=== PATIENT | male | born 1940 | race Caucasian/White ===

== ENCOUNTER 2016-12-10 03:23 | Emergency (ER) | payer MEDICARE ==
[~2016-12-10] VITALS: Ht 182.9 cm; Wt 98.1 kg
[~2016-12-10 03:23] MED LIST: ACLI400A IH; ADVAIR INH; ALBU0.8322 IH; ALBU2.5V4; ALBU2.5V4 IH; ALBU8.5HRX INH; ASP325TEC PO; ASPI-586 PO; ASPI325T32 PO; ATOR40TA PO; AZIT-21 PO; BREO-ELLIPTA INH; BUDE6HFA IH; C250T PO; CEFD300C PO; CEFD300C3 PO; CEPH500C PO; CHOL100011 PO; CIPR2.5D2 OP; CITA-105 PO; CITA40TA11 PO; CODE118S2 PO; CYAN10007 PO; CYAN500L PO; DAPA5TAB PO; DOXY-233 PO; ESCI20TA2; FLUT1AER IH; FLUT1DIS26 IH; HYDR12.525 PO; HYDR1TAB PO; INSU100I29 SC; IPRA3AMP11 IH; IPRA3AMP11 INH; ISOS30TA3 PO; LEVO500T69 PO; LINA5TAB PO; LISI20TA PO; LOPE2TAB17 PO; LORA10TA7 PO; LOSA100T16 PO; LOSA100T28 PO; METF-380 PO; METF1000 PO; METO-333 PO; MTF500T; NEED1DIS; NFPRILOC40; OMEP20CA12 PO; PANT40TA2 PO; PIOG15TA22 PO; PIOG15TA24 PO; PRAS10TA6 PO; PRD20T PO; RANO500T3 PO; RT-ALBUINH INH; SERT100T8 PO; SIMV20TA3 PO; SITA1TAB6; TEST75GE3 TD; TRAZ-144 PO
--- OUTSIDE RECORDS SUMMARY | 2016-12-10 03:30 | XMS REPORT | Continuity of Care Document ---
Author Author [facility] Organization [facility] Address Unknown Phone Unavailable Allergies Active Description Code Type Severity Reaction Onset Reported/Identified Relationship to Patient Clinical Status Yes No Known Drug Allergies [id number] Drug Allergy Unknown N/ A 09/13/2009 Medications Problems Date Dx Coded Attending Type Code Diagnosis Diagnosed By 12/18/2009 Ot 721.0 12/18/2009 Ot 959.19 12/18/2009 Ot E000.8 12/18/2009 Ot E030 12/18/2009 Ot E849.0 12/18/2009 Ot E928.9 08/09/2013 JASMINNDER DO, YVETTE S Ot 250.00 DIAB HOLLIE WO COMPL, TYPE II OR UNSPEC TY 08/09/2013 JASMINNDER DO, YVETTE S Ot 268.9 VITAMIN D DEFICIENCY NOS 08/09/2013 JASMINNDER DO, YVETTE S Ot 272.4 HYPERLIPIDEMIA NEC/NOS 08/09/2013 ORENDER DO, YVETTE S Ot 300.00 ANXIETY STATE NOS 08/09/2013 ORENDER DO, YVETTE S Ot 311 DEPRESSIVE DISORDER NEC 08/09/2013 JASMINNDER DO, YVETTE S Ot 403.90 HYPTNSV CHR KID DIS, UNSPEC, W CHR KD ST 08/09/2013 ORENDER DO, YVETTE S Ot 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 08/09/2013 JASMINNDER DO, YVETTE S Ot 486 PNEUMONIA, ORGANISM NOS 08/09/2013 ORENDER DO, YVETTE S Ot 491.21 OBSTR CHRONIC BRONCHITIS, W (ACUTE) EXAC 08/09/2013 JASMINNDER DO, YVETTE S Ot 530.81 ESOPHAGEAL REFLUX 08/09/2013 JASMINNDER DO, YVETTE S Ot 585.9 CHRONIC KIDNEY DISEASE, UNSPECIFIED 08/09/2013 JASMINNDER DO, YVETTE S Ot 702.0 ACTINIC KERATOSIS 08/09/2013 JASMINNDER DO, YVETTE S Ot 715.90 OSTEOARTHROS NOS-UNSPEC 08/09/2013 [facility] DO, YVETTE S Ot 737.10 KYPHOSIS NOS 08/09/2013 [facility] DO, YVETTE S Ot 782.7 SPONTANEOUS ECCHYMOSES 08/09/2013 [facility] DO, YVETTE S Ot 799.02 HYPOXEMIA 08/09/2013 [facility] DO YVETTE S Ot V04.81 ND FOR PROPHYLACTIC VACCIN AND INOCULATI 09/03/2014 [facility] DO, YVETTE S Ot 786.09 09/03/2014 [facility] DO, YVETTE S Ot 786.50 09/03/2014 [facility] DO YVETTE S Ot V17.3 09/04/2014 [facility] DO YVETTE S Ot 250.00 09/04/2014 [facility] YVETTE S Ot 272.0 09/04/2014 [facility] DO YVETTE S Ot 389.9 09/04/2014 [facility] DO YVETTE S Ot 401.9 09/04/2014 [facility] YVETTE S Ot 486 09/04/2014 [facility] DO, YVETTE S Ot 493.22 09/04/2014 [facility] DO, YVETTE S Ot 530.81 09/04/2014 [facility] DO YVETTE S Ot 696.1 09/04/2014 [facility] DO, YVETTE S Ot 716.90 09/04/2014 [facility] DO, YVETTE S Ot 780.57 09/04/2014 [facility] DO YVETTE S Ot V10.83 09/04/2014 [facility], YVETTE S Ot V12.79 09/04/2014 [facility] DO, YVETTE S Ot V15.82 09/04/2014 [facility] DO YVETTE S Ot 038.9 SEPTICEMIA NOS 09/04/2014 [facility] DO YVETTE S Ot 250.00 DIAB HOLLIE WO COMPL, TYPE II OR UNSPEC TY 09/04/2014 [facility] DO YVETTE S Ot 272.0 PURE HYPERCHOLESTEROLEM 09/04/2014 [facility] DO YVETTE S Ot 389.9 HEARING LOSS NOS 09/04/2014 JERMAIN JACKMAN DOLINE S Ot 401.9 HYPERTENSION NOS 09/04/2014 JERMAIN JACKMNA DOLINE S Ot 481 PNEUMOCOCCAL PNEUMONIA [STREPTOCOCCUS PN 09/04/2014 YVETTE JACKMAN DO S Ot 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, W (ACUTE ) EX 09/04/2014 JERMAIN JACKMAN DOLINE S Ot 530.81 ESOPHAGEAL REFLUX 09/04/2014 JERMAIN JACKMAN DOLINE S Ot 696.1 OTHER PSORIASIS 09/04/2014 ALIZE JACKMAN DOQUELINE S Ot 716.90 ARTHROPATHY NOS-UNSPEC 09/04/2014 ALIZE JACKMAN DOQUELINE S Ot 780.57 UNSPECIFIED SLEEP APNEA 09/04/2014 ARMIN JERMAIN JOHNSONLINE S Ot 799.02 HYPOXEMIA 09/04/2014 JERMAIN JACKMAN DOLINE S Ot 995.91 SEPSIS 09/04/2014 YVETTE JACKMAN DO S Ot V10.83 HX-SKIN MALIGNANCY NEC 09/04/2014 JERMAIN JACKMAN DOLINE S Ot V12.79 PERSONAL HISTORY OTH SPEC DIGESTIVE SYST 09/04/2014 ALIZE JACKMAN DOQUELINE S Ot V15.82 HISTORY OF TOBACCO USE 09/11/2014 JERMAIN JACKMAN DOLINE S Ot 250.02 09/11/2014 JERMAIN JACKMAN DOLINE S Ot 272.0 09/11/2014 ARMIN JERMAIN JOHNSONLINE S Ot 300.00 09/11/2014 JERMAIN JACKMAN DOLINE S Ot 311 09/11/2014 YVETTE JACKMAN DO S Ot 389.9 09/11/2014 JERMAIN JACKMAN DOLINE S Ot 401.9 09/11/2014 ARMIN JERMAIN JOHNSONLINE S Ot 481 09/11/2014 ARMIN ALIZE JOHNSONYVETTE S Ot 491.21 09/11/2014 ARMIN ALIZE JOHNSONYVETTE S Ot 530.81 09/11/2014 YVETTE JACKMAN DO S Ot 696.1 09/11/2014 JERMAIN JACKMAN DOLINE S Ot 716.90 09/11/2014 JERMAIN JACKMAN DOLINE S Ot 780.57 09/11/2014 ARMIN JERMAIN JOHNSONLINE S Ot 785.2 09/11/2014 ORENDER DO, YVETTE S Ot 799.02 09/11/2014 ALIZE JACKMAN DOQUELINE S Ot E932.0 09/11/2014 ALIZE JACKMAN DOQUELINE S Ot V12.79 09/11/2014 JASMINNDBEV JOHNSON YVETTE S Ot V15.81 09/11/2014 JASMINNDBEV JOHNSON YVETTE S Ot V15.82 09/11/2014 ALIZE JACKMAN DOQUELINE S Ot V46.2 09/12/2014 ALIZE JACKMAN DOQUELINE S Ot 038.2 PNEUMOCOCCAL SEPTICEMIA 09/12/2014 GASPER JOHNSON YVETTE S Ot 250.02 DIAB HOLLIE WO COMPL, TYPE II OR UNSPEC TY 09/12/2014 GASPER JOHNSON YVETTE S Ot 272.0 PURE HYPERCHOLESTEROLEM 09/12/2014 GASPER JOHNSON YVETTE S Ot 272.4 HYPERLIPIDEMIA NEC/NOS 09/12/2014 GASPER JOHNSON YVETTE S Ot 300.00 ANXIETY STATE NOS 09/12/2014 ALIZE JACKMAN DOQUELINE S Ot 311 DEPRESSIVE DISORDER NEC 09/12/2014 ALIZE JACKMAN DOQUELINE S Ot 389.9 HEARING LOSS NOS 09/12/2014 ALIZE JACKMAN DOQUELINE S Ot 401.9 HYPERTENSION NOS 09/12/2014 ALIZE JACKMAN DOQUELINE S Ot 414.01 CORONARY ATHEROSCLEROSIS OF [place] CORON 09/12/2014 ALIZE JACKMAN DOQUELINE S Ot 481 PNEUMOCOCCAL PNEUMONIA [STREPTOCOCCUS PN 09/12/2014 ALIZE JACKMAN DOQUELINE S Ot 491.21 OBSTR CHRONIC BRONCHITIS, W (ACUTE) EXAC 09/12/2014 GASPER JOHNSON YVETTE S Ot 518.81 ACUTE RESPIRATORY FAILURE 09/12/2014 GASPER JOHNSON YVETTE S Ot 530.81 ESOPHAGEAL REFLUX 09/12/2014 ALIZE JACKMAN DOQUELINE S Ot 696.1 OTHER PSORIASIS 09/12/2014 GASPER JOHNSON YVETTE S Ot 716.90 ARTHROPATHY NOS-UNSPEC 09/12/2014 ALIZE JACKMAN DOQUELINE S Ot 780.57 UNSPECIFIED SLEEP APNEA 09/12/2014 ALIZE JACKMAN DOQUELINE S Ot 785.2 CARDIAC MURMURS NEC 09/12/2014 ORENDYVETTE PABLO DO Ot 799.02 09/12/2014 YVETTE JACKMAN DO Ot 995.92 SEVERE SEPSIS 09/12/2014 YVETTE JACKMAN DO Ot E932.0 ADV EFF CORTICOSTEROIDS 09/12/2014 YVETTE JACKMAN DO Ot V12.79 PERSONAL HISTORY OTH SPEC DIGESTIVE SYST 09/12/2014 YVETTE JACKMAN DO Ot V15.81 HX OF PAST NONCOMPLIANCE 09/12/2014 YVETTE JACKMAN DO Ot V15.82 HISTORY OF TOBACCO USE 09/12/2014 YVETTE JACKMAN DO Ot V46.2 SUPPLEMENTAL OXYGEN 10/20/2014 Ot 959.19 10/20/2014 Ot E000.8 10/20/2014 Ot E030 10/20/2014 Ot E849.0 10/20/2014 Ot E928.9 10/20/2014 Ot 786.05 10/20/2014 JASMINIRINA JOHNSON YVETTE Donovan Ot 486 10/20/2014 GASPER YVETTE S Ot 496 10/20/2014 YVETTE JACKMAN DO S Ot 786.09 10/20/2014 YVETTE JACKMAN DO S Ot 786.50 10/20/2014 YVETTE JACKMAN DO S Ot V17.3 10/23/2014 YVETTE JACKMAN DO S Ot 250.02 DIAB HOLLIE WO COMPL, TYPE II OR UNSPEC TY 10/23/2014 YVETTE JACKMAN DO S Ot 401.9 HYPERTENSION NOS 10/23/2014 YVETTE JACKMAN DO S Ot 491.21 OBSTR CHRONIC BRONCHITIS, W (ACUTE) EXAC 10/23/2014 YVETTE JACKMAN DO S Ot V12.61 PERSONAL HISTORY, PNEUMONIA ( RECURRENT) 10/23/2014 YVETTE JACKMAN DO S Ot V15.82 HISTORY OF TOBACCO USE 11/04/2014 GASPER JOHNSON YVETTE S Ot 496 11/04/2014 GASPER JOHNSON YVETTE S Ot V57.89 11/04/2014 GASPER JOHNSON YVETTE S Ot 496 12/27/2014 TATA HERMOSILLO APRN Ot 486 PNEUMONIA, ORGANISM NOS 12/27/2014 TATA HERMOSILLO APRN Ot 786.05 SHORTNESS OF BREATH 02/01/2015 ORENDER DO, YVETTE S Ot 496 CHR AIRWAY OBSTRUCT NEC 02/01/2015 ORENDER DO, YVETTE S Ot V57.89 REHABILITATION PROC NEC 02/01/2015 ORENDER DO, YVETTE S Ot 496 02/01/2015 ORENDER DO, YVETTE S Ot V57.89 02/01/2015 ORENDER DO, YVETTE S Ot 496 02/04/2015 ORENDER DO, YVETTE S Ot 496 02/04/2015 ORENDER DO, YVETTE S Ot V57.89 02/04/2015 ORENDER DO, YVETTE S Ot 496 02/04/2015 ORENDER DO, YVETTE S Ot V57.89 02/04/2015 ORENDER DO, YVETTE S Ot 496 02/04/2015 ORENDER DO, YVETTE S Ot V57.89 02/05/2015 ORENDER DO, YVETTE S Ot 496 02/05/2015 ORENDER DO, YVETTE S Ot V57.89 03/08/2015 RAKEL THORPE DO Ot 278.00 03/08/2015 RAKEL THORPE DO Ot 496 03/08/2015 RAKEL THORPE DO Ot 786.09 05/05/2015 ORENDER DO, YVETTE S Ot 496 CHR AIRWAY OBSTRUCT NEC 05/05/2015 ORENDER DO, YVETTE S Ot V57.89 REHABILITATION PROC NEC 05/11/2015 ORENDER DO, YVETTE S Ot 496 05/11/2015 ORENDER DO, YVETTE S Ot V57.89 05/12/2015 ORENDER DO, YVETTE S Ot 496 05/12/2015 ORENDER DO, YVETTE S Ot V57.89 05/18/2015 ORENDER DO, YVETTE S Ot 496 05/18/2015 ORENDER DO, YVETTE S Ot V57.89 05/19/2015 ORENDER DO, YVETTE S Ot 496 05/19/2015 ORENDER DO, YVETTE S Ot V57.89 06/23/2015 ORENDER DO, YVETTE S Ot 496 CHR AIRWAY OBSTRUCT NEC 06/23/2015 GASPER YVETTE Donovan Ot V57.89 REHABILITATION PROC NEC 12/22/2015 YVETTE JACKMAN DO Ot K11.6 12/22/2015 YVETTE JACKMAN DO S Ot R22.1 12/31/2015 YVETTE JACKMAN DO Donovan Ot K11.6 12/31/2015 YVETTE JACKMAN DO Ot R22.1 02/15/2016 YVETTE JACKMAN DO Ot M79.671 PAIN IN RIGHT FOOT 02/18/2016 YVETTE JACKMAN DO S Ot M79.671 PAIN IN RIGHT FOOT 02/20/2016 GASPER YVETTE S Ot M79.671 PAIN IN RIGHT FOOT 03/03/2016 YVETTE JACKMAN DO S Ot M79.671 PAIN IN RIGHT FOOT 06/02/2016 YVETTE JACKMAN DO Ot D64.9 ANEMIA, UNSPECIFIED 06/02/2016 YVETTE JACKMAN DO Ot E11.9 TYPE 2 DIABETES MELLITUS WITHOUT COMPLIC 06/02/2016 YVETTE JACKMAN DO S Ot E66.9 OBESITY, UNSPECIFIED 06/02/2016 YVETTE JACKMAN DO S Ot E78.5 HYPERLIPIDEMIA, UNSPECIFIED 06/02/2016 YVETTE JACKMAN DO S Ot I10 ESSENTIAL (PRIMARY) HYPERTENSION 06/02/2016 YVETTE JACKMAN DO Ot I21.4 NON-ST ELEVATION (NSTEMI) MYOCARDIAL INF 06/02/2016 YVETTE JACKMAN DO Ot I25.10 ATHSCL HEART DISEASE OF [place] CORONARY 06/02/2016 YVETTE JACKMAN DO Ot J44.9 CHRONIC OBSTRUCTIVE PULMONARY DISEASE , U 06/02/2016 YVETTE JACKMAN DO Ot Z68.30 BODY MASS INDEX (BMI) 30.0-30.9, ADULT 06/02/2016 YVETTE JACKMAN DO Ot Z79.4 GROUP HOME (CURRENT) USE OF INSULIN 06/02/2016 YVETTE JACKMAN DO Ot Z87.891 PERSONAL HISTORY OF NICOTINE DEPENDENCE 06/02/2016 ORENDER DO, YVETTE S Ot Z91.19 PATIENT'S NONCOMPLIANCE W [facility] MEDICAL TR 06/20/2016 JARAD COPPOLA HUMAN RESOURCES 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 Ot R06.02 SHORTNESS OF BREATH 06/20/2016 JARAD COPPOLA HUMAN RESOURCES 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 Ot R07.9 CHEST PAIN, UNSPECIFIED 06/20/2016 JARAD COPPOLA HUMAN RESOURCES 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 Ot R53.83 OTHER FATIGUE 06/23/2016 JERMAIN JACKMAN DOLINE S Ot E11.9 TYPE 2 DIABETES MELLITUS WITHOUT COMPLIC 06/23/2016 JERMAIN JACKMAN DOLINE S Ot E78.5 HYPERLIPIDEMIA, UNSPECIFIED 06/23/2016 ALIZE JACKMAN DOQUELINE S Ot I10 ESSENTIAL (PRIMARY) HYPERTENSION 06/23/2016 ALIZE JACKMAN DOQUELINE S Ot I25.10 ATHSCL HEART DISEASE OF [place] CORONARY 06/23/2016 JERMAIN JACKMAN DOLINE S Ot J44.9 CHRONIC OBSTRUCTIVE PULMONARY DISEASE , U 06/23/2016 JERMAIN JACKMAN DOLINE S Ot R07.9 CHEST PAIN, UNSPECIFIED 06/23/2016 JERMAIN JACKMAN DOLINE S Ot Z79.4 GROUP HOME (CURRENT) USE OF INSULIN 06/23/2016 GASPER JOHNSON YVETTE S Ot Z87.891 PERSONAL HISTORY OF NICOTINE DEPENDENCE 06/23/2016 GASPER JOHNSON YVETTE S Ot 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 ANGIOPLASTY IMPLANT 06/28/2016 ALIZE JACKMAN DOQUELINE S Ot 486 PNEUMONIA, ORGANISM NOS 06/28/2016 JASMINNDER ALIZE JOHNSONYVETTE S Ot 496 CHR AIRWAY OBSTRUCT NEC 06/28/2016 ALIZE JACKMAN DOQUELINE S Ot 786.09 RESPIRATORY ABNORM NEC 06/28/2016 ALIZE JACKMAN DOQUELINE S Ot 786.50 CHEST PAIN NOS 06/28/2016 JASMINNDALIZE PABLO DOQUELINE S Ot V17.3 FAM HX-ISCHEM HEART DIS 06/28/2016 ALIZE JACKMAN DOQUELINE S Ot 496 CHR AIRWAY OBSTRUCT NEC 06/28/2016 RAKEL THORPE DO Ot 278.00 OBESITY, NOS 06/28/2016 RAKEL THORPE DO Ot 496 CHR AIRWAY OBSTRUCT NEC 06/28/2016 RAKEL THORPE DO Ot 786.09 RESPIRATORY ABNORM NEC 06/28/2016 YVETTE JACKMAN DO Ot 496 06/28/2016 YVETTE JACKMAN DO Ot V57.89 06/28/2016 YVETTE JACKMAN DO Ot K11.6 MUCOCELE OF SALIVARY GLAND 06/28/2016 YVETTE JACKMAN DO Ot R22.1 LOCALIZED SWELLING, MASS AND LUMP, NECK 06/28/2016 YVETTE JACKMAN DO Ot M79.671 PAIN IN RIGHT FOOT 06/28/2016 ANAT JARAD Marine HUMAN RESOURCES 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 Ot R06.02 SHORTNESS OF BREATH 06/28/2016 ANAT JARAD Marine HUMAN RESOURCES 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 Ot R07.9 CHEST PAIN, UNSPECIFIED 06/28/2016 ANAT JARAD Marine HUMAN RESOURCES 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 Ot R53.83 OTHER FATIGUE 07/07/2016 RANDI SHAFFER FACJosé, ALI FACP CCDS Ot I25.10 ATHSCL HEART DISEASE OF [place] CORONARY 07/07/2016 RANDI SHAFFER FACJosé, ALI FACP CCDS Ot R06.02 SHORTNESS OF BREATH 07/12/2016 RANDI SHAFFER FACC, ALI FACP CCDS Ot I25.10 ATHSCL HEART DISEASE OF [place] CORONARY 07/12/2016 RANDI SHAFFER FACJosé, ALI FACP CCDS Ot R06.02 SHORTNESS OF BREATH 07/19/2016 RANDI SHAFFER FACC, ALI FACP CCDS Ot I25.10 ATHSCL HEART DISEASE OF [place] CORONARY 07/19/2016 RANDI SHAFFER FACC, ALI FACP CCDS Ot R06.02 SHORTNESS OF BREATH 07/27/2016 JOYCE KAYE APRN Ot R91.1 SOLITARY PULMONARY NODULE 07/28/2016 JOYCE KAYE HUMAN RESOURCES 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 Ot R91.1 SOLITARY PULMONARY NODULE 08/01/2016 JOYCE KAYE APRN Ot R91.1 SOLITARY PULMONARY NODULE 08/09/2016 JYOCE KAYE HUMAN RESOURCES 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 Ot R91.1 SOLITARY PULMONARY NODULE 09/04/2016 RAKEL THORPE DO Ot J43.8 OTHER EMPHYSEMA 09/04/2016 RAKEL THORPE DO Ot R06.00 DYSPNEA, UNSPECIFIED 09/04/2016 RAKEL THORPE DO Ot R91.1 SOLITARY PULMONARY NODULE 09/04/2016 RAKEL THORPE DO Ot Z87.891 PERSONAL HISTORY OF NICOTINE DEPENDENCE 09/07/2016 RAKEL THORPE DO Ot J43.8 OTHER EMPHYSEMA 09/07/2016 RAKEL THORPE DO Ot R06.00 DYSPNEA, UNSPECIFIED 09/07/2016 RAKEL THORPE DO Ot R91.1 SOLITARY PULMONARY NODULE 09/07/2016 RAKEL THORPE DO Ot Z87.891 PERSONAL HISTORY OF NICOTINE DEPENDENCE 09/21/2016 RAKEL THORPE DO Ot J43.8 OTHER EMPHYSEMA 09/21/2016 RAKEL THORPE DO Ot R06.00 DYSPNEA, UNSPECIFIED 09/21/2016 RAKEL THORPE DO Ot R91.1 SOLITARY PULMONARY NODULE 09/21/2016 RAKEL THORPE DO Ot Z87.891 PERSONAL HISTORY OF NICOTINE DEPENDENCE Procedures Code Description Performed By Performed On [id number] 06/02/2016 [id number] 06/02/2016 [id number] 06/02/2016 [id number] 06/02/2016 Results Test Result Range Complete blood count (CBC) with automated white blood cell (WBC) differential - 06/01/16 17:35 Blood leukocytes automated count (number/volume) 8.2 10*3/ uL 4.3-11.0 Blood erythrocytes automated count (number/volume) 3.73 10*6 /uL 4.35-5.85 Venous blood hemoglobin measurement (mass/volume) 10.5 g/dL 13.3-17.7 Blood hematocrit (volume fraction) 32 % 40-54 Automated erythrocyte mean corpuscular volume 85 [foz_us] 80-99 Automated erythrocyte mean corpuscular hemoglobin (mass per erythrocyte) 28 pg 25-34 Automated erythrocyte mean corpuscular hemoglobin concentration measurement ( mass/volume) 33 g/dL 32-36 Automated erythrocyte distribution width ratio 13.7 % 10.0-14.5 Automated blood platelet count (count/volume) 211 10*3/uL 130-400 Automated blood platelet mean volume measurement 9.0 [foz_us ] 7.4-10.4 Automated blood neutrophils/100 leukocytes 85 % 42-75 Automated blood lymphocytes/100 leukocytes 7 % 12-44 Blood monocytes/100 leukocytes 7 % 0-12 Automated blood eosinophils/100 leukocytes 0 % 0-10 Automated blood basophils/100 leukocytes 1 % 0-10 Blood neutrophils automated count (number/volume) 7.0 10*3 1.8-7.8 Blood lymphocytes automated count (number/volume) 0.6 10*3 1.0-4.0 Blood monocytes automated count (number/volume) 0.5 10*3 0.0-1.0 Automated eosinophil count 0.0 10*3/uL 0.0-0.3 Automated blood basophil count (count/volume) 0.0 10*3/uL 0.0-0.1 Fibrin D-dimer FEU measurement in platelet poor plasma (mass/volume) - 17:35 Fibrin D-dimer FEU measurement in platelet poor plasma (mass/volume) 0.40 ug/mL 0.00-0.49 Comprehensive metabolic panel - 06/01/16 17:35 Serum or plasma sodium measurement (moles/volume) 139 mmol/ L 135-145 Serum or plasma potassium measurement (moles/volume) 4.6 mmol/L 3.6-5.0 Serum or plasma chloride measurement (moles/volume) 107 mmol /L 98-107 Carbon dioxide 21 mmol/L 21-32 Serum or plasma anion gap determination (moles/volume) 11 mmol/L 5-14 Serum or plasma urea nitrogen measurement (mass/volume) 18 mg/dL 7-18 Serum or plasma creatinine measurement (mass/volume) 1.22 mg /dL 0.60-1.30 Serum or plasma urea nitrogen/creatinine mass ratio 15 NRG Serum or plasma creatinine measurement with calculation of estimated glomerular filtration rate 58 NRG Serum or plasma glucose measurement (mass/volume) 205 mg/dL 70-105 Serum or plasma calcium measurement (mass/volume) 9.2 mg/dL 8.5-10.1 Serum or plasma total bilirubin measurement (mass/volume) 0.3 mg/dL 0.1-1.0 Serum or plasma alkaline phosphatase measurement (enzymatic activity/volume) 55 U/L 40-136 Serum or plasma aspartate aminotransferase measurement (enzymatic activity/ volume) 30 U/L 5-34 Serum or plasma alanine aminotransferase measurement (enzymatic activity/volume ) 43 U/L 0-55 Serum or plasma protein measurement (mass/volume) 6.9 g/dL 6.4-8.2 Serum or plasma albumin measurement (mass/volume) 4.4 g/dL 3.2-4.5 Serum or plasma troponin i.cardiac measurement (mass/volume) - 09/08/16 17:35 Serum or plasma troponin i.cardiac measurement (mass/volume) 0.39 ng/mL <0.30 Serum or plasma lithium measurement (moles/volume) - 06/01/16 17:35 BNP level 39.6 pg/mL <100.0 Complete blood count (CBC) with automated white blood cell (WBC) differential - 06/01/16 19:00 Blood leukocytes automated count (number/volume) 8.2 10*3/ uL 4.3-11.0 Blood erythrocytes automated count (number/volume) 3.63 10*6 /uL 4.35-5.85 Venous blood hemoglobin measurement (mass/volume) 10.3 g/dL 13.3-17.7 Blood hematocrit (volume fraction) 31 % 40-54 Automated erythrocyte mean corpuscular volume 85 [foz_us] 80-99 Automated erythrocyte mean corpuscular hemoglobin (mass per erythrocyte) 28 pg 25-34 Automated erythrocyte mean corpuscular hemoglobin concentration measurement ( mass/volume) 33 g/dL 32-36 Automated erythrocyte distribution width ratio 13.6 % 10.0-14.5 Automated blood platelet count (count/volume) 233 10*3/uL 130-400 Automated blood platelet mean volume measurement 9.4 [foz_us ] 7.4-10.4 Automated blood neutrophils/100 leukocytes 82 % 42-75 Automated blood lymphocytes/100 leukocytes 9 % 12-44 Blood monocytes/100 leukocytes 8 % 0-12 Automated blood eosinophils/100 leukocytes 0 % 0-10 Automated blood basophils/100 leukocytes 1 % 0-10 Blood neutrophils automated count (number/volume) 6.7 10*3 1.8-7.8 Blood lymphocytes automated count (number/volume) 0.8 10*3 1.0-4.0 Blood monocytes automated count (number/volume) 0.7 10*3 0.0-1.0 Automated eosinophil count 0.0 10*3/uL 0.0-0.3 Automated blood basophil count (count/volume) 0.0 10*3/uL 0.0-0.1 PT panel in platelet poor plasma by coagulation assay - 06/01/16 19:00 Prothrombin time (PT) in platelet poor plasma by coagulation assay 13.2 s 12.2-14.7 INR in platelet poor plasma or blood by coagulation assay 1.0 0.8-1.4 Activated partial thromboplastin time (aPTT) in platelet poor plasma bycoagulation assay - 06/01/16 19:00 Activated partial thromboplastin time (aPTT) in platelet poor plasma bycoagulation assay 22 s 24-35 Comprehensive metabolic panel - 06/01/16 19:00 Serum or plasma sodium measurement (moles/volume) 138 mmol/ L 135-145 Serum or plasma potassium measurement (moles/volume) 4.3 mmol/L 3.6-5.0 Serum or plasma chloride measurement (moles/volume) 108 mmol /L 98-107 Carbon dioxide 19 mmol/L 21-32 Serum or plasma anion gap determination (moles/volume) 11 mmol/L 5-14 Serum or plasma urea nitrogen measurement (mass/volume) 19 mg/dL 7-18 Serum or plasma creatinine measurement (mass/volume) 1.22 mg /dL 0.60-1.30 Serum or plasma urea nitrogen/creatinine mass ratio 16 NRG Serum or plasma creatinine measurement with calculation of estimated glomerular filtration rate 58 NRG Serum or plasma glucose measurement (mass/volume) 217 mg/dL 70-105 Serum or plasma calcium measurement (mass/volume) 8.8 mg/dL 8.5-10.1 Serum or plasma total bilirubin measurement (mass/volume) 0.3 mg/dL 0.1-1.0 Serum or plasma alkaline phosphatase measurement (enzymatic activity/volume) 57 U/L 40-136 Serum or plasma aspartate aminotransferase measurement (enzymatic activity/ volume) 29 U/L 5-34 Serum or plasma alanine aminotransferase measurement (enzymatic activity/volume ) 38 U/L 0-55 Serum or plasma protein measurement (mass/volume) 6.9 g/dL 6.4-8.2 Serum or plasma albumin measurement (mass/volume) 4.3 g/dL 3.2-4.5 Magnesium - 06/01/16 19:00 Magnesium 2.3 mg/dL 1.8-2.4 Serum or plasma creatine kinase measurement (enzymatic activity/volume) - 06/01 19:00 Serum or plasma creatine kinase measurement (enzymatic activity/volume) 205 U/L 30-200 Serum or plasma creatine kinase MB measurement (enzymatic activity/volume) - 19:00 Serum or plasma creatine kinase MB measurement (enzymatic activity/volume) 6.7 ng/mL <6.6 Serum or plasma troponin i.cardiac measurement (mass/volume) - 06/01/16 19:00 Serum or plasma troponin i.cardiac measurement (mass/volume) 0.53 ng/mL <0.30 Serum or plasma amylase measurement (enzymatic activity/volume) - 06/01/16 19: 00 Serum or plasma amylase measurement (enzymatic activity/volume) 34 U/L 25-125 Lipase - 06/01/16 19:00 Lipase 49 U/L 8-78 Serum or plasma lithium measurement (moles/volume) - 06/01/16 19:00 BNP level 44.3 pg/mL <100.0 Capillary blood glucose measurement by glucometer (mass/volume) - 06/01/16 23: 26 Capillary blood glucose measurement by glucometer (mass/volume) 219 mg/dL 70-110 Serum or plasma troponin i.cardiac measurement (mass/volume) - 06/02/16 01:12 Serum or plasma troponin i.cardiac measurement (mass/volume) 1.25 ng/mL <0.30 Myoglobin, serum - 06/02/16 01:12 Myoglobin, serum 87.0 ng/mL 10.0-92.0 Complete blood count (CBC) with automated white blood cell (WBC) differential - 06/02/16 03:52 Blood leukocytes automated count (number/volume) 6.6 10*3/ uL 4.3-11.0 Blood erythrocytes automated count (number/volume) 3.46 10*6 /uL 4.35-5.85 Venous blood hemoglobin measurement (mass/volume) 9.8 g/dL 13.3-17.7 Blood hematocrit (volume fraction) 30 % 40-54 Automated erythrocyte mean corpuscular volume 86 [foz_us] 80-99 Automated erythrocyte mean corpuscular hemoglobin (mass per erythrocyte) 28 pg 25-34 Automated erythrocyte mean corpuscular hemoglobin concentration measurement ( mass/volume) 33 g/dL 32-36 Automated erythrocyte distribution width ratio 13.7 % 10.0-14.5 Automated blood platelet count (count/volume) 186 10*3/uL 130-400 Automated blood platelet mean volume measurement 9.7 [foz_us ] 7.4-10.4 Automated blood neutrophils/100 leukocytes 72 % 42-75 Automated blood lymphocytes/100 leukocytes 15 % 12-44 Blood monocytes/100 leukocytes 10 % 0-12 Automated blood eosinophils/100 leukocytes 2 % 0-10 Automated blood basophils/100 leukocytes 1 % 0-10 Blood neutrophils automated count (number/volume) 4.8 10*3 1.8-7.8 Blood lymphocytes automated count (number/volume) 1.0 10*3 1.0-4.0 Blood monocytes automated count (number/volume) 0.7 10*3 0.0-1.0 Automated eosinophil count 0.1 10*3/uL 0.0-0.3 Automated blood basophil count (count/volume) 0.0 10*3/uL 0.0-0.1 Comprehensive metabolic panel - 06/02/16 03:52 Serum or plasma sodium measurement (moles/volume) 141 mmol/ L 135-145 Serum or plasma potassium measurement (moles/volume) 4.0 mmol/L 3.6-5.0 Serum or plasma chloride measurement (moles/volume) 110 mmol /L 98-107 Carbon dioxide 20 mmol/L 21-32 Serum or plasma anion gap determination (moles/volume) 11 mmol/L 5-14 Serum or plasma urea nitrogen measurement (mass/volume) 19 mg/dL 7-18 Serum or plasma creatinine measurement (mass/volume) 1.19 mg /dL 0.60-1.30 Serum or plasma urea nitrogen/creatinine mass ratio 16 NRG Serum or plasma creatinine measurement with calculation of estimated glomerular filtration rate 60 NRG Serum or plasma glucose measurement (mass/volume) 204 mg/dL 70-105 Serum or plasma calcium measurement (mass/volume) 8.7 mg/dL 8.5-10.1 Serum or plasma total bilirubin measurement (mass/volume) 0.2 mg/dL 0.1-1.0 Serum or plasma alkaline phosphatase measurement (enzymatic activity/volume) 48 U/L 40-136 Serum or plasma aspartate aminotransferase measurement (enzymatic activity/ volume) 26 U/L 5-34 Serum or plasma alanine aminotransferase measurement (enzymatic activity/volume ) 36 U/L 0-55 Serum or plasma protein measurement (mass/volume) 6.1 g/dL 6.4-8.2 Serum or plasma albumin measurement (mass/volume) 3.9 g/dL 3.2-4.5 Lipid 1996 panel - 06/02/16 03:52 Serum or plasma triglyceride measurement (mass/volume) 400 mg/dL <150 Serum or plasma cholesterol measurement (mass/volume) 189 mg /dL < 200 Serum or plasma cholesterol in HDL measurement (mass/volume) 35 mg/dL 40-60 Cholesterol in LDL [mass/volume] in serum or plasma by direct assay 121 mg/dL 1-129 Serum or plasma cholesterol in VLDL measurement (mass/volume) 80 mg/dL 5-40 Capillary blood glucose measurement by glucometer (mass/volume) - 06/02/16 06: 30 Capillary blood glucose measurement by glucometer (mass/volume) 187 mg/dL 70-110 Capillary blood glucose measurement by glucometer (mass/volume) - 06/02/16 11: 07 Capillary blood glucose measurement by glucometer (mass/volume) 203 mg/dL 70-110 Capillary blood glucose measurement by glucometer (mass/volume) - 06/02/16 17: 37 Capillary blood glucose measurement by glucometer (mass/volume) 134 mg/dL 70-110 Complete blood count (CBC) with automated white blood cell (WBC) differential - 06/22/16 16:31 Blood leukocytes automated count (number/volume) 8.3 10*3/ uL 4.3-11.0 Blood erythrocytes automated count (number/volume) 3.67 10*6 /uL 4.35-5.85 Venous blood hemoglobin measurement (mass/volume) 10.1 g/dL 13.3-17.7 Blood hematocrit (volume fraction) 31 % 40-54 Automated erythrocyte mean corpuscular volume 85 [foz_us] 80-99 Automated erythrocyte mean corpuscular hemoglobin (mass per erythrocyte) 28 pg 25-34 Automated erythrocyte mean corpuscular hemoglobin concentration measurement ( mass/volume) 33 g/dL 32-36 Automated erythrocyte distribution width ratio 13.4 % 10.0-14.5 Automated blood platelet count (count/volume) 235 10*3/uL 130-400 Automated blood platelet mean volume measurement 9.5 [foz_us ] 7.4-10.4 Automated blood neutrophils/100 leukocytes 79 % 42-75 Automated blood lymphocytes/100 leukocytes 11 % 12-44 Blood monocytes/100 leukocytes 7 % 0-12 Automated blood eosinophils/100 leukocytes 3 % 0-10 Automated blood basophils/100 leukocytes 1 % 0-10 Blood neutrophils automated count (number/volume) 6.5 10*3 1.8-7.8 Blood lymphocytes automated count (number/volume) 0.9 10*3 1.0-4.0 Blood monocytes automated count (number/volume) 0.6 10*3 0.0-1.0 Automated eosinophil count 0.2 10*3/uL 0.0-0.3 Automated blood basophil count (count/volume) 0.0 10*3/uL 0.0-0.1 Comprehensive metabolic panel - 06/22/16 16:31 Serum or plasma sodium measurement (moles/volume) 138 mmol/ L 135-145 Serum or plasma potassium measurement (moles/volume) 4.5 mmol/L 3.6-5.0 Serum or plasma chloride measurement (moles/volume) 104 mmol /L 98-107 Carbon dioxide 20 mmol/L 21-32 Serum or plasma anion gap determination (moles/volume) 14 mmol/L 5-14 Serum or plasma urea nitrogen measurement (mass/volume) 29 mg/dL 7-18 Serum or plasma creatinine measurement (mass/volume) 1.50 mg /dL 0.60-1.30 Serum or plasma urea nitrogen/creatinine mass ratio 19 NRG Serum or plasma creatinine measurement with calculation of estimated glomerular filtration rate 46 NRG Serum or plasma glucose measurement (mass/volume) 197 mg/dL 70-105 Serum or plasma calcium measurement (mass/volume) 9.6 mg/dL 8.5-10.1 Serum or plasma total bilirubin measurement (mass/volume) 0.5 mg/dL 0.1-1.0 Serum or plasma alkaline phosphatase measurement (enzymatic activity/volume) 54 U/L 40-136 Serum or plasma aspartate aminotransferase measurement (enzymatic activity/ volume) 23 U/L 5-34 Serum or plasma alanine aminotransferase measurement (enzymatic activity/volume ) 32 U/L 0-55 Serum or plasma protein measurement (mass/volume) 6.9 g/dL 6.4-8.2 Serum or plasma albumin measurement (mass/volume) 4.4 g/dL 3.2-4.5 Serum or plasma troponin i.cardiac measurement (mass/volume) - 06/22/16 16:31 Serum or plasma troponin i.cardiac measurement (mass/volume) < ng/mL <0.30 Serum or plasma troponin i.cardiac measurement (mass/volume) - 06/22/16 16:31 Serum or plasma troponin i.cardiac measurement (mass/volume) < ng/mL <0.30 PT panel in platelet poor plasma by coagulation assay - 06/22/16 17:20 Prothrombin time (PT) in platelet poor plasma by coagulation assay 13.1 s 12.2-14.7 INR in platelet poor plasma or blood by coagulation assay 1.0 0.8-1.4 Serum or plasma troponin i.cardiac measurement (mass/volume) - 06/22/16 22:18 Serum or plasma troponin i.cardiac measurement (mass/volume) < ng/mL <0.30 Automated blood complete blood count (hemogram) panel - 06/23/16 03:27 Blood leukocytes automated count (number/volume) 7.6 10*3/ uL 4.3-11.0 Blood erythrocytes automated count (number/volume) 3.63 10*6 /uL 4.35-5.85 Venous blood hemoglobin measurement (mass/volume) 10.0 g/dL 13.3-17.7 Blood hematocrit (volume fraction) 31 % 40-54 Automated erythrocyte mean corpuscular volume 84 [foz_us] 80-99 Automated erythrocyte mean corpuscular hemoglobin (mass per erythrocyte) 28 pg 25-34 Automated erythrocyte mean corpuscular hemoglobin concentration measurement ( mass/volume) 33 g/dL 32-36 Automated erythrocyte distribution width ratio 13.3 % 10.0-14.5 Automated blood platelet count (count/volume) 232 10*3/uL 130-400 Automated blood platelet mean volume measurement 10.2 [foz_ us] 7.4-10.4 Whole blood basic metabolic panel - 06/23/16 03:27 Serum or plasma sodium measurement (moles/volume) 138 mmol/ L 135-145 Serum or plasma potassium measurement (moles/volume) 5.0 mmol/L 3.6-5.0 Serum or plasma chloride measurement (moles/volume) 105 mmol /L 98-107 Carbon dioxide 19 mmol/L 21-32 Serum or plasma anion gap determination (moles/volume) 14 mmol/L 5-14 Serum or plasma urea nitrogen measurement (mass/volume) 35 mg/dL 7-18 Serum or plasma creatinine measurement (mass/volume) 1.55 mg /dL 0.60-1.30 Serum or plasma urea nitrogen/creatinine mass ratio 23 NRG Serum or plasma creatinine measurement with calculation of estimated glomerular filtration rate 44 NRG Serum or plasma glucose measurement (mass/volume) 266 mg/dL 70-105 Serum or plasma calcium measurement (mass/volume) 9.9 mg/dL 8.5-10.1 Magnesium - 06/23/16 03:27 Magnesium 2.3 mg/dL 1.8-2.4 Serum or plasma troponin i.cardiac measurement (mass/volume) - 06/23/16 03:27 Serum or plasma troponin i.cardiac measurement (mass/volume) < ng/mL <0.30 Serum or plasma lithium measurement (moles/volume) - 06/23/16 03:27 BNP level 16.8 pg/mL <100.0 Encounters ACCT No. Visit Date/Time Discharge Status Pt. Type Provider Facility Loc./Unit Complaint [id number] 06/22/2016 18:26:00 2015 09:50:00 DIS Inpatient JERMAIN JACKMAN DOLINE S Via [facility] ICU CHEST PAIN/ANGINA [id number] 06/01/2016 19:38:00 2015 17:50:00 DIS Inpatient ALIZE JACKMAN DOQUELINE S Via [facility] ICU CHEST PAIN; ELEVATED TROPONIN [id number] 06/24/2015 08:00:00 2014 23:59:59 CLS Preadmit ALIZE JACKMAN DOQUELINE S Via [facility] PULM COPD [id number] 05/27/2015 10:00:00 2014 00:01:00 DIS Outpatient ALIZE JACKMAN DOQUELINE S Via [facility] PULM COPD [id number] 05/04/2015 10:00:00 2014 00:01:00 DIS Outpatient ALIZE JACKMAN DOQUELINE S [facility] PULM COPD [id number] 02/01/2015 12:53:00 2014 23:59:59 CLS Outpatient RAKEL THORPE DO [facility] RT COPD,NODULES [id number] 01/28/2015 10:00:00 2014 00:01:00 DIS Outpatient ALIZE JACKMAN DOQUELINE S Via [facility] PULM COPD [id number] 12/27/2014 17:23:00 2014 19:17:00 DIS Emergency TATA HERMOSILLO APRN Via [facility] ER SOA [id number] 10/21/2014 11:34:00 2014 10:25:00 DIS Inpatient ORENDER DO YVETTE S [facility] 4TH ACUTE RESPIRATORY DISTRESS COPD [id number] 10/20/2014 10:31:00 2014 23:59:59 CLS Outpatient JASMINNDER DO, YVETTE S [facility] RAD COPD, DYSPENEA [id number] 09/09/2014 03:50:00 2013 10:37:00 DIS Inpatient GASPER DO YVETTE S Via [address] RLL PNEUMONIA W/HYPOXIA [id number] 09/03/2014 07:38:00 2013 14:15:00 DIS Inpatient JASMINNDER DO, YVETTE S Via [address] COPD EXACERBATION [id number] 04/28/2014 07:51:00 2013 23:59:59 CLS Outpatient GASPER DO YVETTE S [facility] CARD DYSPNEA,CP,FAMILIAIL CAD [id number] 08/13/2013 11:44:00 2012 23:59:59 CLS Outpatient GASPER DO YVETTE S [facility] RAD PNEUMONIA,COPD [id number] 08/06/2013 09:47:00 2012 10:35:00 DIS Inpatient GASPER DO, YVETTE S Via [facility] 4TH COPD,HYPOXIA,PROBABLE PNEUMONIA [id number] 09/01/2016 15:23:00 ACT Outpatient RAKEL THORPE DO [facility] RT COPD [id number] 07/26/2016 16:10:00 ACT Outpatient JOYCE KAYE [employer]UM[employer] RES[employer] 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 [facility] RAD R91.1 [id number] 07/06/2016 10:57:00 ACT Outpatient RANDI SHAFFER FACC, TARI BRYANT CCDS [facility] CARD CAD,SOB [id number] 06/28/2016 07:00:00 Document Registration [id number] 06/01/2016 16:53:00 ACT Outpatient JARAD COPPOLA APRN [facility] CARD CHEST PAIN SYNDROME,SOB,FATIGUE [id number] 02/14/2016 11:31:00 ACT Outpatient YVETTE JACKMAN DO [facility] RAD HEEL PAIN [id number] 12/21/2015 08:24:00 ACT Outpatient YVETTE JACKMAN DO [facility] RAD NECK MASS [id number] 10/20/2014 10:31:00 Document Registration [id number] 10/20/2014 10:31:00 Document Registration [id number] 10/20/2014 10:31:00 Document Registration [id number] 10/20/2014 10:31:00 Document Registration [id number] 10/20/2014 10:31:00 Document Registration [id number] 12/22/2009 10:36:00 Document Registration [id number] 12/17/2009 06:57:00 Document Registration [id number] 12/14/2009 08:05:00 Document Registration
[2016-12-10 03:33] LABS: BASOPHILS % (AUTO) 0 % (0-10); EOSINOPHILS # (AUTO) 0.2 10^3/uL (0.0-0.3); EOSINOPHILS % (AUTO) 3 % (0-10); LYMPHOCYTES # (AUTO) 1.2 X 10^3 (1.0-4.0); LYMPHOCYTES % (AUTO) 21 % (12-44); MEAN CORPUSCULAR HEMOGLOBIN 22 PG (25-34); MEAN CORPUSCULAR HGB CONC 29 G/DL (32-36); MEAN CORPUSCULAR VOLUME 73 FL (80-99); MEAN PLATELET VOLUME 8.6 FL (7.4-10.4); MONOCYTES # (AUTO) 0.6 X 10^3 (0.0-1.0); MONOCYTES % (AUTO) 11 % (0-12); NEUTROPHILS # (AUTO) 3.7 X 10^3 (1.8-7.8); NEUTROPHILS % (AUTO) 66 % (42-75); PLATELET COUNT 239 10^3/uL (130-400); RED BLOOD COUNT 3.49 10^6/uL (4.35-5.85); RED CELL DISTRIBUTION WIDTH 16.9 % (10.0-14.5); WHITE BLOOD COUNT 5.7 10^3/uL (4.3-11.0)
--- NOTE | 2016-12-10 03:39 | ED Respiratory ---
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 NO COUGH NO FEVER/SWEATS/CHILLS NO CHEST PAIN NO SWELLING IN LEGS / FEET OR PAIN IN CALVES NO DIZZINESS NO NAUSEA/VOMITING NO PALPITATIONS STATES HE WAS TREATED FOR PNEUMONIA APPROXIMATELY A MONTH AGO WITH ANTIBIOTICS AND STEROIDS PT HAS CAD AND HAD 5 STENTS PLACED 05/2016 AT [facility] AND STATES "THEY DIDN'T GET EVERYTHING" PT HAS A LONG HISTORY OF NON-COMPLIANCE PT STATES HE ARRIVES "I JUST WANT CHECKED OUT AND GO BACK HOME" STATES HE WILL NOT STAY TO BE ADMITTED. PCP: DR. JACKMAN SHORE WORKER: DR. BRYAN Allergies and Home Medications Allergies Coded Allergies: No Known Drug Allergies (Verified , 09/13/09) Home Medications Albuterol Sulfate 2.5 Mg/3 Ml Vial.neb 2.5 MG IH Q4H PRN PRN SHORTNESS OF BREATH (Reported) Albuterol Sulfate 18 Gm Hfa.aer.ad 2 PUFF INH Q6H PRN PRN SHORTNESS OF BREATH ( Reported) Aspirin 81 Mg Tablet.dr 81 MG PO DAILY (Reported) Atorvastatin Calcium 40 Mg Tablet 40 MG PO HS (Reported) Fluticasone/Vilanterol 1 Each Blst.w.dev 1 PUFF IH DAILY (Reported) Hydrochlorothiazide 12.5 Mg Capsule 12.5 MG PO DAILY (Reported) Insulin Detemir 100 Unit/1 Ml Insuln.pen 25 UNITS SC DAILY (Reported) Isosorbide Mononitrate 30 Mg Tab.er.24h 30 MG PO DAILY (Reported) Linagliptin 5 Mg Tablet 10 MG PO DAILY (Reported) Losartan Potassium 100 Mg Tablet 100 MG PO DAILY (Reported) Metformin HCl 1,000 Mg Tablet 1,000 MG PO BID (Reported) Metoprolol Tartrate 25 Mg Tablet 12.5 MG PO BID (Reported) Pantoprazole Sodium 40 Mg Tablet.dr 40 MG PO DAILY (Reported) Prasugrel HCl 10 Mg Tablet 10 MG PO DAILY (Reported) Ranolazine 500 Mg Tab.er.12h #60 500 MG PO BID Prescribed by: SALVATORE BEACH on 06/23/16 0827 Sertraline HCl 100 Mg Tablet 200 MG PO DAILY (Reported) Constitutional: no symptoms reported EENTM: no symptoms reported Respiratory: see HPINo cough, dyspnea on exertion short of breathNo wheezing Cardiovascular: no symptoms reportedNo chest pain, No edema, Hx of InterventionNo palpitations, No syncope, vascular heart diseas Gastrointestinal: no symptoms reported Genitourinary: no symptoms reported Musculoskeletal: no symptoms reported Skin: no symptoms reported Psychiatric/Neurological: No Symptoms Reported Hematologic/Lymphatic: No Symptoms Reported Immunological/Allergic: no symptoms reported Past Lhnuklt-Mazesc-Kmeoki Hx Patient Social History Alcohol Use: Occasionally Uses (HISTORY OF ABUSE, NOW ONLY OCCASIONALLY USES) Recreational Drug Use: No Smoking Status: Former Smoker (2 PPD, QUIT 1994) Type Used: Cigarettes Former Smoker/When Quit: Sep 24, 1994 Recent Hopitalizations: No (HEART STENT AT [facility] 06/04/16) Immunizations Up To Date Tetanus Booster (TDap): More than 5yrs Date of Pneumonia Vaccine: Jun 24, 2011 Date of Influenza Vaccine: Jun 15, 2016 Seasonal Allergies Seasonal Allergies: No Surgeries HX Surgeries: Yes (SKIN CANCER REMOVED FROM BACK, LEFT KNEE SCOPE; BILATERAL CATARACT SURGERY; CARDIAC CATH AND STENTS X 5 05/2016) Surgeries: Cardiac, Coronary Stent, Eye Surgery, Orthopedic Respiratory Hx Respiratory Disorders: Yes Respiratory Disorders: Pneumonia, Sleep Apnea, COPD, Emphysema Cardiovascular Hx Cardiac Disorders: Yes (STENTS X 5) Cardiac Disorders: Coronary Artery Disease, Heart Attack, High Cholesterol, Hypertension Neurological Hx Neurological Disorders: No Reproductive System Hx Reproductive Disorders: No Sexually Transmitted Disease: No HIV/AIDS: No Genitourinary Hx Genitourinary Disorders: No Gastrointestinal Hx Gastrointestinal Disorders: Yes Gastrointestinal Disorders: Chronic Diarrhea Musculoskeletal Hx Musculoskeletal Disorders: Yes (COLLAR BONE, KNEE SURGERY 10 YEAR AGO, LEFT KNEE) Musculoskeletal Disorders: Fractures Endocrine Hx Endocrine Disorders: Yes Endocrine Disorders: Diabetes, Insulin dep HEENT HX ENT Disorders: Yes HEENT Disorders: Cataract Loss of Vision: Denies Hearing Impairment: Hard of Hearing Cancer Hx Cancer: Yes Cancer: Skin Psychosocial Hx Psychiatric Problems: No Integumentary HX Skin/Integumentary Disorder: Yes (ACTINIC KERATOSIS, SKIN CANCER) Skin/Integumentary Disorders: Psoriasis Blood Transfusions Hx Blood Disorders: No Adverse Reaction to a Blood Tr: No Family Medical History Family Medial History: Cancer 09 BROTHER Cancer of colon 09 BROTHER Cataract 03 MOTHER Chest pain 03 MOTHER Congenital heart disease 03 FATHER Congestive heart failure 03 FATHER Family history: Cardiovascular disease 03 FATHER 03 MOTHER Family history: Diabetes mellitus 03 FATHER Family history: Gastrointestinal disease 03 MOTHER Family history: Hypertension 03 MOTHER Hearing loss 03 FATHER Heart disease 03 FATHER History of - respiratory disease 03 FATHER Kidney disease 03 FATHER Myocardial infarction 03 FATHER Stroke 03 FATHER No Family History of: Abdominal aortic aneurysm Jae's disease Alcoholism Aphasia Cystic fibrosis Dementia Dysphagia Family history: Allergy Family history: Alzheimer's disease Family history: Arthritis Family history: Asthma Family history: Breast disease Family history: Coronary thrombosis Family history: Glaucoma Family history: Osteoporosis Family history: Thyroid disorder Headache Hereditary disease History of - anemia History of - disorder History of drug abuse Human immunodeficiency virus (HIV) seropositivity Hypercholesterolemia Infertile Malignant neoplasm of lung Parkinson's disease Prostate cancer Psychotic disorder Seizure disorder Tuberculosis Visual impairment Physical Exam Vital Signs Vital Sign - Last 12Hours 12/10/16 12/10/16 03:23 03:29 Temp 98.9 Pulse 85 Resp 25 B/P 164/63 Pulse Ox 95 O2 Delivery Room Air O2 Flow Rate 2 Capillary Refill : General Appearance: WD/WN mild distress (MILDLY DYSPNEIC) other (SPEECH RAPID AND MUMBLED AND VERY DIFFICULT TO UNDERSTAND--NORMAL FOR PT) HEENT: PERRL/EOMI other (EDENTULOUS. ) Neck: non-tender full range of motion supple normal inspectionNo carotid bruit Respiratory: decreased breath sounds (DIMINISHED BREATH SOUNDS IN ALL LUNG CAMPBELL)No rales, No rhonchi, No wheezing, other (MILDLY DYSPNEIC. 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 no motor/sensory deficits alert normal mood/affect oriented x 3 Skin: normal color warm/dry Focused Exam Lactic Acid Level Laboratory Tests Test 12/10/16 03:27 Alanine Aminotransferase (ALT/SGPT) 17U/L (0-55) Albumin 4.1G/DL (3.2-4.5) Alkaline Phosphatase 56U/L (40-136) Anion Gap 10MMOL/L (5-14) Aspartate Amino Transf (AST/SGOT) 15U/L (5-34) B-Type Natriuretic Peptide 41.4PG/ML (<100.0) BUN/Creatinine Ratio 13 Blood Urea Nitrogen 15MG/DL (7-18) Calcium Level 8.7MG/DL (8.5-10.1) Carbon Dioxide Level 24MMOL/L (21-32) Chloride Level 105MMOL/L (98-107) Creatine Kinase MB 2.8NG/ML (<6.6) Creatinine 1.16MG/DL (0.60-1.30) Estimat Glomerular Filtration Rate > 60 Glucose Level 258MG/DL (70-105) H Potassium Level 4.0MMOL/L (3.6-5.0) Sodium Level 139MMOL/L (135-145) Total Bilirubin 0.4MG/DL (0.1-1.0) Total Creatine Kinase 99U/L (30-200) Total Protein 6.4G/DL (6.4-8.2) Troponin I < 0.30NG/ML (<0.30) Progress/Results/Core Measures Results/Orders Lab Results Laboratory Tests Test 12/10/16 03:27 Range/Units Activated Partial Thromboplast Time 25 24-35 SEC Alanine Aminotransferase (ALT/SGPT) 17 0-55 U/L Albumin 4.1 3.2-4.5 G/DL Alkaline Phosphatase 56 40-136 U/L Anion Gap 10 5-14 MMOL/L Aspartate Amino Transf (AST/SGOT) 15 5-34 U/L B-Type Natriuretic Peptide 41.4 <100.0 PG/ML BUN/Creatinine Ratio 13 Basophils # (Auto) 0.0 0.0-0.1 10^3/uL Basophils (%) (Auto) 0 0-10 % Blood Urea Nitrogen 15 7-18 MG/DL Calcium Level 8.7 8.5-10.1 MG/DL Carbon Dioxide Level 24 21-32 MMOL/L Chloride Level 105 98-107 MMOL/L Creatine Kinase MB 2.8 <6.6 NG/ML Creatinine 1.16 0.60-1.30 MG/DL Eosinophils # (Auto) 0.2 0.0-0.3 10^3/uL Eosinophils (%) (Auto) 3 0-10 % Estimat Glomerular Filtration Rate > 60 Glucose Level 258 H 70-105 MG/DL Hematocrit 26 L 40-54 % Hemoglobin 7.5 L 13.3-17.7 G/DL INR Comment 1.0 0.8-1.4 Lymphocytes # (Auto) 1.2 1.0-4.0 X 10^3 Lymphocytes (%) (Auto) 21 12-44 % Mean Corpuscular Hemoglobin 22 L 25-34 PG Mean Corpuscular Hemoglobin Concent 29 L 32-36 G/DL Mean Corpuscular Volume 73 L 80-99 FL Mean Platelet Volume 8.6 7.4-10.4 FL Monocytes # (Auto) 0.6 0.0-1.0 X 10^3 Monocytes (%) (Auto) 11 0-12 % Neutrophils # (Auto) 3.7 1.8-7.8 X 10^3 Neutrophils (%) (Auto) 66 42-75 % Platelet Count 239 130-400 10^3/uL Potassium Level 4.0 3.6-5.0 MMOL/L Prothrombin Time 13.3 12.2-14.7 SEC Red Blood Count 3.49 L 4.35-5.85 10^6/uL Red Cell Distribution Width 16.9 H 10.0-14.5 % Sodium Level 139 135-145 MMOL/L Total Bilirubin 0.4 0.1-1.0 MG/DL Total Creatine Kinase 99 30-200 U/L Total Protein 6.4 6.4-8.2 G/DL Troponin I < 0.30 <0.30 NG/ML White Blood Count 5.7 4.3-11.0 10^3/uL My Orders Orders-CIERA MADDEN DO Cbc With Automated Diff (12/10/16 03:24) Comprehensive Metabolic Panel (12/10/16 03:24) Creatine Kinase (12/10/16 03:24) Creatine Kinase Mb (12/10/16 03:24) Partial Thromboplastin Time (12/10/16 03:24) Protime With Inr (12/10/16 03:24) Troponin I (12/10/16 03:24) Chest 1 View, Ap/Pa Only (12/10/16 03:24) O2 (12/10/16 03:24) Ekg Tracing (12/10/16 03:24) BNP (12/10/16 03:24) Monitor-Rhythm Ecg Trace Only (12/10/16 03:24) Saline Lock/Iv-Start (12/10/16 03:24) Methylprednisolone Sod Succ (Solu-Medrol (12/10/16 03:45) Albuterol/Ipra Inhalation Soln (Duoneb I (12/10/16 03:45) Dexamethasone Injection (Decadron Inject (12/10/16 03:45) Rt Request For Service (12/10/16 03:31) Svn Sm Volume Nebulizer Rt-Rfs (12/10/16 03:31) Ceftriaxone Injection (Rocephin Injectio (12/10/16 04:00) Albuterol/Ipra Inhalation Soln (Duoneb I (12/10/16 04:15) Rt Request For Service (12/10/16 04:03) Svn Sm Volume Nebulizer Rt-Rfs (12/10/16 04:03) Ondansetron Injection (Zofran Injectio (12/10/16 04:15) Ceftriaxone Injection (Rocephin Injectio (12/10/16 04:08) Ns (Ivpb) (Sodium Chloride 0.9% Ivpb Bag (12/10/16 04:08) Medications Given in ED Current Medications Medications Dose Ordered Sig/Regino Route Start Time Stop Time Status Last Admin Dose Admin Albuterol/ Ipratropium 3 ml ONCE ONCE INH 12/10/16 03:45 12/10/16 03:46 DC 12/10/16 03:42 3 ML Albuterol/ Ipratropium 3 ml ONCE ONCE INH 12/10/16 04:15 12/10/16 04:16 DC 12/10/16 04:15 3 ML Ceftriaxone Sodium/Sodium Chloride 50 ml @ 100 mls/hr ONCE ONCE IV 12/10/16 04:00 12/10/16 04:29 UNV 12/10/16 04:15 100 MLS/HR Dexamethasone Sodium Phosphate 20 mg 20 mg ONCE ONCE IH 12/10/16 03:45 12/10/16 03:46 DC 12/10/16 03:42 20 MG Methylprednisolone Sodium Succinate 125 mg ONCE ONCE IVP 12/10/16 03:45 12/10/16 03:46 DC 12/10/16 03:36 125 MG Ondansetron HCl 4 mg ONCE ONCE IVP 12/10/16 04:15 12/10/16 04:16 DC 12/10/16 04:14 4 MG Vital Signs/I&O Vital Sign - Last 12Hours 12/10/16 12/10/16 12/10/16 12/10/16 03:23 03:29 03:42 04:16 Temp 98.9 Pulse 85 Resp 25 B/P 164/63 Pulse Ox 95 100 97 95 O2 Delivery Room Air Nasal Cannula O2 Flow Rate 2 2 2 Progress Note : Progress Note O2 SATS UP TO 96% ON ROOM AIR ON ARRIVAL NEB TREATMENT GIVEN WITH INCREASED AERATION-NOW PT WITH MILD WHEEZING. STATES HE FEELS LIKE HE CAN TAKE A DEEPER BREATH. REPEAT NEB TREATMENT GIVEN--INCREASED AERATION, STILL WITH WHEEZING. PT ADAMANTLY REFUSES ADMIT. AMA PAPERS SIGNED. RISKS/BENEFITS DISCUSSED ECG Initial ECG Impression Time: 03:29 Initial ECG Rate: 74 Initial ECG Rhythm: Normal Sinus (PVC) Initial ECG Comparisson: Unchanged Diagnostic Imaging Comments CXR--BIBASILAR INFILTRATES, PENDING RADIOLOGIST REVIEW Reviewed: Reviewed by Me Departure Impression Impression: Primary Impression: Pneumonia Additional Impressions: COPD (chronic obstructive pulmonary disease) ANEMIA-NEW ONSET, UNKNOWN ETIOLOGY Disposition: 07 AGAINST MEDICAL ADVICE Condition: Against Medical Advice Departure-Patient Inst. Referrals: YVETTE JACKMAN DO (PCP/Family) Primary Care Physician Patient Instructions: Chronic Obstructive Pulmonary Disease (COPD), Including Emphysema, Normocytic Normochromic Anemia (DC), Pneumonia, Adult (DC) Add. Discharge Instructions: FOLLOW UP WITH YOUR DR TOMORROW RETURN TO ER IF WORSE Scripts Methylprednisolone (Medrol)4 Mg Tab.ds.pk4 Mg PO UD #1 PKG Prov:CIERA MADDEN DO 12/10/16 Azithromycin (Zithromax)500 Mg [id number] Mg PO DAILY #5 TAB FOR INFECTION Prov:CIERA MADDEN DO 12/10/16 Cefdinir 300 Mg [id number] Mg PO BID FOR INFECTION #20 CAP Prov:CIERA MADDEN DO 12/10/16 CIERA MADDEN DO Dec 10, 2016 03:39
[2016-12-10] MEDS ORDERED: methylPREDNISolone 125 MG (Solu-MEDROL) VIAL IVP ONE (03:45)
[2016-12-10] MEDS ORDERED: DEXAMETHASONE 4 MG/ML SDV (DECADRON) IH ONE (03:45)
[2016-12-10] MEDS ORDERED: RT-ALBUTEROL/IPRATROPIUM 3 ML (DUONEB) VIAL INH ONE ×2 (03:45→04:15)
[2016-12-10 03:46] LABS: PROTHROMBIN TIME PATIENT 13.3 SEC (12.2-14.7)
[2016-12-10 03:56] LABS: ALANINE AMINOTRANSFERASE 17 U/L (0-55); ALBUMIN 4.1 G/DL (3.2-4.5); ANION GAP 10 MMOL/L (5-14); ASPARTATE AMINO TRANSFERASE 15 U/L (5-34); BILIRUBIN,TOTAL 0.4 MG/DL (0.1-1.0); BLOOD UREA NITROGEN 15 MG/DL (7-18); BUN/CREATININE RATIO 13; CALCIUM 8.7 MG/DL (8.5-10.1); CARBON DIOXIDE 24 MMOL/L (21-32); CHLORIDE 105 MMOL/L (98-107); CREATINE KINASE 99 U/L (30-200); CREATININE SERUM 1.16 MG/DL (0.60-1.30); GFR ESTIMATED > 60; GLUCOSE 258 MG/DL (70-105); SODIUM 139 MMOL/L (135-145); TOTAL PROTEIN 6.4 G/DL (6.4-8.2)
[2016-12-10] MEDS ORDERED: cefTRIAXone INJECTION 1,000 MG in NS (IVPB) 50 ML IV ONE (04:00)
[2016-12-10 04:03] LABS: TROPONIN I < 0.30 NG/ML (<0.30)
[2016-12-10] MEDS ORDERED: cefTRIAXone 1 GM (ROCEPHIN) VIAL ONE (04:08)
[2016-12-10] MEDS ORDERED: NS (IVPB) 50 ML ONE (04:08)
[2016-12-10] MEDS ORDERED: ONDANSETRON 4 MG/2 ML (SDV) Z0FRAN IVP ONE (04:15)
[2016-12-10] MEDS ORDERED: CEFD300C3 PO (04:47)
[2016-12-10] MEDS ORDERED: AZIT500T PO (04:47)
[2016-12-10] MEDS ORDERED: METH4TAB PO (04:47)
[2016-12-10 04:50] VITALS: BP 162/68
--- NOTE | 2016-12-10 08:39 | Diagnostic Imaging Report ---
EXAM: Portable erect AP chest at 3:35. INDICATION: Shortness of breath. FINDINGS: The heart size is within normal limits and stable when compared to 06/22/2016. In the interval since the previous study, a vague area of increased density has developed in the right infrahilar region. This finding could be secondary to superimposition of the bronchovascular and osseous structures alone. However, the possibility that there is an element of mild pneumonia/atelectasis in this area should still be considered. The right upper lung and left lung base are generally clear. The mediastinum is not widened. The osseous structures are intact. The deformity of the left clavicle seen previously is again evident. IMPRESSION: 1. There is a question of mild pneumonia/atelectasis involving the right lung base. Clinical followup is recommended. 2. No other acute abnormality is identified. Dictated by: Dictated on workstation # [id number]
== END 2016-12-10 04:50 | disposition left against medical advice (07) ==
LOC: EDUNIT# 03:23 → ER 03:25
DX: J18.9 Pneumonia, unspecified organism (principal); J44.1 Chronic obstructive pulmonary disease with (acute) exacerbation; I10 Essential (primary) hypertension; E11.9 Type 2 diabetes mellitus without complications; I25.10 Atherosclerotic heart disease of native coronary artery without angina pectoris; Z79.84 Long term (current) use of oral hypoglycemic drugs; Z79.4 Long term (current) use of insulin; Z79.899 Other long term (current) drug therapy; Z87.891 Personal history of nicotine dependence; Z95.5 Presence of coronary angioplasty implant and graft
CPT/HCPCS: 36415; 71010; 80053; 82550; 82553; 83880; 84484; 85025; 85610; 85730; 93005; 93041; 94640; 96365; 96375

== ENCOUNTER → 2016-12-22 | Outpatient (CLI) | payer MEDICARE ==
[~2016-12-22] VITALS: Ht 182.9 cm; Wt 98.1 kg
[~2016-12-22] MED LIST changes: +ACETAMINOPHEN 325 MG TABLET/CAPLET (TYLENOL) PO ONE; +AZIT500T PO; +FUROSEMIDE 40 MG/4 ML INJ (LASIX) IVP ONE; +FUROSEMIDE 40 MG/4 ML INJ (LASIX) ONE; +METH4TAB PO; +NS IV 500 ML 500 ML ONE; +diphenhydrAMINE 25 MG TAB (BENADRYL) PO ONE
[2016-12-22 11:20] VITALS: BP 134/57
[2016-12-22 11:35] VITALS: BP 127/61
[2016-12-22 13:00] VITALS: BP 132/60
[2016-12-22 13:25] VITALS: BP 132/60
[2016-12-22 13:40] VITALS: BP 129/59
[2016-12-22 15:38] VITALS: BP 134/77
== END ==
LOC: SDC 09:45
PROVIDERS: ATTEND Family Medicine
DX: D64.9 Anemia, unspecified (principal)
CPT/HCPCS: 36430; 86850; 86900; 86901; 86920; 96374; 96375

== ENCOUNTER → 2017-01-29 | Outpatient (CLI) | payer MEDICARE ==
[~2017-01-29] MED LIST changes: -ACETAMINOPHEN 325 MG TABLET/CAPLET (TYLENOL) PO ONE; -FUROSEMIDE 40 MG/4 ML INJ (LASIX) IVP ONE; -FUROSEMIDE 40 MG/4 ML INJ (LASIX) ONE; -NS IV 500 ML 500 ML ONE; -diphenhydrAMINE 25 MG TAB (BENADRYL) PO ONE
--- NOTE | 2017-01-29 16:47 | Diagnostic Imaging Report ---
EXAMINATION: Two views of the left shoulder. INDICATION: Left shoulder pain post fall. FINDINGS: No fracture, dislocation, or radiopaque foreign body is seen. There is glenohumeral and acromioclavicular joint osteoarthritis demonstrated by joint space narrowing and osteophyte formation. There are many inferior osteophytes at the glenohumeral joint and predominantly superior osteophytes at the AC joint. There is a focal ossification superior to the left AC joint which may relate to capsular focal ossification related to prior injury. IMPRESSION: Left acromioclavicular and glenohumeral joint osteoarthritis. Dictated by: Dictated on workstation # [id number]
== END ==
LOC: RAD 15:48
PROVIDERS: ATTEND Nurse Practitioner Family
DX: S49.92XA Unspecified injury of left shoulder and upper arm, initial encounter (principal); W19.XXXA Unspecified fall, initial encounter; Y99.8 Other external cause status
CPT/HCPCS: 73030

== ENCOUNTER 2017-06-13 23:37 | Inpatient (IN) | payer MEDICARE ==
[~2017-06-13] VITALS: Ht 182.9 cm; Wt 105.0 kg
[2017-06-13] MEDS ORDERED: RT-ALBUTEROL/IPRATROPIUM 3 ML (DUONEB) VIAL ONE (23:55)
[2017-06-14] VITALS (21 sets, daily range): BP systolic 86–135; BP diastolic 39–81
[2017-06-14] MEDS ORDERED: ASPIRIN 81 MG CHEW (CHILDREN'S ASA) PO ONE
[2017-06-14] MEDS ORDERED: methylPREDNISolone 125 MG (Solu-MEDROL) VIAL IVP ONE
[2017-06-14] MEDS ORDERED: RT-ALBUTEROL/IPRATROPIUM 3 ML (DUONEB) VIAL INH ONE
[2017-06-14] MEDS ORDERED: ONDANSETRON 4 MG/2 ML (SDV) Z0FRAN IVP PRN
[2017-06-14] MEDS ORDERED: RT-IPRATROPIUM (ATROVENT) 0.5MG/2.5ML AMP IH ONE (00:07)
[2017-06-14] MEDS ORDERED: RT-ALBUTEROL SULF 2.5 MG/3 ML PRE-MIX VIAL ONE (00:07)
[2017-06-14 00:08] LABS: BASOPHILS % (AUTO) 0 % (0-10); EOSINOPHILS # (AUTO) 0.2 10^3/uL (0.0-0.3); EOSINOPHILS % (AUTO) 2 % (0-10); LYMPHOCYTES # (AUTO) 0.9 X 10^3 (1.0-4.0); LYMPHOCYTES % (AUTO) 6 % (12-44); MEAN CORPUSCULAR HEMOGLOBIN 27 PG (25-34); MEAN CORPUSCULAR HGB CONC 33 G/DL (32-36); MEAN CORPUSCULAR VOLUME 83 FL (80-99); MEAN PLATELET VOLUME 9.9 FL (7.4-10.4); MONOCYTES # (AUTO) 1.4 X 10^3 (0.0-1.0); MONOCYTES % (AUTO) 10 % (0-12); NEUTROPHILS # (AUTO) 11.6 X 10^3 (1.8-7.8); NEUTROPHILS % (AUTO) 82 % (42-75); PLATELET COUNT 242 10^3/uL (130-400); RED CELL DISTRIBUTION WIDTH 16.3 % (10.0-14.5); WHITE BLOOD COUNT 14.1 10^3/uL (4.3-11.0)
--- NOTE | 2017-06-14 00:09 | ED Respiratory ---
General Chief Complaint: Respiratory Problems Stated Complaint: SOB Nursing Triage Note: SOA Source: patient, family Exam Limitations: no limitations History of Present Illness Time seen by provider: 23:55 Initial Comments Patient presents to ER by private conveyance with a primary complaint of shortness of breath, nausea, sweats and a history of COPD, CAD, chills but no documented fever. Patient says he does not want to be intubated. Patient was in the ER in [place] in approximately one week ago was seen for the same thing shortness of breath diagnosed with COPD exacerbation and discharged from the ER with albuterol refills and a 5 day prednisone taper. He was doing better but then started getting worse again this afternoon. His has been using the albuterol inhaler quite a bit and does not feel that is been helping as much. Patient's had a dry cough and chills but her thermometer could not take the temperature as the batteries were . They have completed the prednisone taper. Days ago and states they've been taking all the rest of his medications on time. Of note he has a history of coronary disease for which she was seen by a cardiovascular surgeon and told that he was not a candidate for the surgery and that he should avoid being intubated as he would likely never get off intubation. He has had 4 stents in the past and told that he has disease and 5 other vessels and that the surgery would be the only way to treat them so he is now medically managed. 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 Allergies and Home Medications Allergies Coded Allergies: No Known Drug Allergies (Verified , 09/13/09) Home Medications Albuterol Sulfate 2.5 Mg/3 Ml Vial.neb, 2.5 MG IH Q4H PRN for SHORTNESS OF BREATH, (Reported) Albuterol Sulfate 18 Gm Hfa.aer.ad, 2 PUFF INH Q6H PRN for SHORTNESS OF BREATH, (Reported) Aspirin 81 Mg Tablet.dr, 81 MG PO DAILY, (Reported) Atorvastatin Calcium 40 Mg Tablet, 40 MG PO HS, (Reported) Fluticasone/Vilanterol 1 Each Blst.w.dev, 1 PUFF IH DAILY, (Reported) Hydrochlorothiazide 12.5 Mg Capsule, 12.5 MG PO DAILY, (Reported) Insulin Detemir 100 Unit/1 Ml Insuln.pen, 25 UNITS SC DAILY, (Reported) Isosorbide Mononitrate 30 Mg Tab.er.24h, 30 MG PO DAILY, (Reported) Linagliptin 5 Mg Tablet, 10 MG PO DAILY, (Reported) Losartan Potassium 100 Mg Tablet, 100 MG PO DAILY, (Reported) Metformin HCl 1,000 Mg Tablet, 1,000 MG PO BID, (Reported) Methylprednisolone 4 Mg Tab.ds.pk, 4 MG PO UD, #1 Prescribed by: CIERA MADDEN on 12/10/16 0447 Metoprolol Tartrate 25 Mg Tablet, 12.5 MG PO BID, (Reported) Pantoprazole Sodium 40 Mg Tablet.dr, 40 MG PO DAILY, (Reported) Prasugrel HCl 10 Mg Tablet, 10 MG PO DAILY, (Reported) Ranolazine 500 Mg Tab.er.12h, 500 MG PO BID, #60 Ref 1 Prescribed by: SALVATORE BEACH on 06/23/16 0827 Sertraline HCl 100 Mg Tablet, 200 MG PO DAILY, (Reported) Constitutional: chills, diaphoresis, No fever, malaise, weakness EENTM: No ear discharge, No ear pain Respiratory: cough, phlegm, short of breath, No stridor, wheezing Cardiovascular: No chest pain, No edema, Hx of Intervention, No palpitations, No syncope, vascular heart diseas Gastrointestinal: No abdominal pain, No constipation, No diarrhea, nausea, No vomiting Genitourinary: No discharge, No dysuria Musculoskeletal: No back pain, No joint pain, No joint swelling Skin: No pruritus, No rash Psychiatric/Neurological: Denies Headache, Denies Numbness, Denies Paresthesia Past Datmvgn-Cihqcx-Cdddzz Hx Patient Social History Alcohol Use: Occasionally Uses Number of Drinks Today: AA Alcohol Beverage of Choice: Beer Recreational Drug Use: No Smoking Status: Former Smoker Type Used: Cigarettes Former Smoker, Quit: May 25, 1996 2nd Hand Smoke Exposure: Yes Recent Foreign Travel: No Contact w/Someone Who Travel: No Recent Infectious Disease Expo: No Recent Hopitalizations: No Immunizations Up To Date Tetanus Booster (TDap): More than 5yrs Date of Pneumonia Vaccine: Jun 24, 2011 Date of Influenza Vaccine: Jun 15, 2016 Seasonal Allergies Seasonal Allergies: No Surgeries History of Surgeries: Yes (SKIN CANCER REMOVED FROM BACK) Surgeries: Cardiac, Coronary Stent, Eye Surgery, Orthopedic Respiratory History of Respiratory Disorde: Yes Respiratory Disorders: Pneumonia, Sleep Apnea, COPD, Emphysema Currently Using CPAP: Yes Currently Using BIPAP: No Cardiovascular History of Cardiac Disorders: Yes (STENTS X 5) Cardiac Disorders: Coronary Artery Disease, Heart Attack, High Cholesterol, Hypertension Neurological History of Neurological Disord: No Reproductive System Hx Reproductive Disorders: No Sexually Transmitted Disease: No HIV/AIDS: No Genitourinary History of Genitourinary Disor: No Gastrointestinal History of Gastrointestinal Di: Yes Gastrointestinal Disorders: Chronic Diarrhea Musculoskeletal History of Musculoskeletal Dis: Yes (COLLAR BONE, KNEE SURGERY 10 YEAR AGO, LEFT KNEE) Musculoskeletal Disorders: Fractures Endocrine History of Endocrine Disorders: Yes Endocrine Disorders: Diabetes, Insulin dep HEENT HEENT Disorders: Cataract Loss of Vision: Denies Hearing Impairment: Hard of Hearing Cancer History of Cancer: Yes Cancer: Skin Psychosocial History of Psychiatric Problem: No Integumentary History of Skin or Integumenta: Yes (ACTINIC KERATOSIS, SKIN CANCER) Skin/Integumentary Disorders: Psoriasis Blood Transfusions History of Blood Disorders: No Adverse Reaction to a Blood Tr: No Family Medical History Family Medial History: Cancer 09 BROTHER Cancer of colon 09 BROTHER Cataract 03 MOTHER Chest pain 03 MOTHER Congenital heart disease 03 FATHER Congestive heart failure 03 FATHER Family history: Cardiovascular disease 03 FATHER 03 MOTHER Family history: Diabetes mellitus 03 FATHER Family history: Gastrointestinal disease 03 MOTHER Family history: Hypertension 03 MOTHER Hearing loss 03 FATHER Heart disease 03 FATHER History of - respiratory disease 03 FATHER Kidney disease 03 FATHER Myocardial infarction 03 FATHER Stroke 03 FATHER No Family History of: Abdominal aortic aneurysm Charlton's disease Alcoholism Aphasia Cystic fibrosis Dementia Dysphagia Family history: Allergy Family history: Alzheimer's disease Family history: Arthritis Family history: Asthma Family history: Breast disease Family history: Coronary thrombosis Family history: Glaucoma Family history: Osteoporosis Family history: Thyroid disorder Headache Hereditary disease History of - anemia History of - disorder History of drug abuse Human immunodeficiency virus (HIV) seropositivity Hypercholesterolemia Infertile Malignant neoplasm of lung Parkinson's disease Prostate cancer Psychotic disorder Seizure disorder Tuberculosis Visual impairment Physical Exam Vital Signs Vital Sign - Last 12Hours 06/13/17 06/13/17 23:50 23:59 Temp 97.8 Pulse 132 Resp 26 B/P (MAP) 82/46 Pulse Ox 91 O2 Delivery Nasal Cannula O2 Flow Rate 5.00 Capillary Refill : Less Than 3 Seconds General Appearance: WD/WN, moderate distress Eyes: Bilateral Eye Normal Inspection, Bilateral Eye PERRL, Bilateral Eye EOMI HEENT: PERRL/EOMI, normal ENT inspection, TMs normal, pharynx normal, other ( dry mucous membranes) Neck: non-tender, full range of motion, supple, normal inspection Respiratory: chest non-tender, respiratory distress, decreased breath sounds, accessory muscle use, wheezing Cardiovascular: normal peripheral pulses (tachycardia), regular rate, rhythm Gastrointestinal: normal bowel sounds, non tender, soft Extremities: non-tender, no pedal edema, normal capillary refill Neurologic/Psychiatric: alert, oriented x 3 Skin: normal color, diaphoresis Progress/Results/Core Measures Results/Orders Lab Results Laboratory Tests Test 06/13/17 23:54 06/13/17 23:58 06/14/17 01:11 Range/Units White Blood Count 14.1 H 4.3-11.0 10^3/uL Red Blood Count 4.10 L 4.35-5.85 10^6/uL Hemoglobin 11.2 L 13.3-17.7 G/DL Hematocrit 34 L 40-54 % Mean Corpuscular Volume 83 80-99 FL Mean Corpuscular Hemoglobin 27 25-34 PG Mean Corpuscular Hemoglobin Concent 33 32-36 G/DL Red Cell Distribution Width 16.3 H 10.0-14.5 % Platelet Count 242 130-400 10^3/uL Mean Platelet Volume 9.9 7.4-10.4 FL Neutrophils (%) (Auto) 82 H 42-75 % Lymphocytes (%) (Auto) 6 L 12-44 % Monocytes (%) (Auto) 10 0-12 % Eosinophils (%) (Auto) 2 0-10 % Basophils (%) (Auto) 0 0-10 % Neutrophils # (Auto) 11.6 H 1.8-7.8 X 10^3 Lymphocytes # (Auto) 0.9 L 1.0-4.0 X 10^3 Monocytes # (Auto) 1.4 H 0.0-1.0 X 10^3 Eosinophils # (Auto) 0.2 0.0-0.3 10^3/uL Basophils # (Auto) 0.0 0.0-0.1 10^3/uL Neutrophils % (Manual) 85 % Lymphocytes % (Manual) 4 % Monocytes % (Manual) 8 % Eosinophils % (Manual) 2 % Basophils % (Manual) 0 % Band Neutrophils 1 % Polychromasia SLIGHT Anisocytosis SLIGHT Macrocytosis SLIGHT Elliptocytes SLIGHT Prothrombin Time 13.2 12.2-14.7 SEC INR Comment 1.0 0.8-1.4 Activated Partial Thromboplast Time 22 L 24-35 SEC Sodium Level 135 135-145 MMOL/L Potassium Level 4.6 3.6-5.0 MMOL/L Chloride Level 98 98-107 MMOL/L Carbon Dioxide Level 21 21-32 MMOL/L Anion Gap 16 H 5-14 MMOL/L Blood Urea Nitrogen 18 7-18 MG/DL Creatinine 1.35 H 0.60-1.30 MG/DL Estimat Glomerular Filtration Rate 52 BUN/Creatinine Ratio 13 Glucose Level 313 H 70-105 MG/DL Calcium Level 9.5 8.5-10.1 MG/DL Phosphorus Level 1.9 L 2.3-4.7 MG/DL Magnesium Level 1.6 L 1.8-2.4 MG/DL Total Bilirubin 0.7 0.1-1.0 MG/DL Aspartate Amino Transf (AST/SGOT) 10 5-34 U/L Alanine Aminotransferase (ALT/SGPT) 13 0-55 U/L Alkaline Phosphatase 62 40-136 U/L Myoglobin 103.6 H 10.0-92.0 NG/ML Troponin I < 0.30 <0.30 NG/ML B-Type Natriuretic Peptide 22.6 <100.0 PG/ML Total Protein 7.1 6.4-8.2 GM/DL Albumin 4.3 3.2-4.5 GM/DL C-Reactive Protein High Sensitivity 5.00 H 0.00-0.50 MG/DL Blood Gas Puncture Site R RAD Blood Gas Patient Temperature 97.8 Arterial Blood pH 7.41 7.37-7.43 Arterial Blood Partial Pressure CO2 40 35-45 MMHG Arterial Blood Partial Pressure O2 116 H 79-93 MMHG Arterial Blood HCO3 25 23-27 MMOL/L Arterial Blood Total CO2 26.6 21.0-31.0 MMOL/L Arterial Blood Oxygen Saturation 99 94-100 % Arterial Blood Base Excess 1.1 -2.5-2.5 MMOL/L Ahsan Test YES-POS Blood Gas Ventilator Setting NO Blood Gas Inspired Oxygen 6L My Orders Orders - JOSE KATZ Cbc With Automated Diff (06/13/17 23:58) Comprehensive Metabolic Panel (06/13/17 23:58) Magnesium (06/13/17 23:58) Protime With Inr (06/13/17 23:58) Partial Thromboplastin Time (06/13/17 23:58) Ua Culture If Indicated (06/13/17:58) Blood Culture (06/13/17 23:58) Phosphorus (06/13/17 23:58) Ekg Tracing (06/13/17 23:58) Cardiac Profile 1 (06/13/17 23:58) Myoglobin Serum (06/13/17 23:58) O2 (06/13/17 23:58) Monitor-Rhythm Ecg Trace Only (06/13/17 23:58) Aspirin Chewable Tablet (Baby Aspirin Ch (06/14/17 00:00) Saline Lock/Iv-Start (06/13/17 23:58) BNP (06/13/17 23:58) Ondansetron Injection (Zofran Injectio (06/14/17 00:00) Saline Lock/Iv-Start (06/13/17 23:58) Vital Signs Adult Sepsis Patie Q1HR (06/13/17 23:58) Remove Rings In Anticipation O (06/13/17 23:58) Albuterol/Ipra Inhalation Soln (Duoneb I (06/14/17 00:00) Svn Sm Volume Nebulizer Rt-Rfs (06/13/17 23:58) Methylprednisolone Sod Succ (Solu-Medrol (06/14/17 00:00) Chest 1 View, Ap/Pa Only (06/14/17 00:01) Albuterol/Ipra Inhalation Soln (Duoneb I (06/13/17 23:55) Manual Differential (06/13/17 23:54) Ipratropium 0.02% Neb Solution (Atrovent (06/14/17 00:07) Albuterol Pre-Mix Nebs (Rt) (Proventil P (06/14/17 00:07) Albuterol Pre-Mix Nebs (Rt) (Proventil P (06/14/17 00:30) Svn Sm Volume Nebulizer Rt-Rfs (06/14/17 00:22) Hs C Reactive Protein (06/14/17 00:22) Arterial Blood Gas (06/14/17 00:47) Magnesium Oxide Tablet (Mag Ox Tablet) (06/14/17 01:30) Azithromycin Injection (Zithromax Inject (06/14/17 01:45) Ekg Tracing (06/14/17 01:48) Medications Given in ED Current Medications Medications Dose Ordered Sig/Regino Route Start Time Stop Time Status Last Admin Dose Admin Albuterol Sulfate 2.5 mg STK-MED ONCE .ROUTE 06/14/17 00:07 06/14/17 00:14 DC 06/14/17 00:22 15 MG Albuterol/ Ipratropium 3 ml STK-MED ONCE .ROUTE 06/13/17 23:55 06/14/17 00:03 DC 06/14/17 00:05 3 ML Aspirin 324 mg ONCE ONCE PO 06/14/17 00:00 06/14/17 00:03 DC 06/14/17 00:09 324 MG Ipratropium [place] 0.5 mg STK-MED ONCE IH 06/14/17 00:07 06/14/17 00:14 DC 06/14/17 00:22 0.5 MG Methylprednisolone Sodium Succinate 125 mg ONCE ONCE IVP 06/14/17 00:00 06/14/17 00:03 DC 06/14/17 00:09 125 MG Ondansetron HCl 4 mg ONCE PRN IVP 06/14/17 00:00 06/14/17 00:09 DC 06/14/17 00:09 4 MG Vital Signs/I&O Vital Sign - Last 12Hours 06/13/17 06/13/17 06/14/17 06/14/17 23:50 23:59 00:06 00:09 Temp 97.8 97.8 Pulse 132 Resp 26 B/P (MAP) 82/46 Pulse Ox 91 93 94 O2 Delivery Nasal Cannula Nasal Cannula Nasal Cannula O2 Flow Rate 5.00 5.00 5.00 06/14/17 06/14/17 06/14/17 00:15 00:22 00:30 Pulse 119 118 Resp 28 14 B/P (MAP) 90/50 121/63 Pulse Ox 94 95 96 O2 Delivery Nasal Cannula Nasal Cannula Nasal Cannula O2 Flow Rate 5.00 5.00 6.00 Blood Pressure Mean: 58 Progress Note : Time: 01:44 Progress Note EKG pattern during his respiratory distress most consistent with strain pattern. We'll get another EKG now that he is much better feeling. After the 17- 1/2 mg of albuterol and Atrovent he is breathing much better and sounds better. ECG Initial ECG Impression Date: Jun 14, 2017 Initial ECG Impression Time: 00:11 Initial ECG Rate: 119 Initial ECG Rhythm: S.Tach Initial ECG Intervals: Normal Initial ECG Impression: Nonspecific Changes Initial ECG Comparisson: Changed Comment Patient shows a 1 block T-wave elevation in the lower leads 3, aVF, 2 but without reciprocal changes nor does he have significant enough T-wave elevation to be considered STEMI. Most likely represents a strain pattern. Diagnostic Imaging Diagonstic Imaging: Xray Plain Films/CT/US/NM/MRI: chest Comments Left Basilar atelectasis without inflitrates Reviewed: Reviewed by Me Departure Communication (Admissions) Time/Spoke to Admitting Phy: 02:[address] Barakat who agrees with plan and will see the patient in the morning. Impression Impression: Primary Impression: COPD exacerbation Additional Impressions: Hypotension Qualified Codes: I95.89 - Other hypotension Hypoxia Elevated CK-MB level Disposition: ADMITTED INPATIENT Condition: Stable Admissions Decision to Admit Reason: Admit from ER (General) Decision to Admit/Date: Jun 14, 2017 Time/Decision to Admit Time: 03:02 Departure-Patient Inst. Referrals: YVETTE BARAKAT DO (PCP/Family) Primary Care Physician Copy Copies To 1: YVETTE BARAKAT DO Copies To 2: TARI STEPEHNS MD FACP FAC [facility] JOSE KATZ Jun 14, 2017 00:09
[2017-06-14 00:15] LABS: PROTHROMBIN TIME PATIENT 13.2 SEC (12.2-14.7)
[2017-06-14 00:27] LABS: ANISOCYTOSIS SLIGHT; BAND NEUTROPHILS 1 %; BASOPHILS % (MANUAL) 0 %; EOSINOPHILS % (MANUAL) 2 %; LYMPHOCYTES % (MANUAL) 4 %; NEUTROPHILS % (MANUAL) 85 %; POLYCHROMASIA SLIGHT
[2017-06-14 00:30] LABS: ALBUMIN 4.3 GM/DL (3.2-4.5); BILIRUBIN,TOTAL 0.7 MG/DL (0.1-1.0); CALCIUM 9.5 MG/DL (8.5-10.1); CREATININE SERUM 1.35 MG/DL (0.60-1.30); MAGNESIUM 1.6 MG/DL (1.8-2.4); PHOSPHORUS 1.9 MG/DL (2.3-4.7); POTASSIUM 4.6 MMOL/L (3.6-5.0); TOTAL PROTEIN 7.1 GM/DL (6.4-8.2)
[2017-06-14] MEDS ORDERED: RT-ALBUTEROL SULF 2.5 MG/3 ML PRE-MIX VIAL INH SCH (00:30)
[2017-06-14 00:37] LABS: MYOGLOBIN SERUM 103.6 NG/ML (10.0-92.0)
[2017-06-14 01:14] LABS: ABG BASE EXCESS 1.1 MMOL/L (-2.5-2.5); ABG HCO3 25 MMOL/L (23-27); ABG OXYGEN SATURATION 99 % (94-100); ABG PCO2 40 MMHG (35-45); ABG PH 7.41 (7.37-7.43); ABG PO2 116 MMHG (79-93); ABG TCO2 26.6 MMOL/L (21.0-31.0)
[2017-06-14 01:15] LABS: ALLENS TEST YES-POS; PATIENT TEMP 97.8
[2017-06-14] MEDS ORDERED: MAGNESIUM OXIDE (MAG-OX)400 MG TAB PO ONE (01:30)
[2017-06-14] MEDS ORDERED: AZITHROMYCIN INJECTION 500 MG in NS (IVPB) 250 ML IV ONE (01:45)
[2017-06-14 03:14] LABS: BILIRUBIN,URINE NEGATIVE (NEGATIVE); KETONES,URINE 1+ (NEGATIVE); LEUKOCYTE ESTERASE ,URINE NEGATIVE (NEGATIVE); NITRITE,URINE NEGATIVE (NEGATIVE); PH,URINE 5 (5-9); PROTEIN,URINE 2+ (NEGATIVE); UROBILINOGEN,URINE NORMAL (NORMAL)
[2017-06-14 03:20] LABS: HYALINE CASTS, URINE RARE /LPF; SQUAMOUS EPITHELIAL CELL,UR RARE /HPF
[2017-06-14] MEDS ORDERED: ONDANSETRON 4 MG/2 ML (SDV) Z0FRAN IV PRN (04:00)
[2017-06-14] MEDS ORDERED: ENOXAPARIN 100 MG/1 ML (LOVENOX) SYR SC SCH (04:15)
[2017-06-14] MEDS ORDERED: RT-ALBUTEROL/IPRATROPIUM 3 ML (DUONEB) VIAL IH PRN (04:15)
[2017-06-14] MEDS ORDERED: ACETAMINOPHEN 500 MG TAB (TYLENOL) PO PRN (04:15)
[2017-06-14] MEDS: ATORVASTATIN 40 MG (LIPITOR) TABLET PO SCH ×2 (04:22→20:58)
[2017-06-14] MEDS: methylPREDNISolone 125 MG (Solu-MEDROL) VIAL IV SCH ×3 (06:54→20:56)
[2017-06-14] MEDS: PANTOPRAZOLE 40 MG (PROTONIX) TAB PO SCH (06:55)
[2017-06-14] MEDS: RT-ALBUTEROL/IPRATROPIUM 3 ML (DUONEB) VIAL IH SCH ×5 (07:13→22:22)
--- NOTE | 2017-06-14 07:18 | Diagnostic Imaging Report ---
INDICATION: Dyspnea. 0006 hours Comparison is made to study of 12/10/2016. FINDINGS: Heart size and pulmonary vascularity are within normal limits. There is bilateral air trapping. Prominent interstitial markings are noted in the lung bases. No significant pleural fluid is seen. IMPRESSION: Basilar atelectasis and/or scarring without other evidence of acute abnormality or adverse change. Dictated by: Dictated on workstation # [id number]
[2017-06-14] MEDS ORDERED: inSUlin (REGULAR) HUMAN 1 UNIT/0.01 ML (CHARGE PER UNIT) ONE (07:26)
[2017-06-14] MEDS: inSUlin (REGULAR) HUMAN 1 UNIT/0.01 ML (CHARGE PER UNIT) SC SCH ×3 (07:35→17:01)
[2017-06-14 08:12] LABS: BASOPHILS % (AUTO) 0 % (0-10); EOSINOPHILS % (AUTO) 0 % (0-10); LYMPHOCYTES # (AUTO) 0.3 X 10^3 (1.0-4.0); LYMPHOCYTES % (AUTO) 2 % (12-44); MEAN CORPUSCULAR HEMOGLOBIN 27 PG (25-34); MEAN CORPUSCULAR HGB CONC 32 G/DL (32-36); MEAN CORPUSCULAR VOLUME 84 FL (80-99); MEAN PLATELET VOLUME 10.1 FL (7.4-10.4); MONOCYTES # (AUTO) 0.6 X 10^3 (0.0-1.0); MONOCYTES % (AUTO) 4 % (0-12); NEUTROPHILS # (AUTO) 12.5 X 10^3 (1.8-7.8); NEUTROPHILS % (AUTO) 93 % (42-75); PLATELET COUNT 239 10^3/uL (130-400); RED BLOOD COUNT 3.83 10^6/uL (4.35-5.85); RED CELL DISTRIBUTION WIDTH 16.4 % (10.0-14.5); WHITE BLOOD COUNT 13.5 10^3/uL (4.3-11.0)
[2017-06-14 08:28] LABS: CALCIUM 9.4 MG/DL (8.5-10.1); CREATININE SERUM 1.59 MG/DL (0.60-1.30); MAGNESIUM 1.9 MG/DL (1.8-2.4); PHOSPHORUS 4.2 MG/DL (2.3-4.7); POTASSIUM 4.6 MMOL/L (3.6-5.0)
[2017-06-14] MEDS ORDERED: ASPIRIN E.C. 325 MG (ECOTRIN) TABLET PO SCH (09:00)
--- NOTE | 2017-06-14 09:45 | Consultation-Cardiology ---
HPI-Cardiology Cardiology Consultation: Date of Consultation 06/14/17 Date of Admission Attending Physician Lita Barakat DO Admitting Physician Lita Barakat DO Consulting Physician DARREL RUSSELL GLB-Acchet-Rvsxws Hx Patient Social History Alcohol Use: Occasionally Uses Recreational Drug Use: No Smoking Status: Former Smoker Former smoker/When Quit: Sep 24, 1994 Type Used: Cigarettes 2nd Hand Smoke Exposure: Yes Recent Foreign Travel: No Recent Infectious Disease Expo: No Hospitalization with Isolation: Denies Physical Abuse Screen: No Sexual Abuse: No Immunizations Up To Date Tetanus Booster (TDap): More than 5yrs Date of Pneumonia Vaccine: Jun 24, 2011 Date of Influenza Vaccine: Jun 15, 2016 Past Medical History PMH As described under Assessment. Family Medical History Family History: Cancer 09 BROTHER Cancer of colon 09 BROTHER Cataract 03 MOTHER Chest pain 03 MOTHER Congenital heart disease 03 FATHER Congestive heart failure 03 FATHER Family history: Cardiovascular disease 03 FATHER 03 MOTHER Family history: Diabetes mellitus 03 FATHER Family history: Gastrointestinal disease 03 MOTHER Family history: Hypertension 03 MOTHER Hearing loss 03 FATHER Heart disease 03 FATHER History of - respiratory disease 03 FATHER Kidney disease 03 FATHER Myocardial infarction 03 FATHER Stroke 03 FATHER No Family History of: Abdominal aortic aneurysm Jae's disease Alcoholism Aphasia Cystic fibrosis Dementia Dysphagia Family history: Allergy Family history: Alzheimer's disease Family history: Arthritis Family history: Asthma Family history: Breast disease Family history: Coronary thrombosis Family history: Glaucoma Family history: Osteoporosis Family history: Thyroid disorder Headache Hereditary disease History of - anemia History of - disorder History of drug abuse Human immunodeficiency virus (HIV) seropositivity Hypercholesterolemia Infertile Malignant neoplasm of lung Parkinson's disease Prostate cancer Psychotic disorder Seizure disorder Tuberculosis Visual impairment Allergies and Home Medications Allergies Coded Allergies: No Known Drug Allergies (Verified , 09/13/09) Home Medications Acetaminophen 500 Mg Tablet, 1,000 MG PO Q6H PRN for PAIN-MILD, (Reported) TAKES 2 (500MG) TABLETS Albuterol Sulfate 18 Gm Hfa.aer.ad, 2 PUFF INH Q6H PRN for SHORTNESS OF BREATH, (Reported) Amlodipine Besylate 5 Mg Tablet, 5 MG PO DAILY, (Reported) Aspirin 81 Mg Tablet.dr, 81 MG PO DAILY, (Reported) Atorvastatin Calcium 40 Mg Tablet, 40 MG PO DAILY, (Reported) Clopidogrel Bisulfate 75 Mg Tablet, 75 MG PO DAILY, (Reported) Gabapentin 600 Mg Tablet, 600 MG PO HS, (Reported) Glimepiride 2 Mg Tablet, 2 MG PO DAILY, (Reported) Hydrocodone/Acetaminophen 1 Each Tablet, 1 TAB PO Q6H PRN for PAIN-MODERATE, ( Reported) Ipratropium/Albuterol Sulfate 3 Ml Ampul.neb, 3 ML NEB QID PRN for SHORTNESS OF BREATH, (Reported) Isosorbide Mononitrate 30 Mg Tab.er.24h, 30 MG PO DAILY, (Reported) Losartan Potassium 100 Mg Tablet, 100 MG PO DAILY, (Reported) Metformin HCl 1,000 Mg Tablet, 1,000 MG PO BID, (Reported) Metoprolol Tartrate 25 Mg Tablet, 25 MG PO DAILY, (Reported) Pantoprazole Sodium 40 Mg Tablet.dr, 40 MG PO DAILY, (Reported) Ropinirole HCl 4 Mg Tablet, 4 MG PO HS, (Reported) Tiotropium Br/Olodaterol HCl 4 Gm Mist.inhal, 2 PUFF INH BID, (Reported) Physical Exam-Cardiology Physical Exam Vital Signs/I&O Vital Sign - Last 12Hours 06/15/17 06/15/17 06/15/17 06/15/17 02:00 03:00 03:20 04:00 Pulse 75 71 68 Resp 22 29 19 B/P (MAP) 114/72 112/52 91/56 Pulse Ox 96 O2 Delivery Nasal Cannula Nasal Cannula Nasal Cannula Nasal Cannula O2 Flow Rate 5.00 5.00 6.00 5.00 06/15/17 06/15/17 06/15/17 06/15/17 04:00 05:00 06:00 06:15 Pulse 68 69 Resp 18 15 B/P (MAP) 119/62 132/78 Pulse Ox 96 95 O2 Delivery Nasal Cannula Nasal Cannula Nasal Cannula Nasal Cannula O2 Flow Rate 5.00 5.00 5.00 6.00 06/15/17 06/15/17 06/15/17 06/15/17 07:00 07:00 08:00 09:39 Temp 98.5 Pulse 82 Pulse Ox 100 O2 Delivery Nasal Cannula Nasal Cannula Nasal Cannula O2 Flow Rate 5.00 5.00 6.00 Capillary Refill : Less Than 3 Seconds Data Review Labs Laboratory Tests 06/14/17 14:20: Troponin I 0.76*H 06/14/17 16:45: Glucometer 516*H 06/14/17 19:51: Glucometer 458*H 06/14/17 21:04: Glucometer 399H 06/14/17 22:01: Glucometer 352H 06/14/17 22:48: Glucometer 324H 06/15/17 00:03: Glucometer 283H 06/15/17 00:22: Sodium Level 136, Potassium Level 3.7, Chloride Level 102, Carbon Dioxide Level 22, Anion Gap 12, Blood Urea Nitrogen 25H, Creatinine 1.22, Estimat Glomerular Filtration Rate 58, BUN/Creatinine Ratio 20, Glucose Level 257H, Calcium Level 8.9, Phosphorus Level 2.3, Albumin 3.6 06/15/17 00:57: Glucometer 262H 06/15/17 02:03: Glucometer 219H 06/15/17 03:03: Glucometer 178H 06/15/17 03:57: Glucometer 172H 06/15/17 04:28: White Blood Count 13.6H, Red Blood Count 3.45L, Hemoglobin 9.3L, Hematocrit 29L , Mean Corpuscular Volume 83, Mean Corpuscular Hemoglobin 27, Mean Corpuscular Hemoglobin Concent 32, Red Cell Distribution Width 16.2H, Platelet Count 220, Mean Platelet Volume 9.6, Neutrophils (%) (Auto) 91H, Lymphocytes (%) (Auto) 4L , Monocytes (%) (Auto) 6, Eosinophils (%) (Auto) 0, Basophils (%) (Auto) 0, Neutrophils # (Auto) 12.3H, Lymphocytes # (Auto) 0.5L, Monocytes # (Auto) 0.7, Eosinophils # (Auto) 0.0, Basophils # (Auto) 0.0, Sodium Level 140, Potassium Level 3.9, Chloride Level 106, Carbon Dioxide Level 23, Anion Gap 11, Blood Urea Nitrogen 25H, Creatinine 1.02, Estimat Glomerular Filtration Rate > 60, BUN /Creatinine Ratio 25, Glucose Level 147H, Calcium Level 8.8, Phosphorus Level 2.6, Magnesium Level 2.1 06/15/17 05:07: Glucometer 157H 06/15/17 05:54: Glucometer 142H 06/15/17 06:53: Glucometer 164H 06/15/17 08:01: Glucometer 195H 06/15/17 09:01: Glucometer 249H 06/15/17 10:26: Glucometer 232H 06/15/17 11:27: Glucometer 196H Microbiology 06/14/17 Blood Culture - Preliminary, Resulted No growth Radiology NAME: DEVIN MORALES MED REC#: [id number] PT STATUS: ADM IN : 1940 PHYSICIAN: JOSE KATZ MD ADMIT DATE: 06/14/17/ICU Signed Date of Exam: 06/14/17 CHEST 1 VIEW, AP/PA ONLY INDICATION: Dyspnea. 0006 hours Comparison is made to study of 12/10/2016. FINDINGS: Heart size and pulmonary vascularity are within normal limits. There is bilateral air trapping. Prominent interstitial markings are noted in the lung bases. No significant pleural fluid is seen. IMPRESSION: Basilar atelectasis and/or scarring without other evidence of acute abnormality or adverse change. Dictated by: Dictated on workstation # [id number] Dict: 06/14/1714 Trans: 06/14/17802 Interpreted by: TIANA NOLASCO MD Electronically signed by: TIANA NOLASCO MD 06/14/17 0803 A/P-Cardiology Assessment/Admission Diagnosis Marked anemia, diagnosed in November 2016, that is being managed by his pcp, Dr Barakat Symptoms of shortness of breath and chest discomfort have improved after blood transufusions in December 2016 Normal global left ventricular systolic function with ejection fraction of approximately 60%. Trivial to mild mitral and tricuspid regurgitation. Mild aortic valve sclerosis without evidence of significant valvular stenosis. Mild concentric left ventricular hypertrophy. Mild diastolic dysfunction of the left ventricle. Pulmonary artery systolic pressure is estimated to be approximately 40 to 45 mmHg. Per echocardiogram of June 2016 Multivessel CAD on cath of 06/02/16; conidered high-risk for CABG and underwent multivessel PCI at [facility] by Dr Lainez: Promus BAKARI to mid LAD, PTCA to distal LAD, Resolute BAKARI to distal LCX, Promus x 2 BAKARI stenting to prox to distal RCA, failed PTCA to OM1 Carotid arterial disease on u/s of 07/28/16: Less than 40% MIGUEL; Approx 60% LICA No evidence of AAA on a screening scan of 07/28/16 Advanced COPD, managed by Dr Chacon Quit smoking in the late . We have advised to continue to refrain from tobacco use DM II H/o hypertension BHARGAV, managed by Dr Chacon Hyperlipidemia, treated with atorvastatin and followed by Dr Barakat Surgery on R ear for skin cancer (details unkown) by Dr Swanson in December 2016, followed by Dr Swanson Clinical Quality Measures DVT/VTE Risk/Contraindication: Risk Factor Score Per Nursin RFS Level Per Nursing on Admit: 2=Moderate DARREL ARRIAGA Jun 14, 2017 09:45
--- NOTE | 2017-06-14 09:57 | Consultation-Cardiology ---
HPI-Cardiology Cardiology Consultation: Date of Consultation 06/14/17 Time Seen by Provider: 09:40 Date of Admission Attending Physician Lita Barakat DO Admitting Physician Lita Barakat DO Consulting Physician TARI BRYAN MD, MA, FACP, FACC, FSCAI, CCDS Physician requesting consult: Dr Barakat HPI: Chief Complaint: Shortness of breath HPI: 76 yo man with known advanced COPD who has been having increasing shortness of breath for over a week. Presented with marked shortness of breath and hypoxemia. Intubation was considered, but pat refused. Shortness of breath somewhat better this am. No cp. Has gen malaise and tiredness. Has had recent presentation with similar symptoms to a [place] [facility] (about a week ago) and has been treated for ac exac of COPD. Denies palp or leg swelling or syncope. Did have chills yesterday, but did not take his tem Review of Systems-Cardiology Review of Systems Constitutional: malaise, tiredness, No weight loss, No weight gain Eyes: No vision change Ears/Nose/Throat: No ear discharge, No nasal drainage, No recent hearing loss Respiratory: As described under HPI Cardiovascular: As described under HPI Gastrointestinal: No constipation, No diarrhea, No nausea, No vomiting Genitourinary: No dysuria, No hematuria, No urine frequency changes Musculoskeletal: back pain (chronic) Skin: No ulcerations Psychiatric/Neurological: No seizure, No focal weakness, No syncope Hematologic: No bleeding abnormalities [id number] Hx Patient Social History Alcohol Use: Occasionally Uses Recreational Drug Use: No Smoking Status: Former Smoker Former smoker/When Quit: Sep 24, 1994 Type Used: Cigarettes 2nd Hand Smoke Exposure: Yes Recent Foreign Travel: No Recent Infectious Disease Expo: No Hospitalization with Isolation: Denies Physical Abuse Screen: No Sexual Abuse: No Immunizations Up To Date Tetanus Booster (TDap): More than 5yrs Date of Pneumonia Vaccine: Jun 24, 2011 Date of Influenza Vaccine: Jun 15, 2016 Past Medical History PMH As described under Assessment. Family Medical History Family History: Cancer 09 BROTHER Cancer of colon 09 BROTHER Cataract 03 MOTHER Chest pain 03 MOTHER Congenital heart disease 03 FATHER Congestive heart failure 03 FATHER Family history: Cardiovascular disease 03 FATHER 03 MOTHER Family history: Diabetes mellitus 03 FATHER Family history: Gastrointestinal disease 03 MOTHER Family history: Hypertension 03 MOTHER Hearing loss 03 FATHER Heart disease 03 FATHER History of - respiratory disease 03 FATHER Kidney disease 03 FATHER Myocardial infarction 03 FATHER Stroke 03 FATHER No Family History of: Abdominal aortic aneurysm Jae's disease Alcoholism Aphasia Cystic fibrosis Dementia Dysphagia Family history: Allergy Family history: Alzheimer's disease Family history: Arthritis Family history: Asthma Family history: Breast disease Family history: Coronary thrombosis Family history: Glaucoma Family history: Osteoporosis Family history: Thyroid disorder Headache Hereditary disease History of - anemia History of - disorder History of drug abuse Human immunodeficiency virus (HIV) seropositivity Hypercholesterolemia Infertile Malignant neoplasm of lung Parkinson's disease Prostate cancer Psychotic disorder Seizure disorder Tuberculosis Visual impairment Allergies and Home Medications Allergies Coded Allergies: No Known Drug Allergies (Verified , 09/13/09) Home Medications Albuterol Sulfate 2.5 Mg/3 Ml Vial.neb, 2.5 MG IH Q4H PRN for SHORTNESS OF BREATH, (Reported) Albuterol Sulfate 18 Gm Hfa.aer.ad, 2 PUFF INH Q6H PRN for SHORTNESS OF BREATH, (Reported) Aspirin 81 Mg Tablet.dr, 81 MG PO DAILY, (Reported) Atorvastatin Calcium 40 Mg Tablet, 40 MG PO HS, (Reported) Fluticasone/Vilanterol 1 Each Blst.w.dev, 1 PUFF IH DAILY, (Reported) Hydrochlorothiazide 12.5 Mg Capsule, 12.5 MG PO DAILY, (Reported) Insulin Detemir 100 Unit/1 Ml Insuln.pen, 25 UNITS SC DAILY, (Reported) Isosorbide Mononitrate 30 Mg Tab.er.24h, 30 MG PO DAILY, (Reported) Linagliptin 5 Mg Tablet, 10 MG PO DAILY, (Reported) Losartan Potassium 100 Mg Tablet, 100 MG PO DAILY, (Reported) Metformin HCl 1,000 Mg Tablet, 1,000 MG PO BID, (Reported) Methylprednisolone 4 Mg Tab.ds.pk, 4 MG PO UD, #1 Prescribed by: CIERA MADDEN on 12/10/16 0447 Metoprolol Tartrate 25 Mg Tablet, 12.5 MG PO BID, (Reported) Pantoprazole Sodium 40 Mg Tablet.dr, 40 MG PO DAILY, (Reported) Prasugrel HCl 10 Mg Tablet, 10 MG PO DAILY, (Reported) Ranolazine 500 Mg Tab.er.12h, 500 MG PO BID, #60 Ref 1 Prescribed by: SALVATORE BEACH on 06/23/16 0827 Sertraline HCl 100 Mg Tablet, 200 MG PO DAILY, (Reported) Physical Exam-Cardiology Physical Exam Vital Signs/I&O Vital Sign - Last 12Hours 06/13/17 06/13/17 06/14/17 06/14/17 23:50 23:59 00:06 00:09 Temp 97.8 97.8 Pulse 132 Resp 26 B/P (MAP) 82/46 Pulse Ox 91 93 94 O2 Delivery Nasal Cannula Nasal Cannula Nasal Cannula O2 Flow Rate 5.00 5.00 5.00 06/14/17 06/14/17 06/14/17 06/14/17 00:15 00:22 00:30 03:20 Temp 98.0 Pulse 119 118 91 Resp 28 14 29 B/P (MAP) 90/50 121/63 Pulse Ox 94 95 96 100 O2 Delivery Nasal Cannula Nasal Cannula Nasal Cannula Nasal Cannula O2 Flow Rate 5.00 5.00 6.00 4.00 06/14/17 06/14/17 06/14/17 06/14/17 03:58 03:58 04:00 04:00 Temp 96.5 96.5 Pulse 91 91 Resp 18 18 B/P (MAP) 102/56 102/56 Pulse Ox 97 97 96 O2 Delivery Nasal Cannula Nasal Cannula Nasal Cannula Nasal Cannula O2 Flow Rate 5.00 5.00 5.00 5.00 06/14/17 06/14/17 06/14/17 06/14/17 04:25 05:00 06:00 07:13 Pulse 91 80 80 Resp 27 23 B/P (MAP) 108/81 102/78 Pulse Ox 97 96 92 97 O2 Delivery Nasal Cannula Nasal Cannula Nasal Cannula O2 Flow Rate 5.00 5.00 4.00 Capillary Refill : Less Than 3 Seconds Constitutional: AAO x 3, well-developed, well-nourished, other (moderately short of breath even at rest) HEENT: PERRL, EOMI, hearing is well preserved, No xanthelasmas are seen Neck: carotid pulses are 2 + bilaterally, with good upstrokes Respiratory: No accessory muscle use, other (Generally diminished air entry and increased exp phase) Cardiovascular: regular rate-rhythm, S1 and S2, systolic murmur (faint [place] at card base) Gastrointestinal: No tender, soft, No guarding, No rebound, audible bowel sounds Extremities: No clubbing, No cyanosis, No significant edema Neurologic/Psychiatric: oriented x 3, grossly intact, power is 5/5 both on sides Skin: No rash on exposed areas, No ulcerations on exposed areas Data Review Labs Laboratory Tests 06/13/17 23:54: White Blood Count 14.1H, Red Blood Count 4.10L, Hemoglobin 11.2L, Hematocrit 34L , Mean Corpuscular Volume 83, Mean Corpuscular Hemoglobin 27, Mean Corpuscular Hemoglobin Concent 33, Red Cell Distribution Width 16.3H, Platelet Count 242, Mean Platelet Volume 9.9, Neutrophils (%) (Auto) 82H, Lymphocytes (%) (Auto) 6L , Monocytes (%) (Auto) 10, Eosinophils (%) (Auto) 2, Basophils (%) (Auto) 0, Neutrophils # (Auto) 11.6H, Lymphocytes # (Auto) 0.9L, Monocytes # (Auto) 1.4H, Eosinophils # (Auto) 0.2, Basophils # (Auto) 0.0, Neutrophils % (Manual) 85, Lymphocytes % (Manual) 4, Monocytes % (Manual) 8, Eosinophils % (Manual) 2, Basophils % (Manual) 0, Band Neutrophils 1, Polychromasia SLIGHT, Anisocytosis SLIGHT, Macrocytosis SLIGHT, Elliptocytes SLIGHT, Prothrombin Time 13.2, INR Comment 1.0, Activated Partial Thromboplast Time 22L, Sodium Level 135, Potassium Level 4.6, Chloride Level 98, Carbon Dioxide Level 21, Anion Gap 16H, Blood Urea Nitrogen 18, Creatinine 1.35H, Estimat Glomerular Filtration Rate 52 , BUN/Creatinine Ratio 13, Glucose Level 313H, Calcium Level 9.5, Phosphorus Level 1.9L, Magnesium Level 1.6L, Total Bilirubin 0.7, Aspartate Amino Transf ( AST/SGOT) 10, Alanine Aminotransferase (ALT/SGPT) 13, Alkaline Phosphatase 62, Myoglobin 103.6H, Troponin I < 0.30, B-Type Natriuretic Peptide 22.6, Total Protein 7.1, Albumin 4.3 06/13/17 23:58: C-Reactive Protein High Sensitivity 5.00H 06/14/17 01:11: Blood Gas Puncture Site R RAD, Blood Gas Patient Temperature 97.8, Arterial Blood pH 7.41, Arterial Blood Partial Pressure CO2 40, Arterial Blood Partial Pressure O2 116H, Arterial Blood HCO3 25, Arterial Blood Total CO2 26.6, Arterial Blood Oxygen Saturation 99, Arterial Blood Base Excess 1.1, Ahsan Test YES-POS, Blood Gas Ventilator Setting NO, Blood Gas Inspired Oxygen 6L 06/14/17 03:00: Urine Color YELLOW, Urine Clarity CLEAR, Urine pH 5, Urine Specific [place] 1.010L, Urine Protein 2+H, Urine Glucose (UA) 4+H, Urine Ketones 1+H, Urine Nitrite NEGATIVE, Urine Bilirubin NEGATIVE, Urine Urobilinogen NORMAL, Urine Leukocyte Esterase NEGATIVE, Urine RBC (Auto) NEGATIVE, Urine RBC NONE, Urine WBC NONE, Urine Squamous Epithelial Cells RARE, Urine Crystals NONE, Urine Bacteria NEGATIVE, Urine Casts PRESENT, Urine Hyaline Casts RARE, Urine Mucus SMALLH, Urine Culture Indicated NO 06/14/17 06:57: Glucometer 476*H 06/14/17 08:00: White Blood Count 13.5H, Red Blood Count 3.83L, Hemoglobin 10.3L, Hematocrit 32L , Mean Corpuscular Volume 84, Mean Corpuscular Hemoglobin 27, Mean Corpuscular Hemoglobin Concent 32, Red Cell Distribution Width 16.4H, Platelet Count 239, Mean Platelet Volume 10.1, Neutrophils (%) (Auto) 93H, Lymphocytes (%) (Auto) 2L , Monocytes (%) (Auto) 4, Eosinophils (%) (Auto) 0, Basophils (%) (Auto) 0, Neutrophils # (Auto) 12.5H, Lymphocytes # (Auto) 0.3L, Monocytes # (Auto) 0.6, Eosinophils # (Auto) 0.0, Basophils # (Auto) 0.0, Sodium Level 134L, Potassium Level 4.6, Chloride Level 96L, Carbon Dioxide Level 18L, Anion Gap 20H, Blood Urea Nitrogen 23H, Creatinine 1.59H, Estimat Glomerular Filtration Rate 43, BUN/ Creatinine Ratio 14, Glucose Level 543*H, Calcium Level 9.4, Phosphorus Level 4.2, Magnesium Level 1.9, Troponin I 0.75*H, Triglycerides Level 113, Cholesterol Level 121, LDL Cholesterol Direct 66, VLDL Cholesterol 23, HDL Cholesterol 40 Laboratory Tests 06/13/17 23:54 06/14/17 08:00 A/P-Cardiology Assessment/Admission Diagnosis Acute resp failure, associated with hypoxemia at initial presentation Acute exacerbation of COPD and leucocytosis, likely related to lower resp tract infection Elevated troponin likely related to hypoxemia. No ECG changes of ac VA. 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 Hyperlipidemia, treated with atorvastatin and followed by Dr Barakat Surgery on R ear for skin cancer (details unkown) by Dr Swanson in December 2016, followed by Dr Swanson Discussion and Recomendations * Complex management due to presentation multiple comorbidities that are outlined above * Troponin elev appears likely to be due to hypoxia * Continue current cardiac regimen, including antiplatelet therapy * Continue treatment for ac exac of COPD (Med and Pulm Svces) * Monitoring/treatment of anemia is with the Med Svce * iv fluids for ac renal failure * Hold metformin until creatinine below 1.5 * Management of uncontrolled hyperglycemia is with the Med Svce * Monitor labs * I had a detailed discussion with him and his fam and explained our treatment plan Clinical Quality Measures DVT/VTE Risk/Contraindication: Risk Factor Score Per Nursin RFS Level Per Nursing on Admit: 2=Moderate TARI BRYAN MD FACP FAC CCDS Jun 14, 2017 09:57
[2017-06-14] MEDS ORDERED: GLIM2TAB PO (10:10)
[2017-06-14] MEDS ORDERED: GABA600T2 PO (10:10)
[2017-06-14] MEDS ORDERED: AMLO5TAB2 PO (10:10)
[2017-06-14] MEDS ORDERED: CLOP75TA28 PO (10:10)
[2017-06-14] MEDS ORDERED: CLOPIDOGREL 75 MG (PLAVIX) TABLET PO NR (10:21)
[2017-06-14] MEDS ORDERED: ROPI4TAB3 PO (10:23)
[2017-06-14] MEDS ORDERED: IPRA3AMP NEB (10:23)
[2017-06-14] MEDS ORDERED: ACET-2267 PO (10:23)
[2017-06-14] MEDS ORDERED: HYDR-3812 PO (10:23)
[2017-06-14] MEDS ORDERED: TIOT4MIS3 INH (10:38)
[2017-06-14] MEDS: NS IV 1000 ML 1,000 ML IV SCH ×2 (10:53→19:26)
--- NOTE | 2017-06-14 13:41 | Diagnostic Imaging Report ---
PROCEDURE: CT head without contrast. TECHNIQUE: Multiple contiguous axial images were obtained through the brain without the use of intravenous contrast. INDICATION: Confusion. Visual loss. FINDINGS: There is no intracranial hemorrhage. There is periventricular and deep white matter hypodensities suggestive of chronic microvascular ischemic changes. No extra-axial fluid collection is seen. The calvarium, the paranasal sinuses and visualized orbit portions appear grossly unremarkable. IMPRESSION: No intracranial hemorrhage. White matter findings are suggestive of chronic microvascular ischemic changes. Dictated by: Dictated on workstation # [id number]
--- NOTE | 2017-06-14 15:23 | Diagnostic Imaging Report ---
PROCEDURE: US Carotid Duplex Bilateral. TECHNIQUE: Multiple real-time grayscale images were obtained over the carotid arteries in various projections bilaterally. Additional duplex Doppler and color Doppler images were also obtained. INDICATION: Weakness. FINDINGS: There is atherosclerotic plaque seen in the common and internal carotid arteries more prominent on the left side. This includes calcified plaque. The color Doppler demonstrates patency of the common, internal and external carotid arteries bilaterally. Antegrade flow in the vertebral arteries is seen on both sides. Peak systolic velocities in the right ICA are 85, 100, and 102 cm/s from proximal to distal. The peak systolic velocities on the left side are 119, 101, and 92 cm/s. ICA/CCA ratios are up to 1.3 on the right and up to 2.4 on the left. IMPRESSION: 1. The proximal left internal carotid artery velocity is mildly elevated. The ratio however when compared to the common carotid artery is significantly elevated. This is concerning for a potentially significant stenosis. Based on the relatively low absolute velocity, however, correlation with a CTA to better estimate the degree of stenosis is recommended. 2. Atherosclerotic plaque in the right internal carotid artery with estimated underlying stenosis below 50%. Dictated by: Dictated on workstation # [id number]
[2017-06-14] MEDS ORDERED: inSUlin DETERMIR 1 UNIT/0.01 ML (LEVEMIR) CHARGE PER UNIT SQ ONE (16:51)
[2017-06-14] MEDS ORDERED: NORMAL SALINE 250 ML ONE (20:41)
[2017-06-14] MEDS ORDERED: inSUlin (REGULAR) HUMAN 1 UNIT/0.01 ML (CHARGE PER UNIT) IV ONE (20:45)
[2017-06-14] MEDS ORDERED: inSUlin REGULAR TPN/DRIP ONLY 250 UNITS in NORMAL SALINE 250 ML IV SCH (20:45)
[2017-06-14] MEDS ORDERED: inSUlin DETERMIR 1 UNIT/0.01 ML (LEVEMIR) CHARGE PER UNIT SQ SCH (21:00)
[2017-06-14] MEDS ORDERED: NS IV 1000 ML 1,000 ML IV SCH (21:19)
[2017-06-14] MEDS ORDERED: DEXTROSE 50% 50 ML (IMS) SYR IV PRN ×2 (21:30)
[2017-06-15] VITALS (9 sets, daily range): BP systolic 91–154; BP diastolic 52–78
[2017-06-15] MEDS: methylPREDNISolone 125 MG (Solu-MEDROL) VIAL IV SCH ×3 (00:09→20:19)
[2017-06-15 00:51] LABS: ALBUMIN 3.6 GM/DL (3.2-4.5); CALCIUM 8.9 MG/DL (8.5-10.1); CREATININE SERUM 1.22 MG/DL (0.60-1.30); PHOSPHORUS 2.3 MG/DL (2.3-4.7); POTASSIUM 3.7 MMOL/L (3.6-5.0)
[2017-06-15] MEDS: NS IV 1000 ML 1,000 ML IV SCH ×3 (02:03→17:50)
[2017-06-15] MEDS: AZITHROMYCIN 250 MG/NS 250 ML IVPB IV SCH ×2 (02:15)
[2017-06-15] MEDS: RT-ALBUTEROL/IPRATROPIUM 3 ML (DUONEB) VIAL IH SCH ×6 (03:20→21:40)
[2017-06-15] MEDS ORDERED: NORMAL SALINE 0 ML ONE (04:36)
[2017-06-15] MEDS ORDERED: inSUlin (REGULAR) HUMAN 1 UNIT/0.01 ML (CHARGE PER UNIT) ONE ×2 (04:37→04:39)
[2017-06-15 04:51] LABS: BASOPHILS % (AUTO) 0 % (0-10); EOSINOPHILS % (AUTO) 0 % (0-10); LYMPHOCYTES # (AUTO) 0.5 X 10^3 (1.0-4.0); LYMPHOCYTES % (AUTO) 4 % (12-44); MEAN CORPUSCULAR HEMOGLOBIN 27 PG (25-34); MEAN CORPUSCULAR HGB CONC 32 G/DL (32-36); MEAN CORPUSCULAR VOLUME 83 FL (80-99); MEAN PLATELET VOLUME 9.6 FL (7.4-10.4); MONOCYTES # (AUTO) 0.7 X 10^3 (0.0-1.0); MONOCYTES % (AUTO) 6 % (0-12); NEUTROPHILS # (AUTO) 12.3 X 10^3 (1.8-7.8); NEUTROPHILS % (AUTO) 91 % (42-75); PLATELET COUNT 220 10^3/uL (130-400); RED BLOOD COUNT 3.45 10^6/uL (4.35-5.85); RED CELL DISTRIBUTION WIDTH 16.2 % (10.0-14.5); WHITE BLOOD COUNT 13.6 10^3/uL (4.3-11.0)
[2017-06-15 05:06] LABS: ANION GAP 11 MMOL/L (5-14); BLOOD UREA NITROGEN 25 MG/DL (7-18); BUN/CREATININE RATIO 25; CALCIUM 8.8 MG/DL (8.5-10.1); CARBON DIOXIDE 23 MMOL/L (21-32); CHLORIDE 106 MMOL/L (98-107); CREATININE SERUM 1.02 MG/DL (0.60-1.30); GFR ESTIMATED > 60; GLUCOSE 147 MG/DL (70-105); MAGNESIUM 2.1 MG/DL (1.8-2.4); PHOSPHORUS 2.6 MG/DL (2.3-4.7); POTASSIUM 3.9 MMOL/L (3.6-5.0); SODIUM 140 MMOL/L (135-145)
[2017-06-15] MEDS: PANTOPRAZOLE 40 MG (PROTONIX) TAB PO SCH (06:15)
[2017-06-15] MEDS: CLOPIDOGREL 75 MG (PLAVIX) TABLET PO SCH (08:52)
[2017-06-15] MEDS: ENOXAPARIN 40 MG/0.4 ML (LOVENOX) SYR SC SCH (08:53)
[2017-06-15] MEDS: ASPIRIN 81 MG CHEW (CHILDREN'S ASA) PO SCH (08:53)
--- NOTE | 2017-06-15 08:53 | Diagnostic Imaging Report ---
EXAMINATION: Portable upright radiograph of the chest. INDICATION: Dyspnea. COMPARISON: 06/14/2017. FINDINGS: The lungs demonstrate minimal bibasilar atelectasis or scarring. No significant consolidation. The heart size is mildly enlarged. No effusion or pneumothorax. The mediastinum and verónica appear unremarkable. IMPRESSION: Cardiomegaly. Minimal bibasilar atelectasis or scarring. Dictated by: Dictated on workstation # [id number]
--- NOTE | 2017-06-15 11:33 | History & Physicial ---
History of Present Illness History of Present Illness Reason for visit/HPI This is a 76 year old male with a history of COPD and CAD who presented to the emergency department with complaint of worsening shortness of air, weakness to the point that he could not walk, nausea, chills and dry cough. He had been seen in the ER and treated approximately 1 week ago for a COPD exacerbation. On examination in the emergency room, he was hypoxic with acute respiratory distress. He refused intubation. It was felt he was in another acute COPD exacerbation. He was given IV steroids, nebulizer treatments and started on oxygen. He was admitted to the ICU for further evaluation and treatment. Date of Admission Jun 14, 2017 at 02:55 Date Seen by Provider: Jun 14, 2017 Time Seen by Provider: 12:30 I consulted on this patient on 06/15/17 11:25 Attending Physician Lita Barakat DO Admitting Physician Lita Barakat DO Consult Allergies and Home Medications Allergies Coded Allergies: No Known Drug Allergies (Verified , 09/13/09) Home Medications Acetaminophen 500 Mg Tablet, 1,000 MG PO Q6H PRN for PAIN-MILD, (Reported) TAKES 2 (500MG) TABLETS Albuterol Sulfate 18 Gm Hfa.aer.ad, 2 PUFF INH Q6H PRN for SHORTNESS OF BREATH, (Reported) Amlodipine Besylate 5 Mg Tablet, 5 MG PO DAILY, (Reported) Aspirin 81 Mg Tablet.dr, 81 MG PO DAILY, (Reported) Atorvastatin Calcium 40 Mg Tablet, 40 MG PO DAILY, (Reported) Clopidogrel Bisulfate 75 Mg Tablet, 75 MG PO DAILY, (Reported) Gabapentin 600 Mg Tablet, 600 MG PO HS, (Reported) Glimepiride 2 Mg Tablet, 2 MG PO DAILY, (Reported) Hydrocodone/Acetaminophen 1 Each Tablet, 1 TAB PO Q6H PRN for PAIN-MODERATE, ( Reported) Ipratropium/Albuterol Sulfate 3 Ml Ampul.neb, 3 ML NEB QID PRN for SHORTNESS OF BREATH, (Reported) Isosorbide Mononitrate 30 Mg Tab.er.24h, 30 MG PO DAILY, (Reported) Losartan Potassium 100 Mg Tablet, 100 MG PO DAILY, (Reported) Metformin HCl 1,000 Mg Tablet, 1,000 MG PO BID, (Reported) Metoprolol Tartrate 25 Mg Tablet, 25 MG PO DAILY, (Reported) Pantoprazole Sodium 40 Mg Tablet.dr, 40 MG PO DAILY, (Reported) Ropinirole HCl 4 Mg Tablet, 4 MG PO HS, (Reported) Tiotropium Br/Olodaterol HCl 4 Gm Mist.inhal, 2 PUFF INH BID, (Reported) Past [id number]-[id number] Hx Patient Social History Alcohol Use: Occasionally Uses Number of Drinks Today: AA Alcohol Beverage of Choice: Beer Recreational Drug Use: No Smoking Status: Former Smoker Former Smoker, Quit: May 25, 1996 Type Used: Cigarettes 2nd Hand Smoke Exposure: Yes Physical Abuse Screen: No Sexual Abuse: No Recent Foreign Travel: No Contact w/other who traveled: No Recent Hopitalizations: No Recent Infectious Disease Expo: No Immunizations Up To Date Tetanus Booster (TDap): More than 5yrs Date of Pneumonia Vaccine: Jun 24, 2011 Date of Influenza Vaccine: Jun 15, 2016 Seasonal Allergies Seasonal Allergies: No Surgeries Yes (SKIN CANCER REMOVED FROM BACK) Cardiac, Coronary Stent, Eye Surgery, Orthopedic Respiratory Yes Currently Using CPAP: Yes Currently Using BIPAP: No Cardiovascular Yes (STENTS X 5) Coronary Artery Disease, Heart Attack, High Cholesterol, Hypertension Neurological No Reproductive System Hx Reproductive Disorders: No Sexually Transmitted Disease: No HIV/AIDS: No Genitourinary No Gastrointestinal Yes Chronic Diarrhea Musculoskeletal Yes (COLLAR BONE, KNEE SURGERY 10 YEAR AGO, LEFT KNEE) Fractures Endocrine History of Endocrine Disorders: Yes Endocrine Disorders: Diabetes, Insulin dep HEENT HEENT Disorders: Cataract Loss of Vision: Denies Hearing Impairment: Hard of Hearing Cancer Yes Skin Psychosocial History of Psychiatric Problem: No Integumentary History of Skin or Integumenta: Yes (ACTINIC KERATOSIS, SKIN CANCER) Skin/Integumentary Disorders: Psoriasis Blood Transfusions History of Blood Disorders: No Adverse Reaction to a Blood Tr: No Family Medical History Family Hx: Cancer 09 BROTHER Cancer of colon 09 BROTHER Cataract 03 MOTHER Chest pain 03 MOTHER Congenital heart disease 03 FATHER Congestive heart failure 03 FATHER Family history: Cardiovascular disease 03 FATHER 03 MOTHER Family history: Diabetes mellitus 03 FATHER Family history: Gastrointestinal disease 03 MOTHER Family history: Hypertension 03 MOTHER Hearing loss 03 FATHER Heart disease 03 FATHER History of - respiratory disease 03 FATHER Kidney disease 03 FATHER Myocardial infarction 03 FATHER Stroke 03 FATHER No Family History of: Abdominal aortic aneurysm Forrest's disease Alcoholism Aphasia Cystic fibrosis Dementia Dysphagia Family history: Allergy Family history: Alzheimer's disease Family history: Arthritis Family history: Asthma Family history: Breast disease Family history: Coronary thrombosis Family history: Glaucoma Family history: Osteoporosis Family history: Thyroid disorder Headache Hereditary disease History of - anemia History of - disorder History of drug abuse Human immunodeficiency virus (HIV) seropositivity Hypercholesterolemia Infertile Malignant neoplasm of lung Parkinson's disease Prostate cancer Psychotic disorder Seizure disorder Tuberculosis Visual impairment Constitutional: weakness EENTM: No see HPI, No no symptoms reported, No ear discharge, No hearing loss, No ear pain, No blurred vision, No double vision, No eye pain, No tearing, No vision loss, No dental problems, No hoarseness, No mouth pain, No mouth swelling , No epistaxis, No nose congestion, No nose pain, No throat pain, No throat swelling, No other Respiratory: cough, dyspnea on exertion, short of breath, wheezing Cardiovascular: chest pain Gastrointestinal: No RUQ, No LUQ, No RLQ, No LLQ, No no symptoms reported, No see HPI, No abdominal pain, No constipation, No diarrhea, No dysphagia, No hematemesis, No heartburn, No jaundice, No loss of appetite, No melena, No nausea, No vomiting, No other Genitourinary: No no symptoms reported, No see HPI, No decreased output, No discharge, No dysuria, No frequency, No hematuria, No hesitancy, No incontinence , No nocturia, No pain, No other Musculoskeletal: muscle weakness Skin: No no symptoms reported, No see HPI, No change in color, No change in hair/nails, No dryness, No hx of skin cancer, No lesions, No lumps, No pruritus , No rash, No other Psychiatric/Neurological: Weakness Physical Exam Vital Signs Vital Sign - Last 12Hours 06/13/17 06/13/17 23:50 23:59 Temp 97.8 Pulse 132 Resp 26 B/P (MAP) 82/46 Pulse Ox 91 O2 Delivery Nasal Cannula O2 Flow Rate 5.00 Capillary Refill : Less Than 3 Seconds General Appearance: Mild Distress HEENT: Normal ENT Inspection Neck: Supple Respiratory: Decreased Breath Sounds, Rhonci Cardiovascular: Regular Rate, Rhythm, Systolic Murmur, Gallop/S4 Gastrointestinal: Normal Bowel Sounds, Non Tender, Soft Rectal: Deferred Back: No CVA Tenderness Extremity: Non Tender, No Calf Tenderness, No Pedal Edema Neurologic/Psychiatric: Alert, Oriented x3 Skin: Warm/Dry Comments Laboratory Tests 06/13/17 23:54: White Blood Count 14.1H, Red Blood Count 4.10L, Hemoglobin 11.2L, Hematocrit 34L , Mean Corpuscular Volume 83, Mean Corpuscular Hemoglobin 27, Mean Corpuscular Hemoglobin Concent 33, Red Cell Distribution Width 16.3H, Platelet Count 242, Mean Platelet Volume 9.9, Neutrophils (%) (Auto) 82H, Lymphocytes (%) (Auto) 6L , Monocytes (%) (Auto) 10, Eosinophils (%) (Auto) 2, Basophils (%) (Auto) 0, Neutrophils # (Auto) 11.6H, Lymphocytes # (Auto) 0.9L, Monocytes # (Auto) 1.4H, Eosinophils # (Auto) 0.2, Basophils # (Auto) 0.0, Neutrophils % (Manual) 85, Lymphocytes % (Manual) 4, Monocytes % (Manual) 8, Eosinophils % (Manual) 2, Basophils % (Manual) 0, Band Neutrophils 1, Polychromasia SLIGHT, Anisocytosis SLIGHT, Macrocytosis SLIGHT, Elliptocytes SLIGHT, Prothrombin Time 13.2, INR Comment 1.0, Activated Partial Thromboplast Time 22L, Sodium Level 135, Potassium Level 4.6, Chloride Level 98, Carbon Dioxide Level 21, Anion Gap 16H, Blood Urea Nitrogen 18, Creatinine 1.35H, Estimat Glomerular Filtration Rate 52 , BUN/Creatinine Ratio 13, Glucose Level 313H, Calcium Level 9.5, Phosphorus Level 1.9L, Magnesium Level 1.6L, Total Bilirubin 0.7, Aspartate Amino Transf ( AST/SGOT) 10, Alanine Aminotransferase (ALT/SGPT) 13, Alkaline Phosphatase 62, Myoglobin 103.6H, Troponin I < 0.30, B-Type Natriuretic Peptide 22.6, Total Protein 7.1, Albumin 4.3 06/13/17 23:58: C-Reactive Protein High Sensitivity 5.00H 06/14/17 01:11: Blood Gas Puncture Site R RAD, Blood Gas Patient Temperature 97.8, Arterial Blood pH 7.41, Arterial Blood Partial Pressure CO2 40, Arterial Blood Partial Pressure O2 116H, Arterial Blood HCO3 25, Arterial Blood Total CO2 26.6, Arterial Blood Oxygen Saturation 99, Arterial Blood Base Excess 1.1, Ahsan Test YES-POS, Blood Gas Ventilator Setting NO, Blood Gas Inspired Oxygen 6L 06/14/17 03:00: Urine Color YELLOW, Urine Clarity CLEAR, Urine pH 5, Urine Specific [place] 1.010L, Urine Protein 2+H, Urine Glucose (UA) 4+H, Urine Ketones 1+H, Urine Nitrite NEGATIVE, Urine Bilirubin NEGATIVE, Urine Urobilinogen NORMAL, Urine Leukocyte Esterase NEGATIVE, Urine RBC (Auto) NEGATIVE, Urine RBC NONE, Urine WBC NONE, Urine Squamous Epithelial Cells RARE, Urine Crystals NONE, Urine Bacteria NEGATIVE, Urine Casts PRESENT, Urine Hyaline Casts RARE, Urine Mucus SMALLH, Urine Culture Indicated NO 06/14/17 06:57: Glucometer 476*H 06/14/17 08:00: White Blood Count 13.5H, Red Blood Count 3.83L, Hemoglobin 10.3L, Hematocrit 32L , Mean Corpuscular Volume 84, Mean Corpuscular Hemoglobin 27, Mean Corpuscular Hemoglobin Concent 32, Red Cell Distribution Width 16.4H, Platelet Count 239, Mean Platelet Volume 10.1, Neutrophils (%) (Auto) 93H, Lymphocytes (%) (Auto) 2L , Monocytes (%) (Auto) 4, Eosinophils (%) (Auto) 0, Basophils (%) (Auto) 0, Neutrophils # (Auto) 12.5H, Lymphocytes # (Auto) 0.3L, Monocytes # (Auto) 0.6, Eosinophils # (Auto) 0.0, Basophils # (Auto) 0.0, Sodium Level 134L, Potassium Level 4.6, Chloride Level 96L, Carbon Dioxide Level 18L, Anion Gap 20H, Blood Urea Nitrogen 23H, Creatinine 1.59H, Estimat Glomerular Filtration Rate 43, BUN/ Creatinine Ratio 14, Glucose Level 543*H, Calcium Level 9.4, Phosphorus Level 4.2, Magnesium Level 1.9, Troponin I 0.75*H, Triglycerides Level 113, Cholesterol Level 121, LDL Cholesterol Direct 66, VLDL Cholesterol 23, HDL Cholesterol 40 06/14/17 10:57: Glucometer 414*H 06/14/17 14:20: Troponin I 0.76*H 06/14/17 16:45: Glucometer 516*H 06/14/17 19:51: Glucometer 458*H 06/14/17 21:04: Glucometer 399H 06/14/17 22:01: Glucometer 352H 06/14/17 22:48: Glucometer 324H 06/15/17 00:03: Glucometer 283H 06/15/17 00:22: Sodium Level 136, Potassium Level 3.7, Chloride Level 102, Carbon Dioxide Level 22, Anion Gap 12, Blood Urea Nitrogen 25H, Creatinine 1.22, Estimat Glomerular Filtration Rate 58, BUN/Creatinine Ratio 20, Glucose Level 257H, Calcium Level 8.9, Phosphorus Level 2.3, Albumin 3.6 06/15/17 00:57: Glucometer 262H 06/15/17 02:03: Glucometer 219H 06/15/17 03:03: Glucometer 178H 06/15/17 03:57: Glucometer 172H 06/15/17 04:28: White Blood Count 13.6H, Red Blood Count 3.45L, Hemoglobin 9.3L, Hematocrit 29L , Mean Corpuscular Volume 83, Mean Corpuscular Hemoglobin 27, Mean Corpuscular Hemoglobin Concent 32, Red Cell Distribution Width 16.2H, Platelet Count 220, Mean Platelet Volume 9.6, Neutrophils (%) (Auto) 91H, Lymphocytes (%) (Auto) 4L , Monocytes (%) (Auto) 6, Eosinophils (%) (Auto) 0, Basophils (%) (Auto) 0, Neutrophils # (Auto) 12.3H, Lymphocytes # (Auto) 0.5L, Monocytes # (Auto) 0.7, Eosinophils # (Auto) 0.0, Basophils # (Auto) 0.0, Sodium Level 140, Potassium Level 3.9, Chloride Level 106, Carbon Dioxide Level 23, Anion Gap 11, Blood Urea Nitrogen 25H, Creatinine 1.02, Estimat Glomerular Filtration Rate > 60, BUN /Creatinine Ratio 25, Glucose Level 147H, Calcium Level 8.8, Phosphorus Level 2.6, Magnesium Level 2.1 06/15/17 05:07: Glucometer 157H 06/15/17 05:54: Glucometer 142H Assessment/Plan Assessment and Plan 1. Acute Respiratory Distress due to Acute COPD exacerbation--Admit to ICU on IV solumedrol, cover with IV antibiotics, SVNs with duoneb, oxygen 2. Chest Pain with History of CAD--consult cardiology 3. Diabetes mellitus II--insulin requiring--start levemir with SSI 4. Hypertension with current hypotension--low dose metoprolol and hydrate and monitor 5. BHARGAV--resume home CPAP Problems: Clinical Quality Measures DVT/VTE Risk/Contraindication: Risk Factor Score Per Nursin RFS Level Per Nursing on Admit: 2=Moderate LITA BARAKAT DO Jun 15, 2017 11:33
--- NOTE | 2017-06-15 11:44 | Progress Note (SOAP) ---
Subjective Date Seen by Provider: Jun 15, 2017 Time Seen by Provider: 11:15 Subjective/Events-last exam Fwup acute respiratory distress, exacerbation of COPD, hypotension, uncontrolled DM exacerbated by IV steroids, CAD with elevated troponin but no evidence of acute coronary syndrome. Patient awake and alert, sitting up in bed and feels much better. Was placed on insulin drip overnight due to ongoing hyperglycemia. Objective Exam Vital Signs Date Time Temp Pulse Resp B/P (MAP) Pulse Ox O2 Delivery O2 Flow Rate FiO2 06/15/17 09:39 100 Nasal Cannula 6.00 06/15/17 08:00 Nasal Cannula 5.00 06/15/17 07:00 98.5 Nasal Cannula 5.00 06/15/17 07:00 82 06/15/17 06:15 95 Nasal Cannula 6.00 06/15/17 06:00 69 15 132/78 Nasal Cannula 5.00 06/15/17 05:00 68 18 119/62 Nasal Cannula 5.00 06/15/17 04:00 96 Nasal Cannula 5.00 06/15/17 04:00 68 19 91/56 Nasal Cannula 5.00 06/15/17 03:20 96 Nasal Cannula 6.00 06/15/17 03:00 71 29 112/52 Nasal Cannula 5.00 06/15/17 02:00 75 22 114/72 Nasal Cannula 5.00 06/15/17 01:12 69 06/15/17 01:00 67 18 103/62 Nasal Cannula 5.00 06/15/17 00:00 96 Nasal Cannula 5.00 06/15/17 00:00 98.4 06/15/17 00:00 74 19 123/62 Nasal Cannula 5.00 06/14/17 23:00 75 21 Nasal Cannula 5.00 06/14/17 22:22 87 Nasal Cannula 6.00 06/14/17 22:00 75 16 Nasal Cannula 5.00 06/14/17 21:00 81 24 133/72 94 Nasal Cannula 5.00 06/14/17 20:00 85 25 135/74 Nasal Cannula 5.00 06/14/17 20:00 96 Nasal Cannula 5.00 06/14/17 19:55 89 06/14/17 19:30 98.7 Nasal Cannula 5.00 06/14/17 19:11 99 Nasal Cannula 6.00 06/14/17 19:00 79 28 134/67 Nasal Cannula 5.00 06/14/17 18:00 76 18 125/63 100 Nasal Cannula 5.00 06/14/17 17:00 65 25 86/39 100 Nasal Cannula 5.00 06/14/17 16:00 96 Nasal Cannula 5.00 06/14/17 16:00 77 24 97/45 100 Nasal Cannula 5.00 06/14/17 15:00 78 21 119/67 100 Nasal Cannula 5.00 06/14/17 14:00 72 25 119/64 100 Nasal Cannula 5.00 06/14/17 13:00 77 06/14/17 13:00 77 17 93/48 100 Nasal Cannula 5.00 06/14/17 12:00 97.2 Nasal Cannula 5.00 06/14/17 12:00 80 17 95/51 100 Nasal Cannula 5.00 06/14/17 12:00 96 Nasal Cannula 5.00 Capillary Refill : Less Than 3 Seconds General Appearance: No Apparent Distress Neck: Supple Respiratory: Lungs Clear, Decreased Breath Sounds (bases) Cardiovascular: Regular Rate, Rhythm, Systolic Murmur, Gallop/S4 Gastrointestinal: normal bowel sounds, non tender, soft Extremity: Non Tender, No Calf Tenderness, No Pedal Edema Neurologic/Psychiatric: Alert, Oriented x3 Skin: Warm/Dry Lymphatic: No Adenopathy Results Lab Laboratory Tests 06/14/17 14:20: Troponin I 0.76*H 06/14/17 16:45: Glucometer 516*H 06/14/17 19:51: Glucometer 458*H 06/14/17 21:04: Glucometer 399H 06/14/17 22:01: Glucometer 352H 06/14/17 22:48: Glucometer 324H 06/15/17 00:03: Glucometer 283H 06/15/17 00:22: Sodium Level 136, Potassium Level 3.7, Chloride Level 102, Carbon Dioxide Level 22, Anion Gap 12, Blood Urea Nitrogen 25H, Creatinine 1.22, Estimat Glomerular Filtration Rate 58, BUN/Creatinine Ratio 20, Glucose Level 257H, Calcium Level 8.9, Phosphorus Level 2.3, Albumin 3.6 06/15/17 00:57: Glucometer 262H 06/15/17 02:03: Glucometer 219H 06/15/17 03:03: Glucometer 178H 06/15/17 03:57: Glucometer 172H 06/15/17 04:28: White Blood Count 13.6H, Red Blood Count 3.45L, Hemoglobin 9.3L, Hematocrit 29L , Mean Corpuscular Volume 83, Mean Corpuscular Hemoglobin 27, Mean Corpuscular Hemoglobin Concent 32, Red Cell Distribution Width 16.2H, Platelet Count 220, Mean Platelet Volume 9.6, Neutrophils (%) (Auto) 91H, Lymphocytes (%) (Auto) 4L , Monocytes (%) (Auto) 6, Eosinophils (%) (Auto) 0, Basophils (%) (Auto) 0, Neutrophils # (Auto) 12.3H, Lymphocytes # (Auto) 0.5L, Monocytes # (Auto) 0.7, Eosinophils # (Auto) 0.0, Basophils # (Auto) 0.0, Sodium Level 140, Potassium Level 3.9, Chloride Level 106, Carbon Dioxide Level 23, Anion Gap 11, Blood Urea Nitrogen 25H, Creatinine 1.02, Estimat Glomerular Filtration Rate > 60, BUN /Creatinine Ratio 25, Glucose Level 147H, Calcium Level 8.8, Phosphorus Level 2.6, Magnesium Level 2.1 06/15/17 05:07: Glucometer 157H 06/15/17 05:54: Glucometer 142H Microbiology 06/14/17 Blood Culture - Preliminary, Resulted No growth Assessment/Plan Assessment/Plan Assess & Plan/Chief Complaint 1. Acute respiratory Distress due to Acute COPD exacerbation--on oxygen via NC, wean solumedrol, continue nebs with duoneb, continue abx 2. Uncontrolled DM, insulin requiring, exacerbated by IV solumedrol--will wean solumedrol and then can hopefully wean off insulin drip 3. Hypotension--resolved 4. Hypertension--back on low dose metoprolol 5. CAD with elevated troponin--stable with no evidence of acute coronary syndrome 6. Carotid Artery Stenosis--carotid dopplers show increased velocity in left carotid so will obtain CTA of neck to further assess 7. Hopefully to medical floor today if can wean off insulin drip Clinical Quality Measures DVT/VTE Risk/Contraindication: Risk Factor Score Per Nursin RFS Level Per Nursing on Admit: 2=Moderate YVETTE JACKMNA DO Jun 15, 2017 11:44
[2017-06-15] MEDS ORDERED: CATHETER FLUSH 10 ML SYR IV PRN (11:45)
[2017-06-15] MEDS ORDERED: IOHEXOL 350 MG/ML 100 ML (OMNIPAQUE 350) VIAL IV ONE (11:45)
--- NOTE | 2017-06-15 12:30 | Progress Note-Cardiology ---
Cardiology SOAP Progress Note Subjective: He states he feels much better than yesterday Less short of breath No cp or palp or syncope Objective: I&O/Vital Signs Vital Sign - Last 12Hours 06/15/17 06/15/17 06/15/17 06/15/17 01:00 01:12 02:00 03:00 Pulse 67 69 75 71 Resp 18 22 29 B/P (MAP) 103/62 114/72 112/52 O2 Delivery Nasal Cannula Nasal Cannula Nasal Cannula O2 Flow Rate 5.00 5.00 5.00 06/15/17 06/15/17 06/15/17 06/15/17 03:20 04:00 04:00 05:00 Pulse 68 68 Resp 19 18 B/P (MAP) 91/56 119/62 Pulse Ox 96 96 O2 Delivery Nasal Cannula Nasal Cannula Nasal Cannula Nasal Cannula O2 Flow Rate 6.00 5.00 5.00 5.00 06/15/17 06/15/17 06/15/17 06/15/17 06:00 06:15 07:00 07:00 Temp 98.5 Pulse 69 82 Resp 15 B/P (MAP) 132/78 Pulse Ox 95 O2 Delivery Nasal Cannula Nasal Cannula Nasal Cannula O2 Flow Rate 5.00 6.00 5.00 06/15/17 06/15/17 08:00 09:39 Pulse Ox 100 O2 Delivery Nasal Cannula Nasal Cannula O2 Flow Rate 5.00 6.00 Weight (Pounds): 228 Weight (Ounces): 8.0 Weight (Calculated Kilograms): 103.114253 Constitutional: AAO x 3, well-developed, well-nourished, other (moderately short of breath even at rest) Respiratory: No accessory muscle use, other (Generally diminished air entry and increased exp phase) Cardiovascular: regular rate-rhythm, S1 and S2, systolic murmur (faint [place] at card base) Gastrointestional: No tender, soft, No guarding, No rebound, audible bowel sounds Extremities: No clubbing, No cyanosis, No significant edema Neurologic/Psychiatric: oriented x 3, grossly intact, power is 5/5 both on sides Skin: No rash on exposed areas, No ulcerations on exposed areas Results/Procedures: Labs Laboratory Tests 06/14/17 14:20: Troponin I 0.76*H 06/14/17 16:45: Glucometer 516*H 06/14/17 19:51: Glucometer 458*H 06/14/17 21:04: Glucometer 399H 06/14/17 22:01: Glucometer 352H 06/14/17 22:48: Glucometer 324H 06/15/17 00:03: Glucometer 283H 06/15/17 00:22: Sodium Level 136, Potassium Level 3.7, Chloride Level 102, Carbon Dioxide Level 22, Anion Gap 12, Blood Urea Nitrogen 25H, Creatinine 1.22, Estimat Glomerular Filtration Rate 58, BUN/Creatinine Ratio 20, Glucose Level 257H, Calcium Level 8.9, Phosphorus Level 2.3, Albumin 3.6 06/15/17 00:57: Glucometer 262H 06/15/17 02:03: Glucometer 219H 06/15/17 03:03: Glucometer 178H 06/15/17 03:57: Glucometer 172H 06/15/17 04:28: White Blood Count 13.6H, Red Blood Count 3.45L, Hemoglobin 9.3L, Hematocrit 29L , Mean Corpuscular Volume 83, Mean Corpuscular Hemoglobin 27, Mean Corpuscular Hemoglobin Concent 32, Red Cell Distribution Width 16.2H, Platelet Count 220, Mean Platelet Volume 9.6, Neutrophils (%) (Auto) 91H, Lymphocytes (%) (Auto) 4L , Monocytes (%) (Auto) 6, Eosinophils (%) (Auto) 0, Basophils (%) (Auto) 0, Neutrophils # (Auto) 12.3H, Lymphocytes # (Auto) 0.5L, Monocytes # (Auto) 0.7, Eosinophils # (Auto) 0.0, Basophils # (Auto) 0.0, Sodium Level 140, Potassium Level 3.9, Chloride Level 106, Carbon Dioxide Level 23, Anion Gap 11, Blood Urea Nitrogen 25H, Creatinine 1.02, Estimat Glomerular Filtration Rate > 60, BUN /Creatinine Ratio 25, Glucose Level 147H, Calcium Level 8.8, Phosphorus Level 2.6, Magnesium Level 2.1 06/15/17 05:07: Glucometer 157H 06/15/17 05:54: Glucometer 142H 06/15/17 06:53: Glucometer 164H 06/15/17 08:01: Glucometer 195H 06/15/17 09:01: Glucometer 249H 06/15/17 10:26: Glucometer 232H 06/15/17 11:27: Glucometer 196H Microbiology 06/14/17 Blood Culture - Preliminary, Resulted No growth Laboratory Tests 06/13/17 23:54 06/14/17 08:00 06/15/17 00:22 06/15/17 04:28 A/P: Assessment: Acute resp failure, associated with hypoxemia at initial presentation Acute exacerbation of COPD and leucocytosis, likely related to lower resp tract infection Elevated troponin likely related to hypoxemia. No evidence of ACS Echo of 06/14/17: LVEF 55-60%; mild MR, mild to mod TR, PASP 25-30 mmHg, grade I diastolic dysfunction of LV Acute renal failure/insufficiency, probably due to intravascular vol depletion, improved with volume resuscitation DM II, currently with uncontrolled hyperglycemia Marked anemia, diagnosed in November 2016, for which he had blood transfusions in December 2016 Multivessel CAD on cath of 06/02/16; conidered high-risk for CABG and underwent multivessel PCI at [facility] by Dr Lainez: Promus BAKARI to mid LAD, PTCA to distal LAD, Resolute BKAARI to distal LCX, Promus x 2 BAKARI stenting to prox to distal RCA, failed PTCA to OM1 Carotid arterial disease on u/s of 07/28/16: Less than 40% MIGUEL; Approx 60% LICA No evidence of AAA on a screening scan of 07/28/16 Quit smoking in the late 90s. 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 Hyperlipidemia, treated with atorvastatin and followed by Dr Barakat Surgery on R ear for skin cancer (details unkown) by Dr Swanson in December 2016, followed by Dr Swanson Plan: * Continue current cardiac regimen * Continue current cardiac regimen, including antiplatelet therapy * Continue treatment for ac exac of COPD (Med and Pulm Svces) * Monitoring/treatment of anemia is with the Med Svce * iv fluids for ac renal failure * Now that creatinine is below 1.5 it would be reasonable to resume metformin * Management of uncontrolled hyperglycemia is with the Med Svce * Monitor labs * Dr Dunbar covering Card over the weekend TARI BRYAN MD [facility] Jun 15, 2017 12:30
--- NOTE | 2017-06-15 12:52 | Diagnostic Imaging Report ---
TECHNIQUE: The CT angiogram of the neck was performed with intravenous contrast. MIP technique reconstruction images in the sagittal and coronal planes were performed. INDICATION: Elevated velocities in the left internal carotid artery, concerning for stenosis by ultrasound. FINDINGS: The aortic arch is patent. The left common carotid artery is patent. There is prominent calcified plaque seen along the carotid bifurcation on the left. This results in an estimated degree of stenosis of 50-60% in the proximal left internal carotid artery. The rest of the left internal carotid artery is patent. The left external carotid artery is patent. The brachiocephalic artery is patent. The right common carotid artery is patent with distal mild atherosclerotic plaque. There is mild proximal right internal carotid artery plaque seen with no significant stenosis. The external carotid artery on the right side is patent. The proximal aspect of the vertebral arteries on both sides appears to be patent with artifacts seen related to beam hardening from the shoulders obscuring details of these vessels; however, in the proximal neck, there is a variant origin of the left vertebral artery from the proximal aspect of the left subclavian artery near its origin from the aortic arch. The right vertebral artery is dominant. Advanced emphysematous changes are seen in the visualized portions of the upper lungs. Symmetric parotid and submandibular glands are seen. There is suggestion of a nonspecific thyroid nodule measuring 1.2 cm in the right thyroid lobe. No mass or significantly enlarged lymph node is identified in the neck. Prominent degenerative changes in the cervical spine are seen. IMPRESSION: 1. Atherosclerotic plaque is seen at the carotid bifurcation level bilaterally but more prominent on the left side with an estimated underlying stenosis of about 50-60% in the proximal left internal carotid artery. No high-grade stenosis is seen in the right internal carotid artery. 2. Advanced emphysema. Dictated by: Dictated on workstation # [id number]
[2017-06-15] MEDS: inSUlin ASPART (NovoLOG) 1 UNIT/0.01 ML (CHARGE PER UNIT) SC SCH ×2 (17:49→21:11)
[2017-06-15] MEDS: ATORVASTATIN 40 MG (LIPITOR) TABLET PO SCH (20:18)
[2017-06-15] MEDS ORDERED: inSUlin DETERMIR 1 UNIT/0.01 ML (LEVEMIR) CHARGE PER UNIT SQ SCH (21:00)
[2017-06-16] VITALS: BP 168/75
[2017-06-16] MEDS: AZITHROMYCIN 250 MG/NS 250 ML IVPB IV SCH ×2 (01:54)
[2017-06-16] MEDS: RT-ALBUTEROL/IPRATROPIUM 3 ML (DUONEB) VIAL IH SCH ×3 (02:17→10:26)
[2017-06-16] MEDS: NS IV 1000 ML 1,000 ML IV SCH (03:50)
[2017-06-16 04:00] VITALS: BP_SYST 129; BP_SYST 154; BP_DIAS 67; BP_DIAS 77
[2017-06-16] MEDS: inSUlin ASPART (NovoLOG) 1 UNIT/0.01 ML (CHARGE PER UNIT) SC SCH ×2 (06:21→11:00)
[2017-06-16] MEDS: PANTOPRAZOLE 40 MG (PROTONIX) TAB PO SCH (06:21)
[2017-06-16 06:27] LABS: BASOPHILS % (AUTO) 0 % (0-10); EOSINOPHILS % (AUTO) 0 % (0-10); LYMPHOCYTES # (AUTO) 0.3 X 10^3 (1.0-4.0); LYMPHOCYTES % (AUTO) 2 % (12-44); MEAN CORPUSCULAR HEMOGLOBIN 27 PG (25-34); MEAN CORPUSCULAR HGB CONC 33 G/DL (32-36); MEAN CORPUSCULAR VOLUME 85 FL (80-99); MEAN PLATELET VOLUME 10.1 FL (7.4-10.4); MONOCYTES # (AUTO) 0.9 X 10^3 (0.0-1.0); MONOCYTES % (AUTO) 8 % (0-12); NEUTROPHILS # (AUTO) 9.8 X 10^3 (1.8-7.8); NEUTROPHILS % (AUTO) 89 % (42-75); PLATELET COUNT 217 10^3/uL (130-400); RED BLOOD COUNT 3.28 10^6/uL (4.35-5.85); RED CELL DISTRIBUTION WIDTH 16.9 % (10.0-14.5)
[2017-06-16 06:47] LABS: ANION GAP 8 MMOL/L (5-14); BLOOD UREA NITROGEN 22 MG/DL (7-18); BUN/CREATININE RATIO 24; CALCIUM 8.2 MG/DL (8.5-10.1); CARBON DIOXIDE 23 MMOL/L (21-32); CHLORIDE 105 MMOL/L (98-107); CREATININE SERUM 0.92 MG/DL (0.60-1.30); GFR ESTIMATED > 60; GLUCOSE 218 MG/DL (70-105); MAGNESIUM 2.1 MG/DL (1.8-2.4); PHOSPHORUS 2.8 MG/DL (2.3-4.7); POTASSIUM 4.9 MMOL/L (3.6-5.0); SODIUM 136 MMOL/L (135-145)
[2017-06-16 08:00] VITALS: BP 131/62
[2017-06-16] MEDS: ENOXAPARIN 40 MG/0.4 ML (LOVENOX) SYR SC SCH (08:42)
[2017-06-16] MEDS: methylPREDNISolone 125 MG (Solu-MEDROL) VIAL IV SCH (08:43)
[2017-06-16] MEDS: ASPIRIN 81 MG CHEW (CHILDREN'S ASA) PO SCH (08:43)
[2017-06-16] MEDS: CLOPIDOGREL 75 MG (PLAVIX) TABLET PO SCH (08:43)
[2017-06-16] MEDS ORDERED: RT-ALBUTEROL HFA (VENTOLIN) PER PUFF IH PRN (10:45)
[2017-06-16] MEDS ORDERED: ACETAMINOPHEN 500 MG TAB (TYLENOL) PO PRN (10:45)
[2017-06-16] MEDS ORDERED: RX-HYDROCODONE/APAP 5/325 MG #4 TAB PK PO PRN (10:45)
[2017-06-16] MEDS ORDERED: RT-ALBUTEROL/IPRATROPIUM 3 ML (DUONEB) VIAL IH PRN (10:45)
--- NOTE | 2017-06-16 11:01 | Discharge Summary-Hospitalist ---
Diagnosis/Chief Complaint Date of Admission Jun 14, 2017 at 02:55 Date of Discharge Discharge Date: Jun 16, 2017 Discharge Diagnosis Assess & Plan/Chief Complaint 1. Acute respiratory Distress due to Acute COPD exacerbation--on oxygen via NC, wean solumedrol, continue nebs with duoneb, continue abx 2. Uncontrolled DM, insulin requiring, exacerbated by IV solumedrol--will wean solumedrol and then can hopefully wean off insulin drip 3. Hypotension--resolved 4. Hypertension--back on low dose metoprolol 5. CAD with elevated troponin--stable with no evidence of acute coronary syndrome 6. Carotid Artery Stenosis--carotid dopplers show increased velocity in left carotid so will obtain CTA of neck to further assess 7. Hopefully to medical floor today if can wean off insulin drip (1) COPD exacerbation Status: Acute (2) Hypoxia Onset Date: 09/04/2014 Status: Chronic (3) IDDM (insulin dependent diabetes mellitus) Status: Chronic (4) HTN (hypertension) Status: Chronic (5) Respiratory insufficiency Status: Acute (6) Hyperglycemia, drug-induced Status: Acute Discharge Summary Discharge Physical Examination Allergies: Coded Allergies: No Known Drug Allergies (Verified , 09/13/09) Vitals & I&Os Vital Signs Date Time Temp Pulse Resp B/P (MAP) Pulse Ox O2 Delivery O2 Flow Rate FiO2 06/16/17 10:28 96 Room Air 06/16/17 08:00 5.00 06/16/17 08:00 97.9 69 20 131/62 Hospital Course Hospital course: Patient had a brief hospital course considering the severity of his COPD oxygen dependency. He was admitted for acute respiratory insufficiency placed on IV Solu-Medrol that caused significant hyperglycemia requiring insulin drip with good resolution. He was transferred out of the ICU converted to subcutaneous insulin and maintain on Zithromax for empiric treatment of bronchitis acute on chronic type. He maintain oxygen as he has at home along with nebulizer treatments which improved status. Carotid ultrasound was obtained assessed slight abnormalities or CT angiogram of the neck was obtained and that was assessed to be around 50 percent stenosis but nothing critical. Metformin was held due to diuretic administration and overall he felt much better and was wanting to go home as planned per primary care provider within she saw the patient yesterday. His will be able to monitor him closely and he was told if anything worsens he is to return back to the hospital. He will be going home on long prednisone taper along with NovoLog 10 units before meals due to hyperglycemia from prednisone administration in addition he needed a refill on his gabapentin at 600 mg at night along with continuing the Zithromax therapy for 3 more days of 250 mg. Labs (last 24 hrs) Laboratory Tests 06/15/17 11:27: Glucometer 196H 06/15/17 12:37: Glucometer 189H 06/15/17 13:46: Glucometer 135H 06/15/17 14:20: Glucometer 103 06/15/17 14:51: Glucometer 111H 06/15/17 17:42: Glucometer 336H 06/15/17 20:50: Glucometer 225H 06/16/17 05:23: Sodium Level 136, Potassium Level 4.9, Chloride Level 105, Carbon Dioxide Level 23, Anion Gap 8, Blood Urea Nitrogen 22H, Creatinine 0.92, Estimat Glomerular Filtration Rate > 60, BUN/Creatinine Ratio 24, Glucose Level 218H, Calcium Level 8.2L, Phosphorus Level 2.8, Magnesium Level 2.1 06/16/17 05:33: White Blood Count 11.0, Red Blood Count 3.28L, Hemoglobin 9.0L, Hematocrit 28L, Mean Corpuscular Volume 85, Mean Corpuscular Hemoglobin 27, Mean Corpuscular Hemoglobin Concent 33, Red Cell Distribution Width 16.9H, Platelet Count 217, Mean Platelet Volume 10.1, Neutrophils (%) (Auto) 89H, Lymphocytes (%) (Auto) 2L , Monocytes (%) (Auto) 8, Eosinophils (%) (Auto) 0, Basophils (%) (Auto) 0, Neutrophils # (Auto) 9.8H, Lymphocytes # (Auto) 0.3L, Monocytes # (Auto) 0.9, Eosinophils # (Auto) 0.0, Basophils # (Auto) 0.0 06/16/17 05:35: Glucometer 225H Microbiology 06/14/17 Blood Culture - Preliminary, Resulted No growth Pending Labs Laboratory Tests 06/16/17 05:23: Sodium Level 136, Potassium Level 4.9, Chloride Level 105, Carbon Dioxide Level 23, Anion Gap 8, Blood Urea Nitrogen 22, Creatinine 0.92, Estimat Glomerular Filtration Rate > 60, BUN/Creatinine Ratio 24, Glucose Level 218, Calcium Level 8.2, Phosphorus Level 2.8, Magnesium Level 2.1 06/16/17 05:33: White Blood Count 11.0, Red Blood Count 3.28, Hemoglobin 9.0, Hematocrit 28, Mean Corpuscular Volume 85, Mean Corpuscular Hemoglobin 27, Mean Corpuscular Hemoglobin Concent 33, Red Cell Distribution Width 16.9, Platelet Count 217, Mean Platelet Volume 10.1, Neutrophils (%) (Auto) 89, Lymphocytes (%) (Auto) 2, Monocytes (%) (Auto) 8, Eosinophils (%) (Auto) 0, Basophils (%) (Auto) 0, Neutrophils # (Auto) 9.8, Lymphocytes # (Auto) 0.3, Monocytes # (Auto) 0.9, Eosinophils # (Auto) 0.0, Basophils # (Auto) 0.0 06/16/17 05:35: Glucometer 225 Discharge Home Medications: Active Scripts Active Novolog (Insulin Aspart) 100 Unit/1 Ml Susp 10 Unit SQ AC Prednisone 10 Mg Tab.ds.pk 10 Mg PO DAILY Take 6 tabs(60mg)daily,decrease by 1 tab(10mg)every other day. Azithromycin 250 Mg Tablet 250 Mg PO DAILY 3 Days Gabapentin 600 Mg Tablet 600 Mg PO HS Reported Stiolto Respimat Inhal [place] (Tiotropium Br/Olodaterol HCl) 4 Gm Mist.inhal 2 Puff INH BID Tylenol Extra Strength (Acetaminophen) 500 Mg Tablet 1,000 Mg PO Q6H PRN TAKES 2 (500MG) TABLETS Iprat-Albut 0.5-3(2.5) mg/3 ml (Ipratropium/Albuterol Sulfate) 3 Ml Ampul.neb 3 Ml NEB QID PRN Hydrocodon -Acetaminophen 5-325 (Hydrocodone/Acetaminophen) 1 Each Tablet 1 Tab PO Q6H PRN Ropinirole HCl 4 Mg Tablet 4 Mg PO HS Glimepiride 2 Mg Tablet 2 Mg PO DAILY Amlodipine Besylate 5 Mg Tablet 5 Mg PO DAILY Clopidogrel (Clopidogrel Bisulfate) 75 Mg Tablet 75 Mg PO DAILY Lipitor (Atorvastatin Calcium) 40 Mg Tablet 40 Mg PO DAILY Isosorbide Mononitrate ER (Isosorbide Mononitrate) 30 Mg Tab.er.24h 30 Mg PO DAILY Protonix (Pantoprazole Sodium) 40 Mg Tablet.dr 40 Mg PO DAILY Metoprolol Tartrate 25 Mg Tablet 25 Mg PO DAILY Losartan Potassium 100 Mg Tablet 100 Mg PO DAILY Aspir 81 (Aspirin) 81 Mg Tablet.dr 81 Mg PO DAILY Ventolin Hfa (Albuterol Sulfate) 18 Gm Hfa.aer.ad 2 Puff INH Q6H PRN Metformin HCl 1,000 Mg Tablet 1,000 Mg PO BID Instructions to patient/family Please see electronic discharge instructions given to patient. Clinical Quality Measures DVT/VTE Risk/Contraindication: Risk Factor Score Per Nursin RFS Level Per Nursing on Admit: 2=Moderate Problem Qualifiers (1) HTN (hypertension): Hypertension type: essential hypertension Qualified Codes: I10 - Essential ( primary) hypertension ENRIQUE DUNN DO Jun 16, 2017 11:01
[2017-06-16] MEDS ORDERED: GABA600T2 PO (11:06)
[2017-06-16] MEDS ORDERED: AZIT250T12 PO (11:06)
[2017-06-16] MEDS ORDERED: PRED10TA22 PO (11:06)
[2017-06-16] MEDS ORDERED: INSU100V16 SQ (11:06)
[2017-06-16 11:56] VITALS: BP 147/67
--- NOTE | 2017-06-16 12:05 | Diagnostic Imaging Report ---
INDICATION: Shortness of breath. COMPARISON: 06/15/2017. Single view of the chest demonstrates cardiac enlargement without pulmonary edema. There is no pneumothorax or effusion. Senescent changes are seen throughout the interstitium. IMPRESSION: 1. Cardiac enlargement without acute pulmonary edema or vascular congestion. 2. Senescent changes throughout the interstitium. Dictated by: Dictated on workstation # [id number]
[2017-06-16] MEDS ORDERED: GABAPENTIN 600 MG (NEURONTIN) TAB PO SCH (21:00)
[2017-06-16] MEDS ORDERED: rOPINIRole 1 MG (REQUIP) TABLET PO SCH (21:00)
[2017-06-16] MEDS ORDERED: NON-FORMULARY MEDICATION 1 EA EA (Ropinirole HCl 4 MG) PO SCH (21:00)
[2017-06-16] MEDS ORDERED: NON-FORMULARY MEDICATION 1 EA EA (Tiotropium Br/Olodaterol HCl (Stiolto Respimat Inhal Spr INH SCH (21:00)
[2017-06-16] MEDS ORDERED: NON-FORMULARY MEDICATION 1 EA EA (Metformin HCl 1,000 MG) PO SCH (21:00)
[2017-06-17] MEDS ORDERED: ASPIRIN E.C. 81 MG (ECOTRIN) TAB PO SCH (09:00)
[2017-06-17] MEDS ORDERED: GLIMEPIRIDE 2 MG (AMARYL) TAB PO SCH (09:00)
[2017-06-17] MEDS ORDERED: meTOprolol TARTRATE 25 MG (LOPRESSOR) TABLET PO SCH (09:00)
[2017-06-17] MEDS ORDERED: ATORVASTATIN 40 MG (LIPITOR) TABLET PO SCH (09:00)
[2017-06-17] MEDS ORDERED: CLOPIDOGREL 75 MG (PLAVIX) TABLET PO SCH (09:00)
[2017-06-17] MEDS ORDERED: PANTOPRAZOLE 40 MG (PROTONIX) TAB PO SCH (09:00)
[2017-06-17] MEDS ORDERED: NON-FORMULARY MEDICATION 1 EA EA (Losartan Potassium 100 MG) PO SCH (09:00)
[2017-06-17] MEDS ORDERED: amLODIPine 5 MG (NORVASC) TAB PO SCH (09:00)
[2017-06-17] MEDS ORDERED: ISOSORBIDE MONONITRATE 30 MG (IMDUR) TAB PO SCH (09:00)
[2017-06-17] MEDS ORDERED: PRD10T (23:42)
[2017-06-18] MEDS ORDERED: ROPI4TAB3 PO (13:23)
[2017-06-18] MEDS ORDERED: FERR-84 PO (13:24)
[2017-06-18] MEDS ORDERED: CYCL10TA9 PO (13:25)
[2017-06-18] MEDS ORDERED: AZIT250T12 PO (13:27)
[2017-06-18] MEDS ORDERED: ACLI400A2 IH (13:29)
[2017-06-18] MEDS ORDERED: PRD10T PO (13:43)
--- NOTE | 2017-06-18 21:24 | Physician Query Clarification ---
PQ-Conflicting Diagnosis Admission/Discharge Admission Date: Jun 14, 2017 at 02:55 Discharge Date: Jun 16, 2017 at 12:50 The medical record reflects the following clinical scenario: ED states COPD exacerbation, Dr Irby H&P states acute respiratory "distress " due to acute COPD exacerbation as does summary. Dr Stephens's consult and progress note state Acute respiratory "failure" with hypoxemia at initial presentation. Please clarify which is correct, respiratory distress or respiratory failure? Question: Do you agree with the impression of the Acute respiratory failure with hypoxemia per Dr. Stephens.? Please document a response below. PHYSICIAN RESPONSE Do you agree w/Consulting Dx?: Yes In responding to this query, please exercise your independent professional judgment. The purpose of this communication is to more accurately reflect the complexity of your patients condition. The fact that a question is asked does not imply that any particular answer is desired or expected. Thank you for your timely response to this clarification. Requestors name: [ ] Phone # [ ] THIS PHYSICIAN QUERY FORM IS A PERMANENT PART OF THE MEDICAL RECORD LONI ROSADO Jun 18, 2017 21:24 ENRIQUE DUNN DO Jun 19, 2017 08:30
[2017-06-21] MEDS ORDERED: AMOX1TAB12 PO (12:30)
== END 2017-06-16 12:50 | disposition home or self-care (01) | DRG 189 ==
LOC: EDUNIT# 23:37 → ER 23:39 → ICU 06-14 02:55 → 4TH 06-15 18:05
PROVIDERS: ADMIT Family Medicine; ATTEND Family Medicine
DX: J96.01 Acute respiratory failure with hypoxia (principal); J44.1 Chronic obstructive pulmonary disease with (acute) exacerbation; Z87.891 Personal history of nicotine dependence; N17.9 Acute kidney failure, unspecified; I25.10 Atherosclerotic heart disease of native coronary artery without angina pectoris; Z95.5 Presence of coronary angioplasty implant and graft; I25.2 Old myocardial infarction; E78.5 Hyperlipidemia, unspecified; I10 Essential (primary) hypertension; E11.65 Type 2 diabetes mellitus with hyperglycemia; G47.33 Obstructive sleep apnea (adult) (pediatric); Z79.4 Long term (current) use of insulin; I95.9 Hypotension, unspecified; I65.23 Occlusion and stenosis of bilateral carotid arteries; D64.9 Anemia, unspecified; Z85.828 Personal history of other malignant neoplasm of skin
CPT/HCPCS: 36415; 70450; 70498; 71010; 80048; 80053; 80061; 80069; 81000; 82805; 82962; 83735; 83874; 83880; 84100; 84484; 85007; 85025; 85027; 85610; 85730; 86141; 87040; 93005; 93041; 93306; 93880; 94640; 94760; 96365; 96375

== ENCOUNTER → 2017-07-02 | Outpatient (CLI) | payer MEDICARE ==
[~2017-07-02] MED LIST changes: +ACET-2267 PO; +ACLI400A2 IH; +AMLO5TAB2 PO; +AMOX1TAB12 PO; +AZIT250T5 PO; +CLOP75TA28 PO; +CYCL10TA9 PO; +FERR-84 PO; +GABA600T2 PO; +GLIM2TAB PO; +HYDR-3812 PO; +INSU100V16 SQ; +IPRA3AMP NEB; +PRD10T; +PRD10T PO; +PRED10TA22 PO; +ROPI4TAB3 PO; +TIOT4MIS3 INH
--- NOTE | 2017-07-02 14:08 | Diagnostic Imaging Report ---
PA and lateral views of the chest. INDICATION: Shortness of breath. COMPARISON: 06/19/2017. FINDINGS: There is interval improvement of bibasilar patchy infiltrates with minimal remaining bibasilar interstitial thickening likely chronic. The heart size is normal. There is no effusion or pneumothorax. The mediastinum and verónica appear unremarkable. IMPRESSION: Resolved bibasilar infiltrates with background chronic-appearing interstitial thickening seen. Dictated by: Dictated on workstation # [id number]
== END ==
LOC: RAD 10:36
PROVIDERS: ATTEND Family Medicine
DX: J84.9 Interstitial pulmonary disease, unspecified (principal)
CPT/HCPCS: 71020

== ENCOUNTER 2017-10-15 14:15 | Emergency (ER) | payer MEDICARE ==
[~2017-10-15] VITALS: Ht 182.9 cm; Wt 103.2 kg
[~2017-10-15 14:15] MED LIST changes: +ACHD5005 PO; +AZIT250T12 PO; -AZIT250T5 PO; -HYDR-3812 PO
[2017-10-15] MEDS ORDERED: NS IV 1000 ML 1,000 ML IV SCH (14:30)
--- NOTE | 2017-10-15 14:34 | ED Upper Extremity ---
General Chief Complaint: Laceration Stated Complaint: RT RING FINGER CUT WITH TABLE SAW Source: patient, family Exam Limitations: no limitations History of Present Illness Date Seen by Provider: Oct 15, 2017 Time Seen by Provider: 14:29 Initial Comments This 77 white male presents of stain injury to his dominant right ring finger on a table saw shortly prior to presentation return to department. The patient denies loss of sensation but has noted an inability to extend his affected digit. Patient denies other injury and his accident. He denies previous injury to his right ring finger. Allergies and Home Medications Allergies Coded Allergies: No Known Drug Allergies (Verified , 09/13/09) Home Medications Acetaminophen 500 Mg Tablet, 1,000 MG PO Q6H PRN for PAIN-MILD, (Reported) TAKES 2 (500MG) TABLETS Albuterol Sulfate 18 Gm Hfa.aer.ad, 2 PUFF INH Q6H PRN for SHORTNESS OF BREATH, (Reported) Amlodipine Besylate 5 Mg Tablet, 5 MG PO DAILY, (Reported) Amoxicillin/Potassium Clav 1 Each Tablet, 875 MG PO BID WITH MEALS, #15 Prescribed by: YVETTE JACKMAN on 06/21/17 1230 Aspirin 81 Mg Tablet.dr, 81 MG PO DAILY, (Reported) Atorvastatin Calcium 40 Mg Tablet, 40 MG PO DAILY, (Reported) Clopidogrel Bisulfate 75 Mg Tablet, 75 MG PO DAILY, (Reported) Ferrous Sulfate 325 Mg Tablet, 325 MG PO HS, (Reported) Gabapentin 600 Mg Tablet, 600 MG PO HS, #30 Prescribed by: ENRIQUE DUNN on 06/16/17 1106 Insulin Aspart 100 Unit/1 Ml Susp, 10 UNIT SQ AC, #1 Prescribed by: ENRIQUE DUNN on 06/16/17 1106 Ipratropium/Albuterol Sulfate 3 Ml Ampul.neb, 3 ML NEB QID PRN for SHORTNESS OF BREATH, (Reported) Isosorbide Mononitrate 30 Mg Tab.er.24h, 30 MG PO DAILY, (Reported) Losartan Potassium 100 Mg Tablet, 100 MG PO DAILY, (Reported) Metformin HCl 1,000 Mg Tablet, 1,000 MG PO BID, (Reported) Metoprolol Tartrate 25 Mg Tablet, 25 MG PO DAILY, (Reported) Prednisone 10 Mg Tab, 60 MG PO DAILY, (Reported) 60MG FOR 2 DAYS PICKED UP 06/16/17 50MG FOR 2 DAYS 40MG FOR 2 DAYS 30MG FOR 2 DAYS 20MG FOR 2 DAYS 10MGS FOR 2 DAYS Constitutional: No chills, No fever EENTM: No ear pain Respiratory: No cough Cardiovascular: No chest pain Gastrointestinal: No diarrhea, No vomiting Genitourinary: no symptoms reported Musculoskeletal: see HPI, other (there is a laceration of the dorsum of the right ring finger extending from the PIP joint distally. They affected digit demonstrates flexion at the DIP joint and a inability to extend.) Skin: see HPI Psychiatric/Neurological: No Symptoms Reported Past Flsrnnv-Btnnix-Sysbga Hx Patient Social History Alcohol Beverage of Choice: Beer Type Used: Cigarettes Former Smoker, Quit: May 25, 1996 2nd Hand Smoke Exposure: Yes Recent Foreign Travel: No Contact w/Someone Who Travel: No Recent Hopitalizations: Yes (DC'D06/16/17) Immunizations Up To Date Tetanus Booster (TDap): More than 5yrs Date of Pneumonia Vaccine: Jun 24, 2011 Date of Influenza Vaccine: Jun 15, 2016 Seasonal Allergies Seasonal Allergies: No Surgeries History of Surgeries: Yes (SKIN CANCER REMOVED FROM BACK) Surgeries: Cardiac, Coronary Stent, Eye Surgery, Orthopedic Respiratory History of Respiratory Disorde: Yes Respiratory Disorders: Pneumonia, Sleep Apnea, COPD, Emphysema Currently Using CPAP: Yes Currently Using BIPAP: No Cardiovascular History of Cardiac Disorders: Yes (STENTS X 5) Cardiac Disorders: Coronary Artery Disease, Heart Attack, High Cholesterol, Hypertension Neurological History of Neurological Disord: No Reproductive System Hx Reproductive Disorders: No Sexually Transmitted Disease: No HIV/AIDS: No Genitourinary History of Genitourinary Disor: No Gastrointestinal History of Gastrointestinal Di: Yes Gastrointestinal Disorders: Chronic Diarrhea Musculoskeletal History of Musculoskeletal Dis: Yes (COLLAR BONE, KNEE SURGERY 10 YEAR AGO, LEFT KNEE) Musculoskeletal Disorders: Fractures Endocrine History of Endocrine Disorders: Yes Endocrine Disorders: Diabetes, Insulin dep HEENT HEENT Disorders: Cataract Loss of Vision: Denies Hearing Impairment: Hard of Hearing Cancer History of Cancer: Yes Cancer: Skin Psychosocial History of Psychiatric Problem: No Integumentary History of Skin or Integumenta: Yes (ACTINIC KERATOSIS, SKIN CANCER) Skin/Integumentary Disorders: Psoriasis Blood Transfusions History of Blood Disorders: No Adverse Reaction to a Blood Tr: No Reviewed Nursing Assessment Reviewed/Agree w Nursing PMH: Yes Family Medical History Family Medial History: Cancer 09 BROTHER Cancer of colon 09 BROTHER Cataract 03 MOTHER Chest pain 03 MOTHER Congenital heart disease 03 FATHER Congestive heart failure 03 FATHER Family history: Cardiovascular disease 03 FATHER 03 MOTHER Family history: Diabetes mellitus 03 FATHER Family history: Gastrointestinal disease 03 MOTHER Family history: Hypertension 03 MOTHER Hearing loss 03 FATHER Heart disease 03 FATHER History of - respiratory disease 03 FATHER Kidney disease 03 FATHER Myocardial infarction 03 FATHER Stroke 03 FATHER No Family History of: Abdominal aortic aneurysm [place]'s disease Alcoholism Aphasia Cystic fibrosis Dementia Dysphagia Family history: Allergy Family history: Alzheimer's disease Family history: Arthritis Family history: Asthma Family history: Breast disease Family history: Coronary thrombosis Family history: Glaucoma Family history: Osteoporosis Family history: Thyroid disorder Headache Hereditary disease History of - anemia History of - disorder History of drug abuse Human immunodeficiency virus (HIV) seropositivity Hypercholesterolemia Infertile Malignant neoplasm of lung Parkinson's disease Prostate cancer Psychotic disorder Seizure disorder Tuberculosis Visual impairment Physical Exam Vital Signs Vital Sign - Last 12Hours 10/15/17 14:29 Temp 98.0 Pulse 97 Resp 20 B/P (MAP) 143/84 (103) Pulse Ox 97 O2 Delivery Room Air Capillary Refill : General Appearance: WD/WN, no apparent distress HEENT: normal ENT inspection Neck: normal inspection Respiratory: no respiratory distress Gastrointestinal: normal bowel sounds Shoulder: normal inspection Elbow/Forearm: normal inspection Wrist: Yes normal inspection Hand: Right (examination of the right hand demonstrates a loss of the skin and extensor tendons to the right ring finger from the PIP distally. There is a normal neurologic and vascular exam to the affected digit.) Neurologic/Tendon: normal sensation, tendon injury visualized (there appears to be loss of the extensor tendon digit from the PIP joint distally to the right ring finger.) Neurologic/Psychiatric: alert, normal mood/affect, oriented x 3 Skin: normal color, warm/dry Progress/Results/Core Measures Results/Orders Lab Results Laboratory Tests Test 10/15/17 14:40 Range/Units White Blood Count 6.3 4.3-11.0 10^3/uL Red Blood Count 4.13 L 4.35-5.85 10^6/uL Hemoglobin 12.0 L 13.3-17.7 G/DL Hematocrit 36 L 40-54 % Mean Corpuscular Volume 87 80-99 FL Mean Corpuscular Hemoglobin 29 25-34 PG Mean Corpuscular Hemoglobin Concent 33 32-36 G/DL Red Cell Distribution Width 14.0 10.0-14.5 % Platelet Count 202 130-400 10^3/uL Mean Platelet Volume 9.6 7.4-10.4 FL Neutrophils (%) (Auto) 70 42-75 % Lymphocytes (%) (Auto) 16 12-44 % Monocytes (%) (Auto) 11 0-12 % Eosinophils (%) (Auto) 3 0-10 % Basophils (%) (Auto) 1 0-10 % Neutrophils # (Auto) 4.4 1.8-7.8 X 10^3 Lymphocytes # (Auto) 1.0 1.0-4.0 X 10^3 Monocytes # (Auto) 0.7 0.0-1.0 X 10^3 Eosinophils # (Auto) 0.2 0.0-0.3 10^3/uL Basophils # (Auto) 0.0 0.0-0.1 10^3/uL My Orders Orders - KOBY SANTANA MD Hand, Right, 3 Views (10/15/17 14:20) Chest 1 View, Ap/Pa Only (10/15/17 14:20) Ekg Tracing (10/15/17 14:20) Cbc With Automated Diff (10/15/17 14:20) Comprehensive Metabolic Panel (10/15/17 14:20) Ns Iv 1000 Ml (Sodium Chloride 0.9%) (10/15/17 14:30) Ceftriaxone Injection (Rocephin Injectio (10/15/17 14:45) Fentanyl Injection (Sublimaze Injection (10/15/17 15:00) Medications Given in ED Current Medications Medications Dose Ordered Sig/Regino Route Start Time Stop Time Status Last Admin Dose Admin Ceftriaxone Sodium 1000 mg/ Dextrose/Water 50 ml @ 100 mls/hr ONCE ONCE IV 10/15/17 14:45 10/15/17 15:14 10/15/17 14:57 100 MLS/HR Vital Signs/I&O Vital Sign - Last 12Hours 10/15/17 14:29 Temp 98.0 Pulse 97 Resp 20 B/P (MAP) 143/84 (103) Pulse Ox 97 O2 Delivery Room Air Progress Note : Time: 14:34 Progress Note A call was placed to Dr. Burnett, orthopedics. X-ray of the patient's right hand was obtained. Patient received a gram of Rocephin IV. Patient was given 50 g of fentanyl IV for pain. The patient's preop labs were done. After telephone consultation with Dr. Burnett arrangements were made for him to be closely followed up in the morning with Dr. Burnett at 8:15 a.m. in his office in [place]. The patient's laceration was cleaned and dressed and splinted with the DIP joint in extension. Departure Impression Impression: Primary Impression: Laceration of hand with tendon involvement Qualified Codes: S61.411A - Laceration without foreign body of right hand, initial encounter; S66.921A - Laceration of unspecified muscle, fascia and tendon at wrist and hand level, right hand, initial encounter Disposition: HOME, SELF-CARE Condition: Improved Departure-Patient Inst. Decision time for Depature: 14:52 Referrals: EMPERATRIZ BURNETT JACQUELINE S DO (PCP/Family) Primary Care Physician Patient Instructions: Tendon Laceration (DC) Add. Discharge Instructions: The finger was dressed and splinted. Follow-up with Dr. Burnett at 8:15 in the morning at his office. Vicodin for pain. Keflex for antibiotic coverage. Return of any problems or questions. In the event that's preoperative lab as needed ask the personnel to call us here and we will share his labs. All discharge instructions reviewed with patient and/or family. Voiced understanding. KOBY SANTANA MD Oct 15, 2017 14:34
[2017-10-15] MEDS ORDERED: cefTRIAXone INJECTION 1,000 MG in D5W 50 ML IVPB SOLUTION 50 ML IV ONE (14:45)
[2017-10-15 14:52] LABS: BASOPHILS % (AUTO) 1 % (0-10); EOSINOPHILS # (AUTO) 0.2 10^3/uL (0.0-0.3); EOSINOPHILS % (AUTO) 3 % (0-10); HEMATOCRIT 36 % (40-54); LYMPHOCYTES % (AUTO) 16 % (12-44); MEAN CORPUSCULAR HEMOGLOBIN 29 PG (25-34); MEAN CORPUSCULAR HGB CONC 33 G/DL (32-36); MEAN CORPUSCULAR VOLUME 87 FL (80-99); MEAN PLATELET VOLUME 9.6 FL (7.4-10.4); MONOCYTES # (AUTO) 0.7 X 10^3 (0.0-1.0); MONOCYTES % (AUTO) 11 % (0-12); NEUTROPHILS # (AUTO) 4.4 X 10^3 (1.8-7.8); NEUTROPHILS % (AUTO) 70 % (42-75); PLATELET COUNT 202 10^3/uL (130-400); RED BLOOD COUNT 4.13 10^6/uL (4.35-5.85); WHITE BLOOD COUNT 6.3 10^3/uL (4.3-11.0)
[2017-10-15] MEDS ORDERED: fentaNYL INJECTION 100 MCG/2 ML AMP IVP ONE ×2 (15:00→16:00)
[2017-10-15 15:16] LABS: ALBUMIN 4.4 GM/DL (3.2-4.5); BILIRUBIN,TOTAL 0.5 MG/DL (0.1-1.0); CALCIUM 9.9 MG/DL (8.5-10.1); CREATININE SERUM 1.2 MG/DL (0.60-1.30); POTASSIUM 4.5 MMOL/L (3.6-5.0); TOTAL PROTEIN 7.5 GM/DL (6.4-8.2)
--- NOTE | 2017-10-15 15:19 | Diagnostic Imaging Report ---
CLINICAL INDICATION: Patient ran his finger into a table saw. Patient has right-hand fourth digit severe laceration, fifth digit has a small cut. EXAM: Portable chest x-ray upright view. COMPARISON: Chest x-ray dated 08/01/2017. FINDINGS: LUNGS/PLEURA: Stable calcified granuloma overlying the right lower lung field. Mild curvilinear lung markings in both lung bases. Otherwise, the lungs are clear. There is no pneumothorax. There is no pleural effusion. MEDIASTINUM: Unremarkable. PULMONARY VASCULATURE: Unremarkable. HEART: Unremarkable. BONES/EXTRATHORACIC SOFT TISSUE: There are hypertrophic spurs involving the thoracic spine. IMPRESSION: 1. There is a slight increase in the curvilinear opacities in both lung bases which may be related to atelectasis but superimposed infiltrate cannot be completely excluded. Superimposed chronic lung changes may also be considered. A chest x-ray with PA and lateral views may help better evaluate. 2. Otherwise, there is no radiographic evidence of acute cardiopulmonary process. Dictated by: Dictated on workstation # [id number]
--- NOTE | 2017-10-15 15:30 | Diagnostic Imaging Report ---
CLINICAL INDICATION: Patient ran his finger into a table saw. Patient's right hand fourth digit with severe laceration and fifth digit has a small cut. EXAM: X-ray of the right hand, three views. COMPARISON: X-ray of the right hand dated 01/24/2010. FINDINGS: There is no acute fracture or dislocation. There is soft tissue irregularity involving the distal aspect of the fourth digit with adjacent dressing material noted. There is slightly flexed position of the fourth DIP joint noted. There is no evidence of radiodense foreign object involving the fourth or fifth digits. There is a chronic calcification seen dorsal to the fourth DIP joint. There is slight increased size of the small subchondral cyst involving the radial styloid process. There are again noted hypertrophic spurs involving the IP joints and first through third MCP joints. There is associated joint space narrowing noted. Stable chronic fracture or calcification adjacent to the dorsal posterior aspect of the first distal phalanx. Stable chronic calcifications are seen adjacent to the second MCP joint and first IP joint. Remainder of the degenerative changes and other bony findings of the right hand have not significantly changed in the interim. IMPRESSION: 1: There is no gross evidence of acute fracture or dislocation involving the hand/fingers. 2: There is dressing material and soft tissue irregularity involving the distal aspect of the fourth digit likely related to patient's history of trauma. 3: Again seen degenerative changes throughout the digits of right hand and wrist. Dictated by: Dictated on workstation # [id number]
[2017-10-15 16:05] VITALS: BP 147/82
== END 2017-10-15 16:05 | disposition home or self-care (01) ==
LOC: EDUNIT# 14:15 → ER 14:17
DX: S61.214A Laceration without foreign body of right ring finger without damage to nail, initial encounter (principal); S66.324A Laceration of extensor muscle, fascia and tendon of right ring finger at wrist and hand level, initial encounter; I10 Essential (primary) hypertension; I25.10 Atherosclerotic heart disease of native coronary artery without angina pectoris; I25.2 Old myocardial infarction; E78.00 Pure hypercholesterolemia, unspecified; J43.9 Emphysema, unspecified; E11.9 Type 2 diabetes mellitus without complications; Z87.81 Personal history of (healed) traumatic fracture; Z95.5 Presence of coronary angioplasty implant and graft; Z87.891 Personal history of nicotine dependence; Z85.828 Personal history of other malignant neoplasm of skin; Z79.82 Long term (current) use of aspirin; Z79.4 Long term (current) use of insulin; W29.8XXA Contact with other powered hand tools and household machinery, initial encounter
CPT/HCPCS: 36415; 71045; 73130; 80053; 85025; 93005; 96361; 96365; 96375; 96376

== ENCOUNTER → 2017-12-17 | Outpatient (CLI) | payer MEDICARE ==
--- NOTE | 2017-12-17 17:22 | Diagnostic Imaging Report ---
INDICATION: Right knee pain. COMPARISON: None. FINDINGS: Three views of the right knee are obtained. No acute fracture, malalignment, or osseous destructive process is seen. There is minimal narrowing of the medial joint space. There is enthesopathy of the patella. Vascular calcifications are noted. Soft tissues are otherwise unremarkable. IMPRESSION: No acute osseous abnormality is seen. Dictated by: Dictated on workstation # [id number]
== END ==
LOC: RAD 16:39
PROVIDERS: ATTEND Nurse Practitioner Family
DX: M25.561 Pain in right knee (principal)
CPT/HCPCS: 73562

== ENCOUNTER 2017-12-26 18:50 | Emergency (ER) | payer MEDICARE ==
[~2017-12-26] VITALS: Ht 182.9 cm; Wt 145.1 kg
--- NOTE | 2017-12-26 19:09 | ED Respiratory ---
General Chief Complaint: Respiratory Problems Stated Complaint: POSS PNUEMONIA Source: patient Exam Limitations: no limitations History of Present Illness Date Seen by Provider: Dec 26, 2017 Time Seen by Provider: 19:07 Initial Comments To ER accompanied by with reports of possible pneumonia. He has a history of COPD. He does wear oxygen 4 L [id number] at home. He states that he's had "this cold" for 3 weeks. He is was seen by primary care provider Dr. Barakat 's clinic and given a shot of steroids, he is about to finish Levaquin and doxycycline. He maintains a persistent productive cough and shortness of breath. Denies fevers or chills. Timing/Duration: constant Severity: moderate Associated Symptoms: cough, shortness of breath, wheezing Allergies and Home Medications Allergies Coded Allergies: No Known Drug Allergies (Verified , 09/13/09) Home Medications Acetaminophen 500 Mg Tablet, 1,000 MG PO Q6H PRN for PAIN-MILD, (Reported) TAKES 2 (500MG) TABLETS Albuterol Sulfate 18 Gm Hfa.aer.ad, 2 PUFF INH Q6H PRN for SHORTNESS OF BREATH, (Reported) Amlodipine Besylate 5 Mg Tablet, 5 MG PO DAILY, (Reported) Aspirin 81 Mg Tablet.dr, 81 MG PO DAILY, (Reported) Atorvastatin Calcium 40 Mg Tablet, 40 MG PO DAILY, (Reported) Clopidogrel Bisulfate 75 Mg Tablet, 75 MG PO DAILY, (Reported) Ferrous Sulfate 325 Mg Tablet, 325 MG PO HS, (Reported) Gabapentin 600 Mg Tablet, 600 MG PO HS Prescribed by: ENRIQUE DUNN on 06/16/17 110 Insulin Aspart 100 Unit/1 Ml Susp, 10 UNIT SQ AC Prescribed by: ENRIQUE DUNN on 06/16/17 1106 Ipratropium/Albuterol Sulfate 3 Ml Ampul.neb, 3 ML NEB QID PRN for SHORTNESS OF BREATH, (Reported) Isosorbide Mononitrate 30 Mg Tab.er.24h, 30 MG PO DAILY, (Reported) Losartan Potassium 100 Mg Tablet, 100 MG PO DAILY, (Reported) Metformin HCl 1,000 Mg Tablet, 1,000 MG PO BID, (Reported) Metoprolol Tartrate 25 Mg Tablet, 25 MG PO DAILY, (Reported) Prednisone 20 Mg Tab, 40 MG PO DAILY Prescribed by: TATA HERMOSILLO on 12/26/171949 Patient Home Medication List Home Medication List Reviewed: Yes Constitutional: see HPI, No chills, No fever EENTM: see HPI Respiratory: see HPI, cough Cardiovascular: no symptoms reported Genitourinary: no symptoms reported Musculoskeletal: no symptoms reported Skin: no symptoms reported Psychiatric/Neurological: No Symptoms Reported Hematologic/Lymphatic: No Symptoms Reported Past [id number]-[id number]-Soztzq Hx Patient Social History Alcohol Beverage of Choice: Beer Type Used: Cigarettes Former Smoker, Quit: May 25, 1996 2nd Hand Smoke Exposure: Yes Recent Foreign Travel: No Contact w/Someone Who Travel: No Recent Hopitalizations: Yes (DC'D06/16/17) Immunizations Up To Date Tetanus Booster (TDap): More than 5yrs Date of Pneumonia Vaccine: Jun 27, 2017 Date of Influenza Vaccine: Jun 27, 2017 Seasonal Allergies Seasonal Allergies: No Surgeries History of Surgeries: Yes (SKIN CANCER REMOVED FROM BACK) Surgeries: Cardiac, Coronary Stent, Eye Surgery, Orthopedic Respiratory History of Respiratory Disorde: Yes Respiratory Disorders: Pneumonia, Sleep Apnea, COPD, Emphysema Currently Using CPAP: Yes Currently Using BIPAP: No Cardiovascular History of Cardiac Disorders: Yes (STENTS X 5) Cardiac Disorders: Coronary Artery Disease, Heart Attack, High Cholesterol, Hypertension Neurological History of Neurological Disord: No Reproductive System Hx Reproductive Disorders: No Sexually Transmitted Disease: No HIV/AIDS: No Genitourinary History of Genitourinary Disor: No Gastrointestinal History of Gastrointestinal Di: Yes Gastrointestinal Disorders: Chronic Diarrhea Musculoskeletal History of Musculoskeletal Dis: Yes (COLLAR BONE, KNEE SURGERY 10 YEAR AGO, LEFT KNEE) Musculoskeletal Disorders: Fractures Endocrine History of Endocrine Disorders: Yes Endocrine Disorders: Diabetes, Insulin dep HEENT HEENT Disorders: Cataract Loss of Vision: Denies Hearing Impairment: Hard of Hearing Cancer History of Cancer: Yes Cancer: Skin Psychosocial History of Psychiatric Problem: No Integumentary History of Skin or Integumenta: Yes (ACTINIC KERATOSIS, SKIN CANCER) Skin/Integumentary Disorders: Psoriasis Blood Transfusions History of Blood Disorders: No Adverse Reaction to a Blood Tr: No Family Medical History Family Medial History: Cancer 09 BROTHER Cancer of colon 09 BROTHER Cataract 03 MOTHER Chest pain 03 MOTHER Congenital heart disease 03 FATHER Congestive heart failure 03 FATHER Family history: Cardiovascular disease 03 FATHER 03 MOTHER Family history: Diabetes mellitus 03 FATHER Family history: Gastrointestinal disease 03 MOTHER Family history: Hypertension 03 MOTHER Hearing loss 03 FATHER Heart disease 03 FATHER History of - respiratory disease 03 FATHER Kidney disease 03 FATHER Myocardial infarction 03 FATHER Stroke 03 FATHER No Family History of: Abdominal aortic aneurysm Tsaile's disease Alcoholism Aphasia Cystic fibrosis Dementia Dysphagia Family history: Allergy Family history: Alzheimer's disease Family history: Arthritis Family history: Asthma Family history: Breast disease Family history: Coronary thrombosis Family history: Glaucoma Family history: Osteoporosis Family history: Thyroid disorder Headache Hereditary disease History of - anemia History of - disorder History of drug abuse Human immunodeficiency virus (HIV) seropositivity Hypercholesterolemia Infertile Malignant neoplasm of lung Parkinson's disease Prostate cancer Psychotic disorder Seizure disorder Tuberculosis Visual impairment Physical Exam Vital Signs Vital Signs - First Documented 12/26/17 19:00 Pulse 87 Resp 18 B/P (MAP) 129/73 (91) Pulse Ox 96 O2 Delivery Room Air O2 Flow Rate 4.00 Capillary Refill : General Appearance: WD/WN, no apparent distress Eyes: Bilateral Eye Normal Inspection, Bilateral Eye PERRL, Bilateral Eye EOMI HEENT: PERRL/EOMI, normal ENT inspection Neck: non-tender Respiratory: no respiratory distress, no accessory muscle use, decreased breath sounds, wheezing Cardiovascular: regular rate, rhythm, no murmur Gastrointestinal: normal bowel sounds, non tender, soft Neurologic/Psychiatric: alert, normal mood/affect, oriented x 3 Skin: normal color, warm/dry Progress/Results/Core Measures Suspected Sepsis SIRS Temperature: Pulse: Respiratory Rate: Laboratory Tests 12/26/17 19:02: White Blood Count 7.9 Blood Pressure / Mean: Laboratory Tests 12/26/17 19:02: Creatinine 1.33H, Platelet Count 199, Total Bilirubin 0.3 Results/Orders Lab Results Laboratory Tests Test 12/26/17 19:02 Range/Units White Blood Count 7.9 4.3-11.0 10^3/uL Red Blood Count 4.28 L 4.35-5.85 10^6/uL Hemoglobin 12.6 L 13.3-17.7 G/DL Hematocrit 37 L 40-54 % Mean Corpuscular Volume 87 80-99 FL Mean Corpuscular Hemoglobin 29 25-34 PG Mean Corpuscular Hemoglobin Concent 34 32-36 G/DL Red Cell Distribution Width 14.7 H 10.0-14.5 % Platelet Count 199 130-400 10^3/uL Mean Platelet Volume 9.8 7.4-10.4 FL Neutrophils (%) (Auto) 76 H 42-75 % Lymphocytes (%) (Auto) 15 12-44 % Monocytes (%) (Auto) 7 0-12 % Eosinophils (%) (Auto) 1 0-10 % Basophils (%) (Auto) 1 0-10 % Neutrophils # (Auto) 6.0 1.8-7.8 X 10^3 Lymphocytes # (Auto) 1.2 1.0-4.0 X 10^3 Monocytes # (Auto) 0.6 0.0-1.0 X 10^3 Eosinophils # (Auto) 0.1 0.0-0.3 10^3/uL Basophils # (Auto) 0.0 0.0-0.1 10^3/uL Sodium Level 139 135-145 MMOL/L Potassium Level 4.1 3.6-5.0 MMOL/L Chloride Level 105 98-107 MMOL/L Carbon Dioxide Level 24 21-32 MMOL/L Anion Gap 10 5-14 MMOL/L Blood Urea Nitrogen 32 H 7-18 MG/DL Creatinine 1.33 H 0.60-1.30 MG/DL Estimat Glomerular Filtration Rate 52 BUN/Creatinine Ratio 24 Glucose Level 262 H 70-105 MG/DL Calcium Level 9.2 8.5-10.1 MG/DL Total Bilirubin 0.3 0.1-1.0 MG/DL Aspartate Amino Transf (AST/SGOT) 15 5-34 U/L Alanine Aminotransferase (ALT/SGPT) 19 0-55 U/L Alkaline Phosphatase 57 40-136 U/L B-Type Natriuretic Peptide 25.3 <100.0 PG/ML Total Protein 7.0 6.4-8.2 GM/DL Albumin 4.4 3.2-4.5 GM/DL My Orders Orders - TATA HERMOSILLO [employer] Cbc With Automated Diff (12/26/17 19:06) Comprehensive Metabolic Panel (12/26/17 19:06) Saline Lock/Iv-Start (12/26/17 19:06) BNP (12/26/17 19:06) Chest Pa/Lat (2 View) (12/26/17 19:06) Methylprednisolone Sod Succ (Solu-Medrol (12/26/17 19:15) Albuterol/Ipra Inhalation Soln (Duoneb I (12/26/17 19:15) Svn Sm Volume Nebulizer Rt-Rfs (12/26/17 19:10) Ns Iv 500 Ml (Sodium Chloride 0.9%) (12/26/17 19:45) Medications Given in ED Current Medications Medications Dose Ordered Sig/Regino Route Start Time Stop Time Status Last Admin Dose Admin Albuterol/ Ipratropium 3 ml ONCE ONCE INH 12/26/17 19:15 12/26/17 19:16 DC 12/26/17 19:28 3 ML Methylprednisolone Sodium Succinate 125 mg ONCE ONCE IVP 12/26/17 19:15 12/26/17 19:16 DC 12/26/17 19:25 125 MG Vital Signs/I&O Vital Sign - Last 12Hours 12/26/17 12/26/17 19:00 19:35 Pulse 87 Resp 18 B/P (MAP) 129/73 (91) Pulse Ox 96 92 O2 Delivery Room Air Nasal Cannula O2 Flow Rate 4.00 2.00 Capillary Refill : Diagnostic Imaging Diagonstic Imaging: Xray Comments NAME: LIZDEVIN Harper Donna MED REC#: [id number] PT STATUS: REG ER : 1940 PHYSICIAN: TATA HERMOSILLO APRN ADMIT DATE: 12/26/17/ER Draft Date of Exam:12/26/17 CHEST PA/LAT (2 VIEW) EXAM: Chest PA/LAT (2 view). INDICATION: Cough. Wheezing. Congestion. COMPARISON: Chest radiograph, 10/15/2017. FINDINGS: Normal heart size. Mildly prominent central pulmonary vascularity is stable. Mild interstitial opacities in the right lung base have overall improved since the prior exam. No pleural effusion or pneumothorax. No new dense consolidation. No acute osseous findings. IMPRESSION: Mild interstitial opacities in the right lung base have improved since the prior exam. These are primarily linear and may represent chronic scarring. Remainder stable. No new dense consolidation. Dictated on workstation # [id number] Dict: 12/26/171937 Trans: 12/26/171945 [facility] [phone] Interpreted by: TOÑITO TYSON MD Electronically signed by: Departure Communication (Admissions) Progress Notes 1946-lung sounds are diminished, wheezing is minimal. He is 96% on his baseline 4 L of oxygen. He is already on doxycycline and Levaquin. He would be appropriate to discharge home with the addition of steroids so that will be our plan. He does already have a nebulizer at home. Impression Impression: Primary Impression: COPD exacerbation Disposition: 01 HOME, SELF-CARE Condition: Stable Departure-Patient Inst. Decision time for Depature: 19:48 Referrals: YVETTE BARAKAT DO (PCP/Family) Primary Care Physician Patient Instructions: Exacerbation of COPD Add. Discharge Instructions: 1. Take the steroids as directed and continue your antibiotics. Call Dr. BARAKAT to make an appointment for follow-up. Despite the negative effects of prednisone this will be helpful for you. Return to ER for any worsening symptoms such as shortness of breath is worse or fevers. All discharge instructions reviewed with patient and/or family. Voiced understanding. Scripts Prednisone (Prednisone) 20 Mg Tab 40 MG PO DAILY, #8 TAB Prov: TATA HERMOSILLO APRN 12/26/17 Copy Copies To 1: YVETTE BARAKAT PETER J APRN Dec 26, 2017 19:09
[2017-12-26] MEDS ORDERED: methylPREDNISolone 125 MG (Solu-MEDROL) VIAL IVP ONE (19:15)
[2017-12-26] MEDS ORDERED: RT-ALBUTEROL/IPRATROPIUM 3 ML (DUONEB) VIAL INH ONE (19:15)
[2017-12-26 19:16] LABS: BASOPHILS % (AUTO) 1 % (0-10); EOSINOPHILS # (AUTO) 0.1 10^3/uL (0.0-0.3); EOSINOPHILS % (AUTO) 1 % (0-10); HEMATOCRIT 37 % (40-54); HEMOGLOBIN 12.6 G/DL (13.3-17.7); LYMPHOCYTES # (AUTO) 1.2 X 10^3 (1.0-4.0); LYMPHOCYTES % (AUTO) 15 % (12-44); MEAN CORPUSCULAR HEMOGLOBIN 29 PG (25-34); MEAN CORPUSCULAR HGB CONC 34 G/DL (32-36); MEAN CORPUSCULAR VOLUME 87 FL (80-99); MEAN PLATELET VOLUME 9.8 FL (7.4-10.4); MONOCYTES # (AUTO) 0.6 X 10^3 (0.0-1.0); MONOCYTES % (AUTO) 7 % (0-12); NEUTROPHILS % (AUTO) 76 % (42-75); PLATELET COUNT 199 10^3/uL (130-400); RED BLOOD COUNT 4.28 10^6/uL (4.35-5.85); RED CELL DISTRIBUTION WIDTH 14.7 % (10.0-14.5); WHITE BLOOD COUNT 7.9 10^3/uL (4.3-11.0)
[2017-12-26 19:30] LABS: ALBUMIN 4.4 GM/DL (3.2-4.5); BILIRUBIN,TOTAL 0.3 MG/DL (0.1-1.0); CALCIUM 9.2 MG/DL (8.5-10.1); CREATININE SERUM 1.33 MG/DL (0.60-1.30); POTASSIUM 4.1 MMOL/L (3.6-5.0)
[2017-12-26] MEDS ORDERED: NS IV 500 ML 500 ML IV SCH (19:45)
--- NOTE | 2017-12-26 19:47 | Diagnostic Imaging Report ---
EXAM: Chest PA/LAT (2 view). INDICATION: Cough. Wheezing. Congestion. COMPARISON: Chest radiograph, 10/15/2017. FINDINGS: Normal heart size. Mildly prominent central pulmonary vascularity is stable. Mild interstitial opacities in the right lung base have overall improved since the prior exam. No pleural effusion or pneumothorax. No new dense consolidation. No acute osseous findings. IMPRESSION: Mild interstitial opacities in the right lung base have improved since the prior exam. These are primarily linear and may represent chronic scarring. Remainder stable. No new dense consolidation. Dictated by: Dictated on workstation # [id number]
[2017-12-26] MEDS ORDERED: PRD20T PO (19:50)
[2017-12-26] MEDS ORDERED: predniSONE 20 MG TAB PO ONE (20:15)
[2017-12-26 20:37] VITALS: BP 142/68
== END 2017-12-26 20:37 | disposition home or self-care (01) ==
LOC: EDUNIT# 18:50 → ER 18:51
DX: J44.1 Chronic obstructive pulmonary disease with (acute) exacerbation (principal); I25.10 Atherosclerotic heart disease of native coronary artery without angina pectoris; I25.2 Old myocardial infarction; I10 Essential (primary) hypertension; E11.9 Type 2 diabetes mellitus without complications; E78.00 Pure hypercholesterolemia, unspecified; G47.30 Sleep apnea, unspecified; Z95.5 Presence of coronary angioplasty implant and graft; Z87.19 Personal history of other diseases of the digestive system; Z87.01 Personal history of pneumonia (recurrent); Z79.51 Long term (current) use of inhaled steroids; Z85.828 Personal history of other malignant neoplasm of skin; Z79.52 Long term (current) use of systemic steroids; Z80.0 Family history of malignant neoplasm of digestive organs; Z87.891 Personal history of nicotine dependence; Z79.02 Long term (current) use of antithrombotics/antiplatelets; Z79.84 Long term (current) use of oral hypoglycemic drugs
CPT/HCPCS: 36415; 71046; 80053; 83880; 85025; 94640; 96361; 96374

== ENCOUNTER 2018-04-18 23:01 | Observation (INO) | payer MEDICARE ==
[~2018-04-18] VITALS: Ht 182.9 cm; Wt 99.1 kg
[~2018-04-18 23:01] MED LIST changes: -IPRA3AMP NEB; +IPRA3AMP31 NEB; -METF1000 PO; +METF10002 PO; +PIOG15TA67 PO
[2018-04-18] MEDS ORDERED: methylPREDNISolone 125 MG (Solu-MEDROL) VIAL IV STA (23:12)
[2018-04-18] MEDS ORDERED: RT-ALBUTEROL/IPRATROPIUM 3 ML (DUONEB) VIAL ONE (23:13)
[2018-04-18] MEDS ORDERED: DEXAMETHASONE 4 MG/ML SDV (DECADRON) ONE (23:13)
[2018-04-18] MEDS ORDERED: DEXAMETHASONE 4 MG/ML SDV (DECADRON) IH ONE (23:15)
[2018-04-18] MEDS ORDERED: RT-ALBUTEROL/IPRATROPIUM 3 ML (DUONEB) VIAL INH ONE ×2 (23:15→23:45)
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
[2018-04-18 23:22] LABS: BASOPHILS % (AUTO) 1 % (0-10); EOSINOPHILS # (AUTO) 0.2 10^3/uL (0.0-0.3); EOSINOPHILS % (AUTO) 3 % (0-10); HEMATOCRIT 35 % (40-54); LYMPHOCYTES # (AUTO) 0.8 X 10^3 (1.0-4.0); LYMPHOCYTES % (AUTO) 13 % (12-44); MEAN CORPUSCULAR HEMOGLOBIN 31 PG (25-34); MEAN CORPUSCULAR HGB CONC 35 G/DL (32-36); MEAN CORPUSCULAR VOLUME 89 FL (80-99); MEAN PLATELET VOLUME 9.8 FL (7.4-10.4); MONOCYTES # (AUTO) 0.7 X 10^3 (0.0-1.0); MONOCYTES % (AUTO) 12 % (0-12); NEUTROPHILS # (AUTO) 4.1 X 10^3 (1.8-7.8); NEUTROPHILS % (AUTO) 71 % (42-75); PLATELET COUNT 177 10^3/uL (130-400); RED BLOOD COUNT 3.91 10^6/uL (4.35-5.85); RED CELL DISTRIBUTION WIDTH 13.5 % (10.0-14.5); WHITE BLOOD COUNT 5.8 10^3/uL (4.3-11.0)
[2018-04-18] MEDS ORDERED: ROPI2TAB4 PO (23:25)
[2018-04-18] MEDS ORDERED: LATA2.5D5 OS (23:25)
[2018-04-18 23:34] LABS: PROTHROMBIN TIME PATIENT 13.2 SEC (12.2-14.7)
[2018-04-18] MEDS ORDERED: RT-ALBUTEROL SULF 2.5 MG/3 ML PRE-MIX VIAL ONE (23:38)
[2018-04-18] MEDS ORDERED: RT-ALBUTEROL SULF 2.5 MG/3 ML PRE-MIX VIAL INH STA ×5 (23:38)
[2018-04-18 23:41] LABS: ALANINE AMINOTRANSFERASE 15 U/L (0-55); ALBUMIN 4.4 GM/DL (3.2-4.5); ALKALINE PHOSPHATASE 65 U/L (40-136); BILIRUBIN,TOTAL 0.4 MG/DL (0.1-1.0); BUN/CREATININE RATIO 17; CALCIUM 9.4 MG/DL (8.5-10.1); CARBON DIOXIDE 25 MMOL/L (21-32); CHLORIDE 103 MMOL/L (98-107); CREATININE SERUM 1.56 MG/DL (0.60-1.30); GFR ESTIMATED 43; GLUCOSE 246 MG/DL (70-105); MAGNESIUM 2.2 MG/DL (1.8-2.4); POTASSIUM 4.2 MMOL/L (3.6-5.0); SODIUM 138 MMOL/L (135-145); TOTAL PROTEIN 6.8 GM/DL (6.4-8.2)
[2018-04-18] MEDS ORDERED: cefTRIAXone INJECTION 1,000 MG in NS (IVPB) 50 ML IV ONE (23:45)
[2018-04-18 23:48] LABS: MYOGLOBIN SERUM 89.3 NG/ML (10.0-92.0)
[2018-04-19] VITALS (10 sets, daily range): BP systolic 134–176; BP diastolic 59–78
[2018-04-19] MEDS ORDERED: DOXYCYCLINE INJECTION 100 MG in NS (IVPB) 50 ML IV SCH (01:15)
[2018-04-19] MEDS ORDERED: RT-ALBUTEROL/IPRATROPIUM 3 ML (DUONEB) VIAL INH PRN (02:00)
[2018-04-19] MEDS: RT-ALBUTEROL/IPRATROPIUM 3 ML (DUONEB) VIAL INH SCH ×5 (02:18→18:22)
[2018-04-19] MEDS: methylPREDNISolone 125 MG (Solu-MEDROL) VIAL IVP SCH ×4 (05:08→23:44)
[2018-04-19] MEDS: inSUlin ASPART (NovoLOG) 1 UNIT/0.01 ML (CHARGE PER UNIT) SC SCH ×4 (05:25→21:05)
[2018-04-19 06:44] LABS: BASOPHILS % (AUTO) 0 % (0-10); EOSINOPHILS % (AUTO) 0 % (0-10); HEMATOCRIT 36 % (40-54); HEMOGLOBIN 11.8 G/DL (13.3-17.7); LYMPHOCYTES # (AUTO) 0.2 X 10^3 (1.0-4.0); LYMPHOCYTES % (AUTO) 4 % (12-44); MEAN CORPUSCULAR HEMOGLOBIN 29 PG (25-34); MEAN CORPUSCULAR HGB CONC 33 G/DL (32-36); MEAN CORPUSCULAR VOLUME 89 FL (80-99); MEAN PLATELET VOLUME 10.1 FL (7.4-10.4); MONOCYTES # (AUTO) 0.1 X 10^3 (0.0-1.0); MONOCYTES % (AUTO) 2 % (0-12); NEUTROPHILS # (AUTO) 5.4 X 10^3 (1.8-7.8); NEUTROPHILS % (AUTO) 93 % (42-75); PLATELET COUNT 177 10^3/uL (130-400); RED BLOOD COUNT 4.04 10^6/uL (4.35-5.85); RED CELL DISTRIBUTION WIDTH 13.7 % (10.0-14.5); WHITE BLOOD COUNT 5.8 10^3/uL (4.3-11.0)
[2018-04-19 07:05] LABS: BAND NEUTROPHILS 0 %; BASOPHILS % (MANUAL) 1 %; EOSINOPHILS % (MANUAL) 0 %; LYMPHOCYTES % (MANUAL) 2 %; MONOCYTES % (MANUAL) 3 %; NEUTROPHILS % (MANUAL) 94 %; RBC MORPH NORMAL
[2018-04-19] MEDS ORDERED: CATHETER FLUSH 10 ML SYR IV PRN (07:15)
[2018-04-19 07:32] LABS: ALBUMIN 4.5 GM/DL (3.2-4.5); BILIRUBIN,TOTAL 0.4 MG/DL (0.1-1.0); CALCIUM 9.6 MG/DL (8.5-10.1); CREATININE SERUM 1.46 MG/DL (0.60-1.30); POTASSIUM 4.4 MMOL/L (3.6-5.0); TOTAL PROTEIN 6.7 GM/DL (6.4-8.2)
--- NOTE | 2018-04-19 07:32 | Diagnostic Imaging Report ---
Indication: Shortness of breath Portable chest 11:29 PM Heart size and pulmonary vascularity are normal. Lungs are clear. There are no effusions or pneumothoraces. Impression: Negative chest. Dictated by: Dictated on workstation # [id number]
[2018-04-19] MEDS ORDERED: ALBU2.5V4 NEB (11:03)
[2018-04-19] MEDS ORDERED: FLUO40CR8 TOP (11:03)
[2018-04-19] MEDS ORDERED: METF500T8 PO (11:03)
[2018-04-19] MEDS ORDERED: DICL100G31 TOP (11:03)
[2018-04-19] MEDS ORDERED: BUDE10.2 IH (11:03)
[2018-04-19] MEDS ORDERED: PANT40TA3 PO (11:03)
[2018-04-19] MEDS ORDERED: ATOR40TA70 PO (11:03)
[2018-04-19] MEDS ORDERED: INSU100I29 SC (11:03)
--- NOTE | 2018-04-19 13:29 | History & Physicial ---
History of Present Illness History of Present Illness Reason for visit/HPI This is a 77 year old male with a history of COPD and noncompliance who presented to the emergency room with complaint of worsening shortness of air and cough. He was in acute respiratory distress in the emergency room with wheezing and had to be given an hour long nebulizer treatment. He was also given IV solumedrol and was requiring 4L of oxygen via NC so it was decided he would need admission for further treatment. Date of Admission Apr 19, 2018 at 00:01 Date Seen by Provider: Apr 19, 2018 Time Seen by Provider: 13:23 I consulted on this patient on 04/19/18 13:23 Attending Physician Lita Barakat DO Admitting Physician Lita Barakat DO Consult Allergies and Home Medications Allergies Coded Allergies: No Known Drug Allergies (Verified , 09/13/09) Home Medications Acetaminophen 500 Mg Tablet, 1,000 MG PO Q6H PRN for PAIN-MILD, (Reported) TAKES 2 (500MG) TABLETS Albuterol Sulfate 18 Gm Hfa.aer.ad, 2 PUFF INH Q6H PRN for SHORTNESS OF BREATH, (Reported) Albuterol Sulfate 2.5 Mg/3 Ml Vial.neb, 2.5 MG NEB Q4H PRN for SHORTNESS OF BREATH, (Reported) Amlodipine Besylate 5 Mg Tablet, 5 MG PO DAILY, (Reported) Aspirin 81 Mg Tablet.dr, 81 MG PO DAILY, (Reported) Atorvastatin Calcium 40 Mg Tablet, 40 MG PO DAILY, (Reported) Budesonide/Formoterol Fumarate 10.2 Gm Hfa.aer.ad, 2 PUFF IH BID PRN for SHORTNESS OF BREATH, (Reported) Clopidogrel Bisulfate 75 Mg Tablet, 75 MG PO DAILY, (Reported) Diclofenac Sodium 100 Gm Gel..gram., TOP QID PRN for JOINT PAIN, (Reported) Fluorouracil 40 Gm Cream..g., TOP BID, (Reported) Insulin Detemir 100 Unit/1 Ml Insuln.pen, 40 UNITS SC HS, (Reported) Isosorbide Mononitrate 30 Mg Tab.er.24h, 30 MG PO DAILY, (Reported) Latanoprost 2.5 Ml Drops, 1 DROP OS HS, (Reported) Losartan Potassium 100 Mg Tablet, 100 MG PO DAILY, (Reported) Metformin HCl 500 Mg Tab.er.24h, 500 MG PO DAILY, (Reported) Pantoprazole Sodium 40 Mg Tablet.dr, 40 MG PO DAILY, (Reported) Ropinirole HCl 2 Mg Tablet, 2-6 MG PO HS, (Reported) Patient Home Medication List Home Medication List Reviewed: Yes Past Elnsihg-Qitbjg-Ptzlfg Hx Patient Social History Marrital Status: Alcohol Use: Occasionally Uses Number of Drinks Today: AA Alcohol Beverage of Choice: Beer Recreational Drug Use: No Smoking Status: Former Smoker Former Smoker, Quit: May 25, 1996 Type Used: Cigars 2nd Hand Smoke Exposure: Yes Physical Abuse Screen: No Sexual Abuse: No Recent Foreign Travel: No Contact w/other who traveled: No Recent Hopitalizations: No Recent Infectious Disease Expo: No Immunizations Up To Date Tetanus Booster (TDap): More than 5yrs Pediatric: Yes Date of Pneumonia Vaccine: Jun 27, 2017 Date of Influenza Vaccine: Jun 27, 2017 Seasonal Allergies Seasonal Allergies: Yes Surgeries No Cardiac, Coronary Stent, Eye Surgery, Orthopedic Respiratory Yes Currently Using CPAP: Yes Currently Using BIPAP: No Cardiovascular Yes (stents x5) Coronary Artery Disease, Heart Attack, High Cholesterol, Hypertension Neurological No Reproductive System Hx Reproductive Disorders: No Sexually Transmitted Disease: No HIV/AIDS: No Genitourinary No Gastrointestinal No Chronic Diarrhea Musculoskeletal No Fractures Endocrine History of Endocrine Disorders: Yes Endocrine Disorders: Diabetes, Insulin dep HEENT History of HEENT Disorders: No HEENT Disorders: Cataract Loss of Vision: Denies Hearing Impairment: Hard of Hearing Cancer Yes Skin Did You Recieve Any Treatments: Yes Type of Treatment: Surgical Intervention Psychosocial History of Psychiatric Problem: No Integumentary History of Skin or Integumenta: Yes Skin/Integumentary Disorders: Eczema Blood Transfusions History of Blood Disorders: No Adverse Reaction to a Blood Tr: No Family Medical History Family Hx: Cancer 09 BROTHER Cancer of colon 09 BROTHER Cataract 03 MOTHER Chest pain 03 MOTHER Congenital heart disease 03 FATHER Congestive heart failure 03 FATHER Family history: Cardiovascular disease 03 FATHER 03 MOTHER Family history: Diabetes mellitus 03 FATHER Family history: Gastrointestinal disease 03 MOTHER Family history: Hypertension 03 MOTHER Hearing loss 03 FATHER Heart disease 03 FATHER History of - respiratory disease 03 FATHER Kidney disease 03 FATHER Myocardial infarction 03 FATHER Stroke 03 FATHER No Family History of: Abdominal aortic aneurysm Jae's disease Alcoholism Aphasia Cystic fibrosis Dementia Dysphagia Family history: Allergy Family history: Alzheimer's disease Family history: Arthritis Family history: Asthma Family history: Breast disease Family history: Coronary thrombosis Family history: Glaucoma Family history: Osteoporosis Family history: Thyroid disorder Headache Hereditary disease History of - anemia History of - disorder History of drug abuse Human immunodeficiency virus (HIV) seropositivity Hypercholesterolemia Infertile Malignant neoplasm of lung Parkinson's disease Prostate cancer Psychotic disorder Seizure disorder Tuberculosis Visual impairment Constitutional: weakness EENTM: nose congestion Respiratory: cough, dyspnea on exertion, short of breath, wheezing Cardiovascular: No no symptoms reported, No see HPI, No chest pain, No edema, No Hx of Intervention, No palpitations, No syncope, No vascular heart diseas, No other Gastrointestinal: No RUQ, No LUQ, No RLQ, No LLQ, No no symptoms reported, No see HPI, No abdominal pain, No constipation, No diarrhea, No dysphagia, No hematemesis, No heartburn, No jaundice, No loss of appetite, No melena, No nausea, No vomiting, No other Genitourinary: No no symptoms reported, No see HPI, No decreased output, No discharge, No dysuria, No frequency, No hematuria, No hesitancy, No incontinence , No nocturia, No pain, No other Musculoskeletal: No no symptoms reported, No see HPI, No back pain, No gout, No joint pain, No joint swelling, No muscle pain, No muscle stiffness, No muscle cramps, No muscle twitching, No muscle weakness, No neck pain, No other Skin: No no symptoms reported, No see HPI, No change in color, No change in hair/nails, No dryness, No hx of skin cancer, No lesions, No lumps, No pruritus , No rash, No other Psychiatric/Neurological: Numbness, Other (restless legs) Physical Exam Vital Signs Vital Signs - First Documented 04/19/18 02:06 FiO2 96 Capillary Refill : NONELess Than 3 Seconds Height, Weight, BMI Height: 6'0.00" Weight: 218lbs. 8.0oz. 99.189109kx; 29.6 BMI Method:Stated General Appearance: No Apparent Distress HEENT: Normal ENT Inspection Neck: Supple Respiratory: Lungs Clear, Decreased Breath Sounds Cardiovascular: Regular Rate, Rhythm, Systolic Murmur, Gallop/S4 Gastrointestinal: Normal Bowel Sounds, Non Tender, Soft Rectal: Deferred Back: No CVA Tenderness Extremity: Non Tender, No Calf Tenderness, No Pedal Edema Neurologic/Psychiatric: Alert, Oriented x3 Skin: Normal Color, Warm/Dry Comments Laboratory Tests 04/18/18 23:15: White Blood Count 5.8, Red Blood Count 3.91L, Hemoglobin 12.0L, Hematocrit 35L, Mean Corpuscular Volume 89, Mean Corpuscular Hemoglobin 31, Mean Corpuscular Hemoglobin Concent 35, Red Cell Distribution Width 13.5, Platelet Count 177, Mean Platelet Volume 9.8, Neutrophils (%) (Auto) 71, Lymphocytes (%) (Auto) 13, Monocytes (%) (Auto) 12, Eosinophils (%) (Auto) 3, Basophils (%) (Auto) 1, Neutrophils # (Auto) 4.1, Lymphocytes # (Auto) 0.8L, Monocytes # (Auto) 0.7, Eosinophils # (Auto) 0.2, Basophils # (Auto) 0.0, Prothrombin Time 13.2, INR Comment 1.0, Activated Partial Thromboplast Time 24, Sodium Level 138, Potassium Level 4.2, Chloride Level 103, Carbon Dioxide Level 25, Anion Gap 10, Blood Urea Nitrogen 27H, Creatinine 1.56H, Estimat Glomerular Filtration Rate 43 , BUN/Creatinine Ratio 17, Glucose Level 246H, Calcium Level 9.4, Magnesium Level 2.2, Total Bilirubin 0.4, Aspartate Amino Transf (AST/SGOT) 18, Alanine Aminotransferase (ALT/SGPT) 15, Alkaline Phosphatase 65, Myoglobin 89.3, Troponin I < 0.30, B-Type Natriuretic Peptide 10.7, Total Protein 6.8, Albumin 4.4 04/18/18 23:49: Lactic Acid Level 2.01*H 04/19/18 01:50: Lactic Acid Level 3.14*H 04/19/18 05:12: Glucometer 392H 04/19/18 06:08: White Blood Count 5.8, Red Blood Count 4.04L, Hemoglobin 11.8L, Hematocrit 36L, Mean Corpuscular Volume 89, Mean Corpuscular Hemoglobin 29, Mean Corpuscular Hemoglobin Concent 33, Red Cell Distribution Width 13.7, Platelet Count 177, Mean Platelet Volume 10.1, Neutrophils (%) (Auto) 93H, Lymphocytes (%) (Auto) 4L , Monocytes (%) (Auto) 2, Eosinophils (%) (Auto) 0, Basophils (%) (Auto) 0, Neutrophils # (Auto) 5.4, Lymphocytes # (Auto) 0.2L, Monocytes # (Auto) 0.1, Eosinophils # (Auto) 0.0, Basophils # (Auto) 0.0, Neutrophils % (Manual) 94, Lymphocytes % (Manual) 2, Monocytes % (Manual) 3, Eosinophils % (Manual) 0, Basophils % (Manual) 1, Band Neutrophils 0, Blood Morphology Comment NORMAL, Sodium Level 138, Potassium Level 4.4, Chloride Level 103, Carbon Dioxide Level 20L, Anion Gap 15H, Blood Urea Nitrogen 28H, Creatinine 1.46H, Estimat Glomerular Filtration Rate 47, BUN/Creatinine Ratio 19, Glucose Level 375H, Calcium Level 9.6, Total Bilirubin 0.4, Aspartate Amino Transf (AST/SGOT) 17, Alanine Aminotransferase (ALT/SGPT) 16, Alkaline Phosphatase 65, Total Protein 6.7, Albumin 4.5, Triglycerides Level 133, Cholesterol Level 133, LDL Cholesterol Direct 70, VLDL Cholesterol 27, HDL Cholesterol 36L 04/19/18 10:47: Glucometer 323H Assessment/Plan Assessment and Plan 1. Acute Respiratory Distress--oxygen and SVNS and treatment of COPD exacerbation 2. Acute Exacerbation of COPD--much improved, wanting to go home, will wean solumedrol and continue SVNS, oxygen and abx 3. DMII--insulin requiring--resume levemir and continue SSI 4. Hypertension--restart home meds 5. Restless legs--resume sinemet as patient states this is what helped him the most of all the meds he has tried 6. Acute Renal Insuff--monitor BUN/Cr Admission Diagnosis Admission Status: Inpatient Order (span 2 midnights) Reason for Inpatient Admission: Will require IV antibiotics and IV solumedrol to be weaned Clinical Quality Measures DVT/VTE Risk/Contraindication: Risk Factor Score Per Nursin RFS Level Per Nursing on Admit: 2=Moderate LITA BARAKAT DO Apr 19, 2018 13:29
[2018-04-19] MEDS ORDERED: NON-FORMULARY MEDICATION 1 EA EA (Budesonide/Formoterol Fumarate (Symbicort 160-4.5 Mcg In IH PRN (13:30)
[2018-04-19] MEDS ORDERED: NON-FORMULARY MEDICATION 1 EA EA (Acetaminophen (Tylenol Extra Strength) 1,000 MG) PO PRN (13:30)
[2018-04-19] MEDS: CATHETER FLUSH 10 ML SYR IV SCH ×2 (13:35→21:09)
[2018-04-19] MEDS ORDERED: RT-ADVAIR HFA 115/21 MCG PER PUFF IH PRN (13:45)
[2018-04-19] MEDS: ACETAMINOPHEN 500 MG TAB (TYLENOL) PO PRN (14:06)
[2018-04-19] MEDS ORDERED: CARB1TAB41 PO (14:08)
[2018-04-19] MEDS ORDERED: ROPI2TAB4 PO (14:08)
[2018-04-19] MEDS ORDERED: NON-FORMULARY MEDICATION 1 EA EA (Ropinirole HCl 2 MG) PO PRN (17:30)
[2018-04-19] MEDS ORDERED: rOPINIRole 1 MG (REQUIP) TABLET PO PRN (17:45)
[2018-04-19] MEDS: DOXYCYCLINE 100 MG (VIBRAMYCIN) TABLET PO SCH (17:49)
[2018-04-19] MEDS ORDERED: inSUlin DETERMIR 1 UNIT/0.01 ML (LEVEMIR) CHARGE PER UNIT SQ SCH (21:00)
[2018-04-19] MEDS ORDERED: LATANOPROST 0.005% (XALATAN) OPHTH SOLN 2.5 ML OS SCH (21:00)
[2018-04-19] MEDS ORDERED: cefTRIAXone INJECTION 1,000 MG in NS (IVPB) 50 ML IV SCH (23:00)
[2018-04-20] MEDS: ACETAMINOPHEN 500 MG TAB (TYLENOL) PO PRN ×2 (03:35→09:21)
[2018-04-20 04:07] VITALS: BP 173/77
[2018-04-20] MEDS: RT-ALBUTEROL/IPRATROPIUM 3 ML (DUONEB) VIAL INH SCH ×2 (06:41→10:46)
[2018-04-20] MEDS: DOXYCYCLINE 100 MG (VIBRAMYCIN) TABLET PO SCH (06:50)
[2018-04-20] MEDS: inSUlin ASPART (NovoLOG) 1 UNIT/0.01 ML (CHARGE PER UNIT) SC SCH ×2 (06:50→11:24)
[2018-04-20] MEDS: CATHETER FLUSH 10 ML SYR IV SCH (06:53)
[2018-04-20] MEDS: methylPREDNISolone 125 MG (Solu-MEDROL) VIAL IVP SCH ×2 (06:53→11:23)
[2018-04-20] MEDS ORDERED: metFORMIN XR 500 MG (GLUCOPHAGE XR) TAB PO SCH (07:00)
[2018-04-20] MEDS ORDERED: PANTOPRAZOLE 40 MG (PROTONIX) TAB PO SCH (07:00)
[2018-04-20 08:00] VITALS: BP 155/65
[2018-04-20] MEDS ORDERED: RT-ADVAIR HFA 115/21 MCG PER PUFF IH SCH (08:00)
[2018-04-20] MEDS ORDERED: CLOPIDOGREL 75 MG (PLAVIX) TABLET PO SCH (09:00)
[2018-04-20] MEDS ORDERED: ATORVASTATIN 40 MG (LIPITOR) TABLET PO SCH (09:00)
[2018-04-20] MEDS ORDERED: PATIENT MAY USE OWN MED,SINGLE MED PO SCH (09:00)
[2018-04-20] MEDS ORDERED: LOSARTAN 100 MG (COZAAR) TABLET PO SCH (09:00)
[2018-04-20] MEDS ORDERED: ASPIRIN E.C. 81 MG (ECOTRIN) TAB PO SCH (09:00)
[2018-04-20] MEDS ORDERED: NON-FORMULARY MEDICATION 1 EA EA (Aspirin (Aspir 81) 81 MG) PO SCH (09:00)
[2018-04-20] MEDS ORDERED: ISOSORBIDE MONONITRATE 30 MG (IMDUR) TAB PO SCH (09:00)
[2018-04-20] MEDS ORDERED: amLODIPine 5 MG (NORVASC) TAB PO SCH (09:00)
[2018-04-20] MEDS ORDERED: NON-FORMULARY MEDICATION 1 EA EA (Amlodipine Besylate 5 MG) PO SCH (09:00)
[2018-04-20] MEDS ORDERED: SINEMET CR 50/200 (CARBIDOPA/LEVODOPA SA) TAB PO SCH (09:00)
[2018-04-20] MEDS ORDERED: DOXY100T2 PO (11:20)
[2018-04-20] MEDS ORDERED: PRED10TA22 PO (11:20)
--- NOTE | 2018-04-20 11:21 | Discharge Summary-Hospitalist ---
Diagnosis/Chief Complaint Date of Admission Apr 19, 2018 at 00:01 Date of Discharge Discharge Date: Apr 20, 2018 Discharge Diagnosis (1) Respiratory insufficiency Status: Acute (2) Poor prognosis Status: Chronic (3) IDDM (insulin dependent diabetes mellitus) Status: Chronic (4) COPD (chronic obstructive pulmonary disease) Onset Date: 09/04/2014 Status: Acute (5) HTN (hypertension) Status: Chronic (6) Non-compliance Status: Acute (7) Parkinson disease Status: Chronic Discharge Summary Discharge Physical Exam Allergies: Coded Allergies: No Known Drug Allergies (Verified , 09/13/09) Vitals & I&Os Vital Signs Date Time Temp Pulse Resp B/P (MAP) Pulse Ox O2 Delivery O2 Flow Rate FiO2 04/20/18 11:46 96 20 155/65 95 Nasal Cannula 4.00 04/20/18 10:00 98.0 04/19/18 02:06 96 General Appearance: Alert, Oriented X3, Cooperative Respiratory: Clear to Auscultation, Other (diminished breath sounds noted) Neuro: Normal Gait, Normal Speech, Strength at 5/5 X4 Ext Psych/Mental Status: Mental Status NL, Mood NL Hospital Course Hospital course: Patient had a short hospital course he was admitted for shortness of breath given IV steroids nebulizer treatments and oxygen and improved immensely but needed close monitoring for any type or rebound. He was eager to be discharged and go home since he has all his oxygen and nebulizer treatments applies at home feels like he will do better at home rather than be in the hospital. Bowels had not moved at time of discharge but he will go home and eat prunes. Antibiotic to doxycycline and prednisone regimen was sent into [facility] pharmacy. Overall prognosis is poor considering the severity of his COPD and comorbidities but will try to support this patient anyway possible. Labs (last 24 hrs) Laboratory Tests 04/19/18 15:37: Glucometer 409*H 04/19/18 20:04: Glucometer 320H 04/20/18 06:02: Glucometer 250H 04/20/18 11:02: Glucometer 291H Microbiology 04/19/18 Blood Culture - Preliminary, Resulted No growth Patient resulted labs reviewed. Pending Labs Laboratory Tests 04/20/18 06:02: Glucometer 250 04/20/18 11:02: Glucometer 291 Discussion & Recommendations Discharge Planning: <30 minutes discharge planning Discharge Home Medications: Active Scripts Active Prednisone 10 Mg Tab.ds.pk 10 Mg PO DAILY Take 6 tabs(60mg)daily,decrease by 1 tab(10mg)every other day. Doxycycline Hyclate 100 Mg Tablet 100 Mg PO BID@ Reported Ropinirole HCl 2 Mg Tablet 2 Mg PO BID PRN Carbidopa-Levo ER 50-200 Tab (Carbidopa/Levodopa) 1 Each Tablet.er 1 Tab PO DAILY LAST FILLED #60 01-11-18 Metformin HCl ER (Metformin HCl) 500 Mg Tab.er.24h 500 Mg PO DAILY Atorvastatin Calcium 40 Mg Tablet 40 Mg PO DAILY Diclofenac Sodium 100 Gm Gel..gram. TOP QID PRN Levemir Flextouch (Insulin Detemir) 100 Unit/1 Ml Insuln.pen 40 Units SC HS Symbicort 160-4.5 Mcg Inhaler (Budesonide/Formoterol Fumarate) 10.2 Gm Hfa.aer.ad 2 Puff IH BID PRN Albuterol Sulfate 2.5 Mg/3 Ml Vial.neb 2.5 Mg NEB Q4H PRN Pantoprazole Sodium 40 Mg Tablet.dr 40 Mg PO DAILY Fluorouracil 40 Gm Cream..g. TOP BID Latanoprost 2.5 Ml Drops 1 Drop OS HS Ropinirole HCl 2 Mg Tablet 2 Mg PO HS Tylenol Extra Strength (Acetaminophen) 500 Mg Tablet 1,000 Mg PO Q6H PRN TAKES 2 (500MG) TABLETS Amlodipine Besylate 5 Mg Tablet 5 Mg PO DAILY Clopidogrel (Clopidogrel Bisulfate) 75 Mg Tablet 75 Mg PO DAILY Isosorbide Mononitrate ER (Isosorbide Mononitrate) 30 Mg Tab.er.24h 30 Mg PO DAILY Losartan Potassium 100 Mg Tablet 100 Mg PO DAILY Aspir 81 (Aspirin) 81 Mg Tablet.dr 81 Mg PO DAILY Ventolin Hfa (Albuterol Sulfate) 18 Gm Hfa.aer.ad 2 Puff INH Q6H PRN Instructions to patient/family Please see electronic discharge instructions given to patient. Clinical Quality Measures DVT/VTE Risk/Contraindication: Risk Factor Score Per Nursin RFS Level Per Nursing on Admit: 2=Moderate Problem Qualifiers (1) COPD (chronic obstructive pulmonary disease): COPD type: chronic bronchitis Chronic bronchitis type: unspecified Qualified Codes: J42 - Unspecified chronic bronchitis (2) HTN (hypertension): Hypertension type: essential hypertension Qualified Codes: I10 - Essential ( primary) hypertension ENRIQUE DUNN DO Apr 20, 2018 11:21
[2018-04-20 11:46] VITALS: BP 155/65
== END 2018-04-20 11:46 | disposition home or self-care (01) ==
LOC: EDUNIT# 23:01 → ER 23:03 → 4TH 23:04 → UNDOADMIN 04-19 00:01 → 4TH 04-19 00:01 → UNDODISIN 04-20 11:53
PROVIDERS: ADMIT Family Medicine; ATTEND Family Medicine
DX: J43.9 Emphysema, unspecified (principal); N28.9 Disorder of kidney and ureter, unspecified; I25.10 Atherosclerotic heart disease of native coronary artery without angina pectoris; G47.30 Sleep apnea, unspecified; E78.00 Pure hypercholesterolemia, unspecified; I10 Essential (primary) hypertension; K52.9 Noninfective gastroenteritis and colitis, unspecified; E11.9 Type 2 diabetes mellitus without complications; H91.90 Unspecified hearing loss, unspecified ear; L40.9 Psoriasis, unspecified; L57.0 Actinic keratosis; G20 Parkinson's disease; G25.81 Restless legs syndrome; I25.2 Old myocardial infarction; Z95.5 Presence of coronary angioplasty implant and graft; Z99.81 Dependence on supplemental oxygen; Z87.891 Personal history of nicotine dependence; Z91.19 Patient's noncompliance with other medical treatment and regimen; Z85.828 Personal history of other malignant neoplasm of skin; Z79.4 Long term (current) use of insulin
CPT/HCPCS: 36415; 71045; 80053; 80061; 82962; 83605; 83735; 83874; 83880; 84484; 85007; 85025; 85027; 85610; 85730; 87040; 93005; 93041; 94640; 94664; 94760; 96365; 96375; G0378

== ENCOUNTER 2018-04-20 22:35 | Emergency (ER) | payer MEDICARE ==
[~2018-04-20] VITALS: Ht 182.9 cm; Wt 99.1 kg
[~2018-04-20 22:35] MED LIST changes: +ALBU2.5V4 NEB; +ATOR40TA70 PO; +BUDE10.2 IH; +CARB1TAB41 PO; +DICL100G31 TOP; +DOXY100T2 PO; +FLUO40CR8 TOP; +LATA2.5D5 OS; +METF500T8 PO; +PANT40TA3 PO; +ROPI2TAB4 PO
[2018-04-20] MEDS ORDERED: RT-ALBUTEROL SULF 2.5 MG/3 ML PRE-MIX VIAL INH STA (22:38)
[2018-04-20] MEDS ORDERED: RT-ALBUTEROL/IPRATROPIUM 3 ML (DUONEB) VIAL INH ONE (22:45)
--- NOTE | 2018-04-20 22:47 | ED Respiratory ---
General Stated Complaint: SOA Source: patient Exam Limitations: no limitations History of Present Illness Date Seen by Provider: Apr 20, 2018 Time Seen by Provider: 22:35 Initial Comments Patient presents to the ER by private conveyance with a chief complaint that about 10:00 tonight he would lay down and he started getting very short of breath working hard to breathe. He says he was just in here in the ER , 2 days ago and was released from the hospital today on prednisone, antibiotics and breathing treatments and he said he felt very good however this evening he started feeling poorly again and couldn't catch his breath surgeon said come back to the ER. He is having no chest pain at any time during this episode. Is not any nausea fevers chills or productive cough. This is the same way he felt when he came to the ER last time. PT ALSO HAS HISTORY OF CAD AND HAS HAD 3 UT'S AND 5 STENTS 05/2016--WAS TOLD THAT HE HAD MORE BLOCKAGES, BUT HE WAS NOT A CANDIDATE FOR BYPASS SURGERY DUE TO POOR LUNG FUNCTION Allergies and Home Medications Allergies Coded Allergies: No Known Drug Allergies (Verified , 09/13/09) Home Medications Acetaminophen 500 Mg Tablet, 1,000 MG PO Q6H PRN for PAIN-MILD, (Reported) TAKES 2 (500MG) TABLETS Albuterol Sulfate 18 Gm Hfa.aer.ad, 2 PUFF INH Q6H PRN for SHORTNESS OF BREATH, (Reported) Albuterol Sulfate 2.5 Mg/3 Ml Vial.neb, 2.5 MG NEB Q4H PRN for SHORTNESS OF BREATH, (Reported) Amlodipine Besylate 5 Mg Tablet, 5 MG PO DAILY, (Reported) Aspirin 81 Mg Tablet.dr, 81 MG PO DAILY, (Reported) Atorvastatin Calcium 40 Mg Tablet, 40 MG PO DAILY, (Reported) Budesonide/Formoterol Fumarate 10.2 Gm Hfa.aer.ad, 2 PUFF IH BID PRN for SHORTNESS OF BREATH, (Reported) Carbidopa/Levodopa 1 Each Tablet.er, 1 TAB PO DAILY, (Reported) LAST FILLED #60 01-11-18 Clopidogrel Bisulfate 75 Mg Tablet, 75 MG PO DAILY, (Reported) Diclofenac Sodium 100 Gm Gel..gram., TOP QID PRN for JOINT PAIN, (Reported) Doxycycline Hyclate 100 Mg Tablet, 100 MG PO BID@07,17 Prescribed by: ENRIQUE DUNN on 04/20/18 1120 Fluorouracil 40 Gm Cream..g., TOP BID, (Reported) Insulin Detemir 100 Unit/1 Ml Insuln.pen, 40 UNITS SC HS, (Reported) Isosorbide Mononitrate 30 Mg Tab.er.24h, 30 MG PO DAILY, (Reported) Latanoprost 2.5 Ml Drops, 1 DROP OS HS, (Reported) Losartan Potassium 100 Mg Tablet, 100 MG PO DAILY, (Reported) Metformin HCl 500 Mg Tab.er.24h, 500 MG PO DAILY, (Reported) Pantoprazole Sodium 40 Mg Tablet.dr, 40 MG PO DAILY, (Reported) Prednisone 10 Mg Tab.ds.pk, 10 MG PO DAILY Take 6 tabs(60mg)daily,decrease by 1 tab(10mg)every other day. Prescribed by: ENRIQUE DUNN on 04/20/18 1120 Ropinirole HCl 2 Mg Tablet, 2 MG PO HS, (Reported) Ropinirole HCl 2 Mg Tablet, 2 MG PO BID PRN for RESTLESS LEGS, (Reported) Patient Home Medication List Home Medication List Reviewed: Yes Review of Systems Constitutional: No chills, No fever, No malaise, No weakness EENTM: No ear discharge, No ear pain Respiratory: No cough; short of breath, wheezing Cardiovascular: No chest pain, No palpitations Gastrointestinal: No abdominal pain, No constipation, No diarrhea Genitourinary: No decreased output, No discharge Past Hcccbwa-Pcozgj-Euhcbz Hx Patient Social History Alcohol Use: Occasionally Uses Alcohol Beverage of Choice: Beer Recreational Drug Use: No Smoking Status: Former Smoker Type Used: Cigars Former Smoker, Quit: May 25, 1996 2nd Hand Smoke Exposure: Yes Recent Hopitalizations: No Immunizations Up To Date Tetanus Booster (TDap): More than 5yrs PED Vaccines UTD: Yes Date of Pneumonia Vaccine: Jun 27, 2017 Date of Influenza Vaccine: Jun 27, 2017 Seasonal Allergies Seasonal Allergies: Yes Past Medical History Surgeries: No Cardiac, Coronary Stent, Eye Surgery, Orthopedic Respiratory: Yes COPD Currently Using CPAP: Yes Currently Using BIPAP: No Cardiac: Yes (stents x5) Coronary Artery Disease, Heart Attack, High Cholesterol, Hypertension Neurological: No Reproductive Disorders: No Sexually Transmitted Disease: No HIV/AIDS: No Genitourinary: No Gastrointestinal: No Chronic Diarrhea Musculoskeletal: No Fractures Endocrine: Yes Diabetes, Insulin dep HEENT: No Cataract Loss of Vision: Denies Hearing Impairment: Hard of Hearing Cancer: Yes Skin Did You Recieve Any Treatments: Yes What Type of Treatment Did You: Surgical Intervention Psychosocial: No Integumentary: Yes Eczema Blood Disorders: No Adverse Reaction/Blood Tranf: No Family Medical History Cancer 09 BROTHER Cancer of colon 09 BROTHER Cataract 03 MOTHER Chest pain 03 MOTHER Congenital heart disease 03 FATHER Congestive heart failure 03 FATHER Family history: Cardiovascular disease 03 FATHER 03 MOTHER Family history: Diabetes mellitus 03 FATHER Family history: Gastrointestinal disease 03 MOTHER Family history: Hypertension 03 MOTHER Hearing loss 03 FATHER Heart disease 03 FATHER History of - respiratory disease 03 FATHER Kidney disease 03 FATHER Myocardial infarction 03 FATHER Stroke 03 FATHER No Family History of: Abdominal aortic aneurysm Jae's disease Alcoholism Aphasia Cystic fibrosis Dementia Dysphagia Family history: Allergy Family history: Alzheimer's disease Family history: Arthritis Family history: Asthma Family history: Breast disease Family history: Coronary thrombosis Family history: Glaucoma Family history: Osteoporosis Family history: Thyroid disorder Headache Hereditary disease History of - anemia History of - disorder History of drug abuse Human immunodeficiency virus (HIV) seropositivity Hypercholesterolemia Infertile Malignant neoplasm of lung Parkinson's disease Prostate cancer Psychotic disorder Seizure disorder Tuberculosis Visual impairment Physical Exam Vital Signs - First Documented 04/20/18 22:47 Pulse Ox 94 O2 Delivery Nasal Cannula O2 Flow Rate 4.00 Capillary Refill : Height: 6'0.00" Weight: 218lbs. 8.0oz. 99.670152ew; 29.6 BMI Method:Stated General Appearance: WD/WN, no apparent distress Eyes: Bilateral Eye Normal Inspection, Bilateral Eye PERRL, Bilateral Eye EOMI HEENT: PERRL/EOMI, TMs normal, pharynx normal Neck: non-tender, normal inspection Respiratory: chest non-tender, respiratory distress (moderate), decreased breath sounds, accessory muscle use, wheezing Cardiovascular: normal peripheral pulses, regular rate, rhythm, no edema Gastrointestinal: normal bowel sounds, non tender, soft Extremities: normal inspection, no pedal edema, normal capillary refill Neurologic/Psychiatric: alert, normal mood/affect, oriented x 3 Skin: normal color, warm/dry Progress/Results/Core Measures Suspected Sepsis SIRS Temperature: Pulse: Respiratory Rate: Laboratory Tests 04/20/18 22:49: White Blood Count 14.5H Blood Pressure / Mean: Laboratory Tests 04/20/18 22:49: Creatinine 1.73H, Platelet Count 225, Total Bilirubin 0.4 Results/Orders Lab Results Laboratory Tests Test 04/20/18 22:49 04/20/18 23:00 Range/Units White Blood Count 14.5 H 4.3-11.0 10^3/uL Red Blood Count 3.84 L 4.35-5.85 10^6/uL Hemoglobin 11.7 L 13.3-17.7 G/DL Hematocrit 34 L 40-54 % Mean Corpuscular Volume 89 80-99 FL Mean Corpuscular Hemoglobin 31 25-34 PG Mean Corpuscular Hemoglobin Concent 34 32-36 G/DL Red Cell Distribution Width 13.7 10.0-14.5 % Platelet Count 225 130-400 10^3/uL Mean Platelet Volume 9.7 7.4-10.4 FL Neutrophils (%) (Auto) 91 H 42-75 % Lymphocytes (%) (Auto) 3 L 12-44 % Monocytes (%) (Auto) 6 0-12 % Eosinophils (%) (Auto) 0 0-10 % Basophils (%) (Auto) 0 0-10 % Neutrophils # (Auto) 13.2 H 1.8-7.8 X 10^3 Lymphocytes # (Auto) 0.5 L 1.0-4.0 X 10^3 Monocytes # (Auto) 0.8 0.0-1.0 X 10^3 Eosinophils # (Auto) 0.0 0.0-0.3 10^3/uL Basophils # (Auto) 0.0 0.0-0.1 10^3/uL Neutrophils % (Manual) 94 % Lymphocytes % (Manual) 2 % Monocytes % (Manual) 4 % Eosinophils % (Manual) 0 % Basophils % (Manual) 0 % Band Neutrophils 0 % Blood Morphology Comment NORMAL Sodium Level 136 135-145 MMOL/L Potassium Level 4.2 3.6-5.0 MMOL/L Chloride Level 102 98-107 MMOL/L Carbon Dioxide Level 19 L 21-32 MMOL/L Anion Gap 15 H 5-14 MMOL/L Blood Urea Nitrogen 42 H 7-18 MG/DL Creatinine 1.73 H 0.60-1.30 MG/DL Estimat Glomerular Filtration Rate 39 BUN/Creatinine Ratio 24 Glucose Level 387 H 70-105 MG/DL Calcium Level 9.4 8.5-10.1 MG/DL Magnesium Level 2.5 H 1.8-2.4 MG/DL Total Bilirubin 0.4 0.1-1.0 MG/DL Aspartate Amino Transf (AST/SGOT) 19 5-34 U/L Alanine Aminotransferase (ALT/SGPT) 16 0-55 U/L Alkaline Phosphatase 57 40-136 U/L C-Reactive Protein High Sensitivity 0.30 0.00-0.50 MG/DL Total Protein 7.1 6.4-8.2 GM/DL Albumin 4.6 H 3.2-4.5 GM/DL Blood Gas Puncture Site LEFT RADIAL Blood Gas Patient Temperature 98.3 Arterial Blood pH 7.35 L 7.37-7.43 Arterial Blood Partial Pressure CO2 37 35-45 MMHG Arterial Blood Partial Pressure O2 97 H 79-93 MMHG Arterial Blood HCO3 20 L 23-27 MMOL/L Arterial Blood Total CO2 21.5 21.0-31.0 MMOL/L Arterial Blood Oxygen Saturation 98 94-100 % Arterial Blood Base Excess -4.2 L -2.5-2.5 MMOL/L Ahsan Test YES-POS Blood Gas Ventilator Setting NO Blood Gas Inspired Oxygen 6L My Orders Orders - JOSE KATZ Chest Pa/Lat (2 View) (04/20/18 22:38) Albuterol Pre-Mix Nebs (Rt) (Proventil (04/20/18 22:38) Albuterol/Ipra Inhalation Soln (Duoneb I (04/20/18 22:45) Saline Lock/Iv-Start (04/20/18 22:38) Arterial Blood Gas (04/20/18 22:38) Cbc With Automated Diff (04/20/18 22:38) Comprehensive Metabolic Panel (04/20/18 22:38) Hs C Reactive Protein (04/20/18 22:38) Magnesium (04/20/18 22:38) Svn Small Volume Nebulizer (04/20/18 22:38) Svn Small Volume Nebulizer (04/20/18 22:38) Methylprednisolone Sod Succ (Solu-Medrol (04/20/18 23:00) Manual Differential (04/20/18 22:49) Chest 1 View, Ap/Pa Only (04/20/18 23:18) Medications Given in ED Current Medications Medications Dose Ordered Sig/Regino Route Start Time Stop Time Status Last Admin Dose Admin Albuterol/ Ipratropium 3 ml ONCE ONCE INH 04/20/18 22:45 04/20/18 22:46 DC 04/20/18 22:46 3 ML Methylprednisolone Sodium Succinate 62.5 mg ONCE ONCE IVP 04/20/18 23:00 04/20/18 23:01 DC 04/20/18 22:54 62.5 MG Vital Signs/I&O 04/20/18 22:47 Pulse Ox 94 O2 Delivery Nasal Cannula O2 Flow Rate 4.00 Capillary Refill : Progress Note #1: Time: 22:46 Progress Note Similar presentation to his last COPD exacerbation with very tight sounding lung sounds. He is very winded just walking from the lobby into the room. He is doing better as he sits on oxygen. He was tripoding or giving his history. Start with a DuoNeb and an extra dose of 2.5 mg albuterol and see how that proves his function. We'll also get an ABG, basic set of labs and a 2 view x- ray. We'll give him 40 mg of Solu-Medrol IV. Progress Note #2: Time: 23:21 Progress Note After a modest dose of 2.5 mg albuterol and DuoNeb the patient's breathing has improved significantly. He is no longer as tight and his wheezing is gone. We discussed what he is using at home and he is not appropriately implementing his medicines at all which is probably kasper he decompensated after leaving the hospital. He apparently is completely out of all 3 [place]'s of albuterol that he has with him and is not wearing his oxygen all being mobile. He is however using his purple disc Advair for rescue inhaler with minimal improvement. He says he has albuterol by nebulizer at home but no other albuterol inhalers. We' ll give him an albuterol inhaler and another spacer to go home with we've done some teaching and instructed appropriate use of the Advair, Spiriva, and Ventolin. I had him do teach back and at this point I feel fairly convinced that he will do better tonight. He wants to go home so we'll support that with some more teaching by RT and written instructions. He has a scheduled appointment with Dr. Barakat Sunday in 2 days. Diagnostic Imaging Diagonstic Imaging: Xray Plain Films/CT/US/NM/MRI: chest (1v) Comments No acute cardiopulmonary processes noted. COPD with air trapping but no acute infiltrate. Reviewed: Reviewed by Me Departure Impression Primary Impression: COPD (chronic obstructive pulmonary disease) Qualified Codes: J44.1 - Chronic obstructive pulmonary disease with (acute) exacerbation Disposition: HOME, SELF-CARE Condition: Improved Departure-Patient Inst. Decision time for Depature: 23:23 Referrals: YVETTE BARAKAT DO (PCP/Family) Primary Care Physician Patient Instructions: Chronic Obstructive Pulmonary Disease (COPD), Including Emphysema Add. Discharge Instructions: Every 2 hours you may take the albuterol/Ventolin canister and take 2 puffs through the spacer as needed if you're having wheezing or shortness of breath. If you run out of the albuterol/Ventolin then you can use one of the albuterol or DuoNeb vials by nebulizer machine that makes the mist. If you have to use more than 2 or 3 in a row and still not getting improvement then you should return to the ER. If you're using several throughout the day then you should follow up with your doctor sooner. Keep your scheduled appointment on Sunday with Dr. Barakat. Continue to use the propofol disc Advair twice a day as prescribed. Continue to use the Spiriva as prescribed. Continue using the prednisone as prescribed. Copy Copies To 1: YVETTE BARAKAT TITUS J Apr 20, 2018 22:47
[2018-04-20 22:56] LABS: BASOPHILS % (AUTO) 0 % (0-10); EOSINOPHILS % (AUTO) 0 % (0-10); HEMATOCRIT 34 % (40-54); HEMOGLOBIN 11.7 G/DL (13.3-17.7); LYMPHOCYTES # (AUTO) 0.5 X 10^3 (1.0-4.0); LYMPHOCYTES % (AUTO) 3 % (12-44); MEAN CORPUSCULAR HEMOGLOBIN 31 PG (25-34); MEAN CORPUSCULAR HGB CONC 34 G/DL (32-36); MEAN CORPUSCULAR VOLUME 89 FL (80-99); MEAN PLATELET VOLUME 9.7 FL (7.4-10.4); MONOCYTES # (AUTO) 0.8 X 10^3 (0.0-1.0); MONOCYTES % (AUTO) 6 % (0-12); NEUTROPHILS # (AUTO) 13.2 X 10^3 (1.8-7.8); NEUTROPHILS % (AUTO) 91 % (42-75); PLATELET COUNT 225 10^3/uL (130-400); RED BLOOD COUNT 3.84 10^6/uL (4.35-5.85); RED CELL DISTRIBUTION WIDTH 13.7 % (10.0-14.5); WHITE BLOOD COUNT 14.5 10^3/uL (4.3-11.0)
[2018-04-20] MEDS ORDERED: methylPREDNISolone 125 MG (Solu-MEDROL) VIAL IVP ONE (23:00)
[2018-04-20 23:09] LABS: BAND NEUTROPHILS 0 %; NEUTROPHILS % (MANUAL) 94 %
[2018-04-20 23:10] LABS: BASOPHILS % (MANUAL) 0 %; EOSINOPHILS % (MANUAL) 0 %; LYMPHOCYTES % (MANUAL) 2 %; MONOCYTES % (MANUAL) 4 %; RBC MORPH NORMAL
[2018-04-20 23:11] LABS: ABG BASE EXCESS -4.2 MMOL/L (-2.5-2.5); ABG OXYGEN SATURATION 98 % (94-100); ABG PCO2 37 MMHG (35-45); ABG PH 7.35 (7.37-7.43); ABG PO2 97 MMHG (79-93); ABG TCO2 21.5 MMOL/L (21.0-31.0)
[2018-04-20 23:12] LABS: ALLENS TEST YES-POS; INSPIRED O2 6L; PATIENT TEMP 98.3; VENTILATOR NO
[2018-04-20 23:16] LABS: ALBUMIN 4.6 GM/DL (3.2-4.5); BILIRUBIN,TOTAL 0.4 MG/DL (0.1-1.0); CALCIUM 9.4 MG/DL (8.5-10.1); CREATININE SERUM 1.73 MG/DL (0.60-1.30); MAGNESIUM 2.5 MG/DL (1.8-2.4); POTASSIUM 4.2 MMOL/L (3.6-5.0); TOTAL PROTEIN 7.1 GM/DL (6.4-8.2)
[2018-04-20] MEDS ORDERED: RX-ALBUTEROL INHALER (PROAIR) 8 GM IH ONE (23:18)
[2018-04-20] MEDS ORDERED: RX-ALBUTEROL INHALER (PROAIR) 8 GM IH STA (23:28)
[2018-04-20 23:40] VITALS: BP 137/56
--- NOTE | 2018-04-21 07:21 | Diagnostic Imaging Report ---
INDICATION: Dyspnea Portable AP upright view of the chest was obtained with comparison made to the study of 04/18/2018. Overall heart size and pulmonary vascularity are within normal limits. There is air trapping, bilaterally. There is no evidence of pneumothorax or consolidation. No significant pleural fluid is identified. IMPRESSION: No acute abnormality or significant change is detected. Dictated by: Dictated on workstation # [id number]
== END 2018-04-20 23:41 | disposition home or self-care (01) ==
LOC: EDUNIT# 22:35 → ER 22:37
DX: J44.9 Chronic obstructive pulmonary disease, unspecified (principal); E78.00 Pure hypercholesterolemia, unspecified; I25.10 Atherosclerotic heart disease of native coronary artery without angina pectoris; I25.2 Old myocardial infarction; E11.9 Type 2 diabetes mellitus without complications; Z95.5 Presence of coronary angioplasty implant and graft; Z87.891 Personal history of nicotine dependence; Z79.51 Long term (current) use of inhaled steroids; Z85.828 Personal history of other malignant neoplasm of skin; Z87.19 Personal history of other diseases of the digestive system; Z79.82 Long term (current) use of aspirin; Z80.0 Family history of malignant neoplasm of digestive organs; Z79.52 Long term (current) use of systemic steroids; Z79.4 Long term (current) use of insulin
CPT/HCPCS: 36415; 71045; 80053; 82805; 83735; 85007; 85027; 86141; 94640; 94664; 96374

== ENCOUNTER 2018-04-30 18:48 | Emergency (ER) | payer MEDICARE ==
[~2018-04-30] VITALS: Ht 182.9 cm; Wt 97.1 kg
--- NOTE | 2018-04-30 19:44 | ED EENT ---
History of Present Illness General Chief Complaint: Oral/Throat Problems Stated Complaint: SORE THROAT Source: patient Exam Limitations: no limitations History of Present Illness Date Seen by Provider: Apr 30, 2018 Time Seen by Provider: 19:38 Initial Comments To ER with a sore throat and sore tongue with painful swallowing of 2 weeks duration. He denies fevers or chills. He has COPD and just finished a steroid burst yesterday. He's also been on nystatin swish and swallow 4 times daily and has been on this for about 6 days and is still on it. His last day will be either today or tomorrow. He just finished doxycycline a few days ago as well for COPD exacerbation. Timing/Duration: abrupt Severity: moderate Associated Symptoms: sore throat Allergies and Home Medications Allergies Coded Allergies: No Known Drug Allergies (Verified , 09/13/09) Home Medications Acetaminophen 500 Mg Tablet, 1,000 MG PO Q6H PRN for PAIN-MILD, (Reported) TAKES 2 (500MG) TABLETS Albuterol Sulfate 18 Gm Hfa.aer.ad, 2 PUFF INH Q6H PRN for SHORTNESS OF BREATH, (Reported) Albuterol Sulfate 2.5 Mg/3 Ml Vial.neb, 2.5 MG NEB Q4H PRN for SHORTNESS OF BREATH, (Reported) Amlodipine Besylate 5 Mg Tablet, 5 MG PO DAILY, (Reported) Aspirin 81 Mg Tablet.dr, 81 MG PO DAILY, (Reported) Atorvastatin Calcium 40 Mg Tablet, 40 MG PO DAILY, (Reported) Budesonide/Formoterol Fumarate 10.2 Gm Hfa.aer.ad, 2 PUFF IH BID PRN for SHORTNESS OF BREATH, (Reported) Carbidopa/Levodopa 1 Each Tablet.er, 1 TAB PO DAILY, (Reported) LAST FILLED #60 01-11-18 Clopidogrel Bisulfate 75 Mg Tablet, 75 MG PO DAILY, (Reported) Diclofenac Sodium 100 Gm Gel..gram., TOP QID PRN for JOINT PAIN, (Reported) Doxycycline Hyclate 100 Mg Tablet, 100 MG PO BID@,17 Prescribed by: ENRIQUE DUNN on 04/20/18 1120 Fluorouracil 40 Gm Cream..g., TOP BID, (Reported) Insulin Detemir 100 Unit/1 Ml Insuln.pen, 40 UNITS SC HS, (Reported) Isosorbide Mononitrate 30 Mg Tab.er.24h, 30 MG PO DAILY, (Reported) Latanoprost 2.5 Ml Drops, 1 DROP OS HS, (Reported) Losartan Potassium 100 Mg Tablet, 100 MG PO DAILY, (Reported) Metformin HCl 500 Mg Tab.er.24h, 500 MG PO DAILY, (Reported) Pantoprazole Sodium 40 Mg Tablet.dr, 40 MG PO DAILY, (Reported) Prednisone 10 Mg Tab.ds.pk, 10 MG PO DAILY Take 6 tabs(60mg)daily,decrease by 1 tab(10mg)every other day. Prescribed by: ENRIQUE DUNN on 04/20/18 1120 Ropinirole HCl 2 Mg Tablet, 2 MG PO HS, (Reported) Ropinirole HCl 2 Mg Tablet, 2 MG PO BID PRN for RESTLESS LEGS, (Reported) Patient Home Medication List Home Medication List Reviewed: Yes Review of Systems Constitutional: see HPI Eyes: No Symptoms Reported Ears: No Symptoms Reported Nose: no symptoms reported Mouth: no symptoms reported Throat: no symptoms reported Respiratory: cough (chronic) Cardiovascular: no symptoms reported Musculoskeletal: no symptoms reported Skin: no symptoms reported Neurological: No Symptoms Reported Hematologic/Lymphatic: No Symptoms Reported Past [id number]-[id number]-Qwfrpc Hx Patient Social History Alcohol Beverage of Choice: Beer Type Used: Cigars Former Smoker, Quit: May 25, 1996 2nd Hand Smoke Exposure: Yes Recent Hopitalizations: No Immunizations Up To Date Tetanus Booster (TDap): Unknown PED Vaccines UTD: Yes Date of Pneumonia Vaccine: Jun 27, 2017 Date of Influenza Vaccine: Jun 27, 2017 Seasonal Allergies Seasonal Allergies: Yes Past Medical History Surgeries: No Cardiac, Coronary Stent, Eye Surgery, Orthopedic Respiratory: Yes COPD Currently Using CPAP: Yes Currently Using BIPAP: No Cardiac: Yes (stents x5) Coronary Artery Disease, Heart Attack, High Cholesterol, Hypertension Neurological: No Reproductive Disorders: No Sexually Transmitted Disease: No HIV/AIDS: No Genitourinary: No Gastrointestinal: No Chronic Diarrhea Musculoskeletal: No Fractures Endocrine: Yes Diabetes, Insulin dep HEENT: No Cataract Loss of Vision: Denies Hearing Impairment: Hard of Hearing Cancer: Yes Skin Did You Recieve Any Treatments: Yes What Type of Treatment Did You: Surgical Intervention Psychosocial: No Integumentary: Yes Eczema Blood Disorders: No Adverse Reaction/Blood Tranf: No Family Medical History Cancer 09 BROTHER Cancer of colon 09 BROTHER Cataract 03 MOTHER Chest pain 03 MOTHER Congenital heart disease 03 FATHER Congestive heart failure 03 FATHER Family history: Cardiovascular disease 03 FATHER 03 MOTHER Family history: Diabetes mellitus 03 FATHER Family history: Gastrointestinal disease 03 MOTHER Family history: Hypertension 03 MOTHER Hearing loss 03 FATHER Heart disease 03 FATHER History of - respiratory disease 03 FATHER Kidney disease 03 FATHER Myocardial infarction 03 FATHER Stroke 03 FATHER No Family History of: Abdominal aortic aneurysm [place]'s disease Alcoholism Aphasia Cystic fibrosis Dementia Dysphagia Family history: Allergy Family history: Alzheimer's disease Family history: Arthritis Family history: Asthma Family history: Breast disease Family history: Coronary thrombosis Family history: Glaucoma Family history: Osteoporosis Family history: Thyroid disorder Headache Hereditary disease History of - anemia History of - disorder History of drug abuse Human immunodeficiency virus (HIV) seropositivity Hypercholesterolemia Infertile Malignant neoplasm of lung Parkinson's disease Prostate cancer Psychotic disorder Seizure disorder Tuberculosis Visual impairment Physical Exam Height, Weight, BMI Height: 6'0.00" Weight: 218lbs. 8.0oz. [id number]; 29.6 BMI Method:Stated General Appearance: WD/WN, no apparent distress Eyes: bilateral eye normal inspection, bilateral eye PERRL, bilateral eye EOMI Ears: bilateral ear auricle normal, bilateral ear canal normal, bilateral ear TM normal Mouth/Throat: other (erythema of the soft palate pharynx and tongue without whitish discharge. No ulceration. No swelling. No uvular deviation.) Neck: non-tender, full range of motion; No lymphadenopathy (R), No lymphadenopathy (L); other (there is no swelling or induration of the submandibular region, no palpable submandibular lymphadenopathy.) Cardiovascular: regular rate, rhythm, no murmur Respiratory: no respiratory distress, no accessory muscle use, decreased breath sounds, rhonchi Neurologic/Psychiatric: alert, normal mood/affect Skin: normal color, warm/dry Progress/Results/Core Measures Results/Orders My Orders Orders - TATA HERMOSILLO APRN Lidocaine 2% Viscous 15 Ml (Xylocaine Vi (04/30/18 19:45) Fluconazole Tablet (Ed Only) (Diflucan T (04/30/18 19:45) Departure Communication (Admissions) I did spray his tongue and oropharynx with Hurricaine spray. This achieved almost complete and immediate resolution of pain. Impression Primary Impression: Patience infection of mouth Disposition: 01 HOME, SELF-CARE Condition: Stable Departure-Patient Inst. Decision time for Depature: 19:41 Referrals: YVETTE JACKMAN DO (PCP/Family) Primary Care Physician Patient Instructions: Sore Throat in Adults Add. Discharge Instructions: 1. Continue all your current medications as directed. 2. Follow-up with your doctor next week 3. Use the lidocaine jelly on a Q-tip in your mouth a few times daily and certainly before eating. However do not use this more than 6 or 8 times a day and only enough to cover the sponge on the end of the stick.. Copy Copies To 1: YVETTE JACKMAN PETER J APRN Apr 30, 2018 19:44
[2018-04-30] MEDS ORDERED: FLUCONAZOLE 150 MG TABLET (ED ONLY) PO ONE (19:45)
[2018-04-30] MEDS ORDERED: LIDOCAINE 2% VISCOUS 15 ML UDC PO ONE (19:45)
[2018-04-30 19:56] VITALS: BP 113/85
== END 2018-04-30 19:56 | disposition home or self-care (01) ==
LOC: EDUNIT# 18:48 → ER 18:50
DX: B37.0 Candidal stomatitis (principal); J44.9 Chronic obstructive pulmonary disease, unspecified; I25.10 Atherosclerotic heart disease of native coronary artery without angina pectoris; I25.2 Old myocardial infarction; E78.00 Pure hypercholesterolemia, unspecified; I10 Essential (primary) hypertension; E11.9 Type 2 diabetes mellitus without complications; Z80.0 Family history of malignant neoplasm of digestive organs; Z82.49 Family history of ischemic heart disease and other diseases of the circulatory system; Z85.828 Personal history of other malignant neoplasm of skin; Z87.19 Personal history of other diseases of the digestive system; Z79.51 Long term (current) use of inhaled steroids; Z79.4 Long term (current) use of insulin; Z79.82 Long term (current) use of aspirin; Z87.891 Personal history of nicotine dependence; Z95.5 Presence of coronary angioplasty implant and graft
CPT/HCPCS: 99283

== ENCOUNTER 2018-06-20 12:42 | Outpatient (CLI) | payer MEDICARE ==
[~2018-06-20] VITALS: Ht 182.9 cm; Wt 100.4 kg
[~2018-06-20 12:42] MED LIST changes: -AMLO5TAB2 PO; +AMLO5TAB7 PO; -LOSA100T28 PO; +LOSA100T8 PO; +METF-399 PO; -METF10002 PO; -ROPI4TAB3 PO; +ROPI4TAB5 PO
[2018-06-20] MEDS ORDERED: CITA40TA11 PO (13:00)
[2018-06-20] MEDS ORDERED: GLIM4TAB PO (13:00)
[2018-06-20] MEDS ORDERED: MELO15TA39 PO (13:00)
[2018-06-20] MEDS ORDERED: METF-397 PO (13:00)
[2018-06-20 13:04] VITALS: BP 130/73
== END 2018-06-20 13:42 | disposition home or self-care (01) ==
LOC: PREOP 12:42
PROVIDERS: ATTEND Orthopaedic Surgery
DX: Z01.818 Encounter for other preprocedural examination (principal)
CPT/HCPCS: 87081

== ENCOUNTER 2018-06-26 07:10 | Day surgery (SDC) | payer MEDICARE ==
--- NOTE | 2018-06-18 17:46 | HISTORY AND PHYSICAL ---
DATE OF SERVICE: 06/26/2018 ADMISSION HISTORY AND PHYSICAL DATE OF ADMISSION: 06/26/2018. This will be for date of service and date of surgery on 06/26/2018 for right knee arthroscopy. HISTORY OF PRESENT ILLNESS: The patient is a 77-year-old gentleman with complaints of a stabbing pain on the medial aspect of his right knee. He has undergone injections, which helped for a week. The symptoms continued. He reports medial knee pain. He denies back pain and denies paresthesias. His radiographs do reveal some degenerative changes in his knee joint and he understands this. Arthroscopy will not alleviate his arthritic symptoms, but should help with his mechanical symptoms. Due to functional impairment and failure to improve with conservative measures, the patient elected to proceed with surgical intervention. REVIEW OF SYSTEMS: No chest pain, no shortness of breath and no dysuria. PAST MEDICAL HISTORY: Coronary artery disease, skin cancer, hypertension, COPD, cold sweats, dizziness, diabetes and hypercholesterolemia. PAST SURGICAL HISTORY: Knee, skin cancer and coronary stent placement. FAMILY HISTORY: Congestive heart failure and coronary artery disease. PRIMARY CARE PROVIDER: Dr. Barakat. MEDICATIONS: Atorvastatin, amlodipine, Glucophage, insulin, Nitrostat, isosorbide, iron, NovoLog, nystatin, pantoprazole, Ventolin, vitamins, carbidopa, tramadol and levofloxacin. ALLERGIES: HYDROCODONE. SOCIAL HISTORY: The patient is a former smoker with an [id number] history. Denies alcohol use. PHYSICAL EXAMINATION: GENERAL: The patient is well developed, well nourished, in no acute distress. HEENT: Normocephalic and atraumatic. Pupils are equal, round and reactive to light. Oropharynx is clear. NECK: Supple, no lymphadenopathy. LUNGS: Clear to auscultation bilaterally. HEART: Regular rate and rhythm. ABDOMEN: Soft, nontender and nondistended. EXTREMITIES: The right knee demonstrates marked tenderness along his medial joint line. There is a slight effusion. He has pain medially with Viridiana's. Negative straight leg raise. Range of motion is 0/2/130 with no varus valgus laxity, negative anterior and posterior drawer. The patient ambulates with a normal heel-to-toe gait. 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 PLAN: Right knee arthroscopy with partial meniscectomy and chondroplasty. The risks, benefits, options, ramifications and recovery were discussed at length with the patient. He understands and wished to proceed. Job ID: [id number] DocumentID: [id number] Dictated Date: 06/17/2018 11:28:52 Brick Setter Operator Date: 06/17/2018 11:57:40 Dictated By: SAMUEL THOMPSON MD
[~2018-06-26] VITALS: Ht 182.9 cm; Wt 100.4 kg
[2018-06-26 07:10] VITALS: BP 149/66
[~2018-06-26 07:10] MED LIST changes: +GLIM4TAB PO; +MELO15TA39 PO; +METF-397 PO
--- NOTE | 2018-06-26 07:26 | Progress Note-Pre Operative ---
Pre-Operative Progress Note H&P Reviewed The H&P was reviewed, patient examined and no changes noted. Date Seen by Provider: Jun 26, 2018 Time Seen by Provider: 07: Date H&P Reviewed: Jun 26, 2018 Time H&P Reviewed: 07: Pre-Operative Diagnosis: right medial meniscus tear and chondromalacia SAMUEL THOMPSON MD Jun 26, 2018 07:26
--- NOTE | 2018-06-26 07:27 | Progress Note-Post Operative ---
Post-Operative Progess Note Surgeon (s)/Senior Designer/Art Director (s) Surgeon SAMUEL THOMPSON MD Senior Designer/Art Director: Cale Newman Pre-Operative Diagnosis right medial meniscus tear and chondromalacia Post-Operative Diagnosis right medial and lateral meniscus tears and chondromalacia of the medial femoral condyle, lateral tibial plateau, patella and trochlea Procedure & Operative Findings Date of Procedure 06/26/18 Procedure Performed/Findings right knee arthroscopic partial medial and lateral meniscectomies and chondroplasty of the medial femoral condyle, lateral tibial plateau, patella and trochlea Anesthesia Type spinal Estimated Blood Loss Estimated blood loss (mL): minimal Specimens/Packing Specimens Removed none Packing: none SAMUEL THOMPSON MD Jun 26, 2018 07:27
[2018-06-26] MEDS ORDERED: oxyCODONE/APAP 5/325MG (PERCOCET 5) TABLET PO PRN (07:30)
[2018-06-26] MEDS ORDERED: LACTATED RINGERS 1,000 ML IV PRN (07:47)
[2018-06-26] MEDS ORDERED: ceFAZolin INJECTION 1,000 MG in NS (IVPB) 50 ML IV ONE (08:00)
[2018-06-26] MEDS ORDERED: FAMOTIDINE 20MG/2ML IV (PEPCID) IV ONE (08:00)
[2018-06-26 08:12] LABS: HEMOGLOBIN 12.1 G/DL (13.3-17.7); MEAN PLATELET VOLUME 9.6 FL (7.4-10.4); RED BLOOD COUNT 4.11 10^6/uL (4.35-5.85); RED CELL DISTRIBUTION WIDTH 14.7 % (10.0-14.5); WHITE BLOOD COUNT 5.8 10^3/uL (4.3-11.0)
[2018-06-26] MEDS ORDERED: LIDOCAINE PF 2% 2 ML (XYLOCAINE) VIAL ONE ×2 (08:14→09:13)
[2018-06-26] MEDS ORDERED: BUPIVACAINE SPINAL 0.75% (SENSORCAINE) 2 ML AMP ONE (08:14)
[2018-06-26] MEDS ORDERED: MIDAZOLAM 2 MG/2 ML (VERSED) VIAL ONE (08:20)
[2018-06-26] MEDS ORDERED: proPOfol 200 MG/20 ML (DIPRIVAN) VIAL IV ONE ×2 (08:20→09:41)
[2018-06-26] MEDS: LACTATED RINGERS 1,000 ML IV PRN ×2 (08:21→09:20)
[2018-06-26] MEDS ORDERED: BUPIVACAINE 0.5% 30 ML (SENSORCAINE) VIAL ONE (08:35)
[2018-06-26] MEDS ORDERED: morphine PF (DURAMORPH) 10 MG/10 ML AMP ONE (08:35)
[2018-06-26 10:50] VITALS: BP 129/52
[2018-06-26] MEDS ORDERED: OXYC-471 PO (11:02)
--- NOTE | 2018-06-26 11:03 | OPERATIVE REPORT ---
DATE OF SERVICE: 06/26/2018 PREOPERATIVE DIAGNOSES: 1. Right knee medial meniscal tear. 2. Right knee chondromalacia of the medial femoral condyle. 3. Right knee chondromalacia of the patella. POSTOPERATIVE DIAGNOSES: 1. Right knee medial meniscal tear. 2. Right knee lateral meniscal tear. 3. Right knee chondromalacia of the medial femoral condyle. 4. Right knee chondromalacia of lateral tibial plateau. 5. Right knee chondromalacia patella. 6. Right knee chondromalacia of the trochlea. PROCEDURES: 1. Right knee arthroscopic partial medial meniscectomy. 2. Right knee arthroscopic partial lateral meniscectomy. 3. Right knee arthroscopic chondroplasty medial femoral condyle. 4. Right knee arthroscopic chondroplasty of the lateral tibial plateau. 5. Right knee arthroscopic chondroplasty of the patella. 6. Right knee arthroscopic chondroplasty of the trochlea. SURGEON: José Miguel Thompson MD. QA ANALYST: Cale Newman, who assisted throughout the procedure and closed the incisions. ANESTHESIA: Spinal anesthesia by Leslie Aguirre CRNA. TOURNIQUET TIME: Not applicable. ESTIMATED BLOOD LOSS: Minimal. DRAINS: None. COMPLICATIONS: None. POSTOPERATIVE PLAN: Routine arthroscopy protocol. The patient was transported to the recovery room awake and in stable condition. STATEMENT OF MEDICAL NECESSITY: The patient is a 77-year-old gentleman who previously undergone right knee arthroscopy reported increasing medial knee pain, catching, swelling and locking. He has undergone treatment with injections without relief. He reported functional impairment and mechanical symptoms and due to failure to improve with conservative measures, the patient elected to proceed with surgical intervention. Examination under anesthesia revealed range of motion 0/2/130 with a negative David, negative anterior and posterior drawer. No varus valgus laxity, negative pivot shift. Arthroscopic findings, the patella demonstrated diffuse grade III chondral loss centrally with surrounding grade II chondral flaps at the periphery. The trochlea demonstrated grade III chondral flap centrally. In a 10 x 10 area there were multiple small loose cartilaginous fragments throughout the knee joint. The ACL and PCL were intact. The medial compartment demonstrated grade IV chondral loss in a 10 x 10 area on the medial aspect of the femoral condyle with surrounding grade III chondral flaps. The medial tibial plateau demonstrated diffuse grade II-III chondral changes with no unstable chondral flaps. The posterior horn and body of the medial meniscus demonstrated a horizontal cleavage tear involving approximately 1/3rd of the remnant of the posterior horn and body. The lateral compartment demonstrated grade III chondral flaps of the central portion of the tibial plateau in an 8 x 10 area and a degenerative tear of the posterior horn of the lateral meniscus from approximately 1/3rd of the posterior horn. DESCRIPTION OF PROCEDURE: After risks and benefits of procedure were discussed and questions were answered and informed consent was signed and placed on the chart. The operative site was confirmed in the preoperative holding area initialed by the surgeon. The patient was then transferred to the operating room. After adequate levels of general endotracheal anesthetic were obtained, a timeout was called confirming the operative site. Examination under anesthesia was performed with the above findings noted. The right lower extremity was prepped and draped in the usual sterile fashion. The knee joint was injected with 60 mL fluid. A standard inferolateral portal was placed with the arthroscope under direct visualization and inferomedial portal was created. The menisci and cruciates were carefully probed with the above findings as noted. Patella and trochlea were debrided with shaver back to a stable edge. Scope was redirected into the lateral compartment and then subchondral flaps of the lateral tibial plateau were debrided with shaver back to a stable edge and the posterior horn of the lateral meniscus was debrided with a biter and shaver removing approximately 1/3rd of the posterior horn. This was carefully probed with no further tearing or instability noted. The scope was then redirected into the medial compartment where the medial meniscus tear was debrided with a biter and shaver removing approximately 1/3rd of the posterior horn and body. This was carefully probed and no further tearing or instability noted. The unstable chondral flaps in the medial femoral condyle were debrided with shaver back to a stable edge. The knee was copiously irrigated to irrigate out the multiple loose bodies. The portal sites were closed with 4-0 nylon in simple interrupted fashion. The knee was injected with Duramorph. The portal sites were infiltrated with plain Marcaine. A soft dressing was applied and the patient was transferred to the recovery room awake and in stable condition. Job ID: [id number] DocumentID: [id number] Dictated Date: 06/26/2018 09:54:21 Bird Tender Date: 06/26/2018 11:03:06 Dictated By: JOSÉ MIGUEL THOMPSON MD
[2018-06-26 11:20] VITALS: BP 134/63
--- NOTE | 2018-06-26 11:36 | Anesthesia-General Post-Op ---
General Patient Condition Mental Status/LOC: Same as Preop Cardiovascular: Satisfactory Nausea/Vomiting: Absent Respiratory: Satisfactory Pain: Controlled Complications: Absent Post Op Complications Complications None Follow Up Care/Instructions Patient Instructions None needed. Anesthesia/Patient Condition Patient Condition Patient is doing well, no complaints, stable vital signs, no apparent adverse anesthesia problems. No complications reported per nursing. [place] [facility] [place] Yes JACLYN WALTERS CRNA Jun 26, 2018 11:36
[2018-06-26] MEDS ORDERED: ONDANSETRON 4 MG/2 ML (SDV) Z0FRAN ONE (11:41)
[2018-06-26] MEDS ORDERED: ONDANSETRON 4 MG/2 ML (SDV) Z0FRAN IVP ONE (11:45)
[2018-06-26 11:50] VITALS: BP 138/69
[2018-06-26 13:00] VITALS: BP 138/69
--- NOTE | 2018-06-26 14:09 | Physical Therapy Ortho Eval ---
PT Orthopedic Evaluation Type of Surgery Knee Scope repair of torn right medial meniscus Prior Level of Function Current Living Status: Spouse Locomotion (Upon Admit): Independent Subjective Subjective Agrees to PT . Anxious to go home. Entry Into Home: Stairs With Railing Motor Control Motor Control: Motor Control WNL ROM ROM: WFL, except focal deficit (right knee flexion) Strength Strength: Gen Weak,No Focal Deficit (right LE grossly 4-/5) Transfer Transfers (B, C, W/C) (FIM): 5 (6 post treatment) Gait Gait Assistive Device: FWW Right Lower Extremity: Right Weight Bearing Status RLE: Weight Bearing/Tolerated Left Lower Extremity: Left Weight Bearing Status LLE: Full Weight Bearing Gait (FIM): 4 (5 post treatment) Distance: 50 ft x 3 reps Summary/Comments safe gait without LOB; legs felt weak due to spinal. up/down curb step x 2 using correct sequence without cues. Treatment Rendered Treatment: Therapeutic Exercises, Gait Train, Step Train Exercise Instruction: Quad Sets, Straight Leg Raise, Heel Slides education in HEP and continuation Plan Treatment Plan: Discharge PT/Family Agrees to Plan: Yes Time Time In: 1215 Time Out: 1245 Total Billed Treatment Time: 30 Billed Treatment Time visit EVM 15 GT 15 PT/OT Therapy GCodes Therapy Functional Limitation: Physical Therapy Test(s)/Tool used to determine: Level of Assistance Scale Functional Limitation-Current Charge Code: MOBCUR Modifier: CJ Functional Limitation-Goal Charge Code: MOBGOAL Modifier: CI Functional Limitation-D/C Charge Codes: MOBDC Modifier: CI KAITY WHITING PT Jun 26, 2018 14:09
== END 2018-06-26 13:00 | disposition home or self-care (01) ==
LOC: SDC 07:10
PROVIDERS: ATTEND Orthopaedic Surgery
DX: M23.8X1 Other internal derangements of right knee (principal); M22.41 Chondromalacia patellae, right knee; I25.10 Atherosclerotic heart disease of native coronary artery without angina pectoris; I10 Essential (primary) hypertension; J44.9 Chronic obstructive pulmonary disease, unspecified; E11.9 Type 2 diabetes mellitus without complications; E78.00 Pure hypercholesterolemia, unspecified; E78.5 Hyperlipidemia, unspecified; G47.33 Obstructive sleep apnea (adult) (pediatric); K21.9 Gastro-esophageal reflux disease without esophagitis; Z85.828 Personal history of other malignant neoplasm of skin; Z95.5 Presence of coronary angioplasty implant and graft; Z79.4 Long term (current) use of insulin; Z79.899 Other long term (current) drug therapy; Z87.891 Personal history of nicotine dependence; Z79.82 Long term (current) use of aspirin
CPT/HCPCS: 36415; 82962; 85027

== ENCOUNTER 2018-07-03 15:56 | Emergency (ER) | payer MEDICARE ==
[~2018-07-03] VITALS: Ht 182.9 cm; Wt 99.8 kg
[~2018-07-03 15:56] MED LIST changes: +OXYC-471 PO
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
[2018-07-03] MEDS ORDERED: TRAM-42 PO (17:25)
[2018-07-03 17:36] VITALS: BP 173/75
== END 2018-07-03 17:44 | disposition home or self-care (01) ==
LOC: EDUNIT# 15:56 → ER 15:57
DX: S42.022A Displaced fracture of shaft of left clavicle, initial encounter for closed fracture (principal); G47.30 Sleep apnea, unspecified; J44.9 Chronic obstructive pulmonary disease, unspecified; I25.10 Atherosclerotic heart disease of native coronary artery without angina pectoris; I25.2 Old myocardial infarction; E78.00 Pure hypercholesterolemia, unspecified; I10 Essential (primary) hypertension; K21.9 Gastro-esophageal reflux disease without esophagitis; R40.2142 Coma scale, eyes open, spontaneous, at arrival to emergency department; R40.2252 Coma scale, best verbal response, oriented, at arrival to emergency department; R40.2362 Coma scale, best motor response, obeys commands, at arrival to emergency department; E11.9 Type 2 diabetes mellitus without complications; F41.9 Anxiety disorder, unspecified; Z80.0 Family history of malignant neoplasm of digestive organs; Z82.49 Family history of ischemic heart disease and other diseases of the circulatory system; Z85.828 Personal history of other malignant neoplasm of skin; Z87.19 Personal history of other diseases of the digestive system; Z79.51 Long term (current) use of inhaled steroids; Z79.82 Long term (current) use of aspirin; Z95.5 Presence of coronary angioplasty implant and graft; Z87.891 Personal history of nicotine dependence; Z79.4 Long term (current) use of insulin; V49.40XA Driver injured in collision with unspecified motor vehicles in traffic accident, initial encounter
CPT/HCPCS: 70450; 71045; 72125; 73000; 73030

== ENCOUNTER → 2018-07-23 | Outpatient (CLI) | payer MEDICARE ==
[~2018-07-23] MED LIST changes: +TRAM-42 PO
--- NOTE | 2018-07-23 08:55 | Diagnostic Imaging Report ---
INDICATION: Fracture. Comparison made with prior examination 07/03/18. FINDINGS: Note is again made of markedly comminuted fracture of the mid left clavicle. Alignment is grossly unchanged compared to prior examination. There is minimal callus formation. There is arthrosis of the acromioclavicular joint. The left lung apex is clear. IMPRESSION: Essentially unchanged alignment of the comminuted fracture of the mid left clavicle. Dictated by: Dictated on workstation # [id number]
== END ==
LOC: RAD 08:30
PROVIDERS: ATTEND Orthopaedic Surgery
DX: S42.025D Nondisplaced fracture of shaft of left clavicle, subsequent encounter for fracture with routine healing (principal)
CPT/HCPCS: 73000

== ENCOUNTER 2018-12-15 06:22 | Inpatient (IN) | payer MEDICARE ==
[~2018-12-15] VITALS: Ht 182.9 cm; Wt 95.6 kg
[~2018-12-15 06:22] MED LIST changes: -AMLO5TAB7 PO; +AMLO5TAB9 PO; -GABA600T2 PO; +GBPN600T PO; +LOSA100T57 PO; -LOSA100T8 PO
[2018-12-15] MEDS ORDERED: methylPREDNISolone 125 MG (Solu-MEDROL) VIAL IV STA (06:32)
[2018-12-15] MEDS ORDERED: ONDANSETRON 4 MG/2 ML (SDV) Z0FRAN ONE (06:40)
[2018-12-15 06:43] LABS: BASOPHILS % (AUTO) 1 % (0-10); EOSINOPHILS # (AUTO) 0.3 10^3/uL (0.0-0.3); EOSINOPHILS % (AUTO) 3 % (0-10); HEMATOCRIT 36 % (40-54); HEMOGLOBIN 12.1 G/DL (13.3-17.7); LYMPHOCYTES # (AUTO) 1.2 X 10^3 (1.0-4.0); LYMPHOCYTES % (AUTO) 14 % (12-44); MEAN CORPUSCULAR HEMOGLOBIN 29 PG (25-34); MEAN CORPUSCULAR HGB CONC 34 G/DL (32-36); MEAN CORPUSCULAR VOLUME 87 FL (80-99); MEAN PLATELET VOLUME 9.9 FL (7.4-10.4); MONOCYTES # (AUTO) 0.9 X 10^3 (0.0-1.0); MONOCYTES % (AUTO) 10 % (0-12); NEUTROPHILS # (AUTO) 6.4 X 10^3 (1.8-7.8); NEUTROPHILS % (AUTO) 72 % (42-75); PLATELET COUNT 245 10^3/uL (130-400); RED CELL DISTRIBUTION WIDTH 14.2 % (10.0-14.5); WHITE BLOOD COUNT 8.8 10^3/uL (4.3-11.0)
[2018-12-15] MEDS ORDERED: ONDANSETRON 4 MG/2 ML (SDV) Z0FRAN IVP ONE (06:45)
[2018-12-15] MEDS ORDERED: RT-ALBUTEROL/IPRATROPIUM 3 ML (DUONEB) VIAL INH ONE (06:45)
--- NOTE | 2018-12-15 06:49 | ED Respiratory ---
General Chief Complaint: Respiratory Problems Stated Complaint: SOA Source: patient Exam Limitations: no limitations History of Present Illness Date Seen by Provider: Dec 15, 2018 Time Seen by Provider: 06:27 Initial Comments Here with report of shortness of breath that has been going on for about a week but much worse overnight and this morning. Normally wears 5 L of oxygen at home. He arrives without oxygen on. He does have albuterol inhaler at home and states that that is not working. Denies runny nose or sore throat but does have some nausea. He states it's not normal when he has breathing problems. Reports some indigestion. Does have cough and states that he is coughing up a lot of stuff. Long history of COPD. Timing/Duration: week, getting worse Severity: moderate Prior Episodes/Possible Cause: occasional episodes Modifying Factors: Improves With Albuterol Inhaler; Worse With Coughing; Improves With Oxygen, Improves With Rest Associated Symptoms: No chest pain/soreness, No fever/chills; shortness of breath, wheezing Allergies and Home Medications Allergies Coded Allergies: hydrocodone (Verified Allergy, Unknown, NAUSEA, 12/15/18) oxycodone (Verified Allergy, Unknown, NAUSEA, 12/15/18) tramadol (Verified Allergy, Unknown, NAUSEA, 12/15/18) Home Medications Albuterol Sulfate 18 Gm Hfa.aer.ad, 2 PUFF INH Q6H PRN for SHORTNESS OF BREATH, (Reported) Albuterol Sulfate 2.5 Mg/3 Ml Vial.neb, 2.5 MG NEB Q4H PRN for SHORTNESS OF BREATH, (Reported) Amlodipine Besylate 5 Mg Tablet, 5 MG PO DAILY, (Reported) Aspirin 81 Mg Tablet.dr, 81 MG PO DAILY, (Reported) Atorvastatin Calcium 40 Mg Tablet, 40 MG PO DAILY, (Reported) Budesonide/Formoterol Fumarate 10.2 Gm Hfa.aer.ad, 2 PUFF IH BID PRN for SHORTNESS OF BREATH, (Reported) Carbidopa/Levodopa 1 Each Tablet.er, 1 TAB PO DAILY, (Reported) LAST FILLED #60 01-11-18 Citalopram Hydrobromide 40 Mg Tablet, 40 MG PO DAILY, (Reported) Glimepiride 4 Mg Tablet, 4 MG PO BID, (Reported) Insulin Detemir 100 Unit/1 Ml Insuln.pen, 40 UNITS SC HS, (Reported) Isosorbide Mononitrate 30 Mg Tab.er.24h, 30 MG PO DAILY, (Reported) Latanoprost 2.5 Ml Drops, 1 DROP OS HS, (Reported) Losartan Potassium 100 Mg Tablet, 100 MG PO DAILY, (Reported) Meloxicam 15 Mg Tablet, 15 MG PO DAILY, (Reported) Metformin HCl 500 Mg Tablet, 500 MG PO BID, (Reported) Oxycodone HCl/Acetaminophen 1 Each Tablet, 1 EACH PO Q4H PRN for PAIN-MODERATE Prescribed by: BERNIE ALONSO on 06/26/18 1102 Pantoprazole Sodium 40 Mg Tablet.dr, 40 MG PO DAILY, (Reported) Ropinirole HCl 2 Mg Tablet, 2 MG PO HS, (Reported) Ropinirole HCl 2 Mg Tablet, 2 MG PO BID PRN for RESTLESS LEGS, (Reported) Tramadol HCl 50 Mg Tablet, 50 MG PO Q6H PRN for PAIN-MODERATE TO SEVERE Prescribed by: TATA HERMOSILLO on 07/03/18 1725 Patient Home Medication List Home Medication List Reviewed: Yes Review of Systems Review of Systems Constitutional: see HPI, chills; No fever EENTM: no symptoms reported Respiratory: cough, short of breath, wheezing Cardiovascular: No chest pain, No edema Gastrointestinal: abdominal pain (epigastric); No diarrhea; nausea; No vomiting Genitourinary: no symptoms reported Musculoskeletal: no symptoms reported Skin: no symptoms reported All Other Systems Reviewed Negative Unless Noted: Yes Past Xpbowxu-Iqekil-Chqjdx Hx Past Med/Social Hx: Reviewed Nursing Past Med/Soc Hx Patient Social History Alcohol Use: Occasionally Uses Alcohol Beverage of Choice: Beer Recreational Drug Use: No Smoking Status: Former Smoker Type Used: Cigars Former Smoker, Quit: May 25, 1996 2nd Hand Smoke Exposure: Yes Recent Foreign Travel: No Contact w/Someone Who Travel: No Recent Hopitalizations: No Immunizations Up To Date Tetanus Booster (TDap): Unknown PED Vaccines UTD: Yes Date of Pneumonia Vaccine: Jun 27, 2017 Date of Influenza Vaccine: Jun 27, 2017 Seasonal Allergies Seasonal Allergies: No Past Medical History Surgeries: Yes (CATARACTS, KNEE SCOPE, SKIN CANCERS REMOVED) Coronary Stent, Orthopedic Respiratory: Yes (O2 4L NC) Sleep Apnea, COPD Currently Using CPAP: Yes Currently Using BIPAP: No Cardiac: Yes (stents x5) Coronary Artery Disease, Heart Attack, High Cholesterol, Hypertension Neurological: No Reproductive Disorders: No Sexually Transmitted Disease: No HIV/AIDS: No Genitourinary: No Gastrointestinal: No Gastroesophageal Reflux, Chronic Diarrhea Musculoskeletal: Yes Arthritis, Fractures Endocrine: Yes Diabetes, Insulin dep HEENT: No Cataract Loss of Vision: Bilateral Hearing Impairment: Hard of Hearing Cancer: Yes Skin Did You Recieve Any Treatments: Yes What Type of Treatment Did You: Surgical Intervention Psychosocial: Yes Anxiety Integumentary: Yes (ACTINIC KERATOSIS, SKIN CANCER) Eczema Blood Disorders: No Adverse Reaction/Blood Tranf: No (HAS HAD BLOOD WITH NO REACTION) Family Medical History Reviewed Nursing Family Hx Cancer 09 BROTHER Cancer of colon 09 BROTHER Cataract 03 MOTHER Chest pain 03 MOTHER Congenital heart disease 03 FATHER Congestive heart failure 03 FATHER Family history: Cardiovascular disease 03 FATHER 03 MOTHER Family history: Diabetes mellitus 03 FATHER Family history: Gastrointestinal disease 03 MOTHER Family history: Hypertension 03 MOTHER Hearing loss 03 FATHER Heart disease 03 FATHER History of - respiratory disease 03 FATHER Kidney disease 03 FATHER Myocardial infarction 03 FATHER Stroke 03 FATHER No Family History of: Abdominal aortic aneurysm [place]'s disease Alcoholism Aphasia Cystic fibrosis Dementia Dysphagia Family history: Allergy Family history: Alzheimer's disease Family history: Arthritis Family history: Asthma Family history: Breast disease Family history: Coronary thrombosis Family history: Glaucoma Family history: Osteoporosis Family history: Thyroid disorder Headache Hereditary disease History of - anemia History of - disorder History of drug abuse Human immunodeficiency virus (HIV) seropositivity Hypercholesterolemia Infertile Malignant neoplasm of lung Parkinson's disease Prostate cancer Psychotic disorder Seizure disorder Tuberculosis Visual impairment Physical Exam Vital Signs - First Documented 12/15/18 06:25 Temp 95.0 Pulse 85 Resp 24 B/P (MAP) 139/73 (95) Pulse Ox 96 O2 Delivery Nasal Cannula O2 Flow Rate 4.00 Capillary Refill : Height: 6'0" Weight: 220lbs. 7.0oz. [id number]; 30.0 BMI Method:Stated General Appearance: WD/WN, mild distress (respiratory) HEENT: PERRL/EOMI, pharynx normal Neck: full range of motion, supple Respiratory: decreased breath sounds, accessory muscle use, wheezing, expiration Cardiovascular: regular rate, rhythm, no murmur Gastrointestinal: non tender, soft Extremities: non-tender, normal inspection Neurologic/Psychiatric: alert, normal mood/affect, oriented x 3 Skin: normal color, warm/dry Focused Exam Lactate Level 12/15/18 06:30: Lactic Acid Level 2.01*H Lactic Acid Level Laboratory Tests Test 12/15/18 06:30 Lactic Acid Level 2.01 MMOL/L (0.50-2.00) *H Progress/Results/Core Measures Suspected Sepsis SIRS Temperature: Pulse: Respiratory Rate: Laboratory Tests 12/15/18 06:30: White Blood Count 8.8 Blood Pressure / Mean: 12/15/18 06:30: Lactic Acid Level 2.01*H Laboratory Tests 12/15/18 06:30: Creatinine 1.08, INR Comment 1.0, Platelet Count 245, Total Bilirubin 0.5 Results/Orders Lab Results Laboratory Tests Test 12/15/18 06:30 12/15/18 09:00 12/15/18 09:20 Range/Units White Blood Count 8.8 4.3-11.0 10^3/uL Red Blood Count 4.17 L 4.35-5.85 10^6/uL Hemoglobin 12.1 L 13.3-17.7 G/DL Hematocrit 36 L 40-54 % Mean Corpuscular Volume 87 80-99 FL Mean Corpuscular Hemoglobin 29 25-34 PG Mean Corpuscular Hemoglobin Concent 34 32-36 G/DL Red Cell Distribution Width 14.2 10.0-14.5 % Platelet Count 245 130-400 10^3/uL Mean Platelet Volume 9.9 7.4-10.4 FL Neutrophils (%) (Auto) 72 42-75 % Lymphocytes (%) (Auto) 14 12-44 % Monocytes (%) (Auto) 10 0-12 % Eosinophils (%) (Auto) 3 0-10 % Basophils (%) (Auto) 1 0-10 % Neutrophils # (Auto) 6.4 1.8-7.8 X 10^3 Lymphocytes # (Auto) 1.2 1.0-4.0 X 10^3 Monocytes # (Auto) 0.9 0.0-1.0 X 10^3 Eosinophils # (Auto) 0.3 0.0-0.3 10^3/uL Basophils # (Auto) 0.0 0.0-0.1 10^3/uL Prothrombin Time 13.3 12.2-14.7 SEC INR Comment 1.0 0.8-1.4 Activated Partial Thromboplast Time 25 24-35 SEC Sodium Level 139 135-145 MMOL/L Potassium Level 4.0 3.6-5.0 MMOL/L Chloride Level 102 98-107 MMOL/L Carbon Dioxide Level 25 21-32 MMOL/L Anion Gap 12 5-14 MMOL/L Blood Urea Nitrogen 21 H 7-18 MG/DL Creatinine 1.08 0.60-1.30 MG/DL Estimat Glomerular Filtration Rate > 60 BUN/Creatinine Ratio 19 Glucose Level 142 H 70-105 MG/DL Lactic Acid Level 2.01 *H 0.50-2.00 MMOL/L Calcium Level 9.5 8.5-10.1 MG/DL Corrected Calcium 9.2 8.5-10.1 MG/DL Total Bilirubin 0.5 0.1-1.0 MG/DL Aspartate Amino Transf (AST/SGOT) 18 5-34 U/L Alanine Aminotransferase (ALT/SGPT) < 6 0-55 U/L Alkaline Phosphatase 74 40-136 U/L Troponin I < 0.028 <0.028 NG/ML Total Protein 7.3 6.4-8.2 GM/DL Albumin 4.4 3.2-4.5 GM/DL Urine Color YELLOW Urine Clarity SLIGHTLY CLOUDY Urine pH 5 5-9 Urine Specific [place] 1.025 H 1.016-1.022 Urine Protein 3+ H NEGATIVE Urine Glucose (UA) 3+ H NEGATIVE Urine Ketones 1+ H NEGATIVE Urine Nitrite NEGATIVE NEGATIVE Urine Bilirubin NEGATIVE NEGATIVE Urine Urobilinogen NORMAL NORMAL MG/DL Urine Leukocyte Esterase NEGATIVE NEGATIVE Urine RBC (Auto) NEGATIVE NEGATIVE Urine RBC NONE /HPF Urine WBC 0-2 /HPF Urine Squamous Epithelial Cells 0-2 /HPF Urine Crystals NONE /LPF Urine Bacteria RARE /HPF Urine Casts NONE /LPF Urine Mucus NEGATIVE /LPF Urine Culture Indicated CULTURE PENDING Blood Gas Puncture Site RIGHT RADIAL Blood Gas Patient Temperature 95 Arterial Blood pH 7.40 7.37-7.43 Arterial Blood Partial Pressure CO2 37 35-45 MMHG Arterial Blood Partial Pressure O2 71 L 79-93 MMHG Arterial Blood HCO3 23 23-27 MMOL/L Arterial Blood Total CO2 24.3 21.0-31.0 MMOL/L Arterial Blood Oxygen Saturation 96 94-100 % Arterial Blood Base Excess -1.5 -2.5-2.5 MMOL/L Ahsan Test POSITIVE Blood Gas Ventilator Setting NO Blood Gas Inspired Oxygen 4 L Micro Results Microbiology 12/15/18 Influenza Types A,B Antigen (KARLENE) - Final, Complete My Orders Orders - LELE DEGROOT MD Cbc With Automated Diff (12/15/18 06:32) Comprehensive Metabolic Panel (12/15/18 06:32) Blood Culture (12/15/18 06:32) Sputum Culture (12/15/18 06:32) Urinalysis (12/15/18 06:32) Urine Culture (12/15/18 06:32) Protime With Inr (12/15/18 06:32) Partial Thromboplastin Time (12/15/18 06:32) Chest 1 View, Ap/Pa Only (12/15/18 06:32) Saline Lock/Iv-Start (12/15/18 06:32) Vital Signs Adult Sepsis Patie Q15M (12/15/18 06:32) O2 (12/15/18 06:32) Remove Rings In Anticipation O (12/15/18 06:32) Lactic Acid Analyzer (12/15/18 06:32) Influenza A And B Antigens (12/15/18 06:32) Albuterol/Ipra Inhalation Soln (Duoneb I (12/15/18 06:45) Methylprednisolone Sod Succ (Solu-Medrol (12/15/18 06:32) Svn Small Volume Nebulizer (12/15/18 06:32) Ondansetron Injection (Zofran Injectio (12/15/18 06:45) Ekg Tracing (12/15/18 06:39) Troponin I (12/15/18 06:39) Ondansetron Injection (Zofran Injectio (12/15/18 06:40) Albuterol Pre-Mix Nebs (Rt) (Proventil (12/15/18 07:17) Svn Small Volume Nebulizer (12/15/18 07:17) Albuterol Pre-Mix Nebs (Rt) (Proventil (12/15/18 08:12) Ipratropium 0.02% Neb Solution (Atrovent (12/15/18 08:15) Svn Small Volume Nebulizer (12/15/18 08:12) Svn Small Volume Nebulizer (12/15/18 08:12) Ipratropium 0.02% Neb Solution (Atrovent (12/15/18 08:11) Arterial Blood Gas (12/15/18 09:05) Arterial Blood Draw (12/15/18 09:34) Medications Given in ED Current Medications Medications Dose Ordered Sig/Regino Route Start Time Stop Time Status Last Admin Dose Admin Albuterol/ Ipratropium 3 ml ONCE ONCE INH 12/15/18 06:45 12/15/18 06:46 DC 12/15/18 06:57 3 ML Ondansetron HCl 4 mg ONCE ONCE IVP 12/15/18 06:45 12/15/18 06:46 DC 12/15/18 06:42 4 MG Vital Signs/I&O 12/15/18 12/15/18 12/15/18 12/15/18 06:25 06:25 06:58 07:45 Temp 95.0 Pulse 85 Resp 24 B/P (MAP) 139/73 (95) Pulse Ox 96 96 97 94 O2 Delivery Nasal Cannula Nasal Cannula Nasal Cannula Nasal Cannula O2 Flow Rate 4.00 4.00 4.00 4.00 12/15/18 07:52 Pulse Ox 92 O2 Delivery Nasal Cannula O2 Flow Rate 4.00 Capillary Refill : Progress Note : Progress Note Seen and evaluated. IV, labs, chest x-ray and UA ordered. EKG ordered. Sepsis workup initiated. Blood cultures and lactic acid ordered. We will get EKG due to the shortness of breath and epigastric discomfort and his significant history of multiple MIs. Duo neb ordered. Solu-Medrol 125 mg IV. Monitor patient. 0815: Repeat albuterol 3 ordered and done. Patient is just now starting to move a little air with some posterior wheezing noted on exam. States she is not at baseline. We will go ahead and do hour-long treatment. Monitor patient. 0940: Little better but still not at baseline although states does feel better. I did discuss the case with Dr. Zarate. Patient does have acute COPD exacerbation and will require intensive RT treatments as well as IV steroids. She accepts patient for admission, inpatient status. Requests consult with Dr. Chacon. 0942: I did discuss the case with Dr. Chacon and he accepts patient in consult. We will continue Solu-Medrol 60 mg IV every 6 and RT treatments. Discussed findings and concerns with patient and family and he agrees with plan. ECG Initial ECG Impression Date: Dec 15, 2018 Initial ECG Impression Time: 06:42 Initial ECG Rate: 64 Initial ECG Rhythm: Normal Sinus Initial ECG Comparisson: Unchanged Comment Sinus rhythm with normal axis. No evidence of ST elevation LA. Similar to previous of 04/18/18. Interpreted by me. Diagnostic Imaging Diagonstic Imaging: Xray Plain Films/CT/US/NM/MRI: chest Comments NAME: DEVIN MORALES MED REC#: [id number] PT STATUS: REG ER : 1940 PHYSICIAN: LELE DEGROOT MD ADMIT DATE: 12/15/18/ER Signed Date of Exam: 12/15/18 CHEST 1 VIEW, AP/PA ONLY INDICATION: Shortness of breath COMPARISON: 07/03/2018 FINDINGS: Single view of the chest demonstrates cardiac enlargement without overt pulmonary edema. Questionable basilar atelectasis present. Please note this is a lordotic view making evaluation difficult. There is no pneumothorax or large effusion. Chronic fracture deformity seen involving the left clavicle. IMPRESSION: 1. Limited examination due to lordosis 2. Questionable basilar atelectasis. Followup with two views recommended. Dictated by: Dictated on workstation # [id number] Dict: 12/15/18 0732 Trans: 12/15/18 09 Interpreted by: GALE CRISTOBAL Electronically signed by: GALE CRISTOBAL 12/15/18920 Departure Communication (Admissions) Time/Spoke to Admitting Phy: 09:40 Time/Spoke to Consulting Phy: 09:42 Impression Primary Impression: COPD (chronic obstructive pulmonary disease) Qualified Codes: J44.1 - Chronic obstructive pulmonary disease with (acute) exacerbation Disposition: ADMITTED INPATIENT Condition: Stable Admissions Decision to Admit Reason: Admit from ER (General) Decision to Admit/Date: Dec 15, 2018 Time/Decision to Admit Time: 09:40 Departure-Patient Inst. Referrals: YVETTE JACKMAN DO (PCP/Family) Primary Care Physician LELE DEGROOT MD Dec 15, 2018 06:49
--- NOTE | 2018-12-15 06:58 | NUR ---
REPORT GIVEN TO EMILY ALCOCER TO ASSUME CARE OF PT @ THIS TIME.
[2018-12-15 07:00] LABS: PROTHROMBIN TIME PATIENT 13.3 SEC (12.2-14.7)
[2018-12-15 07:03] LABS: ALANINE AMINOTRANSFERASE < 6 U/L (0-55); ALBUMIN 4.4 GM/DL (3.2-4.5); ALKALINE PHOSPHATASE 74 U/L (40-136); BILIRUBIN,TOTAL 0.5 MG/DL (0.1-1.0); BUN/CREATININE RATIO 19; CALCIUM 9.5 MG/DL (8.5-10.1); CARBON DIOXIDE 25 MMOL/L (21-32); CHLORIDE 102 MMOL/L (98-107); CREATININE SERUM 1.08 MG/DL (0.60-1.30); GFR ESTIMATED > 60; GLUCOSE 142 MG/DL (70-105); SODIUM 139 MMOL/L (135-145); TOTAL PROTEIN 7.3 GM/DL (6.4-8.2)
[2018-12-15] MEDS ORDERED: RT-ALBUTEROL SULF 2.5 MG/3 ML PRE-MIX VIAL INH STA ×2 (07:17→08:12)
--- NOTE | 2018-12-15 07:41 | Diagnostic Imaging Report ---
INDICATION: Shortness of breath COMPARISON: 07/03/2018 FINDINGS: Single view of the chest demonstrates cardiac enlargement without overt pulmonary edema. Questionable basilar atelectasis present. Please note this is a lordotic view making evaluation difficult. There is no pneumothorax or large effusion. Chronic fracture deformity seen involving the left clavicle. IMPRESSION: 1. Limited examination due to lordosis 2. Questionable basilar atelectasis. Followup with two views recommended. Dictated by: Dictated on workstation # [id number]
[2018-12-15] MEDS ORDERED: RT-IPRATROPIUM (ATROVENT) 0.5MG/2.5ML AMP IH ONE ×2 (08:11→08:15)
[2018-12-15 09:07] LABS: BILIRUBIN,URINE NEGATIVE (NEGATIVE); CLARITY,URINE SLIGHTLY CLOUDY; COLOR,URINE YELLOW; GLUCOSE, URINE (UA) 3+ (NEGATIVE); KETONES,URINE 1+ (NEGATIVE); LEUKOCYTE ESTERASE ,URINE NEGATIVE (NEGATIVE); NITRITE,URINE NEGATIVE (NEGATIVE); PH,URINE 5 (5-9); PROTEIN,URINE 3+ (NEGATIVE); UROBILINOGEN,URINE NORMAL (NORMAL)
[2018-12-15 09:15] LABS: BACTERIA,URINE RARE /HPF; SQUAMOUS EPITHELIAL CELL,UR 0-2 /HPF; WBC,URINE 0-2 /HPF
[2018-12-15 09:26] LABS: ABG BASE EXCESS -1.5 MMOL/L (-2.5-2.5); ABG OXYGEN SATURATION 96 % (94-100); ABG PCO2 37 MMHG (35-45); ABG PO2 71 MMHG (79-93); ABG TCO2 24.3 MMOL/L (21.0-31.0); ALLENS TEST POSITIVE; INSPIRED O2 4 L; VENTILATOR NO
[2018-12-15 09:27] LABS: PATIENT TEMP 95
--- NOTE | 2018-12-15 10:23 | Pulmonary Consultation ---
History of Present Illness History of Present Illness Date of Consultation 12/15/18 10:18 Time Seen by Provider: 10:18 Date of Admission History of Present Illness 78yo with hx of worsening SOB and requires 5 liters of oxygen at home presented secondary to worsening SOB and productive cough. Pt has been using albuterol INH without improvement. Allergies and Home Medications Allergies Coded Allergies: hydrocodone (Verified Allergy, Unknown, NAUSEA, 12/15/18) oxycodone (Verified Allergy, Unknown, NAUSEA, 12/15/18) tramadol (Verified Allergy, Unknown, NAUSEA, 12/15/18) Home Medications Albuterol Sulfate 18 Gm Hfa.aer.ad, 2 PUFF INH Q6H PRN for SHORTNESS OF BREATH, (Reported) Albuterol Sulfate 2.5 Mg/3 Ml Vial.neb, 2.5 MG NEB Q4H PRN for SHORTNESS OF BREATH, (Reported) Amlodipine Besylate 5 Mg Tablet, 5 MG PO DAILY, (Reported) Aspirin 81 Mg Tablet.dr, 81 MG PO DAILY, (Reported) Atorvastatin Calcium 40 Mg Tablet, 40 MG PO DAILY, (Reported) Budesonide/Formoterol Fumarate 10.2 Gm Hfa.aer.ad, 2 PUFF IH BID PRN for SHORTNESS OF BREATH, (Reported) Carbidopa/Levodopa 1 Each Tablet.er, 1 TAB PO DAILY, (Reported) LAST FILLED #60 01-11-18 Citalopram Hydrobromide 40 Mg Tablet, 40 MG PO DAILY, (Reported) Glimepiride 4 Mg Tablet, 4 MG PO BID, (Reported) Insulin Detemir 100 Unit/1 Ml Insuln.pen, 40 UNITS SC HS, (Reported) Isosorbide Mononitrate 30 Mg Tab.er.24h, 30 MG PO DAILY, (Reported) Latanoprost 2.5 Ml Drops, 1 DROP OS HS, (Reported) Losartan Potassium 100 Mg Tablet, 100 MG PO DAILY, (Reported) Meloxicam 15 Mg Tablet, 15 MG PO DAILY, (Reported) Metformin HCl 500 Mg Tablet, 500 MG PO BID, (Reported) Oxycodone HCl/Acetaminophen 1 Each Tablet, 1 EACH PO Q4H PRN for PAIN-MODERATE Prescribed by: BERNIE ALONSO on 06/26/18 1102 Pantoprazole Sodium 40 Mg Tablet.dr, 40 MG PO DAILY, (Reported) Ropinirole HCl 2 Mg Tablet, 2 MG PO HS, (Reported) Ropinirole HCl 2 Mg Tablet, 2 MG PO BID PRN for RESTLESS LEGS, (Reported) Tramadol HCl 50 Mg Tablet, 50 MG PO Q6H PRN for PAIN-MODERATE TO SEVERE Prescribed by: TATA HERMOSILLO on 07/03/18 1725 Past Typqsin-[id number] Hx Past Med/Social Hx: Reviewed Nursing Past Med/Soc Hx Patient Social History Alcohol Use: Occasionally Uses Number of Drinks Today: AA Alcohol Beverage of Choice: Beer Recreational Drug Use: No Smoking Status: Former Smoker Type Used: Cigars Former Smoker, Quit: May 25, 1996 2nd Hand Smoke Exposure: Yes Recent Foreign Travel: No Contact w/Someone Who Travel: No Recent Infectious Disease Expo: No Recent Hopitalizations: No Immunizations Up To Date Tetanus Booster (TDap): Unknown PED Vaccines UTD: Yes Date of Pneumonia Vaccine: Jun 27, 2017 Date of Influenza Vaccine: Jun 27, 2017 Seasonal Allergies Seasonal Allergies: No Past Medical History Surgeries: Yes (CATARACTS, KNEE SCOPE, SKIN CANCERS REMOVED) Coronary Stent, Orthopedic Respiratory: Yes (O2 4L NC) Sleep Apnea, COPD Currently Using CPAP: Yes Currently Using BIPAP: No Cardiac: Yes (stents x5) Coronary Artery Disease, Heart Attack, High Cholesterol, Hypertension Neurological: No Reproductive Disorders: No Sexually Transmitted Disease: No HIV/AIDS: No Genitourinary: No Gastrointestinal: No Gastroesophageal Reflux, Chronic Diarrhea Musculoskeletal: Yes Arthritis, Fractures Endocrine: Yes Diabetes, Insulin dep HEENT: No Cataract Loss of Vision: Bilateral Hearing Impairment: Hard of Hearing Cancer: Yes Skin Did You Recieve Any Treatments: Yes What Type of Treatment Did You: Surgical Intervention Psychosocial: Yes Anxiety Integumentary: Yes (ACTINIC KERATOSIS, SKIN CANCER) Eczema Blood Disorders: No Adverse Reaction/Blood Tranf: No (HAS HAD BLOOD WITH NO REACTION) Family Medical History Reviewed Nursing Family Hx Cancer 09 BROTHER Cancer of colon 09 BROTHER Cataract 03 MOTHER Chest pain 03 MOTHER Congenital heart disease 03 FATHER Congestive heart failure 03 FATHER Family history: Cardiovascular disease 03 FATHER 03 MOTHER Family history: Diabetes mellitus 03 FATHER Family history: Gastrointestinal disease 03 MOTHER Family history: Hypertension 03 MOTHER Hearing loss 03 FATHER Heart disease 03 FATHER History of - respiratory disease 03 FATHER Kidney disease 03 FATHER Myocardial infarction 03 FATHER Stroke 03 FATHER No Family History of: Abdominal aortic aneurysm Jae's disease Alcoholism Aphasia Cystic fibrosis Dementia Dysphagia Family history: Allergy Family history: Alzheimer's disease Family history: Arthritis Family history: Asthma Family history: Breast disease Family history: Coronary thrombosis Family history: Glaucoma Family history: Osteoporosis Family history: Thyroid disorder Headache Hereditary disease History of - anemia History of - disorder History of drug abuse Human immunodeficiency virus (HIV) seropositivity Hypercholesterolemia Infertile Malignant neoplasm of lung Parkinson's disease Prostate cancer Psychotic disorder Seizure disorder Tuberculosis Visual impairment Sepsis Event Evaluation Height, Weight, BMI Height: 6'0" Weight: 220lbs. 7.0oz. 99.041771bm; 30.0 BMI Method:Stated Exam Exam Vital Signs Date Time Temp Pulse Resp B/P (MAP) Pulse Ox O2 Delivery O2 Flow Rate FiO2 12/15/18 07:52 92 Nasal Cannula 4.00 12/15/18 07:45 94 Nasal Cannula 4.00 12/15/18 06:58 97 Nasal Cannula 4.00 12/15/18 06:25 95.0 85 24 139/73 (95) 96 Nasal Cannula 4.00 12/15/18 06:25 96 Nasal Cannula 4.00 Height & Weight Height: 6'0" Weight: 220lbs. 7.0oz. 99.517252fz; 30.0 BMI Method:Stated Capillary Refill: Less Than 3 Seconds Gastrointestinal: non tender, soft Results Lab Laboratory Tests 12/15/18 06:30 Assessment/Plan Assessment/Plan Acute on chronic respiratory failure -BiPAP PRN COPDAE -SVNS, advair -Solumedrol Dehydration with Metabolic lactic acidosis - -Repeat LA -IVF RAKEL THORPE DO Dec 15, 2018 10:23
[2018-12-15] MEDS ORDERED: RT-ALBUTEROL/IPRATROPIUM 3 ML (DUONEB) VIAL INH PRN (10:30)
[2018-12-15 10:33] VITALS: BP 136/61
[2018-12-15] MEDS ORDERED: ONDANSETRON 4 MG/2 ML (SDV) Z0FRAN IV PRN (11:00)
[2018-12-15] MEDS: NS IV 1000 ML 1,000 ML IV SCH (11:07)
[2018-12-15] MEDS: methylPREDNISolone 40 MG/ML (Solu-MEDROL) VIAL IV SCH ×3 (11:10→22:50)
--- NOTE | 2018-12-15 11:26 | History & Physical-Hospitalist ---
History of Present Illness HPI/Chief Complaint CC: Wheezing or shortness of breath HPI: This is a 78-year-old white male clinic patient of Dr. BARAKAT with a past medical history of severe COPD who presents to the hospital with severe shortness of breath and severe wheezing requiring extensive workup along with nebulizer treatments and IV steroids. He is maintained on oxygen long-term at home. He hasn't been hospitalized for over a year for COPD. He denies any current pain. We will restart most of his home medications once reconciled. Patient appears to be much improved and have had significant improvement with the wheezing. Source: patient, RN/MD, old records Exam Limitations: no limitations Date Seen 12/15/18 Time Seen by a Provider: 11:30 Attending Physician Lita Barakat DO PCP Lita Barakat DO Referring Physician Date of Admission Dec 15, 2018 at 09:45 Home Medications & Allergies Home Medications Reviewed patient Home Medication Reconciliation performed by pharmacy medication reconciliations controls technician and/or nursing. Patients Allergies have been reviewed. Allergies Allergies Coded Allergies hydrocodone (Verified Allergy, Unknown, NAUSEA, 12/15/18) oxycodone (Verified Allergy, Unknown, NAUSEA, 12/15/18) tramadol (Verified Allergy, Unknown, NAUSEA, 12/15/18) Past Iqsgset-Sgwxmb-Gsmbsr Hx Past Med/Social Hx: Reviewed Nursing Past Med/Soc Hx, Reviewed and Corrections made Patient Social History Employed/Student: retired Alcohol Use: Occasionally Uses Number of Drinks Today: AA Alcohol Beverage of Choice: Beer Recreational Drug Use: No Smoking Status: Former Smoker Former Smoker, Quit: May 25, 1996 Type Used: Cigars 2nd Hand Smoke Exposure: Yes Recent Foreign Travel: No Contact w/other who traveled: No Recent Hopitalizations: No Recent Infectious Disease Expo: No Immunizations Up To Date Tetanus Booster (TDap): Unknown Pediatric: Yes Date of Pneumonia Vaccine: Sep 25, 2018 Date of Influenza Vaccine: Sep 25, 2018 Seasonal Allergies Seasonal Allergies: No Past Medical History Surgeries: Coronary Stent, Orthopedic Respiratory: COPD, Pneumonia Currently Using CPAP: Yes Currently Using BIPAP: No Cardiac: Coronary Artery Disease, Heart Attack, High Cholesterol, Hypertension Reproductive: No Sexually Transmitted Disease: No HIV/AIDS: No Gastrointestinal: Gastroesophageal Reflux, Chronic Diarrhea Musculoskeletal: Arthritis, Fractures Endocrine: Diabetes, Insulin dep HEENT: Cataract Loss of Vision: Bilateral Hearing Impairment: Hard of Hearing Cancer: Skin Did You Recieve Any Treatments: Yes What Type of Treatment Did You: Surgical Intervention Psychosocial: Anxiety Skin/Integumentary: Eczema History of Blood Disorders: No Adverse Reaction to Blood Starr: No (HAS HAD BLOOD WITH NO REACTION) Family History Reviewed Nursing Family Hx Cancer 09 BROTHER Cancer of colon 09 BROTHER Cataract 03 MOTHER Chest pain 03 MOTHER Congenital heart disease 03 FATHER Congestive heart failure 03 FATHER Family history: Cardiovascular disease 03 FATHER 03 MOTHER Family history: Diabetes mellitus 03 FATHER Family history: Gastrointestinal disease 03 MOTHER Family history: Hypertension 03 MOTHER Hearing loss 03 FATHER Heart disease 03 FATHER History of - respiratory disease 03 FATHER Kidney disease 03 FATHER Myocardial infarction 03 FATHER Stroke 03 FATHER No Family History of: Abdominal aortic aneurysm [place]'s disease Alcoholism Aphasia Cystic fibrosis Dementia Dysphagia Family history: Allergy Family history: Alzheimer's disease Family history: Arthritis Family history: Asthma Family history: Breast disease Family history: Coronary thrombosis Family history: Glaucoma Family history: Osteoporosis Family history: Thyroid disorder Headache Hereditary disease History of - anemia History of - disorder History of drug abuse Human immunodeficiency virus (HIV) seropositivity Hypercholesterolemia Infertile Malignant neoplasm of lung Parkinson's disease Prostate cancer Psychotic disorder Seizure disorder Tuberculosis Visual impairment Review of Systems Constitutional: see HPI, weakness EENTM: no symptoms reported Respiratory: cough, dyspnea on exertion, short of breath, wheezing Cardiovascular: no symptoms reported Gastrointestinal: no symptoms reported Genitourinary: no symptoms reported Musculoskeletal: no symptoms reported Skin: no symptoms reported Psychiatric/Neurological: No Symptoms Reported All Other Systems Reviewed Negative Unless Noted: Yes Physical Exam Physical Exam Vital Signs Vital Signs - First Documented 12/15/18 06:25 Temp 95.0 Pulse 85 Resp 24 B/P (MAP) 139/73 (95) Pulse Ox 96 O2 Delivery Nasal Cannula O2 Flow Rate 4.00 Capillary Refill : Less Than 3 Seconds Height, Weight, BMI Height: 6'0.00" Weight: 211lbs. 3.0oz. 95.680777ic; 30.0 BMI Method:Stated General Appearance: No Apparent Distress, WD/WN, Chronically ill Eyes: Right Eye Normal Inspection, Right Eye PERRL HEENT: PERRL/EOMI, Normal ENT Inspection, Pharynx Normal, Moist Mucous Membranes Neck: Full Range of Motion, Normal Inspection, Non Tender Respiratory: Chest Non Tender, No Accessory Muscle Use, No Respiratory Distress , Crackles, Decreased Breath Sounds, Wheezing Cardiovascular: Regular Rate, Rhythm, No Edema, No Gallop, No JVD, No Murmur, Normal Peripheral Pulses Gastrointestinal: Normal Bowel Sounds, No Organomegaly, No Pulsatile Mass, Non Tender, Soft Back: Normal Inspection, No CVA Tenderness, No Vertebral Tenderness Extremity: Normal Capillary Refill, Normal Inspection, Normal Range of Motion, Non Tender, No Calf Tenderness, No Pedal Edema Neurologic/Psychiatric: Alert, Oriented x3, No Motor/Sensory Deficits, Normal Mood/Affect Skin: Normal Color, Warm/Dry Lymphatic: No Adenopathy Results Results/Procedures Labs Laboratory Tests 12/15/18 06:30 Patient resulted labs reviewed. Assessment/Plan Admission Diagnosis Assessment: Acute exacerbation of COPD Acute respiratory insufficiency Elevated lactic acid due to severe exacerbation of COPD and work of breathing Oxygen dependent Hypertension DM on insulin PD Plan: Home meds IV steroids O2 Nebs Appreciate Dr Chacon consultation Admission Status: Inpatient Order (span 2 midnights) Reason for Inpatient Admission: Severe COPD exacerbation with elevated lactic acid from work of breathing and bronchospasm Diagnosis/Problems Diagnosis/Problems (1) Respiratory insufficiency Status: Acute (2) COPD (chronic obstructive pulmonary disease) Onset Date: 09/04/2014 Status: Acute Qualifiers: COPD type: COPD with acute exacerbation Qualified Codes: J44.1 - Chronic obstructive pulmonary disease with (acute) exacerbation (3) Parkinson disease Status: Chronic (4) HTN (hypertension) Status: Chronic Qualifiers: Hypertension type: essential hypertension Qualified Codes: I10 - Essential (primary) hypertension (5) IDDM (insulin dependent diabetes mellitus) Status: Chronic (6) Hypoxia Onset Date: 09/04/2014 Status: Chronic Clinical Quality Measures DVT/VTE Risk/Contraindication: Risk Factor Score Per Nursin RFS Level Per Nursing on Admit: 4+=Very High ENRIQUE DUNN DO Dec 15, 2018 11:26
[2018-12-15 12:00] VITALS: BP 153/55
[2018-12-15 15:55] VITALS: BP 138/99
[2018-12-15] MEDS: RT-ALBUTEROL/IPRATROPIUM 3 ML (DUONEB) VIAL INH SCH (20:17)
[2018-12-15 20:20] VITALS: BP 155/69
[2018-12-15] MEDS ORDERED: ACETAMINOPHEN 325 MG TABLET PO PRN (22:00)
[2018-12-15] MEDS: diphenhydrAMINE 25 MG TAB (BENADRYL) PO PRN (22:35)
[2018-12-15] MEDS: MELATONIN 3 MG TABLET PO SCH (22:35)
[2018-12-15 23:08] VITALS: BP 148/67
[2018-12-16] MEDS: NS IV 1000 ML 1,000 ML IV SCH (00:30)
[2018-12-16] MEDS: RT-ALBUTEROL/IPRATROPIUM 3 ML (DUONEB) VIAL INH SCH ×6 (01:27→22:16)
[2018-12-16 04:15] VITALS: BP 147/74
[2018-12-16] MEDS: methylPREDNISolone 40 MG/ML (Solu-MEDROL) VIAL IV SCH (04:24)
--- NOTE | 2018-12-16 06:08 | Pulmonary Progress Note ---
Subjective Time Seen by a Provider: 06:08 Subjective/Events-last exam PT feels more SOB. Sepsis Event Evaluation Height, Weight, BMI Height: 6'0.00" Weight: 314lbs. 0.0oz. 142.549869kp; 30.0 BMI Method:Stated Focused Exam Lactate Level 12/15/18 06:30: Lactic Acid Level 2.01*H 12/15/18 09:55: Lactic Acid Level 4.71*H Exam Exam Vital Signs Date Time Temp Pulse Resp B/P (MAP) Pulse Ox O2 Delivery O2 Flow Rate FiO2 12/16/18 04:15 97.9 77 20 147/74 (98) 93 Nasal Cannula 4.00 12/16/18 01:27 77 92 36 12/16/18 01:27 92 Nasal Cannula 4.00 12/15/18 23:08 98.5 82 20 148/67 (94) 95 Room Air 12/15/18 20:20 98.4 78 20 155/69 (97) 92 Room Air 12/15/18 20:17 91 Room Air 12/15/18 20:00 Room Air 12/15/18 15:55 98.4 88 20 138/99 (112) 96 Room Air 12/15/18 12:00 99.3 102 20 153/55 (87) 95 Nasal Cannula 4.00 12/15/18 10:47 92 Room Air 12/15/18 10:33 98.6 94 20 136/61 92 Room Air 12/15/18 10:15 95.6 95 20 154/69 (97) 97 Nasal Cannula 4.00 12/15/18 07:52 92 Nasal Cannula 4.00 12/15/18 07:45 94 Nasal Cannula 4.00 12/15/18 06:58 97 Nasal Cannula 4.00 12/15/18 06:25 95.0 85 24 139/73 (95) 96 Nasal Cannula 4.00 12/15/18 06:25 96 Nasal Cannula 4.00 I & O 12/16/18 07:00 Intake Total 2800 ml Output Total 1900 ml Balance 900 ml Height & Weight Height: 6'0.00" Weight: 314lbs. 0.0oz. 142.887216qp; 30.0 BMI Method:Stated General Appearance: No Apparent Distress, WD/WN, Chronically ill HEENT: PERRL/EOMI, Normal ENT Inspection, Pharynx Normal, Moist Mucous Membranes Neck: Full Range of Motion, Normal Inspection, Non Tender Respiratory: Chest Non Tender, No Accessory Muscle Use, No Respiratory Distress , Crackles, Decreased Breath Sounds, Wheezing Cardiovascular: Regular Rate, Rhythm, No Edema, No Gallop, No JVD, No Murmur, Normal Peripheral Pulses Capillary Refill: Less Than 3 Seconds Gastrointestinal: non tender, soft Extremity: Normal Capillary Refill, Normal Inspection, Normal Range of Motion, Non Tender, No Calf Tenderness, No Pedal Edema Neurologic/Psychiatric: Alert, Oriented x3, No Motor/Sensory Deficits, Normal Mood/Affect Skin: Normal Color, Warm/Dry Lymphatic: No Adenopathy Results Lab Laboratory Tests 12/15/18 06:30 Assessment/Plan Assessment/Plan Acute on chronic respiratory failure -BiPAP PRN -Check cxr and give 40mg of lasix x 1 -Hep lock IVF COPDAE -SVNS, advair -Solumedrol -- Change to Prednisone taper. -ABG -C02 37 Dehydration with Metabolic lactic acidosis - on admission RAKEL THORPE DO Dec 16, 2018 06:08
[2018-12-16 06:34] LABS: BASOPHILS % (AUTO) 0 % (0-10); EOSINOPHILS % (AUTO) 0 % (0-10); HEMATOCRIT 32 % (40-54); HEMOGLOBIN 10.7 G/DL (13.3-17.7); LYMPHOCYTES # (AUTO) 0.5 X 10^3 (1.0-4.0); LYMPHOCYTES % (AUTO) 4 % (12-44); MEAN CORPUSCULAR HEMOGLOBIN 29 PG (25-34); MEAN CORPUSCULAR HGB CONC 33 G/DL (32-36); MEAN CORPUSCULAR VOLUME 86 FL (80-99); MEAN PLATELET VOLUME 10.2 FL (7.4-10.4); MONOCYTES # (AUTO) 0.6 X 10^3 (0.0-1.0); MONOCYTES % (AUTO) 5 % (0-12); NEUTROPHILS # (AUTO) 11.7 X 10^3 (1.8-7.8); NEUTROPHILS % (AUTO) 91 % (42-75); PLATELET COUNT 206 10^3/uL (130-400); RED CELL DISTRIBUTION WIDTH 13.7 % (10.0-14.5); WHITE BLOOD COUNT 12.9 10^3/uL (4.3-11.0)
[2018-12-16 06:59] LABS: ALANINE AMINOTRANSFERASE < 6 U/L (0-55); ALBUMIN 4.3 GM/DL (3.2-4.5); ALKALINE PHOSPHATASE 75 U/L (40-136); BILIRUBIN,TOTAL 0.4 MG/DL (0.1-1.0); BUN/CREATININE RATIO 19; CALCIUM 9.4 MG/DL (8.5-10.1); CARBON DIOXIDE 18 MMOL/L (21-32); CHLORIDE 105 MMOL/L (98-107); CREATININE SERUM 1.17 MG/DL (0.60-1.30); GFR ESTIMATED 60; GLUCOSE 286 MG/DL (70-105); MAGNESIUM 2.2 MG/DL (1.8-2.4); PHOSPHORUS 3.2 MG/DL (2.3-4.7); POTASSIUM 4.3 MMOL/L (3.6-5.0); SODIUM 138 MMOL/L (135-145); TOTAL PROTEIN 6.7 GM/DL (6.4-8.2)
[2018-12-16 08:00] VITALS: BP 140/62
[2018-12-16] MEDS ORDERED: FUROSEMIDE 40 MG/4 ML INJ (LASIX) IVP ONE (08:00)
[2018-12-16] MEDS ORDERED: KCL 20 MEQ TAB (K-DUR) PO ONE (08:00)
[2018-12-16] MEDS ORDERED: ISM60TCR PO (08:57)
[2018-12-16] MEDS ORDERED: ACET-2267 PO (08:57)
[2018-12-16] MEDS ORDERED: ACET-2469 PO (08:57)
[2018-12-16] MEDS ORDERED: CALC100T2 PO (08:57)
[2018-12-16] MEDS ORDERED: [UNRECOGNIZED DRUG - CODE] TP (08:57)
[2018-12-16] MEDS ORDERED: POTA99TA17 PO (08:57)
[2018-12-16] MEDS ORDERED: MELO7.5T46 PO (08:57)
[2018-12-16] MEDS ORDERED: ROPI4TAB5 PO (08:57)
[2018-12-16] MEDS ORDERED: INSU100V16 SQ (08:57)
[2018-12-16] MEDS ORDERED: CEFD300C3 PO (09:52)
[2018-12-16] MEDS ORDERED: METF-478 PO (09:52)
[2018-12-16] MEDS ORDERED: TRAM50TA2 PO (09:52)
[2018-12-16] MEDS ORDERED: CARB1TAB41 PO (09:52)
[2018-12-16] MEDS ORDERED: PRD20T PO (09:52)
[2018-12-16] MEDS ORDERED: CODE118S4 PO (09:52)
--- NOTE | 2018-12-16 09:55 | NUR ---
SPOKE WITH THE PATIENT ABOUT HIS MEDICATIONS. HE HAD A LIST AND WE WENT OVER THAT. I CALLED AND HAD A LIST SENT OVER FROM [facility] AND COMPARED WITH THE LIST WE DISCUSSED. IN ADDITION TO WHAT WAS ON HIS LIST HE FILLED SOME ANTIBIOTICS, STEROID, AND COUGH SYRUP RECENTLY EAGLE I ADDED TO THE MED REC TO BE ADDRESSED AT DISCHARGE. ADDITIONALLY HE HAS FILLED THE CARBIDOPA LEVODOPA, WHEN I ASKED HIM ABOUT THIS HE STATED HE THOUGHT HE TOOK SOMETHING LIKE THAT BUT IF IT WAS NOT ON HIS LIST HE IS NOT TAKING IT. SINCE IT WAS FILLED RECENTLY AND HE THOUGHT HE WAS TAKING SOMETHING LIKE THAT I ADDED IT TO THE MED REC AT THIS TIME. [facility] FILLED: 10-10-18 ATORVASTATIN 40MG DAILY #90 10-10-18 [id number] 100MG DAILY #90 10-10-18 AMLODIPINE 5MG DAILY #90 11-20-18 ISOSORBIDE MONO ER 60MG DAILY #30 11-25-18 ALBUTEROL 0.083% Q4H PRN 12-04-18 NOVOLOG 100 10 UNITS BEFORE MEALS (STATES HE USES AT HS ONLY) 12-04-18 PROTONIX 40MG DAILY #30 12-04-18 ROPINIROLE 4MG 3 HS #90 12-04-18 METFORMIN ER 500MG 2 BID #120 12-04-18 SYMBICORT 160 2 PUFFS BID (STATES HE USES PRN) 12-04-18 TRAMADOL 50MG TID PRN #60 12-06-18 CARB/LEVO ER 50-200 BID #60 12-09-18 PROMETH W/ CODEINE 6.25-10 5ML Q6H PRN COUGH 12-09-18 CEFDINIR 300MG BID X 10 DAYS #20 12-12-18 PREDNISONE 20NG DAILY #5 12-13-18 LEVEMIR FLEXTOUCH 20 UNITS DAILY (HAS NOT STARTED YET) HE ALSO REPORTS USING MELOXICAM AND VENTOLIN PRN OTC MEDS: POTASSIUM GLUCONATE DAILY TYLENOL 500-1000MG Q6H PRN TYLENOL PM 2 HS PRN ASPIRIN 81MG DAILY CALCIUM LACTATE TID NATASHA GEL PRN
[2018-12-16] MEDS: predniSONE 10 MG TAB PO SCH (11:59)
[2018-12-16 12:00] VITALS: BP 138/62
--- NOTE | 2018-12-16 12:53 | Diagnostic Imaging Report ---
INDICATION: Shortness of air. TIME OF EXAM: 12:28 p.m. Correlation is made with prior study from 12/15/2018. The heart size is normal. The lungs appear to be clear. There is some hyperinflation consistent with COPD. No infiltrates or effusion is identified. There is no pneumothorax. There is a healing midshaft left clavicle fracture. IMPRESSION: COPD. No acute cardiopulmonary process is detected. Dictated by: Dictated on workstation # [id number]
[2018-12-16 15:50] VITALS: BP 138/62
--- NOTE | 2018-12-16 18:21 | Progress Note (SOAP) ---
Subjective Date Seen by a Provider: Dec 16, 2018 Time Seen by a Provider: 12:30 Subjective/Events-last exam Fwup acute on chronic respiratory failure, acute exacerbation of COPD, dehydration, metabolic acidosis, uncontrolled DM--insulin requiring, Hypertension, Hx of CAD. Sitting up in chair with oxygen on. States feels much better. Focused Exam Lactate Level 12/15/18 06:30: Lactic Acid Level 2.01*H 12/15/18 09:55: Lactic Acid Level 4.71*H Objective Exam Vital Signs Date Time Temp Pulse Resp B/P (MAP) Pulse Ox O2 Delivery O2 Flow Rate FiO2 12/16/18 15:50 97.0 89 18 138/62 (87) 95 Nasal Cannula 4.00 12/16/18 14:00 93 Nasal Cannula 4.00 12/16/18 12:00 98.7 83 20 138/62 (87) 94 Nasal Cannula 4.00 12/16/18 10:33 93 Nasal Cannula 4.00 12/16/18 08:00 98.2 90 20 140/62 (88) 92 Nasal Cannula 4.00 12/16/18 08:00 92 Nasal Cannula 4.00 12/16/18 07:02 93 Nasal Cannula 4.00 12/16/18 04:15 97.9 77 20 147/74 (98) 93 Nasal Cannula 4.00 12/16/18 01:27 77 92 36 12/16/18 01:27 92 Nasal Cannula 4.00 12/15/18 23:08 98.5 82 20 148/67 (94) 95 Room Air 12/15/18 20:20 98.4 78 20 155/69 (97) 92 Room Air 12/15/18 20:17 91 Room Air 12/15/18 20:00 Room Air I & O 12/16/18 07:00 Intake Total 3000 ml Output Total 2750 ml Balance 250 ml Capillary Refill : Less Than 3 Seconds General Appearance: No Apparent Distress Neck: Supple Respiratory: Lungs Clear, Decreased Breath Sounds Cardiovascular: Regular Rate, Rhythm Gastrointestinal: normal bowel sounds, non tender, soft Extremity: Non Tender, No Calf Tenderness, No Pedal Edema Neurologic/Psychiatric: Alert, Oriented x3 Skin: Warm/Dry Results Lab Laboratory Tests 12/16/18 05:22: White Blood Count 12.9H, Red Blood Count 3.74L, Hemoglobin 10.7L, Hematocrit 32L , Mean Corpuscular Volume 86, Mean Corpuscular Hemoglobin 29, Mean Corpuscular Hemoglobin Concent 33, Red Cell Distribution Width 13.7, Platelet Count 206, Mean Platelet Volume 10.2, Neutrophils (%) (Auto) 91H, Lymphocytes (%) (Auto) 4L , Monocytes (%) (Auto) 5, Eosinophils (%) (Auto) 0, Basophils (%) (Auto) 0, Neutrophils # (Auto) 11.7H, Lymphocytes # (Auto) 0.5L, Monocytes # (Auto) 0.6, Eosinophils # (Auto) 0.0, Basophils # (Auto) 0.0, Sodium Level 138, Potassium Level 4.3, Chloride Level 105, Carbon Dioxide Level 18L, Anion Gap 15H, Blood Urea Nitrogen 22H, Creatinine 1.17, Estimat Glomerular Filtration Rate 60, BUN/ Creatinine Ratio 19, Glucose Level 286H, Calcium Level 9.4, Corrected Calcium 9.2, Phosphorus Level 3.2, Magnesium Level 2.2, Total Bilirubin 0.4, Aspartate Amino Transf (AST/SGOT) 17, Alanine Aminotransferase (ALT/SGPT) < 6, Alkaline Phosphatase 75, B-Type Natriuretic Peptide 118.9H, Total Protein 6.7, Albumin 4.3 Microbiology 12/15/18 Blood Culture - Preliminary, Resulted No growth 12/15/18 Gram Stain, Resulted Pending 12/15/18 Sputum Culture - Preliminary, Resulted Usual upper respiratory praful 12/15/18 Urine Culture - Final, Complete NO GROWTH Assessment/Plan Assessment/Plan Assess & Plan/Chief Complaint 1. Acute on Chronic Respiratory Failure--on oxygen via NC 2. Acute Exacerbation of COPD--on oxygen, SVNS and switched from IV solumedrol to oral prednisone 3. Diabetes mellitus--insulin requiring, on accuchecks with SSI 4. Hypertension--resume home meds 5. Dehydration with metabolic acidosis--improved Clinical Quality Measures DVT/VTE Risk/Contraindication: Risk Factor Score Per Nursin RFS Level Per Nursing on Admit: 4+=Very High YVETTE JACKMAN DO Dec 16, 2018 18:21
[2018-12-16 19:28] VITALS: BP 158/75
[2018-12-16] MEDS: SINEMET CR 50/200 (CARBIDOPA/LEVODOPA SA) TAB PO SCH (20:53)
[2018-12-16] MEDS: diphenhydrAMINE 25 MG TAB (BENADRYL) PO PRN (20:53)
[2018-12-16] MEDS: MELATONIN 3 MG TABLET PO SCH (20:53)
[2018-12-17] VITALS: BP 158/75
[2018-12-17] MEDS: RT-ALBUTEROL/IPRATROPIUM 3 ML (DUONEB) VIAL INH SCH ×6 (02:36→22:30)
[2018-12-17 03:53] VITALS: BP 126/64
--- NOTE | 2018-12-17 06:49 | Pulmonary Progress Note ---
Subjective Time Seen by a Provider: 06:48 Subjective/Events-last exam No complications noted. Sepsis Event Evaluation Height, Weight, BMI Height: 6'0.00" Weight: 209lbs. 5.0oz. 94.171510wd; 30.0 BMI Method:Stated Focused Exam Lactate Level 12/15/18 06:30: Lactic Acid Level 2.01*H 12/15/18 09:55: Lactic Acid Level 4.71*H Exam Exam Vital Signs Date Time Temp Pulse Resp B/P (MAP) Pulse Ox O2 Delivery O2 Flow Rate FiO2 12/17/18 03:53 96.6 81 24 126/64 (84) 95 Nasal Cannula 4.00 12/17/18 02:36 98 Nasal Cannula 4.00 12/17/18 00:00 96.2 74 22 158/75 (102) 96 Nasal Cannula 4.00 12/16/18 22:16 98 Nasal Cannula 4.00 12/16/18 20:00 Room Air 12/16/18 19:28 96.9 77 20 158/75 (102) 96 Nasal Cannula 4.00 12/16/18 18:32 95 Nasal Cannula 4.00 12/16/18 15:50 97.0 89 18 138/62 (87) 95 Nasal Cannula 4.00 12/16/18 14:00 93 Nasal Cannula 4.00 12/16/18 12:00 98.7 83 20 138/62 (87) 94 Nasal Cannula 4.00 12/16/18 10:33 93 Nasal Cannula 4.00 12/16/18 08:00 98.2 90 20 140/62 (88) 92 Nasal Cannula 4.00 12/16/18 08:00 92 Nasal Cannula 4.00 12/16/18 07:02 93 Nasal Cannula 4.00 I & O 12/17/18 07:00 Intake Total 2860 ml Output Total 1275 ml Balance 1585 ml Height & Weight Height: 6'0.00" Weight: 209lbs. 5.0oz. 94.885588pm; 30.0 BMI Method:Stated General Appearance: No Apparent Distress HEENT: PERRL/EOMI, Normal ENT Inspection, Pharynx Normal, Moist Mucous Membranes Neck: Supple Respiratory: Lungs Clear, Decreased Breath Sounds Cardiovascular: Regular Rate, Rhythm Capillary Refill: Less Than 3 Seconds Gastrointestinal: normal bowel sounds, non tender, soft Extremity: Non Tender, No Calf Tenderness, No Pedal Edema Neurologic/Psychiatric: Alert, Oriented x3 Skin: Warm/Dry Lymphatic: No Adenopathy Results Lab Laboratory Tests 12/16/18 05:22 Assessment/Plan Assessment/Plan Acute on chronic respiratory failure -BiPAP PRN -repeat CXR and labs this AM -Hep lock IVF COPDAE -SVNS, advair -Solumedrol -- Change to Prednisone taper. -ABG -C02 37 Dehydration with Metabolic lactic acidosis - on admission -Repeat Labs Leukocytosis - secondary to prednisone -No fevers RAKEL THORPE DO Dec 17, 2018 06:49
[2018-12-17 07:34] VITALS: BP 155/72
[2018-12-17] MEDS: predniSONE 10 MG TAB PO SCH (07:38)
[2018-12-17 08:02] LABS: BASOPHILS % (AUTO) 0 % (0-10); EOSINOPHILS % (AUTO) 0 % (0-10); HEMATOCRIT 35 % (40-54); HEMOGLOBIN 11.6 G/DL (13.3-17.7); LYMPHOCYTES # (AUTO) 0.7 X 10^3 (1.0-4.0); LYMPHOCYTES % (AUTO) 5 % (12-44); MEAN CORPUSCULAR HEMOGLOBIN 29 PG (25-34); MEAN CORPUSCULAR HGB CONC 33 G/DL (32-36); MEAN CORPUSCULAR VOLUME 87 FL (80-99); MEAN PLATELET VOLUME 9.6 FL (7.4-10.4); MONOCYTES # (AUTO) 0.9 X 10^3 (0.0-1.0); MONOCYTES % (AUTO) 7 % (0-12); NEUTROPHILS # (AUTO) 12.6 X 10^3 (1.8-7.8); NEUTROPHILS % (AUTO) 89 % (42-75); PLATELET COUNT 253 10^3/uL (130-400); RED CELL DISTRIBUTION WIDTH 14.4 % (10.0-14.5); WHITE BLOOD COUNT 14.3 10^3/uL (4.3-11.0)
[2018-12-17 08:17] LABS: BUN/CREATININE RATIO 23; CALCIUM 9.5 MG/DL (8.5-10.1); CARBON DIOXIDE 23 MMOL/L (21-32); CHLORIDE 101 MMOL/L (98-107); CREATININE SERUM 1.13 MG/DL (0.60-1.30); GFR ESTIMATED > 60; GLUCOSE 255 MG/DL (70-105); MAGNESIUM 2.5 MG/DL (1.8-2.4); PHOSPHORUS 3.7 MG/DL (2.3-4.7); POTASSIUM 4.2 MMOL/L (3.6-5.0); SODIUM 137 MMOL/L (135-145)
[2018-12-17 08:46] LABS: BAND NEUTROPHILS 2 %; BASOPHILS % (MANUAL) 0 %; EOSINOPHILS % (MANUAL) 0 %; LYMPHOCYTES % (MANUAL) 5 %; MONOCYTES % (MANUAL) 7 %; NEUTROPHILS % (MANUAL) 86 %; RBC MORPH NORMAL
[2018-12-17] MEDS: LOSARTAN 100 MG (COZAAR) TABLET PO SCH (08:54)
[2018-12-17] MEDS: ASPIRIN 81 MG CHEW (CHILDREN'S ASA) PO SCH (08:54)
[2018-12-17] MEDS: PANTOPRAZOLE 40 MG (PROTONIX) TAB PO SCH (08:54)
[2018-12-17] MEDS: SINEMET CR 50/200 (CARBIDOPA/LEVODOPA SA) TAB PO SCH ×2 (08:54→20:08)
[2018-12-17] MEDS: ISOSORBIDE MONONITRATE 60 MG (IMDUR) TAB PO SCH (08:55)
--- NOTE | 2018-12-17 11:22 | Diagnostic Imaging Report ---
CLINICAL INDICATION: Patient with hypoxia. EXAM: Portable chest x-ray upright view. COMPARISONS: Chest x-ray dated 12/16/2018. FINDINGS: Lungs/pleura: Again seen hyperinflated lungs which may be related to COPD. There is also stable increased lung markings throughout which may be related to scarring. There is no interval lung infiltrate. Lungs are clear. There is no pneumothorax. There is no pleural effusion. Mediastinum: Unremarkable. Pulmonary vasculature: Unremarkable. Heart: Unremarkable. Bones/extrathoracic soft tissue: There are hypertrophic spurs involving the thoracic spine. IMPRESSION: Stable chest x-ray exam with no interval radiographic evidence of acute cardiopulmonary process. Dictated by: Dictated on workstation # [id number]
--- NOTE | 2018-12-17 12:21 | Progress Note (SOAP) ---
Subjective Date Seen by a Provider: Dec 17, 2018 Time Seen by a Provider: 12:19 Subjective/Events-last exam Fwup acute on chronic respiratory failure, acute exacerbation of COPD, dehydration, metabolic acidosis, uncontrolled DM--insulin requiring, Hypertension, Hx of CAD. Up in chair but complains of thick phlegm and lactic acid back up this AM. Focused Exam Lactate Level 12/15/18 09:55: Lactic Acid Level 4.71*H 12/17/18 07:47: Lactic Acid Level 3.13*H 12/17/18 09:47: Lactic Acid Level 2.70*H Lactic Acid Level Laboratory Tests Test 12/17/18 09:47 Lactic Acid Level 2.70 MMOL/L (0.50-2.00) *H Objective Exam Vital Signs Date Time Temp Pulse Resp B/P (MAP) Pulse Ox O2 Delivery O2 Flow Rate FiO2 12/17/18 10:03 95 Nasal Cannula 4.00 12/17/18 08:00 Room Air 12/17/18 07:34 98.2 100 20 155/72 (99) 95 Nasal Cannula 4.00 12/17/18 06:51 95 Nasal Cannula 4.00 12/17/18 03:53 96.6 81 24 126/64 (84) 95 Nasal Cannula 4.00 12/17/18 02:36 98 Nasal Cannula 4.00 12/17/18 00:00 96.2 74 22 158/75 (102) 96 Nasal Cannula 4.00 12/16/18 22:16 98 Nasal Cannula 4.00 12/16/18 20:00 Room Air 12/16/18 19:28 96.9 77 20 158/75 (102) 96 Nasal Cannula 4.00 12/16/18 18:32 95 Nasal Cannula 4.00 12/16/18 15:50 97.0 89 18 138/62 (87) 95 Nasal Cannula 4.00 12/16/18 14:00 93 Nasal Cannula 4.00 I & O 12/17/18 07:00 Intake Total 2860 ml Output Total 1275 ml Balance 1585 ml Capillary Refill : Less Than 3 Seconds General Appearance: No Apparent Distress HEENT: Normal ENT Inspection Neck: Supple Respiratory: Lungs Clear Cardiovascular: Regular Rate, Rhythm Gastrointestinal: normal bowel sounds, non tender, soft Extremity: No Calf Tenderness, No Pedal Edema Neurologic/Psychiatric: Alert, Oriented x3 Results Lab Laboratory Tests 12/17/18 07:47: White Blood Count 14.3H, Red Blood Count 4.07L, Hemoglobin 11.6L, Hematocrit 35L , Mean Corpuscular Volume 87, Mean Corpuscular Hemoglobin 29, Mean Corpuscular Hemoglobin Concent 33, Red Cell Distribution Width 14.4, Platelet Count 253, Mean Platelet Volume 9.6, Neutrophils (%) (Auto) 89H, Lymphocytes (%) (Auto) 5L , Monocytes (%) (Auto) 7, Eosinophils (%) (Auto) 0, Basophils (%) (Auto) 0, Neutrophils # (Auto) 12.6H, Lymphocytes # (Auto) 0.7L, Monocytes # (Auto) 0.9, Eosinophils # (Auto) 0.0, Basophils # (Auto) 0.0, Neutrophils % (Manual) 86, Lymphocytes % (Manual) 5, Monocytes % (Manual) 7, Eosinophils % (Manual) 0, Basophils % (Manual) 0, Band Neutrophils 2, Blood Morphology Comment NORMAL, Sodium Level 137, Potassium Level 4.2, Chloride Level 101, Carbon Dioxide Level 23, Anion Gap 13, Blood Urea Nitrogen 26H, Creatinine 1.13, Estimat Glomerular Filtration Rate > 60, BUN/Creatinine Ratio 23, Glucose Level 255H, Lactic Acid Level 3.13*H, Calcium Level 9.5, Phosphorus Level 3.7, Magnesium Level 2.5H, B- Type Natriuretic Peptide 151.2H 12/17/18 09:47: Lactic Acid Level 2.70*H Microbiology 12/15/18 Blood Culture - Preliminary, Resulted No growth 12/15/18 Gram Stain - Final, Complete 12/15/18 Sputum Culture - Final, Complete Usual upper respiratory praful 12/15/18 Urine Culture - Final, Complete NO GROWTH Assessment/Plan Assessment/Plan Assess & Plan/Chief Complaint 1. Acute on Chronic Respiratory Failure--on oxygen via NC 2. Acute Exacerbation of COPD--on oxygen, SVNS and prednisone, add guafenesin 3. Diabetes mellitus--insulin requiring, on accuchecks with SSI 4. Hypertension--resume home meds 5. Dehydration with metabolic acidosis--monitoring lactic acid Clinical Quality Measures DVT/VTE Risk/Contraindication: Risk Factor Score Per Nursin RFS Level Per Nursing on Admit: 4+=Very High YVETTE JACKMAN DO Dec 17, 2018 12:20
[2018-12-17] MEDS ORDERED: guaiFENesin (MUCINEX) 600 MG TAB PO NR (12:30)
[2018-12-17] MEDS ORDERED: amLODIPine 5 MG (NORVASC) TAB PO NR (12:30)
[2018-12-17] MEDS: inSUlin ASPART (NovoLOG) 1 UNIT/0.01 ML (CHARGE PER UNIT) SC SCH ×3 (13:48→20:08)
[2018-12-17 15:20] VITALS: BP 116/64
[2018-12-17] MEDS: MELATONIN 3 MG TABLET PO SCH (20:08)
[2018-12-17] MEDS: guaiFENesin (MUCINEX) 600 MG TAB PO SCH (20:08)
[2018-12-17] MEDS: diphenhydrAMINE 25 MG TAB (BENADRYL) PO PRN (20:08)
--- NOTE | 2018-12-17 22:15 | NUR ---
[facility] notified this RN that the patients spit his pills out in the toilet. When patient was given the medication, patient took a drink of water and stated that his "pills went down". Patient did admit to spitting pills into the toilet. This RN did not visualize pills in the toilet so the eMAR will not be changed because it is unclear which pills were spit out.
[2018-12-18 00:05] VITALS: BP 117/55
[2018-12-18 06:02] LABS: BASOPHILS % (AUTO) 0 % (0-10); EOSINOPHILS % (AUTO) 0 % (0-10); HEMATOCRIT 32 % (40-54); HEMOGLOBIN 10.2 G/DL (13.3-17.7); LYMPHOCYTES # (AUTO) 0.9 X 10^3 (1.0-4.0); LYMPHOCYTES % (AUTO) 9 % (12-44); MEAN CORPUSCULAR HEMOGLOBIN 28 PG (25-34); MEAN CORPUSCULAR HGB CONC 32 G/DL (32-36); MEAN CORPUSCULAR VOLUME 87 FL (80-99); MEAN PLATELET VOLUME 9.7 FL (7.4-10.4); MONOCYTES # (AUTO) 1.1 X 10^3 (0.0-1.0); MONOCYTES % (AUTO) 11 % (0-12); NEUTROPHILS # (AUTO) 8.1 X 10^3 (1.8-7.8); NEUTROPHILS % (AUTO) 80 % (42-75); PLATELET COUNT 216 10^3/uL (130-400); RED CELL DISTRIBUTION WIDTH 14.2 % (10.0-14.5); WHITE BLOOD COUNT 10.1 10^3/uL (4.3-11.0)
[2018-12-18] MEDS: inSUlin ASPART (NovoLOG) 1 UNIT/0.01 ML (CHARGE PER UNIT) SC SCH ×2 (06:09→11:37)
[2018-12-18] MEDS: predniSONE 10 MG TAB PO SCH (06:10)
[2018-12-18 06:17] LABS: BUN/CREATININE RATIO 28; CALCIUM 8.8 MG/DL (8.5-10.1); CARBON DIOXIDE 23 MMOL/L (21-32); CHLORIDE 103 MMOL/L (98-107); CREATININE SERUM 1.09 MG/DL (0.60-1.30); GFR ESTIMATED > 60; GLUCOSE 167 MG/DL (70-105); MAGNESIUM 2.3 MG/DL (1.8-2.4); PHOSPHORUS 2.9 MG/DL (2.3-4.7); POTASSIUM 4.1 MMOL/L (3.6-5.0); SODIUM 137 MMOL/L (135-145)
--- NOTE | 2018-12-18 06:44 | Pulmonary Progress Note ---
Sepsis Event Evaluation Height, Weight, BMI Height: 6'0.00" Weight: 210lbs. 12.8oz. 95.900513en; 30.0 BMI Method:Stated Focused Exam Lactate Level 12/15/18 09:55: Lactic Acid Level 4.71*H 12/17/18 07:47: Lactic Acid Level 3.13*H 12/17/18 09:47: Lactic Acid Level 2.70*H Exam Exam Vital Signs Date Time Temp Pulse Resp B/P (MAP) Pulse Ox O2 Delivery O2 Flow Rate FiO2 12/18/18 02:33 94 Nasal Cannula 4.00 12/18/18 00:05 97.1 68 18 117/55 (75) 97 Nasal Cannula 4.00 12/17/18 22:32 96 Nasal Cannula 4.00 12/17/18 20:00 Nasal Cannula 4.00 12/17/18 18:37 96 Nasal Cannula 4.00 12/17/18 15:20 98.2 78 20 116/64 (81) 96 Nasal Cannula 4.00 12/17/18 15:08 94 Nasal Cannula 4.00 12/17/18 10:03 95 Nasal Cannula 4.00 12/17/18 08:00 Room Air 12/17/18 07:34 98.2 100 20 155/72 (99) 95 Nasal Cannula 4.00 12/17/18 06:51 95 Nasal Cannula 4.00 I & O 12/18/18 07:00 Intake Total 2562 ml Output Total 2300 ml Balance 262 ml Height & Weight Height: 6'0.00" Weight: 210lbs. 12.8oz. [id number]; 30.0 BMI Method:Stated General Appearance: No Apparent Distress HEENT: Normal ENT Inspection Neck: Supple Respiratory: Lungs Clear Cardiovascular: Regular Rate, Rhythm Capillary Refill: Less Than 3 Seconds Gastrointestinal: normal bowel sounds, non tender, soft Extremity: No Calf Tenderness, No Pedal Edema Neurologic/Psychiatric: Alert, Oriented x3 Skin: Warm/Dry Lymphatic: No Adenopathy Results Lab Laboratory Tests 12/17/18 07:47 12/18/18 05:45 Assessment/Plan Assessment/Plan Acute on chronic respiratory failure -BiPAP PRN -Hep lock IVF COPDAE- Pt has home oxygen -SVNS, advair - Prednisone taper. -ABG -C02 37 Will f/u with pt as out pt. PT is ok for discharge from pulmonary standpoint. RAKEL THORPE DO Dec 18, 2018 06:44
[2018-12-18] MEDS: RT-ALBUTEROL/IPRATROPIUM 3 ML (DUONEB) VIAL INH SCH ×2 (06:46→10:54)
[2018-12-18 08:00] VITALS: BP 144/65
[2018-12-18] MEDS: ASPIRIN 81 MG CHEW (CHILDREN'S ASA) PO SCH (08:32)
[2018-12-18] MEDS: guaiFENesin (MUCINEX) 600 MG TAB PO SCH (08:32)
[2018-12-18] MEDS: LOSARTAN 100 MG (COZAAR) TABLET PO SCH (08:32)
[2018-12-18] MEDS: ISOSORBIDE MONONITRATE 60 MG (IMDUR) TAB PO SCH (08:32)
[2018-12-18] MEDS: SINEMET CR 50/200 (CARBIDOPA/LEVODOPA SA) TAB PO SCH (08:32)
[2018-12-18] MEDS: PANTOPRAZOLE 40 MG (PROTONIX) TAB PO SCH (08:32)
[2018-12-18] MEDS ORDERED: amLODIPine 5 MG (NORVASC) TAB PO SCH (09:00)
[2018-12-18] MEDS ORDERED: GUAI120013 PO (12:53)
--- NOTE | 2018-12-18 12:55 | Discharge Inst-Simple/Standard ---
Discharge Inst-Standard Discharge Medications New, Converted or Re-Newed RX: Transmitted to Pharmacy Patient Instructions/Follow Up Plan of Care/Instructions/FU: Fwup in 1 week Activity as Tolerated: Yes Discharge Diet: ADA Diet, Cardiac Diet Other Inst to Patient Continuous oxygen at 2L YVETTE CONCEPCION DO Dec 18, 2018 12:55
[2018-12-18 13:15] VITALS: BP 144/65
== END 2018-12-18 13:15 | disposition home or self-care (01) | DRG 189 ==
LOC: EDUNIT# 06:22 → ER 06:23 → 4TH 09:45
PROVIDERS: ADMIT Internal Medicine; ATTEND Family Medicine
DX: J96.21 Acute and chronic respiratory failure with hypoxia (principal); J44.1 Chronic obstructive pulmonary disease with (acute) exacerbation; E87.2 Acidosis; E86.0 Dehydration; I10 Essential (primary) hypertension; E11.65 Type 2 diabetes mellitus with hyperglycemia; K30 Functional dyspepsia; G47.30 Sleep apnea, unspecified; I25.10 Atherosclerotic heart disease of native coronary artery without angina pectoris; I25.2 Old myocardial infarction; E78.00 Pure hypercholesterolemia, unspecified; K21.9 Gastro-esophageal reflux disease without esophagitis; M19.91 Primary osteoarthritis, unspecified site; F41.9 Anxiety disorder, unspecified; L57.0 Actinic keratosis; L30.9 Dermatitis, unspecified; G20 Parkinson's disease; Z79.4 Long term (current) use of insulin; Z99.81 Dependence on supplemental oxygen; Z87.891 Personal history of nicotine dependence; Z95.5 Presence of coronary angioplasty implant and graft; Z85.828 Personal history of other malignant neoplasm of skin
CPT/HCPCS: 36415; 36600; 71045; 71046; 80048; 80053; 81000; 82805; 82962; 83605; 83735; 83880; 84100; 84145; 84484; 85007; 85025; 85027; 85610; 85730; 87040; 87070; 87088; 87205; 87804; 93005; 94640; 94760; 96374; 96375

== ENCOUNTER 2018-12-19 23:39 | Emergency (ER) | payer MEDICARE ==
[~2018-12-19 23:39] MED LIST changes: +ACET-2469 PO; +CALC100T2 PO; +CODE118S4 PO; +GUAI120013 PO; +ISM60TCR PO; +MELO7.5T46 PO; +METF-478 PO; +POTA99TA17 PO; +TRAM50TA2 PO; +[UNRECOGNIZED DRUG - CODE] TP
--- NOTE | 2018-12-19 23:59 | NUR ---
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 LWBS FORM SIGNED.
== END 2018-12-19 23:59 | disposition left against medical advice (07) ==
LOC: EDUNIT# 23:39 → ER 23:41
DX: R06.02 Shortness of breath (principal)

== ENCOUNTER 2018-12-20 08:13 | Inpatient (IN) | payer MEDICARE ==
[2018-12-20] VITALS (19 sets, daily range): BP systolic 100–159; BP diastolic 49–98
[~2018-12-20] VITALS: Ht 182.9 cm; Wt 92.6 kg
[2018-12-20] MEDS ORDERED: RT-ALBUTEROL SULF 2.5 MG/3 ML PRE-MIX VIAL ONE (08:19)
[2018-12-20] MEDS ORDERED: RT-ALBUTEROL/IPRATROPIUM 3 ML (DUONEB) VIAL ONE (08:19)
[2018-12-20] MEDS ORDERED: RT-ALBUTEROL SULF 2.5 MG/3 ML PRE-MIX VIAL INH STA (08:21)
[2018-12-20] MEDS ORDERED: RT-ALBUTEROL/IPRATROPIUM 3 ML (DUONEB) VIAL INH ONE (08:30)
[2018-12-20] MEDS ORDERED: methylPREDNISolone 125 MG (Solu-MEDROL) VIAL IVP ONE (08:30)
[2018-12-20 08:53] LABS: BASOPHILS # (AUTO) 0.1 10^3/uL (0.0-0.1); BASOPHILS % (AUTO) 0 % (0-10); EOSINOPHILS # (AUTO) 0.1 10^3/uL (0.0-0.3); EOSINOPHILS % (AUTO) 0 % (0-10); HEMATOCRIT 40 % (40-54); LYMPHOCYTES # (AUTO) 0.8 X 10^3 (1.0-4.0); LYMPHOCYTES % (AUTO) 4 % (12-44); MEAN CORPUSCULAR HEMOGLOBIN 29 PG (25-34); MEAN CORPUSCULAR HGB CONC 33 G/DL (32-36); MEAN CORPUSCULAR VOLUME 87 FL (80-99); MONOCYTES # (AUTO) 1.5 X 10^3 (0.0-1.0); MONOCYTES % (AUTO) 8 % (0-12); NEUTROPHILS % (AUTO) 87 % (42-75); PLATELET COUNT 234 10^3/uL (130-400); RED CELL DISTRIBUTION WIDTH 14.4 % (10.0-14.5); WHITE BLOOD COUNT 18.4 10^3/uL (4.3-11.0)
--- NOTE | 2018-12-20 09:00 | NUR ---
I was contacted by ER ref was very upset with due to his condition and non compliance, upon arrival in room, began telling me she had gotten mad and said bad things to her , she calmed some somewhat but remained tearful, family arrived at which time she asked if I would stay with pt while she spoke with family. I remained with pt as he shared much of his life story and verbalized that he knew his condition and abilities were changing. I did observe that [facility] G[facility] was with and family. I remained with pt and validated and encouraged that he was going to need outside help and assured him that [employer] would be providing help and information.
[2018-12-20 09:04] LABS: ABG BASE EXCESS 1.5 MMOL/L (-2.5-2.5); ABG OXYGEN SATURATION 96 % (94-100); ABG PCO2 39 MMHG (35-45); ABG PH 7.43 (7.37-7.43); ABG PO2 75 MMHG (79-93); ABG TCO2 26.7 MMOL/L (21.0-31.0)
[2018-12-20 09:05] LABS: ALANINE AMINOTRANSFERASE 7 U/L (0-55); ALBUMIN 4.6 GM/DL (3.2-4.5); ALKALINE PHOSPHATASE 74 U/L (40-136); BILIRUBIN,TOTAL 0.7 MG/DL (0.1-1.0); BUN/CREATININE RATIO 22; CALCIUM 9.9 MG/DL (8.5-10.1); CARBON DIOXIDE 25 MMOL/L (21-32); CHLORIDE 99 MMOL/L (98-107); CREATININE SERUM 1.15 MG/DL (0.60-1.30); GFR ESTIMATED > 60; GLUCOSE 187 MG/DL (70-105); POTASSIUM 4.2 MMOL/L (3.6-5.0); SODIUM 139 MMOL/L (135-145); TOTAL PROTEIN 7.4 GM/DL (6.4-8.2)
[2018-12-20 09:06] LABS: ALLENS TEST YES-POS; INSPIRED O2 40%; PATIENT TEMP 97.3; VENTILATOR NO
[2018-12-20 09:38] LABS: BAND NEUTROPHILS 10 %; BASOPHILS % (MANUAL) 0 %; EOSINOPHILS % (MANUAL) 2 %; LYMPHOCYTES % (MANUAL) 5 %; MONOCYTES % (MANUAL) 8 %; MYELOCYTES % 1 %; NEUTROPHILS % (MANUAL) 74 %; RBC MORPH NORMAL
--- NOTE | 2018-12-20 09:39 | Diagnostic Imaging Report ---
INDICATION: Short of breath. Time of exam: 9:20 AM Correlation is made with prior study from 12/17/2018. The heart size is stable. Lungs appear to be fairly clear apart from minimal bibasilar subsegmental atelectasis. Pulmonary vascularity is unremarkable. No significant infiltrate, effusion or pneumothorax is seen. IMPRESSION: Stable chest. No acute feature is detected. Dictated by: Dictated on workstation # [id number]
--- NOTE | 2018-12-20 10:15 | ED Respiratory ---
General Chief Complaint: Respiratory Problems Stated Complaint: SOA Nursing Triage Note: Pt ambulatory to rm 6. Pt very short of breath and visibly struggling to breath. Pt using accessory muscles and retracting. Pt arrived on 5 L O2. Pt just discharged from [facility] on the . Pt reports being prescribed prednisone but forgot to pick prescription up. in room and very upset that pt has not been compliant. Pt verbalizes wishes to be a DNR. Pt placed onmask and 10L O2 until RT could arrive. Source: patient, family, old records Exam Limitations: no limitations History of Present Illness Date Seen by Provider: Dec 20, 2018 Time Seen by Provider: 08:15 Initial Comments This 78-year-old gentleman presents to the emergency room in respiratory distress. He is wheezing and moving very little air. He had been admitted recently for COPD exacerbation. 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 He came to the emergency room last night and checked again. However, he left before he could be seen by a physician. He has hypoxic with difficulty registering an oxygen saturation on nasal cannula. Patient has a long history of noncompliance. He is afebrile. Allergies and Home Medications Allergies Coded Allergies: hydrocodone (Verified Allergy, Unknown, NAUSEA, 12/15/18) oxycodone (Verified Allergy, Unknown, NAUSEA, 12/15/18) tramadol (Verified Allergy, Unknown, NAUSEA, 12/15/18) Home Medications Acetaminophen 500 Mg Tablet, 500-1,000 MG PO Q6H PRN for PAIN-MILD, (Reported) Albuterol Sulfate 18 Gm Hfa.aer.ad, 2 PUFF INH Q6H PRN for SHORTNESS OF BREATH, (Reported) Albuterol Sulfate 2.5 Mg/3 Ml Vial.neb, 2.5 MG NEB Q4H PRN for SHORTNESS OF BREATH, (Reported) Amlodipine Besylate 5 Mg Tablet, 5 MG PO DAILY, (Reported) Aspirin 81 Mg Tablet.dr, 81 MG PO DAILY, (Reported) Budesonide/Formoterol Fumarate 10.2 Gm Hfa.aer.ad, 2 PUFF IH BID PRN for SHORTNESS OF BREATH, (Reported) Carbidopa/Levodopa 1 Each Tablet.er, 1 TAB PO BID, (Reported) Guaifenesin 1,200 Mg Tab.er.12h, 1,200 MG PO BID Prescribed by: YVETTE BARAKAT on 12/18/18 1253 Insulin Aspart 100 Unit/1 Ml Susp, 10 UNIT SQ HS, (Reported) Isosorbide Mononitrate 60 Mg Tab, 60 MG PO DAILY, (Reported) Losartan Potassium 100 Mg Tablet, 100 MG PO DAILY, (Reported) Menthol 113.6 Gm Gel..gram., TP HS, (Reported) Pantoprazole Sodium 40 Mg Tablet.dr, 40 MG PO DAILY, (Reported) Potassium Gluconate 99 Mg Tablet, 99 MG PO DAILY, (Reported) Prednisone 20 Mg Tab, 20 MG PO DAILY, (Reported) 5 DAY SUPPLY FILLED 12-12-18 Promethazine HCl/Codeine 118 Ml Syrup, 5 ML PO Q6H PRN for COUGH, (Reported) Ropinirole HCl 4 Mg Tablet, 12 MG PO HS, (Reported) TAKES 3 (4MG) TABLETS Tramadol HCl 50 Mg Tablet, 50 MG PO TID PRN for PAIN-MODERATE, (Reported) Patient Home Medication List Home Medication List Reviewed: Yes Review of Systems Review of Systems Constitutional: no symptoms reported EENTM: no symptoms reported Respiratory: see HPI Cardiovascular: no symptoms reported Gastrointestinal: no symptoms reported Genitourinary: no symptoms reported Musculoskeletal: no symptoms reported Skin: no symptoms reported Psychiatric/Neurological: No Symptoms Reported Past Rkihbyt-Hexzyb-Dajpjz Hx Patient Social History Alcohol Use: Denies Use Number of Drinks Today: AA Alcohol Beverage of Choice: Beer Recreational Drug Use: No Smoking Status: Former Smoker Type Used: Cigars Former Smoker, Quit: May 25, 1996 2nd Hand Smoke Exposure: Yes Recent Foreign Travel: No Contact w/Someone Who Travel: No Recent Infectious Disease Expo: No Recent Hopitalizations: Yes (12/18/2018) Physical Abuse: No Sexual Abuse: No Immunizations Up To Date Tetanus Booster (TDap): Unknown PED Vaccines UTD: Yes Date of Pneumonia Vaccine: Sep 25, 2018 Date of Influenza Vaccine: Sep 25, 2018 Seasonal Allergies Seasonal Allergies: No Past Medical History Surgeries: Yes (CATARACTS, KNEE SCOPE, SKIN CANCERS REMOVED) Coronary Stent, Orthopedic Respiratory: Yes (O2 4L NC) Sleep Apnea, COPD Currently Using CPAP: Yes Currently Using BIPAP: No Cardiac: Yes (stents x5) Coronary Artery Disease, Heart Attack, High Cholesterol, Hypertension Neurological: No Reproductive Disorders: No Sexually Transmitted Disease: No HIV/AIDS: No Genitourinary: No Gastrointestinal: No Gastroesophageal Reflux, Chronic Diarrhea Musculoskeletal: Yes Arthritis, Fractures Endocrine: Yes Diabetes, Insulin dep HEENT: No Cataract Loss of Vision: Bilateral Hearing Impairment: Hard of Hearing Cancer: Yes Skin Did You Recieve Any Treatments: Yes What Type of Treatment Did You: Surgical Intervention Psychosocial: Yes Anxiety Integumentary: Yes (ACTINIC KERATOSIS, SKIN CANCER) Eczema Blood Disorders: No Adverse Reaction/Blood Tranf: No (HAS HAD BLOOD WITH NO REACTION) Family Medical History Cancer 09 BROTHER Cancer of colon 09 BROTHER Cataract 03 MOTHER Chest pain 03 MOTHER Congenital heart disease 03 FATHER Congestive heart failure 03 FATHER Family history: Cardiovascular disease 03 FATHER 03 MOTHER Family history: Diabetes mellitus 03 FATHER Family history: Gastrointestinal disease 03 MOTHER Family history: Hypertension 03 MOTHER Hearing loss 03 FATHER Heart disease 03 FATHER History of - respiratory disease 03 FATHER Kidney disease 03 FATHER Myocardial infarction 03 FATHER Stroke 03 FATHER No Family History of: Abdominal aortic aneurysm Willacy's disease Alcoholism Aphasia Cystic fibrosis Dementia Dysphagia Family history: Allergy Family history: Alzheimer's disease Family history: Arthritis Family history: Asthma Family history: Breast disease Family history: Coronary thrombosis Family history: Glaucoma Family history: Osteoporosis Family history: Thyroid disorder Headache Hereditary disease History of - anemia History of - disorder History of drug abuse Human immunodeficiency virus (HIV) seropositivity Hypercholesterolemia Infertile Malignant neoplasm of lung Parkinson's disease Prostate cancer Psychotic disorder Seizure disorder Tuberculosis Visual impairment Physical Exam Vital Signs - First Documented 12/20/18 08:13 Temp 97.3 Pulse 109 Resp 45 B/P (MAP) 144/113 (123) Pulse Ox 76 O2 Delivery Nasal Cannula O2 Flow Rate 5.00 Capillary Refill : Greater Than 3 Seconds Height: 6'0" Weight: 215lbs. 12.8oz. 97.375837zu; 30.0 BMI Method:Stated General Appearance: WD/WN, moderate distress HEENT: PERRL/EOMI, normal ENT inspection Neck: normal inspection Respiratory: respiratory distress, decreased breath sounds, wheezing Cardiovascular: regular rate, rhythm, no edema, no murmur Gastrointestinal: non tender, soft Extremities: normal inspection, no pedal edema Neurologic/Psychiatric: rubble placer II-XII nml as tested, no motor/sensory deficits, alert, normal mood/affect, oriented x 3 Skin: normal color, warm/dry Progress/Results/Core Measures Suspected Sepsis Recent Fever Within 48 Hours: No Infection Criteria Present: None New/Unexplained Altered Menta: No Sepsis Screen: No Definite Risk SIRS Temperature:97.3 Pulse: 94 Respiratory Rate: 23 Laboratory Tests 12/20/18 08:35: White Blood Count 18.4H Blood Pressure 100 /88 Mean: 123 Laboratory Tests 12/20/18 08:35: Creatinine 1.15, Platelet Count 234, Total Bilirubin 0.7 Results/Orders Lab Results Laboratory Tests Test 12/20/18 08:35 12/20/18 08:57 12/20/18 09:03 Range/Units White Blood Count 18.4 H 4.3-11.0 10^3/uL Red Blood Count 4.56 4.35-5.85 10^6/uL Hemoglobin 13.0 #L 13.3-17.7 G/DL Hematocrit 40 40-54 % Mean Corpuscular Volume 87 80-99 FL Mean Corpuscular Hemoglobin 29 25-34 PG Mean Corpuscular Hemoglobin Concent 33 32-36 G/DL Red Cell Distribution Width 14.4 10.0-14.5 % Platelet Count 234 130-400 10^3/uL Mean Platelet Volume 10.0 7.4-10.4 FL Neutrophils (%) (Auto) 87 H 42-75 % Lymphocytes (%) (Auto) 4 L 12-44 % Monocytes (%) (Auto) 8 0-12 % Eosinophils (%) (Auto) 0 0-10 % Basophils (%) (Auto) 0 0-10 % Neutrophils # (Auto) 16.0 H 1.8-7.8 X 10^3 Lymphocytes # (Auto) 0.8 L 1.0-4.0 X 10^3 Monocytes # (Auto) 1.5 H 0.0-1.0 X 10^3 Eosinophils # (Auto) 0.1 0.0-0.3 10^3/uL Basophils # (Auto) 0.1 0.0-0.1 10^3/uL Neutrophils % (Manual) 74 % Lymphocytes % (Manual) 5 % Monocytes % (Manual) 8 % Eosinophils % (Manual) 2 % Basophils % (Manual) 0 % Myelocytes % 1 % Band Neutrophils 10 % Blood Morphology Comment NORMAL Sodium Level 139 135-145 MMOL/L Potassium Level 4.2 3.6-5.0 MMOL/L Chloride Level 99 98-107 MMOL/L Carbon Dioxide Level 25 21-32 MMOL/L Anion Gap 15 H 5-14 MMOL/L Blood Urea Nitrogen 25 H 7-18 MG/DL Creatinine 1.15 0.60-1.30 MG/DL Estimat Glomerular Filtration Rate > 60 BUN/Creatinine Ratio 22 Glucose Level 187 H 70-105 MG/DL Calcium Level 9.9 8.5-10.1 MG/DL Corrected Calcium 8.5-10.1 MG/DL Total Bilirubin 0.7 0.1-1.0 MG/DL Aspartate Amino Transf (AST/SGOT) 19 5-34 U/L Alanine Aminotransferase (ALT/SGPT) 7 0-55 U/L Alkaline Phosphatase 74 40-136 U/L Total Protein 7.4 6.4-8.2 GM/DL Albumin 4.6 H 3.2-4.5 GM/DL Blood Gas Puncture Site RT RADIAL Blood Gas Patient Temperature 97.3 Arterial Blood pH 7.43 7.37-7.43 Arterial Blood Partial Pressure CO2 39 35-45 MMHG Arterial Blood Partial Pressure O2 75 L 79-93 MMHG Arterial Blood HCO3 26 23-27 MMOL/L Arterial Blood Total CO2 26.7 21.0-31.0 MMOL/L Arterial Blood Oxygen Saturation 96 94-100 % Arterial Blood Base Excess 1.5 -2.5-2.5 MMOL/L Ahsan Test YES-POS Blood Gas Ventilator Setting NO Blood Gas Inspired Oxygen 40% C-Reactive Protein High Sensitivity 2.46 H 0.00-0.50 MG/DL B-Type Natriuretic Peptide 48.1 <100.0 PG/ML My Orders Orders - DEACON RIBEIRO MD Albuterol Pre-Mix Nebs (Rt) (Proventil (12/20/18 08:21) Albuterol/Ipra Inhalation Soln (Duoneb I (12/20/18 08:30) Svn Small Volume Nebulizer (12/20/18 08:21) Methylprednisolone Sod Succ (Solu-Medrol (12/20/18 08:30) Bipap (Bilevel) Set Up (12/20/18 08:21) Svn Small Volume Nebulizer (12/20/18 08:21) Albuterol Pre-Mix Nebs (Rt) (Proventil (12/20/18 08:19) Albuterol/Ipra Inhalation Soln (Duoneb I (12/20/18 08:19) Cbc With Automated Diff (12/20/18 08:23) Comprehensive Metabolic Panel (12/20/18 08:23) Saline Lock/Iv-Start (12/20/18 08:23) Chest 1 View, Ap/Pa Only (12/20/18 08:24) Arterial Blood Gas (12/20/18 08:47) Manual Differential (12/20/18 08:35) BNP (12/20/18 09:28) Hs C Reactive Protein (12/20/18 09:28) Medications Given in ED Vital Signs/I&O 12/20/18 12/20/18 08:13 08:37 Temp 97.3 Pulse 109 94 Resp 45 23 B/P (MAP) 144/113 (123) Pulse Ox 76 100 O2 Delivery Nasal Cannula O2 Flow Rate 5.00 40.00 Capillary Refill : Greater Than 3 Seconds Blood Pressure Mean: 123 Progress Note : Progress Note Patient had very poor air movement on assessment. He was hypoxic and was placed on an Oxymizer mask. Immediate treatment with an hour-long nebulizer and BiPAP therapy was implemented. This improved his situation tremendously. Labs and x-ray did not indicate infection. Solu-Medrol 125 mg IV was administered. Charge Entry services were called to the room to assist with who was distraught and having difficulty managing the situation and making decisions. Patient tends to defer decision-making to his yet refuses to be compliant with his therapies historically. Case was discussed with Dr. BARAKAT who agrees with admission. Dr. Chacon was consulted. Social work will be consulted. If patient is refusing to be compliant, hospice may be an alternative for him in the future. I did discuss CODE STATUS and patient wishes to be DO NOT RESUSCITATE status. Diagnostic Imaging Diagonstic Imaging: Xray Plain Films/CT/US/NM/MRI: chest Comments Chest x-ray viewed by me and report reviewed. See report below: NAME: DEVIN MORALES MED REC#: [id number] PT STATUS: ADM IN : 1940 PHYSICIAN: DEACON RIBEIRO MD ADMIT DATE: 12/20/18/ICU Signed Date of Exam: 12/20/18 CHEST 1 VIEW, AP/PA ONLY INDICATION: Short of breath. Time of exam: 9:20 AM Correlation is made with prior study from 12/17/2018. The heart size is stable. Lungs appear to be fairly clear apart from minimal bibasilar subsegmental atelectasis. Pulmonary vascularity is unremarkable. No significant infiltrate, effusion or pneumothorax is seen. IMPRESSION: Stable chest. No acute feature is detected. Dictated by: Dictated on workstation # [id number] Dict: 12/20/18 0936 Trans: 12/20/18 1500 Interpreted by: KANG SETH MD Electronically signed by: KANG SETH MD 12/20/18 1500 Departure Communication (Admissions) Time/Spoke to Admitting Phy: 10:05 Dr. Barakat Time/Spoke to Consulting Phy: 10:08 Dr. Chacon Impression Primary Impression: Respiratory failure Qualified Codes: J96.21 - Acute and chronic respiratory failure with hypoxia Additional Impression: COPD exacerbation Disposition: ADMITTED INPATIENT Condition: Improved Admissions Decision to Admit Reason: Admit from ER (General) Decision to Admit/Date: Dec 20, 2018 Time/Decision to Admit Time: 08:30 Departure-Patient Inst. Referrals: YVETTE BARAKAT DO (PCP/Family) Primary Care Physician DEACON RIBEIRO MD Dec 20, 2018 10:15
--- NOTE | 2018-12-20 11:27 | NUR ---
Upon arrival to ER, RN reported Chaplain Tavarez was in pt's room, and that pt's Beba, [id number] Catie and son Luis Felipe were in family consultation room. The family welcomed my presence with them. Beba was weeping, and she began shouting at how frustrated and angry at the pt's non-compliance with medication and 02. 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 Beba said they have moved into as many as 5 homes in a single year times, each time the pt improved the resale value before getting a new home. Beba said the pt has always been a good provider, but recently his decisions have overburdened her and the family because they are doing the things he is physically unable to do, i.e. moving furniture, painting and construction on his home projects. Pt's said she is concerned about maintaining home health or even placing the patient in a nursing facility due to his history of non-compliance. Chaplain Tavarez contacted for follow up with the family regarding resources and options for pt's care.
[2018-12-20] MEDS ORDERED: ACETAMINOPHEN 325 MG TABLET PO PRN (14:15)
[2018-12-20] MEDS ORDERED: LORazepam INJ 2 MG/ML (ATIVAN) VIAL ONE (14:18)
[2018-12-20] MEDS: LORazepam INJ 2 MG/ML (ATIVAN) VIAL IVP PRN ×2 (14:21→20:07)
--- NOTE | 2018-12-20 14:25 | History & Physicial ---
History of Present Illness History of Present Illness Reason for visit/HPI This is a 78 year old male with a known history of COPD and noncompliance who was recently discharged for exacerbation of COPD and respiratory failure. He did not get his prednisone filled and was not compliant with using his oxygen continuously or his nebulizer treatments routinely after discharge and presented to the emergency room last night due to worsening shortness of air but left before being seen. He showed up at my office this morning demanding to be seen but was noted to be in acute respiratory distress and told he needed to be evaluated in the emergency room due to impending respiratory failure. He refused an ambulance and left on his own. Thankfully, he did present to the emergency room and was given an hour long nebulizer treatment as well as IV solumedrol and placed on BIPAP. He will be admitted to the ICU. He is a DNR. A long discussion was held with the family by both Dr. Reardon and myself regarding assisted care plans. Hospice was discussed as well as in home health/ assistance. I told both the patient and his family that in order for him to remain out of the hospital he would have to be on 24hour oxygen as well as routine breathing treatments every 4hours which means he is not able to go to auctions all day long without his oxygen and missing medications and breathing treatments. Date of Admission Dec 20, 2018 at 10:11 Date Seen by a Provider: Dec 20, 2018 Time Seen by a Provider: 14:17 I consulted on this patient on 12/20/18 14:17 Attending Physician Lita Barakat DO Admitting Physician Lita Barakat DO Consult Allergies and Home Medications Allergies Coded Allergies: hydrocodone (Verified Allergy, Unknown, NAUSEA, 12/15/18) oxycodone (Verified Allergy, Unknown, NAUSEA, 12/15/18) tramadol (Verified Allergy, Unknown, NAUSEA, 12/15/18) Home Medications Acetaminophen 500 Mg Tablet, 500-1,000 MG PO Q6H PRN for PAIN-MILD, (Reported) Albuterol Sulfate 18 Gm Hfa.aer.ad, 2 PUFF INH Q6H PRN for SHORTNESS OF BREATH, (Reported) Albuterol Sulfate 2.5 Mg/3 Ml Vial.neb, 2.5 MG NEB Q4H PRN for SHORTNESS OF BREATH, (Reported) Amlodipine Besylate 5 Mg Tablet, 5 MG PO DAILY, (Reported) Aspirin 81 Mg Tablet.dr, 81 MG PO DAILY, (Reported) Budesonide/Formoterol Fumarate 10.2 Gm Hfa.aer.ad, 2 PUFF IH BID PRN for SHORTNESS OF BREATH, (Reported) Carbidopa/Levodopa 1 Each Tablet.er, 1 TAB PO BID, (Reported) Guaifenesin 1,200 Mg Tab.er.12h, 1,200 MG PO BID Prescribed by: LITA BARAKAT on 12/18/18 1253 Insulin Aspart 100 Unit/1 Ml Susp, 10 UNIT SQ HS, (Reported) Isosorbide Mononitrate 60 Mg Tab, 60 MG PO DAILY, (Reported) Losartan Potassium 100 Mg Tablet, 100 MG PO DAILY, (Reported) Menthol 113.6 Gm Gel..gram., TP HS, (Reported) Pantoprazole Sodium 40 Mg Tablet.dr, 40 MG PO DAILY, (Reported) Potassium Gluconate 99 Mg Tablet, 99 MG PO DAILY, (Reported) Prednisone 20 Mg Tab, 20 MG PO DAILY, (Reported) 5 DAY SUPPLY FILLED 12-12-18 Promethazine HCl/Codeine 118 Ml Syrup, 5 ML PO Q6H PRN for COUGH, (Reported) Ropinirole HCl 4 Mg Tablet, 12 MG PO HS, (Reported) TAKES 3 (4MG) TABLETS Tramadol HCl 50 Mg Tablet, 50 MG PO TID PRN for PAIN-MODERATE, (Reported) Patient Home Medication List Home Medication List Reviewed: Yes Past Mojsopm-Zhwvkp-Krtkfz Hx Patient Social History Alcohol Use: Denies Use Number of Drinks Today: AA Alcohol Beverage of Choice: Beer Recreational Drug Use: No Smoking Status: Former Smoker Former Smoker, Quit: May 25, 1996 Type Used: Cigars 2nd Hand Smoke Exposure: Yes Recent Foreign Travel: No Contact w/other who traveled: No Recent Hopitalizations: Yes (12/18/2018) Recent Infectious Disease Expo: No Immunizations Up To Date Tetanus Booster (TDap): Unknown Pediatric: Yes Date of Pneumonia Vaccine: Sep 25, 2018 Date of Influenza Vaccine: Sep 25, 2018 Seasonal Allergies Seasonal Allergies: No Surgeries Yes (CATARACTS, KNEE SCOPE, SKIN CANCERS REMOVED) Coronary Stent, Orthopedic Respiratory Yes (O2 4L NC) COPD, Pneumonia Currently Using CPAP: Yes Currently Using BIPAP: No Cardiovascular Yes (stents x5) Coronary Artery Disease, Heart Attack, High Cholesterol, Hypertension Neurological No Reproductive System Hx Reproductive Disorders: No Sexually Transmitted Disease: No HIV/AIDS: No Genitourinary No Gastrointestinal No Gastroesophageal Reflux, Chronic Diarrhea Musculoskeletal Yes Arthritis, Fractures Endocrine History of Endocrine Disorders: Yes Endocrine Disorders: Diabetes, Insulin dep HEENT History of HEENT Disorders: No HEENT Disorders: Cataract Loss of Vision: Bilateral Hearing Impairment: Hard of Hearing Cancer Yes Skin Did You Recieve Any Treatments: Yes Type of Treatment: Surgical Intervention Psychosocial History of Psychiatric Problem: Yes Behavioral Health Disorders: Anxiety Integumentary History of Skin or Integumenta: Yes (ACTINIC KERATOSIS, SKIN CANCER) Skin/Integumentary Disorders: Eczema Blood Transfusions History of Blood Disorders: No Adverse Reaction to a Blood Tr: No (HAS HAD BLOOD WITH NO REACTION) Family Medical History Family Hx: Cancer 09 BROTHER Cancer of colon 09 BROTHER Cataract 03 MOTHER Chest pain 03 MOTHER Congenital heart disease 03 FATHER Congestive heart failure 03 FATHER Family history: Cardiovascular disease 03 FATHER 03 MOTHER Family history: Diabetes mellitus 03 FATHER Family history: Gastrointestinal disease 03 MOTHER Family history: Hypertension 03 MOTHER Hearing loss 03 FATHER Heart disease 03 FATHER History of - respiratory disease 03 FATHER Kidney disease 03 FATHER Myocardial infarction 03 FATHER Stroke 03 FATHER No Family History of: Abdominal aortic aneurysm Jae's disease Alcoholism Aphasia Cystic fibrosis Dementia Dysphagia Family history: Allergy Family history: Alzheimer's disease Family history: Arthritis Family history: Asthma Family history: Breast disease Family history: Coronary thrombosis Family history: Glaucoma Family history: Osteoporosis Family history: Thyroid disorder Headache Hereditary disease History of - anemia History of - disorder History of drug abuse Human immunodeficiency virus (HIV) seropositivity Hypercholesterolemia Infertile Malignant neoplasm of lung Parkinson's disease Prostate cancer Psychotic disorder Seizure disorder Tuberculosis Visual impairment Review of Systems Constitutional: weakness EENTM: No see HPI, No no symptoms reported, No ear discharge, No hearing loss, No ear pain, No blurred vision, No double vision, No eye pain, No tearing, No vision loss, No dental problems, No hoarseness, No mouth pain, No mouth swelling , No epistaxis, No nose congestion, No nose pain, No throat pain, No throat swelling, No other Respiratory: dyspnea on exertion, short of breath Cardiovascular: No no symptoms reported, No see HPI, No chest pain, No edema, No Hx of Intervention, No palpitations, No syncope, No vascular heart diseas, No other Gastrointestinal: No RUQ, No LUQ, No RLQ, No LLQ, No no symptoms reported, No see HPI, No abdominal pain, No constipation, No diarrhea, No dysphagia, No hematemesis, No heartburn, No jaundice, No loss of appetite, No melena, No nausea, No vomiting, No other Genitourinary: No no symptoms reported, No see HPI, No decreased output, No discharge, No dysuria, No frequency, No hematuria, No hesitancy, No incontinence , No nocturia, No pain, No other Musculoskeletal: No no symptoms reported, No see HPI, No back pain, No gout, No joint pain, No joint swelling, No muscle pain, No muscle stiffness, No muscle cramps, No muscle twitching, No muscle weakness, No neck pain, No other Skin: No no symptoms reported, No see HPI, No change in color, No change in hair/nails, No dryness, No hx of skin cancer, No lesions, No lumps, No pruritus , No rash, No other Psychiatric/Neurological: Weakness Physical Exam Vital Signs Vital Signs - First Documented 12/20/18 08:13 Temp 97.3 Pulse 109 Resp 45 B/P (MAP) 144/113 (123) Pulse Ox 76 O2 Delivery Nasal Cannula O2 Flow Rate 5.00 Capillary Refill : Greater Than 3 Seconds Height, Weight, BMI Height: 6'0" Weight: 215lbs. 12.8oz. 97.716185ds; 30.0 BMI Method:Stated General Appearance: Severe Distress (respiratory) HEENT: Normal ENT Inspection Neck: Supple Respiratory: Decreased Breath Sounds, Respiratory Distress Cardiovascular: Systolic Murmur, Gallop/S4, Tachycardia Gastrointestinal: Normal Bowel Sounds, Non Tender, Soft Rectal: Deferred Extremity: Non Tender, No Calf Tenderness, No Pedal Edema Neurologic/Psychiatric: Alert, Oriented x3, Motor Weakness Skin: Warm/Dry Comments Laboratory Tests 12/20/18 08:35: White Blood Count 18.4H, Red Blood Count 4.56, Hemoglobin 13.0#L, Hematocrit 40 , Mean Corpuscular Volume 87, Mean Corpuscular Hemoglobin 29, Mean Corpuscular Hemoglobin Concent 33, Red Cell Distribution Width 14.4, Platelet Count 234, Mean Platelet Volume 10.0, Neutrophils (%) (Auto) 87H, Lymphocytes (%) (Auto) 4L , Monocytes (%) (Auto) 8, Eosinophils (%) (Auto) 0, Basophils (%) (Auto) 0, Neutrophils # (Auto) 16.0H, Lymphocytes # (Auto) 0.8L, Monocytes # (Auto) 1.5H, Eosinophils # (Auto) 0.1, Basophils # (Auto) 0.1, Neutrophils % (Manual) 74, Lymphocytes % (Manual) 5, Monocytes % (Manual) 8, Eosinophils % (Manual) 2, Basophils % (Manual) 0, Myelocytes % 1, Band Neutrophils 10, Blood Morphology Comment NORMAL, Sodium Level 139, Potassium Level 4.2, Chloride Level 99, Carbon Dioxide Level 25, Anion Gap 15H, Blood Urea Nitrogen 25H, Creatinine 1.15 , Estimat Glomerular Filtration Rate > 60, BUN/Creatinine Ratio 22, Glucose Level 187H, Calcium Level 9.9, Corrected Calcium , Total Bilirubin 0.7, Aspartate Amino Transf (AST/SGOT) 19, Alanine Aminotransferase (ALT/SGPT) 7, Alkaline Phosphatase 74, Total Protein 7.4, Albumin 4.6H 12/20/18 08:57: Blood Gas Puncture Site RT RADIAL, Blood Gas Patient Temperature 97.3, Arterial Blood pH 7.43, Arterial Blood Partial Pressure CO2 39, Arterial Blood Partial Pressure O2 75L, Arterial Blood HCO3 26, Arterial Blood Total CO2 26.7, Arterial Blood Oxygen Saturation 96, Arterial Blood Base Excess 1.5, Ahsan Test YES-POS, Blood Gas Ventilator Setting NO, Blood Gas Inspired Oxygen 40% 12/20/18 09:03: C-Reactive Protein High Sensitivity 2.46H, B-Type Natriuretic Peptide 48.1 Assessment/Plan Assessment and Plan 1. Acute on Chronic Respiratory Failure--admit to ICU on BIPAP, consult pulmonology 2. Exacerbation of COPD--IV solumedrol, SVNs with duoneb q4hrs and q2hrs prn 3. Hypertension--start amlodopine and monitor BP 4. Restless legs--resume sinemet and requip 5. GERD--IV protonix 6. CAD--on medical therapy 7. Noncompliance causing worsening of condition as well as family discord-- director of social services, did discuss hospice, in home care, not driving, etc. Admission Diagnosis Admission Status: Inpatient Order (span 2 midnights) Reason for Inpatient Admission: Will have to be weaned from BIPAP and stable from a respiratory standpoint before discharg which will take at least 48hrs and likely more LITA BARAKAT DO Dec 20, 2018 14:25
[2018-12-20] MEDS: ENOXAPARIN 40 MG/0.4 ML (LOVENOX) SYR SC SCH (14:28)
--- NOTE | 2018-12-20 14:35 | NUR ---
PATIENT WAS RECENTLY DISCHARGED FROM THIS FACILITY, I REVIEWED THE MED REC JUST IT WAS ORDERED UPON THAT DISCHARGE. MUCINEX WAS A NEWLY PRESCRIBED MEDICATION AT THAT TIME, I VERIFIED WITH [facility] IT WAS PICKED UP. THERE WERE NO NEW ORDERS FOR PREDNISONE HOWEVER THE PATIENT HAD FILLED A 5 DAY SUPPLY ON 12-12-18, PRIOR TO HIS LAST ADMISSION THAT WAS CONTINUED AT DISCHARGE. [facility] VERIFIED THAT PRESCRIPTION WAS PICKED UP. NOTE THE FOLLOWING MEDS WERE DISCHARGED AT HIS LAST VISIT, PATIENT WAS UNAVAILABLE TO DISCUSS MEDICATION THIS VISIT BUT I DID VERIFY WITH DR. JACKMAN SHE WANTED THOSE MEDS LEFT DISCONTINUED AT THIS VISIT WELL. THE DISCONTINUED MEDS WERE THE FOLLOWING: TYLENOL PM ATORVASTATIN 40MG CALCIUM LACTATE 100MG CEFDINIR FILLED 12-09-18 MELOXICAM 7.5MG PRN METFORMIN ER 500MG 2 TABS BID
[2018-12-20] MEDS ORDERED: RT-ALBUTEROL/IPRATROPIUM 3 ML (DUONEB) VIAL INH PRN (14:45)
[2018-12-20] MEDS ORDERED: CATHETER FLUSH 10 ML SYR IV PRN (14:45)
[2018-12-20] MEDS: NS IV 1000 ML 1,000 ML IV SCH (15:18)
--- NOTE | 2018-12-20 15:56 | NUR ---
Counseling Center Director follow up. Daughter Marcy said they anticipate discussion with Social Work to discuss options adding, "and then it is up to Leandro." I encouraged the family to request a manager audit at any time of day or night for support.
[2018-12-20] MEDS: methylPREDNISolone 40 MG/ML (Solu-MEDROL) VIAL IV SCH ×2 (17:17→23:59)
[2018-12-20] MEDS: RT-ALBUTEROL/IPRATROPIUM 3 ML (DUONEB) VIAL INH SCH ×2 (19:15→22:45)
[2018-12-20] MEDS: rOPINIRole 1 MG (REQUIP) TABLET PO SCH (20:07)
[2018-12-20] MEDS: SINEMET CR 50/200 (CARBIDOPA/LEVODOPA SA) TAB PO SCH (20:07)
[2018-12-20] MEDS: CATHETER FLUSH 10 ML SYR IV SCH (20:08)
[2018-12-21] VITALS (12 sets, daily range): BP systolic 110–163; BP diastolic 57–92
[2018-12-21] MEDS: RT-ALBUTEROL/IPRATROPIUM 3 ML (DUONEB) VIAL INH SCH ×6 (02:06→22:16)
[2018-12-21] MEDS: NS IV 1000 ML 1,000 ML IV SCH (02:07)
[2018-12-21] MEDS: LORazepam INJ 2 MG/ML (ATIVAN) VIAL IVP PRN ×3 (02:08→20:47)
[2018-12-21 03:40] LABS: BASOPHILS % (AUTO) 0 % (0-10); EOSINOPHILS % (AUTO) 0 % (0-10); HEMATOCRIT 34 % (40-54); HEMOGLOBIN 11.5 G/DL (13.3-17.7); LYMPHOCYTES # (AUTO) 0.3 X 10^3 (1.0-4.0); LYMPHOCYTES % (AUTO) 3 % (12-44); MEAN CORPUSCULAR HEMOGLOBIN 29 PG (25-34); MEAN CORPUSCULAR HGB CONC 34 G/DL (32-36); MEAN CORPUSCULAR VOLUME 86 FL (80-99); MEAN PLATELET VOLUME 9.8 FL (7.4-10.4); MONOCYTES # (AUTO) 0.3 X 10^3 (0.0-1.0); MONOCYTES % (AUTO) 3 % (0-12); NEUTROPHILS % (AUTO) 94 % (42-75); PLATELET COUNT 216 10^3/uL (130-400); RED CELL DISTRIBUTION WIDTH 14.2 % (10.0-14.5); WHITE BLOOD COUNT 11.7 10^3/uL (4.3-11.0)
[2018-12-21 04:02] LABS: BUN/CREATININE RATIO 26; CARBON DIOXIDE 21 MMOL/L (21-32); CHLORIDE 102 MMOL/L (98-107); CREATININE SERUM 1.03 MG/DL (0.60-1.30); GFR ESTIMATED > 60; GLUCOSE 236 MG/DL (70-105); MAGNESIUM 2.5 MG/DL (1.8-2.4); PHOSPHORUS 3.9 MG/DL (2.3-4.7); POTASSIUM 4.4 MMOL/L (3.6-5.0); SODIUM 136 MMOL/L (135-145)
--- NOTE | 2018-12-21 05:20 | Pulmonary Consultation ---
History of Present Illness History of Present Illness Date of Consultation 12/21/18 05:15 Time Seen by Provider: 05:41 Date of Admission History of Present Illness 78yo with hx of severe oxygen dependent COPD, medical noncompliance, and multiple hospitalizations presented to ED secondary to worsening respiratory failure. Pt was recently discharged from hospital however failed to bead picker his discharge Rx at pharmacy including prednisone. Pt was given an hour long neb in ED secondary to acute respiratory distress. BiPAP was also ordered. Pt was admitted to ICU for close observation. PT is interested in hospice education. I am consulted for pulmonary/ICU management. Allergies and Home Medications Allergies Coded Allergies: hydrocodone (Verified Allergy, Unknown, NAUSEA, 12/15/18) oxycodone (Verified Allergy, Unknown, NAUSEA, 12/15/18) tramadol (Verified Allergy, Unknown, NAUSEA, 12/15/18) Home Medications Acetaminophen 500 Mg Tablet, 500-1,000 MG PO Q6H PRN for PAIN-MILD, (Reported) Albuterol Sulfate 18 Gm Hfa.aer.ad, 2 PUFF INH Q6H PRN for SHORTNESS OF BREATH, (Reported) Albuterol Sulfate 2.5 Mg/3 Ml Vial.neb, 2.5 MG NEB Q4H PRN for SHORTNESS OF BREATH, (Reported) Amlodipine Besylate 5 Mg Tablet, 5 MG PO DAILY, (Reported) Aspirin 81 Mg Tablet.dr, 81 MG PO DAILY, (Reported) Budesonide/Formoterol Fumarate 10.2 Gm Hfa.aer.ad, 2 PUFF IH BID PRN for SHORTNESS OF BREATH, (Reported) Carbidopa/Levodopa 1 Each Tablet.er, 1 TAB PO BID, (Reported) Guaifenesin 1,200 Mg Tab.er.12h, 1,200 MG PO BID Prescribed by: YVETTE JACKMAN on 12/18/18 1253 Insulin Aspart 100 Unit/1 Ml Susp, 10 UNIT SQ HS, (Reported) Isosorbide Mononitrate 60 Mg Tab, 60 MG PO DAILY, (Reported) Losartan Potassium 100 Mg Tablet, 100 MG PO DAILY, (Reported) Menthol 113.6 Gm Gel..gram., TP HS, (Reported) Pantoprazole Sodium 40 Mg Tablet.dr, 40 MG PO DAILY, (Reported) Potassium Gluconate 99 Mg Tablet, 99 MG PO DAILY, (Reported) Prednisone 20 Mg Tab, 20 MG PO DAILY, (Reported) 5 DAY SUPPLY FILLED 12-12-18 Promethazine HCl/Codeine 118 Ml Syrup, 5 ML PO Q6H PRN for COUGH, (Reported) Ropinirole HCl 4 Mg Tablet, 12 MG PO HS, (Reported) TAKES 3 (4MG) TABLETS Tramadol HCl 50 Mg Tablet, 50 MG PO TID PRN for PAIN-MODERATE, (Reported) Past Xrlfqsu-Lsgtsj-Rsooys Hx Patient Social History Alcohol Use: Denies Use Number of Drinks Today: AA Alcohol Beverage of Choice: Beer Recreational Drug Use: No Smoking Status: Former Smoker Type Used: Cigars Former Smoker, Quit: May 25, 1996 2nd Hand Smoke Exposure: Yes Recent Foreign Travel: No Contact w/Someone Who Travel: No Recent Infectious Disease Expo: No Recent Hopitalizations: Yes (12/18/2018) Physical Abuse: No Sexual Abuse: No Immunizations Up To Date Tetanus Booster (TDap): Unknown PED Vaccines UTD: Yes Date of Pneumonia Vaccine: Sep 25, 2018 Date of Influenza Vaccine: Sep 25, 2018 Seasonal Allergies Seasonal Allergies: No Past Medical History Surgeries: Yes (CATARACTS, KNEE SCOPE, SKIN CANCERS REMOVED) Coronary Stent, Orthopedic Respiratory: Yes (O2 4L NC) Sleep Apnea, COPD Currently Using CPAP: Yes Currently Using BIPAP: No Cardiac: Yes (stents x5) Coronary Artery Disease, Heart Attack, High Cholesterol, Hypertension Neurological: No Reproductive Disorders: No Sexually Transmitted Disease: No HIV/AIDS: No Genitourinary: No Gastrointestinal: No Gastroesophageal Reflux, Chronic Diarrhea Musculoskeletal: Yes Arthritis, Fractures Endocrine: Yes Diabetes, Insulin dep HEENT: No Cataract Loss of Vision: Bilateral Hearing Impairment: Hard of Hearing Cancer: Yes Skin Did You Recieve Any Treatments: Yes What Type of Treatment Did You: Surgical Intervention Psychosocial: Yes Anxiety Integumentary: Yes (ACTINIC KERATOSIS, SKIN CANCER) Eczema Blood Disorders: No Adverse Reaction/Blood Tranf: No (HAS HAD BLOOD WITH NO REACTION) Family Medical History Cancer 09 BROTHER Cancer of colon 09 BROTHER Cataract 03 MOTHER Chest pain 03 MOTHER Congenital heart disease 03 FATHER Congestive heart failure 03 FATHER Family history: Cardiovascular disease 03 FATHER 03 MOTHER Family history: Diabetes mellitus 03 FATHER Family history: Gastrointestinal disease 03 MOTHER Family history: Hypertension 03 MOTHER Hearing loss 03 FATHER Heart disease 03 FATHER History of - respiratory disease 03 FATHER Kidney disease 03 FATHER Myocardial infarction 03 FATHER Stroke 03 FATHER No Family History of: Abdominal aortic aneurysm [place]'s disease Alcoholism Aphasia Cystic fibrosis Dementia Dysphagia Family history: Allergy Family history: Alzheimer's disease Family history: Arthritis Family history: Asthma Family history: Breast disease Family history: Coronary thrombosis Family history: Glaucoma Family history: Osteoporosis Family history: Thyroid disorder Headache Hereditary disease History of - anemia History of - disorder History of drug abuse Human immunodeficiency virus (HIV) seropositivity Hypercholesterolemia Infertile Malignant neoplasm of lung Parkinson's disease Prostate cancer Psychotic disorder Seizure disorder Tuberculosis Visual impairment Review of Systems Time Seen by Provider: 06:45 Constitutional: Sweats, Weakness, Malaise; No: Fever, Chills, Other Eyes: No: Pain, Vision change, Conjunctivae inflammation, Eyelid inflammation, Other, Redness ENT: Nose congestion; No: Ear pain, Ear discharge, Nose pain, Nose discharge, Mouth pain, Mouth swelling, Throat pain, Throat swelling, Other Respiratory: Cough, Dry, Shortness of breath, SOB with excertion, Wheezing; No : Hemoptysis, Pleuritic Pain Cardiovascular: Palpitations, Paroxysmal Noc. Dyspnea, Lt Headedness; No: Chest Pain, Orthopnea, Edema, Other Gastrointestinal: No: Nausea, Vomiting, Abdominal Pain, Diarrhea, Constipation , Melena, Hematochezia, Other Genitourinary: No Dysuria, No Frequency, No Incontinence, No Hematuria, No Retention, No Other Musculoskeletal: No: other, neck pain, shoulder pain, arm pain, back pain, hand pain, leg pain, foot pain Neurological: Weakness, Confusion Sepsis Event Evaluation Height, Weight, BMI Height: 6'0.00" Weight: 206lbs. 1.0oz. 93.040324rm; 28.0 BMI Method:Stated Exam Exam Vital Signs Date Time Temp Pulse Resp B/P (MAP) Pulse Ox O2 Delivery O2 Flow Rate FiO2 12/21/18 05:00 65 25 142/61 (88) 100 Nasal Cannula 4.00 12/21/18 04:00 97.4 69 24 140/65 (90) 94 Nasal Cannula 4.00 12/21/18 03:30 98 Nasal Cannula 4.00 12/21/18 03:00 69 23 156/83 (107) 95 Nasal Cannula 4.00 12/21/18 02:06 99 Nasal Cannula 4.00 12/21/18 02:00 68 17 155/84 (107) 100 Nasal Cannula 4.00 12/21/18 01:00 81 12/21/18 01:00 76 23 138/70 (92) 94 Nasal Cannula 4.00 12/21/18 00:07 Nasal Cannula 4.00 12/21/18 00:00 79 16 163/92 (115) 99 Nasal Cannula 4.00 12/20/18 23:59 Nasal Cannula 4.00 12/20/18 23:50 98 NIV Bilevel 25 12/20/18 23:50 97.8 NIV Bilevel 25.00 12/20/18 23:00 64 17 118/49 (72) 97 NIV Bilevel 25.00 12/20/18 22:45 69 21 95 21.00 12/20/18 22:00 63 19 145/65 (91) 98 NIV Bilevel 25.00 12/20/18 21:03 NIV Bilevel 25.00 12/20/18 21:00 68 18 151/73 (99) 90 NIV Bilevel 21.00 12/20/18 20:15 95 NIV Bilevel 21 12/20/18 20:15 72 21 96 25.00 12/20/18 20:14 NIV Bilevel 21.00 12/20/18 20:14 NIV Bilevel 21.00 12/20/18 20:00 70 19 138/64 (88) 95 NIV Bilevel 25.00 12/20/18 19:15 66 22 95 30.00 12/20/18 19:00 72 12/20/18 19:00 97.8 79 22 129/57 (81) 95 NIV Bilevel 25.00 12/20/18 18:00 72 16 147/67 (93) 96 NIV Bilevel 30.00 12/20/18 17:00 67 21 152/65 (94) 99 NIV Bilevel 30.00 12/20/18 16:16 72 22 97 30.00 12/20/18 16:00 74 17 140/98 (112) 100 NIV Bilevel 30.00 12/20/18 16:00 NIV Bilevel 30 12/20/18 15:00 70 17 145/62 (89) 96 NIV Bilevel 30.00 12/20/18 14:30 75 18 138/63 (88) 95 NIV Bilevel 30.00 12/20/18 14:29 NIV Bilevel 30 3/29/19 14:15 81 14 148/70 (96) 96 NIV Bilevel 30.00 12/20/18 14:00 76 18 145/66 (92) 96 NIV Bilevel 30.00 12/20/18 13:45 98.0 12/20/18 13:45 79 15 159/84 (109) 95 NIV Bilevel 30.00 12/20/18 13:41 78 25 96 30.00 12/20/18 13:41 82 12/20/18 13:25 97.3 83 23 117/69 (85) 100 NIV Bilevel 40.00 12/20/18 08:37 94 23 100 40.00 12/20/18 08:13 97.3 109 45 144/113 (123) 76 Nasal Cannula 5.00 I & O 12/21/18 07:00 Intake Total 1340 ml Output Total 1650 ml Balance -310 ml Height & Weight Height: 6'0.00" Weight: 206lbs. 1.0oz. 93.715190cn; 28.0 BMI Method:Stated General Appearance: Severe Distress (respiratory) HEENT: Normal ENT Inspection Neck: Supple Respiratory: Decreased Breath Sounds, Respiratory Distress Cardiovascular: Systolic Murmur, Gallop/S4, Tachycardia Capillary Refill: Less Than 3 Seconds Gastrointestinal: non tender, soft Extremity: Non Tender, No Calf Tenderness, No Pedal Edema Neurologic/Psychiatric: Alert, Oriented x3, Motor Weakness Skin: Warm/Dry Results Lab Laboratory Tests 12/20/18 08:35 12/21/18 03:25 Assessment/Plan Assessment/Plan Acute on chronic respiratory failure -BiPAP PRN COPDAE -SVNS, Solumedrol HTN GERD CAD Noncompliance -Pt did not bead picker prednisone at last discharge -Consider hospice care RAKEL THORPE DO Dec 21, 2018 05:20
[2018-12-21] MEDS ORDERED: KCL 20 MEQ TAB (K-DUR) PO SCH (06:00)
[2018-12-21] MEDS ORDERED: POTASSIUM CL 10MEQ/50ML IVPB 50 ML IV SCH (06:00)
[2018-12-21] MEDS ORDERED: MAGNESIUM 1 GM/100 ML IVPB 100 ML IV SCH (06:00)
[2018-12-21] MEDS: inSUlin ASPART (NovoLOG) 1 UNIT/0.01 ML (CHARGE PER UNIT) SC SCH ×4 (06:20→20:44)
[2018-12-21] MEDS: methylPREDNISolone 40 MG/ML (Solu-MEDROL) VIAL IV SCH ×4 (06:20→23:51)
[2018-12-21] MEDS: rOPINIRole 1 MG (REQUIP) TABLET PO SCH ×3 (06:20→20:44)
[2018-12-21] MEDS: CATHETER FLUSH 10 ML SYR IV SCH ×3 (06:21→20:44)
[2018-12-21] MEDS: amLODIPine 5 MG (NORVASC) TAB PO SCH (08:49)
[2018-12-21] MEDS: SINEMET CR 50/200 (CARBIDOPA/LEVODOPA SA) TAB PO SCH ×2 (08:49→20:44)
--- NOTE | 2018-12-21 10:25 | Diagnostic Imaging Report ---
Portable chest. INDICATION: Shortness of breath. Comparison made with prior from 12/20/2018. FINDINGS: There are background features of underlying pulmonary emphysema with air trapping and diaphragmatic flattening. No new alveolar infiltrate or consolidation evident. There is no effusion. There is no pneumothorax. Heart size and mediastinal contours appear stable. The central pulmonary vascularity is unremarkable. IMPRESSION: 1. Background features of underlying COPD and emphysema with pulmonary hyperinflation. No new acute superimposed cardiopulmonary process evident. Dictated by: Dictated on workstation # [id number]
--- NOTE | 2018-12-21 12:41 | Progress Note-Hospitalist ---
Subjective HPI/CC On Admission Date Seen by Provider: Dec 21, 2018 Time Seen by Provider: 11:45 Subjective/Events-last exam Patient feels better Family at bedside Brought more meds he was taking here to hospital A lot of family discord noted Review of Systems General: Fatigue Pulmonary: Dyspnea Objective Exam Vital Signs Vital Signs Date Time Temp Pulse Resp B/P (MAP) Pulse Ox O2 Delivery O2 Flow Rate FiO2 12/21/18 11:19 Nasal Cannula 4.00 12/21/18 11:18 98.8 87 24 130/57 (81) 97 12/20/18 23:50 25 Capillary Refill : Less Than 3 Seconds General Appearance: No Apparent Distress, WD/WN, Chronically ill, Severe Distress (respiratory) HEENT: Normal ENT Inspection Neck: Supple Respiratory: Chest Non Tender, No Accessory Muscle Use, No Respiratory Distress , Decreased Breath Sounds, Wheezing Cardiovascular: Regular Rate, Rhythm, No Edema, Systolic Murmur, Gallop/S4, Tachycardia Gastrointestinal: Normal Bowel Sounds, Non Tender, Soft Rectal: Deferred Extremity: Non Tender, No Calf Tenderness, No Pedal Edema Neurologic/Psychiatric: Alert, Oriented x3, Motor Weakness Skin: Warm/Dry Results/Procedures Lab Laboratory Tests 12/21/18 03:25 Patient resulted labs reviewed. Assessment/Plan Assessment and Plan Assess & Plan/Chief Complaint Assessment per PCP: 1. Acute on Chronic Respiratory Failure--admit to ICU on BIPAP, consult pulmonology and now transferring to floor 2. Exacerbation of COPD--IV solumedrol, SVNs with duoneb q4hrs and q2hrs prn 3. Hypertension--start amlodopine and monitor BP 4. Restless legs--resume sinemet and requip 5. GERD--IV protonix 6. CAD--on medical therapy 7. Noncompliance causing worsening of condition as well as family discord-- social science manager, did discuss hospice, in home care, not driving, etc. Plan: Appreciate Dr Chacon Patient feels better Move to 4th Diagnosis/Problems Diagnosis/Problems (1) Respiratory failure Status: Acute Qualifiers: Chronicity: acute on chronic Respiratory failure complication: hypoxia Qualified Codes: J96.21 - Acute and chronic respiratory failure with hypoxia (2) COPD exacerbation Status: Chronic (3) HTN (hypertension) Status: Chronic Qualifiers: Hypertension type: essential hypertension Qualified Codes: I10 - Essential (primary) hypertension (4) Hypoxia Onset Date: 09/04/2014 Status: Chronic (5) Parkinson disease Status: Chronic (6) IDDM (insulin dependent diabetes mellitus) Status: Chronic (7) COPD (chronic obstructive pulmonary disease) Onset Date: 09/04/2014 Status: Chronic Qualifiers: COPD type: unspecified COPD Qualified Codes: J44.9 - Chronic obstructive pulmonary disease, unspecified (8) Poor prognosis Status: Chronic (9) Non-compliance Status: Chronic (10) Hyperlipemia Status: Chronic Qualifiers: Hyperlipidemia type: mixed hyperlipidemia Qualified Codes: E78.2 - Mixed hyperlipidemia (11) Hyperglycemia, drug-induced Status: Chronic Clinical Quality Measures DVT/VTE Risk/Contraindication: Risk Factor Score Per Nursin RFS Level Per Nursing on Admit: 4+=Very High ENRIQUE DUNN DO Dec 21, 2018 12:41
[2018-12-21] MEDS: ENOXAPARIN 40 MG/0.4 ML (LOVENOX) SYR SC SCH (13:26)
[2018-12-22] MEDS: RT-ALBUTEROL/IPRATROPIUM 3 ML (DUONEB) VIAL INH SCH ×4 (02:30→15:17)
[2018-12-22] MEDS: LORazepam INJ 2 MG/ML (ATIVAN) VIAL IVP PRN (02:40)
[2018-12-22 03:25] VITALS: BP 140/63
[2018-12-22 03:46] LABS: BASOPHILS % (AUTO) 0 % (0-10); EOSINOPHILS % (AUTO) 0 % (0-10); HEMATOCRIT 34 % (40-54); HEMOGLOBIN 11.1 G/DL (13.3-17.7); LYMPHOCYTES # (AUTO) 0.3 X 10^3 (1.0-4.0); LYMPHOCYTES % (AUTO) 2 % (12-44); MEAN CORPUSCULAR HEMOGLOBIN 28 PG (25-34); MEAN CORPUSCULAR HGB CONC 32 G/DL (32-36); MEAN CORPUSCULAR VOLUME 86 FL (80-99); MEAN PLATELET VOLUME 10.3 FL (7.4-10.4); MONOCYTES # (AUTO) 0.8 X 10^3 (0.0-1.0); MONOCYTES % (AUTO) 5 % (0-12); NEUTROPHILS % (AUTO) 93 % (42-75); PLATELET COUNT 216 10^3/uL (130-400); RED CELL DISTRIBUTION WIDTH 14.3 % (10.0-14.5); WHITE BLOOD COUNT 16.1 10^3/uL (4.3-11.0)
[2018-12-22 03:59] LABS: BUN/CREATININE RATIO 29; CALCIUM 8.6 MG/DL (8.5-10.1); CARBON DIOXIDE 20 MMOL/L (21-32); CHLORIDE 104 MMOL/L (98-107); CREATININE SERUM 1.08 MG/DL (0.60-1.30); GFR ESTIMATED > 60; GLUCOSE 297 MG/DL (70-105); MAGNESIUM 2.5 MG/DL (1.8-2.4); PHOSPHORUS 3.8 MG/DL (2.3-4.7); SODIUM 137 MMOL/L (135-145)
--- NOTE | 2018-12-22 05:44 | Pulmonary Progress Note ---
Subjective Time Seen by a Provider: 05:42 Subjective/Events-last exam No complications noted Sepsis Event Evaluation Height, Weight, BMI Height: 6'0.00" Weight: 204lbs. 2.0oz. 92.332316ik; 28.0 BMI Method:Stated Exam Exam Vital Signs Date Time Temp Pulse Resp B/P (MAP) Pulse Ox O2 Delivery O2 Flow Rate FiO2 12/22/18 03:25 97.7 93 19 140/63 (88) 97 Nasal Cannula 5.00 12/22/18 02:30 95 Nasal Cannula 4.00 12/21/18 23:25 98.6 86 22 124/73 (90) 95 Nasal Cannula 5.00 12/21/18 22:17 97 Nasal Cannula 4.00 12/21/18 20:05 96 Nasal Cannula 4.00 12/21/18 19:20 98.0 96 24 145/69 (94) 97 Nasal Cannula 5.00 12/21/18 19:20 96 Nasal Cannula 4.00 12/21/18 16:43 98.2 83 20 140/80 (100) 97 Nasal Cannula 4.00 12/21/18 15:17 Nasal Cannula 4.00 12/21/18 14:58 91 Nasal Cannula 4.00 12/21/18 11:19 Nasal Cannula 4.00 12/21/18 11:18 98.8 87 24 130/57 (81) 97 Nasal Cannula 4.00 12/21/18 10:49 91 Nasal Cannula 4.00 12/21/18 08:30 Nasal Cannula 4.00 12/21/18 08:25 98.4 12/21/18 07:17 98 Nasal Cannula 4.00 12/21/18 07:05 93 12/21/18 07:00 96 48 110/67 (81) 96 Nasal Cannula 4.00 12/21/18 06:00 75 26 147/63 (91) 97 Nasal Cannula 4.00 I & O 12/22/18 07:00 Intake Total 1607 ml Output Total 250 ml Balance 1357 ml Height & Weight Height: 6'0.00" Weight: 204lbs. 2.0oz. 92.937762uu; 28.0 BMI Method:Stated General Appearance: No Apparent Distress, WD/WN, Chronically ill, Severe Distress (respiratory) HEENT: Normal ENT Inspection Neck: Supple Respiratory: Chest Non Tender, No Accessory Muscle Use, No Respiratory Distress , Decreased Breath Sounds, Wheezing Cardiovascular: Regular Rate, Rhythm, No Edema, Systolic Murmur, Gallop/S4, Tachycardia Capillary Refill: Less Than 3 Seconds Gastrointestinal: non tender, soft Extremity: Non Tender, No Calf Tenderness, No Pedal Edema Neurologic/Psychiatric: Alert, Oriented x3, Motor Weakness Skin: Warm/Dry Results Lab Laboratory Tests 12/20/18 08:35 12/21/18 03:25 12/22/18 03:10 Assessment/Plan Assessment/Plan Acute on chronic respiratory failure -BiPAP PRN COPDAE -SVNS, Solumedrol - change to prednisone taper HTN GERD CAD Noncompliance -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 RAKEL THORPE DO Dec 22, 2018 05:44
[2018-12-22] MEDS: inSUlin ASPART (NovoLOG) 1 UNIT/0.01 ML (CHARGE PER UNIT) SC SCH ×3 (06:24→16:08)
[2018-12-22] MEDS: rOPINIRole 1 MG (REQUIP) TABLET PO SCH ×2 (06:24→14:00)
[2018-12-22] MEDS: methylPREDNISolone 40 MG/ML (Solu-MEDROL) VIAL IV SCH ×2 (06:24→11:04)
[2018-12-22] MEDS: CATHETER FLUSH 10 ML SYR IV SCH ×2 (06:25→11:04)
[2018-12-22 08:00] VITALS: BP 131/67
[2018-12-22] MEDS: SINEMET CR 50/200 (CARBIDOPA/LEVODOPA SA) TAB PO SCH (08:51)
[2018-12-22] MEDS: amLODIPine 5 MG (NORVASC) TAB PO SCH (08:51)
--- NOTE | 2018-12-22 10:23 | Diagnostic Imaging Report ---
INDICATION: Shortness of air, dyspnea. TECHNIQUE: Single view chest 3:26 AM. CORRELATION STUDY: 12/21/2018 FINDINGS: Lung powell hyperinflated with changes reflecting COPD. Density lateral right midlung field has developed, could reflect small amount of loculated fluid or perhaps very small area of consolidation. Lung powell otherwise stable. Heart size enlarged. Vasculature within normal limits to slightly increased from prior study. IMPRESSION: 1. New small density lateral right midlung field could reflect small amount of loculated fluid or perhaps minimal developing infiltrate. 2. Vasculature appears slightly increased from prior study. Dictated by: Dictated on workstation # [id number]
[2018-12-22 11:11] VITALS: BP 131/64
--- NOTE | 2018-12-22 13:20 | Progress Note-Hospitalist ---
Subjective HPI/CC On Admission Date Seen by Provider: Dec 22, 2018 Time Seen by Provider: 11:30 Subjective/Events-last exam Yesterday he wandered in other patient rooms in the ICU Went across to cardiac stepdown to go to the bathroom and trailed bowel incontinence the entire way on the floor Transferring to fourth floor Overall much improved breathing Disposition for primary care provider tomorrow since he did readmit so quickly due to noncompliance Review of Systems General: Fatigue Objective Exam Vital Signs Vital Signs Date Time Temp Pulse Resp B/P (MAP) Pulse Ox O2 Delivery O2 Flow Rate FiO2 12/22/18 11:11 98.4 84 20 131/64 (86) 98 Nasal Cannula 4.00 12/20/18 23:50 25 Capillary Refill : Less Than 3 Seconds General Appearance: No Apparent Distress, WD/WN, Chronically ill, Severe Distress (respiratory) HEENT: Normal ENT Inspection Neck: Supple Respiratory: Chest Non Tender, No Accessory Muscle Use, No Respiratory Distress , Decreased Breath Sounds, Wheezing Cardiovascular: Regular Rate, Rhythm, No Edema, Systolic Murmur, Gallop/S4, Tachycardia Gastrointestinal: Normal Bowel Sounds, Non Tender, Soft Rectal: Deferred Extremity: Non Tender, No Calf Tenderness, No Pedal Edema Neurologic/Psychiatric: Alert, Oriented x3, Motor Weakness Skin: Warm/Dry Results/Procedures Lab Laboratory Tests 12/22/18 03:10 Patient resulted labs reviewed. Assessment/Plan Assessment and Plan Assess & Plan/Chief Complaint Assessment per PCP: 1. Acute on Chronic Respiratory Failure--admit to ICU on BIPAP, consult pulmonology and now transferring to floor 2. Exacerbation of COPD--IV solumedrol, SVNs with duoneb q4hrs and q2hrs prn 3. Hypertension--start amlodopine and monitor BP 4. Restless legs--resume sinemet and requip 5. GERD--IV protonix 6. CAD--on medical therapy 7. Noncompliance causing worsening of condition as well as family discord-- psych social worker, did discuss hospice, in home care, not driving, etc. Plan: Appreciate Dr Chacon Patient feels better Move to 4th Diagnosis/Problems Diagnosis/Problems (1) Respiratory failure Status: Acute Qualifiers: Chronicity: acute on chronic Respiratory failure complication: hypoxia Qualified Codes: J96.21 - Acute and chronic respiratory failure with hypoxia (2) COPD exacerbation Status: Chronic (3) HTN (hypertension) Status: Chronic Qualifiers: Hypertension type: essential hypertension Qualified Codes: I10 - Essential (primary) hypertension (4) Hypoxia Onset Date: 09/04/2014 Status: Chronic (5) Parkinson disease Status: Chronic (6) IDDM (insulin dependent diabetes mellitus) Status: Chronic (7) COPD (chronic obstructive pulmonary disease) Onset Date: 09/04/2014 Status: Chronic Qualifiers: COPD type: unspecified COPD Qualified Codes: J44.9 - Chronic obstructive pulmonary disease, unspecified (8) Poor prognosis Status: Chronic (9) Non-compliance Status: Chronic (10) Hyperlipemia Status: Chronic Qualifiers: Hyperlipidemia type: mixed hyperlipidemia Qualified Codes: E78.2 - Mixed hyperlipidemia (11) Hyperglycemia, drug-induced Status: Chronic Clinical Quality Measures DVT/VTE Risk/Contraindication: Risk Factor Score Per Nursin RFS Level Per Nursing on Admit: 4+=Very High ENRIQUE DUNN DO Dec 22, 2018 13:20
[2018-12-22] MEDS: ENOXAPARIN 40 MG/0.4 ML (LOVENOX) SYR SC SCH (14:00)
--- NOTE | 2018-12-22 14:40 | NUR ---
PT TRANSFERRED TO 4TH FLOOR VIA AMBULATION W/ STAFF, FAMILY, AND PERSONAL BELONGINGS. REPORT GIVEN TO MARC DIAZ, NO QUESTIONS/CONCERNS VOICED.
[2018-12-22 14:50] VITALS: BP 160/86
[2018-12-22 15:29] VITALS: BP 141/62
--- NOTE | 2018-12-22 17:00 | NUR ---
1440- PATIENT WALKED TO ROOM 411 FROM ICU HOLDING A PIZZA HE HAD ORDERED. PATIENT GOT INTO AN PERSONAL ARGUMENT WITH HIS AROUND 1450. HIS LEFT. HE ATE THE PIZZA AND THEN ATTEMPTED TO ORDER FRUIT AND CEREAL FROM THE KITCHEN. THE KITCHEN CALLED TO REPORT THAT THE ORDER PUT HIM OVER ON HIS CARBOHYDRATES. THIS RN OKAYED THE FRUIT BUT NOT THE CEREAL (HE DID JUST EAT A MEDIUM SIZED PIZZA). HIS PREVIOUS BLOOD SUGAR WAS 335. THE PATIENT CALLED THE KITCHEN TO YELL AT THEM ABOUT NOT GETTING THE CEREAL. THE PATIENT CALLED HIS AND YELLED AT HER TO BRING HIM FOOD. WHEN THIS RN WALKED INTO THE ROOM TO GIVE HIM HIS INSULIN THE PATIENT HAD SOMEHOW GOTTEN HIS BAG OF HOME MEDICATIONS OUT OF THE LOCKED MED MANAGER CREATIVE HIS ROOM. 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 THIS RN QUESTIONED WHAT HE WAS DOING AND REMINDED HIM NOT TO TAKE ANY OF HIS OWN MEDICATION WE WERE GIVING HIM WHAT THE DOCTOR ORDERED FOR HIM TO TAKE AT THIS TIME. THE PATIENT BECAME AGITATED AND BEGAN SLAMMING HIS PILL BOTTLES BACK IN THE PLASTIC BAG. HE GRABBED THE BAG AND WOULD NOT LET THIS RN PUT THE MEDICATIONS BACK IN THE MED DRAWER. HE CALLED HIS TO COME GET THE PILLS. WHEN HIS ARRIVED THEY GOT INTO ANOTHER ARGUMENT. THE PCCT HEARD THE TELL HIM NOT TO PUSH HER. THE LEFT. THIS RN WAS ADMITTING A PATIENT IN ANOTHER ROOM AT THE TIME OF THE ARGUMENT. THE ARGUMENT WAS WITNESSED BY THE PCCT, THE AURICULAR DETOXIFICATION SPECIALIST AND EMILY KING WHO ALMOST CALLED SECURITY. THE PATIENT CALLED HIS CHILDREN TO COME GET HIM. THE PATIENT LEFT THE FLOOR WITH HIS HOME OXYGEN TANK. EMILY KING AND KELLY HOLCOMBT. WENT TO 1ST FLOOR TO TAKE OUT HIS IV AND HAVE HIM SIGN THE AMA PAPER. DR DUNN NOTIFIED.
--- NOTE | 2018-12-22 17:08 | Discharge Summary-Hospitalist ---
Diagnosis/Chief Complaint Date of Admission Dec 20, 2018 at 10:11 Date of Discharge Discharge Diagnosis (1) Respiratory failure Status: Acute (2) COPD exacerbation Status: Chronic (3) HTN (hypertension) Status: Chronic (4) Hypoxia Onset Date: 09/04/2014 Status: Chronic (5) Parkinson disease Status: Chronic (6) IDDM (insulin dependent diabetes mellitus) Status: Chronic (7) COPD (chronic obstructive pulmonary disease) Onset Date: 09/04/2014 Status: Chronic (8) Poor prognosis Status: Chronic (9) Non-compliance Status: Chronic (10) Hyperlipemia Status: Chronic (11) Hyperglycemia, drug-induced Status: Chronic Discharge Summary Discharge Physical Exam Allergies: Coded Allergies: hydrocodone (Verified Allergy, Unknown, NAUSEA, 12/15/18) oxycodone (Verified Allergy, Unknown, NAUSEA, 12/15/18) tramadol (Verified Allergy, Unknown, NAUSEA, 12/15/18) Vitals & I&Os Vital Signs Date Time Temp Pulse Resp B/P (MAP) Pulse Ox O2 Delivery O2 Flow Rate FiO2 12/22/18 15:29 97.1 83 20 141/62 (88) 96 Nasal Cannula 5.00 12/20/18 23:50 25 General Appearance: No Apparent Distress, WD/WN, Chronically ill Respiratory: Chest Non Tender, Lungs Clear, Normal Breath Sounds, No Accessory Muscle Use, No Respiratory Distress Cardiovascular: Regular Rate, Rhythm, No Edema, No Gallop, No JVD, No Murmur, Normal Peripheral Pulses Neurologic/Psychiatric: Alert, Oriented x3, No Motor/Sensory Deficits, Normal Mood/Affect Hospital Course Was the Problem List Reviewed?: Yes Hospital course: Patient had an uneventful hospital course and he was progressing and doing well but abruptly patient left AGAINST MEDICAL ADVICE he signed a paper and left with his family. Labs (last 24 hrs) Microbiology 12/20/18 MRSA Screen - Final, Complete MRSA not isolated Patient resulted labs reviewed. Pending Labs Discussion & Recommendations Discharge Planning: <30 minutes discharge planning Discharge Home Medications: Active Scripts Active Mucinex (Guaifenesin) 1,200 Mg Tab.er.12h 1,200 Mg PO BID Reported Carbidopa-Levo ER 50-200 Tab (Carbidopa/Levodopa) 1 Each Tablet.er 1 Tab PO BID Tramadol HCl 50 Mg Tablet 50 Mg PO TID PRN Prednisone 20 Mg Tab 20 Mg PO DAILY 5 Days 5 DAY SUPPLY FILLED 12-12-18 Promethazine-Codeine Syrup (Promethazine HCl/Codeine) 118 Ml Syrup 5 Ml PO Q6H PRN Torres Cool Therapy (Menthol) 113.6 Gm Gel..gram. TP HS Potassium Gluconate 595 MG (Potassium Gluconate) 99 Mg Tablet 99 Mg PO DAILY Tylenol Extra Strength (Acetaminophen) 500 Mg Tablet 500-1,000 Mg PO Q6H PRN Novolog (Insulin Aspart) 100 Unit/1 Ml Susp 10 Unit SQ HS Ropinirole HCl 4 Mg Tablet 12 Mg PO HS TAKES 3 (4MG) TABLETS Isosorbide Mononitrate ER (Isosorbide Mononitrate) 60 Mg Tab 60 Mg PO DAILY Symbicort 160-4.5 Mcg Inhaler (Budesonide/Formoterol Fumarate) 10.2 Gm Hfa.aer.ad 2 Puff IH BID PRN Albuterol Sulfate 2.5 Mg/3 Ml Vial.neb 2.5 Mg NEB Q4H PRN Pantoprazole Sodium 40 Mg Tablet.dr 40 Mg PO DAILY Amlodipine Besylate 5 Mg Tablet 5 Mg PO DAILY Losartan Potassium 100 Mg Tablet 100 Mg PO DAILY Aspir 81 (Aspirin) 81 Mg Tablet.dr 81 Mg PO DAILY Ventolin Hfa (Albuterol Sulfate) 18 Gm Hfa.aer.ad 2 Puff INH Q6H PRN Instructions to patient/family Please see electronic discharge instructions given to patient. Clinical Quality Measures DVT/VTE Risk/Contraindication: Risk Factor Score Per Nursin RFS Level Per Nursing on Admit: 4+=Very High Problem Qualifiers (1) Respiratory failure: Chronicity: acute on chronic Respiratory failure complication: hypoxia Qualified Codes: J96.21 - Acute and chronic respiratory failure with hypoxia (2) HTN (hypertension): Hypertension type: essential hypertension Qualified Codes: I10 - Essential ( primary) hypertension (3) COPD (chronic obstructive pulmonary disease): COPD type: unspecified COPD Qualified Codes: J44.9 - Chronic obstructive pulmonary disease, unspecified (4) Hyperlipemia: Hyperlipidemia type: mixed hyperlipidemia Qualified Codes: E78.2 - Mixed hyperlipidemia ENRIQUE DUNN DO Dec 22, 2018 17:08
--- NOTE | 2018-12-23 07:22 | Pulmonary Progress Note ---
Subjective Time Seen by a Provider: 07:20 Subjective/Events-last exam Pt appears to be doing better. Sepsis Event Evaluation Height, Weight, BMI Height: 6'0.00" Weight: 204lbs. 2.0oz. 92.035706hy; 28.0 BMI Method:Stated Exam Exam Vital Signs Date Time Temp Pulse Resp B/P (MAP) Pulse Ox O2 Delivery O2 Flow Rate FiO2 12/22/18 15:29 97.1 83 20 141/62 (88) 96 Nasal Cannula 5.00 12/22/18 15:17 95 Nasal Cannula 4.00 12/22/18 14:50 97.0 91 22 160/86 (110) 96 12/22/18 11:11 98.4 84 20 131/64 (86) 98 Nasal Cannula 4.00 12/22/18 10:34 96 Nasal Cannula 4.00 12/22/18 08:36 100 Nasal Cannula 4.00 12/22/18 08:00 97.5 88 20 131/67 (88) 100 Nasal Cannula 4.00 12/22/18 07:24 96 Nasal Cannula 4.00 I & O 12/23/18 07:00 Intake Total 600 ml Balance 600 ml Height & Weight Height: 6'0.00" Weight: 204lbs. 2.0oz. 92.743103he; 28.0 BMI Method:Stated General Appearance: No Apparent Distress, WD/WN, Chronically ill, Severe Distress (respiratory) HEENT: Normal ENT Inspection Neck: Supple Respiratory: Chest Non Tender, No Accessory Muscle Use, No Respiratory Distress , Decreased Breath Sounds, Wheezing Cardiovascular: Regular Rate, Rhythm, No Edema, Systolic Murmur, Gallop/S4, Tachycardia Capillary Refill: Less Than 3 Seconds Gastrointestinal: non tender, soft Extremity: Non Tender, No Calf Tenderness, No Pedal Edema Neurologic/Psychiatric: Alert, Oriented x3, Motor Weakness Skin: Warm/Dry Results Lab Laboratory Tests 12/22/18 03:10 Assessment/Plan Assessment/Plan Acute on chronic respiratory failure -BiPAP PRN COPDAE -SVNS, prednisone taper -Pt already has home oxygen HTN GERD CAD Noncompliance -Pt did not picker prednisone at last discharge -Consider hospice care Pt is interested in hospice care. RAKEL THORPE DO Dec 23, 2018 07:22
[2018-12-23] MEDS ORDERED: predniSONE 10 MG TAB PO SCH (09:00)
--- NOTE | 2018-12-23 10:34 | NUR ---
PALLIATIVE CARE RN received Hospice consult for this patient. Attempted to see patient but learned that he has left the hospital against medical advance. No visit made.
[2018-12-27] MEDS ORDERED: INSU100I29 SC (08:43)
[2018-12-27] MEDS ORDERED: BENZ100C18 PO (08:51)
[2018-12-27] MEDS ORDERED: UMEC62.5 INH (08:51)
[2018-12-27] MEDS ORDERED: METH4TAB10 PO (08:51)
[2018-12-30] MEDS ORDERED: AMOX-355 PO (11:07)
[2018-12-30] MEDS ORDERED: FLUC100T PO (11:08)
== END 2018-12-30 15:41 | disposition left against medical advice (07) | DRG 189 ==
LOC: EDUNIT# 08:13 → ER 08:15 → ICU 10:11 → 4TH 12-22 14:50
PROVIDERS: ADMIT Family Medicine; ATTEND Family Medicine
DX: J96.21 Acute and chronic respiratory failure with hypoxia (principal); J44.1 Chronic obstructive pulmonary disease with (acute) exacerbation; G47.30 Sleep apnea, unspecified; I10 Essential (primary) hypertension; I25.10 Atherosclerotic heart disease of native coronary artery without angina pectoris; E78.2 Mixed hyperlipidemia; E11.65 Type 2 diabetes mellitus with hyperglycemia; Z66 Do not resuscitate; K21.9 Gastro-esophageal reflux disease without esophagitis; F41.9 Anxiety disorder, unspecified; G25.81 Restless legs syndrome; G20 Parkinson's disease; M19.91 Primary osteoarthritis, unspecified site; L30.9 Dermatitis, unspecified; I25.2 Old myocardial infarction; Z91.19 Patient's noncompliance with other medical treatment and regimen; Z87.891 Personal history of nicotine dependence; Z79.4 Long term (current) use of insulin; Z95.5 Presence of coronary angioplasty implant and graft; Z63.8 Other specified problems related to primary support group; Z85.828 Personal history of other malignant neoplasm of skin
CPT/HCPCS: 36415; 71045; 80048; 80053; 82805; 82962; 83735; 83880; 84100; 85007; 85025; 85027; 86141; 87081; 94640; 94660; 96374

== ENCOUNTER 2018-12-23 18:22 | Emergency (ER) | payer MEDICARE ==
[~2018-12-23] VITALS: Ht 182.9 cm; Wt 97.5 kg
--- NOTE | 2018-12-23 18:39 | ED Dyspnea ---
General Stated Complaint: SOA Source of Information: Patient, Family Exam Limitations: No Limitations History of Present Illness Date Seen by Provider: Dec 23, 2018 Time Seen by Provider: 18:36 Initial Comments To ER by and son with reports of shortness of breath. Patient was admitted to the hospital for COPD exacerbation and respiratory failure over the weekend, yesterday he left AGAINST MEDICAL ADVICE after getting into an argument with his . States he was feeling fine all day today until this afternoon at which point he became more dyspneic. He wears oxygen round the clock 5 L. Timing/Duration: 4-6 Hours Severity: Moderate Activities at Onset: Activity Associated Symptoms: Cough, Wheezing Allergies and Home Medications Allergies Coded Allergies: hydrocodone (Verified Allergy, Unknown, NAUSEA, 12/15/18) oxycodone (Verified Allergy, Unknown, NAUSEA, 12/15/18) tramadol (Verified Allergy, Unknown, NAUSEA, 12/15/18) Home Medications Acetaminophen 500 Mg Tablet, 500-1,000 MG PO Q6H PRN for PAIN-MILD, (Reported) Albuterol Sulfate 18 Gm Hfa.aer.ad, 2 PUFF INH Q6H PRN for SHORTNESS OF BREATH, (Reported) Albuterol Sulfate 2.5 Mg/3 Ml Vial.neb, 2.5 MG NEB Q4H PRN for SHORTNESS OF BREATH, (Reported) Amlodipine Besylate 5 Mg Tablet, 5 MG PO DAILY, (Reported) Aspirin 81 Mg Tablet.dr, 81 MG PO DAILY, (Reported) Budesonide/Formoterol Fumarate 10.2 Gm Hfa.aer.ad, 2 PUFF IH BID PRN for SHORTNESS OF BREATH, (Reported) Carbidopa/Levodopa 1 Each Tablet.er, 1 TAB PO BID, (Reported) Guaifenesin 1,200 Mg Tab.er.12h, 1,200 MG PO BID Prescribed by: YVETTE JACKMAN on 12/18/18 1253 Insulin Aspart 100 Unit/1 Ml Susp, 10 UNIT SQ HS, (Reported) Isosorbide Mononitrate 60 Mg Tab, 60 MG PO DAILY, (Reported) Losartan Potassium 100 Mg Tablet, 100 MG PO DAILY, (Reported) Menthol 113.6 Gm Gel..gram., TP HS, (Reported) Pantoprazole Sodium 40 Mg Tablet.dr, 40 MG PO DAILY, (Reported) Potassium Gluconate 99 Mg Tablet, 99 MG PO DAILY, (Reported) Prednisone 20 Mg Tab, 20 MG PO DAILY, (Reported) 5 DAY SUPPLY FILLED 12-12-18 Promethazine HCl/Codeine 118 Ml Syrup, 5 ML PO Q6H PRN for COUGH, (Reported) Ropinirole HCl 4 Mg Tablet, 12 MG PO HS, (Reported) TAKES 3 (4MG) TABLETS Tramadol HCl 50 Mg Tablet, 50 MG PO TID PRN for PAIN-MODERATE, (Reported) Patient Home Medication List Home Medication List Reviewed: Yes Review of Systems Review of Systems Constitutional: see HPI EENTM: see HPI Respiratory: see HPI, cough Cardiovascular: no symptoms reported Genitourinary: no symptoms reported Musculoskeletal: no symptoms reported Skin: no symptoms reported Psychiatric/Neurological: No Symptoms Reported Endocrine: No Symptoms Reported Hematologic/Lymphatic: No Symptoms Reported Past Obwjteb-Dovmdr-Njjsgd Hx Patient Social History Alcohol Beverage of Choice: Beer Type Used: Cigars Former Smoker, Quit: May 25, 1996 2nd Hand Smoke Exposure: Yes Recent Foreign Travel: No Contact w/Someone Who Travel: No Recent Hopitalizations: Yes (12/18/2018) Immunizations Up To Date Tetanus Booster (TDap): Unknown PED Vaccines UTD: Yes Date of Pneumonia Vaccine: Sep 25, 2018 Date of Influenza Vaccine: Sep 25, 2018 Seasonal Allergies Seasonal Allergies: No Past Medical History Surgeries: Yes (CATARACTS, KNEE SCOPE, SKIN CANCERS REMOVED) Coronary Stent, Orthopedic Respiratory: Yes (O2 4L NC) Sleep Apnea, COPD Currently Using CPAP: Yes Currently Using BIPAP: No Cardiac: Yes (stents x5) Coronary Artery Disease, Heart Attack, High Cholesterol, Hypertension Neurological: No Reproductive Disorders: No Sexually Transmitted Disease: No HIV/AIDS: No Genitourinary: No Gastrointestinal: No Gastroesophageal Reflux, Chronic Diarrhea Musculoskeletal: Yes Arthritis, Fractures Endocrine: Yes Diabetes, Insulin dep HEENT: No Cataract Loss of Vision: Bilateral Hearing Impairment: Hard of Hearing Cancer: Yes Skin Did You Recieve Any Treatments: Yes What Type of Treatment Did You: Surgical Intervention Psychosocial: Yes Anxiety Integumentary: Yes (ACTINIC KERATOSIS, SKIN CANCER) Eczema Blood Disorders: No Adverse Reaction/Blood Tranf: No (HAS HAD BLOOD WITH NO REACTION) Family Medical History Cancer 09 BROTHER Cancer of colon 09 BROTHER Cataract 03 MOTHER Chest pain 03 MOTHER Congenital heart disease 03 FATHER Congestive heart failure 03 FATHER Family history: Cardiovascular disease 03 FATHER 03 MOTHER Family history: Diabetes mellitus 03 FATHER Family history: Gastrointestinal disease 03 MOTHER Family history: Hypertension 03 MOTHER Hearing loss 03 FATHER Heart disease 03 FATHER History of - respiratory disease 03 FATHER Kidney disease 03 FATHER Myocardial infarction 03 FATHER Stroke 03 FATHER No Family History of: Abdominal aortic aneurysm [place]'s disease Alcoholism Aphasia Cystic fibrosis Dementia Dysphagia Family history: Allergy Family history: Alzheimer's disease Family history: Arthritis Family history: Asthma Family history: Breast disease Family history: Coronary thrombosis Family history: Glaucoma Family history: Osteoporosis Family history: Thyroid disorder Headache Hereditary disease History of - anemia History of - disorder History of drug abuse Human immunodeficiency virus (HIV) seropositivity Hypercholesterolemia Infertile Malignant neoplasm of lung Parkinson's disease Prostate cancer Psychotic disorder Seizure disorder Tuberculosis Visual impairment Physical Exam Vital Signs Vital Signs - First Documented 12/23/18 12/23/18 18:30 18:49 Temp 96.7 Pulse 95 Resp 24 B/P (MAP) 151/81 (104) Pulse Ox 88 O2 Delivery Room Air O2 Flow Rate 4.00 Capillary Refill : Height, Weight, BMI Height: 6'0.00" Weight: 204lbs. 2.0oz. 92.153104mh; 28.0 BMI Method:Stated General Appearance: No Apparent Distress, WD/WN, Other (in short phrases, poor air movement on auscultation.) HEENT: PERRL/EOMI, TMs Normal Respiratory: No Accessory Muscle Use, No Respiratory Distress, Decreased Breath Sounds Cardiovascular: Regular Rate, Rhythm, Normal Peripheral Pulses Gastrointestinal: Non Tender, Soft Extremity: Normal Capillary Refill, Normal Inspection Neurologic/Psychiatric: Alert, Oriented x3 Skin: Normal Color, Warm/Dry Focused Exam Lactate Level 12/23/18 18:37: Lactic Acid Level 2.29*H Lactic Acid Level Laboratory Tests Test 12/23/18 18:37 Lactic Acid Level 2.29 MMOL/L (0.50-2.00) *H Progress/Results/Core Measures Results/Orders Lab Results Laboratory Tests Test 12/23/18 18:31 12/23/18 18:37 12/23/18 19:20 Range/Units White Blood Count 8.4 4.3-11.0 10^3/uL Red Blood Count 4.29 L 4.35-5.85 10^6/uL Hemoglobin 12.2 L 13.3-17.7 G/DL Hematocrit 37 L 40-54 % Mean Corpuscular Volume 87 80-99 FL Mean Corpuscular Hemoglobin 28 25-34 PG Mean Corpuscular Hemoglobin Concent 33 32-36 G/DL Red Cell Distribution Width 14.5 10.0-14.5 % Platelet Count 193 130-400 10^3/uL Mean Platelet Volume 9.7 7.4-10.4 FL Neutrophils (%) (Auto) 79 H 42-75 % Lymphocytes (%) (Auto) 8 L 12-44 % Monocytes (%) (Auto) 13 H 0-12 % Eosinophils (%) (Auto) 0 0-10 % Basophils (%) (Auto) 0 0-10 % Neutrophils # (Auto) 6.6 1.8-7.8 X 10^3 Lymphocytes # (Auto) 0.6 L 1.0-4.0 X 10^3 Monocytes # (Auto) 1.1 H 0.0-1.0 X 10^3 Eosinophils # (Auto) 0.0 0.0-0.3 10^3/uL Basophils # (Auto) 0.0 0.0-0.1 10^3/uL Sodium Level 139 135-145 MMOL/L Potassium Level 4.1 3.6-5.0 MMOL/L Chloride Level 105 98-107 MMOL/L Carbon Dioxide Level 22 21-32 MMOL/L Anion Gap 12 5-14 MMOL/L Blood Urea Nitrogen 31 H 7-18 MG/DL Creatinine 1.09 0.60-1.30 MG/DL Estimat Glomerular Filtration Rate > 60 BUN/Creatinine Ratio 28 Glucose Level 200 H 70-105 MG/DL Calcium Level 9.5 8.5-10.1 MG/DL Corrected Calcium 9.5 8.5-10.1 MG/DL Total Bilirubin 0.3 0.1-1.0 MG/DL Aspartate Amino Transf (AST/SGOT) 30 5-34 U/L Alanine Aminotransferase (ALT/SGPT) 63 H 0-55 U/L Alkaline Phosphatase 64 40-136 U/L Total Protein 6.6 6.4-8.2 GM/DL Albumin 4.0 3.2-4.5 GM/DL Lactic Acid Level 2.29 *H 0.50-2.00 MMOL/L Troponin I < 0.028 <0.028 NG/ML B-Type Natriuretic Peptide 380.3 H <100.0 PG/ML Blood Gas Puncture Site RIGHT RADIAL Blood Gas Patient Temperature 96.7 Arterial Blood pH 7.43 7.37-7.43 Arterial Blood Partial Pressure CO2 39 35-45 MMHG Arterial Blood Partial Pressure O2 97 H 79-93 MMHG Arterial Blood HCO3 26 23-27 MMOL/L Arterial Blood Total CO2 27.4 21.0-31.0 MMOL/L Arterial Blood Oxygen Saturation 98 94-100 % Arterial Blood Base Excess 2.0 -2.5-2.5 MMOL/L Ahsan Test POSITIVE Blood Gas Ventilator Setting YES Blood Gas Inspired Oxygen 5 My Orders Orders - TATA HERMOSILLO APRN Cbc With Automated Diff (12/23/18 18:32) Comprehensive Metabolic Panel (12/23/18 18:32) Chest 1 View, Ap/Pa Only (12/23/18 18:32) Ekg Tracing (12/23/18 18:32) Iv Heplock-Insert (Order) (12/23/18 18:32) BNP (12/23/18 18:39) Troponin I (12/23/18 18:39) Blood Culture (12/23/18 18:39) Lactic Acid Analyzer (12/23/18 18:39) Albuterol/Ipra Inhalation Soln (Duoneb I (12/23/18 19:00) Svn Small Volume Nebulizer (12/23/18 18:46) Albuterol/Ipra Inhalation Soln (Duoneb I (12/23/18 18:44) Arterial Blood Gas (12/23/18 19:21) Medications Given in ED Current Medications Medications Dose Ordered Sig/Regino Route Start Time Stop Time Status Last Admin Dose Admin Albuterol/ Ipratropium 3 ml ONCE ONCE INH 12/23/18 19:00 12/23/18 19:01 DC 12/23/18 18:49 3 ML Vital Signs/I&O 12/23/18 12/23/18 18:30 18:49 Temp 96.7 Pulse 95 Resp 24 B/P (MAP) 151/81 (104) Pulse Ox 88 97 O2 Delivery Room Air Nasal Cannula O2 Flow Rate 4.00 Departure Communication (Admissions) He remains 95% on his baseline 5 L. Sitting up on the edge of the bed laughing and joking with family. States that he is feeling "much better". States that he wants to go home. He has a box of methylprednisolone with him, he'll continue taking this. He'll follow-up with Dr. Jackman. I discussed with Dr. Jackman and she agrees. Impression Primary Impression: COPD exacerbation Disposition: 01 HOME, SELF-CARE Condition: Stable Departure-Patient Inst. Decision time for Depature: 19:35 Referrals: YVETTE JACKMAN DO (PCP/Family) Primary Care Physician Patient Instructions: Exacerbation of COPD Add. Discharge Instructions: 1. Call Dr. Jackman tomorrow to make an appointment to be seen later this week. Copy Copies To 1: YVETTE JACKMAN PETER J APRN Dec 23, 2018 18:39
[2018-12-23 18:42] LABS: BASOPHILS % (AUTO) 0 % (0-10); EOSINOPHILS % (AUTO) 0 % (0-10); HEMATOCRIT 37 % (40-54); HEMOGLOBIN 12.2 G/DL (13.3-17.7); LYMPHOCYTES # (AUTO) 0.6 X 10^3 (1.0-4.0); LYMPHOCYTES % (AUTO) 8 % (12-44); MEAN CORPUSCULAR HEMOGLOBIN 28 PG (25-34); MEAN CORPUSCULAR HGB CONC 33 G/DL (32-36); MEAN CORPUSCULAR VOLUME 87 FL (80-99); MEAN PLATELET VOLUME 9.7 FL (7.4-10.4); MONOCYTES # (AUTO) 1.1 X 10^3 (0.0-1.0); MONOCYTES % (AUTO) 13 % (0-12); NEUTROPHILS # (AUTO) 6.6 X 10^3 (1.8-7.8); NEUTROPHILS % (AUTO) 79 % (42-75); PLATELET COUNT 193 10^3/uL (130-400); RED CELL DISTRIBUTION WIDTH 14.5 % (10.0-14.5); WHITE BLOOD COUNT 8.4 10^3/uL (4.3-11.0)
[2018-12-23] MEDS ORDERED: RT-ALBUTEROL/IPRATROPIUM 3 ML (DUONEB) VIAL ONE (18:44)
[2018-12-23] MEDS ORDERED: RT-ALBUTEROL/IPRATROPIUM 3 ML (DUONEB) VIAL INH ONE (19:00)
[2018-12-23 19:02] LABS: ALANINE AMINOTRANSFERASE 63 U/L (0-55); ALKALINE PHOSPHATASE 64 U/L (40-136); BILIRUBIN,TOTAL 0.3 MG/DL (0.1-1.0); BUN/CREATININE RATIO 28; CALCIUM 9.5 MG/DL (8.5-10.1); CARBON DIOXIDE 22 MMOL/L (21-32); CHLORIDE 105 MMOL/L (98-107); CREATININE SERUM 1.09 MG/DL (0.60-1.30); GFR ESTIMATED > 60; GLUCOSE 200 MG/DL (70-105); POTASSIUM 4.1 MMOL/L (3.6-5.0); SODIUM 139 MMOL/L (135-145); TOTAL PROTEIN 6.6 GM/DL (6.4-8.2)
--- NOTE | 2018-12-23 19:18 | Diagnostic Imaging Report ---
INDICATION: Short of air Upright chest shows normal heart size and vascularity. The lungs are clear. There is no effusion or pneumothorax. There is no bony abnormality. IMPRESSION: No acute abnormality is seen with no change from 12/22/2018. Dictated by: Dictated on workstation # [id number]
[2018-12-23 19:27] LABS: ABG OXYGEN SATURATION 98 % (94-100); ABG PCO2 39 MMHG (35-45); ABG PH 7.43 (7.37-7.43); ABG PO2 97 MMHG (79-93); ABG TCO2 27.4 MMOL/L (21.0-31.0)
[2018-12-23 19:28] LABS: ALLENS TEST POSITIVE; INSPIRED O2 5; PATIENT TEMP 96.7; VENTILATOR YES
[2018-12-23 19:48] VITALS: BP 137/72
== END 2018-12-23 19:49 | disposition home or self-care (01) ==
LOC: EDUNIT# 18:22 → ER 18:24
DX: J44.1 Chronic obstructive pulmonary disease with (acute) exacerbation (principal); G47.30 Sleep apnea, unspecified; I25.10 Atherosclerotic heart disease of native coronary artery without angina pectoris; I25.2 Old myocardial infarction; E78.00 Pure hypercholesterolemia, unspecified; I10 Essential (primary) hypertension; K21.9 Gastro-esophageal reflux disease without esophagitis; E11.9 Type 2 diabetes mellitus without complications; F41.9 Anxiety disorder, unspecified; Z82.49 Family history of ischemic heart disease and other diseases of the circulatory system; Z87.19 Personal history of other diseases of the digestive system; Z88.5 Allergy status to narcotic agent; Z99.81 Dependence on supplemental oxygen; Z88.6 Allergy status to analgesic agent; Z79.82 Long term (current) use of aspirin; Z79.52 Long term (current) use of systemic steroids; Z79.4 Long term (current) use of insulin; Z87.891 Personal history of nicotine dependence; Z95.5 Presence of coronary angioplasty implant and graft; Z85.828 Personal history of other malignant neoplasm of skin; Z98.890 Other specified postprocedural states
CPT/HCPCS: 36415; 36600; 71045; 80053; 82805; 83605; 83880; 84484; 85025; 87040; 93005; 94640

== ENCOUNTER 2018-12-27 01:26 | Inpatient (IN) | payer MEDICARE | END 2018-12-30 10:45 | disposition home or self-care (01) | LOC: ER 01:26 → 4TH 03:15 | DX: J18.1 Lobar pneumonia, unspecified organism (principal); J44.0 Chronic obstructive pulmonary disease with (acute) lower respiratory infection; J44.1 Chronic obstructive pulmonary disease with (acute) exacerbation; J96.20 Acute and chronic respiratory failure, unspecified whether with hypoxia or hypercapnia; E87.2 Acidosis; Z91.19 Patient's noncompliance with other medical treatment and regimen; I25.10 Atherosclerotic heart disease of native coronary artery without angina pectoris; I25.2 Old myocardial infarction; I10 Essential (primary) hypertension; E11.40 Type 2 diabetes mellitus with diabetic neuropathy, unspecified; G25.81 Restless legs syndrome; E78.00 Pure hypercholesterolemia, unspecified; G47.30 Sleep apnea, unspecified; K21.9 Gastro-esophageal reflux disease without esophagitis; F41.9 Anxiety disorder, unspecified; M19.91 Primary osteoarthritis, unspecified site; R63.4 Abnormal weight loss; Z87.891 Personal history of nicotine dependence; Z99.81 Dependence on supplemental oxygen; Z95.5 Presence of coronary angioplasty implant and graft ==

== ENCOUNTER 2019-03-08 16:01 | Emergency (ER) | payer MEDICARE ==
[~2019-03-08] VITALS: Ht 182.9 cm; Wt 99.8 kg
[~2019-03-08 16:01] MED LIST changes: +AMOX-355 PO; +BENZ100C18 PO; +FLUC100T PO; +METH4TAB10 PO; +UMEC62.5 INH
--- NOTE | 2019-03-08 16:14 | ED Respiratory ---
General Chief Complaint: Respiratory Problems Stated Complaint: SOA,COUGH Source: patient Exam Limitations: no limitations History of Present Illness Date Seen by Provider: Mar 08, 2019 Time Seen by Provider: 16:12 Initial Comments To ER per private vehicle, by his with reports of worsening shortness of breath over the past few days significantly worse today. History of COPD, wears oxygen 5 L [id number]. Increased cough, increased shortness of breath. His home nebulizer is not helping. No fevers or chills. No chest pain. Timing/Duration: just prior to arrival Severity: moderate Associated Symptoms: cough; No fever/chills; shortness of breath, wheezing Allergies and Home Medications Allergies Coded Allergies: hydrocodone (Verified Allergy, Unknown, NAUSEA, 12/15/18) oxycodone (Verified Allergy, Unknown, NAUSEA, 12/15/18) Home Medications Acetaminophen 500 Mg Tablet, 500-1,000 MG PO Q6H PRN for PAIN-MILD, (Reported) Albuterol Sulfate 18 Gm Hfa.aer.ad, 2 PUFF INH Q6H PRN for SHORTNESS OF BREATH, (Reported) Albuterol Sulfate 2.5 Mg/3 Ml Vial.neb, 2.5 MG NEB Q4H PRN for SHORTNESS OF BREATH, (Reported) Amlodipine Besylate 5 Mg Tablet, 5 MG PO DAILY, (Reported) Amoxicillin/Potassium Clav 1 Each Tablet, 1 EACH PO BID Prescribed by: YVETTE JACKMAN on 12/30/18 110 Aspirin 81 Mg Tablet.dr, 81 MG PO DAILY, (Reported) Azithromycin 250 Mg Tablet, 250 MG PO UD TAKE 2 TABLETS ON DAY ONE THEN TAKE 1 TABLET DAILY FOR FOUR MORE DAYS Prescribed by: TATA HERMOSILLO on 03/08/19 1728 Benzonatate 100 Mg Capsule, 100 MG PO TID PRN for COUGH, (Reported) Budesonide/Formoterol Fumarate 10.2 Gm Hfa.aer.ad, 2 PUFF IH BID PRN for SHORTNESS OF BREATH, (Reported) Carbidopa/Levodopa 1 Each Tablet.er, 1 TAB PO BID, (Reported) Fluconazole 100 Mg Tablet, 100 MG PO DAILY Prescribed by: YVETTE JACKMAN on 12/30/18 1108 Guaifenesin 1,200 Mg Tab.er.12h, 1,200 MG PO BID Prescribed by: YVETTE JACKMAN on 12/18/18 1253 Insulin Aspart 100 Unit/1 Ml Susp, 10 UNIT SQ AC, (Reported) Insulin Detemir 100 Unit/1 Ml Insuln.pen, 20 UNITS SC HS, (Reported) Isosorbide Mononitrate 60 Mg Tab, 60 MG PO DAILY, (Reported) Losartan Potassium 100 Mg Tablet, 100 MG PO DAILY, (Reported) Menthol 113.6 Gm Gel..gram., TP HS, (Reported) Pantoprazole Sodium 40 Mg Tablet.dr, 40 MG PO DAILY, (Reported) Potassium Gluconate 99 Mg Tablet, 99 MG PO DAILY, (Reported) Prednisone 10 Mg Tab.ds.pk, 10 MG PO DAILY Take 6 tabs(60mg)daily,decrease by 1 tab(10MG)daily. Prescribed by: TATA HERMOSILLO on 03/08/19 1728 Ropinirole HCl 4 Mg Tablet, 12 MG PO HS, (Reported) TAKES 3 (4MG) TABLETS Tramadol HCl 50 Mg Tablet, 50 MG PO TID PRN for PAIN-MODERATE, (Reported) Umeclidinium Grethel 62.5 Mcg Blst.w.dev, 1 PUFF INH DAILY, (Reported) Patient Home Medication List Home Medication List Reviewed: Yes Review of Systems Review of Systems Constitutional: see HPI EENTM: see HPI Respiratory: see HPI, cough, dyspnea on exertion, short of breath, wheezing Cardiovascular: no symptoms reported Genitourinary: no symptoms reported Musculoskeletal: no symptoms reported Skin: no symptoms reported Psychiatric/Neurological: No Symptoms Reported Hematologic/Lymphatic: No Symptoms Reported Past Urgxlfd-Neifkv-Gxqxxr Hx Patient Social History Alcohol Use: Rarely Uses Number of Drinks Today: AA Alcohol Beverage of Choice: Beer Recreational Drug Use: No Smoking Status: Former Smoker Type Used: Cigars Former Smoker, Quit: May 25, 1996 2nd Hand Smoke Exposure: Yes Recent Foreign Travel: No Contact w/Someone Who Travel: No Recent Hopitalizations: Yes (12/18/2018) Physical Abuse: No Sexual Abuse: No Mistreated: No Fear: No Immunizations Up To Date Tetanus Booster (TDap): Unknown PED Vaccines UTD: Yes Date of Pneumonia Vaccine: Sep 25, 2018 Date of Influenza Vaccine: Sep 25, 2018 Seasonal Allergies Seasonal Allergies: No Past Medical History Surgeries: Yes (CATARACTS, KNEE SCOPE, SKIN CANCERS REMOVED) Coronary Stent, Orthopedic Respiratory: Yes (O2 4L NC) Sleep Apnea, COPD Currently Using CPAP: Yes Currently Using BIPAP: No Cardiac: Yes (stents x5) Coronary Artery Disease, Heart Attack, High Cholesterol, Hypertension Neurological: No Reproductive Disorders: No Sexually Transmitted Disease: No HIV/AIDS: No Genitourinary: No Gastrointestinal: No Gastroesophageal Reflux, Chronic Diarrhea Musculoskeletal: Yes Arthritis, Fractures Endocrine: Yes Diabetes, Insulin dep HEENT: No Cataract Loss of Vision: Bilateral Hearing Impairment: Hard of Hearing Cancer: Yes Skin Did You Recieve Any Treatments: Yes What Type of Treatment Did You: Surgical Intervention Psychosocial: Yes Anxiety Integumentary: Yes (ACTINIC KERATOSIS, SKIN CANCER) Eczema Blood Disorders: No Adverse Reaction/Blood Tranf: No (HAS HAD BLOOD WITH NO REACTION) Family Medical History Cancer 09 BROTHER Cancer of colon 09 BROTHER Cataract 03 MOTHER Chest pain 03 MOTHER Congenital heart disease 03 FATHER Congestive heart failure 03 FATHER Family history: Cardiovascular disease 03 FATHER 03 MOTHER Family history: Diabetes mellitus 03 FATHER Family history: Gastrointestinal disease 03 MOTHER Family history: Hypertension 03 MOTHER Hearing loss 03 FATHER Heart disease 03 FATHER History of - respiratory disease 03 FATHER Kidney disease 03 FATHER Myocardial infarction 03 FATHER Stroke 03 FATHER No Family History of: Abdominal aortic aneurysm Jae's disease Alcoholism Aphasia Cystic fibrosis Dementia Dysphagia Family history: Allergy Family history: Alzheimer's disease Family history: Arthritis Family history: Asthma Family history: Breast disease Family history: Coronary thrombosis Family history: Glaucoma Family history: Osteoporosis Family history: Thyroid disorder Headache Hereditary disease History of - anemia History of - disorder History of drug abuse Human immunodeficiency virus (HIV) seropositivity Hypercholesterolemia Infertile Malignant neoplasm of lung Parkinson's disease Prostate cancer Psychotic disorder Seizure disorder Tuberculosis Visual impairment Physical Exam Vital Signs - First Documented 03/08/19 16:04 Temp 98.0 Pulse 104 Resp 26 B/P (MAP) 158/60 (92) Pulse Ox 90 O2 Delivery Nasal Cannula O2 Flow Rate 5.00 Capillary Refill : Height: 6'0.00" Weight: 211lbs. 0.6oz. 95.773503av; 28.4 BMI Method:Stated General Appearance: WD/WN, no apparent distress Eyes: Bilateral Eye Normal Inspection, Bilateral Eye PERRL, Bilateral Eye EOMI HEENT: PERRL/EOMI, normal ENT inspection, TMs normal, pharynx normal Respiratory: decreased breath sounds, accessory muscle use, wheezing Cardiovascular: regular rate, rhythm, no murmur Gastrointestinal: normal bowel sounds, non tender, soft Neurologic/Psychiatric: alert, normal mood/affect, oriented x 3 Skin: normal color, warm/dry Progress/Results/Core Measures Suspected Sepsis SIRS Temperature: Pulse: Respiratory Rate: Laboratory Tests 03/08/19 16:05: White Blood Count 9.5 Blood Pressure / Mean: Laboratory Tests 03/08/19 16:05: Creatinine 1.38H, Platelet Count 244, Total Bilirubin 0.3 Results/Orders Lab Results Laboratory Tests Test 03/08/19 16:05 03/08/19 16:15 Range/Units White Blood Count 9.5 4.3-11.0 10^3/uL Red Blood Count 3.81 L 4.35-5.85 10^6/uL Hemoglobin 10.7 L 13.3-17.7 G/DL Hematocrit 33 L 40-54 % Mean Corpuscular Volume 87 80-99 FL Mean Corpuscular Hemoglobin 28 25-34 PG Mean Corpuscular Hemoglobin Concent 32 32-36 G/DL Red Cell Distribution Width 15.1 H 10.0-14.5 % Platelet Count 244 130-400 10^3/uL Mean Platelet Volume 9.0 7.4-10.4 FL Neutrophils (%) (Auto) 71 42-75 % Lymphocytes (%) (Auto) 19 12-44 % Monocytes (%) (Auto) 9 0-12 % Eosinophils (%) (Auto) 1 0-10 % Basophils (%) (Auto) 0 0-10 % Neutrophils # (Auto) 6.7 1.8-7.8 X 10^3 Lymphocytes # (Auto) 1.8 1.0-4.0 X 10^3 Monocytes # (Auto) 0.9 0.0-1.0 X 10^3 Eosinophils # (Auto) 0.1 0.0-0.3 10^3/uL Basophils # (Auto) 0.0 0.0-0.1 10^3/uL Sodium Level 140 135-145 MMOL/L Potassium Level 4.1 3.6-5.0 MMOL/L Chloride Level 105 98-107 MMOL/L Carbon Dioxide Level 23 21-32 MMOL/L Anion Gap 12 5-14 MMOL/L Blood Urea Nitrogen 20 H 7-18 MG/DL Creatinine 1.38 H 0.60-1.30 MG/DL Estimat Glomerular Filtration Rate 50 BUN/Creatinine Ratio 14 Glucose Level 162 H 70-105 MG/DL Calcium Level 9.6 8.5-10.1 MG/DL Corrected Calcium 9.2 8.5-10.1 MG/DL Total Bilirubin 0.3 0.1-1.0 MG/DL Aspartate Amino Transf (AST/SGOT) 14 5-34 U/L Alanine Aminotransferase (ALT/SGPT) 15 0-55 U/L Alkaline Phosphatase 67 40-136 U/L B-Type Natriuretic Peptide 26.3 <100.0 PG/ML Total Protein 7.3 6.4-8.2 GM/DL Albumin 4.5 3.2-4.5 GM/DL Blood Gas Puncture Site LEFT RADIAL Blood Gas Patient Temperature 98.0 Arterial Blood pH 7.41 7.37-7.43 Arterial Blood Partial Pressure CO2 38 35-45 MMHG Arterial Blood Partial Pressure O2 72 L 79-93 MMHG Arterial Blood HCO3 24 23-27 MMOL/L Arterial Blood Total CO2 25.1 21.0-31.0 MMOL/L Arterial Blood Oxygen Saturation 96 94-100 % Arterial Blood Base Excess -0.2 -2.5-2.5 MMOL/L Ahsan Test POSITIVE Blood Gas Ventilator Setting NO Blood Gas Inspired Oxygen 5 L My Orders Orders - TATA HERMOSILLO APRN Cbc With Automated Diff (03/08/19 16:06) Comprehensive Metabolic Panel (03/08/19 16:06) BNP (03/08/19 16:06) Chest 1 View, Ap/Pa Only (03/08/19 16:06) Ed Iv/Invasive Line Start (03/08/19 16:06) Bipap (Bilevel) Set Up (03/08/19 16:06) Methylprednisolone Sod Succ (Solu-Medrol (03/08/19 16:15) Albuterol/Ipra Inhalation Soln (Duoneb I (03/08/19 16:15) Albuterol Pre-Mix Nebs (Rt) (Proventil (03/08/19 16:15) Svn Small Volume Nebulizer (03/08/19 16:06) Svn Small Volume Nebulizer (03/08/19 16:06) Arterial Blood Gas (03/08/19 16:19) Lactated Ringers (Lr 1000 Ml Iv Solution (03/08/19 16:45) Fentanyl Injection (Sublimaze Injection (03/08/19 16:45) Lorazepam Injection (Ativan Injection) (03/08/19 17:15) Medications Given in ED Vital Signs/I&O 03/08/19 03/08/19 03/08/19 16:04 16:29 17:35 Temp 98.0 Pulse 104 90 Resp 26 24 B/P (MAP) 158/60 (92) 150/78 (102) Pulse Ox 90 92 95 O2 Delivery Nasal Cannula OxyMask Nasal Cannula O2 Flow Rate 5.00 8.00 5.00 03/09/19 00:00 Intake Total 500 ml Balance 500 ml Capillary Refill : Departure Communication (Admissions) Discussed CODE STATUS with the patient, states that he does want CPR if necessary, does not want intubation even if necessary because "Dr. Lainez told me I'd " 1724-patient refuses to wear BiPAP mask, does not want to be ventilated (not that he needs currently). He does state that he feels better after an hour-long treatment and he is moving more air. He has supplemental oxygen at home, he has a nebulizer at home and an adequate supply of albuterol at home. There is nothing to be gained by admitting him here that he cannot do at home. He states that he would like to go on home now, complaining of restless legs. Impression Primary Impression: COPD with exacerbation Disposition: ADMITTED INPATIENT Condition: Stable Admissions Decision to Admit Reason: Admit from ER (General) Decision to Admit/Date: Mar 08, 2019 Time/Decision to Admit Time: 16:15 Departure-Patient Inst. Decision time for Depature: 17:25 Referrals: YVETTE JACKMAN DO (PCP/Family) Primary Care Physician Patient Instructions: COPD Including Emphysema (DC) Add. Discharge Instructions: 1. Medication as directed 2. Return to ER for any worsening 3. Follow-up with your doctor next week for recheck. All discharge instructions reviewed with patient and/or family. Voiced understanding. Scripts Prednisone (Prednisone) 10 Mg Tab.ds.pk 10 MG PO DAILY, #21 EA Take 6 tabs(60mg)daily,decrease by 1 tab(10MG)daily. Prov: TATA HERMOSILLO APRN 03/08/19 Azithromycin (Azithromycin) 250 Mg Tablet 250 MG PO UD, #6 TAB TAKE 2 TABLETS ON DAY ONE THEN TAKE 1 TABLET DAILY FOR FOUR MORE DAYS Prov: TATA HERMOSILLO APRN 03/08/19 TATA HERMOSILLO APRN Mar 08, 2019 16:14
[2019-03-08] MEDS ORDERED: RT-ALBUTEROL SULF 2.5 MG/3 ML PRE-MIX VIAL INH SCH (16:15)
[2019-03-08] MEDS ORDERED: RT-ALBUTEROL/IPRATROPIUM 3 ML (DUONEB) VIAL INH ONE (16:15)
[2019-03-08] MEDS ORDERED: methylPREDNISolone 125 MG (Solu-MEDROL) VIAL IVP ONE (16:15)
[2019-03-08 16:17] LABS: BASOPHILS % (AUTO) 0 % (0-10); EOSINOPHILS # (AUTO) 0.1 10^3/uL (0.0-0.3); EOSINOPHILS % (AUTO) 1 % (0-10); HEMATOCRIT 33 % (40-54); HEMOGLOBIN 10.7 G/DL (13.3-17.7); LYMPHOCYTES # (AUTO) 1.8 X 10^3 (1.0-4.0); LYMPHOCYTES % (AUTO) 19 % (12-44); MEAN CORPUSCULAR HEMOGLOBIN 28 PG (25-34); MEAN CORPUSCULAR HGB CONC 32 G/DL (32-36); MEAN CORPUSCULAR VOLUME 87 FL (80-99); MONOCYTES # (AUTO) 0.9 X 10^3 (0.0-1.0); MONOCYTES % (AUTO) 9 % (0-12); NEUTROPHILS # (AUTO) 6.7 X 10^3 (1.8-7.8); NEUTROPHILS % (AUTO) 71 % (42-75); PLATELET COUNT 244 10^3/uL (130-400); RED CELL DISTRIBUTION WIDTH 15.1 % (10.0-14.5); WHITE BLOOD COUNT 9.5 10^3/uL (4.3-11.0)
[2019-03-08 16:24] LABS: ABG BASE EXCESS -0.2 MMOL/L (-2.5-2.5); ABG OXYGEN SATURATION 96 % (94-100); ABG PCO2 38 MMHG (35-45); ABG PH 7.41 (7.37-7.43); ABG PO2 72 MMHG (79-93); ABG TCO2 25.1 MMOL/L (21.0-31.0); ALLENS TEST POSITIVE; INSPIRED O2 5 L; VENTILATOR NO
--- NOTE | 2019-03-08 16:26 | Diagnostic Imaging Report ---
INDICATION: Shortness of air. COMPARISON: 12/27/2018. EXAMINATION: Single view of the chest was obtained. FINDINGS: COPD as a chronic finding, stable. No focal consolidation. The heart size is prominent but unchanged. No vascular congestion. No edema, pneumonia, effusion or pneumothorax. Old deformities to mid third left clavicle, chronic. IMPRESSION: Chronic changes of COPD, otherwise negative. No change from prior. Dictated by: Dictated on workstation # [id number]
[2019-03-08 16:29] LABS: ALBUMIN 4.5 GM/DL (3.2-4.5); BILIRUBIN,TOTAL 0.3 MG/DL (0.1-1.0); CALCIUM 9.6 MG/DL (8.5-10.1); CREATININE SERUM 1.38 MG/DL (0.60-1.30); POTASSIUM 4.1 MMOL/L (3.6-5.0); TOTAL PROTEIN 7.3 GM/DL (6.4-8.2)
[2019-03-08] MEDS ORDERED: fentaNYL INJECTION 100 MCG/2 ML AMP IVP PRN (16:45)
[2019-03-08] MEDS ORDERED: LACTATED RINGERS 1,000 ML IV SCH (16:45)
[2019-03-08] MEDS ORDERED: LORazepam INJ 2 MG/ML (ATIVAN) VIAL IVP PRN (17:15)
[2019-03-08] MEDS ORDERED: PRED10TA22 PO (17:28)
[2019-03-08] MEDS ORDERED: AZIT250T12 PO (17:28)
[2019-03-08 17:35] VITALS: BP 150/78
== END 2019-03-08 17:35 | disposition other institution (70) ==
LOC: EDUNIT# 16:01 → ER 16:02
DX: J44.1 Chronic obstructive pulmonary disease with (acute) exacerbation (principal); I10 Essential (primary) hypertension; E78.00 Pure hypercholesterolemia, unspecified; I25.10 Atherosclerotic heart disease of native coronary artery without angina pectoris; I25.2 Old myocardial infarction; K21.9 Gastro-esophageal reflux disease without esophagitis; E11.9 Type 2 diabetes mellitus without complications; F41.9 Anxiety disorder, unspecified; Z95.5 Presence of coronary angioplasty implant and graft; Z85.828 Personal history of other malignant neoplasm of skin; Z99.81 Dependence on supplemental oxygen; Z88.5 Allergy status to narcotic agent; Z79.82 Long term (current) use of aspirin; Z79.4 Long term (current) use of insulin; Z79.52 Long term (current) use of systemic steroids; Z87.891 Personal history of nicotine dependence; Z80.0 Family history of malignant neoplasm of digestive organs; Z82.49 Family history of ischemic heart disease and other diseases of the circulatory system; Z83.3 Family history of diabetes mellitus
CPT/HCPCS: 36415; 71045; 80053; 82805; 83880; 85025; 94640; 94644; 96361; 96374; 96375

== ENCOUNTER 2019-03-24 13:48 | Inpatient (IN) | payer MEDICARE ==
[~2019-03-24] VITALS: Ht 182.9 cm; Wt 92.8 kg
[~2019-03-24 13:48] MED LIST changes: -GUAI600T43 PO; -IBUP-2055 PO; -LOPE2TAB34 PO; -MAGN400T39 PO; -MECL12.579 PO; -NYST1000 PO; -TRAZ150T72 PO
--- NOTE | 2019-03-24 14:20 | NUR ---
PT DIRECT ADMIT TO ROOM 425. AMBULATED TO ROOM WITH AT SIDE. 95% ON RA. PT REPORTS WEARING 3L NC CONTINUOUS AT HOME AND CPAP AT NIGHT. 2L NC APPLIED. PT SHORT OF BREATH WITH EXERTION. DENIES ANY PAIN. ORIENTED PT TO ROOM, CALL LIGHT AND MEAL TIMES. PT REQUESTING SHOWER, WILL APPLY TELE MONITOR WHEN OUT OF SHOWER.
[2019-03-24] MEDS ORDERED: PATIENT MAY USE OWN MEDS, ALL PO SCH (14:30)
--- NOTE | 2019-03-24 14:35 | NUR ---
TELE MONITOR ON PATIENT
[2019-03-24] MEDS ORDERED: LORazepam INJ 2 MG/ML (ATIVAN) VIAL IVP PRN (14:45)
[2019-03-24] MEDS ORDERED: inSUlin ASPART (NovoLOG) 1 UNIT/0.01 ML (CHARGE PER UNIT) SC SCH (14:45)
--- NOTE | 2019-03-24 15:21 | Diagnostic Imaging Report ---
PATIENT HISTORY: Shortness of air. TECHNIQUE: Single frontal view of the chest. COMPARISON: 03/08/2019 FINDINGS: Lung volumes are large. No focal consolidation is seen. There is no pleural effusion or pneumothorax. The cardiac silhouette is normal in size and contour. There is deformity of the left clavicle from remote trauma. IMPRESSION: Large lung volumes with no acute pulmonary abnormality seen. Dictated by: Dictated on workstation # [id number]
[2019-03-24] MEDS: methylPREDNISolone 125 MG (Solu-MEDROL) VIAL IV SCH ×2 (15:22→21:28)
--- NOTE | 2019-03-24 15:29 | Pulmonary Consultation ---
History of Present Illness History of Present Illness Date of Consultation 03/24/19 15:28 Time Seen by Provider: 15:35 Date of Admission History of Present Illness 78yo with hx of multiple hospitalizations, medical noncompliance, severe COPD is directly admitted from Dr. Barakat's office secondary to worsening SOB, and dizziness. Allergies and Home Medications Allergies Coded Allergies: hydrocodone (Verified Allergy, Unknown, NAUSEA, 12/15/18) oxycodone (Verified Allergy, Unknown, NAUSEA, 12/15/18) Home Medications Acetaminophen 500 Mg Tablet, 500-1,000 MG PO Q6H PRN for PAIN-MILD, (Reported) Albuterol Sulfate 18 Gm Hfa.aer.ad, 2 PUFF INH Q6H PRN for SHORTNESS OF BREATH, (Reported) Albuterol Sulfate 2.5 Mg/3 Ml Vial.neb, 2.5 MG NEB Q4H PRN for SHORTNESS OF BREATH, (Reported) Amlodipine Besylate 5 Mg Tablet, 5 MG PO DAILY, (Reported) Amoxicillin/Potassium Clav 1 Each Tablet, 1 EACH PO BID Prescribed by: YVETTE BARAKAT on 12/30/18 1107 Aspirin 81 Mg Tablet.dr, 81 MG PO DAILY, (Reported) Azithromycin 250 Mg Tablet, 250 MG PO UD TAKE 2 TABLETS ON DAY ONE THEN TAKE 1 TABLET DAILY FOR FOUR MORE DAYS Prescribed by: TATA HERMOSILLO on 03/08/19 1728 Benzonatate 100 Mg Capsule, 100 MG PO TID PRN for COUGH, (Reported) Budesonide/Formoterol Fumarate 10.2 Gm Hfa.aer.ad, 2 PUFF IH BID PRN for SHORTNESS OF BREATH, (Reported) Carbidopa/Levodopa 1 Each Tablet.er, 1 TAB PO BID, (Reported) Fluconazole 100 Mg Tablet, 100 MG PO DAILY Prescribed by: YVETTE BARAKAT on 12/30/18 1108 Guaifenesin 1,200 Mg Tab.er.12h, 1,200 MG PO BID Prescribed by: YVETTE BARAKAT on 12/18/18 1253 Insulin Aspart 100 Unit/1 Ml Susp, 10 UNIT SQ AC, (Reported) Insulin Detemir 100 Unit/1 Ml Insuln.pen, 20 UNITS SC HS, (Reported) Isosorbide Mononitrate 60 Mg Tab, 60 MG PO DAILY, (Reported) Losartan Potassium 100 Mg Tablet, 100 MG PO DAILY, (Reported) Menthol 113.6 Gm Gel..gram., TP HS, (Reported) Pantoprazole Sodium 40 Mg Tablet.dr, 40 MG PO DAILY, (Reported) Potassium Gluconate 99 Mg Tablet, 99 MG PO DAILY, (Reported) Prednisone 10 Mg Tab.ds.pk, 10 MG PO DAILY Take 6 tabs(60mg)daily,decrease by 1 tab(10MG)daily. Prescribed by: TATA HERMOSILLO on 03/08/19 1728 Ropinirole HCl 4 Mg Tablet, 12 MG PO HS, (Reported) TAKES 3 (4MG) TABLETS Tramadol HCl 50 Mg Tablet, 50 MG PO TID PRN for PAIN-MODERATE, (Reported) Umeclidinium [place] 62.5 Mcg Blst.w.dev, 1 PUFF INH DAILY, (Reported) Past Qmfagee-Enrpxy-Mmxirv Hx Patient Social History Alcohol Beverage of Choice: Beer Type Used: Cigars Former Smoker, Quit: May 25, 1996 2nd Hand Smoke Exposure: Yes Recent Hopitalizations: Yes (12/18/2018) Immunizations Up To Date Tetanus Booster (TDap): Unknown PED Vaccines UTD: Yes Date of Pneumonia Vaccine: Sep 25, 2018 Date of Influenza Vaccine: Sep 25, 2018 Seasonal Allergies Seasonal Allergies: No Past Medical History Surgeries: Yes (CATARACTS, KNEE SCOPE, SKIN CANCERS REMOVED) Coronary Stent, Orthopedic Respiratory: Yes (O2 4L NC) Sleep Apnea, COPD Currently Using CPAP: Yes Currently Using BIPAP: No Cardiac: Yes (stents x5) Coronary Artery Disease, Heart Attack, High Cholesterol, Hypertension Neurological: No Reproductive Disorders: No Sexually Transmitted Disease: No HIV/AIDS: No Genitourinary: No Gastrointestinal: No Gastroesophageal Reflux, Chronic Diarrhea Musculoskeletal: Yes Arthritis, Fractures Endocrine: Yes Diabetes, Insulin dep HEENT: No Cataract Loss of Vision: Bilateral Hearing Impairment: Hard of Hearing Cancer: Yes Skin Did You Recieve Any Treatments: Yes What Type of Treatment Did You: Surgical Intervention Psychosocial: Yes Anxiety Integumentary: Yes (ACTINIC KERATOSIS, SKIN CANCER) Eczema Blood Disorders: No Adverse Reaction/Blood Tranf: No (HAS HAD BLOOD WITH NO REACTION) Family Medical History Cancer 09 BROTHER Cancer of colon 09 BROTHER Cataract 03 MOTHER Chest pain 03 MOTHER Congenital heart disease 03 FATHER Congestive heart failure 03 FATHER Family history: Cardiovascular disease 03 FATHER 03 MOTHER Family history: Diabetes mellitus 03 FATHER Family history: Gastrointestinal disease 03 MOTHER Family history: Hypertension 03 MOTHER Hearing loss 03 FATHER Heart disease 03 FATHER History of - respiratory disease 03 FATHER Kidney disease 03 FATHER Myocardial infarction 03 FATHER Stroke 03 FATHER No Family History of: Abdominal aortic aneurysm Jae's disease Alcoholism Aphasia Cystic fibrosis Dementia Dysphagia Family history: Allergy Family history: Alzheimer's disease Family history: Arthritis Family history: Asthma Family history: Breast disease Family history: Coronary thrombosis Family history: Glaucoma Family history: Osteoporosis Family history: Thyroid disorder Headache Hereditary disease History of - anemia History of - disorder History of drug abuse Human immunodeficiency virus (HIV) seropositivity Hypercholesterolemia Infertile Malignant neoplasm of lung Parkinson's disease Prostate cancer Psychotic disorder Seizure disorder Tuberculosis Visual impairment Sepsis Event Evaluation Height, Weight, BMI Height: 6'0.00" Weight: 220lbs. 0.6oz. 99.876933ib; 28.4 BMI Method:Stated Exam Exam Height & Weight Height: 6'0.00" Weight: 220lbs. 0.6oz. 99.641089uh; 28.4 BMI Method:Stated Assessment/Plan Assessment/Plan Acute on chronic respiratory failure -BiPAP PRN -Oxygen -CXR reviewed -Check labs and ABG COPDAE -SVNS, Advair Solumedrol -Pt already has home oxygen Dizziness - probably secondary to hypoxia -Oxygen -Monitor Allergic rhinitis -Add Singulair, Claritin HTN GERD CAD Noncompliance with multiple hospitalizations RAKEL THORPE DO Mar 24, 2019 15:29
[2019-03-24 15:43] LABS: HEMOGLOBIN 10.7 G/DL (13.3-17.7); MEAN PLATELET VOLUME 9.4 FL (7.4-10.4); RED CELL DISTRIBUTION WIDTH 14.9 % (10.0-14.5)
[2019-03-24 16:06] VITALS: BP 154/70
[2019-03-24 16:15] LABS: ALANINE AMINOTRANSFERASE 12 U/L (0-55); ALBUMIN 4.2 GM/DL (3.2-4.5); ALKALINE PHOSPHATASE 51 U/L (40-136); BILIRUBIN,TOTAL 0.4 MG/DL (0.1-1.0); BUN/CREATININE RATIO 17; CALCIUM 9.1 MG/DL (8.5-10.1); CARBON DIOXIDE 26 MMOL/L (21-32); CHLORIDE 103 MMOL/L (98-107); CREATININE SERUM 0.94 MG/DL (0.60-1.30); GFR ESTIMATED > 60; GLUCOSE 133 MG/DL (70-105); MAGNESIUM 2.2 MG/DL (1.8-2.4); PHOSPHORUS 2.8 MG/DL (2.3-4.7); POTASSIUM 3.9 MMOL/L (3.6-5.0); SODIUM 138 MMOL/L (135-145); TOTAL PROTEIN 6.7 GM/DL (6.4-8.2)
[2019-03-24 17:58] LABS: ABG BASE EXCESS 1.1 MMOL/L (-2.5-2.5); ABG OXYGEN SATURATION 97 % (94-100); ABG PCO2 40 MMHG (35-45); ABG PH 7.41 (7.37-7.43); ABG PO2 89 MMHG (79-93); ABG TCO2 26.5 MMOL/L (21.0-31.0); ALLENS TEST YES-POS; INSPIRED O2 3; PATIENT TEMP 97.4; VENTILATOR NO
[2019-03-24] MEDS: inSUlin ASPART (NovoLOG) 1 UNIT/0.01 ML (CHARGE PER UNIT) SC SCH ×2 (17:59→21:29)
[2019-03-24] MEDS ORDERED: PANTOPRAZOLE 40 MG (PROTONIX) TAB PO NR (18:00)
[2019-03-24] MEDS ORDERED: ONDANSETRON 4 MG/2 ML (SDV) Z0FRAN IVP PRN (18:00)
[2019-03-24] MEDS: RT-ALBUTEROL/IPRATROPIUM 3 ML (DUONEB) VIAL INH SCH ×2 (18:12→22:04)
--- NOTE | 2019-03-24 18:12 | History & Physicial ---
History of Present Illness History of Present Illness Reason for visit/HPI This is a 78 year old male with severe COPD and chronic respiratory failure as well as noncompliance with medical therapy who had initially presented to my office last week with shortness of air and dizziness. He was given IV solumedrol and started on an oral steroid tapers and instructed to use his oxygen continuously as well as do his nebulizer treatments with duoneb every 4 hours routinely and to go to the ER if her worsened over the weekend. He returned to my office today with ongoing dizziness and shortness of air so he was sent for stat labs including an ABG which showed acute respiratory failure with a pO2 of 41 and an oxygen saturation of 76. He was directly admitted for BIPAP and pulmonary consultation. The patient had upped his oxygen to 5liters on his own but it was noted when he was in my office that his oxygen tank was empty. Date of Admission Mar 24, 2019 at 14:15 Date Seen by a Provider: Mar 24, 2019 Time Seen by a Provider: 18:12 I consulted on this patient on 03/24/19 18:06 Attending Physician Lita Barakat DO Admitting Physician Lita Barakat DO Consult Allergies and Home Medications Allergies Coded Allergies: hydrocodone (Verified Allergy, Unknown, NAUSEA, 12/15/18) oxycodone (Verified Allergy, Unknown, NAUSEA, 12/15/18) Home Medications Acetaminophen 500 Mg Tablet, 500-1,000 MG PO Q6H PRN for PAIN-MILD, (Reported) Albuterol Sulfate 18 Gm Hfa.aer.ad, 2 PUFF INH Q6H PRN for SHORTNESS OF BREATH, (Reported) Albuterol Sulfate 2.5 Mg/3 Ml Vial.neb, 2.5 MG NEB Q4H PRN for SHORTNESS OF BREATH, (Reported) Amlodipine Besylate 5 Mg Tablet, 5 MG PO DAILY, (Reported) Amoxicillin/Potassium Clav 1 Each Tablet, 1 EACH PO BID Prescribed by: LITA BARAKAT on 12/30/18 1107 Aspirin 81 Mg Tablet.dr, 81 MG PO DAILY, (Reported) Azithromycin 250 Mg Tablet, 250 MG PO UD TAKE 2 TABLETS ON DAY ONE THEN TAKE 1 TABLET DAILY FOR FOUR MORE DAYS Prescribed by: TATA HERMOSILLO on 03/08/19 1728 Benzonatate 100 Mg Capsule, 100 MG PO TID PRN for COUGH, (Reported) Budesonide/Formoterol Fumarate 10.2 Gm Hfa.aer.ad, 2 PUFF IH BID PRN for SHORTNESS OF BREATH, (Reported) Carbidopa/Levodopa 1 Each Tablet.er, 1 TAB PO BID, (Reported) Fluconazole 100 Mg Tablet, 100 MG PO DAILY Prescribed by: LITA BARAKAT on 12/30/18 1108 Guaifenesin 1,200 Mg Tab.er.12h, 1,200 MG PO BID Prescribed by: LITA BARAKAT on 12/18/18 1253 Insulin Aspart 100 Unit/1 Ml Susp, 10 UNIT SQ AC, (Reported) Insulin Detemir 100 Unit/1 Ml Insuln.pen, 20 UNITS SC HS, (Reported) Isosorbide Mononitrate 60 Mg Tab, 60 MG PO DAILY, (Reported) Losartan Potassium 100 Mg Tablet, 100 MG PO DAILY, (Reported) Menthol 113.6 Gm Gel..gram., TP HS, (Reported) Pantoprazole Sodium 40 Mg Tablet.dr, 40 MG PO DAILY, (Reported) Potassium Gluconate 99 Mg Tablet, 99 MG PO DAILY, (Reported) Prednisone 10 Mg Tab.ds.pk, 10 MG PO DAILY Take 6 tabs(60mg)daily,decrease by 1 tab(10MG)daily. Prescribed by: TATA HERMOSILLO on 03/08/19 1728 Ropinirole HCl 4 Mg Tablet, 12 MG PO HS, (Reported) TAKES 3 (4MG) TABLETS Tramadol HCl 50 Mg Tablet, 50 MG PO TID PRN for PAIN-MODERATE, (Reported) Umeclidinium [place] 62.5 Mcg Blst.w.dev, 1 PUFF INH DAILY, (Reported) Patient Home Medication List Home Medication List Reviewed: Yes Past Puhlolf-Ddoiln-Gtcudz Hx Patient Social History Marrital Status: Alcohol Beverage of Choice: Beer Former Smoker, Quit: May 25, 1996 Type Used: Cigars 2nd Hand Smoke Exposure: Yes Recent Hopitalizations: Yes (12/18/2018) Immunizations Up To Date Tetanus Booster (TDap): Unknown Pediatric: Yes Date of Pneumonia Vaccine: Sep 25, 2018 Date of Influenza Vaccine: Sep 25, 2018 Seasonal Allergies Seasonal Allergies: No Surgeries Yes (CATARACTS, KNEE SCOPE, SKIN CANCERS REMOVED) Coronary Stent, Orthopedic Respiratory Yes (O2 4L NC) COPD, Pneumonia Currently Using CPAP: Yes Currently Using BIPAP: No Cardiovascular Yes (stents x5) Coronary Artery Disease, Heart Attack, High Cholesterol, Hypertension Neurological No Reproductive System Hx Reproductive Disorders: No Sexually Transmitted Disease: No HIV/AIDS: No Genitourinary No Gastrointestinal No Gastroesophageal Reflux, Chronic Diarrhea Musculoskeletal Yes Arthritis, Fractures Endocrine History of Endocrine Disorders: Yes Endocrine Disorders: Diabetes, Insulin dep HEENT History of HEENT Disorders: No HEENT Disorders: Cataract Loss of Vision: Bilateral Hearing Impairment: Hard of Hearing Cancer Yes Skin Did You Recieve Any Treatments: Yes Type of Treatment: Surgical Intervention Psychosocial History of Psychiatric Problem: Yes Behavioral Health Disorders: Anxiety Integumentary History of Skin or Integumenta: Yes (ACTINIC KERATOSIS, SKIN CANCER) Skin/Integumentary Disorders: Eczema Blood Transfusions History of Blood Disorders: No Adverse Reaction to a Blood Tr: No (HAS HAD BLOOD WITH NO REACTION) Family Medical History Family Hx: Cancer 09 BROTHER Cancer of colon 09 BROTHER Cataract 03 MOTHER Chest pain 03 MOTHER Congenital heart disease 03 FATHER Congestive heart failure 03 FATHER Family history: Cardiovascular disease 03 FATHER 03 MOTHER Family history: Diabetes mellitus 03 FATHER Family history: Gastrointestinal disease 03 MOTHER Family history: Hypertension 03 MOTHER Hearing loss 03 FATHER Heart disease 03 FATHER History of - respiratory disease 03 FATHER Kidney disease 03 FATHER Myocardial infarction 03 FATHER Stroke 03 FATHER No Family History of: Abdominal aortic aneurysm [place]'s disease Alcoholism Aphasia Cystic fibrosis Dementia Dysphagia Family history: Allergy Family history: Alzheimer's disease Family history: Arthritis Family history: Asthma Family history: Breast disease Family history: Coronary thrombosis Family history: Glaucoma Family history: Osteoporosis Family history: Thyroid disorder Headache Hereditary disease History of - anemia History of - disorder History of drug abuse Human immunodeficiency virus (HIV) seropositivity Hypercholesterolemia Infertile Malignant neoplasm of lung Parkinson's disease Prostate cancer Psychotic disorder Seizure disorder Tuberculosis Visual impairment Review of Systems Constitutional: weakness EENTM: No see HPI, No no symptoms reported, No ear discharge, No hearing loss, No ear pain, No blurred vision, No double vision, No eye pain, No tearing, No vision loss, No dental problems, No hoarseness, No mouth pain, No mouth swelling, No epistaxis, No nose congestion, No nose pain, No throat pain, No throat swelling, No other Respiratory: dyspnea on exertion, short of breath, wheezing Cardiovascular: No no symptoms reported, No see HPI, No chest pain, No edema, No Hx of Intervention, No palpitations, No syncope, No vascular heart diseas, No other Gastrointestinal: No RUQ, No LUQ, No RLQ, No LLQ, No no symptoms reported, No see HPI, No abdominal pain, No constipation, No diarrhea, No dysphagia, No hematemesis, No heartburn, No jaundice, No loss of appetite, No melena, No nausea, No vomiting, No other Genitourinary: No no symptoms reported, No see HPI, No decreased output, No discharge, No dysuria, No frequency, No hematuria, No hesitancy, No incontinence, No nocturia, No pain, No other Musculoskeletal: muscle weakness Psychiatric/Neurological: Weakness, Other (dizziness) Physical Exam Vital Signs Vital Signs - First Documented 03/24/19 15:34 Pulse 81 Capillary Refill : Height, Weight, BMI Height: 6'0.00" Weight: 205lbs. 0.6oz. 93.382905bw; 27.8 BMI Method:Stated General Appearance: Moderate Distress HEENT: Normal ENT Inspection Respiratory: Decreased Breath Sounds, Respiratory Distress Cardiovascular: Regular Rate, Rhythm, Systolic Murmur, Gallop/S4 Gastrointestinal: Normal Bowel Sounds, Non Tender, Soft Rectal: Deferred Extremity: Non Tender, No Calf Tenderness, No Pedal Edema Neurologic/Psychiatric: Alert, Oriented x3 Skin: Warm/Dry Comments Laboratory Tests 03/24/19 14:55: White Blood Count 7.0, Red Blood Count 3.87L, Hemoglobin 10.7L, Hematocrit 34L, Mean Corpuscular Volume 88, Mean Corpuscular Hemoglobin 28, Mean Corpuscular Hemoglobin Concent 32, Red Cell Distribution Width 14.9H, Platelet Count 205, Mean Platelet Volume 9.4, Sodium Level 138, Potassium Level 3.9, Chloride Level 103, Carbon Dioxide Level 26, Anion Gap 9, Blood Urea Nitrogen 16, Creatinine 0.94, Estimat Glomerular Filtration Rate > 60, BUN/Creatinine Ratio 17, Glucose Level 133H, Calcium Level 9.1, Corrected Calcium 8.9, Phosphorus Level 2.8, Magnesium Level 2.2, Total Bilirubin 0.4, Aspartate Amino Transf (AST/SGOT) 12, Alanine Aminotransferase (ALT/SGPT) 12, Alkaline Phosphatase 51, Troponin I < 0.028, B-Type Natriuretic Peptide 22.6, Total Protein 6.7, Albumin 4.2 03/24/19 16:44: Glucometer 264H 03/24/19 17:46: Blood Gas Puncture Site RT RAD, Blood Gas Patient Temperature 97.4, Arterial Blood pH 7.41, Arterial Blood Partial Pressure CO2 40, Arterial Blood Partial Pressure O2 89, Arterial Blood HCO3 25, Arterial Blood Total CO2 26.5, Arterial Blood Oxygen Saturation 97, Arterial Blood Base Excess 1.1, Ahsan Test YES-POS, Blood Gas Ventilator Setting NO, Blood Gas Inspired Oxygen 3 Assessment/Plan Assessment and Plan 1. Acute on Chronic Respiratory Failure--admit on BiPAP, pulmonary consultation 2. Acute Exacerbation of COPD--IV solumedrol and SVNS with duoneb 3. Diabetes mellitus--insulin requiring--accuchecks with SSI C 4. Hypertension--resume home meds 5. Anxiety--lorazepam IV prn to tolerate BIPAP Admission Diagnosis Admission Status: Inpatient Order (span 2 midnights) Reason for Inpatient Admission: Patient will require high dose IV solumedrol then weaning which will take at least 2 days Clinical Quality Measures DVT/VTE Risk/Contraindication: Risk Factor Score Per Nursin RFS Level Per Nursing on Admit: 4+=Very High LITA BARAKAT DO Mar 24, 2019 18:12
[2019-03-24] MEDS ORDERED: ACETAMINOPHEN 500 MG TAB (TYLENOL) PO PRN (19:45)
[2019-03-24 20:01] VITALS: BP 158/70
[2019-03-24] MEDS ORDERED: rOPINIRole 1 MG (REQUIP) TABLET PO SCH ×2 (21:00)
[2019-03-24] MEDS ORDERED: rOPINIRole 5 MG TAB (REQUIP) PO SCH (21:00)
[2019-03-24] MEDS: SINEMET 25/100 (CARBIDOPA/LEVODOPA) TAB PO SCH (21:23)
[2019-03-24] MEDS: amLODIPine 5 MG (NORVASC) TAB PO SCH (21:28)
[2019-03-24] MEDS: MONTELUKAST 10 MG (SINGULAIR) TAB PO SCH (21:28)
[2019-03-24] MEDS: RT-ADVAIR HFA 115/21 MCG PER PUFF IH SCH (22:05)
[2019-03-25] VITALS: BP 144/63
[2019-03-25] MEDS: RT-ALBUTEROL/IPRATROPIUM 3 ML (DUONEB) VIAL INH SCH ×6 (02:21→22:39)
[2019-03-25] MEDS: methylPREDNISolone 125 MG (Solu-MEDROL) VIAL IV SCH ×2 (02:34→09:46)
[2019-03-25 04:00] VITALS: BP 159/71
[2019-03-25 06:06] LABS: BASOPHILS % (AUTO) 0 % (0-10); EOSINOPHILS % (AUTO) 0 % (0-10); HEMATOCRIT 34 % (40-54); HEMOGLOBIN 10.6 G/DL (13.3-17.7); LYMPHOCYTES # (AUTO) 0.9 X 10^3 (1.0-4.0); LYMPHOCYTES % (AUTO) 11 % (12-44); MEAN CORPUSCULAR HEMOGLOBIN 27 PG (25-34); MEAN CORPUSCULAR HGB CONC 31 G/DL (32-36); MEAN CORPUSCULAR VOLUME 86 FL (80-99); MEAN PLATELET VOLUME 9.5 FL (7.4-10.4); MONOCYTES # (AUTO) 0.1 X 10^3 (0.0-1.0); MONOCYTES % (AUTO) 1 % (0-12); NEUTROPHILS # (AUTO) 7.2 X 10^3 (1.8-7.8); NEUTROPHILS % (AUTO) 88 % (42-75); PLATELET COUNT 197 10^3/uL (130-400); RED CELL DISTRIBUTION WIDTH 14.6 % (10.0-14.5); WHITE BLOOD COUNT 8.2 10^3/uL (4.3-11.0)
[2019-03-25 06:28] LABS: BUN/CREATININE RATIO 18; CALCIUM 9.1 MG/DL (8.5-10.1); CARBON DIOXIDE 20 MMOL/L (21-32); CHLORIDE 102 MMOL/L (98-107); GFR ESTIMATED > 60; GLUCOSE 216 MG/DL (70-105); MAGNESIUM 2.3 MG/DL (1.8-2.4); PHOSPHORUS 3.5 MG/DL (2.3-4.7); POTASSIUM 4.8 MMOL/L (3.6-5.0); SODIUM 135 MMOL/L (135-145)
[2019-03-25] MEDS: inSUlin ASPART (NovoLOG) 1 UNIT/0.01 ML (CHARGE PER UNIT) SC SCH ×4 (06:33→21:18)
[2019-03-25] MEDS: PANTOPRAZOLE 40 MG (PROTONIX) TAB PO SCH (06:34)
[2019-03-25] MEDS: RT-ADVAIR HFA 115/21 MCG PER PUFF IH SCH ×2 (07:01→22:39)
[2019-03-25 08:00] VITALS: BP 156/67
[2019-03-25] MEDS ORDERED: IPRA3AMP31 NEB (08:35)
[2019-03-25] MEDS ORDERED: NYST1000 PO (08:35)
[2019-03-25] MEDS ORDERED: MAGN400T39 PO (09:26)
[2019-03-25] MEDS ORDERED: GUAI600T43 PO (09:26)
[2019-03-25] MEDS ORDERED: LOPE2TAB34 PO (09:26)
[2019-03-25] MEDS ORDERED: [UNRECOGNIZED DRUG - CODE] TP (09:26)
[2019-03-25] MEDS ORDERED: IBUP-2055 PO (09:26)
[2019-03-25] MEDS ORDERED: MECL12.579 PO (09:26)
[2019-03-25] MEDS ORDERED: TRAZ150T72 PO (09:26)
[2019-03-25] MEDS ORDERED: RT-ALBUINH INH (09:32)
[2019-03-25] MEDS ORDERED: ISOS30TA3 PO (09:44)
[2019-03-25] MEDS: LORATADINE (CLARITIN) 10 MG TAB PO SCH (09:46)
[2019-03-25] MEDS: SINEMET 25/100 (CARBIDOPA/LEVODOPA) TAB PO SCH ×2 (09:46→21:07)
[2019-03-25] MEDS: ASPIRIN 81 MG CHEW (CHILDREN'S ASA) PO SCH (09:46)
--- NOTE | 2019-03-25 09:55 | NUR ---
SPOKE WITH PATIENT ABOUT HOME MEDS (HE ALSO HAD BOTTLES WITH HIM) WELL GOING THRU THE EXTERNAL MED HISTORY TO COMPLETE THE MED REC. TRAMADOL 50MG- PT SAYS HE ONLY TAKES 1 T QHS OTC MEDICATIONS: ASPIRIN 81 MG POTASSIUM GLUCONATE PRN MENTOL GEL PRN MECLIZINE 12.5MG PRN MAG-OXIDE 400MG PRN LOPERAMIDE 2MG PRN IBUPROFEN 200MG PRN ACETAMINOPHEN 1000MG PRN MUCINEX 600MG BID PRN
[2019-03-25 12:00] VITALS: BP 138/72
[2019-03-25] MEDS ORDERED: NON-FORMULARY MEDICATION 1 EA EA (Budesonide/Formoterol Fumarate (Symbicort 160-4.5 Mcg In IH PRN (12:45)
[2019-03-25] MEDS ORDERED: ISOSORBIDE MONONITRATE 30 MG (IMDUR) TAB PO NR (12:45)
--- NOTE | 2019-03-25 13:17 | Pulmonary Progress Note ---
Subjective Time Seen by a Provider: 08:00 Subjective/Events-last exam Still SOB. Sepsis Event Evaluation Height, Weight, BMI Height: 6'0.00" Weight: 200lbs. 4.0oz. 90.034979if; 27.8 BMI Method:Stated Exam Exam Vital Signs Date Time Temp Pulse Resp B/P (MAP) Pulse Ox O2 Delivery O2 Flow Rate FiO2 03/25/19 10:28 96 Nasal Cannula 3.00 03/25/19 08:00 Nasal Cannula 3.00 03/25/19 08:00 97.6 81 20 156/67 (96) 94 Nasal Cannula 3.00 03/25/19 07:02 Room Air 03/25/19 07:00 82 03/25/19 04:00 98.5 70 22 159/71 (100) 97 Nasal Cannula 3.00 03/25/19 02:22 97 Nasal Cannula 3.00 03/25/19 01:00 69 03/25/19 00:00 98.8 77 22 144/63 (90) 98 Nasal Cannula 3.00 03/24/19 22:14 96 Nasal Cannula 3.00 03/24/19 20:01 98.5 78 20 158/70 (99) 97 Nasal Cannula 3.00 03/24/19 20:00 Nasal Cannula 3.00 03/24/19 19:00 72 03/24/19 16:06 95 Room Air 03/24/19 16:06 96.3 76 22 154/70 (98) 97 Nasal Cannula 3.00 03/24/19 15:34 81 I & O 03/25/19 07:00 Intake Total 1190 ml Balance 1190 ml Height & Weight Height: 6'0.00" Weight: 200lbs. 4.0oz. 90.688746zg; 27.8 BMI Method:Stated General Appearance: Moderate Distress HEENT: Normal ENT Inspection Respiratory: Decreased Breath Sounds, Respiratory Distress Cardiovascular: Regular Rate, Rhythm, Systolic Murmur, Gallop/S4 Extremity: Non Tender, No Calf Tenderness, No Pedal Edema Neurologic/Psychiatric: Alert, Oriented x3 Skin: Warm/Dry Results Lab Laboratory Tests 03/24/19 14:55 03/25/19 05:45 Assessment/Plan Assessment/Plan Acute on chronic respiratory failure -BiPAP PRN -Oxygen -CXR reviewed -ABG COPDAE -SVNS, Advair Solumedrol -Pt already has home oxygen Dizziness - probably secondary to hypoxia -Oxygen -Monitor Allergic rhinitis -Singulair, Claritin HTN GERD CAD Noncompliance with multiple hospitalizations RAKEL THORPE DO Mar 25, 2019 13:17
[2019-03-25] MEDS: methylPREDNISolone 125 MG (Solu-MEDROL) VIAL IVP SCH ×2 (14:18→21:12)
[2019-03-25 16:04] VITALS: BP 154/71
[2019-03-25] MEDS ORDERED: MILK OF MAGNESIA 400 MG/5 ML 30 ML UDC PO NR (17:00)
[2019-03-25] MEDS ORDERED: SENNA W/DOCUSATE (SENOKOT S) TABLET PO NR (17:00)
--- NOTE | 2019-03-25 17:02 | Progress Note (SOAP) ---
Subjective Date Seen by a Provider: Mar 25, 2019 Time Seen by a Provider: 12:30 Subjective/Events-last exam Fwup acute on chronic respiratory failure, COPD with acute exacerbation, noncompliance, HTN, Hx. of CAD. Sitting up in bed on nasal cannula and feeling good--wants to go home. Objective Exam Vital Signs Date Time Temp Pulse Resp B/P (MAP) Pulse Ox O2 Delivery O2 Flow Rate FiO2 03/25/19 16:04 98.5 84 20 154/71 (98) 94 Nasal Cannula 3.00 03/25/19 15:45 Nasal Cannula 3.00 03/25/19 13:00 102 03/25/19 12:00 97.0 97 20 138/72 (94) 100 Nasal Cannula 3.00 03/25/19 10:28 96 Nasal Cannula 3.00 03/25/19 08:00 Nasal Cannula 3.00 03/25/19 08:00 97.6 81 20 156/67 (96) 94 Nasal Cannula 3.00 03/25/19 07:02 97 Nasal Cannula 3.00 03/25/19 07:00 82 03/25/19 04:00 98.5 70 22 159/71 (100) 97 Nasal Cannula 3.00 03/25/19 02:22 97 Nasal Cannula 3.00 03/25/19 01:00 69 03/25/19 00:00 98.8 77 22 144/63 (90) 98 Nasal Cannula 3.00 03/24/19 22:14 96 Nasal Cannula 3.00 03/24/19 20:01 98.5 78 20 158/70 (99) 97 Nasal Cannula 3.00 03/24/19 20:00 Nasal Cannula 3.00 03/24/19 19:00 72 I & O 03/25/19 07:00 Intake Total 1190 ml Balance 1190 ml Capillary Refill : General Appearance: No Apparent Distress Neck: Supple Respiratory: Lungs Clear Cardiovascular: Regular Rate, Rhythm Gastrointestinal: normal bowel sounds, non tender, soft Extremity: Non Tender, No Calf Tenderness, No Pedal Edema Neurologic/Psychiatric: Alert, Oriented x3 Results Lab Laboratory Tests 03/24/19 17:46: Blood Gas Puncture Site RT RAD, Blood Gas Patient Temperature 97.4, Arterial Blood pH 7.41, Arterial Blood Partial Pressure CO2 40, Arterial Blood Partial Pressure O2 89, Arterial Blood HCO3 25, Arterial Blood Total CO2 26.5, Arterial Blood Oxygen Saturation 97, Arterial Blood Base Excess 1.1, Ahsan Test YES-POS, Blood Gas Ventilator Setting NO, Blood Gas Inspired Oxygen 3 03/24/19 20:35: Glucometer 223H 03/25/19 05:36: Glucometer 216H 03/25/19 05:45: White Blood Count 8.2, Red Blood Count 3.92L, Hemoglobin 10.6L, Hematocrit 34L, Mean Corpuscular Volume 86, Mean Corpuscular Hemoglobin 27, Mean Corpuscular Hemoglobin Concent 31L, Red Cell Distribution Width 14.6H, Platelet Count 197, Mean Platelet Volume 9.5, Neutrophils (%) (Auto) 88H, Lymphocytes (%) (Auto) 11L , Monocytes (%) (Auto) 1, Eosinophils (%) (Auto) 0, Basophils (%) (Auto) 0, Neutrophils # (Auto) 7.2, Lymphocytes # (Auto) 0.9L, Monocytes # (Auto) 0.1, Eosinophils # (Auto) 0.0, Basophils # (Auto) 0.0, Sodium Level 135, Potassium Level 4.8, Chloride Level 102, Carbon Dioxide Level 20L, Anion Gap 13, Blood Ure a Nitrogen 18, Creatinine 1.00, Estimat Glomerular Filtration Rate > 60, BUN/Creatinine Ratio 18, Glucose Level 216H, Calcium Level 9.1, Phosphorus Level 3.5, Magnesium Level 2.3 03/25/19 11:40: Glucometer 231H 03/25/19 16:03: Glucometer 247H Assessment/Plan Assessment/Plan Assess & Plan/Chief Complaint 1. Acute on Chronic Respiratory Failure--on continuous oxygen at 3L NC, once again discussed importance of using his oxygen continuously on discharge as well as staying inside and out of humidity 2. COPD with acute exacerbation--wean IV solumedrol, continue SVNs with duoneb 3. Hypertension--resume home meds 4. DMII--on SSI, restart levemir 5. Hx of CAD--restart imdur and aspirin, stable Clinical Quality Measures Admission Status Admission Dx 1. Acute on Chronic Respiratory Failure--admit on BiPAP, pulmonary consultation 2. Acute Exacerbation of COPD--IV solumedrol and SVNS with duoneb 3. Diabetes mellitus--insulin requiring--accuchecks with SSI C 4. Hypertension--resume home meds 5. Anxiety--lorazepam IV prn to tolerate BIPAP DVT/VTE Risk/Contraindication: Risk Factor Score Per Nursin RFS Level Per Nursing on Admit: 4+=Very High YVETTE JACKMAN DO Mar 25, 2019 17:02
[2019-03-25] MEDS ORDERED: rOPINIRole 5 MG TAB (REQUIP) PO SCH (18:00)
[2019-03-25] MEDS ORDERED: rOPINIRole 1 MG (REQUIP) TABLET PO SCH (18:00)
[2019-03-25 19:42] VITALS: BP 121/58
[2019-03-25] MEDS ORDERED: NON-FORMULARY MEDICATION 1 EA EA (Insulin Detemir (Levemir Flextouch) 20 UNITS) SC SCH (21:00)
[2019-03-25] MEDS: SENNA W/DOCUSATE (SENOKOT S) TABLET PO SCH (21:07)
[2019-03-25] MEDS: MONTELUKAST 10 MG (SINGULAIR) TAB PO SCH (21:08)
[2019-03-25] MEDS: amLODIPine 5 MG (NORVASC) TAB PO SCH (21:08)
[2019-03-26 00:04] VITALS: BP 128/58
[2019-03-26] MEDS: RT-ALBUTEROL/IPRATROPIUM 3 ML (DUONEB) VIAL INH SCH ×3 (02:34→11:10)
[2019-03-26 04:37] VITALS: BP 148/56
[2019-03-26] MEDS: methylPREDNISolone 125 MG (Solu-MEDROL) VIAL IVP SCH (05:09)
[2019-03-26] MEDS: PANTOPRAZOLE 40 MG (PROTONIX) TAB PO SCH (05:10)
--- NOTE | 2019-03-26 05:47 | Pulmonary Progress Note ---
Subjective Time Seen by a Provider: 07:59 Subjective/Events-last exam PT feels much improved. Sepsis Event Evaluation Height, Weight, BMI Height: 6'0.00" Weight: 204lbs. 9.0oz. 92.148896et; 27.8 BMI Method:Stated Exam Exam Vital Signs Date Time Temp Pulse Resp B/P (MAP) Pulse Ox O2 Delivery O2 Flow Rate FiO2 03/26/19 04:37 98.3 82 22 148/56 (86) 96 Nasal Cannula 3.00 03/26/19 02:35 97 Nasal Cannula 3.00 03/26/19 01:00 80 03/26/19 00:04 97.7 75 23 128/58 (81) 94 Nasal Cannula 3.00 03/25/19 22:41 98 Nasal Cannula 4.00 03/25/19 20:00 98 Nasal Cannula 4.00 03/25/19 19:42 97.9 84 20 121/58 (79) 95 Nasal Cannula 3.00 03/25/19 19:24 95 Nasal Cannula 3.00 03/25/19 19:00 85 03/25/19 16:04 98.5 84 20 154/71 (98) 94 Nasal Cannula 3.00 03/25/19 15:45 Nasal Cannula 3.00 03/25/19 13:00 102 03/25/19 12:00 97.0 97 20 138/72 (94) 100 Nasal Cannula 3.00 03/25/19 10:28 96 Nasal Cannula 3.00 03/25/19 08:00 Nasal Cannula 3.00 03/25/19 08:00 97.6 81 20 156/67 (96) 94 Nasal Cannula 3.00 03/25/19 07:02 97 Nasal Cannula 3.00 03/25/19 07:00 82 I & O 03/26/19 06:59 Intake Total 2130 ml Output Total 600 ml Balance 1530 ml Height & Weight Height: 6'0.00" Weight: 204lbs. 9.0oz. 92.773487cm; 27.8 BMI Method:Stated General Appearance: No Apparent Distress HEENT: Normal ENT Inspection Neck: Supple Respiratory: Lungs Clear Cardiovascular: Regular Rate, Rhythm Gastrointestinal: normal bowel sounds, non tender, soft Extremity: Non Tender, No Calf Tenderness, No Pedal Edema Neurologic/Psychiatric: Alert, Oriented x3 Skin: Warm/Dry Results Lab Laboratory Tests 7/1/19 14:55 03/25/19 05:45 Assessment/Plan Assessment/Plan Acute on chronic respiratory failure -BiPAP PRN -Oxygen -CXR reviewed -ABG COPDAE -SVNS, Advair Solumedrol -Pt already has home oxygen Dizziness - probably secondary to hypoxia -Oxygen -Monitor Allergic rhinitis -Singulair, Claritin HTN GERD CAD Noncompliance with multiple hospitalizations RAKEL THORPE DO Mar 26, 2019 05:47
[2019-03-26 05:54] LABS: BASOPHILS % (AUTO) 0 % (0-10); EOSINOPHILS % (AUTO) 0 % (0-10); HEMATOCRIT 31 % (40-54); HEMOGLOBIN 10.3 G/DL (13.3-17.7); LYMPHOCYTES % (AUTO) 8 % (12-44); MEAN CORPUSCULAR HEMOGLOBIN 28 PG (25-34); MEAN CORPUSCULAR HGB CONC 33 G/DL (32-36); MEAN CORPUSCULAR VOLUME 86 FL (80-99); MEAN PLATELET VOLUME 9.4 FL (7.4-10.4); MONOCYTES # (AUTO) 0.5 X 10^3 (0.0-1.0); MONOCYTES % (AUTO) 4 % (0-12); NEUTROPHILS # (AUTO) 11.4 X 10^3 (1.8-7.8); NEUTROPHILS % (AUTO) 88 % (42-75); PLATELET COUNT 203 10^3/uL (130-400); RED CELL DISTRIBUTION WIDTH 14.7 % (10.0-14.5); WHITE BLOOD COUNT 12.9 10^3/uL (4.3-11.0)
[2019-03-26 06:14] LABS: BUN/CREATININE RATIO 24; CALCIUM 8.7 MG/DL (8.5-10.1); CARBON DIOXIDE 23 MMOL/L (21-32); CHLORIDE 100 MMOL/L (98-107); CREATININE SERUM 0.99 MG/DL (0.60-1.30); GFR ESTIMATED > 60; GLUCOSE 225 MG/DL (70-105); MAGNESIUM 2.6 MG/DL (1.8-2.4); POTASSIUM 4.1 MMOL/L (3.6-5.0); SODIUM 135 MMOL/L (135-145)
[2019-03-26] MEDS: inSUlin ASPART (NovoLOG) 1 UNIT/0.01 ML (CHARGE PER UNIT) SC SCH ×2 (06:18→11:54)
[2019-03-26] MEDS ORDERED: ISOSORBIDE MONONITRATE 30 MG (IMDUR) TAB PO SCH (06:30)
[2019-03-26 08:00] VITALS: BP 128/60
[2019-03-26] MEDS ORDERED: MAGNESIUM OXIDE (MAG-OX)400 MG TAB PO SCH (08:00)
--- NOTE | 2019-03-26 08:03 | Pulmonary Progress Note ---
Subjective Time Seen by a Provider: 08:03 Sepsis Event Evaluation Height, Weight, BMI Height: 6'0.00" Weight: 204lbs. 9.0oz. 92.261398cf; 27.8 BMI Method:Stated Exam Exam Vital Signs Date Time Temp Pulse Resp B/P (MAP) Pulse Ox O2 Delivery O2 Flow Rate FiO2 03/26/19 07:00 93 03/26/19 04:37 98.3 82 22 148/56 (86) 96 Nasal Cannula 3.00 03/26/19 02:35 97 Nasal Cannula 3.00 03/26/19 01:00 80 03/26/19 00:04 97.7 75 23 128/58 (81) 94 Nasal Cannula 3.00 03/25/19 22:41 98 Nasal Cannula 4.00 03/25/19 20:00 98 Nasal Cannula 4.00 03/25/19 19:42 97.9 84 20 121/58 (79) 95 Nasal Cannula 3.00 03/25/19 19:24 95 Nasal Cannula 3.00 03/25/19 19:00 85 03/25/19 16:04 98.5 84 20 154/71 (98) 94 Nasal Cannula 3.00 03/25/19 15:45 Nasal Cannula 3.00 03/25/19 13:00 102 03/25/19 12:00 97.0 97 20 138/72 (94) 100 Nasal Cannula 3.00 03/25/19 10:28 96 Nasal Cannula 3.00 I & O 03/26/19 07:00 Intake Total 2670 ml Output Total 600 ml Balance 2070 ml Height & Weight Height: 6'0.00" Weight: 204lbs. 9.0oz. 92.789175mm; 27.8 BMI Method:Stated General Appearance: No Apparent Distress, Anxious HEENT: Normal ENT Inspection Neck: Supple Respiratory: Decreased Breath Sounds, Respiratory Distress Cardiovascular: Regular Rate, Rhythm, Systolic Murmur, Gallop/S4 Gastrointestinal: normal bowel sounds, non tender, soft Extremity: Non Tender, No Calf Tenderness, No Pedal Edema Neurologic/Psychiatric: Alert, Oriented x3 Skin: Warm/Dry Results Lab Laboratory Tests 03/24/19 14:55 03/25/19 05:45 03/26/19 05:30 Assessment/Plan Assessment/Plan Acute on chronic respiratory failure -BiPAP PRN -Oxygen -CXR reviewed -ABG C02 40 COPDAE -SVNS, Advair -Solumedrol - change to prednisone taper -Pt already has home oxygen Dizziness - probably secondary to hypoxia -Oxygen -Monitor Allergic rhinitis -Sohan Mosqueda HTN GERD CAD Noncompliance with multiple hospitalizations RAKEL THORPE DO Mar 26, 2019 08:03
[2019-03-26] MEDS: SINEMET 25/100 (CARBIDOPA/LEVODOPA) TAB PO SCH (08:41)
[2019-03-26] MEDS: SENNA W/DOCUSATE (SENOKOT S) TABLET PO SCH (08:41)
[2019-03-26] MEDS: ASPIRIN 81 MG CHEW (CHILDREN'S ASA) PO SCH (08:41)
[2019-03-26] MEDS: LORATADINE (CLARITIN) 10 MG TAB PO SCH (08:42)
[2019-03-26] MEDS ORDERED: NON-FORMULARY MEDICATION 1 EA EA (Aspirin (Aspir 81) 81 MG) PO SCH (09:00)
[2019-03-26] MEDS ORDERED: NON-FORMULARY MEDICATION 1 EA EA (Magnesium Oxide (Magnesium) 400 MG) PO SCH (09:00)
[2019-03-26] MEDS ORDERED: PANTOPRAZOLE 40 MG (PROTONIX) TAB PO SCH (09:00)
[2019-03-26] MEDS ORDERED: LOSARTAN 100 MG (COZAAR) TABLET PO SCH (09:00)
[2019-03-26] MEDS: RT-ADVAIR HFA 115/21 MCG PER PUFF IH SCH (11:10)
[2019-03-26 12:00] VITALS: BP 129/62
[2019-03-26] MEDS ORDERED: PRD20T PO (13:20)
--- NOTE | 2019-03-26 13:21 | Discharge Inst-Simple/Standard ---
Discharge Inst-Standard Discharge Medications New, Converted or Re-Newed RX: Transmitted to Pharmacy Patient Instructions/Follow Up Plan of Care/Instructions/FU: Fwup 1 week Activity as Tolerated: Yes Discharge Diet: ADA Diet, Cardiac Diet YVETTE JACKMAN DO Mar 26, 2019 13:21
--- NOTE | 2019-03-26 13:43 | NUR ---
CM/SS. Visited with patient and his , he has continued to manage at home with her and be as active as his illness allows. Patient is now on continuous O2 and has this established at home. They understand a portable will need to be brought in for his discharge transport home. Patient indicates it has been figured out that when the [place] surrounding his home are cut, his exposure to the dust has had a serious effect and caused his condition to spiral downward. Home at ks when medically stable for release. Monitor intermittently for unexpected needs.
[2019-03-26 13:58] VITALS: BP 129/62
--- NOTE | 2019-03-26 13:58 | NUR ---
PT STABLE AND READY FOR DISCHARGE PER DR JACKMAN ORDERS. WRITTEN AND VERBAL D/C INSTRUCTIONS GONE OVER WITH PT AND . PT INSTRUCTED TO WEAR OXYGEN ORDERED AND WAS GIVEN F/U APPOINTMENT. IV D/C WITHOUT DIFFICULTY. PT AMBULATED DOWN TO PRIVATE VEHICLE WITH PORTABLE O2 TANK. LOCKED UP HOME MEDICATIONS GIVEN TO PATIENT. NO FURTHER NEEDS IDENTIFIED.
--- NOTE | 2019-03-26 19:32 | Discharge Summary ---
Diagnosis/Chief Complaint Date of Admission Mar 24, 2019 at 14:15 Date of Discharge Mar 26, 2019 at 13:58 Discharge Date: Mar 26, 2019 Discharge Diagnosis 1. Acute On Chronic Respiratory Failure 2. Acute Exacerbation of COPD 3. Hypertension 4. Diabetes mellitus--insulin requiring 5. Noncompliance 6. Restless Legs Syndrome 7. Dizziness--resolved, likely secondary to hypoxia 8. History of CAD--stable Reason Hospital Visit This is a 78 year old male with severe COPD and chronic respiratory failure as well as noncompliance with medical therapy who had initially presented to my office last week with shortness of air and dizziness. He was given IV solumedrol and started on an oral steroid tapers and instructed to use his oxygen continuously as well as do his nebulizer treatments with duoneb every 4 hours routinely and to go to the ER if her worsened over the weekend. He returned to my office today with ongoing dizziness and shortness of air so he was sent for stat labs including an ABG which showed acute respiratory failure with a pO2 of 41 and an oxygen saturation of 76. He was directly admitted for BIPAP and pulmonary consultation. The patient had upped his oxygen to 5liters on his own but it was noted when he was in my office that his oxygen tank was empty. Discharge Summary Hospital Course Hospital Course This is a 78 year old male with severe COPD and chronic respiratory failure as well as noncompliance with medical therapy who had initially presented to my office last week with shortness of air and dizziness. He was given IV solumedrol and started on an oral steroid tapers and instructed to use his oxygen continuously as well as do his nebulizer treatments with duoneb every 4 hours routinely and to go to the ER if her worsened over the weekend. He returned to my office today with ongoing dizziness and shortness of air so he was sent for stat labs including an ABG which showed acute respiratory failure with a pO2 of 41 and an oxygen saturation of 76. He was directly admitted for BIPAP and pulmonary consultation. The patient had upped his oxygen to 5liters on his own but it was noted when he was in my office that his oxygen tank was empty. He was initially placed on BIPAP as well as high dose IV solumedrol and SVNS with duoneb. His ABG improved dramatically after the BIPAP and solumedrol and he was quickly weaned back to a nasal cannula. By the second hospital day, he was feeling much improved and asking to go home. His solumedrol was weaned and he tolerated this with no worsening of shortness of air. By the day of discharge he was up ambulating in the halls with no shortness of air and an xiously awaiting discharge. It was once again discussed with him the importance of using his oxygen continuously, not getting out in the humidity, doing his inhalers and nebulizer treatments routinely, and pulmonary rehab was once again discussed. Labs Laboratory Tests 03/24/19 14:55: Red Blood Count 3.87L, Hemoglobin 10.7L, Hematocrit 34L, Red Cell Distribution Width 14.9H, Glucose Level 133H 03/24/19 16:44: Glucometer 264H 03/24/19 17:46: 03/24/19 20:35: Glucometer 223H 03/25/19 05:36: Glucometer 216H 03/25/19 05:45: Red Blood Count 3.92L, Hemoglobin 10.6L, Hematocrit 34L, Mean Corpuscular Hemoglobin Concent 31L, Red Cell Distribution Width 14.6H, Neutrophils (%) (Auto) 88H, Lymphocytes (%) (Auto) 11L, Lymphocytes # (Auto) 0.9L, Carbon Dioxide Level 20L, Glucose Level 216H 03/25/19 11:40: Glucometer 231H 03/25/19 16:03: Glucometer 247H 03/25/19 20:55: Glucometer 243H 03/26/19 05:30: White Blood Count 12.9H, Red Blood Count 3.63L, Hemoglobin 10.3L, Hematocrit 31L , Red Cell Distribution Width 14.7H, Neutrophils (%) (Auto) 88H, Lymphocytes (%) (Auto) 8L, Neutrophils # (Auto) 11.4H, Blood Urea Nitrogen 24H, Glucose Level 225H, Magnesium Level 2.6H 03/26/19 05:32: Glucometer 219H 03/26/19 11:12: Glucometer 185H Procedures None. Discharge Physical Examination Allergies: Coded Allergies: hydrocodone (Verified Allergy, Unknown, NAUSEA, 03/25/19) oxycodone (Verified Allergy, Unknown, NAUSEA, 03/25/19) Vitals & I&Os Vital Signs Date Time Temp Pulse Resp B/P (MAP) Pulse Ox O2 Delivery O2 Flow Rate FiO2 03/26/19 13:58 87 22 129/62 98 Nasal Cannula 3.00 03/26/19 12:00 98.0 General Appearance: Alert, Oriented X3, Cooperative, No Acute Distress Respiratory: Clear to Auscultation Cardiovascular: Regular Rate Extremities: No Clubbing, No Cyanosis, No Edema Psych/Mental Status: Mental Status NL Discharge Home Medications Reviewed and agree with Discharge Medication list on patient's Discharge Instruction sheet Instructions to Patient/Family Please see electronic discharge instructions given to patient. Clinical Quality Measures DVT/VTE Risk/Contraindication: Risk Factor Score Per Nursin RFS Level Per Nursing on Admit: 4+=Very High YVETTE JACKMAN DO Mar 26, 2019 19:32
[2019-03-27] MEDS ORDERED: predniSONE 10 MG TAB PO SCH (09:00)
== END 2019-03-26 13:58 | disposition home or self-care (01) | DRG 189 ==
LOC: 4TH 14:15
PROVIDERS: ADMIT Family Medicine; ATTEND Family Medicine
DX: J96.21 Acute and chronic respiratory failure with hypoxia (principal); J44.1 Chronic obstructive pulmonary disease with (acute) exacerbation; Z91.19 Patient's noncompliance with other medical treatment and regimen; J30.9 Allergic rhinitis, unspecified; I25.10 Atherosclerotic heart disease of native coronary artery without angina pectoris; G25.81 Restless legs syndrome; G47.30 Sleep apnea, unspecified; I10 Essential (primary) hypertension; E11.9 Type 2 diabetes mellitus without complications; E78.00 Pure hypercholesterolemia, unspecified; K21.9 Gastro-esophageal reflux disease without esophagitis; F41.9 Anxiety disorder, unspecified; Z79.4 Long term (current) use of insulin; I25.2 Old myocardial infarction; Z95.5 Presence of coronary angioplasty implant and graft; Z87.891 Personal history of nicotine dependence
CPT/HCPCS: 36415; 71045; 80048; 80053; 82805; 82962; 83735; 83880; 84100; 84484; 85025; 85027; 93005; 94640; 94760

== ENCOUNTER → 2019-03-24 | Outpatient (CLI) | payer MEDICARE ==
[~2019-03-24] MED LIST changes: +GUAI600T43 PO; +IBUP-2055 PO; +LOPE2TAB34 PO; +MAGN400T39 PO; +MECL12.579 PO; +NYST1000 PO; +TRAZ150T72 PO
[2019-03-24 12:29] LABS: ABG BASE EXCESS 3.5 MMOL/L (-2.5-2.5); ABG OXYGEN SATURATION 76 % (94-100); ABG PCO2 39 MMHG (35-45); ABG PH 7.46 (7.37-7.43); ABG PO2 41 MMHG (79-93); ABG TCO2 28.7 MMOL/L (21.0-31.0)
[2019-03-24 12:30] LABS: ALLENS TEST YES-POS; INSPIRED O2 3L
[2019-03-24 12:31] LABS: PATIENT TEMP 96.9; VENTILATOR NO
[2019-03-24 12:35] LABS: ALANINE AMINOTRANSFERASE 7 U/L (0-55); ALBUMIN 4.2 GM/DL (3.2-4.5); ALKALINE PHOSPHATASE 52 U/L (40-136); BILIRUBIN,TOTAL 0.4 MG/DL (0.1-1.0); BUN/CREATININE RATIO 20; CARBON DIOXIDE 26 MMOL/L (21-32); CHLORIDE 103 MMOL/L (98-107); CREATININE SERUM 0.91 MG/DL (0.60-1.30); GFR ESTIMATED > 60; GLUCOSE 135 MG/DL (70-105); POTASSIUM 3.9 MMOL/L (3.6-5.0); SODIUM 138 MMOL/L (135-145); TOTAL PROTEIN 6.5 GM/DL (6.4-8.2)
== END ==
LOC: RT 11:57
PROVIDERS: ATTEND Nurse Practitioner Family
DX: R42 Dizziness and giddiness (principal); R06.00 Dyspnea, unspecified
CPT/HCPCS: 36415; 36600; 80053; 82805

== ENCOUNTER → 2019-06-27 | Outpatient (CLI) | payer MEDICARE ==
[~2019-06-27] MED LIST changes: -ACLI400A2 IH; +ACLI400A3 IH; +GUAI600T43 PO; +IBUP-2055 PO; +LOPE2TAB34 PO; +MAGN400T39 PO; +MECL12.579 PO; +NYST1000 PO; +OMEP20CA13 PO; +TRAZ150T72 PO
--- NOTE | 2019-06-27 09:40 | Diagnostic Imaging Report ---
INDICATION: Right upper quadrant pain, epigastric pain. COMPARISON: None available. TECHNIQUE: Complete abdominal ultrasound was performed on June 27, 2019. FINDINGS: Examination is slightly limited secondary to overlying bowel gas. The liver is mildly enlarged measuring nearly 21 cm. No focal hepatic mass. The gallbladder is predominately decompressed. The gallbladder wall demonstrates borderline wall thickening at 0.3 cm. There is however no evidence of gallstones or pericholecystic fluid. The common bile duct is obscured by overlying bowel gas. The pancreas is predominately obscured by overlying bowel gas. The spleen is within normal limits in size and is otherwise unremarkable. The visualized portions of the aorta are unremarkable, though portions of the aorta are obscured by overlying bowel gas. The right kidney is within normal limits in size. A 1.7 x 1.2 x 1.2 cm heterogeneous lesion is noted within the mid right kidney. The central aspect demonstrates a hyperechoic appearance, though there is no posterior acoustic enhancement. The periphery of this lesion demonstrates a hypoechoic appearance. An additional 1.3 cm cystic lesion is noted within the mid right kidney. No evidence of hydronephrosis. Left kidney measures 12.5 x 5.3 x 5.1 cm. Normal corticomedullary differentiation without evidence of hydronephrosis. No significant free fluid. Negative sonographic Valerio sign. IMPRESSION: Heterogeneous 1.7 cm lesion within the mid right kidney. Although this may relate to a renal calculus with associated calyceal diverticulum, there is no posterior acoustic shadowing. Therefore, additional etiologies including an angiomyolipoma could be considered. CT of the abdomen without contrast would be able to help evaluate this abnormality. Mild hepatomegaly. Additional findings as described above on this slightly limited examination. Dictated by: Dictated on workstation # [id number]
== END ==
LOC: RAD 07:43
PROVIDERS: ATTEND Family Medicine
DX: N28.9 Disorder of kidney and ureter, unspecified (principal); K57.90 Diverticulosis of intestine, part unspecified, without perforation or abscess without bleeding; R16.0 Hepatomegaly, not elsewhere classified; K82.8 Other specified diseases of gallbladder
CPT/HCPCS: 76700

== ENCOUNTER 2019-06-30 07:40 | Outpatient (RCR) | payer MEDICARE ==
[2019-06-23 13:00] VITALS: BP 121/58
[~2019-06-30] VITALS: Ht 182.9 cm; Wt 90.9 kg
[~2019-06-30 07:40] MED LIST changes: +FERRIC CARBOXYMALTOSE INJ 750 MG in NS (IVPB) 250 ML IV SCH
[2019-06-30 07:45] VITALS: BP 113/50
--- NOTE | 2019-06-30 08:20 | NUR ---
DR. JACKMAN CALLED AT THIS TIME TO SEE IF PT. CAN GO AHEAD AND GET HIS INJECTAFER TODAY. DR. FLEMING'D INJECTAFER FOR TODAY INSTEAD OF NEXT WEEK.
[2019-06-30] MEDS ORDERED: FERRIC CARBOXYMALTOSE INJ 750 MG in NS (IVPB) 250 ML IV ONE (08:30)
== END 2019-06-30 09:10 | disposition home or self-care (01) ==
LOC: SDC 07:40
PROVIDERS: ATTEND Family Medicine
DX: D50.9 Iron deficiency anemia, unspecified (principal)
CPT/HCPCS: 96365

== ENCOUNTER → 2019-07-04 | Outpatient (CLI) | payer MEDICARE ==
[~2019-07-04] MED LIST changes: -FERRIC CARBOXYMALTOSE INJ 750 MG in NS (IVPB) 250 ML IV SCH
--- NOTE | 2019-07-04 10:48 | Diagnostic Imaging Report ---
PROCEDURE: CT abdomen without contrast. TECHNIQUE: Multiple contiguous axial images were obtained through the abdomen without the use of intravenous contrast. Auto Exposure Controls were utilized during the CT exam to meet ALARA standards for radiation dose reduction. INDICATION: Renal cystic lesion. FINDINGS: There are bilateral substantial renal atherosclerotic vascular calcifications. These calcifications are partly visualized on recent ultrasound. A tiny low density nodule in the mid to lower 3rd of the right kidney posteriorly barely perceptible at CT where it measures almost about 7 mm corresponds to a tiny cyst present at ultrasound. There is no hydroureteronephrosis and no opaque nephrolithiasis. There is extensive nonaneurysmal aortoiliac and mesenteric atherosclerotic vascular calcifications. There were no findings suggestive of end organ ischemia. There is no bowel, biliary or urinary tract obstruction. The unopacified liver showed no focal abnormality. There is no gallstone or ductal dilatation. Spleen, adrenals and pancreas all unremarkable. IMPRESSION: Extensive atherosclerotic vascular calcifications, tiny right lower pole renal cortical cyst. No hydronephrosis or nephrolithiasis. No acute appearing abnormalities. Dictated by: Dictated on workstation # [id number]
== END ==
LOC: RAD 09:57
PROVIDERS: ATTEND Family Medicine
DX: N28.1 Cyst of kidney, acquired (principal); I12.9 Hypertensive chronic kidney disease with stage 1 through stage 4 chronic kidney disease, or unspecified chronic kidney disease; N18.9 Chronic kidney disease, unspecified
CPT/HCPCS: 74150

== ENCOUNTER 2019-07-17 05:04 | Emergency (ER) | payer MEDICARE ==
[~2019-07-17] VITALS: Ht 182.8 cm; Wt 81.8 kg
[2019-07-17] MEDS ORDERED: methylPREDNISolone 125 MG (Solu-MEDROL) VIAL IV STA (05:14)
[2019-07-17] MEDS ORDERED: RT-ALBUTEROL/IPRATROPIUM 3 ML (DUONEB) VIAL ONE (05:14)
[2019-07-17] MEDS ORDERED: RT-ALBUTEROL SULF 2.5 MG/3 ML PRE-MIX VIAL ONE (05:14)
[2019-07-17] MEDS ORDERED: RT-ALBUTEROL SULF 2.5 MG/3 ML PRE-MIX VIAL INH STA ×2 (05:14→05:52)
[2019-07-17] MEDS ORDERED: RT-ALBUTEROL/IPRATROPIUM 3 ML (DUONEB) VIAL INH ONE (05:15)
[2019-07-17 05:21] LABS: BASOPHILS % (AUTO) 0 % (0-10); EOSINOPHILS # (AUTO) 0.2 10^3/uL (0.0-0.3); EOSINOPHILS % (AUTO) 2 % (0-10); HEMATOCRIT 38 % (40-54); HEMOGLOBIN 12.1 G/DL (13.3-17.7); LYMPHOCYTES # (AUTO) 0.7 X 10^3 (1.0-4.0); LYMPHOCYTES % (AUTO) 8 % (12-44); MEAN CORPUSCULAR HEMOGLOBIN 29 PG (25-34); MEAN CORPUSCULAR HGB CONC 32 G/DL (32-36); MEAN CORPUSCULAR VOLUME 89 FL (80-99); MONOCYTES # (AUTO) 1.3 X 10^3 (0.0-1.0); MONOCYTES % (AUTO) 16 % (0-12); NEUTROPHILS # (AUTO) 5.9 X 10^3 (1.8-7.8); NEUTROPHILS % (AUTO) 73 % (42-75); PLATELET COUNT 199 10^3/uL (130-400); RED CELL DISTRIBUTION WIDTH 15.3 % (10.0-14.5); WHITE BLOOD COUNT 8.1 10^3/uL (4.3-11.0)
--- NOTE | 2019-07-17 05:27 | ED Respiratory ---
General Stated Complaint: SOB Source: patient, family Exam Limitations: no limitations (LELE DEGROOT MD) History of Present Illness Date Seen by Provider: Jul 17, 2019 Time Seen by Provider: 05:06 Initial Comments Here with report of respiratory difficulty over the last 2-3 days that is markedly worse this morning. He has been doing his albuterol and that has helped but it's not resolving and well. He was seen by a few days ago and given a steroid shot and that has not resolved the issue either. Denies chest pain, nausea, vomiting or diarrhea. Denies fever or chills. Does have long-standing COPD and has occasional exacerbations. Timing/Duration: getting worse, other (few days) Severity: moderate Prior Episodes/Possible Cause: frequent episodes Modifying Factors: Improves With Albuterol Nebulizer Associated Symptoms: cough; No fever/chills; shortness of breath; No sore throat, No wheezing (LELE DEGROOT MD) Allergies and Home Medications Allergies Coded Allergies: hydrocodone (Verified Allergy, Unknown, NAUSEA, 03/25/19) oxycodone (Verified Allergy, Unknown, NAUSEA, 03/25/19) Home Medications Acetaminophen 500 Mg Tablet, 1,000 MG PO Q6H PRN for PAIN-MILD, (Reported) Albuterol Sulfate 1 Puff Puff, 2 PUFF INH Q4H PRN for SHORTNESS OF BREATH, (Reported) 1 PUFF = 90 MCG Amlodipine Besylate 5 Mg Tablet, 5 MG PO DAILY, (Reported) Aspirin 81 Mg Tablet.dr, 81 MG PO DAILY, (Reported) Budesonide/Formoterol Fumarate 10.2 Gm Hfa.aer.ad, 2 PUFF IH BID PRN for SHORTNESS OF BREATH, (Reported) Carbidopa/Levodopa 1 Each Tablet.er, 1 TAB PO TID, (Reported) Insulin Aspart 100 Unit/1 Ml Susp, 10 UNIT SQ AC, (Reported) Insulin Detemir 100 Unit/1 Ml Insuln.pen, 20 UNITS SC HS, (Reported) Ipratropium/Albuterol Sulfate 3 Ml Ampul.neb, 3 ML NEB Q4H, (Reported) Isosorbide Mononitrate 30 Mg Tab.er.24h, 30 MG PO DAILY, (Reported) Losartan Potassium 100 Mg Tablet, 100 MG PO DAILY, (Reported) Magnesium Oxide 400 Mg Tablet, 400 MG PO DAILY, (Reported) Menthol 113.6 Gm Gel..gram., 1 GM TP DAILY PRN for MUSCLE CRAMPS, (Reported) Nystatin 100,000 Unit/1 Ml Oral.susp, 5 ML PO QID, (Reported) Pantoprazole Sodium 40 Mg Tablet.dr, 40 MG PO DAILY, (Reported) Potassium Gluconate 99 Mg Tablet, 99 MG PO DAILY, (Reported) Prednisone 20 Mg Tab, 20 MG PO DAILY 1 tab twice a day for 4 days then 1 tab daily for 4 days Prescribed by: YVETTE JACKMAN on 03/26/19 1320 Ropinirole HCl 4 Mg Tablet, 12 MG PO HS, (Reported) TAKES 3 (4MG) TABLETS Tramadol HCl 50 Mg Tablet, 50 MG PO HS PRN for PAIN-MODERATE, (Reported) Patient Home Medication List Home Medication List Reviewed: Yes (flat in so) (LELE DEGROOT MD) Review of Systems Review of Systems Constitutional: see HPI; No chills, No fever EENTM: no symptoms reported Respiratory: cough, short of breath, wheezing Cardiovascular: No chest pain, No edema Gastrointestinal: No abdominal pain, No nausea, No vomiting Genitourinary: no symptoms reported Musculoskeletal: no symptoms reported Skin: no symptoms reported Psychiatric/Neurological: No Symptoms Reported (LELE DEGROOT MD) All Other Systems Reviewed Negative Unless Noted: Yes (LELE DEGROOT MD) Past Xorvlxz-Dvqdmf-Jcokns Hx Past Med/Social Hx: Reviewed Nursing Past Med/Soc Hx (LELE DEGROOT MD) Patient Social History Alcohol Use: Denies Use Alcohol Beverage of Choice: Beer Recreational Drug Use: No Smoking Status: Former Smoker Type Used: Cigars Former Smoker, Quit: May 25, 1996 2nd Hand Smoke Exposure: Yes Recent Foreign Travel: No Contact w/Someone Who Travel: No Recent Hopitalizations: Yes (12/18/2018) (LELE DEGROOT MD) Immunizations Up To Date Tetanus Booster (TDap): Unknown PED Vaccines UTD: Yes Date of Pneumonia Vaccine: Sep 25, 2018 Date of Influenza Vaccine: Sep 25, 2018 (LELE DEGROOT MD) Seasonal Allergies Seasonal Allergies: No (LELE DEGROOT MD) Past Medical History Surgeries: Yes (CATARACTS, KNEE SCOPE, SKIN CANCERS REMOVED) Coronary Stent, Orthopedic Respiratory: Yes (O2 4L NC) Sleep Apnea, COPD Currently Using CPAP: Yes Currently Using BIPAP: No Cardiac: Yes (stents x5) Coronary Artery Disease, Heart Attack, High Cholesterol, Hypertension Neurological: No Reproductive Disorders: No Sexually Transmitted Disease: No HIV/AIDS: No Genitourinary: No Gastrointestinal: No Gastroesophageal Reflux, Chronic Diarrhea Musculoskeletal: Yes Arthritis, Fractures Endocrine: Yes Diabetes, Insulin dep HEENT: No Cataract Loss of Vision: Bilateral Hearing Impairment: Hard of Hearing Cancer: Yes Skin Did You Recieve Any Treatments: Yes What Type of Treatment Did You: Surgical Intervention Psychosocial: Yes Anxiety Integumentary: Yes (ACTINIC KERATOSIS, SKIN CANCER) Eczema Blood Disorders: No Adverse Reaction/Blood Tranf: No (HAS HAD BLOOD WITH NO REACTION) (LELE DEGROOT MD) Family Medical History Reviewed Nursing Family Hx (LELE DEGROOT MD) Cancer 09 BROTHER Cancer of colon 09 BROTHER Cataract 03 MOTHER Chest pain 03 MOTHER Congenital heart disease 03 FATHER Congestive heart failure 03 FATHER Family history: Cardiovascular disease 03 FATHER 03 MOTHER Family history: Diabetes mellitus 03 FATHER Family history: Gastrointestinal disease 03 MOTHER Family history: Hypertension 03 MOTHER Hearing loss 03 FATHER Heart disease 03 FATHER History of - respiratory disease 03 FATHER Kidney disease 03 FATHER Myocardial infarction 03 FATHER Stroke 03 FATHER No Family History of: Abdominal aortic aneurysm Davis's disease Alcoholism Aphasia Cystic fibrosis Dementia Dysphagia Family history: Allergy Family history: Alzheimer's disease Family history: Arthritis Family history: Asthma Family history: Breast disease Family history: Coronary thrombosis Family history: Glaucoma Family history: Osteoporosis Family history: Thyroid disorder Headache Hereditary disease History of - anemia History of - disorder History of drug abuse Human immunodeficiency virus (HIV) seropositivity Hypercholesterolemia Infertile Malignant neoplasm of lung Parkinson's disease Prostate cancer Psychotic disorder Seizure disorder Tuberculosis Visual impairment Physical Exam Vital Signs - First Documented 07/17/19 05:06 Temp 36.8 Pulse 86 Resp 30 B/P (MAP) 132/58 (82) Pulse Ox 97 O2 Delivery Nasal Cannula O2 Flow Rate 5.00 (JOSE KATZ) Capillary Refill : (LELE DEGROOT MD) Height: 6'0.00" Weight: 204lbs. 9.0oz. 92.321698tg; 27.8 BMI Method:Stated General Appearance: WD/WN, moderate distress HEENT: PERRL/EOMI, pharynx normal Neck: full range of motion, supple Respiratory: respiratory distress, decreased breath sounds, wheezing Cardiovascular: regular rate, rhythm, no murmur Gastrointestinal: non tender, soft, no organomegaly Extremities: non-tender, normal inspection, no pedal edema, no calf tenderness Neurologic/Psychiatric: alert, normal mood/affect, oriented x 3 Skin: normal color, warm/dry (LELE DEGROOT MD) Progress/Results/Core Measures Suspected Sepsis SIRS Temperature: Pulse: Respiratory Rate: Blood Pressure / Mean: (LELE DEGROOT MD) Results/Orders Lab Results Laboratory Tests Test 07/17/19 05:14 Range/Units White Blood Count 8.1 4.3-11.0 10^3/uL Red Blood Count 4.23 L 4.35-5.85 10^6/uL Hemoglobin 12.1 L 13.3-17.7 G/DL Hematocrit 38 L 40-54 % Mean Corpuscular Volume 89 80-99 FL Mean Corpuscular Hemoglobin 29 25-34 PG Mean Corpuscular Hemoglobin Concent 32 32-36 G/DL Red Cell Distribution Width 15.3 H 10.0-14.5 % Platelet Count 199 130-400 10^3/uL Mean Platelet Volume 9.0 7.4-10.4 FL Neutrophils (%) (Auto) 73 42-75 % Lymphocytes (%) (Auto) 8 L 12-44 % Monocytes (%) (Auto) 16 H 0-12 % Eosinophils (%) (Auto) 2 0-10 % Basophils (%) (Auto) 0 0-10 % Neutrophils # (Auto) 5.9 1.8-7.8 X 10^3 Lymphocytes # (Auto) 0.7 L 1.0-4.0 X 10^3 Monocytes # (Auto) 1.3 H 0.0-1.0 X 10^3 Eosinophils # (Auto) 0.2 0.0-0.3 10^3/uL Basophils # (Auto) 0.0 0.0-0.1 10^3/uL Sodium Level 137 135-145 MMOL/L Potassium Level 4.6 3.6-5.0 MMOL/L Chloride Level 98 98-107 MMOL/L Carbon Dioxide Level 26 21-32 MMOL/L Anion Gap 13 5-14 MMOL/L Blood Urea Nitrogen 19 H 7-18 MG/DL Creatinine 1.09 0.60-1.30 MG/DL Estimat Glomerular Filtration Rate > 60 BUN/Creatinine Ratio 17 Glucose Level 130 H 70-105 MG/DL Calcium Level 9.6 8.5-10.1 MG/DL Corrected Calcium 9.5 8.5-10.1 MG/DL Total Bilirubin 0.5 0.1-1.0 MG/DL Aspartate Amino Transf (AST/SGOT) 10 5-34 U/L Alanine Aminotransferase (ALT/SGPT) < 6 0-55 U/L Alkaline Phosphatase 61 40-136 U/L Troponin I < 0.028 <0.028 NG/ML C-Reactive Protein High Sensitivity 10.13 H 0.00-0.50 MG/DL B-Type Natriuretic Peptide 29.3 <100.0 PG/ML Total Protein 7.1 6.4-8.2 GM/DL Albumin 4.1 3.2-4.5 GM/DL (JOSE KATZ) Medications Given in ED Current Medications Medications Dose Ordered Sig/Regino Route Start Time Stop Time Status Last Admin Dose Admin Ipratropium [place] 0.5 mg ONCE ONCE IH 07/17/19 06:00 07/17/19 06:01 DC 07/17/19 06:05 0.5 MG (JOSE KATZ) Vital Signs/I&O 07/17/19 07/17/19 07/17/19 07/17/19 05:06 05:06 05:34 06:06 Temp 36.8 Pulse 86 Resp 30 B/P (MAP) 132/58 (82) Pulse Ox 97 96 93 O2 Delivery Nasal Cannula Nasal Cannula Nasal Cannula Nasal Cannula O2 Flow Rate 5.00 5.00 3.00 3.00 (JOSE KATZ) Vital Signs/I&O Capillary Refill : (LELE DEGROOT MD) Progress Note : Progress Note Seen and evaluated on arrival. IV, labs, O2 increased from his normal 3 L via nasal To 5 L via nasal. Chest x-ray ordered. Duo neb and albuterol treatment 2 ordered. Solu-Medrol 125 mg IV ordered. Monitor patient. (LELE DEGROOT MD) Progress Note #1: Time: 06:33 Progress Note Assume care of the patient at shift change. I agree with the above documented history physical exam. Patient had subjective improvement in his breathing and has objective decrease in work of breathing. Patient would prefer not to stay in the hospital. Does not have any signs of a active infection. He has not picked up the azithromycin. Plan to observe him for another hour to an hour-long and if he's showing more signs of improvement then we would agree with allowing him to trial outpatient therapy on steroids. Progress Note #2: Time: 07:18 Progress Note The patient is done with his hour-long breathing treatment and states she is ready to go home. He is having no personal breathing, accessory muscle use, retractions, increased worker breathing. His wheezing is significantly reduced to very minimal. We'll put him on prednisone and have them checked up by primary care in the next week. Return precautions been given. (JOSE KATZ) Diagnostic Imaging Diagonstic Imaging: Xray Plain Films/CT/US/NM/MRI: chest Comments NAME: DEVIN MORALES MED REC#: [id number] PT STATUS: REG ER : 1940 PHYSICIAN: LELE DEGROOT MD ADMIT DATE: 07/17/19/ER Signed Date of Exam:07/17/19 CHEST 1 VIEW, AP/PA ONLY INDICATION: Respiratory distress. TECHNIQUE: 2 frontal views of the chest were obtained. COMPARISON: 03/24/2019 FINDINGS: The lung volumes are hyperexpanded, suggestive of COPD. No focal consolidation is seen. No large pleural effusion or pneumothorax is seen. The cardiomediastinal silhouette is normal in size and contour. No acute osseous abnormality is seen. IMPRESSION: 1. Hyperexpanded lungs, suggestive of COPD. No focal consolidation or mass. Dictated by: Dictated on workstation # [id number] Dict: 07/17/[id number] Trans: 07/17/19606 [id number] Interpreted by: JUAN TEIXEIRA DO Electronically signed by: JUAN TEIXEIRA DO 07/17/19606 Reviewed: Reviewed by Me (JOSE KATZ) Departure Impression Primary Impression: COPD with acute exacerbation Disposition: HOME, SELF-CARE Condition: Improved Departure-Patient Inst. Decision time for Depature: :19 (JOSE KATZ) Referrals: YVETTE JACKMAN DO (PCP/Family) Primary Care Physician Patient Instructions: Exacerbation of COPD (DC) Add. Discharge Instructions: Continue to use her DuoNeb every 6 hours on schedule and every 2 hours as needed for breakthrough wheezing coughing or shortness of breath. Follow-up in the next week with primary care doctor. Start taking prednisone 2 tablets in the morning and 2 tablets at night for one week. Return to the ER for worsening shortness of breath despite these interventions. Scripts Prednisone (Prednisone) 20 Mg Tab 40 MG PO BID for 7 Days, #28 TAB 0 Refills Prov: JOSE KATZ 07/17/19 LELE DEGROOT MD Jul 17, 2019 05:27 JOSE KATZ Jul 17, 2019 06:35
[2019-07-17 05:41] LABS: ALANINE AMINOTRANSFERASE < 6 U/L (0-55); ALBUMIN 4.1 GM/DL (3.2-4.5); ALKALINE PHOSPHATASE 61 U/L (40-136); BILIRUBIN,TOTAL 0.5 MG/DL (0.1-1.0); BUN/CREATININE RATIO 17; CALCIUM 9.6 MG/DL (8.5-10.1); CARBON DIOXIDE 26 MMOL/L (21-32); CHLORIDE 98 MMOL/L (98-107); CREATININE SERUM 1.09 MG/DL (0.60-1.30); GFR ESTIMATED > 60; GLUCOSE 130 MG/DL (70-105); POTASSIUM 4.6 MMOL/L (3.6-5.0); SODIUM 137 MMOL/L (135-145); TOTAL PROTEIN 7.1 GM/DL (6.4-8.2)
[2019-07-17] MEDS ORDERED: RT-IPRATROPIUM (ATROVENT) 0.5MG/2.5ML AMP IH ONE (06:00)
--- NOTE | 2019-07-17 06:03 | Diagnostic Imaging Report ---
INDICATION: Respiratory distress. TECHNIQUE: 2 frontal views of the chest were obtained. COMPARISON: 03/24/2019 FINDINGS: The lung volumes are hyperexpanded, suggestive of COPD. No focal consolidation is seen. No large pleural effusion or pneumothorax is seen. The cardiomediastinal silhouette is normal in size and contour. No acute osseous abnormality is seen. IMPRESSION: 1. Hyperexpanded lungs, suggestive of COPD. No focal consolidation or mass. Dictated by: Dictated on workstation # [id number]
[2019-07-17] MEDS ORDERED: PRD20T PO (07:21)
[2019-07-17 07:30] VITALS: BP 126/45
== END 2019-07-17 07:30 | disposition home or self-care (01) ==
LOC: EDUNIT# 05:04 → ER 05:06
DX: J44.1 Chronic obstructive pulmonary disease with (acute) exacerbation (principal); I10 Essential (primary) hypertension; E11.9 Type 2 diabetes mellitus without complications; I25.10 Atherosclerotic heart disease of native coronary artery without angina pectoris; E78.00 Pure hypercholesterolemia, unspecified; I25.2 Old myocardial infarction; K21.9 Gastro-esophageal reflux disease without esophagitis; F41.9 Anxiety disorder, unspecified; G47.30 Sleep apnea, unspecified; Z85.828 Personal history of other malignant neoplasm of skin; Z99.81 Dependence on supplemental oxygen; Z95.5 Presence of coronary angioplasty implant and graft; Z99.89 Dependence on other enabling machines and devices; Z88.5 Allergy status to narcotic agent; Z79.82 Long term (current) use of aspirin; Z79.4 Long term (current) use of insulin; Z79.52 Long term (current) use of systemic steroids; Z87.891 Personal history of nicotine dependence; Z77.22 Contact with and (suspected) exposure to environmental tobacco smoke (acute) (chronic); Z80.0 Family history of malignant neoplasm of digestive organs; Z82.49 Family history of ischemic heart disease and other diseases of the circulatory system
CPT/HCPCS: 36415; 71045; 80053; 83880; 84484; 85025; 86141; 87070; 87077; 87185; 87186; 87205; 94640

== ENCOUNTER 2019-07-25 12:50 | Outpatient (CLI) | payer MEDICARE ==
[~2019-07-25] VITALS: Ht 182 cm; Wt 84.0 kg
[2019-07-29] MEDS ORDERED: CLOP75TA69 PO (13:03)
[2019-07-29] MEDS ORDERED: OMEP20TA7 PO (14:46)
== END 2019-07-25 13:14 | disposition home or self-care (01) ==
LOC: PREOP 12:50
PROVIDERS: ATTEND Surgery
DX: Z01.818 Encounter for other preprocedural examination (principal)

== ENCOUNTER 2019-08-14 11:43 | Emergency (ER) | payer MEDICARE ==
[~2019-08-14] VITALS: Ht 182.9 cm; Wt 85.8 kg
[~2019-08-14 11:43] MED LIST changes: +CLOP75TA69 PO; +OMEP20TA7 PO
[2019-08-14] MEDS ORDERED: methylPREDNISolone 125 MG (Solu-MEDROL) VIAL IV STA (11:51)
[2019-08-14] MEDS ORDERED: RT-ALBUTEROL/IPRATROPIUM 3 ML (DUONEB) VIAL INH ONE (12:00)
[2019-08-14 12:07] LABS: BASOPHILS % (AUTO) 1 % (0-10); EOSINOPHILS # (AUTO) 0.2 10^3/uL (0.0-0.3); EOSINOPHILS % (AUTO) 3 % (0-10); HEMATOCRIT 38 % (40-54); HEMOGLOBIN 12.5 G/DL (13.3-17.7); LYMPHOCYTES # (AUTO) 0.3 X 10^3 (1.0-4.0); LYMPHOCYTES % (AUTO) 7 % (12-44); MEAN CORPUSCULAR HEMOGLOBIN 30 PG (25-34); MEAN CORPUSCULAR HGB CONC 33 G/DL (32-36); MEAN CORPUSCULAR VOLUME 91 FL (80-99); MEAN PLATELET VOLUME 9.2 FL (7.4-10.4); MONOCYTES # (AUTO) 0.9 X 10^3 (0.0-1.0); MONOCYTES % (AUTO) 19 % (0-12); NEUTROPHILS # (AUTO) 3.4 X 10^3 (1.8-7.8); NEUTROPHILS % (AUTO) 71 % (42-75); PLATELET COUNT 165 10^3/uL (130-400); RED CELL DISTRIBUTION WIDTH 16.7 % (10.0-14.5); WHITE BLOOD COUNT 4.8 10^3/uL (4.3-11.0)
[2019-08-14 12:26] LABS: ALANINE AMINOTRANSFERASE 17 U/L (0-55); ALBUMIN 4.3 GM/DL (3.2-4.5); ALKALINE PHOSPHATASE 55 U/L (40-136); BILIRUBIN,TOTAL 0.3 MG/DL (0.1-1.0); BUN/CREATININE RATIO 19; CALCIUM 9.4 MG/DL (8.5-10.1); CARBON DIOXIDE 27 MMOL/L (21-32); CHLORIDE 101 MMOL/L (98-107); CREATININE SERUM 1.04 MG/DL (0.60-1.30); GFR ESTIMATED > 60; GLUCOSE 142 MG/DL (70-105); POTASSIUM 4.4 MMOL/L (3.6-5.0); SODIUM 138 MMOL/L (135-145); TOTAL PROTEIN 6.7 GM/DL (6.4-8.2)
--- NOTE | 2019-08-14 12:30 | Diagnostic Imaging Report ---
INDICATION: Shortness of breath. Comparison made with prior examination from 07/17/2019. FINDINGS: There is air trapping compatible with COPD. There is some interstitial scarring in the lung bases. Heart size is stable. There is no pleural effusion or pneumothorax. IMPRESSION: COPD with some chronic-appearing bibasilar interstitial scarring. Dictated by: Dictated on workstation # [id number]
[2019-08-14] MEDS ORDERED: AZIT250T12 PO (12:45)
[2019-08-14] MEDS ORDERED: PRD20T PO (12:45)
--- NOTE | 2019-08-14 12:45 | ED Respiratory ---
General Chief Complaint: Respiratory Problems Stated Complaint: SOA Nursing Triage Note: PT AMBULATE TO ROOM 06 WITH C/O SOB STARTING THIS MORNING. PT C/O CHRONIC COPD. PT REPORTS O2 AT HOME OF 3LMP. PT NOT USING O2 WHEN PRESENTING TO ED. Source: patient Exam Limitations: no limitations History of Present Illness Date Seen by Provider: Aug 14, 2019 Time Seen by Provider: 11:45 Initial Comments Patient presents with shortness of breath that started this morning. Patient reports that he has chronic COPD and is normally on 3 L of oxygen at home. Feels that he is having some increased phlegm and cough. No fevers or chills. No chest pain but some mild chest tightness. No other systemic complaints. Allergies and Home Medications Allergies Coded Allergies: hydrocodone (Verified Allergy, Mild, NAUSEA, 07/25/19) oxycodone (Verified Allergy, Mild, NAUSEA, 07/25/19) Home Medications Acetaminophen 500 Mg Tablet, 1,000 MG PO Q6H PRN for PAIN-MILD, (Reported) Albuterol Sulfate 1 Puff Puff, 2 PUFF INH Q4H PRN for SHORTNESS OF BREATH, (Reported) 1 PUFF = 90 MCG Amlodipine Besylate 5 Mg Tablet, 5 MG PO DAILY, (Reported) Aspirin 81 Mg Tablet.dr, 81 MG PO DAILY, (Reported) Budesonide/Formoterol Fumarate 10.2 Gm Hfa.aer.ad, 2 PUFF IH BID PRN for SHORTNESS OF BREATH, (Reported) Carbidopa/Levodopa 1 Each Tablet.er, 1 TAB PO TID, (Reported) Clopidogrel Bisulfate 75 Mg Tablet, 75 MG PO DAILY, (Reported) Insulin Aspart 100 Unit/1 Ml Susp, 10 UNIT SQ AC, (Reported) Insulin Detemir 100 Unit/1 Ml Insuln.pen, 20 UNITS SC HS, (Reported) Ipratropium/Albuterol Sulfate 3 Ml Ampul.neb, 3 ML NEB Q4H, (Reported) Isosorbide Mononitrate 30 Mg Tab.er.24h, 30 MG PO DAILY, (Reported) Losartan Potassium 100 Mg Tablet, 100 MG PO DAILY, (Reported) Magnesium Oxide 400 Mg Tablet, 400 MG PO DAILY, (Reported) Menthol 113.6 Gm Gel..gram., 1 GM TP DAILY PRN for MUSCLE CRAMPS, (Reported) Nystatin 100,000 Unit/1 Ml Oral.susp, 5 ML PO QID, (Reported) Omeprazole 20 Mg Tablet.dr, 20 MG PO DAILY Prescribed by: STEVAN PATTON on 07/29/19 1446 Pantoprazole Sodium 40 Mg Tablet.dr, 40 MG PO DAILY, (Reported) Potassium Gluconate 99 Mg Tablet, 99 MG PO DAILY, (Reported) Prednisone 20 Mg Tab, 20 MG PO DAILY 1 tab twice a day for 4 days then 1 tab daily for 4 days Prescribed by: YVETTE JACKMAN on 03/26/19 1320 Prednisone 20 Mg Tab, 40 MG PO BID Prescribed by: JOSE KATZ on 07/17/19 0721 Ropinirole HCl 4 Mg Tablet, 12 MG PO HS, (Reported) TAKES 3 (4MG) TABLETS Tramadol HCl 50 Mg Tablet, 50 MG PO HS PRN for PAIN-MODERATE, (Reported) Patient Home Medication List Home Medication List Reviewed: Yes Review of Systems Review of Systems Constitutional: No chills, No fever Respiratory: cough, phlegm, short of breath Cardiovascular: No chest pain Gastrointestinal: No abdominal pain, No nausea, No vomiting Genitourinary: no symptoms reported Musculoskeletal: no symptoms reported Skin: no symptoms reported Psychiatric/Neurological: No Symptoms Reported Past Dxvszux-Rptuve-Jqhkcm Hx Past Med/Social Hx: Reviewed Nursing Past Med/Soc Hx Patient Social History Alcohol Use: Denies Use Number of Drinks Today: AA Alcohol Beverage of Choice: Beer Recreational Drug Use: No Smoking Status: Former Smoker Type Used: Cigars Former Smoker, Quit: May 25, 1996 2nd Hand Smoke Exposure: Yes Recent Foreign Travel: No Contact w/Someone Who Travel: No Recent Infectious Disease Expo: No Recent Hopitalizations: No Physical Abuse: No Sexual Abuse: No Mistreated: No Fear: No Immunizations Up To Date Tetanus Booster (TDap): Unknown PED Vaccines UTD: Yes Date of Pneumonia Vaccine: Sep 25, 2018 Date of Influenza Vaccine: Sep 25, 2018 Seasonal Allergies Seasonal Allergies: No Past Medical History Surgeries: Yes (CATARACTS, KNEE SCOPE, SKIN CANCERS REMOVED) Coronary Stent, Orthopedic Respiratory: Yes (O2 3L NC) Sleep Apnea, COPD Currently Using CPAP: Yes Currently Using BIPAP: No Cardiac: Yes (stents x5) Coronary Artery Disease, Heart Attack, High Cholesterol, Hypertension Neurological: No Reproductive Disorders: No Sexually Transmitted Disease: No HIV/AIDS: No Genitourinary: No Gastrointestinal: Yes Gastroesophageal Reflux Musculoskeletal: Yes Arthritis, Fractures Endocrine: Yes Diabetes, Insulin dep HEENT: Yes Cataract Loss of Vision: Bilateral Hearing Impairment: Hard of Hearing Cancer: Yes Skin Did You Recieve Any Treatments: Yes What Type of Treatment Did You: Surgical Intervention Psychosocial: Yes Anxiety Integumentary: Yes (ACTINIC KERATOSIS, SKIN CANCER) Eczema Blood Disorders: No Adverse Reaction/Blood Tranf: No (HAS HAD BLOOD WITH NO REACTION) Family Medical History Cancer 09 BROTHER Cancer of colon 09 BROTHER Cataract 03 MOTHER Chest pain 03 MOTHER Congenital heart disease 03 FATHER Congestive heart failure 03 FATHER Family history: Cardiovascular disease 03 FATHER 03 MOTHER Family history: Diabetes mellitus 03 FATHER Family history: Gastrointestinal disease 03 MOTHER Family history: Hypertension 03 MOTHER Hearing loss 03 FATHER Heart disease 03 FATHER History of - respiratory disease 03 FATHER Kidney disease 03 FATHER Myocardial infarction 03 FATHER Stroke 03 FATHER No Family History of: Abdominal aortic aneurysm Jae's disease Alcoholism Aphasia Cystic fibrosis Dementia Dysphagia Family history: Allergy Family history: Alzheimer's disease Family history: Arthritis Family history: Asthma Family history: Breast disease Family history: Coronary thrombosis Family history: Glaucoma Family history: Osteoporosis Family history: Thyroid disorder Headache Hereditary disease History of - anemia History of - disorder History of drug abuse Human immunodeficiency virus (HIV) seropositivity Hypercholesterolemia Infertile Malignant neoplasm of lung Parkinson's disease Prostate cancer Psychotic disorder Seizure disorder Tuberculosis Visual impairment Physical Exam Vital Signs - First Documented 08/14/19 08/14/19 11:44 11:45 Temp 36.8 Pulse 95 Resp 20 B/P (MAP) 135/65 (88) Pulse Ox 95 O2 Delivery Nasal Cannula O2 Flow Rate 3.00 Capillary Refill : Less Than 3 Seconds Height: 6'0.00" Weight: 204lbs. 9.0oz. [id number]; 25.00 BMI Method:Stated General Appearance: WD/WN, no apparent distress HEENT: PERRL/EOMI, normal ENT inspection Neck: non-tender Respiratory: decreased breath sounds (mild bibasilar) Cardiovascular: normal peripheral pulses, regular rate, rhythm Gastrointestinal: non tender, soft Extremities: non-tender Skin: normal color, warm/dry Progress/Results/Core Measures Suspected Sepsis Recent Fever Within 48 Hours: No Infection Criteria Present: None New/Unexplained Altered Menta: No Sepsis Screen: No Definite Risk SIRS Temperature: Pulse: 95 Respiratory Rate: 20 Laboratory Tests 08/14/19 12:02: White Blood Count 4.8 Blood Pressure 135 /65 Mean: 88 Laboratory Tests 08/14/19 12:02: Creatinine 1.04, Platelet Count 165, Total Bilirubin 0.3 Results/Orders Lab Results Laboratory Tests Test 08/14/19 12:02 Range/Units White Blood Count 4.8 4.3-11.0 10^3/uL Red Blood Count 4.24 L 4.35-5.85 10^6/uL Hemoglobin 12.5 L 13.3-17.7 G/DL Hematocrit 38 L 40-54 % Mean Corpuscular Volume 91 80-99 FL Mean Corpuscular Hemoglobin 30 25-34 PG Mean Corpuscular Hemoglobin Concent 33 32-36 G/DL Red Cell Distribution Width 16.7 H 10.0-14.5 % Platelet Count 165 130-400 10^3/uL Mean Platelet Volume 9.2 7.4-10.4 FL Neutrophils (%) (Auto) 71 42-75 % Lymphocytes (%) (Auto) 7 L 12-44 % Monocytes (%) (Auto) 19 H 0-12 % Eosinophils (%) (Auto) 3 0-10 % Basophils (%) (Auto) 1 0-10 % Neutrophils # (Auto) 3.4 1.8-7.8 X 10^3 Lymphocytes # (Auto) 0.3 L 1.0-4.0 X 10^3 Monocytes # (Auto) 0.9 0.0-1.0 X 10^3 Eosinophils # (Auto) 0.2 0.0-0.3 10^3/uL Basophils # (Auto) 0.0 0.0-0.1 10^3/uL Sodium Level 138 135-145 MMOL/L Potassium Level 4.4 3.6-5.0 MMOL/L Chloride Level 101 98-107 MMOL/L Carbon Dioxide Level 27 21-32 MMOL/L Anion Gap 10 5-14 MMOL/L Blood Urea Nitrogen 20 H 7-18 MG/DL Creatinine 1.04 0.60-1.30 MG/DL Estimat Glomerular Filtration Rate > 60 BUN/Creatinine Ratio 19 Glucose Level 142 H 70-105 MG/DL Calcium Level 9.4 8.5-10.1 MG/DL Corrected Calcium 9.2 8.5-10.1 MG/DL Total Bilirubin 0.3 0.1-1.0 MG/DL Aspartate Amino Transf (AST/SGOT) 15 5-34 U/L Alanine Aminotransferase (ALT/SGPT) 17 0-55 U/L Alkaline Phosphatase 55 40-136 U/L Total Protein 6.7 6.4-8.2 GM/DL Albumin 4.3 3.2-4.5 GM/DL My Orders Orders - RULA GARCIA DO Cbc With Automated Diff (08/14/19 11:51) Comprehensive Metabolic Panel (08/14/19 11:51) Ekg Tracing (08/14/19 11:51) O2 (08/14/19 11:51) Ed Iv/Invasive Line Start (08/14/19 11:51) Monitor-Rhythm Ecg Trace Only (08/14/19 11:51) Albuterol/Ipra Inhalation Soln (Duoneb I (08/14/19 12:00) Methylprednisolone Sod Succ (Solu-Medrol (08/14/19 11:51) Chest 1 View, Ap/Pa Only (08/14/19 11:51) Svn Small Volume Nebulizer (08/14/19 11:51) Manual Differential (08/14/19 12:02) Medications Given in ED Current Medications Medications Dose Ordered Sig/Regino Route Start Time Stop Time Status Last Admin Dose Admin Albuterol/ Ipratropium 3 ml ONCE ONCE INH 08/14/19 12:00 08/14/19 12:01 DC 08/14/19 12:07 3 ML Vital Signs/I&O 08/14/19 08/14/19 08/14/19 11:44 11:45 12:08 Temp 36.8 Pulse 95 Resp 20 B/P (MAP) 135/65 (88) Pulse Ox 95 97 96 O2 Delivery Nasal Cannula Nasal Cannula Nasal Cannula O2 Flow Rate 3.00 3.00 3.00 Capillary Refill : Less Than 3 Seconds Blood Pressure Mean: 88 POS ECG Initial ECG Impression Date: Aug 14, 2019 Initial ECG Impression Time: 11:52 Initial ECG Rhythm: Normal Sinus Initial ECG Intervals: Normal Initial ECG Impression: Normal Departure Impression Primary Impression: COPD (chronic obstructive pulmonary disease) Qualified Codes: J44.9 - Chronic obstructive pulmonary disease, unspecified Disposition: HOME, SELF-CARE Condition: Stable Departure-Patient Inst. Referrals: YVETTE JACKMAN DO (PCP/Family) Primary Care Physician Patient Instructions: Chronic Bronchitis (DC) Scripts Azithromycin (Azithromycin) 250 Mg Tablet 250 MG PO UD, #6 TAB TAKE 2 TABLETS ON DAY ONE THEN TAKE 1 TABLET DAILY FOR FOUR MORE DAYS Prov: RULA GARCIA DO 08/14/19 Prednisone (Prednisone) 20 Mg Tab 40 MG PO DAILY, #6 TAB 0 Refills Prov: RULA GARCIA DO 08/14/19 RULA GARCIA DO Aug 14, 2019 12:45 POS
[2019-08-14 13:02] LABS: BAND NEUTROPHILS 5 %; BASOPHILS % (MANUAL) 1 %; EOSINOPHILS % (MANUAL) 3 %; LYMPHOCYTES % (MANUAL) 10 %; MONOCYTES % (MANUAL) 9 %; MYELOCYTES % 2 %; NEUTROPHILS % (MANUAL) 70 %
[2019-08-14 13:03] LABS: ANISOCYTOSIS SLIGHT
[2019-08-14 13:10] VITALS: BP 144/88
== END 2019-08-14 13:10 | disposition home or self-care (01) ==
LOC: EDUNIT# 11:43 → ER 11:44
DX: J44.9 Chronic obstructive pulmonary disease, unspecified (principal); G47.30 Sleep apnea, unspecified; I25.10 Atherosclerotic heart disease of native coronary artery without angina pectoris; I10 Essential (primary) hypertension; E78.00 Pure hypercholesterolemia, unspecified; I25.2 Old myocardial infarction; K21.9 Gastro-esophageal reflux disease without esophagitis; E11.9 Type 2 diabetes mellitus without complications; F41.9 Anxiety disorder, unspecified; Z99.81 Dependence on supplemental oxygen; Z88.5 Allergy status to narcotic agent; Z79.82 Long term (current) use of aspirin; Z79.4 Long term (current) use of insulin; Z79.52 Long term (current) use of systemic steroids; Z87.891 Personal history of nicotine dependence; Z85.828 Personal history of other malignant neoplasm of skin; Z95.5 Presence of coronary angioplasty implant and graft; Z80.0 Family history of malignant neoplasm of digestive organs; Z82.49 Family history of ischemic heart disease and other diseases of the circulatory system
CPT/HCPCS: 36415; 71045; 80053; 85007; 85027; 93005; 93041; 94640; 94760

== ENCOUNTER → 2019-08-18 | Outpatient (CLI) | payer MEDICARE ==
[2019-08-18 15:41] LABS: BASOPHILS % (AUTO) 0 % (0-10); EOSINOPHILS % (AUTO) 1 % (0-10); HEMATOCRIT 38 % (40-54); HEMOGLOBIN 12.6 G/DL (13.3-17.7); LYMPHOCYTES # (AUTO) 0.6 X 10^3 (1.0-4.0); LYMPHOCYTES % (AUTO) 13 % (12-44); MEAN CORPUSCULAR HEMOGLOBIN 30 PG (25-34); MEAN CORPUSCULAR HGB CONC 33 G/DL (32-36); MEAN CORPUSCULAR VOLUME 90 FL (80-99); MEAN PLATELET VOLUME 9.2 FL (7.4-10.4); MONOCYTES # (AUTO) 0.5 X 10^3 (0.0-1.0); MONOCYTES % (AUTO) 10 % (0-12); NEUTROPHILS # (AUTO) 3.9 X 10^3 (1.8-7.8); NEUTROPHILS % (AUTO) 76 % (42-75); PLATELET COUNT 162 10^3/uL (130-400); RED CELL DISTRIBUTION WIDTH 16.2 % (10.0-14.5); WHITE BLOOD COUNT 5.1 10^3/uL (4.3-11.0)
[2019-08-18 15:58] LABS: BUN/CREATININE RATIO 22; CREATININE SERUM 0.76 MG/DL (0.60-1.30); GFR ESTIMATED > 60
== END ==
LOC: LAB 15:15
PROVIDERS: ATTEND Nurse Practitioner Family
DX: J43.9 Emphysema, unspecified (principal); G47.33 Obstructive sleep apnea (adult) (pediatric); Z87.891 Personal history of nicotine dependence
CPT/HCPCS: 36415; 82565; 84520; 85025

== ENCOUNTER → 2019-09-05 | Outpatient (CLI) | payer MEDICARE ==
[~2019-09-05] MED LIST changes: +CATHETER FLUSH 10 ML SYR IV PRN; +HOLD METFORMIN - RECEIVED CONTRAST 20 ML VIAL IV SCH; +IOHEXOL 350 MG/ML 100 ML (OMNIPAQUE 350) VIAL IV ONE; +NS 100 ML (IVPB) BAG IV ONE
[2019-09-05 11:57] LABS: BASOPHILS % (AUTO) 0 % (0-10); EOSINOPHILS # (AUTO) 0.1 10^3/uL (0.0-0.3); EOSINOPHILS % (AUTO) 2 % (0-10); HEMATOCRIT 38 % (40-54); HEMOGLOBIN 12.6 G/DL (13.3-17.7); LYMPHOCYTES # (AUTO) 0.6 X 10^3 (1.0-4.0); LYMPHOCYTES % (AUTO) 8 % (12-44); MEAN CORPUSCULAR HEMOGLOBIN 30 PG (25-34); MEAN CORPUSCULAR HGB CONC 33 G/DL (32-36); MEAN CORPUSCULAR VOLUME 90 FL (80-99); MONOCYTES # (AUTO) 0.9 X 10^3 (0.0-1.0); MONOCYTES % (AUTO) 13 % (0-12); NEUTROPHILS # (AUTO) 5.2 X 10^3 (1.8-7.8); NEUTROPHILS % (AUTO) 76 % (42-75); PLATELET COUNT 173 10^3/uL (130-400); RED CELL DISTRIBUTION WIDTH 16.2 % (10.0-14.5); WHITE BLOOD COUNT 6.8 10^3/uL (4.3-11.0)
[2019-09-05 12:15] LABS: BUN/CREATININE RATIO 24; CREATININE SERUM 0.87 MG/DL (0.60-1.30); GFR ESTIMATED > 60
--- NOTE | 2019-09-05 15:11 | Diagnostic Imaging Report ---
PROCEDURE: CT chest with contrast only. TECHNIQUE: Multiple contiguous axial images were obtained through the chest after administration of intravenous contrast. Auto Exposure Controls were utilized during the CT exam to meet ALARA standards for radiation dose reduction. INDICATION: History of COPD, on oxygen therapy. History of skin cancer. COMPARISON: 07/26/2016. FINDINGS: 1.8 cm low-density focus in the right lobe of the thyroid gland. There is no pathologically enlarged mediastinal lymph node. Very slight soft tissue hilar prominence is noted. There is slight circumferential wall thickening of the low esophagus. Heart size is within normal limits; however, there is dense coronary artery calcification present. No pericardial effusion. Thoracic aortic contour is unremarkable. There is asymmetric contrast density through a large portion of the right main pulmonary artery. This may reflect asymmetric flow dynamics. Definitive filling defect is not suggested. There is rather marked severity of emphysematous changes about the lung parenchyma. No consolidating infiltrate. A solid, noncalcified nodule in the anterolateral aspect of the left upper lobe (image 73, series 3) is again demonstrated. This overall appears slightly increased in size currently measuring approximately 7 x 8 mm, previously 5 x 6 mm. Calcified nodule in the right lower lobe, likely granuloma. Slight nodularity along the peripheral margins of the fissure plain in the right mid lung. Low-density lesion in the posterolateral aspect and lateral aspect of the right kidney superior pole, nonspecific. Mild to moderately advanced degenerative changes about the thoracic spine. IMPRESSION: 1. Rather markedly advanced severity emphysematous changes about the lung parenchyma. 2. Small nodule in the anterolateral aspect of the left upper lobe. While this is perhaps slightly increased in size, this has been present for rather extended period of time favoring a benign process. 3. Low-density areas, incompletely characterized in the right kidney. Consideration may be given to follow-up renal ultrasound. Dictated by: Dictated on workstation # [id number]
== END ==
LOC: RAD 11:44
PROVIDERS: ATTEND Nurse Practitioner Family
DX: J43.9 Emphysema, unspecified (principal); G47.33 Obstructive sleep apnea (adult) (pediatric); R91.1 Solitary pulmonary nodule; Z87.891 Personal history of nicotine dependence
CPT/HCPCS: 36415; 71260; 82565; 84520; 85025

== ENCOUNTER → 2019-09-15 | Outpatient (CLI) | payer MEDICARE ==
[~2019-09-15] MED LIST changes: -CATHETER FLUSH 10 ML SYR IV PRN; -HOLD METFORMIN - RECEIVED CONTRAST 20 ML VIAL IV SCH; -IOHEXOL 350 MG/ML 100 ML (OMNIPAQUE 350) VIAL IV ONE; -NS 100 ML (IVPB) BAG IV ONE
== END ==
LOC: LAB 13:47
PROVIDERS: ATTEND Nurse Practitioner Family
DX: J43.9 Emphysema, unspecified (principal); G47.33 Obstructive sleep apnea (adult) (pediatric); Z87.891 Personal history of nicotine dependence

== ENCOUNTER → 2019-09-15 | Outpatient (CLI) | payer MEDICARE ==
[2019-09-15 12:37] LABS: BASOPHILS % (AUTO) 0 % (0-10); EOSINOPHILS # (AUTO) 0.2 10^3/uL (0.0-0.3); EOSINOPHILS % (AUTO) 3 % (0-10); HEMATOCRIT 37 % (40-54); HEMOGLOBIN 12.1 G/DL (13.3-17.7); LYMPHOCYTES # (AUTO) 0.4 X 10^3 (1.0-4.0); LYMPHOCYTES % (AUTO) 6 % (12-44); MEAN CORPUSCULAR HEMOGLOBIN 30 PG (25-34); MEAN CORPUSCULAR HGB CONC 33 G/DL (32-36); MEAN CORPUSCULAR VOLUME 91 FL (80-99); MEAN PLATELET VOLUME 8.9 FL (7.4-10.4); MONOCYTES # (AUTO) 0.6 X 10^3 (0.0-1.0); MONOCYTES % (AUTO) 9 % (0-12); NEUTROPHILS % (AUTO) 82 % (42-75); PLATELET COUNT 210 10^3/uL (130-400); RED CELL DISTRIBUTION WIDTH 15.3 % (10.0-14.5); WHITE BLOOD COUNT 6.1 10^3/uL (4.3-11.0)
[2019-09-15 13:02] LABS: BAND NEUTROPHILS 8 %; LYMPHOCYTES % (MANUAL) 6 %; NEUTROPHILS % (MANUAL) 75 %
[2019-09-15 13:03] LABS: BASOPHILS % (MANUAL) 0 %; EOSINOPHILS % (MANUAL) 1 %; MONOCYTES % (MANUAL) 10 %; RBC MORPH NORMAL
--- NOTE | 2019-09-15 15:04 | Diagnostic Imaging Report ---
INDICATION: EMPHYSEMA, COPD HX OF SMOKING, HYPOXEMIA REQUIRING OXYGEN COMPARISON: 08/14/2019. FINDINGS: Frontal and lateral views of the chest demonstrate normal heart size and pulmonary vascularity. The lungs are hyperinflated with flattening of the hemidiaphragms. There are no signs of infiltrate, pleural effusions or pneumothoraces. The visualized osseous structures show no acute abnormalities. IMPRESSION: 1. No acute process. No signs of infiltrates, effusions or pneumothoraces. 2. Background moderate emphysematous changes. Dictated by: Dictated on workstation # [id number]
== END ==
LOC: RAD 11:50
PROVIDERS: ATTEND Internal Medicine Critical Care Medicine
DX: J43.9 Emphysema, unspecified (principal); E04.1 Nontoxic single thyroid nodule; Z87.891 Personal history of nicotine dependence
CPT/HCPCS: 36415; 71046; 84443; 85007; 85027

== ENCOUNTER 2019-09-18 10:42 | Emergency (ER) | payer MEDICARE ==
[~2019-09-18] VITALS: Ht 182.9 cm; Wt 84.1 kg
[2019-09-18] MEDS ORDERED: NS IV 500 ML 500 ML IV ONE ×2 (10:53→13:27)
--- NOTE | 2019-09-18 11:00 | ED General ---
General Chief Complaint: Respiratory Problems Stated Complaint: SOA Source of Information: Patient Exam Limitations: No Limitations History of Present Illness Date Seen by Provider: Sep 18, 2019 Time Seen by Provider: 10:44 Initial Comments Here with report of markedly increasing shortness of air as well as fever and chills. Decreased appetite also noted. Seen by Dr. Chacon in his office on 09/15/19. Did have chest x-ray done that day and did get shot of steroids. He is taking daily prednisone and believes he may be on antibiotic. Timing/Duration: 3-4 Days, Getting Worse Severity: Moderate Associated Systoms: No Chest Pain; Cough, Fever/Chills, Loss of Appetite; No Nausea/Vomiting; Shortness of Air, Weakness Allergies and Home Medications Allergies Coded Allergies: hydrocodone (Verified Allergy, Mild, NAUSEA, 07/25/19) oxycodone (Verified Allergy, Mild, NAUSEA, 07/25/19) Home Medications Acetaminophen 500 Mg Tablet, 1,000 MG PO Q6H PRN for PAIN-MILD, (Reported) Albuterol Sulfate 1 Puff Puff, 2 PUFF INH Q4H PRN for SHORTNESS OF BREATH, (Reported) 1 PUFF = 90 MCG Amlodipine Besylate 5 Mg Tablet, 5 MG PO DAILY, (Reported) Aspirin 81 Mg Tablet.dr, 81 MG PO DAILY, (Reported) Azithromycin 250 Mg Tablet, 250 MG PO UD TAKE 2 TABLETS ON DAY ONE THEN TAKE 1 TABLET DAILY FOR FOUR MORE DAYS Prescribed by: RULA GARCIA on 08/14/19 1245 Budesonide/Formoterol Fumarate 10.2 Gm Hfa.aer.ad, 2 PUFF IH BID PRN for SHORTNESS OF BREATH, (Reported) Carbidopa/Levodopa 1 Each Tablet.er, 1 TAB PO TID, (Reported) Clopidogrel Bisulfate 75 Mg Tablet, 75 MG PO DAILY, (Reported) Insulin Aspart 100 Unit/1 Ml Susp, 10 UNIT SQ AC, (Reported) Insulin Detemir 100 Unit/1 Ml Insuln.pen, 20 UNITS SC HS, (Reported) Ipratropium/Albuterol Sulfate 3 Ml Ampul.neb, 3 ML NEB Q4H, (Reported) Isosorbide Mononitrate 30 Mg Tab.er.24h, 30 MG PO DAILY, (Reported) Losartan Potassium 100 Mg Tablet, 100 MG PO DAILY, (Reported) Magnesium Oxide 400 Mg Tablet, 400 MG PO DAILY, (Reported) Menthol 113.6 Gm Gel..gram., 1 GM TP DAILY PRN for MUSCLE CRAMPS, (Reported) Nystatin 100,000 Unit/1 Ml Oral.susp, 5 ML PO QID, (Reported) Omeprazole 20 Mg Tablet.dr, 20 MG PO DAILY Prescribed by: STEVAN PATTON on 07/29/19 1446 Pantoprazole Sodium 40 Mg Tablet.dr, 40 MG PO DAILY, (Reported) Potassium Gluconate 99 Mg Tablet, 99 MG PO DAILY, (Reported) Prednisone 20 Mg Tab, 20 MG PO DAILY 1 tab twice a day for 4 days then 1 tab daily for 4 days Prescribed by: YVETTE JACKMAN on 03/26/19 1320 Prednisone 20 Mg Tab, 40 MG PO BID Prescribed by: JOSE KATZ on 07/17/19 0721 Prednisone 20 Mg Tab, 40 MG PO DAILY Prescribed by: RULA GARCIA on 08/14/19 1245 Ropinirole HCl 4 Mg Tablet, 12 MG PO HS, (Reported) TAKES 3 (4MG) TABLETS Tramadol HCl 50 Mg Tablet, 50 MG PO HS PRN for PAIN-MODERATE, (Reported) Patient Home Medication List Home Medication List Reviewed: Yes Review of Systems Review of Systems Constitutional: see HPI, chills, fever EENTM: no symptoms reported Respiratory: see HPI Cardiovascular: No chest pain, No edema Gastrointestinal: No abdominal pain; loss of appetite; No nausea, No vomiting Genitourinary: no symptoms reported Musculoskeletal: no symptoms reported Skin: no symptoms reported All Other Systems Reviewed Negative Unless Noted: Yes Past Lyychxv-Zcmclq-Chynzh Hx Patient Social History Alcohol Beverage of Choice: Beer Type Used: Cigars Former Smoker, Quit: May 25, 1996 2nd Hand Smoke Exposure: Yes Recent Foreign Travel: No Contact w/Someone Who Travel: No Recent Hopitalizations: No Immunizations Up To Date Tetanus Booster (TDap): Unknown PED Vaccines UTD: Yes Date of Pneumonia Vaccine: Sep 25, 2018 Date of Influenza Vaccine: Sep 25, 2018 Seasonal Allergies Seasonal Allergies: No Past Medical History Surgeries: Yes (CATARACTS, KNEE SCOPE, SKIN CANCERS REMOVED) Coronary Stent, Orthopedic Respiratory: Yes (O2 3L NC) Sleep Apnea, COPD Currently Using CPAP: Yes Currently Using BIPAP: No Cardiac: Yes (stents x5) Coronary Artery Disease, Heart Attack, High Cholesterol, Hypertension Neurological: No Reproductive Disorders: No Sexually Transmitted Disease: No HIV/AIDS: No Genitourinary: No Gastrointestinal: Yes Gastroesophageal Reflux Musculoskeletal: Yes Arthritis, Fractures Endocrine: Yes Diabetes, Insulin dep HEENT: Yes Cataract Loss of Vision: Bilateral Hearing Impairment: Hard of Hearing Cancer: Yes Skin Did You Recieve Any Treatments: Yes What Type of Treatment Did You: Surgical Intervention Psychosocial: Yes Anxiety Integumentary: Yes (ACTINIC KERATOSIS, SKIN CANCER) Eczema Blood Disorders: No Adverse Reaction/Blood Tranf: No (HAS HAD BLOOD WITH NO REACTION) Family Medical History Reviewed Nursing Family Hx Cancer 09 BROTHER Cancer of colon 09 BROTHER Cataract 03 MOTHER Chest pain 03 MOTHER Congenital heart disease 03 FATHER Congestive heart failure 03 FATHER Family history: Cardiovascular disease 03 FATHER 03 MOTHER Family history: Diabetes mellitus 03 FATHER Family history: Gastrointestinal disease 03 MOTHER Family history: Hypertension 03 MOTHER Hearing loss 03 FATHER Heart disease 03 FATHER History of - respiratory disease 03 FATHER Kidney disease 03 FATHER Myocardial infarction 03 FATHER Stroke 03 FATHER No Family History of: Abdominal aortic aneurysm Victoria's disease Alcoholism Aphasia Cystic fibrosis Dementia Dysphagia Family history: Allergy Family history: Alzheimer's disease Family history: Arthritis Family history: Asthma Family history: Breast disease Family history: Coronary thrombosis Family history: Glaucoma Family history: Osteoporosis Family history: Thyroid disorder Headache Hereditary disease History of - anemia History of - disorder History of drug abuse Human immunodeficiency virus (HIV) seropositivity Hypercholesterolemia Infertile Malignant neoplasm of lung Parkinson's disease Prostate cancer Psychotic disorder Seizure disorder Tuberculosis Visual impairment Physical Exam-Suspected Sepsis Physical Exam Vital Signs Vital Signs - First Documented 09/18/19 10:43 Temp 36.9 Pulse 87 Resp 24 B/P (MAP) 138/103 (115) Pulse Ox 96 O2 Delivery Nasal Cannula O2 Flow Rate 6.00 Capillary Refill : Height, Weight, BMI Height: 6'0.00" Weight: 204lbs. 9.0oz. 92.287861gb; 25.00 BMI Method:Stated General Appearance: WD/WN, Mild Distress HEENT: PERRL/EOMI, Pharynx Normal Neck: Non Tender, Supple Respiratory: Decreased Breath Sounds, Wheezing (lower expiratory) Cardiovascular: No Murmur, Tachycardia Gastrointestinal: Non Tender, Soft Back: Normal Inspection, No CVA Tenderness, No Vertebral Tenderness Extremity: Normal Range of Motion, Non Tender Neurologic/Psychiatric: Alert, Oriented x3 Skin: normal color, warm/dry Focused Exam Lactate Level 09/18/19 10:55: Lactic Acid Level 2.06*H 09/18/19 13:18: Lactic Acid Level 1.42 Lactic Acid Level Laboratory Tests Test 09/18/19 10:55 09/18/19 13:18 Lactic Acid Level 2.06 MMOL/L (0.50-2.00) *H 1.42 MMOL/L (0.50-2.00) Progress/Results/Core Measures Suspected Sepsis SIRS Temperature: Pulse: Respiratory Rate: Laboratory Tests 09/18/19 10:55: White Blood Count 7.3 Blood Pressure / Mean: 09/18/19 10:55: Lactic Acid Level 2.06*H 09/18/19 13:18: Lactic Acid Level 1.42 Laboratory Tests 09/18/19 10:55: Creatinine 0.94, INR Comment 1.0, Platelet Count 261, Total Bilirubin 0.4 Results/Orders Lab Results Laboratory Tests Test 09/18/19 10:55 09/18/19 13:18 Range/Units White Blood Count 7.3 4.3-11.0 10^3/uL Red Blood Count 4.36 4.35-5.85 10^6/uL Hemoglobin 13.0 L 13.3-17.7 G/DL Hematocrit 40 40-54 % Mean Corpuscular Volume 91 80-99 FL Mean Corpuscular Hemoglobin 30 25-34 PG Mean Corpuscular Hemoglobin Concent 33 32-36 G/DL Red Cell Distribution Width 15.5 H 10.0-14.5 % Platelet Count 261 130-400 10^3/uL Mean Platelet Volume 9.3 7.4-10.4 FL Neutrophils (%) (Auto) 85 H 42-75 % Lymphocytes (%) (Auto) 4 L 12-44 % Monocytes (%) (Auto) 11 0-12 % Eosinophils (%) (Auto) 0 0-10 % Basophils (%) (Auto) 0 0-10 % Neutrophils # (Auto) 6.2 1.8-7.8 X 10^3 Lymphocytes # (Auto) 0.3 L 1.0-4.0 X 10^3 Monocytes # (Auto) 0.8 0.0-1.0 X 10^3 Eosinophils # (Auto) 0.0 0.0-0.3 10^3/uL Basophils # (Auto) 0.0 0.0-0.1 10^3/uL Neutrophils % (Manual) 75 % Lymphocytes % (Manual) 5 % Monocytes % (Manual) 10 % Eosinophils % (Manual) 4 % Band Neutrophils 6 % Toxic Granulation 1+ Blood Morphology Comment NORMAL Prothrombin Time 13.4 12.2-14.7 SEC INR Comment 1.0 0.8-1.4 Activated Partial Thromboplast Time 33 24-35 SEC Sodium Level 138 135-145 MMOL/L Potassium Level 4.4 3.6-5.0 MMOL/L Chloride Level 97 L 98-107 MMOL/L Carbon Dioxide Level 27 21-32 MMOL/L Anion Gap 14 5-14 MMOL/L Blood Urea Nitrogen 23 H 7-18 MG/DL Creatinine 0.94 0.60-1.30 MG/DL Estimat Glomerular Filtration Rate > 60 BUN/Creatinine Ratio 24 Glucose Level 147 H 70-105 MG/DL Lactic Acid Level 2.06 *H 1.42 0.50-2.00 MMOL/L Calcium Level 10.5 H 8.5-10.1 MG/DL Corrected Calcium 10.1 8.5-10.1 MG/DL Total Bilirubin 0.4 0.1-1.0 MG/DL Aspartate Amino Transf (AST/SGOT) 14 5-34 U/L Alanine Aminotransferase (ALT/SGPT) < 6 0-55 U/L Alkaline Phosphatase 52 40-136 U/L Total Protein 7.6 6.4-8.2 GM/DL Albumin 4.5 3.2-4.5 GM/DL Micro Results Microbiology 09/18/19 Influenza Types A,B Antigen (KARLENE) - Final, Complete My Orders Orders - LELE DEGROOT MD Cbc With Automated Diff (09/18/19 10:53) Comprehensive Metabolic Panel (09/18/19 10:53) Blood Culture (09/18/19 10:53) Sputum Culture (09/18/19 10:53) Urinalysis (09/18/19 10:53) Urine Culture (09/18/19 10:53) Protime With Inr (09/18/19 10:53) Partial Thromboplastin Time (09/18/19 10:53) Chest 1 View, Ap/Pa Only (09/18/19 10:53) Ed Iv/Invasive Line Start (09/18/19 10:53) Vital Signs Adult Sepsis Patie Q15M (09/18/19 10:53) O2 (09/18/19 10:53) Remove Rings In Anticipation O (09/18/19 10:53) Lactic Acid Analyzer (09/18/19 10:53) Influenza A And B Antigens (09/18/19 10:53) Ns Iv 500 Ml (Sodium Chloride 0.9%) (09/18/19 10:53) Manual Differential (09/18/19 10:55) Albuterol/Ipra Inhalation Soln (Duoneb I (09/18/19 12:30) Svn Small Volume Nebulizer (09/18/19 12:16) Albuterol Pre-Mix Nebs (Rt) (Proventil (09/18/19 13:22) Svn Small Volume Nebulizer (09/18/19 13:22) Prednisone Tablet (Deltasone Tablet) (09/18/19 13:30) Ed Iv/Invasive Line Start (09/18/19 13:27) Ns Iv 500 Ml (Sodium Chloride 0.9%) (09/18/19 13:27) Medications Given in ED Current Medications Medications Dose Ordered Sig/Regino Route Start Time Stop Time Status Last Admin Dose Admin Albuterol/ Ipratropium 3 ml ONCE ONCE INH 09/18/19 12:30 09/18/19 12:31 DC 09/18/19 12:49 3 ML Prednisone 60 mg ONCE ONCE PO 09/18/19 13:30 09/18/19 13:31 DC 09/18/19 13:58 60 MG Sodium Chloride 500 ml @ 0 mls/hr Q0M ONCE IV 09/18/19 10:53 09/18/19 10:55 DC 09/18/19 11:04 0 MLS/HR Sodium Chloride 500 ml @ 0 mls/hr Q0M ONCE IV 09/18/19 13:27 09/18/19 13:28 DC 09/18/19 13:57 500 MLS/HR Vital Signs/I&O 09/18/19 09/18/19 09/18/19 09/18/19 10:43 10:43 12:48 13:31 Temp 36.9 Pulse 87 Resp 24 B/P (MAP) 138/103 (115) Pulse Ox 96 96 100 100 O2 Delivery Nasal Cannula Nasal Cannula Nasal Cannula Nasal Cannula O2 Flow Rate 6.00 6.00 6.00 6.00 09/18/19 09/18/19 13:36 13:41 Pulse Ox 100 100 O2 Delivery Nasal Cannula Nasal Cannula O2 Flow Rate 6.00 6.00 Capillary Refill : Progress Note : Progress Note Seen and evaluated. Sepsis protocol initiated. Records review show chest x-ray done on 09/15/19 without acute abnormality. Does have chronic significant emphysema. Monitor patient. Somewhat improved after initial DuoNeb. 1437: Patient received 3 more albuterol treatments and prednisone 60 mg by mouth. We will initiate outpatient steroid Dosepak with prednisone and then he will resume his previous. No indication of pneumonia currently. Patient does not want to be admitted to the hospital but would otherwise meet requirements for COPD exacerbation with outpatient failure. This was discussed with the patient but he does not want to stay. Discharged home with return precautions. Patient ve rbalize understanding instructions and agreement with plan. Departure Impression Primary Impression: COPD (chronic obstructive pulmonary disease) Qualified Codes: J44.1 - Chronic obstructive pulmonary disease with (acute) exacerbation Disposition: ADMITTED INPATIENT Condition: Stable Departure-Patient Inst. Decision time for Depature: 14:33 Referrals: YVETTE JACKMAN DO (PCP/Family) Primary Care Physician Patient Instructions: Chronic Bronchitis (DC) Add. Discharge Instructions: All discharge instructions reviewed with patient and/or family. Voiced understanding. Take steroid Dosepak as prescribed until complete over the next 12 days. You may then resume your or previous steroid dosing. Follow-up with Dr. Chacon next week for recheck and further evaluation. Follow-up with your in a few days for recheck and further evaluation. Return for worse pain, fever, vomiting, weakness, breathing problems or other concerns as needed. Scripts Prednisone (Prednisone) 10 Mg Tab.ds.pk 10 MG PO DAILY, #42 EA Take 6 tabs(60mg)daily,decrease by 1 tab(10mg)every other day. Prov: LELE DEGROOT MD 09/18/19 LELE DEGROOT MD Sep 18, 2019 10:59
[2019-09-18 11:13] LABS: BASOPHILS % (AUTO) 0 % (0-10); EOSINOPHILS % (AUTO) 0 % (0-10); HEMATOCRIT 40 % (40-54); LYMPHOCYTES # (AUTO) 0.3 X 10^3 (1.0-4.0); LYMPHOCYTES % (AUTO) 4 % (12-44); MEAN CORPUSCULAR HEMOGLOBIN 30 PG (25-34); MEAN CORPUSCULAR HGB CONC 33 G/DL (32-36); MEAN CORPUSCULAR VOLUME 91 FL (80-99); MEAN PLATELET VOLUME 9.3 FL (7.4-10.4); MONOCYTES # (AUTO) 0.8 X 10^3 (0.0-1.0); MONOCYTES % (AUTO) 11 % (0-12); NEUTROPHILS # (AUTO) 6.2 X 10^3 (1.8-7.8); NEUTROPHILS % (AUTO) 85 % (42-75); PLATELET COUNT 261 10^3/uL (130-400); RED CELL DISTRIBUTION WIDTH 15.5 % (10.0-14.5); WHITE BLOOD COUNT 7.3 10^3/uL (4.3-11.0)
[2019-09-18] MEDS ORDERED: CATHETER FLUSH 10 ML SYR IV PRN (11:15)
[2019-09-18] MEDS ORDERED: NS 100 ML (IVPB) BAG IV ONE (11:15)
[2019-09-18] MEDS ORDERED: HOLD METFORMIN - RECEIVED CONTRAST 20 ML VIAL IV SCH (11:15)
[2019-09-18] MEDS ORDERED: IOHEXOL 350 MG/ML 100 ML (OMNIPAQUE 350) VIAL IV ONE (11:15)
--- NOTE | 2019-09-18 11:24 | Diagnostic Imaging Report ---
INDICATION: Shortness of breath. Portable chest at 11:14 a.m. FINDINGS: Heart size and pulmonary vascularity are normal. Lungs are clear. There are no effusions or pneumothoraces. IMPRESSION: Negative chest. Dictated by: Dictated on workstation # [id number]
[2019-09-18 11:35] LABS: PROTHROMBIN TIME PATIENT 13.4 SEC (12.2-14.7)
[2019-09-18 11:37] LABS: ALANINE AMINOTRANSFERASE < 6 U/L (0-55); ALBUMIN 4.5 GM/DL (3.2-4.5); ALKALINE PHOSPHATASE 52 U/L (40-136); BILIRUBIN,TOTAL 0.4 MG/DL (0.1-1.0); BUN/CREATININE RATIO 24; CALCIUM 10.5 MG/DL (8.5-10.1); CARBON DIOXIDE 27 MMOL/L (21-32); CHLORIDE 97 MMOL/L (98-107); CREATININE SERUM 0.94 MG/DL (0.60-1.30); GFR ESTIMATED > 60; GLUCOSE 147 MG/DL (70-105); POTASSIUM 4.4 MMOL/L (3.6-5.0); SODIUM 138 MMOL/L (135-145); TOTAL PROTEIN 7.6 GM/DL (6.4-8.2)
[2019-09-18 12:22] LABS: BAND NEUTROPHILS 6 %; EOSINOPHILS % (MANUAL) 4 %; LYMPHOCYTES % (MANUAL) 5 %; MONOCYTES % (MANUAL) 10 %; NEUTROPHILS % (MANUAL) 75 %; RBC MORPH NORMAL; TOXIC GRANULATION/VACUOLAZATIO 1+
[2019-09-18] MEDS ORDERED: RT-ALBUTEROL/IPRATROPIUM 3 ML (DUONEB) VIAL INH ONE (12:30)
[2019-09-18] MEDS ORDERED: RT-ALBUTEROL SULF 2.5 MG/3 ML PRE-MIX VIAL INH STA (13:22)
[2019-09-18] MEDS ORDERED: predniSONE 20 MG TAB PO ONE (13:30)
[2019-09-18] MEDS ORDERED: PRED10TA22 PO (14:37)
[2019-09-18 14:49] VITALS: BP 130/76
== END 2019-09-18 14:49 | disposition other institution (70) ==
LOC: EDUNIT# 10:42 → ER 10:44
DX: J44.9 Chronic obstructive pulmonary disease, unspecified (principal); I10 Essential (primary) hypertension; E11.9 Type 2 diabetes mellitus without complications; E78.00 Pure hypercholesterolemia, unspecified; I25.2 Old myocardial infarction; I25.10 Atherosclerotic heart disease of native coronary artery without angina pectoris; F41.9 Anxiety disorder, unspecified; K21.9 Gastro-esophageal reflux disease without esophagitis; Z85.828 Personal history of other malignant neoplasm of skin; Z88.5 Allergy status to narcotic agent; Z79.82 Long term (current) use of aspirin; Z79.02 Long term (current) use of antithrombotics/antiplatelets; Z79.4 Long term (current) use of insulin; Z79.52 Long term (current) use of systemic steroids; Z87.891 Personal history of nicotine dependence; Z77.22 Contact with and (suspected) exposure to environmental tobacco smoke (acute) (chronic); Z95.5 Presence of coronary angioplasty implant and graft; Z99.81 Dependence on supplemental oxygen; Z80.3 Family history of malignant neoplasm of breast; Z82.49 Family history of ischemic heart disease and other diseases of the circulatory system
CPT/HCPCS: 36415; 71045; 80053; 83605; 85007; 85027; 85610; 85730; 87040; 87804; 94640; 96360

== ENCOUNTER 2019-09-24 16:25 | Emergency (ER) | payer MEDICARE ==
[~2019-09-24] VITALS: Ht 182 cm; Wt 84.0 kg
[~2019-09-24 16:25] MED LIST changes: -TRAM50TA2 PO; +TRM50T PO
[2019-09-24] MEDS ORDERED: RT-ALBUTEROL/IPRATROPIUM 3 ML (DUONEB) VIAL ONE (16:32)
[2019-09-24] MEDS ORDERED: NS IV 500 ML 500 ML IV ONE (16:39)
[2019-09-24] MEDS ORDERED: NS IV 1000 ML 1,000 ML IV SCH ×2 (16:44)
[2019-09-24] MEDS ORDERED: methylPREDNISolone 125 MG (Solu-MEDROL) VIAL IV STA (16:44)
[2019-09-24] MEDS ORDERED: RT-ALBUTEROL SULF 2.5 MG/3 ML PRE-MIX VIAL INH STA (16:44)
--- NOTE | 2019-09-24 16:44 | ED Respiratory ---
General Chief Complaint: Respiratory Problems Stated Complaint: SOA Source: patient, family (Son) Exam Limitations: no limitations History of Present Illness Date Seen by Provider: Sep 24, 2019 Time Seen by Provider: 16:29 Initial Comments Patient presents ER by private conveyance with chief complaint of shortness of breath. He was out in his shop and ran out of oxygen for about 45 minutes. He does use breathing treatments daily for his COPD but for the past few days been using them more frequently. He's had no fever or chills but does endorse increased worker breathing. He has a productive cough but no more than usual. He quit smoking years ago. He has a history of cardiac stents by Dr. Lainez and follows locally with Dr. Barakat. He denies any chest pain nausea diarrhea or constipation. Echocardiogram from 2017 showed an ejection fraction of 55-60% with mild mitral regurgitation and mild to moderate tricuspid regurgitation. Grade 1 diastolic dysfunction. 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 Allergies and Home Medications Allergies Coded Allergies: hydrocodone (Verified Allergy, Mild, NAUSEA, 07/25/19) oxycodone (Verified Allergy, Mild, NAUSEA, 07/25/19) Home Medications Acetaminophen 500 Mg Tablet, 1,000 MG PO Q6H PRN for PAIN-MILD, (Reported) Albuterol Sulfate 1 Puff Puff, 2 PUFF INH Q4H PRN for SHORTNESS OF BREATH, (Reported) 1 PUFF = 90 MCG Amlodipine Besylate 5 Mg Tablet, 5 MG PO DAILY, (Reported) Aspirin 81 Mg Tablet.dr, 81 MG PO DAILY, (Reported) Azithromycin 250 Mg Tablet, 250 MG PO UD TAKE 2 TABLETS ON DAY ONE THEN TAKE 1 TABLET DAILY FOR FOUR MORE DAYS Prescribed by: RULA GARCAI on 08/14/19 1245 Budesonide/Formoterol Fumarate 10.2 Gm Hfa.aer.ad, 2 PUFF IH BID PRN for SHORTNESS OF BREATH, (Reported) Carbidopa/Levodopa 1 Each Tablet.er, 1 TAB PO TID, (Reported) Clopidogrel Bisulfate 75 Mg Tablet, 75 MG PO DAILY, (Reported) Insulin Aspart 100 Unit/1 Ml Susp, 10 UNIT SQ AC, (Reported) Insulin Detemir 100 Unit/1 Ml Insuln.pen, 20 UNITS SC HS, (Reported) Ipratropium/Albuterol Sulfate 3 Ml Ampul.neb, 3 ML NEB Q4H, (Reported) Isosorbide Mononitrate 30 Mg Tab.er.24h, 30 MG PO DAILY, (Reported) Losartan Potassium 100 Mg Tablet, 100 MG PO DAILY, (Reported) Magnesium Oxide 400 Mg Tablet, 400 MG PO DAILY, (Reported) Menthol 113.6 Gm Gel..gram., 1 GM TP DAILY PRN for MUSCLE CRAMPS, (Reported) Nystatin 100,000 Unit/1 Ml Oral.susp, 5 ML PO QID, (Reported) Omeprazole 20 Mg Tablet.dr, 20 MG PO DAILY Prescribed by: STEVAN PATTON on 07/29/19 1446 Pantoprazole Sodium 40 Mg Tablet.dr, 40 MG PO DAILY, (Reported) Potassium Gluconate 99 Mg Tablet, 99 MG PO DAILY, (Reported) Prednisone 20 Mg Tab, 20 MG PO DAILY 1 tab twice a day for 4 days then 1 tab daily for 4 days Prescribed by: YVTETE BARAKAT on 03/26/19 1320 Prednisone 20 Mg Tab, 40 MG PO BID Prescribed by: JOSE KATZ on 07/17/19 0721 Prednisone 20 Mg Tab, 40 MG PO DAILY Prescribed by: RULA GARCIA on 08/14/19 1245 Prednisone 10 Mg Tab.ds.pk, 10 MG PO DAILY Take 6 tabs(60mg)daily,decrease by 1 tab(10mg)every other day. Prescribed by: LELE DEGROOT on 09/18/19 1437 Ropinirole HCl 4 Mg Tablet, 12 MG PO HS, (Reported) TAKES 3 (4MG) TABLETS Tramadol HCl 50 Mg Tablet, 50 MG PO HS PRN for PAIN-MODERATE, (Reported) Patient Home Medication List Home Medication List Reviewed: Yes Review of Systems Review of Systems Constitutional: No chills, No fever, No malaise EENTM: No ear discharge, No ear pain Respiratory: cough, phlegm, short of breath, wheezing Cardiovascular: No chest pain, No edema Gastrointestinal: No abdominal pain, No constipation Genitourinary: No discharge, No dysuria Musculoskeletal: No back pain, No gout All Other Systems Reviewed Negative Unless Noted: Yes Past Iipmzxz-Qjhexo-Bfubsq Hx Patient Social History Alcohol Use: Occasionally Uses Alcohol Beverage of Choice: Beer Recreational Drug Use: No Smoking Status: Former Smoker Type Used: Cigars Former Smoker, Quit: May 25, 1996 2nd Hand Smoke Exposure: Yes Recent Hopitalizations: No Immunizations Up To Date Tetanus Booster (TDap): Unknown PED Vaccines UTD: Yes Date of Pneumonia Vaccine: Sep 25, 2018 Date of Influenza Vaccine: Sep 25, 2018 Seasonal Allergies Seasonal Allergies: No Past Medical History Surgeries: Yes (CATARACTS, KNEE SCOPE, SKIN CANCERS REMOVED) Coronary Stent, Orthopedic Respiratory: Yes (O2 3L NC) Sleep Apnea, COPD Currently Using CPAP: Yes Currently Using BIPAP: No Cardiac: Yes (stents x5) Coronary Artery Disease, Heart Attack, High Cholesterol, Hypertension Neurological: No Reproductive Disorders: No Sexually Transmitted Disease: No HIV/AIDS: No Genitourinary: No Gastrointestinal: Yes Gastroesophageal Reflux Musculoskeletal: Yes Arthritis, Fractures Endocrine: Yes Diabetes, Insulin dep HEENT: Yes Cataract Loss of Vision: Bilateral Hearing Impairment: Hard of Hearing Cancer: Yes Skin Did You Recieve Any Treatments: Yes What Type of Treatment Did You: Surgical Intervention Psychosocial: Yes Anxiety Integumentary: Yes (ACTINIC KERATOSIS, SKIN CANCER) Eczema Blood Disorders: No Adverse Reaction/Blood Tranf: No (HAS HAD BLOOD WITH NO REACTION) Family Medical History Cancer 09 BROTHER Cancer of colon 09 BROTHER Cataract 03 MOTHER Chest pain 03 MOTHER Congenital heart disease 03 FATHER Congestive heart failure 03 FATHER Family history: Cardiovascular disease 03 FATHER 03 MOTHER Family history: Diabetes mellitus 03 FATHER Family history: Gastrointestinal disease 03 MOTHER Family history: Hypertension 03 MOTHER Hearing loss 03 FATHER Heart disease 03 FATHER History of - respiratory disease 03 FATHER Kidney disease 03 FATHER Myocardial infarction 03 FATHER Stroke 03 FATHER No Family History of: Abdominal aortic aneurysm Bulloch's disease Alcoholism Aphasia Cystic fibrosis Dementia Dysphagia Family history: Allergy Family history: Alzheimer's disease Family history: Arthritis Family history: Asthma Family history: Breast disease Family history: Coronary thrombosis Family history: Glaucoma Family history: Osteoporosis Family history: Thyroid disorder Headache Hereditary disease History of - anemia History of - disorder History of drug abuse Human immunodeficiency virus (HIV) seropositivity Hypercholesterolemia Infertile Malignant neoplasm of lung Parkinson's disease Prostate cancer Psychotic disorder Seizure disorder Tuberculosis Visual impairment Physical Exam Vital Signs - First Documented 09/24/19 16:30 Temp 37.6 Pulse 116 Resp 36 B/P (MAP) 152/70 (97) Pulse Ox 98 O2 Delivery Nasal Cannula O2 Flow Rate 6.00 Capillary Refill : Height: 6'0.00" Weight: 204lbs. 9.0oz. 92.565651kv; 25.00 BMI Method:Stated General Appearance: WD/WN, moderate distress Eyes: Bilateral Eye Normal Inspection, Bilateral Eye PERRL, Bilateral Eye EOMI HEENT: PERRL/EOMI, normal ENT inspection, TMs normal, pharynx normal (Oropharynx is dry) Neck: full range of motion, supple, normal inspection Respiratory: chest non-tender, respiratory distress (Mild to moderate), decreased breath sounds, accessory muscle use (Mild to moderate), wheezing Cardiovascular: normal peripheral pulses, regular rate, rhythm, no edema Gastrointestinal: normal bowel sounds, non tender, soft Extremities: normal inspection, no pedal edema, normal capillary refill Neurologic/Psychiatric: alert, normal mood/affect, oriented x 3 Skin: normal color, warm/dry Focused Exam Lactate Level 09/24/19 16:50: Lactic Acid Level 3.44*H Lactic Acid Level Laboratory Tests Test 09/24/19 16:50 Lactic Acid Level 3.44 MMOL/L (0.50-2.00) *H Progress/Results/Core Measures Suspected Sepsis SIRS Temperature: Pulse: Respiratory Rate: Laboratory Tests 09/24/19 16:40: White Blood Count 14.1H Blood Pressure / Mean: 09/24/19 16:50: Lactic Acid Level 3.44*H Laboratory Tests 09/24/19 16:40: Creatinine 0.97, INR Comment 1.0, Platelet Count 229, Total Bilirubin 0.5 Results/Orders Lab Results Laboratory Tests Test 09/24/19 16:40 09/24/19 16:50 09/24/19 17:08 Range/Units White Blood Count 14.1 H 4.3-11.0 10^3/uL Red Blood Count 4.27 L 4.35-5.85 10^6/uL Hemoglobin 12.9 L 13.3-17.7 G/DL Hematocrit 39 L 40-54 % Mean Corpuscular Volume 91 80-99 FL Mean Corpuscular Hemoglobin 30 25-34 PG Mean Corpuscular Hemoglobin Concent 33 32-36 G/DL Red Cell Distribution Width 15.3 H 10.0-14.5 % Platelet Count 229 130-400 10^3/uL Mean Platelet Volume 9.3 7.4-10.4 FL Neutrophils (%) (Auto) 94 H 42-75 % Lymphocytes (%) (Auto) 1 L 12-44 % Monocytes (%) (Auto) 5 0-12 % Eosinophils (%) (Auto) 0 0-10 % Basophils (%) (Auto) 0 0-10 % Neutrophils # (Auto) 13.2 H 1.8-7.8 X 10^3 Lymphocytes # (Auto) 0.2 L 1.0-4.0 X 10^3 Monocytes # (Auto) 0.7 0.0-1.0 X 10^3 Eosinophils # (Auto) 0.0 0.0-0.3 10^3/uL Basophils # (Auto) 0.0 0.0-0.1 10^3/uL Neutrophils % (Manual) 91 % Monocytes % (Manual) 3 % Metamyelocytes % 1 % Band Neutrophils 4 % Poikilocytosis SLIGHT Anisocytosis SLIGHT Spherocytes SLIGHT Prothrombin Time 13.1 12.2-14.7 SEC INR Comment 1.0 0.8-1.4 Activated Partial Thromboplast Time 35 24-35 SEC Sodium Level 134 L 135-145 MMOL/L Potassium Level 4.7 3.6-5.0 MMOL/L Chloride Level 96 L 98-107 MMOL/L Carbon Dioxide Level 23 21-32 MMOL/L Anion Gap 15 H 5-14 MMOL/L Blood Urea Nitrogen 20 H 7-18 MG/DL Creatinine 0.97 0.60-1.30 MG/DL Estimat Glomerular Filtration Rate > 60 BUN/Creatinine Ratio 21 Glucose Level 315 H 70-105 MG/DL Calcium Level 9.1 8.5-10.1 MG/DL Corrected Calcium 9.1 8.5-10.1 MG/DL Total Bilirubin 0.5 0.1-1.0 MG/DL Aspartate Amino Transf (AST/SGOT) 10 5-34 U/L Alanine Aminotransferase (ALT/SGPT) 10 0-55 U/L Alkaline Phosphatase 59 40-136 U/L C-Reactive Protein High Sensitivity 4.15 H 0.00-0.50 MG/DL Total Protein 6.8 6.4-8.2 GM/DL Albumin 4.0 3.2-4.5 GM/DL Lactic Acid Level 3.44 *H 0.50-2.00 MMOL/L Blood Gas Puncture Site UNK Blood Gas Patient Temperature 37.6 Arterial Blood pH 7.45 H 7.37-7.43 Arterial Blood Partial Pressure CO2 37 35-45 MMHG Arterial Blood Partial Pressure O2 85 79-93 MMHG Arterial Blood HCO3 25 23-27 MMOL/L Arterial Blood Total CO2 26.5 21.0-31.0 MMOL/L Arterial Blood Oxygen Saturation 97 94-100 % Arterial Blood Base Excess 1.8 -2.5-2.5 MMOL/L Ahsan Test UNK Blood Gas Ventilator Setting NO Blood Gas Inspired Oxygen 6 L Micro Results Microbiology 09/24/19 Influenza Types A,B Antigen (KARLENE) - Final, Complete My Orders Orders - JOSE KATZ Albuterol/Ipra Inhalation Soln (Duoneb I (09/24/19 16:32) Ed Iv/Invasive Line Start (09/24/19 16:39) Ns Iv 500 Ml (Sodium Chloride 0.9%) (09/24/19 16:39) Albuterol/Ipra Inhalation Soln (Duoneb I (09/24/19 16:45) Svn Small Volume Nebulizer (09/24/19 16:39) Cbc With Automated Diff (09/24/19 16:39) Comprehensive Metabolic Panel (09/24/19 16:39) Hs C Reactive Protein (09/24/19 16:39) Chest 1 View, Ap/Pa Only (09/24/19 16:39) Blood Culture (09/24/19 16:44) Sputum Culture (09/24/19 16:44) Protime With Inr (09/24/19 16:44) Partial Thromboplastin Time (09/24/19 16:44) Ed Iv/Invasive Line Start (09/24/19 16:44) Ed Iv/Invasive Line Start (09/24/19 16:44) Vital Signs Adult Sepsis Patie Q15M (09/24/19 16:44) O2 (09/24/19 16:44) Remove Rings In Anticipation O (09/24/19 16:44) Lactic Acid Analyzer (09/24/19 16:44) Ns Iv 1000 Ml (Sodium Chloride 0.9%) (09/24/19 16:44) Cefepime Injection (Maxipime Injection) (09/24/19 16:45) Albuterol Pre-Mix Nebs (Rt) (Proventil (09/24/19 16:44) Albuterol/Ipra Inhalation Soln (Duoneb I (09/24/19 16:45) Methylprednisolone Sod Succ (Solu-Medrol (09/24/19 16:44) Influenza A And B Antigens (09/24/19 16:44) BNP (09/24/19 16:44) Ed Iv/Invasive Line Start (09/24/19 16:44) Ns Iv 1000 Ml (Sodium Chloride 0.9%) (09/24/19 16:44) Manual Differential (09/24/19 16:40) Arterial Blood Gas (09/24/19 17:11) Medications Given in ED Current Medications Medications Dose Ordered Sig/Regino Route Start Time Stop Time Status Last Admin Dose Admin Albuterol/ Ipratropium 3 ml STK-MED ONCE .ROUTE 09/24/19 16:32 09/24/19 16:36 DC 09/24/19 16:39 3 ML Cefepime HCl 1000 mg/Sterile Water 10 ml @ 200 mls/hr ONCE ONCE IV 09/24/19 16:45 09/24/19 16:48 DC 09/24/19 17:34 200 MLS/HR Vital Signs/I&O 09/24/19 09/24/19 09/24/19 16:30 16:30 17:20 Temp 37.6 Pulse 116 Resp 36 B/P (MAP) 152/70 (97) Pulse Ox 98 95 95 O2 Delivery Nasal Cannula Nasal Cannula O2 Flow Rate 6.00 6.00 Capillary Refill : Progress Note #1: Time: 16:50 Progress Note COPD exacerbation versus pneumonia. The first breathing treatment medicine we could barely hear some air movement. We'll give him an hour-long in [place] 125 mg of Solu-Medrol and cover him for sepsis with cefepime. 2 L would be we millimeters per kilogram. Progress Note #2: Time: 17:58 Progress Note His breath sounds are improved. He states he is feeling much better and would like to go home. Plan to provide him with a steroid taper. He just got off a steroid taper from 07 September, 2 weeks ago. We will try put him on another short taper and have him follow-up with his primary care. He's having some pain in his right knee and he typically takes hydrocodone so we'll give him 10 mg hydrocodone before he leaves. He significant improvement back on his baseline oxygen usage and satting just fine. His ABG demonstrates that he was having some hypoxia but is okay at 6 L by nasal cannula. It would seem that what he experienced was just a transient hypoxic episode when his oxygen ran out. Diagnostic Imaging Diagonstic Imaging: Xray Plain Films/CT/US/NM/MRI: chest (1v) Comments [facility] [place], [place] NAME: DEVIN MORALES [facility] REC#: [id number] PT STATUS: REG ER : 1940 PHYSICIAN: JOSE KATZ MD ADMIT DATE: 09/24/19/ER Draft Date of Exam:09/24/19 CHEST 1 VIEW, AP/PA ONLY EXAMINATION: Chest radiograph, portable AP view. DATE: 09/24/2019 4:56 PM hours. INDICATION: 79-year-old male, shortness of breath. COMPARISON: September 18, 2019. FINDINGS: Stable overall appearance of the cardiomediastinal silhouette. There is no identified pneumothorax. There is no large pleural effusion. There is no identified focal airspace consolidation. There is chronic appearing fracture deformity left clavicle. IMPRESSION: No identified acute cardiopulmonary abnormality. Dictated on workstation # [id number] Dict: 09/24/19 1657 Trans: 09/24/19 1707 PJE [id number] Interpreted by: FLY JONES MD Electronically signed by: Reviewed: Reviewed by Me Departure Impression Primary Impression: COPD (chronic obstructive pulmonary disease) Qualified Codes: J44.1 - Chronic obstructive pulmonary disease with (acute) exacerbation Additional Impression: Hypoxia Disposition: HOME, SELF-CARE Condition: Improved Departure-Patient Inst. Decision time for Depature: 17:59 Referrals: YVETTE BARAKAT DO (PCP/Family) Primary Care Physician Patient Instructions: Exacerbation of COPD (DC) Add. Discharge Instructions: Continue to use your breathing treatments as prescribed. Prednisone 3 tablets daily for 3 days followed by Prednisone 2 tablets daily for 3 days followed by Prednisone one tablet daily for 3 days. Follow-up with primary care as necessary if you're not improving. Return to the ER if you have acute shortness of breath. All discharge instructions reviewed with patient and/or family. Voiced understanding. Scripts Prednisone (Prednisone) 20 Mg Tab 60 MG PO DAILY for 9 Days, #18 TAB 0 Refills 3 tabs daily for 3 days 2 tabs daily for 3 days 1 tab daily for 3 days Prov: JOSE KATZ 09/24/19 JOSE KATZ Sep 24, 2019 16:44
[2019-09-24] MEDS ORDERED: CEFEPIME INJECTION 1,000 MG in WATER (STERILE) FOR INJECTION 10 ML IV ONE (16:45)
[2019-09-24] MEDS ORDERED: RT-ALBUTEROL/IPRATROPIUM 3 ML (DUONEB) VIAL INH ONE ×2 (16:45)
[2019-09-24 16:50] LABS: BASOPHILS % (AUTO) 0 % (0-10); EOSINOPHILS % (AUTO) 0 % (0-10); HEMATOCRIT 39 % (40-54); HEMOGLOBIN 12.9 G/DL (13.3-17.7); LYMPHOCYTES # (AUTO) 0.2 X 10^3 (1.0-4.0); LYMPHOCYTES % (AUTO) 1 % (12-44); MEAN CORPUSCULAR HEMOGLOBIN 30 PG (25-34); MEAN CORPUSCULAR HGB CONC 33 G/DL (32-36); MEAN CORPUSCULAR VOLUME 91 FL (80-99); MEAN PLATELET VOLUME 9.3 FL (7.4-10.4); MONOCYTES # (AUTO) 0.7 X 10^3 (0.0-1.0); MONOCYTES % (AUTO) 5 % (0-12); NEUTROPHILS # (AUTO) 13.2 X 10^3 (1.8-7.8); NEUTROPHILS % (AUTO) 94 % (42-75); PLATELET COUNT 229 10^3/uL (130-400); RED CELL DISTRIBUTION WIDTH 15.3 % (10.0-14.5); WHITE BLOOD COUNT 14.1 10^3/uL (4.3-11.0)
--- NOTE | 2019-09-24 17:08 | Diagnostic Imaging Report ---
EXAMINATION: Chest radiograph, portable AP view. DATE: 09/24/2019 4:56 PM hours. INDICATION: 79-year-old male, shortness of breath. COMPARISON: September 18, 2019. FINDINGS: Stable overall appearance of the cardiomediastinal silhouette. There is no identified pneumothorax. There is no large pleural effusion. There is no identified focal airspace consolidation. There is chronic appearing fracture deformity left clavicle. IMPRESSION: No identified acute cardiopulmonary abnormality. Dictated by: Dictated on workstation # [id number]
[2019-09-24 17:15] LABS: ALANINE AMINOTRANSFERASE 10 U/L (0-55); ALKALINE PHOSPHATASE 59 U/L (40-136); ANISOCYTOSIS SLIGHT; BAND NEUTROPHILS 4 %; BILIRUBIN,TOTAL 0.5 MG/DL (0.1-1.0); BUN/CREATININE RATIO 21; CALCIUM 9.1 MG/DL (8.5-10.1); CARBON DIOXIDE 23 MMOL/L (21-32); CHLORIDE 96 MMOL/L (98-107); CREATININE SERUM 0.97 MG/DL (0.60-1.30); GFR ESTIMATED > 60; GLUCOSE 315 MG/DL (70-105); METAMYELOCYTES % 1 %; MONOCYTES % (MANUAL) 3 %; NEUTROPHILS % (MANUAL) 91 %; POIKILOCYTOSIS SLIGHT; POTASSIUM 4.7 MMOL/L (3.6-5.0); SODIUM 134 MMOL/L (135-145); SPHEROCYTES SLIGHT; TOTAL PROTEIN 6.8 GM/DL (6.4-8.2)
[2019-09-24 17:16] LABS: ABG BASE EXCESS 1.8 MMOL/L (-2.5-2.5); ABG OXYGEN SATURATION 97 % (94-100); ABG PCO2 37 MMHG (35-45); ABG PH 7.45 (7.37-7.43); ABG PO2 85 MMHG (79-93); ABG TCO2 26.5 MMOL/L (21.0-31.0)
[2019-09-24 17:18] LABS: INSPIRED O2 6 L; PATIENT TEMP 37.6; VENTILATOR NO
[2019-09-24 17:37] LABS: PROTHROMBIN TIME PATIENT 13.1 SEC (12.2-14.7)
[2019-09-24] MEDS ORDERED: PRD20T PO (18:02)
[2019-09-24] MEDS ORDERED: HYDROcodone/APAP 5 MG/325 MG (LORTAB) TAB PO ONE (18:15)
[2019-09-24 18:27] VITALS: BP 154/62
== END 2019-09-24 18:32 | disposition home or self-care (01) ==
LOC: EDUNIT# 16:25 → ER 16:26
DX: J44.9 Chronic obstructive pulmonary disease, unspecified (principal); R09.02 Hypoxemia; I10 Essential (primary) hypertension; E11.9 Type 2 diabetes mellitus without complications; F41.9 Anxiety disorder, unspecified; E78.00 Pure hypercholesterolemia, unspecified; I25.2 Old myocardial infarction; I25.10 Atherosclerotic heart disease of native coronary artery without angina pectoris; K21.9 Gastro-esophageal reflux disease without esophagitis; G47.30 Sleep apnea, unspecified; Z85.828 Personal history of other malignant neoplasm of skin; Z99.81 Dependence on supplemental oxygen; Z95.9 Presence of cardiac and vascular implant and graft, unspecified; Z88.5 Allergy status to narcotic agent; Z79.82 Long term (current) use of aspirin; Z79.02 Long term (current) use of antithrombotics/antiplatelets; Z79.4 Long term (current) use of insulin; Z87.891 Personal history of nicotine dependence; Z77.22 Contact with and (suspected) exposure to environmental tobacco smoke (acute) (chronic); Z80.0 Family history of malignant neoplasm of digestive organs; Z82.49 Family history of ischemic heart disease and other diseases of the circulatory system
CPT/HCPCS: 36415; 71045; 80053; 82805; 83605; 83880; 85007; 85027; 85610; 85730; 86141; 87040; 87804; 94640; 96361; 96365; 96375

== ENCOUNTER 2019-10-17 11:04 | Emergency (ER) | payer MEDICARE ==
[~2019-10-17] VITALS: Ht 175 cm; Wt 84.0 kg
[~2019-10-17 11:04] MED LIST changes: -ACET-2469 PO; +ACET-2715 PO; -GLIM2TAB PO; +GLIM2TAB2 PO; -GLIM4TAB PO; +GLIM4TAB3 PO; -IBUP-2055 PO; +IBUP-2473 PO; +METF500T19 PO; -METF500T8 PO; +OMEP-280 PO; -OMEP20CA13 PO
[2019-10-17] MEDS ORDERED: morphine INJ 10 MG/ML 1ML (SYR OR VIAL) IVP STA ×2 (11:10→12:48)
[2019-10-17] MEDS ORDERED: RT-ALBUTEROL/IPRATROPIUM 3 ML (DUONEB) VIAL INH ONE (11:15)
[2019-10-17] MEDS ORDERED: methylPREDNISolone 125 MG (Solu-MEDROL) VIAL IVP ONE (11:15)
[2019-10-17] MEDS ORDERED: RT-ALBUTEROL SULF 2.5 MG/3 ML PRE-MIX VIAL INH ONE (11:15)
--- NOTE | 2019-10-17 11:15 | ED Respiratory ---
General Chief Complaint: Respiratory Problems Stated Complaint: SOA Source: patient Exam Limitations: no limitations History of Present Illness Date Seen by Provider: Oct 17, 2019 Time Seen by Provider: 11:05 Initial Comments To ER with a one-week history of increasing shortness of breath and dyspnea on exertion. Long-standing history of COPD with frequent emergency room visits. He wears oxygen 3 L round the clock. No fevers or chills or change in the characte ristics of his cough. Timing/Duration: constant, getting worse Severity: moderate Associated Symptoms: cough, shortness of breath Allergies and Home Medications Allergies Coded Allergies: hydrocodone (Verified Allergy, Mild, NAUSEA, 07/25/19) oxycodone (Verified Allergy, Mild, NAUSEA, 07/25/19) Home Medications Acetaminophen 500 Mg Tablet, 1,000 MG PO Q6H PRN for PAIN-MILD, (Reported) Albuterol Sulfate 1 Puff Puff, 2 PUFF INH Q4H PRN for SHORTNESS OF BREATH, (Reported) 1 PUFF = 90 MCG Amlodipine Besylate 5 Mg Tablet, 5 MG PO DAILY, (Reported) Aspirin 81 Mg Tablet.dr, 81 MG PO DAILY, (Reported) Azithromycin 250 Mg Tablet, 250 MG PO UD TAKE 2 TABLETS ON DAY ONE THEN TAKE 1 TABLET DAILY FOR FOUR MORE DAYS Prescribed by: RULA GARCIA on 08/14/19 1245 Budesonide/Formoterol Fumarate 10.2 Gm Hfa.aer.ad, 2 PUFF IH BID PRN for SHORTNESS OF BREATH, (Reported) Carbidopa/Levodopa 1 Each Tablet.er, 1 TAB PO TID, (Reported) Clopidogrel Bisulfate 75 Mg Tablet, 75 MG PO DAILY, (Reported) Insulin Aspart 100 Unit/1 Ml Susp, 10 UNIT SQ AC, (Reported) Insulin Detemir 100 Unit/1 Ml Insuln.pen, 20 UNITS SC HS, (Reported) Ipratropium/Albuterol Sulfate 3 Ml Ampul.neb, 3 ML NEB Q4H, (Reported) Isosorbide Mononitrate 30 Mg Tab.er.24h, 30 MG PO DAILY, (Reported) Losartan Potassium 100 Mg Tablet, 100 MG PO DAILY, (Reported) Magnesium Oxide 400 Mg Tablet, 400 MG PO DAILY, (Reported) Menthol 113.6 Gm Gel..gram., 1 GM TP DAILY PRN for MUSCLE CRAMPS, (Reported) Nystatin 100,000 Unit/1 Ml Oral.susp, 5 ML PO QID, (Reported) Omeprazole 20 Mg Tablet.dr, 20 MG PO DAILY Prescribed by: STEVAN PATTON on 07/29/19 1446 Pantoprazole Sodium 40 Mg Tablet.dr, 40 MG PO DAILY, (Reported) Potassium Gluconate 99 Mg Tablet, 99 MG PO DAILY, (Reported) Prednisone 20 Mg Tab, 20 MG PO DAILY 1 tab twice a day for 4 days then 1 tab daily for 4 days Prescribed by: YVETTE JACKMAN on 03/26/19 1320 Prednisone 20 Mg Tab, 40 MG PO BID Prescribed by: JOSE KATZ on 07/17/19 0721 Prednisone 20 Mg Tab, 40 MG PO DAILY Prescribed by: RULA GARCIA on 08/14/19 1245 Prednisone 10 Mg Tab.ds.pk, 10 MG PO DAILY Take 6 tabs(60mg)daily,decrease by 1 tab(10mg)every other day. Prescribed by: LELE DEGROOT on 09/18/19 1437 Prednisone 20 Mg Tab, 60 MG PO DAILY 3 tabs daily for 3 days 2 tabs daily for 3 days 1 tab daily for 3 days Prescribed by: JOSE KATZ on 09/24/19 1802 Ropinirole HCl 4 Mg Tablet, 12 MG PO HS, (Reported) TAKES 3 (4MG) TABLETS Tramadol HCl 50 Mg Tablet, 50 MG PO HS PRN for PAIN-MODERATE, (Reported) Patient Home Medication List Home Medication List Reviewed: Yes Review of Systems Review of Systems Constitutional: see HPI EENTM: see HPI Respiratory: see HPI, short of breath Cardiovascular: no symptoms reported Genitourinary: no symptoms reported Musculoskeletal: no symptoms reported Skin: no symptoms reported Psychiatric/Neurological: No Symptoms Reported Hematologic/Lymphatic: No Symptoms Reported Immunological/Allergic: no symptoms reported Past Nyoiwil-Gfkgss-Qlkjoh Hx Patient Social History Alcohol Beverage of Choice: Beer Type Used: Cigars Former Smoker, Quit: May 25, 1996 2nd Hand Smoke Exposure: Yes Recent Hopitalizations: No Immunizations Up To Date Tetanus Booster (TDap): Unknown PED Vaccines UTD: Yes Date of Pneumonia Vaccine: Sep 25, 2018 Date of Influenza Vaccine: Sep 25, 2018 Seasonal Allergies Seasonal Allergies: No Past Medical History Surgeries: Yes (CATARACTS, KNEE SCOPE, SKIN CANCERS REMOVED) Coronary Stent, Orthopedic Respiratory: Yes (O2 3L NC) Sleep Apnea, COPD Currently Using CPAP: Yes Currently Using BIPAP: No Cardiac: Yes (stents x5) Coronary Artery Disease, Heart Attack, High Cholesterol, Hypertension Neurological: No Reproductive Disorders: No Sexually Transmitted Disease: No HIV/AIDS: No Genitourinary: No Gastrointestinal: Yes Gastroesophageal Reflux Musculoskeletal: Yes Arthritis, Fractures Endocrine: Yes Diabetes, Insulin dep HEENT: Yes Cataract Loss of Vision: Bilateral Hearing Impairment: Hard of Hearing Cancer: Yes Skin Did You Recieve Any Treatments: Yes What Type of Treatment Did You: Surgical Intervention Psychosocial: Yes Anxiety Integumentary: Yes (ACTINIC KERATOSIS, SKIN CANCER) Eczema Blood Disorders: No Adverse Reaction/Blood Tranf: No (HAS HAD BLOOD WITH NO REACTION) Family Medical History Cancer 09 BROTHER Cancer of colon 09 BROTHER Cataract 03 MOTHER Chest pain 03 MOTHER Congenital heart disease 03 FATHER Congestive heart failure 03 FATHER Family history: Cardiovascular disease 03 FATHER 03 MOTHER Family history: Diabetes mellitus 03 FATHER Family history: Gastrointestinal disease 03 MOTHER Family history: Hypertension 03 MOTHER Hearing loss 03 FATHER Heart disease 03 FATHER History of - respiratory disease 03 FATHER Kidney disease 03 FATHER Myocardial infarction 03 FATHER Stroke 03 FATHER No Family History of: Abdominal aortic aneurysm Jae's disease Alcoholism Aphasia Cystic fibrosis Dementia Dysphagia Family history: Allergy Family history: Alzheimer's disease Family history: Arthritis Family history: Asthma Family history: Breast disease Family history: Coronary thrombosis Family history: Glaucoma Family history: Osteoporosis Family history: Thyroid disorder Headache Hereditary disease History of - anemia History of - disorder History of drug abuse Human immunodeficiency virus (HIV) seropositivity Hypercholesterolemia Infertile Malignant neoplasm of lung Parkinson's disease Prostate cancer Psychotic disorder Seizure disorder Tuberculosis Visual impairment Physical Exam Vital Signs - First Documented 10/17/19 10/17/19 11:04 11:28 Temp 36.1 Pulse 83 Resp 22 B/P (MAP) 149/110 (123) Pulse Ox 99 O2 Delivery Nasal Cannula O2 Flow Rate 6.00 Capillary Refill : Height: 6'0.00" Weight: 204lbs. 9.0oz. [id number]; 25.00 BMI Method:Stated General Appearance: WD/WN, mild distress, other (speaks in short phrases, poor air movement, oxygen saturation 100% on his baseline 3 L.) Eyes: Bilateral Eye Normal Inspection, Bilateral Eye PERRL, Bilateral Eye EOMI Neck: non-tender, full range of motion Respiratory: respiratory distress, decreased breath sounds Cardiovascular: regular rate, rhythm, no murmur Gastrointestinal: normal bowel sounds, non tender, soft Neurologic/Psychiatric: alert, normal mood/affect, oriented x 3 Skin: normal color, warm/dry Progress/Results/Core Measures Suspected Sepsis SIRS Temperature: Pulse: Respiratory Rate: Laboratory Tests 10/17/19 11:10: White Blood Count 4.0L Blood Pressure / Mean: Laboratory Tests 10/17/19 11:10: Creatinine 0.80, Platelet Count 210, Total Bilirubin 0.3 Results/Orders Lab Results Laboratory Tests Test 10/17/19 11:10 10/17/19 11:15 Range/Units White Blood Count 4.0 L 4.3-11.0 10^3/uL Red Blood Count 3.54 L 4.35-5.85 10^6/uL Hemoglobin 10.7 L 13.3-17.7 G/DL Hematocrit 33 L 40-54 % Mean Corpuscular Volume 94 80-99 FL Mean Corpuscular Hemoglobin 30 25-34 PG Mean Corpuscular Hemoglobin Concent 32 32-36 G/DL Red Cell Distribution Width 14.5 10.0-14.5 % Platelet Count 210 130-400 10^3/uL Mean Platelet Volume 8.8 7.4-10.4 FL Neutrophils (%) (Auto) 76 H 42-75 % Lymphocytes (%) (Auto) 9 L 12-44 % Monocytes (%) (Auto) 12 0-12 % Eosinophils (%) (Auto) 3 0-10 % Basophils (%) (Auto) 1 0-10 % Neutrophils # (Auto) 3.0 1.8-7.8 X 10^3 Lymphocytes # (Auto) 0.4 L 1.0-4.0 X 10^3 Monocytes # (Auto) 0.5 0.0-1.0 X 10^3 Eosinophils # (Auto) 0.1 0.0-0.3 10^3/uL Basophils # (Auto) 0.0 0.0-0.1 10^3/uL Sodium Level 139 135-145 MMOL/L Potassium Level 3.9 3.6-5.0 MMOL/L Chloride Level 102 98-107 MMOL/L Carbon Dioxide Level 26 21-32 MMOL/L Anion Gap 11 5-14 MMOL/L Blood Urea Nitrogen 16 7-18 MG/DL Creatinine 0.80 0.60-1.30 MG/DL Estimat Glomerular Filtration Rate > 60 BUN/Creatinine Ratio 20 Glucose Level 192 H 70-105 MG/DL Calcium Level 9.3 8.5-10.1 MG/DL Corrected Calcium 9.5 8.5-10.1 MG/DL Total Bilirubin 0.3 0.1-1.0 MG/DL Aspartate Amino Transf (AST/SGOT) 13 5-34 U/L Alanine Aminotransferase (ALT/SGPT) 9 0-55 U/L Alkaline Phosphatase 47 40-136 U/L Total Protein 6.7 6.4-8.2 GM/DL Albumin 3.8 3.2-4.5 GM/DL Blood Gas Puncture Site LT RADIAL Blood Gas Patient Temperature 36.1 Arterial Blood pH 7.44 H 7.37-7.43 Arterial Blood Partial Pressure CO2 39 35-45 MMHG Arterial Blood Partial Pressure O2 107 H 79-93 MMHG Arterial Blood HCO3 27 23-27 MMOL/L Arterial Blood Total CO2 28.0 21.0-31.0 MMOL/L Arterial Blood Oxygen Saturation 99 94-100 % Arterial Blood Base Excess 2.8 H -2.5-2.5 MMOL/L Ahsan Test YES-POS Blood Gas Ventilator Setting NO Blood Gas Inspired Oxygen 6 My Orders Orders - TATA HERMOSILLO APRN Cbc With Automated Diff (10/17/19 11:10) Comprehensive Metabolic Panel (10/17/19 11:10) Chest 1 View, Ap/Pa Only (10/17/19 11:10) Ed Iv/Invasive Line Start (10/17/19 11:10) Methylprednisolone Sod Succ (Solu-Medrol (10/17/19 11:15) Albuterol/Ipra Inhalation Soln (Duoneb I (10/17/19 11:15) Morphine Injection (Morphine Injection (10/17/19 11:10) Svn Small Volume Nebulizer (10/17/19 11:10) Albuterol Pre-Mix Nebs (Rt) (Proventil (10/17/19 11:15) Svn Small Volume Nebulizer (10/17/19 11:10) BNP (10/17/19 11:15) Arterial Blood Gas (10/17/19 11:18) Ipratropium 0.02% Neb Solution (Atrovent (10/17/19 11:19) Medications Given in ED Current Medications Medications Dose Ordered Sig/Regino Route Start Time Stop Time Status Last Admin Dose Admin Albuterol Sulfate 2.5 mg ONCE ONCE INH 10/17/19 11:15 10/17/19 11:16 DC 10/17/19 11:25 15 MG Ipratropium [place] 0.5 mg STK-MED ONCE IH 10/17/19 11:19 10/17/19 11:25 DC 10/17/19 11:26 0.5 MG Methylprednisolone Sodium Succinate 125 mg ONCE ONCE IVP 10/17/19 11:15 10/17/19 11:16 DC 10/17/19 11:24 125 MG Vital Signs/I&O 10/17/19 10/17/19 11:04 11:28 Temp 36.1 Pulse 83 Resp 22 B/P (MAP) 149/110 (123) Pulse Ox 99 O2 Delivery Nasal Cannula Nasal Cannula O2 Flow Rate 6.00 6.00 Capillary Refill : Departure Impression Primary Impression: COPD (chronic obstructive pulmonary disease) Qualified Codes: J44.9 - Chronic obstructive pulmonary disease, unspecified Disposition: 01 HOME, SELF-CARE Condition: Stable Departure-Patient Inst. Decision time for Depature: 11:56 Referrals: YVETTE JACKMAN DO (PCP/Family) Primary Care Physician Patient Instructions: COPD Including Emphysema (DC) Add. Discharge Instructions: 1. Return to ER for any concerns 2. Follow-up with your doctor next week for recheck. Steroids as directed. Breathing treatments every 4 hours. All discharge instructions reviewed with patient and/or family. Voiced underst anding. Scripts Prednisone (Prednisone) 20 Mg Tab 20 MG PO DAILY, #11 TAB Take 3 tabs(60mg)daily, decrease by 1/2 tab(10mg)daily. Prov: TATA HERMOSILLO APRN 10/17/19 Copy Copies To 1: YVETTE JACKMAN PETER J APRN Oct 17, 2019 11:15
[2019-10-17 11:17] LABS: BASOPHILS % (AUTO) 1 % (0-10); EOSINOPHILS # (AUTO) 0.1 10^3/uL (0.0-0.3); EOSINOPHILS % (AUTO) 3 % (0-10); HEMATOCRIT 33 % (40-54); HEMOGLOBIN 10.7 G/DL (13.3-17.7); LYMPHOCYTES # (AUTO) 0.4 X 10^3 (1.0-4.0); LYMPHOCYTES % (AUTO) 9 % (12-44); MEAN CORPUSCULAR HEMOGLOBIN 30 PG (25-34); MEAN CORPUSCULAR HGB CONC 32 G/DL (32-36); MEAN CORPUSCULAR VOLUME 94 FL (80-99); MEAN PLATELET VOLUME 8.8 FL (7.4-10.4); MONOCYTES # (AUTO) 0.5 X 10^3 (0.0-1.0); MONOCYTES % (AUTO) 12 % (0-12); NEUTROPHILS % (AUTO) 76 % (42-75); PLATELET COUNT 210 10^3/uL (130-400); RED CELL DISTRIBUTION WIDTH 14.5 % (10.0-14.5)
[2019-10-17] MEDS ORDERED: RT-IPRATROPIUM (ATROVENT) 0.5MG/2.5ML AMP IH ONE (11:19)
[2019-10-17 11:25] LABS: ABG BASE EXCESS 2.8 MMOL/L (-2.5-2.5); ABG OXYGEN SATURATION 99 % (94-100); ABG PCO2 39 MMHG (35-45); ABG PH 7.44 (7.37-7.43); ABG PO2 107 MMHG (79-93)
[2019-10-17 11:26] LABS: ALLENS TEST YES-POS; INSPIRED O2 6; PATIENT TEMP 36.1; VENTILATOR NO
--- NOTE | 2019-10-17 11:28 | NUR ---
Pt having difficulty staying awake. Morphine hekd at this time. Carrillo Munguia notified.
[2019-10-17 11:38] LABS: ALANINE AMINOTRANSFERASE 9 U/L (0-55); ALBUMIN 3.8 GM/DL (3.2-4.5); ALKALINE PHOSPHATASE 47 U/L (40-136); BILIRUBIN,TOTAL 0.3 MG/DL (0.1-1.0); BUN/CREATININE RATIO 20; CALCIUM 9.3 MG/DL (8.5-10.1); CARBON DIOXIDE 26 MMOL/L (21-32); CHLORIDE 102 MMOL/L (98-107); GFR ESTIMATED > 60; GLUCOSE 192 MG/DL (70-105); POTASSIUM 3.9 MMOL/L (3.6-5.0); SODIUM 139 MMOL/L (135-145); TOTAL PROTEIN 6.7 GM/DL (6.4-8.2)
[2019-10-17] MEDS ORDERED: PRD20T PO (11:57)
--- NOTE | 2019-10-17 12:18 | Diagnostic Imaging Report ---
EXAMINATION: Portable erect AP chest at 11:39 a.m. INDICATION: Shortness of breath. FINDINGS: The heart size is within normal limits and stable when compared to 09/24/2019. The chronic pulmonary changes seen on the prior study are again evident. There is still no sign of failure, pneumonia or pleural effusion to indicate an acute abnormality. The mediastinum is not widened. The osseous structures are intact. The long-standing fracture of the left clavicle seen previously is only partially visualized on this exam. IMPRESSION: Stable chest. There has been no adverse change since the prior exam. Dictated by: Dictated on workstation # [id number]
[2019-10-17 13:01] VITALS: BP 153/68
== END 2019-10-17 13:00 | disposition home or self-care (01) ==
LOC: EDUNIT# 11:04 → ER 11:05
DX: J44.9 Chronic obstructive pulmonary disease, unspecified (principal); I10 Essential (primary) hypertension; E11.9 Type 2 diabetes mellitus without complications; F41.9 Anxiety disorder, unspecified; E78.00 Pure hypercholesterolemia, unspecified; I25.2 Old myocardial infarction; I25.10 Atherosclerotic heart disease of native coronary artery without angina pectoris; K21.9 Gastro-esophageal reflux disease without esophagitis; G47.30 Sleep apnea, unspecified; Z99.81 Dependence on supplemental oxygen; Z88.5 Allergy status to narcotic agent; Z79.82 Long term (current) use of aspirin; Z79.02 Long term (current) use of antithrombotics/antiplatelets; Z79.4 Long term (current) use of insulin; Z79.52 Long term (current) use of systemic steroids; Z87.891 Personal history of nicotine dependence; Z85.828 Personal history of other malignant neoplasm of skin; Z95.5 Presence of coronary angioplasty implant and graft; Z80.0 Family history of malignant neoplasm of digestive organs; Z82.49 Family history of ischemic heart disease and other diseases of the circulatory system
CPT/HCPCS: 36415; 71045; 80053; 82805; 83880; 85025; 94640; 94644

== ENCOUNTER 2019-10-22 14:07 | Outpatient (RCR) | payer MEDICARE ==
[~2019-10-22 14:07] MED LIST changes: -GLIM2TAB2 PO; +GLIM2TAB4 PO; -GLIM4TAB3 PO; +GLIM4TAB5 PO; +MECL-172 PO; -MECL12.579 PO; -OMEP-280 PO; +OMEP20CA18 PO; -ROPI2TAB4 PO; +ROPI2TAB6 PO; -RT-ALBUTEROL SULF 2.5 MG/3 ML PRE-MIX VIAL INH ONE
[2019-11-18] MEDS ORDERED: ACHYD1T PO (20:44)
[2019-11-18] MEDS ORDERED: QUET50TA55 (20:44)
[2019-12-23] MEDS ORDERED: AZIT500T PO (00:12)
[2019-12-31] MEDS ORDERED: C250T PO (10:24)
[2019-12-31] MEDS ORDERED: OMEP20CA18 PO ×2 (10:24→12:43)
[2019-12-31] MEDS ORDERED: CHOL10007 PO (10:24)
[2019-12-31] MEDS ORDERED: PRD20T PO (10:24)
[2019-12-31] MEDS ORDERED: ACET-2267 PO (10:24)
[2019-12-31] MEDS ORDERED: VIT1TABL82 PO (10:24)
[2019-12-31] MEDS ORDERED: LOSA100T57 PO (12:43)
== END 2020-01-20 | disposition home or self-care (01) ==
LOC: PULM 14:07
PROVIDERS: ATTEND Family Medicine
DX: J44.9 Chronic obstructive pulmonary disease, unspecified (principal)

== ENCOUNTER → 2019-10-22 | Outpatient (CLI) | payer MEDICARE, OTHER ==
--- NOTE | 2019-10-15 08:37 | NUR ---
PT SCHEDULED FOR PULMONARY REHAB EVALUATION; LOOKED UP FILE TO SEE IF CURRENT PFT IN RECORDS (FOR EVAL) AND TO GET MAILING ADDRESS TO SEND PAPERWORK.
[~2019-10-22] MED LIST changes: +RT-ALBUTEROL SULF 2.5 MG/3 ML PRE-MIX VIAL INH ONE
== END ==
LOC: RT 14:09
PROVIDERS: ATTEND Nurse Practitioner Family
DX: J43.9 Emphysema, unspecified (principal); G47.33 Obstructive sleep apnea (adult) (pediatric); Z87.891 Personal history of nicotine dependence
CPT/HCPCS: 94060; 94726; 94729

== ENCOUNTER 2019-11-18 20:25 | Emergency (ER) | payer MEDICARE ==
[~2019-11-18] VITALS: Ht 183 cm; Wt 84.7 kg
[2019-11-18] MEDS ORDERED: HYDR-3820 (20:44)
[2019-11-18] MEDS ORDERED: QUET50TA55 (20:44)
--- NOTE | 2019-11-18 21:02 | Diagnostic Imaging Report ---
INDICATION: Shortness of breath. Comparison is made with prior examination from 10/17/2019. FINDINGS: Heart size is normal. Mediastinum is unremarkable. Lungs are clear. There is no pleural effusion or pneumothorax. There is some venous congestion. IMPRESSION: Mild central pulmonary venous congestion. Dictated by: Dictated on workstation # [id number]
[2019-11-18 21:10] LABS: BASOPHILS % (AUTO) 0 % (0-10); EOSINOPHILS # (AUTO) 0.1 10^3/uL (0.0-0.3); EOSINOPHILS % (AUTO) 1 % (0-10); HEMATOCRIT 33 % (40-54); HEMOGLOBIN 10.7 G/DL (13.3-17.7); LYMPHOCYTES # (AUTO) 0.5 X 10^3 (1.0-4.0); LYMPHOCYTES % (AUTO) 6 % (12-44); MEAN CORPUSCULAR HEMOGLOBIN 30 PG (25-34); MEAN CORPUSCULAR HGB CONC 33 G/DL (32-36); MEAN CORPUSCULAR VOLUME 93 FL (80-99); MEAN PLATELET VOLUME 9.1 FL (7.4-10.4); MONOCYTES # (AUTO) 0.7 X 10^3 (0.0-1.0); MONOCYTES % (AUTO) 9 % (0-12); NEUTROPHILS # (AUTO) 7.1 X 10^3 (1.8-7.8); NEUTROPHILS % (AUTO) 84 % (42-75); PLATELET COUNT 194 10^3/uL (130-400); RED CELL DISTRIBUTION WIDTH 14.8 % (10.0-14.5); WHITE BLOOD COUNT 8.5 10^3/uL (4.3-11.0)
[2019-11-18 21:33] LABS: ALANINE AMINOTRANSFERASE < 6 U/L (0-55); ALBUMIN 4.2 GM/DL (3.2-4.5); ALKALINE PHOSPHATASE 58 U/L (40-136); BILIRUBIN,TOTAL 0.4 MG/DL (0.1-1.0); BUN/CREATININE RATIO 16; CALCIUM 9.2 MG/DL (8.5-10.1); CARBON DIOXIDE 25 MMOL/L (21-32); CHLORIDE 102 MMOL/L (98-107); CREATININE SERUM 0.81 MG/DL (0.60-1.30); GFR ESTIMATED > 60; GLUCOSE 146 MG/DL (70-105); POTASSIUM 3.8 MMOL/L (3.6-5.0); SODIUM 138 MMOL/L (135-145); TOTAL PROTEIN 6.8 GM/DL (6.4-8.2)
--- NOTE | 2019-11-18 21:35 | NUR ---
PT REPORTS CHEST WALL PAIN 12/01 ERP AT BEDSIDE. Addendum: 11/18/19 at 214 by GEOVANNA PT REPORTED PAIN AT 2129
--- NOTE | 2019-11-18 21:39 | ED General ---
General Chief Complaint: Respiratory Problems Stated Complaint: SOB, NAUSEOUS Nursing Triage Note: increased soa, n/v x3 days Nursing Sepsis Screen: No Definite Risk Source of Information: Patient Exam Limitations: No Limitations History of Present Illness Date Seen by Provider: Nov 18, 2019 Time Seen by Provider: 20:40 Initial Comments This 79-year-old gentleman presents to the emergency room with complaints of jj rtness of breath, productive cough, and nausea for the past 3 days. He uses nebulizer treatments at home which are helpful. He denies any fever or chest pain. He has a history of coronary artery disease and diastolic dysfunction. His primary care providers Dr. Barakat. 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 He has a history of COPD. Allergies and Home Medications Allergies Coded Allergies: hydrocodone (Verified Allergy, Mild, NAUSEA, 07/25/19) oxycodone (Verified Allergy, Mild, NAUSEA, 07/25/19) Home Medications Albuterol Sulfate 1 Puff Puff, 2 PUFF INH Q4H PRN for SHORTNESS OF BREATH, (Reported) 1 PUFF = 90 MCG Amlodipine Besylate 5 Mg Tablet, 5 MG PO DAILY, (Reported) Aspirin 81 Mg Tablet.dr, 81 MG PO DAILY, (Reported) Budesonide/Formoterol Fumarate 10.2 Gm Hfa.aer.ad, 2 PUFF IH BID PRN for SHORTNESS OF BREATH, (Reported) Carbidopa/Levodopa 1 Each Tablet.er, 1 TAB PO TID, (Reported) Insulin Aspart 100 Unit/1 Ml Susp, 10 UNIT SQ AC, (Reported) Insulin Detemir 100 Unit/1 Ml Insuln.pen, 20 UNITS SC HS, (Reported) Ipratropium/Albuterol Sulfate 3 Ml Ampul.neb, 3 ML NEB Q4H, (Reported) Isosorbide Mononitrate 30 Mg Tab.er.24h, 30 MG PO DAILY, (Reported) Losartan Potassium 100 Mg Tablet, 100 MG PO DAILY, (Reported) Omeprazole 20 Mg Tablet.dr, 20 MG PO DAILY Prescribed by: STEVAN PATTON on 07/29/19 1446 Pantoprazole Sodium 40 Mg Tablet.dr, 40 MG PO DAILY, (Reported) Prednisone 10 Mg Tab.ds.pk, 10 MG PO DAILY Take 6 tabs(60mg)daily,decrease by 1 tab(10mg)every other day. Prescribed by: LELE DEGROOT on 09/18/19 1437 Ropinirole HCl 4 Mg Tablet, 12 MG PO HS, (Reported) TAKES 3 (4MG) TABLETS Patient Home Medication List Home Medication List Reviewed: Yes Review of Systems Review of Systems Constitutional: no symptoms reported EENTM: no symptoms reported Respiratory: see HPI Cardiovascular: see HPI Gastrointestinal: see HPI Genitourinary: no symptoms reported Musculoskeletal: no symptoms reported Skin: no symptoms reported Psychiatric/Neurological: No Symptoms Reported Hematologic/Lymphatic: No Symptoms Reported Immunological/Allergic: no symptoms reported Past Glqwnvy-Ppxsop-Sdlung Hx Past Med/Social Hx: Reviewed Nursing Past Med/Soc Hx Patient Social History Alcohol Use: Rarely Uses Number of Drinks Today: AA Alcohol Beverage of Choice: Beer Recreational Drug Use: No Smoking Status: Former Smoker Type Used: Cigars Former Smoker, Quit: May 25, 1996 2nd Hand Smoke Exposure: Yes Recent Foreign Travel: No Contact w/Someone Who Travel: No Recent Infectious Disease Expo: No Recent Hopitalizations: No Physical Abuse: No Sexual Abuse: No Mistreated: No Fear: No Immunizations Up To Date Tetanus Booster (TDap): Unknown PED Vaccines UTD: Yes Date of Pneumonia Vaccine: Sep 25, 2018 Date of Influenza Vaccine: Sep 25, 2018 Seasonal Allergies Seasonal Allergies: No Past Medical History Surgeries: Yes (CATARACTS, KNEE SCOPE, SKIN CANCERS REMOVED) Coronary Stent, Orthopedic Respiratory: Yes (O2 4L NC) Sleep Apnea, COPD Currently Using CPAP: Yes Currently Using BIPAP: No Cardiac: Yes (stents x5) Coronary Artery Disease, Heart Attack, High Cholesterol, Hypertension Neurological: No Reproductive Disorders: No Sexually Transmitted Disease: No HIV/AIDS: No Genitourinary: No Gastrointestinal: Yes Gastroesophageal Reflux Musculoskeletal: Yes Arthritis, Fractures Endocrine: Yes Diabetes, Insulin dep HEENT: Yes Cataract Loss of Vision: Bilateral Hearing Impairment: Hard of Hearing Cancer: Yes Skin Did You Recieve Any Treatments: Yes What Type of Treatment Did You: Surgical Intervention Psychosocial: Yes Anxiety Integumentary: Yes (ACTINIC KERATOSIS, SKIN CANCER) Eczema Blood Disorders: No Adverse Reaction/Blood Tranf: No Family Medical History Reviewed Nursing Family Hx Cancer 09 BROTHER Cancer of colon 09 BROTHER Cataract 03 MOTHER Chest pain 03 MOTHER Congenital heart disease 03 FATHER Congestive heart failure 03 FATHER Family history: Cardiovascular disease 03 FATHER 03 MOTHER Family history: Diabetes mellitus 03 FATHER Family history: Gastrointestinal disease 03 MOTHER Family history: Hypertension 03 MOTHER Hearing loss 03 FATHER Heart disease 03 FATHER History of - respiratory disease 03 FATHER Kidney disease 03 FATHER Myocardial infarction 03 FATHER Stroke 03 FATHER No Family History of: Abdominal aortic aneurysm Jae's disease Alcoholism Aphasia Cystic fibrosis Dementia Dysphagia Family history: Allergy Family history: Alzheimer's disease Family history: Arthritis Family history: Asthma Family history: Breast disease Family history: Coronary thrombosis Family history: Glaucoma Family history: Osteoporosis Family history: Thyroid disorder Headache Hereditary disease History of - anemia History of - disorder History of drug abuse Human immunodeficiency virus (HIV) seropositivity Hypercholesterolemia Infertile Malignant neoplasm of lung Parkinson's disease Prostate cancer Psychotic disorder Seizure disorder Tuberculosis Visual impairment Physical Exam Vital Signs Vital Signs - First Documented 11/18/19 20:32 Temp 36.5 Pulse 72 Resp 22 B/P (MAP) 164/57 (92) Pulse Ox 97 O2 Delivery Nasal Cannula O2 Flow Rate 4.00 Capillary Refill : Less Than 3 Seconds Height, Weight, BMI Height: 6'0.00" Weight: 204lbs. 9.0oz. 92.709714eu; 25.00 BMI Method:Stated General Appearance: No Apparent Distress, WD/WN HEENT: PERRL/EOMI, Normal ENT Inspection, Pharynx Normal Neck: Normal Inspection; No JVD Respiratory: Lungs Clear, No Accessory Muscle Use, No Respiratory Distress, Decreased Breath Sounds; No Wheezing Cardiovascular: Regular Rate, Rhythm, No Edema, No Murmur, Normal Peripheral Pulses Gastrointestinal: Normal Bowel Sounds, Non Tender, Soft Extremity: Normal Inspection, Non Tender, No Pedal Edema Neurologic/Psychiatric: Alert, Oriented x3, No Motor/Sensory Deficits, Normal Mood/Affect, bisque placer II-XII Norm as Tested Skin: Normal Color, Warm/Dry Progress/Results/Core Measures Suspected Sepsis Recent Fever Within 48 Hours: No Infection Criteria Present: None New/Unexplained Altered Menta: No Sepsis Screen: No Definite Risk SIRS Temperature: Pulse: 72 Respiratory Rate: 22 Laboratory Tests 11/18/19 20:55: White Blood Count 8.5 Blood Pressure 164 /57 Mean: 92 Laboratory Tests 11/18/19 20:55: Creatinine 0.81, INR Comment 1.0, Platelet Count 194, Total Bilirubin 0.4 Results/Orders Lab Results Laboratory Tests Test 11/18/19 20:55 11/18/19 21:33 11/19/19 01:15 Range/Units White Blood Count 8.5 4.3-11.0 10^3/uL Red Blood Count 3.53 L 4.35-5.85 10^6/uL Hemoglobin 10.7 L 13.3-17.7 G/DL Hematocrit 33 L 40-54 % Mean Corpuscular Volume 93 80-99 FL Mean Corpuscular Hemoglobin 30 25-34 PG Mean Corpuscular Hemoglobin Concent 33 32-36 G/DL Red Cell Distribution Width 14.8 H 10.0-14.5 % Platelet Count 194 130-400 10^3/uL Mean Platelet Volume 9.1 7.4-10.4 FL Neutrophils (%) (Auto) 84 H 42-75 % Lymphocytes (%) (Auto) 6 L 12-44 % Monocytes (%) (Auto) 9 0-12 % Eosinophils (%) (Auto) 1 0-10 % Basophils (%) (Auto) 0 0-10 % Neutrophils # (Auto) 7.1 1.8-7.8 X 10^3 Lymphocytes # (Auto) 0.5 L 1.0-4.0 X 10^3 Monocytes # (Auto) 0.7 0.0-1.0 X 10^3 Eosinophils # (Auto) 0.1 0.0-0.3 10^3/uL Basophils # (Auto) 0.0 0.0-0.1 10^3/uL Prothrombin Time 13.5 12.2-14.7 SEC INR Comment 1.0 0.8-1.4 Activated Partial Thromboplast Time 27 24-35 SEC Sodium Level 138 135-145 MMOL/L Potassium Level 3.8 3.6-5.0 MMOL/L Chloride Level 102 98-107 MMOL/L Carbon Dioxide Level 25 21-32 MMOL/L Anion Gap 11 5-14 MMOL/L Blood Urea Nitrogen 13 7-18 MG/DL Creatinine 0.81 0.60-1.30 MG/DL Estimat Glomerular Filtration Rate > 60 BUN/Creatinine Ratio 16 Glucose Level 146 H 70-105 MG/DL Calcium Level 9.2 8.5-10.1 MG/DL Corrected Calcium 9.0 8.5-10.1 MG/DL Total Bilirubin 0.4 0.1-1.0 MG/DL Aspartate Amino Transf (AST/SGOT) 11 5-34 U/L Alanine Aminotransferase (ALT/SGPT) < 6 0-55 U/L Alkaline Phosphatase 58 40-136 U/L C-Reactive Protein High Sensitivity 0.43 0.00-0.50 MG/DL B-Type Natriuretic Peptide 30.6 <100.0 PG/ML Total Protein 6.8 6.4-8.2 GM/DL Albumin 4.2 3.2-4.5 GM/DL Magnesium Level 1.9 1.6-2.4 MG/DL Myoglobin 65.3 10.0-92.0 NG/ML Troponin I < 0.028 < 0.028 <0.028 NG/ML Lipase 22 8-78 U/L Micro Results Microbiology 11/18/19 Influenza Types A,B Antigen (KARLENE) - Final, Complete My Orders Orders - DEACON RIBEIRO MD Ed Iv/Invasive Line Start (11/18/19 20:48) BNP (11/18/19 20:48) Cbc With Automated Diff (11/18/19 20:48) Comprehensive Metabolic Panel (11/18/19 20:48) Hs C Reactive Protein (11/18/19 20:48) Influenza A And B Antigens (11/18/19 20:48) Chest Pa/Lat (2 View) (11/18/19 20:48) Nitroglycerin 0.4 Mg Btl 25's (Nitrostat (11/18/19 21:45) Aspirin Chewable Tablet (Baby Aspirin Ch (11/18/19 21:45) Magnesium (11/18/19 21:35) Ekg Tracing (11/18/19 21:35) Myoglobin Serum (11/18/19 21:35) Protime With Inr (11/18/19 21:35) Partial Thromboplastin Time (11/18/19 21:35) O2 (11/18/19 21:35) Monitor-Rhythm Ecg Trace Only (11/18/19 21:35) Troponin I (11/18/19 21:35) Albuterol/Ipra Inhalation Soln (Duoneb I (11/18/19 22:15) Svn Small Volume Nebulizer (11/18/19 22:05) Guaifenesin Tablet (Mucinex Tablet) (11/18/19 22:15) Troponin I (11/19/19 01:30) Ondansetron Injection (Zofran Injectio (11/18/19 22:30) Famotidine Injection (Pepcid Injection) (11/18/19 22:30) Lipase (11/19/19 00:39) Medications Given in ED Current Medications Medications Dose Ordered Sig/Regino Route Start Time Stop Time Status Last Admin Dose Admin Albuterol/ Ipratropium 3 ml ONCE ONCE INH 11/18/19 22:15 11/18/19 22:16 DC 11/18/19 22:12 3 ML Aspirin 324 mg ONCE ONCE PO 11/18/19 21:45 11/18/19 21:46 DC 11/18/19 21:40 324 MG Famotidine 20 mg ONCE ONCE IVP 11/18/19 22:30 11/18/19 22:31 DC 11/18/19 22:29 20 MG Guaifenesin 600 mg ONCE ONCE PO 11/18/19 22:15 11/18/19 22:16 DC 11/18/19 22:30 600 MG Nitroglycerin 0.4 mg UD PRN SL 11/18/19 21:45 11/19/19 02:17 DC 11/18/19 21:44 0.4 MG Ondansetron HCl 8 mg ONCE ONCE IVP 11/18/19 22:30 11/18/19 22:31 DC 11/18/19 22:29 8 MG Vital Signs/I&O 11/18/19 11/18/19 11/18/19 11/19/19 20:32 20:55 22:12 02:11 Temp 36.5 36.2 Pulse 72 95 Resp 22 20 B/P (MAP) 164/57 (92) 121/51 (92) Pulse Ox 97 93 96 O2 Delivery Nasal Cannula Nasal Cannula Nasal Cannula Nasal Cannula O2 Flow Rate 4.00 4.00 4.50 4.00 Capillary Refill : Less Than 3 Seconds Blood Pressure Mean: 92 Progress Note #1: Time: 21:38 Progress Note Patient has now developed chest pain he rates as 3/10. He does have history of coronary artery disease with stents. He does sometimes have to take nitroglycerin. We will add her chest pain order set including EKG, aspirin, and nitroglycerin. Progress Note #2: Time: 23:23 Progress Note Patient remains pain-free after 2 nitroglycerin. He was treated with Zofran and Pepcid for his nausea. He received a DuoNeb treatment and shortness of breath. Awaiting a 4 hour troponin for cardiac rule out. Progress Note #3: Progress Note Repeat troponin at 4 hours was negative. He had no further chest pain. He was discharged to outpatient follow-up. Patient states he has prednisone at home he can start if needed. I advised that he discuss this with his primary care provider tomorrow to ensure he has a blood sugar management plan in place for hyperglycemia associated with steroid use before he starts the prednisone. ECG Initial ECG Impression Date: Nov 18, 2019 Initial ECG Impression Time: 21:37 Initial ECG Rate: 69 Initial ECG Rhythm: Normal Sinus Initial ECG Intervals: Normal Comment Sinus rhythm with no ST elevation or depression. PA-C noted. No abnormal intervals or axis deviation. Diagnostic Imaging Diagonstic Imaging: Xray Plain Films/CT/US/NM/MRI: chest Comments Chest x-ray viewed by me and report reviewed. See report below: NAME: DEVIN MORALES MED REC#: [id number] PT STATUS: REG ER : 1940 PHYSICIAN: DEACON RIBEIRO MD ADMIT DATE: 11/18/19/ER Signed Date of Exam:11/18/19 CHEST PA/LAT (2 VIEW) INDICATION: Shortness of breath. Comparison is made with prior examination from 10/17/2019. FINDINGS: Heart size is normal. Mediastinum is unremarkable. Lungs are clear. There is no pleural effusion or pneumothorax. There is some venous congestion. IMPRESSION: Mild central pulmonary venous congestion. Dictated by: Dictated on workstation # [id number] Dict: 11/18/192099 Trans: 11/18/192117 BALAJI [id number] Interpreted by: JELLY VASQUEZ MD Electronically signed by: JELLY VASQUEZ MD 11/18/192117 Departure Impression Primary Impression: Upper respiratory infection Qualified Codes: J06.9 - Acute upper respiratory infection, unspecified Additional Impressions: Chest pain Qualified Codes: R07.9 - Chest pain, unspecified COPD exacerbation Disposition: HOME, SELF-CARE Condition: Improved Departure-Patient Inst. Decision time for Depature: 02:08 Referrals: YVETTE BARAKAT DO (PCP/Family) Primary Care Physician Patient Instructions: Viral Upper Respiratory Infection, Adult (DC), Chest Pain, Chronic Obstructive Pulmonary Disease (COPD), Including Emphysema Add. Discharge Instructions: Follow-up with your primary care provider and your stone carriage operator as soon as possible. Please call this morning to schedule appointments. If you feel you need to start prednisone (steroids) for treatment of your COPD, please contact her primary care provider and discuss a plan for managing elevation in blood sugars before you start the steroids. Return to the emergency room if you have worsening symptoms. Continue with your nebulized treatments and inhalers. You may use Mucinex (guaifenesin) to help manage mucus and phlegm. All discharge instructions reviewed with patient and/or family. Voiced understanding. Copy Copies To 1: YVETTE BARAKAT JOSHUA T MD Nov 18, 2019 21:38
[2019-11-18] MEDS: NITROGLYCERIN 0.4 MG SL TABS BTL 25'S SL PRN ×2 (21:41→21:44)
[2019-11-18] MEDS ORDERED: ASPIRIN 81 MG CHEW (CHILDREN'S ASA) PO ONE (21:45)
[2019-11-18 21:48] LABS: PROTHROMBIN TIME PATIENT 13.5 SEC (12.2-14.7)
--- NOTE | 2019-11-18 21:50 | NUR ---
pt reports being pain free after 2 doses sl ntg
[2019-11-18 21:59] LABS: MAGNESIUM 1.9 MG/DL (1.6-2.4)
[2019-11-18] MEDS ORDERED: RT-ALBUTEROL/IPRATROPIUM 3 ML (DUONEB) VIAL INH ONE (22:15)
[2019-11-18] MEDS ORDERED: guaiFENesin (MUCINEX) 600 MG TAB PO ONE (22:15)
[2019-11-18] MEDS ORDERED: ONDANSETRON 4 MG/2 ML (SDV) Z0FRAN IVP ONE (22:30)
[2019-11-18] MEDS ORDERED: FAMOTIDINE 20MG/2ML IV (PEPCID) IVP ONE (22:30)
[2019-11-19 02:11] VITALS: BP 121/51
== END 2019-11-19 02:16 | disposition home or self-care (01) ==
LOC: EDUNIT# 20:25 → ER 20:29
DX: J06.9 Acute upper respiratory infection, unspecified (principal); J44.1 Chronic obstructive pulmonary disease with (acute) exacerbation; I25.10 Atherosclerotic heart disease of native coronary artery without angina pectoris; E78.00 Pure hypercholesterolemia, unspecified; I10 Essential (primary) hypertension; I25.2 Old myocardial infarction; K21.9 Gastro-esophageal reflux disease without esophagitis; E11.9 Type 2 diabetes mellitus without complications; F41.9 Anxiety disorder, unspecified; Z99.81 Dependence on supplemental oxygen; Z88.5 Allergy status to narcotic agent; Z79.82 Long term (current) use of aspirin; Z79.4 Long term (current) use of insulin; Z77.22 Contact with and (suspected) exposure to environmental tobacco smoke (acute) (chronic); Z87.891 Personal history of nicotine dependence; Z85.828 Personal history of other malignant neoplasm of skin; Z80.0 Family history of malignant neoplasm of digestive organs; Z82.49 Family history of ischemic heart disease and other diseases of the circulatory system
CPT/HCPCS: 36415; 71046; 80053; 83690; 83735; 83874; 83880; 84484; 85025; 85610; 85730; 86141; 87804; 93005; 93041; 94640; 96374; 96375

== ENCOUNTER 2019-12-22 21:18 | Emergency (ER) | payer MEDICARE ==
[~2019-12-22] VITALS: Ht 182.9 cm; Wt 83.9 kg
[~2019-12-22 21:18] MED LIST changes: +ACHYD1T; +QUET50TA55
[2019-12-22 22:47] LABS: ALANINE AMINOTRANSFERASE 10 U/L (0-55); ALBUMIN 4.2 GM/DL (3.2-4.5); ALKALINE PHOSPHATASE 54 U/L (40-136); BILIRUBIN,TOTAL 0.3 MG/DL (0.1-1.0); BUN/CREATININE RATIO 15; CALCIUM 9.1 MG/DL (8.5-10.1); CARBON DIOXIDE 24 MMOL/L (21-32); CHLORIDE 98 MMOL/L (98-107); CREATINE KINASE 91 U/L (30-200); CREATININE SERUM 0.98 MG/DL (0.60-1.30); GFR ESTIMATED > 60; GLUCOSE 193 MG/DL (70-105); MAGNESIUM 1.7 MG/DL (1.6-2.4); POTASSIUM 4.2 MMOL/L (3.6-5.0); SODIUM 135 MMOL/L (135-145); TOTAL PROTEIN 6.9 GM/DL (6.4-8.2)
[2019-12-22 23:07] LABS: CREATINE KINASE MB 3.9 NG/ML (<6.6)
[2019-12-22 23:32] LABS: BASOPHILS % (AUTO) 0 % (0-10); EOSINOPHILS # (AUTO) 0.1 10^3/uL (0.0-0.3); EOSINOPHILS % (AUTO) 2 % (0-10); HEMATOCRIT 36 % (40-54); HEMOGLOBIN 11.9 G/DL (13.3-17.7); LYMPHOCYTES # (AUTO) 0.7 X 10^3 (1.0-4.0); LYMPHOCYTES % (AUTO) 9 % (12-44); MEAN CORPUSCULAR HEMOGLOBIN 30 PG (25-34); MEAN CORPUSCULAR HGB CONC 33 G/DL (32-36); MEAN CORPUSCULAR VOLUME 91 FL (80-99); MEAN PLATELET VOLUME 9.3 FL (7.4-10.4); MONOCYTES # (AUTO) 0.9 X 10^3 (0.0-1.0); MONOCYTES % (AUTO) 12 % (0-12); NEUTROPHILS # (AUTO) 5.6 X 10^3 (1.8-7.8); NEUTROPHILS % (AUTO) 77 % (42-75); PLATELET COUNT 195 10^3/uL (130-400); RED CELL DISTRIBUTION WIDTH 13.5 % (10.0-14.5); WHITE BLOOD COUNT 7.3 10^3/uL (4.3-11.0)
[2019-12-22 23:35] LABS: PROTHROMBIN TIME PATIENT 13.3 SEC (12.2-14.7)
[2019-12-22 23:38] LABS: FIBRIN DEGRADATION PRODUCTS 0.58 UG/ML (0.00-0.49)
[2019-12-22 23:55] LABS: ERYTHROCYTE SEDIMENTATION RATE 24 MM/HR (0-30)
--- NOTE | 2019-12-23 00:11 | ED Cough/URI ---
General Chief Complaint: Respiratory Problems Stated Complaint: SOB Nursing Triage Note: PT AMBULATE TO ROOM 10 WITH C/O SOB STARTING TODAY. PT STATES THIS IS CHRONIC AND IS SEEN OFTEN IN THE ED FOR SAME C/O. NO C/O N/V/D, FEVER, OR COUGH. Sepsis Screen: No Definite Risk Source: patient History of Present Illness Date Seen by Provider: Dec 22, 2019 Time Seen by Provider: 21:32 Initial Comments PT ARRIVES VIA POV FROM HOME-DROVE SELF HERE PT WITH COPD C/O "SAME OLE, SAME OLE--I CAN'T BREATHE" C/O SHORTNESS OF BREATH SINCE THIS AM STATES SHORTNESS OF BREATH IS WORSE WITH EXERTION OR LAYING DOWN. NO FEVER CHRONIC COUGH WITH OCCASIONAL CLEAR SPUTUM--NO SIGNIFICANT COUGH TODAY NO CHEST PAIN OR PAIN WITH BREATHING NO SWELLING IN LEGS/FEET OR PAIN IN CALVES NO DIZZINESS OR SYNCOPE NO PALPITATIONS NO SORE THROAT NO HEADACHE NO BODY ACHES NO GI SYMPTOMS PT HAS ALBUTEROL INHALER AND NEBULIZER BUT HAS NOT BEEN USING EITHER STATES HE USED HIS SYMBICORT JUST PRIOR TO ARRIVAL PT IS FORMER SMOKER, QUIT SMOKING 2 1/2 PPD 20 YEARS AGO. PT ALSO HAS CARDIAC HISTORY WITH MULTIPLE STENTS. WEARS HOME O2 AT 4-5L/NC CONTINUOUSLY O2 SAT IS 98% ON ROOM AIR ON ARRIVAL, AFTER WALKING INTO AND OUT OF ER TWICE, (DUE TO COVID-19 PANDEMIC-PT WAITED IN HIS VEHICLE UNTIL HE WAS ABLE TO BE BROUGHT BACK TO ROOM.) HAD A TELE-VISIT WITH DR. JACKMAN TODAY, BUT STATES "I DIDN'T TELL HER ABOUT THIS-I DIDN'T MENTION MY BREATHING TO HER" STATES " I RAN OUT OF PAIN PILLS" --PT STATES HE WAS GIVEN PRESCRIPTIONS FOR A "MUSCLE RELAXANT AND STEROIDS" STATES HE HAS CHRONIC RIGHT KNEE PAIN AND WAS SCHEDULED TO HAVE ELECTIVE SURGERY ON HIS KNEE THIS PAST SUNDAY, BUT IT WAS CANCELLED AND POST-PONED FOR AT LEAST 8 WEEKS, DUE TO SEVERE COVID-19 PANDEMIC. HE STATES "MY HEART'S TOO BAD AND MY LUNGS ARE TOO BAD TO PUT ME UNDER" PT WITH MULTITUDE OF VISITS, WITH 6 VISITS SINCE 08/14/19 FOR EXACT SAME COMPLAINT. NO RECENT HOSPITALIZATION OR RECENT ANTIBIOTIC USE. PT WITH LONG HISTORY OF NON-COMPLIANCE NO KNOWN SICK CONTACTS, OR RECENT TRAVEL OR KNOWN EXPOSURE TO FLU OR COVID-19 PCP: DR. JACKMAN FLIGHT ENGINEER: DR. SINGH ORTHOPEDIC SURGEON: DR. OBREGON AT [address] Allergies and Home Medications Allergies Coded Allergies: hydrocodone (Verified Allergy, Mild, NAUSEA, 07/25/19) oxycodone (Verified Allergy, Mild, NAUSEA, 07/25/19) Home Medications Albuterol Sulfate 1 Puff Puff, 2 PUFF INH Q4H PRN for SHORTNESS OF BREATH, (Reported) 1 PUFF = 90 MCG Amlodipine Besylate 5 Mg Tablet, 5 MG PO DAILY, (Reported) Aspirin 81 Mg Tablet.dr, 81 MG PO DAILY, (Reported) Azithromycin 500 Mg Tablet, 500 MG PO DAILY Prescribed by: CIERA MADDEN on 12/23/19 0012 Budesonide/Formoterol Fumarate 10.2 Gm Hfa.aer.ad, 2 PUFF IH BID PRN for SHORTNESS OF BREATH, (Reported) Carbidopa/Levodopa 1 Each Tablet.er, 1 TAB PO TID, (Reported) Insulin Aspart 100 Unit/1 Ml Susp, 10 UNIT SQ AC, (Reported) Insulin Detemir 100 Unit/1 Ml Insuln.pen, 20 UNITS SC HS, (Reported) Ipratropium/Albuterol Sulfate 3 Ml Ampul.neb, 3 ML NEB Q4H, (Reported) Isosorbide Mononitrate 30 Mg Tab.er.24h, 30 MG PO DAILY, (Reported) Losartan Potassium 100 Mg Tablet, 100 MG PO DAILY, (Reported) Omeprazole 20 Mg Tablet.dr, 20 MG PO DAILY Prescribed by: STEVAN PATTON on 07/29/19 1446 Pantoprazole Sodium 40 Mg Tablet.dr, 40 MG PO DAILY, (Reported) Prednisone 10 Mg Tab.ds.pk, 10 MG PO DAILY Take 6 tabs(60mg)daily,decrease by 1 tab(10mg)every other day. Prescribed by: LELE DEGROOT on 09/18/19 1437 Ropinirole HCl 4 Mg Tablet, 12 MG PO HS, (Reported) TAKES 3 (4MG) TABLETS Patient Home Medication List Home Medication List Reviewed: Yes Review of Systems Review of Systems Constitutional: No chills, No diaphoresis, No dizziness, No fever, No malaise, No weakness EENTM: see HPI; No ear pain, No nose congestion, No throat pain Respiratory: see HPI, cough, dyspnea on exertion, orthopnea, short of breath Cardiovascular: no symptoms reported; No chest pain, No edema, No palpitations, No syncope Gastrointestinal: no symptoms reported; No abdominal pain, No diarrhea, No nausea, No vomiting Genitourinary: no symptoms reported Musculoskeletal: see HPI (CHRONIC RIGHT KNEE PAIN ); No back pain Skin: no symptoms reported Psychiatric/Neurological: No Symptoms Reported; Denies Headache Hematologic/Lymphatic: No Symptoms Reported Immunological/Allergic: no symptoms reported Past Vrlybce-Yxxniq-Enxtan Hx Past Med/Social Hx: Reviewed and Corrections made Patient Social History Alcohol Use: Occasionally Uses (HISTORY OF ABUSE,, NOW ONLY OCCASIONALLY USES) Number of Drinks Today: AA Alcohol Beverage of Choice: Beer Recreational Drug Use: No Smoking Status: Former Smoker (2 1/ PPD, QUIT 20 YEARS AGO) Type Used: Cigars, Cigarettes Former Smoker, Quit: May 25, 1996 2nd Hand Smoke Exposure: Yes Recent Foreign Travel: No Contact w/Someone Who Travel: No Recent Infectious Disease Expo: No Recent Hopitalizations: No Physical Abuse: No Sexual Abuse: No Mistreated: No Fear: No Immunizations Up To Date Tetanus Booster (TDap): Unknown PED Vaccines UTD: Yes Date of Pneumonia Vaccine: Sep 25, 2018 Date of Influenza Vaccine: Sep 25, 2018 Seasonal Allergies Seasonal Allergies: No Past Medical History Surgeries: Yes (CATARACTS;R KNEE SCOPE; SKIN CANCERS REMOVED;CARDIAC CATHS- STENTS X 5) Cardiac, Coronary Stent, Eye Surgery, Orthopedic Respiratory: Yes (O2 4L NC) Sleep Apnea, COPD Currently Using CPAP: Yes Currently Using BIPAP: No Cardiac: Yes (CARDIAC CATHS-STENTS X 5) Coronary Artery Disease, Heart Attack, High Cholesterol, Hypertension Neurological: No Reproductive Disorders: No Sexually Transmitted Disease: No HIV/AIDS: No Genitourinary: No Gastrointestinal: Yes Gastroesophageal Reflux Musculoskeletal: Yes (CHRONIC RIGHT KNEE PAIN ; RIGHT KNEE SCOPE) Arthritis, Fractures Endocrine: Yes Diabetes, Insulin dep HEENT: Yes Cataract Loss of Vision: Bilateral Hearing Impairment: Hard of Hearing Cancer: Yes Skin Did You Recieve Any Treatments: Yes What Type of Treatment Did You: Surgical Intervention Psychosocial: Yes Anxiety Integumentary: Yes (ACTINIC KERATOSIS, SKIN CANCER) Eczema Blood Disorders: No Adverse Reaction/Blood Tranf: No Family Medical History Cancer 09 BROTHER Cancer of colon 09 BROTHER Cataract 03 MOTHER Chest pain 03 MOTHER Congenital heart disease 03 FATHER Congestive heart failure 03 FATHER Family history: Cardiovascular disease 03 FATHER 03 MOTHER Family history: Diabetes mellitus 03 FATHER Family history: Gastrointestinal disease 03 MOTHER Family history: Hypertension 03 MOTHER Hearing loss 03 FATHER Heart disease 03 FATHER History of - respiratory disease 03 FATHER Kidney disease 03 FATHER Myocardial infarction 03 FATHER Stroke 03 FATHER No Family History of: Abdominal aortic aneurysm [place]'s disease Alcoholism Aphasia Cystic fibrosis Dementia Dysphagia Family history: Allergy Family history: Alzheimer's disease Family history: Arthritis Family history: Asthma Family history: Breast disease Family history: Coronary thrombosis Family history: Glaucoma Family history: Osteoporosis Family history: Thyroid disorder Headache Hereditary disease History of - anemia History of - disorder History of drug abuse Human immunodeficiency virus (HIV) seropositivity Hypercholesterolemia Infertile Malignant neoplasm of lung Parkinson's disease Prostate cancer Psychotic disorder Seizure disorder Tuberculosis Visual impairment Physical Exam Vital Signs - First Documented 12/22/19 21:36 Temp 36.4 Pulse 90 Resp 18 B/P (MAP) 149/85 (106) Pulse Ox 97 O2 Delivery Nasal Cannula O2 Flow Rate 5.00 Capillary Refill : Less Than 3 Seconds Height: 6'0.00" Weight: 204lbs. 9.0oz. 92.207221ug; 25.00 BMI Method:Stated General Appearance: WD/WN, no apparent distress, other (SMILING, TALKS RAPIDLY, AND SOMEWHAT MUMBLED AND TALKS NON-STOP AT LENGTH.--NORMAL FOR PT. DOES NOT APPEAR ILL OR TO BE IN ANY DISCOMFORT OR DISTRESS. NO COUGH OR DYSPNEA NOTED AT ANY TIME. SMILING, LAUGHING, JOKING) HEENT: PERRL/EOMI, normal ENT inspection, other (EDENTULOUS) Neck: normal inspection Respiratory: normal breath sounds, no respiratory distress, no accessory muscle use; No crackles, No rales, No rhonchi, No wheezing Cardiovascular: normal peripheral pulses, regular rate, rhythm, no edema, no JVD, no murmur Gastrointestinal: normal bowel sounds, non tender, soft Extremities: normal inspection, normal capillary refill Neurologic/Psychiatric: bean sorter II-XII nml as tested, no motor/sensory deficits, alert, normal mood/affect, oriented x 3 Skin: normal color, warm/dry Focused Exam Lactate Level 12/22/19 22:00: Lactic Acid Level 2.78*H Lactic Acid Level Laboratory Tests Test 12/22/19 22:00 Lactic Acid Level 2.78 MMOL/L (0.50-2.00) *H Progress/Results/Core Measures Suspected Sepsis Recent Fever Within 48 Hours: No Infection Criteria Present: None New/Unexplained Altered Menta: No Sepsis Screen: No Definite Risk SIRS Temperature: Pulse: 90 Respiratory Rate: 18 Laboratory Tests 12/22/19 23:14: White Blood Count 7.3 Blood Pressure 149 /85 Mean: 106 12/22/19 22:00: Lactic Acid Level 2.78*H Laboratory Tests 12/22/19 22:00: Creatinine 0.98, Total Bilirubin 0.3 12/22/19 23:14: INR Comment 1.0, Platelet Count 195 Results/Orders Lab Results Laboratory Tests Test 12/22/19 22:00 12/22/19 22:16 12/22/19 23:14 Range/Units Sodium Level 135 135-145 MMOL/L Potassium Level 4.2 3.6-5.0 MMOL/L Chloride Level 98 98-107 MMOL/L Carbon Dioxide Level 24 21-32 MMOL/L Anion Gap 13 5-14 MMOL/L Blood Urea Nitrogen 15 7-18 MG/DL Creatinine 0.98 0.60-1.30 MG/DL Estimat Glomerular Filtration Rate > 60 BUN/Creatinine Ratio 15 Glucose Level 193 H 70-105 MG/DL Lactic Acid Level 2.78 *H 0.50-2.00 MMOL/L Calcium Level 9.1 8.5-10.1 MG/DL Corrected Calcium 8.9 8.5-10.1 MG/DL Magnesium Level 1.7 1.6-2.4 MG/DL Total Bilirubin 0.3 0.1-1.0 MG/DL Aspartate Amino Transf (AST/SGOT) 16 5-34 U/L Alanine Aminotransferase (ALT/SGPT) 10 0-55 U/L Alkaline Phosphatase 54 40-136 U/L Lactate Dehydrogenase 258 H 125-220 U/L Total Creatine Kinase 91 30-200 U/L Creatine Kinase MB 3.9 <6.6 NG/ML Myoglobin 79.9 10.0-92.0 NG/ML Troponin I < 0.028 <0.028 NG/ML C-Reactive Protein High Sensitivity 0.20 0.00-0.50 MG/DL B-Type Natriuretic Peptide 60.6 <100.0 PG/ML Total Protein 6.9 6.4-8.2 GM/DL Albumin 4.2 3.2-4.5 GM/DL Procalcitonin 0.03 <0.10 NG/ML Monoscreen NEGATIVE NEGATIVE Group A Streptococcus Screen NEGATIVE NEGATIVE White Blood Count 7.3 4.3-11.0 10^3/uL Red Blood Count 3.91 L 4.35-5.85 10^6/uL Hemoglobin 11.9 L 13.3-17.7 G/DL Hematocrit 36 L 40-54 % Mean Corpuscular Volume 91 80-99 FL Mean Corpuscular Hemoglobin 30 25-34 PG Mean Corpuscular Hemoglobin Concent 33 32-36 G/DL Red Cell Distribution Width 13.5 10.0-14.5 % Platelet Count 195 130-400 10^3/uL Mean Platelet Volume 9.3 7.4-10.4 FL Neutrophils (%) (Auto) 77 H 42-75 % Lymphocytes (%) (Auto) 9 L 12-44 % Monocytes (%) (Auto) 12 0-12 % Eosinophils (%) (Auto) 2 0-10 % Basophils (%) (Auto) 0 0-10 % Neutrophils # (Auto) 5.6 1.8-7.8 X 10^3 Lymphocytes # (Auto) 0.7 L 1.0-4.0 X 10^3 Monocytes # (Auto) 0.9 0.0-1.0 X 10^3 Eosinophils # (Auto) 0.1 0.0-0.3 10^3/uL Basophils # (Auto) 0.0 0.0-0.1 10^3/uL Erythrocyte Sedimentation Rate 24 0-30 MM/HR Prothrombin Time 13.3 12.2-14.7 SEC INR Comment 1.0 0.8-1.4 Activated Partial Thromboplast Time 22 L 24-35 SEC D-Dimer 0.58 H 0.00-0.49 UG/ML Micro Results Microbiology 12/22/19 Influenza Types A,B Antigen (KARLENE) - Final, Complete My Orders Orders - CIERA MADDEN DO Cbc With Automated Diff (12/22/19 21:30) Comprehensive Metabolic Panel (12/22/19 21:30) Ferritin (12/22/19 21:30) Fibrin Degradation Products (12/22/19 21:30) Procalcitonin (Pct) (12/22/19 21:30) Hs C Reactive Protein (12/22/19 21:30) Erythrocyte Sedimentation Rate (12/22/19 21:30) LDH (12/22/19 21:30) Blood Culture (12/22/19 21:30) Influenza A And B Antigens (12/22/19 21:30) Rapid Strep A Screen (12/22/19 21:30) BNP (12/22/19 21:30) Creatine Kinase (12/22/19 21:30) Creatine Kinase Mb (12/22/19 21:30) Lactic Acid Analyzer (12/22/19 21:30) Magnesium (12/22/19 21:30) Monotest (12/22/19 21:30) Protime With Inr (12/22/19:30) Partial Thromboplastin Time (12/22/19 21:30) Myoglobin Serum (12/22/19 21:30) Troponin I (12/22/19 21:30) Ed Iv/Invasive Line Start (12/22/19 21:30) O2 (12/22/19 21:30) Monitor-Rhythm Ecg Trace Only (12/22/19 21:30) Chest 1 View, Ap/Pa Only (12/22/19 21:36) Ekg Tracing (12/22/19 21:36) Azithromycin Tablet (Zithromax Tablet) (12/23/19 00:15) Azithromycin Tablet (Zithromax Tablet) (12/23/19 00:14) Medications Given in ED Current Medications Medications Dose Ordered Sig/Regino Route Start Time Stop Time Status Last Admin Dose Admin Azithromycin 500 mg ONCE ONCE PO 12/23/19 00:15 12/23/19 00:25 DC 12/23/19 00:28 500 MG Vital Signs/I&O 12/22/19 12/22/19 12/23/19 21:36 21:36 00:38 Temp 36.4 Pulse 90 77 Resp 18 19 B/P (MAP) 149/85 (106) 121/72 Pulse Ox 97 98 98 O2 Delivery Nasal Cannula Nasal Cannula Nasal Cannula O2 Flow Rate 5.00 5.00 5.00 Capillary Refill : Less Than 3 Seconds Blood Pressure Mean: 106 Progress Note : Progress Note PPE DONNED PRIOR TO ENTERING PT'S ROOM AND WORN AT ALL TIMES DURING ENTIRE ER STAY, WHILE IN ROOM AND WITH ALL PT CONTACT. NO COUGH, NO FEVER, NO DYSPNEA,NO HYPOXIA AT ANY TIME DURING ER STAY VITALS NORMAL NO DETERIORATION IN PT'S CONDITION DURING ER STAY COVID-19 TESTING PERFORMED PT ADVISED TO SELF QUARANTINE HIMSELF AND ALL FAMILY MEMBERS ECG Initial ECG Impression Date: Dec 22, 2019 Initial ECG Impression Time: 21:53 Initial ECG Rate: 80 Initial ECG Rhythm: Normal Sinus (PVC'S, PAC'S) Diagnostic Imaging Comments CXR--NO ACUTE PROCESS, PENDING RADIOLOGIST REVIEW Reviewed: Reviewed by Me Departure Impression Primary Impression: COPD (chronic obstructive pulmonary disease) Additional Impression: COVID 19 P.U.I Disposition: HOME, SELF-CARE Condition: Stable Departure-Patient Inst. Referrals: YVETTE JACKMAN DO (PCP/Family) Primary Care Physician Patient Instructions: COVID19, Exacerbation of COPD Add. Discharge Instructions: USE YOUR SYMBICORT INHALER 2 PUFFS TWICE A DAY EVERY DAY USE YOUR ALBUTEROL INHALER WITH SPACER 2 PUFFS EVERY 4 HOURS NEEDED FOR BR EATHING CONTINUE YOUR REGULAR MEDICATIONS PRESCRIBED SELF QUARANTINE YOURSELF AND ALL HOUSEHOLD MEMBERS FOR THE NEXT 14 DAYS RETURN TO ER IF SYMPTOMS WORSEN All discharge instructions reviewed with patient and/or family. Voiced understanding. Scripts Azithromycin (Zithromax) 500 Mg Tablet 500 MG PO DAILY for 5 Days, #5 TAB Prov: CIERA MADDEN DO 12/23/19 CIERA MADDEN DO Dec 23, 2019 00:11
[2019-12-23] MEDS ORDERED: AZIT500T PO (00:12)
[2019-12-23] MEDS ORDERED: AZITHROMYCIN 250 MG TAB (ZITHROMAX) PO ONE ×2 (00:14→00:15)
[2019-12-23 00:38] VITALS: BP 121/72
--- NOTE | 2019-12-23 06:09 | Diagnostic Imaging Report ---
INDICATION: Cough and congestion. COMPARISON: 11/18/2019. TECHNIQUE: Single frontal radiograph of chest dated 12/22/2019. FINDINGS: The cardiac silhouette is within normal limits in size. No significant pulmonary vascular congestion. Minimal perihilar and bibasilar interstitial opacities. The lungs otherwise appear clear. No large volume pleural effusion. No pneumothorax. Chronic left clavicular fracture. No acute osseous abnormality. IMPRESSION: Perihilar and bibasilar mild atelectasis and/or pneumonitis. Dictated by: Dictated on workstation # [id number]
== END 2019-12-23 00:38 | disposition home or self-care (01) ==
LOC: EDUNIT# 21:18 → ER 21:20
DX: J44.9 Chronic obstructive pulmonary disease, unspecified (principal); M25.561 Pain in right knee; G89.29 Other chronic pain; I25.10 Atherosclerotic heart disease of native coronary artery without angina pectoris; I25.2 Old myocardial infarction; E78.00 Pure hypercholesterolemia, unspecified; I10 Essential (primary) hypertension; K21.9 Gastro-esophageal reflux disease without esophagitis; E11.9 Type 2 diabetes mellitus without complications; M19.91 Primary osteoarthritis, unspecified site; F41.9 Anxiety disorder, unspecified; Z85.828 Personal history of other malignant neoplasm of skin; Z87.891 Personal history of nicotine dependence; Z91.19 Patient's noncompliance with other medical treatment and regimen; Z99.81 Dependence on supplemental oxygen; Z95.5 Presence of coronary angioplasty implant and graft; Z79.82 Long term (current) use of aspirin; Z79.4 Long term (current) use of insulin; Z79.899 Other long term (current) drug therapy
CPT/HCPCS: 36415; 71045; 80053; 82550; 82553; 82728; 83605; 83615; 83735; 83874; 83880; 84145; 84484; 85025; 85379; 85610; 85652; 85730; 86141; 86308; 87040; 87430; 87635; 87804; 93005; 93041

== ENCOUNTER 2019-12-30 21:58 | Observation (INO) | payer MEDICARE ==
[~2019-12-30] VITALS: Ht 182.8 cm; Wt 85.2 kg
[~2019-12-30 21:58] MED LIST changes: -ACHYD1T; +ACHYD1T PO
[2019-12-30] MEDS ORDERED: ONDANSETRON 4 MG/2 ML (SDV) Z0FRAN IVP ONE (22:30)
[2019-12-30] MEDS ORDERED: NITROGLYCERIN 0.4 MG SL TABS BTL 25'S SL PRN (22:30)
[2019-12-30] MEDS ORDERED: ASPIRIN 81 MG CHEW (CHILDREN'S ASA) PO ONE (22:30)
--- NOTE | 2019-12-30 22:31 | ED Cardiac General ---
History of Present Illness General Stated Complaint: CP, SOB, UPSET STOMACH Source: patient, old records History of Present Illness Date Seen by Provider: Dec 30, 2019 Time Seen by Provider: 22:20 Initial Comments PT ARRIVES VIA POV FROM HOME AMBULATES IN ON HIS OWN WITH HIS HOME O2 AT 4L/NC, WITHOUT DIFFICULTY PT STATES AROUND 2100 TONIGHT, HE LAID DOWN TO GO TO SLEEP, AND BECAME SHORT OF BREATH AND BEGAN HAVING MID CHEST PAIN HE ALSO BECAME NAUSEATED AND VOMITED X 1 HE TOOK NTG SL X 2 WITH COMPLETE RELIEF OF CHEST PAIN--STATES "NITRO REALLY HELPED" HE ALSO HAD ALBUTEROL NEB TREATMENT AT 2100 NO SWELLING IN LEGS/ FEET OR PAIN IN CALVES NO SWEATS NO FEVER, NO COUGH OR RECENT ILLNESS NO KNOWN EXPOSURE TO COVID-19 PT WITH FREQUENT VISITS PT SEEN HERE 12/22/19 FOR COPD EXACERBATION--HAD NOT BEEN USING HIS INHALERS OR NEBULIZERS ON REGULAR BASIS PT WAS ADVISED TO SELF QUARANTINE FOR THE NEXT 2 WEEKS, ROUTINE COVID PRECAUTIONS PT TESTED NEGATIVE FOR COVID 19 AT THAT TIME PT WAS TREATED WITH ZITHROMAX AND ADVISED TO USE INHALERS AND NEBULIZER INSTRUCTED. PT HAS LONG HISTORY OF NON-COMPLIANCE PCP: DR. JACKMAN STAIN MAKER: DR. SINGH ORTHOPEDIC SURGEON: DR. OBREGON AT [facility] 4 STATES Allergies and Home Medications Allergies Coded Allergies: hydrocodone (Verified Allergy, Mild, NAUSEA, 07/25/19) oxycodone (Verified Allergy, Mild, NAUSEA, 07/25/19) Home Medications Albuterol Sulfate 1 Puff Puff, 2 PUFF INH Q4H PRN for SHORTNESS OF BREATH, (Reported) 1 PUFF = 90 MCG Amlodipine Besylate 5 Mg Tablet, 5 MG PO DAILY, (Reported) Aspirin 81 Mg Tablet.dr, 81 MG PO DAILY, (Reported) Azithromycin 500 Mg Tablet, 500 MG PO DAILY Prescribed by: CIERA MADDEN on 12/23/19 0012 Budesonide/Formoterol Fumarate 10.2 Gm Hfa.aer.ad, 2 PUFF IH BID PRN for SHORTNESS OF BREATH, (Reported) Carbidopa/Levodopa 1 Each Tablet.er, 1 TAB PO TID, (Reported) Insulin Aspart 100 Unit/1 Ml Susp, 10 UNIT SQ AC, (Reported) Insulin Detemir 100 Unit/1 Ml Insuln.pen, 20 UNITS SC HS, (Reported) Ipratropium/Albuterol Sulfate 3 Ml Ampul.neb, 3 ML NEB Q4H, (Reported) Isosorbide Mononitrate 30 Mg Tab.er.24h, 30 MG PO DAILY, (Reported) Losartan Potassium 100 Mg Tablet, 100 MG PO DAILY, (Reported) Omeprazole 20 Mg Tablet.dr, 20 MG PO DAILY Prescribed by: STEVAN PATTON on 07/29/19 1446 Pantoprazole Sodium 40 Mg Tablet.dr, 40 MG PO DAILY, (Reported) Prednisone 10 Mg Tab.ds.pk, 10 MG PO DAILY Take 6 tabs(60mg)daily,decrease by 1 tab(10mg)every other day. Prescribed by: LELE DEGROOT on 09/18/19 1437 Ropinirole HCl 4 Mg Tablet, 12 MG PO HS, (Reported) TAKES 3 (4MG) TABLETS Patient Home Medication List Home Medication List Reviewed: Yes Review of Systems Review of Systems Constitutional: no symptoms reported; No chills, No dizziness, No fever, No malaise, No weakness EENTM: No Symptoms Reported; No Nose Congestion, No Throat Pain Respiratory: See HPI; Denies Cough; Shortness of Air Cardiovascular: See HPI, Chest Pain; Denies Edema, Denies Irregular Heart Rate, Denies Lightheadedness, Denies Palpitations, Denies Syncope Gastrointestinal: See HPI; Denies Abdominal Pain, Denies Constipated, Denies Diarrhea; Nausea, Vomiting Genitourinary: No Symptoms Reported Musculoskeletal: no symptoms reported, other (CHRONIC RIGHT KNEE PAIN) Skin: no symptoms reported Psychiatric/Neurological: No Symptoms Reported Endocrine: No Symptoms Reported Hematologic/Lymphatic: No Symptoms Reported Past Oxqmgfp-Wfvuvr-Sqgirz Hx Past Med/Social Hx: Reviewed and Corrections made Patient Social History Alcohol Use: Occasionally Uses (HISTORY OF ABUSE, NOW ONLY OCCASIONALLY DRINKS) Alcohol Beverage of Choice: Beer Recreational Drug Use: No Smoking Status: Former Smoker (2 1/2 PPD, QUIT 20 YEARS AGO) Type Used: Cigars, Cigarettes Former Smoker, Quit: May 25, 1996 2nd Hand Smoke Exposure: Yes Recent Hopitalizations: No Immunizations Up To Date Tetanus Booster (TDap): Unknown PED Vaccines UTD: Yes Date of Pneumonia Vaccine: Sep 25, 2018 Date of Influenza Vaccine: Sep 25, 2018 Seasonal Allergies Seasonal Allergies: No Past Medical History Surgeries: Yes (CATARACTS;R KNEE SCOPE; SKIN CANCERS REMOVED;CARDIAC CATHS- STENTS X 5) Cardiac, Coronary Stent, Eye Surgery, Orthopedic Respiratory: Yes (O2 4L NC) Sleep Apnea, COPD Currently Using CPAP: Yes Currently Using BIPAP: No Cardiac: Yes (CARDIAC CATHS-STENTS X 5) Coronary Artery Disease, Heart Attack, High Cholesterol, Hypertension Neurological: Yes Parkinson's Disease Reproductive Disorders: No Sexually Transmitted Disease: No HIV/AIDS: No Genitourinary: No Gastrointestinal: Yes Gastroesophageal Reflux Musculoskeletal: Yes (CHRONIC RIGHT KNEE PAIN ; RIGHT KNEE SCOPE) Arthritis, Fractures Endocrine: Yes Diabetes, Insulin dep HEENT: Yes (BILATERAL CATARACT SURGERY; TEETH REMOVED) Cataract Loss of Vision: Bilateral Hearing Impairment: Hard of Hearing Cancer: Yes Skin Did You Recieve Any Treatments: Yes What Type of Treatment Did You: Surgical Intervention Psychosocial: Yes Anxiety Integumentary: Yes (ACTINIC KERATOSIS, SKIN CANCER) Eczema Blood Disorders: No Adverse Reaction/Blood Tranf: No Family Medical History Cancer 09 BROTHER Cancer of colon 09 BROTHER Cataract 03 MOTHER Chest pain 03 MOTHER Congenital heart disease 03 FATHER Congestive heart failure 03 FATHER Family history: Cardiovascular disease 03 FATHER 03 MOTHER Family history: Diabetes mellitus 03 FATHER Family history: Gastrointestinal disease 03 MOTHER Family history: Hypertension 03 MOTHER Hearing loss 03 FATHER Heart disease 03 FATHER History of - respiratory disease 03 FATHER Kidney disease 03 FATHER Myocardial infarction 03 FATHER Stroke 03 FATHER No Family History of: Abdominal aortic aneurysm Jae's disease Alcoholism Aphasia Cystic fibrosis Dementia Dysphagia Family history: Allergy Family history: Alzheimer's disease Family history: Arthritis Family history: Asthma Family history: Breast disease Family history: Coronary thrombosis Family history: Glaucoma Family history: Osteoporosis Family history: Thyroid disorder Headache Hereditary disease History of - anemia History of - disorder History of drug abuse Human immunodeficiency virus (HIV) seropositivity Hypercholesterolemia Infertile Malignant neoplasm of lung Parkinson's disease Prostate cancer Psychotic disorder Seizure disorder Tuberculosis Visual impairment Physical Exam Vital Signs Vital Signs - First Documented 12/30/19 22:20 Pulse Ox 94 O2 Delivery Nasal Cannula O2 Flow Rate 2.00 Capillary Refill : Height, Weight, BMI Height: 6'0.00" Weight: 204lbs. 9.0oz. 92.043443il; 25.00 BMI Method:Stated General Appearance: No Apparent Distress, WD/WN, Other (SMILING, TALKATIVE, PLEASANT. DOES NOT APPEAR ILL OR TO BE IN ANY DISCOMFORT OR DISTRESS AT THIS TIME. ) HEENT: PERRL/EOMI, Normal ENT Inspection, Other (EDENTULOUS) Neck: Full Range of Motion, Normal Inspection, Non Tender, Supple; No Carotid Bruit, No JVD Respiratory: Chest Non Tender, Normal Breath Sounds, No Accessory Muscle Use, No Respiratory Distress, Decreased Breath Sounds (DIMINSHED IN BASES); No Rales, No Rhonci, No Wheezing Cardiovascular: Regular Rate, Rhythm, No Edema, No JVD, No Murmur, Normal Peripheral Pulses Gastrointestinal: Normal Bowel Sounds, No Organomegaly, No Pulsatile Mass, Non Tender, Soft Extremity: Normal Capillary Refill, Normal Inspection, Normal Range of Motion, Non Tender, No Calf Tenderness, No Pedal Edema Neurologic/Psychiatric: Alert, Oriented x3, No Motor/Sensory Deficits, Normal Mood/Affect, narcotics and/or vice detective II-XII Norm as Tested Skin: Normal Color, Warm/Dry Progress/Results/Core Measures Results/Orders Lab Results Laboratory Tests Test 12/30/19 22:30 Range/Units White Blood Count 7.6 4.3-11.0 10^3/uL Red Blood Count 3.86 L 4.35-5.85 10^6/uL Hemoglobin 11.7 L 13.3-17.7 G/DL Hematocrit 35 L 40-54 % Mean Corpuscular Volume 92 80-99 FL Mean Corpuscular Hemoglobin 30 25-34 PG Mean Corpuscular Hemoglobin Concent 33 32-36 G/DL Red Cell Distribution Width 13.6 10.0-14.5 % Platelet Count 195 130-400 10^3/uL Mean Platelet Volume 9.2 7.4-10.4 FL Neutrophils (%) (Auto) 79 H 42-75 % Lymphocytes (%) (Auto) 9 L 12-44 % Monocytes (%) (Auto) 11 0-12 % Eosinophils (%) (Auto) 2 0-10 % Basophils (%) (Auto) 0 0-10 % Neutrophils # (Auto) 6.0 1.8-7.8 X 10^3 Lymphocytes # (Auto) 0.7 L 1.0-4.0 X 10^3 Monocytes # (Auto) 0.8 0.0-1.0 X 10^3 Eosinophils # (Auto) 0.1 0.0-0.3 10^3/uL Basophils # (Auto) 0.0 0.0-0.1 10^3/uL Prothrombin Time 13.6 12.2-14.7 SEC INR Comment 1.0 0.8-1.4 Activated Partial Thromboplast Time 24 24-35 SEC Sodium Level 135 135-145 MMOL/L Potassium Level 4.3 3.6-5.0 MMOL/L Chloride Level 97 L 98-107 MMOL/L Carbon Dioxide Level 27 21-32 MMOL/L Anion Gap 11 5-14 MMOL/L Blood Urea Nitrogen 27 H 7-18 MG/DL Creatinine 1.02 0.60-1.30 MG/DL Estimat Glomerular Filtration Rate > 60 BUN/Creatinine Ratio 26 Glucose Level 141 H 70-105 MG/DL Calcium Level 9.4 8.5-10.1 MG/DL Corrected Calcium 9.4 8.5-10.1 MG/DL Magnesium Level 1.9 1.6-2.4 MG/DL Total Bilirubin 0.3 0.1-1.0 MG/DL Aspartate Amino Transf (AST/SGOT) 11 5-34 U/L Alanine Aminotransferase (ALT/SGPT) < 6 0-55 U/L Alkaline Phosphatase 52 40-136 U/L Myoglobin 50.8 10.0-92.0 NG/ML Troponin I < 0.028 <0.028 NG/ML B-Type Natriuretic Peptide 15.9 <100.0 PG/ML Total Protein 6.3 L 6.4-8.2 GM/DL Albumin 4.0 3.2-4.5 GM/DL Amylase Level 62 25-125 U/L Lipase 60 8-78 U/L My Orders Orders - CIERA MADDEN DO Cbc With Automated Diff (12/30/19 22:21) Magnesium (12/30/19 22:21) Chest 1 View, Ap/Pa Only (12/30/19 22:21) Ekg Tracing (12/30/19 22:21) Comprehensive Metabolic Panel (12/30/19 22:21) Myoglobin Serum (12/30/19 22:21) Protime With Inr (12/30/19 22:21) Partial Thromboplastin Time (12/30/19 22:21) O2 (12/30/19 22:21) Monitor-Rhythm Ecg Trace Only (12/30/19 22:21) Lipid Panel (12/31/19 06:00) Ed Iv/Invasive Line Start (12/30/19 22:21) Lipase (12/30/19 22:21) Amylase (12/30/19 22:21) BNP (12/30/19 22:21) Troponin I (12/30/19 22:21) Nitroglycerin 0.4 Mg Btl 25's (Nitrostat (12/30/19 22:30) Aspirin Chewable Tablet (Baby Aspirin Ch (12/30/19 22:30) Ondansetron Injection (Zofran Injectio (12/30/19 22:30) Pantoprazole Injection (Protonix Injecti (12/30/19 22:45) Enoxaparin Injection (Lovenox Injection) (12/30/19 23:30) Medications Given in ED Current Medications Medications Dose Ordered Sig/Regino Route Start Time Stop Time Status Last Admin Dose Admin Aspirin 324 mg ONCE ONCE PO 12/30/19 22:30 12/30/19 22:31 DC 12/30/19 22:43 324 MG Ondansetron HCl 4 mg ONCE ONCE IVP 12/30/19 22:30 12/30/19 22:31 DC 12/30/19 22:43 4 MG Pantoprazole 40 mg ONCE ONCE IV 12/30/19 22:45 12/30/19 22:46 DC 12/30/19 22:43 40 MG Vital Signs/I&O 12/30/19 22:20 Pulse Ox 94 O2 Delivery Nasal Cannula O2 Flow Rate 2.00 Progress Progress Note : Progress Note UNEVENTFUL ER STAY NO COMPLAINTS OF CHEST PAIN OR SHORTNESS OF BREATH AT ANY TIME GIVEN ZOFRAN AND PROTONIX WITH RELIEF OF GI SYMPTOMS VITALS STABLE NO DETERIORATION IN PT'S CONDITION DURING ER STAY Initial ECG Impression Date: Dec 30, 2019 Initial ECG Impression Time: 22:33 Initial ECG Rate: 65 Initial ECG Rhythm: Normal Sinus Initial ECG Comparisson: Unchanged Diagnostic Imaging Comments CXR--BIBASILAR ATELECTASIS, PENDING RADIOLOGIST REVIEW Reviewed: Reviewed by Me Departure Communication (Admissions) [id number]--SPOKE WITH DR. JACKMAN, ACCEPTS PT FOR ADMIT. WILL CONSULT CARDIOLOGY IN AM. Impression Primary Impression: Chest pain Additional Impressions: COPD (chronic obstructive pulmonary disease) IDDM (insulin dependent diabetes mellitus) HX OF CAD WITH STENTS Disposition: ADMITTED INPATIENT Condition: Improved Admissions Decision to Admit Reason: Admit from ER (General) Decision to Admit/Date: Dec 30, 2019 Time/Decision to Admit Time: 23:25 Departure-Patient Inst. Referrals: YVETTE JACKMAN DO (PCP/Family) Primary Care Physician CIERA MADDEN DO Dec 30, 2019 22:31
[2019-12-30 22:35] LABS: BASOPHILS % (AUTO) 0 % (0-10); EOSINOPHILS # (AUTO) 0.1 10^3/uL (0.0-0.3); EOSINOPHILS % (AUTO) 2 % (0-10); HEMATOCRIT 35 % (40-54); HEMOGLOBIN 11.7 G/DL (13.3-17.7); LYMPHOCYTES # (AUTO) 0.7 X 10^3 (1.0-4.0); LYMPHOCYTES % (AUTO) 9 % (12-44); MEAN CORPUSCULAR HEMOGLOBIN 30 PG (25-34); MEAN CORPUSCULAR HGB CONC 33 G/DL (32-36); MEAN CORPUSCULAR VOLUME 92 FL (80-99); MEAN PLATELET VOLUME 9.2 FL (7.4-10.4); MONOCYTES # (AUTO) 0.8 X 10^3 (0.0-1.0); MONOCYTES % (AUTO) 11 % (0-12); NEUTROPHILS % (AUTO) 79 % (42-75); PLATELET COUNT 195 10^3/uL (130-400); RED CELL DISTRIBUTION WIDTH 13.6 % (10.0-14.5); WHITE BLOOD COUNT 7.6 10^3/uL (4.3-11.0)
[2019-12-30] MEDS ORDERED: PANTOPRAZOLE 40 MG (PROTONIX) VIAL IV ONE (22:45)
[2019-12-30 22:47] LABS: PROTHROMBIN TIME PATIENT 13.6 SEC (12.2-14.7)
[2019-12-30 22:53] LABS: CHLORIDE 97 MMOL/L (98-107); POTASSIUM 4.3 MMOL/L (3.6-5.0); SODIUM 135 MMOL/L (135-145)
[2019-12-30 22:54] LABS: AMYLASE 62 U/L (25-125); CALCIUM 9.4 MG/DL (8.5-10.1)
[2019-12-30 22:55] LABS: GLUCOSE 141 MG/DL (70-105); TOTAL PROTEIN 6.3 GM/DL (6.4-8.2)
[2019-12-30 22:56] LABS: CARBON DIOXIDE 27 MMOL/L (21-32)
[2019-12-30 22:57] LABS: BILIRUBIN,TOTAL 0.3 MG/DL (0.1-1.0)
[2019-12-30 22:58] LABS: ALKALINE PHOSPHATASE 52 U/L (40-136)
[2019-12-30 22:59] LABS: CREATININE SERUM 1.02 MG/DL (0.60-1.30); GFR ESTIMATED > 60
[2019-12-30 23:00] LABS: BUN/CREATININE RATIO 26
[2019-12-30 23:01] LABS: ALANINE AMINOTRANSFERASE < 6 U/L (0-55); MAGNESIUM 1.9 MG/DL (1.6-2.4)
[2019-12-30 23:02] LABS: LIPASE 60 U/L (8-78)
[2019-12-30] MEDS ORDERED: ENOXAPARIN 100 MG/1 ML (LOVENOX) SYR SC ONE (23:30)
[2019-12-31] VITALS (18 sets, daily range): BP systolic 117–168; BP diastolic 51–80
--- OUTSIDE RECORDS SUMMARY | 2019-12-31 00:13 | XMS REPORT | CCD ---
Author Author Leandro Barakat D.O. Organization [facility] Address [address] [place] [address] Phone Care Team Providers Care Quality Improvement Coordinator Name Role Phone Lita Barakat D.O., PP Unavailable CCM Unavailable Summary Purpose Interface Exchange Insurance Providers Payer name Policy type / Coverage type Covered libertarian ID Effective Begin Date Effective End Date [employer] MEDICARE Medicare Part B [id number] 2019 Unknown Family history Brother Diagnosis Age At Onset Cancer Unknown Father Diagnosis Age At Onset Heart disease Unknown Mother Diagnosis Age At Onset Heart disease Unknown Social History Social History Element Codes Description Effective Dates Tobacco history SNOMED CT: 6516095 Former smoker quit 15 years ago 08/07/2011 Marital status Unknown 12/13/2009 Number of children Unknown 6 12/13/2009 Allergies, Adverse Reactions, Alerts Substance Reaction Codes Entered Date Inactivated Date Status * NO KNOWN DRUG ALLERGIES Unknown 12/13/2009 No Inactiv e Date Active * NO KNOWN FOOD ALLERGIES Unknown 12/13/2009 No Inactiv e Date Active * NO KNOWN ENVIRONMENTAL ALLERGIES Unknown 12/12/2016 N o Inactive Date Active Problems Condition Codes Effective Dates Condition Status Chronic obstructive pulmonary disease with (acute) exa cerbation ICD-9: 491.21 ICD-10: J44.1 07/02/2017 Active Insomnia ICD-9: 780.52 ICD-10: G47.00 09/03/2016 Active Noncompliance with diabetes treatment ICD-9: V15.81 ICD-10: Z91.19 12/25/2018 Active Pain in right knee ICD-9: 719.46 ICD-10: M25.561 12/17/2017 Active Basal cell carcinoma, face ICD-9: 173.31 ICD-10: C44.310 11/12/2019 Active Chronic airway obstruction, not elsewhere classified I CD-9: 496 ICD-10: J44.9 03/10/2014 Active Chronic respiratory failure with hypercapnia ICD-9: 51 8.83 ICD-10: J96.12 01/14/2019 Active Right thyroid nodule ICD-9: 241.0 ICD-10: E04.1 09/11/2019 Active Chronic bronchitis ICD-9: 491.9 ICD-10: J42 08/07/2019 Active FLU VACCINE ICD-9: V04.81 ICD-10: Z23 06/12/2016 Active Moraxella catarrhalis bronchitis ICD-9: 490 ICD-10: J40 08/07/2019 Active Dyspepsia and other specified disorders of function of stomach ICD-9: 536.8 ICD-10: K31.89 07/01/2019 Active Primary insomnia ICD-9: 780.52 ICD-10: F51.01 08/09/2016 Active Renal cyst ICD-9: 753.10 ICD-10: N28.1 07/01/2019 Active Epigastric pain ICD-9: 789.06 ICD-10: R10.13 06/24/2019 Active Nausea ICD-9: 787.02 ICD-10: R11.0 06/24/2019 Active Weight loss ICD-9: 783.21 ICD-10: R63.4 06/24/2019 Active Anemia ICD-9: 285.9 ICD-10: D64.9 03/05/2016 Active Chronic insomnia ICD-9: 780.52 ICD-10: F51.04 06/17/2019 Active Diplopia ICD-9: 368.2 ICD-10: H53.2 06/17/2019 Active [place]a ICD-9: 296.00 ICD-10: F30.9 06/17/2019 Active Vitamin B12 deficiency anemia, unspecified ICD-9: 281. 1 ICD-10: D51.9 05/12/2019 Active Restless legs syndrome ICD-9: 333.94 ICD-10: G25.81 09/03/2016 Active Type 2 diabetes mellitus with hyperglycemia ICD-9: 250 .02 ICD-10: E11.65 08/05/2014 Active Vitamin D deficiency, unspecified ICD-9: 268.9 ICD-10: E55.9 05/08/2019 Active Dizziness and giddiness ICD-9: 780.4 ICD-10: R42 05/09/2012 Active Generalized anxiety disorder ICD-9: 300.02 ICD-10: F41.1 03/24/2019 Active Candidal stomatitis ICD-9: 112.0 ICD-10: B37.0 10/31/2016 Active Chronic obstructive pulmonary disease with acute lower respiratory infection ICD-9: 496 ICD-10: J44.0 04/22/2018 Active DM W/O COMPLICATION TYPE I, UNCONTROLLED ICD-9: 250.03 ICD-10: E10.9 04/02/2016 Active Chronic obstructive pulmonary disease with acute lower respiratory infection ICD-9: 491.22 ICD-10: J44.0 08/02/2017 Active Chronic respiratory failure with hypoxia ICD-9: 518.83 ICD-10: J96.11 12/25/2018 Active Acute recurrent maxillary sinusitis ICD-9: 461.0 ICD-10: J01.01 12/09/2018 Active Essential (primary) hypertension ICD-9: 401.9 ICD-10: I10 08/05/2014 Active Hyperlipidemia, unspecified ICD-9: 272.4 ICD-10: E78.5 08/05/2014 Active Hypothyroidism, unspecified ICD-9: 244.9 ICD-10: E03.9 04/17/2017 Active Acute recurrent sinusitis, unspecified ICD-9: 461.9 ICD-10: J01.91 10/23/2018 Active Basal cell carcinoma of skin of scalp and neck ICD-9: 173.41 ICD-10: C44.41 08/21/2018 Active Bursitis of left shoulder ICD-9: 726.10 ICD-10: M75.52 02/01/2017 Active Acute upper respiratory infection, unspecified ICD-9: 465.9 ICD-10: J06.9 10/02/2016 Active Other retention of urine ICD-9: 788.29 ICD-10: R33.8 04/29/2018 Active Squamous cell carcinoma of skin, unspecified ICD-9: 17 3.92 ICD-10: C44.92 11/14/2015 Active Unilateral primary osteoarthritis, right knee ICD-9: 7 15.96 ICD-10: M17.11 12/11/2017 Active Functional dyspepsia ICD-9: 536.8 ICD-10: K30 01/23/2018 Active Urinary tract infection, site not specified ICD-9: 599 .0 ICD-10: N39.0 01/02/2018 Active Acute bronchitis, unspecified ICD-9: 466.0 ICD-10: J20.9 12/21/2017 Active Actinic keratosis ICD-9: 702.0 ICD-10: L57.0 02/25/2015 Active Inflamed seborrheic keratosis ICD-9: 702.11 ICD-10: L82.0 11/07/2017 Active Laceration without foreign body of right hand, sequela ICD-9: 906.1 ICD-10: S61.411S 10/17/2017 Active Cough ICD-9: 786.2 ICD-10: R05 07/31/2017 Active PNEUMOCOCCAL VACCINE ICD-9: V03.82 ICD-10: Z23 06/12/2016 Active Low back pain ICD-9: 724.2 ICD-10: M54.5 05/22/2017 Active Contracture of muscle, unspecified site ICD-9: 728.85 ICD-10: M62.40 04/17/2017 Active Other abnormality of red blood cells ICD-9: 790.09 ICD-10: R71.8 12/12/2016 Active Dyspnea, unspecified ICD-9: 786.09 ICD-10: R06.00 03/10/2014 Active Pain in left shoulder ICD-9: 719.41 ICD-10: M25.512 01/29/2017 Active Anemia Unknown 12/21/2016 Active Other fatigue ICD-9: 780.79 ICD-10: R53.83 12/21/2016 Active Other iron deficiency anemias ICD-9: 280.9 ICD-10: D50.8 12/21/2016 Active Pneumonia, unspecified organism ICD-9: 486 ICD-10: J18.9 11/14/2016 Active Personal history of pneumonia (recurrent) ICD-9: V12.6 1 ICD-10: Z87.01 10/02/2016 Active Headache ICD-9: 784.0 ICD-10: R51 07/05/2016 Active Toxic gastroenteritis and colitis ICD-9: 787.91 ICD-10: K52.1 07/06/2016 Active Chest pain, unspecified ICD-9: 786.50 ICD-10: R07.9 06/22/2016 Active 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 ICD-9: 414.00 ICD-10: I25.10 06/12/2016 Active Other forms of dyspnea ICD-9: 786.09 ICD-10: R06.09 03/10/2014 Active Shortness of breath ICD-9: 786.05 ICD-10: R06.02 05/31/2016 Active Other specified disorders of Eustachian tube, left ear ICD-9: 381.81 ICD-10: H69.82 04/25/2016 Active Unspecified hearing loss, left ear ICD-9: 389.9 ICD-10: H91.92 04/25/2016 Active Impacted cerumen, left ear ICD-9: 380.4 ICD-10: H61.22 04/04/2016 Active Generalized anxiety disorder ICD-9: 300.00 ICD-10: F41.1 04/02/2016 Active Impacted cerumen, bilateral ICD-9: 380.4 ICD-10: H61.23 04/02/2016 Active 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 ICD-9: 250.00 ICD-10: E11.29 08/13/2013 Active Male erectile dysfunction, unspecified ICD-9: 607.84 ICD-10: N52.9 03/05/2016 Active Testicular hypofunction ICD-9: 257.2 ICD-10: E29.1 03/06/2016 Active Plantar fascial fibromatosis ICD-9: 728.71 ICD-10: M72.2 02/16/2016 Active Pain in right foot ICD-9: 729.5 ICD-10: M79.671 02/13/2016 Active Localized swelling, mass and lump, neck ICD-9: 784.2 ICD-10: R22.1 12/15/2015 Active Localized enlarged lymph nodes ICD-9: 785.6 ICD-10: R59.0 12/05/2015 Active Otalgia, left ear ICD-9: 388.70 ICD-10: H92.02 12/05/2015 Active Encounter for general adult medical examination withou t abnormal findings ICD-9: V70.9 ICD-10: Z00.00 10/04/2015 Active Cellulitis of left lower limb ICD-9: 682.6 ICD-10: L03.116 06/02/2015 Active Encounter for examination and observation for other sp ecified reasons ICD-9: V67.9 ICD-10: Z04.8 07/22/2015 Active Other specified joint disorders, left knee ICD-9: 719. 86 ICD-10: M25.862 06/30/2015 Active Pain in left knee ICD-9: 719.46 ICD-10: M25.562 06/27/2015 Active PREPATELLAR BURSITIS ICD-9: 726.65 06/06/2015 Active Cellulitis of knee, left ICD-9: 682.6 06/02/2015 Active Actinic keratosis ICD-9: 702.0 02/25/2015 Active ASTHMA NOS ICD-9: 493.90 10/27/2014 Active FEBRILE ILLNESS ICD-9: 780.60 10/21/2014 Active PNEUMONIA, ORGANISM ICD-9: 486 09/08/2014 Active COPD with exacerbation ICD-9: 491.21 09/02/2014 Active COUGH ICD-9: 786.2 09/02/2014 Active ROUTINE MEDICAL EXAM ICD-9: V70.0 08/10/2014 Active DM W/O COMPLICATION TYPE II, UNCONTROLLED ICD-9: 250.02 2013 Active HYPERLIPIDEMIA NEC/NOS ICD-9: 272.4 08/05/2014 Active HYPERTENSION ICD-9: 401.9 08/05/2014 Active Lumbar degenerative disc disease ICD-9: 722.52 05/05/2014 Active COPD ICD-9: 496 03/10/2014 Active DYSPNEA ICD-9: 786.09 03/10/2014 Active Chronic low back pain ICD-9: 724.2 12/16/2013 Active Subacromial bursitis ICD-9: 726.19 12/16/2013 Active DM W/O COMPLICATION TYPE II ICD-9: 250.00 08/13/2013 Acti ve Family history of CABG ICD-9: V17.49 07/16/2013 Active ARTHRALGIA-MULTIPLE SITES ICD-9: 719.49 02/11/2013 Active Muscle spasm ICD-9: 728.85 02/11/2013 Active Otitis externa ICD-9: 380.10 10/21/2012 Active Skin lesion of left arm ICD-9: 709.9 10/21/2012 Active VAC STREP PNEUMONIAE-FLU (Medicare) ICD-9: V06.6 07/10/2012 Active DIZZINESS/VERTIGO ICD-9: 780.4 05/09/2012 Active Immunization due ICD-9: V05.9 02/05/2012 Active PHARYNGITIS, ACUTE ICD-9: 462 10/02/2011 Active SINUSITIS, ACUTE ICD-9: 461.9 10/02/2011 Active Hypertension Unknown 07/26/2011 Active CHEST PAIN NOS ICD-9: 786.50 01/18/2011 Active MALAISE AND FATIGUE ICD-9: 780.79 01/18/2011 Active TESTICULAR HYPOFUNC NEC ICD-9: 257.2 12/21/2010 Active BRONCHITIS, ACUTE ICD-9: 466.0 12/19/2010 Active Diaphoresis ICD-9: 780.8 12/19/2010 Active ABDOMINAL PAIN ICD-9: 789.00 04/05/2010 Active DERMATITIS NOS ICD-9: 692.9 04/05/2010 Active DIARRHEA ICD-9: 787.91 04/05/2010 Active FOLLOW-UP EXAM ICD-9: V67.9 12/23/2009 Active Degenerative joint Unknown 12/22/2009 Active EMPHYSEMA NEC ICD-9: 492.8 12/22/2009 Active PAIN IN THORACIC SPINE ICD-9: 724.1 12/16/2009 Active Chronic obstructive pulmonary disease Unknown 0 Active Diabetes Unknown 12/13/2009 Active Emphysema Unknown 12/13/2009 Active Medications Medication Codes Instructions Start Date Stop Date Status Fill Instructions prednisone 20 mg tablet RxNorm: 099056 1 Tablet(s) Oral two remy es a day 12/25/2019 01/01/2020 Active Levemir FlexTouch U-100 Insulin 100 unit/mL (3 mL) sub cutaneous pen RxNorm: 847119 10 Unit(s) Subcutaneous every night at bedtime 12/22/2019 N o Stop Date Active baclofen 10 mg tablet RxNorm: 172343 1 Tablet(s) Oral QPM for p ain/spasm 12/22/2019 01/21/2020 Active ipratropium 0.5 mg-albuterol 3 mg (2.5 mg base)/3 mL n ebulization soln RxNorm: 7512996 USE 1 VIAL IN NEBULIZER Q4H (THIS REPLACES ALBUTEROL S OLUTION) 11/27/2019 12/16/2019 Inactive hydrocodone 10 mg-acetaminophen 325 mg tablet RxNorm: 648704 1 Tablet(s) Oral Q4H as needed for pain 11/13/2019 No Stop Date Active Seroquel 50 mg tablet RxNorm: 908177 1 Tablet(s) Oral QPM as ne eded for sleep 10/07/2019 12/21/2019 Inactive ropinirole 4 mg tablet RxNorm: 853010 3 TABLET(S) BY [facility] DAILY AT BEDTIME FOR RESTLESS LEGS 09/29/2019 12/27/2019 Active Generic For:REQU IP 4 MG TABLET 09/29/2019 7:52:42 AM N O T I C E Last quantity doesn't match original quantity ropinirole 4 mg tablet RxNorm: 241676 3 TABLET(S) BY [facility] DAILY AT BEDTIME FOR RESTLESS LEGS 09/26/2019 09/28/2019 Inactive Generic For:REQU IP 4 MG TABLET 09/26/2019 9:08:48 AM N O T I C E Last quantity doesn't match original quantity ipratropium 0.5 mg-albuterol 3 mg (2.5 mg base)/3 mL n ebulization soln RxNorm: 2542785 USE 1 VIAL IN NEBULIZER EVERY FOUR HOURS (THIS REPLACES ALBUTEROL SOLUTION) 09/26/2019 10/15/2019 Inactive Generic For:*DUO NEB 2.5-0.5 MG/3 ML SOLN 09/26/2019 9:08:53 AM hydrocodone 10 mg-acetaminophen 325 mg tablet RxNorm: 530680 1 Tablet(s) Oral Q4H as needed for pain 09/09/2019 09/09/2019 Inactive hydrocodone 10 mg-acetaminophen 325 mg tablet RxNorm: 945278 1 Tablet(s) Oral Q4H as needed for pain 09/09/2019 09/08/2019 Inactive ondansetron HCl 4 mg tablet RxNorm: 840738 1 Tablet(s) Oral QPM for nausea 08/12/2019 10/10/2019 Inactive ipratropium 0.5 mg-albuterol 3 mg (2.5 mg base)/3 mL n ebulization soln RxNorm: 0435609 1 Unit Dose INH Q4H 08/12/2019 09/25/2019 Inactive replaces albuterol solution Augmentin 875 mg-125 mg tablet RxNorm: 876220 1 Tablet(s) Oral two times a day 08/07/2019 08/17/2019 Inactive prednisone 20 mg tablet RxNorm: 852198 1 Tablet(s) Oral QD 08/05/2008/04/2019 Inactive prednisone 20 mg tablet RxNorm: 426637 1 Tablet(s) Oral QD 08/05/2008/06/2019 Inactive Levaquin 500 mg tablet RxNorm: 226725 1 Tablet(s) Oral QD Replaces azithromycin (z-pack) 07/31/2019 08/05/2019 Inactive Levaquin 500 mg tablet RxNorm: 013395 1 Tablet(s) Oral QD Replaces azithromycin (z-pack) 07/21/2019 07/26/2019 Inactive Levaquin 500 mg tablet RxNorm: 457989 1 Tablet(s) Oral QD Replaces azithromycin (z-pack) 07/21/2019 07/20/2019 Inactive Zithromax Z-Gui 250 mg tablet RxNorm: 714260 Tablet(s) Oral 019 07/22/2019 Inactive Zithromax Z-Gui 250 mg tablet RxNorm: 696174 Tablet(s) Oral 019 07/15/2019 Inactive Symbicort 160 mcg-4.5 mcg/actuation HFA aerosol inhaler RxNo rm: 9824454 2 Puff(s) Inhalation two times a day 07/14/2019 07/14/2019 Inactive Tessalon Perles 100 mg capsule RxNorm: 374830 1 Capsule(s) Oral Q8H as needed 07/14/2019 08/06/2019 Inactive Seroquel 50 mg tablet RxNorm: 614731 1 Tablet(s) Oral QPM as ne eded for sleep 07/01/2019 10/06/2019 Inactive ondansetron HCl 4 mg tablet RxNorm: 976762 1 Tablet(s) Oral QPM for nausea 06/24/2019 07/24/2019 Inactive Seroquel 25 mg tablet RxNorm: 247241 1 Tablet(s) Oral every nig ht at bedtime 06/19/2019 06/18/2019 Inactive Seroquel 25 mg tablet RxNorm: 008583 1 Tablet(s) Oral every nig ht at bedtime 06/19/2019 06/30/2019 Inactive trazodone 150 mg tablet RxNorm: 080849 1/2 Tablet(s) PO QHS as needed for sleep 06/11/2019 06/17/2019 Inactive replaces PA on doxep in trazodone 150 mg tablet RxNorm: 455994 1/2 Tablet(s) PO QHS as needed for sleep 05/12/2019 06/11/2019 Inactive replaces PA on doxep in Vitamin D3 5,000 unit tablet RxNorm: 982333 1 Tablet(s) PO QD 05/09 No Stop Date Active magnesium oxide 400 mg (241.3 mg magnesium) tablet RxNorm: 1 04525 1 Tablet(s) PO QHS 05/09/2019 No Stop Date Active cyanocobalamin (vit B-12) 1,000 mcg/mL injection solution Rx Norm: 936829 1 injection weekly for 4 weeks 1 Milliliter(s) Inj 05/09/2019 12/21/2019 Inactive ferrous sulfate 325 mg (65 mg iron) tablet RxNorm: 443219 1 Tab let(s) PO QD 05/09/2019 12/21/2019 Inactive ropinirole 4 mg tablet RxNorm: 421301 3 TABLET(S) BY [facility] DAILY AT BEDTIME FOR RESTLESS LEGS 03/26/2019 06/23/2019 Inactive Generic For:REQU IP 4 MG TABLET 03/26/2019 11:23:36 AM N O T I C E Last quantity doesn't match original quantity pantoprazole 40 mg tablet,delayed release RxNorm: 495495 Tablet(s) TAKE 1 TABLET BY MOUTH DAILY FOR STOMACH 03/24/2019 06/21/2019 Inactive Gener ic For:PROTONIX 40MG TAB EC 01/03/2019 1:23:44 PM hydroxyzine HCl 10 mg tablet RxNorm: 487826 1 Tablet(s) PO BID as needed 03/24/2019 04/06/2019 Inactive ipratropium-albuterol 0.5 mg-3 mg(2.5 mg base)/3 mL ne bulization soln RxNorm: 7813648 1 Unit Dose INH Q4H 03/21/2019 No Stop Date Active replaces albuterol solution meclizine 12.5 mg tablet RxNorm: 224740 1 Tablet(s) PO BID as neede d 03/21/2019 12/21/2019 Inactive losartan 100 mg tablet RxNorm: 140755 1 Tablet(s) PO QD replace s lisinopril 03/13/2019 09/08/2019 Inactive fluconazole 100 mg tablet RxNorm: 415909 1 Tablet(s) PO QD 03/13/2003/19/2019 Inactive nystatin 100,000 unit/mL oral suspension RxNorm: 294653 5 Unit( s) PO QID 03/13/2019 03/26/2019 Inactive tramadol 50 mg tablet RxNorm: 405982 1 Tablet(s) PO TID as needed for pain TAKE 2 TABS OF EXTRA STRENGTH TYLENOL WITH EACH DOSE 03/10/2019 04/06/2019 Inactive Generic For:*ULTRAM 50 MG TABLET 01/15/2019 4:55:26 PM Sinemet CR 50 mg-200 mg tablet,extended release RxNorm: 8343 41 1 Tablet(s) PO TID 02/26/2019 08/24/2019 Inactive Generic For:*SIN EMET CR 50/200 TABLET SA 07/08/2018 3:09:11 PM trazodone 150 mg tablet RxNorm: 727720 1/2 Tablet(s) PO QHS as needed for sleep 02/13/2019 02/12/2019 Inactive trazodone 150 mg tablet RxNorm: 019758 1/2 Tablet(s) PO QHS as needed for sleep 02/13/2019 02/25/2019 Inactive replaces PA on doxep in doxepin 10 mg capsule RxNorm: 6520737 1-2 Capsule(s) PO QHS prn sleep 02/13/2019 02/13/2019 Inactive Novolog U-100 Insulin aspart 100 unit/mL subcutaneous soluti on RxNorm: 290618 INJECT 10 UNIT(S) SUBCUTANEOUSLY BEFORE MEALS 01/31/2019 05/30/2019 In active 01/31/2019 1:39:10 PM ipratropium-albuterol 0.5 mg-3 mg(2.5 mg base)/3 mL ne bulization soln RxNorm: 6416034 1 Unit Dose INH Q4H 01/17/2019 03/20/2019 Inactive replaces albuterol solution tramadol 50 mg tablet RxNorm: 450459 1 Tablet(s) PO TID as needed for pain TAKE 2 TABS OF EXTRA STRENGTH TYLENOL WITH EACH DOSE 01/15/2019 02/03/2019 Inactive Generic For:*ULTRAM 50 MG TABLET 01/15/2019 4:55:26 PM Sinemet CR 50 mg-200 mg tablet,extended release RxNorm: 8343 41 1 Tablet(s) PO BID 01/03/2019 02/25/2019 Inactive Generic For:*SIN EMET CR 50/200 TABLET SA 07/08/2018 3:09:11 PM losartan 100 mg tablet RxNorm: 271682 1 Tablet(s) PO QD replace s lisinopril 01/03/2019 03/12/2019 Inactive Symbicort 160 mcg-4.5 mcg/actuation HFA aerosol inhaler RxNo rm: 5883441 2 Puff(s) INH BID 01/03/2019 01/02/2019 Inactive pantoprazole 40 mg tablet,delayed release RxNorm: 665910 TAKE 1 TABLET BY MOUTH DAILY FOR STOMACH 01/03/2019 03/23/2019 Inactive Generic For:HI OTONIX 40MG TAB EC 01/03/2019 1:23:44 PM nystatin 100,000 unit/mL oral suspension RxNorm: 447366 Unit(s) 5 Unit(s) PO QID swish and spit 01/02/2019 11/11/2019 Inactive Incruse Ellipta 62.5 mcg/actuation powder for inhalation RxN orm: 4016167 1 Capsule(s) INH QD 12/25/2018 12/21/2019 Inactive Tessalon Perles 100 mg capsule RxNorm: 813904 1 Capsule(s) PO T ID for cough 12/25/2018 02/25/2019 Inactive Medrol (Gui) 4 mg tablets in a dose pack RxNorm: 069472 Tablet(s) PO Use as directed 12/23/2018 01/02/2019 Inactive Levemir FlexTouch U-100 Insulin 100 unit/mL (3 mL) sub cutaneous pen RxNorm: 389094 20 Unit(s) SQ QD with pen needles 12/13/2018 05/11/2019 Inactiv e prednisone 20 mg tablet RxNorm: 038655 1 Tablet(s) PO QD 12/12/2018 0 12/11/2018 Inactive prednisone 20 mg tablet RxNorm: 541124 1 Tablet(s) PO QD 12/12/2018 0 12/16/2018 Inactive promethazine 6.25 mg-codeine 10 mg/5 mL syrup RxNorm: 479539 5 Milliliter(s) PO QHS as needed for cough 12/09/2018 12/18/2018 Inactive cefdinir 300 mg capsule RxNorm: 366337 1 Capsule(s) PO BID 12/10/1912/18/2018 Inactive fluconazole 100 mg tablet RxNorm: 333474 1 Tablet(s) PO QD 12/06/1912/08/2018 Inactive ropinirole 4 mg tablet RxNorm: 636204 3 Tablet(s) PO QHS for re stless legs 12/04/2018 03/03/2019 Inactive Novolog U-100 Insulin aspart 100 unit/mL subcutaneous soluti on RxNorm: 993654 INJECT 10 UNIT(S) SUBCUTANEOUSLY BEFORE MEALS 12/04/2018 01/30/2019 In active 12/04/2018 10:02:42 AM nystatin 100,000 unit/mL oral suspension RxNorm: 812632 5 Unit(s) PO QID swish and spit 11/25/2018 12/18/2018 Inactive ropinirole 4 mg tablet RxNorm: 935294 3 Tablet(s) PO QHS for re stless legs 11/04/2018 12/03/2018 Inactive prednisone 20 mg tablet RxNorm: 753003 1 Tablet(s) PO BID 10/23/2018 10/29/2018 Inactive ropinirole 4 mg tablet RxNorm: 800388 3 Tablet(s) PO QHS for re stless legs 10/14/2018 11/04/2018 Inactive pantoprazole 40 mg tablet,delayed release RxNorm: 161802 1 Tablet(s) PO QD forstomach 10/10/2018 01/02/2019 Inactive Symbicort 160 mcg-4.5 mcg/actuation HFA aerosol inhaler RxNo rm: 6986263 2 Puff(s) INH BID 10/10/2018 01/03/2019 Inactive Novolog U-100 Insulin aspart 100 unit/mL subcutaneous soluti on RxNorm: 694536 INJECT 10 UNIT(S) SUBCUTANEOUSLY BEFORE MEALS 10/10/2018 12/03/2018 In active 10/10/2018 11:30:01 AM Sinemet CR 50 mg-200 mg tablet,extended release RxNorm: 8343 41 1 Tablet(s) PO BID 09/26/2018 01/03/2019 Inactive Generic For:*SIN EMET CR 50/200 TABLET SA 07/08/2018 3:09:11 PM ropinirole 4 mg tablet RxNorm: 118338 2 Tablet(s) PO QHS for re stless legs 09/18/2018 10/13/2018 Inactive metformin ER 1,000 mg tablet,extended release 24hr RxNorm: 1 919369 1 Tablet(s) PO BID 09/09/2018 12/18/2018 Inactive ropinirole 4 mg tablet RxNorm: 424538 2 Tablet(s) PO QHS for re stless legs 08/21/2018 09/17/2018 Inactive doxycycline hyclate 100 mg capsule RxNorm: 6549323 1 Capsule(s) PO BID 08/07/2018 08/13/2018 Inactive ropinirole 4 mg tablet RxNorm: 989513 1 Tablet(s) PO QHS replac es 1mg dose 08/07/2018 08/20/2018 Inactive ropinirole 2 mg tablet RxNorm: 354659 TAKE 3 TABLETS BY MOUTH DAILY AT BEDTIME DO NOT EXCEED 3 TABLETS PER DAY!!!! 07/31/2018 08/06/2018 Inactive Generic For:REQUIP 2 MG TABLET 07/30/2018 3:50:28 PM Symbicort 160 mcg-4.5 mcg/actuation HFA aerosol inhaler RxNo rm: 7107476 2 Puff(s) INH BID 07/12/2018 10/09/2018 Inactive Sinemet CR 50 mg-200 mg tablet,extended release RxNorm: 8343 41 TAKE 1 TABLET BY MOUTH TWICE DAILY 07/08/2018 09/26/2018 Inactive Generic For:*S INEMET CR 50/200 TABLET SA 07/08/2018 3:09:11 PM losartan 100 mg tablet RxNorm: 584110 1 Tablet(s) PO QD replace s lisinopril 06/17/2018 12/13/2018 Inactive Novolog U-100 Insulin aspart 100 unit/mL subcutaneous soluti on RxNorm: 157099 10 Unit(s) SQ AC 06/17/2018 10/09/2018 Inactive albuterol sulfate 2.5 mg/3 mL (0.083 %) solution for n ebulization RxNorm: 268252 Milliliter(s) INH USE 1 VIAL IN NEBULIZE R EVERY FOUR HOURS NEEDED FOR WHEEZING OR SHORTNESS OF BREATH 06/13/2018 01/16/2019 Inactive Generic For:*PROVENTIL 0.83 MG/ML SOLUTN 06/13/2013 2:04:46 PM ropinirole 2 mg tablet RxNorm: 311459 3 Tablet(s) PO QH S DO NOT EXCEED 6MG (3 TABLETS) PER DAY!!!! 06/13/2018 07/31/2018 Inactive atorvastatin 40 mg tablet RxNorm: 881253 Tablet(s) TAKE 1 TABLET BY MOUTH EVERY DAY 05/13/2018 12/18/2018 Inactive Generic For:LIPI TOR 40MG TAB 05/01/2018 8:37:31 AM Sinemet CR 50 mg-200 mg tablet,extended release RxNorm: 8343 41 1 Tablet(s) PO BID 05/08/2018 07/06/2018 Inactive Lidocaine Viscous 2 % mucosal solution RxNorm: 8454269 5 Milliliter(s) PO QID as needed 05/02/2018 08/06/2018 Inactive Diflucan 100 mg tablet RxNorm: 718096 1 Tablet(s) PO QD 05/02/2018 Inactive atorvastatin 40 mg tablet RxNorm: 481864 TAKE 1 TABLET BY MOUTH EVERY DAY 05/01/2018 05/13/2018 Inactive Generic For:LIPITOR 40MG TAB 05/01/2018 8:37:31 AM nystatin 100,000 unit/mL oral suspension RxNorm: 712760 5 Unit(s) PO QID (before meals and at bedtime) 04/24/2018 04/30/2018 Inactive Ventolin HFA 90 mcg/actuation aerosol inhaler RxNorm: 670180 2 Puff(s) INH Q4H as needed one inhaler for home and one inhaler for car 04/23/201812/18 Inactive Mucinex 600 mg tablet, extended release RxNorm: 383074 1 Tablet(s) PO BID for congestion 04/22/2018 05/21/2018 Inactive prednisone 10 mg tablet RxNorm: 280219 Tablet(s) PO as directeds 08/06/2018 Inactive ropinirole 2 mg tablet RxNorm: 788236 3 Tablet(s) PO QH S DO NOT EXCEED 6MG (3 TABLETS) PER DAY!!!! 04/09/2018 05/08/2018 Inactive gabapentin 300 mg capsule RxNorm: 692571 1-2 Capsule(s) PO QHS 02/201804/08/2018 Inactive ropinirole 2 mg tablet RxNorm: 349437 1 Tablet(s) PO QHS 03/28/2018 0 04/08/2018 Inactive gabapentin 300 mg capsule RxNorm: 084442 1-2 Capsule(s) PO QHS 02/2303/29/2018 Inactive gabapentin 300 mg capsule RxNorm: 355593 1-2 Capsule(s) PO QHS 02/2203/13/2018 Inactive gabapentin 300 mg capsule RxNorm: 609148 2 Capsule(s) PO QHS 201703/11/2018 Inactive ropinirole 2 mg tablet RxNorm: 594985 1 Tablet(s) PO QHS 02/28/2018 0 03/28/2018 Inactive ropinirole 2 mg tablet RxNorm: 270961 1 Tablet(s) PO QHS 02/28/2018 0 02/27/2018 Inactive gabapentin 300 mg capsule RxNorm: 717775 1 Capsule(s) PO QHS 201702/27/2018 Inactive pantoprazole 40 mg tablet,delayed release RxNorm: 604973 1 Tablet(s) PO QD [facility] 01/23/2018 05/22/2018 Inactive Voltaren 1 % topical gel RxNorm: 009689 1 Gram(s) TOP QID to ri ght knee 01/23/2018 02/04/2018 Inactive metformin ER 500 mg tablet,extended release 24hr RxNorm: 860 975 2 Tablet(s) PO BID 01/09/2018 12/08/2018 Inactive Requip 1 mg tablet RxNorm: 854956 1 Tablet(s) PO QHS 01/09/201802/27 Inactive prednisone 20 mg tablet RxNorm: 196556 1 Tablet(s) PO T ID for 3 days then 1 po BID for 3 days then one daily for 3 days 01/02/2018 02/03/2018 Inactiv e Levaquin 500 mg tablet RxNorm: 177993 1 Tablet(s) PO QD 01/02/2018 Inactive ProAir HFA 90 mcg/actuation aerosol inhaler RxNorm: 227946 2 Puff(s) INH Q4H as needed 12/28/2017 No Stop Date Active please switch to ventolin if insurance doesn't cover montelukast 10 mg tablet RxNorm: 602063 1 Tablet(s) PO QD 12/28/2017 02/03/2018 Inactive Levaquin 500 mg tablet RxNorm: 610113 1 Tablet(s) PO QD 12/21/2017 Inactive ProAir HFA 90 mcg/actuation aerosol inhaler RxNorm: 743795 2 Puff(s) INH Q4H as needed 12/21/2017 12/27/2017 Inactive please switch to ventolin if insurance doesn't cover doxycycline hyclate 100 mg tablet RxNorm: 359229 1 Tablet(s) PO BID 12/17/2017 12/26/2017 Inactive Levemir FlexTouch U-100 Insulin 100 unit/mL (3 mL) sub cutaneous pen RxNorm: 267042 20 Unit(s) SQ QD with pen needles---Due for labs 12/11/2017 02/03/2018 Inactive Requip 1 mg tablet RxNorm: 648212 1 Tablet(s) PO QHS 12/10/201712/09 Inactive Requip 1 mg tablet RxNorm: 435577 1 Tablet(s) PO QHS 12/10/201701/09 Inactive albuterol sulfate 2.5 mg/3 mL (0.083 %) solution for n ebulization RxNorm: 595759 Milliliter(s) INH USE 1 VIAL IN NEBULIZE R EVERY FOUR HOURS NEEDED FOR WHEEZING OR SHORTNESS OF BREATH 12/05/2017 06/13/2018 Inactive Generic For:*PROVENTIL 0.83 MG/ML SOLUTN 06/13/2013 2:04:46 PM Tudorza Pressair 400 mcg/actuation breath activated RxNorm: 5494540 1 Puff(s) INH BID 12/03/2017 12/10/2017 Inactive Levemir FlexTouch U-100 Insulin 100 unit/mL (3 mL) sub cutaneous pen RxNorm: 848901 10 Unit(s) SQ QD with pen needles---Due for labs 11/16/2017 12/10/2017 Inactive Zofran ODT 4 mg disintegrating tablet RxNorm: 904696 1 Tablet(s) PO Q4H as needed for nausea 10/17/2017 02/04/2018 Inactive Efudex 5 % topical cream RxNorm: 853327 Application TOP QD prn to precancer skin lesions 10/17/2017 02/03/2018 Inactive Sinemet CR 50 mg-200 mg tablet,extended release RxNorm: 8343 41 1 Tablet(s) PO BID 10/17/2017 02/05/2018 Inactive Sinemet CR 50 mg-200 mg tablet,extended release RxNorm: 8343 41 1 Tablet(s) PO QHS 09/25/2017 10/16/2017 Inactive gabapentin 600 mg tablet RxNorm: 864589 1 Tablet(s) PO BID 08/15/20 17 08/14/2017 Inactive gabapentin 600 mg tablet RxNorm: 349696 1 Tablet(s) PO BID 08/15/20 17 12/10/2017 Inactive Novolog U-100 Insulin aspart 100 unit/mL subcutaneous soluti on RxNorm: 111311 10 Unit(s) SQ AC 08/15/2017 02/03/2018 Inactive Novolog 100 unit/mL subcutaneous solution RxNorm: 868402 10 Uni t(s) SQ AC 08/13/2017 08/14/2017 Inactive prednisone 20 mg tablet RxNorm: 483195 2 Tablet(s) PO QD 08/02/201710/04/2016 Inactive gabapentin 600 mg tablet RxNorm: 386427 Tablet(s) 1 Tab let(s) PO QHS replaces 300mg dose 07/09/2017 08/14/2017 Inactive Breo Ellipta 100 mcg-25 mcg/dose powder for inhalation RxNor m: 8865480 1 Unit Dose INH QD 07/02/2017 08/30/2017 Inactive Tudorza Pressair 400 mcg/actuation breath activated RxNorm: 8968949 1 Puff(s) INH BID 06/18/2017 12/02/2017 Inactive gabapentin 600 mg tablet RxNorm: 907568 1 Tablet(s) PO QHS repl aces 300mg dose 06/14/2017 07/08/2017 Inactive metformin ER 1,000 mg tablet,extended release 24hr RxNorm: 1 878013 1 Tablet(s) PO BID 05/29/2017 01/08/2018 Inactive cyclobenzaprine 5 mg tablet RxNorm: 967944 1 Tablet(s) PO TID 05/2906/07/2017 Inactive metformin ER 1,000 mg tablet,extended release 24hr RxNorm: 8 97942 1 Tablet(s) PO BID 05/25/2017 05/28/2017 Inactive metformin ER 1,000 mg tablet,extended release 24hr RxNorm: 8 22818 1 Tablet(s) PO BID 05/22/2017 05/24/2017 Inactive Amaryl 2 mg tablet RxNorm: 293209 1 Tablet(s) PO BID 05/01/201702/03 Inactive glimepiride 2 mg tablet RxNorm: 324969 1 Tablet(s) PO BID 04/19/2017 02/03/2018 Inactive ferrous sulfate 325 mg (65 mg iron) tablet RxNorm: 426272 1 Tab let(s) PO QHS 04/17/2017 02/03/2018 Inactive Requip 4 mg tablet RxNorm: 910827 1 Tablet(s) PO BID 04/12/201704/11 Inactive Requip 4 mg tablet RxNorm: 330931 1 Tablet(s) PO BID 04/12/201704/15 Inactive Levemir FlexTouch 100 unit/mL (3 mL) subcutaneous insulin pe n RxNorm: 902617 10 Unit(s) SQ QD with pen needles---Due for labs 04/05/2017 11/15/2017 In active Silenor 3 mg tablet RxNorm: 114709 1 Tablet(s) PO QHS 04/05/201709/25 Inactive ropinirole 4 mg tablet RxNorm: 212019 1 Tablet(s) PO QHS 03/29/2017 0 04/01/2017 Inactive ropinirole 4 mg tablet RxNorm: 153378 1 Tablet(s) PO QHS 03/29/2017 0 03/28/2017 Inactive Requip 4 mg tablet RxNorm: 908318 1 Tablet(s) PO QHS 03/28/201704/01 Inactive gabapentin 600 mg tablet RxNorm: 791225 1 Tablet(s) PO QHS repl aces 300mg dose 03/28/2017 04/15/2017 Inactive Requip 4 mg tablet RxNorm: 652695 1 Tablet(s) PO QHS 03/23/201703/27 Inactive gabapentin 600 mg tablet RxNorm: 479478 1 Tablet(s) PO QHS 03/13/20 17 03/12/2017 Inactive gabapentin 600 mg tablet RxNorm: 849094 1 Tablet(s) PO QHS 03/13/20 17 03/27/2017 Inactive gabapentin 300 mg capsule RxNorm: 192067 1 Capsule(s) PO QPM 201603/12/2017 Inactive Generic For:NEURONTIN 300 MG CAPSULE 01/22/2017 10:10:39 AM losartan 100 mg tablet RxNorm: 298925 1 Tablet(s) PO QD replace s lisinopril 02/21/2017 06/17/2018 Inactive gabapentin 300 mg capsule RxNorm: 654691 TAKE 1 CAPSULE BY MOUT H EVERY EVENING 01/22/2017 02/21/2017 Inactive Generic For:NEURONTI N 300 MG CAPSULE 01/22/2017 10:10:39 AM gabapentin 300 mg capsule RxNorm: 488622 1 Capsule(s) PO QPM 201601/21/2017 Inactive Requip 4 mg tablet RxNorm: 524017 1 Tablet(s) PO QHS 12/21/201603/20 Inactive Effient 10 mg tablet RxNorm: 468387 1 Tablet(s) PO QD 12/12/201612/23 Inactive gabapentin 300 mg capsule RxNorm: 410841 1 Capsule(s) PO QPM 201612/03/2016 Inactive gabapentin 300 mg capsule RxNorm: 845090 1 Capsule(s) PO QPM 201612/13/2016 Inactive Requip 4 mg tablet RxNorm: 098297 1 Tablet(s) PO QHS 11/28/201612/21 Inactive atorvastatin 40 mg tablet RxNorm: 369513 Tablet(s) 1 Tablet(s) PO Q D 11/22/2016 08/18/2017 Inactive atorvastatin 40 mg tablet RxNorm: 444804 1 Tablet(s) PO QD 11/23/19 17 11/21/2016 Inactive ropinirole 1 mg tablet RxNorm: 853947 2.5 Tablet(s) PO QPM for legs/sleep 11/14/2016 11/27/2016 Inactive nystatin 100,000 unit/mL oral suspension RxNorm: 878077 5 Unit(s) PO QID swish and spit 10/31/2016 02/03/2018 Inactive fluconazole 100 mg tablet RxNorm: 349033 1 Tablet(s) PO QD 10/31/19 17 11/09/2016 Inactive doxycycline hyclate 100 mg capsule RxNorm: 3411811 1 Capsule(s) PO BID 10/03/2016 10/12/2016 Inactive Levemir FlexTouch 100 unit/mL (3 mL) subcutaneous insulin pe n RxNorm: 269110 10 Unit(s) SQ QD with pen needles 09/18/2016 04/04/2017 Inactive amitriptyline 25 mg tablet RxNorm: 894668 1 Tablet(s) P O QHS as needed for sleep 09/04/2016 10/17/2016 Inactive ropinirole 1 mg tablet RxNorm: 269597 1.5 Tablet(s) PO QPM for legs/sleep 09/04/2016 11/13/2016 Inactive amitriptyline 25 mg tablet RxNorm: 786460 1 Tablet(s) P O QHS as needed for sleep 08/22/2016 09/03/2016 Inactive clopidogrel 75 mg tablet RxNorm: 622297 1 Tablet(s) PO QD 08/10/2016 10/17/2016 Inactive Zoloft 100 mg tablet RxNorm: 196147 2 Tablet(s) PO QHS 08/10/2016 Inactive atorvastatin 40 mg tablet RxNorm: 836079 1 Tablet(s) PO QD 08/10/2010/17/2016 Inactive ropinirole 1 mg tablet RxNorm: 412628 1 Tablet(s) PO QPM for le gs/sleep 08/10/2016 09/03/2016 Inactive losartan 100 mg tablet RxNorm: 712435 1 Tablet(s) PO QD replace s lisinopril 07/20/2016 02/21/2017 Inactive Zofran 4 mg tablet RxNorm: 566661 1 Tablet(s) PO Q4H as needed for nausea 07/06/2016 10/17/2016 Inactive Flagyl 500 mg tablet RxNorm: 877211 1 Tablet(s) PO TID 07/06/2016 Inactive Plavix 75 mg tablet RxNorm: 499102 1 Tablet(s) PO QD 06/08/201607/05 Inactive isosorbide mononitrate ER 30 mg tablet,extended release 24 h r RxNorm: 230589 1 Tablet(s) PO QAM 06/08/2016 08/09/2016 Inactive atorvastatin 40 mg tablet RxNorm: 019898 1 Tablet(s) PO QD 06/08/20 16 08/09/2016 Inactive hydrochlorothiazide 12.5 mg tablet RxNorm: 109818 1 Tablet(s) PO QA M 06/08/2016 07/05/2016 Inactive metformin ER 1,000 mg tablet,extended release 24hr RxNorm: 8 45958 1 Tablet(s) PO BID 06/08/2016 09/05/2016 Inactive metoprolol tartrate 25 mg tablet RxNorm: 032553 1/2 Tablet(s) PO BI D 06/08/2016 08/09/2016 Inactive Zoloft 100 mg tablet RxNorm: 242560 2 Tablet(s) PO QHS 04/03/2016 Inactive metformin ER 1,000 mg tablet,extended release 24hr RxNorm: 8 36573 Tablet(s) 1 Tablet(s) PO QD 03/30/2016 12/18/2018 Inactive Levemir FlexTouch 100 unit/mL (3 mL) subcutaneous insulin pe n RxNorm: 202449 10 Unit(s) SQ QD 03/09/2016 03/08/2016 Inactive Levemir FlexTouch 100 unit/mL (3 mL) subcutaneous insulin pe n RxNorm: 772562 10 Unit(s) SQ QD with pen needles 03/09/2016 03/20/2016 Inactive Mobic 15 mg tablet RxNorm: 229294 1 Tablet(s) PO QD for foot pain 0 02/17/2016 03/17/2016 Inactive Zoloft 100 mg tablet RxNorm: 216651 1 1/2 Tablet(s) PO QHS 01/31/20 16 04/02/2016 Inactive omeprazole 20 mg capsule,delayed release RxNorm: 990812 TAKE 2 CAPSULES BY MOUTH EVERY DAY 01/12/2016 08/09/2016 Inactive Generic For:*CHERYL LOSEC [address] 01/12/2016 8:58:34 AM Zoloft 100 mg tablet RxNorm: 682746 1/2 Tablet(s) PO QH S for 1 week then 1 tablet po q HS 12/30/2015 01/27/2016 Inactive Ventolin HFA 90 mcg/actuation aerosol inhaler RxNorm: 674771 2 Puff(s) INH QID as needed for shortness of breath 12/30/2015 02/03/2018 Inactive [AttnRPh: Saving apply/adjudicate RxGRP:SG20 RxBIN:[id number] RxPCN: ID#:[id number]] metformin ER 1,000 mg tablet,extended release 24hr RxNorm: 8 88242 1 Tablet(s) PO QD 12/20/2015 03/18/2016 Inactive clindamycin 300 mg capsule RxNorm: 303849 1 Capsule(s) PO TID 12/0512/15/2015 Inactive mupirocin 2 % topical cream RxNorm: 275847 TOP to facial lesion s twice daily 11/15/2015 12/15/2015 Inactive cefdinir 300 mg capsule RxNorm: 438966 1 Capsule(s) PO BID 11/15/19 16 11/24/2015 Inactive Medrol (Gui) 4 mg tablets in a dose pack RxNorm: 237573 Tablet(s) PO as directed 10/11/2015 12/15/2015 Inactive albuterol sulfate 2.5 mg/3 mL (0.083 %) solution for n ebulization RxNorm: 387725 INH USE 1 VIAL IN NEBULIZER EVERY FOUR H OURS NEEDED FOR WHEEZING OR SHORTNESS OF BREATH 10/05/2015 10/04/2015 Inactive Generic For:*PRO VENTIL 0.83 MG/ML SOLUTN 06/13/2013 2:04:46 PM doxycycline hyclate 100 mg capsule RxNorm: 9471479 1 Capsule(s) PO BID 10/05/2015 10/14/2015 Inactive albuterol sulfate 2.5 mg/3 mL (0.083 %) solution for n ebulization RxNorm: 512793 Milliliter(s) INH USE 1 VIAL IN NEBULIZE R EVERY FOUR HOURS NEEDED FOR WHEEZING OR SHORTNESS OF BREATH Dx: J44.9 10/05/2015 12/05/2017 Inacti ve Generic For:*PROVENTIL 0.83 MG/ML SOLUTN 06/13/2013 2:04:46 PM albuterol sulfate 2.5 mg/3 mL (0.083 %) solution for n ebulization RxNorm: 365833 3 Milliliter(s) INH USE 1 VIAL IN NEBULI ZER EVERY FOUR HOURS NEEDED FOR WHEEZING OR SHORTNESS OF BREATH 09/06/2015 10/04/2015 Inactive Generic For:*PROVENTIL 0.83 MG/ML SOLUTN 06/13/2013 2:04:46 PM Tradjenta 5 mg tablet RxNorm: 3029466 2 Tablet(s) PO QD 07/22/2015 Inactive albuterol sulfate 2.5 mg/3 mL (0.083 %) solution for n ebulization RxNorm: 769622 3 Milliliter(s) INH USE 1 VIAL IN NEBULI ZER EVERY FOUR HOURS NEEDED FOR WHEEZING OR SHORTNESS OF BREATH 06/29/2015 09/05/2015 Inactive Generic For:*PROVENTIL 0.83 MG/ML SOLUTN 06/13/2013 2:04:46 PM albuterol sulfate 2.5 mg/3 mL (0.083 %) solution for n ebulization RxNorm: 988889 Milliliter(s) INH USE 1 VIAL IN NEBULIZE R EVERY FOUR HOURS NEEDED FOR WHEEZING OR SHORTNESS OF BREATH 06/29/2015 12/04/2017 Inactive Generic For:*PROVENTIL 0.83 MG/ML SOLUTN 06/13/2013 2:04:46 PM doxycycline hyclate 100 mg tablet RxNorm: 084923 1 Tablet(s) PO BID 06/28/2015 07/07/2015 Inactive losartan 100 mg tablet RxNorm: 975118 1 Tablet(s) PO QD -replac es lisinopril 06/14/2015 09/05/2015 Inactive metformin ER 1,000 mg tablet,extended release 24hr RxNorm: 8 68002 1 Tablet(s) PO QD 06/14/2015 09/11/2015 Inactive losartan 100 mg tablet RxNorm: 016186 1 Tablet(s) PO QD -replac es lisinopril 06/14/2015 12/10/2015 Inactive Zocor 20 mg tablet RxNorm: 334425 Tablet(s) Tablet(s) 1 Tablet(s) PO QD -needs lipids labs 06/14/2015 06/14/2015 Inactive atorvastatin 40 mg tablet RxNorm: 387200 1 Tablet(s) PO QD repl aces simvastatin 06/14/2015 12/10/2015 Inactive loratadine 10 mg tablet RxNorm: 823748 Tablet(s) 1 Tablet(s) PO QD for drainage 06/14/2015 06/07/2016 Inactive Celexa 40 mg tablet RxNorm: 234369 1 Tablet(s) PO QD TA KE ONE (1) TABLET BY MOUTH DAILY 06/14/2015 12/29/2015 Inactive Generic For:HARJINDER XA 40 MG TABLET clindamycin 300 mg capsule RxNorm: 786065 2 Capsule(s) PO BID 06/0306/12/2015 Inactive metformin ER 1,000 mg tablet,extended release 24hr RxNorm: 8 66134 1 Tablet(s) PO QD 06/03/2015 06/02/2015 Inactive metformin ER 1,000 mg tablet,extended release 24hr RxNorm: 8 98088 1 Tablet(s) PO QD 06/03/2015 06/13/2015 Inactive mupirocin 2 % topical ointment RxNorm: 536980 TOP apply to open lesion of knee twice daily 06/03/2015 01/30/2016 Inactive Zocor 20 mg tablet RxNorm: 494453 Tablet(s) 1 Tablet(s ) PO QD -needs lipids labs 05/13/2015 06/13/2015 Inactive Celexa 40 mg tablet RxNorm: 687388 1 Tablet(s) PO QD TA KE ONE (1) TABLET BY MOUTH DAILY 05/13/2015 06/13/2015 Inactive Generic For:HARJINDER XA 40 MG TABLET Zocor 20 mg tablet RxNorm: 774328 Tablet(s) 1 Tablet(s ) PO QD -needs lipids labs 02/23/2015 03/24/2015 Inactive loratadine 10 mg tablet RxNorm: 481569 1 Tablet(s) PO QD for dr saenz 12/24/2014 06/13/2015 Inactive Zocor 20 mg tablet RxNorm: 890818 1 Tablet(s) PO QD -needs lipi ds labs 11/17/2014 02/23/2015 Inactive Celexa 40 mg tablet RxNorm: 365981 1 Tablet(s) PO QD 1 Tablet(s) PO QD 1 Tablet(s) PO QD Generic OKAY 11/11/2014 05/13/2015 Inactive Zocor 20 mg tablet RxNorm: 286245 1 Tablet(s) PO QD -needs lipi ds labs 11/11/2014 11/16/2014 Inactive omeprazole 20 mg capsule,delayed release RxNorm: 194132 2 Capsule(s) PO QD TAKE 2 CAPSULES BY MOUTH DAILY 10/27/2014 04/24/2015 Inactive Shena harp For:*PRILOSEC 20 MG CAPSULE trazodone 50 mg tablet RxNorm: 361976 1 1/2 Tablet(s) PO QHS 201412/29/2015 Inactive losartan 100 mg tablet RxNorm: 833181 1 Tablet(s) PO QD -replac es lisinopril 10/26/2014 04/23/2015 Inactive Levaquin 500 mg tablet RxNorm: 465371 1 Tablet(s) PO QD 10/08/2014 Inactive Levaquin 500 mg tablet RxNorm: 328618 1 Tablet(s) PO QD 10/08/2014 Inactive Diflucan 100 mg tablet RxNorm: 370286 1 Tablet(s) PO QD 10/06/2014 Inactive DuoNeb 0.5 mg-3 mg(2.5 mg base)/3 mL solution for nebulizati on RxNorm: 3158984 3 Milliliter(s) INH QID 09/23/2014 08/09/2016 Inactive Ventolin HFA 90 mcg/actuation aerosol inhaler RxNorm: 845288 2 Puff(s) INH QID as needed for shortness of breath 09/21/2014 12/29/2015 Inactive [AttnRPh: Saving apply/adjudicate RxGRP:SG20 RxBIN:[id number] RxPCN: ID#:[id number]] promethazine-codeine 6.25 mg-10 mg/5 mL syrup RxNorm: 854649 1 Teaspoon(s) PO QHS as needed for cough 09/08/2014 09/20/2014 Inactive prednisone 20 mg tablet RxNorm: 241307 1 Tablet(s) PO BID 09/02/2014 09/08/2014 Inactive promethazine-codeine 6.25 mg-10 mg/5 mL syrup RxNorm: 974540 1 Teaspoon(s) PO Q4H 09/02/2014 09/20/2014 Inactive doxycycline monohydrate 100 mg capsule RxNorm: 029091 1 Capsule (s) PO BID 09/02/2014 09/07/2014 Inactive Tessalon Perles 100 mg capsule RxNorm: 688554 1 Capsule (s) PO TID as needed for cough 08/31/2014 09/20/2014 Inactive Actos 15 mg tablet RxNorm: 207687 1 Tablet(s) PO QAM 1 Tablet(s ) PO QAM 08/26/2014 09/20/2014 Inactive loratadine 10 mg tablet RxNorm: 703827 1 Tablet(s) PO QD for dr saenz 08/26/2014 10/26/2014 Inactive Zithromax 500 mg tablet RxNorm: 137514 1 Tablet(s) PO QD 08/25/2014 1 11/01/2013 Inactive Zithromax 500 mg tablet RxNorm: 644010 1 Tablet(s) PO QD 08/25/2014 1 10/25/2013 Inactive Trazadone 75mg Tablet RxNorm: 1 Tablet(s) PO QHS 08/10/20142018 Inactive Zocor 20 mg tablet RxNorm: 272119 1 Tablet(s) PO QD 08/10/20142014 Inactive Trazadone 75mg Tablet RxNorm: 1 Tablet(s) PO QHS as need ed for sleep 08/10/2014 10/08/2014 Inactive Celexa 40 mg tablet RxNorm: 988653 1 Tablet(s) PO QD 1 Tablet(s) PO QD 1 Tablet(s) PO QD Generic OKAY 06/09/2014 10/06/2014 Inactive Actos 15 mg tablet RxNorm: 389428 1 Tablet(s) PO QAM 05/12/201408/26 Inactive lisinopril 20 mg tablet RxNorm: 161549 1 Tablet(s) PO QD 05/12/2014 0 10/26/2014 Inactive TAKE ONE TABLET BY MOUTH EVERY DAY;Gener ic For:*PRINIVIL 20 MG TABLET [AttnRPh: Saving apply/adjudicate RxGRP:SG20 RxBIN:[id number] RxPCN: ID#:[id number]] hydrocodone 5 mg-acetaminophen 325 mg tablet RxNorm: 013083 1 Tablet(s) PO TID as needed for pain for severe pain 04/30/2014 08/09/2014 Inactive hydrocodone 5 mg-acetaminophen 325 mg tablet RxNorm: 578814 1 Tablet(s) PO TID as needed for pain for severe pain 04/17/2014 04/29/2014 Inactive doxycycline hyclate 100 mg capsule RxNorm: 398807 1 Capsule(s) PO BID 03/05/2014 03/04/2014 Inactive doxycycline hyclate 100 mg capsule RxNorm: 026081 1 Capsule(s) PO BID 03/05/2014 03/14/2014 Inactive albuterol sulfate 2.5 mg/3 mL (0.083 %) solution for n ebulization RxNorm: 116640 Milliliter(s) INH USE 1 VIAL IN NEBULIZE R EVERY FOUR HOURS NEEDED FOR WHEEZING OR SHORTNESS OF BREATH 03/02/2014 06/29/2015 Inactive Generic For:*PROVENTIL 0.83 MG/ML SOLUTN 06/13/2013 2:04:46 PM Celexa 40 mg tablet RxNorm: 479777 1 Tablet(s) PO QD 1 Tablet(s) PO QD replaces lexapro. Generic OKAY 01/13/2014 06/09/2014 Inactive Actos 15 mg tablet RxNorm: 828126 1 Tablet(s) PO QAM 01/07/201405/12 Inactive lisinopril 20 mg tablet RxNorm: 996435 1 Tablet(s) PO QD 12/08/2013 0 05/12/2014 Inactive TAKE ONE TABLET BY MOUTH EVERY DAY;Gener ic For:*PRINIVIL 20 MG TABLET cefdinir 300 mg capsule RxNorm: 327856 2 Capsule(s) PO QD 11/10/2013 08/09/2014 Inactive cefdinir 300 mg capsule RxNorm: 320874 2 Capsule(s) PO QD 10/09/2013 10/15/2013 Inactive Actos 15 mg tablet RxNorm: 212387 1 Tablet(s) PO QAM 10/09/201301/06 Inactive doxycycline hyclate 100 mg capsule RxNorm: 3941091 1 Capsule(s) PO Q12H 09/18/2013 09/27/2013 Inactive omeprazole 20 mg capsule,delayed release RxNorm: 222608 2 Capsule(s) PO QD TAKE 2 CAPSULES BY MOUTH DAILY 09/03/2013 03/01/2014 Inactive Generi c For:*PRILOSEC [address] Celexa 40 mg tablet RxNorm: 081036 1 Tablet(s) PO QD re places lexapro. Generic OKAY 09/03/2013 01/13/2014 Inactive Symbicort 160 mcg-4.5 mcg/actuation HFA aerosol inhaler RxNo rm: 6357699 2 Puff(s) INH BID 08/13/2013 03/23/2014 Inactive metformin 1,000 mg tablet RxNorm: 718662 1 Tablet(s) PO BID 013 08/12/2013 Inactive TAKE ONE TABLET BY MOUTH TWI CE DAILY;Generic For:GLUCOPHAGE 1,000 MG TABLET 08/27/12 Thank you Actos 15 mg tablet RxNorm: 185022 1 Tablet(s) PO QAM 06/23/201310/09 Inactive lisinopril 20 mg tablet RxNorm: 834588 1 Tablet(s) PO QD 06/23/2013 0 12/08/2013 Inactive TAKE ONE TABLET BY MOUTH EVERY DAY;Gener ic For:*PRINIVIL 20 MG TABLET albuterol sulfate 2.5 mg/3 mL (0.083 %) solution for n ebulization RxNorm: 701078 Solution for Nebulization INH USE 1 VIAL IN NEBULIZER EVERY FOUR HOURS NEEDED FOR WHEEZING OR SHORTNESS OF BREATH 06/16/2013 03/01/2014 Inactive Generic For:*PROVENTIL 0.83 MG/ML SOLUTN 06/13/2013 2:04:46 PM prednisone 10 mg tablet RxNorm: 146110 1 Tablet(s) PO BID 04/09/2013 04/13/2013 Inactive AndroGel 1.25 gram/actuation (1%) Transdermal Gel Pump RxNorm: 2 81843 TD 04/09/2013 08/09/2014 Inactive APPLY 4 PUMPS OF GEL AT BEDTIME DIRECTED;WC (Appended: Controlled substance eRx refill - RxReferenceNumber: [id number]) azithromycin 250 mg tablet RxNorm: 549748 2 Tablet(s) PO QD 013 04/16/2013 Inactive Amaryl 2 mg tablet RxNorm: 020556 1 Tablet(s) PO BID N eeds appt in 1 month (around March 21) 02/18/2013 08/12/2013 Inactive Amaryl 2 mg tablet RxNorm: 635469 1 Tablet(s) PO BID 02/18/201302/17 Inactive metformin 1,000 mg tablet RxNorm: 835885 1 Tablet(s) PO BID 013 07/27/2013 Inactive TAKE ONE TABLET BY MOUTH TWI CE DAILY;Generic For:GLUCOPHAGE 1,000 MG TABLET 08/27/12 Thank you Actos 15 mg tablet RxNorm: 066469 1 Tablet(s) PO QAM 02/04/201306/03 Inactive albuterol sulfate 2.5 mg/3 mL (0.083 %) Neb Solution RxNorm: 480951 1 Unit Dose INH Q4H prn wheezing or shortness of breath 01/30/2013 06/15/2013 Inac tive Medrol (Gui) 4 mg tablets in a dose pack RxNorm: 219504 Tablet(s) PO as directed 01/20/2013 07/15/2013 Inactive cefdinir 300 mg capsule RxNorm: 571178 1 Capsule(s) PO BID anti biotic 01/20/2013 01/29/2013 Inactive lisinopril 20 mg tablet RxNorm: 001102 Tablet(s) PO 01/13/20132012 Inactive TAKE ONE TABLET BY MOUTH EVERY DAY;Gener ic For:*PRINIVIL 20 MG TABLET citalopram 40 mg tablet RxNorm: 196035 Tablet(s) PO 01/13/20132013 Inactive TAKE ONE (1) TABLET BY MOUTH DAILY;Gener ic For:CELEXA 40 MG TABLET omeprazole 20 mg capsule,delayed release RxNorm: 360466 Capsule(s) PO TAKE 2 CAPSULES BY MOUTH DAILY 11/15/2012 09/03/2013 Inactive Generic For:*PRILOSEC [address] amoxicillin 875 mg tablet RxNorm: 760630 1 Tablet(s) PO BID 013 10/28/2012 Inactive Actos 30 mg tablet RxNorm: 765107 1 Tablet(s) PO QD 09/23/20122011 Inactive Actos 15 mg tablet RxNorm: 755697 1 Tablet(s) PO QAM 09/23/201209/22 Inactive Actos 15 mg tablet RxNorm: 247848 1 Tablet(s) PO QAM 09/23/201202/04 Inactive prednisone 20 mg tablet RxNorm: 844128 1 Tablet(s) PO BID 08/28/2012 09/03/2012 Inactive doxycycline hyclate 100 mg tablet RxNorm: 9303193 1 Tablet(s) PO BI D 08/28/2012 09/06/2012 Inactive metformin 1,000 mg tablet RxNorm: 444269 Tablet(s) PO 08/27/201201/22 Inactive TAKE ONE TABLET BY MOUTH TWICE DAILY;Gen joshua For:GLUCOPHAGE 1,000 MG TABLET 08/27/12 Thank you citalopram 40 mg tablet RxNorm: 934633 Tablet(s) PO 07/30/20122012 Inactive TAKE ONE (1) TABLET BY MOUTH DAILY;Gener ic For:CELEXA 40 MG TABLET lisinopril 20 mg tablet RxNorm: 561353 Tablet(s) PO 07/30/20122012 Inactive TAKE ONE TABLET BY MOUTH EVERY DAY;Gener ic For:*PRINIVIL 20 MG TABLET AndroGel 1.25 gram/actuation (1%) Transdermal Gel Pump RxNor m: [id number] Gel in Metered-Dose Pump TD 07/09/2012 04/08/2013 Inactive APPLY 4 PUM PS OF GEL AT BEDTIME DIRECTED;WC (Appended: Controlled substance eRx refill - RxReferenceNumber: [id number]) citalopram 40 mg tablet RxNorm: 611748 Tablet(s) PO 07/01/20122011 Inactive TAKE ONE (1) TABLET BY MOUTH DAILY;Gener ic For:CELEXA 40 MG TABLET metformin 1,000 mg tablet RxNorm: 657309 1 Tablet(s) PO BID 012 08/25/2012 Inactive TAKE 1 TABLET BY MOUTH TWICE DAILY;Generic For:GLUCOPHAGE 1,000 MG TABLET meclizine 25 mg Tab RxNorm: 444258 1 Tablet(s) PO QID prn dizziness 05/09/2012 05/18/2012 Inactive lisinopril 20 mg tablet RxNorm: 648061 Tablet(s) PO QD 04/22/2012 Inactive TAKE ONE (1) TABLET BY MOUTH DAILY;Gener ic For:*PRINIVIL 20 MG TABLET metformin 1,000 mg tablet RxNorm: 502173 Tablet(s) PO 03/19/201212/2011 Inactive TAKE 1 TABLET BY MOUTH TWICE DAILY;Gener ic For:GLUCOPHAGE 1,000 MG TABLET cefdinir 300 mg Cap RxNorm: 482811 1 Capsule(s) PO BID 11/28/2011 Inactive cefdinir 300 mg Cap RxNorm: 982847 1 Capsule(s) PO BID 11/01/2011 Inactive citalopram 40 mg tablet RxNorm: 734804 Tablet(s) PO 10/30/20112011 Inactive TAKE ONE (1) TABLET BY MOUTH DAILY;Gener ic For:CELEXA 40 MG TABLET cefdinir 300 mg Cap RxNorm: 759669 1 Capsule(s) PO BID 10/02/2011 Inactive metformin 1,000 mg Tab RxNorm: 118302 1 Tablet(s) PO BID 09/28/2011 0 01/25/2012 Inactive citalopram 40 mg Tab RxNorm: 356811 1 Tablet(s) PO QD 09/28/201111/2011 Inactive omeprazole 20 mg capsule,delayed release RxNorm: 236421 2 Capsu le(s) PO QD 09/28/2011 03/25/2012 Inactive lisinopril 20 mg Tab RxNorm: 528202 Tablet(s) PO 08/21/2011 04/21/2012 Inactive TAKE ONE (1) TABLET BY MOUTH DAILY;Generic For:*PRINIVIL 20 MG TABLET AndroGel 1.25 gram/actuation (1%) Transdermal Gel Pump RxNor m: 7559150 Gel in Metered-dose Pump TD 08/21/2011 07/09/2012 Inactive APPLY 4 PUM PS OF GEL AT BEDTIME DIRECTED (Appended: Controlled substance eRx refill - RxReferenceNumber: [id number]) Lantus Solostar 100 unit/mL (3 mL) Sub-Q Insulin Pen RxNorm: 909188 30 Unit(s) SQ QD 06/20/2011 05/08/2012 Inactive Lantus Solostar 100 unit/mL (3 mL) Sub-Q Insulin Pen RxNorm: 711579 30 Unit(s) SQ QD 06/19/2011 06/19/2011 Inactive metformin 1,000 mg Tab RxNorm: 180517 1 Tablet(s) PO BID 05/12/2011 1 11/09/2010 Inactive citalopram 40 mg Tab RxNorm: 731457 1 Tablet(s) PO QD 03/06/201105/2011 Inactive metformin 1,000 mg Tab RxNorm: 776557 1 Tablet(s) PO BID 12/27/2010 0 04/25/2011 Inactive lisinopril 20 mg Tab RxNorm: 717230 Tablet(s) PO TAKE 1 TABLET BY MOUTH EVERY DAY;Generic For:*PRINIVIL 20 MG TABLET 12/26/2010 08/20/2011 Inactive Ceftin 500 mg Tab RxNorm: 107301 1 Tablet(s) PO BID 12/19/20102010 Inactive omeprazole 20 mg Cap, Delayed Release RxNorm: 295212 2 Capsule( s) PO QD 09/13/2010 03/11/2011 Inactive Byetta 10 mcg/0.04 mL per dose Sub-Q Pen Injector RxNorm: 84 7913 1 Unit Dose SQ BID 09/07/2010 10/06/2010 Inactive Celexa 40 mg tablet RxNorm: 253449 1 Tablet(s) PO QD re places lexapro. Generic OKAY 08/09/2010 02/04/2011 Inactive Actos 30 mg Tab RxNorm: 406228 1 Tablet(s) PO QD 08/09/2010 04/02/2011 Inactive lisinopril 20 mg Tab RxNorm: 342898 1 Tablet(s) PO QD 08/09/201011/22 Inactive metformin 1,000 mg Tab RxNorm: 868223 1 Tablet(s) PO BID 08/09/2010 0 12/06/2010 Inactive Metformin 1,000 mg Tab RxNorm: 831824 1 Tablet(s) PO BID 04/26/2010 0 04/25/2010 Inactive metformin 1,000 mg Tab RxNorm: 102568 1 Tablet(s) PO BID 04/26/2010 1 Inactive Lomotil 2.5 mg-0.025 mg Tab RxNorm: 0744730 1 Tablet(s) PO TID 1-2 TABS THREE TIMES DAILY 04/05/2010 04/07/2010 Inactive Mupirocin 2 % Topical Cream RxNorm: 837244 TOP BID 04/05/201003/25 Inactive lisinopril 20 mg Tab RxNorm: 074868 1 Tablet(s) PO QD 03/29/201010/2009 Inactive Actos 30 mg Tab RxNorm: 313438 1 Tablet(s) PO QD 03/29/2010 07/26/2010 Inactive Lisinopril 20 mg Tab RxNorm: 052540 1 Tablet(s) PO QD 02/27/201001/2010 Inactive Actos 30 mg Tab RxNorm: 577685 1 Tablet(s) PO QD 02/14/2010 03/28/2010 Inactive Celexa 40 mg Tab RxNorm: 359571 1 Tablet(s) PO QD replaces lexapro 01/13/2010 07/11/2010 Inactive Cyclobenzaprine 10 mg Tab RxNorm: 004344 1 Tablet(s) PO TID prn spasm 12/23/2009 01/21/2010 Inactive Cyclobenzaprine 10 mg Tab RxNorm: 301314 1 Tablet(s) PO TID 010 12/22/2009 Inactive Hydrocodone-Acetaminophen 7.5 mg-750 mg Tab RxNorm: 046624 1 Ta blet(s) PO Q4-6H 12/23/2009 12/22/2009 Inactive aspirin 81 mg tablet RxNorm: 666948 1 Tablet(s) PO QD No Start Date Active isosorbide mononitrate ER 60 mg tablet,extended release 24 h r RxNorm: 490121 1 Tablet(s) PO QD No Start Date Active amlodipine 5 mg tablet RxNorm: 992942 1 Tablet(s) PO QD No Start Date Active Vitamin D3 1,000 unit tablet RxNorm: 083083 3 Tablet(s) PO QD No St art Date 10/26/2014 Inactive Lexapro 20 mg Tab RxNorm: 958718 1 Tablet(s) PO QD No Start Date 12/24 Inactive loperamide 2 mg tablet RxNorm: 282678 Tablet(s) PO PRN No Start Date 06/07/2016 Inactive Levemir FlexTouch U-100 Insulin 100 unit/mL (3 mL) sub cutaneous pen RxNorm: 422941 22 Unit(s) SQ QD No Start Date 12/21/2019 Inactive Janumet 50 mg-1,000 mg Tab RxNorm: 987762 1 Tablet(s) PO BID No Sta rt Date 01/12/2010 Inactive Levemir U-100 Insulin 100 unit/mL subcutaneous solution RxNo rm: 650059 10 Unit(s) SQ QHS No Start Date 12/08/2018 Inactive Medrol (Gui) 4 mg tablets in a dose pack RxNorm: 633686 Tablet(s) PO Use as directed No Start Date 12/22/2018 Inactive aspirin 325 mg tablet RxNorm: 355531 1 Tablet(s) PO QD No Start Date 08/09/2016 Inactive Efudex 5 % Topical Cream RxNorm: 649346 Application TOP QD prn fto skin lesion No Start Date 08/12/2013 Inactive nitroglycerin 0.4 mg sublingual tablet RxNorm: 034861 Tablet(s) SL as needed No Start Date 12/18/2018 Inactive levofloxacin 500 mg tablet RxNorm: 627394 1 Tablet(s) PO QD No Star t Date 08/06/2018 Inactive ferrous sulfate 325 mg (65 mg iron) tablet RxNorm: 694981 1 Tab let(s) PO QHS No Start Date 04/16/2017 Inactive fluorouracil 5 % topical cream RxNorm: 962029 1 TOP No Start James e 08/06/2018 Inactive Vitamin D3 1,000 unit capsule RxNorm: 915080 1 Capsule(s) PO QD No Start Date 02/03/2018 Inactive Hydrocodone-Acetaminophen 7.5 mg-750 mg Tab RxNorm: 206106 1 Ta blet(s) PO PRN No Start Date 08/09/2014 Inactive pantoprazole 40 mg tablet,delayed release RxNorm: 093277 1 Tabl et(s) PO QD No Start Date 01/22/2018 Inactive omeprazole 20 mg Cap, Delayed Release RxNorm: 149575 2 Capsule( s) PO QD No Start Date 09/12/2010 Inactive DuoNeb 0.5 mg-3 mg(2.5 mg base)/3 mL solution for nebulizati on RxNorm: 6261898 INH Q4H as needed No Start Date 10/22/2018 Inactive Lyrica 75 mg capsule RxNorm: 960766 2 Capsule(s) PO QHS No Start Da te 03/09/2019 Inactive isosorbide mononitrate ER 30 mg tablet,extended release 24 h r RxNorm: 817538 1 Tablet(s) PO QD No Start Date 12/08/2018 Inactive Tradjenta 5 mg tablet RxNorm: 5601176 1 Tablet(s) PO QD No Start Da te 08/09/2016 Inactive Tudorza Pressair 400 mcg/actuation breath activated RxNorm: 5581214 1 Puff(s) INH BID No Start Date 06/17/2017 Inactive Lantus Solostar 100 unit/mL (3 mL) Sub-Q Insulin Pen RxNorm: 240993 30 Unit(s) SQ QD No Start Date 06/18/2011 Inactive Requip 4 mg tablet RxNorm: 036032 1 Tablet(s) PO BID No Start Date Inactive Symbicort 160 mcg-4.5 mcg/actuation HFA aerosol inhaler RxNo rm: 4985800 2 Puff(s) INH BID No Start Date 07/11/2018 Inactive atorvastatin 40 mg tablet RxNorm: 472095 1 Tablet(s) PO QD No Start Date 12/18/2018 Inactive tramadol 50 mg tablet RxNorm: 760651 1 Tablet(s) PO TID as needed for pain (take alone with two extra strength tylenol) No Start Date 01/16/2019 Inactive Symbicort 160 mcg-4.5 mcg/actuation HFA aerosol inhaler RxNo rm: 4528387 2 Puff(s) INH BID No Start Date 08/12/2013 Inactive Vitamin D3 5,000 unit tablet RxNorm: 557183 1 Tablet(s) PO QD No St art Date 05/08/2019 Inactive albuterol sulfate 2.5 mg/3 mL (0.083 %) Neb Solution RxNorm: 951375 1 Unit Dose INH Q4H prn wheezing or shortness of breath No Start Date 01/29/2013 Inac tive Ranexa 500 mg tablet,extended release RxNorm: 771316 1 Tablet(s ) PO BID No Start Date 02/03/2018 Inactive Advair Diskus 500 mcg-50 mcg/dose powder for inhalation RxNo rm: 0805626 1 Puff(s) INH BID No Start Date 08/09/2016 Inactive clopidogrel 75 mg tablet RxNorm: 644816 1 Tablet(s) PO QD No Start Date 05/01/2018 Inactive metformin 1,000 mg Tab RxNorm: 682555 1 Tablet(s) PO BID No Start D ate 08/12/2013 Inactive Silenor 3 mg tablet RxNorm: 090366 1 Tablet(s) PO QHS No Start Date 0 04/04/2017 Inactive Medrol (Gui) 4 mg tablets in a dose pack RxNorm: 177597 Tablet(s) PO as directed No Start Date 01/19/2013 Inactive Requip 4 mg tablet RxNorm: 497891 1 Tablet(s) PO BID No Start Date Inactive clopidogrel 75 mg tablet RxNorm: 800381 1 Tablet(s) PO QD No Start Date 02/03/2018 Inactive Tradjenta 5 mg tablet RxNorm: 7230756 1 Tablet(s) PO QD No Start Da te 02/03/2018 Inactive ProAir HFA 90 mcg/Actuation Aerosol Inhaler RxNorm: 860453 2 Pu ff(s) INH PRN No Start Date 07/09/2012 Inactive Tessalon Perles 100 mg capsule RxNorm: 928583 1 Capsule (s) PO TID as needed for cough No Start Date 08/30/2014 Inactive ferrous sulfate 325 mg (65 mg iron) tablet RxNorm: 205935 1 Tab let(s) PO QD No Start Date 05/08/2019 Inactive pioglitazone 15 mg tablet RxNorm: 176378 1 Tablet(s) PO QD No Start Date 09/20/2014 Inactive Lexapro Oral RxNorm: Oral No Start Date 12/13/2009 Inactive Breo Ellipta 100 mcg-25 mcg/dose powder for inhalation RxNor m: 6061395 1 Puff(s) INH BID No Start Date 05/31/2015 Inactive Tylenol Extra Strength 500 mg tablet RxNorm: 833889 2 T ablet(s) PO QHS along with ropironole No Start Date 12/18/2018 Inactive tramadol 50 mg tablet RxNorm: 384326 1 Tablet(s) PO QID as need ed for pain No Start Date 12/24/2018 Inactive cyclobenzaprine 10 mg Tab RxNorm: 591229 Oral No Start Date 12/22 Inactive Levemir FlexTouch 100 unit/mL (3 mL) subcutaneous insulin pe n RxNorm: 467781 10 Unit(s) SQ QD No Start Date 03/08/2016 Inactive amlodipine 5 mg tablet RxNorm: 322001 1 Tablet(s) PO QD No Start Da te 08/09/2016 Inactive Novolog 100 unit/mL subcutaneous solution RxNorm: 479835 10 Uni t(s) SQ AC No Start Date 08/12/2017 Inactive Levemir FlexTouch 100 unit/mL (3 mL) subcutaneous insulin pe n RxNorm: 317202 25 Unit(s) SQ QPM No Start Date 08/06/2018 Inactive Farxiga 5 mg tablet RxNorm: 6892815 1 Tablet(s) PO QD No Start Date 0 10/05/2014 Inactive DuoNeb 0.5 mg-3 mg(2.5 mg base)/3 mL solution for nebulizati on RxNorm: 8388189 inhalation No Start Date 09/23/2014 Inactive Doxycycline 100 mg Cap RxNorm: 008541 1 Capsule(s) PO BID No Start Date 12/18/2010 Inactive Vitamin B12 1000mcg Tablet RxNorm: 1 Tablet(s) PO QD No Start Date 02/03/2018 Inactive Hydrocodone-Acetaminophen 7.5 mg-750 mg Tab RxNorm: 706641 1 Ta blet(s) PO Q6-8H No Start Date 12/22/2009 Inactive Xigduo XR 5 mg-1,000 mg tablet,extended release RxNorm: 1593 833 1 Tablet(s) PO QD No Start Date 05/31/2015 Inactive cyanocobalamin (vit B-12) 1,000 mcg/mL injection solution Rx Norm: 735316 1 injection weekly for 4 weeks 1 Milliliter(s) Inj No Start Date 05/08/2019 Inactive AndroGel 1.25 g/Actuation (1%) Transdermal Gel Pump RxNorm: 0128771 TD Apply 4pumps daily No Start Date 08/21/2011 Inactive Actoplus MET 15 mg-850 mg Tab RxNorm: 658767 1 Tablet(s) PO BID No Start Date 12/18/2010 Inactive Amaryl 2 mg tablet RxNorm: 520453 1 Tablet(s) PO BID No Start Date Inactive Levemir FlexTouch 100 unit/mL (3 mL) subcutaneous insulin pe n RxNorm: 944536 20 Unit(s) SQ QD No Start Date 06/12/2016 Inactive Symbicort 160 mcg-4.5 mcg/actuation HFA aerosol inhaler RxNo rm: 9877763 2 Puff(s) INH BID No Start Date 02/03/2018 Inactive Symbicort 160 mcg-4.5 mcg/Actuation Inhalation HFA Aer osol Inhaler RxNorm: 2748004 2 INH BID No Start Date 12/18/2010 Inactive Farxiga 5 mg tablet RxNorm: 0606663 1 Tablet(s) PO QD No Start Date 0 03/01/2015 Inactive magnesium oxide 400 mg (241.3 mg magnesium) tablet RxNorm: 1 63490 1 Tablet(s) PO QHS No Start Date 05/08/2019 Inactive Tradjenta 5 mg tablet RxNorm: 5974330 2 Tablet(s) PO QD No Start Da te 07/21/2015 Inactive Levemir FlexTouch U-100 Insulin 100 unit/mL (3 mL) sub cutaneous pen RxNorm: 353097 40 Unit(s) SQ QD No Start Date 08/06/2018 Inactive Sinemet CR 50 mg-200 mg tablet,extended release RxNorm: 8343 41 1 Tablet(s) PO QHS No Start Date 09/24/2017 Inactive metoprolol tartrate 25 mg tablet RxNorm: 497444 1/2 Tablet(s) P O BID No Start Date 02/03/2018 Inactive Requip 4 mg tablet RxNorm: 714478 1 Tablet(s) PO QHS No Start Date Inactive Ventolin HFA 90 mcg/actuation aerosol inhaler RxNorm: 641557 2 Puff(s) INH Q4H as needed No Start Date 04/22/2018 Inactive B12 5,000 mcg-100 mcg sublingual lozenge RxNorm: 410231 IM as d irected No Start Date 05/08/2019 Inactive ropinirole 1 mg tablet RxNorm: 266607 1 Tablet(s) PO QHS No Start D ate 08/06/2018 Inactive Percocet 5 mg-325 mg tablet RxNorm: 3814674 1 Tablet(s) PO Q4H as needed for pain (Dr Rizzo) No Start Date 10/22/2018 Inactive hydrocodone 5 mg-acetaminophen 325 mg tablet RxNorm: 254437 1 Tablet(s) PO TID as needed for pain for severe pain No Start Date 04/16/2014 Inactive scopolamine 1.5 mg 72 hr Transderm Patch RxNorm: 531684 Application TD Q72H for dizziness No Start Date 08/12/2013 Inactive ipratropium-albuterol 0.5 mg-3 mg(2.5 mg base)/3 mL ne bulization soln RxNorm: 3065410 1 Unit Dose INH Q4H No Start Date 01/16/2019 Inactive Medication Administered No Medication Administered data Immunizations Vaccine Codes Date Status Influenza CVX: 135 08/07/2019 Complete Pneumococcal CVX: 33 07/24/2017 Complete Influenza CVX: 135 06/13/2016 Complete Pneumococcal CVX: 133 06/13/2016 Complete Influenza CVX: 141 07/10/2012 Pneumovax Unknown 07/10/2012 Results Observation Observation Code Item Item Code Result Date S vic Location COMPLETE BLOOD COUNT [id number] WBC 5.5 10e9/L 06/17/20 19 Unknown COMPLETE BLOOD COUNT [id number] RBC 3.92 10e12/L 2018 Unknown COMPLETE BLOOD COUNT [id number] HEMOGLOBIN 10.9 g/dL 06/17/20 19 Unknown COMPLETE BLOOD COUNT [id number] HEMATOCRIT 34.8 % 06/17/20 19 Unknown COMPLETE BLOOD COUNT [id number] MCV 88.8 fL 9 Unknown COMPLETE BLOOD COUNT [id number] MCH 27.8 pg 9 Unknown COMPLETE BLOOD COUNT [id number] MCHC 31.3 g/dL 9 Unknown COMPLETE BLOOD COUNT [id number] PLATELET COUNT 239 10e9/L Unknown COMPLETE BLOOD COUNT [id number] Mean Plt Volume 10.0 fL Unknown COMPLETE BLOOD COUNT 4068809 Neut Auto 68.0 % 9 Unknown COMPLETE BLOOD COUNT [id number] Lymph Auto 14.8 % 06/17/20 19 Unknown COMPLETE BLOOD COUNT [id number] [place] Auto 13.1 % 9 Unknown COMPLETE BLOOD COUNT [id number] RDW 14.7 % 9 Unknown COMPLETE BLOOD COUNT 1132267 Eos Auto 3.6 % 9 Unknown COMPLETE BLOOD COUNT 2609507 Baso Auto 0.5 % 9 Unknown COMPLETE BLOOD COUNT [id number] Neutrophil Abs 3.74 10e9/L Unknown COMPLETE BLOOD COUNT 3295343 Lymphocyte Abs 0.81 10e9/L Unknown COMPLETE BLOOD COUNT [id number] Monocyte Abs 0.72 10e9/L 05/26 Unknown COMPLETE BLOOD COUNT [id number] Eosinophil Abs 0.20 10e9/L Unknown COMPLETE BLOOD COUNT 6017392 RDW-SD 46.4 fL 9 Unknown COMPLETE BLOOD COUNT [id number] Basophil Abs 0.03 10e9/L 05/26 Unknown IRON 40285 Iron 36 ug/dL 06/17/2019 Unknown VITAMIN B 12 71065 VITAMIN B12 540 pg/mL 06/17/2019 Unkn own GFR CALC 6249974 GFR Non Afr Amr 59 mL/min 06/17/2019 Unk nown GFR CALC 8468041 GFR Afr Amr >60 mL/min 06/17/2019 Unknow n ERYTHROCYTE SEDIMENTATION RATE 81636 Sed Rate 34 mm/hr 06/17/2019 Unknown THYROID STIMULATING HORMONE 79780 TSH 2.217 uIU/mL 06/17/2019 Unknown COMPREHENSIVE METABOLIC 44331 AST 12 U/L 2018 Unknown COMPREHENSIVE METABOLIC 13005 ALT 11 U/L 2018 Unknown COMPREHENSIVE METABOLIC 82059 BUN 17 mg/dL 2018 Unknown COMPREHENSIVE METABOLIC 84129 ALBUMIN 3.9 g/dL 2018 Unknown COMPREHENSIVE METABOLIC 83500 CHLORIDE 103 mmol/L 06/17 Unknown COMPREHENSIVE METABOLIC 04486 Bili Total 0.4 mg/dL 06/17 Unknown COMPREHENSIVE METABOLIC 67447 ALK PHOS 51 U/L 2018 Unknown COMPREHENSIVE METABOLIC 04943 SODIUM 140 mmol/L 06/17 Unknown COMPREHENSIVE METABOLIC 08947 CREATININE 1.20 mg/dL 05/26 Unknown COMPREHENSIVE METABOLIC 18054 CALCIUM 8.9 mg/dL 2018 Unknown COMPREHENSIVE METABOLIC 56161 POTASSIUM 4.5 mmol/L 06/17 Unknown COMPREHENSIVE METABOLIC 78302 Total Protein 6.1 g/dL Unknown COMPREHENSIVE METABOLIC 45883 Glucose 108 mg/dL 2018 Unknown COMPREHENSIVE METABOLIC 37001 Bicarbonate 27 mmol/L 05/26 Unknown COMPREHENSIVE METABOLIC 53166 AGAP 10 mmol/L 2018 Unknown FERRITIN 23597 FERRITIN 35.5 ng/mL 05/08/2019 Unknown VITAMIN D TOTAL (25 HYDROXY) 61820 Vitamin D 25 OH 26.0 ng/mL 05/08/2019 Unknown GLYCOSYLATED HEMOGLOBIN TEST 87582 Hgb A1c 94229-8 8.2 % 0 05/08/2019 Unknown MEAN GLUC 6799998 Calc Mean Gluc 189 mg/dL 05/08/2019 Unkn own GFR CALC 6921818 GFR Non Afr Amr >60 mL/min 05/08/2019 Un known GFR CALC 5223790 GFR Afr Amr >60 mL/min 05/08/2019 Unknow n VITAMIN B 12 67937 VITAMIN B12 197 pg/mL 05/08/2019 Unkn own IRON 64964 Iron 34 ug/dL 05/08/2019 Unknown COMPLETE BLOOD COUNT 6456035 WBC 6.9 10e9/L 05/08/20 19 Unknown COMPLETE BLOOD COUNT [id number] RBC 3.95 10e12/L 2018 Unknown COMPLETE BLOOD COUNT 2330694 HEMOGLOBIN 11.1 g/dL 05/08/20 19 Unknown COMPLETE BLOOD COUNT [id number] HEMATOCRIT 34.9 % 05/08/20 19 Unknown COMPLETE BLOOD COUNT [id number] MCV 88.4 fL 9 Unknown COMPLETE BLOOD COUNT 6548787 MCH 28.1 pg 9 Unknown COMPLETE BLOOD COUNT 4685798 MCHC 31.8 g/dL 9 Unknown COMPLETE BLOOD COUNT 4701793 PLATELET COUNT 217 10e9/L Unknown COMPLETE BLOOD COUNT 7020917 Mean Plt Volume 9.6 fL Unknown COMPLETE BLOOD COUNT 0616995 Neut Auto 77.6 % 9 Unknown COMPLETE BLOOD COUNT 9080940 Lymph Auto 10.7 % 05/08/20 19 Unknown COMPLETE BLOOD COUNT [id number] [place] Auto 10.4 % 9 Unknown COMPLETE BLOOD COUNT 2588423 RDW 14.7 % 9 Unknown COMPLETE BLOOD COUNT 8156465 Eos Auto 1.2 % 9 Unknown COMPLETE BLOOD COUNT 7310203 Baso Auto 0.1 % 9 Unknown COMPLETE BLOOD COUNT 9021232 Neutrophil Abs 5.35 10e9/L Unknown COMPLETE BLOOD COUNT 7753491 Lymphocyte Abs 0.74 10e9/L Unknown COMPLETE BLOOD COUNT [id number] Monocyte Abs 0.72 10e9/L 04/24 Unknown COMPLETE BLOOD COUNT 2393565 Eosinophil Abs 0.08 10e9/L Unknown COMPLETE BLOOD COUNT 8060071 RDW-SD 46.6 fL 9 Unknown COMPLETE BLOOD COUNT [id number] Basophil Abs 0.01 10e9/L 04/24 Unknown COMPREHENSIVE METABOLIC 49157 AST 13 U/L 2018 Unknown COMPREHENSIVE METABOLIC 13479 ALT 9 U/L 2018 Unknown COMPREHENSIVE METABOLIC 48019 BUN 18 mg/dL 2018 Unknown COMPREHENSIVE METABOLIC 24173 ALBUMIN 4.3 g/dL 2018 Unknown COMPREHENSIVE METABOLIC 23518 CHLORIDE 99 mmol/L 2018 Unknown COMPREHENSIVE METABOLIC 05615 Bili Total 0.4 mg/dL 05/08 Unknown COMPREHENSIVE METABOLIC 94174 ALK PHOS 48 U/L 2018 Unknown COMPREHENSIVE METABOLIC 96736 SODIUM 137 mmol/L 05/08 Unknown COMPREHENSIVE METABOLIC 13916 CREATININE 0.79 mg/dL 04/24 Unknown COMPREHENSIVE METABOLIC 07823 CALCIUM 9.5 mg/dL 2018 Unknown COMPREHENSIVE METABOLIC 73660 POTASSIUM 4.0 mmol/L 05/08 Unknown COMPREHENSIVE METABOLIC 96273 Total Protein 6.3 g/dL Unknown COMPREHENSIVE METABOLIC 53396 Glucose 232 mg/dL 2018 Unknown COMPREHENSIVE METABOLIC 64139 Bicarbonate 27 mmol/L 04/24 Unknown COMPREHENSIVE METABOLIC 79609 AGAP 11 mmol/L 2018 Unknown GLYCOSYLATED HEMOGLOBIN TEST 63157 Hgb A1c 98916-7 8.9 % 0 12/10/2018 Unknown MEAN GLUC 5056014 Calc Mean Gluc 209 mg/dL 12/10/2018 Unkn own LIPID GROUP 98707 Cholesterol 145 mg/dL 12/09/2018 Unkno wn LIPID GROUP 60422 Triglyceride 235 mg/dL 12/09/2018 Unkn own LIPID GROUP 27514 HDL CHOLESTEROL 40 mg/dL 12/09/2018 U nknown LIPID GROUP 28167 Chol/HDL Ratio 3.62 ratio 12/09/2018 U nknown LIPID GROUP 94999 NON-HDL Chol 105 mg/dL 12/09/2018 Unkn own LIPID GROUP 85355 LDL Cholesterol 58 mg/dL 12/09/2018 U nknown THYROID STIMULATING HORMONE 92379 TSH 1.071 uIU/mL 12/09/2018 Unknown GFR CALC 5369150 GFR Non Afr Amr >60 mL/min 12/09/2018 Un known GFR CALC 8515238 GFR Afr Amr >60 mL/min 12/09/2018 Unknow n COMPLETE BLOOD COUNT 1015245 WBC 7.6 10e9/L 12/10/19 19 Unknown COMPLETE BLOOD COUNT [id number] RBC 3.97 10e12/L 2018 Unknown COMPLETE BLOOD COUNT 4866722 HEMOGLOBIN 11.4 g/dL 12/10/19 19 Unknown COMPLETE BLOOD COUNT [id number] HEMATOCRIT 35.8 % 12/10/19 19 Unknown COMPLETE BLOOD COUNT 0978625 MCV 90.2 fL 9 Unknown COMPLETE BLOOD COUNT 1077091 MCH 28.7 pg 9 Unknown COMPLETE BLOOD COUNT 5239707 MCHC 31.8 g/dL 9 Unknown COMPLETE BLOOD COUNT 9297436 PLATELET COUNT 200 10e9/L Unknown COMPLETE BLOOD COUNT 8894821 Mean Plt Volume 10.1 fL Unknown COMPLETE BLOOD COUNT 6486746 Neut Auto 79.0 % 9 Unknown COMPLETE BLOOD COUNT 4958746 Lymph Auto 8.3 % 12/10/19 19 Unknown COMPLETE BLOOD COUNT 0773011 [place] Auto 10.8 % 9 Unknown COMPLETE BLOOD COUNT 3536386 RDW 14.6 % 9 Unknown COMPLETE BLOOD COUNT 3871489 Eos Auto 1.5 % 9 Unknown COMPLETE BLOOD COUNT 3320738 Baso Auto 0.4 % 9 Unknown COMPLETE BLOOD COUNT 5595063 Neutrophil Abs 6.00 10e9/L Unknown COMPLETE BLOOD COUNT 7466868 Lymphocyte Abs 0.63 10e9/L Unknown COMPLETE BLOOD COUNT [id number] Monocyte Abs 0.82 10e9/L 11/22 Unknown COMPLETE BLOOD COUNT 9176478 Eosinophil Abs 0.11 10e9/L Unknown COMPLETE BLOOD COUNT 5195569 RDW-SD 46.9 fL 9 Unknown COMPLETE BLOOD COUNT [id number] Basophil Abs 0.03 10e9/L 11/22 Unknown COMPREHENSIVE METABOLIC 75976 AST 11 U/L 2018 Unknown COMPREHENSIVE METABOLIC 53888 ALT 11 U/L 2018 Unknown COMPREHENSIVE METABOLIC 87774 BUN 21 mg/dL 2018 Unknown COMPREHENSIVE METABOLIC 67761 ALBUMIN 4.7 g/dL 2018 Unknown COMPREHENSIVE METABOLIC 92690 CHLORIDE 99 mmol/L 2018 Unknown COMPREHENSIVE METABOLIC 36510 Bili Total 0.4 mg/dL 12/09 Unknown COMPREHENSIVE METABOLIC 70172 ALK PHOS 73 U/L 2018 Unknown COMPREHENSIVE METABOLIC 53279 SODIUM 137 mmol/L 12/09 Unknown COMPREHENSIVE METABOLIC 71648 CREATININE 1.12 mg/dL 11/22 Unknown COMPREHENSIVE METABOLIC 39960 CALCIUM 9.4 mg/dL 2018 Unknown COMPREHENSIVE METABOLIC 01523 POTASSIUM 4.2 mmol/L 12/09 Unknown COMPREHENSIVE METABOLIC 60805 Total Protein 6.8 g/dL Unknown COMPREHENSIVE METABOLIC 46898 Glucose 194 mg/dL 2018 Unknown COMPREHENSIVE METABOLIC 26437 Bicarbonate 30 mmol/L 11/22 Unknown COMPREHENSIVE METABOLIC 53464 AGAP 8 mmol/L 2018 Unknown FREE T4 64284 T4 Free 0.86 ng/dL 12/09/2018 Unknown COMPLETE BLOOD COUNT 8105121 WBC 6.8 10e9/L 04/17/20 17 Unknown COMPLETE BLOOD COUNT [id number] RBC 3.86 10e12/L 2016 Unknown COMPLETE BLOOD COUNT 4125321 HEMOGLOBIN 9.8 g/dL 04/17/20 17 Unknown COMPLETE BLOOD COUNT 8115146 HEMATOCRIT 31.1 % 04/17/20 17 Unknown COMPLETE BLOOD COUNT 5626859 MCV 80.6 fL 7 Unknown COMPLETE BLOOD COUNT [id number] MCH 25.4 pg 7 Unknown COMPLETE BLOOD COUNT 7431708 MCHC 31.5 g/dL 7 Unknown COMPLETE BLOOD COUNT 3148429 PLATELET COUNT 247 10e9/L Unknown COMPLETE BLOOD COUNT 8871638 Mean Plt Volume 9.7 fL Unknown COMPLETE BLOOD COUNT 1829502 Neut Auto 74.1 % 7 Unknown COMPLETE BLOOD COUNT 9279659 Lymph Auto 12.0 % 04/17/20 17 Unknown COMPLETE BLOOD COUNT 1488084 [place] Auto 10.8 % 7 Unknown COMPLETE BLOOD COUNT 6491560 RDW 15.9 % 7 Unknown COMPLETE BLOOD COUNT 2964443 Eos Auto 2.5 % 7 Unknown COMPLETE BLOOD COUNT 0233989 Baso Auto 0.6 % 7 Unknown COMPLETE BLOOD COUNT [id number] Neutrophil Abs 5.04 10e9/L Unknown COMPLETE BLOOD COUNT 3171840 Lymphocyte Abs 0.82 10e9/L Unknown COMPLETE BLOOD COUNT [id number] Monocyte Abs 0.73 10e9/L 03/25 Unknown COMPLETE BLOOD COUNT 7965279 Eosinophil Abs 0.17 10e9/L Unknown COMPLETE BLOOD COUNT 9367836 RDW-SD 44.4 fL 7 Unknown COMPLETE BLOOD COUNT [id number] Basophil Abs 0.04 10e9/L 03/25 Unknown MEAN GLUC 0757787 Calc Mean Gluc 223 mg/dL 04/17/2017 Unkn own GFR CALC 1801238 GFR Non Afr Amr >60 mL/min 04/17/2017 Un known GFR CALC 1161525 GFR Afr Amr >60 mL/min 04/17/2017 Unknow n GLYCOSYLATED HEMOGLOBIN TEST 85802 Hgb A1c 35965-1 9.4 % 0 04/17/2017 Unknown IRON 56578 Iron 37 ug/dL 04/17/2017 Unknown VITAMIN B 12 85663 VITAMIN B12 280 pg/mL 04/17/2017 Unkn own THYROID STIMULATING HORMONE 02288 TSH 2.481 uIU/mL 04/17/2017 Unknown COMPREHENSIVE METABOLIC 23090 AST 13 U/L 2016 Unknown COMPREHENSIVE METABOLIC 16390 ALT 12 U/L 2016 Unknown COMPREHENSIVE METABOLIC 60938 BUN 18 mg/dL 2016 Unknown COMPREHENSIVE METABOLIC 35997 ALBUMIN 4.7 g/dL 2016 Unknown COMPREHENSIVE METABOLIC 94858 CHLORIDE 103 mmol/L 04/17 Unknown COMPREHENSIVE METABOLIC 48564 Bili Total 0.4 mg/dL 04/17 Unknown COMPREHENSIVE METABOLIC 13068 ALK PHOS 49 U/L 2016 Unknown COMPREHENSIVE METABOLIC 11376 SODIUM 140 mmol/L 04/17 Unknown COMPREHENSIVE METABOLIC 67395 CREATININE 1.14 mg/dL 03/25 Unknown COMPREHENSIVE METABOLIC 13884 CALCIUM 9.4 mg/dL 2016 Unknown COMPREHENSIVE METABOLIC 12182 POTASSIUM 4.4 mmol/L 04/17 Unknown COMPREHENSIVE METABOLIC 86596 Total Protein 6.7 g/dL Unknown COMPREHENSIVE METABOLIC 56897 Glucose 266 mg/dL 2016 Unknown COMPREHENSIVE METABOLIC 64503 Bicarbonate 25 mmol/L 03/25 Unknown COMPREHENSIVE METABOLIC 08448 AGAP 12 mmol/L 2016 Unknown FERRITIN 25761 FERRITIN 10.0 ng/mL 04/17/2017 Unknown COMPLETE BLOOD COUNT 5297109 WBC 6.8 10e9/L 12/22/19 17 Unknown COMPLETE BLOOD COUNT [id number] RBC 3.70 10e12/L 2016 Unknown COMPLETE BLOOD COUNT 8559021 HEMOGLOBIN 8.0 g/dL 12/22/19 17 Unknown COMPLETE BLOOD COUNT [id number] HEMATOCRIT 26.7 % 12/22/19 17 Unknown COMPLETE BLOOD COUNT [id number] MCV 72.2 fL 7 Unknown COMPLETE BLOOD COUNT 3117409 MCH 21.6 pg 7 Unknown COMPLETE BLOOD COUNT 3456291 MCHC 30.0 g/dL 7 Unknown COMPLETE BLOOD COUNT [id number] PLATELET COUNT 290 10e9/L Unknown COMPLETE BLOOD COUNT [id number] Mean Plt Volume 9.3 fL Unknown COMPLETE BLOOD COUNT [id number] Neut Auto 80.2 % 7 Unknown COMPLETE BLOOD COUNT [id number] Lymph Auto 9.8 % 12/22/19 17 Unknown COMPLETE BLOOD COUNT [id number] [place] Auto 8.1 % 7 Unknown COMPLETE BLOOD COUNT [id number] RDW 17.4 % 7 Unknown COMPLETE BLOOD COUNT [id number] Eos Auto 1.5 % 7 Unknown COMPLETE BLOOD COUNT [id number] Baso Auto 0.4 % 7 Unknown COMPLETE BLOOD COUNT [id number] Neutrophil Abs 5.45 10e9/L Unknown COMPLETE BLOOD COUNT [id number] Lymphocyte Abs 0.67 10e9/L Unknown COMPLETE BLOOD COUNT [id number] Monocyte Abs 0.55 10e9/L 11/24 Unknown COMPLETE BLOOD COUNT [id number] Eosinophil Abs 0.10 10e9/L Unknown COMPLETE BLOOD COUNT [id number] RDW-SD 44.1 fL 7 Unknown COMPLETE BLOOD COUNT [id number] Basophil Abs 0.03 10e9/L 11/24 Unknown COMPLETE BLOOD COUNT [id number] WBC 7.6 10e9/L 12/13/19 17 Unknown COMPLETE BLOOD COUNT [id number] RBC 3.71 10e12/L 2016 Unknown COMPLETE BLOOD COUNT [id number] HEMOGLOBIN 8.0 g/dL 12/13/19 17 Unknown COMPLETE BLOOD COUNT [id number] HEMATOCRIT 27.3 % 12/13/19 17 Unknown COMPLETE BLOOD COUNT [id number] MCV 73.6 fL 7 Unknown COMPLETE BLOOD COUNT [id number] MCH 21.6 pg 7 Unknown COMPLETE BLOOD COUNT [id number] MCHC 29.3 g/dL 7 Unknown COMPLETE BLOOD COUNT [id number] PLATELET COUNT 330 10e9/L Unknown COMPLETE BLOOD COUNT [id number] Mean Plt Volume 9.7 fL Unknown COMPLETE BLOOD COUNT [id number] Neut Auto 73.2 % 7 Unknown COMPLETE BLOOD COUNT [id number] Lymph Auto 14.5 % 12/13/19 17 Unknown COMPLETE BLOOD COUNT [id number] [place] [employer] 10.5 % 7 Unknown COMPLETE BLOOD COUNT [id number] RDW 17.3 % 7 Unknown COMPLETE BLOOD COUNT [id number] Eos Auto 1.3 % 7 Unknown COMPLETE BLOOD COUNT [id number] Baso Auto 0.5 % 7 Unknown COMPLETE BLOOD COUNT [id number] Neutrophil Abs 5.56 10e9/L Unknown COMPLETE BLOOD COUNT [id number] Lymphocyte Abs 1.10 10e9/L Unknown COMPLETE BLOOD COUNT [id number] Monocyte Abs 0.80 10e9/L 11/23 Unknown COMPLETE BLOOD COUNT [id number] Eosinophil Abs 0.10 10e9/L Unknown COMPLETE BLOOD COUNT 8333713 RDW-SD 45.2 fL 7 Unknown COMPLETE BLOOD COUNT [id number] Basophil Abs 0.04 10e9/L 11/23 Unknown IRON 72791 Iron 69 ug/dL 03/09/2016 Unknown VITAMIN B 12 25564 VITAMIN B12 311 pg/mL 03/09/2016 Unkn own MEAN GLUC [id number] Mean Glucose 260 mg/dL 03/07/2016 Unknow n GLYCOSYLATED HEMOGLOBIN TEST 70881 Hgb A1c 21457-3 10.7 % 0 03/07/2016 Unknown COMPREHENSIVE METABOLIC 03532 AST 14 U/L 2015 Unknown COMPREHENSIVE METABOLIC 82079 ALT 21 U/L 2015 Unknown COMPREHENSIVE METABOLIC 18178 BUN 27 mg/dL 2015 Unknown COMPREHENSIVE METABOLIC 87672 ALBUMIN 4.5 g/dL 2015 Unknown COMPREHENSIVE METABOLIC 19773 CHLORIDE 101 mmol/L 03/06 Unknown COMPREHENSIVE METABOLIC 21442 Bili Total 0.4 mg/dL 03/06 Unknown COMPREHENSIVE METABOLIC 13450 ALK PHOS 49 U/L 2015 Unknown COMPREHENSIVE METABOLIC 47153 SODIUM 136 mmol/L 03/06 Unknown COMPREHENSIVE METABOLIC 59821 CREATININE 1.16 mg/dL 02/22 Unknown COMPREHENSIVE METABOLIC 53856 CALCIUM 9.9 mg/dL 2015 Unknown COMPREHENSIVE METABOLIC 65528 POTASSIUM 4.5 mmol/L 03/06 Unknown COMPREHENSIVE METABOLIC 46011 Total Protein 6.7 g/dL Unknown COMPREHENSIVE METABOLIC 92012 Glucose 245 mg/dL 2015 Unknown COMPREHENSIVE METABOLIC 48962 Bicarbonate 24 mmol/L 02/22 Unknown COMPREHENSIVE METABOLIC 94635 AGAP 11 mmol/L 2015 Unknown THYROID STIMULATING HORMONE 66667 TSH 0.775 uIU/mL 03/06/2016 Unknown TESTOSTERONE TOTAL 64137 Testos Total 96 ng/dL 03/06/20 16 Unknown LIPID GROUP 12682 Cholesterol 146 mg/dL 03/06/2016 Unkno wn LIPID GROUP 89771 Triglyceride 249 mg/dL 03/06/2016 Unkn own LIPID GROUP 64626 HDL CHOLESTEROL 46 mg/dL 03/06/2016 U nknown LIPID GROUP 94510 Chol/HDL Ratio 3.17 ratio 03/06/2016 U nknown LIPID GROUP 10080 NON-HDL Chol 100 mg/dL 03/06/2016 Unkn own LIPID GROUP 89024 LDL Cholesterol 50 mg/dL 03/06/2016 U nknown COMPLETE BLOOD COUNT 4054449 WBC 11.2 10e9/L 016 Unknown COMPLETE BLOOD COUNT [id number] RBC 3.94 10e12/L 2015 Unknown COMPLETE BLOOD COUNT 6950352 HEMOGLOBIN 11.4 g/dL 03/06/20 16 Unknown COMPLETE BLOOD COUNT 1853582 HEMATOCRIT 33.7 % 03/06/20 16 Unknown COMPLETE BLOOD COUNT 4622759 MCV 85.5 fL 6 Unknown COMPLETE BLOOD COUNT 6193805 MCH 28.9 pg 6 Unknown COMPLETE BLOOD COUNT 1486058 MCHC 33.8 g/dL 6 Unknown COMPLETE BLOOD COUNT 8867645 PLATELET COUNT 204 10e9/L Unknown COMPLETE BLOOD COUNT 0672741 Mean Plt Volume 10.1 fL Unknown COMPLETE BLOOD COUNT 8100793 Neut Auto 85.9 % 6 Unknown COMPLETE BLOOD COUNT 6790387 Lymph Auto 6.8 % 03/06/20 16 Unknown COMPLETE BLOOD COUNT 8712667 [place] [employer] 7.0 % 6 Unknown COMPLETE BLOOD COUNT 8157378 RDW 13.7 % 6 Unknown COMPLETE BLOOD COUNT 8047116 Eos Auto 0.1 % 6 Unknown COMPLETE BLOOD COUNT 8929662 Baso Auto 0.2 % 6 Unknown COMPLETE BLOOD COUNT 1312159 Neutrophil Abs 9.62 10e9/L Unknown COMPLETE BLOOD COUNT 6473389 Lymphoctye Abs 0.76 10e9/L Unknown COMPLETE BLOOD COUNT 0338088 Monocyte Abs 0.78 10e9/L 02/22 Unknown COMPLETE BLOOD COUNT [id number] Eosinophil Abs 0.01 10e9/L Unknown COMPLETE BLOOD COUNT 4544261 RDW-SD 41.9 fL 6 Unknown COMPLETE BLOOD COUNT [id number] Basophil Abs 0.02 10e9/L 02/22 Unknown FREE T4 93748 T4 Free 0.89 ng/dL 03/06/2016 Unknown GFR CALC 4697982 GFR Non Afr Amr >60 mL/min 03/06/2016 Un known GFR CALC 3084180 GFR Afr Amr >60 mL/min 03/06/2016 Unknow n PSA EQUIMOLAR JONATAN 35080 PSA Total 0.78 ng/mL 6 Unknown FREE T4 39827 FREE T4 0.90 NG/DL 07/01/2015 Unknown LIPID GROUP 88228 HDL TEST 44 MG/DL 07/01/2015 Unknown LIPID GROUP 32610 TRIG 303 MG/DL 07/01/2015 Unknown LIPID GROUP 50650 TEST LDL 56 MG/DL 07/01/2015 Unknown LIPID GROUP 97849 CHOL 161 MG/DL 07/01/2015 Unknown LIPID GROUP 31544 RCHOL/HDL 3.66 RATIO 07/01/2015 Unknow n LIPID GROUP 91554 NON-HDL CH 117 MG/DL 07/01/2015 Unknow n THYROID STIMULATING HORMONE 45131 TSH 1.783 uIU/ML 07/01/2015 Unknown COMPLETE BLOOD COUNT 6810968 WBC 6.6 10e9/L 07/01/20 15 Unknown COMPLETE BLOOD COUNT 5617602 RBC 4.18 10e12/L 2014 Unknown COMPLETE BLOOD COUNT 3794684 HGB 12.2 g/dL 5 Unknown COMPLETE BLOOD COUNT 4735344 HCT DET 37.0 % 5 Unknown COMPLETE BLOOD COUNT 3434083 MCV 88.5 fL 5 Unknown COMPLETE BLOOD COUNT 8052509 MCH 29.2 pg 5 Unknown COMPLETE BLOOD COUNT 2085144 MCHC 33.0 g/dL 5 Unknown COMPLETE BLOOD COUNT 0707050 PLT 224 10e9/L 07/01/20 15 Unknown COMPLETE BLOOD COUNT 0221349 MPV 10.4 fL 5 Unknown COMPLETE BLOOD COUNT 8842187 SUSIE % 72.6 % 5 Unknown COMPLETE BLOOD COUNT 2819166 LY % 14.1 % 5 Unknown COMPLETE BLOOD COUNT 9334683 MON % 10.2 % 5 Unknown COMPLETE BLOOD COUNT 3600471 EOS % 2.6 % 5 Unknown COMPLETE BLOOD COUNT 1761889 BASO % 0.5 % 5 Unknown COMPLETE BLOOD COUNT 4309901 RDW 14.1 % 5 Unknown COMPLETE BLOOD COUNT 7610082 ABS SUSIE 4.79 10e9/L 015 Unknown COMPLETE BLOOD COUNT 6569980 ABS LYMPH 0.93 10e9/L 015 Unknown COMPLETE BLOOD COUNT 8983951 ABS MONO 0.67 10e9/L 015 Unknown COMPLETE BLOOD COUNT 1470466 ABS EOS 0.17 10e9/L 015 Unknown COMPLETE BLOOD COUNT 6506698 ABS BASO 0.03 10e9/L 015 Unknown COMPLETE BLOOD COUNT 8932763 RDW-SD 43.9 fL 5 Unknown PSA EQUIMOLAR JONATAN 75560 PSA EQ 0.73 NG/ML 5 Unknown COMPREHENSIVE METABOLIC 86384 AST 24 U/L 2014 Unknown COMPREHENSIVE METABOLIC 33487 ALT 26 IU/L 2014 Unknown COMPREHENSIVE METABOLIC 48174 BUN 26 MG/DL 2014 Unknown COMPREHENSIVE METABOLIC 55282 ALBUMIN 4.6 GM/DL 2014 Unknown COMPREHENSIVE METABOLIC 65326 CHLORIDE 102 MMOL/L 06/01 Unknown COMPREHENSIVE METABOLIC 14685 BILI TOT 0.5 MG/DL 2014 Unknown COMPREHENSIVE METABOLIC 15037 ALK PHOS 56 U/L 2014 Unknown COMPREHENSIVE METABOLIC 94359 SODIUM 136 MMOL/L 06/01 Unknown COMPREHENSIVE METABOLIC 41627 CREATININE 1.16 MG/DL 04/2015 Unknown COMPREHENSIVE METABOLIC 89431 CALCIUM 9.8 MG/DL 2014 Unknown COMPREHENSIVE METABOLIC 11597 POTASSIUM 4.6 MMOL/L 06/01 Unknown COMPREHENSIVE METABOLIC 27584 PROT TOT 7.4 GM/DL 2014 Unknown COMPREHENSIVE METABOLIC 29438 Glucose 223 MG/DL 2014 Unknown COMPREHENSIVE METABOLIC 84789 BICARB 27 MMOL/L 2014 Unknown COMPREHENSIVE METABOLIC 21200 ANION GAP 7 MEQ/L 2014 Unknown GFR CALC 9929447 GFR AA >60 ML/MIN 06/01/2015 Unknown GFR CALC 2174409 GFR NON-AA >60 ML/MIN 06/01/2015 Unknown GLYCOSYLATED HEMOGLOBIN TEST 83015 A1C HPLC 79926-5 8.9 % 0 06/01/2015 Unknown GFR CALC 5170208 GFR AA >60 ML/MIN 02/25/2015 Unknown GFR CALC 6813259 GFR NON-AA >60 ML/MIN 02/25/2015 Unknown COMPREHENSIVE METABOLIC 06290 AST 24 U/L 2014 Unknown COMPREHENSIVE METABOLIC 21591 ALT 25 IU/L 2014 Unknown COMPREHENSIVE METABOLIC 86585 BUN 14 MG/DL 2014 Unknown COMPREHENSIVE METABOLIC 23310 ALBUMIN 4.5 GM/DL 2014 Unknown COMPREHENSIVE METABOLIC 73360 CHLORIDE 99 MMOL/L 2014 Unknown COMPREHENSIVE METABOLIC 32859 BILI TOT 0.5 MG/DL 2014 Unknown COMPREHENSIVE METABOLIC 88722 ALK PHOS 48 U/L 2014 Unknown COMPREHENSIVE METABOLIC 66516 SODIUM 136 MMOL/L 02/25 Unknown COMPREHENSIVE METABOLIC 72586 CREATININE 0.97 MG/DL 12/2014 Unknown COMPREHENSIVE METABOLIC 10751 CALCIUM 9.9 MG/DL 2014 Unknown COMPREHENSIVE METABOLIC 59364 POTASSIUM 4.4 MMOL/L 02/25 Unknown COMPREHENSIVE METABOLIC 61345 PROT TOT 7.1 GM/DL 2014 Unknown COMPREHENSIVE METABOLIC 35897 Glucose 171 MG/DL 2014 Unknown COMPREHENSIVE METABOLIC 50660 BICARB 25 MMOL/L 2014 Unknown COMPREHENSIVE METABOLIC 32909 ANION GAP 12 MEQ/L 2014 Unknown PROTEIN/CREAT URINE WITH RATIO 84919|31528 PROT R U 19 MG/D L 08/27/2014 Unknown PROTEIN/CREAT URINE WITH RATIO 64680|83994 CREAT R U 111 MG/ DL 08/27/2014 Unknown PROTEIN/CREAT URINE WITH RATIO 56348|37559 XRATIO P/C 171 MG /G 08/27/2014 Unknown MICROALBUMIN URINE RANDOM 51460 MICRL MG/L 34.7 MG/L 12/2013 Unknown MICROALBUMIN URINE RANDOM 75033 XM.ALB/CRE 32.7 MG/GCR 1 10/28/2013 Unknown MICROALBUMIN URINE RANDOM 55200 CREAT MG/D 106 MG/DL 12/2013 Unknown MICROALBUMIN URINE RANDOM 58009 CRE/100 1.06 G/L 12/2013 Unknown COMPLETE BLOOD COUNT 9228246 WBC 7.1 10e9/L 08/05/20 14 Unknown COMPLETE BLOOD COUNT 8233589 RBC 4.35 10e12/L 2013 Unknown COMPLETE BLOOD COUNT 9986749 HGB 12.9 g/dL 4 Unknown COMPLETE BLOOD COUNT 4058517 HCT DET 39.4 % 4 Unknown COMPLETE BLOOD COUNT 1459822 MCV 90.6 fL 4 Unknown COMPLETE BLOOD COUNT 7190889 MCH 29.7 pg 4 Unknown COMPLETE BLOOD COUNT 9228140 MCHC 32.7 g/dL 4 Unknown COMPLETE BLOOD COUNT 9508076 PLT 240 10e9/L 08/05/20 14 Unknown COMPLETE BLOOD COUNT 8309725 MPV 10.3 fL 4 Unknown COMPLETE BLOOD COUNT 0986638 SUSIE % 70.0 % 4 Unknown COMPLETE BLOOD COUNT 8767518 LY % 16.4 % 4 Unknown COMPLETE BLOOD COUNT 5374166 MON % 9.2 % 4 Unknown COMPLETE BLOOD COUNT 8461687 EOS % 3.8 % 4 Unknown COMPLETE BLOOD COUNT 5806993 BASO % 0.6 % 4 Unknown COMPLETE BLOOD COUNT 1954299 RDW 13.4 % 4 Unknown COMPLETE BLOOD COUNT 8173821 ABS SUSIE 4.97 10e9/L 014 Unknown COMPLETE BLOOD COUNT 8928666 ABS LYMPH 1.16 10e9/L 014 Unknown COMPLETE BLOOD COUNT 5618086 ABS MONO 0.65 10e9/L 014 Unknown COMPLETE BLOOD COUNT 5948150 ABS EOS 0.27 10e9/L 014 Unknown COMPLETE BLOOD COUNT 3515969 ABS BASO 0.04 10e9/L 014 Unknown COMPLETE BLOOD COUNT 0546853 RDW-SD 43.3 fL 4 Unknown FREE T4 47944 FREE T4 1.02 NG/DL 08/05/2014 Unknown GFR CALC 3128672 GFR AA >60 ML/MIN 08/05/2014 Unknown GFR CALC 9797464 GFR NON-AA >60 ML/MIN 08/05/2014 Unknown GLYCOSYLATED HEMOGLOBIN TEST 06411 A1C HPLC 07226-5 7.7 % 1 10/05/2013 Unknown COMPREHENSIVE METABOLIC 59360 AST 19 U/L 2013 Unknown COMPREHENSIVE METABOLIC 89493 ALT 21 IU/L 2013 Unknown COMPREHENSIVE METABOLIC 80629 BUN 25 MG/DL 2013 Unknown COMPREHENSIVE METABOLIC 26637 ALBUMIN 4.6 GM/DL 2013 Unknown COMPREHENSIVE METABOLIC 81222 CHLORIDE 103 MMOL/L 08/05 Unknown COMPREHENSIVE METABOLIC 76370 BILI TOT 0.4 MG/DL 2013 Unknown COMPREHENSIVE METABOLIC 50017 ALK PHOS 45 U/L 2013 Unknown COMPREHENSIVE METABOLIC 52796 SODIUM 138 MMOL/L 08/05 Unknown COMPREHENSIVE METABOLIC 46204 CREATININE 1.01 MG/DL 07/25 Unknown COMPREHENSIVE METABOLIC 21418 CALCIUM 9.8 MG/DL 2013 Unknown COMPREHENSIVE METABOLIC 48993 POTASSIUM 4.7 MMOL/L 08/05 Unknown COMPREHENSIVE METABOLIC 53512 PROT TOT 7.0 GM/DL 2013 Unknown COMPREHENSIVE METABOLIC 24849 Glucose 145 MG/DL 2013 Unknown COMPREHENSIVE METABOLIC 57697 BICARB 27 MMOL/L 2013 Unknown COMPREHENSIVE METABOLIC 23949 ANION GAP 8 MEQ/L 2013 Unknown THYROID STIMULATING HORMONE 59707 TSH 1.922 uIU/ML 08/05/2014 Unknown LIPID GROUP 48634 HDL TEST 47 MG/DL 08/05/2014 Unknown LIPID GROUP 92646 TRIG 224 MG/DL 08/05/2014 Unknown LIPID GROUP 93717 TEST LDL 125 MG/DL 08/05/2014 Unknown LIPID GROUP 42832 CHOL 217 MG/DL 08/05/2014 Unknown LIPID GROUP 55820 RCHOL/HDL 4.62 RATIO 08/05/2014 Unknow n LIPID GROUP 69403 NON-HDL CH 170 MG/DL 08/05/2014 Unknow n MYCOPLASMA ANTIBODY, IFA [id number] MYCO G IFA 1:256 03/24 Unknown MYCOPLASMA ANTIBODY, IFA 37483A0 MYCO M IFA <1:10 03/24 Unknown MYCOPLASMA ANTIBODY, IFA [id number] MYCO INTER SEE BELO 03/24 Unknown COMPLETE BLOOD COUNT 5304432 WBC 8.3 10e9/L 04/09/20 13 Unknown COMPLETE BLOOD COUNT 1457664 RBC 4.61 10e12/L 2012 Unknown COMPLETE BLOOD COUNT 2935591 HGB 13.9 g/dL 3 Unknown COMPLETE BLOOD COUNT 6609905 HCT DET 41.2 % 3 Unknown COMPLETE BLOOD COUNT 1633296 MCV 89.4 fL 3 Unknown COMPLETE BLOOD COUNT 5546358 MCH 30.2 pg 3 Unknown COMPLETE BLOOD COUNT 1881969 MCHC 33.7 g/dL 3 Unknown COMPLETE BLOOD COUNT 7451219 PLT 249 10e9/L 04/09/20 13 Unknown COMPLETE BLOOD COUNT 9573409 MPV 9.8 fL 3 Unknown COMPLETE BLOOD COUNT 1782869 SUSIE % 65.9 % 3 Unknown COMPLETE BLOOD COUNT 2805989 LY % 19.8 % 3 Unknown COMPLETE BLOOD COUNT 7888729 MON % 10.8 % 3 Unknown COMPLETE BLOOD COUNT 8728892 EOS % 3.0 % 3 Unknown COMPLETE BLOOD COUNT 3994399 BASO % 0.5 % 3 Unknown COMPLETE BLOOD COUNT 4068563 RDW 14.0 % 3 Unknown COMPLETE BLOOD COUNT 3967919 ABS SUSIE 5.47 10e9/L 013 Unknown COMPLETE BLOOD COUNT 0414794 ABS LYMPH 1.64 10e9/L 013 Unknown COMPLETE BLOOD COUNT 6391318 ABS MONO 0.90 10e9/L 013 Unknown COMPLETE BLOOD COUNT 4730966 ABS EOS 0.25 10e9/L 013 Unknown COMPLETE BLOOD COUNT 4411126 ABS BASO 0.04 10e9/L 013 Unknown COMPLETE BLOOD COUNT 5351486 RDW-SD 45.0 fL 3 Unknown URIC ACID 00488 URIC ACID 5.3 MG/DL 02/12/2013 Unknown FREE T4 64351 FREE T4 1.09 NG/DL 02/11/2013 Unknown COMPLETE BLOOD COUNT 1858499 WBC 6.3 10e9/L 02/12/20 13 Unknown COMPLETE BLOOD COUNT 2360688 RBC 4.29 10e12/L 2012 Unknown COMPLETE BLOOD COUNT 3061221 HGB 13.1 g/dL 3 Unknown COMPLETE BLOOD COUNT 9992530 HCT DET 39.7 % 3 Unknown COMPLETE BLOOD COUNT 1276028 MCV 92.5 fL 3 Unknown COMPLETE BLOOD COUNT 7301202 MCH 30.5 pg 3 Unknown COMPLETE BLOOD COUNT 1162317 MCHC 33.0 g/dL 3 Unknown COMPLETE BLOOD COUNT 1636018 PLT 247 10e9/L 02/12/20 13 Unknown COMPLETE BLOOD COUNT 0231891 MPV 10.0 fL 3 Unknown COMPLETE BLOOD COUNT 1057672 SUSIE % 73.4 % 3 Unknown COMPLETE BLOOD COUNT 1453440 LY % 13.5 % 3 Unknown COMPLETE BLOOD COUNT 0212173 MON % 9.4 % 3 Unknown COMPLETE BLOOD COUNT 5213662 EOS % 2.9 % 3 Unknown COMPLETE BLOOD COUNT 8446086 BASO % 0.8 % 3 Unknown COMPLETE BLOOD COUNT 3976300 RDW 13.8 % 3 Unknown COMPLETE BLOOD COUNT 0354001 ABS SUSIE 4.62 10e9/L 013 Unknown COMPLETE BLOOD COUNT 8304808 ABS LYMPH 0.85 10e9/L 013 Unknown COMPLETE BLOOD COUNT 4603803 ABS MONO 0.59 10e9/L 013 Unknown COMPLETE BLOOD COUNT 3628698 ABS EOS 0.18 10e9/L 013 Unknown COMPLETE BLOOD COUNT 8195833 ABS BASO 0.05 10e9/L 013 Unknown COMPLETE BLOOD COUNT 8514634 RDW-SD 45.7 fL 3 Unknown HEMOGLOBIN A1C (GLYCOSYLATED) 6120554 A1C HPLC 54061-9 7.5 % 02/11/2013 Unknown THYROID STIMULATING HORMONE 18343 TSH 1.466 uIU/ML 02/11/2013 Unknown VITAMIN B 12 FOLIC ACID 15070|26083 VIT B 12 625 PG/ML 01/23 Unknown VITAMIN B 12 FOLIC ACID 05877|50979 FOLIC ACID 15.6 NG/ML Unknown COMPREHENSIVE METABOLIC 16704 AST 18 U/L 2012 Unknown COMPREHENSIVE METABOLIC 00001 ALT 21 IU/L 2012 Unknown COMPREHENSIVE METABOLIC 91014 BUN 25 MG/DL 2012 Unknown COMPREHENSIVE METABOLIC 80300 ALBUMIN 4.6 GM/DL 2012 Unknown COMPREHENSIVE METABOLIC 20578 CHLORIDE 103 MMOL/L 02/11 Unknown COMPREHENSIVE METABOLIC 74762 BILI TOT 0.3 MG/DL 2012 Unknown COMPREHENSIVE METABOLIC 74359 ALK PHOS 53 U/L 2012 Unknown COMPREHENSIVE METABOLIC 88750 SODIUM 136 MMOL/L 02/11 Unknown COMPREHENSIVE METABOLIC 79602 CREATININE 1.16 MG/DL 01/23 Unknown COMPREHENSIVE METABOLIC 38979 CALCIUM 10.0 MG/DL 02/11 Unknown COMPREHENSIVE METABOLIC 78129 POTASSIUM 4.9 MMOL/L 02/11 Unknown COMPREHENSIVE METABOLIC 38371 PROT TOT 7.0 GM/DL 2012 Unknown COMPREHENSIVE METABOLIC 46870 Glucose 192 MG/DL 2012 Unknown COMPREHENSIVE METABOLIC 57871 BICARB 26 MMOL/L 2012 Unknown COMPREHENSIVE METABOLIC 51799 ANION GAP 7 MEQ/L 2012 Unknown GFR CALC 6248091 GFR AA >60 ML/MIN 02/11/2013 Unknown GFR CALC 0355705 GFR NON-AA >60 ML/MIN 02/11/2013 Unknown C-REACTIVE PROTEIN (CRP) QUANT 28723 CRP 2.7 MG/DL 02/11/2013 Unknown GFR CALC 9495113 GFR AA >60 ML/MIN 09/19/2012 Unknown GFR CALC 8712653 GFR NON-AA >60 ML/MIN 09/19/2012 Unknown HEMOGLOBIN A1C (GLYCOSYLATED) 0034690 A1C HPLC 69327-6 7.2 % 09/19/2012 Unknown COMPREHENSIVE METABOLIC 88246 AST 13 U/L 2011 Unknown COMPREHENSIVE METABOLIC 58298 ALT 17 IU/L 2011 Unknown COMPREHENSIVE METABOLIC 22375 BUN 25 MG/DL 2011 Unknown COMPREHENSIVE METABOLIC 33297 ALBUMIN 4.5 GM/DL 2011 Unknown COMPREHENSIVE METABOLIC 04735 CHLORIDE 104 MMOL/L 09/19 Unknown COMPREHENSIVE METABOLIC 00449 BILI TOT 0.3 MG/DL 2011 Unknown COMPREHENSIVE METABOLIC 17006 ALK PHOS 43 U/L 2011 Unknown COMPREHENSIVE METABOLIC 24125 SODIUM 139 MMOL/L 09/19 Unknown COMPREHENSIVE METABOLIC 67789 CREATININE 1.10 MG/DL 08/25 Unknown COMPREHENSIVE METABOLIC 44664 CALCIUM 9.8 MG/DL 2011 Unknown COMPREHENSIVE METABOLIC 42854 POTASSIUM 4.8 MMOL/L 09/19 Unknown COMPREHENSIVE METABOLIC 14766 PROT TOT 6.5 GM/DL 2011 Unknown COMPREHENSIVE METABOLIC 30875 Glucose 148 MG/DL 2011 Unknown COMPREHENSIVE METABOLIC 97498 BICARB 25 MMOL/L 2011 Unknown COMPREHENSIVE METABOLIC 23149 ANION GAP 10 MEQ/L 2011 Unknown LIPID GROUP 18355 HDL TEST 44 MG/DL 09/19/2012 Unknown LIPID GROUP 92438 TRIG 318 MG/DL 09/19/2012 Unknown LIPID GROUP 33394 TEST LDL 100 MG/DL 09/19/2012 Unknown LIPID GROUP 15101 CHOL 208 MG/DL 09/19/2012 Unknown LIPID GROUP 87253 RCHOL/HDL 4.73 RATIO 09/19/2012 Unknow n FREE T4 72107 FREE T4 0.87 NG/DL 05/06/2012 Unknown GLYCOSYLATED HEMOGLOBIN TEST 49967 A1C HPLC 78655-5 6.4 % 0 05/06/2012 Unknown LIPID GROUP 75506 HDL TEST 44 MG/DL 05/06/2012 Unknown LIPID GROUP 37642 TRIG 177 MG/DL 05/06/2012 Unknown LIPID GROUP 23001 TEST LDL 113 MG/DL 05/06/2012 Unknown LIPID GROUP 82597 CHOL 192 MG/DL 05/06/2012 Unknown LIPID GROUP 46593 RCHOL/HDL 4.36 RATIO 05/06/2012 Unknow n THYROID STIMULATING HORMONE 39463 TSH 1.151 uIU/ML 05/06/2012 Unknown COMPLETE BLOOD COUNT 14708 WBC 7.8 10e9/L 05/06/20 12 Unknown COMPLETE BLOOD COUNT 62320 RBC 4.31 10e12/L 2011 Unknown COMPLETE BLOOD COUNT 47471 HGB 12.8 g/dL 2 Unknown COMPLETE BLOOD COUNT 22435 HCT DET 39.1 % 2 Unknown COMPLETE BLOOD COUNT 42643 MCV 90.7 fL 2 Unknown COMPLETE BLOOD COUNT 60516 MCH 29.7 pg 2 Unknown COMPLETE BLOOD COUNT 09548 MCHC 32.7 g/dL 2 Unknown COMPLETE BLOOD COUNT 24510 PLT 207 10e9/L 05/06/20 12 Unknown COMPLETE BLOOD COUNT 27472 MPV 10.2 fL 2 Unknown COMPLETE BLOOD COUNT 42457 SUSIE % 74.2 % 2 Unknown COMPLETE BLOOD COUNT 52015 LY % 12.8 % 2 Unknown COMPLETE BLOOD COUNT 61162 MON % 11.0 % 2 Unknown COMPLETE BLOOD COUNT 98986 EOS % 1.7 % 2 Unknown COMPLETE BLOOD COUNT 24299 BASO % 0.3 % 2 Unknown COMPLETE BLOOD COUNT 15218 RDW 13.7 % 2 Unknown COMPLETE BLOOD COUNT 28456 ABS SUSIE 5.79 10e9/L 012 Unknown COMPLETE BLOOD COUNT 91609 ABS LYMPH 1.00 10e9/L 012 Unknown COMPLETE BLOOD COUNT 96641 ABS MONO 0.86 10e9/L 012 Unknown COMPLETE BLOOD COUNT 92183 ABS EOS 0.13 10e9/L 012 Unknown COMPLETE BLOOD COUNT 34048 ABS BASO 0.02 10e9/L 012 Unknown COMPLETE BLOOD COUNT 76534 RDW-SD 44.4 fL 2 Unknown COMPREHENSIVE METABOLIC 17601 AST 13 U/L 2011 Unknown COMPREHENSIVE METABOLIC 15884 ALT 14 IU/L 2011 Unknown COMPREHENSIVE METABOLIC 32599 BUN 17 MG/DL 2011 Unknown COMPREHENSIVE METABOLIC 11209 ALBUMIN 4.5 GM/DL 2011 Unknown COMPREHENSIVE METABOLIC 76245 CHLORIDE 101 MMOL/L 05/06 Unknown COMPREHENSIVE METABOLIC 12024 BILI TOT 0.5 MG/DL 2011 Unknown COMPREHENSIVE METABOLIC 58537 ALK PHOS 42 U/L 2011 Unknown COMPREHENSIVE METABOLIC 04620 SODIUM 141 MMOL/L 05/06 Unknown COMPREHENSIVE METABOLIC 39762 CREATININE 1.02 MG/DL 04/24 Unknown COMPREHENSIVE METABOLIC 28814 CALCIUM 9.7 MG/DL 2011 Unknown COMPREHENSIVE METABOLIC 37365 POTASSIUM 4.6 MMOL/L 05/06 Unknown COMPREHENSIVE METABOLIC 65696 PROT TOT 6.5 GM/DL 2011 Unknown COMPREHENSIVE METABOLIC 17474 Glucose 139 MG/DL 2011 Unknown COMPREHENSIVE METABOLIC 82104 BICARB 29 MMOL/L 2011 Unknown COMPREHENSIVE METABOLIC 38579 ANION GAP 11 MEQ/L 2011 Unknown GFR CALC 5116834 GFR AA >60 ML/MIN 05/06/2012 Unknown GFR CALC 0227394 GFR NON-AA 54.0L ML/MIN 05/06/2012 Unkno wn GLYCOSYLATED HEMOGLOBIN TEST 25979 A1C HPLC 68147-1 6.6 % 1 09/30/2010 Unknown FREE T4 16057 FREE T4 1.00 NG/DL 07/26/2011 Unknown LIPID GROUP 16479 HDL TEST 40 MG/DL 07/26/2011 Unknown LIPID GROUP 44009 TRIG 136 MG/DL 07/26/2011 Unknown LIPID GROUP 04542 TEST LDL 126 MG/DL 07/26/2011 Unknown LIPID GROUP 03339 CHOL 193 MG/DL 07/26/2011 Unknown LIPID GROUP 36370 RCHOL/HDL 4.83 RATIO 07/26/2011 Unknow n COMPREHENSIVE METABOLIC 78619 AST 15 U/L 2010 Unknown COMPREHENSIVE METABOLIC 65113 ALT 13 IU/L 2010 Unknown COMPREHENSIVE METABOLIC 29035 BUN 17 MG/DL 2010 Unknown COMPREHENSIVE METABOLIC 03110 ALBUMIN 4.4 GM/DL 2010 Unknown COMPREHENSIVE METABOLIC 08935 CHLORIDE 102 MMOL/L 07/26 Unknown COMPREHENSIVE METABOLIC 43635 BILI TOT 0.5 MG/DL 2010 Unknown COMPREHENSIVE METABOLIC 83089 ALK PHOS 54 U/L 2010 Unknown COMPREHENSIVE METABOLIC 45704 SODIUM 138 MMOL/L 07/26 Unknown COMPREHENSIVE METABOLIC 82968 CREATININE 0.95 MG/DL 10/2010 Unknown COMPREHENSIVE METABOLIC 11059 CALCIUM 9.3 MG/DL 2010 Unknown COMPREHENSIVE METABOLIC 04392 POTASSIUM 4.3 MMOL/L 07/26 Unknown COMPREHENSIVE METABOLIC 23052 PROT TOT 6.7 GM/DL 2010 Unknown COMPREHENSIVE METABOLIC 00672 Glucose 116 MG/DL 2010 Unknown COMPREHENSIVE METABOLIC 81557 BICARB 28 MMOL/L 2010 Unknown COMPREHENSIVE METABOLIC 80952 ANION GAP 8 MEQ/L 2010 Unknown PSA EQUIMOLAR JONATAN 42547 PSA EQ 1.01 NG/ML 1 Unknown COMPLETE BLOOD COUNT 03611 WBC 6.4 10e9/L 07/26/20 11 Unknown COMPLETE BLOOD COUNT 83040 RBC 4.43 10e12/L 2010 Unknown COMPLETE BLOOD COUNT 64537 HGB 13.2 g/dL 1 Unknown COMPLETE BLOOD COUNT 76894 HCT DET 39.3 % 1 Unknown COMPLETE BLOOD COUNT 88348 MCV 88.7 fL 1 Unknown COMPLETE BLOOD COUNT 20911 MCH 29.8 pg 1 Unknown COMPLETE BLOOD COUNT 29248 MCHC 33.6 g/dL 1 Unknown COMPLETE BLOOD COUNT 65145 PLT 226 10e9/L 07/26/20 11 Unknown COMPLETE BLOOD COUNT 64023 MPV 9.9 fL 1 Unknown COMPLETE BLOOD COUNT 24035 SUSIE % 65.4 % 1 Unknown COMPLETE BLOOD COUNT 69224 LY % 19.7 % 1 Unknown COMPLETE BLOOD COUNT 00493 MON % 10.8 % 1 Unknown COMPLETE BLOOD COUNT 32373 EOS % 3.6 % 1 Unknown COMPLETE BLOOD COUNT 90936 BASO % 0.5 % 1 Unknown COMPLETE BLOOD COUNT 87451 RDW 13.2 % 1 Unknown COMPLETE BLOOD COUNT 08384 ABS SUSIE 4.19 10e9/L 011 Unknown COMPLETE BLOOD COUNT 73830 ABS LYMPH 1.26 10e9/L 011 Unknown COMPLETE BLOOD COUNT 85803 ABS MONO 0.69 10e9/L 011 Unknown COMPLETE BLOOD COUNT 03870 ABS EOS 0.23 10e9/L 11/02/2 011 Unknown COMPLETE BLOOD COUNT 92019 ABS BASO 0.03 10e9/L 011 Unknown COMPLETE BLOOD COUNT 37001 RDW-SD 41.7 fL 1 Unknown THYROID STIMULATING HORMONE 06685 TSH 1.345 uIU/ML 07/26/2011 Unknown GFR CALC [id number] GFR AA >60 ML/MIN 07/26/2011 Unknown GFR CALC [id number] GFR NON-AA >60 ML/MIN 07/26/2011 Unknown BRAIN NATRIURETIC PEPTIDE(BNP) 06640 BRAIN PEP 23 pg/mL 01/19/2011 Unknown CANCEL [id number] CANCEL FOOTNOTE 01/18/2011 Unknown TESTOSTERONE TOTAL 08397 TESTOS TO 138 NG/DL 12/19/2010 Unknown COMPLETE BLOOD COUNT 08545 WBC 8.4 10e9/L 12/08/19 11 Unknown COMPLETE BLOOD COUNT 89649 RBC 4.40 10e12/L 2010 Unknown COMPLETE BLOOD COUNT 04568 HGB 13.3 g/dL 1 Unknown COMPLETE BLOOD COUNT 79842 HCT DET 39.8 % 1 Unknown COMPLETE BLOOD COUNT 07314 MCV 90.5 fL 1 Unknown COMPLETE BLOOD COUNT 32638 MCH 30.2 pg 1 Unknown COMPLETE BLOOD COUNT 83896 MCHC 33.4 g/dL 1 Unknown COMPLETE BLOOD COUNT 39003 PLT 201 10e9/L 12/08/19 11 Unknown COMPLETE BLOOD COUNT 81030 MPV 10.6 fL 1 Unknown COMPLETE BLOOD COUNT 08384 SUSIE % 72.5 % 1 Unknown COMPLETE BLOOD COUNT 40637 LY % 14.8 % 1 Unknown COMPLETE BLOOD COUNT 29927 MON % 10.6 % 1 Unknown COMPLETE BLOOD COUNT 46475 EOS % 1.7 % 1 Unknown COMPLETE BLOOD COUNT 35344 BASO % 0.4 % 1 Unknown COMPLETE BLOOD COUNT 92864 RDW 13.7 % 1 Unknown COMPLETE BLOOD COUNT 09064 ABS SUSIE 6.09 10e9/L 011 Unknown COMPLETE BLOOD COUNT 14478 ABS LYMPH 1.24 10e9/L 011 Unknown COMPLETE BLOOD COUNT 53941 ABS MONO 0.89 10e9/L 03/16/2 011 Unknown COMPLETE BLOOD COUNT 00766 ABS EOS 0.14 10e9/L 011 Unknown COMPLETE BLOOD COUNT 30974 ABS BASO 0.03 10e9/L 011 Unknown COMPLETE BLOOD COUNT 51727 RDW-SD 44.0 fL 1 Unknown LIPID GROUP 15836 HDL TEST 40 MG/DL 12/07/2010 Unknown LIPID GROUP 34166 TRIG 383 MG/DL 12/07/2010 Unknown LIPID GROUP 16552 TEST LDL 82 MG/DL 12/07/2010 Unknown LIPID GROUP 10353 CHOL 199 MG/DL 12/07/2010 Unknown LIPID GROUP 58457 RCHOL/HDL 4.98 RATIO 12/07/2010 Unknow n GFR CALC [id number] GFR AA >60 ML/MIN 12/07/2010 Unknown GFR CALC [id number] GFR NON-AA >60 ML/MIN 12/07/2010 Unknown COMPREHENSIVE METABOLIC 32918 AST 29 U/L 2010 Unknown COMPREHENSIVE METABOLIC 67527 ALT 39 IU/L 2010 Unknown COMPREHENSIVE METABOLIC 64884 BUN 17 MG/DL 2010 Unknown COMPREHENSIVE METABOLIC 81977 ALBUMIN 4.9 GM/DL 2010 Unknown COMPREHENSIVE METABOLIC 13225 CHLORIDE 100 MMOL/L 12/07 Unknown COMPREHENSIVE METABOLIC 58292 BILI TOT 0.3 MG/DL 2010 Unknown COMPREHENSIVE METABOLIC 57747 ALK PHOS 53 U/L 2010 Unknown COMPREHENSIVE METABOLIC 83995 SODIUM 137 MMOL/L 12/07 Unknown COMPREHENSIVE METABOLIC 57633 CREATININE 0.98 MG/DL 11/22 Unknown COMPREHENSIVE METABOLIC 34717 CALCIUM 9.5 MG/DL 2010 Unknown COMPREHENSIVE METABOLIC 75029 POTASSIUM 4.3 MMOL/L 12/07 Unknown COMPREHENSIVE METABOLIC 85753 PROT TOT 6.6 GM/DL 2010 Unknown COMPREHENSIVE METABOLIC 24508 Glucose 176 MG/DL 2010 Unknown COMPREHENSIVE METABOLIC 96704 BICARB 28 MMOL/L 2010 Unknown COMPREHENSIVE METABOLIC 53185 ANION GAP 9 MEQ/L 2010 Unknown PSA EQUIMOLAR JONATAN 43051 PSA EQ 0.65 NG/ML 1 Unknown HEMOGLOBIN A1C (GLYCOSYLATED) 34743 A1C HPLC 03540-4 6.9 % 12/07/2010 Unknown Procedures Procedure Codes Date THER/PROPH/DIAG INJ SC/IM CPT-4: 92544 12/25/2019 METHYLPREDNISOLONE INJECTION CPT-4: J2930 12/25/2019 FLU VACC PRSV FREE INC ANTIG 65 AND OLDER CPT-4: 69801 08/07/2019 FLU VACC PRSV FREE INC ANTIG 65 AND OLDER CPT-4: 43550 08/07/2019 ADMIN INFLUENZA VIRUS VAC CPT-4: G0008 08/07/2019 THER/PROPH/DIAG INJ SC/IM CPT-4: 16958 07/14/2019 METHYLPREDNISOLONE INJECTION CPT-4: J2930 07/14/2019 ROUTINE VENIPUNCTURE CPT-4: 68758 06/17/2019 ASSAY THYROID STIM HORMONE CPT-4: 86423 06/17/2019 COMPREHEN METABOLIC PANEL CPT-4: 63700 06/17/2019 COMPLETE CBC W/AUTO DIFF WBC CPT-4: 66598 06/17/2019 ASSAY OF IRON CPT-4: 19382 06/17/2019 VITAMIN B-12 CPT-4: 30508 06/17/2019 RBC SED RATE AUTOMATED CPT-4: 81503 06/17/2019 THER/PROPH/DIAG INJ SC/IM CPT-4: 28575 06/10/2019 THER/PROPH/DIAG INJ SC/IM CPT-4: 13778 06/02/2019 THER/PROPH/DIAG INJ SC/IM CPT-4: 91176 05/27/2019 THER/PROPH/DIAG INJ SC/IM CPT-4: 93473 05/12/2019 ROUTINE VENIPUNCTURE CPT-4: 22817 05/08/2019 COMPREHEN METABOLIC PANEL CPT-4: 67767 05/08/2019 COMPLETE CBC W/AUTO DIFF WBC CPT-4: 56671 05/08/2019 A1C HPLC CPT-4: 54963 05/08/2019 VITAMIN D TOTAL (25 HYDROXY) CPT-4: 39722 05/08/2019 ASSAY OF IRON CPT-4: 86732 05/08/2019 ASSAY OF FERRITIN CPT-4: 63478 05/08/2019 VITAMIN B-12 CPT-4: 44275 05/08/2019 THER/PROPH/DIAG INJ SC/IM CPT-4: 25496 03/21/2019 METHYLPREDNISOLONE INJECTION CPT-4: J2930 03/21/2019 THER/PROPH/DIAG INJ SC/IM CPT-4: 47301 03/13/2019 METHYLPREDNISOLONE INJECTION CPT-4: J2930 03/13/2019 THER/PROPH/DIAG INJ SC/IM CPT-4: 29723 12/25/2018 METHYLPREDNISOLONE INJECTION CPT-4: J2930 12/25/2018 ROUTINE VENIPUNCTURE CPT-4: 48901 12/09/2018 ASSAY OF FREE THYROXINE CPT-4: 43755 12/09/2018 ASSAY THYROID STIM HORMONE CPT-4: 51403 12/09/2018 COMPREHEN METABOLIC PANEL CPT-4: 12974 12/09/2018 COMPLETE CBC W/AUTO DIFF WBC CPT-4: 16637 12/09/2018 LIPID PANEL CPT-4: 42168 12/09/2018 A1C HPLC CPT-4: 36059 12/09/2018 PRESCRIP TRANSMIT VIA ERX SY CPT-4: G8553 08/21/2018 PRESCRIP TRANSMIT VIA ERX SY CPT-4: G8553 08/07/2018 THER/PROPH/DIAG INJ SC/IM CPT-4: 35848 05/23/2018 METHYLPREDNISOLONE INJECTION CPT-4: J2930 05/23/2018 PRESCRIP TRANSMIT VIA ERX SY CPT-4: G8553 05/02/2018 THER/PROPH/DIAG INJ SC/IM CPT-4: 82381 04/29/2018 METHYLPREDNISOLONE INJECTION CPT-4: J2930 04/29/2018 DEXAMETHASONE SODIUM PHOS CPT-4: J1100 04/22/2018 THER/PROPH/DIAG INJ SC/IM CPT-4: 32717 04/22/2018 TRIAMCINOLONE ACET INJ NOS CPT-4: J3301 04/22/2018 PRESCRIP TRANSMIT VIA ERX SY CPT-4: G8553 04/22/2018 PRESCRIP TRANSMIT VIA ERX SY CPT-4: G8553 01/23/2018 URINALYSIS NONAUTO W/O SCOPE CPT-4: 21635 01/02/2018 URINE CULTURE/ COLONY COUNT CPT-4: 89354 01/02/2018 PRESCRIP TRANSMIT VIA ERX SY CPT-4: G8553 01/02/2018 PRESCRIP TRANSMIT VIA ERX SY CPT-4: G8553 12/28/2017 PRESCRIP TRANSMIT VIA ERX SY CPT-4: G8553 12/21/2017 CEFTRIAXONE SODIUM INJECTION CPT-4: J0696 12/17/2017 THER/PROPH/DIAG INJ SC/IM CPT-4: 38860 12/17/2017 THER/PROPH/DIAG INJ SC/IM CPT-4: 76066 12/17/2017 TRIAMCINOLONE ACET INJ NOS CPT-4: J3301 12/17/2017 PRESCRIP TRANSMIT VIA ERX SY CPT-4: G8553 12/17/2017 DRAIN/INJECT JOINT/BURSA CPT-4: 36331 12/11/2017 TRIAMCINOLONE ACET INJ NOS CPT-4: J3301 12/11/2017 DEXAMETHASONE SODIUM PHOS CPT-4: J1100 12/11/2017 DESTRUCT PREMALG LESION (Cryosurgery) CPT-4: 47609 PRESCRIP TRANSMIT VIA ERX SY CPT-4: G8553 10/17/2017 DEXAMETHASONE SODIUM PHOS CPT-4: J1100 08/02/2017 THER/PROPH/DIAG INJ SC/IM CPT-4: 05132 08/02/2017 TRIAMCINOLONE ACET INJ NOS CPT-4: J3301 08/02/2017 PRESCRIP TRANSMIT VIA ERX SY CPT-4: G8553 08/02/2017 PNEUMOCOCCAL VACC 23 OLIVIA IM CPT-4: 28627 07/24/2017 ADMIN PNEUMOCOCCAL VACCINE CPT-4: G0009 07/24/2017 ALBUTEROL NON-COMP UNIT CPT-4: J7613 07/02/2017 AIRWAY INHALATION TREATMENT CPT-4: 06365 07/02/2017 THER/PROPH/DIAG INJ SC/IM CPT-4: 26684 07/02/2017 METHYLPREDNISOLONE INJECTION CPT-4: J2930 07/02/2017 PRESCRIP TRANSMIT VIA ERX SY CPT-4: G8553 05/29/2017 ROUTINE VENIPUNCTURE CPT-4: 47667 04/17/2017 ASSAY OF IRON CPT-4: 48605 04/17/2017 VITAMIN B-12 CPT-4: 27756 04/17/2017 COMPREHEN METABOLIC PANEL CPT-4: 42169 04/17/2017 COMPLETE CBC W/AUTO DIFF WBC CPT-4: 77766 04/17/2017 ASSAY OF FERRITIN CPT-4: 34084 04/17/2017 ASSAY THYROID STIM HORMONE CPT-4: 80333 04/17/2017 A1C HPLC CPT-4: 76964 04/17/2017 DRAIN/INJECT JOINT/BURSA CPT-4: 16404 02/01/2017 TRIAMCINOLONE ACET INJ NOS CPT-4: J3301 02/01/2017 DEXAMETHASONE SODIUM PHOS CPT-4: J1100 02/01/2017 ROUTINE VENIPUNCTURE CPT-4: 76222 12/27/2016 COMPLETE CBC W/AUTO DIFF WBC CPT-4: 21756 12/27/2016 ROUTINE VENIPUNCTURE CPT-4: 04936 12/21/2016 COMPLETE CBC W/AUTO DIFF WBC CPT-4: 21227 12/21/2016 ROUTINE VENIPUNCTURE CPT-4: 25589 12/12/2016 COMPLETE CBC W/AUTO DIFF WBC CPT-4: 54122 12/12/2016 PRESCRIP TRANSMIT VIA ERX SY CPT-4: G8553 10/31/2016 PRESCRIP TRANSMIT VIA ERX SY CPT-4: G8553 10/03/2016 PRESCRIP TRANSMIT VIA ERX SY CPT-4: G8553 09/04/2016 DESTRUCT PREMALG LESION (Cryosurgery) CPT-4: 03056 DESTRUCT PREMALG LES 2-14 CPT-4: 97820 08/22/2016 PRESCRIP TRANSMIT VIA ERX SY CPT-4: G8553 08/10/2016 PRESCRIP TRANSMIT VIA ERX SY CPT-4: G8553 07/06/2016 FLU VACC PRSV FREE INC ANTIG 65 AND OLDER CPT-4: 54152 06/13/2016 PNEUMOCOCCAL VACC 13 OLIVIA IM CPT-4: 39653 06/13/2016 ADMIN INFLUENZA VIRUS VAC CPT-4: G0008 06/13/2016 ADMIN PNEUMOCOCCAL VACCINE CPT-4: G0009 06/13/2016 CERUM REMOVAL CPT-4: 74931 04/05/2016 PRESCRIP TRANSMIT VIA ERX SY CPT-4: G8553 04/03/2016 ROUTINE VENIPUNCTURE CPT-4: 05280 03/06/2016 ASSAY OF FREE THYROXINE CPT-4: 60255 03/06/2016 ASSAY THYROID STIM HORMONE CPT-4: 15242 03/06/2016 COMPREHEN METABOLIC PANEL CPT-4: 16651 03/06/2016 COMPLETE CBC W/AUTO DIFF WBC CPT-4: 61962 03/06/2016 LIPID PANEL CPT-4: 35763 03/06/2016 ASSAY OF PSA TOTAL CPT-4: 33411 03/06/2016 TESTOSTERONE TOTAL - MALE CPT-4: 11755 03/06/2016 A1C HPLC CPT-4: 04883 03/06/2016 ASSAY OF IRON CPT-4: 77082 03/06/2016 VITAMIN B-12 CPT-4: 68165 03/06/2016 INJ TENDON SHEATH/LIGAMENT CPT-4: 85937 02/17/2016 TRIAMCINOLONE ACET INJ NOS CPT-4: J3301 02/17/2016 DEXAMETHASONE SODIUM PHOS CPT-4: J1100 02/17/2016 PRESCRIP TRANSMIT VIA ERX SY CPT-4: G8553 01/31/2016 PRESCRIP TRANSMIT VIA ERX SY CPT-4: G8553 12/30/2015 PRESCRIP TRANSMIT VIA ERX SY CPT-4: G8553 12/06/2015 PRESCRIP TRANSMIT VIA ERX SY CPT-4: G8553 11/15/2015 PPPS, subseq visit CPT-4: G0439 10/05/2015 MICROALBUMIN QUANTITATIVE CPT-4: 04143 10/05/2015 PROTEIN/CREAT URINE WITH RATIO CPT-4: 48009|85338 6 ROUTINE VENIPUNCTURE CPT-4: 75242 07/01/2015 ASSAY OF FREE THYROXINE CPT-4: 74241 07/01/2015 ASSAY THYROID STIM HORMONE CPT-4: 98280 07/01/2015 COMPLETE CBC W/AUTO DIFF WBC CPT-4: 73021 07/01/2015 LIPID PANEL CPT-4: 57378 07/01/2015 ASSAY OF PSA TOTAL CPT-4: 37681 07/01/2015 AEROBIC WOUND CULTURE & STN CPT-4: 88086 06/28/2015 PRESCRIP TRANSMIT VIA ERX SY CPT-4: G8553 06/28/2015 AEROBIC WOUND CULTURE & STN CPT-4: 65408 06/03/2015 PRESCRIP TRANSMIT VIA ERX SY CPT-4: G8553 06/03/2015 ROUTINE VENIPUNCTURE CPT-4: 34647 06/01/2015 COMPREHEN METABOLIC PANEL CPT-4: 16078 06/01/2015 A1C HPLC CPT-4: 81640 06/01/2015 COMPREHEN METABOLIC PANEL CPT-4: 17514 02/25/2015 A1C HPLC CPT-4: 07259 02/25/2015 DESTRUCT PREMALG LESION (Cryosurgery) CPT-4: 54028 PROTEIN/CREAT URINE WITH RATIO CPT-4: 61114|24107 5 MICROALBUMIN QUANTITATIVE CPT-4: 47439 10/27/2014 INFLUENZA ASSAY W/OPTIC CPT-4: 64168 10/21/2014 PRESCRIP TRANSMIT VIA ERX SY CPT-4: G8553 10/06/2014 PRESCRIP TRANSMIT VIA ERX SY CPT-4: G8553 09/21/2014 PRESCRIP TRANSMIT VIA ERX SY CPT-4: G8553 09/02/2014 MICROALBUMIN QUANTITATIVE CPT-4: 04971 08/27/2014 PROTEIN/CREAT URINE WITH RATIO CPT-4: 81038|87677 4 PPPS, subseq visit CPT-4: G0439 08/10/2014 ROUTINE VENIPUNCTURE CPT-4: 74116 08/05/2014 ASSAY OF FREE THYROXINE CPT-4: 87170 08/05/2014 ASSAY THYROID STIM HORMONE CPT-4: 99923 08/05/2014 COMPREHEN METABOLIC PANEL CPT-4: 47997 08/05/2014 COMPLETE CBC W/AUTO DIFF WBC CPT-4: 80836 08/05/2014 LIPID PANEL CPT-4: 96756 08/05/2014 A1C HPLC CPT-4: 42525 08/05/2014 FLUZONE, 5ML (Medicare) CPT-4: Q2038 08/05/2014 ADMIN INFLUENZA VIRUS VAC CPT-4: G0008 08/05/2014 METHYLPREDNISOLONE 40 MG INJ CPT-4: J1030 12/16/2013 TRIAMCINOLONE ACET INJ NOS CPT-4: J3301 12/16/2013 DRAIN/INJECT JOINT/BURSA CPT-4: 93465 12/16/2013 PRESCRIP TRANSMIT VIA ERX SY CPT-4: G8553 10/09/2013 THER/PROPH/DIAG INJ SC/IM CPT-4: 49247 09/18/2013 METHYLPREDNISOLONE 40 MG INJ CPT-4: J1030 09/18/2013 TRIAMCINOLONE ACET INJ NOS CPT-4: J3301 09/18/2013 PRESCRIP TRANSMIT VIA ERX SY CPT-4: G8553 09/18/2013 PRESCRIP TRANSMIT VIA ERX SY CPT-4: G8553 08/13/2013 ROUTINE VENIPUNCTURE CPT-4: 85327 06/25/2013 ASSAY OF FREE THYROXINE CPT-4: 41800 06/25/2013 ASSAY THYROID STIM HORMONE CPT-4: 67963 06/25/2013 COMPREHEN METABOLIC PANEL CPT-4: 71753 06/25/2013 COMPLETE CBC W/AUTO DIFF WBC CPT-4: 89111 06/25/2013 LIPID PANEL CPT-4: 67814 06/25/2013 A1C GLYCOSYLATED HEMOGLOBIN TEST CPT-4: 75526 013 ROUTINE VENIPUNCTURE CPT-4: 33519 04/09/2013 COMPLETE CBC W/AUTO DIFF WBC CPT-4: 26198 04/09/2013 MYCOPLASMA ANTIBODY, IFA CPT-4: 57707W5 04/09/2013 ROUTINE VENIPUNCTURE CPT-4: 66748 02/11/2013 ASSAY OF FREE THYROXINE CPT-4: 65311 02/11/2013 ASSAY THYROID STIM HORMONE CPT-4: 36765 02/11/2013 COMPREHEN METABOLIC PANEL CPT-4: 19800 02/11/2013 COMPLETE CBC W/AUTO DIFF WBC CPT-4: 26852 02/11/2013 VITAMIN B 12 FOLIC ACID CPT-4: 78757|66526 02/11/2013 C-REACTIVE PROTEIN CPT-4: 58811 02/11/2013 A1C GLYCOSYLATED HEMOGLOBIN TEST CPT-4: 75418 013 ASSAY OF BLOOD/URIC ACID CPT-4: 68703 02/11/2013 CEFTRIAXONE SODIUM INJECTION CPT-4: J0696 01/31/2013 THER/PROPH/DIAG INJ SC/IM CPT-4: 65626 01/31/2013 THER/PROPH/DIAG INJ SC/IM CPT-4: 25062 01/31/2013 METHYLPREDNISOLONE 40 MG INJ CPT-4: J1030 01/31/2013 TRIAMCINOLONE ACET INJ NOS CPT-4: J3301 01/31/2013 ROUTINE VENIPUNCTURE CPT-4: 35863 09/19/2012 COMPREHEN METABOLIC PANEL CPT-4: 88308 09/19/2012 LIPID PANEL CPT-4: 33098 09/19/2012 A1C GLYCOSYLATED HEMOGLOBIN TEST CPT-4: 71064 012 PNEUMOCOCCAL VACC 23 OLIVIA IM CPT-4: 55407 07/10/2012 FLUZONE, 5ML (Medicare) CPT-4: Q2038 07/10/2012 ADMIN INFLUENZA VIRUS VAC CPT-4: G0008 07/10/2012 ADMIN PNEUMOCOCCAL VACCINE CPT-4: G0009 07/10/2012 ROUTINE VENIPUNCTURE CPT-4: 88615 05/06/2012 ASSAY OF FREE THYROXINE CPT-4: 44222 05/06/2012 ASSAY THYROID STIM HORMONE CPT-4: 54630 05/06/2012 COMPREHEN METABOLIC PANEL CPT-4: 10086 05/06/2012 COMPLETE CBC W/AUTO DIFF WBC CPT-4: 71526 05/06/2012 LIPID PANEL CPT-4: 29778 05/06/2012 A1C GLYCOSYLATED HEMOGLOBIN TEST CPT-4: 25711 012 IMMUNIZATION ADMIN CPT-4: 63175 02/05/2012 FLUZONE, 5ML (Medicare) CPT-4: Q2038 08/10/2011 ADMIN INFLUENZA VIRUS VAC CPT-4: G0008 08/10/2011 ROUTINE VENIPUNCTURE CPT-4: 92993 07/26/2011 ASSAY OF FREE THYROXINE CPT-4: 98309 07/26/2011 ASSAY THYROID STIM HORMONE CPT-4: 10927 07/26/2011 COMPREHEN METABOLIC PANEL CPT-4: 48925 07/26/2011 COMPLETE CBC W/AUTO DIFF WBC CPT-4: 16680 07/26/2011 LIPID PANEL CPT-4: 40753 07/26/2011 A1C GLYCOSYLATED HEMOGLOBIN TEST CPT-4: 32811 011 ASSAY OF PSA TOTAL CPT-4: 09601 07/26/2011 ROUTINE VENIPUNCTURE CPT-4: 54589 01/19/2011 ASSAY OF NATRIURETIC PEPTIDE CPT-4: 39624 01/19/2011 THER/PROPH/DIAG INJ SC/IM CPT-4: 23306 01/19/2011 CEFTRIAXONE SODIUM INJECTION CPT-4: J0696 01/19/2011 METHYLPREDNISOLONE INJECTION CPT-4: J2930 01/19/2011 THER/PROPH/DIAG INJ SC/IM CPT-4: 38062 01/19/2011 THER/PROPH/DIAG INJ SC/IM CPT-4: 01172 01/18/2011 CEFTRIAXONE SODIUM INJECTION CPT-4: J0696 01/18/2011 METHYLPREDNISOLONE INJECTION CPT-4: J2930 01/18/2011 THER/PROPH/DIAG INJ SC/IM CPT-4: 39466 01/18/2011 THER/PROPH/DIAG INJ SC/IM CPT-4: 37765 12/21/2010 TESTOSTERONE CYPIONAT 100 MG CPT-4: J1070 12/21/2010 ROUTINE VENIPUNCTURE CPT-4: 05198 12/19/2010 TESTOSTERONE TOTAL - MALE CPT-4: 79510 12/19/2010 ROUTINE VENIPUNCTURE CPT-4: 78862 12/07/2010 COMPLETE CBC W/AUTO DIFF WBC CPT-4: 46654 12/07/2010 COMPREHEN METABOLIC PANEL CPT-4: 24827 12/07/2010 LIPID PANEL CPT-4: 03371 12/07/2010 A1C GLYCOSYLATED HEMOGLOBIN TEST CPT-4: 85314 011 ASSAY OF PSA TOTAL CPT-4: 44653 12/07/2010 ROUTINE VENIPUNCTURE CPT-4: 69192 04/05/2010 PRESCRIP TRANSMIT VIA ERX SY CPT-4: G8553 04/05/2010 ROUTINE VENIPUNCTURE CPT-4: 35764 01/13/2010 METHYLPREDNISOLONE INJECTION CPT-4: J2930 12/22/2009 THER/PROPH/DIAG INJ SC/IM CPT-4: 04914 12/22/2009 THER/PROPH/DIAG INJ SC/IM CPT-4: 55325 12/22/2009 CEFTRIAXONE SODIUM INJECTION CPT-4: J0696 12/22/2009 ROUTINE VENIPUNCTURE CPT-4: 92513 12/22/2009 COMPLETE CBC W/AUTO DIFF WBC CPT-4: 39547 12/22/2009 RBC SED RATE, AUTOMATED CPT-4: 75263 12/22/2009 RPR FE/E/EN/L/M 20.1-30.0 CM CPT-4: 39032 12/22/2009 EKG FOR INITIAL PREVENT EXAM CPT-4: G0403 12/22/2009 THER/PROPH/DIAG INJ SC/IM CPT-4: 10600 12/16/2009 KETOROLAC TROMETHAMINE INJ CPT-4: J1885 12/16/2009 Vital Signs Date Vital 12/25/2019 Blood Pressure 1: 160/67 Code: 8480-6 Heart Rate 1: 75 bpm Respiratory Rate: 20 bpm SpO2: 98% Temperature: 36.8 (C) / 98.2 (F) We ight: 199 lbs 11/12/2019 Blood Pressure 1: 142/66 Code: 8480-6 Heart Rate 1: 84 bpm Respiratory Rate: 24 bpm SpO2: 90% Temperature: 36.6 (C) / 97.9 (F) We ight: 189 lbs 09/11/2019 Blood Pressure 1: 130/52 Code: 8480-6 Heart Rate 1: 68 bpm Respiratory Rate: 32 bpm SpO2: 94% Temperature: 36.8 (C) / 98.2 (F) We ight: 182 lbs 08/07/2019 Blood Pressure 1: 122/58 Code: 8480-6 Heart Rate 1: 93 bpm SpO2: 94% Temperature: 37.3 (C) / 99.1 (F) Weight: 183 lbs 07/14/2019 Blood Pressure 1: 142/62 Code: 8480-6 Heart Rate 1: 102 bpm SpO2: 94% Temperature: 36.6 (C) / 97.9 (F) Weight: 187 lbs 07/01/2019 Blood Pressure 1: 124/52 Code: 8480-6 Heart Rate 1: 88 bpm Respiratory Rate: 28 bpm SpO2: 94% Temperature: 37.2 (C) / 99.0 (F) We ight: 190 lbs 06/24/2019 Blood Pressure 1: 126/50 Code: 8480-6 Heart Rate 1: 80 bpm Respiratory Rate: 22 bpm SpO2: 93% Temperature: 37.2 (C) / 98.9 (F) We ight: 188 lbs 06/17/2019 Blood Pressure 1: 120/52 Code: 8480-6 Heart Rate 1: 76 bpm SpO2: 98% Temperature: 36.4 (C) / 97.5 (F) Weight: 191 lbs 06/10/2019 Weight: 192 lbs 05/08/2019 Blood Pressure 1: 142/60 Code: 8480-6 Heart Rate 1: 76 bpm Respiratory Rate: 22 bpm SpO2: 94% Temperature: 36.7 (C) / 98.1 (F) We ight: 197 lbs 04/07/2019 Blood Pressure 1: 142/64 Code: 8480-6 Heart Rate 1: 92 bpm Respiratory Rate: 28 bpm SpO2: 92% Temperature: 37.6 (C) / 99.6 (F) We ight: 203 lbs 03/24/2019 Blood Pressure 1: 130/60 Code: 8480-6 Heart Rate 1: 80 bpm Respiratory Rate: 24 bpm SpO2: 94% Temperature: 36.7 (C) / 98.0 (F) We ight: 205 lbs 03/21/2019 Blood Pressure 1: 140/60 Code: 8480-6 Heart Rate 1: 80 bpm Respiratory Rate: 26 bpm SpO2: 95% Temperature: 36.3 (C) / 97.4 (F) We ight: 204 lbs 03/13/2019 Blood Pressure 1: 138/60 Code: 8480-6 Heart Rate 1: 96 bpm Respiratory Rate: 26 bpm SpO2: 94% Temperature: 37.0 (C) / 98.6 (F) 03/10/2019 Blood Pressure 1: 132/68 Code: 8480-6 Heart Rate 1: 84 bpm Respiratory Rate: 24 bpm SpO2: 92% Temperature: 37.3 (C) / 99.2 (F) We ight: 206 lbs 02/26/2019 Blood Pressure 1: 128/64 Code: 8480-6 Heart Rate 1: 88 bpm Respiratory Rate: 24 bpm SpO2: 94% Temperature: 36.7 (C) / 98.1 (F) We ight: 212 lbs 02/13/2019 Blood Pressure 1: 148/68 Code: 8480-6 Heart Rate 1: 100 bpm Respiratory Rate: 28 bpm SpO2: 94% Temperature: 36.9 (C) / 98.4 (F) We ight: 211 lbs 01/14/2019 Blood Pressure 1: 124/68 Code: 8480-6 Heart Rate 1: 96 bpm Respiratory Rate: 24 bpm SpO2: 93% Temperature: 36.6 (C) / 97.9 (F) We ight: 208 lbs 12/25/2018 Blood Pressure 1: 138/56 Code: 8480-6 Heart Rate 1: 82 bpm Respiratory Rate: 24 bpm SpO2: 86% Temperature: 35.6 (C) / 96.0 (F) We ight: 203 lbs 12/09/2018 Blood Pressure 1: 120/54 Code: 8480-6 Heart Rate 1: 76 bpm Respiratory Rate: 20 bpm SpO2: 92% Temperature: 36.8 (C) / 98.3 (F) We ight: 215 lbs 12/05/2018 Blood Pressure 1: 156/60 Code: 8480-6 Heart Rate 1: 92 bpm Respiratory Rate: 24 bpm SpO2: 93% Temperature: 37.0 (C) / 98.6 (F) 10/23/2018 Blood Pressure 1: 126/68 Code: 8480-6 BMI: 30.2 Code: 10906-3 Heart Rate 1: 92 bpm Height: 6' Respiratory Rate: 22 bpm SpO2: 94% Tempera ture: 36.9 (C) / 98.5 (F) Weight: 223 lbs 08/21/2018 Blood Pressure 1: 160/70 Code: 8480-6 Heart Rate 1: 79 bpm Respiratory Rate: 20 bpm SpO2: 94% Temperature: 36.7 (C) / 98.0 (F) We ight: 226 lbs 8 oz 08/07/2018 Blood Pressure 1: 138/70 Code: 8480-6 BMI: 30.1 Code: 85836-6 Heart Rate 1: 80 bpm Height: 6' Respiratory Rate: 20 bpm SpO2: 94% Tempera ture: 36.9 (C) / 98.5 (F) Weight: 222 lbs 05/23/2018 Blood Pressure 1: 148/66 Code: 8480-6 BMI: 30.0 Code: 56887-4 Heart Rate 1: 96 bpm Height: 6' Respiratory Rate: 22 bpm SpO2: 94% Tempera ture: 37.3 (C) / 99.1 (F) Weight: 221 lbs 05/02/2018 Blood Pressure 1: 146/78 Code: 8480-6 BMI: 29.6 Code: 38556-5 Heart Rate 1: 78 bpm Height: 6' Respiratory Rate: 26 bpm SpO2: 94% Tempera ture: 35.7 (C) / 96.2 (F) Weight: 218 lbs 04/29/2018 Blood Pressure 1: 142/62 Code: 8480-6 BMI: 28.6 Code: 73238-7 Heart Rate 1: 82 bpm Height: 6' Respiratory Rate: 22 bpm SpO2: 98% Tempera ture: 36.4 (C) / 97.6 (F) Weight: 211 lbs 04/22/2018 Blood Pressure 1: 126/64 Code: 8480-6 BMI: 30.0 Code: 50015-6 Heart Rate 1: 96 bpm Height: 6' Respiratory Rate: 28 bpm SpO2: 96% Tempera ture: 36.7 (C) / 98.1 (F) Weight: 221 lbs 01/28/2018 Blood Pressure 1: 146/70 Code: 8480-6 Heart Rate 1: 88 bpm Height: 6' Respiratory Rate: 22 bpm SpO2: 94% Temperature: 36 .7 (C) / 98.0 (F) 01/23/2018 Blood Pressure 1: 146/52 Code: 8480-6 Heart Rate 1: 92 bpm Respiratory Rate: 22 bpm SpO2: 93% Temperature: 36.8 (C) / 98.2 (F) We ight: 225 lbs 01/02/2018 Blood Pressure 1: 144/78 Code: 8480-6 BMI: 30.7 Code: 73436-8 Heart Rate 1: 92 bpm Height: 6' Respiratory Rate: 28 bpm SpO2: 94% Tempera ture: 36.9 (C) / 98.4 (F) Weight: 226 lbs 12/28/2017 Blood Pressure 1: 136/80 Code: 8480-6 Heart Rate 1: 92 bpm Respiratory Rate: 28 bpm SpO2: 94% Temperature: 36.7 (C) / 98.1 (F) 12/21/2017 Blood Pressure 1: 146/84 Code: 8480-6 BMI: 31.1 Code: 37486-8 Heart Rate 1: 84 bpm Height: 6' Respiratory Rate: 28 bpm SpO2: 92% Tempera ture: 36.6 (C) / 97.9 (F) Weight: 229 lbs 12/17/2017 Blood Pressure 1: 160/68 Code: 8480-6 Heart Rate 1: 98 bpm Respiratory Rate: 26 bpm SpO2: 94% Temperature: 36.8 (C) / 98.3 (F) We ight: 237 lbs 12/11/2017 Blood Pressure 1: 146/80 Code: 8480-6 Heart Rate 1: 88 bpm Respiratory Rate: 22 bpm SpO2: 93% Temperature: 36.9 (C) / 98.4 (F) We ight: 233 lbs 11/07/2017 Blood Pressure 1: 142/64 Code: 8480-6 BMI: 31.3 Code: 82940-7 Heart Rate 1: 98 bpm Height: 6' Respiratory Rate: 24 bpm SpO2: 94% Tempera ture: 36.4 (C) / 97.6 (F) Weight: 231 lbs 10/17/2017 Blood Pressure 1: 140/68 Code: 8480-6 BMI: 31.7 Code: 32260-8 Heart Rate 1: 88 bpm Height: 6' Respiratory Rate: 20 bpm SpO2: 94% Tempera ture: 36.8 (C) / 98.3 (F) Weight: 234 lbs 08/02/2017 Blood Pressure 1: 142/80 Code: 8480-6 BMI: 31.1 Code: 95745-9 Heart Rate 1: 86 bpm Height: 6' Respiratory Rate: 20 bpm SpO2: 90% Tempera ture: 35.9 (C) / 96.7 (F) Weight: 229 lbs 07/02/2017 Blood Pressure 1: 146/64 Code: 8480-6 BMI: 29.6 Code: 69994-7 Heart Rate 1: 96 bpm Height: 6' Respiratory Rate: 20 bpm Temperature: 36 .4 (C) / 97.6 (F) Weight: 218 lbs 05/29/2017 Blood Pressure 1: 152/68 Code: 8480-6 BMI: 31.5 Code: 81298-1 Heart Rate 1: 100 bpm Height: 6' Respiratory Rate: 20 bpm SpO2: 92% Tempera ture: 36.9 (C) / 98.4 (F) Weight: 232 lbs 02/01/2017 Blood Pressure 1: 146/64 Code: 8480-6 BMI: 30.7 Code: 06357-8 Heart Rate 1: 76 bpm Height: 6' Respiratory Rate: 20 bpm SpO2: 95% Tempera ture: 36.8 (C) / 98.2 (F) Weight: 226 lbs 01/29/2017 Blood Pressure 1: 146/78 Code: 8480-6 Heart Rate 1: 84 bpm Respiratory Rate: 20 bpm SpO2: 96% Temperature: 36.1 (C) / 97.0 (F) We ight: 226 lbs 12/21/2016 Blood Pressure 1: 126/60 Code: 8480-6 BMI: 30.8 Code: 08072-2 Heart Rate 1: 88 bpm Height: 6' Respiratory Rate: 22 bpm SpO2: 94% Tempera ture: 36.7 (C) / 98.0 (F) Weight: 227 lbs 12/14/2016 Blood Pressure 1: 126/70 Code: 8480-6 BMI: 29.8 Code: 00033-7 Heart Rate 1: 92 bpm Height: 6' Respiratory Rate: 22 bpm SpO2: 93% Tempera ture: 36.8 (C) / 98.2 (F) Weight: 220 lbs 11/14/2016 Blood Pressure 1: 128/62 Code: 8480-6 Heart Rate 1: 100 bpm Respiratory Rate: 20 bpm SpO2: 96% Temperature: 36.6 (C) / 97.8 (F) We ight: 220 lbs 10/31/2016 Blood Pressure 1: 142/60 Code: 8480-6 BMI: 30.1 Code: 09293-6 Heart Rate 1: 112 bpm Height: 6' Respiratory Rate: 24 bpm SpO2: 93% Tempera ture: 37.1 (C) / 98.7 (F) Weight: 222 lbs 10/03/2016 Blood Pressure 1: 136/78 Code: 8480-6 Heart Rate 1: 106 bpm Respiratory Rate: 24 bpm SpO2: 93% Temperature: 36.6 (C) / 97.8 (F) We ight: 221 lbs 09/04/2016 Blood Pressure 1: 112/44 Code: 8480-6 BMI: 30.1 Code: 33471-2 Heart Rate 1: 90 bpm Height: 6' Respiratory Rate: 20 bpm SpO2: 93% Tempera ture: 36.6 (C) / 97.9 (F) Weight: 222 lbs 08/22/2016 Blood Pressure 1: 142/68 Code: 8480-6 BMI: 30.4 Code: 31159-8 Heart Rate 1: 100 bpm Height: 6' Respiratory Rate: 24 bpm SpO2: 93% Tempera ture: 36.7 (C) / 98.1 (F) Weight: 224 lbs 08/10/2016 Blood Pressure 1: 134/60 Code: 8480-6 BMI: 30.2 Code: 87621-9 Heart Rate 1: 76 bpm Height: 6' Respiratory Rate: 22 bpm SpO2: 94% Weight: 223 lbs 07/06/2016 Blood Pressure 1: 126/58 Code: 8480-6 Heart Rate 1: 84 bpm Respiratory Rate: 28 bpm SpO2: 92% Temperature: 36.5 (C) / 97.7 (F) We ight: 220 lbs 06/22/2016 Blood Pressure 1: 134/80 Code: 8480-6 Heart Rate 1: 88 bpm Respiratory Rate: 20 bpm SpO2: 90% Temperature: 36.4 (C) / 97.6 (F) We ight: 220 lbs 06/13/2016 Blood Pressure 1: 146/60 Code: 8480-6 Heart Rate 1: 96 bpm Respiratory Rate: 26 bpm SpO2: 94% Temperature: 36.6 (C) / 97.9 (F) We ight: 219 lbs 06/01/2016 Blood Pressure 1: 142/78 Code: 8480-6 Heart Rate 1: 88 bpm Respiratory Rate: 20 bpm SpO2: 94% Temperature: 36.6 (C) / 97.8 (F) We ight: 226 lbs 04/26/2016 Blood Pressure 1: 126/64 Code: 8480-6 Heart Rate 1: 92 bpm Respiratory Rate: 24 bpm SpO2: 94% Temperature: 36.2 (C) / 97.2 (F) We ight: 228 lbs 04/05/2016 Blood Pressure 1: 122/72 Code: 8480-6 BMI: 30.7 Code: 97005-9 Heart Rate 1: 96 bpm Height: 6' Respiratory Rate: 22 bpm SpO2: 96% Tempera ture: 35.9 (C) / 96.7 (F) Weight: 226 lbs 04/03/2016 Blood Pressure 1: 146/64 Code: 8480-6 BMI: 30.8 Code: 65484-3 Heart Rate 1: 76 bpm Height: 6' Respiratory Rate: 20 bpm Temperature: 36 .8 (C) / 98.2 (F) Weight: 227 lbs 03/02/2016 Blood Pressure 1: 148/60 Code: 8480-6 BMI: 31.1 Code: 79080-3 Heart Rate 1: 80 bpm Height: 6' Respiratory Rate: 22 bpm SpO2: 94% Tempera ture: 36.6 (C) / 97.8 (F) Weight: 229 lbs 02/17/2016 Blood Pressure 1: 132/60 Code: 8480-6 BMI: 31.3 Code: 31493-2 Heart Rate 1: 80 bpm Height: 6' Respiratory Rate: 20 bpm Temperature: 36 .9 (C) / 98.4 (F) Weight: 231 lbs 02/14/2016 Blood Pressure 1: 126/70 Code: 8480-6 BMI: 31.3 Code: 88743-9 Heart Rate 1: 80 bpm Height: 6' Respiratory Rate: 24 bpm SpO2: 95% Tempera ture: 36.9 (C) / 98.5 (F) Weight: 231 lbs 01/31/2016 Blood Pressure 1: 136/60 Code: 8480-6 Heart Rate 1: 76 bpm Respiratory Rate: 22 bpm Temperature: 37.0 (C) / 98.6 (F) Weight: 230 lbs 12/30/2015 Blood Pressure 1: 128/58 Code: 8480-6 BMI: 31.2 Code: 87475-5 Heart Rate 1: 80 bpm Height: 6' Respiratory Rate: 20 bpm Temperature: 36 .8 (C) / 98.2 (F) Weight: 230 lbs 12/16/2015 Blood Pressure 1: 122/60 Code: 8480-6 BMI: 32.0 Code: 40224-5 Heart Rate 1: 84 bpm Height: 6' Respiratory Rate: 24 bpm Temperature: 37 .1 (C) / 98.7 (F) Weight: 236 lbs 12/06/2015 Blood Pressure 1: 162/74 Code: 8480-6 BMI: 32.5 Code: 18494-6 Heart Rate 1: 90 bpm Height: 6' Respiratory Rate: 20 bpm SpO2: 96% Tempera ture: 36.4 (C) / 97.6 (F) Weight: 240 lbs 11/15/2015 Blood Pressure 1: 166/80 Code: 8480-6 BMI: 32.4 Code: 98161-6 Heart Rate 1: 92 bpm Height: 6' Respiratory Rate: 28 bpm Temperature: 36 .5 (C) / 97.7 (F) Weight: 239 lbs 10/05/2015 Blood Pressure 1: 146/76 Code: 8480-6 BMI: 32.4 Code: 74152-5 Heart Rate 1: 88 bpm Height: 6' Respiratory Rate: 28 bpm Temperature: 37 .1 (C) / 98.7 (F) Weight: 239 lbs 07/22/2015 Blood Pressure 1: 144/68 Code: 8480-6 BMI: 31.9 Code: 37682-2 Heart Rate 1: 88 bpm Height: 6' Respiratory Rate: 28 bpm Temperature: 36 .4 (C) / 97.6 (F) Weight: 235 lbs 07/01/2015 Blood Pressure 1: 142/80 Code: 8480-6 Heart Rate 1: 86 bpm Height: Respiratory Rate: 20 bpm Temperature: 36.5 (C) / 97.7 (F) Weight: 06/28/2015 Blood Pressure 1: 162/78 Code: 8480-6 Heart Rate 1: 80 bpm Height: Respiratory Rate: 20 bpm Temperature: 37.0 (C) / 98.6 (F) Weight: 231 lbs 06/09/2015 Blood Pressure 1: 142/64 Code: 8480-6 BMI: 32.1 Code: 22446-5 Heart Rate 1: 80 bpm Height: 6' Respiratory Rate: 18 bpm Temperature: 36 .4 (C) / 97.6 (F) Weight: 237 lbs 06/07/2015 Blood Pressure 1: 164/58 Code: 8480-6 BMI: 32.1 Code: 44967-7 Heart Rate 1: 88 bpm Height: 6' Respiratory Rate: 20 bpm Temperature: 36 .6 (C) / 97.9 (F) Weight: 237 lbs 06/03/2015 Blood Pressure 1: 152/64 Code: 8480-6 BMI: 32.1 Code: 61562-6 Heart Rate 1: 96 bpm Height: 6' Respiratory Rate: 20 bpm Temperature: 37 .4 (C) / 99.3 (F) Weight: 237 lbs 06/01/2015 Blood Pressure 1: 136/70 Code: 8480-6 BMI: 31.7 Code: 50644-3 Heart Rate 1: 72 bpm Height: 6' Respiratory Rate: 22 bpm SpO2: 94% Tempera ture: 36.6 (C) / 97.9 (F) Weight: 234 lbs 02/25/2015 Blood Pressure 1: 146/80 Code: 8480-6 BMI: 32.4 Code: 03290-6 Heart Rate 1: 84 bpm Height: 6' Respiratory Rate: 28 bpm Temperature: 36 .7 (C) / 98.0 (F) Weight: 239 lbs 10/27/2014 Blood Pressure 1: 168/70 Code: 8480-6 BMI: 32.0 Code: 05652-3 Heart Rate 1: 80 bpm Height: 6' Respiratory Rate: 30 bpm SpO2: 98% Tempera ture: 36.4 (C) / 97.6 (F) Weight: 236 lbs 10/21/2014 Blood Pressure 1: 152/58 Code: 8480-6 BMI: 32.1 Code: 68301-1 Heart Rate 1: 78 bpm Height: 6' Respiratory Rate: 20 bpm Temperature: 37 .8 (C) / 100.1 (F) Weight: 237 lbs 10/06/2014 Blood Pressure 1: 132/64 Code: 8480-6 BMI: 32.5 Code: 81109-4 Heart Rate 1: 88 bpm Height: 6' Respiratory Rate: 32 bpm SpO2: 94% Tempera ture: 36.8 (C) / 98.2 (F) Weight: 240 lbs 09/21/2014 Blood Pressure 1: 134/68 Code: 8480-6 BMI: 32.4 Code: 02804-7 Heart Rate 1: 96 bpm Height: 6' Respiratory Rate: 30 bpm Temperature: 36 .7 (C) / 98.1 (F) Weight: 239 lbs 09/08/2014 Blood Pressure 1: 128/74 Code: 8480-6 BMI: 32.4 Code: 21809-9 Heart Rate 1: 82 bpm Height: 6' Respiratory Rate: 28 bpm SpO2: 93% Tempera ture: 36.6 (C) / 97.8 (F) Weight: 239 lbs 09/02/2014 Blood Pressure 1: 164/78 Code: 8480-6 Heart Rate 1: 86 bpm Respiratory Rate: 22 bpm SpO2: 96% Temperature: 36.1 (C) / 97.0 (F) We ight: 239 lbs 08/10/2014 Blood Pressure 1: 152/60 Code: 8480-6 BMI: 32.8 Code: 34011-8 Heart Rate 1: 80 bpm Height: 6' Respiratory Rate: 22 bpm Temperature: 36 .0 (C) / 96.8 (F) Weight: 242 lbs 05/05/2014 Blood Pressure 1: 132/70 Code: 8480-6 Heart Rate 1: 76 bpm Respiratory Rate: 28 bpm Temperature: 36.6 (C) / 97.8 (F) Weight: 235 lbs 03/24/2014 Blood Pressure 1: 118/78 Code: 8480-6 Heart Rate 1: 84 bpm Respiratory Rate: 26 bpm SpO2: 95% Temperature: 36.7 (C) / 98.1 (F) We ight: 238 lbs 03/10/2014 Blood Pressure 1: 158/60 Code: 8480-6 Heart Rate 1: 92 bpm Respiratory Rate: 24 bpm SpO2: 93% Temperature: 36.4 (C) / 97.6 (F) We ight: 232 lbs 12/16/2013 Blood Pressure 1: 146/80 Code: 8480-6 BMI: 33.9 Code: 31421-2 Heart Rate 1: 80 bpm Height: 6' Respiratory Rate: 20 bpm Temperature: 36 .8 (C) / 98.2 (F) Weight: 250 lbs 10/09/2013 Blood Pressure 1: 124/84 Code: 8480-6 Heart Rate 1: 82 bpm Respiratory Rate: 20 bpm SpO2: 94% Temperature: 36.1 (C) / 97.0 (F) We ight: 231 lbs 09/18/2013 Blood Pressure 1: 130/58 Code: 8480-6 Heart Rate 1: 84 bpm Respiratory Rate: 20 bpm SpO2: 97% Temperature: 36.8 (C) / 98.2 (F) We ight: 237 lbs 08/13/2013 Blood Pressure 1: 148/78 Code: 8480-6 BMI: 30.5 Code: 73051-1 Heart Rate 1: 84 bpm Height: 6' Respiratory Rate: 28 bpm SpO2: 97% Tempera ture: 36.4 (C) / 97.5 (F) Weight: 225 lbs 08/06/2013 Blood Pressure 1: 158/70 Code: 8480-6 Heart Rate 1: 110 bpm Respiratory Rate: 22 bpm SpO2: 88% Temperature: 39.7 (C) / 103.4 (F) W eight: 07/16/2013 Blood Pressure 1: 148/82 Code: 8480-6 BMI: 31.9 Code: 78774-7 Heart Rate 1: 80 bpm Height: 6' Respiratory Rate: 20 bpm Temperature: 36 .6 (C) / 97.9 (F) Weight: 235 lbs 04/09/2013 Blood Pressure 1: 142/78 Code: 8480-6 BMI: 31.5 Code: 30680-9 Heart Rate 1: 88 bpm Height: 6' Respiratory Rate: 32 bpm SpO2: 95% Tempera ture: 37.0 (C) / 98.6 (F) Weight: 232 lbs 02/11/2013 Blood Pressure 1: 146/70 Code: 8480-6 Heart Rate 1: 88 bpm Respiratory Rate: 20 bpm Temperature: 36.8 (C) / 98.3 (F) Weight: 230 lbs 01/31/2013 Blood Pressure 1: 128/70 Code: 8480-6 BMI: 31.6 Code: 54195-0 Heart Rate 1: 84 bpm Height: 6' Respiratory Rate: 24 bpm SpO2: 92% Tempera ture: 36.7 (C) / 98.0 (F) Weight: 233 lbs 01/20/2013 Blood Pressure 1: 148/64 Code: 8480-6 BMI: 31.6 Code: 65426-3 Heart Rate 1: 68 bpm Height: 6' Temperature: 36.1 (C) / 97.0 (F) Weight: 233 lbs 12/19/2012 Blood Pressure 1: 128/68 Code: 8480-6 BMI: 32.0 Code: 94197-3 Heart Rate 1: 64 bpm Height: 6' Temperature: 36.7 (C) / 98.0 (F) Weight: 236 lbs 10/21/2012 Blood Pressure 1: 142/64 Code: 8480-6 BMI: 30.9 Code: 07009-4 Heart Rate 1: 74 bpm Height: 6' Temperature: 36.2 (C) / 97.1 (F) Weight: 228 lbs 09/18/2012 Blood Pressure 1: 126/60 Code: 8480-6 BMI: 31.3 Code: 77676-9 Heart Rate 1: 88 bpm Height: 6' Respiratory Rate: 20 bpm Temperature: 36 .5 (C) / 97.7 (F) Weight: 231 lbs 08/28/2012 Blood Pressure 1: 132/68 Code: 8480-6 BMI: 31.5 Code: 63961-7 Heart Rate 1: 92 bpm Height: 6' Respiratory Rate: 30 bpm SpO2: 94% Tempera ture: 37.1 (C) / 98.7 (F) Weight: 232 lbs 07/10/2012 Blood Pressure 1: 118/70 Code: 8480-6 BMI: 30.5 Code: 84865-0 Heart Rate 1: 72 bpm Height: 6' Respiratory Rate: 24 bpm SpO2: 96% Tempera ture: 36.7 (C) / 98.0 (F) Weight: 225 lbs 05/09/2012 Blood Pressure 1: 124/68 Code: 8480-6 BMI: 29.8 Code: 06054-2 Heart Rate 1: 72 bpm Height: 6' Respiratory Rate: 20 bpm Temperature: 36 .8 (C) / 98.2 (F) Weight: 220 lbs 10/02/2011 Blood Pressure 1: 140/82 Code: 8480-6 BMI: 30.7 Code: 89711-5 Heart Rate 1: 68 bpm Height: 6' Temperature: 36.7 (C) / 98.0 (F) Weight: 226 lbs 08/07/2011 Blood Pressure 1: 122/68 Code: 8480-6 BMI: 30.5 Code: 59431-1 Heart Rate 1: 72 bpm Height: 6' Respiratory Rate: 24 bpm SpO2: 95% Tempera ture: 36.6 (C) / 97.8 (F) Weight: 225 lbs 04/03/2011 Blood Pressure 1: 146/60 Code: 8480-6 Heart Rate 1: 84 bpm Temperature: 36.7 (C) / 98.1 (F) Weight: 230 lbs 01/18/2011 Blood Pressure 1: 160/62 Code: 8480-6 Respirator y Rate: 32 bpm SpO2: 93% Temperature: 37.7 (C) / 99.8 (F) Weight: 235 lbs 12/19/2010 Blood Pressure 1: 132/66 Code: 8480-6 Heart Rate 1: 76 bpm Temperature: 36.3 (C) / 97.3 (F) Weight: 240 lbs 04/05/2010 Blood Pressure 1: 122/70 Code: 8480-6 Heart Rate 1: 84 bpm Temperature: 36.9 (C) / 98.4 (F) 01/13/2010 Blood Pressure 1: 160/78 Code: 8480-6 Heart Rate 1: 88 bpm Temperature: 36.3 (C) / 97.4 (F) Weight: 233 lbs 12/23/2009 Blood Pressure 1: 140/78 Code: 8480-6 BMI: 31.9 Code: 40747-9 Heart Rate 1: 84 bpm Height: 6' Temperature: 36.6 (C) / 97.8 (F) Weight: 235 lbs 12/22/2009 Blood Pressure 1: 140/74 Code: 8480-6 BMI: 31.9 Code: 92872-5 Heart Rate 1: 94 bpm Height: 6' SpO2: 92% Temperature: 35.7 (C) / 96.2 (F) Weight: 235 lbs 12/13/2009 Blood Pressure 1: 146/80 Code: 8480-6 BMI: 33.0 Code: 86860-8 Heart Rate 1: 86 bpm Height: 6' Temperature: 36.5 (C) / 97.7 (F) Weight: 243 lbs Functional Status No Functional Status data Reason For Visit Reason For Visit Effective Dates Notes follow up 12/25/2019 ER visit knee pain 12/22/2019 fatigue 11/12/2019 follow up 09/11/2019 cough 08/07/2019 cough 07/14/2019 follow up 07/01/2019 vomiting 06/24/2019 follow up 06/17/2019 right knee pain injection(s) 06/10/2019 b12 shot injection(s) 06/02/2019 injection(s) 05/27/2019 injection(s) 05/12/2019 B12 shot follow up 05/08/2019 follow up 04/07/2019 [facility] dizziness 03/24/2019 dizziness 03/21/2019 sore throat 03/13/2019 Patient finished zit hromax last night and has one dose of prednisone left follow up 03/10/2019 ER fwup---patient cu rrently taking zithromax, prednisone and breathing treatments every two hours spasms/spasticity 02/26/2019 follow up 02/13/2019 follow up 01/14/2019 [facility] follow up 12/25/2018 cough 12/09/2018 here for follow up l abs also oral pain 12/05/2018 follow up 10/23/2018 Patient getting inje ction tomorrow since cortisone didn't give him any relief skin lesion 08/21/2018 wants lesion to be c hecked out on forehead follow up 08/07/2018 follow up 05/23/2018 follow up 05/02/2018 Patient was seen in the ER and prescribed Lidocaine solution for oral use follow up 04/29/2018 Patient has had ongo ing chest congestion/cough. He has had Zpack and using Symbiocort "every couple hours". Patient has finished nystatin oral suspension due to ongoing thrush. His called this morning stating within the last week patient's mental status change has drastically changed. Patient tells her "he just wants to " and fighting constantly with her. follow up 04/22/2018 [facility] follow up 01/28/2018 knee pain 01/23/2018 nocturia 01/02/2018 dyspnea 12/28/2017 follow up 12/21/2017 chest congestion 12/17/2017 knee pain 12/11/2017 mole check 11/07/2017 follow up 10/17/2017 ER fw cough 08/02/2017 injection(s) 07/24/2017 Pneumovax follow up 07/02/2017 Patient recently ariel campos on Tudor[employer], but never picked up. He was also given prednisone/Zpack on 06/16/17 from walk in clinic. Patient is also in consult with Dr Rodriguez. patient dc'd from hospital last week and reports that he is still taking the antibiotic that was prescribed to him (augmentin) and finished out the prednisone. 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 follow up 05/29/2017 Discuss Low Back Xra y- patient has ongoing low back pain- describes as aching and sharp. Patient has been taking Extra pain medication to help sleep at night lab draw 04/17/2017 shoulder pain 02/01/2017 follow up 01/29/2017 Patient states was p icking objects off of a top shelf in own home approximately 2 weeks ago and fell backwards. Patient able to perform ROM exercise, but induces sharp pain. Patien requesting XRAY lab draw 12/27/2016 fatigue 12/21/2016 follow up 12/14/2016 ER fwup lab draw 12/12/2016 follow up 11/14/2016 Patient has history of restless leg syndrome and currently on Requip 2mg nightly. Patient has just been discharged from [place] with Pneumonia. Currently on Levaquin once daily. insomnia 10/31/2016 chest congestion 10/03/2016 follow up 09/04/2016 Patient has history of restless legs- patient currently on requip and states is not effective skin lesion 08/22/2016 insomnia 08/10/2016 follow up 07/06/2016 shortness of breath 06/22/2016 Patient states his c hest heaviness is more likely from gallbladder/GERD not cardiac related, but with cardiac history would like evaluated follow up 06/13/2016 Hospital fwup COPD w/exac 06/01/2016 Patient states chest tightness, shortness of breath, and fatigue have worsened in the last 2-3 weeks with exertion. otalgia 04/26/2016 cerumen 04/05/2016 Patient has been maximiliano ing ear drops follow up 04/03/2016 2mo fwup follow up 03/13/2016 Patient here for [facility] on medication education for insulin use lab draw 03/06/2016 follow up 03/02/2016 foot pain 02/17/2016 foot pain 02/14/2016 follow up 01/31/2016 anxiety 12/30/2015 follow up 12/16/2015 1wk fwup follow up 12/06/2015 otalgia 11/15/2015 diabetes mellitus 10/05/2015 follow up 07/22/2015 2wk fwup follow up 07/01/2015 follow up 06/28/2015 follow up 06/09/2015 3 day follow up 06/07/2015 3 day-Discuss wound culture cellulitis 06/03/2015 follow up 06/01/2015 3mo fwup follow up 02/25/2015 3mo fwup follow up 10/27/2014 [facility] cough 10/21/2014 follow up 10/06/2014 follow up 09/21/2014 [facility] follow up 09/08/2014 [facility] cough 09/02/2014 well man exam (65+ years) 08/10/2014 lab draw 08/05/2014 flu shot follow up 05/05/2014 6wk fwup follow up 03/24/2014 2wk up shortness of breath 03/10/2014 shoulder pain 12/16/2013 Request back brace w hen working/lifting---chiropractor had recommended he get one to wear shortness of breath 10/09/2013 cough 09/18/2013 follow up 08/13/2013 [facility] cough 08/06/2013 follow up 07/16/2013 lab draw 06/25/2013 dyspnea 04/09/2013 pain, limb 02/11/2013 cough 01/31/2013 Has finished the cef dinir about 3 days ago cough 01/20/2013 dizziness 12/19/2012 otalgia 10/21/2012 lab draw 09/19/2012 follow up 09/18/2012 didn't have fasting labs done prior to appointment cough 08/28/2012 dyspnea on exertion 07/10/2012 patient not sure if taking advair or symbicort follow up 05/09/2012 discuss labs lab draw 05/06/2012 injection(s) 02/05/2012 Zostavax cough 10/02/2011 follow up 08/07/2011 discuss labs diabetes mellitus 04/03/2011 fever 01/18/2011 will have some confu yesi on the days the feels horrible follow up 12/19/2010 discuss labs diarrhea 04/05/2010 follow up 01/13/2010 patient said appt wa s per Dr Barakat's request, insurance wanting to change actoplus met/lexapro follow up 12/23/2009 shortness of breath 12/22/2009 back pain 12/13/2009 Encounters Encounter Performer Location Codes Date ([id number]) OFFICE/OUTPATIENT VISIT EST Diagnosis: Chronic obstructive pulmonary disease with (acute) exacerbation[ICD10: J44.1] Lita BARAKAT [employer] [facility] CPT- 4: 43839 12/25/2019 ([id number]) OFFICE/OUTPATIENT VISIT EST Diagnosis: Noncompliance with diabetes treatment[ICD10: Z91.19] Diagnosis: Insomnia[ICD10: G47.00] Diagnosis: Pain in right knee[ICD10: M25.561] Lita Barakat [facility] CPT-4: 17727 12/22/2019 ([id number]) OFFICE/OUTPATIENT VISIT EST Diagnosis: Chronic respiratory failure with hypercapnia[ICD10: J96.12] Diagnosis: Chronic airway obstruction, not elsewhere classified[ICD10: J44.9] Diagnosis: Basal cell carcinoma, face[ICD10: C44.310] Lita ALYLINE Ashley BARAKAT [employer] [facility] CPT-4: 08591 11/12/2019 ([id number]) OFFICE/OUTPATIENT VISIT EST Diagnosis: Chronic obstructive pulmonary disease, unspecified[ICD10: J44.9] Diagnosis: Right thyroid nodule[ICD10: E04.1] Lita Gasper KEVIN GONZALES Ashley BARAKAT [facility] CPT-4: 64787 09/11/2019 ([id number]) OFFICE/OUTPATIENT VISIT EST Diagnosis: Chronic bronchitis[ICD10: J42] 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] Diagnosis: FLU VACCINE[ICD10: Z23] Lita HERRMANNQUELINE Ashley PABLO [employer] [facility] CPT-4: 40003 08/07/2019 ([id number]) OFFICE/OUTPATIENT VISIT EST Diagnosis: Chronic obstructive pulmonary disease with (acute) exacerbation[ICD10: J44.1] Autumn ALYLINE Ashley BARAKAT [employer] [facility] CPT- 4: 42104 07/14/2019 ([id number]) OFFICE/OUTPATIENT VISIT EST Diagnosis: Primary insomnia[ICD10: F51.01] Diagnosis: Dyspepsia and other specified disorders of function of stomach[ICD10: K31.89] Lita CRAWFORD Ashley BARAKAT [facility] CPT-4: 84038 07/01/2019 ([id number]) OFFICE/OUTPATIENT VISIT EST Diagnosis: Epigastric pain[ICD10: R10.13] Diagnosis: Nausea[ICD10: R11.0] Diagnosis: Weight loss[ICD10: R63.4] Lita AREVALO DO [facility] CPT-4: 78991 06/24/2019 ([id number]) OFFICE/OUTPATIENT VISIT EST Diagnosis: Chronic obstructive pulmonary disease, unspecified[ICD10: J44.9] Diagnosis: Chronic insomnia[ICD10: F51.04] Diagnosis: Anemia[ICD10: D64.9] Diagnosis: Diplopia[ICD10: H53.2] Diagnosis: Columba[ICD10: F30.9] Lita BARAKAT DO [facility] CPT-4: 19886 06/17/2019 ([id number]) NURSE/OUTPATIENT VISIT EST Diagnosis: Vitamin B12 deficiency anemia, unspecified[ICD10: D51.9] Lita BARAKAT DO [facility] CPT-4: 58681 06/10/2019 ([id number]) NURSE/OUTPATIENT VISIT EST Diagnosis: Vitamin B12 deficiency anemia, unspecified[ICD10: D51.9] Lita BARAKAT DO [facility] CPT-4: 94648 06/02/2019 ([id number]) NURSE/OUTPATIENT VISIT EST Diagnosis: Vitamin B12 deficiency anemia, unspecified[ICD10: D51.9] Lita BARAKAT DO [facility] CPT-4: 28581 05/27/2019 ([id number]) NURSE/OUTPATIENT VISIT EST Diagnosis: Vitamin B12 deficiency anemia, unspecified[ICD10: D51.9] Lita BARAKAT DO [facility] CPT-4: 52190 05/12/2019 ([id number]) OFFICE/OUTPATIENT VISIT EST Diagnosis: Restless legs syndrome[ICD10: G25.81] Diagnosis: Primary insomnia[ICD10: F51.01] Diagnosis: Anemia, unspecified[ICD10: D64.9] Diagnosis: Type 2 diabetes mellitus with hyperglycemia[ICD10: E11.65] Diagnosis: Vitamin D deficiency, unspecified[ICD10: E55.9] Litacarol BARAKAT DO [facility] CPT-4: 57003 05/08/2019 ([id number]) OFFICE/OUTPATIENT VISIT EST Diagnosis: Pain in right knee[ICD10: M25.561] Diagnosis: Restless legs syndrome[ICD10: G25.81] Diagnosis: Insomnia, unspecified[ICD10: G47.00] Lita BARAKAT DO [facility] CPT-4: 51225 04/07/2019 ([id number]) NO CHARGE Diagnosis: Chronic obstructive pulmonary disease with (acute) exacerbation[ICD10: J44.1] Diagnosis: Dizziness and giddiness[ICD10: R42] Diagnosis: Generalized anxiety disorder[ICD10: F41.1] Autumn BARAKAT DO [facility] CPT-4: 37693 03/24/2019 ([id number]) OFFICE/OUTPATIENT VISIT EST Diagnosis: Chronic obstructive pulmonary disease with (acute) exacerbation[ICD10: J44.1] Diagnosis: Dizziness and giddiness[ICD10: R42] Autumn BARAKAT DO [facility] CPT-4: 89309 03/21/2019 ([id number]) OFFICE/OUTPATIENT VISIT EST Diagnosis: Candidal stomatitis[ICD10: B37.0] Lita BARAKAT [facility] CPT-4: 51378 03/13/2019 ([id number]) OFFICE/OUTPATIENT VISIT EST Diagnosis: Chronic obstructive pulmonary disease with acute lower respiratory infection[ICD10: J44.0] Diagnosis: Restless legs syndrome[ICD10: G25.81] Lita Archerjosefbev TADEO MARC Ashley BARAKAT DO [facility] CPT-4: 78172 03/10/2019 ([id number]) OFFICE/OUTPATIENT VISIT EST Diagnosis: Restless legs syndrome[ICD10: G25.81] Lita Jasminjosefbev TADEO MARC Ashley ARCHERNDBEV JOHNSON [facility] CPT-4: 23510 02/26/2019 ([id number]) OFFICE/OUTPATIENT VISIT EST Diagnosis: Primary insomnia[ICD10: F51.01] Diagnosis: Chronic obstructive pulmonary disease, unspecified[ICD10: J44.9] Lita Jasminbetty CRAWFORD Ashley BARAKAT DO [facility] CPT-4: 09834 02/13/2019 ([id number]) OFFICE/OUTPATIENT VISIT EST Diagnosis: Chronic obstructive pulmonary disease, unspecified[ICD10: J44.9] Diagnosis: Chronic respiratory failure with hypoxia[ICD10: J96.11] Diagnosis: Chronic respiratory failure with hypercapnia[ICD10: J96.12] Lita Jasminbetty HERRMANNLITA Ashley BARAKTA [facility] CPT-4: 83547 01/14/2019 ([id number]) OFFICE/OUTPATIENT VISIT EST Diagnosis: Chronic respiratory failure with hypoxia[ICD10: J96.11] Diagnosis: Patient's noncompliance with other medical treatment and regimen[ICD10: Z91.19] Diagnosis: Chronic obstructive pulmonary disease with (acute) exacerbation[ICD10: J44.1] Lita CRAWFORD DonovanFerdinand GASPER [facility] CPT- 4: 71975 12/25/2018 ([id number]) OFFICE/OUTPATIENT VISIT EST Diagnosis: Essential (primary) hypertension[ICD10: I10] Diagnosis: Type 2 diabetes mellitus with hyperglycemia[ICD10: E11.65] Diagnosis: Hypothyroidism, unspecified[ICD10: E03.9] Diagnosis: Hyperlipidemia, unspecified[ICD10: E78.5] Diagnosis: Acute recurrent maxillary sinusitis[ICD10: J01.01] Ines HERRMANNQUELINE Ashley BARAKAT [facility] CPT-4: 39834 12/09/2018 ([id number]) OFFICE/OUTPATIENT VISIT EST Diagnosis: Candidal stomatitis[ICD10: B37.0] Lita Segura DonovanFerdinand ARMIN [employer] [facility] CPT-4: 02601 12/05/2018 ([id number]) OFFICE/OUTPATIENT VISIT EST Diagnosis: Acute recurrent sinusitis, unspecified[ICD10: J01.91] Diagnosis: Pain in right knee[ICD10: M25.561] Lita GONZALES Ashley BARAKAT [employer] [facility] CPT-4: 24685 10/23/2018 ([id number]) OFFICE/OUTPATIENT VISIT EST Diagnosis: Restless legs syndrome[ICD10: G25.81] Diagnosis: Basal cell carcinoma of skin of scalp and neck[ICD10: C44.41] Lita CRAWFORD DonovanFerdinand GASPER [facility] CPT-4: 18867 08/21/2018 ([id number]) OFFICE/OUTPATIENT VISIT EST Diagnosis: Chronic obstructive pulmonary disease with acute lower respiratory infection[ICD10: J44.0] Diagnosis: Restless legs syndrome[ICD10: G25.81] Lita BARAKAT DO [facility] CPT-4: 43748 08/07/2018 ([id number]) OFFICE/OUTPATIENT VISIT EST Diagnosis: Chronic obstructive pulmonary disease with acute lower respiratory infection[ICD10: J44.0] Lita BARAKAT DO [facility] CPT-4: 36946 05/23/2018 ([id number]) OFFICE/OUTPATIENT VISIT EST Diagnosis: Candidal stomatitis[ICD10: B37.0] Lita BARAKAT DO [facility] CPT-4: 73161 05/02/2018 ([id number]) OFFICE/OUTPATIENT VISIT EST Diagnosis: Candidal stomatitis[ICD10: B37.0] Diagnosis: Other retention of urine[ICD10: R33.8] Diagnosis: Chronic obstructive pulmonary disease with acute lower respiratory infection[ICD10: J44.0] Autumn BARAKAT DO [facility] CPT-4: 73253 04/29/2018 ([id number]) OFFICE/OUTPATIENT VISIT EST Diagnosis: Chronic obstructive pulmonary disease with acute lower respiratory infection[ICD10: J44.0] Lita BARKAAT DO [facility] CPT-4: 49506 04/22/2018 ([id number]) OFFICE/OUTPATIENT VISIT EST Diagnosis: Unilateral primary osteoarthritis, right knee[ICD10: M17.11] Diagnosis: Squamous cell carcinoma of skin, unspecified[ICD10: C44.92] Lita BARAKAT DO [facility] CPT-4: 80797 01/28/2018 ([id number]) OFFICE/OUTPATIENT VISIT EST Diagnosis: Pain in right knee[ICD10: M25.561] Diagnosis: 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] Lita BARAKAT DO [facility] CPT-4: 32711 01/23/2018 ([id number]) OFFICE/OUTPATIENT VISIT EST Diagnosis: Urinary tract infection, site not specified[ICD10: N39.0] Diagnosis: Chronic obstructive pulmonary disease with acute lower respiratory infection[ICD10: J44.0] Lita BARAKAT DO [facility] CPT-4: 00544 01/02/2018 ([id number]) OFFICE/OUTPATIENT VISIT EST Diagnosis: Chronic obstructive pulmonary disease with (acute) exacerbation[ICD10: J44.1] Autumn BARAKAT DO [facility] CPT- 4: 63650 12/28/2017 ([id number]) OFFICE/OUTPATIENT VISIT EST Diagnosis: Acute bronchitis, unspecified[ICD10: J20.9] Autumn BARAKAT DO [facility] CPT-4: 12320 12/21/2017 ([id number]) OFFICE/OUTPATIENT VISIT EST Diagnosis: Chronic obstructive pulmonary disease with acute lower respiratory infection[ICD10: J44.0] Diagnosis: Pain in right knee[ICD10: M25.561] Autumn BARAKAT DO [facility] CPT-4: 86006 12/17/2017 ([id number]) OFFICE/OUTPATIENT VISIT EST Diagnosis: Laceration without foreign body of right hand, sequela[ICD10: S61.411S] Diagnosis: Restless legs syndrome[ICD10: G25.81] Lita BARAKAT DO [facility] CPT-4: 36155 10/17/2017 OFFICE/OUTPATIENT VISIT EST Diagnosis: Chronic obstructive pulmonary disease with acute lower respiratory infection[ICD10: J44.0] Autumn BARAKAT DO [facility] CPT-4: 57518 08/02/2017 ([id number]) OFFICE/OUTPATIENT VISIT EST Diagnosis: PNEUMOCOCCAL VACCINE[ICD10: Z23] Lita BARAKAT DO [facility] CPT-4: 60365 07/24/2017 OFFICE/OUTPATIENT VISIT EST Diagnosis: Chronic obstructive pulmonary disease with (acute) exacerbation[ICD10: J44.1] Autumn BARAKAT DO [facility] CPT- 4: 78396 07/02/2017 OFFICE/OUTPATIENT VISIT EST Diagnosis: Low back pain[ICD10: M54.5] Ruchi De Los Santos RENDER [facility] CPT-4: 72201 05/29/2017 ([id number]) OFFICE/OUTPATIENT VISIT EST Diagnosis: Essential (primary) hypertension[ICD10: I10] Diagnosis: Hypothyroidism, unspecified[ICD10: E03.9] Diagnosis: Dizziness and giddiness[ICD10: R42] Diagnosis: Other abnormality of red blood cells[ICD10: R71.8] Diagnosis: Contracture of muscle, unspecified site[ICD10: M62.40] Lita Jasminjosefbev LITA DonovanFerdinand GASPER [facility] CPT-4: 33970 04/17/2017 OFFICE/OUTPATIENT VISIT EST Diagnosis: Pain in left shoulder[ICD10: M25.512] Ruchi Chanel TRAN DonovanFerdinand [facility] CPT-4: 23426 01/29/2017 ([id number]) OFFICE/OUTPATIENT VISIT EST Diagnosis: Anemia, unspecified[ICD10: D64.9] Lita Jasminbetty Segura DonovanFerdinand [facility] CPT-4: 70410 12/27/2016 ([id number]) OFFICE/OUTPATIENT VISIT EST Diagnosis: Other fatigue[ICD10: R53.83] Diagnosis: Other iron deficiency anemias[ICD10: D50.8] Lita Barakat LITA DonovanFerdinand [facility] CPT-4: 23557 12/21/2016 ([id number]) OFFICE/OUTPATIENT VISIT EST Diagnosis: Anemia, unspecified[ICD10: D64.9] Diagnosis: Other fatigue[ICD10: R53.83] Diagnosis: Restless legs syndrome[ICD10: G25.81] Lita Jasminbetty TRAN DonovanFerdinand [facility] [facility] CPT-4: 67242 12/14/2016 ([id number]) OFFICE/OUTPATIENT VISIT EST Diagnosis: Anemia, unspecified[ICD10: D64.9] Diagnosis: Other abnormality of red blood cells[ICD10: R71.8] Lita Funezbev LITA DonovanFerdinand [facility] CPT-4: 24010 12/12/2016 ([id number]) OFFICE/OUTPATIENT VISIT EST Diagnosis: Pneumonia, unspecified organism[ICD10: J18.9] Diagnosis: Restless legs syndrome[ICD10: G25.81] Magda HERRMANNONIEL MARC Ashley BARAKAT [facility] CPT-4: 45684 11/14/2016 ([id number]) OFFICE/OUTPATIENT VISIT EST Diagnosis: Candidal stomatitis[ICD10: B37.0] Lita Jasminjosefbev BARAKAT [facility] CPT-4: 26582 10/31/2016 ([id number]) OFFICE/OUTPATIENT VISIT EST Diagnosis: Acute upper respiratory infection, unspecified[ICD10: J06.9] Diagnosis: Personal history of pneumonia (recurrent)[ICD10: Z87.01] Magda ALYLINE Ashlye [facility]AT [facility] CPT-4: 22173 10/03/2016 ([id number]) OFFICE/OUTPATIENT VISIT EST Diagnosis: Restless legs syndrome[ICD10: G25.81] Diagnosis: Insomnia, unspecified[ICD10: G47.00] Magda ALY JESSICA Ashley [facility] CPT-4: 47182 09/04/2016 ([id number]) OFFICE/OUTPATIENT VISIT EST Diagnosis: Restless legs syndrome[ICD10: G25.81] Diagnosis: Primary insomnia[ICD10: F51.01] Lita ALYLINE Ashley BARAKAT [facility] CPT-4: 30522 08/10/2016 OFFICE/OUTPATIENT VISIT EST Diagnosis: Toxic gastroenteritis and colitis[ICD10: K52.1] Diagnosis: Dizziness and giddiness[ICD10: R42] Diagnosis: Headache[ICD10: R51] Diagnosis: Restless legs syndrome[ICD10: G25.81] Lita Jasminbetty PIEDRA MARC Ashley BARAKAT [facility] CPT-4: 88354 07/06/2016 ([id number]) OFFICE/OUTPATIENT VISIT EST Diagnosis: Chest pain, unspecified[ICD10: R07.9] Diagnosis: Dyspnea, unspecified[ICD10: R06.00] Magda HERRMANNTANA CONDE Ashley BARAKAT [facility] CPT-4: 33017 06/22/2016 ([id number]) OFFICE/OUTPATIENT VISIT EST 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] Diagnosis: PNEUMOCOCCAL VACCINE[ICD10: Z23] Diagnosis: FLU VACCINE[ICD10: Z23] Lita [facility] CPT-4: 73594 06/13/2016 ([id number]) OFFICE/OUTPATIENT VISIT EST Diagnosis: Chest pain, unspecified[ICD10: R07.9] Diagnosis: Other forms of dyspnea[ICD10: R06.09] Diagnosis: Shortness of breath[ICD10: R06.02] Diagnosis: Other fatigue[ICD10: R53.83] Magda BARAKAT [facility] CPT-4: 13921 06/01/2016 ([id number]) OFFICE/OUTPATIENT VISIT EST Diagnosis: Unspecified hearing loss, left ear[ICD10: H91.92] Diagnosis: Other specified disorders of Eustachian tube, left ear[ICD10: H69.82] Magda [facility] CPT-4: 03820 11/2015 ([id number]) OFFICE/OUTPATIENT VISIT EST Diagnosis: Impacted cerumen, bilateral[ICD10: H61.23] Diagnosis: DM W/O COMPLICATION TYPE I, 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: E10.9] Diagnosis: Generalized anxiety disorder[ICD10: F41.1] Lita [facility] CPT-4: 03438 04/03/2016 ([id number]) OFFICE/OUTPATIENT VISIT EST Diagnosis: 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] Lita [facility] CPT - 4: 68157 03/13/2016 ([id number]) OFFICE/OUTPATIENT VISIT EST Diagnosis: Type 2 diabetes mellitus with hyperglycemia[ICD10: E11.65] Diagnosis: Hyperlipidemia, unspecified[ICD10: E78.5] Diagnosis: Essential (primary) hypertension[ICD10: I10] Diagnosis: Chronic obstructive pulmonary disease, unspecified[ICD10: J44.9] Diagnosis: Testicular hypofunction[ICD10: E29.1] Diagnosis: Male erectile dysfunction, unspecified[ICD10: N52.9] Diagnosis: Anemia, unspecified[ICD10: D64.9] Lita HERRMANNQUELIN Daja [facility] CPT-4: 68184 03/06/2016 ([id number]) OFFICE/OUTPATIENT VISIT EST Diagnosis: Type 2 diabetes mellitus with hyperglycemia[ICD10: E11.65] Diagnosis: Hyperlipidemia, unspecified[ICD10: E78.5] Diagnosis: Chronic obstructive pulmonary disease, unspecified[ICD10: J44.9] Diagnosis: Male erectile dysfunction, unspecified[ICD10: N52.9] Lita BARAKAT [facility] CPT-4: 88976 03/02/2016 ([id number]) OFFICE/OUTPATIENT VISIT EST Diagnosis: Pain in right foot[ICD10: M79.671] Magda BARAKAT [facility] CPT-4: 76367 02/14/2016 OFFICE/OUTPATIENT VISIT EST Diagnosis: Generalized anxiety disorder[ICD10: F41.1] Lita BARAKAT [facility] CPT-4: 88024 01/31/2016 ([id number]) OFFICE/OUTPATIENT VISIT EST Diagnosis: Generalized anxiety disorder[ICD10: F41.1] Lita BARAKAT [facility] CPT-4: 20968 12/30/2015 ([id number]) OFFICE/OUTPATIENT VISIT EST Diagnosis: Localized swelling, mass and lump, neck[ICD10: R22.1] Lita BARAKAT [facility] CPT-4: 57747 12/16/2015 OFFICE/OUTPATIENT VISIT EST Diagnosis: Localized enlarged lymph nodes[ICD10: R59.0] Diagnosis: Otalgia, left ear[ICD10: H92.02] Stephanie BARAKAT [facility] CPT-4: 85493 12/06/2015 OFFICE/OUTPATIENT VISIT EST Diagnosis: Localized enlarged lymph nodes[ICD10: R59.0] Diagnosis: Squamous cell carcinoma of skin, unspecified[ICD10: C44.92] Diagnosis: Actinic keratosis[ICD10: L57.0] Stephanie BARAKAT DO [facility] CPT-4: 38724 11/15/2015 OFFICE/OUTPATIENT VISIT EST Diagnosis: Cellulitis of left lower limb[ICD10: L03.116] Diagnosis: Encounter for examination and observation for other specified reasons[ICD10: Z04.8] Diagnosis: Chronic obstructive pulmonary disease, unspecified[ICD10: J44.9] Stephanie BARAKAT DO [facility] CPT-4: 01259 07/22/2015 OFFICE/OUTPATIENT VISIT EST Diagnosis: Other specified joint disorders, left knee[ICD10: M25.862] Diagnosis: Cellulitis of left lower limb[ICD10: L03.116] Diagnosis: Other fatigue[ICD10: R53.83] Diagnosis: Hyperlipidemia, unspecified[ICD10: E78.5] Stephanie BARAKAT DO [facility] CPT-4: 09549 07/01/2015 OFFICE/OUTPATIENT VISIT EST Diagnosis: Pain in left knee[ICD10: M25.562] Diagnosis: Cellulitis of left lower limb[ICD10: L03.116] Diagnosis: Other specified joint disorders, left knee[ICD10: M25.862] Stephanie BARAKAT DO [facility] CPT-4: 83220 06/28/2015 OFFICE/OUTPATIENT VISIT EST Diagnosis: PREPATELLAR BURSITIS[ICD9: 726.65] Diagnosis: Cellulitis of knee, left[ICD9: 682.6] Stephanie BARAKAT [facility] CPT-4: 70680 06/09/2015 ([id number]) OFFICE/OUTPATIENT VISIT EST Diagnosis: PREPATELLAR BURSITIS[ICD9: 726.65] Diagnosis: Cellulitis of knee, left[ICD9: 682.6] Lita BARAKAT [facility] CPT-4: 83461 06/07/2015 OFFICE/OUTPATIENT VISIT EST Diagnosis: Cellulitis of knee, left[ICD9: 682.6] Stephanie BARAKAT DO [facility] CPT-4: 31401 06/03/2015 ([id number]) OFFICE/OUTPATIENT VISIT EST Diagnosis: DM W/O COMPLICATION TYPE II, UNCONTROLLED[ICD9: 250.02] Diagnosis: COPD[ICD9: 496] Lita BARAKAT DO [facility] CPT- 4: 46650 06/01/2015 ([id number]) OFFICE/OUTPATIENT VISIT EST Diagnosis: COPD[ICD9: 496] Diagnosis: DYSPNEA[ICD9: 786.09] Diagnosis: DM W/O COMPLICATION TYPE II, UNCONTROLLED[ICD9: 250.02] Diagnosis: Actinic keratosis[ICD9: 702.0] Lita BARAKAT [facility] CPT-4: 13108 02/25/2015 ([id number]) OFFICE/OUTPATIENT VISIT EST Diagnosis: ASTHMA NOS[ICD9: 493.90] Diagnosis: COPD[ICD9: 496] Diagnosis: DM W/O COMPLICATION TYPE II, UNCONTROLLED[ICD9: 250.02] Lita BARAKAT [employer] [facility] CPT-4: 78110 10/27/2014 OFFICE/OUTPATIENT VISIT EST Diagnosis: DYSPNEA[ICD9: 786.09] Diagnosis: COPD[ICD9: 496] Lita BARAKAT [facility] CPT- 4: 83398 10/06/2014 ([id number]) OFFICE/OUTPATIENT VISIT EST Diagnosis: PNEUMONIA, ORGANISM[ICD9: 486] Diagnosis: COPD[ICD9: 496] Diagnosis: DYSPNEA[ICD9: 786.09] Lita BARAKAT [employer] [facility] CPT-4: 17181 09/21/2014 OFFICE/OUTPATIENT VISIT EST Diagnosis: PNEUMONIA, ORGANISM[ICD9: 486] Diagnosis: DYSPNEA[ICD9: 786.09] Diagnosis: COUGH[ICD9: 786.2] Stephanie BARAKAT [employer] [facility] CPT-4: 64153 09/08/2014 OFFICE/OUTPATIENT VISIT EST Diagnosis: COPD with exacerbation[ICD9: 491.21] Diagnosis: COUGH[ICD9: 786.2] Diagnosis: DYSPNEA[ICD9: 786.09] Stephanie BARAKAT [employer] [facility] CPT-4: 12739 09/02/2014 ([id number]) OFFICE/OUTPATIENT VISIT EST Diagnosis: DM W/O COMPLICATION TYPE II, UNCONTROLLED[ICD9: 250.02] Lita BARAKAT [employer] [facility] CPT-4: 06173 08/27/2014 ([id number]) OFFICE/OUTPATIENT VISIT EST Diagnosis: DM W/O COMPLICATION TYPE II, UNCONTROLLED[ICD9: 250.02] Diagnosis: HYPERLIPIDEMIA NEC/NOS[ICD9: 272.4] Diagnosis: HYPERTENSION[ICD9: 401.9] Diagnosis: COPD[ICD9: 496] Diagnosis: FLU VACCINE[ICD10: Z23] Lita [facility] CPT-4: 56027 08/05/2014 ([id number]) OFFICE/OUTPATIENT VISIT EST Diagnosis: COPD[ICD9: 496] Diagnosis: Lumbar degenerative disc disease[ICD9: 722.52] Lita [facility] CPT-4: 80735 05/05/2014 OFFICE/OUTPATIENT VISIT EST Diagnosis: DYSPNEA[ICD9: 786.09] Diagnosis: COPD[ICD9: 496] Lita [facility] CPT- 4: 46365 03/24/2014 ([id number]) OFFICE/OUTPATIENT VISIT EST Diagnosis: COPD[ICD9: 496] Diagnosis: DYSPNEA[ICD9: 786.09] Lita [facility] CPT-4: 44929 03/10/2014 OFFICE/OUTPATIENT VISIT EST Diagnosis: Subacromial bursitis[ICD9: 726.19] Diagnosis: Chronic low back pain[ICD9: 724.2] Diagnosis: Lumbar degenerative disc disease[ICD9: 722.52] Lita [facility] CPT-4: 06672 12/16/2013 ([id number]) OFFICE/OUTPATIENT VISIT EST Diagnosis: PHARYNGITIS, ACUTE[ICD9: 462] Diagnosis: COPD[ICD9: 496] Lita [facility] CPT- 4: 93336 10/09/2013 OFFICE/OUTPATIENT VISIT EST Diagnosis: COPD[ICD9: 496] Diagnosis: Acute exacerbation of chronic obstructive pulmonary disease (COPD)[ICD9: 491.21] Ruchi Buchanan LITA [facility] CPT-4: 31268 09/18/2013 ([id number]) OFFICE/OUTPATIENT VISIT EST Diagnosis: PNEUMONIA, ORGANISM[ICD9: 486] Diagnosis: DM W/O COMPLICATION TYPE II[ICD9: 250.00] Lita Gasper [facility] CPT-4: 72041 08/13/2013 ([id number]) OFFICE/OUTPATIENT VISIT EST Diagnosis: DM W/O COMPLICATION TYPE II, UNCONTROLLED[ICD9: 250.02] Diagnosis: HYPERLIPIDEMIA NEC/NOS[ICD9: 272.4] Diagnosis: HYPERTENSION[ICD9: 401.9] Diagnosis: DYSPNEA[ICD9: 786.09] Diagnosis: Family history of CABG[ICD9: V17.49] Lita Ramirez [facility] CPT-4: 55868 07/16/2013 ([id number]) OFFICE/OUTPATIENT VISIT EST Diagnosis: DM W/O COMPLICATION TYPE II, UNCONTROLLED[ICD9: 250.02] Diagnosis: HYPERLIPIDEMIA NEC/NOS[ICD9: 272.4] Diagnosis: HYPERTENSION[ICD9: 401.9] Lita Ramirez [facility] CPT-4: 20300 06/25/2013 OFFICE/OUTPATIENT VISIT EST Diagnosis: COUGH[ICD9: 786.2] Diagnosis: COPD[ICD9: 496] Kimberly [facility] CPT- [facility]: 93198 04/09/2013 ([id number]) OFFICE/OUTPATIENT VISIT EST Diagnosis: Muscle spasm[ICD9: 728.85] Diagnosis: ARTHRALGIA-MULTIPLE SITES[ICD9: 719.49] Lita Ramirez [facility] CPT-4: 50855 02/11/2013 OFFICE/OUTPATIENT VISIT EST Diagnosis: COPD with exacerbation[ICD9: 491.21] Diagnosis: BRONCHITIS, ACUTE[ICD9: 466.0] Ruchi Streeter [facility] CPT-4: 15954 01/31/2013 OFFICE/OUTPATIENT VISIT EST Diagnosis: COUGH[ICD9: 786.2] Diagnosis: PHARYNGITIS, ACUTE[ICD9: 462] Diagnosis: SINUSITIS, ACUTE[ICD9: 461.9] Lita Ramirez [facility] CPT-4: 97666 01/20/2013 OFFICE/OUTPATIENT VISIT EST Diagnosis: DIZZINESS/VERTIGO[ICD9: 780.4] Lita Streeter [facility] CPT-4: 43289 12/19/2012 OFFICE/OUTPATIENT VISIT EST Diagnosis: Skin lesion of left arm[ICD9: 709.9] Diagnosis: Otitis externa[ICD9: 380.10] Diagnosis: PHARYNGITIS, ACUTE[ICD9: 462] Lita [facility] CPT-4: 94372 10/21/2012 ([id number]) OFFICE/OUTPATIENT VISIT EST Diagnosis: DM W/O COMPLICATION TYPE II, UNCONTROLLED[ICD9: 250.02] Diagnosis: HYPERLIPIDEMIA NEC/NOS[ICD9: 272.4] Diagnosis: HYPERTENSION[ICD9: 401.9] [facility]: 45850 09/19/2012 ([id number]) OFFICE/OUTPATIENT VISIT EST Diagnosis: DM W/O COMPLICATION TYPE II, UNCONTROLLED[ICD9: 250.02] Diagnosis: HYPERLIPIDEMIA NEC/NOS[ICD9: 272.4] Diagnosis: COPD[ICD9: 496] Lita [facility] CPT- 4: 94660 09/18/2012 ([id number]) OFFICE/OUTPATIENT VISIT EST Diagnosis: BRONCHITIS, ACUTE[ICD9: 466.0] Diagnosis: SINUSITIS, ACUTE[ICD9: 461.9] Lita [facility] CPT-4: 04084 08/28/2012 ([id number]) OFFICE/OUTPATIENT VISIT EST Diagnosis: COPD[ICD9: 496] Diagnosis: DYSPNEA[ICD9: 786.09] Diagnosis: VAC STREP PNEUMONIAE-FLU (Medicare)[ICD9: V06.6] Lita [facility] CPT-4: 96725 07/10/2012 ([id number]) OFFICE/OUTPATIENT VISIT EST Diagnosis: DM W/O COMPLICATION TYPE II, UNCONTROLLED[ICD9: 250.02] Diagnosis: HYPERTENSION[ICD9: 401.9] Diagnosis: HYPERLIPIDEMIA NEC/NOS[ICD9: 272.4] Diagnosis: DIZZINESS/VERTIGO[ICD9: 780.4] Lita [facility] CPT-4: 62442 05/09/2012 ([id number]) OFFICE/OUTPATIENT VISIT EST Diagnosis: DM W/O COMPLICATION TYPE II, UNCONTROLLED[ICD9: 250.02] Diagnosis: HYPERLIPIDEMIA NEC/NOS[ICD9: 272.4] Diagnosis: HYPERTENSION[ICD9: 401.9] Diagnosis: MALAISE AND FATIGUE[ICD9: 780.79] Lita Segura [facility] CPT-4: 15074 05/06/2012 OFFICE/OUTPATIENT VISIT EST Diagnosis: COUGH[ICD9: 786.2] Diagnosis: SINUSITIS, ACUTE[ICD9: 461.9] Diagnosis: PHARYNGITIS, ACUTE[ICD9: 462] Lita CRAWFORD S[facility] CPT-4: 36104 10/02/2011 OFFICE/OUTPATIENT VISIT EST Diagnosis: DM W/O COMPLICATION TYPE II, UNCONTROLLED[ICD9: 250.02] Diagnosis: HYPERLIPIDEMIA NEC/NOS[ICD9: 272.4] Diagnosis: HYPERTENSION[ICD9: 401.9] Diagnosis: COPD[ICD9: 496] Ltia Jasminjosefbev CRAWFORD [facility] CPT- 4: 56151 08/07/2011 OFFICE/OUTPATIENT VISIT EST Lita Gasper [facility]ORD [facility]. [facility]DER [facility] CPT- 4: 86060 04/03/2011 ([id number]) OFFICE/OUTPATIENT VISIT EST Lita Gasper TOBAR UELINE [facility] CPT-4: 99097 01/18/2011 ([id number]) OFFICE/OUTPATIENT VISIT EST Lita Gasper TOBAR UEL[facility] CPT-4: 36113 12/19/2010 ([id number]) OFFICE/OUTPATIENT VISIT, EST Lita Jasminjosefebv ALIZE RAJESHJESSICA [facility] CPT-4: 56817 04/05/2010 ([id number]) OFFICE/OUTPATIENT VISIT, EST Lita HOLMAN [facility] CPT-4: 33864 01/13/2010 ([id number]) OFFICE/OUTPATIENT VISIT, EST Lita HERRMANN RAJESHJESSICA [facility] CPT-4: 51066 12/23/2009 ([id number]) OFFICE/OUTPATIENT VISIT, EST Lita HOLMAN S. OR[facility] [employer] CPT-4: 42747 12/22/2009 ([id number]) OFFICE/OUTPATIENT VISIT, SUZANNE ManFerdinand JASMINJOSEFBEV JOHNSON [employer] CPT-4: 27020 12/13/2009 Plan of Care Planned Activity Notes Codes Status Date Visit Diagnosis Plan: Chronic obstructiv e pulmonary disease with (acute) exacerbation Discussion: Solumedrol 125mg IM Continue SVNs every 4hrs Prednisone for 1 week COVID-19 precautions ICD-9 : 491.21 ICD-10 : J44.1 12/25/2019 Patient Education: prednisone- [employer] C[employer] [id number] https://www.[employer]/resources/getResource/61/[email or web address]-609c-57 Completed 12/25/2019 Visit Diagnosis Plan: Pain in right knee Discussion: C ontinue Hydrocodone q HS Add Baclofen 10mg q HS Call in few days on how doing ICD-9 : 719.46 ICD-10 : M25.561 12/22/2019 Visit Diagnosis Plan: Noncompliance with diabetes roslyn tment Discussion: Increase levemir to 15u sc daily and call in 1 week with BS readings ICD-9 : V15.81 ICD-10 : Z91.19 12/22/2019 Appointment: [facility]ita [facility]at [facility] [phone] [facility] [facility] 12/22/2019 Patient Education: baclofen- [employer] Coupon [id number] https://www.[employer]/resources/getResource/61/mx2ot416-gxf4-8my1-93 Completed 12/22/2019 Visit Diagnosis Plan: Basal cell carcinoma, face Discu ssion: See Dr. Swanson for excision ICD-9 : 173.31 ICD-10 : C44.310 11/12/2019 Visit Diagnosis Plan: Chronic respiratory failure with hypercapnia Discussion: Patient not wearing oxygen but when he does wear it he has been at 6L from his last exacerbation so instructed him to go back down to 3L Will see Dr. Rodriguez because he has not liked what Dr. Chacon said about his breathing and need for ventilatory assisted pressure support but that is what Dr. Rodriguez had recommended last time he saw him as well I will see him back after he sees Dr. Rodriguez ICD-9 : 518.83 ICD-10 : J96.12 11/12/2019 Visit Diagnosis Plan: Chronic airway obstruction, not elsewhere classified Discussion: Patient has been using Ventolin routinely and symbicort as a rescue--explained to him that the symbicort is his maintenance and the ventolin is his rescue ICD-9 : 496 ICD-10 : J44.9 11/12/2019 Appointment: Lita Barakat WPtel: [address] [place] [address] ACUTE ILLNESS 11/12/2019 Care Plan: Referral Order SNOMED-CT : 30 [id number] Pending 11/12/2019 Care Plan: Referral Order SNOMED-CT : 30 [id number] Pending 11/12/2019 Visit Diagnosis Plan: Chronic obstructive pulmonary di sease, unspecified Discussion: Start Pulmonary Rehab Reviewed results of CT of chest ordered by pulmonology Follow Up: 3 months ICD-9 : 496 ICD-10 : J44.9 09/11/2019 Visit Diagnosis Plan: Right thyroid nodule Discussion: Check thyroid US ICD-9 : 241.0 ICD-10 : E04.1 09/11/2019 Appointment: Lita Barakat WPtel: [address] [place], [place] [address] MEDICATION REVIEW 09/11/2019 Care Plan: US EXAM OF HEAD AND NECK LOIN C : 64477-3 Pending 09/11/2019 Visit Diagnosis Plan: Chronic bronchitis Discussion: A ugmentin for 10 days ICD-9 : 491.9 ICD-10 : J42 08/07/2019 Appointment: Lita Barakat WPtel: [address] [place] [address] ACUTE ILLNESS 08/07/2019 Visit Diagnosis Plan: Chronic obstructiv e pulmonary disease with (acute) exacerbation Discussion: solumedrol given in office. tessalon hiames sent out for cough prn and refill of symbicort sent to pharmacy. educated patient yet again, to wear oxygen at all times to reduce the amount of flare ups he has. educated patient that lack of oxygen can lead to and he verbalized understanding. educated patient also again, to take symbicort only bid. patient reported that he would use it more often at times. informed him that overuse of symbicort can cause shelter damage and the albuterol is to be used every 4 hours as needed. call office later this week with worsening or no improvement ICD-9 : 491.21 ICD-10 : J44.1 07/14/2019 Appointment: Autumn Oneil [address] [place], [place] [id number] ACUTE ILLNESS 07/14/2019 Visit Diagnosis Plan: Primary insomnia Discussion: Inc rease seroquel to 50mg po q HS--as instructed to do last week Follow Up: 2 weeks ICD-9 : 780.52 ICD-10 : F51.01 07/01/2019 Visit Diagnosis Plan: Dyspepsia and othe r specified disorders of function of stomach Discussion: Has CT scan scheduled at end of week Proceed with EGD ICD-9 : 536.8 ICD-10 : K31.89 07/01/2019 Appointment: Lita Barakat WPtel: [address] [place], [place] [phone] FOLLOW UP 07/01/2019 Care Plan: CT ABDOMEN W/O DYE LOINC : 36 103-0 Pending 07/01/2019 Care Plan: Referral Order SNOMED-CT : 30 [id number] Pending 07/01/2019 Visit Diagnosis Plan: Epigastric pain Discussion: Chec k pancreatic enzymes Check abdominal US ICD-9 : 789.06 ICD-10 : R10.13 06/24/2019 Visit Diagnosis Plan: Nausea Discussion: Hold hydrocod one Add ondansetran 4mg q HS ICD-9 : 787.02 ICD-10 : R11.0 06/24/2019 Visit Diagnosis Plan: Weight loss Discussion: Check GB US May need EGD Fwup 1 week ICD-9 : 783.21 ICD-10 : R63.4 06/24/2019 Appointment: Lita Barakat WPtel: [address] [facility] ACUTE ILLNESS 06/24/2019 Patient Education: Seroquel- [employer] C[employer]on [id number] https://www.[employer]/resources/getResource/61/6pk4t7t6-l665-58h5-83 Completed 06/24/2019 Patient Education: ondansetron HCl- [employer] C[employer]on [id number] https://www.[employer]/resources/getResource/61/6837087j-7324-81f8-c4 Completed 06/24/2019 Care Plan: US EXAM ABDOM COMPLETE LOINC : 15691-8 Pending 06/24/2019 Visit Diagnosis Plan: Diplopia Discussion: See ophtham ology May need CT scan of head ICD-9 : 368.2 ICD-10 : H53.2 06/17/2019 Visit Diagnosis Plan: Anemia Discussion: Check CBC, ir on, B12 If iron still low then will consider iron infusion ICD-9 : 285.9 ICD-10 : D64.9 06/17/2019 Visit Diagnosis Plan: Chronic insomnia Discussion: Jimbo montoya likely switch trazadone to mood stabilizer pending labs ICD-9 : 780.52 ICD-10 : F51.04 06/17/2019 Visit Diagnosis Plan: [place] Discussion: Check lab firs t then will likely do CT head ICD-9 : 296.00 ICD-10 : F30.9 06/17/2019 Visit Diagnosis Plan: Chronic obstructive pulmonary di sease, unspecified Discussion: Noncompliance Patient complains of breathing but once again not wearing his oxygen today ICD-9 : 496 ICD-10 : J44.9 06/17/2019 Appointment: Lita Barakattel: [address] [place], [place] [phone] US FOLLOW UP 06/17/2019 Appointment: Lita Barakat WPtel: [address] [place], [place] [phone] US INJECTION 06/10/2019 Appointment: Lita Barakat WPtel: [address] [place], [place] [phone] US INJECTION 06/02/2019 Appointment: Lita Barakat WPtel: [address] [place], [place] [id number] [place] INJECTION 05/27/2019 Appointment: iLta Barakat WPtel: [address] [place] [id number] [place] INJECTION 05/12/2019 Visit Diagnosis Plan: Vitamin D deficiency, unspecifie d Discussion: Check Vitamin D level ICD-9 : 268.9 ICD-10 : E55.9 05/08/2019 Visit Diagnosis Plan: Type 2 diabetes mellitus with hy perglycemia Discussion: Lab discussed Accuchecks daily Continue current meds Check CMP and HbA1C in 3mos then fwup ICD-9 : 250.02 ICD-10 : E11.65 05/08/2019 Visit Diagnosis Plan: Restless legs syndrome Discussio n: Has tried numerous meds but has been noncompliant as well ICD-9 : 333.94 ICD-10 : G25.81 05/08/2019 Visit Diagnosis Plan: Primary insomnia Discussion: Nathalie segura sent out numerous sleeping meds but has stated in past did not work ICD-9 : 780.52 ICD-10 : F51.01 05/08/2019 Visit Diagnosis Plan: Anemia, unspecified Discussion: Check CBC, iron, Ferritin, B12 ICD-9 : 285.9 ICD-10 : D64.9 05/08/2019 Appointment: Lita Barakat WPtel: [address] [place], [place] [phone] FOLLOW UP 05/08/2019 Visit Diagnosis Plan: Pain in right knee Discussion: S top tramadol and tylenol q HS Trial of Hydrocodone 10/325mg po q HS Recheck 1month ICD-9 : 719.46 ICD-10 : M25.561 04/07/2019 Appointment: Lita Barakat WPtel: [address] [place], [place] [phone] Hospital Follow Up 04/07/2019 Visit Diagnosis Plan: Chronic obstructiv e pulmonary disease with (acute) exacerbation Discussion: oxygen tank was empty upon m y arrival to room but patient states it was full when he left the house. has been using 5 liters constantly though. educated patient that the 5 liters may be too much for him due to his chronic state, so cmp and ABG ordered to rule out acute issues. educated patient on keeping oxygen on at all times and to monitor his oxygen tank routinely. ICD-9 : 491.21 ICD-10 : J44.1 03/24/2019 Visit Diagnosis Plan: Generalized anxiety disorder Dis cussion: low dose hydroxyzine given to assist with anxiety and breathing. ICD-9 : 300.02 ICD-10 : F41.1 03/24/2019 Appointment: Autumn Oneil [address] [place], [place] [id number] ACUTE ILLNESS 03/24/2019 Patient Education: hydroxyzine HCl- [employer] C[employer]on [id number] Completed 03/24/2019 Patient Education: pantoprazole- [employer] C[employer]on [id number] Completed 03/24/2019 Visit Diagnosis Plan: Dizziness and giddiness Discussi on: meclizine prescribed to take as directed for dizziness. discussed side effects with patint and to call with any concerns. educated patient that could be r/t lack of oxygen but patient states he wears his oxygen at home constantly. instructed to go to ED later today or tomorrow if worsening. ICD-9 : 780.4 ICD-10 : R42 03/21/2019 Visit Diagnosis Plan: Chronic obstructiv e pulmonary disease with (acute) exacerbation Discussion: 90 mg solumedrol given in of fice. patient's portable oxygen tank was empty. [id number] patient on importance of monitoring oxygen tank to be sure it does not become empty when he's out of the house. patient states he has an extra one in the car that he will use. ICD-9 : 491.21 ICD-10 : J44.1 03/21/2019 Appointment: Autumn Oneil [address] [place], [place] [id number] ACUTE ILLNESS 03/21/2019 Patient Education: ipratropium-albuterol- [employer] C taj [id number] https://www.[employer]/samplemd/resources/getResource/61/[email or web address]-12 Completed 03/21/2019 Visit Diagnosis Plan: Chronic obstructiv e pulmonary disease with (acute) exacerbation Discussion: Solumedrol now Use SVNs with duoneb at least q4hrs Patient is supposed to be on continuous oxygen but not wearing ICD-9 : 491.21 ICD-10 : J44.1 03/13/2019 Visit Diagnosis Plan: Candidal stomatitis Discussion: Diflucan and Nystatin susp ICD-9 : 112.0 ICD-10 : B37.0 03/13/2019 Appointment: Lita Barakat WPtel: [address] [place] [address] ACUTE ILLNESS 03/13/2019 Patient Education: losartan- [employer] C[employer]on [id number] Completed 03/13/2019 Patient Education: nystatin- [employer] C[employer]on [id number] Completed 03/13/2019 Patient Education: fluconazole- [employer] Coupon [id number] Completed 03/13/2019 Visit Diagnosis Plan: Restless legs syndrome Discussio n: Once again patient has not been taking meds as prescribed so will dc lyrica and continue with requip at 12mg po q HS and take the Sinemet TID as prescribed and stop the 3 aspirin at bedtime--can use 2 tylenol instead--informed him that he is on blood thinners so he cannot take extra aspirin ICD-9 : 333.94 ICD-10 : G25.81 03/10/2019 Visit Diagnosis Plan: Chronic obstructiv e pulmonary disease with acute lower respiratory infection Discussion: Finish meds from ER Follow Up: 1 weeks ICD-9 : 491.22 ICD-10 : J44.0 03/10/2019 Appointment: Lita Barakat WPtel: [address] [place] [address] ACUTE ILLNESS 03/10/2019 Visit Diagnosis Plan: Restless legs syndrome Discussio n: Stop requip Increase sinemet to TID Add children's chewable MV with iron BID Add magnesium oxide 400mg daily Add Lyrica 75mg po q HS Stop trazadone Recheck 3 weeks Follow Up: 3 weeks ICD-9 : 333.94 ICD-10 : G25.81 02/26/2019 Appointment: Lita Barakat WPtel: [address] [place] [address] ACUTE ILLNESS 02/26/2019 Visit Diagnosis Plan: Primary insomnia Discussion: Tri al of doxepin 10-20mg po q HS prn sleep ICD-9 : 780.52 ICD-10 : F51.01 02/13/2019 Visit Diagnosis Plan: Chronic obstructive pulmonary di sease, unspecified Discussion: Stable Discussed trip to [place]--will get oxygen setup through [facility] ICD-9 : 496 ICD-10 : J44.9 02/13/2019 Appointment: Lita Barakat WPtel: [address] [place], [place] [address] FOLLOW UP 02/13/2019 Patient Education: doxepin- [employer] Coupon [id number] https://www.[employer]/samplemd/resources/getResource/61/54h7n73r-64bk-567u-1r Completed 02/13/2019 Appointment: Lita Barakat WPtel: [address] [place], [place] [id number] [place] CANCELED 01/20/2019 Visit Diagnosis Plan: Chronic obstructive pulmonary di sease, unspecified Discussion: Stable on oxygen Given Symbicort samples Follow Up: 1 months ICD-9 : 496 ICD-10 : J44.9 01/14/2019 Appointment: Lita Barakat WPtel: [address] [place] [address] Follow Up 01/14/2019 Visit Diagnosis Plan: Chronic respiratory failure with hypoxia Discussion: Continue oxygen at 5L NC ICD-9 : 518.83 ICD-10 : J96.11 12/25/2018 Visit Diagnosis Plan: Chronic obstructiv e pulmonary disease with (acute) exacerbation Discussion: Solumedrol given and finish medrol dose pack Add spiriva daily Recheck 1month Stress importance of SVNS with albuterol q4hrs routinely and that he needs to stay home and not be traveling or driving at this time ICD-9 : 491.21 ICD-10 : J44.1 12/25/2018 Appointment: Lita Barakat WPtel: [address] [place], [place] [address] [facility] Follow Up 12/25/2018 Appointment: Lita Barakat WPtel: [address] [place], [place] [phone] [place] CANCELED 12/23/2018 Appointment: Ines Banerjee [address] [place], [place] [address] CANCELED 12/20/2018 Visit Diagnosis Plan: Essential (primary) hypertension Discussion: Patient labs performed today- pending CBC, CMP, TSH, free T4, lipid, and A1C. Will call with results and any medication adjustments. ICD-9 : 401.9 ICD-10 : I10 12/09/2018 Visit Diagnosis Plan: Acute recurrent maxillary sinusi tis Discussion: Cefdinir- take as directed. Humidifier advised. Salt water gargles for throat pain. FLuids and rest encouraged. Phenergan with codeine called into pharmacy. Advised not to take medication with Tylenol PM or other OTC cough medication. He states understanding. FU PRN. ICD-9 : 461.0 ICD-10 : J01.01 12/09/2018 Appointment: Ines Banerjee [address] [place], [place] [id number] [place] LAB 12/09/2018 Patient Education: cefdinir- [employer] Coupon [id number] https://www.[employer]/samplemd/resources/getResource/61/j6988i8w-52ln-5735-20 Completed 12/09/2018 Visit Diagnosis Plan: Candidal stomatitis Discussion: Diflucan for 5 days Hold atorvastatin while taking ICD-9 : 112.0 ICD-10 : B37.0 12/05/2018 Appointment: Lita Barakat WPtel: [facility] ACUTE ILLNESS 12/05/2018 Patient Education: fluconazole- [employer] Coupon [id number] https://www.[employer]/samplemd/resources/getResource/61/6g476h05-0hr3-50a4-22 Completed 12/05/2018 Appointment: Lita Barakat WPtel: [address] [place] [address] NO SHOW 11/11/2018 Visit Plan: Saline nasal flushes prn. Ty lenol/Motrin prn headache. Notify if persists/symptoms worsening. 10/23/2018 Visit Diagnosis Plan: Acute recurrent sinusitis, unspe cified Discussion: Prednisone ICD-9 : 461.9 ICD-10 : J01.91 10/23/2018 Visit NOS Plan: Plan Notes: Saline nasal flu shes prn. Tyle... 10/23/2018 Visit Diagnosis Plan: Pain in right knee Discussion: S eeing ortho tomorrow for injection Tramadol refilled ICD-9 : 719.46 ICD-10 : M25.561 10/23/2018 Appointment: [facility]at [facility]Ptel[facility] [address] [facility] [facility] 10/23/2018 Patient Education: prednisone- [employer] Coupon [id number] https://www.[employer]/samplemd/resources/getResource/61/wp3vc678-krod-2431-95 Completed 10/23/2018 Care Plan: A1C HPLC LOINC : 83698-5 Pending 09/10/2018 Care Plan: COMPREHEN METABOLIC PANEL [place] : 91968-4 Pending 09/10/2018 Care Plan: CBC Pending 09/10/2018 Visit Diagnosis Plan: Basal cell carcinoma of skin of scalp and neck Discussion: Referral to Dr. Swanson for removal--will need to hold aspirin for 5-7 days ICD-9 : 173.41 ICD-10 : C44.41 08/21/2018 Visit Diagnosis Plan: Restless legs syndrome Discussio n: Increase requip to 8mg q HS Call in 1 week on if helping or not ICD-9 : 333.94 ICD-10 : G25.81 08/21/2018 Appointment: L[facility] Barakat [facility]Ptel[facility] [address] [facility] [facility] 08/21/2018 Care Plan: Referral Order SNOMED-CT : 30 5486183 Pending 08/21/2018 Visit Diagnosis Plan: Chronic obstructiv e pulmonary disease with acute lower respiratory infection Discussion: Doxycycline for 1 week and c ontinue inhalers/SVNs ICD-9 : 491.22 ICD-10 : J44.0 08/07/2018 Visit Diagnosis Plan: Restless legs syndrome Discussio n: Increase requip to to 2mg q HS x1 then 3mg q HS x1 then 4mg q HS ICD-9 : 333.94 ICD-10 : G25.81 08/07/2018 Appointment: Lita Barakat WPtel: [address] [place], [place] [phone] [place] [address] FOLLOW UP 08/07/2018 Appointment: Lita Barakat WPtel: [address] [place], [place] [id number] 07/18/18 1210---see note in chart (km) CANCELED 07/18/2018 Visit Diagnosis Plan: Chronic obstructiv e pulmonary disease with acute lower respiratory infection Discussion: Solumedrol 125mg IM Change t o trelagy 1 inhalation daily Use SVNs with albuterol q4hrs To ER this weekend if worsens Monitor weight/swelling ICD-9 : 496 ICD-10 : J44.0 05/23/2018 Appointment: Lita Barakat WPtel: [address] [place] [address] ACUTE ILLNESS 05/23/2018 Patient Education: Patient Medication Summary Completed 05/23/2018 Visit Diagnosis Plan: Candidal stomatitis Discussion: Diflucan for 7 more days--hold atrovastatin while taking ICD-9 : 112.0 ICD-10 : B37.0 05/02/2018 Appointment: Lita Barakat WPtel: [address] [place], [place] [phone] FOLLOW UP 05/02/2018 Patient Education: Patient Medication Summary Completed 05/02/2018 Visit Diagnosis Plan: Chronic obstructiv e pulmonary disease with acute lower respiratory infection Discussion: 90 mg solumedrol given to bin arreguin. informed patient that the reason his symptoms are worse are due to him not taking his medications as directed. informed patient that his lungs will deteriorate faster and his symptoms will worsen if he takes his symbicort every 2 hours. informed patient that his thrush will not heal unless he takes his medications correctly. educated patient to again, use symbicort only twice a day, morning and night, and no other times. informed him that if he does become short of breath, he can take his nebulizer but only every 4 hours as needed. folow up on with dr. barakat. instructed that if he has any worsening symptoms he needs to go to ED or call clinc. ICD-9 : 491.22 ICD-10 : J44.0 04/29/2018 Visit Diagnosis Plan: Candidal stomatitis Discussion: discussed with patient again the instructions on use which is before meals and at bedtime. instructed patient to not eat or drink for at least 30 minutes after taking medication. informed patient to swish medication in mouth for at least 30 seconds and that it could take up to a week for sores to heal and to rinse mouth after each inhaler administration with water. ICD-9 : 112.0 ICD-10 : B37.0 04/29/2018 Visit Diagnosis Plan: Other retention of urine Discuss ion: patiet unable to give urine sample in office. patient was sent home with specimen cup and instructed to bring back to office once able to urinate and will send for culture. patient's was notified as well to make sure patient brings urine sample back. ICD-9 : 788.29 ICD-10 : R33.8 04/29/2018 Appointment: Autumn Oneil [address] [place] [address] ACUTE ILLNESS 04/29/2018 Patient Education: Patient Medication Summary Completed 04/29/2018 Visit Diagnosis Plan: Chronic obstructiv e pulmonary disease with acute lower respiratory infection Discussion: Kenalog/Dexamethasone May on ly use Symbicort 160/4.5 2 p BID--no more Use either SVN with albuterol or proair q4hrs prn Add Tudorza 1 p Daily To ER if worsening Recheck or to ER if worsening Use oxygen continuously Recheck 1 week ICD-9 : 496 ICD-10 : J44.0 04/22/2018 Appointment: Lita Barakattel: [address] [facility] Hospital Follow Up 04/22/2018 Patient Education: Patient Medication Summary Completed 04/22/2018 Appointment: Lita Barakat WPtel: [facility] 04/09/18 1640---see message in chart from today in regards to med (km) CANCELED 04/09/2018 Visit Diagnosis Plan: Squamous cell carcinoma of skin, unspecified Discussion: See Dr. Swanson for removal of right posterior neck lesion ICD-9 : 173.92 ICD-10 : C44.92 01/28/2018 Visit Diagnosis Plan: Unilateral primary osteoarthriti s, right knee Discussion: Had steroid injection to knee just 6 weeks ago Will send to ortho for possible Synvisc Tramadol with Tylenol QID No NSAIDs due to dyspepsia and blood thinners ICD-9 : 715.96 ICD-10 : M17.11 01/28/2018 Appointment: Lita Barakat WPtel: [address] [place] [address] ACUTE ILLNESS 01/28/2018 Patient Education: Patient Medication Summary Completed 01/28/2018 Care Plan: Referral Order SNOMED-CT : 30 4837057 Pending 01/28/2018 Care Plan: Referral Order SNOMED-CT : 30 4931773 Pending 01/28/2018 Visit Diagnosis Plan: Functional dyspepsia Discussion: Protonix Call in 1 week on how doing ICD-9 : 536.8 ICD-10 : K30 01/23/2018 Visit Diagnosis Plan: Pain in right knee Discussion: T opical voltaren gel QID ICD-9 : 719.46 ICD-10 : M25.561 01/23/2018 Appointment: Lita Barakat WPtel: [address] [place], [place] [address] ACUTE ILLNESS 01/23/2018 Patient Education: Patient Medication Summary Completed 01/23/2018 Visit Diagnosis Plan: Urinary tract infection, site no t specified Discussion: Levaquin for 1 week Follow Up: 1 weeks ICD-9 : 599.0 ICD-10 : N39.0 01/02/2018 Visit Diagnosis Plan: Chronic obstructiv e pulmonary disease with acute lower respiratory infection Discussion: Continue SVNS with albuterol q4hs Prednisone ICD-9 : 491.22 ICD-10 : J44.0 01/02/2018 Appointment: Lita Barakat WPtel: [address] [id number] ACUTE ILLNESS 01/02/2018 Patient Education: Patient Medication Summary Completed 01/02/2018 Visit Diagnosis Plan: Chronic obstructiv e pulmonary disease with (acute) exacerbation Discussion: symbicort sample given to bin arreguin and instructed again on use. rescue inhaler sent to pharmacy again and instructed on its use. singulair po was sent to pharmacy as well. all instructions were written down for patient to take home and read/understand. instructed patient to return to ER if worsening symptoms or call clinic next week. instructed him to wear a mask when working on his house in the future. educated patient that some people benefit from having a fan on in their room at night to prevent exacerbations. after sitting in room for a few minutes patient reported that he was no longer short of breath and when i informed him to use symbicort now to allow it to work in his lungs, patient refused and stated he will do it later. education was again given to patient on importance of taking medication twice a day everday to prevent future exacerbations. ICD-9 : 491.21 ICD-10 : J44.1 12/28/2017 Appointment: Autumn Oneil [address] [place] [address] Consult 12/28/2017 Patient Education: Patient Medication Summary Completed 12/28/2017 Visit Diagnosis Plan: Acute bronchitis, unspecified Di scussion: due to worsening symptoms, instructed patient to dc doxy and start levaquin daily. samples of culturelle given to patient to help improve diarrhea. inhaler prescribed to take every 4 hours while awake for the next 2 days and then every 4 hours prn. instructed to go to ED over the weekend for worsening symptoms or call office next week if not i mproved. perform deep breathing exercises at home to improve lung function and increase water intake. ICD-9 : 466.0 ICD-10 : J20.9 12/21/2017 Appointment: Autumn Oneil [facility] ACUTE ILLNESS 12/21/2017 Patient Education: Patient Medication Summary Completed 12/21/2017 Care Plan: X-RAY EXAM OF KNEE 1 OR 2 right [place] : [address]-3 Pending 12/18/2017 Visit Diagnosis Plan: Chronic obstructiv e pulmonary disease with acute lower respiratory infection Discussion: patient given rocephin injec tion in office. also, sent out oral doxy to cover other bacteria. 40 mg kenalog given at today's visit as well to assist with secretions and open airways. instructed patient that if worsening symptoms or no improvement by sunday, he needs to rtc. instructed to increase fluid intake and perform deep breathing exercises at home to prevent worsening symptoms. elevated blood pressure most likely r/t infection. ICD-9 : 491.22 ICD-10 : J44.0 12/17/2017 Visit Diagnosis Plan: Pain in right knee Discussion: x ray of knee ordered to be completed today due to fall. instructed to keep brace on knee while ambulating to assist with pain and swelling. ICD-9 : 719.46 ICD-10 : M25.561 12/17/2017 Appointment: Autumn Oneil [address] [place] [address] ACUTE ILLNESS 12/17/2017 Patient Education: Patient Medication Summary Completed 12/17/2017 Visit Diagnosis Plan: Unilateral primary osteoarthriti s, right knee Discussion: Right knee injection as above Warned of elevated BS after injection ICD-9 : 715.96 ICD-10 : M17.11 12/11/2017 Appointment: Lita Barakat WPtel: [address] [place] [address] OFFICE SURGERY 12/11/2017 Patient Education: Patient Medication Summary Completed 12/11/2017 Visit Diagnosis Plan: Actinic keratosis Discussion: Cr yotherapy as above If persists then will need excision by Dr. Swanson ICD-9 : 702.0 ICD-10 : L57.0 11/07/2017 Appointment: Lita Barakat WPtel: [address] [place] [address] ACUTE ILLNESS 11/07/2017 Patient Education: Patient Medication Summary Completed 11/07/2017 Visit Diagnosis Plan: Restless legs syndrome Discussio n: Change Gabapentin to 600mg po BID Increase Sinemet 50/200mg to BID Follow Up: 1 months ICD-9 : 333.94 ICD-10 : G25.81 10/17/2017 Visit Diagnosis Plan: Laceration without foreign body of right hand, sequela Discussion: Going for amputation of right 4th finger tomorrow morning with Dr. Hartley ICD-9 : 906.1 ICD-10 : S61.411S 10/17/2017 Appointment: Lita Barakat WPtel: [address] [place], [place] [phone] ER Follow UP 10/17/2017 Patient Education: Patient Medication Summary Completed 10/17/2017 Appointment: Lita Barakat WPtel: [facility] [place] Consult 08/15/2017 Visit Diagnosis Plan: Chronic obstructiv e pulmonary disease with acute lower respiratory infection Discussion: 40 kenalog and 4 dexmethason e given at today's visit. also prednisone for 3 days. instructed to continue with breathing treatments 4 times a day. defers blood work at this time. instructed to call dr. rodriguez with complaints today to see if he would like anything different completed. instructed that if symptoms worsen or do not improve, to go to ED. patient verbalized understanding. ICD-9 : 491.22 ICD-10 : J44.0 08/02/2017 Appointment: Autumn Oneil [address] [place] [address] ACUTE ILLNESS 08/02/2017 Patient Education: Patient Medication Summary Completed 08/02/2017 Patient Education: Patient Medication Summary Completed 07/31/2017 Care Plan: CHEST X-RAY 2VW FRONTAL&LATL LOINC : 30398-2 Pending 07/31/2017 Appointment: Lita Barakat WPtel: [address] [place], [place] [phone] [place] INJECTION 07/24/2017 Patient Education: Patient Medication Summary Completed 07/24/2017 Visit Diagnosis Plan: Chronic obstructiv e pulmonary disease with (acute) exacerbation Discussion: solumedrol 125 mg IM shot gi rody at this visit. albuterol breathing treatment given at this visit to assist with breathing. BREO inhaler sample given to patient to start today and take once daily. CXRAY ordered to be completed today to assess lung function. If worsening symptoms, go to ED. ICD-9 : 491.21 ICD-10 : J44.1 07/02/2017 Appointment: Autumn Oneil [address] [place] [address] ACUTE ILLNESS 07/02/2017 Patient Education: Patient Medication Summary Completed 07/02/2017 Care Plan: CHEST X-RAY 2VW FRONTAL&LATL LOINC : 13339-1 Pending 07/02/2017 Care Plan: MRI LUMBAR SPINE W/O DYE LOIN C : 56623-5 Pending 05/30/2017 Visit Plan: MRI at [facility]oyle codone 5.325 1 po q 4-6 hours prn pain #40 NR and Cyclobenzaprine (ERx) Continue warm packs for pain RTC if no improvement 05/29/2017 Appointment: Ruchi Buchanan WPtel: [address] [place] [address] ACUTE ILLNESS 05/29/2017 Patient Education: Patient Medication Summary Completed 05/29/2017 Appointment: Lita Barakat WPtel: [address] [place] [address] [place] CANCELED 05/24/2017 Patient Education: Patient Medication Summary Completed 05/22/2017 Care Plan: X-RAY EXAM L-S SPINE 2/3 VWS LOINC : 74883-2 Pending 05/22/2017 Appointment: Lita Barakat WPtel: [address] [place] [address] LAB 04/17/2017 Patient Education: Patient Medication Summary Completed 04/17/2017 Referral: Demetrius Rodriguez WPtel: [address] Referral Initiated 04/05/2017 Appointment: Lita Barakat WPtel: [address] [place] [address] 03/30/17 0930---spoke with patient about ointments (km Consult 03/30/2017 Appointment: Lita Barakat WPtel: [address] [place], [place] [address] 03/29/17 1320---spoke with patient, requip refilled wasn't received at pharmacy so verbally called (km) Consult 03/29/2017 Patient Education: Patient Medication Summary Completed 03/01/2017 Care Plan: CHEST X-RAY 2VW FRONTAL&LATL LOINC : 67414-2 Pending 03/01/2017 Visit Diagnosis Plan: Bursitis of left shoulder Discus yesi: Injection as above ICD-9 : 726.10 ICD-10 : M75.52 02/01/2017 Appointment: Lita Barakat WPtel: [address] [place], [place] [phone] 01/31 confirmed ~sl WORK IN 02/01/2017 Patient Education: Patient Medication Summary Completed 02/01/2017 Care Plan: X-RAY EXAM OF SHOULDER LOINC : 45495-1 Pending 01/30/2017 Visit Plan: May take OTC Tylenol/Ibuprof en as directed XRay at [facility] of left shoulder Tramadol 50mg 1 po q 6 hours prn pain called to [facility]. Sedation warning given (no driving, etc) RTC if no improvement 01/29/2017 Appointment: Ruchi Buchanan WPtel: [address] [place], [place] [phone] ACUTE ILLNESS 01/29/2017 Appointment: Ruchi Buchanan WPtel: [address] [place], [place] [phone] ACUTE ILLNESS 01/29/2017 Patient Education: Patient Medication Summary Completed 01/29/2017 Appointment: Lita Barakat WPtel: [address] [place], [place] [phone] [place] Consult 01/10/2017 Appointment: Lita Barakat WPtel: [address] [place], [place] [phone] 12/27/2016 Patient Education: Patient Medication Summary Completed 12/27/2016 Patient Education: Patient Medication Summary Completed 12/22/2016 Visit Diagnosis Plan: Other fatigue Discussion: Check CBC today/stat Use Doxepin with restless leg meds toight to help get rest/sleep ICD-9 : 780.79 ICD-10 : R53.83 12/21/2016 Visit Diagnosis Plan: Other iron deficiency anemias Di scussion: If hemoglobin still low will do transfusion ICD-9 : 280.9 ICD-10 : D50.8 12/21/2016 Appointment: Lita Barakattel: [address] [place] [address] ACUTE ILLNESS 12/21/2016 Patient Education: Patient Medication Summary Completed 12/21/2016 Appointment: Lita Barakat WPtel: [address] [place], [place] [phone] [place] CANCELED 12/18/2016 Visit Diagnosis Plan: Restless legs syndrome Discussio n: Keep requip at 4mg q HS and add silenor 3mg q HS--samples given Let us know if this does not help sleep ICD-9 : 333.94 ICD-10 : G25.81 12/14/2016 Visit Diagnosis Plan: Anemia, unspecified Discussion: Denies any hematochezia or melena Hemoglobin back to 8 yesterday so will add fusion iron daily and recheck CBC in 1 week To ER if worsening fatigue/shortness of air or evidence of bleedin g ICD-9 : 285.9 ICD-10 : D64.9 12/14/2016 Appointment: Lita Barakattel: [address] [place] [address] 12/13 confirmed ~sl WORK IN 12/14/2016 Appointment: Lita Barakat WPtel: [address] [place] [address] [place] CANCELED 12/14/2016 Patient Education: Patient Medication Summary Completed 12/14/2016 Appointment: Lita Barakattel: [address] [place] [address] [place] LAB 12/12/2016 Patient Education: Patient Medication Summary Completed 12/12/2016 Appointment: Lita Barakat WPtel: [address] [place], [place] [phone] in ER this weekend--called for reports Consult 12/11/2016 Appointment: Lita Barakat WPtel: [address] [place], [place] [phone] CANCELED 12/04/2016 Visit Diagnosis Plan: Pneumonia, unspecified organism Discussion: Called [facility] to get details on steroid and levaquin Was ordered Levaquin 750mg QD x 6 days(had a dose at discharge) and a MDP as directed Needs to finish levaquin as ordered Do feel he really needs the steroid - can try taking the MDP slower than package instructions - will increase his requip temporarily until the steroid taper is complete - can hopefully go back to his 1.5-2mg dose Needs to be wearing his O2 at all times as directed by Dr Chacon Continue breathing treatments as directed Follow up if needed ICD-9 : 486 ICD-10 : J18.9 11/14/2016 Visit Diagnosis Plan: Restless legs syndrome Discussio n: Patient has already self titrated Requip to 2mg at HS Will increase to 2.5mg at HS for now until he is done with his steroid taper Will try to decrease dose back down if possible after MDP complete ICD-9 : 333.94 ICD-10 : G25.81 11/14/2016 Appointment: Magda Toth [address] [place] [address] MEDICATION REVIEW 11/14/2016 Patient Education: Patient Medication Summary Completed 11/14/2016 Appointment: Lita Barakat WPtel: [address] [place], [place] [phone] RESCHEDULED 11/02/2016 Visit Diagnosis Plan: Candidal stomatitis Discussion: Diflucan and Nystatin Hold atorvastatin while taking diflucan ICD-9 : 112.0 ICD-10 : B37.0 10/31/2016 Appointment: Lita Barakat WPtel: [address] [place], [place] [phone] ACUTE ILLNESS 10/31/2016 Patient Education: Patient Medication Summary Completed 10/31/2016 Appointment: Lita Barakat WPtel: [address] [place] [phone] US Consult 10/23/2016 Appointment: Lita Barakat WPtel: [address] [place] [address] US CANCELED 10/18/2016 Visit Plan: Rx as above Wear O2 at all t imes as instructed by Dr Chacon Continue breathing treatments Supportive care otherwise reviewed Follow up ingrid if not improving 10/03/2016 Appointment: Lita Barakat WPtel: [address] [place], [place] [phone] [place] CANCELED 10/03/2016 Appointment: Magda Toth [address] [place] [address] ACUTE ILLNESS 10/03/2016 Patient Education: Patient Medication Summary Completed 10/03/2016 Visit Plan: Titrate requip to 1.5mg x 1 week Call if not helpful and will increase to 2mg qHS NO MORE nyquil at bedtime - discussed potential effects of decongestants on heart, oversedating himself, etc Will increase requip, then amitriptyline if needed to desired effect 09/04/2016 Appointment: Magda Toth [address] [place] [address] ACUTE ILLNESS 09/04/2016 Patient Education: Patient Medication Summary Completed 09/04/2016 Visit Plan: Stop requip and try elavil C ryotherapy as above See ENT for removal of right ear lesion 08/22/2016 Appointment: Lita Barakat WPtel: [address] [place] [address] ACUTE ILLNESS 08/22/2016 Patient Education: Patient Medication Summary Completed 08/22/2016 Visit Plan: Trial of requip 1mg q HS Res tart zoloft Recheck 1month 08/10/2016 Appointment: Lita Barakat WPtel: [address] [place] [address] ACUTE ILLNESS 08/10/2016 Patient Education: Patient Medication Summary Completed 08/10/2016 Visit Plan: Stop HCTZ Flagyl for diarrhe a Hydrate Discussed meds for restless legs Zofran prn Nausea 07/06/2016 Appointment: Lita Barakat WPtel: [address] [place], [place] [phone] 07/05 confirmed~ Hospital Follow Up 07/06/2016 Patient Education: Patient Medication Summary Completed 07/06/2016 Visit Plan: Reviewed with Dr Gasper Palacios sidering his recent history, instructed him to go straight to the ER called to notify her so she can meet him there 06/22/2016 Appointment: Magda Toth [address] [place] [address] ACUTE ILLNESS 06/22/2016 Patient Education: Patient Medication Summary Completed 06/22/2016 Visit Plan: Continue current meds Prevna r 13 and High Dose Flu given 06/13/2016 Appointment: Lita Barakat WPtel: [address] [place], [place] [phone] 06/13 confirmed~ WORK IN 06/13/2016 Patient Education: Patient Medication Summary Completed 06/13/2016 Appointment: Lita Barakat WPtel: [address] [facility] just went over current medications CANCELED 06/08/2016 Visit Plan: Reviewed POC with Dr Barakat Stat cbc, cmp, d dimer, troponin, bnp, ekg, cxr If any worsening of symptoms while awaiting results, patient instructed to go to ER or call 911 06/01/2016 Appointment: Magda Toth [address] [place], [place] [id number] ACUTE ILLNESS 06/01/2016 Patient Education: Patient Medication Summary Completed 06/01/2016 Referral: José Miguel Swanson WPtel: [address] 04/[address] swanson's office, patient is s cheduled for 05/11 at 10:45am. notes and demographics have been faxed, and the patient is informed of the date and time. -sp Appointment Requested 05/11/2016 Visit Plan: Does not appear to be a ceru men issue this time Encouraged to take his antihistamine daily in the meantime Referral to Dr Swanson for further eval and treatment 04/26/2016 Appointment: Magda Toth [address] [place], [place] [phone] ACUTE ILLNESS 04/26/2016 Patient Education: Patient Medication Summary Completed 04/26/2016 Care Plan: Referral Order SNOMED-CT : [id number] Pending 04/26/2016 Visit Plan: Left ear flushed after conse nt with warm water with peroxide with ear syringe Patient tolerated well Ear exam is wnl following flushing Follow up PRN 04/05/2016 Appointment: Magda Toth [address] [place], [place] [phone] ACUTE ILLNESS 04/05/2016 Patient Education: Patient Medication Summary Completed 04/05/2016 Visit Plan: Increase Levemir to 25u sc d aily Increase sertraline to 2 full tablets daily--200mg Debrox or cerumenex to bilateral ears q HS for 3 nights then flush or fwup for fushing Check lab in 2mos then fwup 04/03/2016 Appointment: Lita Barakat WPtel: [address] [place], [place] [phone] 03/31 7/8 lm ~sl FOLLOW UP 04/03/2016 Patient Education: Patient Medication Summary Completed 04/03/2016 Visit Plan: Patient informed of correct dosage of levemir and how to administer. Patient verbalizes understanding and will call if any questions/concerns. 10 Units of Levemir given in office SC to right lower abdom en. Patient tolerated well. Site without redness/irritation. 03/13/2016 Appointment: Lita Barakat WPtel: [address] [place], [place] [phone] SPECIAL 03/13/2016 Patient Education: Patient Medication Summary Completed 03/13/2016 Appointment: Lita Barakat WPtel: [address] [place], [place] [phone] LAB 03/06/2016 Patient Education: Patient Medication Summary Completed 03/06/2016 Visit Plan: Patient saw Dr. Chacon this week and was given prednisone taper for COPD Continue current meds Accuchecks daily Patient will return on Sunday morning for fasting lab incuding CBC, CMP, TSH, free T4, HbA1C, Lipids, Testosterone, PSA 03/02/2016 Appointment: Lita Barakat WPtel: [address] [place] [address] 03/01 confirmed ~sl FOLLOW UP 03/02/2016 Patient Education: Patient Medication Summary Completed 03/02/2016 Visit Plan: Right bottom of heal about a satya of insert of plantar fascia cleansed with alcohol and betadine and injected with 1cc 1% lidocaine with 1mg Dexamethasone and 10mg kenalog, tolerated well with no complications, neosporin and bandage applie Start Mobic and Tullicups Call in 1 week on how doing 02/17/2016 Appointment: Lita Barakat WPtel: [address] [place] [address] WORK IN 02/17/2016 Patient Education: Patient Medication Summary Completed 02/17/2016 Visit Plan: Xrays to further evaluate Alvarez spect heel spur(s) Will call with results Has had injections in the past that were helpful Dr Barakat can do them or can refer to podiatry if warranted 02/14/2016 Appointment: Magda Toth [address] [place] [address] ACUTE ILLNESS 02/14/2016 Patient Education: Patient Medication Summary Completed 02/14/2016 Visit Plan: Increase Zoloft to 150mg cooper ly 01/31/2016 Appointment: Lita Barakat WPtel: [address] [place] [address] 01/26 confirmed `sl FOLLOW UP 01/31/2016 Patient Education: Patient Medication Summary Completed 01/31/2016 Visit Plan: Decrease citalopram to 20mg q AM for 1 week then stop Start zoloft 50mg q HS for 1 week then increase to 100mg q HS 12/30/2015 Appointment: Lita Barakat WPtel: [address] [place], [place] [address] 12/28 confirmed~sl ACUTE ILLNESS 12/30/2015 Patient Education: Patient Medication Summary Completed 12/30/2015 Visit Plan: Check Neck US 12/16/2015 Appointment: Lita Barakat WPtel: [address] [place], [place] [id number] US 12/14 lm ~sl 12/15 confirmed-sp FOLLOW UP 12/16/2015 Patient Education: Patient Medication Summary Completed 12/16/2015 Care Plan: US EXAM OF HEAD AND NECK LOIN C : 16284-5 Ordered 12/16/2015 Appointment: Stephanie Rios WPtel: [address] [place], [place] [phone] 12/09 confirmed-sp 12/12 lm ~sl Patient r mannie call and stated he just plain forgot ~sl FOLLOW UP 12/13/2015 Visit Plan: Had changing lesions of fore head and left mastoid area removed earlier today. Follow-up in one week Will proceed with soft tissue ultrasound of neck/ left cervical lymph node if no improvement antibiotics Clindamycin 300mg PO TID 12/06/2015 Appointment: Stephanie Rios WPtel: [address] [place], [place] [phone] ACUTE ILLNESS 12/06/2015 Patient Education: Patient Medication Summary Completed 12/06/2015 Referral: Lisbeth Darby WPtel: [facility] [address] [facility] 11/18/15 called luther at [facility] office and confirmed time and date of appointment with patient~sl Initiated 11/18/2015 Visit Plan: Referral to Dermatology for removal of facial skin lesions Cefdinir PO bid Topical Mupirocin to skin lesions bid 11/15/2015 Appointment: Stephanie Rios WPtel: [address] [place], [place] [id number] ACUTE ILLNESS 11/15/2015 Patient Education: Patient Medication Summary Completed 11/15/2015 Visit Plan: Continue current meds Accuch ecks daily Fwup with ophthamology as scheduled Will check lab in 3mos then fwup due to recent meds that will affect blood sugar 10/05/2015 Appointment: Lita Barakat WPtel: [address] [place], [place] [phone] 10/04/15 appt confirmed cn Annual Well Visit 08/2016 Patient Education: Patient Medication Summary Completed 10/05/2015 Visit Plan: Trajenta -1 sample box given Return visit in 6 weeks for fasting labs Notify for worsening symptoms such as Increased redness, swelling, pain or drainage of Rt. knee 07/22/2015 Appointment: Stephanie Rios WPtel: [address] [place], [place] [phone] 07/21 vm left cn FOLLOW UP 07/22/2015 Patient Education: Patient Medication Summary Completed 07/22/2015 Visit Plan: Continue to change dressing twice daily and apply Mupirocin Complete Doxycycline as directed. Follow-up for worsening symptoms, such as increased swelling, redness or pain. 07/01/2015 Appointment: Stephanie Rios WPtel: [address] [place], [place] [phone] FOLLOW UP 07/01/2015 Patient Education: Patient Medication Summary Completed 07/01/2015 Visit Plan: Pressure dressing applied to draining wound left knee. Instructed to change dressing twice daily and continue Mupirocin topical Doxycycline PO bid x 10 days Wound culture obtained. Wound tissue sent to pathology Follow-up in 3 days 06/28/2015 Appointment: Stephanie Rios WPtel: [address] [place], [place] [phone] ACUTE ILLNESS 06/28/2015 Patient Education: Patient Medication Summary Completed 06/28/2015 Visit Plan: Complete antibiotics Follow- up for increased tenderness, swelling or drainage. 06/09/2015 Appointment: Stephanie Rios WPtel: [address] [place], [place] [phone] 06/08/15 lm FOLLOW UP 06/09/2015 Patient Education: Patient Medication Summary Completed 06/09/2015 Visit Plan: Apply pressure dressing toda y Continue antibiotics and topical Mupirocin Follow-up in 2 days Bursa drained from open area using pressure--serosanguinous drainage 06/07/2015 Appointment: Stephanie Rios WPtel: [address] [place], [place] [phone] 06/04/15 confirmed with patient FOLLOW UP 0 06/07/2015 Patient Education: Patient Medication Summary Completed 06/07/2015 Visit Plan: Wound culture Lt. knee Apply mupirocin to open wound bid Clindamycin 600 mg PO bid x 10 days Follow-up on Sunday06/03/2015 Appointment: Stephanie Rios WPtel: [address] [place], [place] [phone] ACUTE ILLNESS 06/03/2015 Patient Education: Patient Medication Summary Completed 06/03/2015 Visit Plan: Accuchecks daily Check CMP, HbA1C today Patient is noncompliant with meds and diet but patient says he is doing everything he is supposed to do Wants to try performomist instead of albuterol in SVN 06/01/2015 Appointment: Lita Barakat WPtel: [address] [place], [place] [phone] 05/28 appt confirmed cn FOLLOW UP 06/01/20 Patient Education: Patient Medication Summary Completed 06/01/2015 Visit Plan: Change Breo Ellipta to Advai r 500/50 1 p BID this next month Continue turdoza Use albuterol prn Check CMP, HbA1C today Accuchecks daily Cryotherapy as above 02/25/2015 Appointment: Lita Barakat WPtel: [address] [place], [place] [phone] 02/24 appt confirmed and explained needed payment he said ok FOLLOW UP 02/25/2015 Patient Education: Patient Medication Summary Completed 02/25/2015 Referral: Lopez Chacon1 [facility] C&D [id number] Will put patient on cancellation list Initiated 12/08/2014 Appointment: Lita Barakat WPtel: [facility] Hospital Follow Up 10/29/2014 Visit Plan: Finish prednisone Continue S VNs with albuterol QID See pulmonology and start Pulmonary rehab Once again discussed taking it easy this winter--that he is high risk for exacerbation 10/27/2014 Appointment: Lita Barakat WPtel: [address] [place], [place] [phone] FOLLOW UP 10/27/2014 Patient Education: Patient Medication Summary Completed 10/27/2014 Appointment: Lita Barakat WPtel: [address] [place], [place] [phone] FOLLOW UP 10/26/2014 Appointment: Stephanie Rios WPtel: [address] [place], [place] [phone] WORK IN 10/21/2014 Patient Education: Patient Medication Summary Completed 10/21/2014 Patient Education: Patient Medication Summary Completed 10/19/2014 Visit Plan: Continue oxygen and SVNS wit h duoneb Increase farxiga to 10mg daily Diflucan 100mg daily for 1week 10/06/2014 Appointment: Lita Barakat WPtel: [address] [place], [place] [phone] Moved appt time to 2:45pm FOLLOW UP 2014 Patient Education: Patient Medication Summary Completed 10/06/2014 Visit Plan: Finish omnicef Continue Breo BID and Turdoza Use SVNS with duoneb at least TID for next 2weeks then go to prn 09/21/2014 Appointment: Lita Barakat WPtel: [address] [place], [place] [phone] Hospital Follow Up 09/21/2014 Patient Education: Patient Medication Summary Completed 09/21/2014 Patient Education: [facility] - [employer]aving [employer] - Ventolin HFA - 18+ - Dynamic Portal ID Completed 09/21/2014 Appointment: Stephanie Rios WPtel: [address] [place], [place] [phone] Scheduled by 09/07 patient rescheduled to 09/08 with Stephanie. Hospital Follow Up 09/08/2014 Patient Education: Patient Medication Summary Completed 09/08/2014 Appointment: Stephanie Rios WPtel: [address] [place], [place] [phone] FOLLOW UP 09/02/2014 Patient Education: Patient Medication Summary Completed 09/02/2014 Patient Education: [employer] - Antibi otics, Analgesics 18+, Oral Contraceptives F 18+ Completed 09/02/2014 Appointment: Lita Barakat WPtel: [address] [place], [place] [phone] [place] UA 08/27/2014 Patient Education: Patient Medication Summary Completed 08/27/2014 Visit Plan: Lab discussed Add zocor 20mg daily with Vit D 1000u and Coenzyme Q- 10 200mg daily Continue current meds and accuchecks daily Pt does not want more meds for diabetes at this time--wants to work on diet change next 3mos Trial of trazadone 75mg po q HS prn sleep 08/10/2014 Appointment: Lita Barakat WPtel: [address] [place] [address] Annual Well Visit 08/10/2014 Patient Education: Patient Medication Summary Completed 08/10/2014 Appointment: Lita Barakat WPtel: [address] [place], [place] [phone] [place] LAB 08/05/2014 Patient Education: Patient Medication Summary Completed 08/05/2014 Visit Plan: ECHO results reviewed Contin ue Breo and Turdoza Pt starts PT this afternoon for back--has had one epidural with no help in pain 05/05/2014 Appointment: Lita Barakat WPtel: [address] [place], [place] [phone] FOLLOW UP 05/05/2014 Patient Education: Patient Medication Summary Completed 05/05/2014 Visit Plan: Continue Breo and Turdoza Camargo s heart tests scheduled next week Will see surgeon for removal of skin cancer to neck after done with cardiac workup 03/24/2014 Appointment: Lita Barakat WPtel: [address] [place], [place] [phone] [place] FOLLOW UP 03/24/2014 Patient Education: Patient Medication Summary Completed 03/24/2014 Visit Plan: Proceed with cardiology eval uation as patient is has numerous risk factors for CAD Change Symbicort to Breo 1p BID and add Turdorza 1p BID Recheck in weeks Check 2-D ECHO and lexiscan 03/10/2014 Appointment: Lita Barakat WPtel: [address] [place], [place] [phone] FOLLOW UP 03/10/2014 Patient Education: Patient Medication Summary Completed 03/10/2014 Visit Plan: Shoulder injection as above Back brace to use when doing any lifting for stability 12/16/2013 Appointment: Lita Barakat WPtel: [address] [place], [place] [phone] ACUTE ILLNESS 12/16/2013 Patient Education: Patient Medication Summary Completed 12/16/2013 Visit Plan: Continue symbicort and Turdo za Salt water gargles Omnicef 300mg 2 po daily for 1wk Phenergan with codeine 10/09/2013 Appointment: Lita Barakat WPtel: [address] [place] [phone] WORK IN 10/09/2013 Patient Education: Patient Medication Summary Completed 10/09/2013 Appointment: Ruchi Buchanan WPtel: [address] [place], [place] [phone] ACUTE ILLNESS 09/18/2013 Patient Education: Patient Medication Summary Completed 09/18/2013 Visit Plan: Check on repeat CXR Finish a bx Start Tradjenta to replace metformin 08/13/2013 Appointment: Lita Barakat WPtel: [address] [place] [phone] 08/12 Hospital Follow Up 08/13/2013 Patient Education: Patient Medication Summary Completed 08/13/2013 Visit Plan: Admit to hospital 08/06/2013 Appointment: Stephanie Rios WPtel: [address] [place], [place] [phone] ACUTE ILLNESS 08/06/2013 Patient Education: Patient Medication Summary Completed 08/06/2013 Visit Plan: Continue current meds Contin ue accuchecks daily Proceed with stress test due to high risk for CAD 07/16/2013 Appointment: Lita Barakat WPtel: [address] [place] [address] FOLLOW UP 07/16/2013 Patient Education: Patient Medication Summary Completed 07/16/2013 Appointment: Lita Barakat WPtel: [address] [place] [address] LAB 06/25/2013 Patient Education: Patient Medication Summary Completed 06/25/2013 Visit Plan: prednisone and azithromycin. Doing CBC and mycoplasma blood draw. Will continue inhaler and albuterol breathing treatments. 04/09/2013 Appointment: Kimberly Villalba WPtel: [address] [place] [address] ACUTE ILLNESS 04/09/2013 Patient Education: Patient Medication Summary Completed 04/09/2013 Appointment: Lita Barakat WPtel: [address] [place] [address] ACUTE ILLNESS 02/11/2013 Patient Education: Patient Medication Summary Completed 02/11/2013 Appointment: Ruchi Buchanan WPtel: [address] [place] [address] ACUTE ILLNESS 01/31/2013 Patient Education: Patient Medication Summary Completed 01/31/2013 Visit Plan: Cefdinir and medrol dose pac k. Codeine/guiaf cough syrup. Has colonoscopy on Sunday. Pt. is to notify if fever occurs or symptoms worsen. Hydration and rest. 01/20/2013 Appointment: Kimberly Villalba WPtel: [address] [place] [address] ACUTE ILLNESS 01/20/2013 Patient Education: Patient Medication Summary Completed 01/20/2013 Visit Plan: Scopalamine patch and vestib ular exercises 12/19/2012 Appointment: Lita Barakat WPtel: [address] [place] [address] ACUTE ILLNESS 12/19/2012 Patient Education: Patient Medication Summary Completed 12/19/2012 Visit Plan: Dr. Swanson consult if no impr ovement in hearing. Pt. reports he will notify if no better in one week. Willam consult for skin lesion. 10/21/2012 Appointment: Kimberly Villalba WPtel: [address] [place], [place] [phone] ACUTE ILLNESS 10/21/2012 Patient Education: Patient Medication Summary Completed 10/21/2012 Appointment: Lita Barakat WPtel: [address] [place] [phone] [place] LAB 09/19/2012 Patient Education: Patient Medication Summary Completed 09/19/2012 Visit Plan: Check fasting lab in AM--CMP , Lipids, HbA1C 09/18/2012 Appointment: Lita Barakat WPtel: [address] [place] [phone] FOLLOW UP 09/18/2012 Patient Education: Patient Medication Summary Completed 09/18/2012 Appointment: Lita Barakat WPtel: [address] [place] [phone] appt time scheduled sooner FOLLOW UP 09/05 Visit Plan: Doxycycline and Prednisone I ncrease SVN to QID Add back Symbicort 160/4.5 2 p BID 08/28/2012 Appointment: Lita Barakat WPtel: [address] [place] [phone] [place] FOLLOW UP 08/28/2012 Patient Education: Patient Medication Summary Completed 08/28/2012 Appointment: Lita Barakat WPtel: [address] [place] [phone] Annual Well Visit 07/10/2012 Patient Education: Patient Medication Summary Completed 07/10/2012 Visit Plan: Finish Z-pack Add Nasonex Ad d Meclizine Vestibular exercises Continue current meds and accuchecks Check lab and fwup in 4mos 05/09/2012 Appointment: Lita Barakat WPtel: [address] [place], [place] [id number] US number no longer works FOLLOW UP 2 Patient Education: Patient Medication Summary Completed 05/09/2012 Appointment: Lita Barakat WPtel: [address] [place] [phone] US LAB 05/06/2012 Patient Education: Patient Medication Summary Completed 05/06/2012 Appointment: Lita Barakat WPtel: [address] [place] [phone] [place] LAB 05/02/2012 Appointment: Lita Barakat WPtel: [address] [place] [phone] [place] INJECTION 02/05/2012 Patient Education: Patient Medication Summary Completed 02/05/2012 Visit Plan: cefdinir. Will focus on rest and fluids. Pt. reports he is using breathing treatments as needed. Pt. will monitor for worsening symptoms or fever. 10/02/2011 Appointment: Kimberly Villalba WPtel: [address] [place], [place] [phone] ACUTE ILLNESS 10/02/2011 Patient Education: Patient Medication Summary Completed 10/02/2011 Appointment: Lita Barakat WPtel: [address] [place] [phone] US INJECTION 08/10/2011 Patient Education: Patient Medication Summary Completed 08/10/2011 Visit Plan: Continue current meds Restar t Advair Restart exercise Flu shot given 08/07/2011 Appointment: Lita Barakat WPtel: [address] [place] [phone] [place] FOLLOW UP 08/07/2011 Patient Education: Patient Medication Summary Completed 08/07/2011 Appointment: Lita Barakat WPtel: [address] [place] [phone] [place] LAB 07/26/2011 Patient Education: Patient Medication Summary Completed 07/26/2011 Visit Plan: ALEKSANDER Carmen Continue Metformin but change to BID Add Lantus 25u sc q PM BS readings in 1wk 04/03/2011 Appointment: Lita Barakat WPtel: [address] [place] [address] ACUTE ILLNESS 04/03/2011 Patient Education: Patient Medication Summary Completed 04/03/2011 Appointment: Lita Barakat WPtel: [address] [place] [phone] US INJECTION 01/19/2011 Patient Education: Patient Medication Summary Completed 01/19/2011 Appointment: Lita Barakat WPtel: [address] [place] [address] ACUTE ILLNESS 01/18/2011 Patient Education: Patient Medication Summary Completed 01/18/2011 Appointment: Lita Barakat WPtel: [address] [place] [address] US INJECTION 12/21/2010 Patient Education: Patient Medication Summary Completed 12/21/2010 Appointment: Lita Barakat WPtel: [address] [place] [address] US FOLLOW UP 12/19/2010 Patient Education: Patient Medication Summary Completed 12/19/2010 Appointment: Lita Barakat WPtel: [address] [place] [phone] [place] LAB 12/07/2010 Patient Education: Patient Medication Summary Completed 12/07/2010 Appointment: Kimberly Villalba WPtel: [address] [place], [place] [phone] ACUTE ILLNESS 04/05/2010 Patient Education: Patient Medication Summary Completed 04/05/2010 Appointment: Lita Barakat WPtel: [address] [place] [address] US WORK IN 03/14/2010 Patient Education: Patient Medication Summary Completed 03/14/2010 Appointment: Lita Barakat WPtel: [address] [place] [phone] [place] LAB 03/02/2010 Visit Plan: HbA1C in 3mos. Continue Accu checks BID alternating times. Switch lexapro to celexa 01/13/2010 Appointment: Lita Barakat WPtel: [address] [place], [place] [phone] FOLLOW UP 01/13/2010 Patient Education: Patient Medication Summary Completed 01/13/2010 Appointment: Lita Barakat WPtel: [address] [place], [place] [phone] FOLLOW UP 01/11/2010 Visit Plan: Pt. will continue the Avalox and Doxycycline regimen as prescribed the previous day. He has been advised to continue inhalers, breathing treatments and oxygen therapy for at least the weekend. Moderate activity without strenuous exercise. The pt. will seek immediate re-eval if his symptoms worsen. 12/23/2009 Appointment: Kimberly Villalba WPtel: [address] [place] [address] FOLLOW UP 12/23/2009 Patient Education: Patient Medication Summary Completed 12/23/2009 Visit Plan: Pt. is given 1 Gram Rocephin IM, 125 mg Solu-Medrol IM, 7 day sample of Avelox, continue Doxycycline 100 mg BID. Labs drawn are: CBC, CRP. Discussed with pt (Dr. Barakat present/evaluation) that hospitilization may be necessary. Pt. strongly wishes to not be hospitalized. Pt. is instructed to go home and continue oxygen therapy at 2L per nasal cannula. Pt. is to seek immediate re-eval if symptoms continue to worsen or if they change. Pt. is scheduled for further eval tomorrow morning. 12/22/2009 Appointment: Kimberly Villalba WPtel: [address] [place], [place] [phone] ACUTE ILLNESS 12/22/2009 Patient Education: Patient Medication Summary Completed 12/22/2009 Appointment: Kimberly Villalba WPtel: [address] [place], [place] [phone] FOLLOW UP 12/21/2009 App[facility]ment: [facility] [phone] [id number] [place] [facility] 12/16/2009 Patient Education: Patient Medication Summary Completed 12/16/2009 Appointment: Kimberly Villalba WPtel: [phone] [id number] [place] ACUTE ILLNESS 12/13/2009 Patient Education: Patient Medication Summary Completed 12/13/2009 Care Plan: X-RAY EXAM OF SHOULDER lt shoulder (pain ra diates across the shoulder) Hand carried orders to [facility] LOINC : 50625-4 Ordered 12/13/2009 Care Plan: X-RAY EXAM THORAC SPINE 2VWS Hand carried order LOINC : 78304-9 Ordered 12/13/2009 Care Plan: X-RAY EXAM RIBS UNI 2 VIEWS Posterior ribs of lt. side Pt. hand carries order to [facility] LOINC : 01110-9 Ordered 12/13/2009 Referral: José Miguel Swanson WPtel: [address] [address] [place] Referral Appointment Requested Referral: José Miguel Swanson WPtel: [address] [address] [place] Referral Appointment Requested Referral: Chandu Quarles WPtel: [phone] Quarles for screening colonoscopy. P atient notified that [facility] will book appt with him Initiated Referral: Santosh Machado WPtel: [address] [id number] [place] Referral Appointment Requested Referral: José Miguel Swanson WPtel: [address] [address] [place] Referral Initiated Referral: Lopez Chacon [address] [facility] C&D [id number] [place] Referral Initiated Referral: Demetrius Rodriguez WPtel: [phone] [address] [place] Referral Appointment Requested Referral: José Miguel Swanson WPtel: [address] [address] [place] Referral Appointment Requested Referral: José Miguel Swanson WPtel: [address] [facility] 3 [id number] [place] Referral Initiated Instructions Comment . Saline nasal flushes prn. Tylenol/Motr in prn headache. Notify if persists/symptoms worsening. . MRI at [facility] Hydrocodone 5.325 1 po q 4-6 hours prn pain #40 NR and Cyclobenzaprine (ERx) Continue warm packs for pain RTC if no improvement . May take OTC Tylenol/Ibuprofen as dire cted XRay at of left shoulder Tramadol 50mg 1 po q 6 hours prn pain called to [facility]. Sedation warning given (no driving, etc) RTC if no improvement . Rx as above Wear O2 at all times as instructed by Dr Chacon Continue breathing treatments Supportive care otherwise reviewed Follow up ingrid if not improving . Titrate requip to 1.5mg x 1 week Call if not helpful and will increase to 2mg qHS NO MORE nyquil at bedtime - discussed potential effects of decongestants on heart, oversedating himself, etc Will increase requip, then amitriptyline if needed to desired effect . Stop requip and try elavil Cryotherapy as above See ENT for removal of right ear lesion . Trial of requip 1mg q HS Restart zoloft Recheck 1month . Stop HCTZ Flagyl for diarrhea Hydrate Discussed meds for restless legs Zofran prn Nausea . Reviewed with Dr Barakat Considering his recent history, instructed him to go straight to the ER called to notify her so she can meet him there . Continue current meds Prevnar 13 and High Dose Flu given . Reviewed POC with Dr Barakat Stat cbc, cmp, d dimer, troponin, bnp, ekg, cxr If any worsening of symptoms while awaiting results, patient instructed to go to ER or call 911 . Does not appear to be a cerumen issue this time Encouraged to take his antihistamine daily in the meantime Referral to Dr Swanson for further eval and treatment . Left ear flushed after consent with wa rm water with peroxide with ear syringe Patient tolerated well Ear exam is wnl following flushing Follow up PRN . Increase Levemir to 25u sc daily Increase sertraline to 2 full tablets daily--200mg Debrox or cerumenex to bilateral ears q HS for 3 nights then flush or fwup for fushing Check lab in 2mos then fwup . Patient informed of correct dosage of levemir and how to administer. Patient verbalizes understanding and will call if any questions/concerns. 10 Units of Levemir given in office SC to right lower abdomen. Patient tolerated well. Site without redness/irritation. . Patient saw Dr. Chacon this week and w as given prednisone taper for COPD Continue current meds Accuchecks daily Patient will return on Sunday morning for fasting lab incuding CBC, CMP, TSH, free T4, HbA1C, Lipids, Testosterone, PSA . Right bottom of heal about area of ins ert of plantar fascia cleansed with alcohol and betadine and injected with 1cc 1% lidocaine with 1mg Dexamethasone and 10mg kenalog, tolerated well with no complications, neosporin and bandage applie Start Mobic and Tullicups Call in 1 week on how doing . Xrays to further evaluate Suspect heel spur(s) Will call with results Has had injections in the past that were helpful Dr Barakat can do them or can refer to podiatry if warranted . Increase Zoloft to 150mg daily . Decrease citalopram to 20mg q AM for 1 week then stop Start zoloft 50mg q HS for 1 week then increase to 100mg q HS . Check Neck US . Had changing lesions of forehead and l eft mastoid area removed earlier today. Follow-up in one week Will proceed with soft tissue ultrasound of neck/ left cervical lymph node if no improvement antibiotics Clindamycin 300mg PO TID . Referral to Dermatology for removal of facial skin lesions Cefdinir PO bid Topical Mupirocin to skin lesions bid . Continue current meds Accuchecks daily Fwup with ophthamology as scheduled Will check lab in 3mos then fwup due to recent meds that will affect blood sugar . Trajenta -1 sample box given Return visit in 6 weeks for fasting labs Notify for worsening symptoms such as Increased redness, swelling, pain or drainage of Rt. knee . Continue to change dressing twice trung y and apply Mupirocin Complete Doxycycline as directed. Follow-up for worsening symptoms, such as increased swelling, redness or pain. . Pressure dressing applied to draining wound left knee. Instructed to change dressing twice daily and continue Mupirocin topical Doxycycline PO bid x 10 days Wound culture obtained. Wound tissue sent to pathology Follow-up in 3 days . Complete antibiotics Follow-up for increased tenderness, swelling or drainage. . Apply pressure dressing today Continue antibiotics and topical Mupirocin Follow-up in 2 days Bursa drained from open area using pressure--serosanguinous drainage . Wound culture Lt. knee Apply mupirocin to open wound bid Clindamycin 600 mg PO bid x 10 days Follow-up on Sunday . Accuchecks daily Check CMP, HbA1C today Patient is noncompliant with meds and diet but patient says he is doing everything he is supposed to do Wants to try performomist instead of albuterol in SVN . Change Breo Ellipta to Advair 500/50 1 p BID this next month Continue turdoza Use albuterol prn Check CMP, HbA1C today Accuchecks daily Cryotherapy as above . Finish prednisone Continue SVNs with albuterol QID See pulmonology and start Pulmonary rehab Once again discussed taking it easy this winter--that he is high risk for exacerbation . Continue oxygen and SVNS with duoneb Increase farxiga to 10mg daily Diflucan 100mg daily for 1week . Finish omnicef Continue Breo BID and Turdoza Use SVNS with duoneb at least TID for next 2weeks then go to prn . Lab discussed Add zocor 20mg daily with Vit D 1000u and Coenzyme Q-10 200mg daily Continue current meds and accuchecks daily Pt does not want more meds for diabetes at this time--wants to work on diet change next 3mos Trial of trazadone 75mg po q HS prn sleep . ECHO results reviewed Continue Breo and Turdoza Pt starts PT this afternoon for back--has had one epidural with no help in pain . Continue Breo and Turdoza Has heart tests scheduled next week Will see surgeon for removal of skin cancer to neck after done with cardiac workup . Proceed with cardiology evaluation as patient is has numerous risk factors for CAD Change Symbicort to Breo 1p BID and add Turdorza 1p BID Recheck in weeks Check 2-D ECHO and lexiscan . Shoulder injection as above Back brace to use when doing any lifting for stability . Continue symbicort and Turdoza Salt water gargles Omnicef 300mg 2 po daily for 1wk Phenergan with codeine . Check on repeat CXR Finish abx Start Tradjenta to replace metformin . Admit to hospital . Continue current meds Continue accuchecks daily Proceed with stress test due to high risk for CAD . prednisone and azithromycin. Doing CBC and mycoplasma blood draw. Will continue inhaler and albuterol breathing treatments. . Cefdinir and medrol dose pack. Codeine /guiaf cough syrup. Has colonoscopy on Sunday. Pt. is to notify if fever occurs or symptoms worsen. Hydration and rest. . Scopalamine patch and vestibular exerc ises . Dr. Swanson consult if no improvement in hearing. Pt. reports he will notify if no better in one week. [facility] consult for skin lesion. . Check fasting lab in AM--CMP, Lipids, HbA1C . Doxycycline and Prednisone Increase SVN to QID Add back Symbicort 160/4.5 2 p BID . Finish Z-pack Add Nasonex Add Meclizine Vestibular exercises Continue current meds and accuchecks Check lab and fwup in 4mos . cefdinir. Will focus on rest and flui ds. Pt. reports he is using breathing treatments as needed. Pt. will monitor for worsening symptoms or fever. . Continue current meds Restart Advair Restart exercise Flu shot given . DC actos ALEKSANDER Carmen Continue Metformin but change to BID Add Lantus 25u sc q PM BS readings in 1wk . HbA1C in 3mos. Continue Accuchecks B ID alternating times. Switch lexapro to celexa . Pt. will continue the Avalox and Doxyc ycline regimen as prescribed the previous day. He has been advised to continue inhalers, breathing treatments and oxygen therapy for at least the weekend. Moderate activity without strenuous exercise. The pt. will seek immediate re-eval if his symptoms worsen. . Pt. is given 1 Gram Rocephin IM, 125 m g Solu-Medrol IM, 7 day sample of Avelox, continue Doxycycline 100 mg BID. Labs drawn are: CBC, CRP. Discussed with pt (Dr. Barakat present/evaluation) that hospitilization may be necessary. Pt. strongly wishes to not be hospitalized. Pt. is instructed to go home and continue oxygen therapy at 2L per nasal cannula. Pt. is to seek immediate re-eval if symptoms continue to worsen or if they change. Pt. is scheduled for further eval tomorrow morning. Medical Equipment No Medical Equipment data Health Concerns Section Health Concerns data not found Goals Section Goals data not found Interventions Section Interventions data not found Health Status Evaluations/Outcomes Section Health Status Evaluations/Outcomes data not found Advance Directives No Advance Directive data
--- OUTSIDE RECORDS SUMMARY | 2019-12-31 00:15 | XMS REPORT | CCD ---
Author Author Leandro Barakat D.O. Organization LITA BARAKAT DO 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 Role Phone Lita Barakat D.O., PP Unavailable CCM Unavailable Summary Purpose Interface Exchange Insurance Providers Payer name Policy type / Coverage type Covered green party ID Effective Begin Date Effective End Date [employer] MEDICARE Medicare Part B [id number] 2019 Unknown Family history Brother Diagnosis Age At Onset Cancer Unknown Father Diagnosis Age At Onset Heart disease Unknown Mother Diagnosis Age At Onset Heart disease Unknown Social History Social History Element Codes Description Effective Dates Tobacco history SNOMED CT: 1823636 Former smoker quit 15 years ago 08/07/2011 [...] 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/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: [...] Fill Instructions prednisone 20 mg tablet RxNorm: 587857 1 Tablet(s) Oral two remy es a day 12/25/2019 01/01/2020 Active Levemir FlexTouch U-100 Insulin 100 unit/mL (3 mL) sub cutaneous pen RxNorm: 034447 10 Unit(s) Subcutaneous every night at bedtime 12/22/2019 N o Stop Date Active baclofen 10 mg tablet RxNorm: 864281 1 Tablet(s) Oral QPM for p ain/spasm 12/22/2019 01/21/2020 Active ipratropium 0.5 mg-albuterol 3 mg (2.5 mg base)/3 mL n ebulization soln RxNorm: 5671146 USE 1 VIAL IN NEBULIZER Q4H (THIS REPLACES ALBUTEROL S OLUTION) 11/27/2019 12/16/2019 Inactive hydrocodone 10 mg-acetaminophen 325 mg tablet RxNorm: 600965 1 Tablet(s) Oral Q4H as needed for pain 11/13/2019 No Stop Date Active Seroquel 50 mg tablet RxNorm: 373557 1 Tablet(s) Oral QPM as ne eded for sleep 10/07/2019 12/21/2019 Inactive ropinirole 4 mg tablet RxNorm: 258670 3 TABLET(S) BY [facility] DAILY AT BEDTIME FOR RESTLESS LEGS 09/29/2019 12/27/2019 Active Generic For:REQU IP 4 MG TABLET 09/29/2019 7:52:42 AM N O T I C E Last quantity doesn't match original quantity ropinirole 4 mg tablet RxNorm: 633315 3 TABLET(S) BY [facility] DAILY AT BEDTIME FOR RESTLESS LEGS 09/26/2019 09/28/2019 Inactive Generic For:REQU IP 4 MG TABLET 09/26/2019 9:08:48 AM N O T I C E Last quantity doesn't match original quantity ipratropium 0.5 mg-albuterol 3 mg (2.5 mg base)/3 mL n ebulization soln RxNorm: 0631162 USE 1 VIAL IN NEBULIZER EVERY FOUR HOURS (THIS REPLACES ALBUTEROL SOLUTION) 09/26/2019 10/15/2019 Inactive Generic For:*DUO NEB 2.5-0.5 MG/3 ML SOLN 09/26/2019 9:08:53 AM hydrocodone 10 mg-acetaminophen 325 mg tablet RxNorm: 831005 1 Tablet(s) Oral Q4H as needed for pain 09/09/2019 09/09/2019 Inactive hydrocodone 10 mg-acetaminophen 325 mg tablet RxNorm: 292213 1 Tablet(s) Oral Q4H as needed for pain 09/09/2019 09/08/2019 Inactive ondansetron HCl 4 mg tablet RxNorm: 351870 1 Tablet(s) Oral QPM for nausea 08/12/2019 10/10/2019 Inactive ipratropium 0.5 mg-albuterol 3 mg (2.5 mg base)/3 mL n ebulization soln RxNorm: 6283964 1 Unit Dose INH Q4H 08/12/2019 09/25/2019 Inactive replaces albuterol solution Augmentin 875 mg-125 mg tablet RxNorm: 560434 1 Tablet(s) Oral two times a day 08/07/2019 08/17/2019 Inactive prednisone 20 mg tablet RxNorm: 669649 1 Tablet(s) Oral QD 08/05/2008/04/2019 Inactive prednisone 20 mg tablet RxNorm: 000140 1 Tablet(s) Oral QD 08/05/2008/06/2019 Inactive Levaquin 500 mg tablet RxNorm: 807554 1 Tablet(s) Oral QD Replaces azithromycin (z-pack) 07/31/2019 08/05/2019 Inactive Levaquin 500 mg tablet RxNorm: 206923 1 Tablet(s) Oral QD Replaces azithromycin (z-pack) 07/21/2019 07/26/2019 Inactive Levaquin 500 mg tablet RxNorm: 928136 1 Tablet(s) Oral QD Replaces azithromycin (z-pack) 07/21/2019 07/20/2019 Inactive Zithromax Z-Gui 250 mg tablet RxNorm: 936334 Tablet(s) Oral 019 07/22/2019 Inactive Zithromax Z-Gui 250 mg tablet RxNorm: 882617 Tablet(s) Oral 019 07/15/2019 Inactive Symbicort 160 mcg-4.5 mcg/actuation HFA aerosol inhaler RxNo rm: 3701652 2 Puff(s) Inhalation two times a day 07/14/2019 07/14/2019 Inactive Tessalon Perles 100 mg capsule RxNorm: 796037 1 Capsule(s) Oral Q8H as needed 07/14/2019 08/06/2019 Inactive Seroquel 50 mg tablet RxNorm: 085481 1 Tablet(s) Oral QPM as ne eded for sleep 07/01/2019 10/06/2019 Inactive ondansetron HCl 4 mg tablet RxNorm: 879699 1 Tablet(s) Oral QPM for nausea 06/24/2019 07/24/2019 Inactive Seroquel 25 mg tablet RxNorm: 682337 1 Tablet(s) Oral every nig ht at bedtime 06/19/2019 06/18/2019 Inactive Seroquel 25 mg tablet RxNorm: 946337 1 Tablet(s) Oral every nig ht at bedtime 06/19/2019 06/30/2019 Inactive trazodone 150 mg tablet RxNorm: 071543 1/2 Tablet(s) PO QHS as needed for sleep 06/11/2019 06/17/2019 Inactive replaces PA on doxep in trazodone 150 mg tablet RxNorm: 755867 1/2 Tablet(s) PO QHS as needed for sleep 05/12/2019 06/11/2019 Inactive replaces PA on doxep in Vitamin D3 5,000 unit tablet RxNorm: 873820 1 Tablet(s) PO QD 05/09 No Stop Date Active magnesium oxide 400 mg (241.3 mg magnesium) tablet RxNorm: 1 89050 1 Tablet(s) PO QHS 05/09/2019 No Stop Date Active cyanocobalamin (vit B-12) 1,000 mcg/mL injection solution Rx Norm: 646295 1 injection weekly for 4 weeks 1 Milliliter(s) Inj 05/09/2019 12/21/2019 Inactive ferrous sulfate 325 mg (65 mg iron) tablet RxNorm: 057823 1 Tab let(s) PO QD 05/09/2019 12/21/2019 Inactive ropinirole 4 mg tablet RxNorm: 430999 3 TABLET(S) BY [facility] DAILY AT BEDTIME FOR RESTLESS LEGS 03/26/2019 06/23/2019 Inactive Generic For:REQU IP 4 MG TABLET 03/26/2019 11:23:36 AM N O T I C E Last quantity doesn't match original quantity pantoprazole 40 mg tablet,delayed release RxNorm: 385485 Tablet(s) TAKE 1 TABLET BY MOUTH DAILY FOR STOMACH 03/24/2019 06/21/2019 Inactive Gener ic For:PROTONIX 40MG TAB EC 01/03/2019 1:23:44 PM hydroxyzine HCl 10 mg tablet RxNorm: 043175 1 Tablet(s) PO BID as needed 03/24/2019 04/06/2019 Inactive ipratropium-albuterol 0.5 mg-3 mg(2.5 mg base)/3 mL ne bulization soln RxNorm: 5930071 1 Unit Dose INH Q4H 03/21/2019 No Stop Date Active replaces albuterol solution meclizine 12.5 mg tablet RxNorm: 996959 1 Tablet(s) PO BID as neede d 03/21/2019 12/21/2019 Inactive losartan 100 mg tablet RxNorm: 513523 1 Tablet(s) PO QD replace s lisinopril 03/13/2019 09/08/2019 Inactive fluconazole 100 mg tablet RxNorm: 663586 1 Tablet(s) PO QD 03/13/2003/19/2019 Inactive nystatin 100,000 unit/mL oral suspension RxNorm: 449832 5 Unit( s) PO QID 03/13/2019 03/26/2019 Inactive tramadol 50 mg tablet RxNorm: 723371 1 Tablet(s) PO TID as needed for pain TAKE 2 TABS OF EXTRA STRENGTH TYLENOL WITH EACH DOSE 03/10/2019 04/06/2019 Inactive Generic For:*ULTRAM 50 MG TABLET 01/15/2019 4:55:26 PM Sinemet CR 50 mg-200 mg tablet,extended release RxNorm: 8343 41 1 Tablet(s) PO TID 02/26/2019 08/24/2019 Inactive Generic For:*SIN EMET CR 50/200 TABLET SA 07/08/2018 3:09:11 PM trazodone 150 mg tablet RxNorm: 010580 1/2 Tablet(s) PO QHS as needed for sleep 02/13/2019 02/12/2019 Inactive trazodone 150 mg tablet RxNorm: 716431 1/2 Tablet(s) PO QHS as needed for sleep 02/13/2019 02/25/2019 Inactive replaces PA on doxep in doxepin 10 mg capsule RxNorm: 9616526 1-2 Capsule(s) PO QHS prn sleep 02/13/2019 02/13/2019 Inactive Novolog U-100 Insulin aspart 100 unit/mL subcutaneous soluti on RxNorm: 290988 INJECT 10 UNIT(S) SUBCUTANEOUSLY BEFORE MEALS 01/31/2019 05/30/2019 In active 01/31/2019 1:39:10 PM ipratropium-albuterol 0.5 mg-3 mg(2.5 mg base)/3 mL ne bulization soln RxNorm: 4171670 1 Unit Dose INH Q4H 01/17/2019 03/20/2019 Inactive replaces albuterol solution tramadol 50 mg tablet RxNorm: 917825 1 Tablet(s) PO TID as needed for pain TAKE 2 TABS OF EXTRA STRENGTH TYLENOL WITH EACH DOSE 01/15/2019 02/03/2019 Inactive Generic For:*ULTRAM 50 MG TABLET 01/15/2019 4:55:26 PM Sinemet CR 50 mg-200 mg tablet,extended release RxNorm: 8343 41 1 Tablet(s) PO BID 01/03/2019 02/25/2019 Inactive Generic For:*SIN EMET CR 50/200 TABLET SA 07/08/2018 3:09:11 PM losartan 100 mg tablet RxNorm: 029361 1 Tablet(s) PO QD replace s lisinopril 01/03/2019 03/12/2019 Inactive Symbicort 160 mcg-4.5 mcg/actuation HFA aerosol inhaler RxNo rm: 2155485 2 Puff(s) INH BID 01/03/2019 01/02/2019 Inactive pantoprazole 40 mg tablet,delayed release RxNorm: 762831 TAKE 1 TABLET BY MOUTH DAILY FOR STOMACH 01/03/2019 03/23/2019 Inactive Generic For:MD OTONIX 40MG TAB EC 01/03/2019 1:23:44 PM nystatin 100,000 unit/mL oral suspension RxNorm: 065596 Unit(s) 5 Unit(s) PO QID swish and spit 01/02/2019 11/11/2019 Inactive Incruse Ellipta 62.5 mcg/actuation powder for inhalation RxN orm: 8544069 1 Capsule(s) INH QD 12/25/2018 12/21/2019 Inactive Tessalon Perles 100 mg capsule RxNorm: 545842 1 Capsule(s) PO T ID for cough 12/25/2018 02/25/2019 Inactive Medrol (Gui) 4 mg tablets in a dose pack RxNorm: 082007 Tablet(s) PO Use as directed 12/23/2018 01/02/2019 Inactive Levemir FlexTouch U-100 Insulin 100 unit/mL (3 mL) sub cutaneous pen RxNorm: 564421 20 Unit(s) SQ QD with pen needles 12/13/2018 05/11/2019 Inactiv e prednisone 20 mg tablet RxNorm: 234774 1 Tablet(s) PO QD 12/12/2018 0 12/11/2018 Inactive prednisone 20 mg tablet RxNorm: 816813 1 Tablet(s) PO QD 12/12/2018 0 12/16/2018 Inactive promethazine 6.25 mg-codeine 10 mg/5 mL syrup RxNorm: 888472 5 Milliliter(s) PO QHS as needed for cough 12/09/2018 12/18/2018 Inactive cefdinir 300 mg capsule RxNorm: 044838 1 Capsule(s) PO BID 12/10/1912/18/2018 Inactive fluconazole 100 mg tablet RxNorm: 738389 1 Tablet(s) PO QD 12/06/1912/08/2018 Inactive ropinirole 4 mg tablet RxNorm: 994604 3 Tablet(s) PO QHS for re stless legs 12/04/2018 03/03/2019 Inactive Novolog U-100 Insulin aspart 100 unit/mL subcutaneous soluti on RxNorm: 882001 INJECT 10 UNIT(S) SUBCUTANEOUSLY BEFORE MEALS 12/04/2018 01/30/2019 In active 12/04/2018 10:02:42 AM nystatin 100,000 unit/mL oral suspension RxNorm: 012112 5 Unit(s) PO QID swish and spit 11/25/2018 12/18/2018 Inactive ropinirole 4 mg tablet RxNorm: 782957 3 Tablet(s) PO QHS for re stless legs 11/04/2018 12/03/2018 Inactive prednisone 20 mg tablet RxNorm: 226525 1 Tablet(s) PO BID 10/23/2018 10/29/2018 Inactive ropinirole 4 mg tablet RxNorm: 951348 3 Tablet(s) PO QHS for re stless legs 10/14/2018 11/04/2018 Inactive pantoprazole 40 mg tablet,delayed release RxNorm: 040234 1 Tablet(s) PO QD forstomach 10/10/2018 01/02/2019 Inactive Symbicort 160 mcg-4.5 mcg/actuation HFA aerosol inhaler RxNo rm: 6870478 2 Puff(s) INH BID 10/10/2018 01/03/2019 Inactive Novolog U-100 Insulin aspart 100 unit/mL subcutaneous soluti on RxNorm: 037340 INJECT 10 UNIT(S) SUBCUTANEOUSLY BEFORE MEALS 10/10/2018 12/03/2018 In active 10/10/2018 11:30:01 AM Sinemet CR 50 mg-200 mg tablet,extended release RxNorm: 8343 41 1 Tablet(s) PO BID 09/26/2018 01/03/2019 Inactive Generic For:*SIN EMET CR 50/200 TABLET SA 07/08/2018 3:09:11 PM ropinirole 4 mg tablet RxNorm: 825077 2 Tablet(s) PO QHS for re stless legs 09/18/2018 10/13/2018 Inactive metformin ER 1,000 mg tablet,extended release 24hr RxNorm: 1 080699 1 Tablet(s) PO BID 09/09/2018 12/18/2018 Inactive ropinirole 4 mg tablet RxNorm: 346381 2 Tablet(s) PO QHS for re stless legs 08/21/2018 09/17/2018 Inactive doxycycline hyclate 100 mg capsule RxNorm: 5915378 1 Capsule(s) PO BID 08/07/2018 08/13/2018 Inactive ropinirole 4 mg tablet RxNorm: 712765 1 Tablet(s) PO QHS replac es 1mg dose 08/07/2018 08/20/2018 Inactive ropinirole 2 mg tablet RxNorm: 577184 TAKE 3 TABLETS BY MOUTH DAILY AT BEDTIME DO NOT EXCEED 3 TABLETS PER DAY!!!! 07/31/2018 08/06/2018 Inactive Generic For:REQUIP 2 MG TABLET 07/30/2018 3:50:28 PM Symbicort 160 mcg-4.5 mcg/actuation HFA aerosol inhaler RxNo rm: 6107419 2 Puff(s) INH BID 07/12/2018 10/09/2018 Inactive Sinemet CR 50 mg-200 mg tablet,extended release RxNorm: 8343 41 TAKE 1 TABLET BY MOUTH TWICE DAILY 07/08/2018 09/26/2018 Inactive Generic For:*S INEMET CR 50/200 TABLET SA 07/08/2018 3:09:11 PM losartan 100 mg tablet RxNorm: 574946 1 Tablet(s) PO QD replace s lisinopril 06/17/2018 12/13/2018 Inactive Novolog U-100 Insulin aspart 100 unit/mL subcutaneous soluti on RxNorm: 762074 10 Unit(s) SQ AC 06/17/2018 10/09/2018 Inactive albuterol sulfate 2.5 mg/3 mL (0.083 %) solution for n ebulization RxNorm: 597728 Milliliter(s) INH USE 1 VIAL IN NEBULIZE R EVERY FOUR HOURS NEEDED FOR WHEEZING OR SHORTNESS OF BREATH 06/13/2018 01/16/2019 Inactive Generic For:*PROVENTIL 0.83 MG/ML SOLUTN 06/13/2013 2:04:46 PM ropinirole 2 mg tablet RxNorm: 207680 3 Tablet(s) PO QH S DO NOT EXCEED 6MG (3 TABLETS) PER DAY!!!! 06/13/2018 07/31/2018 Inactive atorvastatin 40 mg tablet RxNorm: 919645 Tablet(s) TAKE 1 TABLET BY MOUTH EVERY DAY 05/13/2018 12/18/2018 Inactive Generic For:LIPI TOR 40MG TAB 05/01/2018 8:37:31 AM Sinemet CR 50 mg-200 mg tablet,extended release RxNorm: 8343 41 1 Tablet(s) PO BID 05/08/2018 07/06/2018 Inactive Lidocaine Viscous 2 % mucosal solution RxNorm: 5467393 5 Milliliter(s) PO QID as needed 05/02/2018 08/06/2018 Inactive Diflucan 100 mg tablet RxNorm: 344770 1 Tablet(s) PO QD 05/02/2018 Inactive atorvastatin 40 mg tablet RxNorm: 185418 TAKE 1 TABLET BY MOUTH EVERY DAY 05/01/2018 05/13/2018 Inactive Generic For:LIPITOR 40MG TAB 05/01/2018 8:37:31 AM nystatin 100,000 unit/mL oral suspension RxNorm: 242166 5 Unit(s) PO QID (before meals and at bedtime) 04/24/2018 04/30/2018 Inactive Ventolin HFA 90 mcg/actuation aerosol inhaler RxNorm: 774467 2 Puff(s) INH Q4H as needed one inhaler for home and one inhaler for car 04/23/201812/18 Inactive Mucinex 600 mg tablet, extended release RxNorm: 063044 1 Tablet(s) PO BID for congestion 04/22/2018 05/21/2018 Inactive prednisone 10 mg tablet RxNorm: 229087 Tablet(s) PO as directeds 08/06/2018 Inactive ropinirole 2 mg tablet RxNorm: 840469 3 Tablet(s) PO QH S DO NOT EXCEED 6MG (3 TABLETS) PER DAY!!!! 04/09/2018 05/08/2018 Inactive gabapentin 300 mg capsule RxNorm: 188849 1-2 Capsule(s) PO QHS 02/201804/08/2018 Inactive ropinirole 2 mg tablet RxNorm: 747154 1 Tablet(s) PO QHS 03/28/2018 0 04/08/2018 Inactive gabapentin 300 mg capsule RxNorm: 318140 1-2 Capsule(s) PO QHS 02/2303/29/2018 Inactive gabapentin 300 mg capsule RxNorm: 517673 1-2 Capsule(s) PO QHS 02/2203/13/2018 Inactive gabapentin 300 mg capsule RxNorm: 355716 2 Capsule(s) PO QHS 201703/11/2018 Inactive ropinirole 2 mg tablet RxNorm: 200959 1 Tablet(s) PO QHS 02/28/2018 0 03/28/2018 Inactive ropinirole 2 mg tablet RxNorm: 411103 1 Tablet(s) PO QHS 02/28/2018 0 02/27/2018 Inactive gabapentin 300 mg capsule RxNorm: 065048 1 Capsule(s) PO QHS 201702/27/2018 Inactive pantoprazole 40 mg tablet,delayed release RxNorm: 080264 1 Tablet(s) PO QD [facility] 01/23/2018 05/22/2018 Inactive Voltaren 1 % topical gel RxNorm: 836875 1 Gram(s) TOP QID to ri ght knee 01/23/2018 02/04/2018 Inactive metformin ER 500 mg tablet,extended release 24hr RxNorm: 860 975 2 Tablet(s) PO BID 01/09/2018 12/08/2018 Inactive Requip 1 mg tablet RxNorm: 179081 1 Tablet(s) PO QHS 01/09/201802/27 Inactive prednisone 20 mg tablet RxNorm: 330253 1 Tablet(s) PO T ID for 3 days then 1 po BID for 3 days then one daily for 3 days 01/02/2018 02/03/2018 Inactiv e Levaquin 500 mg tablet RxNorm: 722339 1 Tablet(s) PO QD 01/02/2018 Inactive ProAir HFA 90 mcg/actuation aerosol inhaler RxNorm: 040648 2 Puff(s) INH Q4H as needed 12/28/2017 No Stop Date Active please switch to ventolin if insurance doesn't cover montelukast 10 mg tablet RxNorm: 816917 1 Tablet(s) PO QD 12/28/2017 02/03/2018 Inactive Levaquin 500 mg tablet RxNorm: 291744 1 Tablet(s) PO QD 12/21/2017 Inactive ProAir HFA 90 mcg/actuation aerosol inhaler RxNorm: 081238 2 Puff(s) INH Q4H as needed 12/21/2017 12/27/2017 Inactive please switch to ventolin if insurance doesn't cover doxycycline hyclate 100 mg tablet RxNorm: 443174 1 Tablet(s) PO BID 12/17/2017 12/26/2017 Inactive Levemir FlexTouch U-100 Insulin 100 unit/mL (3 mL) sub cutaneous pen RxNorm: 141066 20 Unit(s) SQ QD with pen needles---Due for labs 12/11/2017 02/03/2018 Inactive Requip 1 mg tablet RxNorm: 811876 1 Tablet(s) PO QHS 12/10/201712/09 Inactive Requip 1 mg tablet RxNorm: 031635 1 Tablet(s) PO QHS 12/10/201701/09 Inactive albuterol sulfate 2.5 mg/3 mL (0.083 %) solution for n ebulization RxNorm: 997854 Milliliter(s) INH USE 1 VIAL IN NEBULIZE R EVERY FOUR HOURS NEEDED FOR WHEEZING OR SHORTNESS OF BREATH 12/05/2017 06/13/2018 Inactive Generic For:*PROVENTIL 0.83 MG/ML SOLUTN 06/13/2013 2:04:46 PM Tudorza Pressair 400 mcg/actuation breath activated RxNorm: 9779142 1 Puff(s) INH BID 12/03/2017 12/10/2017 Inactive Levemir FlexTouch U-100 Insulin 100 unit/mL (3 mL) sub cutaneous pen RxNorm: 675626 10 Unit(s) SQ QD with pen needles---Due for labs 11/16/2017 12/10/2017 Inactive Zofran ODT 4 mg disintegrating tablet RxNorm: 940586 1 Tablet(s) PO Q4H as needed for nausea 10/17/2017 02/04/2018 Inactive Efudex 5 % topical cream RxNorm: 027073 Application TOP QD prn to precancer skin lesions 10/17/2017 02/03/2018 Inactive Sinemet CR 50 mg-200 mg tablet,extended release RxNorm: 8343 41 1 Tablet(s) PO BID 10/17/2017 02/05/2018 Inactive Sinemet CR 50 mg-200 mg tablet,extended release RxNorm: 8343 41 1 Tablet(s) PO QHS 09/25/2017 10/16/2017 Inactive gabapentin 600 mg tablet RxNorm: 755309 1 Tablet(s) PO BID 08/15/20 17 08/14/2017 Inactive gabapentin 600 mg tablet RxNorm: 911570 1 Tablet(s) PO BID 08/15/20 17 12/10/2017 Inactive Novolog U-100 Insulin aspart 100 unit/mL subcutaneous soluti on RxNorm: 732040 10 Unit(s) SQ AC 08/15/2017 02/03/2018 Inactive Novolog 100 unit/mL subcutaneous solution RxNorm: 347001 10 Uni t(s) SQ AC 08/13/2017 08/14/2017 Inactive prednisone 20 mg tablet RxNorm: 477563 2 Tablet(s) PO QD 08/02/201710/04/2016 Inactive gabapentin 600 mg tablet RxNorm: 052454 Tablet(s) 1 Tab let(s) PO QHS replaces 300mg dose 07/09/2017 08/14/2017 Inactive Breo Ellipta 100 mcg-25 mcg/dose powder for inhalation RxNor m: 3086245 1 Unit Dose INH QD 07/02/2017 08/30/2017 Inactive Tudorza Pressair 400 mcg/actuation breath activated RxNorm: 5336450 1 Puff(s) INH BID 06/18/2017 12/02/2017 Inactive gabapentin 600 mg tablet RxNorm: 134034 1 Tablet(s) PO QHS repl aces 300mg dose 06/14/2017 07/08/2017 Inactive metformin ER 1,000 mg tablet,extended release 24hr RxNorm: 1 816748 1 Tablet(s) PO BID 05/29/2017 01/08/2018 Inactive cyclobenzaprine 5 mg tablet RxNorm: 862745 1 Tablet(s) PO TID 05/2906/07/2017 Inactive metformin ER 1,000 mg tablet,extended release 24hr RxNorm: 8 47887 1 Tablet(s) PO BID 05/25/2017 05/28/2017 Inactive metformin ER 1,000 mg tablet,extended release 24hr RxNorm: 8 58836 1 Tablet(s) PO BID 05/22/2017 05/24/2017 Inactive Amaryl 2 mg tablet RxNorm: 792503 1 Tablet(s) PO BID 05/01/201702/03 Inactive glimepiride 2 mg tablet RxNorm: 096503 1 Tablet(s) PO BID 04/19/2017 02/03/2018 Inactive ferrous sulfate 325 mg (65 mg iron) tablet RxNorm: 898088 1 Tab let(s) PO QHS 04/17/2017 02/03/2018 Inactive Requip 4 mg tablet RxNorm: 550228 1 Tablet(s) PO BID 04/12/201704/11 Inactive Requip 4 mg tablet RxNorm: 672594 1 Tablet(s) PO BID 04/12/201704/15 Inactive Levemir FlexTouch 100 unit/mL (3 mL) subcutaneous insulin pe n RxNorm: 260939 10 Unit(s) SQ QD with pen needles---Due for labs 04/05/2017 11/15/2017 In active Silenor 3 mg tablet RxNorm: 103517 1 Tablet(s) PO QHS 04/05/201709/25 Inactive ropinirole 4 mg tablet RxNorm: 986221 1 Tablet(s) PO QHS 03/29/2017 0 04/01/2017 Inactive ropinirole 4 mg tablet RxNorm: 299740 1 Tablet(s) PO QHS 03/29/2017 0 03/28/2017 Inactive Requip 4 mg tablet RxNorm: 958307 1 Tablet(s) PO QHS 03/28/201704/01 Inactive gabapentin 600 mg tablet RxNorm: 709999 1 Tablet(s) PO QHS repl aces 300mg dose 03/28/2017 04/15/2017 Inactive Requip 4 mg tablet RxNorm: 567878 1 Tablet(s) PO QHS 03/23/201703/27 Inactive gabapentin 600 mg tablet RxNorm: 720816 1 Tablet(s) PO QHS 03/13/20 17 03/12/2017 Inactive gabapentin 600 mg tablet RxNorm: 557431 1 Tablet(s) PO QHS 03/13/20 17 03/27/2017 Inactive gabapentin 300 mg capsule RxNorm: 268425 1 Capsule(s) PO QPM 201603/12/2017 Inactive Generic For:NEURONTIN 300 MG CAPSULE 01/22/2017 10:10:39 AM losartan 100 mg tablet RxNorm: 257853 1 Tablet(s) PO QD replace s lisinopril 02/21/2017 06/17/2018 Inactive gabapentin 300 mg capsule RxNorm: 819195 TAKE 1 CAPSULE BY MOUT H EVERY EVENING 01/22/2017 02/21/2017 Inactive Generic For:NEURONTI N 300 MG CAPSULE 01/22/2017 10:10:39 AM gabapentin 300 mg capsule RxNorm: 875967 1 Capsule(s) PO QPM 201601/21/2017 Inactive Requip 4 mg tablet RxNorm: 388960 1 Tablet(s) PO QHS 12/21/201603/20 Inactive Effient 10 mg tablet RxNorm: 790710 1 Tablet(s) PO QD 12/12/201612/23 Inactive gabapentin 300 mg capsule RxNorm: 261714 1 Capsule(s) PO QPM 201612/03/2016 Inactive gabapentin 300 mg capsule RxNorm: 729645 1 Capsule(s) PO QPM 201612/13/2016 Inactive Requip 4 mg tablet RxNorm: 237667 1 Tablet(s) PO QHS 11/28/201612/21 Inactive atorvastatin 40 mg tablet RxNorm: 038342 Tablet(s) 1 Tablet(s) PO Q D 11/22/2016 08/18/2017 Inactive atorvastatin 40 mg tablet RxNorm: 054187 1 Tablet(s) PO QD 11/23/19 17 11/21/2016 Inactive ropinirole 1 mg tablet RxNorm: 108426 2.5 Tablet(s) PO QPM for legs/sleep 11/14/2016 11/27/2016 Inactive nystatin 100,000 unit/mL oral suspension RxNorm: 926481 5 Unit(s) PO QID swish and spit 10/31/2016 02/03/2018 Inactive fluconazole 100 mg tablet RxNorm: 758021 1 Tablet(s) PO QD 10/31/19 17 11/09/2016 Inactive doxycycline hyclate 100 mg capsule RxNorm: 7646113 1 Capsule(s) PO BID 10/03/2016 10/12/2016 Inactive Levemir FlexTouch 100 unit/mL (3 mL) subcutaneous insulin pe n RxNorm: 551573 10 Unit(s) SQ QD with pen needles 09/18/2016 04/04/2017 Inactive amitriptyline 25 mg tablet RxNorm: 531279 1 Tablet(s) P O QHS as needed for sleep 09/04/2016 10/17/2016 Inactive ropinirole 1 mg tablet RxNorm: 910715 1.5 Tablet(s) PO QPM for legs/sleep 09/04/2016 11/13/2016 Inactive amitriptyline 25 mg tablet RxNorm: 491455 1 Tablet(s) P O QHS as needed for sleep 08/22/2016 09/03/2016 Inactive clopidogrel 75 mg tablet RxNorm: 962723 1 Tablet(s) PO QD 08/10/2016 10/17/2016 Inactive Zoloft 100 mg tablet RxNorm: 242943 2 Tablet(s) PO QHS 08/10/2016 Inactive atorvastatin 40 mg tablet RxNorm: 903193 1 Tablet(s) PO QD 08/10/2010/17/2016 Inactive ropinirole 1 mg tablet RxNorm: 092407 1 Tablet(s) PO QPM for le gs/sleep 08/10/2016 09/03/2016 Inactive losartan 100 mg tablet RxNorm: 829901 1 Tablet(s) PO QD replace s lisinopril 07/20/2016 02/21/2017 Inactive Zofran 4 mg tablet RxNorm: 024835 1 Tablet(s) PO Q4H as needed for nausea 07/06/2016 10/17/2016 Inactive Flagyl 500 mg tablet RxNorm: 435091 1 Tablet(s) PO TID 07/06/2016 Inactive Plavix 75 mg tablet RxNorm: 185715 1 Tablet(s) PO QD 06/08/201607/05 Inactive isosorbide mononitrate ER 30 mg tablet,extended release 24 h r RxNorm: 059741 1 Tablet(s) PO QAM 06/08/2016 08/09/2016 Inactive atorvastatin 40 mg tablet RxNorm: 455464 1 Tablet(s) PO QD 06/08/20 16 08/09/2016 Inactive hydrochlorothiazide 12.5 mg tablet RxNorm: 101767 1 Tablet(s) PO QA M 06/08/2016 07/05/2016 Inactive metformin ER 1,000 mg tablet,extended release 24hr RxNorm: 8 58684 1 Tablet(s) PO BID 06/08/2016 09/05/2016 Inactive metoprolol tartrate 25 mg tablet RxNorm: 709946 1/2 Tablet(s) PO BI D 06/08/2016 08/09/2016 Inactive Zoloft 100 mg tablet RxNorm: 338635 2 Tablet(s) PO QHS 04/03/2016 Inactive metformin ER 1,000 mg tablet,extended release 24hr RxNorm: 8 58552 Tablet(s) 1 Tablet(s) PO QD 03/30/2016 12/18/2018 Inactive Levemir FlexTouch 100 unit/mL (3 mL) subcutaneous insulin pe n RxNorm: 617072 10 Unit(s) SQ QD 03/09/2016 03/08/2016 Inactive Levemir FlexTouch 100 unit/mL (3 mL) subcutaneous insulin pe n RxNorm: 081131 10 Unit(s) SQ QD with pen needles 03/09/2016 03/20/2016 Inactive Mobic 15 mg tablet RxNorm: 778061 1 Tablet(s) PO QD for foot pain 0 02/17/2016 03/17/2016 Inactive Zoloft 100 mg tablet RxNorm: 135369 1 1/2 Tablet(s) PO QHS 01/31/20 16 04/02/2016 Inactive omeprazole 20 mg capsule,delayed release RxNorm: 009686 TAKE 2 CAPSULES BY MOUTH EVERY DAY 01/12/2016 08/09/2016 Inactive Generic For:*CHERYL LOSEC [address] 01/12/2016 8:58:34 AM Zoloft 100 mg tablet RxNorm: 701993 1/2 Tablet(s) PO QH S for 1 week then 1 tablet po q HS 12/30/2015 01/27/2016 Inactive Ventolin HFA 90 mcg/actuation aerosol inhaler RxNorm: 113702 2 Puff(s) INH QID as needed for shortness of breath 12/30/2015 02/03/2018 Inactive [AttnRPh: Saving apply/adjudicate RxGRP:SG20 RxBIN:[id number] RxPCN: ID#:[id number]] metformin ER 1,000 mg tablet,extended release 24hr RxNorm: 8 32905 1 Tablet(s) PO QD 12/20/2015 03/18/2016 Inactive clindamycin 300 mg capsule RxNorm: 366390 1 Capsule(s) PO TID 12/0512/15/2015 Inactive mupirocin 2 % topical cream RxNorm: 557238 TOP to facial lesion s twice daily 11/15/2015 12/15/2015 Inactive cefdinir 300 mg capsule RxNorm: 146447 1 Capsule(s) PO BID 11/15/19 16 11/24/2015 Inactive Medrol (Gui) 4 mg tablets in a dose pack RxNorm: 425545 Tablet(s) PO as directed 10/11/2015 12/15/2015 Inactive albuterol sulfate 2.5 mg/3 mL (0.083 %) solution for n ebulization RxNorm: 521483 INH USE 1 VIAL IN NEBULIZER EVERY FOUR H OURS NEEDED FOR WHEEZING OR SHORTNESS OF BREATH 10/05/2015 10/04/2015 Inactive Generic For:*PRO VENTIL 0.83 MG/ML SOLUTN 06/13/2013 2:04:46 PM doxycycline hyclate 100 mg capsule RxNorm: 0103634 1 Capsule(s) PO BID 10/05/2015 10/14/2015 Inactive albuterol sulfate 2.5 mg/3 mL (0.083 %) solution for n ebulization RxNorm: 569856 Milliliter(s) INH USE 1 VIAL IN NEBULIZE R EVERY FOUR HOURS NEEDED FOR WHEEZING OR SHORTNESS OF BREATH Dx: J44.9 10/05/2015 12/05/2017 Inacti ve Generic For:*PROVENTIL 0.83 MG/ML SOLUTN 06/13/2013 2:04:46 PM albuterol sulfate 2.5 mg/3 mL (0.083 %) solution for n ebulization RxNorm: 909835 3 Milliliter(s) INH USE 1 VIAL IN NEBULI ZER EVERY FOUR HOURS NEEDED FOR WHEEZING OR SHORTNESS OF BREATH 09/06/2015 10/04/2015 Inactive Generic For:*PROVENTIL 0.83 MG/ML SOLUTN 06/13/2013 2:04:46 PM Tradjenta 5 mg tablet RxNorm: 2996126 2 Tablet(s) PO QD 07/22/2015 Inactive albuterol sulfate 2.5 mg/3 mL (0.083 %) solution for n ebulization RxNorm: 589096 3 Milliliter(s) INH USE 1 VIAL IN NEBULI ZER EVERY FOUR HOURS NEEDED FOR WHEEZING OR SHORTNESS OF BREATH 06/29/2015 09/05/2015 Inactive Generic For:*PROVENTIL 0.83 MG/ML SOLUTN 06/13/2013 2:04:46 PM albuterol sulfate 2.5 mg/3 mL (0.083 %) solution for n ebulization RxNorm: 260978 Milliliter(s) INH USE 1 VIAL IN NEBULIZE R EVERY FOUR HOURS NEEDED FOR WHEEZING OR SHORTNESS OF BREATH 06/29/2015 12/04/2017 Inactive Generic For:*PROVENTIL 0.83 MG/ML SOLUTN 06/13/2013 2:04:46 PM doxycycline hyclate 100 mg tablet RxNorm: 581251 1 Tablet(s) PO BID 06/28/2015 07/07/2015 Inactive losartan 100 mg tablet RxNorm: 649306 1 Tablet(s) PO QD -replac es lisinopril 06/14/2015 09/05/2015 Inactive metformin ER 1,000 mg tablet,extended release 24hr RxNorm: 8 64836 1 Tablet(s) PO QD 06/14/2015 09/11/2015 Inactive losartan 100 mg tablet RxNorm: 550540 1 Tablet(s) PO QD -replac es lisinopril 06/14/2015 12/10/2015 Inactive Zocor 20 mg tablet RxNorm: 150599 Tablet(s) Tablet(s) 1 Tablet(s) PO QD -needs lipids labs 06/14/2015 06/14/2015 Inactive atorvastatin 40 mg tablet RxNorm: 651381 1 Tablet(s) PO QD repl aces simvastatin 06/14/2015 12/10/2015 Inactive loratadine 10 mg tablet RxNorm: 223348 Tablet(s) 1 Tablet(s) PO QD for drainage 06/14/2015 06/07/2016 Inactive Celexa 40 mg tablet RxNorm: 840097 1 Tablet(s) PO QD TA KE ONE (1) TABLET BY MOUTH DAILY 06/14/2015 12/29/2015 Inactive Generic For:HARJINDER XA 40 MG TABLET clindamycin 300 mg capsule RxNorm: 827463 2 Capsule(s) PO BID 06/0306/12/2015 Inactive metformin ER 1,000 mg tablet,extended release 24hr RxNorm: 8 92899 1 Tablet(s) PO QD 06/03/2015 06/02/2015 Inactive metformin ER 1,000 mg tablet,extended release 24hr RxNorm: 8 70140 1 Tablet(s) PO QD 06/03/2015 06/13/2015 Inactive mupirocin 2 % topical ointment RxNorm: 675453 TOP apply to open lesion of knee twice daily 06/03/2015 01/30/2016 Inactive Zocor 20 mg tablet RxNorm: 460453 Tablet(s) 1 Tablet(s ) PO QD -needs lipids labs 05/13/2015 06/13/2015 Inactive Celexa 40 mg tablet RxNorm: 869754 1 Tablet(s) PO QD TA KE ONE (1) TABLET BY MOUTH DAILY 05/13/2015 06/13/2015 Inactive Generic For:HARJINDER XA 40 MG TABLET Zocor 20 mg tablet RxNorm: 187804 Tablet(s) 1 Tablet(s ) PO QD -needs lipids labs 02/23/2015 03/24/2015 Inactive loratadine 10 mg tablet RxNorm: 654206 1 Tablet(s) PO QD for dr saenz 12/24/2014 06/13/2015 Inactive Zocor 20 mg tablet RxNorm: 239562 1 Tablet(s) PO QD -needs lipi ds labs 11/17/2014 02/23/2015 Inactive Celexa 40 mg tablet RxNorm: 019173 1 Tablet(s) PO QD 1 Tablet(s) PO QD 1 Tablet(s) PO QD Generic OKAY 11/11/2014 05/13/2015 Inactive Zocor 20 mg tablet RxNorm: 589721 1 Tablet(s) PO QD -needs lipi ds labs 11/11/2014 11/16/2014 Inactive omeprazole 20 mg capsule,delayed release RxNorm: 217017 2 Capsule(s) PO QD TAKE 2 CAPSULES BY MOUTH DAILY 10/27/2014 04/24/2015 Inactive Shena harp For:*PRILOSEC 20 MG CAPSULE trazodone 50 mg tablet RxNorm: 679392 1 1/2 Tablet(s) PO QHS 201412/29/2015 Inactive losartan 100 mg tablet RxNorm: 484012 1 Tablet(s) PO QD -replac es lisinopril 10/26/2014 04/23/2015 Inactive Levaquin 500 mg tablet RxNorm: 979286 1 Tablet(s) PO QD 10/08/2014 Inactive Levaquin 500 mg tablet RxNorm: 088105 1 Tablet(s) PO QD 10/08/2014 Inactive Diflucan 100 mg tablet RxNorm: 017375 1 Tablet(s) PO QD 10/06/2014 Inactive DuoNeb 0.5 mg-3 mg(2.5 mg base)/3 mL solution for nebulizati on RxNorm: 0561377 3 Milliliter(s) INH QID 09/23/2014 08/09/2016 Inactive Ventolin HFA 90 mcg/actuation aerosol inhaler RxNorm: 061578 2 Puff(s) INH QID as needed for shortness of breath 09/21/2014 12/29/2015 Inactive [AttnRPh: Saving apply/adjudicate RxGRP:SG20 RxBIN:[id number] RxPCN: ID#:[id number]] promethazine-codeine 6.25 mg-10 mg/5 mL syrup RxNorm: 209665 1 Teaspoon(s) PO QHS as needed for cough 09/08/2014 09/20/2014 Inactive prednisone 20 mg tablet RxNorm: 480743 1 Tablet(s) PO BID 09/02/2014 09/08/2014 Inactive promethazine-codeine 6.25 mg-10 mg/5 mL syrup RxNorm: 951336 1 Teaspoon(s) PO Q4H 09/02/2014 09/20/2014 Inactive doxycycline monohydrate 100 mg capsule RxNorm: 480964 1 Capsule (s) PO BID 09/02/2014 09/07/2014 Inactive Tessalon Perles 100 mg capsule RxNorm: 012646 1 Capsule (s) PO TID as needed for cough 08/31/2014 09/20/2014 Inactive Actos 15 mg tablet RxNorm: 309715 1 Tablet(s) PO QAM 1 Tablet(s ) PO QAM 08/26/2014 09/20/2014 Inactive loratadine 10 mg tablet RxNorm: 127117 1 Tablet(s) PO QD for dr saenz 08/26/2014 10/26/2014 Inactive Zithromax 500 mg tablet RxNorm: 165986 1 Tablet(s) PO QD 08/25/2014 1 11/01/2013 Inactive Zithromax 500 mg tablet RxNorm: 627951 1 Tablet(s) PO QD 08/25/2014 1 10/25/2013 Inactive Trazadone 75mg Tablet RxNorm: 1 Tablet(s) PO QHS 08/10/20142018 Inactive Zocor 20 mg tablet RxNorm: 913411 1 Tablet(s) PO QD 08/10/20142014 Inactive Trazadone 75mg Tablet RxNorm: 1 Tablet(s) PO QHS as need ed for sleep 08/10/2014 10/08/2014 Inactive Celexa 40 mg tablet RxNorm: 210796 1 Tablet(s) PO QD 1 Tablet(s) PO QD 1 Tablet(s) PO QD Generic OKAY 06/09/2014 10/06/2014 Inactive Actos 15 mg tablet RxNorm: 817168 1 Tablet(s) PO QAM 05/12/201408/26 Inactive lisinopril 20 mg tablet RxNorm: 735795 1 Tablet(s) PO QD 05/12/2014 0 10/26/2014 Inactive TAKE ONE TABLET BY MOUTH EVERY DAY;Gener ic For:*PRINIVIL 20 MG TABLET [AttnRPh: Saving apply/adjudicate RxGRP:SG20 RxBIN:[id number] RxPCN: ID#:[id number]] hydrocodone 5 mg-acetaminophen 325 mg tablet RxNorm: 485543 1 Tablet(s) PO TID as needed for pain for severe pain 04/30/2014 08/09/2014 Inactive hydrocodone 5 mg-acetaminophen 325 mg tablet RxNorm: 148855 1 Tablet(s) PO TID as needed for pain for severe pain 04/17/2014 04/29/2014 Inactive doxycycline hyclate 100 mg capsule RxNorm: 428614 1 Capsule(s) PO BID 03/05/2014 03/04/2014 Inactive doxycycline hyclate 100 mg capsule RxNorm: 688677 1 Capsule(s) PO BID 03/05/2014 03/14/2014 Inactive albuterol sulfate 2.5 mg/3 mL (0.083 %) solution for n ebulization RxNorm: 908919 Milliliter(s) INH USE 1 VIAL IN NEBULIZE R EVERY FOUR HOURS NEEDED FOR WHEEZING OR SHORTNESS OF BREATH 03/02/2014 06/29/2015 Inactive Generic For:*PROVENTIL 0.83 MG/ML SOLUTN 06/13/2013 2:04:46 PM Celexa 40 mg tablet RxNorm: 386478 1 Tablet(s) PO QD 1 Tablet(s) PO QD replaces lexapro. Generic OKAY 01/13/2014 06/09/2014 Inactive Actos 15 mg tablet RxNorm: 562463 1 Tablet(s) PO QAM 01/07/201405/12 Inactive lisinopril 20 mg tablet RxNorm: 558561 1 Tablet(s) PO QD 12/08/2013 0 05/12/2014 Inactive TAKE ONE TABLET BY MOUTH EVERY DAY;Gener ic For:*PRINIVIL 20 MG TABLET cefdinir 300 mg capsule RxNorm: 569517 2 Capsule(s) PO QD 11/10/2013 08/09/2014 Inactive cefdinir 300 mg capsule RxNorm: 340807 2 Capsule(s) PO QD 10/09/2013 10/15/2013 Inactive Actos 15 mg tablet RxNorm: 773068 1 Tablet(s) PO QAM 10/09/201301/06 Inactive doxycycline hyclate 100 mg capsule RxNorm: 9833401 1 Capsule(s) PO Q12H 09/18/2013 09/27/2013 Inactive omeprazole 20 mg capsule,delayed release RxNorm: 947359 2 Capsule(s) PO QD TAKE 2 CAPSULES BY MOUTH DAILY 09/03/2013 03/01/2014 Inactive Generi c For:*PRILOSEC [address] Celexa 40 mg tablet RxNorm: 693901 1 Tablet(s) PO QD re places lexapro. Generic OKAY 09/03/2013 01/13/2014 Inactive Symbicort 160 mcg-4.5 mcg/actuation HFA aerosol inhaler RxNo rm: 0832414 2 Puff(s) INH BID 08/13/2013 03/23/2014 Inactive metformin 1,000 mg tablet RxNorm: 858700 1 Tablet(s) PO BID 013 08/12/2013 Inactive TAKE ONE TABLET BY MOUTH TWI CE DAILY;Generic For:GLUCOPHAGE 1,000 MG TABLET 08/27/12 Thank you Actos 15 mg tablet RxNorm: 485215 1 Tablet(s) PO QAM 06/23/201310/09 Inactive lisinopril 20 mg tablet RxNorm: 620598 1 Tablet(s) PO QD 06/23/2013 0 12/08/2013 Inactive TAKE ONE TABLET BY MOUTH EVERY DAY;Gener ic For:*PRINIVIL 20 MG TABLET albuterol sulfate 2.5 mg/3 mL (0.083 %) solution for n ebulization RxNorm: 379761 Solution for Nebulization INH USE 1 VIAL IN NEBULIZER EVERY FOUR HOURS NEEDED FOR WHEEZING OR SHORTNESS OF BREATH 06/16/2013 03/01/2014 Inactive Generic For:*PROVENTIL 0.83 MG/ML SOLUTN 06/13/2013 2:04:46 PM prednisone 10 mg tablet RxNorm: 101923 1 Tablet(s) PO BID 04/09/2013 04/13/2013 Inactive AndroGel 1.25 gram/actuation (1%) Transdermal Gel Pump RxNorm: 2 32467 TD 04/09/2013 08/09/2014 Inactive APPLY 4 PUMPS OF GEL AT BEDTIME DIRECTED;WC (Appended: Controlled substance eRx refill - RxReferenceNumber: [id number]) azithromycin 250 mg tablet RxNorm: 540183 2 Tablet(s) PO QD 013 04/16/2013 Inactive Amaryl 2 mg tablet RxNorm: 778420 1 Tablet(s) PO BID N eeds appt in 1 month (around March 21) 02/18/2013 08/12/2013 Inactive Amaryl 2 mg tablet RxNorm: 849010 1 Tablet(s) PO BID 02/18/201302/17 Inactive metformin 1,000 mg tablet RxNorm: 136579 1 Tablet(s) PO BID 013 07/27/2013 Inactive TAKE ONE TABLET BY MOUTH TWI CE DAILY;Generic For:GLUCOPHAGE 1,000 MG TABLET 08/27/12 Thank you Actos 15 mg tablet RxNorm: 855157 1 Tablet(s) PO QAM 02/04/201306/03 Inactive albuterol sulfate 2.5 mg/3 mL (0.083 %) Neb Solution RxNorm: 463355 1 Unit Dose INH Q4H prn wheezing or shortness of breath 01/30/2013 06/15/2013 Inac tive Medrol (Gui) 4 mg tablets in a dose pack RxNorm: 154879 Tablet(s) PO as directed 01/20/2013 07/15/2013 Inactive cefdinir 300 mg capsule RxNorm: 761945 1 Capsule(s) PO BID anti biotic 01/20/2013 01/29/2013 Inactive lisinopril 20 mg tablet RxNorm: 125343 Tablet(s) PO 01/13/20132012 Inactive TAKE ONE TABLET BY MOUTH EVERY DAY;Gener ic For:*PRINIVIL 20 MG TABLET citalopram 40 mg tablet RxNorm: 321256 Tablet(s) PO 01/13/20132013 Inactive TAKE ONE (1) TABLET BY MOUTH DAILY;Gener ic For:CELEXA 40 MG TABLET omeprazole 20 mg capsule,delayed release RxNorm: 593481 Capsule(s) PO TAKE 2 CAPSULES BY MOUTH DAILY 11/15/2012 09/03/2013 Inactive Generic For:*PRILOSEC [address] amoxicillin 875 mg tablet RxNorm: 275694 1 Tablet(s) PO BID 013 10/28/2012 Inactive Actos 30 mg tablet RxNorm: 911578 1 Tablet(s) PO QD 09/23/20122011 Inactive Actos 15 mg tablet RxNorm: 695759 1 Tablet(s) PO QAM 09/23/201209/22 Inactive Actos 15 mg tablet RxNorm: 324729 1 Tablet(s) PO QAM 09/23/201202/04 Inactive prednisone 20 mg tablet RxNorm: 194171 1 Tablet(s) PO BID 08/28/2012 09/03/2012 Inactive doxycycline hyclate 100 mg tablet RxNorm: 7497507 1 Tablet(s) PO BI D 08/28/2012 09/06/2012 Inactive metformin 1,000 mg tablet RxNorm: 811484 Tablet(s) PO 08/27/201201/22 Inactive TAKE ONE TABLET BY MOUTH TWICE DAILY;Gen joshua For:GLUCOPHAGE 1,000 MG TABLET 08/27/12 Thank you citalopram 40 mg tablet RxNorm: 521671 Tablet(s) PO 07/30/20122012 Inactive TAKE ONE (1) TABLET BY MOUTH DAILY;Gener ic For:CELEXA 40 MG TABLET lisinopril 20 mg tablet RxNorm: 756212 Tablet(s) PO 07/30/20122012 Inactive TAKE ONE TABLET BY MOUTH EVERY DAY;Gener ic For:*PRINIVIL 20 MG TABLET AndroGel 1.25 gram/actuation (1%) Transdermal Gel Pump RxNor m: [id number] Gel in Metered-Dose Pump TD 07/09/2012 04/08/2013 Inactive APPLY 4 PUM PS OF GEL AT BEDTIME DIRECTED;WC (Appended: Controlled substance eRx refill - RxReferenceNumber: [id number]) citalopram 40 mg tablet RxNorm: 345817 Tablet(s) PO 07/01/20122011 Inactive TAKE ONE (1) TABLET BY MOUTH DAILY;Gener ic For:CELEXA 40 MG TABLET metformin 1,000 mg tablet RxNorm: 190857 1 Tablet(s) PO BID 012 08/25/2012 Inactive TAKE 1 TABLET BY MOUTH TWICE DAILY;Generic For:GLUCOPHAGE 1,000 MG TABLET meclizine 25 mg Tab RxNorm: 071795 1 Tablet(s) PO QID prn dizziness 05/09/2012 05/18/2012 Inactive lisinopril 20 mg tablet RxNorm: 004592 Tablet(s) PO QD 04/22/2012 Inactive TAKE ONE (1) TABLET BY MOUTH DAILY;Gener ic For:*PRINIVIL 20 MG TABLET metformin 1,000 mg tablet RxNorm: 518905 Tablet(s) PO 03/19/201212/2011 Inactive TAKE 1 TABLET BY MOUTH TWICE DAILY;Gener ic For:GLUCOPHAGE 1,000 MG TABLET cefdinir 300 mg Cap RxNorm: 528170 1 Capsule(s) PO BID 11/28/2011 Inactive cefdinir 300 mg Cap RxNorm: 863628 1 Capsule(s) PO BID 11/01/2011 Inactive citalopram 40 mg tablet RxNorm: 576516 Tablet(s) PO 10/30/20112011 Inactive TAKE ONE (1) TABLET BY MOUTH DAILY;Gener ic For:CELEXA 40 MG TABLET cefdinir 300 mg Cap RxNorm: 591329 1 Capsule(s) PO BID 10/02/2011 Inactive metformin 1,000 mg Tab RxNorm: 089850 1 Tablet(s) PO BID 09/28/2011 0 01/25/2012 Inactive citalopram 40 mg Tab RxNorm: 714867 1 Tablet(s) PO QD 09/28/201111/2011 Inactive omeprazole 20 mg capsule,delayed release RxNorm: 634112 2 Capsu le(s) PO QD 09/28/2011 03/25/2012 Inactive lisinopril 20 mg Tab RxNorm: 746693 Tablet(s) PO 08/21/2011 04/21/2012 Inactive TAKE ONE (1) TABLET BY MOUTH DAILY;Generic For:*PRINIVIL 20 MG TABLET AndroGel 1.25 gram/actuation (1%) Transdermal Gel Pump RxNor m: [id number] Gel in Metered-dose Pump TD 08/21/2011 07/09/2012 Inactive APPLY 4 PUM PS OF GEL AT BEDTIME DIRECTED (Appended: Controlled substance eRx refill - RxReferenceNumber: [id number]) Lantus Solostar 100 unit/mL (3 mL) Sub-Q Insulin Pen RxNorm: 165024 30 Unit(s) SQ QD 06/20/2011 05/08/2012 Inactive Lantus Solostar 100 unit/mL (3 mL) Sub-Q Insulin Pen RxNorm: 192602 30 Unit(s) SQ QD 06/19/2011 06/19/2011 Inactive metformin 1,000 mg Tab RxNorm: 196813 1 Tablet(s) PO BID 05/12/2011 1 11/09/2010 Inactive citalopram 40 mg Tab RxNorm: 046160 1 Tablet(s) PO QD 03/06/201105/2011 Inactive metformin 1,000 mg Tab RxNorm: 088475 1 Tablet(s) PO BID 12/27/2010 0 04/25/2011 Inactive lisinopril 20 mg Tab RxNorm: 228976 Tablet(s) PO TAKE 1 TABLET BY MOUTH EVERY DAY;Generic For:*PRINIVIL 20 MG TABLET 12/26/2010 08/20/2011 Inactive Ceftin 500 mg Tab RxNorm: 527809 1 Tablet(s) PO BID 12/19/20102010 Inactive omeprazole 20 mg Cap, Delayed Release RxNorm: 747584 2 Capsule( s) PO QD 09/13/2010 03/11/2011 Inactive Byetta 10 mcg/0.04 mL per dose Sub-Q Pen Injector RxNorm: 84 7913 1 Unit Dose SQ BID 09/07/2010 10/06/2010 Inactive Celexa 40 mg tablet RxNorm: 436189 1 Tablet(s) PO QD re places lexapro. Generic OKAY 08/09/2010 02/04/2011 Inactive Actos 30 mg Tab RxNorm: 714729 1 Tablet(s) PO QD 08/09/2010 04/02/2011 Inactive lisinopril 20 mg Tab RxNorm: 405962 1 Tablet(s) PO QD 08/09/201011/22 Inactive metformin 1,000 mg Tab RxNorm: 367727 1 Tablet(s) PO BID 08/09/2010 0 12/06/2010 Inactive Metformin 1,000 mg Tab RxNorm: 513990 1 Tablet(s) PO BID 04/26/2010 0 04/25/2010 Inactive metformin 1,000 mg Tab RxNorm: 538315 1 Tablet(s) PO BID 04/26/2010 1 Inactive Lomotil 2.5 mg-0.025 mg Tab RxNorm: 8230951 1 Tablet(s) PO TID 1-2 TABS THREE TIMES DAILY 04/05/2010 04/07/2010 Inactive Mupirocin 2 % Topical Cream RxNorm: 782718 TOP BID 04/05/201003/25 Inactive lisinopril 20 mg Tab RxNorm: 768193 1 Tablet(s) PO QD 03/29/201010/2009 Inactive Actos 30 mg Tab RxNorm: 437818 1 Tablet(s) PO QD 03/29/2010 07/26/2010 Inactive Lisinopril 20 mg Tab RxNorm: 298678 1 Tablet(s) PO QD 02/27/201001/2010 Inactive Actos 30 mg Tab RxNorm: 379888 1 Tablet(s) PO QD 02/14/2010 03/28/2010 Inactive Celexa 40 mg Tab RxNorm: 328653 1 Tablet(s) PO QD replaces lexapro 01/13/2010 07/11/2010 Inactive Cyclobenzaprine 10 mg Tab RxNorm: 586844 1 Tablet(s) PO TID prn spasm 12/23/2009 01/21/2010 Inactive Cyclobenzaprine 10 mg Tab RxNorm: 701768 1 Tablet(s) PO TID 010 12/22/2009 Inactive Hydrocodone-Acetaminophen 7.5 mg-750 mg Tab RxNorm: 225327 1 Ta blet(s) PO Q4-6H 12/23/2009 12/22/2009 Inactive aspirin 81 mg tablet RxNorm: 622052 1 Tablet(s) PO QD No Start Date Active isosorbide mononitrate ER 60 mg tablet,extended release 24 h r RxNorm: 985232 1 Tablet(s) PO QD No Start Date Active amlodipine 5 mg tablet RxNorm: 911936 1 Tablet(s) PO QD No Start Date Active Vitamin D3 1,000 unit tablet RxNorm: 622180 3 Tablet(s) PO QD No St art Date 10/26/2014 Inactive Lexapro 20 mg Tab RxNorm: 901937 1 Tablet(s) PO QD No Start Date 12/24 Inactive loperamide 2 mg tablet RxNorm: 745444 Tablet(s) PO PRN No Start Date 06/07/2016 Inactive Levemir FlexTouch U-100 Insulin 100 unit/mL (3 mL) sub cutaneous pen RxNorm: 106650 22 Unit(s) SQ QD No Start Date 12/21/2019 Inactive Janumet 50 mg-1,000 mg Tab RxNorm: 454863 1 Tablet(s) PO BID No Sta rt Date 01/12/2010 Inactive Levemir U-100 Insulin 100 unit/mL subcutaneous solution RxNo rm: 315485 10 Unit(s) SQ QHS No Start Date 12/08/2018 Inactive Medrol (Gui) 4 mg tablets in a dose pack RxNorm: 356588 Tablet(s) PO Use as directed No Start Date 12/22/2018 Inactive aspirin 325 mg tablet RxNorm: 973229 1 Tablet(s) PO QD No Start Date 08/09/2016 Inactive Efudex 5 % Topical Cream RxNorm: 708480 Application TOP QD prn fto skin lesion No Start Date 08/12/2013 Inactive nitroglycerin 0.4 mg sublingual tablet RxNorm: 720254 Tablet(s) SL as needed No Start Date 12/18/2018 Inactive levofloxacin 500 mg tablet RxNorm: 450182 1 Tablet(s) PO QD No Star t Date 08/06/2018 Inactive ferrous sulfate 325 mg (65 mg iron) tablet RxNorm: 942358 1 Tab let(s) PO QHS No Start Date 04/16/2017 Inactive fluorouracil 5 % topical cream RxNorm: 560286 1 TOP No Start James e 08/06/2018 Inactive Vitamin D3 1,000 unit capsule RxNorm: 428298 1 Capsule(s) PO QD No Start Date 02/03/2018 Inactive Hydrocodone-Acetaminophen 7.5 mg-750 mg Tab RxNorm: 363474 1 Ta blet(s) PO PRN No Start Date 08/09/2014 Inactive pantoprazole 40 mg tablet,delayed release RxNorm: 450581 1 Tabl et(s) PO QD No Start Date 01/22/2018 Inactive omeprazole 20 mg Cap, Delayed Release RxNorm: 504071 2 Capsule( s) PO QD No Start Date 09/12/2010 Inactive DuoNeb 0.5 mg-3 mg(2.5 mg base)/3 mL solution for nebulizati on RxNorm: 5422710 INH Q4H as needed No Start Date 10/22/2018 Inactive Lyrica 75 mg capsule RxNorm: 833277 2 Capsule(s) PO QHS No Start Da te 03/09/2019 Inactive isosorbide mononitrate ER 30 mg tablet,extended release 24 h r RxNorm: 743850 1 Tablet(s) PO QD No Start Date 12/08/2018 Inactive Tradjenta 5 mg tablet RxNorm: 3760750 1 Tablet(s) PO QD No Start Da te 08/09/2016 Inactive Tudorza Pressair 400 mcg/actuation breath activated RxNorm: 3850347 1 Puff(s) INH BID No Start Date 06/17/2017 Inactive Lantus Solostar 100 unit/mL (3 mL) Sub-Q Insulin Pen RxNorm: 011921 30 Unit(s) SQ QD No Start Date 06/18/2011 Inactive Requip 4 mg tablet RxNorm: 036042 1 Tablet(s) PO BID No Start Date Inactive Symbicort 160 mcg-4.5 mcg/actuation HFA aerosol inhaler RxNo rm: 6889586 2 Puff(s) INH BID No Start Date 07/11/2018 Inactive atorvastatin 40 mg tablet RxNorm: 566565 1 Tablet(s) PO QD No Start Date 12/18/2018 Inactive tramadol 50 mg tablet RxNorm: 657721 1 Tablet(s) PO TID as needed for pain (take alone with two extra strength tylenol) No Start Date 01/16/2019 Inactive Symbicort 160 mcg-4.5 mcg/actuation HFA aerosol inhaler RxNo rm: 3537618 2 Puff(s) INH BID No Start Date 08/12/2013 Inactive Vitamin D3 5,000 unit tablet RxNorm: 033218 1 Tablet(s) PO QD No St art Date 05/08/2019 Inactive albuterol sulfate 2.5 mg/3 mL (0.083 %) Neb Solution RxNorm: 324396 1 Unit Dose INH Q4H prn wheezing or shortness of breath No Start Date 01/29/2013 Inac tive Ranexa 500 mg tablet,extended release RxNorm: 973276 1 Tablet(s ) PO BID No Start Date 02/03/2018 Inactive Advair Diskus 500 mcg-50 mcg/dose powder for inhalation RxNo rm: 0545842 1 Puff(s) INH BID No Start Date 08/09/2016 Inactive clopidogrel 75 mg tablet RxNorm: 747723 1 Tablet(s) PO QD No Start Date 05/01/2018 Inactive metformin 1,000 mg Tab RxNorm: 836284 1 Tablet(s) PO BID No Start D ate 08/12/2013 Inactive Silenor 3 mg tablet RxNorm: 816991 1 Tablet(s) PO QHS No Start Date 0 04/04/2017 Inactive Medrol (Gui) 4 mg tablets in a dose pack RxNorm: 569226 Tablet(s) PO as directed No Start Date 01/19/2013 Inactive Requip 4 mg tablet RxNorm: 816957 1 Tablet(s) PO BID No Start Date Inactive clopidogrel 75 mg tablet RxNorm: 360915 1 Tablet(s) PO QD No Start Date 02/03/2018 Inactive Tradjenta 5 mg tablet RxNorm: 6150371 1 Tablet(s) PO QD No Start Da te 02/03/2018 Inactive ProAir HFA 90 mcg/Actuation Aerosol Inhaler RxNorm: 610610 2 Pu ff(s) INH PRN No Start Date 07/09/2012 Inactive Tessalon Perles 100 mg capsule RxNorm: 563990 1 Capsule (s) PO TID as needed for cough No Start Date 08/30/2014 Inactive ferrous sulfate 325 mg (65 mg iron) tablet RxNorm: 471020 1 Tab let(s) PO QD No Start Date 05/08/2019 Inactive pioglitazone 15 mg tablet RxNorm: 450214 1 Tablet(s) PO QD No Start Date 09/20/2014 Inactive Lexapro Oral RxNorm: Oral No Start Date 12/13/2009 Inactive Breo Ellipta 100 mcg-25 mcg/dose powder for inhalation RxNor m: 2172392 1 Puff(s) INH BID No Start Date 05/31/2015 Inactive Tylenol Extra Strength 500 mg tablet RxNorm: 400135 2 T ablet(s) PO QHS along with ropironole No Start Date 12/18/2018 Inactive tramadol 50 mg tablet RxNorm: 308177 1 Tablet(s) PO QID as need ed for pain No Start Date 12/24/2018 Inactive cyclobenzaprine 10 mg Tab RxNorm: 172895 Oral No Start Date 12/22 Inactive Levemir FlexTouch 100 unit/mL (3 mL) subcutaneous insulin pe n RxNorm: 208353 10 Unit(s) SQ QD No Start Date 03/08/2016 Inactive amlodipine 5 mg tablet RxNorm: 921970 1 Tablet(s) PO QD No Start Da te 08/09/2016 Inactive Novolog 100 unit/mL subcutaneous solution RxNorm: 407313 10 Uni t(s) SQ AC No Start Date 08/12/2017 Inactive Levemir FlexTouch 100 unit/mL (3 mL) subcutaneous insulin pe n RxNorm: 009262 25 Unit(s) SQ QPM No Start Date 08/06/2018 Inactive Farxiga 5 mg tablet RxNorm: 9841015 1 Tablet(s) PO QD No Start Date 0 10/05/2014 Inactive DuoNeb 0.5 mg-3 mg(2.5 mg base)/3 mL solution for nebulizati on RxNorm: 9966275 inhalation No Start Date 09/23/2014 Inactive Doxycycline 100 mg Cap RxNorm: 098466 1 Capsule(s) PO BID No Start Date 12/18/2010 Inactive Vitamin B12 1000mcg Tablet RxNorm: 1 Tablet(s) PO QD No Start Date 02/03/2018 Inactive Hydrocodone-Acetaminophen 7.5 mg-750 mg Tab RxNorm: 053481 1 Ta blet(s) PO Q6-8H No Start Date 12/22/2009 Inactive Xigduo XR 5 mg-1,000 mg tablet,extended release RxNorm: 1593 833 1 Tablet(s) PO QD No Start Date 05/31/2015 Inactive cyanocobalamin (vit B-12) 1,000 mcg/mL injection solution Rx Norm: 288970 1 injection weekly for 4 weeks 1 Milliliter(s) Inj No Start Date 05/08/2019 Inactive AndroGel 1.25 g/Actuation (1%) Transdermal Gel Pump RxNorm: 4070172 TD Apply 4pumps daily No Start Date 08/21/2011 Inactive Actoplus MET 15 mg-850 mg Tab RxNorm: 364477 1 Tablet(s) PO BID No Start Date 12/18/2010 Inactive Amaryl 2 mg tablet RxNorm: 204468 1 Tablet(s) PO BID No Start Date Inactive Levemir FlexTouch 100 unit/mL (3 mL) subcutaneous insulin pe n RxNorm: 464797 20 Unit(s) SQ QD No Start Date 06/12/2016 Inactive Symbicort 160 mcg-4.5 mcg/actuation HFA aerosol inhaler RxNo rm: 2536333 2 Puff(s) INH BID No Start Date 02/03/2018 Inactive Symbicort 160 mcg-4.5 mcg/Actuation Inhalation HFA Aer osol Inhaler RxNorm: 2735415 2 INH BID No Start Date 12/18/2010 Inactive Farxiga 5 mg tablet RxNorm: 4791383 1 Tablet(s) PO QD No Start Date 0 03/01/2015 Inactive magnesium oxide 400 mg (241.3 mg magnesium) tablet RxNorm: 1 73691 1 Tablet(s) PO QHS No Start Date 05/08/2019 Inactive Tradjenta 5 mg tablet RxNorm: 0204258 2 Tablet(s) PO QD No Start Da te 07/21/2015 Inactive Levemir FlexTouch U-100 Insulin 100 unit/mL (3 mL) sub cutaneous pen RxNorm: 168290 40 Unit(s) SQ QD No Start Date 08/06/2018 Inactive Sinemet CR 50 mg-200 mg tablet,extended release RxNorm: 8343 41 1 Tablet(s) PO QHS No Start Date 09/24/2017 Inactive metoprolol tartrate 25 mg tablet RxNorm: 696630 1/2 Tablet(s) P O BID No Start Date 02/03/2018 Inactive Requip 4 mg tablet RxNorm: 743084 1 Tablet(s) PO QHS No Start Date Inactive Ventolin HFA 90 mcg/actuation aerosol inhaler RxNorm: 420978 2 Puff(s) INH Q4H as needed No Start Date 04/22/2018 Inactive B12 5,000 mcg-100 mcg sublingual lozenge RxNorm: 014923 IM as d irected No Start Date 05/08/2019 Inactive ropinirole 1 mg tablet RxNorm: 482530 1 Tablet(s) PO QHS No Start D ate 08/06/2018 Inactive Percocet 5 mg-325 mg tablet RxNorm: 9639022 1 Tablet(s) PO Q4H as needed for pain (Dr Rizzo) No Start Date 10/22/2018 Inactive hydrocodone 5 mg-acetaminophen 325 mg tablet RxNorm: 373619 1 Tablet(s) PO TID as needed for pain for severe pain No Start Date 04/16/2014 Inactive scopolamine 1.5 mg 72 hr Transderm Patch RxNorm: 343131 Application TD Q72H for dizziness No Start Date 08/12/2013 Inactive ipratropium-albuterol 0.5 mg-3 mg(2.5 mg base)/3 mL ne bulization soln RxNorm: 7304606 1 Unit Dose INH Q4H No Start Date 01/16/2019 Inactive Medication Administered No Medication Administered data Immunizations Vaccine Codes Date Status Influenza CVX: 135 08/07/2019 Complete Pneumococcal CVX: 33 07/24/2017 Complete Influenza CVX: 135 06/13/2016 Complete Pneumococcal CVX: 133 06/13/2016 Complete Influenza CVX: 141 07/10/2012 Pneumovax Unknown 07/10/2012 Results Observation Observation Code Item Item Code Result Date S vic Location COMPLETE BLOOD COUNT [id number] WBC 5.5 10e9/L 06/17/20 19 Unknown COMPLETE BLOOD COUNT [id number] RBC 3.92 10e12/L 2018 Unknown COMPLETE BLOOD COUNT 5919513 HEMOGLOBIN 10.9 g/dL 06/17/20 19 Unknown COMPLETE BLOOD COUNT 8356236 HEMATOCRIT 34.8 % 06/17/20 19 Unknown COMPLETE BLOOD COUNT 8755556 MCV 88.8 fL 9 Unknown COMPLETE BLOOD COUNT 9915490 MCH 27.8 pg 9 Unknown COMPLETE BLOOD COUNT 6265286 MCHC 31.3 g/dL 9 Unknown COMPLETE BLOOD COUNT 9814430 PLATELET COUNT 239 10e9/L Unknown COMPLETE BLOOD COUNT 9880582 Mean Plt Volume 10.0 fL Unknown COMPLETE BLOOD COUNT 0846223 Neut Auto 68.0 % 9 Unknown COMPLETE BLOOD COUNT 6496878 Lymph Auto 14.8 % 06/17/20 19 Unknown COMPLETE BLOOD COUNT 3714024 [place] Auto 13.1 % 9 Unknown COMPLETE BLOOD COUNT 7629914 RDW 14.7 % 9 Unknown COMPLETE BLOOD COUNT 5964372 Eos Auto 3.6 % 9 Unknown COMPLETE BLOOD COUNT 5893429 Baso Auto 0.5 % 9 Unknown COMPLETE BLOOD COUNT 7107547 Neutrophil Abs 3.74 10e9/L Unknown COMPLETE BLOOD COUNT 1426883 Lymphocyte Abs 0.81 10e9/L Unknown COMPLETE BLOOD COUNT 1224486 Monocyte Abs 0.72 10e9/L 05/26 Unknown COMPLETE BLOOD COUNT 5140726 Eosinophil Abs 0.20 10e9/L Unknown COMPLETE BLOOD COUNT 9270080 RDW-SD 46.4 fL 9 Unknown COMPLETE BLOOD COUNT 4801005 Basophil Abs 0.03 10e9/L 05/26 Unknown IRON 94657 Iron 36 ug/dL 06/17/2019 Unknown VITAMIN B 12 60031 VITAMIN B12 540 pg/mL 06/17/2019 Unkn own GFR CALC 7819112 GFR Non Afr Amr 59 mL/min 06/17/2019 Unk nown GFR CALC 3216320 GFR Afr Amr >60 mL/min 06/17/2019 Unknow n ERYTHROCYTE SEDIMENTATION RATE 24853 Sed Rate 34 mm/hr 06/17/2019 Unknown THYROID STIMULATING HORMONE 77215 TSH 2.217 uIU/mL 06/17/2019 Unknown COMPREHENSIVE METABOLIC 75010 AST 12 U/L 2018 Unknown COMPREHENSIVE METABOLIC 87255 ALT 11 U/L 2018 Unknown COMPREHENSIVE METABOLIC 59793 BUN 17 mg/dL 2018 Unknown COMPREHENSIVE METABOLIC 68807 ALBUMIN 3.9 g/dL 2018 Unknown COMPREHENSIVE METABOLIC 79120 CHLORIDE 103 mmol/L 06/17 Unknown COMPREHENSIVE METABOLIC 88292 Bili Total 0.4 mg/dL 06/17 Unknown COMPREHENSIVE METABOLIC 14634 ALK PHOS 51 U/L 2018 Unknown COMPREHENSIVE METABOLIC 45950 SODIUM 140 mmol/L 06/17 Unknown COMPREHENSIVE METABOLIC 15564 CREATININE 1.20 mg/dL 05/26 Unknown COMPREHENSIVE METABOLIC 43203 CALCIUM 8.9 mg/dL 2018 Unknown COMPREHENSIVE METABOLIC 58007 POTASSIUM 4.5 mmol/L 06/17 Unknown COMPREHENSIVE METABOLIC 10264 Total Protein 6.1 g/dL Unknown COMPREHENSIVE METABOLIC 76994 Glucose 108 mg/dL 2018 Unknown COMPREHENSIVE METABOLIC 49112 Bicarbonate 27 mmol/L 05/26 Unknown COMPREHENSIVE METABOLIC 43140 AGAP 10 mmol/L 2018 Unknown FERRITIN 07283 FERRITIN 35.5 ng/mL 05/08/2019 Unknown VITAMIN D TOTAL (25 HYDROXY) 55055 Vitamin D 25 OH 26.0 ng/mL 05/08/2019 Unknown GLYCOSYLATED HEMOGLOBIN TEST 70109 Hgb A1c 93093-8 8.2 % 0 05/08/2019 Unknown MEAN GLUC 4350826 Calc Mean Gluc 189 mg/dL 05/08/2019 Unkn own GFR CALC 5130092 GFR Non Afr Amr >60 mL/min 05/08/2019 Un known GFR CALC 0781405 GFR Afr Amr >60 mL/min 05/08/2019 Unknow n VITAMIN B 12 09979 VITAMIN B12 197 pg/mL 05/08/2019 Unkn own IRON 22752 Iron 34 ug/dL 05/08/2019 Unknown COMPLETE BLOOD COUNT 3354736 WBC 6.9 10e9/L 05/08/20 19 Unknown COMPLETE BLOOD COUNT 0125448 RBC 3.95 10e12/L 2018 Unknown COMPLETE BLOOD COUNT 9923821 HEMOGLOBIN 11.1 g/dL 05/08/20 19 Unknown COMPLETE BLOOD COUNT 7133366 HEMATOCRIT 34.9 % 05/08/20 19 Unknown COMPLETE BLOOD COUNT 9056338 MCV 88.4 fL 9 Unknown COMPLETE BLOOD COUNT 7798463 MCH 28.1 pg 9 Unknown COMPLETE BLOOD COUNT 4359079 MCHC 31.8 g/dL 9 Unknown COMPLETE BLOOD COUNT 3052450 PLATELET COUNT 217 10e9/L Unknown COMPLETE BLOOD COUNT 1403667 Mean Plt Volume 9.6 fL Unknown COMPLETE BLOOD COUNT 1105874 Neut Auto 77.6 % 9 Unknown COMPLETE BLOOD COUNT 9000465 Lymph Auto 10.7 % 05/08/20 19 Unknown COMPLETE BLOOD COUNT 3838719 [place] Auto 10.4 % 9 Unknown COMPLETE BLOOD COUNT 0518106 RDW 14.7 % 9 Unknown COMPLETE BLOOD COUNT 0277748 Eos Auto 1.2 % 9 Unknown COMPLETE BLOOD COUNT 4367746 Baso Auto 0.1 % 9 Unknown COMPLETE BLOOD COUNT 9122915 Neutrophil Abs 5.35 10e9/L Unknown COMPLETE BLOOD COUNT 1634778 Lymphocyte Abs 0.74 10e9/L Unknown COMPLETE BLOOD COUNT 2957612 Monocyte Abs 0.72 10e9/L 04/24 Unknown COMPLETE BLOOD COUNT 5834517 Eosinophil Abs 0.08 10e9/L Unknown COMPLETE BLOOD COUNT 3256355 RDW-SD 46.6 fL 9 Unknown COMPLETE BLOOD COUNT 9823519 Basophil Abs 0.01 10e9/L 04/24 Unknown COMPREHENSIVE METABOLIC 20576 AST 13 U/L 2018 Unknown COMPREHENSIVE METABOLIC 86671 ALT 9 U/L 2018 Unknown COMPREHENSIVE METABOLIC 43483 BUN 18 mg/dL 2018 Unknown COMPREHENSIVE METABOLIC 22371 ALBUMIN 4.3 g/dL 2018 Unknown COMPREHENSIVE METABOLIC 94640 CHLORIDE 99 mmol/L 2018 Unknown COMPREHENSIVE METABOLIC 39924 Bili Total 0.4 mg/dL 05/08 Unknown COMPREHENSIVE METABOLIC 30702 ALK PHOS 48 U/L 2018 Unknown COMPREHENSIVE METABOLIC 07865 SODIUM 137 mmol/L 05/08 Unknown COMPREHENSIVE METABOLIC 51925 CREATININE 0.79 mg/dL 04/24 Unknown COMPREHENSIVE METABOLIC 83199 CALCIUM 9.5 mg/dL 2018 Unknown COMPREHENSIVE METABOLIC 59338 POTASSIUM 4.0 mmol/L 05/08 Unknown COMPREHENSIVE METABOLIC 38629 Total Protein 6.3 g/dL Unknown COMPREHENSIVE METABOLIC 06881 Glucose 232 mg/dL 2018 Unknown COMPREHENSIVE METABOLIC 94590 Bicarbonate 27 mmol/L 04/24 Unknown COMPREHENSIVE METABOLIC 87490 AGAP 11 mmol/L 2018 Unknown GLYCOSYLATED HEMOGLOBIN TEST 37252 Hgb A1c 06726-8 8.9 % 0 12/10/2018 Unknown MEAN GLUC 4629778 Calc Mean Gluc 209 mg/dL 12/10/2018 Unkn own LIPID GROUP 57300 Cholesterol 145 mg/dL 12/09/2018 Unkno wn LIPID GROUP 07235 Triglyceride 235 mg/dL 12/09/2018 Unkn own LIPID GROUP 46461 HDL CHOLESTEROL 40 mg/dL 12/09/2018 U nknown LIPID GROUP 50114 Chol/HDL Ratio 3.62 ratio 12/09/2018 U nknown LIPID GROUP 97094 NON-HDL Chol 105 mg/dL 12/09/2018 Unkn own LIPID GROUP 45667 LDL Cholesterol 58 mg/dL 12/09/2018 U nknown THYROID STIMULATING HORMONE 47555 TSH 1.071 uIU/mL 12/09/2018 Unknown GFR CALC 4122175 GFR Non Afr Amr >60 mL/min 12/09/2018 Un known GFR CALC 5455648 GFR Afr Amr >60 mL/min 12/09/2018 Unknow n COMPLETE BLOOD COUNT 5238275 WBC 7.6 10e9/L 12/10/19 19 Unknown COMPLETE BLOOD COUNT 0258547 RBC 3.97 10e12/L 2018 Unknown COMPLETE BLOOD COUNT 1373915 HEMOGLOBIN 11.4 g/dL 12/10/19 19 Unknown COMPLETE BLOOD COUNT 7801988 HEMATOCRIT 35.8 % 12/10/19 19 Unknown COMPLETE BLOOD COUNT 6666412 MCV 90.2 fL 9 Unknown COMPLETE BLOOD COUNT 7239243 MCH 28.7 pg 9 Unknown COMPLETE BLOOD COUNT 8534700 MCHC 31.8 g/dL 9 Unknown COMPLETE BLOOD COUNT 9125294 PLATELET COUNT 200 10e9/L Unknown COMPLETE BLOOD COUNT 1004878 Mean Plt Volume 10.1 fL Unknown COMPLETE BLOOD COUNT 6877803 Neut Auto 79.0 % 9 Unknown COMPLETE BLOOD COUNT 1653969 Lymph Auto 8.3 % 12/10/19 19 Unknown COMPLETE BLOOD COUNT 8655310 [place] Auto 10.8 % 9 Unknown COMPLETE BLOOD COUNT 0494741 RDW 14.6 % 9 Unknown COMPLETE BLOOD COUNT 7243630 Eos Auto 1.5 % 9 Unknown COMPLETE BLOOD COUNT 5744501 Baso Auto 0.4 % 9 Unknown COMPLETE BLOOD COUNT 4997169 Neutrophil Abs 6.00 10e9/L Unknown COMPLETE BLOOD COUNT 5878337 Lymphocyte Abs 0.63 10e9/L Unknown COMPLETE BLOOD COUNT 9117240 Monocyte Abs 0.82 10e9/L 11/22 Unknown COMPLETE BLOOD COUNT 5954733 Eosinophil Abs 0.11 10e9/L Unknown COMPLETE BLOOD COUNT 6449405 RDW-SD 46.9 fL 9 Unknown COMPLETE BLOOD COUNT 4190179 Basophil Abs 0.03 10e9/L 11/22 Unknown COMPREHENSIVE METABOLIC 88301 AST 11 U/L 2018 Unknown COMPREHENSIVE METABOLIC 34629 ALT 11 U/L 2018 Unknown COMPREHENSIVE METABOLIC 55606 BUN 21 mg/dL 2018 Unknown COMPREHENSIVE METABOLIC 36444 ALBUMIN 4.7 g/dL 2018 Unknown COMPREHENSIVE METABOLIC 64639 CHLORIDE 99 mmol/L 2018 Unknown COMPREHENSIVE METABOLIC 39479 Bili Total 0.4 mg/dL 12/09 Unknown COMPREHENSIVE METABOLIC 95735 ALK PHOS 73 U/L 2018 Unknown COMPREHENSIVE METABOLIC 22082 SODIUM 137 mmol/L 12/09 Unknown COMPREHENSIVE METABOLIC 52971 CREATININE 1.12 mg/dL 11/22 Unknown COMPREHENSIVE METABOLIC 84578 CALCIUM 9.4 mg/dL 2018 Unknown COMPREHENSIVE METABOLIC 48468 POTASSIUM 4.2 mmol/L 12/09 Unknown COMPREHENSIVE METABOLIC 97926 Total Protein 6.8 g/dL Unknown COMPREHENSIVE METABOLIC 84085 Glucose 194 mg/dL 2018 Unknown COMPREHENSIVE METABOLIC 84816 Bicarbonate 30 mmol/L 11/22 Unknown COMPREHENSIVE METABOLIC 69537 AGAP 8 mmol/L 2018 Unknown FREE T4 66229 T4 Free 0.86 ng/dL 12/09/2018 Unknown COMPLETE BLOOD COUNT 1883277 WBC 6.8 10e9/L 04/17/20 17 Unknown COMPLETE BLOOD COUNT 4366022 RBC 3.86 10e12/L 2016 Unknown COMPLETE BLOOD COUNT 2788420 HEMOGLOBIN 9.8 g/dL 04/17/20 17 Unknown COMPLETE BLOOD COUNT 1330018 HEMATOCRIT 31.1 % 04/17/20 17 Unknown COMPLETE BLOOD COUNT 7796835 MCV 80.6 fL 7 Unknown COMPLETE BLOOD COUNT 9482458 MCH 25.4 pg 7 Unknown COMPLETE BLOOD COUNT 5934750 MCHC 31.5 g/dL 7 Unknown COMPLETE BLOOD COUNT 5882626 PLATELET COUNT 247 10e9/L Unknown COMPLETE BLOOD COUNT 1438037 Mean Plt Volume 9.7 fL Unknown COMPLETE BLOOD COUNT 3501439 Neut Auto 74.1 % 7 Unknown COMPLETE BLOOD COUNT 8697162 Lymph Auto 12.0 % 04/17/20 17 Unknown COMPLETE BLOOD COUNT 9638772 [place] Auto 10.8 % 7 Unknown COMPLETE BLOOD COUNT 4697165 RDW 15.9 % 7 Unknown COMPLETE BLOOD COUNT 9786907 Eos Auto 2.5 % 7 Unknown COMPLETE BLOOD COUNT 2577595 Baso Auto 0.6 % 7 Unknown COMPLETE BLOOD COUNT 9929902 Neutrophil Abs 5.04 10e9/L Unknown COMPLETE BLOOD COUNT 7954857 Lymphocyte Abs 0.82 10e9/L Unknown COMPLETE BLOOD COUNT 9126551 Monocyte Abs 0.73 10e9/L 03/25 Unknown COMPLETE BLOOD COUNT 4263700 Eosinophil Abs 0.17 10e9/L Unknown COMPLETE BLOOD COUNT 3685957 RDW-SD 44.4 fL 7 Unknown COMPLETE BLOOD COUNT 3116794 Basophil Abs 0.04 10e9/L 03/25 Unknown MEAN GLUC 5260412 Calc Mean Gluc 223 mg/dL 04/17/2017 Unkn own GFR CALC 7614611 GFR Non Afr Amr >60 mL/min 04/17/2017 Un known GFR CALC 2820438 GFR Afr Amr >60 mL/min 04/17/2017 Unknow n GLYCOSYLATED HEMOGLOBIN TEST 77148 Hgb A1c 24504-2 9.4 % 0 04/17/2017 Unknown IRON 40763 Iron 37 ug/dL 04/17/2017 Unknown VITAMIN B 12 14556 VITAMIN B12 280 pg/mL 04/17/2017 Unkn own THYROID STIMULATING HORMONE 75125 TSH 2.481 uIU/mL 04/17/2017 Unknown COMPREHENSIVE METABOLIC 89566 AST 13 U/L 2016 Unknown COMPREHENSIVE METABOLIC 07485 ALT 12 U/L 2016 Unknown COMPREHENSIVE METABOLIC 09140 BUN 18 mg/dL 2016 Unknown COMPREHENSIVE METABOLIC 33279 ALBUMIN 4.7 g/dL 2016 Unknown COMPREHENSIVE METABOLIC 19394 CHLORIDE 103 mmol/L 04/17 Unknown COMPREHENSIVE METABOLIC 59473 Bili Total 0.4 mg/dL 04/17 Unknown COMPREHENSIVE METABOLIC 90424 ALK PHOS 49 U/L 2016 Unknown COMPREHENSIVE METABOLIC 38155 SODIUM 140 mmol/L 04/17 Unknown COMPREHENSIVE METABOLIC 84418 CREATININE 1.14 mg/dL 03/25 Unknown COMPREHENSIVE METABOLIC 38617 CALCIUM 9.4 mg/dL 2016 Unknown COMPREHENSIVE METABOLIC 23436 POTASSIUM 4.4 mmol/L 04/17 Unknown COMPREHENSIVE METABOLIC 61088 Total Protein 6.7 g/dL Unknown COMPREHENSIVE METABOLIC 39947 Glucose 266 mg/dL 2016 Unknown COMPREHENSIVE METABOLIC 26393 Bicarbonate 25 mmol/L 03/25 Unknown COMPREHENSIVE METABOLIC 70869 AGAP 12 mmol/L 2016 Unknown FERRITIN 24821 FERRITIN 10.0 ng/mL 04/17/2017 Unknown COMPLETE BLOOD COUNT 3538220 WBC 6.8 10e9/L 12/22/19 17 Unknown COMPLETE BLOOD COUNT 6732258 RBC 3.70 10e12/L 2016 Unknown COMPLETE BLOOD COUNT 9388091 HEMOGLOBIN 8.0 g/dL 12/22/19 17 Unknown COMPLETE BLOOD COUNT 0771935 HEMATOCRIT 26.7 % 12/22/19 17 Unknown COMPLETE BLOOD COUNT 4394751 MCV 72.2 fL 7 Unknown COMPLETE BLOOD COUNT 7255911 MCH 21.6 pg 7 Unknown COMPLETE BLOOD COUNT 3968068 MCHC 30.0 g/dL 7 Unknown COMPLETE BLOOD COUNT 5848101 PLATELET COUNT 290 10e9/L Unknown COMPLETE BLOOD COUNT 2934933 Mean Plt Volume 9.3 fL Unknown COMPLETE BLOOD COUNT 7651763 Neut Auto 80.2 % 7 Unknown COMPLETE BLOOD COUNT 1216289 Lymph Auto 9.8 % 12/22/19 17 Unknown COMPLETE BLOOD COUNT 3585401 [place] Auto 8.1 % 7 Unknown COMPLETE BLOOD COUNT 9777979 RDW 17.4 % 7 Unknown COMPLETE BLOOD COUNT 6451170 Eos Auto 1.5 % 7 Unknown COMPLETE BLOOD COUNT 7633096 Baso Auto 0.4 % 7 Unknown COMPLETE BLOOD COUNT 3546924 Neutrophil Abs 5.45 10e9/L Unknown COMPLETE BLOOD COUNT 2851656 Lymphocyte Abs 0.67 10e9/L Unknown COMPLETE BLOOD COUNT 0733161 Monocyte Abs 0.55 10e9/L 11/24 Unknown COMPLETE BLOOD COUNT 6468590 Eosinophil Abs 0.10 10e9/L Unknown COMPLETE BLOOD COUNT 8399726 RDW-SD 44.1 fL 7 Unknown COMPLETE BLOOD COUNT 1505216 Basophil Abs 0.03 10e9/L 11/24 Unknown COMPLETE BLOOD COUNT 2367300 WBC 7.6 10e9/L 12/13/19 17 Unknown COMPLETE BLOOD COUNT 4811495 RBC 3.71 10e12/L 2016 Unknown COMPLETE BLOOD COUNT 6798267 HEMOGLOBIN 8.0 g/dL 12/13/19 17 Unknown COMPLETE BLOOD COUNT 3000827 HEMATOCRIT 27.3 % 12/13/19 17 Unknown COMPLETE BLOOD COUNT 3711816 MCV 73.6 fL 7 Unknown COMPLETE BLOOD COUNT 7223836 MCH 21.6 pg 7 Unknown COMPLETE BLOOD COUNT 3013444 MCHC 29.3 g/dL 7 Unknown COMPLETE BLOOD COUNT 1075222 PLATELET COUNT 330 10e9/L Unknown COMPLETE BLOOD COUNT 0779250 Mean Plt Volume 9.7 fL Unknown COMPLETE BLOOD COUNT 5072408 Neut Auto 73.2 % 7 Unknown COMPLETE BLOOD COUNT 5081926 Lymph Auto 14.5 % 12/13/19 17 Unknown COMPLETE BLOOD COUNT 8634409 [place] Auto 10.5 % 7 Unknown COMPLETE BLOOD COUNT 0898554 RDW 17.3 % 7 Unknown COMPLETE BLOOD COUNT 4033074 Eos Auto 1.3 % 7 Unknown COMPLETE BLOOD COUNT 1074487 Baso Auto 0.5 % 7 Unknown COMPLETE BLOOD COUNT 5012105 Neutrophil Abs 5.56 10e9/L Unknown COMPLETE BLOOD COUNT 7062229 Lymphocyte Abs 1.10 10e9/L Unknown COMPLETE BLOOD COUNT 3851265 Monocyte Abs 0.80 10e9/L 11/23 Unknown COMPLETE BLOOD COUNT 1985411 Eosinophil Abs 0.10 10e9/L Unknown COMPLETE BLOOD COUNT 5751642 RDW-SD 45.2 fL 7 Unknown COMPLETE BLOOD COUNT 5981593 Basophil Abs 0.04 10e9/L 11/23 Unknown IRON 51917 Iron 69 ug/dL 03/09/2016 Unknown VITAMIN B 12 08525 VITAMIN B12 311 pg/mL 03/09/2016 Unkn own MEAN GLUC 2285476 Mean Glucose 260 mg/dL 03/07/2016 Unknow n GLYCOSYLATED HEMOGLOBIN TEST 60621 Hgb A1c 14075-4 10.7 % 0 03/07/2016 Unknown COMPREHENSIVE METABOLIC 86023 AST 14 U/L 2015 Unknown COMPREHENSIVE METABOLIC 41149 ALT 21 U/L 2015 Unknown COMPREHENSIVE METABOLIC 49325 BUN 27 mg/dL 2015 Unknown COMPREHENSIVE METABOLIC 44662 ALBUMIN 4.5 g/dL 2015 Unknown COMPREHENSIVE METABOLIC 94646 CHLORIDE 101 mmol/L 03/06 Unknown COMPREHENSIVE METABOLIC 45553 Bili Total 0.4 mg/dL 03/06 Unknown COMPREHENSIVE METABOLIC 09311 ALK PHOS 49 U/L 2015 Unknown COMPREHENSIVE METABOLIC 30805 SODIUM 136 mmol/L 03/06 Unknown COMPREHENSIVE METABOLIC 66743 CREATININE 1.16 mg/dL 02/22 Unknown COMPREHENSIVE METABOLIC 45963 CALCIUM 9.9 mg/dL 2015 Unknown COMPREHENSIVE METABOLIC 95218 POTASSIUM 4.5 mmol/L 03/06 Unknown COMPREHENSIVE METABOLIC 90658 Total Protein 6.7 g/dL Unknown COMPREHENSIVE METABOLIC 60472 Glucose 245 mg/dL 2015 Unknown COMPREHENSIVE METABOLIC 14933 Bicarbonate 24 mmol/L 02/22 Unknown COMPREHENSIVE METABOLIC 44700 AGAP 11 mmol/L 2015 Unknown THYROID STIMULATING HORMONE 62094 TSH 0.775 uIU/mL 03/06/2016 Unknown TESTOSTERONE TOTAL 48627 Testos Total 96 ng/dL 03/06/20 16 Unknown LIPID GROUP 27184 Cholesterol 146 mg/dL 03/06/2016 Unkno wn LIPID GROUP 35296 Triglyceride 249 mg/dL 03/06/2016 Unkn own LIPID GROUP 48891 HDL CHOLESTEROL 46 mg/dL 03/06/2016 U nknown LIPID GROUP 49219 Chol/HDL Ratio 3.17 ratio 03/06/2016 U nknown LIPID GROUP 77011 NON-HDL Chol 100 mg/dL 03/06/2016 Unkn own LIPID GROUP 25988 LDL Cholesterol 50 mg/dL 03/06/2016 U nknown COMPLETE BLOOD COUNT 8582682 WBC 11.2 10e9/L 016 Unknown COMPLETE BLOOD COUNT 9876817 RBC 3.94 10e12/L 2015 Unknown COMPLETE BLOOD COUNT 8984530 HEMOGLOBIN 11.4 g/dL 03/06/20 16 Unknown COMPLETE BLOOD COUNT 2642144 HEMATOCRIT 33.7 % 03/06/20 16 Unknown COMPLETE BLOOD COUNT 0276108 MCV 85.5 fL 6 Unknown COMPLETE BLOOD COUNT 7211224 MCH 28.9 pg 6 Unknown COMPLETE BLOOD COUNT 6736283 MCHC 33.8 g/dL 6 Unknown COMPLETE BLOOD COUNT 0181920 PLATELET COUNT 204 10e9/L Unknown COMPLETE BLOOD COUNT 8552568 Mean Plt Volume 10.1 fL Unknown COMPLETE BLOOD COUNT 2113549 Neut Auto 85.9 % 6 Unknown COMPLETE BLOOD COUNT 1879909 Lymph Auto 6.8 % 03/06/20 16 Unknown COMPLETE BLOOD COUNT 8643254 [place] Auto 7.0 % 6 Unknown COMPLETE BLOOD COUNT 3679068 RDW 13.7 % 6 Unknown COMPLETE BLOOD COUNT 8915305 Eos Auto 0.1 % 6 Unknown COMPLETE BLOOD COUNT 2967577 Baso Auto 0.2 % 6 Unknown COMPLETE BLOOD COUNT 5137641 Neutrophil Abs 9.62 10e9/L Unknown COMPLETE BLOOD COUNT 6455002 Lymphoctye Abs 0.76 10e9/L Unknown COMPLETE BLOOD COUNT 9312206 Monocyte Abs 0.78 10e9/L 02/22 Unknown COMPLETE BLOOD COUNT 2495546 Eosinophil Abs 0.01 10e9/L Unknown COMPLETE BLOOD COUNT 0535323 RDW-SD 41.9 fL 6 Unknown COMPLETE BLOOD COUNT 6399205 Basophil Abs 0.02 10e9/L 02/22 Unknown FREE T4 23917 T4 Free 0.89 ng/dL 03/06/2016 Unknown GFR CALC 6166633 GFR Non Afr Amr >60 mL/min 03/06/2016 Un known GFR CALC 3426856 GFR Afr Amr >60 mL/min 03/06/2016 Unknow n PSA EQUIMOLAR JONATAN 87937 PSA Total 0.78 ng/mL 6 Unknown FREE T4 85562 FREE T4 0.90 NG/DL 07/01/2015 Unknown LIPID GROUP 30272 HDL TEST 44 MG/DL 07/01/2015 Unknown LIPID GROUP 60541 TRIG 303 MG/DL 07/01/2015 Unknown LIPID GROUP 31469 TEST LDL 56 MG/DL 07/01/2015 Unknown LIPID GROUP 23642 CHOL 161 MG/DL 07/01/2015 Unknown LIPID GROUP 28007 RCHOL/HDL 3.66 RATIO 07/01/2015 Unknow n LIPID GROUP 71507 NON-HDL CH 117 MG/DL 07/01/2015 Unknow n THYROID STIMULATING HORMONE 88997 TSH 1.783 uIU/ML 07/01/2015 Unknown COMPLETE BLOOD COUNT 5892968 WBC 6.6 10e9/L 07/01/20 15 Unknown COMPLETE BLOOD COUNT 0462379 RBC 4.18 10e12/L 2014 Unknown COMPLETE BLOOD COUNT 9130835 HGB 12.2 g/dL 5 Unknown COMPLETE BLOOD COUNT 0271889 HCT DET 37.0 % 5 Unknown COMPLETE BLOOD COUNT 8937993 MCV 88.5 fL 5 Unknown COMPLETE BLOOD COUNT 4723517 MCH 29.2 pg 5 Unknown COMPLETE BLOOD COUNT 7368701 MCHC 33.0 g/dL 5 Unknown COMPLETE BLOOD COUNT 1396268 PLT 224 10e9/L 07/01/20 15 Unknown COMPLETE BLOOD COUNT 3408257 MPV 10.4 fL 5 Unknown COMPLETE BLOOD COUNT 7793977 SUSIE % 72.6 % 5 Unknown COMPLETE BLOOD COUNT 8948713 LY % 14.1 % 5 Unknown COMPLETE BLOOD COUNT 0315587 MON % 10.2 % 5 Unknown COMPLETE BLOOD COUNT 9167155 EOS % 2.6 % 5 Unknown COMPLETE BLOOD COUNT 8965991 BASO % 0.5 % 5 Unknown COMPLETE BLOOD COUNT 1242388 RDW 14.1 % 5 Unknown COMPLETE BLOOD COUNT 2880013 ABS SUSIE 4.79 10e9/L 015 Unknown COMPLETE BLOOD COUNT 7632128 ABS LYMPH 0.93 10e9/L 015 Unknown COMPLETE BLOOD COUNT 1141259 ABS MONO 0.67 10e9/L 015 Unknown COMPLETE BLOOD COUNT 0003908 ABS EOS 0.17 10e9/L 015 Unknown COMPLETE BLOOD COUNT 9431923 ABS BASO 0.03 10e9/L 015 Unknown COMPLETE BLOOD COUNT 9058743 RDW-SD 43.9 fL 5 Unknown PSA EQUIMOLAR JONATAN 72524 PSA EQ 0.73 NG/ML 5 Unknown COMPREHENSIVE METABOLIC 63451 AST 24 U/L 2014 Unknown COMPREHENSIVE METABOLIC 76377 ALT 26 IU/L 2014 Unknown COMPREHENSIVE METABOLIC 17803 BUN 26 MG/DL 2014 Unknown COMPREHENSIVE METABOLIC 90665 ALBUMIN 4.6 GM/DL 2014 Unknown COMPREHENSIVE METABOLIC 25786 CHLORIDE 102 MMOL/L 06/01 Unknown COMPREHENSIVE METABOLIC 87436 BILI TOT 0.5 MG/DL 2014 Unknown COMPREHENSIVE METABOLIC 19708 ALK PHOS 56 U/L 2014 Unknown COMPREHENSIVE METABOLIC 82263 SODIUM 136 MMOL/L 06/01 Unknown COMPREHENSIVE METABOLIC 32128 CREATININE 1.16 MG/DL 04/2015 Unknown COMPREHENSIVE METABOLIC 28028 CALCIUM 9.8 MG/DL 2014 Unknown COMPREHENSIVE METABOLIC 81611 POTASSIUM 4.6 MMOL/L 06/01 Unknown COMPREHENSIVE METABOLIC 14606 PROT TOT 7.4 GM/DL 2014 Unknown COMPREHENSIVE METABOLIC 24127 Glucose 223 MG/DL 2014 Unknown COMPREHENSIVE METABOLIC 73052 BICARB 27 MMOL/L 2014 Unknown COMPREHENSIVE METABOLIC 94639 ANION GAP 7 MEQ/L 2014 Unknown GFR CALC 4608302 GFR AA >60 ML/MIN 06/01/2015 Unknown GFR CALC 6652469 GFR NON-AA >60 ML/MIN 06/01/2015 Unknown GLYCOSYLATED HEMOGLOBIN TEST 94010 A1C HPLC 04641-9 8.9 % 0 06/01/2015 Unknown GFR CALC 0267218 GFR AA >60 ML/MIN 02/25/2015 Unknown GFR CALC 7992394 GFR NON-AA >60 ML/MIN 02/25/2015 Unknown COMPREHENSIVE METABOLIC 64625 AST 24 U/L 2014 Unknown COMPREHENSIVE METABOLIC 88498 ALT 25 IU/L 2014 Unknown COMPREHENSIVE METABOLIC 91106 BUN 14 MG/DL 2014 Unknown COMPREHENSIVE METABOLIC 99305 ALBUMIN 4.5 GM/DL 2014 Unknown COMPREHENSIVE METABOLIC 16825 CHLORIDE 99 MMOL/L 2014 Unknown COMPREHENSIVE METABOLIC 69716 BILI TOT 0.5 MG/DL 2014 Unknown COMPREHENSIVE METABOLIC 10526 ALK PHOS 48 U/L 2014 Unknown COMPREHENSIVE METABOLIC 64660 SODIUM 136 MMOL/L 02/25 Unknown COMPREHENSIVE METABOLIC 52931 CREATININE 0.97 MG/DL 12/2014 Unknown COMPREHENSIVE METABOLIC 65373 CALCIUM 9.9 MG/DL 2014 Unknown COMPREHENSIVE METABOLIC 03654 POTASSIUM 4.4 MMOL/L 02/25 Unknown COMPREHENSIVE METABOLIC 01152 PROT TOT 7.1 GM/DL 2014 Unknown COMPREHENSIVE METABOLIC 75409 Glucose 171 MG/DL 2014 Unknown COMPREHENSIVE METABOLIC 39591 BICARB 25 MMOL/L 2014 Unknown COMPREHENSIVE METABOLIC 72030 ANION GAP 12 MEQ/L 2014 Unknown PROTEIN/CREAT URINE WITH RATIO [id number] PROT R U 19 MG/D L 08/27/2014 Unknown PROTEIN/CREAT URINE WITH RATIO 03063|[id number] CREAT R U 111 MG/ DL 08/27/2014 Unknown PROTEIN/CREAT URINE WITH RATIO 20983|[id number] XRATIO P/C 171 MG /G 08/27/2014 Unknown MICROALBUMIN URINE RANDOM 96182 MICRL MG/L 34.7 MG/L 12/2013 Unknown MICROALBUMIN URINE RANDOM 38907 XM.ALB/CRE 32.7 MG/GCR 1 10/28/2013 Unknown MICROALBUMIN URINE RANDOM 97085 CREAT MG/D 106 MG/DL 12/2013 Unknown MICROALBUMIN URINE RANDOM 40303 CRE/100 1.06 G/L 12/2013 Unknown COMPLETE BLOOD COUNT [id number] WBC 7.1 10e9/L 08/05/20 14 Unknown COMPLETE BLOOD COUNT [id number] RBC 4.35 10e12/L 2013 Unknown COMPLETE BLOOD COUNT [id number] HGB 12.9 g/dL 4 Unknown COMPLETE BLOOD COUNT [id number] HCT DET 39.4 % 4 Unknown COMPLETE BLOOD COUNT [id number] MCV 90.6 fL 4 Unknown COMPLETE BLOOD COUNT [id number] MCH 29.7 pg 4 Unknown COMPLETE BLOOD COUNT [id number] MCHC 32.7 g/dL 4 Unknown COMPLETE BLOOD COUNT [id number] PLT 240 10e9/L 08/05/20 14 Unknown COMPLETE BLOOD COUNT [id number] MPV 10.3 fL 4 Unknown COMPLETE BLOOD COUNT [id number] SUSIE % 70.0 % 4 Unknown COMPLETE BLOOD COUNT [id number] LY % 16.4 % 4 Unknown COMPLETE BLOOD COUNT [id number] MON % 9.2 % 4 Unknown COMPLETE BLOOD COUNT [id number] EOS % 3.8 % 4 Unknown COMPLETE BLOOD COUNT [id number] BASO % 0.6 % 4 Unknown COMPLETE BLOOD COUNT [id number] RDW 13.4 % 4 Unknown COMPLETE BLOOD COUNT [id number] ABS SUSIE 4.97 10e9/L 014 Unknown COMPLETE BLOOD COUNT [id number] ABS LYMPH 1.16 10e9/L 014 Unknown COMPLETE BLOOD COUNT [id number] ABS MONO 0.65 10e9/L 014 Unknown COMPLETE BLOOD COUNT [id number] ABS EOS 0.27 10e9/L 014 Unknown COMPLETE BLOOD COUNT [id number] ABS BASO 0.04 10e9/L 014 Unknown COMPLETE BLOOD COUNT [id number] RDW-SD 43.3 fL 4 Unknown FREE T4 68512 FREE T4 1.02 NG/DL 08/05/2014 Unknown GFR CALC 8298117 GFR AA >60 ML/MIN 08/05/2014 Unknown GFR CALC 0125361 GFR NON-AA >60 ML/MIN 08/05/2014 Unknown GLYCOSYLATED HEMOGLOBIN TEST 65392 A1C HPLC 94430-7 7.7 % 1 10/05/2013 Unknown COMPREHENSIVE METABOLIC 03532 AST 19 U/L 2013 Unknown COMPREHENSIVE METABOLIC 30297 ALT 21 IU/L 2013 Unknown COMPREHENSIVE METABOLIC 59220 BUN 25 MG/DL 2013 Unknown COMPREHENSIVE METABOLIC 82365 ALBUMIN 4.6 GM/DL 2013 Unknown COMPREHENSIVE METABOLIC 37510 CHLORIDE 103 MMOL/L 08/05 Unknown COMPREHENSIVE METABOLIC 82949 BILI TOT 0.4 MG/DL 2013 Unknown COMPREHENSIVE METABOLIC 22453 ALK PHOS 45 U/L 2013 Unknown COMPREHENSIVE METABOLIC 50969 SODIUM 138 MMOL/L 08/05 Unknown COMPREHENSIVE METABOLIC 62594 CREATININE 1.01 MG/DL 07/25 Unknown COMPREHENSIVE METABOLIC 61234 CALCIUM 9.8 MG/DL 2013 Unknown COMPREHENSIVE METABOLIC 12820 POTASSIUM 4.7 MMOL/L 08/05 Unknown COMPREHENSIVE METABOLIC 94066 PROT TOT 7.0 GM/DL 2013 Unknown COMPREHENSIVE METABOLIC 96485 Glucose 145 MG/DL 2013 Unknown COMPREHENSIVE METABOLIC 08240 BICARB 27 MMOL/L 2013 Unknown COMPREHENSIVE METABOLIC 30825 ANION GAP 8 MEQ/L 2013 Unknown THYROID STIMULATING HORMONE 51174 TSH 1.922 uIU/ML 08/05/2014 Unknown LIPID GROUP 86795 HDL TEST 47 MG/DL 08/05/2014 Unknown LIPID GROUP 98181 TRIG 224 MG/DL 08/05/2014 Unknown LIPID GROUP 28287 TEST LDL 125 MG/DL 08/05/2014 Unknown LIPID GROUP 02029 CHOL 217 MG/DL 08/05/2014 Unknown LIPID GROUP 30260 RCHOL/HDL 4.62 RATIO 08/05/2014 Unknow n LIPID GROUP 33555 NON-HDL CH 170 MG/DL 08/05/2014 Unknow n MYCOPLASMA ANTIBODY, IFA [id number] MYCO G IFA 1:256 03/24 Unknown MYCOPLASMA ANTIBODY, IFA [id number] MYCO M IFA <1:10 03/24 Unknown MYCOPLASMA ANTIBODY, IFA [id number] MYCO INTER SEE BELO 03/24 Unknown COMPLETE BLOOD COUNT [id number] WBC 8.3 10e9/L 04/09/20 13 Unknown COMPLETE BLOOD COUNT [id number] RBC 4.61 10e12/L 2012 Unknown COMPLETE BLOOD COUNT [id number] HGB 13.9 g/dL 3 Unknown COMPLETE BLOOD COUNT [id number] HCT DET 41.2 % 3 Unknown COMPLETE BLOOD COUNT [id number] MCV 89.4 fL 3 Unknown COMPLETE BLOOD COUNT [id number] MCH 30.2 pg 3 Unknown COMPLETE BLOOD COUNT [id number] MCHC 33.7 g/dL 3 Unknown COMPLETE BLOOD COUNT [id number] PLT 249 10e9/L 04/09/20 13 Unknown COMPLETE BLOOD COUNT [id number] MPV 9.8 fL 3 Unknown COMPLETE BLOOD COUNT [id number] SUSIE % 65.9 % 3 Unknown COMPLETE BLOOD COUNT [id number] LY % 19.8 % 3 Unknown COMPLETE BLOOD COUNT [id number] MON % 10.8 % 3 Unknown COMPLETE BLOOD COUNT [id number] EOS % 3.0 % 3 Unknown COMPLETE BLOOD COUNT [id number] BASO % 0.5 % 3 Unknown COMPLETE BLOOD COUNT [id number] RDW 14.0 % 3 Unknown COMPLETE BLOOD COUNT [id number] ABS SUSIE 5.47 10e9/L 013 Unknown COMPLETE BLOOD COUNT [id number] ABS LYMPH 1.64 10e9/L 013 Unknown COMPLETE BLOOD COUNT [id number] ABS MONO 0.90 10e9/L 013 Unknown COMPLETE BLOOD COUNT [id number] ABS EOS 0.25 10e9/L 013 Unknown COMPLETE BLOOD COUNT [id number] ABS BASO 0.04 10e9/L 013 Unknown COMPLETE BLOOD COUNT [id number] RDW-SD 45.0 fL 3 Unknown URIC ACID 46835 URIC ACID 5.3 MG/DL 02/12/2013 Unknown FREE T4 29674 FREE T4 1.09 NG/DL 02/11/2013 Unknown COMPLETE BLOOD COUNT [id number] WBC 6.3 10e9/L 02/12/20 13 Unknown COMPLETE BLOOD COUNT [id number] RBC 4.29 10e12/L 2012 Unknown COMPLETE BLOOD COUNT [id number] HGB 13.1 g/dL 3 Unknown COMPLETE BLOOD COUNT [id number] HCT DET 39.7 % 3 Unknown COMPLETE BLOOD COUNT 7845081 MCV 92.5 fL 3 Unknown COMPLETE BLOOD COUNT [id number] MCH 30.5 pg 3 Unknown COMPLETE BLOOD COUNT [id number] MCHC 33.0 g/dL 3 Unknown COMPLETE BLOOD COUNT [id number] PLT 247 10e9/L 02/12/20 13 Unknown COMPLETE BLOOD COUNT [id number] MPV 10.0 fL 3 Unknown COMPLETE BLOOD COUNT [id number] SUSIE % 73.4 % 3 Unknown COMPLETE BLOOD COUNT [id number] LY % 13.5 % 3 Unknown COMPLETE BLOOD COUNT [id number] MON % 9.4 % 3 Unknown COMPLETE BLOOD COUNT [id number] EOS % 2.9 % 3 Unknown COMPLETE BLOOD COUNT [id number] BASO % 0.8 % 3 Unknown COMPLETE BLOOD COUNT 7335583 RDW 13.8 % 3 Unknown COMPLETE BLOOD COUNT 9641006 ABS SUSIE 4.62 10e9/L 013 Unknown COMPLETE BLOOD COUNT [id number] ABS LYMPH 0.85 10e9/L 013 Unknown COMPLETE BLOOD COUNT [id number] ABS MONO 0.59 10e9/L 013 Unknown COMPLETE BLOOD COUNT [id number] ABS EOS 0.18 10e9/L 013 Unknown COMPLETE BLOOD COUNT [id number] ABS BASO 0.05 10e9/L 013 Unknown COMPLETE BLOOD COUNT [id number] RDW-SD 45.7 fL 3 Unknown HEMOGLOBIN A1C (GLYCOSYLATED) 3731858 A1C HPLC 56315-5 7.5 % 02/11/2013 Unknown THYROID STIMULATING HORMONE 30477 TSH 1.466 uIU/ML 02/11/2013 Unknown VITAMIN B 12 FOLIC ACID 86475|44389 VIT B 12 625 PG/ML 01/23 Unknown VITAMIN B 12 FOLIC ACID 72040|98042 FOLIC ACID 15.6 NG/ML Unknown COMPREHENSIVE METABOLIC 17238 AST 18 U/L 2012 Unknown COMPREHENSIVE METABOLIC 65282 ALT 21 IU/L 2012 Unknown COMPREHENSIVE METABOLIC 07291 BUN 25 MG/DL 2012 Unknown COMPREHENSIVE METABOLIC 35285 ALBUMIN 4.6 GM/DL 2012 Unknown COMPREHENSIVE METABOLIC 87584 CHLORIDE 103 MMOL/L 02/11 Unknown COMPREHENSIVE METABOLIC 25254 BILI TOT 0.3 MG/DL 2012 Unknown COMPREHENSIVE METABOLIC 93811 ALK PHOS 53 U/L 2012 Unknown COMPREHENSIVE METABOLIC 51554 SODIUM 136 MMOL/L 02/11 Unknown COMPREHENSIVE METABOLIC 52524 CREATININE 1.16 MG/DL 01/23 Unknown COMPREHENSIVE METABOLIC 72679 CALCIUM 10.0 MG/DL 02/11 Unknown COMPREHENSIVE METABOLIC 28453 POTASSIUM 4.9 MMOL/L 02/11 Unknown COMPREHENSIVE METABOLIC 86514 PROT TOT 7.0 GM/DL 2012 Unknown COMPREHENSIVE METABOLIC 55899 Glucose 192 MG/DL 2012 Unknown COMPREHENSIVE METABOLIC 76466 BICARB 26 MMOL/L 2012 Unknown COMPREHENSIVE METABOLIC 99513 ANION GAP 7 MEQ/L 2012 Unknown GFR CALC 3966051 GFR AA >60 ML/MIN 02/11/2013 Unknown GFR CALC 7138183 GFR NON-AA >60 ML/MIN 02/11/2013 Unknown C-REACTIVE PROTEIN (CRP) QUANT 68463 CRP 2.7 MG/DL 02/11/2013 Unknown GFR CALC 3068319 GFR AA >60 ML/MIN 09/19/2012 Unknown GFR CALC 7717472 GFR NON-AA >60 ML/MIN 09/19/2012 Unknown HEMOGLOBIN A1C (GLYCOSYLATED) 2893000 A1C HPLC 50084-1 7.2 % 09/19/2012 Unknown COMPREHENSIVE METABOLIC 21710 AST 13 U/L 2011 Unknown COMPREHENSIVE METABOLIC 86663 ALT 17 IU/L 2011 Unknown COMPREHENSIVE METABOLIC 51876 BUN 25 MG/DL 2011 Unknown COMPREHENSIVE METABOLIC 85244 ALBUMIN 4.5 GM/DL 2011 Unknown COMPREHENSIVE METABOLIC 83529 CHLORIDE 104 MMOL/L 09/19 Unknown COMPREHENSIVE METABOLIC 53596 BILI TOT 0.3 MG/DL 2011 Unknown COMPREHENSIVE METABOLIC 87525 ALK PHOS 43 U/L 2011 Unknown COMPREHENSIVE METABOLIC 71716 SODIUM 139 MMOL/L 09/19 Unknown COMPREHENSIVE METABOLIC 35278 CREATININE 1.10 MG/DL 08/25 Unknown COMPREHENSIVE METABOLIC 94246 CALCIUM 9.8 MG/DL 2011 Unknown COMPREHENSIVE METABOLIC 66721 POTASSIUM 4.8 MMOL/L 09/19 Unknown COMPREHENSIVE METABOLIC 76188 PROT TOT 6.5 GM/DL 2011 Unknown COMPREHENSIVE METABOLIC 18344 Glucose 148 MG/DL 2011 Unknown COMPREHENSIVE METABOLIC 05178 BICARB 25 MMOL/L 2011 Unknown COMPREHENSIVE METABOLIC 67736 ANION GAP 10 MEQ/L 2011 Unknown LIPID GROUP 25461 HDL TEST 44 MG/DL 09/19/2012 Unknown LIPID GROUP 43051 TRIG 318 MG/DL 09/19/2012 Unknown LIPID GROUP 64183 TEST LDL 100 MG/DL 09/19/2012 Unknown LIPID GROUP 73151 CHOL 208 MG/DL 09/19/2012 Unknown LIPID GROUP 20666 RCHOL/HDL 4.73 RATIO 09/19/2012 Unknow n FREE T4 07292 FREE T4 0.87 NG/DL 05/06/2012 Unknown GLYCOSYLATED HEMOGLOBIN TEST 80516 A1C HPLC 08315-2 6.4 % 0 05/06/2012 Unknown LIPID GROUP 40785 HDL TEST 44 MG/DL 05/06/2012 Unknown LIPID GROUP 46044 TRIG 177 MG/DL 05/06/2012 Unknown LIPID GROUP 02432 TEST LDL 113 MG/DL 05/06/2012 Unknown LIPID GROUP 38684 CHOL 192 MG/DL 05/06/2012 Unknown LIPID GROUP 36513 RCHOL/HDL 4.36 RATIO 05/06/2012 Unknow n THYROID STIMULATING HORMONE 13955 TSH 1.151 uIU/ML 05/06/2012 Unknown COMPLETE BLOOD COUNT 96353 WBC 7.8 10e9/L 05/06/20 12 Unknown COMPLETE BLOOD COUNT 76950 RBC 4.31 10e12/L 2011 Unknown COMPLETE BLOOD COUNT 26373 HGB 12.8 g/dL 2 Unknown COMPLETE BLOOD COUNT 86902 HCT DET 39.1 % 2 Unknown COMPLETE BLOOD COUNT 12915 MCV 90.7 fL 2 Unknown COMPLETE BLOOD COUNT 71298 MCH 29.7 pg 2 Unknown COMPLETE BLOOD COUNT 95297 MCHC 32.7 g/dL 2 Unknown COMPLETE BLOOD COUNT 96020 PLT 207 10e9/L 05/06/20 12 Unknown COMPLETE BLOOD COUNT 17723 MPV 10.2 fL 2 Unknown COMPLETE BLOOD COUNT 39416 SUSIE % 74.2 % 2 Unknown COMPLETE BLOOD COUNT 79331 LY % 12.8 % 2 Unknown COMPLETE BLOOD COUNT 15502 MON % 11.0 % 2 Unknown COMPLETE BLOOD COUNT 68046 EOS % 1.7 % 2 Unknown COMPLETE BLOOD COUNT 40797 BASO % 0.3 % 2 Unknown COMPLETE BLOOD COUNT 47603 RDW 13.7 % 2 Unknown COMPLETE BLOOD COUNT 39396 ABS SUSIE 5.79 10e9/L 012 Unknown COMPLETE BLOOD COUNT 09235 ABS LYMPH 1.00 10e9/L 012 Unknown COMPLETE BLOOD COUNT 49311 ABS MONO 0.86 10e9/L 012 Unknown COMPLETE BLOOD COUNT 76716 ABS EOS 0.13 10e9/L 012 Unknown COMPLETE BLOOD COUNT 03357 ABS BASO 0.02 10e9/L 012 Unknown COMPLETE BLOOD COUNT 44433 RDW-SD 44.4 fL 2 Unknown COMPREHENSIVE METABOLIC 68349 AST 13 U/L 2011 Unknown COMPREHENSIVE METABOLIC 44581 ALT 14 IU/L 2011 Unknown COMPREHENSIVE METABOLIC 47736 BUN 17 MG/DL 2011 Unknown COMPREHENSIVE METABOLIC 40762 ALBUMIN 4.5 GM/DL 2011 Unknown COMPREHENSIVE METABOLIC 58106 CHLORIDE 101 MMOL/L 05/06 Unknown COMPREHENSIVE METABOLIC 89282 BILI TOT 0.5 MG/DL 2011 Unknown COMPREHENSIVE METABOLIC 99531 ALK PHOS 42 U/L 2011 Unknown COMPREHENSIVE METABOLIC 58358 SODIUM 141 MMOL/L 05/06 Unknown COMPREHENSIVE METABOLIC 66000 CREATININE 1.02 MG/DL 04/24 Unknown COMPREHENSIVE METABOLIC 07768 CALCIUM 9.7 MG/DL 2011 Unknown COMPREHENSIVE METABOLIC 89656 POTASSIUM 4.6 MMOL/L 05/06 Unknown COMPREHENSIVE METABOLIC 22085 PROT TOT 6.5 GM/DL 2011 Unknown COMPREHENSIVE METABOLIC 37064 Glucose 139 MG/DL 2011 Unknown COMPREHENSIVE METABOLIC 75354 BICARB 29 MMOL/L 2011 Unknown COMPREHENSIVE METABOLIC 01482 ANION GAP 11 MEQ/L 2011 Unknown GFR CALC 4176514 GFR AA >60 ML/MIN 05/06/2012 Unknown GFR CALC 3045786 GFR NON-AA 54.0L ML/MIN 05/06/2012 Unkno wn GLYCOSYLATED HEMOGLOBIN TEST 42421 A1C HPLC 31795-6 6.6 % 1 09/30/2010 Unknown FREE T4 61815 FREE T4 1.00 NG/DL 07/26/2011 Unknown LIPID GROUP 99956 HDL TEST 40 MG/DL 07/26/2011 Unknown LIPID GROUP 66850 TRIG 136 MG/DL 07/26/2011 Unknown LIPID GROUP 16035 TEST LDL 126 MG/DL 07/26/2011 Unknown LIPID GROUP 66407 CHOL 193 MG/DL 07/26/2011 Unknown LIPID GROUP 05093 RCHOL/HDL 4.83 RATIO 07/26/2011 Unknow n COMPREHENSIVE METABOLIC 93501 AST 15 U/L 2010 Unknown COMPREHENSIVE METABOLIC 24612 ALT 13 IU/L 2010 Unknown COMPREHENSIVE METABOLIC 36930 BUN 17 MG/DL 2010 Unknown COMPREHENSIVE METABOLIC 93077 ALBUMIN 4.4 GM/DL 2010 Unknown COMPREHENSIVE METABOLIC 23406 CHLORIDE 102 MMOL/L 07/26 Unknown COMPREHENSIVE METABOLIC 17859 BILI TOT 0.5 MG/DL 2010 Unknown COMPREHENSIVE METABOLIC 18223 ALK PHOS 54 U/L 2010 Unknown COMPREHENSIVE METABOLIC 28450 SODIUM 138 MMOL/L 07/26 Unknown COMPREHENSIVE METABOLIC 21755 CREATININE 0.95 MG/DL 10/2010 Unknown COMPREHENSIVE METABOLIC 22917 CALCIUM 9.3 MG/DL 2010 Unknown COMPREHENSIVE METABOLIC 43413 POTASSIUM 4.3 MMOL/L 07/26 Unknown COMPREHENSIVE METABOLIC 94628 PROT TOT 6.7 GM/DL 2010 Unknown COMPREHENSIVE METABOLIC 71653 Glucose 116 MG/DL 2010 Unknown COMPREHENSIVE METABOLIC 06001 BICARB 28 MMOL/L 2010 Unknown COMPREHENSIVE METABOLIC 09244 ANION GAP 8 MEQ/L 2010 Unknown PSA EQUIMOLAR JONATAN 49019 PSA EQ 1.01 NG/ML 1 Unknown COMPLETE BLOOD COUNT 34379 WBC 6.4 10e9/L 07/26/20 11 Unknown COMPLETE BLOOD COUNT 07612 RBC 4.43 10e12/L 2010 Unknown COMPLETE BLOOD COUNT 21986 HGB 13.2 g/dL 1 Unknown COMPLETE BLOOD COUNT 34915 HCT DET 39.3 % 1 Unknown COMPLETE BLOOD COUNT 72604 MCV 88.7 fL 1 Unknown COMPLETE BLOOD COUNT 03993 MCH 29.8 pg 1 Unknown COMPLETE BLOOD COUNT 18198 MCHC 33.6 g/dL 1 Unknown COMPLETE BLOOD COUNT 35760 PLT 226 10e9/L 07/26/20 11 Unknown COMPLETE BLOOD COUNT 28671 MPV 9.9 fL 1 Unknown COMPLETE BLOOD COUNT 40830 SUSIE % 65.4 % 1 Unknown COMPLETE BLOOD COUNT 52619 LY % 19.7 % 1 Unknown COMPLETE BLOOD COUNT 80824 MON % 10.8 % 1 Unknown COMPLETE BLOOD COUNT 51601 EOS % 3.6 % 1 Unknown COMPLETE BLOOD COUNT 58559 BASO % 0.5 % 1 Unknown COMPLETE BLOOD COUNT 08660 RDW 13.2 % 1 Unknown COMPLETE BLOOD COUNT 58701 ABS SUSIE 4.19 10e9/L 011 Unknown COMPLETE BLOOD COUNT 35631 ABS LYMPH 1.26 10e9/L 011 Unknown COMPLETE BLOOD COUNT 04276 ABS MONO 0.69 10e9/L 011 Unknown COMPLETE BLOOD COUNT 43290 ABS EOS 0.23 10e9/L 11/02/2 011 Unknown COMPLETE BLOOD COUNT 27666 ABS BASO 0.03 10e9/L 011 Unknown COMPLETE BLOOD COUNT 79500 RDW-SD 41.7 fL 1 Unknown THYROID STIMULATING HORMONE 07180 TSH 1.345 uIU/ML 07/26/2011 Unknown GFR CALC 6956780 GFR AA >60 ML/MIN 07/26/2011 Unknown GFR CALC 3115013 GFR NON-AA >60 ML/MIN 07/26/2011 Unknown BRAIN NATRIURETIC PEPTIDE(BNP) 48252 BRAIN PEP 23 pg/mL 01/19/2011 Unknown CANCEL 9444066 CANCEL FOOTNOTE 01/18/2011 Unknown TESTOSTERONE TOTAL 50198 TESTOS TO 138 NG/DL 12/19/2010 Unknown COMPLETE BLOOD COUNT 67116 WBC 8.4 10e9/L 12/08/19 11 Unknown COMPLETE BLOOD COUNT 73690 RBC 4.40 10e12/L 2010 Unknown COMPLETE BLOOD COUNT 68836 HGB 13.3 g/dL 1 Unknown COMPLETE BLOOD COUNT 18997 HCT DET 39.8 % 1 Unknown COMPLETE BLOOD COUNT 25582 MCV 90.5 fL 1 Unknown COMPLETE BLOOD COUNT 05350 MCH 30.2 pg 1 Unknown COMPLETE BLOOD COUNT 37169 MCHC 33.4 g/dL 1 Unknown COMPLETE BLOOD COUNT 62315 PLT 201 10e9/L 12/08/19 11 Unknown COMPLETE BLOOD COUNT 75490 MPV 10.6 fL 1 Unknown COMPLETE BLOOD COUNT 54996 SUSIE % 72.5 % 1 Unknown COMPLETE BLOOD COUNT 02870 LY % 14.8 % 1 Unknown COMPLETE BLOOD COUNT 00176 MON % 10.6 % 1 Unknown COMPLETE BLOOD COUNT 72754 EOS % 1.7 % 1 Unknown COMPLETE BLOOD COUNT 31711 BASO % 0.4 % 1 Unknown COMPLETE BLOOD COUNT 53092 RDW 13.7 % 1 Unknown COMPLETE BLOOD COUNT 37889 ABS SUSIE 6.09 10e9/L 011 Unknown COMPLETE BLOOD COUNT 18118 ABS LYMPH 1.24 10e9/L 011 Unknown COMPLETE BLOOD COUNT 40658 ABS MONO 0.89 10e9/L 03/16/2 011 Unknown COMPLETE BLOOD COUNT 22822 ABS EOS 0.14 10e9/L 011 Unknown COMPLETE BLOOD COUNT 89588 ABS BASO 0.03 10e9/L 011 Unknown COMPLETE BLOOD COUNT 68289 RDW-SD 44.0 fL 1 Unknown LIPID GROUP 50872 HDL TEST 40 MG/DL 12/07/2010 Unknown LIPID GROUP 00647 TRIG 383 MG/DL 12/07/2010 Unknown LIPID GROUP 96085 TEST LDL 82 MG/DL 12/07/2010 Unknown LIPID GROUP 49305 CHOL 199 MG/DL 12/07/2010 Unknown LIPID GROUP 98401 RCHOL/HDL 4.98 RATIO 12/07/2010 Unknow n GFR CALC 4082251 GFR AA >60 ML/MIN 12/07/2010 Unknown GFR CALC 5970517 GFR NON-AA >60 ML/MIN 12/07/2010 Unknown COMPREHENSIVE METABOLIC 32773 AST 29 U/L 2010 Unknown COMPREHENSIVE METABOLIC 58918 ALT 39 IU/L 2010 Unknown COMPREHENSIVE METABOLIC 91998 BUN 17 MG/DL 2010 Unknown COMPREHENSIVE METABOLIC 97363 ALBUMIN 4.9 GM/DL 2010 Unknown COMPREHENSIVE METABOLIC 43270 CHLORIDE 100 MMOL/L 12/07 Unknown COMPREHENSIVE METABOLIC 73230 BILI TOT 0.3 MG/DL 2010 Unknown COMPREHENSIVE METABOLIC 31541 ALK PHOS 53 U/L 2010 Unknown COMPREHENSIVE METABOLIC 55770 SODIUM 137 MMOL/L 12/07 Unknown COMPREHENSIVE METABOLIC 92371 CREATININE 0.98 MG/DL 11/22 Unknown COMPREHENSIVE METABOLIC 68204 CALCIUM 9.5 MG/DL 2010 Unknown COMPREHENSIVE METABOLIC 01788 POTASSIUM 4.3 MMOL/L 12/07 Unknown COMPREHENSIVE METABOLIC 75572 PROT TOT 6.6 GM/DL 2010 Unknown COMPREHENSIVE METABOLIC 42645 Glucose 176 MG/DL 2010 Unknown COMPREHENSIVE METABOLIC 44541 BICARB 28 MMOL/L 2010 Unknown COMPREHENSIVE METABOLIC 16387 ANION GAP 9 MEQ/L 2010 Unknown PSA EQUIMOLAR JONATAN 32153 PSA EQ 0.65 NG/ML 1 Unknown HEMOGLOBIN A1C (GLYCOSYLATED) 02504 A1C HPLC 85584-5 6.9 % 12/07/2010 Unknown Procedures Procedure Codes Date THER/PROPH/DIAG INJ SC/IM CPT-4: 48110 12/25/2019 METHYLPREDNISOLONE INJECTION CPT-4: J2930 12/25/2019 FLU VACC PRSV FREE INC ANTIG 65 AND OLDER CPT-4: 20181 08/07/2019 FLU VACC PRSV FREE INC ANTIG 65 AND OLDER CPT-4: 10151 08/07/2019 ADMIN INFLUENZA VIRUS VAC CPT-4: G0008 08/07/2019 THER/PROPH/DIAG INJ SC/IM CPT-4: 55422 07/14/2019 METHYLPREDNISOLONE INJECTION CPT-4: J2930 07/14/2019 ROUTINE VENIPUNCTURE CPT-4: 39882 06/17/2019 ASSAY THYROID STIM HORMONE CPT-4: 18292 06/17/2019 COMPREHEN METABOLIC PANEL CPT-4: 29065 06/17/2019 COMPLETE CBC W/AUTO DIFF WBC CPT-4: 49152 06/17/2019 ASSAY OF IRON CPT-4: 41820 06/17/2019 VITAMIN B-12 CPT-4: 61912 06/17/2019 RBC SED RATE AUTOMATED CPT-4: 18073 06/17/2019 THER/PROPH/DIAG INJ SC/IM CPT-4: 18600 06/10/2019 THER/PROPH/DIAG INJ SC/IM CPT-4: 74641 06/02/2019 THER/PROPH/DIAG INJ SC/IM CPT-4: 89409 05/27/2019 THER/PROPH/DIAG INJ SC/IM CPT-4: 30249 05/12/2019 ROUTINE VENIPUNCTURE CPT-4: 28899 05/08/2019 COMPREHEN METABOLIC PANEL CPT-4: 82227 05/08/2019 COMPLETE CBC W/AUTO DIFF WBC CPT-4: 17030 05/08/2019 A1C HPLC CPT-4: 66841 05/08/2019 VITAMIN D TOTAL (25 HYDROXY) CPT-4: 52448 05/08/2019 ASSAY OF IRON CPT-4: 02839 05/08/2019 ASSAY OF FERRITIN CPT-4: 09115 05/08/2019 VITAMIN B-12 CPT-4: 81014 05/08/2019 THER/PROPH/DIAG INJ SC/IM CPT-4: 77907 03/21/2019 METHYLPREDNISOLONE INJECTION CPT-4: J2930 03/21/2019 THER/PROPH/DIAG INJ SC/IM CPT-4: 41095 03/13/2019 METHYLPREDNISOLONE INJECTION CPT-4: J2930 03/13/2019 THER/PROPH/DIAG INJ SC/IM CPT-4: 58577 12/25/2018 METHYLPREDNISOLONE INJECTION CPT-4: J2930 12/25/2018 ROUTINE VENIPUNCTURE CPT-4: 36169 12/09/2018 ASSAY OF FREE THYROXINE CPT-4: 66378 12/09/2018 ASSAY THYROID STIM HORMONE CPT-4: 57007 12/09/2018 COMPREHEN METABOLIC PANEL CPT-4: 17740 12/09/2018 COMPLETE CBC W/AUTO DIFF WBC CPT-4: 84009 12/09/2018 LIPID PANEL CPT-4: 56049 12/09/2018 A1C HPLC CPT-4: 42135 12/09/2018 PRESCRIP TRANSMIT VIA ERX SY CPT-4: G8553 08/21/2018 PRESCRIP TRANSMIT VIA ERX SY CPT-4: G8553 08/07/2018 THER/PROPH/DIAG INJ SC/IM CPT-4: 70171 05/23/2018 METHYLPREDNISOLONE INJECTION CPT-4: J2930 05/23/2018 PRESCRIP TRANSMIT VIA ERX SY CPT-4: G8553 05/02/2018 THER/PROPH/DIAG INJ SC/IM CPT-4: 69397 04/29/2018 METHYLPREDNISOLONE INJECTION CPT-4: J2930 04/29/2018 DEXAMETHASONE SODIUM PHOS CPT-4: J1100 04/22/2018 THER/PROPH/DIAG INJ SC/IM CPT-4: 44093 04/22/2018 TRIAMCINOLONE ACET INJ NOS CPT-4: J3301 04/22/2018 PRESCRIP TRANSMIT VIA ERX SY CPT-4: G8553 04/22/2018 PRESCRIP TRANSMIT VIA ERX SY CPT-4: G8553 01/23/2018 URINALYSIS NONAUTO W/O SCOPE CPT-4: 49746 01/02/2018 URINE CULTURE/ COLONY COUNT CPT-4: 00046 01/02/2018 PRESCRIP TRANSMIT VIA ERX SY CPT-4: G8553 01/02/2018 PRESCRIP TRANSMIT VIA ERX SY CPT-4: G8553 12/28/2017 PRESCRIP TRANSMIT VIA ERX SY CPT-4: G8553 12/21/2017 CEFTRIAXONE SODIUM INJECTION CPT-4: J0696 12/17/2017 THER/PROPH/DIAG INJ SC/IM CPT-4: 95634 12/17/2017 THER/PROPH/DIAG INJ SC/IM CPT-4: 98139 12/17/2017 TRIAMCINOLONE ACET INJ NOS CPT-4: J3301 12/17/2017 PRESCRIP TRANSMIT VIA ERX SY CPT-4: G8553 12/17/2017 DRAIN/INJECT JOINT/BURSA CPT-4: 82646 12/11/2017 TRIAMCINOLONE ACET INJ NOS CPT-4: J3301 12/11/2017 DEXAMETHASONE SODIUM PHOS CPT-4: J1100 12/11/2017 DESTRUCT PREMALG LESION (Cryosurgery) CPT-4: 58631 PRESCRIP TRANSMIT VIA ERX SY CPT-4: G8553 10/17/2017 DEXAMETHASONE SODIUM PHOS CPT-4: J1100 08/02/2017 THER/PROPH/DIAG INJ SC/IM CPT-4: 14100 08/02/2017 TRIAMCINOLONE ACET INJ NOS CPT-4: J3301 08/02/2017 PRESCRIP TRANSMIT VIA ERX SY CPT-4: G8553 08/02/2017 PNEUMOCOCCAL VACC 23 OLIVIA IM CPT-4: 25835 07/24/2017 ADMIN PNEUMOCOCCAL VACCINE CPT-4: G0009 07/24/2017 ALBUTEROL NON-COMP UNIT CPT-4: J7613 07/02/2017 AIRWAY INHALATION TREATMENT CPT-4: 05850 07/02/2017 THER/PROPH/DIAG INJ SC/IM CPT-4: 70203 07/02/2017 METHYLPREDNISOLONE INJECTION CPT-4: J2930 07/02/2017 PRESCRIP TRANSMIT VIA ERX SY CPT-4: G8553 05/29/2017 ROUTINE VENIPUNCTURE CPT-4: 26662 04/17/2017 ASSAY OF IRON CPT-4: 44471 04/17/2017 VITAMIN B-12 CPT-4: 48549 04/17/2017 COMPREHEN METABOLIC PANEL CPT-4: 79795 04/17/2017 COMPLETE CBC W/AUTO DIFF WBC CPT-4: 91773 04/17/2017 ASSAY OF FERRITIN CPT-4: 90911 04/17/2017 ASSAY THYROID STIM HORMONE CPT-4: 47811 04/17/2017 A1C HPLC CPT-4: 63537 04/17/2017 DRAIN/INJECT JOINT/BURSA CPT-4: 05636 02/01/2017 TRIAMCINOLONE ACET INJ NOS CPT-4: J3301 02/01/2017 DEXAMETHASONE SODIUM PHOS CPT-4: J1100 02/01/2017 ROUTINE VENIPUNCTURE CPT-4: 11555 12/27/2016 COMPLETE CBC W/AUTO DIFF WBC CPT-4: 33847 12/27/2016 ROUTINE VENIPUNCTURE CPT-4: 05480 12/21/2016 COMPLETE CBC W/AUTO DIFF WBC CPT-4: 01526 12/21/2016 ROUTINE VENIPUNCTURE CPT-4: 21588 12/12/2016 COMPLETE CBC W/AUTO DIFF WBC CPT-4: 44662 12/12/2016 PRESCRIP TRANSMIT VIA ERX SY CPT-4: G8553 10/31/2016 PRESCRIP TRANSMIT VIA ERX SY CPT-4: G8553 10/03/2016 PRESCRIP TRANSMIT VIA ERX SY CPT-4: G8553 09/04/2016 DESTRUCT PREMALG LESION (Cryosurgery) CPT-4: 63425 DESTRUCT PREMALG LES 2-14 CPT-4: 58493 08/22/2016 PRESCRIP TRANSMIT VIA ERX SY CPT-4: G8553 08/10/2016 PRESCRIP TRANSMIT VIA ERX SY CPT-4: G8553 07/06/2016 FLU VACC PRSV FREE INC ANTIG 65 AND OLDER CPT-4: 36798 06/13/2016 PNEUMOCOCCAL VACC 13 OLIVIA IM CPT-4: 97776 06/13/2016 ADMIN INFLUENZA VIRUS VAC CPT-4: G0008 06/13/2016 ADMIN PNEUMOCOCCAL VACCINE CPT-4: G0009 06/13/2016 CERUM REMOVAL CPT-4: 94790 04/05/2016 PRESCRIP TRANSMIT VIA ERX SY CPT-4: G8553 04/03/2016 ROUTINE VENIPUNCTURE CPT-4: 41893 03/06/2016 ASSAY OF FREE THYROXINE CPT-4: 08311 03/06/2016 ASSAY THYROID STIM HORMONE CPT-4: 51029 03/06/2016 COMPREHEN METABOLIC PANEL CPT-4: 85345 03/06/2016 COMPLETE CBC W/AUTO DIFF WBC CPT-4: 21738 03/06/2016 LIPID PANEL CPT-4: 25502 03/06/2016 ASSAY OF PSA TOTAL CPT-4: 20681 03/06/2016 TESTOSTERONE TOTAL - MALE CPT-4: 88573 03/06/2016 A1C HPLC CPT-4: 43260 03/06/2016 ASSAY OF IRON CPT-4: 66807 03/06/2016 VITAMIN B-12 CPT-4: 60776 03/06/2016 INJ TENDON SHEATH/LIGAMENT CPT-4: 00840 02/17/2016 TRIAMCINOLONE ACET INJ NOS CPT-4: J3301 02/17/2016 DEXAMETHASONE SODIUM PHOS CPT-4: J1100 02/17/2016 PRESCRIP TRANSMIT VIA ERX SY CPT-4: G8553 01/31/2016 PRESCRIP TRANSMIT VIA ERX SY CPT-4: G8553 12/30/2015 PRESCRIP TRANSMIT VIA ERX SY CPT-4: G8553 12/06/2015 PRESCRIP TRANSMIT VIA ERX SY CPT-4: G8553 11/15/2015 PPPS, subseq visit CPT-4: G0439 10/05/2015 MICROALBUMIN QUANTITATIVE CPT-4: 12434 10/05/2015 PROTEIN/CREAT URINE WITH RATIO CPT-4: 06737|17571 6 ROUTINE VENIPUNCTURE CPT-4: 51414 07/01/2015 ASSAY OF FREE THYROXINE CPT-4: 49497 07/01/2015 ASSAY THYROID STIM HORMONE CPT-4: 09096 07/01/2015 COMPLETE CBC W/AUTO DIFF WBC CPT-4: 50081 07/01/2015 LIPID PANEL CPT-4: 19878 07/01/2015 ASSAY OF PSA TOTAL CPT-4: 17450 07/01/2015 AEROBIC WOUND CULTURE & STN CPT-4: 24496 06/28/2015 PRESCRIP TRANSMIT VIA ERX SY CPT-4: G8553 06/28/2015 AEROBIC WOUND CULTURE & STN CPT-4: 91059 06/03/2015 PRESCRIP TRANSMIT VIA ERX SY CPT-4: G8553 06/03/2015 ROUTINE VENIPUNCTURE CPT-4: 39922 06/01/2015 COMPREHEN METABOLIC PANEL CPT-4: 48717 06/01/2015 A1C HPLC CPT-4: 96319 06/01/2015 COMPREHEN METABOLIC PANEL CPT-4: 68372 02/25/2015 A1C HPLC CPT-4: 97814 02/25/2015 DESTRUCT PREMALG LESION (Cryosurgery) CPT-4: 76214 PROTEIN/CREAT URINE WITH RATIO CPT-4: 29453|82121 5 MICROALBUMIN QUANTITATIVE CPT-4: 69746 10/27/2014 INFLUENZA ASSAY W/OPTIC CPT-4: 36768 10/21/2014 PRESCRIP TRANSMIT VIA ERX SY CPT-4: G8553 10/06/2014 PRESCRIP TRANSMIT VIA ERX SY CPT-4: G8553 09/21/2014 PRESCRIP TRANSMIT VIA ERX SY CPT-4: G8553 09/02/2014 MICROALBUMIN QUANTITATIVE CPT-4: 85701 08/27/2014 PROTEIN/CREAT URINE WITH RATIO CPT-4: 69409|75267 4 PPPS, subseq visit CPT-4: G0439 08/10/2014 ROUTINE VENIPUNCTURE CPT-4: 66357 08/05/2014 ASSAY OF FREE THYROXINE CPT-4: 87448 08/05/2014 ASSAY THYROID STIM HORMONE CPT-4: 34751 08/05/2014 COMPREHEN METABOLIC PANEL CPT-4: 30943 08/05/2014 COMPLETE CBC W/AUTO DIFF WBC CPT-4: 26154 08/05/2014 LIPID PANEL CPT-4: 97738 08/05/2014 A1C HPLC CPT-4: 59718 08/05/2014 FLUZONE, 5ML (Medicare) CPT-4: Q2038 08/05/2014 ADMIN INFLUENZA VIRUS VAC CPT-4: G0008 08/05/2014 METHYLPREDNISOLONE 40 MG INJ CPT-4: J1030 12/16/2013 TRIAMCINOLONE ACET INJ NOS CPT-4: J3301 12/16/2013 DRAIN/INJECT JOINT/BURSA CPT-4: 00275 12/16/2013 PRESCRIP TRANSMIT VIA ERX SY CPT-4: G8553 10/09/2013 THER/PROPH/DIAG INJ SC/IM CPT-4: 16366 09/18/2013 METHYLPREDNISOLONE 40 MG INJ CPT-4: J1030 09/18/2013 TRIAMCINOLONE ACET INJ NOS CPT-4: J3301 09/18/2013 PRESCRIP TRANSMIT VIA ERX SY CPT-4: G8553 09/18/2013 PRESCRIP TRANSMIT VIA ERX SY CPT-4: G8553 08/13/2013 ROUTINE VENIPUNCTURE CPT-4: 72377 06/25/2013 ASSAY OF FREE THYROXINE CPT-4: 35074 06/25/2013 ASSAY THYROID STIM HORMONE CPT-4: 59070 06/25/2013 COMPREHEN METABOLIC PANEL CPT-4: 42298 06/25/2013 COMPLETE CBC W/AUTO DIFF WBC CPT-4: 84082 06/25/2013 LIPID PANEL CPT-4: 42021 06/25/2013 A1C GLYCOSYLATED HEMOGLOBIN TEST CPT-4: 78147 013 ROUTINE VENIPUNCTURE CPT-4: 69038 04/09/2013 COMPLETE CBC W/AUTO DIFF WBC CPT-4: 26968 04/09/2013 MYCOPLASMA ANTIBODY, IFA CPT-4: 70166T2 04/09/2013 ROUTINE VENIPUNCTURE CPT-4: 83440 02/11/2013 ASSAY OF FREE THYROXINE CPT-4: 27306 02/11/2013 ASSAY THYROID STIM HORMONE CPT-4: 65376 02/11/2013 COMPREHEN METABOLIC PANEL CPT-4: 86901 02/11/2013 COMPLETE CBC W/AUTO DIFF WBC CPT-4: 63677 02/11/2013 VITAMIN B 12 FOLIC ACID CPT-4: 12086|07064 02/11/2013 C-REACTIVE PROTEIN CPT-4: 46178 02/11/2013 A1C GLYCOSYLATED HEMOGLOBIN TEST CPT-4: 44391 013 ASSAY OF BLOOD/URIC ACID CPT-4: 53491 02/11/2013 CEFTRIAXONE SODIUM INJECTION CPT-4: J0696 01/31/2013 THER/PROPH/DIAG INJ SC/IM CPT-4: 73879 01/31/2013 THER/PROPH/DIAG INJ SC/IM CPT-4: 90838 01/31/2013 METHYLPREDNISOLONE 40 MG INJ CPT-4: J1030 01/31/2013 TRIAMCINOLONE ACET INJ NOS CPT-4: J3301 01/31/2013 ROUTINE VENIPUNCTURE CPT-4: 49440 09/19/2012 COMPREHEN METABOLIC PANEL CPT-4: 36281 09/19/2012 LIPID PANEL CPT-4: 27866 09/19/2012 A1C GLYCOSYLATED HEMOGLOBIN TEST CPT-4: 07753 012 PNEUMOCOCCAL VACC 23 OLIVIA IM CPT-4: 83997 07/10/2012 FLUZONE, 5ML (Medicare) CPT-4: Q2038 07/10/2012 ADMIN INFLUENZA VIRUS VAC CPT-4: G0008 07/10/2012 ADMIN PNEUMOCOCCAL VACCINE CPT-4: G0009 07/10/2012 ROUTINE VENIPUNCTURE CPT-4: 64683 05/06/2012 ASSAY OF FREE THYROXINE CPT-4: 72151 05/06/2012 ASSAY THYROID STIM HORMONE CPT-4: 81981 05/06/2012 COMPREHEN METABOLIC PANEL CPT-4: 66329 05/06/2012 COMPLETE CBC W/AUTO DIFF WBC CPT-4: 89311 05/06/2012 LIPID PANEL CPT-4: 52436 05/06/2012 A1C GLYCOSYLATED HEMOGLOBIN TEST CPT-4: 58376 012 IMMUNIZATION ADMIN CPT-4: 67460 02/05/2012 FLUZONE, 5ML (Medicare) CPT-4: Q2038 08/10/2011 ADMIN INFLUENZA VIRUS VAC CPT-4: G0008 08/10/2011 ROUTINE VENIPUNCTURE CPT-4: 54968 07/26/2011 ASSAY OF FREE THYROXINE CPT-4: 55637 07/26/2011 ASSAY THYROID STIM HORMONE CPT-4: 03232 07/26/2011 COMPREHEN METABOLIC PANEL CPT-4: 67027 07/26/2011 COMPLETE CBC W/AUTO DIFF WBC CPT-4: 42582 07/26/2011 LIPID PANEL CPT-4: 21908 07/26/2011 A1C GLYCOSYLATED HEMOGLOBIN TEST CPT-4: 24092 011 ASSAY OF PSA TOTAL CPT-4: 87220 07/26/2011 ROUTINE VENIPUNCTURE CPT-4: 98965 01/19/2011 ASSAY OF NATRIURETIC PEPTIDE CPT-4: 99644 01/19/2011 THER/PROPH/DIAG INJ SC/IM CPT-4: 22261 01/19/2011 CEFTRIAXONE SODIUM INJECTION CPT-4: J0696 01/19/2011 METHYLPREDNISOLONE INJECTION CPT-4: J2930 01/19/2011 THER/PROPH/DIAG INJ SC/IM CPT-4: 88182 01/19/2011 THER/PROPH/DIAG INJ SC/IM CPT-4: 71180 01/18/2011 CEFTRIAXONE SODIUM INJECTION CPT-4: J0696 01/18/2011 METHYLPREDNISOLONE INJECTION CPT-4: J2930 01/18/2011 THER/PROPH/DIAG INJ SC/IM CPT-4: 62698 01/18/2011 THER/PROPH/DIAG INJ SC/IM CPT-4: 78807 12/21/2010 TESTOSTERONE CYPIONAT 100 MG CPT-4: J1070 12/21/2010 ROUTINE VENIPUNCTURE CPT-4: 48194 12/19/2010 TESTOSTERONE TOTAL - MALE CPT-4: 58073 12/19/2010 ROUTINE VENIPUNCTURE CPT-4: 21302 12/07/2010 COMPLETE CBC W/AUTO DIFF WBC CPT-4: 80543 12/07/2010 COMPREHEN METABOLIC PANEL CPT-4: 06843 12/07/2010 LIPID PANEL CPT-4: 44646 12/07/2010 A1C GLYCOSYLATED HEMOGLOBIN TEST CPT-4: 62931 011 ASSAY OF PSA TOTAL CPT-4: 17431 12/07/2010 ROUTINE VENIPUNCTURE CPT-4: 19795 04/05/2010 PRESCRIP TRANSMIT VIA ERX SY CPT-4: G8553 04/05/2010 ROUTINE VENIPUNCTURE CPT-4: 26284 01/13/2010 METHYLPREDNISOLONE INJECTION CPT-4: J2930 12/22/2009 THER/PROPH/DIAG INJ SC/IM CPT-4: 02215 12/22/2009 THER/PROPH/DIAG INJ SC/IM CPT-4: 68461 12/22/2009 CEFTRIAXONE SODIUM INJECTION CPT-4: J0696 12/22/2009 ROUTINE VENIPUNCTURE CPT-4: 27930 12/22/2009 COMPLETE CBC W/AUTO DIFF WBC CPT-4: 96975 12/22/2009 RBC SED RATE, AUTOMATED CPT-4: 18854 12/22/2009 RPR FE/E/EN/L/M 20.1-30.0 CM CPT-4: 41599 12/22/2009 EKG FOR INITIAL PREVENT EXAM CPT-4: G0403 12/22/2009 THER/PROPH/DIAG INJ SC/IM CPT-4: 17227 12/16/2009 KETOROLAC TROMETHAMINE INJ CPT-4: J1885 12/16/2009 [...] 1: 126/68 Code: 8480-6 BMI: 30.2 Code: 08368-2 Heart Rate 1: 92 bpm Height: 6' Respiratory Rate: 22 bpm SpO2: 94% Tempera ture: 36.9 (C) / 98.5 (F) Weight: 223 lbs 08/21/2018 Blood Pressure 1: 160/70 Code: 8480-6 Heart Rate 1: 79 bpm Respiratory Rate: 20 bpm SpO2: 94% Temperature: 36.7 (C) / 98.0 (F) We ight: 226 lbs 8 oz 08/07/2018 Blood Pressure 1: 138/70 Code: 8480-6 BMI: 30.1 Code: 47797-3 Heart Rate 1: 80 bpm Height: 6' Respiratory Rate: 20 bpm SpO2: 94% Tempera ture: 36.9 (C) / 98.5 (F) Weight: 222 lbs 05/23/2018 Blood Pressure 1: 148/66 Code: 8480-6 BMI: 30.0 Code: 44277-0 Heart Rate 1: 96 bpm Height: 6' Respiratory Rate: 22 bpm SpO2: 94% Tempera ture: 37.3 (C) / 99.1 (F) Weight: 221 lbs 05/02/2018 Blood Pressure 1: 146/78 Code: 8480-6 BMI: 29.6 Code: 21176-9 Heart Rate 1: 78 bpm Height: 6' Respiratory Rate: 26 bpm SpO2: 94% Tempera ture: 35.7 (C) / 96.2 (F) Weight: 218 lbs 04/29/2018 Blood Pressure 1: 142/62 Code: 8480-6 BMI: 28.6 Code: 78121-0 Heart Rate 1: 82 bpm Height: 6' Respiratory Rate: 22 bpm SpO2: 98% Tempera ture: 36.4 (C) / 97.6 (F) Weight: 211 lbs 04/22/2018 Blood Pressure 1: 126/64 Code: 8480-6 BMI: 30.0 Code: 90598-0 Heart Rate 1: 96 bpm Height: 6' [...] 1: 144/78 Code: 8480-6 BMI: 30.7 Code: 40251-1 Heart Rate 1: 92 bpm Height: 6' Respiratory Rate: 28 bpm SpO2: 94% Tempera ture: 36.9 (C) / 98.4 (F) Weight: 226 lbs 12/28/2017 Blood Pressure 1: 136/80 Code: 8480-6 Heart Rate 1: 92 bpm Respiratory Rate: 28 bpm SpO2: 94% Temperature: 36.7 (C) / 98.1 (F) 12/21/2017 Blood Pressure 1: 146/84 Code: 8480-6 BMI: 31.1 Code: 65264-6 Heart Rate 1: 84 bpm Height: 6' [...] 1: 142/64 Code: 8480-6 BMI: 31.3 Code: 96248-0 Heart Rate 1: 98 bpm Height: 6' Respiratory Rate: 24 bpm SpO2: 94% Tempera ture: 36.4 (C) / 97.6 (F) Weight: 231 lbs 10/17/2017 Blood Pressure 1: 140/68 Code: 8480-6 BMI: 31.7 Code: 91362-4 Heart Rate 1: 88 bpm Height: 6' Respiratory Rate: 20 bpm SpO2: 94% Tempera ture: 36.8 (C) / 98.3 (F) Weight: 234 lbs 08/02/2017 Blood Pressure 1: 142/80 Code: 8480-6 BMI: 31.1 Code: 70144-4 Heart Rate 1: 86 bpm Height: 6' Respiratory Rate: 20 bpm SpO2: 90% Tempera ture: 35.9 (C) / 96.7 (F) Weight: 229 lbs 07/02/2017 Blood Pressure 1: 146/64 Code: 8480-6 BMI: 29.6 Code: 32786-2 Heart Rate 1: 96 bpm Height: 6' Respiratory Rate: 20 bpm Temperature: 36 .4 (C) / 97.6 (F) Weight: 218 lbs 05/29/2017 Blood Pressure 1: 152/68 Code: 8480-6 BMI: 31.5 Code: 10622-8 Heart Rate 1: 100 bpm Height: 6' Respiratory Rate: 20 bpm SpO2: 92% Tempera ture: 36.9 (C) / 98.4 (F) Weight: 232 lbs 02/01/2017 Blood Pressure 1: 146/64 Code: 8480-6 BMI: 30.7 Code: 39750-2 Heart Rate 1: 76 bpm Height: 6' Respiratory Rate: 20 bpm SpO2: 95% Tempera ture: 36.8 (C) / 98.2 (F) Weight: 226 lbs 01/29/2017 Blood Pressure 1: 146/78 Code: 8480-6 Heart Rate 1: 84 bpm Respiratory Rate: 20 bpm SpO2: 96% Temperature: 36.1 (C) / 97.0 (F) We ight: 226 lbs 12/21/2016 Blood Pressure 1: 126/60 Code: 8480-6 BMI: 30.8 Code: 41223-3 Heart Rate 1: 88 bpm Height: 6' Respiratory Rate: 22 bpm SpO2: 94% Tempera ture: 36.7 (C) / 98.0 (F) Weight: 227 lbs 12/14/2016 Blood Pressure 1: 126/70 Code: 8480-6 BMI: 29.8 Code: 95925-9 Heart Rate 1: 92 bpm Height: 6' Respiratory Rate: 22 bpm SpO2: 93% Tempera ture: 36.8 (C) / 98.2 (F) Weight: 220 lbs 11/14/2016 Blood Pressure 1: 128/62 Code: 8480-6 Heart Rate 1: 100 bpm Respiratory Rate: 20 bpm SpO2: 96% Temperature: 36.6 (C) / 97.8 (F) We ight: 220 lbs 10/31/2016 Blood Pressure 1: 142/60 Code: 8480-6 BMI: 30.1 Code: 90939-8 Heart Rate 1: 112 bpm Height: 6' Respiratory Rate: 24 bpm SpO2: 93% Tempera ture: 37.1 (C) / 98.7 (F) Weight: 222 lbs 10/03/2016 Blood Pressure 1: 136/78 Code: 8480-6 Heart Rate 1: 106 bpm Respiratory Rate: 24 bpm SpO2: 93% Temperature: 36.6 (C) / 97.8 (F) We ight: 221 lbs 09/04/2016 Blood Pressure 1: 112/44 Code: 8480-6 BMI: 30.1 Code: 98340-3 Heart Rate 1: 90 bpm Height: 6' Respiratory Rate: 20 bpm SpO2: 93% Tempera ture: 36.6 (C) / 97.9 (F) Weight: 222 lbs 08/22/2016 Blood Pressure 1: 142/68 Code: 8480-6 BMI: 30.4 Code: 74894-2 Heart Rate 1: 100 bpm Height: 6' Respiratory Rate: 24 bpm SpO2: 93% Tempera ture: 36.7 (C) / 98.1 (F) Weight: 224 lbs 08/10/2016 Blood Pressure 1: 134/60 Code: 8480-6 BMI: 30.2 Code: 89446-1 Heart Rate 1: 76 bpm Height: 6' [...] 1: 122/72 Code: 8480-6 BMI: 30.7 Code: 98749-7 Heart Rate 1: 96 bpm Height: 6' Respiratory Rate: 22 bpm SpO2: 96% Tempera ture: 35.9 (C) / 96.7 (F) Weight: 226 lbs 04/03/2016 Blood Pressure 1: 146/64 Code: 8480-6 BMI: 30.8 Code: 74951-2 Heart Rate 1: 76 bpm Height: 6' Respiratory Rate: 20 bpm Temperature: 36 .8 (C) / 98.2 (F) Weight: 227 lbs 03/02/2016 Blood Pressure 1: 148/60 Code: 8480-6 BMI: 31.1 Code: 99148-1 Heart Rate 1: 80 bpm Height: 6' Respiratory Rate: 22 bpm SpO2: 94% Tempera ture: 36.6 (C) / 97.8 (F) Weight: 229 lbs 02/17/2016 Blood Pressure 1: 132/60 Code: 8480-6 BMI: 31.3 Code: 53098-4 Heart Rate 1: 80 bpm Height: 6' Respiratory Rate: 20 bpm Temperature: 36 .9 (C) / 98.4 (F) Weight: 231 lbs 02/14/2016 Blood Pressure 1: 126/70 Code: 8480-6 BMI: 31.3 Code: 49843-7 Heart Rate 1: 80 bpm Height: 6' Respiratory Rate: 24 bpm SpO2: 95% Tempera ture: 36.9 (C) / 98.5 (F) Weight: 231 lbs 01/31/2016 Blood Pressure 1: 136/60 Code: 8480-6 Heart Rate 1: 76 bpm Respiratory Rate: 22 bpm Temperature: 37.0 (C) / 98.6 (F) Weight: 230 lbs 12/30/2015 Blood Pressure 1: 128/58 Code: 8480-6 BMI: 31.2 Code: 79287-3 Heart Rate 1: 80 bpm Height: 6' Respiratory Rate: 20 bpm Temperature: 36 .8 (C) / 98.2 (F) Weight: 230 lbs 12/16/2015 Blood Pressure 1: 122/60 Code: 8480-6 BMI: 32.0 Code: 43330-8 Heart Rate 1: 84 bpm Height: 6' Respiratory Rate: 24 bpm Temperature: 37 .1 (C) / 98.7 (F) Weight: 236 lbs 12/06/2015 Blood Pressure 1: 162/74 Code: 8480-6 BMI: 32.5 Code: 11165-5 Heart Rate 1: 90 bpm Height: 6' Respiratory Rate: 20 bpm SpO2: 96% Tempera ture: 36.4 (C) / 97.6 (F) Weight: 240 lbs 11/15/2015 Blood Pressure 1: 166/80 Code: 8480-6 BMI: 32.4 Code: 21819-5 Heart Rate 1: 92 bpm Height: 6' Respiratory Rate: 28 bpm Temperature: 36 .5 (C) / 97.7 (F) Weight: 239 lbs 10/05/2015 Blood Pressure 1: 146/76 Code: 8480-6 BMI: 32.4 Code: 86900-9 Heart Rate 1: 88 bpm Height: 6' Respiratory Rate: 28 bpm Temperature: 37 .1 (C) / 98.7 (F) Weight: 239 lbs 07/22/2015 Blood Pressure 1: 144/68 Code: 8480-6 BMI: 31.9 Code: 67872-4 Heart Rate 1: 88 bpm Height: 6' [...] 1: 142/64 Code: 8480-6 BMI: 32.1 Code: 05985-7 Heart Rate 1: 80 bpm Height: 6' Respiratory Rate: 18 bpm Temperature: 36 .4 (C) / 97.6 (F) Weight: 237 lbs 06/07/2015 Blood Pressure 1: 164/58 Code: 8480-6 BMI: 32.1 Code: 46360-0 Heart Rate 1: 88 bpm Height: 6' Respiratory Rate: 20 bpm Temperature: 36 .6 (C) / 97.9 (F) Weight: 237 lbs 06/03/2015 Blood Pressure 1: 152/64 Code: 8480-6 BMI: 32.1 Code: 76327-5 Heart Rate 1: 96 bpm Height: 6' Respiratory Rate: 20 bpm Temperature: 37 .4 (C) / 99.3 (F) Weight: 237 lbs 06/01/2015 Blood Pressure 1: 136/70 Code: 8480-6 BMI: 31.7 Code: 58374-7 Heart Rate 1: 72 bpm Height: 6' Respiratory Rate: 22 bpm SpO2: 94% Tempera ture: 36.6 (C) / 97.9 (F) Weight: 234 lbs 02/25/2015 Blood Pressure 1: 146/80 Code: 8480-6 BMI: 32.4 Code: 47324-5 Heart Rate 1: 84 bpm Height: 6' Respiratory Rate: 28 bpm Temperature: 36 .7 (C) / 98.0 (F) Weight: 239 lbs 10/27/2014 Blood Pressure 1: 168/70 Code: 8480-6 BMI: 32.0 Code: 35407-2 Heart Rate 1: 80 bpm Height: 6' Respiratory Rate: 30 bpm SpO2: 98% Tempera ture: 36.4 (C) / 97.6 (F) Weight: 236 lbs 10/21/2014 Blood Pressure 1: 152/58 Code: 8480-6 BMI: 32.1 Code: 77289-7 Heart Rate 1: 78 bpm Height: 6' Respiratory Rate: 20 bpm Temperature: 37 .8 (C) / 100.1 (F) Weight: 237 lbs 10/06/2014 Blood Pressure 1: 132/64 Code: 8480-6 BMI: 32.5 Code: 41825-2 Heart Rate 1: 88 bpm Height: 6' Respiratory Rate: 32 bpm SpO2: 94% Tempera ture: 36.8 (C) / 98.2 (F) Weight: 240 lbs 09/21/2014 Blood Pressure 1: 134/68 Code: 8480-6 BMI: 32.4 Code: 15883-0 Heart Rate 1: 96 bpm Height: 6' Respiratory Rate: 30 bpm Temperature: 36 .7 (C) / 98.1 (F) Weight: 239 lbs 09/08/2014 Blood Pressure 1: 128/74 Code: 8480-6 BMI: 32.4 Code: 94706-4 Heart Rate 1: 82 bpm Height: 6' Respiratory Rate: 28 bpm SpO2: 93% Tempera ture: 36.6 (C) / 97.8 (F) Weight: 239 lbs 09/02/2014 Blood Pressure 1: 164/78 Code: 8480-6 Heart Rate 1: 86 bpm Respiratory Rate: 22 bpm SpO2: 96% Temperature: 36.1 (C) / 97.0 (F) We ight: 239 lbs 08/10/2014 Blood Pressure 1: 152/60 Code: 8480-6 BMI: 32.8 Code: 06772-8 Heart Rate 1: 80 bpm Height: 6' [...] 1: 146/80 Code: 8480-6 BMI: 33.9 Code: 75562-3 Heart Rate 1: 80 bpm Height: 6' [...] 1: 148/78 Code: 8480-6 BMI: 30.5 Code: 62799-5 Heart Rate 1: 84 bpm Height: 6' Respiratory Rate: 28 bpm SpO2: 97% Tempera ture: 36.4 (C) / 97.5 (F) Weight: 225 lbs 08/06/2013 Blood Pressure 1: 158/70 Code: 8480-6 Heart Rate 1: 110 bpm Respiratory Rate: 22 bpm SpO2: 88% Temperature: 39.7 (C) / 103.4 (F) W eight: 07/16/2013 Blood Pressure 1: 148/82 Code: 8480-6 BMI: 31.9 Code: 26804-5 Heart Rate 1: 80 bpm Height: 6' Respiratory Rate: 20 bpm Temperature: 36 .6 (C) / 97.9 (F) Weight: 235 lbs 04/09/2013 Blood Pressure 1: 142/78 Code: 8480-6 BMI: 31.5 Code: 48050-3 Heart Rate 1: 88 bpm Height: 6' Respiratory Rate: 32 bpm SpO2: 95% Tempera ture: 37.0 (C) / 98.6 (F) Weight: 232 lbs 02/11/2013 Blood Pressure 1: 146/70 Code: 8480-6 Heart Rate 1: 88 bpm Respiratory Rate: 20 bpm Temperature: 36.8 (C) / 98.3 (F) Weight: 230 lbs 01/31/2013 Blood Pressure 1: 128/70 Code: 8480-6 BMI: 31.6 Code: 00447-0 Heart Rate 1: 84 bpm Height: 6' Respiratory Rate: 24 bpm SpO2: 92% Tempera ture: 36.7 (C) / 98.0 (F) Weight: 233 lbs 01/20/2013 Blood Pressure 1: 148/64 Code: 8480-6 BMI: 31.6 Code: 91820-2 Heart Rate 1: 68 bpm Height: 6' Temperature: 36.1 (C) / 97.0 (F) Weight: 233 lbs 12/19/2012 Blood Pressure 1: 128/68 Code: 8480-6 BMI: 32.0 Code: 64469-7 Heart Rate 1: 64 bpm Height: 6' Temperature: 36.7 (C) / 98.0 (F) Weight: 236 lbs 10/21/2012 Blood Pressure 1: 142/64 Code: 8480-6 BMI: 30.9 Code: 65979-0 Heart Rate 1: 74 bpm Height: 6' Temperature: 36.2 (C) / 97.1 (F) Weight: 228 lbs 09/18/2012 Blood Pressure 1: 126/60 Code: 8480-6 BMI: 31.3 Code: 86337-6 Heart Rate 1: 88 bpm Height: 6' Respiratory Rate: 20 bpm Temperature: 36 .5 (C) / 97.7 (F) Weight: 231 lbs 08/28/2012 Blood Pressure 1: 132/68 Code: 8480-6 BMI: 31.5 Code: 05328-8 Heart Rate 1: 92 bpm Height: 6' Respiratory Rate: 30 bpm SpO2: 94% Tempera ture: 37.1 (C) / 98.7 (F) Weight: 232 lbs 07/10/2012 Blood Pressure 1: 118/70 Code: 8480-6 BMI: 30.5 Code: 72786-8 Heart Rate 1: 72 bpm Height: 6' Respiratory Rate: 24 bpm SpO2: 96% Tempera ture: 36.7 (C) / 98.0 (F) Weight: 225 lbs 05/09/2012 Blood Pressure 1: 124/68 Code: 8480-6 BMI: 29.8 Code: 30131-0 Heart Rate 1: 72 bpm Height: 6' Respiratory Rate: 20 bpm Temperature: 36 .8 (C) / 98.2 (F) Weight: 220 lbs 10/02/2011 Blood Pressure 1: 140/82 Code: 8480-6 BMI: 30.7 Code: 33592-2 Heart Rate 1: 68 bpm Height: 6' Temperature: 36.7 (C) / 98.0 (F) Weight: 226 lbs 08/07/2011 Blood Pressure 1: 122/68 Code: 8480-6 BMI: 30.5 Code: 68284-2 Heart Rate 1: 72 bpm Height: 6' [...] 1: 140/78 Code: 8480-6 BMI: 31.9 Code: 61262-5 Heart Rate 1: 84 bpm Height: 6' Temperature: 36.6 (C) / 97.8 (F) Weight: 235 lbs 12/22/2009 Blood Pressure 1: 140/74 Code: 8480-6 BMI: 31.9 Code: 32220-6 Heart Rate 1: 94 bpm Height: 6' SpO2: 92% Temperature: 35.7 (C) / 96.2 (F) Weight: 235 lbs 12/13/2009 Blood Pressure 1: 146/80 Code: 8480-6 BMI: 33.0 Code: 58974-7 Heart Rate 1: 86 bpm Height: 6' [...] shot follow up 05/08/2019 follow up 04/07/2019 [facility] dizziness 03/24/2019 dizziness 03/21/2019 sore throat 03/13/2019 Patient finished zit hromax last night and has one dose of prednisone left follow up 03/10/2019 ER fwup---patient cu rrently taking zithromax, prednisone and breathing treatments every two hours spasms/spasticity 02/26/2019 follow up 02/13/2019 follow up 01/14/2019 [facility] follow up 12/25/2018 cough 12/09/2018 here for [...] constantly with her. 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 follow up 05/29/2017 Discuss Low Back [...] nightly. Patient has just been discharged from [place] with Pneumonia. Currently on Levaquin once daily. [...] fwup follow up 03/13/2016 Patient here for [facility] on medication education for insulin use lab [...] 02/25/2015 3mo fwup follow up 10/27/2014 Hospital [facility] cough 10/21/2014 follow up 10/06/2014 follow up 09/21/2014 Hospital [facility] follow up 09/08/2014 Hospital [facility] cough 09/02/2014 well man exam (65+ years) 08/10/2014 lab draw 08/05/2014 flu shot follow up 05/05/2014 6wk fwup follow up 03/24/2014 2wk up shortness of breath 03/10/2014 shoulder pain 12/16/2013 Request back brace w hen working/lifting---chiropractor had recommended he get one to wear shortness of breath 10/09/2013 cough 09/18/2013 follow up 08/13/2013 Hospital [facility] cough 08/06/2013 follow up 07/16/2013 lab draw [...] 12/13/2009 Encounters Encounter Performer Location Codes Date ([id number]) OFFICE/OUTPATIENT VISIT EST Diagnosis: Chronic obstructive pulmonary disease with (acute) exacerbation[ICD10: J44.1] Lita BARAKAT [facility] CPT- 4: 73407 12/25/2019 ([id number]) OFFICE/OUTPATIENT VISIT EST Diagnosis: Noncompliance with diabetes treatment[ICD10: Z91.19] Diagnosis: Insomnia[ICD10: G47.00] Diagnosis: Pain in right knee[ICD10: M25.561] Lita Barakat [facility] CPT-4: 15866 12/22/2019 ([id number]) OFFICE/OUTPATIENT VISIT EST Diagnosis: Chronic respiratory failure with hypercapnia[ICD10: J96.12] Diagnosis: Chronic airway obstruction, not elsewhere classified[ICD10: J44.9] Diagnosis: Basal cell carcinoma, face[ICD10: C44.310] Lita ALYLINE Ashley BARAKAT 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 CPT-4: 11044 08/07/2019 ([id number]) OFFICE/OUTPATIENT VISIT EST Diagnosis: Chronic obstructive pulmonary disease with (acute) exacerbation[ICD10: J44.1] Autumn ALYLINE Ashley BARAKAT [facility] CPT- 4: 99852 07/14/2019 ([id number]) OFFICE/OUTPATIENT VISIT EST Diagnosis: Primary insomnia[ICD10: F51.01] Diagnosis: Dyspepsia and other specified disorders of function of stomach[ICD10: K31.89] Lita CRAWFORD Ashley BARAKAT [employer] CPT-4: 82063 07/01/2019 ([id number]) OFFICE/OUTPATIENT VISIT EST Diagnosis: Epigastric pain[ICD10: R10.13] Diagnosis: Nausea[ICD10: R11.0] Diagnosis: Weight loss[ICD10: R63.4] Lita AREVALO DO [facility] CPT-4: 96570 06/24/2019 ([id number]) OFFICE/OUTPATIENT VISIT EST Diagnosis: Chronic obstructive pulmonary disease, unspecified[ICD10: J44.9] Diagnosis: Chronic insomnia[ICD10: F51.04] Diagnosis: Anemia[ICD10: D64.9] Diagnosis: Diplopia[ICD10: H53.2] Diagnosis: [place][ICD10: F30.9] Lita BARAKAT DO [facility] CPT-4: 86676 06/17/2019 ([id number]) NURSE/OUTPATIENT VISIT EST Diagnosis: Vitamin B12 deficiency anemia, unspecified[ICD10: D51.9] Lita BARAKAT DO [facility] CPT-4: 60454 06/10/2019 ([id number]) NURSE/OUTPATIENT VISIT EST Diagnosis: Vitamin B12 deficiency anemia, unspecified[ICD10: D51.9] Lita BARAKAT DO [facility] CPT-4: 59775 06/02/2019 ([id number]) NURSE/OUTPATIENT VISIT EST Diagnosis: Vitamin B12 deficiency anemia, unspecified[ICD10: D51.9] Lita BARAKAT DO [facility] CPT-4: 86264 05/27/2019 ([id number]) NURSE/OUTPATIENT VISIT EST Diagnosis: Vitamin B12 deficiency anemia, unspecified[ICD10: D51.9] Lita BARAKAT DO [facility] CPT-4: 70682 05/12/2019 ([id number]) OFFICE/OUTPATIENT VISIT EST Diagnosis: Restless legs syndrome[ICD10: G25.81] Diagnosis: Primary insomnia[ICD10: F51.01] Diagnosis: Anemia, unspecified[ICD10: D64.9] Diagnosis: Type 2 diabetes mellitus with hyperglycemia[ICD10: E11.65] Diagnosis: Vitamin D deficiency, unspecified[ICD10: E55.9] Litacarol BARAKAT DO [facility] CPT-4: 73087 05/08/2019 ([id number]) OFFICE/OUTPATIENT VISIT EST Diagnosis: Pain in right knee[ICD10: M25.561] Diagnosis: Restless legs syndrome[ICD10: G25.81] Diagnosis: Insomnia, unspecified[ICD10: G47.00] Lita BARAKAT DO [facility] CPT-4: 60887 04/07/2019 ([id number]) NO CHARGE Diagnosis: Chronic obstructive pulmonary disease with (acute) exacerbation[ICD10: J44.1] Diagnosis: Dizziness and giddiness[ICD10: R42] Diagnosis: Generalized anxiety disorder[ICD10: F41.1] Autumn BARAKAT DO [facility] CPT-4: 06746 03/24/2019 ([id number]) OFFICE/OUTPATIENT VISIT EST Diagnosis: Chronic obstructive pulmonary disease with (acute) exacerbation[ICD10: J44.1] Diagnosis: Dizziness and giddiness[ICD10: R42] Autumn BARAKAT DO [facility] CPT-4: 55182 03/21/2019 ([id number]) OFFICE/OUTPATIENT VISIT EST Diagnosis: Candidal stomatitis[ICD10: B37.0] Lita BARAKAT [facility] CPT-4: 20357 03/13/2019 ([id number]) OFFICE/OUTPATIENT VISIT EST Diagnosis: Chronic obstructive pulmonary disease with acute lower respiratory infection[ICD10: J44.0] Diagnosis: Restless legs syndrome[ICD10: G25.81] Lita Archerelvabev TADEO MARC Ashley BARAKAT DO [facility] CPT-4: 31366 03/10/2019 ([id number]) OFFICE/OUTPATIENT VISIT EST Diagnosis: Restless legs syndrome[ICD10: G25.81] Lita Jasminelvabev TADEO MARC Ashley ARCHERNDBEV JOHNSON [facility] CPT-4: 60354 02/26/2019 ([id number]) OFFICE/OUTPATIENT VISIT EST Diagnosis: Primary insomnia[ICD10: F51.01] Diagnosis: Chronic obstructive pulmonary disease, unspecified[ICD10: J44.9] Lita Jasminbetty CRAWFORD Ashley BARAKAT DO [facility] CPT-4: 74615 02/13/2019 ([id number]) OFFICE/OUTPATIENT VISIT EST Diagnosis: Chronic obstructive pulmonary disease, unspecified[ICD10: J44.9] Diagnosis: Chronic respiratory failure with hypoxia[ICD10: J96.11] Diagnosis: Chronic respiratory failure with hypercapnia[ICD10: J96.12] Lita Jasminbetty HERRMANNLITA Ashley BARAKAT [facility] CPT-4: 59558 01/14/2019 ([id number]) OFFICE/OUTPATIENT VISIT EST Diagnosis: Chronic respiratory failure with hypoxia[ICD10: J96.11] Diagnosis: Patient's noncompliance with other medical treatment and regimen[ICD10: Z91.19] Diagnosis: Chronic obstructive pulmonary disease with (acute) exacerbation[ICD10: J44.1] Lita CRAWFORD DonovanFerdinand GASPER [facility] CPT- 4: 79809 12/25/2018 ([id number]) OFFICE/OUTPATIENT VISIT EST Diagnosis: Essential (primary) hypertension[ICD10: I10] Diagnosis: Type 2 diabetes mellitus with hyperglycemia[ICD10: E11.65] Diagnosis: Hypothyroidism, unspecified[ICD10: E03.9] Diagnosis: Hyperlipidemia, unspecified[ICD10: E78.5] Diagnosis: Acute recurrent maxillary sinusitis[ICD10: J01.01] Ines HERRMANNQUELINE Ashley BARAKAT [facility] CPT-4: 62348 12/09/2018 ([id number]) OFFICE/OUTPATIENT VISIT EST Diagnosis: Candidal stomatitis[ICD10: B37.0] Lita Segura DonovanFerdinand ARMIN [employer] [facility] CPT-4: 44555 12/05/2018 ([id number]) OFFICE/OUTPATIENT VISIT EST Diagnosis: Acute recurrent sinusitis, unspecified[ICD10: J01.91] Diagnosis: Pain in right knee[ICD10: M25.561] Lita GONZALES Ashley BARAKAT [employer] [facility] CPT-4: 38014 10/23/2018 ([id number]) OFFICE/OUTPATIENT VISIT EST Diagnosis: Restless legs syndrome[ICD10: G25.81] Diagnosis: Basal cell carcinoma of skin of scalp and neck[ICD10: C44.41] Lita CRAWFORD DonovanFerdinand GASPER [facility] CPT-4: 62698 08/21/2018 ([id number]) OFFICE/OUTPATIENT VISIT EST Diagnosis: Chronic obstructive pulmonary disease with acute lower respiratory infection[ICD10: J44.0] Diagnosis: Restless legs syndrome[ICD10: G25.81] Lita BARAKAT DO [facility] CPT-4: 41298 08/07/2018 ([id number]) OFFICE/OUTPATIENT VISIT EST Diagnosis: Chronic obstructive pulmonary disease with acute lower respiratory infection[ICD10: J44.0] Lita BARAKAT DO [facility] CPT-4: 59652 05/23/2018 ([id number]) OFFICE/OUTPATIENT VISIT EST Diagnosis: Candidal stomatitis[ICD10: B37.0] Lita BARAKAT DO [facility] CPT-4: 00596 05/02/2018 ([id number]) OFFICE/OUTPATIENT VISIT EST Diagnosis: Candidal stomatitis[ICD10: B37.0] Diagnosis: Other retention of urine[ICD10: R33.8] Diagnosis: Chronic obstructive pulmonary disease with acute lower respiratory infection[ICD10: J44.0] Autumn BARAKAT DO [facility] CPT-4: 23977 04/29/2018 ([id number]) OFFICE/OUTPATIENT VISIT EST Diagnosis: Chronic obstructive pulmonary disease with acute lower respiratory infection[ICD10: J44.0] Lita BARAKAT DO [facility] CPT-4: 06608 04/22/2018 ([id number]) OFFICE/OUTPATIENT VISIT EST Diagnosis: Unilateral primary osteoarthritis, right knee[ICD10: M17.11] Diagnosis: Squamous cell carcinoma of skin, unspecified[ICD10: C44.92] Lita BARAKAT DO 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 CPT-4: 66321 01/23/2018 ([id number]) OFFICE/OUTPATIENT VISIT EST Diagnosis: Urinary tract infection, site not specified[ICD10: N39.0] Diagnosis: Chronic obstructive pulmonary disease with acute lower respiratory infection[ICD10: J44.0] Lita BARAKAT DO [facility] CPT-4: 48060 01/02/2018 ([id number]) OFFICE/OUTPATIENT VISIT EST Diagnosis: Chronic obstructive pulmonary disease with (acute) exacerbation[ICD10: J44.1] Autumn BARAKAT DO [facility] CPT- 4: 59161 12/28/2017 ([id number]) OFFICE/OUTPATIENT VISIT EST Diagnosis: Acute bronchitis, unspecified[ICD10: J20.9] Autumn BARAKAT DO [facility] CPT-4: 58093 12/21/2017 ([id number]) OFFICE/OUTPATIENT VISIT EST Diagnosis: Chronic obstructive pulmonary disease with acute lower respiratory infection[ICD10: J44.0] Diagnosis: Pain in right knee[ICD10: M25.561] Autumn BARAKAT DO [facility] CPT-4: 49109 12/17/2017 ([id number]) OFFICE/OUTPATIENT VISIT EST Diagnosis: Laceration without foreign body of right hand, sequela[ICD10: S61.411S] Diagnosis: Restless legs syndrome[ICD10: G25.81] Lita BARAKAT DO [facility] CPT-4: 31391 10/17/2017 OFFICE/OUTPATIENT VISIT EST Diagnosis: Chronic obstructive pulmonary disease with acute lower respiratory infection[ICD10: J44.0] Autumn BARAKAT DO [facility] CPT-4: 68142 08/02/2017 ([id number]) OFFICE/OUTPATIENT VISIT EST Diagnosis: PNEUMOCOCCAL VACCINE[ICD10: Z23] Lita BARAKAT DO [facility] CPT-4: 60566 07/24/2017 OFFICE/OUTPATIENT VISIT EST Diagnosis: Chronic obstructive pulmonary disease with (acute) exacerbation[ICD10: J44.1] Autumn BARAKAT DO [facility] CPT- 4: 20788 07/02/2017 OFFICE/OUTPATIENT VISIT EST Diagnosis: Low back pain[ICD10: M54.5] Ruchi De Los Santos [facility] CPT-4: 10441 05/29/2017 ([id number]) OFFICE/OUTPATIENT VISIT EST Diagnosis: Essential (primary) hypertension[ICD10: I10] Diagnosis: Hypothyroidism, unspecified[ICD10: E03.9] Diagnosis: Dizziness and giddiness[ICD10: R42] Diagnosis: Other abnormality of red blood cells[ICD10: R71.8] Diagnosis: Contracture of muscle, unspecified site[ICD10: M62.40] Lita Jasminelvabev LITA DonovanFerdinand [facility] CPT-4: 25306 04/17/2017 OFFICE/OUTPATIENT VISIT EST Diagnosis: Pain in left shoulder[ICD10: M25.512] Ruchi Chanel TRAN DonovanFerdinand [facility] CPT-4: 49296 01/29/2017 ([id number]) OFFICE/OUTPATIENT VISIT EST Diagnosis: Anemia, unspecified[ICD10: D64.9] Lita Jasminbetty Segura DonovanFerdinand [facility] CPT-4: 43290 12/27/2016 ([id number]) OFFICE/OUTPATIENT VISIT EST Diagnosis: Other fatigue[ICD10: R53.83] Diagnosis: Other iron deficiency anemias[ICD10: D50.8] Lita Barakat LITA DonovanFerdinand [facility] CPT-4: 18324 12/21/2016 ([id number]) OFFICE/OUTPATIENT VISIT EST Diagnosis: Anemia, unspecified[ICD10: D64.9] Diagnosis: Other fatigue[ICD10: R53.83] Diagnosis: Restless legs syndrome[ICD10: G25.81] Lita Jasminbetty TRAN DonovanFerdinand [facility] CPT-4: 60673 12/14/2016 ([id number]) OFFICE/OUTPATIENT VISIT EST Diagnosis: Anemia, unspecified[ICD10: D64.9] Diagnosis: Other abnormality of red blood cells[ICD10: R71.8] Lita Funezbev LITA DonovanFerdinand [facility] CPT-4: 98871 12/12/2016 ([id number]) OFFICE/OUTPATIENT VISIT EST Diagnosis: Pneumonia, unspecified organism[ICD10: J18.9] Diagnosis: Restless legs syndrome[ICD10: G25.81] Magda HERRMANNONIEL MARC Ashley BARAKAT [facility] CPT-4: 54096 11/14/2016 ([id number]) OFFICE/OUTPATIENT VISIT EST Diagnosis: Candidal stomatitis[ICD10: B37.0] Lita Jasminelvabev BARAKAT [facility] CPT-4: 12206 10/31/2016 ([id number]) OFFICE/OUTPATIENT VISIT EST Diagnosis: Acute upper respiratory infection, unspecified[ICD10: J06.9] Diagnosis: Personal history of pneumonia (recurrent)[ICD10: Z87.01] Magda ALYLINE Ashley BARAKAT [facility] CPT-4: 93192 10/03/2016 ([id number]) OFFICE/OUTPATIENT VISIT EST Diagnosis: Restless legs syndrome[ICD10: G25.81] Diagnosis: Insomnia, unspecified[ICD10: G47.00] Magda ALY JESSICA Ashley [facility] CPT-4: 22730 09/04/2016 ([id number]) OFFICE/OUTPATIENT VISIT EST Diagnosis: Restless legs syndrome[ICD10: G25.81] Diagnosis: Primary insomnia[ICD10: F51.01] Lita ALYLINE Ashley BARAKAT [facility] CPT-4: 89162 08/10/2016 OFFICE/OUTPATIENT VISIT EST Diagnosis: Toxic gastroenteritis and colitis[ICD10: K52.1] Diagnosis: Dizziness and giddiness[ICD10: R42] Diagnosis: Headache[ICD10: R51] Diagnosis: Restless legs syndrome[ICD10: G25.81] Lita Jasminbetty PIEDRA MARC Ashley BARAKAT [facility] CPT-4: 65259 07/06/2016 ([id number]) OFFICE/OUTPATIENT VISIT EST Diagnosis: Chest pain, unspecified[ICD10: R07.9] Diagnosis: Dyspnea, unspecified[ICD10: R06.00] Magda HERRMANNTANA CONDE Ashley BARAKAT [facility] CPT-4: 68220 06/22/2016 ([id number]) OFFICE/OUTPATIENT VISIT EST 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] Diagnosis: PNEUMOCOCCAL VACCINE[ICD10: Z23] Diagnosis: FLU VACCINE[ICD10: Z23] Lita [facility] CPT-4: 31550 06/13/2016 ([id number]) OFFICE/OUTPATIENT VISIT EST Diagnosis: Chest pain, unspecified[ICD10: R07.9] Diagnosis: Other forms of dyspnea[ICD10: R06.09] Diagnosis: Shortness of breath[ICD10: R06.02] Diagnosis: Other fatigue[ICD10: R53.83] Magda BARAKAT [facility] CPT-4: 44491 06/01/2016 ([id number]) OFFICE/OUTPATIENT VISIT EST Diagnosis: Unspecified hearing loss, left ear[ICD10: H91.92] Diagnosis: Other specified disorders of Eustachian tube, left ear[ICD10: H69.82] Magda [facility] CPT-4: 28537 11/2015 ([id number]) OFFICE/OUTPATIENT VISIT EST Diagnosis: Impacted cerumen, bilateral[ICD10: H61.23] Diagnosis: DM W/O COMPLICATION TYPE I, 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: E10.9] Diagnosis: Generalized anxiety disorder[ICD10: F41.1] Lita [facility] CPT-4: 57603 04/03/2016 ([id number]) OFFICE/OUTPATIENT VISIT EST Diagnosis: 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] Lita [facility] CPT - 4: 98975 03/13/2016 ([id number]) OFFICE/OUTPATIENT VISIT EST Diagnosis: Type 2 diabetes mellitus with hyperglycemia[ICD10: E11.65] Diagnosis: Hyperlipidemia, unspecified[ICD10: E78.5] Diagnosis: Essential (primary) hypertension[ICD10: I10] Diagnosis: Chronic obstructive pulmonary disease, unspecified[ICD10: J44.9] Diagnosis: Testicular hypofunction[ICD10: E29.1] Diagnosis: Male erectile dysfunction, unspecified[ICD10: N52.9] Diagnosis: Anemia, unspecified[ICD10: D64.9] Lita HERRMANNQUELIN Daja [facility] CPT-4: 67401 03/06/2016 ([id number]) OFFICE/OUTPATIENT VISIT EST Diagnosis: Type 2 diabetes mellitus with hyperglycemia[ICD10: E11.65] Diagnosis: Hyperlipidemia, unspecified[ICD10: E78.5] Diagnosis: Chronic obstructive pulmonary disease, unspecified[ICD10: J44.9] Diagnosis: Male erectile dysfunction, unspecified[ICD10: N52.9] Lita BARAKAT [facility] CPT-4: 53278 03/02/2016 ([id number]) OFFICE/OUTPATIENT VISIT EST Diagnosis: Pain in right foot[ICD10: M79.671] Magda BARAKAT [facility] CPT-4: 35422 02/14/2016 OFFICE/OUTPATIENT VISIT EST Diagnosis: Generalized anxiety disorder[ICD10: F41.1] Lita BARAKAT [facility] CPT-4: 82259 01/31/2016 ([id number]) OFFICE/OUTPATIENT VISIT EST Diagnosis: Generalized anxiety disorder[ICD10: F41.1] Lita BARAKAT [facility] CPT-4: 26065 12/30/2015 ([id number]) OFFICE/OUTPATIENT VISIT EST Diagnosis: Localized swelling, mass and lump, neck[ICD10: R22.1] Lita BARAKAT [facility] CPT-4: 71724 12/16/2015 OFFICE/OUTPATIENT VISIT EST Diagnosis: Localized enlarged lymph nodes[ICD10: R59.0] Diagnosis: Otalgia, left ear[ICD10: H92.02] Stephanie BARAKAT [facility] CPT-4: 78903 12/06/2015 OFFICE/OUTPATIENT VISIT EST Diagnosis: Localized enlarged lymph nodes[ICD10: R59.0] Diagnosis: Squamous cell carcinoma of skin, unspecified[ICD10: C44.92] Diagnosis: Actinic keratosis[ICD10: L57.0] Stephanie BARAKAT DO [facility] CPT-4: 00778 11/15/2015 OFFICE/OUTPATIENT VISIT EST Diagnosis: Cellulitis of left lower limb[ICD10: L03.116] Diagnosis: Encounter for examination and observation for other specified reasons[ICD10: Z04.8] Diagnosis: Chronic obstructive pulmonary disease, unspecified[ICD10: J44.9] Stephanie BARAKAT DO [facility] CPT-4: 18705 07/22/2015 OFFICE/OUTPATIENT VISIT EST Diagnosis: Other specified joint disorders, left knee[ICD10: M25.862] Diagnosis: Cellulitis of left lower limb[ICD10: L03.116] Diagnosis: Other fatigue[ICD10: R53.83] Diagnosis: Hyperlipidemia, unspecified[ICD10: E78.5] Stephanie BARAKAT DO [facility] CPT-4: 14433 07/01/2015 OFFICE/OUTPATIENT VISIT EST Diagnosis: Pain in left knee[ICD10: M25.562] Diagnosis: Cellulitis of left lower limb[ICD10: L03.116] Diagnosis: Other specified joint disorders, left knee[ICD10: M25.862] Stephanie BARAKAT DO [facility] CPT-4: 47387 06/28/2015 OFFICE/OUTPATIENT VISIT EST Diagnosis: PREPATELLAR BURSITIS[ICD9: 726.65] Diagnosis: Cellulitis of knee, left[ICD9: 682.6] Stephanie BARAKAT [facility] CPT-4: 50351 06/09/2015 ([id number]) OFFICE/OUTPATIENT VISIT EST Diagnosis: PREPATELLAR BURSITIS[ICD9: 726.65] Diagnosis: Cellulitis of knee, left[ICD9: 682.6] Lita BARAKAT [facility] CPT-4: 60084 06/07/2015 OFFICE/OUTPATIENT VISIT EST Diagnosis: Cellulitis of knee, left[ICD9: 682.6] Stephanie BARAKAT DO [facility] CPT-4: 88264 06/03/2015 ([id number]) OFFICE/OUTPATIENT VISIT EST Diagnosis: DM W/O COMPLICATION TYPE II, UNCONTROLLED[ICD9: 250.02] Diagnosis: COPD[ICD9: 496] Lita BARAKAT DO [facility] CPT- 4: 53406 06/01/2015 ([id number]) OFFICE/OUTPATIENT VISIT EST Diagnosis: COPD[ICD9: 496] Diagnosis: DYSPNEA[ICD9: 786.09] Diagnosis: DM W/O COMPLICATION TYPE II, UNCONTROLLED[ICD9: 250.02] Diagnosis: Actinic keratosis[ICD9: 702.0] Lita BARAKAT [facility] CPT-4: 67910 02/25/2015 ([id number]) OFFICE/OUTPATIENT VISIT EST Diagnosis: ASTHMA NOS[ICD9: 493.90] Diagnosis: COPD[ICD9: 496] Diagnosis: DM W/O COMPLICATION TYPE II, UNCONTROLLED[ICD9: 250.02] Lita BARAKAT [employer] [facility] CPT-4: 28594 10/27/2014 OFFICE/OUTPATIENT VISIT EST Diagnosis: DYSPNEA[ICD9: 786.09] Diagnosis: COPD[ICD9: 496] Lita BARAKAT [facility] CPT- 4: 92919 10/06/2014 ([id number]) OFFICE/OUTPATIENT VISIT EST Diagnosis: PNEUMONIA, ORGANISM[ICD9: 486] Diagnosis: COPD[ICD9: 496] Diagnosis: DYSPNEA[ICD9: 786.09] Lita BARAKAT [employer] [facility] CPT-4: 30623 09/21/2014 OFFICE/OUTPATIENT VISIT EST Diagnosis: PNEUMONIA, ORGANISM[ICD9: 486] Diagnosis: DYSPNEA[ICD9: 786.09] Diagnosis: COUGH[ICD9: 786.2] Stephanie BARAKAT [employer] [facility] CPT-4: 16945 09/08/2014 OFFICE/OUTPATIENT VISIT EST Diagnosis: COPD with exacerbation[ICD9: 491.21] Diagnosis: COUGH[ICD9: 786.2] Diagnosis: DYSPNEA[ICD9: 786.09] Stephanie BARAKAT [employer] [facility] CPT-4: 63079 09/02/2014 ([id number]) OFFICE/OUTPATIENT VISIT EST Diagnosis: DM W/O COMPLICATION TYPE II, UNCONTROLLED[ICD9: 250.02] Lita BARAKAT [employer] [facility] CPT-4: 34202 08/27/2014 ([id number]) OFFICE/OUTPATIENT VISIT EST Diagnosis: DM W/O COMPLICATION TYPE II, UNCONTROLLED[ICD9: 250.02] Diagnosis: HYPERLIPIDEMIA NEC/NOS[ICD9: 272.4] Diagnosis: HYPERTENSION[ICD9: 401.9] Diagnosis: COPD[ICD9: 496] Diagnosis: FLU VACCINE[ICD10: Z23] Lita [facility] CPT-4: 86265 08/05/2014 ([id number]) OFFICE/OUTPATIENT VISIT EST Diagnosis: COPD[ICD9: 496] Diagnosis: Lumbar degenerative disc disease[ICD9: 722.52] Lita [facility] CPT-4: 83037 05/05/2014 OFFICE/OUTPATIENT VISIT EST Diagnosis: DYSPNEA[ICD9: 786.09] Diagnosis: COPD[ICD9: 496] Lita [facility] CPT- 4: 23427 03/24/2014 ([id number]) OFFICE/OUTPATIENT VISIT EST Diagnosis: COPD[ICD9: 496] Diagnosis: DYSPNEA[ICD9: 786.09] Lita [facility] CPT-4: 38315 03/10/2014 OFFICE/OUTPATIENT VISIT EST Diagnosis: Subacromial bursitis[ICD9: 726.19] Diagnosis: Chronic low back pain[ICD9: 724.2] Diagnosis: Lumbar degenerative disc disease[ICD9: 722.52] Lita [facility] CPT-4: 88833 12/16/2013 ([id number]) OFFICE/OUTPATIENT VISIT EST Diagnosis: PHARYNGITIS, ACUTE[ICD9: 462] Diagnosis: COPD[ICD9: 496] Lita [facility] CPT- 4: 65617 10/09/2013 OFFICE/OUTPATIENT VISIT EST Diagnosis: COPD[ICD9: 496] Diagnosis: Acute exacerbation of chronic obstructive pulmonary disease (COPD)[ICD9: 491.21] Ruchi Buchanan LITA [facility] CPT-4: 20120 09/18/2013 ([id number]) OFFICE/OUTPATIENT VISIT EST Diagnosis: PNEUMONIA, ORGANISM[ICD9: 486] Diagnosis: DM W/O COMPLICATION TYPE II[ICD9: 250.00] Lita Gasper [facility] CPT-4: 42113 08/13/2013 ([id number]) OFFICE/OUTPATIENT VISIT EST Diagnosis: DM W/O COMPLICATION TYPE II, UNCONTROLLED[ICD9: 250.02] Diagnosis: HYPERLIPIDEMIA NEC/NOS[ICD9: 272.4] Diagnosis: HYPERTENSION[ICD9: 401.9] Diagnosis: DYSPNEA[ICD9: 786.09] Diagnosis: Family history of CABG[ICD9: V17.49] Lita Ramirez [facility] CPT-4: 77085 07/16/2013 ([id number]) OFFICE/OUTPATIENT VISIT EST Diagnosis: DM W/O COMPLICATION TYPE II, UNCONTROLLED[ICD9: 250.02] Diagnosis: HYPERLIPIDEMIA NEC/NOS[ICD9: 272.4] Diagnosis: HYPERTENSION[ICD9: 401.9] Lita Ramirez [facility] CPT-4: 84555 06/25/2013 OFFICE/OUTPATIENT VISIT EST Diagnosis: COUGH[ICD9: 786.2] Diagnosis: COPD[ICD9: 496] Kimberly [facility]PT- [facility]: 49411 04/09/2013 ([id number]) OFFICE/OUTPATIENT VISIT EST Diagnosis: Muscle spasm[ICD9: 728.85] Diagnosis: ARTHRALGIA-MULTIPLE SITES[ICD9: 719.49] Lita Ramirez [facility] CPT-4: 97781 02/11/2013 OFFICE/OUTPATIENT VISIT EST Diagnosis: COPD with exacerbation[ICD9: 491.21] Diagnosis: BRONCHITIS, ACUTE[ICD9: 466.0] Ruchi Streeter [facility] CPT-4: 21650 01/31/2013 OFFICE/OUTPATIENT VISIT EST Diagnosis: COUGH[ICD9: 786.2] Diagnosis: PHARYNGITIS, ACUTE[ICD9: 462] Diagnosis: SINUSITIS, ACUTE[ICD9: 461.9] Lita Ramirez [facility] CPT-4: 19390 01/20/2013 OFFICE/OUTPATIENT VISIT EST Diagnosis: DIZZINESS/VERTIGO[ICD9: 780.4] Lita Streeter [facility] CPT-4: 90833 12/19/2012 OFFICE/OUTPATIENT VISIT EST Diagnosis: Skin lesion of left arm[ICD9: 709.9] Diagnosis: Otitis externa[ICD9: 380.10] Diagnosis: PHARYNGITIS, ACUTE[ICD9: 462] Lita [facility] CPT-4: 90172 10/21/2012 ([id number]) OFFICE/OUTPATIENT VISIT EST Diagnosis: DM W/O COMPLICATION TYPE II, UNCONTROLLED[ICD9: 250.02] Diagnosis: HYPERLIPIDEMIA NEC/NOS[ICD9: 272.4] Diagnosis: HYPERTENSION[ICD9: 401.9] [facility]: 52716 09/19/2012 ([id number]) OFFICE/OUTPATIENT VISIT EST Diagnosis: DM W/O COMPLICATION TYPE II, UNCONTROLLED[ICD9: 250.02] Diagnosis: HYPERLIPIDEMIA NEC/NOS[ICD9: 272.4] Diagnosis: COPD[ICD9: 496] [facility] CPT- [facility]: 46152 09/18/2012 ([id number]) OFFICE/OUTPATIENT VISIT EST Diagnosis: BRONCHITIS, ACUTE[ICD9: 466.0] Diagnosis: SINUSITIS, ACUTE[ICD9: 461.9] Lita [facility] CPT-4: 61865 08/28/2012 ([id number]) OFFICE/OUTPATIENT VISIT EST Diagnosis: COPD[ICD9: 496] Diagnosis: DYSPNEA[ICD9: 786.09] Diagnosis: VAC STREP PNEUMONIAE-FLU (Medicare)[ICD9: V06.6] Lita [facility] CPT-4: 08565 07/10/2012 ([id number]) OFFICE/OUTPATIENT VISIT EST Diagnosis: DM W/O COMPLICATION TYPE II, UNCONTROLLED[ICD9: 250.02] Diagnosis: HYPERTENSION[ICD9: 401.9] Diagnosis: HYPERLIPIDEMIA NEC/NOS[ICD9: 272.4] Diagnosis: DIZZINESS/VERTIGO[ICD9: 780.4] Lita [facility] CPT-4: 16658 05/09/2012 ([id number]) OFFICE/OUTPATIENT VISIT EST Diagnosis: DM W/O COMPLICATION TYPE II, UNCONTROLLED[ICD9: 250.02] Diagnosis: HYPERLIPIDEMIA NEC/NOS[ICD9: 272.4] Diagnosis: HYPERTENSION[ICD9: 401.9] Diagnosis: MALAISE AND FATIGUE[ICD9: 780.79] Lita Segura [facility] CPT-4: 14036 05/06/2012 OFFICE/OUTPATIENT VISIT EST Diagnosis: COUGH[ICD9: 786.2] Diagnosis: SINUSITIS, ACUTE[ICD9: 461.9] Diagnosis: PHARYNGITIS, ACUTE[ICD9: 462] Lita CRAWFORD S. [facility]END[facility] DO [facility] CPT-4: 58258 10/02/2011 OFFICE/OUTPATIENT VISIT EST Diagnosis: DM W/O COMPLICATION TYPE II, UNCONTROLLED[ICD9: 250.02] Diagnosis: HYPERLIPIDEMIA NEC/NOS[ICD9: 272.4] Diagnosis: HYPERTENSION[ICD9: 401.9] Diagnosis: COPD[ICD9: 496] Lita Jasminelvabev CRAWFORD S. OREND[facility] DO [facility] CPT- 4: 51795 08/07/2011 OFFICE/OUTPATIENT VISIT EST Lita Gasper CRAWFORD S. ORE NDER DO [facility] CPT- 4: 09873 04/03/2011 ([id number]) OFFICE/OUTPATIENT VISIT EST Lita Gasper TOBAR UELINE [facility] CPT-4: 37500 01/18/2011 ([id number]) OFFICE/OUTPATIENT VISIT EST Lita Gasper [facility] CPT-4: 09658 12/19/2010 ([id number]) OFFICE/OUTPATIENT VISIT, EST Lita Jasminelvabev ALIZE RAJESHJESSICA [facility] CPT-4: 76388 04/05/2010 ([id number]) OFFICE/OUTPATIENT VISIT, EST Lita HOLMAN [facility] CPT-4: 97287 01/13/2010 ([id number]) OFFICE/OUTPATIENT VISIT, EST Lita HERRMANN RAJESHJESSICA [facility] CPT-4: 94090 12/23/2009 ([id number]) OFFICE/OUTPATIENT VISIT, EST Lita HOLMAN [facility] [employer] CPT-4: 39312 12/22/2009 ([id number]) OFFICE/OUTPATIENT VISIT, SUZANNE HerrmannLita Oreelvabev ManFerdinand BARAKAT DO [employer] CPT-4: 77164 12/13/2009 Plan of Care Planned Activity Notes Codes Status Date Visit Diagnosis Plan: Chronic obstructiv e pulmonary disease with (acute) exacerbation Discussion: Solumedrol 125mg IM Continue SVNs every 4hrs Prednisone for 1 week COVID-19 precautions ICD-9 : 491.21 ICD-10 : J44.1 12/25/2019 Patient Education: prednisone- [employer] Coupon [id number] https://www.[employer]/Kuponjo/resources/getResource/61/[email or web address] Completed 12/25/2019 Visit Diagnosis Plan: Noncompliance with diabetes roslyn tment Discussion: Increase levemir to 15u sc daily and call in 1 week with BS readings ICD-9 : V15.81 ICD-10 : Z91.19 12/22/2019 Visit Diagnosis Plan: Pain in right knee Discussion: C ontinue Hydrocodone q HS Add Baclofen 10mg q HS Call in few days on how doing ICD-9 : 719.46 ICD-10 : M25.561 12/22/2019 Appointment: Lita Barakat [facility]el[facility] [phone] [facility] [facility] 12/22/2019 Patient Education: baclofen- [employer] Coupon [id number] https://www.[employer]/Kuponjo/resources/getResource/61/[email or web address] Completed 12/22/2019 Visit Diagnosis Plan: Chronic respiratory failure with [...] ICD-9 : 496 ICD-10 : J44.9 11/12/2019 Visit Diagnosis Plan: Basal cell carcinoma, face Discu ssion: See Dr. Swanson for excision ICD-9 : 173.31 ICD-10 : C44.310 11/12/2019 Appointment: Lita Barakat WPtel: [address] [place] [address] ACUTE ILLNESS 11/12/2019 Care Plan: Referral Order SNOMED-CT : 30 [id number] Pending 11/12/2019 Care Plan: Referral Order SNOMED-CT : 30 2033963 Pending 11/12/2019 Visit Diagnosis Plan: Right thyroid nodule Discussion: Check thyroid US ICD-9 : 241.0 ICD-10 : E04.1 09/11/2019 Visit Diagnosis Plan: Chronic obstructive pulmonary di sease, unspecified Discussion: Start Pulmonary Rehab Reviewed results of CT of chest ordered by pulmonology Follow Up: 3 months ICD-9 : 496 ICD-10 : J44.9 09/11/2019 Appointment: Lita Barakat WPtel: [address] [place], [place] [address] MEDICATION REVIEW 09/11/2019 Care Plan: US EXAM OF HEAD AND NECK LOIN C : 86029-4 Pending 09/11/2019 Visit Diagnosis Plan: Chronic bronchitis Discussion: A ugmentin for 10 days ICD-9 : 491.9 ICD-10 : J42 08/07/2019 Appointment: Lita Barakat WPtel: [address] [place] [address] ACUTE ILLNESS 08/07/2019 Visit Diagnosis Plan: Chronic obstructiv e pulmonary disease with (acute) exacerbation Discussion: solumedrol given in office. moisés amato sent out for cough prn and refill [...] him that overuse of symbicort can cause halfway damage and the albuterol is to be used every 4 hours as needed. call office later this week with worsening or no improvement ICD-9 : 491.21 ICD-10 : J44.1 07/14/2019 Appointment: Autumn Oneil [address] [place], [place] [address] 07/14/2019 Visit Diagnosis Plan: Dyspepsia and othe r specified disorders of function of stomach Discussion: Has CT scan scheduled at end of week Proceed with EGD ICD-9 : 536.8 ICD-10 : K31.89 07/01/2019 Visit Diagnosis Plan: Primary insomnia Discussion: Inc rease seroquel to 50mg po q HS--as instructed to do last week Follow Up: 2 weeks ICD-9 : 780.52 ICD-10 : F51.01 07/01/2019 Appointment: Lita Barakat WPtel: [phone] [facility] FOLLOW UP 07/01/2019 Care Plan: CT ABDOMEN W/O DYE LOINC : 36 103-0 Pending 07/01/2019 Care Plan: Referral Order SNOMED-CT : 30 [id number] Pending 07/01/2019 Visit Diagnosis Plan: Weight loss Discussion: Check GB US May need EGD Fwup 1 week ICD-9 : 783.21 ICD-10 : R63.4 06/24/2019 Visit Diagnosis Plan: Nausea Discussion: Hold hydrocod one Add ondansetran 4mg q HS ICD-9 : 787.02 ICD-10 : R11.0 06/24/2019 Visit Diagnosis Plan: Epigastric pain Discussion: Chec k pancreatic enzymes Check abdominal US ICD-9 : 789.06 ICD-10 : R10.13 06/24/2019 Appointment: Lita Barakat WPtel: [phone] [facility] ACUTE ILLNESS 06/24/2019 Patient Education: Seroquel- [employer] Coupon [id number] https://[email or web address] Completed 06/24/2019 Patient Education: ondansetron HCl- [employer] Coupon [id number] [email or web address] Completed 06/24/2019 Care Plan: US EXAM ABDOM COMPLETE LOINC : 04313-4 Pending 06/24/2019 Visit Diagnosis Plan: Chronic insomnia Discussion: Jimbo l likely switch trazadone to mood stabilizer pending [...] ICD-9 : 496 ICD-10 : J44.9 06/17/2019 Visit Diagnosis Plan: Anemia Discussion: Check CBC, ir on, B12 If iron still low then will consider iron infusion ICD-9 : 285.9 ICD-10 : D64.9 06/17/2019 Visit Diagnosis Plan: Diplopia Discussion: See ophtham ology May need CT scan of head ICD-9 : 368.2 ICD-10 : H53.2 06/17/2019 Appointment: Lita Barakattel: [address] [place], [place] [phone] US FOLLOW UP 06/17/2019 Appointment: Lita Barakat WPtel: [address] [place], [place] [phone] US INJECTION 06/10/2019 Appointment: Lita Barakat WPtel: [address] [place] [place], [place] [id number] [place] INJECTION 06/02/2019 Appointment: Lita Barakat WPtel: [address] [place], [place] [address] [place] INJECTION 05/27/2019 Appointment: Lita Barakat WPtel: [address] [place], [place] [address] [place] INJECTION 05/12/2019 Visit Diagnosis Plan: Anemia, unspecified Discussion: Check CBC, iron, Ferritin, B12 ICD-9 : 285.9 ICD-10 : D64.9 05/08/2019 Visit Diagnosis Plan: Primary insomnia Discussion: Nathalie segura sent out numerous sleeping meds but has stated in past did not work ICD-9 : 780.52 ICD-10 : F51.01 05/08/2019 Visit Diagnosis Plan: Type 2 diabetes mellitus with hy perglycemia Discussion: Lab discussed Accuchecks daily Continue current meds Check CMP and HbA1C in 3mos then fwup ICD-9 : 250.02 ICD-10 : E11.65 05/08/2019 Visit Diagnosis Plan: Restless legs syndrome Discussio n: Has tried numerous meds but has been noncompliant as well ICD-9 : 333.94 ICD-10 : G25.81 05/08/2019 Visit Diagnosis Plan: Vitamin D deficiency, unspecifie d Discussion: Check Vitamin D level ICD-9 : 268.9 ICD-10 : E55.9 05/08/2019 Appointment: Lita Barakat WPtel: [address] [place], [place] [phone] FOLLOW UP 05/08/2019 Visit Diagnosis Plan: Pain in right knee Discussion: S top tramadol and tylenol q HS Trial of Hydrocodone 10/325mg po q HS Recheck 1month ICD-9 : 719.46 ICD-10 : M25.561 04/07/2019 Appointment: Lita Barakat WPtel: [address] [place], [place] [phone] Hospital Follow Up 04/07/2019 Visit Diagnosis Plan: [...] ICD-10 : F41.1 03/24/2019 Appointment: Autumn Oneil [address] [place], [place] [id number] ACUTE ILLNESS 03/24/2019 Patient Education: hydroxyzine HCl- [employer] Coupon [id number] Completed 03/24/2019 Patient Education: pantoprazole- [employer] Coupon [id number] Completed 03/24/2019 Visit Diagnosis Plan: Chronic obstructiv e pulmonary disease with (acute) exacerbation Discussion: 90 mg solumedrol given in of fice. patient's portable oxygen tank was empty. [id number] patient on importance of monitoring oxygen tank to be sure it does not become empty when he's out of the house. patient states he has an extra one in the car that he will use. ICD-9 : 491.21 ICD-10 : J44.1 03/21/2019 Visit Diagnosis Plan: Dizziness and giddiness Discussi [...] ICD-9 : 780.4 ICD-10 : R42 03/21/2019 Appointment: Autumn Oneil [address] [place], [place] [id number] ACUTE ILLNESS 03/21/2019 Patient Education: ipratropium-albuterol- [employer] C marielapon [id number] https://www.Kuponjo.com/samplemd/resources/getResource/61/o2lq59h4-f9m6-9j9v-86 Completed 03/21/2019 Visit Diagnosis Plan: Chronic obstructiv e pulmonary disease with (acute) exacerbation Discussion: Solumedrol now Use SVNs with duoneb at least q4hrs Patient is supposed to be on continuous oxygen but not wearing ICD-9 : 491.21 ICD-10 : J44.1 03/13/2019 Visit Diagnosis Plan: Candidal stomatitis Discussion: Diflucan and Nystatin susp ICD-9 : 112.0 ICD-10 : B37.0 03/13/2019 Appointment: Lita Barakat WPtel: [address] [place] [address] ACUTE ILLNESS 03/13/2019 Patient Education: losartan- [employer] Coupon [id number] Completed 03/13/2019 Patient Education: nystatin- [employer] Coupon [id number] Completed 03/13/2019 Patient Education: fluconazole- [employer] Coupon [id number] Completed 03/13/2019 Visit Diagnosis Plan: Chronic obstructiv e pulmonary disease with acute lower respiratory infection Discussion: Finish meds from ER Follow Up: 1 weeks ICD-9 : 491.22 ICD-10 : J44.0 03/10/2019 Visit Diagnosis Plan: Restless legs syndrome [...] ICD-9 : 333.94 ICD-10 : G25.81 03/10/2019 Appointment: Lita Barakat WPtel: [address] [place] [address] ACUTE ILLNESS 03/10/2019 Visit Diagnosis Plan: Restless legs syndrome Discussio n: Stop requip Increase sinemet to TID Add children's chewable MV with iron BID Add magnesium oxide 400mg daily Add Lyrica 75mg po q HS Stop trazadone Recheck 3 weeks Follow Up: 3 weeks ICD-9 : 333.94 ICD-10 : G25.81 02/26/2019 Appointment: Lita Barakat WPtel: [address] [place] [address] ACUTE ILLNESS 02/26/2019 Visit Diagnosis Plan: Primary insomnia Discussion: Tri al of doxepin 10-20mg po q HS prn sleep ICD-9 : 780.52 ICD-10 : F51.01 02/13/2019 Visit Diagnosis Plan: Chronic obstructive pulmonary di sease, unspecified Discussion: Stable Discussed trip to [place]--will get oxygen setup through [facility] ICD-9 : 496 ICD-10 : J44.9 02/13/2019 Appointment: Lita Barakat WPtel: [address] [place], [place] [phone] FOLLOW UP 02/13/2019 Patient Education: doxepin- [employer] Coupon [id number] https://www.TerraLUX/samplemd/resources/getResource/61/25z8m90s-90rz-213q-8e Completed 02/13/2019 Appointment: Lita Barakat WPtel: [address] [place], [place] [phone] [place] CANCELED 01/20/2019 Visit Diagnosis Plan: Chronic obstructive pulmonary di sease, unspecified Discussion: Stable on oxygen Given Symbicort samples Follow Up: 1 months ICD-9 : 496 ICD-10 : J44.9 01/14/2019 Appointment: Lita Barakat WPtel: [address] [place], [place] [address] [facility] Follow Up 01/14/2019 Visit Diagnosis Plan: Chronic obstructiv e pulmonary disease with (acute) exacerbation Discussion: Solumedrol given and finish medrol dose pack Add spiriva daily Recheck 1month Stress importance of SVNS with albuterol q4hrs routinely and that he needs to stay home and not be traveling or driving at this time ICD-9 : 491.21 ICD-10 : J44.1 12/25/2018 Visit Diagnosis Plan: Chronic respiratory failure with hypoxia Discussion: Continue oxygen at 5L NC ICD-9 : 518.83 ICD-10 : J96.11 12/25/2018 Appointment: Lita Barakat WPtel: [address] [place], [place] [address] Hospital Follow Up 12/25/2018 Appointment: Lita Barakat WPtel: [address] [place], [place] [phone] [place] CANCELED 12/23/2018 Appointment: Ines Banerjee [address] [place], [place] [address] CANCELED 12/20/2018 Visit Diagnosis Plan: Acute recurrent maxillary sinusi tis Discussion: Cefdinir- take as directed. Humidifier advised. Salt water gargles for throat pain. FLuids and rest encouraged. Phenergan with codeine called into pharmacy. Advised not to take medication with Tylenol PM or other OTC cough medication. He states understanding. FU PRN. ICD-9 : 461.0 ICD-10 : J01.01 12/09/2018 Visit Diagnosis Plan: Essential (primary) hypertension Discussion: Patient labs performed today- pending CBC, CMP, TSH, free T4, lipid, and A1C. Will call with results and any medication adjustments. ICD-9 : 401.9 ICD-10 : I10 12/09/2018 Appointment: Ines Banerjee [address] [place], [place] [id number] 12/09/2018 Patient Education: cefdinir- [employer] Coupon [id number] https://www.TerraLUX/samplemd/resources/getResource/61/o5303n5s-03oi-0685-53 Completed 12/09/2018 Visit Diagnosis Plan: Candidal stomatitis Discussion: Diflucan for 5 days Hold atorvastatin while taking ICD-9 : 112.0 ICD-10 : B37.0 12/05/2018 Appointment: Lita Barakat WPtel: [address] [place], [place] [id number] ACUTE ILLNESS 12/05/2018 Patient Education: fluconazole- [employer] Coupon [id number] https://www.TerraLUX/samplemd/resources/getResource/61/8y302r51-1dx6-79i0-66 Completed 12/05/2018 Appointment: Lita Barakat WPtel: [address] [place] [address] NO SHOW 11/11/2018 Visit Plan: Saline nasal flushes prn. Ty lenol/Motrin prn headache. Notify if persists/symptoms worsening. 10/23/2018 Visit Diagnosis Plan: Pain in right knee Discussion: S eeing ortho tomorrow for injection Tramadol refilled ICD-9 : 719.46 ICD-10 : M25.561 10/23/2018 Visit NOS Plan: Plan Notes: Saline nasal flu shes prn. Tyle... 10/23/2018 Visit Diagnosis Plan: Acute recurrent sinusitis, unspe cified Discussion: Prednisone ICD-9 : 461.9 ICD-10 : J01.91 10/23/2018 Appointment: Lita Barakat WPtel: [phone] [facility] [facility] 10/23/2018 Patient Education: prednisone- [employer] Coupon [id number] https://www.TerraLUX/Kuponjo/resources/getResource/61/nt2ax444-qmpg-0758-12 Completed 10/23/2018 Care Plan: A1C HPLC LOINC : 18938-6 Pending 09/10/2018 Care Plan: COMPREH[place] : [address]-8 Pending 09/10/2018 Care Plan: CBC Pending 09/10/2018 [...] G25.81 08/21/2018 Appointment: Lita Barakat WPtel: [phone] [facility] [facility] 08/21/2018 Care Plan: Referral Order SNOMED-CT : 30 0506893 Pending 08/21/2018 Visit Diagnosis Plan: Chronic obstructiv [...] : G25.81 08/07/2018 Appointment: Lita Barakat WPtel: [address] [place], [place] [phone] [place] [address] FOLLOW UP 08/07/2018 Appointment: Lita Barakat WPtel: [address] [place], [place] [phone] 07/18/18 1210---see note in chart (km) CANCELED 07/18/2018 Visit Diagnosis Plan: Chronic obstructiv e pulmonary disease with acute lower respiratory infection Discussion: Solumedrol 125mg IM Change t o trelagy 1 inhalation daily Use SVNs with albuterol q4hrs To ER this weekend if worsens Monitor weight/swelling ICD-9 : 496 ICD-10 : J44.0 05/23/2018 Appointment: Lita Barakat WPtel: [address] [place] [address] ACUTE ILLNESS 05/23/2018 Patient Education: Patient Medication Summary Completed 05/23/2018 Visit Diagnosis Plan: Candidal stomatitis Discussion: Diflucan for 7 more days--hold atrovastatin while taking ICD-9 : 112.0 ICD-10 : B37.0 05/02/2018 Appointment: Lita Barakat WPtel: [address] [place], [place] [phone] FOLLOW UP 05/02/2018 Patient Education: Patient Medication Summary Completed 05/02/2018 Visit Diagnosis Plan: Candidal stomatitis Discussion: discussed [...] ICD-9 : 788.29 ICD-10 : R33.8 04/29/2018 Visit Diagnosis Plan: Chronic obstructiv e [...] ICD-9 : 491.22 ICD-10 : J44.0 04/29/2018 Appointment: Autumn Oneil [address] [place] [address] ACUTE ILLNESS 04/29/2018 Patient Education: Patient Medication [...] : J44.0 04/22/2018 Appointment: Lita Barakattel: [address] [facility] Hospital Follow Up 04/22/2018 Patient Education: Patient Medication Summary Completed 04/22/2018 Appointment: Lita Barakat WPtel: [address] [place], [place] [phone] 04/09/18 1640---see message in chart from today [...] : M17.11 01/28/2018 Appointment: Lita Barakat WPtel: [address] [place] [address] ACUTE ILLNESS 01/28/2018 Patient Education: Patient Medication Summary Completed 01/28/2018 Care Plan: Referral Order SNOMED-CT : 30 9055824 Pending 01/28/2018 Care Plan: Referral Order SNOMED-CT : 30 3567004 Pending 01/28/2018 Visit Diagnosis Plan: Functional dyspepsia Discussion: Protonix Call in 1 week on how doing ICD-9 : 536.8 ICD-10 : K30 01/23/2018 Visit Diagnosis Plan: Pain in right knee Discussion: T opical voltaren gel QID ICD-9 : 719.46 ICD-10 : M25.561 01/23/2018 Appointment: Lita Barakat WPtel: [address] [place], [place] [phone] ACUTE ILLNESS 01/23/2018 Patient Education: Patient Medication Summary Completed 01/23/2018 Visit Diagnosis Plan: Chronic obstructiv e pulmonary disease with acute lower respiratory infection Discussion: Continue SVNS with albuterol q4hs Prednisone ICD-9 : 491.22 ICD-10 : J44.0 01/02/2018 Visit Diagnosis Plan: Urinary tract infection, site no t specified Discussion: Levaquin for 1 week Follow Up: 1 weeks ICD-9 : 599.0 ICD-10 : N39.0 01/02/2018 Appointment: Lita Barakat WPtel: [phone] [id number] ACUTE ILLNESS 01/02/2018 Patient Education: Patient Medication [...] ICD-10 : J44.1 12/28/2017 Appointment: Autumn Oneil [address] [place] [address] Consult 12/28/2017 Patient Education: Patient Medication Summary [...] : J20.9 12/21/2017 Appointment: Autumn Oneil [address] [facility] ACUTE ILLNESS 12/21/2017 Patient Education: Patient Medication Summary Completed 12/21/2017 Care Plan: X-RAY EXAM OF KNEE 1 OR 2 right [place] : [address]-1 Pending 12/18/2017 Visit Diagnosis Plan: Pain in right knee Discussion: x ray of knee ordered to be completed today due to fall. instructed to keep brace on knee while ambulating to assist with pain and swelling. ICD-9 : 719.46 ICD-10 : M25.561 12/17/2017 Visit Diagnosis Plan: Chronic obstructiv e pulmonary [...] ICD-9 : 491.22 ICD-10 : J44.0 12/17/2017 Appointment: Autumn Oneil [address] [place] [address] ACUTE ILLNESS 12/17/2017 Patient Education: Patient Medication Summary Completed 12/17/2017 Visit Diagnosis Plan: Unilateral primary osteoarthriti s, right knee Discussion: Right knee injection as above Warned of elevated BS after injection ICD-9 : 715.96 ICD-10 : M17.11 12/11/2017 Appointment: Lita Barakat WPtel: [address] [place] [address] OFFICE SURGERY 12/11/2017 Patient Education: Patient Medication Summary Completed 12/11/2017 Visit Diagnosis Plan: Actinic keratosis Discussion: Cr yotherapy as above If persists then will need excision by Dr. Swanson ICD-9 : 702.0 ICD-10 : L57.0 11/07/2017 Appointment: Lita Barakat WPtel: [address] [place] [address] ACUTE ILLNESS 11/07/2017 Patient Education: Patient Medication [...] : S61.411S 10/17/2017 Appointment: Lita Barakat WPtel: [address] [place], [place] [phone] ER Follow UP 10/17/2017 Patient Education: Patient Medication Summary Completed 10/17/2017 Appointment: Lita Barakat WPtel: [facility] [place] Consult 08/15/2017 Visit Diagnosis Plan: Chronic [...] ICD-10 : J44.0 08/02/2017 Appointment: Autumn Oneil [address] [place] [address] ACUTE ILLNESS 08/02/2017 Patient Education: Patient Medication Summary Completed 08/02/2017 Patient Education: Patient Medication Summary Completed 07/31/2017 Care Plan: CHEST X-RAY 2VW FRONTAL&LATL LOINC : 36120-3 Pending 07/31/2017 Appointment: Lita Barakat WPtel: [address] [place], [place] [phone] [place] INJECTION 07/24/2017 Patient Education: Patient Medication [...] ICD-10 : J44.1 07/02/2017 Appointment: Autumn Oneil [address] [place] [address] ACUTE ILLNESS 07/02/2017 Patient Education: Patient Medication Summary Completed 07/02/2017 Care Plan: CHEST X-RAY 2VW FRONTAL&LATL LOINC : 09300-3 Pending 07/02/2017 Care Plan: MRI LUMBAR SPINE W/O DYE LOIN C : 74621-1 Pending 05/30/2017 Visit Plan: MRI at [facility] codone 5.325 1 po q 4-6 hours prn pain #40 NR and Cyclobenzaprine (ERx) Continue warm packs for pain RTC if no improvement 05/29/2017 Appointment: Ruchi Buchanan WPtel: [address] [place] [address] ACUTE ILLNESS 05/29/2017 Patient Education: Patient Medication Summary Completed 05/29/2017 Appointment: Lita Barakat WPtel: [address] [place] [address] US CANCELED 05/24/2017 Patient Education: Patient Medication Summary Completed 05/22/2017 Care Plan: X-RAY EXAM L-S SPINE 2/3 VWS LOINC : 88364-4 Pending 05/22/2017 Appointment: Lita Barakat WPtel: [address] [place] [address] LAB 04/17/2017 Patient Education: Patient Medication Summary Completed 04/17/2017 Referral: Demetrius Rodriguez WPtel: [address] Referral Initiated 04/05/2017 Appointment: Lita Barakat WPtel: [address] [place] [address] 03/30/17 0930---spoke with patient about ointments (km Consult 03/30/2017 Appointment: Lita Barakat WPtel: [address] [place], [place] [address] 03/29/17 1320---spoke with patient, requip refilled wasn't received at pharmacy so verbally called (km) Consult 03/29/2017 Patient Education: Patient Medication Summary Completed 03/01/2017 Care Plan: CHEST X-RAY 2VW FRONTAL&LATL LOINC : 14920-0 Pending 03/01/2017 Visit Diagnosis Plan: Bursitis of left shoulder Discus yesi: Injection as above ICD-9 : 726.10 ICD-10 : M75.52 02/01/2017 Appointment: Lita Barakat WPtel: [address] [place], [place] [phone] 01/31 confirmed ~sl WORK IN 02/01/2017 Patient Education: Patient Medication Summary Completed 02/01/2017 Care Plan: X-RAY EXAM OF SHOULDER LOINC : 69579-9 Pending 01/30/2017 Visit Plan: May take OTC Tylenol/Ibuprof en as directed XRay at [facility] of left shoulder Tramadol 50mg 1 po q 6 hours prn pain called to [facility]. Sedation warning given (no driving, etc) RTC if no improvement 01/29/2017 Appointment: Ruchi Buchanan WPtel: [address] [place], [place] [phone] ACUTE ILLNESS 01/29/2017 Appointment: Ruchi Buchanan WPtel: [address] [place], [place] [phone] ACUTE ILLNESS 01/29/2017 Patient Education: Patient Medication Summary Completed 01/29/2017 Appointment: Lita Barakat WPtel: [address] [place] [phone] [place] Consult 01/10/2017 Appointment: Lita Barakat WPtel: [address] [place] [phone] 12/27/2016 Patient Education: Patient Medication Summary Completed 12/27/2016 Patient Education: Patient Medication Summary Completed 12/22/2016 Visit Diagnosis Plan: Other iron deficiency anemias Di scussion: If hemoglobin still low will do transfusion ICD-9 : 280.9 ICD-10 : D50.8 12/21/2016 Visit Diagnosis Plan: Other fatigue Discussion: Check CBC today/stat Use Doxepin with restless leg meds toight to help get rest/sleep ICD-9 : 780.79 ICD-10 : R53.83 12/21/2016 Appointment: Lita Barakat WPtel: [address] [place], [place] [address] ACUTE ILLNESS 12/21/2016 Patient Education: Patient Medication Summary Completed 12/21/2016 Appointment: Lita Barakat WPtel: [address] [place] [phone] [place] CANCELED 12/18/2016 Visit Diagnosis Plan: Restless [...] ICD-10 : D64.9 12/14/2016 Appointment: Lita Barakattel: [address] [place] [phone] 12/13 confirmed ~sl WORK IN 12/14/2016 Appointment: Lita Barakat WPtel: [address] [place], [place] [address] [place] CANCELED 12/14/2016 Patient Education: Patient Medication Summary Completed 12/14/2016 Appointment: Lita Barakattel: [address] [place] [phone] [place] LAB 12/12/2016 Patient Education: Patient Medication Summary Completed 12/12/2016 Appointment: Lita Barakat WPtel: [address] [place] [phone] in ER this weekend--called for reports Consult 12/11/2016 Appointment: Lita Barakat WPtel: [address] [place], [place] [phone] CANCELED 12/04/2016 Visit Diagnosis Plan: Pneumonia, [...] ICD-10 : G25.81 11/14/2016 Appointment: Magda Toth [address] [place] [address] MEDICATION REVIEW 11/14/2016 Patient Education: Patient Medication Summary Completed 11/14/2016 Appointment: Lita Barakat WPtel: [address] [place] [phone] RESCHEDULED 11/02/2016 Visit Diagnosis Plan: Candidal stomatitis Discussion: Diflucan and Nystatin Hold atorvastatin while taking diflucan ICD-9 : 112.0 ICD-10 : B37.0 10/31/2016 Appointment: Lita Barakat WPtel: [address] [place], [place] [phone] ACUTE ILLNESS 10/31/2016 Patient Education: Patient Medication Summary Completed 10/31/2016 Appointment: Lita Barakat WPtel: [address] [place] [phone] [place] Consult 10/23/2016 Appointment: Lita Barakat WPtel: [address] [place] [address] US CANCELED 10/18/2016 Visit Plan: Rx as above Wear O2 at all t imes as instructed by Dr Chacon Continue breathing treatments Supportive care otherwise reviewed Follow up ingrid if not improving 10/03/2016 Appointment: Lita Barakat WPtel: [address] [place] [phone] [place] CANCELED 10/03/2016 Appointment: Magda Toth [address] [place] [address] ACUTE ILLNESS 10/03/2016 Patient Education: Patient Medication Summary Completed 10/03/2016 Visit Plan: Titrate requip to 1.5mg x 1 week Call if not helpful and will increase to 2mg qHS NO MORE nyquil at bedtime - discussed potential effects of decongestants on heart, oversedating himself, etc Will increase requip, then amitriptyline if needed to desired effect 09/04/2016 Appointment: Magda Toth [address] [place] [address] ACUTE ILLNESS 09/04/2016 Patient Education: Patient Medication Summary Completed 09/04/2016 Visit Plan: Stop requip and try elavil C ryotherapy as above See ENT for removal of right ear lesion 08/22/2016 Appointment: Lita Barakat WPtel: [address] [place] [address] ACUTE ILLNESS 08/22/2016 Patient Education: Patient Medication Summary Completed 08/22/2016 Visit Plan: Trial of requip 1mg q HS Res tart zoloft Recheck 1month 08/10/2016 Appointment: Lita Barakat WPtel: [address] [place] [address] ACUTE ILLNESS 08/10/2016 Patient Education: Patient Medication Summary Completed 08/10/2016 Visit Plan: Stop HCTZ Flagyl for diarrhe a Hydrate Discussed meds for restless legs Zofran prn Nausea 07/06/2016 Appointment: Lita Barakat WPtel: [address] [place], [place] [phone] 07/05 confirmed~ Hospital Follow Up 07/06/2016 Patient Education: Patient Medication Summary Completed 07/06/2016 Visit Plan: Reviewed with Dr Gasper Palacios sidering his recent history, instructed him to go straight to the ER called to notify her so she can meet him there 06/22/2016 Appointment: Magda Toth [address] [place] [address] ACUTE ILLNESS 06/22/2016 Patient Education: Patient Medication Summary Completed 06/22/2016 Visit Plan: Continue current meds Prevna r 13 and High Dose Flu given 06/13/2016 Appointment: Lita Barakat WPtel: [address] [place], [place] [id number] 06/13 confirmed~ WORK IN 06/13/2016 Patient Education: Patient Medication Summary Completed 06/13/2016 Appointment: Lita Barakat WPtel: [address] [facility]6[address] just went over current medications CANCELED 06/08/2016 Visit Plan: Reviewed POC with Dr Barakat Stat cbc, cmp, d dimer, troponin, bnp, ekg, cxr If any worsening of symptoms while awaiting results, patient instructed to go to ER or call 911 06/01/2016 Appointment: Magda Toth [address] [place], [place] [address] ACUTE ILLNESS 06/01/2016 Patient Education: Patient Medication Summary Completed 06/01/2016 Referral: José Miguel Swanson WPtel: [address] 04/[address] swanson's office, patient [...] eval and treatment 04/26/2016 Appointment: Magda Toth [address] [place], [place] [phone] ACUTE ILLNESS 04/26/2016 Patient Education: Patient Medication Summary Completed 04/26/2016 Care Plan: Referral Order SNOMED-CT : 30 0165164 Pending 04/26/2016 Visit Plan: Left ear flushed after conse nt with warm water with peroxide with ear syringe Patient tolerated well Ear exam is wnl following flushing Follow up PRN 04/05/2016 Appointment: Magda Toth [address] [place], [place] [phone] ACUTE ILLNESS 04/05/2016 Patient Education: Patient Medication Summary Completed 04/05/2016 Visit Plan: Increase Levemir to 25u sc d aily Increase sertraline to 2 full tablets daily--200mg Debrox or cerumenex to bilateral ears q HS for 3 nights then flush or fwup for fushing Check lab in 2mos then fwup 04/03/2016 Appointment: Lita Barakat WPtel: [address] [place], [place] [phone] 03/31 7/8 lm ~sl FOLLOW UP 04/03/2016 Patient Education: Patient Medication Summary Completed 04/03/2016 Visit Plan: Patient informed of correct dosage of levemir and how to administer. Patient verbalizes understanding and will call if any questions/concerns. 10 Units of Levemir given in office SC to right lower abdom en. Patient tolerated well. Site without redness/irritation. 03/13/2016 Appointment: Lita Barakat WPtel: [address] [place], [place] [phone] SPECIAL 03/13/2016 Patient Education: Patient Medication Summary Completed 03/13/2016 Appointment: Lita Barakat WPtel: [address] [place], [place] [phone] LAB 03/06/2016 Patient Education: Patient Medication Summary Completed 03/06/2016 Visit Plan: Patient saw Dr. Chacon this week and was given prednisone taper for COPD Continue current meds Accuchecks daily Patient will return on Sunday morning for fasting lab incuding CBC, CMP, TSH, free T4, HbA1C, Lipids, Testosterone, PSA 03/02/2016 Appointment: Lita Barakat WPtel: [address] [place] [address] 03/01 confirmed ~sl FOLLOW UP 03/02/2016 Patient [...] how doing 02/17/2016 Appointment: Lita Barakat WPtel: [address] [place] [address] WORK IN 02/17/2016 Patient Education: Patient Medication Summary Completed 02/17/2016 Visit Plan: Xrays to further evaluate Alvarez spect heel spur(s) Will call with results Has had injections in the past that were helpful Dr Barakat can do them or can refer to podiatry if warranted 02/14/2016 Appointment: Magda Toth [address] [place] [address] ACUTE ILLNESS 02/14/2016 Patient Education: Patient Medication Summary Completed 02/14/2016 Visit Plan: Increase Zoloft to 150mg cooper ly 01/31/2016 Appointment: Lita Barakat WPtel: [address] [place] [address] 01/26 confirmed `sl FOLLOW UP 01/31/2016 Patient Education: Patient Medication Summary Completed 01/31/2016 Visit Plan: Decrease citalopram to 20mg q AM for 1 week then stop Start zoloft 50mg q HS for 1 week then increase to 100mg q HS 12/30/2015 Appointment: Lita Barakat WPtel: [address] [place], [place] [phone] 12/28 confirmed~sl ACUTE ILLNESS 12/30/2015 Patient Education: Patient Medication Summary Completed 12/30/2015 Visit Plan: Check Neck US 12/16/2015 Appointment: Lita Barakat WPtel: [address] [place], [place] [id number] [place] 12/14 lm ~sl 12/15 confirmed-sp FOLLOW UP 12/16/2015 Patient Education: Patient Medication Summary Completed 12/16/2015 Care Plan: US EXAM OF HEAD AND NECK LOIN C : 43199-3 Ordered 12/16/2015 Appointment: Stephanie Rios WPtel: [address] [place], [place] [id number] 12/09 confirmed-sp 12/12 lm ~sl Patient r mannie call and stated he just plain forgot ~sl FOLLOW UP 12/13/2015 Visit Plan: Had changing lesions of fore head and left mastoid area removed earlier today. Follow-up in one week Will proceed with soft tissue ultrasound of neck/ left cervical lymph node if no improvement antibiotics Clindamycin 300mg PO TID 12/06/2015 Appointment: Stephanie Rios WPtel: [address] [place], [place] [phone] ACUTE ILLNESS 12/06/2015 Patient Education: Patient Medication Summary Completed 12/06/2015 Referral: Lisbeth Darby WPtel: [facility] [address] [id number] 11/18/15 called luther at [place] office and confirmed time and date of appointment with patient~sl Initiated 11/18/2015 Visit Plan: Referral to Dermatology for removal of facial skin lesions Cefdinir PO bid Topical Mupirocin to skin lesions bid 11/15/2015 Appointment: Stephanie Rios WPtel: [address] [place], [place] [id number] ACUTE ILLNESS 11/15/2015 Patient Education: Patient Medication Summary Completed 11/15/2015 Visit Plan: Continue current meds Accuch ecks daily Fwup with ophthamology as scheduled Will check lab in 3mos then fwup due to recent meds that will affect blood sugar 10/05/2015 Appointment: Lita Barakat WPtel: [address] [place], [place] [phone] 10/04/15 appt confirmed cn Annual Well Visit 08/2016 Patient Education: Patient Medication Summary Completed 10/05/2015 Visit Plan: Trajenta -1 sample box given Return visit in 6 weeks for fasting labs Notify for worsening symptoms such as Increased redness, swelling, pain or drainage of Rt. knee 07/22/2015 Appointment: Stephanie Rios WPtel: [address] [place], [place] [phone] 07/21 vm left cn FOLLOW UP 07/22/2015 Patient Education: Patient Medication Summary Completed 07/22/2015 Visit Plan: Continue to change dressing twice daily and apply Mupirocin Complete Doxycycline as directed. Follow-up for worsening symptoms, such as increased swelling, redness or pain. 07/01/2015 Appointment: Stephanie Rios WPtel: [address] [place], [place] [phone] FOLLOW UP 07/01/2015 Patient Education: Patient Medication Summary Completed 07/01/2015 Visit Plan: Pressure dressing applied to draining wound left knee. Instructed to change dressing twice daily and continue Mupirocin topical Doxycycline PO bid x 10 days Wound culture obtained. Wound tissue sent to pathology Follow-up in 3 days 06/28/2015 Appointment: Stephanie Rios WPtel: [address] [place], [place] [phone] ACUTE ILLNESS 06/28/2015 Patient Education: Patient Medication Summary Completed 06/28/2015 Visit Plan: Complete antibiotics Follow- up for increased tenderness, swelling or drainage. 06/09/2015 Appointment: Stephanie Rios WPtel: [address] [place], [place] [phone] 06/08/15 lm FOLLOW UP 06/09/2015 Patient Education: Patient Medication Summary Completed 06/09/2015 Visit Plan: Apply pressure dressing toda y Continue antibiotics and topical Mupirocin Follow-up in 2 days Bursa drained from open area using pressure--serosanguinous drainage 06/07/2015 Appointment: Stephanie Rios WPtel: [address] [place], [place] [phone] 06/04/15 confirmed with patient FOLLOW UP 0 06/07/2015 Patient Education: Patient Medication Summary Completed 06/07/2015 Visit Plan: Wound culture Lt. knee Apply mupirocin to open wound bid Clindamycin 600 mg PO bid x 10 days Follow-up on Sunday06/03/2015 Appointment: Stehpanie Rios WPtel: [address] [place], [place] [phone] ACUTE ILLNESS 06/03/2015 Patient Education: Patient Medication Summary Completed 06/03/2015 Visit Plan: Accuchecks daily Check CMP, HbA1C today Patient is noncompliant with meds and diet but patient says he is doing everything he is supposed to do Wants to try performomist instead of albuterol in SVN 06/01/2015 Appointment: Lita Barakat WPtel: [address] [place], [place] [phone] 05/28 appt confirmed cn FOLLOW UP 06/01/20 Patient Education: Patient Medication Summary Completed 06/01/2015 Visit Plan: Change Breo Ellipta to Advai r 500/50 1 p BID this next month Continue turdoza Use albuterol prn Check CMP, HbA1C today Accuchecks daily Cryotherapy as above 02/25/2015 Appointment: Lita Barakat WPtel: [address] [place], [place] [phone] 02/24 appt confirmed and explained needed payment he said ok FOLLOW UP 02/25/2015 Patient Education: Patient Medication Summary Completed 02/25/2015 Referral: Lopez Chacon[address] [facility] C&D [id number] Will put patient on cancellation list Initiated 12/08/2014 Appointment: Lita Barakat WPtel: [facility] Hospital Follow Up 10/29/2014 Visit Plan: Finish prednisone Continue S VNs with albuterol QID See pulmonology and start Pulmonary rehab Once again discussed taking it easy this winter--that he is high risk for exacerbation 10/27/2014 Appointment: Lita Barakat WPtel: [address] [place], [place] [phone] FOLLOW UP 10/27/2014 Patient Education: Patient Medication Summary Completed 10/27/2014 Appointment: Lita Barakat WPtel: [address] [place], [place] [phone] FOLLOW UP 10/26/2014 Appointment: Stephanie Rios WPtel: [address] [place], [place] [phone] WORK IN 10/21/2014 Patient Education: Patient Medication Summary Completed 10/21/2014 Patient Education: Patient Medication Summary Completed 10/19/2014 Visit Plan: Continue oxygen and SVNS wit h duoneb Increase farxiga to 10mg daily Diflucan 100mg daily for 1week 10/06/2014 Appointment: Lita Barakat WPtel: [address] [place], [place] [phone] Moved appt time to 2:45pm FOLLOW UP 2014 Patient Education: Patient Medication Summary Completed 10/06/2014 Visit Plan: Finish omnicef Continue Breo BID and Turdoza Use SVNS with duoneb at least TID for next 2weeks then go to prn 09/21/2014 Appointment: Lita Barakat WPtel: [address] [place], [place] [phone] Hospital Follow Up 09/21/2014 Patient Education: Patient Medication Summary Completed 09/21/2014 Patient Education: [facility] - Saving Auto[employer] - Ventolin HFA - 18+ - Dynamic Portal ID Completed 09/21/2014 Appointment: Stephanie Rios WPtel: [address] [place], [place] [phone] Scheduled by 09/07 patient rescheduled to 09/08 with Stephanie. Hospital Follow Up 09/08/2014 Patient Education: Patient Medication Summary Completed 09/08/2014 Appointment: Stephanie Rios WPtel: [address] [place], [place] [phone] FOLLOW UP 09/02/2014 Patient Education: Patient Medication Summary Completed 09/02/2014 Patient Education: [employer] - Antibi otics, Analgesics 18+, Oral Contraceptives F 18+ Completed 09/02/2014 Appointment: Lita Braakat WPtel: [address] [place], [place] [phone] [place] UA 08/27/2014 Patient Education: Patient Medication [...] prn sleep 08/10/2014 Appointment: Lita Barakat WPtel: [address] [place] [address] Annual Well Visit 08/10/2014 Patient Education: Patient Medication Summary Completed 08/10/2014 Appointment: Lita Barakat WPtel: [address] [place], [place] [phone] [place] LAB 08/05/2014 Patient Education: Patient Medication Summary Completed 08/05/2014 Visit Plan: ECHO results reviewed Contin ue Breo and Turdoza Pt starts PT this afternoon for back--has had one epidural with no help in pain 05/05/2014 Appointment: Lita Barakat WPtel: [address] [place], [place] [phone] FOLLOW UP 05/05/2014 Patient Education: Patient Medication Summary Completed 05/05/2014 Visit Plan: Continue Breo and Turdoza Camargo s heart tests scheduled next week Will see surgeon for removal of skin cancer to neck after done with cardiac workup 03/24/2014 Appointment: Lita Barakat WPtel: [address] [place], [place] [phone] [place] FOLLOW UP 03/24/2014 Patient Education: Patient Medication Summary Completed 03/24/2014 Visit Plan: Proceed with cardiology eval uation as patient is has numerous risk factors for CAD Change Symbicort to Breo 1p BID and add Turdorza 1p BID Recheck in weeks Check 2-D ECHO and lexiscan 03/10/2014 Appointment: Lita Barakat WPtel: [address] [place], [place] [phone] FOLLOW UP 03/10/2014 Patient Education: Patient Medication Summary Completed 03/10/2014 Visit Plan: Shoulder injection as above Back brace to use when doing any lifting for stability 12/16/2013 Appointment: Lita Barakat WPtel: [address] [place], [place] [phone] ACUTE ILLNESS 12/16/2013 Patient Education: Patient Medication Summary Completed 12/16/2013 Visit Plan: Continue symbicort and Turdo za Salt water gargles Omnicef 300mg 2 po daily for 1wk Phenergan with codeine 10/09/2013 Appointment: Lita Barakat WPtel: [address] [place], [place] [phone] WORK IN 10/09/2013 Patient Education: Patient Medication Summary Completed 10/09/2013 Appointment: Ruchi Buchanan WPtel: [address] [place], [place] [phone] ACUTE ILLNESS 09/18/2013 Patient Education: Patient Medication Summary Completed 09/18/2013 Visit Plan: Check on repeat CXR Finish a bx Start Tradjenta to replace metformin 08/13/2013 Appointment: Lita Barakat WPtel: [address] [place], [place] [phone] 08/12 Hospital Follow Up 08/13/2013 Patient Education: Patient Medication Summary Completed 08/13/2013 Visit Plan: Admit to hospital 08/06/2013 Appointment: Stephanie Rios WPtel: [address] [place], [place] [phone] ACUTE ILLNESS 08/06/2013 Patient Education: Patient Medication Summary Completed 08/06/2013 Visit Plan: Continue current meds Contin ue accuchecks daily Proceed with stress test due to high risk for CAD 07/16/2013 Appointment: Lita Barakat WPtel: [address] [place] [address] FOLLOW UP 07/16/2013 Patient Education: Patient Medication Summary Completed 07/16/2013 Appointment: Lita Barakat WPtel: [address] [place] [address] LAB 06/25/2013 Patient Education: Patient Medication Summary Completed 06/25/2013 Visit Plan: prednisone and azithromycin. Doing CBC and mycoplasma blood draw. Will continue inhaler and albuterol breathing treatments. 04/09/2013 Appointment: Kimberly Villalba WPtel: [address] [place] [address] ACUTE ILLNESS 04/09/2013 Patient Education: Patient Medication Summary Completed 04/09/2013 Appointment: Lita Barakat WPtel: [address] [place] [address] ACUTE ILLNESS 02/11/2013 Patient Education: Patient Medication Summary Completed 02/11/2013 Appointment: Ruchi Buchanan WPtel: [address] [place] [address] ACUTE ILLNESS 01/31/2013 Patient Education: Patient Medication Summary Completed 01/31/2013 Visit Plan: Cefdinir and medrol dose pac k. Codeine/guiaf cough syrup. Has colonoscopy on Sunday. Pt. is to notify if fever occurs or symptoms worsen. Hydration and rest. 01/20/2013 Appointment: Kimberly Villalba WPtel: [address] [place] [address] ACUTE ILLNESS 01/20/2013 Patient Education: Patient Medication Summary Completed 01/20/2013 Visit Plan: Scopalamine patch and vestib ular exercises 12/19/2012 Appointment: Lita Barakat WPtel: [address] [place] [address] ACUTE ILLNESS 12/19/2012 Patient Education: Patient Medication Summary Completed 12/19/2012 Visit Plan: Dr. Swanson consult if no impr ovement in hearing. Pt. reports he will notify if no better in one week. Willam consult for skin lesion. 10/21/2012 Appointment: Kimberly Villalba WPtel: [address] [place], [place] [phone] ACUTE ILLNESS 10/21/2012 Patient Education: Patient Medication Summary Completed 10/21/2012 Appointment: Lita Barakat WPtel: [address] [place], [place] [phone] [place] LAB 09/19/2012 Patient Education: Patient Medication Summary Completed 09/19/2012 Visit Plan: Check fasting lab in AM--CMP , Lipids, HbA1C 09/18/2012 Appointment: Lita Barakat WPtel: [address] [place], [place] [phone] FOLLOW UP 09/18/2012 Patient Education: Patient Medication Summary Completed 09/18/2012 Appointment: Lita Barakat WPtel: [address] [place], [place] [phone] appt time scheduled sooner FOLLOW UP 09/05 Visit Plan: Doxycycline and Prednisone I ncrease SVN to QID Add back Symbicort 160/4.5 2 p BID 08/28/2012 Appointment: Lita Barakat WPtel: [address] [place], [place] [phone] [place] FOLLOW UP 08/28/2012 Patient Education: Patient Medication Summary Completed 08/28/2012 Appointment: Lita Barakat WPtel: [address] [place], [place] [phone] Annual Well Visit 07/10/2012 Patient Education: Patient Medication Summary Completed 07/10/2012 Visit Plan: Finish Z-pack Add Nasonex Ad d Meclizine Vestibular exercises Continue current meds and accuchecks Check lab and fwup in 4mos 05/09/2012 Appointment: Lita Barakat WPtel: [address] [place], [place] [phone] [place] number no longer works FOLLOW UP 2 Patient Education: Patient Medication Summary Completed 05/09/2012 Appointment: Lita Barakat WPtel: [address] [place], [place] [phone] [place] LAB 05/06/2012 Patient Education: Patient Medication Summary Completed 05/06/2012 Appointment: Lita Barakat WPtel: [address] [place], [place] [phone] [place] LAB 05/02/2012 Appointment: Lita Barakat WPtel: [address] [place], [place] [phone] [place] INJECTION 02/05/2012 Patient Education: Patient Medication Summary Completed 02/05/2012 Visit Plan: cefdinir. Will focus on rest and fluids. Pt. reports he is using breathing treatments as needed. Pt. will monitor for worsening symptoms or fever. 10/02/2011 Appointment: Kimberly Villalba WPtel: [address] [place], [place] [phone] ACUTE ILLNESS 10/02/2011 Patient Education: Patient Medication Summary Completed 10/02/2011 Appointment: Lita Barakat WPtel: [address] [place], [place] [phone] [place] INJECTION 08/10/2011 Patient Education: Patient Medication Summary Completed 08/10/2011 Visit Plan: Continue current meds Restar t Advair Restart exercise Flu shot given 08/07/2011 Appointment: Lita Barakat WPtel: [address] [place], [place] [phone] [place] FOLLOW UP 08/07/2011 Patient Education: Patient Medication Summary Completed 08/07/2011 Appointment: Lita Barakat WPtel: [address] [place], [place] [phone] [place] LAB 07/26/2011 Patient Education: Patient Medication Summary Completed 07/26/2011 Visit Plan: ALEKSANDER Carmen Continue Metformin but change to BID Add Lantus 25u sc q PM BS readings in 1wk 04/03/2011 Appointment: Lita Barakat WPtel: [address] [place] [address] ACUTE ILLNESS 04/03/2011 Patient Education: Patient Medication Summary Completed 04/03/2011 Appointment: Lita Barakat WPtel: [address] [place], [place] [phone] [place] INJECTION 01/19/2011 Patient Education: Patient Medication Summary Completed 01/19/2011 Appointment: Lita Barakat WPtel: [address] [place] [address] ACUTE ILLNESS 01/18/2011 Patient Education: Patient Medication Summary Completed 01/18/2011 Appointment: Lita Barakat WPtel: [address] [place] [address] [place] INJECTION 12/21/2010 Patient Education: Patient Medication Summary Completed 12/21/2010 Appointment: Lita Barakat WPtel: [address] [place] [address] [place] FOLLOW UP 12/19/2010 Patient Education: Patient Medication Summary Completed 12/19/2010 Appointment: Lita Barakat WPtel: [address] [place] [phone] [place] LAB 12/07/2010 Patient Education: Patient Medication Summary Completed 12/07/2010 Appointment: Kimberly Villalba WPtel: [address] [place], [place] [phone] ACUTE ILLNESS 04/05/2010 Patient Education: Patient Medication Summary Completed 04/05/2010 Appointment: Lita Barakat WPtel: [address] [place] [address] [place] WORK IN 03/14/2010 Patient Education: Patient Medication Summary Completed 03/14/2010 Appointment: Lita Barakat WPtel: [address] [place] [phone] [place] LAB 03/02/2010 Visit Plan: HbA1C in 3mos. Continue Accu checks BID alternating times. Switch lexapro to celexa 01/13/2010 Appointment: Lita Barakat WPtel: [address] [place], [place] [phone] FOLLOW UP 01/13/2010 Patient Education: Patient Medication Summary Completed 01/13/2010 Appointment: Lita Barakat WPtel: [address] [place], [place] [phone] FOLLOW UP 01/11/2010 Visit Plan: Pt. will continue the Avalox and Doxycycline regimen as prescribed the previous day. He has been advised to continue inhalers, breathing treatments and oxygen therapy for at least the weekend. Moderate activity without strenuous exercise. The pt. will seek immediate re-eval if his symptoms worsen. 12/23/2009 Appointment: Kimberly Villalba WPtel: [address] [place] [address] FOLLOW UP 12/23/2009 Patient Education: Patient Medication [...] tomorrow morning. 12/22/2009 Appointment: Kimberly Villalba WPtel: [address] [place], [place] [phone] ACUTE ILLNESS 12/22/2009 Patient Education: Patient Medication Summary Completed 12/22/2009 Appointment: Kimberly Villalba WPtel: [address] [place], [place] [phone] FOLLOW UP 12/21/2009 Appointment: Lita Bar[facility]at [facility]Ptel[phone] [facility] [place] INJECTION 12/16/2009 Patient Education: Patient Medication Summary Completed 12/16/2009 Appointment: Kimberly Villalba WPtel: [address] [facility] [place] ACUTE ILLNESS 12/13/2009 Patient Education: Patient Medication Summary Completed 12/13/2009 Care Plan: X-RAY EXAM OF SHOULDER lt shoulder (pain ra diates across the shoulder) Hand carried orders to [facility] LOINC : 75859-3 Ordered 12/13/2009 Care Plan: X-RAY EXAM THORAC SPINE 2VWS Hand carried order LOINC : 72069-0 Ordered 12/13/2009 Care Plan: X-RAY EXAM RIBS UNI 2 VIEWS Posterior ribs of lt. side Pt. hand carries order to [facility] LOINC : 69528-0 Ordered 12/13/2009 Referral: José Miguel Swanson WPtel: [address] [address] [place] Referral Appointment Requested Referral: José Miguel Swanson WPtel: [address] [address] [place] Referral Appointment Requested Referral: Chandu Quarles WPtel: [address] Quarles for screening colonoscopy. P atient notified that [facility] office will book appt with him Initiated Referral: Santosh Machado WPtel: #1 [facility] [place] Referral Appointment Requested Referral: José Miguel Swanson WPtel: [address] [address] [place] Referral Initiated Referral: Lopez Chacon [address] [facility] C&D [id number] [place] Referral Initiated Referral: Demetrius Rodriguez WPtel: [address] [place] [address] [place] Referral Appointment Requested Referral: José Miguel Swanson WPtel: [address] [address] [place] Referral Appointment Requested Referral: José Miguel Swanson WPtel: [address] [facility] 3 [id number] [place] Referral Initiated Instructions Comment . Saline nasal flushes prn. Tylenol/Motr in prn headache. Notify if persists/symptoms worsening. . MRI at [facility] Hydrocodone 5.325 1 po q [...]
--- OUTSIDE RECORDS SUMMARY | 2019-12-31 00:18 | XMS REPORT | CCD ---
Author Author Leandro Barakat D.O. 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] 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.9 06/22/2016 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: [...] Fill Instructions prednisone 20 mg tablet RxNorm: 489857 1 Tablet(s) Oral two remy es a day 12/25/2019 01/01/2020 Active Levemir FlexTouch U-100 Insulin 100 unit/mL (3 mL) sub cutaneous pen RxNorm: 982626 10 Unit(s) Subcutaneous every night at bedtime 12/22/2019 N o Stop Date Active baclofen 10 mg tablet RxNorm: 838736 1 Tablet(s) Oral QPM for p ain/spasm 12/22/2019 01/21/2020 Active ipratropium 0.5 mg-albuterol 3 mg (2.5 mg base)/3 mL n ebulization soln RxNorm: 2832019 USE 1 VIAL IN NEBULIZER Q4H (THIS REPLACES ALBUTEROL S OLUTION) 11/27/2019 12/16/2019 Inactive hydrocodone 10 mg-acetaminophen 325 mg tablet RxNorm: 417461 1 Tablet(s) Oral Q4H as needed for pain 11/13/2019 No Stop Date Active Seroquel 50 mg tablet RxNorm: 861514 1 Tablet(s) Oral QPM as ne eded for sleep 10/07/2019 12/21/2019 Inactive ropinirole 4 mg tablet RxNorm: 190307 3 TABLET(S) BY [facility] DAILY AT BEDTIME FOR RESTLESS LEGS 09/29/2019 12/27/2019 Active Generic For:REQU IP 4 MG TABLET 09/29/2019 7:52:42 AM N O T I C E Last quantity doesn't match original quantity ropinirole 4 mg tablet RxNorm: 499799 3 TABLET(S) BY [facility] DAILY AT BEDTIME FOR RESTLESS LEGS 09/26/2019 09/28/2019 Inactive Generic For:REQU IP 4 MG TABLET 09/26/2019 9:08:48 AM N O T I C E Last quantity doesn't match original quantity ipratropium 0.5 mg-albuterol 3 mg (2.5 mg base)/3 mL n ebulization soln RxNorm: 0231485 USE 1 VIAL IN NEBULIZER EVERY FOUR HOURS (THIS REPLACES ALBUTEROL SOLUTION) 09/26/2019 10/15/2019 Inactive Generic For:*DUO NEB 2.5-0.5 MG/3 ML SOLN 09/26/2019 9:08:53 AM hydrocodone 10 mg-acetaminophen 325 mg tablet RxNorm: 091242 1 Tablet(s) Oral Q4H as needed for pain 09/09/2019 09/09/2019 Inactive hydrocodone 10 mg-acetaminophen 325 mg tablet RxNorm: 769499 1 Tablet(s) Oral Q4H as needed for pain 09/09/2019 09/08/2019 Inactive ondansetron HCl 4 mg tablet RxNorm: 586753 1 Tablet(s) Oral QPM for nausea 08/12/2019 10/10/2019 Inactive ipratropium 0.5 mg-albuterol 3 mg (2.5 mg base)/3 mL n ebulization soln RxNorm: 5960578 1 Unit Dose INH Q4H 08/12/2019 09/25/2019 Inactive replaces albuterol solution Augmentin 875 mg-125 mg tablet RxNorm: 180972 1 Tablet(s) Oral two times a day 08/07/2019 08/17/2019 Inactive prednisone 20 mg tablet RxNorm: 938699 1 Tablet(s) Oral QD 08/05/2008/04/2019 Inactive prednisone 20 mg tablet RxNorm: 475975 1 Tablet(s) Oral QD 08/05/2008/06/2019 Inactive Levaquin 500 mg tablet RxNorm: 893940 1 Tablet(s) Oral QD Replaces azithromycin (z-pack) 07/31/2019 08/05/2019 Inactive Levaquin 500 mg tablet RxNorm: 080208 1 Tablet(s) Oral QD Replaces azithromycin (z-pack) 07/21/2019 07/26/2019 Inactive Levaquin 500 mg tablet RxNorm: 722145 1 Tablet(s) Oral QD Replaces azithromycin (z-pack) 07/21/2019 07/20/2019 Inactive Zithromax Z-Gui 250 mg tablet RxNorm: 966307 Tablet(s) Oral 019 07/22/2019 Inactive Zithromax Z-Gui 250 mg tablet RxNorm: 991635 Tablet(s) Oral 019 07/15/2019 Inactive Symbicort 160 mcg-4.5 mcg/actuation HFA aerosol inhaler RxNo rm: 4483718 2 Puff(s) Inhalation two times a day 07/14/2019 07/14/2019 Inactive Tessalon Perles 100 mg capsule RxNorm: 625971 1 Capsule(s) Oral Q8H as needed 07/14/2019 08/06/2019 Inactive Seroquel 50 mg tablet RxNorm: 868163 1 Tablet(s) Oral QPM as ne eded for sleep 07/01/2019 10/06/2019 Inactive ondansetron HCl 4 mg tablet RxNorm: 149813 1 Tablet(s) Oral QPM for nausea 06/24/2019 07/24/2019 Inactive Seroquel 25 mg tablet RxNorm: 425900 1 Tablet(s) Oral every nig ht at bedtime 06/19/2019 06/18/2019 Inactive Seroquel 25 mg tablet RxNorm: 432598 1 Tablet(s) Oral every nig ht at bedtime 06/19/2019 06/30/2019 Inactive trazodone 150 mg tablet RxNorm: 115350 1/2 Tablet(s) PO QHS as needed for sleep 06/11/2019 06/17/2019 Inactive replaces PA on doxep in trazodone 150 mg tablet RxNorm: 064895 1/2 Tablet(s) PO QHS as needed for sleep 05/12/2019 06/11/2019 Inactive replaces PA on doxep in Vitamin D3 5,000 unit tablet RxNorm: 147720 1 Tablet(s) PO QD 05/09 No Stop Date Active magnesium oxide 400 mg (241.3 mg magnesium) tablet RxNorm: 1 91052 1 Tablet(s) PO QHS 05/09/2019 No Stop Date Active cyanocobalamin (vit B-12) 1,000 mcg/mL injection solution Rx Norm: 710191 1 injection weekly for 4 weeks 1 Milliliter(s) Inj 05/09/2019 12/21/2019 Inactive ferrous sulfate 325 mg (65 mg iron) tablet RxNorm: 611804 1 Tab let(s) PO QD 05/09/2019 12/21/2019 Inactive ropinirole 4 mg tablet RxNorm: 585644 3 TABLET(S) BY [facility] DAILY AT BEDTIME FOR RESTLESS LEGS 03/26/2019 06/23/2019 Inactive Generic For:REQU IP 4 MG TABLET 03/26/2019 11:23:36 AM N O T I C E Last quantity doesn't match original quantity pantoprazole 40 mg tablet,delayed release RxNorm: 697506 Tablet(s) TAKE 1 TABLET BY MOUTH DAILY FOR STOMACH 03/24/2019 06/21/2019 Inactive Gener ic For:PROTONIX 40MG TAB EC 01/03/2019 1:23:44 PM hydroxyzine HCl 10 mg tablet RxNorm: 962287 1 Tablet(s) PO BID as needed 03/24/2019 04/06/2019 Inactive ipratropium-albuterol 0.5 mg-3 mg(2.5 mg base)/3 mL ne bulization soln RxNorm: 6925468 1 Unit Dose INH Q4H 03/21/2019 No Stop Date Active replaces albuterol solution meclizine 12.5 mg tablet RxNorm: 187561 1 Tablet(s) PO BID as neede d 03/21/2019 12/21/2019 Inactive losartan 100 mg tablet RxNorm: 347576 1 Tablet(s) PO QD replace s lisinopril 03/13/2019 09/08/2019 Inactive fluconazole 100 mg tablet RxNorm: 100865 1 Tablet(s) PO QD 03/13/2003/19/2019 Inactive nystatin 100,000 unit/mL oral suspension RxNorm: 289796 5 Unit( s) PO QID 03/13/2019 03/26/2019 Inactive tramadol 50 mg tablet RxNorm: 374794 1 Tablet(s) PO TID as needed for pain TAKE 2 TABS OF EXTRA STRENGTH TYLENOL WITH EACH DOSE 03/10/2019 04/06/2019 Inactive Generic For:*ULTRAM 50 MG TABLET 01/15/2019 4:55:26 PM Sinemet CR 50 mg-200 mg tablet,extended release RxNorm: 8343 41 1 Tablet(s) PO TID 02/26/2019 08/24/2019 Inactive Generic For:*SIN EMET CR 50/200 TABLET SA 07/08/2018 3:09:11 PM trazodone 150 mg tablet RxNorm: 768247 1/2 Tablet(s) PO QHS as needed for sleep 02/13/2019 02/12/2019 Inactive trazodone 150 mg tablet RxNorm: 059281 1/2 Tablet(s) PO QHS as needed for sleep 02/13/2019 02/25/2019 Inactive replaces PA on doxep in doxepin 10 mg capsule RxNorm: 7531112 1-2 Capsule(s) PO QHS prn sleep 02/13/2019 02/13/2019 Inactive Novolog U-100 Insulin aspart 100 unit/mL subcutaneous soluti on RxNorm: 340839 INJECT 10 UNIT(S) SUBCUTANEOUSLY BEFORE MEALS 01/31/2019 05/30/2019 In active 01/31/2019 1:39:10 PM ipratropium-albuterol 0.5 mg-3 mg(2.5 mg base)/3 mL ne bulization soln RxNorm: 0766013 1 Unit Dose INH Q4H 01/17/2019 03/20/2019 Inactive replaces albuterol solution tramadol 50 mg tablet RxNorm: 679759 1 Tablet(s) PO TID as needed for pain TAKE 2 TABS OF EXTRA STRENGTH TYLENOL WITH EACH DOSE 01/15/2019 02/03/2019 Inactive Generic For:*ULTRAM 50 MG TABLET 01/15/2019 4:55:26 PM Sinemet CR 50 mg-200 mg tablet,extended release RxNorm: 8343 41 1 Tablet(s) PO BID 01/03/2019 02/25/2019 Inactive Generic For:*SIN EMET CR 50/200 TABLET SA 07/08/2018 3:09:11 PM losartan 100 mg tablet RxNorm: 157190 1 Tablet(s) PO QD replace s lisinopril 01/03/2019 03/12/2019 Inactive Symbicort 160 mcg-4.5 mcg/actuation HFA aerosol inhaler RxNo rm: 3864285 2 Puff(s) INH BID 01/03/2019 01/02/2019 Inactive pantoprazole 40 mg tablet,delayed release RxNorm: 886570 TAKE 1 TABLET BY MOUTH DAILY FOR STOMACH 01/03/2019 03/23/2019 Inactive Generic For:IL OTONIX 40MG TAB EC 01/03/2019 1:23:44 PM nystatin 100,000 unit/mL oral suspension RxNorm: 792922 Unit(s) 5 Unit(s) PO QID swish and spit 01/02/2019 11/11/2019 Inactive Incruse Ellipta 62.5 mcg/actuation powder for inhalation RxN orm: 2379590 1 Capsule(s) INH QD 12/25/2018 12/21/2019 Inactive Tessalon Perles 100 mg capsule RxNorm: 131620 1 Capsule(s) PO T ID for cough 12/25/2018 02/25/2019 Inactive Medrol (Gui) 4 mg tablets in a dose pack RxNorm: 206797 Tablet(s) PO Use as directed 12/23/2018 01/02/2019 Inactive Levemir FlexTouch U-100 Insulin 100 unit/mL (3 mL) sub cutaneous pen RxNorm: 718189 20 Unit(s) SQ QD with pen needles 12/13/2018 05/11/2019 Inactiv e prednisone 20 mg tablet RxNorm: 289874 1 Tablet(s) PO QD 12/12/2018 0 12/11/2018 Inactive prednisone 20 mg tablet RxNorm: 736069 1 Tablet(s) PO QD 12/12/2018 0 12/16/2018 Inactive promethazine 6.25 mg-codeine 10 mg/5 mL syrup RxNorm: 030006 5 Milliliter(s) PO QHS as needed for cough 12/09/2018 12/18/2018 Inactive cefdinir 300 mg capsule RxNorm: 958261 1 Capsule(s) PO BID 12/10/1912/18/2018 Inactive fluconazole 100 mg tablet RxNorm: 056473 1 Tablet(s) PO QD 12/06/1912/08/2018 Inactive ropinirole 4 mg tablet RxNorm: 297204 3 Tablet(s) PO QHS for re stless legs 12/04/2018 03/03/2019 Inactive Novolog U-100 Insulin aspart 100 unit/mL subcutaneous soluti on RxNorm: 681754 INJECT 10 UNIT(S) SUBCUTANEOUSLY BEFORE MEALS 12/04/2018 01/30/2019 In active 12/04/2018 10:02:42 AM nystatin 100,000 unit/mL oral suspension RxNorm: 831759 5 Unit(s) PO QID swish and spit 11/25/2018 12/18/2018 Inactive ropinirole 4 mg tablet RxNorm: 683715 3 Tablet(s) PO QHS for re stless legs 11/04/2018 12/03/2018 Inactive prednisone 20 mg tablet RxNorm: 810780 1 Tablet(s) PO BID 10/23/2018 10/29/2018 Inactive ropinirole 4 mg tablet RxNorm: 496417 3 Tablet(s) PO QHS for re stless legs 10/14/2018 11/04/2018 Inactive pantoprazole 40 mg tablet,delayed release RxNorm: 979304 1 Tablet(s) PO QD forstomach 10/10/2018 01/02/2019 Inactive Symbicort 160 mcg-4.5 mcg/actuation HFA aerosol inhaler RxNo rm: 9567847 2 Puff(s) INH BID 10/10/2018 01/03/2019 Inactive Novolog U-100 Insulin aspart 100 unit/mL subcutaneous soluti on RxNorm: 427854 INJECT 10 UNIT(S) SUBCUTANEOUSLY BEFORE MEALS 10/10/2018 12/03/2018 In active 10/10/2018 11:30:01 AM Sinemet CR 50 mg-200 mg tablet,extended release RxNorm: 8343 41 1 Tablet(s) PO BID 09/26/2018 01/03/2019 Inactive Generic For:*SIN EMET CR 50/200 TABLET SA 07/08/2018 3:09:11 PM ropinirole 4 mg tablet RxNorm: 655852 2 Tablet(s) PO QHS for re stless legs 09/18/2018 10/13/2018 Inactive metformin ER 1,000 mg tablet,extended release 24hr RxNorm: 1 182405 1 Tablet(s) PO BID 09/09/2018 12/18/2018 Inactive ropinirole 4 mg tablet RxNorm: 210453 2 Tablet(s) PO QHS for re stless legs 08/21/2018 09/17/2018 Inactive doxycycline hyclate 100 mg capsule RxNorm: 7144505 1 Capsule(s) PO BID 08/07/2018 08/13/2018 Inactive ropinirole 4 mg tablet RxNorm: 792536 1 Tablet(s) PO QHS replac es 1mg dose 08/07/2018 08/20/2018 Inactive ropinirole 2 mg tablet RxNorm: 229327 TAKE 3 TABLETS BY MOUTH DAILY AT BEDTIME DO NOT EXCEED 3 TABLETS PER DAY!!!! 07/31/2018 08/06/2018 Inactive Generic For:REQUIP 2 MG TABLET 07/30/2018 3:50:28 PM Symbicort 160 mcg-4.5 mcg/actuation HFA aerosol inhaler RxNo rm: 4870362 2 Puff(s) INH BID 07/12/2018 10/09/2018 Inactive Sinemet CR 50 mg-200 mg tablet,extended release RxNorm: 8343 41 TAKE 1 TABLET BY MOUTH TWICE DAILY 07/08/2018 09/26/2018 Inactive Generic For:*S INEMET CR 50/200 TABLET SA 07/08/2018 3:09:11 PM losartan 100 mg tablet RxNorm: 794091 1 Tablet(s) PO QD replace s lisinopril 06/17/2018 12/13/2018 Inactive Novolog U-100 Insulin aspart 100 unit/mL subcutaneous soluti on RxNorm: 339306 10 Unit(s) SQ AC 06/17/2018 10/09/2018 Inactive albuterol sulfate 2.5 mg/3 mL (0.083 %) solution for n ebulization RxNorm: 857620 Milliliter(s) INH USE 1 VIAL IN NEBULIZE R EVERY FOUR HOURS NEEDED FOR WHEEZING OR SHORTNESS OF BREATH 06/13/2018 01/16/2019 Inactive Generic For:*PROVENTIL 0.83 MG/ML SOLUTN 06/13/2013 2:04:46 PM ropinirole 2 mg tablet RxNorm: 246509 3 Tablet(s) PO QH S DO NOT EXCEED 6MG (3 TABLETS) PER DAY!!!! 06/13/2018 07/31/2018 Inactive atorvastatin 40 mg tablet RxNorm: 561941 Tablet(s) TAKE 1 TABLET BY MOUTH EVERY DAY 05/13/2018 12/18/2018 Inactive Generic For:LIPI TOR 40MG TAB 05/01/2018 8:37:31 AM Sinemet CR 50 mg-200 mg tablet,extended release RxNorm: 8343 41 1 Tablet(s) PO BID 05/08/2018 07/06/2018 Inactive Lidocaine Viscous 2 % mucosal solution RxNorm: 1343343 5 Milliliter(s) PO QID as needed 05/02/2018 08/06/2018 Inactive Diflucan 100 mg tablet RxNorm: 030318 1 Tablet(s) PO QD 05/02/2018 Inactive atorvastatin 40 mg tablet RxNorm: 978755 TAKE 1 TABLET BY MOUTH EVERY DAY 05/01/2018 05/13/2018 Inactive Generic For:LIPITOR 40MG TAB 05/01/2018 8:37:31 AM nystatin 100,000 unit/mL oral suspension RxNorm: 447657 5 Unit(s) PO QID (before meals and at bedtime) 04/24/2018 04/30/2018 Inactive Ventolin HFA 90 mcg/actuation aerosol inhaler RxNorm: 210072 2 Puff(s) INH Q4H as needed one inhaler for home and one inhaler for car 04/23/201812/18 Inactive Mucinex 600 mg tablet, extended release RxNorm: 882053 1 Tablet(s) PO BID for congestion 04/22/2018 05/21/2018 Inactive prednisone 10 mg tablet RxNorm: 211687 Tablet(s) PO as directeds 08/06/2018 Inactive ropinirole 2 mg tablet RxNorm: 339381 3 Tablet(s) PO QH S DO NOT EXCEED 6MG (3 TABLETS) PER DAY!!!! 04/09/2018 05/08/2018 Inactive gabapentin 300 mg capsule RxNorm: 800500 1-2 Capsule(s) PO QHS 02/201804/08/2018 Inactive ropinirole 2 mg tablet RxNorm: 206882 1 Tablet(s) PO QHS 03/28/2018 0 04/08/2018 Inactive gabapentin 300 mg capsule RxNorm: 416946 1-2 Capsule(s) PO QHS 02/2303/29/2018 Inactive gabapentin 300 mg capsule RxNorm: 038122 1-2 Capsule(s) PO QHS 02/2203/13/2018 Inactive gabapentin 300 mg capsule RxNorm: 932027 2 Capsule(s) PO QHS 201703/11/2018 Inactive ropinirole 2 mg tablet RxNorm: 973895 1 Tablet(s) PO QHS 02/28/2018 0 03/28/2018 Inactive ropinirole 2 mg tablet RxNorm: 213372 1 Tablet(s) PO QHS 02/28/2018 0 02/27/2018 Inactive gabapentin 300 mg capsule RxNorm: 316093 1 Capsule(s) PO QHS 201702/27/2018 Inactive pantoprazole 40 mg tablet,delayed release RxNorm: 132711 1 Tablet(s) PO QD [facility] 01/23/2018 05/22/2018 Inactive Voltaren 1 % topical gel RxNorm: 417893 1 Gram(s) TOP QID to ri ght knee 01/23/2018 02/04/2018 Inactive metformin ER 500 mg tablet,extended release 24hr RxNorm: 860 975 2 Tablet(s) PO BID 01/09/2018 12/08/2018 Inactive Requip 1 mg tablet RxNorm: 463709 1 Tablet(s) PO QHS 01/09/201802/27 Inactive prednisone 20 mg tablet RxNorm: 522006 1 Tablet(s) PO T ID for 3 days then 1 po BID for 3 days then one daily for 3 days 01/02/2018 02/03/2018 Inactiv e Levaquin 500 mg tablet RxNorm: 522475 1 Tablet(s) PO QD 01/02/2018 Inactive ProAir HFA 90 mcg/actuation aerosol inhaler RxNorm: 980678 2 Puff(s) INH Q4H as needed 12/28/2017 No Stop Date Active please switch to ventolin if insurance doesn't cover montelukast 10 mg tablet RxNorm: 315473 1 Tablet(s) PO QD 12/28/2017 02/03/2018 Inactive Levaquin 500 mg tablet RxNorm: 658260 1 Tablet(s) PO QD 12/21/2017 Inactive ProAir HFA 90 mcg/actuation aerosol inhaler RxNorm: 371233 2 Puff(s) INH Q4H as needed 12/21/2017 12/27/2017 Inactive please switch to ventolin if insurance doesn't cover doxycycline hyclate 100 mg tablet RxNorm: 694682 1 Tablet(s) PO BID 12/17/2017 12/26/2017 Inactive Levemir FlexTouch U-100 Insulin 100 unit/mL (3 mL) sub cutaneous pen RxNorm: 922542 20 Unit(s) SQ QD with pen needles---Due for labs 12/11/2017 02/03/2018 Inactive Requip 1 mg tablet RxNorm: 603646 1 Tablet(s) PO QHS 12/10/201712/09 Inactive Requip 1 mg tablet RxNorm: 726068 1 Tablet(s) PO QHS 12/10/201701/09 Inactive albuterol sulfate 2.5 mg/3 mL (0.083 %) solution for n ebulization RxNorm: 260218 Milliliter(s) INH USE 1 VIAL IN NEBULIZE R EVERY FOUR HOURS NEEDED FOR WHEEZING OR SHORTNESS OF BREATH 12/05/2017 06/13/2018 Inactive Generic For:*PROVENTIL 0.83 MG/ML SOLUTN 06/13/2013 2:04:46 PM Tudorza Pressair 400 mcg/actuation breath activated RxNorm: 3336572 1 Puff(s) INH BID 12/03/2017 12/10/2017 Inactive Levemir FlexTouch U-100 Insulin 100 unit/mL (3 mL) sub cutaneous pen RxNorm: 487394 10 Unit(s) SQ QD with pen needles---Due for labs 11/16/2017 12/10/2017 Inactive Zofran ODT 4 mg disintegrating tablet RxNorm: 193499 1 Tablet(s) PO Q4H as needed for nausea 10/17/2017 02/04/2018 Inactive Efudex 5 % topical cream RxNorm: 548465 Application TOP QD prn to precancer skin lesions 10/17/2017 02/03/2018 Inactive Sinemet CR 50 mg-200 mg tablet,extended release RxNorm: 8343 41 1 Tablet(s) PO BID 10/17/2017 02/05/2018 Inactive Sinemet CR 50 mg-200 mg tablet,extended release RxNorm: 8343 41 1 Tablet(s) PO QHS 09/25/2017 10/16/2017 Inactive gabapentin 600 mg tablet RxNorm: 609891 1 Tablet(s) PO BID 08/15/20 17 08/14/2017 Inactive gabapentin 600 mg tablet RxNorm: 160007 1 Tablet(s) PO BID 08/15/20 17 12/10/2017 Inactive Novolog U-100 Insulin aspart 100 unit/mL subcutaneous soluti on RxNorm: 283673 10 Unit(s) SQ AC 08/15/2017 02/03/2018 Inactive Novolog 100 unit/mL subcutaneous solution RxNorm: 763076 10 Uni t(s) SQ AC 08/13/2017 08/14/2017 Inactive prednisone 20 mg tablet RxNorm: 176460 2 Tablet(s) PO QD 08/02/201710/04/2016 Inactive gabapentin 600 mg tablet RxNorm: 331203 Tablet(s) 1 Tab let(s) PO QHS replaces 300mg dose 07/09/2017 08/14/2017 Inactive Breo Ellipta 100 mcg-25 mcg/dose powder for inhalation RxNor m: 1997102 1 Unit Dose INH QD 07/02/2017 08/30/2017 Inactive Tudorza Pressair 400 mcg/actuation breath activated RxNorm: 3333856 1 Puff(s) INH BID 06/18/2017 12/02/2017 Inactive gabapentin 600 mg tablet RxNorm: 849321 1 Tablet(s) PO QHS repl aces 300mg dose 06/14/2017 07/08/2017 Inactive metformin ER 1,000 mg tablet,extended release 24hr RxNorm: 1 626267 1 Tablet(s) PO BID 05/29/2017 01/08/2018 Inactive cyclobenzaprine 5 mg tablet RxNorm: 715155 1 Tablet(s) PO TID 05/2906/07/2017 Inactive metformin ER 1,000 mg tablet,extended release 24hr RxNorm: 8 76872 1 Tablet(s) PO BID 05/25/2017 05/28/2017 Inactive metformin ER 1,000 mg tablet,extended release 24hr RxNorm: 8 49944 1 Tablet(s) PO BID 05/22/2017 05/24/2017 Inactive Amaryl 2 mg tablet RxNorm: 123575 1 Tablet(s) PO BID 05/01/201702/03 Inactive glimepiride 2 mg tablet RxNorm: 276982 1 Tablet(s) PO BID 04/19/2017 02/03/2018 Inactive ferrous sulfate 325 mg (65 mg iron) tablet RxNorm: 608291 1 Tab let(s) PO QHS 04/17/2017 02/03/2018 Inactive Requip 4 mg tablet RxNorm: 703999 1 Tablet(s) PO BID 04/12/201704/11 Inactive Requip 4 mg tablet RxNorm: 461107 1 Tablet(s) PO BID 04/12/201704/15 Inactive Levemir FlexTouch 100 unit/mL (3 mL) subcutaneous insulin pe n RxNorm: 166472 10 Unit(s) SQ QD with pen needles---Due for labs 04/05/2017 11/15/2017 In active Silenor 3 mg tablet RxNorm: 834942 1 Tablet(s) PO QHS 04/05/201709/25 Inactive ropinirole 4 mg tablet RxNorm: 183147 1 Tablet(s) PO QHS 03/29/2017 0 04/01/2017 Inactive ropinirole 4 mg tablet RxNorm: 360530 1 Tablet(s) PO QHS 03/29/2017 0 03/28/2017 Inactive Requip 4 mg tablet RxNorm: 230255 1 Tablet(s) PO QHS 03/28/201704/01 Inactive gabapentin 600 mg tablet RxNorm: 221006 1 Tablet(s) PO QHS repl aces 300mg dose 03/28/2017 04/15/2017 Inactive Requip 4 mg tablet RxNorm: 217650 1 Tablet(s) PO QHS 03/23/201703/27 Inactive gabapentin 600 mg tablet RxNorm: 061047 1 Tablet(s) PO QHS 03/13/20 17 03/12/2017 Inactive gabapentin 600 mg tablet RxNorm: 045513 1 Tablet(s) PO QHS 03/13/20 17 03/27/2017 Inactive gabapentin 300 mg capsule RxNorm: 176114 1 Capsule(s) PO QPM 201603/12/2017 Inactive Generic For:NEURONTIN 300 MG CAPSULE 01/22/2017 10:10:39 AM losartan 100 mg tablet RxNorm: 537764 1 Tablet(s) PO QD replace s lisinopril 02/21/2017 06/17/2018 Inactive gabapentin 300 mg capsule RxNorm: 759586 TAKE 1 CAPSULE BY MOUT H EVERY EVENING 01/22/2017 02/21/2017 Inactive Generic For:NEURONTI N 300 MG CAPSULE 01/22/2017 10:10:39 AM gabapentin 300 mg capsule RxNorm: 659669 1 Capsule(s) PO QPM 201601/21/2017 Inactive Requip 4 mg tablet RxNorm: 091967 1 Tablet(s) PO QHS 12/21/201603/20 Inactive Effient 10 mg tablet RxNorm: 826287 1 Tablet(s) PO QD 12/12/201612/23 Inactive gabapentin 300 mg capsule RxNorm: 711003 1 Capsule(s) PO QPM 201612/03/2016 Inactive gabapentin 300 mg capsule RxNorm: 518211 1 Capsule(s) PO QPM 201612/13/2016 Inactive Requip 4 mg tablet RxNorm: 697645 1 Tablet(s) PO QHS 11/28/201612/21 Inactive atorvastatin 40 mg tablet RxNorm: 613844 Tablet(s) 1 Tablet(s) PO Q D 11/22/2016 08/18/2017 Inactive atorvastatin 40 mg tablet RxNorm: 723150 1 Tablet(s) PO QD 11/23/19 17 11/21/2016 Inactive ropinirole 1 mg tablet RxNorm: 276901 2.5 Tablet(s) PO QPM for legs/sleep 11/14/2016 11/27/2016 Inactive nystatin 100,000 unit/mL oral suspension RxNorm: 803375 5 Unit(s) PO QID swish and spit 10/31/2016 02/03/2018 Inactive fluconazole 100 mg tablet RxNorm: 283596 1 Tablet(s) PO QD 10/31/19 17 11/09/2016 Inactive doxycycline hyclate 100 mg capsule RxNorm: 9862101 1 Capsule(s) PO BID 10/03/2016 10/12/2016 Inactive Levemir FlexTouch 100 unit/mL (3 mL) subcutaneous insulin pe n RxNorm: 586605 10 Unit(s) SQ QD with pen needles 09/18/2016 04/04/2017 Inactive amitriptyline 25 mg tablet RxNorm: 386147 1 Tablet(s) P O QHS as needed for sleep 09/04/2016 10/17/2016 Inactive ropinirole 1 mg tablet RxNorm: 254697 1.5 Tablet(s) PO QPM for legs/sleep 09/04/2016 11/13/2016 Inactive amitriptyline 25 mg tablet RxNorm: 352853 1 Tablet(s) P O QHS as needed for sleep 08/22/2016 09/03/2016 Inactive clopidogrel 75 mg tablet RxNorm: 925397 1 Tablet(s) PO QD 08/10/2016 10/17/2016 Inactive Zoloft 100 mg tablet RxNorm: 112065 2 Tablet(s) PO QHS 08/10/2016 Inactive atorvastatin 40 mg tablet RxNorm: 599235 1 Tablet(s) PO QD 08/10/2010/17/2016 Inactive ropinirole 1 mg tablet RxNorm: 917169 1 Tablet(s) PO QPM for le gs/sleep 08/10/2016 09/03/2016 Inactive losartan 100 mg tablet RxNorm: 577522 1 Tablet(s) PO QD replace s lisinopril 07/20/2016 02/21/2017 Inactive Zofran 4 mg tablet RxNorm: 540947 1 Tablet(s) PO Q4H as needed for nausea 07/06/2016 10/17/2016 Inactive Flagyl 500 mg tablet RxNorm: 915157 1 Tablet(s) PO TID 07/06/2016 Inactive Plavix 75 mg tablet RxNorm: 798104 1 Tablet(s) PO QD 06/08/201607/05 Inactive isosorbide mononitrate ER 30 mg tablet,extended release 24 h r RxNorm: 486228 1 Tablet(s) PO QAM 06/08/2016 08/09/2016 Inactive atorvastatin 40 mg tablet RxNorm: 037260 1 Tablet(s) PO QD 06/08/20 16 08/09/2016 Inactive hydrochlorothiazide 12.5 mg tablet RxNorm: 999464 1 Tablet(s) PO QA M 06/08/2016 07/05/2016 Inactive metformin ER 1,000 mg tablet,extended release 24hr RxNorm: 8 60376 1 Tablet(s) PO BID 06/08/2016 09/05/2016 Inactive metoprolol tartrate 25 mg tablet RxNorm: 995560 1/2 Tablet(s) PO BI D 06/08/2016 08/09/2016 Inactive Zoloft 100 mg tablet RxNorm: 853926 2 Tablet(s) PO QHS 04/03/2016 Inactive metformin ER 1,000 mg tablet,extended release 24hr RxNorm: 8 67107 Tablet(s) 1 Tablet(s) PO QD 03/30/2016 12/18/2018 Inactive Levemir FlexTouch 100 unit/mL (3 mL) subcutaneous insulin pe n RxNorm: 259669 10 Unit(s) SQ QD 03/09/2016 03/08/2016 Inactive Levemir FlexTouch 100 unit/mL (3 mL) subcutaneous insulin pe n RxNorm: 493148 10 Unit(s) SQ QD with pen needles 03/09/2016 03/20/2016 Inactive Mobic 15 mg tablet RxNorm: 125614 1 Tablet(s) PO QD for foot pain 0 02/17/2016 03/17/2016 Inactive Zoloft 100 mg tablet RxNorm: 709714 1 1/2 Tablet(s) PO QHS 01/31/20 16 04/02/2016 Inactive omeprazole 20 mg capsule,delayed release RxNorm: 135417 TAKE 2 CAPSULES BY MOUTH EVERY DAY 01/12/2016 08/09/2016 Inactive Generic For:*CHERYL LOSEC [address] 01/12/2016 8:58:34 AM Zoloft 100 mg tablet RxNorm: 255441 1/2 Tablet(s) PO QH S for 1 week then 1 tablet po q HS 12/30/2015 01/27/2016 Inactive Ventolin HFA 90 mcg/actuation aerosol inhaler RxNorm: 229993 2 Puff(s) INH QID as needed for shortness of breath 12/30/2015 02/03/2018 Inactive [AttnRPh: Saving apply/adjudicate RxGRP:SG20 RxBIN:[id number] RxPCN: ID#:[id number]] metformin ER 1,000 mg tablet,extended release 24hr RxNorm: 8 67853 1 Tablet(s) PO QD 12/20/2015 03/18/2016 Inactive clindamycin 300 mg capsule RxNorm: 635264 1 Capsule(s) PO TID 12/0512/15/2015 Inactive mupirocin 2 % topical cream RxNorm: 529361 TOP to facial lesion s twice daily 11/15/2015 12/15/2015 Inactive cefdinir 300 mg capsule RxNorm: 083497 1 Capsule(s) PO BID 11/15/19 16 11/24/2015 Inactive Medrol (Gui) 4 mg tablets in a dose pack RxNorm: 389040 Tablet(s) PO as directed 10/11/2015 12/15/2015 Inactive albuterol sulfate 2.5 mg/3 mL (0.083 %) solution for n ebulization RxNorm: 216428 INH USE 1 VIAL IN NEBULIZER EVERY FOUR H OURS NEEDED FOR WHEEZING OR SHORTNESS OF BREATH 10/05/2015 10/04/2015 Inactive Generic For:*PRO VENTIL 0.83 MG/ML SOLUTN 06/13/2013 2:04:46 PM doxycycline hyclate 100 mg capsule RxNorm: 4931575 1 Capsule(s) PO BID 10/05/2015 10/14/2015 Inactive albuterol sulfate 2.5 mg/3 mL (0.083 %) solution for n ebulization RxNorm: 990609 Milliliter(s) INH USE 1 VIAL IN NEBULIZE R EVERY FOUR HOURS NEEDED FOR WHEEZING OR SHORTNESS OF BREATH Dx: J44.9 10/05/2015 12/05/2017 Inacti ve Generic For:*PROVENTIL 0.83 MG/ML SOLUTN 06/13/2013 2:04:46 PM albuterol sulfate 2.5 mg/3 mL (0.083 %) solution for n ebulization RxNorm: 560467 3 Milliliter(s) INH USE 1 VIAL IN NEBULI ZER EVERY FOUR HOURS NEEDED FOR WHEEZING OR SHORTNESS OF BREATH 09/06/2015 10/04/2015 Inactive Generic For:*PROVENTIL 0.83 MG/ML SOLUTN 06/13/2013 2:04:46 PM Tradjenta 5 mg tablet RxNorm: 9180982 2 Tablet(s) PO QD 07/22/2015 Inactive albuterol sulfate 2.5 mg/3 mL (0.083 %) solution for n ebulization RxNorm: 684199 3 Milliliter(s) INH USE 1 VIAL IN NEBULI ZER EVERY FOUR HOURS NEEDED FOR WHEEZING OR SHORTNESS OF BREATH 06/29/2015 09/05/2015 Inactive Generic For:*PROVENTIL 0.83 MG/ML SOLUTN 06/13/2013 2:04:46 PM albuterol sulfate 2.5 mg/3 mL (0.083 %) solution for n ebulization RxNorm: 701591 Milliliter(s) INH USE 1 VIAL IN NEBULIZE R EVERY FOUR HOURS NEEDED FOR WHEEZING OR SHORTNESS OF BREATH 06/29/2015 12/04/2017 Inactive Generic For:*PROVENTIL 0.83 MG/ML SOLUTN 06/13/2013 2:04:46 PM doxycycline hyclate 100 mg tablet RxNorm: 772534 1 Tablet(s) PO BID 06/28/2015 07/07/2015 Inactive losartan 100 mg tablet RxNorm: 199877 1 Tablet(s) PO QD -replac es lisinopril 06/14/2015 09/05/2015 Inactive metformin ER 1,000 mg tablet,extended release 24hr RxNorm: 8 15793 1 Tablet(s) PO QD 06/14/2015 09/11/2015 Inactive losartan 100 mg tablet RxNorm: 359173 1 Tablet(s) PO QD -replac es lisinopril 06/14/2015 12/10/2015 Inactive Zocor 20 mg tablet RxNorm: 917938 Tablet(s) Tablet(s) 1 Tablet(s) PO QD -needs lipids labs 06/14/2015 06/14/2015 Inactive atorvastatin 40 mg tablet RxNorm: 527287 1 Tablet(s) PO QD repl aces simvastatin 06/14/2015 12/10/2015 Inactive loratadine 10 mg tablet RxNorm: 757197 Tablet(s) 1 Tablet(s) PO QD for drainage 06/14/2015 06/07/2016 Inactive Celexa 40 mg tablet RxNorm: 279947 1 Tablet(s) PO QD TA KE ONE (1) TABLET BY MOUTH DAILY 06/14/2015 12/29/2015 Inactive Generic For:HARJINDER XA 40 MG TABLET clindamycin 300 mg capsule RxNorm: 301615 2 Capsule(s) PO BID 06/0306/12/2015 Inactive metformin ER 1,000 mg tablet,extended release 24hr RxNorm: 8 48996 1 Tablet(s) PO QD 06/03/2015 06/02/2015 Inactive metformin ER 1,000 mg tablet,extended release 24hr RxNorm: 8 45768 1 Tablet(s) PO QD 06/03/2015 06/13/2015 Inactive mupirocin 2 % topical ointment RxNorm: 754631 TOP apply to open lesion of knee twice daily 06/03/2015 01/30/2016 Inactive Zocor 20 mg tablet RxNorm: 598464 Tablet(s) 1 Tablet(s ) PO QD -needs lipids labs 05/13/2015 06/13/2015 Inactive Celexa 40 mg tablet RxNorm: 722260 1 Tablet(s) PO QD TA KE ONE (1) TABLET BY MOUTH DAILY 05/13/2015 06/13/2015 Inactive Generic For:HARJINDER XA 40 MG TABLET Zocor 20 mg tablet RxNorm: 946100 Tablet(s) 1 Tablet(s ) PO QD -needs lipids labs 02/23/2015 03/24/2015 Inactive loratadine 10 mg tablet RxNorm: 162323 1 Tablet(s) PO QD for dr saenz 12/24/2014 06/13/2015 Inactive Zocor 20 mg tablet RxNorm: 220886 1 Tablet(s) PO QD -needs lipi ds labs 11/17/2014 02/23/2015 Inactive Celexa 40 mg tablet RxNorm: 539988 1 Tablet(s) PO QD 1 Tablet(s) PO QD 1 Tablet(s) PO QD Generic OKAY 11/11/2014 05/13/2015 Inactive Zocor 20 mg tablet RxNorm: 654265 1 Tablet(s) PO QD -needs lipi ds labs 11/11/2014 11/16/2014 Inactive omeprazole 20 mg capsule,delayed release RxNorm: 698389 2 Capsule(s) PO QD TAKE 2 CAPSULES BY MOUTH DAILY 10/27/2014 04/24/2015 Inactive Shena harp For:*PRILOSEC 20 MG CAPSULE trazodone 50 mg tablet RxNorm: 647217 1 1/2 Tablet(s) PO QHS 201412/29/2015 Inactive losartan 100 mg tablet RxNorm: 806543 1 Tablet(s) PO QD -replac es lisinopril 10/26/2014 04/23/2015 Inactive Levaquin 500 mg tablet RxNorm: 229746 1 Tablet(s) PO QD 10/08/2014 Inactive Levaquin 500 mg tablet RxNorm: 997786 1 Tablet(s) PO QD 10/08/2014 Inactive Diflucan 100 mg tablet RxNorm: 019979 1 Tablet(s) PO QD 10/06/2014 Inactive DuoNeb 0.5 mg-3 mg(2.5 mg base)/3 mL solution for nebulizati on RxNorm: 2103137 3 Milliliter(s) INH QID 09/23/2014 08/09/2016 Inactive Ventolin HFA 90 mcg/actuation aerosol inhaler RxNorm: 733270 2 Puff(s) INH QID as needed for shortness of breath 09/21/2014 12/29/2015 Inactive [AttnRPh: Saving apply/adjudicate RxGRP:SG20 RxBIN:[id number] RxPCN: ID#:[id number]] promethazine-codeine 6.25 mg-10 mg/5 mL syrup RxNorm: 577298 1 Teaspoon(s) PO QHS as needed for cough 09/08/2014 09/20/2014 Inactive prednisone 20 mg tablet RxNorm: 427017 1 Tablet(s) PO BID 09/02/2014 09/08/2014 Inactive promethazine-codeine 6.25 mg-10 mg/5 mL syrup RxNorm: 353069 1 Teaspoon(s) PO Q4H 09/02/2014 09/20/2014 Inactive doxycycline monohydrate 100 mg capsule RxNorm: 818975 1 Capsule (s) PO BID 09/02/2014 09/07/2014 Inactive Tessalon Perles 100 mg capsule RxNorm: 927526 1 Capsule (s) PO TID as needed for cough 08/31/2014 09/20/2014 Inactive Actos 15 mg tablet RxNorm: 850647 1 Tablet(s) PO QAM 1 Tablet(s ) PO QAM 08/26/2014 09/20/2014 Inactive loratadine 10 mg tablet RxNorm: 676927 1 Tablet(s) PO QD for dr saenz 08/26/2014 10/26/2014 Inactive Zithromax 500 mg tablet RxNorm: 321932 1 Tablet(s) PO QD 08/25/2014 1 11/01/2013 Inactive Zithromax 500 mg tablet RxNorm: 508836 1 Tablet(s) PO QD 08/25/2014 1 10/25/2013 Inactive Trazadone 75mg Tablet RxNorm: 1 Tablet(s) PO QHS 08/10/20142018 Inactive Zocor 20 mg tablet RxNorm: 576467 1 Tablet(s) PO QD 08/10/20142014 Inactive Trazadone 75mg Tablet RxNorm: 1 Tablet(s) PO QHS as need ed for sleep 08/10/2014 10/08/2014 Inactive Celexa 40 mg tablet RxNorm: 120859 1 Tablet(s) PO QD 1 Tablet(s) PO QD 1 Tablet(s) PO QD Generic OKAY 06/09/2014 10/06/2014 Inactive Actos 15 mg tablet RxNorm: 520719 1 Tablet(s) PO QAM 05/12/201408/26 Inactive lisinopril 20 mg tablet RxNorm: 649476 1 Tablet(s) PO QD 05/12/2014 0 10/26/2014 Inactive TAKE ONE TABLET BY MOUTH EVERY DAY;Gener ic For:*PRINIVIL 20 MG TABLET [AttnRPh: Saving apply/adjudicate RxGRP:SG20 RxBIN:[id number] RxPCN: ID#:[id number]] hydrocodone 5 mg-acetaminophen 325 mg tablet RxNorm: 552559 1 Tablet(s) PO TID as needed for pain for severe pain 04/30/2014 08/09/2014 Inactive hydrocodone 5 mg-acetaminophen 325 mg tablet RxNorm: 001165 1 Tablet(s) PO TID as needed for pain for severe pain 04/17/2014 04/29/2014 Inactive doxycycline hyclate 100 mg capsule RxNorm: 631681 1 Capsule(s) PO BID 03/05/2014 03/04/2014 Inactive doxycycline hyclate 100 mg capsule RxNorm: 826689 1 Capsule(s) PO BID 03/05/2014 03/14/2014 Inactive albuterol sulfate 2.5 mg/3 mL (0.083 %) solution for n ebulization RxNorm: 863041 Milliliter(s) INH USE 1 VIAL IN NEBULIZE R EVERY FOUR HOURS NEEDED FOR WHEEZING OR SHORTNESS OF BREATH 03/02/2014 06/29/2015 Inactive Generic For:*PROVENTIL 0.83 MG/ML SOLUTN 06/13/2013 2:04:46 PM Celexa 40 mg tablet RxNorm: 594412 1 Tablet(s) PO QD 1 Tablet(s) PO QD replaces lexapro. Generic OKAY 01/13/2014 06/09/2014 Inactive Actos 15 mg tablet RxNorm: 362261 1 Tablet(s) PO QAM 01/07/201405/12 Inactive lisinopril 20 mg tablet RxNorm: 434148 1 Tablet(s) PO QD 12/08/2013 0 05/12/2014 Inactive TAKE ONE TABLET BY MOUTH EVERY DAY;Gener ic For:*PRINIVIL 20 MG TABLET cefdinir 300 mg capsule RxNorm: 419976 2 Capsule(s) PO QD 11/10/2013 08/09/2014 Inactive cefdinir 300 mg capsule RxNorm: 204569 2 Capsule(s) PO QD 10/09/2013 10/15/2013 Inactive Actos 15 mg tablet RxNorm: 045106 1 Tablet(s) PO QAM 10/09/201301/06 Inactive doxycycline hyclate 100 mg capsule RxNorm: 5787687 1 Capsule(s) PO Q12H 09/18/2013 09/27/2013 Inactive omeprazole 20 mg capsule,delayed release RxNorm: 687667 2 Capsule(s) PO QD TAKE 2 CAPSULES BY MOUTH DAILY 09/03/2013 03/01/2014 Inactive Generi c For:*PRILOSEC [address] Celexa 40 mg tablet RxNorm: 971945 1 Tablet(s) PO QD re places lexapro. Generic OKAY 09/03/2013 01/13/2014 Inactive Symbicort 160 mcg-4.5 mcg/actuation HFA aerosol inhaler RxNo rm: 5452862 2 Puff(s) INH BID 08/13/2013 03/23/2014 Inactive metformin 1,000 mg tablet RxNorm: 296656 1 Tablet(s) PO BID 013 08/12/2013 Inactive TAKE ONE TABLET BY MOUTH TWI CE DAILY;Generic For:GLUCOPHAGE 1,000 MG TABLET 08/27/12 Thank you Actos 15 mg tablet RxNorm: 240564 1 Tablet(s) PO QAM 06/23/201310/09 Inactive lisinopril 20 mg tablet RxNorm: 410570 1 Tablet(s) PO QD 06/23/2013 0 12/08/2013 Inactive TAKE ONE TABLET BY MOUTH EVERY DAY;Gener ic For:*PRINIVIL 20 MG TABLET albuterol sulfate 2.5 mg/3 mL (0.083 %) solution for n ebulization RxNorm: 707076 Solution for Nebulization INH USE 1 VIAL IN NEBULIZER EVERY FOUR HOURS NEEDED FOR WHEEZING OR SHORTNESS OF BREATH 06/16/2013 03/01/2014 Inactive Generic For:*PROVENTIL 0.83 MG/ML SOLUTN 06/13/2013 2:04:46 PM prednisone 10 mg tablet RxNorm: 327130 1 Tablet(s) PO BID 04/09/2013 04/13/2013 Inactive AndroGel 1.25 gram/actuation (1%) Transdermal Gel Pump RxNorm: 2 48275 TD 04/09/2013 08/09/2014 Inactive APPLY 4 PUMPS OF GEL AT BEDTIME DIRECTED;WC (Appended: Controlled substance eRx refill - RxReferenceNumber: [id number]) azithromycin 250 mg tablet RxNorm: 829901 2 Tablet(s) PO QD 013 04/16/2013 Inactive Amaryl 2 mg tablet RxNorm: 779480 1 Tablet(s) PO BID N eeds appt in 1 month (around March 21) 02/18/2013 08/12/2013 Inactive Amaryl 2 mg tablet RxNorm: 979806 1 Tablet(s) PO BID 02/18/201302/17 Inactive metformin 1,000 mg tablet RxNorm: 869354 1 Tablet(s) PO BID 013 07/27/2013 Inactive TAKE ONE TABLET BY MOUTH TWI CE DAILY;Generic For:GLUCOPHAGE 1,000 MG TABLET 08/27/12 Thank you Actos 15 mg tablet RxNorm: 520379 1 Tablet(s) PO QAM 02/04/201306/03 Inactive albuterol sulfate 2.5 mg/3 mL (0.083 %) Neb Solution RxNorm: 365739 1 Unit Dose INH Q4H prn wheezing or shortness of breath 01/30/2013 06/15/2013 Inac tive Medrol (Gui) 4 mg tablets in a dose pack RxNorm: 804452 Tablet(s) PO as directed 01/20/2013 07/15/2013 Inactive cefdinir 300 mg capsule RxNorm: 608064 1 Capsule(s) PO BID anti biotic 01/20/2013 01/29/2013 Inactive lisinopril 20 mg tablet RxNorm: 640816 Tablet(s) PO 01/13/20132012 Inactive TAKE ONE TABLET BY MOUTH EVERY DAY;Gener ic For:*PRINIVIL 20 MG TABLET citalopram 40 mg tablet RxNorm: 396033 Tablet(s) PO 01/13/20132013 Inactive TAKE ONE (1) TABLET BY MOUTH DAILY;Gener ic For:CELEXA 40 MG TABLET omeprazole 20 mg capsule,delayed release RxNorm: 991120 Capsule(s) PO TAKE 2 CAPSULES BY MOUTH DAILY 11/15/2012 09/03/2013 Inactive Generic For:*PRILOSEC [address] amoxicillin 875 mg tablet RxNorm: 912639 1 Tablet(s) PO BID 013 10/28/2012 Inactive Actos 30 mg tablet RxNorm: 331662 1 Tablet(s) PO QD 09/23/20122011 Inactive Actos 15 mg tablet RxNorm: 088679 1 Tablet(s) PO QAM 09/23/201209/22 Inactive Actos 15 mg tablet RxNorm: 836558 1 Tablet(s) PO QAM 09/23/201202/04 Inactive prednisone 20 mg tablet RxNorm: 937341 1 Tablet(s) PO BID 08/28/2012 09/03/2012 Inactive doxycycline hyclate 100 mg tablet RxNorm: 6838372 1 Tablet(s) PO BI D 08/28/2012 09/06/2012 Inactive metformin 1,000 mg tablet RxNorm: 098185 Tablet(s) PO 08/27/201201/22 Inactive TAKE ONE TABLET BY MOUTH TWICE DAILY;Gen joshua For:GLUCOPHAGE 1,000 MG TABLET 08/27/12 Thank you citalopram 40 mg tablet RxNorm: 047659 Tablet(s) PO 07/30/20122012 Inactive TAKE ONE (1) TABLET BY MOUTH DAILY;Gener ic For:CELEXA 40 MG TABLET lisinopril 20 mg tablet RxNorm: 534147 Tablet(s) PO 07/30/20122012 Inactive TAKE ONE TABLET BY MOUTH EVERY DAY;Gener ic For:*PRINIVIL 20 MG TABLET AndroGel 1.25 gram/actuation (1%) Transdermal Gel Pump RxNor m: [id number] Gel in Metered-Dose Pump TD 07/09/2012 04/08/2013 Inactive APPLY 4 PUM PS OF GEL AT BEDTIME DIRECTED;WC (Appended: Controlled substance eRx refill - RxReferenceNumber: [id number]) citalopram 40 mg tablet RxNorm: 757277 Tablet(s) PO 07/01/20122011 Inactive TAKE ONE (1) TABLET BY MOUTH DAILY;Gener ic For:CELEXA 40 MG TABLET metformin 1,000 mg tablet RxNorm: 438307 1 Tablet(s) PO BID 012 08/25/2012 Inactive TAKE 1 TABLET BY MOUTH TWICE DAILY;Generic For:GLUCOPHAGE 1,000 MG TABLET meclizine 25 mg Tab RxNorm: 490353 1 Tablet(s) PO QID prn dizziness 05/09/2012 05/18/2012 Inactive lisinopril 20 mg tablet RxNorm: 005457 Tablet(s) PO QD 04/22/2012 Inactive TAKE ONE (1) TABLET BY MOUTH DAILY;Gener ic For:*PRINIVIL 20 MG TABLET metformin 1,000 mg tablet RxNorm: 870674 Tablet(s) PO 03/19/201212/2011 Inactive TAKE 1 TABLET BY MOUTH TWICE DAILY;Gener ic For:GLUCOPHAGE 1,000 MG TABLET cefdinir 300 mg Cap RxNorm: 584731 1 Capsule(s) PO BID 11/28/2011 Inactive cefdinir 300 mg Cap RxNorm: 792988 1 Capsule(s) PO BID 11/01/2011 Inactive citalopram 40 mg tablet RxNorm: 158488 Tablet(s) PO 10/30/20112011 Inactive TAKE ONE (1) TABLET BY MOUTH DAILY;Gener ic For:CELEXA 40 MG TABLET cefdinir 300 mg Cap RxNorm: 329989 1 Capsule(s) PO BID 10/02/2011 Inactive metformin 1,000 mg Tab RxNorm: 244810 1 Tablet(s) PO BID 09/28/2011 0 01/25/2012 Inactive citalopram 40 mg Tab RxNorm: 270198 1 Tablet(s) PO QD 09/28/201111/2011 Inactive omeprazole 20 mg capsule,delayed release RxNorm: 528052 2 Capsu le(s) PO QD 09/28/2011 03/25/2012 Inactive lisinopril 20 mg Tab RxNorm: 269416 Tablet(s) PO 08/21/2011 04/21/2012 Inactive TAKE ONE (1) TABLET BY MOUTH DAILY;Generic For:*PRINIVIL 20 MG TABLET AndroGel 1.25 gram/actuation (1%) Transdermal Gel Pump RxNor m: [id number] Gel in Metered-dose Pump TD 08/21/2011 07/09/2012 Inactive APPLY 4 PUM PS OF GEL AT BEDTIME DIRECTED (Appended: Controlled substance eRx refill - RxReferenceNumber: [id number]) Lantus Solostar 100 unit/mL (3 mL) Sub-Q Insulin Pen RxNorm: 200114 30 Unit(s) SQ QD 06/20/2011 05/08/2012 Inactive Lantus Solostar 100 unit/mL (3 mL) Sub-Q Insulin Pen RxNorm: 082872 30 Unit(s) SQ QD 06/19/2011 06/19/2011 Inactive metformin 1,000 mg Tab RxNorm: 389992 1 Tablet(s) PO BID 05/12/2011 1 11/09/2010 Inactive citalopram 40 mg Tab RxNorm: 265050 1 Tablet(s) PO QD 03/06/201105/2011 Inactive metformin 1,000 mg Tab RxNorm: 716288 1 Tablet(s) PO BID 12/27/2010 0 04/25/2011 Inactive lisinopril 20 mg Tab RxNorm: 254143 Tablet(s) PO TAKE 1 TABLET BY MOUTH EVERY DAY;Generic For:*PRINIVIL 20 MG TABLET 12/26/2010 08/20/2011 Inactive Ceftin 500 mg Tab RxNorm: 869309 1 Tablet(s) PO BID 12/19/20102010 Inactive omeprazole 20 mg Cap, Delayed Release RxNorm: 659906 2 Capsule( s) PO QD 09/13/2010 03/11/2011 Inactive Byetta 10 mcg/0.04 mL per dose Sub-Q Pen Injector RxNorm: 84 7913 1 Unit Dose SQ BID 09/07/2010 10/06/2010 Inactive Celexa 40 mg tablet RxNorm: 012549 1 Tablet(s) PO QD re places lexapro. Generic OKAY 08/09/2010 02/04/2011 Inactive Actos 30 mg Tab RxNorm: 714388 1 Tablet(s) PO QD 08/09/2010 04/02/2011 Inactive lisinopril 20 mg Tab RxNorm: 915553 1 Tablet(s) PO QD 08/09/201011/22 Inactive metformin 1,000 mg Tab RxNorm: 374482 1 Tablet(s) PO BID 08/09/2010 0 12/06/2010 Inactive Metformin 1,000 mg Tab RxNorm: 048981 1 Tablet(s) PO BID 04/26/2010 0 04/25/2010 Inactive metformin 1,000 mg Tab RxNorm: 892331 1 Tablet(s) PO BID 04/26/2010 1 Inactive Lomotil 2.5 mg-0.025 mg Tab RxNorm: 7011825 1 Tablet(s) PO TID 1-2 TABS THREE TIMES DAILY 04/05/2010 04/07/2010 Inactive Mupirocin 2 % Topical Cream RxNorm: 950763 TOP BID 04/05/201003/25 Inactive lisinopril 20 mg Tab RxNorm: 128879 1 Tablet(s) PO QD 03/29/201010/2009 Inactive Actos 30 mg Tab RxNorm: 114967 1 Tablet(s) PO QD 03/29/2010 07/26/2010 Inactive Lisinopril 20 mg Tab RxNorm: 663057 1 Tablet(s) PO QD 02/27/201001/2010 Inactive Actos 30 mg Tab RxNorm: 849681 1 Tablet(s) PO QD 02/14/2010 03/28/2010 Inactive Celexa 40 mg Tab RxNorm: 309805 1 Tablet(s) PO QD replaces lexapro 01/13/2010 07/11/2010 Inactive Cyclobenzaprine 10 mg Tab RxNorm: 376764 1 Tablet(s) PO TID prn spasm 12/23/2009 01/21/2010 Inactive Cyclobenzaprine 10 mg Tab RxNorm: 432183 1 Tablet(s) PO TID 010 12/22/2009 Inactive Hydrocodone-Acetaminophen 7.5 mg-750 mg Tab RxNorm: 447519 1 Ta blet(s) PO Q4-6H 12/23/2009 12/22/2009 Inactive aspirin 81 mg tablet RxNorm: 435867 1 Tablet(s) PO QD No Start Date Active isosorbide mononitrate ER 60 mg tablet,extended release 24 h r RxNorm: 450075 1 Tablet(s) PO QD No Start Date Active amlodipine 5 mg tablet RxNorm: 273260 1 Tablet(s) PO QD No Start Date Active Vitamin D3 1,000 unit tablet RxNorm: 455230 3 Tablet(s) PO QD No St art Date 10/26/2014 Inactive Lexapro 20 mg Tab RxNorm: 855400 1 Tablet(s) PO QD No Start Date 12/24 Inactive loperamide 2 mg tablet RxNorm: 683868 Tablet(s) PO PRN No Start Date 06/07/2016 Inactive Levemir FlexTouch U-100 Insulin 100 unit/mL (3 mL) sub cutaneous pen RxNorm: 922996 22 Unit(s) SQ QD No Start Date 12/21/2019 Inactive Janumet 50 mg-1,000 mg Tab RxNorm: 496558 1 Tablet(s) PO BID No Sta rt Date 01/12/2010 Inactive Levemir U-100 Insulin 100 unit/mL subcutaneous solution RxNo rm: 654575 10 Unit(s) SQ QHS No Start Date 12/08/2018 Inactive Medrol (Gui) 4 mg tablets in a dose pack RxNorm: 539152 Tablet(s) PO Use as directed No Start Date 12/22/2018 Inactive aspirin 325 mg tablet RxNorm: 743299 1 Tablet(s) PO QD No Start Date 08/09/2016 Inactive Efudex 5 % Topical Cream RxNorm: 659578 Application TOP QD prn fto skin lesion No Start Date 08/12/2013 Inactive nitroglycerin 0.4 mg sublingual tablet RxNorm: 208866 Tablet(s) SL as needed No Start Date 12/18/2018 Inactive levofloxacin 500 mg tablet RxNorm: 345257 1 Tablet(s) PO QD No Star t Date 08/06/2018 Inactive ferrous sulfate 325 mg (65 mg iron) tablet RxNorm: 458800 1 Tab let(s) PO QHS No Start Date 04/16/2017 Inactive fluorouracil 5 % topical cream RxNorm: 492765 1 TOP No Start James e 08/06/2018 Inactive Vitamin D3 1,000 unit capsule RxNorm: 322672 1 Capsule(s) PO QD No Start Date 02/03/2018 Inactive Hydrocodone-Acetaminophen 7.5 mg-750 mg Tab RxNorm: 448431 1 Ta blet(s) PO PRN No Start Date 08/09/2014 Inactive pantoprazole 40 mg tablet,delayed release RxNorm: 465413 1 Tabl et(s) PO QD No Start Date 01/22/2018 Inactive omeprazole 20 mg Cap, Delayed Release RxNorm: 942585 2 Capsule( s) PO QD No Start Date 09/12/2010 Inactive DuoNeb 0.5 mg-3 mg(2.5 mg base)/3 mL solution for nebulizati on RxNorm: 6448192 INH Q4H as needed No Start Date 10/22/2018 Inactive Lyrica 75 mg capsule RxNorm: 383762 2 Capsule(s) PO QHS No Start Da te 03/09/2019 Inactive isosorbide mononitrate ER 30 mg tablet,extended release 24 h r RxNorm: 294670 1 Tablet(s) PO QD No Start Date 12/08/2018 Inactive Tradjenta 5 mg tablet RxNorm: 3289714 1 Tablet(s) PO QD No Start Da te 08/09/2016 Inactive Tudorza Pressair 400 mcg/actuation breath activated RxNorm: 5186656 1 Puff(s) INH BID No Start Date 06/17/2017 Inactive Lantus Solostar 100 unit/mL (3 mL) Sub-Q Insulin Pen RxNorm: 410177 30 Unit(s) SQ QD No Start Date 06/18/2011 Inactive Requip 4 mg tablet RxNorm: 022271 1 Tablet(s) PO BID No Start Date Inactive Symbicort 160 mcg-4.5 mcg/actuation HFA aerosol inhaler RxNo rm: 9971369 2 Puff(s) INH BID No Start Date 07/11/2018 Inactive atorvastatin 40 mg tablet RxNorm: 002063 1 Tablet(s) PO QD No Start Date 12/18/2018 Inactive tramadol 50 mg tablet RxNorm: 432154 1 Tablet(s) PO TID as needed for pain (take alone with two extra strength tylenol) No Start Date 01/16/2019 Inactive Symbicort 160 mcg-4.5 mcg/actuation HFA aerosol inhaler RxNo rm: 6565110 2 Puff(s) INH BID No Start Date 08/12/2013 Inactive Vitamin D3 5,000 unit tablet RxNorm: 986052 1 Tablet(s) PO QD No St art Date 05/08/2019 Inactive albuterol sulfate 2.5 mg/3 mL (0.083 %) Neb Solution RxNorm: 011749 1 Unit Dose INH Q4H prn wheezing or shortness of breath No Start Date 01/29/2013 Inac tive Ranexa 500 mg tablet,extended release RxNorm: 827916 1 Tablet(s ) PO BID No Start Date 02/03/2018 Inactive Advair Diskus 500 mcg-50 mcg/dose powder for inhalation RxNo rm: 4009961 1 Puff(s) INH BID No Start Date 08/09/2016 Inactive clopidogrel 75 mg tablet RxNorm: 652126 1 Tablet(s) PO QD No Start Date 05/01/2018 Inactive metformin 1,000 mg Tab RxNorm: 262690 1 Tablet(s) PO BID No Start D ate 08/12/2013 Inactive Silenor 3 mg tablet RxNorm: 350370 1 Tablet(s) PO QHS No Start Date 0 04/04/2017 Inactive Medrol (Gui) 4 mg tablets in a dose pack RxNorm: 077029 Tablet(s) PO as directed No Start Date 01/19/2013 Inactive Requip 4 mg tablet RxNorm: 393704 1 Tablet(s) PO BID No Start Date Inactive clopidogrel 75 mg tablet RxNorm: 321056 1 Tablet(s) PO QD No Start Date 02/03/2018 Inactive Tradjenta 5 mg tablet RxNorm: 7851210 1 Tablet(s) PO QD No Start Da te 02/03/2018 Inactive ProAir HFA 90 mcg/Actuation Aerosol Inhaler RxNorm: 568394 2 Pu ff(s) INH PRN No Start Date 07/09/2012 Inactive Tessalon Perles 100 mg capsule RxNorm: 402530 1 Capsule (s) PO TID as needed for cough No Start Date 08/30/2014 Inactive ferrous sulfate 325 mg (65 mg iron) tablet RxNorm: 214849 1 Tab let(s) PO QD No Start Date 05/08/2019 Inactive pioglitazone 15 mg tablet RxNorm: 043571 1 Tablet(s) PO QD No Start Date 09/20/2014 Inactive Lexapro Oral RxNorm: Oral No Start Date 12/13/2009 Inactive Breo Ellipta 100 mcg-25 mcg/dose powder for inhalation RxNor m: 5971808 1 Puff(s) INH BID No Start Date 05/31/2015 Inactive Tylenol Extra Strength 500 mg tablet RxNorm: 227424 2 T ablet(s) PO QHS along with ropironole No Start Date 12/18/2018 Inactive tramadol 50 mg tablet RxNorm: 706973 1 Tablet(s) PO QID as need ed for pain No Start Date 12/24/2018 Inactive cyclobenzaprine 10 mg Tab RxNorm: 838295 Oral No Start Date 12/22 Inactive Levemir FlexTouch 100 unit/mL (3 mL) subcutaneous insulin pe n RxNorm: 940534 10 Unit(s) SQ QD No Start Date 03/08/2016 Inactive amlodipine 5 mg tablet RxNorm: 238343 1 Tablet(s) PO QD No Start Da te 08/09/2016 Inactive Novolog 100 unit/mL subcutaneous solution RxNorm: 885720 10 Uni t(s) SQ AC No Start Date 08/12/2017 Inactive Levemir FlexTouch 100 unit/mL (3 mL) subcutaneous insulin pe n RxNorm: 224873 25 Unit(s) SQ QPM No Start Date 08/06/2018 Inactive Farxiga 5 mg tablet RxNorm: 9876377 1 Tablet(s) PO QD No Start Date 0 10/05/2014 Inactive DuoNeb 0.5 mg-3 mg(2.5 mg base)/3 mL solution for nebulizati on RxNorm: 5795418 inhalation No Start Date 09/23/2014 Inactive Doxycycline 100 mg Cap RxNorm: 800076 1 Capsule(s) PO BID No Start Date 12/18/2010 Inactive Vitamin B12 1000mcg Tablet RxNorm: 1 Tablet(s) PO QD No Start Date 02/03/2018 Inactive Hydrocodone-Acetaminophen 7.5 mg-750 mg Tab RxNorm: 923297 1 Ta blet(s) PO Q6-8H No Start Date 12/22/2009 Inactive Xigduo XR 5 mg-1,000 mg tablet,extended release RxNorm: 1593 833 1 Tablet(s) PO QD No Start Date 05/31/2015 Inactive cyanocobalamin (vit B-12) 1,000 mcg/mL injection solution Rx Norm: 833069 1 injection weekly for 4 weeks 1 Milliliter(s) Inj No Start Date 05/08/2019 Inactive AndroGel 1.25 g/Actuation (1%) Transdermal Gel Pump RxNorm: 9782964 TD Apply 4pumps daily No Start Date 08/21/2011 Inactive Actoplus MET 15 mg-850 mg Tab RxNorm: 579377 1 Tablet(s) PO BID No Start Date 12/18/2010 Inactive Amaryl 2 mg tablet RxNorm: 172446 1 Tablet(s) PO BID No Start Date Inactive Levemir FlexTouch 100 unit/mL (3 mL) subcutaneous insulin pe n RxNorm: 368466 20 Unit(s) SQ QD No Start Date 06/12/2016 Inactive Symbicort 160 mcg-4.5 mcg/actuation HFA aerosol inhaler RxNo rm: 6632538 2 Puff(s) INH BID No Start Date 02/03/2018 Inactive Symbicort 160 mcg-4.5 mcg/Actuation Inhalation HFA Aer osol Inhaler RxNorm: 4128596 2 INH BID No Start Date 12/18/2010 Inactive Farxiga 5 mg tablet RxNorm: 2386090 1 Tablet(s) PO QD No Start Date 0 03/01/2015 Inactive magnesium oxide 400 mg (241.3 mg magnesium) tablet RxNorm: 1 65894 1 Tablet(s) PO QHS No Start Date 05/08/2019 Inactive Tradjenta 5 mg tablet RxNorm: 6392370 2 Tablet(s) PO QD No Start Da te 07/21/2015 Inactive Levemir FlexTouch U-100 Insulin 100 unit/mL (3 mL) sub cutaneous pen RxNorm: 782485 40 Unit(s) SQ QD No Start Date 08/06/2018 Inactive Sinemet CR 50 mg-200 mg tablet,extended release RxNorm: 8343 41 1 Tablet(s) PO QHS No Start Date 09/24/2017 Inactive metoprolol tartrate 25 mg tablet RxNorm: 642261 1/2 Tablet(s) P O BID No Start Date 02/03/2018 Inactive Requip 4 mg tablet RxNorm: 014282 1 Tablet(s) PO QHS No Start Date Inactive Ventolin HFA 90 mcg/actuation aerosol inhaler RxNorm: 053099 2 Puff(s) INH Q4H as needed No Start Date 04/22/2018 Inactive B12 5,000 mcg-100 mcg sublingual lozenge RxNorm: 197900 IM as d irected No Start Date 05/08/2019 Inactive ropinirole 1 mg tablet RxNorm: 867788 1 Tablet(s) PO QHS No Start D ate 08/06/2018 Inactive Percocet 5 mg-325 mg tablet RxNorm: 3322687 1 Tablet(s) PO Q4H as needed for pain (Dr Rizzo) No Start Date 10/22/2018 Inactive hydrocodone 5 mg-acetaminophen 325 mg tablet RxNorm: 215148 1 Tablet(s) PO TID as needed for pain for severe pain No Start Date 04/16/2014 Inactive scopolamine 1.5 mg 72 hr Transderm Patch RxNorm: 025359 Application TD Q72H for dizziness No Start Date 08/12/2013 Inactive ipratropium-albuterol 0.5 mg-3 mg(2.5 mg base)/3 mL ne bulization soln RxNorm: 6856384 1 Unit Dose INH Q4H No Start Date 01/16/2019 Inactive Medication Administered No Medication Administered data Immunizations Vaccine Codes Date Status Influenza CVX: 135 08/07/2019 Complete Pneumococcal CVX: 33 07/24/2017 Complete Influenza CVX: 135 06/13/2016 Complete Pneumococcal CVX: 133 06/13/2016 Complete Influenza CVX: 141 07/10/2012 Pneumovax Unknown 07/10/2012 Results Observation Observation Code Item Item Code Result Date S vic Location COMPLETE BLOOD COUNT 6981285 WBC 5.5 10e9/L 06/17/20 19 Unknown COMPLETE BLOOD COUNT [id number] RBC 3.92 10e12/L 2018 Unknown COMPLETE BLOOD COUNT 6916291 HEMOGLOBIN 10.9 g/dL 06/17/20 19 Unknown COMPLETE BLOOD COUNT 6677899 HEMATOCRIT 34.8 % 06/17/20 19 Unknown COMPLETE BLOOD COUNT 0322667 MCV 88.8 fL 9 Unknown COMPLETE BLOOD COUNT 4369715 MCH 27.8 pg 9 Unknown COMPLETE BLOOD COUNT 9566172 MCHC 31.3 g/dL 9 Unknown COMPLETE BLOOD COUNT 2499471 PLATELET COUNT 239 10e9/L Unknown COMPLETE BLOOD COUNT 4553587 Mean Plt Volume 10.0 fL Unknown COMPLETE BLOOD COUNT 7322406 Neut Auto 68.0 % 9 Unknown COMPLETE BLOOD COUNT 4344180 Lymph Auto 14.8 % 06/17/20 19 Unknown COMPLETE BLOOD COUNT 6860454 [place] Auto 13.1 % 9 Unknown COMPLETE BLOOD COUNT 8914900 RDW 14.7 % 9 Unknown COMPLETE BLOOD COUNT 7803666 Eos Auto 3.6 % 9 Unknown COMPLETE BLOOD COUNT 6411906 Baso Auto 0.5 % 9 Unknown COMPLETE BLOOD COUNT 0044313 Neutrophil Abs 3.74 10e9/L Unknown COMPLETE BLOOD COUNT 2388008 Lymphocyte Abs 0.81 10e9/L Unknown COMPLETE BLOOD COUNT 0756223 Monocyte Abs 0.72 10e9/L 05/26 Unknown COMPLETE BLOOD COUNT 6966559 Eosinophil Abs 0.20 10e9/L Unknown COMPLETE BLOOD COUNT 1110358 RDW-SD 46.4 fL 9 Unknown COMPLETE BLOOD COUNT 5514838 Basophil Abs 0.03 10e9/L 05/26 Unknown IRON 37761 Iron 36 ug/dL 06/17/2019 Unknown VITAMIN B 12 49944 VITAMIN B12 540 pg/mL 06/17/2019 Unkn own GFR CALC 1878011 GFR Non Afr Amr 59 mL/min 06/17/2019 Unk nown GFR CALC 5653770 GFR Afr Amr >60 mL/min 06/17/2019 Unknow n ERYTHROCYTE SEDIMENTATION RATE 38580 Sed Rate 34 mm/hr 06/17/2019 Unknown THYROID STIMULATING HORMONE 19197 TSH 2.217 uIU/mL 06/17/2019 Unknown COMPREHENSIVE METABOLIC 17812 AST 12 U/L 2018 Unknown COMPREHENSIVE METABOLIC 09683 ALT 11 U/L 2018 Unknown COMPREHENSIVE METABOLIC 91401 BUN 17 mg/dL 2018 Unknown COMPREHENSIVE METABOLIC 66628 ALBUMIN 3.9 g/dL 2018 Unknown COMPREHENSIVE METABOLIC 24513 CHLORIDE 103 mmol/L 06/17 Unknown COMPREHENSIVE METABOLIC 15002 Bili Total 0.4 mg/dL 06/17 Unknown COMPREHENSIVE METABOLIC 50508 ALK PHOS 51 U/L 2018 Unknown COMPREHENSIVE METABOLIC 76703 SODIUM 140 mmol/L 06/17 Unknown COMPREHENSIVE METABOLIC 47707 CREATININE 1.20 mg/dL 05/26 Unknown COMPREHENSIVE METABOLIC 16270 CALCIUM 8.9 mg/dL 2018 Unknown COMPREHENSIVE METABOLIC 49319 POTASSIUM 4.5 mmol/L 06/17 Unknown COMPREHENSIVE METABOLIC 40581 Total Protein 6.1 g/dL Unknown COMPREHENSIVE METABOLIC 54111 Glucose 108 mg/dL 2018 Unknown COMPREHENSIVE METABOLIC 49944 Bicarbonate 27 mmol/L 05/26 Unknown COMPREHENSIVE METABOLIC 80706 AGAP 10 mmol/L 2018 Unknown FERRITIN 84543 FERRITIN 35.5 ng/mL 05/08/2019 Unknown VITAMIN D TOTAL (25 HYDROXY) 63869 Vitamin D 25 OH 26.0 ng/mL 05/08/2019 Unknown GLYCOSYLATED HEMOGLOBIN TEST 40090 Hgb A1c 87831-3 8.2 % 0 05/08/2019 Unknown MEAN GLUC 9030859 Calc Mean Gluc 189 mg/dL 05/08/2019 Unkn own GFR CALC 6626839 GFR Non Afr Amr >60 mL/min 05/08/2019 Un known GFR CALC 1147961 GFR Afr Amr >60 mL/min 05/08/2019 Unknow n VITAMIN B 12 43797 VITAMIN B12 197 pg/mL 05/08/2019 Unkn own IRON 58447 Iron 34 ug/dL 05/08/2019 Unknown COMPLETE BLOOD COUNT 3919375 WBC 6.9 10e9/L 05/08/20 19 Unknown COMPLETE BLOOD COUNT 6363792 RBC 3.95 10e12/L 2018 Unknown COMPLETE BLOOD COUNT 4780448 HEMOGLOBIN 11.1 g/dL 05/08/20 19 Unknown COMPLETE BLOOD COUNT 6547519 HEMATOCRIT 34.9 % 05/08/20 19 Unknown COMPLETE BLOOD COUNT 3282626 MCV 88.4 fL 9 Unknown COMPLETE BLOOD COUNT 2624911 MCH 28.1 pg 9 Unknown COMPLETE BLOOD COUNT 4034882 MCHC 31.8 g/dL 9 Unknown COMPLETE BLOOD COUNT 5274653 PLATELET COUNT 217 10e9/L Unknown COMPLETE BLOOD COUNT 6462684 Mean Plt Volume 9.6 fL Unknown COMPLETE BLOOD COUNT 7441525 Neut Auto 77.6 % 9 Unknown COMPLETE BLOOD COUNT 9086974 Lymph Auto 10.7 % 05/08/20 19 Unknown COMPLETE BLOOD COUNT 9333675 [place] Auto 10.4 % 9 Unknown COMPLETE BLOOD COUNT 3912356 RDW 14.7 % 9 Unknown COMPLETE BLOOD COUNT 2053602 Eos Auto 1.2 % 9 Unknown COMPLETE BLOOD COUNT 9611748 Baso Auto 0.1 % 9 Unknown COMPLETE BLOOD COUNT 7606258 Neutrophil Abs 5.35 10e9/L Unknown COMPLETE BLOOD COUNT 8472594 Lymphocyte Abs 0.74 10e9/L Unknown COMPLETE BLOOD COUNT 4529936 Monocyte Abs 0.72 10e9/L 04/24 Unknown COMPLETE BLOOD COUNT 0001618 Eosinophil Abs 0.08 10e9/L Unknown COMPLETE BLOOD COUNT 2129131 RDW-SD 46.6 fL 9 Unknown COMPLETE BLOOD COUNT 6314607 Basophil Abs 0.01 10e9/L 04/24 Unknown COMPREHENSIVE METABOLIC 11864 AST 13 U/L 2018 Unknown COMPREHENSIVE METABOLIC 10455 ALT 9 U/L 2018 Unknown COMPREHENSIVE METABOLIC 74046 BUN 18 mg/dL 2018 Unknown COMPREHENSIVE METABOLIC 59278 ALBUMIN 4.3 g/dL 2018 Unknown COMPREHENSIVE METABOLIC 44870 CHLORIDE 99 mmol/L 2018 Unknown COMPREHENSIVE METABOLIC 52016 Bili Total 0.4 mg/dL 05/08 Unknown COMPREHENSIVE METABOLIC 75063 ALK PHOS 48 U/L 2018 Unknown COMPREHENSIVE METABOLIC 54850 SODIUM 137 mmol/L 05/08 Unknown COMPREHENSIVE METABOLIC 77291 CREATININE 0.79 mg/dL 04/24 Unknown COMPREHENSIVE METABOLIC 00280 CALCIUM 9.5 mg/dL 2018 Unknown COMPREHENSIVE METABOLIC 88159 POTASSIUM 4.0 mmol/L 05/08 Unknown COMPREHENSIVE METABOLIC 00673 Total Protein 6.3 g/dL Unknown COMPREHENSIVE METABOLIC 53425 Glucose 232 mg/dL 2018 Unknown COMPREHENSIVE METABOLIC 67517 Bicarbonate 27 mmol/L 04/24 Unknown COMPREHENSIVE METABOLIC 00593 AGAP 11 mmol/L 2018 Unknown GLYCOSYLATED HEMOGLOBIN TEST 89512 Hgb A1c 49620-3 8.9 % 0 12/10/2018 Unknown MEAN GLUC 6595006 Calc Mean Gluc 209 mg/dL 12/10/2018 Unkn own LIPID GROUP 28837 Cholesterol 145 mg/dL 12/09/2018 Unkno wn LIPID GROUP 68043 Triglyceride 235 mg/dL 12/09/2018 Unkn own LIPID GROUP 36006 HDL CHOLESTEROL 40 mg/dL 12/09/2018 U nknown LIPID GROUP 61809 Chol/HDL Ratio 3.62 ratio 12/09/2018 U nknown LIPID GROUP 75145 NON-HDL Chol 105 mg/dL 12/09/2018 Unkn own LIPID GROUP 88524 LDL Cholesterol 58 mg/dL 12/09/2018 U nknown THYROID STIMULATING HORMONE 52859 TSH 1.071 uIU/mL 12/09/2018 Unknown GFR CALC 7776298 GFR Non Afr Amr >60 mL/min 12/09/2018 Un known GFR CALC 6179405 GFR Afr Amr >60 mL/min 12/09/2018 Unknow n COMPLETE BLOOD COUNT 5446410 WBC 7.6 10e9/L 12/10/19 19 Unknown COMPLETE BLOOD COUNT 7466178 RBC 3.97 10e12/L 2018 Unknown COMPLETE BLOOD COUNT 1172800 HEMOGLOBIN 11.4 g/dL 12/10/19 19 Unknown COMPLETE BLOOD COUNT 5599351 HEMATOCRIT 35.8 % 12/10/19 19 Unknown COMPLETE BLOOD COUNT 6322377 MCV 90.2 fL 9 Unknown COMPLETE BLOOD COUNT 8842239 MCH 28.7 pg 9 Unknown COMPLETE BLOOD COUNT 2885193 MCHC 31.8 g/dL 9 Unknown COMPLETE BLOOD COUNT 8289158 PLATELET COUNT 200 10e9/L Unknown COMPLETE BLOOD COUNT 6119479 Mean Plt Volume 10.1 fL Unknown COMPLETE BLOOD COUNT 5960788 Neut Auto 79.0 % 9 Unknown COMPLETE BLOOD COUNT 5528945 Lymph Auto 8.3 % 12/10/19 19 Unknown COMPLETE BLOOD COUNT 6796811 [place] Auto 10.8 % 9 Unknown COMPLETE BLOOD COUNT 2813633 RDW 14.6 % 9 Unknown COMPLETE BLOOD COUNT 2637149 Eos Auto 1.5 % 9 Unknown COMPLETE BLOOD COUNT 6534929 Baso Auto 0.4 % 9 Unknown COMPLETE BLOOD COUNT 1885179 Neutrophil Abs 6.00 10e9/L Unknown COMPLETE BLOOD COUNT 0777467 Lymphocyte Abs 0.63 10e9/L Unknown COMPLETE BLOOD COUNT 9994165 Monocyte Abs 0.82 10e9/L 11/22 Unknown COMPLETE BLOOD COUNT 6184339 Eosinophil Abs 0.11 10e9/L Unknown COMPLETE BLOOD COUNT 7990425 RDW-SD 46.9 fL 9 Unknown COMPLETE BLOOD COUNT 8899435 Basophil Abs 0.03 10e9/L 11/22 Unknown COMPREHENSIVE METABOLIC 31553 AST 11 U/L 2018 Unknown COMPREHENSIVE METABOLIC 14742 ALT 11 U/L 2018 Unknown COMPREHENSIVE METABOLIC 06393 BUN 21 mg/dL 2018 Unknown COMPREHENSIVE METABOLIC 93744 ALBUMIN 4.7 g/dL 2018 Unknown COMPREHENSIVE METABOLIC 37609 CHLORIDE 99 mmol/L 2018 Unknown COMPREHENSIVE METABOLIC 28807 Bili Total 0.4 mg/dL 12/09 Unknown COMPREHENSIVE METABOLIC 80250 ALK PHOS 73 U/L 2018 Unknown COMPREHENSIVE METABOLIC 99445 SODIUM 137 mmol/L 12/09 Unknown COMPREHENSIVE METABOLIC 39462 CREATININE 1.12 mg/dL 11/22 Unknown COMPREHENSIVE METABOLIC 20999 CALCIUM 9.4 mg/dL 2018 Unknown COMPREHENSIVE METABOLIC 89449 POTASSIUM 4.2 mmol/L 12/09 Unknown COMPREHENSIVE METABOLIC 34358 Total Protein 6.8 g/dL Unknown COMPREHENSIVE METABOLIC 67201 Glucose 194 mg/dL 2018 Unknown COMPREHENSIVE METABOLIC 36251 Bicarbonate 30 mmol/L 11/22 Unknown COMPREHENSIVE METABOLIC 00615 AGAP 8 mmol/L 2018 Unknown FREE T4 46949 T4 Free 0.86 ng/dL 12/09/2018 Unknown COMPLETE BLOOD COUNT 4497810 WBC 6.8 10e9/L 04/17/20 17 Unknown COMPLETE BLOOD COUNT 9902105 RBC 3.86 10e12/L 2016 Unknown COMPLETE BLOOD COUNT 1274056 HEMOGLOBIN 9.8 g/dL 04/17/20 17 Unknown COMPLETE BLOOD COUNT 1360450 HEMATOCRIT 31.1 % 04/17/20 17 Unknown COMPLETE BLOOD COUNT 0350253 MCV 80.6 fL 7 Unknown COMPLETE BLOOD COUNT 8817514 MCH 25.4 pg 7 Unknown COMPLETE BLOOD COUNT 5129411 MCHC 31.5 g/dL 7 Unknown COMPLETE BLOOD COUNT 4673233 PLATELET COUNT 247 10e9/L Unknown COMPLETE BLOOD COUNT 0659695 Mean Plt Volume 9.7 fL Unknown COMPLETE BLOOD COUNT 4678605 Neut Auto 74.1 % 7 Unknown COMPLETE BLOOD COUNT 0709719 Lymph Auto 12.0 % 04/17/20 17 Unknown COMPLETE BLOOD COUNT 9176046 [place] Auto 10.8 % 7 Unknown COMPLETE BLOOD COUNT 9028748 RDW 15.9 % 7 Unknown COMPLETE BLOOD COUNT 7235727 Eos Auto 2.5 % 7 Unknown COMPLETE BLOOD COUNT 3998934 Baso Auto 0.6 % 7 Unknown COMPLETE BLOOD COUNT 1459533 Neutrophil Abs 5.04 10e9/L Unknown COMPLETE BLOOD COUNT 2625592 Lymphocyte Abs 0.82 10e9/L Unknown COMPLETE BLOOD COUNT 9519107 Monocyte Abs 0.73 10e9/L 03/25 Unknown COMPLETE BLOOD COUNT 9845609 Eosinophil Abs 0.17 10e9/L Unknown COMPLETE BLOOD COUNT 6520313 RDW-SD 44.4 fL 7 Unknown COMPLETE BLOOD COUNT 6536968 Basophil Abs 0.04 10e9/L 03/25 Unknown MEAN GLUC 0135491 Calc Mean Gluc 223 mg/dL 04/17/2017 Unkn own GFR CALC 1075872 GFR Non Afr Amr >60 mL/min 04/17/2017 Un known GFR CALC 9217766 GFR Afr Amr >60 mL/min 04/17/2017 Unknow n GLYCOSYLATED HEMOGLOBIN TEST 82752 Hgb A1c 25948-6 9.4 % 0 04/17/2017 Unknown IRON 20682 Iron 37 ug/dL 04/17/2017 Unknown VITAMIN B 12 72421 VITAMIN B12 280 pg/mL 04/17/2017 Unkn own THYROID STIMULATING HORMONE 21877 TSH 2.481 uIU/mL 04/17/2017 Unknown COMPREHENSIVE METABOLIC 24114 AST 13 U/L 2016 Unknown COMPREHENSIVE METABOLIC 57981 ALT 12 U/L 2016 Unknown COMPREHENSIVE METABOLIC 65014 BUN 18 mg/dL 2016 Unknown COMPREHENSIVE METABOLIC 90145 ALBUMIN 4.7 g/dL 2016 Unknown COMPREHENSIVE METABOLIC 48854 CHLORIDE 103 mmol/L 04/17 Unknown COMPREHENSIVE METABOLIC 33863 Bili Total 0.4 mg/dL 04/17 Unknown COMPREHENSIVE METABOLIC 43764 ALK PHOS 49 U/L 2016 Unknown COMPREHENSIVE METABOLIC 31026 SODIUM 140 mmol/L 04/17 Unknown COMPREHENSIVE METABOLIC 79457 CREATININE 1.14 mg/dL 03/25 Unknown COMPREHENSIVE METABOLIC 26468 CALCIUM 9.4 mg/dL 2016 Unknown COMPREHENSIVE METABOLIC 88547 POTASSIUM 4.4 mmol/L 04/17 Unknown COMPREHENSIVE METABOLIC 08876 Total Protein 6.7 g/dL Unknown COMPREHENSIVE METABOLIC 19267 Glucose 266 mg/dL 2016 Unknown COMPREHENSIVE METABOLIC 21419 Bicarbonate 25 mmol/L 03/25 Unknown COMPREHENSIVE METABOLIC 63984 AGAP 12 mmol/L 2016 Unknown FERRITIN 49633 FERRITIN 10.0 ng/mL 04/17/2017 Unknown COMPLETE BLOOD COUNT 1649746 WBC 6.8 10e9/L 12/22/19 17 Unknown COMPLETE BLOOD COUNT 8596507 RBC 3.70 10e12/L 2016 Unknown COMPLETE BLOOD COUNT 0606992 HEMOGLOBIN 8.0 g/dL 12/22/19 17 Unknown COMPLETE BLOOD COUNT 6056950 HEMATOCRIT 26.7 % 12/22/19 17 Unknown COMPLETE BLOOD COUNT 4667428 MCV 72.2 fL 7 Unknown COMPLETE BLOOD COUNT 2548581 MCH 21.6 pg 7 Unknown COMPLETE BLOOD COUNT 0631760 MCHC 30.0 g/dL 7 Unknown COMPLETE BLOOD COUNT 3491169 PLATELET COUNT 290 10e9/L Unknown COMPLETE BLOOD COUNT 7574143 Mean Plt Volume 9.3 fL Unknown COMPLETE BLOOD COUNT 5843918 Neut Auto 80.2 % 7 Unknown COMPLETE BLOOD COUNT 9213353 Lymph Auto 9.8 % 12/22/19 17 Unknown COMPLETE BLOOD COUNT 4785443 [place] Auto 8.1 % 7 Unknown COMPLETE BLOOD COUNT 5044755 RDW 17.4 % 7 Unknown COMPLETE BLOOD COUNT 5802655 Eos Auto 1.5 % 7 Unknown COMPLETE BLOOD COUNT 6691477 Baso Auto 0.4 % 7 Unknown COMPLETE BLOOD COUNT 6897275 Neutrophil Abs 5.45 10e9/L Unknown COMPLETE BLOOD COUNT 3189231 Lymphocyte Abs 0.67 10e9/L Unknown COMPLETE BLOOD COUNT 2270803 Monocyte Abs 0.55 10e9/L 11/24 Unknown COMPLETE BLOOD COUNT 5990097 Eosinophil Abs 0.10 10e9/L Unknown COMPLETE BLOOD COUNT 0385448 RDW-SD 44.1 fL 7 Unknown COMPLETE BLOOD COUNT 4339128 Basophil Abs 0.03 10e9/L 11/24 Unknown COMPLETE BLOOD COUNT 9682170 WBC 7.6 10e9/L 12/13/19 17 Unknown COMPLETE BLOOD COUNT 1614644 RBC 3.71 10e12/L 2016 Unknown COMPLETE BLOOD COUNT 4574196 HEMOGLOBIN 8.0 g/dL 12/13/19 17 Unknown COMPLETE BLOOD COUNT 7386296 HEMATOCRIT 27.3 % 12/13/19 17 Unknown COMPLETE BLOOD COUNT 9837609 MCV 73.6 fL 7 Unknown COMPLETE BLOOD COUNT 1598906 MCH 21.6 pg 7 Unknown COMPLETE BLOOD COUNT 9492284 MCHC 29.3 g/dL 7 Unknown COMPLETE BLOOD COUNT 7911606 PLATELET COUNT 330 10e9/L Unknown COMPLETE BLOOD COUNT 7030015 Mean Plt Volume 9.7 fL Unknown COMPLETE BLOOD COUNT 6694008 Neut Auto 73.2 % 7 Unknown COMPLETE BLOOD COUNT 2453529 Lymph Auto 14.5 % 12/13/19 17 Unknown COMPLETE BLOOD COUNT 1850537 [place] Auto 10.5 % 7 Unknown COMPLETE BLOOD COUNT 8127989 RDW 17.3 % 7 Unknown COMPLETE BLOOD COUNT 4819559 Eos Auto 1.3 % 7 Unknown COMPLETE BLOOD COUNT 7260243 Baso Auto 0.5 % 7 Unknown COMPLETE BLOOD COUNT 9145969 Neutrophil Abs 5.56 10e9/L Unknown COMPLETE BLOOD COUNT 1844291 Lymphocyte Abs 1.10 10e9/L Unknown COMPLETE BLOOD COUNT 2924993 Monocyte Abs 0.80 10e9/L 11/23 Unknown COMPLETE BLOOD COUNT 6585567 Eosinophil Abs 0.10 10e9/L Unknown COMPLETE BLOOD COUNT 8985741 RDW-SD 45.2 fL 7 Unknown COMPLETE BLOOD COUNT 3597770 Basophil Abs 0.04 10e9/L 11/23 Unknown IRON 72734 Iron 69 ug/dL 03/09/2016 Unknown VITAMIN B 12 05631 VITAMIN B12 311 pg/mL 03/09/2016 Unkn own MEAN GLUC 8858379 Mean Glucose 260 mg/dL 03/07/2016 Unknow n GLYCOSYLATED HEMOGLOBIN TEST 91167 Hgb A1c 86333-4 10.7 % 0 03/07/2016 Unknown COMPREHENSIVE METABOLIC 69522 AST 14 U/L 2015 Unknown COMPREHENSIVE METABOLIC 49621 ALT 21 U/L 2015 Unknown COMPREHENSIVE METABOLIC 71138 BUN 27 mg/dL 2015 Unknown COMPREHENSIVE METABOLIC 06150 ALBUMIN 4.5 g/dL 2015 Unknown COMPREHENSIVE METABOLIC 61896 CHLORIDE 101 mmol/L 03/06 Unknown COMPREHENSIVE METABOLIC 55934 Bili Total 0.4 mg/dL 03/06 Unknown COMPREHENSIVE METABOLIC 31414 ALK PHOS 49 U/L 2015 Unknown COMPREHENSIVE METABOLIC 03499 SODIUM 136 mmol/L 03/06 Unknown COMPREHENSIVE METABOLIC 84235 CREATININE 1.16 mg/dL 02/22 Unknown COMPREHENSIVE METABOLIC 16593 CALCIUM 9.9 mg/dL 2015 Unknown COMPREHENSIVE METABOLIC 88832 POTASSIUM 4.5 mmol/L 03/06 Unknown COMPREHENSIVE METABOLIC 06296 Total Protein 6.7 g/dL Unknown COMPREHENSIVE METABOLIC 97533 Glucose 245 mg/dL 2015 Unknown COMPREHENSIVE METABOLIC 53931 Bicarbonate 24 mmol/L 02/22 Unknown COMPREHENSIVE METABOLIC 76013 AGAP 11 mmol/L 2015 Unknown THYROID STIMULATING HORMONE 45509 TSH 0.775 uIU/mL 03/06/2016 Unknown TESTOSTERONE TOTAL 40107 Testos Total 96 ng/dL 03/06/20 16 Unknown LIPID GROUP 30754 Cholesterol 146 mg/dL 03/06/2016 Unkno wn LIPID GROUP 60080 Triglyceride 249 mg/dL 03/06/2016 Unkn own LIPID GROUP 15517 HDL CHOLESTEROL 46 mg/dL 03/06/2016 U nknown LIPID GROUP 51047 Chol/HDL Ratio 3.17 ratio 03/06/2016 U nknown LIPID GROUP 16529 NON-HDL Chol 100 mg/dL 03/06/2016 Unkn own LIPID GROUP 21784 LDL Cholesterol 50 mg/dL 03/06/2016 U nknown COMPLETE BLOOD COUNT 5226332 WBC 11.2 10e9/L 016 Unknown COMPLETE BLOOD COUNT 9189547 RBC 3.94 10e12/L 2015 Unknown COMPLETE BLOOD COUNT 6539748 HEMOGLOBIN 11.4 g/dL 03/06/20 16 Unknown COMPLETE BLOOD COUNT 2727902 HEMATOCRIT 33.7 % 03/06/20 16 Unknown COMPLETE BLOOD COUNT 0298602 MCV 85.5 fL 6 Unknown COMPLETE BLOOD COUNT 9071330 MCH 28.9 pg 6 Unknown COMPLETE BLOOD COUNT 3240678 MCHC 33.8 g/dL 6 Unknown COMPLETE BLOOD COUNT 3757412 PLATELET COUNT 204 10e9/L Unknown COMPLETE BLOOD COUNT 3608744 Mean Plt Volume 10.1 fL Unknown COMPLETE BLOOD COUNT 0993995 Neut Auto 85.9 % 6 Unknown COMPLETE BLOOD COUNT 4667275 Lymph Auto 6.8 % 03/06/20 16 Unknown COMPLETE BLOOD COUNT 4024811 [place] Auto 7.0 % 6 Unknown COMPLETE BLOOD COUNT 2599833 RDW 13.7 % 6 Unknown COMPLETE BLOOD COUNT 2170417 Eos Auto 0.1 % 6 Unknown COMPLETE BLOOD COUNT 4351833 Baso Auto 0.2 % 6 Unknown COMPLETE BLOOD COUNT 9426086 Neutrophil Abs 9.62 10e9/L Unknown COMPLETE BLOOD COUNT 5898614 Lymphoctye Abs 0.76 10e9/L Unknown COMPLETE BLOOD COUNT 8782836 Monocyte Abs 0.78 10e9/L 02/22 Unknown COMPLETE BLOOD COUNT 9145450 Eosinophil Abs 0.01 10e9/L Unknown COMPLETE BLOOD COUNT 7063862 RDW-SD 41.9 fL 6 Unknown COMPLETE BLOOD COUNT 8563045 Basophil Abs 0.02 10e9/L 02/22 Unknown FREE T4 03372 T4 Free 0.89 ng/dL 03/06/2016 Unknown GFR CALC 5973480 GFR Non Afr Amr >60 mL/min 03/06/2016 Un known GFR CALC 8504941 GFR Afr Amr >60 mL/min 03/06/2016 Unknow n PSA EQUIMOLAR JONATAN 01789 PSA Total 0.78 ng/mL 6 Unknown FREE T4 10797 FREE T4 0.90 NG/DL 07/01/2015 Unknown LIPID GROUP 25884 HDL TEST 44 MG/DL 07/01/2015 Unknown LIPID GROUP 89611 TRIG 303 MG/DL 07/01/2015 Unknown LIPID GROUP 27901 TEST LDL 56 MG/DL 07/01/2015 Unknown LIPID GROUP 57938 CHOL 161 MG/DL 07/01/2015 Unknown LIPID GROUP 99277 RCHOL/HDL 3.66 RATIO 07/01/2015 Unknow n LIPID GROUP 33104 NON-HDL CH 117 MG/DL 07/01/2015 Unknow n THYROID STIMULATING HORMONE 82937 TSH 1.783 uIU/ML 07/01/2015 Unknown COMPLETE BLOOD COUNT 7920813 WBC 6.6 10e9/L 07/01/20 15 Unknown COMPLETE BLOOD COUNT 3154624 RBC 4.18 10e12/L 2014 Unknown COMPLETE BLOOD COUNT 3625437 HGB 12.2 g/dL 5 Unknown COMPLETE BLOOD COUNT 7397917 HCT DET 37.0 % 5 Unknown COMPLETE BLOOD COUNT 3190200 MCV 88.5 fL 5 Unknown COMPLETE BLOOD COUNT 5672502 MCH 29.2 pg 5 Unknown COMPLETE BLOOD COUNT 6538652 MCHC 33.0 g/dL 5 Unknown COMPLETE BLOOD COUNT 3412018 PLT 224 10e9/L 07/01/20 15 Unknown COMPLETE BLOOD COUNT 7981879 MPV 10.4 fL 5 Unknown COMPLETE BLOOD COUNT 7661039 SUSIE % 72.6 % 5 Unknown COMPLETE BLOOD COUNT 7953443 LY % 14.1 % 5 Unknown COMPLETE BLOOD COUNT 5965587 MON % 10.2 % 5 Unknown COMPLETE BLOOD COUNT 1753416 EOS % 2.6 % 5 Unknown COMPLETE BLOOD COUNT 5713231 BASO % 0.5 % 5 Unknown COMPLETE BLOOD COUNT 6342151 RDW 14.1 % 5 Unknown COMPLETE BLOOD COUNT 1767390 ABS SUSIE 4.79 10e9/L 015 Unknown COMPLETE BLOOD COUNT 5244587 ABS LYMPH 0.93 10e9/L 015 Unknown COMPLETE BLOOD COUNT 6926167 ABS MONO 0.67 10e9/L 015 Unknown COMPLETE BLOOD COUNT 4313772 ABS EOS 0.17 10e9/L 015 Unknown COMPLETE BLOOD COUNT 2712796 ABS BASO 0.03 10e9/L 015 Unknown COMPLETE BLOOD COUNT 8758745 RDW-SD 43.9 fL 5 Unknown PSA EQUIMOLAR JONATAN 94519 PSA EQ 0.73 NG/ML 5 Unknown COMPREHENSIVE METABOLIC 10352 AST 24 U/L 2014 Unknown COMPREHENSIVE METABOLIC 31236 ALT 26 IU/L 2014 Unknown COMPREHENSIVE METABOLIC 42792 BUN 26 MG/DL 2014 Unknown COMPREHENSIVE METABOLIC 75145 ALBUMIN 4.6 GM/DL 2014 Unknown COMPREHENSIVE METABOLIC 33164 CHLORIDE 102 MMOL/L 06/01 Unknown COMPREHENSIVE METABOLIC 70590 BILI TOT 0.5 MG/DL 2014 Unknown COMPREHENSIVE METABOLIC 20153 ALK PHOS 56 U/L 2014 Unknown COMPREHENSIVE METABOLIC 47114 SODIUM 136 MMOL/L 06/01 Unknown COMPREHENSIVE METABOLIC 62641 CREATININE 1.16 MG/DL 04/2015 Unknown COMPREHENSIVE METABOLIC 12382 CALCIUM 9.8 MG/DL 2014 Unknown COMPREHENSIVE METABOLIC 66408 POTASSIUM 4.6 MMOL/L 06/01 Unknown COMPREHENSIVE METABOLIC 93079 PROT TOT 7.4 GM/DL 2014 Unknown COMPREHENSIVE METABOLIC 41990 Glucose 223 MG/DL 2014 Unknown COMPREHENSIVE METABOLIC 93681 BICARB 27 MMOL/L 2014 Unknown COMPREHENSIVE METABOLIC 75560 ANION GAP 7 MEQ/L 2014 Unknown GFR CALC 6771555 GFR AA >60 ML/MIN 06/01/2015 Unknown GFR CALC 1076632 GFR NON-AA >60 ML/MIN 06/01/2015 Unknown GLYCOSYLATED HEMOGLOBIN TEST 10085 A1C HPLC 90892-3 8.9 % 0 06/01/2015 Unknown GFR CALC 6525027 GFR AA >60 ML/MIN 02/25/2015 Unknown GFR CALC 9248304 GFR NON-AA >60 ML/MIN 02/25/2015 Unknown COMPREHENSIVE METABOLIC 36558 AST 24 U/L 2014 Unknown COMPREHENSIVE METABOLIC 13511 ALT 25 IU/L 2014 Unknown COMPREHENSIVE METABOLIC 49405 BUN 14 MG/DL 2014 Unknown COMPREHENSIVE METABOLIC 32108 ALBUMIN 4.5 GM/DL 2014 Unknown COMPREHENSIVE METABOLIC 39254 CHLORIDE 99 MMOL/L 2014 Unknown COMPREHENSIVE METABOLIC 91218 BILI TOT 0.5 MG/DL 2014 Unknown COMPREHENSIVE METABOLIC 46689 ALK PHOS 48 U/L 2014 Unknown COMPREHENSIVE METABOLIC 37983 SODIUM 136 MMOL/L 02/25 Unknown COMPREHENSIVE METABOLIC 60331 CREATININE 0.97 MG/DL 12/2014 Unknown COMPREHENSIVE METABOLIC 63497 CALCIUM 9.9 MG/DL 2014 Unknown COMPREHENSIVE METABOLIC 53307 POTASSIUM 4.4 MMOL/L 02/25 Unknown COMPREHENSIVE METABOLIC 83038 PROT TOT 7.1 GM/DL 2014 Unknown COMPREHENSIVE METABOLIC 56222 Glucose 171 MG/DL 2014 Unknown COMPREHENSIVE METABOLIC 69549 BICARB 25 MMOL/L 2014 Unknown COMPREHENSIVE METABOLIC 11262 ANION GAP 12 MEQ/L 2014 Unknown PROTEIN/CREAT URINE WITH RATIO [id number] PROT R U 19 MG/D L 08/27/2014 Unknown PROTEIN/CREAT URINE WITH RATIO 50566|[id number] CREAT R U 111 MG/ DL 08/27/2014 Unknown PROTEIN/CREAT URINE WITH RATIO 28227|54611 XRATIO P/C 171 MG /G 08/27/2014 Unknown MICROALBUMIN URINE RANDOM 37381 MICRL MG/L 34.7 MG/L 12/2013 Unknown MICROALBUMIN URINE RANDOM 38127 XM.ALB/CRE 32.7 MG/GCR 1 10/28/2013 Unknown MICROALBUMIN URINE RANDOM 84936 CREAT MG/D 106 MG/DL 12/2013 Unknown MICROALBUMIN URINE RANDOM 12383 CRE/100 1.06 G/L 12/2013 Unknown COMPLETE BLOOD COUNT [id number] WBC 7.1 10e9/L 08/05/20 14 Unknown COMPLETE BLOOD COUNT [id number] RBC 4.35 10e12/L 2013 Unknown COMPLETE BLOOD COUNT [id number] HGB 12.9 g/dL 4 Unknown COMPLETE BLOOD COUNT [id number] HCT DET 39.4 % 4 Unknown COMPLETE BLOOD COUNT [id number] MCV 90.6 fL 4 Unknown COMPLETE BLOOD COUNT [id number] MCH 29.7 pg 4 Unknown COMPLETE BLOOD COUNT [id number] MCHC 32.7 g/dL 4 Unknown COMPLETE BLOOD COUNT [id number] PLT 240 10e9/L 08/05/20 14 Unknown COMPLETE BLOOD COUNT [id number] MPV 10.3 fL 4 Unknown COMPLETE BLOOD COUNT [id number] SUSIE % 70.0 % 4 Unknown COMPLETE BLOOD COUNT [id number] LY % 16.4 % 4 Unknown COMPLETE BLOOD COUNT [id number] MON % 9.2 % 4 Unknown COMPLETE BLOOD COUNT [id number] EOS % 3.8 % 4 Unknown COMPLETE BLOOD COUNT [id number] BASO % 0.6 % 4 Unknown COMPLETE BLOOD COUNT [id number] RDW 13.4 % 4 Unknown COMPLETE BLOOD COUNT [id number] ABS USSIE 4.97 10e9/L 014 Unknown COMPLETE BLOOD COUNT [id number] ABS LYMPH 1.16 10e9/L 014 Unknown COMPLETE BLOOD COUNT [id number] ABS MONO 0.65 10e9/L 014 Unknown COMPLETE BLOOD COUNT [id number] ABS EOS 0.27 10e9/L 014 Unknown COMPLETE BLOOD COUNT [id number] ABS BASO 0.04 10e9/L 014 Unknown COMPLETE BLOOD COUNT [id number] RDW-SD 43.3 fL 4 Unknown FREE T4 47721 FREE T4 1.02 NG/DL 08/05/2014 Unknown GFR CALC 3552856 GFR AA >60 ML/MIN 08/05/2014 Unknown GFR CALC 6043028 GFR NON-AA >60 ML/MIN 08/05/2014 Unknown GLYCOSYLATED HEMOGLOBIN TEST 42234 A1C HPLC 63619-3 7.7 % 1 10/05/2013 Unknown COMPREHENSIVE METABOLIC 94979 AST 19 U/L 2013 Unknown COMPREHENSIVE METABOLIC 25721 ALT 21 IU/L 2013 Unknown COMPREHENSIVE METABOLIC 85098 BUN 25 MG/DL 2013 Unknown COMPREHENSIVE METABOLIC 87440 ALBUMIN 4.6 GM/DL 2013 Unknown COMPREHENSIVE METABOLIC 77596 CHLORIDE 103 MMOL/L 08/05 Unknown COMPREHENSIVE METABOLIC 67189 BILI TOT 0.4 MG/DL 2013 Unknown COMPREHENSIVE METABOLIC 61024 ALK PHOS 45 U/L 2013 Unknown COMPREHENSIVE METABOLIC 48271 SODIUM 138 MMOL/L 08/05 Unknown COMPREHENSIVE METABOLIC 96326 CREATININE 1.01 MG/DL 07/25 Unknown COMPREHENSIVE METABOLIC 97018 CALCIUM 9.8 MG/DL 2013 Unknown COMPREHENSIVE METABOLIC 66774 POTASSIUM 4.7 MMOL/L 08/05 Unknown COMPREHENSIVE METABOLIC 15654 PROT TOT 7.0 GM/DL 2013 Unknown COMPREHENSIVE METABOLIC 72685 Glucose 145 MG/DL 2013 Unknown COMPREHENSIVE METABOLIC 00123 BICARB 27 MMOL/L 2013 Unknown COMPREHENSIVE METABOLIC 40822 ANION GAP 8 MEQ/L 2013 Unknown THYROID STIMULATING HORMONE 19427 TSH 1.922 uIU/ML 08/05/2014 Unknown LIPID GROUP 50813 HDL TEST 47 MG/DL 08/05/2014 Unknown LIPID GROUP 07662 TRIG 224 MG/DL 08/05/2014 Unknown LIPID GROUP 95948 TEST LDL 125 MG/DL 08/05/2014 Unknown LIPID GROUP 74062 CHOL 217 MG/DL 08/05/2014 Unknown LIPID GROUP 85717 RCHOL/HDL 4.62 RATIO 08/05/2014 Unknow n LIPID GROUP 21065 NON-HDL CH 170 MG/DL 08/05/2014 Unknow n MYCOPLASMA ANTIBODY, IFA [id number] MYCO G IFA 1:256 03/24 Unknown MYCOPLASMA ANTIBODY, IFA [id number] MYCO M IFA <1:10 03/24 Unknown MYCOPLASMA ANTIBODY, IFA [id number] MYCO INTER SEE BELO 03/24 Unknown COMPLETE BLOOD COUNT [id number] WBC 8.3 10e9/L 04/09/20 13 Unknown COMPLETE BLOOD COUNT [id number] RBC 4.61 10e12/L 2012 Unknown COMPLETE BLOOD COUNT 7998050 HGB 13.9 g/dL 3 Unknown COMPLETE BLOOD COUNT [id number] HCT DET 41.2 % 3 Unknown COMPLETE BLOOD COUNT 9650421 MCV 89.4 fL 3 Unknown COMPLETE BLOOD COUNT [id number] MCH 30.2 pg 3 Unknown COMPLETE BLOOD COUNT 6461553 MCHC 33.7 g/dL 3 Unknown COMPLETE BLOOD COUNT 7822536 PLT 249 10e9/L 04/09/20 13 Unknown COMPLETE BLOOD COUNT 6630516 MPV 9.8 fL 3 Unknown COMPLETE BLOOD COUNT 8146084 SUSIE % 65.9 % 3 Unknown COMPLETE BLOOD COUNT [id number] LY % 19.8 % 3 Unknown COMPLETE BLOOD COUNT 6375241 MON % 10.8 % 3 Unknown COMPLETE BLOOD COUNT [id number] EOS % 3.0 % 3 Unknown COMPLETE BLOOD COUNT [id number] BASO % 0.5 % 3 Unknown COMPLETE BLOOD COUNT 4925076 RDW 14.0 % 3 Unknown COMPLETE BLOOD COUNT 8430162 ABS SUSIE 5.47 10e9/L 013 Unknown COMPLETE BLOOD COUNT [id number] ABS LYMPH 1.64 10e9/L 013 Unknown COMPLETE BLOOD COUNT [id number] ABS MONO 0.90 10e9/L 013 Unknown COMPLETE BLOOD COUNT [id number] ABS EOS 0.25 10e9/L 013 Unknown COMPLETE BLOOD COUNT [id number] ABS BASO 0.04 10e9/L 013 Unknown COMPLETE BLOOD COUNT 1603617 RDW-SD 45.0 fL 3 Unknown URIC ACID 58271 URIC ACID 5.3 MG/DL 02/12/2013 Unknown FREE T4 55628 FREE T4 1.09 NG/DL 02/11/2013 Unknown COMPLETE BLOOD COUNT [id number] WBC 6.3 10e9/L 02/12/20 13 Unknown COMPLETE BLOOD COUNT [id number] RBC 4.29 10e12/L 2012 Unknown COMPLETE BLOOD COUNT [id number] HGB 13.1 g/dL 3 Unknown COMPLETE BLOOD COUNT [id number] HCT DET 39.7 % 3 Unknown COMPLETE BLOOD COUNT 8734477 MCV 92.5 fL 3 Unknown COMPLETE BLOOD COUNT 6691429 MCH 30.5 pg 3 Unknown COMPLETE BLOOD COUNT 8373111 MCHC 33.0 g/dL 3 Unknown COMPLETE BLOOD COUNT 4122268 PLT 247 10e9/L 02/12/20 13 Unknown COMPLETE BLOOD COUNT 8085566 MPV 10.0 fL 3 Unknown COMPLETE BLOOD COUNT 4578696 SUSIE % 73.4 % 3 Unknown COMPLETE BLOOD COUNT 0141537 LY % 13.5 % 3 Unknown COMPLETE BLOOD COUNT 0432894 MON % 9.4 % 3 Unknown COMPLETE BLOOD COUNT [id number] EOS % 2.9 % 3 Unknown COMPLETE BLOOD COUNT 1402690 BASO % 0.8 % 3 Unknown COMPLETE BLOOD COUNT 1021602 RDW 13.8 % 3 Unknown COMPLETE BLOOD COUNT [id number] ABS SUSIE 4.62 10e9/L 013 Unknown COMPLETE BLOOD COUNT [id number] ABS LYMPH 0.85 10e9/L 013 Unknown COMPLETE BLOOD COUNT [id number] ABS MONO 0.59 10e9/L 013 Unknown COMPLETE BLOOD COUNT [id number] ABS EOS 0.18 10e9/L 013 Unknown COMPLETE BLOOD COUNT [id number] ABS BASO 0.05 10e9/L 013 Unknown COMPLETE BLOOD COUNT [id number] RDW-SD 45.7 fL 3 Unknown HEMOGLOBIN A1C (GLYCOSYLATED) 7129994 A1C HPLC 99724-2 7.5 % 02/11/2013 Unknown THYROID STIMULATING HORMONE 80031 TSH 1.466 uIU/ML 02/11/2013 Unknown VITAMIN B 12 FOLIC ACID 02940|50863 VIT B 12 625 PG/ML 01/23 Unknown VITAMIN B 12 FOLIC ACID 26255|47175 FOLIC ACID 15.6 NG/ML Unknown COMPREHENSIVE METABOLIC 97295 AST 18 U/L 2012 Unknown COMPREHENSIVE METABOLIC 56924 ALT 21 IU/L 2012 Unknown COMPREHENSIVE METABOLIC 34713 BUN 25 MG/DL 2012 Unknown COMPREHENSIVE METABOLIC 14568 ALBUMIN 4.6 GM/DL 2012 Unknown COMPREHENSIVE METABOLIC 09454 CHLORIDE 103 MMOL/L 02/11 Unknown COMPREHENSIVE METABOLIC 06448 BILI TOT 0.3 MG/DL 2012 Unknown COMPREHENSIVE METABOLIC 15686 ALK PHOS 53 U/L 2012 Unknown COMPREHENSIVE METABOLIC 92136 SODIUM 136 MMOL/L 02/11 Unknown COMPREHENSIVE METABOLIC 10647 CREATININE 1.16 MG/DL 01/23 Unknown COMPREHENSIVE METABOLIC 58336 CALCIUM 10.0 MG/DL 02/11 Unknown COMPREHENSIVE METABOLIC 32930 POTASSIUM 4.9 MMOL/L 02/11 Unknown COMPREHENSIVE METABOLIC 31213 PROT TOT 7.0 GM/DL 2012 Unknown COMPREHENSIVE METABOLIC 34815 Glucose 192 MG/DL 2012 Unknown COMPREHENSIVE METABOLIC 53809 BICARB 26 MMOL/L 2012 Unknown COMPREHENSIVE METABOLIC 06859 ANION GAP 7 MEQ/L 2012 Unknown GFR CALC 1461628 GFR AA >60 ML/MIN 02/11/2013 Unknown GFR CALC 7531273 GFR NON-AA >60 ML/MIN 02/11/2013 Unknown C-REACTIVE PROTEIN (CRP) QUANT 93559 CRP 2.7 MG/DL 02/11/2013 Unknown GFR CALC 3799643 GFR AA >60 ML/MIN 09/19/2012 Unknown GFR CALC 4034727 GFR NON-AA >60 ML/MIN 09/19/2012 Unknown HEMOGLOBIN A1C (GLYCOSYLATED) 5192908 A1C HPLC 23706-9 7.2 % 09/19/2012 Unknown COMPREHENSIVE METABOLIC 11404 AST 13 U/L 2011 Unknown COMPREHENSIVE METABOLIC 99526 ALT 17 IU/L 2011 Unknown COMPREHENSIVE METABOLIC 22097 BUN 25 MG/DL 2011 Unknown COMPREHENSIVE METABOLIC 71673 ALBUMIN 4.5 GM/DL 2011 Unknown COMPREHENSIVE METABOLIC 19844 CHLORIDE 104 MMOL/L 09/19 Unknown COMPREHENSIVE METABOLIC 52401 BILI TOT 0.3 MG/DL 2011 Unknown COMPREHENSIVE METABOLIC 77989 ALK PHOS 43 U/L 2011 Unknown COMPREHENSIVE METABOLIC 68376 SODIUM 139 MMOL/L 09/19 Unknown COMPREHENSIVE METABOLIC 22494 CREATININE 1.10 MG/DL 08/25 Unknown COMPREHENSIVE METABOLIC 11400 CALCIUM 9.8 MG/DL 2011 Unknown COMPREHENSIVE METABOLIC 09170 POTASSIUM 4.8 MMOL/L 09/19 Unknown COMPREHENSIVE METABOLIC 07975 PROT TOT 6.5 GM/DL 2011 Unknown COMPREHENSIVE METABOLIC 23695 Glucose 148 MG/DL 2011 Unknown COMPREHENSIVE METABOLIC 03838 BICARB 25 MMOL/L 2011 Unknown COMPREHENSIVE METABOLIC 08240 ANION GAP 10 MEQ/L 2011 Unknown LIPID GROUP 83984 HDL TEST 44 MG/DL 09/19/2012 Unknown LIPID GROUP 97030 TRIG 318 MG/DL 09/19/2012 Unknown LIPID GROUP 91365 TEST LDL 100 MG/DL 09/19/2012 Unknown LIPID GROUP 46043 CHOL 208 MG/DL 09/19/2012 Unknown LIPID GROUP 06373 RCHOL/HDL 4.73 RATIO 09/19/2012 Unknow n FREE T4 97254 FREE T4 0.87 NG/DL 05/06/2012 Unknown GLYCOSYLATED HEMOGLOBIN TEST 48763 A1C HPLC 72714-5 6.4 % 0 05/06/2012 Unknown LIPID GROUP 88229 HDL TEST 44 MG/DL 05/06/2012 Unknown LIPID GROUP 58073 TRIG 177 MG/DL 05/06/2012 Unknown LIPID GROUP 17451 TEST LDL 113 MG/DL 05/06/2012 Unknown LIPID GROUP 21342 CHOL 192 MG/DL 05/06/2012 Unknown LIPID GROUP 20538 RCHOL/HDL 4.36 RATIO 05/06/2012 Unknow n THYROID STIMULATING HORMONE 53032 TSH 1.151 uIU/ML 05/06/2012 Unknown COMPLETE BLOOD COUNT 36788 WBC 7.8 10e9/L 05/06/20 12 Unknown COMPLETE BLOOD COUNT 11790 RBC 4.31 10e12/L 2011 Unknown COMPLETE BLOOD COUNT 27873 HGB 12.8 g/dL 2 Unknown COMPLETE BLOOD COUNT 18437 HCT DET 39.1 % 2 Unknown COMPLETE BLOOD COUNT 10247 MCV 90.7 fL 2 Unknown COMPLETE BLOOD COUNT 28024 MCH 29.7 pg 2 Unknown COMPLETE BLOOD COUNT 26843 MCHC 32.7 g/dL 2 Unknown COMPLETE BLOOD COUNT 27692 PLT 207 10e9/L 05/06/20 12 Unknown COMPLETE BLOOD COUNT 00611 MPV 10.2 fL 2 Unknown COMPLETE BLOOD COUNT 69497 SUSIE % 74.2 % 2 Unknown COMPLETE BLOOD COUNT 91343 LY % 12.8 % 2 Unknown COMPLETE BLOOD COUNT 06522 MON % 11.0 % 2 Unknown COMPLETE BLOOD COUNT 68210 EOS % 1.7 % 2 Unknown COMPLETE BLOOD COUNT 54051 BASO % 0.3 % 2 Unknown COMPLETE BLOOD COUNT 62902 RDW 13.7 % 2 Unknown COMPLETE BLOOD COUNT 51985 ABS SUSIE 5.79 10e9/L 012 Unknown COMPLETE BLOOD COUNT 10307 ABS LYMPH 1.00 10e9/L 012 Unknown COMPLETE BLOOD COUNT 48509 ABS MONO 0.86 10e9/L 012 Unknown COMPLETE BLOOD COUNT 36326 ABS EOS 0.13 10e9/L 012 Unknown COMPLETE BLOOD COUNT 34603 ABS BASO 0.02 10e9/L 012 Unknown COMPLETE BLOOD COUNT 15447 RDW-SD 44.4 fL 2 Unknown COMPREHENSIVE METABOLIC 06291 AST 13 U/L 2011 Unknown COMPREHENSIVE METABOLIC 90858 ALT 14 IU/L 2011 Unknown COMPREHENSIVE METABOLIC 29011 BUN 17 MG/DL 2011 Unknown COMPREHENSIVE METABOLIC 07080 ALBUMIN 4.5 GM/DL 2011 Unknown COMPREHENSIVE METABOLIC 62808 CHLORIDE 101 MMOL/L 05/06 Unknown COMPREHENSIVE METABOLIC 27940 BILI TOT 0.5 MG/DL 2011 Unknown COMPREHENSIVE METABOLIC 86256 ALK PHOS 42 U/L 2011 Unknown COMPREHENSIVE METABOLIC 49855 SODIUM 141 MMOL/L 05/06 Unknown COMPREHENSIVE METABOLIC 75448 CREATININE 1.02 MG/DL 04/24 Unknown COMPREHENSIVE METABOLIC 22777 CALCIUM 9.7 MG/DL 2011 Unknown COMPREHENSIVE METABOLIC 08048 POTASSIUM 4.6 MMOL/L 05/06 Unknown COMPREHENSIVE METABOLIC 39512 PROT TOT 6.5 GM/DL 2011 Unknown COMPREHENSIVE METABOLIC 57140 Glucose 139 MG/DL 2011 Unknown COMPREHENSIVE METABOLIC 21944 BICARB 29 MMOL/L 2011 Unknown COMPREHENSIVE METABOLIC 32967 ANION GAP 11 MEQ/L 2011 Unknown GFR CALC 3771166 GFR AA >60 ML/MIN 05/06/2012 Unknown GFR CALC 5299225 GFR NON-AA 54.0L ML/MIN 05/06/2012 Unkno wn GLYCOSYLATED HEMOGLOBIN TEST 60972 A1C HPLC 36059-9 6.6 % 1 09/30/2010 Unknown FREE T4 04088 FREE T4 1.00 NG/DL 07/26/2011 Unknown LIPID GROUP 14337 HDL TEST 40 MG/DL 07/26/2011 Unknown LIPID GROUP 14652 TRIG 136 MG/DL 07/26/2011 Unknown LIPID GROUP 87868 TEST LDL 126 MG/DL 07/26/2011 Unknown LIPID GROUP 94331 CHOL 193 MG/DL 07/26/2011 Unknown LIPID GROUP 31442 RCHOL/HDL 4.83 RATIO 07/26/2011 Unknow n COMPREHENSIVE METABOLIC 05171 AST 15 U/L 2010 Unknown COMPREHENSIVE METABOLIC 72283 ALT 13 IU/L 2010 Unknown COMPREHENSIVE METABOLIC 77287 BUN 17 MG/DL 2010 Unknown COMPREHENSIVE METABOLIC 98806 ALBUMIN 4.4 GM/DL 2010 Unknown COMPREHENSIVE METABOLIC 97354 CHLORIDE 102 MMOL/L 07/26 Unknown COMPREHENSIVE METABOLIC 92710 BILI TOT 0.5 MG/DL 2010 Unknown COMPREHENSIVE METABOLIC 89453 ALK PHOS 54 U/L 2010 Unknown COMPREHENSIVE METABOLIC 20174 SODIUM 138 MMOL/L 07/26 Unknown COMPREHENSIVE METABOLIC 04186 CREATININE 0.95 MG/DL 10/2010 Unknown COMPREHENSIVE METABOLIC 89264 CALCIUM 9.3 MG/DL 2010 Unknown COMPREHENSIVE METABOLIC 74056 POTASSIUM 4.3 MMOL/L 07/26 Unknown COMPREHENSIVE METABOLIC 28987 PROT TOT 6.7 GM/DL 2010 Unknown COMPREHENSIVE METABOLIC 41344 Glucose 116 MG/DL 2010 Unknown COMPREHENSIVE METABOLIC 74535 BICARB 28 MMOL/L 2010 Unknown COMPREHENSIVE METABOLIC 56648 ANION GAP 8 MEQ/L 2010 Unknown PSA EQUIMOLAR JONATAN 87580 PSA EQ 1.01 NG/ML 1 Unknown COMPLETE BLOOD COUNT 29990 WBC 6.4 10e9/L 07/26/20 11 Unknown COMPLETE BLOOD COUNT 86171 RBC 4.43 10e12/L 2010 Unknown COMPLETE BLOOD COUNT 66117 HGB 13.2 g/dL 1 Unknown COMPLETE BLOOD COUNT 30070 HCT DET 39.3 % 1 Unknown COMPLETE BLOOD COUNT 48250 MCV 88.7 fL 1 Unknown COMPLETE BLOOD COUNT 78045 MCH 29.8 pg 1 Unknown COMPLETE BLOOD COUNT 83987 MCHC 33.6 g/dL 1 Unknown COMPLETE BLOOD COUNT 82206 PLT 226 10e9/L 07/26/20 11 Unknown COMPLETE BLOOD COUNT 23681 MPV 9.9 fL 1 Unknown COMPLETE BLOOD COUNT 12202 SUSIE % 65.4 % 1 Unknown COMPLETE BLOOD COUNT 38602 LY % 19.7 % 1 Unknown COMPLETE BLOOD COUNT 55933 MON % 10.8 % 1 Unknown COMPLETE BLOOD COUNT 59982 EOS % 3.6 % 1 Unknown COMPLETE BLOOD COUNT 68283 BASO % 0.5 % 1 Unknown COMPLETE BLOOD COUNT 49040 RDW 13.2 % 1 Unknown COMPLETE BLOOD COUNT 39206 ABS SUSIE 4.19 10e9/L 011 Unknown COMPLETE BLOOD COUNT 31609 ABS LYMPH 1.26 10e9/L 011 Unknown COMPLETE BLOOD COUNT 51414 ABS MONO 0.69 10e9/L 011 Unknown COMPLETE BLOOD COUNT 58920 ABS EOS 0.23 10e9/L 11/02/2 011 Unknown COMPLETE BLOOD COUNT 74943 ABS BASO 0.03 10e9/L 011 Unknown COMPLETE BLOOD COUNT 58773 RDW-SD 41.7 fL 1 Unknown THYROID STIMULATING HORMONE 93598 TSH 1.345 uIU/ML 07/26/2011 Unknown GFR CALC 8052232 GFR AA >60 ML/MIN 07/26/2011 Unknown GFR CALC 8043605 GFR NON-AA >60 ML/MIN 07/26/2011 Unknown BRAIN NATRIURETIC PEPTIDE(BNP) 58628 BRAIN PEP 23 pg/mL 01/19/2011 Unknown CANCEL 8808207 CANCEL FOOTNOTE 01/18/2011 Unknown TESTOSTERONE TOTAL 83519 TESTOS TO 138 NG/DL 12/19/2010 Unknown COMPLETE BLOOD COUNT 35047 WBC 8.4 10e9/L 12/08/19 11 Unknown COMPLETE BLOOD COUNT 47743 RBC 4.40 10e12/L 2010 Unknown COMPLETE BLOOD COUNT 81844 HGB 13.3 g/dL 1 Unknown COMPLETE BLOOD COUNT 57638 HCT DET 39.8 % 1 Unknown COMPLETE BLOOD COUNT 26217 MCV 90.5 fL 1 Unknown COMPLETE BLOOD COUNT 51359 MCH 30.2 pg 1 Unknown COMPLETE BLOOD COUNT 58080 MCHC 33.4 g/dL 1 Unknown COMPLETE BLOOD COUNT 62374 PLT 201 10e9/L 12/08/19 11 Unknown COMPLETE BLOOD COUNT 68241 MPV 10.6 fL 1 Unknown COMPLETE BLOOD COUNT 50786 SUSIE % 72.5 % 1 Unknown COMPLETE BLOOD COUNT 10913 LY % 14.8 % 1 Unknown COMPLETE BLOOD COUNT 94509 MON % 10.6 % 1 Unknown COMPLETE BLOOD COUNT 35927 EOS % 1.7 % 1 Unknown COMPLETE BLOOD COUNT 11388 BASO % 0.4 % 1 Unknown COMPLETE BLOOD COUNT 11994 RDW 13.7 % 1 Unknown COMPLETE BLOOD COUNT 07414 ABS SUSIE 6.09 10e9/L 011 Unknown COMPLETE BLOOD COUNT 53073 ABS LYMPH 1.24 10e9/L 011 Unknown COMPLETE BLOOD COUNT 28292 ABS MONO 0.89 10e9/L 03/16/2 011 Unknown COMPLETE BLOOD COUNT 11499 ABS EOS 0.14 10e9/L 011 Unknown COMPLETE BLOOD COUNT 44908 ABS BASO 0.03 10e9/L 011 Unknown COMPLETE BLOOD COUNT 21717 RDW-SD 44.0 fL 1 Unknown LIPID GROUP 98792 HDL TEST 40 MG/DL 12/07/2010 Unknown LIPID GROUP 56884 TRIG 383 MG/DL 12/07/2010 Unknown LIPID GROUP 38572 TEST LDL 82 MG/DL 12/07/2010 Unknown LIPID GROUP 15214 CHOL 199 MG/DL 12/07/2010 Unknown LIPID GROUP 88259 RCHOL/HDL 4.98 RATIO 12/07/2010 Unknow n GFR CALC 4605096 GFR AA >60 ML/MIN 12/07/2010 Unknown GFR CALC 8807579 GFR NON-AA >60 ML/MIN 12/07/2010 Unknown COMPREHENSIVE METABOLIC 04151 AST 29 U/L 2010 Unknown COMPREHENSIVE METABOLIC 34821 ALT 39 IU/L 2010 Unknown COMPREHENSIVE METABOLIC 25723 BUN 17 MG/DL 2010 Unknown COMPREHENSIVE METABOLIC 89058 ALBUMIN 4.9 GM/DL 2010 Unknown COMPREHENSIVE METABOLIC 12559 CHLORIDE 100 MMOL/L 12/07 Unknown COMPREHENSIVE METABOLIC 39129 BILI TOT 0.3 MG/DL 2010 Unknown COMPREHENSIVE METABOLIC 15821 ALK PHOS 53 U/L 2010 Unknown COMPREHENSIVE METABOLIC 59069 SODIUM 137 MMOL/L 12/07 Unknown COMPREHENSIVE METABOLIC 51373 CREATININE 0.98 MG/DL 11/22 Unknown COMPREHENSIVE METABOLIC 75483 CALCIUM 9.5 MG/DL 2010 Unknown COMPREHENSIVE METABOLIC 51413 POTASSIUM 4.3 MMOL/L 12/07 Unknown COMPREHENSIVE METABOLIC 79308 PROT TOT 6.6 GM/DL 2010 Unknown COMPREHENSIVE METABOLIC 94938 Glucose 176 MG/DL 2010 Unknown COMPREHENSIVE METABOLIC 60742 BICARB 28 MMOL/L 2010 Unknown COMPREHENSIVE METABOLIC 34137 ANION GAP 9 MEQ/L 2010 Unknown PSA EQUIMOLAR JONATAN 50348 PSA EQ 0.65 NG/ML 1 Unknown HEMOGLOBIN A1C (GLYCOSYLATED) 04483 A1C HPLC 76676-3 6.9 % 12/07/2010 Unknown Procedures Procedure Codes Date THER/PROPH/DIAG INJ SC/IM CPT-4: 13394 12/25/2019 METHYLPREDNISOLONE INJECTION CPT-4: J2930 12/25/2019 FLU VACC PRSV FREE INC ANTIG 65 AND OLDER CPT-4: 19948 08/07/2019 FLU VACC PRSV FREE INC ANTIG 65 AND OLDER CPT-4: 65615 08/07/2019 ADMIN INFLUENZA VIRUS VAC CPT-4: G0008 08/07/2019 THER/PROPH/DIAG INJ SC/IM CPT-4: 29708 07/14/2019 METHYLPREDNISOLONE INJECTION CPT-4: J2930 07/14/2019 ROUTINE VENIPUNCTURE CPT-4: 34193 06/17/2019 ASSAY THYROID STIM HORMONE CPT-4: 47191 06/17/2019 COMPREHEN METABOLIC PANEL CPT-4: 69354 06/17/2019 COMPLETE CBC W/AUTO DIFF WBC CPT-4: 57028 06/17/2019 ASSAY OF IRON CPT-4: 39525 06/17/2019 VITAMIN B-12 CPT-4: 51032 06/17/2019 RBC SED RATE AUTOMATED CPT-4: 31902 06/17/2019 THER/PROPH/DIAG INJ SC/IM CPT-4: 48125 06/10/2019 THER/PROPH/DIAG INJ SC/IM CPT-4: 32679 06/02/2019 THER/PROPH/DIAG INJ SC/IM CPT-4: 34890 05/27/2019 THER/PROPH/DIAG INJ SC/IM CPT-4: 46883 05/12/2019 ROUTINE VENIPUNCTURE CPT-4: 63198 05/08/2019 COMPREHEN METABOLIC PANEL CPT-4: 66161 05/08/2019 COMPLETE CBC W/AUTO DIFF WBC CPT-4: 10247 05/08/2019 A1C HPLC CPT-4: 19237 05/08/2019 VITAMIN D TOTAL (25 HYDROXY) CPT-4: 16478 05/08/2019 ASSAY OF IRON CPT-4: 15589 05/08/2019 ASSAY OF FERRITIN CPT-4: 85427 05/08/2019 VITAMIN B-12 CPT-4: 04600 05/08/2019 THER/PROPH/DIAG INJ SC/IM CPT-4: 53515 03/21/2019 METHYLPREDNISOLONE INJECTION CPT-4: J2930 03/21/2019 THER/PROPH/DIAG INJ SC/IM CPT-4: 41889 03/13/2019 METHYLPREDNISOLONE INJECTION CPT-4: J2930 03/13/2019 THER/PROPH/DIAG INJ SC/IM CPT-4: 46217 12/25/2018 METHYLPREDNISOLONE INJECTION CPT-4: J2930 12/25/2018 ROUTINE VENIPUNCTURE CPT-4: 65032 12/09/2018 ASSAY OF FREE THYROXINE CPT-4: 73868 12/09/2018 ASSAY THYROID STIM HORMONE CPT-4: 36552 12/09/2018 COMPREHEN METABOLIC PANEL CPT-4: 87019 12/09/2018 COMPLETE CBC W/AUTO DIFF WBC CPT-4: 18227 12/09/2018 LIPID PANEL CPT-4: 02217 12/09/2018 A1C HPLC CPT-4: 58886 12/09/2018 PRESCRIP TRANSMIT VIA ERX SY CPT-4: G8553 08/21/2018 PRESCRIP TRANSMIT VIA ERX SY CPT-4: G8553 08/07/2018 THER/PROPH/DIAG INJ SC/IM CPT-4: 89961 05/23/2018 METHYLPREDNISOLONE INJECTION CPT-4: J2930 05/23/2018 PRESCRIP TRANSMIT VIA ERX SY CPT-4: G8553 05/02/2018 THER/PROPH/DIAG INJ SC/IM CPT-4: 67844 04/29/2018 METHYLPREDNISOLONE INJECTION CPT-4: J2930 04/29/2018 DEXAMETHASONE SODIUM PHOS CPT-4: J1100 04/22/2018 THER/PROPH/DIAG INJ SC/IM CPT-4: 60385 04/22/2018 TRIAMCINOLONE ACET INJ NOS CPT-4: J3301 04/22/2018 PRESCRIP TRANSMIT VIA ERX SY CPT-4: G8553 04/22/2018 PRESCRIP TRANSMIT VIA ERX SY CPT-4: G8553 01/23/2018 URINALYSIS NONAUTO W/O SCOPE CPT-4: 66446 01/02/2018 URINE CULTURE/ COLONY COUNT CPT-4: 84316 01/02/2018 PRESCRIP TRANSMIT VIA ERX SY CPT-4: G8553 01/02/2018 PRESCRIP TRANSMIT VIA ERX SY CPT-4: G8553 12/28/2017 PRESCRIP TRANSMIT VIA ERX SY CPT-4: G8553 12/21/2017 CEFTRIAXONE SODIUM INJECTION CPT-4: J0696 12/17/2017 THER/PROPH/DIAG INJ SC/IM CPT-4: 90127 12/17/2017 THER/PROPH/DIAG INJ SC/IM CPT-4: 28620 12/17/2017 TRIAMCINOLONE ACET INJ NOS CPT-4: J3301 12/17/2017 PRESCRIP TRANSMIT VIA ERX SY CPT-4: G8553 12/17/2017 DRAIN/INJECT JOINT/BURSA CPT-4: 35379 12/11/2017 TRIAMCINOLONE ACET INJ NOS CPT-4: J3301 12/11/2017 DEXAMETHASONE SODIUM PHOS CPT-4: J1100 12/11/2017 DESTRUCT PREMALG LESION (Cryosurgery) CPT-4: 85484 PRESCRIP TRANSMIT VIA ERX SY CPT-4: G8553 10/17/2017 DEXAMETHASONE SODIUM PHOS CPT-4: J1100 08/02/2017 THER/PROPH/DIAG INJ SC/IM CPT-4: 15351 08/02/2017 TRIAMCINOLONE ACET INJ NOS CPT-4: J3301 08/02/2017 PRESCRIP TRANSMIT VIA ERX SY CPT-4: G8553 08/02/2017 PNEUMOCOCCAL VACC 23 OLIVIA IM CPT-4: 72750 07/24/2017 ADMIN PNEUMOCOCCAL VACCINE CPT-4: G0009 07/24/2017 ALBUTEROL NON-COMP UNIT CPT-4: J7613 07/02/2017 AIRWAY INHALATION TREATMENT CPT-4: 43543 07/02/2017 THER/PROPH/DIAG INJ SC/IM CPT-4: 36584 07/02/2017 METHYLPREDNISOLONE INJECTION CPT-4: J2930 07/02/2017 PRESCRIP TRANSMIT VIA ERX SY CPT-4: G8553 05/29/2017 ROUTINE VENIPUNCTURE CPT-4: 38630 04/17/2017 ASSAY OF IRON CPT-4: 83711 04/17/2017 VITAMIN B-12 CPT-4: 60052 04/17/2017 COMPREHEN METABOLIC PANEL CPT-4: 01885 04/17/2017 COMPLETE CBC W/AUTO DIFF WBC CPT-4: 40043 04/17/2017 ASSAY OF FERRITIN CPT-4: 16429 04/17/2017 ASSAY THYROID STIM HORMONE CPT-4: 67516 04/17/2017 A1C HPLC CPT-4: 67465 04/17/2017 DRAIN/INJECT JOINT/BURSA CPT-4: 09263 02/01/2017 TRIAMCINOLONE ACET INJ NOS CPT-4: J3301 02/01/2017 DEXAMETHASONE SODIUM PHOS CPT-4: J1100 02/01/2017 ROUTINE VENIPUNCTURE CPT-4: 70995 12/27/2016 COMPLETE CBC W/AUTO DIFF WBC CPT-4: 08398 12/27/2016 ROUTINE VENIPUNCTURE CPT-4: 90090 12/21/2016 COMPLETE CBC W/AUTO DIFF WBC CPT-4: 68784 12/21/2016 ROUTINE VENIPUNCTURE CPT-4: 47529 12/12/2016 COMPLETE CBC W/AUTO DIFF WBC CPT-4: 49368 12/12/2016 PRESCRIP TRANSMIT VIA ERX SY CPT-4: G8553 10/31/2016 PRESCRIP TRANSMIT VIA ERX SY CPT-4: G8553 10/03/2016 PRESCRIP TRANSMIT VIA ERX SY CPT-4: G8553 09/04/2016 DESTRUCT PREMALG LESION (Cryosurgery) CPT-4: 11109 DESTRUCT PREMALG LES 2-14 CPT-4: 88867 08/22/2016 PRESCRIP TRANSMIT VIA ERX SY CPT-4: G8553 08/10/2016 PRESCRIP TRANSMIT VIA ERX SY CPT-4: G8553 07/06/2016 FLU VACC PRSV FREE INC ANTIG 65 AND OLDER CPT-4: 63547 06/13/2016 PNEUMOCOCCAL VACC 13 OLIVIA IM CPT-4: 84719 06/13/2016 ADMIN INFLUENZA VIRUS VAC CPT-4: G0008 06/13/2016 ADMIN PNEUMOCOCCAL VACCINE CPT-4: G0009 06/13/2016 CERUM REMOVAL CPT-4: 26581 04/05/2016 PRESCRIP TRANSMIT VIA ERX SY CPT-4: G8553 04/03/2016 ROUTINE VENIPUNCTURE CPT-4: 71636 03/06/2016 ASSAY OF FREE THYROXINE CPT-4: 98914 03/06/2016 ASSAY THYROID STIM HORMONE CPT-4: 27138 03/06/2016 COMPREHEN METABOLIC PANEL CPT-4: 08158 03/06/2016 COMPLETE CBC W/AUTO DIFF WBC CPT-4: 40628 03/06/2016 LIPID PANEL CPT-4: 54870 03/06/2016 ASSAY OF PSA TOTAL CPT-4: 12901 03/06/2016 TESTOSTERONE TOTAL - MALE CPT-4: 99876 03/06/2016 A1C HPLC CPT-4: 95908 03/06/2016 ASSAY OF IRON CPT-4: 90743 03/06/2016 VITAMIN B-12 CPT-4: 30494 03/06/2016 INJ TENDON SHEATH/LIGAMENT CPT-4: 98972 02/17/2016 TRIAMCINOLONE ACET INJ NOS CPT-4: J3301 02/17/2016 DEXAMETHASONE SODIUM PHOS CPT-4: J1100 02/17/2016 PRESCRIP TRANSMIT VIA ERX SY CPT-4: G8553 01/31/2016 PRESCRIP TRANSMIT VIA ERX SY CPT-4: G8553 12/30/2015 PRESCRIP TRANSMIT VIA ERX SY CPT-4: G8553 12/06/2015 PRESCRIP TRANSMIT VIA ERX SY CPT-4: G8553 11/15/2015 PPPS, subseq visit CPT-4: G0439 10/05/2015 MICROALBUMIN QUANTITATIVE CPT-4: 34435 10/05/2015 PROTEIN/CREAT URINE WITH RATIO CPT-4: 90532|92339 6 ROUTINE VENIPUNCTURE CPT-4: 32454 07/01/2015 ASSAY OF FREE THYROXINE CPT-4: 12146 07/01/2015 ASSAY THYROID STIM HORMONE CPT-4: 57946 07/01/2015 COMPLETE CBC W/AUTO DIFF WBC CPT-4: 71907 07/01/2015 LIPID PANEL CPT-4: 43392 07/01/2015 ASSAY OF PSA TOTAL CPT-4: 32752 07/01/2015 AEROBIC WOUND CULTURE & STN CPT-4: 20618 06/28/2015 PRESCRIP TRANSMIT VIA ERX SY CPT-4: G8553 06/28/2015 AEROBIC WOUND CULTURE & STN CPT-4: 42913 06/03/2015 PRESCRIP TRANSMIT VIA ERX SY CPT-4: G8553 06/03/2015 ROUTINE VENIPUNCTURE CPT-4: 38541 06/01/2015 COMPREHEN METABOLIC PANEL CPT-4: 29418 06/01/2015 A1C HPLC CPT-4: 90862 06/01/2015 COMPREHEN METABOLIC PANEL CPT-4: 36059 02/25/2015 A1C HPLC CPT-4: 24692 02/25/2015 DESTRUCT PREMALG LESION (Cryosurgery) CPT-4: 85075 PROTEIN/CREAT URINE WITH RATIO CPT-4: 84222|53040 5 MICROALBUMIN QUANTITATIVE CPT-4: 44082 10/27/2014 INFLUENZA ASSAY W/OPTIC CPT-4: 88822 10/21/2014 PRESCRIP TRANSMIT VIA ERX SY CPT-4: G8553 10/06/2014 PRESCRIP TRANSMIT VIA ERX SY CPT-4: G8553 09/21/2014 PRESCRIP TRANSMIT VIA ERX SY CPT-4: G8553 09/02/2014 MICROALBUMIN QUANTITATIVE CPT-4: 17548 08/27/2014 PROTEIN/CREAT URINE WITH RATIO CPT-4: 13886|31627 4 PPPS, subseq visit CPT-4: G0439 08/10/2014 ROUTINE VENIPUNCTURE CPT-4: 10683 08/05/2014 ASSAY OF FREE THYROXINE CPT-4: 46059 08/05/2014 ASSAY THYROID STIM HORMONE CPT-4: 12786 08/05/2014 COMPREHEN METABOLIC PANEL CPT-4: 01200 08/05/2014 COMPLETE CBC W/AUTO DIFF WBC CPT-4: 44275 08/05/2014 LIPID PANEL CPT-4: 24336 08/05/2014 A1C HPLC CPT-4: 73163 08/05/2014 FLUZONE, 5ML (Medicare) CPT-4: Q2038 08/05/2014 ADMIN INFLUENZA VIRUS VAC CPT-4: G0008 08/05/2014 METHYLPREDNISOLONE 40 MG INJ CPT-4: J1030 12/16/2013 TRIAMCINOLONE ACET INJ NOS CPT-4: J3301 12/16/2013 DRAIN/INJECT JOINT/BURSA CPT-4: 26664 12/16/2013 PRESCRIP TRANSMIT VIA ERX SY CPT-4: G8553 10/09/2013 THER/PROPH/DIAG INJ SC/IM CPT-4: 83591 09/18/2013 METHYLPREDNISOLONE 40 MG INJ CPT-4: J1030 09/18/2013 TRIAMCINOLONE ACET INJ NOS CPT-4: J3301 09/18/2013 PRESCRIP TRANSMIT VIA ERX SY CPT-4: G8553 09/18/2013 PRESCRIP TRANSMIT VIA ERX SY CPT-4: G8553 08/13/2013 ROUTINE VENIPUNCTURE CPT-4: 29869 06/25/2013 ASSAY OF FREE THYROXINE CPT-4: 71404 06/25/2013 ASSAY THYROID STIM HORMONE CPT-4: 10177 06/25/2013 COMPREHEN METABOLIC PANEL CPT-4: 66568 06/25/2013 COMPLETE CBC W/AUTO DIFF WBC CPT-4: 81309 06/25/2013 LIPID PANEL CPT-4: 39534 06/25/2013 A1C GLYCOSYLATED HEMOGLOBIN TEST CPT-4: 48687 013 ROUTINE VENIPUNCTURE CPT-4: 19817 04/09/2013 COMPLETE CBC W/AUTO DIFF WBC CPT-4: 88614 04/09/2013 MYCOPLASMA ANTIBODY, IFA CPT-4: 57785O2 04/09/2013 ROUTINE VENIPUNCTURE CPT-4: 74305 02/11/2013 ASSAY OF FREE THYROXINE CPT-4: 80482 02/11/2013 ASSAY THYROID STIM HORMONE CPT-4: 50149 02/11/2013 COMPREHEN METABOLIC PANEL CPT-4: 59100 02/11/2013 COMPLETE CBC W/AUTO DIFF WBC CPT-4: 62655 02/11/2013 VITAMIN B 12 FOLIC ACID CPT-4: 36850|45713 02/11/2013 C-REACTIVE PROTEIN CPT-4: 47679 02/11/2013 A1C GLYCOSYLATED HEMOGLOBIN TEST CPT-4: 30656 013 ASSAY OF BLOOD/URIC ACID CPT-4: 81554 02/11/2013 CEFTRIAXONE SODIUM INJECTION CPT-4: J0696 01/31/2013 THER/PROPH/DIAG INJ SC/IM CPT-4: 37199 01/31/2013 THER/PROPH/DIAG INJ SC/IM CPT-4: 02067 01/31/2013 METHYLPREDNISOLONE 40 MG INJ CPT-4: J1030 01/31/2013 TRIAMCINOLONE ACET INJ NOS CPT-4: J3301 01/31/2013 ROUTINE VENIPUNCTURE CPT-4: 60849 09/19/2012 COMPREHEN METABOLIC PANEL CPT-4: 55198 09/19/2012 LIPID PANEL CPT-4: 52137 09/19/2012 A1C GLYCOSYLATED HEMOGLOBIN TEST CPT-4: 89106 012 PNEUMOCOCCAL VACC 23 OLIVIA IM CPT-4: 19710 07/10/2012 FLUZONE, 5ML (Medicare) CPT-4: Q2038 07/10/2012 ADMIN INFLUENZA VIRUS VAC CPT-4: G0008 07/10/2012 ADMIN PNEUMOCOCCAL VACCINE CPT-4: G0009 07/10/2012 ROUTINE VENIPUNCTURE CPT-4: 29946 05/06/2012 ASSAY OF FREE THYROXINE CPT-4: 30301 05/06/2012 ASSAY THYROID STIM HORMONE CPT-4: 42197 05/06/2012 COMPREHEN METABOLIC PANEL CPT-4: 24102 05/06/2012 COMPLETE CBC W/AUTO DIFF WBC CPT-4: 43472 05/06/2012 LIPID PANEL CPT-4: 33874 05/06/2012 A1C GLYCOSYLATED HEMOGLOBIN TEST CPT-4: 81980 012 IMMUNIZATION ADMIN CPT-4: 15944 02/05/2012 FLUZONE, 5ML (Medicare) CPT-4: Q2038 08/10/2011 ADMIN INFLUENZA VIRUS VAC CPT-4: G0008 08/10/2011 ROUTINE VENIPUNCTURE CPT-4: 82105 07/26/2011 ASSAY OF FREE THYROXINE CPT-4: 69322 07/26/2011 ASSAY THYROID STIM HORMONE CPT-4: 01047 07/26/2011 COMPREHEN METABOLIC PANEL CPT-4: 87183 07/26/2011 COMPLETE CBC W/AUTO DIFF WBC CPT-4: 62249 07/26/2011 LIPID PANEL CPT-4: 40182 07/26/2011 A1C GLYCOSYLATED HEMOGLOBIN TEST CPT-4: 81342 011 ASSAY OF PSA TOTAL CPT-4: 34885 07/26/2011 ROUTINE VENIPUNCTURE CPT-4: 08580 01/19/2011 ASSAY OF NATRIURETIC PEPTIDE CPT-4: 05764 01/19/2011 THER/PROPH/DIAG INJ SC/IM CPT-4: 12818 01/19/2011 CEFTRIAXONE SODIUM INJECTION CPT-4: J0696 01/19/2011 METHYLPREDNISOLONE INJECTION CPT-4: J2930 01/19/2011 THER/PROPH/DIAG INJ SC/IM CPT-4: 12431 01/19/2011 THER/PROPH/DIAG INJ SC/IM CPT-4: 83991 01/18/2011 CEFTRIAXONE SODIUM INJECTION CPT-4: J0696 01/18/2011 METHYLPREDNISOLONE INJECTION CPT-4: J2930 01/18/2011 THER/PROPH/DIAG INJ SC/IM CPT-4: 03931 01/18/2011 THER/PROPH/DIAG INJ SC/IM CPT-4: 67683 12/21/2010 TESTOSTERONE CYPIONAT 100 MG CPT-4: J1070 12/21/2010 ROUTINE VENIPUNCTURE CPT-4: 59128 12/19/2010 TESTOSTERONE TOTAL - MALE CPT-4: 66664 12/19/2010 ROUTINE VENIPUNCTURE CPT-4: 75549 12/07/2010 COMPLETE CBC W/AUTO DIFF WBC CPT-4: 28716 12/07/2010 COMPREHEN METABOLIC PANEL CPT-4: 51215 12/07/2010 LIPID PANEL CPT-4: 82094 12/07/2010 A1C GLYCOSYLATED HEMOGLOBIN TEST CPT-4: 28385 011 ASSAY OF PSA TOTAL CPT-4: 33963 12/07/2010 ROUTINE VENIPUNCTURE CPT-4: 29038 04/05/2010 PRESCRIP TRANSMIT VIA ERX SY CPT-4: G8553 04/05/2010 ROUTINE VENIPUNCTURE CPT-4: 03885 01/13/2010 METHYLPREDNISOLONE INJECTION CPT-4: J2930 12/22/2009 THER/PROPH/DIAG INJ SC/IM CPT-4: 31909 12/22/2009 THER/PROPH/DIAG INJ SC/IM CPT-4: 45082 12/22/2009 CEFTRIAXONE SODIUM INJECTION CPT-4: J0696 12/22/2009 ROUTINE VENIPUNCTURE CPT-4: 14969 12/22/2009 COMPLETE CBC W/AUTO DIFF WBC CPT-4: 89016 12/22/2009 RBC SED RATE, AUTOMATED CPT-4: 49472 12/22/2009 RPR FE/E/EN/L/M 20.1-30.0 CM CPT-4: 66267 12/22/2009 EKG FOR INITIAL PREVENT EXAM CPT-4: G0403 12/22/2009 THER/PROPH/DIAG INJ SC/IM CPT-4: 17362 12/16/2009 KETOROLAC TROMETHAMINE INJ CPT-4: J1885 12/16/2009 [...] 1: 126/68 Code: 8480-6 BMI: 30.2 Code: 33602-4 Heart Rate 1: 92 bpm Height: 6' Respiratory Rate: 22 bpm SpO2: 94% Tempera ture: 36.9 (C) / 98.5 (F) Weight: 223 lbs 08/21/2018 Blood Pressure 1: 160/70 Code: 8480-6 Heart Rate 1: 79 bpm Respiratory Rate: 20 bpm SpO2: 94% Temperature: 36.7 (C) / 98.0 (F) We ight: 226 lbs 8 oz 08/07/2018 Blood Pressure 1: 138/70 Code: 8480-6 BMI: 30.1 Code: 80612-7 Heart Rate 1: 80 bpm Height: 6' Respiratory Rate: 20 bpm SpO2: 94% Tempera ture: 36.9 (C) / 98.5 (F) Weight: 222 lbs 05/23/2018 Blood Pressure 1: 148/66 Code: 8480-6 BMI: 30.0 Code: 63413-0 Heart Rate 1: 96 bpm Height: 6' Respiratory Rate: 22 bpm SpO2: 94% Tempera ture: 37.3 (C) / 99.1 (F) Weight: 221 lbs 05/02/2018 Blood Pressure 1: 146/78 Code: 8480-6 BMI: 29.6 Code: 10134-5 Heart Rate 1: 78 bpm Height: 6' Respiratory Rate: 26 bpm SpO2: 94% Tempera ture: 35.7 (C) / 96.2 (F) Weight: 218 lbs 04/29/2018 Blood Pressure 1: 142/62 Code: 8480-6 BMI: 28.6 Code: 93360-0 Heart Rate 1: 82 bpm Height: 6' Respiratory Rate: 22 bpm SpO2: 98% Tempera ture: 36.4 (C) / 97.6 (F) Weight: 211 lbs 04/22/2018 Blood Pressure 1: 126/64 Code: 8480-6 BMI: 30.0 Code: 83551-6 Heart Rate 1: 96 bpm Height: 6' [...] 1: 144/78 Code: 8480-6 BMI: 30.7 Code: 79530-4 Heart Rate 1: 92 bpm Height: 6' Respiratory Rate: 28 bpm SpO2: 94% Tempera ture: 36.9 (C) / 98.4 (F) Weight: 226 lbs 12/28/2017 Blood Pressure 1: 136/80 Code: 8480-6 Heart Rate 1: 92 bpm Respiratory Rate: 28 bpm SpO2: 94% Temperature: 36.7 (C) / 98.1 (F) 12/21/2017 Blood Pressure 1: 146/84 Code: 8480-6 BMI: 31.1 Code: 63862-6 Heart Rate 1: 84 bpm Height: 6' [...] 1: 142/64 Code: 8480-6 BMI: 31.3 Code: 67085-9 Heart Rate 1: 98 bpm Height: 6' Respiratory Rate: 24 bpm SpO2: 94% Tempera ture: 36.4 (C) / 97.6 (F) Weight: 231 lbs 10/17/2017 Blood Pressure 1: 140/68 Code: 8480-6 BMI: 31.7 Code: 16437-7 Heart Rate 1: 88 bpm Height: 6' Respiratory Rate: 20 bpm SpO2: 94% Tempera ture: 36.8 (C) / 98.3 (F) Weight: 234 lbs 08/02/2017 Blood Pressure 1: 142/80 Code: 8480-6 BMI: 31.1 Code: 19100-0 Heart Rate 1: 86 bpm Height: 6' Respiratory Rate: 20 bpm SpO2: 90% Tempera ture: 35.9 (C) / 96.7 (F) Weight: 229 lbs 07/02/2017 Blood Pressure 1: 146/64 Code: 8480-6 BMI: 29.6 Code: 49777-7 Heart Rate 1: 96 bpm Height: 6' Respiratory Rate: 20 bpm Temperature: 36 .4 (C) / 97.6 (F) Weight: 218 lbs 05/29/2017 Blood Pressure 1: 152/68 Code: 8480-6 BMI: 31.5 Code: 33545-0 Heart Rate 1: 100 bpm Height: 6' Respiratory Rate: 20 bpm SpO2: 92% Tempera ture: 36.9 (C) / 98.4 (F) Weight: 232 lbs 02/01/2017 Blood Pressure 1: 146/64 Code: 8480-6 BMI: 30.7 Code: 36796-9 Heart Rate 1: 76 bpm Height: 6' Respiratory Rate: 20 bpm SpO2: 95% Tempera ture: 36.8 (C) / 98.2 (F) Weight: 226 lbs 01/29/2017 Blood Pressure 1: 146/78 Code: 8480-6 Heart Rate 1: 84 bpm Respiratory Rate: 20 bpm SpO2: 96% Temperature: 36.1 (C) / 97.0 (F) We ight: 226 lbs 12/21/2016 Blood Pressure 1: 126/60 Code: 8480-6 BMI: 30.8 Code: 55925-3 Heart Rate 1: 88 bpm Height: 6' Respiratory Rate: 22 bpm SpO2: 94% Tempera ture: 36.7 (C) / 98.0 (F) Weight: 227 lbs 12/14/2016 Blood Pressure 1: 126/70 Code: 8480-6 BMI: 29.8 Code: 59500-4 Heart Rate 1: 92 bpm Height: 6' Respiratory Rate: 22 bpm SpO2: 93% Tempera ture: 36.8 (C) / 98.2 (F) Weight: 220 lbs 11/14/2016 Blood Pressure 1: 128/62 Code: 8480-6 Heart Rate 1: 100 bpm Respiratory Rate: 20 bpm SpO2: 96% Temperature: 36.6 (C) / 97.8 (F) We ight: 220 lbs 10/31/2016 Blood Pressure 1: 142/60 Code: 8480-6 BMI: 30.1 Code: 80507-9 Heart Rate 1: 112 bpm Height: 6' Respiratory Rate: 24 bpm SpO2: 93% Tempera ture: 37.1 (C) / 98.7 (F) Weight: 222 lbs 10/03/2016 Blood Pressure 1: 136/78 Code: 8480-6 Heart Rate 1: 106 bpm Respiratory Rate: 24 bpm SpO2: 93% Temperature: 36.6 (C) / 97.8 (F) We ight: 221 lbs 09/04/2016 Blood Pressure 1: 112/44 Code: 8480-6 BMI: 30.1 Code: 57128-3 Heart Rate 1: 90 bpm Height: 6' Respiratory Rate: 20 bpm SpO2: 93% Tempera ture: 36.6 (C) / 97.9 (F) Weight: 222 lbs 08/22/2016 Blood Pressure 1: 142/68 Code: 8480-6 BMI: 30.4 Code: 69670-1 Heart Rate 1: 100 bpm Height: 6' Respiratory Rate: 24 bpm SpO2: 93% Tempera ture: 36.7 (C) / 98.1 (F) Weight: 224 lbs 08/10/2016 Blood Pressure 1: 134/60 Code: 8480-6 BMI: 30.2 Code: 62472-6 Heart Rate 1: 76 bpm Height: 6' [...] 1: 122/72 Code: 8480-6 BMI: 30.7 Code: 13290-3 Heart Rate 1: 96 bpm Height: 6' Respiratory Rate: 22 bpm SpO2: 96% Tempera ture: 35.9 (C) / 96.7 (F) Weight: 226 lbs 04/03/2016 Blood Pressure 1: 146/64 Code: 8480-6 BMI: 30.8 Code: 72803-6 Heart Rate 1: 76 bpm Height: 6' Respiratory Rate: 20 bpm Temperature: 36 .8 (C) / 98.2 (F) Weight: 227 lbs 03/02/2016 Blood Pressure 1: 148/60 Code: 8480-6 BMI: 31.1 Code: 16349-0 Heart Rate 1: 80 bpm Height: 6' Respiratory Rate: 22 bpm SpO2: 94% Tempera ture: 36.6 (C) / 97.8 (F) Weight: 229 lbs 02/17/2016 Blood Pressure 1: 132/60 Code: 8480-6 BMI: 31.3 Code: 75927-0 Heart Rate 1: 80 bpm Height: 6' Respiratory Rate: 20 bpm Temperature: 36 .9 (C) / 98.4 (F) Weight: 231 lbs 02/14/2016 Blood Pressure 1: 126/70 Code: 8480-6 BMI: 31.3 Code: 98953-3 Heart Rate 1: 80 bpm Height: 6' Respiratory Rate: 24 bpm SpO2: 95% Tempera ture: 36.9 (C) / 98.5 (F) Weight: 231 lbs 01/31/2016 Blood Pressure 1: 136/60 Code: 8480-6 Heart Rate 1: 76 bpm Respiratory Rate: 22 bpm Temperature: 37.0 (C) / 98.6 (F) Weight: 230 lbs 12/30/2015 Blood Pressure 1: 128/58 Code: 8480-6 BMI: 31.2 Code: 33217-1 Heart Rate 1: 80 bpm Height: 6' Respiratory Rate: 20 bpm Temperature: 36 .8 (C) / 98.2 (F) Weight: 230 lbs 12/16/2015 Blood Pressure 1: 122/60 Code: 8480-6 BMI: 32.0 Code: 04085-9 Heart Rate 1: 84 bpm Height: 6' Respiratory Rate: 24 bpm Temperature: 37 .1 (C) / 98.7 (F) Weight: 236 lbs 12/06/2015 Blood Pressure 1: 162/74 Code: 8480-6 BMI: 32.5 Code: 53445-7 Heart Rate 1: 90 bpm Height: 6' Respiratory Rate: 20 bpm SpO2: 96% Tempera ture: 36.4 (C) / 97.6 (F) Weight: 240 lbs 11/15/2015 Blood Pressure 1: 166/80 Code: 8480-6 BMI: 32.4 Code: 40290-7 Heart Rate 1: 92 bpm Height: 6' Respiratory Rate: 28 bpm Temperature: 36 .5 (C) / 97.7 (F) Weight: 239 lbs 10/05/2015 Blood Pressure 1: 146/76 Code: 8480-6 BMI: 32.4 Code: 19896-9 Heart Rate 1: 88 bpm Height: 6' Respiratory Rate: 28 bpm Temperature: 37 .1 (C) / 98.7 (F) Weight: 239 lbs 07/22/2015 Blood Pressure 1: 144/68 Code: 8480-6 BMI: 31.9 Code: 24905-8 Heart Rate 1: 88 bpm Height: 6' [...] 1: 142/64 Code: 8480-6 BMI: 32.1 Code: 45753-5 Heart Rate 1: 80 bpm Height: 6' Respiratory Rate: 18 bpm Temperature: 36 .4 (C) / 97.6 (F) Weight: 237 lbs 06/07/2015 Blood Pressure 1: 164/58 Code: 8480-6 BMI: 32.1 Code: 25591-6 Heart Rate 1: 88 bpm Height: 6' Respiratory Rate: 20 bpm Temperature: 36 .6 (C) / 97.9 (F) Weight: 237 lbs 06/03/2015 Blood Pressure 1: 152/64 Code: 8480-6 BMI: 32.1 Code: 70846-4 Heart Rate 1: 96 bpm Height: 6' Respiratory Rate: 20 bpm Temperature: 37 .4 (C) / 99.3 (F) Weight: 237 lbs 06/01/2015 Blood Pressure 1: 136/70 Code: 8480-6 BMI: 31.7 Code: 68624-7 Heart Rate 1: 72 bpm Height: 6' Respiratory Rate: 22 bpm SpO2: 94% Tempera ture: 36.6 (C) / 97.9 (F) Weight: 234 lbs 02/25/2015 Blood Pressure 1: 146/80 Code: 8480-6 BMI: 32.4 Code: 26611-3 Heart Rate 1: 84 bpm Height: 6' Respiratory Rate: 28 bpm Temperature: 36 .7 (C) / 98.0 (F) Weight: 239 lbs 10/27/2014 Blood Pressure 1: 168/70 Code: 8480-6 BMI: 32.0 Code: 18466-7 Heart Rate 1: 80 bpm Height: 6' Respiratory Rate: 30 bpm SpO2: 98% Tempera ture: 36.4 (C) / 97.6 (F) Weight: 236 lbs 10/21/2014 Blood Pressure 1: 152/58 Code: 8480-6 BMI: 32.1 Code: 19743-6 Heart Rate 1: 78 bpm Height: 6' Respiratory Rate: 20 bpm Temperature: 37 .8 (C) / 100.1 (F) Weight: 237 lbs 10/06/2014 Blood Pressure 1: 132/64 Code: 8480-6 BMI: 32.5 Code: 37365-8 Heart Rate 1: 88 bpm Height: 6' Respiratory Rate: 32 bpm SpO2: 94% Tempera ture: 36.8 (C) / 98.2 (F) Weight: 240 lbs 09/21/2014 Blood Pressure 1: 134/68 Code: 8480-6 BMI: 32.4 Code: 69549-9 Heart Rate 1: 96 bpm Height: 6' Respiratory Rate: 30 bpm Temperature: 36 .7 (C) / 98.1 (F) Weight: 239 lbs 09/08/2014 Blood Pressure 1: 128/74 Code: 8480-6 BMI: 32.4 Code: 54067-8 Heart Rate 1: 82 bpm Height: 6' Respiratory Rate: 28 bpm SpO2: 93% Tempera ture: 36.6 (C) / 97.8 (F) Weight: 239 lbs 09/02/2014 Blood Pressure 1: 164/78 Code: 8480-6 Heart Rate 1: 86 bpm Respiratory Rate: 22 bpm SpO2: 96% Temperature: 36.1 (C) / 97.0 (F) We ight: 239 lbs 08/10/2014 Blood Pressure 1: 152/60 Code: 8480-6 BMI: 32.8 Code: 78959-1 Heart Rate 1: 80 bpm Height: 6' [...] 1: 146/80 Code: 8480-6 BMI: 33.9 Code: 78473-2 Heart Rate 1: 80 bpm Height: 6' [...] 1: 148/78 Code: 8480-6 BMI: 30.5 Code: 50136-9 Heart Rate 1: 84 bpm Height: 6' Respiratory Rate: 28 bpm SpO2: 97% Tempera ture: 36.4 (C) / 97.5 (F) Weight: 225 lbs 08/06/2013 Blood Pressure 1: 158/70 Code: 8480-6 Heart Rate 1: 110 bpm Respiratory Rate: 22 bpm SpO2: 88% Temperature: 39.7 (C) / 103.4 (F) W eight: 07/16/2013 Blood Pressure 1: 148/82 Code: 8480-6 BMI: 31.9 Code: 87329-4 Heart Rate 1: 80 bpm Height: 6' Respiratory Rate: 20 bpm Temperature: 36 .6 (C) / 97.9 (F) Weight: 235 lbs 04/09/2013 Blood Pressure 1: 142/78 Code: 8480-6 BMI: 31.5 Code: 25508-4 Heart Rate 1: 88 bpm Height: 6' Respiratory Rate: 32 bpm SpO2: 95% Tempera ture: 37.0 (C) / 98.6 (F) Weight: 232 lbs 02/11/2013 Blood Pressure 1: 146/70 Code: 8480-6 Heart Rate 1: 88 bpm Respiratory Rate: 20 bpm Temperature: 36.8 (C) / 98.3 (F) Weight: 230 lbs 01/31/2013 Blood Pressure 1: 128/70 Code: 8480-6 BMI: 31.6 Code: 88066-9 Heart Rate 1: 84 bpm Height: 6' Respiratory Rate: 24 bpm SpO2: 92% Tempera ture: 36.7 (C) / 98.0 (F) Weight: 233 lbs 01/20/2013 Blood Pressure 1: 148/64 Code: 8480-6 BMI: 31.6 Code: 00584-7 Heart Rate 1: 68 bpm Height: 6' Temperature: 36.1 (C) / 97.0 (F) Weight: 233 lbs 12/19/2012 Blood Pressure 1: 128/68 Code: 8480-6 BMI: 32.0 Code: 93773-4 Heart Rate 1: 64 bpm Height: 6' Temperature: 36.7 (C) / 98.0 (F) Weight: 236 lbs 10/21/2012 Blood Pressure 1: 142/64 Code: 8480-6 BMI: 30.9 Code: 23104-1 Heart Rate 1: 74 bpm Height: 6' Temperature: 36.2 (C) / 97.1 (F) Weight: 228 lbs 09/18/2012 Blood Pressure 1: 126/60 Code: 8480-6 BMI: 31.3 Code: 47147-9 Heart Rate 1: 88 bpm Height: 6' Respiratory Rate: 20 bpm Temperature: 36 .5 (C) / 97.7 (F) Weight: 231 lbs 08/28/2012 Blood Pressure 1: 132/68 Code: 8480-6 BMI: 31.5 Code: 73410-2 Heart Rate 1: 92 bpm Height: 6' Respiratory Rate: 30 bpm SpO2: 94% Tempera ture: 37.1 (C) / 98.7 (F) Weight: 232 lbs 07/10/2012 Blood Pressure 1: 118/70 Code: 8480-6 BMI: 30.5 Code: 76573-2 Heart Rate 1: 72 bpm Height: 6' Respiratory Rate: 24 bpm SpO2: 96% Tempera ture: 36.7 (C) / 98.0 (F) Weight: 225 lbs 05/09/2012 Blood Pressure 1: 124/68 Code: 8480-6 BMI: 29.8 Code: 38807-9 Heart Rate 1: 72 bpm Height: 6' Respiratory Rate: 20 bpm Temperature: 36 .8 (C) / 98.2 (F) Weight: 220 lbs 10/02/2011 Blood Pressure 1: 140/82 Code: 8480-6 BMI: 30.7 Code: 58204-8 Heart Rate 1: 68 bpm Height: 6' Temperature: 36.7 (C) / 98.0 (F) Weight: 226 lbs 08/07/2011 Blood Pressure 1: 122/68 Code: 8480-6 BMI: 30.5 Code: 39171-7 Heart Rate 1: 72 bpm Height: 6' [...] 1: 140/78 Code: 8480-6 BMI: 31.9 Code: 57010-0 Heart Rate 1: 84 bpm Height: 6' Temperature: 36.6 (C) / 97.8 (F) Weight: 235 lbs 12/22/2009 Blood Pressure 1: 140/74 Code: 8480-6 BMI: 31.9 Code: 90373-0 Heart Rate 1: 94 bpm Height: 6' SpO2: 92% Temperature: 35.7 (C) / 96.2 (F) Weight: 235 lbs 12/13/2009 Blood Pressure 1: 146/80 Code: 8480-6 BMI: 33.0 Code: 19882-2 Heart Rate 1: 86 bpm Height: 6' [...] shot follow up 05/08/2019 follow up 04/07/2019 [facility] dizziness 03/24/2019 dizziness 03/21/2019 sore throat 03/13/2019 Patient finished zit hromax last night and has one dose of prednisone left follow up 03/10/2019 ER fwup---patient cu rrently taking zithromax, prednisone and breathing treatments every two hours spasms/spasticity 02/26/2019 follow up 02/13/2019 follow up 01/14/2019 [facility] follow up 12/25/2018 cough 12/09/2018 here for [...] constantly with her. 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 follow up 05/29/2017 Discuss Low Back [...] nightly. Patient has just been discharged from [facility] with Pneumonia. Currently on Levaquin once daily. [...] fwup follow up 03/13/2016 Patient here for [facility] on medication education for insulin use lab [...] 02/25/2015 3mo fwup follow up 10/27/2014 Hospital [facility] cough 10/21/2014 follow up 10/06/2014 follow up 09/21/2014 [facility] follow up 09/08/2014 [facility] cough 09/02/2014 well man exam (65+ years) 08/10/2014 lab draw 08/05/2014 flu shot follow up 05/05/2014 6wk fwup follow up 03/24/2014 2wk up shortness of breath 03/10/2014 shoulder pain 12/16/2013 Request back brace w hen working/lifting---chiropractor had recommended he get one to wear shortness of breath 10/09/2013 cough 09/18/2013 follow up 08/13/2013 Hospital [facility] cough 08/06/2013 follow up 07/16/2013 lab draw [...] 12/13/2009 Encounters Encounter Performer Location Codes Date ([id number]) OFFICE/OUTPATIENT VISIT EST Diagnosis: Chronic obstructive pulmonary disease with (acute) exacerbation[ICD10: J44.1] Lita BARAKAT [employer] [facility] CPT- 4: 04613 12/25/2019 ([id number]) OFFICE/OUTPATIENT VISIT EST Diagnosis: Noncompliance with diabetes treatment[ICD10: Z91.19] Diagnosis: Insomnia[ICD10: G47.00] Diagnosis: Pain in right knee[ICD10: M25.561] Lita Barakat [facility] CPT-4: 95994 12/22/2019 ([id number]) OFFICE/OUTPATIENT VISIT EST Diagnosis: Chronic respiratory failure with hypercapnia[ICD10: J96.12] Diagnosis: Chronic airway obstruction, not elsewhere classified[ICD10: J44.9] Diagnosis: Basal cell carcinoma, face[ICD10: C44.310] Lita ALYLINE Ashley BARAKAT [employer] [facility] CPT-4: 67037 11/12/2019 ([id number]) OFFICE/OUTPATIENT VISIT EST Diagnosis: Chronic obstructive pulmonary disease, unspecified[ICD10: J44.9] Diagnosis: Right thyroid nodule[ICD10: E04.1] Lita Gasper KEVIN GONZALES Ashley BARAKAT [employer] CPT-4: 44447 09/11/2019 ([id number]) OFFICE/OUTPATIENT VISIT EST Diagnosis: Chronic bronchitis[ICD10: J42] 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] Diagnosis: FLU VACCINE[ICD10: Z23] Lita HERRMANNQUELINE Ashley PABLO [employer] [facility] CPT-4: 39280 08/07/2019 ([id number]) OFFICE/OUTPATIENT VISIT EST Diagnosis: Chronic obstructive pulmonary disease with (acute) exacerbation[ICD10: J44.1] Autumn ALYLINE Ashley BARAKAT [employer] [facility] CPT- 4: 76788 07/14/2019 ([id number]) OFFICE/OUTPATIENT VISIT EST Diagnosis: Primary insomnia[ICD10: F51.01] Diagnosis: Dyspepsia and other specified disorders of function of stomach[ICD10: K31.89] Lita CRAWFORD Ashley BARAKAT [employer] CPT-4: 17421 07/01/2019 ([id number]) OFFICE/OUTPATIENT VISIT EST Diagnosis: Epigastric pain[ICD10: R10.13] Diagnosis: Nausea[ICD10: R11.0] Diagnosis: Weight loss[ICD10: R63.4] Lita AREVALO DO [facility] CPT-4: 90993 06/24/2019 ([id number]) OFFICE/OUTPATIENT VISIT EST Diagnosis: Chronic obstructive pulmonary disease, unspecified[ICD10: J44.9] Diagnosis: Chronic insomnia[ICD10: F51.04] Diagnosis: Anemia[ICD10: D64.9] Diagnosis: Diplopia[ICD10: H53.2] Diagnosis: [place][ICD10: F30.9] Lita BARAKAT DO [facility] CPT-4: 88939 06/17/2019 ([id number]) NURSE/OUTPATIENT VISIT EST Diagnosis: Vitamin B12 deficiency anemia, unspecified[ICD10: D51.9] Lita BARAKAT DO [facility] CPT-4: 57828 06/10/2019 ([id number]) NURSE/OUTPATIENT VISIT EST Diagnosis: Vitamin B12 deficiency anemia, unspecified[ICD10: D51.9] Lita BARAKAT DO [facility] CPT-4: 39602 06/02/2019 ([id number]) NURSE/OUTPATIENT VISIT EST Diagnosis: Vitamin B12 deficiency anemia, unspecified[ICD10: D51.9] Lita BARAKAT DO [facility] CPT-4: 89748 05/27/2019 ([id number]) NURSE/OUTPATIENT VISIT EST Diagnosis: Vitamin B12 deficiency anemia, unspecified[ICD10: D51.9] Lita BARAKAT DO [facility] CPT-4: 56128 05/12/2019 ([id number]) OFFICE/OUTPATIENT VISIT EST Diagnosis: Restless legs syndrome[ICD10: G25.81] Diagnosis: Primary insomnia[ICD10: F51.01] Diagnosis: Anemia, unspecified[ICD10: D64.9] Diagnosis: Type 2 diabetes mellitus with hyperglycemia[ICD10: E11.65] Diagnosis: Vitamin D deficiency, unspecified[ICD10: E55.9] Litacarol BARAKAT DO [facility] CPT-4: 80366 05/08/2019 ([id number]) OFFICE/OUTPATIENT VISIT EST Diagnosis: Pain in right knee[ICD10: M25.561] Diagnosis: Restless legs syndrome[ICD10: G25.81] Diagnosis: Insomnia, unspecified[ICD10: G47.00] Lita BARAKAT DO [facility] CPT-4: 60924 04/07/2019 ([id number]) NO CHARGE Diagnosis: Chronic obstructive pulmonary disease with (acute) exacerbation[ICD10: J44.1] Diagnosis: Dizziness and giddiness[ICD10: R42] Diagnosis: Generalized anxiety disorder[ICD10: F41.1] Autumn BARAKAT DO [facility] CPT-4: 72532 03/24/2019 ([id number]) OFFICE/OUTPATIENT VISIT EST Diagnosis: Chronic obstructive pulmonary disease with (acute) exacerbation[ICD10: J44.1] Diagnosis: Dizziness and giddiness[ICD10: R42] Autumn BARAKAT DO [facility] CPT-4: 44990 03/21/2019 ([id number]) OFFICE/OUTPATIENT VISIT EST Diagnosis: Candidal stomatitis[ICD10: B37.0] Lita BARAKAT [facility] CPT-4: 61874 03/13/2019 ([id number]) OFFICE/OUTPATIENT VISIT EST Diagnosis: Chronic obstructive pulmonary disease with acute lower respiratory infection[ICD10: J44.0] Diagnosis: Restless legs syndrome[ICD10: G25.81] Lita Archerelvabev TADEO MARC Ashley BARAKAT DO [facility] CPT-4: 73582 03/10/2019 ([id number]) OFFICE/OUTPATIENT VISIT EST Diagnosis: Restless legs syndrome[ICD10: G25.81] Lita Jasminelvabev TADEO MARC Ashley ARCHERNDBEV JOHNSON [facility] CPT-4: 72552 02/26/2019 ([id number]) OFFICE/OUTPATIENT VISIT EST Diagnosis: Primary insomnia[ICD10: F51.01] Diagnosis: Chronic obstructive pulmonary disease, unspecified[ICD10: J44.9] Lita Jasminbetty CRAWFORD Ashley BARAKAT DO [facility] CPT-4: 43997 02/13/2019 ([id number]) OFFICE/OUTPATIENT VISIT EST Diagnosis: Chronic obstructive pulmonary disease, unspecified[ICD10: J44.9] Diagnosis: Chronic respiratory failure with hypoxia[ICD10: J96.11] Diagnosis: Chronic respiratory failure with hypercapnia[ICD10: J96.12] Lita Jasminbetty HERRMANNLITA Ashley BARAKAT [facility] CPT-4: 26178 01/14/2019 ([id number]) OFFICE/OUTPATIENT VISIT EST Diagnosis: Chronic respiratory failure with hypoxia[ICD10: J96.11] Diagnosis: Patient's noncompliance with other medical treatment and regimen[ICD10: Z91.19] Diagnosis: Chronic obstructive pulmonary disease with (acute) exacerbation[ICD10: J44.1] Lita CRAWFORD DonovanFerdinand GASPER [facility] CPT- 4: 80839 12/25/2018 ([id number]) OFFICE/OUTPATIENT VISIT EST Diagnosis: Essential (primary) hypertension[ICD10: I10] Diagnosis: Type 2 diabetes mellitus with hyperglycemia[ICD10: E11.65] Diagnosis: Hypothyroidism, unspecified[ICD10: E03.9] Diagnosis: Hyperlipidemia, unspecified[ICD10: E78.5] Diagnosis: Acute recurrent maxillary sinusitis[ICD10: J01.01] Ines HERRMANNQUELINE Ashley BARAKAT [facility] CPT-4: 09991 12/09/2018 ([id number]) OFFICE/OUTPATIENT VISIT EST Diagnosis: Candidal stomatitis[ICD10: B37.0] Lita Segura DonovanFerdinand ARMIN [employer] [facility] CPT-4: 19237 12/05/2018 ([id number]) OFFICE/OUTPATIENT VISIT EST Diagnosis: Acute recurrent sinusitis, unspecified[ICD10: J01.91] Diagnosis: Pain in right knee[ICD10: M25.561] Lita GONZALES Ashley BARAKAT [employer] [facility] CPT-4: 91989 10/23/2018 ([id number]) OFFICE/OUTPATIENT VISIT EST Diagnosis: Restless legs syndrome[ICD10: G25.81] Diagnosis: Basal cell carcinoma of skin of scalp and neck[ICD10: C44.41] Lita CRAWFORD DonovanFerdinand GASPER [facility] CPT-4: 44454 08/21/2018 ([id number]) OFFICE/OUTPATIENT VISIT EST Diagnosis: Chronic obstructive pulmonary disease with acute lower respiratory infection[ICD10: J44.0] Diagnosis: Restless legs syndrome[ICD10: G25.81] Lita BARAKAT DO [facility] CPT-4: 95107 08/07/2018 ([id number]) OFFICE/OUTPATIENT VISIT EST Diagnosis: Chronic obstructive pulmonary disease with acute lower respiratory infection[ICD10: J44.0] Lita BARAKAT DO [facility] CPT-4: 78488 05/23/2018 ([id number]) OFFICE/OUTPATIENT VISIT EST Diagnosis: Candidal stomatitis[ICD10: B37.0] Liat BARAKAT DO [facility] CPT-4: 38959 05/02/2018 ([id number]) OFFICE/OUTPATIENT VISIT EST Diagnosis: Candidal stomatitis[ICD10: B37.0] Diagnosis: Other retention of urine[ICD10: R33.8] Diagnosis: Chronic obstructive pulmonary disease with acute lower respiratory infection[ICD10: J44.0] Autumn BARAKAT DO [facility] CPT-4: 86619 04/29/2018 ([id number]) OFFICE/OUTPATIENT VISIT EST Diagnosis: Chronic obstructive pulmonary disease with acute lower respiratory infection[ICD10: J44.0] Lita BARAKAT DO [facility] CPT-4: 38273 04/22/2018 ([id number]) OFFICE/OUTPATIENT VISIT EST Diagnosis: Unilateral primary osteoarthritis, right knee[ICD10: M17.11] Diagnosis: Squamous cell carcinoma of skin, unspecified[ICD10: C44.92] Lita BARAKAT DO [facility] CPT-4: 18068 01/28/2018 ([id number]) OFFICE/OUTPATIENT VISIT EST Diagnosis: Pain in right knee[ICD10: M25.561] Diagnosis: 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] Lita BARAKAT DO [facility] CPT-4: 29011 01/23/2018 ([id number]) OFFICE/OUTPATIENT VISIT EST Diagnosis: Urinary tract infection, site not specified[ICD10: N39.0] Diagnosis: Chronic obstructive pulmonary disease with acute lower respiratory infection[ICD10: J44.0] Lita BARAKAT DO [facility] CPT-4: 66240 01/02/2018 ([id number]) OFFICE/OUTPATIENT VISIT EST Diagnosis: Chronic obstructive pulmonary disease with (acute) exacerbation[ICD10: J44.1] Autumn BARAKAT DO [facility] CPT- 4: 16339 12/28/2017 ([id number]) OFFICE/OUTPATIENT VISIT EST Diagnosis: Acute bronchitis, unspecified[ICD10: J20.9] Autumn BARAKAT DO [facility] CPT-4: 40565 12/21/2017 ([id number]) OFFICE/OUTPATIENT VISIT EST Diagnosis: Chronic obstructive pulmonary disease with acute lower respiratory infection[ICD10: J44.0] Diagnosis: Pain in right knee[ICD10: M25.561] Autumn BARAKAT DO [facility] CPT-4: 74891 12/17/2017 ([id number]) OFFICE/OUTPATIENT VISIT EST Diagnosis: Laceration without foreign body of right hand, sequela[ICD10: S61.411S] Diagnosis: Restless legs syndrome[ICD10: G25.81] Lita BARAKAT DO [facility] CPT-4: 25461 10/17/2017 OFFICE/OUTPATIENT VISIT EST Diagnosis: Chronic obstructive pulmonary disease with acute lower respiratory infection[ICD10: J44.0] Autumn BARAKAT DO [facility] CPT-4: 05691 08/02/2017 ([id number]) OFFICE/OUTPATIENT VISIT EST Diagnosis: PNEUMOCOCCAL VACCINE[ICD10: Z23] Lita BARAKAT DO [facility] CPT-4: 95012 07/24/2017 OFFICE/OUTPATIENT VISIT EST Diagnosis: Chronic obstructive pulmonary disease with (acute) exacerbation[ICD10: J44.1] Autumn BARAKAT DO [facility] CPT- 4: 98057 07/02/2017 OFFICE/OUTPATIENT VISIT EST Diagnosis: Low back pain[ICD10: M54.5] Ruchi De Los Santos RENDER [facility] CPT-4: 13323 05/29/2017 ([id number]) OFFICE/OUTPATIENT VISIT EST Diagnosis: Essential (primary) hypertension[ICD10: I10] Diagnosis: Hypothyroidism, unspecified[ICD10: E03.9] Diagnosis: Dizziness and giddiness[ICD10: R42] Diagnosis: Other abnormality of red blood cells[ICD10: R71.8] Diagnosis: Contracture of muscle, unspecified site[ICD10: M62.40] Lita Jasminelvabev LITA DonovanFerdinand GASPER [facility] CPT-4: 25026 04/17/2017 OFFICE/OUTPATIENT VISIT EST Diagnosis: Pain in left shoulder[ICD10: M25.512] Ruhci Chanel TRAN Donovan[facility]erdinand [facility]: 26679 01/29/2017 ([id number]) OFFICE/OUTPATIENT VISIT EST Diagnosis: Anemia, unspecified[ICD10: D64.9] Lita Jasminbetty Segura DonovanFerdinand [facility] CPT-[facility]: 63444 12/27/2016 ([id number]) OFFICE/OUTPATIENT VISIT EST Diagnosis: Other fatigue[ICD10: R53.83] Diagnosis: Other iron deficiency anemias[ICD10: D50.8] Lita Barakat LITA DonovanFerdinand [facility] CPT[facility]: 60224 12/21/2016 ([id number]) OFFICE/OUTPATIENT VISIT EST Diagnosis: Anemia, unspecified[ICD10: D64.9] Diagnosis: Other fatigue[ICD10: R53.83] Diagnosis: Restless legs syndrome[ICD10: G25.81] Lita Jasminbetty TRAN DonovanFerdinand [facility] CPT[facility]: 10001 12/14/2016 ([id number]) OFFICE/OUTPATIENT VISIT EST Diagnosis: Anemia, unspecified[ICD10: D64.9] Diagnosis: Other abnormality of red blood cells[ICD10: R71.8] Lita Funezbev LITA DonovanFerdinand [facility] CPT[facility]: 25925 12/12/2016 ([id number]) OFFICE/OUTPATIENT VISIT EST Diagnosis: Pneumonia, unspecified organism[ICD10: J18.9] Diagnosis: Restless legs syndrome[ICD10: G25.81] Magda HERRMANNONIEL MARC Ashley BARAKAT [facility] CPT-4: 76961 11/14/2016 ([id number]) OFFICE/OUTPATIENT VISIT EST Diagnosis: Candidal stomatitis[ICD10: B37.0] Lita Jasminelvabev BARAKAT [facility] CPT-4: 40717 10/31/2016 ([id number]) OFFICE/OUTPATIENT VISIT EST Diagnosis: Acute upper respiratory infection, unspecified[ICD10: J06.9] Diagnosis: Personal history of pneumonia (recurrent)[ICD10: Z87.01] Magda ALYLINE Ashley BARAKAT [facility] CPT-4: 99595 10/03/2016 ([id number]) OFFICE/OUTPATIENT VISIT EST Diagnosis: Restless legs syndrome[ICD10: G25.81] Diagnosis: Insomnia, unspecified[ICD10: G47.00] Magda ALY JESSICA Ashley [facility]: 76181 09/04/2016 ([id number]) OFFICE/OUTPATIENT VISIT EST Diagnosis: Restless legs syndrome[ICD10: G25.81] Diagnosis: Primary insomnia[ICD10: F51.01] Lita ALYLINE Ashley BARAKAT [facility] CPT-4: 07867 08/10/2016 OFFICE/OUTPATIENT VISIT EST Diagnosis: Toxic gastroenteritis and colitis[ICD10: K52.1] Diagnosis: Dizziness and giddiness[ICD10: R42] Diagnosis: Headache[ICD10: R51] Diagnosis: Restless legs syndrome[ICD10: G25.81] Lita Jasminbetty PIEDRA MARC Ashley BARAKAT [facility] CPT-4: 43512 07/06/2016 ([id number]) OFFICE/OUTPATIENT VISIT EST Diagnosis: Chest pain, unspecified[ICD10: R07.9] Diagnosis: Dyspnea, unspecified[ICD10: R06.00] Magda HERRMANNTANA CONDE Ashley BARAKAT [facility] CPT-4: 05062 06/22/2016 ([id number]) OFFICE/OUTPATIENT VISIT EST 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] Diagnosis: PNEUMOCOCCAL VACCINE[ICD10: Z23] Diagnosis: FLU VACCINE[ICD10: Z23] Lita [facility] CPT-4: 23949 06/13/2016 ([id number]) OFFICE/OUTPATIENT VISIT EST Diagnosis: Chest pain, unspecified[ICD10: R07.9] Diagnosis: Other forms of dyspnea[ICD10: R06.09] Diagnosis: Shortness of breath[ICD10: R06.02] Diagnosis: Other fatigue[ICD10: R53.83] Magda BARAKAT [facility] CPT-4: 90407 06/01/2016 ([id number]) OFFICE/OUTPATIENT VISIT EST Diagnosis: Unspecified hearing loss, left ear[ICD10: H91.92] Diagnosis: Other specified disorders of Eustachian tube, left ear[ICD10: H69.82] Magda [facility]: 11509 11/2015 ([id number]) OFFICE/OUTPATIENT VISIT EST Diagnosis: Impacted cerumen, bilateral[ICD10: H61.23] Diagnosis: DM W/O COMPLICATION TYPE I, 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: E10.9] Diagnosis: Generalized anxiety disorder[ICD10: F41.1] Lita [facility]: 54686 04/03/2016 ([id number]) OFFICE/OUTPATIENT VISIT EST Diagnosis: 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] Lita [facility] - [facility]: 64852 03/13/2016 ([id number]) OFFICE/OUTPATIENT VISIT EST Diagnosis: Type 2 diabetes mellitus with hyperglycemia[ICD10: E11.65] Diagnosis: Hyperlipidemia, unspecified[ICD10: E78.5] Diagnosis: Essential (primary) hypertension[ICD10: I10] Diagnosis: Chronic obstructive pulmonary disease, unspecified[ICD10: J44.9] Diagnosis: Testicular hypofunction[ICD10: E29.1] Diagnosis: Male erectile dysfunction, unspecified[ICD10: N52.9] Diagnosis: Anemia, unspecified[ICD10: D64.9] Lita HERRMANNQUELIN Daja [facility] CPT-[facility]: 03369 03/06/2016 ([id number]) OFFICE/OUTPATIENT VISIT EST Diagnosis: Type 2 diabetes mellitus with hyperglycemia[ICD10: E11.65] Diagnosis: Hyperlipidemia, unspecified[ICD10: E78.5] Diagnosis: Chronic obstructive pulmonary disease, unspecified[ICD10: J44.9] Diagnosis: Male erectile dysfunction, unspecified[ICD10: N52.9] Lita BARAKAT [facility] CPT-4: 38427 03/02/2016 ([id number]) OFFICE/OUTPATIENT VISIT EST Diagnosis: Pain in right foot[ICD10: M79.671] Magda BARAKAT [facility] CPT-4: 79791 02/14/2016 OFFICE/OUTPATIENT VISIT EST Diagnosis: Generalized anxiety disorder[ICD10: F41.1] Lita BARAKAT [facility] CPT-4: 71531 01/31/2016 ([id number]) OFFICE/OUTPATIENT VISIT EST Diagnosis: Generalized anxiety disorder[ICD10: F41.1] Lita BARAKAT [facility] CPT-4: 13443 12/30/2015 ([id number]) OFFICE/OUTPATIENT VISIT EST Diagnosis: Localized swelling, mass and lump, neck[ICD10: R22.1] Lita BARAKAT [facility] CPT-4: 03917 12/16/2015 OFFICE/OUTPATIENT VISIT EST Diagnosis: Localized enlarged lymph nodes[ICD10: R59.0] Diagnosis: Otalgia, left ear[ICD10: H92.02] Stephanie BARAKAT [facility] CPT-4: 68175 12/06/2015 OFFICE/OUTPATIENT VISIT EST Diagnosis: Localized enlarged lymph nodes[ICD10: R59.0] Diagnosis: Squamous cell carcinoma of skin, unspecified[ICD10: C44.92] Diagnosis: Actinic keratosis[ICD10: L57.0] Stephanie BARAKAT DO [facility] CPT-4: 86405 11/15/2015 OFFICE/OUTPATIENT VISIT EST Diagnosis: Cellulitis of left lower limb[ICD10: L03.116] Diagnosis: Encounter for examination and observation for other specified reasons[ICD10: Z04.8] Diagnosis: Chronic obstructive pulmonary disease, unspecified[ICD10: J44.9] Stephanie BARAKAT DO [facility] CPT-4: 15755 07/22/2015 OFFICE/OUTPATIENT VISIT EST Diagnosis: Other specified joint disorders, left knee[ICD10: M25.862] Diagnosis: Cellulitis of left lower limb[ICD10: L03.116] Diagnosis: Other fatigue[ICD10: R53.83] Diagnosis: Hyperlipidemia, unspecified[ICD10: E78.5] Stephanie BARAKAT DO [facility] CPT-4: 91484 07/01/2015 OFFICE/OUTPATIENT VISIT EST Diagnosis: Pain in left knee[ICD10: M25.562] Diagnosis: Cellulitis of left lower limb[ICD10: L03.116] Diagnosis: Other specified joint disorders, left knee[ICD10: M25.862] Stephanie BARAKAT DO [facility] CPT-4: 44107 06/28/2015 OFFICE/OUTPATIENT VISIT EST Diagnosis: PREPATELLAR BURSITIS[ICD9: 726.65] Diagnosis: Cellulitis of knee, left[ICD9: 682.6] Stephanie BARAKAT [facility] CPT-4: 94686 06/09/2015 ([id number]) OFFICE/OUTPATIENT VISIT EST Diagnosis: PREPATELLAR BURSITIS[ICD9: 726.65] Diagnosis: Cellulitis of knee, left[ICD9: 682.6] Lita BARAKAT [facility] CPT-4: 37713 06/07/2015 OFFICE/OUTPATIENT VISIT EST Diagnosis: Cellulitis of knee, left[ICD9: 682.6] Stephanie BARAKAT DO [facility] CPT-4: 71217 06/03/2015 ([id number]) OFFICE/OUTPATIENT VISIT EST Diagnosis: DM W/O COMPLICATION TYPE II, UNCONTROLLED[ICD9: 250.02] Diagnosis: COPD[ICD9: 496] Lita BARAKAT DO [facility] CPT- 4: 31096 06/01/2015 ([id number]) OFFICE/OUTPATIENT VISIT EST Diagnosis: COPD[ICD9: 496] Diagnosis: DYSPNEA[ICD9: 786.09] Diagnosis: DM W/O COMPLICATION TYPE II, UNCONTROLLED[ICD9: 250.02] Diagnosis: Actinic keratosis[ICD9: 702.0] Lita BARAKAT [facility] CPT-4: 82862 02/25/2015 ([id number]) OFFICE/OUTPATIENT VISIT EST Diagnosis: ASTHMA NOS[ICD9: 493.90] Diagnosis: COPD[ICD9: 496] Diagnosis: DM W/O COMPLICATION TYPE II, UNCONTROLLED[ICD9: 250.02] Lita BARAKAT [employer] [facility] CPT-4: 98712 10/27/2014 OFFICE/OUTPATIENT VISIT EST Diagnosis: DYSPNEA[ICD9: 786.09] Diagnosis: COPD[ICD9: 496] Lita BARAKAT [facility] CPT- 4: 86346 10/06/2014 ([id number]) OFFICE/OUTPATIENT VISIT EST Diagnosis: PNEUMONIA, ORGANISM[ICD9: 486] Diagnosis: COPD[ICD9: 496] Diagnosis: DYSPNEA[ICD9: 786.09] iLta BARAKAT [employer] [facility] CPT-4: 88826 09/21/2014 OFFICE/OUTPATIENT VISIT EST Diagnosis: PNEUMONIA, ORGANISM[ICD9: 486] Diagnosis: DYSPNEA[ICD9: 786.09] Diagnosis: COUGH[ICD9: 786.2] Stephanie BARAKAT [employer] [facility] CPT-4: 16672 09/08/2014 OFFICE/OUTPATIENT VISIT EST Diagnosis: COPD with exacerbation[ICD9: 491.21] Diagnosis: COUGH[ICD9: 786.2] Diagnosis: DYSPNEA[ICD9: 786.09] Stephanie BARAKAT [employer] [facility] CPT-4: 87662 09/02/2014 ([id number]) OFFICE/OUTPATIENT VISIT EST Diagnosis: DM W/O COMPLICATION TYPE II, UNCONTROLLED[ICD9: 250.02] Lita BARAKAT [employer] [facility] CPT-4: 41871 08/27/2014 ([id number]) OFFICE/OUTPATIENT VISIT EST Diagnosis: DM W/O COMPLICATION TYPE II, UNCONTROLLED[ICD9: 250.02] Diagnosis: HYPERLIPIDEMIA NEC/NOS[ICD9: 272.4] Diagnosis: HYPERTENSION[ICD9: 401.9] Diagnosis: COPD[ICD9: 496] Diagnosis: FLU VACCINE[ICD10: Z23] Lita [facility] CPT-4: 55479 08/05/2014 ([id number]) OFFICE/OUTPATIENT VISIT EST Diagnosis: COPD[ICD9: 496] Diagnosis: Lumbar degenerative disc disease[ICD9: 722.52] Lita [facility]: 69827 05/05/2014 OFFICE/OUTPATIENT VISIT EST Diagnosis: DYSPNEA[ICD9: 786.09] Diagnosis: COPD[ICD9: 496] Lita [facility] CPT- [facility]: 39188 03/24/2014 ([id number]) OFFICE/OUTPATIENT VISIT EST Diagnosis: COPD[ICD9: 496] Diagnosis: DYSPNEA[ICD9: 786.09] Lita [facility]PT[facility]: 05857 03/10/2014 OFFICE/OUTPATIENT VISIT EST Diagnosis: Subacromial bursitis[ICD9: 726.19] Diagnosis: Chronic low back pain[ICD9: 724.2] Diagnosis: Lumbar degenerative disc disease[ICD9: 722.52] Lita [facility]: 38569 12/16/2013 ([id number]) OFFICE/OUTPATIENT VISIT EST Diagnosis: PHARYNGITIS, ACUTE[ICD9: 462] Diagnosis: COPD[ICD9: 496] Lita [facility] CPT- [facility]: 76936 10/09/2013 OFFICE/OUTPATIENT VISIT EST Diagnosis: COPD[ICD9: 496] Diagnosis: Acute exacerbation of chronic obstructive pulmonary disease (COPD)[ICD9: 491.21] Ruchi Buchanan LITA [facility] C[facility]: 62069 09/18/2013 ([id number]) OFFICE/OUTPATIENT VISIT EST Diagnosis: PNEUMONIA, ORGANISM[ICD9: 486] Diagnosis: DM W/O COMPLICATION TYPE II[ICD9: 250.00] Lita Gasper [facility] CPT-4: 68471 08/13/2013 ([id number]) OFFICE/OUTPATIENT VISIT EST Diagnosis: DM W/O COMPLICATION TYPE II, UNCONTROLLED[ICD9: 250.02] Diagnosis: HYPERLIPIDEMIA NEC/NOS[ICD9: 272.4] Diagnosis: HYPERTENSION[ICD9: 401.9] Diagnosis: DYSPNEA[ICD9: 786.09] Diagnosis: Family history of CABG[ICD9: V17.49] Lita Ramirez [facility] CPT-4: 02725 07/16/2013 ([id number]) OFFICE/OUTPATIENT VISIT EST Diagnosis: DM W/O COMPLICATION TYPE II, UNCONTROLLED[ICD9: 250.02] Diagnosis: HYPERLIPIDEMIA NEC/NOS[ICD9: 272.4] Diagnosis: HYPERTENSION[ICD9: 401.9] Lita Ramirez [facility] CPT-4: 61148 06/25/2013 OFFICE/OUTPATIENT VISIT EST Diagnosis: COUGH[ICD9: 786.2] Diagnosis: COPD[ICD9: 496] Kimberly [facility]: 50838 04/09/2013 ([id number]) OFFICE/OUTPATIENT VISIT EST Diagnosis: Muscle spasm[ICD9: 728.85] Diagnosis: ARTHRALGIA-MULTIPLE SITES[ICD9: 719.49] Lita Ramirez [facility] CPT-4: 56398 02/11/2013 OFFICE/OUTPATIENT VISIT EST Diagnosis: COPD with exacerbation[ICD9: 491.21] Diagnosis: BRONCHITIS, ACUTE[ICD9: 466.0] Ruchi Streeter [facility]PT-[facility]: 29930 01/31/2013 OFFICE/OUTPATIENT VISIT EST Diagnosis: COUGH[ICD9: 786.2] Diagnosis: PHARYNGITIS, ACUTE[ICD9: 462] Diagnosis: SINUSITIS, ACUTE[ICD9: 461.9] Lita Ramirez [facility]PT-[facility]: 56697 01/20/2013 OFFICE/OUTPATIENT VISIT EST Diagnosis: DIZZINESS/VERTIGO[ICD9: 780.4] Lita Streeter [facility] CPT-4: 95283 12/19/2012 OFFICE/OUTPATIENT VISIT EST Diagnosis: Skin lesion of left arm[ICD9: 709.9] Diagnosis: Otitis externa[ICD9: 380.10] Diagnosis: PHARYNGITIS, ACUTE[ICD9: 462] Lita [facility]: 86561 10/21/2012 ([id number]) OFFICE/OUTPATIENT VISIT EST Diagnosis: DM W/O COMPLICATION TYPE II, UNCONTROLLED[ICD9: 250.02] Diagnosis: HYPERLIPIDEMIA NEC/NOS[ICD9: 272.4] Diagnosis: HYPERTENSION[ICD9: 401.9] [facility]: 80044 09/19/2012 ([id number]) OFFICE/OUTPATIENT VISIT EST Diagnosis: DM W/O COMPLICATION TYPE II, UNCONTROLLED[ICD9: 250.02] Diagnosis: HYPERLIPIDEMIA NEC/NOS[ICD9: 272.4] Diagnosis: COPD[ICD9: 496] [facility]: 95808 09/18/2012 ([id number]) OFFICE/OUTPATIENT VISIT EST Diagnosis: BRONCHITIS, ACUTE[ICD9: 466.0] Diagnosis: SINUSITIS, ACUTE[ICD9: 461.9] [facility]ita [facility]: 97092 08/28/2012 ([id number]) OFFICE/OUTPATIENT VISIT EST Diagnosis: COPD[ICD9: 496] Diagnosis: DYSPNEA[ICD9: 786.09] Diagnosis: VAC STREP PNEUMONIAE-FLU (Medicare)[ICD9: V06.6] Lita [facility]: 52290 07/10/2012 ([id number]) OFFICE/OUTPATIENT VISIT EST Diagnosis: DM W/O COMPLICATION TYPE II, UNCONTROLLED[ICD9: 250.02] Diagnosis: HYPERTENSION[ICD9: 401.9] Diagnosis: HYPERLIPIDEMIA NEC/NOS[ICD9: 272.4] Diagnosis: DIZZINESS/VERTIGO[ICD9: 780.4] [facility]: 97068 05/09/2012 ([id number]) OFFICE/OUTPATIENT VISIT EST Diagnosis: DM W/O COMPLICATION TYPE II, UNCONTROLLED[ICD9: 250.02] Diagnosis: HYPERLIPIDEMIA NEC/NOS[ICD9: 272.4] Diagnosis: HYPERTENSION[ICD9: 401.9] Diagnosis: MALAISE AND FATIGUE[ICD9: 780.79] Lita Segura [facility] CPT-4: 67138 05/06/2012 OFFICE/OUTPATIENT VISIT EST Diagnosis: COUGH[ICD9: 786.2] Diagnosis: SINUSITIS, ACUTE[ICD9: 461.9] Diagnosis: PHARYNGITIS, ACUTE[ICD9: 462] Lita CRAWFORD S[facility] DO [facility] CPT-4: 93308 10/02/2011 OFFICE/OUTPATIENT VISIT EST Diagnosis: DM W/O COMPLICATION TYPE II, UNCONTROLLED[ICD9: 250.02] Diagnosis: HYPERLIPIDEMIA NEC/NOS[ICD9: 272.4] Diagnosis: HYPERTENSION[ICD9: 401.9] Diagnosis: COPD[ICD9: 496] Lita Jasminelvabev [facility]RAWFORD [facility] DO [facility] CPT- 4: 46632 08/07/2011 OFFICE/OUTPATIENT VISIT EST Lita Gasper [facility] DO [facility] CPT- 4: 28551 04/03/2011 ([id number]) OFFICE/OUTPATIENT VISIT EST Lita Gasper TOBAR UELINE [facility] CPT-4: 70707 01/18/2011 ([id number]) OFFICE/OUTPATIENT VISIT EST Lita Gasper [facility] CPT-4: 71439 12/19/2010 ([id number]) OFFICE/OUTPATIENT VISIT, EST Lita Jasminelvabve ALIZE RAJESHJESSICA [facility] CPT-4: 47431 04/05/2010 ([id number]) OFFICE/OUTPATIENT VISIT, EST Lita HOLMAN [facility] CPT-4: 35164 01/13/2010 ([id number]) OFFICE/OUTPATIENT VISIT, EST Lita HERRMANN RAJESHJESSICA [facility] CPT-4: 50914 12/23/2009 ([id number]) OFFICE/OUTPATIENT VISIT, EST Lita HOLMAN [facility] DO [employer] CPT-4: 01099 12/22/2009 ([id number]) OFFICE/OUTPATIENT VISIT, SUZANNE HerrmannLita Oreelvabev ManFerdinand BARAKAT DO [employer] CPT-4: 80905 12/13/2009 Plan of Care Planned Activity Notes Codes Status Date Visit Diagnosis Plan: Chronic obstructiv e pulmonary disease with (acute) exacerbation Discussion: Solumedrol 125mg IM Continue SVNs every 4hrs Prednisone for 1 week COVID-19 precautions ICD-9 : 491.21 ICD-10 : J44.1 12/25/2019 Patient Education: prednisone- [employer] Coupon [id number] https://www.[employer]/resources/getResource/61/[email or web address]-975y-51 Completed 12/25/2019 Visit Diagnosis Plan: Noncompliance with [...] M25.561 12/22/2019 Appointment: Lita Bar[facility]at [facility] [phone] [id number] [facility] 12/22/2019 Patient Education: baclofen- [employer] Coupon [id number] https://www.[employer]/resources/getResource/61/sq5ut785-yzq5-4sk1-58 Completed 12/22/2019 Visit Diagnosis Plan: Chronic respiratory [...] : C44.310 11/12/2019 Appointment: Lita Barakat WPtel: [address] [place] [address] ACUTE ILLNESS 11/12/2019 Care Plan: Referral Order SNOMED-CT : 30 [id number] Pending 11/12/2019 Care Plan: Referral Order SNOMED-CT : 30 8608364 Pending 11/12/2019 Visit Diagnosis Plan: Right thyroid nodule Discussion: Check thyroid US ICD-9 : 241.0 ICD-10 : E04.1 09/11/2019 Visit Diagnosis Plan: Chronic obstructive pulmonary di sease, unspecified Discussion: Start Pulmonary Rehab Reviewed results of CT of chest ordered by pulmonology Follow Up: 3 months ICD-9 : 496 ICD-10 : J44.9 09/11/2019 Appointment: Lita Barakat WPtel: [address] [place], [place] [phone] MEDICATION REVIEW 09/11/2019 Care Plan: US EXAM OF HEAD AND NECK LOIN C : 56687-6 Pending 09/11/2019 Visit Diagnosis Plan: Chronic bronchitis Discussion: A ugmentin for 10 days ICD-9 : 491.9 ICD-10 : J42 08/07/2019 Appointment: Lita Barakat WPtel: [address] [place] [address] ACUTE ILLNESS 08/07/2019 Visit Diagnosis Plan: Chronic [...] him that overuse of symbicort can cause mcc damage and the albuterol is to be used every 4 hours as needed. call office later this week with worsening or no improvement ICD-9 : 491.21 ICD-10 : J44.1 07/14/2019 Appointment: Autumn Oneil [address] [employer], [place] [id number] ACUTE ILLNESS 07/14/2019 Visit Diagnosis Plan: Dyspepsia [...] F51.01 07/01/2019 Appointment: Lita Barakat WPtel: [phone] [facility] FOLLOW UP 07/01/2019 Care Plan: CT ABDOMEN W/O DYE LOINC : 36 103-0 Pending 07/01/2019 Care Plan: Referral Order SNOMED-CT : 30 [id number] Pending 07/01/2019 Visit Diagnosis Plan: Weight loss [...] R10.13 06/24/2019 Appointment: Lita Barakat WPtel: [phone] [facility] ACUTE ILLNESS 06/24/2019 Patient Education: Seroquel- [employer] Coupon [id number] https://www.MessageOne/samplemd/resources/getResource/61/1xg9o3w5-k512-82d3-33 Completed 06/24/2019 Patient Education: ondansetron HCl- [employer] Coupon [id number] https://www.[employer]/resources/getResource/61/8290980i-2682-76b9-v2 Completed 06/24/2019 Care Plan: US EXAM ABDOM COMPLETE LOINC : 09060-5 Pending 06/24/2019 Visit Diagnosis Plan: Chronic insomnia [...] ICD-10 : H53.2 06/17/2019 Appointment: Lita Barakattel: [address] [place], [place] [phone] US FOLLOW UP 06/17/2019 Appointment: Lita Barakat WPtel: [address] [place], [place] [phone] US INJECTION 06/10/2019 Appointment: Lita Barakat WPtel: [address] [place], [place] [phone] US INJECTION 06/02/2019 Appointment: Lita Barakat WPtel: [address] [place], [place] [id number] US INJECTION 05/27/2019 Appointment: Lita Barakat WPtel: [address] [place], [place] [id number] US INJECTION 05/12/2019 Visit Diagnosis Plan: Anemia, [...] : E55.9 05/08/2019 Appointment: Lita Barakat WPtel: [address] [place], [place] [phone] FOLLOW UP 05/08/2019 Visit Diagnosis Plan: Pain in right knee Discussion: S top tramadol and tylenol q HS Trial of Hydrocodone 10/325mg po q HS Recheck 1month ICD-9 : 719.46 ICD-10 : M25.561 04/07/2019 Appointment: Lita Barakat WPtel: [address] [place], [place] [phone] Hospital Follow Up 04/07/2019 Visit Diagnosis Plan: [...] ICD-10 : F41.1 03/24/2019 Appointment: Autumn Oneil [address] [place], [place] [id number] ACUTE ILLNESS 03/24/2019 Patient Education: hydroxyzine HCl- [employer] Coupon [id number] Completed 03/24/2019 Patient Education: pantoprazole- [employer] Coupon [id number] Completed 03/24/2019 Visit Diagnosis Plan: Chronic obstructiv e pulmonary disease with (acute) exacerbation Discussion: 90 mg solumedrol given in of fice. patient's portable oxygen tank was empty. [id number] patient on importance of monitoring oxygen tank [...] ICD-10 : R42 03/21/2019 Appointment: Autumn Oneil [address] [place] [id number] ACUTE ILLNESS 03/21/2019 Patient Education: ipratropium-albuterol- [employer] C marielapon [id number] [email or web address] Completed 03/21/2019 Visit Diagnosis Plan: Chronic obstructiv e pulmonary disease with (acute) exacerbation Discussion: Solumedrol now Use SVNs with duoneb at least q4hrs Patient is supposed to be on continuous oxygen but not wearing ICD-9 : 491.21 ICD-10 : J44.1 03/13/2019 Visit Diagnosis Plan: Candidal stomatitis Discussion: Diflucan and Nystatin susp ICD-9 : 112.0 ICD-10 : B37.0 03/13/2019 Appointment: Lita Barakat WPtel: [address] [place] [address] ACUTE ILLNESS 03/13/2019 Patient Education: losartan- [employer] Coupon [id number] Completed 03/13/2019 Patient Education: nystatin- [employer] Coupon [id number] Completed 03/13/2019 Patient Education: fluconazole- [employer] Coupon [id number] Completed 03/13/2019 Visit Diagnosis Plan: Chronic obstructiv [...] : G25.81 03/10/2019 Appointment: Lita Barakat WPtel: [address] [place] [address] ACUTE ILLNESS 03/10/2019 Visit Diagnosis Plan: Restless legs syndrome Discussio n: Stop requip Increase sinemet to TID Add children's chewable MV with iron BID Add magnesium oxide 400mg daily Add Lyrica 75mg po q HS Stop trazadone Recheck 3 weeks Follow Up: 3 weeks ICD-9 : 333.94 ICD-10 : G25.81 02/26/2019 Appointment: Lita Barakat WPtel: [address] [place] [address] ACUTE ILLNESS 02/26/2019 Visit Diagnosis Plan: Primary insomnia Discussion: Tri al of doxepin 10-20mg po q HS prn sleep ICD-9 : 780.52 ICD-10 : F51.01 02/13/2019 Visit Diagnosis Plan: Chronic obstructive pulmonary di sease, unspecified Discussion: Stable Discussed trip to [place]--will get oxygen setup through [facility] ICD-9 : 496 ICD-10 : J44.9 02/13/2019 Appointment: Lita Barakat WPtel: [address] [place], [place] [phone] FOLLOW UP 02/13/2019 Patient Education: doxepin- [employer] Coupon [id number] https://www.MessageOne/samplemd/resources/getResource/61/[email or web address] Completed 02/13/2019 Appointment: Lita Barakat WPtel: [address] [place], [place] [phone] US CANCELED 01/20/2019 Visit Diagnosis Plan: Chronic obstructive pulmonary di sease, unspecified Discussion: Stable on oxygen Given Symbicort samples Follow Up: 1 months ICD-9 : 496 ICD-10 : J44.9 01/14/2019 Appointment: Lita Barakat WPtel: [address] [place], [place] [address] [facility] Follow Up 01/14/2019 Visit Diagnosis Plan: Chronic [...] : J96.11 12/25/2018 Appointment: Lita Barakat WPtel: [address] [place], [place] [address] Hospital Follow Up 12/25/2018 Appointment: Lita Barakat WPtel: [address] [place], [place] [phone] US CANCELED 12/23/2018 Appointment: Ines Banerjee [address] [place], [place] [phone] CANCELED 12/20/2018 Visit Diagnosis Plan: Acute recurrent [...] ICD-10 : I10 12/09/2018 Appointment: Ines Banerjee [address] [place], [place] [phone] LAB 12/09/2018 Patient Education: cefdinir- [employer] Coupon [id number] https://www.MessageOne/samplemd/resources/getResource/61/[email or web address]-2689-90 Completed 12/09/2018 Visit Diagnosis Plan: Candidal stomatitis Discussion: Diflucan for 5 days Hold atorvastatin while taking ICD-9 : 112.0 ICD-10 : B37.0 12/05/2018 Appointment: Lita Barakat WPtel: [address] [place], [place] [phone] ACUTE ILLNESS 12/05/2018 Patient Education: fluconazole- [employer] Coupon [phone] https://www.MessageOne/samplemd/resources/getResource/61/3h850k38-1me5-40b4-89 Completed 12/05/2018 Appointment: Lita Barakat WPtel: [address] [place] [address] NO SHOW 11/11/2018 Visit Plan: Saline nasal [...] J01.91 10/23/2018 Appointment: L[facility] Barakat [facility]Ptel[facility] [address] [facility] [facility] 10/23/2018 Patient Education: prednisone- [employer]RX Coupon [phone] https://www.MessageOne/Enchanted Diamonds/resources/getResource/61/sh4ll591-miqz-0447-32 Completed 10/23/2018 Care Plan: A1C HPLC LOINC : 76236-4 Pending 09/10/2018 Care Plan: COMPREHEN METABOLIC PANEL [place] : 28879-1 Pending 09/10/2018 Care Plan: CBC Pending 09/10/2018 Visit Diagnosis Plan: Basal cell carcinoma of skin of scalp and neck Discussion: Referral to Dr. Swanosn for removal--will need to hold aspirin for 5-7 days ICD-9 : 173.41 ICD-10 : C44.41 08/21/2018 Visit Diagnosis Plan: Restless legs syndrome Discussio n: Increase requip to 8mg q HS Call in 1 week on if helping or not ICD-9 : 333.94 ICD-10 : G25.81 08/21/2018 Appointment: Lita Barakat WPtel[facility] [address] [facility] [facility] 08/21/2018 Care Plan: Referral Order SNOMED-CT : 30 7316555 Pending 08/21/2018 Visit Diagnosis Plan: Chronic obstructiv [...] : G25.81 08/07/2018 Appointment: Lita Barakat WPtel: [address] [place], [place] [phone] [place] [address] FOLLOW UP 08/07/2018 Appointment: Lita Barakat WPtel: [address] [place], [place] [phone] 07/18/18 1210---see note in chart (km) CANCELED 07/18/2018 Visit Diagnosis Plan: Chronic obstructiv e pulmonary disease with acute lower respiratory infection Discussion: Solumedrol 125mg IM Change t o trelagy 1 inhalation daily Use SVNs with albuterol q4hrs To ER this weekend if worsens Monitor weight/swelling ICD-9 : 496 ICD-10 : J44.0 05/23/2018 Appointment: Lita Barakat WPtel: [address] [place] [address] ACUTE ILLNESS 05/23/2018 Patient Education: Patient Medication Summary Completed 05/23/2018 Visit Diagnosis Plan: Candidal stomatitis Discussion: Diflucan for 7 more days--hold atrovastatin while taking ICD-9 : 112.0 ICD-10 : B37.0 05/02/2018 Appointment: Lita Barakat WPtel: [address] [place], [place] [phone] FOLLOW UP 05/02/2018 Patient Education: Patient Medication [...] ICD-10 : J44.0 04/29/2018 Appointment: Autumn Oneil [address] [place] [address] ACUTE ILLNESS 04/29/2018 Patient Education: Patient Medication [...] : J44.0 04/22/2018 Appointment: Lita Barakattel: [address] [facility] Hospital Follow Up 04/22/2018 Patient Education: Patient Medication Summary Completed 04/22/2018 Appointment: Lita Barakat WPtel: [address] [place], [place] [phone] 04/09/18 1640---see message in chart from today [...] : M17.11 01/28/2018 Appointment: Lita Barakat WPtel: [address] [place] [address] ACUTE ILLNESS 01/28/2018 Patient Education: Patient Medication Summary Completed 01/28/2018 Care Plan: Referral Order SNOMED-CT : 30 5515460 Pending 01/28/2018 Care Plan: Referral Order SNOMED-CT : 30 7462665 Pending 01/28/2018 Visit Diagnosis Plan: Functional dyspepsia Discussion: Protonix Call in 1 week on how doing ICD-9 : 536.8 ICD-10 : K30 01/23/2018 Visit Diagnosis Plan: Pain in right knee Discussion: T opical voltaren gel QID ICD-9 : 719.46 ICD-10 : M25.561 01/23/2018 Appointment: Lita Barakat WPtel: [address] [place], [place] [phone] ACUTE ILLNESS 01/23/2018 Patient Education: Patient Medication [...] Appointment: Lita Barakat WPtel: [phone] [id number] ACUTE ILLNESS 01/02/2018 Patient Education: Patient Medication [...] ICD-10 : J44.1 12/28/2017 Appointment: Autumn Oneil [address] [place] [address] Consult 12/28/2017 Patient Education: Patient Medication Summary [...] : J20.9 12/21/2017 Appointment: Autumn Oneil [address] [facility] ACUTE ILLNESS 12/21/2017 Patient Education: Patient Medication Summary Completed 12/21/2017 Care Plan: X-RAY EXAM OF KNEE 1 OR 2 right [place] NC : 41661-4 Pending 12/18/2017 Visit Diagnosis Plan: Pain in [...] ICD-10 : J44.0 12/17/2017 Appointment: Autumn Oneil [address] [place] [address] ACUTE ILLNESS 12/17/2017 Patient Education: Patient Medication Summary Completed 12/17/2017 Visit Diagnosis Plan: Unilateral primary osteoarthriti s, right knee Discussion: Right knee injection as above Warned of elevated BS after injection ICD-9 : 715.96 ICD-10 : M17.11 12/11/2017 Appointment: Lita Barakat WPtel: [address] [place] [address] OFFICE SURGERY 12/11/2017 Patient Education: Patient Medication Summary Completed 12/11/2017 Visit Diagnosis Plan: Actinic keratosis Discussion: Cr yotherapy as above If persists then will need excision by Dr. Swanson ICD-9 : 702.0 ICD-10 : L57.0 11/07/2017 Appointment: Lita Barakat WPtel: [address] [place] [address] ACUTE ILLNESS 11/07/2017 Patient Education: Patient Medication [...] : S61.411S 10/17/2017 Appointment: Lita Barakat WPtel: [address] [place], [place] [phone] ER Follow UP 10/17/2017 Patient Education: Patient Medication Summary Completed 10/17/2017 Appointment: Lita Barakat WPtel: [facility] [place] Consult 08/15/2017 Visit Diagnosis Plan: Chronic [...] ICD-10 : J44.0 08/02/2017 Appointment: Autumn Oneil [address] [place] [address] ACUTE ILLNESS 08/02/2017 Patient Education: Patient Medication Summary Completed 08/02/2017 Patient Education: Patient Medication Summary Completed 07/31/2017 Care Plan: CHEST X-RAY 2VW FRONTAL&LATL LOINC : 11458-2 Pending 07/31/2017 Appointment: Lita Barakat WPtel: [address] [place], [place] [phone] US INJECTION 07/24/2017 Patient Education: Patient Medication [...] ICD-10 : J44.1 07/02/2017 Appointment: Autumn Oneil [address] [place] [address] ACUTE ILLNESS 07/02/2017 Patient Education: Patient Medication Summary Completed 07/02/2017 Care Plan: CHEST X-RAY 2VW FRONTAL&LATL LOINC : 48938-4 Pending 07/02/2017 Care Plan: MRI LUMBAR SPINE W/O DYE LOIN C : 10781-9 Pending 05/30/2017 Visit Plan: MRI at [facility] Surveyor codone 5.325 1 po q 4-6 hours prn pain #40 NR and Cyclobenzaprine (ERx) Continue warm packs for pain RTC if no improvement 05/29/2017 Appointment: Ruchi Buchanan WPtel: [address] [place] [address] ACUTE ILLNESS 05/29/2017 Patient Education: Patient Medication Summary Completed 05/29/2017 Appointment: Lita Barakat WPtel: [address] [place] [address] US CANCELED 05/24/2017 Patient Education: Patient Medication Summary Completed 05/22/2017 Care Plan: X-RAY EXAM L-S SPINE 2/3 VWS LOINC : 48332-8 Pending 05/22/2017 Appointment: Lita Barakat WPtel: [address] [place] [address] LAB 04/17/2017 Patient Education: Patient Medication Summary Completed 04/17/2017 Referral: Demetrius Rodriguez WPtel: [address] Referral Initiated 04/05/2017 Appointment: Lita Barakat WPtel: [address] [place] [address] 03/30/17 0930---spoke with patient about ointments (km Consult 03/30/2017 Appointment: Lita Barakat WPtel: [address] [place], [place] [address] 03/29/17 1320---spoke with patient, requip refilled wasn't received at pharmacy so verbally called (km) Consult 03/29/2017 Patient Education: Patient Medication Summary Completed 03/01/2017 Care Plan: CHEST X-RAY 2VW FRONTAL&LATL LOINC : 41356-7 Pending 03/01/2017 Visit Diagnosis Plan: Bursitis of left shoulder Discus yesi: Injection as above ICD-9 : 726.10 ICD-10 : M75.52 02/01/2017 Appointment: Lita Barakat WPtel: [address] [place], [place] [phone] 01/31 confirmed ~sl WORK IN 02/01/2017 Patient Education: Patient Medication Summary Completed 02/01/2017 Care Plan: X-RAY EXAM OF SHOULDER LOINC : 06173-3 Pending 01/30/2017 Visit Plan: May take OTC Tylenol/Ibuprof en as directed XRay at [facility] of left shoulder Tramadol 50mg 1 po q 6 hours prn pain called to [facility]. Sedation warning given (no driving, etc) RTC if no improvement 01/29/2017 Appointment: Ruchi Buchanan WPtel: [address] [place], [place] [phone] ACUTE ILLNESS 01/29/2017 Appointment: Ruchi Buchanan WPtel: [address] [place], [place] [phone] ACUTE ILLNESS 01/29/2017 Patient Education: Patient Medication Summary Completed 01/29/2017 Appointment: Lita Barakat WPtel: [address] [place], [place] [phone] [place] Consult 01/10/2017 Appointment: Lita Barakat WPtel: [address] [place], [place] [phone] 12/27/2016 Patient Education: Patient Medication Summary Completed [...] : R53.83 12/21/2016 Appointment: Lita Barakat WPtel: [address] [place] [address] ACUTE ILLNESS 12/21/2016 Patient Education: Patient Medication Summary Completed 12/21/2016 Appointment: Lita Barakat WPtel: [address] [place], [place] [phone] US CANCELED 12/18/2016 Visit Diagnosis Plan: Restless [...] ICD-10 : D64.9 12/14/2016 Appointment: Lita Barakattel: [address] [place], [place] [phone] 12/13 confirmed ~sl WORK IN 12/14/2016 Appointment: Lita Barakat WPtel: [address] [place] [address] [place] CANCELED 12/14/2016 Patient Education: Patient Medication Summary Completed 12/14/2016 Appointment: Lita Barakattel: [address] [place], [place] [phone] [place] LAB 12/12/2016 Patient Education: Patient Medication Summary Completed 12/12/2016 Appointment: Lita Barakat WPtel: [address] [place], [place] [phone] in ER this weekend--called for reports Consult 12/11/2016 Appointment: Lita Barakat WPtel: [address] [place], [place] [phone] CANCELED 12/04/2016 Visit Diagnosis Plan: Pneumonia, unspecified [...] ICD-10 : G25.81 11/14/2016 Appointment: Magda Toth [address] [place] [address] MEDICATION REVIEW 11/14/2016 Patient Education: Patient Medication Summary Completed 11/14/2016 Appointment: Lita Barakat WPtel: [address] [place], [place] [phone] RESCHEDULED 11/02/2016 Visit Diagnosis Plan: Candidal stomatitis Discussion: Diflucan and Nystatin Hold atorvastatin while taking diflucan ICD-9 : 112.0 ICD-10 : B37.0 10/31/2016 Appointment: Lita Barakat WPtel: [address] [place], [place] [phone] ACUTE ILLNESS 10/31/2016 Patient Education: Patient Medication Summary Completed 10/31/2016 Appointment: Lita Barakat WPtel: [address] [place], [place] [phone] [place] Consult 10/23/2016 Appointment: Lita Barakat WPtel: [address] [place] [address] US CANCELED 10/18/2016 Visit Plan: Rx as above Wear O2 at all t imes as instructed by Dr Chacon Continue breathing treatments Supportive care otherwise reviewed Follow up ingrid if not improving 10/03/2016 Appointment: Lita Barakat WPtel: [address] [place], [place] [phone] [place] CANCELED 10/03/2016 Appointment: Magda Toth [address] [place] [address] ACUTE ILLNESS 10/03/2016 Patient Education: Patient Medication Summary Completed 10/03/2016 Visit Plan: Titrate requip to 1.5mg x 1 week Call if not helpful and will increase to 2mg qHS NO MORE nyquil at bedtime - discussed potential effects of decongestants on heart, oversedating himself, etc Will increase requip, then amitriptyline if needed to desired effect 09/04/2016 Appointment: Magda Toth [address] [place] [address] ACUTE ILLNESS 09/04/2016 Patient Education: Patient Medication Summary Completed 09/04/2016 Visit Plan: Stop requip and try elavil C ryotherapy as above See ENT for removal of right ear lesion 08/22/2016 Appointment: Lita Barakat WPtel: [address] [place] [address] ACUTE ILLNESS 08/22/2016 Patient Education: Patient Medication Summary Completed 08/22/2016 Visit Plan: Trial of requip 1mg q HS Res tart zoloft Recheck 1month 08/10/2016 Appointment: Lita Barakat WPtel: [address] [place] [address] ACUTE ILLNESS 08/10/2016 Patient Education: Patient Medication Summary Completed 08/10/2016 Visit Plan: Stop HCTZ Flagyl for diarrhe a Hydrate Discussed meds for restless legs Zofran prn Nausea 07/06/2016 Appointment: Lita Barakat WPtel: [address] [place], [place] [phone] 07/05 confirmed~ Hospital Follow Up 07/06/2016 Patient Education: Patient Medication Summary Completed 07/06/2016 Visit Plan: Reviewed with Dr Gasper Palacios sidering his recent history, instructed him to go straight to the ER called to notify her so she can meet him there 06/22/2016 Appointment: Magda Toth [address] [place] [address] ACUTE ILLNESS 06/22/2016 Patient Education: Patient Medication Summary Completed 06/22/2016 Visit Plan: Continue current meds Prevna r 13 and High Dose Flu given 06/13/2016 Appointment: Lita Barakat WPtel: [address] [place], [place] [id number] 06/13 confirmed~ WORK IN 06/13/2016 Patient Education: Patient Medication Summary Completed 06/13/2016 Appointment: Lita Barakat WPtel: [facility] [facility] just went over current medications CANCELED 06/08/2016 Visit Plan: Reviewed POC with Dr Barakat Stat cbc, cmp, d dimer, troponin, bnp, ekg, cxr If any worsening of symptoms while awaiting results, patient instructed to go to ER or call 911 06/01/2016 Appointment: Magda Toth [address] [place], [place] [id number] ACUTE ILLNESS 06/01/2016 Patient Education: Patient Medication Summary Completed 06/01/2016 Referral: José Miguel Swanson WPtel: [address] 04/[address] swanson's office, patient is [...] eval and treatment 04/26/2016 Appointment: Magda Toth [address] [place], [place] [phone] ACUTE ILLNESS 04/26/2016 Patient Education: Patient Medication Summary Completed 04/26/2016 Care Plan: Referral Order SNOMED-CT : 30 0019948 Pending 04/26/2016 Visit Plan: Left ear flushed after conse nt with warm water with peroxide with ear syringe Patient tolerated well Ear exam is wnl following flushing Follow up PRN 04/05/2016 Appointment: Magda Toth [address] [place], [place] [phone] ACUTE ILLNESS 04/05/2016 Patient Education: Patient Medication Summary Completed 04/05/2016 Visit Plan: Increase Levemir to 25u sc d aily Increase sertraline to 2 full tablets daily--200mg Debrox or cerumenex to bilateral ears q HS for 3 nights then flush or fwup for fushing Check lab in 2mos then fwup 04/03/2016 Appointment: Lita Barakat WPtel: [address] [place], [place] [phone] 03/31 7/8 lm ~sl FOLLOW UP 04/03/2016 Patient Education: Patient Medication Summary Completed 04/03/2016 Visit Plan: Patient informed of correct dosage of levemir and how to administer. Patient verbalizes understanding and will call if any questions/concerns. 10 Units of Levemir given in office SC to right lower abdom en. Patient tolerated well. Site without redness/irritation. 03/13/2016 Appointment: Lita Barakat WPtel: [address] [place], [place] [phone] SPECIAL 03/13/2016 Patient Education: Patient Medication Summary Completed 03/13/2016 Appointment: Lita Barakat WPtel: [address] [place], [place] [phone] LAB 03/06/2016 Patient Education: Patient Medication Summary Completed 03/06/2016 Visit Plan: Patient saw Dr. Chacon this week and was given prednisone taper for COPD Continue current meds Accuchecks daily Patient will return on Sunday morning for fasting lab incuding CBC, CMP, TSH, free T4, HbA1C, Lipids, Testosterone, PSA 03/02/2016 Appointment: Lita Barakat WPtel: [address] [place] [address] 03/01 confirmed ~sl FOLLOW UP 03/02/2016 Patient [...] how doing 02/17/2016 Appointment: Lita Barakat WPtel: [address] [place] [address] WORK IN 02/17/2016 Patient Education: Patient Medication Summary Completed 02/17/2016 Visit Plan: Xrays to further evaluate Alvarez spect heel spur(s) Will call with results Has had injections in the past that were helpful Dr Barakat can do them or can refer to podiatry if warranted 02/14/2016 Appointment: Magda Toth [address] [place] [address] ACUTE ILLNESS 02/14/2016 Patient Education: Patient Medication Summary Completed 02/14/2016 Visit Plan: Increase Zoloft to 150mg cooper ly 01/31/2016 Appointment: Lita Barakat WPtel: [address] [place] [address] 01/26 confirmed `sl FOLLOW UP 01/31/2016 Patient Education: Patient Medication Summary Completed 01/31/2016 Visit Plan: Decrease citalopram to 20mg q AM for 1 week then stop Start zoloft 50mg q HS for 1 week then increase to 100mg q HS 12/30/2015 Appointment: Lita Barakat WPtel: [address] [place], [place] [phone] 12/28 confirmed~sl ACUTE ILLNESS 12/30/2015 Patient Education: Patient Medication Summary Completed 12/30/2015 Visit Plan: Check Neck US 12/16/2015 Appointment: Lita Barakat WPtel: [address] [place] [id number] [place] 12/14 lm ~sl 12/15 confirmed-sp FOLLOW UP 12/16/2015 Patient Education: Patient Medication Summary Completed 12/16/2015 Care Plan: US EXAM OF HEAD AND NECK LOIN C : 61292-5 Ordered 12/16/2015 Appointment: Stephanie Rios WPtel: [address] [place], [place] [phone] 12/09 confirmed-sp 12/12 lm ~sl Patient r mannie call and stated he just plain forgot ~sl FOLLOW UP 12/13/2015 Visit Plan: Had changing lesions of fore head and left mastoid area removed earlier today. Follow-up in one week Will proceed with soft tissue ultrasound of neck/ left cervical lymph node if no improvement antibiotics Clindamycin 300mg PO TID 12/06/2015 Appointment: Stephanie Rios WPtel: [address] [place], [place] [phone] ACUTE ILLNESS 12/06/2015 Patient Education: Patient Medication Summary Completed 12/06/2015 Referral: Lisbeth Darby WPtel: [facility] [address] [facility] 11/18/15 called luther at [facility] office and confirmed time and date of appointment with patient~sl Initiated 11/18/2015 Visit Plan: Referral to Dermatology for removal of facial skin lesions Cefdinir PO bid Topical Mupirocin to skin lesions bid 11/15/2015 Appointment: Stephanie Rios WPtel: [address] [place] [id number] ACUTE ILLNESS 11/15/2015 Patient Education: Patient Medication Summary Completed 11/15/2015 Visit Plan: Continue current meds Accuch ecks daily Fwup with ophthamology as scheduled Will check lab in 3mos then fwup due to recent meds that will affect blood sugar 10/05/2015 Appointment: Lita Barakat WPtel: [address] [place], [place] [phone] 10/04/15 appt confirmed cn Annual Well Visit 08/2016 Patient Education: Patient Medication Summary Completed 10/05/2015 Visit Plan: Trajenta -1 sample box given Return visit in 6 weeks for fasting labs Notify for worsening symptoms such as Increased redness, swelling, pain or drainage of Rt. knee 07/22/2015 Appointment: Stephanie Rios WPtel: [address] [place], [place] [phone] 07/21 vm left cn FOLLOW UP 07/22/2015 Patient Education: Patient Medication Summary Completed 07/22/2015 Visit Plan: Continue to change dressing twice daily and apply Mupirocin Complete Doxycycline as directed. Follow-up for worsening symptoms, such as increased swelling, redness or pain. 07/01/2015 Appointment: Stephanie Rios WPtel: [address] [place], [place] [phone] FOLLOW UP 07/01/2015 Patient Education: Patient Medication Summary Completed 07/01/2015 Visit Plan: Pressure dressing applied to draining wound left knee. Instructed to change dressing twice daily and continue Mupirocin topical Doxycycline PO bid x 10 days Wound culture obtained. Wound tissue sent to pathology Follow-up in 3 days 06/28/2015 Appointment: Stephanie Rios WPtel: [address] [place], [place] [phone] ACUTE ILLNESS 06/28/2015 Patient Education: Patient Medication Summary Completed 06/28/2015 Visit Plan: Complete antibiotics Follow- up for increased tenderness, swelling or drainage. 06/09/2015 Appointment: Stephanie Rios WPtel: [address] [place], [place] [phone] 06/08/15 lm FOLLOW UP 06/09/2015 Patient Education: Patient Medication Summary Completed 06/09/2015 Visit Plan: Apply pressure dressing toda y Continue antibiotics and topical Mupirocin Follow-up in 2 days Bursa drained from open area using pressure--serosanguinous drainage 06/07/2015 Appointment: Stephanie Rios WPtel: [address] [place], [place] [phone] 06/04/15 confirmed with patient FOLLOW UP 0 06/07/2015 Patient Education: Patient Medication Summary Completed 06/07/2015 Visit Plan: Wound culture Lt. knee Apply mupirocin to open wound bid Clindamycin 600 mg PO bid x 10 days Follow-up on Sunday06/03/2015 Appointment: Stephanie Rios WPtel: [address] [place], [place] [phone] ACUTE ILLNESS 06/03/2015 Patient Education: Patient Medication Summary Completed 06/03/2015 Visit Plan: Accuchecks daily Check CMP, HbA1C today Patient is noncompliant with meds and diet but patient says he is doing everything he is supposed to do Wants to try performomist instead of albuterol in SVN 06/01/2015 Appointment: Lita Barakat WPtel: [address] [place], [place] [phone] 05/28 appt confirmed cn FOLLOW UP 06/01/20 Patient Education: Patient Medication Summary Completed 06/01/2015 Visit Plan: Change Breo Ellipta to Advai r 500/50 1 p BID this next month Continue turdoza Use albuterol prn Check CMP, HbA1C today Accuchecks daily Cryotherapy as above 02/25/2015 Appointment: Lita Barakat WPtel: [address] [place], [place] [phone] 02/24 appt confirmed and explained needed payment he said ok FOLLOW UP 02/25/2015 Patient Education: Patient Medication Summary Completed 02/25/2015 Referral: Lopez Chacon[facility] [address] [facility] C&D [id number] Will put patient on cancellation list Initiated 12/08/2014 Appointment: Lita Barakat WPtel: [facility] Hospital Follow Up 10/29/2014 Visit Plan: Finish prednisone Continue S VNs with albuterol QID See pulmonology and start Pulmonary rehab Once again discussed taking it easy this winter--that he is high risk for exacerbation 10/27/2014 Appointment: Lita Barakat WPtel: [address] [place], [place] [phone] FOLLOW UP 10/27/2014 Patient Education: Patient Medication Summary Completed 10/27/2014 Appointment: Lita Barakat WPtel: [address] [place], [place] [phone] FOLLOW UP 10/26/2014 Appointment: Stephanie Rios WPtel: [address] [place], [place] [phone] WORK IN 10/21/2014 Patient Education: Patient Medication Summary Completed 10/21/2014 Patient Education: Patient Medication Summary Completed 10/19/2014 Visit Plan: Continue oxygen and SVNS wit h duoneb Increase farxiga to 10mg daily Diflucan 100mg daily for 1week 10/06/2014 Appointment: Lita Barakat WPtel: [address] [place], [place] [phone] Moved appt time to 2:45pm FOLLOW UP 2014 Patient Education: Patient Medication Summary Completed 10/06/2014 Visit Plan: Finish omnicef Continue Breo BID and Turdoza Use SVNS with duoneb at least TID for next 2weeks then go to prn 09/21/2014 Appointment: Lita Barakat WPtel: [address] [place], [place] [phone] Hospital Follow Up 09/21/2014 Patient Education: Patient Medication Summary Completed 09/21/2014 Patient Education: [facility] - Saving AutoInj - Ventolin HFA - 18+ - Dynamic Portal ID Completed 09/21/2014 Appointment: Stephanie Rios WPtel: [address] [place], [place] [phone] Scheduled by 09/07 patient rescheduled to 09/08 with Stephanie. Hospital Follow Up 09/08/2014 Patient Education: Patient Medication Summary Completed 09/08/2014 Appointment: Stephanie Rios WPtel: [address] [place], [place] [phone] FOLLOW UP 09/02/2014 Patient Education: Patient Medication Summary Completed 09/02/2014 Patient Education: [employer] - Antibi otics, Analgesics 18+, Oral Contraceptives F 18+ Completed 09/02/2014 Appointment: Lita Barakat WPtel: [address] [place], [place] [phone] [place] UA 08/27/2014 Patient Education: Patient Medication [...] prn sleep 08/10/2014 Appointment: Lita Barakat WPtel: [address] [place] [address] Annual Well Visit 08/10/2014 Patient Education: Patient Medication Summary Completed 08/10/2014 Appointment: Lita Barakat WPtel: [address] [place], [place] [phone] [place] LAB 08/05/2014 Patient Education: Patient Medication Summary Completed 08/05/2014 Visit Plan: ECHO results reviewed Contin ue Breo and Turdoza Pt starts PT this afternoon for back--has had one epidural with no help in pain 05/05/2014 Appointment: Lita Barakat WPtel: [address] [place], [place] [phone] FOLLOW UP 05/05/2014 Patient Education: Patient Medication Summary Completed 05/05/2014 Visit Plan: Continue Breo and Turdoza Camargo s heart tests scheduled next week Will see surgeon for removal of skin cancer to neck after done with cardiac workup 03/24/2014 Appointment: Lita Barakat WPtel: [address] [place], [place] [phone] [place] FOLLOW UP 03/24/2014 Patient Education: Patient Medication Summary Completed 03/24/2014 Visit Plan: Proceed with cardiology eval uation as patient is has numerous risk factors for CAD Change Symbicort to Breo 1p BID and add Turdorza 1p BID Recheck in weeks Check 2-D ECHO and lexiscan 03/10/2014 Appointment: Lita Barakat WPtel: [address] [place], [place] [phone] FOLLOW UP 03/10/2014 Patient Education: Patient Medication Summary Completed 03/10/2014 Visit Plan: Shoulder injection as above Back brace to use when doing any lifting for stability 12/16/2013 Appointment: Lita Barakat WPtel: [address] [place], [place] [id number] ACUTE ILLNESS 12/16/2013 Patient Education: Patient Medication Summary Completed 12/16/2013 Visit Plan: Continue symbicort and Turdo za Salt water gargles Omnicef 300mg 2 po daily for 1wk Phenergan with codeine 10/09/2013 Appointment: Lita Barakat WPtel: [address] [place], [place] [phone] WORK IN 10/09/2013 Patient Education: Patient Medication Summary Completed 10/09/2013 Appointment: Ruchi Buchanan WPtel: [address] [place], [place] [phone] ACUTE ILLNESS 09/18/2013 Patient Education: Patient Medication Summary Completed 09/18/2013 Visit Plan: Check on repeat CXR Finish a bx Start Tradjenta to replace metformin 08/13/2013 Appointment: Lita Barakat WPtel: [address] [place], [place] [phone] 08/12 Hospital Follow Up 08/13/2013 Patient Education: Patient Medication Summary Completed 08/13/2013 Visit Plan: Admit to hospital 08/06/2013 Appointment: Stephanie Rios WPtel: [address] [place], [place] [phone] ACUTE ILLNESS 08/06/2013 Patient Education: Patient Medication Summary Completed 08/06/2013 Visit Plan: Continue current meds Contin ue accuchecks daily Proceed with stress test due to high risk for CAD 07/16/2013 Appointment: Lita Barakat WPtel: [address] [place] [address] FOLLOW UP 07/16/2013 Patient Education: Patient Medication Summary Completed 07/16/2013 Appointment: Lita Barakat WPtel: [address] [place] [address] LAB 06/25/2013 Patient Education: Patient Medication Summary Completed 06/25/2013 Visit Plan: prednisone and azithromycin. Doing CBC and mycoplasma blood draw. Will continue inhaler and albuterol breathing treatments. 04/09/2013 Appointment: Kimberly Villalba WPtel: [address] [place] [address] ACUTE ILLNESS 04/09/2013 Patient Education: Patient Medication Summary Completed 04/09/2013 Appointment: Lita Barakat WPtel: [address] [place] [address] ACUTE ILLNESS 02/11/2013 Patient Education: Patient Medication Summary Completed 02/11/2013 Appointment: Ruchi Buchanan WPtel: [address] [place] [address] ACUTE ILLNESS 01/31/2013 Patient Education: Patient Medication Summary Completed 01/31/2013 Visit Plan: Cefdinir and medrol dose pac k. Codeine/guiaf cough syrup. Has colonoscopy on Sunday. Pt. is to notify if fever occurs or symptoms worsen. Hydration and rest. 01/20/2013 Appointment: Kimberly Villalba WPtel: [address] [place] [address] ACUTE ILLNESS 01/20/2013 Patient Education: Patient Medication Summary Completed 01/20/2013 Visit Plan: Scopalamine patch and vestib ular exercises 12/19/2012 Appointment: Lita Barakat WPtel: [address] [place] [address] ACUTE ILLNESS 12/19/2012 Patient Education: Patient Medication Summary Completed 12/19/2012 Visit Plan: Dr. Swanson consult if no impr ovement in hearing. Pt. reports he will notify if no better in one week. Willam consult for skin lesion. 10/21/2012 Appointment: Kimberly Villalba WPtel: [address] [place], [place] [phone] ACUTE ILLNESS 10/21/2012 Patient Education: Patient Medication Summary Completed 10/21/2012 Appointment: Lita Barakat WPtel: [address] [place], [place] [phone] [place] LAB 09/19/2012 Patient Education: Patient Medication Summary Completed 09/19/2012 Visit Plan: Check fasting lab in AM--CMP , Lipids, HbA1C 09/18/2012 Appointment: Lita Barakat WPtel: [address] [place], [place] [phone] FOLLOW UP 09/18/2012 Patient Education: Patient Medication Summary Completed 09/18/2012 Appointment: Lita Barakat WPtel: [address] [place], [place] [phone] appt time scheduled sooner FOLLOW UP 09/05 Visit Plan: Doxycycline and Prednisone I ncrease SVN to QID Add back Symbicort 160/4.5 2 p BID 08/28/2012 Appointment: Lita Barakat WPtel: [address] [place], [place] [phone] [place] FOLLOW UP 08/28/2012 Patient Education: Patient Medication Summary Completed 08/28/2012 Appointment: Lita Barakat WPtel: [address] [place], [place] [phone] Annual Well Visit 07/10/2012 Patient Education: Patient Medication Summary Completed 07/10/2012 Visit Plan: Finish Z-pack Add Nasonex Ad d Meclizine Vestibular exercises Continue current meds and accuchecks Check lab and fwup in 4mos 05/09/2012 Appointment: Lita Barakat WPtel: [address] [place], [place] [id number] [place] number no longer works FOLLOW UP 2 Patient Education: Patient Medication Summary Completed 05/09/2012 Appointment: Lita Barakat WPtel: [address] [place], [place] [phone] [place] LAB 05/06/2012 Patient Education: Patient Medication Summary Completed 05/06/2012 Appointment: Lita Barakat WPtel: [address] [place], [place] [phone] [place] LAB 05/02/2012 Appointment: Lita Barakat WPtel: [address] [place], [place] [phone] [place] INJECTION 02/05/2012 Patient Education: Patient Medication Summary Completed 02/05/2012 Visit Plan: cefdinir. Will focus on rest and fluids. Pt. reports he is using breathing treatments as needed. Pt. will monitor for worsening symptoms or fever. 10/02/2011 Appointment: Kimberly Villalba WPtel: [address] [place], [place] [phone] ACUTE ILLNESS 10/02/2011 Patient Education: Patient Medication Summary Completed 10/02/2011 Appointment: Lita Barakat WPtel: [address] [place], [place] [phone] [place] INJECTION 08/10/2011 Patient Education: Patient Medication Summary Completed 08/10/2011 Visit Plan: Continue current meds Restar t Advair Restart exercise Flu shot given 08/07/2011 Appointment: Lita Barakat WPtel: [address] [place], [place] [id number] [place] FOLLOW UP 08/07/2011 Patient Education: Patient Medication Summary Completed 08/07/2011 Appointment: Lita Barakat WPtel: [address] [place], [place] [phone] [place] LAB 07/26/2011 Patient Education: Patient Medication Summary Completed 07/26/2011 Visit Plan: ALEKSANDER Carmen Continue Metformin but change to BID Add Lantus 25u sc q PM BS readings in 1wk 04/03/2011 Appointment: Lita Barakat WPtel: [address] [place] [address] ACUTE ILLNESS 04/03/2011 Patient Education: Patient Medication Summary Completed 04/03/2011 Appointment: Lita Barakat WPtel: [address] [place], [place] [phone] [place] INJECTION 01/19/2011 Patient Education: Patient Medication Summary Completed 01/19/2011 Appointment: Lita Barakat WPtel: [address] [place] [address] ACUTE ILLNESS 01/18/2011 Patient Education: Patient Medication Summary Completed 01/18/2011 Appointment: Lita Barakat WPtel: [address] [place] [address] [place] INJECTION 12/21/2010 Patient Education: Patient Medication Summary Completed 12/21/2010 Appointment: Lita Barakat WPtel: [address] [place] [address] [place] FOLLOW UP 12/19/2010 Patient Education: Patient Medication Summary Completed 12/19/2010 Appointment: Lita Barakat WPtel: [address] [place], [place] [phone] [place] LAB 12/07/2010 Patient Education: Patient Medication Summary Completed 12/07/2010 Appointment: Kimberly Villalba WPtel: [address] [place], [place] [phone] ACUTE ILLNESS 04/05/2010 Patient Education: Patient Medication Summary Completed 04/05/2010 Appointment: Lita Barakat WPtel: [address] [place] [address] [place] WORK IN 03/14/2010 Patient Education: Patient Medication Summary Completed 03/14/2010 Appointment: Lita Barakat WPtel: [address] [place], [place] [phone] [place] LAB 03/02/2010 Visit Plan: HbA1C in 3mos. Continue Accu checks BID alternating times. Switch lexapro to celexa 01/13/2010 Appointment: Lita Barakat WPtel: [address] [place], [place] [phone] FOLLOW UP 01/13/2010 Patient Education: Patient Medication Summary Completed 01/13/2010 Appointment: Lita Barakat WPtel: [address] [place], [place] [phone] FOLLOW UP 01/11/2010 Visit Plan: Pt. will continue the Avalox and Doxycycline regimen as prescribed the previous day. He has been advised to continue inhalers, breathing treatments and oxygen therapy for at least the weekend. Moderate activity without strenuous exercise. The pt. will seek immediate re-eval if his symptoms worsen. 12/23/2009 Appointment: Kimberly Villalba WPtel: [address] [place] [address] FOLLOW UP 12/23/2009 Patient Education: Patient Medication [...] tomorrow morning. 12/22/2009 Appointment: Kimberly Villalba WPtel: [address] [place], [place] [phone] ACUTE ILLNESS 12/22/2009 Patient Education: Patient Medication Summary Completed 12/22/2009 Appointment: Kimberly Villalba WPtel: [address] [place], [place] [phone] FOLLOW UP 12/21/2009 Appointment: [facility] [phone] [facility] [place] [facility] 12/16/2009 Patient Education: Patient Medication Summary Completed 12/16/2009 Appointment: Kimberly Villalba WPtel: [address] [facility] [place] ACUTE ILLNESS 12/13/2009 Patient Education: Patient Medication Summary Completed 12/13/2009 Care Plan: X-RAY EXAM OF SHOULDER lt shoulder (pain ra diates across the shoulder) Hand carried orders to [facility] LOINC : 24542-9 Ordered 12/13/2009 Care Plan: X-RAY EXAM THORAC SPINE 2VWS Hand carried order LOINC : 66167-0 Ordered 12/13/2009 Care Plan: X-RAY EXAM RIBS UNI 2 VIEWS Posterior ribs of lt. side Pt. hand carries order to [facility] LOINC : 58428-0 Ordered 12/13/2009 Referral: José Miguel Swanson WPtel: [address] [address] [place] Referral Appointment Requested Referral: José Miguel Swanson WPtel: [address] [address] [place] Referral Appointment Requested Referral: Chandu Quarles WPtel: [phone] Quarles for screening colonoscopy. P atient notified that [facility] office will book appt with him Initiated Referral: Santosh Machado WPtel: [address] [facility] [place] Referral Appointment Requested Referral: José Miguel Swanson WPtel: [address] [address] [place] Referral Initiated Referral: Lopez Chacon [address] [facility] C&D [id number] [place] Referral Initiated Referral: Demetrius Rodriguez WPtel: [address] [address] [place] Referral Appointment Requested Referral: José Miguel Swanson WPtel: [address] [address] [place] Referral Appointment Requested Referral: José Miguel Swanson WPtel: [address] [facility] 3 [id number] [place] Referral Initiated Instructions Comment . Saline nasal flushes prn. Tylenol/Motr in prn headache. Notify if persists/symptoms worsening. . MRI at [facility] Hydrocodone 5.325 1 po q 4-6 [...]
--- OUTSIDE RECORDS SUMMARY | 2019-12-31 00:21 | XMS REPORT | CCD ---
Author Author Leandro Barakat D.O. Organization [facility] Address [address] [place] [address] Phone Care Team Providers Care Systems Coordinator Name Role Phone Lita Barakat D.O., PP Unavailable CCM Unavailable Summary Purpose Interface Exchange Insurance Providers Payer name Policy type / Coverage type Covered constitution party ID Effective Begin Date Effective End Date [employer] MEDICARE Medicare Part B [id number] 2019 Unknown Family history Brother Diagnosis Age At Onset Cancer Unknown Father Diagnosis Age At Onset Heart disease Unknown Mother Diagnosis Age At Onset Heart disease Unknown Social History Social History Element Codes Description Effective Dates Tobacco history SNOMED CT: 6838570 Former smoker quit 15 years ago 08/07/2011 [...] 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.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/22/2016 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: [...] Fill Instructions prednisone 20 mg tablet RxNorm: 607723 1 Tablet(s) Oral two remy es a day 12/25/2019 01/01/2020 Active Levemir FlexTouch U-100 Insulin 100 unit/mL (3 mL) sub cutaneous pen RxNorm: 569507 10 Unit(s) Subcutaneous every night at bedtime 12/22/2019 N o Stop Date Active baclofen 10 mg tablet RxNorm: 062820 1 Tablet(s) Oral QPM for p ain/spasm 12/22/2019 01/21/2020 Active ipratropium 0.5 mg-albuterol 3 mg (2.5 mg base)/3 mL n ebulization soln RxNorm: 1678179 USE 1 VIAL IN NEBULIZER Q4H (THIS REPLACES ALBUTEROL S OLUTION) 11/27/2019 12/16/2019 Inactive hydrocodone 10 mg-acetaminophen 325 mg tablet RxNorm: 935473 1 Tablet(s) Oral Q4H as needed for pain 11/13/2019 No Stop Date Active Seroquel 50 mg tablet RxNorm: 974726 1 Tablet(s) Oral QPM as ne eded for sleep 10/07/2019 12/21/2019 Inactive ropinirole 4 mg tablet RxNorm: 973105 3 TABLET(S) BY [facility] DAILY AT BEDTIME FOR RESTLESS LEGS 09/29/2019 12/27/2019 Active Generic For:REQU IP 4 MG TABLET 09/29/2019 7:52:42 AM N O T I C E Last quantity doesn't match original quantity ropinirole 4 mg tablet RxNorm: 389061 3 TABLET(S) BY [facility] DAILY AT BEDTIME FOR RESTLESS LEGS 09/26/2019 09/28/2019 Inactive Generic For:REQU IP 4 MG TABLET 09/26/2019 9:08:48 AM N O T I C E Last quantity doesn't match original quantity ipratropium 0.5 mg-albuterol 3 mg (2.5 mg base)/3 mL n ebulization soln RxNorm: 5324460 USE 1 VIAL IN NEBULIZER EVERY FOUR HOURS (THIS REPLACES ALBUTEROL SOLUTION) 09/26/2019 10/15/2019 Inactive Generic For:*DUO NEB 2.5-0.5 MG/3 ML SOLN 09/26/2019 9:08:53 AM hydrocodone 10 mg-acetaminophen 325 mg tablet RxNorm: 185162 1 Tablet(s) Oral Q4H as needed for pain 09/09/2019 09/09/2019 Inactive hydrocodone 10 mg-acetaminophen 325 mg tablet RxNorm: 655619 1 Tablet(s) Oral Q4H as needed for pain 09/09/2019 09/08/2019 Inactive ondansetron HCl 4 mg tablet RxNorm: 478312 1 Tablet(s) Oral QPM for nausea 08/12/2019 10/10/2019 Inactive ipratropium 0.5 mg-albuterol 3 mg (2.5 mg base)/3 mL n ebulization soln RxNorm: 7988242 1 Unit Dose INH Q4H 08/12/2019 09/25/2019 Inactive replaces albuterol solution Augmentin 875 mg-125 mg tablet RxNorm: 967150 1 Tablet(s) Oral two times a day 08/07/2019 08/17/2019 Inactive prednisone 20 mg tablet RxNorm: 930157 1 Tablet(s) Oral QD 08/05/2008/04/2019 Inactive prednisone 20 mg tablet RxNorm: 043915 1 Tablet(s) Oral QD 08/05/2008/06/2019 Inactive Levaquin 500 mg tablet RxNorm: 411889 1 Tablet(s) Oral QD Replaces azithromycin (z-pack) 07/31/2019 08/05/2019 Inactive Levaquin 500 mg tablet RxNorm: 009208 1 Tablet(s) Oral QD Replaces azithromycin (z-pack) 07/21/2019 07/26/2019 Inactive Levaquin 500 mg tablet RxNorm: 360601 1 Tablet(s) Oral QD Replaces azithromycin (z-pack) 07/21/2019 07/20/2019 Inactive Zithromax Z-Gui 250 mg tablet RxNorm: 139989 Tablet(s) Oral 019 07/22/2019 Inactive Zithromax Z-Gui 250 mg tablet RxNorm: 688404 Tablet(s) Oral 019 07/15/2019 Inactive Symbicort 160 mcg-4.5 mcg/actuation HFA aerosol inhaler RxNo rm: 6991116 2 Puff(s) Inhalation two times a day 07/14/2019 07/14/2019 Inactive Tessalon Perles 100 mg capsule RxNorm: 060016 1 Capsule(s) Oral Q8H as needed 07/14/2019 08/06/2019 Inactive Seroquel 50 mg tablet RxNorm: 913416 1 Tablet(s) Oral QPM as ne eded for sleep 07/01/2019 10/06/2019 Inactive ondansetron HCl 4 mg tablet RxNorm: 589455 1 Tablet(s) Oral QPM for nausea 06/24/2019 07/24/2019 Inactive Seroquel 25 mg tablet RxNorm: 035395 1 Tablet(s) Oral every nig ht at bedtime 06/19/2019 06/18/2019 Inactive Seroquel 25 mg tablet RxNorm: 539508 1 Tablet(s) Oral every nig ht at bedtime 06/19/2019 06/30/2019 Inactive trazodone 150 mg tablet RxNorm: 600547 1/2 Tablet(s) PO QHS as needed for sleep 06/11/2019 06/17/2019 Inactive replaces PA on doxep in trazodone 150 mg tablet RxNorm: 626890 1/2 Tablet(s) PO QHS as needed for sleep 05/12/2019 06/11/2019 Inactive replaces PA on doxep in Vitamin D3 5,000 unit tablet RxNorm: 510103 1 Tablet(s) PO QD 05/09 No Stop Date Active magnesium oxide 400 mg (241.3 mg magnesium) tablet RxNorm: 1 93804 1 Tablet(s) PO QHS 05/09/2019 No Stop Date Active cyanocobalamin (vit B-12) 1,000 mcg/mL injection solution Rx Norm: 855492 1 injection weekly for 4 weeks 1 Milliliter(s) Inj 05/09/2019 12/21/2019 Inactive ferrous sulfate 325 mg (65 mg iron) tablet RxNorm: 172066 1 Tab let(s) PO QD 05/09/2019 12/21/2019 Inactive ropinirole 4 mg tablet RxNorm: 123404 3 TABLET(S) BY [facility] DAILY AT BEDTIME FOR RESTLESS LEGS 03/26/2019 06/23/2019 Inactive Generic For:REQU IP 4 MG TABLET 03/26/2019 11:23:36 AM N O T I C E Last quantity doesn't match original quantity pantoprazole 40 mg tablet,delayed release RxNorm: 684212 Tablet(s) TAKE 1 TABLET BY MOUTH DAILY FOR STOMACH 03/24/2019 06/21/2019 Inactive Gener ic For:PROTONIX 40MG TAB EC 01/03/2019 1:23:44 PM hydroxyzine HCl 10 mg tablet RxNorm: 379538 1 Tablet(s) PO BID as needed 03/24/2019 04/06/2019 Inactive ipratropium-albuterol 0.5 mg-3 mg(2.5 mg base)/3 mL ne bulization soln RxNorm: 3151681 1 Unit Dose INH Q4H 03/21/2019 No Stop Date Active replaces albuterol solution meclizine 12.5 mg tablet RxNorm: 580114 1 Tablet(s) PO BID as neede d 03/21/2019 12/21/2019 Inactive losartan 100 mg tablet RxNorm: 542413 1 Tablet(s) PO QD replace s lisinopril 03/13/2019 09/08/2019 Inactive fluconazole 100 mg tablet RxNorm: 891803 1 Tablet(s) PO QD 03/13/2003/19/2019 Inactive nystatin 100,000 unit/mL oral suspension RxNorm: 177979 5 Unit( s) PO QID 03/13/2019 03/26/2019 Inactive tramadol 50 mg tablet RxNorm: 135966 1 Tablet(s) PO TID as needed for pain TAKE 2 TABS OF EXTRA STRENGTH TYLENOL WITH EACH DOSE 03/10/2019 04/06/2019 Inactive Generic For:*ULTRAM 50 MG TABLET 01/15/2019 4:55:26 PM Sinemet CR 50 mg-200 mg tablet,extended release RxNorm: 8343 41 1 Tablet(s) PO TID 02/26/2019 08/24/2019 Inactive Generic For:*SIN EMET CR 50/200 TABLET SA 07/08/2018 3:09:11 PM trazodone 150 mg tablet RxNorm: 210888 1/2 Tablet(s) PO QHS as needed for sleep 02/13/2019 02/12/2019 Inactive trazodone 150 mg tablet RxNorm: 509932 1/2 Tablet(s) PO QHS as needed for sleep 02/13/2019 02/25/2019 Inactive replaces PA on doxep in doxepin 10 mg capsule RxNorm: 2618169 1-2 Capsule(s) PO QHS prn sleep 02/13/2019 02/13/2019 Inactive Novolog U-100 Insulin aspart 100 unit/mL subcutaneous soluti on RxNorm: 959000 INJECT 10 UNIT(S) SUBCUTANEOUSLY BEFORE MEALS 01/31/2019 05/30/2019 In active 01/31/2019 1:39:10 PM ipratropium-albuterol 0.5 mg-3 mg(2.5 mg base)/3 mL ne bulization soln RxNorm: 6042309 1 Unit Dose INH Q4H 01/17/2019 03/20/2019 Inactive replaces albuterol solution tramadol 50 mg tablet RxNorm: 728997 1 Tablet(s) PO TID as needed for pain TAKE 2 TABS OF EXTRA STRENGTH TYLENOL WITH EACH DOSE 01/15/2019 02/03/2019 Inactive Generic For:*ULTRAM 50 MG TABLET 01/15/2019 4:55:26 PM Sinemet CR 50 mg-200 mg tablet,extended release RxNorm: 8343 41 1 Tablet(s) PO BID 01/03/2019 02/25/2019 Inactive Generic For:*SIN EMET CR 50/200 TABLET SA 07/08/2018 3:09:11 PM losartan 100 mg tablet RxNorm: 120009 1 Tablet(s) PO QD replace s lisinopril 01/03/2019 03/12/2019 Inactive Symbicort 160 mcg-4.5 mcg/actuation HFA aerosol inhaler RxNo rm: 3897491 2 Puff(s) INH BID 01/03/2019 01/02/2019 Inactive pantoprazole 40 mg tablet,delayed release RxNorm: 109977 TAKE 1 TABLET BY MOUTH DAILY FOR STOMACH 01/03/2019 03/23/2019 Inactive Generic For:KS OTONIX 40MG TAB EC 01/03/2019 1:23:44 PM nystatin 100,000 unit/mL oral suspension RxNorm: 392462 Unit(s) 5 Unit(s) PO QID swish and spit 01/02/2019 11/11/2019 Inactive Incruse Ellipta 62.5 mcg/actuation powder for inhalation RxN orm: 4756012 1 Capsule(s) INH QD 12/25/2018 12/21/2019 Inactive Tessalon Perles 100 mg capsule RxNorm: 231053 1 Capsule(s) PO T ID for cough 12/25/2018 02/25/2019 Inactive Medrol (Gui) 4 mg tablets in a dose pack RxNorm: 558898 Tablet(s) PO Use as directed 12/23/2018 01/02/2019 Inactive Levemir FlexTouch U-100 Insulin 100 unit/mL (3 mL) sub cutaneous pen RxNorm: 858569 20 Unit(s) SQ QD with pen needles 12/13/2018 05/11/2019 Inactiv e prednisone 20 mg tablet RxNorm: 540716 1 Tablet(s) PO QD 12/12/2018 0 12/11/2018 Inactive prednisone 20 mg tablet RxNorm: 535328 1 Tablet(s) PO QD 12/12/2018 0 12/16/2018 Inactive promethazine 6.25 mg-codeine 10 mg/5 mL syrup RxNorm: 573381 5 Milliliter(s) PO QHS as needed for cough 12/09/2018 12/18/2018 Inactive cefdinir 300 mg capsule RxNorm: 160816 1 Capsule(s) PO BID 12/10/1912/18/2018 Inactive fluconazole 100 mg tablet RxNorm: 380429 1 Tablet(s) PO QD 12/06/1912/08/2018 Inactive ropinirole 4 mg tablet RxNorm: 405231 3 Tablet(s) PO QHS for re stless legs 12/04/2018 03/03/2019 Inactive Novolog U-100 Insulin aspart 100 unit/mL subcutaneous soluti on RxNorm: 109707 INJECT 10 UNIT(S) SUBCUTANEOUSLY BEFORE MEALS 12/04/2018 01/30/2019 In active 12/04/2018 10:02:42 AM nystatin 100,000 unit/mL oral suspension RxNorm: 204422 5 Unit(s) PO QID swish and spit 11/25/2018 12/18/2018 Inactive ropinirole 4 mg tablet RxNorm: 594981 3 Tablet(s) PO QHS for re stless legs 11/04/2018 12/03/2018 Inactive prednisone 20 mg tablet RxNorm: 984493 1 Tablet(s) PO BID 10/23/2018 10/29/2018 Inactive ropinirole 4 mg tablet RxNorm: 028846 3 Tablet(s) PO QHS for re stless legs 10/14/2018 11/04/2018 Inactive pantoprazole 40 mg tablet,delayed release RxNorm: 134363 1 Tablet(s) PO QD forstomach 10/10/2018 01/02/2019 Inactive Symbicort 160 mcg-4.5 mcg/actuation HFA aerosol inhaler RxNo rm: 3026424 2 Puff(s) INH BID 10/10/2018 01/03/2019 Inactive Novolog U-100 Insulin aspart 100 unit/mL subcutaneous soluti on RxNorm: 138822 INJECT 10 UNIT(S) SUBCUTANEOUSLY BEFORE MEALS 10/10/2018 12/03/2018 In active 10/10/2018 11:30:01 AM Sinemet CR 50 mg-200 mg tablet,extended release RxNorm: 8343 41 1 Tablet(s) PO BID 09/26/2018 01/03/2019 Inactive Generic For:*SIN EMET CR 50/200 TABLET SA 07/08/2018 3:09:11 PM ropinirole 4 mg tablet RxNorm: 189286 2 Tablet(s) PO QHS for re stless legs 09/18/2018 10/13/2018 Inactive metformin ER 1,000 mg tablet,extended release 24hr RxNorm: 1 607848 1 Tablet(s) PO BID 09/09/2018 12/18/2018 Inactive ropinirole 4 mg tablet RxNorm: 773742 2 Tablet(s) PO QHS for re stless legs 08/21/2018 09/17/2018 Inactive doxycycline hyclate 100 mg capsule RxNorm: 4900635 1 Capsule(s) PO BID 08/07/2018 08/13/2018 Inactive ropinirole 4 mg tablet RxNorm: 083131 1 Tablet(s) PO QHS replac es 1mg dose 08/07/2018 08/20/2018 Inactive ropinirole 2 mg tablet RxNorm: 204513 TAKE 3 TABLETS BY MOUTH DAILY AT BEDTIME DO NOT EXCEED 3 TABLETS PER DAY!!!! 07/31/2018 08/06/2018 Inactive Generic For:REQUIP 2 MG TABLET 07/30/2018 3:50:28 PM Symbicort 160 mcg-4.5 mcg/actuation HFA aerosol inhaler RxNo rm: 6200121 2 Puff(s) INH BID 07/12/2018 10/09/2018 Inactive Sinemet CR 50 mg-200 mg tablet,extended release RxNorm: 8343 41 TAKE 1 TABLET BY MOUTH TWICE DAILY 07/08/2018 09/26/2018 Inactive Generic For:*S INEMET CR 50/200 TABLET SA 07/08/2018 3:09:11 PM losartan 100 mg tablet RxNorm: 044817 1 Tablet(s) PO QD replace s lisinopril 06/17/2018 12/13/2018 Inactive Novolog U-100 Insulin aspart 100 unit/mL subcutaneous soluti on RxNorm: 639590 10 Unit(s) SQ AC 06/17/2018 10/09/2018 Inactive albuterol sulfate 2.5 mg/3 mL (0.083 %) solution for n ebulization RxNorm: 859988 Milliliter(s) INH USE 1 VIAL IN NEBULIZE R EVERY FOUR HOURS NEEDED FOR WHEEZING OR SHORTNESS OF BREATH 06/13/2018 01/16/2019 Inactive Generic For:*PROVENTIL 0.83 MG/ML SOLUTN 06/13/2013 2:04:46 PM ropinirole 2 mg tablet RxNorm: 715697 3 Tablet(s) PO QH S DO NOT EXCEED 6MG (3 TABLETS) PER DAY!!!! 06/13/2018 07/31/2018 Inactive atorvastatin 40 mg tablet RxNorm: 115045 Tablet(s) TAKE 1 TABLET BY MOUTH EVERY DAY 05/13/2018 12/18/2018 Inactive Generic For:LIPI TOR 40MG TAB 05/01/2018 8:37:31 AM Sinemet CR 50 mg-200 mg tablet,extended release RxNorm: 8343 41 1 Tablet(s) PO BID 05/08/2018 07/06/2018 Inactive Lidocaine Viscous 2 % mucosal solution RxNorm: 1465889 5 Milliliter(s) PO QID as needed 05/02/2018 08/06/2018 Inactive Diflucan 100 mg tablet RxNorm: 344089 1 Tablet(s) PO QD 05/02/2018 Inactive atorvastatin 40 mg tablet RxNorm: 258812 TAKE 1 TABLET BY MOUTH EVERY DAY 05/01/2018 05/13/2018 Inactive Generic For:LIPITOR 40MG TAB 05/01/2018 8:37:31 AM nystatin 100,000 unit/mL oral suspension RxNorm: 196213 5 Unit(s) PO QID (before meals and at bedtime) 04/24/2018 04/30/2018 Inactive Ventolin HFA 90 mcg/actuation aerosol inhaler RxNorm: 371741 2 Puff(s) INH Q4H as needed one inhaler for home and one inhaler for car 04/23/201812/18 Inactive Mucinex 600 mg tablet, extended release RxNorm: 635340 1 Tablet(s) PO BID for congestion 04/22/2018 05/21/2018 Inactive prednisone 10 mg tablet RxNorm: 759960 Tablet(s) PO as directeds 08/06/2018 Inactive ropinirole 2 mg tablet RxNorm: 620848 3 Tablet(s) PO QH S DO NOT EXCEED 6MG (3 TABLETS) PER DAY!!!! 04/09/2018 05/08/2018 Inactive gabapentin 300 mg capsule RxNorm: 043263 1-2 Capsule(s) PO QHS 02/201804/08/2018 Inactive ropinirole 2 mg tablet RxNorm: 170562 1 Tablet(s) PO QHS 03/28/2018 0 04/08/2018 Inactive gabapentin 300 mg capsule RxNorm: 982473 1-2 Capsule(s) PO QHS 02/2303/29/2018 Inactive gabapentin 300 mg capsule RxNorm: 915559 1-2 Capsule(s) PO QHS 02/2203/13/2018 Inactive gabapentin 300 mg capsule RxNorm: 016778 2 Capsule(s) PO QHS 201703/11/2018 Inactive ropinirole 2 mg tablet RxNorm: 096281 1 Tablet(s) PO QHS 02/28/2018 0 03/28/2018 Inactive ropinirole 2 mg tablet RxNorm: 319515 1 Tablet(s) PO QHS 02/28/2018 0 02/27/2018 Inactive gabapentin 300 mg capsule RxNorm: 051360 1 Capsule(s) PO QHS 201702/27/2018 Inactive pantoprazole 40 mg tablet,delayed release RxNorm: 757237 1 Tablet(s) PO QD [facility] 01/23/2018 05/22/2018 Inactive Voltaren 1 % topical gel RxNorm: 165473 1 Gram(s) TOP QID to ri ght knee 01/23/2018 02/04/2018 Inactive metformin ER 500 mg tablet,extended release 24hr RxNorm: 860 975 2 Tablet(s) PO BID 01/09/2018 12/08/2018 Inactive Requip 1 mg tablet RxNorm: 472662 1 Tablet(s) PO QHS 01/09/201802/27 Inactive prednisone 20 mg tablet RxNorm: 441673 1 Tablet(s) PO T ID for 3 days then 1 po BID for 3 days then one daily for 3 days 01/02/2018 02/03/2018 Inactiv e Levaquin 500 mg tablet RxNorm: 238617 1 Tablet(s) PO QD 01/02/2018 Inactive ProAir HFA 90 mcg/actuation aerosol inhaler RxNorm: 565018 2 Puff(s) INH Q4H as needed 12/28/2017 No Stop Date Active please switch to ventolin if insurance doesn't cover montelukast 10 mg tablet RxNorm: 924340 1 Tablet(s) PO QD 12/28/2017 02/03/2018 Inactive Levaquin 500 mg tablet RxNorm: 574456 1 Tablet(s) PO QD 12/21/2017 Inactive ProAir HFA 90 mcg/actuation aerosol inhaler RxNorm: 816725 2 Puff(s) INH Q4H as needed 12/21/2017 12/27/2017 Inactive please switch to ventolin if insurance doesn't cover doxycycline hyclate 100 mg tablet RxNorm: 813819 1 Tablet(s) PO BID 12/17/2017 12/26/2017 Inactive Levemir FlexTouch U-100 Insulin 100 unit/mL (3 mL) sub cutaneous pen RxNorm: 611157 20 Unit(s) SQ QD with pen needles---Due for labs 12/11/2017 02/03/2018 Inactive Requip 1 mg tablet RxNorm: 852942 1 Tablet(s) PO QHS 12/10/201712/09 Inactive Requip 1 mg tablet RxNorm: 271219 1 Tablet(s) PO QHS 12/10/201701/09 Inactive albuterol sulfate 2.5 mg/3 mL (0.083 %) solution for n ebulization RxNorm: 545202 Milliliter(s) INH USE 1 VIAL IN NEBULIZE R EVERY FOUR HOURS NEEDED FOR WHEEZING OR SHORTNESS OF BREATH 12/05/2017 06/13/2018 Inactive Generic For:*PROVENTIL 0.83 MG/ML SOLUTN 06/13/2013 2:04:46 PM Tudorza Pressair 400 mcg/actuation breath activated RxNorm: 7006251 1 Puff(s) INH BID 12/03/2017 12/10/2017 Inactive Levemir FlexTouch U-100 Insulin 100 unit/mL (3 mL) sub cutaneous pen RxNorm: 626931 10 Unit(s) SQ QD with pen needles---Due for labs 11/16/2017 12/10/2017 Inactive Zofran ODT 4 mg disintegrating tablet RxNorm: 624965 1 Tablet(s) PO Q4H as needed for nausea 10/17/2017 02/04/2018 Inactive Efudex 5 % topical cream RxNorm: 472154 Application TOP QD prn to precancer skin lesions 10/17/2017 02/03/2018 Inactive Sinemet CR 50 mg-200 mg tablet,extended release RxNorm: 8343 41 1 Tablet(s) PO BID 10/17/2017 02/05/2018 Inactive Sinemet CR 50 mg-200 mg tablet,extended release RxNorm: 8343 41 1 Tablet(s) PO QHS 09/25/2017 10/16/2017 Inactive gabapentin 600 mg tablet RxNorm: 971159 1 Tablet(s) PO BID 08/15/20 17 08/14/2017 Inactive gabapentin 600 mg tablet RxNorm: 492982 1 Tablet(s) PO BID 08/15/20 17 12/10/2017 Inactive Novolog U-100 Insulin aspart 100 unit/mL subcutaneous soluti on RxNorm: 845191 10 Unit(s) SQ AC 08/15/2017 02/03/2018 Inactive Novolog 100 unit/mL subcutaneous solution RxNorm: 234216 10 Uni t(s) SQ AC 08/13/2017 08/14/2017 Inactive prednisone 20 mg tablet RxNorm: 943184 2 Tablet(s) PO QD 08/02/201710/04/2016 Inactive gabapentin 600 mg tablet RxNorm: 639806 Tablet(s) 1 Tab let(s) PO QHS replaces 300mg dose 07/09/2017 08/14/2017 Inactive Breo Ellipta 100 mcg-25 mcg/dose powder for inhalation RxNor m: 4461898 1 Unit Dose INH QD 07/02/2017 08/30/2017 Inactive Tudorza Pressair 400 mcg/actuation breath activated RxNorm: 5837821 1 Puff(s) INH BID 06/18/2017 12/02/2017 Inactive gabapentin 600 mg tablet RxNorm: 433606 1 Tablet(s) PO QHS repl aces 300mg dose 06/14/2017 07/08/2017 Inactive metformin ER 1,000 mg tablet,extended release 24hr RxNorm: 1 241291 1 Tablet(s) PO BID 05/29/2017 01/08/2018 Inactive cyclobenzaprine 5 mg tablet RxNorm: 281096 1 Tablet(s) PO TID 05/2906/07/2017 Inactive metformin ER 1,000 mg tablet,extended release 24hr RxNorm: 8 31476 1 Tablet(s) PO BID 05/25/2017 05/28/2017 Inactive metformin ER 1,000 mg tablet,extended release 24hr RxNorm: 8 74556 1 Tablet(s) PO BID 05/22/2017 05/24/2017 Inactive Amaryl 2 mg tablet RxNorm: 092843 1 Tablet(s) PO BID 05/01/201702/03 Inactive glimepiride 2 mg tablet RxNorm: 740397 1 Tablet(s) PO BID 04/19/2017 02/03/2018 Inactive ferrous sulfate 325 mg (65 mg iron) tablet RxNorm: 799295 1 Tab let(s) PO QHS 04/17/2017 02/03/2018 Inactive Requip 4 mg tablet RxNorm: 359929 1 Tablet(s) PO BID 04/12/201704/11 Inactive Requip 4 mg tablet RxNorm: 647691 1 Tablet(s) PO BID 04/12/201704/15 Inactive Levemir FlexTouch 100 unit/mL (3 mL) subcutaneous insulin pe n RxNorm: 656267 10 Unit(s) SQ QD with pen needles---Due for labs 04/05/2017 11/15/2017 In active Silenor 3 mg tablet RxNorm: 454107 1 Tablet(s) PO QHS 04/05/201709/25 Inactive ropinirole 4 mg tablet RxNorm: 306815 1 Tablet(s) PO QHS 03/29/2017 0 04/01/2017 Inactive ropinirole 4 mg tablet RxNorm: 539837 1 Tablet(s) PO QHS 03/29/2017 0 03/28/2017 Inactive Requip 4 mg tablet RxNorm: 562656 1 Tablet(s) PO QHS 03/28/201704/01 Inactive gabapentin 600 mg tablet RxNorm: 034410 1 Tablet(s) PO QHS repl aces 300mg dose 03/28/2017 04/15/2017 Inactive Requip 4 mg tablet RxNorm: 005883 1 Tablet(s) PO QHS 03/23/201703/27 Inactive gabapentin 600 mg tablet RxNorm: 880729 1 Tablet(s) PO QHS 03/13/20 17 03/12/2017 Inactive gabapentin 600 mg tablet RxNorm: 589639 1 Tablet(s) PO QHS 03/13/20 17 03/27/2017 Inactive gabapentin 300 mg capsule RxNorm: 412895 1 Capsule(s) PO QPM 201603/12/2017 Inactive Generic For:NEURONTIN 300 MG CAPSULE 01/22/2017 10:10:39 AM losartan 100 mg tablet RxNorm: 104374 1 Tablet(s) PO QD replace s lisinopril 02/21/2017 06/17/2018 Inactive gabapentin 300 mg capsule RxNorm: 571627 TAKE 1 CAPSULE BY MOUT H EVERY EVENING 01/22/2017 02/21/2017 Inactive Generic For:NEURONTI N 300 MG CAPSULE 01/22/2017 10:10:39 AM gabapentin 300 mg capsule RxNorm: 911619 1 Capsule(s) PO QPM 201601/21/2017 Inactive Requip 4 mg tablet RxNorm: 827002 1 Tablet(s) PO QHS 12/21/201603/20 Inactive Effient 10 mg tablet RxNorm: 222467 1 Tablet(s) PO QD 12/12/201612/23 Inactive gabapentin 300 mg capsule RxNorm: 032629 1 Capsule(s) PO QPM 201612/03/2016 Inactive gabapentin 300 mg capsule RxNorm: 718919 1 Capsule(s) PO QPM 201612/13/2016 Inactive Requip 4 mg tablet RxNorm: 262084 1 Tablet(s) PO QHS 11/28/201612/21 Inactive atorvastatin 40 mg tablet RxNorm: 496932 Tablet(s) 1 Tablet(s) PO Q D 11/22/2016 08/18/2017 Inactive atorvastatin 40 mg tablet RxNorm: 248211 1 Tablet(s) PO QD 11/23/19 17 11/21/2016 Inactive ropinirole 1 mg tablet RxNorm: 520773 2.5 Tablet(s) PO QPM for legs/sleep 11/14/2016 11/27/2016 Inactive nystatin 100,000 unit/mL oral suspension RxNorm: 398024 5 Unit(s) PO QID swish and spit 10/31/2016 02/03/2018 Inactive fluconazole 100 mg tablet RxNorm: 941278 1 Tablet(s) PO QD 10/31/19 17 11/09/2016 Inactive doxycycline hyclate 100 mg capsule RxNorm: 4417852 1 Capsule(s) PO BID 10/03/2016 10/12/2016 Inactive Levemir FlexTouch 100 unit/mL (3 mL) subcutaneous insulin pe n RxNorm: 137368 10 Unit(s) SQ QD with pen needles 09/18/2016 04/04/2017 Inactive amitriptyline 25 mg tablet RxNorm: 673694 1 Tablet(s) P O QHS as needed for sleep 09/04/2016 10/17/2016 Inactive ropinirole 1 mg tablet RxNorm: 340529 1.5 Tablet(s) PO QPM for legs/sleep 09/04/2016 11/13/2016 Inactive amitriptyline 25 mg tablet RxNorm: 969292 1 Tablet(s) P O QHS as needed for sleep 08/22/2016 09/03/2016 Inactive clopidogrel 75 mg tablet RxNorm: 456348 1 Tablet(s) PO QD 08/10/2016 10/17/2016 Inactive Zoloft 100 mg tablet RxNorm: 493327 2 Tablet(s) PO QHS 08/10/2016 Inactive atorvastatin 40 mg tablet RxNorm: 419013 1 Tablet(s) PO QD 08/10/2010/17/2016 Inactive ropinirole 1 mg tablet RxNorm: 196281 1 Tablet(s) PO QPM for le gs/sleep 08/10/2016 09/03/2016 Inactive losartan 100 mg tablet RxNorm: 325638 1 Tablet(s) PO QD replace s lisinopril 07/20/2016 02/21/2017 Inactive Zofran 4 mg tablet RxNorm: 179609 1 Tablet(s) PO Q4H as needed for nausea 07/06/2016 10/17/2016 Inactive Flagyl 500 mg tablet RxNorm: 798686 1 Tablet(s) PO TID 07/06/2016 Inactive Plavix 75 mg tablet RxNorm: 376093 1 Tablet(s) PO QD 06/08/201607/05 Inactive isosorbide mononitrate ER 30 mg tablet,extended release 24 h r RxNorm: 733662 1 Tablet(s) PO QAM 06/08/2016 08/09/2016 Inactive atorvastatin 40 mg tablet RxNorm: 204953 1 Tablet(s) PO QD 06/08/20 16 08/09/2016 Inactive hydrochlorothiazide 12.5 mg tablet RxNorm: 403989 1 Tablet(s) PO QA M 06/08/2016 07/05/2016 Inactive metformin ER 1,000 mg tablet,extended release 24hr RxNorm: 8 32992 1 Tablet(s) PO BID 06/08/2016 09/05/2016 Inactive metoprolol tartrate 25 mg tablet RxNorm: 941505 1/2 Tablet(s) PO BI D 06/08/2016 08/09/2016 Inactive Zoloft 100 mg tablet RxNorm: 210980 2 Tablet(s) PO QHS 04/03/2016 Inactive metformin ER 1,000 mg tablet,extended release 24hr RxNorm: 8 01546 Tablet(s) 1 Tablet(s) PO QD 03/30/2016 12/18/2018 Inactive Levemir FlexTouch 100 unit/mL (3 mL) subcutaneous insulin pe n RxNorm: 570970 10 Unit(s) SQ QD 03/09/2016 03/08/2016 Inactive Levemir FlexTouch 100 unit/mL (3 mL) subcutaneous insulin pe n RxNorm: 170519 10 Unit(s) SQ QD with pen needles 03/09/2016 03/20/2016 Inactive Mobic 15 mg tablet RxNorm: 848180 1 Tablet(s) PO QD for foot pain 0 02/17/2016 03/17/2016 Inactive Zoloft 100 mg tablet RxNorm: 802498 1 1/2 Tablet(s) PO QHS 01/31/20 16 04/02/2016 Inactive omeprazole 20 mg capsule,delayed release RxNorm: 191919 TAKE 2 CAPSULES BY MOUTH EVERY DAY 01/12/2016 08/09/2016 Inactive Generic For:*CHERYL LOSEC [address] 01/12/2016 8:58:34 AM Zoloft 100 mg tablet RxNorm: 683338 1/2 Tablet(s) PO QH S for 1 week then 1 tablet po q HS 12/30/2015 01/27/2016 Inactive Ventolin HFA 90 mcg/actuation aerosol inhaler RxNorm: 940534 2 Puff(s) INH QID as needed for shortness of breath 12/30/2015 02/03/2018 Inactive [AttnRPh: Saving apply/adjudicate RxGRP:SG20 RxBIN:[id number] RxPCN: ID#:[id number]] metformin ER 1,000 mg tablet,extended release 24hr RxNorm: 8 91503 1 Tablet(s) PO QD 12/20/2015 03/18/2016 Inactive clindamycin 300 mg capsule RxNorm: 627740 1 Capsule(s) PO TID 12/0512/15/2015 Inactive mupirocin 2 % topical cream RxNorm: 878168 TOP to facial lesion s twice daily 11/15/2015 12/15/2015 Inactive cefdinir 300 mg capsule RxNorm: 400166 1 Capsule(s) PO BID 11/15/19 16 11/24/2015 Inactive Medrol (Gui) 4 mg tablets in a dose pack RxNorm: 483792 Tablet(s) PO as directed 10/11/2015 12/15/2015 Inactive albuterol sulfate 2.5 mg/3 mL (0.083 %) solution for n ebulization RxNorm: 598428 INH USE 1 VIAL IN NEBULIZER EVERY FOUR H OURS NEEDED FOR WHEEZING OR SHORTNESS OF BREATH 10/05/2015 10/04/2015 Inactive Generic For:*PRO VENTIL 0.83 MG/ML SOLUTN 06/13/2013 2:04:46 PM doxycycline hyclate 100 mg capsule RxNorm: 7028811 1 Capsule(s) PO BID 10/05/2015 10/14/2015 Inactive albuterol sulfate 2.5 mg/3 mL (0.083 %) solution for n ebulization RxNorm: 294994 Milliliter(s) INH USE 1 VIAL IN NEBULIZE R EVERY FOUR HOURS NEEDED FOR WHEEZING OR SHORTNESS OF BREATH Dx: J44.9 10/05/2015 12/05/2017 Inacti ve Generic For:*PROVENTIL 0.83 MG/ML SOLUTN 06/13/2013 2:04:46 PM albuterol sulfate 2.5 mg/3 mL (0.083 %) solution for n ebulization RxNorm: 426636 3 Milliliter(s) INH USE 1 VIAL IN NEBULI ZER EVERY FOUR HOURS NEEDED FOR WHEEZING OR SHORTNESS OF BREATH 09/06/2015 10/04/2015 Inactive Generic For:*PROVENTIL 0.83 MG/ML SOLUTN 06/13/2013 2:04:46 PM Tradjenta 5 mg tablet RxNorm: 5529492 2 Tablet(s) PO QD 07/22/2015 Inactive albuterol sulfate 2.5 mg/3 mL (0.083 %) solution for n ebulization RxNorm: 202373 3 Milliliter(s) INH USE 1 VIAL IN NEBULI ZER EVERY FOUR HOURS NEEDED FOR WHEEZING OR SHORTNESS OF BREATH 06/29/2015 09/05/2015 Inactive Generic For:*PROVENTIL 0.83 MG/ML SOLUTN 06/13/2013 2:04:46 PM albuterol sulfate 2.5 mg/3 mL (0.083 %) solution for n ebulization RxNorm: 066353 Milliliter(s) INH USE 1 VIAL IN NEBULIZE R EVERY FOUR HOURS NEEDED FOR WHEEZING OR SHORTNESS OF BREATH 06/29/2015 12/04/2017 Inactive Generic For:*PROVENTIL 0.83 MG/ML SOLUTN 06/13/2013 2:04:46 PM doxycycline hyclate 100 mg tablet RxNorm: 422305 1 Tablet(s) PO BID 06/28/2015 07/07/2015 Inactive losartan 100 mg tablet RxNorm: 480678 1 Tablet(s) PO QD -replac es lisinopril 06/14/2015 09/05/2015 Inactive metformin ER 1,000 mg tablet,extended release 24hr RxNorm: 8 42157 1 Tablet(s) PO QD 06/14/2015 09/11/2015 Inactive losartan 100 mg tablet RxNorm: 492351 1 Tablet(s) PO QD -replac es lisinopril 06/14/2015 12/10/2015 Inactive Zocor 20 mg tablet RxNorm: 747279 Tablet(s) Tablet(s) 1 Tablet(s) PO QD -needs lipids labs 06/14/2015 06/14/2015 Inactive atorvastatin 40 mg tablet RxNorm: 718099 1 Tablet(s) PO QD repl aces simvastatin 06/14/2015 12/10/2015 Inactive loratadine 10 mg tablet RxNorm: 058674 Tablet(s) 1 Tablet(s) PO QD for drainage 06/14/2015 06/07/2016 Inactive Celexa 40 mg tablet RxNorm: 481458 1 Tablet(s) PO QD TA KE ONE (1) TABLET BY MOUTH DAILY 06/14/2015 12/29/2015 Inactive Generic For:HARJINDER XA 40 MG TABLET clindamycin 300 mg capsule RxNorm: 769568 2 Capsule(s) PO BID 06/0306/12/2015 Inactive metformin ER 1,000 mg tablet,extended release 24hr RxNorm: 8 31217 1 Tablet(s) PO QD 06/03/2015 06/02/2015 Inactive metformin ER 1,000 mg tablet,extended release 24hr RxNorm: 8 30285 1 Tablet(s) PO QD 06/03/2015 06/13/2015 Inactive mupirocin 2 % topical ointment RxNorm: 025603 TOP apply to open lesion of knee twice daily 06/03/2015 01/30/2016 Inactive Zocor 20 mg tablet RxNorm: 837566 Tablet(s) 1 Tablet(s ) PO QD -needs lipids labs 05/13/2015 06/13/2015 Inactive Celexa 40 mg tablet RxNorm: 166750 1 Tablet(s) PO QD TA KE ONE (1) TABLET BY MOUTH DAILY 05/13/2015 06/13/2015 Inactive Generic For:HARJINDER XA 40 MG TABLET Zocor 20 mg tablet RxNorm: 747948 Tablet(s) 1 Tablet(s ) PO QD -needs lipids labs 02/23/2015 03/24/2015 Inactive loratadine 10 mg tablet RxNorm: 468244 1 Tablet(s) PO QD for dr saenz 12/24/2014 06/13/2015 Inactive Zocor 20 mg tablet RxNorm: 030705 1 Tablet(s) PO QD -needs lipi ds labs 11/17/2014 02/23/2015 Inactive Celexa 40 mg tablet RxNorm: 757510 1 Tablet(s) PO QD 1 Tablet(s) PO QD 1 Tablet(s) PO QD Generic OKAY 11/11/2014 05/13/2015 Inactive Zocor 20 mg tablet RxNorm: 850483 1 Tablet(s) PO QD -needs lipi ds labs 11/11/2014 11/16/2014 Inactive omeprazole 20 mg capsule,delayed release RxNorm: 887731 2 Capsule(s) PO QD TAKE 2 CAPSULES BY MOUTH DAILY 10/27/2014 04/24/2015 Inactive Shena harp For:*PRILOSEC 20 MG CAPSULE trazodone 50 mg tablet RxNorm: 218373 1 1/2 Tablet(s) PO QHS 201412/29/2015 Inactive losartan 100 mg tablet RxNorm: 959787 1 Tablet(s) PO QD -replac es lisinopril 10/26/2014 04/23/2015 Inactive Levaquin 500 mg tablet RxNorm: 178735 1 Tablet(s) PO QD 10/08/2014 Inactive Levaquin 500 mg tablet RxNorm: 672057 1 Tablet(s) PO QD 10/08/2014 Inactive Diflucan 100 mg tablet RxNorm: 248121 1 Tablet(s) PO QD 10/06/2014 Inactive DuoNeb 0.5 mg-3 mg(2.5 mg base)/3 mL solution for nebulizati on RxNorm: 6912191 3 Milliliter(s) INH QID 09/23/2014 08/09/2016 Inactive Ventolin HFA 90 mcg/actuation aerosol inhaler RxNorm: 811448 2 Puff(s) INH QID as needed for shortness of breath 09/21/2014 12/29/2015 Inactive [AttnRPh: Saving apply/adjudicate RxGRP:SG20 RxBIN:[id number] RxPCN: ID#:[id number]] promethazine-codeine 6.25 mg-10 mg/5 mL syrup RxNorm: 740094 1 Teaspoon(s) PO QHS as needed for cough 09/08/2014 09/20/2014 Inactive prednisone 20 mg tablet RxNorm: 674815 1 Tablet(s) PO BID 09/02/2014 09/08/2014 Inactive promethazine-codeine 6.25 mg-10 mg/5 mL syrup RxNorm: 579711 1 Teaspoon(s) PO Q4H 09/02/2014 09/20/2014 Inactive doxycycline monohydrate 100 mg capsule RxNorm: 492027 1 Capsule (s) PO BID 09/02/2014 09/07/2014 Inactive Tessalon Perles 100 mg capsule RxNorm: 992312 1 Capsule (s) PO TID as needed for cough 08/31/2014 09/20/2014 Inactive Actos 15 mg tablet RxNorm: 644491 1 Tablet(s) PO QAM 1 Tablet(s ) PO QAM 08/26/2014 09/20/2014 Inactive loratadine 10 mg tablet RxNorm: 332100 1 Tablet(s) PO QD for dr saezn 08/26/2014 10/26/2014 Inactive Zithromax 500 mg tablet RxNorm: 028724 1 Tablet(s) PO QD 08/25/2014 1 11/01/2013 Inactive Zithromax 500 mg tablet RxNorm: 551686 1 Tablet(s) PO QD 08/25/2014 1 10/25/2013 Inactive Trazadone 75mg Tablet RxNorm: 1 Tablet(s) PO QHS 08/10/20142018 Inactive Zocor 20 mg tablet RxNorm: 426075 1 Tablet(s) PO QD 08/10/20142014 Inactive Trazadone 75mg Tablet RxNorm: 1 Tablet(s) PO QHS as need ed for sleep 08/10/2014 10/08/2014 Inactive Celexa 40 mg tablet RxNorm: 289109 1 Tablet(s) PO QD 1 Tablet(s) PO QD 1 Tablet(s) PO QD Generic OKAY 06/09/2014 10/06/2014 Inactive Actos 15 mg tablet RxNorm: 688334 1 Tablet(s) PO QAM 05/12/201408/26 Inactive lisinopril 20 mg tablet RxNorm: 043095 1 Tablet(s) PO QD 05/12/2014 0 10/26/2014 Inactive TAKE ONE TABLET BY MOUTH EVERY DAY;Gener ic For:*PRINIVIL 20 MG TABLET [AttnRPh: Saving apply/adjudicate RxGRP:SG20 RxBIN:[id number] RxPCN: ID#:[id number]] hydrocodone 5 mg-acetaminophen 325 mg tablet RxNorm: 588647 1 Tablet(s) PO TID as needed for pain for severe pain 04/30/2014 08/09/2014 Inactive hydrocodone 5 mg-acetaminophen 325 mg tablet RxNorm: 397892 1 Tablet(s) PO TID as needed for pain for severe pain 04/17/2014 04/29/2014 Inactive doxycycline hyclate 100 mg capsule RxNorm: 956813 1 Capsule(s) PO BID 03/05/2014 03/04/2014 Inactive doxycycline hyclate 100 mg capsule RxNorm: 086205 1 Capsule(s) PO BID 03/05/2014 03/14/2014 Inactive albuterol sulfate 2.5 mg/3 mL (0.083 %) solution for n ebulization RxNorm: 219655 Milliliter(s) INH USE 1 VIAL IN NEBULIZE R EVERY FOUR HOURS NEEDED FOR WHEEZING OR SHORTNESS OF BREATH 03/02/2014 06/29/2015 Inactive Generic For:*PROVENTIL 0.83 MG/ML SOLUTN 06/13/2013 2:04:46 PM Celexa 40 mg tablet RxNorm: 046691 1 Tablet(s) PO QD 1 Tablet(s) PO QD replaces lexapro. Generic OKAY 01/13/2014 06/09/2014 Inactive Actos 15 mg tablet RxNorm: 123937 1 Tablet(s) PO QAM 01/07/201405/12 Inactive lisinopril 20 mg tablet RxNorm: 722976 1 Tablet(s) PO QD 12/08/2013 0 05/12/2014 Inactive TAKE ONE TABLET BY MOUTH EVERY DAY;Gener ic For:*PRINIVIL 20 MG TABLET cefdinir 300 mg capsule RxNorm: 687919 2 Capsule(s) PO QD 11/10/2013 08/09/2014 Inactive cefdinir 300 mg capsule RxNorm: 176172 2 Capsule(s) PO QD 10/09/2013 10/15/2013 Inactive Actos 15 mg tablet RxNorm: 595257 1 Tablet(s) PO QAM 10/09/201301/06 Inactive doxycycline hyclate 100 mg capsule RxNorm: 5193574 1 Capsule(s) PO Q12H 09/18/2013 09/27/2013 Inactive omeprazole 20 mg capsule,delayed release RxNorm: 324664 2 Capsule(s) PO QD TAKE 2 CAPSULES BY MOUTH DAILY 09/03/2013 03/01/2014 Inactive Generi c For:*PRILOSEC [address] Celexa 40 mg tablet RxNorm: 907462 1 Tablet(s) PO QD re places lexapro. Generic OKAY 09/03/2013 01/13/2014 Inactive Symbicort 160 mcg-4.5 mcg/actuation HFA aerosol inhaler RxNo rm: 9607439 2 Puff(s) INH BID 08/13/2013 03/23/2014 Inactive metformin 1,000 mg tablet RxNorm: 056782 1 Tablet(s) PO BID 013 08/12/2013 Inactive TAKE ONE TABLET BY MOUTH TWI CE DAILY;Generic For:GLUCOPHAGE 1,000 MG TABLET 08/27/12 Thank you Actos 15 mg tablet RxNorm: 320441 1 Tablet(s) PO QAM 06/23/201310/09 Inactive lisinopril 20 mg tablet RxNorm: 118225 1 Tablet(s) PO QD 06/23/2013 0 12/08/2013 Inactive TAKE ONE TABLET BY MOUTH EVERY DAY;Gener ic For:*PRINIVIL 20 MG TABLET albuterol sulfate 2.5 mg/3 mL (0.083 %) solution for n ebulization RxNorm: 083790 Solution for Nebulization INH USE 1 VIAL IN NEBULIZER EVERY FOUR HOURS NEEDED FOR WHEEZING OR SHORTNESS OF BREATH 06/16/2013 03/01/2014 Inactive Generic For:*PROVENTIL 0.83 MG/ML SOLUTN 06/13/2013 2:04:46 PM prednisone 10 mg tablet RxNorm: 288030 1 Tablet(s) PO BID 04/09/2013 04/13/2013 Inactive AndroGel 1.25 gram/actuation (1%) Transdermal Gel Pump RxNorm: 2 04445 TD 04/09/2013 08/09/2014 Inactive APPLY 4 PUMPS OF GEL AT BEDTIME DIRECTED;WC (Appended: Controlled substance eRx refill - RxReferenceNumber: [id number]) azithromycin 250 mg tablet RxNorm: 209585 2 Tablet(s) PO QD 013 04/16/2013 Inactive Amaryl 2 mg tablet RxNorm: 383058 1 Tablet(s) PO BID N eeds appt in 1 month (around March 21) 02/18/2013 08/12/2013 Inactive Amaryl 2 mg tablet RxNorm: 706755 1 Tablet(s) PO BID 02/18/201302/17 Inactive metformin 1,000 mg tablet RxNorm: 513518 1 Tablet(s) PO BID 013 07/27/2013 Inactive TAKE ONE TABLET BY MOUTH TWI CE DAILY;Generic For:GLUCOPHAGE 1,000 MG TABLET 08/27/12 Thank you Actos 15 mg tablet RxNorm: 407846 1 Tablet(s) PO QAM 02/04/201306/03 Inactive albuterol sulfate 2.5 mg/3 mL (0.083 %) Neb Solution RxNorm: 830130 1 Unit Dose INH Q4H prn wheezing or shortness of breath 01/30/2013 06/15/2013 Inac tive Medrol (Gui) 4 mg tablets in a dose pack RxNorm: 084041 Tablet(s) PO as directed 01/20/2013 07/15/2013 Inactive cefdinir 300 mg capsule RxNorm: 078647 1 Capsule(s) PO BID anti biotic 01/20/2013 01/29/2013 Inactive lisinopril 20 mg tablet RxNorm: 015983 Tablet(s) PO 01/13/20132012 Inactive TAKE ONE TABLET BY MOUTH EVERY DAY;Gener ic For:*PRINIVIL 20 MG TABLET citalopram 40 mg tablet RxNorm: 410457 Tablet(s) PO 01/13/20132013 Inactive TAKE ONE (1) TABLET BY MOUTH DAILY;Gener ic For:CELEXA 40 MG TABLET omeprazole 20 mg capsule,delayed release RxNorm: 503374 Capsule(s) PO TAKE 2 CAPSULES BY MOUTH DAILY 11/15/2012 09/03/2013 Inactive Generic For:*PRILOSEC [address] amoxicillin 875 mg tablet RxNorm: 793858 1 Tablet(s) PO BID 013 10/28/2012 Inactive Actos 30 mg tablet RxNorm: 838087 1 Tablet(s) PO QD 09/23/20122011 Inactive Actos 15 mg tablet RxNorm: 943500 1 Tablet(s) PO QAM 09/23/201209/22 Inactive Actos 15 mg tablet RxNorm: 041821 1 Tablet(s) PO QAM 09/23/201202/04 Inactive prednisone 20 mg tablet RxNorm: 726849 1 Tablet(s) PO BID 08/28/2012 09/03/2012 Inactive doxycycline hyclate 100 mg tablet RxNorm: 8134383 1 Tablet(s) PO BI D 08/28/2012 09/06/2012 Inactive metformin 1,000 mg tablet RxNorm: 692214 Tablet(s) PO 08/27/201201/22 Inactive TAKE ONE TABLET BY MOUTH TWICE DAILY;Gen joshua For:GLUCOPHAGE 1,000 MG TABLET 08/27/12 Thank you citalopram 40 mg tablet RxNorm: 991886 Tablet(s) PO 07/30/20122012 Inactive TAKE ONE (1) TABLET BY MOUTH DAILY;Gener ic For:CELEXA 40 MG TABLET lisinopril 20 mg tablet RxNorm: 524960 Tablet(s) PO 07/30/20122012 Inactive TAKE ONE TABLET BY MOUTH EVERY DAY;Gener ic For:*PRINIVIL 20 MG TABLET AndroGel 1.25 gram/actuation (1%) Transdermal Gel Pump RxNor m: [id number] Gel in Metered-Dose Pump TD 07/09/2012 04/08/2013 Inactive APPLY 4 PUM PS OF GEL AT BEDTIME DIRECTED;WC (Appended: Controlled substance eRx refill - RxReferenceNumber: [id number]) citalopram 40 mg tablet RxNorm: 277059 Tablet(s) PO 07/01/20122011 Inactive TAKE ONE (1) TABLET BY MOUTH DAILY;Gener ic For:CELEXA 40 MG TABLET metformin 1,000 mg tablet RxNorm: 105528 1 Tablet(s) PO BID 012 08/25/2012 Inactive TAKE 1 TABLET BY MOUTH TWICE DAILY;Generic For:GLUCOPHAGE 1,000 MG TABLET meclizine 25 mg Tab RxNorm: 547521 1 Tablet(s) PO QID prn dizziness 05/09/2012 05/18/2012 Inactive lisinopril 20 mg tablet RxNorm: 261353 Tablet(s) PO QD 04/22/2012 Inactive TAKE ONE (1) TABLET BY MOUTH DAILY;Gener ic For:*PRINIVIL 20 MG TABLET metformin 1,000 mg tablet RxNorm: 062123 Tablet(s) PO 03/19/201212/2011 Inactive TAKE 1 TABLET BY MOUTH TWICE DAILY;Gener ic For:GLUCOPHAGE 1,000 MG TABLET cefdinir 300 mg Cap RxNorm: 782197 1 Capsule(s) PO BID 11/28/2011 Inactive cefdinir 300 mg Cap RxNorm: 747520 1 Capsule(s) PO BID 11/01/2011 Inactive citalopram 40 mg tablet RxNorm: 328199 Tablet(s) PO 10/30/20112011 Inactive TAKE ONE (1) TABLET BY MOUTH DAILY;Gener ic For:CELEXA 40 MG TABLET cefdinir 300 mg Cap RxNorm: 155216 1 Capsule(s) PO BID 10/02/2011 Inactive metformin 1,000 mg Tab RxNorm: 233354 1 Tablet(s) PO BID 09/28/2011 0 01/25/2012 Inactive citalopram 40 mg Tab RxNorm: 547725 1 Tablet(s) PO QD 09/28/201111/2011 Inactive omeprazole 20 mg capsule,delayed release RxNorm: 795693 2 Capsu le(s) PO QD 09/28/2011 03/25/2012 Inactive lisinopril 20 mg Tab RxNorm: 164287 Tablet(s) PO 08/21/2011 04/21/2012 Inactive TAKE ONE (1) TABLET BY MOUTH DAILY;Generic For:*PRINIVIL 20 MG TABLET AndroGel 1.25 gram/actuation (1%) Transdermal Gel Pump RxNor m: 0900150 Gel in Metered-dose Pump TD 08/21/2011 07/09/2012 Inactive APPLY 4 PUM PS OF GEL AT BEDTIME DIRECTED (Appended: Controlled substance eRx refill - RxReferenceNumber: [id number]) Lantus Solostar 100 unit/mL (3 mL) Sub-Q Insulin Pen RxNorm: 810519 30 Unit(s) SQ QD 06/20/2011 05/08/2012 Inactive Lantus Solostar 100 unit/mL (3 mL) Sub-Q Insulin Pen RxNorm: 028150 30 Unit(s) SQ QD 06/19/2011 06/19/2011 Inactive metformin 1,000 mg Tab RxNorm: 822999 1 Tablet(s) PO BID 05/12/2011 1 11/09/2010 Inactive citalopram 40 mg Tab RxNorm: 691127 1 Tablet(s) PO QD 03/06/201105/2011 Inactive metformin 1,000 mg Tab RxNorm: 479501 1 Tablet(s) PO BID 12/27/2010 0 04/25/2011 Inactive lisinopril 20 mg Tab RxNorm: 248681 Tablet(s) PO TAKE 1 TABLET BY MOUTH EVERY DAY;Generic For:*PRINIVIL 20 MG TABLET 12/26/2010 08/20/2011 Inactive Ceftin 500 mg Tab RxNorm: 380369 1 Tablet(s) PO BID 12/19/20102010 Inactive omeprazole 20 mg Cap, Delayed Release RxNorm: 923494 2 Capsule( s) PO QD 09/13/2010 03/11/2011 Inactive Byetta 10 mcg/0.04 mL per dose Sub-Q Pen Injector RxNorm: 84 7913 1 Unit Dose SQ BID 09/07/2010 10/06/2010 Inactive Celexa 40 mg tablet RxNorm: 797644 1 Tablet(s) PO QD re places lexapro. Generic OKAY 08/09/2010 02/04/2011 Inactive Actos 30 mg Tab RxNorm: 787817 1 Tablet(s) PO QD 08/09/2010 04/02/2011 Inactive lisinopril 20 mg Tab RxNorm: 292532 1 Tablet(s) PO QD 08/09/201011/22 Inactive metformin 1,000 mg Tab RxNorm: 344548 1 Tablet(s) PO BID 08/09/2010 0 12/06/2010 Inactive Metformin 1,000 mg Tab RxNorm: 197023 1 Tablet(s) PO BID 04/26/2010 0 04/25/2010 Inactive metformin 1,000 mg Tab RxNorm: 076774 1 Tablet(s) PO BID 04/26/2010 1 Inactive Lomotil 2.5 mg-0.025 mg Tab RxNorm: 5939835 1 Tablet(s) PO TID 1-2 TABS THREE TIMES DAILY 04/05/2010 04/07/2010 Inactive Mupirocin 2 % Topical Cream RxNorm: 147007 TOP BID 04/05/201003/25 Inactive lisinopril 20 mg Tab RxNorm: 678565 1 Tablet(s) PO QD 03/29/201010/2009 Inactive Actos 30 mg Tab RxNorm: 646759 1 Tablet(s) PO QD 03/29/2010 07/26/2010 Inactive Lisinopril 20 mg Tab RxNorm: 813312 1 Tablet(s) PO QD 02/27/201001/2010 Inactive Actos 30 mg Tab RxNorm: 226227 1 Tablet(s) PO QD 02/14/2010 03/28/2010 Inactive Celexa 40 mg Tab RxNorm: 579763 1 Tablet(s) PO QD replaces lexapro 01/13/2010 07/11/2010 Inactive Cyclobenzaprine 10 mg Tab RxNorm: 811936 1 Tablet(s) PO TID prn spasm 12/23/2009 01/21/2010 Inactive Cyclobenzaprine 10 mg Tab RxNorm: 117745 1 Tablet(s) PO TID 010 12/22/2009 Inactive Hydrocodone-Acetaminophen 7.5 mg-750 mg Tab RxNorm: 374828 1 Ta blet(s) PO Q4-6H 12/23/2009 12/22/2009 Inactive aspirin 81 mg tablet RxNorm: 851297 1 Tablet(s) PO QD No Start Date Active isosorbide mononitrate ER 60 mg tablet,extended release 24 h r RxNorm: 045805 1 Tablet(s) PO QD No Start Date Active amlodipine 5 mg tablet RxNorm: 511362 1 Tablet(s) PO QD No Start Date Active Vitamin D3 1,000 unit tablet RxNorm: 307069 3 Tablet(s) PO QD No St art Date 10/26/2014 Inactive Lexapro 20 mg Tab RxNorm: 641515 1 Tablet(s) PO QD No Start Date 12/24 Inactive loperamide 2 mg tablet RxNorm: 217428 Tablet(s) PO PRN No Start Date 06/07/2016 Inactive Levemir FlexTouch U-100 Insulin 100 unit/mL (3 mL) sub cutaneous pen RxNorm: 388764 22 Unit(s) SQ QD No Start Date 12/21/2019 Inactive Janumet 50 mg-1,000 mg Tab RxNorm: 239189 1 Tablet(s) PO BID No Sta rt Date 01/12/2010 Inactive Levemir U-100 Insulin 100 unit/mL subcutaneous solution RxNo rm: 514770 10 Unit(s) SQ QHS No Start Date 12/08/2018 Inactive Medrol (Gui) 4 mg tablets in a dose pack RxNorm: 405715 Tablet(s) PO Use as directed No Start Date 12/22/2018 Inactive aspirin 325 mg tablet RxNorm: 535013 1 Tablet(s) PO QD No Start Date 08/09/2016 Inactive Efudex 5 % Topical Cream RxNorm: 694159 Application TOP QD prn fto skin lesion No Start Date 08/12/2013 Inactive nitroglycerin 0.4 mg sublingual tablet RxNorm: 966650 Tablet(s) SL as needed No Start Date 12/18/2018 Inactive levofloxacin 500 mg tablet RxNorm: 277514 1 Tablet(s) PO QD No Star t Date 08/06/2018 Inactive ferrous sulfate 325 mg (65 mg iron) tablet RxNorm: 208081 1 Tab let(s) PO QHS No Start Date 04/16/2017 Inactive fluorouracil 5 % topical cream RxNorm: 055617 1 TOP No Start James e 08/06/2018 Inactive Vitamin D3 1,000 unit capsule RxNorm: 040086 1 Capsule(s) PO QD No Start Date 02/03/2018 Inactive Hydrocodone-Acetaminophen 7.5 mg-750 mg Tab RxNorm: 416066 1 Ta blet(s) PO PRN No Start Date 08/09/2014 Inactive pantoprazole 40 mg tablet,delayed release RxNorm: 303063 1 Tabl et(s) PO QD No Start Date 01/22/2018 Inactive omeprazole 20 mg Cap, Delayed Release RxNorm: 177244 2 Capsule( s) PO QD No Start Date 09/12/2010 Inactive DuoNeb 0.5 mg-3 mg(2.5 mg base)/3 mL solution for nebulizati on RxNorm: 7253222 INH Q4H as needed No Start Date 10/22/2018 Inactive Lyrica 75 mg capsule RxNorm: 804731 2 Capsule(s) PO QHS No Start Da te 03/09/2019 Inactive isosorbide mononitrate ER 30 mg tablet,extended release 24 h r RxNorm: 468188 1 Tablet(s) PO QD No Start Date 12/08/2018 Inactive Tradjenta 5 mg tablet RxNorm: 3283686 1 Tablet(s) PO QD No Start Da te 08/09/2016 Inactive Tudorza Pressair 400 mcg/actuation breath activated RxNorm: 8461696 1 Puff(s) INH BID No Start Date 06/17/2017 Inactive Lantus Solostar 100 unit/mL (3 mL) Sub-Q Insulin Pen RxNorm: 751610 30 Unit(s) SQ QD No Start Date 06/18/2011 Inactive Requip 4 mg tablet RxNorm: 008133 1 Tablet(s) PO BID No Start Date Inactive Symbicort 160 mcg-4.5 mcg/actuation HFA aerosol inhaler RxNo rm: 0668330 2 Puff(s) INH BID No Start Date 07/11/2018 Inactive atorvastatin 40 mg tablet RxNorm: 441778 1 Tablet(s) PO QD No Start Date 12/18/2018 Inactive tramadol 50 mg tablet RxNorm: 497682 1 Tablet(s) PO TID as needed for pain (take alone with two extra strength tylenol) No Start Date 01/16/2019 Inactive Symbicort 160 mcg-4.5 mcg/actuation HFA aerosol inhaler RxNo rm: 8035932 2 Puff(s) INH BID No Start Date 08/12/2013 Inactive Vitamin D3 5,000 unit tablet RxNorm: 107500 1 Tablet(s) PO QD No St art Date 05/08/2019 Inactive albuterol sulfate 2.5 mg/3 mL (0.083 %) Neb Solution RxNorm: 423539 1 Unit Dose INH Q4H prn wheezing or shortness of breath No Start Date 01/29/2013 Inac tive Ranexa 500 mg tablet,extended release RxNorm: 114473 1 Tablet(s ) PO BID No Start Date 02/03/2018 Inactive Advair Diskus 500 mcg-50 mcg/dose powder for inhalation RxNo rm: 6687145 1 Puff(s) INH BID No Start Date 08/09/2016 Inactive clopidogrel 75 mg tablet RxNorm: 195366 1 Tablet(s) PO QD No Start Date 05/01/2018 Inactive metformin 1,000 mg Tab RxNorm: 054219 1 Tablet(s) PO BID No Start D ate 08/12/2013 Inactive Silenor 3 mg tablet RxNorm: 324998 1 Tablet(s) PO QHS No Start Date 0 04/04/2017 Inactive Medrol (Gui) 4 mg tablets in a dose pack RxNorm: 908585 Tablet(s) PO as directed No Start Date 01/19/2013 Inactive Requip 4 mg tablet RxNorm: 553996 1 Tablet(s) PO BID No Start Date Inactive clopidogrel 75 mg tablet RxNorm: 106923 1 Tablet(s) PO QD No Start Date 02/03/2018 Inactive Tradjenta 5 mg tablet RxNorm: 8750543 1 Tablet(s) PO QD No Start Da te 02/03/2018 Inactive ProAir HFA 90 mcg/Actuation Aerosol Inhaler RxNorm: 297506 2 Pu ff(s) INH PRN No Start Date 07/09/2012 Inactive Tessalon Perles 100 mg capsule RxNorm: 231330 1 Capsule (s) PO TID as needed for cough No Start Date 08/30/2014 Inactive ferrous sulfate 325 mg (65 mg iron) tablet RxNorm: 395032 1 Tab let(s) PO QD No Start Date 05/08/2019 Inactive pioglitazone 15 mg tablet RxNorm: 459453 1 Tablet(s) PO QD No Start Date 09/20/2014 Inactive Lexapro Oral RxNorm: Oral No Start Date 12/13/2009 Inactive Breo Ellipta 100 mcg-25 mcg/dose powder for inhalation RxNor m: 5244546 1 Puff(s) INH BID No Start Date 05/31/2015 Inactive Tylenol Extra Strength 500 mg tablet RxNorm: 257046 2 T ablet(s) PO QHS along with ropironole No Start Date 12/18/2018 Inactive tramadol 50 mg tablet RxNorm: 048770 1 Tablet(s) PO QID as need ed for pain No Start Date 12/24/2018 Inactive cyclobenzaprine 10 mg Tab RxNorm: 636177 Oral No Start Date 12/22 Inactive Levemir FlexTouch 100 unit/mL (3 mL) subcutaneous insulin pe n RxNorm: 691061 10 Unit(s) SQ QD No Start Date 03/08/2016 Inactive amlodipine 5 mg tablet RxNorm: 542297 1 Tablet(s) PO QD No Start Da te 08/09/2016 Inactive Novolog 100 unit/mL subcutaneous solution RxNorm: 929246 10 Uni t(s) SQ AC No Start Date 08/12/2017 Inactive Levemir FlexTouch 100 unit/mL (3 mL) subcutaneous insulin pe n RxNorm: 533400 25 Unit(s) SQ QPM No Start Date 08/06/2018 Inactive Farxiga 5 mg tablet RxNorm: 9165043 1 Tablet(s) PO QD No Start Date 0 10/05/2014 Inactive DuoNeb 0.5 mg-3 mg(2.5 mg base)/3 mL solution for nebulizati on RxNorm: 1744455 inhalation No Start Date 09/23/2014 Inactive Doxycycline 100 mg Cap RxNorm: 918888 1 Capsule(s) PO BID No Start Date 12/18/2010 Inactive Vitamin B12 1000mcg Tablet RxNorm: 1 Tablet(s) PO QD No Start Date 02/03/2018 Inactive Hydrocodone-Acetaminophen 7.5 mg-750 mg Tab RxNorm: 638160 1 Ta blet(s) PO Q6-8H No Start Date 12/22/2009 Inactive Xigduo XR 5 mg-1,000 mg tablet,extended release RxNorm: 1593 833 1 Tablet(s) PO QD No Start Date 05/31/2015 Inactive cyanocobalamin (vit B-12) 1,000 mcg/mL injection solution Rx Norm: 341857 1 injection weekly for 4 weeks 1 Milliliter(s) Inj No Start Date 05/08/2019 Inactive AndroGel 1.25 g/Actuation (1%) Transdermal Gel Pump RxNorm: 7731180 TD Apply 4pumps daily No Start Date 08/21/2011 Inactive Actoplus MET 15 mg-850 mg Tab RxNorm: 897975 1 Tablet(s) PO BID No Start Date 12/18/2010 Inactive Amaryl 2 mg tablet RxNorm: 707543 1 Tablet(s) PO BID No Start Date Inactive Levemir FlexTouch 100 unit/mL (3 mL) subcutaneous insulin pe n RxNorm: 964780 20 Unit(s) SQ QD No Start Date 06/12/2016 Inactive Symbicort 160 mcg-4.5 mcg/actuation HFA aerosol inhaler RxNo rm: 9199137 2 Puff(s) INH BID No Start Date 02/03/2018 Inactive Symbicort 160 mcg-4.5 mcg/Actuation Inhalation HFA Aer osol Inhaler RxNorm: 2342335 2 INH BID No Start Date 12/18/2010 Inactive Farxiga 5 mg tablet RxNorm: 4237320 1 Tablet(s) PO QD No Start Date 0 03/01/2015 Inactive magnesium oxide 400 mg (241.3 mg magnesium) tablet RxNorm: 1 78978 1 Tablet(s) PO QHS No Start Date 05/08/2019 Inactive Tradjenta 5 mg tablet RxNorm: 6316011 2 Tablet(s) PO QD No Start Da te 07/21/2015 Inactive Levemir FlexTouch U-100 Insulin 100 unit/mL (3 mL) sub cutaneous pen RxNorm: 968143 40 Unit(s) SQ QD No Start Date 08/06/2018 Inactive Sinemet CR 50 mg-200 mg tablet,extended release RxNorm: 8343 41 1 Tablet(s) PO QHS No Start Date 09/24/2017 Inactive metoprolol tartrate 25 mg tablet RxNorm: 007594 1/2 Tablet(s) P O BID No Start Date 02/03/2018 Inactive Requip 4 mg tablet RxNorm: 231449 1 Tablet(s) PO QHS No Start Date Inactive Ventolin HFA 90 mcg/actuation aerosol inhaler RxNorm: 175272 2 Puff(s) INH Q4H as needed No Start Date 04/22/2018 Inactive B12 5,000 mcg-100 mcg sublingual lozenge RxNorm: 896158 IM as d irected No Start Date 05/08/2019 Inactive ropinirole 1 mg tablet RxNorm: 866451 1 Tablet(s) PO QHS No Start D ate 08/06/2018 Inactive Percocet 5 mg-325 mg tablet RxNorm: 9536543 1 Tablet(s) PO Q4H as needed for pain (Dr Rizzo) No Start Date 10/22/2018 Inactive hydrocodone 5 mg-acetaminophen 325 mg tablet RxNorm: 673608 1 Tablet(s) PO TID as needed for pain for severe pain No Start Date 04/16/2014 Inactive scopolamine 1.5 mg 72 hr Transderm Patch RxNorm: 898501 Application TD Q72H for dizziness No Start Date 08/12/2013 Inactive ipratropium-albuterol 0.5 mg-3 mg(2.5 mg base)/3 mL ne bulization soln RxNorm: 5512709 1 Unit Dose INH Q4H No Start Date 01/16/2019 Inactive Medication Administered No Medication Administered data Immunizations Vaccine Codes Date Status Influenza CVX: 135 08/07/2019 Complete Pneumococcal CVX: 33 07/24/2017 Complete Influenza CVX: 135 06/13/2016 Complete Pneumococcal CVX: 133 06/13/2016 Complete Influenza CVX: 141 07/10/2012 Pneumovax Unknown 07/10/2012 Results Observation Observation Code Item Item Code Result Date S vic Location COMPLETE BLOOD COUNT [id number] WBC 5.5 10e9/L 06/17/20 19 Unknown COMPLETE BLOOD COUNT [id number] RBC 3.92 10e12/L 2018 Unknown COMPLETE BLOOD COUNT [id number] HEMOGLOBIN 10.9 g/dL 06/17/20 19 Unknown COMPLETE BLOOD COUNT 6416965 HEMATOCRIT 34.8 % 06/17/20 19 Unknown COMPLETE BLOOD COUNT 5746985 MCV 88.8 fL 9 Unknown COMPLETE BLOOD COUNT 1575513 MCH 27.8 pg 9 Unknown COMPLETE BLOOD COUNT 9469419 MCHC 31.3 g/dL 9 Unknown COMPLETE BLOOD COUNT 2781139 PLATELET COUNT 239 10e9/L Unknown COMPLETE BLOOD COUNT 5145238 Mean Plt Volume 10.0 fL Unknown COMPLETE BLOOD COUNT 7771834 Neut Auto 68.0 % 9 Unknown COMPLETE BLOOD COUNT 8052095 Lymph Auto 14.8 % 06/17/20 19 Unknown COMPLETE BLOOD COUNT 1561223 Weber Auto 13.1 % 9 Unknown COMPLETE BLOOD COUNT 5966733 RDW 14.7 % 9 Unknown COMPLETE BLOOD COUNT 0018248 Eos Auto 3.6 % 9 Unknown COMPLETE BLOOD COUNT 7916508 Baso Auto 0.5 % 9 Unknown COMPLETE BLOOD COUNT 6160156 Neutrophil Abs 3.74 10e9/L Unknown COMPLETE BLOOD COUNT 9721392 Lymphocyte Abs 0.81 10e9/L Unknown COMPLETE BLOOD COUNT 8686201 Monocyte Abs 0.72 10e9/L 05/26 Unknown COMPLETE BLOOD COUNT 9769956 Eosinophil Abs 0.20 10e9/L Unknown COMPLETE BLOOD COUNT 2935470 RDW-SD 46.4 fL 9 Unknown COMPLETE BLOOD COUNT 5636878 Basophil Abs 0.03 10e9/L 05/26 Unknown IRON 87590 Iron 36 ug/dL 06/17/2019 Unknown VITAMIN B 12 29401 VITAMIN B12 540 pg/mL 06/17/2019 Unkn own GFR CALC 7648829 GFR Non Afr Amr 59 mL/min 06/17/2019 Unk nown GFR CALC 4477499 GFR Afr Amr >60 mL/min 06/17/2019 Unknow n ERYTHROCYTE SEDIMENTATION RATE 63484 Sed Rate 34 mm/hr 06/17/2019 Unknown THYROID STIMULATING HORMONE 97389 TSH 2.217 uIU/mL 06/17/2019 Unknown COMPREHENSIVE METABOLIC 49367 AST 12 U/L 2018 Unknown COMPREHENSIVE METABOLIC 97003 ALT 11 U/L 2018 Unknown COMPREHENSIVE METABOLIC 43274 BUN 17 mg/dL 2018 Unknown COMPREHENSIVE METABOLIC 86957 ALBUMIN 3.9 g/dL 2018 Unknown COMPREHENSIVE METABOLIC 07102 CHLORIDE 103 mmol/L 06/17 Unknown COMPREHENSIVE METABOLIC 11988 Bili Total 0.4 mg/dL 06/17 Unknown COMPREHENSIVE METABOLIC 93122 ALK PHOS 51 U/L 2018 Unknown COMPREHENSIVE METABOLIC 78428 SODIUM 140 mmol/L 06/17 Unknown COMPREHENSIVE METABOLIC 65263 CREATININE 1.20 mg/dL 05/26 Unknown COMPREHENSIVE METABOLIC 60299 CALCIUM 8.9 mg/dL 2018 Unknown COMPREHENSIVE METABOLIC 38717 POTASSIUM 4.5 mmol/L 06/17 Unknown COMPREHENSIVE METABOLIC 48076 Total Protein 6.1 g/dL Unknown COMPREHENSIVE METABOLIC 09194 Glucose 108 mg/dL 2018 Unknown COMPREHENSIVE METABOLIC 01132 Bicarbonate 27 mmol/L 05/26 Unknown COMPREHENSIVE METABOLIC 31445 AGAP 10 mmol/L 2018 Unknown FERRITIN 94201 FERRITIN 35.5 ng/mL 05/08/2019 Unknown VITAMIN D TOTAL (25 HYDROXY) 81772 Vitamin D 25 OH 26.0 ng/mL 05/08/2019 Unknown GLYCOSYLATED HEMOGLOBIN TEST 77777 Hgb A1c 59556-2 8.2 % 0 05/08/2019 Unknown MEAN GLUC 3824804 Calc Mean Gluc 189 mg/dL 05/08/2019 Unkn own GFR CALC 3970631 GFR Non Afr Amr >60 mL/min 05/08/2019 Un known GFR CALC 5234204 GFR Afr Amr >60 mL/min 05/08/2019 Unknow n VITAMIN B 12 29957 VITAMIN B12 197 pg/mL 05/08/2019 Unkn own IRON 39783 Iron 34 ug/dL 05/08/2019 Unknown COMPLETE BLOOD COUNT 0215297 WBC 6.9 10e9/L 05/08/20 19 Unknown COMPLETE BLOOD COUNT 1430981 RBC 3.95 10e12/L 2018 Unknown COMPLETE BLOOD COUNT 4127960 HEMOGLOBIN 11.1 g/dL 05/08/20 19 Unknown COMPLETE BLOOD COUNT 3832262 HEMATOCRIT 34.9 % 05/08/20 19 Unknown COMPLETE BLOOD COUNT 3361777 MCV 88.4 fL 9 Unknown COMPLETE BLOOD COUNT 4774836 MCH 28.1 pg 9 Unknown COMPLETE BLOOD COUNT 0729060 MCHC 31.8 g/dL 9 Unknown COMPLETE BLOOD COUNT 8180869 PLATELET COUNT 217 10e9/L Unknown COMPLETE BLOOD COUNT 3919617 Mean Plt Volume 9.6 fL Unknown COMPLETE BLOOD COUNT 3853624 Neut Auto 77.6 % 9 Unknown COMPLETE BLOOD COUNT 5506537 Lymph Auto 10.7 % 05/08/20 19 Unknown COMPLETE BLOOD COUNT 1064046 Weber Auto 10.4 % 9 Unknown COMPLETE BLOOD COUNT 9603872 RDW 14.7 % 9 Unknown COMPLETE BLOOD COUNT 1165414 Eos Auto 1.2 % 9 Unknown COMPLETE BLOOD COUNT 2820390 Baso Auto 0.1 % 9 Unknown COMPLETE BLOOD COUNT 6663711 Neutrophil Abs 5.35 10e9/L Unknown COMPLETE BLOOD COUNT 9609926 Lymphocyte Abs 0.74 10e9/L Unknown COMPLETE BLOOD COUNT 9797942 Monocyte Abs 0.72 10e9/L 04/24 Unknown COMPLETE BLOOD COUNT 5204448 Eosinophil Abs 0.08 10e9/L Unknown COMPLETE BLOOD COUNT 7376533 RDW-SD 46.6 fL 9 Unknown COMPLETE BLOOD COUNT 0893494 Basophil Abs 0.01 10e9/L 04/24 Unknown COMPREHENSIVE METABOLIC 33666 AST 13 U/L 2018 Unknown COMPREHENSIVE METABOLIC 63587 ALT 9 U/L 2018 Unknown COMPREHENSIVE METABOLIC 63587 BUN 18 mg/dL 2018 Unknown COMPREHENSIVE METABOLIC 71204 ALBUMIN 4.3 g/dL 2018 Unknown COMPREHENSIVE METABOLIC 09823 CHLORIDE 99 mmol/L 2018 Unknown COMPREHENSIVE METABOLIC 64101 Bili Total 0.4 mg/dL 05/08 Unknown COMPREHENSIVE METABOLIC 03667 ALK PHOS 48 U/L 2018 Unknown COMPREHENSIVE METABOLIC 29711 SODIUM 137 mmol/L 05/08 Unknown COMPREHENSIVE METABOLIC 95340 CREATININE 0.79 mg/dL 04/24 Unknown COMPREHENSIVE METABOLIC 96432 CALCIUM 9.5 mg/dL 2018 Unknown COMPREHENSIVE METABOLIC 95541 POTASSIUM 4.0 mmol/L 05/08 Unknown COMPREHENSIVE METABOLIC 72098 Total Protein 6.3 g/dL Unknown COMPREHENSIVE METABOLIC 86402 Glucose 232 mg/dL 2018 Unknown COMPREHENSIVE METABOLIC 56077 Bicarbonate 27 mmol/L 04/24 Unknown COMPREHENSIVE METABOLIC 94913 AGAP 11 mmol/L 2018 Unknown GLYCOSYLATED HEMOGLOBIN TEST 70677 Hgb A1c 46093-6 8.9 % 0 12/10/2018 Unknown MEAN GLUC 5935039 Calc Mean Gluc 209 mg/dL 12/10/2018 Unkn own LIPID GROUP 64162 Cholesterol 145 mg/dL 12/09/2018 Unkno wn LIPID GROUP 56722 Triglyceride 235 mg/dL 12/09/2018 Unkn own LIPID GROUP 76497 HDL CHOLESTEROL 40 mg/dL 12/09/2018 U nknown LIPID GROUP 52529 Chol/HDL Ratio 3.62 ratio 12/09/2018 U nknown LIPID GROUP 06148 NON-HDL Chol 105 mg/dL 12/09/2018 Unkn own LIPID GROUP 93690 LDL Cholesterol 58 mg/dL 12/09/2018 U nknown THYROID STIMULATING HORMONE 85911 TSH 1.071 uIU/mL 12/09/2018 Unknown GFR CALC 8731083 GFR Non Afr Amr >60 mL/min 12/09/2018 Un known GFR CALC 1658651 GFR Afr Amr >60 mL/min 12/09/2018 Unknow n COMPLETE BLOOD COUNT 1278992 WBC 7.6 10e9/L 12/10/19 19 Unknown COMPLETE BLOOD COUNT 7280550 RBC 3.97 10e12/L 2018 Unknown COMPLETE BLOOD COUNT 2977001 HEMOGLOBIN 11.4 g/dL 12/10/19 19 Unknown COMPLETE BLOOD COUNT 9226546 HEMATOCRIT 35.8 % 12/10/19 19 Unknown COMPLETE BLOOD COUNT 2554609 MCV 90.2 fL 9 Unknown COMPLETE BLOOD COUNT 2841836 MCH 28.7 pg 9 Unknown COMPLETE BLOOD COUNT 6464278 MCHC 31.8 g/dL 9 Unknown COMPLETE BLOOD COUNT 0038330 PLATELET COUNT 200 10e9/L Unknown COMPLETE BLOOD COUNT 5652313 Mean Plt Volume 10.1 fL Unknown COMPLETE BLOOD COUNT 7096982 Neut Auto 79.0 % 9 Unknown COMPLETE BLOOD COUNT 4939261 Lymph Auto 8.3 % 12/10/19 19 Unknown COMPLETE BLOOD COUNT 2672992 Weber Auto 10.8 % 9 Unknown COMPLETE BLOOD COUNT 0306661 Eos Auto 1.5 % 9 Unknown COMPLETE BLOOD COUNT 9238557 RDW 14.6 % 9 Unknown COMPLETE BLOOD COUNT 6845044 Baso Auto 0.4 % 9 Unknown COMPLETE BLOOD COUNT 3264888 Neutrophil Abs 6.00 10e9/L Unknown COMPLETE BLOOD COUNT 4469469 Lymphocyte Abs 0.63 10e9/L Unknown COMPLETE BLOOD COUNT 9682586 Monocyte Abs 0.82 10e9/L 11/22 Unknown COMPLETE BLOOD COUNT 0952981 Eosinophil Abs 0.11 10e9/L Unknown COMPLETE BLOOD COUNT 8253134 Basophil Abs 0.03 10e9/L 11/22 Unknown COMPLETE BLOOD COUNT 8686261 RDW-SD 46.9 fL 9 Unknown COMPREHENSIVE METABOLIC 74085 AST 11 U/L 2018 Unknown COMPREHENSIVE METABOLIC 68092 ALT 11 U/L 2018 Unknown COMPREHENSIVE METABOLIC 22829 BUN 21 mg/dL 2018 Unknown COMPREHENSIVE METABOLIC 85104 ALBUMIN 4.7 g/dL 2018 Unknown COMPREHENSIVE METABOLIC 79765 CHLORIDE 99 mmol/L 2018 Unknown COMPREHENSIVE METABOLIC 13587 Bili Total 0.4 mg/dL 12/09 Unknown COMPREHENSIVE METABOLIC 74743 ALK PHOS 73 U/L 2018 Unknown COMPREHENSIVE METABOLIC 50792 SODIUM 137 mmol/L 12/09 Unknown COMPREHENSIVE METABOLIC 28847 CREATININE 1.12 mg/dL 11/22 Unknown COMPREHENSIVE METABOLIC 05394 CALCIUM 9.4 mg/dL 2018 Unknown COMPREHENSIVE METABOLIC 41710 POTASSIUM 4.2 mmol/L 12/09 Unknown COMPREHENSIVE METABOLIC 51330 Total Protein 6.8 g/dL Unknown COMPREHENSIVE METABOLIC 48899 Glucose 194 mg/dL 2018 Unknown COMPREHENSIVE METABOLIC 40598 Bicarbonate 30 mmol/L 11/22 Unknown COMPREHENSIVE METABOLIC 81463 AGAP 8 mmol/L 2018 Unknown FREE T4 39875 T4 Free 0.86 ng/dL 12/09/2018 Unknown COMPLETE BLOOD COUNT 0396795 WBC 6.8 10e9/L 04/17/20 17 Unknown COMPLETE BLOOD COUNT 4162619 RBC 3.86 10e12/L 2016 Unknown COMPLETE BLOOD COUNT 7356544 HEMOGLOBIN 9.8 g/dL 04/17/20 17 Unknown COMPLETE BLOOD COUNT 3100862 HEMATOCRIT 31.1 % 04/17/20 17 Unknown COMPLETE BLOOD COUNT 3734913 MCV 80.6 fL 7 Unknown COMPLETE BLOOD COUNT 2197627 MCH 25.4 pg 7 Unknown COMPLETE BLOOD COUNT 9863251 MCHC 31.5 g/dL 7 Unknown COMPLETE BLOOD COUNT 9731750 PLATELET COUNT 247 10e9/L Unknown COMPLETE BLOOD COUNT 0718420 Mean Plt Volume 9.7 fL Unknown COMPLETE BLOOD COUNT 6432691 Neut Auto 74.1 % 7 Unknown COMPLETE BLOOD COUNT 1160177 Lymph Auto 12.0 % 04/17/20 17 Unknown COMPLETE BLOOD COUNT 4499134 Weber Auto 10.8 % 7 Unknown COMPLETE BLOOD COUNT 0933263 RDW 15.9 % 7 Unknown COMPLETE BLOOD COUNT 0244927 Eos Auto 2.5 % 7 Unknown COMPLETE BLOOD COUNT 3789033 Baso Auto 0.6 % 7 Unknown COMPLETE BLOOD COUNT 2898330 Neutrophil Abs 5.04 10e9/L Unknown COMPLETE BLOOD COUNT 6853137 Lymphocyte Abs 0.82 10e9/L Unknown COMPLETE BLOOD COUNT 4539072 Monocyte Abs 0.73 10e9/L 03/25 Unknown COMPLETE BLOOD COUNT 3647522 Eosinophil Abs 0.17 10e9/L Unknown COMPLETE BLOOD COUNT 8487788 Basophil Abs 0.04 10e9/L 03/25 Unknown COMPLETE BLOOD COUNT 0399119 RDW-SD 44.4 fL 7 Unknown MEAN GLUC 4308931 Calc Mean Gluc 223 mg/dL 04/17/2017 Unkn own GFR CALC 4085385 GFR Non Afr Amr >60 mL/min 04/17/2017 Un known GFR CALC 2019686 GFR Afr Amr >60 mL/min 04/17/2017 Unknow n GLYCOSYLATED HEMOGLOBIN TEST 67878 Hgb A1c 47848-7 9.4 % 0 04/17/2017 Unknown IRON 27556 Iron 37 ug/dL 04/17/2017 Unknown VITAMIN B 12 51982 VITAMIN B12 280 pg/mL 04/17/2017 Unkn own THYROID STIMULATING HORMONE 24776 TSH 2.481 uIU/mL 04/17/2017 Unknown COMPREHENSIVE METABOLIC 78432 AST 13 U/L 2016 Unknown COMPREHENSIVE METABOLIC 71058 ALT 12 U/L 2016 Unknown COMPREHENSIVE METABOLIC 65940 BUN 18 mg/dL 2016 Unknown COMPREHENSIVE METABOLIC 78850 ALBUMIN 4.7 g/dL 2016 Unknown COMPREHENSIVE METABOLIC 15663 CHLORIDE 103 mmol/L 04/17 Unknown COMPREHENSIVE METABOLIC 31610 Bili Total 0.4 mg/dL 04/17 Unknown COMPREHENSIVE METABOLIC 23092 ALK PHOS 49 U/L 2016 Unknown COMPREHENSIVE METABOLIC 53204 SODIUM 140 mmol/L 04/17 Unknown COMPREHENSIVE METABOLIC 90818 CREATININE 1.14 mg/dL 03/25 Unknown COMPREHENSIVE METABOLIC 51754 CALCIUM 9.4 mg/dL 2016 Unknown COMPREHENSIVE METABOLIC 31016 POTASSIUM 4.4 mmol/L 04/17 Unknown COMPREHENSIVE METABOLIC 77686 Total Protein 6.7 g/dL Unknown COMPREHENSIVE METABOLIC 20422 Glucose 266 mg/dL 2016 Unknown COMPREHENSIVE METABOLIC 83166 Bicarbonate 25 mmol/L 03/25 Unknown COMPREHENSIVE METABOLIC 15475 AGAP 12 mmol/L 2016 Unknown FERRITIN 33633 FERRITIN 10.0 ng/mL 04/17/2017 Unknown COMPLETE BLOOD COUNT 2470182 WBC 6.8 10e9/L 12/22/19 17 Unknown COMPLETE BLOOD COUNT 3900196 RBC 3.70 10e12/L 2016 Unknown COMPLETE BLOOD COUNT 5732230 HEMOGLOBIN 8.0 g/dL 12/22/19 17 Unknown COMPLETE BLOOD COUNT 3609422 HEMATOCRIT 26.7 % 12/22/19 17 Unknown COMPLETE BLOOD COUNT 5578743 MCV 72.2 fL 7 Unknown COMPLETE BLOOD COUNT 6678859 MCH 21.6 pg 7 Unknown COMPLETE BLOOD COUNT 2123363 MCHC 30.0 g/dL 7 Unknown COMPLETE BLOOD COUNT 1080372 PLATELET COUNT 290 10e9/L Unknown COMPLETE BLOOD COUNT 3014906 Mean Plt Volume 9.3 fL Unknown COMPLETE BLOOD COUNT 7526324 Neut Auto 80.2 % 7 Unknown COMPLETE BLOOD COUNT 6934902 Lymph Auto 9.8 % 12/22/19 17 Unknown COMPLETE BLOOD COUNT 3054929 Weber Auto 8.1 % 7 Unknown COMPLETE BLOOD COUNT 5413593 RDW 17.4 % 7 Unknown COMPLETE BLOOD COUNT 9894039 Eos Auto 1.5 % 7 Unknown COMPLETE BLOOD COUNT 3477139 Baso Auto 0.4 % 7 Unknown COMPLETE BLOOD COUNT 4746811 Neutrophil Abs 5.45 10e9/L Unknown COMPLETE BLOOD COUNT 2730287 Lymphocyte Abs 0.67 10e9/L Unknown COMPLETE BLOOD COUNT 1325982 Monocyte Abs 0.55 10e9/L 11/24 Unknown COMPLETE BLOOD COUNT 5450507 Eosinophil Abs 0.10 10e9/L Unknown COMPLETE BLOOD COUNT 2491892 Basophil Abs 0.03 10e9/L 11/24 Unknown COMPLETE BLOOD COUNT 8731022 RDW-SD 44.1 fL 7 Unknown COMPLETE BLOOD COUNT 5895733 WBC 7.6 10e9/L 12/13/19 17 Unknown COMPLETE BLOOD COUNT 0956020 RBC 3.71 10e12/L 2016 Unknown COMPLETE BLOOD COUNT 7344828 HEMOGLOBIN 8.0 g/dL 12/13/19 17 Unknown COMPLETE BLOOD COUNT 5402896 HEMATOCRIT 27.3 % 12/13/19 17 Unknown COMPLETE BLOOD COUNT 4852915 MCV 73.6 fL 7 Unknown COMPLETE BLOOD COUNT 3072511 MCH 21.6 pg 7 Unknown COMPLETE BLOOD COUNT 0065544 MCHC 29.3 g/dL 7 Unknown COMPLETE BLOOD COUNT 7692331 PLATELET COUNT 330 10e9/L Unknown COMPLETE BLOOD COUNT 7534447 Mean Plt Volume 9.7 fL Unknown COMPLETE BLOOD COUNT 2451639 Neut Auto 73.2 % 7 Unknown COMPLETE BLOOD COUNT 2138853 Lymph Auto 14.5 % 12/13/19 17 Unknown COMPLETE BLOOD COUNT 6642765 Weber Auto 10.5 % 7 Unknown COMPLETE BLOOD COUNT 6744870 RDW 17.3 % 7 Unknown COMPLETE BLOOD COUNT 9223524 Eos Auto 1.3 % 7 Unknown COMPLETE BLOOD COUNT 3236291 Baso Auto 0.5 % 7 Unknown COMPLETE BLOOD COUNT 6896243 Neutrophil Abs 5.56 10e9/L Unknown COMPLETE BLOOD COUNT 9285599 Lymphocyte Abs 1.10 10e9/L Unknown COMPLETE BLOOD COUNT 2095825 Monocyte Abs 0.80 10e9/L 11/23 Unknown COMPLETE BLOOD COUNT 5055108 Eosinophil Abs 0.10 10e9/L Unknown COMPLETE BLOOD COUNT 3924709 Basophil Abs 0.04 10e9/L 11/23 Unknown COMPLETE BLOOD COUNT 7439076 RDW-SD 45.2 fL 7 Unknown IRON 69526 Iron 69 ug/dL 03/09/2016 Unknown VITAMIN B 12 94455 VITAMIN B12 311 pg/mL 03/09/2016 Unkn own MEAN GLUC 1508890 Mean Glucose 260 mg/dL 03/07/2016 Unknow n GLYCOSYLATED HEMOGLOBIN TEST 48460 Hgb A1c 27368-9 10.7 % 0 03/07/2016 Unknown COMPREHENSIVE METABOLIC 13764 AST 14 U/L 2015 Unknown COMPREHENSIVE METABOLIC 59772 ALT 21 U/L 2015 Unknown COMPREHENSIVE METABOLIC 89627 BUN 27 mg/dL 2015 Unknown COMPREHENSIVE METABOLIC 45143 ALBUMIN 4.5 g/dL 2015 Unknown COMPREHENSIVE METABOLIC 17810 CHLORIDE 101 mmol/L 03/06 Unknown COMPREHENSIVE METABOLIC 34577 Bili Total 0.4 mg/dL 03/06 Unknown COMPREHENSIVE METABOLIC 24821 ALK PHOS 49 U/L 2015 Unknown COMPREHENSIVE METABOLIC 19375 SODIUM 136 mmol/L 03/06 Unknown COMPREHENSIVE METABOLIC 61300 CREATININE 1.16 mg/dL 02/22 Unknown COMPREHENSIVE METABOLIC 85514 CALCIUM 9.9 mg/dL 2015 Unknown COMPREHENSIVE METABOLIC 69200 POTASSIUM 4.5 mmol/L 03/06 Unknown COMPREHENSIVE METABOLIC 46521 Total Protein 6.7 g/dL Unknown COMPREHENSIVE METABOLIC 55848 Glucose 245 mg/dL 2015 Unknown COMPREHENSIVE METABOLIC 64620 Bicarbonate 24 mmol/L 02/22 Unknown COMPREHENSIVE METABOLIC 33713 AGAP 11 mmol/L 2015 Unknown THYROID STIMULATING HORMONE 54116 TSH 0.775 uIU/mL 03/06/2016 Unknown TESTOSTERONE TOTAL 99726 Testos Total 96 ng/dL 03/06/20 16 Unknown LIPID GROUP 24674 Cholesterol 146 mg/dL 03/06/2016 Unkno wn LIPID GROUP 19565 Triglyceride 249 mg/dL 03/06/2016 Unkn own LIPID GROUP 39042 HDL CHOLESTEROL 46 mg/dL 03/06/2016 U nknown LIPID GROUP 10961 Chol/HDL Ratio 3.17 ratio 03/06/2016 U nknown LIPID GROUP 57193 NON-HDL Chol 100 mg/dL 03/06/2016 Unkn own LIPID GROUP 84656 LDL Cholesterol 50 mg/dL 03/06/2016 U nknown COMPLETE BLOOD COUNT 5331846 WBC 11.2 10e9/L 016 Unknown COMPLETE BLOOD COUNT 7169227 RBC 3.94 10e12/L 2015 Unknown COMPLETE BLOOD COUNT 9808860 HEMOGLOBIN 11.4 g/dL 03/06/20 16 Unknown COMPLETE BLOOD COUNT 8005312 HEMATOCRIT 33.7 % 03/06/20 16 Unknown COMPLETE BLOOD COUNT 0692014 MCV 85.5 fL 6 Unknown COMPLETE BLOOD COUNT 8330141 MCH 28.9 pg 6 Unknown COMPLETE BLOOD COUNT 1081421 MCHC 33.8 g/dL 6 Unknown COMPLETE BLOOD COUNT 9737614 PLATELET COUNT 204 10e9/L Unknown COMPLETE BLOOD COUNT 2067337 Mean Plt Volume 10.1 fL Unknown COMPLETE BLOOD COUNT 3660398 Neut Auto 85.9 % 6 Unknown COMPLETE BLOOD COUNT 5361269 Lymph Auto 6.8 % 03/06/20 16 Unknown COMPLETE BLOOD COUNT 8292899 Weber Auto 7.0 % 6 Unknown COMPLETE BLOOD COUNT 3143618 RDW 13.7 % 6 Unknown COMPLETE BLOOD COUNT 6355036 Eos Auto 0.1 % 6 Unknown COMPLETE BLOOD COUNT 3694954 Baso Auto 0.2 % 6 Unknown COMPLETE BLOOD COUNT 6677417 Neutrophil Abs 9.62 10e9/L Unknown COMPLETE BLOOD COUNT 1328111 Lymphoctye Abs 0.76 10e9/L Unknown COMPLETE BLOOD COUNT 5064521 Monocyte Abs 0.78 10e9/L 02/22 Unknown COMPLETE BLOOD COUNT 0084740 Eosinophil Abs 0.01 10e9/L Unknown COMPLETE BLOOD COUNT 2058476 Basophil Abs 0.02 10e9/L 02/22 Unknown COMPLETE BLOOD COUNT 5690211 RDW-SD 41.9 fL 6 Unknown FREE T4 12946 T4 Free 0.89 ng/dL 03/06/2016 Unknown GFR CALC 6183530 GFR Afr Amr >60 mL/min 03/06/2016 Unknow n GFR CALC 7575494 GFR Non Afr Amr >60 mL/min 03/06/2016 Un known PSA EQUIMOLAR JONATAN 23218 PSA Total 0.78 ng/mL 6 Unknown FREE T4 89745 FREE T4 0.90 NG/DL 07/01/2015 Unknown LIPID GROUP 90975 HDL TEST 44 MG/DL 07/01/2015 Unknown LIPID GROUP 91912 TRIG 303 MG/DL 07/01/2015 Unknown LIPID GROUP 11383 TEST LDL 56 MG/DL 07/01/2015 Unknown LIPID GROUP 41497 CHOL 161 MG/DL 07/01/2015 Unknown LIPID GROUP 20394 RCHOL/HDL 3.66 RATIO 07/01/2015 Unknow n LIPID GROUP 01559 NON-HDL CH 117 MG/DL 07/01/2015 Unknow n THYROID STIMULATING HORMONE 48608 TSH 1.783 uIU/ML 07/01/2015 Unknown COMPLETE BLOOD COUNT 5348712 WBC 6.6 10e9/L 07/01/20 15 Unknown COMPLETE BLOOD COUNT 7358222 RBC 4.18 10e12/L 2014 Unknown COMPLETE BLOOD COUNT 3117249 HGB 12.2 g/dL 5 Unknown COMPLETE BLOOD COUNT 4979051 HCT DET 37.0 % 5 Unknown COMPLETE BLOOD COUNT 2426860 MCV 88.5 fL 5 Unknown COMPLETE BLOOD COUNT 8197700 MCH 29.2 pg 5 Unknown COMPLETE BLOOD COUNT 1770949 MCHC 33.0 g/dL 5 Unknown COMPLETE BLOOD COUNT 4781986 PLT 224 10e9/L 07/01/20 15 Unknown COMPLETE BLOOD COUNT 6562422 MPV 10.4 fL 5 Unknown COMPLETE BLOOD COUNT 6253008 SUSIE % 72.6 % 5 Unknown COMPLETE BLOOD COUNT 2303252 LY % 14.1 % 5 Unknown COMPLETE BLOOD COUNT 4052438 MON % 10.2 % 5 Unknown COMPLETE BLOOD COUNT 7711232 EOS % 2.6 % 5 Unknown COMPLETE BLOOD COUNT 1606551 BASO % 0.5 % 5 Unknown COMPLETE BLOOD COUNT 7331733 RDW 14.1 % 5 Unknown COMPLETE BLOOD COUNT 0023864 ABS SUSIE 4.79 10e9/L 015 Unknown COMPLETE BLOOD COUNT 6701372 ABS LYMPH 0.93 10e9/L 015 Unknown COMPLETE BLOOD COUNT 8209889 ABS MONO 0.67 10e9/L 015 Unknown COMPLETE BLOOD COUNT 4892637 ABS EOS 0.17 10e9/L 015 Unknown COMPLETE BLOOD COUNT 3720616 ABS BASO 0.03 10e9/L 015 Unknown COMPLETE BLOOD COUNT 2147774 RDW-SD 43.9 fL 5 Unknown PSA EQUIMOLAR JONATAN 47747 PSA EQ 0.73 NG/ML 5 Unknown COMPREHENSIVE METABOLIC 23402 AST 24 U/L 2014 Unknown COMPREHENSIVE METABOLIC 11527 ALT 26 IU/L 2014 Unknown COMPREHENSIVE METABOLIC 55928 BUN 26 MG/DL 2014 Unknown COMPREHENSIVE METABOLIC 62080 ALBUMIN 4.6 GM/DL 2014 Unknown COMPREHENSIVE METABOLIC 15052 CHLORIDE 102 MMOL/L 06/01 Unknown COMPREHENSIVE METABOLIC 93147 BILI TOT 0.5 MG/DL 2014 Unknown COMPREHENSIVE METABOLIC 40009 ALK PHOS 56 U/L 2014 Unknown COMPREHENSIVE METABOLIC 14309 SODIUM 136 MMOL/L 06/01 Unknown COMPREHENSIVE METABOLIC 45570 CREATININE 1.16 MG/DL 04/2015 Unknown COMPREHENSIVE METABOLIC 39239 CALCIUM 9.8 MG/DL 2014 Unknown COMPREHENSIVE METABOLIC 26198 POTASSIUM 4.6 MMOL/L 06/01 Unknown COMPREHENSIVE METABOLIC 60475 PROT TOT 7.4 GM/DL 2014 Unknown COMPREHENSIVE METABOLIC 16963 Glucose 223 MG/DL 2014 Unknown COMPREHENSIVE METABOLIC 28961 BICARB 27 MMOL/L 2014 Unknown COMPREHENSIVE METABOLIC 28503 ANION GAP 7 MEQ/L 2014 Unknown GFR CALC 7365071 GFR AA >60 ML/MIN 06/01/2015 Unknown GFR CALC 4281869 GFR NON-AA >60 ML/MIN 06/01/2015 Unknown GLYCOSYLATED HEMOGLOBIN TEST 10512 A1C HPLC 68284-1 8.9 % 0 06/01/2015 Unknown GFR CALC 1901361 GFR AA >60 ML/MIN 02/25/2015 Unknown GFR CALC 9612250 GFR NON-AA >60 ML/MIN 02/25/2015 Unknown COMPREHENSIVE METABOLIC 20609 AST 24 U/L 2014 Unknown COMPREHENSIVE METABOLIC 18444 ALT 25 IU/L 2014 Unknown COMPREHENSIVE METABOLIC 20600 BUN 14 MG/DL 2014 Unknown COMPREHENSIVE METABOLIC 79558 ALBUMIN 4.5 GM/DL 2014 Unknown COMPREHENSIVE METABOLIC 70911 CHLORIDE 99 MMOL/L 2014 Unknown COMPREHENSIVE METABOLIC 83945 BILI TOT 0.5 MG/DL 2014 Unknown COMPREHENSIVE METABOLIC 30801 ALK PHOS 48 U/L 2014 Unknown COMPREHENSIVE METABOLIC 38493 SODIUM 136 MMOL/L 02/25 Unknown COMPREHENSIVE METABOLIC 67568 CREATININE 0.97 MG/DL 12/2014 Unknown COMPREHENSIVE METABOLIC 19175 CALCIUM 9.9 MG/DL 2014 Unknown COMPREHENSIVE METABOLIC 44932 POTASSIUM 4.4 MMOL/L 02/25 Unknown COMPREHENSIVE METABOLIC 65412 PROT TOT 7.1 GM/DL 2014 Unknown COMPREHENSIVE METABOLIC 57804 Glucose 171 MG/DL 2014 Unknown COMPREHENSIVE METABOLIC 03352 BICARB 25 MMOL/L 2014 Unknown COMPREHENSIVE METABOLIC 55503 ANION GAP 12 MEQ/L 2014 Unknown PROTEIN/CREAT URINE WITH RATIO [id number] PROT R U 19 MG/D L 08/27/2014 Unknown PROTEIN/CREAT URINE WITH RATIO [id number]|[id number] CREAT R U 111 MG/ DL 08/27/2014 Unknown PROTEIN/CREAT URINE WITH RATIO 00263|[id number] XRATIO P/C 171 MG /G 08/27/2014 Unknown MICROALBUMIN URINE RANDOM 21881 MICRL MG/L 34.7 MG/L 12/2013 Unknown MICROALBUMIN URINE RANDOM 44503 XM.ALB/CRE 32.7 MG/GCR 1 10/28/2013 Unknown MICROALBUMIN URINE RANDOM 61666 CREAT MG/D 106 MG/DL 12/2013 Unknown MICROALBUMIN URINE RANDOM 21745 CRE/100 1.06 G/L 12/2013 Unknown COMPLETE BLOOD COUNT [id number] WBC 7.1 10e9/L 08/05/20 14 Unknown COMPLETE BLOOD COUNT [id number] RBC 4.35 10e12/L 2013 Unknown COMPLETE BLOOD COUNT [id number] HGB 12.9 g/dL 4 Unknown COMPLETE BLOOD COUNT [id number] HCT DET 39.4 % 4 Unknown COMPLETE BLOOD COUNT [id number] MCV 90.6 fL 4 Unknown COMPLETE BLOOD COUNT [id number] MCH 29.7 pg 4 Unknown COMPLETE BLOOD COUNT [id number] MCHC 32.7 g/dL 4 Unknown COMPLETE BLOOD COUNT [id number] PLT 240 10e9/L 08/05/20 14 Unknown COMPLETE BLOOD COUNT [id number] MPV 10.3 fL 4 Unknown COMPLETE BLOOD COUNT [id number] SUSIE % 70.0 % 4 Unknown COMPLETE BLOOD COUNT [id number] LY % 16.4 % 4 Unknown COMPLETE BLOOD COUNT [id number] MON % 9.2 % 4 Unknown COMPLETE BLOOD COUNT [id number] EOS % 3.8 % 4 Unknown COMPLETE BLOOD COUNT [id number] BASO % 0.6 % 4 Unknown COMPLETE BLOOD COUNT [id number] RDW 13.4 % 4 Unknown COMPLETE BLOOD COUNT [id number] ABS SUSIE 4.97 10e9/L 014 Unknown COMPLETE BLOOD COUNT [id number] ABS LYMPH 1.16 10e9/L 014 Unknown COMPLETE BLOOD COUNT [id number] ABS MONO 0.65 10e9/L 014 Unknown COMPLETE BLOOD COUNT [id number] ABS EOS 0.27 10e9/L 014 Unknown COMPLETE BLOOD COUNT [id number] ABS BASO 0.04 10e9/L 014 Unknown COMPLETE BLOOD COUNT [id number] RDW-SD 43.3 fL 4 Unknown FREE T4 54757 FREE T4 1.02 NG/DL 08/05/2014 Unknown GFR CALC 9429410 GFR AA >60 ML/MIN 08/05/2014 Unknown GFR CALC 0763857 GFR NON-AA >60 ML/MIN 08/05/2014 Unknown GLYCOSYLATED HEMOGLOBIN TEST 18811 A1C HPLC 46099-4 7.7 % 1 10/05/2013 Unknown COMPREHENSIVE METABOLIC 97377 AST 19 U/L 2013 Unknown COMPREHENSIVE METABOLIC 35082 ALT 21 IU/L 2013 Unknown COMPREHENSIVE METABOLIC 10185 BUN 25 MG/DL 2013 Unknown COMPREHENSIVE METABOLIC 99209 ALBUMIN 4.6 GM/DL 2013 Unknown COMPREHENSIVE METABOLIC 80664 CHLORIDE 103 MMOL/L 08/05 Unknown COMPREHENSIVE METABOLIC 34737 BILI TOT 0.4 MG/DL 2013 Unknown COMPREHENSIVE METABOLIC 49917 ALK PHOS 45 U/L 2013 Unknown COMPREHENSIVE METABOLIC 89368 SODIUM 138 MMOL/L 08/05 Unknown COMPREHENSIVE METABOLIC 28960 CREATININE 1.01 MG/DL 07/25 Unknown COMPREHENSIVE METABOLIC 46786 CALCIUM 9.8 MG/DL 2013 Unknown COMPREHENSIVE METABOLIC 40149 POTASSIUM 4.7 MMOL/L 08/05 Unknown COMPREHENSIVE METABOLIC 52834 PROT TOT 7.0 GM/DL 2013 Unknown COMPREHENSIVE METABOLIC 57641 Glucose 145 MG/DL 2013 Unknown COMPREHENSIVE METABOLIC 34862 BICARB 27 MMOL/L 2013 Unknown COMPREHENSIVE METABOLIC 62179 ANION GAP 8 MEQ/L 2013 Unknown THYROID STIMULATING HORMONE 54592 TSH 1.922 uIU/ML 08/05/2014 Unknown LIPID GROUP 64322 HDL TEST 47 MG/DL 08/05/2014 Unknown LIPID GROUP 62639 TRIG 224 MG/DL 08/05/2014 Unknown LIPID GROUP 33083 TEST LDL 125 MG/DL 08/05/2014 Unknown LIPID GROUP 98043 CHOL 217 MG/DL 08/05/2014 Unknown LIPID GROUP 92805 RCHOL/HDL 4.62 RATIO 08/05/2014 Unknow n LIPID GROUP 22910 NON-HDL CH 170 MG/DL 08/05/2014 Unknow n MYCOPLASMA ANTIBODY, IFA [id number] MYCO G IFA 1:256 03/24 Unknown MYCOPLASMA ANTIBODY, IFA [id number] MYCO M IFA <1:10 03/24 Unknown MYCOPLASMA ANTIBODY, IFA [id number] MYCO INTER SEE BELO 03/24 Unknown COMPLETE BLOOD COUNT [id number] WBC 8.3 10e9/L 04/09/20 13 Unknown COMPLETE BLOOD COUNT [id number] RBC 4.61 10e12/L 2012 Unknown COMPLETE BLOOD COUNT 7753290 HGB 13.9 g/dL 3 Unknown COMPLETE BLOOD COUNT [id number] HCT DET 41.2 % 3 Unknown COMPLETE BLOOD COUNT 9883949 MCV 89.4 fL 3 Unknown COMPLETE BLOOD COUNT 9861007 MCH 30.2 pg 3 Unknown COMPLETE BLOOD COUNT [id number] MCHC 33.7 g/dL 3 Unknown COMPLETE BLOOD COUNT [id number] PLT 249 10e9/L 04/09/20 13 Unknown COMPLETE BLOOD COUNT [id number] MPV 9.8 fL 3 Unknown COMPLETE BLOOD COUNT [id number] SUSIE % 65.9 % 3 Unknown COMPLETE BLOOD COUNT 5345766 LY % 19.8 % 3 Unknown COMPLETE BLOOD COUNT [id number] MON % 10.8 % 3 Unknown COMPLETE BLOOD COUNT [id number] EOS % 3.0 % 3 Unknown COMPLETE BLOOD COUNT [id number] BASO % 0.5 % 3 Unknown COMPLETE BLOOD COUNT 8240517 RDW 14.0 % 3 Unknown COMPLETE BLOOD COUNT [id number] ABS SUSIE 5.47 10e9/L 013 Unknown COMPLETE BLOOD COUNT [id number] ABS LYMPH 1.64 10e9/L 013 Unknown COMPLETE BLOOD COUNT [id number] ABS MONO 0.90 10e9/L 013 Unknown COMPLETE BLOOD COUNT [id number] ABS EOS 0.25 10e9/L 013 Unknown COMPLETE BLOOD COUNT 8210016 ABS BASO 0.04 10e9/L 013 Unknown COMPLETE BLOOD COUNT 2384621 RDW-SD 45.0 fL 3 Unknown URIC ACID 90101 URIC ACID 5.3 MG/DL 02/12/2013 Unknown FREE T4 51972 FREE T4 1.09 NG/DL 02/11/2013 Unknown COMPLETE BLOOD COUNT [id number] WBC 6.3 10e9/L 02/12/20 13 Unknown COMPLETE BLOOD COUNT [id number] RBC 4.29 10e12/L 2012 Unknown COMPLETE BLOOD COUNT 0326919 HGB 13.1 g/dL 3 Unknown COMPLETE BLOOD COUNT [id number] HCT DET 39.7 % 3 Unknown COMPLETE BLOOD COUNT 3854712 MCV 92.5 fL 3 Unknown COMPLETE BLOOD COUNT [id number] MCH 30.5 pg 3 Unknown COMPLETE BLOOD COUNT 4694613 MCHC 33.0 g/dL 3 Unknown COMPLETE BLOOD COUNT 6253177 PLT 247 10e9/L 02/12/20 13 Unknown COMPLETE BLOOD COUNT 1738495 MPV 10.0 fL 3 Unknown COMPLETE BLOOD COUNT [id number] SUSIE % 73.4 % 3 Unknown COMPLETE BLOOD COUNT 5503660 LY % 13.5 % 3 Unknown COMPLETE BLOOD COUNT [id number] MON % 9.4 % 3 Unknown COMPLETE BLOOD COUNT [id number] EOS % 2.9 % 3 Unknown COMPLETE BLOOD COUNT [id number] BASO % 0.8 % 3 Unknown COMPLETE BLOOD COUNT 5460447 RDW 13.8 % 3 Unknown COMPLETE BLOOD COUNT [id number] ABS SUSIE 4.62 10e9/L 013 Unknown COMPLETE BLOOD COUNT 9262086 ABS LYMPH 0.85 10e9/L 013 Unknown COMPLETE BLOOD COUNT [id number] ABS MONO 0.59 10e9/L 013 Unknown COMPLETE BLOOD COUNT 9238762 ABS EOS 0.18 10e9/L 013 Unknown COMPLETE BLOOD COUNT 2575391 ABS BASO 0.05 10e9/L 013 Unknown COMPLETE BLOOD COUNT 9757862 RDW-SD 45.7 fL 3 Unknown HEMOGLOBIN A1C (GLYCOSYLATED) 3059497 A1C HPLC 79188-7 7.5 % 02/11/2013 Unknown THYROID STIMULATING HORMONE 95810 TSH 1.466 uIU/ML 02/11/2013 Unknown VITAMIN B 12 FOLIC ACID 42979|04964 VIT B 12 625 PG/ML 01/23 Unknown VITAMIN B 12 FOLIC ACID 64591|47852 FOLIC ACID 15.6 NG/ML Unknown COMPREHENSIVE METABOLIC 51288 AST 18 U/L 2012 Unknown COMPREHENSIVE METABOLIC 76843 ALT 21 IU/L 2012 Unknown COMPREHENSIVE METABOLIC 84018 BUN 25 MG/DL 2012 Unknown COMPREHENSIVE METABOLIC 16086 ALBUMIN 4.6 GM/DL 2012 Unknown COMPREHENSIVE METABOLIC 09919 CHLORIDE 103 MMOL/L 02/11 Unknown COMPREHENSIVE METABOLIC 10036 BILI TOT 0.3 MG/DL 2012 Unknown COMPREHENSIVE METABOLIC 14048 ALK PHOS 53 U/L 2012 Unknown COMPREHENSIVE METABOLIC 58404 SODIUM 136 MMOL/L 02/11 Unknown COMPREHENSIVE METABOLIC 96793 CREATININE 1.16 MG/DL 01/23 Unknown COMPREHENSIVE METABOLIC 14060 CALCIUM 10.0 MG/DL 02/11 Unknown COMPREHENSIVE METABOLIC 79959 POTASSIUM 4.9 MMOL/L 02/11 Unknown COMPREHENSIVE METABOLIC 75839 PROT TOT 7.0 GM/DL 2012 Unknown COMPREHENSIVE METABOLIC 42043 Glucose 192 MG/DL 2012 Unknown COMPREHENSIVE METABOLIC 85750 BICARB 26 MMOL/L 2012 Unknown COMPREHENSIVE METABOLIC 81581 ANION GAP 7 MEQ/L 2012 Unknown GFR CALC 6183869 GFR AA >60 ML/MIN 02/11/2013 Unknown GFR CALC 2798677 GFR NON-AA >60 ML/MIN 02/11/2013 Unknown C-REACTIVE PROTEIN (CRP) QUANT 06771 CRP 2.7 MG/DL 02/11/2013 Unknown GFR CALC 9256884 GFR AA >60 ML/MIN 09/19/2012 Unknown GFR CALC 6504509 GFR NON-AA >60 ML/MIN 09/19/2012 Unknown HEMOGLOBIN A1C (GLYCOSYLATED) 2251174 A1C HPLC 49607-9 7.2 % 09/19/2012 Unknown COMPREHENSIVE METABOLIC 30088 AST 13 U/L 2011 Unknown COMPREHENSIVE METABOLIC 16985 ALT 17 IU/L 2011 Unknown COMPREHENSIVE METABOLIC 01311 BUN 25 MG/DL 2011 Unknown COMPREHENSIVE METABOLIC 92184 ALBUMIN 4.5 GM/DL 2011 Unknown COMPREHENSIVE METABOLIC 49287 CHLORIDE 104 MMOL/L 09/19 Unknown COMPREHENSIVE METABOLIC 22302 BILI TOT 0.3 MG/DL 2011 Unknown COMPREHENSIVE METABOLIC 84052 ALK PHOS 43 U/L 2011 Unknown COMPREHENSIVE METABOLIC 51719 SODIUM 139 MMOL/L 09/19 Unknown COMPREHENSIVE METABOLIC 01973 CREATININE 1.10 MG/DL 08/25 Unknown COMPREHENSIVE METABOLIC 88931 CALCIUM 9.8 MG/DL 2011 Unknown COMPREHENSIVE METABOLIC 15011 POTASSIUM 4.8 MMOL/L 09/19 Unknown COMPREHENSIVE METABOLIC 98252 PROT TOT 6.5 GM/DL 2011 Unknown COMPREHENSIVE METABOLIC 41951 Glucose 148 MG/DL 2011 Unknown COMPREHENSIVE METABOLIC 47128 BICARB 25 MMOL/L 2011 Unknown COMPREHENSIVE METABOLIC 83117 ANION GAP 10 MEQ/L 2011 Unknown LIPID GROUP 98182 HDL TEST 44 MG/DL 09/19/2012 Unknown LIPID GROUP 70993 TRIG 318 MG/DL 09/19/2012 Unknown LIPID GROUP 77406 TEST LDL 100 MG/DL 09/19/2012 Unknown LIPID GROUP 17628 CHOL 208 MG/DL 09/19/2012 Unknown LIPID GROUP 82977 RCHOL/HDL 4.73 RATIO 09/19/2012 Unknow n FREE T4 87494 FREE T4 0.87 NG/DL 05/06/2012 Unknown GLYCOSYLATED HEMOGLOBIN TEST 37172 A1C HPLC 98606-9 6.4 % 0 05/06/2012 Unknown LIPID GROUP 48173 HDL TEST 44 MG/DL 05/06/2012 Unknown LIPID GROUP 09654 TRIG 177 MG/DL 05/06/2012 Unknown LIPID GROUP 47033 TEST LDL 113 MG/DL 05/06/2012 Unknown LIPID GROUP 30195 CHOL 192 MG/DL 05/06/2012 Unknown LIPID GROUP 90112 RCHOL/HDL 4.36 RATIO 05/06/2012 Unknow n THYROID STIMULATING HORMONE 02285 TSH 1.151 uIU/ML 05/06/2012 Unknown COMPLETE BLOOD COUNT 50802 WBC 7.8 10e9/L 05/06/20 12 Unknown COMPLETE BLOOD COUNT 32794 RBC 4.31 10e12/L 2011 Unknown COMPLETE BLOOD COUNT 36626 HGB 12.8 g/dL 2 Unknown COMPLETE BLOOD COUNT 77065 HCT DET 39.1 % 2 Unknown COMPLETE BLOOD COUNT 28722 MCV 90.7 fL 2 Unknown COMPLETE BLOOD COUNT 34743 MCH 29.7 pg 2 Unknown COMPLETE BLOOD COUNT 38130 MCHC 32.7 g/dL 2 Unknown COMPLETE BLOOD COUNT 78620 PLT 207 10e9/L 05/06/20 12 Unknown COMPLETE BLOOD COUNT 67621 MPV 10.2 fL 2 Unknown COMPLETE BLOOD COUNT 94087 SUSIE % 74.2 % 2 Unknown COMPLETE BLOOD COUNT 51462 LY % 12.8 % 2 Unknown COMPLETE BLOOD COUNT 59508 MON % 11.0 % 2 Unknown COMPLETE BLOOD COUNT 22053 EOS % 1.7 % 2 Unknown COMPLETE BLOOD COUNT 57225 BASO % 0.3 % 2 Unknown COMPLETE BLOOD COUNT 91047 RDW 13.7 % 2 Unknown COMPLETE BLOOD COUNT 51342 ABS SUSIE 5.79 10e9/L 012 Unknown COMPLETE BLOOD COUNT 46608 ABS LYMPH 1.00 10e9/L 012 Unknown COMPLETE BLOOD COUNT 00606 ABS MONO 0.86 10e9/L 012 Unknown COMPLETE BLOOD COUNT 06631 ABS EOS 0.13 10e9/L 012 Unknown COMPLETE BLOOD COUNT 52663 ABS BASO 0.02 10e9/L 012 Unknown COMPLETE BLOOD COUNT 39884 RDW-SD 44.4 fL 2 Unknown COMPREHENSIVE METABOLIC 24638 AST 13 U/L 2011 Unknown COMPREHENSIVE METABOLIC 24521 ALT 14 IU/L 2011 Unknown COMPREHENSIVE METABOLIC 47473 BUN 17 MG/DL 2011 Unknown COMPREHENSIVE METABOLIC 81014 ALBUMIN 4.5 GM/DL 2011 Unknown COMPREHENSIVE METABOLIC 39006 CHLORIDE 101 MMOL/L 05/06 Unknown COMPREHENSIVE METABOLIC 34901 BILI TOT 0.5 MG/DL 2011 Unknown COMPREHENSIVE METABOLIC 90381 ALK PHOS 42 U/L 2011 Unknown COMPREHENSIVE METABOLIC 40699 SODIUM 141 MMOL/L 05/06 Unknown COMPREHENSIVE METABOLIC 65856 CREATININE 1.02 MG/DL 04/24 Unknown COMPREHENSIVE METABOLIC 29299 CALCIUM 9.7 MG/DL 2011 Unknown COMPREHENSIVE METABOLIC 12156 POTASSIUM 4.6 MMOL/L 05/06 Unknown COMPREHENSIVE METABOLIC 79850 PROT TOT 6.5 GM/DL 2011 Unknown COMPREHENSIVE METABOLIC 79714 Glucose 139 MG/DL 2011 Unknown COMPREHENSIVE METABOLIC 76386 BICARB 29 MMOL/L 2011 Unknown COMPREHENSIVE METABOLIC 53142 ANION GAP 11 MEQ/L 2011 Unknown GFR CALC 6312595 GFR AA >60 ML/MIN 05/06/2012 Unknown GFR CALC 9620158 GFR NON-AA 54.0L ML/MIN 05/06/2012 Unkno wn GLYCOSYLATED HEMOGLOBIN TEST 86490 A1C HPLC 86656-8 6.6 % 1 09/30/2010 Unknown FREE T4 00870 FREE T4 1.00 NG/DL 07/26/2011 Unknown LIPID GROUP 12415 HDL TEST 40 MG/DL 07/26/2011 Unknown LIPID GROUP 28291 TRIG 136 MG/DL 07/26/2011 Unknown LIPID GROUP 69568 TEST LDL 126 MG/DL 07/26/2011 Unknown LIPID GROUP 48533 CHOL 193 MG/DL 07/26/2011 Unknown LIPID GROUP 21253 RCHOL/HDL 4.83 RATIO 07/26/2011 Unknow n COMPREHENSIVE METABOLIC 82124 AST 15 U/L 2010 Unknown COMPREHENSIVE METABOLIC 96275 ALT 13 IU/L 2010 Unknown COMPREHENSIVE METABOLIC 29121 BUN 17 MG/DL 2010 Unknown COMPREHENSIVE METABOLIC 04854 ALBUMIN 4.4 GM/DL 2010 Unknown COMPREHENSIVE METABOLIC 88385 CHLORIDE 102 MMOL/L 07/26 Unknown COMPREHENSIVE METABOLIC 09303 BILI TOT 0.5 MG/DL 2010 Unknown COMPREHENSIVE METABOLIC 96260 ALK PHOS 54 U/L 2010 Unknown COMPREHENSIVE METABOLIC 58208 SODIUM 138 MMOL/L 07/26 Unknown COMPREHENSIVE METABOLIC 64002 CREATININE 0.95 MG/DL 10/2010 Unknown COMPREHENSIVE METABOLIC 42801 CALCIUM 9.3 MG/DL 2010 Unknown COMPREHENSIVE METABOLIC 02823 POTASSIUM 4.3 MMOL/L 07/26 Unknown COMPREHENSIVE METABOLIC 57622 PROT TOT 6.7 GM/DL 2010 Unknown COMPREHENSIVE METABOLIC 34681 Glucose 116 MG/DL 2010 Unknown COMPREHENSIVE METABOLIC 09016 BICARB 28 MMOL/L 2010 Unknown COMPREHENSIVE METABOLIC 68765 ANION GAP 8 MEQ/L 2010 Unknown PSA EQUIMOLAR JONATAN 49985 PSA EQ 1.01 NG/ML 1 Unknown COMPLETE BLOOD COUNT 70551 WBC 6.4 10e9/L 07/26/20 11 Unknown COMPLETE BLOOD COUNT 99582 RBC 4.43 10e12/L 2010 Unknown COMPLETE BLOOD COUNT 05696 HGB 13.2 g/dL 1 Unknown COMPLETE BLOOD COUNT 52183 HCT DET 39.3 % 1 Unknown COMPLETE BLOOD COUNT 27096 MCV 88.7 fL 1 Unknown COMPLETE BLOOD COUNT 16665 MCH 29.8 pg 1 Unknown COMPLETE BLOOD COUNT 77287 MCHC 33.6 g/dL 1 Unknown COMPLETE BLOOD COUNT 88536 PLT 226 10e9/L 07/26/20 11 Unknown COMPLETE BLOOD COUNT 65046 MPV 9.9 fL 1 Unknown COMPLETE BLOOD COUNT 33575 SUSIE % 65.4 % 1 Unknown COMPLETE BLOOD COUNT 77796 LY % 19.7 % 1 Unknown COMPLETE BLOOD COUNT 00414 MON % 10.8 % 1 Unknown COMPLETE BLOOD COUNT 57232 EOS % 3.6 % 1 Unknown COMPLETE BLOOD COUNT 47832 BASO % 0.5 % 1 Unknown COMPLETE BLOOD COUNT 74185 RDW 13.2 % 1 Unknown COMPLETE BLOOD COUNT 56159 ABS SUSIE 4.19 10e9/L 011 Unknown COMPLETE BLOOD COUNT 44384 ABS LYMPH 1.26 10e9/L 011 Unknown COMPLETE BLOOD COUNT 73070 ABS MONO 0.69 10e9/L 011 Unknown COMPLETE BLOOD COUNT 29207 ABS EOS 0.23 10e9/L 11/02/2 011 Unknown COMPLETE BLOOD COUNT 91648 ABS BASO 0.03 10e9/L 011 Unknown COMPLETE BLOOD COUNT 81493 RDW-SD 41.7 fL 1 Unknown THYROID STIMULATING HORMONE 99099 TSH 1.345 uIU/ML 07/26/2011 Unknown GFR CALC 1831814 GFR AA >60 ML/MIN 07/26/2011 Unknown GFR CALC 3025047 GFR NON-AA >60 ML/MIN 07/26/2011 Unknown BRAIN NATRIURETIC PEPTIDE(BNP) 57725 BRAIN PEP 23 pg/mL 01/19/2011 Unknown CANCEL 2012765 CANCEL FOOTNOTE 01/18/2011 Unknown TESTOSTERONE TOTAL 08697 TESTOS TO 138 NG/DL 12/19/2010 Unknown COMPLETE BLOOD COUNT 78994 WBC 8.4 10e9/L 12/08/19 11 Unknown COMPLETE BLOOD COUNT 99977 RBC 4.40 10e12/L 2010 Unknown COMPLETE BLOOD COUNT 67709 HGB 13.3 g/dL 1 Unknown COMPLETE BLOOD COUNT 89329 HCT DET 39.8 % 1 Unknown COMPLETE BLOOD COUNT 00547 MCV 90.5 fL 1 Unknown COMPLETE BLOOD COUNT 44612 MCH 30.2 pg 1 Unknown COMPLETE BLOOD COUNT 13599 MCHC 33.4 g/dL 1 Unknown COMPLETE BLOOD COUNT 00481 PLT 201 10e9/L 12/08/19 11 Unknown COMPLETE BLOOD COUNT 15169 MPV 10.6 fL 1 Unknown COMPLETE BLOOD COUNT 28366 SUSIE % 72.5 % 1 Unknown COMPLETE BLOOD COUNT 14184 LY % 14.8 % 1 Unknown COMPLETE BLOOD COUNT 01722 MON % 10.6 % 1 Unknown COMPLETE BLOOD COUNT 57440 EOS % 1.7 % 1 Unknown COMPLETE BLOOD COUNT 39714 BASO % 0.4 % 1 Unknown COMPLETE BLOOD COUNT 12636 RDW 13.7 % 1 Unknown COMPLETE BLOOD COUNT 08224 ABS SUSIE 6.09 10e9/L 011 Unknown COMPLETE BLOOD COUNT 71008 ABS LYMPH 1.24 10e9/L 011 Unknown COMPLETE BLOOD COUNT 10868 ABS MONO 0.89 10e9/L 03/16/2 011 Unknown COMPLETE BLOOD COUNT 67869 ABS EOS 0.14 10e9/L 011 Unknown COMPLETE BLOOD COUNT 23336 ABS BASO 0.03 10e9/L 011 Unknown COMPLETE BLOOD COUNT 08738 RDW-SD 44.0 fL 1 Unknown LIPID GROUP 08972 HDL TEST 40 MG/DL 12/07/2010 Unknown LIPID GROUP 67626 TRIG 383 MG/DL 12/07/2010 Unknown LIPID GROUP 51593 TEST LDL 82 MG/DL 12/07/2010 Unknown LIPID GROUP 91184 CHOL 199 MG/DL 12/07/2010 Unknown LIPID GROUP 88941 RCHOL/HDL 4.98 RATIO 12/07/2010 Unknow n GFR CALC 6940558 GFR AA >60 ML/MIN 12/07/2010 Unknown GFR CALC 9942220 GFR NON-AA >60 ML/MIN 12/07/2010 Unknown COMPREHENSIVE METABOLIC 67406 AST 29 U/L 2010 Unknown COMPREHENSIVE METABOLIC 96348 ALT 39 IU/L 2010 Unknown COMPREHENSIVE METABOLIC 61816 BUN 17 MG/DL 2010 Unknown COMPREHENSIVE METABOLIC 01294 ALBUMIN 4.9 GM/DL 2010 Unknown COMPREHENSIVE METABOLIC 58700 CHLORIDE 100 MMOL/L 12/07 Unknown COMPREHENSIVE METABOLIC 52231 BILI TOT 0.3 MG/DL 2010 Unknown COMPREHENSIVE METABOLIC 61181 ALK PHOS 53 U/L 2010 Unknown COMPREHENSIVE METABOLIC 40046 SODIUM 137 MMOL/L 12/07 Unknown COMPREHENSIVE METABOLIC 04955 CREATININE 0.98 MG/DL 11/22 Unknown COMPREHENSIVE METABOLIC 48578 CALCIUM 9.5 MG/DL 2010 Unknown COMPREHENSIVE METABOLIC 37595 POTASSIUM 4.3 MMOL/L 12/07 Unknown COMPREHENSIVE METABOLIC 98870 PROT TOT 6.6 GM/DL 2010 Unknown COMPREHENSIVE METABOLIC 34720 Glucose 176 MG/DL 2010 Unknown COMPREHENSIVE METABOLIC 40234 BICARB 28 MMOL/L 2010 Unknown COMPREHENSIVE METABOLIC 25470 ANION GAP 9 MEQ/L 2010 Unknown PSA EQUIMOLAR JONATAN 58036 PSA EQ 0.65 NG/ML 1 Unknown HEMOGLOBIN A1C (GLYCOSYLATED) 50775 A1C HPLC 35480-3 6.9 % 12/07/2010 Unknown Procedures Procedure Codes Date THER/PROPH/DIAG INJ SC/IM CPT-4: 50395 12/25/2019 METHYLPREDNISOLONE INJECTION CPT-4: J2930 12/25/2019 FLU VACC PRSV FREE INC ANTIG 65 AND OLDER CPT-4: 48326 08/07/2019 FLU VACC PRSV FREE INC ANTIG 65 AND OLDER CPT-4: 65193 08/07/2019 ADMIN INFLUENZA VIRUS VAC CPT-4: G0008 08/07/2019 THER/PROPH/DIAG INJ SC/IM CPT-4: 92994 07/14/2019 METHYLPREDNISOLONE INJECTION CPT-4: J2930 07/14/2019 ROUTINE VENIPUNCTURE CPT-4: 17926 06/17/2019 ASSAY THYROID STIM HORMONE CPT-4: 24507 06/17/2019 COMPREHEN METABOLIC PANEL CPT-4: 78358 06/17/2019 COMPLETE CBC W/AUTO DIFF WBC CPT-4: 28071 06/17/2019 ASSAY OF IRON CPT-4: 67620 06/17/2019 VITAMIN B-12 CPT-4: 49096 06/17/2019 RBC SED RATE AUTOMATED CPT-4: 80455 06/17/2019 THER/PROPH/DIAG INJ SC/IM CPT-4: 40746 06/10/2019 THER/PROPH/DIAG INJ SC/IM CPT-4: 30041 06/02/2019 THER/PROPH/DIAG INJ SC/IM CPT-4: 11501 05/27/2019 THER/PROPH/DIAG INJ SC/IM CPT-4: 98176 05/12/2019 ROUTINE VENIPUNCTURE CPT-4: 18256 05/08/2019 COMPREHEN METABOLIC PANEL CPT-4: 89352 05/08/2019 COMPLETE CBC W/AUTO DIFF WBC CPT-4: 25949 05/08/2019 A1C HPLC CPT-4: 89197 05/08/2019 VITAMIN D TOTAL (25 HYDROXY) CPT-4: 27513 05/08/2019 ASSAY OF IRON CPT-4: 23450 05/08/2019 ASSAY OF FERRITIN CPT-4: 93350 05/08/2019 VITAMIN B-12 CPT-4: 47945 05/08/2019 THER/PROPH/DIAG INJ SC/IM CPT-4: 33370 03/21/2019 METHYLPREDNISOLONE INJECTION CPT-4: J2930 03/21/2019 THER/PROPH/DIAG INJ SC/IM CPT-4: 40700 03/13/2019 METHYLPREDNISOLONE INJECTION CPT-4: J2930 03/13/2019 THER/PROPH/DIAG INJ SC/IM CPT-4: 79784 12/25/2018 METHYLPREDNISOLONE INJECTION CPT-4: J2930 12/25/2018 ROUTINE VENIPUNCTURE CPT-4: 70457 12/09/2018 ASSAY OF FREE THYROXINE CPT-4: 18598 12/09/2018 ASSAY THYROID STIM HORMONE CPT-4: 36989 12/09/2018 COMPREHEN METABOLIC PANEL CPT-4: 66212 12/09/2018 COMPLETE CBC W/AUTO DIFF WBC CPT-4: 63750 12/09/2018 LIPID PANEL CPT-4: 23169 12/09/2018 A1C HPLC CPT-4: 81630 12/09/2018 PRESCRIP TRANSMIT VIA ERX SY CPT-4: G8553 08/21/2018 PRESCRIP TRANSMIT VIA ERX SY CPT-4: G8553 08/07/2018 THER/PROPH/DIAG INJ SC/IM CPT-4: 30089 05/23/2018 METHYLPREDNISOLONE INJECTION CPT-4: J2930 05/23/2018 PRESCRIP TRANSMIT VIA ERX SY CPT-4: G8553 05/02/2018 THER/PROPH/DIAG INJ SC/IM CPT-4: 63791 04/29/2018 METHYLPREDNISOLONE INJECTION CPT-4: J2930 04/29/2018 DEXAMETHASONE SODIUM PHOS CPT-4: J1100 04/22/2018 THER/PROPH/DIAG INJ SC/IM CPT-4: 13236 04/22/2018 TRIAMCINOLONE ACET INJ NOS CPT-4: J3301 04/22/2018 PRESCRIP TRANSMIT VIA ERX SY CPT-4: G8553 04/22/2018 PRESCRIP TRANSMIT VIA ERX SY CPT-4: G8553 01/23/2018 URINALYSIS NONAUTO W/O SCOPE CPT-4: 67863 01/02/2018 URINE CULTURE/ COLONY COUNT CPT-4: 44509 01/02/2018 PRESCRIP TRANSMIT VIA ERX SY CPT-4: G8553 01/02/2018 PRESCRIP TRANSMIT VIA ERX SY CPT-4: G8553 12/28/2017 PRESCRIP TRANSMIT VIA ERX SY CPT-4: G8553 12/21/2017 CEFTRIAXONE SODIUM INJECTION CPT-4: J0696 12/17/2017 THER/PROPH/DIAG INJ SC/IM CPT-4: 75475 12/17/2017 THER/PROPH/DIAG INJ SC/IM CPT-4: 65611 12/17/2017 TRIAMCINOLONE ACET INJ NOS CPT-4: J3301 12/17/2017 PRESCRIP TRANSMIT VIA ERX SY CPT-4: G8553 12/17/2017 DRAIN/INJECT JOINT/BURSA CPT-4: 99389 12/11/2017 TRIAMCINOLONE ACET INJ NOS CPT-4: J3301 12/11/2017 DEXAMETHASONE SODIUM PHOS CPT-4: J1100 12/11/2017 DESTRUCT PREMALG LESION (Cryosurgery) CPT-4: 96688 PRESCRIP TRANSMIT VIA ERX SY CPT-4: G8553 10/17/2017 DEXAMETHASONE SODIUM PHOS CPT-4: J1100 08/02/2017 THER/PROPH/DIAG INJ SC/IM CPT-4: 16582 08/02/2017 TRIAMCINOLONE ACET INJ NOS CPT-4: J3301 08/02/2017 PRESCRIP TRANSMIT VIA ERX SY CPT-4: G8553 08/02/2017 PNEUMOCOCCAL VACC 23 OLIVIA IM CPT-4: 38524 07/24/2017 ADMIN PNEUMOCOCCAL VACCINE CPT-4: G0009 07/24/2017 ALBUTEROL NON-COMP UNIT CPT-4: J7613 07/02/2017 AIRWAY INHALATION TREATMENT CPT-4: 88019 07/02/2017 THER/PROPH/DIAG INJ SC/IM CPT-4: 20835 07/02/2017 METHYLPREDNISOLONE INJECTION CPT-4: J2930 07/02/2017 PRESCRIP TRANSMIT VIA ERX SY CPT-4: G8553 05/29/2017 ROUTINE VENIPUNCTURE CPT-4: 31480 04/17/2017 ASSAY OF IRON CPT-4: 46561 04/17/2017 VITAMIN B-12 CPT-4: 98461 04/17/2017 COMPREHEN METABOLIC PANEL CPT-4: 77041 04/17/2017 COMPLETE CBC W/AUTO DIFF WBC CPT-4: 42879 04/17/2017 ASSAY OF FERRITIN CPT-4: 14800 04/17/2017 ASSAY THYROID STIM HORMONE CPT-4: 77219 04/17/2017 A1C HPLC CPT-4: 19306 04/17/2017 DRAIN/INJECT JOINT/BURSA CPT-4: 32889 02/01/2017 TRIAMCINOLONE ACET INJ NOS CPT-4: J3301 02/01/2017 DEXAMETHASONE SODIUM PHOS CPT-4: J1100 02/01/2017 ROUTINE VENIPUNCTURE CPT-4: 04737 12/27/2016 COMPLETE CBC W/AUTO DIFF WBC CPT-4: 47913 12/27/2016 ROUTINE VENIPUNCTURE CPT-4: 31627 12/21/2016 COMPLETE CBC W/AUTO DIFF WBC CPT-4: 52676 12/21/2016 ROUTINE VENIPUNCTURE CPT-4: 31791 12/12/2016 COMPLETE CBC W/AUTO DIFF WBC CPT-4: 43179 12/12/2016 PRESCRIP TRANSMIT VIA ERX SY CPT-4: G8553 10/31/2016 PRESCRIP TRANSMIT VIA ERX SY CPT-4: G8553 10/03/2016 PRESCRIP TRANSMIT VIA ERX SY CPT-4: G8553 09/04/2016 DESTRUCT PREMALG LESION (Cryosurgery) CPT-4: 79113 DESTRUCT PREMALG LES 2-14 CPT-4: 78930 08/22/2016 PRESCRIP TRANSMIT VIA ERX SY CPT-4: G8553 08/10/2016 PRESCRIP TRANSMIT VIA ERX SY CPT-4: G8553 07/06/2016 FLU VACC PRSV FREE INC ANTIG 65 AND OLDER CPT-4: 15213 06/13/2016 PNEUMOCOCCAL VACC 13 OLIVIA IM CPT-4: 02451 06/13/2016 ADMIN INFLUENZA VIRUS VAC CPT-4: G0008 06/13/2016 ADMIN PNEUMOCOCCAL VACCINE CPT-4: G0009 06/13/2016 CERUM REMOVAL CPT-4: 83402 04/05/2016 PRESCRIP TRANSMIT VIA ERX SY CPT-4: G8553 04/03/2016 ROUTINE VENIPUNCTURE CPT-4: 58838 03/06/2016 ASSAY OF FREE THYROXINE CPT-4: 31475 03/06/2016 ASSAY THYROID STIM HORMONE CPT-4: 47172 03/06/2016 COMPREHEN METABOLIC PANEL CPT-4: 21400 03/06/2016 COMPLETE CBC W/AUTO DIFF WBC CPT-4: 88116 03/06/2016 LIPID PANEL CPT-4: 26900 03/06/2016 ASSAY OF PSA TOTAL CPT-4: 69677 03/06/2016 TESTOSTERONE TOTAL - MALE CPT-4: 52533 03/06/2016 A1C HPLC CPT-4: 85534 03/06/2016 ASSAY OF IRON CPT-4: 88657 03/06/2016 VITAMIN B-12 CPT-4: 99789 03/06/2016 INJ TENDON SHEATH/LIGAMENT CPT-4: 75348 02/17/2016 TRIAMCINOLONE ACET INJ NOS CPT-4: J3301 02/17/2016 DEXAMETHASONE SODIUM PHOS CPT-4: J1100 02/17/2016 PRESCRIP TRANSMIT VIA ERX SY CPT-4: G8553 01/31/2016 PRESCRIP TRANSMIT VIA ERX SY CPT-4: G8553 12/30/2015 PRESCRIP TRANSMIT VIA ERX SY CPT-4: G8553 12/06/2015 PRESCRIP TRANSMIT VIA ERX SY CPT-4: G8553 11/15/2015 PPPS, subseq visit CPT-4: G0439 10/05/2015 MICROALBUMIN QUANTITATIVE CPT-4: 10870 10/05/2015 PROTEIN/CREAT URINE WITH RATIO CPT-4: 14471|75624 6 ROUTINE VENIPUNCTURE CPT-4: 60676 07/01/2015 ASSAY OF FREE THYROXINE CPT-4: 32429 07/01/2015 ASSAY THYROID STIM HORMONE CPT-4: 93403 07/01/2015 COMPLETE CBC W/AUTO DIFF WBC CPT-4: 79954 07/01/2015 LIPID PANEL CPT-4: 01944 07/01/2015 ASSAY OF PSA TOTAL CPT-4: 43369 07/01/2015 AEROBIC WOUND CULTURE & STN CPT-4: 36489 06/28/2015 PRESCRIP TRANSMIT VIA ERX SY CPT-4: G8553 06/28/2015 AEROBIC WOUND CULTURE & STN CPT-4: 50041 06/03/2015 PRESCRIP TRANSMIT VIA ERX SY CPT-4: G8553 06/03/2015 ROUTINE VENIPUNCTURE CPT-4: 69185 06/01/2015 COMPREHEN METABOLIC PANEL CPT-4: 36901 06/01/2015 A1C HPLC CPT-4: 21964 06/01/2015 COMPREHEN METABOLIC PANEL CPT-4: 05605 02/25/2015 A1C HPLC CPT-4: 42956 02/25/2015 DESTRUCT PREMALG LESION (Cryosurgery) CPT-4: 00337 PROTEIN/CREAT URINE WITH RATIO CPT-4: 98304|00338 5 MICROALBUMIN QUANTITATIVE CPT-4: 12639 10/27/2014 INFLUENZA ASSAY W/OPTIC CPT-4: 62403 10/21/2014 PRESCRIP TRANSMIT VIA ERX SY CPT-4: G8553 10/06/2014 PRESCRIP TRANSMIT VIA ERX SY CPT-4: G8553 09/21/2014 PRESCRIP TRANSMIT VIA ERX SY CPT-4: G8553 09/02/2014 MICROALBUMIN QUANTITATIVE CPT-4: 02526 08/27/2014 PROTEIN/CREAT URINE WITH RATIO CPT-4: 90962|52399 4 PPPS, subseq visit CPT-4: G0439 08/10/2014 ROUTINE VENIPUNCTURE CPT-4: 29514 08/05/2014 ASSAY OF FREE THYROXINE CPT-4: 15523 08/05/2014 ASSAY THYROID STIM HORMONE CPT-4: 72028 08/05/2014 COMPREHEN METABOLIC PANEL CPT-4: 14376 08/05/2014 COMPLETE CBC W/AUTO DIFF WBC CPT-4: 94922 08/05/2014 LIPID PANEL CPT-4: 21062 08/05/2014 A1C HPLC CPT-4: 99433 08/05/2014 FLUZONE, 5ML (Medicare) CPT-4: Q2038 08/05/2014 ADMIN INFLUENZA VIRUS VAC CPT-4: G0008 08/05/2014 METHYLPREDNISOLONE 40 MG INJ CPT-4: J1030 12/16/2013 TRIAMCINOLONE ACET INJ NOS CPT-4: J3301 12/16/2013 DRAIN/INJECT JOINT/BURSA CPT-4: 89880 12/16/2013 PRESCRIP TRANSMIT VIA ERX SY CPT-4: G8553 10/09/2013 THER/PROPH/DIAG INJ SC/IM CPT-4: 62076 09/18/2013 METHYLPREDNISOLONE 40 MG INJ CPT-4: J1030 09/18/2013 TRIAMCINOLONE ACET INJ NOS CPT-4: J3301 09/18/2013 PRESCRIP TRANSMIT VIA ERX SY CPT-4: G8553 09/18/2013 PRESCRIP TRANSMIT VIA ERX SY CPT-4: G8553 08/13/2013 ROUTINE VENIPUNCTURE CPT-4: 78894 06/25/2013 ASSAY OF FREE THYROXINE CPT-4: 44428 06/25/2013 ASSAY THYROID STIM HORMONE CPT-4: 55944 06/25/2013 COMPREHEN METABOLIC PANEL CPT-4: 77674 06/25/2013 COMPLETE CBC W/AUTO DIFF WBC CPT-4: 11448 06/25/2013 LIPID PANEL CPT-4: 62655 06/25/2013 A1C GLYCOSYLATED HEMOGLOBIN TEST CPT-4: 08724 013 ROUTINE VENIPUNCTURE CPT-4: 81781 04/09/2013 COMPLETE CBC W/AUTO DIFF WBC CPT-4: 39506 04/09/2013 MYCOPLASMA ANTIBODY, IFA CPT-4: 65475K9 04/09/2013 ROUTINE VENIPUNCTURE CPT-4: 16563 02/11/2013 ASSAY OF FREE THYROXINE CPT-4: 26531 02/11/2013 ASSAY THYROID STIM HORMONE CPT-4: 55543 02/11/2013 COMPREHEN METABOLIC PANEL CPT-4: 26958 02/11/2013 COMPLETE CBC W/AUTO DIFF WBC CPT-4: 18541 02/11/2013 VITAMIN B 12 FOLIC ACID CPT-4: 33866|21229 02/11/2013 C-REACTIVE PROTEIN CPT-4: 15655 02/11/2013 A1C GLYCOSYLATED HEMOGLOBIN TEST CPT-4: 18051 013 ASSAY OF BLOOD/URIC ACID CPT-4: 70491 02/11/2013 CEFTRIAXONE SODIUM INJECTION CPT-4: J0696 01/31/2013 THER/PROPH/DIAG INJ SC/IM CPT-4: 98774 01/31/2013 THER/PROPH/DIAG INJ SC/IM CPT-4: 09643 01/31/2013 METHYLPREDNISOLONE 40 MG INJ CPT-4: J1030 01/31/2013 TRIAMCINOLONE ACET INJ NOS CPT-4: J3301 01/31/2013 ROUTINE VENIPUNCTURE CPT-4: 31281 09/19/2012 COMPREHEN METABOLIC PANEL CPT-4: 88124 09/19/2012 LIPID PANEL CPT-4: 78374 09/19/2012 A1C GLYCOSYLATED HEMOGLOBIN TEST CPT-4: 50075 012 PNEUMOCOCCAL VACC 23 OLIVIA IM CPT-4: 21482 07/10/2012 FLUZONE, 5ML (Medicare) CPT-4: Q2038 07/10/2012 ADMIN INFLUENZA VIRUS VAC CPT-4: G0008 07/10/2012 ADMIN PNEUMOCOCCAL VACCINE CPT-4: G0009 07/10/2012 ROUTINE VENIPUNCTURE CPT-4: 85596 05/06/2012 ASSAY OF FREE THYROXINE CPT-4: 43828 05/06/2012 ASSAY THYROID STIM HORMONE CPT-4: 44170 05/06/2012 COMPREHEN METABOLIC PANEL CPT-4: 85810 05/06/2012 COMPLETE CBC W/AUTO DIFF WBC CPT-4: 51377 05/06/2012 LIPID PANEL CPT-4: 10655 05/06/2012 A1C GLYCOSYLATED HEMOGLOBIN TEST CPT-4: 01467 012 IMMUNIZATION ADMIN CPT-4: 18860 02/05/2012 FLUZONE, 5ML (Medicare) CPT-4: Q2038 08/10/2011 ADMIN INFLUENZA VIRUS VAC CPT-4: G0008 08/10/2011 ROUTINE VENIPUNCTURE CPT-4: 25794 07/26/2011 ASSAY OF FREE THYROXINE CPT-4: 72952 07/26/2011 ASSAY THYROID STIM HORMONE CPT-4: 46041 07/26/2011 COMPREHEN METABOLIC PANEL CPT-4: 75190 07/26/2011 COMPLETE CBC W/AUTO DIFF WBC CPT-4: 07403 07/26/2011 LIPID PANEL CPT-4: 83293 07/26/2011 A1C GLYCOSYLATED HEMOGLOBIN TEST CPT-4: 78122 011 ASSAY OF PSA TOTAL CPT-4: 23023 07/26/2011 ROUTINE VENIPUNCTURE CPT-4: 40088 01/19/2011 ASSAY OF NATRIURETIC PEPTIDE CPT-4: 22922 01/19/2011 THER/PROPH/DIAG INJ SC/IM CPT-4: 18315 01/19/2011 CEFTRIAXONE SODIUM INJECTION CPT-4: J0696 01/19/2011 METHYLPREDNISOLONE INJECTION CPT-4: J2930 01/19/2011 THER/PROPH/DIAG INJ SC/IM CPT-4: 75029 01/19/2011 THER/PROPH/DIAG INJ SC/IM CPT-4: 77463 01/18/2011 CEFTRIAXONE SODIUM INJECTION CPT-4: J0696 01/18/2011 METHYLPREDNISOLONE INJECTION CPT-4: J2930 01/18/2011 THER/PROPH/DIAG INJ SC/IM CPT-4: 74070 01/18/2011 THER/PROPH/DIAG INJ SC/IM CPT-4: 72715 12/21/2010 TESTOSTERONE CYPIONAT 100 MG CPT-4: J1070 12/21/2010 ROUTINE VENIPUNCTURE CPT-4: 68891 12/19/2010 TESTOSTERONE TOTAL - MALE CPT-4: 02782 12/19/2010 ROUTINE VENIPUNCTURE CPT-4: 49638 12/07/2010 COMPLETE CBC W/AUTO DIFF WBC CPT-4: 04434 12/07/2010 COMPREHEN METABOLIC PANEL CPT-4: 25443 12/07/2010 LIPID PANEL CPT-4: 35276 12/07/2010 A1C GLYCOSYLATED HEMOGLOBIN TEST CPT-4: 26472 011 ASSAY OF PSA TOTAL CPT-4: 70873 12/07/2010 ROUTINE VENIPUNCTURE CPT-4: 21528 04/05/2010 PRESCRIP TRANSMIT VIA ERX SY CPT-4: G8553 04/05/2010 ROUTINE VENIPUNCTURE CPT-4: 29519 01/13/2010 METHYLPREDNISOLONE INJECTION CPT-4: J2930 12/22/2009 THER/PROPH/DIAG INJ SC/IM CPT-4: 41780 12/22/2009 THER/PROPH/DIAG INJ SC/IM CPT-4: 55534 12/22/2009 CEFTRIAXONE SODIUM INJECTION CPT-4: J0696 12/22/2009 ROUTINE VENIPUNCTURE CPT-4: 77157 12/22/2009 COMPLETE CBC W/AUTO DIFF WBC CPT-4: 10020 12/22/2009 RBC SED RATE, AUTOMATED CPT-4: 83843 12/22/2009 RPR FE/E/EN/L/M 20.1-30.0 CM CPT-4: 62197 12/22/2009 EKG FOR INITIAL PREVENT EXAM CPT-4: G0403 12/22/2009 THER/PROPH/DIAG INJ SC/IM CPT-4: 31293 12/16/2009 KETOROLAC TROMETHAMINE INJ CPT-4: J1885 12/16/2009 [...] 1: 126/68 Code: 8480-6 BMI: 30.2 Code: 50748-1 Heart Rate 1: 92 bpm Height: 6' Respiratory Rate: 22 bpm SpO2: 94% Tempera ture: 36.9 (C) / 98.5 (F) Weight: 223 lbs 08/21/2018 Blood Pressure 1: 160/70 Code: 8480-6 Heart Rate 1: 79 bpm Respiratory Rate: 20 bpm SpO2: 94% Temperature: 36.7 (C) / 98.0 (F) We ight: 226 lbs 8 oz 08/07/2018 Blood Pressure 1: 138/70 Code: 8480-6 BMI: 30.1 Code: 06667-0 Heart Rate 1: 80 bpm Height: 6' Respiratory Rate: 20 bpm SpO2: 94% Tempera ture: 36.9 (C) / 98.5 (F) Weight: 222 lbs 05/23/2018 Blood Pressure 1: 148/66 Code: 8480-6 BMI: 30.0 Code: 08254-9 Heart Rate 1: 96 bpm Height: 6' Respiratory Rate: 22 bpm SpO2: 94% Tempera ture: 37.3 (C) / 99.1 (F) Weight: 221 lbs 05/02/2018 Blood Pressure 1: 146/78 Code: 8480-6 BMI: 29.6 Code: 88539-8 Heart Rate 1: 78 bpm Height: 6' Respiratory Rate: 26 bpm SpO2: 94% Tempera ture: 35.7 (C) / 96.2 (F) Weight: 218 lbs 04/29/2018 Blood Pressure 1: 142/62 Code: 8480-6 BMI: 28.6 Code: 47532-5 Heart Rate 1: 82 bpm Height: 6' Respiratory Rate: 22 bpm SpO2: 98% Tempera ture: 36.4 (C) / 97.6 (F) Weight: 211 lbs 04/22/2018 Blood Pressure 1: 126/64 Code: 8480-6 BMI: 30.0 Code: 76873-7 Heart Rate 1: 96 bpm Height: 6' [...] 1: 144/78 Code: 8480-6 BMI: 30.7 Code: 91938-1 Heart Rate 1: 92 bpm Height: 6' Respiratory Rate: 28 bpm SpO2: 94% Tempera ture: 36.9 (C) / 98.4 (F) Weight: 226 lbs 12/28/2017 Blood Pressure 1: 136/80 Code: 8480-6 Heart Rate 1: 92 bpm Respiratory Rate: 28 bpm SpO2: 94% Temperature: 36.7 (C) / 98.1 (F) 12/21/2017 Blood Pressure 1: 146/84 Code: 8480-6 BMI: 31.1 Code: 98002-9 Heart Rate 1: 84 bpm Height: 6' [...] 1: 142/64 Code: 8480-6 BMI: 31.3 Code: 40103-7 Heart Rate 1: 98 bpm Height: 6' Respiratory Rate: 24 bpm SpO2: 94% Tempera ture: 36.4 (C) / 97.6 (F) Weight: 231 lbs 10/17/2017 Blood Pressure 1: 140/68 Code: 8480-6 BMI: 31.7 Code: 47536-5 Heart Rate 1: 88 bpm Height: 6' Respiratory Rate: 20 bpm SpO2: 94% Tempera ture: 36.8 (C) / 98.3 (F) Weight: 234 lbs 08/02/2017 Blood Pressure 1: 142/80 Code: 8480-6 BMI: 31.1 Code: 91777-5 Heart Rate 1: 86 bpm Height: 6' Respiratory Rate: 20 bpm SpO2: 90% Tempera ture: 35.9 (C) / 96.7 (F) Weight: 229 lbs 07/02/2017 Blood Pressure 1: 146/64 Code: 8480-6 BMI: 29.6 Code: 52630-6 Heart Rate 1: 96 bpm Height: 6' Respiratory Rate: 20 bpm Temperature: 36 .4 (C) / 97.6 (F) Weight: 218 lbs 05/29/2017 Blood Pressure 1: 152/68 Code: 8480-6 BMI: 31.5 Code: 83648-1 Heart Rate 1: 100 bpm Height: 6' Respiratory Rate: 20 bpm SpO2: 92% Tempera ture: 36.9 (C) / 98.4 (F) Weight: 232 lbs 02/01/2017 Blood Pressure 1: 146/64 Code: 8480-6 BMI: 30.7 Code: 17292-5 Heart Rate 1: 76 bpm Height: 6' Respiratory Rate: 20 bpm SpO2: 95% Tempera ture: 36.8 (C) / 98.2 (F) Weight: 226 lbs 01/29/2017 Blood Pressure 1: 146/78 Code: 8480-6 Heart Rate 1: 84 bpm Respiratory Rate: 20 bpm SpO2: 96% Temperature: 36.1 (C) / 97.0 (F) We ight: 226 lbs 12/21/2016 Blood Pressure 1: 126/60 Code: 8480-6 BMI: 30.8 Code: 61285-7 Heart Rate 1: 88 bpm Height: 6' Respiratory Rate: 22 bpm SpO2: 94% Tempera ture: 36.7 (C) / 98.0 (F) Weight: 227 lbs 12/14/2016 Blood Pressure 1: 126/70 Code: 8480-6 BMI: 29.8 Code: 61034-6 Heart Rate 1: 92 bpm Height: 6' Respiratory Rate: 22 bpm SpO2: 93% Tempera ture: 36.8 (C) / 98.2 (F) Weight: 220 lbs 11/14/2016 Blood Pressure 1: 128/62 Code: 8480-6 Heart Rate 1: 100 bpm Respiratory Rate: 20 bpm SpO2: 96% Temperature: 36.6 (C) / 97.8 (F) We ight: 220 lbs 10/31/2016 Blood Pressure 1: 142/60 Code: 8480-6 BMI: 30.1 Code: 82398-3 Heart Rate 1: 112 bpm Height: 6' Respiratory Rate: 24 bpm SpO2: 93% Tempera ture: 37.1 (C) / 98.7 (F) Weight: 222 lbs 10/03/2016 Blood Pressure 1: 136/78 Code: 8480-6 Heart Rate 1: 106 bpm Respiratory Rate: 24 bpm SpO2: 93% Temperature: 36.6 (C) / 97.8 (F) We ight: 221 lbs 09/04/2016 Blood Pressure 1: 112/44 Code: 8480-6 BMI: 30.1 Code: 87211-5 Heart Rate 1: 90 bpm Height: 6' Respiratory Rate: 20 bpm SpO2: 93% Tempera ture: 36.6 (C) / 97.9 (F) Weight: 222 lbs 08/22/2016 Blood Pressure 1: 142/68 Code: 8480-6 BMI: 30.4 Code: 82207-6 Heart Rate 1: 100 bpm Height: 6' Respiratory Rate: 24 bpm SpO2: 93% Tempera ture: 36.7 (C) / 98.1 (F) Weight: 224 lbs 08/10/2016 Blood Pressure 1: 134/60 Code: 8480-6 BMI: 30.2 Code: 40199-8 Heart Rate 1: 76 bpm Height: 6' [...] 1: 122/72 Code: 8480-6 BMI: 30.7 Code: 47371-4 Heart Rate 1: 96 bpm Height: 6' Respiratory Rate: 22 bpm SpO2: 96% Tempera ture: 35.9 (C) / 96.7 (F) Weight: 226 lbs 04/03/2016 Blood Pressure 1: 146/64 Code: 8480-6 BMI: 30.8 Code: 74586-5 Heart Rate 1: 76 bpm Height: 6' Respiratory Rate: 20 bpm Temperature: 36 .8 (C) / 98.2 (F) Weight: 227 lbs 03/02/2016 Blood Pressure 1: 148/60 Code: 8480-6 BMI: 31.1 Code: 69953-1 Heart Rate 1: 80 bpm Height: 6' Respiratory Rate: 22 bpm SpO2: 94% Tempera ture: 36.6 (C) / 97.8 (F) Weight: 229 lbs 02/17/2016 Blood Pressure 1: 132/60 Code: 8480-6 BMI: 31.3 Code: 06967-0 Heart Rate 1: 80 bpm Height: 6' Respiratory Rate: 20 bpm Temperature: 36 .9 (C) / 98.4 (F) Weight: 231 lbs 02/14/2016 Blood Pressure 1: 126/70 Code: 8480-6 BMI: 31.3 Code: 12885-9 Heart Rate 1: 80 bpm Height: 6' Respiratory Rate: 24 bpm SpO2: 95% Tempera ture: 36.9 (C) / 98.5 (F) Weight: 231 lbs 01/31/2016 Blood Pressure 1: 136/60 Code: 8480-6 Heart Rate 1: 76 bpm Respiratory Rate: 22 bpm Temperature: 37.0 (C) / 98.6 (F) Weight: 230 lbs 12/30/2015 Blood Pressure 1: 128/58 Code: 8480-6 BMI: 31.2 Code: 88273-3 Heart Rate 1: 80 bpm Height: 6' Respiratory Rate: 20 bpm Temperature: 36 .8 (C) / 98.2 (F) Weight: 230 lbs 12/16/2015 Blood Pressure 1: 122/60 Code: 8480-6 BMI: 32.0 Code: 53445-2 Heart Rate 1: 84 bpm Height: 6' Respiratory Rate: 24 bpm Temperature: 37 .1 (C) / 98.7 (F) Weight: 236 lbs 12/06/2015 Blood Pressure 1: 162/74 Code: 8480-6 BMI: 32.5 Code: 01834-6 Heart Rate 1: 90 bpm Height: 6' Respiratory Rate: 20 bpm SpO2: 96% Tempera ture: 36.4 (C) / 97.6 (F) Weight: 240 lbs 11/15/2015 Blood Pressure 1: 166/80 Code: 8480-6 BMI: 32.4 Code: 86434-4 Heart Rate 1: 92 bpm Height: 6' Respiratory Rate: 28 bpm Temperature: 36 .5 (C) / 97.7 (F) Weight: 239 lbs 10/05/2015 Blood Pressure 1: 146/76 Code: 8480-6 BMI: 32.4 Code: 37480-9 Heart Rate 1: 88 bpm Height: 6' Respiratory Rate: 28 bpm Temperature: 37 .1 (C) / 98.7 (F) Weight: 239 lbs 07/22/2015 Blood Pressure 1: 144/68 Code: 8480-6 BMI: 31.9 Code: 64282-5 Heart Rate 1: 88 bpm Height: 6' [...] 1: 142/64 Code: 8480-6 BMI: 32.1 Code: 85605-1 Heart Rate 1: 80 bpm Height: 6' Respiratory Rate: 18 bpm Temperature: 36 .4 (C) / 97.6 (F) Weight: 237 lbs 06/07/2015 Blood Pressure 1: 164/58 Code: 8480-6 BMI: 32.1 Code: 09942-1 Heart Rate 1: 88 bpm Height: 6' Respiratory Rate: 20 bpm Temperature: 36 .6 (C) / 97.9 (F) Weight: 237 lbs 06/03/2015 Blood Pressure 1: 152/64 Code: 8480-6 BMI: 32.1 Code: 03838-3 Heart Rate 1: 96 bpm Height: 6' Respiratory Rate: 20 bpm Temperature: 37 .4 (C) / 99.3 (F) Weight: 237 lbs 06/01/2015 Blood Pressure 1: 136/70 Code: 8480-6 BMI: 31.7 Code: 61944-1 Heart Rate 1: 72 bpm Height: 6' Respiratory Rate: 22 bpm SpO2: 94% Tempera ture: 36.6 (C) / 97.9 (F) Weight: 234 lbs 02/25/2015 Blood Pressure 1: 146/80 Code: 8480-6 BMI: 32.4 Code: 95986-6 Heart Rate 1: 84 bpm Height: 6' Respiratory Rate: 28 bpm Temperature: 36 .7 (C) / 98.0 (F) Weight: 239 lbs 10/27/2014 Blood Pressure 1: 168/70 Code: 8480-6 BMI: 32.0 Code: 40459-4 Heart Rate 1: 80 bpm Height: 6' Respiratory Rate: 30 bpm SpO2: 98% Tempera ture: 36.4 (C) / 97.6 (F) Weight: 236 lbs 10/21/2014 Blood Pressure 1: 152/58 Code: 8480-6 BMI: 32.1 Code: 69092-3 Heart Rate 1: 78 bpm Height: 6' Respiratory Rate: 20 bpm Temperature: 37 .8 (C) / 100.1 (F) Weight: 237 lbs 10/06/2014 Blood Pressure 1: 132/64 Code: 8480-6 BMI: 32.5 Code: 63470-4 Heart Rate 1: 88 bpm Height: 6' Respiratory Rate: 32 bpm SpO2: 94% Tempera ture: 36.8 (C) / 98.2 (F) Weight: 240 lbs 09/21/2014 Blood Pressure 1: 134/68 Code: 8480-6 BMI: 32.4 Code: 38153-1 Heart Rate 1: 96 bpm Height: 6' Respiratory Rate: 30 bpm Temperature: 36 .7 (C) / 98.1 (F) Weight: 239 lbs 09/08/2014 Blood Pressure 1: 128/74 Code: 8480-6 BMI: 32.4 Code: 31908-0 Heart Rate 1: 82 bpm Height: 6' Respiratory Rate: 28 bpm SpO2: 93% Tempera ture: 36.6 (C) / 97.8 (F) Weight: 239 lbs 09/02/2014 Blood Pressure 1: 164/78 Code: 8480-6 Heart Rate 1: 86 bpm Respiratory Rate: 22 bpm SpO2: 96% Temperature: 36.1 (C) / 97.0 (F) We ight: 239 lbs 08/10/2014 Blood Pressure 1: 152/60 Code: 8480-6 BMI: 32.8 Code: 83581-3 Heart Rate 1: 80 bpm Height: 6' [...] 1: 146/80 Code: 8480-6 BMI: 33.9 Code: 52222-3 Heart Rate 1: 80 bpm Height: 6' [...] 1: 148/78 Code: 8480-6 BMI: 30.5 Code: 56852-7 Heart Rate 1: 84 bpm Height: 6' Respiratory Rate: 28 bpm SpO2: 97% Tempera ture: 36.4 (C) / 97.5 (F) Weight: 225 lbs 08/06/2013 Blood Pressure 1: 158/70 Code: 8480-6 Heart Rate 1: 110 bpm Respiratory Rate: 22 bpm SpO2: 88% Temperature: 39.7 (C) / 103.4 (F) W eight: 07/16/2013 Blood Pressure 1: 148/82 Code: 8480-6 BMI: 31.9 Code: 61049-7 Heart Rate 1: 80 bpm Height: 6' Respiratory Rate: 20 bpm Temperature: 36 .6 (C) / 97.9 (F) Weight: 235 lbs 04/09/2013 Blood Pressure 1: 142/78 Code: 8480-6 BMI: 31.5 Code: 43571-4 Heart Rate 1: 88 bpm Height: 6' Respiratory Rate: 32 bpm SpO2: 95% Tempera ture: 37.0 (C) / 98.6 (F) Weight: 232 lbs 02/11/2013 Blood Pressure 1: 146/70 Code: 8480-6 Heart Rate 1: 88 bpm Respiratory Rate: 20 bpm Temperature: 36.8 (C) / 98.3 (F) Weight: 230 lbs 01/31/2013 Blood Pressure 1: 128/70 Code: 8480-6 BMI: 31.6 Code: 27384-1 Heart Rate 1: 84 bpm Height: 6' Respiratory Rate: 24 bpm SpO2: 92% Tempera ture: 36.7 (C) / 98.0 (F) Weight: 233 lbs 01/20/2013 Blood Pressure 1: 148/64 Code: 8480-6 BMI: 31.6 Code: 86897-4 Heart Rate 1: 68 bpm Height: 6' Temperature: 36.1 (C) / 97.0 (F) Weight: 233 lbs 12/19/2012 Blood Pressure 1: 128/68 Code: 8480-6 BMI: 32.0 Code: 35570-9 Heart Rate 1: 64 bpm Height: 6' Temperature: 36.7 (C) / 98.0 (F) Weight: 236 lbs 10/21/2012 Blood Pressure 1: 142/64 Code: 8480-6 BMI: 30.9 Code: 60099-2 Heart Rate 1: 74 bpm Height: 6' Temperature: 36.2 (C) / 97.1 (F) Weight: 228 lbs 09/18/2012 Blood Pressure 1: 126/60 Code: 8480-6 BMI: 31.3 Code: 22521-2 Heart Rate 1: 88 bpm Height: 6' Respiratory Rate: 20 bpm Temperature: 36 .5 (C) / 97.7 (F) Weight: 231 lbs 08/28/2012 Blood Pressure 1: 132/68 Code: 8480-6 BMI: 31.5 Code: 06682-4 Heart Rate 1: 92 bpm Height: 6' Respiratory Rate: 30 bpm SpO2: 94% Tempera ture: 37.1 (C) / 98.7 (F) Weight: 232 lbs 07/10/2012 Blood Pressure 1: 118/70 Code: 8480-6 BMI: 30.5 Code: 23753-9 Heart Rate 1: 72 bpm Height: 6' Respiratory Rate: 24 bpm SpO2: 96% Tempera ture: 36.7 (C) / 98.0 (F) Weight: 225 lbs 05/09/2012 Blood Pressure 1: 124/68 Code: 8480-6 BMI: 29.8 Code: 87774-2 Heart Rate 1: 72 bpm Height: 6' Respiratory Rate: 20 bpm Temperature: 36 .8 (C) / 98.2 (F) Weight: 220 lbs 10/02/2011 Blood Pressure 1: 140/82 Code: 8480-6 BMI: 30.7 Code: 82731-4 Heart Rate 1: 68 bpm Height: 6' Temperature: 36.7 (C) / 98.0 (F) Weight: 226 lbs 08/07/2011 Blood Pressure 1: 122/68 Code: 8480-6 BMI: 30.5 Code: 74762-5 Heart Rate 1: 72 bpm Height: 6' [...] 1: 140/78 Code: 8480-6 BMI: 31.9 Code: 86013-9 Heart Rate 1: 84 bpm Height: 6' Temperature: 36.6 (C) / 97.8 (F) Weight: 235 lbs 12/22/2009 Blood Pressure 1: 140/74 Code: 8480-6 BMI: 31.9 Code: 80995-2 Heart Rate 1: 94 bpm Height: 6' SpO2: 92% Temperature: 35.7 (C) / 96.2 (F) Weight: 235 lbs 12/13/2009 Blood Pressure 1: 146/80 Code: 8480-6 BMI: 33.0 Code: 72594-8 Heart Rate 1: 86 bpm Height: 6' [...] shot follow up 05/08/2019 follow up 04/07/2019 [facility] dizziness 03/24/2019 dizziness 03/21/2019 sore throat 03/13/2019 Patient finished zit hromax last night and has one dose of prednisone left follow up 03/10/2019 ER fwup---patient cu rrently taking zithromax, prednisone and breathing treatments every two hours spasms/spasticity 02/26/2019 follow up 02/13/2019 follow up 01/14/2019 [facility] follow up 12/25/2018 cough 12/09/2018 here for [...] constantly with her. 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 follow up 05/29/2017 Discuss Low Back [...] nightly. Patient has just been discharged from [place] with Pneumonia. Currently on Levaquin once daily. [...] fwup follow up 03/13/[address] [facility] on medication education for insulin [...] 02/25/2015 3mo fwup follow up 10/27/2014 [facility] cough 10/21/2014 follow up 10/06/2014 follow up 09/21/2014 [facility] follow up 09/08/2014 [facility] cough 09/02/2014 well man exam (65+ years) 08/10/2014 lab draw 08/05/2014 flu shot follow up 05/05/2014 6wk fwup follow up 03/24/2014 2wk up shortness of breath 03/10/2014 shoulder pain 12/16/2013 Request back brace w hen working/lifting---chiropractor had recommended he get one to wear shortness of breath 10/09/2013 cough 09/18/2013 follow up 08/13/2013 [facility] cough 08/06/2013 follow up 07/16/2013 [...] 12/13/2009 Encounters Encounter Performer Location Codes Date ([id number]) OFFICE/OUTPATIENT VISIT EST Diagnosis: Chronic obstructive pulmonary disease with (acute) exacerbation[ICD10: J44.1] Lita BARAKAT [employer] [facility] CPT- 4: 88954 12/25/2019 ([id number]) OFFICE/OUTPATIENT VISIT EST Diagnosis: Noncompliance with diabetes treatment[ICD10: Z91.19] Diagnosis: Insomnia[ICD10: G47.00] Diagnosis: Pain in right knee[ICD10: M25.561] Lita Barakat [facility] CPT-4: 52211 12/22/2019 ([id number]) OFFICE/OUTPATIENT VISIT EST Diagnosis: Chronic respiratory failure with hypercapnia[ICD10: J96.12] Diagnosis: Chronic airway obstruction, not elsewhere classified[ICD10: J44.9] Diagnosis: Basal cell carcinoma, face[ICD10: C44.310] Lita ALYLINE Ashley BARAKAT [employer] [facility] CPT-4: 67972 11/12/2019 ([id number]) OFFICE/OUTPATIENT VISIT EST Diagnosis: Chronic obstructive pulmonary disease, unspecified[ICD10: J44.9] Diagnosis: Right thyroid nodule[ICD10: E04.1] Lita Gasper KEVIN GONZALES Ashley BARAKAT [employer] CPT-4: 48593 09/11/2019 ([id number]) OFFICE/OUTPATIENT VISIT EST Diagnosis: Chronic bronchitis[ICD10: J42] 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] Diagnosis: FLU VACCINE[ICD10: Z23] Lita HERRMANNQUELINE Ashley PABLO [employer] [facility] CPT-4: 29297 08/07/2019 ([id number]) OFFICE/OUTPATIENT VISIT EST Diagnosis: Chronic obstructive pulmonary disease with (acute) exacerbation[ICD10: J44.1] Autumn ALYLINE Ashley BARAKAT [employer] [facility] CPT- 4: 08245 07/14/2019 ([id number]) OFFICE/OUTPATIENT VISIT EST Diagnosis: Primary insomnia[ICD10: F51.01] Diagnosis: Dyspepsia and other specified disorders of function of stomach[ICD10: K31.89] Lita CRAWFORD Ashley BARAKAT [employer] CPT-4: 60955 07/01/2019 ([id number]) OFFICE/OUTPATIENT VISIT EST Diagnosis: Epigastric pain[ICD10: R10.13] Diagnosis: Nausea[ICD10: R11.0] Diagnosis: Weight loss[ICD10: R63.4] Lita AREVALO DO [facility] CPT-4: 74406 06/24/2019 ([id number]) OFFICE/OUTPATIENT VISIT EST Diagnosis: Chronic obstructive pulmonary disease, unspecified[ICD10: J44.9] Diagnosis: Chronic insomnia[ICD10: F51.04] Diagnosis: Anemia[ICD10: D64.9] Diagnosis: Diplopia[ICD10: H53.2] Diagnosis: [place][ICD10: F30.9] Lita BARAKAT DO [facility] CPT-4: 04649 06/17/2019 ([id number]) NURSE/OUTPATIENT VISIT EST Diagnosis: Vitamin B12 deficiency anemia, unspecified[ICD10: D51.9] Lita BARAKAT DO [facility] CPT-4: 33336 06/10/2019 ([id number]) NURSE/OUTPATIENT VISIT EST Diagnosis: Vitamin B12 deficiency anemia, unspecified[ICD10: D51.9] Lita BARAKAT DO [facility] CPT-4: 53970 06/02/2019 ([id number]) NURSE/OUTPATIENT VISIT EST Diagnosis: Vitamin B12 deficiency anemia, unspecified[ICD10: D51.9] Lita BARAKAT DO [facility] CPT-4: 40120 05/27/2019 ([id number]) NURSE/OUTPATIENT VISIT EST Diagnosis: Vitamin B12 deficiency anemia, unspecified[ICD10: D51.9] Lita BARAKAT DO [facility] CPT-4: 53000 05/12/2019 ([id number]) OFFICE/OUTPATIENT VISIT EST Diagnosis: Restless legs syndrome[ICD10: G25.81] Diagnosis: Primary insomnia[ICD10: F51.01] Diagnosis: Anemia, unspecified[ICD10: D64.9] Diagnosis: Type 2 diabetes mellitus with hyperglycemia[ICD10: E11.65] Diagnosis: Vitamin D deficiency, unspecified[ICD10: E55.9] Litacarol BARAKAT DO [facility] CPT-4: 74139 05/08/2019 ([id number]) OFFICE/OUTPATIENT VISIT EST Diagnosis: Pain in right knee[ICD10: M25.561] Diagnosis: Restless legs syndrome[ICD10: G25.81] Diagnosis: Insomnia, unspecified[ICD10: G47.00] Lita BARAKAT DO [facility] CPT-4: 62848 04/07/2019 ([id number]) NO CHARGE Diagnosis: Chronic obstructive pulmonary disease with (acute) exacerbation[ICD10: J44.1] Diagnosis: Dizziness and giddiness[ICD10: R42] Diagnosis: Generalized anxiety disorder[ICD10: F41.1] Autumn BARAKAT DO [facility] CPT-4: 75961 03/24/2019 ([id number]) OFFICE/OUTPATIENT VISIT EST Diagnosis: Chronic obstructive pulmonary disease with (acute) exacerbation[ICD10: J44.1] Diagnosis: Dizziness and giddiness[ICD10: R42] Autumn BARAKAT DO [facility] CPT-4: 39350 03/21/2019 ([id number]) OFFICE/OUTPATIENT VISIT EST Diagnosis: Candidal stomatitis[ICD10: B37.0] Lita BARAKAT [facility] CPT-4: 89275 03/13/2019 ([id number]) OFFICE/OUTPATIENT VISIT EST Diagnosis: Chronic obstructive pulmonary disease with acute lower respiratory infection[ICD10: J44.0] Diagnosis: Restless legs syndrome[ICD10: G25.81] Lita Archerelvabev TADEO MARC Ashley BARAKAT DO [facility] CPT-4: 44756 03/10/2019 ([id number]) OFFICE/OUTPATIENT VISIT EST Diagnosis: Restless legs syndrome[ICD10: G25.81] Lita Jasminelvabev TADEO MARC Ashley ARCHERNDBEV JOHNSON [facility] CPT-4: 71023 02/26/2019 ([id number]) OFFICE/OUTPATIENT VISIT EST Diagnosis: Primary insomnia[ICD10: F51.01] Diagnosis: Chronic obstructive pulmonary disease, unspecified[ICD10: J44.9] Lita Jasminbetty CRAWFORD Ashley BARAKAT DO [facility] CPT-4: 82565 02/13/2019 ([id number]) OFFICE/OUTPATIENT VISIT EST Diagnosis: Chronic obstructive pulmonary disease, unspecified[ICD10: J44.9] Diagnosis: Chronic respiratory failure with hypoxia[ICD10: J96.11] Diagnosis: Chronic respiratory failure with hypercapnia[ICD10: J96.12] Lita Jasminbetty HERRMANNLITA Ashley BARAKAT [facility] CPT-4: 81310 01/14/2019 ([id number]) OFFICE/OUTPATIENT VISIT EST Diagnosis: Chronic respiratory failure with hypoxia[ICD10: J96.11] Diagnosis: Patient's noncompliance with other medical treatment and regimen[ICD10: Z91.19] Diagnosis: Chronic obstructive pulmonary disease with (acute) exacerbation[ICD10: J44.1] Lita CRAWFORD DonovanFerdinand GASPER [facility] CPT- 4: 00737 12/25/2018 ([id number]) OFFICE/OUTPATIENT VISIT EST Diagnosis: Essential (primary) hypertension[ICD10: I10] Diagnosis: Type 2 diabetes mellitus with hyperglycemia[ICD10: E11.65] Diagnosis: Hypothyroidism, unspecified[ICD10: E03.9] Diagnosis: Hyperlipidemia, unspecified[ICD10: E78.5] Diagnosis: Acute recurrent maxillary sinusitis[ICD10: J01.01] Ines HERRMANNQUELINE Ashley BARAKAT [facility] CPT-4: 55189 12/09/2018 ([id number]) OFFICE/OUTPATIENT VISIT EST Diagnosis: Candidal stomatitis[ICD10: B37.0] Lita Segura DonovanFerdinand [employer] [facility] CPT-4: 36181 12/05/2018 ([id number]) OFFICE/OUTPATIENT VISIT EST Diagnosis: Acute recurrent sinusitis, unspecified[ICD10: J01.91] Diagnosis: Pain in right knee[ICD10: M25.561] Lita GONZAELS Ashley BARAKAT [employer] [facility] CPT-4: 44909 10/23/2018 ([id number]) OFFICE/OUTPATIENT VISIT EST Diagnosis: Restless legs syndrome[ICD10: G25.81] Diagnosis: Basal cell carcinoma of skin of scalp and neck[ICD10: C44.41] Lita CRAWFORD DonovanFerdinand GASPER [facility] CPT-4: 71951 08/21/2018 ([id number]) OFFICE/OUTPATIENT VISIT EST Diagnosis: Chronic obstructive pulmonary disease with acute lower respiratory infection[ICD10: J44.0] Diagnosis: Restless legs syndrome[ICD10: G25.81] Lita BARAKAT DO [facility] CPT-4: 18553 08/07/2018 ([id number]) OFFICE/OUTPATIENT VISIT EST Diagnosis: Chronic obstructive pulmonary disease with acute lower respiratory infection[ICD10: J44.0] Lita BARAKAT DO [facility] CPT-4: 78848 05/23/2018 ([id number]) OFFICE/OUTPATIENT VISIT EST Diagnosis: Candidal stomatitis[ICD10: B37.0] Lita BARAKAT DO [facility] CPT-4: 48210 05/02/2018 ([id number]) OFFICE/OUTPATIENT VISIT EST Diagnosis: Candidal stomatitis[ICD10: B37.0] Diagnosis: Other retention of urine[ICD10: R33.8] Diagnosis: Chronic obstructive pulmonary disease with acute lower respiratory infection[ICD10: J44.0] Autumn BARAKAT DO [facility] CPT-4: 11813 04/29/2018 ([id number]) OFFICE/OUTPATIENT VISIT EST Diagnosis: Chronic obstructive pulmonary disease with acute lower respiratory infection[ICD10: J44.0] Lita BARAKAT DO [facility] CPT-4: 56586 04/22/2018 ([id number]) OFFICE/OUTPATIENT VISIT EST Diagnosis: Unilateral primary osteoarthritis, right knee[ICD10: M17.11] Diagnosis: Squamous cell carcinoma of skin, unspecified[ICD10: C44.92] Lita BARAKAT DO [facility] CPT-4: 95264 01/28/2018 ([id number]) OFFICE/OUTPATIENT VISIT EST Diagnosis: Pain in right knee[ICD10: M25.561] Diagnosis: 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] Lita BARAKAT DO [facility] CPT-4: 63787 01/23/2018 ([id number]) OFFICE/OUTPATIENT VISIT EST Diagnosis: Urinary tract infection, site not specified[ICD10: N39.0] Diagnosis: Chronic obstructive pulmonary disease with acute lower respiratory infection[ICD10: J44.0] Lita BARAKAT DO [facility] CPT-4: 27033 01/02/2018 ([id number]) OFFICE/OUTPATIENT VISIT EST Diagnosis: Chronic obstructive pulmonary disease with (acute) exacerbation[ICD10: J44.1] Autumn BARAKAT DO [facility] CPT- 4: 91753 12/28/2017 ([id number]) OFFICE/OUTPATIENT VISIT EST Diagnosis: Acute bronchitis, unspecified[ICD10: J20.9] Autumn BARAKAT DO [facility] CPT-4: 89572 12/21/2017 ([id number]) OFFICE/OUTPATIENT VISIT EST Diagnosis: Chronic obstructive pulmonary disease with acute lower respiratory infection[ICD10: J44.0] Diagnosis: Pain in right knee[ICD10: M25.561] Autumn BARAKAT DO [facility] CPT-4: 05280 12/17/2017 ([id number]) OFFICE/OUTPATIENT VISIT EST Diagnosis: Laceration without foreign body of right hand, sequela[ICD10: S61.411S] Diagnosis: Restless legs syndrome[ICD10: G25.81] Lita BARAKAT DO [facility] CPT-4: 17907 10/17/2017 OFFICE/OUTPATIENT VISIT EST Diagnosis: Chronic obstructive pulmonary disease with acute lower respiratory infection[ICD10: J44.0] Autumn BARAKAT DO [facility] CPT-4: 14584 08/02/2017 ([id number]) OFFICE/OUTPATIENT VISIT EST Diagnosis: PNEUMOCOCCAL VACCINE[ICD10: Z23] Lita BARAKAT DO [facility] CPT-4: 54127 07/24/2017 OFFICE/OUTPATIENT VISIT EST Diagnosis: Chronic obstructive pulmonary disease with (acute) exacerbation[ICD10: J44.1] Autumn BARAKAT DO [facility] CPT- 4: 97915 07/02/2017 OFFICE/OUTPATIENT VISIT EST Diagnosis: Low back pain[ICD10: M54.5] Ruchi De Los Santos RENDER [facility] CPT-4: 31716 05/29/2017 ([id number]) OFFICE/OUTPATIENT VISIT EST Diagnosis: Essential (primary) hypertension[ICD10: I10] Diagnosis: Hypothyroidism, unspecified[ICD10: E03.9] Diagnosis: Dizziness and giddiness[ICD10: R42] Diagnosis: Other abnormality of red blood cells[ICD10: R71.8] Diagnosis: Contracture of muscle, unspecified site[ICD10: M62.40] Lita Jasminelvabev LITA DonovanFerdinand GASPER [facility] CPT-4: 49020 04/17/2017 OFFICE/OUTPATIENT VISIT EST Diagnosis: Pain in left shoulder[ICD10: M25.512] Ruchi Chanel TRAN DonovanFerdinand [facility] CPT-4: 92354 01/29/2017 ([id number]) OFFICE/OUTPATIENT VISIT EST Diagnosis: Anemia, unspecified[ICD10: D64.9] Lita Jasminbetty Segura DonovanFerdinand [facility] CPT-4: 33256 12/27/2016 ([id number]) OFFICE/OUTPATIENT VISIT EST Diagnosis: Other fatigue[ICD10: R53.83] Diagnosis: Other iron deficiency anemias[ICD10: D50.8] Lita Barakat LITA DonovanFerdinand [facility] CPT-4: 67434 12/21/2016 ([id number]) OFFICE/OUTPATIENT VISIT EST Diagnosis: Anemia, unspecified[ICD10: D64.9] Diagnosis: Other fatigue[ICD10: R53.83] Diagnosis: Restless legs syndrome[ICD10: G25.81] Lita Jasminbetty TRAN DonovanFerdinand [facility] CPT-4: 37641 12/14/2016 ([id number]) OFFICE/OUTPATIENT VISIT EST Diagnosis: Anemia, unspecified[ICD10: D64.9] Diagnosis: Other abnormality of red blood cells[ICD10: R71.8] Lita Funezbev LITA DonovanFerdinand [facility] CPT-4: 87192 12/12/2016 ([id number]) OFFICE/OUTPATIENT VISIT EST Diagnosis: Pneumonia, unspecified organism[ICD10: J18.9] Diagnosis: Restless legs syndrome[ICD10: G25.81] Magda HERRMANNONIEL MARC Ashley BARAKAT [facility] CPT-4: 63147 11/14/2016 ([id number]) OFFICE/OUTPATIENT VISIT EST Diagnosis: Candidal stomatitis[ICD10: B37.0] Lita Jasminelvabev BARAKAT [facility] CPT-4: 59921 10/31/2016 ([id number]) OFFICE/OUTPATIENT VISIT EST Diagnosis: Acute upper respiratory infection, unspecified[ICD10: J06.9] Diagnosis: Personal history of pneumonia (recurrent)[ICD10: Z87.01] Magda ALYLINE sAhley BARAKAT [facility] CPT-4: 26279 10/03/2016 ([id number]) OFFICE/OUTPATIENT VISIT EST Diagnosis: Restless legs syndrome[ICD10: G25.81] Diagnosis: Insomnia, unspecified[ICD10: G47.00] Magda ALY JESSICA Ashley [facility] CPT-4: 76249 09/04/2016 ([id number]) OFFICE/OUTPATIENT VISIT EST Diagnosis: Restless legs syndrome[ICD10: G25.81] Diagnosis: Primary insomnia[ICD10: F51.01] Lita ALYLINE Ashley BARAKAT [facility] CPT-4: 81041 08/10/2016 OFFICE/OUTPATIENT VISIT EST Diagnosis: Toxic gastroenteritis and colitis[ICD10: K52.1] Diagnosis: Dizziness and giddiness[ICD10: R42] Diagnosis: Headache[ICD10: R51] Diagnosis: Restless legs syndrome[ICD10: G25.81] Lita Jasminbetty PIEDRA MARC Ashley BARAKAT [facility] CPT-4: 60686 07/06/2016 ([id number]) OFFICE/OUTPATIENT VISIT EST Diagnosis: Chest pain, unspecified[ICD10: R07.9] Diagnosis: Dyspnea, unspecified[ICD10: R06.00] Magda HERRMANNTANA CONDE Ashley BARAKAT [facility] CPT-4: 40287 06/22/2016 ([id number]) OFFICE/OUTPATIENT VISIT EST 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] Diagnosis: PNEUMOCOCCAL VACCINE[ICD10: Z23] Diagnosis: FLU VACCINE[ICD10: Z23] Lita [facility] CPT-4: 54311 06/13/2016 ([id number]) OFFICE/OUTPATIENT VISIT EST Diagnosis: Chest pain, unspecified[ICD10: R07.9] Diagnosis: Other forms of dyspnea[ICD10: R06.09] Diagnosis: Shortness of breath[ICD10: R06.02] Diagnosis: Other fatigue[ICD10: R53.83] Magda BARAKAT [facility] CPT-4: 80038 06/01/2016 ([id number]) OFFICE/OUTPATIENT VISIT EST Diagnosis: Unspecified hearing loss, left ear[ICD10: H91.92] Diagnosis: Other specified disorders of Eustachian tube, left ear[ICD10: H69.82] Magda [facility] CPT-4: 60311 11/2015 ([id number]) OFFICE/OUTPATIENT VISIT EST Diagnosis: Impacted cerumen, bilateral[ICD10: H61.23] Diagnosis: DM W/O COMPLICATION TYPE I, 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: E10.9] Diagnosis: Generalized anxiety disorder[ICD10: F41.1] Lita [facility] CPT-4: 13771 04/03/2016 ([id number]) OFFICE/OUTPATIENT VISIT EST Diagnosis: 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] Lita [facility] CPT - 4: 26371 03/13/2016 ([id number]) OFFICE/OUTPATIENT VISIT EST Diagnosis: Type 2 diabetes mellitus with hyperglycemia[ICD10: E11.65] Diagnosis: Hyperlipidemia, unspecified[ICD10: E78.5] Diagnosis: Essential (primary) hypertension[ICD10: I10] Diagnosis: Chronic obstructive pulmonary disease, unspecified[ICD10: J44.9] Diagnosis: Testicular hypofunction[ICD10: E29.1] Diagnosis: Male erectile dysfunction, unspecified[ICD10: N52.9] Diagnosis: Anemia, unspecified[ICD10: D64.9] Lita HERRMANNQUELIN Daja [facility] CPT-4: 70963 03/06/2016 ([id number]) OFFICE/OUTPATIENT VISIT EST Diagnosis: Type 2 diabetes mellitus with hyperglycemia[ICD10: E11.65] Diagnosis: Hyperlipidemia, unspecified[ICD10: E78.5] Diagnosis: Chronic obstructive pulmonary disease, unspecified[ICD10: J44.9] Diagnosis: Male erectile dysfunction, unspecified[ICD10: N52.9] Lita BARAKAT [facility] CPT-4: 58036 03/02/2016 ([id number]) OFFICE/OUTPATIENT VISIT EST Diagnosis: Pain in right foot[ICD10: M79.671] Magda BARAKAT [facility] CPT-4: 94093 02/14/2016 OFFICE/OUTPATIENT VISIT EST Diagnosis: Generalized anxiety disorder[ICD10: F41.1] Lita BARAKAT [facility] CPT-4: 31562 01/31/2016 ([id number]) OFFICE/OUTPATIENT VISIT EST Diagnosis: Generalized anxiety disorder[ICD10: F41.1] Lita BARAKAT [facility] CPT-4: 94311 12/30/2015 ([id number]) OFFICE/OUTPATIENT VISIT EST Diagnosis: Localized swelling, mass and lump, neck[ICD10: R22.1] Lita BARAKAT [facility] CPT-4: 59477 12/16/2015 OFFICE/OUTPATIENT VISIT EST Diagnosis: Localized enlarged lymph nodes[ICD10: R59.0] Diagnosis: Otalgia, left ear[ICD10: H92.02] Stephanie BARAKAT [facility] CPT-4: 13843 12/06/2015 OFFICE/OUTPATIENT VISIT EST Diagnosis: Localized enlarged lymph nodes[ICD10: R59.0] Diagnosis: Squamous cell carcinoma of skin, unspecified[ICD10: C44.92] Diagnosis: Actinic keratosis[ICD10: L57.0] Stephanie BARAKAT DO [facility] CPT-4: 44956 11/15/2015 OFFICE/OUTPATIENT VISIT EST Diagnosis: Cellulitis of left lower limb[ICD10: L03.116] Diagnosis: Encounter for examination and observation for other specified reasons[ICD10: Z04.8] Diagnosis: Chronic obstructive pulmonary disease, unspecified[ICD10: J44.9] Stephanie BARAKAT DO [facility] CPT-4: 39336 07/22/2015 OFFICE/OUTPATIENT VISIT EST Diagnosis: Other specified joint disorders, left knee[ICD10: M25.862] Diagnosis: Cellulitis of left lower limb[ICD10: L03.116] Diagnosis: Other fatigue[ICD10: R53.83] Diagnosis: Hyperlipidemia, unspecified[ICD10: E78.5] Stephanie BARAKAT DO [facility] CPT-4: 66011 07/01/2015 OFFICE/OUTPATIENT VISIT EST Diagnosis: Pain in left knee[ICD10: M25.562] Diagnosis: Cellulitis of left lower limb[ICD10: L03.116] Diagnosis: Other specified joint disorders, left knee[ICD10: M25.862] Stephanie BARAKAT DO [facility] CPT-4: 13770 06/28/2015 OFFICE/OUTPATIENT VISIT EST Diagnosis: PREPATELLAR BURSITIS[ICD9: 726.65] Diagnosis: Cellulitis of knee, left[ICD9: 682.6] Stephanie BARAKAT [facility] CPT-4: 67182 06/09/2015 ([id number]) OFFICE/OUTPATIENT VISIT EST Diagnosis: PREPATELLAR BURSITIS[ICD9: 726.65] Diagnosis: Cellulitis of knee, left[ICD9: 682.6] Lita BARAKAT [facility] CPT-4: 81411 06/07/2015 OFFICE/OUTPATIENT VISIT EST Diagnosis: Cellulitis of knee, left[ICD9: 682.6] Stephanie BARAKAT DO [facility] CPT-4: 21902 06/03/2015 ([id number]) OFFICE/OUTPATIENT VISIT EST Diagnosis: DM W/O COMPLICATION TYPE II, UNCONTROLLED[ICD9: 250.02] Diagnosis: COPD[ICD9: 496] Lita BARAKAT DO [facility] CPT- 4: 86946 06/01/2015 ([id number]) OFFICE/OUTPATIENT VISIT EST Diagnosis: COPD[ICD9: 496] Diagnosis: DYSPNEA[ICD9: 786.09] Diagnosis: DM W/O COMPLICATION TYPE II, UNCONTROLLED[ICD9: 250.02] Diagnosis: Actinic keratosis[ICD9: 702.0] Lita BARAKAT [facility] CPT-4: 90700 02/25/2015 ([id number]) OFFICE/OUTPATIENT VISIT EST Diagnosis: ASTHMA NOS[ICD9: 493.90] Diagnosis: COPD[ICD9: 496] Diagnosis: DM W/O COMPLICATION TYPE II, UNCONTROLLED[ICD9: 250.02] Lita BARAKAT [employer] [facility] CPT-4: 79876 10/27/2014 OFFICE/OUTPATIENT VISIT EST Diagnosis: DYSPNEA[ICD9: 786.09] Diagnosis: COPD[ICD9: 496] Lita BARAKAT [facility] CPT- 4: 88249 10/06/2014 ([id number]) OFFICE/OUTPATIENT VISIT EST Diagnosis: PNEUMONIA, ORGANISM[ICD9: 486] Diagnosis: COPD[ICD9: 496] Diagnosis: DYSPNEA[ICD9: 786.09] Lita BARAKAT [employer] [facility] CPT-4: 64416 09/21/2014 OFFICE/OUTPATIENT VISIT EST Diagnosis: PNEUMONIA, ORGANISM[ICD9: 486] Diagnosis: DYSPNEA[ICD9: 786.09] Diagnosis: COUGH[ICD9: 786.2] Stephanie BARAKAT [employer] [facility] CPT-4: 08248 09/08/2014 OFFICE/OUTPATIENT VISIT EST Diagnosis: COPD with exacerbation[ICD9: 491.21] Diagnosis: COUGH[ICD9: 786.2] Diagnosis: DYSPNEA[ICD9: 786.09] Stephanie BARAKAT [employer] [facility] CPT-4: 04092 09/02/2014 ([id number]) OFFICE/OUTPATIENT VISIT EST Diagnosis: DM W/O COMPLICATION TYPE II, UNCONTROLLED[ICD9: 250.02] Lita BARAKAT [employer] [facility] CPT-4: 01961 08/27/2014 ([id number]) OFFICE/OUTPATIENT VISIT EST Diagnosis: DM W/O COMPLICATION TYPE II, UNCONTROLLED[ICD9: 250.02] Diagnosis: HYPERLIPIDEMIA NEC/NOS[ICD9: 272.4] Diagnosis: HYPERTENSION[ICD9: 401.9] Diagnosis: COPD[ICD9: 496] Diagnosis: FLU VACCINE[ICD10: Z23] Lita [facility] CPT-4: 59384 08/05/2014 ([id number]) OFFICE/OUTPATIENT VISIT EST Diagnosis: COPD[ICD9: 496] Diagnosis: Lumbar degenerative disc disease[ICD9: 722.52] Lita [facility] CPT-4: 41136 05/05/2014 OFFICE/OUTPATIENT VISIT EST Diagnosis: DYSPNEA[ICD9: 786.09] Diagnosis: COPD[ICD9: 496] Lita [facility] CPT- 4: 68327 03/24/2014 ([id number]) OFFICE/OUTPATIENT VISIT EST Diagnosis: COPD[ICD9: 496] Diagnosis: DYSPNEA[ICD9: 786.09] Lita [facility] CPT-4: 75290 03/10/2014 OFFICE/OUTPATIENT VISIT EST Diagnosis: Subacromial bursitis[ICD9: 726.19] Diagnosis: Chronic low back pain[ICD9: 724.2] Diagnosis: Lumbar degenerative disc disease[ICD9: 722.52] Lita [facility] CPT-4: 69452 12/16/2013 ([id number]) OFFICE/OUTPATIENT VISIT EST Diagnosis: PHARYNGITIS, ACUTE[ICD9: 462] Diagnosis: COPD[ICD9: 496] Lita [facility] CPT- 4: 74429 10/09/2013 OFFICE/OUTPATIENT VISIT EST Diagnosis: COPD[ICD9: 496] Diagnosis: Acute exacerbation of chronic obstructive pulmonary disease (COPD)[ICD9: 491.21] Ruchi Buchanan LITA [facility] CPT-4: 42351 09/18/2013 ([id number]) OFFICE/OUTPATIENT VISIT EST Diagnosis: PNEUMONIA, ORGANISM[ICD9: 486] Diagnosis: DM W/O COMPLICATION TYPE II[ICD9: 250.00] Lita Gasper [facility] CPT-4: 68449 08/13/2013 ([id number]) OFFICE/OUTPATIENT VISIT EST Diagnosis: DM W/O COMPLICATION TYPE II, UNCONTROLLED[ICD9: 250.02] Diagnosis: HYPERLIPIDEMIA NEC/NOS[ICD9: 272.4] Diagnosis: HYPERTENSION[ICD9: 401.9] Diagnosis: DYSPNEA[ICD9: 786.09] Diagnosis: Family history of CABG[ICD9: V17.49] Lita Ramirez [facility] CPT-4: 89955 07/16/2013 ([id number]) OFFICE/OUTPATIENT VISIT EST Diagnosis: DM W/O COMPLICATION TYPE II, UNCONTROLLED[ICD9: 250.02] Diagnosis: HYPERLIPIDEMIA NEC/NOS[ICD9: 272.4] Diagnosis: HYPERTENSION[ICD9: 401.9] Lita Ramirez [facility] CPT-4: 19612 06/25/2013 OFFICE/OUTPATIENT VISIT EST Diagnosis: COUGH[ICD9: 786.2] Diagnosis: COPD[ICD9: 496] Kimberly [facility] CPT- 4: 50366 04/09/2013 ([id number]) OFFICE/OUTPATIENT VISIT EST Diagnosis: Muscle spasm[ICD9: 728.85] Diagnosis: ARTHRALGIA-MULTIPLE SITES[ICD9: 719.49] Lita Ramirez [facility] CPT-4: 80712 02/11/2013 OFFICE/OUTPATIENT VISIT EST Diagnosis: COPD with exacerbation[ICD9: 491.21] Diagnosis: BRONCHITIS, ACUTE[ICD9: 466.0] Ruchi Streeter [facility] CPT-4: 75333 01/31/2013 OFFICE/OUTPATIENT VISIT EST Diagnosis: COUGH[ICD9: 786.2] Diagnosis: PHARYNGITIS, ACUTE[ICD9: 462] Diagnosis: SINUSITIS, ACUTE[ICD9: 461.9] Lita Ramirez [facility] CPT-4: 59015 01/20/2013 OFFICE/OUTPATIENT VISIT EST Diagnosis: DIZZINESS/VERTIGO[ICD9: 780.4] Lita Streeter [facility] CPT-4: 22393 12/19/2012 OFFICE/OUTPATIENT VISIT EST Diagnosis: Skin lesion of left arm[ICD9: 709.9] Diagnosis: Otitis externa[ICD9: 380.10] Diagnosis: PHARYNGITIS, ACUTE[ICD9: 462] Lita [facility] CPT-4: 04151 10/21/2012 ([id number]) OFFICE/OUTPATIENT VISIT EST Diagnosis: DM W/O COMPLICATION TYPE II, UNCONTROLLED[ICD9: 250.02] Diagnosis: HYPERLIPIDEMIA NEC/NOS[ICD9: 272.4] Diagnosis: HYPERTENSION[ICD9: 401.9] [facility] C[facility]: 15660 09/19/2012 ([id number]) OFFICE/OUTPATIENT VISIT EST Diagnosis: DM W/O COMPLICATION TYPE II, UNCONTROLLED[ICD9: 250.02] Diagnosis: HYPERLIPIDEMIA NEC/NOS[ICD9: 272.4] Diagnosis: COPD[ICD9: 496] [facility] CPT- [facility]: 75095 09/18/2012 ([id number]) OFFICE/OUTPATIENT VISIT EST Diagnosis: BRONCHITIS, ACUTE[ICD9: 466.0] Diagnosis: SINUSITIS, ACUTE[ICD9: 461.9] Lita [facility] CPT-4: 31132 08/28/2012 ([id number]) OFFICE/OUTPATIENT VISIT EST Diagnosis: COPD[ICD9: 496] Diagnosis: DYSPNEA[ICD9: 786.09] Diagnosis: VAC STREP PNEUMONIAE-FLU (Medicare)[ICD9: V06.6] Lita [facility] CPT-4: 35420 07/10/2012 ([id number]) OFFICE/OUTPATIENT VISIT EST Diagnosis: DM W/O COMPLICATION TYPE II, UNCONTROLLED[ICD9: 250.02] Diagnosis: HYPERTENSION[ICD9: 401.9] Diagnosis: HYPERLIPIDEMIA NEC/NOS[ICD9: 272.4] Diagnosis: DIZZINESS/VERTIGO[ICD9: 780.4] Lita [facility] CPT-4: 15284 05/09/2012 ([id number]) OFFICE/OUTPATIENT VISIT EST Diagnosis: DM W/O COMPLICATION TYPE II, UNCONTROLLED[ICD9: 250.02] Diagnosis: HYPERLIPIDEMIA NEC/NOS[ICD9: 272.4] Diagnosis: HYPERTENSION[ICD9: 401.9] Diagnosis: MALAISE AND FATIGUE[ICD9: 780.79] Lita Segura [facility] CPT-4: 13933 05/06/2012 OFFICE/OUTPATIENT VISIT EST Diagnosis: COUGH[ICD9: 786.2] Diagnosis: SINUSITIS, ACUTE[ICD9: 461.9] Diagnosis: PHARYNGITIS, ACUTE[ICD9: 462] Lita CRAWFORD S[facility] DO [facility] CPT-4: 88510 10/02/2011 OFFICE/OUTPATIENT VISIT EST Diagnosis: DM W/O COMPLICATION TYPE II, UNCONTROLLED[ICD9: 250.02] Diagnosis: HYPERLIPIDEMIA NEC/NOS[ICD9: 272.4] Diagnosis: HYPERTENSION[ICD9: 401.9] Diagnosis: COPD[ICD9: 496] Lita Jasminelvabev [facility]RAWFORD [facility] DO [facility] CPT- 4: 29966 08/07/2011 OFFICE/OUTPATIENT VISIT EST Lita Gasper [facility] DO [facility] CPT- 4: 14036 04/03/2011 ([id number]) OFFICE/OUTPATIENT VISIT EST Lita Gasper TOBAR UELINE [facility] CPT-4: 40466 01/18/2011 ([id number]) OFFICE/OUTPATIENT VISIT EST Ilta Gasper [facility] CPT-4: 66191 12/19/2010 ([id number]) OFFICE/OUTPATIENT VISIT, EST Lita Jasminelvabev ALIZE RAJESHJESSICA [facility] CPT-4: 76792 04/05/2010 ([id number]) OFFICE/OUTPATIENT VISIT, EST Lita HOLMAN [facility] CPT-4: 82805 01/13/2010 ([id number]) OFFICE/OUTPATIENT VISIT, EST Lita HERRMANN RAJESHJESSICA [facility] CPT-4: 35227 12/23/2009 ([id number]) OFFICE/OUTPATIENT VISIT, EST Lita HOLMAN S[facility] DO [employer] CPT-4: 34180 12/22/2009 ([id number]) OFFICE/OUTPATIENT VISIT, SUZANNE HerrmannLita Oreelvabev ManFerdinand BARAKAT DO [employer] CPT-4: 88837 12/13/2009 Plan of Care Planned Activity Notes Codes Status Date Visit Diagnosis Plan: Chronic obstructiv e pulmonary disease with (acute) exacerbation Discussion: Solumedrol 125mg IM Continue SVNs every 4hrs Prednisone for 1 week COVID-19 precautions ICD-9 : 491.21 ICD-10 : J44.1 12/25/2019 Patient Education: prednisone- [employer] Coupon [id number] https://www.Bubbl/Flypay/resources/getResource/61/xp8pu5g1-1w2q-682x-83 Completed 12/25/2019 Visit Diagnosis Plan: Noncompliance with [...] M25.561 12/22/2019 Appointment: [facility] [phone] [facility] [facility] 12/22/2019 Patient Education: baclofen- [employer] Coupon [id number] https://www.Bubbl/Flypay/resources/getResource/61/ex7ow002-xgj5-5eh7-90 Completed 12/22/2019 Visit Diagnosis Plan: Chronic respiratory [...] : C44.310 11/12/2019 Appointment: Lita Barakat WPtel: [address] [place] [address] ACUTE ILLNESS 11/12/2019 Care Plan: Referral Order SNOMED-CT : 30 4103006 Pending 11/12/2019 Care Plan: Referral Order SNOMED-CT : 30 6349518 Pending 11/12/2019 Visit Diagnosis Plan: Right thyroid nodule Discussion: Check thyroid US ICD-9 : 241.0 ICD-10 : E04.1 09/11/2019 Visit Diagnosis Plan: Chronic obstructive pulmonary di sease, unspecified Discussion: Start Pulmonary Rehab Reviewed results of CT of chest ordered by pulmonology Follow Up: 3 months ICD-9 : 496 ICD-10 : J44.9 09/11/2019 Appointment: Lita Barakat WPtel: [address] [place], [place] [phone] MEDICATION REVIEW 09/11/2019 Care Plan: US EXAM OF HEAD AND NECK LOIN C : 46814-5 Pending 09/11/2019 Visit Diagnosis Plan: Chronic bronchitis Discussion: A ugmentin for 10 days ICD-9 : 491.9 ICD-10 : J42 08/07/2019 Appointment: Lita Barakat WPtel: [address] [place] [address] ACUTE ILLNESS 08/07/2019 Visit Diagnosis Plan: Chronic [...] him that overuse of symbicort can cause half-way damage and the albuterol is to be used every 4 hours as needed. call office later this week with worsening or no improvement ICD-9 : 491.21 ICD-10 : J44.1 07/14/2019 Appointment: Autumn Oneil [address] [place], [place] [id number] ACUTE ILLNESS 07/14/2019 Visit Diagnosis [...] F51.01 07/01/2019 Appointment: Lita Barakat WPtel: [phone] [facility] FOLLOW UP 07/01/2019 Care Plan: CT ABDOMEN W/O DYE LOINC : 36 103-0 Pending 07/01/2019 Care Plan: Referral Order SNOMED-CT : 30 [id number] Pending 07/01/2019 Visit Diagnosis Plan: Weight loss [...] R10.13 06/24/2019 Appointment: Lita Barakat WPtel: [phone] [facility] ACUTE ILLNESS 06/24/2019 Patient Education: Seroquel- [employer] Coupon [id number] https://www.Bubbl/samplemd/resources/getResource/61/2zq0f5l4-h073-83t3-44 Completed 06/24/2019 Patient Education: ondansetron HCl- [employer] Coupon [id number] https://www.Bubbl/sampleSimpliVity/resources/getResource/61/7919316n-7277-75t5-p5 Completed 06/24/2019 Care Plan: US EXAM ABDOM COMPLETE LOINC : 38348-8 Pending 06/24/2019 Visit Diagnosis Plan: Chronic insomnia [...] ICD-10 : H53.2 06/17/2019 Appointment: Lita Barakattel: [address] [place], [place] [phone] US FOLLOW UP 06/17/2019 Appointment: Lita Barakat WPtel: [address] [place], [place] [phone] US INJECTION 06/10/2019 Appointment: Lita Barakat WPtel: [address] [place], [place] [phone] US INJECTION 06/02/2019 Appointment: Lita Barakat WPtel: [address] [place] [id number] [place] INJECTION 05/27/2019 Appointment: Lita Barakat WPtel: [address] [place] [id number] [place] INJECTION 05/12/2019 Visit Diagnosis Plan: Anemia, [...] : E55.9 05/08/2019 Appointment: Lita Barakat WPtel: [address] [place], [place] [phone] FOLLOW UP 05/08/2019 Visit Diagnosis Plan: Pain in right knee Discussion: S top tramadol and tylenol q HS Trial of Hydrocodone 10/325mg po q HS Recheck 1month ICD-9 : 719.46 ICD-10 : M25.561 04/07/2019 Appointment: Lita Barakat WPtel: [address] [place], [place] [phone] Hospital Follow Up 04/07/2019 Visit Diagnosis Plan: [...] ICD-10 : F41.1 03/24/2019 Appointment: Autumn Oneil [address] [place], [place] [id number] ACUTE ILLNESS 03/24/2019 Patient Education: hydroxyzine HCl- [employer] C[employer]on [id number] Completed 03/24/2019 Patient Education: pantoprazole- [employer]on [id number] Completed 03/24/2019 Visit Diagnosis Plan: Chronic obstructiv e pulmonary disease with (acute) exacerbation Discussion: 90 mg solumedrol given in of fice. patient's portable oxygen tank was empty. ktxykon2c patient on importance of monitoring oxygen tank [...] ICD-10 : R42 03/21/2019 Appointment: Autumn Oneil [address] [place], [place] [id number] ACUTE ILLNESS 03/21/2019 Patient Education: ipratropium-albuterol- [employer] C marielapon [id number] [email or web address] Completed 03/21/2019 Visit Diagnosis Plan: Chronic obstructiv e pulmonary disease with (acute) exacerbation Discussion: Solumedrol now Use SVNs with duoneb at least q4hrs Patient is supposed to be on continuous oxygen but not wearing ICD-9 : 491.21 ICD-10 : J44.1 03/13/2019 Visit Diagnosis Plan: Candidal stomatitis Discussion: Diflucan and Nystatin susp ICD-9 : 112.0 ICD-10 : B37.0 03/13/2019 Appointment: Lita Barakat WPtel: [address] [place] [address] ACUTE ILLNESS 03/13/2019 Patient Education: losartan- [employer] Coupon [id number] Completed 03/13/2019 Patient Education: nystatin- [employer] C[employer]on [id number] Completed 03/13/2019 Patient Education: fluconazole- [employer]on [id number] Completed 03/13/2019 Visit Diagnosis Plan: Chronic obstructiv [...] : G25.81 03/10/2019 Appointment: Lita Barakat WPtel: [address] [place] [address] ACUTE ILLNESS 03/10/2019 Visit Diagnosis Plan: Restless legs syndrome Discussio n: Stop requip Increase sinemet to TID Add children's chewable MV with iron BID Add magnesium oxide 400mg daily Add Lyrica 75mg po q HS Stop trazadone Recheck 3 weeks Follow Up: 3 weeks ICD-9 : 333.94 ICD-10 : G25.81 02/26/2019 Appointment: Lita Barakat WPtel: [address] [place] [address] ACUTE ILLNESS 02/26/2019 Visit Diagnosis Plan: Primary insomnia Discussion: Tri al of doxepin 10-20mg po q HS prn sleep ICD-9 : 780.52 ICD-10 : F51.01 02/13/2019 Visit Diagnosis Plan: Chronic obstructive pulmonary di sease, unspecified Discussion: Stable Discussed trip to [place]--will get oxygen setup through [facility] ICD-9 : 496 ICD-10 : J44.9 02/13/2019 Appointment: Lita Barakat WPtel: [address] [place], [place] [phone] FOLLOW UP 02/13/2019 Patient Education: doxepin- [employer] Coupon [id number] https://www.Bubbl/samplemd/resources/getResource/61/64z0w34g-89yw-266x-7r Completed 02/13/2019 Appointment: Lita Barakat WPtel: [address] [place], [place] [phone] [place] CANCELED 01/20/2019 Visit Diagnosis Plan: Chronic obstructive pulmonary di sease, unspecified Discussion: Stable on oxygen Given Symbicort samples Follow Up: 1 months ICD-9 : 496 ICD-10 : J44.9 01/14/2019 Appointment: Lita Barakat WPtel: [address] [place], [place] [address] [facility] Follow Up 01/14/2019 Visit Diagnosis [...] : J96.11 12/25/2018 Appointment: Lita Barakat WPtel: [address] [place], [place] [address] Hospital Follow Up 12/25/2018 Appointment: Lita Barakat WPtel: [address] [place], [place] [phone] [place] CANCELED 12/23/2018 Appointment: Ines Banerjee [address] [place], [place] [id number] CANCELED 12/20/2018 Visit Diagnosis Plan: [...] ICD-10 : I10 12/09/2018 Appointment: Ines Banerjee [address] [place], [place] [phone] 12/09/2018 Patient Education: cefdinir- [employer] Coupon [id number] https://www.Bubbl/samplemd/resources/getResource/61/f0885e0z-67ix-8190-07 Completed 12/09/2018 Visit Diagnosis Plan: Candidal stomatitis Discussion: Diflucan for 5 days Hold atorvastatin while taking ICD-9 : 112.0 ICD-10 : B37.0 12/05/2018 Appointment: Lita Barakat WPtel: [address] [place], [place] [phone] ACUTE ILLNESS 12/05/2018 Patient Education: fluconazole- [employer] Coupon [id number] https://www.Bubbl/samplemd/resources/getResource/61/9k933v89-8zg4-26z2-98 Completed 12/05/2018 Appointment: Lita Barakat WPtel: [address] [place] [address] NO SHOW 11/11/2018 Visit Plan: Saline nasal [...] J01.91 10/23/2018 Appointment: [facility] [facility] [facility] 10/23/2018 Patient Education: prednisone- OptimizeRX Coupon [id number] https://www.Bubbl/Flypay/resources/getResource/61/zx6ru758-yuae-6192-75 Completed 10/23/2018 Care Plan: A1C HPLC LOINC : 08865-0 Pending 09/10/2018 Care Plan: COMPREH[place]AB[place] : 424[address]-0 Pending 09/10/2018 Care Plan: CBC Pending 09/10/2018 [...] G25.81 08/21/2018 Appointment: [facility]el[facility] [address] [facility] [facility] 08/21/2018 Care Plan: Referral Order SNOMED-CT : 30 7276272 Pending 08/21/2018 Visit Diagnosis Plan: Chronic obstructiv [...] : G25.81 08/07/2018 Appointment: Lita Barakat WPtel: [address] [place], [place] [phone] [place] [address] FOLLOW UP 08/07/2018 Appointment: Lita Barakat WPtel: [address] [place], [place] [phone] 07/18/18 1210---see note in chart (km) CANCELED 07/18/2018 Visit Diagnosis Plan: Chronic obstructiv e pulmonary disease with acute lower respiratory infection Discussion: Solumedrol 125mg IM Change t o trelagy 1 inhalation daily Use SVNs with albuterol q4hrs To ER this weekend if worsens Monitor weight/swelling ICD-9 : 496 ICD-10 : J44.0 05/23/2018 Appointment: Lita Barakat WPtel: [address] [place] [address] ACUTE ILLNESS 05/23/2018 Patient Education: Patient Medication Summary Completed 05/23/2018 Visit Diagnosis Plan: Candidal stomatitis Discussion: Diflucan for 7 more days--hold atrovastatin while taking ICD-9 : 112.0 ICD-10 : B37.0 05/02/2018 Appointment: Lita Barakat WPtel: [address] [place], [place] [address] FOLLOW UP 05/02/2018 Patient Education: Patient [...] : J44.0 04/29/2018 Appointment: Autumn Oneil [address] [place] [address] ACUTE ILLNESS 04/29/2018 Patient Education: Patient Medication [...] : J44.0 04/22/2018 Appointment: Lita Barakattel: [phone] [facility] Hospital Follow Up 04/22/2018 Patient Education: Patient Medication Summary Completed 04/22/2018 Appointment: Lita Barakat WPtel: [address] [place], [place] [phone] 04/09/18 1640---see message in chart from today [...] : M17.11 01/28/2018 Appointment: Lita Barakat WPtel: [address] [place] [address] ACUTE ILLNESS 01/28/2018 Patient Education: Patient Medication Summary Completed 01/28/2018 Care Plan: Referral Order SNOMED-CT : 30 0685517 Pending 01/28/2018 Care Plan: Referral Order SNOMED-CT : 30 0689022 Pending 01/28/2018 Visit Diagnosis Plan: Functional dyspepsia Discussion: Protonix Call in 1 week on how doing ICD-9 : 536.8 ICD-10 : K30 01/23/2018 Visit Diagnosis Plan: Pain in right knee Discussion: T opical voltaren gel QID ICD-9 : 719.46 ICD-10 : M25.561 01/23/2018 Appointment: Lita Barakat WPtel: [address] [place], [place] [address] ACUTE ILLNESS 01/23/2018 Patient Education: Patient [...] Appointment: Lita Barakat WPtel: [phone] [facility] [id number] ACUTE ILLNESS 01/02/2018 Patient Education: Patient Medication [...] : J44.1 12/28/2017 Appointment: Autumn Oneil [address] [place] [address] Consult 12/28/2017 Patient Education: Patient Medication Summary [...] : J20.9 12/21/2017 Appointment: Autumn Oneil [address] [facility] [place] [facility] ACUTE ILLNESS 12/21/2017 Patient Education: Patient Medication Summary Completed 12/21/2017 Care Plan: X-RAY EXAM OF KNEE 1 OR 2 right [place] NC : 81458-6 Pending 12/18/2017 Visit Diagnosis Plan: Pain in [...] : J44.0 12/17/2017 Appointment: Autumn Oneil [address] [place] [address] ACUTE ILLNESS 12/17/2017 Patient Education: Patient Medication Summary Completed 12/17/2017 Visit Diagnosis Plan: Unilateral primary osteoarthriti s, right knee Discussion: Right knee injection as above Warned of elevated BS after injection ICD-9 : 715.96 ICD-10 : M17.11 12/11/2017 Appointment: Lita Barakat WPtel: [address] [place] [address] OFFICE SURGERY 12/11/2017 Patient Education: Patient Medication Summary Completed 12/11/2017 Visit Diagnosis Plan: Actinic keratosis Discussion: Cr yotherapy as above If persists then will need excision by Dr. Swanson ICD-9 : 702.0 ICD-10 : L57.0 11/07/2017 Appointment: Lita Barakat WPtel: [address] [place] [address] ACUTE ILLNESS 11/07/2017 Patient Education: Patient Medication [...] : S61.411S 10/17/2017 Appointment: Lita Barakat WPtel: [address] [place], [place] [phone] ER Follow UP 10/17/2017 Patient Education: Patient Medication Summary Completed 10/17/2017 Appointment: Lita Barakat WPtel: [facility]8 [facility] [place] Consult 08/15/2017 Visit Diagnosis Plan: Chronic [...] : J44.0 08/02/2017 Appointment: Autumn Oneil [address] [place] [address] ACUTE ILLNESS 08/02/2017 Patient Education: Patient Medication Summary Completed 08/02/2017 Patient Education: Patient Medication Summary Completed 07/31/2017 Care Plan: CHEST X-RAY 2VW FRONTAL&LATL LOINC : 52145-4 Pending 07/31/2017 Appointment: Lita Barakat WPtel: [address] [place], [place] [phone] [place] INJECTION 07/24/2017 Patient Education: Patient Medication [...] : J44.1 07/02/2017 Appointment: Autumn Oneil [address] [place] [address] ACUTE ILLNESS 07/02/2017 Patient Education: Patient Medication Summary Completed 07/02/2017 Care Plan: CHEST X-RAY 2VW FRONTAL&LATL LOINC : 36257-3 Pending 07/02/2017 Care Plan: MRI LUMBAR SPINE W/O DYE LOIN C : 74884-8 Pending 05/30/2017 Visit Plan: MRI at [facility] [place] codone 5.325 1 po q 4-6 hours prn pain #40 NR and Cyclobenzaprine (ERx) Continue warm packs for pain RTC if no improvement 05/29/2017 Appointment: Ruchi Buchanan WPtel: [address] [place] [address] ACUTE ILLNESS 05/29/2017 Patient Education: Patient Medication Summary Completed 05/29/2017 Appointment: Lita Barakat WPtel: [address] [place] [address] US CANCELED 05/24/2017 Patient Education: Patient Medication Summary Completed 05/22/2017 Care Plan: X-RAY EXAM L-S SPINE 2/3 VWS LOINC : 70141-5 Pending 05/22/2017 Appointment: Lita Barakat WPtel: [address] [place] [address] LAB 04/17/2017 Patient Education: Patient Medication Summary Completed 04/17/2017 Referral: Demetrius Rodriguez WPtel: [address] Referral Initiated 04/05/2017 Appointment: Lita Barakat WPtel: [address] [place] [address] 03/30/17 0930---spoke with patient about ointments (km Consult 03/30/2017 Appointment: Lita Barakat WPtel: [address] [place], [place] [address] 03/29/17 1320---spoke with patient, requip refilled wasn't received at pharmacy so verbally called (km) Consult 03/29/2017 Patient Education: Patient Medication Summary Completed 03/01/2017 Care Plan: CHEST X-RAY 2VW FRONTAL&LATL LOINC : 21414-8 Pending 03/01/2017 Visit Diagnosis Plan: Bursitis of left shoulder Discus yesi: Injection as above ICD-9 : 726.10 ICD-10 : M75.52 02/01/2017 Appointment: Lita Barakat WPtel: [address] [place], [place] [phone] 01/31 confirmed ~sl WORK IN 02/01/2017 Patient Education: Patient Medication Summary Completed 02/01/2017 Care Plan: X-RAY EXAM OF SHOULDER LOINC : 65095-1 Pending 01/30/2017 Visit Plan: May take OTC Tylenol/Ibuprof en as directed XRay at [facility] of left shoulder Tramadol 50mg 1 po q 6 hours prn pain called to [facility]. Sedation warning given (no driving, etc) RTC if no improvement 01/29/2017 Appointment: Ruchi Buchanan WPtel: [address] [place], [place] [phone] ACUTE ILLNESS 01/29/2017 Appointment: Ruchi Buchanan WPtel: [address] [place], [place] [phone] ACUTE ILLNESS 01/29/2017 Patient Education: Patient Medication Summary Completed 01/29/2017 Appointment: Lita Barakat WPtel: [address] [place], [place] [phone] [place] Consult 01/10/2017 Appointment: Lita Barakat WPtel: [address] [place], [place] [phone] 12/27/2016 Patient Education: Patient Medication Summary Completed [...] : R53.83 12/21/2016 Appointment: Lita Barakat WPtel: [address] [place], [place] [address] ACUTE ILLNESS 12/21/2016 Patient Education: Patient Medication Summary Completed 12/21/2016 Appointment: Lita Barakat WPtel: [address] [place], [place] [phone] [place] CANCELED 12/18/2016 Visit Diagnosis Plan: Restless [...] ICD-10 : D64.9 12/14/2016 Appointment: Lita Barakattel: [address] [place], [place] [phone] 12/13 confirmed ~sl WORK IN 12/14/2016 Appointment: Lita Barakat WPtel: [address] [place] [address] [place] CANCELED 12/14/2016 Patient Education: Patient Medication Summary Completed 12/14/2016 Appointment: Lita Barakattel: [address] [place], [place] [phone] [place] LAB 12/12/2016 Patient Education: Patient Medication Summary Completed 12/12/2016 Appointment: Lita Barakat WPtel: [address] [place], [place] [phone] in ER this weekend--called for reports Consult 12/11/2016 Appointment: Lita Barakat WPtel: [address] [place], [place] [phone] CANCELED 12/04/2016 Visit Diagnosis Plan: Pneumonia, [...] ICD-10 : G25.81 11/14/2016 Appointment: Magda Toth [address] [place] [address] MEDICATION REVIEW 11/14/2016 Patient Education: Patient Medication Summary Completed 11/14/2016 Appointment: Lita Barakat WPtel: [address] [place], [place] [phone] RESCHEDULED 11/02/2016 Visit Diagnosis Plan: Candidal stomatitis Discussion: Diflucan and Nystatin Hold atorvastatin while taking diflucan ICD-9 : 112.0 ICD-10 : B37.0 10/31/2016 Appointment: Lita Barakat WPtel: [address] [place], [place] [phone] ACUTE ILLNESS 10/31/2016 Patient Education: Patient Medication Summary Completed 10/31/2016 Appointment: Lita Barakat WPtel: [address] [place], [place] [phone] [place] Consult 10/23/2016 Appointment: Lita Barakat WPtel: [address] [place] [address] US CANCELED 10/18/2016 Visit Plan: Rx as above Wear O2 at all t imes as instructed by Dr Chacon Continue breathing treatments Supportive care otherwise reviewed Follow up ingrid if not improving 10/03/2016 Appointment: Lita Barakat WPtel: [address] [place], [place] [phone] [place] CANCELED 10/03/2016 Appointment: Magda Toth [address] [place] [address] ACUTE ILLNESS 10/03/2016 Patient Education: Patient Medication Summary Completed 10/03/2016 Visit Plan: Titrate requip to 1.5mg x 1 week Call if not helpful and will increase to 2mg qHS NO MORE nyquil at bedtime - discussed potential effects of decongestants on heart, oversedating himself, etc Will increase requip, then amitriptyline if needed to desired effect 09/04/2016 Appointment: Magda Toth [address] [place] [address] ACUTE ILLNESS 09/04/2016 Patient Education: Patient Medication Summary Completed 09/04/2016 Visit Plan: Stop requip and try elavil C ryotherapy as above See ENT for removal of right ear lesion 08/22/2016 Appointment: Lita Barakat WPtel: [address] [place] [address] ACUTE ILLNESS 08/22/2016 Patient Education: Patient Medication Summary Completed 08/22/2016 Visit Plan: Trial of requip 1mg q HS Res tart zoloft Recheck 1month 08/10/2016 Appointment: Lita Barakat WPtel: [address] [place] [address] ACUTE ILLNESS 08/10/2016 Patient Education: Patient Medication Summary Completed 08/10/2016 Visit Plan: Stop HCTZ Flagyl for diarrhe a Hydrate Discussed meds for restless legs Zofran prn Nausea 07/06/2016 Appointment: Lita Barakat WPtel: [address] [place], [place] [phone] 07/05 confirmed~ Hospital Follow Up 07/06/2016 Patient Education: Patient Medication Summary Completed 07/06/2016 Visit Plan: Reviewed with Dr Gasper Palacios sidering his recent history, instructed him to go straight to the ER called to notify her so she can meet him there 06/22/2016 Appointment: Magda Toth [address] [place] [address] ACUTE ILLNESS 06/22/2016 Patient Education: Patient Medication Summary Completed 06/22/2016 Visit Plan: Continue current meds Prevna r 13 and High Dose Flu given 06/13/2016 Appointment: Lita Barakat WPtel: [address] [place], [place] [phone] 06/13 confirmed~ WORK IN 06/13/2016 Patient Education: Patient Medication Summary Completed 06/13/2016 Appointment: Lita Barakat WPtel: [phone] [facility]6[address] just went over current medications CANCELED 06/08/2016 Visit Plan: Reviewed POC with Dr Barakat Stat cbc, cmp, d dimer, troponin, bnp, ekg, cxr If any worsening of symptoms while awaiting results, patient instructed to go to ER or call 911 06/01/2016 Appointment: Magda Toth [address] [place], [place] [address] ACUTE ILLNESS 06/01/2016 Patient Education: Patient Medication Summary Completed 06/01/2016 Referral: José Miguel Swanson WPtel: [address] 04/[address] swanson's office, patient [...] eval and treatment 04/26/2016 Appointment: Magda Toth [address] [place], [place] [phone] ACUTE ILLNESS 04/26/2016 Patient Education: Patient Medication Summary Completed 04/26/2016 Care Plan: Referral Order SNOMED-CT : 30 6583274 Pending 04/26/2016 Visit Plan: Left ear flushed after conse nt with warm water with peroxide with ear syringe Patient tolerated well Ear exam is wnl following flushing Follow up PRN 04/05/2016 Appointment: Magda Toth [address] [place], [place] [phone] ACUTE ILLNESS 04/05/2016 Patient Education: Patient Medication Summary Completed 04/05/2016 Visit Plan: Increase Levemir to 25u sc d aily Increase sertraline to 2 full tablets daily--200mg Debrox or cerumenex to bilateral ears q HS for 3 nights then flush or fwup for fushing Check lab in 2mos then fwup 04/03/2016 Appointment: Lita Barakat WPtel: [address] [place], [place] [phone] 03/31 7/8 lm ~sl FOLLOW UP 04/03/2016 Patient Education: Patient Medication Summary Completed 04/03/2016 Visit Plan: Patient informed of correct dosage of levemir and how to administer. Patient verbalizes understanding and will call if any questions/concerns. 10 Units of Levemir given in office SC to right lower abdom en. Patient tolerated well. Site without redness/irritation. 03/13/2016 Appointment: Lita Barakat WPtel: [address] [place], [place] [phone] SPECIAL 03/13/2016 Patient Education: Patient Medication Summary Completed 03/13/2016 Appointment: Lita Barakat WPtel: [address] [place], [place] [phone] LAB 03/06/2016 Patient Education: Patient Medication Summary Completed 03/06/2016 Visit Plan: Patient saw Dr. Chacon this week and was given prednisone taper for COPD Continue current meds Accuchecks daily Patient will return on Sunday morning for fasting lab incuding CBC, CMP, TSH, free T4, HbA1C, Lipids, Testosterone, PSA 03/02/2016 Appointment: Lita Barakat WPtel: [address] [place] [address] 03/01 confirmed ~sl FOLLOW UP 03/02/2016 Patient [...] how doing 02/17/2016 Appointment: Lita Barakat WPtel: [address] [place] [address] WORK IN 02/17/2016 Patient Education: Patient Medication Summary Completed 02/17/2016 Visit Plan: Xrays to further evaluate Alvarez spect heel spur(s) Will call with results Has had injections in the past that were helpful Dr Barakat can do them or can refer to podiatry if warranted 02/14/2016 Appointment: Magda Toth [address] [place] [address] ACUTE ILLNESS 02/14/2016 Patient Education: Patient Medication Summary Completed 02/14/2016 Visit Plan: Increase Zoloft to 150mg cooper ly 01/31/2016 Appointment: Lita Barakat WPtel: [address] [place] [address] 01/26 confirmed `sl FOLLOW UP 01/31/2016 Patient Education: Patient Medication Summary Completed 01/31/2016 Visit Plan: Decrease citalopram to 20mg q AM for 1 week then stop Start zoloft 50mg q HS for 1 week then increase to 100mg q HS 12/30/2015 Appointment: Lita Barakat WPtel: [address] [place], [place] [address] 12/28 confirmed~sl ACUTE ILLNESS 12/30/2015 Patient Education: Patient Medication Summary Completed 12/30/2015 Visit Plan: Check Neck US 12/16/2015 Appointment: Lita Barakat WPtel: [address] [place] [address] [place] 12/14 lm ~sl 12/15 confirmed-sp FOLLOW UP 12/16/2015 Patient Education: Patient Medication Summary Completed 12/16/2015 Care Plan: US EXAM OF HEAD AND NECK LOIN C : 18413-6 Ordered 12/16/2015 Appointment: Stephanie Rios WPtel: [address] [place], [place] [address] 12/09 confirmed-sp 12/12 lm ~sl Patient r mannie call and stated he just plain forgot ~sl FOLLOW UP 12/13/2015 Visit Plan: Had changing lesions of fore head and left mastoid area removed earlier today. Follow-up in one week Will proceed with soft tissue ultrasound of neck/ left cervical lymph node if no improvement antibiotics Clindamycin 300mg PO TID 12/06/2015 Appointment: Stephanie Rios WPtel: [address] [place], [place] [phone] ACUTE ILLNESS 12/06/2015 Patient Education: Patient Medication Summary Completed 12/06/2015 Referral: Lisbeth Darby WPtel: [facility] [address] [facility] 11/18/15 called luther at [facility] office and confirmed time and date of appointment with patient~sl Initiated 11/18/2015 Visit Plan: Referral to Dermatology for removal of facial skin lesions Cefdinir PO bid Topical Mupirocin to skin lesions bid 11/15/2015 Appointment: Stephanie Rios WPtel: [address] [place] [address] ACUTE ILLNESS 11/15/2015 Patient Education: Patient Medication Summary Completed 11/15/2015 Visit Plan: Continue current meds Accuch ecks daily Fwup with ophthamology as scheduled Will check lab in 3mos then fwup due to recent meds that will affect blood sugar 10/05/2015 Appointment: Lita Barakat WPtel: [address] [place], [place] [phone] 10/04/15 appt confirmed cn Annual Well Visit 08/2016 Patient Education: Patient Medication Summary Completed 10/05/2015 Visit Plan: Trajenta -1 sample box given Return visit in 6 weeks for fasting labs Notify for worsening symptoms such as Increased redness, swelling, pain or drainage of Rt. knee 07/22/2015 Appointment: Stephanie Rios WPtel: [address] [place], [place] [phone] 07/21 vm left cn FOLLOW UP 07/22/2015 Patient Education: Patient Medication Summary Completed 07/22/2015 Visit Plan: Continue to change dressing twice daily and apply Mupirocin Complete Doxycycline as directed. Follow-up for worsening symptoms, such as increased swelling, redness or pain. 07/01/2015 Appointment: Stephanie Rios WPtel: [address] [place], [place] [phone] FOLLOW UP 07/01/2015 Patient Education: Patient Medication Summary Completed 07/01/2015 Visit Plan: Pressure dressing applied to draining wound left knee. Instructed to change dressing twice daily and continue Mupirocin topical Doxycycline PO bid x 10 days Wound culture obtained. Wound tissue sent to pathology Follow-up in 3 days 06/28/2015 Appointment: Stephanie Rios WPtel: [address] [place], [place] [phone] ACUTE ILLNESS 06/28/2015 Patient Education: Patient Medication Summary Completed 06/28/2015 Visit Plan: Complete antibiotics Follow- up for increased tenderness, swelling or drainage. 06/09/2015 Appointment: Stephanie Rios WPtel: [address] [place], [place] [phone] 06/08/15 lm FOLLOW UP 06/09/2015 Patient Education: Patient Medication Summary Completed 06/09/2015 Visit Plan: Apply pressure dressing toda y Continue antibiotics and topical Mupirocin Follow-up in 2 days Bursa drained from open area using pressure--serosanguinous drainage 06/07/2015 Appointment: Stephanie Rios WPtel: [address] [place], [place] [phone] 06/04/15 confirmed with patient FOLLOW UP 0 06/07/2015 Patient Education: Patient Medication Summary Completed 06/07/2015 Visit Plan: Wound culture Lt. knee Apply mupirocin to open wound bid Clindamycin 600 mg PO bid x 10 days Follow-up on Sunday06/03/2015 Appointment: Stephanie Rios WPtel: [address] [place], [place] [phone] ACUTE ILLNESS 06/03/2015 Patient Education: Patient Medication Summary Completed 06/03/2015 Visit Plan: Accuchecks daily Check CMP, HbA1C today Patient is noncompliant with meds and diet but patient says he is doing everything he is supposed to do Wants to try performomist instead of albuterol in SVN 06/01/2015 Appointment: Lita Barakat WPtel: [address] [place], [place] [phone] 05/28 appt confirmed cn FOLLOW UP 06/01/20 Patient Education: Patient Medication Summary Completed 06/01/2015 Visit Plan: Change Breo Ellipta to Advai r 500/50 1 p BID this next month Continue turdoza Use albuterol prn Check CMP, HbA1C today Accuchecks daily Cryotherapy as above 02/25/2015 Appointment: Lita Barakat WPtel: [address] [place], [place] [phone] 02/24 appt confirmed and explained needed payment he said ok FOLLOW UP 02/25/2015 Patient Education: Patient Medication Summary Completed 02/25/2015 Referral: Lopez Chacon1 [facility] C&D [id number] Will put patient on cancellation list Initiated 12/08/2014 Appointment: Lita Barakat WPtel: [facility]4 [facility] Hospital Follow Up 10/29/2014 Visit Plan: Finish prednisone Continue S VNs with albuterol QID See pulmonology and start Pulmonary rehab Once again discussed taking it easy this winter--that he is high risk for exacerbation 10/27/2014 Appointment: Lita Barakat WPtel: [address] [place], [place] [phone] FOLLOW UP 10/27/2014 Patient Education: Patient Medication Summary Completed 10/27/2014 Appointment: Lita Barakat WPtel: [address] [place], [place] [phone] FOLLOW UP 10/26/2014 Appointment: Stephanie Rios WPtel: [address] [place], [place] [phone] WORK IN 10/21/2014 Patient Education: Patient Medication Summary Completed 10/21/2014 Patient Education: Patient Medication Summary Completed 10/19/2014 Visit Plan: Continue oxygen and SVNS wit h duoneb Increase farxiga to 10mg daily Diflucan 100mg daily for 1week 10/06/2014 Appointment: Lita Barakat WPtel: [address] [place], [place] [phone] Moved appt time to 2:45pm FOLLOW UP 2014 Patient Education: Patient Medication Summary Completed 10/06/2014 Visit Plan: Finish omnicef Continue Breo BID and Turdoza Use SVNS with duoneb at least TID for next 2weeks then go to prn 09/21/2014 Appointment: Lita Barakat WPtel: [address] [place], [place] [phone] Hospital Follow Up 09/21/2014 Patient Education: Patient Medication Summary Completed 09/21/2014 Patient Education: [facility] - Saving [employer] - Ventolin HFA - 18+ - Dynamic Portal ID Completed 09/21/2014 Appointment: Stephanie Rios WPtel: [address] [place], [place] [phone] Scheduled by 09/07 patient rescheduled to 09/08 with Stephanie. Hospital Follow Up 09/08/2014 Patient Education: Patient Medication Summary Completed 09/08/2014 Appointment: Stephanie Rios WPtel: [address] [place], [place] [phone] FOLLOW UP 09/02/2014 Patient Education: Patient Medication Summary Completed 09/02/2014 Patient Education: [employer] - Antibi otics, Analgesics 18+, Oral Contraceptives F 18+ Completed 09/02/2014 Appointment: Lita Barakat WPtel: [address] [place], [place] [phone] [place] UA 08/27/2014 Patient Education: Patient Medication [...] prn sleep 08/10/2014 Appointment: Lita Barakat WPtel: [address] [place] [address] Annual Well Visit 08/10/2014 Patient Education: Patient Medication Summary Completed 08/10/2014 Appointment: Lita Barakat WPtel: [address] [place], [place] [phone] [place] LAB 08/05/2014 Patient Education: Patient Medication Summary Completed 08/05/2014 Visit Plan: ECHO results reviewed Contin ue Breo and Turdoza Pt starts PT this afternoon for back--has had one epidural with no help in pain 05/05/2014 Appointment: Lita Barakat WPtel: [address] [place], [place] [phone] FOLLOW UP 05/05/2014 Patient Education: Patient Medication Summary Completed 05/05/2014 Visit Plan: Continue Breo and Turdoza Camargo s heart tests scheduled next week Will see surgeon for removal of skin cancer to neck after done with cardiac workup 03/24/2014 Appointment: Lita Barakat WPtel: [address] [place], [place] [phone] [place] FOLLOW UP 03/24/2014 Patient Education: Patient Medication Summary Completed 03/24/2014 Visit Plan: Proceed with cardiology eval uation as patient is has numerous risk factors for CAD Change Symbicort to Breo 1p BID and add Turdorza 1p BID Recheck in weeks Check 2-D ECHO and lexiscan 03/10/2014 Appointment: Lita Barakat WPtel: [address] [place], [place] [phone] FOLLOW UP 03/10/2014 Patient Education: Patient Medication Summary Completed 03/10/2014 Visit Plan: Shoulder injection as above Back brace to use when doing any lifting for stability 12/16/2013 Appointment: Lita Barakat WPtel: [address] [place], [place] [phone] 12/16/2013 Patient Education: Patient Medication Summary Completed 12/16/2013 Visit Plan: Continue symbicort and Turdo za Salt water gargles Omnicef 300mg 2 po daily for 1wk Phenergan with codeine 10/09/2013 Appointment: Lita Barakat WPtel: [address] [place], [place] [phone] WORK IN 10/09/2013 Patient Education: Patient Medication Summary Completed 10/09/2013 Appointment: Ruchi Buchanan WPtel: [address] [place], [place] [phone] 09/18/2013 Patient Education: Patient Medication Summary Completed 09/18/2013 Visit Plan: Check on repeat CXR Finish a bx Start Tradjenta to replace metformin 08/13/2013 Appointment: Lita Barakat WPtel: [address] [place], [place] [phone] 08/12 Hospital Follow Up 08/13/2013 Patient Education: Patient Medication Summary Completed 08/13/2013 Visit Plan: Admit to hospital 08/06/2013 Appointment: Stephanie Rios WPtel: [address] [place], [place] [phone] AC[facility]LL[facility] 08/06/2013 Patient Education: Patient Medication Summary Completed 08/06/2013 Visit Plan: Continue current meds Contin ue accuchecks daily Proceed with stress test due to high risk for CAD 07/16/2013 Appointment: Lita Barakat WPtel: [address] [place] [address] FOLLOW UP 07/16/2013 Patient Education: Patient Medication Summary Completed 07/16/2013 Appointment: Lita Barakat WPtel: [address] [place] [address] LAB 06/25/2013 Patient Education: Patient Medication Summary Completed 06/25/2013 Visit Plan: prednisone and azithromycin. Doing CBC and mycoplasma blood draw. Will continue inhaler and albuterol breathing treatments. 04/09/2013 Appointment: Kimberly Villalba WPtel: [address] [place] [address] ACUTE ILLNESS 04/09/2013 Patient Education: Patient Medication Summary Completed 04/09/2013 Appointment: Lita Barakat WPtel: [address] [place] [address] ACUTE ILLNESS 02/11/2013 Patient Education: Patient Medication Summary Completed 02/11/2013 Appointment: Ruchi Buchanan WPtel: [address] [place] [address] ACUTE ILLNESS 01/31/2013 Patient Education: Patient Medication Summary Completed 01/31/2013 Visit Plan: Cefdinir and medrol dose pac k. Codeine/guiaf cough syrup. Has colonoscopy on Sunday. Pt. is to notify if fever occurs or symptoms worsen. Hydration and rest. 01/20/2013 Appointment: Kimberly Villalba WPtel: [address] [place] [address] ACUTE ILLNESS 01/20/2013 Patient Education: Patient Medication Summary Completed 01/20/2013 Visit Plan: Scopalamine patch and vestib ular exercises 12/19/2012 Appointment: Lita Barakat WPtel: [address] [place] [address] ACUTE ILLNESS 12/19/2012 Patient Education: Patient Medication Summary Completed 12/19/2012 Visit Plan: Dr. Swanson consult if no impr ovement in hearing. Pt. reports he will notify if no better in one week. Willam consult for skin lesion. 10/21/2012 Appointment: Kimberly Villalba WPtel: [address] [place], [place] [phone] ACUTE ILLNESS 10/21/2012 Patient Education: Patient Medication Summary Completed 10/21/2012 Appointment: Lita aBrakat WPtel: [address] [place], [place] [phone] [place] LAB 09/19/2012 Patient Education: Patient Medication Summary Completed 09/19/2012 Visit Plan: Check fasting lab in AM--CMP , Lipids, HbA1C 09/18/2012 Appointment: Lita Barakat WPtel: [address] [place], [place] [phone] FOLLOW UP 09/18/2012 Patient Education: Patient Medication Summary Completed 09/18/2012 Appointment: Lita Barakat WPtel: [address] [place], [place] [phone] appt time scheduled sooner FOLLOW UP 09/05 Visit Plan: Doxycycline and Prednisone I ncrease SVN to QID Add back Symbicort 160/4.5 2 p BID 08/28/2012 Appointment: Lita Barakat WPtel: [address] [place], [place] [phone] [place] FOLLOW UP 08/28/2012 Patient Education: Patient Medication Summary Completed 08/28/2012 Appointment: Lita Barakat WPtel: [address] [place], [place] [phone] Annual Well Visit 07/10/2012 Patient Education: Patient Medication Summary Completed 07/10/2012 Visit Plan: Finish Z-pack Add Nasonex Ad d Meclizine Vestibular exercises Continue current meds and accuchecks Check lab and fwup in 4mos 05/09/2012 Appointment: Lita Barakat WPtel: [address] [place], [place] [id number] [place] number no longer works FOLLOW UP 2 Patient Education: Patient Medication Summary Completed 05/09/2012 Appointment: Lita Barakat WPtel: [address] [place], [place] [phone] [place] LAB 05/06/2012 Patient Education: Patient Medication Summary Completed 05/06/2012 Appointment: Lita Barakat WPtel: [address] [place], [place] [phone] [place] LAB 05/02/2012 Appointment: Lita Barakat WPtel: [address] [place], [place] [phone] [place] INJECTION 02/05/2012 Patient Education: Patient Medication Summary Completed 02/05/2012 Visit Plan: cefdinir. Will focus on rest and fluids. Pt. reports he is using breathing treatments as needed. Pt. will monitor for worsening symptoms or fever. 10/02/2011 Appointment: Kimberly Villalba WPtel: [address] [place], [place] [phone] AC[facility] ILLNESS 10/02/2011 Patient Education: Patient Medication Summary Completed 10/02/2011 Appointment: Lita Barakat WPtel: [address] [place], [place] [phone] [place] INJECTION 08/10/2011 Patient Education: Patient Medication Summary Completed 08/10/2011 Visit Plan: Continue current meds Restar t Advair Restart exercise Flu shot given 08/07/2011 Appointment: Lita Barakat WPtel: [address] [place], [place] [id number] [place] FOLLOW UP 08/07/2011 Patient Education: Patient Medication Summary Completed 08/07/2011 Appointment: Lita Barakat WPtel: [address] [place], [place] [phone] [place] LAB 07/26/2011 Patient Education: Patient Medication Summary Completed 07/26/2011 Visit Plan: ALEKSANDER Carmen Continue Metformin but change to BID Add Lantus 25u sc q PM BS readings in 1wk 04/03/2011 Appointment: Lita Barakat WPtel: [address] [place] [address] ACUTE ILLNESS 04/03/2011 Patient Education: Patient Medication Summary Completed 04/03/2011 Appointment: Lita Barakat WPtel: [address] [place], [place] [phone] [place] INJECTION 01/19/2011 Patient Education: Patient Medication Summary Completed 01/19/2011 Appointment: Lita Barakat WPtel: [address] [place] [address] ACUTE ILLNESS 01/18/2011 Patient Education: Patient Medication Summary Completed 01/18/2011 Appointment: Lita Barakat WPtel: [address] [place] [address] [place] INJECTION 12/21/2010 Patient Education: Patient Medication Summary Completed 12/21/2010 Appointment: Lita Barakat WPtel: [address] [place] [address] [place] FOLLOW UP 12/19/2010 Patient Education: Patient Medication Summary Completed 12/19/2010 Appointment: Lita Barakat WPtel: [address] [place], [place] [phone] [place] LAB 12/07/2010 Patient Education: Patient Medication Summary Completed 12/07/2010 Appointment: Kimberly Villalba WPtel: [address] [place], [place] [phone] ACUTE ILLNESS 04/05/2010 Patient Education: Patient Medication Summary Completed 04/05/2010 Appointment: Lita Barakat WPtel: [address] [place] [address] [place] WORK IN 03/14/2010 Patient Education: Patient Medication Summary Completed 03/14/2010 Appointment: Lita Barakat WPtel: [address] [place], [place] [phone] [place] LAB 03/02/2010 Visit Plan: HbA1C in 3mos. Continue Accu checks BID alternating times. Switch lexapro to celexa 01/13/2010 Appointment: Lita Barakat WPtel: [address] [place], [place] [phone] FOLLOW UP 01/13/2010 Patient Education: Patient Medication Summary Completed 01/13/2010 Appointment: Lita Barakat WPtel: [address] [place], [place] [phone] FOLLOW UP 01/11/2010 Visit Plan: Pt. will continue the Avalox and Doxycycline regimen as prescribed the previous day. He has been advised to continue inhalers, breathing treatments and oxygen therapy for at least the weekend. Moderate activity without strenuous exercise. The pt. will seek immediate re-eval if his symptoms worsen. 12/23/2009 Appointment: Kimberly Villalba WPtel: [address] [place] [address] FOLLOW UP 12/23/2009 Patient Education: Patient Medication [...] tomorrow morning. 12/22/2009 Appointment: Kimberly Villalba WPtel: [address] [place], [place] [phone] ACUTE ILLNESS 12/22/2009 Patient Education: Patient Medication Summary Completed 12/22/2009 Appointment: Kimberly Villalba WPtel: [address] [place], [place] [phone] FOLLOW UP 12/21/2009 [facility]ment: [facility] [phone] [facility] [place] [facility] 12/16/2009 Patient Education: Patient Medication Summary Completed 12/16/2009 Appointment: Kimberly Villalba WPtel: [phone] [facility] [place] ACUTE ILLNESS 12/13/2009 Patient Education: Patient Medication Summary Completed 12/13/2009 Care Plan: X-RAY EXAM OF SHOULDER lt shoulder (pain ra diates across the shoulder) Hand carried orders to [facility] LOINC : 46644-7 Ordered 12/13/2009 Care Plan: X-RAY EXAM THORAC SPINE 2VWS Hand carried order LOINC : 74606-4 Ordered 12/13/2009 Care Plan: X-RAY EXAM RIBS UNI 2 VIEWS Posterior ribs of lt. side Pt. hand carries order to [facility] LOINC : 04723-6 Ordered 12/13/2009 Referral: José Miguel Swanson WPtel: [address] [address] [place] Referral Appointment Requested Referral: José Miguel Swanson WPtel: [address] [address] [place] Referral Appointment Requested Referral: Chandu Quarles WPtel: [phone] Quarles for screening colonoscopy. P atient notified that [facility] office will book appt with him Initiated Referral: Santosh Machado WPtel: [address] [facility] [place] Referral Appointment Requested Referral: José Miguel Swanson WPtel: [address] [address] [place] Referral Initiated Referral: Lopez Chacon [address] [facility] C&D [id number] [place] Referral Initiated Referral: Demetrius Rodriguez WPtel: [phone] [address] [place] Referral Appointment Requested Referral: José Miguel Swanson WPtel: [address] [address] [place] Referral Appointment Requested Referral: José Miguel Swanson WPtel: [address] [facility] 3 [id number] [place] Referral Initiated Instructions Comment . Saline nasal flushes prn. Tylenol/Motr in prn headache. Notify if persists/symptoms worsening. . MRI at [facility] Hydrocodone 5.325 1 po q 4-6 hours prn pain #40 NR and Cyclobenzaprine (ERx) Continue warm packs for pain RTC if no improvement . May take OTC Tylenol/Ibuprofen as dire cted XRay at of left shoulder Tramadol 50mg 1 po q 6 hours prn pain called to [facility]. Sedation warning given (no driving, etc) [...]
--- OUTSIDE RECORDS SUMMARY | 2019-12-31 00:24 | XMS REPORT | CCD ---
Author Author Leandro Barakat D.O. Organization [facility] Address [address] [place] [address] Phone Care Team Providers Care Boatswain'S Mate Name Role Phone Lita Barakat D.O., PP Unavailable CCM Unavailable Summary Purpose Interface Exchange Insurance Providers Payer name Policy type / Coverage type Covered green party ID Effective Begin Date Effective End Date [employer] MEDICARE Medicare Part B [id number] 2019 Unknown Family history Brother Diagnosis Age At Onset Cancer Unknown Father Diagnosis Age At Onset Heart disease Unknown Mother Diagnosis Age At Onset Heart disease Unknown Social History Social History Element Codes Description Effective Dates Tobacco history SNOMED CT: 7574205 Former smoker quit 15 years ago 08/07/2011 [...] Problems Condition Codes Effective Dates Condition Status Insomnia ICD-9: 780.52 ICD-10: G47.00 09/03/2016 Active [...] bronchitis ICD-9: 490 ICD-10: J40 08/07/2019 Active Chronic obstructive pulmonary disease with (acute) exa cerbation ICD-9: 491.21 ICD-10: J44.1 07/02/2017 Active Dyspepsia and other specified disorders of [...] R07.9 06/22/2016 Active Atherosclerotic heart disease of [place] coronary arter y without angina pectoris ICD-9: [...] Start Date Stop Date Status Fill Instructions Levemir FlexTouch U-100 Insulin 100 unit/mL (3 mL) sub cutaneous pen RxNorm: 753071 10 Unit(s) Subcutaneous every night at bedtime 12/22/2019 N o Stop Date Active baclofen 10 mg tablet RxNorm: 922084 1 Tablet(s) Oral QPM for p ain/spasm 12/22/2019 01/21/2020 Active ipratropium 0.5 mg-albuterol 3 mg (2.5 mg base)/3 mL n ebulization soln RxNorm: 7540973 USE 1 VIAL IN NEBULIZER Q4H (THIS REPLACES ALBUTEROL S OLUTION) 11/27/2019 12/16/2019 Inactive hydrocodone 10 mg-acetaminophen 325 mg tablet RxNorm: 434604 1 Tablet(s) Oral Q4H as needed for pain 11/13/2019 No Stop Date Active Seroquel 50 mg tablet RxNorm: 307538 1 Tablet(s) Oral QPM as ne eded for sleep 10/07/2019 12/21/2019 Inactive ropinirole 4 mg tablet RxNorm: 215256 3 TABLET(S) BY [facility] DAILY AT BEDTIME FOR RESTLESS LEGS 09/29/2019 12/27/2019 Active Generic For:REQU IP 4 MG TABLET 09/29/2019 7:52:42 AM N O T I C E Last quantity doesn't match original quantity ropinirole 4 mg tablet RxNorm: 328725 3 TABLET(S) BY [facility] DAILY AT BEDTIME FOR RESTLESS LEGS 09/26/2019 09/28/2019 Inactive Generic For:REQU IP 4 MG TABLET 09/26/2019 9:08:48 AM N O T I C E Last quantity doesn't match original quantity ipratropium 0.5 mg-albuterol 3 mg (2.5 mg base)/3 mL n ebulization soln RxNorm: 9542310 USE 1 VIAL IN NEBULIZER EVERY FOUR HOURS (THIS REPLACES ALBUTEROL SOLUTION) 09/26/2019 10/15/2019 Inactive Generic For:*DUO NEB 2.5-0.5 MG/3 ML SOLN 09/26/2019 9:08:53 AM hydrocodone 10 mg-acetaminophen 325 mg tablet RxNorm: 955224 1 Tablet(s) Oral Q4H as needed for pain 09/09/2019 09/09/2019 Inactive hydrocodone 10 mg-acetaminophen 325 mg tablet RxNorm: 062577 1 Tablet(s) Oral Q4H as needed for pain 09/09/2019 09/08/2019 Inactive ondansetron HCl 4 mg tablet RxNorm: 087358 1 Tablet(s) Oral QPM for nausea 08/12/2019 10/10/2019 Inactive ipratropium 0.5 mg-albuterol 3 mg (2.5 mg base)/3 mL n ebulization soln RxNorm: 4435121 1 Unit Dose INH Q4H 08/12/2019 09/25/2019 Inactive replaces albuterol solution Augmentin 875 mg-125 mg tablet RxNorm: 022375 1 Tablet(s) Oral two times a day 08/07/2019 08/17/2019 Inactive prednisone 20 mg tablet RxNorm: 931942 1 Tablet(s) Oral QD 08/05/2008/04/2019 Inactive prednisone 20 mg tablet RxNorm: 680710 1 Tablet(s) Oral QD 08/05/2008/06/2019 Inactive Levaquin 500 mg tablet RxNorm: 411186 1 Tablet(s) Oral QD Replaces azithromycin (z-pack) 07/31/2019 08/05/2019 Inactive Levaquin 500 mg tablet RxNorm: 403392 1 Tablet(s) Oral QD Replaces azithromycin (z-pack) 07/21/2019 07/26/2019 Inactive Levaquin 500 mg tablet RxNorm: 454200 1 Tablet(s) Oral QD Replaces azithromycin (z-pack) 07/21/2019 07/20/2019 Inactive Zithromax Z-Gui 250 mg tablet RxNorm: 436860 Tablet(s) Oral 07/22/2019 Inactive Zithromax Z-Gui 250 mg tablet RxNorm: 268094 Tablet(s) Oral 07/15/2019 Inactive Symbicort 160 mcg-4.5 mcg/actuation HFA aerosol inhaler RxNo rm: 8700570 2 Puff(s) Inhalation two times a day 07/14/2019 07/14/2019 Inactive Tessalon Perles 100 mg capsule RxNorm: 169476 1 Capsule(s) Oral Q8H as needed 07/14/2019 08/06/2019 Inactive Seroquel 50 mg tablet RxNorm: 488268 1 Tablet(s) Oral QPM as ne eded for sleep 07/01/2019 10/06/2019 Inactive ondansetron HCl 4 mg tablet RxNorm: 032874 1 Tablet(s) Oral QPM for nausea 06/24/2019 07/24/2019 Inactive Seroquel 25 mg tablet RxNorm: 986671 1 Tablet(s) Oral every nig ht at bedtime 06/19/2019 06/18/2019 Inactive Seroquel 25 mg tablet RxNorm: 844353 1 Tablet(s) Oral every nig ht at bedtime 06/19/2019 06/30/2019 Inactive trazodone 150 mg tablet RxNorm: 746055 1/2 Tablet(s) PO QHS as needed for sleep 06/11/2019 06/17/2019 Inactive replaces PA on doxep in trazodone 150 mg tablet RxNorm: 475606 1/2 Tablet(s) PO QHS as needed for sleep 05/12/2019 06/11/2019 Inactive replaces PA on doxep in Vitamin D3 5,000 unit tablet RxNorm: 875850 1 Tablet(s) PO QD 05/09 No Stop Date Active magnesium oxide 400 mg (241.3 mg magnesium) tablet RxNorm: 1 77832 1 Tablet(s) PO QHS 05/09/2019 No Stop Date Active cyanocobalamin (vit B-12) 1,000 mcg/mL injection solution Rx Norm: 399237 1 injection weekly for 4 weeks 1 Milliliter(s) Inj 05/09/2019 12/21/2019 Inactive ferrous sulfate 325 mg (65 mg iron) tablet RxNorm: 082885 1 Tab let(s) PO QD 05/09/2019 12/21/2019 Inactive ropinirole 4 mg tablet RxNorm: 793163 3 TABLET(S) BY [facility] DAILY AT BEDTIME FOR RESTLESS LEGS 03/26/2019 06/23/2019 Inactive Generic For:REQU IP 4 MG TABLET 03/26/2019 11:23:36 AM N O T I C E Last quantity doesn't match original quantity pantoprazole 40 mg tablet,delayed release RxNorm: 124228 Tablet(s) TAKE 1 TABLET BY MOUTH DAILY FOR STOMACH 03/24/2019 06/21/2019 Inactive Gener ic For:PROTONIX 40MG TAB EC 01/03/2019 1:23:44 PM hydroxyzine HCl 10 mg tablet RxNorm: 599027 1 Tablet(s) PO BID as needed 03/24/2019 04/06/2019 Inactive ipratropium-albuterol 0.5 mg-3 mg(2.5 mg base)/3 mL ne bulization soln RxNorm: 4154190 1 Unit Dose INH Q4H 03/21/2019 No Stop Date Active replaces albuterol solution meclizine 12.5 mg tablet RxNorm: 753757 1 Tablet(s) PO BID as neede d 03/21/2019 12/21/2019 Inactive losartan 100 mg tablet RxNorm: 156038 1 Tablet(s) PO QD replace s lisinopril 03/13/2019 09/08/2019 Inactive fluconazole 100 mg tablet RxNorm: 537382 1 Tablet(s) PO QD 03/13/20 19 03/19/2019 Inactive nystatin 100,000 unit/mL oral suspension RxNorm: 120489 5 Unit( s) PO QID 03/13/2019 03/26/2019 Inactive tramadol 50 mg tablet RxNorm: 518220 1 Tablet(s) PO TID as needed for pain TAKE 2 TABS OF EXTRA STRENGTH TYLENOL WITH EACH DOSE 03/10/2019 04/06/2019 Inactive Generic For:*ULTRAM 50 MG TABLET 01/15/2019 4:55:26 PM Sinemet CR 50 mg-200 mg tablet,extended release RxNorm: 8343 41 1 Tablet(s) PO TID 02/26/2019 08/24/2019 Inactive Generic For:*SIN EMET CR 50/200 TABLET SA 07/08/2018 3:09:11 PM trazodone 150 mg tablet RxNorm: 553425 1/2 Tablet(s) PO QHS as needed for sleep 02/13/2019 02/12/2019 Inactive trazodone 150 mg tablet RxNorm: 223970 1/2 Tablet(s) PO QHS as needed for sleep 02/13/2019 02/25/2019 Inactive replaces PA on doxep in doxepin 10 mg capsule RxNorm: 7464242 1-2 Capsule(s) PO QHS prn sleep 02/13/2019 02/13/2019 Inactive Novolog U-100 Insulin aspart 100 unit/mL subcutaneous soluti on RxNorm: 683597 INJECT 10 UNIT(S) SUBCUTANEOUSLY BEFORE MEALS 01/31/2019 05/30/2019 In active 01/31/2019 1:39:10 PM ipratropium-albuterol 0.5 mg-3 mg(2.5 mg base)/3 mL ne bulization soln RxNorm: 6242113 1 Unit Dose INH Q4H 01/17/2019 03/20/2019 Inactive replaces albuterol solution tramadol 50 mg tablet RxNorm: 984141 1 Tablet(s) PO TID as needed for pain TAKE 2 TABS OF EXTRA STRENGTH TYLENOL WITH EACH DOSE 01/15/2019 02/03/2019 Inactive Generic For:*ULTRAM 50 MG TABLET 01/15/2019 4:55:26 PM Sinemet CR 50 mg-200 mg tablet,extended release RxNorm: 8343 41 1 Tablet(s) PO BID 01/03/2019 02/25/2019 Inactive Generic For:*SIN EMET CR 50/200 TABLET SA 07/08/2018 3:09:11 PM losartan 100 mg tablet RxNorm: 912588 1 Tablet(s) PO QD replace s lisinopril 01/03/2019 03/12/2019 Inactive Symbicort 160 mcg-4.5 mcg/actuation HFA aerosol inhaler RxNo rm: 4737965 2 Puff(s) INH BID 01/03/2019 01/02/2019 Inactive pantoprazole 40 mg tablet,delayed release RxNorm: 548028 TAKE 1 TABLET BY MOUTH DAILY FOR STOMACH 01/03/2019 03/23/2019 Inactive Generic For:HI OTONIX 40MG TAB EC 01/03/2019 1:23:44 PM nystatin 100,000 unit/mL oral suspension RxNorm: 635611 Unit(s) 5 Unit(s) PO QID swish and spit 01/02/2019 11/11/2019 Inactive Incruse Ellipta 62.5 mcg/actuation powder for inhalation RxN orm: 8546293 1 Capsule(s) INH QD 12/25/2018 12/21/2019 Inactive Tessalon Perles 100 mg capsule RxNorm: 145166 1 Capsule(s) PO T ID for cough 12/25/2018 02/25/2019 Inactive Medrol (Gui) 4 mg tablets in a dose pack RxNorm: 024891 Tablet(s) PO Use as directed 12/23/2018 01/02/2019 Inactive Levemir FlexTouch U-100 Insulin 100 unit/mL (3 mL) sub cutaneous pen RxNorm: 988086 20 Unit(s) SQ QD with pen needles 12/13/2018 05/11/2019 Inactiv e prednisone 20 mg tablet RxNorm: 762570 1 Tablet(s) PO QD 12/12/2018 0 12/11/2018 Inactive prednisone 20 mg tablet RxNorm: 944210 1 Tablet(s) PO QD 12/12/2018 0 12/16/2018 Inactive promethazine 6.25 mg-codeine 10 mg/5 mL syrup RxNorm: 170568 5 Milliliter(s) PO QHS as needed for cough 12/09/2018 12/18/2018 Inactive cefdinir 300 mg capsule RxNorm: 714532 1 Capsule(s) PO BID 12/10/1912/18/2018 Inactive fluconazole 100 mg tablet RxNorm: 983814 1 Tablet(s) PO QD 12/06/1912/08/2018 Inactive ropinirole 4 mg tablet RxNorm: 444878 3 Tablet(s) PO QHS for re stless legs 12/04/2018 03/03/2019 Inactive Novolog U-100 Insulin aspart 100 unit/mL subcutaneous soluti on RxNorm: 595860 INJECT 10 UNIT(S) SUBCUTANEOUSLY BEFORE MEALS 12/04/2018 01/30/2019 In active 12/04/2018 10:02:42 AM nystatin 100,000 unit/mL oral suspension RxNorm: 089354 5 Unit(s) PO QID swish and spit 11/25/2018 12/18/2018 Inactive ropinirole 4 mg tablet RxNorm: 430260 3 Tablet(s) PO QHS for re stless legs 11/04/2018 12/03/2018 Inactive prednisone 20 mg tablet RxNorm: 786093 1 Tablet(s) PO BID 10/23/2018 10/29/2018 Inactive ropinirole 4 mg tablet RxNorm: 100625 3 Tablet(s) PO QHS for re stless legs 10/14/2018 11/04/2018 Inactive pantoprazole 40 mg tablet,delayed release RxNorm: 661830 1 Tablet(s) PO QD forstomach 10/10/2018 01/02/2019 Inactive Symbicort 160 mcg-4.5 mcg/actuation HFA aerosol inhaler RxNo rm: 4816157 2 Puff(s) INH BID 10/10/2018 01/03/2019 Inactive Novolog U-100 Insulin aspart 100 unit/mL subcutaneous soluti on RxNorm: 181739 INJECT 10 UNIT(S) SUBCUTANEOUSLY BEFORE MEALS 10/10/2018 12/03/2018 In active 10/10/2018 11:30:01 AM Sinemet CR 50 mg-200 mg tablet,extended release RxNorm: 8343 41 1 Tablet(s) PO BID 09/26/2018 01/03/2019 Inactive Generic For:*SIN EMET CR 50/200 TABLET SA 07/08/2018 3:09:11 PM ropinirole 4 mg tablet RxNorm: 809163 2 Tablet(s) PO QHS for re stless legs 09/18/2018 10/13/2018 Inactive metformin ER 1,000 mg tablet,extended release 24hr RxNorm: 1 259129 1 Tablet(s) PO BID 09/09/2018 12/18/2018 Inactive ropinirole 4 mg tablet RxNorm: 856443 2 Tablet(s) PO QHS for re stless legs 08/21/2018 09/17/2018 Inactive doxycycline hyclate 100 mg capsule RxNorm: 9903360 1 Capsule(s) PO BID 08/07/2018 08/13/2018 Inactive ropinirole 4 mg tablet RxNorm: 989647 1 Tablet(s) PO QHS replac es 1mg dose 08/07/2018 08/20/2018 Inactive ropinirole 2 mg tablet RxNorm: 519545 TAKE 3 TABLETS BY MOUTH DAILY AT BEDTIME DO NOT EXCEED 3 TABLETS PER DAY!!!! 07/31/2018 08/06/2018 Inactive Generic For:REQUIP 2 MG TABLET 07/30/2018 3:50:28 PM Symbicort 160 mcg-4.5 mcg/actuation HFA aerosol inhaler RxNo rm: 4525331 2 Puff(s) INH BID 07/12/2018 10/09/2018 Inactive Sinemet CR 50 mg-200 mg tablet,extended release RxNorm: 8343 41 TAKE 1 TABLET BY MOUTH TWICE DAILY 07/08/2018 09/26/2018 Inactive Generic For:*S INEMET CR 50/200 TABLET 07/08/2018 3:09:11 PM losartan 100 mg tablet RxNorm: 195707 1 Tablet(s) PO QD replace s lisinopril 06/17/2018 12/13/2018 Inactive Novolog U-100 Insulin aspart 100 unit/mL subcutaneous soluti on RxNorm: 442277 10 Unit(s) SQ AC 06/17/2018 10/09/2018 Inactive albuterol sulfate 2.5 mg/3 mL (0.083 %) solution for n ebulization RxNorm: 082536 Milliliter(s) INH USE 1 VIAL IN NEBULIZE R EVERY FOUR HOURS NEEDED FOR WHEEZING OR SHORTNESS OF BREATH 06/13/2018 01/16/2019 Inactive Generic For:*PROVENTIL 0.83 MG/ML SOLUTN 06/13/2013 2:04:46 PM ropinirole 2 mg tablet RxNorm: 616923 3 Tablet(s) PO QH S DO NOT EXCEED 6MG (3 TABLETS) PER DAY!!!! 06/13/2018 07/31/2018 Inactive atorvastatin 40 mg tablet RxNorm: 470561 Tablet(s) TAKE 1 TABLET BY MOUTH EVERY DAY 05/13/2018 12/18/2018 Inactive Generic For:LIPI TOR 40MG TAB 05/01/2018 8:37:31 AM Sinemet CR 50 mg-200 mg tablet,extended release RxNorm: 8343 41 1 Tablet(s) PO BID 05/08/2018 07/06/2018 Inactive Lidocaine Viscous 2 % mucosal solution RxNorm: 2926658 5 Milliliter(s) PO QID as needed 05/02/2018 08/06/2018 Inactive Diflucan 100 mg tablet RxNorm: 363360 1 Tablet(s) PO QD 05/02/2018 Inactive atorvastatin 40 mg tablet RxNorm: 845799 TAKE 1 TABLET BY MOUTH EVERY DAY 05/01/2018 05/13/2018 Inactive Generic For:LIPITOR 40MG TAB 05/01/2018 8:37:31 AM nystatin 100,000 unit/mL oral suspension RxNorm: 526770 5 Unit(s) PO QID (before meals and at bedtime) 04/24/2018 04/30/2018 Inactive Ventolin HFA 90 mcg/actuation aerosol inhaler RxNorm: 605714 2 Puff(s) INH Q4H as needed one inhaler for home and one inhaler for car 04/23/201812/18 Inactive Mucinex 600 mg tablet, extended release RxNorm: 482220 1 Tablet(s) PO BID for congestion 04/22/2018 05/21/2018 Inactive prednisone 10 mg tablet RxNorm: 912385 Tablet(s) PO as directeds 08/06/2018 Inactive ropinirole 2 mg tablet RxNorm: 697752 3 Tablet(s) PO QH S DO NOT EXCEED 6MG (3 TABLETS) PER DAY!!!! 04/09/2018 05/08/2018 Inactive gabapentin 300 mg capsule RxNorm: 704663 1-2 Capsule(s) PO QHS 07/0 02/201804/08/2018 Inactive ropinirole 2 mg tablet RxNorm: 068688 1 Tablet(s) PO QHS 03/28/2018 0 04/08/2018 Inactive gabapentin 300 mg capsule RxNorm: 969618 1-2 Capsule(s) PO QHS 02/2303/29/2018 Inactive gabapentin 300 mg capsule RxNorm: 745157 1-2 Capsule(s) PO QHS 02/2203/13/2018 Inactive gabapentin 300 mg capsule RxNorm: 254878 2 Capsule(s) PO QHS 201703/11/2018 Inactive ropinirole 2 mg tablet RxNorm: 064734 1 Tablet(s) PO QHS 02/28/2018 0 03/28/2018 Inactive ropinirole 2 mg tablet RxNorm: 426058 1 Tablet(s) PO QHS 02/28/2018 0 02/27/2018 Inactive gabapentin 300 mg capsule RxNorm: 394296 1 Capsule(s) PO QHS 201702/27/2018 Inactive pantoprazole 40 mg tablet,delayed release RxNorm: 499629 1 [facility]) [facility] 01/23/2018 05/22/2018 Inactive Voltaren 1 % topical gel RxNorm: 376224 1 Gram(s) TOP QID to ri ght knee 01/23/2018 02/04/2018 Inactive metformin ER 500 mg tablet,extended release 24hr RxNorm: 860 975 2 Tablet(s) PO BID 01/09/2018 12/08/2018 Inactive Requip 1 mg tablet RxNorm: 400465 1 Tablet(s) PO QHS 01/09/201802/27 Inactive prednisone 20 mg tablet RxNorm: 460208 1 Tablet(s) PO T ID for 3 days then 1 po BID for 3 days then one daily for 3 days 01/02/2018 02/03/2018 Inactiv e Levaquin 500 mg tablet RxNorm: 603989 1 Tablet(s) PO QD 01/02/2018 Inactive ProAir HFA 90 mcg/actuation aerosol inhaler RxNorm: 048305 2 Puff(s) INH Q4H as needed 12/28/2017 No Stop Date Active please switch to ventolin if insurance doesn't cover montelukast 10 mg tablet RxNorm: 759295 1 Tablet(s) PO QD 12/28/2017 02/03/2018 Inactive Levaquin 500 mg tablet RxNorm: 494187 1 Tablet(s) PO QD 12/21/2017 Inactive ProAir HFA 90 mcg/actuation aerosol inhaler RxNorm: 775991 2 Puff(s) INH Q4H as needed 12/21/2017 12/27/2017 Inactive please switch to ventolin if insurance doesn't cover doxycycline hyclate 100 mg tablet RxNorm: 115122 1 Tablet(s) PO BID 12/17/2017 12/26/2017 Inactive Levemir FlexTouch U-100 Insulin 100 unit/mL (3 mL) sub cutaneous pen RxNorm: 392593 20 Unit(s) SQ QD with pen needles---Due for labs 12/11/2017 02/03/2018 Inactive Requip 1 mg tablet RxNorm: 217312 1 Tablet(s) PO QHS 12/10/201712/09 Inactive Requip 1 mg tablet RxNorm: 809971 1 Tablet(s) PO QHS 12/10/201701/09 Inactive albuterol sulfate 2.5 mg/3 mL (0.083 %) solution for n ebulization RxNorm: 418775 Milliliter(s) INH USE 1 VIAL IN NEBULIZE R EVERY FOUR HOURS NEEDED FOR WHEEZING OR SHORTNESS OF BREATH 12/05/2017 06/13/2018 Inactive Generic For:*PROVENTIL 0.83 MG/ML SOLUTN 06/13/2013 2:04:46 PM Tudorza Pressair 400 mcg/actuation breath activated RxNorm: 0593514 1 Puff(s) INH BID 12/03/2017 12/10/2017 Inactive Levemir FlexTouch U-100 Insulin 100 unit/mL (3 mL) sub cutaneous pen RxNorm: 012494 10 Unit(s) SQ QD with pen needles---Due for labs 11/16/2017 12/10/2017 Inactive Zofran ODT 4 mg disintegrating tablet RxNorm: 738918 1 Tablet(s) PO Q4H as needed for nausea 10/17/2017 02/04/2018 Inactive Efudex 5 % topical cream RxNorm: 900112 Application TOP QD prn to precancer skin lesions 10/17/2017 02/03/2018 Inactive Sinemet CR 50 mg-200 mg tablet,extended release RxNorm: 8343 41 1 Tablet(s) PO BID 10/17/2017 02/05/2018 Inactive Sinemet CR 50 mg-200 mg tablet,extended release RxNorm: 8343 41 1 Tablet(s) PO QHS 09/25/2017 10/16/2017 Inactive gabapentin 600 mg tablet RxNorm: 950810 1 Tablet(s) PO BID 08/15/20 17 08/14/2017 Inactive gabapentin 600 mg tablet RxNorm: 505661 1 Tablet(s) PO BID 08/15/20 17 12/10/2017 Inactive Novolog U-100 Insulin aspart 100 unit/mL subcutaneous soluti on RxNorm: 713231 10 Unit(s) SQ AC 08/15/2017 02/03/2018 Inactive Novolog 100 unit/mL subcutaneous solution RxNorm: 089902 10 Uni t(s) SQ AC 08/13/2017 08/14/2017 Inactive prednisone 20 mg tablet RxNorm: 974822 2 Tablet(s) PO QD 08/02/2017 1 10/04/2016 Inactive gabapentin 600 mg tablet RxNorm: 139635 Tablet(s) 1 Tab let(s) PO QHS replaces 300mg dose 07/09/2017 08/14/2017 Inactive Breo Ellipta 100 mcg-25 mcg/dose powder for inhalation RxNor m: 0798598 1 Unit Dose INH QD 07/02/2017 08/30/2017 Inactive Tudorza Pressair 400 mcg/actuation breath activated RxNorm: 8296139 1 Puff(s) INH BID 06/18/2017 12/02/2017 Inactive gabapentin 600 mg tablet RxNorm: 561044 1 Tablet(s) PO QHS repl aces 300mg dose 06/14/2017 07/08/2017 Inactive metformin ER 1,000 mg tablet,extended release 24hr RxNorm: 1 891506 1 Tablet(s) PO BID 05/29/2017 01/08/2018 Inactive cyclobenzaprine 5 mg tablet RxNorm: 608039 1 Tablet(s) PO TID 05/2906/07/2017 Inactive metformin ER 1,000 mg tablet,extended release 24hr RxNorm: 8 53259 1 Tablet(s) PO BID 05/25/2017 05/28/2017 Inactive metformin ER 1,000 mg tablet,extended release 24hr RxNorm: 8 29161 1 Tablet(s) PO BID 05/22/2017 05/24/2017 Inactive Amaryl 2 mg tablet RxNorm: 094218 1 Tablet(s) PO BID 05/01/201702/03 Inactive glimepiride 2 mg tablet RxNorm: 612959 1 Tablet(s) PO BID 04/19/2017 02/03/2018 Inactive ferrous sulfate 325 mg (65 mg iron) tablet RxNorm: 424826 1 Tab let(s) PO QHS 04/17/2017 02/03/2018 Inactive Requip 4 mg tablet RxNorm: 789523 1 Tablet(s) PO BID 04/12/201704/11 Inactive Requip 4 mg tablet RxNorm: 170767 1 Tablet(s) PO BID 04/12/201704/15 Inactive Levemir FlexTouch 100 unit/mL (3 mL) subcutaneous insulin pe n RxNorm: 178535 10 Unit(s) SQ QD with pen needles---Due for labs 04/05/2017 11/15/2017 In active Silenor 3 mg tablet RxNorm: 057695 1 Tablet(s) PO QHS 04/05/201709/25 Inactive ropinirole 4 mg tablet RxNorm: 126840 1 Tablet(s) PO QHS 03/29/2017 0 04/01/2017 Inactive ropinirole 4 mg tablet RxNorm: 494404 1 Tablet(s) PO QHS 03/29/2017 0 03/28/2017 Inactive Requip 4 mg tablet RxNorm: 902845 1 Tablet(s) PO QHS 03/28/201704/01 Inactive gabapentin 600 mg tablet RxNorm: 921036 1 Tablet(s) PO QHS repl aces 300mg dose 03/28/2017 04/15/2017 Inactive Requip 4 mg tablet RxNorm: 936906 1 Tablet(s) PO QHS 03/23/201703/27 Inactive gabapentin 600 mg tablet RxNorm: 219181 1 Tablet(s) PO QHS 03/13/20 17 03/12/2017 Inactive gabapentin 600 mg tablet RxNorm: 794980 1 Tablet(s) PO QHS 03/13/20 17 03/27/2017 Inactive gabapentin 300 mg capsule RxNorm: 974524 1 Capsule(s) PO QPM 201603/12/2017 Inactive Generic For:NEURONTIN 300 MG CAPSULE 01/22/2017 10:10:39 AM losartan 100 mg tablet RxNorm: 855109 1 Tablet(s) PO QD replace s lisinopril 02/21/2017 06/17/2018 Inactive gabapentin 300 mg capsule RxNorm: 031895 TAKE 1 CAPSULE BY MOUT H EVERY EVENING 01/22/2017 02/21/2017 Inactive Generic For:NEURONTI N 300 MG CAPSULE 01/22/2017 10:10:39 AM gabapentin 300 mg capsule RxNorm: 129761 1 Capsule(s) PO QPM 201601/21/2017 Inactive Requip 4 mg tablet RxNorm: 989565 1 Tablet(s) PO QHS 12/21/201603/20 Inactive Effient 10 mg tablet RxNorm: 013293 1 Tablet(s) PO QD 12/12/201612/23 Inactive gabapentin 300 mg capsule RxNorm: 775655 1 Capsule(s) PO QPM 201612/03/2016 Inactive gabapentin 300 mg capsule RxNorm: 101576 1 Capsule(s) PO QPM 201612/13/2016 Inactive Requip 4 mg tablet RxNorm: 026759 1 Tablet(s) PO QHS 11/28/201612/21 Inactive atorvastatin 40 mg tablet RxNorm: 063363 Tablet(s) 1 Tablet(s) PO Q D 11/22/2016 08/18/2017 Inactive atorvastatin 40 mg tablet RxNorm: 859910 1 Tablet(s) PO QD 11/23/19 17 11/21/2016 Inactive ropinirole 1 mg tablet RxNorm: 969550 2.5 Tablet(s) PO QPM for legs/sleep 11/14/2016 11/27/2016 Inactive nystatin 100,000 unit/mL oral suspension RxNorm: 245556 5 Unit(s) PO QID swish and spit 10/31/2016 02/03/2018 Inactive fluconazole 100 mg tablet RxNorm: 875669 1 Tablet(s) PO QD 10/31/19 17 11/09/2016 Inactive doxycycline hyclate 100 mg capsule RxNorm: 2222914 1 Capsule(s) PO BID 10/03/2016 10/12/2016 Inactive Levemir FlexTouch 100 unit/mL (3 mL) subcutaneous insulin pe n RxNorm: 381936 10 Unit(s) SQ QD with pen needles 09/18/2016 04/04/2017 Inactive amitriptyline 25 mg tablet RxNorm: 717834 1 Tablet(s) P O QHS as needed for sleep 09/04/2016 10/17/2016 Inactive ropinirole 1 mg tablet RxNorm: 749195 1.5 Tablet(s) PO QPM for legs/sleep 09/04/2016 11/13/2016 Inactive amitriptyline 25 mg tablet RxNorm: 692165 1 Tablet(s) P O QHS as needed for sleep 08/22/2016 09/03/2016 Inactive clopidogrel 75 mg tablet RxNorm: 789681 1 Tablet(s) PO QD 08/10/2016 10/17/2016 Inactive Zoloft 100 mg tablet RxNorm: 180148 2 Tablet(s) PO QHS 08/10/2016 Inactive atorvastatin 40 mg tablet RxNorm: 584876 1 Tablet(s) PO QD 08/10/20 16 10/17/2016 Inactive ropinirole 1 mg tablet RxNorm: 770046 1 Tablet(s) PO QPM for le gs/sleep 08/10/2016 09/03/2016 Inactive losartan 100 mg tablet RxNorm: 475234 1 Tablet(s) PO QD replace s lisinopril 07/20/2016 02/21/2017 Inactive Zofran 4 mg tablet RxNorm: 748511 1 Tablet(s) PO Q4H as needed for nausea 07/06/2016 10/17/2016 Inactive Flagyl 500 mg tablet RxNorm: 533829 1 Tablet(s) PO TID 07/06/2016 Inactive Plavix 75 mg tablet RxNorm: 958672 1 Tablet(s) PO QD 06/08/201607/05 Inactive isosorbide mononitrate ER 30 mg tablet,extended release 24 h r RxNorm: 103160 1 Tablet(s) PO QAM 06/08/2016 08/09/2016 Inactive atorvastatin 40 mg tablet RxNorm: 876077 1 Tablet(s) PO QD 06/08/20 16 08/09/2016 Inactive hydrochlorothiazide 12.5 mg tablet RxNorm: 187146 1 Tablet(s) PO QA M 06/08/2016 07/05/2016 Inactive metformin ER 1,000 mg tablet,extended release 24hr RxNorm: 8 67215 1 Tablet(s) PO BID 06/08/2016 09/05/2016 Inactive metoprolol tartrate 25 mg tablet RxNorm: 947872 1/2 Tablet(s) PO BI D 06/08/2016 08/09/2016 Inactive Zoloft 100 mg tablet RxNorm: 170327 2 Tablet(s) PO QHS 04/03/2016 Inactive metformin ER 1,000 mg tablet,extended release 24hr RxNorm: 8 21208 Tablet(s) 1 Tablet(s) PO QD 03/30/2016 12/18/2018 Inactive Levemir FlexTouch 100 unit/mL (3 mL) subcutaneous insulin pe n RxNorm: 051935 10 Unit(s) SQ QD 03/09/2016 03/08/2016 Inactive Levemir FlexTouch 100 unit/mL (3 mL) subcutaneous insulin pe n RxNorm: 047993 10 Unit(s) SQ QD with pen needles 03/09/2016 03/20/2016 Inactive Mobic 15 mg tablet RxNorm: 218106 1 Tablet(s) PO QD for foot pain 0 02/17/2016 03/17/2016 Inactive Zoloft 100 mg tablet RxNorm: 809392 1 1/2 Tablet(s) PO QHS 01/31/20 16 04/02/2016 Inactive omeprazole 20 mg capsule,delayed release RxNorm: [id number] TAKE 2 CAPSULES BY MOUTH EVERY DAY 01/12/2016 08/09/2016 Inactive Generic For:*CHERYL LOSEC [address] 01/12/2016 8:58:34 AM Zoloft 100 mg tablet RxNorm: 459636 1/2 Tablet(s) PO QH S for 1 week then 1 tablet po q HS 12/30/2015 01/27/2016 Inactive Ventolin HFA 90 mcg/actuation aerosol inhaler RxNorm: 810076 2 Puff(s) INH QID as needed for shortness of breath 12/30/2015 02/03/2018 Inactive [AttnRPh: Saving apply/adjudicate RxGRP:SG20 RxBIN:[id number] RxPCN: ID#:[id number]] metformin ER 1,000 mg tablet,extended release 24hr RxNorm: 8 28945 1 Tablet(s) PO QD 12/20/2015 03/18/2016 Inactive clindamycin 300 mg capsule RxNorm: 677544 1 Capsule(s) PO TID 12/0512/15/2015 Inactive mupirocin 2 % topical cream RxNorm: 279658 TOP to facial lesion s twice daily 11/15/2015 12/15/2015 Inactive cefdinir 300 mg capsule RxNorm: 700744 1 Capsule(s) PO BID 11/15/19 16 11/24/2015 Inactive Medrol (Gui) 4 mg tablets in a dose pack RxNorm: 331851 Tablet(s) PO as directed 10/11/2015 12/15/2015 Inactive albuterol sulfate 2.5 mg/3 mL (0.083 %) solution for n ebulization RxNorm: 902065 INH USE 1 VIAL IN NEBULIZER EVERY FOUR H OURS NEEDED FOR WHEEZING OR SHORTNESS OF BREATH 10/05/2015 10/04/2015 Inactive Generic For:*PRO VENTIL 0.83 MG/ML SOLUTN 06/13/2013 2:04:46 PM doxycycline hyclate 100 mg capsule RxNorm: 7919272 1 Capsule(s) PO BID 10/05/2015 10/14/2015 Inactive albuterol sulfate 2.5 mg/3 mL (0.083 %) solution for n ebulization RxNorm: 949746 Milliliter(s) INH USE 1 VIAL IN NEBULIZE R EVERY FOUR HOURS NEEDED FOR WHEEZING OR SHORTNESS OF BREATH Dx: J44.9 10/05/2015 12/05/2017 Inacti ve Generic For:*PROVENTIL 0.83 MG/ML SOLUTN 06/13/2013 2:04:46 PM albuterol sulfate 2.5 mg/3 mL (0.083 %) solution for n ebulization RxNorm: 067720 3 Milliliter(s) INH USE 1 VIAL IN NEBULI ZER EVERY FOUR HOURS NEEDED FOR WHEEZING OR SHORTNESS OF BREATH 09/06/2015 10/04/2015 Inactive Generic For:*PROVENTIL 0.83 MG/ML SOLUTN 06/13/2013 2:04:46 PM Tradjenta 5 mg tablet RxNorm: 4914183 2 Tablet(s) PO QD 07/22/2015 Inactive albuterol sulfate 2.5 mg/3 mL (0.083 %) solution for n ebulization RxNorm: 603157 3 Milliliter(s) INH USE 1 VIAL IN NEBULI ZER EVERY FOUR HOURS NEEDED FOR WHEEZING OR SHORTNESS OF BREATH 06/29/2015 09/05/2015 Inactive Generic For:*PROVENTIL 0.83 MG/ML SOLUTN 06/13/2013 2:04:46 PM albuterol sulfate 2.5 mg/3 mL (0.083 %) solution for n ebulization RxNorm: 876694 Milliliter(s) INH USE 1 VIAL IN NEBULIZE R EVERY FOUR HOURS NEEDED FOR WHEEZING OR SHORTNESS OF BREATH 06/29/2015 12/04/2017 Inactive Generic For:*PROVENTIL 0.83 MG/ML SOLUTN 06/13/2013 2:04:46 PM doxycycline hyclate 100 mg tablet RxNorm: 654355 1 Tablet(s) PO BID 06/28/2015 07/07/2015 Inactive losartan 100 mg tablet RxNorm: 422603 1 Tablet(s) PO QD -replac es lisinopril 06/14/2015 09/05/2015 Inactive metformin ER 1,000 mg tablet,extended release 24hr RxNorm: 8 17942 1 Tablet(s) PO QD 06/14/2015 09/11/2015 Inactive losartan 100 mg tablet RxNorm: 476985 1 Tablet(s) PO QD -replac es lisinopril 06/14/2015 12/10/2015 Inactive Zocor 20 mg tablet RxNorm: 337325 Tablet(s) Tablet(s) 1 Tablet(s) PO QD -needs lipids labs 06/14/2015 06/14/2015 Inactive atorvastatin 40 mg tablet RxNorm: 725463 1 Tablet(s) PO QD repl aces simvastatin 06/14/2015 12/10/2015 Inactive loratadine 10 mg tablet RxNorm: 862676 Tablet(s) 1 Tablet(s) PO QD for drainage 06/14/2015 06/07/2016 Inactive Celexa 40 mg tablet RxNorm: 702755 1 Tablet(s) PO QD TA KE ONE (1) TABLET BY MOUTH DAILY 06/14/2015 12/29/2015 Inactive Generic For:HARJINDER XA 40 MG TABLET clindamycin 300 mg capsule RxNorm: 337150 2 Capsule(s) PO BID 06/0306/12/2015 Inactive metformin ER 1,000 mg tablet,extended release 24hr RxNorm: 8 86703 1 Tablet(s) PO QD 06/03/2015 06/02/2015 Inactive metformin ER 1,000 mg tablet,extended release 24hr RxNorm: 8 39869 1 Tablet(s) PO QD 06/03/2015 06/13/2015 Inactive mupirocin 2 % topical ointment RxNorm: 181370 TOP apply to open lesion of knee twice daily 06/03/2015 01/30/2016 Inactive Zocor 20 mg tablet RxNorm: 275203 Tablet(s) 1 Tablet(s ) PO QD -needs lipids labs 05/13/2015 06/13/2015 Inactive Celexa 40 mg tablet RxNorm: 343364 1 Tablet(s) PO QD TA KE ONE (1) TABLET BY MOUTH DAILY 05/13/2015 06/13/2015 Inactive Generic For:HARJINDER XA 40 MG TABLET Zocor 20 mg tablet RxNorm: 871924 Tablet(s) 1 Tablet(s ) PO QD -needs lipids labs 02/23/2015 03/24/2015 Inactive loratadine 10 mg tablet RxNorm: 216236 1 Tablet(s) PO QD for dr saenz 12/24/2014 06/13/2015 Inactive Zocor 20 mg tablet RxNorm: 481267 1 Tablet(s) PO QD -needs lipi ds labs 11/17/2014 02/23/2015 Inactive Celexa 40 mg tablet RxNorm: 097683 1 Tablet(s) PO QD 1 Tablet(s) PO QD 1 Tablet(s) PO QD Generic OKAY 11/11/2014 05/13/2015 Inactive Zocor 20 mg tablet RxNorm: 275497 1 Tablet(s) PO QD -needs lipi ds labs 11/11/2014 11/16/2014 Inactive omeprazole 20 mg capsule,delayed release RxNorm: 296085 2 Capsule(s) PO QD TAKE 2 CAPSULES BY MOUTH DAILY 10/27/2014 04/24/2015 Inactive Shena harp For:*PRILOSEC 20 MG CAPSULE trazodone 50 mg tablet RxNorm: 909569 1 1/2 Tablet(s) PO QHS 201412/29/2015 Inactive losartan 100 mg tablet RxNorm: 838162 1 Tablet(s) PO QD -replac es lisinopril 10/26/2014 04/23/2015 Inactive Levaquin 500 mg tablet RxNorm: 243174 1 Tablet(s) PO QD 10/08/2014 Inactive Levaquin 500 mg tablet RxNorm: 350198 1 Tablet(s) PO QD 10/08/2014 Inactive Diflucan 100 mg tablet RxNorm: 202263 1 Tablet(s) PO QD 10/06/2014 Inactive DuoNeb 0.5 mg-3 mg(2.5 mg base)/3 mL solution for nebulizati on RxNorm: 7425276 3 Milliliter(s) INH QID 09/23/2014 08/09/2016 Inactive Ventolin HFA 90 mcg/actuation aerosol inhaler RxNorm: 548641 2 Puff(s) INH QID as needed for shortness of breath 09/21/2014 12/29/2015 Inactive [AttnRPh: Saving apply/adjudicate RxGRP:SG20 RxBIN:[id number] RxPCN: ID#:[id number]] promethazine-codeine 6.25 mg-10 mg/5 mL syrup RxNorm: 956571 1 Teaspoon(s) PO QHS as needed for cough 09/08/2014 09/20/2014 Inactive prednisone 20 mg tablet RxNorm: 486662 1 Tablet(s) PO BID 09/02/2014 09/08/2014 Inactive promethazine-codeine 6.25 mg-10 mg/5 mL syrup RxNorm: 812372 1 Teaspoon(s) PO Q4H 09/02/2014 09/20/2014 Inactive doxycycline monohydrate 100 mg capsule RxNorm: 669843 1 Capsule (s) PO BID 09/02/2014 09/07/2014 Inactive Tessalon Perles 100 mg capsule RxNorm: 151823 1 Capsule (s) PO TID as needed for cough 08/31/2014 09/20/2014 Inactive Actos 15 mg tablet RxNorm: 448352 1 Tablet(s) PO QAM 1 Tablet(s ) PO QAM 08/26/2014 09/20/2014 Inactive loratadine 10 mg tablet RxNorm: 152634 1 Tablet(s) PO QD for dr saenz 08/26/2014 10/26/2014 Inactive Zithromax 500 mg tablet RxNorm: 950902 1 Tablet(s) PO QD 08/25/2014 1 11/01/2013 Inactive Zithromax 500 mg tablet RxNorm: 666005 1 Tablet(s) PO QD 08/25/2014 1 10/25/2013 Inactive Trazadone 75mg Tablet RxNorm: 1 Tablet(s) PO QHS 08/10/20142018 Inactive Zocor 20 mg tablet RxNorm: 580392 1 Tablet(s) PO QD 08/10/20142014 Inactive Trazadone 75mg Tablet RxNorm: 1 Tablet(s) PO QHS as need ed for sleep 08/10/2014 10/08/2014 Inactive Celexa 40 mg tablet RxNorm: 763118 1 Tablet(s) PO QD 1 Tablet(s) PO QD 1 Tablet(s) PO QD Generic OKAY 06/09/2014 10/06/2014 Inactive Actos 15 mg tablet RxNorm: 565929 1 Tablet(s) PO QAM 05/12/201408/26 Inactive lisinopril 20 mg tablet RxNorm: 799681 1 Tablet(s) PO QD 05/12/2014 0 10/26/2014 Inactive TAKE ONE TABLET BY MOUTH EVERY DAY;Gener ic For:*PRINIVIL 20 MG TABLET [AttnRPh: Saving apply/adjudicate RxGRP:SG20 RxBIN:[id number] RxPCN: ID#:[id number]] hydrocodone 5 mg-acetaminophen 325 mg tablet RxNorm: 841089 1 Tablet(s) PO TID as needed for pain for severe pain 04/30/2014 08/09/2014 Inactive hydrocodone 5 mg-acetaminophen 325 mg tablet RxNorm: 912924 1 Tablet(s) PO TID as needed for pain for severe pain 04/17/2014 04/29/2014 Inactive doxycycline hyclate 100 mg capsule RxNorm: 408800 1 Capsule(s) PO BID 03/05/2014 03/04/2014 Inactive doxycycline hyclate 100 mg capsule RxNorm: 998671 1 Capsule(s) PO BID 03/05/2014 03/14/2014 Inactive albuterol sulfate 2.5 mg/3 mL (0.083 %) solution for n ebulization RxNorm: 560333 Milliliter(s) INH USE 1 VIAL IN NEBULIZE R EVERY FOUR HOURS NEEDED FOR WHEEZING OR SHORTNESS OF BREATH 03/02/2014 06/29/2015 Inactive Generic For:*PROVENTIL 0.83 MG/ML SOLUTN 06/13/2013 2:04:46 PM Celexa 40 mg tablet RxNorm: 344608 1 Tablet(s) PO QD 1 Tablet(s) PO QD replaces lexapro. Generic OKAY 01/13/2014 06/09/2014 Inactive Actos 15 mg tablet RxNorm: 801018 1 Tablet(s) PO QAM 01/07/201405/12 Inactive lisinopril 20 mg tablet RxNorm: 059740 1 Tablet(s) PO QD 12/08/2013 0 05/12/2014 Inactive TAKE ONE TABLET BY MOUTH EVERY DAY;Gener ic For:*PRINIVIL 20 MG TABLET cefdinir 300 mg capsule RxNorm: 286353 2 Capsule(s) PO QD 11/10/2013 08/09/2014 Inactive cefdinir 300 mg capsule RxNorm: 211237 2 Capsule(s) PO QD 10/09/2013 10/15/2013 Inactive Actos 15 mg tablet RxNorm: 005989 1 Tablet(s) PO QAM 10/09/201301/06 Inactive doxycycline hyclate 100 mg capsule RxNorm: 4796339 1 Capsule(s) PO Q12H 09/18/2013 09/27/2013 Inactive omeprazole 20 mg capsule,delayed release RxNorm: 530489 2 Capsule(s) PO QD TAKE 2 CAPSULES BY MOUTH DAILY 09/03/2013 03/01/2014 Inactive Generi c For:*PRILOSEC [address] Celexa 40 mg tablet RxNorm: 936855 1 Tablet(s) PO QD re places lexapro. Generic OKAY 09/03/2013 01/13/2014 Inactive Symbicort 160 mcg-4.5 mcg/actuation HFA aerosol inhaler RxNo rm: 2319924 2 Puff(s) INH BID 08/13/2013 03/23/2014 Inactive metformin 1,000 mg tablet RxNorm: 241151 1 Tablet(s) PO BID 013 08/12/2013 Inactive TAKE ONE TABLET BY MOUTH TWI CE DAILY;Generic For:GLUCOPHAGE 1,000 MG TABLET 08/27/12 Thank you Actos 15 mg tablet RxNorm: 557801 1 Tablet(s) PO QAM 06/23/201310/09 Inactive lisinopril 20 mg tablet RxNorm: 120940 1 Tablet(s) PO QD 06/23/2013 0 12/08/2013 Inactive TAKE ONE TABLET BY MOUTH EVERY DAY;Gener ic For:*PRINIVIL 20 MG TABLET albuterol sulfate 2.5 mg/3 mL (0.083 %) solution for n ebulization RxNorm: 224560 Solution for Nebulization INH USE 1 VIAL IN NEBULIZER EVERY FOUR HOURS NEEDED FOR WHEEZING OR SHORTNESS OF BREATH 06/16/2013 03/01/2014 Inactive Generic For:*PROVENTIL 0.83 MG/ML SOLUTN 06/13/2013 2:04:46 PM prednisone 10 mg tablet RxNorm: 200612 1 Tablet(s) PO BID 04/09/2013 04/13/2013 Inactive AndroGel 1.25 gram/actuation (1%) Transdermal Gel Pump RxNorm: 2 34054 TD 04/09/2013 08/09/2014 Inactive APPLY 4 PUMPS OF GEL AT BEDTIME DIRECTED;WC (Appended: Controlled substance eRx refill - RxReferenceNumber: [id number]) azithromycin 250 mg tablet RxNorm: 459392 2 Tablet(s) PO QD 013 04/16/2013 Inactive Amaryl 2 mg tablet RxNorm: 573508 1 Tablet(s) PO BID N eeds appt in 1 month (around March 21) 02/18/2013 08/12/2013 Inactive Amaryl 2 mg tablet RxNorm: 421535 1 Tablet(s) PO BID 02/18/201302/17 Inactive metformin 1,000 mg tablet RxNorm: 410388 1 Tablet(s) PO BID 013 07/27/2013 Inactive TAKE ONE TABLET BY MOUTH TWI CE DAILY;Generic For:GLUCOPHAGE 1,000 MG TABLET 08/27/12 Thank you Actos 15 mg tablet RxNorm: 550104 1 Tablet(s) PO QAM 02/04/201306/03 Inactive albuterol sulfate 2.5 mg/3 mL (0.083 %) Neb Solution RxNorm: 241810 1 Unit Dose INH Q4H prn wheezing or shortness of breath 01/30/2013 06/15/2013 Inac tive Medrol (Gui) 4 mg tablets in a dose pack RxNorm: 466289 Tablet(s) PO as directed 01/20/2013 07/15/2013 Inactive cefdinir 300 mg capsule RxNorm: 386868 1 Capsule(s) PO BID anti biotic 01/20/2013 01/29/2013 Inactive lisinopril 20 mg tablet RxNorm: 719546 Tablet(s) PO 01/13/20132012 Inactive TAKE ONE TABLET BY MOUTH EVERY DAY;Gener ic For:*PRINIVIL 20 MG TABLET citalopram 40 mg tablet RxNorm: 585438 Tablet(s) PO 01/13/20132013 Inactive TAKE ONE (1) TABLET BY MOUTH DAILY;Gener ic For:CELEXA 40 MG TABLET omeprazole 20 mg capsule,delayed release RxNorm: 495479 Capsule(s) PO TAKE 2 CAPSULES BY MOUTH DAILY 11/15/2012 09/03/2013 Inactive Generic For:*PRILOSEC [address] amoxicillin 875 mg tablet RxNorm: 187367 1 Tablet(s) PO BID 013 10/28/2012 Inactive Actos 30 mg tablet RxNorm: 442193 1 Tablet(s) PO QD 09/23/20122011 Inactive Actos 15 mg tablet RxNorm: 801890 1 Tablet(s) PO QAM 09/23/201209/22 Inactive Actos 15 mg tablet RxNorm: 497973 1 Tablet(s) PO QAM 09/23/201202/04 Inactive prednisone 20 mg tablet RxNorm: 421416 1 Tablet(s) PO BID 08/28/2012 09/03/2012 Inactive doxycycline hyclate 100 mg tablet RxNorm: 3481722 1 Tablet(s) PO BI D 08/28/2012 09/06/2012 Inactive metformin 1,000 mg tablet RxNorm: 675236 Tablet(s) PO 08/27/201201/22 Inactive TAKE ONE TABLET BY MOUTH TWICE DAILY;Gen joshua For:GLUCOPHAGE 1,000 MG TABLET 08/27/12 Thank you citalopram 40 mg tablet RxNorm: 873515 Tablet(s) PO 07/30/20122012 Inactive TAKE ONE (1) TABLET BY MOUTH DAILY;Gener ic For:CELEXA 40 MG TABLET lisinopril 20 mg tablet RxNorm: 024381 Tablet(s) PO 07/30/20122012 Inactive TAKE ONE TABLET BY MOUTH EVERY DAY;Gener ic For:*PRINIVIL 20 MG TABLET AndroGel 1.25 gram/actuation (1%) Transdermal Gel Pump RxNor m: [id number] Gel in Metered-Dose Pump TD 07/09/2012 04/08/2013 Inactive APPLY 4 PUM PS OF GEL AT BEDTIME DIRECTED;WC (Appended: Controlled substance eRx refill - RxReferenceNumber: [id number]) citalopram 40 mg tablet RxNorm: 975268 Tablet(s) PO 07/01/20122011 Inactive TAKE ONE (1) TABLET BY MOUTH DAILY;Gener ic For:CELEXA 40 MG TABLET metformin 1,000 mg tablet RxNorm: 818088 1 Tablet(s) PO BID 012 08/25/2012 Inactive TAKE 1 TABLET BY MOUTH TWICE DAILY;Generic For:GLUCOPHAGE 1,000 MG TABLET meclizine 25 mg Tab RxNorm: 204205 1 Tablet(s) PO QID prn dizziness 05/09/2012 05/18/2012 Inactive lisinopril 20 mg tablet RxNorm: 380040 Tablet(s) PO QD 04/22/2012 Inactive TAKE ONE (1) TABLET BY MOUTH DAILY;Gener ic For:*PRINIVIL 20 MG TABLET metformin 1,000 mg tablet RxNorm: 214594 Tablet(s) PO 03/19/201212/2011 Inactive TAKE 1 TABLET BY MOUTH TWICE DAILY;Gener ic For:GLUCOPHAGE 1,000 MG TABLET cefdinir 300 mg Cap RxNorm: 775217 1 Capsule(s) PO BID 11/28/2011 Inactive cefdinir 300 mg Cap RxNorm: 560099 1 Capsule(s) PO BID 11/01/2011 Inactive citalopram 40 mg tablet RxNorm: 802593 Tablet(s) PO 10/30/20112011 Inactive TAKE ONE (1) TABLET BY MOUTH DAILY;Gener ic For:CELEXA 40 MG TABLET cefdinir 300 mg Cap RxNorm: 919779 1 Capsule(s) PO BID 10/02/2011 Inactive metformin 1,000 mg Tab RxNorm: 250182 1 Tablet(s) PO BID 09/28/2011 0 01/25/2012 Inactive citalopram 40 mg Tab RxNorm: 924630 1 Tablet(s) PO QD 09/28/201111/2011 Inactive omeprazole 20 mg capsule,delayed release RxNorm: 650772 2 Capsu le(s) PO QD 09/28/2011 03/25/2012 Inactive lisinopril 20 mg Tab RxNorm: 542212 Tablet(s) PO 08/21/2011 04/21/2012 Inactive TAKE ONE (1) TABLET BY MOUTH DAILY;Generic For:*PRINIVIL 20 MG TABLET AndroGel 1.25 gram/actuation (1%) Transdermal Gel Pump RxNor m: [id number] Gel in Metered-dose Pump TD 08/21/2011 07/09/2012 Inactive APPLY 4 PUM PS OF GEL AT BEDTIME DIRECTED (Appended: Controlled substance eRx refill - RxReferenceNumber: [id number]) Lantus Solostar 100 unit/mL (3 mL) Sub-Q Insulin Pen RxNorm: 760667 30 Unit(s) SQ QD 06/20/2011 05/08/2012 Inactive Lantus Solostar 100 unit/mL (3 mL) Sub-Q Insulin Pen RxNorm: 939033 30 Unit(s) SQ QD 06/19/2011 06/19/2011 Inactive metformin 1,000 mg Tab RxNorm: 677494 1 Tablet(s) PO BID 05/12/2011 1 11/09/2010 Inactive citalopram 40 mg Tab RxNorm: 705925 1 Tablet(s) PO QD 03/06/201105/2011 Inactive metformin 1,000 mg Tab RxNorm: 528001 1 Tablet(s) PO BID 12/27/2010 0 04/25/2011 Inactive lisinopril 20 mg Tab RxNorm: 389492 Tablet(s) PO TAKE 1 TABLET BY MOUTH EVERY DAY;Generic For:*PRINIVIL 20 MG TABLET 12/26/2010 08/20/2011 Inactive Ceftin 500 mg Tab RxNorm: 731780 1 Tablet(s) PO BID 12/19/20102010 Inactive omeprazole 20 mg Cap, Delayed Release RxNorm: 898121 2 Capsule( s) PO QD 09/13/2010 03/11/2011 Inactive Byetta 10 mcg/0.04 mL per dose Sub-Q Pen Injector RxNorm: 84 7913 1 Unit Dose SQ BID 09/07/2010 10/06/2010 Inactive Celexa 40 mg tablet RxNorm: 555961 1 Tablet(s) PO QD re places lexapro. Generic OKAY 08/09/2010 02/04/2011 Inactive Actos 30 mg Tab RxNorm: 074148 1 Tablet(s) PO QD 08/09/2010 04/02/2011 Inactive lisinopril 20 mg Tab RxNorm: 994439 1 Tablet(s) PO QD 08/09/201011/22 Inactive metformin 1,000 mg Tab RxNorm: 790384 1 Tablet(s) PO BID 08/09/2010 0 12/06/2010 Inactive Metformin 1,000 mg Tab RxNorm: 059210 1 Tablet(s) PO BID 04/26/2010 0 04/25/2010 Inactive metformin 1,000 mg Tab RxNorm: 179518 1 Tablet(s) PO BID 04/26/2010 1 Inactive Lomotil 2.5 mg-0.025 mg Tab RxNorm: 3004876 1 Tablet(s) PO TID 1-2 TABS THREE TIMES DAILY 04/05/2010 04/07/2010 Inactive Mupirocin 2 % Topical Cream RxNorm: 894202 TOP BID 04/05/201003/25 Inactive lisinopril 20 mg Tab RxNorm: 584252 1 Tablet(s) PO QD 03/29/201010/2009 Inactive Actos 30 mg Tab RxNorm: 060513 1 Tablet(s) PO QD 03/29/2010 07/26/2010 Inactive Lisinopril 20 mg Tab RxNorm: 089355 1 Tablet(s) PO QD 02/27/201001/2010 Inactive Actos 30 mg Tab RxNorm: 897438 1 Tablet(s) PO QD 02/14/2010 03/28/2010 Inactive Celexa 40 mg Tab RxNorm: 158996 1 Tablet(s) PO QD replaces lexapro 01/13/2010 07/11/2010 Inactive Cyclobenzaprine 10 mg Tab RxNorm: 947634 1 Tablet(s) PO TID prn spasm 12/23/2009 01/21/2010 Inactive Cyclobenzaprine 10 mg Tab RxNorm: 280123 1 Tablet(s) PO TID 010 12/22/2009 Inactive Hydrocodone-Acetaminophen 7.5 mg-750 mg Tab RxNorm: 928552 1 Ta blet(s) PO Q4-6H 12/23/2009 12/22/2009 Inactive aspirin 81 mg tablet RxNorm: 025491 1 Tablet(s) PO QD No Start Date Active isosorbide mononitrate ER 60 mg tablet,extended release 24 h r RxNorm: 159360 1 Tablet(s) PO QD No Start Date Active amlodipine 5 mg tablet RxNorm: 441545 1 Tablet(s) PO QD No Start Date Active Vitamin D3 1,000 unit tablet RxNorm: 211509 3 Tablet(s) PO QD No St art Date 10/26/2014 Inactive Lexapro 20 mg Tab RxNorm: 120121 1 Tablet(s) PO QD No Start Date 12/24 Inactive loperamide 2 mg tablet RxNorm: 275346 Tablet(s) PO PRN No Start Date 06/07/2016 Inactive Levemir FlexTouch U-100 Insulin 100 unit/mL (3 mL) sub cutaneous pen RxNorm: 462604 22 Unit(s) SQ QD No Start Date 12/21/2019 Inactive Janumet 50 mg-1,000 mg Tab RxNorm: 875062 1 Tablet(s) PO BID No Sta rt Date 01/12/2010 Inactive Levemir U-100 Insulin 100 unit/mL subcutaneous solution RxNo rm: 503830 10 Unit(s) SQ QHS No Start Date 12/08/2018 Inactive Medrol (Gui) 4 mg tablets in a dose pack RxNorm: 985916 Tablet(s) PO Use as directed No Start Date 12/22/2018 Inactive aspirin 325 mg tablet RxNorm: 325483 1 Tablet(s) PO QD No Start Date 08/09/2016 Inactive Efudex 5 % Topical Cream RxNorm: 078351 Application TOP QD prn fto skin lesion No Start Date 08/12/2013 Inactive nitroglycerin 0.4 mg sublingual tablet RxNorm: 913576 Tablet(s) SL as needed No Start Date 12/18/2018 Inactive levofloxacin 500 mg tablet RxNorm: 372551 1 Tablet(s) PO QD No Star t Date 08/06/2018 Inactive ferrous sulfate 325 mg (65 mg iron) tablet RxNorm: 656115 1 Tab let(s) PO QHS No Start Date 04/16/2017 Inactive fluorouracil 5 % topical cream RxNorm: 022662 1 TOP No Start James e 08/06/2018 Inactive Vitamin D3 1,000 unit capsule RxNorm: 511781 1 Capsule(s) PO QD No Start Date 02/03/2018 Inactive Hydrocodone-Acetaminophen 7.5 mg-750 mg Tab RxNorm: 394493 1 Ta blet(s) PO PRN No Start Date 08/09/2014 Inactive pantoprazole 40 mg tablet,delayed release RxNorm: 601374 1 Tabl et(s) PO QD No Start Date 01/22/2018 Inactive omeprazole 20 mg Cap, Delayed Release RxNorm: 713816 2 Capsule( s) PO QD No Start Date 09/12/2010 Inactive DuoNeb 0.5 mg-3 mg(2.5 mg base)/3 mL solution for nebulizati on RxNorm: 1670276 INH Q4H as needed No Start Date 10/22/2018 Inactive Lyrica 75 mg capsule RxNorm: 933724 2 Capsule(s) PO QHS No Start Da te 03/09/2019 Inactive isosorbide mononitrate ER 30 mg tablet,extended release 24 h r RxNorm: 174422 1 Tablet(s) PO QD No Start Date 12/08/2018 Inactive Tradjenta 5 mg tablet RxNorm: 6629027 1 Tablet(s) PO QD No Start Da te 08/09/2016 Inactive Tudorza Pressair 400 mcg/actuation breath activated RxNorm: 0390270 1 Puff(s) INH BID No Start Date 06/17/2017 Inactive Lantus Solostar 100 unit/mL (3 mL) Sub-Q Insulin Pen RxNorm: 864529 30 Unit(s) SQ QD No Start Date 06/18/2011 Inactive Requip 4 mg tablet RxNorm: 127397 1 Tablet(s) PO BID No Start Date Inactive Symbicort 160 mcg-4.5 mcg/actuation HFA aerosol inhaler RxNo rm: 3811553 2 Puff(s) INH BID No Start Date 07/11/2018 Inactive atorvastatin 40 mg tablet RxNorm: 333629 1 Tablet(s) PO QD No Start Date 12/18/2018 Inactive tramadol 50 mg tablet RxNorm: 116733 1 Tablet(s) PO TID as needed for pain (take alone with two extra strength tylenol) No Start Date 01/16/2019 Inactive Symbicort 160 mcg-4.5 mcg/actuation HFA aerosol inhaler RxNo rm: 8705098 2 Puff(s) INH BID No Start Date 08/12/2013 Inactive Vitamin D3 5,000 unit tablet RxNorm: 976844 1 Tablet(s) PO QD No St art Date 05/08/2019 Inactive albuterol sulfate 2.5 mg/3 mL (0.083 %) Neb Solution RxNorm: 609267 1 Unit Dose INH Q4H prn wheezing or shortness of breath No Start Date 01/29/2013 Inac tive Ranexa 500 mg tablet,extended release RxNorm: 688619 1 Tablet(s ) PO BID No Start Date 02/03/2018 Inactive Advair Diskus 500 mcg-50 mcg/dose powder for inhalation RxNo rm: 7087667 1 Puff(s) INH BID No Start Date 08/09/2016 Inactive clopidogrel 75 mg tablet RxNorm: 509914 1 Tablet(s) PO QD No Start Date 05/01/2018 Inactive metformin 1,000 mg Tab RxNorm: 865381 1 Tablet(s) PO BID No Start D ate 08/12/2013 Inactive Silenor 3 mg tablet RxNorm: 533573 1 Tablet(s) PO QHS No Start Date 0 04/04/2017 Inactive Medrol (Gui) 4 mg tablets in a dose pack RxNorm: 229238 Tablet(s) PO as directed No Start Date 01/19/2013 Inactive Requip 4 mg tablet RxNorm: 347468 1 Tablet(s) PO BID No Start Date Inactive clopidogrel 75 mg tablet RxNorm: 995878 1 Tablet(s) PO QD No Start Date 02/03/2018 Inactive Tradjenta 5 mg tablet RxNorm: 7844618 1 Tablet(s) PO QD No Start Da te 02/03/2018 Inactive ProAir HFA 90 mcg/Actuation Aerosol Inhaler RxNorm: 609122 2 Pu ff(s) INH PRN No Start Date 07/09/2012 Inactive Tessalon Perles 100 mg capsule RxNorm: 086705 1 Capsule (s) PO TID as needed for cough No Start Date 08/30/2014 Inactive ferrous sulfate 325 mg (65 mg iron) tablet RxNorm: 829497 1 Tab let(s) PO QD No Start Date 05/08/2019 Inactive pioglitazone 15 mg tablet RxNorm: 734000 1 Tablet(s) PO QD No Start Date 09/20/2014 Inactive Lexapro Oral RxNorm: Oral No Start Date 12/13/2009 Inactive Breo Ellipta 100 mcg-25 mcg/dose powder for inhalation RxNor m: 8721045 1 Puff(s) INH BID No Start Date 05/31/2015 Inactive Tylenol Extra Strength 500 mg tablet RxNorm: 844250 2 T ablet(s) PO QHS along with ropironole No Start Date 12/18/2018 Inactive tramadol 50 mg tablet RxNorm: 843307 1 Tablet(s) PO QID as need ed for pain No Start Date 12/24/2018 Inactive cyclobenzaprine 10 mg Tab RxNorm: 976812 Oral No Start Date 12/22 Inactive Levemir FlexTouch 100 unit/mL (3 mL) subcutaneous insulin pe n RxNorm: 296334 10 Unit(s) SQ QD No Start Date 03/08/2016 Inactive amlodipine 5 mg tablet RxNorm: 255455 1 Tablet(s) PO QD No Start Da te 08/09/2016 Inactive Novolog 100 unit/mL subcutaneous solution RxNorm: 817187 10 Uni t(s) SQ AC No Start Date 08/12/2017 Inactive Levemir FlexTouch 100 unit/mL (3 mL) subcutaneous insulin pe n RxNorm: 616503 25 Unit(s) SQ QPM No Start Date 08/06/2018 Inactive Farxiga 5 mg tablet RxNorm: 0550290 1 Tablet(s) PO QD No Start Date 0 10/05/2014 Inactive DuoNeb 0.5 mg-3 mg(2.5 mg base)/3 mL solution for nebulizati on RxNorm: 0295255 inhalation No Start Date 09/23/2014 Inactive Doxycycline 100 mg Cap RxNorm: 739198 1 Capsule(s) PO BID No Start Date 12/18/2010 Inactive Vitamin B12 1000mcg Tablet RxNorm: 1 Tablet(s) PO QD No Start Date 02/03/2018 Inactive Hydrocodone-Acetaminophen 7.5 mg-750 mg Tab RxNorm: 006495 1 Ta blet(s) PO Q6-8H No Start Date 12/22/2009 Inactive Xigduo XR 5 mg-1,000 mg tablet,extended release RxNorm: 1593 833 1 Tablet(s) PO QD No Start Date 05/31/2015 Inactive cyanocobalamin (vit B-12) 1,000 mcg/mL injection solution Rx Norm: 325717 1 injection weekly for 4 weeks 1 Milliliter(s) Inj No Start Date 05/08/2019 Inactive AndroGel 1.25 g/Actuation (1%) Transdermal Gel Pump RxNorm: 2642472 TD Apply 4pumps daily No Start Date 08/21/2011 Inactive Actoplus MET 15 mg-850 mg Tab RxNorm: 192577 1 Tablet(s) PO BID No Start Date 12/18/2010 Inactive Amaryl 2 mg tablet RxNorm: 432040 1 Tablet(s) PO BID No Start Date Inactive Levemir FlexTouch 100 unit/mL (3 mL) subcutaneous insulin pe n RxNorm: 918301 20 Unit(s) SQ QD No Start Date 06/12/2016 Inactive Symbicort 160 mcg-4.5 mcg/actuation HFA aerosol inhaler RxNo rm: 2146602 2 Puff(s) INH BID No Start Date 02/03/2018 Inactive Symbicort 160 mcg-4.5 mcg/Actuation Inhalation HFA Aer osol Inhaler RxNorm: 0470704 2 INH BID No Start Date 12/18/2010 Inactive Farxiga 5 mg tablet RxNorm: 0151015 1 Tablet(s) PO QD No Start Date 0 03/01/2015 Inactive magnesium oxide 400 mg (241.3 mg magnesium) tablet RxNorm: 1 89293 1 Tablet(s) PO QHS No Start Date 05/08/2019 Inactive Tradjenta 5 mg tablet RxNorm: 5084918 2 Tablet(s) PO QD No Start Da te 07/21/2015 Inactive Levemir FlexTouch U-100 Insulin 100 unit/mL (3 mL) sub cutaneous pen RxNorm: 580805 40 Unit(s) SQ QD No Start Date 08/06/2018 Inactive Sinemet CR 50 mg-200 mg tablet,extended release RxNorm: 8343 41 1 Tablet(s) PO QHS No Start Date 09/24/2017 Inactive metoprolol tartrate 25 mg tablet RxNorm: 995077 1/2 Tablet(s) P O BID No Start Date 02/03/2018 Inactive Requip 4 mg tablet RxNorm: 628194 1 Tablet(s) PO QHS No Start Date Inactive Ventolin HFA 90 mcg/actuation aerosol inhaler RxNorm: 345477 2 Puff(s) INH Q4H as needed No Start Date 04/22/2018 Inactive B12 5,000 mcg-100 mcg sublingual lozenge RxNorm: 942249 IM as d irected No Start Date 05/08/2019 Inactive ropinirole 1 mg tablet RxNorm: 278477 1 Tablet(s) PO QHS No Start D ate 08/06/2018 Inactive Percocet 5 mg-325 mg tablet RxNorm: 7963235 1 Tablet(s) PO Q4H as needed for pain (Dr Rizzo) No Start Date 10/22/2018 Inactive hydrocodone 5 mg-acetaminophen 325 mg tablet RxNorm: 828257 1 Tablet(s) PO TID as needed for pain for severe pain No Start Date 04/16/2014 Inactive scopolamine 1.5 mg 72 hr Transderm Patch RxNorm: 497067 Application TD Q72H for dizziness No Start Date 08/12/2013 Inactive ipratropium-albuterol 0.5 mg-3 mg(2.5 mg base)/3 mL ne bulization soln RxNorm: 5808889 1 Unit Dose INH Q4H No Start Date 01/16/2019 Inactive Medication Administered No Medication Administered data Immunizations Vaccine Codes Date Status Influenza CVX: 135 08/07/2019 Complete Pneumococcal CVX: 33 07/24/2017 Complete Influenza CVX: 135 06/13/2016 Complete Pneumococcal CVX: 133 06/13/2016 Complete Influenza CVX: 141 07/10/2012 Pneumovax Unknown 07/10/2012 Results Observation Observation Code Item Item Code Result Date S [facility] Location COMPLETE BLOOD COUNT 8333001 WBC 5.5 10e9/L 06/17/20 19 Unknown COMPLETE BLOOD COUNT [id number] RBC 3.92 10e12/L 2018 Unknown COMPLETE BLOOD COUNT 4469471 HEMOGLOBIN 10.9 g/dL 06/17/20 19 Unknown COMPLETE BLOOD COUNT 2435023 HEMATOCRIT 34.8 % 06/17/20 19 Unknown COMPLETE BLOOD COUNT 7447133 MCV 88.8 fL 9 Unknown COMPLETE BLOOD COUNT 1719110 MCH 27.8 pg 9 Unknown COMPLETE BLOOD COUNT 8878198 MCHC 31.3 g/dL 9 Unknown COMPLETE BLOOD COUNT 8968764 PLATELET COUNT 239 10e9/L Unknown COMPLETE BLOOD COUNT 1637364 Mean Plt Volume 10.0 fL Unknown COMPLETE BLOOD COUNT 8184462 Neut Auto 68.0 % 9 Unknown COMPLETE BLOOD COUNT 1461549 Lymph Auto 14.8 % 06/17/20 19 Unknown COMPLETE BLOOD COUNT 8129665 Rowan Auto 13.1 % 9 Unknown COMPLETE BLOOD COUNT 7509139 RDW 14.7 % 9 Unknown COMPLETE BLOOD COUNT 6881758 Eos Auto 3.6 % 9 Unknown COMPLETE BLOOD COUNT 2809978 Baso Auto 0.5 % 9 Unknown COMPLETE BLOOD COUNT 1444178 Neutrophil Abs 3.74 10e9/L Unknown COMPLETE BLOOD COUNT 2828803 Lymphocyte Abs 0.81 10e9/L Unknown COMPLETE BLOOD COUNT 8606092 Monocyte Abs 0.72 10e9/L 05/26 Unknown COMPLETE BLOOD COUNT 0910731 Eosinophil Abs 0.20 10e9/L Unknown COMPLETE BLOOD COUNT 3798093 RDW-SD 46.4 fL 9 Unknown COMPLETE BLOOD COUNT 2301698 Basophil Abs 0.03 10e9/L 05/26 Unknown IRON 26047 Iron 36 ug/dL 06/17/2019 Unknown VITAMIN B 12 60775 VITAMIN B12 540 pg/mL 06/17/2019 Unkn own GFR CALC 4725120 GFR Non Afr Amr 59 mL/min 06/17/2019 Unk nown GFR CALC 6191214 GFR Afr Amr >60 mL/min 06/17/2019 Unknow n ERYTHROCYTE SEDIMENTATION RATE 75345 Sed Rate 34 mm/hr 06/17/2019 Unknown THYROID STIMULATING HORMONE 67416 TSH 2.217 uIU/mL 06/17/2019 Unknown COMPREHENSIVE METABOLIC 38364 AST 12 U/L 2018 Unknown COMPREHENSIVE METABOLIC 12268 ALT 11 U/L 2018 Unknown COMPREHENSIVE METABOLIC 82670 BUN 17 mg/dL 2018 Unknown COMPREHENSIVE METABOLIC 07506 ALBUMIN 3.9 g/dL 2018 Unknown COMPREHENSIVE METABOLIC 18429 CHLORIDE 103 mmol/L 06/17 Unknown COMPREHENSIVE METABOLIC 57094 Bili Total 0.4 mg/dL 06/17 Unknown COMPREHENSIVE METABOLIC 34658 ALK PHOS 51 U/L 2018 Unknown COMPREHENSIVE METABOLIC 97439 SODIUM 140 mmol/L 06/17 Unknown COMPREHENSIVE METABOLIC 30987 CREATININE 1.20 mg/dL 05/26 Unknown COMPREHENSIVE METABOLIC 16602 CALCIUM 8.9 mg/dL 2018 Unknown COMPREHENSIVE METABOLIC 95471 POTASSIUM 4.5 mmol/L 06/17 Unknown COMPREHENSIVE METABOLIC 32778 Total Protein 6.1 g/dL Unknown COMPREHENSIVE METABOLIC 02083 Glucose 108 mg/dL 2018 Unknown COMPREHENSIVE METABOLIC 72378 Bicarbonate 27 mmol/L 05/26 Unknown COMPREHENSIVE METABOLIC 81992 AGAP 10 mmol/L 2018 Unknown FERRITIN 77904 FERRITIN 35.5 ng/mL 05/08/2019 Unknown VITAMIN D TOTAL (25 HYDROXY) 00877 Vitamin D 25 OH 26.0 ng/mL 05/08/2019 Unknown GLYCOSYLATED HEMOGLOBIN TEST 77930 Hgb A1c 46412-8 8.2 % 0 05/08/2019 Unknown MEAN GLUC 2776219 Calc Mean Gluc 189 mg/dL 05/08/2019 Unkn own GFR CALC 7904285 GFR Non Afr Amr >60 mL/min 05/08/2019 Un known GFR CALC 2252805 GFR Afr Amr >60 mL/min 05/08/2019 Unknow n VITAMIN B 12 12296 VITAMIN B12 197 pg/mL 05/08/2019 Unkn own IRON 09984 Iron 34 ug/dL 05/08/2019 Unknown COMPLETE BLOOD COUNT 7802656 WBC 6.9 10e9/L 05/08/20 19 Unknown COMPLETE BLOOD COUNT 7160924 RBC 3.95 10e12/L 2018 Unknown COMPLETE BLOOD COUNT 1579641 HEMOGLOBIN 11.1 g/dL 05/08/20 19 Unknown COMPLETE BLOOD COUNT 5434472 HEMATOCRIT 34.9 % 05/08/20 19 Unknown COMPLETE BLOOD COUNT 2522384 MCV 88.4 fL 9 Unknown COMPLETE BLOOD COUNT 7346029 MCH 28.1 pg 9 Unknown COMPLETE BLOOD COUNT 0543889 MCHC 31.8 g/dL 9 Unknown COMPLETE BLOOD COUNT 2327791 PLATELET COUNT 217 10e9/L Unknown COMPLETE BLOOD COUNT 1380923 Mean Plt Volume 9.6 fL Unknown COMPLETE BLOOD COUNT 0696897 Neut Auto 77.6 % 9 Unknown COMPLETE BLOOD COUNT 6538788 Lymph Auto 10.7 % 05/08/20 19 Unknown COMPLETE BLOOD COUNT 6878215 Rowan Auto 10.4 % 9 Unknown COMPLETE BLOOD COUNT 7155069 RDW 14.7 % 9 Unknown COMPLETE BLOOD COUNT 8901361 Eos Auto 1.2 % 9 Unknown COMPLETE BLOOD COUNT 8017574 Baso Auto 0.1 % 9 Unknown COMPLETE BLOOD COUNT 5145219 Neutrophil Abs 5.35 10e9/L Unknown COMPLETE BLOOD COUNT 5980632 Lymphocyte Abs 0.74 10e9/L Unknown COMPLETE BLOOD COUNT 7701554 Monocyte Abs 0.72 10e9/L 04/24 Unknown COMPLETE BLOOD COUNT 3953411 Eosinophil Abs 0.08 10e9/L Unknown COMPLETE BLOOD COUNT 2971430 RDW-SD 46.6 fL 9 Unknown COMPLETE BLOOD COUNT 0971562 Basophil Abs 0.01 10e9/L 04/24 Unknown COMPREHENSIVE METABOLIC 79030 AST 13 U/L 2018 Unknown COMPREHENSIVE METABOLIC 02335 ALT 9 U/L 2018 Unknown COMPREHENSIVE METABOLIC 11569 BUN 18 mg/dL 2018 Unknown COMPREHENSIVE METABOLIC 18017 ALBUMIN 4.3 g/dL 2018 Unknown COMPREHENSIVE METABOLIC 04102 CHLORIDE 99 mmol/L 2018 Unknown COMPREHENSIVE METABOLIC 60160 Bili Total 0.4 mg/dL 05/08 Unknown COMPREHENSIVE METABOLIC 32731 ALK PHOS 48 U/L 2018 Unknown COMPREHENSIVE METABOLIC 82042 SODIUM 137 mmol/L 05/08 Unknown COMPREHENSIVE METABOLIC 76577 CREATININE 0.79 mg/dL 04/24 Unknown COMPREHENSIVE METABOLIC 13993 CALCIUM 9.5 mg/dL 2018 Unknown COMPREHENSIVE METABOLIC 09984 POTASSIUM 4.0 mmol/L 05/08 Unknown COMPREHENSIVE METABOLIC 33285 Total Protein 6.3 g/dL Unknown COMPREHENSIVE METABOLIC 41240 Glucose 232 mg/dL 2018 Unknown COMPREHENSIVE METABOLIC 10831 Bicarbonate 27 mmol/L 04/24 Unknown COMPREHENSIVE METABOLIC 55949 AGAP 11 mmol/L 2018 Unknown GLYCOSYLATED HEMOGLOBIN TEST 20781 Hgb A1c 81708-5 8.9 % 0 12/10/2018 Unknown MEAN GLUC 4519284 Calc Mean Gluc 209 mg/dL 12/10/2018 Unkn own LIPID GROUP 35456 Cholesterol 145 mg/dL 12/09/2018 Unkno wn LIPID GROUP 88467 Triglyceride 235 mg/dL 12/09/2018 Unkn own LIPID GROUP 28579 HDL CHOLESTEROL 40 mg/dL 12/09/2018 U nknown LIPID GROUP 65188 Chol/HDL Ratio 3.62 ratio 12/09/2018 U nknown LIPID GROUP 18561 NON-HDL Chol 105 mg/dL 12/09/2018 Unkn own LIPID GROUP 10538 LDL Cholesterol 58 mg/dL 12/09/2018 U nknown THYROID STIMULATING HORMONE 59687 TSH 1.071 uIU/mL 12/09/2018 Unknown GFR CALC 2520533 GFR Non Afr Amr >60 mL/min 12/09/2018 Un known GFR CALC 8399326 GFR Afr Amr >60 mL/min 12/09/2018 Unknow n COMPLETE BLOOD COUNT 4103348 WBC 7.6 10e9/L 12/10/19 19 Unknown COMPLETE BLOOD COUNT 6237724 RBC 3.97 10e12/L 2018 Unknown COMPLETE BLOOD COUNT 1203238 HEMOGLOBIN 11.4 g/dL 12/10/19 19 Unknown COMPLETE BLOOD COUNT 0970599 HEMATOCRIT 35.8 % 12/10/19 19 Unknown COMPLETE BLOOD COUNT 6753820 MCV 90.2 fL 9 Unknown COMPLETE BLOOD COUNT 9249736 MCH 28.7 pg 9 Unknown COMPLETE BLOOD COUNT 6785540 MCHC 31.8 g/dL 9 Unknown COMPLETE BLOOD COUNT 9258542 PLATELET COUNT 200 10e9/L Unknown COMPLETE BLOOD COUNT 9404175 Mean Plt Volume 10.1 fL Unknown COMPLETE BLOOD COUNT 5960871 Neut Auto 79.0 % 9 Unknown COMPLETE BLOOD COUNT 2120090 Lymph Auto 8.3 % 12/10/19 19 Unknown COMPLETE BLOOD COUNT 0800601 Rowan Auto 10.8 % 9 Unknown COMPLETE BLOOD COUNT 8842036 RDW 14.6 % 9 Unknown COMPLETE BLOOD COUNT 7417572 Eos Auto 1.5 % 9 Unknown COMPLETE BLOOD COUNT 2381467 Baso Auto 0.4 % 9 Unknown COMPLETE BLOOD COUNT 8018169 Neutrophil Abs 6.00 10e9/L Unknown COMPLETE BLOOD COUNT 1222095 Lymphocyte Abs 0.63 10e9/L Unknown COMPLETE BLOOD COUNT 6238101 Monocyte Abs 0.82 10e9/L 11/22 Unknown COMPLETE BLOOD COUNT 2418457 Eosinophil Abs 0.11 10e9/L Unknown COMPLETE BLOOD COUNT 0784517 RDW-SD 46.9 fL 9 Unknown COMPLETE BLOOD COUNT 8494817 Basophil Abs 0.03 10e9/L 11/22 Unknown COMPREHENSIVE METABOLIC 00078 AST 11 U/L 2018 Unknown COMPREHENSIVE METABOLIC 38222 ALT 11 U/L 2018 Unknown COMPREHENSIVE METABOLIC 97177 BUN 21 mg/dL 2018 Unknown COMPREHENSIVE METABOLIC 07187 ALBUMIN 4.7 g/dL 2018 Unknown COMPREHENSIVE METABOLIC 63799 CHLORIDE 99 mmol/L 2018 Unknown COMPREHENSIVE METABOLIC 65152 Bili Total 0.4 mg/dL 12/09 Unknown COMPREHENSIVE METABOLIC 69903 ALK PHOS 73 U/L 2018 Unknown COMPREHENSIVE METABOLIC 17733 SODIUM 137 mmol/L 12/09 Unknown COMPREHENSIVE METABOLIC 71612 CREATININE 1.12 mg/dL 11/22 Unknown COMPREHENSIVE METABOLIC 79522 CALCIUM 9.4 mg/dL 2018 Unknown COMPREHENSIVE METABOLIC 94409 POTASSIUM 4.2 mmol/L 12/09 Unknown COMPREHENSIVE METABOLIC 45926 Total Protein 6.8 g/dL Unknown COMPREHENSIVE METABOLIC 97557 Glucose 194 mg/dL 2018 Unknown COMPREHENSIVE METABOLIC 07950 Bicarbonate 30 mmol/L 11/22 Unknown COMPREHENSIVE METABOLIC 93676 AGAP 8 mmol/L 2018 Unknown FREE T4 98470 T4 Free 0.86 ng/dL 12/09/2018 Unknown COMPLETE BLOOD COUNT 5555730 WBC 6.8 10e9/L 04/17/20 17 Unknown COMPLETE BLOOD COUNT 3799825 RBC 3.86 10e12/L 2016 Unknown COMPLETE BLOOD COUNT 2828059 HEMOGLOBIN 9.8 g/dL 04/17/20 17 Unknown COMPLETE BLOOD COUNT 6495280 HEMATOCRIT 31.1 % 04/17/20 17 Unknown COMPLETE BLOOD COUNT 8822720 MCV 80.6 fL 7 Unknown COMPLETE BLOOD COUNT 6103019 MCH 25.4 pg 7 Unknown COMPLETE BLOOD COUNT 0999616 MCHC 31.5 g/dL 7 Unknown COMPLETE BLOOD COUNT 6757516 PLATELET COUNT 247 10e9/L Unknown COMPLETE BLOOD COUNT 0459684 Mean Plt Volume 9.7 fL Unknown COMPLETE BLOOD COUNT 9951182 Neut Auto 74.1 % 7 Unknown COMPLETE BLOOD COUNT 9363210 Lymph Auto 12.0 % 04/17/20 17 Unknown COMPLETE BLOOD COUNT 4276810 Rowan Auto 10.8 % 7 Unknown COMPLETE BLOOD COUNT 6315288 RDW 15.9 % 7 Unknown COMPLETE BLOOD COUNT 2232093 Eos Auto 2.5 % 7 Unknown COMPLETE BLOOD COUNT 1952411 Baso Auto 0.6 % 7 Unknown COMPLETE BLOOD COUNT 1891589 Neutrophil Abs 5.04 10e9/L Unknown COMPLETE BLOOD COUNT 3032512 Lymphocyte Abs 0.82 10e9/L Unknown COMPLETE BLOOD COUNT 9259648 Monocyte Abs 0.73 10e9/L 03/25 Unknown COMPLETE BLOOD COUNT 4642571 Eosinophil Abs 0.17 10e9/L Unknown COMPLETE BLOOD COUNT 1141798 RDW-SD 44.4 fL 7 Unknown COMPLETE BLOOD COUNT 7346018 Basophil Abs 0.04 10e9/L 03/25 Unknown MEAN GLUC 3629558 Calc Mean Gluc 223 mg/dL 04/17/2017 Unkn own GFR CALC 7243260 GFR Non Afr Amr >60 mL/min 04/17/2017 Un known GFR CALC 4334003 GFR Afr Amr >60 mL/min 04/17/2017 Unknow n GLYCOSYLATED HEMOGLOBIN TEST 82983 Hgb A1c 05944-3 9.4 % 0 04/17/2017 Unknown IRON 99910 Iron 37 ug/dL 04/17/2017 Unknown VITAMIN B 12 24354 VITAMIN B12 280 pg/mL 04/17/2017 Unkn own THYROID STIMULATING HORMONE 34545 TSH 2.481 uIU/mL 04/17/2017 Unknown COMPREHENSIVE METABOLIC 63163 AST 13 U/L 2016 Unknown COMPREHENSIVE METABOLIC 06053 ALT 12 U/L 2016 Unknown COMPREHENSIVE METABOLIC 88598 BUN 18 mg/dL 2016 Unknown COMPREHENSIVE METABOLIC 68187 ALBUMIN 4.7 g/dL 2016 Unknown COMPREHENSIVE METABOLIC 57565 CHLORIDE 103 mmol/L 04/17 Unknown COMPREHENSIVE METABOLIC 49273 Bili Total 0.4 mg/dL 04/17 Unknown COMPREHENSIVE METABOLIC 77735 ALK PHOS 49 U/L 2016 Unknown COMPREHENSIVE METABOLIC 94987 SODIUM 140 mmol/L 04/17 Unknown COMPREHENSIVE METABOLIC 96518 CREATININE 1.14 mg/dL 03/25 Unknown COMPREHENSIVE METABOLIC 72602 CALCIUM 9.4 mg/dL 2016 Unknown COMPREHENSIVE METABOLIC 92919 POTASSIUM 4.4 mmol/L 04/17 Unknown COMPREHENSIVE METABOLIC 42113 Total Protein 6.7 g/dL Unknown COMPREHENSIVE METABOLIC 18186 Glucose 266 mg/dL 2016 Unknown COMPREHENSIVE METABOLIC 30189 Bicarbonate 25 mmol/L 03/25 Unknown COMPREHENSIVE METABOLIC 32519 AGAP 12 mmol/L 2016 Unknown FERRITIN 21423 FERRITIN 10.0 ng/mL 04/17/2017 Unknown COMPLETE BLOOD COUNT 0484584 WBC 6.8 10e9/L 12/22/19 17 Unknown COMPLETE BLOOD COUNT 9514948 RBC 3.70 10e12/L 2016 Unknown COMPLETE BLOOD COUNT 6086777 HEMOGLOBIN 8.0 g/dL 12/22/19 17 Unknown COMPLETE BLOOD COUNT 0293903 HEMATOCRIT 26.7 % 12/22/19 17 Unknown COMPLETE BLOOD COUNT 5092455 MCV 72.2 fL 7 Unknown COMPLETE BLOOD COUNT 0618996 MCH 21.6 pg 7 Unknown COMPLETE BLOOD COUNT 2269001 MCHC 30.0 g/dL 7 Unknown COMPLETE BLOOD COUNT 6786531 PLATELET COUNT 290 10e9/L Unknown COMPLETE BLOOD COUNT 5599924 Mean Plt Volume 9.3 fL Unknown COMPLETE BLOOD COUNT 4632386 Neut Auto 80.2 % 7 Unknown COMPLETE BLOOD COUNT 1581868 Lymph Auto 9.8 % 12/22/19 17 Unknown COMPLETE BLOOD COUNT 3546537 Rowan Auto 8.1 % 7 Unknown COMPLETE BLOOD COUNT 4299739 RDW 17.4 % 7 Unknown COMPLETE BLOOD COUNT 6860373 Eos Auto 1.5 % 7 Unknown COMPLETE BLOOD COUNT 5441005 Baso Auto 0.4 % 7 Unknown COMPLETE BLOOD COUNT 1713550 Neutrophil Abs 5.45 10e9/L Unknown COMPLETE BLOOD COUNT 4823231 Lymphocyte Abs 0.67 10e9/L Unknown COMPLETE BLOOD COUNT 8466316 Monocyte Abs 0.55 10e9/L 11/24 Unknown COMPLETE BLOOD COUNT 1521505 Eosinophil Abs 0.10 10e9/L Unknown COMPLETE BLOOD COUNT 0629388 RDW-SD 44.1 fL 7 Unknown COMPLETE BLOOD COUNT 3354542 Basophil Abs 0.03 10e9/L 11/24 Unknown COMPLETE BLOOD COUNT 1620300 WBC 7.6 10e9/L 12/13/19 17 Unknown COMPLETE BLOOD COUNT 4766482 RBC 3.71 10e12/L 2016 Unknown COMPLETE BLOOD COUNT 7110103 HEMOGLOBIN 8.0 g/dL 12/13/19 17 Unknown COMPLETE BLOOD COUNT 5326093 HEMATOCRIT 27.3 % 12/13/19 17 Unknown COMPLETE BLOOD COUNT 2232995 MCV 73.6 fL 7 Unknown COMPLETE BLOOD COUNT 5369745 MCH 21.6 pg 7 Unknown COMPLETE BLOOD COUNT 3964809 MCHC 29.3 g/dL 7 Unknown COMPLETE BLOOD COUNT 7481090 PLATELET COUNT 330 10e9/L Unknown COMPLETE BLOOD COUNT 4381457 Mean Plt Volume 9.7 fL Unknown COMPLETE BLOOD COUNT 4940680 Neut Auto 73.2 % 7 Unknown COMPLETE BLOOD COUNT 3896172 Lymph Auto 14.5 % 12/13/19 17 Unknown COMPLETE BLOOD COUNT 8901104 Rowan Auto 10.5 % 7 Unknown COMPLETE BLOOD COUNT 1805573 RDW 17.3 % 7 Unknown COMPLETE BLOOD COUNT 7926975 Eos Auto 1.3 % 7 Unknown COMPLETE BLOOD COUNT 9638935 Baso Auto 0.5 % 7 Unknown COMPLETE BLOOD COUNT 2067196 Neutrophil Abs 5.56 10e9/L Unknown COMPLETE BLOOD COUNT 1276462 Lymphocyte Abs 1.10 10e9/L Unknown COMPLETE BLOOD COUNT 4429772 Monocyte Abs 0.80 10e9/L 11/23 Unknown COMPLETE BLOOD COUNT 1479534 Eosinophil Abs 0.10 10e9/L Unknown COMPLETE BLOOD COUNT 4874298 RDW-SD 45.2 fL 7 Unknown COMPLETE BLOOD COUNT 8396469 Basophil Abs 0.04 10e9/L 11/23 Unknown IRON 66623 Iron 69 ug/dL 03/09/2016 Unknown VITAMIN B 12 34050 VITAMIN B12 311 pg/mL 03/09/2016 Unkn own MEAN GLUC 5348562 Mean Glucose 260 mg/dL 03/07/2016 Unknow n GLYCOSYLATED HEMOGLOBIN TEST 64305 Hgb A1c 11898-3 10.7 % 0 03/07/2016 Unknown COMPREHENSIVE METABOLIC 06167 AST 14 U/L 2015 Unknown COMPREHENSIVE METABOLIC 30696 ALT 21 U/L 2015 Unknown COMPREHENSIVE METABOLIC 56152 BUN 27 mg/dL 2015 Unknown COMPREHENSIVE METABOLIC 83739 ALBUMIN 4.5 g/dL 2015 Unknown COMPREHENSIVE METABOLIC 39661 CHLORIDE 101 mmol/L 03/06 Unknown COMPREHENSIVE METABOLIC 74885 Bili Total 0.4 mg/dL 03/06 Unknown COMPREHENSIVE METABOLIC 58054 ALK PHOS 49 U/L 2015 Unknown COMPREHENSIVE METABOLIC 39134 SODIUM 136 mmol/L 03/06 Unknown COMPREHENSIVE METABOLIC 43622 CREATININE 1.16 mg/dL 02/22 Unknown COMPREHENSIVE METABOLIC 90427 CALCIUM 9.9 mg/dL 2015 Unknown COMPREHENSIVE METABOLIC 64995 POTASSIUM 4.5 mmol/L 03/06 Unknown COMPREHENSIVE METABOLIC 70688 Total Protein 6.7 g/dL Unknown COMPREHENSIVE METABOLIC 63765 Glucose 245 mg/dL 2015 Unknown COMPREHENSIVE METABOLIC 41448 Bicarbonate 24 mmol/L 02/22 Unknown COMPREHENSIVE METABOLIC 26519 AGAP 11 mmol/L 2015 Unknown THYROID STIMULATING HORMONE 11434 TSH 0.775 uIU/mL 03/06/2016 Unknown TESTOSTERONE TOTAL 05059 Testos Total 96 ng/dL 03/06/20 16 Unknown LIPID GROUP 05759 Cholesterol 146 mg/dL 03/06/2016 Unkno wn LIPID GROUP 29347 Triglyceride 249 mg/dL 03/06/2016 Unkn own LIPID GROUP 69590 HDL CHOLESTEROL 46 mg/dL 03/06/2016 U nknown LIPID GROUP 60483 Chol/HDL Ratio 3.17 ratio 03/06/2016 U nknown LIPID GROUP 81474 NON-HDL Chol 100 mg/dL 03/06/2016 Unkn own LIPID GROUP 81480 LDL Cholesterol 50 mg/dL 03/06/2016 U nknown COMPLETE BLOOD COUNT 1800338 WBC 11.2 10e9/L 016 Unknown COMPLETE BLOOD COUNT 8798700 RBC 3.94 10e12/L 2015 Unknown COMPLETE BLOOD COUNT 5750812 HEMOGLOBIN 11.4 g/dL 03/06/20 16 Unknown COMPLETE BLOOD COUNT 3129350 HEMATOCRIT 33.7 % 03/06/20 16 Unknown COMPLETE BLOOD COUNT 3236553 MCV 85.5 fL 6 Unknown COMPLETE BLOOD COUNT 0280273 MCH 28.9 pg 6 Unknown COMPLETE BLOOD COUNT 5008304 MCHC 33.8 g/dL 6 Unknown COMPLETE BLOOD COUNT 9850393 PLATELET COUNT 204 10e9/L Unknown COMPLETE BLOOD COUNT 1757542 Mean Plt Volume 10.1 fL Unknown COMPLETE BLOOD COUNT 1079370 Neut Auto 85.9 % 6 Unknown COMPLETE BLOOD COUNT 5146215 Lymph Auto 6.8 % 03/06/20 16 Unknown COMPLETE BLOOD COUNT 9665167 Rowan Auto 7.0 % 6 Unknown COMPLETE BLOOD COUNT 7512136 RDW 13.7 % 6 Unknown COMPLETE BLOOD COUNT 6428918 Eos Auto 0.1 % 6 Unknown COMPLETE BLOOD COUNT 2619797 Baso Auto 0.2 % 6 Unknown COMPLETE BLOOD COUNT 7727092 Neutrophil Abs 9.62 10e9/L Unknown COMPLETE BLOOD COUNT 1232948 Lymphoctye Abs 0.76 10e9/L Unknown COMPLETE BLOOD COUNT 1340481 Monocyte Abs 0.78 10e9/L 02/22 Unknown COMPLETE BLOOD COUNT 7700784 Eosinophil Abs 0.01 10e9/L Unknown COMPLETE BLOOD COUNT 5918606 RDW-SD 41.9 fL 6 Unknown COMPLETE BLOOD COUNT 2764284 Basophil Abs 0.02 10e9/L 02/22 Unknown FREE T4 78957 T4 Free 0.89 ng/dL 03/06/2016 Unknown GFR CALC 0703711 GFR Non Afr Amr >60 mL/min 03/06/2016 Un known GFR CALC 3792270 GFR Afr Amr >60 mL/min 03/06/2016 Unknow n PSA EQUIMOLAR JONATAN 39776 PSA Total 0.78 ng/mL 6 Unknown FREE T4 43540 FREE T4 0.90 NG/DL 07/01/2015 Unknown LIPID GROUP 85056 HDL TEST 44 MG/DL 07/01/2015 Unknown LIPID GROUP 92124 TRIG 303 MG/DL 07/01/2015 Unknown LIPID GROUP 57975 TEST LDL 56 MG/DL 07/01/2015 Unknown LIPID GROUP 09231 CHOL 161 MG/DL 07/01/2015 Unknown LIPID GROUP 63258 RCHOL/HDL 3.66 RATIO 07/01/2015 Unknow n LIPID GROUP 49428 NON-HDL CH 117 MG/DL 07/01/2015 Unknow n THYROID STIMULATING HORMONE 45251 TSH 1.783 uIU/ML 07/01/2015 Unknown COMPLETE BLOOD COUNT 7847460 WBC 6.6 10e9/L 07/01/20 15 Unknown COMPLETE BLOOD COUNT 4695494 RBC 4.18 10e12/L 2014 Unknown COMPLETE BLOOD COUNT 6096228 HGB 12.2 g/dL 5 Unknown COMPLETE BLOOD COUNT 6674430 HCT DET 37.0 % 5 Unknown COMPLETE BLOOD COUNT 6218262 MCV 88.5 fL 5 Unknown COMPLETE BLOOD COUNT 2925027 MCH 29.2 pg 5 Unknown COMPLETE BLOOD COUNT 1891022 MCHC 33.0 g/dL 5 Unknown COMPLETE BLOOD COUNT 9246320 PLT 224 10e9/L 07/01/20 15 Unknown COMPLETE BLOOD COUNT 8315753 MPV 10.4 fL 5 Unknown COMPLETE BLOOD COUNT 8577343 SUSIE % 72.6 % 5 Unknown COMPLETE BLOOD COUNT 0295743 LY % 14.1 % 5 Unknown COMPLETE BLOOD COUNT 3070044 MON % 10.2 % 5 Unknown COMPLETE BLOOD COUNT 1828668 EOS % 2.6 % 5 Unknown COMPLETE BLOOD COUNT 1994231 BASO % 0.5 % 5 Unknown COMPLETE BLOOD COUNT 7368826 RDW 14.1 % 5 Unknown COMPLETE BLOOD COUNT 1083199 ABS SUSIE 4.79 10e9/L 015 Unknown COMPLETE BLOOD COUNT 7292394 ABS LYMPH 0.93 10e9/L 015 Unknown COMPLETE BLOOD COUNT 9105526 ABS MONO 0.67 10e9/L 015 Unknown COMPLETE BLOOD COUNT 9679270 ABS EOS 0.17 10e9/L 015 Unknown COMPLETE BLOOD COUNT 6783056 ABS BASO 0.03 10e9/L 015 Unknown COMPLETE BLOOD COUNT 9300787 RDW-SD 43.9 fL 5 Unknown PSA EQUIMOLAR JONATAN 47757 PSA EQ 0.73 NG/ML 5 Unknown COMPREHENSIVE METABOLIC 45737 AST 24 U/L 2014 Unknown COMPREHENSIVE METABOLIC 61002 ALT 26 IU/L 2014 Unknown COMPREHENSIVE METABOLIC 29154 BUN 26 MG/DL 2014 Unknown COMPREHENSIVE METABOLIC 98819 ALBUMIN 4.6 GM/DL 2014 Unknown COMPREHENSIVE METABOLIC 70750 CHLORIDE 102 MMOL/L 06/01 Unknown COMPREHENSIVE METABOLIC 31622 BILI TOT 0.5 MG/DL 2014 Unknown COMPREHENSIVE METABOLIC 45003 ALK PHOS 56 U/L 2014 Unknown COMPREHENSIVE METABOLIC 75116 SODIUM 136 MMOL/L 06/01 Unknown COMPREHENSIVE METABOLIC 15484 CREATININE 1.16 MG/DL 04/2015 Unknown COMPREHENSIVE METABOLIC 93197 CALCIUM 9.8 MG/DL 2014 Unknown COMPREHENSIVE METABOLIC 74977 POTASSIUM 4.6 MMOL/L 06/01 Unknown COMPREHENSIVE METABOLIC 05515 PROT TOT 7.4 GM/DL 2014 Unknown COMPREHENSIVE METABOLIC 14241 Glucose 223 MG/DL 2014 Unknown COMPREHENSIVE METABOLIC 74249 BICARB 27 MMOL/L 2014 Unknown COMPREHENSIVE METABOLIC 83532 ANION GAP 7 MEQ/L 2014 Unknown GFR CALC 4692368 GFR AA >60 ML/MIN 06/01/2015 Unknown GFR CALC 9519560 GFR NON-AA >60 ML/MIN 06/01/2015 Unknown GLYCOSYLATED HEMOGLOBIN TEST 59293 A1C HPLC 51069-4 8.9 % 0 06/01/2015 Unknown GFR CALC 9628676 GFR AA >60 ML/MIN 02/25/2015 Unknown GFR CALC 9871681 GFR NON-AA >60 ML/MIN 02/25/2015 Unknown COMPREHENSIVE METABOLIC 59432 AST 24 U/L 2014 Unknown COMPREHENSIVE METABOLIC 09245 ALT 25 IU/L 2014 Unknown COMPREHENSIVE METABOLIC 08896 BUN 14 MG/DL 2014 Unknown COMPREHENSIVE METABOLIC 69186 ALBUMIN 4.5 GM/DL 2014 Unknown COMPREHENSIVE METABOLIC 51669 CHLORIDE 99 MMOL/L 2014 Unknown COMPREHENSIVE METABOLIC 97120 BILI TOT 0.5 MG/DL 2014 Unknown COMPREHENSIVE METABOLIC 91204 ALK PHOS 48 U/L 2014 Unknown COMPREHENSIVE METABOLIC 76204 SODIUM 136 MMOL/L 02/25 Unknown COMPREHENSIVE METABOLIC 35990 CREATININE 0.97 MG/DL 12/2014 Unknown COMPREHENSIVE METABOLIC 68117 CALCIUM 9.9 MG/DL 2014 Unknown COMPREHENSIVE METABOLIC 31752 POTASSIUM 4.4 MMOL/L 02/25 Unknown COMPREHENSIVE METABOLIC 36437 PROT TOT 7.1 GM/DL 2014 Unknown COMPREHENSIVE METABOLIC 60568 Glucose 171 MG/DL 2014 Unknown COMPREHENSIVE METABOLIC 18668 BICARB 25 MMOL/L 2014 Unknown COMPREHENSIVE METABOLIC 21669 ANION GAP 12 MEQ/L 2014 Unknown PROTEIN/CREAT URINE WITH RATIO 91401|[id number] PROT R U 19 MG/D L 08/27/2014 Unknown PROTEIN/CREAT URINE WITH RATIO 84684|51921 CREAT R U 111 MG/ DL 08/27/2014 Unknown PROTEIN/CREAT URINE WITH RATIO 84692|82273 XRATIO P/C 171 MG /G 08/27/2014 Unknown MICROALBUMIN URINE RANDOM 63440 MICRL MG/L 34.7 MG/L 12/2013 Unknown MICROALBUMIN URINE RANDOM 33109 XM.ALB/CRE 32.7 MG/GCR 1 10/28/2013 Unknown MICROALBUMIN URINE RANDOM 04784 CREAT MG/D 106 MG/DL 12/2013 Unknown MICROALBUMIN URINE RANDOM 69208 CRE/100 1.06 G/L 12/2013 Unknown COMPLETE BLOOD COUNT [id number] WBC 7.1 10e9/L 08/05/20 14 Unknown COMPLETE BLOOD COUNT [id number] RBC 4.35 10e12/L 2013 Unknown COMPLETE BLOOD COUNT 1867700 HGB 12.9 g/dL 4 Unknown COMPLETE BLOOD COUNT [id number] HCT DET 39.4 % 4 Unknown COMPLETE BLOOD COUNT [id number] MCV 90.6 fL 4 Unknown COMPLETE BLOOD COUNT [id number] MCH 29.7 pg 4 Unknown COMPLETE BLOOD COUNT [id number] MCHC 32.7 g/dL 4 Unknown COMPLETE BLOOD COUNT 1259304 PLT 240 10e9/L 08/05/20 14 Unknown COMPLETE BLOOD COUNT [id number] MPV 10.3 fL 4 Unknown COMPLETE BLOOD COUNT [id number] SUSIE % 70.0 % 4 Unknown COMPLETE BLOOD COUNT [id number] LY % 16.4 % 4 Unknown COMPLETE BLOOD COUNT [id number] MON % 9.2 % 4 Unknown COMPLETE BLOOD COUNT [id number] EOS % 3.8 % 4 Unknown COMPLETE BLOOD COUNT [id number] BASO % 0.6 % 4 Unknown COMPLETE BLOOD COUNT [id number] RDW 13.4 % 4 Unknown COMPLETE BLOOD COUNT [id number] ABS SUSIE 4.97 10e9/L 014 Unknown COMPLETE BLOOD COUNT [id number] ABS LYMPH 1.16 10e9/L 014 Unknown COMPLETE BLOOD COUNT [id number] ABS MONO 0.65 10e9/L 014 Unknown COMPLETE BLOOD COUNT [id number] ABS EOS 0.27 10e9/L 014 Unknown COMPLETE BLOOD COUNT [id number] ABS BASO 0.04 10e9/L 014 Unknown COMPLETE BLOOD COUNT [id number] RDW-SD 43.3 fL 4 Unknown FREE T4 43354 FREE T4 1.02 NG/DL 08/05/2014 Unknown GFR CALC 6976787 GFR AA >60 ML/MIN 08/05/2014 Unknown GFR CALC 8909131 GFR NON-AA >60 ML/MIN 08/05/2014 Unknown GLYCOSYLATED HEMOGLOBIN TEST 80118 A1C HPLC 00676-1 7.7 % 1 10/05/2013 Unknown COMPREHENSIVE METABOLIC 10918 AST 19 U/L 2013 Unknown COMPREHENSIVE METABOLIC 33574 ALT 21 IU/L 2013 Unknown COMPREHENSIVE METABOLIC 12085 BUN 25 MG/DL 2013 Unknown COMPREHENSIVE METABOLIC 22009 ALBUMIN 4.6 GM/DL 2013 Unknown COMPREHENSIVE METABOLIC 87607 CHLORIDE 103 MMOL/L 08/05 Unknown COMPREHENSIVE METABOLIC 99602 BILI TOT 0.4 MG/DL 2013 Unknown COMPREHENSIVE METABOLIC 62952 ALK PHOS 45 U/L 2013 Unknown COMPREHENSIVE METABOLIC 97536 SODIUM 138 MMOL/L 08/05 Unknown COMPREHENSIVE METABOLIC 29195 CREATININE 1.01 MG/DL 07/25 Unknown COMPREHENSIVE METABOLIC 33598 CALCIUM 9.8 MG/DL 2013 Unknown COMPREHENSIVE METABOLIC 32707 POTASSIUM 4.7 MMOL/L 08/05 Unknown COMPREHENSIVE METABOLIC 65634 PROT TOT 7.0 GM/DL 2013 Unknown COMPREHENSIVE METABOLIC 64715 Glucose 145 MG/DL 2013 Unknown COMPREHENSIVE METABOLIC 44136 BICARB 27 MMOL/L 2013 Unknown COMPREHENSIVE METABOLIC 27301 ANION GAP 8 MEQ/L 2013 Unknown THYROID STIMULATING HORMONE 62426 TSH 1.922 uIU/ML 08/05/2014 Unknown LIPID GROUP 80406 HDL TEST 47 MG/DL 08/05/2014 Unknown LIPID GROUP 41430 TRIG 224 MG/DL 08/05/2014 Unknown LIPID GROUP 60246 TEST LDL 125 MG/DL 08/05/2014 Unknown LIPID GROUP 03343 CHOL 217 MG/DL 08/05/2014 Unknown LIPID GROUP 40858 RCHOL/HDL 4.62 RATIO 08/05/2014 Unknow n LIPID GROUP 04028 NON-HDL CH 170 MG/DL 08/05/2014 Unknow n MYCOPLASMA ANTIBODY, IFA [id number] MYCO G IFA 1:256 03/24 Unknown MYCOPLASMA ANTIBODY, IFA 40223H3 MYCO M IFA <1:10 03/24 Unknown MYCOPLASMA ANTIBODY, IFA [id number] MYCO INTER SEE BELO 03/24 Unknown COMPLETE BLOOD COUNT [id number] WBC 8.3 10e9/L 04/09/20 13 Unknown COMPLETE BLOOD COUNT [id number] RBC 4.61 10e12/L 2012 Unknown COMPLETE BLOOD COUNT [id number] HGB 13.9 g/dL 3 Unknown COMPLETE BLOOD COUNT [id number] HCT DET 41.2 % 3 Unknown COMPLETE BLOOD COUNT [id number] MCV 89.4 fL 3 Unknown COMPLETE BLOOD COUNT [id number] MCH 30.2 pg 3 Unknown COMPLETE BLOOD COUNT [id number] MCHC 33.7 g/dL 3 Unknown COMPLETE BLOOD COUNT [id number] PLT 249 10e9/L 04/09/20 13 Unknown COMPLETE BLOOD COUNT [id number] MPV 9.8 fL 3 Unknown COMPLETE BLOOD COUNT [id number] SUSIE % 65.9 % 3 Unknown COMPLETE BLOOD COUNT 8587441 LY % 19.8 % 3 Unknown COMPLETE BLOOD COUNT [id number] MON % 10.8 % 3 Unknown COMPLETE BLOOD COUNT [id number] EOS % 3.0 % 3 Unknown COMPLETE BLOOD COUNT [id number] BASO % 0.5 % 3 Unknown COMPLETE BLOOD COUNT [id number] RDW 14.0 % 3 Unknown COMPLETE BLOOD COUNT [id number] ABS SUSIE 5.47 10e9/L 013 Unknown COMPLETE BLOOD COUNT [id number] ABS LYMPH 1.64 10e9/L 013 Unknown COMPLETE BLOOD COUNT [id number] ABS MONO 0.90 10e9/L 013 Unknown COMPLETE BLOOD COUNT [id number] ABS EOS 0.25 10e9/L 013 Unknown COMPLETE BLOOD COUNT [id number] ABS BASO 0.04 10e9/L 013 Unknown COMPLETE BLOOD COUNT [id number] RDW-SD 45.0 fL 3 Unknown URIC ACID 35830 URIC ACID 5.3 MG/DL 02/12/2013 Unknown FREE T4 74247 FREE T4 1.09 NG/DL 02/11/2013 Unknown COMPLETE BLOOD COUNT [id number] WBC 6.3 10e9/L 02/12/20 13 Unknown COMPLETE BLOOD COUNT [id number] RBC 4.29 10e12/L 2012 Unknown COMPLETE BLOOD COUNT [id number] HGB 13.1 g/dL 3 Unknown COMPLETE BLOOD COUNT [id number] HCT DET 39.7 % 3 Unknown COMPLETE BLOOD COUNT 7523782 MCV 92.5 fL 3 Unknown COMPLETE BLOOD COUNT 2735393 MCH 30.5 pg 3 Unknown COMPLETE BLOOD COUNT 1936147 MCHC 33.0 g/dL 3 Unknown COMPLETE BLOOD COUNT [id number] PLT 247 10e9/L 02/12/20 13 Unknown COMPLETE BLOOD COUNT [id number] MPV 10.0 fL 3 Unknown COMPLETE BLOOD COUNT [id number] SUSIE % 73.4 % 3 Unknown COMPLETE BLOOD COUNT [id number] LY % 13.5 % 3 Unknown COMPLETE BLOOD COUNT [id number] MON % 9.4 % 3 Unknown COMPLETE BLOOD COUNT [id number] EOS % 2.9 % 3 Unknown COMPLETE BLOOD COUNT [id number] BASO % 0.8 % 3 Unknown COMPLETE BLOOD COUNT [id number] RDW 13.8 % 3 Unknown COMPLETE BLOOD COUNT [id number] ABS SUSIE 4.62 10e9/L 013 Unknown COMPLETE BLOOD COUNT [id number] ABS LYMPH 0.85 10e9/L 013 Unknown COMPLETE BLOOD COUNT [id number] ABS MONO 0.59 10e9/L 013 Unknown COMPLETE BLOOD COUNT [id number] ABS EOS 0.18 10e9/L 013 Unknown COMPLETE BLOOD COUNT [id number] ABS BASO 0.05 10e9/L 013 Unknown COMPLETE BLOOD COUNT [id number] RDW-SD 45.7 fL 3 Unknown HEMOGLOBIN A1C (GLYCOSYLATED) 2797059 A1C HPLC 20928-0 7.5 % 02/11/2013 Unknown THYROID STIMULATING HORMONE 56670 TSH 1.466 uIU/ML 02/11/2013 Unknown VITAMIN B 12 FOLIC ACID 85877|38116 VIT B 12 625 PG/ML 01/23 Unknown VITAMIN B 12 FOLIC ACID 04786|10537 FOLIC ACID 15.6 NG/ML Unknown COMPREHENSIVE METABOLIC 24233 AST 18 U/L 2012 Unknown COMPREHENSIVE METABOLIC 35342 ALT 21 IU/L 2012 Unknown COMPREHENSIVE METABOLIC 12555 BUN 25 MG/DL 2012 Unknown COMPREHENSIVE METABOLIC 22950 ALBUMIN 4.6 GM/DL 2012 Unknown COMPREHENSIVE METABOLIC 48889 CHLORIDE 103 MMOL/L 02/11 Unknown COMPREHENSIVE METABOLIC 91665 BILI TOT 0.3 MG/DL 2012 Unknown COMPREHENSIVE METABOLIC 41427 ALK PHOS 53 U/L 2012 Unknown COMPREHENSIVE METABOLIC 32226 SODIUM 136 MMOL/L 02/11 Unknown COMPREHENSIVE METABOLIC 40089 CREATININE 1.16 MG/DL 01/23 Unknown COMPREHENSIVE METABOLIC 89804 CALCIUM 10.0 MG/DL 02/11 Unknown COMPREHENSIVE METABOLIC 88825 POTASSIUM 4.9 MMOL/L 02/11 Unknown COMPREHENSIVE METABOLIC 55054 PROT TOT 7.0 GM/DL 2012 Unknown COMPREHENSIVE METABOLIC 53152 Glucose 192 MG/DL 2012 Unknown COMPREHENSIVE METABOLIC 46090 BICARB 26 MMOL/L 2012 Unknown COMPREHENSIVE METABOLIC 29417 ANION GAP 7 MEQ/L 2012 Unknown GFR CALC 6494612 GFR AA >60 ML/MIN 02/11/2013 Unknown GFR CALC 2056120 GFR NON-AA >60 ML/MIN 02/11/2013 Unknown C-REACTIVE PROTEIN (CRP) QUANT 19262 CRP 2.7 MG/DL 02/11/2013 Unknown GFR CALC 5530819 GFR AA >60 ML/MIN 09/19/2012 Unknown GFR CALC 0024475 GFR NON-AA >60 ML/MIN 09/19/2012 Unknown HEMOGLOBIN A1C (GLYCOSYLATED) 5245402 A1C HPLC 31777-7 7.2 % 09/19/2012 Unknown COMPREHENSIVE METABOLIC 82582 AST 13 U/L 2011 Unknown COMPREHENSIVE METABOLIC 27780 ALT 17 IU/L 2011 Unknown COMPREHENSIVE METABOLIC 83769 BUN 25 MG/DL 2011 Unknown COMPREHENSIVE METABOLIC 96497 ALBUMIN 4.5 GM/DL 2011 Unknown COMPREHENSIVE METABOLIC 02677 CHLORIDE 104 MMOL/L 09/19 Unknown COMPREHENSIVE METABOLIC 67123 BILI TOT 0.3 MG/DL 2011 Unknown COMPREHENSIVE METABOLIC 22567 ALK PHOS 43 U/L 2011 Unknown COMPREHENSIVE METABOLIC 87487 SODIUM 139 MMOL/L 09/19 Unknown COMPREHENSIVE METABOLIC 60519 CREATININE 1.10 MG/DL 08/25 Unknown COMPREHENSIVE METABOLIC 51396 CALCIUM 9.8 MG/DL 2011 Unknown COMPREHENSIVE METABOLIC 09818 POTASSIUM 4.8 MMOL/L 09/19 Unknown COMPREHENSIVE METABOLIC 46947 PROT TOT 6.5 GM/DL 2011 Unknown COMPREHENSIVE METABOLIC 01954 Glucose 148 MG/DL 2011 Unknown COMPREHENSIVE METABOLIC 38124 BICARB 25 MMOL/L 2011 Unknown COMPREHENSIVE METABOLIC 40303 ANION GAP 10 MEQ/L 2011 Unknown LIPID GROUP 59191 HDL TEST 44 MG/DL 09/19/2012 Unknown LIPID GROUP 98493 TRIG 318 MG/DL 09/19/2012 Unknown LIPID GROUP 37473 TEST LDL 100 MG/DL 09/19/2012 Unknown LIPID GROUP 74435 CHOL 208 MG/DL 09/19/2012 Unknown LIPID GROUP 56566 RCHOL/HDL 4.73 RATIO 09/19/2012 Unknow n FREE T4 14459 FREE T4 0.87 NG/DL 05/06/2012 Unknown GLYCOSYLATED HEMOGLOBIN TEST 86197 A1C HPLC 64763-1 6.4 % 0 05/06/2012 Unknown LIPID GROUP 02890 HDL TEST 44 MG/DL 05/06/2012 Unknown LIPID GROUP 87328 TRIG 177 MG/DL 05/06/2012 Unknown LIPID GROUP 40917 TEST LDL 113 MG/DL 05/06/2012 Unknown LIPID GROUP 55136 CHOL 192 MG/DL 05/06/2012 Unknown LIPID GROUP 41445 RCHOL/HDL 4.36 RATIO 05/06/2012 Unknow n THYROID STIMULATING HORMONE 89300 TSH 1.151 uIU/ML 05/06/2012 Unknown COMPLETE BLOOD COUNT 51940 WBC 7.8 10e9/L 05/06/20 12 Unknown COMPLETE BLOOD COUNT 71437 RBC 4.31 10e12/L 2011 Unknown COMPLETE BLOOD COUNT 39579 HGB 12.8 g/dL 2 Unknown COMPLETE BLOOD COUNT 04704 HCT DET 39.1 % 2 Unknown COMPLETE BLOOD COUNT 95927 MCV 90.7 fL 2 Unknown COMPLETE BLOOD COUNT 90213 MCH 29.7 pg 2 Unknown COMPLETE BLOOD COUNT 80144 MCHC 32.7 g/dL 2 Unknown COMPLETE BLOOD COUNT 76089 PLT 207 10e9/L 05/06/20 12 Unknown COMPLETE BLOOD COUNT 30475 MPV 10.2 fL 2 Unknown COMPLETE BLOOD COUNT 84776 SUSIE % 74.2 % 2 Unknown COMPLETE BLOOD COUNT 45291 LY % 12.8 % 2 Unknown COMPLETE BLOOD COUNT 75001 MON % 11.0 % 2 Unknown COMPLETE BLOOD COUNT 42720 EOS % 1.7 % 2 Unknown COMPLETE BLOOD COUNT 29988 BASO % 0.3 % 2 Unknown COMPLETE BLOOD COUNT 66815 RDW 13.7 % 2 Unknown COMPLETE BLOOD COUNT 89043 ABS SUSIE 5.79 10e9/L 012 Unknown COMPLETE BLOOD COUNT 91576 ABS LYMPH 1.00 10e9/L 012 Unknown COMPLETE BLOOD COUNT 20821 ABS MONO 0.86 10e9/L 012 Unknown COMPLETE BLOOD COUNT 39582 ABS EOS 0.13 10e9/L 012 Unknown COMPLETE BLOOD COUNT 41922 ABS BASO 0.02 10e9/L 012 Unknown COMPLETE BLOOD COUNT 07962 RDW-SD 44.4 fL 2 Unknown COMPREHENSIVE METABOLIC 47107 AST 13 U/L 2011 Unknown COMPREHENSIVE METABOLIC 37307 ALT 14 IU/L 2011 Unknown COMPREHENSIVE METABOLIC 78278 BUN 17 MG/DL 2011 Unknown COMPREHENSIVE METABOLIC 93555 ALBUMIN 4.5 GM/DL 2011 Unknown COMPREHENSIVE METABOLIC 61493 CHLORIDE 101 MMOL/L 05/06 Unknown COMPREHENSIVE METABOLIC 63590 BILI TOT 0.5 MG/DL 2011 Unknown COMPREHENSIVE METABOLIC 31158 ALK PHOS 42 U/L 2011 Unknown COMPREHENSIVE METABOLIC 69396 SODIUM 141 MMOL/L 05/06 Unknown COMPREHENSIVE METABOLIC 53027 CREATININE 1.02 MG/DL 04/24 Unknown COMPREHENSIVE METABOLIC 86397 CALCIUM 9.7 MG/DL 2011 Unknown COMPREHENSIVE METABOLIC 71053 POTASSIUM 4.6 MMOL/L 05/06 Unknown COMPREHENSIVE METABOLIC 62878 PROT TOT 6.5 GM/DL 2011 Unknown COMPREHENSIVE METABOLIC 18118 Glucose 139 MG/DL 2011 Unknown COMPREHENSIVE METABOLIC 93157 BICARB 29 MMOL/L 2011 Unknown COMPREHENSIVE METABOLIC 56362 ANION GAP 11 MEQ/L 2011 Unknown GFR CALC 1253801 GFR AA >60 ML/MIN 05/06/2012 Unknown GFR CALC 1418384 GFR NON-AA 54.0L ML/MIN 05/06/2012 Unkno wn GLYCOSYLATED HEMOGLOBIN TEST 03766 A1C HPLC 77462-3 6.6 % 1 09/30/2010 Unknown FREE T4 47512 FREE T4 1.00 NG/DL 07/26/2011 Unknown LIPID GROUP 93308 HDL TEST 40 MG/DL 07/26/2011 Unknown LIPID GROUP 15367 TRIG 136 MG/DL 07/26/2011 Unknown LIPID GROUP 34439 TEST LDL 126 MG/DL 07/26/2011 Unknown LIPID GROUP 80103 CHOL 193 MG/DL 07/26/2011 Unknown LIPID GROUP 04910 RCHOL/HDL 4.83 RATIO 07/26/2011 Unknow n COMPREHENSIVE METABOLIC 63531 AST 15 U/L 2010 Unknown COMPREHENSIVE METABOLIC 37307 ALT 13 IU/L 2010 Unknown COMPREHENSIVE METABOLIC 95239 BUN 17 MG/DL 2010 Unknown COMPREHENSIVE METABOLIC 80711 ALBUMIN 4.4 GM/DL 2010 Unknown COMPREHENSIVE METABOLIC 44193 CHLORIDE 102 MMOL/L 07/26 Unknown COMPREHENSIVE METABOLIC 48319 BILI TOT 0.5 MG/DL 2010 Unknown COMPREHENSIVE METABOLIC 97207 ALK PHOS 54 U/L 2010 Unknown COMPREHENSIVE METABOLIC 19098 SODIUM 138 MMOL/L 07/26 Unknown COMPREHENSIVE METABOLIC 66223 CREATININE 0.95 MG/DL 10/2010 Unknown COMPREHENSIVE METABOLIC 15400 CALCIUM 9.3 MG/DL 2010 Unknown COMPREHENSIVE METABOLIC 03629 POTASSIUM 4.3 MMOL/L 07/26 Unknown COMPREHENSIVE METABOLIC 74808 PROT TOT 6.7 GM/DL 2010 Unknown COMPREHENSIVE METABOLIC 78611 Glucose 116 MG/DL 2010 Unknown COMPREHENSIVE METABOLIC 23078 BICARB 28 MMOL/L 2010 Unknown COMPREHENSIVE METABOLIC 45058 ANION GAP 8 MEQ/L 2010 Unknown PSA EQUIMOLAR JONATAN 07783 PSA EQ 1.01 NG/ML 1 Unknown COMPLETE BLOOD COUNT 62443 WBC 6.4 10e9/L 07/26/20 11 Unknown COMPLETE BLOOD COUNT 34620 RBC 4.43 10e12/L 2010 Unknown COMPLETE BLOOD COUNT 05339 HGB 13.2 g/dL 1 Unknown COMPLETE BLOOD COUNT 01605 HCT DET 39.3 % 1 Unknown COMPLETE BLOOD COUNT 62574 MCV 88.7 fL 1 Unknown COMPLETE BLOOD COUNT 02524 MCH 29.8 pg 1 Unknown COMPLETE BLOOD COUNT 52540 MCHC 33.6 g/dL 1 Unknown COMPLETE BLOOD COUNT 47118 PLT 226 10e9/L 07/26/20 11 Unknown COMPLETE BLOOD COUNT 45196 MPV 9.9 fL 1 Unknown COMPLETE BLOOD COUNT 66259 SUSIE % 65.4 % 1 Unknown COMPLETE BLOOD COUNT 45976 LY % 19.7 % 1 Unknown COMPLETE BLOOD COUNT 41312 MON % 10.8 % 1 Unknown COMPLETE BLOOD COUNT 30359 EOS % 3.6 % 1 Unknown COMPLETE BLOOD COUNT 95026 BASO % 0.5 % 1 Unknown COMPLETE BLOOD COUNT 83997 RDW 13.2 % 1 Unknown COMPLETE BLOOD COUNT 44321 ABS SUSIE 4.19 10e9/L 011 Unknown COMPLETE BLOOD COUNT 47251 ABS LYMPH 1.26 10e9/L 011 Unknown COMPLETE BLOOD COUNT 50969 ABS MONO 0.69 10e9/L 011 Unknown COMPLETE BLOOD COUNT 72904 ABS EOS 0.23 10e9/L 011 Unknown COMPLETE BLOOD COUNT 40211 ABS BASO 0.03 10e9/L 011 Unknown COMPLETE BLOOD COUNT 26636 RDW-SD 41.7 fL 1 Unknown THYROID STIMULATING HORMONE 91484 TSH 1.345 uIU/ML 07/26/2011 Unknown GFR CALC 5522515 GFR AA >60 ML/MIN 07/26/2011 Unknown GFR CALC 0646692 GFR NON-AA >60 ML/MIN 07/26/2011 Unknown BRAIN NATRIURETIC PEPTIDE(BNP) 92274 BRAIN PEP 23 pg/mL 01/19/2011 Unknown CANCEL 3074750 CANCEL FOOTNOTE 01/18/2011 Unknown TESTOSTERONE TOTAL 51724 TESTOS TO 138 NG/DL 12/19/2010 Unknown COMPLETE BLOOD COUNT 00768 WBC 8.4 10e9/L 12/08/19 11 Unknown COMPLETE BLOOD COUNT 81125 RBC 4.40 10e12/L 2010 Unknown COMPLETE BLOOD COUNT 23869 HGB 13.3 g/dL 1 Unknown COMPLETE BLOOD COUNT 54054 HCT DET 39.8 % 1 Unknown COMPLETE BLOOD COUNT 66452 MCV 90.5 fL 1 Unknown COMPLETE BLOOD COUNT 04472 MCH 30.2 pg 1 Unknown COMPLETE BLOOD COUNT 43409 MCHC 33.4 g/dL 1 Unknown COMPLETE BLOOD COUNT 72700 PLT 201 10e9/L 12/08/19 11 Unknown COMPLETE BLOOD COUNT 04734 MPV 10.6 fL 1 Unknown COMPLETE BLOOD COUNT 18325 SUSIE % 72.5 % 1 Unknown COMPLETE BLOOD COUNT 85598 LY % 14.8 % 1 Unknown COMPLETE BLOOD COUNT 34790 MON % 10.6 % 1 Unknown COMPLETE BLOOD COUNT 73049 EOS % 1.7 % 1 Unknown COMPLETE BLOOD COUNT 03678 BASO % 0.4 % 1 Unknown COMPLETE BLOOD COUNT 07567 RDW 13.7 % 1 Unknown COMPLETE BLOOD COUNT 95742 ABS SUSIE 6.09 10e9/L 011 Unknown COMPLETE BLOOD COUNT 57519 ABS LYMPH 1.24 10e9/L 011 Unknown COMPLETE BLOOD COUNT 81743 ABS MONO 0.89 10e9/L 011 Unknown COMPLETE BLOOD COUNT 74797 ABS EOS 0.14 10e9/L 011 Unknown COMPLETE BLOOD COUNT 40704 ABS BASO 0.03 10e9/L 011 Unknown COMPLETE BLOOD COUNT 87721 RDW-SD 44.0 fL 1 Unknown LIPID GROUP 75467 HDL TEST 40 MG/DL 12/07/2010 Unknown LIPID GROUP 90539 TRIG 383 MG/DL 12/07/2010 Unknown LIPID GROUP 58831 TEST LDL 82 MG/DL 12/07/2010 Unknown LIPID GROUP 28039 CHOL 199 MG/DL 12/07/2010 Unknown LIPID GROUP 73730 RCHOL/HDL 4.98 RATIO 12/07/2010 Unknow n GFR CALC 3447127 GFR AA >60 ML/MIN 12/07/2010 Unknown GFR CALC 9216190 GFR NON-AA >60 ML/MIN 12/07/2010 Unknown COMPREHENSIVE METABOLIC 10360 AST 29 U/L 2010 Unknown COMPREHENSIVE METABOLIC 97554 ALT 39 IU/L 2010 Unknown COMPREHENSIVE METABOLIC 76489 BUN 17 MG/DL 2010 Unknown COMPREHENSIVE METABOLIC 84551 ALBUMIN 4.9 GM/DL 2010 Unknown COMPREHENSIVE METABOLIC 42556 CHLORIDE 100 MMOL/L 12/07 Unknown COMPREHENSIVE METABOLIC 05693 BILI TOT 0.3 MG/DL 2010 Unknown COMPREHENSIVE METABOLIC 75660 ALK PHOS 53 U/L 2010 Unknown COMPREHENSIVE METABOLIC 40014 SODIUM 137 MMOL/L 12/07 Unknown COMPREHENSIVE METABOLIC 00426 CREATININE 0.98 MG/DL 11/22 Unknown COMPREHENSIVE METABOLIC 79450 CALCIUM 9.5 MG/DL 2010 Unknown COMPREHENSIVE METABOLIC 60598 POTASSIUM 4.3 MMOL/L 12/07 Unknown COMPREHENSIVE METABOLIC 72601 PROT TOT 6.6 GM/DL 2010 Unknown COMPREHENSIVE METABOLIC 43724 Glucose 176 MG/DL 2010 Unknown COMPREHENSIVE METABOLIC 36029 BICARB 28 MMOL/L 2010 Unknown COMPREHENSIVE METABOLIC 77914 ANION GAP 9 MEQ/L 2010 Unknown PSA EQUIMOLAR JONATAN 57162 PSA EQ 0.65 NG/ML 1 Unknown HEMOGLOBIN A1C (GLYCOSYLATED) 84552 A1C HPLC 94070-8 6.9 % 12/07/2010 Unknown Procedures Procedure Codes Date FLU VACC PRSV FREE INC ANTIG 65 AND OLDER CPT-4: 54249 08/07/2019 FLU VACC PRSV FREE INC ANTIG 65 AND OLDER CPT-4: 68121 08/07/2019 ADMIN INFLUENZA VIRUS VAC CPT-4: G0008 08/07/2019 THER/PROPH/DIAG INJ SC/IM CPT-4: 67514 07/14/2019 METHYLPREDNISOLONE INJECTION CPT-4: J2930 07/14/2019 ROUTINE VENIPUNCTURE CPT-4: 01322 06/17/2019 ASSAY THYROID STIM HORMONE CPT-4: 70105 06/17/2019 COMPREHEN METABOLIC PANEL CPT-4: 70108 06/17/2019 COMPLETE CBC W/AUTO DIFF WBC CPT-4: 32408 06/17/2019 ASSAY OF IRON CPT-4: 92399 06/17/2019 VITAMIN B-12 CPT-4: 00063 06/17/2019 RBC SED RATE AUTOMATED CPT-4: 01552 06/17/2019 THER/PROPH/DIAG INJ SC/IM CPT-4: 63765 06/10/2019 THER/PROPH/DIAG INJ SC/IM CPT-4: 56747 06/02/2019 THER/PROPH/DIAG INJ SC/IM CPT-4: 40518 05/27/2019 THER/PROPH/DIAG INJ SC/IM CPT-4: 16852 05/12/2019 ROUTINE VENIPUNCTURE CPT-4: 34971 05/08/2019 COMPREHEN METABOLIC PANEL CPT-4: 57213 05/08/2019 COMPLETE CBC W/AUTO DIFF WBC CPT-4: 25816 05/08/2019 A1C HPLC CPT-4: 23734 05/08/2019 VITAMIN D TOTAL (25 HYDROXY) CPT-4: 87309 05/08/2019 ASSAY OF IRON CPT-4: 23150 05/08/2019 ASSAY OF FERRITIN CPT-4: 02618 05/08/2019 VITAMIN B-12 CPT-4: 79158 05/08/2019 THER/PROPH/DIAG INJ SC/IM CPT-4: 43663 03/21/2019 METHYLPREDNISOLONE INJECTION CPT-4: J2930 03/21/2019 THER/PROPH/DIAG INJ SC/IM CPT-4: 86134 03/13/2019 METHYLPREDNISOLONE INJECTION CPT-4: J2930 03/13/2019 THER/PROPH/DIAG INJ SC/IM CPT-4: 98683 12/25/2018 METHYLPREDNISOLONE INJECTION CPT-4: J2930 12/25/2018 ROUTINE VENIPUNCTURE CPT-4: 37602 12/09/2018 ASSAY OF FREE THYROXINE CPT-4: 69344 12/09/2018 ASSAY THYROID STIM HORMONE CPT-4: 04118 12/09/2018 COMPREHEN METABOLIC PANEL CPT-4: 32178 12/09/2018 COMPLETE CBC W/AUTO DIFF WBC CPT-4: 24210 12/09/2018 LIPID PANEL CPT-4: 65585 12/09/2018 A1C HPLC CPT-4: 49737 12/09/2018 PRESCRIP TRANSMIT VIA ERX SY CPT-4: G8553 08/21/2018 PRESCRIP TRANSMIT VIA ERX SY CPT-4: G8553 08/07/2018 THER/PROPH/DIAG INJ SC/IM CPT-4: 82217 05/23/2018 METHYLPREDNISOLONE INJECTION CPT-4: J2930 05/23/2018 PRESCRIP TRANSMIT VIA ERX SY CPT-4: G8553 05/02/2018 THER/PROPH/DIAG INJ SC/IM CPT-4: 94846 04/29/2018 METHYLPREDNISOLONE INJECTION CPT-4: J2930 04/29/2018 DEXAMETHASONE SODIUM PHOS CPT-4: J1100 04/22/2018 THER/PROPH/DIAG INJ SC/IM CPT-4: 84463 04/22/2018 TRIAMCINOLONE ACET INJ NOS CPT-4: J3301 04/22/2018 PRESCRIP TRANSMIT VIA ERX SY CPT-4: G8553 04/22/2018 PRESCRIP TRANSMIT VIA ERX SY CPT-4: G8553 01/23/2018 URINALYSIS NONAUTO W/O SCOPE CPT-4: 71284 01/02/2018 URINE CULTURE/ COLONY COUNT CPT-4: 03988 01/02/2018 PRESCRIP TRANSMIT VIA ERX SY CPT-4: G8553 01/02/2018 PRESCRIP TRANSMIT VIA ERX SY CPT-4: G8553 12/28/2017 PRESCRIP TRANSMIT VIA ERX SY CPT-4: G8553 12/21/2017 CEFTRIAXONE SODIUM INJECTION CPT-4: J0696 12/17/2017 THER/PROPH/DIAG INJ SC/IM CPT-4: 82987 12/17/2017 THER/PROPH/DIAG INJ SC/IM CPT-4: 90268 12/17/2017 TRIAMCINOLONE ACET INJ NOS CPT-4: J3301 12/17/2017 PRESCRIP TRANSMIT VIA ERX SY CPT-4: G8553 12/17/2017 DRAIN/INJECT JOINT/BURSA CPT-4: 86142 12/11/2017 TRIAMCINOLONE ACET INJ NOS CPT-4: J3301 12/11/2017 DEXAMETHASONE SODIUM PHOS CPT-4: J1100 12/11/2017 DESTRUCT PREMALG LESION (Cryosurgery) CPT-4: 52285 PRESCRIP TRANSMIT VIA ERX SY CPT-4: G8553 10/17/2017 DEXAMETHASONE SODIUM PHOS CPT-4: J1100 08/02/2017 THER/PROPH/DIAG INJ SC/IM CPT-4: 81290 08/02/2017 TRIAMCINOLONE ACET INJ NOS CPT-4: J3301 08/02/2017 PRESCRIP TRANSMIT VIA ERX SY CPT-4: G8553 08/02/2017 PNEUMOCOCCAL VACC 23 OLIVIA IM CPT-4: 74742 07/24/2017 ADMIN PNEUMOCOCCAL VACCINE CPT-4: G0009 07/24/2017 ALBUTEROL NON-COMP UNIT CPT-4: J7613 07/02/2017 AIRWAY INHALATION TREATMENT CPT-4: 57245 07/02/2017 THER/PROPH/DIAG INJ SC/IM CPT-4: 87627 07/02/2017 METHYLPREDNISOLONE INJECTION CPT-4: J2930 07/02/2017 PRESCRIP TRANSMIT VIA ERX SY CPT-4: G8553 05/29/2017 ROUTINE VENIPUNCTURE CPT-4: 81116 04/17/2017 ASSAY OF IRON CPT-4: 23118 04/17/2017 VITAMIN B-12 CPT-4: 41068 04/17/2017 COMPREHEN METABOLIC PANEL CPT-4: 39589 04/17/2017 COMPLETE CBC W/AUTO DIFF WBC CPT-4: 51130 04/17/2017 ASSAY OF FERRITIN CPT-4: 87393 04/17/2017 ASSAY THYROID STIM HORMONE CPT-4: 72908 04/17/2017 A1C HPLC CPT-4: 86148 04/17/2017 DRAIN/INJECT JOINT/BURSA CPT-4: 90604 02/01/2017 TRIAMCINOLONE ACET INJ NOS CPT-4: J3301 02/01/2017 DEXAMETHASONE SODIUM PHOS CPT-4: J1100 02/01/2017 ROUTINE VENIPUNCTURE CPT-4: 21992 12/27/2016 COMPLETE CBC W/AUTO DIFF WBC CPT-4: 25035 12/27/2016 ROUTINE VENIPUNCTURE CPT-4: 78780 12/21/2016 COMPLETE CBC W/AUTO DIFF WBC CPT-4: 97363 12/21/2016 ROUTINE VENIPUNCTURE CPT-4: 07890 12/12/2016 COMPLETE CBC W/AUTO DIFF WBC CPT-4: 63438 12/12/2016 PRESCRIP TRANSMIT VIA ERX SY CPT-4: G8553 10/31/2016 PRESCRIP TRANSMIT VIA ERX SY CPT-4: G8553 10/03/2016 PRESCRIP TRANSMIT VIA ERX SY CPT-4: G8553 09/04/2016 DESTRUCT PREMALG LESION (Cryosurgery) CPT-4: 99590 DESTRUCT PREMALG LES 2-14 CPT-4: 55981 08/22/2016 PRESCRIP TRANSMIT VIA ERX SY CPT-4: G8553 08/10/2016 PRESCRIP TRANSMIT VIA ERX SY CPT-4: G8553 07/06/2016 FLU VACC PRSV FREE INC ANTIG 65 AND OLDER CPT-4: 96495 06/13/2016 PNEUMOCOCCAL VACC 13 OLIVIA IM CPT-4: 85435 06/13/2016 ADMIN INFLUENZA VIRUS VAC CPT-4: G0008 06/13/2016 ADMIN PNEUMOCOCCAL VACCINE CPT-4: G0009 06/13/2016 CERUM REMOVAL CPT-4: 29541 04/05/2016 PRESCRIP TRANSMIT VIA ERX SY CPT-4: G8553 04/03/2016 ROUTINE VENIPUNCTURE CPT-4: 03393 03/06/2016 ASSAY OF FREE THYROXINE CPT-4: 24112 03/06/2016 ASSAY THYROID STIM HORMONE CPT-4: 43083 03/06/2016 COMPREHEN METABOLIC PANEL CPT-4: 83719 03/06/2016 COMPLETE CBC W/AUTO DIFF WBC CPT-4: 34896 03/06/2016 LIPID PANEL CPT-4: 89881 03/06/2016 ASSAY OF PSA TOTAL CPT-4: 93821 03/06/2016 TESTOSTERONE TOTAL - MALE CPT-4: 25056 03/06/2016 A1C HPLC CPT-4: 77489 03/06/2016 ASSAY OF IRON CPT-4: 18993 03/06/2016 VITAMIN B-12 CPT-4: 68000 03/06/2016 INJ TENDON SHEATH/LIGAMENT CPT-4: 50723 02/17/2016 TRIAMCINOLONE ACET INJ NOS CPT-4: J3301 02/17/2016 DEXAMETHASONE SODIUM PHOS CPT-4: J1100 02/17/2016 PRESCRIP TRANSMIT VIA ERX SY CPT-4: G8553 01/31/2016 PRESCRIP TRANSMIT VIA ERX SY CPT-4: G8553 12/30/2015 PRESCRIP TRANSMIT VIA ERX SY CPT-4: G8553 12/06/2015 PRESCRIP TRANSMIT VIA ERX SY CPT-4: G8553 11/15/2015 PPPS, subseq visit CPT-4: G0439 10/05/2015 MICROALBUMIN QUANTITATIVE CPT-4: 36359 10/05/2015 PROTEIN/CREAT URINE WITH RATIO CPT-4: 19330|98558 6 ROUTINE VENIPUNCTURE CPT-4: 74386 07/01/2015 ASSAY OF FREE THYROXINE CPT-4: 59624 07/01/2015 ASSAY THYROID STIM HORMONE CPT-4: 81355 07/01/2015 COMPLETE CBC W/AUTO DIFF WBC CPT-4: 16784 07/01/2015 LIPID PANEL CPT-4: 97208 07/01/2015 ASSAY OF PSA TOTAL CPT-4: 55758 07/01/2015 AEROBIC WOUND CULTURE & STN CPT-4: 16767 06/28/2015 PRESCRIP TRANSMIT VIA ERX SY CPT-4: G8553 06/28/2015 AEROBIC WOUND CULTURE & STN CPT-4: 80914 06/03/2015 PRESCRIP TRANSMIT VIA ERX SY CPT-4: G8553 06/03/2015 ROUTINE VENIPUNCTURE CPT-4: 48011 06/01/2015 COMPREHEN METABOLIC PANEL CPT-4: 58404 06/01/2015 A1C HPLC CPT-4: 04246 06/01/2015 COMPREHEN METABOLIC PANEL CPT-4: 38091 02/25/2015 A1C HPLC CPT-4: 84456 02/25/2015 DESTRUCT PREMALG LESION (Cryosurgery) CPT-4: 18786 PROTEIN/CREAT URINE WITH RATIO CPT-4: 15887|20366 5 MICROALBUMIN QUANTITATIVE CPT-4: 45963 10/27/2014 INFLUENZA ASSAY W/OPTIC CPT-4: 18876 10/21/2014 PRESCRIP TRANSMIT VIA ERX SY CPT-4: G8553 10/06/2014 PRESCRIP TRANSMIT VIA ERX SY CPT-4: G8553 09/21/2014 PRESCRIP TRANSMIT VIA ERX SY CPT-4: G8553 09/02/2014 MICROALBUMIN QUANTITATIVE CPT-4: 77947 08/27/2014 PROTEIN/CREAT URINE WITH RATIO CPT-4: 49997|82071 4 PPPS, subseq visit CPT-4: G0439 08/10/2014 ROUTINE VENIPUNCTURE CPT-4: 09520 08/05/2014 ASSAY OF FREE THYROXINE CPT-4: 58181 08/05/2014 ASSAY THYROID STIM HORMONE CPT-4: 17511 08/05/2014 COMPREHEN METABOLIC PANEL CPT-4: 15258 08/05/2014 COMPLETE CBC W/AUTO DIFF WBC CPT-4: 61638 08/05/2014 LIPID PANEL CPT-4: 16790 08/05/2014 A1C HPLC CPT-4: 95851 08/05/2014 FLUZONE, 5ML (Medicare) CPT-4: Q2038 08/05/2014 ADMIN INFLUENZA VIRUS VAC CPT-4: G0008 08/05/2014 METHYLPREDNISOLONE 40 MG INJ CPT-4: J1030 12/16/2013 TRIAMCINOLONE ACET INJ NOS CPT-4: J3301 12/16/2013 DRAIN/INJECT JOINT/BURSA CPT-4: 16305 12/16/2013 PRESCRIP TRANSMIT VIA ERX SY CPT-4: G8553 10/09/2013 THER/PROPH/DIAG INJ SC/IM CPT-4: 51724 09/18/2013 METHYLPREDNISOLONE 40 MG INJ CPT-4: J1030 09/18/2013 TRIAMCINOLONE ACET INJ NOS CPT-4: J3301 09/18/2013 PRESCRIP TRANSMIT VIA ERX SY CPT-4: G8553 09/18/2013 PRESCRIP TRANSMIT VIA ERX SY CPT-4: G8553 08/13/2013 ROUTINE VENIPUNCTURE CPT-4: 19308 06/25/2013 ASSAY OF FREE THYROXINE CPT-4: 22112 06/25/2013 ASSAY THYROID STIM HORMONE CPT-4: 18527 06/25/2013 COMPREHEN METABOLIC PANEL CPT-4: 62235 06/25/2013 COMPLETE CBC W/AUTO DIFF WBC CPT-4: 18938 06/25/2013 LIPID PANEL CPT-4: 69919 06/25/2013 A1C GLYCOSYLATED HEMOGLOBIN TEST CPT-4: 57790 013 ROUTINE VENIPUNCTURE CPT-4: 04285 04/09/2013 COMPLETE CBC W/AUTO DIFF WBC CPT-4: 28377 04/09/2013 MYCOPLASMA ANTIBODY, IFA CPT-4: 46425J9 04/09/2013 ROUTINE VENIPUNCTURE CPT-4: 87587 02/11/2013 ASSAY OF FREE THYROXINE CPT-4: 65981 02/11/2013 ASSAY THYROID STIM HORMONE CPT-4: 45407 02/11/2013 COMPREHEN METABOLIC PANEL CPT-4: 50332 02/11/2013 COMPLETE CBC W/AUTO DIFF WBC CPT-4: 98282 02/11/2013 VITAMIN B 12 FOLIC ACID CPT-4: 10939|04111 02/11/2013 C-REACTIVE PROTEIN CPT-4: 92696 02/11/2013 A1C GLYCOSYLATED HEMOGLOBIN TEST CPT-4: 44811 013 ASSAY OF BLOOD/URIC ACID CPT-4: 52794 02/11/2013 CEFTRIAXONE SODIUM INJECTION CPT-4: J0696 01/31/2013 THER/PROPH/DIAG INJ SC/IM CPT-4: 93207 01/31/2013 THER/PROPH/DIAG INJ SC/IM CPT-4: 55026 01/31/2013 METHYLPREDNISOLONE 40 MG INJ CPT-4: J1030 01/31/2013 TRIAMCINOLONE ACET INJ NOS CPT-4: J3301 01/31/2013 ROUTINE VENIPUNCTURE CPT-4: 34153 09/19/2012 COMPREHEN METABOLIC PANEL CPT-4: 58499 09/19/2012 LIPID PANEL CPT-4: 57047 09/19/2012 A1C GLYCOSYLATED HEMOGLOBIN TEST CPT-4: 97205 012 PNEUMOCOCCAL VACC 23 OLIVIA IM CPT-4: 04100 07/10/2012 FLUZONE, 5ML (Medicare) CPT-4: Q2038 07/10/2012 ADMIN INFLUENZA VIRUS VAC CPT-4: G0008 07/10/2012 ADMIN PNEUMOCOCCAL VACCINE CPT-4: G0009 07/10/2012 ROUTINE VENIPUNCTURE CPT-4: 06809 05/06/2012 ASSAY OF FREE THYROXINE CPT-4: 55569 05/06/2012 ASSAY THYROID STIM HORMONE CPT-4: 01579 05/06/2012 COMPREHEN METABOLIC PANEL CPT-4: 37972 05/06/2012 COMPLETE CBC W/AUTO DIFF WBC CPT-4: 27141 05/06/2012 LIPID PANEL CPT-4: 65257 05/06/2012 A1C GLYCOSYLATED HEMOGLOBIN TEST CPT-4: 31723 012 IMMUNIZATION ADMIN CPT-4: 52291 02/05/2012 FLUZONE, 5ML (Medicare) CPT-4: Q2038 08/10/2011 ADMIN INFLUENZA VIRUS VAC CPT-4: G0008 08/10/2011 ROUTINE VENIPUNCTURE CPT-4: 59032 07/26/2011 ASSAY OF FREE THYROXINE CPT-4: 22560 07/26/2011 ASSAY THYROID STIM HORMONE CPT-4: 40628 07/26/2011 COMPREHEN METABOLIC PANEL CPT-4: 07715 07/26/2011 COMPLETE CBC W/AUTO DIFF WBC CPT-4: 03300 07/26/2011 LIPID PANEL CPT-4: 73259 07/26/2011 A1C GLYCOSYLATED HEMOGLOBIN TEST CPT-4: 57485 011 ASSAY OF PSA TOTAL CPT-4: 52567 07/26/2011 ROUTINE VENIPUNCTURE CPT-4: 26588 01/19/2011 ASSAY OF NATRIURETIC PEPTIDE CPT-4: 24676 01/19/2011 THER/PROPH/DIAG INJ SC/IM CPT-4: 98873 01/19/2011 CEFTRIAXONE SODIUM INJECTION CPT-4: J0696 01/19/2011 METHYLPREDNISOLONE INJECTION CPT-4: J2930 01/19/2011 THER/PROPH/DIAG INJ SC/IM CPT-4: 37351 01/19/2011 THER/PROPH/DIAG INJ SC/IM CPT-4: 82319 01/18/2011 CEFTRIAXONE SODIUM INJECTION CPT-4: J0696 01/18/2011 METHYLPREDNISOLONE INJECTION CPT-4: J2930 01/18/2011 THER/PROPH/DIAG INJ SC/IM CPT-4: 76136 01/18/2011 THER/PROPH/DIAG INJ SC/IM CPT-4: 26329 12/21/2010 TESTOSTERONE CYPIONAT 100 MG CPT-4: J1070 12/21/2010 ROUTINE VENIPUNCTURE CPT-4: 40146 12/19/2010 TESTOSTERONE TOTAL - MALE CPT-4: 12240 12/19/2010 ROUTINE VENIPUNCTURE CPT-4: 79890 12/07/2010 COMPLETE CBC W/AUTO DIFF WBC CPT-4: 41071 12/07/2010 COMPREHEN METABOLIC PANEL CPT-4: 37656 12/07/2010 LIPID PANEL CPT-4: 19176 12/07/2010 A1C GLYCOSYLATED HEMOGLOBIN TEST CPT-4: 54528 011 ASSAY OF PSA TOTAL CPT-4: 65942 12/07/2010 ROUTINE VENIPUNCTURE CPT-4: 88710 04/05/2010 PRESCRIP TRANSMIT VIA ERX SY CPT-4: G8553 04/05/2010 ROUTINE VENIPUNCTURE CPT-4: 55666 01/13/2010 METHYLPREDNISOLONE INJECTION CPT-4: J2930 12/22/2009 THER/PROPH/DIAG INJ SC/IM CPT-4: 66311 12/22/2009 THER/PROPH/DIAG INJ SC/IM CPT-4: 63237 12/22/2009 CEFTRIAXONE SODIUM INJECTION CPT-4: J0696 12/22/2009 ROUTINE VENIPUNCTURE CPT-4: 79447 12/22/2009 COMPLETE CBC W/AUTO DIFF WBC CPT-4: 86649 12/22/2009 RBC SED RATE, AUTOMATED CPT-4: 73480 12/22/2009 RPR FE/E/EN/L/M 20.1-30.0 CM CPT-4: 42148 12/22/2009 EKG FOR INITIAL PREVENT EXAM CPT-4: G0403 12/22/2009 THER/PROPH/DIAG INJ SC/IM CPT-4: 32399 12/16/2009 KETOROLAC TROMETHAMINE INJ CPT-4: J1885 12/16/2009 Vital Signs Date Vital 11/12/2019 Blood Pressure 1: 142/66 Code: 8480-6 [...] 1: 126/68 Code: 8480-6 BMI: 30.2 Code: 60097-2 Heart Rate 1: 92 bpm Height: 6' Respiratory Rate: 22 bpm SpO2: 94% Tempera ture: 36.9 (C) / 98.5 (F) Weight: 223 lbs 08/21/2018 Blood Pressure 1: 160/70 Code: 8480-6 Heart Rate 1: 79 bpm Respiratory Rate: 20 bpm SpO2: 94% Temperature: 36.7 (C) / 98.0 (F) We ight: 226 lbs 8 oz 08/07/2018 Blood Pressure 1: 138/70 Code: 8480-6 BMI: 30.1 Code: 45281-3 Heart Rate 1: 80 bpm Height: 6' Respiratory Rate: 20 bpm SpO2: 94% Tempera ture: 36.9 (C) / 98.5 (F) Weight: 222 lbs 05/23/2018 Blood Pressure 1: 148/66 Code: 8480-6 BMI: 30.0 Code: 87415-0 Heart Rate 1: 96 bpm Height: 6' Respiratory Rate: 22 bpm SpO2: 94% Tempera ture: 37.3 (C) / 99.1 (F) Weight: 221 lbs 05/02/2018 Blood Pressure 1: 146/78 Code: 8480-6 BMI: 29.6 Code: 07666-1 Heart Rate 1: 78 bpm Height: 6' Respiratory Rate: 26 bpm SpO2: 94% Tempera ture: 35.7 (C) / 96.2 (F) Weight: 218 lbs 04/29/2018 Blood Pressure 1: 142/62 Code: 8480-6 BMI: 28.6 Code: 11989-4 Heart Rate 1: 82 bpm Height: 6' Respiratory Rate: 22 bpm SpO2: 98% Tempera ture: 36.4 (C) / 97.6 (F) Weight: 211 lbs 04/22/2018 Blood Pressure 1: 126/64 Code: 8480-6 BMI: 30.0 Code: 58782-0 Heart Rate 1: 96 bpm Height: 6' [...] 1: 144/78 Code: 8480-6 BMI: 30.7 Code: 57756-4 Heart Rate 1: 92 bpm Height: 6' Respiratory Rate: 28 bpm SpO2: 94% Tempera ture: 36.9 (C) / 98.4 (F) Weight: 226 lbs 12/28/2017 Blood Pressure 1: 136/80 Code: 8480-6 Heart Rate 1: 92 bpm Respiratory Rate: 28 bpm SpO2: 94% Temperature: 36.7 (C) / 98.1 (F) 12/21/2017 Blood Pressure 1: 146/84 Code: 8480-6 BMI: 31.1 Code: 29700-2 Heart Rate 1: 84 bpm Height: 6' [...] 1: 142/64 Code: 8480-6 BMI: 31.3 Code: 60725-4 Heart Rate 1: 98 bpm Height: 6' Respiratory Rate: 24 bpm SpO2: 94% Tempera ture: 36.4 (C) / 97.6 (F) Weight: 231 lbs 10/17/2017 Blood Pressure 1: 140/68 Code: 8480-6 BMI: 31.7 Code: 26320-2 Heart Rate 1: 88 bpm Height: 6' Respiratory Rate: 20 bpm SpO2: 94% Tempera ture: 36.8 (C) / 98.3 (F) Weight: 234 lbs 08/02/2017 Blood Pressure 1: 142/80 Code: 8480-6 BMI: 31.1 Code: 66352-7 Heart Rate 1: 86 bpm Height: 6' Respiratory Rate: 20 bpm SpO2: 90% Tempera ture: 35.9 (C) / 96.7 (F) Weight: 229 lbs 07/02/2017 Blood Pressure 1: 146/64 Code: 8480-6 BMI: 29.6 Code: 81246-9 Heart Rate 1: 96 bpm Height: 6' Respiratory Rate: 20 bpm Temperature: 36 .4 (C) / 97.6 (F) Weight: 218 lbs 05/29/2017 Blood Pressure 1: 152/68 Code: 8480-6 BMI: 31.5 Code: 97631-2 Heart Rate 1: 100 bpm Height: 6' Respiratory Rate: 20 bpm SpO2: 92% Tempera ture: 36.9 (C) / 98.4 (F) Weight: 232 lbs 02/01/2017 Blood Pressure 1: 146/64 Code: 8480-6 BMI: 30.7 Code: 89420-7 Heart Rate 1: 76 bpm Height: 6' Respiratory Rate: 20 bpm SpO2: 95% Tempera ture: 36.8 (C) / 98.2 (F) Weight: 226 lbs 01/29/2017 Blood Pressure 1: 146/78 Code: 8480-6 Heart Rate 1: 84 bpm Respiratory Rate: 20 bpm SpO2: 96% Temperature: 36.1 (C) / 97.0 (F) We ight: 226 lbs 12/21/2016 Blood Pressure 1: 126/60 Code: 8480-6 BMI: 30.8 Code: 48768-0 Heart Rate 1: 88 bpm Height: 6' Respiratory Rate: 22 bpm SpO2: 94% Tempera ture: 36.7 (C) / 98.0 (F) Weight: 227 lbs 12/14/2016 Blood Pressure 1: 126/70 Code: 8480-6 BMI: 29.8 Code: 25867-0 Heart Rate 1: 92 bpm Height: 6' Respiratory Rate: 22 bpm SpO2: 93% Tempera ture: 36.8 (C) / 98.2 (F) Weight: 220 lbs 11/14/2016 Blood Pressure 1: 128/62 Code: 8480-6 Heart Rate 1: 100 bpm Respiratory Rate: 20 bpm SpO2: 96% Temperature: 36.6 (C) / 97.8 (F) We ight: 220 lbs 10/31/2016 Blood Pressure 1: 142/60 Code: 8480-6 BMI: 30.1 Code: 53977-3 Heart Rate 1: 112 bpm Height: 6' Respiratory Rate: 24 bpm SpO2: 93% Tempera ture: 37.1 (C) / 98.7 (F) Weight: 222 lbs 10/03/2016 Blood Pressure 1: 136/78 Code: 8480-6 Heart Rate 1: 106 bpm Respiratory Rate: 24 bpm SpO2: 93% Temperature: 36.6 (C) / 97.8 (F) We ight: 221 lbs 09/04/2016 Blood Pressure 1: 112/44 Code: 8480-6 BMI: 30.1 Code: 52078-2 Heart Rate 1: 90 bpm Height: 6' Respiratory Rate: 20 bpm SpO2: 93% Tempera ture: 36.6 (C) / 97.9 (F) Weight: 222 lbs 08/22/2016 Blood Pressure 1: 142/68 Code: 8480-6 BMI: 30.4 Code: 85294-7 Heart Rate 1: 100 bpm Height: 6' Respiratory Rate: 24 bpm SpO2: 93% Tempera ture: 36.7 (C) / 98.1 (F) Weight: 224 lbs 08/10/2016 Blood Pressure 1: 134/60 Code: 8480-6 BMI: 30.2 Code: 49747-2 Heart Rate 1: 76 bpm Height: 6' [...] 1: 122/72 Code: 8480-6 BMI: 30.7 Code: 05434-7 Heart Rate 1: 96 bpm Height: 6' Respiratory Rate: 22 bpm SpO2: 96% Tempera ture: 35.9 (C) / 96.7 (F) Weight: 226 lbs 04/03/2016 Blood Pressure 1: 146/64 Code: 8480-6 BMI: 30.8 Code: 95104-9 Heart Rate 1: 76 bpm Height: 6' Respiratory Rate: 20 bpm Temperature: 36 .8 (C) / 98.2 (F) Weight: 227 lbs 03/02/2016 Blood Pressure 1: 148/60 Code: 8480-6 BMI: 31.1 Code: 67737-6 Heart Rate 1: 80 bpm Height: 6' Respiratory Rate: 22 bpm SpO2: 94% Tempera ture: 36.6 (C) / 97.8 (F) Weight: 229 lbs 02/17/2016 Blood Pressure 1: 132/60 Code: 8480-6 BMI: 31.3 Code: 75715-4 Heart Rate 1: 80 bpm Height: 6' Respiratory Rate: 20 bpm Temperature: 36 .9 (C) / 98.4 (F) Weight: 231 lbs 02/14/2016 Blood Pressure 1: 126/70 Code: 8480-6 BMI: 31.3 Code: 19016-2 Heart Rate 1: 80 bpm Height: 6' Respiratory Rate: 24 bpm SpO2: 95% Tempera ture: 36.9 (C) / 98.5 (F) Weight: 231 lbs 01/31/2016 Blood Pressure 1: 136/60 Code: 8480-6 Heart Rate 1: 76 bpm Respiratory Rate: 22 bpm Temperature: 37.0 (C) / 98.6 (F) Weight: 230 lbs 12/30/2015 Blood Pressure 1: 128/58 Code: 8480-6 BMI: 31.2 Code: 97742-7 Heart Rate 1: 80 bpm Height: 6' Respiratory Rate: 20 bpm Temperature: 36 .8 (C) / 98.2 (F) Weight: 230 lbs 12/16/2015 Blood Pressure 1: 122/60 Code: 8480-6 BMI: 32.0 Code: 48244-0 Heart Rate 1: 84 bpm Height: 6' Respiratory Rate: 24 bpm Temperature: 37 .1 (C) / 98.7 (F) Weight: 236 lbs 12/06/2015 Blood Pressure 1: 162/74 Code: 8480-6 BMI: 32.5 Code: 63165-6 Heart Rate 1: 90 bpm Height: 6' Respiratory Rate: 20 bpm SpO2: 96% Tempera ture: 36.4 (C) / 97.6 (F) Weight: 240 lbs 11/15/2015 Blood Pressure 1: 166/80 Code: 8480-6 BMI: 32.4 Code: 91542-1 Heart Rate 1: 92 bpm Height: 6' Respiratory Rate: 28 bpm Temperature: 36 .5 (C) / 97.7 (F) Weight: 239 lbs 10/05/2015 Blood Pressure 1: 146/76 Code: 8480-6 BMI: 32.4 Code: 27921-6 Heart Rate 1: 88 bpm Height: 6' Respiratory Rate: 28 bpm Temperature: 37 .1 (C) / 98.7 (F) Weight: 239 lbs 07/22/2015 Blood Pressure 1: 144/68 Code: 8480-6 BMI: 31.9 Code: 35060-4 Heart Rate 1: 88 bpm Height: 6' [...] 1: 142/64 Code: 8480-6 BMI: 32.1 Code: 17968-0 Heart Rate 1: 80 bpm Height: 6' Respiratory Rate: 18 bpm Temperature: 36 .4 (C) / 97.6 (F) Weight: 237 lbs 06/07/2015 Blood Pressure 1: 164/58 Code: 8480-6 BMI: 32.1 Code: 91522-1 Heart Rate 1: 88 bpm Height: 6' Respiratory Rate: 20 bpm Temperature: 36 .6 (C) / 97.9 (F) Weight: 237 lbs 06/03/2015 Blood Pressure 1: 152/64 Code: 8480-6 BMI: 32.1 Code: 13878-2 Heart Rate 1: 96 bpm Height: 6' Respiratory Rate: 20 bpm Temperature: 37 .4 (C) / 99.3 (F) Weight: 237 lbs 06/01/2015 Blood Pressure 1: 136/70 Code: 8480-6 BMI: 31.7 Code: 42428-2 Heart Rate 1: 72 bpm Height: 6' Respiratory Rate: 22 bpm SpO2: 94% Tempera ture: 36.6 (C) / 97.9 (F) Weight: 234 lbs 02/25/2015 Blood Pressure 1: 146/80 Code: 8480-6 BMI: 32.4 Code: 59734-3 Heart Rate 1: 84 bpm Height: 6' Respiratory Rate: 28 bpm Temperature: 36 .7 (C) / 98.0 (F) Weight: 239 lbs 10/27/2014 Blood Pressure 1: 168/70 Code: 8480-6 BMI: 32.0 Code: 19858-9 Heart Rate 1: 80 bpm Height: 6' Respiratory Rate: 30 bpm SpO2: 98% Tempera ture: 36.4 (C) / 97.6 (F) Weight: 236 lbs 10/21/2014 Blood Pressure 1: 152/58 Code: 8480-6 BMI: 32.1 Code: 43486-3 Heart Rate 1: 78 bpm Height: 6' Respiratory Rate: 20 bpm Temperature: 37 .8 (C) / 100.1 (F) Weight: 237 lbs 10/06/2014 Blood Pressure 1: 132/64 Code: 8480-6 BMI: 32.5 Code: 82262-8 Heart Rate 1: 88 bpm Height: 6' Respiratory Rate: 32 bpm SpO2: 94% Tempera ture: 36.8 (C) / 98.2 (F) Weight: 240 lbs 09/21/2014 Blood Pressure 1: 134/68 Code: 8480-6 BMI: 32.4 Code: 77930-3 Heart Rate 1: 96 bpm Height: 6' Respiratory Rate: 30 bpm Temperature: 36 .7 (C) / 98.1 (F) Weight: 239 lbs 09/08/2014 Blood Pressure 1: 128/74 Code: 8480-6 BMI: 32.4 Code: 81580-8 Heart Rate 1: 82 bpm Height: 6' Respiratory Rate: 28 bpm SpO2: 93% Tempera ture: 36.6 (C) / 97.8 (F) Weight: 239 lbs 09/02/2014 Blood Pressure 1: 164/78 Code: 8480-6 Heart Rate 1: 86 bpm Respiratory Rate: 22 bpm SpO2: 96% Temperature: 36.1 (C) / 97.0 (F) We ight: 239 lbs 08/10/2014 Blood Pressure 1: 152/60 Code: 8480-6 BMI: 32.8 Code: 41684-1 Heart Rate 1: 80 bpm Height: 6' [...] 1: 146/80 Code: 8480-6 BMI: 33.9 Code: 78162-2 Heart Rate 1: 80 bpm Height: 6' [...] 1: 148/78 Code: 8480-6 BMI: 30.5 Code: 56552-7 Heart Rate 1: 84 bpm Height: 6' Respiratory Rate: 28 bpm SpO2: 97% Tempera ture: 36.4 (C) / 97.5 (F) Weight: 225 lbs 08/06/2013 Blood Pressure 1: 158/70 Code: 8480-6 Heart Rate 1: 110 bpm Respiratory Rate: 22 bpm SpO2: 88% Temperature: 39.7 (C) / 103.4 (F) W eight: 07/16/2013 Blood Pressure 1: 148/82 Code: 8480-6 BMI: 31.9 Code: 24769-2 Heart Rate 1: 80 bpm Height: 6' Respiratory Rate: 20 bpm Temperature: 36 .6 (C) / 97.9 (F) Weight: 235 lbs 04/09/2013 Blood Pressure 1: 142/78 Code: 8480-6 BMI: 31.5 Code: 57313-5 Heart Rate 1: 88 bpm Height: 6' Respiratory Rate: 32 bpm SpO2: 95% Tempera ture: 37.0 (C) / 98.6 (F) Weight: 232 lbs 02/11/2013 Blood Pressure 1: 146/70 Code: 8480-6 Heart Rate 1: 88 bpm Respiratory Rate: 20 bpm Temperature: 36.8 (C) / 98.3 (F) Weight: 230 lbs 01/31/2013 Blood Pressure 1: 128/70 Code: 8480-6 BMI: 31.6 Code: 40710-7 Heart Rate 1: 84 bpm Height: 6' Respiratory Rate: 24 bpm SpO2: 92% Tempera ture: 36.7 (C) / 98.0 (F) Weight: 233 lbs 01/20/2013 Blood Pressure 1: 148/64 Code: 8480-6 BMI: 31.6 Code: 50088-6 Heart Rate 1: 68 bpm Height: 6' Temperature: 36.1 (C) / 97.0 (F) Weight: 233 lbs 12/19/2012 Blood Pressure 1: 128/68 Code: 8480-6 BMI: 32.0 Code: 09365-3 Heart Rate 1: 64 bpm Height: 6' Temperature: 36.7 (C) / 98.0 (F) Weight: 236 lbs 10/21/2012 Blood Pressure 1: 142/64 Code: 8480-6 BMI: 30.9 Code: 41383-1 Heart Rate 1: 74 bpm Height: 6' Temperature: 36.2 (C) / 97.1 (F) Weight: 228 lbs 09/18/2012 Blood Pressure 1: 126/60 Code: 8480-6 BMI: 31.3 Code: 47123-9 Heart Rate 1: 88 bpm Height: 6' Respiratory Rate: 20 bpm Temperature: 36 .5 (C) / 97.7 (F) Weight: 231 lbs 08/28/2012 Blood Pressure 1: 132/68 Code: 8480-6 BMI: 31.5 Code: 78855-6 Heart Rate 1: 92 bpm Height: 6' Respiratory Rate: 30 bpm SpO2: 94% Tempera ture: 37.1 (C) / 98.7 (F) Weight: 232 lbs 07/10/2012 Blood Pressure 1: 118/70 Code: 8480-6 BMI: 30.5 Code: 78179-1 Heart Rate 1: 72 bpm Height: 6' Respiratory Rate: 24 bpm SpO2: 96% Tempera ture: 36.7 (C) / 98.0 (F) Weight: 225 lbs 05/09/2012 Blood Pressure 1: 124/68 Code: 8480-6 BMI: 29.8 Code: 57013-1 Heart Rate 1: 72 bpm Height: 6' Respiratory Rate: 20 bpm Temperature: 36 .8 (C) / 98.2 (F) Weight: 220 lbs 10/02/2011 Blood Pressure 1: 140/82 Code: 8480-6 BMI: 30.7 Code: 23556-4 Heart Rate 1: 68 bpm Height: 6' Temperature: 36.7 (C) / 98.0 (F) Weight: 226 lbs 08/07/2011 Blood Pressure 1: 122/68 Code: 8480-6 BMI: 30.5 Code: 64849-7 Heart Rate 1: 72 bpm Height: 6' [...] 1: 140/78 Code: 8480-6 BMI: 31.9 Code: 88662-4 Heart Rate 1: 84 bpm Height: 6' Temperature: 36.6 (C) / 97.8 (F) Weight: 235 lbs 12/22/2009 Blood Pressure 1: 140/74 Code: 8480-6 BMI: 31.9 Code: 33112-0 Heart Rate 1: 94 bpm Height: 6' SpO2: 92% Temperature: 35.7 (C) / 96.2 (F) Weight: 235 lbs 12/13/2009 Blood Pressure 1: 146/80 Code: 8480-6 BMI: 33.0 Code: 54307-9 Heart Rate 1: 86 bpm Height: 6' Temperature: 36.5 (C) / 97.7 (F) Weight: 243 lbs Functional Status No Functional Status data Reason For Visit Reason For Visit Effective Dates Notes knee pain 12/22/2019 fatigue 11/12/2019 follow up 09/11/2019 cough 08/07/2019 cough 07/14/2019 follow up 07/01/2019 vomiting 06/24/2019 follow up 06/17/2019 right knee pain injection(s) 06/10/2019 b12 shot injection(s) 06/02/2019 injection(s) 05/27/2019 injection(s) 05/12/2019 B12 shot follow up 05/08/2019 follow up 04/07/2019 [facility] dizziness 03/24/2019 dizziness 03/21/2019 sore throat 03/13/2019 Patient finished zit hromax last night and has one dose of prednisone left follow up 03/10/2019 ER [facility]---patient cu rrently taking zithromax, prednisone and breathing treatments every two hours spasms/spasticity 02/26/2019 follow up 02/13/2019 follow up 01/14/2019 Hospital fwup follow up 12/25/2018 cough 12/09/2018 here for [...] fighting constantly with her. follow up 04/22/2018 [facility] fwup follow up 01/28/2018 knee pain 01/23/2018 nocturia 01/02/2018 dyspnea 12/28/2017 follow up 12/21/2017 chest congestion 12/17/2017 knee pain 12/11/2017 mole check 11/07/2017 follow up 10/17/2017 ER fwup cough 08/02/2017 injection(s) 07/24/2017 Pneumovax follow up 07/02/2017 Patient recently ariel campos on [facility], but never picked up. He was also given prednisone/Zpack on 06/16/17 from walk in clinic. Patient is also in consult with Dr Benjamin. patient dc'd from hospital last week and reports that he is still taking the antibiotic that was prescribed to him (augmentin) and finished out the prednisone. 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 follow up 05/29/2017 Discuss Low Back [...] nightly. Patient has just been discharged [facility] with [facility]onia. Currently on Levaquin once daily. [...] history would like evaluated follow up 06/13/2016 [facility] COPD w/exac 06/01/2016 Patient states chest tightness, shortness of breath, and fatigue have worsened in the last 2-3 weeks with exertion. otalgia 04/26/2016 cerumen 04/05/2016 Patient has been maximiliano ing ear drops follow up 04/03/2016 2mo fwup follow up 03/13/2016 Patient here for [facility] on medication education for insulin use [...] 02/25/2015 3mo fwup follow up 10/27/2014 Hospital fwup cough 10/21/2014 follow up 10/06/2014 follow up 09/21/2014 Hospital fwup follow up 09/08/2014 Hospital [facility] cough 09/02/2014 well man exam (65+ years) 08/10/2014 lab draw 08/05/2014 flu shot follow up 05/05/2014 6wk fwup follow up 03/24/2014 2wk fwup shortness of breath 03/10/2014 shoulder pain 12/16/2013 Request back brace w hen working/lifting---chiropractor had recommended he get one to wear shortness of breath 10/09/2013 cough 09/18/2013 follow up 08/13/2013 Hospital fwup cough 08/06/2013 follow up 07/16/2013 lab draw [...] 12/13/2009 Encounters Encounter Performer Location Codes Date ([id number]) OFFICE/OUTPATIENT VISIT EST Diagnosis: Noncompliance with diabetes treatment[ICD10: Z91.19] Diagnosis: Insomnia[ICD10: G47.00] Diagnosis: Pain in right knee[ICD10: M25.561] Lita Barakat [facility] CPT-4: 94778 12/22/2019 ([id number]) OFFICE/OUTPATIENT VISIT EST Diagnosis: Chronic respiratory failure with hypercapnia[ICD10: J96.12] Diagnosis: Chronic airway obstruction, not elsewhere classified[ICD10: J44.9] Diagnosis: Basal cell carcinoma, face[ICD10: C44.310] Lita BARAKAT [facility] CPT-4: 20399 11/12/2019 ([id number]) OFFICE/OUTPATIENT VISIT EST Diagnosis: Chronic obstructive pulmonary disease, unspecified[ICD10: J44.9] Diagnosis: Right thyroid nodule[ICD10: E04.1] [facility] 21862 09/11/2019 ([id number]) OFFICE/OUTPATIENT VISIT EST Diagnosis: Chronic bronchitis[ICD10: J42] 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] Diagnosis: FLU VACCINE[ICD10: Z23] Lita [facility] CPT-4: 85889 08/07/2019 ([id number]) OFFICE/OUTPATIENT VISIT EST Diagnosis: Chronic obstructive pulmonary disease with (acute) exacerbation[ICD10: J44.1] [facility]: 60396 07/14/2019 ([id number]) OFFICE/OUTPATIENT VISIT EST Diagnosis: Primary insomnia[ICD10: F51.01] Diagnosis: Dyspepsia and other specified disorders of function of stomach[ICD10: K31.89] [facility]: 62368 07/01/2019 ([id number]) OFFICE/OUTPATIENT VISIT EST Diagnosis: Epigastric pain[ICD10: R10.13] Diagnosis: Nausea[ICD10: R11.0] Diagnosis: Weight loss[ICD10: R63.4] Lita AREVALO [facility] CPT-4: 67564 06/24/2019 ([id number]) OFFICE/OUTPATIENT VISIT EST Diagnosis: Chronic obstructive pulmonary disease, unspecified[ICD10: J44.9] Diagnosis: Chronic insomnia[ICD10: F51.04] Diagnosis: Anemia[ICD10: D64.9] Diagnosis: Diplopia[ICD10: H53.2] Diagnosis: [place][ICD10: F30.9] [facility]: 98249 06/17/2019 ([id number]) NURSE/OUTPATIENT VISIT EST Diagnosis: Vitamin B12 deficiency anemia, unspecified[ICD10: D51.9] Lita BARAKAT [facility] CPT-4: 35949 06/10/2019 ([id number]) NURSE/OUTPATIENT VISIT EST Diagnosis: Vitamin B12 deficiency anemia, unspecified[ICD10: D51.9] Lita BARAKAT [facility] CPT-4: 26116 06/02/2019 ([id number]) NURSE/OUTPATIENT VISIT EST Diagnosis: Vitamin B12 deficiency anemia, unspecified[ICD10: D51.9] Lita BARAKAT [facility] CPT-4: 93673 05/27/2019 ([id number]) NURSE/OUTPATIENT VISIT EST Diagnosis: Vitamin B12 deficiency anemia, unspecified[ICD10: D51.9] Lita BARAKAT [facility] CPT-4: 05163 05/12/2019 ([id number]) OFFICE/OUTPATIENT VISIT EST Diagnosis: Restless legs syndrome[ICD10: G25.81] Diagnosis: Primary insomnia[ICD10: F51.01] Diagnosis: Anemia, unspecified[ICD10: D64.9] Diagnosis: Type 2 diabetes mellitus with hyperglycemia[ICD10: E11.65] Diagnosis: Vitamin D deficiency, unspecified[ICD10: E55.9] Lita BARAKAT DO [facility] CPT-4: 13947 05/08/2019 ([id number]) OFFICE/OUTPATIENT VISIT EST Diagnosis: Pain in right knee[ICD10: M25.561] Diagnosis: Restless legs syndrome[ICD10: G25.81] Diagnosis: Insomnia, unspecified[ICD10: G47.00] Lita BARAKAT DO [facility] CPT-4: 62843 04/07/2019 ([id number]) NO CHARGE Diagnosis: Chronic obstructive pulmonary disease with (acute) exacerbation[ICD10: J44.1] Diagnosis: Dizziness and giddiness[ICD10: R42] Diagnosis: Generalized anxiety disorder[ICD10: F41.1] Autumn BARAKAT DO [facility] CPT-4: 41877 03/24/2019 ([id number]) OFFICE/OUTPATIENT VISIT EST Diagnosis: Chronic obstructive pulmonary disease with (acute) exacerbation[ICD10: J44.1] Diagnosis: Dizziness and giddiness[ICD10: R42] Autumn BARAKAT DO [facility] CPT-4: 65939 03/21/2019 ([id number]) OFFICE/OUTPATIENT VISIT EST Diagnosis: Candidal stomatitis[ICD10: B37.0] Lita BARAKAT DO [facility] CPT-4: 64690 03/13/2019 ([id number]) OFFICE/OUTPATIENT VISIT EST Diagnosis: Chronic obstructive pulmonary disease with acute lower respiratory infection[ICD10: J44.0] Diagnosis: Restless legs syndrome[ICD10: G25.81] Lita BARAKAT DO [facility] CPT-4: 71532 03/10/2019 ([id number]) OFFICE/OUTPATIENT VISIT EST Diagnosis: Restless legs syndrome[ICD10: G25.81] Lita BARAKAT DO [facility] CPT-4: 94904 02/26/2019 ([id number]) OFFICE/OUTPATIENT VISIT EST Diagnosis: Primary insomnia[ICD10: F51.01] Diagnosis: Chronic obstructive pulmonary disease, unspecified[ICD10: J44.9] Lita BARAKAT DO [facility] CPT-4: 23751 02/13/2019 ([id number]) OFFICE/OUTPATIENT VISIT EST Diagnosis: Chronic obstructive pulmonary disease, unspecified[ICD10: J44.9] Diagnosis: Chronic respiratory failure with hypoxia[ICD10: J96.11] Diagnosis: Chronic respiratory failure with hypercapnia[ICD10: J96.12] Lita BARAKAT DO [facility] CPT-4: 32373 01/14/2019 ([id number]) OFFICE/OUTPATIENT VISIT EST Diagnosis: Chronic respiratory failure with hypoxia[ICD10: J96.11] Diagnosis: Patient's noncompliance with other medical treatment and regimen[ICD10: Z91.19] Diagnosis: Chronic obstructive pulmonary disease with (acute) exacerbation[ICD10: J44.1] Lita BARAKAT [employer] [facility] CPT- 4: 15850 12/25/2018 ([id number]) OFFICE/OUTPATIENT VISIT EST Diagnosis: Essential (primary) hypertension[ICD10: I10] Diagnosis: Type 2 diabetes mellitus with hyperglycemia[ICD10: E11.65] Diagnosis: Hypothyroidism, unspecified[ICD10: E03.9] Diagnosis: Hyperlipidemia, unspecified[ICD10: E78.5] Diagnosis: Acute recurrent maxillary sinusitis[ICD10: J01.01] Ines Banerjee LITA DonovanFerdinand YUVAL [employer] [facility] CPT-4: 13262 12/09/2018 ([id number]) OFFICE/OUTPATIENT VISIT EST Diagnosis: Candidal stomatitis[ICD10: B37.0] Lita Segura DonovanFerdinand YUVAL [employer] [facility] CPT-4: 31759 12/05/2018 ([id number]) OFFICE/OUTPATIENT VISIT EST Diagnosis: Acute recurrent sinusitis, unspecified[ICD10: J01.91] Diagnosis: Pain in right knee[ICD10: M25.561] Lita GONZALES DonovanFerdinand YUVAL [employer] [facility] CPT-4: 33079 10/23/2018 ([id number]) OFFICE/OUTPATIENT VISIT EST Diagnosis: Restless legs syndrome[ICD10: G25.81] Diagnosis: Basal cell carcinoma of skin of scalp and neck[ICD10: C44.41] Lita CRAWFORD DonovanFerdinand YUVAL [facility] CPT-4: 68074 08/21/2018 ([id number]) OFFICE/OUTPATIENT VISIT EST Diagnosis: Chronic obstructive pulmonary disease with acute lower respiratory infection[ICD10: J44.0] Diagnosis: Restless legs syndrome[ICD10: G25.81] Lita TRAN DonovanFerdinand YUVAL [employer] [facility] CPT-4: 39985 08/07/2018 ([id number]) OFFICE/OUTPATIENT VISIT EST Diagnosis: Chronic obstructive pulmonary disease with acute lower respiratory infection[ICD10: J44.0] Lita CRAWFORD DonovanFerdinand YUVAL [facility] CPT-4: 81858 05/23/2018 ([id number]) OFFICE/OUTPATIENT VISIT EST Diagnosis: Candidal stomatitis[ICD10: B37.0] Lita Segura DonovanFerdinand YUVAL [employer] [facility] CPT-4: 50959 05/02/2018 ([id number]) OFFICE/OUTPATIENT VISIT EST Diagnosis: Candidal stomatitis[ICD10: B37.0] Diagnosis: Other retention of urine[ICD10: R33.8] Diagnosis: Chronic obstructive pulmonary disease with acute lower respiratory infection[ICD10: J44.0] Autumn BARAKAT DO [facility] CPT-4: 75643 04/29/2018 ([id number]) OFFICE/OUTPATIENT VISIT EST Diagnosis: Chronic obstructive pulmonary disease with acute lower respiratory infection[ICD10: J44.0] Lita BARAKAT DO [facility] CPT-4: 02720 04/22/2018 ([id number]) OFFICE/OUTPATIENT VISIT EST Diagnosis: Unilateral primary osteoarthritis, right knee[ICD10: M17.11] Diagnosis: Squamous cell carcinoma of skin, unspecified[ICD10: C44.92] Lita BARAKAT DO [facility] CPT-4: 98466 01/28/2018 ([id number]) OFFICE/OUTPATIENT VISIT EST Diagnosis: Pain in right knee[ICD10: M25.561] Diagnosis: 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] Lita BARAKAT DO [facility] CPT-4: 76812 01/23/2018 ([id number]) OFFICE/OUTPATIENT VISIT EST Diagnosis: Urinary tract infection, site not specified[ICD10: N39.0] Diagnosis: Chronic obstructive pulmonary disease with acute lower respiratory infection[ICD10: J44.0] Lita BARAKAT DO [facility] CPT-4: 60948 01/02/2018 ([id number]) OFFICE/OUTPATIENT VISIT EST Diagnosis: Chronic obstructive pulmonary disease with (acute) exacerbation[ICD10: J44.1] Autumn BARAKAT DO [facility] CPT- 4: 18585 12/28/2017 ([id number]) OFFICE/OUTPATIENT VISIT EST Diagnosis: Acute bronchitis, unspecified[ICD10: J20.9] Autumn BARAKAT DO [facility] CPT-4: 37920 12/21/2017 ([id number]) OFFICE/OUTPATIENT VISIT EST Diagnosis: Chronic obstructive pulmonary disease with acute lower respiratory infection[ICD10: J44.0] Diagnosis: Pain in right knee[ICD10: M25.561] Autumn BARAKAT DO [facility] CPT-4: 22918 12/17/2017 ([id number]) OFFICE/OUTPATIENT VISIT EST Diagnosis: Laceration without foreign body of right hand, sequela[ICD10: S61.411S] Diagnosis: Restless legs syndrome[ICD10: G25.81] Lita BARAKAT [facility] CPT-4: 14075 10/17/2017 OFFICE/OUTPATIENT VISIT EST Diagnosis: Chronic obstructive pulmonary disease with acute lower respiratory infection[ICD10: J44.0] Autumn BARAKAT [facility] CPT-4: 87862 08/02/2017 ([id number]) OFFICE/OUTPATIENT VISIT EST Diagnosis: PNEUMOCOCCAL VACCINE[ICD10: Z23] Lita BARAKAT [facility] CPT-4: 00401 07/24/2017 OFFICE/OUTPATIENT VISIT EST Diagnosis: Chronic obstructive pulmonary disease with (acute) exacerbation[ICD10: J44.1] Autumn BARAKAT [facility] CPT- 4: 25000 07/02/2017 OFFICE/OUTPATIENT VISIT EST Diagnosis: Low back pain[ICD10: M54.5] Ruchi Buchanan LITA DonovanFerdinand Filiberto BRANDIN [facility] CPT-4: 56103 05/29/2017 ([id number]) OFFICE/OUTPATIENT VISIT EST Diagnosis: Essential (primary) hypertension[ICD10: I10] Diagnosis: Hypothyroidism, unspecified[ICD10: E03.9] Diagnosis: Dizziness and giddiness[ICD10: R42] Diagnosis: Other abnormality of red blood cells[ICD10: R71.8] Diagnosis: Contracture of muscle, unspecified site[ICD10: M62.40] Lita ALYLINE Ashley BARAKAT [facility] CPT-4: 50905 04/17/2017 OFFICE/OUTPATIENT VISIT EST Diagnosis: Pain in left shoulder[ICD10: M25.512] Ruchi PIEDRA MARC Ashley BARAKAT DO [facility] CPT-4: 38760 01/29/2017 ([id number]) OFFICE/OUTPATIENT VISIT EST Diagnosis: Anemia, unspecified[ICD10: D64.9] Lita BARAKAT DO [facility] CPT-4: 26137 12/27/2016 ([id number]) OFFICE/OUTPATIENT VISIT EST Diagnosis: Other fatigue[ICD10: R53.83] Diagnosis: Other iron deficiency anemias[ICD10: D50.8] Lita BARAKAT DO [facility] CPT-4: 99822 12/21/2016 ([id number]) OFFICE/OUTPATIENT VISIT EST Diagnosis: Anemia, unspecified[ICD10: D64.9] Diagnosis: Other fatigue[ICD10: R53.83] Diagnosis: Restless legs syndrome[ICD10: G25.81] Lita BARAKAT DO [facility] CPT-4: 48456 12/14/2016 ([id number]) OFFICE/OUTPATIENT VISIT EST Diagnosis: Anemia, unspecified[ICD10: D64.9] Diagnosis: Other abnormality of red blood cells[ICD10: R71.8] Lita BARAKAT DO [facility] CPT-4: 19492 12/12/2016 ([id number]) OFFICE/OUTPATIENT VISIT EST Diagnosis: Pneumonia, unspecified organism[ICD10: J18.9] Diagnosis: Restless legs syndrome[ICD10: G25.81] Magda BARAKAT DO [facility] CPT-4: 91044 11/14/2016 ([id number]) OFFICE/OUTPATIENT VISIT EST Diagnosis: Candidal stomatitis[ICD10: B37.0] Lita BARAKTA DO [facility] CPT-4: 83808 10/31/2016 ([id number]) OFFICE/OUTPATIENT VISIT EST Diagnosis: Acute upper respiratory infection, unspecified[ICD10: J06.9] Diagnosis: Personal history of pneumonia (recurrent)[ICD10: Z87.01] Magda BARAKAT DO [facility] CPT-4: 31544 10/03/2016 ([id number]) OFFICE/OUTPATIENT VISIT EST Diagnosis: Restless legs syndrome[ICD10: G25.81] Diagnosis: Insomnia, unspecified[ICD10: G47.00] Magda BARAKAT [facility] CPT-4: 33885 09/04/2016 ([id number]) OFFICE/OUTPATIENT VISIT EST Diagnosis: Restless legs syndrome[ICD10: G25.81] Diagnosis: Primary insomnia[ICD10: F51.01] Lita BARAKAT [facility] CPT-4: 68095 08/10/2016 OFFICE/OUTPATIENT VISIT EST Diagnosis: Toxic gastroenteritis and colitis[ICD10: K52.1] Diagnosis: Dizziness and giddiness[ICD10: R42] Diagnosis: Headache[ICD10: R51] Diagnosis: Restless legs syndrome[ICD10: G25.81] Lita BARAKAT [facility] CPT-4: 55327 07/06/2016 ([id number]) OFFICE/OUTPATIENT VISIT EST Diagnosis: Chest pain, unspecified[ICD10: R07.9] Diagnosis: Dyspnea, unspecified[ICD10: R06.00] 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 CPT-4: 38418 06/13/2016 ([id number]) OFFICE/OUTPATIENT VISIT EST Diagnosis: Chest pain, unspecified[ICD10: R07.9] Diagnosis: Other forms of dyspnea[ICD10: R06.09] Diagnosis: Shortness of breath[ICD10: R06.02] Diagnosis: Other fatigue[ICD10: R53.83] Magda BARAKAT [facility] CPT-4: 50439 06/01/2016 ([id number]) OFFICE/OUTPATIENT VISIT EST Diagnosis: Unspecified hearing loss, left ear[ICD10: H91.92] Diagnosis: Other specified disorders of Eustachian tube, left ear[ICD10: H69.82] 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] Lita CRAWFORD DonovanFerdinand YUVAL [facility] CPT - 4: 64001 03/13/2016 ([id number]) OFFICE/OUTPATIENT VISIT EST Diagnosis: Type 2 diabetes mellitus with hyperglycemia[ICD10: E11.65] Diagnosis: Hyperlipidemia, unspecified[ICD10: E78.5] Diagnosis: Essential (primary) hypertension[ICD10: I10] Diagnosis: Chronic obstructive pulmonary disease, unspecified[ICD10: J44.9] Diagnosis: Testicular hypofunction[ICD10: E29.1] Diagnosis: Male erectile dysfunction, unspecified[ICD10: N52.9] Diagnosis: Anemia, unspecified[ICD10: D64.9] Lita Giannibetty Segura Ashley BARAKAT [facility] CPT-4: 23638 03/06/2016 ([id number]) OFFICE/OUTPATIENT VISIT EST Diagnosis: Type 2 diabetes mellitus with hyperglycemia[ICD10: E11.65] Diagnosis: Hyperlipidemia, unspecified[ICD10: E78.5] Diagnosis: Chronic obstructive pulmonary disease, unspecified[ICD10: J44.9] Diagnosis: Male erectile dysfunction, unspecified[ICD10: N52.9] Lita CRAWFORD Ashley BARAKAT [facility] CPT-4: 12065 03/02/2016 ([id number]) OFFICE/OUTPATIENT VISIT EST Diagnosis: Pain in right foot[ICD10: M79.671] Magda GONZALES Ashley BARAKAT [facility] CPT-4: 88751 02/14/2016 OFFICE/OUTPATIENT VISIT EST Diagnosis: Generalized anxiety disorder[ICD10: F41.1] Lita CRAWFORD DonovanFerdinand YUVAL [facility] CPT-4: 36641 01/31/2016 ([id number]) OFFICE/OUTPATIENT VISIT EST Diagnosis: Generalized anxiety disorder[ICD10: F41.1] Lita BARAKAT [employer] [facility] CPT-4: 66263 12/30/2015 ([id number]) OFFICE/OUTPATIENT VISIT EST Diagnosis: Localized swelling, mass and lump, neck[ICD10: R22.1] Lita BARAKAT DO [facility] CPT-4: 96421 12/16/2015 OFFICE/OUTPATIENT VISIT EST Diagnosis: Localized enlarged lymph nodes[ICD10: R59.0] Diagnosis: Otalgia, left ear[ICD10: H92.02] Stephanie BARAKAT DO [facility] CPT-4: 93170 12/06/2015 OFFICE/OUTPATIENT VISIT EST Diagnosis: Localized enlarged lymph nodes[ICD10: R59.0] Diagnosis: Squamous cell carcinoma of skin, unspecified[ICD10: C44.92] Diagnosis: Actinic keratosis[ICD10: L57.0] Stephanie BARAKAT [employer] [facility] CPT-4: 49423 11/15/2015 OFFICE/OUTPATIENT VISIT EST Diagnosis: Cellulitis of left lower limb[ICD10: L03.116] Diagnosis: Encounter for examination and observation for other specified reasons[ICD10: Z04.8] Diagnosis: Chronic obstructive pulmonary disease, unspecified[ICD10: J44.9] Stephanie BARAKAT [employer] [facility] CPT-4: 83925 07/22/2015 OFFICE/OUTPATIENT VISIT EST Diagnosis: Other specified joint disorders, left knee[ICD10: M25.862] Diagnosis: Cellulitis of left lower limb[ICD10: L03.116] Diagnosis: Other fatigue[ICD10: R53.83] Diagnosis: Hyperlipidemia, unspecified[ICD10: E78.5] Stephanie BARAKAT [employer] [facility] CPT-4: 77788 07/01/2015 OFFICE/OUTPATIENT VISIT EST Diagnosis: Pain in left knee[ICD10: M25.562] Diagnosis: Cellulitis of left lower limb[ICD10: L03.116] Diagnosis: Other specified joint disorders, left knee[ICD10: M25.862] Stephanie BARAKAT DO [facility] CPT-4: 88270 06/28/2015 OFFICE/OUTPATIENT VISIT EST Diagnosis: PREPATELLAR BURSITIS[ICD9: 726.65] Diagnosis: Cellulitis of knee, left[ICD9: 682.6] Stephanie BARAKAT DO [facility] CPT-4: 78341 06/09/2015 ([id number]) OFFICE/OUTPATIENT VISIT EST Diagnosis: PREPATELLAR BURSITIS[ICD9: 726.65] Diagnosis: Cellulitis of knee, left[ICD9: 682.6] Lita BARAKAT DO [facility] CPT-4: 60096 06/07/2015 OFFICE/OUTPATIENT VISIT EST Diagnosis: Cellulitis of knee, left[ICD9: 682.6] Stephanie BARAKAT DO [facility] CPT-4: 98794 06/03/2015 ([id number]) OFFICE/OUTPATIENT VISIT EST Diagnosis: DM W/O COMPLICATION TYPE II, UNCONTROLLED[ICD9: 250.02] Diagnosis: COPD[ICD9: 496] Lita BARAKAT [facility] CPT- 4: 69195 06/01/2015 ([id number]) OFFICE/OUTPATIENT VISIT EST Diagnosis: COPD[ICD9: 496] Diagnosis: DYSPNEA[ICD9: 786.09] Diagnosis: DM W/O COMPLICATION TYPE II, UNCONTROLLED[ICD9: 250.02] Diagnosis: Actinic keratosis[ICD9: 702.0] Lita BARAKAT [facility] CPT-4: 36487 02/25/2015 ([id number]) OFFICE/OUTPATIENT VISIT EST Diagnosis: ASTHMA NOS[ICD9: 493.90] Diagnosis: COPD[ICD9: 496] Diagnosis: DM W/O COMPLICATION TYPE II, UNCONTROLLED[ICD9: 250.02] Lita BARAKAT DO [facility] CPT-4: 95451 10/27/2014 OFFICE/OUTPATIENT VISIT EST Diagnosis: DYSPNEA[ICD9: 786.09] Diagnosis: COPD[ICD9: 496] Lita Giannielvabrii BARAKAT [facility] CPT- 4: 75938 10/06/2014 ([id number]) OFFICE/OUTPATIENT VISIT EST Diagnosis: PNEUMONIA, ORGANISM[ICD9: 486] Diagnosis: COPD[ICD9: 496] Diagnosis: DYSPNEA[ICD9: 786.09] Lita BARAKAT DO [facility] CPT-4: 92139 09/21/2014 OFFICE/OUTPATIENT VISIT EST Diagnosis: PNEUMONIA, ORGANISM[ICD9: 486] Diagnosis: DYSPNEA[ICD9: 786.09] Diagnosis: COUGH[ICD9: 786.2] Stephanie BARAKAT DO [facility] CPT-4: 72646 09/08/2014 OFFICE/OUTPATIENT VISIT EST Diagnosis: COPD with exacerbation[ICD9: 491.21] Diagnosis: COUGH[ICD9: 786.2] Diagnosis: DYSPNEA[ICD9: 786.09] Stephanie BARAKAT DO [facility] CPT-4: 22128 09/02/2014 ([id number]) OFFICE/OUTPATIENT VISIT EST Diagnosis: DM W/O COMPLICATION TYPE II, UNCONTROLLED[ICD9: 250.02] Lita BARAKAT [facility] CPT-4: 75476 08/27/2014 ([id number]) OFFICE/OUTPATIENT VISIT EST Diagnosis: DM W/O COMPLICATION TYPE II, UNCONTROLLED[ICD9: 250.02] Diagnosis: HYPERLIPIDEMIA NEC/NOS[ICD9: 272.4] Diagnosis: HYPERTENSION[ICD9: 401.9] Diagnosis: COPD[ICD9: 496] Diagnosis: FLU VACCINE[ICD10: Z23] Lita PABLO [facility] CPT-4: 57954 08/05/2014 ([id number]) OFFICE/OUTPATIENT VISIT EST Diagnosis: COPD[ICD9: 496] Diagnosis: Lumbar degenerative disc disease[ICD9: 722.52] Lita BARAKAT DO [facility] CPT-4: 91070 05/05/2014 OFFICE/OUTPATIENT VISIT EST Diagnosis: DYSPNEA[ICD9: 786.09] Diagnosis: COPD[ICD9: 496] Lita BARAKAT [facility] CPT- 4: 23367 03/24/2014 ([id number]) OFFICE/OUTPATIENT VISIT EST Diagnosis: COPD[ICD9: 496] Diagnosis: DYSPNEA[ICD9: 786.09] [facility]: 80724 03/10/2014 OFFICE/OUTPATIENT VISIT EST Diagnosis: Subacromial bursitis[ICD9: 726.19] Diagnosis: Chronic low back pain[ICD9: 724.2] Diagnosis: Lumbar degenerative disc disease[ICD9: 722.52] [facility]erdinand [facility]: 52746 12/16/2013 ([id number]) OFFICE/OUTPATIENT VISIT EST Diagnosis: PHARYNGITIS, ACUTE[ICD9: 462] Diagnosis: COPD[ICD9: 496] Lita ALYLINE DonovanFerdinand [facility] CPT- [facility]: 71063 10/09/2013 OFFICE/OUTPATIENT VISIT EST Diagnosis: COPD[ICD9: 496] Diagnosis: Acute exacerbation of chronic obstructive pulmonary disease (COPD)[ICD9: 491.21] Ruchi Buchanan LITA ManFerdinand [facility] CPT[facility]: 11371 09/18/2013 ([id number]) OFFICE/OUTPATIENT VISIT EST Diagnosis: PNEUMONIA, ORGANISM[ICD9: 486] Diagnosis: DM W/O COMPLICATION TYPE II[ICD9: 250.00] Lita [facility]YLINE [facility] C[facility]: 60515 08/13/2013 ([id number]) OFFICE/OUTPATIENT VISIT EST Diagnosis: DM W/O COMPLICATION TYPE II, UNCONTROLLED[ICD9: 250.02] Diagnosis: HYPERLIPIDEMIA NEC/NOS[ICD9: 272.4] Diagnosis: HYPERTENSION[ICD9: 401.9] Diagnosis: DYSPNEA[ICD9: 786.09] Diagnosis: Family history of CABG[ICD9: V17.49] [facility]ita [facility]Ferdinand [facility] CPT[facility]: 06074 07/16/2013 ([id number]) OFFICE/OUTPATIENT VISIT EST Diagnosis: DM W/O COMPLICATION TYPE II, UNCONTROLLED[ICD9: 250.02] Diagnosis: HYPERLIPIDEMIA NEC/NOS[ICD9: 272.4] Diagnosis: HYPERTENSION[ICD9: 401.9] Lita [facility]zbrii [facility]: 26661 06/25/2013 OFFICE/OUTPATIENT VISIT EST Diagnosis: COUGH[ICD9: 786.2] Diagnosis: COPD[ICD9: 496] [facility]PT[facility]: 06948 04/09/2013 ([id number]) OFFICE/OUTPATIENT VISIT EST Diagnosis: Muscle spasm[ICD9: 728.85] Diagnosis: ARTHRALGIA-MULTIPLE SITES[ICD9: 719.49] Lita Yuval MENAJESSICA Ashley [facility]PT-[facility]: 64328 02/11/2013 OFFICE/OUTPATIENT VISIT EST Diagnosis: COPD with exacerbation[ICD9: 491.21] Diagnosis: BRONCHITIS, ACUTE[ICD9: 466.0] Ruchi Buchanan LITA [facility]PT[facility]: 26529 01/31/2013 OFFICE/OUTPATIENT VISIT EST Diagnosis: COUGH[ICD9: 786.2] Diagnosis: PHARYNGITIS, ACUTE[ICD9: 462] Diagnosis: SINUSITIS, ACUTE[ICD9: 461.9] [facility]PT[facility]: 71421 01/20/2013 OFFICE/OUTPATIENT VISIT EST Diagnosis: DIZZINESS/VERTIGO[ICD9: 780.4] [facility]: 82179 12/19/2012 OFFICE/OUTPATIENT VISIT EST Diagnosis: Skin lesion of left arm[ICD9: 709.9] Diagnosis: Otitis externa[ICD9: 380.10] Diagnosis: PHARYNGITIS, ACUTE[ICD9: 462] Lita Yuval ALYLINE Ashley [facility]: 61898 10/21/2012 ([id number]) OFFICE/OUTPATIENT VISIT EST Diagnosis: DM W/O COMPLICATION TYPE II, UNCONTROLLED[ICD9: 250.02] Diagnosis: HYPERLIPIDEMIA NEC/NOS[ICD9: 272.4] Diagnosis: HYPERTENSION[ICD9: 401.9] [facility]ita [facility]val [facility]PT[facility]: 05181 09/19/2012 ([id number]) OFFICE/OUTPATIENT VISIT EST Diagnosis: DM W/O COMPLICATION TYPE II, UNCONTROLLED[ICD9: 250.02] Diagnosis: HYPERLIPIDEMIA NEC/NOS[ICD9: 272.4] Diagnosis: COPD[ICD9: 496] Lita BARAKAT DO [facility] CPT- 4: 42822 09/18/2012 ([id number]) OFFICE/OUTPATIENT VISIT EST Diagnosis: BRONCHITIS, ACUTE[ICD9: 466.0] Diagnosis: SINUSITIS, ACUTE[ICD9: 461.9] Lita BARAKAT DO [facility] CPT-4: 79504 08/28/2012 ([id number]) OFFICE/OUTPATIENT VISIT EST Diagnosis: COPD[ICD9: 496] Diagnosis: DYSPNEA[ICD9: 786.09] Diagnosis: VAC STREP PNEUMONIAE-FLU (Medicare)[ICD9: V06.6] Lita BARAKAT DO [facility] CPT-4: 34948 07/10/2012 ([id number]) OFFICE/OUTPATIENT VISIT EST Diagnosis: DM W/O COMPLICATION TYPE II, UNCONTROLLED[ICD9: 250.02] Diagnosis: HYPERTENSION[ICD9: 401.9] Diagnosis: HYPERLIPIDEMIA NEC/NOS[ICD9: 272.4] Diagnosis: DIZZINESS/VERTIGO[ICD9: 780.4] Lita BARAKAT [employer] [facility] CPT-4: 96188 05/09/2012 ([id number]) OFFICE/OUTPATIENT VISIT EST Diagnosis: DM W/O COMPLICATION TYPE II, UNCONTROLLED[ICD9: 250.02] Diagnosis: HYPERLIPIDEMIA NEC/NOS[ICD9: 272.4] Diagnosis: HYPERTENSION[ICD9: 401.9] Diagnosis: MALAISE AND FATIGUE[ICD9: 780.79] Lita BARAKAT [employer] [facility] CPT-4: 34592 05/06/2012 OFFICE/OUTPATIENT VISIT EST Diagnosis: COUGH[ICD9: 786.2] Diagnosis: SINUSITIS, ACUTE[ICD9: 461.9] Diagnosis: PHARYNGITIS, ACUTE[ICD9: 462] Lita BARAKAT [employer] [facility] CPT-4: 37634 10/02/2011 OFFICE/OUTPATIENT VISIT EST Diagnosis: DM W/O COMPLICATION TYPE II, UNCONTROLLED[ICD9: 250.02] Diagnosis: HYPERLIPIDEMIA NEC/NOS[ICD9: 272.4] Diagnosis: HYPERTENSION[ICD9: 401.9] Diagnosis: COPD[ICD9: 496] Lita [facility] CPT- 4: 20651 08/07/2011 OFFICE/OUTPATIENT VISIT EST Lita [facility] CPT- 4: 80599 04/03/2011 ([id number]) OFFICE/OUTPATIENT VISIT EST Lita PALACIOS SFerdinand [facility] CPT-4: 28751 01/18/2011 ([id number]) OFFICE/OUTPATIENT VISIT EST Lita PALACIOS SFerdinand [facility] CPT-4: 75642 12/19/2010 ([id number]) OFFICE/OUTPATIENT VISIT, EST Lita HOLMAN SFerdinand [facility] CPT-4: 82046 04/05/2010 ([id number]) OFFICE/OUTPATIENT VISIT, EST Lita HOLMAN SFerdinand [facility] CPT-4: 25569 01/13/2010 ([id number]) OFFICE/OUTPATIENT VISIT, EST Lita HOLMAN SFerdinand [facility] CPT-4: 68948 12/23/2009 ([id number]) OFFICE/OUTPATIENT VISIT, EST [facility]ita [facility] CPT-4: 35297 12/22/2009 ([id number]) OFFICE/OUTPATIENT VISIT, EST Lita HOLMAN SFerdinand [facility] CPT-4: 16005 12/13/2009 Plan of Care Planned Activity Notes Codes Status Date Visit Diagnosis Plan: Noncompliance with diabetes roslyn tment Discussion: Increase levemir to 15u sc daily and call in 1 week with BS readings ICD-9 : V15.81 ICD-10 : Z91.19 12/22/2019 Visit Diagnosis Plan: Pain in right knee Discussion: C ontinue Hydrocodone q HS Add Baclofen 10mg q HS Call in few days on how doing ICD-9 : 719.46 ICD-10 : M25.561 12/22/2019 Patient Education: baclofen- [employer] Coupon [id number] [email or web address].[employer]/samplemd/resources/getResource/61/jf3ni316-[email or web address] Completed 12/22/2019 Visit Diagnosis Plan: Basal cell carcinoma, face Discu ssion: See Dr. Swanson for excision ICD-9 : 173.31 ICD-10 : C44.310 11/12/2019 Visit Diagnosis Plan: Chronic respiratory failure with hypercapnia Discussion: Patient not wearing oxygen but when he does wear it he has been at 6L from his last exacerbation so instructed him to go back down to 3L Will see Dr. Benjamin because he has not liked what Dr. Chacon said about his breathing and need for ventilatory assisted pressure support but that is what Dr. Benjamin had recommended last time he saw him as well I will see him back after he sees Dr. Benjamin ICD-9 : 518.83 ICD-10 : J96.12 11/12/2019 Visit Diagnosis Plan: Chronic airway obstruction, not elsewhere classified Discussion: Patient has been using Ventolin routinely and symbicort as a rescue--explained to him that the symbicort is his maintenance and the ventolin is his rescue ICD-9 : 496 ICD-10 : J44.9 11/12/2019 Appointment: Lita Barakat WPtel: [address] [place], [place] [phone] [place] ACUTE ILLNESS 11/12/2019 Care Plan: Referral Order SNOMED-CT : 30 [id number] Pending 11/12/2019 Care Plan: Referral Order SNOMED-CT : 30 [id number] Pending 11/12/2019 Visit Diagnosis Plan: Chronic obstructive pulmonary di sease, unspecified Discussion: Start Pulmonary Rehab Reviewed results of CT of chest ordered by pulmonology Follow Up: 3 months ICD-9 : 496 ICD-10 : J44.9 09/11/2019 Visit Diagnosis Plan: Right thyroid nodule Discussion: Check thyroid US ICD-9 : 241.0 ICD-10 : E04.1 09/11/2019 Appointment: Lita Barakat WPtel: [id number] [facility] 09/11/2019 Care Plan: US EXAM OF HEAD AND NECK LOIN C : 75074-9 Pending 09/11/2019 Visit Diagnosis Plan: Chronic bronchitis Discussion: A ugmentin for 10 days ICD-9 : 491.9 ICD-10 : J42 08/07/2019 Appointment: Lita Barakat WPtel: [facility] ACUTE ILLNESS 08/07/2019 Visit Diagnosis Plan: Chronic [...] him that overuse of symbicort can cause fpc damage and the albuterol is to be used every 4 hours as needed. call office later this week with worsening or no improvement ICD-9 : 491.21 ICD-10 : J44.1 07/14/2019 Appointment: Autumn Oneil [address] [place] [address] ACUTE ILLNESS 07/14/2019 Visit Diagnosis Plan: Primary [...] : K31.89 07/01/2019 Appointment: Lita Barakat WPtel: [facility] FOLLOW UP 07/01/2019 Care Plan: CT ABDOMEN W/O DYE LOINC : 36 103-0 Pending 07/01/2019 Care Plan: Referral Order SNOMED-CT : 30 [id number] Pending 07/01/2019 Visit Diagnosis Plan: Epigastric pain [...] 783.21 ICD-10 : R63.4 06/24/2019 Appointment: [facility] aBrakat [facility]el[facility] [address] [facility] [id number] ACUTE ILLNESS 06/24/2019 Patient Education: Seroquel- [employer] Coupon [id number] [email or web address]/resources/getResource/[email or web address] Completed 06/24/2019 Patient Education: ondansetron HCl- [employer] Coupon [id number] [email or web address]/resources/getResource/[email or web address]-[email or web address] Completed 06/24/2019 Care Plan: US EXAM ABDOM COMPLETE LOINC : 62441-7 Pending 06/24/2019 Visit Diagnosis Plan: Diplopia Discussion: [...] 496 ICD-10 : J44.9 06/17/2019 Appointment: Lita Barakat WPtel: [address] [place], [place] [phone] [place] FOLLOW UP 06/17/2019 Appointment: Lita Barakat WPtel: [address] [place], [place] [phone] [place] INJECTION 06/10/2019 Appointment: Lita Barakat WPtel: [address] [place], [place] [phone] [place] INJECTION 06/02/2019 Appointment: Lita Barakat WPtel: [address] [place], [place] [phone] [place] INJECTION 05/27/2019 Appointment: Lita Barakat WPtel: [address] [place], [place] [phone] [place] INJECTION 05/12/2019 Visit Diagnosis Plan: Vitamin [...] ICD-10 : G25.81 05/08/2019 Visit Diagnosis Plan: Anemia, unspecified Discussion: Check CBC, iron, Ferritin, B12 ICD-9 : 285.9 ICD-10 : D64.9 05/08/2019 Visit Diagnosis Plan: Primary insomnia Discussion: Nathalie segura sent out numerous sleeping meds but has stated in past did not work ICD-9 : 780.52 ICD-10 : F51.01 05/08/2019 Appointment: Lita Barakat WPtel: [address] [place], [place] [phone] [place] FOLLOW UP 05/08/2019 Visit Diagnosis Plan: Pain in right knee Discussion: S top tramadol and tylenol q HS Trial of Hydrocodone 10/325mg po q HS Recheck 1month ICD-9 : 719.46 ICD-10 : M25.561 04/07/2019 Appointment: Lita Barakat WPtel: [address] [id number] Hospital Follow Up 04/07/2019 Visit Diagnosis Plan: [...] ICD-10 : F41.1 03/24/2019 Appointment: Autumn Oneil [address] [id number] 03/24/2019 Patient Education: hydroxyzine HCl- [employer]imize[employer] Coupon [id number] Completed 03/24/2019 Patient Education: pantoprazole- [employer] Coupon [id number] Completed 03/24/2019 Visit Diagnosis Plan: Chronic obstructiv e pulmonary disease with (acute) exacerbation Discussion: 90 mg solumedrol given in of fice. patient's portable oxygen tank was empty. [id number] patient on importance of monitoring oxygen tank [...] ICD-10 : R42 03/21/2019 Appointment: Autumn Oneil [address] [place] [address] ACUTE ILLNESS 03/21/2019 Patient Education: ipratropium-albuterol- [employer] C taj [id number] https://www.Myla.MobilePeak/samplemd/resources/getResource/61/i9mz76a1-[email or web address]-92 Completed 03/21/2019 Visit Diagnosis Plan: Chronic obstructiv e pulmonary disease with (acute) exacerbation Discussion: Solumedrol now Use SVNs with duoneb at least q4hrs Patient is supposed to be on continuous oxygen but not wearing ICD-9 : 491.21 ICD-10 : J44.1 03/13/2019 Visit Diagnosis Plan: Candidal stomatitis Discussion: Diflucan and Nystatin susp ICD-9 : 112.0 ICD-10 : B37.0 03/13/2019 Appointment: Lita Barakat WPtel: [facility] [address] ACUTE ILLNESS 03/13/2019 Patient Education: losartan- [employer] Coupon [id number] Completed 03/13/2019 Patient Education: nystatin- [employer] Coupon [id number] Completed 03/13/2019 Patient Education: fluconazole- [employer] Coupon [id number] Completed 03/13/2019 Visit Diagnosis Plan: Chronic obstructiv [...] : G25.81 03/10/2019 Appointment: Lita Barakat WPtel: [address] [place], [place] [phone] ACUTE ILLNESS 03/10/2019 Visit Diagnosis Plan: Restless legs syndrome Discussio n: Stop requip Increase sinemet to TID Add children's chewable MV with iron BID Add magnesium oxide 400mg daily Add Lyrica 75mg po q HS Stop trazadone Recheck 3 weeks Follow Up: 3 weeks ICD-9 : 333.94 ICD-10 : G25.81 02/26/2019 Appointment: Lita Barakat WPtel: [address] [place], [place] [phone] ACUTE ILLNESS 02/26/2019 Visit Diagnosis Plan: Primary insomnia Discussion: Tri al of doxepin 10-20mg po q HS prn sleep ICD-9 : 780.52 ICD-10 : F51.01 02/13/2019 Visit Diagnosis Plan: Chronic obstructive pulmonary di sease, unspecified Discussion: Stable Discussed trip to [place]--will get oxygen setup through [facility] ICD-9 : 496 ICD-10 : J44.9 02/13/2019 Appointment: Lita Barakat WPtel: [address] [place], [place] [phone] FOLLOW UP 02/13/2019 Patient Education: doxepin- [employer] Coupon [id number] https://www.Myla.MobilePeak/samplemd/resources/getResource/61/75f2e86o-92ey-916w-2g Completed 02/13/2019 Appointment: Lita Barakat WPtel: [address] [place], [place] [phone] CANCELED 01/20/2019 Visit Diagnosis Plan: Chronic obstructive pulmonary di sease, unspecified Discussion: Stable on oxygen Given Symbicort samples Follow Up: 1 months ICD-9 : 496 ICD-10 : J44.9 01/14/2019 Appointment: Lita Barakat WPtel: [address] [place], [place] [phone] Hospital Follow Up 01/14/2019 Visit Diagnosis Plan: [...] : J96.11 12/25/2018 Appointment: Lita Barakat WPtel: [address] [facility] Hospital Follow Up 12/25/2018 Appointment: Lita Barakat WPtel: [address] [facility] CANCELED 12/23/2018 Appointment: Ines Banerjee [address] [place], [place] [phone] CANCELED 12/20/2018 Visit Diagnosis Plan: Acute recurrent [...] ICD-10 : I10 12/09/2018 Appointment: Ines Banerjee [address] [place], [place] [address] LAB 12/09/2018 Patient Education: cefdinir- [employer] Coupon [id number] https://www.Myla.MobilePeak/samplemd/resources/getResource/61/b9588u1f-97pp-9371-13 Completed 12/09/2018 Visit Diagnosis Plan: Candidal stomatitis Discussion: Diflucan for 5 days Hold atorvastatin while taking ICD-9 : 112.0 ICD-10 : B37.0 12/05/2018 Appointment: Lita Barakat WPtel: [address] [place], [place] [phone] ACUTE ILLNESS 12/05/2018 Patient Education: fluconazole- [employer] Coupon [id number] https://www.Bluespec/Myla/resources/getResource/61/6i497w63-3ze7-46m9-41 Completed 12/05/2018 Appointment: Lita Barakat WPtel: [address] [place], [place] [id number] NO SHOW 11/11/2018 Visit Plan: Saline nasal [...] : J01.91 10/23/2018 Appointment: Lita Barakat WPtel: [address] [place], [place] [phone] ACUTE ILLNESS 10/23/2018 Patient Education: prednisone- [employer] Coupon [id number] https://www.Bluespec/Myla/resources/getResource/61/zq2dk229-dllm-1247-47 Completed 10/23/2018 Care Plan: A1C HPLC LOINC : 03655-4 Pending 09/10/2018 Care Plan: COMPREHEN METABOLIC PANEL [place] : 74665-8 Pending 09/10/2018 Care Plan: CBC Pending 09/10/2018 [...] : G25.81 08/21/2018 Appointment: Lita Barakat WPtel: [address] [place] [address] ACUTE ILLNESS 08/21/2018 Care Plan: Referral Order SNOMED-CT : 30 [id number] Pending 08/21/2018 Visit Diagnosis Plan: Chronic obstructiv [...] : G25.81 08/07/2018 Appointment: Lita Barakat WPtel: [address] [place] [address] LM FOLLOW UP 08/07/2018 Appointment: Lita Barakat WPtel: [address] [place] [address] 07/18/18 1210---see note in chart (km) CANCELED 07/18/2018 Visit Diagnosis Plan: Chronic obstructiv e pulmonary disease with acute lower respiratory infection Discussion: Solumedrol 125mg IM Change t o trelagy 1 inhalation daily Use SVNs with albuterol q4hrs To ER this weekend if worsens Monitor weight/swelling ICD-9 : 496 ICD-10 : J44.0 05/23/2018 Appointment: Lita Barakat WPtel: [address] [place] [address] ACUTE ILLNESS 05/23/2018 Patient Education: Patient Medication Summary Completed 05/23/2018 Visit Diagnosis Plan: Candidal stomatitis Discussion: Diflucan for 7 more days--hold atrovastatin while taking ICD-9 : 112.0 ICD-10 : B37.0 05/02/2018 Appointment: Lita Barakat WPtel: [address] [id number] FOLLOW UP 05/02/2018 Patient Education: Patient Medication [...] ICD-10 : J44.0 04/29/2018 Appointment: Autumn Oneil [address] [place] [address] ACUTE ILLNESS 04/29/2018 Patient Education: Patient Medication [...] 496 ICD-10 : J44.0 04/22/2018 Appointment: Lita Barakat WPtel: [address] [place], [place] [address] Hospital Follow Up 04/22/2018 Patient Education: Patient Medication Summary Completed 04/22/2018 Appointment: Lita Barakat WPtel: [facility] 04/09/18 1640---see message in chart from today [...] : M17.11 01/28/2018 Appointment: Lita Barakat WPtel: [facility] [facility] 01/28/2018 Patient Education: Patient Medication Summary Completed 01/28/2018 Care Plan: Referral Order SNOMED-CT : 30 5651791 Pending 01/28/2018 Care Plan: Referral Order SNOMED-CT : 30 5052801 Pending 01/28/2018 Visit Diagnosis Plan: Functional dyspepsia Discussion: Protonix Call in 1 week on how doing ICD-9 : 536.8 ICD-10 : K30 01/23/2018 Visit Diagnosis Plan: Pain in right knee Discussion: T opical voltaren gel QID ICD-9 : 719.46 ICD-10 : M25.561 01/23/2018 Appointment: Lita Barakat WPtel: [facility] [address] ACUTE ILLNESS 01/23/2018 Patient Education: Patient Medication [...] N39.0 01/02/2018 Appointment: Lita Barakat WPtel: [address] ACUTE ILLNESS 01/02/2018 Patient Education: Patient Medication [...] ICD-10 : J44.1 12/28/2017 Appointment: Autumn Oneil [address] [place] [address] Consult 12/28/2017 Patient Education: Patient Medication Summary [...] : J20.9 12/21/2017 Appointment: Autumn Oneil 504 [facility] ACUTE ILLNESS 12/21/2017 Patient Education: Patient Medication Summary Completed 12/21/2017 Care Plan: X-RAY EXAM OF KNEE 1 OR 2 right [place] NC : [address]-0 Pending 12/18/2017 Visit Diagnosis Plan: Pain in [...] ICD-10 : J44.0 12/17/2017 Appointment: Autumn Oneil [address] [place], [place] [phone] ACUTE ILLNESS 12/17/2017 Patient Education: Patient Medication Summary Completed 12/17/2017 Visit Diagnosis Plan: Unilateral primary osteoarthriti s, right knee Discussion: Right knee injection as above Warned of elevated BS after injection ICD-9 : 715.96 ICD-10 : M17.11 12/11/2017 Appointment: Lita Barakat WPtel: [facility] [facility] [facility] 12/11/2017 Patient Education: Patient Medication Summary Completed 12/11/2017 Visit Diagnosis Plan: Actinic keratosis Discussion: Cr yotherapy as above If persists then will need excision by Dr. Swanson ICD-9 : 702.0 ICD-10 : L57.0 11/07/2017 Appointment: Lita Barakat WPtel: [address] [place] [address] ACUTE ILLNESS 11/07/2017 Patient Education: Patient Medication [...] : S61.411S 10/17/2017 Appointment: Lita Barakat WPtel: [address] [place] [address] ER Follow UP 10/17/2017 Patient Education: Patient Medication Summary Completed 10/17/2017 Appointment: Lita Barakat WPtel: [address] [place] [address] [place] Consult 08/15/2017 Visit Diagnosis Plan: Chronic obstructiv e pulmonary disease with acute lower respiratory infection Discussion: 40 kenalog and 4 dexmethason e given at today's visit. also prednisone for 3 days. instructed to continue with breathing treatments 4 times a day. defers blood work at this time. instructed to call dr. benjamin with complaints today to see if he would like anything different completed. instructed that if symptoms worsen or do not improve, to go to ED. patient verbalized understanding. ICD-9 : 491.22 ICD-10 : J44.0 08/02/2017 Appointment: Autumn Oneil [address] [place] [address] ACUTE ILLNESS 08/02/2017 Patient Education: Patient Medication Summary Completed 08/02/2017 Patient Education: Patient Medication Summary Completed 07/31/2017 Care Plan: CHEST X-RAY 2VW FRONTAL&LATL LOINC : 01029-0 Pending 07/31/2017 Appointment: Lita Barakat WPtel: [address] [place], [place] [phone] [place] INJECTION 07/24/2017 Patient Education: Patient Medication [...] ICD-10 : J44.1 07/02/2017 Appointment: Autumn Oneil [address] [place] [address] ACUTE ILLNESS 07/02/2017 Patient Education: Patient Medication Summary Completed 07/02/2017 Care Plan: CHEST X-RAY 2VW FRONTAL&LATL LOINC : 31726-1 Pending 07/02/2017 Care Plan: MRI LUMBAR SPINE W/O DYE LOIN C : 35592-1 Pending 05/30/2017 Visit Plan: MRI at [facility] [place] codone 5.325 1 po q 4-6 hours prn pain #40 NR and Cyclobenzaprine (ERx) Continue warm packs for pain RTC if no improvement 05/29/2017 Appointment: Ruchi Buchanan WPtel: [address] [place], [place] [phone] ACUTE ILLNESS 05/29/2017 Patient Education: Patient Medication Summary Completed 05/29/2017 Appointment: Lita Barakat WPtel: [address] [place], [place] [phone] [place] CANCELED 05/24/2017 Patient Education: Patient Medication Summary Completed 05/22/2017 Care Plan: X-RAY EXAM L-S SPINE 2/3 VWS LOINC : 98783-2 Pending 05/22/2017 Appointment: Lita Braakat WPtel: [address] [place] [address] US LAB 04/17/2017 Patient Education: Patient Medication Summary Completed 04/17/2017 Referral: Demetrius Benjamin WPtel: [address] [address] [place] Referral Initiated 04/05/2017 Appointment: Lita Barakat WPtel: [address] [place], [place] [phone] 03/30/17 0930---spoke with patient about ointments (km Consult 03/30/2017 Appointment: Lita Barakat WPtel: [address] [place], [place] [phone] 03/29/17 1320---spoke with patient, requip refilled wasn't received at pharmacy so verbally called (km) Consult 03/29/2017 Patient Education: Patient Medication Summary Completed 03/01/2017 Care Plan: CHEST X-RAY 2VW FRONTAL&LATL LOINC : 93360-5 Pending 03/01/2017 Visit Diagnosis Plan: Bursitis of left shoulder Discus yesi: Injection as above ICD-9 : 726.10 ICD-10 : M75.52 02/01/2017 Appointment: Lita Barakat WPtel: [address] [place] [address] 01/31 confirmed ~sl WORK IN 02/01/2017 Patient Education: Patient Medication Summary Completed 02/01/2017 Care Plan: X-RAY EXAM OF SHOULDER LOINC : 82214-8 Pending 01/30/2017 Visit Plan: May take OTC Tylenol/Ibuprof en as directed XRay at [facility] of left shoulder Tramadol 50mg 1 po q 6 hours prn pain called to [facility]. Sedation warning given (no driving, etc) RTC if no improvement 01/29/2017 Appointment: Ruchi Buchanan WPtel: [address] [place] [address] ACUTE ILLNESS 01/29/2017 Appointment: Ruchi Buchanan WPtel: [address] [place] [address] ACUTE ILLNESS 01/29/2017 Patient Education: Patient Medication Summary Completed 01/29/2017 Appointment: Lita Barakat WPtel: [address] [place] [address] [place] Consult 01/10/2017 Appointment: Lita Barakat WPtel: [address] [place] [address] 12/27/2016 Patient Education: Patient Medication Summary Completed [...] : R53.83 12/21/2016 Appointment: Lita Barakat WPtel: [address] [place] [address] ACUTE ILLNESS 12/21/2016 Patient Education: Patient Medication Summary Completed 12/21/2016 Appointment: Lita Barakat WPtel: [address] [place] [address] US CANCELED 12/18/2016 Visit Diagnosis Plan: Restless [...] 285.9 ICD-10 : D64.9 12/14/2016 Appointment: Lita Barakat WPtel: [address] [place] [address] 12/13 confirmed ~sl WORK IN 12/14/2016 Appointment: Lita Barakat WPtel: [address] [place], [place] [address] [place] CANCELED 12/14/2016 Patient Education: Patient Medication Summary Completed 12/14/2016 Appointment: Lita Barakat WPtel: [address] [place] [address] LAB 12/12/2016 Patient Education: Patient Medication Summary Completed 12/12/2016 Appointment: Lita Barakat WPtel: [address] [place] [address] in ER this weekend--called for reports Consult 12/11/2016 Appointment: Lita Barakat WPtel: [facility] [facility] CANCELED 12/04/2016 Visit Diagnosis Plan: Pneumonia, unspecified organism Discussion: Called [facility] to get details on steroid and levaquin [...] ICD-10 : G25.81 11/14/2016 Appointment: [facility] [facility] 11/14/2016 Patient Education: Patient Medication Summary Completed 11/14/2016 Appointment: Lita Barakat WPtel: [address] [place], [place] [phone] [place] RESCHEDULED 11/02/2016 Visit Diagnosis Plan: Candidal stomatitis Discussion: Diflucan and Nystatin Hold atorvastatin while taking diflucan ICD-9 : 112.0 ICD-10 : B37.0 10/31/2016 Appointment: Lita Barakat WPtel: [address] [place] [address] ACUTE ILLNESS 10/31/2016 Patient Education: Patient Medication Summary Completed 10/31/2016 Appointment: Lita Barakat WPtel: [address] [place] [address] US Consult 10/23/2016 Appointment: Lita Barakat WPtel: [address] [place] [address] US CANCELED 10/18/2016 Visit Plan: Rx as above Wear O2 at all t imes as instructed by Dr Chacon Continue breathing treatments Supportive care otherwise reviewed Follow up ingrid if not improving 10/03/2016 Appointment: Lita Barakat WPtel: [address] [place] [address] US CANCELED 10/03/2016 Appointment: Magda Toth [address] [place] [address] ACUTE ILLNESS 10/03/2016 Patient Education: Patient Medication Summary Completed 10/03/2016 Visit Plan: Titrate requip to 1.5mg x 1 week Call if not helpful and will increase to 2mg qHS NO MORE nyquil at bedtime - discussed potential effects of decongestants on heart, oversedating himself, etc Will increase requip, then amitriptyline if needed to desired effect 09/04/2016 Appointment: Magda oTth [address] [place] [address] ACUTE ILLNESS 09/04/2016 Patient Education: Patient Medication Summary Completed 09/04/2016 Visit Plan: Stop requip and try elavil C ryotherapy as above See ENT for removal of right ear lesion 08/22/2016 Appointment: Lita Barakat WPtel: [address] [place], [place] [phone] ACUTE ILLNESS 08/22/2016 Patient Education: Patient Medication Summary Completed 08/22/2016 Visit Plan: Trial of requip 1mg q HS Res tart zoloft Recheck 1month 08/10/2016 Appointment: Lita Barakat WPtel: [address] [place] [address] ACUTE ILLNESS 08/10/2016 Patient Education: Patient Medication Summary Completed 08/10/2016 Visit Plan: Stop HCTZ Flagyl for diarrhe a Hydrate Discussed meds for restless legs Zofran prn Nausea 07/06/2016 Appointment: Lita Barakat WPtel: [address] [place] [address] 07/05 confirmed~ Hospital Follow Up 07/06/2016 Patient Education: Patient Medication Summary Completed 07/06/2016 Visit Plan: Reviewed with Dr Yuval Palacios sidering his recent history, instructed him to go straight to the ER called to notify her so she can meet him there 06/22/2016 Appointment: Magda Toth [address] [place] [address] ACUTE ILLNESS 06/22/2016 Patient Education: Patient Medication Summary Completed 06/22/2016 Visit Plan: Continue current meds Prevna r 13 and High Dose Flu given 06/13/2016 Appointment: Lita Barakat WPtel: [address] [place], [place] [phone] 06/13 confirmed~ WORK IN 06/13/2016 Patient Education: Patient Medication Summary Completed 06/13/2016 Appointment: Lita Barakat WPtel: [address] [place] [address] just went over current medications CANCELED 06/08/2016 Visit Plan: Reviewed POC with Dr Barakat Stat cbc, cmp, d dimer, troponin, bnp, ekg, cxr If any worsening of symptoms while awaiting results, patient instructed to go to ER or call 911 06/01/2016 Appointment: Magda Toth [address] [place], [place] [phone] ACUTE ILLNESS 06/01/2016 Patient Education: Patient Medication Summary Completed 06/01/2016 Referral: José Miguel Swanson WPtel: [address] 04/[address] swanson's office, patient is [...] eval and treatment 04/26/2016 Appointment: Magda Toth [address] [id number] ACUTE ILLNESS 04/26/2016 Patient Education: Patient Medication Summary Completed 04/26/2016 Care Plan: Referral Order SNOMED-CT : 30 [id number] Pending 04/26/2016 Visit Plan: Left ear flushed after conse nt with warm water with peroxide with ear syringe Patient tolerated well Ear exam is wnl following flushing Follow up PRN 04/05/2016 Appointment: Magda Toth 2305 [facility] ACUTE ILLNESS 04/05/2016 Patient Education: Patient Medication Summary Completed 04/05/2016 Visit Plan: Increase Levemir to 25u sc d aily Increase sertraline to 2 full tablets daily--200mg Debrox or cerumenex to bilateral ears q HS for 3 nights then flush or fwup for fushing Check lab in 2mos then fwup 04/03/2016 Appointment: Lita Barakat WPtel: 2[address] [facility] 03/31 78 lm ~sl FOLLOW UP 04/03/2016 Patient Education: Patient Medication Summary Completed 04/03/2016 Visit Plan: Patient informed of correct dosage of levemir and how to administer. Patient verbalizes understanding and will call if any questions/concerns. 10 Units of Levemir given in office SC to right lower abdom en. Patient tolerated well. Site without redness/irritation. 03/13/2016 Appointment: Lita Barakattejan: [address] [place], [place] [phone] SPECIAL 03/13/2016 Patient Education: Patient Medication Summary Completed 03/13/2016 Appointment: Lita Barakat WPtel: [address] [place], [place] [phone] [place] LAB 03/06/2016 Patient Education: Patient Medication Summary Completed 03/06/2016 Visit Plan: Patient saw Dr. Chacon this week and was given prednisone taper for COPD Continue current meds Accuchecks daily Patient will return on Sunday morning for fasting lab incuding CBC, CMP, TSH, free T4, HbA1C, Lipids, Testosterone, PSA 03/02/2016 Appointment: Lita Barakat WPtel: [address] [place], [place] [phone] 03/01 confirmed ~sl FOLLOW UP 03/02/2016 Patient Education: Patient Medication Summary Completed 03/02/2016 Visit Plan: Right bottom of heal about a satya of insert of plantar fascia cleansed with alcohol and betadine and injected with 1cc 1% lidocaine with 1mg Dexamethasone and 10mg kenalog, tolerated well with no complications, neosporin and bandage applie Start Mobadolph and Ambrocio Call in 1 week on how doing 02/17/2016 Appointment: Lita Barakat WPtel: [address] [place], [place] [phone] WORK IN 02/17/2016 Patient Education: Patient Medication Summary Completed 02/17/2016 Visit Plan: Xrays to further evaluate Alvarez spect heel spur(s) Will call with results Has had injections in the past that were helpful Dr Barakat can do them or can refer to podiatry if warranted 02/14/2016 Appointment: Magda Toth [address] [place], [place] [address] ACUTE ILLNESS 02/14/2016 Patient Education: Patient Medication Summary Completed 02/14/2016 Visit Plan: Increase Zoloft to 150mg cooper ly 01/31/2016 Appointment: Lita Barakat WPtel: [address] [place], [place] [phone] 01/26 confirmed `sl FOLLOW UP 01/31/2016 Patient Education: Patient Medication Summary Completed 01/31/2016 Visit Plan: Decrease citalopram to 20mg q AM for 1 week then stop Start zoloft 50mg q HS for 1 week then increase to 100mg q HS 12/30/2015 Appointment: Lita Barakat WPtel: [address] [place], [place] [phone] 12/28 confirmed~sl ACUTE ILLNESS 12/30/2015 Patient Education: Patient Medication Summary Completed 12/30/2015 Visit Plan: Check Neck US 12/16/2015 Appointment: Lita Barakat WPtel: [address] [place], [place] [phone] 12/14 lm ~sl 12/15 confirmed-sp FOLLOW UP 12/16/2015 Patient Education: Patient Medication Summary Completed 12/16/2015 Care Plan: US EXAM OF HEAD AND NECK LOIN C : 27345-6 Ordered 12/16/2015 Appointment: Stephanie Rios WPtel: [address] [place], [place] [phone] 12/09 confirmed-sp 12/12 lm ~sl Patient r kareemurn call and stated he just plain forgot ~sl FOLLOW UP 12/13/2015 Visit Plan: Had changing lesions of fore head and left mastoid area removed earlier today. Follow-up in one week Will proceed with soft tissue ultrasound of neck/ left cervical lymph node if no improvement antibiotics Clindamycin 300mg PO TID 12/06/2015 Appointment: Stephanie Rios WPtel: [address] [place], [place] [address] ACUTE ILLNESS 12/06/2015 Patient Education: Patient Medication Summary Completed 12/06/2015 Referral: Lisbeth Darby WPtel: [facility] [address] [facility] 11/18/15 called luther at [facility] office and confirmed time and date of appointment with patient~sl Initiated 11/18/2015 Visit Plan: Referral to Dermatology for removal of facial skin lesions Cefdinir PO bid Topical Mupirocin to skin lesions bid 11/15/2015 Appointment: Stephanie Rios WPtel: [address] [place], [place] [phone] ACUTE ILLNESS 11/15/2015 Patient Education: Patient Medication Summary Completed 11/15/2015 Visit Plan: Continue current meds Accuch ecks daily Fwup with ophthamology as scheduled Will check lab in 3mos then fwup due to recent meds that will affect blood sugar 10/05/2015 Appointment: Lita Barakat WPtel: [address] [place], [place] [phone] 10/04/15 appt confirmed cn Annual Well Visit 08/2016 Patient Education: Patient Medication Summary Completed 10/05/2015 Visit Plan: Alexis -1 sample box given Return visit in 6 weeks for fasting labs Notify for worsening symptoms such as Increased redness, swelling, pain or drainage of Rt. knee 07/22/2015 Appointment: Stephanie Rios WPtel: [address] [place], [place] [phone] 07/21 vm left cn FOLLOW UP 07/22/2015 Patient Education: Patient Medication Summary Completed 07/22/2015 Visit Plan: Continue to change dressing twice daily and apply Mupirocin Complete Doxycycline as directed. Follow-up for worsening symptoms, such as increased swelling, redness or pain. 07/01/2015 Appointment: Stephanie Rios WPtel: [address] [place], [place] [phone] FOLLOW UP 07/01/2015 Patient Education: Patient Medication Summary Completed 07/01/2015 Visit Plan: Pressure dressing applied to draining wound left knee. Instructed to change dressing twice daily and continue Mupirocin topical Doxycycline PO bid x 10 days Wound culture obtained. Wound tissue sent to pathology Follow-up in 3 days 06/28/2015 Appointment: Stephanie Rios WPtel: [address] [place], [place] [phone] ACUTE ILLNESS 06/28/2015 Patient Education: Patient Medication Summary Completed 06/28/2015 Visit Plan: Complete antibiotics Follow- up for increased tenderness, swelling or drainage. 06/09/2015 Appointment: Stephanie Rios WPtel: [address] [place], [place] [phone] 06/08/15 lm FOLLOW UP 06/09/2015 Patient Education: Patient Medication Summary Completed 06/09/2015 Visit Plan: Apply pressure dressing toda y Continue antibiotics and topical Mupirocin Follow-up in 2 days Bursa drained from open area using pressure--serosanguinous drainage 06/07/2015 Appointment: Stephanie Rios WPtel: [address] [place], [place] [id number] 06/04/15 confirmed with patient FOLLOW UP 0 06/07/2015 Patient Education: Patient Medication Summary Completed 06/07/2015 Visit Plan: Wound culture Lt. knee Apply mupirocin to open wound bid Clindamycin 600 mg PO bid x 10 days Follow-up on Sunday06/03/2015 Appointment: Stephanie Rios WPtel: [address] [place], [place] [phone] ACUTE ILLNESS 06/03/2015 Patient Education: Patient Medication Summary Completed 06/03/2015 Visit Plan: Accuchecks daily Check CMP, HbA1C today Patient is noncompliant with meds and diet but patient says he is doing everything he is supposed to do Wants to try performomist instead of albuterol in SVN 06/01/2015 Appointment: Lita Barakat WPtel: [address] [place], [place] [phone] 05/28 appt confirmed cn FOLLOW UP 06/01/20 Patient Education: Patient Medication Summary Completed 06/01/2015 Visit Plan: Change Breo Ellipta to Advai r 500/50 1 p BID this next month Continue turdoza Use albuterol prn Check CMP, HbA1C today Accuchecks daily Cryotherapy as above 02/25/2015 Appointment: Lita Barakat WPtel: [id number] 02/24 appt confirmed and explained needed payment he said ok FOLLOW UP 02/25/2015 Patient Education: Patient Medication Summary Completed 02/25/2015 Referral: Lopez Chacon [address] [facility] C&D [id number] [place] Will put patient on cancellation list Initiated 12/08/2014 Appointment: Lita Barakat WPtel: [address] [place], [place] [phone] Hospital Follow Up 10/29/2014 Visit Plan: Finish prednisone Continue S VNs with albuterol QID See pulmonology and start Pulmonary rehab Once again discussed taking it easy this winter--that he is high risk for exacerbation 10/27/2014 Appointment: Lita Barakat WPtel: [address] [place] [address] FOLLOW UP 10/27/2014 Patient Education: Patient Medication Summary Completed 10/27/2014 Appointment: Lita Barakat WPtel: [address] [place], [place] [phone] FOLLOW UP 10/26/2014 Appointment: Stephanie Rios WPtel: [address] [place], [place] [phone] WORK IN 10/21/2014 Patient Education: Patient Medication Summary Completed 10/21/2014 Patient Education: Patient Medication Summary Completed 10/19/2014 Visit Plan: Continue oxygen and SVNS wit h duoneb Increase farxiga to 10mg daily Diflucan 100mg daily for 1week 10/06/2014 Appointment: Lita Barakat WPtel: [address] [place], [place] [phone] [facility] appt time to 2:45pm FOLLOW UP 2014 Patient Education: Patient Medication Summary Completed 10/06/2014 Visit Plan: Finish omnicef Continue Breo BID and Turdoza Use SVNS with duoneb at least TID for next 2weeks then go to prn 09/21/2014 Appointment: Lita Barakat WPtel: [address] [place], [place] [phone] [facility] 09/21/2014 Patient Education: Patient Medication Summary Completed 09/21/2014 Patient Education: [facility] - [employer] - Ventolin HFA - 18+ - Dynamic Portal ID Completed 09/21/2014 Appointment: Stephanie Rios WPtel: [address] [place], [place] [phone] Scheduled by 09/07 patient rescheduled to 09/08 with Stephanie. Hospital Follow Up 09/08/2014 Patient Education: Patient Medication Summary Completed 09/08/2014 Appointment: Stephanie Rios WPtel: [address] [place], [place] [id number] FOLLOW UP 09/02/2014 Patient Education: Patient Medication Summary Completed 09/02/2014 Patient Education: [employer] - Antibi otics, Analgesics 18+, Oral Contraceptives F 18+ Completed 09/02/2014 Appointment: Lita Barakat WPtel: [address] [place], [place] [phone] UA 08/27/2014 Patient Education: Patient Medication Summary [...] prn sleep 08/10/2014 Appointment: Lita Barakat WPtel: [address] [place], [place] [phone] Annual Well Visit 08/10/2014 Patient Education: Patient Medication Summary Completed 08/10/2014 Appointment: Lita Barakat WPtel: [address] [place], [place] [phone] LAB 08/05/2014 Patient Education: Patient Medication Summary Completed 08/05/2014 Visit Plan: ECHO results reviewed Contin ue Breo and Turdoza Pt starts PT this afternoon for back--has had one epidural with no help in pain 05/05/2014 Appointment: Lita Barakat WPtel: [address] [place] [address] FOLLOW UP 05/05/2014 Patient Education: Patient Medication Summary Completed 05/05/2014 Visit Plan: Continue Breo and Turdoza Camargo s heart tests scheduled next week Will see surgeon for removal of skin cancer to neck after done with cardiac workup 03/24/2014 Appointment: Lita Barakat WPtel: [address] [place] [address] FOLLOW UP 03/24/2014 Patient Education: Patient Medication Summary Completed 03/24/2014 Visit Plan: Proceed with cardiology eval uation as patient is has numerous risk factors for CAD Change Symbicort to Breo 1p BID and add Turdorza 1p BID Recheck in weeks Check 2-D ECHO and lexiscan 03/10/2014 Appointment: Lita Barakat WPtel: [address] [place] [address] FOLLOW UP 03/10/2014 Patient Education: Patient Medication Summary Completed 03/10/2014 Visit Plan: Shoulder injection as above Back brace to use when doing any lifting for stability 12/16/2013 Appointment: Lita Barakat WPtel: [address] [place] [address] ACUTE ILLNESS 12/16/2013 Patient Education: Patient Medication Summary Completed 12/16/2013 Visit Plan: Continue symbicort and Turdo za Salt water gargles Omnicef 300mg 2 po daily for 1wk Phenergan with codeine 10/09/2013 Appointment: Lita Barakat WPtel: [address] [place], [place] [phone] WORK IN 10/09/2013 Patient Education: Patient Medication Summary Completed 10/09/2013 Appointment: Ruchi Buchanan WPtel: [address] [place], [place] [phone] ACUTE ILLNESS 09/18/2013 Patient Education: Patient Medication Summary Completed 09/18/2013 Visit Plan: Check on repeat CXR Finish a bx Start Tradjenta to replace metformin 08/13/2013 Appointment: Lita Barakat WPtel: [address] [place], [place] [phone] 08/12 Hospital Follow Up 08/13/2013 Patient Education: Patient Medication Summary Completed 08/13/2013 Visit Plan: Admit to hospital 08/06/2013 Appointment: Stephanie Rios WPtel: [address] [place] [address] ACUTE ILLNESS 08/06/2013 Patient Education: Patient Medication Summary Completed 08/06/2013 Visit Plan: Continue current meds Contin ue accuchecks daily Proceed with stress test due to high risk for CAD 07/16/2013 Appointment: Lita Barakat WPtel: [address] [place] [address] FOLLOW UP 07/16/2013 Patient Education: Patient Medication Summary Completed 07/16/2013 Appointment: Lita Barakat WPtel: [address] [place] [address] LAB 06/25/2013 Patient Education: Patient Medication Summary Completed 06/25/2013 Visit Plan: prednisone and azithromycin. Doing CBC and mycoplasma blood draw. Will continue inhaler and albuterol breathing treatments. 04/09/2013 Appointment: Kimberly Villalba WPtel: [address] [place] [address] ACUTE ILLNESS 04/09/2013 Patient Education: Patient Medication Summary Completed 04/09/2013 Appointment: Lita Barakat WPtel: [address] [place], [place] [phone] ACUTE ILLNESS 02/11/2013 Patient Education: Patient Medication Summary Completed 02/11/2013 Appointment: Ruchi Buchanan WPtel: [address] [place] [address] ACUTE ILLNESS 01/31/2013 Patient Education: Patient Medication Summary Completed 01/31/2013 Visit Plan: Cefdinir and medrol dose pac k. Codeine/guiaf cough syrup. Has colonoscopy on Sunday. Pt. is to notify if fever occurs or symptoms worsen. Hydration and rest. 01/20/2013 Appointment: Kimberly Villalba WPtel: [address] [place], [place] [phone] ACUTE ILLNESS 01/20/2013 Patient Education: Patient Medication Summary Completed 01/20/2013 Visit Plan: Scopalamine patch and vestib ular exercises 12/19/2012 Appointment: Lita Barakat WPtel: [address] [place], [place] [phone] ACUTE ILLNESS 12/19/2012 Patient Education: Patient Medication Summary Completed 12/19/2012 Visit Plan: Dr. Swanson consult if no impr ovement in hearing. Pt. reports he will notify if no better in one week. Willam consult for skin lesion. 10/21/2012 Appointment: Kimberly Villalba WPtel: [address] [place] [address] ACUTE ILLNESS 10/21/2012 Patient Education: Patient Medication Summary Completed 10/21/2012 Appointment: Lita Barakat WPtel: [address] [place], [place] [phone] [place] LAB 09/19/2012 Patient Education: Patient Medication Summary Completed 09/19/2012 Visit Plan: Check fasting lab in AM--CMP , Lipids, HbA1C 09/18/2012 Appointment: Lita Barakat WPtel: [address] [place], [place] [phone] FOLLOW UP 09/18/2012 Patient Education: Patient Medication Summary Completed 09/18/2012 Appointment: Lita Barakat WPtel: [address] [place], [place] [phone] appt time scheduled sooner FOLLOW UP 09/05 Visit Plan: Doxycycline and Prednisone I ncrease SVN to QID Add back Symbicort 160/4.5 2 p BID 08/28/2012 Appointment: Lita Barakat WPtel: [address] [place], [place] [phone] [place] FOLLOW UP 08/28/2012 Patient Education: Patient Medication Summary Completed 08/28/2012 Appointment: Lita Barakat WPtel: [address] [place], [place] [phone] Annual Well Visit 07/10/2012 Patient Education: Patient Medication Summary Completed 07/10/2012 Visit Plan: Finish Z-pack Add Nasonex Ad d Meclizine Vestibular exercises Continue current meds and accuchecks Check lab and fwup in 4mos 05/09/2012 Appointment: Lita Barakat WPtel: [address] [place], [place] [phone] [place] number no longer works FOLLOW UP 2 Patient Education: Patient Medication Summary Completed 05/09/2012 Appointment: Lita Barakat WPtel: [address] [place], [place] [phone] [place] LAB 05/06/2012 Patient Education: Patient Medication Summary Completed 05/06/2012 Appointment: Lita Barakat WPtel: [address] [place], [place] [phone] [place] LAB 05/02/2012 Appointment: Lita Barakat WPtel: [address] [place], [place] [phone] [place] INJECTION 02/05/2012 Patient Education: Patient Medication Summary Completed 02/05/2012 Visit Plan: cefdinir. Will focus on rest and fluids. Pt. reports he is using breathing treatments as needed. Pt. will monitor for worsening symptoms or fever. 10/02/2011 Appointment: Kimberly Villalba WPtel: [address] [place], [place] [phone] ACUTE ILLNESS 10/02/2011 Patient Education: Patient Medication Summary Completed 10/02/2011 Appointment: Lita Barakat WPtel: [address] [place], [place] [phone] [place] INJECTION 08/10/2011 Patient Education: Patient Medication Summary Completed 08/10/2011 Visit Plan: Continue current meds Restar t Advair Restart exercise Flu shot given 08/07/2011 Appointment: Lita Barakattel: [address] [place] [address] [place] FOLLOW UP 08/07/2011 Patient Education: Patient Medication Summary Completed 08/07/2011 Appointment: Lita Barakattel: [address] [place], [place] [phone] [place] LAB 07/26/2011 Patient Education: Patient Medication Summary Completed 07/26/2011 Visit Plan: ALEKSANDER Floresetta Continue Metformin but change to BID Add Lantus 25u sc q PM BS readings in 1wk 04/03/2011 Appointment: Lita Barakattel: [address] [place] [address] ACUTE ILLNESS 04/03/2011 Patient Education: Patient Medication Summary Completed 04/03/2011 Appointment: Lita Barakattel: [address] [place] [address] [place] INJECTION 01/19/2011 Patient Education: Patient Medication Summary Completed 01/19/2011 Appointment: Lita Barakattel: [address] [place] [address] ACUTE ILLNESS 01/18/2011 Patient Education: Patient Medication Summary Completed 01/18/2011 Appointment: Lita Barakattel: [address] [place], [place] [phone] [place] INJECTION 12/21/2010 Patient Education: Patient Medication Summary Completed 12/21/2010 Appointment: Lita Barakat WPtel: [address] [place] [address] [place] FOLLOW UP 12/19/2010 Patient Education: Patient Medication Summary Completed 12/19/2010 Appointment: Lita Barakattel: [address] [place], [place] [phone] [place] LAB 12/07/2010 Patient Education: Patient Medication Summary Completed 12/07/2010 Appointment: Kimberly Villalbatel: [address] [place], [place] [phone] ACUTE ILLNESS 04/05/2010 Patient Education: Patient Medication Summary Completed 04/05/2010 Appointment: Lita Barakat WPtel: [address] [place], [place] [phone] [place] WORK IN 03/14/2010 Patient Education: Patient Medication Summary Completed 03/14/2010 Appointment: Lita Barakat WPtel: [address] [place], [place] [phone] [place] LAB 03/02/2010 Visit Plan: HbA1C in 3mos. Continue Accu checks BID alternating times. Switch lexapro to celexa 01/13/2010 Appointment: Lita Barakat WPtel: [address] [place], [place] [phone] FOLLOW UP 01/13/2010 Patient Education: Patient Medication Summary Completed 01/13/2010 Appointment: Lita Barakat WPtel: [address] [place], [place] [phone] [place] FOLLOW UP 01/11/2010 Visit Plan: Pt. will continue the Avalox and Doxycycline regimen as prescribed the previous day. He has been advised to continue inhalers, breathing treatments and oxygen therapy for at least the weekend. Moderate activity without strenuous exercise. The pt. will seek immediate re-eval if his symptoms worsen. 12/23/2009 Appointment: Kimberly Villalba WPtel: [address] [place], [place] [phone] FOLLOW UP 12/23/2009 Patient Education: Patient Medication [...] tomorrow morning. 12/22/2009 Appointment: Kimberly Villalba WPtel: [address] [place] [address] ACUTE ILLNESS 12/22/2009 Patient Education: Patient Medication Summary Completed 12/22/2009 Appointment: Kimberly Villalba WPtel: [address] [place] [address] FOLLOW UP 12/21/2009 Appointment: Lita Barakat WPtel: [address] [place] [address] [place] INJECTION 12/16/2009 Patient Education: Patient Medication Summary Completed 12/16/2009 Appointment: Kimberly Villalba WPtel: [address] [place] [address] ACUTE ILLNESS 12/13/2009 Patient Education: Patient Medication Summary Completed 12/13/2009 Care Plan: X-RAY EXAM OF SHOULDER lt shoulder (pain ra diates across the shoulder) Hand carried orders to [facility] LOINC : 69017-9 Ordered 12/13/2009 Care Plan: X-RAY EXAM THORAC SPINE 2VWS Hand carried order LOINC : 95814-7 Ordered 12/13/2009 Care Plan: X-RAY EXAM RIBS UNI 2 VIEWS Posterior ribs of lt. side Pt. hand carries order to [facility] LOINC : 49613-7 Ordered 12/13/2009 Referral: José Miguel Swanson WPtel: [address] [address] [place] Referral Appointment Requested Referral: José Miguel Swanson WPtel: [address] [address] [place] Referral Appointment Requested Referral: Chandu Quarles WPtel: [address] Quarles for screening colonoscopy. P atient notified that [facility] office will book appt with him Initiated Referral: Santosh Machado WPtel: [address] [id number] [place] Referral Appointment Requested Referral: José Miguel Swanson WPtel: [address] [address] [place] Referral Initiated Referral: Lopez Chacon [address] [facility] C&D [place] [address] [place] Referral Initiated Referral: Demetrius Benjamin WPtel: [address] [address] [place] Referral Appointment Requested Referral: José Miguel Swanson WPtel: [address] [address] [place] Referral Appointment Requested Referral: José Miguel Swanson WPtel: [address] [address] [place] Referral Initiated Instructions Comment . Saline nasal flushes prn. Tylenol/Motr in prn headache. Notify if persists/symptoms worsening. . MRI at [facility] Hydrocodone 5.325 1 po q 4-6 hours prn pain #40 NR and Cyclobenzaprine (ERx) Continue warm packs for pain RTC if no improvement . May take OTC Tylenol/Ibuprofen as dire cted XRay at [facility] of left shoulder Tramadol 50mg 1 po q 6 hours [place]. Sedation warning given (no driving, etc) RTC [...] meds that will affect blood sugar . Alexis -1 sample box given Return visit in [...]
--- OUTSIDE RECORDS SUMMARY | 2019-12-31 00:26 | XMS REPORT | CCD ---
Author Author Leandro Barakat D.O. Organization [facility] Address [address] [place] [address] Phone Care Team Providers Care Video Library Assistant Name Role Phone Lita Barakat D.O., PP Unavailable CCM Unavailable Summary Purpose Interface Exchange Insurance Providers Payer name Policy type / Coverage type Covered alliance party ID Effective Begin Date Effective End Date [employer] MEDICARE Medicare Part B [id number] 2019 Unknown Family history Brother Diagnosis Age At Onset Cancer Unknown Father Diagnosis Age At Onset Heart disease Unknown Mother Diagnosis Age At Onset Heart disease Unknown Social History Social History Element Codes Description Effective Dates Tobacco history SNOMED CT: 7358443 Former smoker quit 15 years ago 08/07/2011 [...] 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.9 06/22/2016 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: [...] unit/mL (3 mL) sub cutaneous pen RxNorm: 481856 10 Unit(s) Subcutaneous every night at bedtime 12/22/2019 N o Stop Date Active baclofen 10 mg tablet RxNorm: 195240 1 Tablet(s) Oral QPM for p ain/spasm 12/22/2019 01/21/2020 Active ipratropium 0.5 mg-albuterol 3 mg (2.5 mg base)/3 mL n ebulization soln RxNorm: 6280641 USE 1 VIAL IN NEBULIZER Q4H (THIS REPLACES ALBUTEROL S OLUTION) 11/27/2019 12/16/2019 Inactive hydrocodone 10 mg-acetaminophen 325 mg tablet RxNorm: 667538 1 Tablet(s) Oral Q4H as needed for pain 11/13/2019 No Stop Date Active Seroquel 50 mg tablet RxNorm: 426620 1 Tablet(s) Oral QPM as ne eded for sleep 10/07/2019 12/21/2019 Inactive ropinirole 4 mg tablet RxNorm: 511440 3 TABLET(S) BY [facility] DAILY AT BEDTIME FOR RESTLESS LEGS 09/29/2019 12/27/2019 Active Generic For:REQU IP 4 MG TABLET 09/29/2019 7:52:42 AM N O T I C E Last quantity doesn't match original quantity ropinirole 4 mg tablet RxNorm: 463982 3 TABLET(S) BY [facility] DAILY AT BEDTIME FOR RESTLESS LEGS 09/26/2019 09/28/2019 Inactive Generic For:REQU IP 4 MG TABLET 09/26/2019 9:08:48 AM N O T I C E Last quantity doesn't match original quantity ipratropium 0.5 mg-albuterol 3 mg (2.5 mg base)/3 mL n ebulization soln RxNorm: 0491618 USE 1 VIAL IN NEBULIZER EVERY FOUR HOURS (THIS REPLACES ALBUTEROL SOLUTION) 09/26/2019 10/15/2019 Inactive Generic For:*DUO NEB 2.5-0.5 MG/3 ML SOLN 09/26/2019 9:08:53 AM hydrocodone 10 mg-acetaminophen 325 mg tablet RxNorm: 853609 1 Tablet(s) Oral Q4H as needed for pain 09/09/2019 09/09/2019 Inactive hydrocodone 10 mg-acetaminophen 325 mg tablet RxNorm: 287765 1 Tablet(s) Oral Q4H as needed for pain 09/09/2019 09/08/2019 Inactive ondansetron HCl 4 mg tablet RxNorm: 972972 1 Tablet(s) Oral QPM for nausea 08/12/2019 10/10/2019 Inactive ipratropium 0.5 mg-albuterol 3 mg (2.5 mg base)/3 mL n ebulization soln RxNorm: 4184578 1 Unit Dose INH Q4H 08/12/2019 09/25/2019 Inactive replaces albuterol solution Augmentin 875 mg-125 mg tablet RxNorm: 983389 1 Tablet(s) Oral two times a day 08/07/2019 08/17/2019 Inactive prednisone 20 mg tablet RxNorm: 757575 1 Tablet(s) Oral QD 08/05/2008/04/2019 Inactive prednisone 20 mg tablet RxNorm: 812587 1 Tablet(s) Oral QD 08/05/2008/06/2019 Inactive Levaquin 500 mg tablet RxNorm: 037840 1 Tablet(s) Oral QD Replaces azithromycin (z-pack) 07/31/2019 08/05/2019 Inactive Levaquin 500 mg tablet RxNorm: 179416 1 Tablet(s) Oral QD Replaces azithromycin (z-pack) 07/21/2019 07/26/2019 Inactive Levaquin 500 mg tablet RxNorm: 688985 1 Tablet(s) Oral QD Replaces azithromycin (z-pack) 07/21/2019 07/20/2019 Inactive Zithromax Z-Gui 250 mg tablet RxNorm: 286112 Tablet(s) Oral 07/22/2019 Inactive Zithromax Z-Gui 250 mg tablet RxNorm: 026108 Tablet(s) Oral 07/15/2019 Inactive Symbicort 160 mcg-4.5 mcg/actuation HFA aerosol inhaler RxNo rm: 3831110 2 Puff(s) Inhalation two times a day 07/14/2019 07/14/2019 Inactive Tessalon Perles 100 mg capsule RxNorm: 623244 1 Capsule(s) Oral Q8H as needed 07/14/2019 08/06/2019 Inactive Seroquel 50 mg tablet RxNorm: 623899 1 Tablet(s) Oral QPM as ne eded for sleep 07/01/2019 10/06/2019 Inactive ondansetron HCl 4 mg tablet RxNorm: 812120 1 Tablet(s) Oral QPM for nausea 06/24/2019 07/24/2019 Inactive Seroquel 25 mg tablet RxNorm: 968395 1 Tablet(s) Oral every nig ht at bedtime 06/19/2019 06/18/2019 Inactive Seroquel 25 mg tablet RxNorm: 565730 1 Tablet(s) Oral every nig ht at bedtime 06/19/2019 06/30/2019 Inactive trazodone 150 mg tablet RxNorm: 214442 1/2 Tablet(s) PO QHS as needed for sleep 06/11/2019 06/17/2019 Inactive replaces PA on doxep in trazodone 150 mg tablet RxNorm: 872774 1/2 Tablet(s) PO QHS as needed for sleep 05/12/2019 06/11/2019 Inactive replaces PA on doxep in Vitamin D3 5,000 unit tablet RxNorm: 074843 1 Tablet(s) PO QD 05/09 No Stop Date Active magnesium oxide 400 mg (241.3 mg magnesium) tablet RxNorm: 1 86981 1 Tablet(s) PO QHS 05/09/2019 No Stop Date Active cyanocobalamin (vit B-12) 1,000 mcg/mL injection solution Rx Norm: 403195 1 injection weekly for 4 weeks 1 Milliliter(s) Inj 05/09/2019 12/21/2019 Inactive ferrous sulfate 325 mg (65 mg iron) tablet RxNorm: 270507 1 Tab let(s) PO QD 05/09/2019 12/21/2019 Inactive ropinirole 4 mg tablet RxNorm: 448169 3 TABLET(S) BY [facility] DAILY AT BEDTIME FOR RESTLESS LEGS 03/26/2019 06/23/2019 Inactive Generic For:REQU IP 4 MG TABLET 03/26/2019 11:23:36 AM N O T I C E Last quantity doesn't match original quantity pantoprazole 40 mg tablet,delayed release RxNorm: 270670 Tablet(s) TAKE 1 TABLET BY MOUTH DAILY FOR STOMACH 03/24/2019 06/21/2019 Inactive Gener ic For:PROTONIX 40MG TAB EC 01/03/2019 1:23:44 PM hydroxyzine HCl 10 mg tablet RxNorm: 034459 1 Tablet(s) PO BID as needed 03/24/2019 04/06/2019 Inactive ipratropium-albuterol 0.5 mg-3 mg(2.5 mg base)/3 mL ne bulization soln RxNorm: 5560506 1 Unit Dose INH Q4H 03/21/2019 No Stop Date Active replaces albuterol solution meclizine 12.5 mg tablet RxNorm: 345142 1 Tablet(s) PO BID as neede d 03/21/2019 12/21/2019 Inactive losartan 100 mg tablet RxNorm: 979590 1 Tablet(s) PO QD replace s lisinopril 03/13/2019 09/08/2019 Inactive fluconazole 100 mg tablet RxNorm: 209930 1 Tablet(s) PO QD 03/13/20 19 03/19/2019 Inactive nystatin 100,000 unit/mL oral suspension RxNorm: 249048 5 Unit( s) PO QID 03/13/2019 03/26/2019 Inactive tramadol 50 mg tablet RxNorm: 744510 1 Tablet(s) PO TID as needed for pain TAKE 2 TABS OF EXTRA STRENGTH TYLENOL WITH EACH DOSE 03/10/2019 04/06/2019 Inactive Generic For:*ULTRAM 50 MG TABLET 01/15/2019 4:55:26 PM Sinemet CR 50 mg-200 mg tablet,extended release RxNorm: 8343 41 1 Tablet(s) PO TID 02/26/2019 08/24/2019 Inactive Generic For:*SIN EMET CR 50/200 TABLET SA 07/08/2018 3:09:11 PM trazodone 150 mg tablet RxNorm: 098800 1/2 Tablet(s) PO QHS as needed for sleep 02/13/2019 02/12/2019 Inactive trazodone 150 mg tablet RxNorm: 718928 1/2 Tablet(s) PO QHS as needed for sleep 02/13/2019 02/25/2019 Inactive replaces PA on doxep in doxepin 10 mg capsule RxNorm: 2818454 1-2 Capsule(s) PO QHS prn sleep 02/13/2019 02/13/2019 Inactive Novolog U-100 Insulin aspart 100 unit/mL subcutaneous soluti on RxNorm: 607567 INJECT 10 UNIT(S) SUBCUTANEOUSLY BEFORE MEALS 01/31/2019 05/30/2019 In active 01/31/2019 1:39:10 PM ipratropium-albuterol 0.5 mg-3 mg(2.5 mg base)/3 mL ne bulization soln RxNorm: 7943733 1 Unit Dose INH Q4H 01/17/2019 03/20/2019 Inactive replaces albuterol solution tramadol 50 mg tablet RxNorm: 511603 1 Tablet(s) PO TID as needed for pain TAKE 2 TABS OF EXTRA STRENGTH TYLENOL WITH EACH DOSE 01/15/2019 02/03/2019 Inactive Generic For:*ULTRAM 50 MG TABLET 01/15/2019 4:55:26 PM Sinemet CR 50 mg-200 mg tablet,extended release RxNorm: 8343 41 1 Tablet(s) PO BID 01/03/2019 02/25/2019 Inactive Generic For:*SIN EMET CR 50/200 TABLET SA 07/08/2018 3:09:11 PM losartan 100 mg tablet RxNorm: 518395 1 Tablet(s) PO QD replace s lisinopril 01/03/2019 03/12/2019 Inactive Symbicort 160 mcg-4.5 mcg/actuation HFA aerosol inhaler RxNo rm: 2139857 2 Puff(s) INH BID 01/03/2019 01/02/2019 Inactive pantoprazole 40 mg tablet,delayed release RxNorm: 618821 TAKE 1 TABLET BY MOUTH DAILY FOR STOMACH 01/03/2019 03/23/2019 Inactive Generic For:TX OTONIX 40MG TAB EC 01/03/2019 1:23:44 PM nystatin 100,000 unit/mL oral suspension RxNorm: 651114 Unit(s) 5 Unit(s) PO QID swish and spit 01/02/2019 11/11/2019 Inactive Incruse Ellipta 62.5 mcg/actuation powder for inhalation RxN orm: 5404537 1 Capsule(s) INH QD 12/25/2018 12/21/2019 Inactive Tessalon Perles 100 mg capsule RxNorm: 125457 1 Capsule(s) PO T ID for cough 12/25/2018 02/25/2019 Inactive Medrol (Gui) 4 mg tablets in a dose pack RxNorm: 712019 Tablet(s) PO Use as directed 12/23/2018 01/02/2019 Inactive Levemir FlexTouch U-100 Insulin 100 unit/mL (3 mL) sub cutaneous pen RxNorm: 242791 20 Unit(s) SQ QD with pen needles 12/13/2018 05/11/2019 Inactiv e prednisone 20 mg tablet RxNorm: 598243 1 Tablet(s) PO QD 12/12/2018 0 12/11/2018 Inactive prednisone 20 mg tablet RxNorm: 042743 1 Tablet(s) PO QD 12/12/2018 0 12/16/2018 Inactive promethazine 6.25 mg-codeine 10 mg/5 mL syrup RxNorm: 302984 5 Milliliter(s) PO QHS as needed for cough 12/09/2018 12/18/2018 Inactive cefdinir 300 mg capsule RxNorm: 591467 1 Capsule(s) PO BID 12/10/1912/18/2018 Inactive fluconazole 100 mg tablet RxNorm: 019014 1 Tablet(s) PO QD 12/06/1912/08/2018 Inactive ropinirole 4 mg tablet RxNorm: 615742 3 Tablet(s) PO QHS for re stless legs 12/04/2018 03/03/2019 Inactive Novolog U-100 Insulin aspart 100 unit/mL subcutaneous soluti on RxNorm: 832066 INJECT 10 UNIT(S) SUBCUTANEOUSLY BEFORE MEALS 12/04/2018 01/30/2019 In active 12/04/2018 10:02:42 AM nystatin 100,000 unit/mL oral suspension RxNorm: 789295 5 Unit(s) PO QID swish and spit 11/25/2018 12/18/2018 Inactive ropinirole 4 mg tablet RxNorm: 317520 3 Tablet(s) PO QHS for re stless legs 11/04/2018 12/03/2018 Inactive prednisone 20 mg tablet RxNorm: 253410 1 Tablet(s) PO BID 10/23/2018 10/29/2018 Inactive ropinirole 4 mg tablet RxNorm: 211848 3 Tablet(s) PO QHS for re stless legs 10/14/2018 11/04/2018 Inactive pantoprazole 40 mg tablet,delayed release RxNorm: 962586 1 Tablet(s) PO QD forstomach 10/10/2018 01/02/2019 Inactive Symbicort 160 mcg-4.5 mcg/actuation HFA aerosol inhaler RxNo rm: 6042337 2 Puff(s) INH BID 10/10/2018 01/03/2019 Inactive Novolog U-100 Insulin aspart 100 unit/mL subcutaneous soluti on RxNorm: 429266 INJECT 10 UNIT(S) SUBCUTANEOUSLY BEFORE MEALS 10/10/2018 12/03/2018 In active 10/10/2018 11:30:01 AM Sinemet CR 50 mg-200 mg tablet,extended release RxNorm: 8343 41 1 Tablet(s) PO BID 09/26/2018 01/03/2019 Inactive Generic For:*SIN EMET CR 50/200 TABLET SA 07/08/2018 3:09:11 PM ropinirole 4 mg tablet RxNorm: 331929 2 Tablet(s) PO QHS for re stless legs 09/18/2018 10/13/2018 Inactive metformin ER 1,000 mg tablet,extended release 24hr RxNorm: 1 925996 1 Tablet(s) PO BID 09/09/2018 12/18/2018 Inactive ropinirole 4 mg tablet RxNorm: 701618 2 Tablet(s) PO QHS for re stless legs 08/21/2018 09/17/2018 Inactive doxycycline hyclate 100 mg capsule RxNorm: 1583254 1 Capsule(s) PO BID 08/07/2018 08/13/2018 Inactive ropinirole 4 mg tablet RxNorm: 099713 1 Tablet(s) PO QHS replac es 1mg dose 08/07/2018 08/20/2018 Inactive ropinirole 2 mg tablet RxNorm: 178067 TAKE 3 TABLETS BY MOUTH DAILY AT BEDTIME DO NOT EXCEED 3 TABLETS PER DAY!!!! 07/31/2018 08/06/2018 Inactive Generic For:REQUIP 2 MG TABLET 07/30/2018 3:50:28 PM Symbicort 160 mcg-4.5 mcg/actuation HFA aerosol inhaler RxNo rm: 4619259 2 Puff(s) INH BID 07/12/2018 10/09/2018 Inactive Sinemet CR 50 mg-200 mg tablet,extended release RxNorm: 8343 41 TAKE 1 TABLET BY MOUTH TWICE DAILY 07/08/2018 09/26/2018 Inactive Generic For:*S INEMET CR 50/200 TABLET 07/08/2018 3:09:11 PM losartan 100 mg tablet RxNorm: 282245 1 Tablet(s) PO QD replace s lisinopril 06/17/2018 12/13/2018 Inactive Novolog U-100 Insulin aspart 100 unit/mL subcutaneous soluti on RxNorm: 810427 10 Unit(s) SQ AC 06/17/2018 10/09/2018 Inactive albuterol sulfate 2.5 mg/3 mL (0.083 %) solution for n ebulization RxNorm: 425644 Milliliter(s) INH USE 1 VIAL IN NEBULIZE R EVERY FOUR HOURS NEEDED FOR WHEEZING OR SHORTNESS OF BREATH 06/13/2018 01/16/2019 Inactive Generic For:*PROVENTIL 0.83 MG/ML SOLUTN 06/13/2013 2:04:46 PM ropinirole 2 mg tablet RxNorm: 527502 3 Tablet(s) PO QH S DO NOT EXCEED 6MG (3 TABLETS) PER DAY!!!! 06/13/2018 07/31/2018 Inactive atorvastatin 40 mg tablet RxNorm: 998015 Tablet(s) TAKE 1 TABLET BY MOUTH EVERY DAY 05/13/2018 12/18/2018 Inactive Generic For:LIPI TOR 40MG TAB 05/01/2018 8:37:31 AM Sinemet CR 50 mg-200 mg tablet,extended release RxNorm: 8343 41 1 Tablet(s) PO BID 05/08/2018 07/06/2018 Inactive Lidocaine Viscous 2 % mucosal solution RxNorm: 6655523 5 Milliliter(s) PO QID as needed 05/02/2018 08/06/2018 Inactive Diflucan 100 mg tablet RxNorm: 509657 1 Tablet(s) PO QD 05/02/2018 Inactive atorvastatin 40 mg tablet RxNorm: 486175 TAKE 1 TABLET BY MOUTH EVERY DAY 05/01/2018 05/13/2018 Inactive Generic For:LIPITOR 40MG TAB 05/01/2018 8:37:31 AM nystatin 100,000 unit/mL oral suspension RxNorm: 933303 5 Unit(s) PO QID (before meals and at bedtime) 04/24/2018 04/30/2018 Inactive Ventolin HFA 90 mcg/actuation aerosol inhaler RxNorm: 588136 2 Puff(s) INH Q4H as needed one inhaler for home and one inhaler for car 04/23/201812/18 Inactive Mucinex 600 mg tablet, extended release RxNorm: 919833 1 Tablet(s) PO BID for congestion 04/22/2018 05/21/2018 Inactive prednisone 10 mg tablet RxNorm: 731555 Tablet(s) PO as directeds 08/06/2018 Inactive ropinirole 2 mg tablet RxNorm: 736010 3 Tablet(s) PO QH S DO NOT EXCEED 6MG (3 TABLETS) PER DAY!!!! 04/09/2018 05/08/2018 Inactive gabapentin 300 mg capsule RxNorm: 757319 1-2 Capsule(s) PO QHS 07/0 02/201804/08/2018 Inactive ropinirole 2 mg tablet RxNorm: 766716 1 Tablet(s) PO QHS 03/28/2018 0 04/08/2018 Inactive gabapentin 300 mg capsule RxNorm: 159512 1-2 Capsule(s) PO QHS 02/2303/29/2018 Inactive gabapentin 300 mg capsule RxNorm: 713680 1-2 Capsule(s) PO QHS 02/2203/13/2018 Inactive gabapentin 300 mg capsule RxNorm: 883051 2 Capsule(s) PO QHS 201703/11/2018 Inactive ropinirole 2 mg tablet RxNorm: 247742 1 Tablet(s) PO QHS 02/28/2018 0 03/28/2018 Inactive ropinirole 2 mg tablet RxNorm: 532729 1 Tablet(s) PO QHS 02/28/2018 0 02/27/2018 Inactive gabapentin 300 mg capsule RxNorm: 857453 1 Capsule(s) PO QHS 201702/27/2018 Inactive pantoprazole 40 mg tablet,delayed release RxNorm: 998432 1 [facility] 01/23/[facility] 05/22/2018 Inactive Voltaren 1 % topical gel RxNorm: 623018 1 Gram(s) TOP QID to ri ght knee 01/23/2018 02/04/2018 Inactive metformin ER 500 mg tablet,extended release 24hr RxNorm: 860 975 2 Tablet(s) PO BID 01/09/2018 12/08/2018 Inactive Requip 1 mg tablet RxNorm: 536930 1 Tablet(s) PO QHS 01/09/201802/27 Inactive prednisone 20 mg tablet RxNorm: 633270 1 Tablet(s) PO T ID for 3 days then 1 po BID for 3 days then one daily for 3 days 01/02/2018 02/03/2018 Inactiv e Levaquin 500 mg tablet RxNorm: 104252 1 Tablet(s) PO QD 01/02/2018 Inactive ProAir HFA 90 mcg/actuation aerosol inhaler RxNorm: 792549 2 Puff(s) INH Q4H as needed 12/28/2017 No Stop Date Active please switch to ventolin if insurance doesn't cover montelukast 10 mg tablet RxNorm: 123643 1 Tablet(s) PO QD 12/28/2017 02/03/2018 Inactive Levaquin 500 mg tablet RxNorm: 286447 1 Tablet(s) PO QD 12/21/2017 Inactive ProAir HFA 90 mcg/actuation aerosol inhaler RxNorm: 428287 2 Puff(s) INH Q4H as needed 12/21/2017 12/27/2017 Inactive please switch to ventolin if insurance doesn't cover doxycycline hyclate 100 mg tablet RxNorm: 498693 1 Tablet(s) PO BID 12/17/2017 12/26/2017 Inactive Levemir FlexTouch U-100 Insulin 100 unit/mL (3 mL) sub cutaneous pen RxNorm: 689383 20 Unit(s) SQ QD with pen needles---Due for labs 12/11/2017 02/03/2018 Inactive Requip 1 mg tablet RxNorm: 567600 1 Tablet(s) PO QHS 12/10/201712/09 Inactive Requip 1 mg tablet RxNorm: 647214 1 Tablet(s) PO QHS 12/10/201701/09 Inactive albuterol sulfate 2.5 mg/3 mL (0.083 %) solution for n ebulization RxNorm: 179035 Milliliter(s) INH USE 1 VIAL IN NEBULIZE R EVERY FOUR HOURS NEEDED FOR WHEEZING OR SHORTNESS OF BREATH 12/05/2017 06/13/2018 Inactive Generic For:*PROVENTIL 0.83 MG/ML SOLUTN 06/13/2013 2:04:46 PM Tudorza Pressair 400 mcg/actuation breath activated RxNorm: 6851256 1 Puff(s) INH BID 12/03/2017 12/10/2017 Inactive Levemir FlexTouch U-100 Insulin 100 unit/mL (3 mL) sub cutaneous pen RxNorm: 461691 10 Unit(s) SQ QD with pen needles---Due for labs 11/16/2017 12/10/2017 Inactive Zofran ODT 4 mg disintegrating tablet RxNorm: 982444 1 Tablet(s) PO Q4H as needed for nausea 10/17/2017 02/04/2018 Inactive Efudex 5 % topical cream RxNorm: 434461 Application TOP QD prn to precancer skin lesions 10/17/2017 02/03/2018 Inactive Sinemet CR 50 mg-200 mg tablet,extended release RxNorm: 8343 41 1 Tablet(s) PO BID 10/17/2017 02/05/2018 Inactive Sinemet CR 50 mg-200 mg tablet,extended release RxNorm: 8343 41 1 Tablet(s) PO QHS 09/25/2017 10/16/2017 Inactive gabapentin 600 mg tablet RxNorm: 816140 1 Tablet(s) PO BID 08/15/20 17 08/14/2017 Inactive gabapentin 600 mg tablet RxNorm: 292169 1 Tablet(s) PO BID 08/15/20 17 12/10/2017 Inactive Novolog U-100 Insulin aspart 100 unit/mL subcutaneous soluti on RxNorm: 717731 10 Unit(s) SQ AC 08/15/2017 02/03/2018 Inactive Novolog 100 unit/mL subcutaneous solution RxNorm: 475799 10 Uni t(s) SQ AC 08/13/2017 08/14/2017 Inactive prednisone 20 mg tablet RxNorm: 323866 2 Tablet(s) PO QD 08/02/2017 1 10/04/2016 Inactive gabapentin 600 mg tablet RxNorm: 379474 Tablet(s) 1 Tab let(s) PO QHS replaces 300mg dose 07/09/2017 08/14/2017 Inactive Breo Ellipta 100 mcg-25 mcg/dose powder for inhalation RxNor m: 3136959 1 Unit Dose INH QD 07/02/2017 08/30/2017 Inactive Tudorza Pressair 400 mcg/actuation breath activated RxNorm: 2667462 1 Puff(s) INH BID 06/18/2017 12/02/2017 Inactive gabapentin 600 mg tablet RxNorm: 035004 1 Tablet(s) PO QHS repl aces 300mg dose 06/14/2017 07/08/2017 Inactive metformin ER 1,000 mg tablet,extended release 24hr RxNorm: 1 486545 1 Tablet(s) PO BID 05/29/2017 01/08/2018 Inactive cyclobenzaprine 5 mg tablet RxNorm: 838916 1 Tablet(s) PO TID 05/2906/07/2017 Inactive metformin ER 1,000 mg tablet,extended release 24hr RxNorm: 8 03518 1 Tablet(s) PO BID 05/25/2017 05/28/2017 Inactive metformin ER 1,000 mg tablet,extended release 24hr RxNorm: 8 78779 1 Tablet(s) PO BID 05/22/2017 05/24/2017 Inactive Amaryl 2 mg tablet RxNorm: 092091 1 Tablet(s) PO BID 05/01/201702/03 Inactive glimepiride 2 mg tablet RxNorm: 387531 1 Tablet(s) PO BID 04/19/2017 02/03/2018 Inactive ferrous sulfate 325 mg (65 mg iron) tablet RxNorm: 555251 1 Tab let(s) PO QHS 04/17/2017 02/03/2018 Inactive Requip 4 mg tablet RxNorm: 867858 1 Tablet(s) PO BID 04/12/201704/11 Inactive Requip 4 mg tablet RxNorm: 649480 1 Tablet(s) PO BID 04/12/201704/15 Inactive Levemir FlexTouch 100 unit/mL (3 mL) subcutaneous insulin pe n RxNorm: 957778 10 Unit(s) SQ QD with pen needles---Due for labs 04/05/2017 11/15/2017 In active Silenor 3 mg tablet RxNorm: 306737 1 Tablet(s) PO QHS 04/05/201709/25 Inactive ropinirole 4 mg tablet RxNorm: 282306 1 Tablet(s) PO QHS 03/29/2017 0 04/01/2017 Inactive ropinirole 4 mg tablet RxNorm: 244643 1 Tablet(s) PO QHS 03/29/2017 0 03/28/2017 Inactive Requip 4 mg tablet RxNorm: 219023 1 Tablet(s) PO QHS 03/28/201704/01 Inactive gabapentin 600 mg tablet RxNorm: 701510 1 Tablet(s) PO QHS repl aces 300mg dose 03/28/2017 04/15/2017 Inactive Requip 4 mg tablet RxNorm: 713461 1 Tablet(s) PO QHS 03/23/201703/27 Inactive gabapentin 600 mg tablet RxNorm: 049160 1 Tablet(s) PO QHS 03/13/20 17 03/12/2017 Inactive gabapentin 600 mg tablet RxNorm: 043047 1 Tablet(s) PO QHS 03/13/20 17 03/27/2017 Inactive gabapentin 300 mg capsule RxNorm: 414747 1 Capsule(s) PO QPM 201603/12/2017 Inactive Generic For:NEURONTIN 300 MG CAPSULE 01/22/2017 10:10:39 AM losartan 100 mg tablet RxNorm: 314276 1 Tablet(s) PO QD replace s lisinopril 02/21/2017 06/17/2018 Inactive gabapentin 300 mg capsule RxNorm: 868538 TAKE 1 CAPSULE BY MOUT H EVERY EVENING 01/22/2017 02/21/2017 Inactive Generic For:NEURONTI N 300 MG CAPSULE 01/22/2017 10:10:39 AM gabapentin 300 mg capsule RxNorm: 820996 1 Capsule(s) PO QPM 201601/21/2017 Inactive Requip 4 mg tablet RxNorm: 259023 1 Tablet(s) PO QHS 12/21/201603/20 Inactive Effient 10 mg tablet RxNorm: 162086 1 Tablet(s) PO QD 12/12/201612/23 Inactive gabapentin 300 mg capsule RxNorm: 526719 1 Capsule(s) PO QPM 201612/03/2016 Inactive gabapentin 300 mg capsule RxNorm: 000268 1 Capsule(s) PO QPM 201612/13/2016 Inactive Requip 4 mg tablet RxNorm: 061111 1 Tablet(s) PO QHS 11/28/201612/21 Inactive atorvastatin 40 mg tablet RxNorm: 953561 Tablet(s) 1 Tablet(s) PO Q D 11/22/2016 08/18/2017 Inactive atorvastatin 40 mg tablet RxNorm: 463867 1 Tablet(s) PO QD 11/23/19 17 11/21/2016 Inactive ropinirole 1 mg tablet RxNorm: 547299 2.5 Tablet(s) PO QPM for legs/sleep 11/14/2016 11/27/2016 Inactive nystatin 100,000 unit/mL oral suspension RxNorm: 405623 5 Unit(s) PO QID swish and spit 10/31/2016 02/03/2018 Inactive fluconazole 100 mg tablet RxNorm: 278451 1 Tablet(s) PO QD 10/31/19 17 11/09/2016 Inactive doxycycline hyclate 100 mg capsule RxNorm: 7583671 1 Capsule(s) PO BID 10/03/2016 10/12/2016 Inactive Levemir FlexTouch 100 unit/mL (3 mL) subcutaneous insulin pe n RxNorm: 250103 10 Unit(s) SQ QD with pen needles 09/18/2016 04/04/2017 Inactive amitriptyline 25 mg tablet RxNorm: 726631 1 Tablet(s) P O QHS as needed for sleep 09/04/2016 10/17/2016 Inactive ropinirole 1 mg tablet RxNorm: 913554 1.5 Tablet(s) PO QPM for legs/sleep 09/04/2016 11/13/2016 Inactive amitriptyline 25 mg tablet RxNorm: 775201 1 Tablet(s) P O QHS as needed for sleep 08/22/2016 09/03/2016 Inactive clopidogrel 75 mg tablet RxNorm: 257629 1 Tablet(s) PO QD 08/10/2016 10/17/2016 Inactive Zoloft 100 mg tablet RxNorm: 354059 2 Tablet(s) PO QHS 08/10/2016 Inactive atorvastatin 40 mg tablet RxNorm: 399861 1 Tablet(s) PO QD 08/10/20 16 10/17/2016 Inactive ropinirole 1 mg tablet RxNorm: 584372 1 Tablet(s) PO QPM for le gs/sleep 08/10/2016 09/03/2016 Inactive losartan 100 mg tablet RxNorm: 600739 1 Tablet(s) PO QD replace s lisinopril 07/20/2016 02/21/2017 Inactive Zofran 4 mg tablet RxNorm: 914912 1 Tablet(s) PO Q4H as needed for nausea 07/06/2016 10/17/2016 Inactive Flagyl 500 mg tablet RxNorm: 236396 1 Tablet(s) PO TID 07/06/2016 Inactive Plavix 75 mg tablet RxNorm: 336007 1 Tablet(s) PO QD 06/08/201607/05 Inactive isosorbide mononitrate ER 30 mg tablet,extended release 24 h r RxNorm: 394823 1 Tablet(s) PO QAM 06/08/2016 08/09/2016 Inactive atorvastatin 40 mg tablet RxNorm: 645742 1 Tablet(s) PO QD 06/08/20 16 08/09/2016 Inactive hydrochlorothiazide 12.5 mg tablet RxNorm: 954098 1 Tablet(s) PO QA M 06/08/2016 07/05/2016 Inactive metformin ER 1,000 mg tablet,extended release 24hr RxNorm: 8 78456 1 Tablet(s) PO BID 06/08/2016 09/05/2016 Inactive metoprolol tartrate 25 mg tablet RxNorm: 524909 1/2 Tablet(s) PO BI D 06/08/2016 08/09/2016 Inactive Zoloft 100 mg tablet RxNorm: 731918 2 Tablet(s) PO QHS 04/03/2016 Inactive metformin ER 1,000 mg tablet,extended release 24hr RxNorm: 8 81211 Tablet(s) 1 Tablet(s) PO QD 03/30/2016 12/18/2018 Inactive Levemir FlexTouch 100 unit/mL (3 mL) subcutaneous insulin pe n RxNorm: 476633 10 Unit(s) SQ QD 03/09/2016 03/08/2016 Inactive Levemir FlexTouch 100 unit/mL (3 mL) subcutaneous insulin pe n RxNorm: 564003 10 Unit(s) SQ QD with pen needles 03/09/2016 03/20/2016 Inactive Mobic 15 mg tablet RxNorm: 550017 1 Tablet(s) PO QD for foot pain 0 02/17/2016 03/17/2016 Inactive Zoloft 100 mg tablet RxNorm: 310442 1 1/2 Tablet(s) PO QHS 01/31/20 16 04/02/2016 Inactive omeprazole 20 mg capsule,delayed release RxNorm: 843233 TAKE 2 CAPSULES BY MOUTH EVERY DAY 01/12/2016 08/09/2016 Inactive Generic For:*CHERYL LOSEC [address] 01/12/2016 8:58:34 AM Zoloft 100 mg tablet RxNorm: 994654 1/2 Tablet(s) PO QH S for 1 week then 1 tablet po q HS 12/30/2015 01/27/2016 Inactive Ventolin HFA 90 mcg/actuation aerosol inhaler RxNorm: 741911 2 Puff(s) INH QID as needed for shortness of breath 12/30/2015 02/03/2018 Inactive [AttnRPh: Saving apply/adjudicate RxGRP:SG20 RxBIN:[id number] RxPCN: ID#:[id number]] metformin ER 1,000 mg tablet,extended release 24hr RxNorm: 8 44304 1 Tablet(s) PO QD 12/20/2015 03/18/2016 Inactive clindamycin 300 mg capsule RxNorm: 056011 1 Capsule(s) PO TID 12/0512/15/2015 Inactive mupirocin 2 % topical cream RxNorm: 955553 TOP to facial lesion s twice daily 11/15/2015 12/15/2015 Inactive cefdinir 300 mg capsule RxNorm: 736029 1 Capsule(s) PO BID 11/15/19 16 11/24/2015 Inactive Medrol (Gui) 4 mg tablets in a dose pack RxNorm: 305538 Tablet(s) PO as directed 10/11/2015 12/15/2015 Inactive albuterol sulfate 2.5 mg/3 mL (0.083 %) solution for n ebulization RxNorm: 258113 INH USE 1 VIAL IN NEBULIZER EVERY FOUR H OURS NEEDED FOR WHEEZING OR SHORTNESS OF BREATH 10/05/2015 10/04/2015 Inactive Generic For:*PRO VENTIL 0.83 MG/ML SOLUTN 06/13/2013 2:04:46 PM doxycycline hyclate 100 mg capsule RxNorm: 9440888 1 Capsule(s) PO BID 10/05/2015 10/14/2015 Inactive albuterol sulfate 2.5 mg/3 mL (0.083 %) solution for n ebulization RxNorm: 430277 Milliliter(s) INH USE 1 VIAL IN NEBULIZE R EVERY FOUR HOURS NEEDED FOR WHEEZING OR SHORTNESS OF BREATH Dx: J44.9 10/05/2015 12/05/2017 Inacti ve Generic For:*PROVENTIL 0.83 MG/ML SOLUTN 06/13/2013 2:04:46 PM albuterol sulfate 2.5 mg/3 mL (0.083 %) solution for n ebulization RxNorm: 988112 3 Milliliter(s) INH USE 1 VIAL IN NEBULI ZER EVERY FOUR HOURS NEEDED FOR WHEEZING OR SHORTNESS OF BREATH 09/06/2015 10/04/2015 Inactive Generic For:*PROVENTIL 0.83 MG/ML SOLUTN 06/13/2013 2:04:46 PM Tradjenta 5 mg tablet RxNorm: 2361274 2 Tablet(s) PO QD 07/22/2015 Inactive albuterol sulfate 2.5 mg/3 mL (0.083 %) solution for n ebulization RxNorm: 897078 3 Milliliter(s) INH USE 1 VIAL IN NEBULI ZER EVERY FOUR HOURS NEEDED FOR WHEEZING OR SHORTNESS OF BREATH 06/29/2015 09/05/2015 Inactive Generic For:*PROVENTIL 0.83 MG/ML SOLUTN 06/13/2013 2:04:46 PM albuterol sulfate 2.5 mg/3 mL (0.083 %) solution for n ebulization RxNorm: 159820 Milliliter(s) INH USE 1 VIAL IN NEBULIZE R EVERY FOUR HOURS NEEDED FOR WHEEZING OR SHORTNESS OF BREATH 06/29/2015 12/04/2017 Inactive Generic For:*PROVENTIL 0.83 MG/ML SOLUTN 06/13/2013 2:04:46 PM doxycycline hyclate 100 mg tablet RxNorm: 621943 1 Tablet(s) PO BID 06/28/2015 07/07/2015 Inactive losartan 100 mg tablet RxNorm: 704761 1 Tablet(s) PO QD -replac es lisinopril 06/14/2015 09/05/2015 Inactive metformin ER 1,000 mg tablet,extended release 24hr RxNorm: 8 96109 1 Tablet(s) PO QD 06/14/2015 09/11/2015 Inactive losartan 100 mg tablet RxNorm: 511552 1 Tablet(s) PO QD -replac es lisinopril 06/14/2015 12/10/2015 Inactive Zocor 20 mg tablet RxNorm: 177885 Tablet(s) Tablet(s) 1 Tablet(s) PO QD -needs lipids labs 06/14/2015 06/14/2015 Inactive atorvastatin 40 mg tablet RxNorm: 064735 1 Tablet(s) PO QD repl aces simvastatin 06/14/2015 12/10/2015 Inactive loratadine 10 mg tablet RxNorm: 076898 Tablet(s) 1 Tablet(s) PO QD for drainage 06/14/2015 06/07/2016 Inactive Celexa 40 mg tablet RxNorm: 961423 1 Tablet(s) PO QD TA KE ONE (1) TABLET BY MOUTH DAILY 06/14/2015 12/29/2015 Inactive Generic For:HARJINDER XA 40 MG TABLET clindamycin 300 mg capsule RxNorm: 765318 2 Capsule(s) PO BID 06/0306/12/2015 Inactive metformin ER 1,000 mg tablet,extended release 24hr RxNorm: 8 43497 1 Tablet(s) PO QD 06/03/2015 06/02/2015 Inactive metformin ER 1,000 mg tablet,extended release 24hr RxNorm: 8 15270 1 Tablet(s) PO QD 06/03/2015 06/13/2015 Inactive mupirocin 2 % topical ointment RxNorm: 115727 TOP apply to open lesion of knee twice daily 06/03/2015 01/30/2016 Inactive Zocor 20 mg tablet RxNorm: 292388 Tablet(s) 1 Tablet(s ) PO QD -needs lipids labs 05/13/2015 06/13/2015 Inactive Celexa 40 mg tablet RxNorm: 174069 1 Tablet(s) PO QD TA KE ONE (1) TABLET BY MOUTH DAILY 05/13/2015 06/13/2015 Inactive Generic For:HARJINDER XA 40 MG TABLET Zocor 20 mg tablet RxNorm: 991934 Tablet(s) 1 Tablet(s ) PO QD -needs lipids labs 02/23/2015 03/24/2015 Inactive loratadine 10 mg tablet RxNorm: 207444 1 Tablet(s) PO QD for dr saenz 12/24/2014 06/13/2015 Inactive Zocor 20 mg tablet RxNorm: 623443 1 Tablet(s) PO QD -needs lipi ds labs 11/17/2014 02/23/2015 Inactive Celexa 40 mg tablet RxNorm: 779073 1 Tablet(s) PO QD 1 Tablet(s) PO QD 1 Tablet(s) PO QD Generic OKAY 11/11/2014 05/13/2015 Inactive Zocor 20 mg tablet RxNorm: 883948 1 Tablet(s) PO QD -needs lipi ds labs 11/11/2014 11/16/2014 Inactive omeprazole 20 mg capsule,delayed release RxNorm: 606748 2 Capsule(s) PO QD TAKE 2 CAPSULES BY MOUTH DAILY 10/27/2014 04/24/2015 Inactive Shena harp For:*PRILOSEC 20 MG CAPSULE trazodone 50 mg tablet RxNorm: 170070 1 1/2 Tablet(s) PO QHS 201412/29/2015 Inactive losartan 100 mg tablet RxNorm: 939522 1 Tablet(s) PO QD -replac es lisinopril 10/26/2014 04/23/2015 Inactive Levaquin 500 mg tablet RxNorm: 457590 1 Tablet(s) PO QD 10/08/2014 Inactive Levaquin 500 mg tablet RxNorm: 690974 1 Tablet(s) PO QD 10/08/2014 Inactive Diflucan 100 mg tablet RxNorm: 564444 1 Tablet(s) PO QD 10/06/2014 Inactive DuoNeb 0.5 mg-3 mg(2.5 mg base)/3 mL solution for nebulizati on RxNorm: 6759506 3 Milliliter(s) INH QID 09/23/2014 08/09/2016 Inactive Ventolin HFA 90 mcg/actuation aerosol inhaler RxNorm: 428199 2 Puff(s) INH QID as needed for shortness of breath 09/21/2014 12/29/2015 Inactive [AttnRPh: Saving apply/adjudicate RxGRP:SG20 RxBIN:[id number] RxPCN: ID#:[id number]] promethazine-codeine 6.25 mg-10 mg/5 mL syrup RxNorm: 146443 1 Teaspoon(s) PO QHS as needed for cough 09/08/2014 09/20/2014 Inactive prednisone 20 mg tablet RxNorm: 470483 1 Tablet(s) PO BID 09/02/2014 09/08/2014 Inactive promethazine-codeine 6.25 mg-10 mg/5 mL syrup RxNorm: 496107 1 Teaspoon(s) PO Q4H 09/02/2014 09/20/2014 Inactive doxycycline monohydrate 100 mg capsule RxNorm: 752842 1 Capsule (s) PO BID 09/02/2014 09/07/2014 Inactive Tessalon Perles 100 mg capsule RxNorm: 490964 1 Capsule (s) PO TID as needed for cough 08/31/2014 09/20/2014 Inactive Actos 15 mg tablet RxNorm: 062816 1 Tablet(s) PO QAM 1 Tablet(s ) PO QAM 08/26/2014 09/20/2014 Inactive loratadine 10 mg tablet RxNorm: 933070 1 Tablet(s) PO QD for dr saenz 08/26/2014 10/26/2014 Inactive Zithromax 500 mg tablet RxNorm: 562158 1 Tablet(s) PO QD 08/25/2014 1 11/01/2013 Inactive Zithromax 500 mg tablet RxNorm: 800296 1 Tablet(s) PO QD 08/25/2014 1 10/25/2013 Inactive Trazadone 75mg Tablet RxNorm: 1 Tablet(s) PO QHS 08/10/20142018 Inactive Zocor 20 mg tablet RxNorm: 833100 1 Tablet(s) PO QD 08/10/20142014 Inactive Trazadone 75mg Tablet RxNorm: 1 Tablet(s) PO QHS as need ed for sleep 08/10/2014 10/08/2014 Inactive Celexa 40 mg tablet RxNorm: 132226 1 Tablet(s) PO QD 1 Tablet(s) PO QD 1 Tablet(s) PO QD Generic OKAY 06/09/2014 10/06/2014 Inactive Actos 15 mg tablet RxNorm: 906805 1 Tablet(s) PO QAM 05/12/201408/26 Inactive lisinopril 20 mg tablet RxNorm: 180288 1 Tablet(s) PO QD 05/12/2014 0 10/26/2014 Inactive TAKE ONE TABLET BY MOUTH EVERY DAY;Gener ic For:*PRINIVIL 20 MG TABLET [AttnRPh: Saving apply/adjudicate RxGRP:SG20 RxBIN:[id number] RxPCN: ID#:[id number]] hydrocodone 5 mg-acetaminophen 325 mg tablet RxNorm: 393732 1 Tablet(s) PO TID as needed for pain for severe pain 04/30/2014 08/09/2014 Inactive hydrocodone 5 mg-acetaminophen 325 mg tablet RxNorm: 564470 1 Tablet(s) PO TID as needed for pain for severe pain 04/17/2014 04/29/2014 Inactive doxycycline hyclate 100 mg capsule RxNorm: 369593 1 Capsule(s) PO BID 03/05/2014 03/04/2014 Inactive doxycycline hyclate 100 mg capsule RxNorm: 453036 1 Capsule(s) PO BID 03/05/2014 03/14/2014 Inactive albuterol sulfate 2.5 mg/3 mL (0.083 %) solution for n ebulization RxNorm: 959314 Milliliter(s) INH USE 1 VIAL IN NEBULIZE R EVERY FOUR HOURS NEEDED FOR WHEEZING OR SHORTNESS OF BREATH 03/02/2014 06/29/2015 Inactive Generic For:*PROVENTIL 0.83 MG/ML SOLUTN 06/13/2013 2:04:46 PM Celexa 40 mg tablet RxNorm: 085530 1 Tablet(s) PO QD 1 Tablet(s) PO QD replaces lexapro. Generic OKAY 01/13/2014 06/09/2014 Inactive Actos 15 mg tablet RxNorm: 118093 1 Tablet(s) PO QAM 01/07/201405/12 Inactive lisinopril 20 mg tablet RxNorm: 755223 1 Tablet(s) PO QD 12/08/2013 0 05/12/2014 Inactive TAKE ONE TABLET BY MOUTH EVERY DAY;Gener ic For:*PRINIVIL 20 MG TABLET cefdinir 300 mg capsule RxNorm: 642327 2 Capsule(s) PO QD 11/10/2013 08/09/2014 Inactive cefdinir 300 mg capsule RxNorm: 726515 2 Capsule(s) PO QD 10/09/2013 10/15/2013 Inactive Actos 15 mg tablet RxNorm: 380213 1 Tablet(s) PO QAM 10/09/201301/06 Inactive doxycycline hyclate 100 mg capsule RxNorm: 6597430 1 Capsule(s) PO Q12H 09/18/2013 09/27/2013 Inactive omeprazole 20 mg capsule,delayed release RxNorm: 633912 2 Capsule(s) PO QD TAKE 2 CAPSULES BY MOUTH DAILY 09/03/2013 03/01/2014 Inactive Generi c For:*PRILOSEC [address] Celexa 40 mg tablet RxNorm: 921590 1 Tablet(s) PO QD re places lexapro. Generic OKAY 09/03/2013 01/13/2014 Inactive Symbicort 160 mcg-4.5 mcg/actuation HFA aerosol inhaler RxNo rm: 3543851 2 Puff(s) INH BID 08/13/2013 03/23/2014 Inactive metformin 1,000 mg tablet RxNorm: 023374 1 Tablet(s) PO BID 013 08/12/2013 Inactive TAKE ONE TABLET BY MOUTH TWI CE DAILY;Generic For:GLUCOPHAGE 1,000 MG TABLET 08/27/12 Thank you Actos 15 mg tablet RxNorm: 135346 1 Tablet(s) PO QAM 06/23/201310/09 Inactive lisinopril 20 mg tablet RxNorm: 974886 1 Tablet(s) PO QD 06/23/2013 0 12/08/2013 Inactive TAKE ONE TABLET BY MOUTH EVERY DAY;Gener ic For:*PRINIVIL 20 MG TABLET albuterol sulfate 2.5 mg/3 mL (0.083 %) solution for n ebulization RxNorm: 517564 Solution for Nebulization INH USE 1 VIAL IN NEBULIZER EVERY FOUR HOURS NEEDED FOR WHEEZING OR SHORTNESS OF BREATH 06/16/2013 03/01/2014 Inactive Generic For:*PROVENTIL 0.83 MG/ML SOLUTN 06/13/2013 2:04:46 PM prednisone 10 mg tablet RxNorm: 903288 1 Tablet(s) PO BID 04/09/2013 04/13/2013 Inactive AndroGel 1.25 gram/actuation (1%) Transdermal Gel Pump RxNorm: 2 46396 TD 04/09/2013 08/09/2014 Inactive APPLY 4 PUMPS OF GEL AT BEDTIME DIRECTED;WC (Appended: Controlled substance eRx refill - RxReferenceNumber: [id number]) azithromycin 250 mg tablet RxNorm: 765977 2 Tablet(s) PO QD 013 04/16/2013 Inactive Amaryl 2 mg tablet RxNorm: 236977 1 Tablet(s) PO BID N eeds appt in 1 month (around March 21) 02/18/2013 08/12/2013 Inactive Amaryl 2 mg tablet RxNorm: 671629 1 Tablet(s) PO BID 02/18/201302/17 Inactive metformin 1,000 mg tablet RxNorm: 017358 1 Tablet(s) PO BID 013 07/27/2013 Inactive TAKE ONE TABLET BY MOUTH TWI CE DAILY;Generic For:GLUCOPHAGE 1,000 MG TABLET 08/27/12 Thank you Actos 15 mg tablet RxNorm: 285100 1 Tablet(s) PO QAM 02/04/201306/03 Inactive albuterol sulfate 2.5 mg/3 mL (0.083 %) Neb Solution RxNorm: 716633 1 Unit Dose INH Q4H prn wheezing or shortness of breath 01/30/2013 06/15/2013 Inac tive Medrol (Gui) 4 mg tablets in a dose pack RxNorm: 022513 Tablet(s) PO as directed 01/20/2013 07/15/2013 Inactive cefdinir 300 mg capsule RxNorm: 645419 1 Capsule(s) PO BID anti biotic 01/20/2013 01/29/2013 Inactive lisinopril 20 mg tablet RxNorm: 203368 Tablet(s) PO 01/13/20132012 Inactive TAKE ONE TABLET BY MOUTH EVERY DAY;Gener ic For:*PRINIVIL 20 MG TABLET citalopram 40 mg tablet RxNorm: 704131 Tablet(s) PO 01/13/20132013 Inactive TAKE ONE (1) TABLET BY MOUTH DAILY;Gener ic For:CELEXA 40 MG TABLET omeprazole 20 mg capsule,delayed release RxNorm: 521865 Capsule(s) PO TAKE 2 CAPSULES BY MOUTH DAILY 11/15/2012 09/03/2013 Inactive Generic For:*PRILOSEC [address] amoxicillin 875 mg tablet RxNorm: 783004 1 Tablet(s) PO BID 013 10/28/2012 Inactive Actos 30 mg tablet RxNorm: 791216 1 Tablet(s) PO QD 09/23/20122011 Inactive Actos 15 mg tablet RxNorm: 490037 1 Tablet(s) PO QAM 09/23/201209/22 Inactive Actos 15 mg tablet RxNorm: 897550 1 Tablet(s) PO QAM 09/23/201202/04 Inactive prednisone 20 mg tablet RxNorm: 784162 1 Tablet(s) PO BID 08/28/2012 09/03/2012 Inactive doxycycline hyclate 100 mg tablet RxNorm: 3143918 1 Tablet(s) PO BI D 08/28/2012 09/06/2012 Inactive metformin 1,000 mg tablet RxNorm: 070492 Tablet(s) PO 08/27/201201/22 Inactive TAKE ONE TABLET BY MOUTH TWICE DAILY;Gen joshua For:GLUCOPHAGE 1,000 MG TABLET 08/27/12 Thank you citalopram 40 mg tablet RxNorm: 516067 Tablet(s) PO 07/30/20122012 Inactive TAKE ONE (1) TABLET BY MOUTH DAILY;Gener ic For:CELEXA 40 MG TABLET lisinopril 20 mg tablet RxNorm: 412393 Tablet(s) PO 07/30/20122012 Inactive TAKE ONE TABLET BY MOUTH EVERY DAY;Gener ic For:*PRINIVIL 20 MG TABLET AndroGel 1.25 gram/actuation (1%) Transdermal Gel Pump RxNor m: [id number] Gel in Metered-Dose Pump TD 07/09/2012 04/08/2013 Inactive APPLY 4 PUM PS OF GEL AT BEDTIME DIRECTED;WC (Appended: Controlled substance eRx refill - RxReferenceNumber: [id number]) citalopram 40 mg tablet RxNorm: 690535 Tablet(s) PO 07/01/20122011 Inactive TAKE ONE (1) TABLET BY MOUTH DAILY;Gener ic For:CELEXA 40 MG TABLET metformin 1,000 mg tablet RxNorm: 483969 1 Tablet(s) PO BID 012 08/25/2012 Inactive TAKE 1 TABLET BY MOUTH TWICE DAILY;Generic For:GLUCOPHAGE 1,000 MG TABLET meclizine 25 mg Tab RxNorm: 671841 1 Tablet(s) PO QID prn dizziness 05/09/2012 05/18/2012 Inactive lisinopril 20 mg tablet RxNorm: 711977 Tablet(s) PO QD 04/22/2012 Inactive TAKE ONE (1) TABLET BY MOUTH DAILY;Gener ic For:*PRINIVIL 20 MG TABLET metformin 1,000 mg tablet RxNorm: 556726 Tablet(s) PO 03/19/201212/2011 Inactive TAKE 1 TABLET BY MOUTH TWICE DAILY;Gener ic For:GLUCOPHAGE 1,000 MG TABLET cefdinir 300 mg Cap RxNorm: 998315 1 Capsule(s) PO BID 11/28/2011 Inactive cefdinir 300 mg Cap RxNorm: 047632 1 Capsule(s) PO BID 11/01/2011 Inactive citalopram 40 mg tablet RxNorm: 207076 Tablet(s) PO 10/30/20112011 Inactive TAKE ONE (1) TABLET BY MOUTH DAILY;Gener ic For:CELEXA 40 MG TABLET cefdinir 300 mg Cap RxNorm: 715578 1 Capsule(s) PO BID 10/02/2011 Inactive metformin 1,000 mg Tab RxNorm: 248165 1 Tablet(s) PO BID 09/28/2011 0 01/25/2012 Inactive citalopram 40 mg Tab RxNorm: 957659 1 Tablet(s) PO QD 09/28/201111/2011 Inactive omeprazole 20 mg capsule,delayed release RxNorm: 128392 2 Capsu le(s) PO QD 09/28/2011 03/25/2012 Inactive lisinopril 20 mg Tab RxNorm: 907397 Tablet(s) PO 08/21/2011 04/21/2012 Inactive TAKE ONE (1) TABLET BY MOUTH DAILY;Generic For:*PRINIVIL 20 MG TABLET AndroGel 1.25 gram/actuation (1%) Transdermal Gel Pump RxNor m: [id number] Gel in Metered-dose Pump TD 08/21/2011 07/09/2012 Inactive APPLY 4 PUM PS OF GEL AT BEDTIME DIRECTED (Appended: Controlled substance eRx refill - RxReferenceNumber: [id number]) Lantus Solostar 100 unit/mL (3 mL) Sub-Q Insulin Pen RxNorm: 344638 30 Unit(s) SQ QD 06/20/2011 05/08/2012 Inactive Lantus Solostar 100 unit/mL (3 mL) Sub-Q Insulin Pen RxNorm: 573092 30 Unit(s) SQ QD 06/19/2011 06/19/2011 Inactive metformin 1,000 mg Tab RxNorm: 533256 1 Tablet(s) PO BID 05/12/2011 1 11/09/2010 Inactive citalopram 40 mg Tab RxNorm: 707848 1 Tablet(s) PO QD 03/06/201105/2011 Inactive metformin 1,000 mg Tab RxNorm: 312848 1 Tablet(s) PO BID 12/27/2010 0 04/25/2011 Inactive lisinopril 20 mg Tab RxNorm: 564741 Tablet(s) PO TAKE 1 TABLET BY MOUTH EVERY DAY;Generic For:*PRINIVIL 20 MG TABLET 12/26/2010 08/20/2011 Inactive Ceftin 500 mg Tab RxNorm: 904011 1 Tablet(s) PO BID 12/19/20102010 Inactive omeprazole 20 mg Cap, Delayed Release RxNorm: 972464 2 Capsule( s) PO QD 09/13/2010 03/11/2011 Inactive Byetta 10 mcg/0.04 mL per dose Sub-Q Pen Injector RxNorm: 84 7913 1 Unit Dose SQ BID 09/07/2010 10/06/2010 Inactive Celexa 40 mg tablet RxNorm: 836748 1 Tablet(s) PO QD re places lexapro. Generic OKAY 08/09/2010 02/04/2011 Inactive Actos 30 mg Tab RxNorm: 985269 1 Tablet(s) PO QD 08/09/2010 04/02/2011 Inactive lisinopril 20 mg Tab RxNorm: 966672 1 Tablet(s) PO QD 08/09/201011/22 Inactive metformin 1,000 mg Tab RxNorm: 719868 1 Tablet(s) PO BID 08/09/2010 0 12/06/2010 Inactive Metformin 1,000 mg Tab RxNorm: 188942 1 Tablet(s) PO BID 04/26/2010 0 04/25/2010 Inactive metformin 1,000 mg Tab RxNorm: 591790 1 Tablet(s) PO BID 04/26/2010 1 Inactive Lomotil 2.5 mg-0.025 mg Tab RxNorm: 1228970 1 Tablet(s) PO TID 1-2 TABS THREE TIMES DAILY 04/05/2010 04/07/2010 Inactive Mupirocin 2 % Topical Cream RxNorm: 807979 TOP BID 04/05/201003/25 Inactive lisinopril 20 mg Tab RxNorm: 259569 1 Tablet(s) PO QD 03/29/201010/2009 Inactive Actos 30 mg Tab RxNorm: 350071 1 Tablet(s) PO QD 03/29/2010 07/26/2010 Inactive Lisinopril 20 mg Tab RxNorm: 668595 1 Tablet(s) PO QD 02/27/201001/2010 Inactive Actos 30 mg Tab RxNorm: 851236 1 Tablet(s) PO QD 02/14/2010 03/28/2010 Inactive Celexa 40 mg Tab RxNorm: 438821 1 Tablet(s) PO QD replaces lexapro 01/13/2010 07/11/2010 Inactive Cyclobenzaprine 10 mg Tab RxNorm: 447167 1 Tablet(s) PO TID prn spasm 12/23/2009 01/21/2010 Inactive Cyclobenzaprine 10 mg Tab RxNorm: 745044 1 Tablet(s) PO TID 010 12/22/2009 Inactive Hydrocodone-Acetaminophen 7.5 mg-750 mg Tab RxNorm: 581837 1 Ta blet(s) PO Q4-6H 12/23/2009 12/22/2009 Inactive aspirin 81 mg tablet RxNorm: 084978 1 Tablet(s) PO QD No Start Date Active isosorbide mononitrate ER 60 mg tablet,extended release 24 h r RxNorm: 495613 1 Tablet(s) PO QD No Start Date Active amlodipine 5 mg tablet RxNorm: 036053 1 Tablet(s) PO QD No Start Date Active Vitamin D3 1,000 unit tablet RxNorm: 657436 3 Tablet(s) PO QD No St art Date 10/26/2014 Inactive Lexapro 20 mg Tab RxNorm: 103690 1 Tablet(s) PO QD No Start Date 12/24 Inactive loperamide 2 mg tablet RxNorm: 584120 Tablet(s) PO PRN No Start Date 06/07/2016 Inactive Levemir FlexTouch U-100 Insulin 100 unit/mL (3 mL) sub cutaneous pen RxNorm: 544531 22 Unit(s) SQ QD No Start Date 12/21/2019 Inactive Janumet 50 mg-1,000 mg Tab RxNorm: 671787 1 Tablet(s) PO BID No Sta rt Date 01/12/2010 Inactive Levemir U-100 Insulin 100 unit/mL subcutaneous solution RxNo rm: 295245 10 Unit(s) SQ QHS No Start Date 12/08/2018 Inactive Medrol (Gui) 4 mg tablets in a dose pack RxNorm: 745114 Tablet(s) PO Use as directed No Start Date 12/22/2018 Inactive aspirin 325 mg tablet RxNorm: 084079 1 Tablet(s) PO QD No Start Date 08/09/2016 Inactive Efudex 5 % Topical Cream RxNorm: 926471 Application TOP QD prn fto skin lesion No Start Date 08/12/2013 Inactive nitroglycerin 0.4 mg sublingual tablet RxNorm: 902550 Tablet(s) SL as needed No Start Date 12/18/2018 Inactive levofloxacin 500 mg tablet RxNorm: 149156 1 Tablet(s) PO QD No Star t Date 08/06/2018 Inactive ferrous sulfate 325 mg (65 mg iron) tablet RxNorm: 914435 1 Tab let(s) PO QHS No Start Date 04/16/2017 Inactive fluorouracil 5 % topical cream RxNorm: 306316 1 TOP No Start James e 08/06/2018 Inactive Vitamin D3 1,000 unit capsule RxNorm: 582266 1 Capsule(s) PO QD No Start Date 02/03/2018 Inactive Hydrocodone-Acetaminophen 7.5 mg-750 mg Tab RxNorm: 308514 1 Ta blet(s) PO PRN No Start Date 08/09/2014 Inactive pantoprazole 40 mg tablet,delayed release RxNorm: 340393 1 Tabl et(s) PO QD No Start Date 01/22/2018 Inactive omeprazole 20 mg Cap, Delayed Release RxNorm: 808735 2 Capsule( s) PO QD No Start Date 09/12/2010 Inactive DuoNeb 0.5 mg-3 mg(2.5 mg base)/3 mL solution for nebulizati on RxNorm: 9806509 INH Q4H as needed No Start Date 10/22/2018 Inactive Lyrica 75 mg capsule RxNorm: 027353 2 Capsule(s) PO QHS No Start Da te 03/09/2019 Inactive isosorbide mononitrate ER 30 mg tablet,extended release 24 h r RxNorm: 874293 1 Tablet(s) PO QD No Start Date 12/08/2018 Inactive Tradjenta 5 mg tablet RxNorm: 7138132 1 Tablet(s) PO QD No Start Da te 08/09/2016 Inactive Tudorza Pressair 400 mcg/actuation breath activated RxNorm: 7575381 1 Puff(s) INH BID No Start Date 06/17/2017 Inactive Lantus Solostar 100 unit/mL (3 mL) Sub-Q Insulin Pen RxNorm: 162401 30 Unit(s) SQ QD No Start Date 06/18/2011 Inactive Requip 4 mg tablet RxNorm: 832458 1 Tablet(s) PO BID No Start Date Inactive Symbicort 160 mcg-4.5 mcg/actuation HFA aerosol inhaler RxNo rm: 3096460 2 Puff(s) INH BID No Start Date 07/11/2018 Inactive atorvastatin 40 mg tablet RxNorm: 379064 1 Tablet(s) PO QD No Start Date 12/18/2018 Inactive tramadol 50 mg tablet RxNorm: 177925 1 Tablet(s) PO TID as needed for pain (take alone with two extra strength tylenol) No Start Date 01/16/2019 Inactive Symbicort 160 mcg-4.5 mcg/actuation HFA aerosol inhaler RxNo rm: 5081280 2 Puff(s) INH BID No Start Date 08/12/2013 Inactive Vitamin D3 5,000 unit tablet RxNorm: 842220 1 Tablet(s) PO QD No St art Date 05/08/2019 Inactive albuterol sulfate 2.5 mg/3 mL (0.083 %) Neb Solution RxNorm: 125606 1 Unit Dose INH Q4H prn wheezing or shortness of breath No Start Date 01/29/2013 Inac tive Ranexa 500 mg tablet,extended release RxNorm: 287993 1 Tablet(s ) PO BID No Start Date 02/03/2018 Inactive Advair Diskus 500 mcg-50 mcg/dose powder for inhalation RxNo rm: 1626268 1 Puff(s) INH BID No Start Date 08/09/2016 Inactive clopidogrel 75 mg tablet RxNorm: 044443 1 Tablet(s) PO QD No Start Date 05/01/2018 Inactive metformin 1,000 mg Tab RxNorm: 666256 1 Tablet(s) PO BID No Start D ate 08/12/2013 Inactive Silenor 3 mg tablet RxNorm: 342119 1 Tablet(s) PO QHS No Start Date 0 04/04/2017 Inactive Medrol (Gui) 4 mg tablets in a dose pack RxNorm: 485139 Tablet(s) PO as directed No Start Date 01/19/2013 Inactive Requip 4 mg tablet RxNorm: 830401 1 Tablet(s) PO BID No Start Date Inactive clopidogrel 75 mg tablet RxNorm: 452326 1 Tablet(s) PO QD No Start Date 02/03/2018 Inactive Tradjenta 5 mg tablet RxNorm: 3767150 1 Tablet(s) PO QD No Start Da te 02/03/2018 Inactive ProAir HFA 90 mcg/Actuation Aerosol Inhaler RxNorm: 355138 2 Pu ff(s) INH PRN No Start Date 07/09/2012 Inactive Tessalon Perles 100 mg capsule RxNorm: 762761 1 Capsule (s) PO TID as needed for cough No Start Date 08/30/2014 Inactive ferrous sulfate 325 mg (65 mg iron) tablet RxNorm: 554366 1 Tab let(s) PO QD No Start Date 05/08/2019 Inactive pioglitazone 15 mg tablet RxNorm: 492761 1 Tablet(s) PO QD No Start Date 09/20/2014 Inactive Lexapro Oral RxNorm: Oral No Start Date 12/13/2009 Inactive Breo Ellipta 100 mcg-25 mcg/dose powder for inhalation RxNor m: 2516220 1 Puff(s) INH BID No Start Date 05/31/2015 Inactive Tylenol Extra Strength 500 mg tablet RxNorm: 040015 2 T ablet(s) PO QHS along with ropironole No Start Date 12/18/2018 Inactive tramadol 50 mg tablet RxNorm: 849064 1 Tablet(s) PO QID as need ed for pain No Start Date 12/24/2018 Inactive cyclobenzaprine 10 mg Tab RxNorm: 152535 Oral No Start Date 12/22 Inactive Levemir FlexTouch 100 unit/mL (3 mL) subcutaneous insulin pe n RxNorm: 442979 10 Unit(s) SQ QD No Start Date 03/08/2016 Inactive amlodipine 5 mg tablet RxNorm: 548457 1 Tablet(s) PO QD No Start Da te 08/09/2016 Inactive Novolog 100 unit/mL subcutaneous solution RxNorm: 263845 10 Uni t(s) SQ AC No Start Date 08/12/2017 Inactive Levemir FlexTouch 100 unit/mL (3 mL) subcutaneous insulin pe n RxNorm: 001406 25 Unit(s) SQ QPM No Start Date 08/06/2018 Inactive Farxiga 5 mg tablet RxNorm: 3557198 1 Tablet(s) PO QD No Start Date 0 10/05/2014 Inactive DuoNeb 0.5 mg-3 mg(2.5 mg base)/3 mL solution for nebulizati on RxNorm: 2966006 inhalation No Start Date 09/23/2014 Inactive Doxycycline 100 mg Cap RxNorm: 003939 1 Capsule(s) PO BID No Start Date 12/18/2010 Inactive Vitamin B12 1000mcg Tablet RxNorm: 1 Tablet(s) PO QD No Start Date 02/03/2018 Inactive Hydrocodone-Acetaminophen 7.5 mg-750 mg Tab RxNorm: 334731 1 Ta blet(s) PO Q6-8H No Start Date 12/22/2009 Inactive Xigduo XR 5 mg-1,000 mg tablet,extended release RxNorm: 1593 833 1 Tablet(s) PO QD No Start Date 05/31/2015 Inactive cyanocobalamin (vit B-12) 1,000 mcg/mL injection solution Rx Norm: 933476 1 injection weekly for 4 weeks 1 Milliliter(s) Inj No Start Date 05/08/2019 Inactive AndroGel 1.25 g/Actuation (1%) Transdermal Gel Pump RxNorm: 7511067 TD Apply 4pumps daily No Start Date 08/21/2011 Inactive Actoplus MET 15 mg-850 mg Tab RxNorm: 839241 1 Tablet(s) PO BID No Start Date 12/18/2010 Inactive Amaryl 2 mg tablet RxNorm: 954288 1 Tablet(s) PO BID No Start Date Inactive Levemir FlexTouch 100 unit/mL (3 mL) subcutaneous insulin pe n RxNorm: 345696 20 Unit(s) SQ QD No Start Date 06/12/2016 Inactive Symbicort 160 mcg-4.5 mcg/actuation HFA aerosol inhaler RxNo rm: 5136044 2 Puff(s) INH BID No Start Date 02/03/2018 Inactive Symbicort 160 mcg-4.5 mcg/Actuation Inhalation HFA Aer osol Inhaler RxNorm: 2017045 2 INH BID No Start Date 12/18/2010 Inactive Farxiga 5 mg tablet RxNorm: 5683288 1 Tablet(s) PO QD No Start Date 0 03/01/2015 Inactive magnesium oxide 400 mg (241.3 mg magnesium) tablet RxNorm: 1 42300 1 Tablet(s) PO QHS No Start Date 05/08/2019 Inactive Tradjenta 5 mg tablet RxNorm: 6984575 2 Tablet(s) PO QD No Start Da te 07/21/2015 Inactive Levemir FlexTouch U-100 Insulin 100 unit/mL (3 mL) sub cutaneous pen RxNorm: 879895 40 Unit(s) SQ QD No Start Date 08/06/2018 Inactive Sinemet CR 50 mg-200 mg tablet,extended release RxNorm: 8343 41 1 Tablet(s) PO QHS No Start Date 09/24/2017 Inactive metoprolol tartrate 25 mg tablet RxNorm: 413828 1/2 Tablet(s) P O BID No Start Date 02/03/2018 Inactive Requip 4 mg tablet RxNorm: 325082 1 Tablet(s) PO QHS No Start Date Inactive Ventolin HFA 90 mcg/actuation aerosol inhaler RxNorm: 466539 2 Puff(s) INH Q4H as needed No Start Date 04/22/2018 Inactive B12 5,000 mcg-100 mcg sublingual lozenge RxNorm: 357049 IM as d irected No Start Date 05/08/2019 Inactive ropinirole 1 mg tablet RxNorm: 345500 1 Tablet(s) PO QHS No Start D ate 08/06/2018 Inactive Percocet 5 mg-325 mg tablet RxNorm: 4068003 1 Tablet(s) PO Q4H as needed for pain (Dr Rizzo) No Start Date 10/22/2018 Inactive hydrocodone 5 mg-acetaminophen 325 mg tablet RxNorm: 792496 1 Tablet(s) PO TID as needed for pain for severe pain No Start Date 04/16/2014 Inactive scopolamine 1.5 mg 72 hr Transderm Patch RxNorm: 013887 Application TD Q72H for dizziness No Start Date 08/12/2013 Inactive ipratropium-albuterol 0.5 mg-3 mg(2.5 mg base)/3 mL ne bulization soln RxNorm: 1766794 1 Unit Dose INH Q4H No Start Date 01/16/2019 Inactive Medication Administered No Medication Administered data Immunizations Vaccine Codes Date Status Influenza CVX: 135 08/07/2019 Complete Pneumococcal CVX: 33 07/24/2017 Complete Influenza CVX: 135 06/13/2016 Complete Pneumococcal CVX: 133 06/13/2016 Complete Influenza CVX: 141 07/10/2012 Pneumovax Unknown 07/10/2012 Results Observation Observation Code Item Item Code Result Date S [facility] Location COMPLETE BLOOD COUNT [id number] WBC 5.5 10e9/L 06/17/20 19 Unknown COMPLETE BLOOD COUNT [id number] RBC 3.92 10e12/L 2018 Unknown COMPLETE BLOOD COUNT 0398513 HEMOGLOBIN 10.9 g/dL 06/17/20 19 Unknown COMPLETE BLOOD COUNT 3172438 HEMATOCRIT 34.8 % 06/17/20 19 Unknown COMPLETE BLOOD COUNT 7187779 MCV 88.8 fL 9 Unknown COMPLETE BLOOD COUNT 4679421 MCH 27.8 pg 9 Unknown COMPLETE BLOOD COUNT 5157362 MCHC 31.3 g/dL 9 Unknown COMPLETE BLOOD COUNT 1094174 PLATELET COUNT 239 10e9/L Unknown COMPLETE BLOOD COUNT 8696555 Mean Plt Volume 10.0 fL Unknown COMPLETE BLOOD COUNT 0444656 Neut Auto 68.0 % 9 Unknown COMPLETE BLOOD COUNT 8556640 Lymph Auto 14.8 % 06/17/20 19 Unknown COMPLETE BLOOD COUNT 6820448 [place] Auto 13.1 % 9 Unknown COMPLETE BLOOD COUNT 3339289 Eos Auto 3.6 % 9 Unknown COMPLETE BLOOD COUNT 1995297 RDW 14.7 % 9 Unknown COMPLETE BLOOD COUNT 2972427 Baso Auto 0.5 % 9 Unknown COMPLETE BLOOD COUNT 7230796 Neutrophil Abs 3.74 10e9/L Unknown COMPLETE BLOOD COUNT 4811717 Lymphocyte Abs 0.81 10e9/L Unknown COMPLETE BLOOD COUNT 2159730 Monocyte Abs 0.72 10e9/L 05/26 Unknown COMPLETE BLOOD COUNT 2338544 Eosinophil Abs 0.20 10e9/L Unknown COMPLETE BLOOD COUNT 0648372 RDW-SD 46.4 fL 9 Unknown COMPLETE BLOOD COUNT 7243755 Basophil Abs 0.03 10e9/L 05/26 Unknown IRON 86816 Iron 36 ug/dL 06/17/2019 Unknown VITAMIN B 12 37214 VITAMIN B12 540 pg/mL 06/17/2019 Unkn own GFR CALC 2547781 GFR Afr Amr >60 mL/min 06/17/2019 Unknow n GFR CALC 9777748 GFR Non Afr Amr 59 mL/min 06/17/2019 Unk nown ERYTHROCYTE SEDIMENTATION RATE 57767 Sed Rate 34 mm/hr 06/17/2019 Unknown THYROID STIMULATING HORMONE 61062 TSH 2.217 uIU/mL 06/17/2019 Unknown COMPREHENSIVE METABOLIC 41102 AST 12 U/L 2018 Unknown COMPREHENSIVE METABOLIC 55371 ALT 11 U/L 2018 Unknown COMPREHENSIVE METABOLIC 73255 BUN 17 mg/dL 2018 Unknown COMPREHENSIVE METABOLIC 78804 ALBUMIN 3.9 g/dL 2018 Unknown COMPREHENSIVE METABOLIC 01500 CHLORIDE 103 mmol/L 06/17 Unknown COMPREHENSIVE METABOLIC 81253 Bili Total 0.4 mg/dL 06/17 Unknown COMPREHENSIVE METABOLIC 19971 ALK PHOS 51 U/L 2018 Unknown COMPREHENSIVE METABOLIC 06284 SODIUM 140 mmol/L 06/17 Unknown COMPREHENSIVE METABOLIC 73383 CREATININE 1.20 mg/dL 05/26 Unknown COMPREHENSIVE METABOLIC 87633 CALCIUM 8.9 mg/dL 2018 Unknown COMPREHENSIVE METABOLIC 63592 POTASSIUM 4.5 mmol/L 06/17 Unknown COMPREHENSIVE METABOLIC 39395 Total Protein 6.1 g/dL Unknown COMPREHENSIVE METABOLIC 46923 Glucose 108 mg/dL 2018 Unknown COMPREHENSIVE METABOLIC 94222 Bicarbonate 27 mmol/L 05/26 Unknown COMPREHENSIVE METABOLIC 47741 AGAP 10 mmol/L 2018 Unknown FERRITIN 27946 FERRITIN 35.5 ng/mL 05/08/2019 Unknown VITAMIN D TOTAL (25 HYDROXY) 02734 Vitamin D 25 OH 26.0 ng/mL 05/08/2019 Unknown GLYCOSYLATED HEMOGLOBIN TEST 04443 Hgb A1c 05738-0 8.2 % 0 05/08/2019 Unknown MEAN GLUC 6225996 Calc Mean Gluc 189 mg/dL 05/08/2019 Unkn own GFR CALC 2856483 GFR Non Afr Amr >60 mL/min 05/08/2019 Un known GFR CALC 3963767 GFR Afr Amr >60 mL/min 05/08/2019 Unknow n VITAMIN B 12 46007 VITAMIN B12 197 pg/mL 05/08/2019 Unkn own IRON 65997 Iron 34 ug/dL 05/08/2019 Unknown COMPLETE BLOOD COUNT 3365800 WBC 6.9 10e9/L 05/08/20 19 Unknown COMPLETE BLOOD COUNT 5449209 RBC 3.95 10e12/L 2018 Unknown COMPLETE BLOOD COUNT 3076023 HEMOGLOBIN 11.1 g/dL 05/08/20 19 Unknown COMPLETE BLOOD COUNT 7151801 HEMATOCRIT 34.9 % 05/08/20 19 Unknown COMPLETE BLOOD COUNT 0509310 MCV 88.4 fL 9 Unknown COMPLETE BLOOD COUNT 3418500 MCH 28.1 pg 9 Unknown COMPLETE BLOOD COUNT 3067276 MCHC 31.8 g/dL 9 Unknown COMPLETE BLOOD COUNT 0561985 PLATELET COUNT 217 10e9/L Unknown COMPLETE BLOOD COUNT 0497392 Mean Plt Volume 9.6 fL Unknown COMPLETE BLOOD COUNT 6628954 Neut Auto 77.6 % 9 Unknown COMPLETE BLOOD COUNT 0909069 Lymph Auto 10.7 % 05/08/20 19 Unknown COMPLETE BLOOD COUNT 7544015 [place] Auto 10.4 % 9 Unknown COMPLETE BLOOD COUNT 5145982 Eos Auto 1.2 % 9 Unknown COMPLETE BLOOD COUNT 3889026 RDW 14.7 % 9 Unknown COMPLETE BLOOD COUNT 4564410 Baso Auto 0.1 % 9 Unknown COMPLETE BLOOD COUNT 9801216 Neutrophil Abs 5.35 10e9/L Unknown COMPLETE BLOOD COUNT 2250840 Lymphocyte Abs 0.74 10e9/L Unknown COMPLETE BLOOD COUNT 4606333 Monocyte Abs 0.72 10e9/L 04/24 Unknown COMPLETE BLOOD COUNT 4659109 Eosinophil Abs 0.08 10e9/L Unknown COMPLETE BLOOD COUNT 0011671 RDW-SD 46.6 fL 9 Unknown COMPLETE BLOOD COUNT 9928311 Basophil Abs 0.01 10e9/L 04/24 Unknown COMPREHENSIVE METABOLIC 46781 AST 13 U/L 2018 Unknown COMPREHENSIVE METABOLIC 06723 ALT 9 U/L 2018 Unknown COMPREHENSIVE METABOLIC 37903 BUN 18 mg/dL 2018 Unknown COMPREHENSIVE METABOLIC 49830 ALBUMIN 4.3 g/dL 2018 Unknown COMPREHENSIVE METABOLIC 98242 CHLORIDE 99 mmol/L 2018 Unknown COMPREHENSIVE METABOLIC 44583 Bili Total 0.4 mg/dL 05/08 Unknown COMPREHENSIVE METABOLIC 32557 ALK PHOS 48 U/L 2018 Unknown COMPREHENSIVE METABOLIC 88061 SODIUM 137 mmol/L 05/08 Unknown COMPREHENSIVE METABOLIC 32943 CREATININE 0.79 mg/dL 04/24 Unknown COMPREHENSIVE METABOLIC 10373 CALCIUM 9.5 mg/dL 2018 Unknown COMPREHENSIVE METABOLIC 05271 POTASSIUM 4.0 mmol/L 05/08 Unknown COMPREHENSIVE METABOLIC 98557 Total Protein 6.3 g/dL Unknown COMPREHENSIVE METABOLIC 40145 Glucose 232 mg/dL 2018 Unknown COMPREHENSIVE METABOLIC 31669 Bicarbonate 27 mmol/L 04/24 Unknown COMPREHENSIVE METABOLIC 93734 AGAP 11 mmol/L 2018 Unknown GLYCOSYLATED HEMOGLOBIN TEST 20276 Hgb A1c 67016-8 8.9 % 0 12/10/2018 Unknown MEAN GLUC 6998710 Calc Mean Gluc 209 mg/dL 12/10/2018 Unkn own LIPID GROUP 19404 Cholesterol 145 mg/dL 12/09/2018 Unkno wn LIPID GROUP 04195 Triglyceride 235 mg/dL 12/09/2018 Unkn own LIPID GROUP 90018 HDL CHOLESTEROL 40 mg/dL 12/09/2018 U nknown LIPID GROUP 24183 Chol/HDL Ratio 3.62 ratio 12/09/2018 U nknown LIPID GROUP 31760 NON-HDL Chol 105 mg/dL 12/09/2018 Unkn own LIPID GROUP 51875 LDL Cholesterol 58 mg/dL 12/09/2018 U nknown THYROID STIMULATING HORMONE 37123 TSH 1.071 uIU/mL 12/09/2018 Unknown GFR CALC 8570478 GFR Non Afr Amr >60 mL/min 12/09/2018 Un known GFR CALC 4462138 GFR Afr Amr >60 mL/min 12/09/2018 Unknow n COMPLETE BLOOD COUNT 9147820 WBC 7.6 10e9/L 12/10/19 19 Unknown COMPLETE BLOOD COUNT 3646168 RBC 3.97 10e12/L 2018 Unknown COMPLETE BLOOD COUNT 8054458 HEMOGLOBIN 11.4 g/dL 12/10/19 19 Unknown COMPLETE BLOOD COUNT 0483303 HEMATOCRIT 35.8 % 12/10/19 19 Unknown COMPLETE BLOOD COUNT 5446282 MCV 90.2 fL 9 Unknown COMPLETE BLOOD COUNT 6242920 MCH 28.7 pg 9 Unknown COMPLETE BLOOD COUNT 0702996 MCHC 31.8 g/dL 9 Unknown COMPLETE BLOOD COUNT 5283968 PLATELET COUNT 200 10e9/L Unknown COMPLETE BLOOD COUNT 5549119 Mean Plt Volume 10.1 fL Unknown COMPLETE BLOOD COUNT 1341032 Neut Auto 79.0 % 9 Unknown COMPLETE BLOOD COUNT 4118649 Lymph Auto 8.3 % 12/10/19 19 Unknown COMPLETE BLOOD COUNT 7496866 [place] Auto 10.8 % 9 Unknown COMPLETE BLOOD COUNT 8180723 RDW 14.6 % 9 Unknown COMPLETE BLOOD COUNT 2309062 Eos Auto 1.5 % 9 Unknown COMPLETE BLOOD COUNT 2509148 Baso Auto 0.4 % 9 Unknown COMPLETE BLOOD COUNT 0995973 Neutrophil Abs 6.00 10e9/L Unknown COMPLETE BLOOD COUNT 3205092 Lymphocyte Abs 0.63 10e9/L Unknown COMPLETE BLOOD COUNT 1254757 Monocyte Abs 0.82 10e9/L 11/22 Unknown COMPLETE BLOOD COUNT 1947634 Eosinophil Abs 0.11 10e9/L Unknown COMPLETE BLOOD COUNT 9661246 Basophil Abs 0.03 10e9/L 11/22 Unknown COMPLETE BLOOD COUNT 1223267 RDW-SD 46.9 fL 9 Unknown COMPREHENSIVE METABOLIC 52214 AST 11 U/L 2018 Unknown COMPREHENSIVE METABOLIC 38219 ALT 11 U/L 2018 Unknown COMPREHENSIVE METABOLIC 67672 BUN 21 mg/dL 2018 Unknown COMPREHENSIVE METABOLIC 98169 ALBUMIN 4.7 g/dL 2018 Unknown COMPREHENSIVE METABOLIC 29123 CHLORIDE 99 mmol/L 2018 Unknown COMPREHENSIVE METABOLIC 17012 Bili Total 0.4 mg/dL 12/09 Unknown COMPREHENSIVE METABOLIC 25098 ALK PHOS 73 U/L 2018 Unknown COMPREHENSIVE METABOLIC 63248 SODIUM 137 mmol/L 12/09 Unknown COMPREHENSIVE METABOLIC 41874 CREATININE 1.12 mg/dL 11/22 Unknown COMPREHENSIVE METABOLIC 26362 CALCIUM 9.4 mg/dL 2018 Unknown COMPREHENSIVE METABOLIC 60782 POTASSIUM 4.2 mmol/L 12/09 Unknown COMPREHENSIVE METABOLIC 60153 Total Protein 6.8 g/dL Unknown COMPREHENSIVE METABOLIC 65866 Glucose 194 mg/dL 2018 Unknown COMPREHENSIVE METABOLIC 13367 Bicarbonate 30 mmol/L 11/22 Unknown COMPREHENSIVE METABOLIC 15675 AGAP 8 mmol/L 2018 Unknown FREE T4 83906 T4 Free 0.86 ng/dL 12/09/2018 Unknown COMPLETE BLOOD COUNT 2056974 WBC 6.8 10e9/L 04/17/20 17 Unknown COMPLETE BLOOD COUNT 1704916 RBC 3.86 10e12/L 2016 Unknown COMPLETE BLOOD COUNT 3494356 HEMOGLOBIN 9.8 g/dL 04/17/20 17 Unknown COMPLETE BLOOD COUNT 0230240 HEMATOCRIT 31.1 % 04/17/20 17 Unknown COMPLETE BLOOD COUNT 1205233 MCV 80.6 fL 7 Unknown COMPLETE BLOOD COUNT 8328834 MCH 25.4 pg 7 Unknown COMPLETE BLOOD COUNT 5214538 MCHC 31.5 g/dL 7 Unknown COMPLETE BLOOD COUNT 0062009 PLATELET COUNT 247 10e9/L Unknown COMPLETE BLOOD COUNT 5130707 Mean Plt Volume 9.7 fL Unknown COMPLETE BLOOD COUNT 4484047 Neut Auto 74.1 % 7 Unknown COMPLETE BLOOD COUNT 8377532 Lymph Auto 12.0 % 04/17/20 17 Unknown COMPLETE BLOOD COUNT 2491709 [place] Auto 10.8 % 7 Unknown COMPLETE BLOOD COUNT 8927031 Eos Auto 2.5 % 7 Unknown COMPLETE BLOOD COUNT 6954489 RDW 15.9 % 7 Unknown COMPLETE BLOOD COUNT 6687753 Baso Auto 0.6 % 7 Unknown COMPLETE BLOOD COUNT 8639489 Neutrophil Abs 5.04 10e9/L Unknown COMPLETE BLOOD COUNT 8022556 Lymphocyte Abs 0.82 10e9/L Unknown COMPLETE BLOOD COUNT 6751500 Monocyte Abs 0.73 10e9/L 03/25 Unknown COMPLETE BLOOD COUNT 8411515 Eosinophil Abs 0.17 10e9/L Unknown COMPLETE BLOOD COUNT 6875102 RDW-SD 44.4 fL 7 Unknown COMPLETE BLOOD COUNT 5478128 Basophil Abs 0.04 10e9/L 03/25 Unknown MEAN GLUC 9776113 Calc Mean Gluc 223 mg/dL 04/17/2017 Unkn own GFR CALC 6737514 GFR Non Afr Amr >60 mL/min 04/17/2017 Un known GFR CALC 2140560 GFR Afr Amr >60 mL/min 04/17/2017 Unknow n GLYCOSYLATED HEMOGLOBIN TEST 91912 Hgb A1c 03255-3 9.4 % 0 04/17/2017 Unknown IRON 34769 Iron 37 ug/dL 04/17/2017 Unknown VITAMIN B 12 31357 VITAMIN B12 280 pg/mL 04/17/2017 Unkn own THYROID STIMULATING HORMONE 35506 TSH 2.481 uIU/mL 04/17/2017 Unknown COMPREHENSIVE METABOLIC 25273 AST 13 U/L 2016 Unknown COMPREHENSIVE METABOLIC 02844 ALT 12 U/L 2016 Unknown COMPREHENSIVE METABOLIC 81496 BUN 18 mg/dL 2016 Unknown COMPREHENSIVE METABOLIC 57695 ALBUMIN 4.7 g/dL 2016 Unknown COMPREHENSIVE METABOLIC 95746 CHLORIDE 103 mmol/L 04/17 Unknown COMPREHENSIVE METABOLIC 15312 Bili Total 0.4 mg/dL 04/17 Unknown COMPREHENSIVE METABOLIC 59933 ALK PHOS 49 U/L 2016 Unknown COMPREHENSIVE METABOLIC 89050 SODIUM 140 mmol/L 04/17 Unknown COMPREHENSIVE METABOLIC 78204 CREATININE 1.14 mg/dL 03/25 Unknown COMPREHENSIVE METABOLIC 80450 CALCIUM 9.4 mg/dL 2016 Unknown COMPREHENSIVE METABOLIC 68401 POTASSIUM 4.4 mmol/L 04/17 Unknown COMPREHENSIVE METABOLIC 40981 Total Protein 6.7 g/dL Unknown COMPREHENSIVE METABOLIC 57915 Glucose 266 mg/dL 2016 Unknown COMPREHENSIVE METABOLIC 68032 Bicarbonate 25 mmol/L 03/25 Unknown COMPREHENSIVE METABOLIC 17428 AGAP 12 mmol/L 2016 Unknown FERRITIN 65378 FERRITIN 10.0 ng/mL 04/17/2017 Unknown COMPLETE BLOOD COUNT 7873074 WBC 6.8 10e9/L 12/22/19 17 Unknown COMPLETE BLOOD COUNT 2824860 RBC 3.70 10e12/L 2016 Unknown COMPLETE BLOOD COUNT 9177454 HEMOGLOBIN 8.0 g/dL 12/22/19 17 Unknown COMPLETE BLOOD COUNT 3661415 HEMATOCRIT 26.7 % 12/22/19 17 Unknown COMPLETE BLOOD COUNT 2590645 MCV 72.2 fL 7 Unknown COMPLETE BLOOD COUNT 7112241 MCH 21.6 pg 7 Unknown COMPLETE BLOOD COUNT 6983286 MCHC 30.0 g/dL 7 Unknown COMPLETE BLOOD COUNT 7935084 PLATELET COUNT 290 10e9/L Unknown COMPLETE BLOOD COUNT 9843517 Mean Plt Volume 9.3 fL Unknown COMPLETE BLOOD COUNT 2850722 Neut Auto 80.2 % 7 Unknown COMPLETE BLOOD COUNT 7178548 Lymph Auto 9.8 % 12/22/19 17 Unknown COMPLETE BLOOD COUNT 2114950 [place] Auto 8.1 % 7 Unknown COMPLETE BLOOD COUNT 4515822 Eos Auto 1.5 % 7 Unknown COMPLETE BLOOD COUNT 0767693 RDW 17.4 % 7 Unknown COMPLETE BLOOD COUNT 1536663 Baso Auto 0.4 % 7 Unknown COMPLETE BLOOD COUNT 1397168 Neutrophil Abs 5.45 10e9/L Unknown COMPLETE BLOOD COUNT 5766743 Lymphocyte Abs 0.67 10e9/L Unknown COMPLETE BLOOD COUNT 6592640 Monocyte Abs 0.55 10e9/L 11/24 Unknown COMPLETE BLOOD COUNT 7473087 Eosinophil Abs 0.10 10e9/L Unknown COMPLETE BLOOD COUNT 1734443 RDW-SD 44.1 fL 7 Unknown COMPLETE BLOOD COUNT 6119220 Basophil Abs 0.03 10e9/L 11/24 Unknown COMPLETE BLOOD COUNT 3175635 WBC 7.6 10e9/L 12/13/19 17 Unknown COMPLETE BLOOD COUNT 1872669 RBC 3.71 10e12/L 2016 Unknown COMPLETE BLOOD COUNT 1639060 HEMOGLOBIN 8.0 g/dL 12/13/19 17 Unknown COMPLETE BLOOD COUNT 4380041 HEMATOCRIT 27.3 % 12/13/19 17 Unknown COMPLETE BLOOD COUNT 3735077 MCV 73.6 fL 7 Unknown COMPLETE BLOOD COUNT 7090157 MCH 21.6 pg 7 Unknown COMPLETE BLOOD COUNT 5583199 MCHC 29.3 g/dL 7 Unknown COMPLETE BLOOD COUNT 4735800 PLATELET COUNT 330 10e9/L Unknown COMPLETE BLOOD COUNT 2265684 Mean Plt Volume 9.7 fL Unknown COMPLETE BLOOD COUNT 7029087 Neut Auto 73.2 % 7 Unknown COMPLETE BLOOD COUNT 6903349 Lymph Auto 14.5 % 12/13/19 17 Unknown COMPLETE BLOOD COUNT 9083327 [place] Auto 10.5 % 7 Unknown COMPLETE BLOOD COUNT 9512780 RDW 17.3 % 7 Unknown COMPLETE BLOOD COUNT 2814666 Eos Auto 1.3 % 7 Unknown COMPLETE BLOOD COUNT 3281138 Baso Auto 0.5 % 7 Unknown COMPLETE BLOOD COUNT 8701412 Neutrophil Abs 5.56 10e9/L Unknown COMPLETE BLOOD COUNT 8336829 Lymphocyte Abs 1.10 10e9/L Unknown COMPLETE BLOOD COUNT 7910776 Monocyte Abs 0.80 10e9/L 11/23 Unknown COMPLETE BLOOD COUNT 3851721 Eosinophil Abs 0.10 10e9/L Unknown COMPLETE BLOOD COUNT 7940394 RDW-SD 45.2 fL 7 Unknown COMPLETE BLOOD COUNT 3750115 Basophil Abs 0.04 10e9/L 11/23 Unknown IRON 24775 Iron 69 ug/dL 03/09/2016 Unknown VITAMIN B 12 73472 VITAMIN B12 311 pg/mL 03/09/2016 Unkn own MEAN GLUC 8879417 Mean Glucose 260 mg/dL 03/07/2016 Unknow n GLYCOSYLATED HEMOGLOBIN TEST 63243 Hgb A1c 94006-9 10.7 % 0 03/07/2016 Unknown COMPREHENSIVE METABOLIC 57315 AST 14 U/L 2015 Unknown COMPREHENSIVE METABOLIC 11003 ALT 21 U/L 2015 Unknown COMPREHENSIVE METABOLIC 05696 BUN 27 mg/dL 2015 Unknown COMPREHENSIVE METABOLIC 69635 ALBUMIN 4.5 g/dL 2015 Unknown COMPREHENSIVE METABOLIC 72097 CHLORIDE 101 mmol/L 03/06 Unknown COMPREHENSIVE METABOLIC 10623 Bili Total 0.4 mg/dL 03/06 Unknown COMPREHENSIVE METABOLIC 77334 ALK PHOS 49 U/L 2015 Unknown COMPREHENSIVE METABOLIC 30049 SODIUM 136 mmol/L 03/06 Unknown COMPREHENSIVE METABOLIC 83683 CREATININE 1.16 mg/dL 02/22 Unknown COMPREHENSIVE METABOLIC 48338 CALCIUM 9.9 mg/dL 2015 Unknown COMPREHENSIVE METABOLIC 68937 POTASSIUM 4.5 mmol/L 03/06 Unknown COMPREHENSIVE METABOLIC 81390 Total Protein 6.7 g/dL Unknown COMPREHENSIVE METABOLIC 91306 Glucose 245 mg/dL 2015 Unknown COMPREHENSIVE METABOLIC 14599 Bicarbonate 24 mmol/L 02/22 Unknown COMPREHENSIVE METABOLIC 90799 AGAP 11 mmol/L 2015 Unknown THYROID STIMULATING HORMONE 33093 TSH 0.775 uIU/mL 03/06/2016 Unknown TESTOSTERONE TOTAL 77629 Testos Total 96 ng/dL 03/06/20 16 Unknown LIPID GROUP 92539 Cholesterol 146 mg/dL 03/06/2016 Unkno wn LIPID GROUP 30173 Triglyceride 249 mg/dL 03/06/2016 Unkn own LIPID GROUP 51627 HDL CHOLESTEROL 46 mg/dL 03/06/2016 U nknown LIPID GROUP 62214 Chol/HDL Ratio 3.17 ratio 03/06/2016 U nknown LIPID GROUP 64104 NON-HDL Chol 100 mg/dL 03/06/2016 Unkn own LIPID GROUP 47041 LDL Cholesterol 50 mg/dL 03/06/2016 U nknown COMPLETE BLOOD COUNT 1611183 WBC 11.2 10e9/L 016 Unknown COMPLETE BLOOD COUNT 2645119 RBC 3.94 10e12/L 2015 Unknown COMPLETE BLOOD COUNT 8066526 HEMOGLOBIN 11.4 g/dL 03/06/20 16 Unknown COMPLETE BLOOD COUNT 0452547 HEMATOCRIT 33.7 % 03/06/20 16 Unknown COMPLETE BLOOD COUNT 3829274 MCV 85.5 fL 6 Unknown COMPLETE BLOOD COUNT 3575547 MCH 28.9 pg 6 Unknown COMPLETE BLOOD COUNT 2409035 MCHC 33.8 g/dL 6 Unknown COMPLETE BLOOD COUNT 1113049 PLATELET COUNT 204 10e9/L Unknown COMPLETE BLOOD COUNT 6740574 Mean Plt Volume 10.1 fL Unknown COMPLETE BLOOD COUNT 6930328 Neut Auto 85.9 % 6 Unknown COMPLETE BLOOD COUNT 7256664 Lymph Auto 6.8 % 03/06/20 16 Unknown COMPLETE BLOOD COUNT 4989900 [place] Auto 7.0 % 6 Unknown COMPLETE BLOOD COUNT 3482104 RDW 13.7 % 6 Unknown COMPLETE BLOOD COUNT 1924866 Eos Auto 0.1 % 6 Unknown COMPLETE BLOOD COUNT 0241625 Baso Auto 0.2 % 6 Unknown COMPLETE BLOOD COUNT 8182187 Neutrophil Abs 9.62 10e9/L Unknown COMPLETE BLOOD COUNT 8448749 Lymphoctye Abs 0.76 10e9/L Unknown COMPLETE BLOOD COUNT 6792874 Monocyte Abs 0.78 10e9/L 02/22 Unknown COMPLETE BLOOD COUNT 7258538 Eosinophil Abs 0.01 10e9/L Unknown COMPLETE BLOOD COUNT 5628844 RDW-SD 41.9 fL 6 Unknown COMPLETE BLOOD COUNT 2003599 Basophil Abs 0.02 10e9/L 02/22 Unknown FREE T4 98562 T4 Free 0.89 ng/dL 03/06/2016 Unknown GFR CALC 4994510 GFR Non Afr Amr >60 mL/min 03/06/2016 Un known GFR CALC 9184144 GFR Afr Amr >60 mL/min 03/06/2016 Unknow n PSA EQUIMOLAR JONATAN 55129 PSA Total 0.78 ng/mL 6 Unknown FREE T4 43729 FREE T4 0.90 NG/DL 07/01/2015 Unknown LIPID GROUP 88078 HDL TEST 44 MG/DL 07/01/2015 Unknown LIPID GROUP 07177 TRIG 303 MG/DL 07/01/2015 Unknown LIPID GROUP 74225 TEST LDL 56 MG/DL 07/01/2015 Unknown LIPID GROUP 52651 CHOL 161 MG/DL 07/01/2015 Unknown LIPID GROUP 74311 RCHOL/HDL 3.66 RATIO 07/01/2015 Unknow n LIPID GROUP 39375 NON-HDL CH 117 MG/DL 07/01/2015 Unknow n THYROID STIMULATING HORMONE 76045 TSH 1.783 uIU/ML 07/01/2015 Unknown COMPLETE BLOOD COUNT 7181067 WBC 6.6 10e9/L 07/01/20 15 Unknown COMPLETE BLOOD COUNT 2894984 RBC 4.18 10e12/L 2014 Unknown COMPLETE BLOOD COUNT 3795457 HGB 12.2 g/dL 5 Unknown COMPLETE BLOOD COUNT 8921755 HCT DET 37.0 % 5 Unknown COMPLETE BLOOD COUNT 2567649 MCV 88.5 fL 5 Unknown COMPLETE BLOOD COUNT 3204553 MCH 29.2 pg 5 Unknown COMPLETE BLOOD COUNT 3467182 MCHC 33.0 g/dL 5 Unknown COMPLETE BLOOD COUNT 2100519 PLT 224 10e9/L 07/01/20 15 Unknown COMPLETE BLOOD COUNT 8689878 MPV 10.4 fL 5 Unknown COMPLETE BLOOD COUNT 3084160 SUSIE % 72.6 % 5 Unknown COMPLETE BLOOD COUNT 7602085 LY % 14.1 % 5 Unknown COMPLETE BLOOD COUNT 1887939 MON % 10.2 % 5 Unknown COMPLETE BLOOD COUNT 8354820 EOS % 2.6 % 5 Unknown COMPLETE BLOOD COUNT 6294752 BASO % 0.5 % 5 Unknown COMPLETE BLOOD COUNT 9066731 RDW 14.1 % 5 Unknown COMPLETE BLOOD COUNT 1068620 ABS SUSIE 4.79 10e9/L 015 Unknown COMPLETE BLOOD COUNT 9852873 ABS LYMPH 0.93 10e9/L 015 Unknown COMPLETE BLOOD COUNT 2801277 ABS MONO 0.67 10e9/L 015 Unknown COMPLETE BLOOD COUNT 2978228 ABS EOS 0.17 10e9/L 015 Unknown COMPLETE BLOOD COUNT 2363619 ABS BASO 0.03 10e9/L 015 Unknown COMPLETE BLOOD COUNT 7486660 RDW-SD 43.9 fL 5 Unknown PSA EQUIMOLAR JONATAN 74673 PSA EQ 0.73 NG/ML 5 Unknown COMPREHENSIVE METABOLIC 07566 AST 24 U/L 2014 Unknown COMPREHENSIVE METABOLIC 01703 ALT 26 IU/L 2014 Unknown COMPREHENSIVE METABOLIC 97751 BUN 26 MG/DL 2014 Unknown COMPREHENSIVE METABOLIC 34579 ALBUMIN 4.6 GM/DL 2014 Unknown COMPREHENSIVE METABOLIC 87377 CHLORIDE 102 MMOL/L 06/01 Unknown COMPREHENSIVE METABOLIC 87905 BILI TOT 0.5 MG/DL 2014 Unknown COMPREHENSIVE METABOLIC 14780 ALK PHOS 56 U/L 2014 Unknown COMPREHENSIVE METABOLIC 41187 SODIUM 136 MMOL/L 06/01 Unknown COMPREHENSIVE METABOLIC 79796 CREATININE 1.16 MG/DL 04/2015 Unknown COMPREHENSIVE METABOLIC 65143 CALCIUM 9.8 MG/DL 2014 Unknown COMPREHENSIVE METABOLIC 96526 POTASSIUM 4.6 MMOL/L 06/01 Unknown COMPREHENSIVE METABOLIC 09137 PROT TOT 7.4 GM/DL 2014 Unknown COMPREHENSIVE METABOLIC 70913 Glucose 223 MG/DL 2014 Unknown COMPREHENSIVE METABOLIC 91680 BICARB 27 MMOL/L 2014 Unknown COMPREHENSIVE METABOLIC 43744 ANION GAP 7 MEQ/L 2014 Unknown GFR CALC 0470783 GFR AA >60 ML/MIN 06/01/2015 Unknown GFR CALC 0240440 GFR NON-AA >60 ML/MIN 06/01/2015 Unknown GLYCOSYLATED HEMOGLOBIN TEST 12736 A1C HPLC 64202-2 8.9 % 0 06/01/2015 Unknown GFR CALC 2696596 GFR AA >60 ML/MIN 02/25/2015 Unknown GFR CALC 6283606 GFR NON-AA >60 ML/MIN 02/25/2015 Unknown COMPREHENSIVE METABOLIC 07341 AST 24 U/L 2014 Unknown COMPREHENSIVE METABOLIC 58646 ALT 25 IU/L 2014 Unknown COMPREHENSIVE METABOLIC 81831 BUN 14 MG/DL 2014 Unknown COMPREHENSIVE METABOLIC 15362 ALBUMIN 4.5 GM/DL 2014 Unknown COMPREHENSIVE METABOLIC 00503 CHLORIDE 99 MMOL/L 2014 Unknown COMPREHENSIVE METABOLIC 84951 BILI TOT 0.5 MG/DL 2014 Unknown COMPREHENSIVE METABOLIC 67326 ALK PHOS 48 U/L 2014 Unknown COMPREHENSIVE METABOLIC 91554 SODIUM 136 MMOL/L 02/25 Unknown COMPREHENSIVE METABOLIC 48014 CREATININE 0.97 MG/DL 12/2014 Unknown COMPREHENSIVE METABOLIC 45525 CALCIUM 9.9 MG/DL 2014 Unknown COMPREHENSIVE METABOLIC 68932 POTASSIUM 4.4 MMOL/L 02/25 Unknown COMPREHENSIVE METABOLIC 68239 PROT TOT 7.1 GM/DL 2014 Unknown COMPREHENSIVE METABOLIC 81797 Glucose 171 MG/DL 2014 Unknown COMPREHENSIVE METABOLIC 30808 BICARB 25 MMOL/L 2014 Unknown COMPREHENSIVE METABOLIC 52641 ANION GAP 12 MEQ/L 2014 Unknown PROTEIN/CREAT URINE WITH RATIO 79070|52100 PROT R U 19 MG/D L 08/27/2014 Unknown PROTEIN/CREAT URINE WITH RATIO 82108|73226 CREAT R U 111 MG/ DL 08/27/2014 Unknown PROTEIN/CREAT URINE WITH RATIO 52027|01579 XRATIO P/C 171 MG /G 08/27/2014 Unknown MICROALBUMIN URINE RANDOM 05802 MICRL MG/L 34.7 MG/L 12/2013 Unknown MICROALBUMIN URINE RANDOM 99749 XM.ALB/CRE 32.7 MG/GCR 1 10/28/2013 Unknown MICROALBUMIN URINE RANDOM 47827 CREAT MG/D 106 MG/DL 12/2013 Unknown MICROALBUMIN URINE RANDOM 57474 CRE/100 1.06 G/L 12/2013 Unknown COMPLETE BLOOD COUNT [id number] WBC 7.1 10e9/L 08/05/20 14 Unknown COMPLETE BLOOD COUNT [id number] RBC 4.35 10e12/L 2013 Unknown COMPLETE BLOOD COUNT [id number] HGB 12.9 g/dL 4 Unknown COMPLETE BLOOD COUNT [id number] HCT DET 39.4 % 4 Unknown COMPLETE BLOOD COUNT [id number] MCV 90.6 fL 4 Unknown COMPLETE BLOOD COUNT [id number] MCH 29.7 pg 4 Unknown COMPLETE BLOOD COUNT [id number] MCHC 32.7 g/dL 4 Unknown COMPLETE BLOOD COUNT [id number] PLT 240 10e9/L 08/05/20 14 Unknown COMPLETE BLOOD COUNT [id number] MPV 10.3 fL 4 Unknown COMPLETE BLOOD COUNT [id number] SUSIE % 70.0 % 4 Unknown COMPLETE BLOOD COUNT [id number] LY % 16.4 % 4 Unknown COMPLETE BLOOD COUNT [id number] MON % 9.2 % 4 Unknown COMPLETE BLOOD COUNT [id number] EOS % 3.8 % 4 Unknown COMPLETE BLOOD COUNT [id number] BASO % 0.6 % 4 Unknown COMPLETE BLOOD COUNT [id number] RDW 13.4 % 4 Unknown COMPLETE BLOOD COUNT [id number] ABS SUSIE 4.97 10e9/L 014 Unknown COMPLETE BLOOD COUNT [id number] ABS LYMPH 1.16 10e9/L 014 Unknown COMPLETE BLOOD COUNT [id number] ABS MONO 0.65 10e9/L 014 Unknown COMPLETE BLOOD COUNT [id number] ABS EOS 0.27 10e9/L 014 Unknown COMPLETE BLOOD COUNT [id number] ABS BASO 0.04 10e9/L 014 Unknown COMPLETE BLOOD COUNT [id number] RDW-SD 43.3 fL 4 Unknown FREE T4 32185 FREE T4 1.02 NG/DL 08/05/2014 Unknown GFR CALC 2241021 GFR AA >60 ML/MIN 08/05/2014 Unknown GFR CALC 9931596 GFR NON-AA >60 ML/MIN 08/05/2014 Unknown GLYCOSYLATED HEMOGLOBIN TEST 53402 A1C HPLC 12176-3 7.7 % 1 10/05/2013 Unknown COMPREHENSIVE METABOLIC 01465 AST 19 U/L 2013 Unknown COMPREHENSIVE METABOLIC 36912 ALT 21 IU/L 2013 Unknown COMPREHENSIVE METABOLIC 49821 BUN 25 MG/DL 2013 Unknown COMPREHENSIVE METABOLIC 84510 ALBUMIN 4.6 GM/DL 2013 Unknown COMPREHENSIVE METABOLIC 78813 CHLORIDE 103 MMOL/L 08/05 Unknown COMPREHENSIVE METABOLIC 75829 BILI TOT 0.4 MG/DL 2013 Unknown COMPREHENSIVE METABOLIC 29980 ALK PHOS 45 U/L 2013 Unknown COMPREHENSIVE METABOLIC 11821 SODIUM 138 MMOL/L 08/05 Unknown COMPREHENSIVE METABOLIC 35642 CREATININE 1.01 MG/DL 07/25 Unknown COMPREHENSIVE METABOLIC 82506 CALCIUM 9.8 MG/DL 2013 Unknown COMPREHENSIVE METABOLIC 21041 POTASSIUM 4.7 MMOL/L 08/05 Unknown COMPREHENSIVE METABOLIC 32527 PROT TOT 7.0 GM/DL 2013 Unknown COMPREHENSIVE METABOLIC 68501 Glucose 145 MG/DL 2013 Unknown COMPREHENSIVE METABOLIC 46636 BICARB 27 MMOL/L 2013 Unknown COMPREHENSIVE METABOLIC 26227 ANION GAP 8 MEQ/L 2013 Unknown THYROID STIMULATING HORMONE 06773 TSH 1.922 uIU/ML 08/05/2014 Unknown LIPID GROUP 29867 HDL TEST 47 MG/DL 08/05/2014 Unknown LIPID GROUP 17196 TRIG 224 MG/DL 08/05/2014 Unknown LIPID GROUP 52697 TEST LDL 125 MG/DL 08/05/2014 Unknown LIPID GROUP 25872 CHOL 217 MG/DL 08/05/2014 Unknown LIPID GROUP 33846 RCHOL/HDL 4.62 RATIO 08/05/2014 Unknow n LIPID GROUP 97748 NON-HDL CH 170 MG/DL 08/05/2014 Unknow n MYCOPLASMA ANTIBODY, IFA [id number] MYCO G IFA 1:256 03/24 Unknown MYCOPLASMA ANTIBODY, IFA [id number] MYCO M IFA <1:10 03/24 Unknown MYCOPLASMA ANTIBODY, IFA [id number] MYCO INTER SEE BELO 03/24 Unknown COMPLETE BLOOD COUNT 2486120 WBC 8.3 10e9/L 04/09/20 13 Unknown COMPLETE BLOOD COUNT [id number] RBC 4.61 10e12/L 2012 Unknown COMPLETE BLOOD COUNT 9279662 HGB 13.9 g/dL 3 Unknown COMPLETE BLOOD COUNT 1081039 HCT DET 41.2 % 3 Unknown COMPLETE BLOOD COUNT 6497983 MCV 89.4 fL 3 Unknown COMPLETE BLOOD COUNT 6731777 MCH 30.2 pg 3 Unknown COMPLETE BLOOD COUNT 3751915 MCHC 33.7 g/dL 3 Unknown COMPLETE BLOOD COUNT 1246172 PLT 249 10e9/L 04/09/20 13 Unknown COMPLETE BLOOD COUNT 8302242 MPV 9.8 fL 3 Unknown COMPLETE BLOOD COUNT 8192611 SUSIE % 65.9 % 3 Unknown COMPLETE BLOOD COUNT 8393171 LY % 19.8 % 3 Unknown COMPLETE BLOOD COUNT [id number] MON % 10.8 % 3 Unknown COMPLETE BLOOD COUNT [id number] EOS % 3.0 % 3 Unknown COMPLETE BLOOD COUNT [id number] BASO % 0.5 % 3 Unknown COMPLETE BLOOD COUNT 7609805 RDW 14.0 % 3 Unknown COMPLETE BLOOD COUNT [id number] ABS SUSIE 5.47 10e9/L 013 Unknown COMPLETE BLOOD COUNT [id number] ABS LYMPH 1.64 10e9/L 013 Unknown COMPLETE BLOOD COUNT [id number] ABS MONO 0.90 10e9/L 013 Unknown COMPLETE BLOOD COUNT [id number] ABS EOS 0.25 10e9/L 013 Unknown COMPLETE BLOOD COUNT [id number] ABS BASO 0.04 10e9/L 013 Unknown COMPLETE BLOOD COUNT [id number] RDW-SD 45.0 fL 3 Unknown URIC ACID 84349 URIC ACID 5.3 MG/DL 02/12/2013 Unknown FREE T4 33993 FREE T4 1.09 NG/DL 02/11/2013 Unknown COMPLETE BLOOD COUNT [id number] WBC 6.3 10e9/L 02/12/20 13 Unknown COMPLETE BLOOD COUNT [id number] RBC 4.29 10e12/L 2012 Unknown COMPLETE BLOOD COUNT 8539415 HGB 13.1 g/dL 3 Unknown COMPLETE BLOOD COUNT 4389129 HCT DET 39.7 % 3 Unknown COMPLETE BLOOD COUNT 3347215 MCV 92.5 fL 3 Unknown COMPLETE BLOOD COUNT 7751121 MCH 30.5 pg 3 Unknown COMPLETE BLOOD COUNT 1356147 MCHC 33.0 g/dL 3 Unknown COMPLETE BLOOD COUNT 2124246 PLT 247 10e9/L 02/12/20 13 Unknown COMPLETE BLOOD COUNT 8363113 MPV 10.0 fL 3 Unknown COMPLETE BLOOD COUNT 2436844 SUSIE % 73.4 % 3 Unknown COMPLETE BLOOD COUNT 4892482 LY % 13.5 % 3 Unknown COMPLETE BLOOD COUNT 3630856 MON % 9.4 % 3 Unknown COMPLETE BLOOD COUNT [id number] EOS % 2.9 % 3 Unknown COMPLETE BLOOD COUNT 8397793 BASO % 0.8 % 3 Unknown COMPLETE BLOOD COUNT 9380803 RDW 13.8 % 3 Unknown COMPLETE BLOOD COUNT [id number] ABS SUSIE 4.62 10e9/L 013 Unknown COMPLETE BLOOD COUNT [id number] ABS LYMPH 0.85 10e9/L 013 Unknown COMPLETE BLOOD COUNT [id number] ABS MONO 0.59 10e9/L 013 Unknown COMPLETE BLOOD COUNT 1463194 ABS EOS 0.18 10e9/L 013 Unknown COMPLETE BLOOD COUNT 8393538 ABS BASO 0.05 10e9/L 013 Unknown COMPLETE BLOOD COUNT 6234338 RDW-SD 45.7 fL 3 Unknown HEMOGLOBIN A1C (GLYCOSYLATED) 6167101 A1C HPLC 34961-3 7.5 % 02/11/2013 Unknown THYROID STIMULATING HORMONE 33593 TSH 1.466 uIU/ML 02/11/2013 Unknown VITAMIN B 12 FOLIC ACID 02704|86297 VIT B 12 625 PG/ML 01/23 Unknown VITAMIN B 12 FOLIC ACID 47823|47321 FOLIC ACID 15.6 NG/ML Unknown COMPREHENSIVE METABOLIC 15604 AST 18 U/L 2012 Unknown COMPREHENSIVE METABOLIC 95706 ALT 21 IU/L 2012 Unknown COMPREHENSIVE METABOLIC 04290 BUN 25 MG/DL 2012 Unknown COMPREHENSIVE METABOLIC 49591 ALBUMIN 4.6 GM/DL 2012 Unknown COMPREHENSIVE METABOLIC 00978 CHLORIDE 103 MMOL/L 02/11 Unknown COMPREHENSIVE METABOLIC 12922 BILI TOT 0.3 MG/DL 2012 Unknown COMPREHENSIVE METABOLIC 09994 ALK PHOS 53 U/L 2012 Unknown COMPREHENSIVE METABOLIC 63666 SODIUM 136 MMOL/L 02/11 Unknown COMPREHENSIVE METABOLIC 17238 CREATININE 1.16 MG/DL 01/23 Unknown COMPREHENSIVE METABOLIC 76759 CALCIUM 10.0 MG/DL 02/11 Unknown COMPREHENSIVE METABOLIC 57323 POTASSIUM 4.9 MMOL/L 02/11 Unknown COMPREHENSIVE METABOLIC 36509 PROT TOT 7.0 GM/DL 2012 Unknown COMPREHENSIVE METABOLIC 07966 Glucose 192 MG/DL 2012 Unknown COMPREHENSIVE METABOLIC 50353 BICARB 26 MMOL/L 2012 Unknown COMPREHENSIVE METABOLIC 38532 ANION GAP 7 MEQ/L 2012 Unknown GFR CALC 3264687 GFR AA >60 ML/MIN 02/11/2013 Unknown GFR CALC 6304529 GFR NON-AA >60 ML/MIN 02/11/2013 Unknown C-REACTIVE PROTEIN (CRP) QUANT 41650 CRP 2.7 MG/DL 02/11/2013 Unknown GFR CALC 7686886 GFR AA >60 ML/MIN 09/19/2012 Unknown GFR CALC 5741724 GFR NON-AA >60 ML/MIN 09/19/2012 Unknown HEMOGLOBIN A1C (GLYCOSYLATED) 0537031 A1C HPLC 16243-4 7.2 % 09/19/2012 Unknown COMPREHENSIVE METABOLIC 51567 AST 13 U/L 2011 Unknown COMPREHENSIVE METABOLIC 04122 ALT 17 IU/L 2011 Unknown COMPREHENSIVE METABOLIC 06676 BUN 25 MG/DL 2011 Unknown COMPREHENSIVE METABOLIC 97769 ALBUMIN 4.5 GM/DL 2011 Unknown COMPREHENSIVE METABOLIC 05346 CHLORIDE 104 MMOL/L 09/19 Unknown COMPREHENSIVE METABOLIC 90965 BILI TOT 0.3 MG/DL 2011 Unknown COMPREHENSIVE METABOLIC 39158 ALK PHOS 43 U/L 2011 Unknown COMPREHENSIVE METABOLIC 40849 SODIUM 139 MMOL/L 09/19 Unknown COMPREHENSIVE METABOLIC 65316 CREATININE 1.10 MG/DL 08/25 Unknown COMPREHENSIVE METABOLIC 99587 CALCIUM 9.8 MG/DL 2011 Unknown COMPREHENSIVE METABOLIC 84558 POTASSIUM 4.8 MMOL/L 09/19 Unknown COMPREHENSIVE METABOLIC 23242 PROT TOT 6.5 GM/DL 2011 Unknown COMPREHENSIVE METABOLIC 55965 Glucose 148 MG/DL 2011 Unknown COMPREHENSIVE METABOLIC 48013 BICARB 25 MMOL/L 2011 Unknown COMPREHENSIVE METABOLIC 77833 ANION GAP 10 MEQ/L 2011 Unknown LIPID GROUP 08965 HDL TEST 44 MG/DL 09/19/2012 Unknown LIPID GROUP 32214 TRIG 318 MG/DL 09/19/2012 Unknown LIPID GROUP 47239 TEST LDL 100 MG/DL 09/19/2012 Unknown LIPID GROUP 02457 CHOL 208 MG/DL 09/19/2012 Unknown LIPID GROUP 06872 RCHOL/HDL 4.73 RATIO 09/19/2012 Unknow n FREE T4 67609 FREE T4 0.87 NG/DL 05/06/2012 Unknown GLYCOSYLATED HEMOGLOBIN TEST 09664 A1C HPLC 44398-7 6.4 % 0 05/06/2012 Unknown LIPID GROUP 07934 HDL TEST 44 MG/DL 05/06/2012 Unknown LIPID GROUP 05799 TRIG 177 MG/DL 05/06/2012 Unknown LIPID GROUP 19679 TEST LDL 113 MG/DL 05/06/2012 Unknown LIPID GROUP 74622 CHOL 192 MG/DL 05/06/2012 Unknown LIPID GROUP 86246 RCHOL/HDL 4.36 RATIO 05/06/2012 Unknow n THYROID STIMULATING HORMONE 56094 TSH 1.151 uIU/ML 05/06/2012 Unknown COMPLETE BLOOD COUNT 72942 WBC 7.8 10e9/L 05/06/20 12 Unknown COMPLETE BLOOD COUNT 45073 RBC 4.31 10e12/L 2011 Unknown COMPLETE BLOOD COUNT 13776 HGB 12.8 g/dL 2 Unknown COMPLETE BLOOD COUNT 35246 HCT DET 39.1 % 2 Unknown COMPLETE BLOOD COUNT 12812 MCV 90.7 fL 2 Unknown COMPLETE BLOOD COUNT 92222 MCH 29.7 pg 2 Unknown COMPLETE BLOOD COUNT 74127 MCHC 32.7 g/dL 2 Unknown COMPLETE BLOOD COUNT 78785 PLT 207 10e9/L 05/06/20 12 Unknown COMPLETE BLOOD COUNT 48732 MPV 10.2 fL 2 Unknown COMPLETE BLOOD COUNT 75818 SUSIE % 74.2 % 2 Unknown COMPLETE BLOOD COUNT 49512 LY % 12.8 % 2 Unknown COMPLETE BLOOD COUNT 50016 MON % 11.0 % 2 Unknown COMPLETE BLOOD COUNT 06324 EOS % 1.7 % 2 Unknown COMPLETE BLOOD COUNT 44510 BASO % 0.3 % 2 Unknown COMPLETE BLOOD COUNT 67585 RDW 13.7 % 2 Unknown COMPLETE BLOOD COUNT 89756 ABS SUSIE 5.79 10e9/L 012 Unknown COMPLETE BLOOD COUNT 83068 ABS LYMPH 1.00 10e9/L 012 Unknown COMPLETE BLOOD COUNT 80069 ABS MONO 0.86 10e9/L 012 Unknown COMPLETE BLOOD COUNT 17008 ABS EOS 0.13 10e9/L 012 Unknown COMPLETE BLOOD COUNT 55531 ABS BASO 0.02 10e9/L 012 Unknown COMPLETE BLOOD COUNT 60790 RDW-SD 44.4 fL 2 Unknown COMPREHENSIVE METABOLIC 37952 AST 13 U/L 2011 Unknown COMPREHENSIVE METABOLIC 26363 ALT 14 IU/L 2011 Unknown COMPREHENSIVE METABOLIC 66750 BUN 17 MG/DL 2011 Unknown COMPREHENSIVE METABOLIC 71381 ALBUMIN 4.5 GM/DL 2011 Unknown COMPREHENSIVE METABOLIC 96805 CHLORIDE 101 MMOL/L 05/06 Unknown COMPREHENSIVE METABOLIC 62309 BILI TOT 0.5 MG/DL 2011 Unknown COMPREHENSIVE METABOLIC 29873 ALK PHOS 42 U/L 2011 Unknown COMPREHENSIVE METABOLIC 33351 SODIUM 141 MMOL/L 05/06 Unknown COMPREHENSIVE METABOLIC 53551 CREATININE 1.02 MG/DL 04/24 Unknown COMPREHENSIVE METABOLIC 62284 CALCIUM 9.7 MG/DL 2011 Unknown COMPREHENSIVE METABOLIC 92652 POTASSIUM 4.6 MMOL/L 05/06 Unknown COMPREHENSIVE METABOLIC 65916 PROT TOT 6.5 GM/DL 2011 Unknown COMPREHENSIVE METABOLIC 13634 Glucose 139 MG/DL 2011 Unknown COMPREHENSIVE METABOLIC 49922 BICARB 29 MMOL/L 2011 Unknown COMPREHENSIVE METABOLIC 76516 ANION GAP 11 MEQ/L 2011 Unknown GFR CALC 3172804 GFR AA >60 ML/MIN 05/06/2012 Unknown GFR CALC 7028906 GFR NON-AA 54.0L ML/MIN 05/06/2012 Unkno wn GLYCOSYLATED HEMOGLOBIN TEST 05136 A1C HPLC 63209-9 6.6 % 1 09/30/2010 Unknown FREE T4 15886 FREE T4 1.00 NG/DL 07/26/2011 Unknown LIPID GROUP 48541 HDL TEST 40 MG/DL 07/26/2011 Unknown LIPID GROUP 21544 TRIG 136 MG/DL 07/26/2011 Unknown LIPID GROUP 43689 TEST LDL 126 MG/DL 07/26/2011 Unknown LIPID GROUP 63052 CHOL 193 MG/DL 07/26/2011 Unknown LIPID GROUP 00083 RCHOL/HDL 4.83 RATIO 07/26/2011 Unknow n COMPREHENSIVE METABOLIC 95306 AST 15 U/L 2010 Unknown COMPREHENSIVE METABOLIC 16830 ALT 13 IU/L 2010 Unknown COMPREHENSIVE METABOLIC 07167 BUN 17 MG/DL 2010 Unknown COMPREHENSIVE METABOLIC 61280 ALBUMIN 4.4 GM/DL 2010 Unknown COMPREHENSIVE METABOLIC 82841 CHLORIDE 102 MMOL/L 07/26 Unknown COMPREHENSIVE METABOLIC 41876 BILI TOT 0.5 MG/DL 2010 Unknown COMPREHENSIVE METABOLIC 58145 ALK PHOS 54 U/L 2010 Unknown COMPREHENSIVE METABOLIC 65853 SODIUM 138 MMOL/L 07/26 Unknown COMPREHENSIVE METABOLIC 82289 CREATININE 0.95 MG/DL 10/2010 Unknown COMPREHENSIVE METABOLIC 59365 CALCIUM 9.3 MG/DL 2010 Unknown COMPREHENSIVE METABOLIC 28626 POTASSIUM 4.3 MMOL/L 07/26 Unknown COMPREHENSIVE METABOLIC 11698 PROT TOT 6.7 GM/DL 2010 Unknown COMPREHENSIVE METABOLIC 03087 Glucose 116 MG/DL 2010 Unknown COMPREHENSIVE METABOLIC 41095 BICARB 28 MMOL/L 2010 Unknown COMPREHENSIVE METABOLIC 50520 ANION GAP 8 MEQ/L 2010 Unknown PSA EQUIMOLAR JONATAN 55131 PSA EQ 1.01 NG/ML 1 Unknown COMPLETE BLOOD COUNT 59474 WBC 6.4 10e9/L 07/26/20 11 Unknown COMPLETE BLOOD COUNT 93216 RBC 4.43 10e12/L 2010 Unknown COMPLETE BLOOD COUNT 09531 HGB 13.2 g/dL 1 Unknown COMPLETE BLOOD COUNT 50484 HCT DET 39.3 % 1 Unknown COMPLETE BLOOD COUNT 87773 MCV 88.7 fL 1 Unknown COMPLETE BLOOD COUNT 80666 MCH 29.8 pg 1 Unknown COMPLETE BLOOD COUNT 62631 MCHC 33.6 g/dL 1 Unknown COMPLETE BLOOD COUNT 38042 PLT 226 10e9/L 07/26/20 11 Unknown COMPLETE BLOOD COUNT 08760 MPV 9.9 fL 1 Unknown COMPLETE BLOOD COUNT 47262 SUSIE % 65.4 % 1 Unknown COMPLETE BLOOD COUNT 90894 LY % 19.7 % 1 Unknown COMPLETE BLOOD COUNT 28668 MON % 10.8 % 1 Unknown COMPLETE BLOOD COUNT 35239 EOS % 3.6 % 1 Unknown COMPLETE BLOOD COUNT 68077 BASO % 0.5 % 1 Unknown COMPLETE BLOOD COUNT 17096 RDW 13.2 % 1 Unknown COMPLETE BLOOD COUNT 51961 ABS SUSIE 4.19 10e9/L 011 Unknown COMPLETE BLOOD COUNT 33503 ABS LYMPH 1.26 10e9/L 011 Unknown COMPLETE BLOOD COUNT 67499 ABS MONO 0.69 10e9/L 011 Unknown COMPLETE BLOOD COUNT 35900 ABS EOS 0.23 10e9/L 011 Unknown COMPLETE BLOOD COUNT 88727 ABS BASO 0.03 10e9/L 011 Unknown COMPLETE BLOOD COUNT 29132 RDW-SD 41.7 fL 1 Unknown THYROID STIMULATING HORMONE 31415 TSH 1.345 uIU/ML 07/26/2011 Unknown GFR CALC 8121926 GFR AA >60 ML/MIN 07/26/2011 Unknown GFR CALC 6569220 GFR NON-AA >60 ML/MIN 07/26/2011 Unknown BRAIN NATRIURETIC PEPTIDE(BNP) 09167 BRAIN PEP 23 pg/mL 01/19/2011 Unknown CANCEL 9649199 CANCEL FOOTNOTE 01/18/2011 Unknown TESTOSTERONE TOTAL 78598 TESTOS TO 138 NG/DL 12/19/2010 Unknown COMPLETE BLOOD COUNT 71063 WBC 8.4 10e9/L 12/08/19 11 Unknown COMPLETE BLOOD COUNT 04475 RBC 4.40 10e12/L 2010 Unknown COMPLETE BLOOD COUNT 88210 HGB 13.3 g/dL 1 Unknown COMPLETE BLOOD COUNT 01160 HCT DET 39.8 % 1 Unknown COMPLETE BLOOD COUNT 48058 MCV 90.5 fL 1 Unknown COMPLETE BLOOD COUNT 51450 MCH 30.2 pg 1 Unknown COMPLETE BLOOD COUNT 62677 MCHC 33.4 g/dL 1 Unknown COMPLETE BLOOD COUNT 47916 PLT 201 10e9/L 12/08/19 11 Unknown COMPLETE BLOOD COUNT 18620 MPV 10.6 fL 1 Unknown COMPLETE BLOOD COUNT 14005 SUSIE % 72.5 % 1 Unknown COMPLETE BLOOD COUNT 52472 LY % 14.8 % 1 Unknown COMPLETE BLOOD COUNT 80800 MON % 10.6 % 1 Unknown COMPLETE BLOOD COUNT 38922 EOS % 1.7 % 1 Unknown COMPLETE BLOOD COUNT 91750 BASO % 0.4 % 1 Unknown COMPLETE BLOOD COUNT 62440 RDW 13.7 % 1 Unknown COMPLETE BLOOD COUNT 96704 ABS SUSIE 6.09 10e9/L 011 Unknown COMPLETE BLOOD COUNT 58832 ABS LYMPH 1.24 10e9/L 011 Unknown COMPLETE BLOOD COUNT 65917 ABS MONO 0.89 10e9/L 011 Unknown COMPLETE BLOOD COUNT 15399 ABS EOS 0.14 10e9/L 011 Unknown COMPLETE BLOOD COUNT 70304 ABS BASO 0.03 10e9/L 011 Unknown COMPLETE BLOOD COUNT 20227 RDW-SD 44.0 fL 1 Unknown LIPID GROUP 67573 HDL TEST 40 MG/DL 12/07/2010 Unknown LIPID GROUP 40201 TRIG 383 MG/DL 12/07/2010 Unknown LIPID GROUP 04370 TEST LDL 82 MG/DL 12/07/2010 Unknown LIPID GROUP 12381 CHOL 199 MG/DL 12/07/2010 Unknown LIPID GROUP 90332 RCHOL/HDL 4.98 RATIO 12/07/2010 Unknow n GFR CALC 5286837 GFR AA >60 ML/MIN 12/07/2010 Unknown GFR CALC 8061738 GFR NON-AA >60 ML/MIN 12/07/2010 Unknown COMPREHENSIVE METABOLIC 02959 AST 29 U/L 2010 Unknown COMPREHENSIVE METABOLIC 38615 ALT 39 IU/L 2010 Unknown COMPREHENSIVE METABOLIC 17979 BUN 17 MG/DL 2010 Unknown COMPREHENSIVE METABOLIC 61695 ALBUMIN 4.9 GM/DL 2010 Unknown COMPREHENSIVE METABOLIC 92120 CHLORIDE 100 MMOL/L 12/07 Unknown COMPREHENSIVE METABOLIC 12785 BILI TOT 0.3 MG/DL 2010 Unknown COMPREHENSIVE METABOLIC 95448 ALK PHOS 53 U/L 2010 Unknown COMPREHENSIVE METABOLIC 07559 SODIUM 137 MMOL/L 12/07 Unknown COMPREHENSIVE METABOLIC 76004 CREATININE 0.98 MG/DL 11/22 Unknown COMPREHENSIVE METABOLIC 97378 CALCIUM 9.5 MG/DL 2010 Unknown COMPREHENSIVE METABOLIC 01113 POTASSIUM 4.3 MMOL/L 12/07 Unknown COMPREHENSIVE METABOLIC 19387 PROT TOT 6.6 GM/DL 2010 Unknown COMPREHENSIVE METABOLIC 55719 Glucose 176 MG/DL 2010 Unknown COMPREHENSIVE METABOLIC 82087 BICARB 28 MMOL/L 2010 Unknown COMPREHENSIVE METABOLIC 74847 ANION GAP 9 MEQ/L 2010 Unknown PSA EQUIMOLAR JONATAN 32592 PSA EQ 0.65 NG/ML 1 Unknown HEMOGLOBIN A1C (GLYCOSYLATED) 13596 A1C HPLC 14267-9 6.9 % 12/07/2010 Unknown Procedures Procedure Codes Date FLU VACC PRSV FREE INC ANTIG 65 AND OLDER CPT-4: 46399 08/07/2019 FLU VACC PRSV FREE INC ANTIG 65 AND OLDER CPT-4: 81253 08/07/2019 ADMIN INFLUENZA VIRUS VAC CPT-4: G0008 08/07/2019 THER/PROPH/DIAG INJ SC/IM CPT-4: 78040 07/14/2019 METHYLPREDNISOLONE INJECTION CPT-4: J2930 07/14/2019 ROUTINE VENIPUNCTURE CPT-4: 03842 06/17/2019 ASSAY THYROID STIM HORMONE CPT-4: 66409 06/17/2019 COMPREHEN METABOLIC PANEL CPT-4: 44075 06/17/2019 COMPLETE CBC W/AUTO DIFF WBC CPT-4: 69334 06/17/2019 ASSAY OF IRON CPT-4: 88334 06/17/2019 VITAMIN B-12 CPT-4: 21481 06/17/2019 RBC SED RATE AUTOMATED CPT-4: 42153 06/17/2019 THER/PROPH/DIAG INJ SC/IM CPT-4: 55054 06/10/2019 THER/PROPH/DIAG INJ SC/IM CPT-4: 91607 06/02/2019 THER/PROPH/DIAG INJ SC/IM CPT-4: 83395 05/27/2019 THER/PROPH/DIAG INJ SC/IM CPT-4: 47646 05/12/2019 ROUTINE VENIPUNCTURE CPT-4: 71364 05/08/2019 COMPREHEN METABOLIC PANEL CPT-4: 57819 05/08/2019 COMPLETE CBC W/AUTO DIFF WBC CPT-4: 51026 05/08/2019 A1C HPLC CPT-4: 15692 05/08/2019 VITAMIN D TOTAL (25 HYDROXY) CPT-4: 59860 05/08/2019 ASSAY OF IRON CPT-4: 40152 05/08/2019 ASSAY OF FERRITIN CPT-4: 65090 05/08/2019 VITAMIN B-12 CPT-4: 82725 05/08/2019 THER/PROPH/DIAG INJ SC/IM CPT-4: 09475 03/21/2019 METHYLPREDNISOLONE INJECTION CPT-4: J2930 03/21/2019 THER/PROPH/DIAG INJ SC/IM CPT-4: 25574 03/13/2019 METHYLPREDNISOLONE INJECTION CPT-4: J2930 03/13/2019 THER/PROPH/DIAG INJ SC/IM CPT-4: 15616 12/25/2018 METHYLPREDNISOLONE INJECTION CPT-4: J2930 12/25/2018 ROUTINE VENIPUNCTURE CPT-4: 68888 12/09/2018 ASSAY OF FREE THYROXINE CPT-4: 91467 12/09/2018 ASSAY THYROID STIM HORMONE CPT-4: 64623 12/09/2018 COMPREHEN METABOLIC PANEL CPT-4: 74781 12/09/2018 COMPLETE CBC W/AUTO DIFF WBC CPT-4: 13168 12/09/2018 LIPID PANEL CPT-4: 40817 12/09/2018 A1C HPLC CPT-4: 96459 12/09/2018 PRESCRIP TRANSMIT VIA ERX SY CPT-4: G8553 08/21/2018 PRESCRIP TRANSMIT VIA ERX SY CPT-4: G8553 08/07/2018 THER/PROPH/DIAG INJ SC/IM CPT-4: 74881 05/23/2018 METHYLPREDNISOLONE INJECTION CPT-4: J2930 05/23/2018 PRESCRIP TRANSMIT VIA ERX SY CPT-4: G8553 05/02/2018 THER/PROPH/DIAG INJ SC/IM CPT-4: 35952 04/29/2018 METHYLPREDNISOLONE INJECTION CPT-4: J2930 04/29/2018 DEXAMETHASONE SODIUM PHOS CPT-4: J1100 04/22/2018 THER/PROPH/DIAG INJ SC/IM CPT-4: 04331 04/22/2018 TRIAMCINOLONE ACET INJ NOS CPT-4: J3301 04/22/2018 PRESCRIP TRANSMIT VIA ERX SY CPT-4: G8553 04/22/2018 PRESCRIP TRANSMIT VIA ERX SY CPT-4: G8553 01/23/2018 URINALYSIS NONAUTO W/O SCOPE CPT-4: 33502 01/02/2018 URINE CULTURE/ COLONY COUNT CPT-4: 43570 01/02/2018 PRESCRIP TRANSMIT VIA ERX SY CPT-4: G8553 01/02/2018 PRESCRIP TRANSMIT VIA ERX SY CPT-4: G8553 12/28/2017 PRESCRIP TRANSMIT VIA ERX SY CPT-4: G8553 12/21/2017 CEFTRIAXONE SODIUM INJECTION CPT-4: J0696 12/17/2017 THER/PROPH/DIAG INJ SC/IM CPT-4: 36747 12/17/2017 THER/PROPH/DIAG INJ SC/IM CPT-4: 98380 12/17/2017 TRIAMCINOLONE ACET INJ NOS CPT-4: J3301 12/17/2017 PRESCRIP TRANSMIT VIA ERX SY CPT-4: G8553 12/17/2017 DRAIN/INJECT JOINT/BURSA CPT-4: 56436 12/11/2017 TRIAMCINOLONE ACET INJ NOS CPT-4: J3301 12/11/2017 DEXAMETHASONE SODIUM PHOS CPT-4: J1100 12/11/2017 DESTRUCT PREMALG LESION (Cryosurgery) CPT-4: 00430 PRESCRIP TRANSMIT VIA ERX SY CPT-4: G8553 10/17/2017 DEXAMETHASONE SODIUM PHOS CPT-4: J1100 08/02/2017 THER/PROPH/DIAG INJ SC/IM CPT-4: 89294 08/02/2017 TRIAMCINOLONE ACET INJ NOS CPT-4: J3301 08/02/2017 PRESCRIP TRANSMIT VIA ERX SY CPT-4: G8553 08/02/2017 PNEUMOCOCCAL VACC 23 OLIVIA IM CPT-4: 53557 07/24/2017 ADMIN PNEUMOCOCCAL VACCINE CPT-4: G0009 07/24/2017 ALBUTEROL NON-COMP UNIT CPT-4: J7613 07/02/2017 AIRWAY INHALATION TREATMENT CPT-4: 46773 07/02/2017 THER/PROPH/DIAG INJ SC/IM CPT-4: 72446 07/02/2017 METHYLPREDNISOLONE INJECTION CPT-4: J2930 07/02/2017 PRESCRIP TRANSMIT VIA ERX SY CPT-4: G8553 05/29/2017 ROUTINE VENIPUNCTURE CPT-4: 28532 04/17/2017 ASSAY OF IRON CPT-4: 49138 04/17/2017 VITAMIN B-12 CPT-4: 81761 04/17/2017 COMPREHEN METABOLIC PANEL CPT-4: 36782 04/17/2017 COMPLETE CBC W/AUTO DIFF WBC CPT-4: 12694 04/17/2017 ASSAY OF FERRITIN CPT-4: 73382 04/17/2017 ASSAY THYROID STIM HORMONE CPT-4: 45401 04/17/2017 A1C HPLC CPT-4: 37884 04/17/2017 DRAIN/INJECT JOINT/BURSA CPT-4: 77480 02/01/2017 TRIAMCINOLONE ACET INJ NOS CPT-4: J3301 02/01/2017 DEXAMETHASONE SODIUM PHOS CPT-4: J1100 02/01/2017 ROUTINE VENIPUNCTURE CPT-4: 63810 12/27/2016 COMPLETE CBC W/AUTO DIFF WBC CPT-4: 84883 12/27/2016 ROUTINE VENIPUNCTURE CPT-4: 68418 12/21/2016 COMPLETE CBC W/AUTO DIFF WBC CPT-4: 46805 12/21/2016 ROUTINE VENIPUNCTURE CPT-4: 30473 12/12/2016 COMPLETE CBC W/AUTO DIFF WBC CPT-4: 53131 12/12/2016 PRESCRIP TRANSMIT VIA ERX SY CPT-4: G8553 10/31/2016 PRESCRIP TRANSMIT VIA ERX SY CPT-4: G8553 10/03/2016 PRESCRIP TRANSMIT VIA ERX SY CPT-4: G8553 09/04/2016 DESTRUCT PREMALG LESION (Cryosurgery) CPT-4: 37058 DESTRUCT PREMALG LES 2-14 CPT-4: 21896 08/22/2016 PRESCRIP TRANSMIT VIA ERX SY CPT-4: G8553 08/10/2016 PRESCRIP TRANSMIT VIA ERX SY CPT-4: G8553 07/06/2016 FLU VACC PRSV FREE INC ANTIG 65 AND OLDER CPT-4: 41030 06/13/2016 PNEUMOCOCCAL VACC 13 OLIVIA IM CPT-4: 27565 06/13/2016 ADMIN INFLUENZA VIRUS VAC CPT-4: G0008 06/13/2016 ADMIN PNEUMOCOCCAL VACCINE CPT-4: G0009 06/13/2016 CERUM REMOVAL CPT-4: 68185 04/05/2016 PRESCRIP TRANSMIT VIA ERX SY CPT-4: G8553 04/03/2016 ROUTINE VENIPUNCTURE CPT-4: 05952 03/06/2016 ASSAY OF FREE THYROXINE CPT-4: 90113 03/06/2016 ASSAY THYROID STIM HORMONE CPT-4: 25238 03/06/2016 COMPREHEN METABOLIC PANEL CPT-4: 29806 03/06/2016 COMPLETE CBC W/AUTO DIFF WBC CPT-4: 39803 03/06/2016 LIPID PANEL CPT-4: 21343 03/06/2016 ASSAY OF PSA TOTAL CPT-4: 70524 03/06/2016 TESTOSTERONE TOTAL - MALE CPT-4: 49500 03/06/2016 A1C HPLC CPT-4: 00578 03/06/2016 ASSAY OF IRON CPT-4: 84533 03/06/2016 VITAMIN B-12 CPT-4: 95078 03/06/2016 INJ TENDON SHEATH/LIGAMENT CPT-4: 02264 02/17/2016 TRIAMCINOLONE ACET INJ NOS CPT-4: J3301 02/17/2016 DEXAMETHASONE SODIUM PHOS CPT-4: J1100 02/17/2016 PRESCRIP TRANSMIT VIA ERX SY CPT-4: G8553 01/31/2016 PRESCRIP TRANSMIT VIA ERX SY CPT-4: G8553 12/30/2015 PRESCRIP TRANSMIT VIA ERX SY CPT-4: G8553 12/06/2015 PRESCRIP TRANSMIT VIA ERX SY CPT-4: G8553 11/15/2015 PPPS, subseq visit CPT-4: G0439 10/05/2015 MICROALBUMIN QUANTITATIVE CPT-4: 39011 10/05/2015 PROTEIN/CREAT URINE WITH RATIO CPT-4: 10145|44311 6 ROUTINE VENIPUNCTURE CPT-4: 12295 07/01/2015 ASSAY OF FREE THYROXINE CPT-4: 29140 07/01/2015 ASSAY THYROID STIM HORMONE CPT-4: 94193 07/01/2015 COMPLETE CBC W/AUTO DIFF WBC CPT-4: 98003 07/01/2015 LIPID PANEL CPT-4: 53104 07/01/2015 ASSAY OF PSA TOTAL CPT-4: 73879 07/01/2015 AEROBIC WOUND CULTURE & STN CPT-4: 76443 06/28/2015 PRESCRIP TRANSMIT VIA ERX SY CPT-4: G8553 06/28/2015 AEROBIC WOUND CULTURE & STN CPT-4: 65165 06/03/2015 PRESCRIP TRANSMIT VIA ERX SY CPT-4: G8553 06/03/2015 ROUTINE VENIPUNCTURE CPT-4: 75745 06/01/2015 COMPREHEN METABOLIC PANEL CPT-4: 94371 06/01/2015 A1C HPLC CPT-4: 97641 06/01/2015 COMPREHEN METABOLIC PANEL CPT-4: 25036 02/25/2015 A1C HPLC CPT-4: 14824 02/25/2015 DESTRUCT PREMALG LESION (Cryosurgery) CPT-4: 52747 PROTEIN/CREAT URINE WITH RATIO CPT-4: 99904|04518 5 MICROALBUMIN QUANTITATIVE CPT-4: 20259 10/27/2014 INFLUENZA ASSAY W/OPTIC CPT-4: 97205 10/21/2014 PRESCRIP TRANSMIT VIA ERX SY CPT-4: G8553 10/06/2014 PRESCRIP TRANSMIT VIA ERX SY CPT-4: G8553 09/21/2014 PRESCRIP TRANSMIT VIA ERX SY CPT-4: G8553 09/02/2014 MICROALBUMIN QUANTITATIVE CPT-4: 37061 08/27/2014 PROTEIN/CREAT URINE WITH RATIO CPT-4: 65287|30970 4 PPPS, subseq visit CPT-4: G0439 08/10/2014 ROUTINE VENIPUNCTURE CPT-4: 54780 08/05/2014 ASSAY OF FREE THYROXINE CPT-4: 85479 08/05/2014 ASSAY THYROID STIM HORMONE CPT-4: 82898 08/05/2014 COMPREHEN METABOLIC PANEL CPT-4: 18115 08/05/2014 COMPLETE CBC W/AUTO DIFF WBC CPT-4: 50680 08/05/2014 LIPID PANEL CPT-4: 85384 08/05/2014 A1C HPLC CPT-4: 40251 08/05/2014 FLUZONE, 5ML (Medicare) CPT-4: Q2038 08/05/2014 ADMIN INFLUENZA VIRUS VAC CPT-4: G0008 08/05/2014 METHYLPREDNISOLONE 40 MG INJ CPT-4: J1030 12/16/2013 TRIAMCINOLONE ACET INJ NOS CPT-4: J3301 12/16/2013 DRAIN/INJECT JOINT/BURSA CPT-4: 59211 12/16/2013 PRESCRIP TRANSMIT VIA ERX SY CPT-4: G8553 10/09/2013 THER/PROPH/DIAG INJ SC/IM CPT-4: 87933 09/18/2013 METHYLPREDNISOLONE 40 MG INJ CPT-4: J1030 09/18/2013 TRIAMCINOLONE ACET INJ NOS CPT-4: J3301 09/18/2013 PRESCRIP TRANSMIT VIA ERX SY CPT-4: G8553 09/18/2013 PRESCRIP TRANSMIT VIA ERX SY CPT-4: G8553 08/13/2013 ROUTINE VENIPUNCTURE CPT-4: 98489 06/25/2013 ASSAY OF FREE THYROXINE CPT-4: 70112 06/25/2013 ASSAY THYROID STIM HORMONE CPT-4: 18335 06/25/2013 COMPREHEN METABOLIC PANEL CPT-4: 55545 06/25/2013 COMPLETE CBC W/AUTO DIFF WBC CPT-4: 38734 06/25/2013 LIPID PANEL CPT-4: 22109 06/25/2013 A1C GLYCOSYLATED HEMOGLOBIN TEST CPT-4: 38610 013 ROUTINE VENIPUNCTURE CPT-4: 39582 04/09/2013 COMPLETE CBC W/AUTO DIFF WBC CPT-4: 32504 04/09/2013 MYCOPLASMA ANTIBODY, IFA CPT-4: 93309P1 04/09/2013 ROUTINE VENIPUNCTURE CPT-4: 83146 02/11/2013 ASSAY OF FREE THYROXINE CPT-4: 77508 02/11/2013 ASSAY THYROID STIM HORMONE CPT-4: 47014 02/11/2013 COMPREHEN METABOLIC PANEL CPT-4: 08789 02/11/2013 COMPLETE CBC W/AUTO DIFF WBC CPT-4: 93729 02/11/2013 VITAMIN B 12 FOLIC ACID CPT-4: 13812|19464 02/11/2013 C-REACTIVE PROTEIN CPT-4: 35347 02/11/2013 A1C GLYCOSYLATED HEMOGLOBIN TEST CPT-4: 65521 013 ASSAY OF BLOOD/URIC ACID CPT-4: 35989 02/11/2013 CEFTRIAXONE SODIUM INJECTION CPT-4: J0696 01/31/2013 THER/PROPH/DIAG INJ SC/IM CPT-4: 44023 01/31/2013 THER/PROPH/DIAG INJ SC/IM CPT-4: 16057 01/31/2013 METHYLPREDNISOLONE 40 MG INJ CPT-4: J1030 01/31/2013 TRIAMCINOLONE ACET INJ NOS CPT-4: J3301 01/31/2013 ROUTINE VENIPUNCTURE CPT-4: 20068 09/19/2012 COMPREHEN METABOLIC PANEL CPT-4: 58435 09/19/2012 LIPID PANEL CPT-4: 29336 09/19/2012 A1C GLYCOSYLATED HEMOGLOBIN TEST CPT-4: 94275 012 PNEUMOCOCCAL VACC 23 OLIVIA IM CPT-4: 31564 07/10/2012 FLUZONE, 5ML (Medicare) CPT-4: Q2038 07/10/2012 ADMIN INFLUENZA VIRUS VAC CPT-4: G0008 07/10/2012 ADMIN PNEUMOCOCCAL VACCINE CPT-4: G0009 07/10/2012 ROUTINE VENIPUNCTURE CPT-4: 43852 05/06/2012 ASSAY OF FREE THYROXINE CPT-4: 60534 05/06/2012 ASSAY THYROID STIM HORMONE CPT-4: 58371 05/06/2012 COMPREHEN METABOLIC PANEL CPT-4: 97039 05/06/2012 COMPLETE CBC W/AUTO DIFF WBC CPT-4: 61414 05/06/2012 LIPID PANEL CPT-4: 39997 05/06/2012 A1C GLYCOSYLATED HEMOGLOBIN TEST CPT-4: 54165 012 IMMUNIZATION ADMIN CPT-4: 14144 02/05/2012 FLUZONE, 5ML (Medicare) CPT-4: Q2038 08/10/2011 ADMIN INFLUENZA VIRUS VAC CPT-4: G0008 08/10/2011 ROUTINE VENIPUNCTURE CPT-4: 16930 07/26/2011 ASSAY OF FREE THYROXINE CPT-4: 15533 07/26/2011 ASSAY THYROID STIM HORMONE CPT-4: 45226 07/26/2011 COMPREHEN METABOLIC PANEL CPT-4: 63770 07/26/2011 COMPLETE CBC W/AUTO DIFF WBC CPT-4: 08032 07/26/2011 LIPID PANEL CPT-4: 83944 07/26/2011 A1C GLYCOSYLATED HEMOGLOBIN TEST CPT-4: 82929 011 ASSAY OF PSA TOTAL CPT-4: 32741 07/26/2011 ROUTINE VENIPUNCTURE CPT-4: 43774 01/19/2011 ASSAY OF NATRIURETIC PEPTIDE CPT-4: 03175 01/19/2011 THER/PROPH/DIAG INJ SC/IM CPT-4: 24496 01/19/2011 CEFTRIAXONE SODIUM INJECTION CPT-4: J0696 01/19/2011 METHYLPREDNISOLONE INJECTION CPT-4: J2930 01/19/2011 THER/PROPH/DIAG INJ SC/IM CPT-4: 47457 01/19/2011 THER/PROPH/DIAG INJ SC/IM CPT-4: 78379 01/18/2011 CEFTRIAXONE SODIUM INJECTION CPT-4: J0696 01/18/2011 METHYLPREDNISOLONE INJECTION CPT-4: J2930 01/18/2011 THER/PROPH/DIAG INJ SC/IM CPT-4: 40687 01/18/2011 THER/PROPH/DIAG INJ SC/IM CPT-4: 73111 12/21/2010 TESTOSTERONE CYPIONAT 100 MG CPT-4: J1070 12/21/2010 ROUTINE VENIPUNCTURE CPT-4: 59300 12/19/2010 TESTOSTERONE TOTAL - MALE CPT-4: 37660 12/19/2010 ROUTINE VENIPUNCTURE CPT-4: 71320 12/07/2010 COMPLETE CBC W/AUTO DIFF WBC CPT-4: 51008 12/07/2010 COMPREHEN METABOLIC PANEL CPT-4: 79541 12/07/2010 LIPID PANEL CPT-4: 78977 12/07/2010 A1C GLYCOSYLATED HEMOGLOBIN TEST CPT-4: 07075 011 ASSAY OF PSA TOTAL CPT-4: 37046 12/07/2010 ROUTINE VENIPUNCTURE CPT-4: 73487 04/05/2010 PRESCRIP TRANSMIT VIA ERX SY CPT-4: G8553 04/05/2010 ROUTINE VENIPUNCTURE CPT-4: 47312 01/13/2010 METHYLPREDNISOLONE INJECTION CPT-4: J2930 12/22/2009 THER/PROPH/DIAG INJ SC/IM CPT-4: 69295 12/22/2009 THER/PROPH/DIAG INJ SC/IM CPT-4: 50597 12/22/2009 CEFTRIAXONE SODIUM INJECTION CPT-4: J0696 12/22/2009 ROUTINE VENIPUNCTURE CPT-4: 88188 12/22/2009 COMPLETE CBC W/AUTO DIFF WBC CPT-4: 41129 12/22/2009 RBC SED RATE, AUTOMATED CPT-4: 90125 12/22/2009 RPR FE/E/EN/L/M 20.1-30.0 CM CPT-4: 60644 12/22/2009 EKG FOR INITIAL PREVENT EXAM CPT-4: G0403 12/22/2009 THER/PROPH/DIAG INJ SC/IM CPT-4: 74885 12/16/2009 KETOROLAC TROMETHAMINE INJ CPT-4: J1885 12/16/2009 [...] 1: 126/68 Code: 8480-6 BMI: 30.2 Code: 82889-3 Heart Rate 1: 92 bpm Height: 6' Respiratory Rate: 22 bpm SpO2: 94% Tempera ture: 36.9 (C) / 98.5 (F) Weight: 223 lbs 08/21/2018 Blood Pressure 1: 160/70 Code: 8480-6 Heart Rate 1: 79 bpm Respiratory Rate: 20 bpm SpO2: 94% Temperature: 36.7 (C) / 98.0 (F) We ight: 226 lbs 8 oz 08/07/2018 Blood Pressure 1: 138/70 Code: 8480-6 BMI: 30.1 Code: 11276-9 Heart Rate 1: 80 bpm Height: 6' Respiratory Rate: 20 bpm SpO2: 94% Tempera ture: 36.9 (C) / 98.5 (F) Weight: 222 lbs 05/23/2018 Blood Pressure 1: 148/66 Code: 8480-6 BMI: 30.0 Code: 73054-9 Heart Rate 1: 96 bpm Height: 6' Respiratory Rate: 22 bpm SpO2: 94% Tempera ture: 37.3 (C) / 99.1 (F) Weight: 221 lbs 05/02/2018 Blood Pressure 1: 146/78 Code: 8480-6 BMI: 29.6 Code: 36399-5 Heart Rate 1: 78 bpm Height: 6' Respiratory Rate: 26 bpm SpO2: 94% Tempera ture: 35.7 (C) / 96.2 (F) Weight: 218 lbs 04/29/2018 Blood Pressure 1: 142/62 Code: 8480-6 BMI: 28.6 Code: 73256-7 Heart Rate 1: 82 bpm Height: 6' Respiratory Rate: 22 bpm SpO2: 98% Tempera ture: 36.4 (C) / 97.6 (F) Weight: 211 lbs 04/22/2018 Blood Pressure 1: 126/64 Code: 8480-6 BMI: 30.0 Code: 75450-8 Heart Rate 1: 96 bpm Height: 6' [...] 1: 144/78 Code: 8480-6 BMI: 30.7 Code: 98168-4 Heart Rate 1: 92 bpm Height: 6' Respiratory Rate: 28 bpm SpO2: 94% Tempera ture: 36.9 (C) / 98.4 (F) Weight: 226 lbs 12/28/2017 Blood Pressure 1: 136/80 Code: 8480-6 Heart Rate 1: 92 bpm Respiratory Rate: 28 bpm SpO2: 94% Temperature: 36.7 (C) / 98.1 (F) 12/21/2017 Blood Pressure 1: 146/84 Code: 8480-6 BMI: 31.1 Code: 15298-9 Heart Rate 1: 84 bpm Height: 6' [...] 1: 142/64 Code: 8480-6 BMI: 31.3 Code: 52423-5 Heart Rate 1: 98 bpm Height: 6' Respiratory Rate: 24 bpm SpO2: 94% Tempera ture: 36.4 (C) / 97.6 (F) Weight: 231 lbs 10/17/2017 Blood Pressure 1: 140/68 Code: 8480-6 BMI: 31.7 Code: 04621-7 Heart Rate 1: 88 bpm Height: 6' Respiratory Rate: 20 bpm SpO2: 94% Tempera ture: 36.8 (C) / 98.3 (F) Weight: 234 lbs 08/02/2017 Blood Pressure 1: 142/80 Code: 8480-6 BMI: 31.1 Code: 50290-4 Heart Rate 1: 86 bpm Height: 6' Respiratory Rate: 20 bpm SpO2: 90% Tempera ture: 35.9 (C) / 96.7 (F) Weight: 229 lbs 07/02/2017 Blood Pressure 1: 146/64 Code: 8480-6 BMI: 29.6 Code: 37356-4 Heart Rate 1: 96 bpm Height: 6' Respiratory Rate: 20 bpm Temperature: 36 .4 (C) / 97.6 (F) Weight: 218 lbs 05/29/2017 Blood Pressure 1: 152/68 Code: 8480-6 BMI: 31.5 Code: 99910-9 Heart Rate 1: 100 bpm Height: 6' Respiratory Rate: 20 bpm SpO2: 92% Tempera ture: 36.9 (C) / 98.4 (F) Weight: 232 lbs 02/01/2017 Blood Pressure 1: 146/64 Code: 8480-6 BMI: 30.7 Code: 92606-1 Heart Rate 1: 76 bpm Height: 6' Respiratory Rate: 20 bpm SpO2: 95% Tempera ture: 36.8 (C) / 98.2 (F) Weight: 226 lbs 01/29/2017 Blood Pressure 1: 146/78 Code: 8480-6 Heart Rate 1: 84 bpm Respiratory Rate: 20 bpm SpO2: 96% Temperature: 36.1 (C) / 97.0 (F) We ight: 226 lbs 12/21/2016 Blood Pressure 1: 126/60 Code: 8480-6 BMI: 30.8 Code: 80486-0 Heart Rate 1: 88 bpm Height: 6' Respiratory Rate: 22 bpm SpO2: 94% Tempera ture: 36.7 (C) / 98.0 (F) Weight: 227 lbs 12/14/2016 Blood Pressure 1: 126/70 Code: 8480-6 BMI: 29.8 Code: 52145-6 Heart Rate 1: 92 bpm Height: 6' Respiratory Rate: 22 bpm SpO2: 93% Tempera ture: 36.8 (C) / 98.2 (F) Weight: 220 lbs 11/14/2016 Blood Pressure 1: 128/62 Code: 8480-6 Heart Rate 1: 100 bpm Respiratory Rate: 20 bpm SpO2: 96% Temperature: 36.6 (C) / 97.8 (F) We ight: 220 lbs 10/31/2016 Blood Pressure 1: 142/60 Code: 8480-6 BMI: 30.1 Code: 27522-8 Heart Rate 1: 112 bpm Height: 6' Respiratory Rate: 24 bpm SpO2: 93% Tempera ture: 37.1 (C) / 98.7 (F) Weight: 222 lbs 10/03/2016 Blood Pressure 1: 136/78 Code: 8480-6 Heart Rate 1: 106 bpm Respiratory Rate: 24 bpm SpO2: 93% Temperature: 36.6 (C) / 97.8 (F) We ight: 221 lbs 09/04/2016 Blood Pressure 1: 112/44 Code: 8480-6 BMI: 30.1 Code: 22746-9 Heart Rate 1: 90 bpm Height: 6' Respiratory Rate: 20 bpm SpO2: 93% Tempera ture: 36.6 (C) / 97.9 (F) Weight: 222 lbs 08/22/2016 Blood Pressure 1: 142/68 Code: 8480-6 BMI: 30.4 Code: 19415-7 Heart Rate 1: 100 bpm Height: 6' Respiratory Rate: 24 bpm SpO2: 93% Tempera ture: 36.7 (C) / 98.1 (F) Weight: 224 lbs 08/10/2016 Blood Pressure 1: 134/60 Code: 8480-6 BMI: 30.2 Code: 76290-1 Heart Rate 1: 76 bpm Height: 6' [...] 1: 122/72 Code: 8480-6 BMI: 30.7 Code: 08362-1 Heart Rate 1: 96 bpm Height: 6' Respiratory Rate: 22 bpm SpO2: 96% Tempera ture: 35.9 (C) / 96.7 (F) Weight: 226 lbs 04/03/2016 Blood Pressure 1: 146/64 Code: 8480-6 BMI: 30.8 Code: 17835-7 Heart Rate 1: 76 bpm Height: 6' Respiratory Rate: 20 bpm Temperature: 36 .8 (C) / 98.2 (F) Weight: 227 lbs 03/02/2016 Blood Pressure 1: 148/60 Code: 8480-6 BMI: 31.1 Code: 93977-9 Heart Rate 1: 80 bpm Height: 6' Respiratory Rate: 22 bpm SpO2: 94% Tempera ture: 36.6 (C) / 97.8 (F) Weight: 229 lbs 02/17/2016 Blood Pressure 1: 132/60 Code: 8480-6 BMI: 31.3 Code: 51496-6 Heart Rate 1: 80 bpm Height: 6' Respiratory Rate: 20 bpm Temperature: 36 .9 (C) / 98.4 (F) Weight: 231 lbs 02/14/2016 Blood Pressure 1: 126/70 Code: 8480-6 BMI: 31.3 Code: 27107-8 Heart Rate 1: 80 bpm Height: 6' Respiratory Rate: 24 bpm SpO2: 95% Tempera ture: 36.9 (C) / 98.5 (F) Weight: 231 lbs 01/31/2016 Blood Pressure 1: 136/60 Code: 8480-6 Heart Rate 1: 76 bpm Respiratory Rate: 22 bpm Temperature: 37.0 (C) / 98.6 (F) Weight: 230 lbs 12/30/2015 Blood Pressure 1: 128/58 Code: 8480-6 BMI: 31.2 Code: 03134-1 Heart Rate 1: 80 bpm Height: 6' Respiratory Rate: 20 bpm Temperature: 36 .8 (C) / 98.2 (F) Weight: 230 lbs 12/16/2015 Blood Pressure 1: 122/60 Code: 8480-6 BMI: 32.0 Code: 28791-1 Heart Rate 1: 84 bpm Height: 6' Respiratory Rate: 24 bpm Temperature: 37 .1 (C) / 98.7 (F) Weight: 236 lbs 12/06/2015 Blood Pressure 1: 162/74 Code: 8480-6 BMI: 32.5 Code: 42285-9 Heart Rate 1: 90 bpm Height: 6' Respiratory Rate: 20 bpm SpO2: 96% Tempera ture: 36.4 (C) / 97.6 (F) Weight: 240 lbs 11/15/2015 Blood Pressure 1: 166/80 Code: 8480-6 BMI: 32.4 Code: 09353-6 Heart Rate 1: 92 bpm Height: 6' Respiratory Rate: 28 bpm Temperature: 36 .5 (C) / 97.7 (F) Weight: 239 lbs 10/05/2015 Blood Pressure 1: 146/76 Code: 8480-6 BMI: 32.4 Code: 33261-0 Heart Rate 1: 88 bpm Height: 6' Respiratory Rate: 28 bpm Temperature: 37 .1 (C) / 98.7 (F) Weight: 239 lbs 07/22/2015 Blood Pressure 1: 144/68 Code: 8480-6 BMI: 31.9 Code: 56973-2 Heart Rate 1: 88 bpm Height: 6' [...] 1: 142/64 Code: 8480-6 BMI: 32.1 Code: 41654-1 Heart Rate 1: 80 bpm Height: 6' Respiratory Rate: 18 bpm Temperature: 36 .4 (C) / 97.6 (F) Weight: 237 lbs 06/07/2015 Blood Pressure 1: 164/58 Code: 8480-6 BMI: 32.1 Code: 20641-5 Heart Rate 1: 88 bpm Height: 6' Respiratory Rate: 20 bpm Temperature: 36 .6 (C) / 97.9 (F) Weight: 237 lbs 06/03/2015 Blood Pressure 1: 152/64 Code: 8480-6 BMI: 32.1 Code: 37220-4 Heart Rate 1: 96 bpm Height: 6' Respiratory Rate: 20 bpm Temperature: 37 .4 (C) / 99.3 (F) Weight: 237 lbs 06/01/2015 Blood Pressure 1: 136/70 Code: 8480-6 BMI: 31.7 Code: 34512-7 Heart Rate 1: 72 bpm Height: 6' Respiratory Rate: 22 bpm SpO2: 94% Tempera ture: 36.6 (C) / 97.9 (F) Weight: 234 lbs 02/25/2015 Blood Pressure 1: 146/80 Code: 8480-6 BMI: 32.4 Code: 52660-7 Heart Rate 1: 84 bpm Height: 6' Respiratory Rate: 28 bpm Temperature: 36 .7 (C) / 98.0 (F) Weight: 239 lbs 10/27/2014 Blood Pressure 1: 168/70 Code: 8480-6 BMI: 32.0 Code: 64029-2 Heart Rate 1: 80 bpm Height: 6' Respiratory Rate: 30 bpm SpO2: 98% Tempera ture: 36.4 (C) / 97.6 (F) Weight: 236 lbs 10/21/2014 Blood Pressure 1: 152/58 Code: 8480-6 BMI: 32.1 Code: 99140-5 Heart Rate 1: 78 bpm Height: 6' Respiratory Rate: 20 bpm Temperature: 37 .8 (C) / 100.1 (F) Weight: 237 lbs 10/06/2014 Blood Pressure 1: 132/64 Code: 8480-6 BMI: 32.5 Code: 57902-1 Heart Rate 1: 88 bpm Height: 6' Respiratory Rate: 32 bpm SpO2: 94% Tempera ture: 36.8 (C) / 98.2 (F) Weight: 240 lbs 09/21/2014 Blood Pressure 1: 134/68 Code: 8480-6 BMI: 32.4 Code: 12415-8 Heart Rate 1: 96 bpm Height: 6' Respiratory Rate: 30 bpm Temperature: 36 .7 (C) / 98.1 (F) Weight: 239 lbs 09/08/2014 Blood Pressure 1: 128/74 Code: 8480-6 BMI: 32.4 Code: 59822-4 Heart Rate 1: 82 bpm Height: 6' Respiratory Rate: 28 bpm SpO2: 93% Tempera ture: 36.6 (C) / 97.8 (F) Weight: 239 lbs 09/02/2014 Blood Pressure 1: 164/78 Code: 8480-6 Heart Rate 1: 86 bpm Respiratory Rate: 22 bpm SpO2: 96% Temperature: 36.1 (C) / 97.0 (F) We ight: 239 lbs 08/10/2014 Blood Pressure 1: 152/60 Code: 8480-6 BMI: 32.8 Code: 22241-1 Heart Rate 1: 80 bpm Height: 6' [...] 1: 146/80 Code: 8480-6 BMI: 33.9 Code: 24689-1 Heart Rate 1: 80 bpm Height: 6' [...] 1: 148/78 Code: 8480-6 BMI: 30.5 Code: 04680-6 Heart Rate 1: 84 bpm Height: 6' Respiratory Rate: 28 bpm SpO2: 97% Tempera ture: 36.4 (C) / 97.5 (F) Weight: 225 lbs 08/06/2013 Blood Pressure 1: 158/70 Code: 8480-6 Heart Rate 1: 110 bpm Respiratory Rate: 22 bpm SpO2: 88% Temperature: 39.7 (C) / 103.4 (F) W eight: 07/16/2013 Blood Pressure 1: 148/82 Code: 8480-6 BMI: 31.9 Code: 40998-4 Heart Rate 1: 80 bpm Height: 6' Respiratory Rate: 20 bpm Temperature: 36 .6 (C) / 97.9 (F) Weight: 235 lbs 04/09/2013 Blood Pressure 1: 142/78 Code: 8480-6 BMI: 31.5 Code: 68254-2 Heart Rate 1: 88 bpm Height: 6' Respiratory Rate: 32 bpm SpO2: 95% Tempera ture: 37.0 (C) / 98.6 (F) Weight: 232 lbs 02/11/2013 Blood Pressure 1: 146/70 Code: 8480-6 Heart Rate 1: 88 bpm Respiratory Rate: 20 bpm Temperature: 36.8 (C) / 98.3 (F) Weight: 230 lbs 01/31/2013 Blood Pressure 1: 128/70 Code: 8480-6 BMI: 31.6 Code: 63117-0 Heart Rate 1: 84 bpm Height: 6' Respiratory Rate: 24 bpm SpO2: 92% Tempera ture: 36.7 (C) / 98.0 (F) Weight: 233 lbs 01/20/2013 Blood Pressure 1: 148/64 Code: 8480-6 BMI: 31.6 Code: 87002-5 Heart Rate 1: 68 bpm Height: 6' Temperature: 36.1 (C) / 97.0 (F) Weight: 233 lbs 12/19/2012 Blood Pressure 1: 128/68 Code: 8480-6 BMI: 32.0 Code: 32610-6 Heart Rate 1: 64 bpm Height: 6' Temperature: 36.7 (C) / 98.0 (F) Weight: 236 lbs 10/21/2012 Blood Pressure 1: 142/64 Code: 8480-6 BMI: 30.9 Code: 61191-6 Heart Rate 1: 74 bpm Height: 6' Temperature: 36.2 (C) / 97.1 (F) Weight: 228 lbs 09/18/2012 Blood Pressure 1: 126/60 Code: 8480-6 BMI: 31.3 Code: 72329-4 Heart Rate 1: 88 bpm Height: 6' Respiratory Rate: 20 bpm Temperature: 36 .5 (C) / 97.7 (F) Weight: 231 lbs 08/28/2012 Blood Pressure 1: 132/68 Code: 8480-6 BMI: 31.5 Code: 14249-0 Heart Rate 1: 92 bpm Height: 6' Respiratory Rate: 30 bpm SpO2: 94% Tempera ture: 37.1 (C) / 98.7 (F) Weight: 232 lbs 07/10/2012 Blood Pressure 1: 118/70 Code: 8480-6 BMI: 30.5 Code: 01185-6 Heart Rate 1: 72 bpm Height: 6' Respiratory Rate: 24 bpm SpO2: 96% Tempera ture: 36.7 (C) / 98.0 (F) Weight: 225 lbs 05/09/2012 Blood Pressure 1: 124/68 Code: 8480-6 BMI: 29.8 Code: 00438-0 Heart Rate 1: 72 bpm Height: 6' Respiratory Rate: 20 bpm Temperature: 36 .8 (C) / 98.2 (F) Weight: 220 lbs 10/02/2011 Blood Pressure 1: 140/82 Code: 8480-6 BMI: 30.7 Code: 81614-5 Heart Rate 1: 68 bpm Height: 6' Temperature: 36.7 (C) / 98.0 (F) Weight: 226 lbs 08/07/2011 Blood Pressure 1: 122/68 Code: 8480-6 BMI: 30.5 Code: 23544-4 Heart Rate 1: 72 bpm Height: 6' [...] 1: 140/78 Code: 8480-6 BMI: 31.9 Code: 85641-6 Heart Rate 1: 84 bpm Height: 6' Temperature: 36.6 (C) / 97.8 (F) Weight: 235 lbs 12/22/2009 Blood Pressure 1: 140/74 Code: 8480-6 BMI: 31.9 Code: 04190-5 Heart Rate 1: 94 bpm Height: 6' SpO2: 92% Temperature: 35.7 (C) / 96.2 (F) Weight: 235 lbs 12/13/2009 Blood Pressure 1: 146/80 Code: 8480-6 BMI: 33.0 Code: 31397-6 Heart Rate 1: 86 bpm Height: 6' [...] shot follow up 05/08/2019 follow up 04/07/2019 [facility] dizziness 03/24/2019 dizziness 03/21/2019 sore throat 03/13/2019 Patient finished zit hromax last night and has one dose of prednisone left follow up 03/10/2019 ER [facility]---patient cu rrently taking zithromax, prednisone and breathing [...] fighting constantly with her. follow up 04/22/2018 [facility] fwup follow up 01/28/2018 knee pain 01/23/2018 nocturia 01/02/2018 dyspnea 12/28/2017 follow up 12/21/2017 chest congestion 12/17/2017 knee pain 12/11/2017 mole check 11/07/2017 follow up 10/17/2017 ER fwup cough 08/02/2017 injection(s) 07/24/2017 Pneumovax follow up 07/02/2017 Patient recently ariel campos on [facility], but never picked up. He was also given prednisone/Zpack on 06/16/17 from walk in clinic. Patient is also in consult with Dr Benjamin. patient dc'd from hospital last week and reports that he is still taking the antibiotic that was prescribed to him (augmentin) and finished out the prednisone. 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 follow up 05/29/2017 Discuss Low Back [...] nightly. Patient has just been discharged from [place] with Pneumonia. Currently on Levaquin once daily. [...] history would like evaluated follow up 06/13/2016 [facility] COPD w/exac 06/01/2016 Patient states chest tightness, shortness of breath, and fatigue have worsened in the last 2-3 weeks with exertion. otalgia 04/26/2016 cerumen 04/05/2016 Patient has been maximiliano ing ear drops follow up 04/03/2016 2mo fwup follow up 03/13/2016 Patient here for [facility] on medication education for insulin use [...] 09/21/2014 Hospital fwup follow up 09/08/2014 Hospital [facility] cough 09/02/2014 well man exam [...] 12/13/2009 Encounters Encounter Performer Location Codes Date ([id number]) OFFICE/OUTPATIENT VISIT EST Diagnosis: Noncompliance with diabetes treatment[ICD10: Z91.19] Diagnosis: Insomnia[ICD10: G47.00] Diagnosis: Pain in right knee[ICD10: M25.561] Lita Barakat [facility] CPT-4: 87582 12/22/2019 ([id number]) OFFICE/OUTPATIENT VISIT EST Diagnosis: Chronic respiratory failure with hypercapnia[ICD10: J96.12] Diagnosis: Chronic airway obstruction, not elsewhere classified[ICD10: J44.9] Diagnosis: Basal cell carcinoma, face[ICD10: C44.310] Lita BARAKAT [facility] CPT-4: 70997 11/12/2019 ([id number]) OFFICE/OUTPATIENT VISIT EST Diagnosis: Chronic obstructive pulmonary disease, unspecified[ICD10: J44.9] Diagnosis: Right thyroid nodule[ICD10: E04.1] [facility] 86693 09/11/2019 ([id number]) OFFICE/OUTPATIENT VISIT EST Diagnosis: Chronic bronchitis[ICD10: J42] 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] Diagnosis: FLU VACCINE[ICD10: Z23] [facility] CPT-4: 27173 08/07/2019 ([id number]) OFFICE/OUTPATIENT VISIT EST Diagnosis: Chronic obstructive pulmonary disease with (acute) exacerbation[ICD10: J44.1] [facility] CPT- 4: 87021 07/14/2019 ([id number]) OFFICE/OUTPATIENT VISIT EST Diagnosis: Primary insomnia[ICD10: F51.01] Diagnosis: Dyspepsia and other specified disorders of function of stomach[ICD10: K31.89] [facility]PT[facility]: 50605 07/01/2019 ([id number]) OFFICE/OUTPATIENT VISIT EST Diagnosis: Epigastric pain[ICD10: R10.13] Diagnosis: Nausea[ICD10: R11.0] Diagnosis: Weight loss[ICD10: R63.4] Lita [facility] CPT-4: 41017 06/24/2019 ([id number]) OFFICE/OUTPATIENT VISIT EST Diagnosis: Chronic obstructive pulmonary disease, unspecified[ICD10: J44.9] Diagnosis: Chronic insomnia[ICD10: F51.04] Diagnosis: Anemia[ICD10: D64.9] Diagnosis: Diplopia[ICD10: H53.2] Diagnosis: [place][ICD10: F30.9] [facility] CPT-[facility]: 22914 06/17/2019 ([id number]) NURSE/OUTPATIENT VISIT EST Diagnosis: Vitamin B12 deficiency anemia, unspecified[ICD10: D51.9] Lita [facility]AKAT [facility] CPT-4: 65626 06/10/2019 ([id number]) NURSE/OUTPATIENT VISIT EST Diagnosis: Vitamin B12 deficiency anemia, unspecified[ICD10: D51.9] Lita [facility] CPT-4: 33134 06/02/2019 ([id number]) NURSE/OUTPATIENT VISIT EST Diagnosis: Vitamin B12 deficiency anemia, unspecified[ICD10: D51.9] Lita [facility] CPT-4: 36763 05/27/2019 ([id number]) NURSE/OUTPATIENT VISIT EST Diagnosis: Vitamin B12 deficiency anemia, unspecified[ICD10: D51.9] Lita [facility] CPT-4: 49875 05/12/2019 ([id number]) OFFICE/OUTPATIENT VISIT EST Diagnosis: Restless legs syndrome[ICD10: G25.81] Diagnosis: Primary insomnia[ICD10: F51.01] Diagnosis: Anemia, unspecified[ICD10: D64.9] Diagnosis: Type 2 diabetes mellitus with hyperglycemia[ICD10: E11.65] Diagnosis: Vitamin D deficiency, unspecified[ICD10: E55.9] Lita [facility] CPT-4: 44976 05/08/2019 ([id number]) OFFICE/OUTPATIENT VISIT EST Diagnosis: Pain in right knee[ICD10: M25.561] Diagnosis: Restless legs syndrome[ICD10: G25.81] Diagnosis: Insomnia, unspecified[ICD10: G47.00] Lita [facility] CPT-4: 73618 04/07/2019 ([id number]) NO CHARGE Diagnosis: Chronic obstructive pulmonary disease with (acute) exacerbation[ICD10: J44.1] Diagnosis: Dizziness and giddiness[ICD10: R42] Diagnosis: Generalized anxiety disorder[ICD10: F41.1] Autumn [facility] CPT-4: 28238 03/24/2019 ([id number]) OFFICE/OUTPATIENT VISIT EST Diagnosis: Chronic obstructive pulmonary disease with (acute) exacerbation[ICD10: J44.1] Diagnosis: Dizziness and giddiness[ICD10: R42] Autumn [facility]AKAT [facility] CPT-4: 56816 03/21/2019 ([id number]) OFFICE/OUTPATIENT VISIT EST Diagnosis: Candidal stomatitis[ICD10: B37.0] Lita [facility] CPT-4: 48253 03/13/2019 ([id number]) OFFICE/OUTPATIENT VISIT EST Diagnosis: Chronic obstructive pulmonary disease with acute lower respiratory infection[ICD10: J44.0] Diagnosis: Restless legs syndrome[ICD10: G25.81] Lita [facility] CPT-4: 47052 03/10/2019 ([id number]) OFFICE/OUTPATIENT VISIT EST Diagnosis: Restless legs syndrome[ICD10: G25.81] Lita [facility] CPT-4: 76159 02/26/2019 ([id number]) OFFICE/OUTPATIENT VISIT EST Diagnosis: Primary insomnia[ICD10: F51.01] Diagnosis: Chronic obstructive pulmonary disease, unspecified[ICD10: J44.9] Lita [facility] CPT-4: 41143 02/13/2019 ([id number]) OFFICE/OUTPATIENT VISIT EST Diagnosis: Chronic obstructive pulmonary disease, unspecified[ICD10: J44.9] Diagnosis: Chronic respiratory failure with hypoxia[ICD10: J96.11] Diagnosis: Chronic respiratory failure with hypercapnia[ICD10: J96.12] Lita BARAKAT DO [facility] CPT-4: 62456 01/14/2019 ([id number]) OFFICE/OUTPATIENT VISIT EST Diagnosis: Chronic respiratory failure with hypoxia[ICD10: J96.11] Diagnosis: Patient's noncompliance with other medical treatment and regimen[ICD10: Z91.19] Diagnosis: Chronic obstructive pulmonary disease with (acute) exacerbation[ICD10: J44.1] Lita BARAKAT FMS [facility] CPT- 4: 59619 12/25/2018 ([id number]) OFFICE/OUTPATIENT VISIT EST Diagnosis: Essential (primary) hypertension[ICD10: I10] Diagnosis: Type 2 diabetes mellitus with hyperglycemia[ICD10: E11.65] Diagnosis: Hypothyroidism, unspecified[ICD10: E03.9] Diagnosis: Hyperlipidemia, unspecified[ICD10: E78.5] Diagnosis: Acute recurrent maxillary sinusitis[ICD10: J01.01] Ines Banerjee LITA DonovanFerdinand YUVAL FMS [facility] CPT-4: 60625 12/09/2018 ([id number]) OFFICE/OUTPATIENT VISIT EST Diagnosis: Candidal stomatitis[ICD10: B37.0] Lita Segura DonovanFerdinand YUVAL FMS [facility] CPT-4: 90124 12/05/2018 ([id number]) OFFICE/OUTPATIENT VISIT EST Diagnosis: Acute recurrent sinusitis, unspecified[ICD10: J01.91] Diagnosis: Pain in right knee[ICD10: M25.561] Lita GONZALES DonovanFerdinand YUVAL FMS [facility] CPT-4: 06988 10/23/2018 ([id number]) OFFICE/OUTPATIENT VISIT EST Diagnosis: Restless legs syndrome[ICD10: G25.81] Diagnosis: Basal cell carcinoma of skin of scalp and neck[ICD10: C44.41] Lita CRAWFORD DonovanFerdinand YUVAL [facility] CPT-4: 12496 08/21/2018 ([id number]) OFFICE/OUTPATIENT VISIT EST Diagnosis: Chronic obstructive pulmonary disease with acute lower respiratory infection[ICD10: J44.0] Diagnosis: Restless legs syndrome[ICD10: G25.81] Lita TRAN DonovanFerdinand YUVAL FMS [facility] CPT-4: 77589 08/07/2018 ([id number]) OFFICE/OUTPATIENT VISIT EST Diagnosis: Chronic obstructive pulmonary disease with acute lower respiratory infection[ICD10: J44.0] Lita CRAWFORD DonovanFerdinand YUVAL [facility] CPT-4: 14163 05/23/2018 ([id number]) OFFICE/OUTPATIENT VISIT EST Diagnosis: Candidal stomatitis[ICD10: B37.0] Lita Segura DonovanFerdinand YUVAL FMS [facility] CPT-4: 29444 05/02/2018 ([id number]) OFFICE/OUTPATIENT VISIT EST Diagnosis: Candidal stomatitis[ICD10: B37.0] Diagnosis: Other retention of urine[ICD10: R33.8] Diagnosis: Chronic obstructive pulmonary disease with acute lower respiratory infection[ICD10: J44.0] Autumn BARAKAT DO [facility] CPT-4: 65632 04/29/2018 ([id number]) OFFICE/OUTPATIENT VISIT EST Diagnosis: Chronic obstructive pulmonary disease with acute lower respiratory infection[ICD10: J44.0] Lita BARAKAT DO [facility] CPT-4: 05568 04/22/2018 ([id number]) OFFICE/OUTPATIENT VISIT EST Diagnosis: Unilateral primary osteoarthritis, right knee[ICD10: M17.11] Diagnosis: Squamous cell carcinoma of skin, unspecified[ICD10: C44.92] Lita BARAKAT DO [facility] CPT-4: 72209 01/28/2018 ([id number]) OFFICE/OUTPATIENT VISIT EST Diagnosis: Pain in right knee[ICD10: M25.561] Diagnosis: 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] Lita BARAKAT DO [facility] CPT-4: 35979 01/23/2018 ([id number]) OFFICE/OUTPATIENT VISIT EST Diagnosis: Urinary tract infection, site not specified[ICD10: N39.0] Diagnosis: Chronic obstructive pulmonary disease with acute lower respiratory infection[ICD10: J44.0] Lita BARAKAT DO [facility] CPT-4: 55980 01/02/2018 ([id number]) OFFICE/OUTPATIENT VISIT EST Diagnosis: Chronic obstructive pulmonary disease with (acute) exacerbation[ICD10: J44.1] Autumn BARAKAT DO [facility] CPT- 4: 80214 12/28/2017 ([id number]) OFFICE/OUTPATIENT VISIT EST Diagnosis: Acute bronchitis, unspecified[ICD10: J20.9] Autumn BARAKAT DO [facility] CPT-4: 68182 12/21/2017 ([id number]) OFFICE/OUTPATIENT VISIT EST Diagnosis: Chronic obstructive pulmonary disease with acute lower respiratory infection[ICD10: J44.0] Diagnosis: Pain in right knee[ICD10: M25.561] Autumn BARAKAT DO [facility] CPT-4: 09252 12/17/2017 ([id number]) OFFICE/OUTPATIENT VISIT EST Diagnosis: Laceration without foreign body of right hand, sequela[ICD10: S61.411S] Diagnosis: Restless legs syndrome[ICD10: G25.81] Lita BARAKAT [facility] CPT-4: 84289 10/17/2017 OFFICE/OUTPATIENT VISIT EST Diagnosis: Chronic obstructive pulmonary disease with acute lower respiratory infection[ICD10: J44.0] Autumn BARAKAT [facility] CPT-4: 09686 08/02/2017 ([id number]) OFFICE/OUTPATIENT VISIT EST Diagnosis: PNEUMOCOCCAL VACCINE[ICD10: Z23] Lita BARAKAT [facility] CPT-4: 26453 07/24/2017 OFFICE/OUTPATIENT VISIT EST Diagnosis: Chronic obstructive pulmonary disease with (acute) exacerbation[ICD10: J44.1] Autumn BARAKAT [facility] CPT- 4: 30931 07/02/2017 OFFICE/OUTPATIENT VISIT EST Diagnosis: Low back pain[ICD10: M54.5] Ruchi Buchanan LITA DonovanFerdinand Filiberto BRANDIN [facility] CPT-4: 91851 05/29/2017 ([id number]) OFFICE/OUTPATIENT VISIT EST Diagnosis: Essential (primary) hypertension[ICD10: I10] Diagnosis: Hypothyroidism, unspecified[ICD10: E03.9] Diagnosis: Dizziness and giddiness[ICD10: R42] Diagnosis: Other abnormality of red blood cells[ICD10: R71.8] Diagnosis: Contracture of muscle, unspecified site[ICD10: M62.40] Lita ALYLINE Ashley BARAKAT [facility] CPT-4: 79932 04/17/2017 OFFICE/OUTPATIENT VISIT EST Diagnosis: Pain in left shoulder[ICD10: M25.512] Ruchi PIEDRA MARC Ashley BARAKAT DO [facility] CPT-4: 97305 01/29/2017 ([id number]) OFFICE/OUTPATIENT VISIT EST Diagnosis: Anemia, unspecified[ICD10: D64.9] Lita BARAKAT DO [facility] CPT-4: 04585 12/27/2016 ([id number]) OFFICE/OUTPATIENT VISIT EST Diagnosis: Other fatigue[ICD10: R53.83] Diagnosis: Other iron deficiency anemias[ICD10: D50.8] Lita BARAKAT DO [facility] CPT-4: 57617 12/21/2016 ([id number]) OFFICE/OUTPATIENT VISIT EST Diagnosis: Anemia, unspecified[ICD10: D64.9] Diagnosis: Other fatigue[ICD10: R53.83] Diagnosis: Restless legs syndrome[ICD10: G25.81] Lita BARAKAT DO [facility] CPT-4: 45100 12/14/2016 ([id number]) OFFICE/OUTPATIENT VISIT EST Diagnosis: Anemia, unspecified[ICD10: D64.9] Diagnosis: Other abnormality of red blood cells[ICD10: R71.8] Lita BARAKAT DO [facility] CPT-4: 90069 12/12/2016 ([id number]) OFFICE/OUTPATIENT VISIT EST Diagnosis: Pneumonia, unspecified organism[ICD10: J18.9] Diagnosis: Restless legs syndrome[ICD10: G25.81] Magda BARAKAT DO [facility] CPT-4: 23011 11/14/2016 ([id number]) OFFICE/OUTPATIENT VISIT EST Diagnosis: Candidal stomatitis[ICD10: B37.0] Lita BARAKAT DO [facility] CPT-4: 45042 10/31/2016 ([id number]) OFFICE/OUTPATIENT VISIT EST Diagnosis: Acute upper respiratory infection, unspecified[ICD10: J06.9] Diagnosis: Personal history of pneumonia (recurrent)[ICD10: Z87.01] Magda BARAKAT DO [facility] CPT-4: 27051 10/03/2016 ([id number]) OFFICE/OUTPATIENT VISIT EST Diagnosis: Restless legs syndrome[ICD10: G25.81] Diagnosis: Insomnia, unspecified[ICD10: G47.00] Magda BARAKAT [facility] CPT-4: 17339 09/04/2016 ([id number]) OFFICE/OUTPATIENT VISIT EST Diagnosis: Restless legs syndrome[ICD10: G25.81] Diagnosis: Primary insomnia[ICD10: F51.01] Lita BARAKAT [facility] CPT-4: 21346 08/10/2016 OFFICE/OUTPATIENT VISIT EST Diagnosis: Toxic gastroenteritis and colitis[ICD10: K52.1] Diagnosis: Dizziness and giddiness[ICD10: R42] Diagnosis: Headache[ICD10: R51] Diagnosis: Restless legs syndrome[ICD10: G25.81] Lita BARAKAT 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 CPT-4: 95443 06/01/2016 ([id number]) OFFICE/OUTPATIENT VISIT EST Diagnosis: Unspecified hearing loss, left ear[ICD10: H91.92] Diagnosis: Other specified disorders of Eustachian tube, left ear[ICD10: H69.82] [facility] CPT-[facility]: 22068 11/2015 ([id number]) OFFICE/OUTPATIENT VISIT EST Diagnosis: Impacted cerumen, bilateral[ICD10: H61.23] Diagnosis: DM W/O COMPLICATION TYPE I, 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: E10.9] Diagnosis: Generalized anxiety disorder[ICD10: F41.1] Lita Funezbrii LITA Ashley BARAKAT [email or web address] CPT-4: 49218 04/03/2016 ([id number]) OFFICE/OUTPATIENT VISIT EST Diagnosis: 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] Lita CRAWFORD DonovanFerdinand YUVAL [email or web address] CPT - 4: 31720 03/13/2016 ([id number]) OFFICE/OUTPATIENT VISIT EST Diagnosis: Type 2 diabetes mellitus with hyperglycemia[ICD10: E11.65] Diagnosis: Hyperlipidemia, unspecified[ICD10: E78.5] Diagnosis: Essential (primary) hypertension[ICD10: I10] Diagnosis: Chronic obstructive pulmonary disease, unspecified[ICD10: J44.9] Diagnosis: Testicular hypofunction[ICD10: E29.1] Diagnosis: Male erectile dysfunction, unspecified[ICD10: N52.9] Diagnosis: Anemia, unspecified[ICD10: D64.9] Lita Giannibetty Segura Ashley BARAKAT [email or web address] CPT-4: 06639 03/06/2016 ([id number]) OFFICE/OUTPATIENT VISIT EST Diagnosis: Type 2 diabetes mellitus with hyperglycemia[ICD10: E11.65] Diagnosis: Hyperlipidemia, unspecified[ICD10: E78.5] Diagnosis: Chronic obstructive pulmonary disease, unspecified[ICD10: J44.9] Diagnosis: Male erectile dysfunction, unspecified[ICD10: N52.9] Lita CRAWFORD Ashley BARAKAT [email or web address] CPT-4: 60406 03/02/2016 ([id number]) OFFICE/OUTPATIENT VISIT EST Diagnosis: Pain in right foot[ICD10: M79.671] Magda GONZALES Ashley BARAKAT [email or web address] CPT-4: 61680 02/14/2016 OFFICE/OUTPATIENT VISIT EST Diagnosis: Generalized anxiety disorder[ICD10: F41.1] Lita CRAWFORD DonovanFerdinand YUVAL [email or web address] CPT-4: 65752 01/31/2016 ([id number]) OFFICE/OUTPATIENT VISIT EST Diagnosis: Generalized anxiety disorder[ICD10: F41.1] Lita BARAKAT FMS [facility] CPT-4: 33439 12/30/2015 ([id number]) OFFICE/OUTPATIENT VISIT EST Diagnosis: Localized swelling, mass and lump, neck[ICD10: R22.1] Lita BARAKAT DO [facility] CPT-4: 43394 12/16/2015 OFFICE/OUTPATIENT VISIT EST Diagnosis: Localized enlarged lymph nodes[ICD10: R59.0] Diagnosis: Otalgia, left ear[ICD10: H92.02] Stephanie BARAKAT DO [facility] CPT-4: 75462 12/06/2015 OFFICE/OUTPATIENT VISIT EST Diagnosis: Localized enlarged lymph nodes[ICD10: R59.0] Diagnosis: Squamous cell carcinoma of skin, unspecified[ICD10: C44.92] Diagnosis: Actinic keratosis[ICD10: L57.0] Stephanie BARAKAT FMS [facility] CPT-4: 21258 11/15/2015 OFFICE/OUTPATIENT VISIT EST Diagnosis: Cellulitis of left lower limb[ICD10: L03.116] Diagnosis: Encounter for examination and observation for other specified reasons[ICD10: Z04.8] Diagnosis: Chronic obstructive pulmonary disease, unspecified[ICD10: J44.9] Stephanie BARAKAT FMS [facility] CPT-4: 78206 07/22/2015 OFFICE/OUTPATIENT VISIT EST Diagnosis: Other specified joint disorders, left knee[ICD10: M25.862] Diagnosis: Cellulitis of left lower limb[ICD10: L03.116] Diagnosis: Other fatigue[ICD10: R53.83] Diagnosis: Hyperlipidemia, unspecified[ICD10: E78.5] Stephanie BARAKAT FMS [facility] CPT-4: 91199 07/01/2015 OFFICE/OUTPATIENT VISIT EST Diagnosis: Pain in left knee[ICD10: M25.562] Diagnosis: Cellulitis of left lower limb[ICD10: L03.116] Diagnosis: Other specified joint disorders, left knee[ICD10: M25.862] Stephanie BARAKAT DO [facility] CPT-4: 24917 06/28/2015 OFFICE/OUTPATIENT VISIT EST Diagnosis: PREPATELLAR BURSITIS[ICD9: 726.65] Diagnosis: Cellulitis of knee, left[ICD9: 682.6] Stephanie BARAKAT DO [facility] CPT-4: 70443 06/09/2015 ([id number]) OFFICE/OUTPATIENT VISIT EST Diagnosis: PREPATELLAR BURSITIS[ICD9: 726.65] Diagnosis: Cellulitis of knee, left[ICD9: 682.6] Lita BARAKAT DO [facility] CPT-4: 13386 06/07/2015 OFFICE/OUTPATIENT VISIT EST Diagnosis: Cellulitis of knee, left[ICD9: 682.6] Stephanie BARAKAT DO [facility] CPT-4: 42677 06/03/2015 ([id number]) OFFICE/OUTPATIENT VISIT EST Diagnosis: DM W/O COMPLICATION TYPE II, UNCONTROLLED[ICD9: 250.02] Diagnosis: COPD[ICD9: 496] Lita BARAKAT [facility] CPT- 4: 95805 06/01/2015 ([id number]) OFFICE/OUTPATIENT VISIT EST Diagnosis: COPD[ICD9: 496] Diagnosis: DYSPNEA[ICD9: 786.09] Diagnosis: DM W/O COMPLICATION TYPE II, UNCONTROLLED[ICD9: 250.02] Diagnosis: Actinic keratosis[ICD9: 702.0] Lita ABRAKAT [facility] CPT-4: 63425 02/25/2015 ([id number]) OFFICE/OUTPATIENT VISIT EST Diagnosis: ASTHMA NOS[ICD9: 493.90] Diagnosis: COPD[ICD9: 496] Diagnosis: DM W/O COMPLICATION TYPE II, UNCONTROLLED[ICD9: 250.02] Lita BARAKAT DO [facility] CPT-4: 97582 10/27/2014 OFFICE/OUTPATIENT VISIT EST Diagnosis: DYSPNEA[ICD9: 786.09] Diagnosis: COPD[ICD9: 496] Lita Giannielvabrii BARAKAT [facility] CPT- 4: 67110 10/06/2014 ([id number]) OFFICE/OUTPATIENT VISIT EST Diagnosis: PNEUMONIA, ORGANISM[ICD9: 486] Diagnosis: COPD[ICD9: 496] Diagnosis: DYSPNEA[ICD9: 786.09] Lita BARAKAT DO [facility] CPT-4: 58658 09/21/2014 OFFICE/OUTPATIENT VISIT EST Diagnosis: PNEUMONIA, ORGANISM[ICD9: 486] Diagnosis: DYSPNEA[ICD9: 786.09] Diagnosis: COUGH[ICD9: 786.2] Stephanie BARAKAT DO [facility] CPT-4: 24822 09/08/2014 OFFICE/OUTPATIENT VISIT EST Diagnosis: COPD with exacerbation[ICD9: 491.21] Diagnosis: COUGH[ICD9: 786.2] Diagnosis: DYSPNEA[ICD9: 786.09] Stephanie BARAKAT DO [facility] CPT-4: 12472 09/02/2014 ([id number]) OFFICE/OUTPATIENT VISIT EST Diagnosis: DM W/O COMPLICATION TYPE II, UNCONTROLLED[ICD9: 250.02] Lita BARAKAT [facility] CPT-4: 58841 08/27/2014 ([id number]) OFFICE/OUTPATIENT VISIT EST Diagnosis: DM W/O COMPLICATION TYPE II, UNCONTROLLED[ICD9: 250.02] Diagnosis: HYPERLIPIDEMIA NEC/NOS[ICD9: 272.4] Diagnosis: HYPERTENSION[ICD9: 401.9] Diagnosis: COPD[ICD9: 496] Diagnosis: FLU VACCINE[ICD10: Z23] Lita PABLO [facility] CPT-4: 23435 08/05/2014 ([id number]) OFFICE/OUTPATIENT VISIT EST Diagnosis: COPD[ICD9: 496] Diagnosis: Lumbar degenerative disc disease[ICD9: 722.52] Lita BARAKAT DO [facility] CPT-4: 31505 05/05/2014 OFFICE/OUTPATIENT VISIT EST Diagnosis: DYSPNEA[ICD9: 786.09] Diagnosis: COPD[ICD9: 496] Lita BARAKAT [facility] CPT- 4: 93381 03/24/2014 ([id number]) OFFICE/OUTPATIENT VISIT EST Diagnosis: COPD[ICD9: 496] Diagnosis: DYSPNEA[ICD9: 786.09] [facility] CPT-[facility]: 05265 03/10/2014 OFFICE/OUTPATIENT VISIT EST Diagnosis: Subacromial bursitis[ICD9: 726.19] Diagnosis: Chronic low back pain[ICD9: 724.2] Diagnosis: Lumbar degenerative disc disease[ICD9: 722.52] Lita ManFerdinand [facility] CPT-[facility]: 79534 12/16/2013 ([id number]) OFFICE/OUTPATIENT VISIT EST Diagnosis: PHARYNGITIS, ACUTE[ICD9: 462] Diagnosis: COPD[ICD9: 496] Lita ALYLINE DonovanFerdinand [facility] CPT- 4: 89333 10/09/2013 OFFICE/OUTPATIENT VISIT EST Diagnosis: COPD[ICD9: 496] Diagnosis: Acute exacerbation of chronic obstructive pulmonary disease (COPD)[ICD9: 491.21] Ruchi Buchanan LITA ManFerdinand [facility] CPT-4: 64681 09/18/2013 ([id number]) OFFICE/OUTPATIENT VISIT EST Diagnosis: PNEUMONIA, ORGANISM[ICD9: 486] Diagnosis: DM W/O COMPLICATION TYPE II[ICD9: 250.00] Lita ALYLINE Donovan[facility]erdinand [facility] CPT-[facility]: 13046 08/13/2013 ([id number]) OFFICE/OUTPATIENT VISIT EST Diagnosis: DM W/O COMPLICATION TYPE II, UNCONTROLLED[ICD9: 250.02] Diagnosis: HYPERLIPIDEMIA NEC/NOS[ICD9: 272.4] Diagnosis: HYPERTENSION[ICD9: 401.9] Diagnosis: DYSPNEA[ICD9: 786.09] Diagnosis: Family history of CABG[ICD9: V17.49] Lita ManFerdinand [facility] CPT-4: 38729 07/16/2013 ([id number]) OFFICE/OUTPATIENT VISIT EST Diagnosis: DM W/O COMPLICATION TYPE II, UNCONTROLLED[ICD9: 250.02] Diagnosis: HYPERLIPIDEMIA NEC/NOS[ICD9: 272.4] Diagnosis: HYPERTENSION[ICD9: 401.9] Lita [facility]unezbrii [facility] C[facility]: 90494 06/25/2013 OFFICE/OUTPATIENT VISIT EST Diagnosis: COUGH[ICD9: 786.2] Diagnosis: COPD[ICD9: 496] Kimberly [facility] CPT- 4: 20678 04/09/2013 ([id number]) OFFICE/OUTPATIENT VISIT EST Diagnosis: Muscle spasm[ICD9: 728.85] Diagnosis: ARTHRALGIA-MULTIPLE SITES[ICD9: 719.49] Lita Yuval MENAJESSICA Ashley [facility] CPT-4: 40580 02/11/2013 OFFICE/OUTPATIENT VISIT EST Diagnosis: COPD with exacerbation[ICD9: 491.21] Diagnosis: BRONCHITIS, ACUTE[ICD9: 466.0] Ruchi Buchanan LITA [facility] CPT-4: 88430 01/31/2013 OFFICE/OUTPATIENT VISIT EST Diagnosis: COUGH[ICD9: 786.2] Diagnosis: PHARYNGITIS, ACUTE[ICD9: 462] Diagnosis: SINUSITIS, ACUTE[ICD9: 461.9] Lita [facility] CPT-4: 92842 01/20/2013 OFFICE/OUTPATIENT VISIT EST Diagnosis: DIZZINESS/VERTIGO[ICD9: 780.4] [facility]ita [facility] CPT-[facility]: 74331 12/19/2012 OFFICE/OUTPATIENT VISIT EST Diagnosis: Skin lesion of left arm[ICD9: 709.9] Diagnosis: Otitis externa[ICD9: 380.10] Diagnosis: PHARYNGITIS, ACUTE[ICD9: 462] Lita Yuval ALYLINE Ashley [facility] CPT-[facility]: 18637 10/21/2012 ([id number]) OFFICE/OUTPATIENT VISIT EST Diagnosis: DM W/O COMPLICATION TYPE II, UNCONTROLLED[ICD9: 250.02] Diagnosis: HYPERLIPIDEMIA NEC/NOS[ICD9: 272.4] Diagnosis: HYPERTENSION[ICD9: 401.9] [facility]ita [facility]val [facility] CPT-[facility]: 50053 09/19/2012 ([id number]) OFFICE/OUTPATIENT VISIT EST Diagnosis: DM W/O COMPLICATION TYPE II, UNCONTROLLED[ICD9: 250.02] Diagnosis: HYPERLIPIDEMIA NEC/NOS[ICD9: 272.4] Diagnosis: COPD[ICD9: 496] Lita BARAKAT DO [facility] CPT- 4: 89758 09/18/2012 ([id number]) OFFICE/OUTPATIENT VISIT EST Diagnosis: BRONCHITIS, ACUTE[ICD9: 466.0] Diagnosis: SINUSITIS, ACUTE[ICD9: 461.9] Lita BARAKAT DO [facility] CPT-4: 39984 08/28/2012 ([id number]) OFFICE/OUTPATIENT VISIT EST Diagnosis: COPD[ICD9: 496] Diagnosis: DYSPNEA[ICD9: 786.09] Diagnosis: VAC STREP PNEUMONIAE-FLU (Medicare)[ICD9: V06.6] Lita BARAKAT DO [facility] CPT-4: 44652 07/10/2012 ([id number]) OFFICE/OUTPATIENT VISIT EST Diagnosis: DM W/O COMPLICATION TYPE II, UNCONTROLLED[ICD9: 250.02] Diagnosis: HYPERTENSION[ICD9: 401.9] Diagnosis: HYPERLIPIDEMIA NEC/NOS[ICD9: 272.4] Diagnosis: DIZZINESS/VERTIGO[ICD9: 780.4] Lita BARAKAT FMS [facility] CPT-4: 67099 05/09/2012 ([id number]) OFFICE/OUTPATIENT VISIT EST Diagnosis: DM W/O COMPLICATION TYPE II, UNCONTROLLED[ICD9: 250.02] Diagnosis: HYPERLIPIDEMIA NEC/NOS[ICD9: 272.4] Diagnosis: HYPERTENSION[ICD9: 401.9] Diagnosis: MALAISE AND FATIGUE[ICD9: 780.79] Lita BARAKAT FMS [facility] CPT-4: 02967 05/06/2012 OFFICE/OUTPATIENT VISIT EST Diagnosis: COUGH[ICD9: 786.2] Diagnosis: SINUSITIS, ACUTE[ICD9: 461.9] Diagnosis: PHARYNGITIS, ACUTE[ICD9: 462] Lita BARAKAT FMS [facility] CPT-4: 06381 10/02/2011 OFFICE/OUTPATIENT VISIT EST Diagnosis: DM W/O COMPLICATION TYPE II, UNCONTROLLED[ICD9: 250.02] Diagnosis: HYPERLIPIDEMIA NEC/NOS[ICD9: 272.4] Diagnosis: HYPERTENSION[ICD9: 401.9] Diagnosis: COPD[ICD9: 496] Lita [facility] CPT- 4: 63765 08/07/2011 OFFICE/OUTPATIENT VISIT EST Lita [facility] CPT- 4: 46996 04/03/2011 ([id number]) OFFICE/OUTPATIENT VISIT EST Lita PALACIOS SFerdinand [facility] CPT-4: 60238 01/18/2011 ([id number]) OFFICE/OUTPATIENT VISIT EST Lita PALACIOS SF[facility] CPT-4: 45719 12/19/2010 ([id number]) OFFICE/OUTPATIENT VISIT, EST Lita HOLMAN SFerdinand [facility] CPT-4: 84325 04/05/2010 ([id number]) OFFICE/OUTPATIENT VISIT, EST Lita HOLMAN SFerdinand [facility] CPT-4: 36546 01/13/2010 ([id number]) OFFICE/OUTPATIENT VISIT, EST Lita HOLMAN SFerdinand [facility] CPT-4: 12214 12/23/2009 ([id number]) OFFICE/OUTPATIENT VISIT, EST [facility] CPT-4: 42503 12/22/2009 ([id number]) OFFICE/OUTPATIENT VISIT, EST Lita HOLMAN SFerdinand [facility] CPT-4: 70131 12/13/2009 Plan of Care Planned Activity Notes [...] M25.561 12/22/2019 Patient Education: baclofen- [employer] [id number] https://www.samplemd.com/samplemd/resources/getResource/61/yn2il078-lpj1-0gu0-62 Completed 12/22/2019 Visit Diagnosis Plan: Chronic respiratory [...] : C44.310 11/12/2019 Appointment: Lita Barakat WPtel: [address] [place], [place] [phone] [place] ACUTE ILLNESS 11/12/2019 Care Plan: Referral Order SNOMED-CT : 30 [id number] Pending 11/12/2019 Care Plan: Referral Order SNOMED-CT : 30 [id number] Pending 11/12/2019 Visit Diagnosis Plan: Right thyroid nodule Discussion: Check thyroid US ICD-9 : 241.0 ICD-10 : E04.1 09/11/2019 Visit Diagnosis Plan: Chronic obstructive pulmonary di sease, unspecified Discussion: Start Pulmonary Rehab Reviewed results of CT of chest ordered by pulmonology Follow Up: 3 months ICD-9 : 496 ICD-10 : J44.9 09/11/2019 Appointment: Lita Barakat WPtel: [facility] [place] MEDICATION REVIEW 09/11/2019 Care Plan: US EXAM OF HEAD AND NECK LOIN C : 96408-2 Pending 09/11/2019 Visit Diagnosis Plan: Chronic bronchitis Discussion: A ugmentin for 10 days ICD-9 : 491.9 ICD-10 : J42 08/07/2019 Appointment: Lita Barakat WPtel: [address] [place] [address] ACUTE ILLNESS 08/07/2019 Visit Diagnosis Plan: Chronic [...] him that overuse of symbicort can cause detention damage and the albuterol is to be used every 4 hours as needed. call office later this week with worsening or no improvement ICD-9 : 491.21 ICD-10 : J44.1 07/14/2019 Appointment: Autumn Oneil [address] [place] [address] ACUTE ILLNESS 07/14/2019 Visit Diagnosis Plan: Dyspepsia [...] : F51.01 07/01/2019 Appointment: Lita Barakat WPtel: [facility] [address] FOLLOW UP 07/01/2019 Care Plan: CT ABDOMEN W/O DYE LOINC : 36 103-0 Pending 07/01/2019 Care Plan: Referral Order SNOMED-CT : 30 [id number] Pending 07/01/2019 Visit Diagnosis Plan: Weight loss [...] R10.13 06/24/2019 Appointment: [facility] [phone] [id number] AC[facility] I[facility] 06/24/2019 Patient Education: Seroquel- [employer] [id number] https://www.[employer]/sampleApexigen/resources/getResource/61/9pq9f4q3-p369-16y4-08 Completed 06/24/2019 Patient Education: ondansetron HCl- [employer] [id number] https://www.[employer]/resources/getResource/61/8691957b-2494-62m7-h0 Completed 06/24/2019 Care Plan: US EXAM ABDOM COMPLETE LOINC : 91456-4 Pending 06/24/2019 Visit Diagnosis Plan: Chronic insomnia [...] 368.2 ICD-10 : H53.2 06/17/2019 Appointment: Lita Barakat WPtel: [address] [place], [place] [phone] [place] FOLLOW UP 06/17/2019 Appointment: Lita Barakat WPtel: [address] [place], [place] [phone] [place] INJECTION 06/10/2019 Appointment: Lita Barakat WPtel: [address] [place], [place] [phone] [place] INJECTION 06/02/2019 Appointment: Lita Barakat WPtel: [address] [place], [place] [phone] [place] INJECTION 05/27/2019 Appointment: Lita Barakat WPtel: [address] [place], [place] [phone] [place] INJECTION 05/12/2019 Visit Diagnosis Plan: Anemia, [...] : E55.9 05/08/2019 Appointment: Lita Barakat WPtel: [address] [place], [place] [phone] [place] FOLLOW UP 05/08/2019 Visit Diagnosis Plan: Pain in right knee Discussion: S top tramadol and tylenol q HS Trial of Hydrocodone 10/325mg po q HS Recheck 1month ICD-9 : 719.46 ICD-10 : M25.561 04/07/2019 Appointment: Lita Barakat WPtel: [phone] [id number] Hospital Follow Up 04/07/2019 Visit Diagnosis Plan: [...] F41.1 03/24/2019 Appointment: Autumn Oneil [address] [id number] ACUTE ILLNESS 03/24/2019 Patient Education: hydroxyzine HCl- [employer] [id number] Completed 03/24/2019 Patient Education: pantoprazole- [employer] [id number] Completed 03/24/2019 Visit Diagnosis Plan: Chronic obstructiv e pulmonary disease with (acute) exacerbation Discussion: 90 mg solumedrol given in of fice. patient's portable oxygen tank was empty. dofequv4s patient on importance of monitoring oxygen tank [...] ICD-10 : R42 03/21/2019 Appointment: Autumn Oneil [address] [place] [address] ACUTE ILLNESS 03/21/2019 Patient Education: ipratropium-albuterol- [employer] C taj [id number] https://www.[employer].Baileyu/samplemd/resources/getResource/61/n7ns85o3-m1s1-9j0a-95 Completed 03/21/2019 Visit Diagnosis Plan: Chronic obstructiv e pulmonary disease with (acute) exacerbation Discussion: Solumedrol now Use SVNs with duoneb at least q4hrs Patient is supposed to be on continuous oxygen but not wearing ICD-9 : 491.21 ICD-10 : J44.1 03/13/2019 Visit Diagnosis Plan: Candidal stomatitis Discussion: Diflucan and Nystatin susp ICD-9 : 112.0 ICD-10 : B37.0 03/13/2019 Appointment: Lita Barakat WPtel: [facility] [address] ACUTE ILLNESS 03/13/2019 Patient Education: losartan- [employer] [id number] Completed 03/13/2019 Patient Education: nystatin- [employer] [id number] Completed 03/13/2019 Patient Education: fluconazole- [employer] [id number] Completed 03/13/2019 Visit Diagnosis Plan: Chronic obstructiv [...] : G25.81 03/10/2019 Appointment: Lita Barakat WPtel: [address] [place], [place] [phone] ACUTE ILLNESS 03/10/2019 Visit Diagnosis Plan: Restless legs syndrome Discussio n: Stop requip Increase sinemet to TID Add children's chewable MV with iron BID Add magnesium oxide 400mg daily Add Lyrica 75mg po q HS Stop trazadone Recheck 3 weeks Follow Up: 3 weeks ICD-9 : 333.94 ICD-10 : G25.81 02/26/2019 Appointment: Lita Barakat WPtel: [address] [place], [place] [phone] ACUTE ILLNESS 02/26/2019 Visit Diagnosis Plan: Primary insomnia Discussion: Tri al of doxepin 10-20mg po q HS prn sleep ICD-9 : 780.52 ICD-10 : F51.01 02/13/2019 Visit Diagnosis Plan: Chronic obstructive pulmonary di sease, unspecified Discussion: Stable Discussed trip to [place]--will get oxygen setup through [facility] ICD-9 : 496 ICD-10 : J44.9 02/13/2019 Appointment: Lita Barakat WPtel: [address] [place], [place] [phone] FOLLOW UP 02/13/2019 Patient Education: doxepin- [employer] C[employer]on [id number] [email or web address] Completed 02/13/2019 Appointment: Lita Barakat WPtel: [address] [place], [place] [phone] CANCELED 01/20/2019 Visit Diagnosis Plan: Chronic obstructive pulmonary di sease, unspecified Discussion: Stable on oxygen Given Symbicort samples Follow Up: 1 months ICD-9 : 496 ICD-10 : J44.9 01/14/2019 Appointment: Lita Barakat WPtel: [address] [place], [place] [phone] Hospital Follow Up 01/14/2019 Visit Diagnosis Plan: [...] : J96.11 12/25/2018 Appointment: Lita Barakat WPtel: [address] [facility] Hospital Follow Up 12/25/2018 Appointment: Lita Barakat WPtel: [address] [facility] CANCELED 12/23/2018 Appointment: Ines Banerjee [address] [place], [place] [phone] CANCELED 12/20/2018 Visit Diagnosis Plan: Acute [...] ICD-10 : I10 12/09/2018 Appointment: Ines Banerjee [address] [place], [place] [address] LAB 12/09/2018 Patient Education: cefdinir- [employer] Coupon [id number] [email or web address]/resources/getResource/[email or web address] Completed 12/09/2018 Visit Diagnosis Plan: Candidal stomatitis Discussion: Diflucan for 5 days Hold atorvastatin while taking ICD-9 : 112.0 ICD-10 : B37.0 12/05/2018 Appointment: Lita Barakat WPtel: [address] [place], [place] [phone] ACUTE ILLNESS 12/05/2018 Patient Education: fluconazole- [employer] Coupon [phone] https://www.[employer]y Hotel/[email or web address]/resources/getResource/61/[email or web address] Completed 12/05/2018 Appointment: Lita Barakat WPtel: [address] [place], [place] [phone] NO SHOW 11/11/2018 Visit Plan: Saline nasal [...] : J01.91 10/23/2018 Appointment: Lita Barakat WPtel: [address] [place], [place] [phone] ACUTE ILLNESS 10/23/2018 Patient Education: prednisone- [employer] Coupon [id number] https://www.[employer]/Cuponzote/resources/getResource/61/[email or web address]-[email or web address] Completed 10/23/2018 Care Plan: A1C HPLC LOINC : 30267-2 Pending 09/10/2018 Care Plan: COMPREHEN METABOLIC PANEL [place] NC : 29214-6 Pending 09/10/2018 Care Plan: CBC Pending 09/10/2018 [...] : G25.81 08/21/2018 Appointment: Lita Barakat WPtel: [address] [place] [address] ACUTE ILLNESS 08/21/2018 Care Plan: Referral Order SNOMED-CT : 30 4263053 Pending 08/21/2018 Visit Diagnosis Plan: Chronic obstructiv [...] : G25.81 08/07/2018 Appointment: Lita Barakat WPtel: [address] [place] [address] LM FOLLOW UP 08/07/2018 Appointment: Lita Barakat WPtel: [address] [place] [address] 07/18/18 1210---see note in chart (km) CANCELED 07/18/2018 Visit Diagnosis Plan: Chronic obstructiv e pulmonary disease with acute lower respiratory infection Discussion: Solumedrol 125mg IM Change t o trelagy 1 inhalation daily Use SVNs with albuterol q4hrs To ER this weekend if worsens Monitor weight/swelling ICD-9 : 496 ICD-10 : J44.0 05/23/2018 Appointment: Lita Barakat WPtel: [address] [place] [address] ACUTE ILLNESS 05/23/2018 Patient Education: Patient Medication Summary Completed 05/23/2018 Visit Diagnosis Plan: Candidal stomatitis Discussion: Diflucan for 7 more days--hold atrovastatin while taking ICD-9 : 112.0 ICD-10 : B37.0 05/02/2018 Appointment: Lita Barakat WPtel: [address] [id number] FOLLOW UP 05/02/2018 Patient Education: Patient Medication [...] ICD-10 : J44.0 04/29/2018 Appointment: Autumn Oneil [address] [place], [place] [address] ACUTE ILLNESS 04/29/2018 Patient Education: Patient Medication [...] : J44.0 04/22/2018 Appointment: Lita Barakat WPtel: [address] [place], [place] [address] Hospital Follow Up 04/22/2018 Patient Education: Patient Medication Summary Completed 04/22/2018 Appointment: Lita Barakat WPtel: [facility] 04/09/18 1640---see message in chart from today [...] : M17.11 01/28/2018 Appointment: Lita Barakat WPtel: [facility] [facility] 01/28/2018 Patient Education: Patient Medication Summary Completed 01/28/2018 Care Plan: Referral Order SNOMED-CT : 30 4344822 Pending 01/28/2018 Care Plan: Referral Order SNOMED-CT : 30 1361681 Pending 01/28/2018 Visit Diagnosis Plan: Functional dyspepsia Discussion: Protonix Call in 1 week on how doing ICD-9 : 536.8 ICD-10 : K30 01/23/2018 Visit Diagnosis Plan: Pain in right knee Discussion: T opical voltaren gel QID ICD-9 : 719.46 ICD-10 : M25.561 01/23/2018 Appointment: Lita Barakat WPtel: [facility] [address] ACUTE ILLNESS 01/23/2018 Patient Education: Patient [...] N39.0 01/02/2018 Appointment: Lita Barakat WPtel: [address] ACUTE ILLNESS 01/02/2018 Patient Education: Patient [...] ICD-10 : J44.1 12/28/2017 Appointment: Autumn Oneil [address] [place] [address] Consult 12/28/2017 Patient Education: Patient Medication Summary [...] : J20.9 12/21/2017 Appointment: Autumn Oneil [address] [facility] ACUTE ILLNESS 12/21/2017 Patient Education: Patient Medication Summary Completed 12/21/2017 Care Plan: X-RAY EXAM OF KNEE 1 OR 2 right LEILA NC : 07976-7 Pending 12/18/2017 Visit Diagnosis Plan: Pain in [...] ICD-10 : J44.0 12/17/2017 Appointment: Autumn Oneil [address] [place], [place] [phone] ACUTE ILLNESS 12/17/2017 Patient Education: Patient Medication Summary Completed 12/17/2017 Visit Diagnosis Plan: Unilateral primary osteoarthriti s, right knee Discussion: Right knee injection as above Warned of elevated BS after injection ICD-9 : 715.96 ICD-10 : M17.11 12/11/2017 Appointment: Lita Barakat WPtel: [address] [facility] [facility] 12/11/2017 Patient Education: Patient Medication Summary Completed 12/11/2017 Visit Diagnosis Plan: Actinic keratosis Discussion: Cr yotherapy as above If persists then will need excision by Dr. Swanson ICD-9 : 702.0 ICD-10 : L57.0 11/07/2017 Appointment: Lita Barakat WPtel: [address] [place] [address] ACUTE ILLNESS 11/07/2017 Patient Education: Patient Medication [...] : S61.411S 10/17/2017 Appointment: Lita Barakat WPtel: [address] [place] [address] ER Follow UP 10/17/2017 Patient Education: Patient Medication Summary Completed 10/17/2017 Appointment: Lita Barakat WPtel: [address] [place] [address] [place] Consult 08/15/2017 Visit Diagnosis Plan: Chronic [...] ICD-10 : J44.0 08/02/2017 Appointment: Autumn Oneil [address] [place] [address] ACUTE ILLNESS 08/02/2017 Patient Education: Patient Medication Summary Completed 08/02/2017 Patient Education: Patient Medication Summary Completed 07/31/2017 Care Plan: CHEST X-RAY 2VW FRONTAL&LATL LOINC : 00460-0 Pending 07/31/2017 Appointment: Lita Barakat WPtel: [address] [place], [place] [phone] [place] INJECTION 07/24/2017 Patient Education: Patient Medication [...] ICD-10 : J44.1 07/02/2017 Appointment: Autumn Oneil [address] [place] [address] ACUTE ILLNESS 07/02/2017 Patient Education: Patient Medication Summary Completed 07/02/2017 Care Plan: CHEST X-RAY 2VW FRONTAL&LATL LOINC : 94750-8 Pending 07/02/2017 Care Plan: MRI LUMBAR SPINE W/O DYE LOIN C : 80776-5 Pending 05/30/2017 Visit Plan: MRI at [facility] codone 5.325 1 po q 4-6 hours prn pain #40 NR and Cyclobenzaprine (ERx) Continue warm packs for pain RTC if no improvement 05/29/2017 Appointment: Ruchi Buchanan WPtel: [address] [place], [place] [phone] ACUTE ILLNESS 05/29/2017 Patient Education: Patient Medication Summary Completed 05/29/2017 Appointment: Lita Barakat WPtel: [address] [place], [place] [phone] [place] CANCELED 05/24/2017 Patient Education: Patient Medication Summary Completed 05/22/2017 Care Plan: X-RAY EXAM L-S SPINE 2/3 VWS LOINC : 20018-1 Pending 05/22/2017 Appointment: Lita Barakat WPtel: [address] [place] [address] [place] LAB 04/17/2017 Patient Education: Patient Medication Summary Completed 04/17/2017 Referral: Demetrius Benjamin WPtel: [address] [address] [place] Referral Initiated 04/05/2017 Appointment: Lita Barakat WPtel: [address] [place], [place] [phone] 03/30/17 0930---spoke with patient about ointments (km Consult 03/30/2017 Appointment: Lita Barakat WPtel: [address] [place], [place] [phone] 03/29/17 1320---spoke with patient, requip refilled wasn't received at pharmacy so verbally called (km) Consult 03/29/2017 Patient Education: Patient Medication Summary Completed 03/01/2017 Care Plan: CHEST X-RAY 2VW FRONTAL&LATL LOINC : 71139-5 Pending 03/01/2017 Visit Diagnosis Plan: Bursitis of left shoulder Discus yesi: Injection as above ICD-9 : 726.10 ICD-10 : M75.52 02/01/2017 Appointment: Lita Barakat WPtel: [address] [place] [address] 01/31 confirmed ~sl WORK IN 02/01/2017 Patient Education: Patient Medication Summary Completed 02/01/2017 Care Plan: X-RAY EXAM OF SHOULDER LOINC : 49364-2 Pending 01/30/2017 Visit Plan: May take OTC Tylenol/Ibuprof en as directed XRay at [facility] of left shoulder Tramadol 50mg 1 po q 6 hours prn pain called to [facility]. Sedation warning given (no driving, etc) RTC if no improvement 01/29/2017 Appointment: Ruchi Buchanan WPtel: [address] [place] [address] ACUTE ILLNESS 01/29/2017 Appointment: Ruchi Buchanan WPtel: [address] [place] [address] ACUTE ILLNESS 01/29/2017 Patient Education: Patient Medication Summary Completed 01/29/2017 Appointment: Lita Barakat WPtel: [address] [place] [address] [place] Consult 01/10/2017 Appointment: Lita Barakat WPtel: [address] [place] [address] 12/27/2016 Patient Education: Patient Medication Summary Completed [...] : R53.83 12/21/2016 Appointment: Lita Barakat WPtel: [address] [place] [address] ACUTE ILLNESS 12/21/2016 Patient Education: Patient Medication Summary Completed 12/21/2016 Appointment: Lita Barakat WPtel: [address] [place] [address] [place] CANCELED 12/18/2016 Visit Diagnosis Plan: Restless [...] : D64.9 12/14/2016 Appointment: Lita Barakat WPtel: [address] [place] [address] 12/13 confirmed ~sl WORK IN 12/14/2016 Appointment: Lita Barakat WPtel: [address] [place], [place] [address] [place] CANCELED 12/14/2016 Patient Education: Patient Medication Summary Completed 12/14/2016 Appointment: Lita Barakat WPtel: [address] [place] [address] LAB 12/12/2016 Patient Education: Patient Medication Summary Completed 12/12/2016 Appointment: Lita Barakat WPtel: [address] [place] [address] in ER this weekend--called for reports Consult 12/11/2016 Appointment: Lita Barakat WPtel: [address] [facility] [facility] 12/04/2016 Visit Diagnosis Plan: Pneumonia, [...] : G25.81 11/14/2016 [facility]ointment[facility] [facility] 11/14/2016 Patient Education: Patient Medication Summary Completed 11/14/2016 Appointment: Lita Barakat WPtel: [address] [place], [place] [phone] [place] RESCHEDULED 11/02/2016 Visit Diagnosis Plan: Candidal stomatitis Discussion: Diflucan and Nystatin Hold atorvastatin while taking diflucan ICD-9 : 112.0 ICD-10 : B37.0 10/31/2016 Appointment: Lita Barakat WPtel: [address] [place] [address] ACUTE ILLNESS 10/31/2016 Patient Education: Patient Medication Summary Completed 10/31/2016 Appointment: Lita Barakat WPtel: [address] [place] [address] [place] Consult 10/23/2016 Appointment: Lita Barakat WPtel: [address] [place] [address] [place] CANCELED 10/18/2016 Visit Plan: Rx as above Wear O2 at all t imes as instructed by Dr Chacon Continue breathing treatments Supportive care otherwise reviewed Follow up ingrid if not improving 10/03/2016 Appointment: Lita Barakat WPtel: [address] [place] [address] [place] CANCELED 10/03/2016 Appointment: Magda Toth [address] [place] [address] ACUTE ILLNESS 10/03/2016 Patient Education: Patient Medication Summary Completed 10/03/2016 Visit Plan: Titrate requip to 1.5mg x 1 week Call if not helpful and will increase to 2mg qHS NO MORE nyquil at bedtime - discussed potential effects of decongestants on heart, oversedating himself, etc Will increase requip, then amitriptyline if needed to desired effect 09/04/2016 Appointment: Magda Toth [address] [place] [address] ACUTE ILLNESS 09/04/2016 Patient Education: Patient Medication Summary Completed 09/04/2016 Visit Plan: Stop requip and try elavil C ryotherapy as above See ENT for removal of right ear lesion 08/22/2016 Appointment: Lita Barakat WPtel: [address] [place], [place] [phone] ACUTE ILLNESS 08/22/2016 Patient Education: Patient Medication Summary Completed 08/22/2016 Visit Plan: Trial of requip 1mg q HS Res tart zoloft Recheck 1month 08/10/2016 Appointment: Lita Barakat WPtel: [address] [place] [address] ACUTE ILLNESS 08/10/2016 Patient Education: Patient Medication Summary Completed 08/10/2016 Visit Plan: Stop HCTZ Flagyl for diarrhe a Hydrate Discussed meds for restless legs Zofran prn Nausea 07/06/2016 Appointment: Lita Barakat WPtel: [address] [place] [address] 07/05 confirmed~ Hospital Follow Up 07/06/2016 Patient Education: Patient Medication Summary Completed 07/06/2016 Visit Plan: Reviewed with Dr Yuval Palacios sidering his recent history, instructed him to go straight to the ER called to notify her so she can meet him there 06/22/2016 Appointment: Magda Toth [address] [place] [address] ACUTE ILLNESS 06/22/2016 Patient Education: Patient Medication Summary Completed 06/22/2016 Visit Plan: Continue current meds Prevna r 13 and High Dose Flu given 06/13/2016 Appointment: Lita Barakat WPtel: [address] [place], [place] [phone] 06/13 confirmed~ WORK IN 06/13/2016 Patient Education: Patient Medication Summary Completed 06/13/2016 Appointment: Lita Barakat WPtel: [address] [place] [address] just went over current medications CANCELED 06/08/2016 Visit Plan: Reviewed POC with Dr Barakat Stat cbc, cmp, d dimer, troponin, bnp, ekg, cxr If any worsening of symptoms while awaiting results, patient instructed to go to ER or call 911 06/01/2016 Appointment: Magda Toth [address] [place], [place] [phone] ACUTE ILLNESS 06/01/2016 Patient Education: Patient Medication Summary Completed 06/01/2016 Referral: José Miguel Swanson WPtel: [address] 04/[address] swanson's office, patient [...] eval and treatment 04/26/2016 Appointment: Magda Toth [address] [id number] ACUTE ILLNESS 04/26/2016 Patient Education: Patient Medication Summary Completed 04/26/2016 Care Plan: Referral Order SNOMED-CT : 30 9271671 Pending 04/26/2016 Visit Plan: Left ear flushed after conse nt with warm water with peroxide with ear syringe Patient tolerated well Ear exam is wnl following flushing Follow up PRN 04/05/2016 Appointment: Magda Toth 2305 [facility] ACUTE ILLNESS 04/05/2016 Patient Education: Patient Medication Summary Completed 04/05/2016 Visit Plan: Increase Levemir to 25u sc d aily Increase sertraline to 2 full tablets daily--200mg Debrox or cerumenex to bilateral ears q HS for 3 nights then flush or fwup for fushing Check lab in 2mos then fwup 04/03/2016 Appointment: Lita Barakat WPtel: [address] [facility] 03/31 78 lm ~sl FOLLOW UP 04/03/2016 Patient Education: Patient Medication Summary Completed 04/03/2016 Visit Plan: Patient informed of correct dosage of levemir and how to administer. Patient verbalizes understanding and will call if any questions/concerns. 10 Units of Levemir given in office SC to right lower abdom en. Patient tolerated well. Site without redness/irritation. 03/13/2016 Appointment: Lita Barakattejan: [address] [place], [place] [phone] SPECIAL 03/13/2016 Patient Education: Patient Medication Summary Completed 03/13/2016 Appointment: Lita Barakat WPtel: [address] [place], [place] [phone] [place] LAB 03/06/2016 Patient Education: Patient Medication Summary Completed 03/06/2016 Visit Plan: Patient saw Dr. Chacon this week and was given prednisone taper for COPD Continue current meds Accuchecks daily Patient will return on Sunday morning for fasting lab incuding CBC, CMP, TSH, free T4, HbA1C, Lipids, Testosterone, PSA 03/02/2016 Appointment: Lita Barakat WPtel: [address] [place], [place] [phone] 03/01 confirmed ~sl FOLLOW UP 03/02/2016 Patient [...] how doing 02/17/2016 Appointment: Lita Barakat WPtel: [address] [place], [place] [phone] WORK IN 02/17/2016 Patient Education: Patient Medication Summary Completed 02/17/2016 Visit Plan: Xrays to further evaluate Alvarez spect heel spur(s) Will call with results Has had injections in the past that were helpful Dr Barakat can do them or can refer to podiatry if warranted 02/14/2016 Appointment: Magda Toth [address] [place], [place] [id number] ACUTE ILLNESS 02/14/2016 Patient Education: Patient Medication Summary Completed 02/14/2016 Visit Plan: Increase Zoloft to 150mg cooper ly 01/31/2016 Appointment: Lita Barakat WPtel: [address] [place], [place] [phone] 01/26 confirmed `sl FOLLOW UP 01/31/2016 Patient Education: Patient Medication Summary Completed 01/31/2016 Visit Plan: Decrease citalopram to 20mg q AM for 1 week then stop Start zoloft 50mg q HS for 1 week then increase to 100mg q HS 12/30/2015 Appointment: Lita Barakat WPtel: [address] [place], [place] [phone] 12/28 confirmed~sl ACUTE ILLNESS 12/30/2015 Patient Education: Patient Medication Summary Completed 12/30/2015 Visit Plan: Check Neck US 12/16/2015 Appointment: Lita Barakat WPtel: [address] [place], [place] [phone] 12/14 lm ~sl 12/15 confirmed-sp FOLLOW UP 12/16/2015 Patient Education: Patient Medication Summary Completed 12/16/2015 Care Plan: US EXAM OF HEAD AND NECK LOIN C : 71198-0 Ordered 12/16/2015 Appointment: Stephanie Rios WPtel: [address] [place], [place] [phone] 12/09 confirmed-sp 12/12 lm ~sl Patient r kareemurn call and stated he just plain forgot ~sl FOLLOW UP 12/13/2015 Visit Plan: Had changing lesions of fore head and left mastoid area removed earlier today. Follow-up in one week Will proceed with soft tissue ultrasound of neck/ left cervical lymph node if no improvement antibiotics Clindamycin 300mg PO TID 12/06/2015 Appointment: Stephanie Rios WPtel: [address] [place], [place] [address] ACUTE ILLNESS 12/06/2015 Patient Education: Patient Medication Summary Completed 12/06/2015 Referral: Lisbeth Darby WPtel: [facility] [address] [facility] 11/18/15 called luther at [place] office and confirmed time and date of appointment with patient~sl Initiated 11/18/2015 Visit Plan: Referral to Dermatology for removal of facial skin lesions Cefdinir PO bid Topical Mupirocin to skin lesions bid 11/15/2015 Appointment: Stephanie Rios WPtel: [address] [place], [place] [phone] ACUTE ILLNESS 11/15/2015 Patient Education: Patient Medication Summary Completed 11/15/2015 Visit Plan: Continue current meds Accuch ecks daily Fwup with ophthamology as scheduled Will check lab in 3mos then fwup due to recent meds that will affect blood sugar 10/05/2015 Appointment: Lita Barakat WPtel: [address] [place], [place] [phone] 10/04/15 appt confirmed cn Annual Well Visit 08/2016 Patient Education: Patient Medication Summary Completed 10/05/2015 Visit Plan: Alexis -1 sample box given Return visit in 6 weeks for fasting labs Notify for worsening symptoms such as Increased redness, swelling, pain or drainage of Rt. knee 07/22/2015 Appointment: Stephanie Rios WPtel: [address] [place], [place] [phone] 07/21 vm left cn FOLLOW UP 07/22/2015 Patient Education: Patient Medication Summary Completed 07/22/2015 Visit Plan: Continue to change dressing twice daily and apply Mupirocin Complete Doxycycline as directed. Follow-up for worsening symptoms, such as increased swelling, redness or pain. 07/01/2015 Appointment: Stephanie Rios WPtel: [address] [place], [place] [phone] FOLLOW UP 07/01/2015 Patient Education: Patient Medication Summary Completed 07/01/2015 Visit Plan: Pressure dressing applied to draining wound left knee. Instructed to change dressing twice daily and continue Mupirocin topical Doxycycline PO bid x 10 days Wound culture obtained. Wound tissue sent to pathology Follow-up in 3 days 06/28/2015 Appointment: Stephanie Rios WPtel: [address] [place], [place] [phone] ACUTE ILLNESS 06/28/2015 Patient Education: Patient Medication Summary Completed 06/28/2015 Visit Plan: Complete antibiotics Follow- up for increased tenderness, swelling or drainage. 06/09/2015 Appointment: Stephanie Rios WPtel: [address] [place], [place] [phone] 06/08/15 lm FOLLOW UP 06/09/2015 Patient Education: Patient Medication Summary Completed 06/09/2015 Visit Plan: Apply pressure dressing toda y Continue antibiotics and topical Mupirocin Follow-up in 2 days Bursa drained from open area using pressure--serosanguinous drainage 06/07/2015 Appointment: Stephanie Rios WPtel: [address] [place] [address] 06/04/15 confirmed with patient FOLLOW UP 0 06/07/2015 Patient Education: Patient Medication Summary Completed 06/07/2015 Visit Plan: Wound culture Lt. knee Apply mupirocin to open wound bid Clindamycin 600 mg PO bid x 10 days Follow-up on Sunday06/03/2015 Appointment: Stephanie Rios WPtel: [address] [place], [place] [phone] ACUTE ILLNESS 06/03/2015 Patient Education: Patient Medication Summary Completed 06/03/2015 Visit Plan: Accuchecks daily Check CMP, HbA1C today Patient is noncompliant with meds and diet but patient says he is doing everything he is supposed to do Wants to try performomist instead of albuterol in SVN 06/01/2015 Appointment: Lita Barakat WPtel: [address] [place], [place] [phone] 05/28 appt confirmed cn FOLLOW UP 06/01/20 Patient Education: Patient Medication Summary Completed 06/01/2015 Visit Plan: Change Breo Ellipta to Advai r 500/50 1 p BID this next month Continue turdoza Use albuterol prn Check CMP, HbA1C today Accuchecks daily Cryotherapy as above 02/25/2015 Appointment: Lita Barakat WPtel: [facility] 02/24 appt confirmed and explained needed payment he said ok FOLLOW UP 02/25/2015 Patient Education: Patient Medication Summary Completed 02/25/2015 Referral: Lopez Chacon [address] [facility] C&D [id number] US Will put patient on cancellation list Initiated 12/08/2014 Appointment: Lita Barakat WPtel: [address] [place], [place] [phone] Hospital Follow Up 10/29/2014 Visit Plan: Finish prednisone Continue S VNs with albuterol QID See pulmonology and start Pulmonary rehab Once again discussed taking it easy this winter--that he is high risk for exacerbation 10/27/2014 Appointment: Lita Barakat WPtel: [address] [place] [address] FOLLOW UP 10/27/2014 Patient Education: Patient Medication Summary Completed 10/27/2014 Appointment: Lita Barakat WPtel: [address] [place], [place] [phone] FOLLOW UP 10/26/2014 Appointment: Stephanie Rios WPtel: [address] [place], [place] [phone] WORK IN 10/21/2014 Patient Education: Patient Medication Summary Completed 10/21/2014 Patient Education: Patient Medication Summary Completed 10/19/2014 Visit Plan: Continue oxygen and SVNS wit h duoneb Increase farxiga to 10mg daily Diflucan 100mg daily for 1week 10/06/2014 Appointment: Lita Barakat WPtel: [address] [place], [place] [phone] [facility] appt time to 2:45pm FOLLOW UP 2014 Patient Education: Patient Medication Summary Completed 10/06/2014 Visit Plan: Finish omnicef Continue Breo BID and Turdoza Use SVNS with duoneb at least TID for next 2weeks then go to prn 09/21/2014 Appointment: Lita Barakat WPtel: [address] [place], [place] [phone] [facility] Follow Up 09/21/2014 Patient Education: Patient Medication Summary Completed 09/21/2014 Patient Education: [facility] - Saving Horacej - Ventolin HFA - 18+ - Dynamic Portal ID Completed 09/21/2014 Appointment: Stephanie Rios WPtel: [address] [place], [place] [phone] Scheduled by 09/07 patient rescheduled to 09/08 with Stephanie. Hospital Follow Up 09/08/2014 Patient Education: Patient Medication Summary Completed 09/08/2014 Appointment: Stephanie Rios WPtel: [address] [place], [place] [phone] FOLLOW UP 09/02/2014 Patient Education: Patient Medication Summary Completed 09/02/2014 Patient Education: [employer] - Antibi otics, Analgesics 18+, Oral Contraceptives F 18+ Completed 09/02/2014 Appointment: Lita Barakat WPtel: [address] [place], [place] [phone] UA 08/27/2014 Patient Education: Patient Medication Summary [...] prn sleep 08/10/2014 Appointment: Lita Barakat WPtel: [address] [place], [place] [phone] Annual Well Visit 08/10/2014 Patient Education: Patient Medication Summary Completed 08/10/2014 Appointment: Lita Barakat WPtel: [address] [place], [place] [phone] LAB 08/05/2014 Patient Education: Patient Medication Summary Completed 08/05/2014 Visit Plan: ECHO results reviewed Contin ue Breo and Turdoza Pt starts PT this afternoon for back--has had one epidural with no help in pain 05/05/2014 Appointment: Lita Barakat WPtel: [address] [place] [address] FOLLOW UP 05/05/2014 Patient Education: Patient Medication Summary Completed 05/05/2014 Visit Plan: Continue Breo and Turdoza Camargo s heart tests scheduled next week Will see surgeon for removal of skin cancer to neck after done with cardiac workup 03/24/2014 Appointment: Lita Barakat WPtel: [address] [place] [address] FOLLOW UP 03/24/2014 Patient Education: Patient Medication Summary Completed 03/24/2014 Visit Plan: Proceed with cardiology eval uation as patient is has numerous risk factors for CAD Change Symbicort to Breo 1p BID and add Turdorza 1p BID Recheck in weeks Check 2-D ECHO and lexiscan 03/10/2014 Appointment: Lita Barakat WPtel: [address] [place] [address] FOLLOW UP 03/10/2014 Patient Education: Patient Medication Summary Completed 03/10/2014 Visit Plan: Shoulder injection as above Back brace to use when doing any lifting for stability 12/16/2013 Appointment: Lita Barakat WPtel: [address] [place] [address] ACUTE ILLNESS 12/16/2013 Patient Education: Patient Medication Summary Completed 12/16/2013 Visit Plan: Continue symbicort and Turdo za Salt water gargles Omnicef 300mg 2 po daily for 1wk Phenergan with codeine 10/09/2013 Appointment: Lita Barakat WPtel: [address] [place], [place] [phone] WORK IN 10/09/2013 Patient Education: Patient Medication Summary Completed 10/09/2013 Appointment: Ruchi Buchanan WPtel: [address] [place], [place] [phone] ACUTE ILLNESS 09/18/2013 Patient Education: Patient Medication Summary Completed 09/18/2013 Visit Plan: Check on repeat CXR Finish a bx Start Tradjenta to replace metformin 08/13/2013 Appointment: Lita Barakat WPtel: [address] [place], [place] [phone] 08/12 Hospital Follow Up 08/13/2013 Patient Education: Patient Medication Summary Completed 08/13/2013 Visit Plan: Admit to hospital 08/06/2013 Appointment: Stephanie Rios WPtel: [address] [place] [address] ACUTE ILLNESS 08/06/2013 Patient Education: Patient Medication Summary Completed 08/06/2013 Visit Plan: Continue current meds Contin ue accuchecks daily Proceed with stress test due to high risk for CAD 07/16/2013 Appointment: Lita Barakat WPtel: [address] [place] [address] FOLLOW UP 07/16/2013 Patient Education: Patient Medication Summary Completed 07/16/2013 Appointment: Lita Barakat WPtel: [address] [place] [address] LAB 06/25/2013 Patient Education: Patient Medication Summary Completed 06/25/2013 Visit Plan: prednisone and azithromycin. Doing CBC and mycoplasma blood draw. Will continue inhaler and albuterol breathing treatments. 04/09/2013 Appointment: Kimberly Villalba WPtel: [address] [place] [address] ACUTE ILLNESS 04/09/2013 Patient Education: Patient Medication Summary Completed 04/09/2013 Appointment: Lita Barakat WPtel: [address] [place], [place] [phone] ACUTE ILLNESS 02/11/2013 Patient Education: Patient Medication Summary Completed 02/11/2013 Appointment: Ruchi Buchanan WPtel: [address] [place] [address] ACUTE ILLNESS 01/31/2013 Patient Education: Patient Medication Summary Completed 01/31/2013 Visit Plan: Cefdinir and medrol dose pac k. Codeine/guiaf cough syrup. Has colonoscopy on Sunday. Pt. is to notify if fever occurs or symptoms worsen. Hydration and rest. 01/20/2013 Appointment: Kimberly Villalba WPtel: [address] [place], [place] [phone] ACUTE ILLNESS 01/20/2013 Patient Education: Patient Medication Summary Completed 01/20/2013 Visit Plan: Scopalamine patch and vestib ular exercises 12/19/2012 Appointment: Lita Barakat WPtel: [address] [place], [place] [phone] ACUTE ILLNESS 12/19/2012 Patient Education: Patient Medication Summary Completed 12/19/2012 Visit Plan: Dr. Swanson consult if no impr ovement in hearing. Pt. reports he will notify if no better in one week. Willam consult for skin lesion. 10/21/2012 Appointment: Kimberly Villalba WPtel: [address] [place] [address] ACUTE ILLNESS 10/21/2012 Patient Education: Patient Medication Summary Completed 10/21/2012 Appointment: Lita Barakat WPtel: [address] [place], [place] [phone] [place] LAB 09/19/2012 Patient Education: Patient Medication Summary Completed 09/19/2012 Visit Plan: Check fasting lab in AM--CMP , Lipids, HbA1C 09/18/2012 Appointment: Lita Barakat WPtel: [address] [place], [place] [phone] FOLLOW UP 09/18/2012 Patient Education: Patient Medication Summary Completed 09/18/2012 Appointment: Lita Barakat WPtel: [address] [place], [place] [phone] appt time scheduled sooner FOLLOW UP 09/05 Visit Plan: Doxycycline and Prednisone I ncrease SVN to QID Add back Symbicort 160/4.5 2 p BID 08/28/2012 Appointment: Lita Barakat WPtel: [address] [place], [place] [phone] [place] FOLLOW UP 08/28/2012 Patient Education: Patient Medication Summary Completed 08/28/2012 Appointment: Lita Barakat WPtel: [address] [place], [place] [phone] Annual Well Visit 07/10/2012 Patient Education: Patient Medication Summary Completed 07/10/2012 Visit Plan: Finish Z-pack Add Nasonex Ad d Meclizine Vestibular exercises Continue current meds and accuchecks Check lab and fwup in 4mos 05/09/2012 Appointment: Lita Barakat WPtel: [address] [place], [place] [phone] [place] number no longer works FOLLOW UP 2 Patient Education: Patient Medication Summary Completed 05/09/2012 Appointment: Lita Barakat WPtel: [address] [place], [place] [phone] [place] LAB 05/06/2012 Patient Education: Patient Medication Summary Completed 05/06/2012 Appointment: Lita Barakat WPtel: [address] [place], [place] [phone] [place] LAB 05/02/2012 Appointment: Lita Barakat WPtel: [address] [place], [place] [phone] [place] INJECTION 02/05/2012 Patient Education: Patient Medication Summary Completed 02/05/2012 Visit Plan: cefdinir. Will focus on rest and fluids. Pt. reports he is using breathing treatments as needed. Pt. will monitor for worsening symptoms or fever. 10/02/2011 Appointment: Kimberly Villalba WPtel: [address] [place], [place] [phone] ACUTE ILLNESS 10/02/2011 Patient Education: Patient Medication Summary Completed 10/02/2011 Appointment: Lita Barakat WPtel: [address] [place], [place] [phone] [place] INJECTION 08/10/2011 Patient Education: Patient Medication Summary Completed 08/10/2011 Visit Plan: Continue current meds Restar t Advair Restart exercise Flu shot given 08/07/2011 Appointment: Lita Barakattel: [address] [place] [address] [place] FOLLOW UP 08/07/2011 Patient Education: Patient Medication Summary Completed 08/07/2011 Appointment: Lita Barakattel: [address] [place], [place] [phone] [place] LAB 07/26/2011 Patient Education: Patient Medication Summary Completed 07/26/2011 Visit Plan: ALEKSANDER Floresetta Continue Metformin but change to BID Add Lantus 25u sc q PM BS readings in 1wk 04/03/2011 Appointment: Lita Barakattel: [address] [place] [address] ACUTE ILLNESS 04/03/2011 Patient Education: Patient Medication Summary Completed 04/03/2011 Appointment: Lita Barakattel: [address] [place] [address] [place] INJECTION 01/19/2011 Patient Education: Patient Medication Summary Completed 01/19/2011 Appointment: Lita Barakattel: [address] [place] [address] ACUTE ILLNESS 01/18/2011 Patient Education: Patient Medication Summary Completed 01/18/2011 Appointment: Lita Barakattel: [address] [place], [place] [phone] [place] INJECTION 12/21/2010 Patient Education: Patient Medication Summary Completed 12/21/2010 Appointment: Lita Barakat WPtel: [address] [place] [address] [place] FOLLOW UP 12/19/2010 Patient Education: Patient Medication Summary Completed 12/19/2010 Appointment: Lita Barakattel: [address] [place], [place] [phone] [place] LAB 12/07/2010 Patient Education: Patient Medication Summary Completed 12/07/2010 Appointment: Kimberly Villalbatel: [address] [place], [place] [phone] ACUTE ILLNESS 04/05/2010 Patient Education: Patient Medication Summary Completed 04/05/2010 Appointment: Lita Barakat WPtel: [address] [place], [place] [phone] [place] WORK IN 03/14/2010 Patient Education: Patient Medication Summary Completed 03/14/2010 Appointment: Lita Barakat WPtel: [address] [place], [place] [phone] [place] LAB 03/02/2010 Visit Plan: HbA1C in 3mos. Continue Accu checks BID alternating times. Switch lexapro to celexa 01/13/2010 Appointment: Lita Barakat WPtel: [address] [place], [place] [phone] FOLLOW UP 01/13/2010 Patient Education: Patient Medication Summary Completed 01/13/2010 Appointment: Lita Barakat WPtel: [address] [place], [place] [phone] [place] FOLLOW UP 01/11/2010 Visit Plan: Pt. will continue the Avalox and Doxycycline regimen as prescribed the previous day. He has been advised to continue inhalers, breathing treatments and oxygen therapy for at least the weekend. Moderate activity without strenuous exercise. The pt. will seek immediate re-eval if his symptoms worsen. 12/23/2009 Appointment: Kimberly Villalba WPtel: [address] [place], [place] [phone] FOLLOW UP 12/23/2009 Patient Education: Patient Medication [...] tomorrow morning. 12/22/2009 Appointment: Kimberly Villalba WPtel: [address] [place] [address] ACUTE ILLNESS 12/22/2009 Patient Education: Patient Medication Summary Completed 12/22/2009 Appointment: Kimberly Villalba WPtel: [address] [place] [address] FOLLOW UP 12/21/2009 Appointment: Lita Barakat WPtel: [address] [place] [address] [place] INJECTION 12/16/2009 Patient Education: Patient Medication Summary Completed 12/16/2009 Appointment: Kimberly Villalba WPtel: [address] [place] [address] ACUTE ILLNESS 12/13/2009 Patient Education: Patient Medication Summary Completed 12/13/2009 Care Plan: X-RAY EXAM OF SHOULDER lt shoulder (pain ra diates across the shoulder) Hand carried orders to [facility] LOINC : 72336-7 Ordered 12/13/2009 Care Plan: X-RAY EXAM THORAC SPINE 2VWS Hand carried order LOINC : 66205-7 Ordered 12/13/2009 Care Plan: X-RAY EXAM RIBS UNI 2 VIEWS Posterior ribs of lt. side Pt. hand carries order to [facility] LOINC : 52525-7 Ordered 12/13/2009 Referral: José Miguel Swanson WPtel: [address] [address] [place] Referral Appointment Requested Referral: José Miguel Swanson WPtel: [address] [address] [place] Referral Appointment Requested Referral: Chandu Quarles WPtel: [address] Quarles for screening colonoscopy. P atient notified that [facility] office will book appt with him Initiated Referral: Santosh Machado WPtel: [address] [facility] [place] Referral Appointment Requested Referral: José Miguel Swanson WPtel: [address] [address] [place] Referral Initiated Referral: Lopez Chacon [address] [facility] [place] [address] [place] Referral Initiated Referral: Demetrius Benjamin WPtel: [address] [address] [place] Referral Appointment Requested Referral: José Miguel Swanson WPtel: [address] [address] [place] Referral Appointment Requested Referral: José Miguel Swanson WPtel: [address] [address] [place] Referral Initiated Instructions Comment . Saline nasal flushes prn. Tylenol/Motr in prn headache. Notify if persists/symptoms worsening. . MRI at [facility] Hydrocodone 5.325 1 po q 4-6 hours prn pain #40 NR and Cyclobenzaprine (ERx) Continue warm packs for pain RTC if no improvement . May take OTC Tylenol/Ibuprofen as dire cted XRay at [facility] of left shoulder Tramadol 50mg 1 po q 6 hours prn pain called to [facility]. Sedation warning given (no driving, etc) RTC [...]
--- OUTSIDE RECORDS SUMMARY | 2019-12-31 00:29 | XMS REPORT | CCD ---
Author Author Leandro Barakat D.O. 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 Name Role Phone Lita Barakat D.O., PP Unavailable CCM Unavailable Summary Purpose Interface Exchange Insurance Providers Payer name Policy type / Coverage type Covered constitution party ID Effective Begin Date Effective End Date [employer] Medicare Part B [id number] 2018 Unknown Family history Brother Diagnosis Age At Onset Cancer Unknown Father Diagnosis Age At Onset Heart disease Unknown Mother Diagnosis Age At Onset Heart disease Unknown Social History Social History Element Codes Description Effective Dates Tobacco history SNOMED CT: 0297335 Former smoker quit 15 years ago 08/07/2011 [...] Problems Condition Codes Effective Dates Condition Status Basal cell carcinoma, face ICD-9: 173.31 ICD-10: [...] unspecified ICD-9: 268.9 ICD-10: E55.9 05/08/2019 Active Insomnia, unspecified ICD-9: 780.52 ICD-10: G47.00 09/03/2016 Active Pain in right knee ICD-9: 719.46 ICD-10: M25.561 12/17/2017 Active Dizziness and giddiness ICD-9: 780.4 ICD-10: [...] hypoxia ICD-9: 518.83 ICD-10: J96.11 12/25/2018 Active Patient's noncompliance with other medical treatment a nd regimen ICD-9: V15.81 ICD-10: Z91.19 12/25/2018 Active Acute recurrent maxillary sinusitis ICD-9: [...] R07.9 06/22/2016 Active Atherosclerotic heart disease of [place] coronary arter y without angina pectoris ICD-9: [...] Start Date Stop Date Status Fill Instructions ipratropium 0.5 mg-albuterol 3 mg (2.5 mg base)/3 mL n ebulization soln RxNorm: 0641073 USE 1 VIAL IN NEBULIZER Q4H (THIS REPLACES ALBUTEROL S OLUTION) 11/27/2019 12/16/2019 Active hydrocodone 10 mg-acetaminophen 325 mg tablet RxNorm: 187211 1 Tablet(s) Oral Q4H as needed for pain 11/13/2019 No Stop Date Active Seroquel 50 mg tablet RxNorm: 543576 1 Tablet(s) Oral QPM as ne eded for sleep 10/07/2019 12/05/2019 Active ropinirole 4 mg tablet RxNorm: 657795 3 TABLET(S) [facility] AT BED[facility] FOR RESTLESS LEGS 09/29/2019 12/27/2019 Active Generic For:REQU IP 4 MG TABLET 09/29/2019 7:52:42 AM N O T I C E Last quantity doesn't match original quantity ropinirole 4 mg tablet RxNorm: 856838 3 TABLET(S) BY [facility] DAILY AT BEDTIME FOR RESTLESS LEGS 09/26/2019 09/28/2019 Inactive Generic For:REQU IP 4 MG TABLET 09/26/2019 9:08:48 AM N O T I C E Last quantity doesn't match original quantity ipratropium 0.5 mg-albuterol 3 mg (2.5 mg base)/3 mL n ebulization soln RxNorm: 6353837 USE 1 VIAL IN NEBULIZER EVERY FOUR HOURS (THIS REPLACES ALBUTEROL SOLUTION) 09/26/2019 10/15/2019 Inactive Generic For:*DUO NEB 2.5-0.5 MG/3 ML SOLN 09/26/2019 9:08:53 AM hydrocodone 10 mg-acetaminophen 325 mg tablet RxNorm: 511274 1 Tablet(s) Oral Q4H as needed for pain 09/09/2019 09/09/2019 Inactive hydrocodone 10 mg-acetaminophen 325 mg tablet RxNorm: 451624 1 Tablet(s) Oral Q4H as needed for pain 09/09/2019 09/08/2019 Inactive ondansetron HCl 4 mg tablet RxNorm: 334707 1 Tablet(s) Oral QPM for nausea 08/12/2019 10/10/2019 Inactive ipratropium 0.5 mg-albuterol 3 mg (2.5 mg base)/3 mL n ebulization soln RxNorm: 7385904 1 Unit Dose INH Q4H 08/12/2019 09/25/2019 Inactive replaces albuterol solution Augmentin 875 mg-125 mg tablet RxNorm: 382081 1 Tablet(s) Oral two times a day 08/07/2019 08/17/2019 Inactive prednisone 20 mg tablet RxNorm: 969690 1 Tablet(s) Oral QD 08/05/2008/04/2019 Inactive prednisone 20 mg tablet RxNorm: 244944 1 Tablet(s) Oral QD 08/05/2008/06/2019 Inactive Levaquin 500 mg tablet RxNorm: 423654 1 Tablet(s) Oral QD Replaces azithromycin (z-pack) 07/31/2019 08/05/2019 Inactive Levaquin 500 mg tablet RxNorm: 032981 1 Tablet(s) Oral QD Replaces azithromycin (z-pack) 07/21/2019 07/26/2019 Inactive Levaquin 500 mg tablet RxNorm: 482665 1 Tablet(s) Oral QD Replaces azithromycin (z-pack) 07/21/2019 07/20/2019 Inactive Zithromax Z-Gui 250 mg tablet RxNorm: 303346 Tablet(s) Oral 019 07/22/2019 Inactive Zithromax Z-Gui 250 mg tablet RxNorm: 335888 Tablet(s) Oral 019 07/15/2019 Inactive Symbicort 160 mcg-4.5 mcg/actuation HFA aerosol inhaler RxNo rm: 1535184 2 Puff(s) Inhalation two times a day 07/14/2019 07/14/2019 Inactive Tessalon Perles 100 mg capsule RxNorm: 354045 1 Capsule(s) Oral Q8H as needed 07/14/2019 08/06/2019 Inactive Seroquel 50 mg tablet RxNorm: 911325 1 Tablet(s) Oral QPM as ne eded for sleep 07/01/2019 10/06/2019 Inactive ondansetron HCl 4 mg tablet RxNorm: 020753 1 Tablet(s) Oral QPM for nausea 06/24/2019 07/24/2019 Inactive Seroquel 25 mg tablet RxNorm: 624785 1 Tablet(s) Oral every nig ht at bedtime 06/19/2019 06/18/2019 Inactive Seroquel 25 mg tablet RxNorm: 782909 1 Tablet(s) Oral every nig ht at bedtime 06/19/2019 06/30/2019 Inactive trazodone 150 mg tablet RxNorm: 544073 1/2 Tablet(s) PO QHS as needed for sleep 06/11/2019 06/17/2019 Inactive replaces PA on doxep in trazodone 150 mg tablet RxNorm: 794799 1/2 Tablet(s) PO QHS as needed for sleep 05/12/2019 06/11/2019 Inactive replaces PA on doxep in cyanocobalamin (vit B-12) 1,000 mcg/mL injection solution Rx Norm: 597371 1 injection weekly for 4 weeks 1 Milliliter(s) Inj 05/09/2019 No Stop Date Active Vitamin D3 5,000 unit tablet RxNorm: 244456 1 Tablet(s) PO QD 05/09 No Stop Date Active ferrous sulfate 325 mg (65 mg iron) tablet RxNorm: 796136 1 Tab let(s) PO QD 05/09/2019 No Stop Date Active magnesium oxide 400 mg (241.3 mg magnesium) tablet RxNorm: 1 54102 1 Tablet(s) PO QHS 05/09/2019 No Stop Date Active ropinirole 4 mg tablet RxNorm: 796213 3 TABLET(S) BY [facility] DAILY AT BEDTIME FOR RESTLESS LEGS 03/26/2019 06/23/2019 Inactive Generic For:REQU IP 4 MG TABLET 03/26/2019 11:23:36 AM N O T I C E Last quantity doesn't match original quantity pantoprazole 40 mg tablet,delayed release RxNorm: 625796 Tablet(s) TAKE 1 TABLET BY MOUTH DAILY FOR STOMACH 03/24/2019 06/21/2019 Inactive Gener ic For:PROTONIX 40MG TAB EC 01/03/2019 1:23:44 PM hydroxyzine HCl 10 mg tablet RxNorm: 091672 1 Tablet(s) PO BID as needed 03/24/2019 04/06/2019 Inactive ipratropium-albuterol 0.5 mg-3 mg(2.5 mg base)/3 mL ne bulization soln RxNorm: 8355460 1 Unit Dose INH Q4H 03/21/2019 No Stop Date Active replaces albuterol solution meclizine 12.5 mg tablet RxNorm: 355405 1 Tablet(s) PO BID as neede d 03/21/2019 No Stop Date Active losartan 100 mg tablet RxNorm: 689889 1 Tablet(s) PO QD replace s lisinopril 03/13/2019 09/08/2019 Inactive fluconazole 100 mg tablet RxNorm: 624970 1 Tablet(s) PO QD 03/13/20 19 03/19/2019 Inactive nystatin 100,000 unit/mL oral suspension RxNorm: 416765 5 Unit( s) PO QID 03/13/2019 03/26/2019 Inactive tramadol 50 mg tablet RxNorm: 021749 1 Tablet(s) PO TID as needed for pain TAKE 2 TABS OF EXTRA STRENGTH TYLENOL WITH EACH DOSE 03/10/2019 04/06/2019 Inactive Generic For:*ULTRAM 50 MG TABLET 01/15/2019 4:55:26 PM Sinemet CR 50 mg-200 mg tablet,extended release RxNorm: 8343 41 1 Tablet(s) PO TID 02/26/2019 08/24/2019 Inactive Generic For:*SIN EMET CR 50/200 TABLET SA 07/08/2018 3:09:11 PM trazodone 150 mg tablet RxNorm: 398852 1/2 Tablet(s) PO QHS as needed for sleep 02/13/2019 02/12/2019 Inactive trazodone 150 mg tablet RxNorm: 749166 1/2 Tablet(s) PO QHS as needed for sleep 02/13/2019 02/25/2019 Inactive replaces PA on doxep in doxepin 10 mg capsule RxNorm: 3415511 1-2 Capsule(s) PO QHS prn sleep 02/13/2019 02/13/2019 Inactive Novolog U-100 Insulin aspart 100 unit/mL subcutaneous soluti on RxNorm: 464113 INJECT 10 UNIT(S) SUBCUTANEOUSLY BEFORE MEALS 01/31/2019 05/30/2019 In active 01/31/2019 1:39:10 PM ipratropium-albuterol 0.5 mg-3 mg(2.5 mg base)/3 mL ne bulization soln RxNorm: 2252218 1 Unit Dose INH Q4H 01/17/2019 03/20/2019 Inactive replaces albuterol solution tramadol 50 mg tablet RxNorm: 948156 1 Tablet(s) PO TID as needed for pain TAKE 2 TABS OF EXTRA STRENGTH TYLENOL WITH EACH DOSE 01/15/2019 02/03/2019 Inactive Generic For:*ULTRAM 50 MG TABLET 01/15/2019 4:55:26 PM Sinemet CR 50 mg-200 mg tablet,extended release RxNorm: 8343 41 1 Tablet(s) PO BID 01/03/2019 02/25/2019 Inactive Generic For:*SIN EMET CR 50/200 TABLET SA 07/08/2018 3:09:11 PM losartan 100 mg tablet RxNorm: 803193 1 Tablet(s) PO QD replace s lisinopril 01/03/2019 03/12/2019 Inactive Symbicort 160 mcg-4.5 mcg/actuation HFA aerosol inhaler RxNo rm: 5485575 2 Puff(s) INH BID 01/03/2019 01/02/2019 Inactive pantoprazole 40 mg tablet,delayed release RxNorm: 196770 TAKE 1 TABLET BY MOUTH DAILY FOR STOMACH 01/03/2019 03/23/2019 Inactive Generic For:HI OTONIX 40MG TAB EC 01/03/2019 1:23:44 PM nystatin 100,000 unit/mL oral suspension RxNorm: 731827 Unit(s) 5 Unit(s) PO QID swish and spit 01/02/2019 11/11/2019 Inactive Incruse Ellipta 62.5 mcg/actuation powder for inhalation RxN orm: 3811351 1 Capsule(s) INH QD 12/25/2018 No Stop Date Active Tessalon Perles 100 mg capsule RxNorm: 274533 1 Capsule(s) PO T ID for cough 12/25/2018 02/25/2019 Inactive Medrol (Gui) 4 mg tablets in a dose pack RxNorm: 700525 Tablet(s) PO Use as directed 12/23/2018 01/02/2019 Inactive Levemir FlexTouch U-100 Insulin 100 unit/mL (3 mL) sub cutaneous pen RxNorm: 812210 20 Unit(s) SQ QD with pen needles 12/13/2018 05/11/2019 Inactiv e prednisone 20 mg tablet RxNorm: 961232 1 Tablet(s) PO QD 12/12/2018 0 12/11/2018 Inactive prednisone 20 mg tablet RxNorm: 328432 1 Tablet(s) PO QD 12/12/2018 0 12/16/2018 Inactive promethazine 6.25 mg-codeine 10 mg/5 mL syrup RxNorm: 595686 5 Milliliter(s) PO QHS as needed for cough 12/09/2018 12/18/2018 Inactive cefdinir 300 mg capsule RxNorm: 877799 1 Capsule(s) PO BID 12/10/1912/18/2018 Inactive fluconazole 100 mg tablet RxNorm: 142686 1 Tablet(s) PO QD 12/06/1912/08/2018 Inactive ropinirole 4 mg tablet RxNorm: 307994 3 Tablet(s) PO QHS for re stless legs 12/04/2018 03/03/2019 Inactive Novolog U-100 Insulin aspart 100 unit/mL subcutaneous soluti on RxNorm: 270057 INJECT 10 UNIT(S) SUBCUTANEOUSLY BEFORE MEALS 12/04/2018 01/30/2019 In active 12/04/2018 10:02:42 AM nystatin 100,000 unit/mL oral suspension RxNorm: 763665 5 Unit(s) PO QID swish and spit 11/25/2018 12/18/2018 Inactive ropinirole 4 mg tablet RxNorm: 792327 3 Tablet(s) PO QHS for re stless legs 11/04/2018 12/03/2018 Inactive prednisone 20 mg tablet RxNorm: 545561 1 Tablet(s) PO BID 10/23/2018 10/29/2018 Inactive ropinirole 4 mg tablet RxNorm: 484086 3 Tablet(s) PO QHS for re stless legs 10/14/2018 11/04/2018 Inactive pantoprazole 40 mg tablet,delayed release RxNorm: 140862 1 Tablet(s) PO QD forstomach 10/10/2018 01/02/2019 Inactive Symbicort 160 mcg-4.5 mcg/actuation HFA aerosol inhaler RxNo rm: 0727817 2 Puff(s) INH BID 10/10/2018 01/03/2019 Inactive Novolog U-100 Insulin aspart 100 unit/mL subcutaneous soluti on RxNorm: 571934 INJECT 10 UNIT(S) SUBCUTANEOUSLY BEFORE MEALS 10/10/2018 12/03/2018 In active 10/10/2018 11:30:01 AM Sinemet CR 50 mg-200 mg tablet,extended release RxNorm: 8343 41 1 Tablet(s) PO BID 09/26/2018 01/03/2019 Inactive Generic For:*SIN EMET CR 50/200 TABLET SA 07/08/2018 3:09:11 PM ropinirole 4 mg tablet RxNorm: 152226 2 Tablet(s) PO QHS for re stless legs 09/18/2018 10/13/2018 Inactive metformin ER 1,000 mg tablet,extended release 24hr RxNorm: 1 271962 1 Tablet(s) PO BID 09/09/2018 12/18/2018 Inactive ropinirole 4 mg tablet RxNorm: 628934 2 Tablet(s) PO QHS for re stless legs 08/21/2018 09/17/2018 Inactive doxycycline hyclate 100 mg capsule RxNorm: 6558332 1 Capsule(s) PO BID 08/07/2018 08/13/2018 Inactive ropinirole 4 mg tablet RxNorm: 764162 1 Tablet(s) PO QHS replac es 1mg dose 08/07/2018 08/20/2018 Inactive ropinirole 2 mg tablet RxNorm: 633563 TAKE 3 TABLETS BY MOUTH DAILY AT BEDTIME DO NOT EXCEED 3 TABLETS PER DAY!!!! 07/31/2018 08/06/2018 Inactive Generic For:REQUIP 2 MG TABLET 07/30/2018 3:50:28 PM Symbicort 160 mcg-4.5 mcg/actuation HFA aerosol inhaler RxNo rm: 6167429 2 Puff(s) INH BID 07/12/2018 10/09/2018 Inactive Sinemet CR 50 mg-200 mg tablet,extended release RxNorm: 8343 41 TAKE 1 TABLET BY MOUTH TWICE DAILY 07/08/2018 09/26/2018 Inactive Generic For:*S INEMET CR 50/200 TABLET SA 07/08/2018 3:09:11 PM losartan 100 mg tablet RxNorm: 176058 1 Tablet(s) PO QD replace s lisinopril 06/17/2018 12/13/2018 Inactive Novolog U-100 Insulin aspart 100 unit/mL subcutaneous soluti on RxNorm: 507442 10 Unit(s) SQ AC 06/17/2018 10/09/2018 Inactive albuterol sulfate 2.5 mg/3 mL (0.083 %) solution for n ebulization RxNorm: 988762 Milliliter(s) INH USE 1 VIAL IN NEBULIZE R EVERY FOUR HOURS NEEDED FOR WHEEZING OR SHORTNESS OF BREATH 06/13/2018 01/16/2019 Inactive Generic For:*PROVENTIL 0.83 MG/ML SOLUTN 06/13/2013 2:04:46 PM ropinirole 2 mg tablet RxNorm: 537071 3 Tablet(s) PO QH S DO NOT EXCEED 6MG (3 TABLETS) PER DAY!!!! 06/13/2018 07/31/2018 Inactive atorvastatin 40 mg tablet RxNorm: 061396 Tablet(s) TAKE 1 TABLET BY MOUTH EVERY DAY 05/13/2018 12/18/2018 Inactive Generic For:LIPI TOR 40MG TAB 05/01/2018 8:37:31 AM Sinemet CR 50 mg-200 mg tablet,extended release RxNorm: 8343 41 1 Tablet(s) PO BID 05/08/2018 07/06/2018 Inactive Lidocaine Viscous 2 % mucosal solution RxNorm: 7651994 5 Milliliter(s) PO QID as needed 05/02/2018 08/06/2018 Inactive Diflucan 100 mg tablet RxNorm: 508255 1 Tablet(s) PO QD 05/02/2018 Inactive atorvastatin 40 mg tablet RxNorm: 937519 TAKE 1 TABLET BY MOUTH EVERY DAY 05/01/2018 05/13/2018 Inactive Generic For:LIPITOR 40MG TAB 05/01/2018 8:37:31 AM nystatin 100,000 unit/mL oral suspension RxNorm: 634012 5 Unit(s) PO QID (before meals and at bedtime) 04/24/2018 04/30/2018 Inactive Ventolin HFA 90 mcg/actuation aerosol inhaler RxNorm: 385123 2 Puff(s) INH Q4H as needed one inhaler for home and one inhaler for car 04/23/201812/18 Inactive Mucinex 600 mg tablet, extended release RxNorm: 115919 1 Tablet(s) PO BID for congestion 04/22/2018 05/21/2018 Inactive prednisone 10 mg tablet RxNorm: 758160 Tablet(s) PO as directeds 08/06/2018 Inactive ropinirole 2 mg tablet RxNorm: 159228 3 Tablet(s) PO QH S DO NOT EXCEED 6MG (3 TABLETS) PER DAY!!!! 04/09/2018 05/08/2018 Inactive gabapentin 300 mg capsule RxNorm: 220014 1-2 Capsule(s) PO QHS 02/201804/08/2018 Inactive ropinirole 2 mg tablet RxNorm: 340408 1 Tablet(s) PO QHS 03/28/2018 0 04/08/2018 Inactive gabapentin 300 mg capsule RxNorm: 397935 1-2 Capsule(s) PO QHS 02/2303/29/2018 Inactive gabapentin 300 mg capsule RxNorm: 358682 1-2 Capsule(s) PO QHS 02/2203/13/2018 Inactive gabapentin 300 mg capsule RxNorm: 666942 2 Capsule(s) PO QHS 201703/11/2018 Inactive ropinirole 2 mg tablet RxNorm: 672993 1 Tablet(s) PO QHS 02/28/2018 0 03/28/2018 Inactive ropinirole 2 mg tablet RxNorm: 363870 1 Tablet(s) PO QHS 02/28/2018 0 02/27/2018 Inactive gabapentin 300 mg capsule RxNorm: 961529 1 Capsule(s) PO QHS 201702/27/2018 Inactive pantoprazole 40 mg tablet,delayed release RxNorm: 412328 1 Tablet(s) PO QD [facility] 01/23/2018 05/22/2018 Inactive Voltaren 1 % topical gel RxNorm: 328164 1 Gram(s) TOP QID to ri ght knee 01/23/2018 02/04/2018 Inactive metformin ER 500 mg tablet,extended release 24hr RxNorm: 860 975 2 Tablet(s) PO BID 01/09/2018 12/08/2018 Inactive Requip 1 mg tablet RxNorm: 604914 1 Tablet(s) PO QHS 01/09/201802/27 Inactive prednisone 20 mg tablet RxNorm: 229361 1 Tablet(s) PO T ID for 3 days then 1 po BID for 3 days then one daily for 3 days 01/02/2018 02/03/2018 Inactiv e Levaquin 500 mg tablet RxNorm: 573202 1 Tablet(s) PO QD 01/02/2018 Inactive ProAir HFA 90 mcg/actuation aerosol inhaler RxNorm: 170973 2 Puff(s) INH Q4H as needed 12/28/2017 No Stop Date Active please switch to ventolin if insurance doesn't cover montelukast 10 mg tablet RxNorm: 579626 1 Tablet(s) PO QD 12/28/2017 02/03/2018 Inactive Levaquin 500 mg tablet RxNorm: 577556 1 Tablet(s) PO QD 12/21/2017 Inactive ProAir HFA 90 mcg/actuation aerosol inhaler RxNorm: 493072 2 Puff(s) INH Q4H as needed 12/21/2017 12/27/2017 Inactive please switch to ventolin if insurance doesn't cover doxycycline hyclate 100 mg tablet RxNorm: 839370 1 Tablet(s) PO BID 12/17/2017 12/26/2017 Inactive Levemir FlexTouch U-100 Insulin 100 unit/mL (3 mL) sub cutaneous pen RxNorm: 220334 20 Unit(s) SQ QD with pen needles---Due for labs 12/11/2017 02/03/2018 Inactive Requip 1 mg tablet RxNorm: 884939 1 Tablet(s) PO QHS 12/10/201712/09 Inactive Requip 1 mg tablet RxNorm: 052387 1 Tablet(s) PO QHS 12/10/201701/09 Inactive albuterol sulfate 2.5 mg/3 mL (0.083 %) solution for n ebulization RxNorm: 381728 Milliliter(s) INH USE 1 VIAL IN NEBULIZE R EVERY FOUR HOURS NEEDED FOR WHEEZING OR SHORTNESS OF BREATH 12/05/2017 06/13/2018 Inactive Generic For:*PROVENTIL 0.83 MG/ML SOLUTN 06/13/2013 2:04:46 PM Tudorza Pressair 400 mcg/actuation breath activated RxNorm: 9831899 1 Puff(s) INH BID 12/03/2017 12/10/2017 Inactive Levemir FlexTouch U-100 Insulin 100 unit/mL (3 mL) sub cutaneous pen RxNorm: 614312 10 Unit(s) SQ QD with pen needles---Due for labs 11/16/2017 12/10/2017 Inactive Zofran ODT 4 mg disintegrating tablet RxNorm: 456015 1 Tablet(s) PO Q4H as needed for nausea 10/17/2017 02/04/2018 Inactive Efudex 5 % topical cream RxNorm: 319196 Application TOP QD prn to precancer skin lesions 10/17/2017 02/03/2018 Inactive Sinemet CR 50 mg-200 mg tablet,extended release RxNorm: 8343 41 1 Tablet(s) PO BID 10/17/2017 02/05/2018 Inactive Sinemet CR 50 mg-200 mg tablet,extended release RxNorm: 8343 41 1 Tablet(s) PO QHS 09/25/2017 10/16/2017 Inactive gabapentin 600 mg tablet RxNorm: 647844 1 Tablet(s) PO BID 08/15/20 17 08/14/2017 Inactive gabapentin 600 mg tablet RxNorm: 560745 1 Tablet(s) PO BID 08/15/20 17 12/10/2017 Inactive Novolog U-100 Insulin aspart 100 unit/mL subcutaneous soluti on RxNorm: 292854 10 Unit(s) SQ AC 08/15/2017 02/03/2018 Inactive Novolog 100 unit/mL subcutaneous solution RxNorm: 871497 10 Uni t(s) SQ AC 08/13/2017 08/14/2017 Inactive prednisone 20 mg tablet RxNorm: 981604 2 Tablet(s) PO QD 08/02/2017 1 10/04/2016 Inactive gabapentin 600 mg tablet RxNorm: 307520 Tablet(s) 1 Tab let(s) PO QHS replaces 300mg dose 07/09/2017 08/14/2017 Inactive Breo Ellipta 100 mcg-25 mcg/dose powder for inhalation RxNor m: 8796241 1 Unit Dose INH QD 07/02/2017 08/30/2017 Inactive Tudorza Pressair 400 mcg/actuation breath activated RxNorm: 3428591 1 Puff(s) INH BID 06/18/2017 12/02/2017 Inactive gabapentin 600 mg tablet RxNorm: 401727 1 Tablet(s) PO QHS repl aces 300mg dose 06/14/2017 07/08/2017 Inactive metformin ER 1,000 mg tablet,extended release 24hr RxNorm: 1 877035 1 Tablet(s) PO BID 05/29/2017 01/08/2018 Inactive cyclobenzaprine 5 mg tablet RxNorm: 343789 1 Tablet(s) PO TID 05/2906/07/2017 Inactive metformin ER 1,000 mg tablet,extended release 24hr RxNorm: 8 87090 1 Tablet(s) PO BID 05/25/2017 05/28/2017 Inactive metformin ER 1,000 mg tablet,extended release 24hr RxNorm: 8 84761 1 Tablet(s) PO BID 05/22/2017 05/24/2017 Inactive Amaryl 2 mg tablet RxNorm: 074188 1 Tablet(s) PO BID 05/01/201702/03 Inactive glimepiride 2 mg tablet RxNorm: 604343 1 Tablet(s) PO BID 04/19/2017 02/03/2018 Inactive ferrous sulfate 325 mg (65 mg iron) tablet RxNorm: 102508 1 Tab let(s) PO QHS 04/17/2017 02/03/2018 Inactive Requip 4 mg tablet RxNorm: 711988 1 Tablet(s) PO BID 04/12/201704/11 Inactive Requip 4 mg tablet RxNorm: 057628 1 Tablet(s) PO BID 04/12/201704/15 Inactive Levemir FlexTouch 100 unit/mL (3 mL) subcutaneous insulin pe n RxNorm: 328264 10 Unit(s) SQ QD with pen needles---Due for labs 04/05/2017 11/15/2017 In active Silenor 3 mg tablet RxNorm: 559530 1 Tablet(s) PO QHS 04/05/201709/25 Inactive ropinirole 4 mg tablet RxNorm: 731837 1 Tablet(s) PO QHS 03/29/2017 0 04/01/2017 Inactive ropinirole 4 mg tablet RxNorm: 516223 1 Tablet(s) PO QHS 03/29/2017 0 03/28/2017 Inactive Requip 4 mg tablet RxNorm: 964982 1 Tablet(s) PO QHS 03/28/201704/01 Inactive gabapentin 600 mg tablet RxNorm: 988500 1 Tablet(s) PO QHS repl aces 300mg dose 03/28/2017 04/15/2017 Inactive Requip 4 mg tablet RxNorm: 329534 1 Tablet(s) PO QHS 03/23/201703/27 Inactive gabapentin 600 mg tablet RxNorm: 103359 1 Tablet(s) PO QHS 03/13/20 17 03/12/2017 Inactive gabapentin 600 mg tablet RxNorm: 187391 1 Tablet(s) PO QHS 03/13/20 17 03/27/2017 Inactive gabapentin 300 mg capsule RxNorm: 258369 1 Capsule(s) PO QPM 201603/12/2017 Inactive Generic For:NEURONTIN 300 MG CAPSULE 01/22/2017 10:10:39 AM losartan 100 mg tablet RxNorm: 043732 1 Tablet(s) PO QD replace s lisinopril 02/21/2017 06/17/2018 Inactive gabapentin 300 mg capsule RxNorm: 311753 TAKE 1 CAPSULE BY MOUT H EVERY EVENING 01/22/2017 02/21/2017 Inactive Generic For:NEURONTI N 300 MG CAPSULE 01/22/2017 10:10:39 AM gabapentin 300 mg capsule RxNorm: 028509 1 Capsule(s) PO QPM 201601/21/2017 Inactive Requip 4 mg tablet RxNorm: 276893 1 Tablet(s) PO QHS 12/21/201603/20 Inactive Effient 10 mg tablet RxNorm: 540884 1 Tablet(s) PO QD 12/12/201612/23 Inactive gabapentin 300 mg capsule RxNorm: 750120 1 Capsule(s) PO QPM 201612/03/2016 Inactive gabapentin 300 mg capsule RxNorm: 448101 1 Capsule(s) PO QPM 201612/13/2016 Inactive Requip 4 mg tablet RxNorm: 745456 1 Tablet(s) PO QHS 11/28/201612/21 Inactive atorvastatin 40 mg tablet RxNorm: 025838 Tablet(s) 1 Tablet(s) PO Q D 11/22/2016 08/18/2017 Inactive atorvastatin 40 mg tablet RxNorm: 573702 1 Tablet(s) PO QD 11/23/19 17 11/21/2016 Inactive ropinirole 1 mg tablet RxNorm: 699712 2.5 Tablet(s) PO QPM for legs/sleep 11/14/2016 11/27/2016 Inactive nystatin 100,000 unit/mL oral suspension RxNorm: 180902 5 Unit(s) PO QID swish and spit 10/31/2016 02/03/2018 Inactive fluconazole 100 mg tablet RxNorm: 130487 1 Tablet(s) PO QD 10/31/19 17 11/09/2016 Inactive doxycycline hyclate 100 mg capsule RxNorm: 1971250 1 Capsule(s) PO BID 10/03/2016 10/12/2016 Inactive Levemir FlexTouch 100 unit/mL (3 mL) subcutaneous insulin pe n RxNorm: 173057 10 Unit(s) SQ QD with pen needles 09/18/2016 04/04/2017 Inactive amitriptyline 25 mg tablet RxNorm: 126506 1 Tablet(s) P O QHS as needed for sleep 09/04/2016 10/17/2016 Inactive ropinirole 1 mg tablet RxNorm: 199438 1.5 Tablet(s) PO QPM for legs/sleep 09/04/2016 11/13/2016 Inactive amitriptyline 25 mg tablet RxNorm: 546977 1 Tablet(s) P O QHS as needed for sleep 08/22/2016 09/03/2016 Inactive clopidogrel 75 mg tablet RxNorm: 341367 1 Tablet(s) PO QD 08/10/2016 10/17/2016 Inactive Zoloft 100 mg tablet RxNorm: 314980 2 Tablet(s) PO QHS 08/10/2016 Inactive atorvastatin 40 mg tablet RxNorm: 950854 1 Tablet(s) PO QD 08/10/2010/17/2016 Inactive ropinirole 1 mg tablet RxNorm: 928238 1 Tablet(s) PO QPM for le gs/sleep 08/10/2016 09/03/2016 Inactive losartan 100 mg tablet RxNorm: 628835 1 Tablet(s) PO QD replace s lisinopril 07/20/2016 02/21/2017 Inactive Zofran 4 mg tablet RxNorm: 475349 1 Tablet(s) PO Q4H as needed for nausea 07/06/2016 10/17/2016 Inactive Flagyl 500 mg tablet RxNorm: 146897 1 Tablet(s) PO TID 07/06/2016 Inactive Plavix 75 mg tablet RxNorm: 696078 1 Tablet(s) PO QD 06/08/201607/05 Inactive isosorbide mononitrate ER 30 mg tablet,extended release 24 h r RxNorm: 865867 1 Tablet(s) PO QAM 06/08/2016 08/09/2016 Inactive atorvastatin 40 mg tablet RxNorm: 151958 1 Tablet(s) PO QD 06/08/20 16 08/09/2016 Inactive hydrochlorothiazide 12.5 mg tablet RxNorm: 735547 1 Tablet(s) PO QA M 06/08/2016 07/05/2016 Inactive metformin ER 1,000 mg tablet,extended release 24hr RxNorm: 8 79248 1 Tablet(s) PO BID 06/08/2016 09/05/2016 Inactive metoprolol tartrate 25 mg tablet RxNorm: 327088 1/2 Tablet(s) PO BI D 06/08/2016 08/09/2016 Inactive Zoloft 100 mg tablet RxNorm: 793733 2 Tablet(s) PO QHS 04/03/2016 Inactive metformin ER 1,000 mg tablet,extended release 24hr RxNorm: 8 33752 Tablet(s) 1 Tablet(s) PO QD 03/30/2016 12/18/2018 Inactive Levemir FlexTouch 100 unit/mL (3 mL) subcutaneous insulin pe n RxNorm: 445699 10 Unit(s) SQ QD 03/09/2016 03/08/2016 Inactive Levemir FlexTouch 100 unit/mL (3 mL) subcutaneous insulin pe n RxNorm: 660401 10 Unit(s) SQ QD with pen needles 03/09/2016 03/20/2016 Inactive Mobic 15 mg tablet RxNorm: 236574 1 Tablet(s) PO QD for foot pain 0 02/17/2016 03/17/2016 Inactive Zoloft 100 mg tablet RxNorm: 150763 1 1/2 Tablet(s) PO QHS 01/31/20 16 04/02/2016 Inactive omeprazole 20 mg capsule,delayed release RxNorm: 232849 TAKE 2 CAPSULES BY MOUTH EVERY DAY 01/12/2016 08/09/2016 Inactive Generic For:*CHERYL LOSEC 20 MG CAPSULE 01/12/2016 8:58:34 AM Zoloft 100 mg tablet RxNorm: 727530 1/2 Tablet(s) PO QH S for 1 week then 1 tablet po q HS 12/30/2015 01/27/2016 Inactive Ventolin HFA 90 mcg/actuation aerosol inhaler RxNorm: 308156 2 Puff(s) INH QID as needed for shortness of breath 12/30/2015 02/03/2018 Inactive [AttnRPh: Saving apply/adjudicate RxGRP:SG20 RxBIN:[id number] RxPCN: ID#:[id number]] metformin ER 1,000 mg tablet,extended release 24hr RxNorm: 8 69107 1 Tablet(s) PO QD 12/20/2015 03/18/2016 Inactive clindamycin 300 mg capsule RxNorm: 824372 1 Capsule(s) PO TID 12/0512/15/2015 Inactive mupirocin 2 % topical cream RxNorm: 198260 TOP to facial lesion s twice daily 11/15/2015 12/15/2015 Inactive cefdinir 300 mg capsule RxNorm: 258061 1 Capsule(s) PO BID 11/15/19 16 11/24/2015 Inactive Medrol (Gui) 4 mg tablets in a dose pack RxNorm: 214329 Tablet(s) PO as directed 10/11/2015 12/15/2015 Inactive albuterol sulfate 2.5 mg/3 mL (0.083 %) solution for n ebulization RxNorm: 899243 INH USE 1 VIAL IN NEBULIZER EVERY FOUR H OURS NEEDED FOR WHEEZING OR SHORTNESS OF BREATH 10/05/2015 10/04/2015 Inactive Generic For:*PRO VENTIL 0.83 MG/ML SOLUTN 06/13/2013 2:04:46 PM doxycycline hyclate 100 mg capsule RxNorm: 4677697 1 Capsule(s) PO BID 10/05/2015 10/14/2015 Inactive albuterol sulfate 2.5 mg/3 mL (0.083 %) solution for n ebulization RxNorm: 882032 Milliliter(s) INH USE 1 VIAL IN NEBULIZE R EVERY FOUR HOURS NEEDED FOR WHEEZING OR SHORTNESS OF BREATH Dx: J44.9 10/05/2015 12/05/2017 Inacti ve Generic For:*PROVENTIL 0.83 MG/ML SOLUTN 06/13/2013 2:04:46 PM albuterol sulfate 2.5 mg/3 mL (0.083 %) solution for n ebulization RxNorm: 794435 3 Milliliter(s) INH USE 1 VIAL IN NEBULI ZER EVERY FOUR HOURS NEEDED FOR WHEEZING OR SHORTNESS OF BREATH 09/06/2015 10/04/2015 Inactive Generic For:*PROVENTIL 0.83 MG/ML SOLUTN 06/13/2013 2:04:46 PM Tradjenta 5 mg tablet RxNorm: 3631214 2 Tablet(s) PO QD 07/22/2015 Inactive albuterol sulfate 2.5 mg/3 mL (0.083 %) solution for n ebulization RxNorm: 361668 3 Milliliter(s) INH USE 1 VIAL IN NEBULI ZER EVERY FOUR HOURS NEEDED FOR WHEEZING OR SHORTNESS OF BREATH 06/29/2015 09/05/2015 Inactive Generic For:*PROVENTIL 0.83 MG/ML SOLUTN 06/13/2013 2:04:46 PM albuterol sulfate 2.5 mg/3 mL (0.083 %) solution for n ebulization RxNorm: 806288 Milliliter(s) INH USE 1 VIAL IN NEBULIZE R EVERY FOUR HOURS NEEDED FOR WHEEZING OR SHORTNESS OF BREATH 06/29/2015 12/04/2017 Inactive Generic For:*PROVENTIL 0.83 MG/ML SOLUTN 06/13/2013 2:04:46 PM doxycycline hyclate 100 mg tablet RxNorm: 298991 1 Tablet(s) PO BID 06/28/2015 07/07/2015 Inactive losartan 100 mg tablet RxNorm: 548878 1 Tablet(s) PO QD -replac es lisinopril 06/14/2015 09/05/2015 Inactive metformin ER 1,000 mg tablet,extended release 24hr RxNorm: 8 20037 1 Tablet(s) PO QD 06/14/2015 09/11/2015 Inactive losartan 100 mg tablet RxNorm: 059961 1 Tablet(s) PO QD -replac es lisinopril 06/14/2015 12/10/2015 Inactive Zocor 20 mg tablet RxNorm: 213153 Tablet(s) Tablet(s) 1 Tablet(s) PO QD -needs lipids labs 06/14/2015 06/14/2015 Inactive atorvastatin 40 mg tablet RxNorm: 732037 1 Tablet(s) PO QD repl aces simvastatin 06/14/2015 12/10/2015 Inactive loratadine 10 mg tablet RxNorm: 119425 Tablet(s) 1 Tablet(s) PO QD for drainage 06/14/2015 06/07/2016 Inactive Celexa 40 mg tablet RxNorm: 458522 1 Tablet(s) PO QD TA KE ONE (1) TABLET BY MOUTH DAILY 06/14/2015 12/29/2015 Inactive Generic For:HARJINDER XA 40 MG TABLET clindamycin 300 mg capsule RxNorm: 580558 2 Capsule(s) PO BID 06/0306/12/2015 Inactive metformin ER 1,000 mg tablet,extended release 24hr RxNorm: 8 18771 1 Tablet(s) PO QD 06/03/2015 06/02/2015 Inactive metformin ER 1,000 mg tablet,extended release 24hr RxNorm: 8 23917 1 Tablet(s) PO QD 06/03/2015 06/13/2015 Inactive mupirocin 2 % topical ointment RxNorm: 170275 TOP apply to open lesion of knee twice daily 06/03/2015 01/30/2016 Inactive Zocor 20 mg tablet RxNorm: 668795 Tablet(s) 1 Tablet(s ) PO QD -needs lipids labs 05/13/2015 06/13/2015 Inactive Celexa 40 mg tablet RxNorm: 054094 1 Tablet(s) PO QD TA KE ONE (1) TABLET BY MOUTH DAILY 05/13/2015 06/13/2015 Inactive Generic For:HARJINDER XA 40 MG TABLET Zocor 20 mg tablet RxNorm: 535332 Tablet(s) 1 Tablet(s ) PO QD -needs lipids labs 02/23/2015 03/24/2015 Inactive loratadine 10 mg tablet RxNorm: 111314 1 Tablet(s) PO QD for dr saenz 12/24/2014 06/13/2015 Inactive Zocor 20 mg tablet RxNorm: 769608 1 Tablet(s) PO QD -needs lipi ds labs 11/17/2014 02/23/2015 Inactive Celexa 40 mg tablet RxNorm: 217098 1 Tablet(s) PO QD 1 Tablet(s) PO QD 1 Tablet(s) PO QD Generic OKAY 11/11/2014 05/13/2015 Inactive Zocor 20 mg tablet RxNorm: 759343 1 Tablet(s) PO QD -needs lipi ds labs 11/11/2014 11/16/2014 Inactive omeprazole 20 mg capsule,delayed release RxNorm: 340339 2 Capsule(s) PO QD TAKE 2 CAPSULES BY MOUTH DAILY 10/27/2014 04/24/2015 Inactive Generi c For:*PRILOSEC 20 MG CAPSULE trazodone 50 mg tablet RxNorm: 872621 1 1/2 Tablet(s) PO QHS 201412/29/2015 Inactive losartan 100 mg tablet RxNorm: 418276 1 Tablet(s) PO QD -replac es lisinopril 10/26/2014 04/23/2015 Inactive Levaquin 500 mg tablet RxNorm: 380159 1 Tablet(s) PO QD 10/08/2014 Inactive Levaquin 500 mg tablet RxNorm: 791418 1 Tablet(s) PO QD 10/08/2014 Inactive Diflucan 100 mg tablet RxNorm: 112757 1 Tablet(s) PO QD 10/06/2014 Inactive DuoNeb 0.5 mg-3 mg(2.5 mg base)/3 mL solution for nebulizati on RxNorm: 7221404 3 Milliliter(s) INH QID 09/23/2014 08/09/2016 Inactive Ventolin HFA 90 mcg/actuation aerosol inhaler RxNorm: 990461 2 Puff(s) INH QID as needed for shortness of breath 09/21/2014 12/29/2015 Inactive [AttnRPh: Saving apply/adjudicate RxGRP:SG20 RxBIN:[id number] RxPCN: ID#:[id number]] promethazine-codeine 6.25 mg-10 mg/5 mL syrup RxNorm: 308343 1 Teaspoon(s) PO QHS as needed for cough 09/08/2014 09/20/2014 Inactive prednisone 20 mg tablet RxNorm: 479148 1 Tablet(s) PO BID 09/02/2014 09/08/2014 Inactive promethazine-codeine 6.25 mg-10 mg/5 mL syrup RxNorm: 352412 1 Teaspoon(s) PO Q4H 09/02/2014 09/20/2014 Inactive doxycycline monohydrate 100 mg capsule RxNorm: 528669 1 Capsule (s) PO BID 09/02/2014 09/07/2014 Inactive Tessalon Perles 100 mg capsule RxNorm: 430827 1 Capsule (s) PO TID as needed for cough 08/31/2014 09/20/2014 Inactive Actos 15 mg tablet RxNorm: 680128 1 Tablet(s) PO QAM 1 Tablet(s ) PO QAM 08/26/2014 09/20/2014 Inactive loratadine 10 mg tablet RxNorm: 315188 1 Tablet(s) PO QD for dr saenz 08/26/2014 10/26/2014 Inactive Zithromax 500 mg tablet RxNorm: 606563 1 Tablet(s) PO QD 08/25/2014 1 11/01/2013 Inactive Zithromax 500 mg tablet RxNorm: 027673 1 Tablet(s) PO QD 08/25/2014 1 10/25/2013 Inactive Trazadone 75mg Tablet RxNorm: 1 Tablet(s) PO QHS 08/10/20142018 Inactive Zocor 20 mg tablet RxNorm: 675673 1 Tablet(s) PO QD 08/10/20142014 Inactive Trazadone 75mg Tablet RxNorm: 1 Tablet(s) PO QHS as need ed for sleep 08/10/2014 10/08/2014 Inactive Celexa 40 mg tablet RxNorm: 865293 1 Tablet(s) PO QD 1 Tablet(s) PO QD 1 Tablet(s) PO QD Generic OKAY 06/09/2014 10/06/2014 Inactive Actos 15 mg tablet RxNorm: 219871 1 Tablet(s) PO QAM 05/12/201408/26 Inactive lisinopril 20 mg tablet RxNorm: 761226 1 Tablet(s) PO QD 05/12/2014 0 10/26/2014 Inactive TAKE ONE TABLET BY MOUTH EVERY DAY;Gener ic For:*PRINIVIL 20 MG TABLET [AttnRPh: Saving apply/adjudicate RxGRP:SG20 RxBIN:[id number] RxPCN: ID#:[id number]] hydrocodone 5 mg-acetaminophen 325 mg tablet RxNorm: 575836 1 Tablet(s) PO TID as needed for pain for severe pain 04/30/2014 08/09/2014 Inactive hydrocodone 5 mg-acetaminophen 325 mg tablet RxNorm: 728483 1 Tablet(s) PO TID as needed for pain for severe pain 04/17/2014 04/29/2014 Inactive doxycycline hyclate 100 mg capsule RxNorm: 717369 1 Capsule(s) PO BID 03/05/2014 03/04/2014 Inactive doxycycline hyclate 100 mg capsule RxNorm: 298642 1 Capsule(s) PO BID 03/05/2014 03/14/2014 Inactive albuterol sulfate 2.5 mg/3 mL (0.083 %) solution for n ebulization RxNorm: 811931 Milliliter(s) INH USE 1 VIAL IN NEBULIZE R EVERY FOUR HOURS NEEDED FOR WHEEZING OR SHORTNESS OF BREATH 03/02/2014 06/29/2015 Inactive Generic For:*PROVENTIL 0.83 MG/ML SOLUTN 06/13/2013 2:04:46 PM Celexa 40 mg tablet RxNorm: 541529 1 Tablet(s) PO QD 1 Tablet(s) PO QD replaces lexapro. Generic OKAY 01/13/2014 06/09/2014 Inactive Actos 15 mg tablet RxNorm: 751505 1 Tablet(s) PO QAM 01/07/201405/12 Inactive lisinopril 20 mg tablet RxNorm: 324947 1 Tablet(s) PO QD 12/08/2013 0 05/12/2014 Inactive TAKE ONE TABLET BY MOUTH EVERY DAY;Gener ic For:*PRINIVIL 20 MG TABLET cefdinir 300 mg capsule RxNorm: 339518 2 Capsule(s) PO QD 11/10/2013 08/09/2014 Inactive cefdinir 300 mg capsule RxNorm: 658932 2 Capsule(s) PO QD 10/09/2013 10/15/2013 Inactive Actos 15 mg tablet RxNorm: 423126 1 Tablet(s) PO QAM 10/09/201301/06 Inactive doxycycline hyclate 100 mg capsule RxNorm: 2658750 1 Capsule(s) PO Q12H 09/18/2013 09/27/2013 Inactive omeprazole 20 mg capsule,delayed release RxNorm: 529704 2 Capsule(s) PO QD TAKE 2 CAPSULES BY MOUTH DAILY 09/03/2013 03/01/2014 Inactive Generi c For:*PRILOSEC [address] Celexa 40 mg tablet RxNorm: 847271 1 Tablet(s) PO QD re places lexapro. Generic OKAY 09/03/2013 01/13/2014 Inactive Symbicort 160 mcg-4.5 mcg/actuation HFA aerosol inhaler RxNo rm: 6825755 2 Puff(s) INH BID 08/13/2013 03/23/2014 Inactive metformin 1,000 mg tablet RxNorm: 845749 1 Tablet(s) PO BID 08/12/2013 Inactive TAKE ONE TABLET BY MOUTH TWI CE DAILY;Generic For:GLUCOPHAGE 1,000 MG TABLET 08/27/12 Thank you Actos 15 mg tablet RxNorm: 856205 1 Tablet(s) PO QAM 06/23/201310/09 Inactive lisinopril 20 mg tablet RxNorm: 920085 1 Tablet(s) PO QD 06/23/2013 0 12/08/2013 Inactive TAKE ONE TABLET BY MOUTH EVERY DAY;Gener ic For:*PRINIVIL 20 MG TABLET albuterol sulfate 2.5 mg/3 mL (0.083 %) solution for n ebulization RxNorm: 263150 Solution for Nebulization INH USE 1 VIAL IN NEBULIZER EVERY FOUR HOURS NEEDED FOR WHEEZING OR SHORTNESS OF BREATH 06/16/2013 03/01/2014 Inactive Generic For:*PROVENTIL 0.83 MG/ML SOLUTN 06/13/2013 2:04:46 PM prednisone 10 mg tablet RxNorm: 480145 1 Tablet(s) PO BID 04/09/2013 04/13/2013 Inactive AndroGel 1.25 gram/actuation (1%) Transdermal Gel Pump RxNorm: 2 54339 TD 04/09/2013 08/09/2014 Inactive APPLY 4 PUMPS OF GEL AT BEDTIME DIRECTED; (Appended: Controlled substance eRx refill - RxReferenceNumber: [id number]) azithromycin 250 mg tablet RxNorm: 910559 2 Tablet(s) PO QD 013 04/16/2013 Inactive Amaryl 2 mg tablet RxNorm: 222176 1 Tablet(s) PO BID N eeds appt in 1 month (around March 21) 02/18/2013 08/12/2013 Inactive Amaryl 2 mg tablet RxNorm: 456999 1 Tablet(s) PO BID 02/18/201302/17 Inactive metformin 1,000 mg tablet RxNorm: 182269 1 Tablet(s) PO BID 013 07/27/2013 Inactive TAKE ONE TABLET BY MOUTH TWI CE DAILY;Generic For:GLUCOPHAGE 1,000 MG TABLET 08/27/12 Thank you Actos 15 mg tablet RxNorm: 794111 1 Tablet(s) PO QAM 02/04/201306/03 Inactive albuterol sulfate 2.5 mg/3 mL (0.083 %) Neb Solution RxNorm: 819410 1 Unit Dose INH Q4H prn wheezing or shortness of breath 01/30/2013 06/15/2013 Inac tive Medrol (Gui) 4 mg tablets in a dose pack RxNorm: 779555 Tablet(s) PO as directed 01/20/2013 07/15/2013 Inactive cefdinir 300 mg capsule RxNorm: 979341 1 Capsule(s) PO BID anti biotic 01/20/2013 01/29/2013 Inactive lisinopril 20 mg tablet RxNorm: 898683 Tablet(s) PO 01/13/20132012 Inactive TAKE ONE TABLET BY MOUTH EVERY DAY;Gener ic For:*PRINIVIL 20 MG TABLET citalopram 40 mg tablet RxNorm: 149179 Tablet(s) PO 01/13/20132013 Inactive TAKE ONE (1) TABLET BY MOUTH DAILY;Gener ic For:CELEXA 40 MG TABLET omeprazole 20 mg capsule,delayed release RxNorm: 283912 Capsule(s) PO TAKE 2 CAPSULES BY MOUTH DAILY 11/15/2012 09/03/2013 Inactive Generic For:*PRILOSEC [address] amoxicillin 875 mg tablet RxNorm: 030362 1 Tablet(s) PO BID 013 10/28/2012 Inactive Actos 30 mg tablet RxNorm: 260875 1 Tablet(s) PO QD 09/23/20122011 Inactive Actos 15 mg tablet RxNorm: 986448 1 Tablet(s) PO QAM 09/23/201209/22 Inactive Actos 15 mg tablet RxNorm: 490749 1 Tablet(s) PO QAM 09/23/201202/04 Inactive prednisone 20 mg tablet RxNorm: 567200 1 Tablet(s) PO BID 08/28/2012 09/03/2012 Inactive doxycycline hyclate 100 mg tablet RxNorm: 1381675 1 Tablet(s) PO BI D 08/28/2012 09/06/2012 Inactive metformin 1,000 mg tablet RxNorm: 008533 Tablet(s) PO 08/27/201201/22 Inactive TAKE ONE TABLET BY MOUTH TWICE DAILY;Gen joshua For:GLUCOPHAGE 1,000 MG TABLET 08/27/12 Thank you citalopram 40 mg tablet RxNorm: 939997 Tablet(s) PO 07/30/20122012 Inactive TAKE ONE (1) TABLET BY MOUTH DAILY;Gener ic For:CELEXA 40 MG TABLET lisinopril 20 mg tablet RxNorm: 940149 Tablet(s) PO 07/30/20122012 Inactive TAKE ONE TABLET BY MOUTH EVERY DAY;Gener ic For:*PRINIVIL 20 MG TABLET AndroGel 1.25 gram/actuation (1%) Transdermal Gel Pump RxNor m: [id number] Gel in Metered-Dose Pump TD 07/09/2012 04/08/2013 Inactive APPLY 4 PUM PS OF GEL AT BEDTIME DIRECTED;WC (Appended: Controlled substance eRx refill - RxReferenceNumber: [id number]) citalopram 40 mg tablet RxNorm: 636214 Tablet(s) PO 07/01/20122011 Inactive TAKE ONE (1) TABLET BY MOUTH DAILY;Gener ic For:CELEXA 40 MG TABLET metformin 1,000 mg tablet RxNorm: 984569 1 Tablet(s) PO BID 012 08/25/2012 Inactive TAKE 1 TABLET BY MOUTH TWICE DAILY;Generic For:GLUCOPHAGE 1,000 MG TABLET meclizine 25 mg Tab RxNorm: 760932 1 Tablet(s) PO QID prn dizziness 05/09/2012 05/18/2012 Inactive lisinopril 20 mg tablet RxNorm: 299907 Tablet(s) PO QD 04/22/2012 Inactive TAKE ONE (1) TABLET BY MOUTH DAILY;Gener ic For:*PRINIVIL 20 MG TABLET metformin 1,000 mg tablet RxNorm: 377519 Tablet(s) PO 03/19/201212/2011 Inactive TAKE 1 TABLET BY MOUTH TWICE DAILY;Gener ic For:GLUCOPHAGE 1,000 MG TABLET cefdinir 300 mg Cap RxNorm: 736757 1 Capsule(s) PO BID 11/28/2011 Inactive cefdinir 300 mg Cap RxNorm: 335421 1 Capsule(s) PO BID 11/01/2011 Inactive citalopram 40 mg tablet RxNorm: 307002 Tablet(s) PO 10/30/20112011 Inactive TAKE ONE (1) TABLET BY MOUTH DAILY;Gener ic For:CELEXA 40 MG TABLET cefdinir 300 mg Cap RxNorm: 903520 1 Capsule(s) PO BID 10/02/2011 Inactive metformin 1,000 mg Tab RxNorm: 912189 1 Tablet(s) PO BID 09/28/2011 0 01/25/2012 Inactive citalopram 40 mg Tab RxNorm: 945526 1 Tablet(s) PO QD 09/28/201111/2011 Inactive omeprazole 20 mg capsule,delayed release RxNorm: 061464 2 Capsu le(s) PO QD 09/28/2011 03/25/2012 Inactive lisinopril 20 mg Tab RxNorm: 162800 Tablet(s) PO 08/21/2011 04/21/2012 Inactive TAKE ONE (1) TABLET BY MOUTH DAILY;Generic For:*PRINIVIL 20 MG TABLET AndroGel 1.25 gram/actuation (1%) Transdermal Gel Pump RxNor m: [id number] Gel in Metered-dose Pump TD 08/21/2011 07/09/2012 Inactive APPLY 4 PUM PS OF GEL AT BEDTIME DIRECTED (Appended: Controlled substance eRx refill - RxReferenceNumber: [id number]) Lantus Solostar 100 unit/mL (3 mL) Sub-Q Insulin Pen RxNorm: 365257 30 Unit(s) SQ QD 06/20/2011 05/08/2012 Inactive Lantus Solostar 100 unit/mL (3 mL) Sub-Q Insulin Pen RxNorm: 940623 30 Unit(s) SQ QD 06/19/2011 06/19/2011 Inactive metformin 1,000 mg Tab RxNorm: 867292 1 Tablet(s) PO BID 05/12/2011 1 11/09/2010 Inactive citalopram 40 mg Tab RxNorm: 795896 1 Tablet(s) PO QD 03/06/2011 120 05/2011 Inactive metformin 1,000 mg Tab RxNorm: 907874 1 Tablet(s) PO BID 12/27/2010 0 04/25/2011 Inactive lisinopril 20 mg Tab RxNorm: 070387 Tablet(s) PO TAKE 1 TABLET BY MOUTH EVERY DAY;Generic For:*PRINIVIL 20 MG TABLET 12/26/2010 08/20/2011 Inactive Ceftin 500 mg Tab RxNorm: 766533 1 Tablet(s) PO BID 12/19/20102010 Inactive omeprazole 20 mg Cap, Delayed Release RxNorm: 675118 2 Capsule( s) PO QD 09/13/2010 03/11/2011 Inactive Byetta 10 mcg/0.04 mL per dose Sub-Q Pen Injector RxNorm: 84 7913 1 Unit Dose SQ BID 09/07/2010 10/06/2010 Inactive Celexa 40 mg tablet RxNorm: 914623 1 Tablet(s) PO QD re places lexapro. Generic OKAY 08/09/2010 02/04/2011 Inactive Actos 30 mg Tab RxNorm: 525801 1 Tablet(s) PO QD 08/09/2010 04/02/2011 Inactive lisinopril 20 mg Tab RxNorm: 273569 1 Tablet(s) PO QD 08/09/201011/22 Inactive metformin 1,000 mg Tab RxNorm: 109034 1 Tablet(s) PO BID 08/09/2010 0 12/06/2010 Inactive Metformin 1,000 mg Tab RxNorm: 815462 1 Tablet(s) PO BID 04/26/2010 0 04/25/2010 Inactive metformin 1,000 mg Tab RxNorm: 372637 1 Tablet(s) PO BID 04/26/2010 1 Inactive Lomotil 2.5 mg-0.025 mg Tab RxNorm: 2536493 1 Tablet(s) PO TID 1-2 TABS THREE TIMES DAILY 04/05/2010 04/07/2010 Inactive Mupirocin 2 % Topical Cream RxNorm: 300494 TOP BID 04/05/201003/25 Inactive lisinopril 20 mg Tab RxNorm: 528713 1 Tablet(s) PO QD 03/29/201010/2009 Inactive Actos 30 mg Tab RxNorm: 236122 1 Tablet(s) PO QD 03/29/2010 07/26/2010 Inactive Lisinopril 20 mg Tab RxNorm: 747624 1 Tablet(s) PO QD 02/27/2010 07/01/2010 Inactive Actos 30 mg Tab RxNorm: 084180 1 Tablet(s) PO QD 02/14/2010 03/28/2010 Inactive Celexa 40 mg Tab RxNorm: 515860 1 Tablet(s) PO QD replaces lexapro 01/13/2010 07/11/2010 Inactive Cyclobenzaprine 10 mg Tab RxNorm: 731355 1 Tablet(s) PO TID prn spasm 12/23/2009 01/21/2010 Inactive Cyclobenzaprine 10 mg Tab RxNorm: 853392 1 Tablet(s) PO TID 010 12/22/2009 Inactive Hydrocodone-Acetaminophen 7.5 mg-750 mg Tab RxNorm: 885089 1 Ta blet(s) PO Q4-6H 12/23/2009 12/22/2009 Inactive Levemir FlexTouch U-100 Insulin 100 unit/mL (3 mL) sub cutaneous pen RxNorm: 816005 22 Unit(s) SQ QD No Start Date Active aspirin 81 mg tablet RxNorm: 974896 1 Tablet(s) PO QD No Start Date Active isosorbide mononitrate ER 60 mg tablet,extended release 24 h r RxNorm: 369810 1 Tablet(s) PO QD No Start Date Active amlodipine 5 mg tablet RxNorm: 558182 1 Tablet(s) PO QD No Start Date Active Vitamin D3 1,000 unit tablet RxNorm: 572835 3 Tablet(s) PO QD No St art Date 10/26/2014 Inactive Lexapro 20 mg Tab RxNorm: 290021 1 Tablet(s) PO QD No Start Date 12/24 Inactive loperamide 2 mg tablet RxNorm: 409586 Tablet(s) PO PRN No Start Date 06/07/2016 Inactive Janumet 50 mg-1,000 mg Tab RxNorm: 972392 1 Tablet(s) PO BID No Sta rt Date 01/12/2010 Inactive Levemir U-100 Insulin 100 unit/mL subcutaneous solution RxNo rm: 107736 10 Unit(s) SQ QHS No Start Date 12/08/2018 Inactive Medrol (Gui) 4 mg tablets in a dose pack RxNorm: 185983 Tablet(s) PO Use as directed No Start Date 12/22/2018 Inactive aspirin 325 mg tablet RxNorm: 605695 1 Tablet(s) PO QD No Start Date 08/09/2016 Inactive Efudex 5 % Topical Cream RxNorm: 594955 Application TOP QD prn fto skin lesion No Start Date 08/12/2013 Inactive nitroglycerin 0.4 mg sublingual tablet RxNorm: 963167 Tablet(s) SL as needed No Start Date 12/18/2018 Inactive levofloxacin 500 mg tablet RxNorm: 486953 1 Tablet(s) PO QD No Star t Date 08/06/2018 Inactive ferrous sulfate 325 mg (65 mg iron) tablet RxNorm: 123667 1 Tab let(s) PO QHS No Start Date 04/16/2017 Inactive fluorouracil 5 % topical cream RxNorm: 384508 1 TOP No Start James e 08/06/2018 Inactive Vitamin D3 1,000 unit capsule RxNorm: 355954 1 Capsule(s) PO QD No Start Date 02/03/2018 Inactive Hydrocodone-Acetaminophen 7.5 mg-750 mg Tab RxNorm: 442976 1 Ta blet(s) PO PRN No Start Date 08/09/2014 Inactive pantoprazole 40 mg tablet,delayed release RxNorm: 791181 1 Tabl et(s) PO QD No Start Date 01/22/2018 Inactive omeprazole 20 mg Cap, Delayed Release RxNorm: 013458 2 Capsule( s) PO QD No Start Date 09/12/2010 Inactive DuoNeb 0.5 mg-3 mg(2.5 mg base)/3 mL solution for nebulizati on RxNorm: 3561370 INH Q4H as needed No Start Date 10/22/2018 Inactive Lyrica 75 mg capsule RxNorm: 055002 2 Capsule(s) PO QHS No Start Da te 03/09/2019 Inactive isosorbide mononitrate ER 30 mg tablet,extended release 24 h r RxNorm: 944863 1 Tablet(s) PO QD No Start Date 12/08/2018 Inactive Tradjenta 5 mg tablet RxNorm: 5202766 1 Tablet(s) PO QD No Start Da te 08/09/2016 Inactive Tudorza Pressair 400 mcg/actuation breath activated RxNorm: 8735958 1 Puff(s) INH BID No Start Date 06/17/2017 Inactive Lantus Solostar 100 unit/mL (3 mL) Sub-Q Insulin Pen RxNorm: 173200 30 Unit(s) SQ QD No Start Date 06/18/2011 Inactive Requip 4 mg tablet RxNorm: 685947 1 Tablet(s) PO BID No Start Date Inactive Symbicort 160 mcg-4.5 mcg/actuation HFA aerosol inhaler RxNo rm: 4216331 2 Puff(s) INH BID No Start Date 07/11/2018 Inactive atorvastatin 40 mg tablet RxNorm: 286979 1 Tablet(s) PO QD No Start Date 12/18/2018 Inactive tramadol 50 mg tablet RxNorm: 437793 1 Tablet(s) PO TID as needed for pain (take alone with two extra strength tylenol) No Start Date 01/16/2019 Inactive Symbicort 160 mcg-4.5 mcg/actuation HFA aerosol inhaler RxNo rm: 3706686 2 Puff(s) INH BID No Start Date 08/12/2013 Inactive Vitamin D3 5,000 unit tablet RxNorm: 871132 1 Tablet(s) PO QD No St art Date 05/08/2019 Inactive albuterol sulfate 2.5 mg/3 mL (0.083 %) Neb Solution RxNorm: 598424 1 Unit Dose INH Q4H prn wheezing or shortness of breath No Start Date 01/29/2013 Inac tive Ranexa 500 mg tablet,extended release RxNorm: 342648 1 Tablet(s ) PO BID No Start Date 02/03/2018 Inactive Advair Diskus 500 mcg-50 mcg/dose powder for inhalation RxNo rm: 1999382 1 Puff(s) INH BID No Start Date 08/09/2016 Inactive clopidogrel 75 mg tablet RxNorm: 905187 1 Tablet(s) PO QD No Start Date 05/01/2018 Inactive metformin 1,000 mg Tab RxNorm: 942262 1 Tablet(s) PO BID No Start D ate 08/12/2013 Inactive Silenor 3 mg tablet RxNorm: 647212 1 Tablet(s) PO QHS No Start Date 0 04/04/2017 Inactive Medrol (Gui) 4 mg tablets in a dose pack RxNorm: 579404 Tablet(s) PO as directed No Start Date 01/19/2013 Inactive Requip 4 mg tablet RxNorm: 243472 1 Tablet(s) PO BID No Start Date Inactive clopidogrel 75 mg tablet RxNorm: 214020 1 Tablet(s) PO QD No Start Date 02/03/2018 Inactive Tradjenta 5 mg tablet RxNorm: 1382446 1 Tablet(s) PO QD No Start Da te 02/03/2018 Inactive ProAir HFA 90 mcg/Actuation Aerosol Inhaler RxNorm: 742063 2 Pu ff(s) INH PRN No Start Date 07/09/2012 Inactive Tessalon Perles 100 mg capsule RxNorm: 686352 1 Capsule (s) PO TID as needed for cough No Start Date 08/30/2014 Inactive ferrous sulfate 325 mg (65 mg iron) tablet RxNorm: 794239 1 Tab let(s) PO QD No Start Date 05/08/2019 Inactive pioglitazone 15 mg tablet RxNorm: 708006 1 Tablet(s) PO QD No Start Date 09/20/2014 Inactive Lexapro Oral RxNorm: Oral No Start Date 12/13/2009 Inactive Breo Ellipta 100 mcg-25 mcg/dose powder for inhalation RxNor m: 2614670 1 Puff(s) INH BID No Start Date 05/31/2015 Inactive Tylenol Extra Strength 500 mg tablet RxNorm: 238223 2 T ablet(s) PO QHS along with ropironole No Start Date 12/18/2018 Inactive tramadol 50 mg tablet RxNorm: 602380 1 Tablet(s) PO QID as need ed for pain No Start Date 12/24/2018 Inactive cyclobenzaprine 10 mg Tab RxNorm: 858548 Oral No Start Date 12/22 Inactive Levemir FlexTouch 100 unit/mL (3 mL) subcutaneous insulin pe n RxNorm: 410168 10 Unit(s) SQ QD No Start Date 03/08/2016 Inactive amlodipine 5 mg tablet RxNorm: 130842 1 Tablet(s) PO QD No Start Da te 08/09/2016 Inactive Novolog 100 unit/mL subcutaneous solution RxNorm: 150704 10 Uni t(s) SQ AC No Start Date 08/12/2017 Inactive Levemir FlexTouch 100 unit/mL (3 mL) subcutaneous insulin pe n RxNorm: 553528 25 Unit(s) SQ QPM No Start Date 08/06/2018 Inactive Farxiga 5 mg tablet RxNorm: 6733123 1 Tablet(s) PO QD No Start Date 0 10/05/2014 Inactive DuoNeb 0.5 mg-3 mg(2.5 mg base)/3 mL solution for nebulizati on RxNorm: 2361236 inhalation No Start Date 09/23/2014 Inactive Doxycycline 100 mg Cap RxNorm: 057411 1 Capsule(s) PO BID No Start Date 12/18/2010 Inactive Vitamin B12 1000mcg Tablet RxNorm: 1 Tablet(s) PO QD No Start Date 02/03/2018 Inactive Hydrocodone-Acetaminophen 7.5 mg-750 mg Tab RxNorm: 826908 1 Ta blet(s) PO Q6-8H No Start Date 12/22/2009 Inactive Xigduo XR 5 mg-1,000 mg tablet,extended release RxNorm: 1593 833 1 Tablet(s) PO QD No Start Date 05/31/2015 Inactive cyanocobalamin (vit B-12) 1,000 mcg/mL injection solution Rx Norm: 632177 1 injection weekly for 4 weeks 1 Milliliter(s) Inj No Start Date 05/08/2019 Inactive AndroGel 1.25 g/Actuation (1%) Transdermal Gel Pump RxNorm: 2191751 TD Apply 4pumps daily No Start Date 08/21/2011 Inactive Actoplus MET 15 mg-850 mg Tab RxNorm: 106163 1 Tablet(s) PO BID No Start Date 12/18/2010 Inactive Amaryl 2 mg tablet RxNorm: 612122 1 Tablet(s) PO BID No Start Date Inactive Levemir FlexTouch 100 unit/mL (3 mL) subcutaneous insulin pe n RxNorm: 639781 20 Unit(s) SQ QD No Start Date 06/12/2016 Inactive Symbicort 160 mcg-4.5 mcg/actuation HFA aerosol inhaler RxNo rm: 1019131 2 Puff(s) INH BID No Start Date 02/03/2018 Inactive Symbicort 160 mcg-4.5 mcg/Actuation Inhalation HFA Aer osol Inhaler RxNorm: 8714015 2 INH BID No Start Date 12/18/2010 Inactive Farxiga 5 mg tablet RxNorm: 0652609 1 Tablet(s) PO QD No Start Date 0 03/01/2015 Inactive magnesium oxide 400 mg (241.3 mg magnesium) tablet RxNorm: 1 07337 1 Tablet(s) PO QHS No Start Date 05/08/2019 Inactive Tradjenta 5 mg tablet RxNorm: 9926212 2 Tablet(s) PO QD No Start Da te 07/21/2015 Inactive Levemir FlexTouch U-100 Insulin 100 unit/mL (3 mL) sub cutaneous pen RxNorm: 833252 40 Unit(s) SQ QD No Start Date 08/06/2018 Inactive Sinemet CR 50 mg-200 mg tablet,extended release RxNorm: 8343 41 1 Tablet(s) PO QHS No Start Date 09/24/2017 Inactive metoprolol tartrate 25 mg tablet RxNorm: 475215 1/2 Tablet(s) P O BID No Start Date 02/03/2018 Inactive Requip 4 mg tablet RxNorm: 370133 1 Tablet(s) PO QHS No Start Date Inactive Ventolin HFA 90 mcg/actuation aerosol inhaler RxNorm: 090323 2 Puff(s) INH Q4H as needed No Start Date 04/22/2018 Inactive B12 5,000 mcg-100 mcg sublingual lozenge RxNorm: 944475 IM as d irected No Start Date 05/08/2019 Inactive ropinirole 1 mg tablet RxNorm: 586215 1 Tablet(s) PO QHS No Start D ate 08/06/2018 Inactive Percocet 5 mg-325 mg tablet RxNorm: 0845565 1 Tablet(s) PO Q4H as needed for pain (Dr Rizzo) No Start Date 10/22/2018 Inactive hydrocodone 5 mg-acetaminophen 325 mg tablet RxNorm: 792260 1 Tablet(s) PO TID as needed for pain for severe pain No Start Date 04/16/2014 Inactive scopolamine 1.5 mg 72 hr Transderm Patch RxNorm: 349047 Application TD Q72H for dizziness No Start Date 08/12/2013 Inactive ipratropium-albuterol 0.5 mg-3 mg(2.5 mg base)/3 mL ne bulization soln RxNorm: 9132951 1 Unit Dose INH Q4H No Start Date 01/16/2019 Inactive Medication Administered No Medication Administered data Immunizations Vaccine Codes Date Status Influenza CVX: 135 08/07/2019 Complete Pneumococcal CVX: 33 07/24/2017 Complete Influenza CVX: 135 06/13/2016 Complete Pneumococcal CVX: 133 06/13/2016 Complete Influenza CVX: 141 07/10/2012 Pneumovax Unknown 07/10/2012 Results Observation Observation Code Item Item Code Result Date S ervice Location COMPLETE BLOOD COUNT [id number] WBC 5.5 10e9/L 06/17/20 19 Unknown COMPLETE BLOOD COUNT [id number] RBC 3.92 10e12/L 2018 Unknown COMPLETE BLOOD COUNT 7960351 HEMOGLOBIN 10.9 g/dL 06/17/20 19 Unknown COMPLETE BLOOD COUNT 0581800 HEMATOCRIT 34.8 % 06/17/20 19 Unknown COMPLETE BLOOD COUNT 0188656 MCV 88.8 fL 9 Unknown COMPLETE BLOOD COUNT 1257735 MCH 27.8 pg 9 Unknown COMPLETE BLOOD COUNT 9543967 MCHC 31.3 g/dL 9 Unknown COMPLETE BLOOD COUNT 9165569 PLATELET COUNT 239 10e9/L Unknown COMPLETE BLOOD COUNT 6592430 Mean Plt Volume 10.0 fL Unknown COMPLETE BLOOD COUNT 5816227 Neut Auto 68.0 % 9 Unknown COMPLETE BLOOD COUNT 4889236 Lymph Auto 14.8 % 06/17/20 19 Unknown COMPLETE BLOOD COUNT 8693249 Braxton Auto 13.1 % 9 Unknown COMPLETE BLOOD COUNT 4155587 RDW 14.7 % 9 Unknown COMPLETE BLOOD COUNT 5052930 Eos Auto 3.6 % 9 Unknown COMPLETE BLOOD COUNT 6000253 Baso Auto 0.5 % 9 Unknown COMPLETE BLOOD COUNT 4382355 Neutrophil Abs 3.74 10e9/L Unknown COMPLETE BLOOD COUNT 8238160 Lymphocyte Abs 0.81 10e9/L Unknown COMPLETE BLOOD COUNT 2760611 Monocyte Abs 0.72 10e9/L 05/26 Unknown COMPLETE BLOOD COUNT 4547496 Eosinophil Abs 0.20 10e9/L Unknown COMPLETE BLOOD COUNT 4018336 RDW-SD 46.4 fL 9 Unknown COMPLETE BLOOD COUNT 1823824 Basophil Abs 0.03 10e9/L 05/26 Unknown IRON 13884 Iron 36 ug/dL 06/17/2019 Unknown VITAMIN B 12 18607 VITAMIN B12 540 pg/mL 06/17/2019 Unkn own GFR CALC 7621283 GFR Non Afr Amr 59 mL/min 06/17/2019 Unk nown GFR CALC 9360626 GFR Afr Amr >60 mL/min 06/17/2019 Unknow n ERYTHROCYTE SEDIMENTATION RATE 15942 Sed Rate 34 mm/hr 06/17/2019 Unknown THYROID STIMULATING HORMONE 69699 TSH 2.217 uIU/mL 06/17/2019 Unknown COMPREHENSIVE METABOLIC 22454 AST 12 U/L 2018 Unknown COMPREHENSIVE METABOLIC 47190 ALT 11 U/L 2018 Unknown COMPREHENSIVE METABOLIC 03496 BUN 17 mg/dL 2018 Unknown COMPREHENSIVE METABOLIC 16110 ALBUMIN 3.9 g/dL 2018 Unknown COMPREHENSIVE METABOLIC 74095 CHLORIDE 103 mmol/L 06/17 Unknown COMPREHENSIVE METABOLIC 50383 Bili Total 0.4 mg/dL 06/17 Unknown COMPREHENSIVE METABOLIC 35102 ALK PHOS 51 U/L 2018 Unknown COMPREHENSIVE METABOLIC 93488 SODIUM 140 mmol/L 06/17 Unknown COMPREHENSIVE METABOLIC 13418 CREATININE 1.20 mg/dL 05/26 Unknown COMPREHENSIVE METABOLIC 01250 CALCIUM 8.9 mg/dL 2018 Unknown COMPREHENSIVE METABOLIC 42477 POTASSIUM 4.5 mmol/L 06/17 Unknown COMPREHENSIVE METABOLIC 39871 Total Protein 6.1 g/dL Unknown COMPREHENSIVE METABOLIC 97069 Glucose 108 mg/dL 2018 Unknown COMPREHENSIVE METABOLIC 48617 Bicarbonate 27 mmol/L 05/26 Unknown COMPREHENSIVE METABOLIC 84743 AGAP 10 mmol/L 2018 Unknown FERRITIN 82704 FERRITIN 35.5 ng/mL 05/08/2019 Unknown VITAMIN D TOTAL (25 HYDROXY) 56585 Vitamin D 25 OH 26.0 ng/mL 05/08/2019 Unknown GLYCOSYLATED HEMOGLOBIN TEST 82478 Hgb A1c 11303-8 8.2 % 0 05/08/2019 Unknown MEAN GLUC 9184710 Calc Mean Gluc 189 mg/dL 05/08/2019 Unkn own GFR CALC 1768451 GFR Non Afr Amr >60 mL/min 05/08/2019 Un known GFR CALC 5926964 GFR Afr Amr >60 mL/min 05/08/2019 Unknow n VITAMIN B 12 20029 VITAMIN B12 197 pg/mL 05/08/2019 Unkn own IRON 12259 Iron 34 ug/dL 05/08/2019 Unknown COMPLETE BLOOD COUNT 5320292 WBC 6.9 10e9/L 05/08/20 19 Unknown COMPLETE BLOOD COUNT 2866126 RBC 3.95 10e12/L 2018 Unknown COMPLETE BLOOD COUNT 3890366 HEMOGLOBIN 11.1 g/dL 05/08/20 19 Unknown COMPLETE BLOOD COUNT 5129229 HEMATOCRIT 34.9 % 05/08/20 19 Unknown COMPLETE BLOOD COUNT 8241692 MCV 88.4 fL 9 Unknown COMPLETE BLOOD COUNT 1474421 MCH 28.1 pg 9 Unknown COMPLETE BLOOD COUNT 2000797 MCHC 31.8 g/dL 9 Unknown COMPLETE BLOOD COUNT 3099664 PLATELET COUNT 217 10e9/L Unknown COMPLETE BLOOD COUNT 8193880 Mean Plt Volume 9.6 fL Unknown COMPLETE BLOOD COUNT 0936504 Neut Auto 77.6 % 9 Unknown COMPLETE BLOOD COUNT 4790140 Lymph Auto 10.7 % 05/08/20 19 Unknown COMPLETE BLOOD COUNT 4502585 Braxton Auto 10.4 % 9 Unknown COMPLETE BLOOD COUNT 2162889 RDW 14.7 % 9 Unknown COMPLETE BLOOD COUNT 4380453 Eos Auto 1.2 % 9 Unknown COMPLETE BLOOD COUNT 9243221 Baso Auto 0.1 % 9 Unknown COMPLETE BLOOD COUNT 7921727 Neutrophil Abs 5.35 10e9/L Unknown COMPLETE BLOOD COUNT 6571250 Lymphocyte Abs 0.74 10e9/L Unknown COMPLETE BLOOD COUNT 1375722 Monocyte Abs 0.72 10e9/L 04/24 Unknown COMPLETE BLOOD COUNT 2932807 Eosinophil Abs 0.08 10e9/L Unknown COMPLETE BLOOD COUNT 3589673 Basophil Abs 0.01 10e9/L 04/24 Unknown COMPLETE BLOOD COUNT 6596842 RDW-SD 46.6 fL 9 Unknown COMPREHENSIVE METABOLIC 10586 AST 13 U/L 2018 Unknown COMPREHENSIVE METABOLIC 51605 ALT 9 U/L 2018 Unknown COMPREHENSIVE METABOLIC 61236 BUN 18 mg/dL 2018 Unknown COMPREHENSIVE METABOLIC 30163 ALBUMIN 4.3 g/dL 2018 Unknown COMPREHENSIVE METABOLIC 58011 CHLORIDE 99 mmol/L 2018 Unknown COMPREHENSIVE METABOLIC 73506 Bili Total 0.4 mg/dL 05/08 Unknown COMPREHENSIVE METABOLIC 74305 ALK PHOS 48 U/L 2018 Unknown COMPREHENSIVE METABOLIC 64748 SODIUM 137 mmol/L 05/08 Unknown COMPREHENSIVE METABOLIC 63673 CREATININE 0.79 mg/dL 04/24 Unknown COMPREHENSIVE METABOLIC 10462 CALCIUM 9.5 mg/dL 2018 Unknown COMPREHENSIVE METABOLIC 70631 POTASSIUM 4.0 mmol/L 05/08 Unknown COMPREHENSIVE METABOLIC 81709 Total Protein 6.3 g/dL Unknown COMPREHENSIVE METABOLIC 72400 Glucose 232 mg/dL 2018 Unknown COMPREHENSIVE METABOLIC 21135 Bicarbonate 27 mmol/L 04/24 Unknown COMPREHENSIVE METABOLIC 32558 AGAP 11 mmol/L 2018 Unknown GLYCOSYLATED HEMOGLOBIN TEST 44807 Hgb A1c 58341-0 8.9 % 0 12/10/2018 Unknown MEAN GLUC 6196246 Calc Mean Gluc 209 mg/dL 12/10/2018 Unkn own LIPID GROUP 31468 Cholesterol 145 mg/dL 12/09/2018 Unkno wn LIPID GROUP 44118 Triglyceride 235 mg/dL 12/09/2018 Unkn own LIPID GROUP 52503 HDL CHOLESTEROL 40 mg/dL 12/09/2018 U nknown LIPID GROUP 34351 Chol/HDL Ratio 3.62 ratio 12/09/2018 U nknown LIPID GROUP 43316 NON-HDL Chol 105 mg/dL 12/09/2018 Unkn own LIPID GROUP 13231 LDL Cholesterol 58 mg/dL 12/09/2018 U nknown THYROID STIMULATING HORMONE 90212 TSH 1.071 uIU/mL 12/09/2018 Unknown GFR CALC 8645730 GFR Afr Amr >60 mL/min 12/09/2018 Unknow n GFR CALC 4753383 GFR Non Afr Amr >60 mL/min 12/09/2018 Un known COMPLETE BLOOD COUNT 5384088 WBC 7.6 10e9/L 12/10/19 19 Unknown COMPLETE BLOOD COUNT 7585253 RBC 3.97 10e12/L 2018 Unknown COMPLETE BLOOD COUNT 8395987 HEMOGLOBIN 11.4 g/dL 12/10/19 19 Unknown COMPLETE BLOOD COUNT 2114967 HEMATOCRIT 35.8 % 12/10/19 19 Unknown COMPLETE BLOOD COUNT 7058415 MCV 90.2 fL 9 Unknown COMPLETE BLOOD COUNT 7373444 MCH 28.7 pg 9 Unknown COMPLETE BLOOD COUNT 4347102 MCHC 31.8 g/dL 9 Unknown COMPLETE BLOOD COUNT 9701927 PLATELET COUNT 200 10e9/L Unknown COMPLETE BLOOD COUNT 4014306 Mean Plt Volume 10.1 fL Unknown COMPLETE BLOOD COUNT 8142214 Neut Auto 79.0 % 9 Unknown COMPLETE BLOOD COUNT 7992199 Lymph Auto 8.3 % 12/10/19 19 Unknown COMPLETE BLOOD COUNT 6383720 Braxton Auto 10.8 % 9 Unknown COMPLETE BLOOD COUNT 7254991 RDW 14.6 % 9 Unknown COMPLETE BLOOD COUNT 8520065 Eos Auto 1.5 % 9 Unknown COMPLETE BLOOD COUNT 5380434 Baso Auto 0.4 % 9 Unknown COMPLETE BLOOD COUNT 8976836 Neutrophil Abs 6.00 10e9/L Unknown COMPLETE BLOOD COUNT 2660149 Lymphocyte Abs 0.63 10e9/L Unknown COMPLETE BLOOD COUNT 7119036 Monocyte Abs 0.82 10e9/L 11/22 Unknown COMPLETE BLOOD COUNT 1369901 Eosinophil Abs 0.11 10e9/L Unknown COMPLETE BLOOD COUNT 7078456 RDW-SD 46.9 fL 9 Unknown COMPLETE BLOOD COUNT 5667085 Basophil Abs 0.03 10e9/L 11/22 Unknown COMPREHENSIVE METABOLIC 76821 AST 11 U/L 2018 Unknown COMPREHENSIVE METABOLIC 36956 ALT 11 U/L 2018 Unknown COMPREHENSIVE METABOLIC 86812 BUN 21 mg/dL 2018 Unknown COMPREHENSIVE METABOLIC 82708 ALBUMIN 4.7 g/dL 2018 Unknown COMPREHENSIVE METABOLIC 90791 CHLORIDE 99 mmol/L 2018 Unknown COMPREHENSIVE METABOLIC 26503 Bili Total 0.4 mg/dL 12/09 Unknown COMPREHENSIVE METABOLIC 51284 ALK PHOS 73 U/L 2018 Unknown COMPREHENSIVE METABOLIC 08370 SODIUM 137 mmol/L 12/09 Unknown COMPREHENSIVE METABOLIC 34138 CREATININE 1.12 mg/dL 11/22 Unknown COMPREHENSIVE METABOLIC 07303 CALCIUM 9.4 mg/dL 2018 Unknown COMPREHENSIVE METABOLIC 43071 POTASSIUM 4.2 mmol/L 12/09 Unknown COMPREHENSIVE METABOLIC 92942 Total Protein 6.8 g/dL Unknown COMPREHENSIVE METABOLIC 33811 Glucose 194 mg/dL 2018 Unknown COMPREHENSIVE METABOLIC 05369 Bicarbonate 30 mmol/L 11/22 Unknown COMPREHENSIVE METABOLIC 73249 AGAP 8 mmol/L 2018 Unknown FREE T4 80515 T4 Free 0.86 ng/dL 12/09/2018 Unknown COMPLETE BLOOD COUNT 7382295 WBC 6.8 10e9/L 04/17/20 17 Unknown COMPLETE BLOOD COUNT 3130121 RBC 3.86 10e12/L 2016 Unknown COMPLETE BLOOD COUNT 4347117 HEMOGLOBIN 9.8 g/dL 04/17/20 17 Unknown COMPLETE BLOOD COUNT 9330508 HEMATOCRIT 31.1 % 04/17/20 17 Unknown COMPLETE BLOOD COUNT 0004915 MCV 80.6 fL 7 Unknown COMPLETE BLOOD COUNT 9242148 MCH 25.4 pg 7 Unknown COMPLETE BLOOD COUNT 1523277 MCHC 31.5 g/dL 7 Unknown COMPLETE BLOOD COUNT 1278579 PLATELET COUNT 247 10e9/L Unknown COMPLETE BLOOD COUNT 6478766 Mean Plt Volume 9.7 fL Unknown COMPLETE BLOOD COUNT 7319169 Neut Auto 74.1 % 7 Unknown COMPLETE BLOOD COUNT 5941341 Lymph Auto 12.0 % 04/17/20 17 Unknown COMPLETE BLOOD COUNT 4641611 Braxton Auto 10.8 % 7 Unknown COMPLETE BLOOD COUNT 6832685 Eos Auto 2.5 % 7 Unknown COMPLETE BLOOD COUNT 1240996 RDW 15.9 % 7 Unknown COMPLETE BLOOD COUNT 7061809 Baso Auto 0.6 % 7 Unknown COMPLETE BLOOD COUNT 3886036 Neutrophil Abs 5.04 10e9/L Unknown COMPLETE BLOOD COUNT 2499972 Lymphocyte Abs 0.82 10e9/L Unknown COMPLETE BLOOD COUNT 0821096 Monocyte Abs 0.73 10e9/L 03/25 Unknown COMPLETE BLOOD COUNT 2907669 Eosinophil Abs 0.17 10e9/L Unknown COMPLETE BLOOD COUNT 3406651 Basophil Abs 0.04 10e9/L 03/25 Unknown COMPLETE BLOOD COUNT 5775136 RDW-SD 44.4 fL 7 Unknown MEAN GLUC 9393310 Calc Mean Gluc 223 mg/dL 04/17/2017 Unkn own GFR CALC 9752722 GFR Afr Amr >60 mL/min 04/17/2017 Unknow n GFR CALC 2096246 GFR Non Afr Amr >60 mL/min 04/17/2017 Un known GLYCOSYLATED HEMOGLOBIN TEST 00716 Hgb A1c 50269-0 9.4 % 0 04/17/2017 Unknown IRON 19563 Iron 37 ug/dL 04/17/2017 Unknown VITAMIN B 12 85054 VITAMIN B12 280 pg/mL 04/17/2017 Unkn own THYROID STIMULATING HORMONE 64831 TSH 2.481 uIU/mL 04/17/2017 Unknown COMPREHENSIVE METABOLIC 70636 AST 13 U/L 2016 Unknown COMPREHENSIVE METABOLIC 87274 ALT 12 U/L 2016 Unknown COMPREHENSIVE METABOLIC 59132 BUN 18 mg/dL 2016 Unknown COMPREHENSIVE METABOLIC 92511 ALBUMIN 4.7 g/dL 2016 Unknown COMPREHENSIVE METABOLIC 87348 CHLORIDE 103 mmol/L 04/17 Unknown COMPREHENSIVE METABOLIC 14866 Bili Total 0.4 mg/dL 04/17 Unknown COMPREHENSIVE METABOLIC 80246 ALK PHOS 49 U/L 2016 Unknown COMPREHENSIVE METABOLIC 07398 SODIUM 140 mmol/L 04/17 Unknown COMPREHENSIVE METABOLIC 62547 CREATININE 1.14 mg/dL 03/25 Unknown COMPREHENSIVE METABOLIC 90298 CALCIUM 9.4 mg/dL 2016 Unknown COMPREHENSIVE METABOLIC 31079 POTASSIUM 4.4 mmol/L 04/17 Unknown COMPREHENSIVE METABOLIC 61487 Total Protein 6.7 g/dL Unknown COMPREHENSIVE METABOLIC 19132 Glucose 266 mg/dL 2016 Unknown COMPREHENSIVE METABOLIC 68587 Bicarbonate 25 mmol/L 03/25 Unknown COMPREHENSIVE METABOLIC 38503 AGAP 12 mmol/L 2016 Unknown FERRITIN 55857 FERRITIN 10.0 ng/mL 04/17/2017 Unknown COMPLETE BLOOD COUNT 4906543 WBC 6.8 10e9/L 12/22/19 17 Unknown COMPLETE BLOOD COUNT 4853240 RBC 3.70 10e12/L 2016 Unknown COMPLETE BLOOD COUNT 0791709 HEMOGLOBIN 8.0 g/dL 12/22/19 17 Unknown COMPLETE BLOOD COUNT 6489363 HEMATOCRIT 26.7 % 12/22/19 17 Unknown COMPLETE BLOOD COUNT 5211322 MCV 72.2 fL 7 Unknown COMPLETE BLOOD COUNT 9239087 MCH 21.6 pg 7 Unknown COMPLETE BLOOD COUNT 8240301 MCHC 30.0 g/dL 7 Unknown COMPLETE BLOOD COUNT 3912656 PLATELET COUNT 290 10e9/L Unknown COMPLETE BLOOD COUNT 3774956 Mean Plt Volume 9.3 fL Unknown COMPLETE BLOOD COUNT 6909275 Neut Auto 80.2 % 7 Unknown COMPLETE BLOOD COUNT 5225531 Lymph Auto 9.8 % 12/22/19 17 Unknown COMPLETE BLOOD COUNT 6103891 Bra[place] Auto 8.1 % 7 Unknown COMPLETE BLOOD COUNT 7574746 RDW 17.4 % 7 Unknown COMPLETE BLOOD COUNT 6538945 Eos Auto 1.5 % 7 Unknown COMPLETE BLOOD COUNT 9912886 Baso Auto 0.4 % 7 Unknown COMPLETE BLOOD COUNT 6894681 Neutrophil Abs 5.45 10e9/L Unknown COMPLETE BLOOD COUNT 7967944 Lymphocyte Abs 0.67 10e9/L Unknown COMPLETE BLOOD COUNT 5563411 Monocyte Abs 0.55 10e9/L 11/24 Unknown COMPLETE BLOOD COUNT 6730870 Eosinophil Abs 0.10 10e9/L Unknown COMPLETE BLOOD COUNT 2665766 Basophil Abs 0.03 10e9/L 11/24 Unknown COMPLETE BLOOD COUNT 6646462 RDW-SD 44.1 fL 7 Unknown COMPLETE BLOOD COUNT 1457921 WBC 7.6 10e9/L 12/13/19 17 Unknown COMPLETE BLOOD COUNT 4975150 RBC 3.71 10e12/L 2016 Unknown COMPLETE BLOOD COUNT 6631650 HEMOGLOBIN 8.0 g/dL 12/13/19 17 Unknown COMPLETE BLOOD COUNT 5694594 HEMATOCRIT 27.3 % 12/13/19 17 Unknown COMPLETE BLOOD COUNT 6951782 MCV 73.6 fL 7 Unknown COMPLETE BLOOD COUNT 1034558 MCH 21.6 pg 7 Unknown COMPLETE BLOOD COUNT 7348603 MCHC 29.3 g/dL 7 Unknown COMPLETE BLOOD COUNT 7787945 PLATELET COUNT 330 10e9/L Unknown COMPLETE BLOOD COUNT 5021668 Mean Plt Volume 9.7 fL Unknown COMPLETE BLOOD COUNT 7847168 Neut Auto 73.2 % 7 Unknown COMPLETE BLOOD COUNT 9387544 Lymph Auto 14.5 % 12/13/19 17 Unknown COMPLETE BLOOD COUNT 1037935 [place] Auto 10.5 % 7 Unknown COMPLETE BLOOD COUNT 4020851 RDW 17.3 % 7 Unknown COMPLETE BLOOD COUNT 9316367 Eos Auto 1.3 % 7 Unknown COMPLETE BLOOD COUNT 4335199 Baso Auto 0.5 % 7 Unknown COMPLETE BLOOD COUNT 1285626 Neutrophil Abs 5.56 10e9/L Unknown COMPLETE BLOOD COUNT 8087109 Lymphocyte Abs 1.10 10e9/L Unknown COMPLETE BLOOD COUNT 2109812 Monocyte Abs 0.80 10e9/L 11/23 Unknown COMPLETE BLOOD COUNT 8120138 Eosinophil Abs 0.10 10e9/L Unknown COMPLETE BLOOD COUNT 4536996 RDW-SD 45.2 fL 7 Unknown COMPLETE BLOOD COUNT 8127109 Basophil Abs 0.04 10e9/L 11/23 Unknown IRON 36727 Iron 69 ug/dL 03/09/2016 Unknown VITAMIN B 12 93768 VITAMIN B12 311 pg/mL 03/09/2016 Unkn own MEAN GLUC 5073993 Mean Glucose 260 mg/dL 03/07/2016 Unknow n GLYCOSYLATED HEMOGLOBIN TEST 47184 Hgb A1c 31784-8 10.7 % 0 03/07/2016 Unknown COMPREHENSIVE METABOLIC 19302 AST 14 U/L 2015 Unknown COMPREHENSIVE METABOLIC 21990 ALT 21 U/L 2015 Unknown COMPREHENSIVE METABOLIC 27293 BUN 27 mg/dL 2015 Unknown COMPREHENSIVE METABOLIC 43910 ALBUMIN 4.5 g/dL 2015 Unknown COMPREHENSIVE METABOLIC 92268 CHLORIDE 101 mmol/L 03/06 Unknown COMPREHENSIVE METABOLIC 75999 Bili Total 0.4 mg/dL 03/06 Unknown COMPREHENSIVE METABOLIC 19631 ALK PHOS 49 U/L 2015 Unknown COMPREHENSIVE METABOLIC 64508 SODIUM 136 mmol/L 03/06 Unknown COMPREHENSIVE METABOLIC 46168 CREATININE 1.16 mg/dL 02/22 Unknown COMPREHENSIVE METABOLIC 57875 CALCIUM 9.9 mg/dL 2015 Unknown COMPREHENSIVE METABOLIC 79309 POTASSIUM 4.5 mmol/L 03/06 Unknown COMPREHENSIVE METABOLIC 86030 Total Protein 6.7 g/dL Unknown COMPREHENSIVE METABOLIC 53151 Glucose 245 mg/dL 2015 Unknown COMPREHENSIVE METABOLIC 36568 Bicarbonate 24 mmol/L 02/22 Unknown COMPREHENSIVE METABOLIC 16946 AGAP 11 mmol/L 2015 Unknown THYROID STIMULATING HORMONE 91094 TSH 0.775 uIU/mL 03/06/2016 Unknown TESTOSTERONE TOTAL 43263 Testos Total 96 ng/dL 03/06/20 16 Unknown LIPID GROUP 98611 Cholesterol 146 mg/dL 03/06/2016 Unkno wn LIPID GROUP 58955 Triglyceride 249 mg/dL 03/06/2016 Unkn own LIPID GROUP 01840 HDL CHOLESTEROL 46 mg/dL 03/06/2016 U nknown LIPID GROUP 32269 Chol/HDL Ratio 3.17 ratio 03/06/2016 U nknown LIPID GROUP 97964 NON-HDL Chol 100 mg/dL 03/06/2016 Unkn own LIPID GROUP 90200 LDL Cholesterol 50 mg/dL 03/06/2016 U nknown COMPLETE BLOOD COUNT 0151433 WBC 11.2 10e9/L 016 Unknown COMPLETE BLOOD COUNT 4240504 RBC 3.94 10e12/L 2015 Unknown COMPLETE BLOOD COUNT 3426265 HEMOGLOBIN 11.4 g/dL 03/06/20 16 Unknown COMPLETE BLOOD COUNT 8487347 HEMATOCRIT 33.7 % 03/06/20 16 Unknown COMPLETE BLOOD COUNT 9500643 MCV 85.5 fL 6 Unknown COMPLETE BLOOD COUNT 1141630 MCH 28.9 pg 6 Unknown COMPLETE BLOOD COUNT 0845706 MCHC 33.8 g/dL 6 Unknown COMPLETE BLOOD COUNT 6188233 PLATELET COUNT 204 10e9/L Unknown COMPLETE BLOOD COUNT 9656604 Mean Plt Volume 10.1 fL Unknown COMPLETE BLOOD COUNT 4287660 Neut Auto 85.9 % 6 Unknown COMPLETE BLOOD COUNT 8207715 Lymph Auto 6.8 % 03/06/20 16 Unknown COMPLETE BLOOD COUNT 4079341 Braxton Auto 7.0 % 6 Unknown COMPLETE BLOOD COUNT 5621657 Eos Auto 0.1 % 6 Unknown COMPLETE BLOOD COUNT 2550620 RDW 13.7 % 6 Unknown COMPLETE BLOOD COUNT 1806275 Baso Auto 0.2 % 6 Unknown COMPLETE BLOOD COUNT 9618505 Neutrophil Abs 9.62 10e9/L Unknown COMPLETE BLOOD COUNT 4161401 Lymphoctye Abs 0.76 10e9/L Unknown COMPLETE BLOOD COUNT 6592420 Monocyte Abs 0.78 10e9/L 02/22 Unknown COMPLETE BLOOD COUNT 3524861 Eosinophil Abs 0.01 10e9/L Unknown COMPLETE BLOOD COUNT 9545184 RDW-SD 41.9 fL 6 Unknown COMPLETE BLOOD COUNT 2393853 Basophil Abs 0.02 10e9/L 02/22 Unknown FREE T4 09894 T4 Free 0.89 ng/dL 03/06/2016 Unknown GFR CALC 0190582 GFR Non Afr Amr >60 mL/min 03/06/2016 Un known GFR CALC 6098949 GFR Afr Amr >60 mL/min 03/06/2016 Unknow n PSA EQUIMOLAR JONATAN 58472 PSA Total 0.78 ng/mL 6 Unknown FREE T4 51467 FREE T4 0.90 NG/DL 07/01/2015 Unknown LIPID GROUP 33352 HDL TEST 44 MG/DL 07/01/2015 Unknown LIPID GROUP 03435 TRIG 303 MG/DL 07/01/2015 Unknown LIPID GROUP 01364 TEST LDL 56 MG/DL 07/01/2015 Unknown LIPID GROUP 98573 CHOL 161 MG/DL 07/01/2015 Unknown LIPID GROUP 70953 RCHOL/HDL 3.66 RATIO 07/01/2015 Unknow n LIPID GROUP 63786 NON-HDL CH 117 MG/DL 07/01/2015 Unknow n THYROID STIMULATING HORMONE 55404 TSH 1.783 uIU/ML 07/01/2015 Unknown COMPLETE BLOOD COUNT 8329127 WBC 6.6 10e9/L 07/01/20 15 Unknown COMPLETE BLOOD COUNT 1349369 RBC 4.18 10e12/L 2014 Unknown COMPLETE BLOOD COUNT 6778126 HGB 12.2 g/dL 5 Unknown COMPLETE BLOOD COUNT 2747425 HCT DET 37.0 % 5 Unknown COMPLETE BLOOD COUNT 4757423 MCV 88.5 fL 5 Unknown COMPLETE BLOOD COUNT 7637904 MCH 29.2 pg 5 Unknown COMPLETE BLOOD COUNT 2192931 MCHC 33.0 g/dL 5 Unknown COMPLETE BLOOD COUNT 8482547 PLT 224 10e9/L 07/01/20 15 Unknown COMPLETE BLOOD COUNT 6356304 MPV 10.4 fL 5 Unknown COMPLETE BLOOD COUNT 6152870 SUSIE % 72.6 % 5 Unknown COMPLETE BLOOD COUNT 6464797 LY % 14.1 % 5 Unknown COMPLETE BLOOD COUNT 2305444 MON % 10.2 % 5 Unknown COMPLETE BLOOD COUNT 3266992 EOS % 2.6 % 5 Unknown COMPLETE BLOOD COUNT 2510451 BASO % 0.5 % 5 Unknown COMPLETE BLOOD COUNT 1506696 RDW 14.1 % 5 Unknown COMPLETE BLOOD COUNT 6782656 ABS SUSIE 4.79 10e9/L 015 Unknown COMPLETE BLOOD COUNT 2330507 ABS LYMPH 0.93 10e9/L 015 Unknown COMPLETE BLOOD COUNT 5066008 ABS MONO 0.67 10e9/L 015 Unknown COMPLETE BLOOD COUNT 9047650 ABS EOS 0.17 10e9/L 015 Unknown COMPLETE BLOOD COUNT 6160210 ABS BASO 0.03 10e9/L 015 Unknown COMPLETE BLOOD COUNT 0603415 RDW-SD 43.9 fL 5 Unknown PSA EQUIMOLAR JONATAN 14858 PSA EQ 0.73 NG/ML 5 Unknown COMPREHENSIVE METABOLIC 78491 AST 24 U/L 2014 Unknown COMPREHENSIVE METABOLIC 03968 ALT 26 IU/L 2014 Unknown COMPREHENSIVE METABOLIC 20414 BUN 26 MG/DL 2014 Unknown COMPREHENSIVE METABOLIC 32808 ALBUMIN 4.6 GM/DL 2014 Unknown COMPREHENSIVE METABOLIC 04378 CHLORIDE 102 MMOL/L 06/01 Unknown COMPREHENSIVE METABOLIC 08772 BILI TOT 0.5 MG/DL 2014 Unknown COMPREHENSIVE METABOLIC 02283 ALK PHOS 56 U/L 2014 Unknown COMPREHENSIVE METABOLIC 52308 SODIUM 136 MMOL/L 06/01 Unknown COMPREHENSIVE METABOLIC 11497 CREATININE 1.16 MG/DL 04/2015 Unknown COMPREHENSIVE METABOLIC 60489 CALCIUM 9.8 MG/DL 2014 Unknown COMPREHENSIVE METABOLIC 13565 POTASSIUM 4.6 MMOL/L 06/01 Unknown COMPREHENSIVE METABOLIC 92612 PROT TOT 7.4 GM/DL 2014 Unknown COMPREHENSIVE METABOLIC 63105 Glucose 223 MG/DL 2014 Unknown COMPREHENSIVE METABOLIC 08829 BICARB 27 MMOL/L 2014 Unknown COMPREHENSIVE METABOLIC 13685 ANION GAP 7 MEQ/L 2014 Unknown GFR CALC 2306599 GFR AA >60 ML/MIN 06/01/2015 Unknown GFR CALC 2374933 GFR NON-AA >60 ML/MIN 06/01/2015 Unknown GLYCOSYLATED HEMOGLOBIN TEST 97056 A1C HPLC 22062-4 8.9 % 0 06/01/2015 Unknown GFR CALC 2103752 GFR AA >60 ML/MIN 02/25/2015 Unknown GFR CALC 1280580 GFR NON-AA >60 ML/MIN 02/25/2015 Unknown COMPREHENSIVE METABOLIC 74371 AST 24 U/L 2014 Unknown COMPREHENSIVE METABOLIC 39596 ALT 25 IU/L 2014 Unknown COMPREHENSIVE METABOLIC 71861 BUN 14 MG/DL 2014 Unknown COMPREHENSIVE METABOLIC 46894 ALBUMIN 4.5 GM/DL 2014 Unknown COMPREHENSIVE METABOLIC 97859 CHLORIDE 99 MMOL/L 2014 Unknown COMPREHENSIVE METABOLIC 48099 BILI TOT 0.5 MG/DL 2014 Unknown COMPREHENSIVE METABOLIC 05589 ALK PHOS 48 U/L 2014 Unknown COMPREHENSIVE METABOLIC 47914 SODIUM 136 MMOL/L 02/25 Unknown COMPREHENSIVE METABOLIC 31843 CREATININE 0.97 MG/DL 12/2014 Unknown COMPREHENSIVE METABOLIC 72874 CALCIUM 9.9 MG/DL 2014 Unknown COMPREHENSIVE METABOLIC 57279 POTASSIUM 4.4 MMOL/L 02/25 Unknown COMPREHENSIVE METABOLIC 07524 PROT TOT 7.1 GM/DL 2014 Unknown COMPREHENSIVE METABOLIC 43648 Glucose 171 MG/DL 2014 Unknown COMPREHENSIVE METABOLIC 21943 BICARB 25 MMOL/L 2014 Unknown COMPREHENSIVE METABOLIC 64538 ANION GAP 12 MEQ/L 2014 Unknown PROTEIN/CREAT URINE WITH RATIO [id number]|[id number] PROT R U 19 MG/D L 08/27/2014 Unknown PROTEIN/CREAT URINE WITH RATIO 75268|44324 CREAT R U 111 MG/ DL 08/27/2014 Unknown PROTEIN/CREAT URINE WITH RATIO 27056|21541 XRATIO P/C 171 MG /G 08/27/2014 Unknown MICROALBUMIN URINE RANDOM 14821 MICRL MG/L 34.7 MG/L 12/2013 Unknown MICROALBUMIN URINE RANDOM 37430 XM.ALB/CRE 32.7 MG/GCR 1 10/28/2013 Unknown MICROALBUMIN URINE RANDOM 47385 CREAT MG/D 106 MG/DL 12/2013 Unknown MICROALBUMIN URINE RANDOM 58495 CRE/100 1.06 G/L 12/2013 Unknown COMPLETE BLOOD COUNT [id number] WBC 7.1 10e9/L 08/05/20 14 Unknown COMPLETE BLOOD COUNT [id number] RBC 4.35 10e12/L 2013 Unknown COMPLETE BLOOD COUNT [id number] HGB 12.9 g/dL 4 Unknown COMPLETE BLOOD COUNT [id number] HCT DET 39.4 % 4 Unknown COMPLETE BLOOD COUNT [id number] MCV 90.6 fL 4 Unknown COMPLETE BLOOD COUNT [id number] MCH 29.7 pg 4 Unknown COMPLETE BLOOD COUNT [id number] MCHC 32.7 g/dL 4 Unknown COMPLETE BLOOD COUNT [id number] PLT 240 10e9/L 08/05/20 14 Unknown COMPLETE BLOOD COUNT [id number] MPV 10.3 fL 4 Unknown COMPLETE BLOOD COUNT [id number] SUSIE % 70.0 % 4 Unknown COMPLETE BLOOD COUNT [id number] LY % 16.4 % 4 Unknown COMPLETE BLOOD COUNT [id number] MON % 9.2 % 4 Unknown COMPLETE BLOOD COUNT [id number] EOS % 3.8 % 4 Unknown COMPLETE BLOOD COUNT [id number] BASO % 0.6 % 4 Unknown COMPLETE BLOOD COUNT [id number] RDW 13.4 % 4 Unknown COMPLETE BLOOD COUNT [id number] ABS SUSIE 4.97 10e9/L 014 Unknown COMPLETE BLOOD COUNT [id number] ABS LYMPH 1.16 10e9/L 014 Unknown COMPLETE BLOOD COUNT [id number] ABS MONO 0.65 10e9/L 014 Unknown COMPLETE BLOOD COUNT [id number] ABS EOS 0.27 10e9/L 014 Unknown COMPLETE BLOOD COUNT [id number] ABS BASO 0.04 10e9/L 014 Unknown COMPLETE BLOOD COUNT [id number] RDW-SD 43.3 fL 4 Unknown FREE T4 81787 FREE T4 1.02 NG/DL 08/05/2014 Unknown GFR CALC 3288270 GFR AA >60 ML/MIN 08/05/2014 Unknown GFR CALC 6227249 GFR NON-AA >60 ML/MIN 08/05/2014 Unknown GLYCOSYLATED HEMOGLOBIN TEST 66594 A1C HPLC 05471-2 7.7 % 1 10/05/2013 Unknown COMPREHENSIVE METABOLIC 20213 AST 19 U/L 2013 Unknown COMPREHENSIVE METABOLIC 49553 ALT 21 IU/L 2013 Unknown COMPREHENSIVE METABOLIC 50029 BUN 25 MG/DL 2013 Unknown COMPREHENSIVE METABOLIC 16679 ALBUMIN 4.6 GM/DL 2013 Unknown COMPREHENSIVE METABOLIC 58198 CHLORIDE 103 MMOL/L 08/05 Unknown COMPREHENSIVE METABOLIC 30661 BILI TOT 0.4 MG/DL 2013 Unknown COMPREHENSIVE METABOLIC 76380 ALK PHOS 45 U/L 2013 Unknown COMPREHENSIVE METABOLIC 24536 SODIUM 138 MMOL/L 08/05 Unknown COMPREHENSIVE METABOLIC 62338 CREATININE 1.01 MG/DL 07/25 Unknown COMPREHENSIVE METABOLIC 69283 CALCIUM 9.8 MG/DL 2013 Unknown COMPREHENSIVE METABOLIC 57949 POTASSIUM 4.7 MMOL/L 08/05 Unknown COMPREHENSIVE METABOLIC 96052 PROT TOT 7.0 GM/DL 2013 Unknown COMPREHENSIVE METABOLIC 84782 Glucose 145 MG/DL 2013 Unknown COMPREHENSIVE METABOLIC 60621 BICARB 27 MMOL/L 2013 Unknown COMPREHENSIVE METABOLIC 06210 ANION GAP 8 MEQ/L 2013 Unknown THYROID STIMULATING HORMONE 38755 TSH 1.922 uIU/ML 08/05/2014 Unknown LIPID GROUP 90257 HDL TEST 47 MG/DL 08/05/2014 Unknown LIPID GROUP 21719 TRIG 224 MG/DL 08/05/2014 Unknown LIPID GROUP 59232 TEST LDL 125 MG/DL 08/05/2014 Unknown LIPID GROUP 18369 CHOL 217 MG/DL 08/05/2014 Unknown LIPID GROUP 15846 RCHOL/HDL 4.62 RATIO 08/05/2014 Unknow n LIPID GROUP 70470 NON-HDL CH 170 MG/DL 08/05/2014 Unknow n MYCOPLASMA ANTIBODY, IFA [id number] MYCO G IFA 1:256 03/24 Unknown MYCOPLASMA ANTIBODY, IFA [id number] MYCO M IFA <1:10 03/24 Unknown MYCOPLASMA ANTIBODY, IFA [id number] MYCO INTER SEE BELO 03/24 Unknown COMPLETE BLOOD COUNT [id number] WBC 8.3 10e9/L 04/09/20 13 Unknown COMPLETE BLOOD COUNT [id number] RBC 4.61 10e12/L 2012 Unknown COMPLETE BLOOD COUNT 1699071 HGB 13.9 g/dL 3 Unknown COMPLETE BLOOD COUNT [id number] HCT DET 41.2 % 3 Unknown COMPLETE BLOOD COUNT 2731837 MCV 89.4 fL 3 Unknown COMPLETE BLOOD COUNT 1121554 MCH 30.2 pg 3 Unknown COMPLETE BLOOD COUNT 1924388 MCHC 33.7 g/dL 3 Unknown COMPLETE BLOOD COUNT 2832753 PLT 249 10e9/L 04/09/20 13 Unknown COMPLETE BLOOD COUNT [id number] MPV 9.8 fL 3 Unknown COMPLETE BLOOD COUNT 7443036 SUSIE % 65.9 % 3 Unknown COMPLETE BLOOD COUNT [id number] LY % 19.8 % 3 Unknown COMPLETE BLOOD COUNT [id number] MON % 10.8 % 3 Unknown COMPLETE BLOOD COUNT 7235351 EOS % 3.0 % 3 Unknown COMPLETE BLOOD COUNT [id number] BASO % 0.5 % 3 Unknown COMPLETE BLOOD COUNT 6303683 RDW 14.0 % 3 Unknown COMPLETE BLOOD COUNT [id number] ABS SUSIE 5.47 10e9/L 013 Unknown COMPLETE BLOOD COUNT [id number] ABS LYMPH 1.64 10e9/L 013 Unknown COMPLETE BLOOD COUNT [id number] ABS MONO 0.90 10e9/L 013 Unknown COMPLETE BLOOD COUNT [id number] ABS EOS 0.25 10e9/L 013 Unknown COMPLETE BLOOD COUNT 3553515 ABS BASO 0.04 10e9/L 013 Unknown COMPLETE BLOOD COUNT 1682129 RDW-SD 45.0 fL 3 Unknown URIC ACID 27847 URIC ACID 5.3 MG/DL 02/12/2013 Unknown FREE T4 99703 FREE T4 1.09 NG/DL 02/11/2013 Unknown COMPLETE BLOOD COUNT [id number] WBC 6.3 10e9/L 02/12/20 13 Unknown COMPLETE BLOOD COUNT [id number] RBC 4.29 10e12/L 2012 Unknown COMPLETE BLOOD COUNT 3793515 HGB 13.1 g/dL 3 Unknown COMPLETE BLOOD COUNT [id number] HCT DET 39.7 % 3 Unknown COMPLETE BLOOD COUNT 1052446 MCV 92.5 fL 3 Unknown COMPLETE BLOOD COUNT 4704201 MCH 30.5 pg 3 Unknown COMPLETE BLOOD COUNT 6424205 MCHC 33.0 g/dL 3 Unknown COMPLETE BLOOD COUNT 6473483 PLT 247 10e9/L 02/12/20 13 Unknown COMPLETE BLOOD COUNT 3655914 MPV 10.0 fL 3 Unknown COMPLETE BLOOD COUNT 0284907 SUSIE % 73.4 % 3 Unknown COMPLETE BLOOD COUNT 1955421 LY % 13.5 % 3 Unknown COMPLETE BLOOD COUNT [id number] MON % 9.4 % 3 Unknown COMPLETE BLOOD COUNT [id number] EOS % 2.9 % 3 Unknown COMPLETE BLOOD COUNT [id number] BASO % 0.8 % 3 Unknown COMPLETE BLOOD COUNT 0548646 RDW 13.8 % 3 Unknown COMPLETE BLOOD COUNT [id number] ABS SUSIE 4.62 10e9/L 013 Unknown COMPLETE BLOOD COUNT [id number] ABS LYMPH 0.85 10e9/L 013 Unknown COMPLETE BLOOD COUNT [id number] ABS MONO 0.59 10e9/L 013 Unknown COMPLETE BLOOD COUNT [id number] ABS EOS 0.18 10e9/L 013 Unknown COMPLETE BLOOD COUNT [id number] ABS BASO 0.05 10e9/L 013 Unknown COMPLETE BLOOD COUNT 0595906 RDW-SD 45.7 fL 3 Unknown HEMOGLOBIN A1C (GLYCOSYLATED) 2890939 A1C HPLC 66117-9 7.5 % 02/11/2013 Unknown THYROID STIMULATING HORMONE 51090 TSH 1.466 uIU/ML 02/11/2013 Unknown VITAMIN B 12 FOLIC ACID 72377|11460 VIT B 12 625 PG/ML 01/23 Unknown VITAMIN B 12 FOLIC ACID 33920|80942 FOLIC ACID 15.6 NG/ML Unknown COMPREHENSIVE METABOLIC 89922 AST 18 U/L 2012 Unknown COMPREHENSIVE METABOLIC 56784 ALT 21 IU/L 2012 Unknown COMPREHENSIVE METABOLIC 23887 BUN 25 MG/DL 2012 Unknown COMPREHENSIVE METABOLIC 46265 ALBUMIN 4.6 GM/DL 2012 Unknown COMPREHENSIVE METABOLIC 49737 CHLORIDE 103 MMOL/L 02/11 Unknown COMPREHENSIVE METABOLIC 75434 BILI TOT 0.3 MG/DL 2012 Unknown COMPREHENSIVE METABOLIC 13781 ALK PHOS 53 U/L 2012 Unknown COMPREHENSIVE METABOLIC 29043 SODIUM 136 MMOL/L 02/11 Unknown COMPREHENSIVE METABOLIC 70769 CREATININE 1.16 MG/DL 01/23 Unknown COMPREHENSIVE METABOLIC 39114 CALCIUM 10.0 MG/DL 02/11 Unknown COMPREHENSIVE METABOLIC 85917 POTASSIUM 4.9 MMOL/L 02/11 Unknown COMPREHENSIVE METABOLIC 76353 PROT TOT 7.0 GM/DL 2012 Unknown COMPREHENSIVE METABOLIC 34191 Glucose 192 MG/DL 2012 Unknown COMPREHENSIVE METABOLIC 54074 BICARB 26 MMOL/L 2012 Unknown COMPREHENSIVE METABOLIC 07451 ANION GAP 7 MEQ/L 2012 Unknown GFR CALC 0009616 GFR AA >60 ML/MIN 02/11/2013 Unknown GFR CALC 7402848 GFR NON-AA >60 ML/MIN 02/11/2013 Unknown C-REACTIVE PROTEIN (CRP) QUANT 39902 CRP 2.7 MG/DL 02/11/2013 Unknown GFR CALC 9217447 GFR AA >60 ML/MIN 09/19/2012 Unknown GFR CALC 8835203 GFR NON-AA >60 ML/MIN 09/19/2012 Unknown HEMOGLOBIN A1C (GLYCOSYLATED) 1448860 A1C HPLC 60900-4 7.2 % 09/19/2012 Unknown COMPREHENSIVE METABOLIC 91597 AST 13 U/L 2011 Unknown COMPREHENSIVE METABOLIC 59043 ALT 17 IU/L 2011 Unknown COMPREHENSIVE METABOLIC 56032 BUN 25 MG/DL 2011 Unknown COMPREHENSIVE METABOLIC 12996 ALBUMIN 4.5 GM/DL 2011 Unknown COMPREHENSIVE METABOLIC 42675 CHLORIDE 104 MMOL/L 09/19 Unknown COMPREHENSIVE METABOLIC 71989 BILI TOT 0.3 MG/DL 2011 Unknown COMPREHENSIVE METABOLIC 18560 ALK PHOS 43 U/L 2011 Unknown COMPREHENSIVE METABOLIC 49598 SODIUM 139 MMOL/L 09/19 Unknown COMPREHENSIVE METABOLIC 07887 CREATININE 1.10 MG/DL 08/25 Unknown COMPREHENSIVE METABOLIC 95073 CALCIUM 9.8 MG/DL 2011 Unknown COMPREHENSIVE METABOLIC 77018 POTASSIUM 4.8 MMOL/L 09/19 Unknown COMPREHENSIVE METABOLIC 38337 PROT TOT 6.5 GM/DL 2011 Unknown COMPREHENSIVE METABOLIC 29431 Glucose 148 MG/DL 2011 Unknown COMPREHENSIVE METABOLIC 68777 BICARB 25 MMOL/L 2011 Unknown COMPREHENSIVE METABOLIC 02085 ANION GAP 10 MEQ/L 2011 Unknown LIPID GROUP 23956 HDL TEST 44 MG/DL 09/19/2012 Unknown LIPID GROUP 26942 TRIG 318 MG/DL 09/19/2012 Unknown LIPID GROUP 31954 TEST LDL 100 MG/DL 09/19/2012 Unknown LIPID GROUP 52570 CHOL 208 MG/DL 09/19/2012 Unknown LIPID GROUP 67537 RCHOL/HDL 4.73 RATIO 09/19/2012 Unknow n FREE T4 50688 FREE T4 0.87 NG/DL 05/06/2012 Unknown GLYCOSYLATED HEMOGLOBIN TEST 91058 A1C HPLC 70883-6 6.4 % 0 05/06/2012 Unknown LIPID GROUP 79568 HDL TEST 44 MG/DL 05/06/2012 Unknown LIPID GROUP 38992 TRIG 177 MG/DL 05/06/2012 Unknown LIPID GROUP 48205 TEST LDL 113 MG/DL 05/06/2012 Unknown LIPID GROUP 86121 CHOL 192 MG/DL 05/06/2012 Unknown LIPID GROUP 78400 RCHOL/HDL 4.36 RATIO 05/06/2012 Unknow n THYROID STIMULATING HORMONE 80183 TSH 1.151 uIU/ML 05/06/2012 Unknown COMPLETE BLOOD COUNT 69603 WBC 7.8 10e9/L 05/06/20 12 Unknown COMPLETE BLOOD COUNT 27702 RBC 4.31 10e12/L 2011 Unknown COMPLETE BLOOD COUNT 25725 HGB 12.8 g/dL 2 Unknown COMPLETE BLOOD COUNT 61776 HCT DET 39.1 % 2 Unknown COMPLETE BLOOD COUNT 93360 MCV 90.7 fL 2 Unknown COMPLETE BLOOD COUNT 40213 MCH 29.7 pg 2 Unknown COMPLETE BLOOD COUNT 56161 MCHC 32.7 g/dL 2 Unknown COMPLETE BLOOD COUNT 94104 PLT 207 10e9/L 05/06/20 12 Unknown COMPLETE BLOOD COUNT 02063 MPV 10.2 fL 2 Unknown COMPLETE BLOOD COUNT 90307 SUSIE % 74.2 % 2 Unknown COMPLETE BLOOD COUNT 73012 LY % 12.8 % 2 Unknown COMPLETE BLOOD COUNT 44580 MON % 11.0 % 2 Unknown COMPLETE BLOOD COUNT 34997 EOS % 1.7 % 2 Unknown COMPLETE BLOOD COUNT 63987 BASO % 0.3 % 2 Unknown COMPLETE BLOOD COUNT 74599 RDW 13.7 % 2 Unknown COMPLETE BLOOD COUNT 21490 ABS SUSIE 5.79 10e9/L 012 Unknown COMPLETE BLOOD COUNT 96003 ABS LYMPH 1.00 10e9/L 012 Unknown COMPLETE BLOOD COUNT 30215 ABS MONO 0.86 10e9/L 012 Unknown COMPLETE BLOOD COUNT 64602 ABS EOS 0.13 10e9/L 012 Unknown COMPLETE BLOOD COUNT 07188 ABS BASO 0.02 10e9/L 012 Unknown COMPLETE BLOOD COUNT 97454 RDW-SD 44.4 fL 2 Unknown COMPREHENSIVE METABOLIC 53836 AST 13 U/L 2011 Unknown COMPREHENSIVE METABOLIC 66793 ALT 14 IU/L 2011 Unknown COMPREHENSIVE METABOLIC 59091 BUN 17 MG/DL 2011 Unknown COMPREHENSIVE METABOLIC 87096 ALBUMIN 4.5 GM/DL 2011 Unknown COMPREHENSIVE METABOLIC 25539 CHLORIDE 101 MMOL/L 05/06 Unknown COMPREHENSIVE METABOLIC 08042 BILI TOT 0.5 MG/DL 2011 Unknown COMPREHENSIVE METABOLIC 32207 ALK PHOS 42 U/L 2011 Unknown COMPREHENSIVE METABOLIC 33915 SODIUM 141 MMOL/L 05/06 Unknown COMPREHENSIVE METABOLIC 15567 CREATININE 1.02 MG/DL 04/24 Unknown COMPREHENSIVE METABOLIC 76507 CALCIUM 9.7 MG/DL 2011 Unknown COMPREHENSIVE METABOLIC 61562 POTASSIUM 4.6 MMOL/L 05/06 Unknown COMPREHENSIVE METABOLIC 44109 PROT TOT 6.5 GM/DL 2011 Unknown COMPREHENSIVE METABOLIC 96801 Glucose 139 MG/DL 2011 Unknown COMPREHENSIVE METABOLIC 31840 BICARB 29 MMOL/L 2011 Unknown COMPREHENSIVE METABOLIC 68096 ANION GAP 11 MEQ/L 2011 Unknown GFR CALC 8919022 GFR AA >60 ML/MIN 05/06/2012 Unknown GFR CALC 2454015 GFR NON-AA 54.0L ML/MIN 05/06/2012 Unkno wn GLYCOSYLATED HEMOGLOBIN TEST 96776 A1C HPLC 75244-5 6.6 % 1 09/30/2010 Unknown FREE T4 47637 FREE T4 1.00 NG/DL 07/26/2011 Unknown LIPID GROUP 12896 HDL TEST 40 MG/DL 07/26/2011 Unknown LIPID GROUP 14889 TRIG 136 MG/DL 07/26/2011 Unknown LIPID GROUP 41621 TEST LDL 126 MG/DL 07/26/2011 Unknown LIPID GROUP 55053 CHOL 193 MG/DL 07/26/2011 Unknown LIPID GROUP 64664 RCHOL/HDL 4.83 RATIO 07/26/2011 Unknow n COMPREHENSIVE METABOLIC 00893 AST 15 U/L 2010 Unknown COMPREHENSIVE METABOLIC 53451 ALT 13 IU/L 2010 Unknown COMPREHENSIVE METABOLIC 35942 BUN 17 MG/DL 2010 Unknown COMPREHENSIVE METABOLIC 65183 ALBUMIN 4.4 GM/DL 2010 Unknown COMPREHENSIVE METABOLIC 51065 CHLORIDE 102 MMOL/L 07/26 Unknown COMPREHENSIVE METABOLIC 86812 BILI TOT 0.5 MG/DL 2010 Unknown COMPREHENSIVE METABOLIC 79226 ALK PHOS 54 U/L 2010 Unknown COMPREHENSIVE METABOLIC 29388 SODIUM 138 MMOL/L 07/26 Unknown COMPREHENSIVE METABOLIC 23976 CREATININE 0.95 MG/DL 10/2010 Unknown COMPREHENSIVE METABOLIC 68057 CALCIUM 9.3 MG/DL 2010 Unknown COMPREHENSIVE METABOLIC 22295 POTASSIUM 4.3 MMOL/L 07/26 Unknown COMPREHENSIVE METABOLIC 24701 PROT TOT 6.7 GM/DL 2010 Unknown COMPREHENSIVE METABOLIC 12611 Glucose 116 MG/DL 2010 Unknown COMPREHENSIVE METABOLIC 34984 BICARB 28 MMOL/L 2010 Unknown COMPREHENSIVE METABOLIC 85372 ANION GAP 8 MEQ/L 2010 Unknown PSA EQUIMOLAR JONATAN 03170 PSA EQ 1.01 NG/ML 11/02/201 1 Unknown COMPLETE BLOOD COUNT 89365 WBC 6.4 10e9/L 07/26/20 11 Unknown COMPLETE BLOOD COUNT 20719 RBC 4.43 10e12/L 2010 Unknown COMPLETE BLOOD COUNT 06163 HGB 13.2 g/dL 1 Unknown COMPLETE BLOOD COUNT 25589 HCT DET 39.3 % 1 Unknown COMPLETE BLOOD COUNT 87466 MCV 88.7 fL 1 Unknown COMPLETE BLOOD COUNT 90427 MCH 29.8 pg 1 Unknown COMPLETE BLOOD COUNT 72894 MCHC 33.6 g/dL 1 Unknown COMPLETE BLOOD COUNT 90779 PLT 226 10e9/L 07/26/20 11 Unknown COMPLETE BLOOD COUNT 10614 MPV 9.9 fL 1 Unknown COMPLETE BLOOD COUNT 04921 SUSIE % 65.4 % 1 Unknown COMPLETE BLOOD COUNT 10483 LY % 19.7 % 1 Unknown COMPLETE BLOOD COUNT 18095 MON % 10.8 % 1 Unknown COMPLETE BLOOD COUNT 55975 EOS % 3.6 % 1 Unknown COMPLETE BLOOD COUNT 41364 BASO % 0.5 % 1 Unknown COMPLETE BLOOD COUNT 40913 RDW 13.2 % 1 Unknown COMPLETE BLOOD COUNT 08742 ABS SUSIE 4.19 10e9/L 011 Unknown COMPLETE BLOOD COUNT 82656 ABS LYMPH 1.26 10e9/L 011 Unknown COMPLETE BLOOD COUNT 41283 ABS MONO 0.69 10e9/L 011 Unknown COMPLETE BLOOD COUNT 55316 ABS EOS 0.23 10e9/L 011 Unknown COMPLETE BLOOD COUNT 29670 ABS BASO 0.03 10e9/L 011 Unknown COMPLETE BLOOD COUNT 67552 RDW-SD 41.7 fL 1 Unknown THYROID STIMULATING HORMONE 34373 TSH 1.345 uIU/ML 07/26/2011 Unknown GFR CALC 9476795 GFR AA >60 ML/MIN 07/26/2011 Unknown GFR CALC 0259269 GFR NON-AA >60 ML/MIN 07/26/2011 Unknown BRAIN NATRIURETIC PEPTIDE(BNP) 78953 BRAIN PEP 23 pg/mL 01/19/2011 Unknown CANCEL 8050919 CANCEL FOOTNOTE 01/18/2011 Unknown TESTOSTERONE TOTAL 82737 TESTOS TO 138 NG/DL 12/19/2010 Unknown COMPLETE BLOOD COUNT 51208 WBC 8.4 10e9/L 12/08/19 11 Unknown COMPLETE BLOOD COUNT 07991 RBC 4.40 10e12/L 2010 Unknown COMPLETE BLOOD COUNT 32321 HGB 13.3 g/dL 1 Unknown COMPLETE BLOOD COUNT 47837 HCT DET 39.8 % 1 Unknown COMPLETE BLOOD COUNT 97392 MCV 90.5 fL 1 Unknown COMPLETE BLOOD COUNT 98936 MCH 30.2 pg 1 Unknown COMPLETE BLOOD COUNT 67901 MCHC 33.4 g/dL 1 Unknown COMPLETE BLOOD COUNT 76247 PLT 201 10e9/L 12/08/19 11 Unknown COMPLETE BLOOD COUNT 03092 MPV 10.6 fL 1 Unknown COMPLETE BLOOD COUNT 42376 SUSIE % 72.5 % 1 Unknown COMPLETE BLOOD COUNT 95565 LY % 14.8 % 1 Unknown COMPLETE BLOOD COUNT 81987 MON % 10.6 % 1 Unknown COMPLETE BLOOD COUNT 14965 EOS % 1.7 % 1 Unknown COMPLETE BLOOD COUNT 40133 BASO % 0.4 % 1 Unknown COMPLETE BLOOD COUNT 77740 RDW 13.7 % 1 Unknown COMPLETE BLOOD COUNT 26583 ABS SUSIE 6.09 10e9/L 011 Unknown COMPLETE BLOOD COUNT 60226 ABS LYMPH 1.24 10e9/L 011 Unknown COMPLETE BLOOD COUNT 10349 ABS MONO 0.89 10e9/L 011 Unknown COMPLETE BLOOD COUNT 40400 ABS EOS 0.14 10e9/L 011 Unknown COMPLETE BLOOD COUNT 82418 ABS BASO 0.03 10e9/L 011 Unknown COMPLETE BLOOD COUNT 54542 RDW-SD 44.0 fL 1 Unknown LIPID GROUP 11002 HDL TEST 40 MG/DL 12/07/2010 Unknown LIPID GROUP 90899 TRIG 383 MG/DL 12/07/2010 Unknown LIPID GROUP 04559 TEST LDL 82 MG/DL 12/07/2010 Unknown LIPID GROUP 11966 CHOL 199 MG/DL 12/07/2010 Unknown LIPID GROUP 13702 RCHOL/HDL 4.98 RATIO 12/07/2010 Unknow n GFR CALC 1675510 GFR AA >60 ML/MIN 12/07/2010 Unknown GFR CALC 2053627 GFR NON-AA >60 ML/MIN 12/07/2010 Unknown COMPREHENSIVE METABOLIC 55532 AST 29 U/L 2010 Unknown COMPREHENSIVE METABOLIC 92666 ALT 39 IU/L 2010 Unknown COMPREHENSIVE METABOLIC 38694 BUN 17 MG/DL 2010 Unknown COMPREHENSIVE METABOLIC 06590 ALBUMIN 4.9 GM/DL 2010 Unknown COMPREHENSIVE METABOLIC 40518 CHLORIDE 100 MMOL/L 12/07 Unknown COMPREHENSIVE METABOLIC 78938 BILI TOT 0.3 MG/DL 2010 Unknown COMPREHENSIVE METABOLIC 52119 ALK PHOS 53 U/L 2010 Unknown COMPREHENSIVE METABOLIC 40892 SODIUM 137 MMOL/L 12/07 Unknown COMPREHENSIVE METABOLIC 44920 CREATININE 0.98 MG/DL 11/22 Unknown COMPREHENSIVE METABOLIC 69520 CALCIUM 9.5 MG/DL 2010 Unknown COMPREHENSIVE METABOLIC 77933 POTASSIUM 4.3 MMOL/L 12/07 Unknown COMPREHENSIVE METABOLIC 80607 PROT TOT 6.6 GM/DL 2010 Unknown COMPREHENSIVE METABOLIC 41013 Glucose 176 MG/DL 2010 Unknown COMPREHENSIVE METABOLIC 65135 BICARB 28 MMOL/L 2010 Unknown COMPREHENSIVE METABOLIC 88882 ANION GAP 9 MEQ/L 2010 Unknown PSA EQUIMOLAR JONATAN 76637 PSA EQ 0.65 NG/ML 1 Unknown HEMOGLOBIN A1C (GLYCOSYLATED) 64095 A1C HPLC 45354-3 6.9 % 12/07/2010 Unknown Procedures Procedure Codes Date FLU VACC PRSV FREE INC ANTIG 65 AND OLDER CPT-4: 01327 08/07/2019 FLU VACC PRSV FREE INC ANTIG 65 AND OLDER CPT-4: 09457 08/07/2019 ADMIN INFLUENZA VIRUS VAC CPT-4: G0008 08/07/2019 THER/PROPH/DIAG INJ SC/IM CPT-4: 77893 07/14/2019 METHYLPREDNISOLONE INJECTION CPT-4: J2930 07/14/2019 ROUTINE VENIPUNCTURE CPT-4: 90452 06/17/2019 ASSAY THYROID STIM HORMONE CPT-4: 22534 06/17/2019 COMPREHEN METABOLIC PANEL CPT-4: 83684 06/17/2019 COMPLETE CBC W/AUTO DIFF WBC CPT-4: 64787 06/17/2019 ASSAY OF IRON CPT-4: 49984 06/17/2019 VITAMIN B-12 CPT-4: 90648 06/17/2019 RBC SED RATE AUTOMATED CPT-4: 74760 06/17/2019 THER/PROPH/DIAG INJ SC/IM CPT-4: 87645 06/10/2019 THER/PROPH/DIAG INJ SC/IM CPT-4: 81924 06/02/2019 THER/PROPH/DIAG INJ SC/IM CPT-4: 53274 05/27/2019 THER/PROPH/DIAG INJ SC/IM CPT-4: 80257 05/12/2019 ROUTINE VENIPUNCTURE CPT-4: 48081 05/08/2019 COMPREHEN METABOLIC PANEL CPT-4: 49799 05/08/2019 COMPLETE CBC W/AUTO DIFF WBC CPT-4: 10299 05/08/2019 A1C HPLC CPT-4: 68422 05/08/2019 VITAMIN D TOTAL (25 HYDROXY) CPT-4: 95672 05/08/2019 ASSAY OF IRON CPT-4: 89650 05/08/2019 ASSAY OF FERRITIN CPT-4: 49288 05/08/2019 VITAMIN B-12 CPT-4: 46358 05/08/2019 THER/PROPH/DIAG INJ SC/IM CPT-4: 54761 03/21/2019 METHYLPREDNISOLONE INJECTION CPT-4: J2930 03/21/2019 THER/PROPH/DIAG INJ SC/IM CPT-4: 39590 03/13/2019 METHYLPREDNISOLONE INJECTION CPT-4: J2930 03/13/2019 THER/PROPH/DIAG INJ SC/IM CPT-4: 51839 12/25/2018 METHYLPREDNISOLONE INJECTION CPT-4: J2930 12/25/2018 ROUTINE VENIPUNCTURE CPT-4: 30780 12/09/2018 ASSAY OF FREE THYROXINE CPT-4: 81152 12/09/2018 ASSAY THYROID STIM HORMONE CPT-4: 78216 12/09/2018 COMPREHEN METABOLIC PANEL CPT-4: 90433 12/09/2018 COMPLETE CBC W/AUTO DIFF WBC CPT-4: 91630 12/09/2018 LIPID PANEL CPT-4: 44024 12/09/2018 A1C HPLC CPT-4: 04276 12/09/2018 PRESCRIP TRANSMIT VIA ERX SY CPT-4: G8553 08/21/2018 PRESCRIP TRANSMIT VIA ERX SY CPT-4: G8553 08/07/2018 THER/PROPH/DIAG INJ SC/IM CPT-4: 92976 05/23/2018 METHYLPREDNISOLONE INJECTION CPT-4: J2930 05/23/2018 PRESCRIP TRANSMIT VIA ERX SY CPT-4: G8553 05/02/2018 THER/PROPH/DIAG INJ SC/IM CPT-4: 42728 04/29/2018 METHYLPREDNISOLONE INJECTION CPT-4: J2930 04/29/2018 DEXAMETHASONE SODIUM PHOS CPT-4: J1100 04/22/2018 THER/PROPH/DIAG INJ SC/IM CPT-4: 30089 04/22/2018 TRIAMCINOLONE ACET INJ NOS CPT-4: J3301 04/22/2018 PRESCRIP TRANSMIT VIA ERX SY CPT-4: G8553 04/22/2018 PRESCRIP TRANSMIT VIA ERX SY CPT-4: G8553 01/23/2018 URINALYSIS NONAUTO W/O SCOPE CPT-4: 59559 01/02/2018 URINE CULTURE/ COLONY COUNT CPT-4: 09695 01/02/2018 PRESCRIP TRANSMIT VIA ERX SY CPT-4: G8553 01/02/2018 PRESCRIP TRANSMIT VIA ERX SY CPT-4: G8553 12/28/2017 PRESCRIP TRANSMIT VIA ERX SY CPT-4: G8553 12/21/2017 CEFTRIAXONE SODIUM INJECTION CPT-4: J0696 12/17/2017 THER/PROPH/DIAG INJ SC/IM CPT-4: 20682 12/17/2017 THER/PROPH/DIAG INJ SC/IM CPT-4: 67011 12/17/2017 TRIAMCINOLONE ACET INJ NOS CPT-4: J3301 12/17/2017 PRESCRIP TRANSMIT VIA ERX SY CPT-4: G8553 12/17/2017 DRAIN/INJECT JOINT/BURSA CPT-4: 72648 12/11/2017 TRIAMCINOLONE ACET INJ NOS CPT-4: J3301 12/11/2017 DEXAMETHASONE SODIUM PHOS CPT-4: J1100 12/11/2017 DESTRUCT PREMALG LESION (Cryosurgery) CPT-4: 89230 PRESCRIP TRANSMIT VIA ERX SY CPT-4: G8553 10/17/2017 DEXAMETHASONE SODIUM PHOS CPT-4: J1100 08/02/2017 THER/PROPH/DIAG INJ SC/IM CPT-4: 69866 08/02/2017 TRIAMCINOLONE ACET INJ NOS CPT-4: J3301 08/02/2017 PRESCRIP TRANSMIT VIA ERX SY CPT-4: G8553 08/02/2017 PNEUMOCOCCAL VACC 23 OLIVIA IM CPT-4: 51605 07/24/2017 ADMIN PNEUMOCOCCAL VACCINE CPT-4: G0009 07/24/2017 ALBUTEROL NON-COMP UNIT CPT-4: J7613 07/02/2017 AIRWAY INHALATION TREATMENT CPT-4: 31798 07/02/2017 THER/PROPH/DIAG INJ SC/IM CPT-4: 98849 07/02/2017 METHYLPREDNISOLONE INJECTION CPT-4: J2930 07/02/2017 PRESCRIP TRANSMIT VIA ERX SY CPT-4: G8553 05/29/2017 ROUTINE VENIPUNCTURE CPT-4: 52832 04/17/2017 ASSAY OF IRON CPT-4: 35214 04/17/2017 VITAMIN B-12 CPT-4: 51339 04/17/2017 COMPREHEN METABOLIC PANEL CPT-4: 29100 04/17/2017 COMPLETE CBC W/AUTO DIFF WBC CPT-4: 56390 04/17/2017 ASSAY OF FERRITIN CPT-4: 66716 04/17/2017 ASSAY THYROID STIM HORMONE CPT-4: 22763 04/17/2017 A1C HPLC CPT-4: 35893 04/17/2017 DRAIN/INJECT JOINT/BURSA CPT-4: 74970 02/01/2017 TRIAMCINOLONE ACET INJ NOS CPT-4: J3301 02/01/2017 DEXAMETHASONE SODIUM PHOS CPT-4: J1100 02/01/2017 ROUTINE VENIPUNCTURE CPT-4: 47669 12/27/2016 COMPLETE CBC W/AUTO DIFF WBC CPT-4: 72865 12/27/2016 ROUTINE VENIPUNCTURE CPT-4: 73791 12/21/2016 COMPLETE CBC W/AUTO DIFF WBC CPT-4: 81524 12/21/2016 ROUTINE VENIPUNCTURE CPT-4: 02326 12/12/2016 COMPLETE CBC W/AUTO DIFF WBC CPT-4: 15251 12/12/2016 PRESCRIP TRANSMIT VIA ERX SY CPT-4: G8553 10/31/2016 PRESCRIP TRANSMIT VIA ERX SY CPT-4: G8553 10/03/2016 PRESCRIP TRANSMIT VIA ERX SY CPT-4: G8553 09/04/2016 DESTRUCT PREMALG LESION (Cryosurgery) CPT-4: 02669 DESTRUCT PREMALG LES 2-14 CPT-4: 98048 08/22/2016 PRESCRIP TRANSMIT VIA ERX SY CPT-4: G8553 08/10/2016 PRESCRIP TRANSMIT VIA ERX SY CPT-4: G8553 07/06/2016 FLU VACC PRSV FREE INC ANTIG 65 AND OLDER CPT-4: 87555 06/13/2016 PNEUMOCOCCAL VACC 13 OLIVIA IM CPT-4: 28751 06/13/2016 ADMIN INFLUENZA VIRUS VAC CPT-4: G0008 06/13/2016 ADMIN PNEUMOCOCCAL VACCINE CPT-4: G0009 06/13/2016 CERUM REMOVAL CPT-4: 01444 04/05/2016 PRESCRIP TRANSMIT VIA ERX SY CPT-4: G8553 04/03/2016 ROUTINE VENIPUNCTURE CPT-4: 50318 03/06/2016 ASSAY OF FREE THYROXINE CPT-4: 18242 03/06/2016 ASSAY THYROID STIM HORMONE CPT-4: 00713 03/06/2016 COMPREHEN METABOLIC PANEL CPT-4: 04496 03/06/2016 COMPLETE CBC W/AUTO DIFF WBC CPT-4: 29852 03/06/2016 LIPID PANEL CPT-4: 25120 03/06/2016 ASSAY OF PSA TOTAL CPT-4: 56693 03/06/2016 TESTOSTERONE TOTAL - MALE CPT-4: 28415 03/06/2016 A1C HPLC CPT-4: 16833 03/06/2016 ASSAY OF IRON CPT-4: 78463 03/06/2016 VITAMIN B-12 CPT-4: 45348 03/06/2016 INJ TENDON SHEATH/LIGAMENT CPT-4: 27401 02/17/2016 TRIAMCINOLONE ACET INJ NOS CPT-4: J3301 02/17/2016 DEXAMETHASONE SODIUM PHOS CPT-4: J1100 02/17/2016 PRESCRIP TRANSMIT VIA ERX SY CPT-4: G8553 01/31/2016 PRESCRIP TRANSMIT VIA ERX SY CPT-4: G8553 12/30/2015 PRESCRIP TRANSMIT VIA ERX SY CPT-4: G8553 12/06/2015 PRESCRIP TRANSMIT VIA ERX SY CPT-4: G8553 11/15/2015 PPPS, subseq visit CPT-4: G0439 10/05/2015 MICROALBUMIN QUANTITATIVE CPT-4: 83355 10/05/2015 PROTEIN/CREAT URINE WITH RATIO CPT-4: 10562|26727 6 ROUTINE VENIPUNCTURE CPT-4: 20584 07/01/2015 ASSAY OF FREE THYROXINE CPT-4: 70839 07/01/2015 ASSAY THYROID STIM HORMONE CPT-4: 06720 07/01/2015 COMPLETE CBC W/AUTO DIFF WBC CPT-4: 40660 07/01/2015 LIPID PANEL CPT-4: 73107 07/01/2015 ASSAY OF PSA TOTAL CPT-4: 32511 07/01/2015 AEROBIC WOUND CULTURE & STN CPT-4: 49376 06/28/2015 PRESCRIP TRANSMIT VIA ERX SY CPT-4: G8553 06/28/2015 AEROBIC WOUND CULTURE & STN CPT-4: 13300 06/03/2015 PRESCRIP TRANSMIT VIA ERX SY CPT-4: G8553 06/03/2015 ROUTINE VENIPUNCTURE CPT-4: 19922 06/01/2015 COMPREHEN METABOLIC PANEL CPT-4: 78088 06/01/2015 A1C HPLC CPT-4: 92204 06/01/2015 COMPREHEN METABOLIC PANEL CPT-4: 32737 02/25/2015 A1C HPLC CPT-4: 15172 02/25/2015 DESTRUCT PREMALG LESION (Cryosurgery) CPT-4: 22101 PROTEIN/CREAT URINE WITH RATIO CPT-4: 38533|14485 5 MICROALBUMIN QUANTITATIVE CPT-4: 22007 10/27/2014 INFLUENZA ASSAY W/OPTIC CPT-4: 61239 10/21/2014 PRESCRIP TRANSMIT VIA ERX SY CPT-4: G8553 10/06/2014 PRESCRIP TRANSMIT VIA ERX SY CPT-4: G8553 09/21/2014 PRESCRIP TRANSMIT VIA ERX SY CPT-4: G8553 09/02/2014 MICROALBUMIN QUANTITATIVE CPT-4: 32087 08/27/2014 PROTEIN/CREAT URINE WITH RATIO CPT-4: 66903|43073 4 PPPS, subseq visit CPT-4: G0439 08/10/2014 ROUTINE VENIPUNCTURE CPT-4: 99522 08/05/2014 ASSAY OF FREE THYROXINE CPT-4: 63320 08/05/2014 ASSAY THYROID STIM HORMONE CPT-4: 10416 08/05/2014 COMPREHEN METABOLIC PANEL CPT-4: 38626 08/05/2014 COMPLETE CBC W/AUTO DIFF WBC CPT-4: 60360 08/05/2014 LIPID PANEL CPT-4: 01328 08/05/2014 A1C HPLC CPT-4: 65896 08/05/2014 FLUZONE, 5ML (Medicare) CPT-4: Q2038 08/05/2014 ADMIN INFLUENZA VIRUS VAC CPT-4: G0008 08/05/2014 METHYLPREDNISOLONE 40 MG INJ CPT-4: J1030 12/16/2013 TRIAMCINOLONE ACET INJ NOS CPT-4: J3301 12/16/2013 DRAIN/INJECT JOINT/BURSA CPT-4: 51160 12/16/2013 PRESCRIP TRANSMIT VIA ERX SY CPT-4: G8553 10/09/2013 THER/PROPH/DIAG INJ SC/IM CPT-4: 59486 09/18/2013 METHYLPREDNISOLONE 40 MG INJ CPT-4: J1030 09/18/2013 TRIAMCINOLONE ACET INJ NOS CPT-4: J3301 09/18/2013 PRESCRIP TRANSMIT VIA ERX SY CPT-4: G8553 09/18/2013 PRESCRIP TRANSMIT VIA ERX SY CPT-4: G8553 08/13/2013 ROUTINE VENIPUNCTURE CPT-4: 65563 06/25/2013 ASSAY OF FREE THYROXINE CPT-4: 92237 06/25/2013 ASSAY THYROID STIM HORMONE CPT-4: 88118 06/25/2013 COMPREHEN METABOLIC PANEL CPT-4: 76978 06/25/2013 COMPLETE CBC W/AUTO DIFF WBC CPT-4: 46842 06/25/2013 LIPID PANEL CPT-4: 13963 06/25/2013 A1C GLYCOSYLATED HEMOGLOBIN TEST CPT-4: 00306 013 ROUTINE VENIPUNCTURE CPT-4: 15540 04/09/2013 COMPLETE CBC W/AUTO DIFF WBC CPT-4: 51053 04/09/2013 MYCOPLASMA ANTIBODY, IFA CPT-4: 20188V7 04/09/2013 ROUTINE VENIPUNCTURE CPT-4: 89185 02/11/2013 ASSAY OF FREE THYROXINE CPT-4: 19536 02/11/2013 ASSAY THYROID STIM HORMONE CPT-4: 92691 02/11/2013 COMPREHEN METABOLIC PANEL CPT-4: 49241 02/11/2013 COMPLETE CBC W/AUTO DIFF WBC CPT-4: 60472 02/11/2013 VITAMIN B 12 FOLIC ACID CPT-4: 47777|62895 02/11/2013 C-REACTIVE PROTEIN CPT-4: 49794 02/11/2013 A1C GLYCOSYLATED HEMOGLOBIN TEST CPT-4: 94888 013 ASSAY OF BLOOD/URIC ACID CPT-4: 89263 02/11/2013 CEFTRIAXONE SODIUM INJECTION CPT-4: J0696 01/31/2013 THER/PROPH/DIAG INJ SC/IM CPT-4: 60752 01/31/2013 THER/PROPH/DIAG INJ SC/IM CPT-4: 36631 01/31/2013 METHYLPREDNISOLONE 40 MG INJ CPT-4: J1030 01/31/2013 TRIAMCINOLONE ACET INJ NOS CPT-4: J3301 01/31/2013 ROUTINE VENIPUNCTURE CPT-4: 90571 09/19/2012 COMPREHEN METABOLIC PANEL CPT-4: 16357 09/19/2012 LIPID PANEL CPT-4: 03380 09/19/2012 A1C GLYCOSYLATED HEMOGLOBIN TEST CPT-4: 08287 012 PNEUMOCOCCAL VACC 23 OLIVIA IM CPT-4: 17554 07/10/2012 FLUZONE, 5ML (Medicare) CPT-4: Q2038 07/10/2012 ADMIN INFLUENZA VIRUS VAC CPT-4: G0008 07/10/2012 ADMIN PNEUMOCOCCAL VACCINE CPT-4: G0009 07/10/2012 ROUTINE VENIPUNCTURE CPT-4: 90143 05/06/2012 ASSAY OF FREE THYROXINE CPT-4: 63989 05/06/2012 ASSAY THYROID STIM HORMONE CPT-4: 23873 05/06/2012 COMPREHEN METABOLIC PANEL CPT-4: 78989 05/06/2012 COMPLETE CBC W/AUTO DIFF WBC CPT-4: 34592 05/06/2012 LIPID PANEL CPT-4: 99109 05/06/2012 A1C GLYCOSYLATED HEMOGLOBIN TEST CPT-4: 80558 012 IMMUNIZATION ADMIN CPT-4: 85886 02/05/2012 FLUZONE, 5ML (Medicare) CPT-4: Q2038 08/10/2011 ADMIN INFLUENZA VIRUS VAC CPT-4: G0008 08/10/2011 ROUTINE VENIPUNCTURE CPT-4: 13744 07/26/2011 ASSAY OF FREE THYROXINE CPT-4: 65679 07/26/2011 ASSAY THYROID STIM HORMONE CPT-4: 03481 07/26/2011 COMPREHEN METABOLIC PANEL CPT-4: 74465 07/26/2011 COMPLETE CBC W/AUTO DIFF WBC CPT-4: 19215 07/26/2011 LIPID PANEL CPT-4: 41081 07/26/2011 A1C GLYCOSYLATED HEMOGLOBIN TEST CPT-4: 72869 011 ASSAY OF PSA TOTAL CPT-4: 18777 07/26/2011 ROUTINE VENIPUNCTURE CPT-4: 82791 01/19/2011 ASSAY OF NATRIURETIC PEPTIDE CPT-4: 81387 01/19/2011 THER/PROPH/DIAG INJ SC/IM CPT-4: 00375 01/19/2011 CEFTRIAXONE SODIUM INJECTION CPT-4: J0696 01/19/2011 METHYLPREDNISOLONE INJECTION CPT-4: J2930 01/19/2011 THER/PROPH/DIAG INJ SC/IM CPT-4: 01/19/2011 THER/PROPH/DIAG INJ SC/IM CPT-4: 33473 01/18/2011 CEFTRIAXONE SODIUM INJECTION CPT-4: J0696 01/18/2011 METHYLPREDNISOLONE INJECTION CPT-4: J2930 01/18/2011 THER/PROPH/DIAG INJ SC/IM CPT-4: 39689 01/18/2011 THER/PROPH/DIAG INJ SC/IM CPT-4: 79853 12/21/2010 TESTOSTERONE CYPIONAT 100 MG CPT-4: J1070 12/21/2010 ROUTINE VENIPUNCTURE CPT-4: 20692 12/19/2010 TESTOSTERONE TOTAL - MALE CPT-4: 22526 12/19/2010 ROUTINE VENIPUNCTURE CPT-4: 16065 12/07/2010 COMPLETE CBC W/AUTO DIFF WBC CPT-4: 58491 12/07/2010 COMPREHEN METABOLIC PANEL CPT-4: 35425 12/07/2010 LIPID PANEL CPT-4: 56802 12/07/2010 A1C GLYCOSYLATED HEMOGLOBIN TEST CPT-4: 15570 011 ASSAY OF PSA TOTAL CPT-4: 60296 12/07/2010 ROUTINE VENIPUNCTURE CPT-4: 25305 04/05/2010 PRESCRIP TRANSMIT VIA ERX SY CPT-4: G8553 04/05/2010 ROUTINE VENIPUNCTURE CPT-4: 08201 01/13/2010 METHYLPREDNISOLONE INJECTION CPT-4: J2930 12/22/2009 THER/PROPH/DIAG INJ SC/IM CPT-4: 00426 12/22/2009 THER/PROPH/DIAG INJ SC/IM CPT-4: 01432 12/22/2009 CEFTRIAXONE SODIUM INJECTION CPT-4: J0696 12/22/2009 ROUTINE VENIPUNCTURE CPT-4: 03498 12/22/2009 COMPLETE CBC W/AUTO DIFF WBC CPT-4: 94113 12/22/2009 RBC SED RATE, AUTOMATED CPT-4: 07491 12/22/2009 RPR FE/E/EN/L/M 20.1-30.0 CM CPT-4: 71775 12/22/2009 EKG FOR INITIAL PREVENT EXAM CPT-4: G0403 12/22/2009 THER/PROPH/DIAG INJ SC/IM CPT-4: 05235 12/16/2009 KETOROLAC TROMETHAMINE INJ CPT-4: J1885 12/16/2009 [...] 1: 126/68 Code: 8480-6 BMI: 30.2 Code: 12903-2 Heart Rate 1: 92 bpm Height: 6' Respiratory Rate: 22 bpm SpO2: 94% Tempera ture: 36.9 (C) / 98.5 (F) Weight: 223 lbs 08/21/2018 Blood Pressure 1: 160/70 Code: 8480-6 Heart Rate 1: 79 bpm Respiratory Rate: 20 bpm SpO2: 94% Temperature: 36.7 (C) / 98.0 (F) We ight: 226 lbs 8 oz 08/07/2018 Blood Pressure 1: 138/70 Code: 8480-6 BMI: 30.1 Code: 59984-1 Heart Rate 1: 80 bpm Height: 6' Respiratory Rate: 20 bpm SpO2: 94% Tempera ture: 36.9 (C) / 98.5 (F) Weight: 222 lbs 05/23/2018 Blood Pressure 1: 148/66 Code: 8480-6 BMI: 30.0 Code: 42335-7 Heart Rate 1: 96 bpm Height: 6' Respiratory Rate: 22 bpm SpO2: 94% Tempera ture: 37.3 (C) / 99.1 (F) Weight: 221 lbs 05/02/2018 Blood Pressure 1: 146/78 Code: 8480-6 BMI: 29.6 Code: 31181-4 Heart Rate 1: 78 bpm Height: 6' Respiratory Rate: 26 bpm SpO2: 94% Tempera ture: 35.7 (C) / 96.2 (F) Weight: 218 lbs 04/29/2018 Blood Pressure 1: 142/62 Code: 8480-6 BMI: 28.6 Code: 47625-6 Heart Rate 1: 82 bpm Height: 6' Respiratory Rate: 22 bpm SpO2: 98% Tempera ture: 36.4 (C) / 97.6 (F) Weight: 211 lbs 04/22/2018 Blood Pressure 1: 126/64 Code: 8480-6 BMI: 30.0 Code: 85291-9 Heart Rate 1: 96 bpm Height: 6' [...] 1: 144/78 Code: 8480-6 BMI: 30.7 Code: 69322-3 Heart Rate 1: 92 bpm Height: 6' Respiratory Rate: 28 bpm SpO2: 94% Tempera ture: 36.9 (C) / 98.4 (F) Weight: 226 lbs 12/28/2017 Blood Pressure 1: 136/80 Code: 8480-6 Heart Rate 1: 92 bpm Respiratory Rate: 28 bpm SpO2: 94% Temperature: 36.7 (C) / 98.1 (F) 12/21/2017 Blood Pressure 1: 146/84 Code: 8480-6 BMI: 31.1 Code: 48147-7 Heart Rate 1: 84 bpm Height: 6' [...] 1: 142/64 Code: 8480-6 BMI: 31.3 Code: 05437-2 Heart Rate 1: 98 bpm Height: 6' Respiratory Rate: 24 bpm SpO2: 94% Tempera ture: 36.4 (C) / 97.6 (F) Weight: 231 lbs 10/17/2017 Blood Pressure 1: 140/68 Code: 8480-6 BMI: 31.7 Code: 48533-0 Heart Rate 1: 88 bpm Height: 6' Respiratory Rate: 20 bpm SpO2: 94% Tempera ture: 36.8 (C) / 98.3 (F) Weight: 234 lbs 08/02/2017 Blood Pressure 1: 142/80 Code: 8480-6 BMI: 31.1 Code: 76807-3 Heart Rate 1: 86 bpm Height: 6' Respiratory Rate: 20 bpm SpO2: 90% Tempera ture: 35.9 (C) / 96.7 (F) Weight: 229 lbs 07/02/2017 Blood Pressure 1: 146/64 Code: 8480-6 BMI: 29.6 Code: 68069-0 Heart Rate 1: 96 bpm Height: 6' Respiratory Rate: 20 bpm Temperature: 36 .4 (C) / 97.6 (F) Weight: 218 lbs 05/29/2017 Blood Pressure 1: 152/68 Code: 8480-6 BMI: 31.5 Code: 91712-7 Heart Rate 1: 100 bpm Height: 6' Respiratory Rate: 20 bpm SpO2: 92% Tempera ture: 36.9 (C) / 98.4 (F) Weight: 232 lbs 02/01/2017 Blood Pressure 1: 146/64 Code: 8480-6 BMI: 30.7 Code: 17620-1 Heart Rate 1: 76 bpm Height: 6' Respiratory Rate: 20 bpm SpO2: 95% Tempera ture: 36.8 (C) / 98.2 (F) Weight: 226 lbs 01/29/2017 Blood Pressure 1: 146/78 Code: 8480-6 Heart Rate 1: 84 bpm Respiratory Rate: 20 bpm SpO2: 96% Temperature: 36.1 (C) / 97.0 (F) We ight: 226 lbs 12/21/2016 Blood Pressure 1: 126/60 Code: 8480-6 BMI: 30.8 Code: 37949-3 Heart Rate 1: 88 bpm Height: 6' Respiratory Rate: 22 bpm SpO2: 94% Tempera ture: 36.7 (C) / 98.0 (F) Weight: 227 lbs 12/14/2016 Blood Pressure 1: 126/70 Code: 8480-6 BMI: 29.8 Code: 76203-2 Heart Rate 1: 92 bpm Height: 6' Respiratory Rate: 22 bpm SpO2: 93% Tempera ture: 36.8 (C) / 98.2 (F) Weight: 220 lbs 11/14/2016 Blood Pressure 1: 128/62 Code: 8480-6 Heart Rate 1: 100 bpm Respiratory Rate: 20 bpm SpO2: 96% Temperature: 36.6 (C) / 97.8 (F) We ight: 220 lbs 10/31/2016 Blood Pressure 1: 142/60 Code: 8480-6 BMI: 30.1 Code: 94698-6 Heart Rate 1: 112 bpm Height: 6' Respiratory Rate: 24 bpm SpO2: 93% Tempera ture: 37.1 (C) / 98.7 (F) Weight: 222 lbs 10/03/2016 Blood Pressure 1: 136/78 Code: 8480-6 Heart Rate 1: 106 bpm Respiratory Rate: 24 bpm SpO2: 93% Temperature: 36.6 (C) / 97.8 (F) We ight: 221 lbs 09/04/2016 Blood Pressure 1: 112/44 Code: 8480-6 BMI: 30.1 Code: 59432-1 Heart Rate 1: 90 bpm Height: 6' Respiratory Rate: 20 bpm SpO2: 93% Tempera ture: 36.6 (C) / 97.9 (F) Weight: 222 lbs 08/22/2016 Blood Pressure 1: 142/68 Code: 8480-6 BMI: 30.4 Code: 11312-2 Heart Rate 1: 100 bpm Height: 6' Respiratory Rate: 24 bpm SpO2: 93% Tempera ture: 36.7 (C) / 98.1 (F) Weight: 224 lbs 08/10/2016 Blood Pressure 1: 134/60 Code: 8480-6 BMI: 30.2 Code: 19123-1 Heart Rate 1: 76 bpm Height: 6' [...] 1: 122/72 Code: 8480-6 BMI: 30.7 Code: 87678-9 Heart Rate 1: 96 bpm Height: 6' Respiratory Rate: 22 bpm SpO2: 96% Tempera ture: 35.9 (C) / 96.7 (F) Weight: 226 lbs 04/03/2016 Blood Pressure 1: 146/64 Code: 8480-6 BMI: 30.8 Code: 82388-9 Heart Rate 1: 76 bpm Height: 6' Respiratory Rate: 20 bpm Temperature: 36 .8 (C) / 98.2 (F) Weight: 227 lbs 03/02/2016 Blood Pressure 1: 148/60 Code: 8480-6 BMI: 31.1 Code: 04934-3 Heart Rate 1: 80 bpm Height: 6' Respiratory Rate: 22 bpm SpO2: 94% Tempera ture: 36.6 (C) / 97.8 (F) Weight: 229 lbs 02/17/2016 Blood Pressure 1: 132/60 Code: 8480-6 BMI: 31.3 Code: 70768-5 Heart Rate 1: 80 bpm Height: 6' Respiratory Rate: 20 bpm Temperature: 36 .9 (C) / 98.4 (F) Weight: 231 lbs 02/14/2016 Blood Pressure 1: 126/70 Code: 8480-6 BMI: 31.3 Code: 42116-2 Heart Rate 1: 80 bpm Height: 6' Respiratory Rate: 24 bpm SpO2: 95% Tempera ture: 36.9 (C) / 98.5 (F) Weight: 231 lbs 01/31/2016 Blood Pressure 1: 136/60 Code: 8480-6 Heart Rate 1: 76 bpm Respiratory Rate: 22 bpm Temperature: 37.0 (C) / 98.6 (F) Weight: 230 lbs 12/30/2015 Blood Pressure 1: 128/58 Code: 8480-6 BMI: 31.2 Code: 71017-4 Heart Rate 1: 80 bpm Height: 6' Respiratory Rate: 20 bpm Temperature: 36 .8 (C) / 98.2 (F) Weight: 230 lbs 12/16/2015 Blood Pressure 1: 122/60 Code: 8480-6 BMI: 32.0 Code: 53688-8 Heart Rate 1: 84 bpm Height: 6' Respiratory Rate: 24 bpm Temperature: 37 .1 (C) / 98.7 (F) Weight: 236 lbs 12/06/2015 Blood Pressure 1: 162/74 Code: 8480-6 BMI: 32.5 Code: 80006-9 Heart Rate 1: 90 bpm Height: 6' Respiratory Rate: 20 bpm SpO2: 96% Tempera ture: 36.4 (C) / 97.6 (F) Weight: 240 lbs 11/15/2015 Blood Pressure 1: 166/80 Code: 8480-6 BMI: 32.4 Code: 66712-0 Heart Rate 1: 92 bpm Height: 6' Respiratory Rate: 28 bpm Temperature: 36 .5 (C) / 97.7 (F) Weight: 239 lbs 10/05/2015 Blood Pressure 1: 146/76 Code: 8480-6 BMI: 32.4 Code: 48208-1 Heart Rate 1: 88 bpm Height: 6' Respiratory Rate: 28 bpm Temperature: 37 .1 (C) / 98.7 (F) Weight: 239 lbs 07/22/2015 Blood Pressure 1: 144/68 Code: 8480-6 BMI: 31.9 Code: 34674-6 Heart Rate 1: 88 bpm Height: 6' [...] 1: 142/64 Code: 8480-6 BMI: 32.1 Code: 35836-9 Heart Rate 1: 80 bpm Height: 6' Respiratory Rate: 18 bpm Temperature: 36 .4 (C) / 97.6 (F) Weight: 237 lbs 06/07/2015 Blood Pressure 1: 164/58 Code: 8480-6 BMI: 32.1 Code: 12106-9 Heart Rate 1: 88 bpm Height: 6' Respiratory Rate: 20 bpm Temperature: 36 .6 (C) / 97.9 (F) Weight: 237 lbs 06/03/2015 Blood Pressure 1: 152/64 Code: 8480-6 BMI: 32.1 Code: 29967-1 Heart Rate 1: 96 bpm Height: 6' Respiratory Rate: 20 bpm Temperature: 37 .4 (C) / 99.3 (F) Weight: 237 lbs 06/01/2015 Blood Pressure 1: 136/70 Code: 8480-6 BMI: 31.7 Code: 83400-2 Heart Rate 1: 72 bpm Height: 6' Respiratory Rate: 22 bpm SpO2: 94% Tempera ture: 36.6 (C) / 97.9 (F) Weight: 234 lbs 02/25/2015 Blood Pressure 1: 146/80 Code: 8480-6 BMI: 32.4 Code: 07913-9 Heart Rate 1: 84 bpm Height: 6' Respiratory Rate: 28 bpm Temperature: 36 .7 (C) / 98.0 (F) Weight: 239 lbs 10/27/2014 Blood Pressure 1: 168/70 Code: 8480-6 BMI: 32.0 Code: 67001-6 Heart Rate 1: 80 bpm Height: 6' Respiratory Rate: 30 bpm SpO2: 98% Tempera ture: 36.4 (C) / 97.6 (F) Weight: 236 lbs 10/21/2014 Blood Pressure 1: 152/58 Code: 8480-6 BMI: 32.1 Code: 63716-3 Heart Rate 1: 78 bpm Height: 6' Respiratory Rate: 20 bpm Temperature: 37 .8 (C) / 100.1 (F) Weight: 237 lbs 10/06/2014 Blood Pressure 1: 132/64 Code: 8480-6 BMI: 32.5 Code: 64334-7 Heart Rate 1: 88 bpm Height: 6' Respiratory Rate: 32 bpm SpO2: 94% Tempera ture: 36.8 (C) / 98.2 (F) Weight: 240 lbs 09/21/2014 Blood Pressure 1: 134/68 Code: 8480-6 BMI: 32.4 Code: 93083-1 Heart Rate 1: 96 bpm Height: 6' Respiratory Rate: 30 bpm Temperature: 36 .7 (C) / 98.1 (F) Weight: 239 lbs 09/08/2014 Blood Pressure 1: 128/74 Code: 8480-6 BMI: 32.4 Code: 43355-8 Heart Rate 1: 82 bpm Height: 6' Respiratory Rate: 28 bpm SpO2: 93% Tempera ture: 36.6 (C) / 97.8 (F) Weight: 239 lbs 09/02/2014 Blood Pressure 1: 164/78 Code: 8480-6 Heart Rate 1: 86 bpm Respiratory Rate: 22 bpm SpO2: 96% Temperature: 36.1 (C) / 97.0 (F) We ight: 239 lbs 08/10/2014 Blood Pressure 1: 152/60 Code: 8480-6 BMI: 32.8 Code: 44812-0 Heart Rate 1: 80 bpm Height: 6' [...] 1: 146/80 Code: 8480-6 BMI: 33.9 Code: 28660-1 Heart Rate 1: 80 bpm Height: 6' [...] 1: 148/78 Code: 8480-6 BMI: 30.5 Code: 78299-6 Heart Rate 1: 84 bpm Height: 6' Respiratory Rate: 28 bpm SpO2: 97% Tempera ture: 36.4 (C) / 97.5 (F) Weight: 225 lbs 08/06/2013 Blood Pressure 1: 158/70 Code: 8480-6 Heart Rate 1: 110 bpm Respiratory Rate: 22 bpm SpO2: 88% Temperature: 39.7 (C) / 103.4 (F) W eight: 07/16/2013 Blood Pressure 1: 148/82 Code: 8480-6 BMI: 31.9 Code: 39227-1 Heart Rate 1: 80 bpm Height: 6' Respiratory Rate: 20 bpm Temperature: 36 .6 (C) / 97.9 (F) Weight: 235 lbs 04/09/2013 Blood Pressure 1: 142/78 Code: 8480-6 BMI: 31.5 Code: 85615-3 Heart Rate 1: 88 bpm Height: 6' Respiratory Rate: 32 bpm SpO2: 95% Tempera ture: 37.0 (C) / 98.6 (F) Weight: 232 lbs 02/11/2013 Blood Pressure 1: 146/70 Code: 8480-6 Heart Rate 1: 88 bpm Respiratory Rate: 20 bpm Temperature: 36.8 (C) / 98.3 (F) Weight: 230 lbs 01/31/2013 Blood Pressure 1: 128/70 Code: 8480-6 BMI: 31.6 Code: 75548-2 Heart Rate 1: 84 bpm Height: 6' Respiratory Rate: 24 bpm SpO2: 92% Tempera ture: 36.7 (C) / 98.0 (F) Weight: 233 lbs 01/20/2013 Blood Pressure 1: 148/64 Code: 8480-6 BMI: 31.6 Code: 16671-7 Heart Rate 1: 68 bpm Height: 6' Temperature: 36.1 (C) / 97.0 (F) Weight: 233 lbs 12/19/2012 Blood Pressure 1: 128/68 Code: 8480-6 BMI: 32.0 Code: 07498-1 Heart Rate 1: 64 bpm Height: 6' Temperature: 36.7 (C) / 98.0 (F) Weight: 236 lbs 10/21/2012 Blood Pressure 1: 142/64 Code: 8480-6 BMI: 30.9 Code: 87253-6 Heart Rate 1: 74 bpm Height: 6' Temperature: 36.2 (C) / 97.1 (F) Weight: 228 lbs 09/18/2012 Blood Pressure 1: 126/60 Code: 8480-6 BMI: 31.3 Code: 18339-6 Heart Rate 1: 88 bpm Height: 6' Respiratory Rate: 20 bpm Temperature: 36 .5 (C) / 97.7 (F) Weight: 231 lbs 08/28/2012 Blood Pressure 1: 132/68 Code: 8480-6 BMI: 31.5 Code: 81273-7 Heart Rate 1: 92 bpm Height: 6' Respiratory Rate: 30 bpm SpO2: 94% Tempera ture: 37.1 (C) / 98.7 (F) Weight: 232 lbs 07/10/2012 Blood Pressure 1: 118/70 Code: 8480-6 BMI: 30.5 Code: 18147-6 Heart Rate 1: 72 bpm Height: 6' Respiratory Rate: 24 bpm SpO2: 96% Tempera ture: 36.7 (C) / 98.0 (F) Weight: 225 lbs 05/09/2012 Blood Pressure 1: 124/68 Code: 8480-6 BMI: 29.8 Code: 61894-9 Heart Rate 1: 72 bpm Height: 6' Respiratory Rate: 20 bpm Temperature: 36 .8 (C) / 98.2 (F) Weight: 220 lbs 10/02/2011 Blood Pressure 1: 140/82 Code: 8480-6 BMI: 30.7 Code: 66448-1 Heart Rate 1: 68 bpm Height: 6' Temperature: 36.7 (C) / 98.0 (F) Weight: 226 lbs 08/07/2011 Blood Pressure 1: 122/68 Code: 8480-6 BMI: 30.5 Code: 77534-5 Heart Rate 1: 72 bpm Height: 6' [...] 1: 140/78 Code: 8480-6 BMI: 31.9 Code: 34527-6 Heart Rate 1: 84 bpm Height: 6' Temperature: 36.6 (C) / 97.8 (F) Weight: 235 lbs 12/22/2009 Blood Pressure 1: 140/74 Code: 8480-6 BMI: 31.9 Code: 32627-8 Heart Rate 1: 94 bpm Height: 6' SpO2: 92% Temperature: 35.7 (C) / 96.2 (F) Weight: 235 lbs 12/13/2009 Blood Pressure 1: 146/80 Code: 8480-6 BMI: 33.0 Code: 61265-8 Heart Rate 1: 86 bpm Height: 6' Temperature: 36.5 (C) / 97.7 (F) Weight: 243 lbs Functional Status No Functional Status data Reason For Visit Reason For Visit Effective Dates Notes fatigue 11/12/2019 follow up 09/11/2019 cough 08/07/2019 cough 07/14/2019 follow up 07/01/2019 vomiting 06/24/2019 follow up 06/17/2019 right knee pain injection(s) 06/10/2019 b12 shot injection(s) 06/02/2019 injection(s) 05/27/2019 injection(s) 05/12/2019 B12 shot follow up 05/08/2019 follow up 04/07/2019 [facility] dizziness 03/24/2019 dizziness 03/21/2019 sore throat 03/13/2019 Patient finished zit hromax last night and has one dose of prednisone left follow up 03/10/2019 [facility]---patient cu rrently taking zithromax, prednisone and breathing treatments every two hours spasms/spasticity 02/26/2019 follow up 02/13/2019 follow up 01/14/2019 [facility] follow up 12/25/2018 cough 12/09/2018 here [...] constantly with her. 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 follow up 05/29/2017 Discuss Low Back [...] nightly. Patient has just been discharged from [place] with Pneumonia. Currently on Levaquin once daily. [...] would like evaluated follow up 06/13/2016 Hospital [facility] COPD w/exac 06/01/2016 Patient states chest tightness, shortness of breath, and fatigue have worsened in the last 2-3 weeks with exertion. otalgia 04/26/2016 cerumen 04/05/2016 Patient has been maximiliano ing ear drops follow up 04/03/2016 2mo fwup follow up 03/13/2016 Patient here for [facility] on medication education for insulin use lab [...] 02/25/2015 3mo fwup follow up 10/27/2014 Hospital [facility] cough 10/21/2014 follow up 10/06/2014 follow up 09/21/2014 [facility] follow up 09/08/2014 [facility] cough 09/02/2014 well man exam (65+ years) 08/10/2014 lab draw 08/05/2014 flu shot follow up 05/05/2014 6wk fwup follow up 03/24/2014 2wk [facility] shortness of breath 03/10/2014 shoulder pain 12/16/2013 Request back brace w hen working/lifting---chiropractor had recommended he get one to wear shortness of breath 10/09/2013 cough 09/18/2013 follow up 08/13/2013 [facility] cough 08/06/2013 follow up 07/16/2013 lab draw [...] 12/13/2009 Encounters Encounter Performer Location Codes Date ([id number]) OFFICE/OUTPATIENT VISIT EST Diagnosis: Chronic respiratory failure with hypercapnia[ICD10: J96.12] Diagnosis: Chronic airway obstruction, not elsewhere classified[ICD10: J44.9] Diagnosis: Basal cell carcinoma, face[ICD10: C44.310] Lita [employer] CPT-4: 74483 11/12/2019 ([id number]) OFFICE/OUTPATIENT VISIT EST Diagnosis: Chronic obstructive pulmonary disease, unspecified[ICD10: J44.9] Diagnosis: Right thyroid nodule[ICD10: E04.1] Lita [employer] CPT-4: 94718 09/11/2019 ([id number]) OFFICE/OUTPATIENT VISIT EST Diagnosis: Chronic bronchitis[ICD10: J42] 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] Diagnosis: FLU VACCINE[ICD10: Z23] Lita Ramirez [employer] CPT-4: 77438 08/07/2019 ([id number]) OFFICE/OUTPATIENT VISIT EST Diagnosis: Chronic obstructive pulmonary disease with (acute) exacerbation[ICD10: J44.1] Autumn BARAKAT DO [facility] CPT- 4: 44251 07/14/2019 ([id number]) OFFICE/OUTPATIENT VISIT EST Diagnosis: Primary insomnia[ICD10: F51.01] Diagnosis: Dyspepsia and other specified disorders of function of stomach[ICD10: K31.89] Lita BARAKAT DO [facility] CPT-4: 98963 07/01/2019 ([id number]) OFFICE/OUTPATIENT VISIT EST Diagnosis: Epigastric pain[ICD10: R10.13] Diagnosis: Nausea[ICD10: R11.0] Diagnosis: Weight loss[ICD10: R63.4] Lita AREVALO [facility] CPT-4: 38136 06/24/2019 ([id number]) OFFICE/OUTPATIENT VISIT EST Diagnosis: Chronic obstructive pulmonary disease, unspecified[ICD10: J44.9] Diagnosis: Chronic insomnia[ICD10: F51.04] Diagnosis: Anemia[ICD10: D64.9] Diagnosis: Diplopia[ICD10: H53.2] Diagnosis: [place][ICD10: F30.9] Lita BARAKAT DO [facility] CPT-4: 07194 06/17/2019 ([id number]) NURSE/OUTPATIENT VISIT EST Diagnosis: Vitamin B12 deficiency anemia, unspecified[ICD10: D51.9] Lita BARAKAT DO [facility] CPT-4: 98685 06/10/2019 ([id number]) NURSE/OUTPATIENT VISIT EST Diagnosis: Vitamin B12 deficiency anemia, unspecified[ICD10: D51.9] Lita BARAKAT DO [facility] CPT-4: 68157 06/02/2019 ([id number]) NURSE/OUTPATIENT VISIT EST Diagnosis: Vitamin B12 deficiency anemia, unspecified[ICD10: D51.9] Lita BARAKAT DO [facility] CPT-4: 46306 05/27/2019 ([id number]) NURSE/OUTPATIENT VISIT EST Diagnosis: Vitamin B12 deficiency anemia, unspecified[ICD10: D51.9] Lita BARAKAT [employer] [facility] CPT-4: 80724 05/12/2019 ([id number]) OFFICE/OUTPATIENT VISIT EST Diagnosis: Restless legs syndrome[ICD10: G25.81] Diagnosis: Primary insomnia[ICD10: F51.01] Diagnosis: Anemia, unspecified[ICD10: D64.9] Diagnosis: Type 2 diabetes mellitus with hyperglycemia[ICD10: E11.65] Diagnosis: Vitamin D deficiency, unspecified[ICD10: E55.9] Lita BARAKAT [employer] [facility] CPT-4: 23731 05/08/2019 ([id number]) OFFICE/OUTPATIENT VISIT EST Diagnosis: Pain in right knee[ICD10: M25.561] Diagnosis: Restless legs syndrome[ICD10: G25.81] Diagnosis: Insomnia, unspecified[ICD10: G47.00] Lita BARAKAT [employer] [facility] CPT-4: 40748 04/07/2019 ([id number]) NO CHARGE Diagnosis: Chronic obstructive pulmonary disease with (acute) exacerbation[ICD10: J44.1] Diagnosis: Dizziness and giddiness[ICD10: R42] Diagnosis: Generalized anxiety disorder[ICD10: F41.1] Autumn BARAKAT [employer] [facility] CPT-4: 03293 03/24/2019 ([id number]) OFFICE/OUTPATIENT VISIT EST Diagnosis: Chronic obstructive pulmonary disease with (acute) exacerbation[ICD10: J44.1] Diagnosis: Dizziness and giddiness[ICD10: R42] Autumn CORRAL ELTON Ashley BARAKAT [employer] [facility] CPT-4: 74629 03/21/2019 ([id number]) OFFICE/OUTPATIENT VISIT EST Diagnosis: Candidal stomatitis[ICD10: B37.0] Lita ALYOSCAR Segura Ashley BARAKAT [employer] [facility] CPT-4: 79024 03/13/2019 ([id number]) OFFICE/OUTPATIENT VISIT EST Diagnosis: Chronic obstructive pulmonary disease with acute lower respiratory infection[ICD10: J44.0] Diagnosis: Restless legs syndrome[ICD10: G25.81] Lita BARAKAT DO [facility] CPT-4: 14270 03/10/2019 ([id number]) OFFICE/OUTPATIENT VISIT EST Diagnosis: Restless legs syndrome[ICD10: G25.81] Lita BARAKAT DO [facility] CPT-4: 30940 02/26/2019 ([id number]) OFFICE/OUTPATIENT VISIT EST Diagnosis: Primary insomnia[ICD10: F51.01] Diagnosis: Chronic obstructive pulmonary disease, unspecified[ICD10: J44.9] Lita BARAKAT DO [facility] CPT-4: 67743 02/13/2019 ([id number]) OFFICE/OUTPATIENT VISIT EST Diagnosis: Chronic obstructive pulmonary disease, unspecified[ICD10: J44.9] Diagnosis: Chronic respiratory failure with hypoxia[ICD10: J96.11] Diagnosis: Chronic respiratory failure with hypercapnia[ICD10: J96.12] Lita BARAKAT DO [facility] CPT-4: 25200 01/14/2019 ([id number]) OFFICE/OUTPATIENT VISIT EST Diagnosis: Chronic respiratory failure with hypoxia[ICD10: J96.11] Diagnosis: Patient's noncompliance with other medical treatment and regimen[ICD10: Z91.19] Diagnosis: Chronic obstructive pulmonary disease with (acute) exacerbation[ICD10: J44.1] Lita BARAKAT DO [facility] CPT- 4: 13384 12/25/2018 ([id number]) OFFICE/OUTPATIENT VISIT EST Diagnosis: Essential (primary) hypertension[ICD10: I10] Diagnosis: Type 2 diabetes mellitus with hyperglycemia[ICD10: E11.65] Diagnosis: Hypothyroidism, unspecified[ICD10: E03.9] Diagnosis: Hyperlipidemia, unspecified[ICD10: E78.5] Diagnosis: Acute recurrent maxillary sinusitis[ICD10: J01.01] Ines Banerjee LITA BARAKAT DO [facility] CPT-4: 70253 12/09/2018 ([id number]) OFFICE/OUTPATIENT VISIT EST Diagnosis: Candidal stomatitis[ICD10: B37.0] Lita BARAKAT [facility] CPT-4: 98130 12/05/2018 ([id number]) OFFICE/OUTPATIENT VISIT EST Diagnosis: Acute recurrent sinusitis, unspecified[ICD10: J01.91] Diagnosis: Pain in right knee[ICD10: M25.561] Lita BARAKAT DO [facility] CPT-4: 78898 10/23/2018 ([id number]) OFFICE/OUTPATIENT VISIT EST Diagnosis: Restless legs syndrome[ICD10: G25.81] Diagnosis: Basal cell carcinoma of skin of scalp and neck[ICD10: C44.41] Lita BARAKAT DO [facility] CPT-4: 01050 08/21/2018 ([id number]) OFFICE/OUTPATIENT VISIT EST Diagnosis: Chronic obstructive pulmonary disease with acute lower respiratory infection[ICD10: J44.0] Diagnosis: Restless legs syndrome[ICD10: G25.81] Lita BARAKAT DO [facility] CPT-4: 47321 08/07/2018 ([id number]) OFFICE/OUTPATIENT VISIT EST Diagnosis: Chronic obstructive pulmonary disease with acute lower respiratory infection[ICD10: J44.0] Lita BARAKAT DO [facility] CPT-4: 41160 05/23/2018 ([id number]) OFFICE/OUTPATIENT VISIT EST Diagnosis: Candidal stomatitis[ICD10: B37.0] Lita BARAKAT DO [facility] CPT-4: 97346 05/02/2018 ([id number]) OFFICE/OUTPATIENT VISIT EST Diagnosis: Candidal stomatitis[ICD10: B37.0] Diagnosis: Other retention of urine[ICD10: R33.8] Diagnosis: Chronic obstructive pulmonary disease with acute lower respiratory infection[ICD10: J44.0] Autumn BARAKAT DO [facility] CPT-4: 91379 04/29/2018 ([id number]) OFFICE/OUTPATIENT VISIT EST Diagnosis: Chronic obstructive pulmonary disease with acute lower respiratory infection[ICD10: J44.0] Lita BARAKAT DO [facility] CPT-4: 67341 04/22/2018 ([id number]) OFFICE/OUTPATIENT VISIT EST Diagnosis: Unilateral primary osteoarthritis, right knee[ICD10: M17.11] Diagnosis: Squamous cell carcinoma of skin, unspecified[ICD10: C44.92] Lita BARAKAT DO [facility] CPT-4: 55592 01/28/2018 ([id number]) OFFICE/OUTPATIENT VISIT EST Diagnosis: Pain in right knee[ICD10: M25.561] Diagnosis: 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] Lita BARAKAT DO [facility] CPT-4: 19977 01/23/2018 ([id number]) OFFICE/OUTPATIENT VISIT EST Diagnosis: Urinary tract infection, site not specified[ICD10: N39.0] Diagnosis: Chronic obstructive pulmonary disease with acute lower respiratory infection[ICD10: J44.0] Lita BARAKAT DO [facility] CPT-4: 51441 01/02/2018 ([id number]) OFFICE/OUTPATIENT VISIT EST Diagnosis: Chronic obstructive pulmonary disease with (acute) exacerbation[ICD10: J44.1] Autumn BARAKAT DO [facility] CPT- 4: 43642 12/28/2017 ([id number]) OFFICE/OUTPATIENT VISIT EST Diagnosis: Acute bronchitis, unspecified[ICD10: J20.9] Autumn BARAKAT DO [facility] CPT-4: 36176 12/21/2017 ([id number]) OFFICE/OUTPATIENT VISIT EST Diagnosis: Chronic obstructive pulmonary disease with acute lower respiratory infection[ICD10: J44.0] Diagnosis: Pain in right knee[ICD10: M25.561] Autumn BARAKAT [facility] CPT-4: 77911 12/17/2017 ([id number]) OFFICE/OUTPATIENT VISIT EST Diagnosis: Laceration without foreign body of right hand, sequela[ICD10: S61.411S] Diagnosis: Restless legs syndrome[ICD10: G25.81] Lita BARAKAT [facility] CPT-4: 67899 10/17/2017 OFFICE/OUTPATIENT VISIT EST Diagnosis: Chronic obstructive pulmonary disease with acute lower respiratory infection[ICD10: J44.0] Autumn BARAKAT DO [facility] CPT-4: 35425 08/02/2017 ([id number]) OFFICE/OUTPATIENT VISIT EST Diagnosis: PNEUMOCOCCAL VACCINE[ICD10: Z23] Lita BARAKAT [facility] CPT-4: 42696 07/24/2017 OFFICE/OUTPATIENT VISIT EST Diagnosis: Chronic obstructive pulmonary disease with (acute) exacerbation[ICD10: J44.1] Autumn BARAKAT [facility] CPT- 4: 62723 07/02/2017 OFFICE/OUTPATIENT VISIT EST Diagnosis: Low back pain[ICD10: M54.5] Ruchi Buchanan LITA GHOTRA [facility] CPT-4: 79597 05/29/2017 ([id number]) OFFICE/OUTPATIENT VISIT EST Diagnosis: Essential (primary) hypertension[ICD10: I10] Diagnosis: Hypothyroidism, unspecified[ICD10: E03.9] Diagnosis: Dizziness and giddiness[ICD10: R42] Diagnosis: Other abnormality of red blood cells[ICD10: R71.8] Diagnosis: Contracture of muscle, unspecified site[ICD10: M62.40] Lita BARAKAT [facility] CPT-4: 41583 04/17/2017 OFFICE/OUTPATIENT VISIT EST Diagnosis: Pain in left shoulder[ICD10: M25.512] Ruchi Buchanan TADEO BARAKAT [facility] CPT-4: 07766 01/29/2017 ([id number]) OFFICE/OUTPATIENT VISIT EST Diagnosis: Anemia, unspecified[ICD10: D64.9] Lita Archerelvabev RUSSEL E Ashley BARAKAT [facility] CPT-4: 52335 12/27/2016 ([id number]) OFFICE/OUTPATIENT VISIT EST Diagnosis: Other fatigue[ICD10: R53.83] Diagnosis: Other iron deficiency anemias[ICD10: D50.8] Lita BARAKAT [facility] CPT-4: 58962 12/21/2016 ([id number]) OFFICE/OUTPATIENT VISIT EST Diagnosis: Anemia, unspecified[ICD10: D64.9] Diagnosis: Other fatigue[ICD10: R53.83] Diagnosis: Restless legs syndrome[ICD10: G25.81] Lita AGNE Ashley BARAKAT DO [facility] CPT-4: 27613 12/14/2016 ([id number]) OFFICE/OUTPATIENT VISIT EST Diagnosis: Anemia, unspecified[ICD10: D64.9] Diagnosis: Other abnormality of red blood cells[ICD10: R71.8] Lita BARAKAT DO [facility] CPT-4: 52564 12/12/2016 ([id number]) OFFICE/OUTPATIENT VISIT EST Diagnosis: Pneumonia, unspecified organism[ICD10: J18.9] Diagnosis: Restless legs syndrome[ICD10: G25.81] Magda HERRMANNONIEL MARC Ashley BARAKAT [facility] CPT-4: 50658 11/14/2016 ([id number]) OFFICE/OUTPATIENT VISIT EST Diagnosis: Candidal stomatitis[ICD10: B37.0] Lita Oreelvabev GOODE Daja DonovanFerdinand GASPER [facility] CPT-4: 55598 10/31/2016 ([id number]) OFFICE/OUTPATIENT VISIT EST Diagnosis: Acute upper respiratory infection, unspecified[ICD10: J06.9] Diagnosis: Personal history of pneumonia (recurrent)[ICD10: Z87.01] Magda ALYLINE Ashley BARAKAT [facility] CPT-4: 54657 10/03/2016 ([id number]) OFFICE/OUTPATIENT VISIT EST Diagnosis: Restless legs syndrome[ICD10: G25.81] Diagnosis: Insomnia, unspecified[ICD10: G47.00] Magda ALY JESSICA DonovanFerdinand GASPER [facility] CPT-4: 98803 09/04/2016 ([id number]) OFFICE/OUTPATIENT VISIT EST Diagnosis: Restless legs syndrome[ICD10: G25.81] Diagnosis: Primary insomnia[ICD10: F51.01] Lita ALYLINE DonovanFerdinand GASPER [facility] CPT-4: 21594 08/10/2016 OFFICE/OUTPATIENT VISIT EST Diagnosis: Toxic gastroenteritis and colitis[ICD10: K52.1] Diagnosis: Dizziness and giddiness[ICD10: R42] Diagnosis: Headache[ICD10: R51] Diagnosis: Restless legs syndrome[ICD10: G25.81] Lita PIEDRA MARC DonovanFerdinand [facility] CPT-4: 71125 07/06/2016 ([id number]) OFFICE/OUTPATIENT VISIT EST Diagnosis: Chest pain, unspecified[ICD10: R07.9] Diagnosis: Dyspnea, unspecified[ICD10: R06.00] Magda BARAKAT [facility] CPT-4: 82595 06/22/2016 ([id number]) OFFICE/OUTPATIENT VISIT EST 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] Diagnosis: PNEUMOCOCCAL VACCINE[ICD10: Z23] Diagnosis: FLU VACCINE[ICD10: Z23] Lita FUNEZ [facility] CPT-4: 10651 06/13/2016 ([id number]) OFFICE/OUTPATIENT VISIT EST Diagnosis: Chest pain, unspecified[ICD10: R07.9] Diagnosis: Other forms of dyspnea[ICD10: R06.09] Diagnosis: Shortness of breath[ICD10: R06.02] Diagnosis: Other fatigue[ICD10: R53.83] Magda [facility] CPT-[facility]: 88739 06/01/2016 ([id number]) OFFICE/OUTPATIENT VISIT EST Diagnosis: Unspecified hearing loss, left ear[ICD10: H91.92] Diagnosis: Other specified disorders of Eustachian tube, left ear[ICD10: H69.82] Magda [facility] CPT-4: 86465 11/2015 ([id number]) OFFICE/OUTPATIENT VISIT EST Diagnosis: Impacted cerumen, bilateral[ICD10: H61.23] Diagnosis: DM W/O COMPLICATION TYPE I, 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: E10.9] Diagnosis: Generalized anxiety disorder[ICD10: F41.1] Lita Gasper ALYLINE Ashley BARAKAT [facility] CPT-4: 40793 04/03/2016 ([id number]) OFFICE/OUTPATIENT VISIT EST Diagnosis: 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] Lita Gasper ALYLINE Ashley BARAKAT [facility] CPT - 4: 75824 03/13/2016 ([id number]) OFFICE/OUTPATIENT VISIT EST Diagnosis: Type 2 diabetes mellitus with hyperglycemia[ICD10: E11.65] Diagnosis: Hyperlipidemia, unspecified[ICD10: E78.5] Diagnosis: Essential (primary) hypertension[ICD10: I10] Diagnosis: Chronic obstructive pulmonary disease, unspecified[ICD10: J44.9] Diagnosis: Testicular hypofunction[ICD10: E29.1] Diagnosis: Male erectile dysfunction, unspecified[ICD10: N52.9] Diagnosis: Anemia, unspecified[ICD10: D64.9] Lita Segura Ashley BARAKAT [employer] [facility] CPT-4: 82878 03/06/2016 ([id number]) OFFICE/OUTPATIENT VISIT EST Diagnosis: Type 2 diabetes mellitus with hyperglycemia[ICD10: E11.65] Diagnosis: Hyperlipidemia, unspecified[ICD10: E78.5] Diagnosis: Chronic obstructive pulmonary disease, unspecified[ICD10: J44.9] Diagnosis: Male erectile dysfunction, unspecified[ICD10: N52.9] Lita Jasminbetty CRAWFORD DonovanFerdinand GASPER [employer] [facility] CPT-4: 84091 03/02/2016 ([id number]) OFFICE/OUTPATIENT VISIT EST Diagnosis: Pain in right foot[ICD10: M79.671] Magda GONZALES Ashley BARAKAT [employer] [facility] CPT-4: 03639 02/14/2016 OFFICE/OUTPATIENT VISIT EST Diagnosis: Generalized anxiety disorder[ICD10: F41.1] Lita Gasper ALYLINE DonovanFerdinand GASPER [employer] [facility] CPT-4: 42076 01/31/2016 ([id number]) OFFICE/OUTPATIENT VISIT EST Diagnosis: Generalized anxiety disorder[ICD10: F41.1] Lita Gasper LITA DonovanFerdinand GASPER [employer] [facility] CPT-4: 13846 12/30/2015 ([id number]) OFFICE/OUTPATIENT VISIT EST Diagnosis: Localized swelling, mass and lump, neck[ICD10: R22.1] Lita HERRMANNQUELINE DonovanFerdinand GASPER [facility] CPT-4: 23751 12/16/2015 OFFICE/OUTPATIENT VISIT EST Diagnosis: Localized enlarged lymph nodes[ICD10: R59.0] Diagnosis: Otalgia, left ear[ICD10: H92.02] Stephanie CRAWFORD DonovanFerdinand GASPER [employer] [facility] CPT-4: 21131 12/06/2015 OFFICE/OUTPATIENT VISIT EST Diagnosis: Localized enlarged lymph nodes[ICD10: R59.0] Diagnosis: Squamous cell carcinoma of skin, unspecified[ICD10: C44.92] Diagnosis: Actinic keratosis[ICD10: L57.0] Stephanie BARAKAT DO [facility] CPT-4: 45787 11/15/2015 OFFICE/OUTPATIENT VISIT EST Diagnosis: Cellulitis of left lower limb[ICD10: L03.116] Diagnosis: Encounter for examination and observation for other specified reasons[ICD10: Z04.8] Diagnosis: Chronic obstructive pulmonary disease, unspecified[ICD10: J44.9] Stephanie EspinozaAshleyisabella ALYLINE Ashley BARAKAT DO [facility] CPT-4: 72439 07/22/2015 OFFICE/OUTPATIENT VISIT EST Diagnosis: Other specified joint disorders, left knee[ICD10: M25.862] Diagnosis: Cellulitis of left lower limb[ICD10: L03.116] Diagnosis: Other fatigue[ICD10: R53.83] Diagnosis: Hyperlipidemia, unspecified[ICD10: E78.5] Stephanie EspinozaAshleyisabella BARAKAT DO [facility] CPT-4: 73527 07/01/2015 OFFICE/OUTPATIENT VISIT EST Diagnosis: Pain in left knee[ICD10: M25.562] Diagnosis: Cellulitis of left lower limb[ICD10: L03.116] Diagnosis: Other specified joint disorders, left knee[ICD10: M25.862] Stephanie EspinozaAshleyisabella ALYLINE DonovanFerdinand GASPER [employer] [facility] CPT-4: 67837 06/28/2015 OFFICE/OUTPATIENT VISIT EST Diagnosis: PREPATELLAR BURSITIS[ICD9: 726.65] Diagnosis: Cellulitis of knee, left[ICD9: 682.6] Stephanie RTAN DonovanFerdinand GASPER [employer] [facility] CPT-4: 21390 06/09/2015 ([id number]) OFFICE/OUTPATIENT VISIT EST Diagnosis: PREPATELLAR BURSITIS[ICD9: 726.65] Diagnosis: Cellulitis of knee, left[ICD9: 682.6] Lita TRAN DonovanFerdinand GASPER [employer] [facility] CPT-4: 03380 06/07/2015 OFFICE/OUTPATIENT VISIT EST Diagnosis: Cellulitis of knee, left[ICD9: 682.6] Stephanie BARAKAT DO [facility] CPT-4: 79647 06/03/2015 ([id number]) OFFICE/OUTPATIENT VISIT EST Diagnosis: DM W/O COMPLICATION TYPE II, UNCONTROLLED[ICD9: 250.02] Diagnosis: COPD[ICD9: 496] Lita BARAKAT DO [facility] CPT- 4: 91919 06/01/2015 ([id number]) OFFICE/OUTPATIENT VISIT EST Diagnosis: COPD[ICD9: 496] Diagnosis: DYSPNEA[ICD9: 786.09] Diagnosis: DM W/O COMPLICATION TYPE II, UNCONTROLLED[ICD9: 250.02] Diagnosis: Actinic keratosis[ICD9: 702.0] Lita BARAKAT DO [facility] CPT-4: 71943 02/25/2015 ([id number]) OFFICE/OUTPATIENT VISIT EST Diagnosis: ASTHMA NOS[ICD9: 493.90] Diagnosis: COPD[ICD9: 496] Diagnosis: DM W/O COMPLICATION TYPE II, UNCONTROLLED[ICD9: 250.02] Lita BARAKAT DO [facility] CPT-4: 72134 10/27/2014 OFFICE/OUTPATIENT VISIT EST Diagnosis: DYSPNEA[ICD9: 786.09] Diagnosis: COPD[ICD9: 496] Lita BARAKAT DO [facility] CPT- 4: 79734 10/06/2014 ([id number]) OFFICE/OUTPATIENT VISIT EST Diagnosis: PNEUMONIA, ORGANISM[ICD9: 486] Diagnosis: COPD[ICD9: 496] Diagnosis: DYSPNEA[ICD9: 786.09] Lita BARAKAT DO [facility] CPT-4: 30991 09/21/2014 OFFICE/OUTPATIENT VISIT EST Diagnosis: PNEUMONIA, ORGANISM[ICD9: 486] Diagnosis: DYSPNEA[ICD9: 786.09] Diagnosis: COUGH[ICD9: 786.2] Stephanie BARAKAT DO [facility] CPT-4: 12481 09/08/2014 OFFICE/OUTPATIENT VISIT EST Diagnosis: COPD with exacerbation[ICD9: 491.21] Diagnosis: COUGH[ICD9: 786.2] Diagnosis: DYSPNEA[ICD9: 786.09] Stephanie BARAKAT [facility] CPT-4: 67093 09/02/2014 ([id number]) OFFICE/OUTPATIENT VISIT EST Diagnosis: DM W/O COMPLICATION TYPE II, UNCONTROLLED[ICD9: 250.02] Lita BARAKAT DO [facility] CPT-4: 11658 08/27/2014 ([id number]) OFFICE/OUTPATIENT VISIT EST Diagnosis: DM W/O COMPLICATION TYPE II, UNCONTROLLED[ICD9: 250.02] Diagnosis: HYPERLIPIDEMIA NEC/NOS[ICD9: 272.4] Diagnosis: HYPERTENSION[ICD9: 401.9] Diagnosis: COPD[ICD9: 496] Diagnosis: FLU VACCINE[ICD10: Z23] Lita PABLO [facility] CPT-4: 41009 08/05/2014 ([id number]) OFFICE/OUTPATIENT VISIT EST Diagnosis: COPD[ICD9: 496] Diagnosis: Lumbar degenerative disc disease[ICD9: 722.52] Lita BARAKAT [facility] CPT-4: 67729 05/05/2014 OFFICE/OUTPATIENT VISIT EST Diagnosis: DYSPNEA[ICD9: 786.09] Diagnosis: COPD[ICD9: 496] Lita BARAKAT [facility] CPT- 4: 95382 03/24/2014 ([id number]) OFFICE/OUTPATIENT VISIT EST Diagnosis: COPD[ICD9: 496] Diagnosis: DYSPNEA[ICD9: 786.09] Lita BARAKAT [facility] CPT-4: 59067 03/10/2014 OFFICE/OUTPATIENT VISIT EST Diagnosis: Subacromial bursitis[ICD9: 726.19] Diagnosis: Chronic low back pain[ICD9: 724.2] Diagnosis: Lumbar degenerative disc disease[ICD9: 722.52] Lita BARAKAT [facility] CPT-4: 81580 12/16/2013 ([id number]) OFFICE/OUTPATIENT VISIT EST Diagnosis: PHARYNGITIS, ACUTE[ICD9: 462] Diagnosis: COPD[ICD9: 496] Lita HERRMANNQUELINE S. [facility] CPT- 4: 23614 10/09/2013 OFFICE/OUTPATIENT VISIT EST Diagnosis: COPD[ICD9: 496] Diagnosis: Acute exacerbation of chronic obstructive pulmonary disease (COPD)[ICD9: 491.21] Ruchi CRAWFORD Ashley BARAKAT [facility] CPT-4: 22799 09/18/2013 ([id number]) OFFICE/OUTPATIENT VISIT EST Diagnosis: PNEUMONIA, ORGANISM[ICD9: 486] Diagnosis: DM W/O COMPLICATION TYPE II[ICD9: 250.00] Lita [facility] CPT-4: 82449 08/13/2013 ([id number]) OFFICE/OUTPATIENT VISIT EST Diagnosis: DM W/O COMPLICATION TYPE II, UNCONTROLLED[ICD9: 250.02] Diagnosis: HYPERLIPIDEMIA NEC/NOS[ICD9: 272.4] Diagnosis: HYPERTENSION[ICD9: 401.9] Diagnosis: DYSPNEA[ICD9: 786.09] Diagnosis: Family history of CABG[ICD9: V17.49] Lita HERRMANNRAJESH [facility] CPT-4: 83932 07/16/2013 ([id number]) OFFICE/OUTPATIENT VISIT EST Diagnosis: DM W/O COMPLICATION TYPE II, UNCONTROLLED[ICD9: 250.02] Diagnosis: HYPERLIPIDEMIA NEC/NOS[ICD9: 272.4] Diagnosis: HYPERTENSION[ICD9: 401.9] [facility]: 80896 06/25/2013 OFFICE/OUTPATIENT VISIT EST Diagnosis: COUGH[ICD9: 786.2] Diagnosis: COPD[ICD9: 496] Kimberly HERRMANNQUELINE DonovanFerdinand [facility] CPT- 4: 30110 04/09/2013 ([id number]) OFFICE/OUTPATIENT VISIT EST Diagnosis: Muscle spasm[ICD9: 728.85] Diagnosis: ARTHRALGIA-MULTIPLE SITES[ICD9: 719.49] Lita HERRMANN RAJESHJESSICA DonovanFerdinand [facility] CPT-4: 95998 02/11/2013 OFFICE/OUTPATIENT VISIT EST Diagnosis: COPD with exacerbation[ICD9: 491.21] Diagnosis: BRONCHITIS, ACUTE[ICD9: 466.0] Ruchi ALYLINE S . ORENDER [facility] CPT-4: 99652 01/31/2013 OFFICE/OUTPATIENT VISIT EST Diagnosis: COUGH[ICD9: 786.2] Diagnosis: PHARYNGITIS, ACUTE[ICD9: 462] Diagnosis: SINUSITIS, ACUTE[ICD9: 461.9] Lita [facility] CPT-4: 54130 01/20/2013 OFFICE/OUTPATIENT VISIT EST Diagnosis: DIZZINESS/VERTIGO[ICD9: 780.4] Lita BARAKAT [facility] CPT-4: 43067 12/19/2012 OFFICE/OUTPATIENT VISIT EST Diagnosis: Skin lesion of left arm[ICD9: 709.9] Diagnosis: Otitis externa[ICD9: 380.10] Diagnosis: PHARYNGITIS, ACUTE[ICD9: 462] Lita [facility] CPT-4: 50146 10/21/2012 ([id number]) OFFICE/OUTPATIENT VISIT EST Diagnosis: DM W/O COMPLICATION TYPE II, UNCONTROLLED[ICD9: 250.02] Diagnosis: HYPERLIPIDEMIA NEC/NOS[ICD9: 272.4] Diagnosis: HYPERTENSION[ICD9: 401.9] [facility]: 46580 09/19/2012 ([id number]) OFFICE/OUTPATIENT VISIT EST Diagnosis: DM W/O COMPLICATION TYPE II, UNCONTROLLED[ICD9: 250.02] Diagnosis: HYPERLIPIDEMIA NEC/NOS[ICD9: 272.4] Diagnosis: COPD[ICD9: 496] Lita BARAKAT [facility] CPT- 4: 32747 09/18/2012 ([id number]) OFFICE/OUTPATIENT VISIT EST Diagnosis: BRONCHITIS, ACUTE[ICD9: 466.0] Diagnosis: SINUSITIS, ACUTE[ICD9: 461.9] Lita BARAKAT [facility] CPT-4: 94060 08/28/2012 ([id number]) OFFICE/OUTPATIENT VISIT EST Diagnosis: COPD[ICD9: 496] Diagnosis: DYSPNEA[ICD9: 786.09] Diagnosis: VAC STREP PNEUMONIAE-FLU (Medicare)[ICD9: V06.6] Lita BARAKAT DO [facility] CPT-4: 24564 07/10/2012 ([id number]) OFFICE/OUTPATIENT VISIT EST Diagnosis: DM W/O COMPLICATION TYPE II, UNCONTROLLED[ICD9: 250.02] Diagnosis: HYPERTENSION[ICD9: 401.9] Diagnosis: HYPERLIPIDEMIA NEC/NOS[ICD9: 272.4] Diagnosis: DIZZINESS/VERTIGO[ICD9: 780.4] Lita BARAKAT DO [facility] CPT-4: 69278 05/09/2012 ([id number]) OFFICE/OUTPATIENT VISIT EST Diagnosis: DM W/O COMPLICATION TYPE II, UNCONTROLLED[ICD9: 250.02] Diagnosis: HYPERLIPIDEMIA NEC/NOS[ICD9: 272.4] Diagnosis: HYPERTENSION[ICD9: 401.9] Diagnosis: MALAISE AND FATIGUE[ICD9: 780.79] Lita BARAKAT DO [facility] CPT-4: 34228 05/06/2012 OFFICE/OUTPATIENT VISIT EST Diagnosis: COUGH[ICD9: 786.2] Diagnosis: SINUSITIS, ACUTE[ICD9: 461.9] Diagnosis: PHARYNGITIS, ACUTE[ICD9: 462] Lita BARAKAT DO [facility] CPT-4: 44452 10/02/2011 OFFICE/OUTPATIENT VISIT EST Diagnosis: DM W/O COMPLICATION TYPE II, UNCONTROLLED[ICD9: 250.02] Diagnosis: HYPERLIPIDEMIA NEC/NOS[ICD9: 272.4] Diagnosis: HYPERTENSION[ICD9: 401.9] Diagnosis: COPD[ICD9: 496] Lita BARAKAT DO [facility] CPT- 4: 01626 08/07/2011 OFFICE/OUTPATIENT VISIT EST Lita ALYLINE Ashley ARCHER NDELeroy JOHNSON [facility] CPT- 4: 33351 04/03/2011 ([id number]) OFFICE/OUTPATIENT VISIT EST Litacarol BARAKAT DO [facility] CPT-4: 21641 01/18/2011 ([id number]) OFFICE/OUTPATIENT VISIT EST Litacarol Archerelvabev EKATERINA SUZANNE BARAKAT DO [facility] CPT-4: 20158 12/19/2010 ([id number]) OFFICE/OUTPATIENT VISIT, SUZANNE [facility] CPT-4: 79489 04/05/2010 ([id number]) OFFICE/OUTPATIENT VISIT, SUZANNE [facility]MAN [facility] CPT-4: 44297 01/13/2010 ([id number]) OFFICE/OUTPATIENT VISIT, SUZANNE HOLMAN SFerdinand [facility] CPT-4: 18610 12/23/2009 ([id number]) OFFICE/OUTPATIENT VISIT, EST Lita [facility]MAN [facility] CPT-4: 89720 12/22/2009 ([id number]) OFFICE/OUTPATIENT VISIT, SUZANNE HOLMAN SFerdinand [facility] CPT-4: 33118 12/13/2009 Plan of Care Planned Activity Notes Codes Status Date Visit Diagnosis Plan: Chronic respiratory failure with [...] : C44.310 11/12/2019 Appointment: Lita [facility] [phone] [id number] [facility] 11/12/2019 Care Plan: Referral Order SNOMED-CT : 30 [id number] Pending 11/12/2019 Care Plan: Referral Order SNOMED-CT : 30 [id number] Pending 11/12/2019 Visit Diagnosis Plan: Right thyroid nodule Discussion: Check thyroid US ICD-9 : 241.0 ICD-10 : E04.1 09/11/2019 Visit Diagnosis Plan: Chronic obstructive pulmonary di sease, unspecified Discussion: Start Pulmonary Rehab Reviewed results of CT of chest ordered by pulmonology Follow Up: 3 months ICD-9 : 496 ICD-10 : J44.9 09/11/2019 Appointment: Lita Barakat WPtel: [address] [place], [place] [phone] MEDICATION REVIEW 09/11/2019 Care Plan: US EXAM OF HEAD AND NECK LOIN C : 85220-6 Pending 09/11/2019 Visit Diagnosis Plan: Chronic bronchitis Discussion: A ugmentin for 10 days ICD-9 : 491.9 ICD-10 : J42 08/07/2019 Appointment: Lita Barakat WPtel: [address] [place], [place] [phone] ACUTE ILLNESS 08/07/2019 Visit Diagnosis Plan: Chronic [...] him that overuse of symbicort can cause intermission coordinator damage and the albuterol is to be used every 4 hours as needed. call office later this week with worsening or no improvement ICD-9 : 491.21 ICD-10 : J44.1 07/14/2019 Appointment: Autumn Oneil [address] [place], [place] [id number] 07/14/2019 Visit Diagnosis Plan: Dyspepsia [...] : F51.01 07/01/2019 Appointment: Lita Barakat WPtel: [address] [place], [place] [phone] US FOLLOW UP 07/01/2019 Care Plan: CT ABDOMEN W/O DYE LOINC : 36 103-0 Pending 07/01/2019 Care Plan: Referral Order SNOMED-CT : 30 [id number] Pending 07/01/2019 Visit Diagnosis Plan: Weight loss [...] : R10.13 06/24/2019 Appointment: Lita Barakat WPtel: [address] [place], [place] [phone] ACUTE ILLNESS 06/24/2019 Patient Education: Seroquel- [employer] Coupon [id number] https://www.Wizdee/samplemd/resources/getResource/61/5ah9c1x3-t360-15e7-78 Completed 06/24/2019 Patient Education: ondansetron HCl- [employer] Coupon [id number] https://www.Wizdee/samplemd/resources/getResource/61/4887102g-2157-47n5-t5 Completed 06/24/2019 Care Plan: US EXAM ABDOM COMPLETE LOINC : 95860-1 Pending 06/24/2019 Visit Diagnosis Plan: Chronic insomnia [...] ICD-10 : H53.2 06/17/2019 Appointment: Lita Barakattel: [address] [place] [address] US FOLLOW UP 06/17/2019 Appointment: Lita Barakat WPtel: [address] [place] [address] US INJECTION 06/10/2019 Appointment: Lita Barakat WPtel: [address] [place] [address] US INJECTION 06/02/2019 Appointment: Lita Barakat WPtel: [address] [place] [address] US INJECTION 05/27/2019 Appointment: Lita Barakat WPtel: [address] [place] [address] US INJECTION 05/12/2019 Visit Diagnosis Plan: Anemia, [...] : E55.9 05/08/2019 Appointment: Lita Barakat WPtel: [address] [place], [place] [id number] FOLLOW UP 05/08/2019 Visit Diagnosis Plan: Pain in right knee Discussion: S top tramadol and tylenol q HS Trial of Hydrocodone 10/325mg po q HS Recheck 1month ICD-9 : 719.46 ICD-10 : M25.561 04/07/2019 Appointment: Lita Barakat WPtel: [address] [place], [place] [id number] Hospital Follow Up 04/07/2019 Visit Diagnosis Plan: [...] ICD-10 : F41.1 03/24/2019 Appointment: Autumn Oneil [address] [place], [place] [id number] ACUTE ILLNESS 03/24/2019 Patient Education: hydroxyzine HCl- [employer] Coupon [id number] Completed 03/24/2019 Patient Education: pantoprazole- [employer] Coupon [id number] Completed 03/24/2019 Visit Diagnosis Plan: Chronic obstructiv e pulmonary disease with (acute) exacerbation Discussion: 90 mg solumedrol given in of fice. patient's portable oxygen tank was empty. [id number] patient on importance of monitoring oxygen tank [...] ICD-10 : R42 03/21/2019 Appointment: Autumn Oneil [address] [place] [address] ACUTE ILLNESS 03/21/2019 Patient Education: ipratropium-albuterol- [employer] José vang [phone] https://www.[employer].com/samplemd/resources/getResource/61/l2np97m4-a3k7-9i4z-95 Completed 03/21/2019 Visit Diagnosis Plan: Chronic obstructiv e pulmonary disease with (acute) exacerbation Discussion: Solumedrol now Use SVNs with duoneb at least q4hrs Patient is supposed to be on continuous oxygen but not wearing ICD-9 : 491.21 ICD-10 : J44.1 03/13/2019 Visit Diagnosis Plan: Candidal stomatitis Discussion: Diflucan and Nystatin susp ICD-9 : 112.0 ICD-10 : B37.0 03/13/2019 Appointment: Lita Barakat WPtel: [address] [phone] ACUTE ILLNESS 03/13/2019 Patient Education: losartan- [employer] Coupon [id number] Completed 03/13/2019 Patient Education: nystatin- [employer] Coupon [id number] Completed 03/13/2019 Patient Education: fluconazole- [employer] Coupon [id number] Completed 03/13/2019 Visit Diagnosis Plan: Chronic obstructiv [...] : G25.81 03/10/2019 Appointment: Lita Barakat WPtel: [address] [phone] ACUTE ILLNESS 03/10/2019 Visit Diagnosis Plan: Restless legs syndrome Discussio n: Stop requip Increase sinemet to TID Add children's chewable MV with iron BID Add magnesium oxide 400mg daily Add Lyrica 75mg po q HS Stop trazadone Recheck 3 weeks Follow Up: 3 weeks ICD-9 : 333.94 ICD-10 : G25.81 02/26/2019 Appointment: Lita Barakat WPtel: [address] [place], [place] [phone] ACUTE ILLNESS 02/26/2019 Visit Diagnosis Plan: Primary insomnia Discussion: Tri al of doxepin 10-20mg po q HS prn sleep ICD-9 : 780.52 ICD-10 : F51.01 02/13/2019 Visit Diagnosis Plan: Chronic obstructive pulmonary di sease, unspecified Discussion: Stable Discussed trip to [place]--will get oxygen setup through [facility] ICD-9 : 496 ICD-10 : J44.9 02/13/2019 Appointment: Lita Barakat WPtel: [facility] FOLLOW UP 02/13/2019 Patient Education: doxepin- [employer] Coupon [id number] https://www.[employer]/sampleMoment[employer]ience/resources/getResource/61/23f7x21r-04qo-489p-6s Completed 02/13/2019 Appointment: Lita Barakat WPtel: [address] [place] [address] [place] CANCELED 01/20/2019 Visit Diagnosis Plan: Chronic obstructive pulmonary di sease, unspecified Discussion: Stable on oxygen Given Symbicort samples Follow Up: 1 months ICD-9 : 496 ICD-10 : J44.9 01/14/2019 Appointment: Lita Barakat WPtel: [address] [place] [address] Follow Up 01/14/2019 Visit Diagnosis Plan: Chronic [...] : J96.11 12/25/2018 Appointment: Lita Barakat WPtel: [address] [place] [address] Follow Up 12/25/2018 Appointment: Lita Barakat WPtel: [address] [place] [address] [place] CANCELED 12/23/2018 Appointment: Ines Banerjee [facility] [place] [address] [place] CANCELED 12/20/2018 Visit Diagnosis Plan: Acute recurrent [...] ICD-10 : I10 12/09/2018 Appointment: Ines Banerjee [facility] [address] LAB 12/09/2018 Patient Education: cefdinir- [employer] Coupon [id number] https://www.[employer]/sampleMomentum [employer]ience/resources/getResource/61/h6348d1b-19xc-8673-17 Completed 12/09/2018 Visit Diagnosis Plan: Candidal stomatitis Discussion: Diflucan for 5 days Hold atorvastatin while taking ICD-9 : 112.0 ICD-10 : B37.0 12/05/2018 Appointment: Lita Barakat WPtel: [address] [place] [address] ACUTE ILLNESS 12/05/2018 Patient Education: fluconazole- [employer] Coupon [id number] https://www.[employer]/samplemd/resources/getResource/61/8y610b30-0cj8-03a9-81 Completed 12/05/2018 Appointment: Lita Barakat WPtel: [address] [place] [address] NO SHOW 11/11/2018 Visit Plan: Saline nasal [...] : J01.91 10/23/2018 Appointment: Lita Barakat WPtel: [address] [place] [address] ACUTE ILLNESS 10/23/2018 Patient Education: prednisone- [employer] Coupon [id number] https://www.[employer]/samplemd/resources/getResource/61/cv2zl668-eree-9541-67 Completed 10/23/2018 Care Plan: A1C HPLC LOINC : 82765-1 Pending 09/10/2018 Care Plan: COMPREHEN METABOLIC PANEL [place]IL[place] NC : 34566-2 Pending 09/10/2018 Care Plan: CBC Pending 09/10/2018 [...] : G25.81 08/21/2018 Appointment: Lita Barakat WPtel: [address] [place] [address] ACUTE ILLNESS 08/21/2018 Care Plan: Referral Order SNOMED-CT : 30 [id number] Pending 08/21/2018 Visit Diagnosis Plan: Chronic obstructiv [...] : G25.81 08/07/2018 Appointment: Lita Barakat WPtel: [address] [place] [address] FOLLOW UP 08/07/2018 Appointment: Lita Barakat WPtel: [address] [place], [place] [phone] 07/18/18 1210---see note in chart (km) CANCELED 07/18/2018 Visit Diagnosis Plan: Chronic obstructiv e pulmonary disease with acute lower respiratory infection Discussion: Solumedrol 125mg IM Change t o trelagy 1 inhalation daily Use SVNs with albuterol q4hrs To ER this weekend if worsens Monitor weight/swelling ICD-9 : 496 ICD-10 : J44.0 05/23/2018 Appointment: [facility]at [facility]Ptel[facility] [address] [facility] [facility] 05/23/2018 Patient Education: Patient Medication Summary Completed 05/23/2018 Visit Diagnosis Plan: Candidal stomatitis Discussion: Diflucan for 7 more days--hold atrovastatin while taking ICD-9 : 112.0 ICD-10 : B37.0 05/02/2018 Appointment: Lita Barakat WPtel: [address] [facility] FO[facility] 05/02/2018 Patient Education: Patient Medication [...] ICD-10 : J44.0 04/29/2018 Appointment: Autumn Oneil [address] [place], [place] [address] ACUTE ILLNESS 04/29/2018 Patient Education: Patient Medication [...] : J44.0 04/22/2018 Appointment: Lita Barakat WPtel: [facility] [facility] Follow Up 04/22/2018 Patient Education: Patient Medication Summary Completed 04/22/2018 Appointment: Lita Barakat WPtel: [facility] 04/09/18 1640---see message in chart from [...] : M17.11 01/28/2018 Appointment: Lita Barakat WPtel: [address] [place] [address] ACUTE ILLNESS 01/28/2018 Patient Education: Patient Medication Summary Completed 01/28/2018 Care Plan: Referral Order SNOMED-CT : 30 4032575 Pending 01/28/2018 Care Plan: Referral Order SNOMED-CT : 30 4664454 Pending 01/28/2018 Visit Diagnosis Plan: Functional dyspepsia Discussion: Protonix Call in 1 week on how doing ICD-9 : 536.8 ICD-10 : K30 01/23/2018 Visit Diagnosis Plan: Pain in right knee Discussion: T noemi dooleyaren gel QID ICD-9 : 719.46 ICD-10 : M25.561 01/23/2018 Appointment: Lita Barakat WPtel: [address] [place] [address] ACUTE ILLNESS 01/23/2018 Patient Education: Patient Medication [...] : N39.0 01/02/2018 Appointment: Lita Barakat WPtel: [address] [place] [address] ACUTE ILLNESS 01/02/2018 Patient Education: Patient Medication [...] ICD-10 : J44.1 12/28/2017 Appointment: Autumn Oneil [address] [place] [address] Consult 12/28/2017 Patient Education: Patient Medication Summary [...] ICD-10 : J20.9 12/21/2017 Appointment: Autumn Oneil [address] [place], [place] [phone] ACUTE ILLNESS 12/21/2017 Patient Education: Patient Medication Summary Completed 12/21/2017 Care Plan: X-RAY EXAM OF KNEE 1 OR 2 right [place] NC : 49362-8 Pending 12/18/2017 Visit Diagnosis Plan: Pain in [...] ICD-10 : J44.0 12/17/2017 Appointment: Autumn Oneil [address] [place] [address] ACUTE ILLNESS 12/17/2017 Patient Education: Patient Medication Summary Completed 12/17/2017 Visit Diagnosis Plan: Unilateral primary osteoarthriti s, right knee Discussion: Right knee injection as above Warned of elevated BS after injection ICD-9 : 715.96 ICD-10 : M17.11 12/11/2017 Appointment: Lita Barakat WPtel: [address] [place] [address] OFFICE SURGERY 12/11/2017 Patient Education: Patient Medication Summary Completed 12/11/2017 Visit Diagnosis Plan: Actinic keratosis Discussion: Cr yotherapy as above If persists then will need excision by Dr. Swanson ICD-9 : 702.0 ICD-10 : L57.0 11/07/2017 Appointment: Lita Barakat WPtel: [address] [place] [address] ACUTE ILLNESS 11/07/2017 Patient Education: Patient Medication [...] : S61.411S 10/17/2017 Appointment: Lita Barakat WPtel: [address] [place] [address] ER Follow UP 10/17/2017 Patient Education: Patient Medication Summary Completed 10/17/2017 Appointment: Lita Barakat WPtel: [address] [place] [address] [place] Consult 08/15/2017 Visit Diagnosis Plan: Chronic [...] ICD-10 : J44.0 08/02/2017 Appointment: Autumn Oneil [address] ACUTE ILLNESS 08/02/2017 Patient Education: Patient Medication Summary Completed 08/02/2017 Patient Education: Patient Medication Summary Completed 07/31/2017 Care Plan: CHEST X-RAY 2VW FRONTAL&LATL LOINC : 43354-5 Pending 07/31/2017 Appointment: Lita Barakat WPtel: [address] INJECTION 07/24/2017 Patient Education: Patient Medication Summary [...] ICD-10 : J44.1 07/02/2017 Appointment: Autumn Oneil [address] ACUTE ILLNESS 07/02/2017 Patient Education: Patient Medication Summary Completed 07/02/2017 Care Plan: CHEST X-RAY 2VW FRONTAL&LATL LOINC : 29835-3 Pending 07/02/2017 Care Plan: MRI LUMBAR SPINE W/O DYE LOIN C : 42624-9 Pending 05/30/2017 Visit Plan: MRI at [facility] codone 5.325 1 po q 4-6 hours prn pain #40 NR and Cyclobenzaprine (ERx) Continue warm packs for pain RTC if no improvement 05/29/2017 Appointment: Rcuhi Buchanan WPtel: [address] [place] [address] ACUTE ILLNESS 05/29/2017 Patient Education: Patient Medication Summary Completed 05/29/2017 Appointment: Lita Barakat WPtel: [address] [place] [address] [place] CANCELED 05/24/2017 Patient Education: Patient Medication Summary Completed 05/22/2017 Care Plan: X-RAY EXAM L-S SPINE 2/3 VWS LOINC : 46706-1 Pending 05/22/2017 Appointment: Lita Barakat WPtel: [address] [place] [address] LAB 04/17/2017 Patient Education: Patient Medication Summary Completed 04/17/2017 Referral: Demetrius Rodriguez WPtel: [address] [place] [address] Referral Initiated 04/05/2017 Appointment: Lita Barakat WPtel: [address] [place] [address] 03/30/17 0930---spoke with patient about ointments (km Consult 03/30/2017 Appointment: Lita Barakat WPtel: [address] [place] [address] 03/29/17 1320---spoke with patient, requip refilled wasn't received at pharmacy so verbally called (km) Consult 03/29/2017 Patient Education: Patient Medication Summary Completed 03/01/2017 Care Plan: CHEST X-RAY 2VW FRONTAL&LATL LOINC : 51912-1 Pending 03/01/2017 Visit Diagnosis Plan: Bursitis of left shoulder Discus yesi: Injection as above ICD-9 : 726.10 ICD-10 : M75.52 02/01/2017 Appointment: Lita Barakat WPtel: [address] [place] [address] 01/31 confirmed ~sl WORK IN 02/01/2017 Patient Education: Patient Medication Summary Completed 02/01/2017 Care Plan: X-RAY EXAM OF SHOULDER LOINC : 93322-2 Pending 01/30/2017 Visit Plan: May take OTC Tylenol/Ibuprof en as directed XRay at [facility] of left shoulder Tramadol 50mg 1 po q 6 hours prn pain called to [facility]. Sedation warning given (no driving, etc) RTC if no improvement 01/29/2017 Appointment: Ruchi Buchanan WPtel: [address] [place] [address] ACUTE ILLNESS 01/29/2017 Appointment: Ruchi Buchanan WPtel: [address] [place] [address] ACUTE ILLNESS 01/29/2017 Patient Education: Patient Medication Summary Completed 01/29/2017 Appointment: Lita Barakat WPtel: [address] [place] [address] [place] Consult 01/10/2017 Appointment: Lita Barakat WPtel: [address] [place] [address] 12/27/2016 Patient Education: Patient Medication Summary Completed [...] : R53.83 12/21/2016 Appointment: Lita Barakat WPtel: [address] [place] [address] ACUTE ILLNESS 12/21/2016 Patient Education: Patient Medication Summary Completed 12/21/2016 Appointment: Lita Barakat WPtel: [address] [place], [place] [phone] CANCELED 12/18/2016 Visit Diagnosis Plan: Restless legs [...] : D64.9 12/14/2016 Appointment: Lita Barakat WPtel: [address] [facility] [facility] 12/13 confirmed ~sl WORK IN 12/14/2016 Appointment: Lita Barakat WPtel: [address] [place], [place] [address] [place] CANCELED 12/14/2016 Patient Education: Patient Medication Summary Completed 12/14/2016 Appointment: Lita Barakat WPtel: [address] [facility] [place] LAB 12/12/2016 Patient Education: Patient Medication Summary Completed 12/12/2016 Appointment: Lita Braakat WPtel: [address] [facility] [facility] this weekend--called for reports Consult 12/11/2016 Appointment: Lita Barakat WPtel: [address] [place], [place] [address] [place] CANCELED 12/04/2016 Visit Diagnosis Plan: Pneumonia, [...] at all times as directed by Dr Ines Continue breathing treatments as directed Follow up [...] ICD-10 : G25.81 11/14/2016 Appointment: Magda Toth [address] [place] [address] MEDICATION REVIEW 11/14/2016 Patient Education: Patient Medication Summary Completed 11/14/2016 Appointment: Lita Barakat WPtel: [address] [place], [place] [address] [place] RESCHEDULED 11/02/2016 Visit Diagnosis Plan: Candidal stomatitis Discussion: Diflucan and Nystatin Hold atorvastatin while taking diflucan ICD-9 : 112.0 ICD-10 : B37.0 10/31/2016 Appointment: Lita Barakat WPtel: [address] [place] [address] ACUTE ILLNESS 10/31/2016 Patient Education: Patient Medication Summary Completed 10/31/2016 Appointment: Lita Barakat WPtel: [address] [place], [place] [phone] [place] Consult 10/23/2016 Appointment: Lita Barakat WPtel: [address] [place], [place] [phone] [place] CANCELED 10/18/2016 Visit Plan: Rx as above Wear O2 at all t imes as instructed by Dr Chacon Continue breathing treatments Supportive care otherwise reviewed Follow up ingrid if not improving 10/03/2016 Appointment: Lita Barakat WPtel: [address] [place], [place] [phone] [place] CANCELED 10/03/2016 Appointment: Magda Toth [address] [place], [place] [phone] ACUTE ILLNESS 10/03/2016 Patient Education: Patient Medication Summary Completed 10/03/2016 Visit Plan: Titrate requip to 1.5mg x 1 week Call if not helpful and will increase to 2mg qHS NO MORE nyquil at bedtime - discussed potential effects of decongestants on heart, oversedating himself, etc Will increase requip, then amitriptyline if needed to desired effect 09/04/2016 Appointment: Magda Toth [address] [place] [address] ACUTE ILLNESS 09/04/2016 Patient Education: Patient Medication Summary Completed 09/04/2016 Visit Plan: Stop requip and try elavil C ryotherapy as above See ENT for removal of right ear lesion 08/22/2016 Appointment: Lita Barakat WPtel: [address] [place] [address] ACUTE ILLNESS 08/22/2016 Patient Education: Patient Medication Summary Completed 08/22/2016 Visit Plan: Trial of requip 1mg q HS Res tart zoloft Recheck 1month 08/10/2016 Appointment: Lita Barakat WPtel: [address] [place] [address] ACUTE ILLNESS 08/10/2016 Patient Education: Patient Medication Summary Completed 08/10/2016 Visit Plan: Stop HCTZ Flagyl for diarrhe a Hydrate Discussed meds for restless legs Zofran prn Nausea 07/06/2016 Appointment: Lita Barakat WPtel: [address] [place] [address] 07/05 confirmed~ Hospital Follow Up 07/06/2016 Patient Education: Patient Medication Summary Completed 07/06/2016 Visit Plan: Reviewed with Dr Gasper Palacios sidering his recent history, instructed him to go straight to the ER called to notify her so she can meet him there 06/22/2016 Appointment: Magda Toth [address] ACUTE ILLNESS 06/22/2016 Patient Education: Patient Medication Summary Completed 06/22/2016 Visit Plan: Continue current meds Prevna r 13 and High Dose Flu given 06/13/2016 Appointment: Lita Barakat WPtel: 230 [facility] 06/13 confirmed~sl WORK IN 06/13/2016 Patient Education: Patient Medication Summary Completed 06/13/2016 Appointment: Lita Barakat WPtel: [address] [facility] US just went over current medications CANCELED 06/08/2016 Visit Plan: Reviewed POC with Dr Barakat Stat cbc, cmp, d dimer, troponin, bnp, ekg, cxr If any worsening of symptoms while awaiting results, patient instructed to go to ER or call 911 06/01/2016 Appointment: Magda Toth [address] [place] [address] ACUTE ILLNESS 06/01/2016 Patient Education: Patient Medication Summary Completed 06/01/2016 Referral: José Miguel Swanson WPtel: [address] 04/[address] swanson's office, patient is [...] eval and treatment 04/26/2016 Appointment: Magda Toth [address] [place] [address] ACUTE ILLNESS 04/26/2016 Patient Education: Patient Medication Summary Completed 04/26/2016 Care Plan: Referral Order SNOMED-CT : 30 0920792 Pending 04/26/2016 Visit Plan: Left ear flushed after conse nt with warm water with peroxide with ear syringe Patient tolerated well Ear exam is wnl following flushing Follow up PRN 04/05/2016 Appointment: Magda Toth [address] ACUTE ILLNESS 04/05/2016 Patient Education: Patient Medication Summary Completed 04/05/2016 Visit Plan: Increase Levemir to 25u sc d aily Increase sertraline to 2 full tablets daily--200mg Debrox or cerumenex to bilateral ears q HS for 3 nights then flush or fwup for fushing Check lab in 2mos then fwup 04/03/2016 Appointment: Lita Barakattel: [address] [place], [place] [phone] 03/31 03/31 lm ~sl FOLLOW UP 04/03/2016 Patient Education: Patient Medication Summary Completed 04/03/2016 Visit Plan: Patient informed of correct dosage of levemir and how to administer. Patient verbalizes understanding and will call if any questions/concerns. 10 Units of Levemir given in office SC to right lower abdom en. Patient tolerated well. Site without redness/irritation. 03/13/2016 Appointment: Lita Barakat WPtel: [address] [place], [place] [phone] SPECIAL 03/13/2016 Patient Education: Patient Medication Summary Completed 03/13/2016 Appointment: Lita Barakat WPtel: [address] [place], [place] [phone] LAB 03/06/2016 Patient Education: Patient Medication Summary Completed 03/06/2016 Visit Plan: Patient saw Dr. Chacon this week and was given prednisone taper for COPD Continue current meds Accuchecks daily Patient will return on Sunday morning for fasting lab incuding CBC, CMP, TSH, free T4, HbA1C, Lipids, Testosterone, PSA 03/02/2016 Appointment: Lita Barakattel: [address] [place], [place] [phone] 03/01 confirmed ~sl FOLLOW UP 03/02/2016 Patient [...] how doing 02/17/2016 Appointment: Lita Barakat WPtel: [address] [place], [place] [phone] WORK IN 02/17/2016 Patient Education: Patient Medication Summary Completed 02/17/2016 Visit Plan: Xrays to further evaluate Alvarez spect heel spur(s) Will call with results Has had injections in the past that were helpful Dr Barakat can do them or can refer to podiatry if warranted 02/14/2016 Appointment: Magda Toth [address] [place], [place] [phone] ACUTE ILLNESS 02/14/2016 Patient Education: Patient Medication Summary Completed 02/14/2016 Visit Plan: Increase Zoloft to 150mg cooper ly 01/31/2016 Appointment: Lita Barakat WPtel: [address] [place], [place] [phone] 01/26 confirmed `sl FOLLOW UP 01/31/2016 Patient Education: Patient Medication Summary Completed 01/31/2016 Visit Plan: Decrease citalopram to 20mg q AM for 1 week then stop Start zoloft 50mg q HS for 1 week then increase to 100mg q HS 12/30/2015 Appointment: Lita Barakat WPtel: [address] [place], [place] [phone] 12/28 confirmed~sl ACUTE ILLNESS 12/30/2015 Patient Education: Patient Medication Summary Completed 12/30/2015 Visit Plan: Check Neck US 12/16/2015 Appointment: Lita Barakat WPtel: [address] [place], [place] [phone] 12/14 lm ~sl 12/15 confirmed-sp FOLLOW UP 12/16/2015 Patient Education: Patient Medication Summary Completed 12/16/2015 Care Plan: US EXAM OF HEAD AND NECK LOIN C : 29416-3 Ordered 12/16/2015 Appointment: Stephanie Rios WPtel: [address] [place], [place] [phone] [place] 12/09 confirmed-sp 12/12 lm ~sl Patient r eturn call and stated he just plain forgot ~sl FOLLOW UP 12/13/2015 Visit Plan: Had changing lesions of fore head and left mastoid area removed earlier today. Follow-up in one week Will proceed with soft tissue ultrasound of neck/ left cervical lymph node if no improvement antibiotics Clindamycin 300mg PO TID 12/06/2015 Appointment: Stephanie Rios WPtel: [address] [place], [place] [phone] ACUTE ILLNESS 12/06/2015 Patient Education: Patient Medication Summary Completed 12/06/2015 Referral: Lisbeth Darby WPtel: [facility] [address] [phone] 11/18/15 called luther at [place] office and confirmed time and date of appointment with patient~sl Initiated 11/18/2015 Visit Plan: Referral to Dermatology for removal of facial skin lesions Cefdinir PO bid Topical Mupirocin to skin lesions bid 11/15/2015 Appointment: Stephanie Rios WPtel: [address] [place] [address] ACUTE ILLNESS 11/15/2015 Patient Education: Patient Medication Summary Completed 11/15/2015 Visit Plan: Continue current meds Accuch ecks daily Fwup with ophthamology as scheduled Will check lab in 3mos then fwup due to recent meds that will affect blood sugar 10/05/2015 Appointment: Lita Barakat WPtel: [address] [place], [place] [phone] 10/04/15 appt confirmed cn Annual Well Visit 08/2016 Patient Education: Patient Medication Summary Completed 10/05/2015 Visit Plan: Alexis -1 sample box given Return visit in 6 weeks for fasting labs Notify for worsening symptoms such as Increased redness, swelling, pain or drainage of Rt. knee 07/22/2015 Appointment: Stephanie Rios WPtel: [address] [place], [place] [phone] 07/21 vm left cn FOLLOW UP 07/22/2015 Patient Education: Patient Medication Summary Completed 07/22/2015 Visit Plan: Continue to change dressing twice daily and apply Mupirocin Complete Doxycycline as directed. Follow-up for worsening symptoms, such as increased swelling, redness or pain. 07/01/2015 Appointment: Stephanie Riostel: [address] [place], [place] [phone] [place] FOLLOW UP 07/01/2015 Patient Education: Patient Medication Summary Completed 07/01/2015 Visit Plan: Pressure dressing applied to draining wound left knee. Instructed to change dressing twice daily and continue Mupirocin topical Doxycycline PO bid x 10 days Wound culture obtained. Wound tissue sent to pathology Follow-up in 3 days 06/28/2015 Appointment: Stephanie Rios WPtel: [address] [place], [place] [phone] ACUTE ILLNESS 06/28/2015 Patient Education: Patient Medication Summary Completed 06/28/2015 Visit Plan: Complete antibiotics Follow- up for increased tenderness, swelling or drainage. 06/09/2015 Appointment: Stephanie Rios WPtel: [address] [place] [address] 06/08/15 FOLLOW UP 06/09/2015 Patient Education: Patient Medication Summary Completed 06/09/2015 Visit Plan: Apply pressure dressing toda y Continue antibiotics and topical Mupirocin Follow-up in 2 days Bursa drained from open area using pressure--serosanguinous drainage 06/07/2015 Appointment: Stephanie Rios WPtel: [address] [place], [place] [phone] 06/04/15 confirmed with patient FOLLOW UP 0 06/07/2015 Patient Education: Patient Medication Summary Completed 06/07/2015 Visit Plan: Wound culture Lt. knee Apply mupirocin to open wound bid Clindamycin 600 mg PO bid x 10 days Follow-up on Sunday06/03/2015 Appointment: Stephanie Rios WPtel: [address] [place] [address] ACUTE ILLNESS 06/03/2015 Patient Education: Patient Medication Summary Completed 06/03/2015 Visit Plan: Accuchecks daily Check CMP, HbA1C today Patient is noncompliant with meds and diet but patient says he is doing everything he is supposed to do Wants to try performomist instead of albuterol in SVN 06/01/2015 Appointment: Lita Barakat WPtel: [address] [place], [place] [address] 05/28 appt confirmed cn FOLLOW UP 06/01/20 15 Patient Education: Patient Medication Summary Completed 06/01/2015 Visit Plan: Change Breo Ellipta to Advai r 500/50 1 p BID this next month Continue turdoza Use albuterol prn Check CMP, HbA1C today Accuchecks daily Cryotherapy as above 02/25/2015 Appointment: Lita Barakat WPtel: [address] [place], [place] [phone] 02/24 appt confirmed and explained needed payment he said ok FOLLOW UP 02/25/2015 Patient Education: Patient Medication Summary Completed 02/25/2015 Referral: Lopez Chacon [address] [facility] C&D [id number] [place] Will put patient on cancellation list Initiated 12/08/2014 Appointment: Lita Barakat WPtel: [address] [place], [place] [phone] [facility] Follow Up 10/29/2014 Visit Plan: Finish prednisone Continue S VNs with albuterol QID See pulmonology and start Pulmonary rehab Once again discussed taking it easy this winter--that he is high risk for exacerbation 10/27/2014 Appointment: Lita Barakat WPtel: [address] [place], [place] [phone] FOLLOW UP 10/27/2014 Patient Education: Patient Medication Summary Completed 10/27/2014 Appointment: Lita Barakat WPtel: [address] [place], [place] [phone] FOLLOW UP 10/26/2014 Appointment: Stephanie Rios WPtel: [address] [place], [place] [phone] WORK IN 10/21/2014 Patient Education: Patient Medication Summary Completed 10/21/2014 Patient Education: Patient Medication Summary Completed 10/19/2014 Visit Plan: Continue oxygen and SVNS wit h duoneb Increase farxiga to 10mg daily Diflucan 100mg daily for 1week 10/06/2014 Appointment: Lita Barakat WPtel: [address] [place], [place] [phone] [facility] [place] time to 2:45pm FOLLOW UP 2014 Patient Education: Patient Medication Summary Completed 10/06/2014 Visit Plan: Finish omnicef Continue Breo BID and Turdoza Use SVNS with duoneb at least TID for next 2weeks then go to prn 09/21/2014 Appointment: Lita Barakat WPtel: [address] [place] [phone] [place] [address] Follow Up 09/21/2014 Patient Education: Patient Medication Summary Completed 09/21/2014 Patient Education: [facility] - Saving Auto[employer] - Ventolin HFA - 18+ - Dynamic Portal ID Completed 09/21/2014 Appointment: Stephanie Rios WPtel: [address] [place] [address] Scheduled by 09/07 patient rescheduled to 09/[address] [facility] Follow Up 09/08/2014 Patient Education: Patient Medication Summary Completed 09/08/2014 Appointment: Stephanie Rios WPtel: [address] [place], [place] [phone] FOLLOW UP 09/02/2014 Patient Education: Patient Medication Summary Completed 09/02/2014 Patient Education: [employer] - Antibi otics, Analgesics 18+, Oral Contraceptives F 18+ Completed 09/02/2014 Appointment: Lita Barakat WPtel: [address] [place] [phone] [facility] 08/27/2014 Patient Education: Patient Medication Summary Completed [...] prn sleep 08/10/2014 Appointment: Lita Barakat WPtel: [address] [place] [address] Annual Well Visit 08/10/2014 Patient Education: Patient Medication Summary Completed 08/10/2014 Appointment: Lita Barakat WPtel: [address] [place] [phone] LAB 08/05/2014 Patient Education: Patient Medication Summary Completed 08/05/2014 Visit Plan: ECHO results reviewed Contin ue Breo and Turdoza Pt starts PT this afternoon for back--has had one epidural with no help in pain 05/05/2014 Appointment: Lita Barakat WPtel: [address] [place] [address] FOLLOW UP 05/05/2014 Patient Education: Patient Medication Summary Completed 05/05/2014 Visit Plan: Continue Breo and Turdoza Camargo s heart tests scheduled next week Will see surgeon for removal of skin cancer to neck after done with cardiac workup 03/24/2014 Appointment: Lita Barakat WPtel: [address] [place] [address] FOLLOW UP 03/24/2014 Patient Education: Patient Medication Summary Completed 03/24/2014 Visit Plan: Proceed with cardiology eval uation as patient is has numerous risk factors for CAD Change Symbicort to Breo 1p BID and add Turdorza 1p BID Recheck in weeks Check 2-D ECHO and lexiscan 03/10/2014 Appointment: Lita Barakat WPtel: [address] [place], [place] [phone] FOLLOW UP 03/10/2014 Patient Education: Patient Medication Summary Completed 03/10/2014 Visit Plan: Shoulder injection as above Back brace to use when doing any lifting for stability 12/16/2013 Appointment: Lita Barakat WPtel: [address] [place] [phone] ACUTE ILLNESS 12/16/2013 Patient Education: Patient Medication Summary Completed 12/16/2013 Visit Plan: Continue symbicort and Turdo za Salt water gargles Omnicef 300mg 2 po daily for 1wk Phenergan with codeine 10/09/2013 Appointment: Lita Barakat WPtel: [address] [place], [place] [phone] WORK IN 10/09/2013 Patient Education: Patient Medication Summary Completed 10/09/2013 Appointment: Ruchi Buchanan WPtel: [address] [place] [address] ACUTE ILLNESS 09/18/2013 Patient Education: Patient Medication Summary Completed 09/18/2013 Visit Plan: Check on repeat CXR Finish a bx Start Tradjenta to replace metformin 08/13/2013 Appointment: Lita Barakat WPtel: [address] [place] [address] 08/12 Hospital Follow Up 08/13/2013 Patient Education: Patient Medication Summary Completed 08/13/2013 Visit Plan: Admit to hospital 08/06/2013 Appointment: Stephanie Rios WPtel: [address] [place] [address] ACUTE ILLNESS 08/06/2013 Patient Education: Patient Medication Summary Completed 08/06/2013 Visit Plan: Continue current meds Contin ue accuchecks daily Proceed with stress test due to high risk for CAD 07/16/2013 Appointment: Lita Barakat WPtel: [address] [place], [place] [phone] FOLLOW UP 07/16/2013 Patient Education: Patient Medication Summary Completed 07/16/2013 Appointment: Lita Barakat WPtel: [address] [place] [address] LAB 06/25/2013 Patient Education: Patient Medication Summary Completed 06/25/2013 Visit Plan: prednisone and azithromycin. Doing CBC and mycoplasma blood draw. Will continue inhaler and albuterol breathing treatments. 04/09/2013 Appointment: Kimberly Villalba WPtel: [address] [place] [address] ACUTE ILLNESS 04/09/2013 Patient Education: Patient Medication Summary Completed 04/09/2013 Appointment: Lita Barakat WPtel: [address] [place] [address] ACUTE ILLNESS 02/11/2013 Patient Education: Patient Medication Summary Completed 02/11/2013 Appointment: Ruchi Buchanan WPtel: [address] [place] [address] ACUTE ILLNESS 01/31/2013 Patient Education: Patient Medication Summary Completed 01/31/2013 Visit Plan: Cefdinir and medrol dose pac k. Codeine/guiaf cough syrup. Has colonoscopy on Sunday. Pt. is to notify if fever occurs or symptoms worsen. Hydration and rest. 01/20/2013 Appointment: Kimberly Villalba WPtel: [address] [place] [address] ACUTE ILLNESS 01/20/2013 Patient Education: Patient Medication Summary Completed 01/20/2013 Visit Plan: Scopalamine patch and vestib ular exercises 12/19/2012 Appointment: Lita Barakat WPtel: [address] [place] [address] ACUTE ILLNESS 12/19/2012 Patient Education: Patient Medication Summary Completed 12/19/2012 Visit Plan: Dr. Swanson consult if no impr ovement in hearing. Pt. reports he will notify if no better in one week. [facility] consult for skin lesion. 10/21/2012 Appointment: Kimberly Villalba WPtel: [address] [place] [address] ACUTE ILLNESS 10/21/2012 Patient Education: Patient Medication Summary Completed 10/21/2012 Appointment: Lita Barakat WPtel: [address] [place] [address] [place] LAB 09/19/2012 Patient Education: Patient Medication Summary Completed 09/19/2012 Visit Plan: Check fasting lab in AM--CMP , Lipids, HbA1C 09/18/2012 Appointment: Lita Barakat WPtel: [address] [place], [place] [phone] [place] FOLLOW UP 09/18/2012 Patient Education: Patient Medication Summary Completed 09/18/2012 Appointment: Lita Barakat WPtel: [address] [place], [place] [phone] appt time scheduled sooner FOLLOW UP 09/05 Visit Plan: Doxycycline and Prednisone I ncrease SVN to QID Add back Symbicort 160/4.5 2 p BID 08/28/2012 Appointment: Lita Barakat WPtel: [address] [place] [phone] [place] FOLLOW UP 08/28/2012 Patient Education: Patient Medication Summary Completed 08/28/2012 Appointment: Lita Barakat WPtel: [address] [place], [place] [phone] Annual Well Visit 07/10/2012 Patient Education: Patient Medication Summary Completed 07/10/2012 Visit Plan: Finish Z-pack Add Nasonex Ad d Meclizine Vestibular exercises Continue current meds and accuchecks Check lab and fwup in 4mos 05/09/2012 Appointment: Lita Barakattel: [address] [place] [phone] [place] number no longer works FOLLOW UP 2 Patient Education: Patient Medication Summary Completed 05/09/2012 Appointment: Lita Barakattel: [address] [place] [phone] [place] LAB 05/06/2012 Patient Education: Patient Medication Summary Completed 05/06/2012 Appointment: Lita Barakattel: [address] [place] [phone] [place] LAB 05/02/2012 Appointment: Lita Barakat WPtel: [address] [place] [phone] [place] INJECTION 02/05/2012 Patient Education: Patient Medication Summary Completed 02/05/2012 Visit Plan: cefdinir. Will focus on rest and fluids. Pt. reports he is using breathing treatments as needed. Pt. will monitor for worsening symptoms or fever. 10/02/2011 Appointment: Kimberly Villalba WPtel: [address] [place] [phone] ACUTE ILLNESS 10/02/2011 Patient Education: Patient Medication Summary Completed 10/02/2011 Appointment: Lita Barakat WPtel: [address] [place] [phone] [place] INJECTION 08/10/2011 Patient Education: Patient Medication Summary Completed 08/10/2011 Visit Plan: Continue current meds Restar t Advair Restart exercise Flu shot given 08/07/2011 Appointment: Lita Barakat WPtel: [address] [place] [address] FOLLOW UP 08/07/2011 Patient Education: Patient Medication Summary Completed 08/07/2011 Appointment: Lita Barakat WPtel: [address] [place] [phone] [place] LAB 07/26/2011 Patient Education: Patient Medication Summary Completed 07/26/2011 Visit Plan: ALEKSANDER Carmen Continue Metformin but change to BID Add Lantus 25u sc q PM BS readings in 1wk 04/03/2011 Appointment: Lita Barakat WPtel: [address] [place] [phone] [place] ACUTE ILLNESS 04/03/2011 Patient Education: Patient Medication Summary Completed 04/03/2011 Appointment: Lita Barakat WPtel: [address] [place] [phone] [place] INJECTION 01/19/2011 Patient Education: Patient Medication Summary Completed 01/19/2011 Appointment: Lita Barakat WPtel: [address] [place] [phone] [place] ACUTE ILLNESS 01/18/2011 Patient Education: Patient Medication Summary Completed 01/18/2011 Appointment: Lita Barakat WPtel: [address] [place] [phone] [place] INJECTION 12/21/2010 Patient Education: Patient Medication Summary Completed 12/21/2010 Appointment: Lita Barakat WPtel: [address] [place] [phone] [place] FOLLOW UP 12/19/2010 Patient Education: Patient Medication Summary Completed 12/19/2010 Appointment: Lita Barakat WPtel: [address] [place] [phone] [place] LAB 12/07/2010 Patient Education: Patient Medication Summary Completed 12/07/2010 Appointment: Kimberly Villalba WPtel: [address] [place] [address] ACUTE ILLNESS 04/05/2010 Patient Education: Patient Medication Summary Completed 04/05/2010 Appointment: Lita Barakat WPtel: [address] [place], [place] [phone] WORK IN 03/14/2010 Patient Education: Patient Medication Summary Completed 03/14/2010 Appointment: Lita Barakattel: [address] [place] [address] LAB 03/02/2010 Visit Plan: HbA1C in 3mos. Continue Accu checks BID alternating times. Switch lexapro to celexa 01/13/2010 Appointment: Lita Barakat WPtel: [address] [place] [phone] FOLLOW UP 01/13/2010 Patient Education: Patient Medication Summary Completed 01/13/2010 Appointment: Lita Barakat WPtel: [address] [place] [address] [place] FOLLOW UP 01/11/2010 Visit Plan: Pt. will continue the Avalox and Doxycycline regimen as prescribed the previous day. He has been advised to continue inhalers, breathing treatments and oxygen therapy for at least the weekend. Moderate activity without strenuous exercise. The pt. will seek immediate re-eval if his symptoms worsen. 12/23/2009 Appointment: Kimberly Villalba WPtel: [address] [place] [address] FOLLOW UP 12/23/2009 Patient Education: Patient Medication [...] tomorrow morning. 12/22/2009 Appointment: Kimberly Villalba WPtel: [address] [place] [address] ACUTE ILLNESS 12/22/2009 Patient Education: Patient Medication Summary Completed 12/22/2009 Appointment: Kimberly Villalba WPtel: [address] [place] [address] FOLLOW UP 12/21/2009 Appointment: Lita Barakat WPtel: [address] [place] [address] [place] INJECTION 12/16/2009 Patient Education: Patient Medication Summary Completed 12/16/2009 Appointment: Kimberly Villalba WPtel: [address] [place] [address] ACUTE ILLNESS 12/13/2009 Patient Education: Patient Medication Summary Completed 12/13/2009 Care Plan: X-RAY EXAM OF SHOULDER lt shoulder (pain ra diates across the shoulder) Hand carried orders to [facility] LOINC : 35010-5 Ordered 12/13/2009 Care Plan: X-RAY EXAM THORAC SPINE 2VWS Hand carried order LOINC : 72760-9 Ordered 12/13/2009 Care Plan: X-RAY EXAM RIBS UNI 2 VIEWS Posterior ribs of lt. side Pt. hand carries order to [facility] LOINC : 76702-0 Ordered 12/13/2009 Referral: José Miguel Swanson WPtel: [address] [address] [place] Referral Appointment Requested Referral: José Miguel Swanson WPtel: [address] [address] [place] Referral Appointment Requested Referral: Chandu Quarles WPtel: [address] [place] [address] Quarles for screening colonoscopy. P atient notified that [place] office will book appt with him Initiated Referral: Santosh Machado WPtel: [address] [place] [address] [place] Referral Appointment Requested Referral: José Miguel Swanson WPtel: [address] [address] [place] Referral Initiated Referral: Lopez Chacon [address] [facility] [place] [address] [place] Referral Initiated Referral: Demetrius Rodriguez WPtel: [address] [place] [address] [place] Referral Appointment Requested Referral: José Miguel Swanson WPtel: [address] [address] [place] Referral Appointment Requested Referral: José Miguel Swanson WPtel: [address] [address] [place] Referral Initiated Instructions Comment . Saline nasal flushes prn. Tylenol/Motr in prn headache. Notify if persists/symptoms worsening. . MRI at [facility] Hydrocodone 5.325 1 po q 4-6 hours prn pain #40 NR and Cyclobenzaprine (ERx) Continue warm packs for pain RTC if no improvement . May take OTC Tylenol/Ibuprofen as dire cted XRay at [facility] of left shoulder Tramadol 50mg 1 po q 6 hours prn pain called to [facility]. Sedation warning given (no driving, etc) RTC [...] exercise Flu shot given . DC actos DC [place] Continue Metformin but change to BID Add [...]
--- OUTSIDE RECORDS SUMMARY | 2019-12-31 00:32 | XMS REPORT | CCD ---
Author Author Leandro Barakat D.O. 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 Role Phone Lita Barakat D.O., PP Unavailable CCM Unavailable Summary Purpose Interface Exchange Insurance Providers Payer name Policy type / Coverage type Covered constitution party ID Effective Begin Date Effective End Date [employer] Medicare Part B [id number] 2018 Unknown Family history Brother Diagnosis Age At Onset Cancer Unknown Father Diagnosis Age At Onset Heart disease Unknown Mother Diagnosis Age At Onset Heart disease Unknown Social History Social History Element Codes Description Effective Dates Tobacco history SNOMED CT: 9856532 Former smoker quit 15 years ago 08/07/2011 [...] R07.9 06/22/2016 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: [...] Start Date Stop Date Status Fill Instructions hydrocodone 10 mg-acetaminophen 325 mg tablet RxNorm: 007810 1 Tablet(s) Oral Q4H as needed for pain 11/13/2019 No Stop Date Active Seroquel 50 mg tablet RxNorm: 696560 1 Tablet(s) Oral QPM as ne eded for sleep 10/07/2019 12/05/2019 Active ropinirole 4 mg tablet RxNorm: 356848 3 TABLET(S) BY [facility] DAILY AT BEDTIME FOR RESTLESS LEGS 09/29/2019 12/27/2019 Active Generic For:REQU IP 4 MG TABLET 09/29/2019 7:52:42 AM N O T I C E Last quantity doesn't match original quantity ipratropium 0.5 mg-albuterol 3 mg (2.5 mg base)/3 mL n ebulization soln RxNorm: 0578275 USE 1 VIAL IN NEBULIZER EVERY FOUR HOURS (THIS REPLACES ALBUTEROL SOLUTION) 09/26/2019 10/15/2019 Inactive Generic For:*DUO NEB 2.5-0.5 MG/3 ML SOLN 09/26/2019 9:08:53 AM ropinirole 4 mg tablet RxNorm: 222737 3 TABLET(S) BY [facility] DAILY AT BEDTIME FOR RESTLESS LEGS 09/26/2019 09/28/2019 Inactive Generic For:REQU IP 4 MG TABLET 09/26/2019 9:08:48 AM N O T I C E Last quantity doesn't match original quantity hydrocodone 10 mg-acetaminophen 325 mg tablet RxNorm: 581965 1 Tablet(s) Oral Q4H as needed for pain 09/09/2019 09/09/2019 Inactive hydrocodone 10 mg-acetaminophen 325 mg tablet RxNorm: 520007 1 Tablet(s) Oral Q4H as needed for pain 09/09/2019 09/08/2019 Inactive ondansetron HCl 4 mg tablet RxNorm: 729008 1 Tablet(s) Oral QPM for nausea 08/12/2019 10/10/2019 Inactive ipratropium 0.5 mg-albuterol 3 mg (2.5 mg base)/3 mL n ebulization soln RxNorm: 9956658 1 Unit Dose INH Q4H 08/12/2019 09/25/2019 Inactive replaces albuterol solution Augmentin 875 mg-125 mg tablet RxNorm: 079515 1 Tablet(s) Oral two times a day 08/07/2019 08/17/2019 Inactive prednisone 20 mg tablet RxNorm: 221493 1 Tablet(s) Oral QD 08/05/2008/04/2019 Inactive prednisone 20 mg tablet RxNorm: 951149 1 Tablet(s) Oral QD 08/05/2008/06/2019 Inactive Levaquin 500 mg tablet RxNorm: 393439 1 Tablet(s) Oral QD Replaces azithromycin (z-pack) 07/31/2019 08/05/2019 Inactive Levaquin 500 mg tablet RxNorm: 878410 1 Tablet(s) Oral QD Replaces azithromycin (z-pack) 07/21/2019 07/26/2019 Inactive Levaquin 500 mg tablet RxNorm: 683887 1 Tablet(s) Oral QD Replaces azithromycin (z-pack) 07/21/2019 07/20/2019 Inactive Zithromax Z-Gui 250 mg tablet RxNorm: 840823 Tablet(s) Oral 07/22/2019 Inactive Zithromax Z-Gui 250 mg tablet RxNorm: 257959 Tablet(s) Oral 07/15/2019 Inactive Symbicort 160 mcg-4.5 mcg/actuation HFA aerosol inhaler RxNo rm: 3298894 2 Puff(s) Inhalation two times a day 07/14/2019 07/14/2019 Inactive Tessalon Perles 100 mg capsule RxNorm: 003111 1 Capsule(s) Oral Q8H as needed 07/14/2019 08/06/2019 Inactive Seroquel 50 mg tablet RxNorm: 182154 1 Tablet(s) Oral QPM as ne eded for sleep 07/01/2019 10/06/2019 Inactive ondansetron HCl 4 mg tablet RxNorm: 309134 1 Tablet(s) Oral QPM for nausea 06/24/2019 07/24/2019 Inactive Seroquel 25 mg tablet RxNorm: 118586 1 Tablet(s) Oral every nig ht at bedtime 06/19/2019 06/18/2019 Inactive Seroquel 25 mg tablet RxNorm: 128032 1 Tablet(s) Oral every nig ht at bedtime 06/19/2019 06/30/2019 Inactive trazodone 150 mg tablet RxNorm: 806137 1/2 Tablet(s) PO QHS as needed for sleep 06/11/2019 06/17/2019 Inactive replaces PA on doxep in trazodone 150 mg tablet RxNorm: 157233 1/2 Tablet(s) PO QHS as needed for sleep 05/12/2019 06/11/2019 Inactive replaces PA on doxep in cyanocobalamin (vit B-12) 1,000 mcg/mL injection solution Rx Norm: 698625 1 injection weekly for 4 weeks 1 Milliliter(s) Inj 05/09/2019 No Stop Date Active Vitamin D3 5,000 unit tablet RxNorm: 133017 1 Tablet(s) PO QD 05/09 No Stop Date Active ferrous sulfate 325 mg (65 mg iron) tablet RxNorm: 027781 1 Tab let(s) PO QD 05/09/2019 No Stop Date Active magnesium oxide 400 mg (241.3 mg magnesium) tablet RxNorm: 1 60956 1 Tablet(s) PO QHS 05/09/2019 No Stop Date Active ropinirole 4 mg tablet RxNorm: 592503 3 TABLET(S) BY [facility] DAILY AT BEDTIME FOR RESTLESS LEGS 03/26/2019 06/23/2019 Inactive Generic For:REQU IP 4 MG TABLET 03/26/2019 11:23:36 AM N O T I C E Last quantity doesn't match original quantity pantoprazole 40 mg tablet,delayed release RxNorm: 908860 Tablet(s) TAKE 1 TABLET BY MOUTH DAILY FOR STOMACH 03/24/2019 06/21/2019 Inactive Gener ic For:PROTONIX 40MG TAB EC 01/03/2019 1:23:44 PM hydroxyzine HCl 10 mg tablet RxNorm: 181475 1 Tablet(s) PO BID as needed 03/24/2019 04/06/2019 Inactive ipratropium-albuterol 0.5 mg-3 mg(2.5 mg base)/3 mL ne bulization soln RxNorm: 9402348 1 Unit Dose INH Q4H 03/21/2019 No Stop Date Active replaces albuterol solution meclizine 12.5 mg tablet RxNorm: 042106 1 Tablet(s) PO BID as neede d 03/21/2019 No Stop Date Active losartan 100 mg tablet RxNorm: 041415 1 Tablet(s) PO QD replace s lisinopril 03/13/2019 09/08/2019 Inactive fluconazole 100 mg tablet RxNorm: 445338 1 Tablet(s) PO QD 03/13/2003/19/2019 Inactive nystatin 100,000 unit/mL oral suspension RxNorm: 406398 5 Unit( s) PO QID 03/13/2019 03/26/2019 Inactive tramadol 50 mg tablet RxNorm: 816481 1 Tablet(s) PO TID as needed for pain TAKE 2 TABS OF EXTRA STRENGTH TYLENOL WITH EACH DOSE 03/10/2019 04/06/2019 Inactive Generic For:*ULTRAM 50 MG TABLET 01/15/2019 4:55:26 PM Sinemet CR 50 mg-200 mg tablet,extended release RxNorm: 8343 41 1 Tablet(s) PO TID 02/26/2019 08/24/2019 Inactive Generic For:*SIN EMET CR 50/200 TABLET SA 07/08/2018 3:09:11 PM trazodone 150 mg tablet RxNorm: 347631 1/2 Tablet(s) PO QHS as needed for sleep 02/13/2019 02/12/2019 Inactive trazodone 150 mg tablet RxNorm: 613554 1/2 Tablet(s) PO QHS as needed for sleep 02/13/2019 02/25/2019 Inactive replaces PA on doxep in doxepin 10 mg capsule RxNorm: 5375145 1-2 Capsule(s) PO QHS prn sleep 02/13/2019 02/13/2019 Inactive Novolog U-100 Insulin aspart 100 unit/mL subcutaneous soluti on RxNorm: 391633 INJECT 10 UNIT(S) SUBCUTANEOUSLY BEFORE MEALS 01/31/2019 05/30/2019 In active 01/31/2019 1:39:10 PM ipratropium-albuterol 0.5 mg-3 mg(2.5 mg base)/3 mL ne bulization soln RxNorm: 6295867 1 Unit Dose INH Q4H 01/17/2019 03/20/2019 Inactive replaces albuterol solution tramadol 50 mg tablet RxNorm: 193739 1 Tablet(s) PO TID as needed for pain TAKE 2 TABS OF EXTRA STRENGTH TYLENOL WITH EACH DOSE 01/15/2019 02/03/2019 Inactive Generic For:*ULTRAM 50 MG TABLET 01/15/2019 4:55:26 PM Sinemet CR 50 mg-200 mg tablet,extended release RxNorm: 8343 41 1 Tablet(s) PO BID 01/03/2019 02/25/2019 Inactive Generic For:*SIN EMET CR 50/200 TABLET SA 07/08/2018 3:09:11 PM losartan 100 mg tablet RxNorm: 142717 1 Tablet(s) PO QD replace s lisinopril 01/03/2019 03/12/2019 Inactive Symbicort 160 mcg-4.5 mcg/actuation HFA aerosol inhaler RxNo rm: 0100997 2 Puff(s) INH BID 01/03/2019 01/02/2019 Inactive pantoprazole 40 mg tablet,delayed release RxNorm: 082656 TAKE 1 TABLET BY MOUTH DAILY FOR STOMACH 01/03/2019 03/23/2019 Inactive Generic For:WI OTONIX 40MG TAB EC 01/03/2019 1:23:44 PM nystatin 100,000 unit/mL oral suspension RxNorm: 331007 Unit(s) 5 Unit(s) PO QID swish and spit 01/02/2019 11/11/2019 Inactive Incruse Ellipta 62.5 mcg/actuation powder for inhalation RxN orm: 9246302 1 Capsule(s) INH QD 12/25/2018 No Stop Date Active Tessalon Perles 100 mg capsule RxNorm: 952558 1 Capsule(s) PO T ID for cough 12/25/2018 02/25/2019 Inactive Medrol (Gui) 4 mg tablets in a dose pack RxNorm: 042968 Tablet(s) PO Use as directed 12/23/2018 01/02/2019 Inactive Levemir FlexTouch U-100 Insulin 100 unit/mL (3 mL) sub cutaneous pen RxNorm: 789117 20 Unit(s) SQ QD with pen needles 12/13/2018 05/11/2019 Inactiv e prednisone 20 mg tablet RxNorm: 207151 1 Tablet(s) PO QD 12/12/2018 0 12/11/2018 Inactive prednisone 20 mg tablet RxNorm: 895974 1 Tablet(s) PO QD 12/12/2018 0 12/16/2018 Inactive promethazine 6.25 mg-codeine 10 mg/5 mL syrup RxNorm: 957834 5 Milliliter(s) PO QHS as needed for cough 12/09/2018 12/18/2018 Inactive cefdinir 300 mg capsule RxNorm: 962467 1 Capsule(s) PO BID 12/10/19 19 12/18/2018 Inactive fluconazole 100 mg tablet RxNorm: 597185 1 Tablet(s) PO QD 12/06/1912/08/2018 Inactive ropinirole 4 mg tablet RxNorm: 510597 3 Tablet(s) PO QHS for re stless legs 12/04/2018 03/03/2019 Inactive Novolog U-100 Insulin aspart 100 unit/mL subcutaneous soluti on RxNorm: 591680 INJECT 10 UNIT(S) SUBCUTANEOUSLY BEFORE MEALS 12/04/2018 01/30/2019 In active 12/04/2018 10:02:42 AM nystatin 100,000 unit/mL oral suspension RxNorm: 515365 5 Unit(s) PO QID swish and spit 11/25/2018 12/18/2018 Inactive ropinirole 4 mg tablet RxNorm: 877475 3 Tablet(s) PO QHS for re stless legs 11/04/2018 12/03/2018 Inactive prednisone 20 mg tablet RxNorm: 357537 1 Tablet(s) PO BID 10/23/2018 10/29/2018 Inactive ropinirole 4 mg tablet RxNorm: 293606 3 Tablet(s) PO QHS for re stless legs 10/14/2018 11/04/2018 Inactive pantoprazole 40 mg tablet,delayed release RxNorm: 842404 1 Tablet(s) PO QD forstomach 10/10/2018 01/02/2019 Inactive Symbicort 160 mcg-4.5 mcg/actuation HFA aerosol inhaler RxNo rm: 8332941 2 Puff(s) INH BID 10/10/2018 01/03/2019 Inactive Novolog U-100 Insulin aspart 100 unit/mL subcutaneous soluti on RxNorm: 197369 INJECT 10 UNIT(S) SUBCUTANEOUSLY BEFORE MEALS 10/10/2018 12/03/2018 In active 10/10/2018 11:30:01 AM Sinemet CR 50 mg-200 mg tablet,extended release RxNorm: 8343 41 1 Tablet(s) PO BID 09/26/2018 01/03/2019 Inactive Generic For:*SIN EMET CR 50/200 TABLET SA 07/08/2018 3:09:11 PM ropinirole 4 mg tablet RxNorm: 955255 2 Tablet(s) PO QHS for re stless legs 09/18/2018 10/13/2018 Inactive metformin ER 1,000 mg tablet,extended release 24hr RxNorm: 1 150870 1 Tablet(s) PO BID 09/09/2018 12/18/2018 Inactive ropinirole 4 mg tablet RxNorm: 604784 2 Tablet(s) PO QHS for re stless legs 08/21/2018 09/17/2018 Inactive doxycycline hyclate 100 mg capsule RxNorm: 6894428 1 Capsule(s) PO BID 08/07/2018 08/13/2018 Inactive ropinirole 4 mg tablet RxNorm: 976836 1 Tablet(s) PO QHS replac es 1mg dose 08/07/2018 08/20/2018 Inactive ropinirole 2 mg tablet RxNorm: 561059 TAKE 3 TABLETS BY MOUTH DAILY AT BEDTIME DO NOT EXCEED 3 TABLETS PER DAY!!!! 07/31/2018 08/06/2018 Inactive Generic For:REQUIP 2 MG TABLET 07/30/2018 3:50:28 PM Symbicort 160 mcg-4.5 mcg/actuation HFA aerosol inhaler RxNo rm: 8195307 2 Puff(s) INH BID 07/12/2018 10/09/2018 Inactive Sinemet CR 50 mg-200 mg tablet,extended release RxNorm: 8343 41 TAKE 1 TABLET BY MOUTH TWICE DAILY 07/08/2018 09/26/2018 Inactive Generic For:*S INEMET CR 50/200 TABLET SA 07/08/2018 3:09:11 PM losartan 100 mg tablet RxNorm: 117509 1 Tablet(s) PO QD replace s lisinopril 06/17/2018 12/13/2018 Inactive Novolog U-100 Insulin aspart 100 unit/mL subcutaneous soluti on RxNorm: 101073 10 Unit(s) SQ AC 06/17/2018 10/09/2018 Inactive albuterol sulfate 2.5 mg/3 mL (0.083 %) solution for n ebulization RxNorm: 407370 Milliliter(s) INH USE 1 VIAL IN NEBULIZE R EVERY FOUR HOURS NEEDED FOR WHEEZING OR SHORTNESS OF BREATH 06/13/2018 01/16/2019 Inactive Generic For:*PROVENTIL 0.83 MG/ML SOLUTN 06/13/2013 2:04:46 PM ropinirole 2 mg tablet RxNorm: 784473 3 Tablet(s) PO QH S DO NOT EXCEED 6MG (3 TABLETS) PER DAY!!!! 06/13/2018 07/31/2018 Inactive atorvastatin 40 mg tablet RxNorm: 844968 Tablet(s) TAKE 1 TABLET BY MOUTH EVERY DAY 05/13/2018 12/18/2018 Inactive Generic For:LIPI TOR 40MG TAB 05/01/2018 8:37:31 AM Sinemet CR 50 mg-200 mg tablet,extended release RxNorm: 8343 41 1 Tablet(s) PO BID 05/08/2018 07/06/2018 Inactive Lidocaine Viscous 2 % mucosal solution RxNorm: 8612901 5 Milliliter(s) PO QID as needed 05/02/2018 08/06/2018 Inactive Diflucan 100 mg tablet RxNorm: 283132 1 Tablet(s) PO QD 05/02/2018 Inactive atorvastatin 40 mg tablet RxNorm: 387171 TAKE 1 TABLET BY MOUTH EVERY DAY 05/01/2018 05/13/2018 Inactive Generic For:LIPITOR 40MG TAB 05/01/2018 8:37:31 AM nystatin 100,000 unit/mL oral suspension RxNorm: 938665 5 Unit(s) PO QID (before meals and at bedtime) 04/24/2018 04/30/2018 Inactive Ventolin HFA 90 mcg/actuation aerosol inhaler RxNorm: 542485 2 Puff(s) INH Q4H as needed one inhaler for home and one inhaler for car 04/23/201812/18 Inactive Mucinex 600 mg tablet, extended release RxNorm: 119700 1 Tablet(s) PO BID for congestion 04/22/2018 05/21/2018 Inactive prednisone 10 mg tablet RxNorm: 961124 Tablet(s) PO as directeds 08/06/2018 Inactive ropinirole 2 mg tablet RxNorm: 845107 3 Tablet(s) PO QH S DO NOT EXCEED 6MG (3 TABLETS) PER DAY!!!! 04/09/2018 05/08/2018 Inactive gabapentin 300 mg capsule RxNorm: 670982 1-2 Capsule(s) PO QHS 02/201804/08/2018 Inactive ropinirole 2 mg tablet RxNorm: 145269 1 Tablet(s) PO QHS 03/28/2018 0 04/08/2018 Inactive gabapentin 300 mg capsule RxNorm: 722942 1-2 Capsule(s) PO QHS 02/2303/29/2018 Inactive gabapentin 300 mg capsule RxNorm: 529679 1-2 Capsule(s) PO QHS 02/2203/13/2018 Inactive gabapentin 300 mg capsule RxNorm: 705248 2 Capsule(s) PO QHS 201703/11/2018 Inactive ropinirole 2 mg tablet RxNorm: 936007 1 Tablet(s) PO QHS 02/28/2018 0 03/28/2018 Inactive ropinirole 2 mg tablet RxNorm: 484482 1 Tablet(s) PO QHS 02/28/2018 0 02/27/2018 Inactive gabapentin 300 mg capsule RxNorm: 383722 1 Capsule(s) PO QHS 201702/27/2018 Inactive pantoprazole 40 mg tablet,delayed release RxNorm: 675246 1 Tablet(s) PO QD forstomach 01/23/2018 05/22/2018 Inactive Voltaren 1 % topical gel RxNorm: 279890 1 Gram(s) TOP QID to ri ght knee 01/23/2018 02/04/2018 Inactive metformin ER 500 mg tablet,extended release 24hr RxNorm: 860 975 2 Tablet(s) PO BID 01/09/2018 12/08/2018 Inactive Requip 1 mg tablet RxNorm: 732648 1 Tablet(s) PO QHS 01/09/201802/27 Inactive prednisone 20 mg tablet RxNorm: 651060 1 Tablet(s) PO T ID for 3 days then 1 po BID for 3 days then one daily for 3 days 01/02/2018 02/03/2018 Inactiv e Levaquin 500 mg tablet RxNorm: 155340 1 Tablet(s) PO QD 01/02/2018 Inactive ProAir HFA 90 mcg/actuation aerosol inhaler RxNorm: 375723 2 Puff(s) INH Q4H as needed 12/28/2017 No Stop Date Active please switch to ventolin if insurance doesn't cover montelukast 10 mg tablet RxNorm: 975049 1 Tablet(s) PO QD 12/28/2017 02/03/2018 Inactive Levaquin 500 mg tablet RxNorm: 547632 1 Tablet(s) PO QD 12/21/2017 Inactive ProAir HFA 90 mcg/actuation aerosol inhaler RxNorm: 078001 2 Puff(s) INH Q4H as needed 12/21/2017 12/27/2017 Inactive please switch to ventolin if insurance doesn't cover doxycycline hyclate 100 mg tablet RxNorm: 817035 1 Tablet(s) PO BID 12/17/2017 12/26/2017 Inactive Levemir FlexTouch U-100 Insulin 100 unit/mL (3 mL) sub cutaneous pen RxNorm: 023772 20 Unit(s) SQ QD with pen needles---Due for labs 12/11/2017 02/03/2018 Inactive Requip 1 mg tablet RxNorm: 260468 1 Tablet(s) PO QHS 12/10/201712/09 Inactive Requip 1 mg tablet RxNorm: 834360 1 Tablet(s) PO QHS 12/10/201701/09 Inactive albuterol sulfate 2.5 mg/3 mL (0.083 %) solution for n ebulization RxNorm: 809055 Milliliter(s) INH USE 1 VIAL IN NEBULIZE R EVERY FOUR HOURS NEEDED FOR WHEEZING OR SHORTNESS OF BREATH 12/05/2017 06/13/2018 Inactive Generic For:*PROVENTIL 0.83 MG/ML SOLUTN 06/13/2013 2:04:46 PM Tudorza Pressair 400 mcg/actuation breath activated RxNorm: 1518566 1 Puff(s) INH BID 12/03/2017 12/10/2017 Inactive Levemir FlexTouch U-100 Insulin 100 unit/mL (3 mL) sub cutaneous pen RxNorm: 861966 10 Unit(s) SQ QD with pen needles---Due for labs 11/16/2017 12/10/2017 Inactive Zofran ODT 4 mg disintegrating tablet RxNorm: 404252 1 Tablet(s) PO Q4H as needed for nausea 10/17/2017 02/04/2018 Inactive Efudex 5 % topical cream RxNorm: 861831 Application TOP QD prn to precancer skin lesions 10/17/2017 02/03/2018 Inactive Sinemet CR 50 mg-200 mg tablet,extended release RxNorm: 8343 41 1 Tablet(s) PO BID 10/17/2017 02/05/2018 Inactive Sinemet CR 50 mg-200 mg tablet,extended release RxNorm: 8343 41 1 Tablet(s) PO QHS 09/25/2017 10/16/2017 Inactive gabapentin 600 mg tablet RxNorm: 546337 1 Tablet(s) PO BID 08/15/20 17 08/14/2017 Inactive gabapentin 600 mg tablet RxNorm: 221035 1 Tablet(s) PO BID 08/15/20 17 12/10/2017 Inactive Novolog U-100 Insulin aspart 100 unit/mL subcutaneous soluti on RxNorm: 006601 10 Unit(s) SQ AC 08/15/2017 02/03/2018 Inactive Novolog 100 unit/mL subcutaneous solution RxNorm: 316156 10 Uni t(s) SQ AC 08/13/2017 08/14/2017 Inactive prednisone 20 mg tablet RxNorm: 081513 2 Tablet(s) PO QD 08/02/201710/04/2016 Inactive gabapentin 600 mg tablet RxNorm: 498148 Tablet(s) 1 Tab let(s) PO QHS replaces 300mg dose 07/09/2017 08/14/2017 Inactive Breo Ellipta 100 mcg-25 mcg/dose powder for inhalation RxNor m: 1890586 1 Unit Dose INH QD 07/02/2017 08/30/2017 Inactive Tudorza Pressair 400 mcg/actuation breath activated RxNorm: 0378984 1 Puff(s) INH BID 06/18/2017 12/02/2017 Inactive gabapentin 600 mg tablet RxNorm: 443715 1 Tablet(s) PO QHS repl aces 300mg dose 06/14/2017 07/08/2017 Inactive metformin ER 1,000 mg tablet,extended release 24hr RxNorm: 1 997460 1 Tablet(s) PO BID 05/29/2017 01/08/2018 Inactive cyclobenzaprine 5 mg tablet RxNorm: 113865 1 Tablet(s) PO TID 05/2906/07/2017 Inactive metformin ER 1,000 mg tablet,extended release 24hr RxNorm: 8 95359 1 Tablet(s) PO BID 05/25/2017 05/28/2017 Inactive metformin ER 1,000 mg tablet,extended release 24hr RxNorm: 8 70772 1 Tablet(s) PO BID 05/22/2017 05/24/2017 Inactive Amaryl 2 mg tablet RxNorm: 226952 1 Tablet(s) PO BID 05/01/201702/03 Inactive glimepiride 2 mg tablet RxNorm: 173117 1 Tablet(s) PO BID 04/19/2017 02/03/2018 Inactive ferrous sulfate 325 mg (65 mg iron) tablet RxNorm: 902974 1 Tab let(s) PO QHS 04/17/2017 02/03/2018 Inactive Requip 4 mg tablet RxNorm: 981342 1 Tablet(s) PO BID 04/12/201704/11 Inactive Requip 4 mg tablet RxNorm: 437096 1 Tablet(s) PO BID 04/12/201704/15 Inactive Levemir FlexTouch 100 unit/mL (3 mL) subcutaneous insulin pe n RxNorm: 411456 10 Unit(s) SQ QD with pen needles---Due for labs 04/05/2017 11/15/2017 In active Silenor 3 mg tablet RxNorm: 363310 1 Tablet(s) PO QHS 04/05/201709/25 Inactive ropinirole 4 mg tablet RxNorm: 053790 1 Tablet(s) PO QHS 03/29/2017 0 04/01/2017 Inactive ropinirole 4 mg tablet RxNorm: 615722 1 Tablet(s) PO QHS 03/29/2017 0 03/28/2017 Inactive Requip 4 mg tablet RxNorm: 656085 1 Tablet(s) PO QHS 03/28/201704/01 Inactive gabapentin 600 mg tablet RxNorm: 906043 1 Tablet(s) PO QHS repl aces 300mg dose 03/28/2017 04/15/2017 Inactive Requip 4 mg tablet RxNorm: 944723 1 Tablet(s) PO QHS 03/23/201703/27 Inactive gabapentin 600 mg tablet RxNorm: 829205 1 Tablet(s) PO QHS 03/13/20 17 03/12/2017 Inactive gabapentin 600 mg tablet RxNorm: 390020 1 Tablet(s) PO QHS 03/13/20 17 03/27/2017 Inactive gabapentin 300 mg capsule RxNorm: 641162 1 Capsule(s) PO QPM 201603/12/2017 Inactive Generic For:NEURONTIN 300 MG CAPSULE 01/22/2017 10:10:39 AM losartan 100 mg tablet RxNorm: 558206 1 Tablet(s) PO QD replace s lisinopril 02/21/2017 06/17/2018 Inactive gabapentin 300 mg capsule RxNorm: 841131 TAKE 1 CAPSULE BY MOUT H EVERY EVENING 01/22/2017 02/21/2017 Inactive Generic For:NEURONTI N 300 MG CAPSULE 01/22/2017 10:10:39 AM gabapentin 300 mg capsule RxNorm: 224461 1 Capsule(s) PO QPM 201601/21/2017 Inactive Requip 4 mg tablet RxNorm: 768040 1 Tablet(s) PO QHS 12/21/201603/20 Inactive Effient 10 mg tablet RxNorm: 502431 1 Tablet(s) PO QD 12/12/201612/23 Inactive gabapentin 300 mg capsule RxNorm: 058266 1 Capsule(s) PO QPM 201612/03/2016 Inactive gabapentin 300 mg capsule RxNorm: 596436 1 Capsule(s) PO QPM 201612/13/2016 Inactive Requip 4 mg tablet RxNorm: 978358 1 Tablet(s) PO QHS 11/28/201612/21 Inactive atorvastatin 40 mg tablet RxNorm: 873878 Tablet(s) 1 Tablet(s) PO Q D 11/22/2016 08/18/2017 Inactive atorvastatin 40 mg tablet RxNorm: 520165 1 Tablet(s) PO QD 11/23/19 17 11/21/2016 Inactive ropinirole 1 mg tablet RxNorm: 304354 2.5 Tablet(s) PO QPM for legs/sleep 11/14/2016 11/27/2016 Inactive nystatin 100,000 unit/mL oral suspension RxNorm: 529769 5 Unit(s) PO QID swish and spit 10/31/2016 02/03/2018 Inactive fluconazole 100 mg tablet RxNorm: 789836 1 Tablet(s) PO QD 10/31/19 17 11/09/2016 Inactive doxycycline hyclate 100 mg capsule RxNorm: 7289781 1 Capsule(s) PO BID 10/03/2016 10/12/2016 Inactive Levemir FlexTouch 100 unit/mL (3 mL) subcutaneous insulin pe n RxNorm: 086851 10 Unit(s) SQ QD with pen needles 09/18/2016 04/04/2017 Inactive amitriptyline 25 mg tablet RxNorm: 486126 1 Tablet(s) P O QHS as needed for sleep 09/04/2016 10/17/2016 Inactive ropinirole 1 mg tablet RxNorm: 814996 1.5 Tablet(s) PO QPM for legs/sleep 09/04/2016 11/13/2016 Inactive amitriptyline 25 mg tablet RxNorm: 884620 1 Tablet(s) P O QHS as needed for sleep 08/22/2016 09/03/2016 Inactive clopidogrel 75 mg tablet RxNorm: 292088 1 Tablet(s) PO QD 08/10/2016 10/17/2016 Inactive Zoloft 100 mg tablet RxNorm: 597085 2 Tablet(s) PO QHS 08/10/2016 Inactive atorvastatin 40 mg tablet RxNorm: 076600 1 Tablet(s) PO QD 08/10/20 16 10/17/2016 Inactive ropinirole 1 mg tablet RxNorm: 229231 1 Tablet(s) PO QPM for le gs/sleep 08/10/2016 09/03/2016 Inactive losartan 100 mg tablet RxNorm: 449585 1 Tablet(s) PO QD replace s lisinopril 07/20/2016 02/21/2017 Inactive Zofran 4 mg tablet RxNorm: 662007 1 Tablet(s) PO Q4H as needed for nausea 07/06/2016 10/17/2016 Inactive Flagyl 500 mg tablet RxNorm: 417370 1 Tablet(s) PO TID 07/06/2016 Inactive Plavix 75 mg tablet RxNorm: 609601 1 Tablet(s) PO QD 06/08/201607/05 Inactive isosorbide mononitrate ER 30 mg tablet,extended release 24 h r RxNorm: 417745 1 Tablet(s) PO QAM 06/08/2016 08/09/2016 Inactive atorvastatin 40 mg tablet RxNorm: 214435 1 Tablet(s) PO QD 06/08/20 16 08/09/2016 Inactive hydrochlorothiazide 12.5 mg tablet RxNorm: 095129 1 Tablet(s) PO QA M 06/08/2016 07/05/2016 Inactive metformin ER 1,000 mg tablet,extended release 24hr RxNorm: 8 81819 1 Tablet(s) PO BID 06/08/2016 09/05/2016 Inactive metoprolol tartrate 25 mg tablet RxNorm: 383437 1/2 Tablet(s) PO BI D 06/08/2016 08/09/2016 Inactive Zoloft 100 mg tablet RxNorm: 482261 2 Tablet(s) PO QHS 04/03/2016 Inactive metformin ER 1,000 mg tablet,extended release 24hr RxNorm: 8 02172 Tablet(s) 1 Tablet(s) PO QD 03/30/2016 12/18/2018 Inactive Levemir FlexTouch 100 unit/mL (3 mL) subcutaneous insulin pe n RxNorm: 645207 10 Unit(s) SQ QD 03/09/2016 03/08/2016 Inactive Levemir FlexTouch 100 unit/mL (3 mL) subcutaneous insulin pe n RxNorm: 519342 10 Unit(s) SQ QD with pen needles 03/09/2016 03/20/2016 Inactive Mobic 15 mg tablet RxNorm: 801686 1 Tablet(s) PO QD for foot pain 0 02/17/2016 03/17/2016 Inactive Zoloft 100 mg tablet RxNorm: 272486 1 1/2 Tablet(s) PO QHS 01/31/20 16 04/02/2016 Inactive omeprazole 20 mg capsule,delayed release RxNorm: 397621 TAKE 2 CAPSULES BY MOUTH EVERY DAY 01/12/2016 08/09/2016 Inactive Generic For:*CHERYL LOSEC 20 MG CAPSULE 01/12/2016 8:58:34 AM Zoloft 100 mg tablet RxNorm: 525414 1/2 Tablet(s) PO QH S for 1 week then 1 tablet po q HS 12/30/2015 01/27/2016 Inactive Ventolin HFA 90 mcg/actuation aerosol inhaler RxNorm: 594961 2 Puff(s) INH QID as needed for shortness of breath 12/30/2015 02/03/2018 Inactive [AttnRPh: Saving apply/adjudicate RxGRP:SG20 RxBIN:[id number] RxPCN: ID#:[id number]] metformin ER 1,000 mg tablet,extended release 24hr RxNorm: 8 38637 1 Tablet(s) PO QD 12/20/2015 03/18/2016 Inactive clindamycin 300 mg capsule RxNorm: 724407 1 Capsule(s) PO TID 12/0512/15/2015 Inactive mupirocin 2 % topical cream RxNorm: 944986 TOP to facial lesion s twice daily 11/15/2015 12/15/2015 Inactive cefdinir 300 mg capsule RxNorm: 771657 1 Capsule(s) PO BID 11/15/19 16 11/24/2015 Inactive Medrol (Gui) 4 mg tablets in a dose pack RxNorm: 655232 Tablet(s) PO as directed 10/11/2015 12/15/2015 Inactive albuterol sulfate 2.5 mg/3 mL (0.083 %) solution for n ebulization RxNorm: 341480 INH USE 1 VIAL IN NEBULIZER EVERY FOUR H OURS NEEDED FOR WHEEZING OR SHORTNESS OF BREATH 10/05/2015 10/04/2015 Inactive Generic For:*PRO VENTIL 0.83 MG/ML SOLUTN 06/13/2013 2:04:46 PM doxycycline hyclate 100 mg capsule RxNorm: 2727765 1 Capsule(s) PO BID 10/05/2015 10/14/2015 Inactive albuterol sulfate 2.5 mg/3 mL (0.083 %) solution for n ebulization RxNorm: 596251 Milliliter(s) INH USE 1 VIAL IN NEBULIZE R EVERY FOUR HOURS NEEDED FOR WHEEZING OR SHORTNESS OF BREATH Dx: J44.9 10/05/2015 12/05/2017 Inacti ve Generic For:*PROVENTIL 0.83 MG/ML SOLUTN 06/13/2013 2:04:46 PM albuterol sulfate 2.5 mg/3 mL (0.083 %) solution for n ebulization RxNorm: 726721 3 Milliliter(s) INH USE 1 VIAL IN NEBULI ZER EVERY FOUR HOURS NEEDED FOR WHEEZING OR SHORTNESS OF BREATH 09/06/2015 10/04/2015 Inactive Generic For:*PROVENTIL 0.83 MG/ML SOLUTN 06/13/2013 2:04:46 PM Tradjenta 5 mg tablet RxNorm: 0133936 2 Tablet(s) PO QD 07/22/2015 Inactive albuterol sulfate 2.5 mg/3 mL (0.083 %) solution for n ebulization RxNorm: 393430 3 Milliliter(s) INH USE 1 VIAL IN NEBULI ZER EVERY FOUR HOURS NEEDED FOR WHEEZING OR SHORTNESS OF BREATH 06/29/2015 09/05/2015 Inactive Generic For:*PROVENTIL 0.83 MG/ML SOLUTN 06/13/2013 2:04:46 PM albuterol sulfate 2.5 mg/3 mL (0.083 %) solution for n ebulization RxNorm: 186739 Milliliter(s) INH USE 1 VIAL IN NEBULIZE R EVERY FOUR HOURS NEEDED FOR WHEEZING OR SHORTNESS OF BREATH 06/29/2015 12/04/2017 Inactive Generic For:*PROVENTIL 0.83 MG/ML SOLUTN 06/13/2013 2:04:46 PM doxycycline hyclate 100 mg tablet RxNorm: 709153 1 Tablet(s) PO BID 06/28/2015 07/07/2015 Inactive losartan 100 mg tablet RxNorm: 581819 1 Tablet(s) PO QD -replac es lisinopril 06/14/2015 09/05/2015 Inactive metformin ER 1,000 mg tablet,extended release 24hr RxNorm: 8 73003 1 Tablet(s) PO QD 06/14/2015 09/11/2015 Inactive losartan 100 mg tablet RxNorm: 686812 1 Tablet(s) PO QD -replac es lisinopril 06/14/2015 12/10/2015 Inactive Zocor 20 mg tablet RxNorm: 853697 Tablet(s) Tablet(s) 1 Tablet(s) PO QD -needs lipids labs 06/14/2015 06/14/2015 Inactive atorvastatin 40 mg tablet RxNorm: 132538 1 Tablet(s) PO QD repl aces simvastatin 06/14/2015 12/10/2015 Inactive loratadine 10 mg tablet RxNorm: 745575 Tablet(s) 1 Tablet(s) PO QD for drainage 06/14/2015 06/07/2016 Inactive Celexa 40 mg tablet RxNorm: 219264 1 Tablet(s) PO QD TA KE ONE (1) TABLET BY MOUTH DAILY 06/14/2015 12/29/2015 Inactive Generic For:HARJINDER XA 40 MG TABLET clindamycin 300 mg capsule RxNorm: 933352 2 Capsule(s) PO BID 06/0306/12/2015 Inactive metformin ER 1,000 mg tablet,extended release 24hr RxNorm: 8 86896 1 Tablet(s) PO QD 06/03/2015 06/02/2015 Inactive metformin ER 1,000 mg tablet,extended release 24hr RxNorm: 8 99865 1 Tablet(s) PO QD 06/03/2015 06/13/2015 Inactive mupirocin 2 % topical ointment RxNorm: 393029 TOP apply to open lesion of knee twice daily 06/03/2015 01/30/2016 Inactive Zocor 20 mg tablet RxNorm: 048560 Tablet(s) 1 Tablet(s ) PO QD -needs lipids labs 05/13/2015 06/13/2015 Inactive Celexa 40 mg tablet RxNorm: 008932 1 Tablet(s) PO QD TA KE ONE (1) TABLET BY MOUTH DAILY 05/13/2015 06/13/2015 Inactive Generic For:HARJINDER XA 40 MG TABLET Zocor 20 mg tablet RxNorm: 341513 Tablet(s) 1 Tablet(s ) PO QD -needs lipids labs 02/23/2015 03/24/2015 Inactive loratadine 10 mg tablet RxNorm: 229976 1 Tablet(s) PO QD for dr saenz 12/24/2014 06/13/2015 Inactive Zocor 20 mg tablet RxNorm: 472316 1 Tablet(s) PO QD -needs lipi ds labs 11/17/2014 02/23/2015 Inactive Celexa 40 mg tablet RxNorm: 490834 1 Tablet(s) PO QD 1 Tablet(s) PO QD 1 Tablet(s) PO QD Generic OKAY 11/11/2014 05/13/2015 Inactive Zocor 20 mg tablet RxNorm: 755868 1 Tablet(s) PO QD -needs lipi ds labs 11/11/2014 11/16/2014 Inactive omeprazole 20 mg capsule,delayed release RxNorm: 992332 2 Capsule(s) PO QD TAKE 2 CAPSULES BY MOUTH DAILY 10/27/2014 04/24/2015 Inactive Generi c For:*PRILOSEC 20 MG CAPSULE trazodone 50 mg tablet RxNorm: 857875 1 1/2 Tablet(s) PO QHS 201412/29/2015 Inactive losartan 100 mg tablet RxNorm: 128375 1 Tablet(s) PO QD -replac es lisinopril 10/26/2014 04/23/2015 Inactive Levaquin 500 mg tablet RxNorm: 714906 1 Tablet(s) PO QD 10/08/2014 Inactive Levaquin 500 mg tablet RxNorm: 879949 1 Tablet(s) PO QD 10/08/2014 Inactive Diflucan 100 mg tablet RxNorm: 184978 1 Tablet(s) PO QD 10/06/2014 Inactive DuoNeb 0.5 mg-3 mg(2.5 mg base)/3 mL solution for nebulizati on RxNorm: 4516226 3 Milliliter(s) INH QID 09/23/2014 08/09/2016 Inactive Ventolin HFA 90 mcg/actuation aerosol inhaler RxNorm: 974989 2 Puff(s) INH QID as needed for shortness of breath 09/21/2014 12/29/2015 Inactive [AttnRPh: Saving apply/adjudicate RxGRP:SG20 RxBIN:[id number] RxPCN: ID#:[id number]] promethazine-codeine 6.25 mg-10 mg/5 mL syrup RxNorm: 506025 1 Teaspoon(s) PO QHS as needed for cough 09/08/2014 09/20/2014 Inactive prednisone 20 mg tablet RxNorm: 630469 1 Tablet(s) PO BID 09/02/2014 09/08/2014 Inactive promethazine-codeine 6.25 mg-10 mg/5 mL syrup RxNorm: 247726 1 Teaspoon(s) PO Q4H 09/02/2014 09/20/2014 Inactive doxycycline monohydrate 100 mg capsule RxNorm: 425895 1 Capsule (s) PO BID 09/02/2014 09/07/2014 Inactive Tessalon Perles 100 mg capsule RxNorm: 862801 1 Capsule (s) PO TID as needed for cough 08/31/2014 09/20/2014 Inactive Actos 15 mg tablet RxNorm: 078853 1 Tablet(s) PO QAM 1 Tablet(s ) PO QAM 08/26/2014 09/20/2014 Inactive loratadine 10 mg tablet RxNorm: 866018 1 Tablet(s) PO QD for dr saenz 08/26/2014 10/26/2014 Inactive Zithromax 500 mg tablet RxNorm: 151608 1 Tablet(s) PO QD 08/25/2014 1 11/01/2013 Inactive Zithromax 500 mg tablet RxNorm: 147914 1 Tablet(s) PO QD 08/25/2014 1 10/25/2013 Inactive Trazadone 75mg Tablet RxNorm: 1 Tablet(s) PO QHS 08/10/20142018 Inactive Zocor 20 mg tablet RxNorm: 531496 1 Tablet(s) PO QD 08/10/20142014 Inactive Trazadone 75mg Tablet RxNorm: 1 Tablet(s) PO QHS as need ed for sleep 08/10/2014 10/08/2014 Inactive Celexa 40 mg tablet RxNorm: 158034 1 Tablet(s) PO QD 1 Tablet(s) PO QD 1 Tablet(s) PO QD Generic OKAY 06/09/2014 10/06/2014 Inactive Actos 15 mg tablet RxNorm: 291447 1 Tablet(s) PO QAM 05/12/201408/26 Inactive lisinopril 20 mg tablet RxNorm: 235245 1 Tablet(s) PO QD 05/12/2014 0 10/26/2014 Inactive TAKE ONE TABLET BY MOUTH EVERY DAY;Gener ic For:*PRINIVIL 20 MG TABLET [AttnRPh: Saving apply/adjudicate RxGRP:SG20 RxBIN:[id number] RxPCN: ID#:[id number]] hydrocodone 5 mg-acetaminophen 325 mg tablet RxNorm: 572146 1 Tablet(s) PO TID as needed for pain for severe pain 04/30/2014 08/09/2014 Inactive hydrocodone 5 mg-acetaminophen 325 mg tablet RxNorm: 454409 1 Tablet(s) PO TID as needed for pain for severe pain 04/17/2014 04/29/2014 Inactive doxycycline hyclate 100 mg capsule RxNorm: 029589 1 Capsule(s) PO BID 03/05/2014 03/04/2014 Inactive doxycycline hyclate 100 mg capsule RxNorm: 082130 1 Capsule(s) PO BID 03/05/2014 03/14/2014 Inactive albuterol sulfate 2.5 mg/3 mL (0.083 %) solution for n ebulization RxNorm: 870119 Milliliter(s) INH USE 1 VIAL IN NEBULIZE R EVERY FOUR HOURS NEEDED FOR WHEEZING OR SHORTNESS OF BREATH 03/02/2014 06/29/2015 Inactive Generic For:*PROVENTIL 0.83 MG/ML SOLUTN 06/13/2013 2:04:46 PM Celexa 40 mg tablet RxNorm: 316447 1 Tablet(s) PO QD 1 Tablet(s) PO QD replaces lexapro. Generic OKAY 01/13/2014 06/09/2014 Inactive Actos 15 mg tablet RxNorm: 712826 1 Tablet(s) PO QAM 01/07/201405/12 Inactive lisinopril 20 mg tablet RxNorm: 219157 1 Tablet(s) PO QD 12/08/2013 0 05/12/2014 Inactive TAKE ONE TABLET BY MOUTH EVERY DAY;Gener ic For:*PRINIVIL 20 MG TABLET cefdinir 300 mg capsule RxNorm: 670032 2 Capsule(s) PO QD 11/10/2013 08/09/2014 Inactive cefdinir 300 mg capsule RxNorm: 932127 2 Capsule(s) PO QD 10/09/2013 10/15/2013 Inactive Actos 15 mg tablet RxNorm: 809120 1 Tablet(s) PO QAM 10/09/201301/06 Inactive doxycycline hyclate 100 mg capsule RxNorm: 6492986 1 Capsule(s) PO Q12H 09/18/2013 09/27/2013 Inactive omeprazole 20 mg capsule,delayed release RxNorm: 266384 2 Capsule(s) PO QD TAKE 2 CAPSULES BY MOUTH DAILY 09/03/2013 03/01/2014 Inactive Generi c For:*PRILOSEC [address] Celexa 40 mg tablet RxNorm: 891148 1 Tablet(s) PO QD re places lexapro. Generic OKAY 09/03/2013 01/13/2014 Inactive Symbicort 160 mcg-4.5 mcg/actuation HFA aerosol inhaler RxNo rm: 1394886 2 Puff(s) INH BID 08/13/2013 03/23/2014 Inactive metformin 1,000 mg tablet RxNorm: 574831 1 Tablet(s) PO BID 013 08/12/2013 Inactive TAKE ONE TABLET BY MOUTH TWI CE DAILY;Generic For:GLUCOPHAGE 1,000 MG TABLET 08/27/12 Thank you Actos 15 mg tablet RxNorm: 579085 1 Tablet(s) PO QAM 06/23/201310/09 Inactive lisinopril 20 mg tablet RxNorm: 680591 1 Tablet(s) PO QD 06/23/2013 0 12/08/2013 Inactive TAKE ONE TABLET BY MOUTH EVERY DAY;Gener ic For:*PRINIVIL 20 MG TABLET albuterol sulfate 2.5 mg/3 mL (0.083 %) solution for n ebulization RxNorm: 629092 Solution for Nebulization INH USE 1 VIAL IN NEBULIZER EVERY FOUR HOURS NEEDED FOR WHEEZING OR SHORTNESS OF BREATH 06/16/2013 03/01/2014 Inactive Generic For:*PROVENTIL 0.83 MG/ML SOLUTN 06/13/2013 2:04:46 PM prednisone 10 mg tablet RxNorm: 276101 1 Tablet(s) PO BID 04/09/2013 04/13/2013 Inactive AndroGel 1.25 gram/actuation (1%) Transdermal Gel Pump RxNorm: 2 40581 TD 04/09/2013 08/09/2014 Inactive APPLY 4 PUMPS OF GEL AT BEDTIME DIRECTED;WC (Appended: Controlled substance eRx refill - RxReferenceNumber: [id number]) azithromycin 250 mg tablet RxNorm: 484895 2 Tablet(s) PO QD 013 04/16/2013 Inactive Amaryl 2 mg tablet RxNorm: 592267 1 Tablet(s) PO BID N eeds appt in 1 month (around March 21) 02/18/2013 08/12/2013 Inactive Amaryl 2 mg tablet RxNorm: 563782 1 Tablet(s) PO BID 02/18/201302/17 Inactive metformin 1,000 mg tablet RxNorm: 676305 1 Tablet(s) PO BID 013 07/27/2013 Inactive TAKE ONE TABLET BY MOUTH TWI CE DAILY;Generic For:GLUCOPHAGE 1,000 MG TABLET 08/27/12 Thank you Actos 15 mg tablet RxNorm: 640280 1 Tablet(s) PO QAM 02/04/201306/03 Inactive albuterol sulfate 2.5 mg/3 mL (0.083 %) Neb Solution RxNorm: 120145 1 Unit Dose INH Q4H prn wheezing or shortness of breath 01/30/2013 06/15/2013 Inac tive Medrol (Gui) 4 mg tablets in a dose pack RxNorm: 509046 Tablet(s) PO as directed 01/20/2013 07/15/2013 Inactive cefdinir 300 mg capsule RxNorm: 569814 1 Capsule(s) PO BID anti biotic 01/20/2013 01/29/2013 Inactive lisinopril 20 mg tablet RxNorm: 196507 Tablet(s) PO 01/13/20132012 Inactive TAKE ONE TABLET BY MOUTH EVERY DAY;Gener ic For:*PRINIVIL 20 MG TABLET citalopram 40 mg tablet RxNorm: 647310 Tablet(s) PO 01/13/20132013 Inactive TAKE ONE (1) TABLET BY MOUTH DAILY;Gener ic For:CELEXA 40 MG TABLET omeprazole 20 mg capsule,delayed release RxNorm: 534196 Capsule(s) PO TAKE 2 CAPSULES BY MOUTH DAILY 11/15/2012 09/03/2013 Inactive Generic For:*PRILOSEC [address] amoxicillin 875 mg tablet RxNorm: 205913 1 Tablet(s) PO BID 013 10/28/2012 Inactive Actos 30 mg tablet RxNorm: 837191 1 Tablet(s) PO QD 09/23/20122011 Inactive Actos 15 mg tablet RxNorm: 714493 1 Tablet(s) PO QAM 09/23/201209/22 Inactive Actos 15 mg tablet RxNorm: 456835 1 Tablet(s) PO QAM 09/23/201202/04 Inactive prednisone 20 mg tablet RxNorm: 230380 1 Tablet(s) PO BID 08/28/2012 09/03/2012 Inactive doxycycline hyclate 100 mg tablet RxNorm: 5004142 1 Tablet(s) PO BI D 08/28/2012 09/06/2012 Inactive metformin 1,000 mg tablet RxNorm: 691567 Tablet(s) PO 08/27/201201/22 Inactive TAKE ONE TABLET BY MOUTH TWICE DAILY;Gen lewis For:GLUCOPHAGE 1,000 MG TABLET 08/27/12 Thank you citalopram 40 mg tablet RxNorm: 101214 Tablet(s) PO 07/30/20122012 Inactive TAKE ONE (1) TABLET BY MOUTH DAILY;Gener ic For:CELEXA 40 MG TABLET lisinopril 20 mg tablet RxNorm: 774195 Tablet(s) PO 07/30/20122012 Inactive TAKE ONE TABLET BY MOUTH EVERY DAY;Gener ic For:*PRINIVIL 20 MG TABLET AndroGel 1.25 gram/actuation (1%) Transdermal Gel Pump RxNor m: [id number] Gel in Metered-Dose Pump TD 07/09/2012 04/08/2013 Inactive APPLY 4 PUM PS OF GEL AT BEDTIME DIRECTED;WC (Appended: Controlled substance eRx refill - RxReferenceNumber: [id number]) citalopram 40 mg tablet RxNorm: 058099 Tablet(s) PO 07/01/20122011 Inactive TAKE ONE (1) TABLET BY MOUTH DAILY;Gener ic For:CELEXA 40 MG TABLET metformin 1,000 mg tablet RxNorm: 458667 1 Tablet(s) PO BID 012 08/25/2012 Inactive TAKE 1 TABLET BY MOUTH TWICE DAILY;Generic For:GLUCOPHAGE 1,000 MG TABLET meclizine 25 mg Tab RxNorm: 663540 1 Tablet(s) PO QID prn dizziness 05/09/2012 05/18/2012 Inactive lisinopril 20 mg tablet RxNorm: 384590 Tablet(s) PO QD 04/22/2012 Inactive TAKE ONE (1) TABLET BY MOUTH DAILY;Gener ic For:*PRINIVIL 20 MG TABLET metformin 1,000 mg tablet RxNorm: 130133 Tablet(s) PO 03/19/201212/2011 Inactive TAKE 1 TABLET BY MOUTH TWICE DAILY;Gener ic For:GLUCOPHAGE 1,000 MG TABLET cefdinir 300 mg Cap RxNorm: 758640 1 Capsule(s) PO BID 11/28/2011 Inactive cefdinir 300 mg Cap RxNorm: 603250 1 Capsule(s) PO BID 11/01/2011 Inactive citalopram 40 mg tablet RxNorm: 942920 Tablet(s) PO 10/30/20112011 Inactive TAKE ONE (1) TABLET BY MOUTH DAILY;Gener ic For:CELEXA 40 MG TABLET cefdinir 300 mg Cap RxNorm: 482770 1 Capsule(s) PO BID 10/02/2011 Inactive metformin 1,000 mg Tab RxNorm: 223957 1 Tablet(s) PO BID 09/28/2011 0 01/25/2012 Inactive citalopram 40 mg Tab RxNorm: 293665 1 Tablet(s) PO QD 09/28/20110 11/2011 Inactive omeprazole 20 mg capsule,delayed release RxNorm: 094512 2 Capsu le(s) PO QD 09/28/2011 03/25/2012 Inactive lisinopril 20 mg Tab RxNorm: 704031 Tablet(s) PO 08/21/2011 04/21/2012 Inactive TAKE ONE (1) TABLET BY MOUTH DAILY;Generic For:*PRINIVIL 20 MG TABLET AndroGel 1.25 gram/actuation (1%) Transdermal Gel Pump RxNor m: [id number] Gel in Metered-dose Pump TD 08/21/2011 07/09/2012 Inactive APPLY 4 PUM PS OF GEL AT BEDTIME DIRECTED (Appended: Controlled substance eRx refill - RxReferenceNumber: [id number]) Lantus Solostar 100 unit/mL (3 mL) Sub-Q Insulin Pen RxNorm: 076538 30 Unit(s) SQ QD 06/20/2011 05/08/2012 Inactive Lantus Solostar 100 unit/mL (3 mL) Sub-Q Insulin Pen RxNorm: 532021 30 Unit(s) SQ QD 06/19/2011 06/19/2011 Inactive metformin 1,000 mg Tab RxNorm: 791154 1 Tablet(s) PO BID 05/12/2011 1 11/09/2010 Inactive citalopram 40 mg Tab RxNorm: 916074 1 Tablet(s) PO QD 03/06/20110 05/2011 Inactive metformin 1,000 mg Tab RxNorm: 650621 1 Tablet(s) PO BID 12/27/2010 0 04/25/2011 Inactive lisinopril 20 mg Tab RxNorm: 125309 Tablet(s) PO TAKE 1 TABLET BY MOUTH EVERY DAY;Generic For:*PRINIVIL 20 MG TABLET 12/26/2010 08/20/2011 Inactive Ceftin 500 mg Tab RxNorm: 217996 1 Tablet(s) PO BID 12/19/20102010 Inactive omeprazole 20 mg Cap, Delayed Release RxNorm: 453205 2 Capsule( s) PO QD 09/13/2010 03/11/2011 Inactive Byetta 10 mcg/0.04 mL per dose Sub-Q Pen Injector RxNorm: 84 7913 1 Unit Dose SQ BID 09/07/2010 10/06/2010 Inactive Celexa 40 mg tablet RxNorm: 780499 1 Tablet(s) PO QD re places lexapro. Generic OKAY 08/09/2010 02/04/2011 Inactive Actos 30 mg Tab RxNorm: 490780 1 Tablet(s) PO QD 08/09/2010 04/02/2011 Inactive lisinopril 20 mg Tab RxNorm: 608787 1 Tablet(s) PO QD 08/09/201011/22 Inactive metformin 1,000 mg Tab RxNorm: 212011 1 Tablet(s) PO BID 08/09/2010 0 12/06/2010 Inactive Metformin 1,000 mg Tab RxNorm: 628064 1 Tablet(s) PO BID 04/26/2010 0 04/25/2010 Inactive metformin 1,000 mg Tab RxNorm: 745426 1 Tablet(s) PO BID 04/26/2010 1 Inactive Lomotil 2.5 mg-0.025 mg Tab RxNorm: 5041241 1 Tablet(s) PO TID 1-2 TABS THREE TIMES DAILY 04/05/2010 04/07/2010 Inactive Mupirocin 2 % Topical Cream RxNorm: 191926 TOP BID 04/05/201003/25 Inactive lisinopril 20 mg Tab RxNorm: 085640 1 Tablet(s) PO QD 03/29/201010/2009 Inactive Actos 30 mg Tab RxNorm: 356142 1 Tablet(s) PO QD 03/29/2010 07/26/2010 Inactive Lisinopril 20 mg Tab RxNorm: 641872 1 Tablet(s) PO QD 02/27/201001/2010 Inactive Actos 30 mg Tab RxNorm: 341753 1 Tablet(s) PO QD 02/14/2010 03/28/2010 Inactive Celexa 40 mg Tab RxNorm: 478410 1 Tablet(s) PO QD replaces lexapro 01/13/2010 07/11/2010 Inactive Cyclobenzaprine 10 mg Tab RxNorm: 087145 1 Tablet(s) PO TID prn spasm 12/23/2009 01/21/2010 Inactive Cyclobenzaprine 10 mg Tab RxNorm: 262125 1 Tablet(s) PO TID 010 12/22/2009 Inactive Hydrocodone-Acetaminophen 7.5 mg-750 mg Tab RxNorm: 672882 1 Ta blet(s) PO Q4-6H 12/23/2009 12/22/2009 Inactive Levemir FlexTouch U-100 Insulin 100 unit/mL (3 mL) sub cutaneous pen RxNorm: 357962 22 Unit(s) SQ QD No Start Date Active aspirin 81 mg tablet RxNorm: 228981 1 Tablet(s) PO QD No Start Date Active isosorbide mononitrate ER 60 mg tablet,extended release 24 h r RxNorm: 787702 1 Tablet(s) PO QD No Start Date Active amlodipine 5 mg tablet RxNorm: 055164 1 Tablet(s) PO QD No Start Date Active Vitamin D3 1,000 unit tablet RxNorm: 612231 3 Tablet(s) PO QD No St art Date 10/26/2014 Inactive Lexapro 20 mg Tab RxNorm: 646194 1 Tablet(s) PO QD No Start Date 12/24 Inactive loperamide 2 mg tablet RxNorm: 231026 Tablet(s) PO PRN No Start Date 06/07/2016 Inactive Janumet 50 mg-1,000 mg Tab RxNorm: 958108 1 Tablet(s) PO BID No Sta rt Date 01/12/2010 Inactive Levemir U-100 Insulin 100 unit/mL subcutaneous solution RxNo rm: 615868 10 Unit(s) SQ QHS No Start Date 12/08/2018 Inactive Medrol (Gui) 4 mg tablets in a dose pack RxNorm: 635363 Tablet(s) PO Use as directed No Start Date 12/22/2018 Inactive aspirin 325 mg tablet RxNorm: 962571 1 Tablet(s) PO QD No Start Date 08/09/2016 Inactive Efudex 5 % Topical Cream RxNorm: 837661 Application TOP QD prn fto skin lesion No Start Date 08/12/2013 Inactive nitroglycerin 0.4 mg sublingual tablet RxNorm: 111171 Tablet(s) SL as needed No Start Date 12/18/2018 Inactive levofloxacin 500 mg tablet RxNorm: 873574 1 Tablet(s) PO QD No Star t Date 08/06/2018 Inactive ferrous sulfate 325 mg (65 mg iron) tablet RxNorm: 367864 1 Tab let(s) PO QHS No Start Date 04/16/2017 Inactive fluorouracil 5 % topical cream RxNorm: 281046 1 TOP No Start James e 08/06/2018 Inactive Vitamin D3 1,000 unit capsule RxNorm: 419015 1 Capsule(s) PO QD No Start Date 02/03/2018 Inactive Hydrocodone-Acetaminophen 7.5 mg-750 mg Tab RxNorm: 330246 1 Ta blet(s) PO PRN No Start Date 08/09/2014 Inactive pantoprazole 40 mg tablet,delayed release RxNorm: 366810 1 Tabl et(s) PO QD No Start Date 01/22/2018 Inactive omeprazole 20 mg Cap, Delayed Release RxNorm: 547363 2 Capsule( s) PO QD No Start Date 09/12/2010 Inactive DuoNeb 0.5 mg-3 mg(2.5 mg base)/3 mL solution for nebulizati on RxNorm: 5068080 INH Q4H as needed No Start Date 10/22/2018 Inactive Lyrica 75 mg capsule RxNorm: 507663 2 Capsule(s) PO QHS No Start Da te 03/09/2019 Inactive isosorbide mononitrate ER 30 mg tablet,extended release 24 h r RxNorm: 077480 1 Tablet(s) PO QD No Start Date 12/08/2018 Inactive Tradjenta 5 mg tablet RxNorm: 9703734 1 Tablet(s) PO QD No Start Da te 08/09/2016 Inactive Tudorza Pressair 400 mcg/actuation breath activated RxNorm: 3883921 1 Puff(s) INH BID No Start Date 06/17/2017 Inactive Lantus Solostar 100 unit/mL (3 mL) Sub-Q Insulin Pen RxNorm: 093090 30 Unit(s) SQ QD No Start Date 06/18/2011 Inactive Requip 4 mg tablet RxNorm: 712309 1 Tablet(s) PO BID No Start Date Inactive Symbicort 160 mcg-4.5 mcg/actuation HFA aerosol inhaler RxNo rm: 6911270 2 Puff(s) INH BID No Start Date 07/11/2018 Inactive atorvastatin 40 mg tablet RxNorm: 661624 1 Tablet(s) PO QD No Start Date 12/18/2018 Inactive tramadol 50 mg tablet RxNorm: 048294 1 Tablet(s) PO TID as needed for pain (take alone with two extra strength tylenol) No Start Date 01/16/2019 Inactive Symbicort 160 mcg-4.5 mcg/actuation HFA aerosol inhaler RxNo rm: 8454350 2 Puff(s) INH BID No Start Date 08/12/2013 Inactive Vitamin D3 5,000 unit tablet RxNorm: 626521 1 Tablet(s) PO QD No St art Date 05/08/2019 Inactive albuterol sulfate 2.5 mg/3 mL (0.083 %) Neb Solution RxNorm: 826477 1 Unit Dose INH Q4H prn wheezing or shortness of breath No Start Date 01/29/2013 Inac tive Ranexa 500 mg tablet,extended release RxNorm: 096460 1 Tablet(s ) PO BID No Start Date 02/03/2018 Inactive Advair Diskus 500 mcg-50 mcg/dose powder for inhalation RxNo rm: 8696238 1 Puff(s) INH BID No Start Date 08/09/2016 Inactive clopidogrel 75 mg tablet RxNorm: 933495 1 Tablet(s) PO QD No Start Date 05/01/2018 Inactive metformin 1,000 mg Tab RxNorm: 580064 1 Tablet(s) PO BID No Start D ate 08/12/2013 Inactive Silenor 3 mg tablet RxNorm: 756760 1 Tablet(s) PO QHS No Start Date 0 04/04/2017 Inactive Medrol (Gui) 4 mg tablets in a dose pack RxNorm: 814512 Tablet(s) PO as directed No Start Date 01/19/2013 Inactive Requip 4 mg tablet RxNorm: 154207 1 Tablet(s) PO BID No Start Date Inactive clopidogrel 75 mg tablet RxNorm: 027518 1 Tablet(s) PO QD No Start Date 02/03/2018 Inactive Tradjenta 5 mg tablet RxNorm: 7528795 1 Tablet(s) PO QD No Start Da te 02/03/2018 Inactive ProAir HFA 90 mcg/Actuation Aerosol Inhaler RxNorm: 207146 2 Pu ff(s) INH PRN No Start Date 07/09/2012 Inactive Tessalon Perles 100 mg capsule RxNorm: 810241 1 Capsule (s) PO TID as needed for cough No Start Date 08/30/2014 Inactive ferrous sulfate 325 mg (65 mg iron) tablet RxNorm: 658871 1 Tab let(s) PO QD No Start Date 05/08/2019 Inactive pioglitazone 15 mg tablet RxNorm: 227777 1 Tablet(s) PO QD No Start Date 09/20/2014 Inactive Lexapro Oral RxNorm: Oral No Start Date 12/13/2009 Inactive Breo Ellipta 100 mcg-25 mcg/dose powder for inhalation RxNor m: 5682937 1 Puff(s) INH BID No Start Date 05/31/2015 Inactive Tylenol Extra Strength 500 mg tablet RxNorm: 173936 2 T ablet(s) PO QHS along with ropironole No Start Date 12/18/2018 Inactive tramadol 50 mg tablet RxNorm: 036738 1 Tablet(s) PO QID as need ed for pain No Start Date 12/24/2018 Inactive cyclobenzaprine 10 mg Tab RxNorm: 924679 Oral No Start Date 12/22 Inactive Levemir FlexTouch 100 unit/mL (3 mL) subcutaneous insulin pe n RxNorm: 117563 10 Unit(s) SQ QD No Start Date 03/08/2016 Inactive amlodipine 5 mg tablet RxNorm: 000673 1 Tablet(s) PO QD No Start Da te 08/09/2016 Inactive Novolog 100 unit/mL subcutaneous solution RxNorm: 750453 10 Uni t(s) SQ AC No Start Date 08/12/2017 Inactive Levemir FlexTouch 100 unit/mL (3 mL) subcutaneous insulin pe n RxNorm: 050667 25 Unit(s) SQ QPM No Start Date 08/06/2018 Inactive Farxiga 5 mg tablet RxNorm: 1942028 1 Tablet(s) PO QD No Start Date 0 10/05/2014 Inactive DuoNeb 0.5 mg-3 mg(2.5 mg base)/3 mL solution for nebulizati on RxNorm: 3845080 inhalation No Start Date 09/23/2014 Inactive Doxycycline 100 mg Cap RxNorm: 822141 1 Capsule(s) PO BID No Start Date 12/18/2010 Inactive Vitamin B12 1000mcg Tablet RxNorm: 1 Tablet(s) PO QD No Start Date 02/03/2018 Inactive Hydrocodone-Acetaminophen 7.5 mg-750 mg Tab RxNorm: 899115 1 Ta blet(s) PO Q6-8H No Start Date 12/22/2009 Inactive Xigduo XR 5 mg-1,000 mg tablet,extended release RxNorm: 1593 833 1 Tablet(s) PO QD No Start Date 05/31/2015 Inactive cyanocobalamin (vit B-12) 1,000 mcg/mL injection solution Rx Norm: 117390 1 injection weekly for 4 weeks 1 Milliliter(s) Inj No Start Date 05/08/2019 Inactive AndroGel 1.25 g/Actuation (1%) Transdermal Gel Pump RxNorm: 6507483 TD Apply 4pumps daily No Start Date 08/21/2011 Inactive Actoplus MET 15 mg-850 mg Tab RxNorm: 464298 1 Tablet(s) PO BID No Start Date 12/18/2010 Inactive Amaryl 2 mg tablet RxNorm: 991115 1 Tablet(s) PO BID No Start Date Inactive Levemir FlexTouch 100 unit/mL (3 mL) subcutaneous insulin pe n RxNorm: 522435 20 Unit(s) SQ QD No Start Date 06/12/2016 Inactive Symbicort 160 mcg-4.5 mcg/actuation HFA aerosol inhaler RxNo rm: 7740575 2 Puff(s) INH BID No Start Date 02/03/2018 Inactive Symbicort 160 mcg-4.5 mcg/Actuation Inhalation HFA Aer osol Inhaler RxNorm: 3600244 2 INH BID No Start Date 12/18/2010 Inactive Farxiga 5 mg tablet RxNorm: 0009370 1 Tablet(s) PO QD No Start Date 0 03/01/2015 Inactive magnesium oxide 400 mg (241.3 mg magnesium) tablet RxNorm: 1 62233 1 Tablet(s) PO QHS No Start Date 05/08/2019 Inactive Tradjenta 5 mg tablet RxNorm: 5526132 2 Tablet(s) PO QD No Start Da te 07/21/2015 Inactive Levemir FlexTouch U-100 Insulin 100 unit/mL (3 mL) sub cutaneous pen RxNorm: 525945 40 Unit(s) SQ QD No Start Date 08/06/2018 Inactive Sinemet CR 50 mg-200 mg tablet,extended release RxNorm: 8343 41 1 Tablet(s) PO QHS No Start Date 09/24/2017 Inactive metoprolol tartrate 25 mg tablet RxNorm: 639553 1/2 Tablet(s) P O BID No Start Date 02/03/2018 Inactive Requip 4 mg tablet RxNorm: 229342 1 Tablet(s) PO QHS No Start Date Inactive Ventolin HFA 90 mcg/actuation aerosol inhaler RxNorm: 603084 2 Puff(s) INH Q4H as needed No Start Date 04/22/2018 Inactive B12 5,000 mcg-100 mcg sublingual lozenge RxNorm: 066140 IM as d irected No Start Date 05/08/2019 Inactive ropinirole 1 mg tablet RxNorm: 095246 1 Tablet(s) PO QHS No Start D ate 08/06/2018 Inactive Percocet 5 mg-325 mg tablet RxNorm: 2043108 1 Tablet(s) PO Q4H as needed for pain (Dr Rizzo) No Start Date 10/22/2018 Inactive hydrocodone 5 mg-acetaminophen 325 mg tablet RxNorm: 029626 1 Tablet(s) PO TID as needed for pain for severe pain No Start Date 04/16/2014 Inactive scopolamine 1.5 mg 72 hr Transderm Patch RxNorm: 986301 Application TD Q72H for dizziness No Start Date 08/12/2013 Inactive ipratropium-albuterol 0.5 mg-3 mg(2.5 mg base)/3 mL ne bulization soln RxNorm: 4667462 1 Unit Dose INH Q4H No Start Date 01/16/2019 Inactive Medication Administered No Medication Administered data Immunizations Vaccine Codes Date Status Influenza CVX: 135 08/07/2019 Complete Pneumococcal CVX: 33 07/24/2017 Complete Influenza CVX: 135 06/13/2016 Complete Pneumococcal CVX: 133 06/13/2016 Complete Influenza CVX: 141 07/10/2012 Pneumovax Unknown 07/10/2012 Results Observation Observation Code Item Item Code Result Date S ervice Location COMPLETE BLOOD COUNT [id number] WBC 5.5 10e9/L 06/17/20 19 Unknown COMPLETE BLOOD COUNT [id number] RBC 3.92 10e12/L 2018 Unknown COMPLETE BLOOD COUNT [id number] HEMOGLOBIN 10.9 g/dL 06/17/20 19 Unknown COMPLETE BLOOD COUNT [id number] HEMATOCRIT 34.8 % 06/17/20 19 Unknown COMPLETE BLOOD COUNT [id number] MCV 88.8 fL 9 Unknown COMPLETE BLOOD COUNT 0970997 MCH 27.8 pg 9 Unknown COMPLETE BLOOD COUNT 2716365 MCHC 31.3 g/dL 9 Unknown COMPLETE BLOOD COUNT 3185157 PLATELET COUNT 239 10e9/L Unknown COMPLETE BLOOD COUNT 3461553 Mean Plt Volume 10.0 fL Unknown COMPLETE BLOOD COUNT 5941682 Neut Auto 68.0 % 9 Unknown COMPLETE BLOOD COUNT 2064144 Lymph Auto 14.8 % 06/17/20 19 Unknown COMPLETE BLOOD COUNT 5747003 Curry Auto 13.1 % 9 Unknown COMPLETE BLOOD COUNT 9185092 RDW 14.7 % 9 Unknown COMPLETE BLOOD COUNT 2698977 Eos Auto 3.6 % 9 Unknown COMPLETE BLOOD COUNT 4780456 Baso Auto 0.5 % 9 Unknown COMPLETE BLOOD COUNT 5818101 Neutrophil Abs 3.74 10e9/L Unknown COMPLETE BLOOD COUNT 2425884 Lymphocyte Abs 0.81 10e9/L Unknown COMPLETE BLOOD COUNT 9793335 Monocyte Abs 0.72 10e9/L 05/26 Unknown COMPLETE BLOOD COUNT 9451967 Eosinophil Abs 0.20 10e9/L Unknown COMPLETE BLOOD COUNT 4244293 RDW-SD 46.4 fL 9 Unknown COMPLETE BLOOD COUNT 7691996 Basophil Abs 0.03 10e9/L 05/26 Unknown IRON 46327 Iron 36 ug/dL 06/17/2019 Unknown VITAMIN B 12 51408 VITAMIN B12 540 pg/mL 06/17/2019 Unkn own GFR CALC 7508459 GFR Non Afr Amr 59 mL/min 06/17/2019 Unk nown GFR CALC 3738944 GFR Afr Amr >60 mL/min 06/17/2019 Unknow n ERYTHROCYTE SEDIMENTATION RATE 03195 Sed Rate 34 mm/hr 06/17/2019 Unknown THYROID STIMULATING HORMONE 38627 TSH 2.217 uIU/mL 06/17/2019 Unknown COMPREHENSIVE METABOLIC 08090 AST 12 U/L 2018 Unknown COMPREHENSIVE METABOLIC 86385 ALT 11 U/L 2018 Unknown COMPREHENSIVE METABOLIC 71959 BUN 17 mg/dL 2018 Unknown COMPREHENSIVE METABOLIC 60956 ALBUMIN 3.9 g/dL 2018 Unknown COMPREHENSIVE METABOLIC 69918 CHLORIDE 103 mmol/L 06/17 Unknown COMPREHENSIVE METABOLIC 04452 Bili Total 0.4 mg/dL 06/17 Unknown COMPREHENSIVE METABOLIC 29786 ALK PHOS 51 U/L 2018 Unknown COMPREHENSIVE METABOLIC 87033 SODIUM 140 mmol/L 06/17 Unknown COMPREHENSIVE METABOLIC 71969 CREATININE 1.20 mg/dL 05/26 Unknown COMPREHENSIVE METABOLIC 99775 CALCIUM 8.9 mg/dL 2018 Unknown COMPREHENSIVE METABOLIC 86838 POTASSIUM 4.5 mmol/L 06/17 Unknown COMPREHENSIVE METABOLIC 87174 Total Protein 6.1 g/dL Unknown COMPREHENSIVE METABOLIC 86391 Glucose 108 mg/dL 2018 Unknown COMPREHENSIVE METABOLIC 30252 Bicarbonate 27 mmol/L 05/26 Unknown COMPREHENSIVE METABOLIC 98520 AGAP 10 mmol/L 2018 Unknown FERRITIN 05322 FERRITIN 35.5 ng/mL 05/08/2019 Unknown VITAMIN D TOTAL (25 HYDROXY) 03292 Vitamin D 25 OH 26.0 ng/mL 05/08/2019 Unknown GLYCOSYLATED HEMOGLOBIN TEST 18162 Hgb A1c 72751-2 8.2 % 0 05/08/2019 Unknown MEAN GLUC 7359491 Calc Mean Gluc 189 mg/dL 05/08/2019 Unkn own GFR CALC 4883215 GFR Non Afr Amr >60 mL/min 05/08/2019 Un known GFR CALC 2763027 GFR Afr Amr >60 mL/min 05/08/2019 Unknow n VITAMIN B 12 04828 VITAMIN B12 197 pg/mL 05/08/2019 Unkn own IRON 72486 Iron 34 ug/dL 05/08/2019 Unknown COMPLETE BLOOD COUNT 8630953 WBC 6.9 10e9/L 05/08/20 19 Unknown COMPLETE BLOOD COUNT 8344568 RBC 3.95 10e12/L 2018 Unknown COMPLETE BLOOD COUNT 5663547 HEMOGLOBIN 11.1 g/dL 05/08/20 19 Unknown COMPLETE BLOOD COUNT 3110722 HEMATOCRIT 34.9 % 05/08/20 19 Unknown COMPLETE BLOOD COUNT 3243900 MCV 88.4 fL 9 Unknown COMPLETE BLOOD COUNT 7718395 MCH 28.1 pg 9 Unknown COMPLETE BLOOD COUNT 8123423 MCHC 31.8 g/dL 9 Unknown COMPLETE BLOOD COUNT 4473390 PLATELET COUNT 217 10e9/L Unknown COMPLETE BLOOD COUNT 1267558 Mean Plt Volume 9.6 fL Unknown COMPLETE BLOOD COUNT 2391138 Neut Auto 77.6 % 9 Unknown COMPLETE BLOOD COUNT 4110688 Lymph Auto 10.7 % 05/08/20 19 Unknown COMPLETE BLOOD COUNT 7859244 Curry Auto 10.4 % 9 Unknown COMPLETE BLOOD COUNT 2761247 RDW 14.7 % 9 Unknown COMPLETE BLOOD COUNT 3698767 Eos Auto 1.2 % 9 Unknown COMPLETE BLOOD COUNT 0761308 Baso Auto 0.1 % 9 Unknown COMPLETE BLOOD COUNT 3072270 Neutrophil Abs 5.35 10e9/L Unknown COMPLETE BLOOD COUNT 3325042 Lymphocyte Abs 0.74 10e9/L Unknown COMPLETE BLOOD COUNT 4030028 Monocyte Abs 0.72 10e9/L 04/24 Unknown COMPLETE BLOOD COUNT 9194368 Eosinophil Abs 0.08 10e9/L Unknown COMPLETE BLOOD COUNT 9536149 RDW-SD 46.6 fL 9 Unknown COMPLETE BLOOD COUNT 5120155 Basophil Abs 0.01 10e9/L 04/24 Unknown COMPREHENSIVE METABOLIC 45270 AST 13 U/L 2018 Unknown COMPREHENSIVE METABOLIC 97299 ALT 9 U/L 2018 Unknown COMPREHENSIVE METABOLIC 24410 BUN 18 mg/dL 2018 Unknown COMPREHENSIVE METABOLIC 37935 ALBUMIN 4.3 g/dL 2018 Unknown COMPREHENSIVE METABOLIC 38658 CHLORIDE 99 mmol/L 2018 Unknown COMPREHENSIVE METABOLIC 68857 Bili Total 0.4 mg/dL 05/08 Unknown COMPREHENSIVE METABOLIC 77619 ALK PHOS 48 U/L 2018 Unknown COMPREHENSIVE METABOLIC 44644 SODIUM 137 mmol/L 05/08 Unknown COMPREHENSIVE METABOLIC 23710 CREATININE 0.79 mg/dL 04/24 Unknown COMPREHENSIVE METABOLIC 45593 CALCIUM 9.5 mg/dL 2018 Unknown COMPREHENSIVE METABOLIC 19635 POTASSIUM 4.0 mmol/L 05/08 Unknown COMPREHENSIVE METABOLIC 61705 Total Protein 6.3 g/dL Unknown COMPREHENSIVE METABOLIC 00030 Glucose 232 mg/dL 2018 Unknown COMPREHENSIVE METABOLIC 33417 Bicarbonate 27 mmol/L 04/24 Unknown COMPREHENSIVE METABOLIC 28516 AGAP 11 mmol/L 2018 Unknown GLYCOSYLATED HEMOGLOBIN TEST 26832 Hgb A1c 79592-0 8.9 % 0 12/10/2018 Unknown MEAN GLUC 1742515 Calc Mean Gluc 209 mg/dL 12/10/2018 Unkn own LIPID GROUP 35532 Cholesterol 145 mg/dL 12/09/2018 Unkno wn LIPID GROUP 59148 Triglyceride 235 mg/dL 12/09/2018 Unkn own LIPID GROUP 86568 HDL CHOLESTEROL 40 mg/dL 12/09/2018 U nknown LIPID GROUP 02428 Chol/HDL Ratio 3.62 ratio 12/09/2018 U nknown LIPID GROUP 30252 NON-HDL Chol 105 mg/dL 12/09/2018 Unkn own LIPID GROUP 50143 LDL Cholesterol 58 mg/dL 12/09/2018 U nknown THYROID STIMULATING HORMONE 39858 TSH 1.071 uIU/mL 12/09/2018 Unknown GFR CALC 1822564 GFR Non Afr Amr >60 mL/min 12/09/2018 Un known GFR CALC 2619638 GFR Afr Amr >60 mL/min 12/09/2018 Unknow n COMPLETE BLOOD COUNT 3992933 WBC 7.6 10e9/L 12/10/19 19 Unknown COMPLETE BLOOD COUNT 1104437 RBC 3.97 10e12/L 2018 Unknown COMPLETE BLOOD COUNT 1495887 HEMOGLOBIN 11.4 g/dL 12/10/19 19 Unknown COMPLETE BLOOD COUNT 5822361 HEMATOCRIT 35.8 % 12/10/19 19 Unknown COMPLETE BLOOD COUNT 8935629 MCV 90.2 fL 9 Unknown COMPLETE BLOOD COUNT 0480346 MCH 28.7 pg 9 Unknown COMPLETE BLOOD COUNT 1577156 MCHC 31.8 g/dL 9 Unknown COMPLETE BLOOD COUNT 4521306 PLATELET COUNT 200 10e9/L Unknown COMPLETE BLOOD COUNT 1503292 Mean Plt Volume 10.1 fL Unknown COMPLETE BLOOD COUNT 9503108 Neut Auto 79.0 % 9 Unknown COMPLETE BLOOD COUNT 2944398 Lymph Auto 8.3 % 12/10/19 19 Unknown COMPLETE BLOOD COUNT 3861230 Curry Auto 10.8 % 9 Unknown COMPLETE BLOOD COUNT 3261860 RDW 14.6 % 9 Unknown COMPLETE BLOOD COUNT 1066061 Eos Auto 1.5 % 9 Unknown COMPLETE BLOOD COUNT 0897600 Baso Auto 0.4 % 9 Unknown COMPLETE BLOOD COUNT 3743468 Neutrophil Abs 6.00 10e9/L Unknown COMPLETE BLOOD COUNT 2447161 Lymphocyte Abs 0.63 10e9/L Unknown COMPLETE BLOOD COUNT 5650299 Monocyte Abs 0.82 10e9/L 11/22 Unknown COMPLETE BLOOD COUNT 9838271 Eosinophil Abs 0.11 10e9/L Unknown COMPLETE BLOOD COUNT 7208574 RDW-SD 46.9 fL 9 Unknown COMPLETE BLOOD COUNT 5034561 Basophil Abs 0.03 10e9/L 11/22 Unknown COMPREHENSIVE METABOLIC 66735 AST 11 U/L 2018 Unknown COMPREHENSIVE METABOLIC 49149 ALT 11 U/L 2018 Unknown COMPREHENSIVE METABOLIC 08068 BUN 21 mg/dL 2018 Unknown COMPREHENSIVE METABOLIC 17626 ALBUMIN 4.7 g/dL 2018 Unknown COMPREHENSIVE METABOLIC 66595 CHLORIDE 99 mmol/L 2018 Unknown COMPREHENSIVE METABOLIC 94041 Bili Total 0.4 mg/dL 12/09 Unknown COMPREHENSIVE METABOLIC 13722 ALK PHOS 73 U/L 2018 Unknown COMPREHENSIVE METABOLIC 03085 SODIUM 137 mmol/L 12/09 Unknown COMPREHENSIVE METABOLIC 60744 CREATININE 1.12 mg/dL 11/22 Unknown COMPREHENSIVE METABOLIC 92759 CALCIUM 9.4 mg/dL 2018 Unknown COMPREHENSIVE METABOLIC 01011 POTASSIUM 4.2 mmol/L 12/09 Unknown COMPREHENSIVE METABOLIC 48379 Total Protein 6.8 g/dL Unknown COMPREHENSIVE METABOLIC 65138 Glucose 194 mg/dL 2018 Unknown COMPREHENSIVE METABOLIC 76933 Bicarbonate 30 mmol/L 11/22 Unknown COMPREHENSIVE METABOLIC 53268 AGAP 8 mmol/L 2018 Unknown FREE T4 51437 T4 Free 0.86 ng/dL 12/09/2018 Unknown COMPLETE BLOOD COUNT 8809776 WBC 6.8 10e9/L 04/17/20 17 Unknown COMPLETE BLOOD COUNT 7985869 RBC 3.86 10e12/L 2016 Unknown COMPLETE BLOOD COUNT 7741171 HEMOGLOBIN 9.8 g/dL 04/17/20 17 Unknown COMPLETE BLOOD COUNT 4957993 HEMATOCRIT 31.1 % 04/17/20 17 Unknown COMPLETE BLOOD COUNT 8712412 MCV 80.6 fL 7 Unknown COMPLETE BLOOD COUNT 7464935 MCH 25.4 pg 7 Unknown COMPLETE BLOOD COUNT 4274970 MCHC 31.5 g/dL 7 Unknown COMPLETE BLOOD COUNT 8006631 PLATELET COUNT 247 10e9/L Unknown COMPLETE BLOOD COUNT 2620360 Mean Plt Volume 9.7 fL Unknown COMPLETE BLOOD COUNT 8403497 Neut Auto 74.1 % 7 Unknown COMPLETE BLOOD COUNT 0700924 Lymph Auto 12.0 % 04/17/20 17 Unknown COMPLETE BLOOD COUNT 9364776 Curry Auto 10.8 % 7 Unknown COMPLETE BLOOD COUNT 7768494 RDW 15.9 % 7 Unknown COMPLETE BLOOD COUNT 0948997 Eos Auto 2.5 % 7 Unknown COMPLETE BLOOD COUNT 1727385 Baso Auto 0.6 % 7 Unknown COMPLETE BLOOD COUNT 7465845 Neutrophil Abs 5.04 10e9/L Unknown COMPLETE BLOOD COUNT 9122496 Lymphocyte Abs 0.82 10e9/L Unknown COMPLETE BLOOD COUNT 4363537 Monocyte Abs 0.73 10e9/L 03/25 Unknown COMPLETE BLOOD COUNT 8414554 Eosinophil Abs 0.17 10e9/L Unknown COMPLETE BLOOD COUNT 1601348 RDW-SD 44.4 fL 7 Unknown COMPLETE BLOOD COUNT 6396355 Basophil Abs 0.04 10e9/L 03/25 Unknown MEAN GLUC 5546704 Calc Mean Gluc 223 mg/dL 04/17/2017 Unkn own GFR CALC 5956955 GFR Non Afr Amr >60 mL/min 04/17/2017 Un known GFR CALC 1085167 GFR Afr Amr >60 mL/min 04/17/2017 Unknow n GLYCOSYLATED HEMOGLOBIN TEST 81714 Hgb A1c 85586-9 9.4 % 0 04/17/2017 Unknown IRON 84563 Iron 37 ug/dL 04/17/2017 Unknown VITAMIN B 12 02445 VITAMIN B12 280 pg/mL 04/17/2017 Unkn own THYROID STIMULATING HORMONE 18081 TSH 2.481 uIU/mL 04/17/2017 Unknown COMPREHENSIVE METABOLIC 86904 AST 13 U/L 2016 Unknown COMPREHENSIVE METABOLIC 40276 ALT 12 U/L 2016 Unknown COMPREHENSIVE METABOLIC 49080 BUN 18 mg/dL 2016 Unknown COMPREHENSIVE METABOLIC 73498 ALBUMIN 4.7 g/dL 2016 Unknown COMPREHENSIVE METABOLIC 65332 CHLORIDE 103 mmol/L 04/17 Unknown COMPREHENSIVE METABOLIC 03561 Bili Total 0.4 mg/dL 04/17 Unknown COMPREHENSIVE METABOLIC 82407 ALK PHOS 49 U/L 2016 Unknown COMPREHENSIVE METABOLIC 53193 SODIUM 140 mmol/L 04/17 Unknown COMPREHENSIVE METABOLIC 56796 CREATININE 1.14 mg/dL 03/25 Unknown COMPREHENSIVE METABOLIC 34999 CALCIUM 9.4 mg/dL 2016 Unknown COMPREHENSIVE METABOLIC 67171 POTASSIUM 4.4 mmol/L 04/17 Unknown COMPREHENSIVE METABOLIC 95522 Total Protein 6.7 g/dL Unknown COMPREHENSIVE METABOLIC 60449 Glucose 266 mg/dL 2016 Unknown COMPREHENSIVE METABOLIC 50952 Bicarbonate 25 mmol/L 03/25 Unknown COMPREHENSIVE METABOLIC 87201 AGAP 12 mmol/L 2016 Unknown FERRITIN 48884 FERRITIN 10.0 ng/mL 04/17/2017 Unknown COMPLETE BLOOD COUNT 7621966 WBC 6.8 10e9/L 12/22/19 17 Unknown COMPLETE BLOOD COUNT 0388833 RBC 3.70 10e12/L 2016 Unknown COMPLETE BLOOD COUNT 2847062 HEMOGLOBIN 8.0 g/dL 12/22/19 17 Unknown COMPLETE BLOOD COUNT 5746043 HEMATOCRIT 26.7 % 12/22/19 17 Unknown COMPLETE BLOOD COUNT 2403920 MCV 72.2 fL 7 Unknown COMPLETE BLOOD COUNT 7888151 MCH 21.6 pg 7 Unknown COMPLETE BLOOD COUNT 6191075 MCHC 30.0 g/dL 7 Unknown COMPLETE BLOOD COUNT 9530114 PLATELET COUNT 290 10e9/L Unknown COMPLETE BLOOD COUNT 1030916 Mean Plt Volume 9.3 fL Unknown COMPLETE BLOOD COUNT 7576163 Neut Auto 80.2 % 7 Unknown COMPLETE BLOOD COUNT 6635380 Lymph Auto 9.8 % 12/22/19 17 Unknown COMPLETE BLOOD COUNT 9764880 Curry Auto 8.1 % 7 Unknown COMPLETE BLOOD COUNT 0272987 RDW 17.4 % 7 Unknown COMPLETE BLOOD COUNT 7612599 Eos Auto 1.5 % 7 Unknown COMPLETE BLOOD COUNT 3995507 Baso Auto 0.4 % 7 Unknown COMPLETE BLOOD COUNT 6385984 Neutrophil Abs 5.45 10e9/L Unknown COMPLETE BLOOD COUNT 7077471 Lymphocyte Abs 0.67 10e9/L Unknown COMPLETE BLOOD COUNT 7615970 Monocyte Abs 0.55 10e9/L 11/24 Unknown COMPLETE BLOOD COUNT 9900073 Eosinophil Abs 0.10 10e9/L Unknown COMPLETE BLOOD COUNT 1225657 RDW-SD 44.1 fL 7 Unknown COMPLETE BLOOD COUNT 1989534 Basophil Abs 0.03 10e9/L 11/24 Unknown COMPLETE BLOOD COUNT 9059428 WBC 7.6 10e9/L 12/13/19 17 Unknown COMPLETE BLOOD COUNT 1373219 RBC 3.71 10e12/L 2016 Unknown COMPLETE BLOOD COUNT 7432451 HEMOGLOBIN 8.0 g/dL 12/13/19 17 Unknown COMPLETE BLOOD COUNT 6033543 HEMATOCRIT 27.3 % 12/13/19 17 Unknown COMPLETE BLOOD COUNT 6605948 MCV 73.6 fL 7 Unknown COMPLETE BLOOD COUNT 7801602 MCH 21.6 pg 7 Unknown COMPLETE BLOOD COUNT 9147673 MCHC 29.3 g/dL 7 Unknown COMPLETE BLOOD COUNT 5832085 PLATELET COUNT 330 10e9/L Unknown COMPLETE BLOOD COUNT 3873375 Mean Plt Volume 9.7 fL Unknown COMPLETE BLOOD COUNT 2855036 Neut Auto 73.2 % 7 Unknown COMPLETE BLOOD COUNT 5578447 Lymph Auto 14.5 % 12/13/19 17 Unknown COMPLETE BLOOD COUNT 7046408 Curry Auto 10.5 % 7 Unknown COMPLETE BLOOD COUNT 5654067 RDW 17.3 % 7 Unknown COMPLETE BLOOD COUNT 7753240 Eos Auto 1.3 % 7 Unknown COMPLETE BLOOD COUNT 1438264 Baso Auto 0.5 % 7 Unknown COMPLETE BLOOD COUNT 3954324 Neutrophil Abs 5.56 10e9/L Unknown COMPLETE BLOOD COUNT 1888102 Lymphocyte Abs 1.10 10e9/L Unknown COMPLETE BLOOD COUNT 4327028 Monocyte Abs 0.80 10e9/L 11/23 Unknown COMPLETE BLOOD COUNT 2876013 Eosinophil Abs 0.10 10e9/L Unknown COMPLETE BLOOD COUNT 7354555 RDW-SD 45.2 fL 7 Unknown COMPLETE BLOOD COUNT 7306636 Basophil Abs 0.04 10e9/L 11/23 Unknown IRON 52890 Iron 69 ug/dL 03/09/2016 Unknown VITAMIN B 12 90546 VITAMIN B12 311 pg/mL 03/09/2016 Unkn own MEAN GLUC 5884836 Mean Glucose 260 mg/dL 03/07/2016 Unknow n GLYCOSYLATED HEMOGLOBIN TEST 82853 Hgb A1c 98349-2 10.7 % 0 03/07/2016 Unknown COMPREHENSIVE METABOLIC 35242 AST 14 U/L 2015 Unknown COMPREHENSIVE METABOLIC 48392 ALT 21 U/L 2015 Unknown COMPREHENSIVE METABOLIC 33066 BUN 27 mg/dL 2015 Unknown COMPREHENSIVE METABOLIC 20202 ALBUMIN 4.5 g/dL 2015 Unknown COMPREHENSIVE METABOLIC 01579 CHLORIDE 101 mmol/L 03/06 Unknown COMPREHENSIVE METABOLIC 20770 Bili Total 0.4 mg/dL 03/06 Unknown COMPREHENSIVE METABOLIC 83993 ALK PHOS 49 U/L 2015 Unknown COMPREHENSIVE METABOLIC 77221 SODIUM 136 mmol/L 03/06 Unknown COMPREHENSIVE METABOLIC 86645 CREATININE 1.16 mg/dL 02/22 Unknown COMPREHENSIVE METABOLIC 15380 CALCIUM 9.9 mg/dL 2015 Unknown COMPREHENSIVE METABOLIC 03217 POTASSIUM 4.5 mmol/L 03/06 Unknown COMPREHENSIVE METABOLIC 30547 Total Protein 6.7 g/dL Unknown COMPREHENSIVE METABOLIC 38985 Glucose 245 mg/dL 2015 Unknown COMPREHENSIVE METABOLIC 28334 Bicarbonate 24 mmol/L 02/22 Unknown COMPREHENSIVE METABOLIC 03551 AGAP 11 mmol/L 2015 Unknown THYROID STIMULATING HORMONE 18646 TSH 0.775 uIU/mL 03/06/2016 Unknown TESTOSTERONE TOTAL 57725 Testos Total 96 ng/dL 03/06/20 16 Unknown LIPID GROUP 54291 Cholesterol 146 mg/dL 03/06/2016 Unkno wn LIPID GROUP 50458 Triglyceride 249 mg/dL 03/06/2016 Unkn own LIPID GROUP 81563 HDL CHOLESTEROL 46 mg/dL 03/06/2016 U nknown LIPID GROUP 31670 Chol/HDL Ratio 3.17 ratio 03/06/2016 U nknown LIPID GROUP 92120 NON-HDL Chol 100 mg/dL 03/06/2016 Unkn own LIPID GROUP 12056 LDL Cholesterol 50 mg/dL 03/06/2016 U nknown COMPLETE BLOOD COUNT 7166066 WBC 11.2 10e9/L 016 Unknown COMPLETE BLOOD COUNT 4198004 RBC 3.94 10e12/L 2015 Unknown COMPLETE BLOOD COUNT 4726542 HEMOGLOBIN 11.4 g/dL 03/06/20 16 Unknown COMPLETE BLOOD COUNT 2722938 HEMATOCRIT 33.7 % 03/06/20 16 Unknown COMPLETE BLOOD COUNT 8123818 MCV 85.5 fL 6 Unknown COMPLETE BLOOD COUNT 8472487 MCH 28.9 pg 6 Unknown COMPLETE BLOOD COUNT 2279650 MCHC 33.8 g/dL 6 Unknown COMPLETE BLOOD COUNT 4417157 PLATELET COUNT 204 10e9/L Unknown COMPLETE BLOOD COUNT 5595421 Mean Plt Volume 10.1 fL Unknown COMPLETE BLOOD COUNT 3899100 Neut Auto 85.9 % 6 Unknown COMPLETE BLOOD COUNT 5228181 Lymph Auto 6.8 % 03/06/20 16 Unknown COMPLETE BLOOD COUNT 6648644 Curry Auto 7.0 % 6 Unknown COMPLETE BLOOD COUNT 9795837 RDW 13.7 % 6 Unknown COMPLETE BLOOD COUNT 6165495 Eos Auto 0.1 % 6 Unknown COMPLETE BLOOD COUNT 2073686 Baso Auto 0.2 % 6 Unknown COMPLETE BLOOD COUNT 2326459 Neutrophil Abs 9.62 10e9/L Unknown COMPLETE BLOOD COUNT 4016554 Lymphoctye Abs 0.76 10e9/L Unknown COMPLETE BLOOD COUNT 5680400 Monocyte Abs 0.78 10e9/L 02/22 Unknown COMPLETE BLOOD COUNT 2329117 Eosinophil Abs 0.01 10e9/L Unknown COMPLETE BLOOD COUNT 8654677 RDW-SD 41.9 fL 6 Unknown COMPLETE BLOOD COUNT 0521761 Basophil Abs 0.02 10e9/L 02/22 Unknown FREE T4 50031 T4 Free 0.89 ng/dL 03/06/2016 Unknown GFR CALC 3755367 GFR Non Afr Amr >60 mL/min 03/06/2016 Un known GFR CALC 2359470 GFR Afr Amr >60 mL/min 03/06/2016 Unknow n PSA EQUIMOLAR JONATAN 33029 PSA Total 0.78 ng/mL 6 Unknown FREE T4 62697 FREE T4 0.90 NG/DL 07/01/2015 Unknown LIPID GROUP 32822 HDL TEST 44 MG/DL 07/01/2015 Unknown LIPID GROUP 09394 TRIG 303 MG/DL 07/01/2015 Unknown LIPID GROUP 63572 TEST LDL 56 MG/DL 07/01/2015 Unknown LIPID GROUP 35855 CHOL 161 MG/DL 07/01/2015 Unknown LIPID GROUP 89702 RCHOL/HDL 3.66 RATIO 07/01/2015 Unknow n LIPID GROUP 34753 NON-HDL CH 117 MG/DL 07/01/2015 Unknow n THYROID STIMULATING HORMONE 47703 TSH 1.783 uIU/ML 07/01/2015 Unknown COMPLETE BLOOD COUNT 6224723 WBC 6.6 10e9/L 07/01/20 15 Unknown COMPLETE BLOOD COUNT 7176662 RBC 4.18 10e12/L 2014 Unknown COMPLETE BLOOD COUNT 5552874 HGB 12.2 g/dL 5 Unknown COMPLETE BLOOD COUNT 8705598 HCT DET 37.0 % 5 Unknown COMPLETE BLOOD COUNT 0437363 MCV 88.5 fL 5 Unknown COMPLETE BLOOD COUNT 7566159 MCH 29.2 pg 5 Unknown COMPLETE BLOOD COUNT 5947964 MCHC 33.0 g/dL 5 Unknown COMPLETE BLOOD COUNT 3369219 PLT 224 10e9/L 07/01/20 15 Unknown COMPLETE BLOOD COUNT 7031419 MPV 10.4 fL 5 Unknown COMPLETE BLOOD COUNT 3037504 SUSIE % 72.6 % 5 Unknown COMPLETE BLOOD COUNT 5496811 LY % 14.1 % 5 Unknown COMPLETE BLOOD COUNT 0760364 MON % 10.2 % 5 Unknown COMPLETE BLOOD COUNT 2823349 EOS % 2.6 % 5 Unknown COMPLETE BLOOD COUNT 3277058 BASO % 0.5 % 5 Unknown COMPLETE BLOOD COUNT 3875018 RDW 14.1 % 5 Unknown COMPLETE BLOOD COUNT 9769518 ABS SUSIE 4.79 10e9/L 015 Unknown COMPLETE BLOOD COUNT 7769157 ABS LYMPH 0.93 10e9/L 015 Unknown COMPLETE BLOOD COUNT 7983847 ABS MONO 0.67 10e9/L 015 Unknown COMPLETE BLOOD COUNT 8851461 ABS EOS 0.17 10e9/L 015 Unknown COMPLETE BLOOD COUNT 7914981 ABS BASO 0.03 10e9/L 015 Unknown COMPLETE BLOOD COUNT 1842124 RDW-SD 43.9 fL 5 Unknown PSA EQUIMOLAR JONATAN 97845 PSA EQ 0.73 NG/ML 5 Unknown COMPREHENSIVE METABOLIC 69880 AST 24 U/L 2014 Unknown COMPREHENSIVE METABOLIC 78792 ALT 26 IU/L 2014 Unknown COMPREHENSIVE METABOLIC 08615 BUN 26 MG/DL 2014 Unknown COMPREHENSIVE METABOLIC 28939 ALBUMIN 4.6 GM/DL 2014 Unknown COMPREHENSIVE METABOLIC 31477 CHLORIDE 102 MMOL/L 06/01 Unknown COMPREHENSIVE METABOLIC 49929 BILI TOT 0.5 MG/DL 2014 Unknown COMPREHENSIVE METABOLIC 83404 ALK PHOS 56 U/L 2014 Unknown COMPREHENSIVE METABOLIC 28556 SODIUM 136 MMOL/L 06/01 Unknown COMPREHENSIVE METABOLIC 07951 CREATININE 1.16 MG/DL 04/2015 Unknown COMPREHENSIVE METABOLIC 96803 CALCIUM 9.8 MG/DL 2014 Unknown COMPREHENSIVE METABOLIC 07362 POTASSIUM 4.6 MMOL/L 06/01 Unknown COMPREHENSIVE METABOLIC 07984 PROT TOT 7.4 GM/DL 2014 Unknown COMPREHENSIVE METABOLIC 38712 Glucose 223 MG/DL 2014 Unknown COMPREHENSIVE METABOLIC 34606 BICARB 27 MMOL/L 2014 Unknown COMPREHENSIVE METABOLIC 34604 ANION GAP 7 MEQ/L 2014 Unknown GFR CALC 7993496 GFR AA >60 ML/MIN 06/01/2015 Unknown GFR CALC 9662190 GFR NON-AA >60 ML/MIN 06/01/2015 Unknown GLYCOSYLATED HEMOGLOBIN TEST 21787 A1C HPLC 60519-1 8.9 % 0 06/01/2015 Unknown GFR CALC 9228414 GFR AA >60 ML/MIN 02/25/2015 Unknown GFR CALC 5849613 GFR NON-AA >60 ML/MIN 02/25/2015 Unknown COMPREHENSIVE METABOLIC 33870 AST 24 U/L 2014 Unknown COMPREHENSIVE METABOLIC 94145 ALT 25 IU/L 2014 Unknown COMPREHENSIVE METABOLIC 16554 BUN 14 MG/DL 2014 Unknown COMPREHENSIVE METABOLIC 57929 ALBUMIN 4.5 GM/DL 2014 Unknown COMPREHENSIVE METABOLIC 65986 CHLORIDE 99 MMOL/L 2014 Unknown COMPREHENSIVE METABOLIC 02513 BILI TOT 0.5 MG/DL 2014 Unknown COMPREHENSIVE METABOLIC 10385 ALK PHOS 48 U/L 2014 Unknown COMPREHENSIVE METABOLIC 19257 SODIUM 136 MMOL/L 02/25 Unknown COMPREHENSIVE METABOLIC 70401 CREATININE 0.97 MG/DL 12/2014 Unknown COMPREHENSIVE METABOLIC 32512 CALCIUM 9.9 MG/DL 2014 Unknown COMPREHENSIVE METABOLIC 24886 POTASSIUM 4.4 MMOL/L 02/25 Unknown COMPREHENSIVE METABOLIC 47125 PROT TOT 7.1 GM/DL 2014 Unknown COMPREHENSIVE METABOLIC 58986 Glucose 171 MG/DL 2014 Unknown COMPREHENSIVE METABOLIC 53459 BICARB 25 MMOL/L 2014 Unknown COMPREHENSIVE METABOLIC 54523 ANION GAP 12 MEQ/L 2014 Unknown PROTEIN/CREAT URINE WITH RATIO 21190|97901 PROT R U 19 MG/D L 08/27/2014 Unknown PROTEIN/CREAT URINE WITH RATIO 42462|85622 CREAT R U 111 MG/ DL 08/27/2014 Unknown PROTEIN/CREAT URINE WITH RATIO 60796|80855 XRATIO P/C 171 MG /G 08/27/2014 Unknown MICROALBUMIN URINE RANDOM 68266 MICRL MG/L 34.7 MG/L 12/2013 Unknown MICROALBUMIN URINE RANDOM 65101 XM.ALB/CRE 32.7 MG/GCR 1 10/28/2013 Unknown MICROALBUMIN URINE RANDOM 44601 CREAT MG/D 106 MG/DL 12/2013 Unknown MICROALBUMIN URINE RANDOM 37898 CRE/100 1.06 G/L 12/2013 Unknown COMPLETE BLOOD COUNT [id number] WBC 7.1 10e9/L 08/05/20 14 Unknown COMPLETE BLOOD COUNT [id number] RBC 4.35 10e12/L 2013 Unknown COMPLETE BLOOD COUNT [id number] HGB 12.9 g/dL 4 Unknown COMPLETE BLOOD COUNT [id number] HCT DET 39.4 % 4 Unknown COMPLETE BLOOD COUNT [id number] MCV 90.6 fL 4 Unknown COMPLETE BLOOD COUNT 4151952 MCH 29.7 pg 4 Unknown COMPLETE BLOOD COUNT [id number] MCHC 32.7 g/dL 4 Unknown COMPLETE BLOOD COUNT [id number] PLT 240 10e9/L 08/05/20 14 Unknown COMPLETE BLOOD COUNT [id number] MPV 10.3 fL 4 Unknown COMPLETE BLOOD COUNT [id number] SUSIE % 70.0 % 4 Unknown COMPLETE BLOOD COUNT [id number] LY % 16.4 % 4 Unknown COMPLETE BLOOD COUNT [id number] MON % 9.2 % 4 Unknown COMPLETE BLOOD COUNT [id number] EOS % 3.8 % 4 Unknown COMPLETE BLOOD COUNT [id number] BASO % 0.6 % 4 Unknown COMPLETE BLOOD COUNT 7555958 RDW 13.4 % 4 Unknown COMPLETE BLOOD COUNT [id number] ABS SUSIE 4.97 10e9/L 014 Unknown COMPLETE BLOOD COUNT [id number] ABS LYMPH 1.16 10e9/L 014 Unknown COMPLETE BLOOD COUNT [id number] ABS MONO 0.65 10e9/L 014 Unknown COMPLETE BLOOD COUNT [id number] ABS EOS 0.27 10e9/L 014 Unknown COMPLETE BLOOD COUNT [id number] ABS BASO 0.04 10e9/L 014 Unknown COMPLETE BLOOD COUNT [id number] RDW-SD 43.3 fL 201 4 Unknown FREE T4 14829 FREE T4 1.02 NG/DL 08/05/2014 Unknown GFR CALC [id number] GFR AA >60 ML/MIN 08/05/2014 Unknown GFR CALC [id number] GFR NON-AA >60 ML/MIN 08/05/2014 Unknown GLYCOSYLATED HEMOGLOBIN TEST 07471 A1C HPLC 82786-8 7.7 % 1 10/05/2013 Unknown COMPREHENSIVE METABOLIC 82386 AST 19 U/L 2013 Unknown COMPREHENSIVE METABOLIC 74082 ALT 21 IU/L 2013 Unknown COMPREHENSIVE METABOLIC 45813 BUN 25 MG/DL 2013 Unknown COMPREHENSIVE METABOLIC 66579 ALBUMIN 4.6 GM/DL 2013 Unknown COMPREHENSIVE METABOLIC 70692 CHLORIDE 103 MMOL/L 08/05 Unknown COMPREHENSIVE METABOLIC 62795 BILI TOT 0.4 MG/DL 2013 Unknown COMPREHENSIVE METABOLIC 14002 ALK PHOS 45 U/L 2013 Unknown COMPREHENSIVE METABOLIC 35154 SODIUM 138 MMOL/L 08/05 Unknown COMPREHENSIVE METABOLIC 99521 CREATININE 1.01 MG/DL 07/25 Unknown COMPREHENSIVE METABOLIC 48558 CALCIUM 9.8 MG/DL 2013 Unknown COMPREHENSIVE METABOLIC 12369 POTASSIUM 4.7 MMOL/L 08/05 Unknown COMPREHENSIVE METABOLIC 82697 PROT TOT 7.0 GM/DL 2013 Unknown COMPREHENSIVE METABOLIC 34484 Glucose 145 MG/DL 2013 Unknown COMPREHENSIVE METABOLIC 05283 BICARB 27 MMOL/L 2013 Unknown COMPREHENSIVE METABOLIC 28621 ANION GAP 8 MEQ/L 2013 Unknown THYROID STIMULATING HORMONE 31469 TSH 1.922 uIU/ML 08/05/2014 Unknown LIPID GROUP 31939 HDL TEST 47 MG/DL 08/05/2014 Unknown LIPID GROUP 18126 TRIG 224 MG/DL 08/05/2014 Unknown LIPID GROUP 03609 TEST LDL 125 MG/DL 08/05/2014 Unknown LIPID GROUP 33160 CHOL 217 MG/DL 08/05/2014 Unknown LIPID GROUP 13493 RCHOL/HDL 4.62 RATIO 08/05/2014 Unknow n LIPID GROUP 84319 NON-HDL CH 170 MG/DL 08/05/2014 Unknow n MYCOPLASMA ANTIBODY, IFA [id number] MYCO G IFA 1:256 03/24 Unknown MYCOPLASMA ANTIBODY, IFA [id number] MYCO M IFA <1:10 03/24 Unknown MYCOPLASMA ANTIBODY, IFA [id number] MYCO INTER SEE BELO 03/24 Unknown COMPLETE BLOOD COUNT 4590204 WBC 8.3 10e9/L 04/09/20 13 Unknown COMPLETE BLOOD COUNT 5105135 RBC 4.61 10e12/L 2012 Unknown COMPLETE BLOOD COUNT 0318983 HGB 13.9 g/dL 3 Unknown COMPLETE BLOOD COUNT 6206276 HCT DET 41.2 % 3 Unknown COMPLETE BLOOD COUNT 6844107 MCV 89.4 fL 3 Unknown COMPLETE BLOOD COUNT 6960794 MCH 30.2 pg 3 Unknown COMPLETE BLOOD COUNT 5815262 MCHC 33.7 g/dL 3 Unknown COMPLETE BLOOD COUNT 3422350 PLT 249 10e9/L 04/09/20 13 Unknown COMPLETE BLOOD COUNT 9066960 MPV 9.8 fL 3 Unknown COMPLETE BLOOD COUNT 0943009 SUSIE % 65.9 % 3 Unknown COMPLETE BLOOD COUNT 0264884 LY % 19.8 % 3 Unknown COMPLETE BLOOD COUNT 8838330 MON % 10.8 % 3 Unknown COMPLETE BLOOD COUNT 2145865 EOS % 3.0 % 3 Unknown COMPLETE BLOOD COUNT 8505631 BASO % 0.5 % 3 Unknown COMPLETE BLOOD COUNT 8168621 RDW 14.0 % 3 Unknown COMPLETE BLOOD COUNT [id number] ABS SUSIE 5.47 10e9/L 013 Unknown COMPLETE BLOOD COUNT 7384668 ABS LYMPH 1.64 10e9/L 013 Unknown COMPLETE BLOOD COUNT 6297602 ABS MONO 0.90 10e9/L 013 Unknown COMPLETE BLOOD COUNT 4447122 ABS EOS 0.25 10e9/L 013 Unknown COMPLETE BLOOD COUNT 1048170 ABS BASO 0.04 10e9/L 013 Unknown COMPLETE BLOOD COUNT 6722668 RDW-SD 45.0 fL 3 Unknown URIC ACID 05184 URIC ACID 5.3 MG/DL 02/12/2013 Unknown FREE T4 96447 FREE T4 1.09 NG/DL 02/11/2013 Unknown COMPLETE BLOOD COUNT 6795236 WBC 6.3 10e9/L 02/12/20 13 Unknown COMPLETE BLOOD COUNT [id number] RBC 4.29 10e12/L 2012 Unknown COMPLETE BLOOD COUNT 8886705 HGB 13.1 g/dL 3 Unknown COMPLETE BLOOD COUNT 4368372 HCT DET 39.7 % 3 Unknown COMPLETE BLOOD COUNT 3652360 MCV 92.5 fL 3 Unknown COMPLETE BLOOD COUNT 1666479 MCH 30.5 pg 3 Unknown COMPLETE BLOOD COUNT 8881064 MCHC 33.0 g/dL 3 Unknown COMPLETE BLOOD COUNT 0414621 PLT 247 10e9/L 02/12/20 13 Unknown COMPLETE BLOOD COUNT 2733888 MPV 10.0 fL 3 Unknown COMPLETE BLOOD COUNT 9787561 SUSIE % 73.4 % 3 Unknown COMPLETE BLOOD COUNT 3426512 LY % 13.5 % 3 Unknown COMPLETE BLOOD COUNT 0725949 MON % 9.4 % 3 Unknown COMPLETE BLOOD COUNT 0101977 EOS % 2.9 % 3 Unknown COMPLETE BLOOD COUNT 5178647 BASO % 0.8 % 3 Unknown COMPLETE BLOOD COUNT 0287237 RDW 13.8 % 3 Unknown COMPLETE BLOOD COUNT [id number] ABS SUSIE 4.62 10e9/L 013 Unknown COMPLETE BLOOD COUNT [id number] ABS LYMPH 0.85 10e9/L 013 Unknown COMPLETE BLOOD COUNT [id number] ABS MONO 0.59 10e9/L 013 Unknown COMPLETE BLOOD COUNT 3537950 ABS EOS 0.18 10e9/L 013 Unknown COMPLETE BLOOD COUNT [id number] ABS BASO 0.05 10e9/L 013 Unknown COMPLETE BLOOD COUNT 1102857 RDW-SD 45.7 fL 3 Unknown HEMOGLOBIN A1C (GLYCOSYLATED) 6674114 A1C HPLC 05612-8 7.5 % 02/11/2013 Unknown THYROID STIMULATING HORMONE 98231 TSH 1.466 uIU/ML 02/11/2013 Unknown VITAMIN B 12 FOLIC ACID 82274|36191 VIT B 12 625 PG/ML 01/23 Unknown VITAMIN B 12 FOLIC ACID 20746|73591 FOLIC ACID 15.6 NG/ML Unknown COMPREHENSIVE METABOLIC 73462 AST 18 U/L 2012 Unknown COMPREHENSIVE METABOLIC 96871 ALT 21 IU/L 2012 Unknown COMPREHENSIVE METABOLIC 85713 BUN 25 MG/DL 2012 Unknown COMPREHENSIVE METABOLIC 54602 ALBUMIN 4.6 GM/DL 2012 Unknown COMPREHENSIVE METABOLIC 64691 CHLORIDE 103 MMOL/L 02/11 Unknown COMPREHENSIVE METABOLIC 17443 BILI TOT 0.3 MG/DL 2012 Unknown COMPREHENSIVE METABOLIC 99046 ALK PHOS 53 U/L 2012 Unknown COMPREHENSIVE METABOLIC 97982 SODIUM 136 MMOL/L 02/11 Unknown COMPREHENSIVE METABOLIC 77502 CREATININE 1.16 MG/DL 01/23 Unknown COMPREHENSIVE METABOLIC 90204 CALCIUM 10.0 MG/DL 02/11 Unknown COMPREHENSIVE METABOLIC 83755 POTASSIUM 4.9 MMOL/L 02/11 Unknown COMPREHENSIVE METABOLIC 16979 PROT TOT 7.0 GM/DL 2012 Unknown COMPREHENSIVE METABOLIC 53489 Glucose 192 MG/DL 2012 Unknown COMPREHENSIVE METABOLIC 97624 BICARB 26 MMOL/L 2012 Unknown COMPREHENSIVE METABOLIC 35478 ANION GAP 7 MEQ/L 2012 Unknown GFR CALC 6777043 GFR AA >60 ML/MIN 02/11/2013 Unknown GFR CALC 6360453 GFR NON-AA >60 ML/MIN 02/11/2013 Unknown C-REACTIVE PROTEIN (CRP) QUANT 09169 CRP 2.7 MG/DL 02/11/2013 Unknown GFR CALC 3573426 GFR AA >60 ML/MIN 09/19/2012 Unknown GFR CALC 3042302 GFR NON-AA >60 ML/MIN 09/19/2012 Unknown HEMOGLOBIN A1C (GLYCOSYLATED) 2966934 A1C HPLC 07784-8 7.2 % 09/19/2012 Unknown COMPREHENSIVE METABOLIC 55523 AST 13 U/L 2011 Unknown COMPREHENSIVE METABOLIC 42704 ALT 17 IU/L 2011 Unknown COMPREHENSIVE METABOLIC 11319 BUN 25 MG/DL 2011 Unknown COMPREHENSIVE METABOLIC 43182 ALBUMIN 4.5 GM/DL 2011 Unknown COMPREHENSIVE METABOLIC 41895 CHLORIDE 104 MMOL/L 09/19 Unknown COMPREHENSIVE METABOLIC 97878 BILI TOT 0.3 MG/DL 2011 Unknown COMPREHENSIVE METABOLIC 32655 ALK PHOS 43 U/L 2011 Unknown COMPREHENSIVE METABOLIC 90090 SODIUM 139 MMOL/L 09/19 Unknown COMPREHENSIVE METABOLIC 05149 CREATININE 1.10 MG/DL 08/25 Unknown COMPREHENSIVE METABOLIC 37001 CALCIUM 9.8 MG/DL 2011 Unknown COMPREHENSIVE METABOLIC 61231 POTASSIUM 4.8 MMOL/L 09/19 Unknown COMPREHENSIVE METABOLIC 22628 PROT TOT 6.5 GM/DL 2011 Unknown COMPREHENSIVE METABOLIC 10245 Glucose 148 MG/DL 2011 Unknown COMPREHENSIVE METABOLIC 58020 BICARB 25 MMOL/L 2011 Unknown COMPREHENSIVE METABOLIC 38563 ANION GAP 10 MEQ/L 2011 Unknown LIPID GROUP 29850 HDL TEST 44 MG/DL 09/19/2012 Unknown LIPID GROUP 32794 TRIG 318 MG/DL 09/19/2012 Unknown LIPID GROUP 33988 TEST LDL 100 MG/DL 09/19/2012 Unknown LIPID GROUP 28776 CHOL 208 MG/DL 09/19/2012 Unknown LIPID GROUP 72345 RCHOL/HDL 4.73 RATIO 09/19/2012 Unknow n FREE T4 16913 FREE T4 0.87 NG/DL 05/06/2012 Unknown GLYCOSYLATED HEMOGLOBIN TEST 84627 A1C HPLC 36075-9 6.4 % 0 05/06/2012 Unknown LIPID GROUP 55215 HDL TEST 44 MG/DL 05/06/2012 Unknown LIPID GROUP 87248 TRIG 177 MG/DL 05/06/2012 Unknown LIPID GROUP 68010 TEST LDL 113 MG/DL 05/06/2012 Unknown LIPID GROUP 18841 CHOL 192 MG/DL 05/06/2012 Unknown LIPID GROUP 99295 RCHOL/HDL 4.36 RATIO 05/06/2012 Unknow n THYROID STIMULATING HORMONE 97166 TSH 1.151 uIU/ML 05/06/2012 Unknown COMPLETE BLOOD COUNT 87782 WBC 7.8 10e9/L 05/06/20 12 Unknown COMPLETE BLOOD COUNT 70213 RBC 4.31 10e12/L 2011 Unknown COMPLETE BLOOD COUNT 93726 HGB 12.8 g/dL 2 Unknown COMPLETE BLOOD COUNT 64199 HCT DET 39.1 % 2 Unknown COMPLETE BLOOD COUNT 02760 MCV 90.7 fL 2 Unknown COMPLETE BLOOD COUNT 81346 MCH 29.7 pg 2 Unknown COMPLETE BLOOD COUNT 46928 MCHC 32.7 g/dL 2 Unknown COMPLETE BLOOD COUNT 98107 PLT 207 10e9/L 05/06/20 12 Unknown COMPLETE BLOOD COUNT 14238 MPV 10.2 fL 2 Unknown COMPLETE BLOOD COUNT 66411 SUSIE % 74.2 % 2 Unknown COMPLETE BLOOD COUNT 24346 LY % 12.8 % 2 Unknown COMPLETE BLOOD COUNT 67099 MON % 11.0 % 2 Unknown COMPLETE BLOOD COUNT 30555 EOS % 1.7 % 2 Unknown COMPLETE BLOOD COUNT 39865 BASO % 0.3 % 2 Unknown COMPLETE BLOOD COUNT 28526 RDW 13.7 % 2 Unknown COMPLETE BLOOD COUNT 98688 ABS SUSIE 5.79 10e9/L 012 Unknown COMPLETE BLOOD COUNT 61065 ABS LYMPH 1.00 10e9/L 012 Unknown COMPLETE BLOOD COUNT 01804 ABS MONO 0.86 10e9/L 012 Unknown COMPLETE BLOOD COUNT 09100 ABS EOS 0.13 10e9/L 012 Unknown COMPLETE BLOOD COUNT 03104 ABS BASO 0.02 10e9/L 012 Unknown COMPLETE BLOOD COUNT 58937 RDW-SD 44.4 fL 2 Unknown COMPREHENSIVE METABOLIC 84784 AST 13 U/L 2011 Unknown COMPREHENSIVE METABOLIC 15004 ALT 14 IU/L 2011 Unknown COMPREHENSIVE METABOLIC 59802 BUN 17 MG/DL 2011 Unknown COMPREHENSIVE METABOLIC 55200 ALBUMIN 4.5 GM/DL 2011 Unknown COMPREHENSIVE METABOLIC 13173 CHLORIDE 101 MMOL/L 05/06 Unknown COMPREHENSIVE METABOLIC 29873 BILI TOT 0.5 MG/DL 2011 Unknown COMPREHENSIVE METABOLIC 61132 ALK PHOS 42 U/L 2011 Unknown COMPREHENSIVE METABOLIC 51095 SODIUM 141 MMOL/L 05/06 Unknown COMPREHENSIVE METABOLIC 34293 CREATININE 1.02 MG/DL 04/24 Unknown COMPREHENSIVE METABOLIC 11014 CALCIUM 9.7 MG/DL 2011 Unknown COMPREHENSIVE METABOLIC 98782 POTASSIUM 4.6 MMOL/L 05/06 Unknown COMPREHENSIVE METABOLIC 08418 PROT TOT 6.5 GM/DL 2011 Unknown COMPREHENSIVE METABOLIC 70866 Glucose 139 MG/DL 2011 Unknown COMPREHENSIVE METABOLIC 38464 BICARB 29 MMOL/L 2011 Unknown COMPREHENSIVE METABOLIC 19387 ANION GAP 11 MEQ/L 2011 Unknown GFR CALC 9099132 GFR AA >60 ML/MIN 05/06/2012 Unknown GFR CALC 9753989 GFR NON-AA 54.0L ML/MIN 05/06/2012 Unkno wn GLYCOSYLATED HEMOGLOBIN TEST 71303 A1C HPLC 45180-2 6.6 % 1 09/30/2010 Unknown FREE T4 63273 FREE T4 1.00 NG/DL 07/26/2011 Unknown LIPID GROUP 21774 HDL TEST 40 MG/DL 07/26/2011 Unknown LIPID GROUP 90934 TRIG 136 MG/DL 07/26/2011 Unknown LIPID GROUP 35751 TEST LDL 126 MG/DL 07/26/2011 Unknown LIPID GROUP 64236 CHOL 193 MG/DL 07/26/2011 Unknown LIPID GROUP 62723 RCHOL/HDL 4.83 RATIO 07/26/2011 Unknow n COMPREHENSIVE METABOLIC 51441 AST 15 U/L 2010 Unknown COMPREHENSIVE METABOLIC 31933 ALT 13 IU/L 2010 Unknown COMPREHENSIVE METABOLIC 50108 BUN 17 MG/DL 2010 Unknown COMPREHENSIVE METABOLIC 39810 ALBUMIN 4.4 GM/DL 2010 Unknown COMPREHENSIVE METABOLIC 12622 CHLORIDE 102 MMOL/L 07/26 Unknown COMPREHENSIVE METABOLIC 71510 BILI TOT 0.5 MG/DL 2010 Unknown COMPREHENSIVE METABOLIC 15544 ALK PHOS 54 U/L 2010 Unknown COMPREHENSIVE METABOLIC 88941 SODIUM 138 MMOL/L 07/26 Unknown COMPREHENSIVE METABOLIC 29770 CREATININE 0.95 MG/DL 10/2010 Unknown COMPREHENSIVE METABOLIC 96984 CALCIUM 9.3 MG/DL 2010 Unknown COMPREHENSIVE METABOLIC 00815 POTASSIUM 4.3 MMOL/L 07/26 Unknown COMPREHENSIVE METABOLIC 04206 PROT TOT 6.7 GM/DL 2010 Unknown COMPREHENSIVE METABOLIC 56507 Glucose 116 MG/DL 2010 Unknown COMPREHENSIVE METABOLIC 88568 BICARB 28 MMOL/L 2010 Unknown COMPREHENSIVE METABOLIC 31437 ANION GAP 8 MEQ/L 2010 Unknown PSA EQUIMOLAR JONATAN 53296 PSA EQ 1.01 NG/ML 1 Unknown COMPLETE BLOOD COUNT 38857 WBC 6.4 10e9/L 07/26/20 11 Unknown COMPLETE BLOOD COUNT 28191 RBC 4.43 10e12/L 2010 Unknown COMPLETE BLOOD COUNT 18648 HGB 13.2 g/dL 1 Unknown COMPLETE BLOOD COUNT 51371 HCT DET 39.3 % 1 Unknown COMPLETE BLOOD COUNT 54720 MCV 88.7 fL 1 Unknown COMPLETE BLOOD COUNT 94133 MCH 29.8 pg 1 Unknown COMPLETE BLOOD COUNT 30304 MCHC 33.6 g/dL 1 Unknown COMPLETE BLOOD COUNT 42418 PLT 226 10e9/L 07/26/20 11 Unknown COMPLETE BLOOD COUNT 34242 MPV 9.9 fL 1 Unknown COMPLETE BLOOD COUNT 22491 SUSIE % 65.4 % 1 Unknown COMPLETE BLOOD COUNT 69148 LY % 19.7 % 1 Unknown COMPLETE BLOOD COUNT 53712 MON % 10.8 % 1 Unknown COMPLETE BLOOD COUNT 60788 EOS % 3.6 % 1 Unknown COMPLETE BLOOD COUNT 23360 BASO % 0.5 % 1 Unknown COMPLETE BLOOD COUNT 09150 RDW 13.2 % 1 Unknown COMPLETE BLOOD COUNT 99740 ABS SUSIE 4.19 10e9/L 011 Unknown COMPLETE BLOOD COUNT 46957 ABS LYMPH 1.26 10e9/L 011 Unknown COMPLETE BLOOD COUNT 97637 ABS MONO 0.69 10e9/L 011 Unknown COMPLETE BLOOD COUNT 67987 ABS EOS 0.23 10e9/L 011 Unknown COMPLETE BLOOD COUNT 39469 ABS BASO 0.03 10e9/L 011 Unknown COMPLETE BLOOD COUNT 86934 RDW-SD 41.7 fL 1 Unknown THYROID STIMULATING HORMONE 11598 TSH 1.345 uIU/ML 07/26/2011 Unknown GFR CALC 0299323 GFR AA >60 ML/MIN 07/26/2011 Unknown GFR CALC 0363797 GFR NON-AA >60 ML/MIN 07/26/2011 Unknown BRAIN NATRIURETIC PEPTIDE(BNP) 56115 BRAIN PEP 23 pg/mL 01/19/2011 Unknown CANCEL 6278251 CANCEL FOOTNOTE 01/18/2011 Unknown TESTOSTERONE TOTAL 90901 TESTOS TO 138 NG/DL 12/19/2010 Unknown COMPLETE BLOOD COUNT 27379 WBC 8.4 10e9/L 12/08/19 11 Unknown COMPLETE BLOOD COUNT 75089 RBC 4.40 10e12/L 2010 Unknown COMPLETE BLOOD COUNT 51811 HGB 13.3 g/dL 1 Unknown COMPLETE BLOOD COUNT 25388 HCT DET 39.8 % 1 Unknown COMPLETE BLOOD COUNT 21860 MCV 90.5 fL 1 Unknown COMPLETE BLOOD COUNT 76260 MCH 30.2 pg 1 Unknown COMPLETE BLOOD COUNT 29074 MCHC 33.4 g/dL 1 Unknown COMPLETE BLOOD COUNT 72041 PLT 201 10e9/L 12/08/19 11 Unknown COMPLETE BLOOD COUNT 72003 MPV 10.6 fL 1 Unknown COMPLETE BLOOD COUNT 95876 SUSIE % 72.5 % 1 Unknown COMPLETE BLOOD COUNT 08327 LY % 14.8 % 1 Unknown COMPLETE BLOOD COUNT 31591 MON % 10.6 % 1 Unknown COMPLETE BLOOD COUNT 05796 EOS % 1.7 % 1 Unknown COMPLETE BLOOD COUNT 12020 BASO % 0.4 % 1 Unknown COMPLETE BLOOD COUNT 56840 RDW 13.7 % 1 Unknown COMPLETE BLOOD COUNT 12873 ABS SUSIE 6.09 10e9/L 011 Unknown COMPLETE BLOOD COUNT 53577 ABS LYMPH 1.24 10e9/L 011 Unknown COMPLETE BLOOD COUNT 42475 ABS MONO 0.89 10e9/L 011 Unknown COMPLETE BLOOD COUNT 87929 ABS EOS 0.14 10e9/L 011 Unknown COMPLETE BLOOD COUNT 20155 ABS BASO 0.03 10e9/L 011 Unknown COMPLETE BLOOD COUNT 03398 RDW-SD 44.0 fL 1 Unknown LIPID GROUP 24238 HDL TEST 40 MG/DL 12/07/2010 Unknown LIPID GROUP 55753 TRIG 383 MG/DL 12/07/2010 Unknown LIPID GROUP 99360 TEST LDL 82 MG/DL 12/07/2010 Unknown LIPID GROUP 03037 CHOL 199 MG/DL 12/07/2010 Unknown LIPID GROUP 27840 RCHOL/HDL 4.98 RATIO 12/07/2010 Unknow n GFR CALC 2821166 GFR AA >60 ML/MIN 12/07/2010 Unknown GFR CALC 5550866 GFR NON-AA >60 ML/MIN 12/07/2010 Unknown COMPREHENSIVE METABOLIC 97033 AST 29 U/L 2010 Unknown COMPREHENSIVE METABOLIC 38528 ALT 39 IU/L 2010 Unknown COMPREHENSIVE METABOLIC 67619 BUN 17 MG/DL 2010 Unknown COMPREHENSIVE METABOLIC 32605 ALBUMIN 4.9 GM/DL 2010 Unknown COMPREHENSIVE METABOLIC 52091 CHLORIDE 100 MMOL/L 12/07 Unknown COMPREHENSIVE METABOLIC 27850 BILI TOT 0.3 MG/DL 2010 Unknown COMPREHENSIVE METABOLIC 63846 ALK PHOS 53 U/L 2010 Unknown COMPREHENSIVE METABOLIC 02944 SODIUM 137 MMOL/L 12/07 Unknown COMPREHENSIVE METABOLIC 17753 CREATININE 0.98 MG/DL 11/22 Unknown COMPREHENSIVE METABOLIC 81451 CALCIUM 9.5 MG/DL 2010 Unknown COMPREHENSIVE METABOLIC 75064 POTASSIUM 4.3 MMOL/L 12/07 Unknown COMPREHENSIVE METABOLIC 50781 PROT TOT 6.6 GM/DL 2010 Unknown COMPREHENSIVE METABOLIC 12274 Glucose 176 MG/DL 2010 Unknown COMPREHENSIVE METABOLIC 93066 BICARB 28 MMOL/L 2010 Unknown COMPREHENSIVE METABOLIC 36963 ANION GAP 9 MEQ/L 2010 Unknown PSA EQUIMOLAR JONATAN 34991 PSA EQ 0.65 NG/ML 1 Unknown HEMOGLOBIN A1C (GLYCOSYLATED) 82966 A1C HPLC 59864-8 6.9 % 12/07/2010 Unknown Procedures Procedure Codes Date FLU VACC PRSV FREE INC ANTIG 65 AND OLDER CPT-4: 71967 08/07/2019 FLU VACC PRSV FREE INC ANTIG 65 AND OLDER CPT-4: 90060 08/07/2019 ADMIN INFLUENZA VIRUS VAC CPT-4: G0008 08/07/2019 THER/PROPH/DIAG INJ SC/IM CPT-4: 68597 07/14/2019 METHYLPREDNISOLONE INJECTION CPT-4: J2930 07/14/2019 ROUTINE VENIPUNCTURE CPT-4: 06192 06/17/2019 ASSAY THYROID STIM HORMONE CPT-4: 66113 06/17/2019 COMPREHEN METABOLIC PANEL CPT-4: 23503 06/17/2019 COMPLETE CBC W/AUTO DIFF WBC CPT-4: 02275 06/17/2019 ASSAY OF IRON CPT-4: 65382 06/17/2019 VITAMIN B-12 CPT-4: 68250 06/17/2019 RBC SED RATE AUTOMATED CPT-4: 44314 06/17/2019 THER/PROPH/DIAG INJ SC/IM CPT-4: 67429 06/10/2019 THER/PROPH/DIAG INJ SC/IM CPT-4: 97674 06/02/2019 THER/PROPH/DIAG INJ SC/IM CPT-4: 26956 05/27/2019 THER/PROPH/DIAG INJ SC/IM CPT-4: 50648 05/12/2019 ROUTINE VENIPUNCTURE CPT-4: 78138 05/08/2019 COMPREHEN METABOLIC PANEL CPT-4: 04656 05/08/2019 COMPLETE CBC W/AUTO DIFF WBC CPT-4: 16906 05/08/2019 A1C HPLC CPT-4: 38716 05/08/2019 VITAMIN D TOTAL (25 HYDROXY) CPT-4: 50253 05/08/2019 ASSAY OF IRON CPT-4: 66937 05/08/2019 ASSAY OF FERRITIN CPT-4: 15657 05/08/2019 VITAMIN B-12 CPT-4: 47276 05/08/2019 THER/PROPH/DIAG INJ SC/IM CPT-4: 30919 03/21/2019 METHYLPREDNISOLONE INJECTION CPT-4: J2930 03/21/2019 THER/PROPH/DIAG INJ SC/IM CPT-4: 65025 03/13/2019 METHYLPREDNISOLONE INJECTION CPT-4: J2930 03/13/2019 THER/PROPH/DIAG INJ SC/IM CPT-4: 58607 12/25/2018 METHYLPREDNISOLONE INJECTION CPT-4: J2930 12/25/2018 ROUTINE VENIPUNCTURE CPT-4: 04093 12/09/2018 ASSAY OF FREE THYROXINE CPT-4: 86998 12/09/2018 ASSAY THYROID STIM HORMONE CPT-4: 73969 12/09/2018 COMPREHEN METABOLIC PANEL CPT-4: 79910 12/09/2018 COMPLETE CBC W/AUTO DIFF WBC CPT-4: 98122 12/09/2018 LIPID PANEL CPT-4: 36073 12/09/2018 A1C HPLC CPT-4: 26414 12/09/2018 PRESCRIP TRANSMIT VIA ERX SY CPT-4: G8553 08/21/2018 PRESCRIP TRANSMIT VIA ERX SY CPT-4: G8553 08/07/2018 THER/PROPH/DIAG INJ SC/IM CPT-4: 96097 05/23/2018 METHYLPREDNISOLONE INJECTION CPT-4: J2930 05/23/2018 PRESCRIP TRANSMIT VIA ERX SY CPT-4: G8553 05/02/2018 THER/PROPH/DIAG INJ SC/IM CPT-4: 68509 04/29/2018 METHYLPREDNISOLONE INJECTION CPT-4: J2930 04/29/2018 DEXAMETHASONE SODIUM PHOS CPT-4: J1100 04/22/2018 THER/PROPH/DIAG INJ SC/IM CPT-4: 31412 04/22/2018 TRIAMCINOLONE ACET INJ NOS CPT-4: J3301 04/22/2018 PRESCRIP TRANSMIT VIA ERX SY CPT-4: G8553 04/22/2018 PRESCRIP TRANSMIT VIA ERX SY CPT-4: G8553 01/23/2018 URINALYSIS NONAUTO W/O SCOPE CPT-4: 49413 01/02/2018 URINE CULTURE/ COLONY COUNT CPT-4: 99361 01/02/2018 PRESCRIP TRANSMIT VIA ERX SY CPT-4: G8553 01/02/2018 PRESCRIP TRANSMIT VIA ERX SY CPT-4: G8553 12/28/2017 PRESCRIP TRANSMIT VIA ERX SY CPT-4: G8553 12/21/2017 CEFTRIAXONE SODIUM INJECTION CPT-4: J0696 12/17/2017 THER/PROPH/DIAG INJ SC/IM CPT-4: 91897 12/17/2017 THER/PROPH/DIAG INJ SC/IM CPT-4: 37508 12/17/2017 TRIAMCINOLONE ACET INJ NOS CPT-4: J3301 12/17/2017 PRESCRIP TRANSMIT VIA ERX SY CPT-4: G8553 12/17/2017 DRAIN/INJECT JOINT/BURSA CPT-4: 40175 12/11/2017 TRIAMCINOLONE ACET INJ NOS CPT-4: J3301 12/11/2017 DEXAMETHASONE SODIUM PHOS CPT-4: J1100 12/11/2017 DESTRUCT PREMALG LESION (Cryosurgery) CPT-4: 58677 PRESCRIP TRANSMIT VIA ERX SY CPT-4: G8553 10/17/2017 DEXAMETHASONE SODIUM PHOS CPT-4: J1100 08/02/2017 THER/PROPH/DIAG INJ SC/IM CPT-4: 73672 08/02/2017 TRIAMCINOLONE ACET INJ NOS CPT-4: J3301 08/02/2017 PRESCRIP TRANSMIT VIA ERX SY CPT-4: G8553 08/02/2017 PNEUMOCOCCAL VACC 23 OLIVIA IM CPT-4: 99371 07/24/2017 ADMIN PNEUMOCOCCAL VACCINE CPT-4: G0009 07/24/2017 ALBUTEROL NON-COMP UNIT CPT-4: J7613 07/02/2017 AIRWAY INHALATION TREATMENT CPT-4: 40885 07/02/2017 THER/PROPH/DIAG INJ SC/IM CPT-4: 30792 07/02/2017 METHYLPREDNISOLONE INJECTION CPT-4: J2930 07/02/2017 PRESCRIP TRANSMIT VIA ERX SY CPT-4: G8553 05/29/2017 ROUTINE VENIPUNCTURE CPT-4: 86297 04/17/2017 ASSAY OF IRON CPT-4: 22068 04/17/2017 VITAMIN B-12 CPT-4: 88502 04/17/2017 COMPREHEN METABOLIC PANEL CPT-4: 54605 04/17/2017 COMPLETE CBC W/AUTO DIFF WBC CPT-4: 39294 04/17/2017 ASSAY OF FERRITIN CPT-4: 97270 04/17/2017 ASSAY THYROID STIM HORMONE CPT-4: 77616 04/17/2017 A1C HPLC CPT-4: 92182 04/17/2017 DRAIN/INJECT JOINT/BURSA CPT-4: 99665 02/01/2017 TRIAMCINOLONE ACET INJ NOS CPT-4: J3301 02/01/2017 DEXAMETHASONE SODIUM PHOS CPT-4: J1100 02/01/2017 ROUTINE VENIPUNCTURE CPT-4: 09471 12/27/2016 COMPLETE CBC W/AUTO DIFF WBC CPT-4: 81395 12/27/2016 ROUTINE VENIPUNCTURE CPT-4: 28789 12/21/2016 COMPLETE CBC W/AUTO DIFF WBC CPT-4: 50302 12/21/2016 ROUTINE VENIPUNCTURE CPT-4: 27520 12/12/2016 COMPLETE CBC W/AUTO DIFF WBC CPT-4: 95061 12/12/2016 PRESCRIP TRANSMIT VIA ERX SY CPT-4: G8553 10/31/2016 PRESCRIP TRANSMIT VIA ERX SY CPT-4: G8553 10/03/2016 PRESCRIP TRANSMIT VIA ERX SY CPT-4: G8553 09/04/2016 DESTRUCT PREMALG LESION (Cryosurgery) CPT-4: 04244 DESTRUCT PREMALG LES 2-14 CPT-4: 99786 08/22/2016 PRESCRIP TRANSMIT VIA ERX SY CPT-4: G8553 08/10/2016 PRESCRIP TRANSMIT VIA ERX SY CPT-4: G8553 07/06/2016 FLU VACC PRSV FREE INC ANTIG 65 AND OLDER CPT-4: 40514 06/13/2016 PNEUMOCOCCAL VACC 13 OLIVIA IM CPT-4: 01045 06/13/2016 ADMIN INFLUENZA VIRUS VAC CPT-4: G0008 06/13/2016 ADMIN PNEUMOCOCCAL VACCINE CPT-4: G0009 06/13/2016 CERUM REMOVAL CPT-4: 18306 04/05/2016 PRESCRIP TRANSMIT VIA ERX SY CPT-4: G8553 04/03/2016 ROUTINE VENIPUNCTURE CPT-4: 09647 03/06/2016 ASSAY OF FREE THYROXINE CPT-4: 00977 03/06/2016 ASSAY THYROID STIM HORMONE CPT-4: 82590 03/06/2016 COMPREHEN METABOLIC PANEL CPT-4: 47981 03/06/2016 COMPLETE CBC W/AUTO DIFF WBC CPT-4: 97464 03/06/2016 LIPID PANEL CPT-4: 48772 03/06/2016 ASSAY OF PSA TOTAL CPT-4: 41615 03/06/2016 TESTOSTERONE TOTAL - MALE CPT-4: 98818 03/06/2016 A1C HPLC CPT-4: 75856 03/06/2016 ASSAY OF IRON CPT-4: 77586 03/06/2016 VITAMIN B-12 CPT-4: 30035 03/06/2016 INJ TENDON SHEATH/LIGAMENT CPT-4: 95733 02/17/2016 TRIAMCINOLONE ACET INJ NOS CPT-4: J3301 02/17/2016 DEXAMETHASONE SODIUM PHOS CPT-4: J1100 02/17/2016 PRESCRIP TRANSMIT VIA ERX SY CPT-4: G8553 01/31/2016 PRESCRIP TRANSMIT VIA ERX SY CPT-4: G8553 12/30/2015 PRESCRIP TRANSMIT VIA ERX SY CPT-4: G8553 12/06/2015 PRESCRIP TRANSMIT VIA ERX SY CPT-4: G8553 11/15/2015 PPPS, subseq visit CPT-4: G0439 10/05/2015 MICROALBUMIN QUANTITATIVE CPT-4: 58540 10/05/2015 PROTEIN/CREAT URINE WITH RATIO CPT-4: 74974|76824 6 ROUTINE VENIPUNCTURE CPT-4: 24170 07/01/2015 ASSAY OF FREE THYROXINE CPT-4: 06244 07/01/2015 ASSAY THYROID STIM HORMONE CPT-4: 98258 07/01/2015 COMPLETE CBC W/AUTO DIFF WBC CPT-4: 86414 07/01/2015 LIPID PANEL CPT-4: 50385 07/01/2015 ASSAY OF PSA TOTAL CPT-4: 67917 07/01/2015 AEROBIC WOUND CULTURE & STN CPT-4: 18748 06/28/2015 PRESCRIP TRANSMIT VIA ERX SY CPT-4: G8553 06/28/2015 AEROBIC WOUND CULTURE & STN CPT-4: 94014 06/03/2015 PRESCRIP TRANSMIT VIA ERX SY CPT-4: G8553 06/03/2015 ROUTINE VENIPUNCTURE CPT-4: 86104 06/01/2015 COMPREHEN METABOLIC PANEL CPT-4: 05017 06/01/2015 A1C HPLC CPT-4: 93901 06/01/2015 COMPREHEN METABOLIC PANEL CPT-4: 34232 02/25/2015 A1C HPLC CPT-4: 13142 02/25/2015 DESTRUCT PREMALG LESION (Cryosurgery) CPT-4: 26249 PROTEIN/CREAT URINE WITH RATIO CPT-4: 88270|33499 5 MICROALBUMIN QUANTITATIVE CPT-4: 04013 10/27/2014 INFLUENZA ASSAY W/OPTIC CPT-4: 91575 10/21/2014 PRESCRIP TRANSMIT VIA ERX SY CPT-4: G8553 10/06/2014 PRESCRIP TRANSMIT VIA ERX SY CPT-4: G8553 09/21/2014 PRESCRIP TRANSMIT VIA ERX SY CPT-4: G8553 09/02/2014 MICROALBUMIN QUANTITATIVE CPT-4: 51697 08/27/2014 PROTEIN/CREAT URINE WITH RATIO CPT-4: 10410|08610 4 PPPS, subseq visit CPT-4: G0439 08/10/2014 ROUTINE VENIPUNCTURE CPT-4: 77871 08/05/2014 ASSAY OF FREE THYROXINE CPT-4: 78604 08/05/2014 ASSAY THYROID STIM HORMONE CPT-4: 44300 08/05/2014 COMPREHEN METABOLIC PANEL CPT-4: 88332 08/05/2014 COMPLETE CBC W/AUTO DIFF WBC CPT-4: 36365 08/05/2014 LIPID PANEL CPT-4: 25304 08/05/2014 A1C HPLC CPT-4: 04209 08/05/2014 FLUZONE, 5ML (Medicare) CPT-4: Q2038 08/05/2014 ADMIN INFLUENZA VIRUS VAC CPT-4: G0008 08/05/2014 METHYLPREDNISOLONE 40 MG INJ CPT-4: J1030 12/16/2013 TRIAMCINOLONE ACET INJ NOS CPT-4: J3301 12/16/2013 DRAIN/INJECT JOINT/BURSA CPT-4: 74182 12/16/2013 PRESCRIP TRANSMIT VIA ERX SY CPT-4: G8553 10/09/2013 THER/PROPH/DIAG INJ SC/IM CPT-4: 11597 09/18/2013 METHYLPREDNISOLONE 40 MG INJ CPT-4: J1030 09/18/2013 TRIAMCINOLONE ACET INJ NOS CPT-4: J3301 09/18/2013 PRESCRIP TRANSMIT VIA ERX SY CPT-4: G8553 09/18/2013 PRESCRIP TRANSMIT VIA ERX SY CPT-4: G8553 08/13/2013 ROUTINE VENIPUNCTURE CPT-4: 91285 06/25/2013 ASSAY OF FREE THYROXINE CPT-4: 74551 06/25/2013 ASSAY THYROID STIM HORMONE CPT-4: 57127 06/25/2013 COMPREHEN METABOLIC PANEL CPT-4: 73422 06/25/2013 COMPLETE CBC W/AUTO DIFF WBC CPT-4: 41302 06/25/2013 LIPID PANEL CPT-4: 28498 06/25/2013 A1C GLYCOSYLATED HEMOGLOBIN TEST CPT-4: 77969 013 ROUTINE VENIPUNCTURE CPT-4: 71721 04/09/2013 COMPLETE CBC W/AUTO DIFF WBC CPT-4: 52784 04/09/2013 MYCOPLASMA ANTIBODY, IFA CPT-4: 68453R4 04/09/2013 ROUTINE VENIPUNCTURE CPT-4: 95605 02/11/2013 ASSAY OF FREE THYROXINE CPT-4: 26237 02/11/2013 ASSAY THYROID STIM HORMONE CPT-4: 27828 02/11/2013 COMPREHEN METABOLIC PANEL CPT-4: 34183 02/11/2013 COMPLETE CBC W/AUTO DIFF WBC CPT-4: 28048 02/11/2013 VITAMIN B 12 FOLIC ACID CPT-4: 30558|15957 02/11/2013 C-REACTIVE PROTEIN CPT-4: 17870 02/11/2013 A1C GLYCOSYLATED HEMOGLOBIN TEST CPT-4: 57480 013 ASSAY OF BLOOD/URIC ACID CPT-4: 76808 02/11/2013 CEFTRIAXONE SODIUM INJECTION CPT-4: J0696 01/31/2013 THER/PROPH/DIAG INJ SC/IM CPT-4: 07549 01/31/2013 THER/PROPH/DIAG INJ SC/IM CPT-4: 25675 01/31/2013 METHYLPREDNISOLONE 40 MG INJ CPT-4: J1030 01/31/2013 TRIAMCINOLONE ACET INJ NOS CPT-4: J3301 01/31/2013 ROUTINE VENIPUNCTURE CPT-4: 04871 09/19/2012 COMPREHEN METABOLIC PANEL CPT-4: 42311 09/19/2012 LIPID PANEL CPT-4: 11293 09/19/2012 A1C GLYCOSYLATED HEMOGLOBIN TEST CPT-4: 49609 012 PNEUMOCOCCAL VACC 23 OLIVIA IM CPT-4: 12933 07/10/2012 FLUZONE, 5ML (Medicare) CPT-4: Q2038 07/10/2012 ADMIN INFLUENZA VIRUS VAC CPT-4: G0008 07/10/2012 ADMIN PNEUMOCOCCAL VACCINE CPT-4: G0009 07/10/2012 ROUTINE VENIPUNCTURE CPT-4: 36992 05/06/2012 ASSAY OF FREE THYROXINE CPT-4: 69152 05/06/2012 ASSAY THYROID STIM HORMONE CPT-4: 98495 05/06/2012 COMPREHEN METABOLIC PANEL CPT-4: 79719 05/06/2012 COMPLETE CBC W/AUTO DIFF WBC CPT-4: 40814 05/06/2012 LIPID PANEL CPT-4: 03498 05/06/2012 A1C GLYCOSYLATED HEMOGLOBIN TEST CPT-4: 03182 012 IMMUNIZATION ADMIN CPT-4: 64677 02/05/2012 FLUZONE, 5ML (Medicare) CPT-4: Q2038 08/10/2011 ADMIN INFLUENZA VIRUS VAC CPT-4: G0008 08/10/2011 ROUTINE VENIPUNCTURE CPT-4: 47137 07/26/2011 ASSAY OF FREE THYROXINE CPT-4: 50246 07/26/2011 ASSAY THYROID STIM HORMONE CPT-4: 44064 07/26/2011 COMPREHEN METABOLIC PANEL CPT-4: 00171 07/26/2011 COMPLETE CBC W/AUTO DIFF WBC CPT-4: 75828 07/26/2011 LIPID PANEL CPT-4: 70928 07/26/2011 A1C GLYCOSYLATED HEMOGLOBIN TEST CPT-4: 67574 011 ASSAY OF PSA TOTAL CPT-4: 70376 07/26/2011 ROUTINE VENIPUNCTURE CPT-4: 54770 01/19/2011 ASSAY OF NATRIURETIC PEPTIDE CPT-4: 59314 01/19/2011 THER/PROPH/DIAG INJ SC/IM CPT-4: 50551 01/19/2011 CEFTRIAXONE SODIUM INJECTION CPT-4: J0696 01/19/2011 METHYLPREDNISOLONE INJECTION CPT-4: J2930 01/19/2011 THER/PROPH/DIAG INJ SC/IM CPT-4: 74223 01/19/2011 THER/PROPH/DIAG INJ SC/IM CPT-4: 44523 01/18/2011 CEFTRIAXONE SODIUM INJECTION CPT-4: J0696 01/18/2011 METHYLPREDNISOLONE INJECTION CPT-4: J2930 01/18/2011 THER/PROPH/DIAG INJ SC/IM CPT-4: 55945 01/18/2011 THER/PROPH/DIAG INJ SC/IM CPT-4: 80301 12/21/2010 TESTOSTERONE CYPIONAT 100 MG CPT-4: J1070 12/21/2010 ROUTINE VENIPUNCTURE CPT-4: 16325 12/19/2010 TESTOSTERONE TOTAL - MALE CPT-4: 27132 12/19/2010 ROUTINE VENIPUNCTURE CPT-4: 08029 12/07/2010 COMPLETE CBC W/AUTO DIFF WBC CPT-4: 25049 12/07/2010 COMPREHEN METABOLIC PANEL CPT-4: 61455 12/07/2010 LIPID PANEL CPT-4: 87974 12/07/2010 A1C GLYCOSYLATED HEMOGLOBIN TEST CPT-4: 02962 011 ASSAY OF PSA TOTAL CPT-4: 01379 12/07/2010 ROUTINE VENIPUNCTURE CPT-4: 25048 04/05/2010 PRESCRIP TRANSMIT VIA ERX SY CPT-4: G8553 04/05/2010 ROUTINE VENIPUNCTURE CPT-4: 89981 01/13/2010 METHYLPREDNISOLONE INJECTION CPT-4: J2930 12/22/2009 THER/PROPH/DIAG INJ SC/IM CPT-4: 33469 12/22/2009 THER/PROPH/DIAG INJ SC/IM CPT-4: 43593 12/22/2009 CEFTRIAXONE SODIUM INJECTION CPT-4: J0696 12/22/2009 ROUTINE VENIPUNCTURE CPT-4: 38546 12/22/2009 COMPLETE CBC W/AUTO DIFF WBC CPT-4: 30245 12/22/2009 RBC SED RATE, AUTOMATED CPT-4: 37067 12/22/2009 RPR FE/E/EN/L/M 20.1-30.0 CM CPT-4: 02019 12/22/2009 EKG FOR INITIAL PREVENT EXAM CPT-4: G0403 12/22/2009 THER/PROPH/DIAG INJ SC/IM CPT-4: 09591 12/16/2009 KETOROLAC TROMETHAMINE INJ CPT-4: J1885 12/16/2009 [...] 1: 126/68 Code: 8480-6 BMI: 30.2 Code: 21415-9 Heart Rate 1: 92 bpm Height: 6' Respiratory Rate: 22 bpm SpO2: 94% Tempera ture: 36.9 (C) / 98.5 (F) Weight: 223 lbs 08/21/2018 Blood Pressure 1: 160/70 Code: 8480-6 Heart Rate 1: 79 bpm Respiratory Rate: 20 bpm SpO2: 94% Temperature: 36.7 (C) / 98.0 (F) We ight: 226 lbs 8 oz 08/07/2018 Blood Pressure 1: 138/70 Code: 8480-6 BMI: 30.1 Code: 42743-9 Heart Rate 1: 80 bpm Height: 6' Respiratory Rate: 20 bpm SpO2: 94% Tempera ture: 36.9 (C) / 98.5 (F) Weight: 222 lbs 05/23/2018 Blood Pressure 1: 148/66 Code: 8480-6 BMI: 30.0 Code: 06419-6 Heart Rate 1: 96 bpm Height: 6' Respiratory Rate: 22 bpm SpO2: 94% Tempera ture: 37.3 (C) / 99.1 (F) Weight: 221 lbs 05/02/2018 Blood Pressure 1: 146/78 Code: 8480-6 BMI: 29.6 Code: 79591-5 Heart Rate 1: 78 bpm Height: 6' Respiratory Rate: 26 bpm SpO2: 94% Tempera ture: 35.7 (C) / 96.2 (F) Weight: 218 lbs 04/29/2018 Blood Pressure 1: 142/62 Code: 8480-6 BMI: 28.6 Code: 03804-0 Heart Rate 1: 82 bpm Height: 6' Respiratory Rate: 22 bpm SpO2: 98% Tempera ture: 36.4 (C) / 97.6 (F) Weight: 211 lbs 04/22/2018 Blood Pressure 1: 126/64 Code: 8480-6 BMI: 30.0 Code: 15665-7 Heart Rate 1: 96 bpm Height: 6' [...] 1: 144/78 Code: 8480-6 BMI: 30.7 Code: 13467-2 Heart Rate 1: 92 bpm Height: 6' Respiratory Rate: 28 bpm SpO2: 94% Tempera ture: 36.9 (C) / 98.4 (F) Weight: 226 lbs 12/28/2017 Blood Pressure 1: 136/80 Code: 8480-6 Heart Rate 1: 92 bpm Respiratory Rate: 28 bpm SpO2: 94% Temperature: 36.7 (C) / 98.1 (F) 12/21/2017 Blood Pressure 1: 146/84 Code: 8480-6 BMI: 31.1 Code: 19338-2 Heart Rate 1: 84 bpm Height: 6' [...] 1: 142/64 Code: 8480-6 BMI: 31.3 Code: 45142-7 Heart Rate 1: 98 bpm Height: 6' Respiratory Rate: 24 bpm SpO2: 94% Tempera ture: 36.4 (C) / 97.6 (F) Weight: 231 lbs 10/17/2017 Blood Pressure 1: 140/68 Code: 8480-6 BMI: 31.7 Code: 42179-6 Heart Rate 1: 88 bpm Height: 6' Respiratory Rate: 20 bpm SpO2: 94% Tempera ture: 36.8 (C) / 98.3 (F) Weight: 234 lbs 08/02/2017 Blood Pressure 1: 142/80 Code: 8480-6 BMI: 31.1 Code: 72506-6 Heart Rate 1: 86 bpm Height: 6' Respiratory Rate: 20 bpm SpO2: 90% Tempera ture: 35.9 (C) / 96.7 (F) Weight: 229 lbs 07/02/2017 Blood Pressure 1: 146/64 Code: 8480-6 BMI: 29.6 Code: 64095-9 Heart Rate 1: 96 bpm Height: 6' Respiratory Rate: 20 bpm Temperature: 36 .4 (C) / 97.6 (F) Weight: 218 lbs 05/29/2017 Blood Pressure 1: 152/68 Code: 8480-6 BMI: 31.5 Code: 38158-5 Heart Rate 1: 100 bpm Height: 6' Respiratory Rate: 20 bpm SpO2: 92% Tempera ture: 36.9 (C) / 98.4 (F) Weight: 232 lbs 02/01/2017 Blood Pressure 1: 146/64 Code: 8480-6 BMI: 30.7 Code: 19593-6 Heart Rate 1: 76 bpm Height: 6' Respiratory Rate: 20 bpm SpO2: 95% Tempera ture: 36.8 (C) / 98.2 (F) Weight: 226 lbs 01/29/2017 Blood Pressure 1: 146/78 Code: 8480-6 Heart Rate 1: 84 bpm Respiratory Rate: 20 bpm SpO2: 96% Temperature: 36.1 (C) / 97.0 (F) We ight: 226 lbs 12/21/2016 Blood Pressure 1: 126/60 Code: 8480-6 BMI: 30.8 Code: 45686-2 Heart Rate 1: 88 bpm Height: 6' Respiratory Rate: 22 bpm SpO2: 94% Tempera ture: 36.7 (C) / 98.0 (F) Weight: 227 lbs 12/14/2016 Blood Pressure 1: 126/70 Code: 8480-6 BMI: 29.8 Code: 36726-8 Heart Rate 1: 92 bpm Height: 6' Respiratory Rate: 22 bpm SpO2: 93% Tempera ture: 36.8 (C) / 98.2 (F) Weight: 220 lbs 11/14/2016 Blood Pressure 1: 128/62 Code: 8480-6 Heart Rate 1: 100 bpm Respiratory Rate: 20 bpm SpO2: 96% Temperature: 36.6 (C) / 97.8 (F) We ight: 220 lbs 10/31/2016 Blood Pressure 1: 142/60 Code: 8480-6 BMI: 30.1 Code: 30953-6 Heart Rate 1: 112 bpm Height: 6' Respiratory Rate: 24 bpm SpO2: 93% Tempera ture: 37.1 (C) / 98.7 (F) Weight: 222 lbs 10/03/2016 Blood Pressure 1: 136/78 Code: 8480-6 Heart Rate 1: 106 bpm Respiratory Rate: 24 bpm SpO2: 93% Temperature: 36.6 (C) / 97.8 (F) We ight: 221 lbs 09/04/2016 Blood Pressure 1: 112/44 Code: 8480-6 BMI: 30.1 Code: 98054-9 Heart Rate 1: 90 bpm Height: 6' Respiratory Rate: 20 bpm SpO2: 93% Tempera ture: 36.6 (C) / 97.9 (F) Weight: 222 lbs 08/22/2016 Blood Pressure 1: 142/68 Code: 8480-6 BMI: 30.4 Code: 32281-7 Heart Rate 1: 100 bpm Height: 6' Respiratory Rate: 24 bpm SpO2: 93% Tempera ture: 36.7 (C) / 98.1 (F) Weight: 224 lbs 08/10/2016 Blood Pressure 1: 134/60 Code: 8480-6 BMI: 30.2 Code: 88047-5 Heart Rate 1: 76 bpm Height: 6' [...] 1: 122/72 Code: 8480-6 BMI: 30.7 Code: 88665-9 Heart Rate 1: 96 bpm Height: 6' Respiratory Rate: 22 bpm SpO2: 96% Tempera ture: 35.9 (C) / 96.7 (F) Weight: 226 lbs 04/03/2016 Blood Pressure 1: 146/64 Code: 8480-6 BMI: 30.8 Code: 09130-0 Heart Rate 1: 76 bpm Height: 6' Respiratory Rate: 20 bpm Temperature: 36 .8 (C) / 98.2 (F) Weight: 227 lbs 03/02/2016 Blood Pressure 1: 148/60 Code: 8480-6 BMI: 31.1 Code: 27563-2 Heart Rate 1: 80 bpm Height: 6' Respiratory Rate: 22 bpm SpO2: 94% Tempera ture: 36.6 (C) / 97.8 (F) Weight: 229 lbs 02/17/2016 Blood Pressure 1: 132/60 Code: 8480-6 BMI: 31.3 Code: 32277-8 Heart Rate 1: 80 bpm Height: 6' Respiratory Rate: 20 bpm Temperature: 36 .9 (C) / 98.4 (F) Weight: 231 lbs 02/14/2016 Blood Pressure 1: 126/70 Code: 8480-6 BMI: 31.3 Code: 12461-2 Heart Rate 1: 80 bpm Height: 6' Respiratory Rate: 24 bpm SpO2: 95% Tempera ture: 36.9 (C) / 98.5 (F) Weight: 231 lbs 01/31/2016 Blood Pressure 1: 136/60 Code: 8480-6 Heart Rate 1: 76 bpm Respiratory Rate: 22 bpm Temperature: 37.0 (C) / 98.6 (F) Weight: 230 lbs 12/30/2015 Blood Pressure 1: 128/58 Code: 8480-6 BMI: 31.2 Code: 21387-0 Heart Rate 1: 80 bpm Height: 6' Respiratory Rate: 20 bpm Temperature: 36 .8 (C) / 98.2 (F) Weight: 230 lbs 12/16/2015 Blood Pressure 1: 122/60 Code: 8480-6 BMI: 32.0 Code: 26642-4 Heart Rate 1: 84 bpm Height: 6' Respiratory Rate: 24 bpm Temperature: 37 .1 (C) / 98.7 (F) Weight: 236 lbs 12/06/2015 Blood Pressure 1: 162/74 Code: 8480-6 BMI: 32.5 Code: 33139-5 Heart Rate 1: 90 bpm Height: 6' Respiratory Rate: 20 bpm SpO2: 96% Tempera ture: 36.4 (C) / 97.6 (F) Weight: 240 lbs 11/15/2015 Blood Pressure 1: 166/80 Code: 8480-6 BMI: 32.4 Code: 24418-7 Heart Rate 1: 92 bpm Height: 6' Respiratory Rate: 28 bpm Temperature: 36 .5 (C) / 97.7 (F) Weight: 239 lbs 10/05/2015 Blood Pressure 1: 146/76 Code: 8480-6 BMI: 32.4 Code: 39489-2 Heart Rate 1: 88 bpm Height: 6' Respiratory Rate: 28 bpm Temperature: 37 .1 (C) / 98.7 (F) Weight: 239 lbs 07/22/2015 Blood Pressure 1: 144/68 Code: 8480-6 BMI: 31.9 Code: 73580-9 Heart Rate 1: 88 bpm Height: 6' [...] 1: 142/64 Code: 8480-6 BMI: 32.1 Code: 91846-3 Heart Rate 1: 80 bpm Height: 6' Respiratory Rate: 18 bpm Temperature: 36 .4 (C) / 97.6 (F) Weight: 237 lbs 06/07/2015 Blood Pressure 1: 164/58 Code: 8480-6 BMI: 32.1 Code: 74572-4 Heart Rate 1: 88 bpm Height: 6' Respiratory Rate: 20 bpm Temperature: 36 .6 (C) / 97.9 (F) Weight: 237 lbs 06/03/2015 Blood Pressure 1: 152/64 Code: 8480-6 BMI: 32.1 Code: 08526-8 Heart Rate 1: 96 bpm Height: 6' Respiratory Rate: 20 bpm Temperature: 37 .4 (C) / 99.3 (F) Weight: 237 lbs 06/01/2015 Blood Pressure 1: 136/70 Code: 8480-6 BMI: 31.7 Code: 72374-5 Heart Rate 1: 72 bpm Height: 6' Respiratory Rate: 22 bpm SpO2: 94% Tempera ture: 36.6 (C) / 97.9 (F) Weight: 234 lbs 02/25/2015 Blood Pressure 1: 146/80 Code: 8480-6 BMI: 32.4 Code: 98998-7 Heart Rate 1: 84 bpm Height: 6' Respiratory Rate: 28 bpm Temperature: 36 .7 (C) / 98.0 (F) Weight: 239 lbs 10/27/2014 Blood Pressure 1: 168/70 Code: 8480-6 BMI: 32.0 Code: 97858-4 Heart Rate 1: 80 bpm Height: 6' Respiratory Rate: 30 bpm SpO2: 98% Tempera ture: 36.4 (C) / 97.6 (F) Weight: 236 lbs 10/21/2014 Blood Pressure 1: 152/58 Code: 8480-6 BMI: 32.1 Code: 40043-0 Heart Rate 1: 78 bpm Height: 6' Respiratory Rate: 20 bpm Temperature: 37 .8 (C) / 100.1 (F) Weight: 237 lbs 10/06/2014 Blood Pressure 1: 132/64 Code: 8480-6 BMI: 32.5 Code: 88519-4 Heart Rate 1: 88 bpm Height: 6' Respiratory Rate: 32 bpm SpO2: 94% Tempera ture: 36.8 (C) / 98.2 (F) Weight: 240 lbs 09/21/2014 Blood Pressure 1: 134/68 Code: 8480-6 BMI: 32.4 Code: 82586-3 Heart Rate 1: 96 bpm Height: 6' Respiratory Rate: 30 bpm Temperature: 36 .7 (C) / 98.1 (F) Weight: 239 lbs 09/08/2014 Blood Pressure 1: 128/74 Code: 8480-6 BMI: 32.4 Code: 80628-8 Heart Rate 1: 82 bpm Height: 6' Respiratory Rate: 28 bpm SpO2: 93% Tempera ture: 36.6 (C) / 97.8 (F) Weight: 239 lbs 09/02/2014 Blood Pressure 1: 164/78 Code: 8480-6 Heart Rate 1: 86 bpm Respiratory Rate: 22 bpm SpO2: 96% Temperature: 36.1 (C) / 97.0 (F) We ight: 239 lbs 08/10/2014 Blood Pressure 1: 152/60 Code: 8480-6 BMI: 32.8 Code: 59222-7 Heart Rate 1: 80 bpm Height: 6' [...] 1: 146/80 Code: 8480-6 BMI: 33.9 Code: 76295-1 Heart Rate 1: 80 bpm Height: 6' [...] 1: 148/78 Code: 8480-6 BMI: 30.5 Code: 02419-1 Heart Rate 1: 84 bpm Height: 6' Respiratory Rate: 28 bpm SpO2: 97% Tempera ture: 36.4 (C) / 97.5 (F) Weight: 225 lbs 08/06/2013 Blood Pressure 1: 158/70 Code: 8480-6 Heart Rate 1: 110 bpm Respiratory Rate: 22 bpm SpO2: 88% Temperature: 39.7 (C) / 103.4 (F) W eight: 07/16/2013 Blood Pressure 1: 148/82 Code: 8480-6 BMI: 31.9 Code: 99084-6 Heart Rate 1: 80 bpm Height: 6' Respiratory Rate: 20 bpm Temperature: 36 .6 (C) / 97.9 (F) Weight: 235 lbs 04/09/2013 Blood Pressure 1: 142/78 Code: 8480-6 BMI: 31.5 Code: 27530-4 Heart Rate 1: 88 bpm Height: 6' Respiratory Rate: 32 bpm SpO2: 95% Tempera ture: 37.0 (C) / 98.6 (F) Weight: 232 lbs 02/11/2013 Blood Pressure 1: 146/70 Code: 8480-6 Heart Rate 1: 88 bpm Respiratory Rate: 20 bpm Temperature: 36.8 (C) / 98.3 (F) Weight: 230 lbs 01/31/2013 Blood Pressure 1: 128/70 Code: 8480-6 BMI: 31.6 Code: 09653-2 Heart Rate 1: 84 bpm Height: 6' Respiratory Rate: 24 bpm SpO2: 92% Tempera ture: 36.7 (C) / 98.0 (F) Weight: 233 lbs 01/20/2013 Blood Pressure 1: 148/64 Code: 8480-6 BMI: 31.6 Code: 00937-8 Heart Rate 1: 68 bpm Height: 6' Temperature: 36.1 (C) / 97.0 (F) Weight: 233 lbs 12/19/2012 Blood Pressure 1: 128/68 Code: 8480-6 BMI: 32.0 Code: 38548-8 Heart Rate 1: 64 bpm Height: 6' Temperature: 36.7 (C) / 98.0 (F) Weight: 236 lbs 10/21/2012 Blood Pressure 1: 142/64 Code: 8480-6 BMI: 30.9 Code: 34280-2 Heart Rate 1: 74 bpm Height: 6' Temperature: 36.2 (C) / 97.1 (F) Weight: 228 lbs 09/18/2012 Blood Pressure 1: 126/60 Code: 8480-6 BMI: 31.3 Code: 29957-0 Heart Rate 1: 88 bpm Height: 6' Respiratory Rate: 20 bpm Temperature: 36 .5 (C) / 97.7 (F) Weight: 231 lbs 08/28/2012 Blood Pressure 1: 132/68 Code: 8480-6 BMI: 31.5 Code: 41811-6 Heart Rate 1: 92 bpm Height: 6' Respiratory Rate: 30 bpm SpO2: 94% Tempera ture: 37.1 (C) / 98.7 (F) Weight: 232 lbs 07/10/2012 Blood Pressure 1: 118/70 Code: 8480-6 BMI: 30.5 Code: 17805-3 Heart Rate 1: 72 bpm Height: 6' Respiratory Rate: 24 bpm SpO2: 96% Tempera ture: 36.7 (C) / 98.0 (F) Weight: 225 lbs 05/09/2012 Blood Pressure 1: 124/68 Code: 8480-6 BMI: 29.8 Code: 81203-7 Heart Rate 1: 72 bpm Height: 6' Respiratory Rate: 20 bpm Temperature: 36 .8 (C) / 98.2 (F) Weight: 220 lbs 10/02/2011 Blood Pressure 1: 140/82 Code: 8480-6 BMI: 30.7 Code: 94902-1 Heart Rate 1: 68 bpm Height: 6' Temperature: 36.7 (C) / 98.0 (F) Weight: 226 lbs 08/07/2011 Blood Pressure 1: 122/68 Code: 8480-6 BMI: 30.5 Code: 25627-8 Heart Rate 1: 72 bpm Height: 6' [...] 1: 140/78 Code: 8480-6 BMI: 31.9 Code: 98744-4 Heart Rate 1: 84 bpm Height: 6' Temperature: 36.6 (C) / 97.8 (F) Weight: 235 lbs 12/22/2009 Blood Pressure 1: 140/74 Code: 8480-6 BMI: 31.9 Code: 20588-8 Heart Rate 1: 94 bpm Height: 6' SpO2: 92% Temperature: 35.7 (C) / 96.2 (F) Weight: 235 lbs 12/13/2009 Blood Pressure 1: 146/80 Code: 8480-6 BMI: 33.0 Code: 29713-5 Heart Rate 1: 86 bpm Height: 6' [...] of prednisone left follow up 03/10/2019 ER [facility]---patient cu rrently taking zithromax, prednisone and breathing treatments every two hours spasms/spasticity 02/26/2019 follow up 02/13/2019 follow up 01/14/2019 [facility] follow up 12/25/2018 cough 12/09/2018 here for [...] up 07/02/2017 Patient recently ariel campos on dor, but never picked up. He was also given prednisone/Zpack on 06/16/17 from walk in clinic. Patient is also in consult with Dr Benjamin. patient dc'd from hospital last week and reports that he is still taking the antibiotic that was prescribed to him (augmentin) and finished out the prednisone. 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 follow up 05/29/2017 Discuss Low [...] nightly. Patient has just been discharged from [place] with Pneumonia. Currently on Levaquin once daily. [...] would like evaluated follow up 06/13/2016 Hospital [facility] COPD w/exac 06/01/2016 Patient states chest tightness, shortness of breath, and fatigue have worsened in the last 2-3 weeks with exertion. otalgia 04/26/2016 cerumen 04/05/2016 Patient has been maximiliano ing ear drops follow up 04/03/2016 2mo fwup follow up 03/13/2016 Patient here for [facility] on medication education for insulin use lab [...] 02/25/2015 3mo fwup follow up 10/27/2014 Hospital [facility] cough 10/21/2014 follow up 10/06/2014 follow up 09/21/2014 [facility] follow up 09/08/2014 [facility] cough 09/02/2014 well man exam (65+ years) 08/10/2014 lab draw 08/05/2014 flu shot follow up 05/05/2014 6wk fwup follow up 03/24/2014 2wk fw shortness of breath 03/10/2014 shoulder pain 12/16/2013 Request back brace w hen working/lifting---chiropractor had recommended he get one to wear shortness of breath 10/09/2013 cough 09/18/2013 follow up 08/13/2013 Hospital [facility] cough 08/06/2013 follow up 07/16/2013 lab [...] 12/13/2009 Encounters Encounter Performer Location Codes Date ([id number]) OFFICE/OUTPATIENT VISIT EST Diagnosis: Chronic respiratory failure with hypercapnia[ICD10: J96.12] Diagnosis: Chronic airway obstruction, not elsewhere classified[ICD10: J44.9] Diagnosis: Basal cell carcinoma, face[ICD10: C44.310] Lita BAARKAT [facility] CPT-4: 73539 11/12/2019 ([id number]) OFFICE/OUTPATIENT VISIT EST Diagnosis: Chronic obstructive pulmonary disease, unspecified[ICD10: J44.9] Diagnosis: Right thyroid nodule[ICD10: E04.1] [facility]ita [facility] CPT-4: 71409 09/11/2019 ([id number]) OFFICE/OUTPATIENT VISIT EST Diagnosis: Chronic bronchitis[ICD10: J42] 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] Diagnosis: FLU VACCINE[ICD10: Z23] Lita Ramirez [employer]ELVA [facility] CPT-4: 98772 08/07/2019 ([id number]) OFFICE/OUTPATIENT VISIT EST Diagnosis: Chronic obstructive pulmonary disease with (acute) exacerbation[ICD10: J44.1] Autumnmaria luisa [facility] CPT- 4: 38260 07/14/2019 ([id number]) OFFICE/OUTPATIENT VISIT EST Diagnosis: Primary insomnia[ICD10: F51.01] Diagnosis: Dyspepsia and other specified disorders of function of stomach[ICD10: K31.89] Lita BARAKAT DO [facility] CPT-4: 60238 07/01/2019 ([id number]) OFFICE/OUTPATIENT VISIT EST Diagnosis: Epigastric pain[ICD10: R10.13] Diagnosis: Nausea[ICD10: R11.0] Diagnosis: Weight loss[ICD10: R63.4] Lita AREVALO DO [facility] CPT-4: 36612 06/24/2019 ([id number]) OFFICE/OUTPATIENT VISIT EST Diagnosis: Chronic obstructive pulmonary disease, unspecified[ICD10: J44.9] Diagnosis: Chronic insomnia[ICD10: F51.04] Diagnosis: Anemia[ICD10: D64.9] Diagnosis: Diplopia[ICD10: H53.2] Diagnosis: [place][ICD10: F30.9] Lita BARAKAT DO [facility] CPT-4: 80293 06/17/2019 ([id number]) NURSE/OUTPATIENT VISIT EST Diagnosis: Vitamin B12 deficiency anemia, unspecified[ICD10: D51.9] Lita BARAKAT DO [facility] CPT-4: 25045 06/10/2019 ([id number]) NURSE/OUTPATIENT VISIT EST Diagnosis: Vitamin B12 deficiency anemia, unspecified[ICD10: D51.9] Lita BARAKAT DO [facility] CPT-4: 35446 06/02/2019 ([id number]) NURSE/OUTPATIENT VISIT EST Diagnosis: Vitamin B12 deficiency anemia, unspecified[ICD10: D51.9] Lita BARAKAT DO [facility] CPT-4: 91657 05/27/2019 ([id number]) NURSE/OUTPATIENT VISIT EST Diagnosis: Vitamin B12 deficiency anemia, unspecified[ICD10: D51.9] Lita BARAKAT DO [facility] CPT-4: 50295 05/12/2019 ([id number]) OFFICE/OUTPATIENT VISIT EST Diagnosis: Restless legs syndrome[ICD10: G25.81] Diagnosis: Primary insomnia[ICD10: F51.01] Diagnosis: Anemia, unspecified[ICD10: D64.9] Diagnosis: Type 2 diabetes mellitus with hyperglycemia[ICD10: E11.65] Diagnosis: Vitamin D deficiency, unspecified[ICD10: E55.9] Lita BARAKAT DO [facility] CPT-4: 73179 05/08/2019 ([id number]) OFFICE/OUTPATIENT VISIT EST Diagnosis: Pain in right knee[ICD10: M25.561] Diagnosis: Restless legs syndrome[ICD10: G25.81] Diagnosis: Insomnia, unspecified[ICD10: G47.00] Lita BARAKAT [facility] CPT-4: 88183 04/07/2019 ([id number]) NO CHARGE Diagnosis: Chronic obstructive pulmonary disease with (acute) exacerbation[ICD10: J44.1] Diagnosis: Dizziness and giddiness[ICD10: R42] Diagnosis: Generalized anxiety disorder[ICD10: F41.1] Autumn BARAKAT [facility] CPT-4: 86923 03/24/2019 ([id number]) OFFICE/OUTPATIENT VISIT EST Diagnosis: Chronic obstructive pulmonary disease with (acute) exacerbation[ICD10: J44.1] Diagnosis: Dizziness and giddiness[ICD10: R42] Autumn CONDE SFerdinand BARAKAT [facility] CPT-4: 25546 03/21/2019 ([id number]) OFFICE/OUTPATIENT VISIT EST Diagnosis: Candidal stomatitis[ICD10: B37.0] Lita Jasminelvabrii RUSSEL Segura Ashley BARAKAT [facility] CPT-4: 69661 03/13/2019 ([id number]) OFFICE/OUTPATIENT VISIT EST Diagnosis: Chronic obstructive pulmonary disease with acute lower respiratory infection[ICD10: J44.0] Diagnosis: Restless legs syndrome[ICD10: G25.81] Lita PIEDRA MARC Ashley BARAKAT [facility] CPT-4: 14812 03/10/2019 ([id number]) OFFICE/OUTPATIENT VISIT EST Diagnosis: Restless legs syndrome[ICD10: G25.81] Lita TRAN Ashley BARAKAT [facility] CPT-4: 46511 02/26/2019 ([id number]) OFFICE/OUTPATIENT VISIT EST Diagnosis: Primary insomnia[ICD10: F51.01] Diagnosis: Chronic obstructive pulmonary disease, unspecified[ICD10: J44.9] Lita BARAKAT DO [facility] CPT-4: 59556 02/13/2019 ([id number]) OFFICE/OUTPATIENT VISIT EST Diagnosis: Chronic obstructive pulmonary disease, unspecified[ICD10: J44.9] Diagnosis: Chronic respiratory failure with hypoxia[ICD10: J96.11] Diagnosis: Chronic respiratory failure with hypercapnia[ICD10: J96.12] Lita BARAKAT [facility] CPT-4: 04510 01/14/2019 ([id number]) OFFICE/OUTPATIENT VISIT EST Diagnosis: Chronic respiratory failure with hypoxia[ICD10: J96.11] Diagnosis: Patient's noncompliance with other medical treatment and regimen[ICD10: Z91.19] Diagnosis: Chronic obstructive pulmonary disease with (acute) exacerbation[ICD10: J44.1] Lita ALYLINE Ashley BARAKAT [facility] CPT- 4: 17878 12/25/2018 ([id number]) OFFICE/OUTPATIENT VISIT EST Diagnosis: Essential (primary) hypertension[ICD10: I10] Diagnosis: Type 2 diabetes mellitus with hyperglycemia[ICD10: E11.65] Diagnosis: Hypothyroidism, unspecified[ICD10: E03.9] Diagnosis: Hyperlipidemia, unspecified[ICD10: E78.5] Diagnosis: Acute recurrent maxillary sinusitis[ICD10: J01.01] Ines Banerjee LITA Ashley BARAKAT [facility] CPT-4: 05726 12/09/2018 ([id number]) OFFICE/OUTPATIENT VISIT EST Diagnosis: Candidal stomatitis[ICD10: B37.0] Lita Jasminbetty Segura Ashley FUNEZ [facility] CPT-4: 85803 12/05/2018 ([id number]) OFFICE/OUTPATIENT VISIT EST Diagnosis: Acute recurrent sinusitis, unspecified[ICD10: J01.91] Diagnosis: Pain in right knee[ICD10: M25.561] Lita GONZALES Ashley BARAKAT [facility] CPT-4: 64200 10/23/2018 ([id number]) OFFICE/OUTPATIENT VISIT EST Diagnosis: Restless legs syndrome[ICD10: G25.81] Diagnosis: Basal cell carcinoma of skin of scalp and neck[ICD10: C44.41] Lita BARAKAT DO [facility] CPT-4: 90529 08/21/2018 ([id number]) OFFICE/OUTPATIENT VISIT EST Diagnosis: Chronic obstructive pulmonary disease with acute lower respiratory infection[ICD10: J44.0] Diagnosis: Restless legs syndrome[ICD10: G25.81] Lita BARAKAT DO [facility] CPT-4: 14271 08/07/2018 ([id number]) OFFICE/OUTPATIENT VISIT EST Diagnosis: Chronic obstructive pulmonary disease with acute lower respiratory infection[ICD10: J44.0] Lita BARAKAT DO [facility] CPT-4: 73418 05/23/2018 ([id number]) OFFICE/OUTPATIENT VISIT EST Diagnosis: Candidal stomatitis[ICD10: B37.0] Lita BARAKAT DO [facility] CPT-4: 83315 05/02/2018 ([id number]) OFFICE/OUTPATIENT VISIT EST Diagnosis: Candidal stomatitis[ICD10: B37.0] Diagnosis: Other retention of urine[ICD10: R33.8] Diagnosis: Chronic obstructive pulmonary disease with acute lower respiratory infection[ICD10: J44.0] Autumn BARAKAT DO [facility] CPT-4: 27611 04/29/2018 ([id number]) OFFICE/OUTPATIENT VISIT EST Diagnosis: Chronic obstructive pulmonary disease with acute lower respiratory infection[ICD10: J44.0] Lita BARAKAT DO [facility] CPT-4: 73273 04/22/2018 ([id number]) OFFICE/OUTPATIENT VISIT EST Diagnosis: Unilateral primary osteoarthritis, right knee[ICD10: M17.11] Diagnosis: Squamous cell carcinoma of skin, unspecified[ICD10: C44.92] Lita BARAKAT DO [facility] CPT-4: 46010 01/28/2018 ([id number]) OFFICE/OUTPATIENT VISIT EST Diagnosis: Pain in right knee[ICD10: M25.561] Diagnosis: 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] Lita BARAKAT DO [facility] CPT-4: 41733 01/23/2018 ([id number]) OFFICE/OUTPATIENT VISIT EST Diagnosis: Urinary tract infection, site not specified[ICD10: N39.0] Diagnosis: Chronic obstructive pulmonary disease with acute lower respiratory infection[ICD10: J44.0] Lita BARAKAT DO [facility] CPT-4: 38073 01/02/2018 ([id number]) OFFICE/OUTPATIENT VISIT EST Diagnosis: Chronic obstructive pulmonary disease with (acute) exacerbation[ICD10: J44.1] Autumn BARAKAT DO [facility] CPT- 4: 44429 12/28/2017 ([id number]) OFFICE/OUTPATIENT VISIT EST Diagnosis: Acute bronchitis, unspecified[ICD10: J20.9] Autumn BARAKAT DO [facility] CPT-4: 96863 12/21/2017 ([id number]) OFFICE/OUTPATIENT VISIT EST Diagnosis: Chronic obstructive pulmonary disease with acute lower respiratory infection[ICD10: J44.0] Diagnosis: Pain in right knee[ICD10: M25.561] Autumn BARAKAT DO [facility] CPT-4: 03465 12/17/2017 ([id number]) OFFICE/OUTPATIENT VISIT EST Diagnosis: Laceration without foreign body of right hand, sequela[ICD10: S61.411S] Diagnosis: Restless legs syndrome[ICD10: G25.81] Lita BARAKAT [facility] CPT-4: 58980 10/17/2017 OFFICE/OUTPATIENT VISIT EST Diagnosis: Chronic obstructive pulmonary disease with acute lower respiratory infection[ICD10: J44.0] Autumn BARAKAT DO [facility] CPT-4: 11395 08/02/2017 ([id number]) OFFICE/OUTPATIENT VISIT EST Diagnosis: PNEUMOCOCCAL VACCINE[ICD10: Z23] Lita BARAKAT DO [facility] CPT-4: 38009 07/24/2017 OFFICE/OUTPATIENT VISIT EST Diagnosis: Chronic obstructive pulmonary disease with (acute) exacerbation[ICD10: J44.1] Autumn ALYLINE Ashley BARAKAT [facility] CPT- 4: 45576 07/02/2017 OFFICE/OUTPATIENT VISIT EST Diagnosis: Low back pain[ICD10: M54.5] Ruchi HectorAnkur CRAWFORD Ashley De Los Santos BRANDIN [facility] CPT-4: 06463 05/29/2017 ([id number]) OFFICE/OUTPATIENT VISIT EST Diagnosis: Essential (primary) hypertension[ICD10: I10] Diagnosis: Hypothyroidism, unspecified[ICD10: E03.9] Diagnosis: Dizziness and giddiness[ICD10: R42] Diagnosis: Other abnormality of red blood cells[ICD10: R71.8] Diagnosis: Contracture of muscle, unspecified site[ICD10: M62.40] Lita Gasper ALYLINE Ashley BARAKAT [facility] CPT-4: 75497 04/17/2017 OFFICE/OUTPATIENT VISIT EST Diagnosis: Pain in left shoulder[ICD10: M25.512] Ruchi CurielJosé ALIZEONIEL MARC DonovanFerdinand GASPER [facility] CPT-4: 50976 01/29/2017 ([id number]) OFFICE/OUTPATIENT VISIT EST Diagnosis: Anemia, unspecified[ICD10: D64.9] Lita Jasminbetty Segura DonovanFerdinand GASPER [facility] CPT-4: 30337 12/27/2016 ([id number]) OFFICE/OUTPATIENT VISIT EST Diagnosis: Other fatigue[ICD10: R53.83] Diagnosis: Other iron deficiency anemias[ICD10: D50.8] Lita Jasminbetty CRAWFORD DonovanFerdinand GASPER [facility] CPT-4: 39512 12/21/2016 ([id number]) OFFICE/OUTPATIENT VISIT EST Diagnosis: Anemia, unspecified[ICD10: D64.9] Diagnosis: Other fatigue[ICD10: R53.83] Diagnosis: Restless legs syndrome[ICD10: G25.81] Lita TRAN DonovanFerdinand GASPER [facility] CPT-4: 31741 12/14/2016 ([id number]) OFFICE/OUTPATIENT VISIT EST Diagnosis: Anemia, unspecified[ICD10: D64.9] Diagnosis: Other abnormality of red blood cells[ICD10: R71.8] Lita ALYLINE Ashley BARAKAT [facility] CPT-4: 81401 12/12/2016 ([id number]) OFFICE/OUTPATIENT VISIT EST Diagnosis: Pneumonia, unspecified organism[ICD10: J18.9] Diagnosis: Restless legs syndrome[ICD10: G25.81] Magda Toth TADEO MARC Ashley BARAKAT [facility] CPT-4: 59904 11/14/2016 ([id number]) OFFICE/OUTPATIENT VISIT EST Diagnosis: Candidal stomatitis[ICD10: B37.0] Litaflor HERRMANNQUEOSCAR BARAKAT [facility] CPT-4: 44702 10/31/2016 ([id number]) OFFICE/OUTPATIENT VISIT EST Diagnosis: Acute upper respiratory infection, unspecified[ICD10: J06.9] Diagnosis: Personal history of pneumonia (recurrent)[ICD10: Z87.01] Mgada HERRMANNQUELINE Ashley [facility] CPT-[facility]: 90722 10/03/2016 ([id number]) OFFICE/OUTPATIENT VISIT EST Diagnosis: Restless legs syndrome[ICD10: G25.81] Diagnosis: Insomnia, unspecified[ICD10: G47.00] Magda Toth JERMAIN LOPEZ Ashley [facility] C[facility]: 46282 09/04/2016 ([id number]) OFFICE/OUTPATIENT VISIT EST Diagnosis: Restless legs syndrome[ICD10: G25.81] Diagnosis: Primary insomnia[ICD10: F51.01] Lita ALYLINE Ashley BARAKAT [facility] CPT-4: 95771 08/10/2016 OFFICE/OUTPATIENT VISIT EST Diagnosis: Toxic gastroenteritis and colitis[ICD10: K52.1] Diagnosis: Dizziness and giddiness[ICD10: R42] Diagnosis: Headache[ICD10: R51] Diagnosis: Restless legs syndrome[ICD10: G25.81] Lita Jasminelvabrii TADEO MARC Ashley BARAKAT [facility] CPT-4: 68578 07/06/2016 ([id number]) OFFICE/OUTPATIENT VISIT EST Diagnosis: Chest pain, unspecified[ICD10: R07.9] Diagnosis: Dyspnea, unspecified[ICD10: R06.00] Magdajohnny Toth ELLIS CONDE SFerdinand BARAKAT [employer] [facility] CPT-4: 08884 06/22/2016 ([id number]) OFFICE/OUTPATIENT VISIT EST 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] Diagnosis: PNEUMOCOCCAL VACCINE[ICD10: Z23] Diagnosis: FLU VACCINE[ICD10: Z23] Lita PABLO [facility] CPT-4: 54916 06/13/2016 ([id number]) OFFICE/OUTPATIENT VISIT EST Diagnosis: Chest pain, unspecified[ICD10: R07.9] Diagnosis: Other forms of dyspnea[ICD10: R06.09] Diagnosis: Shortness of breath[ICD10: R06.02] Diagnosis: Other fatigue[ICD10: R53.83] Magda [facility] C[facility]: 58995 06/01/2016 ([id number]) OFFICE/OUTPATIENT VISIT EST Diagnosis: Unspecified hearing loss, left ear[ICD10: H91.92] Diagnosis: Other specified disorders of Eustachian tube, left ear[ICD10: H69.82] Magda [facility] CPT[facility]: 27184 11/2015 ([id number]) OFFICE/OUTPATIENT VISIT EST Diagnosis: Impacted cerumen, bilateral[ICD10: H61.23] Diagnosis: DM W/O COMPLICATION TYPE I, 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: E10.9] Diagnosis: Generalized anxiety disorder[ICD10: F41.1] Lita [facility]: 28136 04/03/2016 ([id number]) OFFICE/OUTPATIENT VISIT EST Diagnosis: 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] Lita [facility] CPT - 4: 92781 03/13/2016 ([id number]) OFFICE/OUTPATIENT VISIT EST Diagnosis: Type 2 diabetes mellitus with hyperglycemia[ICD10: E11.65] Diagnosis: Hyperlipidemia, unspecified[ICD10: E78.5] Diagnosis: Essential (primary) hypertension[ICD10: I10] Diagnosis: Chronic obstructive pulmonary disease, unspecified[ICD10: J44.9] Diagnosis: Testicular hypofunction[ICD10: E29.1] Diagnosis: Male erectile dysfunction, unspecified[ICD10: N52.9] Diagnosis: Anemia, unspecified[ICD10: D64.9] Lita BARAKAT [employer] [facility] CPT-4: 88735 03/06/2016 ([id number]) OFFICE/OUTPATIENT VISIT EST Diagnosis: Type 2 diabetes mellitus with hyperglycemia[ICD10: E11.65] Diagnosis: Hyperlipidemia, unspecified[ICD10: E78.5] Diagnosis: Chronic obstructive pulmonary disease, unspecified[ICD10: J44.9] Diagnosis: Male erectile dysfunction, unspecified[ICD10: N52.9] Lita BARAKAT [facility] CPT-4: 67016 03/02/2016 ([id number]) OFFICE/OUTPATIENT VISIT EST Diagnosis: Pain in right foot[ICD10: M79.671] Magda Toth KEVIN JANET Ashley BARAKAT [facility] CPT-4: 21021 02/14/2016 OFFICE/OUTPATIENT VISIT EST Diagnosis: Generalized anxiety disorder[ICD10: F41.1] Lita BARAKAT [employer] [facility] CPT-4: 96202 01/31/2016 ([id number]) OFFICE/OUTPATIENT VISIT EST Diagnosis: Generalized anxiety disorder[ICD10: F41.1] Lita BARAKAT [facility] [employer] [facility] CPT-4: 39256 12/30/2015 ([id number]) OFFICE/OUTPATIENT VISIT EST Diagnosis: Localized swelling, mass and lump, neck[ICD10: R22.1] Lita BARAKAT [employer] [facility] CPT-4: 88305 12/16/2015 OFFICE/OUTPATIENT VISIT EST Diagnosis: Localized enlarged lymph nodes[ICD10: R59.0] Diagnosis: Otalgia, left ear[ICD10: H92.02] Stephanie EspinozaAshleyisabella BARAKAT [employer] [facility] CPT-4: 74763 12/06/2015 OFFICE/OUTPATIENT VISIT EST Diagnosis: Localized enlarged lymph nodes[ICD10: R59.0] Diagnosis: Squamous cell carcinoma of skin, unspecified[ICD10: C44.92] Diagnosis: Actinic keratosis[ICD10: L57.0] Stephanie Gabriel BARAKAT [facility] CPT-4: 77709 11/15/2015 OFFICE/OUTPATIENT VISIT EST Diagnosis: Cellulitis of left lower limb[ICD10: L03.116] Diagnosis: Encounter for examination and observation for other specified reasons[ICD10: Z04.8] Diagnosis: Chronic obstructive pulmonary disease, unspecified[ICD10: J44.9] Stephanie BARAKAT DO [facility] CPT-4: 56244 07/22/2015 OFFICE/OUTPATIENT VISIT EST Diagnosis: Other specified joint disorders, left knee[ICD10: M25.862] Diagnosis: Cellulitis of left lower limb[ICD10: L03.116] Diagnosis: Other fatigue[ICD10: R53.83] Diagnosis: Hyperlipidemia, unspecified[ICD10: E78.5] Stephanie BARAKAT DO [facility] CPT-4: 40543 07/01/2015 OFFICE/OUTPATIENT VISIT EST Diagnosis: Pain in left knee[ICD10: M25.562] Diagnosis: Cellulitis of left lower limb[ICD10: L03.116] Diagnosis: Other specified joint disorders, left knee[ICD10: M25.862] Stephanie BARAKAT DO [facility] CPT-4: 97837 06/28/2015 OFFICE/OUTPATIENT VISIT EST Diagnosis: PREPATELLAR BURSITIS[ICD9: 726.65] Diagnosis: Cellulitis of knee, left[ICD9: 682.6] Stephanie BARAKAT [facility] CPT-4: 11068 06/09/2015 ([id number]) OFFICE/OUTPATIENT VISIT EST Diagnosis: PREPATELLAR BURSITIS[ICD9: 726.65] Diagnosis: Cellulitis of knee, left[ICD9: 682.6] Lita BRAAKAT [facility] CPT-4: 93858 06/07/2015 OFFICE/OUTPATIENT VISIT EST Diagnosis: Cellulitis of knee, left[ICD9: 682.6] Stephanie BARAKAT DO [facility] CPT-4: 73292 06/03/2015 ([id number]) OFFICE/OUTPATIENT VISIT EST Diagnosis: DM W/O COMPLICATION TYPE II, UNCONTROLLED[ICD9: 250.02] Diagnosis: COPD[ICD9: 496] Lita BARAKAT [facility] CPT- 4: 62466 06/01/2015 ([id number]) OFFICE/OUTPATIENT VISIT EST Diagnosis: COPD[ICD9: 496] Diagnosis: DYSPNEA[ICD9: 786.09] Diagnosis: DM W/O COMPLICATION TYPE II, UNCONTROLLED[ICD9: 250.02] Diagnosis: Actinic keratosis[ICD9: 702.0] Lita BARAKAT [facility] CPT-4: 72576 02/25/2015 ([id number]) OFFICE/OUTPATIENT VISIT EST Diagnosis: ASTHMA NOS[ICD9: 493.90] Diagnosis: COPD[ICD9: 496] Diagnosis: DM W/O COMPLICATION TYPE II, UNCONTROLLED[ICD9: 250.02] Lita BARAKAT [facility] CPT-4: 07624 10/27/2014 OFFICE/OUTPATIENT VISIT EST Diagnosis: DYSPNEA[ICD9: 786.09] Diagnosis: COPD[ICD9: 496] iLta BARAKAT [facility] CPT- 4: 47222 10/06/2014 ([id number]) OFFICE/OUTPATIENT VISIT EST Diagnosis: PNEUMONIA, ORGANISM[ICD9: 486] Diagnosis: COPD[ICD9: 496] Diagnosis: DYSPNEA[ICD9: 786.09] Lita BARAKAT [facility] CPT-4: 88558 09/21/2014 OFFICE/OUTPATIENT VISIT EST Diagnosis: PNEUMONIA, ORGANISM[ICD9: 486] Diagnosis: DYSPNEA[ICD9: 786.09] Diagnosis: COUGH[ICD9: 786.2] Stephanie BARAKAT [facility] CPT-4: 29499 09/08/2014 OFFICE/OUTPATIENT VISIT EST Diagnosis: COPD with exacerbation[ICD9: 491.21] Diagnosis: COUGH[ICD9: 786.2] Diagnosis: DYSPNEA[ICD9: 786.09] Stephanie BARAKAT [facility] CPT-4: 94520 09/02/2014 ([id number]) OFFICE/OUTPATIENT VISIT EST Diagnosis: DM W/O COMPLICATION TYPE II, UNCONTROLLED[ICD9: 250.02] Lita [facility] CPT[facility]: 29131 08/27/2014 ([id number]) OFFICE/OUTPATIENT VISIT EST Diagnosis: DM W/O COMPLICATION TYPE II, UNCONTROLLED[ICD9: 250.02] Diagnosis: HYPERLIPIDEMIA NEC/NOS[ICD9: 272.4] Diagnosis: HYPERTENSION[ICD9: 401.9] Diagnosis: COPD[ICD9: 496] Diagnosis: FLU VACCINE[ICD10: Z23] Lita [facility] CPT-4: 67943 08/05/2014 ([id number]) OFFICE/OUTPATIENT VISIT EST Diagnosis: COPD[ICD9: 496] Diagnosis: Lumbar degenerative disc disease[ICD9: 722.52] Lita [facility] CPT[facility]: 55302 05/05/2014 OFFICE/OUTPATIENT VISIT EST Diagnosis: DYSPNEA[ICD9: 786.09] Diagnosis: COPD[ICD9: 496] Lita [facility] CPT- 4: 68876 03/24/2014 ([id number]) OFFICE/OUTPATIENT VISIT EST Diagnosis: COPD[ICD9: 496] Diagnosis: DYSPNEA[ICD9: 786.09] Lita [facility] CPT-[facility]: 78976 03/10/2014 OFFICE/OUTPATIENT VISIT EST Diagnosis: Subacromial bursitis[ICD9: 726.19] Diagnosis: Chronic low back pain[ICD9: 724.2] Diagnosis: Lumbar degenerative disc disease[ICD9: 722.52] Lita [facility] CPT[facility]: 50369 12/16/2013 ([id number]) OFFICE/OUTPATIENT VISIT EST Diagnosis: PHARYNGITIS, ACUTE[ICD9: 462] Diagnosis: COPD[ICD9: 496] Lita [facility] CPT- [facility]: 21899 10/09/2013 OFFICE/OUTPATIENT VISIT EST Diagnosis: COPD[ICD9: 496] Diagnosis: Acute exacerbation of chronic obstructive pulmonary disease (COPD)[ICD9: 491.21] Ruchi CRAWFORD DonovanFerdinand [facility] CPT-4: 44351 09/18/2013 ([id number]) OFFICE/OUTPATIENT VISIT EST Diagnosis: PNEUMONIA, ORGANISM[ICD9: 486] Diagnosis: DM W/O COMPLICATION TYPE II[ICD9: 250.00] Lita HERRMANNQUELINE DonovanFerdinand [facility] CPT-4: 01772 08/13/2013 ([id number]) OFFICE/OUTPATIENT VISIT EST Diagnosis: DM W/O COMPLICATION TYPE II, UNCONTROLLED[ICD9: 250.02] Diagnosis: HYPERLIPIDEMIA NEC/NOS[ICD9: 272.4] Diagnosis: HYPERTENSION[ICD9: 401.9] Diagnosis: DYSPNEA[ICD9: 786.09] Diagnosis: Family history of CABG[ICD9: V17.49] Lita LOPEZ DonovanFerdinand [facility] CPT-4: 79922 07/16/2013 ([id number]) OFFICE/OUTPATIENT VISIT EST Diagnosis: DM W/O COMPLICATION TYPE II, UNCONTROLLED[ICD9: 250.02] Diagnosis: HYPERLIPIDEMIA NEC/NOS[ICD9: 272.4] Diagnosis: HYPERTENSION[ICD9: 401.9] Lita HERRMANNQUELINE DonovanFerdinand [facility]: 32075 06/25/2013 OFFICE/OUTPATIENT VISIT EST Diagnosis: COUGH[ICD9: 786.2] Diagnosis: COPD[ICD9: 496] Kimberly HERRMANNQUELINE DonovanFerdinand [facility] CPT- 4: 79689 04/09/2013 ([id number]) OFFICE/OUTPATIENT VISIT EST Diagnosis: Muscle spasm[ICD9: 728.85] Diagnosis: ARTHRALGIA-MULTIPLE SITES[ICD9: 719.49] Lita HOLMAN DonovanFerdinand [facility] CPT-4: 44742 02/11/2013 OFFICE/OUTPATIENT VISIT EST Diagnosis: COPD with exacerbation[ICD9: 491.21] Diagnosis: BRONCHITIS, ACUTE[ICD9: 466.0] Ruchi CRAWFORD Donovan Ferdinand [facility] CPT-4: 12214 01/31/2013 OFFICE/OUTPATIENT VISIT EST Diagnosis: COUGH[ICD9: 786.2] Diagnosis: PHARYNGITIS, ACUTE[ICD9: 462] Diagnosis: SINUSITIS, ACUTE[ICD9: 461.9] Lita BARAKAT [facility] CPT-4: 46262 01/20/2013 OFFICE/OUTPATIENT VISIT EST Diagnosis: DIZZINESS/VERTIGO[ICD9: 780.4] Lita BARAKAT [facility] CPT-4: 94376 12/19/2012 OFFICE/OUTPATIENT VISIT EST Diagnosis: Skin lesion of left arm[ICD9: 709.9] Diagnosis: Otitis externa[ICD9: 380.10] Diagnosis: PHARYNGITIS, ACUTE[ICD9: 462] Lita BARAKAT [facility] CPT-4: 37256 10/21/2012 ([id number]) OFFICE/OUTPATIENT VISIT EST Diagnosis: DM W/O COMPLICATION TYPE II, UNCONTROLLED[ICD9: 250.02] Diagnosis: HYPERLIPIDEMIA NEC/NOS[ICD9: 272.4] Diagnosis: HYPERTENSION[ICD9: 401.9] Lita AREVALO [facility] CPT-4: 62782 09/19/2012 ([id number]) OFFICE/OUTPATIENT VISIT EST Diagnosis: DM W/O COMPLICATION TYPE II, UNCONTROLLED[ICD9: 250.02] Diagnosis: HYPERLIPIDEMIA NEC/NOS[ICD9: 272.4] Diagnosis: COPD[ICD9: 496] Lita BARAKAT [facility] CPT- 4: 11494 09/18/2012 ([id number]) OFFICE/OUTPATIENT VISIT EST Diagnosis: BRONCHITIS, ACUTE[ICD9: 466.0] Diagnosis: SINUSITIS, ACUTE[ICD9: 461.9] Lita BARAKAT [facility] CPT-4: 61648 08/28/2012 ([id number]) OFFICE/OUTPATIENT VISIT EST Diagnosis: COPD[ICD9: 496] Diagnosis: DYSPNEA[ICD9: 786.09] Diagnosis: VAC STREP PNEUMONIAE-FLU (Medicare)[ICD9: V06.6] Lita BARAKAT [facility] CPT-4: 04260 07/10/2012 ([id number]) OFFICE/OUTPATIENT VISIT EST Diagnosis: DM W/O COMPLICATION TYPE II, UNCONTROLLED[ICD9: 250.02] Diagnosis: HYPERTENSION[ICD9: 401.9] Diagnosis: HYPERLIPIDEMIA NEC/NOS[ICD9: 272.4] Diagnosis: DIZZINESS/VERTIGO[ICD9: 780.4] Lita CASTELLANOSNDER [facility] CPT-4: 84813 05/09/2012 ([id number]) OFFICE/OUTPATIENT VISIT EST Diagnosis: DM W/O COMPLICATION TYPE II, UNCONTROLLED[ICD9: 250.02] Diagnosis: HYPERLIPIDEMIA NEC/NOS[ICD9: 272.4] Diagnosis: HYPERTENSION[ICD9: 401.9] Diagnosis: MALAISE AND FATIGUE[ICD9: 780.79] Lita Jasminelvabrii [facility] CPT-4: 75356 05/06/2012 OFFICE/OUTPATIENT VISIT EST Diagnosis: COUGH[ICD9: 786.2] Diagnosis: SINUSITIS, ACUTE[ICD9: 461.9] Diagnosis: PHARYNGITIS, ACUTE[ICD9: 462] Lita BARAKAT DO [facility] CPT-4: 44897 10/02/2011 OFFICE/OUTPATIENT VISIT EST Diagnosis: DM W/O COMPLICATION TYPE II, UNCONTROLLED[ICD9: 250.02] Diagnosis: HYPERLIPIDEMIA NEC/NOS[ICD9: 272.4] Diagnosis: HYPERTENSION[ICD9: 401.9] Diagnosis: COPD[ICD9: 496] Lita Jasminbetty LITA SFerdinand [facility] CPT- 4: 11459 08/07/2011 OFFICE/OUTPATIENT VISIT EST Lita Jasminbetty CRAWFORD Donovan. JASMIN NDER [facility] CPT- 4: 77321 04/03/2011 ([id number]) OFFICE/OUTPATIENT VISIT EST Lita TOBAR SUZANNE SFerdinand ORENDER DO [facility] CPT-4: 26089 01/18/2011 ([id number]) OFFICE/OUTPATIENT VISIT EST Lita TOBAR SUZANNE SFerdinand ORENDER DO [facility] CPT-4: 84634 12/19/2010 ([id number]) OFFICE/OUTPATIENT VISIT, EST Lita HOLMAN S. ORENDER DO [facility] CPT-4: 32793 04/05/2010 ([id number]) OFFICE/OUTPATIENT VISIT, EST Lita HOLMAN S. ORENDER DO [facility] CPT-4: 65256 01/13/2010 ([id number]) OFFICE/OUTPATIENT VISIT, [facility] CPT-4: 79842 12/23/2009 ([id number]) OFFICE/OUTPATIENT VISIT, [facility] CPT-4: 08962 12/22/2009 ([id number]) OFFICE/OUTPATIENT VISIT, [facility]ANNE [facility] CPT-4: 53928 12/13/2009 Plan of Care Planned Activity Notes Codes Status Date Visit Diagnosis Plan: Basal cell carcinoma, face [...] : J44.9 11/12/2019 Appointment: [phone] [facility] [facility] 11/12/2019 Care Plan: Referral Order SNOMED-CT : 30 1098850 Pending 11/12/2019 Care Plan: Referral Order SNOMED-CT : 30 8253658 Pending 11/12/2019 Visit Diagnosis Plan: Right thyroid nodule Discussion: Check thyroid US ICD-9 : 241.0 ICD-10 : E04.1 09/11/2019 Visit Diagnosis Plan: Chronic obstructive pulmonary di sease, unspecified Discussion: Start Pulmonary Rehab Reviewed results of CT of chest ordered by pulmonology Follow Up: 3 months ICD-9 : 496 ICD-10 : J44.9 09/11/2019 Appointment: Lita Barakat WPtel: [address] [place] [address] MEDICATION REVIEW 09/11/2019 Care Plan: US EXAM OF HEAD AND NECK LOIN C : 21339-1 Pending 09/11/2019 Visit Diagnosis Plan: Chronic bronchitis Discussion: A ugmentin for 10 days ICD-9 : 491.9 ICD-10 : J42 08/07/2019 Appointment: Lita Barakat WPtel: [facility] ACUTE ILLNESS 08/07/2019 Visit Diagnosis Plan: [...] him that overuse of symbicort can cause rn long term care damage and the albuterol is to be used every 4 hours as needed. call office later this week with worsening or no improvement ICD-9 : 491.21 ICD-10 : J44.1 07/14/2019 Appointment: Autumn Oneil [address] [place] [address] ACUTE ILLNESS 07/14/2019 Visit Diagnosis Plan: Dyspepsia [...] F51.01 07/01/2019 Appointment: Lita [facility] [phone] [facility] [facility] FOLLOW UP 07/01/2019 Care Plan: CT ABDOMEN W/O DYE LOINC : 36 103-0 Pending 07/01/2019 Care Plan: Referral Order SNOMED-CT : 30 9924034 Pending 07/01/2019 Visit Diagnosis Plan: Weight loss [...] R10.13 06/24/2019 Appointment: Lita [facility]at [facility] [phone] [facility] [facility] 06/24/2019 Patient Education: Seroquel- [employer] C[employer] [id number] https://www.[employer]/samplemd/resources/getResource/61/9np6n0o5-[email or web address] Completed 06/24/2019 Patient Education: ondansetron HCl- [employer]on [id number] https://www.[employer]/samplemd/resources/getResource/61/6604189a-6582-59d3-s5 Completed 06/24/2019 Care Plan: US EXAM ABDOM COMPLETE LOINC : 90677-7 Pending 06/24/2019 Visit Diagnosis Plan: Chronic insomnia [...] : H53.2 06/17/2019 Appointment: Lita Barakat WPtel: [address] [place], [place] [phone] US FOLLOW UP 06/17/2019 Appointment: Lita Barakat WPtel: [address] [place], [place] [phone] US INJECTION 06/10/2019 Appointment: Lita Barakat WPtel: [address] [place] [phone] US INJECTION 06/02/2019 Appointment: Lita Barakat WPtel: [address] [place], [place] [phone] US INJECTION 05/27/2019 Appointment: Lita Barakat WPtel: [address] [place], [place] [phone] US INJECTION 05/12/2019 Visit Diagnosis Plan: Anemia, [...] : E55.9 05/08/2019 Appointment: Lita Barakat WPtel: [address] [place], [place] [phone] FOLLOW UP 05/08/2019 Visit Diagnosis Plan: Pain in right knee Discussion: S top tramadol and tylenol q HS Trial of Hydrocodone 10/325mg po q HS Recheck 1month ICD-9 : 719.46 ICD-10 : M25.561 04/07/2019 Appointment: Lita Barakat WPtel: [facility] [place] [address] Follow Up 04/07/2019 Visit Diagnosis Plan: Chronic [...] ICD-10 : F41.1 03/24/2019 Appointment: Autumn Oneil [address] [place], [place] [phone] ACUTE ILLNESS 03/24/2019 Patient Education: hydroxyzine HCl- [employer] [id number] Completed 03/24/2019 Patient Education: pantoprazole- [employer]on [id number] Completed 03/24/2019 Visit Diagnosis Plan: Chronic obstructiv e pulmonary disease with (acute) exacerbation Discussion: 90 mg solumedrol given in of fice. patient's portable oxygen tank was empty. [id number] patient on importance of monitoring oxygen tank [...] ICD-10 : R42 03/21/2019 Appointment: Autumn Oneil [address] [place] [address] ACUTE ILLNESS 03/21/2019 Patient Education: ipratropium-albuterol- [employer] C taj [id number] https://www.[employer]/samplemd/resources/getResource/61/[email or web address]-99 Completed 03/21/2019 Visit Diagnosis Plan: Chronic obstructiv e pulmonary disease with (acute) exacerbation Discussion: Solumedrol now Use SVNs with duoneb at least q4hrs Patient is supposed to be on continuous oxygen but not wearing ICD-9 : 491.21 ICD-10 : J44.1 03/13/2019 Visit Diagnosis Plan: Candidal stomatitis Discussion: Diflucan and Nystatin susp ICD-9 : 112.0 ICD-10 : B37.0 03/13/2019 Appointment: Lita Barakat WPtel: [phone] ACUTE ILLNESS 03/13/2019 Patient Education: losartan- [employer]on [id number] Completed 03/13/2019 Patient Education: nystatin- [employer] C[employer]on [id number] Completed 03/13/2019 Patient Education: fluconazole- [employer]on [id number] Completed 03/13/2019 Visit Diagnosis Plan: Chronic obstructiv [...] : G25.81 03/10/2019 Appointment: Lita Barakat WPtel: [address] [place], [place] [phone] ACUTE ILLNESS 03/10/2019 Visit Diagnosis Plan: Restless legs syndrome Discussio n: Stop requip Increase sinemet to TID Add children's chewable MV with iron BID Add magnesium oxide 400mg daily Add Lyrica 75mg po q HS Stop trazadone Recheck 3 weeks Follow Up: 3 weeks ICD-9 : 333.94 ICD-10 : G25.81 02/26/2019 Appointment: Lita Barakat WPtel: [address] [place] [address] ACUTE ILLNESS 02/26/2019 Visit Diagnosis Plan: Primary insomnia Discussion: Tri al of doxepin 10-20mg po q HS prn sleep ICD-9 : 780.52 ICD-10 : F51.01 02/13/2019 Visit Diagnosis Plan: Chronic obstructive pulmonary di sease, unspecified Discussion: Stable Discussed trip to [place]--will get oxygen setup through [facility] ICD-9 : 496 ICD-10 : J44.9 02/13/2019 Appointment: Lita Barakat WPtel: [address] [place], [place] [phone] [place] FOLLOW UP 02/13/2019 Patient Education: doxepin- [employer] Coupon [id number] [email or web address] Completed 02/13/2019 Appointment: Lita Barakat WPtel: [address] [place], [place] [phone] [place] CANCELED 01/20/2019 Visit Diagnosis Plan: Chronic obstructive pulmonary di sease, unspecified Discussion: Stable on oxygen Given Symbicort samples Follow Up: 1 months ICD-9 : 496 ICD-10 : J44.9 01/14/2019 Appointment: Lita Barakat WPtel: [address] [place] [address] Follow Up 01/14/2019 Visit Diagnosis Plan: Chronic [...] : J96.11 12/25/2018 Appointment: Lita Barakat WPtel: [address] [place] [address] Follow Up 12/25/2018 Appointment: Lita Barakat WPtel: [address] [place] [address] CANCELED 12/23/2018 Appointment: Ines Banerjee [facility] [address] CANCELED 12/20/2018 Visit Diagnosis Plan: Acute recurrent [...] ICD-10 : I10 12/09/2018 Appointment: Ines Banerjee [facility] [address] LAB 12/09/2018 Patient Education: cefdinir- Opt[employer] Coupon [id number] https://www.[employer]/samplemd/resources/getResource/61/i9315z1g-45kd-6736-87 Completed 12/09/2018 Visit Diagnosis Plan: Candidal stomatitis Discussion: Diflucan for 5 days Hold atorvastatin while taking ICD-9 : 112.0 ICD-10 : B37.0 12/05/2018 Appointment: Lita Barakat WPtel: [address] [place] [address] ACUTE ILLNESS 12/05/2018 Patient Education: fluconazole- Optimize[employer] Coupon [phone] https://www.[employer]/resources/getResource/61/[email or web address] Completed 12/05/2018 Appointment: Lita Barakat WPtel: [address] [place] [address] NO SHOW 11/11/2018 Visit Plan: Saline nasal [...] : J01.91 10/23/2018 Appointment: Lita Barakat WPtel: [address] [place] [address] ACUTE ILLNESS 10/23/2018 Patient Education: prednisone- Opt[employer]RX Coupon [id number] https://www.[employer]/samplemd/resources/getResource/61/pk9br281-qjey-7167-78 Completed 10/23/2018 Care Plan: A1C HPLC LOINC : 33608-7 Pending 09/10/2018 Care Plan: COMPREHEN METABOLIC PANEL [place] NC : 69995-0 Pending 09/10/2018 Care Plan: CBC Pending 09/10/2018 [...] : G25.81 08/21/2018 Appointment: Lita Barakat WPtel: [address] [place] [address] ACUTE ILLNESS 08/21/2018 Care Plan: Referral Order SNOMED-CT : 30 2399487 Pending 08/21/2018 Visit Diagnosis Plan: Chronic obstructiv [...] : G25.81 08/07/2018 Appointment: Lita Barakat WPtel: [address] [place] [address] LM FOLLOW UP 08/07/2018 Appointment: Lita Barakat WPtel: [address] [place], [place] [phone] 07/18/18 1210---see note in chart (km) CANCELED 07/18/2018 Visit Diagnosis Plan: Chronic obstructiv e pulmonary disease with acute lower respiratory infection Discussion: Solumedrol 125mg IM Change t o trelagy 1 inhalation daily Use SVNs with albuterol q4hrs To ER this weekend if worsens Monitor weight/swelling ICD-9 : 496 ICD-10 : J44.0 05/23/2018 Appointment: [facility] [facility] [facility] 05/23/2018 Patient Education: Patient Medication Summary Completed 05/23/2018 Visit Diagnosis Plan: Candidal stomatitis Discussion: Diflucan for 7 more days--hold atrovastatin while taking ICD-9 : 112.0 ICD-10 : B37.0 05/02/2018 Appointment: Lita Barakat WPtel: [address] [facility] FOLLOW UP 05/02/2018 Patient Education: Patient Medication [...] ICD-10 : J44.0 04/29/2018 Appointment: Autumn Oneil [address] [place] [address] ACUTE ILLNESS 04/29/2018 Patient Education: Patient Medication [...] : J44.0 04/22/2018 Appointment: Lita Barakat WPtel: [address] [place] [address] Hospital Follow Up 04/22/2018 Patient Education: Patient Medication Summary Completed 04/22/2018 Appointment: Lita Barakat WPtel: [address] [place] [address] 04/09/18 1640---see message in chart from today [...] : M17.11 01/28/2018 Appointment: Lita Barakat WPtel: [address] [place] [address] ACUTE ILLNESS 01/28/2018 Patient Education: Patient Medication Summary Completed 01/28/2018 Care Plan: Referral Order SNOMED-CT : 30 9837134 Pending 01/28/2018 Care Plan: Referral Order SNOMED-CT : 30 2196259 Pending 01/28/2018 Visit Diagnosis Plan: Functional dyspepsia Discussion: Protonix Call in 1 week on how doing ICD-9 : 536.8 ICD-10 : K30 01/23/2018 Visit Diagnosis Plan: Pain in right knee Discussion: T noemi voltaren gel QID ICD-9 : 719.46 ICD-10 : M25.561 01/23/2018 Appointment: Lita Barakat WPtel: [address] [place] [address] ACUTE ILLNESS 01/23/2018 Patient Education: Patient Medication [...] : N39.0 01/02/2018 Appointment: Lita Barakat WPtel: [address] [place] [address] ACUTE ILLNESS 01/02/2018 Patient Education: Patient Medication [...] ICD-10 : J44.1 12/28/2017 Appointment: Autumn Oneil [address] [place], [place] [phone] [place] Consult 12/28/2017 Patient Education: Patient Medication Summary [...] ICD-10 : J20.9 12/21/2017 Appointment: Autumn Oneil [address] [place], [place] [id number] ACUTE ILLNESS 12/21/2017 Patient Education: Patient Medication Summary Completed 12/21/2017 Care Plan: X-RAY EXAM OF KNEE 1 OR 2 right [place] NC : 05480-5 Pending 12/18/2017 Visit Diagnosis Plan: Pain in [...] ICD-10 : J44.0 12/17/2017 Appointment: Autumn Oneil [address] [facility] ACUTE ILLNESS 12/17/2017 Patient Education: Patient Medication Summary Completed 12/17/2017 Visit Diagnosis Plan: Unilateral primary osteoarthriti s, right knee Discussion: Right knee injection as above Warned of elevated BS after injection ICD-9 : 715.96 ICD-10 : M17.11 12/11/2017 Appointment: Lita Barakattel: [address] [place], [place] [id number] OFFICE SURGERY 12/11/2017 Patient Education: Patient Medication Summary Completed 12/11/2017 Visit Diagnosis Plan: Actinic keratosis Discussion: Cr yotherapy as above If persists then will need excision by Dr. Swanson ICD-9 : 702.0 ICD-10 : L57.0 11/07/2017 Appointment: Lita Barakat WPtel: [address] [place] [address] ACUTE ILLNESS 11/07/2017 Patient Education: Patient Medication [...] 906.1 ICD-10 : S61.411S 10/17/2017 Appointment: Lita Barakattel: [address] [place], [place] [phone] ER Follow UP 10/17/2017 Patient Education: Patient Medication Summary Completed 10/17/2017 Appointment: Lita Barakat WPtel: [address] [place], [place] [phone] [place] Consult 08/15/2017 Visit Diagnosis Plan: Chronic [...] ICD-10 : J44.0 08/02/2017 Appointment: Autumn Oneil [address] [place] [address] ACUTE ILLNESS 08/02/2017 Patient Education: Patient Medication Summary Completed 08/02/2017 Patient Education: Patient Medication Summary Completed 07/31/2017 Care Plan: CHEST X-RAY 2VW FRONTAL&LATL LOINC : 05290-0 Pending 07/31/2017 Appointment: Lita Barakat WPtel: [address] [place] [address] [place] INJECTION 07/24/2017 Patient Education: Patient Medication [...] ICD-10 : J44.1 07/02/2017 Appointment: Autumn Oneil [address] [place] [address] ACUTE ILLNESS 07/02/2017 Patient Education: Patient Medication Summary Completed 07/02/2017 Care Plan: CHEST X-RAY 2VW FRONTAL&LATL LOINC : 29663-9 Pending 07/02/2017 Care Plan: MRI LUMBAR SPINE W/O DYE ANDREINAIN C : 12536-4 Pending 05/30/2017 Visit Plan: MRI at [facility] codone 5.325 1 po q 4-6 hours prn pain #40 NR and Cyclobenzaprine (ERx) Continue warm packs for pain RTC if no improvement 05/29/2017 Appointment: Ruchi Buchanan WPtel: [address] [place] [address] ACUTE ILLNESS 05/29/2017 Patient Education: Patient Medication Summary Completed 05/29/2017 Appointment: Lita Barakat WPtel: [address] [place], [place] [phone] [place] CANCELED 05/24/2017 Patient Education: Patient Medication Summary Completed 05/22/2017 Care Plan: X-RAY EXAM L-S SPINE 2/3 VWS LOINC : 67446-5 Pending 05/22/2017 Appointment: Lita Barakat WPtel: [address] [place], [place] [phone] [place] LAB 04/17/2017 Patient Education: Patient Medication Summary Completed 04/17/2017 Referral: Demetrius Benjamin WPtel: [address] [facility] [place] Referral Initiated 04/05/2017 Appointment: Lita Barakat WPtel: [address] [place], [place] [phone] 03/30/17 0930---spoke with patient about ointments (km Consult 03/30/2017 Appointment: Lita Barakat WPtel: [address] [place], [place] [phone] 03/29/17 1320---spoke with patient, requip refilled wasn't received at pharmacy so verbally called (km) Consult 03/29/2017 Patient Education: Patient Medication Summary Completed 03/01/2017 Care Plan: CHEST X-RAY 2VW FRONTAL&LATL LOINC : 81066-5 Pending 03/01/2017 Visit Diagnosis Plan: Bursitis of left shoulder Discus yesi: Injection as above ICD-9 : 726.10 ICD-10 : M75.52 02/01/2017 Appointment: Lita Barakat WPtel: [address] [place], [place] [phone] [place] 01/31 confirmed ~sl WORK IN 02/01/2017 Patient Education: Patient Medication Summary Completed 02/01/2017 Care Plan: X-RAY EXAM OF SHOULDER LOINC : 97352-2 Pending 01/30/2017 Visit Plan: May take OTC Tylenol/Ibuprof en as directed XRay at [facility] of left shoulder Tramadol 50mg 1 po q 6 hours prn pain called to [facility]. Sedation warning given (no driving, etc) RTC if no improvement 01/29/2017 Appointment: Ruchi Buchanan WPtel: [address] [place] [address] ACUTE ILLNESS 01/29/2017 Appointment: Ruchi Buchanan WPtel: [address] [place] [address] ACUTE ILLNESS 01/29/2017 Patient Education: Patient Medication Summary Completed 01/29/2017 Appointment: Lita Barakat WPtel: [address] [place] [address] [place] Consult 01/10/2017 Appointment: Lita Barakat WPtel: [address] [place] [address] 12/27/2016 Patient Education: Patient Medication Summary Completed [...] : R53.83 12/21/2016 Appointment: Lita Barakat WPtel: [address] [place] [address] ACUTE ILLNESS 12/21/2016 Patient Education: Patient Medication Summary Completed 12/21/2016 Appointment: Lita Barakat WPtel: [address] [place], [place] [phone] [place] CANCELED 12/18/2016 Visit Diagnosis Plan: Restless [...] D64.9 12/14/2016 Appointment: [facility]at [facility]el[facility] [address] [facility] [place] 12/13 confirmed ~sl WORK IN 12/14/2016 Appointment: Lita Barakat [facility]Ptel[facility] [address] [facility] [place] CANCELED 12/14/2016 Patient Education: Patient Medication Summary Completed 12/14/2016 Appointment: L[facility]akat [facility]Ptel[facility] [address] [facility] [place] LAB 12/12/2016 Patient Education: Patient Medication Summary Completed 12/12/2016 Appointment: L[facility]akat [facility]Ptel[facility] [address] [facility] [facility] ER this --called for reports Consult 12/11/2016 Appointment: L[facility]at [facility]Ptel[facility] [address] [facility] [place] CANCELED 12/04/2016 Visit Diagnosis Plan: [...] ICD-10 : G25.81 11/14/2016 Appointment: Magda Toth [address] [place] [address] MEDICATION REVIEW 11/14/2016 Patient Education: Patient Medication Summary Completed 11/14/2016 Appointment: Lita Barakat WPtel: [address] [place], [place] [address] [place] RESCHEDULED 11/02/2016 Visit Diagnosis Plan: Candidal stomatitis Discussion: Diflucan and Nystatin Hold atorvastatin while taking diflucan ICD-9 : 112.0 ICD-10 : B37.0 10/31/2016 Appointment: Lita Barakat WPtel: [address] [place] [address] ACUTE ILLNESS 10/31/2016 Patient Education: Patient Medication Summary Completed 10/31/2016 Appointment: Lita Barakat WPtel: [address] [place], [place] [phone] [place] Consult 10/23/2016 Appointment: Lita Barakat WPtel: [address] [place], [place] [phone] [place] CANCELED 10/18/2016 Visit Plan: Rx as above Wear O2 at all t imes as instructed by Dr Chacon Continue breathing treatments Supportive care otherwise reviewed Follow up ingrid if not improving 10/03/2016 Appointment: Lita Barakat WPtel: [address] [place], [place] [phone] [place] CANCELED 10/03/2016 Appointment: Magda Toth [address] [place] [address] ACUTE ILLNESS 10/03/2016 Patient Education: Patient Medication Summary Completed 10/03/2016 Visit Plan: Titrate requip to 1.5mg x 1 week Call if not helpful and will increase to 2mg qHS NO MORE nyquil at bedtime - discussed potential effects of decongestants on heart, oversedating himself, etc Will increase requip, then amitriptyline if needed to desired effect 09/04/2016 Appointment: Magda Toth [address] [place] [address] ACUTE ILLNESS 09/04/2016 Patient Education: Patient Medication Summary Completed 09/04/2016 Visit Plan: Stop requip and try elavil C ryotherapy as above See ENT for removal of right ear lesion 08/22/2016 Appointment: Lita Barakat WPtel: [address] [place] [address] ACUTE ILLNESS 08/22/2016 Patient Education: Patient Medication Summary Completed 08/22/2016 Visit Plan: Trial of requip 1mg q HS Res tart zoloft Recheck 1month 08/10/2016 Appointment: Lita Barakat WPtel: [address] [place] [address] ACUTE ILLNESS 08/10/2016 Patient Education: Patient Medication Summary Completed 08/10/2016 Visit Plan: Stop HCTZ Flagyl for diarrhe a Hydrate Discussed meds for restless legs Zofran prn Nausea 07/06/2016 Appointment: Lita Barakat WPtel: [address] [place] [address] 07/05 confirmed~ Hospital Follow Up 07/06/2016 Patient Education: Patient Medication Summary Completed 07/06/2016 Visit Plan: Reviewed with Dr Gasper Palacios sidering his recent history, instructed him to go straight to the ER called to notify her so she can meet him there 06/22/2016 Appointment: Magda Toth [address] [place] [address] ACUTE ILLNESS 06/22/2016 Patient Education: Patient Medication Summary Completed 06/22/2016 Visit Plan: Continue current meds Prevna r 13 and High Dose Flu given 06/13/2016 Appointment: Lita Barakat WPtel: [address] [place] [address] 06/13 confirmed~sl WORK IN 06/13/2016 Patient Education: Patient Medication Summary Completed 06/13/2016 Appointment: Lita Barakat WPtel: [address] [facility] just went over current medications CANCELED 06/08/2016 Visit Plan: Reviewed POC with Dr Barakat Stat cbc, cmp, d dimer, troponin, bnp, ekg, cxr If any worsening of symptoms while awaiting results, patient instructed to go to ER or call 911 06/01/2016 Appointment: Magda Toth [address] [place], [place] [phone] ACUTE ILLNESS 06/01/2016 Patient Education: Patient Medication Summary Completed 06/01/2016 Referral: José Miguel Swanson WPtel: [address] [place] [address] 04/[address] swanson's office, patient is [...] eval and treatment 04/26/2016 Appointment: Magda Toth [address] [place], [place] [phone] ACUTE ILLNESS 04/26/2016 Patient Education: Patient Medication Summary Completed 04/26/2016 Care Plan: Referral Order SNOMED-CT : 30 6004239 Pending 04/26/2016 Visit Plan: Left ear flushed after conse nt with warm water with peroxide with ear syringe Patient tolerated well Ear exam is wnl following flushing Follow up PRN 04/05/2016 Appointment: Magda Toth [address] [place], [place] [phone] ACUTE ILLNESS 04/05/2016 Patient Education: Patient Medication Summary Completed 04/05/2016 Visit Plan: Increase Levemir to 25u sc d aily Increase sertraline to 2 full tablets daily--200mg Debrox or cerumenex to bilateral ears q HS for 3 nights then flush or fwup for fushing Check lab in 2mos then fwup 04/03/2016 Appointment: Lita Barakat WPtel: [address] [facility] 03/31 03/31 lm ~sl FOLLOW UP 04/03/2016 Patient Education: Patient Medication Summary Completed 04/03/2016 Visit Plan: Patient informed of correct dosage of levemir and how to administer. Patient verbalizes understanding and will call if any questions/concerns. 10 Units of Levemir given in office SC to right lower abdom en. Patient tolerated well. Site without redness/irritation. 03/13/2016 Appointment: Lita Barakat WPtel: [address] [place], [place] [phone] SPECIAL 03/13/2016 Patient Education: Patient Medication Summary Completed 03/13/2016 Appointment: Lita Barakat WPtel: [address] [place], [place] [phone] LAB 03/06/2016 Patient Education: Patient Medication Summary Completed 03/06/2016 Visit Plan: Patient saw Dr. Chacon this week and was given prednisone taper for COPD Continue current meds Accuchecks daily Patient will return on Sunday morning for fasting lab incuding CBC, CMP, TSH, free T4, HbA1C, Lipids, Testosterone, PSA 03/02/2016 Appointment: Lita Barakat WPtel: [address] [place], [place] [phone] 03/01 confirmed ~sl FOLLOW UP 03/02/2016 Patient [...] how doing 02/17/2016 Appointment: Lita Barakat WPtel: [address] [place], [place] [phone] WORK IN 02/17/2016 Patient Education: Patient Medication Summary Completed 02/17/2016 Visit Plan: Xrays to further evaluate Alvarez spect heel spur(s) Will call with results Has had injections in the past that were helpful Dr Barakat can do them or can refer to podiatry if warranted 02/14/2016 Appointment: Magda Toth [address] [facility] ACUTE ILLNESS 02/14/2016 Patient Education: Patient Medication Summary Completed 02/14/2016 Visit Plan: Increase Zoloft to 150mg cooper ly 01/31/2016 Appointment: Lita Barakat WPtel: [address] [place], [place] [phone] 01/26 confirmed `sl FOLLOW UP 01/31/2016 Patient Education: Patient Medication Summary Completed 01/31/2016 Visit Plan: Decrease citalopram to 20mg q AM for 1 week then stop Start zoloft 50mg q HS for 1 week then increase to 100mg q HS 12/30/2015 Appointment: Lita Barakat WPtel: [address] [place], [place] [phone] 12/28 confirmed~sl ACUTE ILLNESS 12/30/2015 Patient Education: Patient Medication Summary Completed 12/30/2015 Visit Plan: Check Neck US 12/16/2015 Appointment: Lita Barakat WPtel: [address] [place], [place] [phone] 12/14 lm ~sl 12/15 confirmed-sp FOLLOW UP 12/16/2015 Patient Education: Patient Medication Summary Completed 12/16/2015 Care Plan: US EXAM OF HEAD AND NECK LOIN C : 47691-5 Ordered 12/16/2015 Appointment: Stephanie Rios WPtel: [address] [place], [place] [phone] [place] 12/09 confirmed-sp 12/12 lm ~sl Patient [...] PO TID 12/06/2015 Appointment: Stephanie Rios WPtel: [address] [place], [place] [phone] ACUTE ILLNESS 12/06/2015 Patient Education: Patient Medication Summary Completed 12/06/2015 Referral: Lisbeth Darby WPtel: [facility] [address] 11/18/15 called luther at [facility] office and confirmed time and date of appointment with patient~sl Initiated 11/18/2015 Visit Plan: Referral to Dermatology for removal of facial skin lesions Cefdinir PO bid Topical Mupirocin to skin lesions bid 11/15/2015 Appointment: Stephanie Rios WPtel: [address] [place], [place] [phone] ACUTE ILLNESS 11/15/2015 Patient Education: Patient Medication Summary Completed 11/15/2015 Visit Plan: Continue current meds Accuch ecks daily Fwup with ophthamology as scheduled Will check lab in 3mos then fwup due to recent meds that will affect blood sugar 10/05/2015 Appointment: Lita Barakat WPtel: [address] [place], [place] [phone] 10/04/15 appt confirmed cn Annual Well Visit 08/2016 Patient Education: Patient Medication Summary Completed 10/05/2015 Visit Plan: Alexis -1 sample box given Return visit in 6 weeks for fasting labs Notify for worsening symptoms such as Increased redness, swelling, pain or drainage of Rt. knee 07/22/2015 Appointment: Stephanie Rios WPtel: [address] [place], [place] [phone] 07/21 vm left cn FOLLOW UP 07/22/2015 Patient Education: Patient Medication Summary Completed 07/22/2015 Visit Plan: Continue to change dressing twice daily and apply Mupirocin Complete Doxycycline as directed. Follow-up for worsening symptoms, such as increased swelling, redness or pain. 07/01/2015 Appointment: Stephanie Rios WPtel: [address] [place], [place] [phone] [place] FOLLOW UP 07/01/2015 Patient Education: Patient Medication Summary Completed 07/01/2015 Visit Plan: Pressure dressing applied to draining wound left knee. Instructed to change dressing twice daily and continue Mupirocin topical Doxycycline PO bid x 10 days Wound culture obtained. Wound tissue sent to pathology Follow-up in 3 days 06/28/2015 Appointment: Stephanie Rios WPtel: [address] [place], [place] [phone] ACUTE ILLNESS 06/28/2015 Patient Education: Patient Medication Summary Completed 06/28/2015 Visit Plan: Complete antibiotics Follow- up for increased tenderness, swelling or drainage. 06/09/2015 Appointment: Stephanie Rios WPtel: [address] [place], [place] [phone] 06/08/15 lm FOLLOW UP 06/09/2015 Patient Education: Patient Medication Summary Completed 06/09/2015 Visit Plan: Apply pressure dressing toda y Continue antibiotics and topical Mupirocin Follow-up in 2 days Bursa drained from open area using pressure--serosanguinous drainage 06/07/2015 Appointment: Stephanie Rios WPtel: [address] [place], [place] [phone] 06/04/15 confirmed with patient FOLLOW UP 0 06/07/2015 Patient Education: Patient Medication Summary Completed 06/07/2015 Visit Plan: Wound culture Lt. knee Apply mupirocin to open wound bid Clindamycin 600 mg PO bid x 10 days Follow-up on Sunday06/03/2015 Appointment: Stephanie Rios WPtel: [address] [place], [place] [phone] ACUTE ILLNESS 06/03/2015 Patient Education: Patient Medication Summary Completed 06/03/2015 Visit Plan: Accuchecks daily Check CMP, HbA1C today Patient is noncompliant with meds and diet but patient says he is doing everything he is supposed to do Wants to try performomist instead of albuterol in SVN 06/01/2015 Appointment: Lita Barakat WPtel: [address] [place], [place] [phone] 05/28 appt confirmed cn FOLLOW UP 06/01/20 15 Patient Education: Patient Medication Summary Completed 06/01/2015 Visit Plan: Change Breo Ellipta to Advai r 500/50 1 p BID this next month Continue turdoza Use albuterol prn Check CMP, HbA1C today Accuchecks daily Cryotherapy as above 02/25/2015 Appointment: Lita Barakat WPtel: [address] [place], [place] [phone] 02/24 appt confirmed and explained needed payment he said ok FOLLOW UP 02/25/2015 Patient Education: Patient Medication Summary Completed 02/25/2015 Referral: Lopez Chacon [facility] C&D [id number] US Will put patient on cancellation list Initiated 12/08/2014 Appointment: Lita Barakat WPtel: [address] [place], [place] [phone] [place] [address] Follow Up 10/29/2014 Visit Plan: Finish prednisone Continue S VNs with albuterol QID See pulmonology and start Pulmonary rehab Once again discussed taking it easy this winter--that he is high risk for exacerbation 10/27/2014 Appointment: Lita Barakat WPtel: [address] [place], [place] [phone] FOLLOW UP 10/27/2014 Patient Education: Patient Medication Summary Completed 10/27/2014 Appointment: Lita Barakat WPtel: [address] [place], [place] [phone] FOLLOW UP 10/26/2014 Appointment: Stephanie Rios WPtel: [address] [place], [place] [phone] WORK IN 10/21/2014 Patient Education: Patient Medication Summary Completed 10/21/2014 Patient Education: Patient Medication Summary Completed 10/19/2014 Visit Plan: Continue oxygen and SVNS wit h duoneb Increase farxiga to 10mg daily Diflucan 100mg daily for 1week 10/06/2014 Appointment: Lita Barakat WPtel: [address] [place], [place] [phone] Moved appt time to 2:45pm FOLLOW UP 2014 Patient Education: Patient Medication Summary Completed 10/06/2014 Visit Plan: Finish omnicef Continue Breo BID and Turdoza Use SVNS with duoneb at least TID for next 2weeks then go to prn 09/21/2014 Appointment: Lita Barakat WPtel: [address] [place], [place] [address] [facility] Follow Up 09/21/2014 Patient Education: Patient Medication Summary Completed 09/21/2014 Patient Education: [facility] - [employer] - Ventolin HFA - 18+ - Dynamic Portal ID Completed 09/21/2014 Appointment: Stephanie Rios WPtel: [address] [place], [place] [phone] Scheduled by 09/07 patient rescheduled to 09/08 with Stephanie. Hospital Follow Up 09/08/2014 Patient Education: Patient Medication Summary Completed 09/08/2014 Appointment: Stephanie Rios WPtel: [address] [place], [place] [phone] FOLLOW UP 09/02/2014 Patient Education: Patient Medication Summary Completed 09/02/2014 Patient Education: [employer] - Antibi otics, Analgesics 18+, Oral Contraceptives F 18+ Completed 09/02/2014 Appointment: Lita Barakat WPtel: [address] [place], [place] [phone] [facility] 08/27/2014 Patient Education: Patient Medication Summary Completed [...] prn sleep 08/10/2014 Appointment: Lita Barakat WPtel: [phone] [facility] Annual Well Visit 08/10/2014 Patient Education: Patient Medication Summary Completed 08/10/2014 Appointment: Lita Barakat WPtel: [address] [place], [place] [phone] [place] LAB 08/05/2014 Patient Education: Patient Medication Summary Completed 08/05/2014 Visit Plan: ECHO results reviewed Contin ue Breo and Turdoza Pt starts PT this afternoon for back--has had one epidural with no help in pain 05/05/2014 Appointment: Lita Barakat WPtel: [address] [place] [address] FOLLOW UP 05/05/2014 Patient Education: Patient Medication Summary Completed 05/05/2014 Visit Plan: Continue Breo and Turdoza Camargo s heart tests scheduled next week Will see surgeon for removal of skin cancer to neck after done with cardiac workup 03/24/2014 Appointment: Lita Barakat WPtel: [address] [place] [address] FOLLOW UP 03/24/2014 Patient Education: Patient Medication Summary Completed 03/24/2014 Visit Plan: Proceed with cardiology eval uation as patient is has numerous risk factors for CAD Change Symbicort to Breo 1p BID and add Turdorza 1p BID Recheck in weeks Check 2-D ECHO and lexiscan 03/10/2014 Appointment: Lita Barakat WPtel: [address] [place], [place] [phone] FOLLOW UP 03/10/2014 Patient Education: Patient Medication Summary Completed 03/10/2014 Visit Plan: Shoulder injection as above Back brace to use when doing any lifting for stability 12/16/2013 Appointment: Lita Barakat WPtel: [address] [place], [place] [phone] ACUTE ILLNESS 12/16/2013 Patient Education: Patient Medication Summary Completed 12/16/2013 Visit Plan: Continue symbicort and Turdo za Salt water gargles Omnicef 300mg 2 po daily for 1wk Phenergan with codeine 10/09/2013 Appointment: Lita Barakat WPtel: [address] [place], [place] [phone] WORK IN 10/09/2013 Patient Education: Patient Medication Summary Completed 10/09/2013 Appointment: Ruchi Buchanan WPtel: [address] [place], [place] [id number] ACUTE ILLNESS 09/18/2013 Patient Education: Patient Medication Summary Completed 09/18/2013 Visit Plan: Check on repeat CXR Finish a bx Start Tradjenta to replace metformin 08/13/2013 Appointment: Lita Barakat WPtel: [address] [place], [place] [phone] 08/12 Hospital Follow Up 08/13/2013 Patient Education: Patient Medication Summary Completed 08/13/2013 Visit Plan: Admit to hospital 08/06/2013 Appointment: Stephanie Rios WPtel: [address] [place] [address] ACUTE ILLNESS 08/06/2013 Patient Education: Patient Medication Summary Completed 08/06/2013 Visit Plan: Continue current meds Contin ue accuchecks daily Proceed with stress test due to high risk for CAD 07/16/2013 Appointment: Lita Barakat WPtel: [address] [place] [address] FOLLOW UP 07/16/2013 Patient Education: Patient Medication Summary Completed 07/16/2013 Appointment: Lita Barakat WPtel: [address] [place] [address] LAB 06/25/2013 Patient Education: Patient Medication Summary Completed 06/25/2013 Visit Plan: prednisone and azithromycin. Doing CBC and mycoplasma blood draw. Will continue inhaler and albuterol breathing treatments. 04/09/2013 Appointment: Kimberly Villalba WPtel: [address] [place] [address] ACUTE ILLNESS 04/09/2013 Patient Education: Patient Medication Summary Completed 04/09/2013 Appointment: Lita Barakat WPtel: [address] [place] [address] ACUTE ILLNESS 02/11/2013 Patient Education: Patient Medication Summary Completed 02/11/2013 Appointment: Ruchi Buchanan WPtel: [address] [place] [address] ACUTE ILLNESS 01/31/2013 Patient Education: Patient Medication Summary Completed 01/31/2013 Visit Plan: Cefdinir and medrol dose pac k. Codeine/guiaf cough syrup. Has colonoscopy on Sunday. Pt. is to notify if fever occurs or symptoms worsen. Hydration and rest. 01/20/2013 Appointment: Kimberly Villalba WPtel: [address] [place], [place] [phone] ACUTE ILLNESS 01/20/2013 Patient Education: Patient Medication Summary Completed 01/20/2013 Visit Plan: Scopalamine patch and vestib ular exercises 12/19/2012 Appointment: Lita Barakat WPtel: [address] [place] [address] ACUTE ILLNESS 12/19/2012 Patient Education: Patient Medication Summary Completed 12/19/2012 Visit Plan: Dr. Swanson consult if no impr ovement in hearing. Pt. reports he will notify if no better in one week. [facility] consult for skin lesion. 10/21/2012 Appointment: Kimberly Villalba WPtel: [address] [place], [place] [phone] ACUTE ILLNESS 10/21/2012 Patient Education: Patient Medication Summary Completed 10/21/2012 Appointment: Lita Barakat WPtel: [address] [place], [place] [phone] [place] LAB 09/19/2012 Patient Education: Patient Medication Summary Completed 09/19/2012 Visit Plan: Check fasting lab in AM--CMP , Lipids, HbA1C 09/18/2012 Appointment: Lita Barakat WPtel: [address] [place], [place] [phone] FOLLOW UP 09/18/2012 Patient Education: Patient Medication Summary Completed 09/18/2012 Appointment: Lita Barakat WPtel: [address] [place], [place] [phone] appt time scheduled sooner FOLLOW UP 09/05 Visit Plan: Doxycycline and Prednisone I ncrease SVN to QID Add back Symbicort 160/4.5 2 p BID 08/28/2012 Appointment: Lita Barakattel: [address] [place], [place] [phone] [place] FOLLOW UP 08/28/2012 Patient Education: Patient Medication Summary Completed 08/28/2012 Appointment: Lita Barakat WPtel: [address] [place], [place] [phone] Annual Well Visit 07/10/2012 Patient Education: Patient Medication Summary Completed 07/10/2012 Visit Plan: Finish Z-pack Add Nasonex Ad d Meclizine Vestibular exercises Continue current meds and accuchecks Check lab and fwup in 4mos 05/09/2012 Appointment: Lita Barakattel: [address] [place], [place] [phone] [place] number no longer works FOLLOW UP 2 Patient Education: Patient Medication Summary Completed 05/09/2012 Appointment: Lita Barakattel: [address] [place], [place] [phone] [place] LAB 05/06/2012 Patient Education: Patient Medication Summary Completed 05/06/2012 Appointment: Lita Barakat WPtel: [address] [place], [place] [phone] [place] LAB 05/02/2012 Appointment: Lita Barakat WPtel: [address] [place], [place] [phone] [place] INJECTION 02/05/2012 Patient Education: Patient Medication Summary Completed 02/05/2012 Visit Plan: cefdinir. Will focus on rest and fluids. Pt. reports he is using breathing treatments as needed. Pt. will monitor for worsening symptoms or fever. 10/02/2011 Appointment: Kimberly Villalba WPtel: [address] [place], [place] [phone] [place] ACUTE ILLNESS 10/02/2011 Patient Education: Patient Medication Summary Completed 10/02/2011 Appointment: Lita Barakattel: [address] [place], [place] [phone] [place] INJECTION 08/10/2011 Patient Education: Patient Medication Summary Completed 08/10/2011 Visit Plan: Continue current meds Restar t Advair Restart exercise Flu shot given 08/07/2011 Appointment: Lita Barakat WPtel: [address] [place], [place] [phone] [place] FOLLOW UP 08/07/2011 Patient Education: Patient Medication Summary Completed 08/07/2011 Appointment: Lita Barakat WPtel: [address] [place], [place] [phone] [place] LAB 07/26/2011 Patient Education: Patient Medication Summary Completed 07/26/2011 Visit Plan: ALEKSANDER Carmen Continue Metformin but change to BID Add Lantus 25u sc q PM BS readings in 1wk 04/03/2011 Appointment: Lita Barakat WPtel: [address] [place] [address] [place] ACUTE ILLNESS 04/03/2011 Patient Education: Patient Medication Summary Completed 04/03/2011 Appointment: Lita Barakat WPtel: [address] [place], [place] [phone] [place] INJECTION 01/19/2011 Patient Education: Patient Medication Summary Completed 01/19/2011 Appointment: Lita Barakat WPtel: [address] [place], [place] [phone] [place] ACUTE ILLNESS 01/18/2011 Patient Education: Patient Medication Summary Completed 01/18/2011 Appointment: Lita Barakat WPtel: [address] [place], [place] [phone] [place] INJECTION 12/21/2010 Patient Education: Patient Medication Summary Completed 12/21/2010 Appointment: Lita Barakat WPtel: [address] [place], [place] [phone] FOLLOW UP 12/19/2010 Patient Education: Patient Medication Summary Completed 12/19/2010 Appointment: Lita Barakat WPtel: [address] [place], [place] [phone] LAB 12/07/2010 Patient Education: Patient Medication Summary Completed 12/07/2010 Appointment: Kimberly Villalba WPtel: [address] [place], [place] [phone] ACUTE ILLNESS 04/05/2010 Patient Education: Patient Medication Summary Completed 04/05/2010 Appointment: Lita Barakat WPtel: [address] [place], [place] [phone] WORK IN 03/14/2010 Patient Education: Patient Medication Summary Completed 03/14/2010 Appointment: Lita Barakat WPtel: [address] [place], [place] [phone] LAB 03/02/2010 Visit Plan: HbA1C in 3mos. Continue Accu checks BID alternating times. Switch lexapro to celexa 01/13/2010 Appointment: Lita Barakat WPtel: [address] [place], [place] [phone] FOLLOW UP 01/13/2010 Patient Education: Patient Medication Summary Completed 01/13/2010 Appointment: Lita Barakat WPtel: [address] [place], [place] [phone] FOLLOW UP 01/11/2010 Visit Plan: Pt. will continue the Avalox and Doxycycline regimen as prescribed the previous day. He has been advised to continue inhalers, breathing treatments and oxygen therapy for at least the weekend. Moderate activity without strenuous exercise. The pt. will seek immediate re-eval if his symptoms worsen. 12/23/2009 Appointment: Kimberly Villalba WPtel: [address] [place], [place] [phone] FOLLOW UP 12/23/2009 Patient Education: Patient Medication [...] tomorrow morning. 12/22/2009 Appointment: Kimberly Villalba WPtel: [address] [place] [address] ACUTE ILLNESS 12/22/2009 Patient Education: Patient Medication Summary Completed 12/22/2009 Appointment: Kimberly Villalba WPtel: [address] [place] [address] FOLLOW UP 12/21/2009 Appointment: Lita Barakat WPtel: [address] [place] [address] [place] INJECTION 12/16/2009 Patient Education: Patient Medication Summary Completed 12/16/2009 Appointment: Kimberly Villalba WPtel: [address] [place] [address] ACUTE ILLNESS 12/13/2009 Patient Education: Patient Medication Summary Completed 12/13/2009 Care Plan: X-RAY EXAM OF SHOULDER lt shoulder (pain ra diates across the shoulder) Hand carried orders to [facility] LOINC : 27629-8 Ordered 12/13/2009 Care Plan: X-RAY EXAM THORAC SPINE 2VWS Hand carried order LOINC : 11271-7 Ordered 12/13/2009 Care Plan: X-RAY EXAM RIBS UNI 2 VIEWS Posterior ribs of lt. side Pt. hand carries order to [facility] LOINC : 15317-1 Ordered 12/13/2009 Referral: José Miguel Swanson WPtel: [address] Referral Appointment Requested Referral: José Miguel Swanson WPtel: [address] [place] [address] [place] Referral Appointment Requested Referral: Chandu Quarles WPtel: [address] Quarles for screening colonoscopy. Diane gerber notified that [facility] office will book appt with him Initiated Referral: Santosh Machado WPtel: #[address] [facility] [place] [address] [place] Referral Appointment Requested Referral: José Miguel Swanson WPtel: [address] [place] [address] [place] Referral Initiated Referral: Lopez Chacon [address] [facility] [address] Referral Initiated Referral: Demetrius Benjamin WPtel: [address] [place] [address] [place] Referral Appointment Requested Referral: José Miguel Swanson WPtel: [address] [place] [address] [place] Referral Appointment Requested Referral: José Miguel Swanson WPtel: [address] [place] [address] [place] Referral Initiated Instructions Comment . Saline nasal flushes prn. Tylenol/Motr in prn headache. Notify if persists/symptoms worsening. . MRI at [facility] Hydrocodone 5.325 1 po q [...]
--- OUTSIDE RECORDS SUMMARY | 2019-12-31 00:34 | XMS REPORT | CCD ---
Author Author Leandro Barakat D.O. 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.] 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.9 06/22/2016 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: [...] Start Date Stop Date Status Fill Instructions Seroquel 50 mg tablet RxNorm: 061259 1 Tablet(s) Oral QPM as ne eded for sleep 10/07/2019 12/05/2019 Active ropinirole 4 mg tablet RxNorm: 764085 3 TABLET(S) BY [facility] DAILY AT BEDTIME FOR RESTLESS LEGS 09/29/2019 12/27/2019 Active Generic For:REQU IP 4 MG TABLET 09/29/2019 7:52:42 AM N O T I C E Last quantity doesn't match original quantity ipratropium 0.5 mg-albuterol 3 mg (2.5 mg base)/3 mL n ebulization soln RxNorm: 2129202 USE 1 VIAL IN NEBULIZER EVERY FOUR HOURS (THIS REPLACES ALBUTEROL SOLUTION) 09/26/2019 10/15/2019 Inactive Generic For:*DUO NEB 2.5-0.5 MG/3 ML SOLN 09/26/2019 9:08:53 AM ropinirole 4 mg tablet RxNorm: 152375 3 TABLET(S) BY [facility] DAILY AT BEDTIME FOR RESTLESS LEGS 09/26/2019 09/28/2019 Inactive Generic For:REQU IP 4 MG TABLET 09/26/2019 9:08:48 AM N O T I C E Last quantity doesn't match original quantity hydrocodone 10 mg-acetaminophen 325 mg tablet RxNorm: 813709 1 Tablet(s) Oral Q4H as needed for pain 09/09/2019 09/09/2019 Inactive hydrocodone 10 mg-acetaminophen 325 mg tablet RxNorm: 340585 1 Tablet(s) Oral Q4H as needed for pain 09/09/2019 09/08/2019 Inactive ondansetron HCl 4 mg tablet RxNorm: 548466 1 Tablet(s) Oral QPM for nausea 08/12/2019 10/10/2019 Inactive ipratropium 0.5 mg-albuterol 3 mg (2.5 mg base)/3 mL n ebulization soln RxNorm: 1517277 1 Unit Dose INH Q4H 08/12/2019 09/25/2019 Inactive replaces albuterol solution Augmentin 875 mg-125 mg tablet RxNorm: 645412 1 Tablet(s) Oral two times a day 08/07/2019 08/17/2019 Inactive prednisone 20 mg tablet RxNorm: 961480 1 Tablet(s) Oral QD 08/05/2008/04/2019 Inactive prednisone 20 mg tablet RxNorm: 144677 1 Tablet(s) Oral QD 08/05/2008/06/2019 Inactive Levaquin 500 mg tablet RxNorm: 207357 1 Tablet(s) Oral QD Replaces azithromycin (z-pack) 07/31/2019 08/05/2019 Inactive Levaquin 500 mg tablet RxNorm: 980726 1 Tablet(s) Oral QD Replaces azithromycin (z-pack) 07/21/2019 07/26/2019 Inactive Levaquin 500 mg tablet RxNorm: 528372 1 Tablet(s) Oral QD Replaces azithromycin (z-pack) 07/21/2019 07/20/2019 Inactive Zithromax Z-Gui 250 mg tablet RxNorm: 115626 Tablet(s) Oral 019 07/22/2019 Inactive Zithromax Z-Gui 250 mg tablet RxNorm: 163860 Tablet(s) Oral 019 07/15/2019 Inactive Symbicort 160 mcg-4.5 mcg/actuation HFA aerosol inhaler RxNo rm: 0688901 2 Puff(s) Inhalation two times a day 07/14/2019 07/14/2019 Inactive Tessalon Perles 100 mg capsule RxNorm: 007749 1 Capsule(s) Oral Q8H as needed 07/14/2019 08/06/2019 Inactive Seroquel 50 mg tablet RxNorm: 869476 1 Tablet(s) Oral QPM as ne eded for sleep 07/01/2019 10/06/2019 Inactive ondansetron HCl 4 mg tablet RxNorm: 803777 1 Tablet(s) Oral QPM for nausea 06/24/2019 07/24/2019 Inactive Seroquel 25 mg tablet RxNorm: 522387 1 Tablet(s) Oral every nig ht at bedtime 06/19/2019 06/18/2019 Inactive Seroquel 25 mg tablet RxNorm: 812577 1 Tablet(s) Oral every nig ht at bedtime 06/19/2019 06/30/2019 Inactive trazodone 150 mg tablet RxNorm: 382025 1/2 Tablet(s) PO QHS as needed for sleep 06/11/2019 06/17/2019 Inactive replaces PA on doxep in trazodone 150 mg tablet RxNorm: 636900 1/2 Tablet(s) PO QHS as needed for sleep 05/12/2019 06/11/2019 Inactive replaces PA on doxep in cyanocobalamin (vit B-12) 1,000 mcg/mL injection solution Rx Norm: 641837 1 injection weekly for 4 weeks 1 Milliliter(s) Inj 05/09/2019 No Stop Date Active Vitamin D3 5,000 unit tablet RxNorm: 581749 1 Tablet(s) PO QD 05/09 No Stop Date Active ferrous sulfate 325 mg (65 mg iron) tablet RxNorm: 112088 1 Tab let(s) PO QD 05/09/2019 No Stop Date Active magnesium oxide 400 mg (241.3 mg magnesium) tablet RxNorm: 1 78413 1 Tablet(s) PO QHS 05/09/2019 No Stop Date Active ropinirole 4 mg tablet RxNorm: 952644 3 TABLET(S) BY [facility] DAILY AT BEDTIME FOR RESTLESS LEGS 03/26/2019 06/23/2019 Inactive Generic For:REQU IP 4 MG TABLET 03/26/2019 11:23:36 AM N O T I C E Last quantity doesn't match original quantity pantoprazole 40 mg tablet,delayed release RxNorm: 410597 Tablet(s) TAKE 1 TABLET BY MOUTH DAILY FOR STOMACH 03/24/2019 06/21/2019 Inactive Gener ic For:PROTONIX 40MG TAB EC 01/03/2019 1:23:44 PM hydroxyzine HCl 10 mg tablet RxNorm: 787974 1 Tablet(s) PO BID as needed 03/24/2019 04/06/2019 Inactive ipratropium-albuterol 0.5 mg-3 mg(2.5 mg base)/3 mL ne bulization soln RxNorm: 0520343 1 Unit Dose INH Q4H 03/21/2019 No Stop Date Active replaces albuterol solution meclizine 12.5 mg tablet RxNorm: 708761 1 Tablet(s) PO BID as neede d 03/21/2019 No Stop Date Active losartan 100 mg tablet RxNorm: 561418 1 Tablet(s) PO QD replace s lisinopril 03/13/2019 09/08/2019 Inactive fluconazole 100 mg tablet RxNorm: 253203 1 Tablet(s) PO QD 03/13/20 19 03/19/2019 Inactive nystatin 100,000 unit/mL oral suspension RxNorm: 620462 5 Unit( s) PO QID 03/13/2019 03/26/2019 Inactive tramadol 50 mg tablet RxNorm: 678207 1 Tablet(s) PO TID as needed for pain TAKE 2 TABS OF EXTRA STRENGTH TYLENOL WITH EACH DOSE 03/10/2019 04/06/2019 Inactive Generic For:*ULTRAM 50 MG TABLET 01/15/2019 4:55:26 PM Sinemet CR 50 mg-200 mg tablet,extended release RxNorm: 8343 41 1 Tablet(s) PO TID 02/26/2019 08/24/2019 Inactive Generic For:*SIN EMET CR 50/200 TABLET SA 07/08/2018 3:09:11 PM trazodone 150 mg tablet RxNorm: 058213 1/2 Tablet(s) PO QHS as needed for sleep 02/13/2019 02/12/2019 Inactive trazodone 150 mg tablet RxNorm: 399592 1/2 Tablet(s) PO QHS as needed for sleep 02/13/2019 02/25/2019 Inactive replaces PA on doxep in doxepin 10 mg capsule RxNorm: 4532871 1-2 Capsule(s) PO QHS prn sleep 02/13/2019 02/13/2019 Inactive Novolog U-100 Insulin aspart 100 unit/mL subcutaneous soluti on RxNorm: 944463 INJECT 10 UNIT(S) SUBCUTANEOUSLY BEFORE MEALS 01/31/2019 05/30/2019 In active 01/31/2019 1:39:10 PM ipratropium-albuterol 0.5 mg-3 mg(2.5 mg base)/3 mL ne bulization soln RxNorm: 6597018 1 Unit Dose INH Q4H 01/17/2019 03/20/2019 Inactive replaces albuterol solution tramadol 50 mg tablet RxNorm: 906202 1 Tablet(s) PO TID as needed for pain TAKE 2 TABS OF EXTRA STRENGTH TYLENOL WITH EACH DOSE 01/15/2019 02/03/2019 Inactive Generic For:*ULTRAM 50 MG TABLET 01/15/2019 4:55:26 PM Sinemet CR 50 mg-200 mg tablet,extended release RxNorm: 8343 41 1 Tablet(s) PO BID 01/03/2019 02/25/2019 Inactive Generic For:*SIN EMET CR 50/200 TABLET 07/08/2018 3:09:11 PM losartan 100 mg tablet RxNorm: 462019 1 Tablet(s) PO QD replace s lisinopril 01/03/2019 03/12/2019 Inactive Symbicort 160 mcg-4.5 mcg/actuation HFA aerosol inhaler RxNo rm: 3600720 2 Puff(s) INH BID 01/03/2019 01/02/2019 Inactive pantoprazole 40 mg tablet,delayed release RxNorm: 987448 TAKE 1 TABLET BY MOUTH DAILY FOR STOMACH 01/03/2019 03/23/2019 Inactive Generic For:SD OTONIX 40MG TAB EC 01/03/2019 1:23:44 PM nystatin 100,000 unit/mL oral suspension RxNorm: 891019 Unit(s) 5 Unit(s) PO QID swish and spit 01/02/2019 11/11/2019 Inactive Incruse Ellipta 62.5 mcg/actuation powder for inhalation RxN orm: 3626287 1 Capsule(s) INH QD 12/25/2018 No Stop Date Active Tessalon Perles 100 mg capsule RxNorm: 321337 1 Capsule(s) PO T ID for cough 12/25/2018 02/25/2019 Inactive Medrol (Gui) 4 mg tablets in a dose pack RxNorm: 707845 Tablet(s) PO Use as directed 12/23/2018 01/02/2019 Inactive Levemir FlexTouch U-100 Insulin 100 unit/mL (3 mL) sub cutaneous pen RxNorm: 855140 20 Unit(s) SQ QD with pen needles 12/13/2018 05/11/2019 Inactiv e prednisone 20 mg tablet RxNorm: 883871 1 Tablet(s) PO QD 12/12/2018 0 12/11/2018 Inactive prednisone 20 mg tablet RxNorm: 507611 1 Tablet(s) PO QD 12/12/2018 0 12/16/2018 Inactive promethazine 6.25 mg-codeine 10 mg/5 mL syrup RxNorm: 541716 5 Milliliter(s) PO QHS as needed for cough 12/09/2018 12/18/2018 Inactive cefdinir 300 mg capsule RxNorm: 869342 1 Capsule(s) PO BID 12/10/19 19 12/18/2018 Inactive fluconazole 100 mg tablet RxNorm: 793019 1 Tablet(s) PO QD 12/06/19 19 12/08/2018 Inactive ropinirole 4 mg tablet RxNorm: 831991 3 Tablet(s) PO QHS for re stless legs 12/04/2018 03/03/2019 Inactive Novolog U-100 Insulin aspart 100 unit/mL subcutaneous soluti on RxNorm: 100324 INJECT 10 UNIT(S) SUBCUTANEOUSLY BEFORE MEALS 12/04/2018 01/30/2019 In active 12/04/2018 10:02:42 AM nystatin 100,000 unit/mL oral suspension RxNorm: 631100 5 Unit(s) PO QID swish and spit 11/25/2018 12/18/2018 Inactive ropinirole 4 mg tablet RxNorm: 186164 3 Tablet(s) PO QHS for re stless legs 11/04/2018 12/03/2018 Inactive prednisone 20 mg tablet RxNorm: 008428 1 Tablet(s) PO BID 10/23/2018 10/29/2018 Inactive ropinirole 4 mg tablet RxNorm: 384824 3 Tablet(s) PO QHS for re stless legs 10/14/2018 11/04/2018 Inactive pantoprazole 40 mg tablet,delayed release RxNorm: 053999 1 Tablet(s) PO QD forstomach 10/10/2018 01/02/2019 Inactive Symbicort 160 mcg-4.5 mcg/actuation HFA aerosol inhaler RxNo rm: 2986767 2 Puff(s) INH BID 10/10/2018 01/03/2019 Inactive Novolog U-100 Insulin aspart 100 unit/mL subcutaneous soluti on RxNorm: 384262 INJECT 10 UNIT(S) SUBCUTANEOUSLY BEFORE MEALS 10/10/2018 12/03/2018 In active 10/10/2018 11:30:01 AM Sinemet CR 50 mg-200 mg tablet,extended release RxNorm: 8343 41 1 Tablet(s) PO BID 09/26/2018 01/03/2019 Inactive Generic For:*SIN EMET CR 50/200 TABLET SA 07/08/2018 3:09:11 PM ropinirole 4 mg tablet RxNorm: 530487 2 Tablet(s) PO QHS for re stless legs 09/18/2018 10/13/2018 Inactive metformin ER 1,000 mg tablet,extended release 24hr RxNorm: 1 208291 1 Tablet(s) PO BID 09/09/2018 12/18/2018 Inactive ropinirole 4 mg tablet RxNorm: 062400 2 Tablet(s) PO QHS for re stless legs 08/21/2018 09/17/2018 Inactive doxycycline hyclate 100 mg capsule RxNorm: 9698541 1 Capsule(s) PO BID 08/07/2018 08/13/2018 Inactive ropinirole 4 mg tablet RxNorm: 356184 1 Tablet(s) PO QHS replac es 1mg dose 08/07/2018 08/20/2018 Inactive ropinirole 2 mg tablet RxNorm: 416002 TAKE 3 TABLETS BY MOUTH DAILY AT BEDTIME DO NOT EXCEED 3 TABLETS PER DAY!!!! 07/31/2018 08/06/2018 Inactive Generic For:REQUIP 2 MG TABLET 07/30/2018 3:50:28 PM Symbicort 160 mcg-4.5 mcg/actuation HFA aerosol inhaler RxNo rm: 5137337 2 Puff(s) INH BID 07/12/2018 10/09/2018 Inactive Sinemet CR 50 mg-200 mg tablet,extended release RxNorm: 8343 41 TAKE 1 TABLET BY MOUTH TWICE DAILY 07/08/2018 09/26/2018 Inactive Generic For:*S INEMET CR 50/200 TABLET SA 07/08/2018 3:09:11 PM losartan 100 mg tablet RxNorm: 425007 1 Tablet(s) PO QD replace s lisinopril 06/17/2018 12/13/2018 Inactive Novolog U-100 Insulin aspart 100 unit/mL subcutaneous soluti on RxNorm: 076886 10 Unit(s) SQ AC 06/17/2018 10/09/2018 Inactive albuterol sulfate 2.5 mg/3 mL (0.083 %) solution for n ebulization RxNorm: 193431 Milliliter(s) INH USE 1 VIAL IN NEBULIZE R EVERY FOUR HOURS NEEDED FOR WHEEZING OR SHORTNESS OF BREATH 06/13/2018 01/16/2019 Inactive Generic For:*PROVENTIL 0.83 MG/ML SOLUTN 06/13/2013 2:04:46 PM ropinirole 2 mg tablet RxNorm: 606098 3 Tablet(s) PO QH S DO NOT EXCEED 6MG (3 TABLETS) PER DAY!!!! 06/13/2018 07/31/2018 Inactive atorvastatin 40 mg tablet RxNorm: 369821 Tablet(s) TAKE 1 TABLET BY MOUTH EVERY DAY 05/13/2018 12/18/2018 Inactive Generic For:LIPI TOR 40MG TAB 05/01/2018 8:37:31 AM Sinemet CR 50 mg-200 mg tablet,extended release RxNorm: 8343 41 1 Tablet(s) PO BID 05/08/2018 07/06/2018 Inactive Lidocaine Viscous 2 % mucosal solution RxNorm: 3861746 5 Milliliter(s) PO QID as needed 05/02/2018 08/06/2018 Inactive Diflucan 100 mg tablet RxNorm: 647492 1 Tablet(s) PO QD 05/02/2018 Inactive atorvastatin 40 mg tablet RxNorm: 428861 TAKE 1 TABLET BY MOUTH EVERY DAY 05/01/2018 05/13/2018 Inactive Generic For:LIPITOR 40MG TAB 05/01/2018 8:37:31 AM nystatin 100,000 unit/mL oral suspension RxNorm: 593324 5 Unit(s) PO QID (before meals and at bedtime) 04/24/2018 04/30/2018 Inactive Ventolin HFA 90 mcg/actuation aerosol inhaler RxNorm: 362640 2 Puff(s) INH Q4H as needed one inhaler for home and one inhaler for car 04/23/201812/18 Inactive Mucinex 600 mg tablet, extended release RxNorm: 568446 1 Tablet(s) PO BID for congestion 04/22/2018 05/21/2018 Inactive prednisone 10 mg tablet RxNorm: 827668 Tablet(s) PO as directeds 08/06/2018 Inactive ropinirole 2 mg tablet RxNorm: 978575 3 Tablet(s) PO QH S DO NOT EXCEED 6MG (3 TABLETS) PER DAY!!!! 04/09/2018 05/08/2018 Inactive gabapentin 300 mg capsule RxNorm: 758520 1-2 Capsule(s) PO QHS 0702/201804/08/2018 Inactive ropinirole 2 mg tablet RxNorm: 024623 1 Tablet(s) PO QHS 03/28/2018 0 04/08/2018 Inactive gabapentin 300 mg capsule RxNorm: 906648 1-2 Capsule(s) PO QHS 02/2303/29/2018 Inactive gabapentin 300 mg capsule RxNorm: 757871 1-2 Capsule(s) PO QHS 02/2203/13/2018 Inactive gabapentin 300 mg capsule RxNorm: 968999 2 Capsule(s) PO QHS 201703/11/2018 Inactive ropinirole 2 mg tablet RxNorm: 969882 1 Tablet(s) PO QHS 02/28/2018 0 03/28/2018 Inactive ropinirole 2 mg tablet RxNorm: 723387 1 Tablet(s) PO QHS 02/28/2018 0 02/27/2018 Inactive gabapentin 300 mg capsule RxNorm: 689081 1 Capsule(s) PO QHS 201702/27/2018 Inactive pantoprazole 40 mg tablet,delayed release RxNorm: 546429 1 Tablet(s) PO QD forstomach 01/23/2018 05/22/2018 Inactive Voltaren 1 % topical gel RxNorm: 411008 1 Gram(s) TOP QID to ri ght knee 01/23/2018 02/04/2018 Inactive metformin ER 500 mg tablet,extended release 24hr RxNorm: 860 975 2 Tablet(s) PO BID 01/09/2018 12/08/2018 Inactive Requip 1 mg tablet RxNorm: 540268 1 Tablet(s) PO QHS 01/09/201802/27 Inactive prednisone 20 mg tablet RxNorm: 440914 1 Tablet(s) PO T ID for 3 days then 1 po BID for 3 days then one daily for 3 days 01/02/2018 02/03/2018 Inactiv e Levaquin 500 mg tablet RxNorm: 526974 1 Tablet(s) PO QD 01/02/2018 Inactive ProAir HFA 90 mcg/actuation aerosol inhaler RxNorm: 501828 2 Puff(s) INH Q4H as needed 12/28/2017 No Stop Date Active please switch to ventolin if insurance doesn't cover montelukast 10 mg tablet RxNorm: 326589 1 Tablet(s) PO QD 12/28/2017 02/03/2018 Inactive Levaquin 500 mg tablet RxNorm: 149694 1 Tablet(s) PO QD 12/21/2017 Inactive ProAir HFA 90 mcg/actuation aerosol inhaler RxNorm: 348530 2 Puff(s) INH Q4H as needed 12/21/2017 12/27/2017 Inactive please switch to ventolin if insurance doesn't cover doxycycline hyclate 100 mg tablet RxNorm: 564782 1 Tablet(s) PO BID 12/17/2017 12/26/2017 Inactive Levemir FlexTouch U-100 Insulin 100 unit/mL (3 mL) sub cutaneous pen RxNorm: 834573 20 Unit(s) SQ QD with pen needles---Due for labs 12/11/2017 02/03/2018 Inactive Requip 1 mg tablet RxNorm: 068715 1 Tablet(s) PO QHS 12/10/201712/09 Inactive Requip 1 mg tablet RxNorm: 184754 1 Tablet(s) PO QHS 12/10/201701/09 Inactive albuterol sulfate 2.5 mg/3 mL (0.083 %) solution for n ebulization RxNorm: 779162 Milliliter(s) INH USE 1 VIAL IN NEBULIZE R EVERY FOUR HOURS NEEDED FOR WHEEZING OR SHORTNESS OF BREATH 12/05/2017 06/13/2018 Inactive Generic For:*PROVENTIL 0.83 MG/ML SOLUTN 06/13/2013 2:04:46 PM Tudorza Pressair 400 mcg/actuation breath activated RxNorm: 5573878 1 Puff(s) INH BID 12/03/2017 12/10/2017 Inactive Levemir FlexTouch U-100 Insulin 100 unit/mL (3 mL) sub cutaneous pen RxNorm: 106529 10 Unit(s) SQ QD with pen needles---Due for labs 11/16/2017 12/10/2017 Inactive Zofran ODT 4 mg disintegrating tablet RxNorm: 489698 1 Tablet(s) PO Q4H as needed for nausea 10/17/2017 02/04/2018 Inactive Efudex 5 % topical cream RxNorm: 566923 Application TOP QD prn to precancer skin lesions 10/17/2017 02/03/2018 Inactive Sinemet CR 50 mg-200 mg tablet,extended release RxNorm: 8343 41 1 Tablet(s) PO BID 10/17/2017 02/05/2018 Inactive Sinemet CR 50 mg-200 mg tablet,extended release RxNorm: 8343 41 1 Tablet(s) PO QHS 09/25/2017 10/16/2017 Inactive gabapentin 600 mg tablet RxNorm: 454289 1 Tablet(s) PO BID 08/15/20 17 08/14/2017 Inactive gabapentin 600 mg tablet RxNorm: 980772 1 Tablet(s) PO BID 08/15/20 17 12/10/2017 Inactive Novolog U-100 Insulin aspart 100 unit/mL subcutaneous soluti on RxNorm: 180791 10 Unit(s) SQ AC 08/15/2017 02/03/2018 Inactive Novolog 100 unit/mL subcutaneous solution RxNorm: 816115 10 Uni t(s) SQ AC 08/13/2017 08/14/2017 Inactive prednisone 20 mg tablet RxNorm: 638164 2 Tablet(s) PO QD 08/02/2017 1 10/04/2016 Inactive gabapentin 600 mg tablet RxNorm: 791858 Tablet(s) 1 Tab let(s) PO QHS replaces 300mg dose 07/09/2017 08/14/2017 Inactive Breo Ellipta 100 mcg-25 mcg/dose powder for inhalation RxNor m: 2414291 1 Unit Dose INH QD 07/02/2017 08/30/2017 Inactive Tudorza Pressair 400 mcg/actuation breath activated RxNorm: 7003649 1 Puff(s) INH BID 06/18/2017 12/02/2017 Inactive gabapentin 600 mg tablet RxNorm: 492385 1 Tablet(s) PO QHS repl aces 300mg dose 06/14/2017 07/08/2017 Inactive metformin ER 1,000 mg tablet,extended release 24hr RxNorm: 1 467236 1 Tablet(s) PO BID 05/29/2017 01/08/2018 Inactive cyclobenzaprine 5 mg tablet RxNorm: 748353 1 Tablet(s) PO TID 05/2906/07/2017 Inactive metformin ER 1,000 mg tablet,extended release 24hr RxNorm: 8 43065 1 Tablet(s) PO BID 05/25/2017 05/28/2017 Inactive metformin ER 1,000 mg tablet,extended release 24hr RxNorm: 8 43049 1 Tablet(s) PO BID 05/22/2017 05/24/2017 Inactive Amaryl 2 mg tablet RxNorm: 402415 1 Tablet(s) PO BID 05/01/201702/03 Inactive glimepiride 2 mg tablet RxNorm: 213396 1 Tablet(s) PO BID 04/19/2017 02/03/2018 Inactive ferrous sulfate 325 mg (65 mg iron) tablet RxNorm: 151214 1 Tab let(s) PO QHS 04/17/2017 02/03/2018 Inactive Requip 4 mg tablet RxNorm: 678926 1 Tablet(s) PO BID 04/12/201704/11 Inactive Requip 4 mg tablet RxNorm: 131760 1 Tablet(s) PO BID 04/12/201704/15 Inactive Levemir FlexTouch 100 unit/mL (3 mL) subcutaneous insulin pe n RxNorm: 634547 10 Unit(s) SQ QD with pen needles---Due for labs 04/05/2017 11/15/2017 In active Silenor 3 mg tablet RxNorm: 436724 1 Tablet(s) PO QHS 04/05/201709/25 Inactive ropinirole 4 mg tablet RxNorm: 300665 1 Tablet(s) PO QHS 03/29/2017 0 04/01/2017 Inactive ropinirole 4 mg tablet RxNorm: 419315 1 Tablet(s) PO QHS 03/29/2017 0 03/28/2017 Inactive Requip 4 mg tablet RxNorm: 650268 1 Tablet(s) PO QHS 03/28/201704/01 Inactive gabapentin 600 mg tablet RxNorm: 957625 1 Tablet(s) PO QHS repl aces 300mg dose 03/28/2017 04/15/2017 Inactive Requip 4 mg tablet RxNorm: 321166 1 Tablet(s) PO QHS 03/23/201703/27 Inactive gabapentin 600 mg tablet RxNorm: 029703 1 Tablet(s) PO QHS 03/13/20 17 03/12/2017 Inactive gabapentin 600 mg tablet RxNorm: 579455 1 Tablet(s) PO QHS 03/13/20 17 03/27/2017 Inactive gabapentin 300 mg capsule RxNorm: 982757 1 Capsule(s) PO QPM 201603/12/2017 Inactive Generic For:NEURONTIN 300 MG CAPSULE 01/22/2017 10:10:39 AM losartan 100 mg tablet RxNorm: 648513 1 Tablet(s) PO QD replace s lisinopril 02/21/2017 06/17/2018 Inactive gabapentin 300 mg capsule RxNorm: 296550 TAKE 1 CAPSULE BY MOUT H EVERY EVENING 01/22/2017 02/21/2017 Inactive Generic For:NEURONTI N 300 MG CAPSULE 01/22/2017 10:10:39 AM gabapentin 300 mg capsule RxNorm: 911751 1 Capsule(s) PO QPM 201601/21/2017 Inactive Requip 4 mg tablet RxNorm: 818066 1 Tablet(s) PO QHS 12/21/201603/20 Inactive Effient 10 mg tablet RxNorm: 593218 1 Tablet(s) PO QD 12/12/201612/23 Inactive gabapentin 300 mg capsule RxNorm: 683478 1 Capsule(s) PO QPM 201612/03/2016 Inactive gabapentin 300 mg capsule RxNorm: 526668 1 Capsule(s) PO QPM 201612/13/2016 Inactive Requip 4 mg tablet RxNorm: 921058 1 Tablet(s) PO QHS 11/28/201612/21 Inactive atorvastatin 40 mg tablet RxNorm: 902436 Tablet(s) 1 Tablet(s) PO Q D 11/22/2016 08/18/2017 Inactive atorvastatin 40 mg tablet RxNorm: 539046 1 Tablet(s) PO QD 11/23/19 17 11/21/2016 Inactive ropinirole 1 mg tablet RxNorm: 623782 2.5 Tablet(s) PO QPM for legs/sleep 11/14/2016 11/27/2016 Inactive nystatin 100,000 unit/mL oral suspension RxNorm: 718252 5 Unit(s) PO QID swish and spit 10/31/2016 02/03/2018 Inactive fluconazole 100 mg tablet RxNorm: 684693 1 Tablet(s) PO QD 10/31/19 17 11/09/2016 Inactive doxycycline hyclate 100 mg capsule RxNorm: 5399461 1 Capsule(s) PO BID 10/03/2016 10/12/2016 Inactive Levemir FlexTouch 100 unit/mL (3 mL) subcutaneous insulin pe n RxNorm: 964655 10 Unit(s) SQ QD with pen needles 09/18/2016 04/04/2017 Inactive amitriptyline 25 mg tablet RxNorm: 131884 1 Tablet(s) P O QHS as needed for sleep 09/04/2016 10/17/2016 Inactive ropinirole 1 mg tablet RxNorm: 908365 1.5 Tablet(s) PO QPM for legs/sleep 09/04/2016 11/13/2016 Inactive amitriptyline 25 mg tablet RxNorm: 856716 1 Tablet(s) P O QHS as needed for sleep 08/22/2016 09/03/2016 Inactive clopidogrel 75 mg tablet RxNorm: 693560 1 Tablet(s) PO QD 08/10/2016 10/17/2016 Inactive Zoloft 100 mg tablet RxNorm: 896571 2 Tablet(s) PO QHS 08/10/2016 Inactive atorvastatin 40 mg tablet RxNorm: 228618 1 Tablet(s) PO QD 08/10/2010/17/2016 Inactive ropinirole 1 mg tablet RxNorm: 887211 1 Tablet(s) PO QPM for le gs/sleep 08/10/2016 09/03/2016 Inactive losartan 100 mg tablet RxNorm: 086088 1 Tablet(s) PO QD replace s lisinopril 07/20/2016 02/21/2017 Inactive Zofran 4 mg tablet RxNorm: 640233 1 Tablet(s) PO Q4H as needed for nausea 07/06/2016 10/17/2016 Inactive Flagyl 500 mg tablet RxNorm: 211277 1 Tablet(s) PO TID 07/06/2016 Inactive Plavix 75 mg tablet RxNorm: 029252 1 Tablet(s) PO QD 06/08/201607/05 Inactive isosorbide mononitrate ER 30 mg tablet,extended release 24 h r RxNorm: 548779 1 Tablet(s) PO QAM 06/08/2016 08/09/2016 Inactive atorvastatin 40 mg tablet RxNorm: 033921 1 Tablet(s) PO QD 06/08/20 16 08/09/2016 Inactive hydrochlorothiazide 12.5 mg tablet RxNorm: 070783 1 Tablet(s) PO QA M 06/08/2016 07/05/2016 Inactive metformin ER 1,000 mg tablet,extended release 24hr RxNorm: 8 69722 1 Tablet(s) PO BID 06/08/2016 09/05/2016 Inactive metoprolol tartrate 25 mg tablet RxNorm: 876966 1/2 Tablet(s) PO BI D 06/08/2016 08/09/2016 Inactive Zoloft 100 mg tablet RxNorm: 244914 2 Tablet(s) PO QHS 04/03/2016 Inactive metformin ER 1,000 mg tablet,extended release 24hr RxNorm: 8 03269 Tablet(s) 1 Tablet(s) PO QD 03/30/2016 12/18/2018 Inactive Levemir FlexTouch 100 unit/mL (3 mL) subcutaneous insulin pe n RxNorm: 503339 10 Unit(s) SQ QD 03/09/2016 03/08/2016 Inactive Levemir FlexTouch 100 unit/mL (3 mL) subcutaneous insulin pe n RxNorm: 436843 10 Unit(s) SQ QD with pen needles 03/09/2016 03/20/2016 Inactive Mobic 15 mg tablet RxNorm: 953025 1 Tablet(s) PO QD for foot pain 0 02/17/2016 03/17/2016 Inactive Zoloft 100 mg tablet RxNorm: 713777 1 1/2 Tablet(s) PO QHS 01/31/20 16 04/02/2016 Inactive omeprazole 20 mg capsule,delayed release RxNorm: 154955 TAKE 2 CAPSULES BY MOUTH EVERY DAY 01/12/2016 08/09/2016 Inactive Generic For:*CHERYL LOSEC [address] 01/12/2016 8:58:34 AM Zoloft 100 mg tablet RxNorm: 621435 1/2 Tablet(s) PO QH S for 1 week then 1 tablet po q HS 12/30/2015 01/27/2016 Inactive Ventolin HFA 90 mcg/actuation aerosol inhaler RxNorm: 588788 2 Puff(s) INH QID as needed for shortness of breath 12/30/2015 02/03/2018 Inactive [AttnRPh: Saving apply/adjudicate RxGRP:SG20 RxBIN:[id number] RxPCN: ID#:[id number]] metformin ER 1,000 mg tablet,extended release 24hr RxNorm: 8 81607 1 Tablet(s) PO QD 12/20/2015 03/18/2016 Inactive clindamycin 300 mg capsule RxNorm: 266045 1 Capsule(s) PO TID 12/0512/15/2015 Inactive mupirocin 2 % topical cream RxNorm: 037984 TOP to facial lesion s twice daily 11/15/2015 12/15/2015 Inactive cefdinir 300 mg capsule RxNorm: 632678 1 Capsule(s) PO BID 11/15/19 16 11/24/2015 Inactive Medrol (Gui) 4 mg tablets in a dose pack RxNorm: 781597 Tablet(s) PO as directed 10/11/2015 12/15/2015 Inactive albuterol sulfate 2.5 mg/3 mL (0.083 %) solution for n ebulization RxNorm: 597176 INH USE 1 VIAL IN NEBULIZER EVERY FOUR H OURS NEEDED FOR WHEEZING OR SHORTNESS OF BREATH 10/05/2015 10/04/2015 Inactive Generic For:*PRO VENTIL 0.83 MG/ML SOLUTN 06/13/2013 2:04:46 PM doxycycline hyclate 100 mg capsule RxNorm: 1208310 1 Capsule(s) PO BID 10/05/2015 10/14/2015 Inactive albuterol sulfate 2.5 mg/3 mL (0.083 %) solution for n ebulization RxNorm: 017268 Milliliter(s) INH USE 1 VIAL IN NEBULIZE R EVERY FOUR HOURS NEEDED FOR WHEEZING OR SHORTNESS OF BREATH Dx: J44.9 10/05/2015 12/05/2017 Inacti ve Generic For:*PROVENTIL 0.83 MG/ML SOLUTN 06/13/2013 2:04:46 PM albuterol sulfate 2.5 mg/3 mL (0.083 %) solution for n ebulization RxNorm: 251748 3 Milliliter(s) INH USE 1 VIAL IN NEBULI ZER EVERY FOUR HOURS NEEDED FOR WHEEZING OR SHORTNESS OF BREATH 09/06/2015 10/04/2015 Inactive Generic For:*PROVENTIL 0.83 MG/ML SOLUTN 06/13/2013 2:04:46 PM Tradjenta 5 mg tablet RxNorm: 1974060 2 Tablet(s) PO QD 07/22/2015 Inactive albuterol sulfate 2.5 mg/3 mL (0.083 %) solution for n ebulization RxNorm: 762543 3 Milliliter(s) INH USE 1 VIAL IN NEBULI ZER EVERY FOUR HOURS NEEDED FOR WHEEZING OR SHORTNESS OF BREATH 06/29/2015 09/05/2015 Inactive Generic For:*PROVENTIL 0.83 MG/ML SOLUTN 06/13/2013 2:04:46 PM albuterol sulfate 2.5 mg/3 mL (0.083 %) solution for n ebulization RxNorm: 503269 Milliliter(s) INH USE 1 VIAL IN NEBULIZE R EVERY FOUR HOURS NEEDED FOR WHEEZING OR SHORTNESS OF BREATH 06/29/2015 12/04/2017 Inactive Generic For:*PROVENTIL 0.83 MG/ML SOLUTN 06/13/2013 2:04:46 PM doxycycline hyclate 100 mg tablet RxNorm: 227736 1 Tablet(s) PO BID 06/28/2015 07/07/2015 Inactive losartan 100 mg tablet RxNorm: 364424 1 Tablet(s) PO QD -replac es lisinopril 06/14/2015 09/05/2015 Inactive metformin ER 1,000 mg tablet,extended release 24hr RxNorm: 8 57026 1 Tablet(s) PO QD 06/14/2015 09/11/2015 Inactive losartan 100 mg tablet RxNorm: 250717 1 Tablet(s) PO QD -replac es lisinopril 06/14/2015 12/10/2015 Inactive Zocor 20 mg tablet RxNorm: 968646 Tablet(s) Tablet(s) 1 Tablet(s) PO QD -needs lipids labs 06/14/2015 06/14/2015 Inactive atorvastatin 40 mg tablet RxNorm: 851019 1 Tablet(s) PO QD repl aces simvastatin 06/14/2015 12/10/2015 Inactive loratadine 10 mg tablet RxNorm: 927677 Tablet(s) 1 Tablet(s) PO QD for drainage 06/14/2015 06/07/2016 Inactive Celexa 40 mg tablet RxNorm: 165225 1 Tablet(s) PO QD TA KE ONE (1) TABLET BY MOUTH DAILY 06/14/2015 12/29/2015 Inactive Generic For:HARJINDER XA 40 MG TABLET clindamycin 300 mg capsule RxNorm: 737456 2 Capsule(s) PO BID 06/0306/12/2015 Inactive metformin ER 1,000 mg tablet,extended release 24hr RxNorm: 8 79816 1 Tablet(s) PO QD 06/03/2015 06/02/2015 Inactive metformin ER 1,000 mg tablet,extended release 24hr RxNorm: 8 41854 1 Tablet(s) PO QD 06/03/2015 06/13/2015 Inactive mupirocin 2 % topical ointment RxNorm: 508484 TOP apply to open lesion of knee twice daily 06/03/2015 01/30/2016 Inactive Zocor 20 mg tablet RxNorm: 226117 Tablet(s) 1 Tablet(s ) PO QD -needs lipids labs 05/13/2015 06/13/2015 Inactive Celexa 40 mg tablet RxNorm: 257816 1 Tablet(s) PO QD TA KE ONE (1) TABLET BY MOUTH DAILY 05/13/2015 06/13/2015 Inactive Generic For:HARJINDER XA 40 MG TABLET Zocor 20 mg tablet RxNorm: 124881 Tablet(s) 1 Tablet(s ) PO QD -needs lipids labs 02/23/2015 03/24/2015 Inactive loratadine 10 mg tablet RxNorm: 653475 1 Tablet(s) PO QD for dr saenz 12/24/2014 06/13/2015 Inactive Zocor 20 mg tablet RxNorm: 341683 1 Tablet(s) PO QD -needs lipi ds labs 11/17/2014 02/23/2015 Inactive Celexa 40 mg tablet RxNorm: 923874 1 Tablet(s) PO QD 1 Tablet(s) PO QD 1 Tablet(s) PO QD Generic OKAY 11/11/2014 05/13/2015 Inactive Zocor 20 mg tablet RxNorm: 612034 1 Tablet(s) PO QD -needs lipi ds labs 11/11/2014 11/16/2014 Inactive omeprazole 20 mg capsule,delayed release RxNorm: 810376 2 Capsule(s) PO QD TAKE 2 CAPSULES BY MOUTH DAILY 10/27/2014 04/24/2015 Inactive Shena harp For:*PRILOSEC 20 MG CAPSULE trazodone 50 mg tablet RxNorm: 094282 1 1/2 Tablet(s) PO QHS 201412/29/2015 Inactive losartan 100 mg tablet RxNorm: 895601 1 Tablet(s) PO QD -replac es lisinopril 10/26/2014 04/23/2015 Inactive Levaquin 500 mg tablet RxNorm: 411607 1 Tablet(s) PO QD 10/08/2014 Inactive Levaquin 500 mg tablet RxNorm: 063848 1 Tablet(s) PO QD 10/08/2014 Inactive Diflucan 100 mg tablet RxNorm: 733989 1 Tablet(s) PO QD 10/06/2014 Inactive DuoNeb 0.5 mg-3 mg(2.5 mg base)/3 mL solution for nebulizati on RxNorm: 6736113 3 Milliliter(s) INH QID 09/23/2014 08/09/2016 Inactive Ventolin HFA 90 mcg/actuation aerosol inhaler RxNorm: 047610 2 Puff(s) INH QID as needed for shortness of breath 09/21/2014 12/29/2015 Inactive [AttnRPh: Saving apply/adjudicate RxGRP:SG20 RxBIN:[id number] RxPCN: ID#:[id number]] promethazine-codeine 6.25 mg-10 mg/5 mL syrup RxNorm: 106092 1 Teaspoon(s) PO QHS as needed for cough 09/08/2014 09/20/2014 Inactive prednisone 20 mg tablet RxNorm: 761054 1 Tablet(s) PO BID 09/02/2014 09/08/2014 Inactive promethazine-codeine 6.25 mg-10 mg/5 mL syrup RxNorm: 792279 1 Teaspoon(s) PO Q4H 09/02/2014 09/20/2014 Inactive doxycycline monohydrate 100 mg capsule RxNorm: 574339 1 Capsule (s) PO BID 09/02/2014 09/07/2014 Inactive Tessalon Perles 100 mg capsule RxNorm: 687770 1 Capsule (s) PO TID as needed for cough 08/31/2014 09/20/2014 Inactive Actos 15 mg tablet RxNorm: 677978 1 Tablet(s) PO QAM 1 Tablet(s ) PO QAM 08/26/2014 09/20/2014 Inactive loratadine 10 mg tablet RxNorm: 641191 1 Tablet(s) PO QD for dr saenz 08/26/2014 10/26/2014 Inactive Zithromax 500 mg tablet RxNorm: 194627 1 Tablet(s) PO QD 08/25/2014 1 11/01/2013 Inactive Zithromax 500 mg tablet RxNorm: 670705 1 Tablet(s) PO QD 08/25/2014 1 10/25/2013 Inactive Trazadone 75mg Tablet RxNorm: 1 Tablet(s) PO QHS 08/10/20142018 Inactive Zocor 20 mg tablet RxNorm: 734399 1 Tablet(s) PO QD 08/10/20142014 Inactive Trazadone 75mg Tablet RxNorm: 1 Tablet(s) PO QHS as need ed for sleep 08/10/2014 10/08/2014 Inactive Celexa 40 mg tablet RxNorm: 374027 1 Tablet(s) PO QD 1 Tablet(s) PO QD 1 Tablet(s) PO QD Generic OKAY 06/09/2014 10/06/2014 Inactive Actos 15 mg tablet RxNorm: 963791 1 Tablet(s) PO QAM 05/12/201408/26 Inactive lisinopril 20 mg tablet RxNorm: 087275 1 Tablet(s) PO QD 05/12/2014 0 10/26/2014 Inactive TAKE ONE TABLET BY MOUTH EVERY DAY;Gener ic For:*PRINIVIL 20 MG TABLET [AttnRPh: Saving apply/adjudicate RxGRP:SG20 RxBIN:[id number] RxPCN: ID#:[id number]] hydrocodone 5 mg-acetaminophen 325 mg tablet RxNorm: 513489 1 Tablet(s) PO TID as needed for pain for severe pain 04/30/2014 08/09/2014 Inactive hydrocodone 5 mg-acetaminophen 325 mg tablet RxNorm: 580437 1 Tablet(s) PO TID as needed for pain for severe pain 04/17/2014 04/29/2014 Inactive doxycycline hyclate 100 mg capsule RxNorm: 554682 1 Capsule(s) PO BID 03/05/2014 03/04/2014 Inactive doxycycline hyclate 100 mg capsule RxNorm: 060847 1 Capsule(s) PO BID 03/05/2014 03/14/2014 Inactive albuterol sulfate 2.5 mg/3 mL (0.083 %) solution for n ebulization RxNorm: 937564 Milliliter(s) INH USE 1 VIAL IN NEBULIZE R EVERY FOUR HOURS NEEDED FOR WHEEZING OR SHORTNESS OF BREATH 03/02/2014 06/29/2015 Inactive Generic For:*PROVENTIL 0.83 MG/ML SOLUTN 06/13/2013 2:04:46 PM Celexa 40 mg tablet RxNorm: 745433 1 Tablet(s) PO QD 1 Tablet(s) PO QD replaces lexapro. Generic OKAY 01/13/2014 06/09/2014 Inactive Actos 15 mg tablet RxNorm: 486058 1 Tablet(s) PO QAM 01/07/201405/12 Inactive lisinopril 20 mg tablet RxNorm: 273572 1 Tablet(s) PO QD 12/08/2013 0 05/12/2014 Inactive TAKE ONE TABLET BY MOUTH EVERY DAY;Gener ic For:*PRINIVIL 20 MG TABLET cefdinir 300 mg capsule RxNorm: 581336 2 Capsule(s) PO QD 11/10/2013 08/09/2014 Inactive cefdinir 300 mg capsule RxNorm: 514262 2 Capsule(s) PO QD 10/09/2013 10/15/2013 Inactive Actos 15 mg tablet RxNorm: 450985 1 Tablet(s) PO QAM 10/09/201301/06 Inactive doxycycline hyclate 100 mg capsule RxNorm: 1463362 1 Capsule(s) PO Q12H 09/18/2013 09/27/2013 Inactive omeprazole 20 mg capsule,delayed release RxNorm: 752478 2 Capsule(s) PO QD TAKE 2 CAPSULES BY MOUTH DAILY 09/03/2013 03/01/2014 Inactive Generi c For:*PRILOSEC [address] Celexa 40 mg tablet RxNorm: 659916 1 Tablet(s) PO QD re places lexapro. Generic OKAY 09/03/2013 01/13/2014 Inactive Symbicort 160 mcg-4.5 mcg/actuation HFA aerosol inhaler RxNo rm: 3682617 2 Puff(s) INH BID 08/13/2013 03/23/2014 Inactive metformin 1,000 mg tablet RxNorm: 806260 1 Tablet(s) PO BID 013 08/12/2013 Inactive TAKE ONE TABLET BY MOUTH TWI CE DAILY;Generic For:GLUCOPHAGE 1,000 MG TABLET 08/27/12 Thank you Actos 15 mg tablet RxNorm: 704703 1 Tablet(s) PO QAM 06/23/201310/09 Inactive lisinopril 20 mg tablet RxNorm: 568247 1 Tablet(s) PO QD 06/23/2013 0 12/08/2013 Inactive TAKE ONE TABLET BY MOUTH EVERY DAY;Gener ic For:*PRINIVIL 20 MG TABLET albuterol sulfate 2.5 mg/3 mL (0.083 %) solution for n ebulization RxNorm: 407706 Solution for Nebulization INH USE 1 VIAL IN NEBULIZER EVERY FOUR HOURS NEEDED FOR WHEEZING OR SHORTNESS OF BREATH 06/16/2013 03/01/2014 Inactive Generic For:*PROVENTIL 0.83 MG/ML SOLUTN 06/13/2013 2:04:46 PM prednisone 10 mg tablet RxNorm: 495951 1 Tablet(s) PO BID 04/09/2013 04/13/2013 Inactive AndroGel 1.25 gram/actuation (1%) Transdermal Gel Pump RxNorm: 2 57720 TD 04/09/2013 08/09/2014 Inactive APPLY 4 PUMPS OF GEL AT BEDTIME DIRECTED; (Appended: Controlled substance eRx refill - RxReferenceNumber: [id number]) azithromycin 250 mg tablet RxNorm: 954794 2 Tablet(s) PO QD 013 04/16/2013 Inactive Amaryl 2 mg tablet RxNorm: 339365 1 Tablet(s) PO BID N eeds appt in 1 month (around March 21) 02/18/2013 08/12/2013 Inactive Amaryl 2 mg tablet RxNorm: 022976 1 Tablet(s) PO BID 02/18/201302/17 Inactive metformin 1,000 mg tablet RxNorm: 309108 1 Tablet(s) PO BID 013 07/27/2013 Inactive TAKE ONE TABLET BY MOUTH TWI CE DAILY;Generic For:GLUCOPHAGE 1,000 MG TABLET 08/27/12 Thank you Actos 15 mg tablet RxNorm: 012875 1 Tablet(s) PO QAM 02/04/201306/03 Inactive albuterol sulfate 2.5 mg/3 mL (0.083 %) Neb Solution RxNorm: 112357 1 Unit Dose INH Q4H prn wheezing or shortness of breath 01/30/2013 06/15/2013 Inac tive Medrol (Gui) 4 mg tablets in a dose pack RxNorm: 276982 Tablet(s) PO as directed 01/20/2013 07/15/2013 Inactive cefdinir 300 mg capsule RxNorm: 482382 1 Capsule(s) PO BID anti biotic 01/20/2013 01/29/2013 Inactive lisinopril 20 mg tablet RxNorm: 469175 Tablet(s) PO 01/13/20132012 Inactive TAKE ONE TABLET BY MOUTH EVERY DAY;Gener ic For:*PRINIVIL 20 MG TABLET citalopram 40 mg tablet RxNorm: 823758 Tablet(s) PO 01/13/20132013 Inactive TAKE ONE (1) TABLET BY MOUTH DAILY;Gener ic For:CELEXA 40 MG TABLET omeprazole 20 mg capsule,delayed release RxNorm: 181798 Capsule(s) PO TAKE 2 CAPSULES BY MOUTH DAILY 11/15/2012 09/03/2013 Inactive Generic For:*PRILOSEC [address] amoxicillin 875 mg tablet RxNorm: 339279 1 Tablet(s) PO BID 013 10/28/2012 Inactive Actos 30 mg tablet RxNorm: 066318 1 Tablet(s) PO QD 09/23/20122011 Inactive Actos 15 mg tablet RxNorm: 980721 1 Tablet(s) PO QAM 09/23/201209/22 Inactive Actos 15 mg tablet RxNorm: 466083 1 Tablet(s) PO QAM 09/23/201202/04 Inactive prednisone 20 mg tablet RxNorm: 817623 1 Tablet(s) PO BID 08/28/2012 09/03/2012 Inactive doxycycline hyclate 100 mg tablet RxNorm: 3377906 1 Tablet(s) PO BI D 08/28/2012 09/06/2012 Inactive metformin 1,000 mg tablet RxNorm: 321164 Tablet(s) PO 08/27/201201/22 Inactive TAKE ONE TABLET BY MOUTH TWICE DAILY;Gen lewis For:GLUCOPHAGE 1,000 MG TABLET 08/27/12 Thank you citalopram 40 mg tablet RxNorm: 067850 Tablet(s) PO 07/30/20122012 Inactive TAKE ONE (1) TABLET BY MOUTH DAILY;Gener ic For:CELEXA 40 MG TABLET lisinopril 20 mg tablet RxNorm: 671636 Tablet(s) PO 07/30/20122012 Inactive TAKE ONE TABLET BY MOUTH EVERY DAY;Gener ic For:*PRINIVIL 20 MG TABLET AndroGel 1.25 gram/actuation (1%) Transdermal Gel Pump RxNor m: [id number] Gel in Metered-Dose Pump TD 07/09/2012 04/08/2013 Inactive APPLY 4 PUM PS OF GEL AT BEDTIME DIRECTED;WC (Appended: Controlled substance eRx refill - RxReferenceNumber: [id number]) citalopram 40 mg tablet RxNorm: 718980 Tablet(s) PO 07/01/20122011 Inactive TAKE ONE (1) TABLET BY MOUTH DAILY;Gener ic For:CELEXA 40 MG TABLET metformin 1,000 mg tablet RxNorm: 428460 1 Tablet(s) PO BID 012 08/25/2012 Inactive TAKE 1 TABLET BY MOUTH TWICE DAILY;Generic For:GLUCOPHAGE 1,000 MG TABLET meclizine 25 mg Tab RxNorm: 593130 1 Tablet(s) PO QID prn dizziness 05/09/2012 05/18/2012 Inactive lisinopril 20 mg tablet RxNorm: 159674 Tablet(s) PO QD 04/22/2012 Inactive TAKE ONE (1) TABLET BY MOUTH DAILY;Gener ic For:*PRINIVIL 20 MG TABLET metformin 1,000 mg tablet RxNorm: 040403 Tablet(s) PO 03/19/201212/2011 Inactive TAKE 1 TABLET BY MOUTH TWICE DAILY;Gener ic For:GLUCOPHAGE 1,000 MG TABLET cefdinir 300 mg Cap RxNorm: 446344 1 Capsule(s) PO BID 11/28/2011 Inactive cefdinir 300 mg Cap RxNorm: 859482 1 Capsule(s) PO BID 11/01/2011 Inactive citalopram 40 mg tablet RxNorm: 010318 Tablet(s) PO 10/30/20112011 Inactive TAKE ONE (1) TABLET BY MOUTH DAILY;Gener ic For:CELEXA 40 MG TABLET cefdinir 300 mg Cap RxNorm: 635277 1 Capsule(s) PO BID 10/02/2011 Inactive metformin 1,000 mg Tab RxNorm: 116816 1 Tablet(s) PO BID 09/28/2011 0 01/25/2012 Inactive citalopram 40 mg Tab RxNorm: 325227 1 Tablet(s) PO QD 09/28/201111/2011 Inactive omeprazole 20 mg capsule,delayed release RxNorm: 556086 2 Capsu le(s) PO QD 09/28/2011 03/25/2012 Inactive lisinopril 20 mg Tab RxNorm: 167065 Tablet(s) PO 08/21/2011 04/21/2012 Inactive TAKE ONE (1) TABLET BY MOUTH DAILY;Generic For:*PRINIVIL 20 MG TABLET AndroGel 1.25 gram/actuation (1%) Transdermal Gel Pump RxNor m: [id number] Gel in Metered-dose Pump TD 08/21/2011 07/09/2012 Inactive APPLY 4 PUM PS OF GEL AT BEDTIME DIRECTED (Appended: Controlled substance eRx refill - RxReferenceNumber: [id number]) Lantus Solostar 100 unit/mL (3 mL) Sub-Q Insulin Pen RxNorm: 474819 30 Unit(s) SQ QD 06/20/2011 05/08/2012 Inactive Lantus Solostar 100 unit/mL (3 mL) Sub-Q Insulin Pen RxNorm: 704705 30 Unit(s) SQ QD 06/19/2011 06/19/2011 Inactive metformin 1,000 mg Tab RxNorm: 406278 1 Tablet(s) PO BID 05/12/2011 1 11/09/2010 Inactive citalopram 40 mg Tab RxNorm: 577946 1 Tablet(s) PO QD 03/06/201105/2011 Inactive metformin 1,000 mg Tab RxNorm: 328833 1 Tablet(s) PO BID 12/27/2010 0 04/25/2011 Inactive lisinopril 20 mg Tab RxNorm: 508026 Tablet(s) PO TAKE 1 TABLET BY MOUTH EVERY DAY;Generic For:*PRINIVIL 20 MG TABLET 12/26/2010 08/20/2011 Inactive Ceftin 500 mg Tab RxNorm: 951351 1 Tablet(s) PO BID 12/19/20102010 Inactive omeprazole 20 mg Cap, Delayed Release RxNorm: 433167 2 Capsule( s) PO QD 09/13/2010 03/11/2011 Inactive Byetta 10 mcg/0.04 mL per dose Sub-Q Pen Injector RxNorm: 84 7913 1 Unit Dose SQ BID 09/07/2010 10/06/2010 Inactive Celexa 40 mg tablet RxNorm: 422876 1 Tablet(s) PO QD re places lexapro. Generic OKAY 08/09/2010 02/04/2011 Inactive Actos 30 mg Tab RxNorm: 635135 1 Tablet(s) PO QD 08/09/2010 04/02/2011 Inactive lisinopril 20 mg Tab RxNorm: 719775 1 Tablet(s) PO QD 08/09/201011/22 Inactive metformin 1,000 mg Tab RxNorm: 202550 1 Tablet(s) PO BID 08/09/2010 0 12/06/2010 Inactive Metformin 1,000 mg Tab RxNorm: 468269 1 Tablet(s) PO BID 04/26/2010 0 04/25/2010 Inactive metformin 1,000 mg Tab RxNorm: 622930 1 Tablet(s) PO BID 04/26/2010 1 Inactive Lomotil 2.5 mg-0.025 mg Tab RxNorm: 3505645 1 Tablet(s) PO TID 1-2 TABS THREE TIMES DAILY 04/05/2010 04/07/2010 Inactive Mupirocin 2 % Topical Cream RxNorm: 559506 TOP BID 04/05/201003/25 Inactive lisinopril 20 mg Tab RxNorm: 187333 1 Tablet(s) PO QD 03/29/201010/2009 Inactive Actos 30 mg Tab RxNorm: 374338 1 Tablet(s) PO QD 03/29/2010 07/26/2010 Inactive Lisinopril 20 mg Tab RxNorm: 883979 1 Tablet(s) PO QD 02/27/201001/2010 Inactive Actos 30 mg Tab RxNorm: 092254 1 Tablet(s) PO QD 02/14/2010 03/28/2010 Inactive Celexa 40 mg Tab RxNorm: 595246 1 Tablet(s) PO QD replaces lexapro 01/13/2010 07/11/2010 Inactive Cyclobenzaprine 10 mg Tab RxNorm: 978984 1 Tablet(s) PO TID prn spasm 12/23/2009 01/21/2010 Inactive Cyclobenzaprine 10 mg Tab RxNorm: 970413 1 Tablet(s) PO TID 010 12/22/2009 Inactive Hydrocodone-Acetaminophen 7.5 mg-750 mg Tab RxNorm: 786369 1 Ta blet(s) PO Q4-6H 12/23/2009 12/22/2009 Inactive Levemir FlexTouch U-100 Insulin 100 unit/mL (3 mL) sub cutaneous pen RxNorm: 067383 22 Unit(s) SQ QD No Start Date Active aspirin 81 mg tablet RxNorm: 054380 1 Tablet(s) PO QD No Start Date Active isosorbide mononitrate ER 60 mg tablet,extended release 24 h r RxNorm: 447737 1 Tablet(s) PO QD No Start Date Active amlodipine 5 mg tablet RxNorm: 711254 1 Tablet(s) PO QD No Start Date Active Vitamin D3 1,000 unit tablet RxNorm: 178825 3 Tablet(s) PO QD No St art Date 10/26/2014 Inactive Lexapro 20 mg Tab RxNorm: 208853 1 Tablet(s) PO QD No Start Date 12/24 Inactive loperamide 2 mg tablet RxNorm: 217480 Tablet(s) PO PRN No Start Date 06/07/2016 Inactive Janumet 50 mg-1,000 mg Tab RxNorm: 391790 1 Tablet(s) PO BID No Sta rt Date 01/12/2010 Inactive Levemir U-100 Insulin 100 unit/mL subcutaneous solution RxNo rm: 317905 10 Unit(s) SQ QHS No Start Date 12/08/2018 Inactive Medrol (Gui) 4 mg tablets in a dose pack RxNorm: 520969 Tablet(s) PO Use as directed No Start Date 12/22/2018 Inactive aspirin 325 mg tablet RxNorm: 168527 1 Tablet(s) PO QD No Start Date 08/09/2016 Inactive Efudex 5 % Topical Cream RxNorm: 419556 Application TOP QD prn fto skin lesion No Start Date 08/12/2013 Inactive nitroglycerin 0.4 mg sublingual tablet RxNorm: 797475 Tablet(s) SL as needed No Start Date 12/18/2018 Inactive levofloxacin 500 mg tablet RxNorm: 778891 1 Tablet(s) PO QD No Star t Date 08/06/2018 Inactive ferrous sulfate 325 mg (65 mg iron) tablet RxNorm: 453722 1 Tab let(s) PO QHS No Start Date 04/16/2017 Inactive fluorouracil 5 % topical cream RxNorm: 092081 1 TOP No Start James e 08/06/2018 Inactive Vitamin D3 1,000 unit capsule RxNorm: 109396 1 Capsule(s) PO QD No Start Date 02/03/2018 Inactive Hydrocodone-Acetaminophen 7.5 mg-750 mg Tab RxNorm: 088485 1 Ta blet(s) PO PRN No Start Date 08/09/2014 Inactive pantoprazole 40 mg tablet,delayed release RxNorm: 588444 1 Tabl et(s) PO QD No Start Date 01/22/2018 Inactive omeprazole 20 mg Cap, Delayed Release RxNorm: 108864 2 Capsule( s) PO QD No Start Date 09/12/2010 Inactive DuoNeb 0.5 mg-3 mg(2.5 mg base)/3 mL solution for nebulizati on RxNorm: 6546982 INH Q4H as needed No Start Date 10/22/2018 Inactive Lyrica 75 mg capsule RxNorm: 186740 2 Capsule(s) PO QHS No Start Da te 03/09/2019 Inactive isosorbide mononitrate ER 30 mg tablet,extended release 24 h r RxNorm: 540952 1 Tablet(s) PO QD No Start Date 12/08/2018 Inactive Tradjenta 5 mg tablet RxNorm: 6333888 1 Tablet(s) PO QD No Start Da te 08/09/2016 Inactive Tudorza Pressair 400 mcg/actuation breath activated RxNorm: 2774614 1 Puff(s) INH BID No Start Date 06/17/2017 Inactive Lantus Solostar 100 unit/mL (3 mL) Sub-Q Insulin Pen RxNorm: 565694 30 Unit(s) SQ QD No Start Date 06/18/2011 Inactive Requip 4 mg tablet RxNorm: 745627 1 Tablet(s) PO BID No Start Date Inactive Symbicort 160 mcg-4.5 mcg/actuation HFA aerosol inhaler RxNo rm: 8950892 2 Puff(s) INH BID No Start Date 07/11/2018 Inactive atorvastatin 40 mg tablet RxNorm: 201405 1 Tablet(s) PO QD No Start Date 12/18/2018 Inactive tramadol 50 mg tablet RxNorm: 196853 1 Tablet(s) PO TID as needed for pain (take alone with two extra strength tylenol) No Start Date 01/16/2019 Inactive Symbicort 160 mcg-4.5 mcg/actuation HFA aerosol inhaler RxNo rm: 0012714 2 Puff(s) INH BID No Start Date 08/12/2013 Inactive Vitamin D3 5,000 unit tablet RxNorm: 924633 1 Tablet(s) PO QD No St art Date 05/08/2019 Inactive albuterol sulfate 2.5 mg/3 mL (0.083 %) Neb Solution RxNorm: 972532 1 Unit Dose INH Q4H prn wheezing or shortness of breath No Start Date 01/29/2013 Inac tive Ranexa 500 mg tablet,extended release RxNorm: 573283 1 Tablet(s ) PO BID No Start Date 02/03/2018 Inactive Advair Diskus 500 mcg-50 mcg/dose powder for inhalation RxNo rm: 6590563 1 Puff(s) INH BID No Start Date 08/09/2016 Inactive clopidogrel 75 mg tablet RxNorm: 781680 1 Tablet(s) PO QD No Start Date 05/01/2018 Inactive metformin 1,000 mg Tab RxNorm: 813614 1 Tablet(s) PO BID No Start D ate 08/12/2013 Inactive Silenor 3 mg tablet RxNorm: 923663 1 Tablet(s) PO QHS No Start Date 0 04/04/2017 Inactive Medrol (Gui) 4 mg tablets in a dose pack RxNorm: 363704 Tablet(s) PO as directed No Start Date 01/19/2013 Inactive Requip 4 mg tablet RxNorm: 662480 1 Tablet(s) PO BID No Start Date Inactive clopidogrel 75 mg tablet RxNorm: 356702 1 Tablet(s) PO QD No Start Date 02/03/2018 Inactive Tradjenta 5 mg tablet RxNorm: 9228634 1 Tablet(s) PO QD No Start Da te 02/03/2018 Inactive ProAir HFA 90 mcg/Actuation Aerosol Inhaler RxNorm: 982250 2 Pu ff(s) INH PRN No Start Date 07/09/2012 Inactive Tessalon Perles 100 mg capsule RxNorm: 283072 1 Capsule (s) PO TID as needed for cough No Start Date 08/30/2014 Inactive ferrous sulfate 325 mg (65 mg iron) tablet RxNorm: 896425 1 Tab let(s) PO QD No Start Date 05/08/2019 Inactive pioglitazone 15 mg tablet RxNorm: 006880 1 Tablet(s) PO QD No Start Date 09/20/2014 Inactive Lexapro Oral RxNorm: Oral No Start Date 12/13/2009 Inactive Breo Ellipta 100 mcg-25 mcg/dose powder for inhalation RxNor m: 0813342 1 Puff(s) INH BID No Start Date 05/31/2015 Inactive Tylenol Extra Strength 500 mg tablet RxNorm: 950359 2 T ablet(s) PO QHS along with ropironole No Start Date 12/18/2018 Inactive tramadol 50 mg tablet RxNorm: 484467 1 Tablet(s) PO QID as need ed for pain No Start Date 12/24/2018 Inactive cyclobenzaprine 10 mg Tab RxNorm: 058953 Oral No Start Date 12/22 Inactive Levemir FlexTouch 100 unit/mL (3 mL) subcutaneous insulin pe n RxNorm: 787901 10 Unit(s) SQ QD No Start Date 03/08/2016 Inactive amlodipine 5 mg tablet RxNorm: 750380 1 Tablet(s) PO QD No Start Da te 08/09/2016 Inactive Novolog 100 unit/mL subcutaneous solution RxNorm: 642963 10 Uni t(s) SQ AC No Start Date 08/12/2017 Inactive Levemir FlexTouch 100 unit/mL (3 mL) subcutaneous insulin pe n RxNorm: 678060 25 Unit(s) SQ QPM No Start Date 08/06/2018 Inactive Farxiga 5 mg tablet RxNorm: 5754116 1 Tablet(s) PO QD No Start Date 0 10/05/2014 Inactive DuoNeb 0.5 mg-3 mg(2.5 mg base)/3 mL solution for nebulizati on RxNorm: 5613691 inhalation No Start Date 09/23/2014 Inactive Doxycycline 100 mg Cap RxNorm: 526976 1 Capsule(s) PO BID No Start Date 12/18/2010 Inactive Vitamin B12 1000mcg Tablet RxNorm: 1 Tablet(s) PO QD No Start Date 02/03/2018 Inactive Hydrocodone-Acetaminophen 7.5 mg-750 mg Tab RxNorm: 211939 1 Ta blet(s) PO Q6-8H No Start Date 12/22/2009 Inactive Xigduo XR 5 mg-1,000 mg tablet,extended release RxNorm: 1593 833 1 Tablet(s) PO QD No Start Date 05/31/2015 Inactive cyanocobalamin (vit B-12) 1,000 mcg/mL injection solution Rx Norm: 769796 1 injection weekly for 4 weeks 1 Milliliter(s) Inj No Start Date 05/08/2019 Inactive AndroGel 1.25 g/Actuation (1%) Transdermal Gel Pump RxNorm: 7752053 TD Apply 4pumps daily No Start Date 08/21/2011 Inactive Actoplus MET 15 mg-850 mg Tab RxNorm: 366267 1 Tablet(s) PO BID No Start Date 12/18/2010 Inactive Amaryl 2 mg tablet RxNorm: 168357 1 Tablet(s) PO BID No Start Date Inactive Levemir FlexTouch 100 unit/mL (3 mL) subcutaneous insulin pe n RxNorm: 300201 20 Unit(s) SQ QD No Start Date 06/12/2016 Inactive Symbicort 160 mcg-4.5 mcg/actuation HFA aerosol inhaler RxNo rm: 1902103 2 Puff(s) INH BID No Start Date 02/03/2018 Inactive Symbicort 160 mcg-4.5 mcg/Actuation Inhalation HFA Aer osol Inhaler RxNorm: 5672098 2 INH BID No Start Date 12/18/2010 Inactive Farxiga 5 mg tablet RxNorm: 9137489 1 Tablet(s) PO QD No Start Date 0 03/01/2015 Inactive magnesium oxide 400 mg (241.3 mg magnesium) tablet RxNorm: 1 03633 1 Tablet(s) PO QHS No Start Date 05/08/2019 Inactive Tradjenta 5 mg tablet RxNorm: 2242537 2 Tablet(s) PO QD No Start Da te 07/21/2015 Inactive Levemir FlexTouch U-100 Insulin 100 unit/mL (3 mL) sub cutaneous pen RxNorm: 941329 40 Unit(s) SQ QD No Start Date 08/06/2018 Inactive Sinemet CR 50 mg-200 mg tablet,extended release RxNorm: 8343 41 1 Tablet(s) PO QHS No Start Date 09/24/2017 Inactive metoprolol tartrate 25 mg tablet RxNorm: 558327 1/2 Tablet(s) P O BID No Start Date 02/03/2018 Inactive Requip 4 mg tablet RxNorm: 984599 1 Tablet(s) PO QHS No Start Date Inactive Ventolin HFA 90 mcg/actuation aerosol inhaler RxNorm: 757163 2 Puff(s) INH Q4H as needed No Start Date 04/22/2018 Inactive B12 5,000 mcg-100 mcg sublingual lozenge RxNorm: 703329 IM as d irected No Start Date 05/08/2019 Inactive ropinirole 1 mg tablet RxNorm: 609127 1 Tablet(s) PO QHS No Start D ate 08/06/2018 Inactive Percocet 5 mg-325 mg tablet RxNorm: 0253889 1 Tablet(s) PO Q4H as needed for pain (Dr Rizzo) No Start Date 10/22/2018 Inactive hydrocodone 5 mg-acetaminophen 325 mg tablet RxNorm: 667441 1 Tablet(s) PO TID as needed for pain for severe pain No Start Date 04/16/2014 Inactive scopolamine 1.5 mg 72 hr Transderm Patch RxNorm: 676655 Application TD Q72H for dizziness No Start Date 08/12/2013 Inactive ipratropium-albuterol 0.5 mg-3 mg(2.5 mg base)/3 mL ne bulization soln RxNorm: 9054212 1 Unit Dose INH Q4H No Start Date 01/16/2019 Inactive Medication Administered No Medication Administered data Immunizations Vaccine Codes Date Status Influenza CVX: 135 08/07/2019 Complete Pneumococcal CVX: 33 07/24/2017 Complete Influenza CVX: 135 06/13/2016 Complete Pneumococcal CVX: 133 06/13/2016 Complete Influenza CVX: 141 07/10/2012 Pneumovax Unknown 07/10/2012 Results Observation Observation Code Item Item Code Result Date S vice Location COMPLETE BLOOD COUNT [id number] WBC 5.5 10e9/L 06/17/20 19 Unknown COMPLETE BLOOD COUNT [id number] RBC 3.92 10e12/L 2018 Unknown COMPLETE BLOOD COUNT [id number] HEMOGLOBIN 10.9 g/dL 06/17/20 19 Unknown COMPLETE BLOOD COUNT 4404738 HEMATOCRIT 34.8 % 06/17/20 19 Unknown COMPLETE BLOOD COUNT 4312575 MCV 88.8 fL 9 Unknown COMPLETE BLOOD COUNT 2460115 MCH 27.8 pg 9 Unknown COMPLETE BLOOD COUNT 7325475 MCHC 31.3 g/dL 9 Unknown COMPLETE BLOOD COUNT 0508620 PLATELET COUNT 239 10e9/L Unknown COMPLETE BLOOD COUNT 2834010 Mean Plt Volume 10.0 fL Unknown COMPLETE BLOOD COUNT 1754818 Neut Auto 68.0 % 9 Unknown COMPLETE BLOOD COUNT 6491949 Lymph Auto 14.8 % 06/17/20 19 Unknown COMPLETE BLOOD COUNT 2713015 [place] Auto 13.1 % 9 Unknown COMPLETE BLOOD COUNT 7400267 RDW 14.7 % 9 Unknown COMPLETE BLOOD COUNT 5050368 Eos Auto 3.6 % 9 Unknown COMPLETE BLOOD COUNT 8597579 Baso Auto 0.5 % 9 Unknown COMPLETE BLOOD COUNT 7407224 Neutrophil Abs 3.74 10e9/L Unknown COMPLETE BLOOD COUNT 3312530 Lymphocyte Abs 0.81 10e9/L Unknown COMPLETE BLOOD COUNT 1694767 Monocyte Abs 0.72 10e9/L 05/26 Unknown COMPLETE BLOOD COUNT 1710861 Eosinophil Abs 0.20 10e9/L Unknown COMPLETE BLOOD COUNT 7743441 RDW-SD 46.4 fL 9 Unknown COMPLETE BLOOD COUNT 8361038 Basophil Abs 0.03 10e9/L 05/26 Unknown IRON 16334 Iron 36 ug/dL 06/17/2019 Unknown VITAMIN B 12 62917 VITAMIN B12 540 pg/mL 06/17/2019 Unkn own GFR CALC 6228592 GFR Non Afr Amr 59 mL/min 06/17/2019 Unk nown GFR CALC 5442141 GFR Afr Amr >60 mL/min 06/17/2019 Unknow n ERYTHROCYTE SEDIMENTATION RATE 91938 Sed Rate 34 mm/hr 06/17/2019 Unknown THYROID STIMULATING HORMONE 30228 TSH 2.217 uIU/mL 06/17/2019 Unknown COMPREHENSIVE METABOLIC 71178 AST 12 U/L 2018 Unknown COMPREHENSIVE METABOLIC 54797 ALT 11 U/L 2018 Unknown COMPREHENSIVE METABOLIC 48371 BUN 17 mg/dL 2018 Unknown COMPREHENSIVE METABOLIC 63541 ALBUMIN 3.9 g/dL 2018 Unknown COMPREHENSIVE METABOLIC 38605 CHLORIDE 103 mmol/L 06/17 Unknown COMPREHENSIVE METABOLIC 67240 Bili Total 0.4 mg/dL 06/17 Unknown COMPREHENSIVE METABOLIC 94751 ALK PHOS 51 U/L 2018 Unknown COMPREHENSIVE METABOLIC 39429 SODIUM 140 mmol/L 06/17 Unknown COMPREHENSIVE METABOLIC 20519 CREATININE 1.20 mg/dL 05/26 Unknown COMPREHENSIVE METABOLIC 88368 CALCIUM 8.9 mg/dL 2018 Unknown COMPREHENSIVE METABOLIC 87287 POTASSIUM 4.5 mmol/L 06/17 Unknown COMPREHENSIVE METABOLIC 03025 Total Protein 6.1 g/dL Unknown COMPREHENSIVE METABOLIC 89544 Glucose 108 mg/dL 2018 Unknown COMPREHENSIVE METABOLIC 40585 Bicarbonate 27 mmol/L 05/26 Unknown COMPREHENSIVE METABOLIC 37126 AGAP 10 mmol/L 2018 Unknown FERRITIN 63111 FERRITIN 35.5 ng/mL 05/08/2019 Unknown VITAMIN D TOTAL (25 HYDROXY) 63910 Vitamin D 25 OH 26.0 ng/mL 05/08/2019 Unknown GLYCOSYLATED HEMOGLOBIN TEST 57787 Hgb A1c 50013-9 8.2 % 0 05/08/2019 Unknown MEAN GLUC 0955356 Calc Mean Gluc 189 mg/dL 05/08/2019 Unkn own GFR CALC 2782613 GFR Non Afr Amr >60 mL/min 05/08/2019 Un known GFR CALC 8787058 GFR Afr Amr >60 mL/min 05/08/2019 Unknow n VITAMIN B 12 60109 VITAMIN B12 197 pg/mL 05/08/2019 Unkn own IRON 33773 Iron 34 ug/dL 05/08/2019 Unknown COMPLETE BLOOD COUNT 2992459 WBC 6.9 10e9/L 05/08/20 19 Unknown COMPLETE BLOOD COUNT 5061609 RBC 3.95 10e12/L 2018 Unknown COMPLETE BLOOD COUNT 1858524 HEMOGLOBIN 11.1 g/dL 05/08/20 19 Unknown COMPLETE BLOOD COUNT 1472168 HEMATOCRIT 34.9 % 05/08/20 19 Unknown COMPLETE BLOOD COUNT 4421007 MCV 88.4 fL 9 Unknown COMPLETE BLOOD COUNT 3364534 MCH 28.1 pg 9 Unknown COMPLETE BLOOD COUNT 4161952 MCHC 31.8 g/dL 9 Unknown COMPLETE BLOOD COUNT 4429412 PLATELET COUNT 217 10e9/L Unknown COMPLETE BLOOD COUNT 8523899 Mean Plt Volume 9.6 fL Unknown COMPLETE BLOOD COUNT 5424838 Neut Auto 77.6 % 9 Unknown COMPLETE BLOOD COUNT 2635773 Lymph Auto 10.7 % 05/08/20 19 Unknown COMPLETE BLOOD COUNT 5230540 [place] Auto 10.4 % 9 Unknown COMPLETE BLOOD COUNT 2109218 RDW 14.7 % 9 Unknown COMPLETE BLOOD COUNT 0022511 Eos Auto 1.2 % 9 Unknown COMPLETE BLOOD COUNT 2982264 Baso Auto 0.1 % 9 Unknown COMPLETE BLOOD COUNT 1610676 Neutrophil Abs 5.35 10e9/L Unknown COMPLETE BLOOD COUNT 7012103 Lymphocyte Abs 0.74 10e9/L Unknown COMPLETE BLOOD COUNT 8984794 Monocyte Abs 0.72 10e9/L 04/24 Unknown COMPLETE BLOOD COUNT 4565779 Eosinophil Abs 0.08 10e9/L Unknown COMPLETE BLOOD COUNT 5029886 RDW-SD 46.6 fL 9 Unknown COMPLETE BLOOD COUNT 8187277 Basophil Abs 0.01 10e9/L 04/24 Unknown COMPREHENSIVE METABOLIC 68857 AST 13 U/L 2018 Unknown COMPREHENSIVE METABOLIC 58266 ALT 9 U/L 2018 Unknown COMPREHENSIVE METABOLIC 70685 BUN 18 mg/dL 2018 Unknown COMPREHENSIVE METABOLIC 35873 ALBUMIN 4.3 g/dL 2018 Unknown COMPREHENSIVE METABOLIC 72075 CHLORIDE 99 mmol/L 2018 Unknown COMPREHENSIVE METABOLIC 84856 Bili Total 0.4 mg/dL 05/08 Unknown COMPREHENSIVE METABOLIC 54374 ALK PHOS 48 U/L 2018 Unknown COMPREHENSIVE METABOLIC 04136 SODIUM 137 mmol/L 05/08 Unknown COMPREHENSIVE METABOLIC 88872 CREATININE 0.79 mg/dL 04/24 Unknown COMPREHENSIVE METABOLIC 99584 CALCIUM 9.5 mg/dL 2018 Unknown COMPREHENSIVE METABOLIC 33536 POTASSIUM 4.0 mmol/L 05/08 Unknown COMPREHENSIVE METABOLIC 23665 Total Protein 6.3 g/dL Unknown COMPREHENSIVE METABOLIC 13642 Glucose 232 mg/dL 2018 Unknown COMPREHENSIVE METABOLIC 44898 Bicarbonate 27 mmol/L 04/24 Unknown COMPREHENSIVE METABOLIC 43852 AGAP 11 mmol/L 2018 Unknown GLYCOSYLATED HEMOGLOBIN TEST 35480 Hgb A1c 38129-1 8.9 % 0 12/10/2018 Unknown MEAN GLUC 2782511 Calc Mean Gluc 209 mg/dL 12/10/2018 Unkn own LIPID GROUP 69953 Cholesterol 145 mg/dL 12/09/2018 Unkno wn LIPID GROUP 76627 Triglyceride 235 mg/dL 12/09/2018 Unkn own LIPID GROUP 62722 HDL CHOLESTEROL 40 mg/dL 12/09/2018 U nknown LIPID GROUP 52547 Chol/HDL Ratio 3.62 ratio 12/09/2018 U nknown LIPID GROUP 65638 NON-HDL Chol 105 mg/dL 12/09/2018 Unkn own LIPID GROUP 15889 LDL Cholesterol 58 mg/dL 12/09/2018 U nknown THYROID STIMULATING HORMONE 43340 TSH 1.071 uIU/mL 12/09/2018 Unknown GFR CALC 7534016 GFR Non Afr Amr >60 mL/min 12/09/2018 Un known GFR CALC 5519807 GFR Afr Amr >60 mL/min 12/09/2018 Unknow n COMPLETE BLOOD COUNT 2935323 WBC 7.6 10e9/L 12/10/19 19 Unknown COMPLETE BLOOD COUNT 3807783 RBC 3.97 10e12/L 2018 Unknown COMPLETE BLOOD COUNT 4769825 HEMOGLOBIN 11.4 g/dL 12/10/19 19 Unknown COMPLETE BLOOD COUNT 1294232 HEMATOCRIT 35.8 % 12/10/19 19 Unknown COMPLETE BLOOD COUNT 5502383 MCV 90.2 fL 9 Unknown COMPLETE BLOOD COUNT 8561857 MCH 28.7 pg 9 Unknown COMPLETE BLOOD COUNT 0219261 MCHC 31.8 g/dL 9 Unknown COMPLETE BLOOD COUNT 2585069 PLATELET COUNT 200 10e9/L Unknown COMPLETE BLOOD COUNT 6949228 Mean Plt Volume 10.1 fL Unknown COMPLETE BLOOD COUNT 2829827 Neut Auto 79.0 % 9 Unknown COMPLETE BLOOD COUNT 5757038 Lymph Auto 8.3 % 12/10/19 19 Unknown COMPLETE BLOOD COUNT 1308808 [place] Auto 10.8 % 9 Unknown COMPLETE BLOOD COUNT 0674633 RDW 14.6 % 9 Unknown COMPLETE BLOOD COUNT 4090007 Eos Auto 1.5 % 9 Unknown COMPLETE BLOOD COUNT 6005511 Baso Auto 0.4 % 9 Unknown COMPLETE BLOOD COUNT 9614769 Neutrophil Abs 6.00 10e9/L Unknown COMPLETE BLOOD COUNT 4955528 Lymphocyte Abs 0.63 10e9/L Unknown COMPLETE BLOOD COUNT 9760963 Monocyte Abs 0.82 10e9/L 11/22 Unknown COMPLETE BLOOD COUNT 0943975 Eosinophil Abs 0.11 10e9/L Unknown COMPLETE BLOOD COUNT 4743969 RDW-SD 46.9 fL 9 Unknown COMPLETE BLOOD COUNT 3391525 Basophil Abs 0.03 10e9/L 11/22 Unknown COMPREHENSIVE METABOLIC 85225 AST 11 U/L 2018 Unknown COMPREHENSIVE METABOLIC 17582 ALT 11 U/L 2018 Unknown COMPREHENSIVE METABOLIC 11255 BUN 21 mg/dL 2018 Unknown COMPREHENSIVE METABOLIC 51576 ALBUMIN 4.7 g/dL 2018 Unknown COMPREHENSIVE METABOLIC 69917 CHLORIDE 99 mmol/L 2018 Unknown COMPREHENSIVE METABOLIC 28371 Bili Total 0.4 mg/dL 12/09 Unknown COMPREHENSIVE METABOLIC 04473 ALK PHOS 73 U/L 2018 Unknown COMPREHENSIVE METABOLIC 41990 SODIUM 137 mmol/L 12/09 Unknown COMPREHENSIVE METABOLIC 59773 CREATININE 1.12 mg/dL 11/22 Unknown COMPREHENSIVE METABOLIC 10539 CALCIUM 9.4 mg/dL 2018 Unknown COMPREHENSIVE METABOLIC 77911 POTASSIUM 4.2 mmol/L 12/09 Unknown COMPREHENSIVE METABOLIC 33497 Total Protein 6.8 g/dL Unknown COMPREHENSIVE METABOLIC 50757 Glucose 194 mg/dL 2018 Unknown COMPREHENSIVE METABOLIC 45655 Bicarbonate 30 mmol/L 11/22 Unknown COMPREHENSIVE METABOLIC 17781 AGAP 8 mmol/L 2018 Unknown FREE T4 51895 T4 Free 0.86 ng/dL 12/09/2018 Unknown COMPLETE BLOOD COUNT 1334796 WBC 6.8 10e9/L 04/17/20 17 Unknown COMPLETE BLOOD COUNT 5201974 RBC 3.86 10e12/L 2016 Unknown COMPLETE BLOOD COUNT 9196870 HEMOGLOBIN 9.8 g/dL 04/17/20 17 Unknown COMPLETE BLOOD COUNT 8381294 HEMATOCRIT 31.1 % 04/17/20 17 Unknown COMPLETE BLOOD COUNT 9762912 MCV 80.6 fL 7 Unknown COMPLETE BLOOD COUNT 0122331 MCH 25.4 pg 7 Unknown COMPLETE BLOOD COUNT 2924984 MCHC 31.5 g/dL 7 Unknown COMPLETE BLOOD COUNT 8605234 PLATELET COUNT 247 10e9/L Unknown COMPLETE BLOOD COUNT 2849939 Mean Plt Volume 9.7 fL Unknown COMPLETE BLOOD COUNT 9169747 Neut Auto 74.1 % 7 Unknown COMPLETE BLOOD COUNT 0652844 Lymph Auto 12.0 % 04/17/20 17 Unknown COMPLETE BLOOD COUNT 1394790 [place] Auto 10.8 % 7 Unknown COMPLETE BLOOD COUNT 2797406 RDW 15.9 % 7 Unknown COMPLETE BLOOD COUNT 1681142 Eos Auto 2.5 % 7 Unknown COMPLETE BLOOD COUNT 7268836 Baso Auto 0.6 % 7 Unknown COMPLETE BLOOD COUNT 3748304 Neutrophil Abs 5.04 10e9/L Unknown COMPLETE BLOOD COUNT 2786030 Lymphocyte Abs 0.82 10e9/L Unknown COMPLETE BLOOD COUNT 4329935 Monocyte Abs 0.73 10e9/L 03/25 Unknown COMPLETE BLOOD COUNT 4503233 Eosinophil Abs 0.17 10e9/L Unknown COMPLETE BLOOD COUNT 0774485 RDW-SD 44.4 fL 7 Unknown COMPLETE BLOOD COUNT 1790030 Basophil Abs 0.04 10e9/L 03/25 Unknown MEAN GLUC 6238285 Calc Mean Gluc 223 mg/dL 04/17/2017 Unkn own GFR CALC 9800906 GFR Non Afr Amr >60 mL/min 04/17/2017 Un known GFR CALC 5848306 GFR Afr Amr >60 mL/min 04/17/2017 Unknow n GLYCOSYLATED HEMOGLOBIN TEST 61890 Hgb A1c 29203-1 9.4 % 0 04/17/2017 Unknown IRON 02269 Iron 37 ug/dL 04/17/2017 Unknown VITAMIN B 12 07425 VITAMIN B12 280 pg/mL 04/17/2017 Unkn own THYROID STIMULATING HORMONE 36272 TSH 2.481 uIU/mL 04/17/2017 Unknown COMPREHENSIVE METABOLIC 96348 AST 13 U/L 2016 Unknown COMPREHENSIVE METABOLIC 15734 ALT 12 U/L 2016 Unknown COMPREHENSIVE METABOLIC 80758 BUN 18 mg/dL 2016 Unknown COMPREHENSIVE METABOLIC 35741 ALBUMIN 4.7 g/dL 2016 Unknown COMPREHENSIVE METABOLIC 37701 CHLORIDE 103 mmol/L 04/17 Unknown COMPREHENSIVE METABOLIC 97665 Bili Total 0.4 mg/dL 04/17 Unknown COMPREHENSIVE METABOLIC 63738 ALK PHOS 49 U/L 2016 Unknown COMPREHENSIVE METABOLIC 76716 SODIUM 140 mmol/L 04/17 Unknown COMPREHENSIVE METABOLIC 33614 CREATININE 1.14 mg/dL 03/25 Unknown COMPREHENSIVE METABOLIC 03754 CALCIUM 9.4 mg/dL 2016 Unknown COMPREHENSIVE METABOLIC 24623 POTASSIUM 4.4 mmol/L 04/17 Unknown COMPREHENSIVE METABOLIC 72288 Total Protein 6.7 g/dL Unknown COMPREHENSIVE METABOLIC 81292 Glucose 266 mg/dL 2016 Unknown COMPREHENSIVE METABOLIC 81826 Bicarbonate 25 mmol/L 03/25 Unknown COMPREHENSIVE METABOLIC 51730 AGAP 12 mmol/L 2016 Unknown FERRITIN 33009 FERRITIN 10.0 ng/mL 04/17/2017 Unknown COMPLETE BLOOD COUNT 9222202 WBC 6.8 10e9/L 12/22/19 17 Unknown COMPLETE BLOOD COUNT 1869759 RBC 3.70 10e12/L 2016 Unknown COMPLETE BLOOD COUNT 3289557 HEMOGLOBIN 8.0 g/dL 12/22/19 17 Unknown COMPLETE BLOOD COUNT 6871638 HEMATOCRIT 26.7 % 12/22/19 17 Unknown COMPLETE BLOOD COUNT 3873297 MCV 72.2 fL 7 Unknown COMPLETE BLOOD COUNT 0480826 MCH 21.6 pg 7 Unknown COMPLETE BLOOD COUNT 7602058 MCHC 30.0 g/dL 7 Unknown COMPLETE BLOOD COUNT 9054578 PLATELET COUNT 290 10e9/L Unknown COMPLETE BLOOD COUNT 2929807 Mean Plt Volume 9.3 fL Unknown COMPLETE BLOOD COUNT 9669394 Neut Auto 80.2 % 7 Unknown COMPLETE BLOOD COUNT 9541414 Lymph Auto 9.8 % 12/22/19 17 Unknown COMPLETE BLOOD COUNT 6210444 [place] Auto 8.1 % 7 Unknown COMPLETE BLOOD COUNT 7993505 RDW 17.4 % 7 Unknown COMPLETE BLOOD COUNT 7750291 Eos Auto 1.5 % 7 Unknown COMPLETE BLOOD COUNT 7756021 Baso Auto 0.4 % 7 Unknown COMPLETE BLOOD COUNT 7312549 Neutrophil Abs 5.45 10e9/L Unknown COMPLETE BLOOD COUNT 7078216 Lymphocyte Abs 0.67 10e9/L Unknown COMPLETE BLOOD COUNT 9147458 Monocyte Abs 0.55 10e9/L 11/24 Unknown COMPLETE BLOOD COUNT 4099720 Eosinophil Abs 0.10 10e9/L Unknown COMPLETE BLOOD COUNT 4614927 RDW-SD 44.1 fL 7 Unknown COMPLETE BLOOD COUNT 5820840 Basophil Abs 0.03 10e9/L 11/24 Unknown COMPLETE BLOOD COUNT 2392167 WBC 7.6 10e9/L 12/13/19 17 Unknown COMPLETE BLOOD COUNT 9641837 RBC 3.71 10e12/L 2016 Unknown COMPLETE BLOOD COUNT 9090436 HEMOGLOBIN 8.0 g/dL 12/13/19 17 Unknown COMPLETE BLOOD COUNT 3777738 HEMATOCRIT 27.3 % 12/13/19 17 Unknown COMPLETE BLOOD COUNT 1560657 MCV 73.6 fL 7 Unknown COMPLETE BLOOD COUNT 8983230 MCH 21.6 pg 7 Unknown COMPLETE BLOOD COUNT 7245129 MCHC 29.3 g/dL 7 Unknown COMPLETE BLOOD COUNT 7689706 PLATELET COUNT 330 10e9/L Unknown COMPLETE BLOOD COUNT 3862766 Mean Plt Volume 9.7 fL Unknown COMPLETE BLOOD COUNT 1788340 Neut Auto 73.2 % 7 Unknown COMPLETE BLOOD COUNT 9099924 Lymph Auto 14.5 % 12/13/19 17 Unknown COMPLETE BLOOD COUNT 0308085 [place] Auto 10.5 % 7 Unknown COMPLETE BLOOD COUNT 8533865 RDW 17.3 % 7 Unknown COMPLETE BLOOD COUNT 7167674 Eos Auto 1.3 % 7 Unknown COMPLETE BLOOD COUNT 0600762 Baso Auto 0.5 % 7 Unknown COMPLETE BLOOD COUNT 9525393 Neutrophil Abs 5.56 10e9/L Unknown COMPLETE BLOOD COUNT 5158705 Lymphocyte Abs 1.10 10e9/L Unknown COMPLETE BLOOD COUNT 1640511 Monocyte Abs 0.80 10e9/L 11/23 Unknown COMPLETE BLOOD COUNT 5381455 Eosinophil Abs 0.10 10e9/L Unknown COMPLETE BLOOD COUNT 3037281 RDW-SD 45.2 fL 7 Unknown COMPLETE BLOOD COUNT 9790718 Basophil Abs 0.04 10e9/L 11/23 Unknown IRON 52564 Iron 69 ug/dL 03/09/2016 Unknown VITAMIN B 12 00856 VITAMIN B12 311 pg/mL 03/09/2016 Unkn own MEAN GLUC 8687525 Mean Glucose 260 mg/dL 03/07/2016 Unknow n GLYCOSYLATED HEMOGLOBIN TEST 29119 Hgb A1c 69992-9 10.7 % 0 03/07/2016 Unknown COMPREHENSIVE METABOLIC 41202 AST 14 U/L 2015 Unknown COMPREHENSIVE METABOLIC 53521 ALT 21 U/L 2015 Unknown COMPREHENSIVE METABOLIC 31897 BUN 27 mg/dL 2015 Unknown COMPREHENSIVE METABOLIC 52385 ALBUMIN 4.5 g/dL 2015 Unknown COMPREHENSIVE METABOLIC 62410 CHLORIDE 101 mmol/L 03/06 Unknown COMPREHENSIVE METABOLIC 29110 Bili Total 0.4 mg/dL 03/06 Unknown COMPREHENSIVE METABOLIC 24530 ALK PHOS 49 U/L 2015 Unknown COMPREHENSIVE METABOLIC 45523 SODIUM 136 mmol/L 03/06 Unknown COMPREHENSIVE METABOLIC 92482 CREATININE 1.16 mg/dL 02/22 Unknown COMPREHENSIVE METABOLIC 56401 CALCIUM 9.9 mg/dL 2015 Unknown COMPREHENSIVE METABOLIC 51095 POTASSIUM 4.5 mmol/L 03/06 Unknown COMPREHENSIVE METABOLIC 04046 Total Protein 6.7 g/dL Unknown COMPREHENSIVE METABOLIC 03564 Glucose 245 mg/dL 2015 Unknown COMPREHENSIVE METABOLIC 91718 Bicarbonate 24 mmol/L 02/22 Unknown COMPREHENSIVE METABOLIC 92636 AGAP 11 mmol/L 2015 Unknown THYROID STIMULATING HORMONE 40263 TSH 0.775 uIU/mL 03/06/2016 Unknown TESTOSTERONE TOTAL 10042 Testos Total 96 ng/dL 03/06/20 16 Unknown LIPID GROUP 66541 Cholesterol 146 mg/dL 03/06/2016 Unkno wn LIPID GROUP 34154 Triglyceride 249 mg/dL 03/06/2016 Unkn own LIPID GROUP 10104 HDL CHOLESTEROL 46 mg/dL 03/06/2016 U nknown LIPID GROUP 14892 Chol/HDL Ratio 3.17 ratio 03/06/2016 U nknown LIPID GROUP 87938 NON-HDL Chol 100 mg/dL 03/06/2016 Unkn own LIPID GROUP 40414 LDL Cholesterol 50 mg/dL 03/06/2016 U nknown COMPLETE BLOOD COUNT 1419314 WBC 11.2 10e9/L 016 Unknown COMPLETE BLOOD COUNT 4127683 RBC 3.94 10e12/L 2015 Unknown COMPLETE BLOOD COUNT 2922167 HEMOGLOBIN 11.4 g/dL 03/06/20 16 Unknown COMPLETE BLOOD COUNT 6314007 HEMATOCRIT 33.7 % 03/06/20 16 Unknown COMPLETE BLOOD COUNT 3516535 MCV 85.5 fL 6 Unknown COMPLETE BLOOD COUNT 7774046 MCH 28.9 pg 6 Unknown COMPLETE BLOOD COUNT 3268521 MCHC 33.8 g/dL 6 Unknown COMPLETE BLOOD COUNT 9637824 PLATELET COUNT 204 10e9/L Unknown COMPLETE BLOOD COUNT 7361158 Mean Plt Volume 10.1 fL Unknown COMPLETE BLOOD COUNT 2608417 Neut Auto 85.9 % 6 Unknown COMPLETE BLOOD COUNT 6159435 Lymph Auto 6.8 % 03/06/20 16 Unknown COMPLETE BLOOD COUNT 2765127 [place] Auto 7.0 % 6 Unknown COMPLETE BLOOD COUNT 9760460 RDW 13.7 % 6 Unknown COMPLETE BLOOD COUNT 0674428 Eos Auto 0.1 % 6 Unknown COMPLETE BLOOD COUNT 4090966 Baso Auto 0.2 % 6 Unknown COMPLETE BLOOD COUNT 8739208 Neutrophil Abs 9.62 10e9/L Unknown COMPLETE BLOOD COUNT 3272805 Lymphoctye Abs 0.76 10e9/L Unknown COMPLETE BLOOD COUNT 9654187 Monocyte Abs 0.78 10e9/L 02/22 Unknown COMPLETE BLOOD COUNT 2223749 Eosinophil Abs 0.01 10e9/L Unknown COMPLETE BLOOD COUNT 6837201 RDW-SD 41.9 fL 6 Unknown COMPLETE BLOOD COUNT 7167701 Basophil Abs 0.02 10e9/L 02/22 Unknown FREE T4 24631 T4 Free 0.89 ng/dL 03/06/2016 Unknown GFR CALC 1853392 GFR Non Afr Amr >60 mL/min 03/06/2016 Un known GFR CALC 5271824 GFR Afr Amr >60 mL/min 03/06/2016 Unknow n PSA EQUIMOLAR JONATAN 04787 PSA Total 0.78 ng/mL 6 Unknown FREE T4 39828 FREE T4 0.90 NG/DL 07/01/2015 Unknown LIPID GROUP 10992 HDL TEST 44 MG/DL 07/01/2015 Unknown LIPID GROUP 76195 TRIG 303 MG/DL 07/01/2015 Unknown LIPID GROUP 08349 TEST LDL 56 MG/DL 07/01/2015 Unknown LIPID GROUP 93564 CHOL 161 MG/DL 07/01/2015 Unknown LIPID GROUP 04007 RCHOL/HDL 3.66 RATIO 07/01/2015 Unknow n LIPID GROUP 78640 NON-HDL CH 117 MG/DL 07/01/2015 Unknow n THYROID STIMULATING HORMONE 79920 TSH 1.783 uIU/ML 07/01/2015 Unknown COMPLETE BLOOD COUNT 9975865 WBC 6.6 10e9/L 07/01/20 15 Unknown COMPLETE BLOOD COUNT 3033932 RBC 4.18 10e12/L 2014 Unknown COMPLETE BLOOD COUNT 9701183 HGB 12.2 g/dL 5 Unknown COMPLETE BLOOD COUNT 3812786 HCT DET 37.0 % 5 Unknown COMPLETE BLOOD COUNT 5398088 MCV 88.5 fL 5 Unknown COMPLETE BLOOD COUNT 6440805 MCH 29.2 pg 5 Unknown COMPLETE BLOOD COUNT 5353031 MCHC 33.0 g/dL 5 Unknown COMPLETE BLOOD COUNT 2281999 PLT 224 10e9/L 07/01/20 15 Unknown COMPLETE BLOOD COUNT 6959514 MPV 10.4 fL 5 Unknown COMPLETE BLOOD COUNT 0976824 SUSIE % 72.6 % 5 Unknown COMPLETE BLOOD COUNT 9459192 LY % 14.1 % 5 Unknown COMPLETE BLOOD COUNT 6253933 MON % 10.2 % 5 Unknown COMPLETE BLOOD COUNT 0174213 EOS % 2.6 % 5 Unknown COMPLETE BLOOD COUNT 1844180 BASO % 0.5 % 5 Unknown COMPLETE BLOOD COUNT 0305845 RDW 14.1 % 5 Unknown COMPLETE BLOOD COUNT 1737555 ABS SUSIE 4.79 10e9/L 015 Unknown COMPLETE BLOOD COUNT 4559093 ABS LYMPH 0.93 10e9/L 015 Unknown COMPLETE BLOOD COUNT 0566641 ABS MONO 0.67 10e9/L 015 Unknown COMPLETE BLOOD COUNT 3893810 ABS EOS 0.17 10e9/L 015 Unknown COMPLETE BLOOD COUNT 6150099 ABS BASO 0.03 10e9/L 015 Unknown COMPLETE BLOOD COUNT 0879260 RDW-SD 43.9 fL 5 Unknown PSA EQUIMOLAR JONATAN 15925 PSA EQ 0.73 NG/ML 5 Unknown COMPREHENSIVE METABOLIC 85136 AST 24 U/L 2014 Unknown COMPREHENSIVE METABOLIC 35720 ALT 26 IU/L 2014 Unknown COMPREHENSIVE METABOLIC 15246 BUN 26 MG/DL 2014 Unknown COMPREHENSIVE METABOLIC 53369 ALBUMIN 4.6 GM/DL 2014 Unknown COMPREHENSIVE METABOLIC 27295 CHLORIDE 102 MMOL/L 06/01 Unknown COMPREHENSIVE METABOLIC 25903 BILI TOT 0.5 MG/DL 2014 Unknown COMPREHENSIVE METABOLIC 42937 ALK PHOS 56 U/L 2014 Unknown COMPREHENSIVE METABOLIC 88016 SODIUM 136 MMOL/L 06/01 Unknown COMPREHENSIVE METABOLIC 83791 CREATININE 1.16 MG/DL 04/2015 Unknown COMPREHENSIVE METABOLIC 17940 CALCIUM 9.8 MG/DL 2014 Unknown COMPREHENSIVE METABOLIC 37403 POTASSIUM 4.6 MMOL/L 06/01 Unknown COMPREHENSIVE METABOLIC 16376 PROT TOT 7.4 GM/DL 2014 Unknown COMPREHENSIVE METABOLIC 15216 Glucose 223 MG/DL 2014 Unknown COMPREHENSIVE METABOLIC 67434 BICARB 27 MMOL/L 2014 Unknown COMPREHENSIVE METABOLIC 87250 ANION GAP 7 MEQ/L 2014 Unknown GFR CALC 2423984 GFR AA >60 ML/MIN 06/01/2015 Unknown GFR CALC 6450033 GFR NON-AA >60 ML/MIN 06/01/2015 Unknown GLYCOSYLATED HEMOGLOBIN TEST 56261 A1C HPLC 97527-2 8.9 % 0 06/01/2015 Unknown GFR CALC 8884466 GFR AA >60 ML/MIN 02/25/2015 Unknown GFR CALC 8859829 GFR NON-AA >60 ML/MIN 02/25/2015 Unknown COMPREHENSIVE METABOLIC 24886 AST 24 U/L 2014 Unknown COMPREHENSIVE METABOLIC 89958 ALT 25 IU/L 2014 Unknown COMPREHENSIVE METABOLIC 25977 BUN 14 MG/DL 2014 Unknown COMPREHENSIVE METABOLIC 14682 ALBUMIN 4.5 GM/DL 2014 Unknown COMPREHENSIVE METABOLIC 82453 CHLORIDE 99 MMOL/L 2014 Unknown COMPREHENSIVE METABOLIC 39130 BILI TOT 0.5 MG/DL 2014 Unknown COMPREHENSIVE METABOLIC 75338 ALK PHOS 48 U/L 2014 Unknown COMPREHENSIVE METABOLIC 68929 SODIUM 136 MMOL/L 02/25 Unknown COMPREHENSIVE METABOLIC 52215 CREATININE 0.97 MG/DL 12/2014 Unknown COMPREHENSIVE METABOLIC 99198 CALCIUM 9.9 MG/DL 2014 Unknown COMPREHENSIVE METABOLIC 25355 POTASSIUM 4.4 MMOL/L 02/25 Unknown COMPREHENSIVE METABOLIC 92225 PROT TOT 7.1 GM/DL 2014 Unknown COMPREHENSIVE METABOLIC 75442 Glucose 171 MG/DL 2014 Unknown COMPREHENSIVE METABOLIC 56160 BICARB 25 MMOL/L 2014 Unknown COMPREHENSIVE METABOLIC 96745 ANION GAP 12 MEQ/L 2014 Unknown PROTEIN/CREAT URINE WITH RATIO 09141|92999 PROT R U 19 MG/D L 08/27/2014 Unknown PROTEIN/CREAT URINE WITH RATIO 23618|46414 CREAT R U 111 MG/ DL 08/27/2014 Unknown PROTEIN/CREAT URINE WITH RATIO 69663|42459 XRATIO P/C 171 MG /G 08/27/2014 Unknown MICROALBUMIN URINE RANDOM 73797 MICRL MG/L 34.7 MG/L 12/2013 Unknown MICROALBUMIN URINE RANDOM 43919 XM.ALB/CRE 32.7 MG/GCR 1 10/28/2013 Unknown MICROALBUMIN URINE RANDOM 22753 CREAT MG/D 106 MG/DL 12/2013 Unknown MICROALBUMIN URINE RANDOM 99466 CRE/100 1.06 G/L 12/2013 Unknown COMPLETE BLOOD COUNT [id number] WBC 7.1 10e9/L 08/05/20 14 Unknown COMPLETE BLOOD COUNT [id number] RBC 4.35 10e12/L 2013 Unknown COMPLETE BLOOD COUNT [id number] HGB 12.9 g/dL 4 Unknown COMPLETE BLOOD COUNT [id number] HCT DET 39.4 % 4 Unknown COMPLETE BLOOD COUNT 1134072 MCV 90.6 fL 4 Unknown COMPLETE BLOOD COUNT [id number] MCH 29.7 pg 4 Unknown COMPLETE BLOOD COUNT [id number] MCHC 32.7 g/dL 4 Unknown COMPLETE BLOOD COUNT [id number] PLT 240 10e9/L 08/05/20 14 Unknown COMPLETE BLOOD COUNT [id number] MPV 10.3 fL 4 Unknown COMPLETE BLOOD COUNT [id number] SUSIE % 70.0 % 4 Unknown COMPLETE BLOOD COUNT [id number] LY % 16.4 % 4 Unknown COMPLETE BLOOD COUNT [id number] MON % 9.2 % 4 Unknown COMPLETE BLOOD COUNT [id number] EOS % 3.8 % 4 Unknown COMPLETE BLOOD COUNT [id number] BASO % 0.6 % 4 Unknown COMPLETE BLOOD COUNT [id number] RDW 13.4 % 4 Unknown COMPLETE BLOOD COUNT [id number] ABS SUSIE 4.97 10e9/L 014 Unknown COMPLETE BLOOD COUNT [id number] ABS LYMPH 1.16 10e9/L 014 Unknown COMPLETE BLOOD COUNT [id number] ABS MONO 0.65 10e9/L 014 Unknown COMPLETE BLOOD COUNT [id number] ABS EOS 0.27 10e9/L 014 Unknown COMPLETE BLOOD COUNT [id number] ABS BASO 0.04 10e9/L 014 Unknown COMPLETE BLOOD COUNT [id number] RDW-SD 43.3 fL 4 Unknown FREE T4 97500 FREE T4 1.02 NG/DL 08/05/2014 Unknown GFR CALC [id number] GFR AA >60 ML/MIN 08/05/2014 Unknown GFR CALC [id number] GFR NON-AA >60 ML/MIN 08/05/2014 Unknown GLYCOSYLATED HEMOGLOBIN TEST 00592 A1C HPLC 88225-5 7.7 % 1 10/05/2013 Unknown COMPREHENSIVE METABOLIC 04965 AST 19 U/L 2013 Unknown COMPREHENSIVE METABOLIC 86170 ALT 21 IU/L 2013 Unknown COMPREHENSIVE METABOLIC 37922 BUN 25 MG/DL 2013 Unknown COMPREHENSIVE METABOLIC 22563 ALBUMIN 4.6 GM/DL 2013 Unknown COMPREHENSIVE METABOLIC 42349 CHLORIDE 103 MMOL/L 08/05 Unknown COMPREHENSIVE METABOLIC 97575 BILI TOT 0.4 MG/DL 2013 Unknown COMPREHENSIVE METABOLIC [address] ALK PHOS 45 U/L 2013 Unknown COMPREHENSIVE METABOLIC 43577 SODIUM 138 MMOL/L 08/05 Unknown COMPREHENSIVE METABOLIC 75359 CREATININE 1.01 MG/DL 07/25 Unknown COMPREHENSIVE METABOLIC 80825 CALCIUM 9.8 MG/DL 2013 Unknown COMPREHENSIVE METABOLIC 95173 POTASSIUM 4.7 MMOL/L 08/05 Unknown COMPREHENSIVE METABOLIC 88396 PROT TOT 7.0 GM/DL 2013 Unknown COMPREHENSIVE METABOLIC 57800 Glucose 145 MG/DL 2013 Unknown COMPREHENSIVE METABOLIC 24628 BICARB 27 MMOL/L 2013 Unknown COMPREHENSIVE METABOLIC 59262 ANION GAP 8 MEQ/L 2013 Unknown THYROID STIMULATING HORMONE 00601 TSH 1.922 uIU/ML 08/05/2014 Unknown LIPID GROUP 05906 HDL TEST 47 MG/DL 08/05/2014 Unknown LIPID GROUP 73539 TRIG 224 MG/DL 08/05/2014 Unknown LIPID GROUP 39149 TEST LDL 125 MG/DL 08/05/2014 Unknown LIPID GROUP 41818 CHOL 217 MG/DL 08/05/2014 Unknown LIPID GROUP 21909 RCHOL/HDL 4.62 RATIO 08/05/2014 Unknow n LIPID GROUP 63339 NON-HDL CH 170 MG/DL 08/05/2014 Unknow n MYCOPLASMA ANTIBODY, IFA [id number] MYCO G IFA 1:256 03/24 Unknown MYCOPLASMA ANTIBODY, IFA [id number] MYCO M IFA <1:10 03/24 Unknown MYCOPLASMA ANTIBODY, IFA [id number] MYCO INTER SEE BELO 03/24 Unknown COMPLETE BLOOD COUNT [id number] WBC 8.3 10e9/L 04/09/20 13 Unknown COMPLETE BLOOD COUNT [id number] RBC 4.61 10e12/L 2012 Unknown COMPLETE BLOOD COUNT 9352136 HGB 13.9 g/dL 3 Unknown COMPLETE BLOOD COUNT [id number] HCT DET 41.2 % 3 Unknown COMPLETE BLOOD COUNT [id number] MCV 89.4 fL 3 Unknown COMPLETE BLOOD COUNT 1347673 MCH 30.2 pg 3 Unknown COMPLETE BLOOD COUNT [id number] MCHC 33.7 g/dL 3 Unknown COMPLETE BLOOD COUNT [id number] PLT 249 10e9/L 04/09/20 13 Unknown COMPLETE BLOOD COUNT [id number] MPV 9.8 fL 3 Unknown COMPLETE BLOOD COUNT [id number] SUSIE % 65.9 % 3 Unknown COMPLETE BLOOD COUNT [id number] LY % 19.8 % 3 Unknown COMPLETE BLOOD COUNT [id number] MON % 10.8 % 3 Unknown COMPLETE BLOOD COUNT [id number] EOS % 3.0 % 3 Unknown COMPLETE BLOOD COUNT [id number] BASO % 0.5 % 3 Unknown COMPLETE BLOOD COUNT 8650715 RDW 14.0 % 3 Unknown COMPLETE BLOOD COUNT [id number] ABS SUSIE 5.47 10e9/L 013 Unknown COMPLETE BLOOD COUNT 8203774 ABS LYMPH 1.64 10e9/L 013 Unknown COMPLETE BLOOD COUNT [id number] ABS MONO 0.90 10e9/L 013 Unknown COMPLETE BLOOD COUNT [id number] ABS EOS 0.25 10e9/L 013 Unknown COMPLETE BLOOD COUNT [id number] ABS BASO 0.04 10e9/L 013 Unknown COMPLETE BLOOD COUNT [id number] RDW-SD 45.0 fL 3 Unknown URIC ACID 13310 URIC ACID 5.3 MG/DL 02/12/2013 Unknown FREE T4 99860 FREE T4 1.09 NG/DL 02/11/2013 Unknown COMPLETE BLOOD COUNT [id number] WBC 6.3 10e9/L 02/12/20 13 Unknown COMPLETE BLOOD COUNT [id number] RBC 4.29 10e12/L 2012 Unknown COMPLETE BLOOD COUNT 2913001 HGB 13.1 g/dL 3 Unknown COMPLETE BLOOD COUNT [id number] HCT DET 39.7 % 3 Unknown COMPLETE BLOOD COUNT 8298261 MCV 92.5 fL 3 Unknown COMPLETE BLOOD COUNT 4675017 MCH 30.5 pg 3 Unknown COMPLETE BLOOD COUNT 4797719 MCHC 33.0 g/dL 3 Unknown COMPLETE BLOOD COUNT [id number] PLT 247 10e9/L 02/12/20 13 Unknown COMPLETE BLOOD COUNT [id number] MPV 10.0 fL 3 Unknown COMPLETE BLOOD COUNT 8862764 SUSIE % 73.4 % 3 Unknown COMPLETE BLOOD COUNT [id number] LY % 13.5 % 3 Unknown COMPLETE BLOOD COUNT 7415706 MON % 9.4 % 3 Unknown COMPLETE BLOOD COUNT [id number] EOS % 2.9 % 3 Unknown COMPLETE BLOOD COUNT [id number] BASO % 0.8 % 3 Unknown COMPLETE BLOOD COUNT 0872159 RDW 13.8 % 3 Unknown COMPLETE BLOOD COUNT [id number] ABS SUSIE 4.62 10e9/L 013 Unknown COMPLETE BLOOD COUNT [id number] ABS LYMPH 0.85 10e9/L 013 Unknown COMPLETE BLOOD COUNT [id number] ABS MONO 0.59 10e9/L 013 Unknown COMPLETE BLOOD COUNT [id number] ABS EOS 0.18 10e9/L 013 Unknown COMPLETE BLOOD COUNT [id number] ABS BASO 0.05 10e9/L 013 Unknown COMPLETE BLOOD COUNT [id number] RDW-SD 45.7 fL 3 Unknown HEMOGLOBIN A1C (GLYCOSYLATED) 8001722 A1C HPLC 01145-4 7.5 % 02/11/2013 Unknown THYROID STIMULATING HORMONE 52439 TSH 1.466 uIU/ML 02/11/2013 Unknown VITAMIN B 12 FOLIC ACID 21879|06718 VIT B 12 625 PG/ML 01/23 Unknown VITAMIN B 12 FOLIC ACID 99478|82068 FOLIC ACID 15.6 NG/ML Unknown COMPREHENSIVE METABOLIC 74964 AST 18 U/L 2012 Unknown COMPREHENSIVE METABOLIC 54040 ALT 21 IU/L 2012 Unknown COMPREHENSIVE METABOLIC 30634 BUN 25 MG/DL 2012 Unknown COMPREHENSIVE METABOLIC 65168 ALBUMIN 4.6 GM/DL 2012 Unknown COMPREHENSIVE METABOLIC 55485 CHLORIDE 103 MMOL/L 02/11 Unknown COMPREHENSIVE METABOLIC 17832 BILI TOT 0.3 MG/DL 2012 Unknown COMPREHENSIVE METABOLIC 83117 ALK PHOS 53 U/L 2012 Unknown COMPREHENSIVE METABOLIC 04641 SODIUM 136 MMOL/L 02/11 Unknown COMPREHENSIVE METABOLIC 63497 CREATININE 1.16 MG/DL 01/23 Unknown COMPREHENSIVE METABOLIC 06563 CALCIUM 10.0 MG/DL 02/11 Unknown COMPREHENSIVE METABOLIC 06970 POTASSIUM 4.9 MMOL/L 02/11 Unknown COMPREHENSIVE METABOLIC 92387 PROT TOT 7.0 GM/DL 2012 Unknown COMPREHENSIVE METABOLIC 82294 Glucose 192 MG/DL 2012 Unknown COMPREHENSIVE METABOLIC 56619 BICARB 26 MMOL/L 2012 Unknown COMPREHENSIVE METABOLIC 60652 ANION GAP 7 MEQ/L 2012 Unknown GFR CALC 8622177 GFR AA >60 ML/MIN 02/11/2013 Unknown GFR CALC 4475315 GFR NON-AA >60 ML/MIN 02/11/2013 Unknown C-REACTIVE PROTEIN (CRP) QUANT 08211 CRP 2.7 MG/DL 02/11/2013 Unknown GFR CALC 7862022 GFR AA >60 ML/MIN 09/19/2012 Unknown GFR CALC 3977372 GFR NON-AA >60 ML/MIN 09/19/2012 Unknown HEMOGLOBIN A1C (GLYCOSYLATED) 3283510 A1C HPLC 61180-9 7.2 % 09/19/2012 Unknown COMPREHENSIVE METABOLIC 65856 AST 13 U/L 2011 Unknown COMPREHENSIVE METABOLIC 41061 ALT 17 IU/L 2011 Unknown COMPREHENSIVE METABOLIC 97234 BUN 25 MG/DL 2011 Unknown COMPREHENSIVE METABOLIC 12990 ALBUMIN 4.5 GM/DL 2011 Unknown COMPREHENSIVE METABOLIC 44718 CHLORIDE 104 MMOL/L 09/19 Unknown COMPREHENSIVE METABOLIC 51387 BILI TOT 0.3 MG/DL 2011 Unknown COMPREHENSIVE METABOLIC 51403 ALK PHOS 43 U/L 2011 Unknown COMPREHENSIVE METABOLIC 33209 SODIUM 139 MMOL/L 09/19 Unknown COMPREHENSIVE METABOLIC 51832 CREATININE 1.10 MG/DL 08/25 Unknown COMPREHENSIVE METABOLIC 65977 CALCIUM 9.8 MG/DL 2011 Unknown COMPREHENSIVE METABOLIC 68829 POTASSIUM 4.8 MMOL/L 09/19 Unknown COMPREHENSIVE METABOLIC 72544 PROT TOT 6.5 GM/DL 2011 Unknown COMPREHENSIVE METABOLIC 28295 Glucose 148 MG/DL 2011 Unknown COMPREHENSIVE METABOLIC 28153 BICARB 25 MMOL/L 2011 Unknown COMPREHENSIVE METABOLIC 94977 ANION GAP 10 MEQ/L 2011 Unknown LIPID GROUP 85218 HDL TEST 44 MG/DL 09/19/2012 Unknown LIPID GROUP 55204 TRIG 318 MG/DL 09/19/2012 Unknown LIPID GROUP 20489 TEST LDL 100 MG/DL 09/19/2012 Unknown LIPID GROUP 19225 CHOL 208 MG/DL 09/19/2012 Unknown LIPID GROUP 75028 RCHOL/HDL 4.73 RATIO 09/19/2012 Unknow n FREE T4 24783 FREE T4 0.87 NG/DL 05/06/2012 Unknown GLYCOSYLATED HEMOGLOBIN TEST 44184 A1C HPLC 93268-4 6.4 % 0 05/06/2012 Unknown LIPID GROUP 84094 HDL TEST 44 MG/DL 05/06/2012 Unknown LIPID GROUP 76450 TRIG 177 MG/DL 05/06/2012 Unknown LIPID GROUP 00062 TEST LDL 113 MG/DL 05/06/2012 Unknown LIPID GROUP 07925 CHOL 192 MG/DL 05/06/2012 Unknown LIPID GROUP 47938 RCHOL/HDL 4.36 RATIO 05/06/2012 Unknow n THYROID STIMULATING HORMONE 11552 TSH 1.151 uIU/ML 05/06/2012 Unknown COMPLETE BLOOD COUNT 08329 WBC 7.8 10e9/L 05/06/20 12 Unknown COMPLETE BLOOD COUNT 71507 RBC 4.31 10e12/L 2011 Unknown COMPLETE BLOOD COUNT 26367 HGB 12.8 g/dL 2 Unknown COMPLETE BLOOD COUNT 73300 HCT DET 39.1 % 2 Unknown COMPLETE BLOOD COUNT 35057 MCV 90.7 fL 2 Unknown COMPLETE BLOOD COUNT 83147 MCH 29.7 pg 2 Unknown COMPLETE BLOOD COUNT 56700 MCHC 32.7 g/dL 2 Unknown COMPLETE BLOOD COUNT 47916 PLT 207 10e9/L 05/06/20 12 Unknown COMPLETE BLOOD COUNT 10117 MPV 10.2 fL 2 Unknown COMPLETE BLOOD COUNT 50978 SUSIE % 74.2 % 2 Unknown COMPLETE BLOOD COUNT 68908 LY % 12.8 % 2 Unknown COMPLETE BLOOD COUNT 64381 MON % 11.0 % 2 Unknown COMPLETE BLOOD COUNT 00228 EOS % 1.7 % 2 Unknown COMPLETE BLOOD COUNT 15054 BASO % 0.3 % 2 Unknown COMPLETE BLOOD COUNT 27198 RDW 13.7 % 2 Unknown COMPLETE BLOOD COUNT 88105 ABS SUSIE 5.79 10e9/L 012 Unknown COMPLETE BLOOD COUNT 67841 ABS LYMPH 1.00 10e9/L 012 Unknown COMPLETE BLOOD COUNT 25043 ABS MONO 0.86 10e9/L 012 Unknown COMPLETE BLOOD COUNT 24927 ABS EOS 0.13 10e9/L 012 Unknown COMPLETE BLOOD COUNT 28311 ABS BASO 0.02 10e9/L 012 Unknown COMPLETE BLOOD COUNT 31154 RDW-SD 44.4 fL 2 Unknown COMPREHENSIVE METABOLIC 70080 AST 13 U/L 2011 Unknown COMPREHENSIVE METABOLIC 07807 ALT 14 IU/L 2011 Unknown COMPREHENSIVE METABOLIC 16592 BUN 17 MG/DL 2011 Unknown COMPREHENSIVE METABOLIC 57992 ALBUMIN 4.5 GM/DL 2011 Unknown COMPREHENSIVE METABOLIC 87238 CHLORIDE 101 MMOL/L 05/06 Unknown COMPREHENSIVE METABOLIC 82439 BILI TOT 0.5 MG/DL 2011 Unknown COMPREHENSIVE METABOLIC 90329 ALK PHOS 42 U/L 2011 Unknown COMPREHENSIVE METABOLIC 18579 SODIUM 141 MMOL/L 05/06 Unknown COMPREHENSIVE METABOLIC 50205 CREATININE 1.02 MG/DL 04/24 Unknown COMPREHENSIVE METABOLIC 72686 CALCIUM 9.7 MG/DL 2011 Unknown COMPREHENSIVE METABOLIC 38227 POTASSIUM 4.6 MMOL/L 05/06 Unknown COMPREHENSIVE METABOLIC 31734 PROT TOT 6.5 GM/DL 2011 Unknown COMPREHENSIVE METABOLIC 76030 Glucose 139 MG/DL 2011 Unknown COMPREHENSIVE METABOLIC 16762 BICARB 29 MMOL/L 2011 Unknown COMPREHENSIVE METABOLIC 82255 ANION GAP 11 MEQ/L 2011 Unknown GFR CALC 9645720 GFR AA >60 ML/MIN 05/06/2012 Unknown GFR CALC 8593335 GFR NON-AA 54.0L ML/MIN 05/06/2012 Unkno wn GLYCOSYLATED HEMOGLOBIN TEST 93479 A1C HPLC 96807-4 6.6 % 1 09/30/2010 Unknown FREE T4 49772 FREE T4 1.00 NG/DL 07/26/2011 Unknown LIPID GROUP 31970 HDL TEST 40 MG/DL 07/26/2011 Unknown LIPID GROUP 60077 TRIG 136 MG/DL 07/26/2011 Unknown LIPID GROUP 04494 TEST LDL 126 MG/DL 07/26/2011 Unknown LIPID GROUP 60554 CHOL 193 MG/DL 07/26/2011 Unknown LIPID GROUP 46792 RCHOL/HDL 4.83 RATIO 07/26/2011 Unknow n COMPREHENSIVE METABOLIC 58014 AST 15 U/L 2010 Unknown COMPREHENSIVE METABOLIC 83827 ALT 13 IU/L 2010 Unknown COMPREHENSIVE METABOLIC 25330 BUN 17 MG/DL 2010 Unknown COMPREHENSIVE METABOLIC 00320 ALBUMIN 4.4 GM/DL 2010 Unknown COMPREHENSIVE METABOLIC 68175 CHLORIDE 102 MMOL/L 07/26 Unknown COMPREHENSIVE METABOLIC 81597 BILI TOT 0.5 MG/DL 2010 Unknown COMPREHENSIVE METABOLIC 03298 ALK PHOS 54 U/L 2010 Unknown COMPREHENSIVE METABOLIC 13790 SODIUM 138 MMOL/L 07/26 Unknown COMPREHENSIVE METABOLIC 70623 CREATININE 0.95 MG/DL 10/2010 Unknown COMPREHENSIVE METABOLIC 94346 CALCIUM 9.3 MG/DL 2010 Unknown COMPREHENSIVE METABOLIC 23253 POTASSIUM 4.3 MMOL/L 07/26 Unknown COMPREHENSIVE METABOLIC 01442 PROT TOT 6.7 GM/DL 2010 Unknown COMPREHENSIVE METABOLIC 67962 Glucose 116 MG/DL 2010 Unknown COMPREHENSIVE METABOLIC 89311 BICARB 28 MMOL/L 2010 Unknown COMPREHENSIVE METABOLIC 64839 ANION GAP 8 MEQ/L 2010 Unknown PSA EQUIMOLAR JONATAN 05275 PSA EQ 1.01 NG/ML 1 Unknown COMPLETE BLOOD COUNT 65672 WBC 6.4 10e9/L 07/26/20 11 Unknown COMPLETE BLOOD COUNT 74256 RBC 4.43 10e12/L 2010 Unknown COMPLETE BLOOD COUNT 78611 HGB 13.2 g/dL 1 Unknown COMPLETE BLOOD COUNT 59525 HCT DET 39.3 % 1 Unknown COMPLETE BLOOD COUNT 28657 MCV 88.7 fL 1 Unknown COMPLETE BLOOD COUNT 53019 MCH 29.8 pg 1 Unknown COMPLETE BLOOD COUNT 52504 MCHC 33.6 g/dL 1 Unknown COMPLETE BLOOD COUNT 64762 PLT 226 10e9/L 07/26/20 11 Unknown COMPLETE BLOOD COUNT 79201 MPV 9.9 fL 1 Unknown COMPLETE BLOOD COUNT 16859 SUSIE % 65.4 % 1 Unknown COMPLETE BLOOD COUNT 49612 LY % 19.7 % 1 Unknown COMPLETE BLOOD COUNT 31322 MON % 10.8 % 1 Unknown COMPLETE BLOOD COUNT 43532 EOS % 3.6 % 1 Unknown COMPLETE BLOOD COUNT 66165 BASO % 0.5 % 1 Unknown COMPLETE BLOOD COUNT 84787 RDW 13.2 % 1 Unknown COMPLETE BLOOD COUNT 00402 ABS SUSIE 4.19 10e9/L 011 Unknown COMPLETE BLOOD COUNT 43882 ABS LYMPH 1.26 10e9/L 011 Unknown COMPLETE BLOOD COUNT 07838 ABS MONO 0.69 10e9/L 011 Unknown COMPLETE BLOOD COUNT 67470 ABS EOS 0.23 10e9/L 011 Unknown COMPLETE BLOOD COUNT 57284 ABS BASO 0.03 10e9/L 011 Unknown COMPLETE BLOOD COUNT 01702 RDW-SD 41.7 fL 1 Unknown THYROID STIMULATING HORMONE 84681 TSH 1.345 uIU/ML 07/26/2011 Unknown GFR CALC 0718036 GFR AA >60 ML/MIN 07/26/2011 Unknown GFR CALC 5978599 GFR NON-AA >60 ML/MIN 07/26/2011 Unknown BRAIN NATRIURETIC PEPTIDE(BNP) 44222 BRAIN PEP 23 pg/mL 01/19/2011 Unknown CANCEL 2762502 CANCEL FOOTNOTE 01/18/2011 Unknown TESTOSTERONE TOTAL 34874 TESTOS TO 138 NG/DL 12/19/2010 Unknown COMPLETE BLOOD COUNT 74291 WBC 8.4 10e9/L 12/08/19 11 Unknown COMPLETE BLOOD COUNT 50448 RBC 4.40 10e12/L 2010 Unknown COMPLETE BLOOD COUNT 73920 HGB 13.3 g/dL 1 Unknown COMPLETE BLOOD COUNT 60047 HCT DET 39.8 % 1 Unknown COMPLETE BLOOD COUNT 41962 MCV 90.5 fL 1 Unknown COMPLETE BLOOD COUNT 02541 MCH 30.2 pg 1 Unknown COMPLETE BLOOD COUNT 89922 MCHC 33.4 g/dL 1 Unknown COMPLETE BLOOD COUNT 46034 PLT 201 10e9/L 12/08/19 11 Unknown COMPLETE BLOOD COUNT 24052 MPV 10.6 fL 1 Unknown COMPLETE BLOOD COUNT 71579 SUSIE % 72.5 % 1 Unknown COMPLETE BLOOD COUNT 79048 LY % 14.8 % 1 Unknown COMPLETE BLOOD COUNT 10214 MON % 10.6 % 1 Unknown COMPLETE BLOOD COUNT 74719 EOS % 1.7 % 1 Unknown COMPLETE BLOOD COUNT 55354 BASO % 0.4 % 1 Unknown COMPLETE BLOOD COUNT 14377 RDW 13.7 % 1 Unknown COMPLETE BLOOD COUNT 05305 ABS SUSIE 6.09 10e9/L 011 Unknown COMPLETE BLOOD COUNT 23338 ABS LYMPH 1.24 10e9/L 011 Unknown COMPLETE BLOOD COUNT 91845 ABS MONO 0.89 10e9/L 011 Unknown COMPLETE BLOOD COUNT 87765 ABS EOS 0.14 10e9/L 011 Unknown COMPLETE BLOOD COUNT 97432 ABS BASO 0.03 10e9/L 011 Unknown COMPLETE BLOOD COUNT 15472 RDW-SD 44.0 fL 1 Unknown LIPID GROUP 87444 HDL TEST 40 MG/DL 12/07/2010 Unknown LIPID GROUP 79987 TRIG 383 MG/DL 12/07/2010 Unknown LIPID GROUP 55365 TEST LDL 82 MG/DL 12/07/2010 Unknown LIPID GROUP 19077 CHOL 199 MG/DL 12/07/2010 Unknown LIPID GROUP 51648 RCHOL/HDL 4.98 RATIO 12/07/2010 Unknow n GFR CALC 5458321 GFR AA >60 ML/MIN 12/07/2010 Unknown GFR CALC 7219011 GFR NON-AA >60 ML/MIN 12/07/2010 Unknown COMPREHENSIVE METABOLIC 76438 AST 29 U/L 2010 Unknown COMPREHENSIVE METABOLIC 80879 ALT 39 IU/L 2010 Unknown COMPREHENSIVE METABOLIC 95625 BUN 17 MG/DL 2010 Unknown COMPREHENSIVE METABOLIC 75026 ALBUMIN 4.9 GM/DL 2010 Unknown COMPREHENSIVE METABOLIC 72417 CHLORIDE 100 MMOL/L 12/07 Unknown COMPREHENSIVE METABOLIC 47218 BILI TOT 0.3 MG/DL 2010 Unknown COMPREHENSIVE METABOLIC 96646 ALK PHOS 53 U/L 2010 Unknown COMPREHENSIVE METABOLIC 50142 SODIUM 137 MMOL/L 12/07 Unknown COMPREHENSIVE METABOLIC 92380 CREATININE 0.98 MG/DL 11/22 Unknown COMPREHENSIVE METABOLIC 31213 CALCIUM 9.5 MG/DL 2010 Unknown COMPREHENSIVE METABOLIC 32006 POTASSIUM 4.3 MMOL/L 12/07 Unknown COMPREHENSIVE METABOLIC 20528 PROT TOT 6.6 GM/DL 2010 Unknown COMPREHENSIVE METABOLIC 26590 Glucose 176 MG/DL 2010 Unknown COMPREHENSIVE METABOLIC 18752 BICARB 28 MMOL/L 2010 Unknown COMPREHENSIVE METABOLIC 79476 ANION GAP 9 MEQ/L 2010 Unknown PSA EQUIMOLAR JONATAN 12615 PSA EQ 0.65 NG/ML 1 Unknown HEMOGLOBIN A1C (GLYCOSYLATED) 30434 A1C HPLC 46450-5 6.9 % 12/07/2010 Unknown Procedures Procedure Codes Date FLU VACC PRSV FREE INC ANTIG 65 AND OLDER CPT-4: 65819 08/07/2019 FLU VACC PRSV FREE INC ANTIG 65 AND OLDER CPT-4: 27187 08/07/2019 ADMIN INFLUENZA VIRUS VAC CPT-4: G0008 08/07/2019 THER/PROPH/DIAG INJ SC/IM CPT-4: 24059 07/14/2019 METHYLPREDNISOLONE INJECTION CPT-4: J2930 07/14/2019 ROUTINE VENIPUNCTURE CPT-4: 33621 06/17/2019 ASSAY THYROID STIM HORMONE CPT-4: 21723 06/17/2019 COMPREHEN METABOLIC PANEL CPT-4: 60812 06/17/2019 COMPLETE CBC W/AUTO DIFF WBC CPT-4: 38055 06/17/2019 ASSAY OF IRON CPT-4: 69308 06/17/2019 VITAMIN B-12 CPT-4: 56518 06/17/2019 RBC SED RATE AUTOMATED CPT-4: 41777 06/17/2019 THER/PROPH/DIAG INJ SC/IM CPT-4: 77383 06/10/2019 THER/PROPH/DIAG INJ SC/IM CPT-4: 58200 06/02/2019 THER/PROPH/DIAG INJ SC/IM CPT-4: 62705 05/27/2019 THER/PROPH/DIAG INJ SC/IM CPT-4: 92423 05/12/2019 ROUTINE VENIPUNCTURE CPT-4: 25310 05/08/2019 COMPREHEN METABOLIC PANEL CPT-4: 80264 05/08/2019 COMPLETE CBC W/AUTO DIFF WBC CPT-4: 50535 05/08/2019 A1C HPLC CPT-4: 65604 05/08/2019 VITAMIN D TOTAL (25 HYDROXY) CPT-4: 84393 05/08/2019 ASSAY OF IRON CPT-4: 74310 05/08/2019 ASSAY OF FERRITIN CPT-4: 25083 05/08/2019 VITAMIN B-12 CPT-4: 81274 05/08/2019 THER/PROPH/DIAG INJ SC/IM CPT-4: 41452 03/21/2019 METHYLPREDNISOLONE INJECTION CPT-4: J2930 03/21/2019 THER/PROPH/DIAG INJ SC/IM CPT-4: 31623 03/13/2019 METHYLPREDNISOLONE INJECTION CPT-4: J2930 03/13/2019 THER/PROPH/DIAG INJ SC/IM CPT-4: 74057 12/25/2018 METHYLPREDNISOLONE INJECTION CPT-4: J2930 12/25/2018 ROUTINE VENIPUNCTURE CPT-4: 22922 12/09/2018 ASSAY OF FREE THYROXINE CPT-4: 09749 12/09/2018 ASSAY THYROID STIM HORMONE CPT-4: 26833 12/09/2018 COMPREHEN METABOLIC PANEL CPT-4: 22221 12/09/2018 COMPLETE CBC W/AUTO DIFF WBC CPT-4: 57715 12/09/2018 LIPID PANEL CPT-4: 26703 12/09/2018 A1C HPLC CPT-4: 68372 12/09/2018 PRESCRIP TRANSMIT VIA ERX SY CPT-4: G8553 08/21/2018 PRESCRIP TRANSMIT VIA ERX SY CPT-4: G8553 08/07/2018 THER/PROPH/DIAG INJ SC/IM CPT-4: 94042 05/23/2018 METHYLPREDNISOLONE INJECTION CPT-4: J2930 05/23/2018 PRESCRIP TRANSMIT VIA ERX SY CPT-4: G8553 05/02/2018 THER/PROPH/DIAG INJ SC/IM CPT-4: 31763 04/29/2018 METHYLPREDNISOLONE INJECTION CPT-4: J2930 04/29/2018 DEXAMETHASONE SODIUM PHOS CPT-4: J1100 04/22/2018 THER/PROPH/DIAG INJ SC/IM CPT-4: 17613 04/22/2018 TRIAMCINOLONE ACET INJ NOS CPT-4: J3301 04/22/2018 PRESCRIP TRANSMIT VIA ERX SY CPT-4: G8553 04/22/2018 PRESCRIP TRANSMIT VIA ERX SY CPT-4: G8553 01/23/2018 URINALYSIS NONAUTO W/O SCOPE CPT-4: 37115 01/02/2018 URINE CULTURE/ COLONY COUNT CPT-4: 99304 01/02/2018 PRESCRIP TRANSMIT VIA ERX SY CPT-4: G8553 01/02/2018 PRESCRIP TRANSMIT VIA ERX SY CPT-4: G8553 12/28/2017 PRESCRIP TRANSMIT VIA ERX SY CPT-4: G8553 12/21/2017 CEFTRIAXONE SODIUM INJECTION CPT-4: J0696 12/17/2017 THER/PROPH/DIAG INJ SC/IM CPT-4: 52929 12/17/2017 THER/PROPH/DIAG INJ SC/IM CPT-4: 40586 12/17/2017 TRIAMCINOLONE ACET INJ NOS CPT-4: J3301 12/17/2017 PRESCRIP TRANSMIT VIA ERX SY CPT-4: G8553 12/17/2017 DRAIN/INJECT JOINT/BURSA CPT-4: 93382 12/11/2017 TRIAMCINOLONE ACET INJ NOS CPT-4: J3301 12/11/2017 DEXAMETHASONE SODIUM PHOS CPT-4: J1100 12/11/2017 DESTRUCT PREMALG LESION (Cryosurgery) CPT-4: 00599 PRESCRIP TRANSMIT VIA ERX SY CPT-4: G8553 10/17/2017 DEXAMETHASONE SODIUM PHOS CPT-4: J1100 08/02/2017 THER/PROPH/DIAG INJ SC/IM CPT-4: 42068 08/02/2017 TRIAMCINOLONE ACET INJ NOS CPT-4: J3301 08/02/2017 PRESCRIP TRANSMIT VIA ERX SY CPT-4: G8553 08/02/2017 PNEUMOCOCCAL VACC 23 OLIVIA IM CPT-4: 01551 07/24/2017 ADMIN PNEUMOCOCCAL VACCINE CPT-4: G0009 07/24/2017 ALBUTEROL NON-COMP UNIT CPT-4: J7613 07/02/2017 AIRWAY INHALATION TREATMENT CPT-4: 84957 07/02/2017 THER/PROPH/DIAG INJ SC/IM CPT-4: 43524 07/02/2017 METHYLPREDNISOLONE INJECTION CPT-4: J2930 07/02/2017 PRESCRIP TRANSMIT VIA ERX SY CPT-4: G8553 05/29/2017 ROUTINE VENIPUNCTURE CPT-4: 96714 04/17/2017 ASSAY OF IRON CPT-4: 93708 04/17/2017 VITAMIN B-12 CPT-4: 63348 04/17/2017 COMPREHEN METABOLIC PANEL CPT-4: 78306 04/17/2017 COMPLETE CBC W/AUTO DIFF WBC CPT-4: 82681 04/17/2017 ASSAY OF FERRITIN CPT-4: 59319 04/17/2017 ASSAY THYROID STIM HORMONE CPT-4: 37632 04/17/2017 A1C HPLC CPT-4: 73045 04/17/2017 DRAIN/INJECT JOINT/BURSA CPT-4: 76149 02/01/2017 TRIAMCINOLONE ACET INJ NOS CPT-4: J3301 02/01/2017 DEXAMETHASONE SODIUM PHOS CPT-4: J1100 02/01/2017 ROUTINE VENIPUNCTURE CPT-4: 14554 12/27/2016 COMPLETE CBC W/AUTO DIFF WBC CPT-4: 90596 12/27/2016 ROUTINE VENIPUNCTURE CPT-4: 98860 12/21/2016 COMPLETE CBC W/AUTO DIFF WBC CPT-4: 28273 12/21/2016 ROUTINE VENIPUNCTURE CPT-4: 40789 12/12/2016 COMPLETE CBC W/AUTO DIFF WBC CPT-4: 38402 12/12/2016 PRESCRIP TRANSMIT VIA ERX SY CPT-4: G8553 10/31/2016 PRESCRIP TRANSMIT VIA ERX SY CPT-4: G8553 10/03/2016 PRESCRIP TRANSMIT VIA ERX SY CPT-4: G8553 09/04/2016 DESTRUCT PREMALG LESION (Cryosurgery) CPT-4: 50541 DESTRUCT PREMALG LES 2-14 CPT-4: 58093 08/22/2016 PRESCRIP TRANSMIT VIA ERX SY CPT-4: G8553 08/10/2016 PRESCRIP TRANSMIT VIA ERX SY CPT-4: G8553 07/06/2016 FLU VACC PRSV FREE INC ANTIG 65 AND OLDER CPT-4: 02245 06/13/2016 PNEUMOCOCCAL VACC 13 OLIVIA IM CPT-4: 26253 06/13/2016 ADMIN INFLUENZA VIRUS VAC CPT-4: G0008 06/13/2016 ADMIN PNEUMOCOCCAL VACCINE CPT-4: G0009 06/13/2016 CERUM REMOVAL CPT-4: 38531 04/05/2016 PRESCRIP TRANSMIT VIA ERX SY CPT-4: G8553 04/03/2016 ROUTINE VENIPUNCTURE CPT-4: 58684 03/06/2016 ASSAY OF FREE THYROXINE CPT-4: 90633 03/06/2016 ASSAY THYROID STIM HORMONE CPT-4: 90944 03/06/2016 COMPREHEN METABOLIC PANEL CPT-4: 97841 03/06/2016 COMPLETE CBC W/AUTO DIFF WBC CPT-4: 69851 03/06/2016 LIPID PANEL CPT-4: 06221 03/06/2016 ASSAY OF PSA TOTAL CPT-4: 19049 03/06/2016 TESTOSTERONE TOTAL - MALE CPT-4: 62712 03/06/2016 A1C HPLC CPT-4: 89240 03/06/2016 ASSAY OF IRON CPT-4: 87323 03/06/2016 VITAMIN B-12 CPT-4: 74108 03/06/2016 INJ TENDON SHEATH/LIGAMENT CPT-4: 39549 02/17/2016 TRIAMCINOLONE ACET INJ NOS CPT-4: J3301 02/17/2016 DEXAMETHASONE SODIUM PHOS CPT-4: J1100 02/17/2016 PRESCRIP TRANSMIT VIA ERX SY CPT-4: G8553 01/31/2016 PRESCRIP TRANSMIT VIA ERX SY CPT-4: G8553 12/30/2015 PRESCRIP TRANSMIT VIA ERX SY CPT-4: G8553 12/06/2015 PRESCRIP TRANSMIT VIA ERX SY CPT-4: G8553 11/15/2015 PPPS, subseq visit CPT-4: G0439 10/05/2015 MICROALBUMIN QUANTITATIVE CPT-4: 11908 10/05/2015 PROTEIN/CREAT URINE WITH RATIO CPT-4: 88289|75782 6 ROUTINE VENIPUNCTURE CPT-4: 36515 07/01/2015 ASSAY OF FREE THYROXINE CPT-4: 94205 07/01/2015 ASSAY THYROID STIM HORMONE CPT-4: 44033 07/01/2015 COMPLETE CBC W/AUTO DIFF WBC CPT-4: 86438 07/01/2015 LIPID PANEL CPT-4: 48007 07/01/2015 ASSAY OF PSA TOTAL CPT-4: 60503 07/01/2015 AEROBIC WOUND CULTURE & STN CPT-4: 13776 06/28/2015 PRESCRIP TRANSMIT VIA ERX SY CPT-4: G8553 06/28/2015 AEROBIC WOUND CULTURE & STN CPT-4: 45294 06/03/2015 PRESCRIP TRANSMIT VIA ERX SY CPT-4: G8553 06/03/2015 ROUTINE VENIPUNCTURE CPT-4: 72785 06/01/2015 COMPREHEN METABOLIC PANEL CPT-4: 12133 06/01/2015 A1C HPLC CPT-4: 74912 06/01/2015 COMPREHEN METABOLIC PANEL CPT-4: 76672 02/25/2015 A1C HPLC CPT-4: 46036 02/25/2015 DESTRUCT PREMALG LESION (Cryosurgery) CPT-4: 36163 PROTEIN/CREAT URINE WITH RATIO CPT-4: 05598|01378 5 MICROALBUMIN QUANTITATIVE CPT-4: 23062 10/27/2014 INFLUENZA ASSAY W/OPTIC CPT-4: 90783 10/21/2014 PRESCRIP TRANSMIT VIA ERX SY CPT-4: G8553 10/06/2014 PRESCRIP TRANSMIT VIA ERX SY CPT-4: G8553 09/21/2014 PRESCRIP TRANSMIT VIA ERX SY CPT-4: G8553 09/02/2014 MICROALBUMIN QUANTITATIVE CPT-4: 43613 08/27/2014 PROTEIN/CREAT URINE WITH RATIO CPT-4: 51857|40926 4 PPPS, subseq visit CPT-4: G0439 08/10/2014 ROUTINE VENIPUNCTURE CPT-4: 94431 08/05/2014 ASSAY OF FREE THYROXINE CPT-4: 80219 08/05/2014 ASSAY THYROID STIM HORMONE CPT-4: 81058 08/05/2014 COMPREHEN METABOLIC PANEL CPT-4: 07634 08/05/2014 COMPLETE CBC W/AUTO DIFF WBC CPT-4: 62834 08/05/2014 LIPID PANEL CPT-4: 20806 08/05/2014 A1C HPLC CPT-4: 69664 08/05/2014 FLUZONE, 5ML (Medicare) CPT-4: Q2038 08/05/2014 ADMIN INFLUENZA VIRUS VAC CPT-4: G0008 08/05/2014 METHYLPREDNISOLONE 40 MG INJ CPT-4: J1030 12/16/2013 TRIAMCINOLONE ACET INJ NOS CPT-4: J3301 12/16/2013 DRAIN/INJECT JOINT/BURSA CPT-4: 52286 12/16/2013 PRESCRIP TRANSMIT VIA ERX SY CPT-4: G8553 10/09/2013 THER/PROPH/DIAG INJ SC/IM CPT-4: 03344 09/18/2013 METHYLPREDNISOLONE 40 MG INJ CPT-4: J1030 09/18/2013 TRIAMCINOLONE ACET INJ NOS CPT-4: J3301 09/18/2013 PRESCRIP TRANSMIT VIA ERX SY CPT-4: G8553 09/18/2013 PRESCRIP TRANSMIT VIA ERX SY CPT-4: G8553 08/13/2013 ROUTINE VENIPUNCTURE CPT-4: 85664 06/25/2013 ASSAY OF FREE THYROXINE CPT-4: 47820 06/25/2013 ASSAY THYROID STIM HORMONE CPT-4: 78197 06/25/2013 COMPREHEN METABOLIC PANEL CPT-4: 14238 06/25/2013 COMPLETE CBC W/AUTO DIFF WBC CPT-4: 79555 06/25/2013 LIPID PANEL CPT-4: 99977 06/25/2013 A1C GLYCOSYLATED HEMOGLOBIN TEST CPT-4: 93163 013 ROUTINE VENIPUNCTURE CPT-4: 47354 04/09/2013 COMPLETE CBC W/AUTO DIFF WBC CPT-4: 30310 04/09/2013 MYCOPLASMA ANTIBODY, IFA CPT-4: 58378E0 04/09/2013 ROUTINE VENIPUNCTURE CPT-4: 80492 02/11/2013 ASSAY OF FREE THYROXINE CPT-4: 00738 02/11/2013 ASSAY THYROID STIM HORMONE CPT-4: 21051 02/11/2013 COMPREHEN METABOLIC PANEL CPT-4: 63571 02/11/2013 COMPLETE CBC W/AUTO DIFF WBC CPT-4: 90081 02/11/2013 VITAMIN B 12 FOLIC ACID CPT-4: 11450|86660 02/11/2013 C-REACTIVE PROTEIN CPT-4: 07680 02/11/2013 A1C GLYCOSYLATED HEMOGLOBIN TEST CPT-4: 11724 013 ASSAY OF BLOOD/URIC ACID CPT-4: 79303 02/11/2013 CEFTRIAXONE SODIUM INJECTION CPT-4: J0696 01/31/2013 THER/PROPH/DIAG INJ SC/IM CPT-4: 59029 01/31/2013 THER/PROPH/DIAG INJ SC/IM CPT-4: 39972 01/31/2013 METHYLPREDNISOLONE 40 MG INJ CPT-4: J1030 01/31/2013 TRIAMCINOLONE ACET INJ NOS CPT-4: J3301 01/31/2013 ROUTINE VENIPUNCTURE CPT-4: 50760 09/19/2012 COMPREHEN METABOLIC PANEL CPT-4: 99761 09/19/2012 LIPID PANEL CPT-4: 19976 09/19/2012 A1C GLYCOSYLATED HEMOGLOBIN TEST CPT-4: 40202 012 PNEUMOCOCCAL VACC 23 OLIVIA IM CPT-4: 06047 07/10/2012 FLUZONE, 5ML (Medicare) CPT-4: Q2038 07/10/2012 ADMIN INFLUENZA VIRUS VAC CPT-4: G0008 07/10/2012 ADMIN PNEUMOCOCCAL VACCINE CPT-4: G0009 07/10/2012 ROUTINE VENIPUNCTURE CPT-4: 34136 05/06/2012 ASSAY OF FREE THYROXINE CPT-4: 72152 05/06/2012 ASSAY THYROID STIM HORMONE CPT-4: 05833 05/06/2012 COMPREHEN METABOLIC PANEL CPT-4: 70768 05/06/2012 COMPLETE CBC W/AUTO DIFF WBC CPT-4: 58418 05/06/2012 LIPID PANEL CPT-4: 49987 05/06/2012 A1C GLYCOSYLATED HEMOGLOBIN TEST CPT-4: 01369 012 IMMUNIZATION ADMIN CPT-4: 37557 02/05/2012 FLUZONE, 5ML (Medicare) CPT-4: Q2038 08/10/2011 ADMIN INFLUENZA VIRUS VAC CPT-4: G0008 08/10/2011 ROUTINE VENIPUNCTURE CPT-4: 15070 07/26/2011 ASSAY OF FREE THYROXINE CPT-4: 42899 07/26/2011 ASSAY THYROID STIM HORMONE CPT-4: 89843 07/26/2011 COMPREHEN METABOLIC PANEL CPT-4: 82987 07/26/2011 COMPLETE CBC W/AUTO DIFF WBC CPT-4: 36125 07/26/2011 LIPID PANEL CPT-4: 31520 07/26/2011 A1C GLYCOSYLATED HEMOGLOBIN TEST CPT-4: 00804 011 ASSAY OF PSA TOTAL CPT-4: 88961 07/26/2011 ROUTINE VENIPUNCTURE CPT-4: 32268 01/19/2011 ASSAY OF NATRIURETIC PEPTIDE CPT-4: 15511 01/19/2011 THER/PROPH/DIAG INJ SC/IM CPT-4: 99945 01/19/2011 CEFTRIAXONE SODIUM INJECTION CPT-4: J0696 01/19/2011 METHYLPREDNISOLONE INJECTION CPT-4: J2930 01/19/2011 THER/PROPH/DIAG INJ SC/IM CPT-4: 09808 01/19/2011 THER/PROPH/DIAG INJ SC/IM CPT-4: 71441 01/18/2011 CEFTRIAXONE SODIUM INJECTION CPT-4: J0696 01/18/2011 METHYLPREDNISOLONE INJECTION CPT-4: J2930 01/18/2011 THER/PROPH/DIAG INJ SC/IM CPT-4: 31092 01/18/2011 THER/PROPH/DIAG INJ SC/IM CPT-4: 82514 12/21/2010 TESTOSTERONE CYPIONAT 100 MG CPT-4: J1070 12/21/2010 ROUTINE VENIPUNCTURE CPT-4: 04800 12/19/2010 TESTOSTERONE TOTAL - MALE CPT-4: 17956 12/19/2010 ROUTINE VENIPUNCTURE CPT-4: 81798 12/07/2010 COMPLETE CBC W/AUTO DIFF WBC CPT-4: 57667 12/07/2010 COMPREHEN METABOLIC PANEL CPT-4: 28357 12/07/2010 LIPID PANEL CPT-4: 02785 12/07/2010 A1C GLYCOSYLATED HEMOGLOBIN TEST CPT-4: 22246 011 ASSAY OF PSA TOTAL CPT-4: 01072 12/07/2010 ROUTINE VENIPUNCTURE CPT-4: 33820 04/05/2010 PRESCRIP TRANSMIT VIA ERX SY CPT-4: G8553 04/05/2010 ROUTINE VENIPUNCTURE CPT-4: 17038 01/13/2010 METHYLPREDNISOLONE INJECTION CPT-4: J2930 12/22/2009 THER/PROPH/DIAG INJ SC/IM CPT-4: 86786 12/22/2009 THER/PROPH/DIAG INJ SC/IM CPT-4: 41739 12/22/2009 CEFTRIAXONE SODIUM INJECTION CPT-4: J0696 12/22/2009 ROUTINE VENIPUNCTURE CPT-4: 33043 12/22/2009 COMPLETE CBC W/AUTO DIFF WBC CPT-4: 34512 12/22/2009 RBC SED RATE, AUTOMATED CPT-4: 48195 12/22/2009 RPR FE/E/EN/L/M 20.1-30.0 CM CPT-4: 29455 12/22/2009 EKG FOR INITIAL PREVENT EXAM CPT-4: G0403 12/22/2009 THER/PROPH/DIAG INJ SC/IM CPT-4: 31551 12/16/2009 KETOROLAC TROMETHAMINE INJ CPT-4: J1885 12/16/2009 [...] 1: 126/68 Code: 8480-6 BMI: 30.2 Code: 07291-4 Heart Rate 1: 92 bpm Height: 6' Respiratory Rate: 22 bpm SpO2: 94% Tempera ture: 36.9 (C) / 98.5 (F) Weight: 223 lbs 08/21/2018 Blood Pressure 1: 160/70 Code: 8480-6 Heart Rate 1: 79 bpm Respiratory Rate: 20 bpm SpO2: 94% Temperature: 36.7 (C) / 98.0 (F) We ight: 226 lbs 8 oz 08/07/2018 Blood Pressure 1: 138/70 Code: 8480-6 BMI: 30.1 Code: 73941-5 Heart Rate 1: 80 bpm Height: 6' Respiratory Rate: 20 bpm SpO2: 94% Tempera ture: 36.9 (C) / 98.5 (F) Weight: 222 lbs 05/23/2018 Blood Pressure 1: 148/66 Code: 8480-6 BMI: 30.0 Code: 39900-1 Heart Rate 1: 96 bpm Height: 6' Respiratory Rate: 22 bpm SpO2: 94% Tempera ture: 37.3 (C) / 99.1 (F) Weight: 221 lbs 05/02/2018 Blood Pressure 1: 146/78 Code: 8480-6 BMI: 29.6 Code: 82001-5 Heart Rate 1: 78 bpm Height: 6' Respiratory Rate: 26 bpm SpO2: 94% Tempera ture: 35.7 (C) / 96.2 (F) Weight: 218 lbs 04/29/2018 Blood Pressure 1: 142/62 Code: 8480-6 BMI: 28.6 Code: 87781-5 Heart Rate 1: 82 bpm Height: 6' Respiratory Rate: 22 bpm SpO2: 98% Tempera ture: 36.4 (C) / 97.6 (F) Weight: 211 lbs 04/22/2018 Blood Pressure 1: 126/64 Code: 8480-6 BMI: 30.0 Code: 88638-7 Heart Rate 1: 96 bpm Height: 6' [...] 1: 144/78 Code: 8480-6 BMI: 30.7 Code: 03927-2 Heart Rate 1: 92 bpm Height: 6' Respiratory Rate: 28 bpm SpO2: 94% Tempera ture: 36.9 (C) / 98.4 (F) Weight: 226 lbs 12/28/2017 Blood Pressure 1: 136/80 Code: 8480-6 Heart Rate 1: 92 bpm Respiratory Rate: 28 bpm SpO2: 94% Temperature: 36.7 (C) / 98.1 (F) 12/21/2017 Blood Pressure 1: 146/84 Code: 8480-6 BMI: 31.1 Code: 30364-1 Heart Rate 1: 84 bpm Height: 6' [...] 1: 142/64 Code: 8480-6 BMI: 31.3 Code: 76717-0 Heart Rate 1: 98 bpm Height: 6' Respiratory Rate: 24 bpm SpO2: 94% Tempera ture: 36.4 (C) / 97.6 (F) Weight: 231 lbs 10/17/2017 Blood Pressure 1: 140/68 Code: 8480-6 BMI: 31.7 Code: 55461-6 Heart Rate 1: 88 bpm Height: 6' Respiratory Rate: 20 bpm SpO2: 94% Tempera ture: 36.8 (C) / 98.3 (F) Weight: 234 lbs 08/02/2017 Blood Pressure 1: 142/80 Code: 8480-6 BMI: 31.1 Code: 65344-7 Heart Rate 1: 86 bpm Height: 6' Respiratory Rate: 20 bpm SpO2: 90% Tempera ture: 35.9 (C) / 96.7 (F) Weight: 229 lbs 07/02/2017 Blood Pressure 1: 146/64 Code: 8480-6 BMI: 29.6 Code: 12866-2 Heart Rate 1: 96 bpm Height: 6' Respiratory Rate: 20 bpm Temperature: 36 .4 (C) / 97.6 (F) Weight: 218 lbs 05/29/2017 Blood Pressure 1: 152/68 Code: 8480-6 BMI: 31.5 Code: 84750-9 Heart Rate 1: 100 bpm Height: 6' Respiratory Rate: 20 bpm SpO2: 92% Tempera ture: 36.9 (C) / 98.4 (F) Weight: 232 lbs 02/01/2017 Blood Pressure 1: 146/64 Code: 8480-6 BMI: 30.7 Code: 13357-4 Heart Rate 1: 76 bpm Height: 6' Respiratory Rate: 20 bpm SpO2: 95% Tempera ture: 36.8 (C) / 98.2 (F) Weight: 226 lbs 01/29/2017 Blood Pressure 1: 146/78 Code: 8480-6 Heart Rate 1: 84 bpm Respiratory Rate: 20 bpm SpO2: 96% Temperature: 36.1 (C) / 97.0 (F) We ight: 226 lbs 12/21/2016 Blood Pressure 1: 126/60 Code: 8480-6 BMI: 30.8 Code: 32020-5 Heart Rate 1: 88 bpm Height: 6' Respiratory Rate: 22 bpm SpO2: 94% Tempera ture: 36.7 (C) / 98.0 (F) Weight: 227 lbs 12/14/2016 Blood Pressure 1: 126/70 Code: 8480-6 BMI: 29.8 Code: 85435-9 Heart Rate 1: 92 bpm Height: 6' Respiratory Rate: 22 bpm SpO2: 93% Tempera ture: 36.8 (C) / 98.2 (F) Weight: 220 lbs 11/14/2016 Blood Pressure 1: 128/62 Code: 8480-6 Heart Rate 1: 100 bpm Respiratory Rate: 20 bpm SpO2: 96% Temperature: 36.6 (C) / 97.8 (F) We ight: 220 lbs 10/31/2016 Blood Pressure 1: 142/60 Code: 8480-6 BMI: 30.1 Code: 59996-2 Heart Rate 1: 112 bpm Height: 6' Respiratory Rate: 24 bpm SpO2: 93% Tempera ture: 37.1 (C) / 98.7 (F) Weight: 222 lbs 10/03/2016 Blood Pressure 1: 136/78 Code: 8480-6 Heart Rate 1: 106 bpm Respiratory Rate: 24 bpm SpO2: 93% Temperature: 36.6 (C) / 97.8 (F) We ight: 221 lbs 09/04/2016 Blood Pressure 1: 112/44 Code: 8480-6 BMI: 30.1 Code: 81007-3 Heart Rate 1: 90 bpm Height: 6' Respiratory Rate: 20 bpm SpO2: 93% Tempera ture: 36.6 (C) / 97.9 (F) Weight: 222 lbs 08/22/2016 Blood Pressure 1: 142/68 Code: 8480-6 BMI: 30.4 Code: 25056-4 Heart Rate 1: 100 bpm Height: 6' Respiratory Rate: 24 bpm SpO2: 93% Tempera ture: 36.7 (C) / 98.1 (F) Weight: 224 lbs 08/10/2016 Blood Pressure 1: 134/60 Code: 8480-6 BMI: 30.2 Code: 11826-1 Heart Rate 1: 76 bpm Height: 6' [...] 1: 122/72 Code: 8480-6 BMI: 30.7 Code: 58087-9 Heart Rate 1: 96 bpm Height: 6' Respiratory Rate: 22 bpm SpO2: 96% Tempera ture: 35.9 (C) / 96.7 (F) Weight: 226 lbs 04/03/2016 Blood Pressure 1: 146/64 Code: 8480-6 BMI: 30.8 Code: 01636-7 Heart Rate 1: 76 bpm Height: 6' Respiratory Rate: 20 bpm Temperature: 36 .8 (C) / 98.2 (F) Weight: 227 lbs 03/02/2016 Blood Pressure 1: 148/60 Code: 8480-6 BMI: 31.1 Code: 65155-7 Heart Rate 1: 80 bpm Height: 6' Respiratory Rate: 22 bpm SpO2: 94% Tempera ture: 36.6 (C) / 97.8 (F) Weight: 229 lbs 02/17/2016 Blood Pressure 1: 132/60 Code: 8480-6 BMI: 31.3 Code: 28671-8 Heart Rate 1: 80 bpm Height: 6' Respiratory Rate: 20 bpm Temperature: 36 .9 (C) / 98.4 (F) Weight: 231 lbs 02/14/2016 Blood Pressure 1: 126/70 Code: 8480-6 BMI: 31.3 Code: 32579-3 Heart Rate 1: 80 bpm Height: 6' Respiratory Rate: 24 bpm SpO2: 95% Tempera ture: 36.9 (C) / 98.5 (F) Weight: 231 lbs 01/31/2016 Blood Pressure 1: 136/60 Code: 8480-6 Heart Rate 1: 76 bpm Respiratory Rate: 22 bpm Temperature: 37.0 (C) / 98.6 (F) Weight: 230 lbs 12/30/2015 Blood Pressure 1: 128/58 Code: 8480-6 BMI: 31.2 Code: 82588-4 Heart Rate 1: 80 bpm Height: 6' Respiratory Rate: 20 bpm Temperature: 36 .8 (C) / 98.2 (F) Weight: 230 lbs 12/16/2015 Blood Pressure 1: 122/60 Code: 8480-6 BMI: 32.0 Code: 83305-1 Heart Rate 1: 84 bpm Height: 6' Respiratory Rate: 24 bpm Temperature: 37 .1 (C) / 98.7 (F) Weight: 236 lbs 12/06/2015 Blood Pressure 1: 162/74 Code: 8480-6 BMI: 32.5 Code: 04735-7 Heart Rate 1: 90 bpm Height: 6' Respiratory Rate: 20 bpm SpO2: 96% Tempera ture: 36.4 (C) / 97.6 (F) Weight: 240 lbs 11/15/2015 Blood Pressure 1: 166/80 Code: 8480-6 BMI: 32.4 Code: 20841-9 Heart Rate 1: 92 bpm Height: 6' Respiratory Rate: 28 bpm Temperature: 36 .5 (C) / 97.7 (F) Weight: 239 lbs 10/05/2015 Blood Pressure 1: 146/76 Code: 8480-6 BMI: 32.4 Code: 90309-8 Heart Rate 1: 88 bpm Height: 6' Respiratory Rate: 28 bpm Temperature: 37 .1 (C) / 98.7 (F) Weight: 239 lbs 07/22/2015 Blood Pressure 1: 144/68 Code: 8480-6 BMI: 31.9 Code: 86629-8 Heart Rate 1: 88 bpm Height: 6' [...] 1: 142/64 Code: 8480-6 BMI: 32.1 Code: 71153-8 Heart Rate 1: 80 bpm Height: 6' Respiratory Rate: 18 bpm Temperature: 36 .4 (C) / 97.6 (F) Weight: 237 lbs 06/07/2015 Blood Pressure 1: 164/58 Code: 8480-6 BMI: 32.1 Code: 98927-1 Heart Rate 1: 88 bpm Height: 6' Respiratory Rate: 20 bpm Temperature: 36 .6 (C) / 97.9 (F) Weight: 237 lbs 06/03/2015 Blood Pressure 1: 152/64 Code: 8480-6 BMI: 32.1 Code: 29506-8 Heart Rate 1: 96 bpm Height: 6' Respiratory Rate: 20 bpm Temperature: 37 .4 (C) / 99.3 (F) Weight: 237 lbs 06/01/2015 Blood Pressure 1: 136/70 Code: 8480-6 BMI: 31.7 Code: 30428-2 Heart Rate 1: 72 bpm Height: 6' Respiratory Rate: 22 bpm SpO2: 94% Tempera ture: 36.6 (C) / 97.9 (F) Weight: 234 lbs 02/25/2015 Blood Pressure 1: 146/80 Code: 8480-6 BMI: 32.4 Code: 13648-3 Heart Rate 1: 84 bpm Height: 6' Respiratory Rate: 28 bpm Temperature: 36 .7 (C) / 98.0 (F) Weight: 239 lbs 10/27/2014 Blood Pressure 1: 168/70 Code: 8480-6 BMI: 32.0 Code: 35155-1 Heart Rate 1: 80 bpm Height: 6' Respiratory Rate: 30 bpm SpO2: 98% Tempera ture: 36.4 (C) / 97.6 (F) Weight: 236 lbs 10/21/2014 Blood Pressure 1: 152/58 Code: 8480-6 BMI: 32.1 Code: 68147-6 Heart Rate 1: 78 bpm Height: 6' Respiratory Rate: 20 bpm Temperature: 37 .8 (C) / 100.1 (F) Weight: 237 lbs 10/06/2014 Blood Pressure 1: 132/64 Code: 8480-6 BMI: 32.5 Code: 75779-7 Heart Rate 1: 88 bpm Height: 6' Respiratory Rate: 32 bpm SpO2: 94% Tempera ture: 36.8 (C) / 98.2 (F) Weight: 240 lbs 09/21/2014 Blood Pressure 1: 134/68 Code: 8480-6 BMI: 32.4 Code: 76222-1 Heart Rate 1: 96 bpm Height: 6' Respiratory Rate: 30 bpm Temperature: 36 .7 (C) / 98.1 (F) Weight: 239 lbs 09/08/2014 Blood Pressure 1: 128/74 Code: 8480-6 BMI: 32.4 Code: 20535-4 Heart Rate 1: 82 bpm Height: 6' Respiratory Rate: 28 bpm SpO2: 93% Tempera ture: 36.6 (C) / 97.8 (F) Weight: 239 lbs 09/02/2014 Blood Pressure 1: 164/78 Code: 8480-6 Heart Rate 1: 86 bpm Respiratory Rate: 22 bpm SpO2: 96% Temperature: 36.1 (C) / 97.0 (F) We ight: 239 lbs 08/10/2014 Blood Pressure 1: 152/60 Code: 8480-6 BMI: 32.8 Code: 57890-5 Heart Rate 1: 80 bpm Height: 6' [...] 1: 146/80 Code: 8480-6 BMI: 33.9 Code: 76510-8 Heart Rate 1: 80 bpm Height: 6' [...] 1: 148/78 Code: 8480-6 BMI: 30.5 Code: 26949-4 Heart Rate 1: 84 bpm Height: 6' Respiratory Rate: 28 bpm SpO2: 97% Tempera ture: 36.4 (C) / 97.5 (F) Weight: 225 lbs 08/06/2013 Blood Pressure 1: 158/70 Code: 8480-6 Heart Rate 1: 110 bpm Respiratory Rate: 22 bpm SpO2: 88% Temperature: 39.7 (C) / 103.4 (F) W eight: 07/16/2013 Blood Pressure 1: 148/82 Code: 8480-6 BMI: 31.9 Code: 87358-1 Heart Rate 1: 80 bpm Height: 6' Respiratory Rate: 20 bpm Temperature: 36 .6 (C) / 97.9 (F) Weight: 235 lbs 04/09/2013 Blood Pressure 1: 142/78 Code: 8480-6 BMI: 31.5 Code: 01864-6 Heart Rate 1: 88 bpm Height: 6' Respiratory Rate: 32 bpm SpO2: 95% Tempera ture: 37.0 (C) / 98.6 (F) Weight: 232 lbs 02/11/2013 Blood Pressure 1: 146/70 Code: 8480-6 Heart Rate 1: 88 bpm Respiratory Rate: 20 bpm Temperature: 36.8 (C) / 98.3 (F) Weight: 230 lbs 01/31/2013 Blood Pressure 1: 128/70 Code: 8480-6 BMI: 31.6 Code: 36830-7 Heart Rate 1: 84 bpm Height: 6' Respiratory Rate: 24 bpm SpO2: 92% Tempera ture: 36.7 (C) / 98.0 (F) Weight: 233 lbs 01/20/2013 Blood Pressure 1: 148/64 Code: 8480-6 BMI: 31.6 Code: 41706-9 Heart Rate 1: 68 bpm Height: 6' Temperature: 36.1 (C) / 97.0 (F) Weight: 233 lbs 12/19/2012 Blood Pressure 1: 128/68 Code: 8480-6 BMI: 32.0 Code: 95448-1 Heart Rate 1: 64 bpm Height: 6' Temperature: 36.7 (C) / 98.0 (F) Weight: 236 lbs 10/21/2012 Blood Pressure 1: 142/64 Code: 8480-6 BMI: 30.9 Code: 35915-5 Heart Rate 1: 74 bpm Height: 6' Temperature: 36.2 (C) / 97.1 (F) Weight: 228 lbs 09/18/2012 Blood Pressure 1: 126/60 Code: 8480-6 BMI: 31.3 Code: 54293-5 Heart Rate 1: 88 bpm Height: 6' Respiratory Rate: 20 bpm Temperature: 36 .5 (C) / 97.7 (F) Weight: 231 lbs 08/28/2012 Blood Pressure 1: 132/68 Code: 8480-6 BMI: 31.5 Code: 40188-1 Heart Rate 1: 92 bpm Height: 6' Respiratory Rate: 30 bpm SpO2: 94% Tempera ture: 37.1 (C) / 98.7 (F) Weight: 232 lbs 07/10/2012 Blood Pressure 1: 118/70 Code: 8480-6 BMI: 30.5 Code: 97463-4 Heart Rate 1: 72 bpm Height: 6' Respiratory Rate: 24 bpm SpO2: 96% Tempera ture: 36.7 (C) / 98.0 (F) Weight: 225 lbs 05/09/2012 Blood Pressure 1: 124/68 Code: 8480-6 BMI: 29.8 Code: 48143-3 Heart Rate 1: 72 bpm Height: 6' Respiratory Rate: 20 bpm Temperature: 36 .8 (C) / 98.2 (F) Weight: 220 lbs 10/02/2011 Blood Pressure 1: 140/82 Code: 8480-6 BMI: 30.7 Code: 46229-9 Heart Rate 1: 68 bpm Height: 6' Temperature: 36.7 (C) / 98.0 (F) Weight: 226 lbs 08/07/2011 Blood Pressure 1: 122/68 Code: 8480-6 BMI: 30.5 Code: 39255-4 Heart Rate 1: 72 bpm Height: 6' [...] 1: 140/78 Code: 8480-6 BMI: 31.9 Code: 41595-8 Heart Rate 1: 84 bpm Height: 6' Temperature: 36.6 (C) / 97.8 (F) Weight: 235 lbs 12/22/2009 Blood Pressure 1: 140/74 Code: 8480-6 BMI: 31.9 Code: 22747-0 Heart Rate 1: 94 bpm Height: 6' SpO2: 92% Temperature: 35.7 (C) / 96.2 (F) Weight: 235 lbs 12/13/2009 Blood Pressure 1: 146/80 Code: 8480-6 BMI: 33.0 Code: 40285-3 Heart Rate 1: 86 bpm Height: 6' [...] shot follow up 05/08/2019 follow up 04/07/2019 [facility] dizziness 03/24/2019 dizziness 03/21/2019 sore throat 03/13/2019 Patient finished zit hromax last night and has one dose of prednisone left follow up 03/10/2019 ER [facility]---patient cu rrently taking zithromax, prednisone and breathing treatments every two hours spasms/spasticity 02/26/2019 follow up 02/13/2019 follow up 01/14/2019 [facility] follow up 12/25/2018 cough 12/09/2018 here [...] reports he was 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 follow up 05/29/2017 Discuss Low Back [...] 12/27/2016 fatigue 12/21/2016 follow up 12/14/2016 ER up lab draw 12/12/2016 follow up 11/14/2016 Patient has history of restless leg syndrome and currently on Requip 2mg nightly. Patient has just been discharged from [facility] with Pneumonia. Currently on Levaquin once daily. [...] fwup follow up 03/13/2016 Patient here for [facility] low on medication education for insulin use lab [...] 02/25/2015 3mo fwup follow up 10/27/2014 Hospital fw cough 10/21/2014 follow up 10/06/2014 follow up 09/21/2014 Hospital fwup follow up 09/08/2014 Hospital fw cough 09/02/2014 well man exam (65+ years) [...] 12/13/2009 Encounters Encounter Performer Location Codes Date () OFFICE/OUTPATIENT VISIT EST Diagnosis: Chronic respiratory failure with hypercapnia[ICD10: J96.12] Diagnosis: Chronic airway obstruction, not elsewhere classified[ICD10: J44.9] Diagnosis: Basal cell carcinoma, face[ICD10: C44.310] Lita CRAWFORD [employer] CPT-4: 74107 11/12/2019 ([id number]) OFFICE/OUTPATIENT VISIT EST Diagnosis: Chronic obstructive pulmonary disease, unspecified[ICD10: J44.9] Diagnosis: Right thyroid nodule[ICD10: E04.1] Lita GONZALES [employer] CPT-4: 46094 09/11/2019 ([id number]) OFFICE/OUTPATIENT VISIT EST Diagnosis: Chronic bronchitis[ICD10: J42] 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] Diagnosis: FLU VACCINE[ICD10: Z23] Lita CRAWFORD [employer] CPT-4: 16507 08/07/2019 ([id number]) OFFICE/OUTPATIENT VISIT EST Diagnosis: Chronic obstructive pulmonary disease with (acute) exacerbation[ICD10: J44.1] Autumn Oneil LITA [employer] CPT- 4: 65313 07/14/2019 ([id number]) OFFICE/OUTPATIENT VISIT EST Diagnosis: Primary insomnia[ICD10: F51.01] Diagnosis: Dyspepsia and other specified disorders of function of stomach[ICD10: K31.89] Lita BARAKAT DO [facility] CPT-4: 04621 07/01/2019 ([id number]) OFFICE/OUTPATIENT VISIT EST Diagnosis: Epigastric pain[ICD10: R10.13] Diagnosis: Nausea[ICD10: R11.0] Diagnosis: Weight loss[ICD10: R63.4] Lita AREVALO DO [facility] CPT-4: 26316 06/24/2019 ([id number]) OFFICE/OUTPATIENT VISIT EST Diagnosis: Chronic obstructive pulmonary disease, unspecified[ICD10: J44.9] Diagnosis: Chronic insomnia[ICD10: F51.04] Diagnosis: Anemia[ICD10: D64.9] Diagnosis: Diplopia[ICD10: H53.2] Diagnosis: [place][ICD10: F30.9] Lita BARAKAT DO [facility] CPT-4: 22464 06/17/2019 ([id number]) NURSE/OUTPATIENT VISIT EST Diagnosis: Vitamin B12 deficiency anemia, unspecified[ICD10: D51.9] Lita BARAKAT DO [facility] CPT-4: 21158 06/10/2019 ([id number]) NURSE/OUTPATIENT VISIT EST Diagnosis: Vitamin B12 deficiency anemia, unspecified[ICD10: D51.9] Lita BARAKAT DO [facility] CPT-4: 41265 06/02/2019 ([id number]) NURSE/OUTPATIENT VISIT EST Diagnosis: Vitamin B12 deficiency anemia, unspecified[ICD10: D51.9] Lita BARAKAT DO [facility] CPT-4: 39037 05/27/2019 ([id number]) NURSE/OUTPATIENT VISIT EST Diagnosis: Vitamin B12 deficiency anemia, unspecified[ICD10: D51.9] Lita BARAKAT DO [facility] CPT-4: 30339 05/12/2019 ([id number]) OFFICE/OUTPATIENT VISIT EST Diagnosis: Restless legs syndrome[ICD10: G25.81] Diagnosis: Primary insomnia[ICD10: F51.01] Diagnosis: Anemia, unspecified[ICD10: D64.9] Diagnosis: Type 2 diabetes mellitus with hyperglycemia[ICD10: E11.65] Diagnosis: Vitamin D deficiency, unspecified[ICD10: E55.9] Lita BARAKAT DO [facility] CPT-4: 29707 05/08/2019 ([id number]) OFFICE/OUTPATIENT VISIT EST Diagnosis: Pain in right knee[ICD10: M25.561] Diagnosis: Restless legs syndrome[ICD10: G25.81] Diagnosis: Insomnia, unspecified[ICD10: G47.00] Lita BARAKAT DO [facility] CPT-4: 18231 04/07/2019 ([id number]) NO CHARGE Diagnosis: Chronic obstructive pulmonary disease with (acute) exacerbation[ICD10: J44.1] Diagnosis: Dizziness and giddiness[ICD10: R42] Diagnosis: Generalized anxiety disorder[ICD10: F41.1] Autumn BARAKAT DO [facility] CPT-4: 78780 03/24/2019 ([id number]) OFFICE/OUTPATIENT VISIT EST Diagnosis: Chronic obstructive pulmonary disease with (acute) exacerbation[ICD10: J44.1] Diagnosis: Dizziness and giddiness[ICD10: R42] Autumn BARAKAT [employer] [facility] CPT-4: 96242 03/21/2019 ([id number]) OFFICE/OUTPATIENT VISIT EST Diagnosis: Candidal stomatitis[ICD10: B37.0] Lita BARAKAT [employer] [facility] CPT-4: 48706 03/13/2019 ([id number]) OFFICE/OUTPATIENT VISIT EST Diagnosis: Chronic obstructive pulmonary disease with acute lower respiratory infection[ICD10: J44.0] Diagnosis: Restless legs syndrome[ICD10: G25.81] Lita BARAKAT [employer] [facility] CPT-4: 38599 03/10/2019 ([id number]) OFFICE/OUTPATIENT VISIT EST Diagnosis: Restless legs syndrome[ICD10: G25.81] Lita BARAKAT DO [facility] CPT-4: 25542 02/26/2019 ([id number]) OFFICE/OUTPATIENT VISIT EST Diagnosis: Primary insomnia[ICD10: F51.01] Diagnosis: Chronic obstructive pulmonary disease, unspecified[ICD10: J44.9] Lita BARAKAT DO [facility] CPT-4: 94047 02/13/2019 ([id number]) OFFICE/OUTPATIENT VISIT EST Diagnosis: Chronic obstructive pulmonary disease, unspecified[ICD10: J44.9] Diagnosis: Chronic respiratory failure with hypoxia[ICD10: J96.11] Diagnosis: Chronic respiratory failure with hypercapnia[ICD10: J96.12] Lita BARAKAT DO [facility] CPT-4: 72797 01/14/2019 ([id number]) OFFICE/OUTPATIENT VISIT EST Diagnosis: Chronic respiratory failure with hypoxia[ICD10: J96.11] Diagnosis: Patient's noncompliance with other medical treatment and regimen[ICD10: Z91.19] Diagnosis: Chronic obstructive pulmonary disease with (acute) exacerbation[ICD10: J44.1] Lita BARAKAT [employer] [facility] CPT- 4: 68686 12/25/2018 ([id number]) OFFICE/OUTPATIENT VISIT EST Diagnosis: Essential (primary) hypertension[ICD10: I10] Diagnosis: Type 2 diabetes mellitus with hyperglycemia[ICD10: E11.65] Diagnosis: Hypothyroidism, unspecified[ICD10: E03.9] Diagnosis: Hyperlipidemia, unspecified[ICD10: E78.5] Diagnosis: Acute recurrent maxillary sinusitis[ICD10: J01.01] Ines Banerjee LITA BARAKAT [employer] [facility] CPT-4: 66308 12/09/2018 ([id number]) OFFICE/OUTPATIENT VISIT EST Diagnosis: Candidal stomatitis[ICD10: B37.0] Lita ALYOSCAR Segura Ashley BARAKAT [employer] [facility] CPT-4: 87731 12/05/2018 ([id number]) OFFICE/OUTPATIENT VISIT EST Diagnosis: Acute recurrent sinusitis, unspecified[ICD10: J01.91] Diagnosis: Pain in right knee[ICD10: M25.561] Lita Barakat KEVIN GONZALES Ashley BARAKAT [employer] [facility] CPT-4: 55463 10/23/2018 ([id number]) OFFICE/OUTPATIENT VISIT EST Diagnosis: Restless legs syndrome[ICD10: G25.81] Diagnosis: Basal cell carcinoma of skin of scalp and neck[ICD10: C44.41] Lita BARAKAT [facility] CPT-4: 86762 08/21/2018 ([id number]) OFFICE/OUTPATIENT VISIT EST Diagnosis: Chronic obstructive pulmonary disease with acute lower respiratory infection[ICD10: J44.0] Diagnosis: Restless legs syndrome[ICD10: G25.81] Lita BARAKAT [facility] CPT-4: 53562 08/07/2018 ([id number]) OFFICE/OUTPATIENT VISIT EST Diagnosis: Chronic obstructive pulmonary disease with acute lower respiratory infection[ICD10: J44.0] Lita BARAKAT [facility] CPT-4: 95918 05/23/2018 ([id number]) OFFICE/OUTPATIENT VISIT EST Diagnosis: Candidal stomatitis[ICD10: B37.0] Lita BARAKAT [facility] CPT-4: 52484 05/02/2018 ([id number]) OFFICE/OUTPATIENT VISIT EST Diagnosis: Candidal stomatitis[ICD10: B37.0] Diagnosis: Other retention of urine[ICD10: R33.8] Diagnosis: Chronic obstructive pulmonary disease with acute lower respiratory infection[ICD10: J44.0] Autumn BARAKAT [facility] CPT-4: 62067 04/29/2018 ([id number]) OFFICE/OUTPATIENT VISIT EST Diagnosis: Chronic obstructive pulmonary disease with acute lower respiratory infection[ICD10: J44.0] Lita BARAKAT [facility] CPT-4: 81538 04/22/2018 ([id number]) OFFICE/OUTPATIENT VISIT EST Diagnosis: Unilateral primary osteoarthritis, right knee[ICD10: M17.11] Diagnosis: Squamous cell carcinoma of skin, unspecified[ICD10: C44.92] Lita BARAKAT [facility] CPT-4: 40783 01/28/2018 ([id number]) OFFICE/OUTPATIENT VISIT EST Diagnosis: Pain in right knee[ICD10: M25.561] Diagnosis: 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] Lita BARAKAT [facility] CPT-4: 33412 01/23/2018 ([id number]) OFFICE/OUTPATIENT VISIT EST Diagnosis: Urinary tract infection, site not specified[ICD10: N39.0] Diagnosis: Chronic obstructive pulmonary disease with acute lower respiratory infection[ICD10: J44.0] Lita BARAKAT [facility] CPT-4: 19091 01/02/2018 ([id number]) OFFICE/OUTPATIENT VISIT EST Diagnosis: Chronic obstructive pulmonary disease with (acute) exacerbation[ICD10: J44.1] Autumn BARAKAT [facility] CPT- 4: 01567 12/28/2017 ([id number]) OFFICE/OUTPATIENT VISIT EST Diagnosis: Acute bronchitis, unspecified[ICD10: J20.9] Autumn BARAKAT [facility] CPT-4: 18609 12/21/2017 ([id number]) OFFICE/OUTPATIENT VISIT EST Diagnosis: Chronic obstructive pulmonary disease with acute lower respiratory infection[ICD10: J44.0] Diagnosis: Pain in right knee[ICD10: M25.561] Autumn BARAKAT [facility] CPT-4: 00961 12/17/2017 ([id number]) OFFICE/OUTPATIENT VISIT EST Diagnosis: Laceration without foreign body of right hand, sequela[ICD10: S61.411S] Diagnosis: Restless legs syndrome[ICD10: G25.81] Lita BARAKAT DO [facility] CPT-4: 40186 10/17/2017 OFFICE/OUTPATIENT VISIT EST Diagnosis: Chronic obstructive pulmonary disease with acute lower respiratory infection[ICD10: J44.0] Autumn BARAKAT DO [facility] CPT-4: 85037 08/02/2017 ([id number]) OFFICE/OUTPATIENT VISIT EST Diagnosis: PNEUMOCOCCAL VACCINE[ICD10: Z23] Lita BARAKAT DO [facility] CPT-4: 73015 07/24/2017 OFFICE/OUTPATIENT VISIT EST Diagnosis: Chronic obstructive pulmonary disease with (acute) exacerbation[ICD10: J44.1] Autumn BARAKAT DO [facility] CPT- 4: 54459 07/02/2017 OFFICE/OUTPATIENT VISIT EST Diagnosis: Low back pain[ICD10: M54.5] Ruchi GHOTRA [facility] CPT-4: 56334 05/29/2017 ([id number]) OFFICE/OUTPATIENT VISIT EST Diagnosis: Essential (primary) hypertension[ICD10: I10] Diagnosis: Hypothyroidism, unspecified[ICD10: E03.9] Diagnosis: Dizziness and giddiness[ICD10: R42] Diagnosis: Other abnormality of red blood cells[ICD10: R71.8] Diagnosis: Contracture of muscle, unspecified site[ICD10: M62.40] Lita ALYLINE Ashley BARAKAT [facility] CPT-4: 15533 04/17/2017 OFFICE/OUTPATIENT VISIT EST Diagnosis: Pain in left shoulder[ICD10: M25.512] Ruchi AGNE DonovanFerdinand [facility] CPT-4: 83797 01/29/2017 ([id number]) OFFICE/OUTPATIENT VISIT EST Diagnosis: Anemia, unspecified[ICD10: D64.9] Lita ALYOSCAR Segura DonovanFerdinand [facility] CPT-4: 89505 12/27/2016 ([id number]) OFFICE/OUTPATIENT VISIT EST Diagnosis: Other fatigue[ICD10: R53.83] Diagnosis: Other iron deficiency anemias[ICD10: D50.8] Lita ALYLINE DonovanFerdniand [facility] CPT-4: 39496 12/21/2016 ([id number]) OFFICE/OUTPATIENT VISIT EST Diagnosis: Anemia, unspecified[ICD10: D64.9] Diagnosis: Other fatigue[ICD10: R53.83] Diagnosis: Restless legs syndrome[ICD10: G25.81] Lita AGNE DonovanFerdinand [facility] CPT-4: 75093 12/14/2016 ([id number]) OFFICE/OUTPATIENT VISIT EST Diagnosis: Anemia, unspecified[ICD10: D64.9] Diagnosis: Other abnormality of red blood cells[ICD10: R71.8] Lita Barakat LITA DonovanFerdinand [facility] CPT-4: 93831 12/12/2016 ([id number]) OFFICE/OUTPATIENT VISIT EST Diagnosis: Pneumonia, unspecified organism[ICD10: J18.9] Diagnosis: Restless legs syndrome[ICD10: G25.81] Magda HERRMANNONIEL MARC Ashley BARAKAT [facility] CPT-4: 57411 11/14/2016 ([id number]) OFFICE/OUTPATIENT VISIT EST Diagnosis: Candidal stomatitis[ICD10: B37.0] Lita GOODE Daja Ashley BARAKAT [facility] CPT-4: 50305 10/31/2016 ([id number]) OFFICE/OUTPATIENT VISIT EST Diagnosis: Acute upper respiratory infection, unspecified[ICD10: J06.9] Diagnosis: Personal history of pneumonia (recurrent)[ICD10: Z87.01] Magda ALYLINE Ashley BARAKAT [facility] CPT-4: 53008 10/03/2016 ([id number]) OFFICE/OUTPATIENT VISIT EST Diagnosis: Restless legs syndrome[ICD10: G25.81] Diagnosis: Insomnia, unspecified[ICD10: G47.00] Magda Toth JERMAIN JESSICA Ashley BARAKAT [facility] CPT-4: 24549 09/04/2016 ([id number]) OFFICE/OUTPATIENT VISIT EST Diagnosis: Restless legs syndrome[ICD10: G25.81] Diagnosis: Primary insomnia[ICD10: F51.01] Lita ALYLINE Ashley BARAKAT [facility] CPT-4: 18559 08/10/2016 OFFICE/OUTPATIENT VISIT EST Diagnosis: Toxic gastroenteritis and colitis[ICD10: K52.1] Diagnosis: Dizziness and giddiness[ICD10: R42] Diagnosis: Headache[ICD10: R51] Diagnosis: Restless legs syndrome[ICD10: G25.81] Lita Gasper ALIZEONIEL AGNE Ashley BARAKAT [facility] CPT-4: 30090 07/06/2016 ([id number]) OFFICE/OUTPATIENT VISIT EST Diagnosis: Chest pain, unspecified[ICD10: R07.9] Diagnosis: Dyspnea, unspecified[ICD10: R06.00] Magda Toth ELLIS CONDE Ashley BARAKAT [facility] CPT-4: 08232 06/22/2016 ([id number]) OFFICE/OUTPATIENT VISIT EST 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] Diagnosis: PNEUMOCOCCAL VACCINE[ICD10: Z23] Diagnosis: FLU VACCINE[ICD10: Z23] Lita CRAWFORD Ashley [facility] CPT-4: 74297 06/13/2016 ([id number]) OFFICE/OUTPATIENT VISIT EST Diagnosis: Chest pain, unspecified[ICD10: R07.9] Diagnosis: Other forms of dyspnea[ICD10: R06.09] Diagnosis: Shortness of breath[ICD10: R06.02] Diagnosis: Other fatigue[ICD10: R53.83] Magda [facility]LINE [facility] C[facility]: 41244 06/01/2016 ([id number]) OFFICE/OUTPATIENT VISIT EST Diagnosis: Unspecified hearing loss, left ear[ICD10: H91.92] Diagnosis: Other specified disorders of Eustachian tube, left ear[ICD10: H69.82] Magda ALYLINE [facility] C[facility]: 65152 11/2015 ([id number]) OFFICE/OUTPATIENT VISIT EST Diagnosis: Impacted cerumen, bilateral[ICD10: H61.23] Diagnosis: DM W/O COMPLICATION TYPE I, 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: E10.9] Diagnosis: Generalized anxiety disorder[ICD10: F41.1] Lita CRAWFORD [facility]erdinand [facility] CPT-[facility]: 38930 04/03/2016 ([id number]) OFFICE/OUTPATIENT VISIT EST Diagnosis: 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] Lita Jasminbetty CRAWFORD [facility] CPT - 4: 33022 03/13/2016 ([id number]) OFFICE/OUTPATIENT VISIT EST Diagnosis: Type 2 diabetes mellitus with hyperglycemia[ICD10: E11.65] Diagnosis: Hyperlipidemia, unspecified[ICD10: E78.5] Diagnosis: Essential (primary) hypertension[ICD10: I10] Diagnosis: Chronic obstructive pulmonary disease, unspecified[ICD10: J44.9] Diagnosis: Testicular hypofunction[ICD10: E29.1] Diagnosis: Male erectile dysfunction, unspecified[ICD10: N52.9] Diagnosis: Anemia, unspecified[ICD10: D64.9] Litajessica BARAKAT DO [facility] CPT-4: 99910 03/06/2016 ([id number]) OFFICE/OUTPATIENT VISIT EST Diagnosis: Type 2 diabetes mellitus with hyperglycemia[ICD10: E11.65] Diagnosis: Hyperlipidemia, unspecified[ICD10: E78.5] Diagnosis: Chronic obstructive pulmonary disease, unspecified[ICD10: J44.9] Diagnosis: Male erectile dysfunction, unspecified[ICD10: N52.9] Lita BARAKAT DO [facility] CPT-4: 83149 03/02/2016 ([id number]) OFFICE/OUTPATIENT VISIT EST Diagnosis: Pain in right foot[ICD10: M79.671] Magda Toth JERMAINDARLING JANET BARAKAT DO [facility] CPT-4: 31012 02/14/2016 OFFICE/OUTPATIENT VISIT EST Diagnosis: Generalized anxiety disorder[ICD10: F41.1] Lita BARAKAT DO [facility] CPT-4: 69963 01/31/2016 ([id number]) OFFICE/OUTPATIENT VISIT EST Diagnosis: Generalized anxiety disorder[ICD10: F41.1] Lita BARAKAT DO [facility] CPT-4: 89539 12/30/2015 ([id number]) OFFICE/OUTPATIENT VISIT EST Diagnosis: Localized swelling, mass and lump, neck[ICD10: R22.1] Lita BARAKAT DO [facility] CPT-4: 44111 12/16/2015 OFFICE/OUTPATIENT VISIT EST Diagnosis: Localized enlarged lymph nodes[ICD10: R59.0] Diagnosis: Otalgia, left ear[ICD10: H92.02] Stephanie BARAKAT DO [facility] CPT-4: 37919 12/06/2015 OFFICE/OUTPATIENT VISIT EST Diagnosis: Localized enlarged lymph nodes[ICD10: R59.0] Diagnosis: Squamous cell carcinoma of skin, unspecified[ICD10: C44.92] Diagnosis: Actinic keratosis[ICD10: L57.0] Stephanie BARAKAT DO [facility] CPT-4: 98176 11/15/2015 OFFICE/OUTPATIENT VISIT EST Diagnosis: Cellulitis of left lower limb[ICD10: L03.116] Diagnosis: Encounter for examination and observation for other specified reasons[ICD10: Z04.8] Diagnosis: Chronic obstructive pulmonary disease, unspecified[ICD10: J44.9] Stephanie BARAKAT DO [facility] CPT-4: 69544 07/22/2015 OFFICE/OUTPATIENT VISIT EST Diagnosis: Other specified joint disorders, left knee[ICD10: M25.862] Diagnosis: Cellulitis of left lower limb[ICD10: L03.116] Diagnosis: Other fatigue[ICD10: R53.83] Diagnosis: Hyperlipidemia, unspecified[ICD10: E78.5] Stephanie BARAKAT DO [facility] CPT-4: 39351 07/01/2015 OFFICE/OUTPATIENT VISIT EST Diagnosis: Pain in left knee[ICD10: M25.562] Diagnosis: Cellulitis of left lower limb[ICD10: L03.116] Diagnosis: Other specified joint disorders, left knee[ICD10: M25.862] Stephanie ManFerdinand [facility] CPT-4: 91883 06/28/2015 OFFICE/OUTPATIENT VISIT EST Diagnosis: PREPATELLAR BURSITIS[ICD9: 726.65] Diagnosis: Cellulitis of knee, left[ICD9: 682.6] Stephanie EspinozaAshleyisabella ManFerdinand [facility] CPT-4: 45630 06/09/2015 ([id number]) OFFICE/OUTPATIENT VISIT EST Diagnosis: PREPATELLAR BURSITIS[ICD9: 726.65] Diagnosis: Cellulitis of knee, left[ICD9: 682.6] Lita Gasper ALIZEONIEL AGNE DonovanFerdinand [facility] CPT-4: 11378 06/07/2015 OFFICE/OUTPATIENT VISIT EST Diagnosis: Cellulitis of knee, left[ICD9: 682.6] Stephanie EspinozaAshleyisabella ManFerdinand [facility] CPT-4: 25545 06/03/2015 ([id number]) OFFICE/OUTPATIENT VISIT EST Diagnosis: DM W/O COMPLICATION TYPE II, UNCONTROLLED[ICD9: 250.02] Diagnosis: COPD[ICD9: 496] Lita Jasminbetty LITA DonovanFerdinand [facility] CPT- 4: 14325 06/01/2015 ([id number]) OFFICE/OUTPATIENT VISIT EST Diagnosis: COPD[ICD9: 496] Diagnosis: DYSPNEA[ICD9: 786.09] Diagnosis: DM W/O COMPLICATION TYPE II, UNCONTROLLED[ICD9: 250.02] Diagnosis: Actinic keratosis[ICD9: 702.0] Lita BARAKAT DO [facility] CPT-4: 43177 02/25/2015 ([id number]) OFFICE/OUTPATIENT VISIT EST Diagnosis: ASTHMA NOS[ICD9: 493.90] Diagnosis: COPD[ICD9: 496] Diagnosis: DM W/O COMPLICATION TYPE II, UNCONTROLLED[ICD9: 250.02] Lita BARAKAT DO [facility] CPT-4: 61115 10/27/2014 OFFICE/OUTPATIENT VISIT EST Diagnosis: DYSPNEA[ICD9: 786.09] Diagnosis: COPD[ICD9: 496] Lita BARAKAT DO [facility] CPT- 4: 49214 10/06/2014 ([id number]) OFFICE/OUTPATIENT VISIT EST Diagnosis: PNEUMONIA, ORGANISM[ICD9: 486] Diagnosis: COPD[ICD9: 496] Diagnosis: DYSPNEA[ICD9: 786.09] Lita BARAKAT [employer] [facility] CPT-4: 55399 09/21/2014 OFFICE/OUTPATIENT VISIT EST Diagnosis: PNEUMONIA, ORGANISM[ICD9: 486] Diagnosis: DYSPNEA[ICD9: 786.09] Diagnosis: COUGH[ICD9: 786.2] Stephanie BARAKAT [employer] [facility] CPT-4: 78109 09/08/2014 OFFICE/OUTPATIENT VISIT EST Diagnosis: COPD with exacerbation[ICD9: 491.21] Diagnosis: COUGH[ICD9: 786.2] Diagnosis: DYSPNEA[ICD9: 786.09] Stephanie BARAKAT [employer] [facility] CPT-4: 02055 09/02/2014 ([id number]) OFFICE/OUTPATIENT VISIT EST Diagnosis: DM W/O COMPLICATION TYPE II, UNCONTROLLED[ICD9: 250.02] Lita BARAKAT [employer] [facility] CPT-4: 17435 08/27/2014 ([id number]) OFFICE/OUTPATIENT VISIT EST Diagnosis: DM W/O COMPLICATION TYPE II, UNCONTROLLED[ICD9: 250.02] Diagnosis: HYPERLIPIDEMIA NEC/NOS[ICD9: 272.4] Diagnosis: HYPERTENSION[ICD9: 401.9] Diagnosis: COPD[ICD9: 496] Diagnosis: FLU VACCINE[ICD10: Z23] Lita PABLO [facility] CPT-4: 66864 08/05/2014 ([id number]) OFFICE/OUTPATIENT VISIT EST Diagnosis: COPD[ICD9: 496] Diagnosis: Lumbar degenerative disc disease[ICD9: 722.52] Lita BARAKAT [facility] CPT-4: 03685 05/05/2014 OFFICE/OUTPATIENT VISIT EST Diagnosis: DYSPNEA[ICD9: 786.09] Diagnosis: COPD[ICD9: 496] [facility] C[facility]: 74636 03/24/2014 ([id number]) OFFICE/OUTPATIENT VISIT EST Diagnosis: COPD[ICD9: 496] Diagnosis: DYSPNEA[ICD9: 786.09] [facility] C[facility]: 84900 03/10/2014 OFFICE/OUTPATIENT VISIT EST Diagnosis: Subacromial bursitis[ICD9: 726.19] Diagnosis: Chronic low back pain[ICD9: 724.2] Diagnosis: Lumbar degenerative disc disease[ICD9: 722.52] [facility] C[facility]: 63285 12/16/2013 ([id number]) OFFICE/OUTPATIENT VISIT EST Diagnosis: PHARYNGITIS, ACUTE[ICD9: 462] Diagnosis: COPD[ICD9: 496] Lita BARAKAT [facility] CPT- 4: 90925 10/09/2013 OFFICE/OUTPATIENT VISIT EST Diagnosis: COPD[ICD9: 496] Diagnosis: Acute exacerbation of chronic obstructive pulmonary disease (COPD)[ICD9: 491.21] Ruchi Buchanan LITA [facility] CPT-[facility]: 11146 09/18/2013 ([id number]) OFFICE/OUTPATIENT VISIT EST Diagnosis: PNEUMONIA, ORGANISM[ICD9: 486] Diagnosis: DM W/O COMPLICATION TYPE II[ICD9: 250.00] Lita [facility] C[facility]: 68337 08/13/2013 ([id number]) OFFICE/OUTPATIENT VISIT EST Diagnosis: DM W/O COMPLICATION TYPE II, UNCONTROLLED[ICD9: 250.02] Diagnosis: HYPERLIPIDEMIA NEC/NOS[ICD9: 272.4] Diagnosis: HYPERTENSION[ICD9: 401.9] Diagnosis: DYSPNEA[ICD9: 786.09] Diagnosis: Family history of CABG[ICD9: V17.49] Lita [facility] C[facility]: 22593 07/16/2013 ([id number]) OFFICE/OUTPATIENT VISIT EST Diagnosis: DM W/O COMPLICATION TYPE II, UNCONTROLLED[ICD9: 250.02] Diagnosis: HYPERLIPIDEMIA NEC/NOS[ICD9: 272.4] Diagnosis: HYPERTENSION[ICD9: 401.9] [facility]ita [facility] CPT-4: 10389 06/25/2013 OFFICE/OUTPATIENT VISIT EST Diagnosis: COUGH[ICD9: 786.2] Diagnosis: COPD[ICD9: 496] Kimber[facility] C[facility]: 26409 04/09/2013 ([id number]) OFFICE/OUTPATIENT VISIT EST Diagnosis: Muscle spasm[ICD9: 728.85] Diagnosis: ARTHRALGIA-MULTIPLE SITES[ICD9: 719.49] Lita Ramirez [facility] CPT-[facility]: 45212 02/11/2013 OFFICE/OUTPATIENT VISIT EST Diagnosis: COPD with exacerbation[ICD9: 491.21] Diagnosis: BRONCHITIS, ACUTE[ICD9: 466.0] Ruchi Streeter [facility] CPT-4: 83334 01/31/2013 OFFICE/OUTPATIENT VISIT EST Diagnosis: COUGH[ICD9: 786.2] Diagnosis: PHARYNGITIS, ACUTE[ICD9: 462] Diagnosis: SINUSITIS, ACUTE[ICD9: 461.9] Lita Ramirez [facility] CPT-[facility]: 87429 01/20/2013 OFFICE/OUTPATIENT VISIT EST Diagnosis: DIZZINESS/VERTIGO[ICD9: 780.4] Lita BARAKAT [facility] CPT-4: 66598 12/19/2012 OFFICE/OUTPATIENT VISIT EST Diagnosis: Skin lesion of left arm[ICD9: 709.9] Diagnosis: Otitis externa[ICD9: 380.10] Diagnosis: PHARYNGITIS, ACUTE[ICD9: 462] Lita BARAKAT [facility] CPT-4: 66820 10/21/2012 ([id number]) OFFICE/OUTPATIENT VISIT EST Diagnosis: DM W/O COMPLICATION TYPE II, UNCONTROLLED[ICD9: 250.02] Diagnosis: HYPERLIPIDEMIA NEC/NOS[ICD9: 272.4] Diagnosis: HYPERTENSION[ICD9: 401.9] Lita AREVALO [facility] CPT-4: 74912 09/19/2012 ([id number]) OFFICE/OUTPATIENT VISIT EST Diagnosis: DM W/O COMPLICATION TYPE II, UNCONTROLLED[ICD9: 250.02] Diagnosis: HYPERLIPIDEMIA NEC/NOS[ICD9: 272.4] Diagnosis: COPD[ICD9: 496] Lita BARAKAT [facility] CPT- 4: 40913 09/18/2012 ([id number]) OFFICE/OUTPATIENT VISIT EST Diagnosis: BRONCHITIS, ACUTE[ICD9: 466.0] Diagnosis: SINUSITIS, ACUTE[ICD9: 461.9] Lita BARAKAT [facility] CPT-4: 92936 08/28/2012 ([id number]) OFFICE/OUTPATIENT VISIT EST Diagnosis: COPD[ICD9: 496] Diagnosis: DYSPNEA[ICD9: 786.09] Diagnosis: VAC STREP PNEUMONIAE-FLU (Medicare)[ICD9: V06.6] Lita BARAKAT [facility] CPT-4: 78027 07/10/2012 ([id number]) OFFICE/OUTPATIENT VISIT EST Diagnosis: DM W/O COMPLICATION TYPE II, UNCONTROLLED[ICD9: 250.02] Diagnosis: HYPERTENSION[ICD9: 401.9] Diagnosis: HYPERLIPIDEMIA NEC/NOS[ICD9: 272.4] Diagnosis: DIZZINESS/VERTIGO[ICD9: 780.4] Lita CASTELLANOSNDER DO [facility] CPT-4: 12242 05/09/2012 ([id number]) OFFICE/OUTPATIENT VISIT EST Diagnosis: DM W/O COMPLICATION TYPE II, UNCONTROLLED[ICD9: 250.02] Diagnosis: HYPERLIPIDEMIA NEC/NOS[ICD9: 272.4] Diagnosis: HYPERTENSION[ICD9: 401.9] Diagnosis: MALAISE AND FATIGUE[ICD9: 780.79] Lita GOODE Daja SFerdinand [facility] CPT-4: 86275 05/06/2012 OFFICE/OUTPATIENT VISIT EST Diagnosis: COUGH[ICD9: 786.2] Diagnosis: SINUSITIS, ACUTE[ICD9: 461.9] Diagnosis: PHARYNGITIS, ACUTE[ICD9: 462] Lita CRAWFORD SFerdinand [facility] CPT-4: 24803 10/02/2011 OFFICE/OUTPATIENT VISIT EST Diagnosis: DM W/O COMPLICATION TYPE II, UNCONTROLLED[ICD9: 250.02] Diagnosis: HYPERLIPIDEMIA NEC/NOS[ICD9: 272.4] Diagnosis: HYPERTENSION[ICD9: 401.9] Diagnosis: COPD[ICD9: 496] Lita HERRMANNQUELINE S. ORENDER DO [facility] CPT- 4: 67431 08/07/2011 OFFICE/OUTPATIENT VISIT EST Lita HERRMANNQUELINE S. ORE NDER [facility] CPT- 4: 24531 04/03/2011 ([id number]) OFFICE/OUTPATIENT VISIT EST Lita [facility]BAR [facility] CPT-4: 81980 01/18/2011 ([id number]) OFFICE/OUTPATIENT VISIT EST Lita TOBAR SUZANNE S. ORENDER [facility] CPT-4: 86392 12/19/2010 ([id number]) OFFICE/OUTPATIENT VISIT, EST Lita HOLMAN S. ORENDER [facility] CPT-4: 61627 04/05/2010 ([id number]) OFFICE/OUTPATIENT VISIT, EST Lita HOLMAN S. ORENDER [facility] CPT-4: 83935 01/13/2010 ([id number]) OFFICE/OUTPATIENT VISIT, EST Lita [facility] CPT-4: 67710 12/23/2009 ([id number]) OFFICE/OUTPATIENT VISIT, [facility] CPT-4: 85233 12/22/2009 ([id number]) OFFICE/OUTPATIENT VISIT, [facility] CPT-4: 41872 12/13/2009 Plan of Care Planned Activity Notes [...] ICD-9 : 173.31 ICD-10 : C44.310 11/12/2019 Care Plan: Referral Order SNOMED-CT : 30 [id number] Pending 11/12/2019 Care Plan: Referral Order SNOMED-CT : 30 [id number] Pending 11/12/2019 Visit Diagnosis Plan: Right thyroid nodule Discussion: Check thyroid US ICD-9 : 241.0 ICD-10 : E04.1 09/11/2019 Visit Diagnosis Plan: Chronic obstructive pulmonary di sease, unspecified Discussion: Start Pulmonary Rehab Reviewed results of CT of chest ordered by pulmonology Follow Up: 3 months ICD-9 : 496 ICD-10 : J44.9 09/11/2019 Appointment: Lita Bar[facility]at [facility] [phone] [id number] [facility] REVIEW 09/11/2019 Care Plan: US EXAM OF HEAD AND NECK LOIN C : 94033-1 Pending 09/11/2019 Visit Diagnosis Plan: Chronic bronchitis Discussion: A ugmentin for 10 days ICD-9 : 491.9 ICD-10 : J42 08/07/2019 Appointment: Lita Barakat WPtel: [address] [place] [address] ACUTE ILLNESS 08/07/2019 Visit Diagnosis Plan: Chronic [...] him that overuse of symbicort can cause penitentiary damage and the albuterol is to be used every 4 hours as needed. call office later this week with worsening or no improvement ICD-9 : 491.21 ICD-10 : J44.1 07/14/2019 Appointment: Autumn Oneil [address] [place] [address] ACUTE ILLNESS 07/14/2019 Visit Diagnosis Plan: Dyspepsia [...] : F51.01 07/01/2019 Appointment: Lita Barakat WPtel: [facility] [address] US FOLLOW UP 07/01/2019 Care Plan: CT ABDOMEN W/O DYE LOINC : 36 103-0 Pending 07/01/2019 Care Plan: Referral Order SNOMED-CT : 30 [id number] Pending 07/01/2019 Visit Diagnosis Plan: Weight loss [...] R10.13 06/24/2019 Appointment: Lita Barakat [facility]Ptel[facility] [phone] [facility] [facility] 06/24/2019 Patient Education: Seroquel- [employer] Coupon [id number] https://www.CO2Stats/Drug123.com/resources/getResource/61/9io3n7s5-e650-14e2-20 Completed 06/24/2019 Patient Education: ondansetron HCl- [employer] Coupon [id number] https://www.CO2Stats/Drug123.com/resources/getResource/61/2642105v-3112-67y4-y4 Completed 06/24/2019 Care Plan: US EXAM ABDOM COMPLETE LOINC : 54274-5 Pending 06/24/2019 Visit Diagnosis Plan: Chronic insomnia [...] : H53.2 06/17/2019 Appointment: Lita Barakat WPtel: [address] [place] [address] US FOLLOW UP 06/17/2019 Appointment: Lita Barakat WPtel: [address] [place] [address] US INJECTION 06/10/2019 Appointment: Lita Barakat WPtel: [address] [place] [address] US INJECTION 06/02/2019 Appointment: Lita Barakat WPtel: [address] [place] [address] US INJECTION 05/27/2019 Appointment: Lita Barakat WPtel: [address] [place] [address] US INJECTION 05/12/2019 Visit Diagnosis Plan: Anemia, [...] : E55.9 05/08/2019 Appointment: Lita Barakat WPtel: [address] [place] [address] US FOLLOW UP 05/08/2019 Visit Diagnosis Plan: Pain in right knee Discussion: S top tramadol and tylenol q HS Trial of Hydrocodone 10/325mg po q HS Recheck 1month ICD-9 : 719.46 ICD-10 : M25.561 04/07/2019 Appointment: Lita Barakat WPtel: [phone] [id number] [facility] Follow Up 04/07/2019 Visit Diagnosis Plan: [...] F41.1 03/24/2019 [facility]ment[facility] [address] [id number] [facility] 03/24/2019 Patient Education: hydroxyzine HCl- [employer] Coupon [id number] Completed 03/24/2019 Patient Education: pantoprazole- [employer] Coupon [id number] Completed 03/24/2019 Visit Diagnosis Plan: Chronic obstructiv e pulmonary disease with (acute) exacerbation Discussion: 90 mg solumedrol given in of fice. patient's portable oxygen tank was empty. [id number] patient on importance of monitoring oxygen tank [...] ICD-10 : R42 03/21/2019 Appointment: Autumn Oneil [address] ACUTE ILLNESS 03/21/2019 Patient Education: ipratropium-albuterol- [employer] C taj [id number] https://www.Drug123.com.com/samplemd/resources/getResource/61/b1ag99f7-p3o6-7s2v-70 Completed 03/21/2019 Visit Diagnosis Plan: Chronic obstructiv e pulmonary disease with (acute) exacerbation Discussion: Solumedrol now Use SVNs with duoneb at least q4hrs Patient is supposed to be on continuous oxygen but not wearing ICD-9 : 491.21 ICD-10 : J44.1 03/13/2019 Visit Diagnosis Plan: Candidal stomatitis Discussion: Diflucan and Nystatin susp ICD-9 : 112.0 ICD-10 : B37.0 03/13/2019 Appointment: Lita Barakat WPtel: [phone] [facility] ACUTE ILLNESS 03/13/2019 Patient Education: losartan- [employer] Coupon [id number] Completed 03/13/2019 Patient Education: nystatin- [employer] Coupon [id number] Completed 03/13/2019 Patient Education: fluconazole- [employer] Coupon [id number] Completed 03/13/2019 Visit Diagnosis Plan: Chronic obstructiv [...] : G25.81 03/10/2019 Appointment: Lita Barakat WPtel: [address] [place], [place] [id number] ACUTE ILLNESS 03/10/2019 Visit Diagnosis Plan: Restless legs syndrome Discussio n: Stop requip Increase sinemet to TID Add children's chewable MV with iron BID Add magnesium oxide 400mg daily Add Lyrica 75mg po q HS Stop trazadone Recheck 3 weeks Follow Up: 3 weeks ICD-9 : 333.94 ICD-10 : G25.81 02/26/2019 Appointment: Lita Barakat WPtel: [address] [place], [place] [id number] ACUTE ILLNESS 02/26/2019 Visit Diagnosis Plan: Primary insomnia Discussion: Tri al of doxepin 10-20mg po q HS prn sleep ICD-9 : 780.52 ICD-10 : F51.01 02/13/2019 Visit Diagnosis Plan: Chronic obstructive pulmonary di sease, unspecified Discussion: Stable Discussed trip to [place]--will get oxygen setup through [facility] ICD-9 : 496 ICD-10 : J44.9 02/13/2019 Appointment: Lita Barakat WPtel: [address] [place], [place] [id number] FOLLOW UP 02/13/2019 Patient Education: doxepin- [employer] Coupon [id number] https://www.Drug123.com.Vocollect/samplemd/resources/getResource/61/75i0m95p-53uc-357z-4m Completed 02/13/2019 Appointment: Lita Barakat WPtel: [address] [place], [place] [id number] CANCELED 01/20/2019 Visit Diagnosis Plan: Chronic obstructive pulmonary di sease, unspecified Discussion: Stable on oxygen Given Symbicort samples Follow Up: 1 months ICD-9 : 496 ICD-10 : J44.9 01/14/2019 Appointment: Lita Barakat WPtel: [address] [place], [place] [id number] Hospital Follow Up 01/14/2019 Visit Diagnosis Plan: [...] J96.11 12/25/2018 Appointment: Lita Barakat WPtel: [address] [facility] Hospital Follow Up 12/25/2018 Appointment: Lita Barakat WPtel: [address] [facility] CANCELED 12/23/2018 Appointment: Ines Banerjee [facility] CANCELED 12/20/2018 Visit Diagnosis Plan: Acute recurrent [...] ICD-10 : I10 12/09/2018 Appointment: Ines Banerjee [id number] LAB 12/09/2018 Patient Education: cefdinir- [employer] C[employer]on [id number] [email or web address]/getResource/[email or web address] Completed 12/09/2018 Visit Diagnosis Plan: Candidal stomatitis Discussion: Diflucan for 5 days Hold atorvastatin while taking ICD-9 : 112.0 ICD-10 : B37.0 12/05/2018 Appointment: Lita Barakat WPtel: [address] [place], [place] [id number] ACUTE ILLNESS 12/05/2018 Patient Education: fluconazole- [employer] Coupon [id number] [email or web address]/getResource/[email or web address] Completed 12/05/2018 Appointment: Lita Barakat WPtel: [address] [place], [place] [id number] NO SHOW 11/11/2018 Visit Plan: [...] : J01.91 10/23/2018 Appointment: Lita Barakat WPtel: [address] [place], [place] [id number] ACUTE ILLNESS 10/23/2018 Patient Education: prednisone- [employer] Coupon [id number] [email or web address]/resources/getResource/61/[email or web address] Completed 10/23/2018 Care Plan: A1C HPLC LOINC : 60652-3 Pending 09/10/2018 Care Plan: COMPREHEN METABOLIC PANEL LEILA NC : 79673-3 Pending 09/10/2018 Care Plan: CBC Pending 09/10/2018 [...] : G25.81 08/21/2018 Appointment: Lita Barakat WPtel: [address] [place] [address] ACUTE ILLNESS 08/21/2018 Care Plan: Referral Order SNOMED-CT : 30 3322405 Pending 08/21/2018 Visit Diagnosis Plan: Chronic obstructiv [...] : G25.81 08/07/2018 Appointment: Lita Barakat WPtel: [address] [place] [address] LM FOLLOW UP 08/07/2018 Appointment: Lita Barakattel: [address] [place] [address] 07/18/18 1210---see note in chart (km) CANCELED 07/18/2018 Visit Diagnosis Plan: Chronic obstructiv e pulmonary disease with acute lower respiratory infection Discussion: Solumedrol 125mg IM Change t o trelagy 1 inhalation daily Use SVNs with albuterol q4hrs To ER this weekend if worsens Monitor weight/swelling ICD-9 : 496 ICD-10 : J44.0 05/23/2018 Appointment: Lita Barakattel: [address] [place] [address] ACUTE ILLNESS 05/23/2018 Patient Education: Patient Medication Summary Completed 05/23/2018 Visit Diagnosis Plan: Candidal stomatitis Discussion: Diflucan for 7 more days--hold atrovastatin while taking ICD-9 : 112.0 ICD-10 : B37.0 05/02/2018 Appointment: Lita Barakat WPtel: [phone] [id number] FOLLOW UP 05/02/2018 Patient Education: Patient Medication [...] ICD-10 : J44.0 04/29/2018 Appointment: Autumn Oneil [address] [place], [place] [id number] ACUTE ILLNESS 04/29/2018 Patient Education: Patient Medication [...] : J44.0 04/22/2018 Appointment: Lita Barakat WPtel: [address] [place], [place] [id number] Hospital Follow Up 04/22/2018 Patient Education: Patient Medication Summary Completed 04/22/2018 Appointment: Lita Barakat WPtel: [address] [place], [place] [phone] 04/09/18 1640---see message in chart from today [...] : M17.11 01/28/2018 Appointment: Lita Barakat WPtel: [address] [place], [place] [id number] ACUTE ILLNESS 01/28/2018 Patient Education: Patient Medication Summary Completed 01/28/2018 Care Plan: Referral Order SNOMED-CT : 30 1408180 Pending 01/28/2018 Care Plan: Referral Order SNOMED-CT : 30 5939475 Pending 01/28/2018 Visit Diagnosis Plan: Functional dyspepsia Discussion: Protonix Call in 1 week on how doing ICD-9 : 536.8 ICD-10 : K30 01/23/2018 Visit Diagnosis Plan: Pain in right knee Discussion: T opical voltaren gel QID ICD-9 : 719.46 ICD-10 : M25.561 01/23/2018 Appointment: Lita Barakat WPtel: [address] [place] [address] ACUTE ILLNESS 01/23/2018 Patient Education: Patient Medication [...] N39.0 01/02/2018 Appointment: Lita Barakat WPtel: [phone] ACUTE ILLNESS 01/02/2018 Patient Education: Patient [...] ICD-10 : J44.1 12/28/2017 Appointment: Autumn Oneil [address] [place] [address] Consult 12/28/2017 Patient Education: Patient Medication Summary [...] ICD-10 : J20.9 12/21/2017 Appointment: Autumn Oneil [address] [place], [place] [id number] ACUTE ILLNESS 12/21/2017 Patient Education: Patient Medication Summary Completed 12/21/2017 Care Plan: X-RAY EXAM OF KNEE 1 OR 2 right LEILA NC : 53376-9 Pending 12/18/2017 Visit Diagnosis Plan: Pain in [...] ICD-10 : J44.0 12/17/2017 Appointment: Autumn Oneil [address] [place], [place] [id number] ACUTE ILLNESS 12/17/2017 Patient Education: Patient Medication Summary Completed 12/17/2017 Visit Diagnosis Plan: Unilateral primary osteoarthriti s, right knee Discussion: Right knee injection as above Warned of elevated BS after injection ICD-9 : 715.96 ICD-10 : M17.11 12/11/2017 Appointment: Lita Barakat WPtel: [phone] [facility] 12/11/2017 Patient Education: Patient Medication Summary Completed 12/11/2017 Visit Diagnosis Plan: Actinic keratosis Discussion: Cr yotherapy as above If persists then will need excision by Dr. Swanson ICD-9 : 702.0 ICD-10 : L57.0 11/07/2017 Appointment: Lita Barakat WPtel: [address] [place] [address] ACUTE ILLNESS 11/07/2017 Patient Education: Patient Medication [...] : S61.411S 10/17/2017 Appointment: Lita Barakat WPtel: [address] [place] [address] ER Follow UP 10/17/2017 Patient Education: Patient Medication Summary Completed 10/17/2017 Appointment: Lita Barakat WPtel: [address] [place] [address] [place] Consult 08/15/2017 Visit Diagnosis Plan: Chronic [...] ICD-10 : J44.0 08/02/2017 Appointment: Autumn Oneil [address] [place] [address] ACUTE ILLNESS 08/02/2017 Patient Education: Patient Medication Summary Completed 08/02/2017 Patient Education: Patient Medication Summary Completed 07/31/2017 Care Plan: CHEST X-RAY 2VW FRONTAL&LATL LOINC : 58424-0 Pending 07/31/2017 Appointment: Lita Barakat WPtel: [address] [place], [place] [phone] [place] INJECTION 07/24/2017 Patient Education: Patient Medication [...] ICD-10 : J44.1 07/02/2017 Appointment: Autumn Oneil [address] [place] [address] ACUTE ILLNESS 07/02/2017 Patient Education: Patient Medication Summary Completed 07/02/2017 Care Plan: CHEST X-RAY 2VW FRONTAL&LATL LOINC : 78584-9 Pending 07/02/2017 Care Plan: MRI LUMBAR SPINE W/O DYE LOIN C : 51658-7 Pending 05/30/2017 Visit Plan: MRI at [facility] [place] codone 5.325 1 po q 4-6 hours prn pain #40 NR and Cyclobenzaprine (ERx) Continue warm packs for pain RTC if no improvement 05/29/2017 Appointment: Ruchi Buchanan WPtel: [address] [place], [place] [phone] ACUTE ILLNESS 05/29/2017 Patient Education: Patient Medication Summary Completed 05/29/2017 Appointment: Lita Barakat WPtel: [address] [place], [place] [address] [place] CANCELED 05/24/2017 Patient Education: Patient Medication Summary Completed 05/22/2017 Care Plan: X-RAY EXAM L-S SPINE 2/3 VWS LOINC : 25911-6 Pending 05/22/2017 Appointment: Lita Barakat WPtel: [address] [place], [place] [phone] [place] LAB 04/17/2017 Patient Education: Patient Medication Summary Completed 04/17/2017 Referral: Cassidy Demetrius WPtel: 12[address] [facility]6[address] Referral Initiated 04/05/2017 Appointment: Lita Barakat WPtel: [address] [place], [place] [phone] 03/30/17 0930---spoke with patient about ointments (km Consult 03/30/2017 Appointment: Lita Barakat WPtel: [address] [place], [place] [phone] 03/29/17 1320---spoke with patient, requip refilled wasn't received at pharmacy so verbally called (km) Consult 03/29/2017 Patient Education: Patient Medication Summary Completed 03/01/2017 Care Plan: CHEST X-RAY 2VW FRONTAL&LATL LOINC : 86413-5 Pending 03/01/2017 Visit Diagnosis Plan: Bursitis of left shoulder Discus yesi: Injection as above ICD-9 : 726.10 ICD-10 : M75.52 02/01/2017 Appointment: Lita Barakat WPtel: [address] [place], [place] [phone] 01/31 confirmed ~sl WORK IN 02/01/2017 Patient Education: Patient Medication Summary Completed 02/01/2017 Care Plan: X-RAY EXAM OF SHOULDER LOINC : 33300-4 Pending 01/30/2017 Visit Plan: May take OTC Tylenol/Ibuprof en as directed XRay at [facility] of left shoulder Tramadol 50mg 1 po q 6 hours prn pain called to [facility]. Sedation warning given (no driving, etc) RTC if no improvement 01/29/2017 Appointment: Ruchi Buchanan WPtel: [address] [place], [place] [phone] ACUTE ILLNESS 01/29/2017 Appointment: Ruchi Buchanan WPtel: [address] [place] [address] ACUTE ILLNESS 01/29/2017 Patient Education: Patient Medication Summary Completed 01/29/2017 Appointment: Lita Barakattel: [address] [place] [address] [place] Consult 01/10/2017 Appointment: Lita Barakat WPtel: [address] [place] [address] 12/27/2016 Patient Education: Patient Medication Summary Completed [...] : R53.83 12/21/2016 Appointment: Lita Barakat WPtel: [address] [place] [address] ACUTE ILLNESS 12/21/2016 Patient Education: Patient Medication Summary Completed 12/21/2016 Appointment: Lita Barakat WPtel: [address] [place] [address] CANCELED 12/18/2016 Visit Diagnosis Plan: Restless legs [...] D64.9 12/14/2016 Appointment: Lita Barakat WPtel: [phone] 12/13 confirmed ~sl WORK IN 12/14/2016 Appointment: Lita Barakat WPtel: [address] [place], [place] [id number] [place] CANCELED 12/14/2016 Patient Education: Patient Medication Summary Completed 12/14/2016 Appointment: Lita Barakat WPtel: [address] [place], [place] [id number] [place] LAB 12/12/2016 Patient Education: Patient Medication Summary Completed 12/12/2016 Appointment: Lita Barakat WPtel: [address] [place] [phone] in ER this weekend--called for reports Consult 12/11/2016 Appointment: Lita Barakat WPtel: [address] [place], [place] [id number] [place] CANCELED 12/04/2016 Visit Diagnosis Plan: Pneumonia, [...] : G25.81 11/14/2016 Appointment: [facility] [facility] 11/14/2016 Patient Education: Patient Medication Summary Completed 11/14/2016 Appointment: Lita Barakat WPtel: [address] [place], [place] [phone] [place] RESCHEDULED 11/02/2016 Visit Diagnosis Plan: Candidal stomatitis Discussion: Diflucan and Nystatin Hold atorvastatin while taking diflucan ICD-9 : 112.0 ICD-10 : B37.0 10/31/2016 Appointment: Lita Barakat WPtel: [address] [place] [address] ACUTE ILLNESS 10/31/2016 Patient Education: Patient Medication Summary Completed 10/31/2016 Appointment: Lita Barakat WPtel: [address] [place] [address] [place] Consult 10/23/2016 Appointment: Lita Barakat WPtel: [address] [place], [place] [phone] [place] CANCELED 10/18/2016 Visit Plan: Rx as above Wear O2 at all t imes as instructed by Dr Chacon Continue breathing treatments Supportive care otherwise reviewed Follow up ingrid if not improving 10/03/2016 Appointment: Lita Barakat WPtel: [address] [place], [place] [phone] [place] CANCELED 10/03/2016 Appointment: Magda Toth [address] [place] [address] ACUTE ILLNESS 10/03/2016 Patient Education: Patient Medication Summary Completed 10/03/2016 Visit Plan: Titrate requip to 1.5mg x 1 week Call if not helpful and will increase to 2mg qHS NO MORE nyquil at bedtime - discussed potential effects of decongestants on heart, oversedating himself, etc Will increase requip, then amitriptyline if needed to desired effect 09/04/2016 Appointment: Magda Toth [address] [place] [address] ACUTE ILLNESS 09/04/2016 Patient Education: Patient Medication Summary Completed 09/04/2016 Visit Plan: Stop requip and try elavil C ryotherapy as above See ENT for removal of right ear lesion 08/22/2016 Appointment: Lita Barakat WPtel: [address] [place] [address] ACUTE ILLNESS 08/22/2016 Patient Education: Patient Medication Summary Completed 08/22/2016 Visit Plan: Trial of requip 1mg q HS Res tart zoloft Recheck 1month 08/10/2016 Appointment: Lita Barakat WPtel: [address] [place] [address] ACUTE ILLNESS 08/10/2016 Patient Education: Patient Medication Summary Completed 08/10/2016 Visit Plan: Stop HCTZ Flagyl for diarrhe a Hydrate Discussed meds for restless legs Zofran prn Nausea 07/06/2016 Appointment: Lita Barakat WPtel: [address] [place] [address] 07/05 confirmed~sl Hospital Follow Up 07/06/2016 Patient Education: Patient Medication Summary Completed 07/06/2016 Visit Plan: Reviewed with Dr Gasper Palacios sidering his recent history, instructed him to go straight to the ER called to notify her so she can meet him there 06/22/2016 Appointment: Magda Toth [address] [place] [address] ACUTE ILLNESS 06/22/2016 Patient Education: Patient Medication Summary Completed 06/22/2016 Visit Plan: Continue current meds Prevna r 13 and High Dose Flu given 06/13/2016 Appointment: Lita Barakat WPtel: [address] [place] [address] 06/13 confirmed~sl WORK IN 06/13/2016 Patient Education: Patient Medication Summary Completed 06/13/2016 Appointment: Lita Barakat WPtel: [address] [place] [address] just went over current medications CANCELED 06/08/2016 Visit Plan: Reviewed POC with Dr Barakat Stat cbc, cmp, d dimer, troponin, bnp, ekg, cxr If any worsening of symptoms while awaiting results, patient instructed to go to ER or call 911 06/01/2016 Appointment: Magda Toth 2[address] [facility] ACUTE ILLNESS 06/01/2016 Patient Education: Patient Medication Summary Completed 06/01/2016 Referral: José Miguel Swanson WPtel: [address] 04/[address] swanson's office, patient is [...] eval and treatment 04/26/2016 Appointment: Magda Toth 2[address] [facility] ACUTE ILLNESS 04/26/2016 Patient Education: Patient Medication Summary Completed 04/26/2016 Care Plan: Referral Order SNOMED-CT : 30 0132336 Pending 04/26/2016 Visit Plan: Left ear flushed after conse nt with warm water with peroxide with ear syringe Patient tolerated well Ear exam is wnl following flushing Follow up PRN 04/05/2016 Appointment: Magda Toth Lian[facility]6[address] ACUTE ILLNESS 04/05/2016 Patient Education: Patient Medication Summary Completed 04/05/2016 Visit Plan: Increase Levemir to 25u sc d aily Increase sertraline to 2 full tablets daily--200mg Debrox or cerumenex to bilateral ears q HS for 3 nights then flush or fwup for fushing Check lab in 2mos then fwup 04/03/2016 Appointment: Lita Barakat WPtel: [address] [place], [place] [phone] 03/31 7 lm ~sl FOLLOW UP 04/03/2016 Patient Education: Patient Medication Summary Completed 04/03/2016 Visit Plan: Patient informed of correct dosage of levemir and how to administer. Patient verbalizes understanding and will call if any questions/concerns. 10 Units of Levemir given in office SC to right lower abdom en. Patient tolerated well. Site without redness/irritation. 03/13/2016 Appointment: Lita Barakat WPtel: [address] [place], [place] [phone] SPECIAL 03/13/2016 Patient Education: Patient Medication Summary Completed 03/13/2016 Appointment: Lita Barakat WPtel: [address] [place], [place] [phone] LAB 03/06/2016 Patient Education: Patient Medication Summary Completed 03/06/2016 Visit Plan: Patient saw Dr. Chacon this week and was given prednisone taper for COPD Continue current meds Accuchecks daily Patient will return on Sunday morning for fasting lab incuding CBC, CMP, TSH, free T4, HbA1C, Lipids, Testosterone, PSA 03/02/2016 Appointment: Lita Barakat WPtel: [address] [place] [address] 03/01 confirmed ~sl FOLLOW UP 03/02/2016 Patient [...] doing 02/17/2016 Appointment: Lita Barakat WPtel: [address] [place] [address] WORK IN 02/17/2016 Patient Education: Patient Medication Summary Completed 02/17/2016 Visit Plan: Xrays to further evaluate Alvarez spect heel spur(s) Will call with results Has had injections in the past that were helpful Dr Barakat can do them or can refer to podiatry if warranted 02/14/2016 Appointment: Magda Toth [address] [place] [address] ACUTE ILLNESS 02/14/2016 Patient Education: Patient Medication Summary Completed 02/14/2016 Visit Plan: Increase Zoloft to 150mg cooper ly 01/31/2016 Appointment: Lita Barakat WPtel: [address] [place], [place] [id number] [place] 01/26 confirmed `sl FOLLOW UP 01/31/2016 Patient Education: Patient Medication Summary Completed 01/31/2016 Visit Plan: Decrease citalopram to 20mg q AM for 1 week then stop Start zoloft 50mg q HS for 1 week then increase to 100mg q HS 12/30/2015 Appointment: Lita Barakat WPtel: [address] [place], [place] [id number] [place] 12/28 confirmed~sl ACUTE ILLNESS 12/30/2015 Patient Education: Patient Medication Summary Completed 12/30/2015 Visit Plan: Check Neck US 12/16/2015 Appointment: Lita Barakat WPtel: [address] [place], [place] [phone] 12/14 lm ~sl 12/15 confirmed-sp FOLLOW UP 12/16/2015 Patient Education: Patient Medication Summary Completed 12/16/2015 Care Plan: US EXAM OF HEAD AND NECK LOIN C : 22417-5 Ordered 12/16/2015 Appointment: Stephanie Rios WPtel: [address] [place], [place] [phone] [place] 12/09 confirmed-sp 12/12 lm ~sl Patient r kareemwander call and stated he just plain forgot ~sl FOLLOW UP 12/13/2015 Visit Plan: Had changing lesions of fore head and left mastoid area removed earlier today. Follow-up in one week Will proceed with soft tissue ultrasound of neck/ left cervical lymph node if no improvement antibiotics Clindamycin 300mg PO TID 12/06/2015 Appointment: Stephanie Rios WPtel: [address] [place], [place] [id number] ACUTE ILLNESS 12/06/2015 Patient Education: Patient Medication Summary Completed 12/06/2015 Referral: Lisbeth Darby WPtel: [facility] [address] [facility] 11/18/15 called luther at [facility] office and confirmed time and date of appointment with patient~sl Initiated 11/18/2015 Visit Plan: Referral to Dermatology for removal of facial skin lesions Cefdinir PO bid Topical Mupirocin to skin lesions bid 11/15/2015 Appointment: Stephanie Rios WPtel: [address] [place], [place] [phone] ACUTE ILLNESS 11/15/2015 Patient Education: Patient Medication Summary Completed 11/15/2015 Visit Plan: Continue current meds Accuch ecks daily Fwup with ophthamology as scheduled Will check lab in 3mos then fwup due to recent meds that will affect blood sugar 10/05/2015 Appointment: Lita Barakat WPtel: [address] [place], [place] [phone] 10/04/15 appt confirmed cn Annual Well Visit 08/2016 Patient Education: Patient Medication Summary Completed 10/05/2015 Visit Plan: Trajenta -1 sample box given Return visit in 6 weeks for fasting labs Notify for worsening symptoms such as Increased redness, swelling, pain or drainage of Rt. knee 07/22/2015 Appointment: Stephanie Rios WPtel: [address] [place], [place] [phone] 07/21 vm left cn FOLLOW UP 07/22/2015 Patient Education: Patient Medication Summary Completed 07/22/2015 Visit Plan: Continue to change dressing twice daily and apply Mupirocin Complete Doxycycline as directed. Follow-up for worsening symptoms, such as increased swelling, redness or pain. 07/01/2015 Appointment: Stephanie Rios WPtel: [address] [place], [place] [phone] FOLLOW UP 07/01/2015 Patient Education: Patient Medication Summary Completed 07/01/2015 Visit Plan: Pressure dressing applied to draining wound left knee. Instructed to change dressing twice daily and continue Mupirocin topical Doxycycline PO bid x 10 days Wound culture obtained. Wound tissue sent to pathology Follow-up in 3 days 06/28/2015 Appointment: Stephanie Rios WPtel: [address] [place], [place] [phone] ACUTE ILLNESS 06/28/2015 Patient Education: Patient Medication Summary Completed 06/28/2015 Visit Plan: Complete antibiotics Follow- up for increased tenderness, swelling or drainage. 06/09/2015 Appointment: Stehpanie Rios WPtel: [facility] 06/08/15 lm FOLLOW UP 06/09/2015 Patient Education: Patient Medication Summary Completed 06/09/2015 Visit Plan: Apply pressure dressing toda y Continue antibiotics and topical Mupirocin Follow-up in 2 days Bursa drained from open area using pressure--serosanguinous drainage 06/07/2015 Appointment: Stephanie Rios WPtel: [facility] 06/04/15 confirmed with patient FOLLOW UP 0 06/07/2015 Patient Education: Patient Medication Summary Completed 06/07/2015 Visit Plan: Wound culture Lt. knee Apply mupirocin to open wound bid Clindamycin 600 mg PO bid x 10 days Follow-up on Sunday06/03/2015 Appointment: Stephanie Rios WPtel: [address] [place], [place] [phone] ACUTE ILLNESS 06/03/2015 Patient Education: Patient Medication Summary Completed 06/03/2015 Visit Plan: Accuchecks daily Check CMP, HbA1C today Patient is noncompliant with meds and diet but patient says he is doing everything he is supposed to do Wants to try performomist instead of albuterol in SVN 06/01/2015 Appointment: Lita Barakat WPtel: [address] [place], [place] [id number] 05/28 appt confirmed cn FOLLOW UP 06/01/20 Patient Education: Patient Medication Summary Completed 06/01/2015 Visit Plan: Change Breo Ellipta to Advai r 500/50 1 p BID this next month Continue turdoza Use albuterol prn Check CMP, HbA1C today Accuchecks daily Cryotherapy as above 02/25/2015 Appointment: Lita Barakat WPtel: [facility] 02/24 appt confirmed and explained needed payment he said ok FOLLOW UP 02/25/2015 Patient Education: Patient Medication Summary Completed 02/25/2015 Referral: Lopez Chacon [facility] [address] [facility] C&D [id number] US Will put patient on cancellation list Initiated 12/08/2014 Appointment: Lita Barakat WPtel: [address] [place] [address] Hospital Follow Up 10/29/2014 Visit Plan: Finish prednisone Continue S VNs with albuterol QID See pulmonology and start Pulmonary rehab Once again discussed taking it easy this winter--that he is high risk for exacerbation 10/27/2014 Appointment: Lita Barakat WPtel: [address] [place] [address] FOLLOW UP 10/27/2014 Patient Education: Patient Medication Summary Completed 10/27/2014 Appointment: Lita Barakat WPtel: [address] [place], [place] [address] FOLLOW UP 10/26/2014 Appointment: Stephanie Rios WPtel: [address] [place] [address] WORK IN 10/21/2014 Patient Education: Patient Medication Summary Completed 10/21/2014 Patient Education: Patient Medication Summary Completed 10/19/2014 Visit Plan: Continue oxygen and SVNS wit h duoneb Increase farxiga to 10mg daily Diflucan 100mg daily for 1week 10/06/2014 Appointment: Lita Barakat WPtel: [address] [place], [place] [phone] Moved appt time to 2:45pm FOLLOW UP 2014 Patient Education: Patient Medication Summary Completed 10/06/2014 Visit Plan: Finish omnicef Continue Breo BID and Turdoza Use SVNS with duoneb at least TID for next 2weeks then go to prn 09/21/2014 Appointment: Lita Barakat WPtel: [address] [place] [id number] Hospital Follow Up 09/21/2014 Patient Education: Patient Medication Summary Completed 09/21/2014 Patient Education: [facility] - [employer] - Ventolin HFA - 18+ - Dynamic Portal ID Completed 09/21/2014 Appointment: Stephanie Rios WPtel: [address] [place], [place] [phone] Scheduled by 09/07 patient rescheduled to 09/08 with Stephanie. Hospital Follow Up 09/08/2014 Patient Education: Patient Medication Summary Completed 09/08/2014 Appointment: Stephanie Rios WPtel: [address] [place], [place] [phone] FOLLOW UP 09/02/2014 Patient Education: Patient Medication Summary Completed 09/02/2014 Patient Education: [employer] - Antibi otics, Analgesics 18+, Oral Contraceptives F 18+ Completed 09/02/2014 Appointment: Lita Barakat WPtel: [address] [place], [place] [phone] UA 08/27/2014 Patient Education: Patient Medication Summary [...] prn sleep 08/10/2014 Appointment: Lita Barakat WPtel: [address] [place] [id number] Annual Well Visit 08/10/2014 Patient Education: Patient Medication Summary Completed 08/10/2014 Appointment: Lita Barakat WPtel: [address] [place], [place] [phone] LAB 08/05/2014 Patient Education: Patient Medication Summary Completed 08/05/2014 Visit Plan: ECHO results reviewed Contin ue Breo and Turdoza Pt starts PT this afternoon for back--has had one epidural with no help in pain 05/05/2014 Appointment: Lita Barakat WPtel: [address] [place] [address] FOLLOW UP 05/05/2014 Patient Education: Patient Medication Summary Completed 05/05/2014 Visit Plan: Continue Breo and Turdoza Camargo s heart tests scheduled next week Will see surgeon for removal of skin cancer to neck after done with cardiac workup 03/24/2014 Appointment: Lita Barakat WPtel: [address] [place] [address] FOLLOW UP 03/24/2014 Patient Education: Patient Medication Summary Completed 03/24/2014 Visit Plan: Proceed with cardiology eval uation as patient is has numerous risk factors for CAD Change Symbicort to Breo 1p BID and add Turdorza 1p BID Recheck in weeks Check 2-D ECHO and lexiscan 03/10/2014 Appointment: Lita Barakat WPtel: [address] [place] [address] FOLLOW UP 03/10/2014 Patient Education: Patient Medication Summary Completed 03/10/2014 Visit Plan: Shoulder injection as above Back brace to use when doing any lifting for stability 12/16/2013 Appointment: Lita Barakat WPtel: [address] [place] [address] ACUTE ILLNESS 12/16/2013 Patient Education: Patient Medication Summary Completed 12/16/2013 Visit Plan: Continue symbicort and Turdo za Salt water gargles Omnicef 300mg 2 po daily for 1wk Phenergan with codeine 10/09/2013 Appointment: Lita Barakat WPtel: [address] [place] [address] WORK IN 10/09/2013 Patient Education: Patient Medication Summary Completed 10/09/2013 Appointment: Ruchi Buchanan WPtel: [address] [place] [address] ACUTE ILLNESS 09/18/2013 Patient Education: Patient Medication Summary Completed 09/18/2013 Visit Plan: Check on repeat CXR Finish a bx Start Tradjenta to replace metformin 08/13/2013 Appointment: Lita Barakat WPtel: [address] [place] [address] 08/12 Hospital Follow Up 08/13/2013 Patient Education: Patient Medication Summary Completed 08/13/2013 Visit Plan: Admit to hospital 08/06/2013 Appointment: Stephanie Rios WPtel: [address] [place] [address] ACUTE ILLNESS 08/06/2013 Patient Education: Patient Medication Summary Completed 08/06/2013 Visit Plan: Continue current meds Contin ue accuchecks daily Proceed with stress test due to high risk for CAD 07/16/2013 Appointment: Lita Barakat WPtel: [address] [place] [address] FOLLOW UP 07/16/2013 Patient Education: Patient Medication Summary Completed 07/16/2013 Appointment: Lita Barakat WPtel: [address] [place] [address] LAB 06/25/2013 Patient Education: Patient Medication Summary Completed 06/25/2013 Visit Plan: prednisone and azithromycin. Doing CBC and mycoplasma blood draw. Will continue inhaler and albuterol breathing treatments. 04/09/2013 Appointment: Kimberly Villalba WPtel: [address] [place] [address] ACUTE ILLNESS 04/09/2013 Patient Education: Patient Medication Summary Completed 04/09/2013 Appointment: Lita Barakat WPtel: [address] [place] [address] ACUTE ILLNESS 02/11/2013 Patient Education: Patient Medication Summary Completed 02/11/2013 Appointment: Ruchi Buchanan WPtel: [address] [place] [address] ACUTE ILLNESS 01/31/2013 Patient Education: Patient Medication Summary Completed 01/31/2013 Visit Plan: Cefdinir and medrol dose pac k. Codeine/guiaf cough syrup. Has colonoscopy on Sunday. Pt. is to notify if fever occurs or symptoms worsen. Hydration and rest. 01/20/2013 Appointment: Kimberly Villalba WPtel: [address] [place] [address] ACUTE ILLNESS 01/20/2013 Patient Education: Patient Medication Summary Completed 01/20/2013 Visit Plan: Scopalamine patch and vestib ular exercises 12/19/2012 Appointment: Lita Barakat WPtel: [address] [place] [address] ACUTE ILLNESS 12/19/2012 Patient Education: Patient Medication Summary Completed 12/19/2012 Visit Plan: Dr. Swanson consult if no impr ovement in hearing. Pt. reports he will notify if no better in one week. Willam consult for skin lesion. 10/21/2012 Appointment: Kimberly Villalba WPtel: [address] [place] [address] ACUTE ILLNESS 10/21/2012 Patient Education: Patient Medication Summary Completed 10/21/2012 Appointment: Lita Barakattel: [address] [place] [address] LAB 09/19/2012 Patient Education: Patient Medication Summary Completed 09/19/2012 Visit Plan: Check fasting lab in AM--CMP , Lipids, HbA1C 09/18/2012 Appointment: Lita Barakat WPtel: [address] [place] [address] FOLLOW UP 09/18/2012 Patient Education: Patient Medication Summary Completed 09/18/2012 Appointment: Lita Barakattel: [address] [place] [address] appt time scheduled sooner FOLLOW UP 09/05 Visit Plan: Doxycycline and Prednisone I ncrease SVN to QID Add back Symbicort 160/4.5 2 p BID 08/28/2012 Appointment: Lita Barakat WPtel: [address] [place], [place] [phone] [place] FOLLOW UP 08/28/2012 Patient Education: Patient Medication Summary Completed 08/28/2012 Appointment: Lita Barakat WPtel: [address] [place], [place] [phone] Annual Well Visit 07/10/2012 Patient Education: Patient Medication Summary Completed 07/10/2012 Visit Plan: Finish Z-pack Add Nasonex Ad d Meclizine Vestibular exercises Continue current meds and accuchecks Check lab and fwup in 4mos 05/09/2012 Appointment: Lita Barakat WPtel: [address] [place], [place] [phone] [place] number no longer works FOLLOW UP 2 Patient Education: Patient Medication Summary Completed 05/09/2012 Appointment: Lita Barakat WPtel: [address] [place], [place] [phone] [place] LAB 05/06/2012 Patient Education: Patient Medication Summary Completed 05/06/2012 Appointment: Lita Barakat WPtel: [address] [place], [place] [phone] [place] LAB 05/02/2012 Appointment: Lita Barakat WPtel: [address] [place], [place] [phone] [place] INJECTION 02/05/2012 Patient Education: Patient Medication Summary Completed 02/05/2012 Visit Plan: cefdinir. Will focus on rest and fluids. Pt. reports he is using breathing treatments as needed. Pt. will monitor for worsening symptoms or fever. 10/02/2011 Appointment: Kimberly Villalba WPtel: [address] [place], [place] [phone] ACUTE ILLNESS 10/02/2011 Patient Education: Patient Medication Summary Completed 10/02/2011 Appointment: Lita Barakat WPtel: [address] [place], [place] [phone] [place] INJECTION 08/10/2011 Patient Education: Patient Medication Summary Completed 08/10/2011 Visit Plan: Continue current meds Restar t Advair Restart exercise Flu shot given 08/07/2011 Appointment: Lita Barakattel: [address] [place], [place] [phone] [place] FOLLOW UP 08/07/2011 Patient Education: Patient Medication Summary Completed 08/07/2011 Appointment: Lita Barakattel: [address] [place], [place] [phone] [place] LAB 07/26/2011 Patient Education: Patient Medication Summary Completed 07/26/2011 Visit Plan: ALEKSANDER Carmen Continue Metformin but change to BID Add Lantus 25u sc q PM BS readings in 1wk 04/03/2011 Appointment: Lita Barakattel: [address] [place], [place] [id number] ACUTE ILLNESS 04/03/2011 Patient Education: Patient Medication Summary Completed 04/03/2011 Appointment: Lita Barakat WPtel: [address] [place], [place] [phone] [place] INJECTION 01/19/2011 Patient Education: Patient Medication Summary Completed 01/19/2011 Appointment: Lita Barakattel: [address] [place], [place] [phone] [place] ACUTE ILLNESS 01/18/2011 Patient Education: Patient Medication Summary Completed 01/18/2011 Appointment: Lita Barakattel: [address] [place], [place] [phone] [place] INJECTION 12/21/2010 Patient Education: Patient Medication Summary Completed 12/21/2010 Appointment: Lita Barakattel: [address] [place], [place] [phone] [place] FOLLOW UP 12/19/2010 Patient Education: Patient Medication Summary Completed 12/19/2010 Appointment: Lita Barakat WPtel: [address] [place], [place] [phone] [place] LAB 12/07/2010 Patient Education: Patient Medication Summary Completed 12/07/2010 Appointment: Kimberly Villalba WPtel: [address] [place], [place] [phone] ACUTE ILLNESS 04/05/2010 Patient Education: Patient Medication Summary Completed 04/05/2010 Appointment: Lita Barakat WPtel: [address] [place], [place] [phone] WORK IN 03/14/2010 Patient Education: Patient Medication Summary Completed 03/14/2010 Appointment: Lita Barakat WPtel: [address] [place], [place] [phone] [place] LAB 03/02/2010 Visit Plan: HbA1C in 3mos. Continue Accu checks BID alternating times. Switch lexapro to celexa 01/13/2010 Appointment: Lita Barakat WPtel: [address] [place], [place] [phone] FOLLOW UP 01/13/2010 Patient Education: Patient Medication Summary Completed 01/13/2010 Appointment: Lita Barakat WPtel: [address] [place], [place] [phone] FOLLOW UP 01/11/2010 Visit Plan: Pt. will continue the Avalox and Doxycycline regimen as prescribed the previous day. He has been advised to continue inhalers, breathing treatments and oxygen therapy for at least the weekend. Moderate activity without strenuous exercise. The pt. will seek immediate re-eval if his symptoms worsen. 12/23/2009 Appointment: Kimberly Villalba WPtel: [address] [place], [place] [phone] FOLLOW UP 12/23/2009 Patient Education: Patient Medication [...] tomorrow morning. 12/22/2009 Appointment: Kimberly Villalba WPtel: [address] [place] [address] ACUTE ILLNESS 12/22/2009 Patient Education: Patient Medication Summary Completed 12/22/2009 Appointment: Kimberly Villalba WPtel: [address] [place] [address] FOLLOW UP 12/21/2009 Appointment: Lita Barakat WPtel: [address] [place] [address] [place] INJECTION 12/16/2009 Patient Education: Patient Medication Summary Completed 12/16/2009 Appointment: Kimberly Villalba WPtel: [address] [place] [address] ACUTE ILLNESS 12/13/2009 Patient Education: Patient Medication Summary Completed 12/13/2009 Care Plan: X-RAY EXAM OF SHOULDER lt shoulder (pain ra diates across the shoulder) Hand carried orders to [facility] LOINC : 68334-2 Ordered 12/13/2009 Care Plan: X-RAY EXAM THORAC SPINE 2VWS Hand carried order LOINC : 38864-2 Ordered 12/13/2009 Care Plan: X-RAY EXAM RIBS UNI 2 VIEWS Posterior ribs of lt. side Pt. hand carries order to [facility] LOINC : 78412-3 Ordered 12/13/2009 Referral: José Miguel Swanson WPtel: [address] [address] [place] Referral Appointment Requested Referral: José Miguel Swanson WPtel: [address] [address] [place] Referral Appointment Requested Referral: Chandu Quarles WPtel: [address] [place] [address] Quarles for screening colonoscopy. P atient notified that [facility] office will book appt with him Initiated Referral: Santosh Machado WPtel: [facility] [place] [id number] [place] Referral Appointment Requested Referral: José Miguel Swanson WPtel: [address] [address] [place] Referral Initiated Referral: Lopez Chacon [address] [facility] [place] [address] [place] Referral Initiated Referral: Demetrius Rodriguez WPtel: [address] [address] [place] Referral Appointment Requested Referral: José Miguel Swanson WPtel: [address] [address] [place] Referral Appointment Requested Referral: José Miguel Swanson WPtel: [address] [address] [place] Referral Initiated Instructions Comment . Saline nasal flushes prn. Tylenol/Motr in prn headache. Notify if persists/symptoms worsening. . MRI at [facility] Hydrocodone 5.325 1 po q 4-6 [...] treatments Supportive care otherwise reviewed Follow up inrgid if not improving . Titrate requip to [...] meds that will affect blood sugar . Genetenta -1 sample box given Return visit in [...] Flu shot given . DC actos DC Nella Continue Metformin but change to BID Add [...]
--- OUTSIDE RECORDS SUMMARY | 2019-12-31 00:37 | XMS REPORT | CCD ---
Author Author Leandro Barakat D.O. Organization [facility]AK[facility] DO [facility] Address [address] [place] [address] Phone Care Team Providers Care [facility] Name Role Phone Lita Barakat D.O., PP Unavailable CCM Unavailable Summary Purpose Interface Exchange Insurance Providers Payer name Policy type / Coverage type Covered libertarian ID Effective Begin Date Effective End Date [employer] Medicare Part B [id number] 2018 Unknown Family history Brother Diagnosis Age At Onset Cancer Unknown Father Diagnosis Age At Onset Heart disease Unknown Mother Diagnosis Age At Onset Heart disease Unknown Social History Social History Element Codes Description Effective Dates Tobacco history SNOMED CT: 2283289 Former smoker quit 15 years ago 08/07/2011 [...] R07.9 06/22/2016 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: [...] Fill Instructions Seroquel 50 mg tablet RxNorm: 653737 1 Tablet(s) Oral QPM as ne eded for sleep 10/07/2019 12/05/2019 Active ropinirole 4 mg tablet RxNorm: 294442 3 TABLET(S) BY [facility] DAILY AT BEDTIME FOR RESTLESS LEGS 09/29/2019 12/27/2019 Active Generic For:REQU IP 4 MG TABLET 09/29/2019 7:52:42 AM N O T I C E Last quantity doesn't match original quantity ipratropium 0.5 mg-albuterol 3 mg (2.5 mg base)/3 mL n ebulization soln RxNorm: 2973692 USE 1 VIAL IN NEBULIZER EVERY FOUR HOURS (THIS REPLACES ALBUTEROL SOLUTION) 09/26/2019 10/15/2019 Inactive Generic For:*DUO NEB 2.5-0.5 MG/3 ML SOLN 09/26/2019 9:08:53 AM ropinirole 4 mg tablet RxNorm: 573867 3 TABLET(S) BY [facility] DAILY AT BEDTIME FOR RESTLESS LEGS 09/26/2019 09/28/2019 Inactive Generic For:REQU IP 4 MG TABLET 09/26/2019 9:08:48 AM N O T I C E Last quantity doesn't match original quantity hydrocodone 10 mg-acetaminophen 325 mg tablet RxNorm: 380860 1 Tablet(s) Oral Q4H as needed for pain 09/09/2019 09/09/2019 Inactive hydrocodone 10 mg-acetaminophen 325 mg tablet RxNorm: 140440 1 Tablet(s) Oral Q4H as needed for pain 09/09/2019 09/08/2019 Inactive ondansetron HCl 4 mg tablet RxNorm: 987395 1 Tablet(s) Oral QPM for nausea 08/12/2019 10/10/2019 Inactive ipratropium 0.5 mg-albuterol 3 mg (2.5 mg base)/3 mL n ebulization soln RxNorm: 4679599 1 Unit Dose INH Q4H 08/12/2019 09/25/2019 Inactive replaces albuterol solution Augmentin 875 mg-125 mg tablet RxNorm: 535559 1 Tablet(s) Oral two times a day 08/07/2019 08/17/2019 Inactive prednisone 20 mg tablet RxNorm: 605280 1 Tablet(s) Oral QD 08/05/2008/04/2019 Inactive prednisone 20 mg tablet RxNorm: 616390 1 Tablet(s) Oral QD 08/05/2008/06/2019 Inactive Levaquin 500 mg tablet RxNorm: 803790 1 Tablet(s) Oral QD Replaces azithromycin (z-pack) 07/31/2019 08/05/2019 Inactive Levaquin 500 mg tablet RxNorm: 339119 1 Tablet(s) Oral QD Replaces azithromycin (z-pack) 07/21/2019 07/26/2019 Inactive Levaquin 500 mg tablet RxNorm: 233456 1 Tablet(s) Oral QD Replaces azithromycin (z-pack) 07/21/2019 07/20/2019 Inactive Zithromax Z-Gui 250 mg tablet RxNorm: 494859 Tablet(s) Oral 019 07/22/2019 Inactive Zithromax Z-Gui 250 mg tablet RxNorm: 321672 Tablet(s) Oral 019 07/15/2019 Inactive Symbicort 160 mcg-4.5 mcg/actuation HFA aerosol inhaler RxNo rm: 7929702 2 Puff(s) Inhalation two times a day 07/14/2019 07/14/2019 Inactive Tessalon Perles 100 mg capsule RxNorm: 756906 1 Capsule(s) Oral Q8H as needed 07/14/2019 08/06/2019 Inactive Seroquel 50 mg tablet RxNorm: 425002 1 Tablet(s) Oral QPM as ne eded for sleep 07/01/2019 10/06/2019 Inactive ondansetron HCl 4 mg tablet RxNorm: 751748 1 Tablet(s) Oral QPM for nausea 06/24/2019 07/24/2019 Inactive Seroquel 25 mg tablet RxNorm: 195976 1 Tablet(s) Oral every nig ht at bedtime 06/19/2019 06/18/2019 Inactive Seroquel 25 mg tablet RxNorm: 815674 1 Tablet(s) Oral every nig ht at bedtime 06/19/2019 06/30/2019 Inactive trazodone 150 mg tablet RxNorm: 843814 1/2 Tablet(s) PO QHS as needed for sleep 06/11/2019 06/17/2019 Inactive replaces PA on doxep in trazodone 150 mg tablet RxNorm: 275877 1/2 Tablet(s) PO QHS as needed for sleep 05/12/2019 06/11/2019 Inactive replaces PA on doxep in cyanocobalamin (vit B-12) 1,000 mcg/mL injection solution Rx Norm: 259878 1 injection weekly for 4 weeks 1 Milliliter(s) Inj 05/09/2019 No Stop Date Active Vitamin D3 5,000 unit tablet RxNorm: 635675 1 Tablet(s) PO QD 05/09 No Stop Date Active ferrous sulfate 325 mg (65 mg iron) tablet RxNorm: 736947 1 Tab let(s) PO QD 05/09/2019 No Stop Date Active magnesium oxide 400 mg (241.3 mg magnesium) tablet RxNorm: 1 37621 1 Tablet(s) PO QHS 05/09/2019 No Stop Date Active ropinirole 4 mg tablet RxNorm: 270137 3 TABLET(S) BY [facility] DAILY AT BEDTIME FOR RESTLESS LEGS 03/26/2019 06/23/2019 Inactive Generic For:REQU IP 4 MG TABLET 03/26/2019 11:23:36 AM N O T I C E Last quantity doesn't match original quantity pantoprazole 40 mg tablet,delayed release RxNorm: 119964 Tablet(s) TAKE 1 TABLET BY MOUTH DAILY FOR STOMACH 03/24/2019 06/21/2019 Inactive Gener ic For:PROTONIX 40MG TAB EC 01/03/2019 1:23:44 PM hydroxyzine HCl 10 mg tablet RxNorm: 797319 1 Tablet(s) PO BID as needed 03/24/2019 04/06/2019 Inactive ipratropium-albuterol 0.5 mg-3 mg(2.5 mg base)/3 mL ne bulization soln RxNorm: 6756163 1 Unit Dose INH Q4H 03/21/2019 No Stop Date Active replaces albuterol solution meclizine 12.5 mg tablet RxNorm: 049137 1 Tablet(s) PO BID as neede d 03/21/2019 No Stop Date Active losartan 100 mg tablet RxNorm: 880840 1 Tablet(s) PO QD replace s lisinopril 03/13/2019 09/08/2019 Inactive fluconazole 100 mg tablet RxNorm: 283013 1 Tablet(s) PO QD 03/13/20 19 03/19/2019 Inactive nystatin 100,000 unit/mL oral suspension RxNorm: 746113 5 Unit( s) PO QID 03/13/2019 03/26/2019 Inactive tramadol 50 mg tablet RxNorm: 298690 1 Tablet(s) PO TID as needed for pain TAKE 2 TABS OF EXTRA STRENGTH TYLENOL WITH EACH DOSE 03/10/2019 04/06/2019 Inactive Generic For:*ULTRAM 50 MG TABLET 01/15/2019 4:55:26 PM Sinemet CR 50 mg-200 mg tablet,extended release RxNorm: 8343 41 1 Tablet(s) PO TID 02/26/2019 08/24/2019 Inactive Generic For:*SIN EMET CR 50/200 TABLET SA 07/08/2018 3:09:11 PM trazodone 150 mg tablet RxNorm: 661488 1/2 Tablet(s) PO QHS as needed for sleep 02/13/2019 02/12/2019 Inactive trazodone 150 mg tablet RxNorm: 472839 1/2 Tablet(s) PO QHS as needed for sleep 02/13/2019 02/25/2019 Inactive replaces PA on doxep in doxepin 10 mg capsule RxNorm: 8293305 1-2 Capsule(s) PO QHS prn sleep 02/13/2019 02/13/2019 Inactive Novolog U-100 Insulin aspart 100 unit/mL subcutaneous soluti on RxNorm: 020856 INJECT 10 UNIT(S) SUBCUTANEOUSLY BEFORE MEALS 01/31/2019 05/30/2019 In active 01/31/2019 1:39:10 PM ipratropium-albuterol 0.5 mg-3 mg(2.5 mg base)/3 mL ne bulization soln RxNorm: 7532625 1 Unit Dose INH Q4H 01/17/2019 03/20/2019 Inactive replaces albuterol solution tramadol 50 mg tablet RxNorm: 265030 1 Tablet(s) PO TID as needed for pain TAKE 2 TABS OF EXTRA STRENGTH TYLENOL WITH EACH DOSE 01/15/2019 02/03/2019 Inactive Generic For:*ULTRAM 50 MG TABLET 01/15/2019 4:55:26 PM Sinemet CR 50 mg-200 mg tablet,extended release RxNorm: 8343 41 1 Tablet(s) PO BID 01/03/2019 02/25/2019 Inactive Generic For:*SIN EMET CR 50/200 TABLET 07/08/2018 3:09:11 PM losartan 100 mg tablet RxNorm: 916667 1 Tablet(s) PO QD replace s lisinopril 01/03/2019 03/12/2019 Inactive Symbicort 160 mcg-4.5 mcg/actuation HFA aerosol inhaler RxNo rm: 3850365 2 Puff(s) INH BID 01/03/2019 01/02/2019 Inactive pantoprazole 40 mg tablet,delayed release RxNorm: 326218 TAKE 1 TABLET BY MOUTH DAILY FOR STOMACH 01/03/2019 03/23/2019 Inactive Generic For:ME OTONIX 40MG TAB EC 01/03/2019 1:23:44 PM nystatin 100,000 unit/mL oral suspension RxNorm: 664366 Unit(s) 5 Unit(s) PO QID swish and spit 01/02/2019 11/11/2019 Inactive Incruse Ellipta 62.5 mcg/actuation powder for inhalation RxN orm: 0533155 1 Capsule(s) INH QD 12/25/2018 No Stop Date Active Tessalon Perles 100 mg capsule RxNorm: 377823 1 Capsule(s) PO T ID for cough 12/25/2018 02/25/2019 Inactive Medrol (Gui) 4 mg tablets in a dose pack RxNorm: 474644 Tablet(s) PO Use as directed 12/23/2018 01/02/2019 Inactive Levemir FlexTouch U-100 Insulin 100 unit/mL (3 mL) sub cutaneous pen RxNorm: 528531 20 Unit(s) SQ QD with pen needles 12/13/2018 05/11/2019 Inactiv e prednisone 20 mg tablet RxNorm: 608194 1 Tablet(s) PO QD 12/12/2018 0 12/11/2018 Inactive prednisone 20 mg tablet RxNorm: 635136 1 Tablet(s) PO QD 12/12/2018 0 12/16/2018 Inactive promethazine 6.25 mg-codeine 10 mg/5 mL syrup RxNorm: 574446 5 Milliliter(s) PO QHS as needed for cough 12/09/2018 12/18/2018 Inactive cefdinir 300 mg capsule RxNorm: 622038 1 Capsule(s) PO BID 12/10/19 19 12/18/2018 Inactive fluconazole 100 mg tablet RxNorm: 352411 1 Tablet(s) PO QD 12/06/19 19 12/08/2018 Inactive ropinirole 4 mg tablet RxNorm: 313550 3 Tablet(s) PO QHS for re stless legs 12/04/2018 03/03/2019 Inactive Novolog U-100 Insulin aspart 100 unit/mL subcutaneous soluti on RxNorm: 453777 INJECT 10 UNIT(S) SUBCUTANEOUSLY BEFORE MEALS 12/04/2018 01/30/2019 In active 12/04/2018 10:02:42 AM nystatin 100,000 unit/mL oral suspension RxNorm: 234551 5 Unit(s) PO QID swish and spit 11/25/2018 12/18/2018 Inactive ropinirole 4 mg tablet RxNorm: 512227 3 Tablet(s) PO QHS for re stless legs 11/04/2018 12/03/2018 Inactive prednisone 20 mg tablet RxNorm: 112562 1 Tablet(s) PO BID 10/23/2018 10/29/2018 Inactive ropinirole 4 mg tablet RxNorm: 507016 3 Tablet(s) PO QHS for re stless legs 10/14/2018 11/04/2018 Inactive pantoprazole 40 mg tablet,delayed release RxNorm: 183798 1 Tablet(s) PO QD forstomach 10/10/2018 01/02/2019 Inactive Symbicort 160 mcg-4.5 mcg/actuation HFA aerosol inhaler RxNo rm: 3097115 2 Puff(s) INH BID 10/10/2018 01/03/2019 Inactive Novolog U-100 Insulin aspart 100 unit/mL subcutaneous soluti on RxNorm: 966616 INJECT 10 UNIT(S) SUBCUTANEOUSLY BEFORE MEALS 10/10/2018 12/03/2018 In active 10/10/2018 11:30:01 AM Sinemet CR 50 mg-200 mg tablet,extended release RxNorm: 8343 41 1 Tablet(s) PO BID 09/26/2018 01/03/2019 Inactive Generic For:*SIN EMET CR 50/200 TABLET SA 07/08/2018 3:09:11 PM ropinirole 4 mg tablet RxNorm: 735366 2 Tablet(s) PO QHS for re stless legs 09/18/2018 10/13/2018 Inactive metformin ER 1,000 mg tablet,extended release 24hr RxNorm: 1 537147 1 Tablet(s) PO BID 09/09/2018 12/18/2018 Inactive ropinirole 4 mg tablet RxNorm: 907541 2 Tablet(s) PO QHS for re stless legs 08/21/2018 09/17/2018 Inactive doxycycline hyclate 100 mg capsule RxNorm: 0332172 1 Capsule(s) PO BID 08/07/2018 08/13/2018 Inactive ropinirole 4 mg tablet RxNorm: 555346 1 Tablet(s) PO QHS replac es 1mg dose 08/07/2018 08/20/2018 Inactive ropinirole 2 mg tablet RxNorm: 440360 TAKE 3 TABLETS BY MOUTH DAILY AT BEDTIME DO NOT EXCEED 3 TABLETS PER DAY!!!! 07/31/2018 08/06/2018 Inactive Generic For:REQUIP 2 MG TABLET 07/30/2018 3:50:28 PM Symbicort 160 mcg-4.5 mcg/actuation HFA aerosol inhaler RxNo rm: 0437439 2 Puff(s) INH BID 07/12/2018 10/09/2018 Inactive Sinemet CR 50 mg-200 mg tablet,extended release RxNorm: 8343 41 TAKE 1 TABLET BY MOUTH TWICE DAILY 07/08/2018 09/26/2018 Inactive Generic For:*S INEMET CR 50/200 TABLET SA 07/08/2018 3:09:11 PM losartan 100 mg tablet RxNorm: 309163 1 Tablet(s) PO QD replace s lisinopril 06/17/2018 12/13/2018 Inactive Novolog U-100 Insulin aspart 100 unit/mL subcutaneous soluti on RxNorm: 669057 10 Unit(s) SQ AC 06/17/2018 10/09/2018 Inactive albuterol sulfate 2.5 mg/3 mL (0.083 %) solution for n ebulization RxNorm: 525508 Milliliter(s) INH USE 1 VIAL IN NEBULIZE R EVERY FOUR HOURS NEEDED FOR WHEEZING OR SHORTNESS OF BREATH 06/13/2018 01/16/2019 Inactive Generic For:*PROVENTIL 0.83 MG/ML SOLUTN 06/13/2013 2:04:46 PM ropinirole 2 mg tablet RxNorm: 617821 3 Tablet(s) PO QH S DO NOT EXCEED 6MG (3 TABLETS) PER DAY!!!! 06/13/2018 07/31/2018 Inactive atorvastatin 40 mg tablet RxNorm: 638206 Tablet(s) TAKE 1 TABLET BY MOUTH EVERY DAY 05/13/2018 12/18/2018 Inactive Generic For:LIPI TOR 40MG TAB 05/01/2018 8:37:31 AM Sinemet CR 50 mg-200 mg tablet,extended release RxNorm: 8343 41 1 Tablet(s) PO BID 05/08/2018 07/06/2018 Inactive Lidocaine Viscous 2 % mucosal solution RxNorm: 5616425 5 Milliliter(s) PO QID as needed 05/02/2018 08/06/2018 Inactive Diflucan 100 mg tablet RxNorm: 068522 1 Tablet(s) PO QD 05/02/2018 Inactive atorvastatin 40 mg tablet RxNorm: 112150 TAKE 1 TABLET BY MOUTH EVERY DAY 05/01/2018 05/13/2018 Inactive Generic For:LIPITOR 40MG TAB 05/01/2018 8:37:31 AM nystatin 100,000 unit/mL oral suspension RxNorm: 135338 5 Unit(s) PO QID (before meals and at bedtime) 04/24/2018 04/30/2018 Inactive Ventolin HFA 90 mcg/actuation aerosol inhaler RxNorm: 611772 2 Puff(s) INH Q4H as needed one inhaler for home and one inhaler for car 04/23/201812/18 Inactive Mucinex 600 mg tablet, extended release RxNorm: 449337 1 Tablet(s) PO BID for congestion 04/22/2018 05/21/2018 Inactive prednisone 10 mg tablet RxNorm: 895536 Tablet(s) PO as directeds 08/06/2018 Inactive ropinirole 2 mg tablet RxNorm: 131808 3 Tablet(s) PO QH S DO NOT EXCEED 6MG (3 TABLETS) PER DAY!!!! 04/09/2018 05/08/2018 Inactive gabapentin 300 mg capsule RxNorm: 248616 1-2 Capsule(s) PO QHS 0702/201804/08/2018 Inactive ropinirole 2 mg tablet RxNorm: 168216 1 Tablet(s) PO QHS 03/28/2018 0 04/08/2018 Inactive gabapentin 300 mg capsule RxNorm: 701455 1-2 Capsule(s) PO QHS 02/2303/29/2018 Inactive gabapentin 300 mg capsule RxNorm: 940680 1-2 Capsule(s) PO QHS 02/2203/13/2018 Inactive gabapentin 300 mg capsule RxNorm: 813174 2 Capsule(s) PO QHS 201703/11/2018 Inactive ropinirole 2 mg tablet RxNorm: 206562 1 Tablet(s) PO QHS 02/28/2018 0 03/28/2018 Inactive ropinirole 2 mg tablet RxNorm: 049079 1 Tablet(s) PO QHS 02/28/2018 0 02/27/2018 Inactive gabapentin 300 mg capsule RxNorm: 324776 1 Capsule(s) PO QHS 201702/27/2018 Inactive pantoprazole 40 mg tablet,delayed release RxNorm: 378743 1 Tablet(s) PO QD forstomach 01/23/2018 05/22/2018 Inactive Voltaren 1 % topical gel RxNorm: 247561 1 Gram(s) TOP QID to ri ght knee 01/23/2018 02/04/2018 Inactive metformin ER 500 mg tablet,extended release 24hr RxNorm: 860 975 2 Tablet(s) PO BID 01/09/2018 12/08/2018 Inactive Requip 1 mg tablet RxNorm: 758876 1 Tablet(s) PO QHS 01/09/201802/27 Inactive prednisone 20 mg tablet RxNorm: 636923 1 Tablet(s) PO T ID for 3 days then 1 po BID for 3 days then one daily for 3 days 01/02/2018 02/03/2018 Inactiv e Levaquin 500 mg tablet RxNorm: 932185 1 Tablet(s) PO QD 01/02/2018 Inactive ProAir HFA 90 mcg/actuation aerosol inhaler RxNorm: 149672 2 Puff(s) INH Q4H as needed 12/28/2017 No Stop Date Active please switch to ventolin if insurance doesn't cover montelukast 10 mg tablet RxNorm: 205940 1 Tablet(s) PO QD 12/28/2017 02/03/2018 Inactive Levaquin 500 mg tablet RxNorm: 225409 1 Tablet(s) PO QD 12/21/2017 Inactive ProAir HFA 90 mcg/actuation aerosol inhaler RxNorm: 728993 2 Puff(s) INH Q4H as needed 12/21/2017 12/27/2017 Inactive please switch to ventolin if insurance doesn't cover doxycycline hyclate 100 mg tablet RxNorm: 695319 1 Tablet(s) PO BID 12/17/2017 12/26/2017 Inactive Levemir FlexTouch U-100 Insulin 100 unit/mL (3 mL) sub cutaneous pen RxNorm: 986683 20 Unit(s) SQ QD with pen needles---Due for labs 12/11/2017 02/03/2018 Inactive Requip 1 mg tablet RxNorm: 501699 1 Tablet(s) PO QHS 12/10/201712/09 Inactive Requip 1 mg tablet RxNorm: 757123 1 Tablet(s) PO QHS 12/10/201701/09 Inactive albuterol sulfate 2.5 mg/3 mL (0.083 %) solution for n ebulization RxNorm: 890812 Milliliter(s) INH USE 1 VIAL IN NEBULIZE R EVERY FOUR HOURS NEEDED FOR WHEEZING OR SHORTNESS OF BREATH 12/05/2017 06/13/2018 Inactive Generic For:*PROVENTIL 0.83 MG/ML SOLUTN 06/13/2013 2:04:46 PM Tudorza Pressair 400 mcg/actuation breath activated RxNorm: 2445196 1 Puff(s) INH BID 12/03/2017 12/10/2017 Inactive Levemir FlexTouch U-100 Insulin 100 unit/mL (3 mL) sub cutaneous pen RxNorm: 814062 10 Unit(s) SQ QD with pen needles---Due for labs 11/16/2017 12/10/2017 Inactive Zofran ODT 4 mg disintegrating tablet RxNorm: 405146 1 Tablet(s) PO Q4H as needed for nausea 10/17/2017 02/04/2018 Inactive Efudex 5 % topical cream RxNorm: 044577 Application TOP QD prn to precancer skin lesions 10/17/2017 02/03/2018 Inactive Sinemet CR 50 mg-200 mg tablet,extended release RxNorm: 8343 41 1 Tablet(s) PO BID 10/17/2017 02/05/2018 Inactive Sinemet CR 50 mg-200 mg tablet,extended release RxNorm: 8343 41 1 Tablet(s) PO QHS 09/25/2017 10/16/2017 Inactive gabapentin 600 mg tablet RxNorm: 943668 1 Tablet(s) PO BID 08/15/20 17 08/14/2017 Inactive gabapentin 600 mg tablet RxNorm: 543809 1 Tablet(s) PO BID 08/15/20 17 12/10/2017 Inactive Novolog U-100 Insulin aspart 100 unit/mL subcutaneous soluti on RxNorm: 331217 10 Unit(s) SQ AC 08/15/2017 02/03/2018 Inactive Novolog 100 unit/mL subcutaneous solution RxNorm: 693174 10 Uni t(s) SQ AC 08/13/2017 08/14/2017 Inactive prednisone 20 mg tablet RxNorm: 468748 2 Tablet(s) PO QD 08/02/2017 1 10/04/2016 Inactive gabapentin 600 mg tablet RxNorm: 010748 Tablet(s) 1 Tab let(s) PO QHS replaces 300mg dose 07/09/2017 08/14/2017 Inactive Breo Ellipta 100 mcg-25 mcg/dose powder for inhalation RxNor m: 6867907 1 Unit Dose INH QD 07/02/2017 08/30/2017 Inactive Tudorza Pressair 400 mcg/actuation breath activated RxNorm: 8354270 1 Puff(s) INH BID 06/18/2017 12/02/2017 Inactive gabapentin 600 mg tablet RxNorm: 480029 1 Tablet(s) PO QHS repl aces 300mg dose 06/14/2017 07/08/2017 Inactive metformin ER 1,000 mg tablet,extended release 24hr RxNorm: 1 638997 1 Tablet(s) PO BID 05/29/2017 01/08/2018 Inactive cyclobenzaprine 5 mg tablet RxNorm: 954812 1 Tablet(s) PO TID 05/2906/07/2017 Inactive metformin ER 1,000 mg tablet,extended release 24hr RxNorm: 8 16078 1 Tablet(s) PO BID 05/25/2017 05/28/2017 Inactive metformin ER 1,000 mg tablet,extended release 24hr RxNorm: 8 55644 1 Tablet(s) PO BID 05/22/2017 05/24/2017 Inactive Amaryl 2 mg tablet RxNorm: 661685 1 Tablet(s) PO BID 05/01/201702/03 Inactive glimepiride 2 mg tablet RxNorm: 156315 1 Tablet(s) PO BID 04/19/2017 02/03/2018 Inactive ferrous sulfate 325 mg (65 mg iron) tablet RxNorm: 056691 1 Tab let(s) PO QHS 04/17/2017 02/03/2018 Inactive Requip 4 mg tablet RxNorm: 193186 1 Tablet(s) PO BID 04/12/201704/11 Inactive Requip 4 mg tablet RxNorm: 031981 1 Tablet(s) PO BID 04/12/201704/15 Inactive Levemir FlexTouch 100 unit/mL (3 mL) subcutaneous insulin pe n RxNorm: 735453 10 Unit(s) SQ QD with pen needles---Due for labs 04/05/2017 11/15/2017 In active Silenor 3 mg tablet RxNorm: 141897 1 Tablet(s) PO QHS 04/05/201709/25 Inactive ropinirole 4 mg tablet RxNorm: 101534 1 Tablet(s) PO QHS 03/29/2017 0 04/01/2017 Inactive ropinirole 4 mg tablet RxNorm: 293864 1 Tablet(s) PO QHS 03/29/2017 0 03/28/2017 Inactive Requip 4 mg tablet RxNorm: 486888 1 Tablet(s) PO QHS 03/28/201704/01 Inactive gabapentin 600 mg tablet RxNorm: 745677 1 Tablet(s) PO QHS repl aces 300mg dose 03/28/2017 04/15/2017 Inactive Requip 4 mg tablet RxNorm: 083661 1 Tablet(s) PO QHS 03/23/201703/27 Inactive gabapentin 600 mg tablet RxNorm: 995420 1 Tablet(s) PO QHS 03/13/20 17 03/12/2017 Inactive gabapentin 600 mg tablet RxNorm: 988309 1 Tablet(s) PO QHS 03/13/20 17 03/27/2017 Inactive gabapentin 300 mg capsule RxNorm: 812119 1 Capsule(s) PO QPM 201603/12/2017 Inactive Generic For:NEURONTIN 300 MG CAPSULE 01/22/2017 10:10:39 AM losartan 100 mg tablet RxNorm: 087679 1 Tablet(s) PO QD replace s lisinopril 02/21/2017 06/17/2018 Inactive gabapentin 300 mg capsule RxNorm: 602265 TAKE 1 CAPSULE BY MOUT H EVERY EVENING 01/22/2017 02/21/2017 Inactive Generic For:NEURONTI N 300 MG CAPSULE 01/22/2017 10:10:39 AM gabapentin 300 mg capsule RxNorm: 698546 1 Capsule(s) PO QPM 201601/21/2017 Inactive Requip 4 mg tablet RxNorm: 111447 1 Tablet(s) PO QHS 12/21/201603/20 Inactive Effient 10 mg tablet RxNorm: 384260 1 Tablet(s) PO QD 12/12/201612/23 Inactive gabapentin 300 mg capsule RxNorm: 857757 1 Capsule(s) PO QPM 201612/03/2016 Inactive gabapentin 300 mg capsule RxNorm: 180100 1 Capsule(s) PO QPM 201612/13/2016 Inactive Requip 4 mg tablet RxNorm: 985439 1 Tablet(s) PO QHS 11/28/201612/21 Inactive atorvastatin 40 mg tablet RxNorm: 930425 Tablet(s) 1 Tablet(s) PO Q D 11/22/2016 08/18/2017 Inactive atorvastatin 40 mg tablet RxNorm: 197506 1 Tablet(s) PO QD 11/23/19 17 11/21/2016 Inactive ropinirole 1 mg tablet RxNorm: 137935 2.5 Tablet(s) PO QPM for legs/sleep 11/14/2016 11/27/2016 Inactive nystatin 100,000 unit/mL oral suspension RxNorm: 879284 5 Unit(s) PO QID swish and spit 10/31/2016 02/03/2018 Inactive fluconazole 100 mg tablet RxNorm: 312614 1 Tablet(s) PO QD 10/31/19 17 11/09/2016 Inactive doxycycline hyclate 100 mg capsule RxNorm: 5364461 1 Capsule(s) PO BID 10/03/2016 10/12/2016 Inactive Levemir FlexTouch 100 unit/mL (3 mL) subcutaneous insulin pe n RxNorm: 597870 10 Unit(s) SQ QD with pen needles 09/18/2016 04/04/2017 Inactive amitriptyline 25 mg tablet RxNorm: 476523 1 Tablet(s) P O QHS as needed for sleep 09/04/2016 10/17/2016 Inactive ropinirole 1 mg tablet RxNorm: 708917 1.5 Tablet(s) PO QPM for legs/sleep 09/04/2016 11/13/2016 Inactive amitriptyline 25 mg tablet RxNorm: 342792 1 Tablet(s) P O QHS as needed for sleep 08/22/2016 09/03/2016 Inactive clopidogrel 75 mg tablet RxNorm: 969025 1 Tablet(s) PO QD 08/10/2016 10/17/2016 Inactive Zoloft 100 mg tablet RxNorm: 084294 2 Tablet(s) PO QHS 08/10/2016 Inactive atorvastatin 40 mg tablet RxNorm: 304316 1 Tablet(s) PO QD 08/10/2010/17/2016 Inactive ropinirole 1 mg tablet RxNorm: 708747 1 Tablet(s) PO QPM for le gs/sleep 08/10/2016 09/03/2016 Inactive losartan 100 mg tablet RxNorm: 640457 1 Tablet(s) PO QD replace s lisinopril 07/20/2016 02/21/2017 Inactive Zofran 4 mg tablet RxNorm: 413714 1 Tablet(s) PO Q4H as needed for nausea 07/06/2016 10/17/2016 Inactive Flagyl 500 mg tablet RxNorm: 064957 1 Tablet(s) PO TID 07/06/2016 Inactive Plavix 75 mg tablet RxNorm: 075167 1 Tablet(s) PO QD 06/08/201607/05 Inactive isosorbide mononitrate ER 30 mg tablet,extended release 24 h r RxNorm: 093193 1 Tablet(s) PO QAM 06/08/2016 08/09/2016 Inactive atorvastatin 40 mg tablet RxNorm: 637480 1 Tablet(s) PO QD 06/08/20 16 08/09/2016 Inactive hydrochlorothiazide 12.5 mg tablet RxNorm: 554967 1 Tablet(s) PO QA M 06/08/2016 07/05/2016 Inactive metformin ER 1,000 mg tablet,extended release 24hr RxNorm: 8 04361 1 Tablet(s) PO BID 06/08/2016 09/05/2016 Inactive metoprolol tartrate 25 mg tablet RxNorm: 660696 1/2 Tablet(s) PO BI D 06/08/2016 08/09/2016 Inactive Zoloft 100 mg tablet RxNorm: 536987 2 Tablet(s) PO QHS 04/03/2016 Inactive metformin ER 1,000 mg tablet,extended release 24hr RxNorm: 8 31390 Tablet(s) 1 Tablet(s) PO QD 03/30/2016 12/18/2018 Inactive Levemir FlexTouch 100 unit/mL (3 mL) subcutaneous insulin pe n RxNorm: 630009 10 Unit(s) SQ QD 03/09/2016 03/08/2016 Inactive Levemir FlexTouch 100 unit/mL (3 mL) subcutaneous insulin pe n RxNorm: 994991 10 Unit(s) SQ QD with pen needles 03/09/2016 03/20/2016 Inactive Mobic 15 mg tablet RxNorm: 234365 1 Tablet(s) PO QD for foot pain 0 02/17/2016 03/17/2016 Inactive Zoloft 100 mg tablet RxNorm: 944758 1 1/2 Tablet(s) PO QHS 01/31/20 16 04/02/2016 Inactive omeprazole 20 mg capsule,delayed release RxNorm: 443196 TAKE 2 CAPSULES BY MOUTH EVERY DAY 01/12/2016 08/09/2016 Inactive Generic For:*CHERYL LOSEC [address] 01/12/2016 8:58:34 AM Zoloft 100 mg tablet RxNorm: 134032 1/2 Tablet(s) PO QH S for 1 week then 1 tablet po q HS 12/30/2015 01/27/2016 Inactive Ventolin HFA 90 mcg/actuation aerosol inhaler RxNorm: 689634 2 Puff(s) INH QID as needed for shortness of breath 12/30/2015 02/03/2018 Inactive [AttnRPh: Saving apply/adjudicate RxGRP:SG20 RxBIN:[id number] RxPCN: ID#:[id number]] metformin ER 1,000 mg tablet,extended release 24hr RxNorm: 8 96388 1 Tablet(s) PO QD 12/20/2015 03/18/2016 Inactive clindamycin 300 mg capsule RxNorm: 244737 1 Capsule(s) PO TID 12/0512/15/2015 Inactive mupirocin 2 % topical cream RxNorm: 909908 TOP to facial lesion s twice daily 11/15/2015 12/15/2015 Inactive cefdinir 300 mg capsule RxNorm: 561270 1 Capsule(s) PO BID 11/15/19 16 11/24/2015 Inactive Medrol (Gui) 4 mg tablets in a dose pack RxNorm: 066170 Tablet(s) PO as directed 10/11/2015 12/15/2015 Inactive albuterol sulfate 2.5 mg/3 mL (0.083 %) solution for n ebulization RxNorm: 582640 INH USE 1 VIAL IN NEBULIZER EVERY FOUR H OURS NEEDED FOR WHEEZING OR SHORTNESS OF BREATH 10/05/2015 10/04/2015 Inactive Generic For:*PRO VENTIL 0.83 MG/ML SOLUTN 06/13/2013 2:04:46 PM doxycycline hyclate 100 mg capsule RxNorm: 0387671 1 Capsule(s) PO BID 10/05/2015 10/14/2015 Inactive albuterol sulfate 2.5 mg/3 mL (0.083 %) solution for n ebulization RxNorm: 989247 Milliliter(s) INH USE 1 VIAL IN NEBULIZE R EVERY FOUR HOURS NEEDED FOR WHEEZING OR SHORTNESS OF BREATH Dx: J44.9 10/05/2015 12/05/2017 Inacti ve Generic For:*PROVENTIL 0.83 MG/ML SOLUTN 06/13/2013 2:04:46 PM albuterol sulfate 2.5 mg/3 mL (0.083 %) solution for n ebulization RxNorm: 568044 3 Milliliter(s) INH USE 1 VIAL IN NEBULI ZER EVERY FOUR HOURS NEEDED FOR WHEEZING OR SHORTNESS OF BREATH 09/06/2015 10/04/2015 Inactive Generic For:*PROVENTIL 0.83 MG/ML SOLUTN 06/13/2013 2:04:46 PM Tradjenta 5 mg tablet RxNorm: 5746366 2 Tablet(s) PO QD 07/22/2015 Inactive albuterol sulfate 2.5 mg/3 mL (0.083 %) solution for n ebulization RxNorm: 682698 3 Milliliter(s) INH USE 1 VIAL IN NEBULI ZER EVERY FOUR HOURS NEEDED FOR WHEEZING OR SHORTNESS OF BREATH 06/29/2015 09/05/2015 Inactive Generic For:*PROVENTIL 0.83 MG/ML SOLUTN 06/13/2013 2:04:46 PM albuterol sulfate 2.5 mg/3 mL (0.083 %) solution for n ebulization RxNorm: 601557 Milliliter(s) INH USE 1 VIAL IN NEBULIZE R EVERY FOUR HOURS NEEDED FOR WHEEZING OR SHORTNESS OF BREATH 06/29/2015 12/04/2017 Inactive Generic For:*PROVENTIL 0.83 MG/ML SOLUTN 06/13/2013 2:04:46 PM doxycycline hyclate 100 mg tablet RxNorm: 437114 1 Tablet(s) PO BID 06/28/2015 07/07/2015 Inactive losartan 100 mg tablet RxNorm: 940853 1 Tablet(s) PO QD -replac es lisinopril 06/14/2015 09/05/2015 Inactive metformin ER 1,000 mg tablet,extended release 24hr RxNorm: 8 55635 1 Tablet(s) PO QD 06/14/2015 09/11/2015 Inactive losartan 100 mg tablet RxNorm: 149311 1 Tablet(s) PO QD -replac es lisinopril 06/14/2015 12/10/2015 Inactive Zocor 20 mg tablet RxNorm: 215319 Tablet(s) Tablet(s) 1 Tablet(s) PO QD -needs lipids labs 06/14/2015 06/14/2015 Inactive atorvastatin 40 mg tablet RxNorm: 662621 1 Tablet(s) PO QD repl aces simvastatin 06/14/2015 12/10/2015 Inactive loratadine 10 mg tablet RxNorm: 680185 Tablet(s) 1 Tablet(s) PO QD for drainage 06/14/2015 06/07/2016 Inactive Celexa 40 mg tablet RxNorm: 847714 1 Tablet(s) PO QD TA KE ONE (1) TABLET BY MOUTH DAILY 06/14/2015 12/29/2015 Inactive Generic For:HARJINDER XA 40 MG TABLET clindamycin 300 mg capsule RxNorm: 642165 2 Capsule(s) PO BID 06/0306/12/2015 Inactive metformin ER 1,000 mg tablet,extended release 24hr RxNorm: 8 62265 1 Tablet(s) PO QD 06/03/2015 06/02/2015 Inactive metformin ER 1,000 mg tablet,extended release 24hr RxNorm: 8 57563 1 Tablet(s) PO QD 06/03/2015 06/13/2015 Inactive mupirocin 2 % topical ointment RxNorm: 736462 TOP apply to open lesion of knee twice daily 06/03/2015 01/30/2016 Inactive Zocor 20 mg tablet RxNorm: 429504 Tablet(s) 1 Tablet(s ) PO QD -needs lipids labs 05/13/2015 06/13/2015 Inactive Celexa 40 mg tablet RxNorm: 128366 1 Tablet(s) PO QD TA KE ONE (1) TABLET BY MOUTH DAILY 05/13/2015 06/13/2015 Inactive Generic For:HARJINDER XA 40 MG TABLET Zocor 20 mg tablet RxNorm: 947543 Tablet(s) 1 Tablet(s ) PO QD -needs lipids labs 02/23/2015 03/24/2015 Inactive loratadine 10 mg tablet RxNorm: 983040 1 Tablet(s) PO QD for dr saenz 12/24/2014 06/13/2015 Inactive Zocor 20 mg tablet RxNorm: 079001 1 Tablet(s) PO QD -needs lipi ds labs 11/17/2014 02/23/2015 Inactive Celexa 40 mg tablet RxNorm: 910440 1 Tablet(s) PO QD 1 Tablet(s) PO QD 1 Tablet(s) PO QD Generic OKAY 11/11/2014 05/13/2015 Inactive Zocor 20 mg tablet RxNorm: 685594 1 Tablet(s) PO QD -needs lipi ds labs 11/11/2014 11/16/2014 Inactive omeprazole 20 mg capsule,delayed release RxNorm: 767205 2 Capsule(s) PO QD TAKE 2 CAPSULES BY MOUTH DAILY 10/27/2014 04/24/2015 Inactive Shena harp For:*PRILOSEC 20 MG CAPSULE trazodone 50 mg tablet RxNorm: 671851 1 1/2 Tablet(s) PO QHS 201412/29/2015 Inactive losartan 100 mg tablet RxNorm: 049573 1 Tablet(s) PO QD -replac es lisinopril 10/26/2014 04/23/2015 Inactive Levaquin 500 mg tablet RxNorm: 099343 1 Tablet(s) PO QD 10/08/2014 Inactive Levaquin 500 mg tablet RxNorm: 404410 1 Tablet(s) PO QD 10/08/2014 Inactive Diflucan 100 mg tablet RxNorm: 586157 1 Tablet(s) PO QD 10/06/2014 Inactive DuoNeb 0.5 mg-3 mg(2.5 mg base)/3 mL solution for nebulizati on RxNorm: 6579492 3 Milliliter(s) INH QID 09/23/2014 08/09/2016 Inactive Ventolin HFA 90 mcg/actuation aerosol inhaler RxNorm: 761540 2 Puff(s) INH QID as needed for shortness of breath 09/21/2014 12/29/2015 Inactive [AttnRPh: Saving apply/adjudicate RxGRP:SG20 RxBIN:[id number] RxPCN: ID#:[id number]] promethazine-codeine 6.25 mg-10 mg/5 mL syrup RxNorm: 402802 1 Teaspoon(s) PO QHS as needed for cough 09/08/2014 09/20/2014 Inactive prednisone 20 mg tablet RxNorm: 191484 1 Tablet(s) PO BID 09/02/2014 09/08/2014 Inactive promethazine-codeine 6.25 mg-10 mg/5 mL syrup RxNorm: 870285 1 Teaspoon(s) PO Q4H 09/02/2014 09/20/2014 Inactive doxycycline monohydrate 100 mg capsule RxNorm: 021640 1 Capsule (s) PO BID 09/02/2014 09/07/2014 Inactive Tessalon Perles 100 mg capsule RxNorm: 993951 1 Capsule (s) PO TID as needed for cough 08/31/2014 09/20/2014 Inactive Actos 15 mg tablet RxNorm: 134894 1 Tablet(s) PO QAM 1 Tablet(s ) PO QAM 08/26/2014 09/20/2014 Inactive loratadine 10 mg tablet RxNorm: 988839 1 Tablet(s) PO QD for dr saenz 08/26/2014 10/26/2014 Inactive Zithromax 500 mg tablet RxNorm: 686537 1 Tablet(s) PO QD 08/25/2014 1 11/01/2013 Inactive Zithromax 500 mg tablet RxNorm: 677128 1 Tablet(s) PO QD 08/25/2014 1 10/25/2013 Inactive Trazadone 75mg Tablet RxNorm: 1 Tablet(s) PO QHS 08/10/20142018 Inactive Zocor 20 mg tablet RxNorm: 835018 1 Tablet(s) PO QD 08/10/20142014 Inactive Trazadone 75mg Tablet RxNorm: 1 Tablet(s) PO QHS as need ed for sleep 08/10/2014 10/08/2014 Inactive Celexa 40 mg tablet RxNorm: 323034 1 Tablet(s) PO QD 1 Tablet(s) PO QD 1 Tablet(s) PO QD Generic OKAY 06/09/2014 10/06/2014 Inactive Actos 15 mg tablet RxNorm: 489434 1 Tablet(s) PO QAM 05/12/201408/26 Inactive lisinopril 20 mg tablet RxNorm: 354527 1 Tablet(s) PO QD 05/12/2014 0 10/26/2014 Inactive TAKE ONE TABLET BY MOUTH EVERY DAY;Gener ic For:*PRINIVIL 20 MG TABLET [AttnRPh: Saving apply/adjudicate RxGRP:SG20 RxBIN:[id number] RxPCN: ID#:[id number]] hydrocodone 5 mg-acetaminophen 325 mg tablet RxNorm: 108495 1 Tablet(s) PO TID as needed for pain for severe pain 04/30/2014 08/09/2014 Inactive hydrocodone 5 mg-acetaminophen 325 mg tablet RxNorm: 093812 1 Tablet(s) PO TID as needed for pain for severe pain 04/17/2014 04/29/2014 Inactive doxycycline hyclate 100 mg capsule RxNorm: 125248 1 Capsule(s) PO BID 03/05/2014 03/04/2014 Inactive doxycycline hyclate 100 mg capsule RxNorm: 936548 1 Capsule(s) PO BID 03/05/2014 03/14/2014 Inactive albuterol sulfate 2.5 mg/3 mL (0.083 %) solution for n ebulization RxNorm: 358740 Milliliter(s) INH USE 1 VIAL IN NEBULIZE R EVERY FOUR HOURS NEEDED FOR WHEEZING OR SHORTNESS OF BREATH 03/02/2014 06/29/2015 Inactive Generic For:*PROVENTIL 0.83 MG/ML SOLUTN 06/13/2013 2:04:46 PM Celexa 40 mg tablet RxNorm: 265705 1 Tablet(s) PO QD 1 Tablet(s) PO QD replaces lexapro. Generic OKAY 01/13/2014 06/09/2014 Inactive Actos 15 mg tablet RxNorm: 860710 1 Tablet(s) PO QAM 01/07/201405/12 Inactive lisinopril 20 mg tablet RxNorm: 787088 1 Tablet(s) PO QD 12/08/2013 0 05/12/2014 Inactive TAKE ONE TABLET BY MOUTH EVERY DAY;Gener ic For:*PRINIVIL 20 MG TABLET cefdinir 300 mg capsule RxNorm: 944550 2 Capsule(s) PO QD 11/10/2013 08/09/2014 Inactive cefdinir 300 mg capsule RxNorm: 167563 2 Capsule(s) PO QD 10/09/2013 10/15/2013 Inactive Actos 15 mg tablet RxNorm: 971873 1 Tablet(s) PO QAM 10/09/201301/06 Inactive doxycycline hyclate 100 mg capsule RxNorm: 6182049 1 Capsule(s) PO Q12H 09/18/2013 09/27/2013 Inactive omeprazole 20 mg capsule,delayed release RxNorm: 591888 2 Capsule(s) PO QD TAKE 2 CAPSULES BY MOUTH DAILY 09/03/2013 03/01/2014 Inactive Generi c For:*PRILOSEC [address] Celexa 40 mg tablet RxNorm: 888319 1 Tablet(s) PO QD re places lexapro. Generic OKAY 09/03/2013 01/13/2014 Inactive Symbicort 160 mcg-4.5 mcg/actuation HFA aerosol inhaler RxNo rm: 6060413 2 Puff(s) INH BID 08/13/2013 03/23/2014 Inactive metformin 1,000 mg tablet RxNorm: 312312 1 Tablet(s) PO BID 013 08/12/2013 Inactive TAKE ONE TABLET BY MOUTH TWI CE DAILY;Generic For:GLUCOPHAGE 1,000 MG TABLET 08/27/12 Thank you Actos 15 mg tablet RxNorm: 709479 1 Tablet(s) PO QAM 06/23/201310/09 Inactive lisinopril 20 mg tablet RxNorm: 390771 1 Tablet(s) PO QD 06/23/2013 0 12/08/2013 Inactive TAKE ONE TABLET BY MOUTH EVERY DAY;Gener ic For:*PRINIVIL 20 MG TABLET albuterol sulfate 2.5 mg/3 mL (0.083 %) solution for n ebulization RxNorm: 576772 Solution for Nebulization INH USE 1 VIAL IN NEBULIZER EVERY FOUR HOURS NEEDED FOR WHEEZING OR SHORTNESS OF BREATH 06/16/2013 03/01/2014 Inactive Generic For:*PROVENTIL 0.83 MG/ML SOLUTN 06/13/2013 2:04:46 PM prednisone 10 mg tablet RxNorm: 518187 1 Tablet(s) PO BID 04/09/2013 04/13/2013 Inactive AndroGel 1.25 gram/actuation (1%) Transdermal Gel Pump RxNorm: 2 05459 TD 04/09/2013 08/09/2014 Inactive APPLY 4 PUMPS OF GEL AT BEDTIME DIRECTED; (Appended: Controlled substance eRx refill - RxReferenceNumber: [id number]) azithromycin 250 mg tablet RxNorm: 228917 2 Tablet(s) PO QD 013 04/16/2013 Inactive Amaryl 2 mg tablet RxNorm: 396063 1 Tablet(s) PO BID N eeds appt in 1 month (around March 21) 02/18/2013 08/12/2013 Inactive Amaryl 2 mg tablet RxNorm: 772030 1 Tablet(s) PO BID 02/18/201302/17 Inactive metformin 1,000 mg tablet RxNorm: 541749 1 Tablet(s) PO BID 013 07/27/2013 Inactive TAKE ONE TABLET BY MOUTH TWI CE DAILY;Generic For:GLUCOPHAGE 1,000 MG TABLET 08/27/12 Thank you Actos 15 mg tablet RxNorm: 607485 1 Tablet(s) PO QAM 02/04/201306/03 Inactive albuterol sulfate 2.5 mg/3 mL (0.083 %) Neb Solution RxNorm: 987493 1 Unit Dose INH Q4H prn wheezing or shortness of breath 01/30/2013 06/15/2013 Inac tive Medrol (Gui) 4 mg tablets in a dose pack RxNorm: 463824 Tablet(s) PO as directed 01/20/2013 07/15/2013 Inactive cefdinir 300 mg capsule RxNorm: 311608 1 Capsule(s) PO BID anti biotic 01/20/2013 01/29/2013 Inactive lisinopril 20 mg tablet RxNorm: 377344 Tablet(s) PO 01/13/20132012 Inactive TAKE ONE TABLET BY MOUTH EVERY DAY;Gener ic For:*PRINIVIL 20 MG TABLET citalopram 40 mg tablet RxNorm: 804476 Tablet(s) PO 01/13/20132013 Inactive TAKE ONE (1) TABLET BY MOUTH DAILY;Gener ic For:CELEXA 40 MG TABLET omeprazole 20 mg capsule,delayed release RxNorm: 355721 Capsule(s) PO TAKE 2 CAPSULES BY MOUTH DAILY 11/15/2012 09/03/2013 Inactive Generic For:*PRILOSEC [address] amoxicillin 875 mg tablet RxNorm: 196415 1 Tablet(s) PO BID 013 10/28/2012 Inactive Actos 30 mg tablet RxNorm: 085447 1 Tablet(s) PO QD 09/23/20122011 Inactive Actos 15 mg tablet RxNorm: 045729 1 Tablet(s) PO QAM 09/23/201209/22 Inactive Actos 15 mg tablet RxNorm: 351063 1 Tablet(s) PO QAM 09/23/201202/04 Inactive prednisone 20 mg tablet RxNorm: 568468 1 Tablet(s) PO BID 08/28/2012 09/03/2012 Inactive doxycycline hyclate 100 mg tablet RxNorm: 3931760 1 Tablet(s) PO BI D 08/28/2012 09/06/2012 Inactive metformin 1,000 mg tablet RxNorm: 848714 Tablet(s) PO 08/27/201201/22 Inactive TAKE ONE TABLET BY MOUTH TWICE DAILY;Gen lewis For:GLUCOPHAGE 1,000 MG TABLET 08/27/12 Thank you citalopram 40 mg tablet RxNorm: 087452 Tablet(s) PO 07/30/20122012 Inactive TAKE ONE (1) TABLET BY MOUTH DAILY;Gener ic For:CELEXA 40 MG TABLET lisinopril 20 mg tablet RxNorm: 805378 Tablet(s) PO 07/30/20122012 Inactive TAKE ONE TABLET BY MOUTH EVERY DAY;Gener ic For:*PRINIVIL 20 MG TABLET AndroGel 1.25 gram/actuation (1%) Transdermal Gel Pump RxNor m: [id number] Gel in Metered-Dose Pump TD 07/09/2012 04/08/2013 Inactive APPLY 4 PUM PS OF GEL AT BEDTIME DIRECTED;WC (Appended: Controlled substance eRx refill - RxReferenceNumber: [id number]) citalopram 40 mg tablet RxNorm: 787034 Tablet(s) PO 07/01/20122011 Inactive TAKE ONE (1) TABLET BY MOUTH DAILY;Gener ic For:CELEXA 40 MG TABLET metformin 1,000 mg tablet RxNorm: 279148 1 Tablet(s) PO BID 012 08/25/2012 Inactive TAKE 1 TABLET BY MOUTH TWICE DAILY;Generic For:GLUCOPHAGE 1,000 MG TABLET meclizine 25 mg Tab RxNorm: 144122 1 Tablet(s) PO QID prn dizziness 05/09/2012 05/18/2012 Inactive lisinopril 20 mg tablet RxNorm: 935704 Tablet(s) PO QD 04/22/2012 Inactive TAKE ONE (1) TABLET BY MOUTH DAILY;Gener ic For:*PRINIVIL 20 MG TABLET metformin 1,000 mg tablet RxNorm: 131004 Tablet(s) PO 03/19/201212/2011 Inactive TAKE 1 TABLET BY MOUTH TWICE DAILY;Gener ic For:GLUCOPHAGE 1,000 MG TABLET cefdinir 300 mg Cap RxNorm: 964004 1 Capsule(s) PO BID 11/28/2011 Inactive cefdinir 300 mg Cap RxNorm: 158834 1 Capsule(s) PO BID 11/01/2011 Inactive citalopram 40 mg tablet RxNorm: 565469 Tablet(s) PO 10/30/20112011 Inactive TAKE ONE (1) TABLET BY MOUTH DAILY;Gener ic For:CELEXA 40 MG TABLET cefdinir 300 mg Cap RxNorm: 823092 1 Capsule(s) PO BID 10/02/2011 Inactive metformin 1,000 mg Tab RxNorm: 868401 1 Tablet(s) PO BID 09/28/2011 0 01/25/2012 Inactive citalopram 40 mg Tab RxNorm: 823465 1 Tablet(s) PO QD 09/28/201111/2011 Inactive omeprazole 20 mg capsule,delayed release RxNorm: 159545 2 Capsu le(s) PO QD 09/28/2011 03/25/2012 Inactive lisinopril 20 mg Tab RxNorm: 348734 Tablet(s) PO 08/21/2011 04/21/2012 Inactive TAKE ONE (1) TABLET BY MOUTH DAILY;Generic For:*PRINIVIL 20 MG TABLET AndroGel 1.25 gram/actuation (1%) Transdermal Gel Pump RxNor m: [id number] Gel in Metered-dose Pump TD 08/21/2011 07/09/2012 Inactive APPLY 4 PUM PS OF GEL AT BEDTIME DIRECTED (Appended: Controlled substance eRx refill - RxReferenceNumber: [id number]) Lantus Solostar 100 unit/mL (3 mL) Sub-Q Insulin Pen RxNorm: 859364 30 Unit(s) SQ QD 06/20/2011 05/08/2012 Inactive Lantus Solostar 100 unit/mL (3 mL) Sub-Q Insulin Pen RxNorm: 565847 30 Unit(s) SQ QD 06/19/2011 06/19/2011 Inactive metformin 1,000 mg Tab RxNorm: 901324 1 Tablet(s) PO BID 05/12/2011 1 11/09/2010 Inactive citalopram 40 mg Tab RxNorm: 023840 1 Tablet(s) PO QD 03/06/201105/2011 Inactive metformin 1,000 mg Tab RxNorm: 039213 1 Tablet(s) PO BID 12/27/2010 0 04/25/2011 Inactive lisinopril 20 mg Tab RxNorm: 664418 Tablet(s) PO TAKE 1 TABLET BY MOUTH EVERY DAY;Generic For:*PRINIVIL 20 MG TABLET 12/26/2010 08/20/2011 Inactive Ceftin 500 mg Tab RxNorm: 120382 1 Tablet(s) PO BID 12/19/20102010 Inactive omeprazole 20 mg Cap, Delayed Release RxNorm: 849054 2 Capsule( s) PO QD 09/13/2010 03/11/2011 Inactive Byetta 10 mcg/0.04 mL per dose Sub-Q Pen Injector RxNorm: 84 7913 1 Unit Dose SQ BID 09/07/2010 10/06/2010 Inactive Celexa 40 mg tablet RxNorm: 766442 1 Tablet(s) PO QD re places lexapro. Generic OKAY 08/09/2010 02/04/2011 Inactive Actos 30 mg Tab RxNorm: 480144 1 Tablet(s) PO QD 08/09/2010 04/02/2011 Inactive lisinopril 20 mg Tab RxNorm: 111671 1 Tablet(s) PO QD 08/09/201011/22 Inactive metformin 1,000 mg Tab RxNorm: 037372 1 Tablet(s) PO BID 08/09/2010 0 12/06/2010 Inactive Metformin 1,000 mg Tab RxNorm: 376405 1 Tablet(s) PO BID 04/26/2010 0 04/25/2010 Inactive metformin 1,000 mg Tab RxNorm: 826024 1 Tablet(s) PO BID 04/26/2010 1 Inactive Lomotil 2.5 mg-0.025 mg Tab RxNorm: 4911079 1 Tablet(s) PO TID 1-2 TABS THREE TIMES DAILY 04/05/2010 04/07/2010 Inactive Mupirocin 2 % Topical Cream RxNorm: 489340 TOP BID 04/05/201003/25 Inactive lisinopril 20 mg Tab RxNorm: 970355 1 Tablet(s) PO QD 03/29/201010/2009 Inactive Actos 30 mg Tab RxNorm: 263212 1 Tablet(s) PO QD 03/29/2010 07/26/2010 Inactive Lisinopril 20 mg Tab RxNorm: 521492 1 Tablet(s) PO QD 02/27/201001/2010 Inactive Actos 30 mg Tab RxNorm: 562127 1 Tablet(s) PO QD 02/14/2010 03/28/2010 Inactive Celexa 40 mg Tab RxNorm: 607382 1 Tablet(s) PO QD replaces lexapro 01/13/2010 07/11/2010 Inactive Cyclobenzaprine 10 mg Tab RxNorm: 347695 1 Tablet(s) PO TID prn spasm 12/23/2009 01/21/2010 Inactive Cyclobenzaprine 10 mg Tab RxNorm: 478997 1 Tablet(s) PO TID 010 12/22/2009 Inactive Hydrocodone-Acetaminophen 7.5 mg-750 mg Tab RxNorm: 340378 1 Ta blet(s) PO Q4-6H 12/23/2009 12/22/2009 Inactive Levemir FlexTouch U-100 Insulin 100 unit/mL (3 mL) sub cutaneous pen RxNorm: 235192 22 Unit(s) SQ QD No Start Date Active aspirin 81 mg tablet RxNorm: 637802 1 Tablet(s) PO QD No Start Date Active isosorbide mononitrate ER 60 mg tablet,extended release 24 h r RxNorm: 294612 1 Tablet(s) PO QD No Start Date Active amlodipine 5 mg tablet RxNorm: 519458 1 Tablet(s) PO QD No Start Date Active Vitamin D3 1,000 unit tablet RxNorm: 105981 3 Tablet(s) PO QD No St art Date 10/26/2014 Inactive Lexapro 20 mg Tab RxNorm: 108860 1 Tablet(s) PO QD No Start Date 12/24 Inactive loperamide 2 mg tablet RxNorm: 912544 Tablet(s) PO PRN No Start Date 06/07/2016 Inactive Janumet 50 mg-1,000 mg Tab RxNorm: 420371 1 Tablet(s) PO BID No Sta rt Date 01/12/2010 Inactive Levemir U-100 Insulin 100 unit/mL subcutaneous solution RxNo rm: 092942 10 Unit(s) SQ QHS No Start Date 12/08/2018 Inactive Medrol (Gui) 4 mg tablets in a dose pack RxNorm: 126178 Tablet(s) PO Use as directed No Start Date 12/22/2018 Inactive aspirin 325 mg tablet RxNorm: 010528 1 Tablet(s) PO QD No Start Date 08/09/2016 Inactive Efudex 5 % Topical Cream RxNorm: 945380 Application TOP QD prn fto skin lesion No Start Date 08/12/2013 Inactive nitroglycerin 0.4 mg sublingual tablet RxNorm: 822688 Tablet(s) SL as needed No Start Date 12/18/2018 Inactive levofloxacin 500 mg tablet RxNorm: 023465 1 Tablet(s) PO QD No Star t Date 08/06/2018 Inactive ferrous sulfate 325 mg (65 mg iron) tablet RxNorm: 803918 1 Tab let(s) PO QHS No Start Date 04/16/2017 Inactive fluorouracil 5 % topical cream RxNorm: 939713 1 TOP No Start James e 08/06/2018 Inactive Vitamin D3 1,000 unit capsule RxNorm: 469273 1 Capsule(s) PO QD No Start Date 02/03/2018 Inactive Hydrocodone-Acetaminophen 7.5 mg-750 mg Tab RxNorm: 907431 1 Ta blet(s) PO PRN No Start Date 08/09/2014 Inactive pantoprazole 40 mg tablet,delayed release RxNorm: 185712 1 Tabl et(s) PO QD No Start Date 01/22/2018 Inactive omeprazole 20 mg Cap, Delayed Release RxNorm: 399879 2 Capsule( s) PO QD No Start Date 09/12/2010 Inactive DuoNeb 0.5 mg-3 mg(2.5 mg base)/3 mL solution for nebulizati on RxNorm: 0283209 INH Q4H as needed No Start Date 10/22/2018 Inactive Lyrica 75 mg capsule RxNorm: 878539 2 Capsule(s) PO QHS No Start Da te 03/09/2019 Inactive isosorbide mononitrate ER 30 mg tablet,extended release 24 h r RxNorm: 080166 1 Tablet(s) PO QD No Start Date 12/08/2018 Inactive Tradjenta 5 mg tablet RxNorm: 0758147 1 Tablet(s) PO QD No Start Da te 08/09/2016 Inactive Tudorza Pressair 400 mcg/actuation breath activated RxNorm: 8088593 1 Puff(s) INH BID No Start Date 06/17/2017 Inactive Lantus Solostar 100 unit/mL (3 mL) Sub-Q Insulin Pen RxNorm: 766792 30 Unit(s) SQ QD No Start Date 06/18/2011 Inactive Requip 4 mg tablet RxNorm: 112249 1 Tablet(s) PO BID No Start Date Inactive Symbicort 160 mcg-4.5 mcg/actuation HFA aerosol inhaler RxNo rm: 2846273 2 Puff(s) INH BID No Start Date 07/11/2018 Inactive atorvastatin 40 mg tablet RxNorm: 031541 1 Tablet(s) PO QD No Start Date 12/18/2018 Inactive tramadol 50 mg tablet RxNorm: 063469 1 Tablet(s) PO TID as needed for pain (take alone with two extra strength tylenol) No Start Date 01/16/2019 Inactive Symbicort 160 mcg-4.5 mcg/actuation HFA aerosol inhaler RxNo rm: 9852179 2 Puff(s) INH BID No Start Date 08/12/2013 Inactive Vitamin D3 5,000 unit tablet RxNorm: 016345 1 Tablet(s) PO QD No St art Date 05/08/2019 Inactive albuterol sulfate 2.5 mg/3 mL (0.083 %) Neb Solution RxNorm: 805043 1 Unit Dose INH Q4H prn wheezing or shortness of breath No Start Date 01/29/2013 Inac tive Ranexa 500 mg tablet,extended release RxNorm: 089487 1 Tablet(s ) PO BID No Start Date 02/03/2018 Inactive Advair Diskus 500 mcg-50 mcg/dose powder for inhalation RxNo rm: 5333915 1 Puff(s) INH BID No Start Date 08/09/2016 Inactive clopidogrel 75 mg tablet RxNorm: 567557 1 Tablet(s) PO QD No Start Date 05/01/2018 Inactive metformin 1,000 mg Tab RxNorm: 619729 1 Tablet(s) PO BID No Start D ate 08/12/2013 Inactive Silenor 3 mg tablet RxNorm: 947687 1 Tablet(s) PO QHS No Start Date 0 04/04/2017 Inactive Medrol (Gui) 4 mg tablets in a dose pack RxNorm: 939867 Tablet(s) PO as directed No Start Date 01/19/2013 Inactive Requip 4 mg tablet RxNorm: 313683 1 Tablet(s) PO BID No Start Date Inactive clopidogrel 75 mg tablet RxNorm: 401386 1 Tablet(s) PO QD No Start Date 02/03/2018 Inactive Tradjenta 5 mg tablet RxNorm: 8291956 1 Tablet(s) PO QD No Start Da te 02/03/2018 Inactive ProAir HFA 90 mcg/Actuation Aerosol Inhaler RxNorm: 337543 2 Pu ff(s) INH PRN No Start Date 07/09/2012 Inactive Tessalon Perles 100 mg capsule RxNorm: 731754 1 Capsule (s) PO TID as needed for cough No Start Date 08/30/2014 Inactive ferrous sulfate 325 mg (65 mg iron) tablet RxNorm: 211211 1 Tab let(s) PO QD No Start Date 05/08/2019 Inactive pioglitazone 15 mg tablet RxNorm: 756391 1 Tablet(s) PO QD No Start Date 09/20/2014 Inactive Lexapro Oral RxNorm: Oral No Start Date 12/13/2009 Inactive Breo Ellipta 100 mcg-25 mcg/dose powder for inhalation RxNor m: 0377680 1 Puff(s) INH BID No Start Date 05/31/2015 Inactive Tylenol Extra Strength 500 mg tablet RxNorm: 564052 2 T ablet(s) PO QHS along with ropironole No Start Date 12/18/2018 Inactive tramadol 50 mg tablet RxNorm: 540522 1 Tablet(s) PO QID as need ed for pain No Start Date 12/24/2018 Inactive cyclobenzaprine 10 mg Tab RxNorm: 717486 Oral No Start Date 12/22 Inactive Levemir FlexTouch 100 unit/mL (3 mL) subcutaneous insulin pe n RxNorm: 748948 10 Unit(s) SQ QD No Start Date 03/08/2016 Inactive amlodipine 5 mg tablet RxNorm: 057282 1 Tablet(s) PO QD No Start Da te 08/09/2016 Inactive Novolog 100 unit/mL subcutaneous solution RxNorm: 378929 10 Uni t(s) SQ AC No Start Date 08/12/2017 Inactive Levemir FlexTouch 100 unit/mL (3 mL) subcutaneous insulin pe n RxNorm: 548539 25 Unit(s) SQ QPM No Start Date 08/06/2018 Inactive Farxiga 5 mg tablet RxNorm: 6517539 1 Tablet(s) PO QD No Start Date 0 10/05/2014 Inactive DuoNeb 0.5 mg-3 mg(2.5 mg base)/3 mL solution for nebulizati on RxNorm: 1592581 inhalation No Start Date 09/23/2014 Inactive Doxycycline 100 mg Cap RxNorm: 681065 1 Capsule(s) PO BID No Start Date 12/18/2010 Inactive Vitamin B12 1000mcg Tablet RxNorm: 1 Tablet(s) PO QD No Start Date 02/03/2018 Inactive Hydrocodone-Acetaminophen 7.5 mg-750 mg Tab RxNorm: 295009 1 Ta blet(s) PO Q6-8H No Start Date 12/22/2009 Inactive Xigduo XR 5 mg-1,000 mg tablet,extended release RxNorm: 1593 833 1 Tablet(s) PO QD No Start Date 05/31/2015 Inactive cyanocobalamin (vit B-12) 1,000 mcg/mL injection solution Rx Norm: 275130 1 injection weekly for 4 weeks 1 Milliliter(s) Inj No Start Date 05/08/2019 Inactive AndroGel 1.25 g/Actuation (1%) Transdermal Gel Pump RxNorm: 7034649 TD Apply 4pumps daily No Start Date 08/21/2011 Inactive Actoplus MET 15 mg-850 mg Tab RxNorm: 287320 1 Tablet(s) PO BID No Start Date 12/18/2010 Inactive Amaryl 2 mg tablet RxNorm: 319396 1 Tablet(s) PO BID No Start Date Inactive Levemir FlexTouch 100 unit/mL (3 mL) subcutaneous insulin pe n RxNorm: 906705 20 Unit(s) SQ QD No Start Date 06/12/2016 Inactive Symbicort 160 mcg-4.5 mcg/actuation HFA aerosol inhaler RxNo rm: 5381302 2 Puff(s) INH BID No Start Date 02/03/2018 Inactive Symbicort 160 mcg-4.5 mcg/Actuation Inhalation HFA Aer osol Inhaler RxNorm: 7076495 2 INH BID No Start Date 12/18/2010 Inactive Farxiga 5 mg tablet RxNorm: 8876657 1 Tablet(s) PO QD No Start Date 0 03/01/2015 Inactive magnesium oxide 400 mg (241.3 mg magnesium) tablet RxNorm: 1 01344 1 Tablet(s) PO QHS No Start Date 05/08/2019 Inactive Tradjenta 5 mg tablet RxNorm: 0578003 2 Tablet(s) PO QD No Start Da te 07/21/2015 Inactive Levemir FlexTouch U-100 Insulin 100 unit/mL (3 mL) sub cutaneous pen RxNorm: 311761 40 Unit(s) SQ QD No Start Date 08/06/2018 Inactive Sinemet CR 50 mg-200 mg tablet,extended release RxNorm: 8343 41 1 Tablet(s) PO QHS No Start Date 09/24/2017 Inactive metoprolol tartrate 25 mg tablet RxNorm: 416664 1/2 Tablet(s) P O BID No Start Date 02/03/2018 Inactive Requip 4 mg tablet RxNorm: 705013 1 Tablet(s) PO QHS No Start Date Inactive Ventolin HFA 90 mcg/actuation aerosol inhaler RxNorm: 680447 2 Puff(s) INH Q4H as needed No Start Date 04/22/2018 Inactive B12 5,000 mcg-100 mcg sublingual lozenge RxNorm: 555935 IM as d irected No Start Date 05/08/2019 Inactive ropinirole 1 mg tablet RxNorm: 973429 1 Tablet(s) PO QHS No Start D ate 08/06/2018 Inactive Percocet 5 mg-325 mg tablet RxNorm: 5530668 1 Tablet(s) PO Q4H as needed for pain (Dr Rizzo) No Start Date 10/22/2018 Inactive hydrocodone 5 mg-acetaminophen 325 mg tablet RxNorm: 023623 1 Tablet(s) PO TID as needed for pain for severe pain No Start Date 04/16/2014 Inactive scopolamine 1.5 mg 72 hr Transderm Patch RxNorm: 745664 Application TD Q72H for dizziness No Start Date 08/12/2013 Inactive ipratropium-albuterol 0.5 mg-3 mg(2.5 mg base)/3 mL ne bulization soln RxNorm: 0086814 1 Unit Dose INH Q4H No Start Date 01/16/2019 Inactive Medication Administered No Medication Administered data Immunizations Vaccine Codes Date Status Influenza CVX: 135 08/07/2019 Complete Pneumococcal CVX: 33 07/24/2017 Complete Influenza CVX: 135 06/13/2016 Complete Pneumococcal CVX: 133 06/13/2016 Complete Influenza CVX: 141 07/10/2012 Pneumovax Unknown 07/10/2012 Results Observation Observation Code Item Item Code Result Date S vice Location COMPLETE BLOOD COUNT [id number] WBC 5.5 10e9/L 06/17/20 19 Unknown COMPLETE BLOOD COUNT [id number] RBC 3.92 10e12/L 2018 Unknown COMPLETE BLOOD COUNT 2930231 HEMOGLOBIN 10.9 g/dL 06/17/20 19 Unknown COMPLETE BLOOD COUNT 5436515 HEMATOCRIT 34.8 % 06/17/20 19 Unknown COMPLETE BLOOD COUNT 9335256 MCV 88.8 fL 9 Unknown COMPLETE BLOOD COUNT 8161802 MCH 27.8 pg 9 Unknown COMPLETE BLOOD COUNT 2440929 MCHC 31.3 g/dL 9 Unknown COMPLETE BLOOD COUNT 0605868 PLATELET COUNT 239 10e9/L Unknown COMPLETE BLOOD COUNT 1643968 Mean Plt Volume 10.0 fL Unknown COMPLETE BLOOD COUNT 9489575 Neut Auto 68.0 % 9 Unknown COMPLETE BLOOD COUNT 4973870 Lymph Auto 14.8 % 06/17/20 19 Unknown COMPLETE BLOOD COUNT 4915131 [place] Auto 13.1 % 9 Unknown COMPLETE BLOOD COUNT 8132426 RDW 14.7 % 9 Unknown COMPLETE BLOOD COUNT 2066501 Eos Auto 3.6 % 9 Unknown COMPLETE BLOOD COUNT 1067394 Baso Auto 0.5 % 9 Unknown COMPLETE BLOOD COUNT 7743409 Neutrophil Abs 3.74 10e9/L Unknown COMPLETE BLOOD COUNT 4796612 Lymphocyte Abs 0.81 10e9/L Unknown COMPLETE BLOOD COUNT 2567970 Monocyte Abs 0.72 10e9/L 05/26 Unknown COMPLETE BLOOD COUNT 4147656 Eosinophil Abs 0.20 10e9/L Unknown COMPLETE BLOOD COUNT 2616219 RDW-SD 46.4 fL 9 Unknown COMPLETE BLOOD COUNT 5031157 Basophil Abs 0.03 10e9/L 05/26 Unknown IRON 49111 Iron 36 ug/dL 06/17/2019 Unknown VITAMIN B 12 76375 VITAMIN B12 540 pg/mL 06/17/2019 Unkn own GFR CALC 4695270 GFR Non Afr Amr 59 mL/min 06/17/2019 Unk nown GFR CALC 0854038 GFR Afr Amr >60 mL/min 06/17/2019 Unknow n ERYTHROCYTE SEDIMENTATION RATE 59400 Sed Rate 34 mm/hr 06/17/2019 Unknown THYROID STIMULATING HORMONE 73605 TSH 2.217 uIU/mL 06/17/2019 Unknown COMPREHENSIVE METABOLIC 78540 AST 12 U/L 2018 Unknown COMPREHENSIVE METABOLIC 23404 ALT 11 U/L 2018 Unknown COMPREHENSIVE METABOLIC 22760 BUN 17 mg/dL 2018 Unknown COMPREHENSIVE METABOLIC 31566 ALBUMIN 3.9 g/dL 2018 Unknown COMPREHENSIVE METABOLIC 07970 CHLORIDE 103 mmol/L 06/17 Unknown COMPREHENSIVE METABOLIC 06304 Bili Total 0.4 mg/dL 06/17 Unknown COMPREHENSIVE METABOLIC 11356 ALK PHOS 51 U/L 2018 Unknown COMPREHENSIVE METABOLIC 09273 SODIUM 140 mmol/L 06/17 Unknown COMPREHENSIVE METABOLIC 92062 CREATININE 1.20 mg/dL 05/26 Unknown COMPREHENSIVE METABOLIC 17016 CALCIUM 8.9 mg/dL 2018 Unknown COMPREHENSIVE METABOLIC 73116 POTASSIUM 4.5 mmol/L 06/17 Unknown COMPREHENSIVE METABOLIC 82321 Total Protein 6.1 g/dL Unknown COMPREHENSIVE METABOLIC 31434 Glucose 108 mg/dL 2018 Unknown COMPREHENSIVE METABOLIC 19724 Bicarbonate 27 mmol/L 05/26 Unknown COMPREHENSIVE METABOLIC 71188 AGAP 10 mmol/L 2018 Unknown FERRITIN 77560 FERRITIN 35.5 ng/mL 05/08/2019 Unknown VITAMIN D TOTAL (25 HYDROXY) 58968 Vitamin D 25 OH 26.0 ng/mL 05/08/2019 Unknown GLYCOSYLATED HEMOGLOBIN TEST 48794 Hgb A1c 08842-3 8.2 % 0 05/08/2019 Unknown MEAN GLUC 2283063 Calc Mean Gluc 189 mg/dL 05/08/2019 Unkn own GFR CALC 2185758 GFR Non Afr Amr >60 mL/min 05/08/2019 Un known GFR CALC 0451633 GFR Afr Amr >60 mL/min 05/08/2019 Unknow n VITAMIN B 12 10394 VITAMIN B12 197 pg/mL 05/08/2019 Unkn own IRON 30024 Iron 34 ug/dL 05/08/2019 Unknown COMPLETE BLOOD COUNT 2735530 WBC 6.9 10e9/L 05/08/20 19 Unknown COMPLETE BLOOD COUNT 4612973 RBC 3.95 10e12/L 2018 Unknown COMPLETE BLOOD COUNT 4077907 HEMOGLOBIN 11.1 g/dL 05/08/20 19 Unknown COMPLETE BLOOD COUNT 1558055 HEMATOCRIT 34.9 % 05/08/20 19 Unknown COMPLETE BLOOD COUNT 1925034 MCV 88.4 fL 9 Unknown COMPLETE BLOOD COUNT 0220168 MCH 28.1 pg 9 Unknown COMPLETE BLOOD COUNT 5760421 MCHC 31.8 g/dL 9 Unknown COMPLETE BLOOD COUNT 6158693 PLATELET COUNT 217 10e9/L Unknown COMPLETE BLOOD COUNT 8951291 Mean Plt Volume 9.6 fL Unknown COMPLETE BLOOD COUNT 0661262 Neut Auto 77.6 % 9 Unknown COMPLETE BLOOD COUNT 0746522 Lymph Auto 10.7 % 05/08/20 19 Unknown COMPLETE BLOOD COUNT 3529914 [place] Auto 10.4 % 9 Unknown COMPLETE BLOOD COUNT 4061209 RDW 14.7 % 9 Unknown COMPLETE BLOOD COUNT 2817009 Eos Auto 1.2 % 9 Unknown COMPLETE BLOOD COUNT 5251333 Baso Auto 0.1 % 9 Unknown COMPLETE BLOOD COUNT 0707754 Neutrophil Abs 5.35 10e9/L Unknown COMPLETE BLOOD COUNT 9297056 Lymphocyte Abs 0.74 10e9/L Unknown COMPLETE BLOOD COUNT 8577440 Monocyte Abs 0.72 10e9/L 04/24 Unknown COMPLETE BLOOD COUNT 6131931 Eosinophil Abs 0.08 10e9/L Unknown COMPLETE BLOOD COUNT 9912022 RDW-SD 46.6 fL 9 Unknown COMPLETE BLOOD COUNT 8488439 Basophil Abs 0.01 10e9/L 04/24 Unknown COMPREHENSIVE METABOLIC 24485 AST 13 U/L 2018 Unknown COMPREHENSIVE METABOLIC 92412 ALT 9 U/L 2018 Unknown COMPREHENSIVE METABOLIC 56481 BUN 18 mg/dL 2018 Unknown COMPREHENSIVE METABOLIC 36557 ALBUMIN 4.3 g/dL 2018 Unknown COMPREHENSIVE METABOLIC 66926 CHLORIDE 99 mmol/L 2018 Unknown COMPREHENSIVE METABOLIC 68105 Bili Total 0.4 mg/dL 05/08 Unknown COMPREHENSIVE METABOLIC 52341 ALK PHOS 48 U/L 2018 Unknown COMPREHENSIVE METABOLIC 06742 SODIUM 137 mmol/L 05/08 Unknown COMPREHENSIVE METABOLIC 04783 CREATININE 0.79 mg/dL 04/24 Unknown COMPREHENSIVE METABOLIC 87229 CALCIUM 9.5 mg/dL 2018 Unknown COMPREHENSIVE METABOLIC 21957 POTASSIUM 4.0 mmol/L 05/08 Unknown COMPREHENSIVE METABOLIC 16678 Total Protein 6.3 g/dL Unknown COMPREHENSIVE METABOLIC 20241 Glucose 232 mg/dL 2018 Unknown COMPREHENSIVE METABOLIC 64684 Bicarbonate 27 mmol/L 04/24 Unknown COMPREHENSIVE METABOLIC 25079 AGAP 11 mmol/L 2018 Unknown GLYCOSYLATED HEMOGLOBIN TEST 68306 Hgb A1c 06589-5 8.9 % 0 12/10/2018 Unknown MEAN GLUC 4006546 Calc Mean Gluc 209 mg/dL 12/10/2018 Unkn own LIPID GROUP 46657 Cholesterol 145 mg/dL 12/09/2018 Unkno wn LIPID GROUP 35906 Triglyceride 235 mg/dL 12/09/2018 Unkn own LIPID GROUP 04825 HDL CHOLESTEROL 40 mg/dL 12/09/2018 U nknown LIPID GROUP 03788 Chol/HDL Ratio 3.62 ratio 12/09/2018 U nknown LIPID GROUP 82660 NON-HDL Chol 105 mg/dL 12/09/2018 Unkn own LIPID GROUP 28004 LDL Cholesterol 58 mg/dL 12/09/2018 U nknown THYROID STIMULATING HORMONE 58432 TSH 1.071 uIU/mL 12/09/2018 Unknown GFR CALC 1144821 GFR Non Afr Amr >60 mL/min 12/09/2018 Un known GFR CALC 7053603 GFR Afr Amr >60 mL/min 12/09/2018 Unknow n COMPLETE BLOOD COUNT 7209908 WBC 7.6 10e9/L 12/10/19 19 Unknown COMPLETE BLOOD COUNT 2908003 RBC 3.97 10e12/L 2018 Unknown COMPLETE BLOOD COUNT 2760192 HEMOGLOBIN 11.4 g/dL 12/10/19 19 Unknown COMPLETE BLOOD COUNT 8640107 HEMATOCRIT 35.8 % 12/10/19 19 Unknown COMPLETE BLOOD COUNT 9757747 MCV 90.2 fL 9 Unknown COMPLETE BLOOD COUNT 6065208 MCH 28.7 pg 9 Unknown COMPLETE BLOOD COUNT 7690955 MCHC 31.8 g/dL 9 Unknown COMPLETE BLOOD COUNT 4387223 PLATELET COUNT 200 10e9/L Unknown COMPLETE BLOOD COUNT 9098913 Mean Plt Volume 10.1 fL Unknown COMPLETE BLOOD COUNT 9805911 Neut Auto 79.0 % 9 Unknown COMPLETE BLOOD COUNT 0388420 Lymph Auto 8.3 % 12/10/19 19 Unknown COMPLETE BLOOD COUNT 3345061 [place] Auto 10.8 % 9 Unknown COMPLETE BLOOD COUNT 6704617 RDW 14.6 % 9 Unknown COMPLETE BLOOD COUNT 8619319 Eos Auto 1.5 % 9 Unknown COMPLETE BLOOD COUNT 4845959 Baso Auto 0.4 % 9 Unknown COMPLETE BLOOD COUNT 5289519 Neutrophil Abs 6.00 10e9/L Unknown COMPLETE BLOOD COUNT 7207821 Lymphocyte Abs 0.63 10e9/L Unknown COMPLETE BLOOD COUNT 0069340 Monocyte Abs 0.82 10e9/L 11/22 Unknown COMPLETE BLOOD COUNT 0755000 Eosinophil Abs 0.11 10e9/L Unknown COMPLETE BLOOD COUNT 4219069 RDW-SD 46.9 fL 9 Unknown COMPLETE BLOOD COUNT 0070405 Basophil Abs 0.03 10e9/L 11/22 Unknown COMPREHENSIVE METABOLIC 47299 AST 11 U/L 2018 Unknown COMPREHENSIVE METABOLIC 68167 ALT 11 U/L 2018 Unknown COMPREHENSIVE METABOLIC 63517 BUN 21 mg/dL 2018 Unknown COMPREHENSIVE METABOLIC 13305 ALBUMIN 4.7 g/dL 2018 Unknown COMPREHENSIVE METABOLIC 76147 CHLORIDE 99 mmol/L 2018 Unknown COMPREHENSIVE METABOLIC 98190 Bili Total 0.4 mg/dL 12/09 Unknown COMPREHENSIVE METABOLIC 90477 ALK PHOS 73 U/L 2018 Unknown COMPREHENSIVE METABOLIC 46590 SODIUM 137 mmol/L 12/09 Unknown COMPREHENSIVE METABOLIC 04836 CREATININE 1.12 mg/dL 11/22 Unknown COMPREHENSIVE METABOLIC 58883 CALCIUM 9.4 mg/dL 2018 Unknown COMPREHENSIVE METABOLIC 46718 POTASSIUM 4.2 mmol/L 12/09 Unknown COMPREHENSIVE METABOLIC 06340 Total Protein 6.8 g/dL Unknown COMPREHENSIVE METABOLIC 83771 Glucose 194 mg/dL 2018 Unknown COMPREHENSIVE METABOLIC 76197 Bicarbonate 30 mmol/L 11/22 Unknown COMPREHENSIVE METABOLIC 54057 AGAP 8 mmol/L 2018 Unknown FREE T4 65038 T4 Free 0.86 ng/dL 12/09/2018 Unknown COMPLETE BLOOD COUNT 6674860 WBC 6.8 10e9/L 04/17/20 17 Unknown COMPLETE BLOOD COUNT 7434743 RBC 3.86 10e12/L 2016 Unknown COMPLETE BLOOD COUNT 7760124 HEMOGLOBIN 9.8 g/dL 04/17/20 17 Unknown COMPLETE BLOOD COUNT 6948811 HEMATOCRIT 31.1 % 04/17/20 17 Unknown COMPLETE BLOOD COUNT 6506642 MCV 80.6 fL 7 Unknown COMPLETE BLOOD COUNT 3073523 MCH 25.4 pg 7 Unknown COMPLETE BLOOD COUNT 8768680 MCHC 31.5 g/dL 7 Unknown COMPLETE BLOOD COUNT 1588566 PLATELET COUNT 247 10e9/L Unknown COMPLETE BLOOD COUNT 1048500 Mean Plt Volume 9.7 fL Unknown COMPLETE BLOOD COUNT 8141347 Neut Auto 74.1 % 7 Unknown COMPLETE BLOOD COUNT 7401094 Lymph Auto 12.0 % 04/17/20 17 Unknown COMPLETE BLOOD COUNT 5274083 [place] Auto 10.8 % 7 Unknown COMPLETE BLOOD COUNT 2487446 RDW 15.9 % 7 Unknown COMPLETE BLOOD COUNT 0171746 Eos Auto 2.5 % 7 Unknown COMPLETE BLOOD COUNT 0895787 Baso Auto 0.6 % 7 Unknown COMPLETE BLOOD COUNT 1186830 Neutrophil Abs 5.04 10e9/L Unknown COMPLETE BLOOD COUNT 1120582 Lymphocyte Abs 0.82 10e9/L Unknown COMPLETE BLOOD COUNT 9427657 Monocyte Abs 0.73 10e9/L 03/25 Unknown COMPLETE BLOOD COUNT 6429290 Eosinophil Abs 0.17 10e9/L Unknown COMPLETE BLOOD COUNT 1628789 RDW-SD 44.4 fL 7 Unknown COMPLETE BLOOD COUNT 8398643 Basophil Abs 0.04 10e9/L 03/25 Unknown MEAN GLUC 4221529 Calc Mean Gluc 223 mg/dL 04/17/2017 Unkn own GFR CALC 4105723 GFR Non Afr Amr >60 mL/min 04/17/2017 Un known GFR CALC 2051362 GFR Afr Amr >60 mL/min 04/17/2017 Unknow n GLYCOSYLATED HEMOGLOBIN TEST 40471 Hgb A1c 14464-1 9.4 % 0 04/17/2017 Unknown IRON 95898 Iron 37 ug/dL 04/17/2017 Unknown VITAMIN B 12 82592 VITAMIN B12 280 pg/mL 04/17/2017 Unkn own THYROID STIMULATING HORMONE 26399 TSH 2.481 uIU/mL 04/17/2017 Unknown COMPREHENSIVE METABOLIC 17781 AST 13 U/L 2016 Unknown COMPREHENSIVE METABOLIC 20362 ALT 12 U/L 2016 Unknown COMPREHENSIVE METABOLIC 70321 BUN 18 mg/dL 2016 Unknown COMPREHENSIVE METABOLIC 81666 ALBUMIN 4.7 g/dL 2016 Unknown COMPREHENSIVE METABOLIC 63816 CHLORIDE 103 mmol/L 04/17 Unknown COMPREHENSIVE METABOLIC 38761 Bili Total 0.4 mg/dL 04/17 Unknown COMPREHENSIVE METABOLIC 57723 ALK PHOS 49 U/L 2016 Unknown COMPREHENSIVE METABOLIC 52414 SODIUM 140 mmol/L 04/17 Unknown COMPREHENSIVE METABOLIC 21935 CREATININE 1.14 mg/dL 03/25 Unknown COMPREHENSIVE METABOLIC 80630 CALCIUM 9.4 mg/dL 2016 Unknown COMPREHENSIVE METABOLIC 81989 POTASSIUM 4.4 mmol/L 04/17 Unknown COMPREHENSIVE METABOLIC 41544 Total Protein 6.7 g/dL Unknown COMPREHENSIVE METABOLIC 95495 Glucose 266 mg/dL 2016 Unknown COMPREHENSIVE METABOLIC 70782 Bicarbonate 25 mmol/L 03/25 Unknown COMPREHENSIVE METABOLIC 86463 AGAP 12 mmol/L 2016 Unknown FERRITIN 81990 FERRITIN 10.0 ng/mL 04/17/2017 Unknown COMPLETE BLOOD COUNT 0209103 WBC 6.8 10e9/L 12/22/19 17 Unknown COMPLETE BLOOD COUNT 8775060 RBC 3.70 10e12/L 2016 Unknown COMPLETE BLOOD COUNT 4315717 HEMOGLOBIN 8.0 g/dL 12/22/19 17 Unknown COMPLETE BLOOD COUNT 0195617 HEMATOCRIT 26.7 % 12/22/19 17 Unknown COMPLETE BLOOD COUNT 1688341 MCV 72.2 fL 7 Unknown COMPLETE BLOOD COUNT 5235272 MCH 21.6 pg 7 Unknown COMPLETE BLOOD COUNT 7288073 MCHC 30.0 g/dL 7 Unknown COMPLETE BLOOD COUNT 5500043 PLATELET COUNT 290 10e9/L Unknown COMPLETE BLOOD COUNT 4528011 Mean Plt Volume 9.3 fL Unknown COMPLETE BLOOD COUNT 5657937 Neut Auto 80.2 % 7 Unknown COMPLETE BLOOD COUNT 5563517 Lymph Auto 9.8 % 12/22/19 17 Unknown COMPLETE BLOOD COUNT 4019992 [place] Auto 8.1 % 7 Unknown COMPLETE BLOOD COUNT 4157007 RDW 17.4 % 7 Unknown COMPLETE BLOOD COUNT 2355327 Eos Auto 1.5 % 7 Unknown COMPLETE BLOOD COUNT 8031148 Baso Auto 0.4 % 7 Unknown COMPLETE BLOOD COUNT 2610024 Neutrophil Abs 5.45 10e9/L Unknown COMPLETE BLOOD COUNT 3522023 Lymphocyte Abs 0.67 10e9/L Unknown COMPLETE BLOOD COUNT 1999208 Monocyte Abs 0.55 10e9/L 11/24 Unknown COMPLETE BLOOD COUNT 2232368 Eosinophil Abs 0.10 10e9/L Unknown COMPLETE BLOOD COUNT 7680969 RDW-SD 44.1 fL 7 Unknown COMPLETE BLOOD COUNT 8303900 Basophil Abs 0.03 10e9/L 11/24 Unknown COMPLETE BLOOD COUNT 8852266 WBC 7.6 10e9/L 12/13/19 17 Unknown COMPLETE BLOOD COUNT 9974161 RBC 3.71 10e12/L 2016 Unknown COMPLETE BLOOD COUNT 1346132 HEMOGLOBIN 8.0 g/dL 12/13/19 17 Unknown COMPLETE BLOOD COUNT 3068221 HEMATOCRIT 27.3 % 12/13/19 17 Unknown COMPLETE BLOOD COUNT 1943210 MCV 73.6 fL 7 Unknown COMPLETE BLOOD COUNT 7156893 MCH 21.6 pg 7 Unknown COMPLETE BLOOD COUNT 4968202 MCHC 29.3 g/dL 7 Unknown COMPLETE BLOOD COUNT 6432525 PLATELET COUNT 330 10e9/L Unknown COMPLETE BLOOD COUNT 3226975 Mean Plt Volume 9.7 fL Unknown COMPLETE BLOOD COUNT 2732595 Neut Auto 73.2 % 7 Unknown COMPLETE BLOOD COUNT 1012976 Lymph Auto 14.5 % 12/13/19 17 Unknown COMPLETE BLOOD COUNT 9336163 [place] Auto 10.5 % 7 Unknown COMPLETE BLOOD COUNT 0637902 RDW 17.3 % 7 Unknown COMPLETE BLOOD COUNT 4272253 Eos Auto 1.3 % 7 Unknown COMPLETE BLOOD COUNT 5541469 Baso Auto 0.5 % 7 Unknown COMPLETE BLOOD COUNT 9072782 Neutrophil Abs 5.56 10e9/L Unknown COMPLETE BLOOD COUNT 9647447 Lymphocyte Abs 1.10 10e9/L Unknown COMPLETE BLOOD COUNT 4013239 Monocyte Abs 0.80 10e9/L 11/23 Unknown COMPLETE BLOOD COUNT 4138613 Eosinophil Abs 0.10 10e9/L Unknown COMPLETE BLOOD COUNT 0686014 RDW-SD 45.2 fL 7 Unknown COMPLETE BLOOD COUNT 3829346 Basophil Abs 0.04 10e9/L 11/23 Unknown IRON 29719 Iron 69 ug/dL 03/09/2016 Unknown VITAMIN B 12 47536 VITAMIN B12 311 pg/mL 03/09/2016 Unkn own MEAN GLUC 8687245 Mean Glucose 260 mg/dL 03/07/2016 Unknow n GLYCOSYLATED HEMOGLOBIN TEST 30946 Hgb A1c 68693-2 10.7 % 0 03/07/2016 Unknown COMPREHENSIVE METABOLIC 91413 AST 14 U/L 2015 Unknown COMPREHENSIVE METABOLIC 27811 ALT 21 U/L 2015 Unknown COMPREHENSIVE METABOLIC 33270 BUN 27 mg/dL 2015 Unknown COMPREHENSIVE METABOLIC 07465 ALBUMIN 4.5 g/dL 2015 Unknown COMPREHENSIVE METABOLIC 95806 CHLORIDE 101 mmol/L 03/06 Unknown COMPREHENSIVE METABOLIC 10062 Bili Total 0.4 mg/dL 03/06 Unknown COMPREHENSIVE METABOLIC 54573 ALK PHOS 49 U/L 2015 Unknown COMPREHENSIVE METABOLIC 60271 SODIUM 136 mmol/L 03/06 Unknown COMPREHENSIVE METABOLIC 93094 CREATININE 1.16 mg/dL 02/22 Unknown COMPREHENSIVE METABOLIC 25106 CALCIUM 9.9 mg/dL 2015 Unknown COMPREHENSIVE METABOLIC 20266 POTASSIUM 4.5 mmol/L 03/06 Unknown COMPREHENSIVE METABOLIC 45266 Total Protein 6.7 g/dL Unknown COMPREHENSIVE METABOLIC 29243 Glucose 245 mg/dL 2015 Unknown COMPREHENSIVE METABOLIC 77546 Bicarbonate 24 mmol/L 02/22 Unknown COMPREHENSIVE METABOLIC 94136 AGAP 11 mmol/L 2015 Unknown THYROID STIMULATING HORMONE 94652 TSH 0.775 uIU/mL 03/06/2016 Unknown TESTOSTERONE TOTAL 68358 Testos Total 96 ng/dL 03/06/20 16 Unknown LIPID GROUP 13136 Cholesterol 146 mg/dL 03/06/2016 Unkno wn LIPID GROUP 91830 Triglyceride 249 mg/dL 03/06/2016 Unkn own LIPID GROUP 71144 HDL CHOLESTEROL 46 mg/dL 03/06/2016 U nknown LIPID GROUP 64001 Chol/HDL Ratio 3.17 ratio 03/06/2016 U nknown LIPID GROUP 43347 NON-HDL Chol 100 mg/dL 03/06/2016 Unkn own LIPID GROUP 11059 LDL Cholesterol 50 mg/dL 03/06/2016 U nknown COMPLETE BLOOD COUNT 7791066 WBC 11.2 10e9/L 016 Unknown COMPLETE BLOOD COUNT 4751063 RBC 3.94 10e12/L 2015 Unknown COMPLETE BLOOD COUNT 8374305 HEMOGLOBIN 11.4 g/dL 03/06/20 16 Unknown COMPLETE BLOOD COUNT 3897609 HEMATOCRIT 33.7 % 03/06/20 16 Unknown COMPLETE BLOOD COUNT 2925628 MCV 85.5 fL 6 Unknown COMPLETE BLOOD COUNT 4239824 MCH 28.9 pg 6 Unknown COMPLETE BLOOD COUNT 0642617 MCHC 33.8 g/dL 6 Unknown COMPLETE BLOOD COUNT 6730640 PLATELET COUNT 204 10e9/L Unknown COMPLETE BLOOD COUNT 1216396 Mean Plt Volume 10.1 fL Unknown COMPLETE BLOOD COUNT 2437648 Neut Auto 85.9 % 6 Unknown COMPLETE BLOOD COUNT 4304914 Lymph Auto 6.8 % 03/06/20 16 Unknown COMPLETE BLOOD COUNT 6849312 [place] Auto 7.0 % 6 Unknown COMPLETE BLOOD COUNT 8477368 RDW 13.7 % 6 Unknown COMPLETE BLOOD COUNT 3629587 Eos Auto 0.1 % 6 Unknown COMPLETE BLOOD COUNT 8295647 Baso Auto 0.2 % 6 Unknown COMPLETE BLOOD COUNT 3750162 Neutrophil Abs 9.62 10e9/L Unknown COMPLETE BLOOD COUNT 2306910 Lymphoctye Abs 0.76 10e9/L Unknown COMPLETE BLOOD COUNT 1601698 Monocyte Abs 0.78 10e9/L 02/22 Unknown COMPLETE BLOOD COUNT 5187698 Eosinophil Abs 0.01 10e9/L Unknown COMPLETE BLOOD COUNT 3206937 RDW-SD 41.9 fL 6 Unknown COMPLETE BLOOD COUNT 9292599 Basophil Abs 0.02 10e9/L 02/22 Unknown FREE T4 49066 T4 Free 0.89 ng/dL 03/06/2016 Unknown GFR CALC 0180384 GFR Non Afr Amr >60 mL/min 03/06/2016 Un known GFR CALC 0785971 GFR Afr Amr >60 mL/min 03/06/2016 Unknow n PSA EQUIMOLAR JONATAN 79425 PSA Total 0.78 ng/mL 6 Unknown FREE T4 67151 FREE T4 0.90 NG/DL 07/01/2015 Unknown LIPID GROUP 55167 HDL TEST 44 MG/DL 07/01/2015 Unknown LIPID GROUP 50469 TRIG 303 MG/DL 07/01/2015 Unknown LIPID GROUP 59982 TEST LDL 56 MG/DL 07/01/2015 Unknown LIPID GROUP 41369 CHOL 161 MG/DL 07/01/2015 Unknown LIPID GROUP 14271 RCHOL/HDL 3.66 RATIO 07/01/2015 Unknow n LIPID GROUP 36319 NON-HDL CH 117 MG/DL 07/01/2015 Unknow n THYROID STIMULATING HORMONE 03815 TSH 1.783 uIU/ML 07/01/2015 Unknown COMPLETE BLOOD COUNT 3241521 WBC 6.6 10e9/L 07/01/20 15 Unknown COMPLETE BLOOD COUNT 0196320 RBC 4.18 10e12/L 2014 Unknown COMPLETE BLOOD COUNT 8764191 HGB 12.2 g/dL 5 Unknown COMPLETE BLOOD COUNT 6208336 HCT DET 37.0 % 5 Unknown COMPLETE BLOOD COUNT 5937927 MCV 88.5 fL 5 Unknown COMPLETE BLOOD COUNT 0663855 MCH 29.2 pg 5 Unknown COMPLETE BLOOD COUNT 2746632 MCHC 33.0 g/dL 5 Unknown COMPLETE BLOOD COUNT 3039835 PLT 224 10e9/L 07/01/20 15 Unknown COMPLETE BLOOD COUNT 7311650 MPV 10.4 fL 5 Unknown COMPLETE BLOOD COUNT 6788188 SUSIE % 72.6 % 5 Unknown COMPLETE BLOOD COUNT 6292777 LY % 14.1 % 5 Unknown COMPLETE BLOOD COUNT 8619254 MON % 10.2 % 5 Unknown COMPLETE BLOOD COUNT 4801440 EOS % 2.6 % 5 Unknown COMPLETE BLOOD COUNT 5911002 BASO % 0.5 % 5 Unknown COMPLETE BLOOD COUNT 2599134 RDW 14.1 % 5 Unknown COMPLETE BLOOD COUNT 4843460 ABS SUSIE 4.79 10e9/L 015 Unknown COMPLETE BLOOD COUNT 2211170 ABS LYMPH 0.93 10e9/L 015 Unknown COMPLETE BLOOD COUNT 0670594 ABS MONO 0.67 10e9/L 015 Unknown COMPLETE BLOOD COUNT 5913837 ABS EOS 0.17 10e9/L 015 Unknown COMPLETE BLOOD COUNT 7382713 ABS BASO 0.03 10e9/L 015 Unknown COMPLETE BLOOD COUNT 7003758 RDW-SD 43.9 fL 5 Unknown PSA EQUIMOLAR JONATAN 08460 PSA EQ 0.73 NG/ML 5 Unknown COMPREHENSIVE METABOLIC 86446 AST 24 U/L 2014 Unknown COMPREHENSIVE METABOLIC 82908 ALT 26 IU/L 2014 Unknown COMPREHENSIVE METABOLIC 08896 BUN 26 MG/DL 2014 Unknown COMPREHENSIVE METABOLIC 63941 ALBUMIN 4.6 GM/DL 2014 Unknown COMPREHENSIVE METABOLIC 84972 CHLORIDE 102 MMOL/L 06/01 Unknown COMPREHENSIVE METABOLIC 07645 BILI TOT 0.5 MG/DL 2014 Unknown COMPREHENSIVE METABOLIC 94266 ALK PHOS 56 U/L 2014 Unknown COMPREHENSIVE METABOLIC 43399 SODIUM 136 MMOL/L 06/01 Unknown COMPREHENSIVE METABOLIC 65065 CREATININE 1.16 MG/DL 04/2015 Unknown COMPREHENSIVE METABOLIC 28872 CALCIUM 9.8 MG/DL 2014 Unknown COMPREHENSIVE METABOLIC 13349 POTASSIUM 4.6 MMOL/L 06/01 Unknown COMPREHENSIVE METABOLIC 67918 PROT TOT 7.4 GM/DL 2014 Unknown COMPREHENSIVE METABOLIC 97086 Glucose 223 MG/DL 2014 Unknown COMPREHENSIVE METABOLIC 51033 BICARB 27 MMOL/L 2014 Unknown COMPREHENSIVE METABOLIC 46440 ANION GAP 7 MEQ/L 2014 Unknown GFR CALC 5591211 GFR AA >60 ML/MIN 06/01/2015 Unknown GFR CALC 6524998 GFR NON-AA >60 ML/MIN 06/01/2015 Unknown GLYCOSYLATED HEMOGLOBIN TEST 49263 A1C HPLC 01118-9 8.9 % 0 06/01/2015 Unknown GFR CALC 3691611 GFR AA >60 ML/MIN 02/25/2015 Unknown GFR CALC 7097458 GFR NON-AA >60 ML/MIN 02/25/2015 Unknown COMPREHENSIVE METABOLIC 99029 AST 24 U/L 2014 Unknown COMPREHENSIVE METABOLIC 46389 ALT 25 IU/L 2014 Unknown COMPREHENSIVE METABOLIC 17830 BUN 14 MG/DL 2014 Unknown COMPREHENSIVE METABOLIC 24414 ALBUMIN 4.5 GM/DL 2014 Unknown COMPREHENSIVE METABOLIC 75009 CHLORIDE 99 MMOL/L 2014 Unknown COMPREHENSIVE METABOLIC 10499 BILI TOT 0.5 MG/DL 2014 Unknown COMPREHENSIVE METABOLIC 05108 ALK PHOS 48 U/L 2014 Unknown COMPREHENSIVE METABOLIC 41468 SODIUM 136 MMOL/L 02/25 Unknown COMPREHENSIVE METABOLIC 12230 CREATININE 0.97 MG/DL 12/2014 Unknown COMPREHENSIVE METABOLIC 57383 CALCIUM 9.9 MG/DL 2014 Unknown COMPREHENSIVE METABOLIC 45988 POTASSIUM 4.4 MMOL/L 02/25 Unknown COMPREHENSIVE METABOLIC 48160 PROT TOT 7.1 GM/DL 2014 Unknown COMPREHENSIVE METABOLIC 14527 Glucose 171 MG/DL 2014 Unknown COMPREHENSIVE METABOLIC 39313 BICARB 25 MMOL/L 2014 Unknown COMPREHENSIVE METABOLIC 74440 ANION GAP 12 MEQ/L 2014 Unknown PROTEIN/CREAT URINE WITH RATIO 12195|89314 PROT R U 19 MG/D L 08/27/2014 Unknown PROTEIN/CREAT URINE WITH RATIO 98697|94425 CREAT R U 111 MG/ DL 08/27/2014 Unknown PROTEIN/CREAT URINE WITH RATIO 81869|83952 XRATIO P/C 171 MG /G 08/27/2014 Unknown MICROALBUMIN URINE RANDOM 46675 MICRL MG/L 34.7 MG/L 12/2013 Unknown MICROALBUMIN URINE RANDOM 79315 XM.ALB/CRE 32.7 MG/GCR 1 10/28/2013 Unknown MICROALBUMIN URINE RANDOM 96990 CREAT MG/D 106 MG/DL 12/2013 Unknown MICROALBUMIN URINE RANDOM 22870 CRE/100 1.06 G/L 12/2013 Unknown COMPLETE BLOOD COUNT 4680038 WBC 7.1 10e9/L 08/05/20 14 Unknown COMPLETE BLOOD COUNT [id number] RBC 4.35 10e12/L 2013 Unknown COMPLETE BLOOD COUNT [id number] HGB 12.9 g/dL 4 Unknown COMPLETE BLOOD COUNT [id number] HCT DET 39.4 % 4 Unknown COMPLETE BLOOD COUNT [id number] MCV 90.6 fL 4 Unknown COMPLETE BLOOD COUNT [id number] MCH 29.7 pg 4 Unknown COMPLETE BLOOD COUNT 6663853 MCHC 32.7 g/dL 4 Unknown COMPLETE BLOOD COUNT [id number] PLT 240 10e9/L 08/05/20 14 Unknown COMPLETE BLOOD COUNT [id number] MPV 10.3 fL 4 Unknown COMPLETE BLOOD COUNT [id number] SUSIE % 70.0 % 4 Unknown COMPLETE BLOOD COUNT [id number] LY % 16.4 % 4 Unknown COMPLETE BLOOD COUNT [id number] MON % 9.2 % 4 Unknown COMPLETE BLOOD COUNT 7758725 EOS % 3.8 % 4 Unknown COMPLETE BLOOD COUNT [id number] BASO % 0.6 % 4 Unknown COMPLETE BLOOD COUNT [id number] RDW 13.4 % 4 Unknown COMPLETE BLOOD COUNT [id number] ABS SUSIE 4.97 10e9/L 014 Unknown COMPLETE BLOOD COUNT 2638444 ABS LYMPH 1.16 10e9/L 014 Unknown COMPLETE BLOOD COUNT [id number] ABS MONO 0.65 10e9/L 014 Unknown COMPLETE BLOOD COUNT [id number] ABS EOS 0.27 10e9/L 014 Unknown COMPLETE BLOOD COUNT [id number] ABS BASO 0.04 10e9/L 014 Unknown COMPLETE BLOOD COUNT [id number] RDW-SD 43.3 fL 4 Unknown FREE T4 52076 FREE T4 1.02 NG/DL 08/05/2014 Unknown GFR CALC [id number] GFR AA >60 ML/MIN 08/05/2014 Unknown GFR CALC [id number] GFR NON-AA >60 ML/MIN 08/05/2014 Unknown GLYCOSYLATED HEMOGLOBIN TEST 20475 A1C HPLC 96912-1 7.7 % 1 10/05/2013 Unknown COMPREHENSIVE METABOLIC 09821 AST 19 U/L 2013 Unknown COMPREHENSIVE METABOLIC 40189 ALT 21 IU/L 2013 Unknown COMPREHENSIVE METABOLIC 14671 BUN 25 MG/DL 2013 Unknown COMPREHENSIVE METABOLIC 36251 ALBUMIN 4.6 GM/DL 2013 Unknown COMPREHENSIVE METABOLIC 38553 CHLORIDE 103 MMOL/L 08/05 Unknown COMPREHENSIVE METABOLIC 29059 BILI TOT 0.4 MG/DL 2013 Unknown COMPREHENSIVE METABOLIC 42462 ALK PHOS 45 U/L 2013 Unknown COMPREHENSIVE METABOLIC 78304 SODIUM 138 MMOL/L 08/05 Unknown COMPREHENSIVE METABOLIC 89605 CREATININE 1.01 MG/DL 07/25 Unknown COMPREHENSIVE METABOLIC 61655 CALCIUM 9.8 MG/DL 2013 Unknown COMPREHENSIVE METABOLIC 76804 POTASSIUM 4.7 MMOL/L 08/05 Unknown COMPREHENSIVE METABOLIC 26819 PROT TOT 7.0 GM/DL 2013 Unknown COMPREHENSIVE METABOLIC 06095 Glucose 145 MG/DL 2013 Unknown COMPREHENSIVE METABOLIC 28387 BICARB 27 MMOL/L 2013 Unknown COMPREHENSIVE METABOLIC 51493 ANION GAP 8 MEQ/L 2013 Unknown THYROID STIMULATING HORMONE 52185 TSH 1.922 uIU/ML 08/05/2014 Unknown LIPID GROUP 73623 HDL TEST 47 MG/DL 08/05/2014 Unknown LIPID GROUP 57226 TRIG 224 MG/DL 08/05/2014 Unknown LIPID GROUP 71040 TEST LDL 125 MG/DL 08/05/2014 Unknown LIPID GROUP 46378 CHOL 217 MG/DL 08/05/2014 Unknown LIPID GROUP 44363 RCHOL/HDL 4.62 RATIO 08/05/2014 Unknow n LIPID GROUP 06870 NON-HDL CH 170 MG/DL 08/05/2014 Unknow n MYCOPLASMA ANTIBODY, IFA [id number] MYCO G IFA 1:256 03/24 Unknown MYCOPLASMA ANTIBODY, IFA [id number] MYCO M IFA <1:10 03/24 Unknown MYCOPLASMA ANTIBODY, IFA [id number] MYCO INTER SEE BELO 03/24 Unknown COMPLETE BLOOD COUNT 5702176 WBC 8.3 10e9/L 04/09/20 13 Unknown COMPLETE BLOOD COUNT [id number] RBC 4.61 10e12/L 2012 Unknown COMPLETE BLOOD COUNT 1586333 HGB 13.9 g/dL 3 Unknown COMPLETE BLOOD COUNT [id number] HCT DET 41.2 % 3 Unknown COMPLETE BLOOD COUNT 0996353 MCV 89.4 fL 3 Unknown COMPLETE BLOOD COUNT 8631865 MCH 30.2 pg 3 Unknown COMPLETE BLOOD COUNT [id number] MCHC 33.7 g/dL 3 Unknown COMPLETE BLOOD COUNT 6824376 PLT 249 10e9/L 04/09/20 13 Unknown COMPLETE BLOOD COUNT 0109184 MPV 9.8 fL 3 Unknown COMPLETE BLOOD COUNT [id number] SUSIE % 65.9 % 3 Unknown COMPLETE BLOOD COUNT 7883622 LY % 19.8 % 3 Unknown COMPLETE BLOOD COUNT 7794840 MON % 10.8 % 3 Unknown COMPLETE BLOOD COUNT 1574917 EOS % 3.0 % 3 Unknown COMPLETE BLOOD COUNT 8489884 BASO % 0.5 % 3 Unknown COMPLETE BLOOD COUNT 8173502 RDW 14.0 % 3 Unknown COMPLETE BLOOD COUNT [id number] ABS SUSIE 5.47 10e9/L 013 Unknown COMPLETE BLOOD COUNT [id number] ABS LYMPH 1.64 10e9/L 013 Unknown COMPLETE BLOOD COUNT [id number] ABS MONO 0.90 10e9/L 013 Unknown COMPLETE BLOOD COUNT [id number] ABS EOS 0.25 10e9/L 013 Unknown COMPLETE BLOOD COUNT [id number] ABS BASO 0.04 10e9/L 013 Unknown COMPLETE BLOOD COUNT 8833156 RDW-SD 45.0 fL 3 Unknown URIC ACID 98568 URIC ACID 5.3 MG/DL 02/12/2013 Unknown FREE T4 35072 FREE T4 1.09 NG/DL 02/11/2013 Unknown COMPLETE BLOOD COUNT 8934384 WBC 6.3 10e9/L 02/12/20 13 Unknown COMPLETE BLOOD COUNT [id number] RBC 4.29 10e12/L 2012 Unknown COMPLETE BLOOD COUNT 1191015 HGB 13.1 g/dL 3 Unknown COMPLETE BLOOD COUNT 8975884 HCT DET 39.7 % 3 Unknown COMPLETE BLOOD COUNT 5074133 MCV 92.5 fL 3 Unknown COMPLETE BLOOD COUNT 0787372 MCH 30.5 pg 3 Unknown COMPLETE BLOOD COUNT 3950268 MCHC 33.0 g/dL 3 Unknown COMPLETE BLOOD COUNT [id number] PLT 247 10e9/L 02/12/20 13 Unknown COMPLETE BLOOD COUNT [id number] MPV 10.0 fL 3 Unknown COMPLETE BLOOD COUNT 1065970 SUSIE % 73.4 % 3 Unknown COMPLETE BLOOD COUNT 6425944 LY % 13.5 % 3 Unknown COMPLETE BLOOD COUNT 3455265 MON % 9.4 % 3 Unknown COMPLETE BLOOD COUNT 7397340 EOS % 2.9 % 3 Unknown COMPLETE BLOOD COUNT [id number] BASO % 0.8 % 3 Unknown COMPLETE BLOOD COUNT 2646752 RDW 13.8 % 3 Unknown COMPLETE BLOOD COUNT [id number] ABS SUSIE 4.62 10e9/L 013 Unknown COMPLETE BLOOD COUNT [id number] ABS LYMPH 0.85 10e9/L 013 Unknown COMPLETE BLOOD COUNT [id number] ABS MONO 0.59 10e9/L 013 Unknown COMPLETE BLOOD COUNT 7059878 ABS EOS 0.18 10e9/L 013 Unknown COMPLETE BLOOD COUNT 8604285 ABS BASO 0.05 10e9/L 013 Unknown COMPLETE BLOOD COUNT [id number] RDW-SD 45.7 fL 3 Unknown HEMOGLOBIN A1C (GLYCOSYLATED) 8295500 A1C HPLC 67892-2 7.5 % 02/11/2013 Unknown THYROID STIMULATING HORMONE 05717 TSH 1.466 uIU/ML 02/11/2013 Unknown VITAMIN B 12 FOLIC ACID 99621|09726 VIT B 12 625 PG/ML 01/23 Unknown VITAMIN B 12 FOLIC ACID 54292|88141 FOLIC ACID 15.6 NG/ML Unknown COMPREHENSIVE METABOLIC 24815 AST 18 U/L 2012 Unknown COMPREHENSIVE METABOLIC 04410 ALT 21 IU/L 2012 Unknown COMPREHENSIVE METABOLIC 75968 BUN 25 MG/DL 2012 Unknown COMPREHENSIVE METABOLIC 67758 ALBUMIN 4.6 GM/DL 2012 Unknown COMPREHENSIVE METABOLIC 64848 CHLORIDE 103 MMOL/L 02/11 Unknown COMPREHENSIVE METABOLIC 25565 BILI TOT 0.3 MG/DL 2012 Unknown COMPREHENSIVE METABOLIC 63844 ALK PHOS 53 U/L 2012 Unknown COMPREHENSIVE METABOLIC 62594 SODIUM 136 MMOL/L 02/11 Unknown COMPREHENSIVE METABOLIC 80921 CREATININE 1.16 MG/DL 01/23 Unknown COMPREHENSIVE METABOLIC 94911 CALCIUM 10.0 MG/DL 02/11 Unknown COMPREHENSIVE METABOLIC 29435 POTASSIUM 4.9 MMOL/L 02/11 Unknown COMPREHENSIVE METABOLIC 97800 PROT TOT 7.0 GM/DL 2012 Unknown COMPREHENSIVE METABOLIC 26907 Glucose 192 MG/DL 2012 Unknown COMPREHENSIVE METABOLIC 72476 BICARB 26 MMOL/L 2012 Unknown COMPREHENSIVE METABOLIC 16559 ANION GAP 7 MEQ/L 2012 Unknown GFR CALC 7318992 GFR AA >60 ML/MIN 02/11/2013 Unknown GFR CALC 6456763 GFR NON-AA >60 ML/MIN 02/11/2013 Unknown C-REACTIVE PROTEIN (CRP) QUANT 46187 CRP 2.7 MG/DL 02/11/2013 Unknown GFR CALC 5089228 GFR AA >60 ML/MIN 09/19/2012 Unknown GFR CALC 1463716 GFR NON-AA >60 ML/MIN 09/19/2012 Unknown HEMOGLOBIN A1C (GLYCOSYLATED) 8835835 A1C HPLC 08130-4 7.2 % 09/19/2012 Unknown COMPREHENSIVE METABOLIC 23661 AST 13 U/L 2011 Unknown COMPREHENSIVE METABOLIC 25776 ALT 17 IU/L 2011 Unknown COMPREHENSIVE METABOLIC 03156 BUN 25 MG/DL 2011 Unknown COMPREHENSIVE METABOLIC 35046 ALBUMIN 4.5 GM/DL 2011 Unknown COMPREHENSIVE METABOLIC 82176 CHLORIDE 104 MMOL/L 09/19 Unknown COMPREHENSIVE METABOLIC 80977 BILI TOT 0.3 MG/DL 2011 Unknown COMPREHENSIVE METABOLIC 84404 ALK PHOS 43 U/L 2011 Unknown COMPREHENSIVE METABOLIC 25701 SODIUM 139 MMOL/L 09/19 Unknown COMPREHENSIVE METABOLIC 49452 CREATININE 1.10 MG/DL 08/25 Unknown COMPREHENSIVE METABOLIC 21673 CALCIUM 9.8 MG/DL 2011 Unknown COMPREHENSIVE METABOLIC 79492 POTASSIUM 4.8 MMOL/L 09/19 Unknown COMPREHENSIVE METABOLIC 45257 PROT TOT 6.5 GM/DL 2011 Unknown COMPREHENSIVE METABOLIC 01886 Glucose 148 MG/DL 2011 Unknown COMPREHENSIVE METABOLIC 50157 BICARB 25 MMOL/L 2011 Unknown COMPREHENSIVE METABOLIC 50169 ANION GAP 10 MEQ/L 2011 Unknown LIPID GROUP 58969 HDL TEST 44 MG/DL 09/19/2012 Unknown LIPID GROUP 44995 TRIG 318 MG/DL 09/19/2012 Unknown LIPID GROUP 47380 TEST LDL 100 MG/DL 09/19/2012 Unknown LIPID GROUP 22825 CHOL 208 MG/DL 09/19/2012 Unknown LIPID GROUP 62138 RCHOL/HDL 4.73 RATIO 09/19/2012 Unknow n FREE T4 98252 FREE T4 0.87 NG/DL 05/06/2012 Unknown GLYCOSYLATED HEMOGLOBIN TEST 33986 A1C HPLC 92430-9 6.4 % 0 05/06/2012 Unknown LIPID GROUP 51291 HDL TEST 44 MG/DL 05/06/2012 Unknown LIPID GROUP 22092 TRIG 177 MG/DL 05/06/2012 Unknown LIPID GROUP 65339 TEST LDL 113 MG/DL 05/06/2012 Unknown LIPID GROUP 19332 CHOL 192 MG/DL 05/06/2012 Unknown LIPID GROUP 85291 RCHOL/HDL 4.36 RATIO 05/06/2012 Unknow n THYROID STIMULATING HORMONE 93047 TSH 1.151 uIU/ML 05/06/2012 Unknown COMPLETE BLOOD COUNT 22685 WBC 7.8 10e9/L 05/06/20 12 Unknown COMPLETE BLOOD COUNT 79173 RBC 4.31 10e12/L 2011 Unknown COMPLETE BLOOD COUNT 56019 HGB 12.8 g/dL 2 Unknown COMPLETE BLOOD COUNT 97778 HCT DET 39.1 % 2 Unknown COMPLETE BLOOD COUNT 12179 MCV 90.7 fL 2 Unknown COMPLETE BLOOD COUNT 71689 MCH 29.7 pg 2 Unknown COMPLETE BLOOD COUNT 63549 MCHC 32.7 g/dL 2 Unknown COMPLETE BLOOD COUNT 23941 PLT 207 10e9/L 05/06/20 12 Unknown COMPLETE BLOOD COUNT 64062 MPV 10.2 fL 2 Unknown COMPLETE BLOOD COUNT 30219 SUSIE % 74.2 % 2 Unknown COMPLETE BLOOD COUNT 99881 LY % 12.8 % 2 Unknown COMPLETE BLOOD COUNT 75113 MON % 11.0 % 2 Unknown COMPLETE BLOOD COUNT 26841 EOS % 1.7 % 2 Unknown COMPLETE BLOOD COUNT 12385 BASO % 0.3 % 2 Unknown COMPLETE BLOOD COUNT 76050 RDW 13.7 % 2 Unknown COMPLETE BLOOD COUNT 25669 ABS SUSIE 5.79 10e9/L 012 Unknown COMPLETE BLOOD COUNT 91006 ABS LYMPH 1.00 10e9/L 012 Unknown COMPLETE BLOOD COUNT 81764 ABS MONO 0.86 10e9/L 012 Unknown COMPLETE BLOOD COUNT 94515 ABS EOS 0.13 10e9/L 012 Unknown COMPLETE BLOOD COUNT 37582 ABS BASO 0.02 10e9/L 012 Unknown COMPLETE BLOOD COUNT 59345 RDW-SD 44.4 fL 2 Unknown COMPREHENSIVE METABOLIC 62416 AST 13 U/L 2011 Unknown COMPREHENSIVE METABOLIC 32744 ALT 14 IU/L 2011 Unknown COMPREHENSIVE METABOLIC 82919 BUN 17 MG/DL 2011 Unknown COMPREHENSIVE METABOLIC 63692 ALBUMIN 4.5 GM/DL 2011 Unknown COMPREHENSIVE METABOLIC 71866 CHLORIDE 101 MMOL/L 05/06 Unknown COMPREHENSIVE METABOLIC 00104 BILI TOT 0.5 MG/DL 2011 Unknown COMPREHENSIVE METABOLIC 95442 ALK PHOS 42 U/L 2011 Unknown COMPREHENSIVE METABOLIC 15641 SODIUM 141 MMOL/L 05/06 Unknown COMPREHENSIVE METABOLIC 10430 CREATININE 1.02 MG/DL 04/24 Unknown COMPREHENSIVE METABOLIC 61189 CALCIUM 9.7 MG/DL 2011 Unknown COMPREHENSIVE METABOLIC 42603 POTASSIUM 4.6 MMOL/L 05/06 Unknown COMPREHENSIVE METABOLIC 82073 PROT TOT 6.5 GM/DL 2011 Unknown COMPREHENSIVE METABOLIC 77737 Glucose 139 MG/DL 2011 Unknown COMPREHENSIVE METABOLIC 19257 BICARB 29 MMOL/L 2011 Unknown COMPREHENSIVE METABOLIC 17861 ANION GAP 11 MEQ/L 2011 Unknown GFR CALC 2324557 GFR AA >60 ML/MIN 05/06/2012 Unknown GFR CALC 8050020 GFR NON-AA 54.0L ML/MIN 05/06/2012 Unkno wn GLYCOSYLATED HEMOGLOBIN TEST 40669 A1C HPLC 57536-4 6.6 % 1 09/30/2010 Unknown FREE T4 66092 FREE T4 1.00 NG/DL 07/26/2011 Unknown LIPID GROUP 86772 HDL TEST 40 MG/DL 07/26/2011 Unknown LIPID GROUP 89326 TRIG 136 MG/DL 07/26/2011 Unknown LIPID GROUP 67207 TEST LDL 126 MG/DL 07/26/2011 Unknown LIPID GROUP 62825 CHOL 193 MG/DL 07/26/2011 Unknown LIPID GROUP 72999 RCHOL/HDL 4.83 RATIO 07/26/2011 Unknow n COMPREHENSIVE METABOLIC 13891 AST 15 U/L 2010 Unknown COMPREHENSIVE METABOLIC 49840 ALT 13 IU/L 2010 Unknown COMPREHENSIVE METABOLIC 28740 BUN 17 MG/DL 2010 Unknown COMPREHENSIVE METABOLIC 81271 ALBUMIN 4.4 GM/DL 2010 Unknown COMPREHENSIVE METABOLIC 15165 CHLORIDE 102 MMOL/L 07/26 Unknown COMPREHENSIVE METABOLIC 24313 BILI TOT 0.5 MG/DL 2010 Unknown COMPREHENSIVE METABOLIC 67555 ALK PHOS 54 U/L 2010 Unknown COMPREHENSIVE METABOLIC 67815 SODIUM 138 MMOL/L 07/26 Unknown COMPREHENSIVE METABOLIC 30548 CREATININE 0.95 MG/DL 10/2010 Unknown COMPREHENSIVE METABOLIC 83680 CALCIUM 9.3 MG/DL 2010 Unknown COMPREHENSIVE METABOLIC 91455 POTASSIUM 4.3 MMOL/L 07/26 Unknown COMPREHENSIVE METABOLIC 52557 PROT TOT 6.7 GM/DL 2010 Unknown COMPREHENSIVE METABOLIC 32249 Glucose 116 MG/DL 2010 Unknown COMPREHENSIVE METABOLIC 80824 BICARB 28 MMOL/L 2010 Unknown COMPREHENSIVE METABOLIC 17444 ANION GAP 8 MEQ/L 2010 Unknown PSA EQUIMOLAR JONATAN 50562 PSA EQ 1.01 NG/ML 1 Unknown COMPLETE BLOOD COUNT 53395 WBC 6.4 10e9/L 07/26/20 11 Unknown COMPLETE BLOOD COUNT 91818 RBC 4.43 10e12/L 2010 Unknown COMPLETE BLOOD COUNT 44716 HGB 13.2 g/dL 1 Unknown COMPLETE BLOOD COUNT 77325 HCT DET 39.3 % 1 Unknown COMPLETE BLOOD COUNT 93391 MCV 88.7 fL 1 Unknown COMPLETE BLOOD COUNT 68367 MCH 29.8 pg 1 Unknown COMPLETE BLOOD COUNT 34324 MCHC 33.6 g/dL 1 Unknown COMPLETE BLOOD COUNT 65805 PLT 226 10e9/L 07/26/20 11 Unknown COMPLETE BLOOD COUNT 99129 MPV 9.9 fL 1 Unknown COMPLETE BLOOD COUNT 24899 SUSIE % 65.4 % 1 Unknown COMPLETE BLOOD COUNT 22987 LY % 19.7 % 1 Unknown COMPLETE BLOOD COUNT 93626 MON % 10.8 % 1 Unknown COMPLETE BLOOD COUNT 59255 EOS % 3.6 % 1 Unknown COMPLETE BLOOD COUNT 43314 BASO % 0.5 % 1 Unknown COMPLETE BLOOD COUNT 99241 RDW 13.2 % 1 Unknown COMPLETE BLOOD COUNT 07025 ABS SUSIE 4.19 10e9/L 011 Unknown COMPLETE BLOOD COUNT 66964 ABS LYMPH 1.26 10e9/L 011 Unknown COMPLETE BLOOD COUNT 38709 ABS MONO 0.69 10e9/L 011 Unknown COMPLETE BLOOD COUNT 34596 ABS EOS 0.23 10e9/L 011 Unknown COMPLETE BLOOD COUNT 44062 ABS BASO 0.03 10e9/L 011 Unknown COMPLETE BLOOD COUNT 77174 RDW-SD 41.7 fL 1 Unknown THYROID STIMULATING HORMONE 89804 TSH 1.345 uIU/ML 07/26/2011 Unknown GFR CALC 9548909 GFR AA >60 ML/MIN 07/26/2011 Unknown GFR CALC 4000213 GFR NON-AA >60 ML/MIN 07/26/2011 Unknown BRAIN NATRIURETIC PEPTIDE(BNP) 22074 BRAIN PEP 23 pg/mL 01/19/2011 Unknown CANCEL 4260095 CANCEL FOOTNOTE 01/18/2011 Unknown TESTOSTERONE TOTAL 18564 TESTOS TO 138 NG/DL 12/19/2010 Unknown COMPLETE BLOOD COUNT 49316 WBC 8.4 10e9/L 12/08/19 11 Unknown COMPLETE BLOOD COUNT 59153 RBC 4.40 10e12/L 2010 Unknown COMPLETE BLOOD COUNT 96125 HGB 13.3 g/dL 1 Unknown COMPLETE BLOOD COUNT 41042 HCT DET 39.8 % 1 Unknown COMPLETE BLOOD COUNT 74368 MCV 90.5 fL 1 Unknown COMPLETE BLOOD COUNT 96113 MCH 30.2 pg 1 Unknown COMPLETE BLOOD COUNT 15952 MCHC 33.4 g/dL 1 Unknown COMPLETE BLOOD COUNT 97305 PLT 201 10e9/L 12/08/19 11 Unknown COMPLETE BLOOD COUNT 34469 MPV 10.6 fL 1 Unknown COMPLETE BLOOD COUNT 42713 SUSIE % 72.5 % 1 Unknown COMPLETE BLOOD COUNT 08214 LY % 14.8 % 1 Unknown COMPLETE BLOOD COUNT 50616 MON % 10.6 % 1 Unknown COMPLETE BLOOD COUNT 43632 EOS % 1.7 % 1 Unknown COMPLETE BLOOD COUNT 24941 BASO % 0.4 % 1 Unknown COMPLETE BLOOD COUNT 91946 RDW 13.7 % 1 Unknown COMPLETE BLOOD COUNT 49622 ABS SUSIE 6.09 10e9/L 011 Unknown COMPLETE BLOOD COUNT 26948 ABS LYMPH 1.24 10e9/L 011 Unknown COMPLETE BLOOD COUNT 13163 ABS MONO 0.89 10e9/L 011 Unknown COMPLETE BLOOD COUNT 55167 ABS EOS 0.14 10e9/L 011 Unknown COMPLETE BLOOD COUNT 32518 ABS BASO 0.03 10e9/L 011 Unknown COMPLETE BLOOD COUNT 06915 RDW-SD 44.0 fL 1 Unknown LIPID GROUP 19425 HDL TEST 40 MG/DL 12/07/2010 Unknown LIPID GROUP 82308 TRIG 383 MG/DL 12/07/2010 Unknown LIPID GROUP 57221 TEST LDL 82 MG/DL 12/07/2010 Unknown LIPID GROUP 54946 CHOL 199 MG/DL 12/07/2010 Unknown LIPID GROUP 77298 RCHOL/HDL 4.98 RATIO 12/07/2010 Unknow n GFR CALC 7262243 GFR AA >60 ML/MIN 12/07/2010 Unknown GFR CALC 3599777 GFR NON-AA >60 ML/MIN 12/07/2010 Unknown COMPREHENSIVE METABOLIC 36705 AST 29 U/L 2010 Unknown COMPREHENSIVE METABOLIC 98978 ALT 39 IU/L 2010 Unknown COMPREHENSIVE METABOLIC 02513 BUN 17 MG/DL 2010 Unknown COMPREHENSIVE METABOLIC 68502 ALBUMIN 4.9 GM/DL 2010 Unknown COMPREHENSIVE METABOLIC 29334 CHLORIDE 100 MMOL/L 12/07 Unknown COMPREHENSIVE METABOLIC 21572 BILI TOT 0.3 MG/DL 2010 Unknown COMPREHENSIVE METABOLIC 13390 ALK PHOS 53 U/L 2010 Unknown COMPREHENSIVE METABOLIC 13152 SODIUM 137 MMOL/L 12/07 Unknown COMPREHENSIVE METABOLIC 21999 CREATININE 0.98 MG/DL 11/22 Unknown COMPREHENSIVE METABOLIC 89037 CALCIUM 9.5 MG/DL 2010 Unknown COMPREHENSIVE METABOLIC 58150 POTASSIUM 4.3 MMOL/L 12/07 Unknown COMPREHENSIVE METABOLIC 11350 PROT TOT 6.6 GM/DL 2010 Unknown COMPREHENSIVE METABOLIC 02603 Glucose 176 MG/DL 2010 Unknown COMPREHENSIVE METABOLIC 67410 BICARB 28 MMOL/L 2010 Unknown COMPREHENSIVE METABOLIC 88817 ANION GAP 9 MEQ/L 2010 Unknown PSA EQUIMOLAR JONATAN 20356 PSA EQ 0.65 NG/ML 1 Unknown HEMOGLOBIN A1C (GLYCOSYLATED) 79505 A1C HPLC 54379-1 6.9 % 12/07/2010 Unknown Procedures Procedure Codes Date FLU VACC PRSV FREE INC ANTIG 65 AND OLDER CPT-4: 26911 08/07/2019 FLU VACC PRSV FREE INC ANTIG 65 AND OLDER CPT-4: 95259 08/07/2019 ADMIN INFLUENZA VIRUS VAC CPT-4: G0008 08/07/2019 THER/PROPH/DIAG INJ SC/IM CPT-4: 39683 07/14/2019 METHYLPREDNISOLONE INJECTION CPT-4: J2930 07/14/2019 ROUTINE VENIPUNCTURE CPT-4: 58199 06/17/2019 ASSAY THYROID STIM HORMONE CPT-4: 72840 06/17/2019 COMPREHEN METABOLIC PANEL CPT-4: 88430 06/17/2019 COMPLETE CBC W/AUTO DIFF WBC CPT-4: 39441 06/17/2019 ASSAY OF IRON CPT-4: 66087 06/17/2019 VITAMIN B-12 CPT-4: 42450 06/17/2019 RBC SED RATE AUTOMATED CPT-4: 34516 06/17/2019 THER/PROPH/DIAG INJ SC/IM CPT-4: 92773 06/10/2019 THER/PROPH/DIAG INJ SC/IM CPT-4: 28031 06/02/2019 THER/PROPH/DIAG INJ SC/IM CPT-4: 51858 05/27/2019 THER/PROPH/DIAG INJ SC/IM CPT-4: 35097 05/12/2019 ROUTINE VENIPUNCTURE CPT-4: 29526 05/08/2019 COMPREHEN METABOLIC PANEL CPT-4: 24923 05/08/2019 COMPLETE CBC W/AUTO DIFF WBC CPT-4: 22462 05/08/2019 A1C HPLC CPT-4: 84006 05/08/2019 VITAMIN D TOTAL (25 HYDROXY) CPT-4: 32075 05/08/2019 ASSAY OF IRON CPT-4: 01374 05/08/2019 ASSAY OF FERRITIN CPT-4: 74951 05/08/2019 VITAMIN B-12 CPT-4: 07427 05/08/2019 THER/PROPH/DIAG INJ SC/IM CPT-4: 60107 03/21/2019 METHYLPREDNISOLONE INJECTION CPT-4: J2930 03/21/2019 THER/PROPH/DIAG INJ SC/IM CPT-4: 60367 03/13/2019 METHYLPREDNISOLONE INJECTION CPT-4: J2930 03/13/2019 THER/PROPH/DIAG INJ SC/IM CPT-4: 12244 12/25/2018 METHYLPREDNISOLONE INJECTION CPT-4: J2930 12/25/2018 ROUTINE VENIPUNCTURE CPT-4: 78336 12/09/2018 ASSAY OF FREE THYROXINE CPT-4: 46405 12/09/2018 ASSAY THYROID STIM HORMONE CPT-4: 81886 12/09/2018 COMPREHEN METABOLIC PANEL CPT-4: 42736 12/09/2018 COMPLETE CBC W/AUTO DIFF WBC CPT-4: 63810 12/09/2018 LIPID PANEL CPT-4: 70485 12/09/2018 A1C HPLC CPT-4: 58382 12/09/2018 PRESCRIP TRANSMIT VIA ERX SY CPT-4: G8553 08/21/2018 PRESCRIP TRANSMIT VIA ERX SY CPT-4: G8553 08/07/2018 THER/PROPH/DIAG INJ SC/IM CPT-4: 71091 05/23/2018 METHYLPREDNISOLONE INJECTION CPT-4: J2930 05/23/2018 PRESCRIP TRANSMIT VIA ERX SY CPT-4: G8553 05/02/2018 THER/PROPH/DIAG INJ SC/IM CPT-4: 60520 04/29/2018 METHYLPREDNISOLONE INJECTION CPT-4: J2930 04/29/2018 DEXAMETHASONE SODIUM PHOS CPT-4: J1100 04/22/2018 THER/PROPH/DIAG INJ SC/IM CPT-4: 82258 04/22/2018 TRIAMCINOLONE ACET INJ NOS CPT-4: J3301 04/22/2018 PRESCRIP TRANSMIT VIA ERX SY CPT-4: G8553 04/22/2018 PRESCRIP TRANSMIT VIA ERX SY CPT-4: G8553 01/23/2018 URINALYSIS NONAUTO W/O SCOPE CPT-4: 08296 01/02/2018 URINE CULTURE/ COLONY COUNT CPT-4: 25234 01/02/2018 PRESCRIP TRANSMIT VIA ERX SY CPT-4: G8553 01/02/2018 PRESCRIP TRANSMIT VIA ERX SY CPT-4: G8553 12/28/2017 PRESCRIP TRANSMIT VIA ERX SY CPT-4: G8553 12/21/2017 CEFTRIAXONE SODIUM INJECTION CPT-4: J0696 12/17/2017 THER/PROPH/DIAG INJ SC/IM CPT-4: 10081 12/17/2017 THER/PROPH/DIAG INJ SC/IM CPT-4: 13856 12/17/2017 TRIAMCINOLONE ACET INJ NOS CPT-4: J3301 12/17/2017 PRESCRIP TRANSMIT VIA ERX SY CPT-4: G8553 12/17/2017 DRAIN/INJECT JOINT/BURSA CPT-4: 80761 12/11/2017 TRIAMCINOLONE ACET INJ NOS CPT-4: J3301 12/11/2017 DEXAMETHASONE SODIUM PHOS CPT-4: J1100 12/11/2017 DESTRUCT PREMALG LESION (Cryosurgery) CPT-4: 58470 PRESCRIP TRANSMIT VIA ERX SY CPT-4: G8553 10/17/2017 DEXAMETHASONE SODIUM PHOS CPT-4: J1100 08/02/2017 THER/PROPH/DIAG INJ SC/IM CPT-4: 55364 08/02/2017 TRIAMCINOLONE ACET INJ NOS CPT-4: J3301 08/02/2017 PRESCRIP TRANSMIT VIA ERX SY CPT-4: G8553 08/02/2017 PNEUMOCOCCAL VACC 23 OLIVIA IM CPT-4: 79695 07/24/2017 ADMIN PNEUMOCOCCAL VACCINE CPT-4: G0009 07/24/2017 ALBUTEROL NON-COMP UNIT CPT-4: J7613 07/02/2017 AIRWAY INHALATION TREATMENT CPT-4: 63446 07/02/2017 THER/PROPH/DIAG INJ SC/IM CPT-4: 42234 07/02/2017 METHYLPREDNISOLONE INJECTION CPT-4: J2930 07/02/2017 PRESCRIP TRANSMIT VIA ERX SY CPT-4: G8553 05/29/2017 ROUTINE VENIPUNCTURE CPT-4: 53741 04/17/2017 ASSAY OF IRON CPT-4: 66446 04/17/2017 VITAMIN B-12 CPT-4: 78138 04/17/2017 COMPREHEN METABOLIC PANEL CPT-4: 45210 04/17/2017 COMPLETE CBC W/AUTO DIFF WBC CPT-4: 95585 04/17/2017 ASSAY OF FERRITIN CPT-4: 20652 04/17/2017 ASSAY THYROID STIM HORMONE CPT-4: 55959 04/17/2017 A1C HPLC CPT-4: 33019 04/17/2017 DRAIN/INJECT JOINT/BURSA CPT-4: 14873 02/01/2017 TRIAMCINOLONE ACET INJ NOS CPT-4: J3301 02/01/2017 DEXAMETHASONE SODIUM PHOS CPT-4: J1100 02/01/2017 ROUTINE VENIPUNCTURE CPT-4: 32623 12/27/2016 COMPLETE CBC W/AUTO DIFF WBC CPT-4: 18140 12/27/2016 ROUTINE VENIPUNCTURE CPT-4: 24108 12/21/2016 COMPLETE CBC W/AUTO DIFF WBC CPT-4: 27138 12/21/2016 ROUTINE VENIPUNCTURE CPT-4: 39388 12/12/2016 COMPLETE CBC W/AUTO DIFF WBC CPT-4: 25410 12/12/2016 PRESCRIP TRANSMIT VIA ERX SY CPT-4: G8553 10/31/2016 PRESCRIP TRANSMIT VIA ERX SY CPT-4: G8553 10/03/2016 PRESCRIP TRANSMIT VIA ERX SY CPT-4: G8553 09/04/2016 DESTRUCT PREMALG LESION (Cryosurgery) CPT-4: 85254 DESTRUCT PREMALG LES 2-14 CPT-4: 51281 08/22/2016 PRESCRIP TRANSMIT VIA ERX SY CPT-4: G8553 08/10/2016 PRESCRIP TRANSMIT VIA ERX SY CPT-4: G8553 07/06/2016 FLU VACC PRSV FREE INC ANTIG 65 AND OLDER CPT-4: 51267 06/13/2016 PNEUMOCOCCAL VACC 13 OLIVIA IM CPT-4: 82075 06/13/2016 ADMIN INFLUENZA VIRUS VAC CPT-4: G0008 06/13/2016 ADMIN PNEUMOCOCCAL VACCINE CPT-4: G0009 06/13/2016 CERUM REMOVAL CPT-4: 58269 04/05/2016 PRESCRIP TRANSMIT VIA ERX SY CPT-4: G8553 04/03/2016 ROUTINE VENIPUNCTURE CPT-4: 69423 03/06/2016 ASSAY OF FREE THYROXINE CPT-4: 25242 03/06/2016 ASSAY THYROID STIM HORMONE CPT-4: 59158 03/06/2016 COMPREHEN METABOLIC PANEL CPT-4: 90511 03/06/2016 COMPLETE CBC W/AUTO DIFF WBC CPT-4: 93196 03/06/2016 LIPID PANEL CPT-4: 37490 03/06/2016 ASSAY OF PSA TOTAL CPT-4: 39283 03/06/2016 TESTOSTERONE TOTAL - MALE CPT-4: 59422 03/06/2016 A1C HPLC CPT-4: 67442 03/06/2016 ASSAY OF IRON CPT-4: 16128 03/06/2016 VITAMIN B-12 CPT-4: 09754 03/06/2016 INJ TENDON SHEATH/LIGAMENT CPT-4: 29967 02/17/2016 TRIAMCINOLONE ACET INJ NOS CPT-4: J3301 02/17/2016 DEXAMETHASONE SODIUM PHOS CPT-4: J1100 02/17/2016 PRESCRIP TRANSMIT VIA ERX SY CPT-4: G8553 01/31/2016 PRESCRIP TRANSMIT VIA ERX SY CPT-4: G8553 12/30/2015 PRESCRIP TRANSMIT VIA ERX SY CPT-4: G8553 12/06/2015 PRESCRIP TRANSMIT VIA ERX SY CPT-4: G8553 11/15/2015 PPPS, subseq visit CPT-4: G0439 10/05/2015 MICROALBUMIN QUANTITATIVE CPT-4: 16265 10/05/2015 PROTEIN/CREAT URINE WITH RATIO CPT-4: 26989|57744 6 ROUTINE VENIPUNCTURE CPT-4: 90650 07/01/2015 ASSAY OF FREE THYROXINE CPT-4: 53508 07/01/2015 ASSAY THYROID STIM HORMONE CPT-4: 91147 07/01/2015 COMPLETE CBC W/AUTO DIFF WBC CPT-4: 20729 07/01/2015 LIPID PANEL CPT-4: 79682 07/01/2015 ASSAY OF PSA TOTAL CPT-4: 04395 07/01/2015 AEROBIC WOUND CULTURE & STN CPT-4: 96253 06/28/2015 PRESCRIP TRANSMIT VIA ERX SY CPT-4: G8553 06/28/2015 AEROBIC WOUND CULTURE & STN CPT-4: 91538 06/03/2015 PRESCRIP TRANSMIT VIA ERX SY CPT-4: G8553 06/03/2015 ROUTINE VENIPUNCTURE CPT-4: 67271 06/01/2015 COMPREHEN METABOLIC PANEL CPT-4: 25063 06/01/2015 A1C HPLC CPT-4: 91391 06/01/2015 COMPREHEN METABOLIC PANEL CPT-4: 22341 02/25/2015 A1C HPLC CPT-4: 54646 02/25/2015 DESTRUCT PREMALG LESION (Cryosurgery) CPT-4: 90138 PROTEIN/CREAT URINE WITH RATIO CPT-4: 78314|17780 5 MICROALBUMIN QUANTITATIVE CPT-4: 41118 10/27/2014 INFLUENZA ASSAY W/OPTIC CPT-4: 51958 10/21/2014 PRESCRIP TRANSMIT VIA ERX SY CPT-4: G8553 10/06/2014 PRESCRIP TRANSMIT VIA ERX SY CPT-4: G8553 09/21/2014 PRESCRIP TRANSMIT VIA ERX SY CPT-4: G8553 09/02/2014 MICROALBUMIN QUANTITATIVE CPT-4: 74520 08/27/2014 PROTEIN/CREAT URINE WITH RATIO CPT-4: 19585|46001 4 PPPS, subseq visit CPT-4: G0439 08/10/2014 ROUTINE VENIPUNCTURE CPT-4: 73260 08/05/2014 ASSAY OF FREE THYROXINE CPT-4: 84323 08/05/2014 ASSAY THYROID STIM HORMONE CPT-4: 26963 08/05/2014 COMPREHEN METABOLIC PANEL CPT-4: 52039 08/05/2014 COMPLETE CBC W/AUTO DIFF WBC CPT-4: 29388 08/05/2014 LIPID PANEL CPT-4: 60705 08/05/2014 A1C HPLC CPT-4: 39651 08/05/2014 FLUZONE, 5ML (Medicare) CPT-4: Q2038 08/05/2014 ADMIN INFLUENZA VIRUS VAC CPT-4: G0008 08/05/2014 METHYLPREDNISOLONE 40 MG INJ CPT-4: J1030 12/16/2013 TRIAMCINOLONE ACET INJ NOS CPT-4: J3301 12/16/2013 DRAIN/INJECT JOINT/BURSA CPT-4: 68973 12/16/2013 PRESCRIP TRANSMIT VIA ERX SY CPT-4: G8553 10/09/2013 THER/PROPH/DIAG INJ SC/IM CPT-4: 83797 09/18/2013 METHYLPREDNISOLONE 40 MG INJ CPT-4: J1030 09/18/2013 TRIAMCINOLONE ACET INJ NOS CPT-4: J3301 09/18/2013 PRESCRIP TRANSMIT VIA ERX SY CPT-4: G8553 09/18/2013 PRESCRIP TRANSMIT VIA ERX SY CPT-4: G8553 08/13/2013 ROUTINE VENIPUNCTURE CPT-4: 33552 06/25/2013 ASSAY OF FREE THYROXINE CPT-4: 85747 06/25/2013 ASSAY THYROID STIM HORMONE CPT-4: 33308 06/25/2013 COMPREHEN METABOLIC PANEL CPT-4: 56111 06/25/2013 COMPLETE CBC W/AUTO DIFF WBC CPT-4: 57745 06/25/2013 LIPID PANEL CPT-4: 80156 06/25/2013 A1C GLYCOSYLATED HEMOGLOBIN TEST CPT-4: 01831 013 ROUTINE VENIPUNCTURE CPT-4: 61447 04/09/2013 COMPLETE CBC W/AUTO DIFF WBC CPT-4: 94173 04/09/2013 MYCOPLASMA ANTIBODY, IFA CPT-4: 20301S9 04/09/2013 ROUTINE VENIPUNCTURE CPT-4: 53618 02/11/2013 ASSAY OF FREE THYROXINE CPT-4: 76460 02/11/2013 ASSAY THYROID STIM HORMONE CPT-4: 43779 02/11/2013 COMPREHEN METABOLIC PANEL CPT-4: 16074 02/11/2013 COMPLETE CBC W/AUTO DIFF WBC CPT-4: 74531 02/11/2013 VITAMIN B 12 FOLIC ACID CPT-4: 26510|03508 02/11/2013 C-REACTIVE PROTEIN CPT-4: 66388 02/11/2013 A1C GLYCOSYLATED HEMOGLOBIN TEST CPT-4: 84702 013 ASSAY OF BLOOD/URIC ACID CPT-4: 64020 02/11/2013 CEFTRIAXONE SODIUM INJECTION CPT-4: J0696 01/31/2013 THER/PROPH/DIAG INJ SC/IM CPT-4: 41423 01/31/2013 THER/PROPH/DIAG INJ SC/IM CPT-4: 93050 01/31/2013 METHYLPREDNISOLONE 40 MG INJ CPT-4: J1030 01/31/2013 TRIAMCINOLONE ACET INJ NOS CPT-4: J3301 01/31/2013 ROUTINE VENIPUNCTURE CPT-4: 24893 09/19/2012 COMPREHEN METABOLIC PANEL CPT-4: 52791 09/19/2012 LIPID PANEL CPT-4: 66506 09/19/2012 A1C GLYCOSYLATED HEMOGLOBIN TEST CPT-4: 19079 012 PNEUMOCOCCAL VACC 23 OLIVIA IM CPT-4: 77691 07/10/2012 FLUZONE, 5ML (Medicare) CPT-4: Q2038 07/10/2012 ADMIN INFLUENZA VIRUS VAC CPT-4: G0008 07/10/2012 ADMIN PNEUMOCOCCAL VACCINE CPT-4: G0009 07/10/2012 ROUTINE VENIPUNCTURE CPT-4: 06108 05/06/2012 ASSAY OF FREE THYROXINE CPT-4: 76707 05/06/2012 ASSAY THYROID STIM HORMONE CPT-4: 02987 05/06/2012 COMPREHEN METABOLIC PANEL CPT-4: 93320 05/06/2012 COMPLETE CBC W/AUTO DIFF WBC CPT-4: 45117 05/06/2012 LIPID PANEL CPT-4: 71592 05/06/2012 A1C GLYCOSYLATED HEMOGLOBIN TEST CPT-4: 42828 012 IMMUNIZATION ADMIN CPT-4: 69656 02/05/2012 FLUZONE, 5ML (Medicare) CPT-4: Q2038 08/10/2011 ADMIN INFLUENZA VIRUS VAC CPT-4: G0008 08/10/2011 ROUTINE VENIPUNCTURE CPT-4: 71239 07/26/2011 ASSAY OF FREE THYROXINE CPT-4: 85459 07/26/2011 ASSAY THYROID STIM HORMONE CPT-4: 08341 07/26/2011 COMPREHEN METABOLIC PANEL CPT-4: 31435 07/26/2011 COMPLETE CBC W/AUTO DIFF WBC CPT-4: 45845 07/26/2011 LIPID PANEL CPT-4: 62900 07/26/2011 A1C GLYCOSYLATED HEMOGLOBIN TEST CPT-4: 28933 011 ASSAY OF PSA TOTAL CPT-4: 39523 07/26/2011 ROUTINE VENIPUNCTURE CPT-4: 43902 01/19/2011 ASSAY OF NATRIURETIC PEPTIDE CPT-4: 21383 01/19/2011 THER/PROPH/DIAG INJ SC/IM CPT-4: 67179 01/19/2011 CEFTRIAXONE SODIUM INJECTION CPT-4: J0696 01/19/2011 METHYLPREDNISOLONE INJECTION CPT-4: J2930 01/19/2011 THER/PROPH/DIAG INJ SC/IM CPT-4: 89454 01/19/2011 THER/PROPH/DIAG INJ SC/IM CPT-4: 92102 01/18/2011 CEFTRIAXONE SODIUM INJECTION CPT-4: J0696 01/18/2011 METHYLPREDNISOLONE INJECTION CPT-4: J2930 01/18/2011 THER/PROPH/DIAG INJ SC/IM CPT-4: 54286 01/18/2011 THER/PROPH/DIAG INJ SC/IM CPT-4: 69582 12/21/2010 TESTOSTERONE CYPIONAT 100 MG CPT-4: J1070 12/21/2010 ROUTINE VENIPUNCTURE CPT-4: 27061 12/19/2010 TESTOSTERONE TOTAL - MALE CPT-4: 72775 12/19/2010 ROUTINE VENIPUNCTURE CPT-4: 20930 12/07/2010 COMPLETE CBC W/AUTO DIFF WBC CPT-4: 76005 12/07/2010 COMPREHEN METABOLIC PANEL CPT-4: 40707 12/07/2010 LIPID PANEL CPT-4: 07772 12/07/2010 A1C GLYCOSYLATED HEMOGLOBIN TEST CPT-4: 80942 011 ASSAY OF PSA TOTAL CPT-4: 31617 12/07/2010 ROUTINE VENIPUNCTURE CPT-4: 99954 04/05/2010 PRESCRIP TRANSMIT VIA ERX SY CPT-4: G8553 04/05/2010 ROUTINE VENIPUNCTURE CPT-4: 01325 01/13/2010 METHYLPREDNISOLONE INJECTION CPT-4: J2930 12/22/2009 THER/PROPH/DIAG INJ SC/IM CPT-4: 24884 12/22/2009 THER/PROPH/DIAG INJ SC/IM CPT-4: 48787 12/22/2009 CEFTRIAXONE SODIUM INJECTION CPT-4: J0696 12/22/2009 ROUTINE VENIPUNCTURE CPT-4: 86079 12/22/2009 COMPLETE CBC W/AUTO DIFF WBC CPT-4: 94873 12/22/2009 RBC SED RATE, AUTOMATED CPT-4: 63005 12/22/2009 RPR FE/E/EN/L/M 20.1-30.0 CM CPT-4: 02995 12/22/2009 EKG FOR INITIAL PREVENT EXAM CPT-4: G0403 12/22/2009 THER/PROPH/DIAG INJ SC/IM CPT-4: 62687 12/16/2009 KETOROLAC TROMETHAMINE INJ CPT-4: J1885 12/16/2009 [...] 1: 126/68 Code: 8480-6 BMI: 30.2 Code: 71794-7 Heart Rate 1: 92 bpm Height: 6' Respiratory Rate: 22 bpm SpO2: 94% Tempera ture: 36.9 (C) / 98.5 (F) Weight: 223 lbs 08/21/2018 Blood Pressure 1: 160/70 Code: 8480-6 Heart Rate 1: 79 bpm Respiratory Rate: 20 bpm SpO2: 94% Temperature: 36.7 (C) / 98.0 (F) We ight: 226 lbs 8 oz 08/07/2018 Blood Pressure 1: 138/70 Code: 8480-6 BMI: 30.1 Code: 81035-0 Heart Rate 1: 80 bpm Height: 6' Respiratory Rate: 20 bpm SpO2: 94% Tempera ture: 36.9 (C) / 98.5 (F) Weight: 222 lbs 05/23/2018 Blood Pressure 1: 148/66 Code: 8480-6 BMI: 30.0 Code: 44125-2 Heart Rate 1: 96 bpm Height: 6' Respiratory Rate: 22 bpm SpO2: 94% Tempera ture: 37.3 (C) / 99.1 (F) Weight: 221 lbs 05/02/2018 Blood Pressure 1: 146/78 Code: 8480-6 BMI: 29.6 Code: 55909-2 Heart Rate 1: 78 bpm Height: 6' Respiratory Rate: 26 bpm SpO2: 94% Tempera ture: 35.7 (C) / 96.2 (F) Weight: 218 lbs 04/29/2018 Blood Pressure 1: 142/62 Code: 8480-6 BMI: 28.6 Code: 51373-0 Heart Rate 1: 82 bpm Height: 6' Respiratory Rate: 22 bpm SpO2: 98% Tempera ture: 36.4 (C) / 97.6 (F) Weight: 211 lbs 04/22/2018 Blood Pressure 1: 126/64 Code: 8480-6 BMI: 30.0 Code: 54815-9 Heart Rate 1: 96 bpm Height: 6' [...] 1: 144/78 Code: 8480-6 BMI: 30.7 Code: 30494-4 Heart Rate 1: 92 bpm Height: 6' Respiratory Rate: 28 bpm SpO2: 94% Tempera ture: 36.9 (C) / 98.4 (F) Weight: 226 lbs 12/28/2017 Blood Pressure 1: 136/80 Code: 8480-6 Heart Rate 1: 92 bpm Respiratory Rate: 28 bpm SpO2: 94% Temperature: 36.7 (C) / 98.1 (F) 12/21/2017 Blood Pressure 1: 146/84 Code: 8480-6 BMI: 31.1 Code: 78157-8 Heart Rate 1: 84 bpm Height: 6' [...] 1: 142/64 Code: 8480-6 BMI: 31.3 Code: 22481-7 Heart Rate 1: 98 bpm Height: 6' Respiratory Rate: 24 bpm SpO2: 94% Tempera ture: 36.4 (C) / 97.6 (F) Weight: 231 lbs 10/17/2017 Blood Pressure 1: 140/68 Code: 8480-6 BMI: 31.7 Code: 36015-4 Heart Rate 1: 88 bpm Height: 6' Respiratory Rate: 20 bpm SpO2: 94% Tempera ture: 36.8 (C) / 98.3 (F) Weight: 234 lbs 08/02/2017 Blood Pressure 1: 142/80 Code: 8480-6 BMI: 31.1 Code: 59133-9 Heart Rate 1: 86 bpm Height: 6' Respiratory Rate: 20 bpm SpO2: 90% Tempera ture: 35.9 (C) / 96.7 (F) Weight: 229 lbs 07/02/2017 Blood Pressure 1: 146/64 Code: 8480-6 BMI: 29.6 Code: 02282-7 Heart Rate 1: 96 bpm Height: 6' Respiratory Rate: 20 bpm Temperature: 36 .4 (C) / 97.6 (F) Weight: 218 lbs 05/29/2017 Blood Pressure 1: 152/68 Code: 8480-6 BMI: 31.5 Code: 90607-2 Heart Rate 1: 100 bpm Height: 6' Respiratory Rate: 20 bpm SpO2: 92% Tempera ture: 36.9 (C) / 98.4 (F) Weight: 232 lbs 02/01/2017 Blood Pressure 1: 146/64 Code: 8480-6 BMI: 30.7 Code: 62436-0 Heart Rate 1: 76 bpm Height: 6' Respiratory Rate: 20 bpm SpO2: 95% Tempera ture: 36.8 (C) / 98.2 (F) Weight: 226 lbs 01/29/2017 Blood Pressure 1: 146/78 Code: 8480-6 Heart Rate 1: 84 bpm Respiratory Rate: 20 bpm SpO2: 96% Temperature: 36.1 (C) / 97.0 (F) We ight: 226 lbs 12/21/2016 Blood Pressure 1: 126/60 Code: 8480-6 BMI: 30.8 Code: 95635-2 Heart Rate 1: 88 bpm Height: 6' Respiratory Rate: 22 bpm SpO2: 94% Tempera ture: 36.7 (C) / 98.0 (F) Weight: 227 lbs 12/14/2016 Blood Pressure 1: 126/70 Code: 8480-6 BMI: 29.8 Code: 51415-8 Heart Rate 1: 92 bpm Height: 6' Respiratory Rate: 22 bpm SpO2: 93% Tempera ture: 36.8 (C) / 98.2 (F) Weight: 220 lbs 11/14/2016 Blood Pressure 1: 128/62 Code: 8480-6 Heart Rate 1: 100 bpm Respiratory Rate: 20 bpm SpO2: 96% Temperature: 36.6 (C) / 97.8 (F) We ight: 220 lbs 10/31/2016 Blood Pressure 1: 142/60 Code: 8480-6 BMI: 30.1 Code: 00821-3 Heart Rate 1: 112 bpm Height: 6' Respiratory Rate: 24 bpm SpO2: 93% Tempera ture: 37.1 (C) / 98.7 (F) Weight: 222 lbs 10/03/2016 Blood Pressure 1: 136/78 Code: 8480-6 Heart Rate 1: 106 bpm Respiratory Rate: 24 bpm SpO2: 93% Temperature: 36.6 (C) / 97.8 (F) We ight: 221 lbs 09/04/2016 Blood Pressure 1: 112/44 Code: 8480-6 BMI: 30.1 Code: 38213-9 Heart Rate 1: 90 bpm Height: 6' Respiratory Rate: 20 bpm SpO2: 93% Tempera ture: 36.6 (C) / 97.9 (F) Weight: 222 lbs 08/22/2016 Blood Pressure 1: 142/68 Code: 8480-6 BMI: 30.4 Code: 45376-5 Heart Rate 1: 100 bpm Height: 6' Respiratory Rate: 24 bpm SpO2: 93% Tempera ture: 36.7 (C) / 98.1 (F) Weight: 224 lbs 08/10/2016 Blood Pressure 1: 134/60 Code: 8480-6 BMI: 30.2 Code: 31475-4 Heart Rate 1: 76 bpm Height: 6' [...] 1: 122/72 Code: 8480-6 BMI: 30.7 Code: 81827-0 Heart Rate 1: 96 bpm Height: 6' Respiratory Rate: 22 bpm SpO2: 96% Tempera ture: 35.9 (C) / 96.7 (F) Weight: 226 lbs 04/03/2016 Blood Pressure 1: 146/64 Code: 8480-6 BMI: 30.8 Code: 37548-7 Heart Rate 1: 76 bpm Height: 6' Respiratory Rate: 20 bpm Temperature: 36 .8 (C) / 98.2 (F) Weight: 227 lbs 03/02/2016 Blood Pressure 1: 148/60 Code: 8480-6 BMI: 31.1 Code: 47375-4 Heart Rate 1: 80 bpm Height: 6' Respiratory Rate: 22 bpm SpO2: 94% Tempera ture: 36.6 (C) / 97.8 (F) Weight: 229 lbs 02/17/2016 Blood Pressure 1: 132/60 Code: 8480-6 BMI: 31.3 Code: 21861-7 Heart Rate 1: 80 bpm Height: 6' Respiratory Rate: 20 bpm Temperature: 36 .9 (C) / 98.4 (F) Weight: 231 lbs 02/14/2016 Blood Pressure 1: 126/70 Code: 8480-6 BMI: 31.3 Code: 45187-7 Heart Rate 1: 80 bpm Height: 6' Respiratory Rate: 24 bpm SpO2: 95% Tempera ture: 36.9 (C) / 98.5 (F) Weight: 231 lbs 01/31/2016 Blood Pressure 1: 136/60 Code: 8480-6 Heart Rate 1: 76 bpm Respiratory Rate: 22 bpm Temperature: 37.0 (C) / 98.6 (F) Weight: 230 lbs 12/30/2015 Blood Pressure 1: 128/58 Code: 8480-6 BMI: 31.2 Code: 20701-9 Heart Rate 1: 80 bpm Height: 6' Respiratory Rate: 20 bpm Temperature: 36 .8 (C) / 98.2 (F) Weight: 230 lbs 12/16/2015 Blood Pressure 1: 122/60 Code: 8480-6 BMI: 32.0 Code: 27383-9 Heart Rate 1: 84 bpm Height: 6' Respiratory Rate: 24 bpm Temperature: 37 .1 (C) / 98.7 (F) Weight: 236 lbs 12/06/2015 Blood Pressure 1: 162/74 Code: 8480-6 BMI: 32.5 Code: 21433-9 Heart Rate 1: 90 bpm Height: 6' Respiratory Rate: 20 bpm SpO2: 96% Tempera ture: 36.4 (C) / 97.6 (F) Weight: 240 lbs 11/15/2015 Blood Pressure 1: 166/80 Code: 8480-6 BMI: 32.4 Code: 74051-1 Heart Rate 1: 92 bpm Height: 6' Respiratory Rate: 28 bpm Temperature: 36 .5 (C) / 97.7 (F) Weight: 239 lbs 10/05/2015 Blood Pressure 1: 146/76 Code: 8480-6 BMI: 32.4 Code: 78165-5 Heart Rate 1: 88 bpm Height: 6' Respiratory Rate: 28 bpm Temperature: 37 .1 (C) / 98.7 (F) Weight: 239 lbs 07/22/2015 Blood Pressure 1: 144/68 Code: 8480-6 BMI: 31.9 Code: 07593-6 Heart Rate 1: 88 bpm Height: 6' [...] 1: 142/64 Code: 8480-6 BMI: 32.1 Code: 87715-0 Heart Rate 1: 80 bpm Height: 6' Respiratory Rate: 18 bpm Temperature: 36 .4 (C) / 97.6 (F) Weight: 237 lbs 06/07/2015 Blood Pressure 1: 164/58 Code: 8480-6 BMI: 32.1 Code: 26103-1 Heart Rate 1: 88 bpm Height: 6' Respiratory Rate: 20 bpm Temperature: 36 .6 (C) / 97.9 (F) Weight: 237 lbs 06/03/2015 Blood Pressure 1: 152/64 Code: 8480-6 BMI: 32.1 Code: 85364-6 Heart Rate 1: 96 bpm Height: 6' Respiratory Rate: 20 bpm Temperature: 37 .4 (C) / 99.3 (F) Weight: 237 lbs 06/01/2015 Blood Pressure 1: 136/70 Code: 8480-6 BMI: 31.7 Code: 16070-7 Heart Rate 1: 72 bpm Height: 6' Respiratory Rate: 22 bpm SpO2: 94% Tempera ture: 36.6 (C) / 97.9 (F) Weight: 234 lbs 02/25/2015 Blood Pressure 1: 146/80 Code: 8480-6 BMI: 32.4 Code: 45207-0 Heart Rate 1: 84 bpm Height: 6' Respiratory Rate: 28 bpm Temperature: 36 .7 (C) / 98.0 (F) Weight: 239 lbs 10/27/2014 Blood Pressure 1: 168/70 Code: 8480-6 BMI: 32.0 Code: 58881-1 Heart Rate 1: 80 bpm Height: 6' Respiratory Rate: 30 bpm SpO2: 98% Tempera ture: 36.4 (C) / 97.6 (F) Weight: 236 lbs 10/21/2014 Blood Pressure 1: 152/58 Code: 8480-6 BMI: 32.1 Code: 01013-1 Heart Rate 1: 78 bpm Height: 6' Respiratory Rate: 20 bpm Temperature: 37 .8 (C) / 100.1 (F) Weight: 237 lbs 10/06/2014 Blood Pressure 1: 132/64 Code: 8480-6 BMI: 32.5 Code: 45846-7 Heart Rate 1: 88 bpm Height: 6' Respiratory Rate: 32 bpm SpO2: 94% Tempera ture: 36.8 (C) / 98.2 (F) Weight: 240 lbs 09/21/2014 Blood Pressure 1: 134/68 Code: 8480-6 BMI: 32.4 Code: 61838-1 Heart Rate 1: 96 bpm Height: 6' Respiratory Rate: 30 bpm Temperature: 36 .7 (C) / 98.1 (F) Weight: 239 lbs 09/08/2014 Blood Pressure 1: 128/74 Code: 8480-6 BMI: 32.4 Code: 28596-3 Heart Rate 1: 82 bpm Height: 6' Respiratory Rate: 28 bpm SpO2: 93% Tempera ture: 36.6 (C) / 97.8 (F) Weight: 239 lbs 09/02/2014 Blood Pressure 1: 164/78 Code: 8480-6 Heart Rate 1: 86 bpm Respiratory Rate: 22 bpm SpO2: 96% Temperature: 36.1 (C) / 97.0 (F) We ight: 239 lbs 08/10/2014 Blood Pressure 1: 152/60 Code: 8480-6 BMI: 32.8 Code: 24434-4 Heart Rate 1: 80 bpm Height: 6' [...] 1: 146/80 Code: 8480-6 BMI: 33.9 Code: 30167-9 Heart Rate 1: 80 bpm Height: 6' [...] 1: 148/78 Code: 8480-6 BMI: 30.5 Code: 83726-1 Heart Rate 1: 84 bpm Height: 6' Respiratory Rate: 28 bpm SpO2: 97% Tempera ture: 36.4 (C) / 97.5 (F) Weight: 225 lbs 08/06/2013 Blood Pressure 1: 158/70 Code: 8480-6 Heart Rate 1: 110 bpm Respiratory Rate: 22 bpm SpO2: 88% Temperature: 39.7 (C) / 103.4 (F) W eight: 07/16/2013 Blood Pressure 1: 148/82 Code: 8480-6 BMI: 31.9 Code: 98552-1 Heart Rate 1: 80 bpm Height: 6' Respiratory Rate: 20 bpm Temperature: 36 .6 (C) / 97.9 (F) Weight: 235 lbs 04/09/2013 Blood Pressure 1: 142/78 Code: 8480-6 BMI: 31.5 Code: 96146-0 Heart Rate 1: 88 bpm Height: 6' Respiratory Rate: 32 bpm SpO2: 95% Tempera ture: 37.0 (C) / 98.6 (F) Weight: 232 lbs 02/11/2013 Blood Pressure 1: 146/70 Code: 8480-6 Heart Rate 1: 88 bpm Respiratory Rate: 20 bpm Temperature: 36.8 (C) / 98.3 (F) Weight: 230 lbs 01/31/2013 Blood Pressure 1: 128/70 Code: 8480-6 BMI: 31.6 Code: 65160-9 Heart Rate 1: 84 bpm Height: 6' Respiratory Rate: 24 bpm SpO2: 92% Tempera ture: 36.7 (C) / 98.0 (F) Weight: 233 lbs 01/20/2013 Blood Pressure 1: 148/64 Code: 8480-6 BMI: 31.6 Code: 54819-4 Heart Rate 1: 68 bpm Height: 6' Temperature: 36.1 (C) / 97.0 (F) Weight: 233 lbs 12/19/2012 Blood Pressure 1: 128/68 Code: 8480-6 BMI: 32.0 Code: 23852-3 Heart Rate 1: 64 bpm Height: 6' Temperature: 36.7 (C) / 98.0 (F) Weight: 236 lbs 10/21/2012 Blood Pressure 1: 142/64 Code: 8480-6 BMI: 30.9 Code: 12799-7 Heart Rate 1: 74 bpm Height: 6' Temperature: 36.2 (C) / 97.1 (F) Weight: 228 lbs 09/18/2012 Blood Pressure 1: 126/60 Code: 8480-6 BMI: 31.3 Code: 93578-7 Heart Rate 1: 88 bpm Height: 6' Respiratory Rate: 20 bpm Temperature: 36 .5 (C) / 97.7 (F) Weight: 231 lbs 08/28/2012 Blood Pressure 1: 132/68 Code: 8480-6 BMI: 31.5 Code: 48268-6 Heart Rate 1: 92 bpm Height: 6' Respiratory Rate: 30 bpm SpO2: 94% Tempera ture: 37.1 (C) / 98.7 (F) Weight: 232 lbs 07/10/2012 Blood Pressure 1: 118/70 Code: 8480-6 BMI: 30.5 Code: 96202-8 Heart Rate 1: 72 bpm Height: 6' Respiratory Rate: 24 bpm SpO2: 96% Tempera ture: 36.7 (C) / 98.0 (F) Weight: 225 lbs 05/09/2012 Blood Pressure 1: 124/68 Code: 8480-6 BMI: 29.8 Code: 13001-5 Heart Rate 1: 72 bpm Height: 6' Respiratory Rate: 20 bpm Temperature: 36 .8 (C) / 98.2 (F) Weight: 220 lbs 10/02/2011 Blood Pressure 1: 140/82 Code: 8480-6 BMI: 30.7 Code: 45931-9 Heart Rate 1: 68 bpm Height: 6' Temperature: 36.7 (C) / 98.0 (F) Weight: 226 lbs 08/07/2011 Blood Pressure 1: 122/68 Code: 8480-6 BMI: 30.5 Code: 16355-8 Heart Rate 1: 72 bpm Height: 6' [...] 1: 140/78 Code: 8480-6 BMI: 31.9 Code: 68366-2 Heart Rate 1: 84 bpm Height: 6' Temperature: 36.6 (C) / 97.8 (F) Weight: 235 lbs 12/22/2009 Blood Pressure 1: 140/74 Code: 8480-6 BMI: 31.9 Code: 04251-4 Heart Rate 1: 94 bpm Height: 6' SpO2: 92% Temperature: 35.7 (C) / 96.2 (F) Weight: 235 lbs 12/13/2009 Blood Pressure 1: 146/80 Code: 8480-6 BMI: 33.0 Code: 85685-1 Heart Rate 1: 86 bpm Height: 6' [...] shot follow up 05/08/2019 follow up 04/07/2019 [facility] dizziness 03/24/2019 dizziness 03/21/2019 sore throat 03/13/2019 Patient finished zit hromax last night and has one dose of prednisone left follow up 03/10/2019 ER [facility]---patient cu rrently taking zithromax, prednisone and breathing treatments every two hours spasms/spasticity 02/26/2019 follow up 02/13/2019 follow up 01/14/2019 [facility] follow up 12/25/2018 cough 12/09/2018 here for [...] reports he was 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 follow up 05/29/2017 Discuss Low Back [...] nightly. Patient has just been discharged from [place] with Pneumonia. Currently on Levaquin once daily. [...] fwup follow up 03/13/2016 [facility] low on medication education for insulin [...] Basal cell carcinoma, face[ICD10: C44.310] Lita CRAWFORD [employer] CPT-4: 03297 11/12/2019 ([id number]) OFFICE/OUTPATIENT VISIT EST Diagnosis: Chronic obstructive pulmonary disease, unspecified[ICD10: J44.9] Diagnosis: Right thyroid nodule[ICD10: E04.1] Lita GONZALES [employer] CPT-4: 71745 09/11/2019 ([id number]) OFFICE/OUTPATIENT VISIT EST Diagnosis: Chronic bronchitis[ICD10: J42] 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 CPT-4: 22707 07/01/2019 ([id number]) OFFICE/OUTPATIENT VISIT EST Diagnosis: Epigastric pain[ICD10: R10.13] Diagnosis: Nausea[ICD10: R11.0] Diagnosis: Weight loss[ICD10: R63.4] Lita AREVALO DO [facility] CPT-4: 72280 06/24/2019 ([id number]) OFFICE/OUTPATIENT VISIT EST Diagnosis: Chronic obstructive pulmonary disease, unspecified[ICD10: J44.9] Diagnosis: Chronic insomnia[ICD10: F51.04] Diagnosis: Anemia[ICD10: D64.9] Diagnosis: Diplopia[ICD10: H53.2] Diagnosis: [place][ICD10: F30.9] Lita BARAKAT DO [facility] CPT-4: 20907 06/17/2019 ([id number]) NURSE/OUTPATIENT VISIT EST Diagnosis: Vitamin B12 deficiency anemia, unspecified[ICD10: D51.9] Lita BARAKAT DO [facility] CPT-4: 57243 06/10/2019 ([id number]) NURSE/OUTPATIENT VISIT EST Diagnosis: Vitamin B12 deficiency anemia, unspecified[ICD10: D51.9] Lita BARAKAT DO [facility] CPT-4: 61755 06/02/2019 ([id number]) NURSE/OUTPATIENT VISIT EST Diagnosis: Vitamin B12 deficiency anemia, unspecified[ICD10: D51.9] Lita BARAKAT DO [facility] CPT-4: 01930 05/27/2019 ([id number]) NURSE/OUTPATIENT VISIT EST Diagnosis: Vitamin B12 deficiency anemia, unspecified[ICD10: D51.9] Lita BARAKAT DO [facility] CPT-4: 82397 05/12/2019 ([id number]) OFFICE/OUTPATIENT VISIT EST Diagnosis: Restless legs syndrome[ICD10: G25.81] Diagnosis: Primary insomnia[ICD10: F51.01] Diagnosis: Anemia, unspecified[ICD10: D64.9] Diagnosis: Type 2 diabetes mellitus with hyperglycemia[ICD10: E11.65] Diagnosis: Vitamin D deficiency, unspecified[ICD10: E55.9] Lita BARAKAT DO [facility] CPT-4: 71722 05/08/2019 ([id number]) OFFICE/OUTPATIENT VISIT EST Diagnosis: Pain in right knee[ICD10: M25.561] Diagnosis: Restless legs syndrome[ICD10: G25.81] Diagnosis: Insomnia, unspecified[ICD10: G47.00] Lita BARAKAT DO [facility] CPT-4: 03569 04/07/2019 ([id number]) NO CHARGE Diagnosis: Chronic obstructive pulmonary disease with (acute) exacerbation[ICD10: J44.1] Diagnosis: Dizziness and giddiness[ICD10: R42] Diagnosis: Generalized anxiety disorder[ICD10: F41.1] Autumn BARAKAT DO [facility] CPT-4: 51543 03/24/2019 ([id number]) OFFICE/OUTPATIENT VISIT EST Diagnosis: Chronic obstructive pulmonary disease with (acute) exacerbation[ICD10: J44.1] Diagnosis: Dizziness and giddiness[ICD10: R42] Autumn BARAKAT [employer] [facility] CPT-4: 54773 03/21/2019 ([id number]) OFFICE/OUTPATIENT VISIT EST Diagnosis: Candidal stomatitis[ICD10: B37.0] Lita BARAKAT [employer] [facility] CPT-4: 63892 03/13/2019 ([id number]) OFFICE/OUTPATIENT VISIT EST Diagnosis: Chronic obstructive pulmonary disease with acute lower respiratory infection[ICD10: J44.0] Diagnosis: Restless legs syndrome[ICD10: G25.81] Lita BARAKAT [employer] [facility] CPT-4: 69963 03/10/2019 ([id number]) OFFICE/OUTPATIENT VISIT EST Diagnosis: Restless legs syndrome[ICD10: G25.81] Lita BARAKAT DO [facility] CPT-4: 52958 02/26/2019 ([id number]) OFFICE/OUTPATIENT VISIT EST Diagnosis: Primary insomnia[ICD10: F51.01] Diagnosis: Chronic obstructive pulmonary disease, unspecified[ICD10: J44.9] Lita BARAKAT DO [facility] CPT-4: 48064 02/13/2019 ([id number]) OFFICE/OUTPATIENT VISIT EST Diagnosis: Chronic obstructive pulmonary disease, unspecified[ICD10: J44.9] Diagnosis: Chronic respiratory failure with hypoxia[ICD10: J96.11] Diagnosis: Chronic respiratory failure with hypercapnia[ICD10: J96.12] Lita BARAKAT DO [facility] CPT-4: 51553 01/14/2019 ([id number]) OFFICE/OUTPATIENT VISIT EST Diagnosis: Chronic respiratory failure with hypoxia[ICD10: J96.11] Diagnosis: Patient's noncompliance with other medical treatment and regimen[ICD10: Z91.19] Diagnosis: Chronic obstructive pulmonary disease with (acute) exacerbation[ICD10: J44.1] Lita BARAKAT [employer] [facility] CPT- 4: 25159 12/25/2018 ([id number]) OFFICE/OUTPATIENT VISIT EST Diagnosis: Essential (primary) hypertension[ICD10: I10] Diagnosis: Type 2 diabetes mellitus with hyperglycemia[ICD10: E11.65] Diagnosis: Hypothyroidism, unspecified[ICD10: E03.9] Diagnosis: Hyperlipidemia, unspecified[ICD10: E78.5] Diagnosis: Acute recurrent maxillary sinusitis[ICD10: J01.01] Ines Banerjee LITA BARAKAT [employer] [facility] CPT-4: 02544 12/09/2018 ([id number]) OFFICE/OUTPATIENT VISIT EST Diagnosis: Candidal stomatitis[ICD10: B37.0] Lita ALYOSCAR Segura Ashley BARAKAT [employer] [facility] CPT-4: 81581 12/05/2018 ([id number]) OFFICE/OUTPATIENT VISIT EST Diagnosis: Acute recurrent sinusitis, unspecified[ICD10: J01.91] Diagnosis: Pain in right knee[ICD10: M25.561] Lita Barakat KEVIN GONZALES Ashley BARAKAT [employer] [facility] CPT-4: 87681 10/23/2018 ([id number]) OFFICE/OUTPATIENT VISIT EST Diagnosis: Restless legs syndrome[ICD10: G25.81] Diagnosis: Basal cell carcinoma of skin of scalp and neck[ICD10: C44.41] Lita BARAKAT DO [facility] CPT-4: 70377 08/21/2018 ([id number]) OFFICE/OUTPATIENT VISIT EST Diagnosis: Chronic obstructive pulmonary disease with acute lower respiratory infection[ICD10: J44.0] Diagnosis: Restless legs syndrome[ICD10: G25.81] Lita BARAKAT DO [facility] CPT-4: 65679 08/07/2018 ([id number]) OFFICE/OUTPATIENT VISIT EST Diagnosis: Chronic obstructive pulmonary disease with acute lower respiratory infection[ICD10: J44.0] Lita BARAKAT DO [facility] CPT-4: 78672 05/23/2018 ([id number]) OFFICE/OUTPATIENT VISIT EST Diagnosis: Candidal stomatitis[ICD10: B37.0] Lita BARAKAT DO [facility] CPT-4: 34551 05/02/2018 ([id number]) OFFICE/OUTPATIENT VISIT EST Diagnosis: Candidal stomatitis[ICD10: B37.0] Diagnosis: Other retention of urine[ICD10: R33.8] Diagnosis: Chronic obstructive pulmonary disease with acute lower respiratory infection[ICD10: J44.0] Autumn BARAKAT DO [facility] CPT-4: 16207 04/29/2018 ([id number]) OFFICE/OUTPATIENT VISIT EST Diagnosis: Chronic obstructive pulmonary disease with acute lower respiratory infection[ICD10: J44.0] Lita BARAKAT DO [facility] CPT-4: 68669 04/22/2018 ([id number]) OFFICE/OUTPATIENT VISIT EST Diagnosis: Unilateral primary osteoarthritis, right knee[ICD10: M17.11] Diagnosis: Squamous cell carcinoma of skin, unspecified[ICD10: C44.92] Lita BARAKAT DO [facility] CPT-4: 79880 01/28/2018 ([id number]) OFFICE/OUTPATIENT VISIT EST Diagnosis: Pain in right knee[ICD10: M25.561] Diagnosis: 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] Lita BARAKAT DO [facility] CPT-4: 05667 01/23/2018 ([id number]) OFFICE/OUTPATIENT VISIT EST Diagnosis: Urinary tract infection, site not specified[ICD10: N39.0] Diagnosis: Chronic obstructive pulmonary disease with acute lower respiratory infection[ICD10: J44.0] Lita BARAKAT DO [facility] CPT-4: 91098 01/02/2018 ([id number]) OFFICE/OUTPATIENT VISIT EST Diagnosis: Chronic obstructive pulmonary disease with (acute) exacerbation[ICD10: J44.1] Autumn BARAKAT DO [facility] CPT- 4: 39114 12/28/2017 ([id number]) OFFICE/OUTPATIENT VISIT EST Diagnosis: Acute bronchitis, unspecified[ICD10: J20.9] Autumn BARAKAT DO [facility] CPT-4: 98090 12/21/2017 ([id number]) OFFICE/OUTPATIENT VISIT EST Diagnosis: Chronic obstructive pulmonary disease with acute lower respiratory infection[ICD10: J44.0] Diagnosis: Pain in right knee[ICD10: M25.561] Autumn BARAKAT DO [facility] CPT-4: 97781 12/17/2017 ([id number]) OFFICE/OUTPATIENT VISIT EST Diagnosis: Laceration without foreign body of right hand, sequela[ICD10: S61.411S] Diagnosis: Restless legs syndrome[ICD10: G25.81] Lita BARAKAT DO [facility] CPT-4: 14969 10/17/2017 OFFICE/OUTPATIENT VISIT EST Diagnosis: Chronic obstructive pulmonary disease with acute lower respiratory infection[ICD10: J44.0] Autumn BARAKAT DO [facility] CPT-4: 54561 08/02/2017 ([id number]) OFFICE/OUTPATIENT VISIT EST Diagnosis: PNEUMOCOCCAL VACCINE[ICD10: Z23] Lita BARAKAT DO [facility] CPT-4: 64572 07/24/2017 OFFICE/OUTPATIENT VISIT EST Diagnosis: Chronic obstructive pulmonary disease with (acute) exacerbation[ICD10: J44.1] Autumn BARAKAT DO [facility] CPT- 4: 40273 07/02/2017 OFFICE/OUTPATIENT VISIT EST Diagnosis: Low back pain[ICD10: M54.5] Ruchi GHOTRA [facility] CPT-4: 19098 05/29/2017 ([id number]) OFFICE/OUTPATIENT VISIT EST Diagnosis: Essential (primary) hypertension[ICD10: I10] Diagnosis: Hypothyroidism, unspecified[ICD10: E03.9] Diagnosis: Dizziness and giddiness[ICD10: R42] Diagnosis: Other abnormality of red blood cells[ICD10: R71.8] Diagnosis: Contracture of muscle, unspecified site[ICD10: M62.40] Lita ALYLINE Ashley BARAKAT [facility] CPT-4: 85767 04/17/2017 OFFICE/OUTPATIENT VISIT EST Diagnosis: Pain in left shoulder[ICD10: M25.512] Ruchi AGNE DonovanFerdinand GASPER [facility] CPT-4: 05668 01/29/2017 ([id number]) OFFICE/OUTPATIENT VISIT EST Diagnosis: Anemia, unspecified[ICD10: D64.9] Lita ALYOSCAR Segura DonovanFerdinand GASPER [facility] CPT-4: 74771 12/27/2016 ([id number]) OFFICE/OUTPATIENT VISIT EST Diagnosis: Other fatigue[ICD10: R53.83] Diagnosis: Other iron deficiency anemias[ICD10: D50.8] Lita ALYLINE DonovanFerdinand GASPER [facility] CPT-4: 56189 12/21/2016 ([id number]) OFFICE/OUTPATIENT VISIT EST Diagnosis: Anemia, unspecified[ICD10: D64.9] Diagnosis: Other fatigue[ICD10: R53.83] Diagnosis: Restless legs syndrome[ICD10: G25.81] Lita AGNE DonovanFerdinand [facility] CPT-4: 57724 12/14/2016 ([id number]) OFFICE/OUTPATIENT VISIT EST Diagnosis: Anemia, unspecified[ICD10: D64.9] Diagnosis: Other abnormality of red blood cells[ICD10: R71.8] Lita Barakat LITA DonovanFerdinand GASPER [facility] CPT-4: 41053 12/12/2016 ([id number]) OFFICE/OUTPATIENT VISIT EST Diagnosis: Pneumonia, unspecified organism[ICD10: J18.9] Diagnosis: Restless legs syndrome[ICD10: G25.81] Magda HERRMANNONIEL MARC Ashley BARAKAT [facility] CPT-4: 75545 11/14/2016 ([id number]) OFFICE/OUTPATIENT VISIT EST Diagnosis: Candidal stomatitis[ICD10: B37.0] Lita GOODE Daja Ashley BARAKAT [facility] CPT-4: 27073 10/31/2016 ([id number]) OFFICE/OUTPATIENT VISIT EST Diagnosis: Acute upper respiratory infection, unspecified[ICD10: J06.9] Diagnosis: Personal history of pneumonia (recurrent)[ICD10: Z87.01] Magda ALYLINE Ashley BARAKAT [facility] CPT-4: 73012 10/03/2016 ([id number]) OFFICE/OUTPATIENT VISIT EST Diagnosis: Restless legs syndrome[ICD10: G25.81] Diagnosis: Insomnia, unspecified[ICD10: G47.00] Magda Toth JERMAIN JESSICA Ashley BARAKAT [facility] CPT-4: 02378 09/04/2016 ([id number]) OFFICE/OUTPATIENT VISIT EST Diagnosis: Restless legs syndrome[ICD10: G25.81] Diagnosis: Primary insomnia[ICD10: F51.01] Lita ALYLINE Ashley BARAKAT [facility] CPT-4: 41593 08/10/2016 OFFICE/OUTPATIENT VISIT EST Diagnosis: Toxic gastroenteritis and colitis[ICD10: K52.1] Diagnosis: Dizziness and giddiness[ICD10: R42] Diagnosis: Headache[ICD10: R51] Diagnosis: Restless legs syndrome[ICD10: G25.81] Lita Gasper ALIZEONIEL AGNE Ashley BARAKAT [facility] CPT-4: 46821 07/06/2016 ([id number]) OFFICE/OUTPATIENT VISIT EST Diagnosis: Chest pain, unspecified[ICD10: R07.9] Diagnosis: Dyspnea, unspecified[ICD10: R06.00] Magda Toth ELLIS CONDE Ashley BARAKAT [facility] CPT-4: 09935 06/22/2016 ([id number]) OFFICE/OUTPATIENT VISIT EST 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] Diagnosis: PNEUMOCOCCAL VACCINE[ICD10: Z23] Diagnosis: FLU VACCINE[ICD10: Z23] Lita CRAWFORD Ashley [facility] CPT-4: 13623 06/13/2016 ([id number]) OFFICE/OUTPATIENT VISIT EST Diagnosis: Chest pain, unspecified[ICD10: R07.9] Diagnosis: Other forms of dyspnea[ICD10: R06.09] Diagnosis: Shortness of breath[ICD10: R06.02] Diagnosis: Other fatigue[ICD10: R53.83] Magda ALYLINE Ashley [facility] CPT-4: 04954 06/01/2016 ([id number]) OFFICE/OUTPATIENT VISIT EST Diagnosis: Unspecified hearing loss, left ear[ICD10: H91.92] Diagnosis: Other specified disorders of Eustachian tube, left ear[ICD10: H69.82] Magda ALYLINE DonovanFerdinand [facility] CPT-4: 38172 11/2015 ([id number]) OFFICE/OUTPATIENT VISIT EST Diagnosis: Impacted cerumen, bilateral[ICD10: H61.23] Diagnosis: DM W/O COMPLICATION TYPE I, 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: E10.9] Diagnosis: Generalized anxiety disorder[ICD10: F41.1] Lita CRAWFORD DonovanFerdinand [facility] CPT-4: 04039 04/03/2016 ([id number]) OFFICE/OUTPATIENT VISIT EST Diagnosis: 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 CPT-4: 52418 03/06/2016 ([id number]) OFFICE/OUTPATIENT VISIT EST Diagnosis: Type 2 diabetes mellitus with hyperglycemia[ICD10: E11.65] Diagnosis: Hyperlipidemia, unspecified[ICD10: E78.5] Diagnosis: Chronic obstructive pulmonary disease, unspecified[ICD10: J44.9] Diagnosis: Male erectile dysfunction, unspecified[ICD10: N52.9] Lita BARAKAT DO [facility] CPT-4: 70433 03/02/2016 ([id number]) OFFICE/OUTPATIENT VISIT EST Diagnosis: Pain in right foot[ICD10: M79.671] Magda Toth JERMAINDARLING JANET BARAKAT DO [facility] CPT-4: 65662 02/14/2016 OFFICE/OUTPATIENT VISIT EST Diagnosis: Generalized anxiety disorder[ICD10: F41.1] Lita BARAKAT DO [facility] CPT-4: 76933 01/31/2016 ([id number]) OFFICE/OUTPATIENT VISIT EST Diagnosis: Generalized anxiety disorder[ICD10: F41.1] Lita BARAKAT DO [facility] CPT-4: 52162 12/30/2015 ([id number]) OFFICE/OUTPATIENT VISIT EST Diagnosis: Localized swelling, mass and lump, neck[ICD10: R22.1] Lita BARAKAT DO [facility] CPT-4: 79084 12/16/2015 OFFICE/OUTPATIENT VISIT EST Diagnosis: Localized enlarged lymph nodes[ICD10: R59.0] Diagnosis: Otalgia, left ear[ICD10: H92.02] Stephanie BARAKAT DO [facility] CPT-4: 44286 12/06/2015 OFFICE/OUTPATIENT VISIT EST Diagnosis: Localized enlarged lymph nodes[ICD10: R59.0] Diagnosis: Squamous cell carcinoma of skin, unspecified[ICD10: C44.92] Diagnosis: Actinic keratosis[ICD10: L57.0] Stephanie BARAKAT DO [facility] CPT-4: 29248 11/15/2015 OFFICE/OUTPATIENT VISIT EST Diagnosis: Cellulitis of left lower limb[ICD10: L03.116] Diagnosis: Encounter for examination and observation for other specified reasons[ICD10: Z04.8] Diagnosis: Chronic obstructive pulmonary disease, unspecified[ICD10: J44.9] Stephanie BARAKAT DO [facility] CPT-4: 63244 07/22/2015 OFFICE/OUTPATIENT VISIT EST Diagnosis: Other specified joint disorders, left knee[ICD10: M25.862] Diagnosis: Cellulitis of left lower limb[ICD10: L03.116] Diagnosis: Other fatigue[ICD10: R53.83] Diagnosis: Hyperlipidemia, unspecified[ICD10: E78.5] Stephanie BARAKAT DO [facility] CPT-4: 92336 07/01/2015 OFFICE/OUTPATIENT VISIT EST Diagnosis: Pain in left knee[ICD10: M25.562] Diagnosis: Cellulitis of left lower limb[ICD10: L03.116] Diagnosis: Other specified joint disorders, left knee[ICD10: M25.862] Stephanie ManFerdinand [facility] CPT-4: 59299 06/28/2015 OFFICE/OUTPATIENT VISIT EST Diagnosis: PREPATELLAR BURSITIS[ICD9: 726.65] Diagnosis: Cellulitis of knee, left[ICD9: 682.6] Stephanie EspinozaAshleyisabella ManFerdinand GASPER [facility] CPT-4: 98953 06/09/2015 ([id number]) OFFICE/OUTPATIENT VISIT EST Diagnosis: PREPATELLAR BURSITIS[ICD9: 726.65] Diagnosis: Cellulitis of knee, left[ICD9: 682.6] Lita Gasper ALIZEONIEL AGNE DonovanFerdinand GASPER [facility] CPT-4: 85956 06/07/2015 OFFICE/OUTPATIENT VISIT EST Diagnosis: Cellulitis of knee, left[ICD9: 682.6] Stephanie EspinozaAshleyisabella ManFerdinand [facility] CPT-4: 61837 06/03/2015 ([id number]) OFFICE/OUTPATIENT VISIT EST Diagnosis: DM W/O COMPLICATION TYPE II, UNCONTROLLED[ICD9: 250.02] Diagnosis: COPD[ICD9: 496] Lita Jasminbetty LITA DonovanFerdinand GASPER [facility] CPT- 4: 63977 06/01/2015 ([id number]) OFFICE/OUTPATIENT VISIT EST Diagnosis: COPD[ICD9: 496] Diagnosis: DYSPNEA[ICD9: 786.09] Diagnosis: DM W/O COMPLICATION TYPE II, UNCONTROLLED[ICD9: 250.02] Diagnosis: Actinic keratosis[ICD9: 702.0] Lita BARAKAT DO [facility] CPT-4: 52569 02/25/2015 ([id number]) OFFICE/OUTPATIENT VISIT EST Diagnosis: ASTHMA NOS[ICD9: 493.90] Diagnosis: COPD[ICD9: 496] Diagnosis: DM W/O COMPLICATION TYPE II, UNCONTROLLED[ICD9: 250.02] Lita BARAKAT DO [facility] CPT-4: 96098 10/27/2014 OFFICE/OUTPATIENT VISIT EST Diagnosis: DYSPNEA[ICD9: 786.09] Diagnosis: COPD[ICD9: 496] Lita BARAKAT DO [facility] CPT- 4: 41409 10/06/2014 ([id number]) OFFICE/OUTPATIENT VISIT EST Diagnosis: PNEUMONIA, ORGANISM[ICD9: 486] Diagnosis: COPD[ICD9: 496] Diagnosis: DYSPNEA[ICD9: 786.09] Lita BARAKAT [employer] [facility] CPT-4: 47056 09/21/2014 OFFICE/OUTPATIENT VISIT EST Diagnosis: PNEUMONIA, ORGANISM[ICD9: 486] Diagnosis: DYSPNEA[ICD9: 786.09] Diagnosis: COUGH[ICD9: 786.2] Stephanie BARAKAT [employer] [facility] CPT-4: 30797 09/08/2014 OFFICE/OUTPATIENT VISIT EST Diagnosis: COPD with exacerbation[ICD9: 491.21] Diagnosis: COUGH[ICD9: 786.2] Diagnosis: DYSPNEA[ICD9: 786.09] Stephanie BARAKAT [employer] [facility] CPT-4: 26292 09/02/2014 ([id number]) OFFICE/OUTPATIENT VISIT EST Diagnosis: DM W/O COMPLICATION TYPE II, UNCONTROLLED[ICD9: 250.02] Lita BARAKAT [employer] [facility] CPT-4: 96617 08/27/2014 ([id number]) OFFICE/OUTPATIENT VISIT EST Diagnosis: DM W/O COMPLICATION TYPE II, UNCONTROLLED[ICD9: 250.02] Diagnosis: HYPERLIPIDEMIA NEC/NOS[ICD9: 272.4] Diagnosis: HYPERTENSION[ICD9: 401.9] Diagnosis: COPD[ICD9: 496] Diagnosis: FLU VACCINE[ICD10: Z23] Lita PABLO [facility] CPT-4: 90227 08/05/2014 ([id number]) OFFICE/OUTPATIENT VISIT EST Diagnosis: COPD[ICD9: 496] Diagnosis: Lumbar degenerative disc disease[ICD9: 722.52] Lita BARAKAT [facility] CPT-4: 15080 05/05/2014 OFFICE/OUTPATIENT VISIT EST Diagnosis: DYSPNEA[ICD9: 786.09] Diagnosis: COPD[ICD9: 496] Lita [facility] CPT- 4: 38401 03/24/2014 ([id number]) OFFICE/OUTPATIENT VISIT EST Diagnosis: COPD[ICD9: 496] Diagnosis: DYSPNEA[ICD9: 786.09] Lita [facility] CPT-4: 24004 03/10/2014 OFFICE/OUTPATIENT VISIT EST Diagnosis: Subacromial bursitis[ICD9: 726.19] Diagnosis: Chronic low back pain[ICD9: 724.2] Diagnosis: Lumbar degenerative disc disease[ICD9: 722.52] Lita [facility] CPT-4: 57724 12/16/2013 ([id number]) OFFICE/OUTPATIENT VISIT EST Diagnosis: PHARYNGITIS, ACUTE[ICD9: 462] Diagnosis: COPD[ICD9: 496] Lita BARAKAT [facility] CPT- 4: 77161 10/09/2013 OFFICE/OUTPATIENT VISIT EST Diagnosis: COPD[ICD9: 496] Diagnosis: Acute exacerbation of chronic obstructive pulmonary disease (COPD)[ICD9: 491.21] Ruchi Buchanan LITA [facility] CPT-4: 54761 09/18/2013 ([id number]) OFFICE/OUTPATIENT VISIT EST Diagnosis: PNEUMONIA, ORGANISM[ICD9: 486] Diagnosis: DM W/O COMPLICATION TYPE II[ICD9: 250.00] Lita Ramirez [facility]: 54371 08/13/2013 ([id number]) OFFICE/OUTPATIENT VISIT EST Diagnosis: DM W/O COMPLICATION TYPE II, UNCONTROLLED[ICD9: 250.02] Diagnosis: HYPERLIPIDEMIA NEC/NOS[ICD9: 272.4] Diagnosis: HYPERTENSION[ICD9: 401.9] Diagnosis: DYSPNEA[ICD9: 786.09] Diagnosis: Family history of CABG[ICD9: V17.49] Lita Ramirez [facility] CPT-4: 17670 07/16/2013 ([id number]) OFFICE/OUTPATIENT VISIT EST Diagnosis: DM W/O COMPLICATION TYPE II, UNCONTROLLED[ICD9: 250.02] Diagnosis: HYPERLIPIDEMIA NEC/NOS[ICD9: 272.4] Diagnosis: HYPERTENSION[ICD9: 401.9] Lita [facility] CPT-4: 82472 06/25/2013 OFFICE/OUTPATIENT VISIT EST Diagnosis: COUGH[ICD9: 786.2] Diagnosis: COPD[ICD9: 496] Kimber[facility] CPT- [facility]: 36207 04/09/2013 ([id number]) OFFICE/OUTPATIENT VISIT EST Diagnosis: Muscle spasm[ICD9: 728.85] Diagnosis: ARTHRALGIA-MULTIPLE SITES[ICD9: 719.49] Lita Ramirez [facility] CPT-4: 49977 02/11/2013 OFFICE/OUTPATIENT VISIT EST Diagnosis: COPD with exacerbation[ICD9: 491.21] Diagnosis: BRONCHITIS, ACUTE[ICD9: 466.0] Ruchi [facility]eter [facility] CPT-4: 31884 01/31/2013 OFFICE/OUTPATIENT VISIT EST Diagnosis: COUGH[ICD9: 786.2] Diagnosis: PHARYNGITIS, ACUTE[ICD9: 462] Diagnosis: SINUSITIS, ACUTE[ICD9: 461.9] Lita Ramirez [facility] CPT-[facility]: 71241 01/20/2013 OFFICE/OUTPATIENT VISIT EST Diagnosis: DIZZINESS/VERTIGO[ICD9: 780.4] Lita BARAKAT [facility] CPT-4: 69624 12/19/2012 OFFICE/OUTPATIENT VISIT EST Diagnosis: Skin lesion of left arm[ICD9: 709.9] Diagnosis: Otitis externa[ICD9: 380.10] Diagnosis: PHARYNGITIS, ACUTE[ICD9: 462] Lita BARAKAT [facility] CPT-4: 02492 10/21/2012 ([id number]) OFFICE/OUTPATIENT VISIT EST Diagnosis: DM W/O COMPLICATION TYPE II, UNCONTROLLED[ICD9: 250.02] Diagnosis: HYPERLIPIDEMIA NEC/NOS[ICD9: 272.4] Diagnosis: HYPERTENSION[ICD9: 401.9] Lita AREVALO [facility] CPT-4: 44287 09/19/2012 ([id number]) OFFICE/OUTPATIENT VISIT EST Diagnosis: DM W/O COMPLICATION TYPE II, UNCONTROLLED[ICD9: 250.02] Diagnosis: HYPERLIPIDEMIA NEC/NOS[ICD9: 272.4] Diagnosis: COPD[ICD9: 496] Lita BARAKAT [facility] CPT- 4: 91433 09/18/2012 ([id number]) OFFICE/OUTPATIENT VISIT EST Diagnosis: BRONCHITIS, ACUTE[ICD9: 466.0] Diagnosis: SINUSITIS, ACUTE[ICD9: 461.9] Lita BARAKAT [facility] CPT-4: 78718 08/28/2012 ([id number]) OFFICE/OUTPATIENT VISIT EST Diagnosis: COPD[ICD9: 496] Diagnosis: DYSPNEA[ICD9: 786.09] Diagnosis: VAC STREP PNEUMONIAE-FLU (Medicare)[ICD9: V06.6] Lita BARAKAT [facility] CPT-4: 16553 07/10/2012 ([id number]) OFFICE/OUTPATIENT VISIT EST Diagnosis: DM W/O COMPLICATION TYPE II, UNCONTROLLED[ICD9: 250.02] Diagnosis: HYPERTENSION[ICD9: 401.9] Diagnosis: HYPERLIPIDEMIA NEC/NOS[ICD9: 272.4] Diagnosis: DIZZINESS/VERTIGO[ICD9: 780.4] Lita CASTELLANOSNDER DO [facility] CPT-4: 18538 05/09/2012 ([id number]) OFFICE/OUTPATIENT VISIT EST Diagnosis: DM W/O COMPLICATION TYPE II, UNCONTROLLED[ICD9: 250.02] Diagnosis: HYPERLIPIDEMIA NEC/NOS[ICD9: 272.4] Diagnosis: HYPERTENSION[ICD9: 401.9] Diagnosis: MALAISE AND FATIGUE[ICD9: 780.79] Lita GOODE Daja SFerdinand JASMINNDER DO [facility] CPT-4: 48259 05/06/2012 OFFICE/OUTPATIENT VISIT EST Diagnosis: COUGH[ICD9: 786.2] Diagnosis: SINUSITIS, ACUTE[ICD9: 461.9] Diagnosis: PHARYNGITIS, ACUTE[ICD9: 462] Lita CRAWFORD SFerdinand JASMINNDER DO [facility] CPT-4: 59945 10/02/2011 OFFICE/OUTPATIENT VISIT EST Diagnosis: DM W/O COMPLICATION TYPE II, UNCONTROLLED[ICD9: 250.02] Diagnosis: HYPERLIPIDEMIA NEC/NOS[ICD9: 272.4] Diagnosis: HYPERTENSION[ICD9: 401.9] Diagnosis: COPD[ICD9: 496] Lita HERRMANNQUELINE S. ORENDER DO [facility] CPT- 4: 87772 08/07/2011 OFFICE/OUTPATIENT VISIT EST Lita HERRMANNQUELINE S. ORE NDER DO [facility] CPT- 4: 87237 04/03/2011 ([id number]) OFFICE/OUTPATIENT VISIT EST Lita TOBAR [facility] CPT-4: 35331 01/18/2011 ([id number]) OFFICE/OUTPATIENT VISIT EST Lita TOBAR SUZANNE S. ORENDER DO [facility] CPT-4: 67693 12/19/2010 ([id number]) OFFICE/OUTPATIENT VISIT, EST Lita HOLMAN S. ORENDER DO [facility] CPT-4: 86692 04/05/2010 ([id number]) OFFICE/OUTPATIENT VISIT, EST Lita HOLMAN S. ORENDER DO [facility] CPT-4: 25545 01/13/2010 ([id number]) OFFICE/OUTPATIENT VISIT, EST Lita [facility]MAN [facility] CPT-4: 80585 12/23/2009 ([id number]) OFFICE/OUTPATIENT VISIT, [facility] CPT-4: 24372 12/22/2009 ([id number]) OFFICE/OUTPATIENT VISIT, [facility] CPT-4: 67682 12/13/2009 Plan of Care Planned Activity Notes [...] Care Plan: Referral Order SNOMED-CT : 30 [id number] Pending 11/12/2019 Care Plan: Referral Order SNOMED-CT : 30 2557344 Pending 11/12/2019 Visit Diagnosis Plan: Right thyroid nodule Discussion: Check thyroid US ICD-9 : 241.0 ICD-10 : E04.1 09/11/2019 Visit Diagnosis Plan: Chronic obstructive pulmonary di sease, unspecified Discussion: Start Pulmonary Rehab Reviewed results of CT of chest ordered by pulmonology Follow Up: 3 months ICD-9 : 496 ICD-10 : J44.9 09/11/2019 Appointment: [facility] [phone] [facility] [facility] 09/11/2019 Care Plan: US EXAM OF HEAD AND NECK LOIN C : 97696-1 Pending 09/11/2019 Visit Diagnosis Plan: Chronic bronchitis Discussion: A ugmentin for 10 days ICD-9 : 491.9 ICD-10 : J42 08/07/2019 Appointment: Lita Barakat WPtel: [address] [place] [address] ACUTE ILLNESS 08/07/2019 Visit Diagnosis Plan: Chronic [...] him that overuse of symbicort can cause intermediate damage and the albuterol is to be used every 4 hours as needed. call office later this week with worsening or no improvement ICD-9 : 491.21 ICD-10 : J44.1 07/14/2019 Appointment: Autumn Oneil [address] [place] [address] ACUTE ILLNESS 07/14/2019 Visit Diagnosis Plan: Dyspepsia [...] : F51.01 07/01/2019 Appointment: Lita Barakat WPtel: [facility] [place] [address] US FOLLOW UP 07/01/2019 Care Plan: CT ABDOMEN W/O DYE LOINC : 36 103-0 Pending 07/01/2019 Care Plan: Referral Order SNOMED-CT : 30 [id number] Pending 07/01/2019 Visit Diagnosis Plan: Weight loss [...] R10.13 06/24/2019 Appointment: Lita [facility]at [facility]Ptel[facility] [phone] [facility] [facility] 06/24/2019 Patient Education: Seroquel- [employer] Coupon [id number] https://www.Photoblog/DCWafers/resources/getResource/61/1gb8n5j0-w093-28w9-35 Completed 06/24/2019 Patient Education: ondansetron HCl- [employer] Coupon [id number] https://www.Photoblog/DCWafers/resources/getResource/61/4092206n-3786-02e2-r7 Completed 06/24/2019 Care Plan: US EXAM ABDOM COMPLETE LOINC : 72893-1 Pending 06/24/2019 Visit Diagnosis Plan: Chronic insomnia [...] : H53.2 06/17/2019 Appointment: Lita Barakat WPtel: [address] [place] [address] US FOLLOW UP 06/17/2019 Appointment: Lita Barakat WPtel: [address] [place] [address] US INJECTION 06/10/2019 Appointment: Lita Barakat WPtel: [address] [place] [address] US INJECTION 06/02/2019 Appointment: Lita Barakat WPtel: [address] [place] [address] US INJECTION 05/27/2019 Appointment: Lita Barakat WPtel: [address] [place] [address] US INJECTION 05/12/2019 Visit Diagnosis Plan: Anemia, [...] : E55.9 05/08/2019 Appointment: Lita Barakat WPtel: [address] [place] [address] US FOLLOW UP 05/08/2019 Visit Diagnosis Plan: Pain in right knee Discussion: S top tramadol and tylenol q HS Trial of Hydrocodone 10/325mg po q HS Recheck 1month ICD-9 : 719.46 ICD-10 : M25.561 04/07/2019 Appointment: Lita Barakat WPtel: [phone] [id number] [facility] Follow Up 04/07/2019 Visit Diagnosis Plan: [...] F41.1 03/24/2019 Appointment: [facility]il [address] [id number] [facility] 03/24/2019 Patient Education: hydroxyzine HCl- [employer] C[employer]on [id number] Completed 03/24/2019 Patient Education: pantoprazole- [employer] Coupon [id number] Completed 03/24/2019 Visit Diagnosis Plan: Chronic obstructiv e pulmonary disease with (acute) exacerbation Discussion: 90 mg solumedrol given in of fice. patient's portable oxygen tank was empty. [id number] patient on importance of monitoring oxygen tank [...] : R42 03/21/2019 Appointment: Autumn Oneil [address] ACUTE ILLNESS 03/21/2019 Patient Education: ipratropium-albuterol- [employer] C taj [id number] https://www.DCWafers.com/samplemd/resources/getResource/61/y5bw01r9-o5n9-4o1v-24 Completed 03/21/2019 Visit Diagnosis Plan: Chronic obstructiv e pulmonary disease with (acute) exacerbation Discussion: Solumedrol now Use SVNs with duoneb at least q4hrs Patient is supposed to be on continuous oxygen but not wearing ICD-9 : 491.21 ICD-10 : J44.1 03/13/2019 Visit Diagnosis Plan: Candidal stomatitis Discussion: Diflucan and Nystatin susp ICD-9 : 112.0 ICD-10 : B37.0 03/13/2019 Appointment: Lita Barakat WPtel: [phone] [facility] ACUTE ILLNESS 03/13/2019 Patient Education: losartan- [employer] Coupon [id number] Completed 03/13/2019 Patient Education: nystatin- [employer] Coupon [id number] Completed 03/13/2019 Patient Education: fluconazole- [employer] Coupon [id number] Completed 03/13/2019 Visit Diagnosis Plan: Chronic obstructiv [...] : G25.81 03/10/2019 Appointment: Lita Barakat WPtel: [address] [place], [place] [id number] ACUTE ILLNESS 03/10/2019 Visit Diagnosis Plan: Restless legs syndrome Discussio n: Stop requip Increase sinemet to TID Add children's chewable MV with iron BID Add magnesium oxide 400mg daily Add Lyrica 75mg po q HS Stop trazadone Recheck 3 weeks Follow Up: 3 weeks ICD-9 : 333.94 ICD-10 : G25.81 02/26/2019 Appointment: Lita Barakat WPtel: [address] [place], [place] [id number] ACUTE ILLNESS 02/26/2019 Visit Diagnosis Plan: Primary insomnia Discussion: Tri al of doxepin 10-20mg po q HS prn sleep ICD-9 : 780.52 ICD-10 : F51.01 02/13/2019 Visit Diagnosis Plan: Chronic obstructive pulmonary di sease, unspecified Discussion: Stable Discussed trip to [place]--will get oxygen setup through [facility] ICD-9 : 496 ICD-10 : J44.9 02/13/2019 Appointment: Lita Barakat WPtel: [address] [place], [place] [phone] FOLLOW UP 02/13/2019 Patient Education: doxepin- [employer] Coupon [id number] https://www.DCWafers.Core Dynamics/samplemd/resources/getResource/61/19l6n91k-91er-477l-2d Completed 02/13/2019 Appointment: Lita Barakat WPtel: [address] [place] [id number] CANCELED 01/20/2019 Visit Diagnosis Plan: Chronic obstructive pulmonary di sease, unspecified Discussion: Stable on oxygen Given Symbicort samples Follow Up: 1 months ICD-9 : 496 ICD-10 : J44.9 01/14/2019 Appointment: Lita Barakat WPtel: [address] [place], [place] [phone] Hospital Follow Up 01/14/2019 Visit Diagnosis Plan: [...] J96.11 12/25/2018 Appointment: Lita Barakat WPtel: [phone] [facility] Hospital Follow Up 12/25/2018 Appointment: Lita Barakat WPtel: [phone] [facility] CANCELED 12/23/2018 Appointment: Ines Banerjee [facility] CANCELED 12/20/2018 Visit Diagnosis Plan: Acute recurrent [...] ICD-10 : I10 12/09/2018 Appointment: Ines Banerjee [facility] LAB 12/09/2018 Patient Education: cefdinir- [employer] Coupon [id number] [email or web address]/samplemd/resources/getResource/[email or web address] Completed 12/09/2018 Visit Diagnosis Plan: Candidal stomatitis Discussion: Diflucan for 5 days Hold atorvastatin while taking ICD-9 : 112.0 ICD-10 : B37.0 12/05/2018 Appointment: Lita Barakat WPtel: [address] [address] [place], [place] [phone] ACUTE ILLNESS 12/05/2018 Patient Education: fluconazole- [employer] Coupon [id number] [email or web address] Completed 12/05/2018 Appointment: Lita Barakat WPtel: [address] [place], [place] [phone] NO SHOW [...] : J01.91 10/23/2018 Appointment: Lita Barakat WPtel: [address] [place], [place] [phone] ACUTE ILLNESS 10/23/2018 Patient Education: prednisone- [employer] Coupon [phone] [email or web address] Completed 10/23/2018 Care Plan: A1C HPLC LOINC : 95177-9 Pending 09/10/2018 Care Plan: COMPREHEN METABOLIC PANEL [place] : 74339-1 Pending 09/10/2018 Care Plan: CBC Pending 09/10/2018 Visit Diagnosis Plan: Basal cell carcinoma of skin of scalp and neck Discussion: Referral to Dr. Swnason for removal--will need to hold aspirin for 5-7 days ICD-9 : 173.41 ICD-10 : C44.41 08/21/2018 Visit Diagnosis Plan: Restless legs syndrome Discussio n: Increase requip to 8mg q HS Call in 1 week on if helping or not ICD-9 : 333.94 ICD-10 : G25.81 08/21/2018 Appointment: Lita Barakat WPtel: [address] [place] [address] ACUTE ILLNESS 08/21/2018 Care Plan: Referral Order SNOMED-CT : 30 3321251 Pending 08/21/2018 Visit Diagnosis Plan: Chronic obstructiv [...] : G25.81 08/07/2018 Appointment: Lita Barakat WPtel: [address] [place] [address] LM FOLLOW UP 08/07/2018 Appointment: Lita Barakattel: [address] [place] [address] 07/18/18 1210---see note in chart (km) CANCELED 07/18/2018 Visit Diagnosis Plan: Chronic obstructiv e pulmonary disease with acute lower respiratory infection Discussion: Solumedrol 125mg IM Change t o trelagy 1 inhalation daily Use SVNs with albuterol q4hrs To ER this weekend if worsens Monitor weight/swelling ICD-9 : 496 ICD-10 : J44.0 05/23/2018 Appointment: Lita Barakattel: [address] [place] [address] ACUTE ILLNESS 05/23/2018 Patient Education: Patient Medication Summary Completed 05/23/2018 Visit Diagnosis Plan: Candidal stomatitis Discussion: Diflucan for 7 more days--hold atrovastatin while taking ICD-9 : 112.0 ICD-10 : B37.0 05/02/2018 Appointment: Lita Barakat WPtel: [facility] [id number] FOLLOW UP 05/02/2018 Patient Education: Patient Medication [...] : J44.0 04/29/2018 Appointment: Autumn Oneil [address] [place], [place] [id number] ACUTE ILLNESS 04/29/2018 Patient Education: Patient Medication [...] : J44.0 04/22/2018 Appointment: Lita Barakat WPtel: [address] [place], [place] [id number] Hospital Follow Up 04/22/2018 Patient Education: Patient Medication Summary Completed 04/22/2018 Appointment: Lita Barakat WPtel: [address] [place], [place] [phone] 04/09/18 1640---see message in chart from today [...] : M17.11 01/28/2018 Appointment: Lita Barakat WPtel: [address] [place], [place] [id number] ACUTE ILLNESS 01/28/2018 Patient Education: Patient Medication Summary Completed 01/28/2018 Care Plan: Referral Order SNOMED-CT : 30 6856939 Pending 01/28/2018 Care Plan: Referral Order SNOMED-CT : 30 8745470 Pending 01/28/2018 Visit Diagnosis Plan: Functional dyspepsia Discussion: Protonix Call in 1 week on how doing ICD-9 : 536.8 ICD-10 : K30 01/23/2018 Visit Diagnosis Plan: Pain in right knee Discussion: T opical voltaren gel QID ICD-9 : 719.46 ICD-10 : M25.561 01/23/2018 Appointment: Lita Barakat WPtel: [address] [place] [address] ACUTE ILLNESS 01/23/2018 Patient Education: Patient Medication [...] N39.0 01/02/2018 Appointment: Lita Barakat WPtel: [address] ACUTE ILLNESS 01/02/2018 Patient Education: Patient [...] ICD-10 : J44.1 12/28/2017 Appointment: Autumn Oneil [address] [place] [address] Consult 12/28/2017 Patient Education: Patient Medication Summary [...] ICD-10 : J20.9 12/21/2017 Appointment: Autumn Oneil [address] [place], [place] [id number] ACUTE ILLNESS 12/21/2017 Patient Education: Patient Medication Summary Completed 12/21/2017 Care Plan: X-RAY EXAM OF KNEE 1 OR 2 right [place] NC : 23389-3 Pending 12/18/2017 Visit Diagnosis Plan: Pain in [...] ICD-10 : J44.0 12/17/2017 Appointment: Autumn Oneil [address] [place], [place] [id number] ACUTE ILLNESS 12/17/2017 Patient Education: Patient Medication Summary Completed 12/17/2017 Visit Diagnosis Plan: Unilateral primary osteoarthriti s, right knee Discussion: Right knee injection as above Warned of elevated BS after injection ICD-9 : 715.96 ICD-10 : M17.11 12/11/2017 Appointment: Lita Barakat WPtel: [facility] [facility] [facility] 12/11/2017 Patient Education: Patient Medication Summary Completed 12/11/2017 Visit Diagnosis Plan: Actinic keratosis Discussion: Cr yotherapy as above If persists then will need excision by Dr. Swanson ICD-9 : 702.0 ICD-10 : L57.0 11/07/2017 Appointment: Lita Barakat WPtel: [address] [place] [address] ACUTE ILLNESS 11/07/2017 Patient Education: Patient Medication [...] : S61.411S 10/17/2017 Appointment: Lita Barakat WPtel: [address] [place] [address] ER Follow UP 10/17/2017 Patient Education: Patient Medication Summary Completed 10/17/2017 Appointment: Lita Barakat WPtel: [address] [place] [address] [place] Consult 08/15/2017 Visit Diagnosis Plan: Chronic [...] 491.22 ICD-10 : J44.0 08/02/2017 Appointment: Autumn Oneli [address] [place] [address] ACUTE ILLNESS 08/02/2017 Patient Education: Patient Medication Summary Completed 08/02/2017 Patient Education: Patient Medication Summary Completed 07/31/2017 Care Plan: CHEST X-RAY 2VW FRONTAL&LATL LOINC : 34920-1 Pending 07/31/2017 Appointment: Lita Barakat WPtel: [address] [place], [place] [phone] [place] INJECTION 07/24/2017 Patient Education: Patient Medication [...] ICD-10 : J44.1 07/02/2017 Appointment: Autumn Oneil [address] [place] [address] ACUTE ILLNESS 07/02/2017 Patient Education: Patient Medication Summary Completed 07/02/2017 Care Plan: CHEST X-RAY 2VW FRONTAL&LATL LOINC : 41405-6 Pending 07/02/2017 Care Plan: MRI LUMBAR SPINE W/O DYE LOIN C : 74616-6 Pending 05/30/2017 Visit Plan: MRI at [facility] codone 5.325 1 po q 4-6 hours prn pain #40 NR and Cyclobenzaprine (ERx) Continue warm packs for pain RTC if no improvement 05/29/2017 Appointment: Ruchi Buchanan WPtel: [address] [place], [place] [phone] ACUTE ILLNESS 05/29/2017 Patient Education: Patient Medication Summary Completed 05/29/2017 Appointment: Lita Barakat WPtel: [address] [place], [place] [phone] [place] CANCELED 05/24/2017 Patient Education: Patient Medication Summary Completed 05/22/2017 Care Plan: X-RAY EXAM L-S SPINE 2/3 VWS LOINC : 61955-8 Pending 05/22/2017 Appointment: Lita Barakat WPtel: [address] [place], [place] [phone] [place] LAB 04/17/2017 Patient Education: Patient Medication Summary Completed 04/17/2017 Referral: Cassidy Demetrius WPtel: 1201 [facility]6676[facility] Referral Initiated 04/05/2017 Appointment: Lita Barakat WPtel: [address] [place], [place] [phone] 03/30/17 0930---spoke with patient about ointments (km Consult 03/30/2017 Appointment: Lita Barakat WPtel: [address] [place], [place] [address] 03/29/17 1320---spoke with patient, requip refilled wasn't received at pharmacy so verbally called (km) Consult 03/29/2017 Patient Education: Patient Medication Summary Completed 03/01/2017 Care Plan: CHEST X-RAY 2VW FRONTAL&LATL LOINC : 35681-8 Pending 03/01/2017 Visit Diagnosis Plan: Bursitis of left shoulder Discus yesi: Injection as above ICD-9 : 726.10 ICD-10 : M75.52 02/01/2017 Appointment: Lita Barakat WPtel: [address] [place], [place] [phone] 01/31 confirmed ~sl WORK IN 02/01/2017 Patient Education: Patient Medication Summary Completed 02/01/2017 Care Plan: X-RAY EXAM OF SHOULDER LOINC : 35810-2 Pending 01/30/2017 Visit Plan: May take OTC Tylenol/Ibuprof en as directed XRay at [facility] of left shoulder Tramadol 50mg 1 po q 6 hours prn pain called to [facility]. Sedation warning given (no driving, etc) RTC if no improvement 01/29/2017 Appointment: Ruchi Buchanan WPtel: [address] [place], [place] [id number] ACUTE ILLNESS 01/29/2017 Appointment: Ruhci Buchanan WPtel: [address] [place] [address] ACUTE ILLNESS 01/29/2017 Patient Education: Patient Medication Summary Completed 01/29/2017 Appointment: Lita Barakattel: [address] [place] [address] [place] Consult 01/10/2017 Appointment: Lita Barakat WPtel: [address] [place] [address] 12/27/2016 Patient Education: Patient Medication Summary Completed [...] : R53.83 12/21/2016 Appointment: Lita Barakat WPtel: [address] [place] [address] ACUTE ILLNESS 12/21/2016 Patient Education: Patient Medication Summary Completed 12/21/2016 Appointment: Lita Barakat WPtel: [address] [place] [address] CANCELED 12/18/2016 Visit Diagnosis Plan: Restless legs [...] D64.9 12/14/2016 Appointment: Lita Barakat WPtel: [phone] [facility] 12/13 confirmed ~sl WORK IN 12/14/2016 Appointment: Lita Barakat WPtel: [address] [place], [place] [id number] [place] CANCELED 12/14/2016 Patient Education: Patient Medication Summary Completed 12/14/2016 Appointment: Lita Barakat WPtel: [address] [place], [place] [id number] [place] LAB 12/12/2016 Patient Education: Patient Medication Summary Completed 12/12/2016 Appointment: Lita Barakat WPtel: [address] [place], [place] [phone] in ER this weekend--called for reports Consult 12/11/2016 Appointment: Lita Barakat WPtel: [address] [place], [place] [id number] [place] CANCELED 12/04/2016 Visit Diagnosis Plan: Pneumonia, [...] : G25.81 11/14/2016 Appointment: Magda [facility]oth [facility] [facility] [facility] REVIEW 11/14/2016 Patient Education: Patient Medication Summary Completed 11/14/2016 Appointment: Lita Barakat WPtel: [address] [place], [place] [phone] [place] RESCHEDULED 11/02/2016 Visit Diagnosis Plan: Candidal stomatitis Discussion: Diflucan and Nystatin Hold atorvastatin while taking diflucan ICD-9 : 112.0 ICD-10 : B37.0 10/31/2016 Appointment: Lita Barakat WPtel: [address] [place] [address] ACUTE ILLNESS 10/31/2016 Patient Education: Patient Medication Summary Completed 10/31/2016 Appointment: Lita Barakat WPtel: [address] [place] [address] [place] Consult 10/23/2016 Appointment: Lita Barakat WPtel: [address] [place], [place] [phone] [place] CANCELED 10/18/2016 Visit Plan: Rx as above Wear O2 at all t imes as instructed by Dr Chacon Continue breathing treatments Supportive care otherwise reviewed Follow up ingrid if not improving 10/03/2016 Appointment: Lita Barakat WPtel: [address] [place], [place] [phone] [place] CANCELED 10/03/2016 Appointment: Magda Toth [address] [place] [address] ACUTE ILLNESS 10/03/2016 Patient Education: Patient Medication Summary Completed 10/03/2016 Visit Plan: Titrate requip to 1.5mg x 1 week Call if not helpful and will increase to 2mg qHS NO MORE nyquil at bedtime - discussed potential effects of decongestants on heart, oversedating himself, etc Will increase requip, then amitriptyline if needed to desired effect 09/04/2016 Appointment: Magda Toth [address] [place] [address] ACUTE ILLNESS 09/04/2016 Patient Education: Patient Medication Summary Completed 09/04/2016 Visit Plan: Stop requip and try elavil C ryotherapy as above See ENT for removal of right ear lesion 08/22/2016 Appointment: Lita Barakat WPtel: [address] [place] [address] ACUTE ILLNESS 08/22/2016 Patient Education: Patient Medication Summary Completed 08/22/2016 Visit Plan: Trial of requip 1mg q HS Res tart zoloft Recheck 1month 08/10/2016 Appointment: Lita Barakat WPtel: [address] [place] [address] ACUTE ILLNESS 08/10/2016 Patient Education: Patient Medication Summary Completed 08/10/2016 Visit Plan: Stop HCTZ Flagyl for diarrhe a Hydrate Discussed meds for restless legs Zofran prn Nausea 07/06/2016 Appointment: Lita Barakat WPtel: [address] [place] [address] 07/05 confirmed~sl Hospital Follow Up 07/06/2016 Patient Education: Patient Medication Summary Completed 07/06/2016 Visit Plan: Reviewed with Dr Gasper Palacios sidering his recent history, instructed him to go straight to the ER called to notify her so she can meet him there 06/22/2016 Appointment: Magda Toth [address] [place] [address] ACUTE ILLNESS 06/22/2016 Patient Education: Patient Medication Summary Completed 06/22/2016 Visit Plan: Continue current meds Prevna r 13 and High Dose Flu given 06/13/2016 Appointment: Lita Barakat WPtel: [address] [place] [address] 06/13 confirmed~sl WORK IN 06/13/2016 Patient Education: Patient Medication Summary Completed 06/13/2016 Appointment: Lita Barakat WPtel: [address] [place] [address] just went over current medications CANCELED 06/08/2016 Visit Plan: Reviewed POC with Dr Barakat Stat cbc, cmp, d dimer, troponin, bnp, ekg, cxr If any worsening of symptoms while awaiting results, patient instructed to go to ER or call 911 06/01/2016 Appointment: Magda Toth 2305 [facility] ACUTE ILLNESS 06/01/2016 Patient Education: Patient Medication Summary Completed 06/01/2016 Referral: José Miguel Swanson WPtel: [address] 04/[address] swanson's office, patient [...] and treatment 04/26/2016 Appointment: Magda Toth 2305 [facility] ACUTE ILLNESS 04/26/2016 Patient Education: Patient Medication Summary Completed 04/26/2016 Care Plan: Referral Order SNOMED-CT : 30 1453111 Pending 04/26/2016 Visit Plan: Left ear flushed after conse nt with warm water with peroxide with ear syringe Patient tolerated well Ear exam is wnl following flushing Follow up PRN 04/05/2016 Appointment: Magda Toth Lianna [facility]6676[facility] ACUTE ILLNESS 04/05/2016 Patient Education: Patient Medication Summary Completed 04/05/2016 Visit Plan: Increase Levemir to 25u sc d aily Increase sertraline to 2 full tablets daily--200mg Debrox or cerumenex to bilateral ears q HS for 3 nights then flush or fwup for fushing Check lab in 2mos then fwup 04/03/2016 Appointment: Lita Barakat WPtel: [address] [place], [place] [phone] 03/31 7 lm ~sl FOLLOW UP 04/03/2016 Patient Education: Patient Medication Summary Completed 04/03/2016 Visit Plan: Patient informed of correct dosage of levemir and how to administer. Patient verbalizes understanding and will call if any questions/concerns. 10 Units of Levemir given in office SC to right lower abdom en. Patient tolerated well. Site without redness/irritation. 03/13/2016 Appointment: Lita Barakat WPtel: [address] [place], [place] [phone] SPECIAL 03/13/2016 Patient Education: Patient Medication Summary Completed 03/13/2016 Appointment: Lita Barakat WPtel: [address] [place], [place] [phone] LAB 03/06/2016 Patient Education: Patient Medication Summary Completed 03/06/2016 Visit Plan: Patient saw Dr. Chacon this week and was given prednisone taper for COPD Continue current meds Accuchecks daily Patient will return on Sunday morning for fasting lab incuding CBC, CMP, TSH, free T4, HbA1C, Lipids, Testosterone, PSA 03/02/2016 Appointment: Lita Barakat WPtel: [address] [place] [address] 03/01 confirmed ~sl FOLLOW UP 03/02/2016 Patient [...] how doing 02/17/2016 Appointment: Lita Barakat WPtel: [address] [place] [address] WORK IN 02/17/2016 Patient Education: Patient Medication Summary Completed 02/17/2016 Visit Plan: Xrays to further evaluate Alvarez spect heel spur(s) Will call with results Has had injections in the past that were helpful Dr Barakat can do them or can refer to podiatry if warranted 02/14/2016 Appointment: Magda Toth [address] [place] [address] ACUTE ILLNESS 02/14/2016 Patient Education: Patient Medication Summary Completed 02/14/2016 Visit Plan: Increase Zoloft to 150mg cooper ly 01/31/2016 Appointment: Lita Barakat WPtel: [address] [place], [place] [id number] [place] 01/26 confirmed `sl FOLLOW UP 01/31/2016 Patient Education: Patient Medication Summary Completed 01/31/2016 Visit Plan: Decrease citalopram to 20mg q AM for 1 week then stop Start zoloft 50mg q HS for 1 week then increase to 100mg q HS 12/30/2015 Appointment: Lita Barakat WPtel: [address] [place], [place] [id number] [place] 12/28 confirmed~sl ACUTE ILLNESS 12/30/2015 Patient Education: Patient Medication Summary Completed 12/30/2015 Visit Plan: Check Neck US 12/16/2015 Appointment: Lita Barakat WPtel: [address] [place], [place] [phone] 12/14 lm ~sl 12/15 confirmed-sp FOLLOW UP 12/16/2015 Patient Education: Patient Medication Summary Completed 12/16/2015 Care Plan: US EXAM OF HEAD AND NECK LOIN C : 34609-4 Ordered 12/16/2015 Appointment: Stephanie Rios WPtel: [address] [place], [place] [phone] [place] 12/09 confirmed-sp 12/12 lm ~sl Patient [...] PO TID 12/06/2015 Appointment: Stephanie Rios WPtel: [address] [place], [place] [address] ACUTE ILLNESS 12/06/2015 Patient Education: Patient Medication Summary Completed 12/06/2015 Referral: Lisbeth Darby WPtel: [facility] [address] [facility] 11/18/15 called luther at [facility] office and confirmed time and date of appointment with patient~sl Initiated 11/18/2015 Visit Plan: Referral to Dermatology for removal of facial skin lesions Cefdinir PO bid Topical Mupirocin to skin lesions bid 11/15/2015 Appointment: Stephanie Rios WPtel: [address] [place], [place] [phone] ACUTE ILLNESS 11/15/2015 Patient Education: Patient Medication Summary Completed 11/15/2015 Visit Plan: Continue current meds Accuch ecks daily Fwup with ophthamology as scheduled Will check lab in 3mos then fwup due to recent meds that will affect blood sugar 10/05/2015 Appointment: Lita Barakat WPtel: [address] [place], [place] [phone] 10/04/15 appt confirmed cn Annual Well Visit 08/2016 Patient Education: Patient Medication Summary Completed 10/05/2015 Visit Plan: Trajenta -1 sample box given Return visit in 6 weeks for fasting labs Notify for worsening symptoms such as Increased redness, swelling, pain or drainage of Rt. knee 07/22/2015 Appointment: Stephanie Rios WPtel: [address] [place], [place] [phone] 07/21 vm left cn FOLLOW UP 07/22/2015 Patient Education: Patient Medication Summary Completed 07/22/2015 Visit Plan: Continue to change dressing twice daily and apply Mupirocin Complete Doxycycline as directed. Follow-up for worsening symptoms, such as increased swelling, redness or pain. 07/01/2015 Appointment: Stephanie Rios WPtel: [address] [place], [place] [phone] FOLLOW UP 07/01/2015 Patient Education: Patient Medication Summary Completed 07/01/2015 Visit Plan: Pressure dressing applied to draining wound left knee. Instructed to change dressing twice daily and continue Mupirocin topical Doxycycline PO bid x 10 days Wound culture obtained. Wound tissue sent to pathology Follow-up in 3 days 06/28/2015 Appointment: Stephanie Rios WPtel: [address] [place], [place] [phone] ACUTE ILLNESS 06/28/2015 Patient Education: Patient Medication Summary Completed 06/28/2015 Visit Plan: Complete antibiotics Follow- up for increased tenderness, swelling or drainage. 06/09/2015 Appointment: Stephanie Rios WPtel: [facility]9 [facility] 06/08/15 lm FOLLOW UP 06/09/2015 Patient Education: Patient Medication Summary Completed 06/09/2015 Visit Plan: Apply pressure dressing toda y Continue antibiotics and topical Mupirocin Follow-up in 2 days Bursa drained from open area using pressure--serosanguinous drainage 06/07/2015 Appointment: Stephanie Rios WPtel: [facility]2 [facility] 06/04/15 confirmed with patient FOLLOW UP 0 06/07/2015 Patient Education: Patient Medication Summary Completed 06/07/2015 Visit Plan: Wound culture Lt. knee Apply mupirocin to open wound bid Clindamycin 600 mg PO bid x 10 days Follow-up on Sunday06/03/2015 Appointment: Stephanie Rios WPtel: [address] [place], [place] [phone] ACUTE ILLNESS 06/03/2015 Patient Education: Patient Medication Summary Completed 06/03/2015 Visit Plan: Accuchecks daily Check CMP, HbA1C today Patient is noncompliant with meds and diet but patient says he is doing everything he is supposed to do Wants to try performomist instead of albuterol in SVN 06/01/2015 Appointment: Lita Barakat WPtel: [address] [place], [place] [address] 05/28 appt confirmed cn FOLLOW UP 06/01/20 Patient Education: Patient Medication Summary Completed 06/01/2015 Visit Plan: Change Breo Ellipta to Advai r 500/50 1 p BID this next month Continue turdoza Use albuterol prn Check CMP, HbA1C today Accuchecks daily Cryotherapy as above 02/25/2015 Appointment: Lita Barakat WPtel: [facility]7 [facility] 02/24 appt confirmed and explained needed payment he said ok FOLLOW UP 02/25/2015 Patient Education: Patient Medication Summary Completed 02/25/2015 Referral: Lopez Chacon [facility] C&D [id number] [place] Will put patient on cancellation list Initiated 12/08/2014 Appointment: Lita Barakat WPtel: [address] [place] [address] Hospital Follow Up 10/29/2014 Visit Plan: Finish prednisone Continue S VNs with albuterol QID See pulmonology and start Pulmonary rehab Once again discussed taking it easy this winter--that he is high risk for exacerbation 10/27/2014 Appointment: Lita Barakat WPtel: [address] [place] [address] FOLLOW UP 10/27/2014 Patient Education: Patient Medication Summary Completed 10/27/2014 Appointment: Lita Barakat WPtel: [address] [place], [place] [phone] FOLLOW UP 10/26/2014 Appointment: Stephanie Rios WPtel: [address] [place] [address] WORK IN 10/21/2014 Patient Education: Patient Medication Summary Completed 10/21/2014 Patient Education: Patient Medication Summary Completed 10/19/2014 Visit Plan: Continue oxygen and SVNS wit h duoneb Increase farxiga to 10mg daily Diflucan 100mg daily for 1week 10/06/2014 Appointment: Lita Barakat WPtel: [address] [place], [place] [phone] Moved appt time to 2:45pm FOLLOW UP 2014 Patient Education: Patient Medication Summary Completed 10/06/2014 Visit Plan: Finish omnicef Continue Breo BID and Turdoza Use SVNS with duoneb at least TID for next 2weeks then go to prn 09/21/2014 Appointment: Lita Barakat WPtel: [address] [place] [id number] Hospital Follow Up 09/21/2014 Patient Education: Patient Medication Summary Completed 09/21/2014 Patient Education: [facility] - [employer] - Ventolin HFA - 18+ - Dynamic Portal ID Completed 09/21/2014 Appointment: Stephanie Rios WPtel: [address] [place], [place] [phone] Scheduled by 09/07 patient rescheduled to 09/08 with Stephanie. Hospital Follow Up 09/08/2014 Patient Education: Patient Medication Summary Completed 09/08/2014 Appointment: Stephanie Rios WPtel: [address] [place], [place] [phone] FOLLOW UP 09/02/2014 Patient Education: Patient Medication Summary Completed 09/02/2014 Patient Education: [employer] - Antibi otics, Analgesics 18+, Oral Contraceptives F 18+ Completed 09/02/2014 Appointment: Lita Barakat WPtel: [address] [place], [place] [phone] UA 08/27/2014 Patient Education: Patient Medication Summary [...] prn sleep 08/10/2014 Appointment: Lita Barakat WPtel: [address] [place], [place] [id number] Annual Well Visit 08/10/2014 Patient Education: Patient Medication Summary Completed 08/10/2014 Appointment: Lita Barakat WPtel: [address] [place], [place] [phone] LAB 08/05/2014 Patient Education: Patient Medication Summary Completed 08/05/2014 Visit Plan: ECHO results reviewed Contin ue Breo and Turdoza Pt starts PT this afternoon for back--has had one epidural with no help in pain 05/05/2014 Appointment: Lita Barakat WPtel: [address] [place] [address] FOLLOW UP 05/05/2014 Patient Education: Patient Medication Summary Completed 05/05/2014 Visit Plan: Continue Breo and Turdoza Camargo s heart tests scheduled next week Will see surgeon for removal of skin cancer to neck after done with cardiac workup 03/24/2014 Appointment: Lita Barakat WPtel: [address] [place] [address] FOLLOW UP 03/24/2014 Patient Education: Patient Medication Summary Completed 03/24/2014 Visit Plan: Proceed with cardiology eval uation as patient is has numerous risk factors for CAD Change Symbicort to Breo 1p BID and add Turdorza 1p BID Recheck in weeks Check 2-D ECHO and lexiscan 03/10/2014 Appointment: Lita Barakat WPtel: [address] [place] [address] FOLLOW UP 03/10/2014 Patient Education: Patient Medication Summary Completed 03/10/2014 Visit Plan: Shoulder injection as above Back brace to use when doing any lifting for stability 12/16/2013 Appointment: Lita Barakat WPtel: [address] [place] [address] ACUTE ILLNESS 12/16/2013 Patient Education: Patient Medication Summary Completed 12/16/2013 Visit Plan: Continue symbicort and Turdo za Salt water gargles Omnicef 300mg 2 po daily for 1wk Phenergan with codeine 10/09/2013 Appointment: Lita Barakat WPtel: [address] [place] [address] WORK IN 10/09/2013 Patient Education: Patient Medication Summary Completed 10/09/2013 Appointment: Ruchi Buchanan WPtel: [address] [place] [address] ACUTE ILLNESS 09/18/2013 Patient Education: Patient Medication Summary Completed 09/18/2013 Visit Plan: Check on repeat CXR Finish a bx Start Tradjenta to replace metformin 08/13/2013 Appointment: Lita Barakat WPtel: [address] [place] [address] 08/12 Hospital Follow Up 08/13/2013 Patient Education: Patient Medication Summary Completed 08/13/2013 Visit Plan: Admit to hospital 08/06/2013 Appointment: Stephanie Rios WPtel: [address] [place] [address] ACUTE ILLNESS 08/06/2013 Patient Education: Patient Medication Summary Completed 08/06/2013 Visit Plan: Continue current meds Contin ue accuchecks daily Proceed with stress test due to high risk for CAD 07/16/2013 Appointment: Lita Barakat WPtel: [address] [place] [address] FOLLOW UP 07/16/2013 Patient Education: Patient Medication Summary Completed 07/16/2013 Appointment: Lita Barakat WPtel: [address] [place] [address] LAB 06/25/2013 Patient Education: Patient Medication Summary Completed 06/25/2013 Visit Plan: prednisone and azithromycin. Doing CBC and mycoplasma blood draw. Will continue inhaler and albuterol breathing treatments. 04/09/2013 Appointment: Kimberly Villalba WPtel: [address] [place] [address] ACUTE ILLNESS 04/09/2013 Patient Education: Patient Medication Summary Completed 04/09/2013 Appointment: Lita Baraakt WPtel: [address] [place] [address] ACUTE ILLNESS 02/11/2013 Patient Education: Patient Medication Summary Completed 02/11/2013 Appointment: Ruchi Buchanan WPtel: [address] [place] [address] ACUTE ILLNESS 01/31/2013 Patient Education: Patient Medication Summary Completed 01/31/2013 Visit Plan: Cefdinir and medrol dose pac k. Codeine/guiaf cough syrup. Has colonoscopy on Sunday. Pt. is to notify if fever occurs or symptoms worsen. Hydration and rest. 01/20/2013 Appointment: Kimberly Villalba WPtel: [address] [place] [address] ACUTE ILLNESS 01/20/2013 Patient Education: Patient Medication Summary Completed 01/20/2013 Visit Plan: Scopalamine patch and vestib ular exercises 12/19/2012 Appointment: Lita Barakat WPtel: [address] [place] [address] ACUTE ILLNESS 12/19/2012 Patient Education: Patient Medication Summary Completed 12/19/2012 Visit Plan: Dr. Swanson consult if no impr ovement in hearing. Pt. reports he will notify if no better in one week. Willam consult for skin lesion. 10/21/2012 Appointment: Kimberly Villalba WPtel: [address] [place] [address] ACUTE ILLNESS 10/21/2012 Patient Education: Patient Medication Summary Completed 10/21/2012 Appointment: Lita Barakattel: [address] [place] [address] LAB 09/19/2012 Patient Education: Patient Medication Summary Completed 09/19/2012 Visit Plan: Check fasting lab in AM--CMP , Lipids, HbA1C 09/18/2012 Appointment: Lita Barakat WPtel: [address] [place] [address] FOLLOW UP 09/18/2012 Patient Education: Patient Medication Summary Completed 09/18/2012 Appointment: Lita Barakattel: [address] [place] [address] appt time scheduled sooner FOLLOW UP 09/05 Visit Plan: Doxycycline and Prednisone I ncrease SVN to QID Add back Symbicort 160/4.5 2 p BID 08/28/2012 Appointment: Lita Barakat WPtel: [address] [place], [place] [phone] [place] FOLLOW UP 08/28/2012 Patient Education: Patient Medication Summary Completed 08/28/2012 Appointment: Lita Barakat WPtel: [address] [place], [place] [phone] Annual Well Visit 07/10/2012 Patient Education: Patient Medication Summary Completed 07/10/2012 Visit Plan: Finish Z-pack Add Nasonex Ad d Meclizine Vestibular exercises Continue current meds and accuchecks Check lab and fwup in 4mos 05/09/2012 Appointment: Lita Barakat WPtel: [address] [place], [place] [phone] [place] number no longer works FOLLOW UP 2 Patient Education: Patient Medication Summary Completed 05/09/2012 Appointment: Lita Barakat WPtel: [address] [place], [place] [phone] [place] LAB 05/06/2012 Patient Education: Patient Medication Summary Completed 05/06/2012 Appointment: Lita Barakat WPtel: [address] [place], [place] [phone] [place] LAB 05/02/2012 Appointment: Lita Barakat WPtel: [address] [place], [place] [phone] [place] INJECTION 02/05/2012 Patient Education: Patient Medication Summary Completed 02/05/2012 Visit Plan: cefdinir. Will focus on rest and fluids. Pt. reports he is using breathing treatments as needed. Pt. will monitor for worsening symptoms or fever. 10/02/2011 Appointment: Kimberly Villalba WPtel: [address] [place], [place] [phone] ACUTE ILLNESS 10/02/2011 Patient Education: Patient Medication Summary Completed 10/02/2011 Appointment: Lita Barakat WPtel: [address] [place] [phone] [place] INJECTION 08/10/2011 Patient Education: Patient Medication Summary Completed 08/10/2011 Visit Plan: Continue current meds Restar t Advair Restart exercise Flu shot given 08/07/2011 Appointment: Lita Barakattel: [address] [place] [phone] [place] FOLLOW UP 08/07/2011 Patient Education: Patient Medication Summary Completed 08/07/2011 Appointment: Lita Barakattel: [address] [place], [place] [phone] [place] LAB 07/26/2011 Patient Education: Patient Medication Summary Completed 07/26/2011 Visit Plan: ALEKSANDER Carmen Continue Metformin but change to BID Add Lantus 25u sc q PM BS readings in 1wk 04/03/2011 Appointment: Lita Barakattel: [address] [place], [place] [id number] ACUTE ILLNESS 04/03/2011 Patient Education: Patient Medication Summary Completed 04/03/2011 Appointment: Lita Barakat WPtel: [address] [place], [place] [phone] [place] INJECTION 01/19/2011 Patient Education: Patient Medication Summary Completed 01/19/2011 Appointment: Lita Barakattel: [address] [place], [place] [phone] [place] ACUTE ILLNESS 01/18/2011 Patient Education: Patient Medication Summary Completed 01/18/2011 Appointment: Lita Barakattel: [address] [place], [place] [phone] [place] INJECTION 12/21/2010 Patient Education: Patient Medication Summary Completed 12/21/2010 Appointment: Lita Barakattel: [address] [place], [place] [phone] [place] FOLLOW UP 12/19/2010 Patient Education: Patient Medication Summary Completed 12/19/2010 Appointment: Lita Barakat WPtel: [address] [place], [place] [phone] [place] LAB 12/07/2010 Patient Education: Patient Medication Summary Completed 12/07/2010 Appointment: Kimberly Villalba WPtel: [address] [place], [place] [phone] ACUTE ILLNESS 04/05/2010 Patient Education: Patient Medication Summary Completed 04/05/2010 Appointment: Lita Barakat WPtel: [address] [place] [phone] WORK IN 03/14/2010 Patient Education: Patient Medication Summary Completed 03/14/2010 Appointment: Lita Barakat WPtel: [address] [place], [place] [phone] [place] LAB 03/02/2010 Visit Plan: HbA1C in 3mos. Continue Accu checks BID alternating times. Switch lexapro to celexa 01/13/2010 Appointment: Lita Barakat WPtel: [address] [place], [place] [phone] FOLLOW UP 01/13/2010 Patient Education: Patient Medication Summary Completed 01/13/2010 Appointment: Lita Barakat WPtel: [address] [place], [place] [phone] FOLLOW UP 01/11/2010 Visit Plan: Pt. will continue the Avalox and Doxycycline regimen as prescribed the previous day. He has been advised to continue inhalers, breathing treatments and oxygen therapy for at least the weekend. Moderate activity without strenuous exercise. The pt. will seek immediate re-eval if his symptoms worsen. 12/23/2009 Appointment: Kimberly Villalba WPtel: [address] [place], [place] [phone] FOLLOW UP 12/23/2009 Patient Education: Patient Medication [...] tomorrow morning. 12/22/2009 Appointment: Kimberly Villalba WPtel: [address] [place] [address] ACUTE ILLNESS 12/22/2009 Patient Education: Patient Medication Summary Completed 12/22/2009 Appointment: Kimberly Villalba WPtel: [address] [place] [address] FOLLOW UP 12/21/2009 Appointment: Lita Barakat WPtel: [address] [place] [address] [place] INJECTION 12/16/2009 Patient Education: Patient Medication Summary Completed 12/16/2009 Appointment: Kimberly Villalba WPtel: [address] [place] [address] ACUTE ILLNESS 12/13/2009 Patient Education: Patient Medication Summary Completed 12/13/2009 Care Plan: X-RAY EXAM OF SHOULDER lt shoulder (pain ra diates across the shoulder) Hand carried orders to [facility] LOINC : 26260-2 Ordered 12/13/2009 Care Plan: X-RAY EXAM THORAC SPINE 2VWS Hand carried order LOINC : 87961-7 Ordered 12/13/2009 Care Plan: X-RAY EXAM RIBS UNI 2 VIEWS Posterior ribs of lt. side Pt. hand carries order to [facility] LOINC : 06759-1 Ordered 12/13/2009 Referral: José Miguel Swanson WPtel: [address] [address] [place] Referral Appointment Requested Referral: José Miguel Swanson WPtel: [address] [address] [place] Referral Appointment Requested Referral: Chandu Quarles WPtel: [address] [place] [address] Quarles for screening colonoscopy. P atient notified that [facility] office will book appt with him Initiated Referral: Santosh Machado WPtel: [facility] [place] [id number] [place] Referral Appointment Requested Referral: José Miguel Swanson WPtel: [address] [address] [place] Referral Initiated Referral: Lopez Chacon [address] [facility] [place] [address] [place] Referral Initiated Referral: Demetrius Rodriguez WPtel: [address] [address] [place] Referral Appointment Requested Referral: José Miguel Swanson WPtel: [address] [address] [place] Referral Appointment Requested Referral: José Miguel Swanson WPtel: [address] [address] [place] Referral Initiated Instructions Comment . Saline nasal flushes prn. Tylenol/Motr in prn headache. Notify if persists/symptoms worsening. . MRI at [facility] Hydrocodone 5.325 1 po q [...]
--- OUTSIDE RECORDS SUMMARY | 2019-12-31 00:39 | XMS REPORT | CCD ---
Author Author Leandro Barakat D.O. Organization LITA BARAKAT DO [facility] Address [address] [place] [address] Phone Care Team Providers Care Agile Qa Tester Name Role Phone Lita Barakat D.O., PP Unavailable CCM Unavailable Summary Purpose Interface Exchange Insurance Providers Payer name Policy type / Coverage type Covered democrat ID Effective Begin Date Effective End Date [employer] Medicare Part B [id number] 2018 Unknown Family history Brother Diagnosis Age At Onset Cancer Unknown Father Diagnosis Age At Onset Heart disease Unknown Mother Diagnosis Age At Onset Heart disease Unknown Social History Social History Element Codes Description Effective Dates Tobacco history SNOMED CT: 3692124 Former smoker quit 15 years ago 08/07/2011 [...] R07.9 06/22/2016 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: [...] Fill Instructions Seroquel 50 mg tablet RxNorm: 328179 1 Tablet(s) Oral QPM as ne eded for sleep 10/07/2019 12/05/2019 Active ropinirole 4 mg tablet RxNorm: 039321 3 TABLET(S) BY [facility] DAILY AT BEDTIME FOR RESTLESS LEGS 09/29/2019 12/27/2019 Active Generic For:REQU IP 4 MG TABLET 09/29/2019 7:52:42 AM N O T I C E Last quantity doesn't match original quantity ipratropium 0.5 mg-albuterol 3 mg (2.5 mg base)/3 mL n ebulization soln RxNorm: 7680503 USE 1 VIAL IN NEBULIZER EVERY FOUR HOURS (THIS REPLACES ALBUTEROL SOLUTION) 09/26/2019 10/15/2019 Inactive Generic For:*DUO NEB 2.5-0.5 MG/3 ML SOLN 09/26/2019 9:08:53 AM ropinirole 4 mg tablet RxNorm: 686943 3 TABLET(S) BY [facility] DAILY AT BEDTIME FOR RESTLESS LEGS 09/26/2019 09/28/2019 Inactive Generic For:REQU IP 4 MG TABLET 09/26/2019 9:08:48 AM N O T I C E Last quantity doesn't match original quantity hydrocodone 10 mg-acetaminophen 325 mg tablet RxNorm: 455424 1 Tablet(s) Oral Q4H as needed for pain 09/09/2019 09/09/2019 Inactive hydrocodone 10 mg-acetaminophen 325 mg tablet RxNorm: 869250 1 Tablet(s) Oral Q4H as needed for pain 09/09/2019 09/08/2019 Inactive ondansetron HCl 4 mg tablet RxNorm: 295599 1 Tablet(s) Oral QPM for nausea 08/12/2019 10/10/2019 Inactive ipratropium 0.5 mg-albuterol 3 mg (2.5 mg base)/3 mL n ebulization soln RxNorm: 3587419 1 Unit Dose INH Q4H 08/12/2019 09/25/2019 Inactive replaces albuterol solution Augmentin 875 mg-125 mg tablet RxNorm: 632605 1 Tablet(s) Oral two times a day 08/07/2019 08/17/2019 Inactive prednisone 20 mg tablet RxNorm: 179037 1 Tablet(s) Oral QD 08/05/2008/04/2019 Inactive prednisone 20 mg tablet RxNorm: 855621 1 Tablet(s) Oral QD 08/05/2008/06/2019 Inactive Levaquin 500 mg tablet RxNorm: 123319 1 Tablet(s) Oral QD Replaces azithromycin (z-pack) 07/31/2019 08/05/2019 Inactive Levaquin 500 mg tablet RxNorm: 333586 1 Tablet(s) Oral QD Replaces azithromycin (z-pack) 07/21/2019 07/26/2019 Inactive Levaquin 500 mg tablet RxNorm: 104894 1 Tablet(s) Oral QD Replaces azithromycin (z-pack) 07/21/2019 07/20/2019 Inactive Zithromax Z-Gui 250 mg tablet RxNorm: 416966 Tablet(s) Oral 019 07/22/2019 Inactive Zithromax Z-Gui 250 mg tablet RxNorm: 499562 Tablet(s) Oral 019 07/15/2019 Inactive Symbicort 160 mcg-4.5 mcg/actuation HFA aerosol inhaler RxNo rm: 3506763 2 Puff(s) Inhalation two times a day 07/14/2019 07/14/2019 Inactive Tessalon Perles 100 mg capsule RxNorm: 111965 1 Capsule(s) Oral Q8H as needed 07/14/2019 08/06/2019 Inactive Seroquel 50 mg tablet RxNorm: 794717 1 Tablet(s) Oral QPM as ne eded for sleep 07/01/2019 10/06/2019 Inactive ondansetron HCl 4 mg tablet RxNorm: 723557 1 Tablet(s) Oral QPM for nausea 06/24/2019 07/24/2019 Inactive Seroquel 25 mg tablet RxNorm: 629071 1 Tablet(s) Oral every nig ht at bedtime 06/19/2019 06/18/2019 Inactive Seroquel 25 mg tablet RxNorm: 676896 1 Tablet(s) Oral every nig ht at bedtime 06/19/2019 06/30/2019 Inactive trazodone 150 mg tablet RxNorm: 671784 1/2 Tablet(s) PO QHS as needed for sleep 06/11/2019 06/17/2019 Inactive replaces PA on doxep in trazodone 150 mg tablet RxNorm: 738069 1/2 Tablet(s) PO QHS as needed for sleep 05/12/2019 06/11/2019 Inactive replaces PA on doxep in cyanocobalamin (vit B-12) 1,000 mcg/mL injection solution Rx Norm: 430727 1 injection weekly for 4 weeks 1 Milliliter(s) Inj 05/09/2019 No Stop Date Active Vitamin D3 5,000 unit tablet RxNorm: 930308 1 Tablet(s) PO QD 05/09 No Stop Date Active ferrous sulfate 325 mg (65 mg iron) tablet RxNorm: 525193 1 Tab let(s) PO QD 05/09/2019 No Stop Date Active magnesium oxide 400 mg (241.3 mg magnesium) tablet RxNorm: 1 15117 1 Tablet(s) PO QHS 05/09/2019 No Stop Date Active ropinirole 4 mg tablet RxNorm: 428467 3 TABLET(S) BY [facility] DAILY AT BEDTIME FOR RESTLESS LEGS 03/26/2019 06/23/2019 Inactive Generic For:REQU IP 4 MG TABLET 03/26/2019 11:23:36 AM N O T I C E Last quantity doesn't match original quantity pantoprazole 40 mg tablet,delayed release RxNorm: 849624 Tablet(s) TAKE 1 TABLET BY MOUTH DAILY FOR STOMACH 03/24/2019 06/21/2019 Inactive Gener ic For:PROTONIX 40MG TAB EC 01/03/2019 1:23:44 PM hydroxyzine HCl 10 mg tablet RxNorm: 378125 1 Tablet(s) PO BID as needed 03/24/2019 04/06/2019 Inactive ipratropium-albuterol 0.5 mg-3 mg(2.5 mg base)/3 mL ne bulization soln RxNorm: 6102593 1 Unit Dose INH Q4H 03/21/2019 No Stop Date Active replaces albuterol solution meclizine 12.5 mg tablet RxNorm: 412457 1 Tablet(s) PO BID as neede d 03/21/2019 No Stop Date Active losartan 100 mg tablet RxNorm: 400091 1 Tablet(s) PO QD replace s lisinopril 03/13/2019 09/08/2019 Inactive fluconazole 100 mg tablet RxNorm: 597925 1 Tablet(s) PO QD 03/13/20 19 03/19/2019 Inactive nystatin 100,000 unit/mL oral suspension RxNorm: 787675 5 Unit( s) PO QID 03/13/2019 03/26/2019 Inactive tramadol 50 mg tablet RxNorm: 897142 1 Tablet(s) PO TID as needed for pain TAKE 2 TABS OF EXTRA STRENGTH TYLENOL WITH EACH DOSE 03/10/2019 04/06/2019 Inactive Generic For:*ULTRAM 50 MG TABLET 01/15/2019 4:55:26 PM Sinemet CR 50 mg-200 mg tablet,extended release RxNorm: 8343 41 1 Tablet(s) PO TID 02/26/2019 08/24/2019 Inactive Generic For:*SIN EMET CR 50/200 TABLET SA 07/08/2018 3:09:11 PM trazodone 150 mg tablet RxNorm: 115606 1/2 Tablet(s) PO QHS as needed for sleep 02/13/2019 02/12/2019 Inactive trazodone 150 mg tablet RxNorm: 464251 1/2 Tablet(s) PO QHS as needed for sleep 02/13/2019 02/25/2019 Inactive replaces PA on doxep in doxepin 10 mg capsule RxNorm: 6291162 1-2 Capsule(s) PO QHS prn sleep 02/13/2019 02/13/2019 Inactive Novolog U-100 Insulin aspart 100 unit/mL subcutaneous soluti on RxNorm: 462552 INJECT 10 UNIT(S) SUBCUTANEOUSLY BEFORE MEALS 01/31/2019 05/30/2019 In active 01/31/2019 1:39:10 PM ipratropium-albuterol 0.5 mg-3 mg(2.5 mg base)/3 mL ne bulization soln RxNorm: 2574676 1 Unit Dose INH Q4H 01/17/2019 03/20/2019 Inactive replaces albuterol solution tramadol 50 mg tablet RxNorm: 219846 1 Tablet(s) PO TID as needed for pain TAKE 2 TABS OF EXTRA STRENGTH TYLENOL WITH EACH DOSE 01/15/2019 02/03/2019 Inactive Generic For:*ULTRAM 50 MG TABLET 01/15/2019 4:55:26 PM Sinemet CR 50 mg-200 mg tablet,extended release RxNorm: 8343 41 1 Tablet(s) PO BID 01/03/2019 02/25/2019 Inactive Generic For:*SIN EMET CR 50/200 TABLET 07/08/2018 3:09:11 PM losartan 100 mg tablet RxNorm: 932905 1 Tablet(s) PO QD replace s lisinopril 01/03/2019 03/12/2019 Inactive Symbicort 160 mcg-4.5 mcg/actuation HFA aerosol inhaler RxNo rm: 3902352 2 Puff(s) INH BID 01/03/2019 01/02/2019 Inactive pantoprazole 40 mg tablet,delayed release RxNorm: 227568 TAKE 1 TABLET BY MOUTH DAILY FOR STOMACH 01/03/2019 03/23/2019 Inactive Generic For:NM OTONIX 40MG TAB EC 01/03/2019 1:23:44 PM nystatin 100,000 unit/mL oral suspension RxNorm: 926110 Unit(s) 5 Unit(s) PO QID swish and spit 01/02/2019 11/11/2019 Inactive Incruse Ellipta 62.5 mcg/actuation powder for inhalation RxN orm: 9742315 1 Capsule(s) INH QD 12/25/2018 No Stop Date Active Tessalon Perles 100 mg capsule RxNorm: 652403 1 Capsule(s) PO T ID for cough 12/25/2018 02/25/2019 Inactive Medrol (Gui) 4 mg tablets in a dose pack RxNorm: 881370 Tablet(s) PO Use as directed 12/23/2018 01/02/2019 Inactive Levemir FlexTouch U-100 Insulin 100 unit/mL (3 mL) sub cutaneous pen RxNorm: 467099 20 Unit(s) SQ QD with pen needles 12/13/2018 05/11/2019 Inactiv e prednisone 20 mg tablet RxNorm: 723870 1 Tablet(s) PO QD 12/12/2018 0 12/11/2018 Inactive prednisone 20 mg tablet RxNorm: 296774 1 Tablet(s) PO QD 12/12/2018 0 12/16/2018 Inactive promethazine 6.25 mg-codeine 10 mg/5 mL syrup RxNorm: 143303 5 Milliliter(s) PO QHS as needed for cough 12/09/2018 12/18/2018 Inactive cefdinir 300 mg capsule RxNorm: 153116 1 Capsule(s) PO BID 12/10/19 19 12/18/2018 Inactive fluconazole 100 mg tablet RxNorm: 943384 1 Tablet(s) PO QD 12/06/19 19 12/08/2018 Inactive ropinirole 4 mg tablet RxNorm: 851398 3 Tablet(s) PO QHS for re stless legs 12/04/2018 03/03/2019 Inactive Novolog U-100 Insulin aspart 100 unit/mL subcutaneous soluti on RxNorm: 816773 INJECT 10 UNIT(S) SUBCUTANEOUSLY BEFORE MEALS 12/04/2018 01/30/2019 In active 12/04/2018 10:02:42 AM nystatin 100,000 unit/mL oral suspension RxNorm: 437780 5 Unit(s) PO QID swish and spit 11/25/2018 12/18/2018 Inactive ropinirole 4 mg tablet RxNorm: 119836 3 Tablet(s) PO QHS for re stless legs 11/04/2018 12/03/2018 Inactive prednisone 20 mg tablet RxNorm: 555592 1 Tablet(s) PO BID 10/23/2018 10/29/2018 Inactive ropinirole 4 mg tablet RxNorm: 193581 3 Tablet(s) PO QHS for re stless legs 10/14/2018 11/04/2018 Inactive pantoprazole 40 mg tablet,delayed release RxNorm: 253334 1 Tablet(s) PO QD forstomach 10/10/2018 01/02/2019 Inactive Symbicort 160 mcg-4.5 mcg/actuation HFA aerosol inhaler RxNo rm: 6886979 2 Puff(s) INH BID 10/10/2018 01/03/2019 Inactive Novolog U-100 Insulin aspart 100 unit/mL subcutaneous soluti on RxNorm: 556581 INJECT 10 UNIT(S) SUBCUTANEOUSLY BEFORE MEALS 10/10/2018 12/03/2018 In active 10/10/2018 11:30:01 AM Sinemet CR 50 mg-200 mg tablet,extended release RxNorm: 8343 41 1 Tablet(s) PO BID 09/26/2018 01/03/2019 Inactive Generic For:*SIN EMET CR 50/200 TABLET SA 07/08/2018 3:09:11 PM ropinirole 4 mg tablet RxNorm: 578378 2 Tablet(s) PO QHS for re stless legs 09/18/2018 10/13/2018 Inactive metformin ER 1,000 mg tablet,extended release 24hr RxNorm: 1 497307 1 Tablet(s) PO BID 09/09/2018 12/18/2018 Inactive ropinirole 4 mg tablet RxNorm: 021622 2 Tablet(s) PO QHS for re stless legs 08/21/2018 09/17/2018 Inactive doxycycline hyclate 100 mg capsule RxNorm: 8539892 1 Capsule(s) PO BID 08/07/2018 08/13/2018 Inactive ropinirole 4 mg tablet RxNorm: 883773 1 Tablet(s) PO QHS replac es 1mg dose 08/07/2018 08/20/2018 Inactive ropinirole 2 mg tablet RxNorm: 833171 TAKE 3 TABLETS BY MOUTH DAILY AT BEDTIME DO NOT EXCEED 3 TABLETS PER DAY!!!! 07/31/2018 08/06/2018 Inactive Generic For:REQUIP 2 MG TABLET 07/30/2018 3:50:28 PM Symbicort 160 mcg-4.5 mcg/actuation HFA aerosol inhaler RxNo rm: 5540712 2 Puff(s) INH BID 07/12/2018 10/09/2018 Inactive Sinemet CR 50 mg-200 mg tablet,extended release RxNorm: 8343 41 TAKE 1 TABLET BY MOUTH TWICE DAILY 07/08/2018 09/26/2018 Inactive Generic For:*S INEMET CR 50/200 TABLET SA 07/08/2018 3:09:11 PM losartan 100 mg tablet RxNorm: 821271 1 Tablet(s) PO QD replace s lisinopril 06/17/2018 12/13/2018 Inactive Novolog U-100 Insulin aspart 100 unit/mL subcutaneous soluti on RxNorm: 449048 10 Unit(s) SQ AC 06/17/2018 10/09/2018 Inactive albuterol sulfate 2.5 mg/3 mL (0.083 %) solution for n ebulization RxNorm: 721066 Milliliter(s) INH USE 1 VIAL IN NEBULIZE R EVERY FOUR HOURS NEEDED FOR WHEEZING OR SHORTNESS OF BREATH 06/13/2018 01/16/2019 Inactive Generic For:*PROVENTIL 0.83 MG/ML SOLUTN 06/13/2013 2:04:46 PM ropinirole 2 mg tablet RxNorm: 611845 3 Tablet(s) PO QH S DO NOT EXCEED 6MG (3 TABLETS) PER DAY!!!! 06/13/2018 07/31/2018 Inactive atorvastatin 40 mg tablet RxNorm: 643149 Tablet(s) TAKE 1 TABLET BY MOUTH EVERY DAY 05/13/2018 12/18/2018 Inactive Generic For:LIPI TOR 40MG TAB 05/01/2018 8:37:31 AM Sinemet CR 50 mg-200 mg tablet,extended release RxNorm: 8343 41 1 Tablet(s) PO BID 05/08/2018 07/06/2018 Inactive Lidocaine Viscous 2 % mucosal solution RxNorm: 3493051 5 Milliliter(s) PO QID as needed 05/02/2018 08/06/2018 Inactive Diflucan 100 mg tablet RxNorm: 727135 1 Tablet(s) PO QD 05/02/2018 Inactive atorvastatin 40 mg tablet RxNorm: 209305 TAKE 1 TABLET BY MOUTH EVERY DAY 05/01/2018 05/13/2018 Inactive Generic For:LIPITOR 40MG TAB 05/01/2018 8:37:31 AM nystatin 100,000 unit/mL oral suspension RxNorm: 462659 5 Unit(s) PO QID (before meals and at bedtime) 04/24/2018 04/30/2018 Inactive Ventolin HFA 90 mcg/actuation aerosol inhaler RxNorm: 975434 2 Puff(s) INH Q4H as needed one inhaler for home and one inhaler for car 04/23/201812/18 Inactive Mucinex 600 mg tablet, extended release RxNorm: 384376 1 Tablet(s) PO BID for congestion 04/22/2018 05/21/2018 Inactive prednisone 10 mg tablet RxNorm: 514552 Tablet(s) PO as directeds 08/06/2018 Inactive ropinirole 2 mg tablet RxNorm: 099344 3 Tablet(s) PO QH S DO NOT EXCEED 6MG (3 TABLETS) PER DAY!!!! 04/09/2018 05/08/2018 Inactive gabapentin 300 mg capsule RxNorm: 556776 1-2 Capsule(s) PO QHS 0702/201804/08/2018 Inactive ropinirole 2 mg tablet RxNorm: 868317 1 Tablet(s) PO QHS 03/28/2018 0 04/08/2018 Inactive gabapentin 300 mg capsule RxNorm: 382997 1-2 Capsule(s) PO QHS 02/2303/29/2018 Inactive gabapentin 300 mg capsule RxNorm: 417808 1-2 Capsule(s) PO QHS 02/2203/13/2018 Inactive gabapentin 300 mg capsule RxNorm: 269730 2 Capsule(s) PO QHS 201703/11/2018 Inactive ropinirole 2 mg tablet RxNorm: 208022 1 Tablet(s) PO QHS 02/28/2018 0 03/28/2018 Inactive ropinirole 2 mg tablet RxNorm: 521151 1 Tablet(s) PO QHS 02/28/2018 0 02/27/2018 Inactive gabapentin 300 mg capsule RxNorm: 173250 1 Capsule(s) PO QHS 201702/27/2018 Inactive pantoprazole 40 mg tablet,delayed release RxNorm: 327890 1 Tablet(s) PO QD forstomach 01/23/2018 05/22/2018 Inactive Voltaren 1 % topical gel RxNorm: 816949 1 Gram(s) TOP QID to ri ght knee 01/23/2018 02/04/2018 Inactive metformin ER 500 mg tablet,extended release 24hr RxNorm: 860 975 2 Tablet(s) PO BID 01/09/2018 12/08/2018 Inactive Requip 1 mg tablet RxNorm: 444075 1 Tablet(s) PO QHS 01/09/201802/27 Inactive prednisone 20 mg tablet RxNorm: 551588 1 Tablet(s) PO T ID for 3 days then 1 po BID for 3 days then one daily for 3 days 01/02/2018 02/03/2018 Inactiv e Levaquin 500 mg tablet RxNorm: 334989 1 Tablet(s) PO QD 01/02/2018 Inactive ProAir HFA 90 mcg/actuation aerosol inhaler RxNorm: 280958 2 Puff(s) INH Q4H as needed 12/28/2017 No Stop Date Active please switch to ventolin if insurance doesn't cover montelukast 10 mg tablet RxNorm: 617509 1 Tablet(s) PO QD 12/28/2017 02/03/2018 Inactive Levaquin 500 mg tablet RxNorm: 337726 1 Tablet(s) PO QD 12/21/2017 Inactive ProAir HFA 90 mcg/actuation aerosol inhaler RxNorm: 138860 2 Puff(s) INH Q4H as needed 12/21/2017 12/27/2017 Inactive please switch to ventolin if insurance doesn't cover doxycycline hyclate 100 mg tablet RxNorm: 710562 1 Tablet(s) PO BID 12/17/2017 12/26/2017 Inactive Levemir FlexTouch U-100 Insulin 100 unit/mL (3 mL) sub cutaneous pen RxNorm: 562290 20 Unit(s) SQ QD with pen needles---Due for labs 12/11/2017 02/03/2018 Inactive Requip 1 mg tablet RxNorm: 925105 1 Tablet(s) PO QHS 12/10/201712/09 Inactive Requip 1 mg tablet RxNorm: 181130 1 Tablet(s) PO QHS 12/10/201701/09 Inactive albuterol sulfate 2.5 mg/3 mL (0.083 %) solution for n ebulization RxNorm: 066634 Milliliter(s) INH USE 1 VIAL IN NEBULIZE R EVERY FOUR HOURS NEEDED FOR WHEEZING OR SHORTNESS OF BREATH 12/05/2017 06/13/2018 Inactive Generic For:*PROVENTIL 0.83 MG/ML SOLUTN 06/13/2013 2:04:46 PM Tudorza Pressair 400 mcg/actuation breath activated RxNorm: 9116044 1 Puff(s) INH BID 12/03/2017 12/10/2017 Inactive Levemir FlexTouch U-100 Insulin 100 unit/mL (3 mL) sub cutaneous pen RxNorm: 193146 10 Unit(s) SQ QD with pen needles---Due for labs 11/16/2017 12/10/2017 Inactive Zofran ODT 4 mg disintegrating tablet RxNorm: 372706 1 Tablet(s) PO Q4H as needed for nausea 10/17/2017 02/04/2018 Inactive Efudex 5 % topical cream RxNorm: 297046 Application TOP QD prn to precancer skin lesions 10/17/2017 02/03/2018 Inactive Sinemet CR 50 mg-200 mg tablet,extended release RxNorm: 8343 41 1 Tablet(s) PO BID 10/17/2017 02/05/2018 Inactive Sinemet CR 50 mg-200 mg tablet,extended release RxNorm: 8343 41 1 Tablet(s) PO QHS 09/25/2017 10/16/2017 Inactive gabapentin 600 mg tablet RxNorm: 654998 1 Tablet(s) PO BID 08/15/20 17 08/14/2017 Inactive gabapentin 600 mg tablet RxNorm: 445789 1 Tablet(s) PO BID 08/15/20 17 12/10/2017 Inactive Novolog U-100 Insulin aspart 100 unit/mL subcutaneous soluti on RxNorm: 035011 10 Unit(s) SQ AC 08/15/2017 02/03/2018 Inactive Novolog 100 unit/mL subcutaneous solution RxNorm: 531707 10 Uni t(s) SQ AC 08/13/2017 08/14/2017 Inactive prednisone 20 mg tablet RxNorm: 613810 2 Tablet(s) PO QD 08/02/2017 1 10/04/2016 Inactive gabapentin 600 mg tablet RxNorm: 299887 Tablet(s) 1 Tab let(s) PO QHS replaces 300mg dose 07/09/2017 08/14/2017 Inactive Breo Ellipta 100 mcg-25 mcg/dose powder for inhalation RxNor m: 8187712 1 Unit Dose INH QD 07/02/2017 08/30/2017 Inactive Tudorza Pressair 400 mcg/actuation breath activated RxNorm: 6982055 1 Puff(s) INH BID 06/18/2017 12/02/2017 Inactive gabapentin 600 mg tablet RxNorm: 362842 1 Tablet(s) PO QHS repl aces 300mg dose 06/14/2017 07/08/2017 Inactive metformin ER 1,000 mg tablet,extended release 24hr RxNorm: 1 043479 1 Tablet(s) PO BID 05/29/2017 01/08/2018 Inactive cyclobenzaprine 5 mg tablet RxNorm: 774534 1 Tablet(s) PO TID 05/2906/07/2017 Inactive metformin ER 1,000 mg tablet,extended release 24hr RxNorm: 8 92388 1 Tablet(s) PO BID 05/25/2017 05/28/2017 Inactive metformin ER 1,000 mg tablet,extended release 24hr RxNorm: 8 44961 1 Tablet(s) PO BID 05/22/2017 05/24/2017 Inactive Amaryl 2 mg tablet RxNorm: 256895 1 Tablet(s) PO BID 05/01/201702/03 Inactive glimepiride 2 mg tablet RxNorm: 096052 1 Tablet(s) PO BID 04/19/2017 02/03/2018 Inactive ferrous sulfate 325 mg (65 mg iron) tablet RxNorm: 624795 1 Tab let(s) PO QHS 04/17/2017 02/03/2018 Inactive Requip 4 mg tablet RxNorm: 308497 1 Tablet(s) PO BID 04/12/201704/11 Inactive Requip 4 mg tablet RxNorm: 032813 1 Tablet(s) PO BID 04/12/201704/15 Inactive Levemir FlexTouch 100 unit/mL (3 mL) subcutaneous insulin pe n RxNorm: 123895 10 Unit(s) SQ QD with pen needles---Due for labs 04/05/2017 11/15/2017 In active Silenor 3 mg tablet RxNorm: 854349 1 Tablet(s) PO QHS 04/05/201709/25 Inactive ropinirole 4 mg tablet RxNorm: 247294 1 Tablet(s) PO QHS 03/29/2017 0 04/01/2017 Inactive ropinirole 4 mg tablet RxNorm: 560705 1 Tablet(s) PO QHS 03/29/2017 0 03/28/2017 Inactive Requip 4 mg tablet RxNorm: 774807 1 Tablet(s) PO QHS 03/28/201704/01 Inactive gabapentin 600 mg tablet RxNorm: 710602 1 Tablet(s) PO QHS repl aces 300mg dose 03/28/2017 04/15/2017 Inactive Requip 4 mg tablet RxNorm: 147709 1 Tablet(s) PO QHS 03/23/201703/27 Inactive gabapentin 600 mg tablet RxNorm: 724195 1 Tablet(s) PO QHS 03/13/20 17 03/12/2017 Inactive gabapentin 600 mg tablet RxNorm: 845510 1 Tablet(s) PO QHS 03/13/20 17 03/27/2017 Inactive gabapentin 300 mg capsule RxNorm: 194252 1 Capsule(s) PO QPM 201603/12/2017 Inactive Generic For:NEURONTIN 300 MG CAPSULE 01/22/2017 10:10:39 AM losartan 100 mg tablet RxNorm: 515736 1 Tablet(s) PO QD replace s lisinopril 02/21/2017 06/17/2018 Inactive gabapentin 300 mg capsule RxNorm: 462746 TAKE 1 CAPSULE BY MOUT H EVERY EVENING 01/22/2017 02/21/2017 Inactive Generic For:NEURONTI N 300 MG CAPSULE 01/22/2017 10:10:39 AM gabapentin 300 mg capsule RxNorm: 875902 1 Capsule(s) PO QPM 201601/21/2017 Inactive Requip 4 mg tablet RxNorm: 686725 1 Tablet(s) PO QHS 12/21/201603/20 Inactive Effient 10 mg tablet RxNorm: 247509 1 Tablet(s) PO QD 12/12/201612/23 Inactive gabapentin 300 mg capsule RxNorm: 374782 1 Capsule(s) PO QPM 201612/03/2016 Inactive gabapentin 300 mg capsule RxNorm: 149808 1 Capsule(s) PO QPM 201612/13/2016 Inactive Requip 4 mg tablet RxNorm: 148921 1 Tablet(s) PO QHS 11/28/201612/21 Inactive atorvastatin 40 mg tablet RxNorm: 998355 Tablet(s) 1 Tablet(s) PO Q D 11/22/2016 08/18/2017 Inactive atorvastatin 40 mg tablet RxNorm: 025717 1 Tablet(s) PO QD 11/23/19 17 11/21/2016 Inactive ropinirole 1 mg tablet RxNorm: 041416 2.5 Tablet(s) PO QPM for legs/sleep 11/14/2016 11/27/2016 Inactive nystatin 100,000 unit/mL oral suspension RxNorm: 433229 5 Unit(s) PO QID swish and spit 10/31/2016 02/03/2018 Inactive fluconazole 100 mg tablet RxNorm: 712444 1 Tablet(s) PO QD 10/31/19 17 11/09/2016 Inactive doxycycline hyclate 100 mg capsule RxNorm: 3814179 1 Capsule(s) PO BID 10/03/2016 10/12/2016 Inactive Levemir FlexTouch 100 unit/mL (3 mL) subcutaneous insulin pe n RxNorm: 429649 10 Unit(s) SQ QD with pen needles 09/18/2016 04/04/2017 Inactive amitriptyline 25 mg tablet RxNorm: 263657 1 Tablet(s) P O QHS as needed for sleep 09/04/2016 10/17/2016 Inactive ropinirole 1 mg tablet RxNorm: 530369 1.5 Tablet(s) PO QPM for legs/sleep 09/04/2016 11/13/2016 Inactive amitriptyline 25 mg tablet RxNorm: 538456 1 Tablet(s) P O QHS as needed for sleep 08/22/2016 09/03/2016 Inactive clopidogrel 75 mg tablet RxNorm: 617695 1 Tablet(s) PO QD 08/10/2016 10/17/2016 Inactive Zoloft 100 mg tablet RxNorm: 246604 2 Tablet(s) PO QHS 08/10/2016 Inactive atorvastatin 40 mg tablet RxNorm: 836683 1 Tablet(s) PO QD 08/10/2010/17/2016 Inactive ropinirole 1 mg tablet RxNorm: 087347 1 Tablet(s) PO QPM for le gs/sleep 08/10/2016 09/03/2016 Inactive losartan 100 mg tablet RxNorm: 871333 1 Tablet(s) PO QD replace s lisinopril 07/20/2016 02/21/2017 Inactive Zofran 4 mg tablet RxNorm: 487214 1 Tablet(s) PO Q4H as needed for nausea 07/06/2016 10/17/2016 Inactive Flagyl 500 mg tablet RxNorm: 534274 1 Tablet(s) PO TID 07/06/2016 Inactive Plavix 75 mg tablet RxNorm: 246271 1 Tablet(s) PO QD 06/08/201607/05 Inactive isosorbide mononitrate ER 30 mg tablet,extended release 24 h r RxNorm: 783079 1 Tablet(s) PO QAM 06/08/2016 08/09/2016 Inactive atorvastatin 40 mg tablet RxNorm: 229101 1 Tablet(s) PO QD 06/08/20 16 08/09/2016 Inactive hydrochlorothiazide 12.5 mg tablet RxNorm: 066276 1 Tablet(s) PO QA M 06/08/2016 07/05/2016 Inactive metformin ER 1,000 mg tablet,extended release 24hr RxNorm: 8 65336 1 Tablet(s) PO BID 06/08/2016 09/05/2016 Inactive metoprolol tartrate 25 mg tablet RxNorm: 501623 1/2 Tablet(s) PO BI D 06/08/2016 08/09/2016 Inactive Zoloft 100 mg tablet RxNorm: 949369 2 Tablet(s) PO QHS 04/03/2016 Inactive metformin ER 1,000 mg tablet,extended release 24hr RxNorm: 8 73795 Tablet(s) 1 Tablet(s) PO QD 03/30/2016 12/18/2018 Inactive Levemir FlexTouch 100 unit/mL (3 mL) subcutaneous insulin pe n RxNorm: 358220 10 Unit(s) SQ QD 03/09/2016 03/08/2016 Inactive Levemir FlexTouch 100 unit/mL (3 mL) subcutaneous insulin pe n RxNorm: 828733 10 Unit(s) SQ QD with pen needles 03/09/2016 03/20/2016 Inactive Mobic 15 mg tablet RxNorm: 562547 1 Tablet(s) PO QD for foot pain 0 02/17/2016 03/17/2016 Inactive Zoloft 100 mg tablet RxNorm: 428396 1 1/2 Tablet(s) PO QHS 01/31/20 16 04/02/2016 Inactive omeprazole 20 mg capsule,delayed release RxNorm: 700138 TAKE 2 CAPSULES BY MOUTH EVERY DAY 01/12/2016 08/09/2016 Inactive Generic For:*CHERYL LOSEC [address] 01/12/2016 8:58:34 AM Zoloft 100 mg tablet RxNorm: 833697 1/2 Tablet(s) PO QH S for 1 week then 1 tablet po q HS 12/30/2015 01/27/2016 Inactive Ventolin HFA 90 mcg/actuation aerosol inhaler RxNorm: 884257 2 Puff(s) INH QID as needed for shortness of breath 12/30/2015 02/03/2018 Inactive [AttnRPh: Saving apply/adjudicate RxGRP:SG20 RxBIN:[id number] RxPCN: ID#:[id number]] metformin ER 1,000 mg tablet,extended release 24hr RxNorm: 8 83302 1 Tablet(s) PO QD 12/20/2015 03/18/2016 Inactive clindamycin 300 mg capsule RxNorm: 566399 1 Capsule(s) PO TID 12/0512/15/2015 Inactive mupirocin 2 % topical cream RxNorm: 089054 TOP to facial lesion s twice daily 11/15/2015 12/15/2015 Inactive cefdinir 300 mg capsule RxNorm: 758273 1 Capsule(s) PO BID 11/15/19 16 11/24/2015 Inactive Medrol (Gui) 4 mg tablets in a dose pack RxNorm: 125924 Tablet(s) PO as directed 10/11/2015 12/15/2015 Inactive albuterol sulfate 2.5 mg/3 mL (0.083 %) solution for n ebulization RxNorm: 918294 INH USE 1 VIAL IN NEBULIZER EVERY FOUR H OURS NEEDED FOR WHEEZING OR SHORTNESS OF BREATH 10/05/2015 10/04/2015 Inactive Generic For:*PRO VENTIL 0.83 MG/ML SOLUTN 06/13/2013 2:04:46 PM doxycycline hyclate 100 mg capsule RxNorm: 1861043 1 Capsule(s) PO BID 10/05/2015 10/14/2015 Inactive albuterol sulfate 2.5 mg/3 mL (0.083 %) solution for n ebulization RxNorm: 245788 Milliliter(s) INH USE 1 VIAL IN NEBULIZE R EVERY FOUR HOURS NEEDED FOR WHEEZING OR SHORTNESS OF BREATH Dx: J44.9 10/05/2015 12/05/2017 Inacti ve Generic For:*PROVENTIL 0.83 MG/ML SOLUTN 06/13/2013 2:04:46 PM albuterol sulfate 2.5 mg/3 mL (0.083 %) solution for n ebulization RxNorm: 080198 3 Milliliter(s) INH USE 1 VIAL IN NEBULI ZER EVERY FOUR HOURS NEEDED FOR WHEEZING OR SHORTNESS OF BREATH 09/06/2015 10/04/2015 Inactive Generic For:*PROVENTIL 0.83 MG/ML SOLUTN 06/13/2013 2:04:46 PM Tradjenta 5 mg tablet RxNorm: 2856747 2 Tablet(s) PO QD 07/22/2015 Inactive albuterol sulfate 2.5 mg/3 mL (0.083 %) solution for n ebulization RxNorm: 428785 3 Milliliter(s) INH USE 1 VIAL IN NEBULI ZER EVERY FOUR HOURS NEEDED FOR WHEEZING OR SHORTNESS OF BREATH 06/29/2015 09/05/2015 Inactive Generic For:*PROVENTIL 0.83 MG/ML SOLUTN 06/13/2013 2:04:46 PM albuterol sulfate 2.5 mg/3 mL (0.083 %) solution for n ebulization RxNorm: 528307 Milliliter(s) INH USE 1 VIAL IN NEBULIZE R EVERY FOUR HOURS NEEDED FOR WHEEZING OR SHORTNESS OF BREATH 06/29/2015 12/04/2017 Inactive Generic For:*PROVENTIL 0.83 MG/ML SOLUTN 06/13/2013 2:04:46 PM doxycycline hyclate 100 mg tablet RxNorm: 588518 1 Tablet(s) PO BID 06/28/2015 07/07/2015 Inactive losartan 100 mg tablet RxNorm: 163630 1 Tablet(s) PO QD -replac es lisinopril 06/14/2015 09/05/2015 Inactive metformin ER 1,000 mg tablet,extended release 24hr RxNorm: 8 45449 1 Tablet(s) PO QD 06/14/2015 09/11/2015 Inactive losartan 100 mg tablet RxNorm: 047570 1 Tablet(s) PO QD -replac es lisinopril 06/14/2015 12/10/2015 Inactive Zocor 20 mg tablet RxNorm: 227236 Tablet(s) Tablet(s) 1 Tablet(s) PO QD -needs lipids labs 06/14/2015 06/14/2015 Inactive atorvastatin 40 mg tablet RxNorm: 619544 1 Tablet(s) PO QD repl aces simvastatin 06/14/2015 12/10/2015 Inactive loratadine 10 mg tablet RxNorm: 848115 Tablet(s) 1 Tablet(s) PO QD for drainage 06/14/2015 06/07/2016 Inactive Celexa 40 mg tablet RxNorm: 195993 1 Tablet(s) PO QD TA KE ONE (1) TABLET BY MOUTH DAILY 06/14/2015 12/29/2015 Inactive Generic For:HARJINDER XA 40 MG TABLET clindamycin 300 mg capsule RxNorm: 036749 2 Capsule(s) PO BID 06/0306/12/2015 Inactive metformin ER 1,000 mg tablet,extended release 24hr RxNorm: 8 19776 1 Tablet(s) PO QD 06/03/2015 06/02/2015 Inactive metformin ER 1,000 mg tablet,extended release 24hr RxNorm: 8 47555 1 Tablet(s) PO QD 06/03/2015 06/13/2015 Inactive mupirocin 2 % topical ointment RxNorm: 385522 TOP apply to open lesion of knee twice daily 06/03/2015 01/30/2016 Inactive Zocor 20 mg tablet RxNorm: 721060 Tablet(s) 1 Tablet(s ) PO QD -needs lipids labs 05/13/2015 06/13/2015 Inactive Celexa 40 mg tablet RxNorm: 974718 1 Tablet(s) PO QD TA KE ONE (1) TABLET BY MOUTH DAILY 05/13/2015 06/13/2015 Inactive Generic For:HARJINDER XA 40 MG TABLET Zocor 20 mg tablet RxNorm: 202227 Tablet(s) 1 Tablet(s ) PO QD -needs lipids labs 02/23/2015 03/24/2015 Inactive loratadine 10 mg tablet RxNorm: 722366 1 Tablet(s) PO QD for dr saenz 12/24/2014 06/13/2015 Inactive Zocor 20 mg tablet RxNorm: 655607 1 Tablet(s) PO QD -needs lipi ds labs 11/17/2014 02/23/2015 Inactive Celexa 40 mg tablet RxNorm: 482717 1 Tablet(s) PO QD 1 Tablet(s) PO QD 1 Tablet(s) PO QD Generic OKAY 11/11/2014 05/13/2015 Inactive Zocor 20 mg tablet RxNorm: 249315 1 Tablet(s) PO QD -needs lipi ds labs 11/11/2014 11/16/2014 Inactive omeprazole 20 mg capsule,delayed release RxNorm: 033804 2 Capsule(s) PO QD TAKE 2 CAPSULES BY MOUTH DAILY 10/27/2014 04/24/2015 Inactive Shena harp For:*PRILOSEC 20 MG CAPSULE trazodone 50 mg tablet RxNorm: 826321 1 1/2 Tablet(s) PO QHS 201412/29/2015 Inactive losartan 100 mg tablet RxNorm: 081695 1 Tablet(s) PO QD -replac es lisinopril 10/26/2014 04/23/2015 Inactive Levaquin 500 mg tablet RxNorm: 980641 1 Tablet(s) PO QD 10/08/2014 Inactive Levaquin 500 mg tablet RxNorm: 948622 1 Tablet(s) PO QD 10/08/2014 Inactive Diflucan 100 mg tablet RxNorm: 933552 1 Tablet(s) PO QD 10/06/2014 Inactive DuoNeb 0.5 mg-3 mg(2.5 mg base)/3 mL solution for nebulizati on RxNorm: 4064362 3 Milliliter(s) INH QID 09/23/2014 08/09/2016 Inactive Ventolin HFA 90 mcg/actuation aerosol inhaler RxNorm: 534962 2 Puff(s) INH QID as needed for shortness of breath 09/21/2014 12/29/2015 Inactive [AttnRPh: Saving apply/adjudicate RxGRP:SG20 RxBIN:[id number] RxPCN: ID#:[id number]] promethazine-codeine 6.25 mg-10 mg/5 mL syrup RxNorm: 519393 1 Teaspoon(s) PO QHS as needed for cough 09/08/2014 09/20/2014 Inactive prednisone 20 mg tablet RxNorm: 792238 1 Tablet(s) PO BID 09/02/2014 09/08/2014 Inactive promethazine-codeine 6.25 mg-10 mg/5 mL syrup RxNorm: 093083 1 Teaspoon(s) PO Q4H 09/02/2014 09/20/2014 Inactive doxycycline monohydrate 100 mg capsule RxNorm: 713339 1 Capsule (s) PO BID 09/02/2014 09/07/2014 Inactive Tessalon Perles 100 mg capsule RxNorm: 835589 1 Capsule (s) PO TID as needed for cough 08/31/2014 09/20/2014 Inactive Actos 15 mg tablet RxNorm: 182173 1 Tablet(s) PO QAM 1 Tablet(s ) PO QAM 08/26/2014 09/20/2014 Inactive loratadine 10 mg tablet RxNorm: 853557 1 Tablet(s) PO QD for dr saenz 08/26/2014 10/26/2014 Inactive Zithromax 500 mg tablet RxNorm: 386663 1 Tablet(s) PO QD 08/25/2014 1 11/01/2013 Inactive Zithromax 500 mg tablet RxNorm: 500867 1 Tablet(s) PO QD 08/25/2014 1 10/25/2013 Inactive Trazadone 75mg Tablet RxNorm: 1 Tablet(s) PO QHS 08/10/20142018 Inactive Zocor 20 mg tablet RxNorm: 905387 1 Tablet(s) PO QD 08/10/20142014 Inactive Trazadone 75mg Tablet RxNorm: 1 Tablet(s) PO QHS as need ed for sleep 08/10/2014 10/08/2014 Inactive Celexa 40 mg tablet RxNorm: 573178 1 Tablet(s) PO QD 1 Tablet(s) PO QD 1 Tablet(s) PO QD Generic OKAY 06/09/2014 10/06/2014 Inactive Actos 15 mg tablet RxNorm: 697214 1 Tablet(s) PO QAM 05/12/201408/26 Inactive lisinopril 20 mg tablet RxNorm: 170610 1 Tablet(s) PO QD 05/12/2014 0 10/26/2014 Inactive TAKE ONE TABLET BY MOUTH EVERY DAY;Gener ic For:*PRINIVIL 20 MG TABLET [AttnRPh: Saving apply/adjudicate RxGRP:SG20 RxBIN:[id number] RxPCN: ID#:[id number]] hydrocodone 5 mg-acetaminophen 325 mg tablet RxNorm: 533420 1 Tablet(s) PO TID as needed for pain for severe pain 04/30/2014 08/09/2014 Inactive hydrocodone 5 mg-acetaminophen 325 mg tablet RxNorm: 612049 1 Tablet(s) PO TID as needed for pain for severe pain 04/17/2014 04/29/2014 Inactive doxycycline hyclate 100 mg capsule RxNorm: 804611 1 Capsule(s) PO BID 03/05/2014 03/04/2014 Inactive doxycycline hyclate 100 mg capsule RxNorm: 601789 1 Capsule(s) PO BID 03/05/2014 03/14/2014 Inactive albuterol sulfate 2.5 mg/3 mL (0.083 %) solution for n ebulization RxNorm: 919628 Milliliter(s) INH USE 1 VIAL IN NEBULIZE R EVERY FOUR HOURS NEEDED FOR WHEEZING OR SHORTNESS OF BREATH 03/02/2014 06/29/2015 Inactive Generic For:*PROVENTIL 0.83 MG/ML SOLUTN 06/13/2013 2:04:46 PM Celexa 40 mg tablet RxNorm: 259438 1 Tablet(s) PO QD 1 Tablet(s) PO QD replaces lexapro. Generic OKAY 01/13/2014 06/09/2014 Inactive Actos 15 mg tablet RxNorm: 666540 1 Tablet(s) PO QAM 01/07/201405/12 Inactive lisinopril 20 mg tablet RxNorm: 798074 1 Tablet(s) PO QD 12/08/2013 0 05/12/2014 Inactive TAKE ONE TABLET BY MOUTH EVERY DAY;Gener ic For:*PRINIVIL 20 MG TABLET cefdinir 300 mg capsule RxNorm: 067216 2 Capsule(s) PO QD 11/10/2013 08/09/2014 Inactive cefdinir 300 mg capsule RxNorm: 748267 2 Capsule(s) PO QD 10/09/2013 10/15/2013 Inactive Actos 15 mg tablet RxNorm: 506570 1 Tablet(s) PO QAM 10/09/201301/06 Inactive doxycycline hyclate 100 mg capsule RxNorm: 3769056 1 Capsule(s) PO Q12H 09/18/2013 09/27/2013 Inactive omeprazole 20 mg capsule,delayed release RxNorm: 497752 2 Capsule(s) PO QD TAKE 2 CAPSULES BY MOUTH DAILY 09/03/2013 03/01/2014 Inactive Generi c For:*PRILOSEC [address] Celexa 40 mg tablet RxNorm: 326451 1 Tablet(s) PO QD re places lexapro. Generic OKAY 09/03/2013 01/13/2014 Inactive Symbicort 160 mcg-4.5 mcg/actuation HFA aerosol inhaler RxNo rm: 6323927 2 Puff(s) INH BID 08/13/2013 03/23/2014 Inactive metformin 1,000 mg tablet RxNorm: 579198 1 Tablet(s) PO BID 013 08/12/2013 Inactive TAKE ONE TABLET BY MOUTH TWI CE DAILY;Generic For:GLUCOPHAGE 1,000 MG TABLET 08/27/12 Thank you Actos 15 mg tablet RxNorm: 320027 1 Tablet(s) PO QAM 06/23/201310/09 Inactive lisinopril 20 mg tablet RxNorm: 345823 1 Tablet(s) PO QD 06/23/2013 0 12/08/2013 Inactive TAKE ONE TABLET BY MOUTH EVERY DAY;Gener ic For:*PRINIVIL 20 MG TABLET albuterol sulfate 2.5 mg/3 mL (0.083 %) solution for n ebulization RxNorm: 933320 Solution for Nebulization INH USE 1 VIAL IN NEBULIZER EVERY FOUR HOURS NEEDED FOR WHEEZING OR SHORTNESS OF BREATH 06/16/2013 03/01/2014 Inactive Generic For:*PROVENTIL 0.83 MG/ML SOLUTN 06/13/2013 2:04:46 PM prednisone 10 mg tablet RxNorm: 681031 1 Tablet(s) PO BID 04/09/2013 04/13/2013 Inactive AndroGel 1.25 gram/actuation (1%) Transdermal Gel Pump RxNorm: 2 31860 TD 04/09/2013 08/09/2014 Inactive APPLY 4 PUMPS OF GEL AT BEDTIME DIRECTED; (Appended: Controlled substance eRx refill - RxReferenceNumber: [id number]) azithromycin 250 mg tablet RxNorm: 496506 2 Tablet(s) PO QD 013 04/16/2013 Inactive Amaryl 2 mg tablet RxNorm: 148410 1 Tablet(s) PO BID N eeds appt in 1 month (around March 21) 02/18/2013 08/12/2013 Inactive Amaryl 2 mg tablet RxNorm: 952996 1 Tablet(s) PO BID 02/18/201302/17 Inactive metformin 1,000 mg tablet RxNorm: 665655 1 Tablet(s) PO BID 013 07/27/2013 Inactive TAKE ONE TABLET BY MOUTH TWI CE DAILY;Generic For:GLUCOPHAGE 1,000 MG TABLET 08/27/12 Thank you Actos 15 mg tablet RxNorm: 115339 1 Tablet(s) PO QAM 02/04/201306/03 Inactive albuterol sulfate 2.5 mg/3 mL (0.083 %) Neb Solution RxNorm: 739606 1 Unit Dose INH Q4H prn wheezing or shortness of breath 01/30/2013 06/15/2013 Inac tive Medrol (Gui) 4 mg tablets in a dose pack RxNorm: 134249 Tablet(s) PO as directed 01/20/2013 07/15/2013 Inactive cefdinir 300 mg capsule RxNorm: 323993 1 Capsule(s) PO BID anti biotic 01/20/2013 01/29/2013 Inactive lisinopril 20 mg tablet RxNorm: 899297 Tablet(s) PO 01/13/20132012 Inactive TAKE ONE TABLET BY MOUTH EVERY DAY;Gener ic For:*PRINIVIL 20 MG TABLET citalopram 40 mg tablet RxNorm: 209604 Tablet(s) PO 01/13/20132013 Inactive TAKE ONE (1) TABLET BY MOUTH DAILY;Gener ic For:CELEXA 40 MG TABLET omeprazole 20 mg capsule,delayed release RxNorm: 958651 Capsule(s) PO TAKE 2 CAPSULES BY MOUTH DAILY 11/15/2012 09/03/2013 Inactive Generic For:*PRILOSEC [address] amoxicillin 875 mg tablet RxNorm: 410821 1 Tablet(s) PO BID 013 10/28/2012 Inactive Actos 30 mg tablet RxNorm: 714656 1 Tablet(s) PO QD 09/23/20122011 Inactive Actos 15 mg tablet RxNorm: 230254 1 Tablet(s) PO QAM 09/23/201209/22 Inactive Actos 15 mg tablet RxNorm: 149750 1 Tablet(s) PO QAM 09/23/201202/04 Inactive prednisone 20 mg tablet RxNorm: 064329 1 Tablet(s) PO BID 08/28/2012 09/03/2012 Inactive doxycycline hyclate 100 mg tablet RxNorm: 6662436 1 Tablet(s) PO BI D 08/28/2012 09/06/2012 Inactive metformin 1,000 mg tablet RxNorm: 920629 Tablet(s) PO 08/27/201201/22 Inactive TAKE ONE TABLET BY MOUTH TWICE DAILY;Gen lewis For:GLUCOPHAGE 1,000 MG TABLET 08/27/12 Thank you citalopram 40 mg tablet RxNorm: 745682 Tablet(s) PO 07/30/20122012 Inactive TAKE ONE (1) TABLET BY MOUTH DAILY;Gener ic For:CELEXA 40 MG TABLET lisinopril 20 mg tablet RxNorm: 167934 Tablet(s) PO 07/30/20122012 Inactive TAKE ONE TABLET BY MOUTH EVERY DAY;Gener ic For:*PRINIVIL 20 MG TABLET AndroGel 1.25 gram/actuation (1%) Transdermal Gel Pump RxNor m: [id number] Gel in Metered-Dose Pump TD 07/09/2012 04/08/2013 Inactive APPLY 4 PUM PS OF GEL AT BEDTIME DIRECTED;WC (Appended: Controlled substance eRx refill - RxReferenceNumber: [id number]) citalopram 40 mg tablet RxNorm: 343145 Tablet(s) PO 07/01/20122011 Inactive TAKE ONE (1) TABLET BY MOUTH DAILY;Gener ic For:CELEXA 40 MG TABLET metformin 1,000 mg tablet RxNorm: 563937 1 Tablet(s) PO BID 012 08/25/2012 Inactive TAKE 1 TABLET BY MOUTH TWICE DAILY;Generic For:GLUCOPHAGE 1,000 MG TABLET meclizine 25 mg Tab RxNorm: 116728 1 Tablet(s) PO QID prn dizziness 05/09/2012 05/18/2012 Inactive lisinopril 20 mg tablet RxNorm: 659193 Tablet(s) PO QD 04/22/2012 Inactive TAKE ONE (1) TABLET BY MOUTH DAILY;Gener ic For:*PRINIVIL 20 MG TABLET metformin 1,000 mg tablet RxNorm: 728735 Tablet(s) PO 03/19/201212/2011 Inactive TAKE 1 TABLET BY MOUTH TWICE DAILY;Gener ic For:GLUCOPHAGE 1,000 MG TABLET cefdinir 300 mg Cap RxNorm: 043067 1 Capsule(s) PO BID 11/28/2011 Inactive cefdinir 300 mg Cap RxNorm: 678671 1 Capsule(s) PO BID 11/01/2011 Inactive citalopram 40 mg tablet RxNorm: 340490 Tablet(s) PO 10/30/20112011 Inactive TAKE ONE (1) TABLET BY MOUTH DAILY;Gener ic For:CELEXA 40 MG TABLET cefdinir 300 mg Cap RxNorm: 783542 1 Capsule(s) PO BID 10/02/2011 Inactive metformin 1,000 mg Tab RxNorm: 659547 1 Tablet(s) PO BID 09/28/2011 0 01/25/2012 Inactive citalopram 40 mg Tab RxNorm: 445768 1 Tablet(s) PO QD 09/28/201111/2011 Inactive omeprazole 20 mg capsule,delayed release RxNorm: 604321 2 Capsu le(s) PO QD 09/28/2011 03/25/2012 Inactive lisinopril 20 mg Tab RxNorm: 322740 Tablet(s) PO 08/21/2011 04/21/2012 Inactive TAKE ONE (1) TABLET BY MOUTH DAILY;Generic For:*PRINIVIL 20 MG TABLET AndroGel 1.25 gram/actuation (1%) Transdermal Gel Pump RxNor m: [id number] Gel in Metered-dose Pump TD 08/21/2011 07/09/2012 Inactive APPLY 4 PUM PS OF GEL AT BEDTIME DIRECTED (Appended: Controlled substance eRx refill - RxReferenceNumber: [id number]) Lantus Solostar 100 unit/mL (3 mL) Sub-Q Insulin Pen RxNorm: 518569 30 Unit(s) SQ QD 06/20/2011 05/08/2012 Inactive Lantus Solostar 100 unit/mL (3 mL) Sub-Q Insulin Pen RxNorm: 139131 30 Unit(s) SQ QD 06/19/2011 06/19/2011 Inactive metformin 1,000 mg Tab RxNorm: 048398 1 Tablet(s) PO BID 05/12/2011 1 11/09/2010 Inactive citalopram 40 mg Tab RxNorm: 650444 1 Tablet(s) PO QD 03/06/201105/2011 Inactive metformin 1,000 mg Tab RxNorm: 264734 1 Tablet(s) PO BID 12/27/2010 0 04/25/2011 Inactive lisinopril 20 mg Tab RxNorm: 497764 Tablet(s) PO TAKE 1 TABLET BY MOUTH EVERY DAY;Generic For:*PRINIVIL 20 MG TABLET 12/26/2010 08/20/2011 Inactive Ceftin 500 mg Tab RxNorm: 156618 1 Tablet(s) PO BID 12/19/20102010 Inactive omeprazole 20 mg Cap, Delayed Release RxNorm: 183203 2 Capsule( s) PO QD 09/13/2010 03/11/2011 Inactive Byetta 10 mcg/0.04 mL per dose Sub-Q Pen Injector RxNorm: 84 7913 1 Unit Dose SQ BID 09/07/2010 10/06/2010 Inactive Celexa 40 mg tablet RxNorm: 954463 1 Tablet(s) PO QD re places lexapro. Generic OKAY 08/09/2010 02/04/2011 Inactive Actos 30 mg Tab RxNorm: 273974 1 Tablet(s) PO QD 08/09/2010 04/02/2011 Inactive lisinopril 20 mg Tab RxNorm: 538390 1 Tablet(s) PO QD 08/09/201011/22 Inactive metformin 1,000 mg Tab RxNorm: 308065 1 Tablet(s) PO BID 08/09/2010 0 12/06/2010 Inactive Metformin 1,000 mg Tab RxNorm: 312476 1 Tablet(s) PO BID 04/26/2010 0 04/25/2010 Inactive metformin 1,000 mg Tab RxNorm: 580292 1 Tablet(s) PO BID 04/26/2010 1 Inactive Lomotil 2.5 mg-0.025 mg Tab RxNorm: 3693746 1 Tablet(s) PO TID 1-2 TABS THREE TIMES DAILY 04/05/2010 04/07/2010 Inactive Mupirocin 2 % Topical Cream RxNorm: 891767 TOP BID 04/05/201003/25 Inactive lisinopril 20 mg Tab RxNorm: 274050 1 Tablet(s) PO QD 03/29/201010/2009 Inactive Actos 30 mg Tab RxNorm: 023217 1 Tablet(s) PO QD 03/29/2010 07/26/2010 Inactive Lisinopril 20 mg Tab RxNorm: 862486 1 Tablet(s) PO QD 02/27/201001/2010 Inactive Actos 30 mg Tab RxNorm: 861891 1 Tablet(s) PO QD 02/14/2010 03/28/2010 Inactive Celexa 40 mg Tab RxNorm: 923584 1 Tablet(s) PO QD replaces lexapro 01/13/2010 07/11/2010 Inactive Cyclobenzaprine 10 mg Tab RxNorm: 997498 1 Tablet(s) PO TID prn spasm 12/23/2009 01/21/2010 Inactive Cyclobenzaprine 10 mg Tab RxNorm: 947265 1 Tablet(s) PO TID 010 12/22/2009 Inactive Hydrocodone-Acetaminophen 7.5 mg-750 mg Tab RxNorm: 398549 1 Ta blet(s) PO Q4-6H 12/23/2009 12/22/2009 Inactive Levemir FlexTouch U-100 Insulin 100 unit/mL (3 mL) sub cutaneous pen RxNorm: 669210 22 Unit(s) SQ QD No Start Date Active aspirin 81 mg tablet RxNorm: 709916 1 Tablet(s) PO QD No Start Date Active isosorbide mononitrate ER 60 mg tablet,extended release 24 h r RxNorm: 101146 1 Tablet(s) PO QD No Start Date Active amlodipine 5 mg tablet RxNorm: 227439 1 Tablet(s) PO QD No Start Date Active Vitamin D3 1,000 unit tablet RxNorm: 703067 3 Tablet(s) PO QD No St art Date 10/26/2014 Inactive Lexapro 20 mg Tab RxNorm: 829070 1 Tablet(s) PO QD No Start Date 12/24 Inactive loperamide 2 mg tablet RxNorm: 915797 Tablet(s) PO PRN No Start Date 06/07/2016 Inactive Janumet 50 mg-1,000 mg Tab RxNorm: 728256 1 Tablet(s) PO BID No Sta rt Date 01/12/2010 Inactive Levemir U-100 Insulin 100 unit/mL subcutaneous solution RxNo rm: 253872 10 Unit(s) SQ QHS No Start Date 12/08/2018 Inactive Medrol (Gui) 4 mg tablets in a dose pack RxNorm: 026800 Tablet(s) PO Use as directed No Start Date 12/22/2018 Inactive aspirin 325 mg tablet RxNorm: 805471 1 Tablet(s) PO QD No Start Date 08/09/2016 Inactive Efudex 5 % Topical Cream RxNorm: 912070 Application TOP QD prn fto skin lesion No Start Date 08/12/2013 Inactive nitroglycerin 0.4 mg sublingual tablet RxNorm: 707920 Tablet(s) SL as needed No Start Date 12/18/2018 Inactive levofloxacin 500 mg tablet RxNorm: 023486 1 Tablet(s) PO QD No Star t Date 08/06/2018 Inactive ferrous sulfate 325 mg (65 mg iron) tablet RxNorm: 972220 1 Tab let(s) PO QHS No Start Date 04/16/2017 Inactive fluorouracil 5 % topical cream RxNorm: 628472 1 TOP No Start James e 08/06/2018 Inactive Vitamin D3 1,000 unit capsule RxNorm: 494886 1 Capsule(s) PO QD No Start Date 02/03/2018 Inactive Hydrocodone-Acetaminophen 7.5 mg-750 mg Tab RxNorm: 776521 1 Ta blet(s) PO PRN No Start Date 08/09/2014 Inactive pantoprazole 40 mg tablet,delayed release RxNorm: 964425 1 Tabl et(s) PO QD No Start Date 01/22/2018 Inactive omeprazole 20 mg Cap, Delayed Release RxNorm: 439077 2 Capsule( s) PO QD No Start Date 09/12/2010 Inactive DuoNeb 0.5 mg-3 mg(2.5 mg base)/3 mL solution for nebulizati on RxNorm: 9708174 INH Q4H as needed No Start Date 10/22/2018 Inactive Lyrica 75 mg capsule RxNorm: 833336 2 Capsule(s) PO QHS No Start Da te 03/09/2019 Inactive isosorbide mononitrate ER 30 mg tablet,extended release 24 h r RxNorm: 346283 1 Tablet(s) PO QD No Start Date 12/08/2018 Inactive Tradjenta 5 mg tablet RxNorm: 1842493 1 Tablet(s) PO QD No Start Da te 08/09/2016 Inactive Tudorza Pressair 400 mcg/actuation breath activated RxNorm: 8700809 1 Puff(s) INH BID No Start Date 06/17/2017 Inactive Lantus Solostar 100 unit/mL (3 mL) Sub-Q Insulin Pen RxNorm: 993202 30 Unit(s) SQ QD No Start Date 06/18/2011 Inactive Requip 4 mg tablet RxNorm: 169206 1 Tablet(s) PO BID No Start Date Inactive Symbicort 160 mcg-4.5 mcg/actuation HFA aerosol inhaler RxNo rm: 4959169 2 Puff(s) INH BID No Start Date 07/11/2018 Inactive atorvastatin 40 mg tablet RxNorm: 865801 1 Tablet(s) PO QD No Start Date 12/18/2018 Inactive tramadol 50 mg tablet RxNorm: 490977 1 Tablet(s) PO TID as needed for pain (take alone with two extra strength tylenol) No Start Date 01/16/2019 Inactive Symbicort 160 mcg-4.5 mcg/actuation HFA aerosol inhaler RxNo rm: 7893674 2 Puff(s) INH BID No Start Date 08/12/2013 Inactive Vitamin D3 5,000 unit tablet RxNorm: 626786 1 Tablet(s) PO QD No St art Date 05/08/2019 Inactive albuterol sulfate 2.5 mg/3 mL (0.083 %) Neb Solution RxNorm: 926483 1 Unit Dose INH Q4H prn wheezing or shortness of breath No Start Date 01/29/2013 Inac tive Ranexa 500 mg tablet,extended release RxNorm: 347338 1 Tablet(s ) PO BID No Start Date 02/03/2018 Inactive Advair Diskus 500 mcg-50 mcg/dose powder for inhalation RxNo rm: 8350577 1 Puff(s) INH BID No Start Date 08/09/2016 Inactive clopidogrel 75 mg tablet RxNorm: 033616 1 Tablet(s) PO QD No Start Date 05/01/2018 Inactive metformin 1,000 mg Tab RxNorm: 006177 1 Tablet(s) PO BID No Start D ate 08/12/2013 Inactive Silenor 3 mg tablet RxNorm: 496678 1 Tablet(s) PO QHS No Start Date 0 04/04/2017 Inactive Medrol (Gui) 4 mg tablets in a dose pack RxNorm: 050020 Tablet(s) PO as directed No Start Date 01/19/2013 Inactive Requip 4 mg tablet RxNorm: 024279 1 Tablet(s) PO BID No Start Date Inactive clopidogrel 75 mg tablet RxNorm: 063927 1 Tablet(s) PO QD No Start Date 02/03/2018 Inactive Tradjenta 5 mg tablet RxNorm: 7047227 1 Tablet(s) PO QD No Start Da te 02/03/2018 Inactive ProAir HFA 90 mcg/Actuation Aerosol Inhaler RxNorm: 730229 2 Pu ff(s) INH PRN No Start Date 07/09/2012 Inactive Tessalon Perles 100 mg capsule RxNorm: 672623 1 Capsule (s) PO TID as needed for cough No Start Date 08/30/2014 Inactive ferrous sulfate 325 mg (65 mg iron) tablet RxNorm: 873783 1 Tab let(s) PO QD No Start Date 05/08/2019 Inactive pioglitazone 15 mg tablet RxNorm: 585513 1 Tablet(s) PO QD No Start Date 09/20/2014 Inactive Lexapro Oral RxNorm: Oral No Start Date 12/13/2009 Inactive Breo Ellipta 100 mcg-25 mcg/dose powder for inhalation RxNor m: 0334824 1 Puff(s) INH BID No Start Date 05/31/2015 Inactive Tylenol Extra Strength 500 mg tablet RxNorm: 434717 2 T ablet(s) PO QHS along with ropironole No Start Date 12/18/2018 Inactive tramadol 50 mg tablet RxNorm: 880670 1 Tablet(s) PO QID as need ed for pain No Start Date 12/24/2018 Inactive cyclobenzaprine 10 mg Tab RxNorm: 223243 Oral No Start Date 12/22 Inactive Levemir FlexTouch 100 unit/mL (3 mL) subcutaneous insulin pe n RxNorm: 094283 10 Unit(s) SQ QD No Start Date 03/08/2016 Inactive amlodipine 5 mg tablet RxNorm: 525485 1 Tablet(s) PO QD No Start Da te 08/09/2016 Inactive Novolog 100 unit/mL subcutaneous solution RxNorm: 318467 10 Uni t(s) SQ AC No Start Date 08/12/2017 Inactive Levemir FlexTouch 100 unit/mL (3 mL) subcutaneous insulin pe n RxNorm: 812598 25 Unit(s) SQ QPM No Start Date 08/06/2018 Inactive Farxiga 5 mg tablet RxNorm: 9497694 1 Tablet(s) PO QD No Start Date 0 10/05/2014 Inactive DuoNeb 0.5 mg-3 mg(2.5 mg base)/3 mL solution for nebulizati on RxNorm: 3449607 inhalation No Start Date 09/23/2014 Inactive Doxycycline 100 mg Cap RxNorm: 113218 1 Capsule(s) PO BID No Start Date 12/18/2010 Inactive Vitamin B12 1000mcg Tablet RxNorm: 1 Tablet(s) PO QD No Start Date 02/03/2018 Inactive Hydrocodone-Acetaminophen 7.5 mg-750 mg Tab RxNorm: 650974 1 Ta blet(s) PO Q6-8H No Start Date 12/22/2009 Inactive Xigduo XR 5 mg-1,000 mg tablet,extended release RxNorm: 1593 833 1 Tablet(s) PO QD No Start Date 05/31/2015 Inactive cyanocobalamin (vit B-12) 1,000 mcg/mL injection solution Rx Norm: 601875 1 injection weekly for 4 weeks 1 Milliliter(s) Inj No Start Date 05/08/2019 Inactive AndroGel 1.25 g/Actuation (1%) Transdermal Gel Pump RxNorm: 6676720 TD Apply 4pumps daily No Start Date 08/21/2011 Inactive Actoplus MET 15 mg-850 mg Tab RxNorm: 896462 1 Tablet(s) PO BID No Start Date 12/18/2010 Inactive Amaryl 2 mg tablet RxNorm: 148312 1 Tablet(s) PO BID No Start Date Inactive Levemir FlexTouch 100 unit/mL (3 mL) subcutaneous insulin pe n RxNorm: 362732 20 Unit(s) SQ QD No Start Date 06/12/2016 Inactive Symbicort 160 mcg-4.5 mcg/actuation HFA aerosol inhaler RxNo rm: 9578774 2 Puff(s) INH BID No Start Date 02/03/2018 Inactive Symbicort 160 mcg-4.5 mcg/Actuation Inhalation HFA Aer osol Inhaler RxNorm: 5168895 2 INH BID No Start Date 12/18/2010 Inactive Farxiga 5 mg tablet RxNorm: 6541511 1 Tablet(s) PO QD No Start Date 0 03/01/2015 Inactive magnesium oxide 400 mg (241.3 mg magnesium) tablet RxNorm: 1 56450 1 Tablet(s) PO QHS No Start Date 05/08/2019 Inactive Tradjenta 5 mg tablet RxNorm: 0014190 2 Tablet(s) PO QD No Start Da te 07/21/2015 Inactive Levemir FlexTouch U-100 Insulin 100 unit/mL (3 mL) sub cutaneous pen RxNorm: 221475 40 Unit(s) SQ QD No Start Date 08/06/2018 Inactive Sinemet CR 50 mg-200 mg tablet,extended release RxNorm: 8343 41 1 Tablet(s) PO QHS No Start Date 09/24/2017 Inactive metoprolol tartrate 25 mg tablet RxNorm: 653018 1/2 Tablet(s) P O BID No Start Date 02/03/2018 Inactive Requip 4 mg tablet RxNorm: 138371 1 Tablet(s) PO QHS No Start Date Inactive Ventolin HFA 90 mcg/actuation aerosol inhaler RxNorm: 122873 2 Puff(s) INH Q4H as needed No Start Date 04/22/2018 Inactive B12 5,000 mcg-100 mcg sublingual lozenge RxNorm: 692814 IM as d irected No Start Date 05/08/2019 Inactive ropinirole 1 mg tablet RxNorm: 145726 1 Tablet(s) PO QHS No Start D ate 08/06/2018 Inactive Percocet 5 mg-325 mg tablet RxNorm: 5667749 1 Tablet(s) PO Q4H as needed for pain (Dr Rizzo) No Start Date 10/22/2018 Inactive hydrocodone 5 mg-acetaminophen 325 mg tablet RxNorm: 741831 1 Tablet(s) PO TID as needed for pain for severe pain No Start Date 04/16/2014 Inactive scopolamine 1.5 mg 72 hr Transderm Patch RxNorm: 163803 Application TD Q72H for dizziness No Start Date 08/12/2013 Inactive ipratropium-albuterol 0.5 mg-3 mg(2.5 mg base)/3 mL ne bulization soln RxNorm: 8913493 1 Unit Dose INH Q4H No Start Date 01/16/2019 Inactive Medication Administered No Medication Administered data Immunizations Vaccine Codes Date Status Influenza CVX: 135 08/07/2019 Complete Pneumococcal CVX: 33 07/24/2017 Complete Influenza CVX: 135 06/13/2016 Complete Pneumococcal CVX: 133 06/13/2016 Complete Influenza CVX: 141 07/10/2012 Pneumovax Unknown 07/10/2012 Results Observation Observation Code Item Item Code Result Date S vice Location COMPLETE BLOOD COUNT [id number] WBC 5.5 10e9/L 06/17/20 19 Unknown COMPLETE BLOOD COUNT [id number] RBC 3.92 10e12/L 2018 Unknown COMPLETE BLOOD COUNT [id number] HEMOGLOBIN 10.9 g/dL 06/17/20 19 Unknown COMPLETE BLOOD COUNT [id number] HEMATOCRIT 34.8 % 06/17/20 19 Unknown COMPLETE BLOOD COUNT [id number] MCV 88.8 fL 9 Unknown COMPLETE BLOOD COUNT 5616503 MCH 27.8 pg 9 Unknown COMPLETE BLOOD COUNT 7995217 MCHC 31.3 g/dL 9 Unknown COMPLETE BLOOD COUNT 8463132 PLATELET COUNT 239 10e9/L Unknown COMPLETE BLOOD COUNT 9981346 Mean Plt Volume 10.0 fL Unknown COMPLETE BLOOD COUNT 9605476 Neut Auto 68.0 % 9 Unknown COMPLETE BLOOD COUNT 4582742 Lymph Auto 14.8 % 06/17/20 19 Unknown COMPLETE BLOOD COUNT 8838994 [place] Auto 13.1 % 9 Unknown COMPLETE BLOOD COUNT 4085855 RDW 14.7 % 9 Unknown COMPLETE BLOOD COUNT 1317898 Eos Auto 3.6 % 9 Unknown COMPLETE BLOOD COUNT 0273636 Baso Auto 0.5 % 9 Unknown COMPLETE BLOOD COUNT 0080878 Neutrophil Abs 3.74 10e9/L Unknown COMPLETE BLOOD COUNT 4894289 Lymphocyte Abs 0.81 10e9/L Unknown COMPLETE BLOOD COUNT 9759414 Monocyte Abs 0.72 10e9/L 05/26 Unknown COMPLETE BLOOD COUNT 7535511 Eosinophil Abs 0.20 10e9/L Unknown COMPLETE BLOOD COUNT 5305967 RDW-SD 46.4 fL 9 Unknown COMPLETE BLOOD COUNT 7331181 Basophil Abs 0.03 10e9/L 05/26 Unknown IRON 12138 Iron 36 ug/dL 06/17/2019 Unknown VITAMIN B 12 06114 VITAMIN B12 540 pg/mL 06/17/2019 Unkn own GFR CALC 7451994 GFR Non Afr Amr 59 mL/min 06/17/2019 Unk nown GFR CALC 5739424 GFR Afr Amr >60 mL/min 06/17/2019 Unknow n ERYTHROCYTE SEDIMENTATION RATE 52081 Sed Rate 34 mm/hr 06/17/2019 Unknown THYROID STIMULATING HORMONE 39780 TSH 2.217 uIU/mL 06/17/2019 Unknown COMPREHENSIVE METABOLIC 10776 AST 12 U/L 2018 Unknown COMPREHENSIVE METABOLIC 98279 ALT 11 U/L 2018 Unknown COMPREHENSIVE METABOLIC 02882 BUN 17 mg/dL 2018 Unknown COMPREHENSIVE METABOLIC 84489 ALBUMIN 3.9 g/dL 2018 Unknown COMPREHENSIVE METABOLIC 69773 CHLORIDE 103 mmol/L 06/17 Unknown COMPREHENSIVE METABOLIC 79644 Bili Total 0.4 mg/dL 06/17 Unknown COMPREHENSIVE METABOLIC 47092 ALK PHOS 51 U/L 2018 Unknown COMPREHENSIVE METABOLIC 04283 SODIUM 140 mmol/L 06/17 Unknown COMPREHENSIVE METABOLIC 52495 CREATININE 1.20 mg/dL 05/26 Unknown COMPREHENSIVE METABOLIC 16732 CALCIUM 8.9 mg/dL 2018 Unknown COMPREHENSIVE METABOLIC 25424 POTASSIUM 4.5 mmol/L 06/17 Unknown COMPREHENSIVE METABOLIC 08872 Total Protein 6.1 g/dL Unknown COMPREHENSIVE METABOLIC 80312 Glucose 108 mg/dL 2018 Unknown COMPREHENSIVE METABOLIC 00186 Bicarbonate 27 mmol/L 05/26 Unknown COMPREHENSIVE METABOLIC 44298 AGAP 10 mmol/L 2018 Unknown FERRITIN 05770 FERRITIN 35.5 ng/mL 05/08/2019 Unknown VITAMIN D TOTAL (25 HYDROXY) 94704 Vitamin D 25 OH 26.0 ng/mL 05/08/2019 Unknown GLYCOSYLATED HEMOGLOBIN TEST 41488 Hgb A1c 02571-9 8.2 % 0 05/08/2019 Unknown MEAN GLUC 0932742 Calc Mean Gluc 189 mg/dL 05/08/2019 Unkn own GFR CALC 6014864 GFR Non Afr Amr >60 mL/min 05/08/2019 Un known GFR CALC 5392656 GFR Afr Amr >60 mL/min 05/08/2019 Unknow n VITAMIN B 12 30915 VITAMIN B12 197 pg/mL 05/08/2019 Unkn own IRON 75631 Iron 34 ug/dL 05/08/2019 Unknown COMPLETE BLOOD COUNT 6637515 WBC 6.9 10e9/L 05/08/20 19 Unknown COMPLETE BLOOD COUNT 4747006 RBC 3.95 10e12/L 2018 Unknown COMPLETE BLOOD COUNT 8931014 HEMOGLOBIN 11.1 g/dL 05/08/20 19 Unknown COMPLETE BLOOD COUNT 0809978 HEMATOCRIT 34.9 % 05/08/20 19 Unknown COMPLETE BLOOD COUNT 4452131 MCV 88.4 fL 9 Unknown COMPLETE BLOOD COUNT 8113575 MCH 28.1 pg 9 Unknown COMPLETE BLOOD COUNT 0452735 MCHC 31.8 g/dL 9 Unknown COMPLETE BLOOD COUNT 1699534 PLATELET COUNT 217 10e9/L Unknown COMPLETE BLOOD COUNT 0143513 Mean Plt Volume 9.6 fL Unknown COMPLETE BLOOD COUNT 2900580 Neut Auto 77.6 % 9 Unknown COMPLETE BLOOD COUNT 7264820 Lymph Auto 10.7 % 05/08/20 19 Unknown COMPLETE BLOOD COUNT 0930166 [place] Auto 10.4 % 9 Unknown COMPLETE BLOOD COUNT 4532582 RDW 14.7 % 9 Unknown COMPLETE BLOOD COUNT 4175783 Eos Auto 1.2 % 9 Unknown COMPLETE BLOOD COUNT 0383651 Baso Auto 0.1 % 9 Unknown COMPLETE BLOOD COUNT 5724734 Neutrophil Abs 5.35 10e9/L Unknown COMPLETE BLOOD COUNT 9854652 Lymphocyte Abs 0.74 10e9/L Unknown COMPLETE BLOOD COUNT 4485750 Monocyte Abs 0.72 10e9/L 04/24 Unknown COMPLETE BLOOD COUNT 3894414 Eosinophil Abs 0.08 10e9/L Unknown COMPLETE BLOOD COUNT 6924617 RDW-SD 46.6 fL 9 Unknown COMPLETE BLOOD COUNT 9822444 Basophil Abs 0.01 10e9/L 04/24 Unknown COMPREHENSIVE METABOLIC 49751 AST 13 U/L 2018 Unknown COMPREHENSIVE METABOLIC 83978 ALT 9 U/L 2018 Unknown COMPREHENSIVE METABOLIC 55295 BUN 18 mg/dL 2018 Unknown COMPREHENSIVE METABOLIC 08801 ALBUMIN 4.3 g/dL 2018 Unknown COMPREHENSIVE METABOLIC 22655 CHLORIDE 99 mmol/L 2018 Unknown COMPREHENSIVE METABOLIC 09179 Bili Total 0.4 mg/dL 05/08 Unknown COMPREHENSIVE METABOLIC 86978 ALK PHOS 48 U/L 2018 Unknown COMPREHENSIVE METABOLIC 70143 SODIUM 137 mmol/L 05/08 Unknown COMPREHENSIVE METABOLIC 71933 CREATININE 0.79 mg/dL 04/24 Unknown COMPREHENSIVE METABOLIC 44444 CALCIUM 9.5 mg/dL 2018 Unknown COMPREHENSIVE METABOLIC 08138 POTASSIUM 4.0 mmol/L 05/08 Unknown COMPREHENSIVE METABOLIC 46389 Total Protein 6.3 g/dL Unknown COMPREHENSIVE METABOLIC 55760 Glucose 232 mg/dL 2018 Unknown COMPREHENSIVE METABOLIC 36373 Bicarbonate 27 mmol/L 04/24 Unknown COMPREHENSIVE METABOLIC 83053 AGAP 11 mmol/L 2018 Unknown GLYCOSYLATED HEMOGLOBIN TEST 66362 Hgb A1c 63662-1 8.9 % 0 12/10/2018 Unknown MEAN GLUC 9870564 Calc Mean Gluc 209 mg/dL 12/10/2018 Unkn own LIPID GROUP 69221 Cholesterol 145 mg/dL 12/09/2018 Unkno wn LIPID GROUP 49316 Triglyceride 235 mg/dL 12/09/2018 Unkn own LIPID GROUP 20559 HDL CHOLESTEROL 40 mg/dL 12/09/2018 U nknown LIPID GROUP 30548 Chol/HDL Ratio 3.62 ratio 12/09/2018 U nknown LIPID GROUP 66290 NON-HDL Chol 105 mg/dL 12/09/2018 Unkn own LIPID GROUP 30803 LDL Cholesterol 58 mg/dL 12/09/2018 U nknown THYROID STIMULATING HORMONE 29943 TSH 1.071 uIU/mL 12/09/2018 Unknown GFR CALC 7307243 GFR Non Afr Amr >60 mL/min 12/09/2018 Un known GFR CALC 2922336 GFR Afr Amr >60 mL/min 12/09/2018 Unknow n COMPLETE BLOOD COUNT 3618611 WBC 7.6 10e9/L 12/10/19 19 Unknown COMPLETE BLOOD COUNT 6680788 RBC 3.97 10e12/L 2018 Unknown COMPLETE BLOOD COUNT 2607937 HEMOGLOBIN 11.4 g/dL 12/10/19 19 Unknown COMPLETE BLOOD COUNT 2819494 HEMATOCRIT 35.8 % 12/10/19 19 Unknown COMPLETE BLOOD COUNT 3602518 MCV 90.2 fL 9 Unknown COMPLETE BLOOD COUNT 7388186 MCH 28.7 pg 9 Unknown COMPLETE BLOOD COUNT 2133683 MCHC 31.8 g/dL 9 Unknown COMPLETE BLOOD COUNT 5923953 PLATELET COUNT 200 10e9/L Unknown COMPLETE BLOOD COUNT 1661136 Mean Plt Volume 10.1 fL Unknown COMPLETE BLOOD COUNT 3719479 Neut Auto 79.0 % 9 Unknown COMPLETE BLOOD COUNT 6071963 Lymph Auto 8.3 % 12/10/19 19 Unknown COMPLETE BLOOD COUNT 6639479 [place] Auto 10.8 % 9 Unknown COMPLETE BLOOD COUNT 7265369 RDW 14.6 % 9 Unknown COMPLETE BLOOD COUNT 7383398 Eos Auto 1.5 % 9 Unknown COMPLETE BLOOD COUNT 3554974 Baso Auto 0.4 % 9 Unknown COMPLETE BLOOD COUNT 8804987 Neutrophil Abs 6.00 10e9/L Unknown COMPLETE BLOOD COUNT 1610312 Lymphocyte Abs 0.63 10e9/L Unknown COMPLETE BLOOD COUNT 0976330 Monocyte Abs 0.82 10e9/L 11/22 Unknown COMPLETE BLOOD COUNT 9549621 Eosinophil Abs 0.11 10e9/L Unknown COMPLETE BLOOD COUNT 3041322 RDW-SD 46.9 fL 9 Unknown COMPLETE BLOOD COUNT 9503163 Basophil Abs 0.03 10e9/L 11/22 Unknown COMPREHENSIVE METABOLIC 04464 AST 11 U/L 2018 Unknown COMPREHENSIVE METABOLIC 64180 ALT 11 U/L 2018 Unknown COMPREHENSIVE METABOLIC 44141 BUN 21 mg/dL 2018 Unknown COMPREHENSIVE METABOLIC 28531 ALBUMIN 4.7 g/dL 2018 Unknown COMPREHENSIVE METABOLIC 37871 CHLORIDE 99 mmol/L 2018 Unknown COMPREHENSIVE METABOLIC 29038 Bili Total 0.4 mg/dL 12/09 Unknown COMPREHENSIVE METABOLIC 95251 ALK PHOS 73 U/L 2018 Unknown COMPREHENSIVE METABOLIC 40605 SODIUM 137 mmol/L 12/09 Unknown COMPREHENSIVE METABOLIC 93143 CREATININE 1.12 mg/dL 11/22 Unknown COMPREHENSIVE METABOLIC 16615 CALCIUM 9.4 mg/dL 2018 Unknown COMPREHENSIVE METABOLIC 90780 POTASSIUM 4.2 mmol/L 12/09 Unknown COMPREHENSIVE METABOLIC 24670 Total Protein 6.8 g/dL Unknown COMPREHENSIVE METABOLIC 25405 Glucose 194 mg/dL 2018 Unknown COMPREHENSIVE METABOLIC 47118 Bicarbonate 30 mmol/L 11/22 Unknown COMPREHENSIVE METABOLIC 22166 AGAP 8 mmol/L 2018 Unknown FREE T4 81378 T4 Free 0.86 ng/dL 12/09/2018 Unknown COMPLETE BLOOD COUNT 8272703 WBC 6.8 10e9/L 04/17/20 17 Unknown COMPLETE BLOOD COUNT 8861399 RBC 3.86 10e12/L 2016 Unknown COMPLETE BLOOD COUNT 2248722 HEMOGLOBIN 9.8 g/dL 04/17/20 17 Unknown COMPLETE BLOOD COUNT 2071020 HEMATOCRIT 31.1 % 04/17/20 17 Unknown COMPLETE BLOOD COUNT 4927363 MCV 80.6 fL 7 Unknown COMPLETE BLOOD COUNT 6434578 MCH 25.4 pg 7 Unknown COMPLETE BLOOD COUNT 5875876 MCHC 31.5 g/dL 7 Unknown COMPLETE BLOOD COUNT 0295440 PLATELET COUNT 247 10e9/L Unknown COMPLETE BLOOD COUNT 6753933 Mean Plt Volume 9.7 fL Unknown COMPLETE BLOOD COUNT 0326422 Neut Auto 74.1 % 7 Unknown COMPLETE BLOOD COUNT 9791993 Lymph Auto 12.0 % 04/17/20 17 Unknown COMPLETE BLOOD COUNT 9969366 [place] Auto 10.8 % 7 Unknown COMPLETE BLOOD COUNT 4417991 RDW 15.9 % 7 Unknown COMPLETE BLOOD COUNT 4013160 Eos Auto 2.5 % 7 Unknown COMPLETE BLOOD COUNT 0606890 Baso Auto 0.6 % 7 Unknown COMPLETE BLOOD COUNT 1975912 Neutrophil Abs 5.04 10e9/L Unknown COMPLETE BLOOD COUNT 0267217 Lymphocyte Abs 0.82 10e9/L Unknown COMPLETE BLOOD COUNT 2739726 Monocyte Abs 0.73 10e9/L 03/25 Unknown COMPLETE BLOOD COUNT 2919112 Eosinophil Abs 0.17 10e9/L Unknown COMPLETE BLOOD COUNT 2453567 RDW-SD 44.4 fL 7 Unknown COMPLETE BLOOD COUNT 1455721 Basophil Abs 0.04 10e9/L 03/25 Unknown MEAN GLUC 5023845 Calc Mean Gluc 223 mg/dL 04/17/2017 Unkn own GFR CALC 1514736 GFR Non Afr Amr >60 mL/min 04/17/2017 Un known GFR CALC 5811849 GFR Afr Amr >60 mL/min 04/17/2017 Unknow n GLYCOSYLATED HEMOGLOBIN TEST 02058 Hgb A1c 24826-9 9.4 % 0 04/17/2017 Unknown IRON 85597 Iron 37 ug/dL 04/17/2017 Unknown VITAMIN B 12 83209 VITAMIN B12 280 pg/mL 04/17/2017 Unkn own THYROID STIMULATING HORMONE 87340 TSH 2.481 uIU/mL 04/17/2017 Unknown COMPREHENSIVE METABOLIC 82094 AST 13 U/L 2016 Unknown COMPREHENSIVE METABOLIC 95877 ALT 12 U/L 2016 Unknown COMPREHENSIVE METABOLIC 11652 BUN 18 mg/dL 2016 Unknown COMPREHENSIVE METABOLIC 62929 ALBUMIN 4.7 g/dL 2016 Unknown COMPREHENSIVE METABOLIC 02394 CHLORIDE 103 mmol/L 04/17 Unknown COMPREHENSIVE METABOLIC 28977 Bili Total 0.4 mg/dL 04/17 Unknown COMPREHENSIVE METABOLIC 29128 ALK PHOS 49 U/L 2016 Unknown COMPREHENSIVE METABOLIC 37461 SODIUM 140 mmol/L 04/17 Unknown COMPREHENSIVE METABOLIC 63665 CREATININE 1.14 mg/dL 03/25 Unknown COMPREHENSIVE METABOLIC 05569 CALCIUM 9.4 mg/dL 2016 Unknown COMPREHENSIVE METABOLIC 33312 POTASSIUM 4.4 mmol/L 04/17 Unknown COMPREHENSIVE METABOLIC 95445 Total Protein 6.7 g/dL Unknown COMPREHENSIVE METABOLIC 60271 Glucose 266 mg/dL 2016 Unknown COMPREHENSIVE METABOLIC 55490 Bicarbonate 25 mmol/L 03/25 Unknown COMPREHENSIVE METABOLIC 88702 AGAP 12 mmol/L 2016 Unknown FERRITIN 09435 FERRITIN 10.0 ng/mL 04/17/2017 Unknown COMPLETE BLOOD COUNT 7316041 WBC 6.8 10e9/L 12/22/19 17 Unknown COMPLETE BLOOD COUNT 6894792 RBC 3.70 10e12/L 2016 Unknown COMPLETE BLOOD COUNT 2648567 HEMOGLOBIN 8.0 g/dL 12/22/19 17 Unknown COMPLETE BLOOD COUNT 8607733 HEMATOCRIT 26.7 % 12/22/19 17 Unknown COMPLETE BLOOD COUNT 5249440 MCV 72.2 fL 7 Unknown COMPLETE BLOOD COUNT 6492337 MCH 21.6 pg 7 Unknown COMPLETE BLOOD COUNT 2553315 MCHC 30.0 g/dL 7 Unknown COMPLETE BLOOD COUNT 6904076 PLATELET COUNT 290 10e9/L Unknown COMPLETE BLOOD COUNT 0832739 Mean Plt Volume 9.3 fL Unknown COMPLETE BLOOD COUNT 7418138 Neut Auto 80.2 % 7 Unknown COMPLETE BLOOD COUNT 8462685 Lymph Auto 9.8 % 12/22/19 17 Unknown COMPLETE BLOOD COUNT 7569304 [place] Auto 8.1 % 7 Unknown COMPLETE BLOOD COUNT 1848832 RDW 17.4 % 7 Unknown COMPLETE BLOOD COUNT 9439208 Eos Auto 1.5 % 7 Unknown COMPLETE BLOOD COUNT 4956851 Baso Auto 0.4 % 7 Unknown COMPLETE BLOOD COUNT 1679041 Neutrophil Abs 5.45 10e9/L Unknown COMPLETE BLOOD COUNT 5238201 Lymphocyte Abs 0.67 10e9/L Unknown COMPLETE BLOOD COUNT 2985241 Monocyte Abs 0.55 10e9/L 11/24 Unknown COMPLETE BLOOD COUNT 1065958 Eosinophil Abs 0.10 10e9/L Unknown COMPLETE BLOOD COUNT 4372970 RDW-SD 44.1 fL 7 Unknown COMPLETE BLOOD COUNT 1742076 Basophil Abs 0.03 10e9/L 11/24 Unknown COMPLETE BLOOD COUNT 7294807 WBC 7.6 10e9/L 12/13/19 17 Unknown COMPLETE BLOOD COUNT 1578355 RBC 3.71 10e12/L 2016 Unknown COMPLETE BLOOD COUNT 9331981 HEMOGLOBIN 8.0 g/dL 12/13/19 17 Unknown COMPLETE BLOOD COUNT 5306849 HEMATOCRIT 27.3 % 12/13/19 17 Unknown COMPLETE BLOOD COUNT 7310828 MCV 73.6 fL 7 Unknown COMPLETE BLOOD COUNT 3348557 MCH 21.6 pg 7 Unknown COMPLETE BLOOD COUNT 9058321 MCHC 29.3 g/dL 7 Unknown COMPLETE BLOOD COUNT 7215903 PLATELET COUNT 330 10e9/L Unknown COMPLETE BLOOD COUNT 0288990 Mean Plt Volume 9.7 fL Unknown COMPLETE BLOOD COUNT 2534768 Neut Auto 73.2 % 7 Unknown COMPLETE BLOOD COUNT 1333320 Lymph Auto 14.5 % 12/13/19 17 Unknown COMPLETE BLOOD COUNT 5289835 [place] Auto 10.5 % 7 Unknown COMPLETE BLOOD COUNT 2621067 RDW 17.3 % 7 Unknown COMPLETE BLOOD COUNT 2123545 Eos Auto 1.3 % 7 Unknown COMPLETE BLOOD COUNT 2872204 Baso Auto 0.5 % 7 Unknown COMPLETE BLOOD COUNT 4862803 Neutrophil Abs 5.56 10e9/L Unknown COMPLETE BLOOD COUNT 6885386 Lymphocyte Abs 1.10 10e9/L Unknown COMPLETE BLOOD COUNT 1269427 Monocyte Abs 0.80 10e9/L 11/23 Unknown COMPLETE BLOOD COUNT 0100430 Eosinophil Abs 0.10 10e9/L Unknown COMPLETE BLOOD COUNT 0406590 RDW-SD 45.2 fL 7 Unknown COMPLETE BLOOD COUNT 6174318 Basophil Abs 0.04 10e9/L 11/23 Unknown IRON 10140 Iron 69 ug/dL 03/09/2016 Unknown VITAMIN B 12 79440 VITAMIN B12 311 pg/mL 03/09/2016 Unkn own MEAN GLUC 8447479 Mean Glucose 260 mg/dL 03/07/2016 Unknow n GLYCOSYLATED HEMOGLOBIN TEST 03186 Hgb A1c 14301-5 10.7 % 0 03/07/2016 Unknown COMPREHENSIVE METABOLIC 90862 AST 14 U/L 2015 Unknown COMPREHENSIVE METABOLIC 12730 ALT 21 U/L 2015 Unknown COMPREHENSIVE METABOLIC 31735 BUN 27 mg/dL 2015 Unknown COMPREHENSIVE METABOLIC 11091 ALBUMIN 4.5 g/dL 2015 Unknown COMPREHENSIVE METABOLIC 77388 CHLORIDE 101 mmol/L 03/06 Unknown COMPREHENSIVE METABOLIC 71492 Bili Total 0.4 mg/dL 03/06 Unknown COMPREHENSIVE METABOLIC 56191 ALK PHOS 49 U/L 2015 Unknown COMPREHENSIVE METABOLIC 03669 SODIUM 136 mmol/L 03/06 Unknown COMPREHENSIVE METABOLIC 50174 CREATININE 1.16 mg/dL 02/22 Unknown COMPREHENSIVE METABOLIC 94648 CALCIUM 9.9 mg/dL 2015 Unknown COMPREHENSIVE METABOLIC 13381 POTASSIUM 4.5 mmol/L 03/06 Unknown COMPREHENSIVE METABOLIC 49372 Total Protein 6.7 g/dL Unknown COMPREHENSIVE METABOLIC 83701 Glucose 245 mg/dL 2015 Unknown COMPREHENSIVE METABOLIC 56794 Bicarbonate 24 mmol/L 02/22 Unknown COMPREHENSIVE METABOLIC 39430 AGAP 11 mmol/L 2015 Unknown THYROID STIMULATING HORMONE 39359 TSH 0.775 uIU/mL 03/06/2016 Unknown TESTOSTERONE TOTAL 83672 Testos Total 96 ng/dL 03/06/20 16 Unknown LIPID GROUP 37714 Cholesterol 146 mg/dL 03/06/2016 Unkno wn LIPID GROUP 66089 Triglyceride 249 mg/dL 03/06/2016 Unkn own LIPID GROUP 32201 HDL CHOLESTEROL 46 mg/dL 03/06/2016 U nknown LIPID GROUP 26449 Chol/HDL Ratio 3.17 ratio 03/06/2016 U nknown LIPID GROUP 98463 NON-HDL Chol 100 mg/dL 03/06/2016 Unkn own LIPID GROUP 45600 LDL Cholesterol 50 mg/dL 03/06/2016 U nknown COMPLETE BLOOD COUNT 5734040 WBC 11.2 10e9/L 016 Unknown COMPLETE BLOOD COUNT 7319121 RBC 3.94 10e12/L 2015 Unknown COMPLETE BLOOD COUNT 7530616 HEMOGLOBIN 11.4 g/dL 03/06/20 16 Unknown COMPLETE BLOOD COUNT 2438380 HEMATOCRIT 33.7 % 03/06/20 16 Unknown COMPLETE BLOOD COUNT 7645540 MCV 85.5 fL 6 Unknown COMPLETE BLOOD COUNT 2307574 MCH 28.9 pg 6 Unknown COMPLETE BLOOD COUNT 3443537 MCHC 33.8 g/dL 6 Unknown COMPLETE BLOOD COUNT 4670923 PLATELET COUNT 204 10e9/L Unknown COMPLETE BLOOD COUNT 4119424 Mean Plt Volume 10.1 fL Unknown COMPLETE BLOOD COUNT 5858409 Neut Auto 85.9 % 6 Unknown COMPLETE BLOOD COUNT 7981185 Lymph Auto 6.8 % 03/06/20 16 Unknown COMPLETE BLOOD COUNT 1171361 [place] Auto 7.0 % 6 Unknown COMPLETE BLOOD COUNT 4683625 RDW 13.7 % 6 Unknown COMPLETE BLOOD COUNT 9054747 Eos Auto 0.1 % 6 Unknown COMPLETE BLOOD COUNT 9236607 Baso Auto 0.2 % 6 Unknown COMPLETE BLOOD COUNT 2352907 Neutrophil Abs 9.62 10e9/L Unknown COMPLETE BLOOD COUNT 3381859 Lymphoctye Abs 0.76 10e9/L Unknown COMPLETE BLOOD COUNT 5692898 Monocyte Abs 0.78 10e9/L 02/22 Unknown COMPLETE BLOOD COUNT 7255941 Eosinophil Abs 0.01 10e9/L Unknown COMPLETE BLOOD COUNT 1634708 RDW-SD 41.9 fL 6 Unknown COMPLETE BLOOD COUNT 7482578 Basophil Abs 0.02 10e9/L 02/22 Unknown FREE T4 32369 T4 Free 0.89 ng/dL 03/06/2016 Unknown GFR CALC 8804250 GFR Non Afr Amr >60 mL/min 03/06/2016 Un known GFR CALC 3875020 GFR Afr Amr >60 mL/min 03/06/2016 Unknow n PSA EQUIMOLAR JONATAN 99961 PSA Total 0.78 ng/mL 6 Unknown FREE T4 10296 FREE T4 0.90 NG/DL 07/01/2015 Unknown LIPID GROUP 92899 HDL TEST 44 MG/DL 07/01/2015 Unknown LIPID GROUP 70850 TRIG 303 MG/DL 07/01/2015 Unknown LIPID GROUP 53056 TEST LDL 56 MG/DL 07/01/2015 Unknown LIPID GROUP 47058 CHOL 161 MG/DL 07/01/2015 Unknown LIPID GROUP 71568 RCHOL/HDL 3.66 RATIO 07/01/2015 Unknow n LIPID GROUP 31168 NON-HDL CH 117 MG/DL 07/01/2015 Unknow n THYROID STIMULATING HORMONE 61173 TSH 1.783 uIU/ML 07/01/2015 Unknown COMPLETE BLOOD COUNT 4852530 WBC 6.6 10e9/L 07/01/20 15 Unknown COMPLETE BLOOD COUNT 2505537 RBC 4.18 10e12/L 2014 Unknown COMPLETE BLOOD COUNT 7590988 HGB 12.2 g/dL 5 Unknown COMPLETE BLOOD COUNT 4515510 HCT DET 37.0 % 5 Unknown COMPLETE BLOOD COUNT 9973206 MCV 88.5 fL 5 Unknown COMPLETE BLOOD COUNT 2543361 MCH 29.2 pg 5 Unknown COMPLETE BLOOD COUNT 7241326 MCHC 33.0 g/dL 5 Unknown COMPLETE BLOOD COUNT 2845265 PLT 224 10e9/L 07/01/20 15 Unknown COMPLETE BLOOD COUNT 1506906 MPV 10.4 fL 5 Unknown COMPLETE BLOOD COUNT 9264653 SUSIE % 72.6 % 5 Unknown COMPLETE BLOOD COUNT 2098896 LY % 14.1 % 5 Unknown COMPLETE BLOOD COUNT 8257377 MON % 10.2 % 5 Unknown COMPLETE BLOOD COUNT 3699634 EOS % 2.6 % 5 Unknown COMPLETE BLOOD COUNT 8214486 BASO % 0.5 % 5 Unknown COMPLETE BLOOD COUNT 6497937 RDW 14.1 % 5 Unknown COMPLETE BLOOD COUNT 7557187 ABS SUSIE 4.79 10e9/L 015 Unknown COMPLETE BLOOD COUNT 8579292 ABS LYMPH 0.93 10e9/L 015 Unknown COMPLETE BLOOD COUNT 1063454 ABS MONO 0.67 10e9/L 015 Unknown COMPLETE BLOOD COUNT 9745255 ABS EOS 0.17 10e9/L 015 Unknown COMPLETE BLOOD COUNT 0831016 ABS BASO 0.03 10e9/L 015 Unknown COMPLETE BLOOD COUNT 1138233 RDW-SD 43.9 fL 5 Unknown PSA EQUIMOLAR JONATAN 45343 PSA EQ 0.73 NG/ML 5 Unknown COMPREHENSIVE METABOLIC 22920 AST 24 U/L 2014 Unknown COMPREHENSIVE METABOLIC 42410 ALT 26 IU/L 2014 Unknown COMPREHENSIVE METABOLIC 83032 BUN 26 MG/DL 2014 Unknown COMPREHENSIVE METABOLIC 31337 ALBUMIN 4.6 GM/DL 2014 Unknown COMPREHENSIVE METABOLIC 73634 CHLORIDE 102 MMOL/L 06/01 Unknown COMPREHENSIVE METABOLIC 91361 BILI TOT 0.5 MG/DL 2014 Unknown COMPREHENSIVE METABOLIC 56897 ALK PHOS 56 U/L 2014 Unknown COMPREHENSIVE METABOLIC 93053 SODIUM 136 MMOL/L 06/01 Unknown COMPREHENSIVE METABOLIC 67949 CREATININE 1.16 MG/DL 04/2015 Unknown COMPREHENSIVE METABOLIC 90150 CALCIUM 9.8 MG/DL 2014 Unknown COMPREHENSIVE METABOLIC 15232 POTASSIUM 4.6 MMOL/L 06/01 Unknown COMPREHENSIVE METABOLIC 79690 PROT TOT 7.4 GM/DL 2014 Unknown COMPREHENSIVE METABOLIC 19232 Glucose 223 MG/DL 2014 Unknown COMPREHENSIVE METABOLIC 60147 BICARB 27 MMOL/L 2014 Unknown COMPREHENSIVE METABOLIC 42648 ANION GAP 7 MEQ/L 2014 Unknown GFR CALC 1251314 GFR AA >60 ML/MIN 06/01/2015 Unknown GFR CALC 9125901 GFR NON-AA >60 ML/MIN 06/01/2015 Unknown GLYCOSYLATED HEMOGLOBIN TEST 72751 A1C HPLC 62990-9 8.9 % 0 06/01/2015 Unknown GFR CALC 8742604 GFR AA >60 ML/MIN 02/25/2015 Unknown GFR CALC 1588870 GFR NON-AA >60 ML/MIN 02/25/2015 Unknown COMPREHENSIVE METABOLIC 27279 AST 24 U/L 2014 Unknown COMPREHENSIVE METABOLIC 39878 ALT 25 IU/L 2014 Unknown COMPREHENSIVE METABOLIC 13051 BUN 14 MG/DL 2014 Unknown COMPREHENSIVE METABOLIC 53326 ALBUMIN 4.5 GM/DL 2014 Unknown COMPREHENSIVE METABOLIC 59872 CHLORIDE 99 MMOL/L 2014 Unknown COMPREHENSIVE METABOLIC 47152 BILI TOT 0.5 MG/DL 2014 Unknown COMPREHENSIVE METABOLIC 65399 ALK PHOS 48 U/L 2014 Unknown COMPREHENSIVE METABOLIC 82429 SODIUM 136 MMOL/L 02/25 Unknown COMPREHENSIVE METABOLIC 69659 CREATININE 0.97 MG/DL 12/2014 Unknown COMPREHENSIVE METABOLIC 53336 CALCIUM 9.9 MG/DL 2014 Unknown COMPREHENSIVE METABOLIC 53529 POTASSIUM 4.4 MMOL/L 02/25 Unknown COMPREHENSIVE METABOLIC 18508 PROT TOT 7.1 GM/DL 2014 Unknown COMPREHENSIVE METABOLIC 36852 Glucose 171 MG/DL 2014 Unknown COMPREHENSIVE METABOLIC 34468 BICARB 25 MMOL/L 2014 Unknown COMPREHENSIVE METABOLIC 08713 ANION GAP 12 MEQ/L 2014 Unknown PROTEIN/CREAT URINE WITH RATIO 08692|86140 PROT R U 19 MG/D L 08/27/2014 Unknown PROTEIN/CREAT URINE WITH RATIO 24984|01851 CREAT R U 111 MG/ DL 08/27/2014 Unknown PROTEIN/CREAT URINE WITH RATIO 84571|51109 XRATIO P/C 171 MG /G 08/27/2014 Unknown MICROALBUMIN URINE RANDOM 95838 MICRL MG/L 34.7 MG/L 12/2013 Unknown MICROALBUMIN URINE RANDOM 20390 XM.ALB/CRE 32.7 MG/GCR 1 10/28/2013 Unknown MICROALBUMIN URINE RANDOM 13805 CREAT MG/D 106 MG/DL 12/2013 Unknown MICROALBUMIN URINE RANDOM 67866 CRE/100 1.06 G/L 12/2013 Unknown COMPLETE BLOOD COUNT 7451038 WBC 7.1 10e9/L 08/05/20 14 Unknown COMPLETE BLOOD COUNT [id number] RBC 4.35 10e12/L 2013 Unknown COMPLETE BLOOD COUNT [id number] HGB 12.9 g/dL 4 Unknown COMPLETE BLOOD COUNT [id number] HCT DET 39.4 % 4 Unknown COMPLETE BLOOD COUNT [id number] MCV 90.6 fL 4 Unknown COMPLETE BLOOD COUNT [id number] MCH 29.7 pg 4 Unknown COMPLETE BLOOD COUNT [id number] MCHC 32.7 g/dL 4 Unknown COMPLETE BLOOD COUNT [id number] PLT 240 10e9/L 08/05/20 14 Unknown COMPLETE BLOOD COUNT [id number] MPV 10.3 fL 4 Unknown COMPLETE BLOOD COUNT [id number] SUSIE % 70.0 % 4 Unknown COMPLETE BLOOD COUNT [id number] LY % 16.4 % 4 Unknown COMPLETE BLOOD COUNT [id number] MON % 9.2 % 4 Unknown COMPLETE BLOOD COUNT 3575384 EOS % 3.8 % 4 Unknown COMPLETE BLOOD COUNT 8237170 BASO % 0.6 % 4 Unknown COMPLETE BLOOD COUNT 6533754 RDW 13.4 % 4 Unknown COMPLETE BLOOD COUNT [id number] ABS SUSIE 4.97 10e9/L 014 Unknown COMPLETE BLOOD COUNT [id number] ABS LYMPH 1.16 10e9/L 014 Unknown COMPLETE BLOOD COUNT [id number] ABS MONO 0.65 10e9/L 014 Unknown COMPLETE BLOOD COUNT [id number] ABS EOS 0.27 10e9/L 014 Unknown COMPLETE BLOOD COUNT [id number] ABS BASO 0.04 10e9/L 014 Unknown COMPLETE BLOOD COUNT [id number] RDW-SD 43.3 fL 4 Unknown FREE T4 39189 FREE T4 1.02 NG/DL 08/05/2014 Unknown GFR CALC [id number] GFR AA >60 ML/MIN 08/05/2014 Unknown GFR CALC 8393865 GFR NON-AA >60 ML/MIN 08/05/2014 Unknown GLYCOSYLATED HEMOGLOBIN TEST 03934 A1C HPLC 72899-8 7.7 % 1 10/05/2013 Unknown COMPREHENSIVE METABOLIC 50433 AST 19 U/L 2013 Unknown COMPREHENSIVE METABOLIC 75651 ALT 21 IU/L 2013 Unknown COMPREHENSIVE METABOLIC 64328 BUN 25 MG/DL 2013 Unknown COMPREHENSIVE METABOLIC 44248 ALBUMIN 4.6 GM/DL 2013 Unknown COMPREHENSIVE METABOLIC 78497 CHLORIDE 103 MMOL/L 08/05 Unknown COMPREHENSIVE METABOLIC 02650 BILI TOT 0.4 MG/DL 2013 Unknown COMPREHENSIVE METABOLIC 46349 ALK PHOS 45 U/L 2013 Unknown COMPREHENSIVE METABOLIC 55607 SODIUM 138 MMOL/L 08/05 Unknown COMPREHENSIVE METABOLIC 29558 CREATININE 1.01 MG/DL 07/25 Unknown COMPREHENSIVE METABOLIC 60361 CALCIUM 9.8 MG/DL 2013 Unknown COMPREHENSIVE METABOLIC 17461 POTASSIUM 4.7 MMOL/L 08/05 Unknown COMPREHENSIVE METABOLIC 36256 PROT TOT 7.0 GM/DL 2013 Unknown COMPREHENSIVE METABOLIC 17077 Glucose 145 MG/DL 2013 Unknown COMPREHENSIVE METABOLIC 51851 BICARB 27 MMOL/L 2013 Unknown COMPREHENSIVE METABOLIC 83337 ANION GAP 8 MEQ/L 2013 Unknown THYROID STIMULATING HORMONE 23808 TSH 1.922 uIU/ML 08/05/2014 Unknown LIPID GROUP 02293 HDL TEST 47 MG/DL 08/05/2014 Unknown LIPID GROUP 28929 TRIG 224 MG/DL 08/05/2014 Unknown LIPID GROUP 31112 TEST LDL 125 MG/DL 08/05/2014 Unknown LIPID GROUP 54396 CHOL 217 MG/DL 08/05/2014 Unknown LIPID GROUP 25320 RCHOL/HDL 4.62 RATIO 08/05/2014 Unknow n LIPID GROUP 26674 NON-HDL CH 170 MG/DL 08/05/2014 Unknow n MYCOPLASMA ANTIBODY, IFA [id number] MYCO G IFA 1:256 03/24 Unknown MYCOPLASMA ANTIBODY, IFA [id number] MYCO M IFA <1:10 03/24 Unknown MYCOPLASMA ANTIBODY, IFA [id number] MYCO INTER SEE BELO 03/24 Unknown COMPLETE BLOOD COUNT [id number] WBC 8.3 10e9/L 04/09/20 13 Unknown COMPLETE BLOOD COUNT [id number] RBC 4.61 10e12/L 2012 Unknown COMPLETE BLOOD COUNT 6106118 HGB 13.9 g/dL 3 Unknown COMPLETE BLOOD COUNT [id number] HCT DET 41.2 % 3 Unknown COMPLETE BLOOD COUNT 8563178 MCV 89.4 fL 3 Unknown COMPLETE BLOOD COUNT [id number] MCH 30.2 pg 3 Unknown COMPLETE BLOOD COUNT [id number] MCHC 33.7 g/dL 3 Unknown COMPLETE BLOOD COUNT [id number] PLT 249 10e9/L 04/09/20 13 Unknown COMPLETE BLOOD COUNT [id number] MPV 9.8 fL 3 Unknown COMPLETE BLOOD COUNT [id number] SUSIE % 65.9 % 3 Unknown COMPLETE BLOOD COUNT [id number] LY % 19.8 % 3 Unknown COMPLETE BLOOD COUNT [id number] MON % 10.8 % 3 Unknown COMPLETE BLOOD COUNT [id number] EOS % 3.0 % 3 Unknown COMPLETE BLOOD COUNT 1545012 BASO % 0.5 % 3 Unknown COMPLETE BLOOD COUNT [id number] RDW 14.0 % 3 Unknown COMPLETE BLOOD COUNT [id number] ABS SUSIE 5.47 10e9/L 013 Unknown COMPLETE BLOOD COUNT [id number] ABS LYMPH 1.64 10e9/L 013 Unknown COMPLETE BLOOD COUNT [id number] ABS MONO 0.90 10e9/L 013 Unknown COMPLETE BLOOD COUNT [id number] ABS EOS 0.25 10e9/L 013 Unknown COMPLETE BLOOD COUNT [id number] ABS BASO 0.04 10e9/L 013 Unknown COMPLETE BLOOD COUNT 9059243 RDW-SD 45.0 fL 3 Unknown URIC ACID 40041 URIC ACID 5.3 MG/DL 02/12/2013 Unknown FREE T4 43705 FREE T4 1.09 NG/DL 02/11/2013 Unknown COMPLETE BLOOD COUNT [id number] WBC 6.3 10e9/L 02/12/20 13 Unknown COMPLETE BLOOD COUNT [id number] RBC 4.29 10e12/L 2012 Unknown COMPLETE BLOOD COUNT [id number] HGB 13.1 g/dL 3 Unknown COMPLETE BLOOD COUNT [id number] HCT DET 39.7 % 3 Unknown COMPLETE BLOOD COUNT 4994755 MCV 92.5 fL 3 Unknown COMPLETE BLOOD COUNT [id number] MCH 30.5 pg 3 Unknown COMPLETE BLOOD COUNT 3499489 MCHC 33.0 g/dL 3 Unknown COMPLETE BLOOD COUNT [id number] PLT 247 10e9/L 02/12/20 13 Unknown COMPLETE BLOOD COUNT [id number] MPV 10.0 fL 3 Unknown COMPLETE BLOOD COUNT [id number] SUSIE % 73.4 % 3 Unknown COMPLETE BLOOD COUNT 4254402 LY % 13.5 % 3 Unknown COMPLETE BLOOD COUNT [id number] MON % 9.4 % 3 Unknown COMPLETE BLOOD COUNT [id number] EOS % 2.9 % 3 Unknown COMPLETE BLOOD COUNT [id number] BASO % 0.8 % 3 Unknown COMPLETE BLOOD COUNT [id number] RDW 13.8 % 3 Unknown COMPLETE BLOOD COUNT [id number] ABS SUSIE 4.62 10e9/L 013 Unknown COMPLETE BLOOD COUNT [id number] ABS LYMPH 0.85 10e9/L 013 Unknown COMPLETE BLOOD COUNT [id number] ABS MONO 0.59 10e9/L 013 Unknown COMPLETE BLOOD COUNT [id number] ABS EOS 0.18 10e9/L 013 Unknown COMPLETE BLOOD COUNT [id number] ABS BASO 0.05 10e9/L 013 Unknown COMPLETE BLOOD COUNT 8177605 RDW-SD 45.7 fL 3 Unknown HEMOGLOBIN A1C (GLYCOSYLATED) 6261984 A1C HPLC 40569-9 7.5 % 02/11/2013 Unknown THYROID STIMULATING HORMONE 46257 TSH 1.466 uIU/ML 02/11/2013 Unknown VITAMIN B 12 FOLIC ACID 67525|32990 VIT B 12 625 PG/ML 01/23 Unknown VITAMIN B 12 FOLIC ACID 39858|73180 FOLIC ACID 15.6 NG/ML Unknown COMPREHENSIVE METABOLIC 83006 AST 18 U/L 2012 Unknown COMPREHENSIVE METABOLIC 62515 ALT 21 IU/L 2012 Unknown COMPREHENSIVE METABOLIC 00112 BUN 25 MG/DL 2012 Unknown COMPREHENSIVE METABOLIC 61577 ALBUMIN 4.6 GM/DL 2012 Unknown COMPREHENSIVE METABOLIC 47055 CHLORIDE 103 MMOL/L 02/11 Unknown COMPREHENSIVE METABOLIC 59401 BILI TOT 0.3 MG/DL 2012 Unknown COMPREHENSIVE METABOLIC 81004 ALK PHOS 53 U/L 2012 Unknown COMPREHENSIVE METABOLIC 17470 SODIUM 136 MMOL/L 02/11 Unknown COMPREHENSIVE METABOLIC 80110 CREATININE 1.16 MG/DL 01/23 Unknown COMPREHENSIVE METABOLIC 68417 CALCIUM 10.0 MG/DL 02/11 Unknown COMPREHENSIVE METABOLIC 83150 POTASSIUM 4.9 MMOL/L 02/11 Unknown COMPREHENSIVE METABOLIC 32098 PROT TOT 7.0 GM/DL 2012 Unknown COMPREHENSIVE METABOLIC 23593 Glucose 192 MG/DL 2012 Unknown COMPREHENSIVE METABOLIC 56297 BICARB 26 MMOL/L 2012 Unknown COMPREHENSIVE METABOLIC 42711 ANION GAP 7 MEQ/L 2012 Unknown GFR CALC 4384932 GFR AA >60 ML/MIN 02/11/2013 Unknown GFR CALC 8230969 GFR NON-AA >60 ML/MIN 02/11/2013 Unknown C-REACTIVE PROTEIN (CRP) QUANT 01899 CRP 2.7 MG/DL 02/11/2013 Unknown GFR CALC 9797752 GFR AA >60 ML/MIN 09/19/2012 Unknown GFR CALC 7562465 GFR NON-AA >60 ML/MIN 09/19/2012 Unknown HEMOGLOBIN A1C (GLYCOSYLATED) 6477945 A1C HPLC 50578-8 7.2 % 09/19/2012 Unknown COMPREHENSIVE METABOLIC 19893 AST 13 U/L 2011 Unknown COMPREHENSIVE METABOLIC 84044 ALT 17 IU/L 2011 Unknown COMPREHENSIVE METABOLIC 21268 BUN 25 MG/DL 2011 Unknown COMPREHENSIVE METABOLIC 84276 ALBUMIN 4.5 GM/DL 2011 Unknown COMPREHENSIVE METABOLIC 07423 CHLORIDE 104 MMOL/L 09/19 Unknown COMPREHENSIVE METABOLIC 35537 BILI TOT 0.3 MG/DL 2011 Unknown COMPREHENSIVE METABOLIC 44285 ALK PHOS 43 U/L 2011 Unknown COMPREHENSIVE METABOLIC 18140 SODIUM 139 MMOL/L 09/19 Unknown COMPREHENSIVE METABOLIC 88410 CREATININE 1.10 MG/DL 08/25 Unknown COMPREHENSIVE METABOLIC 44998 CALCIUM 9.8 MG/DL 2011 Unknown COMPREHENSIVE METABOLIC 14450 POTASSIUM 4.8 MMOL/L 09/19 Unknown COMPREHENSIVE METABOLIC 81602 PROT TOT 6.5 GM/DL 2011 Unknown COMPREHENSIVE METABOLIC 63124 Glucose 148 MG/DL 2011 Unknown COMPREHENSIVE METABOLIC 18119 BICARB 25 MMOL/L 2011 Unknown COMPREHENSIVE METABOLIC 83876 ANION GAP 10 MEQ/L 2011 Unknown LIPID GROUP 87885 HDL TEST 44 MG/DL 09/19/2012 Unknown LIPID GROUP 65157 TRIG 318 MG/DL 09/19/2012 Unknown LIPID GROUP 05452 TEST LDL 100 MG/DL 09/19/2012 Unknown LIPID GROUP 14573 CHOL 208 MG/DL 09/19/2012 Unknown LIPID GROUP 12550 RCHOL/HDL 4.73 RATIO 09/19/2012 Unknow n FREE T4 61233 FREE T4 0.87 NG/DL 05/06/2012 Unknown GLYCOSYLATED HEMOGLOBIN TEST 15237 A1C HPLC 80953-6 6.4 % 0 05/06/2012 Unknown LIPID GROUP 37622 HDL TEST 44 MG/DL 05/06/2012 Unknown LIPID GROUP 59391 TRIG 177 MG/DL 05/06/2012 Unknown LIPID GROUP 45145 TEST LDL 113 MG/DL 05/06/2012 Unknown LIPID GROUP 24334 CHOL 192 MG/DL 05/06/2012 Unknown LIPID GROUP 23463 RCHOL/HDL 4.36 RATIO 05/06/2012 Unknow n THYROID STIMULATING HORMONE 26621 TSH 1.151 uIU/ML 05/06/2012 Unknown COMPLETE BLOOD COUNT 37041 WBC 7.8 10e9/L 05/06/20 12 Unknown COMPLETE BLOOD COUNT 40902 RBC 4.31 10e12/L 2011 Unknown COMPLETE BLOOD COUNT 05876 HGB 12.8 g/dL 2 Unknown COMPLETE BLOOD COUNT 67201 HCT DET 39.1 % 2 Unknown COMPLETE BLOOD COUNT 76342 MCV 90.7 fL 2 Unknown COMPLETE BLOOD COUNT 53382 MCH 29.7 pg 2 Unknown COMPLETE BLOOD COUNT 47402 MCHC 32.7 g/dL 2 Unknown COMPLETE BLOOD COUNT 49641 PLT 207 10e9/L 05/06/20 12 Unknown COMPLETE BLOOD COUNT 80818 MPV 10.2 fL 2 Unknown COMPLETE BLOOD COUNT 24584 SUSIE % 74.2 % 2 Unknown COMPLETE BLOOD COUNT 96988 LY % 12.8 % 2 Unknown COMPLETE BLOOD COUNT 59693 MON % 11.0 % 2 Unknown COMPLETE BLOOD COUNT 84296 EOS % 1.7 % 2 Unknown COMPLETE BLOOD COUNT 87456 BASO % 0.3 % 2 Unknown COMPLETE BLOOD COUNT 34673 RDW 13.7 % 2 Unknown COMPLETE BLOOD COUNT 59385 ABS SUSIE 5.79 10e9/L 012 Unknown COMPLETE BLOOD COUNT 99170 ABS LYMPH 1.00 10e9/L 012 Unknown COMPLETE BLOOD COUNT 67050 ABS MONO 0.86 10e9/L 012 Unknown COMPLETE BLOOD COUNT 84368 ABS EOS 0.13 10e9/L 012 Unknown COMPLETE BLOOD COUNT 56120 ABS BASO 0.02 10e9/L 012 Unknown COMPLETE BLOOD COUNT 06722 RDW-SD 44.4 fL 2 Unknown COMPREHENSIVE METABOLIC 75041 AST 13 U/L 2011 Unknown COMPREHENSIVE METABOLIC 18635 ALT 14 IU/L 2011 Unknown COMPREHENSIVE METABOLIC 06043 BUN 17 MG/DL 2011 Unknown COMPREHENSIVE METABOLIC 40816 ALBUMIN 4.5 GM/DL 2011 Unknown COMPREHENSIVE METABOLIC 42470 CHLORIDE 101 MMOL/L 05/06 Unknown COMPREHENSIVE METABOLIC 39789 BILI TOT 0.5 MG/DL 2011 Unknown COMPREHENSIVE METABOLIC 53260 ALK PHOS 42 U/L 2011 Unknown COMPREHENSIVE METABOLIC 52322 SODIUM 141 MMOL/L 05/06 Unknown COMPREHENSIVE METABOLIC 52405 CREATININE 1.02 MG/DL 04/24 Unknown COMPREHENSIVE METABOLIC 90446 CALCIUM 9.7 MG/DL 2011 Unknown COMPREHENSIVE METABOLIC 79211 POTASSIUM 4.6 MMOL/L 05/06 Unknown COMPREHENSIVE METABOLIC 32818 PROT TOT 6.5 GM/DL 2011 Unknown COMPREHENSIVE METABOLIC 67932 Glucose 139 MG/DL 2011 Unknown COMPREHENSIVE METABOLIC 53045 BICARB 29 MMOL/L 2011 Unknown COMPREHENSIVE METABOLIC 02674 ANION GAP 11 MEQ/L 2011 Unknown GFR CALC 5761028 GFR AA >60 ML/MIN 05/06/2012 Unknown GFR CALC 6008754 GFR NON-AA 54.0L ML/MIN 05/06/2012 Unkno wn GLYCOSYLATED HEMOGLOBIN TEST 64381 A1C HPLC 33433-6 6.6 % 1 09/30/2010 Unknown FREE T4 14383 FREE T4 1.00 NG/DL 07/26/2011 Unknown LIPID GROUP 72585 HDL TEST 40 MG/DL 07/26/2011 Unknown LIPID GROUP 90214 TRIG 136 MG/DL 07/26/2011 Unknown LIPID GROUP 98530 TEST LDL 126 MG/DL 07/26/2011 Unknown LIPID GROUP 19885 CHOL 193 MG/DL 07/26/2011 Unknown LIPID GROUP 29037 RCHOL/HDL 4.83 RATIO 07/26/2011 Unknow n COMPREHENSIVE METABOLIC 14357 AST 15 U/L 2010 Unknown COMPREHENSIVE METABOLIC 66581 ALT 13 IU/L 2010 Unknown COMPREHENSIVE METABOLIC 42792 BUN 17 MG/DL 2010 Unknown COMPREHENSIVE METABOLIC 18853 ALBUMIN 4.4 GM/DL 2010 Unknown COMPREHENSIVE METABOLIC 61546 CHLORIDE 102 MMOL/L 07/26 Unknown COMPREHENSIVE METABOLIC 41758 BILI TOT 0.5 MG/DL 2010 Unknown COMPREHENSIVE METABOLIC 43320 ALK PHOS 54 U/L 2010 Unknown COMPREHENSIVE METABOLIC 45003 SODIUM 138 MMOL/L 07/26 Unknown COMPREHENSIVE METABOLIC 52266 CREATININE 0.95 MG/DL 10/2010 Unknown COMPREHENSIVE METABOLIC 29967 CALCIUM 9.3 MG/DL 2010 Unknown COMPREHENSIVE METABOLIC 74613 POTASSIUM 4.3 MMOL/L 07/26 Unknown COMPREHENSIVE METABOLIC 35386 PROT TOT 6.7 GM/DL 2010 Unknown COMPREHENSIVE METABOLIC 71976 Glucose 116 MG/DL 2010 Unknown COMPREHENSIVE METABOLIC 43381 BICARB 28 MMOL/L 2010 Unknown COMPREHENSIVE METABOLIC 01604 ANION GAP 8 MEQ/L 2010 Unknown PSA EQUIMOLAR JONATAN 91359 PSA EQ 1.01 NG/ML 1 Unknown COMPLETE BLOOD COUNT 47567 WBC 6.4 10e9/L 07/26/20 11 Unknown COMPLETE BLOOD COUNT 11672 RBC 4.43 10e12/L 2010 Unknown COMPLETE BLOOD COUNT 85980 HGB 13.2 g/dL 1 Unknown COMPLETE BLOOD COUNT 07155 HCT DET 39.3 % 1 Unknown COMPLETE BLOOD COUNT 17272 MCV 88.7 fL 1 Unknown COMPLETE BLOOD COUNT 55793 MCH 29.8 pg 1 Unknown COMPLETE BLOOD COUNT 71527 MCHC 33.6 g/dL 1 Unknown COMPLETE BLOOD COUNT 15066 PLT 226 10e9/L 07/26/20 11 Unknown COMPLETE BLOOD COUNT 48512 MPV 9.9 fL 1 Unknown COMPLETE BLOOD COUNT 70766 SUSIE % 65.4 % 1 Unknown COMPLETE BLOOD COUNT 26004 LY % 19.7 % 1 Unknown COMPLETE BLOOD COUNT 20890 MON % 10.8 % 1 Unknown COMPLETE BLOOD COUNT 28473 EOS % 3.6 % 1 Unknown COMPLETE BLOOD COUNT 46858 BASO % 0.5 % 1 Unknown COMPLETE BLOOD COUNT 85437 RDW 13.2 % 1 Unknown COMPLETE BLOOD COUNT 78019 ABS SUSIE 4.19 10e9/L 011 Unknown COMPLETE BLOOD COUNT 89241 ABS LYMPH 1.26 10e9/L 011 Unknown COMPLETE BLOOD COUNT 63485 ABS MONO 0.69 10e9/L 011 Unknown COMPLETE BLOOD COUNT 01605 ABS EOS 0.23 10e9/L 011 Unknown COMPLETE BLOOD COUNT 23050 ABS BASO 0.03 10e9/L 011 Unknown COMPLETE BLOOD COUNT 26879 RDW-SD 41.7 fL 1 Unknown THYROID STIMULATING HORMONE 16482 TSH 1.345 uIU/ML 07/26/2011 Unknown GFR CALC 0448177 GFR AA >60 ML/MIN 07/26/2011 Unknown GFR CALC 5198647 GFR NON-AA >60 ML/MIN 07/26/2011 Unknown BRAIN NATRIURETIC PEPTIDE(BNP) 29407 BRAIN PEP 23 pg/mL 01/19/2011 Unknown CANCEL 6310093 CANCEL FOOTNOTE 01/18/2011 Unknown TESTOSTERONE TOTAL 78499 TESTOS TO 138 NG/DL 12/19/2010 Unknown COMPLETE BLOOD COUNT 36691 WBC 8.4 10e9/L 12/08/19 11 Unknown COMPLETE BLOOD COUNT 54794 RBC 4.40 10e12/L 2010 Unknown COMPLETE BLOOD COUNT 66679 HGB 13.3 g/dL 1 Unknown COMPLETE BLOOD COUNT 37348 HCT DET 39.8 % 1 Unknown COMPLETE BLOOD COUNT 90314 MCV 90.5 fL 1 Unknown COMPLETE BLOOD COUNT 22887 MCH 30.2 pg 1 Unknown COMPLETE BLOOD COUNT 35980 MCHC 33.4 g/dL 1 Unknown COMPLETE BLOOD COUNT 60462 PLT 201 10e9/L 12/08/19 11 Unknown COMPLETE BLOOD COUNT 92859 MPV 10.6 fL 1 Unknown COMPLETE BLOOD COUNT 93127 SUSIE % 72.5 % 1 Unknown COMPLETE BLOOD COUNT 70408 LY % 14.8 % 1 Unknown COMPLETE BLOOD COUNT 21841 MON % 10.6 % 1 Unknown COMPLETE BLOOD COUNT 74660 EOS % 1.7 % 1 Unknown COMPLETE BLOOD COUNT 24429 BASO % 0.4 % 1 Unknown COMPLETE BLOOD COUNT 88021 RDW 13.7 % 1 Unknown COMPLETE BLOOD COUNT 39179 ABS SUSIE 6.09 10e9/L 011 Unknown COMPLETE BLOOD COUNT 46685 ABS LYMPH 1.24 10e9/L 011 Unknown COMPLETE BLOOD COUNT 17910 ABS MONO 0.89 10e9/L 011 Unknown COMPLETE BLOOD COUNT 21619 ABS EOS 0.14 10e9/L 011 Unknown COMPLETE BLOOD COUNT 32118 ABS BASO 0.03 10e9/L 011 Unknown COMPLETE BLOOD COUNT 28456 RDW-SD 44.0 fL 1 Unknown LIPID GROUP 78802 HDL TEST 40 MG/DL 12/07/2010 Unknown LIPID GROUP 19965 TRIG 383 MG/DL 12/07/2010 Unknown LIPID GROUP 29719 TEST LDL 82 MG/DL 12/07/2010 Unknown LIPID GROUP 39842 CHOL 199 MG/DL 12/07/2010 Unknown LIPID GROUP 28756 RCHOL/HDL 4.98 RATIO 12/07/2010 Unknow n GFR CALC 8636003 GFR AA >60 ML/MIN 12/07/2010 Unknown GFR CALC 2930450 GFR NON-AA >60 ML/MIN 12/07/2010 Unknown COMPREHENSIVE METABOLIC 55395 AST 29 U/L 2010 Unknown COMPREHENSIVE METABOLIC 68684 ALT 39 IU/L 2010 Unknown COMPREHENSIVE METABOLIC 81820 BUN 17 MG/DL 2010 Unknown COMPREHENSIVE METABOLIC 37141 ALBUMIN 4.9 GM/DL 2010 Unknown COMPREHENSIVE METABOLIC 66879 CHLORIDE 100 MMOL/L 12/07 Unknown COMPREHENSIVE METABOLIC 45868 BILI TOT 0.3 MG/DL 2010 Unknown COMPREHENSIVE METABOLIC 82056 ALK PHOS 53 U/L 2010 Unknown COMPREHENSIVE METABOLIC 63627 SODIUM 137 MMOL/L 12/07 Unknown COMPREHENSIVE METABOLIC 73675 CREATININE 0.98 MG/DL 11/22 Unknown COMPREHENSIVE METABOLIC 34623 CALCIUM 9.5 MG/DL 2010 Unknown COMPREHENSIVE METABOLIC 35523 POTASSIUM 4.3 MMOL/L 12/07 Unknown COMPREHENSIVE METABOLIC 06581 PROT TOT 6.6 GM/DL 2010 Unknown COMPREHENSIVE METABOLIC 42795 Glucose 176 MG/DL 2010 Unknown COMPREHENSIVE METABOLIC 57921 BICARB 28 MMOL/L 2010 Unknown COMPREHENSIVE METABOLIC 01225 ANION GAP 9 MEQ/L 2010 Unknown PSA EQUIMOLAR JONATAN 20177 PSA EQ 0.65 NG/ML 1 Unknown HEMOGLOBIN A1C (GLYCOSYLATED) 84506 A1C HPLC 16671-3 6.9 % 12/07/2010 Unknown Procedures Procedure Codes Date FLU VACC PRSV FREE INC ANTIG 65 AND OLDER CPT-4: 61255 08/07/2019 FLU VACC PRSV FREE INC ANTIG 65 AND OLDER CPT-4: 20181 08/07/2019 ADMIN INFLUENZA VIRUS VAC CPT-4: G0008 08/07/2019 THER/PROPH/DIAG INJ SC/IM CPT-4: 22423 07/14/2019 METHYLPREDNISOLONE INJECTION CPT-4: J2930 07/14/2019 ROUTINE VENIPUNCTURE CPT-4: 74701 06/17/2019 ASSAY THYROID STIM HORMONE CPT-4: 73702 06/17/2019 COMPREHEN METABOLIC PANEL CPT-4: 95658 06/17/2019 COMPLETE CBC W/AUTO DIFF WBC CPT-4: 99256 06/17/2019 ASSAY OF IRON CPT-4: 60897 06/17/2019 VITAMIN B-12 CPT-4: 22927 06/17/2019 RBC SED RATE AUTOMATED CPT-4: 75522 06/17/2019 THER/PROPH/DIAG INJ SC/IM CPT-4: 71109 06/10/2019 THER/PROPH/DIAG INJ SC/IM CPT-4: 57241 06/02/2019 THER/PROPH/DIAG INJ SC/IM CPT-4: 26133 05/27/2019 THER/PROPH/DIAG INJ SC/IM CPT-4: 28215 05/12/2019 ROUTINE VENIPUNCTURE CPT-4: 30695 05/08/2019 COMPREHEN METABOLIC PANEL CPT-4: 16700 05/08/2019 COMPLETE CBC W/AUTO DIFF WBC CPT-4: 28327 05/08/2019 A1C HPLC CPT-4: 02411 05/08/2019 VITAMIN D TOTAL (25 HYDROXY) CPT-4: 24024 05/08/2019 ASSAY OF IRON CPT-4: 12716 05/08/2019 ASSAY OF FERRITIN CPT-4: 91815 05/08/2019 VITAMIN B-12 CPT-4: 81358 05/08/2019 THER/PROPH/DIAG INJ SC/IM CPT-4: 86486 03/21/2019 METHYLPREDNISOLONE INJECTION CPT-4: J2930 03/21/2019 THER/PROPH/DIAG INJ SC/IM CPT-4: 79989 03/13/2019 METHYLPREDNISOLONE INJECTION CPT-4: J2930 03/13/2019 THER/PROPH/DIAG INJ SC/IM CPT-4: 03950 12/25/2018 METHYLPREDNISOLONE INJECTION CPT-4: J2930 12/25/2018 ROUTINE VENIPUNCTURE CPT-4: 93905 12/09/2018 ASSAY OF FREE THYROXINE CPT-4: 29798 12/09/2018 ASSAY THYROID STIM HORMONE CPT-4: 66328 12/09/2018 COMPREHEN METABOLIC PANEL CPT-4: 04155 12/09/2018 COMPLETE CBC W/AUTO DIFF WBC CPT-4: 19759 12/09/2018 LIPID PANEL CPT-4: 12060 12/09/2018 A1C HPLC CPT-4: 77745 12/09/2018 PRESCRIP TRANSMIT VIA ERX SY CPT-4: G8553 08/21/2018 PRESCRIP TRANSMIT VIA ERX SY CPT-4: G8553 08/07/2018 THER/PROPH/DIAG INJ SC/IM CPT-4: 98632 05/23/2018 METHYLPREDNISOLONE INJECTION CPT-4: J2930 05/23/2018 PRESCRIP TRANSMIT VIA ERX SY CPT-4: G8553 05/02/2018 THER/PROPH/DIAG INJ SC/IM CPT-4: 64372 04/29/2018 METHYLPREDNISOLONE INJECTION CPT-4: J2930 04/29/2018 DEXAMETHASONE SODIUM PHOS CPT-4: J1100 04/22/2018 THER/PROPH/DIAG INJ SC/IM CPT-4: 18960 04/22/2018 TRIAMCINOLONE ACET INJ NOS CPT-4: J3301 04/22/2018 PRESCRIP TRANSMIT VIA ERX SY CPT-4: G8553 04/22/2018 PRESCRIP TRANSMIT VIA ERX SY CPT-4: G8553 01/23/2018 URINALYSIS NONAUTO W/O SCOPE CPT-4: 13460 01/02/2018 URINE CULTURE/ COLONY COUNT CPT-4: 44101 01/02/2018 PRESCRIP TRANSMIT VIA ERX SY CPT-4: G8553 01/02/2018 PRESCRIP TRANSMIT VIA ERX SY CPT-4: G8553 12/28/2017 PRESCRIP TRANSMIT VIA ERX SY CPT-4: G8553 12/21/2017 CEFTRIAXONE SODIUM INJECTION CPT-4: J0696 12/17/2017 THER/PROPH/DIAG INJ SC/IM CPT-4: 00543 12/17/2017 THER/PROPH/DIAG INJ SC/IM CPT-4: 57241 12/17/2017 TRIAMCINOLONE ACET INJ NOS CPT-4: J3301 12/17/2017 PRESCRIP TRANSMIT VIA ERX SY CPT-4: G8553 12/17/2017 DRAIN/INJECT JOINT/BURSA CPT-4: 15579 12/11/2017 TRIAMCINOLONE ACET INJ NOS CPT-4: J3301 12/11/2017 DEXAMETHASONE SODIUM PHOS CPT-4: J1100 12/11/2017 DESTRUCT PREMALG LESION (Cryosurgery) CPT-4: 16374 PRESCRIP TRANSMIT VIA ERX SY CPT-4: G8553 10/17/2017 DEXAMETHASONE SODIUM PHOS CPT-4: J1100 08/02/2017 THER/PROPH/DIAG INJ SC/IM CPT-4: 05718 08/02/2017 TRIAMCINOLONE ACET INJ NOS CPT-4: J3301 08/02/2017 PRESCRIP TRANSMIT VIA ERX SY CPT-4: G8553 08/02/2017 PNEUMOCOCCAL VACC 23 OLIVIA IM CPT-4: 25407 07/24/2017 ADMIN PNEUMOCOCCAL VACCINE CPT-4: G0009 07/24/2017 ALBUTEROL NON-COMP UNIT CPT-4: J7613 07/02/2017 AIRWAY INHALATION TREATMENT CPT-4: 33211 07/02/2017 THER/PROPH/DIAG INJ SC/IM CPT-4: 59576 07/02/2017 METHYLPREDNISOLONE INJECTION CPT-4: J2930 07/02/2017 PRESCRIP TRANSMIT VIA ERX SY CPT-4: G8553 05/29/2017 ROUTINE VENIPUNCTURE CPT-4: 57935 04/17/2017 ASSAY OF IRON CPT-4: 39847 04/17/2017 VITAMIN B-12 CPT-4: 38296 04/17/2017 COMPREHEN METABOLIC PANEL CPT-4: 62297 04/17/2017 COMPLETE CBC W/AUTO DIFF WBC CPT-4: 26367 04/17/2017 ASSAY OF FERRITIN CPT-4: 54016 04/17/2017 ASSAY THYROID STIM HORMONE CPT-4: 69793 04/17/2017 A1C HPLC CPT-4: 71471 04/17/2017 DRAIN/INJECT JOINT/BURSA CPT-4: 25697 02/01/2017 TRIAMCINOLONE ACET INJ NOS CPT-4: J3301 02/01/2017 DEXAMETHASONE SODIUM PHOS CPT-4: J1100 02/01/2017 ROUTINE VENIPUNCTURE CPT-4: 78551 12/27/2016 COMPLETE CBC W/AUTO DIFF WBC CPT-4: 71256 12/27/2016 ROUTINE VENIPUNCTURE CPT-4: 54848 12/21/2016 COMPLETE CBC W/AUTO DIFF WBC CPT-4: 27448 12/21/2016 ROUTINE VENIPUNCTURE CPT-4: 20910 12/12/2016 COMPLETE CBC W/AUTO DIFF WBC CPT-4: 70423 12/12/2016 PRESCRIP TRANSMIT VIA ERX SY CPT-4: G8553 10/31/2016 PRESCRIP TRANSMIT VIA ERX SY CPT-4: G8553 10/03/2016 PRESCRIP TRANSMIT VIA ERX SY CPT-4: G8553 09/04/2016 DESTRUCT PREMALG LESION (Cryosurgery) CPT-4: 40766 DESTRUCT PREMALG LES 2-14 CPT-4: 56555 08/22/2016 PRESCRIP TRANSMIT VIA ERX SY CPT-4: G8553 08/10/2016 PRESCRIP TRANSMIT VIA ERX SY CPT-4: G8553 07/06/2016 FLU VACC PRSV FREE INC ANTIG 65 AND OLDER CPT-4: 94241 06/13/2016 PNEUMOCOCCAL VACC 13 OLIVIA IM CPT-4: 57658 06/13/2016 ADMIN INFLUENZA VIRUS VAC CPT-4: G0008 06/13/2016 ADMIN PNEUMOCOCCAL VACCINE CPT-4: G0009 06/13/2016 CERUM REMOVAL CPT-4: 56478 04/05/2016 PRESCRIP TRANSMIT VIA ERX SY CPT-4: G8553 04/03/2016 ROUTINE VENIPUNCTURE CPT-4: 74760 03/06/2016 ASSAY OF FREE THYROXINE CPT-4: 68505 03/06/2016 ASSAY THYROID STIM HORMONE CPT-4: 39468 03/06/2016 COMPREHEN METABOLIC PANEL CPT-4: 68879 03/06/2016 COMPLETE CBC W/AUTO DIFF WBC CPT-4: 05727 03/06/2016 LIPID PANEL CPT-4: 21917 03/06/2016 ASSAY OF PSA TOTAL CPT-4: 00395 03/06/2016 TESTOSTERONE TOTAL - MALE CPT-4: 43887 03/06/2016 A1C HPLC CPT-4: 00654 03/06/2016 ASSAY OF IRON CPT-4: 87853 03/06/2016 VITAMIN B-12 CPT-4: 40749 03/06/2016 INJ TENDON SHEATH/LIGAMENT CPT-4: 74544 02/17/2016 TRIAMCINOLONE ACET INJ NOS CPT-4: J3301 02/17/2016 DEXAMETHASONE SODIUM PHOS CPT-4: J1100 02/17/2016 PRESCRIP TRANSMIT VIA ERX SY CPT-4: G8553 01/31/2016 PRESCRIP TRANSMIT VIA ERX SY CPT-4: G8553 12/30/2015 PRESCRIP TRANSMIT VIA ERX SY CPT-4: G8553 12/06/2015 PRESCRIP TRANSMIT VIA ERX SY CPT-4: G8553 11/15/2015 PPPS, subseq visit CPT-4: G0439 10/05/2015 MICROALBUMIN QUANTITATIVE CPT-4: 88806 10/05/2015 PROTEIN/CREAT URINE WITH RATIO CPT-4: 90799|54858 6 ROUTINE VENIPUNCTURE CPT-4: 84787 07/01/2015 ASSAY OF FREE THYROXINE CPT-4: 59410 07/01/2015 ASSAY THYROID STIM HORMONE CPT-4: 42028 07/01/2015 COMPLETE CBC W/AUTO DIFF WBC CPT-4: 27772 07/01/2015 LIPID PANEL CPT-4: 12658 07/01/2015 ASSAY OF PSA TOTAL CPT-4: 67495 07/01/2015 AEROBIC WOUND CULTURE & STN CPT-4: 27306 06/28/2015 PRESCRIP TRANSMIT VIA ERX SY CPT-4: G8553 06/28/2015 AEROBIC WOUND CULTURE & STN CPT-4: 56046 06/03/2015 PRESCRIP TRANSMIT VIA ERX SY CPT-4: G8553 06/03/2015 ROUTINE VENIPUNCTURE CPT-4: 62421 06/01/2015 COMPREHEN METABOLIC PANEL CPT-4: 99931 06/01/2015 A1C HPLC CPT-4: 95769 06/01/2015 COMPREHEN METABOLIC PANEL CPT-4: 97032 02/25/2015 A1C HPLC CPT-4: 39582 02/25/2015 DESTRUCT PREMALG LESION (Cryosurgery) CPT-4: 99630 PROTEIN/CREAT URINE WITH RATIO CPT-4: 13570|89130 5 MICROALBUMIN QUANTITATIVE CPT-4: 48368 10/27/2014 INFLUENZA ASSAY W/OPTIC CPT-4: 97216 10/21/2014 PRESCRIP TRANSMIT VIA ERX SY CPT-4: G8553 10/06/2014 PRESCRIP TRANSMIT VIA ERX SY CPT-4: G8553 09/21/2014 PRESCRIP TRANSMIT VIA ERX SY CPT-4: G8553 09/02/2014 MICROALBUMIN QUANTITATIVE CPT-4: 64386 08/27/2014 PROTEIN/CREAT URINE WITH RATIO CPT-4: 30666|84780 4 PPPS, subseq visit CPT-4: G0439 08/10/2014 ROUTINE VENIPUNCTURE CPT-4: 29109 08/05/2014 ASSAY OF FREE THYROXINE CPT-4: 51798 08/05/2014 ASSAY THYROID STIM HORMONE CPT-4: 13797 08/05/2014 COMPREHEN METABOLIC PANEL CPT-4: 76961 08/05/2014 COMPLETE CBC W/AUTO DIFF WBC CPT-4: 42795 08/05/2014 LIPID PANEL CPT-4: 18053 08/05/2014 A1C HPLC CPT-4: 33728 08/05/2014 FLUZONE, 5ML (Medicare) CPT-4: Q2038 08/05/2014 ADMIN INFLUENZA VIRUS VAC CPT-4: G0008 08/05/2014 METHYLPREDNISOLONE 40 MG INJ CPT-4: J1030 12/16/2013 TRIAMCINOLONE ACET INJ NOS CPT-4: J3301 12/16/2013 DRAIN/INJECT JOINT/BURSA CPT-4: 09353 12/16/2013 PRESCRIP TRANSMIT VIA ERX SY CPT-4: G8553 10/09/2013 THER/PROPH/DIAG INJ SC/IM CPT-4: 12493 09/18/2013 METHYLPREDNISOLONE 40 MG INJ CPT-4: J1030 09/18/2013 TRIAMCINOLONE ACET INJ NOS CPT-4: J3301 09/18/2013 PRESCRIP TRANSMIT VIA ERX SY CPT-4: G8553 09/18/2013 PRESCRIP TRANSMIT VIA ERX SY CPT-4: G8553 08/13/2013 ROUTINE VENIPUNCTURE CPT-4: 35351 06/25/2013 ASSAY OF FREE THYROXINE CPT-4: 71646 06/25/2013 ASSAY THYROID STIM HORMONE CPT-4: 20873 06/25/2013 COMPREHEN METABOLIC PANEL CPT-4: 20771 06/25/2013 COMPLETE CBC W/AUTO DIFF WBC CPT-4: 97750 06/25/2013 LIPID PANEL CPT-4: 07524 06/25/2013 A1C GLYCOSYLATED HEMOGLOBIN TEST CPT-4: 54919 013 ROUTINE VENIPUNCTURE CPT-4: 03914 04/09/2013 COMPLETE CBC W/AUTO DIFF WBC CPT-4: 93601 04/09/2013 MYCOPLASMA ANTIBODY, IFA CPT-4: 63959A8 04/09/2013 ROUTINE VENIPUNCTURE CPT-4: 08588 02/11/2013 ASSAY OF FREE THYROXINE CPT-4: 25057 02/11/2013 ASSAY THYROID STIM HORMONE CPT-4: 86717 02/11/2013 COMPREHEN METABOLIC PANEL CPT-4: 81587 02/11/2013 COMPLETE CBC W/AUTO DIFF WBC CPT-4: 32775 02/11/2013 VITAMIN B 12 FOLIC ACID CPT-4: 80433|13209 02/11/2013 C-REACTIVE PROTEIN CPT-4: 70066 02/11/2013 A1C GLYCOSYLATED HEMOGLOBIN TEST CPT-4: 92597 013 ASSAY OF BLOOD/URIC ACID CPT-4: 72515 02/11/2013 CEFTRIAXONE SODIUM INJECTION CPT-4: J0696 01/31/2013 THER/PROPH/DIAG INJ SC/IM CPT-4: 01039 01/31/2013 THER/PROPH/DIAG INJ SC/IM CPT-4: 04520 01/31/2013 METHYLPREDNISOLONE 40 MG INJ CPT-4: J1030 01/31/2013 TRIAMCINOLONE ACET INJ NOS CPT-4: J3301 01/31/2013 ROUTINE VENIPUNCTURE CPT-4: 62163 09/19/2012 COMPREHEN METABOLIC PANEL CPT-4: 80092 09/19/2012 LIPID PANEL CPT-4: 31711 09/19/2012 A1C GLYCOSYLATED HEMOGLOBIN TEST CPT-4: 12801 012 PNEUMOCOCCAL VACC 23 OLIVIA IM CPT-4: 65739 07/10/2012 FLUZONE, 5ML (Medicare) CPT-4: Q2038 07/10/2012 ADMIN INFLUENZA VIRUS VAC CPT-4: G0008 07/10/2012 ADMIN PNEUMOCOCCAL VACCINE CPT-4: G0009 07/10/2012 ROUTINE VENIPUNCTURE CPT-4: 17646 05/06/2012 ASSAY OF FREE THYROXINE CPT-4: 48792 05/06/2012 ASSAY THYROID STIM HORMONE CPT-4: 05396 05/06/2012 COMPREHEN METABOLIC PANEL CPT-4: 20687 05/06/2012 COMPLETE CBC W/AUTO DIFF WBC CPT-4: 82154 05/06/2012 LIPID PANEL CPT-4: 62317 05/06/2012 A1C GLYCOSYLATED HEMOGLOBIN TEST CPT-4: 05333 012 IMMUNIZATION ADMIN CPT-4: 74314 02/05/2012 FLUZONE, 5ML (Medicare) CPT-4: Q2038 08/10/2011 ADMIN INFLUENZA VIRUS VAC CPT-4: G0008 08/10/2011 ROUTINE VENIPUNCTURE CPT-4: 92743 07/26/2011 ASSAY OF FREE THYROXINE CPT-4: 53994 07/26/2011 ASSAY THYROID STIM HORMONE CPT-4: 09086 07/26/2011 COMPREHEN METABOLIC PANEL CPT-4: 66149 07/26/2011 COMPLETE CBC W/AUTO DIFF WBC CPT-4: 00983 07/26/2011 LIPID PANEL CPT-4: 22598 07/26/2011 A1C GLYCOSYLATED HEMOGLOBIN TEST CPT-4: 73151 011 ASSAY OF PSA TOTAL CPT-4: 19936 07/26/2011 ROUTINE VENIPUNCTURE CPT-4: 87783 01/19/2011 ASSAY OF NATRIURETIC PEPTIDE CPT-4: 01930 01/19/2011 THER/PROPH/DIAG INJ SC/IM CPT-4: 57632 01/19/2011 CEFTRIAXONE SODIUM INJECTION CPT-4: J0696 01/19/2011 METHYLPREDNISOLONE INJECTION CPT-4: J2930 01/19/2011 THER/PROPH/DIAG INJ SC/IM CPT-4: 41985 01/19/2011 THER/PROPH/DIAG INJ SC/IM CPT-4: 02591 01/18/2011 CEFTRIAXONE SODIUM INJECTION CPT-4: J0696 01/18/2011 METHYLPREDNISOLONE INJECTION CPT-4: J2930 01/18/2011 THER/PROPH/DIAG INJ SC/IM CPT-4: 19926 01/18/2011 THER/PROPH/DIAG INJ SC/IM CPT-4: 27542 12/21/2010 TESTOSTERONE CYPIONAT 100 MG CPT-4: J1070 12/21/2010 ROUTINE VENIPUNCTURE CPT-4: 38560 12/19/2010 TESTOSTERONE TOTAL - MALE CPT-4: 91480 12/19/2010 ROUTINE VENIPUNCTURE CPT-4: 57219 12/07/2010 COMPLETE CBC W/AUTO DIFF WBC CPT-4: 69355 12/07/2010 COMPREHEN METABOLIC PANEL CPT-4: 61353 12/07/2010 LIPID PANEL CPT-4: 43209 12/07/2010 A1C GLYCOSYLATED HEMOGLOBIN TEST CPT-4: 76999 011 ASSAY OF PSA TOTAL CPT-4: 13636 12/07/2010 ROUTINE VENIPUNCTURE CPT-4: 90401 04/05/2010 PRESCRIP TRANSMIT VIA ERX SY CPT-4: G8553 04/05/2010 ROUTINE VENIPUNCTURE CPT-4: 63770 01/13/2010 METHYLPREDNISOLONE INJECTION CPT-4: J2930 12/22/2009 THER/PROPH/DIAG INJ SC/IM CPT-4: 06120 12/22/2009 THER/PROPH/DIAG INJ SC/IM CPT-4: 53524 12/22/2009 CEFTRIAXONE SODIUM INJECTION CPT-4: J0696 12/22/2009 ROUTINE VENIPUNCTURE CPT-4: 56904 12/22/2009 COMPLETE CBC W/AUTO DIFF WBC CPT-4: 47959 12/22/2009 RBC SED RATE, AUTOMATED CPT-4: 54132 12/22/2009 RPR FE/E/EN/L/M 20.1-30.0 CM CPT-4: 88733 12/22/2009 EKG FOR INITIAL PREVENT EXAM CPT-4: G0403 12/22/2009 THER/PROPH/DIAG INJ SC/IM CPT-4: 34529 12/16/2009 KETOROLAC TROMETHAMINE INJ CPT-4: J1885 12/16/2009 [...] 1: 126/68 Code: 8480-6 BMI: 30.2 Code: 80894-0 Heart Rate 1: 92 bpm Height: 6' Respiratory Rate: 22 bpm SpO2: 94% Tempera ture: 36.9 (C) / 98.5 (F) Weight: 223 lbs 08/21/2018 Blood Pressure 1: 160/70 Code: 8480-6 Heart Rate 1: 79 bpm Respiratory Rate: 20 bpm SpO2: 94% Temperature: 36.7 (C) / 98.0 (F) We ight: 226 lbs 8 oz 08/07/2018 Blood Pressure 1: 138/70 Code: 8480-6 BMI: 30.1 Code: 07233-5 Heart Rate 1: 80 bpm Height: 6' Respiratory Rate: 20 bpm SpO2: 94% Tempera ture: 36.9 (C) / 98.5 (F) Weight: 222 lbs 05/23/2018 Blood Pressure 1: 148/66 Code: 8480-6 BMI: 30.0 Code: 33654-5 Heart Rate 1: 96 bpm Height: 6' Respiratory Rate: 22 bpm SpO2: 94% Tempera ture: 37.3 (C) / 99.1 (F) Weight: 221 lbs 05/02/2018 Blood Pressure 1: 146/78 Code: 8480-6 BMI: 29.6 Code: 09468-8 Heart Rate 1: 78 bpm Height: 6' Respiratory Rate: 26 bpm SpO2: 94% Tempera ture: 35.7 (C) / 96.2 (F) Weight: 218 lbs 04/29/2018 Blood Pressure 1: 142/62 Code: 8480-6 BMI: 28.6 Code: 27744-7 Heart Rate 1: 82 bpm Height: 6' Respiratory Rate: 22 bpm SpO2: 98% Tempera ture: 36.4 (C) / 97.6 (F) Weight: 211 lbs 04/22/2018 Blood Pressure 1: 126/64 Code: 8480-6 BMI: 30.0 Code: 24959-4 Heart Rate 1: 96 bpm Height: 6' [...] 1: 144/78 Code: 8480-6 BMI: 30.7 Code: 05246-1 Heart Rate 1: 92 bpm Height: 6' Respiratory Rate: 28 bpm SpO2: 94% Tempera ture: 36.9 (C) / 98.4 (F) Weight: 226 lbs 12/28/2017 Blood Pressure 1: 136/80 Code: 8480-6 Heart Rate 1: 92 bpm Respiratory Rate: 28 bpm SpO2: 94% Temperature: 36.7 (C) / 98.1 (F) 12/21/2017 Blood Pressure 1: 146/84 Code: 8480-6 BMI: 31.1 Code: 08872-6 Heart Rate 1: 84 bpm Height: 6' [...] 1: 142/64 Code: 8480-6 BMI: 31.3 Code: 84771-2 Heart Rate 1: 98 bpm Height: 6' Respiratory Rate: 24 bpm SpO2: 94% Tempera ture: 36.4 (C) / 97.6 (F) Weight: 231 lbs 10/17/2017 Blood Pressure 1: 140/68 Code: 8480-6 BMI: 31.7 Code: 80738-5 Heart Rate 1: 88 bpm Height: 6' Respiratory Rate: 20 bpm SpO2: 94% Tempera ture: 36.8 (C) / 98.3 (F) Weight: 234 lbs 08/02/2017 Blood Pressure 1: 142/80 Code: 8480-6 BMI: 31.1 Code: 73069-6 Heart Rate 1: 86 bpm Height: 6' Respiratory Rate: 20 bpm SpO2: 90% Tempera ture: 35.9 (C) / 96.7 (F) Weight: 229 lbs 07/02/2017 Blood Pressure 1: 146/64 Code: 8480-6 BMI: 29.6 Code: 80665-8 Heart Rate 1: 96 bpm Height: 6' Respiratory Rate: 20 bpm Temperature: 36 .4 (C) / 97.6 (F) Weight: 218 lbs 05/29/2017 Blood Pressure 1: 152/68 Code: 8480-6 BMI: 31.5 Code: 65653-6 Heart Rate 1: 100 bpm Height: 6' Respiratory Rate: 20 bpm SpO2: 92% Tempera ture: 36.9 (C) / 98.4 (F) Weight: 232 lbs 02/01/2017 Blood Pressure 1: 146/64 Code: 8480-6 BMI: 30.7 Code: 05443-5 Heart Rate 1: 76 bpm Height: 6' Respiratory Rate: 20 bpm SpO2: 95% Tempera ture: 36.8 (C) / 98.2 (F) Weight: 226 lbs 01/29/2017 Blood Pressure 1: 146/78 Code: 8480-6 Heart Rate 1: 84 bpm Respiratory Rate: 20 bpm SpO2: 96% Temperature: 36.1 (C) / 97.0 (F) We ight: 226 lbs 12/21/2016 Blood Pressure 1: 126/60 Code: 8480-6 BMI: 30.8 Code: 70875-9 Heart Rate 1: 88 bpm Height: 6' Respiratory Rate: 22 bpm SpO2: 94% Tempera ture: 36.7 (C) / 98.0 (F) Weight: 227 lbs 12/14/2016 Blood Pressure 1: 126/70 Code: 8480-6 BMI: 29.8 Code: 65004-0 Heart Rate 1: 92 bpm Height: 6' Respiratory Rate: 22 bpm SpO2: 93% Tempera ture: 36.8 (C) / 98.2 (F) Weight: 220 lbs 11/14/2016 Blood Pressure 1: 128/62 Code: 8480-6 Heart Rate 1: 100 bpm Respiratory Rate: 20 bpm SpO2: 96% Temperature: 36.6 (C) / 97.8 (F) We ight: 220 lbs 10/31/2016 Blood Pressure 1: 142/60 Code: 8480-6 BMI: 30.1 Code: 11023-7 Heart Rate 1: 112 bpm Height: 6' Respiratory Rate: 24 bpm SpO2: 93% Tempera ture: 37.1 (C) / 98.7 (F) Weight: 222 lbs 10/03/2016 Blood Pressure 1: 136/78 Code: 8480-6 Heart Rate 1: 106 bpm Respiratory Rate: 24 bpm SpO2: 93% Temperature: 36.6 (C) / 97.8 (F) We ight: 221 lbs 09/04/2016 Blood Pressure 1: 112/44 Code: 8480-6 BMI: 30.1 Code: 37354-0 Heart Rate 1: 90 bpm Height: 6' Respiratory Rate: 20 bpm SpO2: 93% Tempera ture: 36.6 (C) / 97.9 (F) Weight: 222 lbs 08/22/2016 Blood Pressure 1: 142/68 Code: 8480-6 BMI: 30.4 Code: 17781-9 Heart Rate 1: 100 bpm Height: 6' Respiratory Rate: 24 bpm SpO2: 93% Tempera ture: 36.7 (C) / 98.1 (F) Weight: 224 lbs 08/10/2016 Blood Pressure 1: 134/60 Code: 8480-6 BMI: 30.2 Code: 54447-5 Heart Rate 1: 76 bpm Height: 6' [...] 1: 122/72 Code: 8480-6 BMI: 30.7 Code: 20897-2 Heart Rate 1: 96 bpm Height: 6' Respiratory Rate: 22 bpm SpO2: 96% Tempera ture: 35.9 (C) / 96.7 (F) Weight: 226 lbs 04/03/2016 Blood Pressure 1: 146/64 Code: 8480-6 BMI: 30.8 Code: 72229-5 Heart Rate 1: 76 bpm Height: 6' Respiratory Rate: 20 bpm Temperature: 36 .8 (C) / 98.2 (F) Weight: 227 lbs 03/02/2016 Blood Pressure 1: 148/60 Code: 8480-6 BMI: 31.1 Code: 74943-5 Heart Rate 1: 80 bpm Height: 6' Respiratory Rate: 22 bpm SpO2: 94% Tempera ture: 36.6 (C) / 97.8 (F) Weight: 229 lbs 02/17/2016 Blood Pressure 1: 132/60 Code: 8480-6 BMI: 31.3 Code: 55377-9 Heart Rate 1: 80 bpm Height: 6' Respiratory Rate: 20 bpm Temperature: 36 .9 (C) / 98.4 (F) Weight: 231 lbs 02/14/2016 Blood Pressure 1: 126/70 Code: 8480-6 BMI: 31.3 Code: 62198-9 Heart Rate 1: 80 bpm Height: 6' Respiratory Rate: 24 bpm SpO2: 95% Tempera ture: 36.9 (C) / 98.5 (F) Weight: 231 lbs 01/31/2016 Blood Pressure 1: 136/60 Code: 8480-6 Heart Rate 1: 76 bpm Respiratory Rate: 22 bpm Temperature: 37.0 (C) / 98.6 (F) Weight: 230 lbs 12/30/2015 Blood Pressure 1: 128/58 Code: 8480-6 BMI: 31.2 Code: 77340-0 Heart Rate 1: 80 bpm Height: 6' Respiratory Rate: 20 bpm Temperature: 36 .8 (C) / 98.2 (F) Weight: 230 lbs 12/16/2015 Blood Pressure 1: 122/60 Code: 8480-6 BMI: 32.0 Code: 50348-2 Heart Rate 1: 84 bpm Height: 6' Respiratory Rate: 24 bpm Temperature: 37 .1 (C) / 98.7 (F) Weight: 236 lbs 12/06/2015 Blood Pressure 1: 162/74 Code: 8480-6 BMI: 32.5 Code: 33077-4 Heart Rate 1: 90 bpm Height: 6' Respiratory Rate: 20 bpm SpO2: 96% Tempera ture: 36.4 (C) / 97.6 (F) Weight: 240 lbs 11/15/2015 Blood Pressure 1: 166/80 Code: 8480-6 BMI: 32.4 Code: 68110-0 Heart Rate 1: 92 bpm Height: 6' Respiratory Rate: 28 bpm Temperature: 36 .5 (C) / 97.7 (F) Weight: 239 lbs 10/05/2015 Blood Pressure 1: 146/76 Code: 8480-6 BMI: 32.4 Code: 21960-1 Heart Rate 1: 88 bpm Height: 6' Respiratory Rate: 28 bpm Temperature: 37 .1 (C) / 98.7 (F) Weight: 239 lbs 07/22/2015 Blood Pressure 1: 144/68 Code: 8480-6 BMI: 31.9 Code: 26414-5 Heart Rate 1: 88 bpm Height: 6' [...] 1: 142/64 Code: 8480-6 BMI: 32.1 Code: 05368-8 Heart Rate 1: 80 bpm Height: 6' Respiratory Rate: 18 bpm Temperature: 36 .4 (C) / 97.6 (F) Weight: 237 lbs 06/07/2015 Blood Pressure 1: 164/58 Code: 8480-6 BMI: 32.1 Code: 63486-1 Heart Rate 1: 88 bpm Height: 6' Respiratory Rate: 20 bpm Temperature: 36 .6 (C) / 97.9 (F) Weight: 237 lbs 06/03/2015 Blood Pressure 1: 152/64 Code: 8480-6 BMI: 32.1 Code: 62431-1 Heart Rate 1: 96 bpm Height: 6' Respiratory Rate: 20 bpm Temperature: 37 .4 (C) / 99.3 (F) Weight: 237 lbs 06/01/2015 Blood Pressure 1: 136/70 Code: 8480-6 BMI: 31.7 Code: 88469-8 Heart Rate 1: 72 bpm Height: 6' Respiratory Rate: 22 bpm SpO2: 94% Tempera ture: 36.6 (C) / 97.9 (F) Weight: 234 lbs 02/25/2015 Blood Pressure 1: 146/80 Code: 8480-6 BMI: 32.4 Code: 17224-5 Heart Rate 1: 84 bpm Height: 6' Respiratory Rate: 28 bpm Temperature: 36 .7 (C) / 98.0 (F) Weight: 239 lbs 10/27/2014 Blood Pressure 1: 168/70 Code: 8480-6 BMI: 32.0 Code: 31087-8 Heart Rate 1: 80 bpm Height: 6' Respiratory Rate: 30 bpm SpO2: 98% Tempera ture: 36.4 (C) / 97.6 (F) Weight: 236 lbs 10/21/2014 Blood Pressure 1: 152/58 Code: 8480-6 BMI: 32.1 Code: 73463-5 Heart Rate 1: 78 bpm Height: 6' Respiratory Rate: 20 bpm Temperature: 37 .8 (C) / 100.1 (F) Weight: 237 lbs 10/06/2014 Blood Pressure 1: 132/64 Code: 8480-6 BMI: 32.5 Code: 98891-7 Heart Rate 1: 88 bpm Height: 6' Respiratory Rate: 32 bpm SpO2: 94% Tempera ture: 36.8 (C) / 98.2 (F) Weight: 240 lbs 09/21/2014 Blood Pressure 1: 134/68 Code: 8480-6 BMI: 32.4 Code: 41635-2 Heart Rate 1: 96 bpm Height: 6' Respiratory Rate: 30 bpm Temperature: 36 .7 (C) / 98.1 (F) Weight: 239 lbs 09/08/2014 Blood Pressure 1: 128/74 Code: 8480-6 BMI: 32.4 Code: 64100-9 Heart Rate 1: 82 bpm Height: 6' Respiratory Rate: 28 bpm SpO2: 93% Tempera ture: 36.6 (C) / 97.8 (F) Weight: 239 lbs 09/02/2014 Blood Pressure 1: 164/78 Code: 8480-6 Heart Rate 1: 86 bpm Respiratory Rate: 22 bpm SpO2: 96% Temperature: 36.1 (C) / 97.0 (F) We ight: 239 lbs 08/10/2014 Blood Pressure 1: 152/60 Code: 8480-6 BMI: 32.8 Code: 71490-2 Heart Rate 1: 80 bpm Height: 6' [...] 1: 146/80 Code: 8480-6 BMI: 33.9 Code: 25296-2 Heart Rate 1: 80 bpm Height: 6' [...] 1: 148/78 Code: 8480-6 BMI: 30.5 Code: 86078-5 Heart Rate 1: 84 bpm Height: 6' Respiratory Rate: 28 bpm SpO2: 97% Tempera ture: 36.4 (C) / 97.5 (F) Weight: 225 lbs 08/06/2013 Blood Pressure 1: 158/70 Code: 8480-6 Heart Rate 1: 110 bpm Respiratory Rate: 22 bpm SpO2: 88% Temperature: 39.7 (C) / 103.4 (F) W eight: 07/16/2013 Blood Pressure 1: 148/82 Code: 8480-6 BMI: 31.9 Code: 53531-1 Heart Rate 1: 80 bpm Height: 6' Respiratory Rate: 20 bpm Temperature: 36 .6 (C) / 97.9 (F) Weight: 235 lbs 04/09/2013 Blood Pressure 1: 142/78 Code: 8480-6 BMI: 31.5 Code: 02657-7 Heart Rate 1: 88 bpm Height: 6' Respiratory Rate: 32 bpm SpO2: 95% Tempera ture: 37.0 (C) / 98.6 (F) Weight: 232 lbs 02/11/2013 Blood Pressure 1: 146/70 Code: 8480-6 Heart Rate 1: 88 bpm Respiratory Rate: 20 bpm Temperature: 36.8 (C) / 98.3 (F) Weight: 230 lbs 01/31/2013 Blood Pressure 1: 128/70 Code: 8480-6 BMI: 31.6 Code: 08012-4 Heart Rate 1: 84 bpm Height: 6' Respiratory Rate: 24 bpm SpO2: 92% Tempera ture: 36.7 (C) / 98.0 (F) Weight: 233 lbs 01/20/2013 Blood Pressure 1: 148/64 Code: 8480-6 BMI: 31.6 Code: 74282-3 Heart Rate 1: 68 bpm Height: 6' Temperature: 36.1 (C) / 97.0 (F) Weight: 233 lbs 12/19/2012 Blood Pressure 1: 128/68 Code: 8480-6 BMI: 32.0 Code: 86593-2 Heart Rate 1: 64 bpm Height: 6' Temperature: 36.7 (C) / 98.0 (F) Weight: 236 lbs 10/21/2012 Blood Pressure 1: 142/64 Code: 8480-6 BMI: 30.9 Code: 42199-1 Heart Rate 1: 74 bpm Height: 6' Temperature: 36.2 (C) / 97.1 (F) Weight: 228 lbs 09/18/2012 Blood Pressure 1: 126/60 Code: 8480-6 BMI: 31.3 Code: 76623-0 Heart Rate 1: 88 bpm Height: 6' Respiratory Rate: 20 bpm Temperature: 36 .5 (C) / 97.7 (F) Weight: 231 lbs 08/28/2012 Blood Pressure 1: 132/68 Code: 8480-6 BMI: 31.5 Code: 99144-9 Heart Rate 1: 92 bpm Height: 6' Respiratory Rate: 30 bpm SpO2: 94% Tempera ture: 37.1 (C) / 98.7 (F) Weight: 232 lbs 07/10/2012 Blood Pressure 1: 118/70 Code: 8480-6 BMI: 30.5 Code: 89687-4 Heart Rate 1: 72 bpm Height: 6' Respiratory Rate: 24 bpm SpO2: 96% Tempera ture: 36.7 (C) / 98.0 (F) Weight: 225 lbs 05/09/2012 Blood Pressure 1: 124/68 Code: 8480-6 BMI: 29.8 Code: 09120-1 Heart Rate 1: 72 bpm Height: 6' Respiratory Rate: 20 bpm Temperature: 36 .8 (C) / 98.2 (F) Weight: 220 lbs 10/02/2011 Blood Pressure 1: 140/82 Code: 8480-6 BMI: 30.7 Code: 47131-0 Heart Rate 1: 68 bpm Height: 6' Temperature: 36.7 (C) / 98.0 (F) Weight: 226 lbs 08/07/2011 Blood Pressure 1: 122/68 Code: 8480-6 BMI: 30.5 Code: 32595-7 Heart Rate 1: 72 bpm Height: 6' [...] 1: 140/78 Code: 8480-6 BMI: 31.9 Code: 03087-8 Heart Rate 1: 84 bpm Height: 6' Temperature: 36.6 (C) / 97.8 (F) Weight: 235 lbs 12/22/2009 Blood Pressure 1: 140/74 Code: 8480-6 BMI: 31.9 Code: 58051-3 Heart Rate 1: 94 bpm Height: 6' SpO2: 92% Temperature: 35.7 (C) / 96.2 (F) Weight: 235 lbs 12/13/2009 Blood Pressure 1: 146/80 Code: 8480-6 BMI: 33.0 Code: 02884-8 Heart Rate 1: 86 bpm Height: 6' [...] shot follow up 05/08/2019 follow up 04/07/2019 [facility] dizziness 03/24/2019 dizziness 03/21/2019 sore throat 03/13/2019 Patient finished zit hromax last night and has one dose of prednisone left follow up 03/10/2019 ER [place]---patient cu rrently taking zithromax, prednisone and breathing treatments every two hours spasms/spasticity 02/26/2019 follow up 02/13/2019 follow up 01/14/2019 [facility] follow up 12/25/2018 cough 12/09/2018 here [...] 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 follow up 05/29/2017 Discuss Low [...] nightly. Patient has just been discharged from [place] with Pneumonia. Currently on Levaquin once daily. [...] fwup follow up 03/13/[address] 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] Diagnosis: FLU VACCINE[ICD10: Z23] Lita CRAWFORD [employer] CPT-4: 33991 08/07/2019 ([id number]) OFFICE/OUTPATIENT VISIT EST Diagnosis: Chronic obstructive pulmonary disease with (acute) exacerbation[ICD10: J44.1] Autumn Oneil LITA [employer] CPT- 4: 08289 07/14/2019 ([id number]) OFFICE/OUTPATIENT VISIT EST Diagnosis: Primary insomnia[ICD10: F51.01] Diagnosis: Dyspepsia and other specified disorders of function of stomach[ICD10: K31.89] Lita BARAKAT DO [facility] CPT-4: 71723 07/01/2019 ([id number]) OFFICE/OUTPATIENT VISIT EST Diagnosis: Epigastric pain[ICD10: R10.13] Diagnosis: Nausea[ICD10: R11.0] Diagnosis: Weight loss[ICD10: R63.4] Lita AREVALO DO [facility] CPT-4: 39318 06/24/2019 ([id number]) OFFICE/OUTPATIENT VISIT EST Diagnosis: Chronic obstructive pulmonary disease, unspecified[ICD10: J44.9] Diagnosis: Chronic insomnia[ICD10: F51.04] Diagnosis: Anemia[ICD10: D64.9] Diagnosis: Diplopia[ICD10: H53.2] Diagnosis: [place][ICD10: F30.9] Lita BARAKAT DO [facility] CPT-4: 55524 06/17/2019 ([id number]) NURSE/OUTPATIENT VISIT EST Diagnosis: Vitamin B12 deficiency anemia, unspecified[ICD10: D51.9] Lita BARAKAT DO [facility] CPT-4: 82487 06/10/2019 ([id number]) NURSE/OUTPATIENT VISIT EST Diagnosis: Vitamin B12 deficiency anemia, unspecified[ICD10: D51.9] Lita BARAKAT DO [facility] CPT-4: 59062 06/02/2019 ([id number]) NURSE/OUTPATIENT VISIT EST Diagnosis: Vitamin B12 deficiency anemia, unspecified[ICD10: D51.9] Ltia BARAKAT DO [facility] CPT-4: 26452 05/27/2019 ([id number]) NURSE/OUTPATIENT VISIT EST Diagnosis: Vitamin B12 deficiency anemia, unspecified[ICD10: D51.9] Lita BARAKAT DO [facility] CPT-4: 74591 05/12/2019 ([id number]) OFFICE/OUTPATIENT VISIT EST Diagnosis: Restless legs syndrome[ICD10: G25.81] Diagnosis: Primary insomnia[ICD10: F51.01] Diagnosis: Anemia, unspecified[ICD10: D64.9] Diagnosis: Type 2 diabetes mellitus with hyperglycemia[ICD10: E11.65] Diagnosis: Vitamin D deficiency, unspecified[ICD10: E55.9] Lita BARAKAT DO [facility] CPT-4: 65099 05/08/2019 ([id number]) OFFICE/OUTPATIENT VISIT EST Diagnosis: Pain in right knee[ICD10: M25.561] Diagnosis: Restless legs syndrome[ICD10: G25.81] Diagnosis: Insomnia, unspecified[ICD10: G47.00] Lita BARAKAT DO [facility] CPT-4: 39804 04/07/2019 ([id number]) NO CHARGE Diagnosis: Chronic obstructive pulmonary disease with (acute) exacerbation[ICD10: J44.1] Diagnosis: Dizziness and giddiness[ICD10: R42] Diagnosis: Generalized anxiety disorder[ICD10: F41.1] Autumn BARAKAT DO [facility] CPT-4: 76645 03/24/2019 ([id number]) OFFICE/OUTPATIENT VISIT EST Diagnosis: Chronic obstructive pulmonary disease with (acute) exacerbation[ICD10: J44.1] Diagnosis: Dizziness and giddiness[ICD10: R42] Autumn BARAKAT [employer] [facility] CPT-4: 90644 03/21/2019 ([id number]) OFFICE/OUTPATIENT VISIT EST Diagnosis: Candidal stomatitis[ICD10: B37.0] Lita BARAKAT [employer] [facility] CPT-4: 49713 03/13/2019 ([id number]) OFFICE/OUTPATIENT VISIT EST Diagnosis: Chronic obstructive pulmonary disease with acute lower respiratory infection[ICD10: J44.0] Diagnosis: Restless legs syndrome[ICD10: G25.81] Lita BARAKAT [employer] [facility] CPT-4: 84373 03/10/2019 ([id number]) OFFICE/OUTPATIENT VISIT EST Diagnosis: Restless legs syndrome[ICD10: G25.81] Lita BARAKAT DO [facility] CPT-4: 14189 02/26/2019 ([id number]) OFFICE/OUTPATIENT VISIT EST Diagnosis: Primary insomnia[ICD10: F51.01] Diagnosis: Chronic obstructive pulmonary disease, unspecified[ICD10: J44.9] Lita BARAKAT DO [facility] CPT-4: 29390 02/13/2019 ([id number]) OFFICE/OUTPATIENT VISIT EST Diagnosis: Chronic obstructive pulmonary disease, unspecified[ICD10: J44.9] Diagnosis: Chronic respiratory failure with hypoxia[ICD10: J96.11] Diagnosis: Chronic respiratory failure with hypercapnia[ICD10: J96.12] Lita BARAKAT DO [facility] CPT-4: 01562 01/14/2019 ([id number]) OFFICE/OUTPATIENT VISIT EST Diagnosis: Chronic respiratory failure with hypoxia[ICD10: J96.11] Diagnosis: Patient's noncompliance with other medical treatment and regimen[ICD10: Z91.19] Diagnosis: Chronic obstructive pulmonary disease with (acute) exacerbation[ICD10: J44.1] Lita BARAKAT [employer] [facility] CPT- 4: 78081 12/25/2018 ([id number]) OFFICE/OUTPATIENT VISIT EST Diagnosis: Essential (primary) hypertension[ICD10: I10] Diagnosis: Type 2 diabetes mellitus with hyperglycemia[ICD10: E11.65] Diagnosis: Hypothyroidism, unspecified[ICD10: E03.9] Diagnosis: Hyperlipidemia, unspecified[ICD10: E78.5] Diagnosis: Acute recurrent maxillary sinusitis[ICD10: J01.01] Ines Banerjee LITA BARAKAT [employer] [facility] CPT-4: 62505 12/09/2018 ([id number]) OFFICE/OUTPATIENT VISIT EST Diagnosis: Candidal stomatitis[ICD10: B37.0] Lita ALYOSCAR Segura Ashley BARAKAT [employer] [facility] CPT-4: 66994 12/05/2018 ([id number]) OFFICE/OUTPATIENT VISIT EST Diagnosis: Acute recurrent sinusitis, unspecified[ICD10: J01.91] Diagnosis: Pain in right knee[ICD10: M25.561] Lita Barakat KEVIN GONZALES Ashley BARAKAT [employer] [facility] CPT-4: 16043 10/23/2018 ([id number]) OFFICE/OUTPATIENT VISIT EST Diagnosis: Restless legs syndrome[ICD10: G25.81] Diagnosis: Basal cell carcinoma of skin of scalp and neck[ICD10: C44.41] Lita BARAKAT DO [facility] CPT-4: 41205 08/21/2018 ([id number]) OFFICE/OUTPATIENT VISIT EST Diagnosis: Chronic obstructive pulmonary disease with acute lower respiratory infection[ICD10: J44.0] Diagnosis: Restless legs syndrome[ICD10: G25.81] Lita BARAKAT DO [facility] CPT-4: 42867 08/07/2018 ([id number]) OFFICE/OUTPATIENT VISIT EST Diagnosis: Chronic obstructive pulmonary disease with acute lower respiratory infection[ICD10: J44.0] Lita BARAKAT DO [facility] CPT-4: 24876 05/23/2018 ([id number]) OFFICE/OUTPATIENT VISIT EST Diagnosis: Candidal stomatitis[ICD10: B37.0] Lita BARAKAT DO [facility] CPT-4: 68162 05/02/2018 ([id number]) OFFICE/OUTPATIENT VISIT EST Diagnosis: Candidal stomatitis[ICD10: B37.0] Diagnosis: Other retention of urine[ICD10: R33.8] Diagnosis: Chronic obstructive pulmonary disease with acute lower respiratory infection[ICD10: J44.0] Autumn BARAKAT DO [facility] CPT-4: 20506 04/29/2018 ([id number]) OFFICE/OUTPATIENT VISIT EST Diagnosis: Chronic obstructive pulmonary disease with acute lower respiratory infection[ICD10: J44.0] Lita BARAKAT DO [facility] CPT-4: 98816 04/22/2018 ([id number]) OFFICE/OUTPATIENT VISIT EST Diagnosis: Unilateral primary osteoarthritis, right knee[ICD10: M17.11] Diagnosis: Squamous cell carcinoma of skin, unspecified[ICD10: C44.92] Lita BARAKAT DO [facility] CPT-4: 19361 01/28/2018 ([id number]) OFFICE/OUTPATIENT VISIT EST Diagnosis: Pain in right knee[ICD10: M25.561] Diagnosis: 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] Lita BARAKAT DO [facility] CPT-4: 62401 01/23/2018 ([id number]) OFFICE/OUTPATIENT VISIT EST Diagnosis: Urinary tract infection, site not specified[ICD10: N39.0] Diagnosis: Chronic obstructive pulmonary disease with acute lower respiratory infection[ICD10: J44.0] Lita BARAKAT DO [facility] CPT-4: 43369 01/02/2018 ([id number]) OFFICE/OUTPATIENT VISIT EST Diagnosis: Chronic obstructive pulmonary disease with (acute) exacerbation[ICD10: J44.1] Autumn BARAKAT DO [facility] CPT- 4: 40394 12/28/2017 ([id number]) OFFICE/OUTPATIENT VISIT EST Diagnosis: Acute bronchitis, unspecified[ICD10: J20.9] Autumn BARAKAT DO [facility] CPT-4: 62265 12/21/2017 ([id number]) OFFICE/OUTPATIENT VISIT EST Diagnosis: Chronic obstructive pulmonary disease with acute lower respiratory infection[ICD10: J44.0] Diagnosis: Pain in right knee[ICD10: M25.561] Autumn BARAKAT DO [facility] CPT-4: 89092 12/17/2017 ([id number]) OFFICE/OUTPATIENT VISIT EST Diagnosis: Laceration without foreign body of right hand, sequela[ICD10: S61.411S] Diagnosis: Restless legs syndrome[ICD10: G25.81] Lita BARAKAT DO [facility] CPT-4: 07053 10/17/2017 OFFICE/OUTPATIENT VISIT EST Diagnosis: Chronic obstructive pulmonary disease with acute lower respiratory infection[ICD10: J44.0] Autumn BARAKAT DO [facility] CPT-4: 50894 08/02/2017 ([id number]) OFFICE/OUTPATIENT VISIT EST Diagnosis: PNEUMOCOCCAL VACCINE[ICD10: Z23] Lita BARAKAT DO [facility] CPT-4: 17961 07/24/2017 OFFICE/OUTPATIENT VISIT EST Diagnosis: Chronic obstructive pulmonary disease with (acute) exacerbation[ICD10: J44.1] Autumn BARAKAT DO [facility] CPT- 4: 04343 07/02/2017 OFFICE/OUTPATIENT VISIT EST Diagnosis: Low back pain[ICD10: M54.5] Ruchi GHOTRA [facility] CPT-4: 88070 05/29/2017 ([id number]) OFFICE/OUTPATIENT VISIT EST Diagnosis: Essential (primary) hypertension[ICD10: I10] Diagnosis: Hypothyroidism, unspecified[ICD10: E03.9] Diagnosis: Dizziness and giddiness[ICD10: R42] Diagnosis: Other abnormality of red blood cells[ICD10: R71.8] Diagnosis: Contracture of muscle, unspecified site[ICD10: M62.40] Lita ALYLINE Ashley BARAKAT [facility] CPT-4: 20632 04/17/2017 OFFICE/OUTPATIENT VISIT EST Diagnosis: Pain in left shoulder[ICD10: M25.512] Ruchi AGNE DonovanFerdinand GASPER [facility] CPT-4: 96648 01/29/2017 ([id number]) OFFICE/OUTPATIENT VISIT EST Diagnosis: Anemia, unspecified[ICD10: D64.9] Lita ALYOSCAR Segura DonovanFerdinand GASPER [facility] CPT-4: 83687 12/27/2016 ([id number]) OFFICE/OUTPATIENT VISIT EST Diagnosis: Other fatigue[ICD10: R53.83] Diagnosis: Other iron deficiency anemias[ICD10: D50.8] Lita ALYLINE DonovanFerdinand GASPER [facility] CPT-4: 51317 12/21/2016 ([id number]) OFFICE/OUTPATIENT VISIT EST Diagnosis: Anemia, unspecified[ICD10: D64.9] Diagnosis: Other fatigue[ICD10: R53.83] Diagnosis: Restless legs syndrome[ICD10: G25.81] Lita AGNE DonovanFerdinand G[facility]PER [facility] CPT-4: 11002 12/14/2016 ([id number]) OFFICE/OUTPATIENT VISIT EST Diagnosis: Anemia, unspecified[ICD10: D64.9] Diagnosis: Other abnormality of red blood cells[ICD10: R71.8] Lita Barakat LITA DonovanFerdinand GASPER [facility] CPT-4: 35335 12/12/2016 ([id number]) OFFICE/OUTPATIENT VISIT EST Diagnosis: Pneumonia, unspecified organism[ICD10: J18.9] Diagnosis: Restless legs syndrome[ICD10: G25.81] Magda HERRMANNONIEL MARC Ashley BARAKAT [facility] CPT-4: 66163 11/14/2016 ([id number]) OFFICE/OUTPATIENT VISIT EST Diagnosis: Candidal stomatitis[ICD10: B37.0] Lita GOODE Daja Ashley BARAKAT [facility] CPT-4: 41944 10/31/2016 ([id number]) OFFICE/OUTPATIENT VISIT EST Diagnosis: Acute upper respiratory infection, unspecified[ICD10: J06.9] Diagnosis: Personal history of pneumonia (recurrent)[ICD10: Z87.01] Magda ALYLINE Ashley BARAKAT [facility] CPT-4: 58809 10/03/2016 ([id number]) OFFICE/OUTPATIENT VISIT EST Diagnosis: Restless legs syndrome[ICD10: G25.81] Diagnosis: Insomnia, unspecified[ICD10: G47.00] Magda Toth JERMAIN JESSICA Ashley BARAKAT [facility] CPT-4: 15100 09/04/2016 ([id number]) OFFICE/OUTPATIENT VISIT EST Diagnosis: Restless legs syndrome[ICD10: G25.81] Diagnosis: Primary insomnia[ICD10: F51.01] Lita ALYLINE Ashley BARAKAT [facility] CPT-4: 99373 08/10/2016 OFFICE/OUTPATIENT VISIT EST Diagnosis: Toxic gastroenteritis and colitis[ICD10: K52.1] Diagnosis: Dizziness and giddiness[ICD10: R42] Diagnosis: Headache[ICD10: R51] Diagnosis: Restless legs syndrome[ICD10: G25.81] Lita Gasper ALIZEONIEL AGNE Ashley BARAKAT [facility] CPT-4: 78750 07/06/2016 ([id number]) OFFICE/OUTPATIENT VISIT EST Diagnosis: Chest pain, unspecified[ICD10: R07.9] Diagnosis: Dyspnea, unspecified[ICD10: R06.00] Magda Toth ELLIS CONDE Ashley BARAKAT [facility] CPT-4: 29367 06/22/2016 ([id number]) OFFICE/OUTPATIENT VISIT EST 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] Diagnosis: PNEUMOCOCCAL VACCINE[ICD10: Z23] Diagnosis: FLU VACCINE[ICD10: Z23] Lita CRAWFORD Ashley [facility] CPT-4: 24340 06/13/2016 ([id number]) OFFICE/OUTPATIENT VISIT EST Diagnosis: Chest pain, unspecified[ICD10: R07.9] Diagnosis: Other forms of dyspnea[ICD10: R06.09] Diagnosis: Shortness of breath[ICD10: R06.02] Diagnosis: Other fatigue[ICD10: R53.83] Magda [facility]LINE [facility]: 81741 06/01/2016 ([id number]) OFFICE/OUTPATIENT VISIT EST Diagnosis: Unspecified hearing loss, left ear[ICD10: H91.92] Diagnosis: Other specified disorders of Eustachian tube, left ear[ICD10: H69.82] Magda ALYLINE [facility]: 99381 11/2015 ([id number]) OFFICE/OUTPATIENT VISIT EST Diagnosis: Impacted cerumen, bilateral[ICD10: H61.23] Diagnosis: DM W/O COMPLICATION TYPE I, 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: E10.9] Diagnosis: Generalized anxiety disorder[ICD10: F41.1] Lita CRAWFORD [facility]erdinand [facility] CPT-[facility]: 80714 04/03/2016 ([id number]) OFFICE/OUTPATIENT VISIT EST Diagnosis: 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] Lita Jasminbetty CRAWFORD [facility] CPT - 4: 07542 03/13/2016 ([id number]) OFFICE/OUTPATIENT VISIT EST Diagnosis: Type 2 diabetes mellitus with hyperglycemia[ICD10: E11.65] Diagnosis: Hyperlipidemia, unspecified[ICD10: E78.5] Diagnosis: Essential (primary) hypertension[ICD10: I10] Diagnosis: Chronic obstructive pulmonary disease, unspecified[ICD10: J44.9] Diagnosis: Testicular hypofunction[ICD10: E29.1] Diagnosis: Male erectile dysfunction, unspecified[ICD10: N52.9] Diagnosis: Anemia, unspecified[ICD10: D64.9] Litajessica BARAKAT DO [facility] CPT-4: 90791 03/06/2016 ([id number]) OFFICE/OUTPATIENT VISIT EST Diagnosis: Type 2 diabetes mellitus with hyperglycemia[ICD10: E11.65] Diagnosis: Hyperlipidemia, unspecified[ICD10: E78.5] Diagnosis: Chronic obstructive pulmonary disease, unspecified[ICD10: J44.9] Diagnosis: Male erectile dysfunction, unspecified[ICD10: N52.9] Lita BARAKAT DO [facility] CPT-4: 27375 03/02/2016 ([id number]) OFFICE/OUTPATIENT VISIT EST Diagnosis: Pain in right foot[ICD10: M79.671] Magda Toth JERMAINDARLING JANET BARAKAT DO [facility] CPT-4: 64198 02/14/2016 OFFICE/OUTPATIENT VISIT EST Diagnosis: Generalized anxiety disorder[ICD10: F41.1] Lita BARAKAT DO [facility] CPT-4: 73641 01/31/2016 ([id number]) OFFICE/OUTPATIENT VISIT EST Diagnosis: Generalized anxiety disorder[ICD10: F41.1] Lita BARAKAT DO [facility] CPT-4: 66850 12/30/2015 ([id number]) OFFICE/OUTPATIENT VISIT EST Diagnosis: Localized swelling, mass and lump, neck[ICD10: R22.1] Lita BARAKAT DO [facility] CPT-4: 73847 12/16/2015 OFFICE/OUTPATIENT VISIT EST Diagnosis: Localized enlarged lymph nodes[ICD10: R59.0] Diagnosis: Otalgia, left ear[ICD10: H92.02] Stephanie BARAKAT DO [facility] CPT-4: 87107 12/06/2015 OFFICE/OUTPATIENT VISIT EST Diagnosis: Localized enlarged lymph nodes[ICD10: R59.0] Diagnosis: Squamous cell carcinoma of skin, unspecified[ICD10: C44.92] Diagnosis: Actinic keratosis[ICD10: L57.0] Stephanie BARAKAT DO [facility] CPT-4: 07587 11/15/2015 OFFICE/OUTPATIENT VISIT EST Diagnosis: Cellulitis of left lower limb[ICD10: L03.116] Diagnosis: Encounter for examination and observation for other specified reasons[ICD10: Z04.8] Diagnosis: Chronic obstructive pulmonary disease, unspecified[ICD10: J44.9] Stephanie BARAKAT DO [facility] CPT-4: 19313 07/22/2015 OFFICE/OUTPATIENT VISIT EST Diagnosis: Other specified joint disorders, left knee[ICD10: M25.862] Diagnosis: Cellulitis of left lower limb[ICD10: L03.116] Diagnosis: Other fatigue[ICD10: R53.83] Diagnosis: Hyperlipidemia, unspecified[ICD10: E78.5] Stephanie BARAKAT DO [facility] CPT-4: 59601 07/01/2015 OFFICE/OUTPATIENT VISIT EST Diagnosis: Pain in left knee[ICD10: M25.562] Diagnosis: Cellulitis of left lower limb[ICD10: L03.116] Diagnosis: Other specified joint disorders, left knee[ICD10: M25.862] Stephanie ManFerdinand [facility] CPT-4: 31361 06/28/2015 OFFICE/OUTPATIENT VISIT EST Diagnosis: PREPATELLAR BURSITIS[ICD9: 726.65] Diagnosis: Cellulitis of knee, left[ICD9: 682.6] Stephanie EspinozaAshleyisabella ManFerdinand GASPER [facility] CPT-4: 54365 06/09/2015 ([id number]) OFFICE/OUTPATIENT VISIT EST Diagnosis: PREPATELLAR BURSITIS[ICD9: 726.65] Diagnosis: Cellulitis of knee, left[ICD9: 682.6] Lita Gasper ALIZEONIEL AGNE DonovanFerdinand GASPER [facility] CPT-4: 00086 06/07/2015 OFFICE/OUTPATIENT VISIT EST Diagnosis: Cellulitis of knee, left[ICD9: 682.6] Stephanie EspinozaAshleyisabella ManFerdinand [facility] CPT-4: 27216 06/03/2015 ([id number]) OFFICE/OUTPATIENT VISIT EST Diagnosis: DM W/O COMPLICATION TYPE II, UNCONTROLLED[ICD9: 250.02] Diagnosis: COPD[ICD9: 496] Lita Jasminbetty LITA DonovanFerdinand GASPER [facility] CPT- 4: 57323 06/01/2015 ([id number]) OFFICE/OUTPATIENT VISIT EST Diagnosis: COPD[ICD9: 496] Diagnosis: DYSPNEA[ICD9: 786.09] Diagnosis: DM W/O COMPLICATION TYPE II, UNCONTROLLED[ICD9: 250.02] Diagnosis: Actinic keratosis[ICD9: 702.0] Lita BARAKAT DO [facility] CPT-4: 19606 02/25/2015 ([id number]) OFFICE/OUTPATIENT VISIT EST Diagnosis: ASTHMA NOS[ICD9: 493.90] Diagnosis: COPD[ICD9: 496] Diagnosis: DM W/O COMPLICATION TYPE II, UNCONTROLLED[ICD9: 250.02] Lita BARAKAT DO [facility] CPT-4: 87948 10/27/2014 OFFICE/OUTPATIENT VISIT EST Diagnosis: DYSPNEA[ICD9: 786.09] Diagnosis: COPD[ICD9: 496] Lita BARAKAT DO [facility] CPT- 4: 28524 10/06/2014 ([id number]) OFFICE/OUTPATIENT VISIT EST Diagnosis: PNEUMONIA, ORGANISM[ICD9: 486] Diagnosis: COPD[ICD9: 496] Diagnosis: DYSPNEA[ICD9: 786.09] Lita BARAKAT [employer] [facility] CPT-4: 46402 09/21/2014 OFFICE/OUTPATIENT VISIT EST Diagnosis: PNEUMONIA, ORGANISM[ICD9: 486] Diagnosis: DYSPNEA[ICD9: 786.09] Diagnosis: COUGH[ICD9: 786.2] Stephanie BARAKAT [employer] [facility] CPT-4: 94795 09/08/2014 OFFICE/OUTPATIENT VISIT EST Diagnosis: COPD with exacerbation[ICD9: 491.21] Diagnosis: COUGH[ICD9: 786.2] Diagnosis: DYSPNEA[ICD9: 786.09] Stephanie BARAKAT [employer] [facility] CPT-4: 24800 09/02/2014 ([id number]) OFFICE/OUTPATIENT VISIT EST Diagnosis: DM W/O COMPLICATION TYPE II, UNCONTROLLED[ICD9: 250.02] Lita BARAKAT [employer] [facility] CPT-4: 11582 08/27/2014 ([id number]) OFFICE/OUTPATIENT VISIT EST Diagnosis: DM W/O COMPLICATION TYPE II, UNCONTROLLED[ICD9: 250.02] Diagnosis: HYPERLIPIDEMIA NEC/NOS[ICD9: 272.4] Diagnosis: HYPERTENSION[ICD9: 401.9] Diagnosis: COPD[ICD9: 496] Diagnosis: FLU VACCINE[ICD10: Z23] Lita PABLO [facility] CPT-4: 75880 08/05/2014 ([id number]) OFFICE/OUTPATIENT VISIT EST Diagnosis: COPD[ICD9: 496] Diagnosis: Lumbar degenerative disc disease[ICD9: 722.52] Lita BARAKAT [facility] CPT-4: 27665 05/05/2014 OFFICE/OUTPATIENT VISIT EST Diagnosis: DYSPNEA[ICD9: 786.09] Diagnosis: COPD[ICD9: 496] Lita [facility] CPT- 4: 49532 03/24/2014 ([id number]) OFFICE/OUTPATIENT VISIT EST Diagnosis: COPD[ICD9: 496] Diagnosis: DYSPNEA[ICD9: 786.09] Lita [facility] CPT[facility]: 90504 03/10/2014 OFFICE/OUTPATIENT VISIT EST Diagnosis: Subacromial bursitis[ICD9: 726.19] Diagnosis: Chronic low back pain[ICD9: 724.2] Diagnosis: Lumbar degenerative disc disease[ICD9: 722.52] Lita [facility]: 54682 12/16/2013 ([id number]) OFFICE/OUTPATIENT VISIT EST Diagnosis: PHARYNGITIS, ACUTE[ICD9: 462] Diagnosis: COPD[ICD9: 496] Lita BARAKAT [facility] CPT- 4: 19818 10/09/2013 OFFICE/OUTPATIENT VISIT EST Diagnosis: COPD[ICD9: 496] Diagnosis: Acute exacerbation of chronic obstructive pulmonary disease (COPD)[ICD9: 491.21] Ruchi Buchanan LITA [facility] CPT-4: 04404 09/18/2013 ([id number]) OFFICE/OUTPATIENT VISIT EST Diagnosis: PNEUMONIA, ORGANISM[ICD9: 486] Diagnosis: DM W/O COMPLICATION TYPE II[ICD9: 250.00] Lita [facility]: 26661 08/13/2013 ([id number]) OFFICE/OUTPATIENT VISIT EST Diagnosis: DM W/O COMPLICATION TYPE II, UNCONTROLLED[ICD9: 250.02] Diagnosis: HYPERLIPIDEMIA NEC/NOS[ICD9: 272.4] Diagnosis: HYPERTENSION[ICD9: 401.9] Diagnosis: DYSPNEA[ICD9: 786.09] Diagnosis: Family history of CABG[ICD9: V17.49] Lita [facility] CPT-[facility]: 94959 07/16/2013 ([id number]) OFFICE/OUTPATIENT VISIT EST Diagnosis: DM W/O COMPLICATION TYPE II, UNCONTROLLED[ICD9: 250.02] Diagnosis: HYPERLIPIDEMIA NEC/NOS[ICD9: 272.4] Diagnosis: HYPERTENSION[ICD9: 401.9] Lita Ramirez [facility] CPT-4: 14972 06/25/2013 OFFICE/OUTPATIENT VISIT EST Diagnosis: COUGH[ICD9: 786.2] Diagnosis: COPD[ICD9: 496] Kimberly [facility]- [facility]: 00274 04/09/2013 ([id number]) OFFICE/OUTPATIENT VISIT EST Diagnosis: Muscle spasm[ICD9: 728.85] Diagnosis: ARTHRALGIA-MULTIPLE SITES[ICD9: 719.49] Lita Ramirez [facility] CPT-[facility]: 85655 02/11/2013 OFFICE/OUTPATIENT VISIT EST Diagnosis: COPD with exacerbation[ICD9: 491.21] Diagnosis: BRONCHITIS, ACUTE[ICD9: 466.0] Ruchi [facility]eter [facility] CPT-4: 63534 01/31/2013 OFFICE/OUTPATIENT VISIT EST Diagnosis: COUGH[ICD9: 786.2] Diagnosis: PHARYNGITIS, ACUTE[ICD9: 462] Diagnosis: SINUSITIS, ACUTE[ICD9: 461.9] Lita Ramirez [facility] CPT-[facility]: 22271 01/20/2013 OFFICE/OUTPATIENT VISIT EST Diagnosis: DIZZINESS/VERTIGO[ICD9: 780.4] Lita BARAKAT [facility] CPT-4: 78693 12/19/2012 OFFICE/OUTPATIENT VISIT EST Diagnosis: Skin lesion of left arm[ICD9: 709.9] Diagnosis: Otitis externa[ICD9: 380.10] Diagnosis: PHARYNGITIS, ACUTE[ICD9: 462] Lita BARAKAT [facility] CPT-4: 71623 10/21/2012 ([id number]) OFFICE/OUTPATIENT VISIT EST Diagnosis: DM W/O COMPLICATION TYPE II, UNCONTROLLED[ICD9: 250.02] Diagnosis: HYPERLIPIDEMIA NEC/NOS[ICD9: 272.4] Diagnosis: HYPERTENSION[ICD9: 401.9] Lita AREVALO [facility] CPT-4: 58780 09/19/2012 ([id number]) OFFICE/OUTPATIENT VISIT EST Diagnosis: DM W/O COMPLICATION TYPE II, UNCONTROLLED[ICD9: 250.02] Diagnosis: HYPERLIPIDEMIA NEC/NOS[ICD9: 272.4] Diagnosis: COPD[ICD9: 496] Lita BARAKAT [facility] CPT- 4: 29548 09/18/2012 ([id number]) OFFICE/OUTPATIENT VISIT EST Diagnosis: BRONCHITIS, ACUTE[ICD9: 466.0] Diagnosis: SINUSITIS, ACUTE[ICD9: 461.9] Lita BARAKAT [facility] CPT-4: 86630 08/28/2012 ([id number]) OFFICE/OUTPATIENT VISIT EST Diagnosis: COPD[ICD9: 496] Diagnosis: DYSPNEA[ICD9: 786.09] Diagnosis: VAC STREP PNEUMONIAE-FLU (Medicare)[ICD9: V06.6] Lita BARAKAT [facility] CPT-4: 33728 07/10/2012 ([id number]) OFFICE/OUTPATIENT VISIT EST Diagnosis: DM W/O COMPLICATION TYPE II, UNCONTROLLED[ICD9: 250.02] Diagnosis: HYPERTENSION[ICD9: 401.9] Diagnosis: HYPERLIPIDEMIA NEC/NOS[ICD9: 272.4] Diagnosis: DIZZINESS/VERTIGO[ICD9: 780.4] Lita CASTELLANOSNDER DO [facility] CPT-4: 85642 05/09/2012 ([id number]) OFFICE/OUTPATIENT VISIT EST Diagnosis: DM W/O COMPLICATION TYPE II, UNCONTROLLED[ICD9: 250.02] Diagnosis: HYPERLIPIDEMIA NEC/NOS[ICD9: 272.4] Diagnosis: HYPERTENSION[ICD9: 401.9] Diagnosis: MALAISE AND FATIGUE[ICD9: 780.79] Lita GOODE Daja SFerdinand JASMINNDER DO [facility] CPT-4: 68370 05/06/2012 OFFICE/OUTPATIENT VISIT EST Diagnosis: COUGH[ICD9: 786.2] Diagnosis: SINUSITIS, ACUTE[ICD9: 461.9] Diagnosis: PHARYNGITIS, ACUTE[ICD9: 462] Lita CRAWFORD SFerdinand [facility]ASMINNDER DO [facility] CPT-4: 82649 10/02/2011 OFFICE/OUTPATIENT VISIT EST Diagnosis: DM W/O COMPLICATION TYPE II, UNCONTROLLED[ICD9: 250.02] Diagnosis: HYPERLIPIDEMIA NEC/NOS[ICD9: 272.4] Diagnosis: HYPERTENSION[ICD9: 401.9] Diagnosis: COPD[ICD9: 496] Lita HERRMANNQUELINE S. ORENDER DO [facility] CPT- 4: 75467 08/07/2011 OFFICE/OUTPATIENT VISIT EST Lita HERRMANNQUELINE S. ORE NDER DO [facility] CPT- 4: 52715 04/03/2011 ([id number]) OFFICE/OUTPATIENT VISIT EST Lita [facility] CPT-4: 64403 01/18/2011 ([id number]) OFFICE/OUTPATIENT VISIT EST Lita TOBAR SUZANNE S. ORENDER DO [facility] CPT-4: 38363 12/19/2010 ([id number]) OFFICE/OUTPATIENT VISIT, EST Lita HOLMAN S. ORENDER DO [facility] CPT-4: 63950 04/05/2010 ([id number]) OFFICE/OUTPATIENT VISIT, EST Lita HOLMAN S. ORENDER DO [facility] CPT-4: 69575 01/13/2010 ([id number]) OFFICE/OUTPATIENT VISIT, EST Lita [facility] CPT-4: 65429 12/23/2009 ([id number]) OFFICE/OUTPATIENT VISIT, [facility] CPT-4: 10158 12/22/2009 ([id number]) OFFICE/OUTPATIENT VISIT, [facility] CPT-4: 09369 12/13/2009 Plan of Care Planned Activity Notes Codes Status Date Visit Diagnosis Plan: Chronic airway obstruction, not [...] ICD-9 : 518.83 ICD-10 : J96.12 11/12/2019 Care Plan: Referral Order SNOMED-CT : 30 [id number] Pending 11/12/2019 Care Plan: Referral Order SNOMED-CT : 30 [id number] Pending 11/12/2019 Visit Diagnosis Plan: Right thyroid nodule Discussion: Check thyroid US ICD-9 : 241.0 ICD-10 : E04.1 09/11/2019 Visit Diagnosis Plan: Chronic obstructive pulmonary di sease, unspecified Discussion: Start Pulmonary Rehab Reviewed results of CT of chest ordered by pulmonology Follow Up: 3 months ICD-9 : 496 ICD-10 : J44.9 09/11/2019 [facility]ment[facility] [phone] [facility] [facility] 09/11/2019 Care Plan: US EXAM OF HEAD AND NECK LOIN C : 98670-2 Pending 09/11/2019 Visit Diagnosis Plan: Chronic bronchitis Discussion: A ugmentin for 10 days ICD-9 : 491.9 ICD-10 : J42 08/07/2019 Appointment: Lita Barakat WPtel: [address] [place] [address] ACUTE ILLNESS 08/07/2019 Visit Diagnosis Plan: Chronic [...] him that overuse of symbicort can cause group home damage and the albuterol is to be used every 4 hours as needed. call office later this week with worsening or no improvement ICD-9 : 491.21 ICD-10 : J44.1 07/14/2019 Appointment: Autumn Oneil [address] [place] [address] ACUTE ILLNESS 07/14/2019 Visit Diagnosis Plan: Primary [...] : K31.89 07/01/2019 Appointment: Lita Barakat WPtel: [address] [place] [address] US FOLLOW UP 07/01/2019 Care Plan: CT ABDOMEN W/O DYE LOINC : 36 103-0 Pending 07/01/2019 Care Plan: Referral Order SNOMED-CT : 30 [id number] Pending 07/01/2019 Visit Diagnosis Plan: Epigastric pain [...] R63.4 06/24/2019 Appointment: [facility] [phone] [facility] [facility] 06/24/2019 Patient Education: Seroquel- [employer] Coupon [id number] https://www.Albumatic/VideoNot.es/resources/getResource/61/[email or web address]-h749-11r9-08 Completed 06/24/2019 Patient Education: ondansetron HCl- [employer] Coupon [id number] https://www.Albumatic/VideoNot.es/resources/getResource/61/4628211t-2861-69r7-h1 Completed 06/24/2019 Care Plan: US EXAM ABDOM COMPLETE LOINC : 52042-5 Pending 06/24/2019 Visit Diagnosis Plan: Anemia Discussion: Check CBC, ir on, B12 If iron still low then will consider iron infusion ICD-9 : 285.9 ICD-10 : D64.9 06/17/2019 Visit Diagnosis Plan: Diplopia Discussion: See ophtham ology May need CT scan of head ICD-9 : 368.2 ICD-10 : H53.2 06/17/2019 Visit Diagnosis Plan: Chronic insomnia Discussion: [...] : J44.9 06/17/2019 Appointment: Lita Barakat WPtel: [address] [place] [address] US FOLLOW UP 06/17/2019 Appointment: Lita Barakat WPtel: [address] [place], [place] [phone] US INJECTION 06/10/2019 Appointment: Lita Barakat WPtel: [address] [place] [address] US INJECTION 06/02/2019 Appointment: Lita Barakat WPtel: [address] [place] [address] US INJECTION 05/27/2019 Appointment: Lita Barakat WPtel: [address] [place] [address] US INJECTION 05/12/2019 Visit Diagnosis Plan: Vitamin [...] : D64.9 05/08/2019 Appointment: Lita Barakat WPtel: [address] [place] [address] US FOLLOW UP 05/08/2019 Visit Diagnosis Plan: Pain in right knee Discussion: S top tramadol and tylenol q HS Trial of Hydrocodone 10/325mg po q HS Recheck 1month ICD-9 : 719.46 ICD-10 : M25.561 04/07/2019 Appointment: Lita Barakat WPtel: [phone] [id number] Hospital Follow Up 04/07/2019 Visit Diagnosis Plan: [...] ICD-10 : F41.1 03/24/2019 Appointment: Autumn Oneil [address] [place], [place] [id number] ACUTE ILLNESS 03/24/2019 Patient Education: hydroxyzine HCl- [employer] Coupon [id number] Completed 03/24/2019 Patient Education: pantoprazole- [employer] Coupon [id number] Completed 03/24/2019 Visit Diagnosis Plan: Dizziness and [...] fice. patient's portable oxygen tank was empty. [id number] patient on importance of monitoring oxygen tank to be sure it does not become empty when he's out of the house. patient states he has an extra one in the car that he will use. ICD-9 : 491.21 ICD-10 : J44.1 03/21/2019 Appointment: Autumn Oneil [address] ACUTE ILLNESS 03/21/2019 Patient Education: ipratropium-albuterol- [employer] José vang [id number] https://www.VideoNot.es.com/samplemd/resources/getResource/61/v5ce61g5-m3k5-4j3w-17 Completed 03/21/2019 Visit Diagnosis Plan: Chronic obstructiv [...] 03/13/2019 Appointment: Lita Barakat WPtel: [phone] [facility] ACUTE ILLNESS 03/13/2019 Patient Education: losartan- [employer] Coupon [id number] Completed 03/13/2019 Patient Education: nystatin- [employer] Coupon [id number] Completed 03/13/2019 Patient Education: fluconazole- [employer] Coupon [id number] Completed 03/13/2019 Visit Diagnosis Plan: Restless legs [...] : J44.0 03/10/2019 Appointment: Lita Barakat WPtel: [address] [place], [place] [phone] ACUTE ILLNESS 03/10/2019 Visit Diagnosis Plan: Restless legs syndrome Discussio n: Stop requip Increase sinemet to TID Add children's chewable MV with iron BID Add magnesium oxide 400mg daily Add Lyrica 75mg po q HS Stop trazadone Recheck 3 weeks Follow Up: 3 weeks ICD-9 : 333.94 ICD-10 : G25.81 02/26/2019 Appointment: Lita Barakat WPtel: [address] [place], [place] [phone] ACUTE ILLNESS 02/26/2019 Visit Diagnosis Plan: Primary insomnia Discussion: Tri al of doxepin 10-20mg po q HS prn sleep ICD-9 : 780.52 ICD-10 : F51.01 02/13/2019 Visit Diagnosis Plan: Chronic obstructive pulmonary di sease, unspecified Discussion: Stable Discussed trip to [place]--will get oxygen setup through [facility] ICD-9 : 496 ICD-10 : J44.9 02/13/2019 Appointment: Lita Barakat WPtel: [address] [place], [place] [phone] FOLLOW UP 02/13/2019 Patient Education: doxepin- [employer] Coupon [id number] https://www.VideoNot.es.2Catalyze/samplemd/resources/getResource/61/51u8q06z-08vs-391m-1p Completed 02/13/2019 Appointment: Lita Barakat WPtel: [address] [place], [place] [phone] CANCELED 01/20/2019 Visit Diagnosis Plan: Chronic obstructive pulmonary di sease, unspecified Discussion: Stable on oxygen Given Symbicort samples Follow Up: 1 months ICD-9 : 496 ICD-10 : J44.9 01/14/2019 Appointment: Lita Barakat WPtel: [address] [place], [place] [phone] Hospital Follow Up 01/14/2019 Visit Diagnosis Plan: [...] : J44.1 12/25/2018 Appointment: Lita Barakat WPtel: [phone] [facility] Hospital Follow Up 12/25/2018 Appointment: Lita Barakat WPtel: [phone] [facility] CANCELED 12/23/2018 Appointment: Ines Banerjee [facility] [place] [id number] CANCELED 12/20/2018 Visit Diagnosis Plan: Essential (primary) [...] ICD-10 : J01.01 12/09/2018 Appointment: Ines Banerjee [facility] [employer] [facility] LAB 12/09/2018 Patient Education: [email or web address]- [employer] Coupon [id number] [email or web address] Completed 12/09/2018 Visit Diagnosis Plan: Candidal stomatitis Discussion: Diflucan for 5 days Hold atorvastatin while taking ICD-9 : 112.0 ICD-10 : B37.0 12/05/2018 Appointment: Lita Barakat WPtel: [address] [place], [place] [id number] 12/05/2018 Patient Education: fluconazole- [employer] Coupon [id number] [email or web address] Completed 12/05/2018 Appointment: Lita Barakat WPtel: [address] [place], [place] [phone] NO SHOW 11/11/2018 Visit Plan: Saline nasal [...] : M25.561 10/23/2018 Appointment: Lita Barakat WPtel: [address] [place], [place] [phone] ACUTE ILLNESS 10/23/2018 Patient Education: prednisone- Optimize[employer] Coupon [phone] [email or web address] Completed 10/23/2018 Care Plan: A1C HPLC LOINC : 53250-8 Pending 09/10/2018 Care Plan: COMPREHEN METABOLIC PANEL LEILA NC : 54566-4 Pending 09/10/2018 Care Plan: CBC Pending 09/10/2018 [...] : G25.81 08/21/2018 Appointment: Lita Barakat WPtel: [address] [place] [address] ACUTE ILLNESS 08/21/2018 Care Plan: Referral Order SNOMED-CT : 30 9897264 Pending 08/21/2018 Visit Diagnosis Plan: Chronic obstructiv [...] : G25.81 08/07/2018 Appointment: Lita Barakat WPtel: [address] [place] [address] LM FOLLOW UP 08/07/2018 Appointment: Lita Barakattel: [address] [place] [address] 07/18/18 1210---see note in chart (km) CANCELED 07/18/2018 Visit Diagnosis Plan: Chronic obstructiv e pulmonary disease with acute lower respiratory infection Discussion: Solumedrol 125mg IM Change t o trelagy 1 inhalation daily Use SVNs with albuterol q4hrs To ER this weekend if worsens Monitor weight/swelling ICD-9 : 496 ICD-10 : J44.0 05/23/2018 Appointment: Lita Barakattel: [address] [place] [address] ACUTE ILLNESS 05/23/2018 Patient Education: Patient Medication Summary Completed 05/23/2018 Visit Diagnosis Plan: Candidal stomatitis Discussion: Diflucan for 7 more days--hold atrovastatin while taking ICD-9 : 112.0 ICD-10 : B37.0 05/02/2018 Appointment: Lita Barakat WPtel: [address] [id number] FOLLOW UP 05/02/2018 Patient Education: Patient Medication [...] ICD-10 : R33.8 04/29/2018 Appointment: Autumn Oneil [address] [place], [place] [address] ACUTE ILLNESS 04/29/2018 Patient Education: Patient Medication [...] : J44.0 04/22/2018 Appointment: Lita Barakat WPtel: [address] [place], [place] [address] Hospital Follow Up 04/22/2018 Patient Education: Patient Medication Summary Completed 04/22/2018 Appointment: Lita Barakat WPtel: [address] [place], [place] [phone] 04/09/18 1640---see message in chart from today [...] : M17.11 01/28/2018 Appointment: Lita Barakat WPtel: [address] [place] [address] ACUTE ILLNESS 01/28/2018 Patient Education: Patient Medication Summary Completed 01/28/2018 Care Plan: Referral Order SNOMED-CT : 30 4608584 Pending 01/28/2018 Care Plan: Referral Order SNOMED-CT : 30 8940450 Pending 01/28/2018 Visit Diagnosis Plan: Functional dyspepsia Discussion: Protonix Call in 1 week on how doing ICD-9 : 536.8 ICD-10 : K30 01/23/2018 Visit Diagnosis Plan: Pain in right knee Discussion: T opical voltaren gel QID ICD-9 : 719.46 ICD-10 : M25.561 01/23/2018 Appointment: Lita Barakat WPtel: [address] [place] [address] ACUTE ILLNESS 01/23/2018 Patient Education: Patient Medication [...] J44.0 01/02/2018 Appointment: Lita Barakat WPtel: [phone] ACUTE ILLNESS 01/02/2018 Patient Education: Patient [...] ICD-10 : J44.1 12/28/2017 Appointment: Autumn Oneil [address] [place] [address] Consult 12/28/2017 Patient Education: Patient Medication Summary [...] ICD-10 : J20.9 12/21/2017 Appointment: Autumn Oneil [address] [place], [place] [phone] ACUTE ILLNESS 12/21/2017 Patient Education: Patient Medication Summary Completed 12/21/2017 Care Plan: X-RAY EXAM OF KNEE 1 OR 2 right LEILA NC : 79085-2 Pending 12/18/2017 Visit Diagnosis Plan: Chronic obstructiv [...] ICD-10 : M25.561 12/17/2017 Appointment: Autumn Oneil [address] [place], [place] [address] ACUTE ILLNESS 12/17/2017 Patient Education: Patient Medication Summary Completed 12/17/2017 Visit Diagnosis Plan: Unilateral primary osteoarthriti s, right knee Discussion: Right knee injection as above Warned of elevated BS after injection ICD-9 : 715.96 ICD-10 : M17.11 12/11/2017 Appointment: [facility]el[facility] [facility] [facility] 12/11/2017 Patient Education: Patient Medication Summary Completed 12/11/2017 Visit Diagnosis Plan: Actinic keratosis Discussion: Cr yotherapy as above If persists then will need excision by Dr. Swanson ICD-9 : 702.0 ICD-10 : L57.0 11/07/2017 Appointment: Lita Barakat WPtel: [address] [place] [address] ACUTE ILLNESS 11/07/2017 Patient Education: Patient Medication [...] : S61.411S 10/17/2017 Appointment: Lita Barakat WPtel: [address] [place] [address] ER Follow UP 10/17/2017 Patient Education: Patient Medication Summary Completed 10/17/2017 Appointment: Lita Barakat WPtel: [address] [place] [address] [place] Consult 08/15/2017 Visit Diagnosis Plan: Chronic [...] ICD-10 : J44.0 08/02/2017 Appointment: Autumn Oneil [address] [place] [address] ACUTE ILLNESS 08/02/2017 Patient Education: Patient Medication Summary Completed 08/02/2017 Patient Education: Patient Medication Summary Completed 07/31/2017 Care Plan: CHEST X-RAY 2VW FRONTAL&LATL LOINC : 19462-7 Pending 07/31/2017 Appointment: Lita Barakat WPtel: [address] [place], [place] [phone] [place] INJECTION 07/24/2017 Patient Education: Patient Medication Summary Completed 07/24/2017 Visit Diagnosis Plan: Chronic obstructiv e pulmonary disease with (acute) exacerbation Discussion: solumedrol 125 mg IM shot gi rdoy at this visit. albuterol breathing treatment given at this visit to assist with breathing. BREO inhaler sample given to patient to start today and take once daily. CXRAY ordered to be completed today to assess lung function. If worsening symptoms, go to ED. ICD-9 : 491.21 ICD-10 : J44.1 07/02/2017 Appointment: Autumn Oneil [address] [place] [address] ACUTE ILLNESS 07/02/2017 Patient Education: Patient Medication Summary Completed 07/02/2017 Care Plan: CHEST X-RAY 2VW FRONTAL&LATL LOINC : 74197-8 Pending 07/02/2017 Care Plan: MRI LUMBAR SPINE W/O DYE LOIN C : 23864-6 Pending 05/30/2017 Visit Plan: MRI at [facility] [place] codone 5.325 1 po q 4-6 hours prn pain #40 NR and Cyclobenzaprine (ERx) Continue warm packs for pain RTC if no improvement 05/29/2017 Appointment: Ruchi Buchanan WPtel: [address] [place], [place] [phone] ACUTE ILLNESS 05/29/2017 Patient Education: Patient Medication Summary Completed 05/29/2017 Appointment: Lita Barakat WPtel: [address] [place], [place] [address] [place] CANCELED 05/24/2017 Patient Education: Patient Medication Summary Completed 05/22/2017 Care Plan: X-RAY EXAM L-S SPINE 2/3 VWS LOINC : 87915-3 Pending 05/22/2017 Appointment: Lita Barakat WPtel: [address] [place], [place] [phone] [place] LAB 04/17/2017 Patient Education: Patient Medication Summary Completed 04/17/2017 Referral: Cassidy Demetrius WPtel: [address] [facility]6676[facility] Referral Initiated 04/05/2017 Appointment: Lita Barakat WPtel: [address] [place], [place] [phone] 03/30/17 0930---spoke with patient about ointments (km Consult 03/30/2017 Appointment: Lita Barakat WPtel: [address] [place], [place] [id number] 03/29/17 1320---spoke with patient, requip refilled wasn't received at pharmacy so verbally called (km) Consult 03/29/2017 Patient Education: Patient Medication Summary Completed 03/01/2017 Care Plan: CHEST X-RAY 2VW FRONTAL&LATL LOINC : 07793-1 Pending 03/01/2017 Visit Diagnosis Plan: Bursitis of left shoulder Discus yesi: Injection as above ICD-9 : 726.10 ICD-10 : M75.52 02/01/2017 Appointment: Lita Barakat WPtel: [address] [place], [place] [phone] 01/31 confirmed ~sl WORK IN 02/01/2017 Patient Education: Patient Medication Summary Completed 02/01/2017 Care Plan: X-RAY EXAM OF SHOULDER LOINC : 66588-2 Pending 01/30/2017 Visit Plan: May take OTC Tylenol/Ibuprof en as directed XRay at [facility] of left shoulder Tramadol 50mg 1 po q 6 hours prn pain called to [facility]. Sedation warning given (no driving, etc) RTC if no improvement 01/29/2017 Appointment: Ruchi Buchanan WPtel: [address] [place], [place] [phone] ACUTE ILLNESS 01/29/2017 Appointment: Ruchi Buchanan WPtel: [address] [place] [address] ACUTE ILLNESS 01/29/2017 Patient Education: Patient Medication Summary Completed 01/29/2017 Appointment: Lita Barakattel: [address] [place] [address] [place] Consult 01/10/2017 Appointment: Lita Barakat WPtel: [address] [place] [address] 12/27/2016 Patient Education: Patient Medication Summary Completed [...] : R53.83 12/21/2016 Appointment: Lita Barakat WPtel: [address] [place] [address] ACUTE ILLNESS 12/21/2016 Patient Education: Patient Medication Summary Completed 12/21/2016 Appointment: Lita Barakat WPtel: [address] [place] [address] CANCELED 12/18/2016 Visit Diagnosis Plan: Restless legs [...] D64.9 12/14/2016 Appointment: L[facility]Ptel[facility] [facility] 12/13 confirmed ~sl WORK IN 12/14/2016 Appointment: Lita Barakat WPtel: [address] [place], [place] [address] [place] CANCELED 12/14/2016 Patient Education: Patient Medication Summary Completed 12/14/2016 Appointment: Lita Barakat WPtel: [address] [place] [address] [place] LAB 12/12/2016 Patient Education: Patient Medication Summary Completed 12/12/2016 Appointment: Lita Barakat WPtel: [address] [place] [address] in ER this weekend--called for reports Consult 12/11/2016 Appointment: Lita Barakat WPtel: [address] [place] [address] [place] CANCELED 12/04/2016 Visit Diagnosis Plan: Pneumonia, [...] : G25.81 11/14/2016 Appointment: Magda [facility]oth [facility] [facility] MED[facility] REVIEW 11/14/2016 Patient Education: Patient Medication Summary Completed 11/14/2016 Appointment: Lita Barakat WPtel: [address] [place], [place] [phone] [place] RESCHEDULED 11/02/2016 Visit Diagnosis Plan: Candidal stomatitis Discussion: Diflucan and Nystatin Hold atorvastatin while taking diflucan ICD-9 : 112.0 ICD-10 : B37.0 10/31/2016 Appointment: Lita Barakat WPtel: [address] [place] [address] ACUTE ILLNESS 10/31/2016 Patient Education: Patient Medication Summary Completed 10/31/2016 Appointment: Lita Barakat WPtel: [address] [place] [address] [place] Consult 10/23/2016 Appointment: Lita Barakat WPtel: [address] [place], [place] [phone] [place] CANCELED 10/18/2016 Visit Plan: Rx as above Wear O2 at all t imes as instructed by Dr Chacon Continue breathing treatments Supportive care otherwise reviewed Follow up ingrid if not improving 10/03/2016 Appointment: Lita Barakat WPtel: [address] [place], [place] [phone] [place] CANCELED 10/03/2016 Appointment: Magda Toth [address] [place] [address] ACUTE ILLNESS 10/03/2016 Patient Education: Patient Medication Summary Completed 10/03/2016 Visit Plan: Titrate requip to 1.5mg x 1 week Call if not helpful and will increase to 2mg qHS NO MORE nyquil at bedtime - discussed potential effects of decongestants on heart, oversedating himself, etc Will increase requip, then amitriptyline if needed to desired effect 09/04/2016 Appointment: Magda Toth [address] [place] [address] ACUTE ILLNESS 09/04/2016 Patient Education: Patient Medication Summary Completed 09/04/2016 Visit Plan: Stop requip and try elavil C ryotherapy as above See ENT for removal of right ear lesion 08/22/2016 Appointment: Lita Barakat WPtel: [address] [place] [address] ACUTE ILLNESS 08/22/2016 Patient Education: Patient Medication Summary Completed 08/22/2016 Visit Plan: Trial of requip 1mg q HS Res tart zoloft Recheck 1month 08/10/2016 Appointment: Lita Barakat WPtel: [address] [place] [address] ACUTE ILLNESS 08/10/2016 Patient Education: Patient Medication Summary Completed 08/10/2016 Visit Plan: Stop HCTZ Flagyl for diarrhe a Hydrate Discussed meds for restless legs Zofran prn Nausea 07/06/2016 Appointment: Lita Barakat WPtel: [address] [place] [address] 07/05 confirmed~sl Hospital Follow Up 07/06/2016 Patient Education: Patient Medication Summary Completed 07/06/2016 Visit Plan: Reviewed with Dr Gasper Palacios sidering his recent history, instructed him to go straight to the ER called to notify her so she can meet him there 06/22/2016 Appointment: Magda Toth [address] [place] [address] ACUTE ILLNESS 06/22/2016 Patient Education: Patient Medication Summary Completed 06/22/2016 Visit Plan: Continue current meds Prevna r 13 and High Dose Flu given 06/13/2016 Appointment: Lita Barakat WPtel: [address] [place] [address] 06/13 confirmed~sl WORK IN 06/13/2016 Patient Education: Patient Medication Summary Completed 06/13/2016 Appointment: Lita Barakat WPtel: [address] [place] [address] just went over current medications CANCELED 06/08/2016 Visit Plan: Reviewed POC with Dr Barakat Stat cbc, cmp, d dimer, troponin, bnp, ekg, cxr If any worsening of symptoms while awaiting results, patient instructed to go to ER or call 911 06/01/2016 Appointment: Magda Toth 2[address] [facility] ACUTE ILLNESS 06/01/2016 Patient Education: Patient Medication Summary Completed 06/01/2016 Referral: José Miguel Swanson WPtel: [address] 04/[address] swanson's office, patient [...] and treatment 04/26/2016 Appointment: Magda Toth 2[address] [facility] ACUTE ILLNESS 04/26/2016 Patient Education: Patient Medication Summary Completed 04/26/2016 Care Plan: Referral Order SNOMED-CT : 30 9832198 Pending 04/26/2016 Visit Plan: Left ear flushed after conse nt with warm water with peroxide with ear syringe Patient tolerated well Ear exam is wnl following flushing Follow up PRN 04/05/2016 Appointment: Magda Toth Lianna [facility]6676[facility] ACUTE ILLNESS 04/05/2016 Patient Education: Patient Medication Summary Completed 04/05/2016 Visit Plan: Increase Levemir to 25u sc d aily Increase sertraline to 2 full tablets daily--200mg Debrox or cerumenex to bilateral ears q HS for 3 nights then flush or fwup for fushing Check lab in 2mos then fwup 04/03/2016 Appointment: Lita Barakat WPtel: [address] [place], [place] [phone] 03/31 7 lm ~sl FOLLOW UP 04/03/2016 Patient Education: Patient Medication Summary Completed 04/03/2016 Visit Plan: Patient informed of correct dosage of levemir and how to administer. Patient verbalizes understanding and will call if any questions/concerns. 10 Units of Levemir given in office SC to right lower abdom en. Patient tolerated well. Site without redness/irritation. 03/13/2016 Appointment: Lita Barakat WPtel: [address] [place], [place] [phone] SPECIAL 03/13/2016 Patient Education: Patient Medication Summary Completed 03/13/2016 Appointment: Lita Barakat WPtel: [address] [place], [place] [phone] LAB 03/06/2016 Patient Education: Patient Medication Summary Completed 03/06/2016 Visit Plan: Patient saw Dr. Chacon this week and was given prednisone taper for COPD Continue current meds Accuchecks daily Patient will return on Sunday morning for fasting lab incuding CBC, CMP, TSH, free T4, HbA1C, Lipids, Testosterone, PSA 03/02/2016 Appointment: Lita Barakat WPtel: [address] [place] [address] 03/01 confirmed ~sl FOLLOW UP 03/02/2016 Patient [...] doing 02/17/2016 Appointment: Lita Barakat WPtel: [address] [place] [address] WORK IN 02/17/2016 Patient Education: Patient Medication Summary Completed 02/17/2016 Visit Plan: Xrays to further evaluate Alvarez spect heel spur(s) Will call with results Has had injections in the past that were helpful Dr Barakat can do them or can refer to podiatry if warranted 02/14/2016 Appointment: Magda Toth [address] [place] [address] ACUTE ILLNESS 02/14/2016 Patient Education: Patient Medication Summary Completed 02/14/2016 Visit Plan: Increase Zoloft to 150mg cooper ly 01/31/2016 Appointment: Lita Barakat WPtel: [address] [place] [address] [place] 01/26 confirmed `sl FOLLOW UP 01/31/2016 Patient Education: Patient Medication Summary Completed 01/31/2016 Visit Plan: Decrease citalopram to 20mg q AM for 1 week then stop Start zoloft 50mg q HS for 1 week then increase to 100mg q HS 12/30/2015 Appointment: Lita Barakat WPtel: [address] [place] [address] [place] 12/28 confirmed~sl ACUTE ILLNESS 12/30/2015 Patient Education: Patient Medication Summary Completed 12/30/2015 Visit Plan: Check Neck US 12/16/2015 Appointment: Lita Barakat WPtel: [address] [place] [phone] 12/14 lm ~sl 12/15 confirmed-sp FOLLOW UP 12/16/2015 Patient Education: Patient Medication Summary Completed 12/16/2015 Care Plan: US EXAM OF HEAD AND NECK LOIN C : 83388-7 Ordered 12/16/2015 Appointment: Stephanie Rios WPtel: [address] [place], [place] [phone] [place] 12/09 confirmed-sp 12/12 lm ~sl Patient [...] PO TID 12/06/2015 Appointment: Stephanie Rios WPtel: [address] [place], [place] [address] ACUTE ILLNESS 12/06/2015 Patient Education: Patient Medication Summary Completed 12/06/2015 Referral: Lisbeth Darby WPtel: [facility] [address] [facility] 11/18/15 called luther at [place] office and confirmed time and date of appointment with patient~sl Initiated 11/18/2015 Visit Plan: Referral to Dermatology for removal of facial skin lesions Cefdinir PO bid Topical Mupirocin to skin lesions bid 11/15/2015 Appointment: Stephanie Rios WPtel: [address] [place], [place] [phone] ACUTE ILLNESS 11/15/2015 Patient Education: Patient Medication Summary Completed 11/15/2015 Visit Plan: Continue current meds Accuch ecks daily Fwup with ophthamology as scheduled Will check lab in 3mos then fwup due to recent meds that will affect blood sugar 10/05/2015 Appointment: Lita Barakat WPtel: [address] [place], [place] [phone] 10/04/15 appt confirmed cn Annual Well Visit 08/2016 Patient Education: Patient Medication Summary Completed 10/05/2015 Visit Plan: Trajenta -1 sample box given Return visit in 6 weeks for fasting labs Notify for worsening symptoms such as Increased redness, swelling, pain or drainage of Rt. knee 07/22/2015 Appointment: Stephanie Rios WPtel: [address] [place], [place] [phone] 07/21 vm left cn FOLLOW UP 07/22/2015 Patient Education: Patient Medication Summary Completed 07/22/2015 Visit Plan: Continue to change dressing twice daily and apply Mupirocin Complete Doxycycline as directed. Follow-up for worsening symptoms, such as increased swelling, redness or pain. 07/01/2015 Appointment: Stephanie Rios WPtel: [address] [place], [place] [phone] FOLLOW UP 07/01/2015 Patient Education: Patient Medication Summary Completed 07/01/2015 Visit Plan: Pressure dressing applied to draining wound left knee. Instructed to change dressing twice daily and continue Mupirocin topical Doxycycline PO bid x 10 days Wound culture obtained. Wound tissue sent to pathology Follow-up in 3 days 06/28/2015 Appointment: Stephanie Rios WPtel: [address] [place], [place] [phone] ACUTE ILLNESS 06/28/2015 Patient Education: Patient Medication Summary Completed 06/28/2015 Visit Plan: Complete antibiotics Follow- up for increased tenderness, swelling or drainage. 06/09/2015 Appointment: Stephanie Rios WPtel: [facility] 06/08/15 lm FOLLOW UP 06/09/2015 Patient Education: Patient Medication Summary Completed 06/09/2015 Visit Plan: Apply pressure dressing toda y Continue antibiotics and topical Mupirocin Follow-up in 2 days Bursa drained from open area using pressure--serosanguinous drainage 06/07/2015 Appointment: Stephanie Rios WPtel: [facility] 06/04/15 confirmed with patient FOLLOW UP 0 06/07/2015 Patient Education: Patient Medication Summary Completed 06/07/2015 Visit Plan: Wound culture Lt. knee Apply mupirocin to open wound bid Clindamycin 600 mg PO bid x 10 days Follow-up on Sunday06/03/2015 Appointment: Stephanie Rios WPtel: [address] [place], [place] [phone] ACUTE ILLNESS 06/03/2015 Patient Education: Patient Medication Summary Completed 06/03/2015 Visit Plan: Accuchecks daily Check CMP, HbA1C today Patient is noncompliant with meds and diet but patient says he is doing everything he is supposed to do Wants to try performomist instead of albuterol in SVN 06/01/2015 Appointment: Lita Barakat WPtel: [address] [place] [address] 05/28 appt confirmed cn FOLLOW UP 06/01/20 Patient Education: Patient Medication Summary Completed 06/01/2015 Visit Plan: Change Breo Ellipta to Advai r 500/50 1 p BID this next month Continue turdoza Use albuterol prn Check CMP, HbA1C today Accuchecks daily Cryotherapy as above 02/25/2015 Appointment: Lita Barakat WPtel: [facility] 02/24 appt confirmed and explained needed payment he said ok FOLLOW UP 02/25/2015 Patient Education: Patient Medication Summary Completed 02/25/2015 Referral: Lopez Chacon [facility] S [facility] C&D [id number] [place] Will put patient on cancellation list Initiated 12/08/2014 Appointment: Lita Barakat WPtel: [address] [place] [address] Hospital Follow Up 10/29/2014 Visit Plan: Finish prednisone Continue S VNs with albuterol QID See pulmonology and start Pulmonary rehab Once again discussed taking it easy this winter--that he is high risk for exacerbation 10/27/2014 Appointment: Lita Barakat WPtel: [address] [place] [address] FOLLOW UP 10/27/2014 Patient Education: Patient Medication Summary Completed 10/27/2014 Appointment: Lita Barakat WPtel: [address] [place], [place] [address] FOLLOW UP 10/26/2014 Appointment: Stephanie Rios WPtel: [address] [place] [address] WORK IN 10/21/2014 Patient Education: Patient Medication Summary Completed 10/21/2014 Patient Education: Patient Medication Summary Completed 10/19/2014 Visit Plan: Continue oxygen and SVNS wit h duoneb Increase farxiga to 10mg daily Diflucan 100mg daily for 1week 10/06/2014 Appointment: Lita Barakat WPtel: [address] [place] [phone] Moved appt time to 2:45pm FOLLOW UP 2014 Patient Education: Patient Medication Summary Completed 10/06/2014 Visit Plan: Finish omnicef Continue Breo BID and Turdoza Use SVNS with duoneb at least TID for next 2weeks then go to prn 09/21/2014 Appointment: Lita Barakat WPtel: [address] [place] [address] Hospital Follow Up 09/21/2014 Patient Education: Patient Medication Summary Completed 09/21/2014 Patient Education: [facility] - [employer] - Ventolin HFA - 18+ - Dynamic Portal ID Completed 09/21/2014 Appointment: Stephanie Rios WPtel: [address] [place], [place] [phone] Scheduled by 09/07 patient rescheduled to 09/08 with Stephanie. Hospital Follow Up 09/08/2014 Patient Education: Patient Medication Summary Completed 09/08/2014 Appointment: Stephanie Rios WPtel: [address] [place], [place] [phone] FOLLOW UP 09/02/2014 Patient Education: Patient Medication Summary Completed 09/02/2014 Patient Education: [employer] - Antibi otics, Analgesics 18+, Oral Contraceptives F 18+ Completed 09/02/2014 Appointment: Lita Barakat WPtel: [address] [place], [place] [phone] UA 08/27/2014 Patient Education: Patient Medication Summary [...] prn sleep 08/10/2014 Appointment: Lita Barakat WPtel: [address] [place] [address] Annual Well Visit 08/10/2014 Patient Education: Patient Medication Summary Completed 08/10/2014 Appointment: Lita Barakat WPtel: [address] [place], [place] [phone] LAB 08/05/2014 Patient Education: Patient Medication Summary Completed 08/05/2014 Visit Plan: ECHO results reviewed Contin ue Breo and Turdoza Pt starts PT this afternoon for back--has had one epidural with no help in pain 05/05/2014 Appointment: Lita Barakat WPtel: [address] [place] [address] FOLLOW UP 05/05/2014 Patient Education: Patient Medication Summary Completed 05/05/2014 Visit Plan: Continue Breo and Turdoza Camargo s heart tests scheduled next week Will see surgeon for removal of skin cancer to neck after done with cardiac workup 03/24/2014 Appointment: Lita Barakat WPtel: [address] [place] [address] FOLLOW UP 03/24/2014 Patient Education: Patient Medication Summary Completed 03/24/2014 Visit Plan: Proceed with cardiology eval uation as patient is has numerous risk factors for CAD Change Symbicort to Breo 1p BID and add Turdorza 1p BID Recheck in weeks Check 2-D ECHO and lexiscan 03/10/2014 Appointment: Lita Barakat WPtel: [address] [place] [address] FOLLOW UP 03/10/2014 Patient Education: Patient Medication Summary Completed 03/10/2014 Visit Plan: Shoulder injection as above Back brace to use when doing any lifting for stability 12/16/2013 Appointment: Lita Barakat WPtel: [address] [place] [address] ACUTE ILLNESS 12/16/2013 Patient Education: Patient Medication Summary Completed 12/16/2013 Visit Plan: Continue symbicort and Turdo za Salt water gargles Omnicef 300mg 2 po daily for 1wk Phenergan with codeine 10/09/2013 Appointment: Lita Barakat WPtel: [address] [place] [address] WORK IN 10/09/2013 Patient Education: Patient Medication Summary Completed 10/09/2013 Appointment: Ruchi Buchanan WPtel: [address] [place] [address] ACUTE ILLNESS 09/18/2013 Patient Education: Patient Medication Summary Completed 09/18/2013 Visit Plan: Check on repeat CXR Finish a bx Start Tradjenta to replace metformin 08/13/2013 Appointment: Lita Barakat WPtel: [address] [place] [address] 08/12 Hospital Follow Up 08/13/2013 Patient Education: Patient Medication Summary Completed 08/13/2013 Visit Plan: Admit to hospital 08/06/2013 Appointment: Stephanie Rios WPtel: [address] [place] [address] ACUTE ILLNESS 08/06/2013 Patient Education: Patient Medication Summary Completed 08/06/2013 Visit Plan: Continue current meds Contin ue accuchecks daily Proceed with stress test due to high risk for CAD 07/16/2013 Appointment: Lita Barakat WPtel: [address] [place] [address] FOLLOW UP 07/16/2013 Patient Education: Patient Medication Summary Completed 07/16/2013 Appointment: Lita Barakat WPtel: [address] [place] [address] LAB 06/25/2013 Patient Education: Patient Medication Summary Completed 06/25/2013 Visit Plan: prednisone and azithromycin. Doing CBC and mycoplasma blood draw. Will continue inhaler and albuterol breathing treatments. 04/09/2013 Appointment: Kimberly Villalba WPtel: [address] [place] [address] ACUTE ILLNESS 04/09/2013 Patient Education: Patient Medication Summary Completed 04/09/2013 Appointment: Lita Barakat WPtel: [address] [place] [address] ACUTE ILLNESS 02/11/2013 Patient Education: Patient Medication Summary Completed 02/11/2013 Appointment: Ruchi Buchanan WPtel: [address] [place] [address] ACUTE ILLNESS 01/31/2013 Patient Education: Patient Medication Summary Completed 01/31/2013 Visit Plan: Cefdinir and medrol dose pac k. Codeine/guiaf cough syrup. Has colonoscopy on Sunday. Pt. is to notify if fever occurs or symptoms worsen. Hydration and rest. 01/20/2013 Appointment: Kimberly Villalba WPtel: [address] [place] [address] ACUTE ILLNESS 01/20/2013 Patient Education: Patient Medication Summary Completed 01/20/2013 Visit Plan: Scopalamine patch and vestib ular exercises 12/19/2012 Appointment: Lita Barakat WPtel: [address] [place] [address] ACUTE ILLNESS 12/19/2012 Patient Education: Patient Medication Summary Completed 12/19/2012 Visit Plan: Dr. Swanson consult if no impr ovement in hearing. Pt. reports he will notify if no better in one week. [facility]am consult for skin lesion. 10/21/2012 Appointment: Kimberly Villalba WPtel: [address] [place] [address] ACUTE ILLNESS 10/21/2012 Patient Education: Patient Medication Summary Completed 10/21/2012 Appointment: Lita Barakattel: [address] [place] [address] LAB 09/19/2012 Patient Education: Patient Medication Summary Completed 09/19/2012 Visit Plan: Check fasting lab in AM--CMP , Lipids, HbA1C 09/18/2012 Appointment: Lita Barakat WPtel: [address] [place] [address] FOLLOW UP 09/18/2012 Patient Education: Patient Medication Summary Completed 09/18/2012 Appointment: Lita Barakattel: [address] [place] [address] appt time scheduled sooner FOLLOW UP 09/05 Visit Plan: Doxycycline and Prednisone I ncrease SVN to QID Add back Symbicort 160/4.5 2 p BID 08/28/2012 Appointment: Lita Barakat WPtel: [address] [place], [place] [id number] [place] FOLLOW UP 08/28/2012 Patient Education: Patient Medication Summary Completed 08/28/2012 Appointment: Lita Barakat WPtel: [address] [place], [place] [phone] Annual Well Visit 07/10/2012 Patient Education: Patient Medication Summary Completed 07/10/2012 Visit Plan: Finish Z-pack Add Nasonex Ad d Meclizine Vestibular exercises Continue current meds and accuchecks Check lab and fwup in 4mos 05/09/2012 Appointment: Lita Barakat WPtel: [address] [place], [place] [phone] [place] number no longer works FOLLOW UP 2 Patient Education: Patient Medication Summary Completed 05/09/2012 Appointment: Lita Barakat WPtel: [address] [place], [place] [phone] [place] LAB 05/06/2012 Patient Education: Patient Medication Summary Completed 05/06/2012 Appointment: Lita Barakat WPtel: [address] [place], [place] [phone] [place] LAB 05/02/2012 Appointment: Lita Barakat WPtel: [address] [place], [place] [phone] [place] INJECTION 02/05/2012 Patient Education: Patient Medication Summary Completed 02/05/2012 Visit Plan: cefdinir. Will focus on rest and fluids. Pt. reports he is using breathing treatments as needed. Pt. will monitor for worsening symptoms or fever. 10/02/2011 Appointment: Kimberly Villalba WPtel: [address] [place], [place] [phone] ACUTE ILLNESS 10/02/2011 Patient Education: Patient Medication Summary Completed 10/02/2011 Appointment: Lita Barakat WPtel: [address] [place] [phone] [place] INJECTION 08/10/2011 Patient Education: Patient Medication Summary Completed 08/10/2011 Visit Plan: Continue current meds Restar t Advair Restart exercise Flu shot given 08/07/2011 Appointment: Lita Barakattel: [address] [place] [phone] [place] FOLLOW UP 08/07/2011 Patient Education: Patient Medication Summary Completed 08/07/2011 Appointment: Lita Barakattel: [address] [place] [phone] [place] LAB 07/26/2011 Patient Education: Patient Medication Summary Completed 07/26/2011 Visit Plan: ALEKSANDER Carmen Continue Metformin but change to BID Add Lantus 25u sc q PM BS readings in 1wk 04/03/2011 Appointment: Lita Barakattel: [address] [place], [place] [phone] ACUTE ILLNESS 04/03/2011 Patient Education: Patient Medication Summary Completed 04/03/2011 Appointment: Lita Barakat WPtel: [address] [place] [phone] [place] INJECTION 01/19/2011 Patient Education: Patient Medication Summary Completed 01/19/2011 Appointment: Lita Barakattel: [address] [place] [phone] [place] ACUTE ILLNESS 01/18/2011 Patient Education: Patient Medication Summary Completed 01/18/2011 Appointment: Lita Barakattel: [address] [place] [phone] [place] INJECTION 12/21/2010 Patient Education: Patient Medication Summary Completed 12/21/2010 Appointment: Lita Barakattel: [address] [place] [phone] [place] FOLLOW UP 12/19/2010 Patient Education: Patient Medication Summary Completed 12/19/2010 Appointment: Lita Barakat WPtel: [address] [place] [phone] [place] LAB 12/07/2010 Patient Education: Patient Medication Summary Completed 12/07/2010 Appointment: Kimberly Villalba WPtel: [address] [place], [place] [phone] ACUTE ILLNESS 04/05/2010 Patient Education: Patient Medication Summary Completed 04/05/2010 Appointment: Lita Barakat WPtel: [address] [place] [phone] WORK IN 03/14/2010 Patient Education: Patient Medication Summary Completed 03/14/2010 Appointment: Lita Barakat WPtel: [address] [place] [phone] [place] LAB 03/02/2010 Visit Plan: HbA1C in 3mos. Continue Accu checks BID alternating times. Switch lexapro to celexa 01/13/2010 Appointment: Lita Barakat WPtel: [address] [place], [place] [phone] FOLLOW UP 01/13/2010 Patient Education: Patient Medication Summary Completed 01/13/2010 Appointment: Lita Barakat WPtel: [address] [place], [place] [phone] FOLLOW UP 01/11/2010 Visit Plan: Pt. will continue the Avalox and Doxycycline regimen as prescribed the previous day. He has been advised to continue inhalers, breathing treatments and oxygen therapy for at least the weekend. Moderate activity without strenuous exercise. The pt. will seek immediate re-eval if his symptoms worsen. 12/23/2009 Appointment: Kimberly Villalba WPtel: [address] [place], [place] [phone] FOLLOW UP 12/23/2009 Patient Education: Patient Medication [...] tomorrow morning. 12/22/2009 Appointment: Kimberly Villalba WPtel: [address] [place] [address] ACUTE ILLNESS 12/22/2009 Patient Education: Patient Medication Summary Completed 12/22/2009 Appointment: Kimberly Villalba WPtel: [address] [place] [address] FOLLOW UP 12/21/2009 Appointment: Lita Barakat WPtel: [address] [place] [address] [place] INJECTION 12/16/2009 Patient Education: Patient Medication Summary Completed 12/16/2009 Appointment: Kimberly Villalba WPtel: [address] [place] [address] ACUTE ILLNESS 12/13/2009 Patient Education: Patient Medication Summary Completed 12/13/2009 Care Plan: X-RAY EXAM OF SHOULDER lt shoulder (pain ra diates across the shoulder) Hand carried orders to [facility] LOINC : 49110-5 Ordered 12/13/2009 Care Plan: X-RAY EXAM THORAC SPINE 2VWS Hand carried order LOINC : 72750-0 Ordered 12/13/2009 Care Plan: X-RAY EXAM RIBS UNI 2 VIEWS Posterior ribs of lt. side Pt. hand carries order to [facility] LOINC : 85103-3 Ordered 12/13/2009 Referral: José Miguel Swanson WPtel: [address] [address] [place] Referral Appointment Requested Referral: José Miguel Swanson WPtel: [address] [address] [place] Referral Appointment Requested Referral: Chandu Quarles WPtel: [address] Quarles for screening colonoscopy. P atient notified that [facility] office will book appt with him Initiated Referral: Santosh Machado WPtel: [facility] [place] A [id number] [place] Referral Appointment Requested Referral: José Miguel Swanson WPtel: [address] [address] [place] Referral Initiated Referral: Lopez Chacon [address] [facility] [address] [place] [address] [place] Referral Initiated Referral: Demetrius Rodriguez WPtel: [address] [address] [place] Referral Appointment Requested Referral: José Miguel Swanson WPtel: [address] [address] [place] Referral Appointment Requested Referral: José Miguel Swanson WPtel: [address] [address] [place] Referral Initiated Instructions Comment . Saline nasal flushes prn. Tylenol/Motr in prn headache. Notify if persists/symptoms worsening. . MRI at [facility] Hydrocodone 5.325 1 po q [...]
--- OUTSIDE RECORDS SUMMARY | 2019-12-31 00:42 | XMS REPORT | CCD ---
Author Author Leandro Barakat D.O. Organization [facility] Address [address] [place] [address] Phone Care Team Providers Care Library Associate Name Role Phone Lita Barakat D.O., PP Unavailable CCM Unavailable Summary Purpose Interface Exchange Insurance Providers Payer name Policy type / Coverage type Covered green party ID Effective Begin Date Effective End Date [employer] Medicare Part B [id number] 2018 Unknown Family history Brother Diagnosis Age At Onset Cancer Unknown Father Diagnosis Age At Onset Heart disease Unknown Mother Diagnosis Age At Onset Heart disease Unknown Social History Social History Element Codes Description Effective Dates Tobacco history SNOMED CT: 4201704 Former smoker quit 15 years ago 08/07/2011 [...] R07.9 06/22/2016 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: [...] Fill Instructions Seroquel 50 mg tablet RxNorm: 290233 1 Tablet(s) Oral QPM as ne eded for sleep 10/07/2019 12/05/2019 Active ropinirole 4 mg tablet RxNorm: 792783 3 TABLET(S) BY [facility] DAILY AT BEDTIME FOR RESTLESS LEGS 09/29/2019 12/27/2019 Active Generic For:REQU IP 4 MG TABLET 09/29/2019 7:52:42 AM N O T I C E Last quantity doesn't match original quantity ipratropium 0.5 mg-albuterol 3 mg (2.5 mg base)/3 mL n ebulization soln RxNorm: 3450810 USE 1 VIAL IN NEBULIZER EVERY FOUR HOURS (THIS REPLACES ALBUTEROL SOLUTION) 09/26/2019 10/15/2019 Inactive Generic For:*DUO NEB 2.5-0.5 MG/3 ML SOLN 09/26/2019 9:08:53 AM ropinirole 4 mg tablet RxNorm: 699479 3 TABLET(S) BY [facility] DAILY AT BEDTIME FOR RESTLESS LEGS 09/26/2019 09/28/2019 Inactive Generic For:REQU IP 4 MG TABLET 09/26/2019 9:08:48 AM N O T I C E Last quantity doesn't match original quantity hydrocodone 10 mg-acetaminophen 325 mg tablet RxNorm: 605564 1 Tablet(s) Oral Q4H as needed for pain 09/09/2019 09/09/2019 Inactive hydrocodone 10 mg-acetaminophen 325 mg tablet RxNorm: 328489 1 Tablet(s) Oral Q4H as needed for pain 09/09/2019 09/08/2019 Inactive ondansetron HCl 4 mg tablet RxNorm: 933626 1 Tablet(s) Oral QPM for nausea 08/12/2019 10/10/2019 Inactive ipratropium 0.5 mg-albuterol 3 mg (2.5 mg base)/3 mL n ebulization soln RxNorm: 9348348 1 Unit Dose INH Q4H 08/12/2019 09/25/2019 Inactive replaces albuterol solution Augmentin 875 mg-125 mg tablet RxNorm: 398071 1 Tablet(s) Oral two times a day 08/07/2019 08/17/2019 Inactive prednisone 20 mg tablet RxNorm: 665285 1 Tablet(s) Oral QD 08/05/2008/04/2019 Inactive prednisone 20 mg tablet RxNorm: 989840 1 Tablet(s) Oral QD 08/05/2008/06/2019 Inactive Levaquin 500 mg tablet RxNorm: 323314 1 Tablet(s) Oral QD Replaces azithromycin (z-pack) 07/31/2019 08/05/2019 Inactive Levaquin 500 mg tablet RxNorm: 785146 1 Tablet(s) Oral QD Replaces azithromycin (z-pack) 07/21/2019 07/26/2019 Inactive Levaquin 500 mg tablet RxNorm: 667339 1 Tablet(s) Oral QD Replaces azithromycin (z-pack) 07/21/2019 07/20/2019 Inactive Zithromax Z-Gui 250 mg tablet RxNorm: 456955 Tablet(s) Oral 019 07/22/2019 Inactive Zithromax Z-Gui 250 mg tablet RxNorm: 474199 Tablet(s) Oral 019 07/15/2019 Inactive Symbicort 160 mcg-4.5 mcg/actuation HFA aerosol inhaler RxNo rm: 3757046 2 Puff(s) Inhalation two times a day 07/14/2019 07/14/2019 Inactive Tessalon Perles 100 mg capsule RxNorm: 883832 1 Capsule(s) Oral Q8H as needed 07/14/2019 08/06/2019 Inactive Seroquel 50 mg tablet RxNorm: 846219 1 Tablet(s) Oral QPM as ne eded for sleep 07/01/2019 10/06/2019 Inactive ondansetron HCl 4 mg tablet RxNorm: 313249 1 Tablet(s) Oral QPM for nausea 06/24/2019 07/24/2019 Inactive Seroquel 25 mg tablet RxNorm: 223018 1 Tablet(s) Oral every nig ht at bedtime 06/19/2019 06/18/2019 Inactive Seroquel 25 mg tablet RxNorm: 898715 1 Tablet(s) Oral every nig ht at bedtime 06/19/2019 06/30/2019 Inactive trazodone 150 mg tablet RxNorm: 144053 1/2 Tablet(s) PO QHS as needed for sleep 06/11/2019 06/17/2019 Inactive replaces PA on doxep in trazodone 150 mg tablet RxNorm: 184954 1/2 Tablet(s) PO QHS as needed for sleep 05/12/2019 06/11/2019 Inactive replaces PA on doxep in cyanocobalamin (vit B-12) 1,000 mcg/mL injection solution Rx Norm: 968541 1 injection weekly for 4 weeks 1 Milliliter(s) Inj 05/09/2019 No Stop Date Active Vitamin D3 5,000 unit tablet RxNorm: 952688 1 Tablet(s) PO QD 05/09 No Stop Date Active ferrous sulfate 325 mg (65 mg iron) tablet RxNorm: 021299 1 Tab let(s) PO QD 05/09/2019 No Stop Date Active magnesium oxide 400 mg (241.3 mg magnesium) tablet RxNorm: 1 42787 1 Tablet(s) PO QHS 05/09/2019 No Stop Date Active ropinirole 4 mg tablet RxNorm: 880206 3 TABLET(S) BY [facility] DAILY AT BEDTIME FOR RESTLESS LEGS 03/26/2019 06/23/2019 Inactive Generic For:REQU IP 4 MG TABLET 03/26/2019 11:23:36 AM N O T I C E Last quantity doesn't match original quantity pantoprazole 40 mg tablet,delayed release RxNorm: 563397 Tablet(s) TAKE 1 TABLET BY MOUTH DAILY FOR STOMACH 03/24/2019 06/21/2019 Inactive Gener ic For:PROTONIX 40MG TAB EC 01/03/2019 1:23:44 PM hydroxyzine HCl 10 mg tablet RxNorm: 478786 1 Tablet(s) PO BID as needed 03/24/2019 04/06/2019 Inactive ipratropium-albuterol 0.5 mg-3 mg(2.5 mg base)/3 mL ne bulization soln RxNorm: 8756013 1 Unit Dose INH Q4H 03/21/2019 No Stop Date Active replaces albuterol solution meclizine 12.5 mg tablet RxNorm: 459178 1 Tablet(s) PO BID as neede d 03/21/2019 No Stop Date Active losartan 100 mg tablet RxNorm: 496993 1 Tablet(s) PO QD replace s lisinopril 03/13/2019 09/08/2019 Inactive fluconazole 100 mg tablet RxNorm: 233401 1 Tablet(s) PO QD 03/13/20 19 03/19/2019 Inactive nystatin 100,000 unit/mL oral suspension RxNorm: 448550 5 Unit( s) PO QID 03/13/2019 03/26/2019 Inactive tramadol 50 mg tablet RxNorm: 278579 1 Tablet(s) PO TID as needed for pain TAKE 2 TABS OF EXTRA STRENGTH TYLENOL WITH EACH DOSE 03/10/2019 04/06/2019 Inactive Generic For:*ULTRAM 50 MG TABLET 01/15/2019 4:55:26 PM Sinemet CR 50 mg-200 mg tablet,extended release RxNorm: 8343 41 1 Tablet(s) PO TID 02/26/2019 08/24/2019 Inactive Generic For:*SIN EMET CR 50/200 TABLET SA 07/08/2018 3:09:11 PM trazodone 150 mg tablet RxNorm: 163137 1/2 Tablet(s) PO QHS as needed for sleep 02/13/2019 02/12/2019 Inactive trazodone 150 mg tablet RxNorm: 912273 1/2 Tablet(s) PO QHS as needed for sleep 02/13/2019 02/25/2019 Inactive replaces PA on doxep in doxepin 10 mg capsule RxNorm: 9826510 1-2 Capsule(s) PO QHS prn sleep 02/13/2019 02/13/2019 Inactive Novolog U-100 Insulin aspart 100 unit/mL subcutaneous soluti on RxNorm: 230377 INJECT 10 UNIT(S) SUBCUTANEOUSLY BEFORE MEALS 01/31/2019 05/30/2019 In active 01/31/2019 1:39:10 PM ipratropium-albuterol 0.5 mg-3 mg(2.5 mg base)/3 mL ne bulization soln RxNorm: 1472189 1 Unit Dose INH Q4H 01/17/2019 03/20/2019 Inactive replaces albuterol solution tramadol 50 mg tablet RxNorm: 923998 1 Tablet(s) PO TID as needed for pain TAKE 2 TABS OF EXTRA STRENGTH TYLENOL WITH EACH DOSE 01/15/2019 02/03/2019 Inactive Generic For:*ULTRAM 50 MG TABLET 01/15/2019 4:55:26 PM Sinemet CR 50 mg-200 mg tablet,extended release RxNorm: 8343 41 1 Tablet(s) PO BID 01/03/2019 02/25/2019 Inactive Generic For:*SIN EMET CR 50/200 TABLET 07/08/2018 3:09:11 PM losartan 100 mg tablet RxNorm: 941062 1 Tablet(s) PO QD replace s lisinopril 01/03/2019 03/12/2019 Inactive Symbicort 160 mcg-4.5 mcg/actuation HFA aerosol inhaler RxNo rm: 4147418 2 Puff(s) INH BID 01/03/2019 01/02/2019 Inactive pantoprazole 40 mg tablet,delayed release RxNorm: 417068 TAKE 1 TABLET BY MOUTH DAILY FOR STOMACH 01/03/2019 03/23/2019 Inactive Generic For:GA OTONIX 40MG TAB EC 01/03/2019 1:23:44 PM nystatin 100,000 unit/mL oral suspension RxNorm: 799050 Unit(s) 5 Unit(s) PO QID swish and spit 01/02/2019 11/11/2019 Inactive Incruse Ellipta 62.5 mcg/actuation powder for inhalation RxN orm: 8807460 1 Capsule(s) INH QD 12/25/2018 No Stop Date Active Tessalon Perles 100 mg capsule RxNorm: 506505 1 Capsule(s) PO T ID for cough 12/25/2018 02/25/2019 Inactive Medrol (Gui) 4 mg tablets in a dose pack RxNorm: 942385 Tablet(s) PO Use as directed 12/23/2018 01/02/2019 Inactive Levemir FlexTouch U-100 Insulin 100 unit/mL (3 mL) sub cutaneous pen RxNorm: 248045 20 Unit(s) SQ QD with pen needles 12/13/2018 05/11/2019 Inactiv e prednisone 20 mg tablet RxNorm: 063929 1 Tablet(s) PO QD 12/12/2018 0 12/11/2018 Inactive prednisone 20 mg tablet RxNorm: 958620 1 Tablet(s) PO QD 12/12/2018 0 12/16/2018 Inactive promethazine 6.25 mg-codeine 10 mg/5 mL syrup RxNorm: 541186 5 Milliliter(s) PO QHS as needed for cough 12/09/2018 12/18/2018 Inactive cefdinir 300 mg capsule RxNorm: 176696 1 Capsule(s) PO BID 12/10/19 19 12/18/2018 Inactive fluconazole 100 mg tablet RxNorm: 033577 1 Tablet(s) PO QD 12/06/19 19 12/08/2018 Inactive ropinirole 4 mg tablet RxNorm: 212667 3 Tablet(s) PO QHS for re stless legs 12/04/2018 03/03/2019 Inactive Novolog U-100 Insulin aspart 100 unit/mL subcutaneous soluti on RxNorm: 638970 INJECT 10 UNIT(S) SUBCUTANEOUSLY BEFORE MEALS 12/04/2018 01/30/2019 In active 12/04/2018 10:02:42 AM nystatin 100,000 unit/mL oral suspension RxNorm: 956751 5 Unit(s) PO QID swish and spit 11/25/2018 12/18/2018 Inactive ropinirole 4 mg tablet RxNorm: 856950 3 Tablet(s) PO QHS for re stless legs 11/04/2018 12/03/2018 Inactive prednisone 20 mg tablet RxNorm: 950934 1 Tablet(s) PO BID 10/23/2018 10/29/2018 Inactive ropinirole 4 mg tablet RxNorm: 231428 3 Tablet(s) PO QHS for re stless legs 10/14/2018 11/04/2018 Inactive pantoprazole 40 mg tablet,delayed release RxNorm: 508741 1 Tablet(s) PO QD forstomach 10/10/2018 01/02/2019 Inactive Symbicort 160 mcg-4.5 mcg/actuation HFA aerosol inhaler RxNo rm: 2695575 2 Puff(s) INH BID 10/10/2018 01/03/2019 Inactive Novolog U-100 Insulin aspart 100 unit/mL subcutaneous soluti on RxNorm: 967598 INJECT 10 UNIT(S) SUBCUTANEOUSLY BEFORE MEALS 10/10/2018 12/03/2018 In active 10/10/2018 11:30:01 AM Sinemet CR 50 mg-200 mg tablet,extended release RxNorm: 8343 41 1 Tablet(s) PO BID 09/26/2018 01/03/2019 Inactive Generic For:*SIN EMET CR 50/200 TABLET SA 07/08/2018 3:09:11 PM ropinirole 4 mg tablet RxNorm: 736544 2 Tablet(s) PO QHS for re stless legs 09/18/2018 10/13/2018 Inactive metformin ER 1,000 mg tablet,extended release 24hr RxNorm: 1 813529 1 Tablet(s) PO BID 09/09/2018 12/18/2018 Inactive ropinirole 4 mg tablet RxNorm: 646371 2 Tablet(s) PO QHS for re stless legs 08/21/2018 09/17/2018 Inactive doxycycline hyclate 100 mg capsule RxNorm: 9238902 1 Capsule(s) PO BID 08/07/2018 08/13/2018 Inactive ropinirole 4 mg tablet RxNorm: 451594 1 Tablet(s) PO QHS replac es 1mg dose 08/07/2018 08/20/2018 Inactive ropinirole 2 mg tablet RxNorm: 303672 TAKE 3 TABLETS BY MOUTH DAILY AT BEDTIME DO NOT EXCEED 3 TABLETS PER DAY!!!! 07/31/2018 08/06/2018 Inactive Generic For:REQUIP 2 MG TABLET 07/30/2018 3:50:28 PM Symbicort 160 mcg-4.5 mcg/actuation HFA aerosol inhaler RxNo rm: 7582868 2 Puff(s) INH BID 07/12/2018 10/09/2018 Inactive Sinemet CR 50 mg-200 mg tablet,extended release RxNorm: 8343 41 TAKE 1 TABLET BY MOUTH TWICE DAILY 07/08/2018 09/26/2018 Inactive Generic For:*S INEMET CR 50/200 TABLET SA 07/08/2018 3:09:11 PM losartan 100 mg tablet RxNorm: 744215 1 Tablet(s) PO QD replace s lisinopril 06/17/2018 12/13/2018 Inactive Novolog U-100 Insulin aspart 100 unit/mL subcutaneous soluti on RxNorm: 767451 10 Unit(s) SQ AC 06/17/2018 10/09/2018 Inactive albuterol sulfate 2.5 mg/3 mL (0.083 %) solution for n ebulization RxNorm: 965455 Milliliter(s) INH USE 1 VIAL IN NEBULIZE R EVERY FOUR HOURS NEEDED FOR WHEEZING OR SHORTNESS OF BREATH 06/13/2018 01/16/2019 Inactive Generic For:*PROVENTIL 0.83 MG/ML SOLUTN 06/13/2013 2:04:46 PM ropinirole 2 mg tablet RxNorm: 283647 3 Tablet(s) PO QH S DO NOT EXCEED 6MG (3 TABLETS) PER DAY!!!! 06/13/2018 07/31/2018 Inactive atorvastatin 40 mg tablet RxNorm: 672724 Tablet(s) TAKE 1 TABLET BY MOUTH EVERY DAY 05/13/2018 12/18/2018 Inactive Generic For:LIPI TOR 40MG TAB 05/01/2018 8:37:31 AM Sinemet CR 50 mg-200 mg tablet,extended release RxNorm: 8343 41 1 Tablet(s) PO BID 05/08/2018 07/06/2018 Inactive Lidocaine Viscous 2 % mucosal solution RxNorm: 9096961 5 Milliliter(s) PO QID as needed 05/02/2018 08/06/2018 Inactive Diflucan 100 mg tablet RxNorm: 623316 1 Tablet(s) PO QD 05/02/2018 Inactive atorvastatin 40 mg tablet RxNorm: 360250 TAKE 1 TABLET BY MOUTH EVERY DAY 05/01/2018 05/13/2018 Inactive Generic For:LIPITOR 40MG TAB 05/01/2018 8:37:31 AM nystatin 100,000 unit/mL oral suspension RxNorm: 720495 5 Unit(s) PO QID (before meals and at bedtime) 04/24/2018 04/30/2018 Inactive Ventolin HFA 90 mcg/actuation aerosol inhaler RxNorm: 494541 2 Puff(s) INH Q4H as needed one inhaler for home and one inhaler for car 04/23/201812/18 Inactive Mucinex 600 mg tablet, extended release RxNorm: 374205 1 Tablet(s) PO BID for congestion 04/22/2018 05/21/2018 Inactive prednisone 10 mg tablet RxNorm: 359562 Tablet(s) PO as directeds 08/06/2018 Inactive ropinirole 2 mg tablet RxNorm: 197540 3 Tablet(s) PO QH S DO NOT EXCEED 6MG (3 TABLETS) PER DAY!!!! 04/09/2018 05/08/2018 Inactive gabapentin 300 mg capsule RxNorm: 047879 1-2 Capsule(s) PO QHS 0702/201804/08/2018 Inactive ropinirole 2 mg tablet RxNorm: 055712 1 Tablet(s) PO QHS 03/28/2018 0 04/08/2018 Inactive gabapentin 300 mg capsule RxNorm: 106019 1-2 Capsule(s) PO QHS 02/2303/29/2018 Inactive gabapentin 300 mg capsule RxNorm: 589501 1-2 Capsule(s) PO QHS 02/2203/13/2018 Inactive gabapentin 300 mg capsule RxNorm: 521862 2 Capsule(s) PO QHS 201703/11/2018 Inactive ropinirole 2 mg tablet RxNorm: 813411 1 Tablet(s) PO QHS 02/28/2018 0 03/28/2018 Inactive ropinirole 2 mg tablet RxNorm: 167068 1 Tablet(s) PO QHS 02/28/2018 0 02/27/2018 Inactive gabapentin 300 mg capsule RxNorm: 370677 1 Capsule(s) PO QHS 201702/27/2018 Inactive pantoprazole 40 mg tablet,delayed release RxNorm: 547722 1 Tablet(s) PO QD forstomach 01/23/2018 05/22/2018 Inactive Voltaren 1 % topical gel RxNorm: 261819 1 Gram(s) TOP QID to ri ght knee 01/23/2018 02/04/2018 Inactive metformin ER 500 mg tablet,extended release 24hr RxNorm: 860 975 2 Tablet(s) PO BID 01/09/2018 12/08/2018 Inactive Requip 1 mg tablet RxNorm: 427268 1 Tablet(s) PO QHS 01/09/201802/27 Inactive prednisone 20 mg tablet RxNorm: 262568 1 Tablet(s) PO T ID for 3 days then 1 po BID for 3 days then one daily for 3 days 01/02/2018 02/03/2018 Inactiv e Levaquin 500 mg tablet RxNorm: 418346 1 Tablet(s) PO QD 01/02/2018 Inactive ProAir HFA 90 mcg/actuation aerosol inhaler RxNorm: 851122 2 Puff(s) INH Q4H as needed 12/28/2017 No Stop Date Active please switch to ventolin if insurance doesn't cover montelukast 10 mg tablet RxNorm: 040381 1 Tablet(s) PO QD 12/28/2017 02/03/2018 Inactive Levaquin 500 mg tablet RxNorm: 001209 1 Tablet(s) PO QD 12/21/2017 Inactive ProAir HFA 90 mcg/actuation aerosol inhaler RxNorm: 569134 2 Puff(s) INH Q4H as needed 12/21/2017 12/27/2017 Inactive please switch to ventolin if insurance doesn't cover doxycycline hyclate 100 mg tablet RxNorm: 011228 1 Tablet(s) PO BID 12/17/2017 12/26/2017 Inactive Levemir FlexTouch U-100 Insulin 100 unit/mL (3 mL) sub cutaneous pen RxNorm: 217291 20 Unit(s) SQ QD with pen needles---Due for labs 12/11/2017 02/03/2018 Inactive Requip 1 mg tablet RxNorm: 264915 1 Tablet(s) PO QHS 12/10/201712/09 Inactive Requip 1 mg tablet RxNorm: 360359 1 Tablet(s) PO QHS 12/10/201701/09 Inactive albuterol sulfate 2.5 mg/3 mL (0.083 %) solution for n ebulization RxNorm: 644906 Milliliter(s) INH USE 1 VIAL IN NEBULIZE R EVERY FOUR HOURS NEEDED FOR WHEEZING OR SHORTNESS OF BREATH 12/05/2017 06/13/2018 Inactive Generic For:*PROVENTIL 0.83 MG/ML SOLUTN 06/13/2013 2:04:46 PM Tudorza Pressair 400 mcg/actuation breath activated RxNorm: 6717247 1 Puff(s) INH BID 12/03/2017 12/10/2017 Inactive Levemir FlexTouch U-100 Insulin 100 unit/mL (3 mL) sub cutaneous pen RxNorm: 351699 10 Unit(s) SQ QD with pen needles---Due for labs 11/16/2017 12/10/2017 Inactive Zofran ODT 4 mg disintegrating tablet RxNorm: 984746 1 Tablet(s) PO Q4H as needed for nausea 10/17/2017 02/04/2018 Inactive Efudex 5 % topical cream RxNorm: 194627 Application TOP QD prn to precancer skin lesions 10/17/2017 02/03/2018 Inactive Sinemet CR 50 mg-200 mg tablet,extended release RxNorm: 8343 41 1 Tablet(s) PO BID 10/17/2017 02/05/2018 Inactive Sinemet CR 50 mg-200 mg tablet,extended release RxNorm: 8343 41 1 Tablet(s) PO QHS 09/25/2017 10/16/2017 Inactive gabapentin 600 mg tablet RxNorm: 475962 1 Tablet(s) PO BID 08/15/20 17 08/14/2017 Inactive gabapentin 600 mg tablet RxNorm: 642491 1 Tablet(s) PO BID 08/15/20 17 12/10/2017 Inactive Novolog U-100 Insulin aspart 100 unit/mL subcutaneous soluti on RxNorm: 493720 10 Unit(s) SQ AC 08/15/2017 02/03/2018 Inactive Novolog 100 unit/mL subcutaneous solution RxNorm: 240075 10 Uni t(s) SQ AC 08/13/2017 08/14/2017 Inactive prednisone 20 mg tablet RxNorm: 570054 2 Tablet(s) PO QD 08/02/2017 1 10/04/2016 Inactive gabapentin 600 mg tablet RxNorm: 633398 Tablet(s) 1 Tab let(s) PO QHS replaces 300mg dose 07/09/2017 08/14/2017 Inactive Breo Ellipta 100 mcg-25 mcg/dose powder for inhalation RxNor m: 7190852 1 Unit Dose INH QD 07/02/2017 08/30/2017 Inactive Tudorza Pressair 400 mcg/actuation breath activated RxNorm: 6748643 1 Puff(s) INH BID 06/18/2017 12/02/2017 Inactive gabapentin 600 mg tablet RxNorm: 140268 1 Tablet(s) PO QHS repl aces 300mg dose 06/14/2017 07/08/2017 Inactive metformin ER 1,000 mg tablet,extended release 24hr RxNorm: 1 277797 1 Tablet(s) PO BID 05/29/2017 01/08/2018 Inactive cyclobenzaprine 5 mg tablet RxNorm: 177374 1 Tablet(s) PO TID 05/2906/07/2017 Inactive metformin ER 1,000 mg tablet,extended release 24hr RxNorm: 8 39003 1 Tablet(s) PO BID 05/25/2017 05/28/2017 Inactive metformin ER 1,000 mg tablet,extended release 24hr RxNorm: 8 14863 1 Tablet(s) PO BID 05/22/2017 05/24/2017 Inactive Amaryl 2 mg tablet RxNorm: 707813 1 Tablet(s) PO BID 05/01/201702/03 Inactive glimepiride 2 mg tablet RxNorm: 258321 1 Tablet(s) PO BID 04/19/2017 02/03/2018 Inactive ferrous sulfate 325 mg (65 mg iron) tablet RxNorm: 176709 1 Tab let(s) PO QHS 04/17/2017 02/03/2018 Inactive Requip 4 mg tablet RxNorm: 906254 1 Tablet(s) PO BID 04/12/201704/11 Inactive Requip 4 mg tablet RxNorm: 768704 1 Tablet(s) PO BID 04/12/201704/15 Inactive Levemir FlexTouch 100 unit/mL (3 mL) subcutaneous insulin pe n RxNorm: 812479 10 Unit(s) SQ QD with pen needles---Due for labs 04/05/2017 11/15/2017 In active Silenor 3 mg tablet RxNorm: 787917 1 Tablet(s) PO QHS 04/05/201709/25 Inactive ropinirole 4 mg tablet RxNorm: 940889 1 Tablet(s) PO QHS 03/29/2017 0 04/01/2017 Inactive ropinirole 4 mg tablet RxNorm: 416003 1 Tablet(s) PO QHS 03/29/2017 0 03/28/2017 Inactive Requip 4 mg tablet RxNorm: 379843 1 Tablet(s) PO QHS 03/28/201704/01 Inactive gabapentin 600 mg tablet RxNorm: 283159 1 Tablet(s) PO QHS repl aces 300mg dose 03/28/2017 04/15/2017 Inactive Requip 4 mg tablet RxNorm: 547750 1 Tablet(s) PO QHS 03/23/201703/27 Inactive gabapentin 600 mg tablet RxNorm: 601360 1 Tablet(s) PO QHS 03/13/20 17 03/12/2017 Inactive gabapentin 600 mg tablet RxNorm: 527432 1 Tablet(s) PO QHS 03/13/20 17 03/27/2017 Inactive gabapentin 300 mg capsule RxNorm: 515758 1 Capsule(s) PO QPM 201603/12/2017 Inactive Generic For:NEURONTIN 300 MG CAPSULE 01/22/2017 10:10:39 AM losartan 100 mg tablet RxNorm: 446890 1 Tablet(s) PO QD replace s lisinopril 02/21/2017 06/17/2018 Inactive gabapentin 300 mg capsule RxNorm: 244348 TAKE 1 CAPSULE BY MOUT H EVERY EVENING 01/22/2017 02/21/2017 Inactive Generic For:NEURONTI N 300 MG CAPSULE 01/22/2017 10:10:39 AM gabapentin 300 mg capsule RxNorm: 277511 1 Capsule(s) PO QPM 201601/21/2017 Inactive Requip 4 mg tablet RxNorm: 506134 1 Tablet(s) PO QHS 12/21/201603/20 Inactive Effient 10 mg tablet RxNorm: 322930 1 Tablet(s) PO QD 12/12/201612/23 Inactive gabapentin 300 mg capsule RxNorm: 424839 1 Capsule(s) PO QPM 201612/03/2016 Inactive gabapentin 300 mg capsule RxNorm: 803609 1 Capsule(s) PO QPM 201612/13/2016 Inactive Requip 4 mg tablet RxNorm: 203988 1 Tablet(s) PO QHS 11/28/201612/21 Inactive atorvastatin 40 mg tablet RxNorm: 932804 Tablet(s) 1 Tablet(s) PO Q D 11/22/2016 08/18/2017 Inactive atorvastatin 40 mg tablet RxNorm: 666179 1 Tablet(s) PO QD 11/23/19 17 11/21/2016 Inactive ropinirole 1 mg tablet RxNorm: 520814 2.5 Tablet(s) PO QPM for legs/sleep 11/14/2016 11/27/2016 Inactive nystatin 100,000 unit/mL oral suspension RxNorm: 748148 5 Unit(s) PO QID swish and spit 10/31/2016 02/03/2018 Inactive fluconazole 100 mg tablet RxNorm: 513654 1 Tablet(s) PO QD 10/31/19 17 11/09/2016 Inactive doxycycline hyclate 100 mg capsule RxNorm: 3872438 1 Capsule(s) PO BID 10/03/2016 10/12/2016 Inactive Levemir FlexTouch 100 unit/mL (3 mL) subcutaneous insulin pe n RxNorm: 026112 10 Unit(s) SQ QD with pen needles 09/18/2016 04/04/2017 Inactive amitriptyline 25 mg tablet RxNorm: 908041 1 Tablet(s) P O QHS as needed for sleep 09/04/2016 10/17/2016 Inactive ropinirole 1 mg tablet RxNorm: 518525 1.5 Tablet(s) PO QPM for legs/sleep 09/04/2016 11/13/2016 Inactive amitriptyline 25 mg tablet RxNorm: 170722 1 Tablet(s) P O QHS as needed for sleep 08/22/2016 09/03/2016 Inactive clopidogrel 75 mg tablet RxNorm: 311008 1 Tablet(s) PO QD 08/10/2016 10/17/2016 Inactive Zoloft 100 mg tablet RxNorm: 240589 2 Tablet(s) PO QHS 08/10/2016 Inactive atorvastatin 40 mg tablet RxNorm: 770043 1 Tablet(s) PO QD 08/10/2010/17/2016 Inactive ropinirole 1 mg tablet RxNorm: 810593 1 Tablet(s) PO QPM for le gs/sleep 08/10/2016 09/03/2016 Inactive losartan 100 mg tablet RxNorm: 646019 1 Tablet(s) PO QD replace s lisinopril 07/20/2016 02/21/2017 Inactive Zofran 4 mg tablet RxNorm: 134094 1 Tablet(s) PO Q4H as needed for nausea 07/06/2016 10/17/2016 Inactive Flagyl 500 mg tablet RxNorm: 896796 1 Tablet(s) PO TID 07/06/2016 Inactive Plavix 75 mg tablet RxNorm: 363976 1 Tablet(s) PO QD 06/08/201607/05 Inactive isosorbide mononitrate ER 30 mg tablet,extended release 24 h r RxNorm: 023992 1 Tablet(s) PO QAM 06/08/2016 08/09/2016 Inactive atorvastatin 40 mg tablet RxNorm: 069889 1 Tablet(s) PO QD 06/08/20 16 08/09/2016 Inactive hydrochlorothiazide 12.5 mg tablet RxNorm: 490820 1 Tablet(s) PO QA M 06/08/2016 07/05/2016 Inactive metformin ER 1,000 mg tablet,extended release 24hr RxNorm: 8 53462 1 Tablet(s) PO BID 06/08/2016 09/05/2016 Inactive metoprolol tartrate 25 mg tablet RxNorm: 787972 1/2 Tablet(s) PO BI D 06/08/2016 08/09/2016 Inactive Zoloft 100 mg tablet RxNorm: 116021 2 Tablet(s) PO QHS 04/03/2016 Inactive metformin ER 1,000 mg tablet,extended release 24hr RxNorm: 8 74966 Tablet(s) 1 Tablet(s) PO QD 03/30/2016 12/18/2018 Inactive Levemir FlexTouch 100 unit/mL (3 mL) subcutaneous insulin pe n RxNorm: 636511 10 Unit(s) SQ QD 03/09/2016 03/08/2016 Inactive Levemir FlexTouch 100 unit/mL (3 mL) subcutaneous insulin pe n RxNorm: 971872 10 Unit(s) SQ QD with pen needles 03/09/2016 03/20/2016 Inactive Mobic 15 mg tablet RxNorm: 007506 1 Tablet(s) PO QD for foot pain 0 02/17/2016 03/17/2016 Inactive Zoloft 100 mg tablet RxNorm: 215669 1 1/2 Tablet(s) PO QHS 01/31/20 16 04/02/2016 Inactive omeprazole 20 mg capsule,delayed release RxNorm: 691695 TAKE 2 CAPSULES BY MOUTH EVERY DAY 01/12/2016 08/09/2016 Inactive Generic For:*CHERYL LOSEC [address] 01/12/2016 8:58:34 AM Zoloft 100 mg tablet RxNorm: 714990 1/2 Tablet(s) PO QH S for 1 week then 1 tablet po q HS 12/30/2015 01/27/2016 Inactive Ventolin HFA 90 mcg/actuation aerosol inhaler RxNorm: 853780 2 Puff(s) INH QID as needed for shortness of breath 12/30/2015 02/03/2018 Inactive [AttnRPh: Saving apply/adjudicate RxGRP:SG20 RxBIN:[id number] RxPCN: ID#:[id number]] metformin ER 1,000 mg tablet,extended release 24hr RxNorm: 8 24845 1 Tablet(s) PO QD 12/20/2015 03/18/2016 Inactive clindamycin 300 mg capsule RxNorm: 812739 1 Capsule(s) PO TID 12/0512/15/2015 Inactive mupirocin 2 % topical cream RxNorm: 999045 TOP to facial lesion s twice daily 11/15/2015 12/15/2015 Inactive cefdinir 300 mg capsule RxNorm: 853255 1 Capsule(s) PO BID 11/15/19 16 11/24/2015 Inactive Medrol (Gui) 4 mg tablets in a dose pack RxNorm: 918014 Tablet(s) PO as directed 10/11/2015 12/15/2015 Inactive albuterol sulfate 2.5 mg/3 mL (0.083 %) solution for n ebulization RxNorm: 938332 INH USE 1 VIAL IN NEBULIZER EVERY FOUR H OURS NEEDED FOR WHEEZING OR SHORTNESS OF BREATH 10/05/2015 10/04/2015 Inactive Generic For:*PRO VENTIL 0.83 MG/ML SOLUTN 06/13/2013 2:04:46 PM doxycycline hyclate 100 mg capsule RxNorm: 7921210 1 Capsule(s) PO BID 10/05/2015 10/14/2015 Inactive albuterol sulfate 2.5 mg/3 mL (0.083 %) solution for n ebulization RxNorm: 791990 Milliliter(s) INH USE 1 VIAL IN NEBULIZE R EVERY FOUR HOURS NEEDED FOR WHEEZING OR SHORTNESS OF BREATH Dx: J44.9 10/05/2015 12/05/2017 Inacti ve Generic For:*PROVENTIL 0.83 MG/ML SOLUTN 06/13/2013 2:04:46 PM albuterol sulfate 2.5 mg/3 mL (0.083 %) solution for n ebulization RxNorm: 921310 3 Milliliter(s) INH USE 1 VIAL IN NEBULI ZER EVERY FOUR HOURS NEEDED FOR WHEEZING OR SHORTNESS OF BREATH 09/06/2015 10/04/2015 Inactive Generic For:*PROVENTIL 0.83 MG/ML SOLUTN 06/13/2013 2:04:46 PM Tradjenta 5 mg tablet RxNorm: 2062606 2 Tablet(s) PO QD 07/22/2015 Inactive albuterol sulfate 2.5 mg/3 mL (0.083 %) solution for n ebulization RxNorm: 413522 3 Milliliter(s) INH USE 1 VIAL IN NEBULI ZER EVERY FOUR HOURS NEEDED FOR WHEEZING OR SHORTNESS OF BREATH 06/29/2015 09/05/2015 Inactive Generic For:*PROVENTIL 0.83 MG/ML SOLUTN 06/13/2013 2:04:46 PM albuterol sulfate 2.5 mg/3 mL (0.083 %) solution for n ebulization RxNorm: 472339 Milliliter(s) INH USE 1 VIAL IN NEBULIZE R EVERY FOUR HOURS NEEDED FOR WHEEZING OR SHORTNESS OF BREATH 06/29/2015 12/04/2017 Inactive Generic For:*PROVENTIL 0.83 MG/ML SOLUTN 06/13/2013 2:04:46 PM doxycycline hyclate 100 mg tablet RxNorm: 827676 1 Tablet(s) PO BID 06/28/2015 07/07/2015 Inactive losartan 100 mg tablet RxNorm: 926041 1 Tablet(s) PO QD -replac es lisinopril 06/14/2015 09/05/2015 Inactive metformin ER 1,000 mg tablet,extended release 24hr RxNorm: 8 02389 1 Tablet(s) PO QD 06/14/2015 09/11/2015 Inactive losartan 100 mg tablet RxNorm: 522689 1 Tablet(s) PO QD -replac es lisinopril 06/14/2015 12/10/2015 Inactive Zocor 20 mg tablet RxNorm: 170262 Tablet(s) Tablet(s) 1 Tablet(s) PO QD -needs lipids labs 06/14/2015 06/14/2015 Inactive atorvastatin 40 mg tablet RxNorm: 601713 1 Tablet(s) PO QD repl aces simvastatin 06/14/2015 12/10/2015 Inactive loratadine 10 mg tablet RxNorm: 213759 Tablet(s) 1 Tablet(s) PO QD for drainage 06/14/2015 06/07/2016 Inactive Celexa 40 mg tablet RxNorm: 500239 1 Tablet(s) PO QD TA KE ONE (1) TABLET BY MOUTH DAILY 06/14/2015 12/29/2015 Inactive Generic For:HARJINDER XA 40 MG TABLET clindamycin 300 mg capsule RxNorm: 454583 2 Capsule(s) PO BID 06/0306/12/2015 Inactive metformin ER 1,000 mg tablet,extended release 24hr RxNorm: 8 36158 1 Tablet(s) PO QD 06/03/2015 06/02/2015 Inactive metformin ER 1,000 mg tablet,extended release 24hr RxNorm: 8 76785 1 Tablet(s) PO QD 06/03/2015 06/13/2015 Inactive mupirocin 2 % topical ointment RxNorm: 741686 TOP apply to open lesion of knee twice daily 06/03/2015 01/30/2016 Inactive Zocor 20 mg tablet RxNorm: 079659 Tablet(s) 1 Tablet(s ) PO QD -needs lipids labs 05/13/2015 06/13/2015 Inactive Celexa 40 mg tablet RxNorm: 730583 1 Tablet(s) PO QD TA KE ONE (1) TABLET BY MOUTH DAILY 05/13/2015 06/13/2015 Inactive Generic For:HARJINDER XA 40 MG TABLET Zocor 20 mg tablet RxNorm: 786667 Tablet(s) 1 Tablet(s ) PO QD -needs lipids labs 02/23/2015 03/24/2015 Inactive loratadine 10 mg tablet RxNorm: 825707 1 Tablet(s) PO QD for dr saenz 12/24/2014 06/13/2015 Inactive Zocor 20 mg tablet RxNorm: 318053 1 Tablet(s) PO QD -needs lipi ds labs 11/17/2014 02/23/2015 Inactive Celexa 40 mg tablet RxNorm: 068967 1 Tablet(s) PO QD 1 Tablet(s) PO QD 1 Tablet(s) PO QD Generic OKAY 11/11/2014 05/13/2015 Inactive Zocor 20 mg tablet RxNorm: 777267 1 Tablet(s) PO QD -needs lipi ds labs 11/11/2014 11/16/2014 Inactive omeprazole 20 mg capsule,delayed release RxNorm: 503231 2 Capsule(s) PO QD TAKE 2 CAPSULES BY MOUTH DAILY 10/27/2014 04/24/2015 Inactive Shena harp For:*PRILOSEC 20 MG CAPSULE trazodone 50 mg tablet RxNorm: 435625 1 1/2 Tablet(s) PO QHS 201412/29/2015 Inactive losartan 100 mg tablet RxNorm: 832471 1 Tablet(s) PO QD -replac es lisinopril 10/26/2014 04/23/2015 Inactive Levaquin 500 mg tablet RxNorm: 228336 1 Tablet(s) PO QD 10/08/2014 Inactive Levaquin 500 mg tablet RxNorm: 388367 1 Tablet(s) PO QD 10/08/2014 Inactive Diflucan 100 mg tablet RxNorm: 079923 1 Tablet(s) PO QD 10/06/2014 Inactive DuoNeb 0.5 mg-3 mg(2.5 mg base)/3 mL solution for nebulizati on RxNorm: 8457312 3 Milliliter(s) INH QID 09/23/2014 08/09/2016 Inactive Ventolin HFA 90 mcg/actuation aerosol inhaler RxNorm: 605965 2 Puff(s) INH QID as needed for shortness of breath 09/21/2014 12/29/2015 Inactive [AttnRPh: Saving apply/adjudicate RxGRP:SG20 RxBIN:[id number] RxPCN: ID#:[id number]] promethazine-codeine 6.25 mg-10 mg/5 mL syrup RxNorm: 423295 1 Teaspoon(s) PO QHS as needed for cough 09/08/2014 09/20/2014 Inactive prednisone 20 mg tablet RxNorm: 581093 1 Tablet(s) PO BID 09/02/2014 09/08/2014 Inactive promethazine-codeine 6.25 mg-10 mg/5 mL syrup RxNorm: 051254 1 Teaspoon(s) PO Q4H 09/02/2014 09/20/2014 Inactive doxycycline monohydrate 100 mg capsule RxNorm: 743565 1 Capsule (s) PO BID 09/02/2014 09/07/2014 Inactive Tessalon Perles 100 mg capsule RxNorm: 598698 1 Capsule (s) PO TID as needed for cough 08/31/2014 09/20/2014 Inactive Actos 15 mg tablet RxNorm: 429213 1 Tablet(s) PO QAM 1 Tablet(s ) PO QAM 08/26/2014 09/20/2014 Inactive loratadine 10 mg tablet RxNorm: 112153 1 Tablet(s) PO QD for dr saenz 08/26/2014 10/26/2014 Inactive Zithromax 500 mg tablet RxNorm: 136039 1 Tablet(s) PO QD 08/25/2014 1 11/01/2013 Inactive Zithromax 500 mg tablet RxNorm: 630335 1 Tablet(s) PO QD 08/25/2014 1 10/25/2013 Inactive Trazadone 75mg Tablet RxNorm: 1 Tablet(s) PO QHS 08/10/20142018 Inactive Zocor 20 mg tablet RxNorm: 851086 1 Tablet(s) PO QD 08/10/20142014 Inactive Trazadone 75mg Tablet RxNorm: 1 Tablet(s) PO QHS as need ed for sleep 08/10/2014 10/08/2014 Inactive Celexa 40 mg tablet RxNorm: 416011 1 Tablet(s) PO QD 1 Tablet(s) PO QD 1 Tablet(s) PO QD Generic OKAY 06/09/2014 10/06/2014 Inactive Actos 15 mg tablet RxNorm: 687444 1 Tablet(s) PO QAM 05/12/201408/26 Inactive lisinopril 20 mg tablet RxNorm: 177058 1 Tablet(s) PO QD 05/12/2014 0 10/26/2014 Inactive TAKE ONE TABLET BY MOUTH EVERY DAY;Gener ic For:*PRINIVIL 20 MG TABLET [AttnRPh: Saving apply/adjudicate RxGRP:SG20 RxBIN:[id number] RxPCN: ID#:[id number]] hydrocodone 5 mg-acetaminophen 325 mg tablet RxNorm: 580923 1 Tablet(s) PO TID as needed for pain for severe pain 04/30/2014 08/09/2014 Inactive hydrocodone 5 mg-acetaminophen 325 mg tablet RxNorm: 399902 1 Tablet(s) PO TID as needed for pain for severe pain 04/17/2014 04/29/2014 Inactive doxycycline hyclate 100 mg capsule RxNorm: 040474 1 Capsule(s) PO BID 03/05/2014 03/04/2014 Inactive doxycycline hyclate 100 mg capsule RxNorm: 827353 1 Capsule(s) PO BID 03/05/2014 03/14/2014 Inactive albuterol sulfate 2.5 mg/3 mL (0.083 %) solution for n ebulization RxNorm: 184441 Milliliter(s) INH USE 1 VIAL IN NEBULIZE R EVERY FOUR HOURS NEEDED FOR WHEEZING OR SHORTNESS OF BREATH 03/02/2014 06/29/2015 Inactive Generic For:*PROVENTIL 0.83 MG/ML SOLUTN 06/13/2013 2:04:46 PM Celexa 40 mg tablet RxNorm: 937749 1 Tablet(s) PO QD 1 Tablet(s) PO QD replaces lexapro. Generic OKAY 01/13/2014 06/09/2014 Inactive Actos 15 mg tablet RxNorm: 475238 1 Tablet(s) PO QAM 01/07/201405/12 Inactive lisinopril 20 mg tablet RxNorm: 716012 1 Tablet(s) PO QD 12/08/2013 0 05/12/2014 Inactive TAKE ONE TABLET BY MOUTH EVERY DAY;Gener ic For:*PRINIVIL 20 MG TABLET cefdinir 300 mg capsule RxNorm: 673588 2 Capsule(s) PO QD 11/10/2013 08/09/2014 Inactive cefdinir 300 mg capsule RxNorm: 810249 2 Capsule(s) PO QD 10/09/2013 10/15/2013 Inactive Actos 15 mg tablet RxNorm: 873195 1 Tablet(s) PO QAM 10/09/201301/06 Inactive doxycycline hyclate 100 mg capsule RxNorm: 7196199 1 Capsule(s) PO Q12H 09/18/2013 09/27/2013 Inactive omeprazole 20 mg capsule,delayed release RxNorm: 283878 2 Capsule(s) PO QD TAKE 2 CAPSULES BY MOUTH DAILY 09/03/2013 03/01/2014 Inactive Generi c For:*PRILOSEC [address] Celexa 40 mg tablet RxNorm: 330070 1 Tablet(s) PO QD re places lexapro. Generic OKAY 09/03/2013 01/13/2014 Inactive Symbicort 160 mcg-4.5 mcg/actuation HFA aerosol inhaler RxNo rm: 3093138 2 Puff(s) INH BID 08/13/2013 03/23/2014 Inactive metformin 1,000 mg tablet RxNorm: 289867 1 Tablet(s) PO BID 013 08/12/2013 Inactive TAKE ONE TABLET BY MOUTH TWI CE DAILY;Generic For:GLUCOPHAGE 1,000 MG TABLET 08/27/12 Thank you Actos 15 mg tablet RxNorm: 664800 1 Tablet(s) PO QAM 06/23/201310/09 Inactive lisinopril 20 mg tablet RxNorm: 422036 1 Tablet(s) PO QD 06/23/2013 0 12/08/2013 Inactive TAKE ONE TABLET BY MOUTH EVERY DAY;Gener ic For:*PRINIVIL 20 MG TABLET albuterol sulfate 2.5 mg/3 mL (0.083 %) solution for n ebulization RxNorm: 857852 Solution for Nebulization INH USE 1 VIAL IN NEBULIZER EVERY FOUR HOURS NEEDED FOR WHEEZING OR SHORTNESS OF BREATH 06/16/2013 03/01/2014 Inactive Generic For:*PROVENTIL 0.83 MG/ML SOLUTN 06/13/2013 2:04:46 PM prednisone 10 mg tablet RxNorm: 435585 1 Tablet(s) PO BID 04/09/2013 04/13/2013 Inactive AndroGel 1.25 gram/actuation (1%) Transdermal Gel Pump RxNorm: 2 97569 TD 04/09/2013 08/09/2014 Inactive APPLY 4 PUMPS OF GEL AT BEDTIME DIRECTED; (Appended: Controlled substance eRx refill - RxReferenceNumber: [id number]) azithromycin 250 mg tablet RxNorm: 214053 2 Tablet(s) PO QD 013 04/16/2013 Inactive Amaryl 2 mg tablet RxNorm: 010267 1 Tablet(s) PO BID N eeds appt in 1 month (around March 21) 02/18/2013 08/12/2013 Inactive Amaryl 2 mg tablet RxNorm: 743727 1 Tablet(s) PO BID 02/18/201302/17 Inactive metformin 1,000 mg tablet RxNorm: 630670 1 Tablet(s) PO BID 013 07/27/2013 Inactive TAKE ONE TABLET BY MOUTH TWI CE DAILY;Generic For:GLUCOPHAGE 1,000 MG TABLET 08/27/12 Thank you Actos 15 mg tablet RxNorm: 738579 1 Tablet(s) PO QAM 02/04/201306/03 Inactive albuterol sulfate 2.5 mg/3 mL (0.083 %) Neb Solution RxNorm: 331428 1 Unit Dose INH Q4H prn wheezing or shortness of breath 01/30/2013 06/15/2013 Inac tive Medrol (Gui) 4 mg tablets in a dose pack RxNorm: 166327 Tablet(s) PO as directed 01/20/2013 07/15/2013 Inactive cefdinir 300 mg capsule RxNorm: 242444 1 Capsule(s) PO BID anti biotic 01/20/2013 01/29/2013 Inactive lisinopril 20 mg tablet RxNorm: 436973 Tablet(s) PO 01/13/20132012 Inactive TAKE ONE TABLET BY MOUTH EVERY DAY;Gener ic For:*PRINIVIL 20 MG TABLET citalopram 40 mg tablet RxNorm: 761299 Tablet(s) PO 01/13/20132013 Inactive TAKE ONE (1) TABLET BY MOUTH DAILY;Gener ic For:CELEXA 40 MG TABLET omeprazole 20 mg capsule,delayed release RxNorm: 438024 Capsule(s) PO TAKE 2 CAPSULES BY MOUTH DAILY 11/15/2012 09/03/2013 Inactive Generic For:*PRILOSEC [address] amoxicillin 875 mg tablet RxNorm: 929160 1 Tablet(s) PO BID 013 10/28/2012 Inactive Actos 30 mg tablet RxNorm: 136636 1 Tablet(s) PO QD 09/23/20122011 Inactive Actos 15 mg tablet RxNorm: 898492 1 Tablet(s) PO QAM 09/23/201209/22 Inactive Actos 15 mg tablet RxNorm: 778357 1 Tablet(s) PO QAM 09/23/201202/04 Inactive prednisone 20 mg tablet RxNorm: 761080 1 Tablet(s) PO BID 08/28/2012 09/03/2012 Inactive doxycycline hyclate 100 mg tablet RxNorm: 9449660 1 Tablet(s) PO BI D 08/28/2012 09/06/2012 Inactive metformin 1,000 mg tablet RxNorm: 255705 Tablet(s) PO 08/27/201201/22 Inactive TAKE ONE TABLET BY MOUTH TWICE DAILY;Gen lewis For:GLUCOPHAGE 1,000 MG TABLET 08/27/12 Thank you citalopram 40 mg tablet RxNorm: 465523 Tablet(s) PO 07/30/20122012 Inactive TAKE ONE (1) TABLET BY MOUTH DAILY;Gener ic For:CELEXA 40 MG TABLET lisinopril 20 mg tablet RxNorm: 970951 Tablet(s) PO 07/30/20122012 Inactive TAKE ONE TABLET BY MOUTH EVERY DAY;Gener ic For:*PRINIVIL 20 MG TABLET AndroGel 1.25 gram/actuation (1%) Transdermal Gel Pump RxNor m: [id number] Gel in Metered-Dose Pump TD 07/09/2012 04/08/2013 Inactive APPLY 4 PUM PS OF GEL AT BEDTIME DIRECTED;WC (Appended: Controlled substance eRx refill - RxReferenceNumber: [id number]) citalopram 40 mg tablet RxNorm: 236622 Tablet(s) PO 07/01/20122011 Inactive TAKE ONE (1) TABLET BY MOUTH DAILY;Gener ic For:CELEXA 40 MG TABLET metformin 1,000 mg tablet RxNorm: 975836 1 Tablet(s) PO BID 012 08/25/2012 Inactive TAKE 1 TABLET BY MOUTH TWICE DAILY;Generic For:GLUCOPHAGE 1,000 MG TABLET meclizine 25 mg Tab RxNorm: 450694 1 Tablet(s) PO QID prn dizziness 05/09/2012 05/18/2012 Inactive lisinopril 20 mg tablet RxNorm: 477741 Tablet(s) PO QD 04/22/2012 Inactive TAKE ONE (1) TABLET BY MOUTH DAILY;Gener ic For:*PRINIVIL 20 MG TABLET metformin 1,000 mg tablet RxNorm: 991449 Tablet(s) PO 03/19/201212/2011 Inactive TAKE 1 TABLET BY MOUTH TWICE DAILY;Gener ic For:GLUCOPHAGE 1,000 MG TABLET cefdinir 300 mg Cap RxNorm: 526890 1 Capsule(s) PO BID 11/28/2011 Inactive cefdinir 300 mg Cap RxNorm: 003775 1 Capsule(s) PO BID 11/01/2011 Inactive citalopram 40 mg tablet RxNorm: 023570 Tablet(s) PO 10/30/20112011 Inactive TAKE ONE (1) TABLET BY MOUTH DAILY;Gener ic For:CELEXA 40 MG TABLET cefdinir 300 mg Cap RxNorm: 415884 1 Capsule(s) PO BID 10/02/2011 Inactive metformin 1,000 mg Tab RxNorm: 659829 1 Tablet(s) PO BID 09/28/2011 0 01/25/2012 Inactive citalopram 40 mg Tab RxNorm: 470329 1 Tablet(s) PO QD 09/28/201111/2011 Inactive omeprazole 20 mg capsule,delayed release RxNorm: 356067 2 Capsu le(s) PO QD 09/28/2011 03/25/2012 Inactive lisinopril 20 mg Tab RxNorm: 657221 Tablet(s) PO 08/21/2011 04/21/2012 Inactive TAKE ONE (1) TABLET BY MOUTH DAILY;Generic For:*PRINIVIL 20 MG TABLET AndroGel 1.25 gram/actuation (1%) Transdermal Gel Pump RxNor m: [id number] Gel in Metered-dose Pump TD 08/21/2011 07/09/2012 Inactive APPLY 4 PUM PS OF GEL AT BEDTIME DIRECTED (Appended: Controlled substance eRx refill - RxReferenceNumber: [id number]) Lantus Solostar 100 unit/mL (3 mL) Sub-Q Insulin Pen RxNorm: 725324 30 Unit(s) SQ QD 06/20/2011 05/08/2012 Inactive Lantus Solostar 100 unit/mL (3 mL) Sub-Q Insulin Pen RxNorm: 941862 30 Unit(s) SQ QD 06/19/2011 06/19/2011 Inactive metformin 1,000 mg Tab RxNorm: 449647 1 Tablet(s) PO BID 05/12/2011 1 11/09/2010 Inactive citalopram 40 mg Tab RxNorm: 818728 1 Tablet(s) PO QD 03/06/201105/2011 Inactive metformin 1,000 mg Tab RxNorm: 313402 1 Tablet(s) PO BID 12/27/2010 0 04/25/2011 Inactive lisinopril 20 mg Tab RxNorm: 211577 Tablet(s) PO TAKE 1 TABLET BY MOUTH EVERY DAY;Generic For:*PRINIVIL 20 MG TABLET 12/26/2010 08/20/2011 Inactive Ceftin 500 mg Tab RxNorm: 649903 1 Tablet(s) PO BID 12/19/20102010 Inactive omeprazole 20 mg Cap, Delayed Release RxNorm: 110611 2 Capsule( s) PO QD 09/13/2010 03/11/2011 Inactive Byetta 10 mcg/0.04 mL per dose Sub-Q Pen Injector RxNorm: 84 7913 1 Unit Dose SQ BID 09/07/2010 10/06/2010 Inactive Celexa 40 mg tablet RxNorm: 629253 1 Tablet(s) PO QD re places lexapro. Generic OKAY 08/09/2010 02/04/2011 Inactive Actos 30 mg Tab RxNorm: 539054 1 Tablet(s) PO QD 08/09/2010 04/02/2011 Inactive lisinopril 20 mg Tab RxNorm: 929254 1 Tablet(s) PO QD 08/09/201011/22 Inactive metformin 1,000 mg Tab RxNorm: 812758 1 Tablet(s) PO BID 08/09/2010 0 12/06/2010 Inactive Metformin 1,000 mg Tab RxNorm: 363049 1 Tablet(s) PO BID 04/26/2010 0 04/25/2010 Inactive metformin 1,000 mg Tab RxNorm: 928536 1 Tablet(s) PO BID 04/26/2010 1 Inactive Lomotil 2.5 mg-0.025 mg Tab RxNorm: 9775540 1 Tablet(s) PO TID 1-2 TABS THREE TIMES DAILY 04/05/2010 04/07/2010 Inactive Mupirocin 2 % Topical Cream RxNorm: 304202 TOP BID 04/05/201003/25 Inactive lisinopril 20 mg Tab RxNorm: 712860 1 Tablet(s) PO QD 03/29/201010/2009 Inactive Actos 30 mg Tab RxNorm: 885464 1 Tablet(s) PO QD 03/29/2010 07/26/2010 Inactive Lisinopril 20 mg Tab RxNorm: 983211 1 Tablet(s) PO QD 02/27/201001/2010 Inactive Actos 30 mg Tab RxNorm: 439057 1 Tablet(s) PO QD 02/14/2010 03/28/2010 Inactive Celexa 40 mg Tab RxNorm: 332329 1 Tablet(s) PO QD replaces lexapro 01/13/2010 07/11/2010 Inactive Cyclobenzaprine 10 mg Tab RxNorm: 041633 1 Tablet(s) PO TID prn spasm 12/23/2009 01/21/2010 Inactive Cyclobenzaprine 10 mg Tab RxNorm: 398294 1 Tablet(s) PO TID 010 12/22/2009 Inactive Hydrocodone-Acetaminophen 7.5 mg-750 mg Tab RxNorm: 355439 1 Ta blet(s) PO Q4-6H 12/23/2009 12/22/2009 Inactive Levemir FlexTouch U-100 Insulin 100 unit/mL (3 mL) sub cutaneous pen RxNorm: 457753 22 Unit(s) SQ QD No Start Date Active aspirin 81 mg tablet RxNorm: 653381 1 Tablet(s) PO QD No Start Date Active isosorbide mononitrate ER 60 mg tablet,extended release 24 h r RxNorm: 490276 1 Tablet(s) PO QD No Start Date Active amlodipine 5 mg tablet RxNorm: 163929 1 Tablet(s) PO QD No Start Date Active Vitamin D3 1,000 unit tablet RxNorm: 990888 3 Tablet(s) PO QD No St art Date 10/26/2014 Inactive Lexapro 20 mg Tab RxNorm: 219642 1 Tablet(s) PO QD No Start Date 12/24 Inactive loperamide 2 mg tablet RxNorm: 115035 Tablet(s) PO PRN No Start Date 06/07/2016 Inactive Janumet 50 mg-1,000 mg Tab RxNorm: 983943 1 Tablet(s) PO BID No Sta rt Date 01/12/2010 Inactive Levemir U-100 Insulin 100 unit/mL subcutaneous solution RxNo rm: 339273 10 Unit(s) SQ QHS No Start Date 12/08/2018 Inactive Medrol (Gui) 4 mg tablets in a dose pack RxNorm: 079585 Tablet(s) PO Use as directed No Start Date 12/22/2018 Inactive aspirin 325 mg tablet RxNorm: 884683 1 Tablet(s) PO QD No Start Date 08/09/2016 Inactive Efudex 5 % Topical Cream RxNorm: 015289 Application TOP QD prn fto skin lesion No Start Date 08/12/2013 Inactive nitroglycerin 0.4 mg sublingual tablet RxNorm: 174830 Tablet(s) SL as needed No Start Date 12/18/2018 Inactive levofloxacin 500 mg tablet RxNorm: 316466 1 Tablet(s) PO QD No Star t Date 08/06/2018 Inactive ferrous sulfate 325 mg (65 mg iron) tablet RxNorm: 469952 1 Tab let(s) PO QHS No Start Date 04/16/2017 Inactive fluorouracil 5 % topical cream RxNorm: 636458 1 TOP No Start James e 08/06/2018 Inactive Vitamin D3 1,000 unit capsule RxNorm: 782333 1 Capsule(s) PO QD No Start Date 02/03/2018 Inactive Hydrocodone-Acetaminophen 7.5 mg-750 mg Tab RxNorm: 984388 1 Ta blet(s) PO PRN No Start Date 08/09/2014 Inactive pantoprazole 40 mg tablet,delayed release RxNorm: 934846 1 Tabl et(s) PO QD No Start Date 01/22/2018 Inactive omeprazole 20 mg Cap, Delayed Release RxNorm: 320415 2 Capsule( s) PO QD No Start Date 09/12/2010 Inactive DuoNeb 0.5 mg-3 mg(2.5 mg base)/3 mL solution for nebulizati on RxNorm: 7336102 INH Q4H as needed No Start Date 10/22/2018 Inactive Lyrica 75 mg capsule RxNorm: 502933 2 Capsule(s) PO QHS No Start Da te 03/09/2019 Inactive isosorbide mononitrate ER 30 mg tablet,extended release 24 h r RxNorm: 676483 1 Tablet(s) PO QD No Start Date 12/08/2018 Inactive Tradjenta 5 mg tablet RxNorm: 0223606 1 Tablet(s) PO QD No Start Da te 08/09/2016 Inactive Tudorza Pressair 400 mcg/actuation breath activated RxNorm: 9137555 1 Puff(s) INH BID No Start Date 06/17/2017 Inactive Lantus Solostar 100 unit/mL (3 mL) Sub-Q Insulin Pen RxNorm: 270325 30 Unit(s) SQ QD No Start Date 06/18/2011 Inactive Requip 4 mg tablet RxNorm: 996445 1 Tablet(s) PO BID No Start Date Inactive Symbicort 160 mcg-4.5 mcg/actuation HFA aerosol inhaler RxNo rm: 5662222 2 Puff(s) INH BID No Start Date 07/11/2018 Inactive atorvastatin 40 mg tablet RxNorm: 253834 1 Tablet(s) PO QD No Start Date 12/18/2018 Inactive tramadol 50 mg tablet RxNorm: 886643 1 Tablet(s) PO TID as needed for pain (take alone with two extra strength tylenol) No Start Date 01/16/2019 Inactive Symbicort 160 mcg-4.5 mcg/actuation HFA aerosol inhaler RxNo rm: 7283093 2 Puff(s) INH BID No Start Date 08/12/2013 Inactive Vitamin D3 5,000 unit tablet RxNorm: 875222 1 Tablet(s) PO QD No St art Date 05/08/2019 Inactive albuterol sulfate 2.5 mg/3 mL (0.083 %) Neb Solution RxNorm: 881240 1 Unit Dose INH Q4H prn wheezing or shortness of breath No Start Date 01/29/2013 Inac tive Ranexa 500 mg tablet,extended release RxNorm: 139958 1 Tablet(s ) PO BID No Start Date 02/03/2018 Inactive Advair Diskus 500 mcg-50 mcg/dose powder for inhalation RxNo rm: 9050904 1 Puff(s) INH BID No Start Date 08/09/2016 Inactive clopidogrel 75 mg tablet RxNorm: 729324 1 Tablet(s) PO QD No Start Date 05/01/2018 Inactive metformin 1,000 mg Tab RxNorm: 387987 1 Tablet(s) PO BID No Start D ate 08/12/2013 Inactive Silenor 3 mg tablet RxNorm: 822992 1 Tablet(s) PO QHS No Start Date 0 04/04/2017 Inactive Medrol (Gui) 4 mg tablets in a dose pack RxNorm: 963584 Tablet(s) PO as directed No Start Date 01/19/2013 Inactive Requip 4 mg tablet RxNorm: 856323 1 Tablet(s) PO BID No Start Date Inactive clopidogrel 75 mg tablet RxNorm: 719129 1 Tablet(s) PO QD No Start Date 02/03/2018 Inactive Tradjenta 5 mg tablet RxNorm: 1172389 1 Tablet(s) PO QD No Start Da te 02/03/2018 Inactive ProAir HFA 90 mcg/Actuation Aerosol Inhaler RxNorm: 397738 2 Pu ff(s) INH PRN No Start Date 07/09/2012 Inactive Tessalon Perles 100 mg capsule RxNorm: 336626 1 Capsule (s) PO TID as needed for cough No Start Date 08/30/2014 Inactive ferrous sulfate 325 mg (65 mg iron) tablet RxNorm: 818886 1 Tab let(s) PO QD No Start Date 05/08/2019 Inactive pioglitazone 15 mg tablet RxNorm: 678567 1 Tablet(s) PO QD No Start Date 09/20/2014 Inactive Lexapro Oral RxNorm: Oral No Start Date 12/13/2009 Inactive Breo Ellipta 100 mcg-25 mcg/dose powder for inhalation RxNor m: 9576423 1 Puff(s) INH BID No Start Date 05/31/2015 Inactive Tylenol Extra Strength 500 mg tablet RxNorm: 068148 2 T ablet(s) PO QHS along with ropironole No Start Date 12/18/2018 Inactive tramadol 50 mg tablet RxNorm: 640329 1 Tablet(s) PO QID as need ed for pain No Start Date 12/24/2018 Inactive cyclobenzaprine 10 mg Tab RxNorm: 681690 Oral No Start Date 12/22 Inactive Levemir FlexTouch 100 unit/mL (3 mL) subcutaneous insulin pe n RxNorm: 314385 10 Unit(s) SQ QD No Start Date 03/08/2016 Inactive amlodipine 5 mg tablet RxNorm: 505458 1 Tablet(s) PO QD No Start Da te 08/09/2016 Inactive Novolog 100 unit/mL subcutaneous solution RxNorm: 079804 10 Uni t(s) SQ AC No Start Date 08/12/2017 Inactive Levemir FlexTouch 100 unit/mL (3 mL) subcutaneous insulin pe n RxNorm: 813226 25 Unit(s) SQ QPM No Start Date 08/06/2018 Inactive Farxiga 5 mg tablet RxNorm: 5576253 1 Tablet(s) PO QD No Start Date 0 10/05/2014 Inactive DuoNeb 0.5 mg-3 mg(2.5 mg base)/3 mL solution for nebulizati on RxNorm: 0366081 inhalation No Start Date 09/23/2014 Inactive Doxycycline 100 mg Cap RxNorm: 528006 1 Capsule(s) PO BID No Start Date 12/18/2010 Inactive Vitamin B12 1000mcg Tablet RxNorm: 1 Tablet(s) PO QD No Start Date 02/03/2018 Inactive Hydrocodone-Acetaminophen 7.5 mg-750 mg Tab RxNorm: 948474 1 Ta blet(s) PO Q6-8H No Start Date 12/22/2009 Inactive Xigduo XR 5 mg-1,000 mg tablet,extended release RxNorm: 1593 833 1 Tablet(s) PO QD No Start Date 05/31/2015 Inactive cyanocobalamin (vit B-12) 1,000 mcg/mL injection solution Rx Norm: 689980 1 injection weekly for 4 weeks 1 Milliliter(s) Inj No Start Date 05/08/2019 Inactive AndroGel 1.25 g/Actuation (1%) Transdermal Gel Pump RxNorm: 5056030 TD Apply 4pumps daily No Start Date 08/21/2011 Inactive Actoplus MET 15 mg-850 mg Tab RxNorm: 939939 1 Tablet(s) PO BID No Start Date 12/18/2010 Inactive Amaryl 2 mg tablet RxNorm: 568465 1 Tablet(s) PO BID No Start Date Inactive Levemir FlexTouch 100 unit/mL (3 mL) subcutaneous insulin pe n RxNorm: 116592 20 Unit(s) SQ QD No Start Date 06/12/2016 Inactive Symbicort 160 mcg-4.5 mcg/actuation HFA aerosol inhaler RxNo rm: 5453355 2 Puff(s) INH BID No Start Date 02/03/2018 Inactive Symbicort 160 mcg-4.5 mcg/Actuation Inhalation HFA Aer osol Inhaler RxNorm: 2574999 2 INH BID No Start Date 12/18/2010 Inactive Farxiga 5 mg tablet RxNorm: 2859037 1 Tablet(s) PO QD No Start Date 0 03/01/2015 Inactive magnesium oxide 400 mg (241.3 mg magnesium) tablet RxNorm: 1 54489 1 Tablet(s) PO QHS No Start Date 05/08/2019 Inactive Tradjenta 5 mg tablet RxNorm: 5669763 2 Tablet(s) PO QD No Start Da te 07/21/2015 Inactive Levemir FlexTouch U-100 Insulin 100 unit/mL (3 mL) sub cutaneous pen RxNorm: 253483 40 Unit(s) SQ QD No Start Date 08/06/2018 Inactive Sinemet CR 50 mg-200 mg tablet,extended release RxNorm: 8343 41 1 Tablet(s) PO QHS No Start Date 09/24/2017 Inactive metoprolol tartrate 25 mg tablet RxNorm: 438853 1/2 Tablet(s) P O BID No Start Date 02/03/2018 Inactive Requip 4 mg tablet RxNorm: 934001 1 Tablet(s) PO QHS No Start Date Inactive Ventolin HFA 90 mcg/actuation aerosol inhaler RxNorm: 918985 2 Puff(s) INH Q4H as needed No Start Date 04/22/2018 Inactive B12 5,000 mcg-100 mcg sublingual lozenge RxNorm: 600637 IM as d irected No Start Date 05/08/2019 Inactive ropinirole 1 mg tablet RxNorm: 745453 1 Tablet(s) PO QHS No Start D ate 08/06/2018 Inactive Percocet 5 mg-325 mg tablet RxNorm: 3198120 1 Tablet(s) PO Q4H as needed for pain (Dr Rizzo) No Start Date 10/22/2018 Inactive hydrocodone 5 mg-acetaminophen 325 mg tablet RxNorm: 108514 1 Tablet(s) PO TID as needed for pain for severe pain No Start Date 04/16/2014 Inactive scopolamine 1.5 mg 72 hr Transderm Patch RxNorm: 950526 Application TD Q72H for dizziness No Start Date 08/12/2013 Inactive ipratropium-albuterol 0.5 mg-3 mg(2.5 mg base)/3 mL ne bulization soln RxNorm: 4083723 1 Unit Dose INH Q4H No Start Date 01/16/2019 Inactive Medication Administered No Medication Administered data Immunizations Vaccine Codes Date Status Influenza CVX: 135 08/07/2019 Complete Pneumococcal CVX: 33 07/24/2017 Complete Influenza CVX: 135 06/13/2016 Complete Pneumococcal CVX: 133 06/13/2016 Complete Influenza CVX: 141 07/10/2012 Pneumovax Unknown 07/10/2012 Results Observation Observation Code Item Item Code Result Date S vice Location COMPLETE BLOOD COUNT [id number] WBC 5.5 10e9/L 06/17/20 19 Unknown COMPLETE BLOOD COUNT [id number] RBC 3.92 10e12/L 2018 Unknown COMPLETE BLOOD COUNT [id number] HEMOGLOBIN 10.9 g/dL 06/17/20 19 Unknown COMPLETE BLOOD COUNT [id number] HEMATOCRIT 34.8 % 06/17/20 19 Unknown COMPLETE BLOOD COUNT 9256978 MCV 88.8 fL 9 Unknown COMPLETE BLOOD COUNT 1712913 MCH 27.8 pg 9 Unknown COMPLETE BLOOD COUNT 5660616 MCHC 31.3 g/dL 9 Unknown COMPLETE BLOOD COUNT [id number] PLATELET COUNT 239 10e9/L Unknown COMPLETE BLOOD COUNT 8524097 Mean Plt Volume 10.0 fL Unknown COMPLETE BLOOD COUNT 9200219 Neut Auto 68.0 % 9 Unknown COMPLETE BLOOD COUNT 5164160 Lymph Auto 14.8 % 06/17/20 19 Unknown COMPLETE BLOOD COUNT 4655651 Blair Auto 13.1 % 9 Unknown COMPLETE BLOOD COUNT 8166070 RDW 14.7 % 9 Unknown COMPLETE BLOOD COUNT 0105691 Eos Auto 3.6 % 9 Unknown COMPLETE BLOOD COUNT 8529650 Baso Auto 0.5 % 9 Unknown COMPLETE BLOOD COUNT 2248399 Neutrophil Abs 3.74 10e9/L Unknown COMPLETE BLOOD COUNT [id number] Lymphocyte Abs 0.81 10e9/L Unknown COMPLETE BLOOD COUNT 3584672 Monocyte Abs 0.72 10e9/L 05/26 Unknown COMPLETE BLOOD COUNT 8954349 Eosinophil Abs 0.20 10e9/L Unknown COMPLETE BLOOD COUNT 4325126 RDW-SD 46.4 fL 9 Unknown COMPLETE BLOOD COUNT 0003299 Basophil Abs 0.03 10e9/L 05/26 Unknown IRON 46661 Iron 36 ug/dL 06/17/2019 Unknown VITAMIN B 12 03387 VITAMIN B12 540 pg/mL 06/17/2019 Unkn own GFR CALC 2177837 GFR Non Afr Amr 59 mL/min 06/17/2019 Unk nown GFR CALC 2668856 GFR Afr Amr >60 mL/min 06/17/2019 Unknow n ERYTHROCYTE SEDIMENTATION RATE 71020 Sed Rate 34 mm/hr 06/17/2019 Unknown THYROID STIMULATING HORMONE 27059 TSH 2.217 uIU/mL 06/17/2019 Unknown COMPREHENSIVE METABOLIC 01916 AST 12 U/L 2018 Unknown COMPREHENSIVE METABOLIC 51362 ALT 11 U/L 2018 Unknown COMPREHENSIVE METABOLIC 66015 BUN 17 mg/dL 2018 Unknown COMPREHENSIVE METABOLIC 45739 ALBUMIN 3.9 g/dL 2018 Unknown COMPREHENSIVE METABOLIC 33534 CHLORIDE 103 mmol/L 06/17 Unknown COMPREHENSIVE METABOLIC 62207 Bili Total 0.4 mg/dL 06/17 Unknown COMPREHENSIVE METABOLIC 35612 ALK PHOS 51 U/L 2018 Unknown COMPREHENSIVE METABOLIC 91843 SODIUM 140 mmol/L 06/17 Unknown COMPREHENSIVE METABOLIC 32453 CREATININE 1.20 mg/dL 05/26 Unknown COMPREHENSIVE METABOLIC 10372 CALCIUM 8.9 mg/dL 2018 Unknown COMPREHENSIVE METABOLIC 65852 POTASSIUM 4.5 mmol/L 06/17 Unknown COMPREHENSIVE METABOLIC 55946 Total Protein 6.1 g/dL Unknown COMPREHENSIVE METABOLIC 58980 Glucose 108 mg/dL 2018 Unknown COMPREHENSIVE METABOLIC 52135 Bicarbonate 27 mmol/L 05/26 Unknown COMPREHENSIVE METABOLIC 63997 AGAP 10 mmol/L 2018 Unknown FERRITIN 18700 FERRITIN 35.5 ng/mL 05/08/2019 Unknown VITAMIN D TOTAL (25 HYDROXY) 78834 Vitamin D 25 OH 26.0 ng/mL 05/08/2019 Unknown GLYCOSYLATED HEMOGLOBIN TEST 16410 Hgb A1c 79256-7 8.2 % 0 05/08/2019 Unknown MEAN GLUC 8266627 Calc Mean Gluc 189 mg/dL 05/08/2019 Unkn own GFR CALC 7949570 GFR Non Afr Amr >60 mL/min 05/08/2019 Un known GFR CALC 3189073 GFR Afr Amr >60 mL/min 05/08/2019 Unknow n VITAMIN B 12 66080 VITAMIN B12 197 pg/mL 05/08/2019 Unkn own IRON 46027 Iron 34 ug/dL 05/08/2019 Unknown COMPLETE BLOOD COUNT 6705684 WBC 6.9 10e9/L 05/08/20 19 Unknown COMPLETE BLOOD COUNT 3521634 RBC 3.95 10e12/L 2018 Unknown COMPLETE BLOOD COUNT 6289887 HEMOGLOBIN 11.1 g/dL 05/08/20 19 Unknown COMPLETE BLOOD COUNT 3299885 HEMATOCRIT 34.9 % 05/08/20 19 Unknown COMPLETE BLOOD COUNT 2783098 MCV 88.4 fL 9 Unknown COMPLETE BLOOD COUNT 8918928 MCH 28.1 pg 9 Unknown COMPLETE BLOOD COUNT 7750441 MCHC 31.8 g/dL 9 Unknown COMPLETE BLOOD COUNT 6122338 PLATELET COUNT 217 10e9/L Unknown COMPLETE BLOOD COUNT 2193157 Mean Plt Volume 9.6 fL Unknown COMPLETE BLOOD COUNT 7736177 Neut Auto 77.6 % 9 Unknown COMPLETE BLOOD COUNT 5785981 Lymph Auto 10.7 % 05/08/20 19 Unknown COMPLETE BLOOD COUNT 3045580 Blair Auto 10.4 % 9 Unknown COMPLETE BLOOD COUNT 9436272 RDW 14.7 % 9 Unknown COMPLETE BLOOD COUNT 9894903 Eos Auto 1.2 % 9 Unknown COMPLETE BLOOD COUNT 6195512 Baso Auto 0.1 % 9 Unknown COMPLETE BLOOD COUNT 0774781 Neutrophil Abs 5.35 10e9/L Unknown COMPLETE BLOOD COUNT 5782607 Lymphocyte Abs 0.74 10e9/L Unknown COMPLETE BLOOD COUNT 0665961 Monocyte Abs 0.72 10e9/L 04/24 Unknown COMPLETE BLOOD COUNT 3710861 Eosinophil Abs 0.08 10e9/L Unknown COMPLETE BLOOD COUNT 9896393 RDW-SD 46.6 fL 9 Unknown COMPLETE BLOOD COUNT 1268965 Basophil Abs 0.01 10e9/L 04/24 Unknown COMPREHENSIVE METABOLIC 93208 AST 13 U/L 2018 Unknown COMPREHENSIVE METABOLIC 95152 ALT 9 U/L 2018 Unknown COMPREHENSIVE METABOLIC 14640 BUN 18 mg/dL 2018 Unknown COMPREHENSIVE METABOLIC 70297 ALBUMIN 4.3 g/dL 2018 Unknown COMPREHENSIVE METABOLIC 05587 CHLORIDE 99 mmol/L 2018 Unknown COMPREHENSIVE METABOLIC 09618 Bili Total 0.4 mg/dL 05/08 Unknown COMPREHENSIVE METABOLIC 77985 ALK PHOS 48 U/L 2018 Unknown COMPREHENSIVE METABOLIC 92366 SODIUM 137 mmol/L 05/08 Unknown COMPREHENSIVE METABOLIC 85670 CREATININE 0.79 mg/dL 04/24 Unknown COMPREHENSIVE METABOLIC 01268 CALCIUM 9.5 mg/dL 2018 Unknown COMPREHENSIVE METABOLIC 51399 POTASSIUM 4.0 mmol/L 05/08 Unknown COMPREHENSIVE METABOLIC 41602 Total Protein 6.3 g/dL Unknown COMPREHENSIVE METABOLIC 85828 Glucose 232 mg/dL 2018 Unknown COMPREHENSIVE METABOLIC 99354 Bicarbonate 27 mmol/L 04/24 Unknown COMPREHENSIVE METABOLIC 53127 AGAP 11 mmol/L 2018 Unknown GLYCOSYLATED HEMOGLOBIN TEST 68126 Hgb A1c 87330-9 8.9 % 0 12/10/2018 Unknown MEAN GLUC 9923516 Calc Mean Gluc 209 mg/dL 12/10/2018 Unkn own LIPID GROUP 44545 Cholesterol 145 mg/dL 12/09/2018 Unkno wn LIPID GROUP 37618 Triglyceride 235 mg/dL 12/09/2018 Unkn own LIPID GROUP 36094 HDL CHOLESTEROL 40 mg/dL 12/09/2018 U nknown LIPID GROUP 73718 Chol/HDL Ratio 3.62 ratio 12/09/2018 U nknown LIPID GROUP 71477 NON-HDL Chol 105 mg/dL 12/09/2018 Unkn own LIPID GROUP 44244 LDL Cholesterol 58 mg/dL 12/09/2018 U nknown THYROID STIMULATING HORMONE 30987 TSH 1.071 uIU/mL 12/09/2018 Unknown GFR CALC 7089959 GFR Non Afr Amr >60 mL/min 12/09/2018 Un known GFR CALC 6745335 GFR Afr Amr >60 mL/min 12/09/2018 Unknow n COMPLETE BLOOD COUNT 5853508 WBC 7.6 10e9/L 12/10/19 19 Unknown COMPLETE BLOOD COUNT 2183765 RBC 3.97 10e12/L 2018 Unknown COMPLETE BLOOD COUNT 6095647 HEMOGLOBIN 11.4 g/dL 12/10/19 19 Unknown COMPLETE BLOOD COUNT 5872147 HEMATOCRIT 35.8 % 12/10/19 19 Unknown COMPLETE BLOOD COUNT 5741077 MCV 90.2 fL 9 Unknown COMPLETE BLOOD COUNT 5761600 MCH 28.7 pg 9 Unknown COMPLETE BLOOD COUNT 1640338 MCHC 31.8 g/dL 9 Unknown COMPLETE BLOOD COUNT 8229489 PLATELET COUNT 200 10e9/L Unknown COMPLETE BLOOD COUNT 9031287 Mean Plt Volume 10.1 fL Unknown COMPLETE BLOOD COUNT 3966365 Neut Auto 79.0 % 9 Unknown COMPLETE BLOOD COUNT 8878083 Lymph Auto 8.3 % 12/10/19 19 Unknown COMPLETE BLOOD COUNT 4597427 Blair Auto 10.8 % 9 Unknown COMPLETE BLOOD COUNT 6575735 RDW 14.6 % 9 Unknown COMPLETE BLOOD COUNT 5917594 Eos Auto 1.5 % 9 Unknown COMPLETE BLOOD COUNT 6829769 Baso Auto 0.4 % 9 Unknown COMPLETE BLOOD COUNT 4064050 Neutrophil Abs 6.00 10e9/L Unknown COMPLETE BLOOD COUNT 3483947 Lymphocyte Abs 0.63 10e9/L Unknown COMPLETE BLOOD COUNT 1150685 Monocyte Abs 0.82 10e9/L 11/22 Unknown COMPLETE BLOOD COUNT 2926403 Eosinophil Abs 0.11 10e9/L Unknown COMPLETE BLOOD COUNT 2115148 RDW-SD 46.9 fL 9 Unknown COMPLETE BLOOD COUNT 4425593 Basophil Abs 0.03 10e9/L 11/22 Unknown COMPREHENSIVE METABOLIC 87914 AST 11 U/L 2018 Unknown COMPREHENSIVE METABOLIC 39079 ALT 11 U/L 2018 Unknown COMPREHENSIVE METABOLIC 69210 BUN 21 mg/dL 2018 Unknown COMPREHENSIVE METABOLIC 80360 ALBUMIN 4.7 g/dL 2018 Unknown COMPREHENSIVE METABOLIC 33490 CHLORIDE 99 mmol/L 2018 Unknown COMPREHENSIVE METABOLIC 00200 Bili Total 0.4 mg/dL 12/09 Unknown COMPREHENSIVE METABOLIC 18146 ALK PHOS 73 U/L 2018 Unknown COMPREHENSIVE METABOLIC 14487 SODIUM 137 mmol/L 12/09 Unknown COMPREHENSIVE METABOLIC 11746 CREATININE 1.12 mg/dL 11/22 Unknown COMPREHENSIVE METABOLIC 14993 CALCIUM 9.4 mg/dL 2018 Unknown COMPREHENSIVE METABOLIC 51772 POTASSIUM 4.2 mmol/L 12/09 Unknown COMPREHENSIVE METABOLIC 40284 Total Protein 6.8 g/dL Unknown COMPREHENSIVE METABOLIC 59271 Glucose 194 mg/dL 2018 Unknown COMPREHENSIVE METABOLIC 89966 Bicarbonate 30 mmol/L 11/22 Unknown COMPREHENSIVE METABOLIC 41656 AGAP 8 mmol/L 2018 Unknown FREE T4 81221 T4 Free 0.86 ng/dL 12/09/2018 Unknown COMPLETE BLOOD COUNT 1915249 WBC 6.8 10e9/L 04/17/20 17 Unknown COMPLETE BLOOD COUNT 3101356 RBC 3.86 10e12/L 2016 Unknown COMPLETE BLOOD COUNT 8792936 HEMOGLOBIN 9.8 g/dL 04/17/20 17 Unknown COMPLETE BLOOD COUNT 0949037 HEMATOCRIT 31.1 % 04/17/20 17 Unknown COMPLETE BLOOD COUNT 0820921 MCV 80.6 fL 7 Unknown COMPLETE BLOOD COUNT 3742784 MCH 25.4 pg 7 Unknown COMPLETE BLOOD COUNT 6205497 MCHC 31.5 g/dL 7 Unknown COMPLETE BLOOD COUNT 4912713 PLATELET COUNT 247 10e9/L Unknown COMPLETE BLOOD COUNT 9348958 Mean Plt Volume 9.7 fL Unknown COMPLETE BLOOD COUNT 2869036 Neut Auto 74.1 % 7 Unknown COMPLETE BLOOD COUNT 1648831 Lymph Auto 12.0 % 04/17/20 17 Unknown COMPLETE BLOOD COUNT 2504741 Blair Auto 10.8 % 7 Unknown COMPLETE BLOOD COUNT 9939728 RDW 15.9 % 7 Unknown COMPLETE BLOOD COUNT 6815860 Eos Auto 2.5 % 7 Unknown COMPLETE BLOOD COUNT 6955126 Baso Auto 0.6 % 7 Unknown COMPLETE BLOOD COUNT 6572216 Neutrophil Abs 5.04 10e9/L Unknown COMPLETE BLOOD COUNT 1682002 Lymphocyte Abs 0.82 10e9/L Unknown COMPLETE BLOOD COUNT 4937832 Monocyte Abs 0.73 10e9/L 03/25 Unknown COMPLETE BLOOD COUNT 1243734 Eosinophil Abs 0.17 10e9/L Unknown COMPLETE BLOOD COUNT 4290404 RDW-SD 44.4 fL 7 Unknown COMPLETE BLOOD COUNT 4583537 Basophil Abs 0.04 10e9/L 03/25 Unknown MEAN GLUC 0612739 Calc Mean Gluc 223 mg/dL 04/17/2017 Unkn own GFR CALC 1674196 GFR Non Afr Amr >60 mL/min 04/17/2017 Un known GFR CALC 7558549 GFR Afr Amr >60 mL/min 04/17/2017 Unknow n GLYCOSYLATED HEMOGLOBIN TEST 65439 Hgb A1c 73835-3 9.4 % 0 04/17/2017 Unknown IRON 88210 Iron 37 ug/dL 04/17/2017 Unknown VITAMIN B 12 84754 VITAMIN B12 280 pg/mL 04/17/2017 Unkn own THYROID STIMULATING HORMONE 05015 TSH 2.481 uIU/mL 04/17/2017 Unknown COMPREHENSIVE METABOLIC 83628 AST 13 U/L 2016 Unknown COMPREHENSIVE METABOLIC 36951 ALT 12 U/L 2016 Unknown COMPREHENSIVE METABOLIC 39365 BUN 18 mg/dL 2016 Unknown COMPREHENSIVE METABOLIC 42293 ALBUMIN 4.7 g/dL 2016 Unknown COMPREHENSIVE METABOLIC 74073 CHLORIDE 103 mmol/L 04/17 Unknown COMPREHENSIVE METABOLIC 30827 Bili Total 0.4 mg/dL 04/17 Unknown COMPREHENSIVE METABOLIC 95338 ALK PHOS 49 U/L 2016 Unknown COMPREHENSIVE METABOLIC 72506 SODIUM 140 mmol/L 04/17 Unknown COMPREHENSIVE METABOLIC 45036 CREATININE 1.14 mg/dL 03/25 Unknown COMPREHENSIVE METABOLIC 91778 CALCIUM 9.4 mg/dL 2016 Unknown COMPREHENSIVE METABOLIC 67483 POTASSIUM 4.4 mmol/L 04/17 Unknown COMPREHENSIVE METABOLIC 57917 Total Protein 6.7 g/dL Unknown COMPREHENSIVE METABOLIC 18468 Glucose 266 mg/dL 2016 Unknown COMPREHENSIVE METABOLIC 36115 Bicarbonate 25 mmol/L 03/25 Unknown COMPREHENSIVE METABOLIC 61462 AGAP 12 mmol/L 2016 Unknown FERRITIN 57692 FERRITIN 10.0 ng/mL 04/17/2017 Unknown COMPLETE BLOOD COUNT 0387138 WBC 6.8 10e9/L 12/22/19 17 Unknown COMPLETE BLOOD COUNT 7613823 RBC 3.70 10e12/L 2016 Unknown COMPLETE BLOOD COUNT 2305427 HEMOGLOBIN 8.0 g/dL 12/22/19 17 Unknown COMPLETE BLOOD COUNT 0496944 HEMATOCRIT 26.7 % 12/22/19 17 Unknown COMPLETE BLOOD COUNT 8982316 MCV 72.2 fL 7 Unknown COMPLETE BLOOD COUNT 9091713 MCH 21.6 pg 7 Unknown COMPLETE BLOOD COUNT 8689565 MCHC 30.0 g/dL 7 Unknown COMPLETE BLOOD COUNT 9836362 PLATELET COUNT 290 10e9/L Unknown COMPLETE BLOOD COUNT 1991347 Mean Plt Volume 9.3 fL Unknown COMPLETE BLOOD COUNT 5459695 Neut Auto 80.2 % 7 Unknown COMPLETE BLOOD COUNT 7402428 Lymph Auto 9.8 % 12/22/19 17 Unknown COMPLETE BLOOD COUNT 2049112 Blair Auto 8.1 % 7 Unknown COMPLETE BLOOD COUNT 4171634 RDW 17.4 % 7 Unknown COMPLETE BLOOD COUNT 1539158 Eos Auto 1.5 % 7 Unknown COMPLETE BLOOD COUNT 5218674 Baso Auto 0.4 % 7 Unknown COMPLETE BLOOD COUNT 1912611 Neutrophil Abs 5.45 10e9/L Unknown COMPLETE BLOOD COUNT [id number] Lymphocyte Abs 0.67 10e9/L Unknown COMPLETE BLOOD COUNT 4464432 Monocyte Abs 0.55 10e9/L 11/24 Unknown COMPLETE BLOOD COUNT 6503755 Eosinophil Abs 0.10 10e9/L Unknown COMPLETE BLOOD COUNT 2367876 RDW-SD 44.1 fL 7 Unknown COMPLETE BLOOD COUNT 0886965 Basophil Abs 0.03 10e9/L 11/24 Unknown COMPLETE BLOOD COUNT 3328701 WBC 7.6 10e9/L 12/13/19 17 Unknown COMPLETE BLOOD COUNT 2943390 RBC 3.71 10e12/L 2016 Unknown COMPLETE BLOOD COUNT 9860762 HEMOGLOBIN 8.0 g/dL 12/13/19 17 Unknown COMPLETE BLOOD COUNT 1843529 HEMATOCRIT 27.3 % 12/13/19 17 Unknown COMPLETE BLOOD COUNT 6294115 MCV 73.6 fL 7 Unknown COMPLETE BLOOD COUNT 8723549 MCH 21.6 pg 7 Unknown COMPLETE BLOOD COUNT 8430921 MCHC 29.3 g/dL 7 Unknown COMPLETE BLOOD COUNT 5771463 PLATELET COUNT 330 10e9/L Unknown COMPLETE BLOOD COUNT 8184186 Mean Plt Volume 9.7 fL Unknown COMPLETE BLOOD COUNT 5585914 Neut Auto 73.2 % 7 Unknown COMPLETE BLOOD COUNT 9889617 Lymph Auto 14.5 % 12/13/19 17 Unknown COMPLETE BLOOD COUNT 3263867 Blair Auto 10.5 % 7 Unknown COMPLETE BLOOD COUNT 1933863 RDW 17.3 % 7 Unknown COMPLETE BLOOD COUNT 0844484 Eos Auto 1.3 % 7 Unknown COMPLETE BLOOD COUNT 8176346 Baso Auto 0.5 % 7 Unknown COMPLETE BLOOD COUNT 6995148 Neutrophil Abs 5.56 10e9/L Unknown COMPLETE BLOOD COUNT 7699068 Lymphocyte Abs 1.10 10e9/L Unknown COMPLETE BLOOD COUNT 8828921 Monocyte Abs 0.80 10e9/L 11/23 Unknown COMPLETE BLOOD COUNT 8323064 Eosinophil Abs 0.10 10e9/L Unknown COMPLETE BLOOD COUNT 2955337 RDW-SD 45.2 fL 7 Unknown COMPLETE BLOOD COUNT 5667304 Basophil Abs 0.04 10e9/L 11/23 Unknown IRON 90288 Iron 69 ug/dL 03/09/2016 Unknown VITAMIN B 12 42368 VITAMIN B12 311 pg/mL 03/09/2016 Unkn own MEAN GLUC 6442644 Mean Glucose 260 mg/dL 03/07/2016 Unknow n GLYCOSYLATED HEMOGLOBIN TEST 50838 Hgb A1c 70652-5 10.7 % 0 03/07/2016 Unknown COMPREHENSIVE METABOLIC 81588 AST 14 U/L 2015 Unknown COMPREHENSIVE METABOLIC 17905 ALT 21 U/L 2015 Unknown COMPREHENSIVE METABOLIC 18190 BUN 27 mg/dL 2015 Unknown COMPREHENSIVE METABOLIC 98416 ALBUMIN 4.5 g/dL 2015 Unknown COMPREHENSIVE METABOLIC 02547 CHLORIDE 101 mmol/L 03/06 Unknown COMPREHENSIVE METABOLIC 53776 Bili Total 0.4 mg/dL 03/06 Unknown COMPREHENSIVE METABOLIC 67066 ALK PHOS 49 U/L 2015 Unknown COMPREHENSIVE METABOLIC 16522 SODIUM 136 mmol/L 03/06 Unknown COMPREHENSIVE METABOLIC 30753 CREATININE 1.16 mg/dL 02/22 Unknown COMPREHENSIVE METABOLIC 42973 CALCIUM 9.9 mg/dL 2015 Unknown COMPREHENSIVE METABOLIC 38615 POTASSIUM 4.5 mmol/L 03/06 Unknown COMPREHENSIVE METABOLIC 22745 Total Protein 6.7 g/dL Unknown COMPREHENSIVE METABOLIC 92225 Glucose 245 mg/dL 2015 Unknown COMPREHENSIVE METABOLIC 35141 Bicarbonate 24 mmol/L 02/22 Unknown COMPREHENSIVE METABOLIC 86919 AGAP 11 mmol/L 2015 Unknown THYROID STIMULATING HORMONE 24620 TSH 0.775 uIU/mL 03/06/2016 Unknown TESTOSTERONE TOTAL 41602 Testos Total 96 ng/dL 03/06/20 16 Unknown LIPID GROUP 16458 Cholesterol 146 mg/dL 03/06/2016 Unkno wn LIPID GROUP 65249 Triglyceride 249 mg/dL 03/06/2016 Unkn own LIPID GROUP 06442 HDL CHOLESTEROL 46 mg/dL 03/06/2016 U nknown LIPID GROUP 96122 Chol/HDL Ratio 3.17 ratio 03/06/2016 U nknown LIPID GROUP 74572 NON-HDL Chol 100 mg/dL 03/06/2016 Unkn own LIPID GROUP 91487 LDL Cholesterol 50 mg/dL 03/06/2016 U nknown COMPLETE BLOOD COUNT 6354308 WBC 11.2 10e9/L 016 Unknown COMPLETE BLOOD COUNT 8077570 RBC 3.94 10e12/L 2015 Unknown COMPLETE BLOOD COUNT 4422226 HEMOGLOBIN 11.4 g/dL 03/06/20 16 Unknown COMPLETE BLOOD COUNT 6387001 HEMATOCRIT 33.7 % 03/06/20 16 Unknown COMPLETE BLOOD COUNT 9517673 MCV 85.5 fL 6 Unknown COMPLETE BLOOD COUNT 9948235 MCH 28.9 pg 6 Unknown COMPLETE BLOOD COUNT 3486374 MCHC 33.8 g/dL 6 Unknown COMPLETE BLOOD COUNT 4364636 PLATELET COUNT 204 10e9/L Unknown COMPLETE BLOOD COUNT 9357626 Mean Plt Volume 10.1 fL Unknown COMPLETE BLOOD COUNT 3847726 Neut Auto 85.9 % 6 Unknown COMPLETE BLOOD COUNT 8038183 Lymph Auto 6.8 % 03/06/20 16 Unknown COMPLETE BLOOD COUNT 8950276 Blair Auto 7.0 % 6 Unknown COMPLETE BLOOD COUNT 4819483 RDW 13.7 % 6 Unknown COMPLETE BLOOD COUNT 9528696 Eos Auto 0.1 % 6 Unknown COMPLETE BLOOD COUNT 8344309 Baso Auto 0.2 % 6 Unknown COMPLETE BLOOD COUNT 8809138 Neutrophil Abs 9.62 10e9/L Unknown COMPLETE BLOOD COUNT 4946272 Lymphoctye Abs 0.76 10e9/L Unknown COMPLETE BLOOD COUNT 1798899 Monocyte Abs 0.78 10e9/L 02/22 Unknown COMPLETE BLOOD COUNT 2446458 Eosinophil Abs 0.01 10e9/L Unknown COMPLETE BLOOD COUNT 9446746 RDW-SD 41.9 fL 6 Unknown COMPLETE BLOOD COUNT 9263593 Basophil Abs 0.02 10e9/L 02/22 Unknown FREE T4 40710 T4 Free 0.89 ng/dL 03/06/2016 Unknown GFR CALC 0416239 GFR Non Afr Amr >60 mL/min 03/06/2016 Un known GFR CALC 2874104 GFR Afr Amr >60 mL/min 03/06/2016 Unknow n PSA EQUIMOLAR JONATAN 34007 PSA Total 0.78 ng/mL 6 Unknown FREE T4 68847 FREE T4 0.90 NG/DL 07/01/2015 Unknown LIPID GROUP 79547 HDL TEST 44 MG/DL 07/01/2015 Unknown LIPID GROUP 94591 TRIG 303 MG/DL 07/01/2015 Unknown LIPID GROUP 35534 TEST LDL 56 MG/DL 07/01/2015 Unknown LIPID GROUP 19833 CHOL 161 MG/DL 07/01/2015 Unknown LIPID GROUP 89049 RCHOL/HDL 3.66 RATIO 07/01/2015 Unknow n LIPID GROUP 38092 NON-HDL CH 117 MG/DL 07/01/2015 Unknow n THYROID STIMULATING HORMONE 74887 TSH 1.783 uIU/ML 07/01/2015 Unknown COMPLETE BLOOD COUNT 9613652 WBC 6.6 10e9/L 07/01/20 15 Unknown COMPLETE BLOOD COUNT 1350387 RBC 4.18 10e12/L 2014 Unknown COMPLETE BLOOD COUNT 8343762 HGB 12.2 g/dL 5 Unknown COMPLETE BLOOD COUNT 3523098 HCT DET 37.0 % 5 Unknown COMPLETE BLOOD COUNT 9554953 MCV 88.5 fL 5 Unknown COMPLETE BLOOD COUNT 5745413 MCH 29.2 pg 5 Unknown COMPLETE BLOOD COUNT 0790380 MCHC 33.0 g/dL 5 Unknown COMPLETE BLOOD COUNT 4282396 PLT 224 10e9/L 07/01/20 15 Unknown COMPLETE BLOOD COUNT 5440217 MPV 10.4 fL 5 Unknown COMPLETE BLOOD COUNT 4308003 SUSIE % 72.6 % 5 Unknown COMPLETE BLOOD COUNT 0416356 LY % 14.1 % 5 Unknown COMPLETE BLOOD COUNT 5764908 MON % 10.2 % 5 Unknown COMPLETE BLOOD COUNT 7055773 EOS % 2.6 % 5 Unknown COMPLETE BLOOD COUNT 7496719 BASO % 0.5 % 5 Unknown COMPLETE BLOOD COUNT 8839394 RDW 14.1 % 5 Unknown COMPLETE BLOOD COUNT 3766828 ABS SUSIE 4.79 10e9/L 015 Unknown COMPLETE BLOOD COUNT 6407329 ABS LYMPH 0.93 10e9/L 015 Unknown COMPLETE BLOOD COUNT 3685726 ABS MONO 0.67 10e9/L 015 Unknown COMPLETE BLOOD COUNT 4852930 ABS EOS 0.17 10e9/L 015 Unknown COMPLETE BLOOD COUNT 4466996 ABS BASO 0.03 10e9/L 015 Unknown COMPLETE BLOOD COUNT 1640124 RDW-SD 43.9 fL 5 Unknown PSA EQUIMOLAR JONATAN 33465 PSA EQ 0.73 NG/ML 5 Unknown COMPREHENSIVE METABOLIC 03488 AST 24 U/L 2014 Unknown COMPREHENSIVE METABOLIC 14414 ALT 26 IU/L 2014 Unknown COMPREHENSIVE METABOLIC 51194 BUN 26 MG/DL 2014 Unknown COMPREHENSIVE METABOLIC 43461 ALBUMIN 4.6 GM/DL 2014 Unknown COMPREHENSIVE METABOLIC 50655 CHLORIDE 102 MMOL/L 06/01 Unknown COMPREHENSIVE METABOLIC 98731 BILI TOT 0.5 MG/DL 2014 Unknown COMPREHENSIVE METABOLIC 05967 ALK PHOS 56 U/L 2014 Unknown COMPREHENSIVE METABOLIC 56203 SODIUM 136 MMOL/L 06/01 Unknown COMPREHENSIVE METABOLIC 53046 CREATININE 1.16 MG/DL 04/2015 Unknown COMPREHENSIVE METABOLIC 43236 CALCIUM 9.8 MG/DL 2014 Unknown COMPREHENSIVE METABOLIC 32168 POTASSIUM 4.6 MMOL/L 06/01 Unknown COMPREHENSIVE METABOLIC 44176 PROT TOT 7.4 GM/DL 2014 Unknown COMPREHENSIVE METABOLIC 68972 Glucose 223 MG/DL 2014 Unknown COMPREHENSIVE METABOLIC 24263 BICARB 27 MMOL/L 2014 Unknown COMPREHENSIVE METABOLIC 93386 ANION GAP 7 MEQ/L 2014 Unknown GFR CALC 7285679 GFR AA >60 ML/MIN 06/01/2015 Unknown GFR CALC 8432171 GFR NON-AA >60 ML/MIN 06/01/2015 Unknown GLYCOSYLATED HEMOGLOBIN TEST 71739 A1C HPLC 42408-2 8.9 % 0 06/01/2015 Unknown GFR CALC 7032169 GFR AA >60 ML/MIN 02/25/2015 Unknown GFR CALC 3718288 GFR NON-AA >60 ML/MIN 02/25/2015 Unknown COMPREHENSIVE METABOLIC 09887 AST 24 U/L 2014 Unknown COMPREHENSIVE METABOLIC 03118 ALT 25 IU/L 2014 Unknown COMPREHENSIVE METABOLIC 23137 BUN 14 MG/DL 2014 Unknown COMPREHENSIVE METABOLIC 67921 ALBUMIN 4.5 GM/DL 2014 Unknown COMPREHENSIVE METABOLIC 45959 CHLORIDE 99 MMOL/L 2014 Unknown COMPREHENSIVE METABOLIC 06158 BILI TOT 0.5 MG/DL 2014 Unknown COMPREHENSIVE METABOLIC 07149 ALK PHOS 48 U/L 2014 Unknown COMPREHENSIVE METABOLIC 55061 SODIUM 136 MMOL/L 02/25 Unknown COMPREHENSIVE METABOLIC 01561 CREATININE 0.97 MG/DL 12/2014 Unknown COMPREHENSIVE METABOLIC 13884 CALCIUM 9.9 MG/DL 2014 Unknown COMPREHENSIVE METABOLIC 56523 POTASSIUM 4.4 MMOL/L 02/25 Unknown COMPREHENSIVE METABOLIC 90986 PROT TOT 7.1 GM/DL 2014 Unknown COMPREHENSIVE METABOLIC 33737 Glucose 171 MG/DL 2014 Unknown COMPREHENSIVE METABOLIC 07738 BICARB 25 MMOL/L 2014 Unknown COMPREHENSIVE METABOLIC 73266 ANION GAP 12 MEQ/L 2014 Unknown PROTEIN/CREAT URINE WITH RATIO 22839|51566 PROT R U 19 MG/D L 08/27/2014 Unknown PROTEIN/CREAT URINE WITH RATIO 19081|68389 CREAT R U 111 MG/ DL 08/27/2014 Unknown PROTEIN/CREAT URINE WITH RATIO 02438|35516 XRATIO P/C 171 MG /G 08/27/2014 Unknown MICROALBUMIN URINE RANDOM 34706 MICRL MG/L 34.7 MG/L 12/2013 Unknown MICROALBUMIN URINE RANDOM 15499 XM.ALB/CRE 32.7 MG/GCR 1 10/28/2013 Unknown MICROALBUMIN URINE RANDOM 30306 CREAT MG/D 106 MG/DL 12/2013 Unknown MICROALBUMIN URINE RANDOM 33449 CRE/100 1.06 G/L 12/2013 Unknown COMPLETE BLOOD COUNT [id number] WBC 7.1 10e9/L 08/05/20 14 Unknown COMPLETE BLOOD COUNT [id number] RBC 4.35 10e12/L 2013 Unknown COMPLETE BLOOD COUNT [id number] HGB 12.9 g/dL 4 Unknown COMPLETE BLOOD COUNT [id number] HCT DET 39.4 % 4 Unknown COMPLETE BLOOD COUNT [id number] MCV 90.6 fL 4 Unknown COMPLETE BLOOD COUNT [id number] MCH 29.7 pg 4 Unknown COMPLETE BLOOD COUNT [id number] MCHC 32.7 g/dL 4 Unknown COMPLETE BLOOD COUNT [id number] PLT 240 10e9/L 08/05/20 14 Unknown COMPLETE BLOOD COUNT [id number] MPV 10.3 fL 4 Unknown COMPLETE BLOOD COUNT [id number] SUSIE % 70.0 % 4 Unknown COMPLETE BLOOD COUNT [id number] LY % 16.4 % 4 Unknown COMPLETE BLOOD COUNT [id number] MON % 9.2 % 4 Unknown COMPLETE BLOOD COUNT [id number] EOS % 3.8 % 4 Unknown COMPLETE BLOOD COUNT [id number] BASO % 0.6 % 4 Unknown COMPLETE BLOOD COUNT [id number] RDW 13.4 % 4 Unknown COMPLETE BLOOD COUNT [id number] ABS SUSIE 4.97 10e9/L 014 Unknown COMPLETE BLOOD COUNT [id number] ABS LYMPH 1.16 10e9/L 014 Unknown COMPLETE BLOOD COUNT [id number] ABS MONO 0.65 10e9/L 014 Unknown COMPLETE BLOOD COUNT [id number] ABS EOS 0.27 10e9/L 014 Unknown COMPLETE BLOOD COUNT [id number] ABS BASO 0.04 10e9/L 014 Unknown COMPLETE BLOOD COUNT [id number] RDW-SD 43.3 fL 4 Unknown FREE T4 80128 FREE T4 1.02 NG/DL 08/05/2014 Unknown GFR CALC [id number] GFR AA >60 ML/MIN 08/05/2014 Unknown GFR CALC [id number] GFR NON-AA >60 ML/MIN 08/05/2014 Unknown GLYCOSYLATED HEMOGLOBIN TEST 05790 A1C HPLC 09753-0 7.7 % 1 10/05/2013 Unknown COMPREHENSIVE METABOLIC 73196 AST 19 U/L 2013 Unknown COMPREHENSIVE METABOLIC 60710 ALT 21 IU/L 2013 Unknown COMPREHENSIVE METABOLIC 52927 BUN 25 MG/DL 2013 Unknown COMPREHENSIVE METABOLIC 99961 ALBUMIN 4.6 GM/DL 2013 Unknown COMPREHENSIVE METABOLIC 68003 CHLORIDE 103 MMOL/L 08/05 Unknown COMPREHENSIVE METABOLIC 30222 BILI TOT 0.4 MG/DL 2013 Unknown COMPREHENSIVE METABOLIC 05021 ALK PHOS 45 U/L 2013 Unknown COMPREHENSIVE METABOLIC 92380 SODIUM 138 MMOL/L 08/05 Unknown COMPREHENSIVE METABOLIC 84902 CREATININE 1.01 MG/DL 07/25 Unknown COMPREHENSIVE METABOLIC 34124 CALCIUM 9.8 MG/DL 2013 Unknown COMPREHENSIVE METABOLIC 18848 POTASSIUM 4.7 MMOL/L 08/05 Unknown COMPREHENSIVE METABOLIC 30016 PROT TOT 7.0 GM/DL 2013 Unknown COMPREHENSIVE METABOLIC 16716 Glucose 145 MG/DL 2013 Unknown COMPREHENSIVE METABOLIC 49421 BICARB 27 MMOL/L 2013 Unknown COMPREHENSIVE METABOLIC 26205 ANION GAP 8 MEQ/L 2013 Unknown THYROID STIMULATING HORMONE 89077 TSH 1.922 uIU/ML 08/05/2014 Unknown LIPID GROUP 21750 HDL TEST 47 MG/DL 08/05/2014 Unknown LIPID GROUP 50581 TRIG 224 MG/DL 08/05/2014 Unknown LIPID GROUP 85563 TEST LDL 125 MG/DL 08/05/2014 Unknown LIPID GROUP 23874 CHOL 217 MG/DL 08/05/2014 Unknown LIPID GROUP 17441 RCHOL/HDL 4.62 RATIO 08/05/2014 Unknow n LIPID GROUP 93797 NON-HDL CH 170 MG/DL 08/05/2014 Unknow n MYCOPLASMA ANTIBODY, IFA [id number] MYCO G IFA 1:256 03/24 Unknown MYCOPLASMA ANTIBODY, IFA [id number] MYCO M IFA <1:10 03/24 Unknown MYCOPLASMA ANTIBODY, IFA [id number] MYCO INTER SEE BELO 03/24 Unknown COMPLETE BLOOD COUNT 0641970 WBC 8.3 10e9/L 04/09/20 13 Unknown COMPLETE BLOOD COUNT [id number] RBC 4.61 10e12/L 2012 Unknown COMPLETE BLOOD COUNT [id number] HGB 13.9 g/dL 3 Unknown COMPLETE BLOOD COUNT [id number] HCT DET 41.2 % 3 Unknown COMPLETE BLOOD COUNT [id number] MCV 89.4 fL 3 Unknown COMPLETE BLOOD COUNT [id number] MCH 30.2 pg 3 Unknown COMPLETE BLOOD COUNT [id number] MCHC 33.7 g/dL 3 Unknown COMPLETE BLOOD COUNT [id number] PLT 249 10e9/L 04/09/20 13 Unknown COMPLETE BLOOD COUNT [id number] MPV 9.8 fL 3 Unknown COMPLETE BLOOD COUNT [id number] SUSIE % 65.9 % 3 Unknown COMPLETE BLOOD COUNT [id number] LY % 19.8 % 3 Unknown COMPLETE BLOOD COUNT [id number] MON % 10.8 % 3 Unknown COMPLETE BLOOD COUNT [id number] EOS % 3.0 % 3 Unknown COMPLETE BLOOD COUNT [id number] BASO % 0.5 % 3 Unknown COMPLETE BLOOD COUNT [id number] RDW 14.0 % 3 Unknown COMPLETE BLOOD COUNT [id number] ABS SUSIE 5.47 10e9/L 013 Unknown COMPLETE BLOOD COUNT [id number] ABS LYMPH 1.64 10e9/L 013 Unknown COMPLETE BLOOD COUNT [id number] ABS MONO 0.90 10e9/L 013 Unknown COMPLETE BLOOD COUNT [id number] ABS EOS 0.25 10e9/L 013 Unknown COMPLETE BLOOD COUNT [id number] ABS BASO 0.04 10e9/L 013 Unknown COMPLETE BLOOD COUNT [id number] RDW-SD 45.0 fL 3 Unknown URIC ACID 49966 URIC ACID 5.3 MG/DL 02/12/2013 Unknown FREE T4 05054 FREE T4 1.09 NG/DL 02/11/2013 Unknown COMPLETE BLOOD COUNT [id number] WBC 6.3 10e9/L 02/12/20 13 Unknown COMPLETE BLOOD COUNT [id number] RBC 4.29 10e12/L 2012 Unknown COMPLETE BLOOD COUNT 0544519 HGB 13.1 g/dL 3 Unknown COMPLETE BLOOD COUNT 8741101 HCT DET 39.7 % 3 Unknown COMPLETE BLOOD COUNT [id number] MCV 92.5 fL 3 Unknown COMPLETE BLOOD COUNT [id number] MCH 30.5 pg 3 Unknown COMPLETE BLOOD COUNT 1357184 MCHC 33.0 g/dL 3 Unknown COMPLETE BLOOD COUNT [id number] PLT 247 10e9/L 02/12/20 13 Unknown COMPLETE BLOOD COUNT 0938330 MPV 10.0 fL 3 Unknown COMPLETE BLOOD COUNT [id number] SUSIE % 73.4 % 3 Unknown COMPLETE BLOOD COUNT [id number] LY % 13.5 % 3 Unknown COMPLETE BLOOD COUNT [id number] MON % 9.4 % 3 Unknown COMPLETE BLOOD COUNT [id number] EOS % 2.9 % 3 Unknown COMPLETE BLOOD COUNT [id number] BASO % 0.8 % 3 Unknown COMPLETE BLOOD COUNT 4801853 RDW 13.8 % 3 Unknown COMPLETE BLOOD COUNT [id number] ABS SUSIE 4.62 10e9/L 013 Unknown COMPLETE BLOOD COUNT [id number] ABS LYMPH 0.85 10e9/L 013 Unknown COMPLETE BLOOD COUNT [id number] ABS MONO 0.59 10e9/L 013 Unknown COMPLETE BLOOD COUNT [id number] ABS EOS 0.18 10e9/L 013 Unknown COMPLETE BLOOD COUNT [id number] ABS BASO 0.05 10e9/L 013 Unknown COMPLETE BLOOD COUNT [id number] RDW-SD 45.7 fL 3 Unknown HEMOGLOBIN A1C (GLYCOSYLATED) 2413859 A1C HPLC 10480-0 7.5 % 02/11/2013 Unknown THYROID STIMULATING HORMONE 95748 TSH 1.466 uIU/ML 02/11/2013 Unknown VITAMIN B 12 FOLIC ACID 22107|02702 VIT B 12 625 PG/ML 01/23 Unknown VITAMIN B 12 FOLIC ACID 05320|50732 FOLIC ACID 15.6 NG/ML Unknown COMPREHENSIVE METABOLIC 01525 AST 18 U/L 2012 Unknown COMPREHENSIVE METABOLIC 85975 ALT 21 IU/L 2012 Unknown COMPREHENSIVE METABOLIC 31236 BUN 25 MG/DL 2012 Unknown COMPREHENSIVE METABOLIC 08623 ALBUMIN 4.6 GM/DL 2012 Unknown COMPREHENSIVE METABOLIC 99871 CHLORIDE 103 MMOL/L 02/11 Unknown COMPREHENSIVE METABOLIC 75496 BILI TOT 0.3 MG/DL 2012 Unknown COMPREHENSIVE METABOLIC 14346 ALK PHOS 53 U/L 2012 Unknown COMPREHENSIVE METABOLIC 28037 SODIUM 136 MMOL/L 02/11 Unknown COMPREHENSIVE METABOLIC 93112 CREATININE 1.16 MG/DL 01/23 Unknown COMPREHENSIVE METABOLIC 09091 CALCIUM 10.0 MG/DL 02/11 Unknown COMPREHENSIVE METABOLIC 21048 POTASSIUM 4.9 MMOL/L 02/11 Unknown COMPREHENSIVE METABOLIC 50108 PROT TOT 7.0 GM/DL 2012 Unknown COMPREHENSIVE METABOLIC 65053 Glucose 192 MG/DL 2012 Unknown COMPREHENSIVE METABOLIC 14122 BICARB 26 MMOL/L 2012 Unknown COMPREHENSIVE METABOLIC 50203 ANION GAP 7 MEQ/L 2012 Unknown GFR CALC 7570430 GFR AA >60 ML/MIN 02/11/2013 Unknown GFR CALC 5004997 GFR NON-AA >60 ML/MIN 02/11/2013 Unknown C-REACTIVE PROTEIN (CRP) QUANT 94322 CRP 2.7 MG/DL 02/11/2013 Unknown GFR CALC 0349320 GFR AA >60 ML/MIN 09/19/2012 Unknown GFR CALC 1205232 GFR NON-AA >60 ML/MIN 09/19/2012 Unknown HEMOGLOBIN A1C (GLYCOSYLATED) 6599727 A1C HPLC 07700-7 7.2 % 09/19/2012 Unknown COMPREHENSIVE METABOLIC 53603 AST 13 U/L 2011 Unknown COMPREHENSIVE METABOLIC 59437 ALT 17 IU/L 2011 Unknown COMPREHENSIVE METABOLIC 39967 BUN 25 MG/DL 2011 Unknown COMPREHENSIVE METABOLIC 87633 ALBUMIN 4.5 GM/DL 2011 Unknown COMPREHENSIVE METABOLIC 04743 CHLORIDE 104 MMOL/L 09/19 Unknown COMPREHENSIVE METABOLIC 29745 BILI TOT 0.3 MG/DL 2011 Unknown COMPREHENSIVE METABOLIC 39653 ALK PHOS 43 U/L 2011 Unknown COMPREHENSIVE METABOLIC 46348 SODIUM 139 MMOL/L 09/19 Unknown COMPREHENSIVE METABOLIC 74603 CREATININE 1.10 MG/DL 08/25 Unknown COMPREHENSIVE METABOLIC 42288 CALCIUM 9.8 MG/DL 2011 Unknown COMPREHENSIVE METABOLIC 25854 POTASSIUM 4.8 MMOL/L 09/19 Unknown COMPREHENSIVE METABOLIC 82733 PROT TOT 6.5 GM/DL 2011 Unknown COMPREHENSIVE METABOLIC 02934 Glucose 148 MG/DL 2011 Unknown COMPREHENSIVE METABOLIC 15889 BICARB 25 MMOL/L 2011 Unknown COMPREHENSIVE METABOLIC 86626 ANION GAP 10 MEQ/L 2011 Unknown LIPID GROUP 05189 HDL TEST 44 MG/DL 09/19/2012 Unknown LIPID GROUP 98436 TRIG 318 MG/DL 09/19/2012 Unknown LIPID GROUP 61606 TEST LDL 100 MG/DL 09/19/2012 Unknown LIPID GROUP 47141 CHOL 208 MG/DL 09/19/2012 Unknown LIPID GROUP 29202 RCHOL/HDL 4.73 RATIO 09/19/2012 Unknow n FREE T4 35039 FREE T4 0.87 NG/DL 05/06/2012 Unknown GLYCOSYLATED HEMOGLOBIN TEST 26470 A1C HPLC 75007-2 6.4 % 0 05/06/2012 Unknown LIPID GROUP 04263 HDL TEST 44 MG/DL 05/06/2012 Unknown LIPID GROUP 80910 TRIG 177 MG/DL 05/06/2012 Unknown LIPID GROUP 19576 TEST LDL 113 MG/DL 05/06/2012 Unknown LIPID GROUP 75125 CHOL 192 MG/DL 05/06/2012 Unknown LIPID GROUP 79486 RCHOL/HDL 4.36 RATIO 05/06/2012 Unknow n THYROID STIMULATING HORMONE 57546 TSH 1.151 uIU/ML 05/06/2012 Unknown COMPLETE BLOOD COUNT 38009 WBC 7.8 10e9/L 05/06/20 12 Unknown COMPLETE BLOOD COUNT 71882 RBC 4.31 10e12/L 2011 Unknown COMPLETE BLOOD COUNT 70107 HGB 12.8 g/dL 2 Unknown COMPLETE BLOOD COUNT 57381 HCT DET 39.1 % 2 Unknown COMPLETE BLOOD COUNT 69106 MCV 90.7 fL 2 Unknown COMPLETE BLOOD COUNT 67952 MCH 29.7 pg 2 Unknown COMPLETE BLOOD COUNT 62222 MCHC 32.7 g/dL 2 Unknown COMPLETE BLOOD COUNT 95836 PLT 207 10e9/L 05/06/20 12 Unknown COMPLETE BLOOD COUNT 88855 MPV 10.2 fL 2 Unknown COMPLETE BLOOD COUNT 58494 SUSIE % 74.2 % 2 Unknown COMPLETE BLOOD COUNT 75625 LY % 12.8 % 2 Unknown COMPLETE BLOOD COUNT 03902 MON % 11.0 % 2 Unknown COMPLETE BLOOD COUNT 17420 EOS % 1.7 % 2 Unknown COMPLETE BLOOD COUNT 96390 BASO % 0.3 % 2 Unknown COMPLETE BLOOD COUNT 24151 RDW 13.7 % 2 Unknown COMPLETE BLOOD COUNT 62304 ABS SUSIE 5.79 10e9/L 012 Unknown COMPLETE BLOOD COUNT 55861 ABS LYMPH 1.00 10e9/L 012 Unknown COMPLETE BLOOD COUNT 35132 ABS MONO 0.86 10e9/L 012 Unknown COMPLETE BLOOD COUNT 20812 ABS EOS 0.13 10e9/L 012 Unknown COMPLETE BLOOD COUNT 53620 ABS BASO 0.02 10e9/L 012 Unknown COMPLETE BLOOD COUNT 33314 RDW-SD 44.4 fL 2 Unknown COMPREHENSIVE METABOLIC 97335 AST 13 U/L 2011 Unknown COMPREHENSIVE METABOLIC 09778 ALT 14 IU/L 2011 Unknown COMPREHENSIVE METABOLIC 12166 BUN 17 MG/DL 2011 Unknown COMPREHENSIVE METABOLIC 09059 ALBUMIN 4.5 GM/DL 2011 Unknown COMPREHENSIVE METABOLIC 93118 CHLORIDE 101 MMOL/L 05/06 Unknown COMPREHENSIVE METABOLIC 01721 BILI TOT 0.5 MG/DL 2011 Unknown COMPREHENSIVE METABOLIC 71613 ALK PHOS 42 U/L 2011 Unknown COMPREHENSIVE METABOLIC 88848 SODIUM 141 MMOL/L 05/06 Unknown COMPREHENSIVE METABOLIC 43476 CREATININE 1.02 MG/DL 04/24 Unknown COMPREHENSIVE METABOLIC 58227 CALCIUM 9.7 MG/DL 2011 Unknown COMPREHENSIVE METABOLIC 02186 POTASSIUM 4.6 MMOL/L 05/06 Unknown COMPREHENSIVE METABOLIC 79362 PROT TOT 6.5 GM/DL 2011 Unknown COMPREHENSIVE METABOLIC 61266 Glucose 139 MG/DL 2011 Unknown COMPREHENSIVE METABOLIC 48339 BICARB 29 MMOL/L 2011 Unknown COMPREHENSIVE METABOLIC 93994 ANION GAP 11 MEQ/L 2011 Unknown GFR CALC 1486835 GFR AA >60 ML/MIN 05/06/2012 Unknown GFR CALC 3696695 GFR NON-AA 54.0L ML/MIN 05/06/2012 Unkno wn GLYCOSYLATED HEMOGLOBIN TEST 95920 A1C HPLC 10813-8 6.6 % 1 09/30/2010 Unknown FREE T4 68380 FREE T4 1.00 NG/DL 07/26/2011 Unknown LIPID GROUP 44531 HDL TEST 40 MG/DL 07/26/2011 Unknown LIPID GROUP 96897 TRIG 136 MG/DL 07/26/2011 Unknown LIPID GROUP 83210 TEST LDL 126 MG/DL 07/26/2011 Unknown LIPID GROUP 85533 CHOL 193 MG/DL 07/26/2011 Unknown LIPID GROUP 66984 RCHOL/HDL 4.83 RATIO 07/26/2011 Unknow n COMPREHENSIVE METABOLIC 29044 AST 15 U/L 2010 Unknown COMPREHENSIVE METABOLIC 45596 ALT 13 IU/L 2010 Unknown COMPREHENSIVE METABOLIC 86624 BUN 17 MG/DL 2010 Unknown COMPREHENSIVE METABOLIC 79365 ALBUMIN 4.4 GM/DL 2010 Unknown COMPREHENSIVE METABOLIC 63138 CHLORIDE 102 MMOL/L 07/26 Unknown COMPREHENSIVE METABOLIC 81511 BILI TOT 0.5 MG/DL 2010 Unknown COMPREHENSIVE METABOLIC 11845 ALK PHOS 54 U/L 2010 Unknown COMPREHENSIVE METABOLIC 25101 SODIUM 138 MMOL/L 07/26 Unknown COMPREHENSIVE METABOLIC 81653 CREATININE 0.95 MG/DL 10/2010 Unknown COMPREHENSIVE METABOLIC 90026 CALCIUM 9.3 MG/DL 2010 Unknown COMPREHENSIVE METABOLIC 59160 POTASSIUM 4.3 MMOL/L 07/26 Unknown COMPREHENSIVE METABOLIC 73893 PROT TOT 6.7 GM/DL 2010 Unknown COMPREHENSIVE METABOLIC 70399 Glucose 116 MG/DL 2010 Unknown COMPREHENSIVE METABOLIC 37177 BICARB 28 MMOL/L 2010 Unknown COMPREHENSIVE METABOLIC 95923 ANION GAP 8 MEQ/L 2010 Unknown PSA EQUIMOLAR JONATAN 01417 PSA EQ 1.01 NG/ML 1 Unknown COMPLETE BLOOD COUNT 84790 WBC 6.4 10e9/L 07/26/20 11 Unknown COMPLETE BLOOD COUNT 27328 RBC 4.43 10e12/L 2010 Unknown COMPLETE BLOOD COUNT 21380 HGB 13.2 g/dL 1 Unknown COMPLETE BLOOD COUNT 30027 HCT DET 39.3 % 1 Unknown COMPLETE BLOOD COUNT 77444 MCV 88.7 fL 1 Unknown COMPLETE BLOOD COUNT 52248 MCH 29.8 pg 1 Unknown COMPLETE BLOOD COUNT 94573 MCHC 33.6 g/dL 1 Unknown COMPLETE BLOOD COUNT 19451 PLT 226 10e9/L 07/26/20 11 Unknown COMPLETE BLOOD COUNT 53354 MPV 9.9 fL 1 Unknown COMPLETE BLOOD COUNT 90871 SUSIE % 65.4 % 1 Unknown COMPLETE BLOOD COUNT 00358 LY % 19.7 % 1 Unknown COMPLETE BLOOD COUNT 69937 MON % 10.8 % 1 Unknown COMPLETE BLOOD COUNT 63957 EOS % 3.6 % 1 Unknown COMPLETE BLOOD COUNT 23019 BASO % 0.5 % 1 Unknown COMPLETE BLOOD COUNT 17518 RDW 13.2 % 1 Unknown COMPLETE BLOOD COUNT 56076 ABS SUSIE 4.19 10e9/L 011 Unknown COMPLETE BLOOD COUNT 01389 ABS LYMPH 1.26 10e9/L 011 Unknown COMPLETE BLOOD COUNT 49240 ABS MONO 0.69 10e9/L 011 Unknown COMPLETE BLOOD COUNT 10578 ABS EOS 0.23 10e9/L 011 Unknown COMPLETE BLOOD COUNT 37258 ABS BASO 0.03 10e9/L 011 Unknown COMPLETE BLOOD COUNT 88857 RDW-SD 41.7 fL 1 Unknown THYROID STIMULATING HORMONE 20353 TSH 1.345 uIU/ML 07/26/2011 Unknown GFR CALC 8882766 GFR AA >60 ML/MIN 07/26/2011 Unknown GFR CALC 6875111 GFR NON-AA >60 ML/MIN 07/26/2011 Unknown BRAIN NATRIURETIC PEPTIDE(BNP) 09082 BRAIN PEP 23 pg/mL 01/19/2011 Unknown CANCEL 6074465 CANCEL FOOTNOTE 01/18/2011 Unknown TESTOSTERONE TOTAL 04740 TESTOS TO 138 NG/DL 12/19/2010 Unknown COMPLETE BLOOD COUNT 77595 WBC 8.4 10e9/L 12/08/19 11 Unknown COMPLETE BLOOD COUNT 43323 RBC 4.40 10e12/L 2010 Unknown COMPLETE BLOOD COUNT 36060 HGB 13.3 g/dL 1 Unknown COMPLETE BLOOD COUNT 03177 HCT DET 39.8 % 1 Unknown COMPLETE BLOOD COUNT 88541 MCV 90.5 fL 1 Unknown COMPLETE BLOOD COUNT 95290 MCH 30.2 pg 1 Unknown COMPLETE BLOOD COUNT 21169 MCHC 33.4 g/dL 1 Unknown COMPLETE BLOOD COUNT 85709 PLT 201 10e9/L 12/08/19 11 Unknown COMPLETE BLOOD COUNT 18689 MPV 10.6 fL 1 Unknown COMPLETE BLOOD COUNT 87881 SUSIE % 72.5 % 1 Unknown COMPLETE BLOOD COUNT 14635 LY % 14.8 % 1 Unknown COMPLETE BLOOD COUNT 82254 MON % 10.6 % 1 Unknown COMPLETE BLOOD COUNT 47831 EOS % 1.7 % 1 Unknown COMPLETE BLOOD COUNT 72925 BASO % 0.4 % 1 Unknown COMPLETE BLOOD COUNT 10186 RDW 13.7 % 1 Unknown COMPLETE BLOOD COUNT 22924 ABS SUSIE 6.09 10e9/L 011 Unknown COMPLETE BLOOD COUNT 61897 ABS LYMPH 1.24 10e9/L 011 Unknown COMPLETE BLOOD COUNT 96375 ABS MONO 0.89 10e9/L 011 Unknown COMPLETE BLOOD COUNT 91777 ABS EOS 0.14 10e9/L 011 Unknown COMPLETE BLOOD COUNT 43478 ABS BASO 0.03 10e9/L 011 Unknown COMPLETE BLOOD COUNT 95485 RDW-SD 44.0 fL 1 Unknown LIPID GROUP 90019 HDL TEST 40 MG/DL 12/07/2010 Unknown LIPID GROUP 12474 TRIG 383 MG/DL 12/07/2010 Unknown LIPID GROUP 28964 TEST LDL 82 MG/DL 12/07/2010 Unknown LIPID GROUP 76934 CHOL 199 MG/DL 12/07/2010 Unknown LIPID GROUP 21198 RCHOL/HDL 4.98 RATIO 12/07/2010 Unknow n GFR CALC 6455881 GFR AA >60 ML/MIN 12/07/2010 Unknown GFR CALC 3070085 GFR NON-AA >60 ML/MIN 12/07/2010 Unknown COMPREHENSIVE METABOLIC 53846 AST 29 U/L 2010 Unknown COMPREHENSIVE METABOLIC 18300 ALT 39 IU/L 2010 Unknown COMPREHENSIVE METABOLIC 84383 BUN 17 MG/DL 2010 Unknown COMPREHENSIVE METABOLIC 39163 ALBUMIN 4.9 GM/DL 2010 Unknown COMPREHENSIVE METABOLIC 97952 CHLORIDE 100 MMOL/L 12/07 Unknown COMPREHENSIVE METABOLIC 76848 BILI TOT 0.3 MG/DL 2010 Unknown COMPREHENSIVE METABOLIC 93804 ALK PHOS 53 U/L 2010 Unknown COMPREHENSIVE METABOLIC 14065 SODIUM 137 MMOL/L 12/07 Unknown COMPREHENSIVE METABOLIC 63215 CREATININE 0.98 MG/DL 11/22 Unknown COMPREHENSIVE METABOLIC 61622 CALCIUM 9.5 MG/DL 2010 Unknown COMPREHENSIVE METABOLIC 02197 POTASSIUM 4.3 MMOL/L 12/07 Unknown COMPREHENSIVE METABOLIC 53270 PROT TOT 6.6 GM/DL 2010 Unknown COMPREHENSIVE METABOLIC 76327 Glucose 176 MG/DL 2010 Unknown COMPREHENSIVE METABOLIC 44441 BICARB 28 MMOL/L 2010 Unknown COMPREHENSIVE METABOLIC 26304 ANION GAP 9 MEQ/L 2010 Unknown PSA EQUIMOLAR JONATAN 22794 PSA EQ 0.65 NG/ML 1 Unknown HEMOGLOBIN A1C (GLYCOSYLATED) 51833 A1C HPLC 87351-1 6.9 % 12/07/2010 Unknown Procedures Procedure Codes Date FLU VACC PRSV FREE INC ANTIG 65 AND OLDER CPT-4: 54968 08/07/2019 FLU VACC PRSV FREE INC ANTIG 65 AND OLDER CPT-4: 49127 08/07/2019 ADMIN INFLUENZA VIRUS VAC CPT-4: G0008 08/07/2019 THER/PROPH/DIAG INJ SC/IM CPT-4: 88373 07/14/2019 METHYLPREDNISOLONE INJECTION CPT-4: J2930 07/14/2019 ROUTINE VENIPUNCTURE CPT-4: 43453 06/17/2019 ASSAY THYROID STIM HORMONE CPT-4: 24569 06/17/2019 COMPREHEN METABOLIC PANEL CPT-4: 69369 06/17/2019 COMPLETE CBC W/AUTO DIFF WBC CPT-4: 24989 06/17/2019 ASSAY OF IRON CPT-4: 43151 06/17/2019 VITAMIN B-12 CPT-4: 53412 06/17/2019 RBC SED RATE AUTOMATED CPT-4: 75103 06/17/2019 THER/PROPH/DIAG INJ SC/IM CPT-4: 25315 06/10/2019 THER/PROPH/DIAG INJ SC/IM CPT-4: 45321 06/02/2019 THER/PROPH/DIAG INJ SC/IM CPT-4: 50515 05/27/2019 THER/PROPH/DIAG INJ SC/IM CPT-4: 97499 05/12/2019 ROUTINE VENIPUNCTURE CPT-4: 76788 05/08/2019 COMPREHEN METABOLIC PANEL CPT-4: 75469 05/08/2019 COMPLETE CBC W/AUTO DIFF WBC CPT-4: 14934 05/08/2019 A1C HPLC CPT-4: 54265 05/08/2019 VITAMIN D TOTAL (25 HYDROXY) CPT-4: 30177 05/08/2019 ASSAY OF IRON CPT-4: 54750 05/08/2019 ASSAY OF FERRITIN CPT-4: 74865 05/08/2019 VITAMIN B-12 CPT-4: 14992 05/08/2019 THER/PROPH/DIAG INJ SC/IM CPT-4: 63440 03/21/2019 METHYLPREDNISOLONE INJECTION CPT-4: J2930 03/21/2019 THER/PROPH/DIAG INJ SC/IM CPT-4: 52358 03/13/2019 METHYLPREDNISOLONE INJECTION CPT-4: J2930 03/13/2019 THER/PROPH/DIAG INJ SC/IM CPT-4: 22116 12/25/2018 METHYLPREDNISOLONE INJECTION CPT-4: J2930 12/25/2018 ROUTINE VENIPUNCTURE CPT-4: 65145 12/09/2018 ASSAY OF FREE THYROXINE CPT-4: 56777 12/09/2018 ASSAY THYROID STIM HORMONE CPT-4: 11984 12/09/2018 COMPREHEN METABOLIC PANEL CPT-4: 10042 12/09/2018 COMPLETE CBC W/AUTO DIFF WBC CPT-4: 87596 12/09/2018 LIPID PANEL CPT-4: 24174 12/09/2018 A1C HPLC CPT-4: 74670 12/09/2018 PRESCRIP TRANSMIT VIA ERX SY CPT-4: G8553 08/21/2018 PRESCRIP TRANSMIT VIA ERX SY CPT-4: G8553 08/07/2018 THER/PROPH/DIAG INJ SC/IM CPT-4: 69915 05/23/2018 METHYLPREDNISOLONE INJECTION CPT-4: J2930 05/23/2018 PRESCRIP TRANSMIT VIA ERX SY CPT-4: G8553 05/02/2018 THER/PROPH/DIAG INJ SC/IM CPT-4: 87887 04/29/2018 METHYLPREDNISOLONE INJECTION CPT-4: J2930 04/29/2018 DEXAMETHASONE SODIUM PHOS CPT-4: J1100 04/22/2018 THER/PROPH/DIAG INJ SC/IM CPT-4: 44326 04/22/2018 TRIAMCINOLONE ACET INJ NOS CPT-4: J3301 04/22/2018 PRESCRIP TRANSMIT VIA ERX SY CPT-4: G8553 04/22/2018 PRESCRIP TRANSMIT VIA ERX SY CPT-4: G8553 01/23/2018 URINALYSIS NONAUTO W/O SCOPE CPT-4: 83689 01/02/2018 URINE CULTURE/ COLONY COUNT CPT-4: 71867 01/02/2018 PRESCRIP TRANSMIT VIA ERX SY CPT-4: G8553 01/02/2018 PRESCRIP TRANSMIT VIA ERX SY CPT-4: G8553 12/28/2017 PRESCRIP TRANSMIT VIA ERX SY CPT-4: G8553 12/21/2017 CEFTRIAXONE SODIUM INJECTION CPT-4: J0696 12/17/2017 THER/PROPH/DIAG INJ SC/IM CPT-4: 46580 12/17/2017 THER/PROPH/DIAG INJ SC/IM CPT-4: 75861 12/17/2017 TRIAMCINOLONE ACET INJ NOS CPT-4: J3301 12/17/2017 PRESCRIP TRANSMIT VIA ERX SY CPT-4: G8553 12/17/2017 DRAIN/INJECT JOINT/BURSA CPT-4: 18517 12/11/2017 TRIAMCINOLONE ACET INJ NOS CPT-4: J3301 12/11/2017 DEXAMETHASONE SODIUM PHOS CPT-4: J1100 12/11/2017 DESTRUCT PREMALG LESION (Cryosurgery) CPT-4: 65902 PRESCRIP TRANSMIT VIA ERX SY CPT-4: G8553 10/17/2017 DEXAMETHASONE SODIUM PHOS CPT-4: J1100 08/02/2017 THER/PROPH/DIAG INJ SC/IM CPT-4: 94962 08/02/2017 TRIAMCINOLONE ACET INJ NOS CPT-4: J3301 08/02/2017 PRESCRIP TRANSMIT VIA ERX SY CPT-4: G8553 08/02/2017 PNEUMOCOCCAL VACC 23 OLIVIA IM CPT-4: 31610 07/24/2017 ADMIN PNEUMOCOCCAL VACCINE CPT-4: G0009 07/24/2017 ALBUTEROL NON-COMP UNIT CPT-4: J7613 07/02/2017 AIRWAY INHALATION TREATMENT CPT-4: 93780 07/02/2017 THER/PROPH/DIAG INJ SC/IM CPT-4: 31860 07/02/2017 METHYLPREDNISOLONE INJECTION CPT-4: J2930 07/02/2017 PRESCRIP TRANSMIT VIA ERX SY CPT-4: G8553 05/29/2017 ROUTINE VENIPUNCTURE CPT-4: 30286 04/17/2017 ASSAY OF IRON CPT-4: 15438 04/17/2017 VITAMIN B-12 CPT-4: 75059 04/17/2017 COMPREHEN METABOLIC PANEL CPT-4: 53350 04/17/2017 COMPLETE CBC W/AUTO DIFF WBC CPT-4: 37090 04/17/2017 ASSAY OF FERRITIN CPT-4: 82665 04/17/2017 ASSAY THYROID STIM HORMONE CPT-4: 75551 04/17/2017 A1C HPLC CPT-4: 86857 04/17/2017 DRAIN/INJECT JOINT/BURSA CPT-4: 54888 02/01/2017 TRIAMCINOLONE ACET INJ NOS CPT-4: J3301 02/01/2017 DEXAMETHASONE SODIUM PHOS CPT-4: J1100 02/01/2017 ROUTINE VENIPUNCTURE CPT-4: 13097 12/27/2016 COMPLETE CBC W/AUTO DIFF WBC CPT-4: 31894 12/27/2016 ROUTINE VENIPUNCTURE CPT-4: 76027 12/21/2016 COMPLETE CBC W/AUTO DIFF WBC CPT-4: 83028 12/21/2016 ROUTINE VENIPUNCTURE CPT-4: 80140 12/12/2016 COMPLETE CBC W/AUTO DIFF WBC CPT-4: 08047 12/12/2016 PRESCRIP TRANSMIT VIA ERX SY CPT-4: G8553 10/31/2016 PRESCRIP TRANSMIT VIA ERX SY CPT-4: G8553 10/03/2016 PRESCRIP TRANSMIT VIA ERX SY CPT-4: G8553 09/04/2016 DESTRUCT PREMALG LESION (Cryosurgery) CPT-4: 14535 DESTRUCT PREMALG LES 2-14 CPT-4: 84089 08/22/2016 PRESCRIP TRANSMIT VIA ERX SY CPT-4: G8553 08/10/2016 PRESCRIP TRANSMIT VIA ERX SY CPT-4: G8553 07/06/2016 FLU VACC PRSV FREE INC ANTIG 65 AND OLDER CPT-4: 16602 06/13/2016 PNEUMOCOCCAL VACC 13 OLIVIA IM CPT-4: 77278 06/13/2016 ADMIN INFLUENZA VIRUS VAC CPT-4: G0008 06/13/2016 ADMIN PNEUMOCOCCAL VACCINE CPT-4: G0009 06/13/2016 CERUM REMOVAL CPT-4: 97469 04/05/2016 PRESCRIP TRANSMIT VIA ERX SY CPT-4: G8553 04/03/2016 ROUTINE VENIPUNCTURE CPT-4: 69700 03/06/2016 ASSAY OF FREE THYROXINE CPT-4: 04098 03/06/2016 ASSAY THYROID STIM HORMONE CPT-4: 95913 03/06/2016 COMPREHEN METABOLIC PANEL CPT-4: 07957 03/06/2016 COMPLETE CBC W/AUTO DIFF WBC CPT-4: 34104 03/06/2016 LIPID PANEL CPT-4: 26451 03/06/2016 ASSAY OF PSA TOTAL CPT-4: 92659 03/06/2016 TESTOSTERONE TOTAL - MALE CPT-4: 49215 03/06/2016 A1C HPLC CPT-4: 23051 03/06/2016 ASSAY OF IRON CPT-4: 90992 03/06/2016 VITAMIN B-12 CPT-4: 31575 03/06/2016 INJ TENDON SHEATH/LIGAMENT CPT-4: 78446 02/17/2016 TRIAMCINOLONE ACET INJ NOS CPT-4: J3301 02/17/2016 DEXAMETHASONE SODIUM PHOS CPT-4: J1100 02/17/2016 PRESCRIP TRANSMIT VIA ERX SY CPT-4: G8553 01/31/2016 PRESCRIP TRANSMIT VIA ERX SY CPT-4: G8553 12/30/2015 PRESCRIP TRANSMIT VIA ERX SY CPT-4: G8553 12/06/2015 PRESCRIP TRANSMIT VIA ERX SY CPT-4: G8553 11/15/2015 PPPS, subseq visit CPT-4: G0439 10/05/2015 MICROALBUMIN QUANTITATIVE CPT-4: 66106 10/05/2015 PROTEIN/CREAT URINE WITH RATIO CPT-4: 63386|26932 6 ROUTINE VENIPUNCTURE CPT-4: 70406 07/01/2015 ASSAY OF FREE THYROXINE CPT-4: 81725 07/01/2015 ASSAY THYROID STIM HORMONE CPT-4: 69865 07/01/2015 COMPLETE CBC W/AUTO DIFF WBC CPT-4: 90361 07/01/2015 LIPID PANEL CPT-4: 09641 07/01/2015 ASSAY OF PSA TOTAL CPT-4: 75116 07/01/2015 AEROBIC WOUND CULTURE & STN CPT-4: 56362 06/28/2015 PRESCRIP TRANSMIT VIA ERX SY CPT-4: G8553 06/28/2015 AEROBIC WOUND CULTURE & STN CPT-4: 35427 06/03/2015 PRESCRIP TRANSMIT VIA ERX SY CPT-4: G8553 06/03/2015 ROUTINE VENIPUNCTURE CPT-4: 95594 06/01/2015 COMPREHEN METABOLIC PANEL CPT-4: 99934 06/01/2015 A1C HPLC CPT-4: 36778 06/01/2015 COMPREHEN METABOLIC PANEL CPT-4: 21744 02/25/2015 A1C HPLC CPT-4: 98737 02/25/2015 DESTRUCT PREMALG LESION (Cryosurgery) CPT-4: 25286 PROTEIN/CREAT URINE WITH RATIO CPT-4: 90546|93457 5 MICROALBUMIN QUANTITATIVE CPT-4: 67435 10/27/2014 INFLUENZA ASSAY W/OPTIC CPT-4: 31349 10/21/2014 PRESCRIP TRANSMIT VIA ERX SY CPT-4: G8553 10/06/2014 PRESCRIP TRANSMIT VIA ERX SY CPT-4: G8553 09/21/2014 PRESCRIP TRANSMIT VIA ERX SY CPT-4: G8553 09/02/2014 MICROALBUMIN QUANTITATIVE CPT-4: 12344 08/27/2014 PROTEIN/CREAT URINE WITH RATIO CPT-4: 35846|05064 4 PPPS, subseq visit CPT-4: G0439 08/10/2014 ROUTINE VENIPUNCTURE CPT-4: 86259 08/05/2014 ASSAY OF FREE THYROXINE CPT-4: 55910 08/05/2014 ASSAY THYROID STIM HORMONE CPT-4: 25453 08/05/2014 COMPREHEN METABOLIC PANEL CPT-4: 98676 08/05/2014 COMPLETE CBC W/AUTO DIFF WBC CPT-4: 74549 08/05/2014 LIPID PANEL CPT-4: 73928 08/05/2014 A1C HPLC CPT-4: 06407 08/05/2014 FLUZONE, 5ML (Medicare) CPT-4: Q2038 08/05/2014 ADMIN INFLUENZA VIRUS VAC CPT-4: G0008 08/05/2014 METHYLPREDNISOLONE 40 MG INJ CPT-4: J1030 12/16/2013 TRIAMCINOLONE ACET INJ NOS CPT-4: J3301 12/16/2013 DRAIN/INJECT JOINT/BURSA CPT-4: 09481 12/16/2013 PRESCRIP TRANSMIT VIA ERX SY CPT-4: G8553 10/09/2013 THER/PROPH/DIAG INJ SC/IM CPT-4: 65915 09/18/2013 METHYLPREDNISOLONE 40 MG INJ CPT-4: J1030 09/18/2013 TRIAMCINOLONE ACET INJ NOS CPT-4: J3301 09/18/2013 PRESCRIP TRANSMIT VIA ERX SY CPT-4: G8553 09/18/2013 PRESCRIP TRANSMIT VIA ERX SY CPT-4: G8553 08/13/2013 ROUTINE VENIPUNCTURE CPT-4: 10104 06/25/2013 ASSAY OF FREE THYROXINE CPT-4: 04646 06/25/2013 ASSAY THYROID STIM HORMONE CPT-4: 91306 06/25/2013 COMPREHEN METABOLIC PANEL CPT-4: 98887 06/25/2013 COMPLETE CBC W/AUTO DIFF WBC CPT-4: 47420 06/25/2013 LIPID PANEL CPT-4: 85524 06/25/2013 A1C GLYCOSYLATED HEMOGLOBIN TEST CPT-4: 89906 013 ROUTINE VENIPUNCTURE CPT-4: 70673 04/09/2013 COMPLETE CBC W/AUTO DIFF WBC CPT-4: 44079 04/09/2013 MYCOPLASMA ANTIBODY, IFA CPT-4: 46125V3 04/09/2013 ROUTINE VENIPUNCTURE CPT-4: 78598 02/11/2013 ASSAY OF FREE THYROXINE CPT-4: 31163 02/11/2013 ASSAY THYROID STIM HORMONE CPT-4: 01820 02/11/2013 COMPREHEN METABOLIC PANEL CPT-4: 71274 02/11/2013 COMPLETE CBC W/AUTO DIFF WBC CPT-4: 10709 02/11/2013 VITAMIN B 12 FOLIC ACID CPT-4: 38496|01241 02/11/2013 C-REACTIVE PROTEIN CPT-4: 60978 02/11/2013 A1C GLYCOSYLATED HEMOGLOBIN TEST CPT-4: 27007 013 ASSAY OF BLOOD/URIC ACID CPT-4: 34095 02/11/2013 CEFTRIAXONE SODIUM INJECTION CPT-4: J0696 01/31/2013 THER/PROPH/DIAG INJ SC/IM CPT-4: 62502 01/31/2013 THER/PROPH/DIAG INJ SC/IM CPT-4: 07277 01/31/2013 METHYLPREDNISOLONE 40 MG INJ CPT-4: J1030 01/31/2013 TRIAMCINOLONE ACET INJ NOS CPT-4: J3301 01/31/2013 ROUTINE VENIPUNCTURE CPT-4: 42174 09/19/2012 COMPREHEN METABOLIC PANEL CPT-4: 37808 09/19/2012 LIPID PANEL CPT-4: [id number] 09/19/2012 A1C GLYCOSYLATED HEMOGLOBIN TEST CPT-4: 39342 012 PNEUMOCOCCAL VACC 23 OLIVIA IM CPT-4: 05927 07/10/2012 FLUZONE, 5ML (Medicare) CPT-4: Q2038 07/10/2012 ADMIN INFLUENZA VIRUS VAC CPT-4: G0008 07/10/2012 ADMIN PNEUMOCOCCAL VACCINE CPT-4: G0009 07/10/2012 ROUTINE VENIPUNCTURE CPT-4: 34196 05/06/2012 ASSAY OF FREE THYROXINE CPT-4: 29624 05/06/2012 ASSAY THYROID STIM HORMONE CPT-4: 31384 05/06/2012 COMPREHEN METABOLIC PANEL CPT-4: 29855 05/06/2012 COMPLETE CBC W/AUTO DIFF WBC CPT-4: 96728 05/06/2012 LIPID PANEL CPT-4: 97948 05/06/2012 A1C GLYCOSYLATED HEMOGLOBIN TEST CPT-4: 67459 012 IMMUNIZATION ADMIN CPT-4: 89579 02/05/2012 FLUZONE, 5ML (Medicare) CPT-4: Q2038 08/10/2011 ADMIN INFLUENZA VIRUS VAC CPT-4: G0008 08/10/2011 ROUTINE VENIPUNCTURE CPT-4: 42260 07/26/2011 ASSAY OF FREE THYROXINE CPT-4: 84895 07/26/2011 ASSAY THYROID STIM HORMONE CPT-4: 71491 07/26/2011 COMPREHEN METABOLIC PANEL CPT-4: 70959 07/26/2011 COMPLETE CBC W/AUTO DIFF WBC CPT-4: 67112 07/26/2011 LIPID PANEL CPT-4: 83860 07/26/2011 A1C GLYCOSYLATED HEMOGLOBIN TEST CPT-4: 37567 011 ASSAY OF PSA TOTAL CPT-4: 25098 07/26/2011 ROUTINE VENIPUNCTURE CPT-4: 05470 01/19/2011 ASSAY OF NATRIURETIC PEPTIDE CPT-4: 94716 01/19/2011 THER/PROPH/DIAG INJ SC/IM CPT-4: 20490 01/19/2011 CEFTRIAXONE SODIUM INJECTION CPT-4: J0696 01/19/2011 METHYLPREDNISOLONE INJECTION CPT-4: J2930 01/19/2011 THER/PROPH/DIAG INJ SC/IM CPT-4: 81551 01/19/2011 THER/PROPH/DIAG INJ SC/IM CPT-4: 74788 01/18/2011 CEFTRIAXONE SODIUM INJECTION CPT-4: J0696 01/18/2011 METHYLPREDNISOLONE INJECTION CPT-4: J2930 01/18/2011 THER/PROPH/DIAG INJ SC/IM CPT-4: 18114 01/18/2011 THER/PROPH/DIAG INJ SC/IM CPT-4: 22242 12/21/2010 TESTOSTERONE CYPIONAT 100 MG CPT-4: J1070 12/21/2010 ROUTINE VENIPUNCTURE CPT-4: 37863 12/19/2010 TESTOSTERONE TOTAL - MALE CPT-4: 29623 12/19/2010 ROUTINE VENIPUNCTURE CPT-4: 97553 12/07/2010 COMPLETE CBC W/AUTO DIFF WBC CPT-4: 25386 12/07/2010 COMPREHEN METABOLIC PANEL CPT-4: 79924 12/07/2010 LIPID PANEL CPT-4: 95128 12/07/2010 A1C GLYCOSYLATED HEMOGLOBIN TEST CPT-4: 19108 011 ASSAY OF PSA TOTAL CPT-4: 24128 12/07/2010 ROUTINE VENIPUNCTURE CPT-4: 89950 04/05/2010 PRESCRIP TRANSMIT VIA ERX SY CPT-4: G8553 04/05/2010 ROUTINE VENIPUNCTURE CPT-4: 63051 01/13/2010 METHYLPREDNISOLONE INJECTION CPT-4: J2930 12/22/2009 THER/PROPH/DIAG INJ SC/IM CPT-4: 48948 12/22/2009 THER/PROPH/DIAG INJ SC/IM CPT-4: 80494 12/22/2009 CEFTRIAXONE SODIUM INJECTION CPT-4: J0696 12/22/2009 ROUTINE VENIPUNCTURE CPT-4: 85432 12/22/2009 COMPLETE CBC W/AUTO DIFF WBC CPT-4: 92058 12/22/2009 RBC SED RATE, AUTOMATED CPT-4: 73778 12/22/2009 RPR FE/E/EN/L/M 20.1-30.0 CM CPT-4: 08925 12/22/2009 EKG FOR INITIAL PREVENT EXAM CPT-4: G0403 12/22/2009 THER/PROPH/DIAG INJ SC/IM CPT-4: 37309 12/16/2009 KETOROLAC TROMETHAMINE INJ CPT-4: J1885 12/16/2009 [...] 1: 126/68 Code: 8480-6 BMI: 30.2 Code: 91449-1 Heart Rate 1: 92 bpm Height: 6' Respiratory Rate: 22 bpm SpO2: 94% Tempera ture: 36.9 (C) / 98.5 (F) Weight: 223 lbs 08/21/2018 Blood Pressure 1: 160/70 Code: 8480-6 Heart Rate 1: 79 bpm Respiratory Rate: 20 bpm SpO2: 94% Temperature: 36.7 (C) / 98.0 (F) We ight: 226 lbs 8 oz 08/07/2018 Blood Pressure 1: 138/70 Code: 8480-6 BMI: 30.1 Code: 50646-9 Heart Rate 1: 80 bpm Height: 6' Respiratory Rate: 20 bpm SpO2: 94% Tempera ture: 36.9 (C) / 98.5 (F) Weight: 222 lbs 05/23/2018 Blood Pressure 1: 148/66 Code: 8480-6 BMI: 30.0 Code: 56879-8 Heart Rate 1: 96 bpm Height: 6' Respiratory Rate: 22 bpm SpO2: 94% Tempera ture: 37.3 (C) / 99.1 (F) Weight: 221 lbs 05/02/2018 Blood Pressure 1: 146/78 Code: 8480-6 BMI: 29.6 Code: 29484-5 Heart Rate 1: 78 bpm Height: 6' Respiratory Rate: 26 bpm SpO2: 94% Tempera ture: 35.7 (C) / 96.2 (F) Weight: 218 lbs 04/29/2018 Blood Pressure 1: 142/62 Code: 8480-6 BMI: 28.6 Code: 47530-3 Heart Rate 1: 82 bpm Height: 6' Respiratory Rate: 22 bpm SpO2: 98% Tempera ture: 36.4 (C) / 97.6 (F) Weight: 211 lbs 04/22/2018 Blood Pressure 1: 126/64 Code: 8480-6 BMI: 30.0 Code: 51132-8 Heart Rate 1: 96 bpm Height: 6' [...] 1: 144/78 Code: 8480-6 BMI: 30.7 Code: 23280-3 Heart Rate 1: 92 bpm Height: 6' Respiratory Rate: 28 bpm SpO2: 94% Tempera ture: 36.9 (C) / 98.4 (F) Weight: 226 lbs 12/28/2017 Blood Pressure 1: 136/80 Code: 8480-6 Heart Rate 1: 92 bpm Respiratory Rate: 28 bpm SpO2: 94% Temperature: 36.7 (C) / 98.1 (F) 12/21/2017 Blood Pressure 1: 146/84 Code: 8480-6 BMI: 31.1 Code: 96363-2 Heart Rate 1: 84 bpm Height: 6' [...] 1: 142/64 Code: 8480-6 BMI: 31.3 Code: 53219-1 Heart Rate 1: 98 bpm Height: 6' Respiratory Rate: 24 bpm SpO2: 94% Tempera ture: 36.4 (C) / 97.6 (F) Weight: 231 lbs 10/17/2017 Blood Pressure 1: 140/68 Code: 8480-6 BMI: 31.7 Code: 56748-0 Heart Rate 1: 88 bpm Height: 6' Respiratory Rate: 20 bpm SpO2: 94% Tempera ture: 36.8 (C) / 98.3 (F) Weight: 234 lbs 08/02/2017 Blood Pressure 1: 142/80 Code: 8480-6 BMI: 31.1 Code: 78050-8 Heart Rate 1: 86 bpm Height: 6' Respiratory Rate: 20 bpm SpO2: 90% Tempera ture: 35.9 (C) / 96.7 (F) Weight: 229 lbs 07/02/2017 Blood Pressure 1: 146/64 Code: 8480-6 BMI: 29.6 Code: 15040-8 Heart Rate 1: 96 bpm Height: 6' Respiratory Rate: 20 bpm Temperature: 36 .4 (C) / 97.6 (F) Weight: 218 lbs 05/29/2017 Blood Pressure 1: 152/68 Code: 8480-6 BMI: 31.5 Code: 44816-7 Heart Rate 1: 100 bpm Height: 6' Respiratory Rate: 20 bpm SpO2: 92% Tempera ture: 36.9 (C) / 98.4 (F) Weight: 232 lbs 02/01/2017 Blood Pressure 1: 146/64 Code: 8480-6 BMI: 30.7 Code: 58511-2 Heart Rate 1: 76 bpm Height: 6' Respiratory Rate: 20 bpm SpO2: 95% Tempera ture: 36.8 (C) / 98.2 (F) Weight: 226 lbs 01/29/2017 Blood Pressure 1: 146/78 Code: 8480-6 Heart Rate 1: 84 bpm Respiratory Rate: 20 bpm SpO2: 96% Temperature: 36.1 (C) / 97.0 (F) We ight: 226 lbs 12/21/2016 Blood Pressure 1: 126/60 Code: 8480-6 BMI: 30.8 Code: 84564-8 Heart Rate 1: 88 bpm Height: 6' Respiratory Rate: 22 bpm SpO2: 94% Tempera ture: 36.7 (C) / 98.0 (F) Weight: 227 lbs 12/14/2016 Blood Pressure 1: 126/70 Code: 8480-6 BMI: 29.8 Code: 63890-7 Heart Rate 1: 92 bpm Height: 6' Respiratory Rate: 22 bpm SpO2: 93% Tempera ture: 36.8 (C) / 98.2 (F) Weight: 220 lbs 11/14/2016 Blood Pressure 1: 128/62 Code: 8480-6 Heart Rate 1: 100 bpm Respiratory Rate: 20 bpm SpO2: 96% Temperature: 36.6 (C) / 97.8 (F) We ight: 220 lbs 10/31/2016 Blood Pressure 1: 142/60 Code: 8480-6 BMI: 30.1 Code: 93822-9 Heart Rate 1: 112 bpm Height: 6' Respiratory Rate: 24 bpm SpO2: 93% Tempera ture: 37.1 (C) / 98.7 (F) Weight: 222 lbs 10/03/2016 Blood Pressure 1: 136/78 Code: 8480-6 Heart Rate 1: 106 bpm Respiratory Rate: 24 bpm SpO2: 93% Temperature: 36.6 (C) / 97.8 (F) We ight: 221 lbs 09/04/2016 Blood Pressure 1: 112/44 Code: 8480-6 BMI: 30.1 Code: 74261-3 Heart Rate 1: 90 bpm Height: 6' Respiratory Rate: 20 bpm SpO2: 93% Tempera ture: 36.6 (C) / 97.9 (F) Weight: 222 lbs 08/22/2016 Blood Pressure 1: 142/68 Code: 8480-6 BMI: 30.4 Code: 78319-1 Heart Rate 1: 100 bpm Height: 6' Respiratory Rate: 24 bpm SpO2: 93% Tempera ture: 36.7 (C) / 98.1 (F) Weight: 224 lbs 08/10/2016 Blood Pressure 1: 134/60 Code: 8480-6 BMI: 30.2 Code: 77022-3 Heart Rate 1: 76 bpm Height: 6' [...] 1: 122/72 Code: 8480-6 BMI: 30.7 Code: 18745-5 Heart Rate 1: 96 bpm Height: 6' Respiratory Rate: 22 bpm SpO2: 96% Tempera ture: 35.9 (C) / 96.7 (F) Weight: 226 lbs 04/03/2016 Blood Pressure 1: 146/64 Code: 8480-6 BMI: 30.8 Code: 35033-3 Heart Rate 1: 76 bpm Height: 6' Respiratory Rate: 20 bpm Temperature: 36 .8 (C) / 98.2 (F) Weight: 227 lbs 03/02/2016 Blood Pressure 1: 148/60 Code: 8480-6 BMI: 31.1 Code: 87995-1 Heart Rate 1: 80 bpm Height: 6' Respiratory Rate: 22 bpm SpO2: 94% Tempera ture: 36.6 (C) / 97.8 (F) Weight: 229 lbs 02/17/2016 Blood Pressure 1: 132/60 Code: 8480-6 BMI: 31.3 Code: 09371-6 Heart Rate 1: 80 bpm Height: 6' Respiratory Rate: 20 bpm Temperature: 36 .9 (C) / 98.4 (F) Weight: 231 lbs 02/14/2016 Blood Pressure 1: 126/70 Code: 8480-6 BMI: 31.3 Code: 20636-8 Heart Rate 1: 80 bpm Height: 6' Respiratory Rate: 24 bpm SpO2: 95% Tempera ture: 36.9 (C) / 98.5 (F) Weight: 231 lbs 01/31/2016 Blood Pressure 1: 136/60 Code: 8480-6 Heart Rate 1: 76 bpm Respiratory Rate: 22 bpm Temperature: 37.0 (C) / 98.6 (F) Weight: 230 lbs 12/30/2015 Blood Pressure 1: 128/58 Code: 8480-6 BMI: 31.2 Code: 24621-3 Heart Rate 1: 80 bpm Height: 6' Respiratory Rate: 20 bpm Temperature: 36 .8 (C) / 98.2 (F) Weight: 230 lbs 12/16/2015 Blood Pressure 1: 122/60 Code: 8480-6 BMI: 32.0 Code: 46526-5 Heart Rate 1: 84 bpm Height: 6' Respiratory Rate: 24 bpm Temperature: 37 .1 (C) / 98.7 (F) Weight: 236 lbs 12/06/2015 Blood Pressure 1: 162/74 Code: 8480-6 BMI: 32.5 Code: 80344-9 Heart Rate 1: 90 bpm Height: 6' Respiratory Rate: 20 bpm SpO2: 96% Tempera ture: 36.4 (C) / 97.6 (F) Weight: 240 lbs 11/15/2015 Blood Pressure 1: 166/80 Code: 8480-6 BMI: 32.4 Code: 59325-8 Heart Rate 1: 92 bpm Height: 6' Respiratory Rate: 28 bpm Temperature: 36 .5 (C) / 97.7 (F) Weight: 239 lbs 10/05/2015 Blood Pressure 1: 146/76 Code: 8480-6 BMI: 32.4 Code: 90271-7 Heart Rate 1: 88 bpm Height: 6' Respiratory Rate: 28 bpm Temperature: 37 .1 (C) / 98.7 (F) Weight: 239 lbs 07/22/2015 Blood Pressure 1: 144/68 Code: 8480-6 BMI: 31.9 Code: 91180-0 Heart Rate 1: 88 bpm Height: 6' [...] 1: 142/64 Code: 8480-6 BMI: 32.1 Code: 23185-1 Heart Rate 1: 80 bpm Height: 6' Respiratory Rate: 18 bpm Temperature: 36 .4 (C) / 97.6 (F) Weight: 237 lbs 06/07/2015 Blood Pressure 1: 164/58 Code: 8480-6 BMI: 32.1 Code: 05362-3 Heart Rate 1: 88 bpm Height: 6' Respiratory Rate: 20 bpm Temperature: 36 .6 (C) / 97.9 (F) Weight: 237 lbs 06/03/2015 Blood Pressure 1: 152/64 Code: 8480-6 BMI: 32.1 Code: 45734-1 Heart Rate 1: 96 bpm Height: 6' Respiratory Rate: 20 bpm Temperature: 37 .4 (C) / 99.3 (F) Weight: 237 lbs 06/01/2015 Blood Pressure 1: 136/70 Code: 8480-6 BMI: 31.7 Code: 59723-4 Heart Rate 1: 72 bpm Height: 6' Respiratory Rate: 22 bpm SpO2: 94% Tempera ture: 36.6 (C) / 97.9 (F) Weight: 234 lbs 02/25/2015 Blood Pressure 1: 146/80 Code: 8480-6 BMI: 32.4 Code: 88559-9 Heart Rate 1: 84 bpm Height: 6' Respiratory Rate: 28 bpm Temperature: 36 .7 (C) / 98.0 (F) Weight: 239 lbs 10/27/2014 Blood Pressure 1: 168/70 Code: 8480-6 BMI: 32.0 Code: 26673-8 Heart Rate 1: 80 bpm Height: 6' Respiratory Rate: 30 bpm SpO2: 98% Tempera ture: 36.4 (C) / 97.6 (F) Weight: 236 lbs 10/21/2014 Blood Pressure 1: 152/58 Code: 8480-6 BMI: 32.1 Code: 94624-2 Heart Rate 1: 78 bpm Height: 6' Respiratory Rate: 20 bpm Temperature: 37 .8 (C) / 100.1 (F) Weight: 237 lbs 10/06/2014 Blood Pressure 1: 132/64 Code: 8480-6 BMI: 32.5 Code: 76721-8 Heart Rate 1: 88 bpm Height: 6' Respiratory Rate: 32 bpm SpO2: 94% Tempera ture: 36.8 (C) / 98.2 (F) Weight: 240 lbs 09/21/2014 Blood Pressure 1: 134/68 Code: 8480-6 BMI: 32.4 Code: 33093-1 Heart Rate 1: 96 bpm Height: 6' Respiratory Rate: 30 bpm Temperature: 36 .7 (C) / 98.1 (F) Weight: 239 lbs 09/08/2014 Blood Pressure 1: 128/74 Code: 8480-6 BMI: 32.4 Code: 60514-8 Heart Rate 1: 82 bpm Height: 6' Respiratory Rate: 28 bpm SpO2: 93% Tempera ture: 36.6 (C) / 97.8 (F) Weight: 239 lbs 09/02/2014 Blood Pressure 1: 164/78 Code: 8480-6 Heart Rate 1: 86 bpm Respiratory Rate: 22 bpm SpO2: 96% Temperature: 36.1 (C) / 97.0 (F) We ight: 239 lbs 08/10/2014 Blood Pressure 1: 152/60 Code: 8480-6 BMI: 32.8 Code: 78970-0 Heart Rate 1: 80 bpm Height: 6' [...] 1: 146/80 Code: 8480-6 BMI: 33.9 Code: 18517-2 Heart Rate 1: 80 bpm Height: 6' [...] 1: 148/78 Code: 8480-6 BMI: 30.5 Code: 16998-1 Heart Rate 1: 84 bpm Height: 6' Respiratory Rate: 28 bpm SpO2: 97% Tempera ture: 36.4 (C) / 97.5 (F) Weight: 225 lbs 08/06/2013 Blood Pressure 1: 158/70 Code: 8480-6 Heart Rate 1: 110 bpm Respiratory Rate: 22 bpm SpO2: 88% Temperature: 39.7 (C) / 103.4 (F) W eight: 07/16/2013 Blood Pressure 1: 148/82 Code: 8480-6 BMI: 31.9 Code: 77061-6 Heart Rate 1: 80 bpm Height: 6' Respiratory Rate: 20 bpm Temperature: 36 .6 (C) / 97.9 (F) Weight: 235 lbs 04/09/2013 Blood Pressure 1: 142/78 Code: 8480-6 BMI: 31.5 Code: 87987-2 Heart Rate 1: 88 bpm Height: 6' Respiratory Rate: 32 bpm SpO2: 95% Tempera ture: 37.0 (C) / 98.6 (F) Weight: 232 lbs 02/11/2013 Blood Pressure 1: 146/70 Code: 8480-6 Heart Rate 1: 88 bpm Respiratory Rate: 20 bpm Temperature: 36.8 (C) / 98.3 (F) Weight: 230 lbs 01/31/2013 Blood Pressure 1: 128/70 Code: 8480-6 BMI: 31.6 Code: 79540-2 Heart Rate 1: 84 bpm Height: 6' Respiratory Rate: 24 bpm SpO2: 92% Tempera ture: 36.7 (C) / 98.0 (F) Weight: 233 lbs 01/20/2013 Blood Pressure 1: 148/64 Code: 8480-6 BMI: 31.6 Code: 62310-4 Heart Rate 1: 68 bpm Height: 6' Temperature: 36.1 (C) / 97.0 (F) Weight: 233 lbs 12/19/2012 Blood Pressure 1: 128/68 Code: 8480-6 BMI: 32.0 Code: 95950-4 Heart Rate 1: 64 bpm Height: 6' Temperature: 36.7 (C) / 98.0 (F) Weight: 236 lbs 10/21/2012 Blood Pressure 1: 142/64 Code: 8480-6 BMI: 30.9 Code: 37733-3 Heart Rate 1: 74 bpm Height: 6' Temperature: 36.2 (C) / 97.1 (F) Weight: 228 lbs 09/18/2012 Blood Pressure 1: 126/60 Code: 8480-6 BMI: 31.3 Code: 47535-0 Heart Rate 1: 88 bpm Height: 6' Respiratory Rate: 20 bpm Temperature: 36 .5 (C) / 97.7 (F) Weight: 231 lbs 08/28/2012 Blood Pressure 1: 132/68 Code: 8480-6 BMI: 31.5 Code: 41011-7 Heart Rate 1: 92 bpm Height: 6' Respiratory Rate: 30 bpm SpO2: 94% Tempera ture: 37.1 (C) / 98.7 (F) Weight: 232 lbs 07/10/2012 Blood Pressure 1: 118/70 Code: 8480-6 BMI: 30.5 Code: 16467-6 Heart Rate 1: 72 bpm Height: 6' Respiratory Rate: 24 bpm SpO2: 96% Tempera ture: 36.7 (C) / 98.0 (F) Weight: 225 lbs 05/09/2012 Blood Pressure 1: 124/68 Code: 8480-6 BMI: 29.8 Code: 23136-4 Heart Rate 1: 72 bpm Height: 6' Respiratory Rate: 20 bpm Temperature: 36 .8 (C) / 98.2 (F) Weight: 220 lbs 10/02/2011 Blood Pressure 1: 140/82 Code: 8480-6 BMI: 30.7 Code: 37534-5 Heart Rate 1: 68 bpm Height: 6' Temperature: 36.7 (C) / 98.0 (F) Weight: 226 lbs 08/07/2011 Blood Pressure 1: 122/68 Code: 8480-6 BMI: 30.5 Code: 11613-7 Heart Rate 1: 72 bpm Height: 6' [...] 1: 140/78 Code: 8480-6 BMI: 31.9 Code: 91415-9 Heart Rate 1: 84 bpm Height: 6' Temperature: 36.6 (C) / 97.8 (F) Weight: 235 lbs 12/22/2009 Blood Pressure 1: 140/74 Code: 8480-6 BMI: 31.9 Code: 68691-2 Heart Rate 1: 94 bpm Height: 6' SpO2: 92% Temperature: 35.7 (C) / 96.2 (F) Weight: 235 lbs 12/13/2009 Blood Pressure 1: 146/80 Code: 8480-6 BMI: 33.0 Code: 31951-4 Heart Rate 1: 86 bpm Height: 6' [...] shot follow up 05/08/2019 follow up 04/07/2019 [facility] dizziness 03/24/2019 dizziness 03/21/2019 sore throat 03/13/2019 Patient finished zit hromax last night and has one dose of prednisone left follow up 03/10/2019 ER [facility]---patient cu rrently taking zithromax, prednisone and breathing treatments every two hours spasms/spasticity 02/26/2019 follow up 02/13/2019 follow up 01/14/2019 [facility] follow up 12/25/2018 cough 12/09/2018 here [...] reports he was going to 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 follow up 05/29/2017 Discuss Low Back [...] nightly. Patient has just been discharged from [place] with Pneumonia. Currently on Levaquin once daily. [...] fwup follow up 03/13/2016 Patient here for 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] Diagnosis: FLU VACCINE[ICD10: Z23] Lita CRAWFORD [employer] CPT-4: 84028 08/07/2019 ([id number]) OFFICE/OUTPATIENT VISIT EST Diagnosis: Chronic obstructive pulmonary disease with (acute) exacerbation[ICD10: J44.1] Autumn Oneil LITA [employer] CPT- 4: 39197 07/14/2019 ([id number]) OFFICE/OUTPATIENT VISIT EST Diagnosis: Primary insomnia[ICD10: F51.01] Diagnosis: Dyspepsia and other specified disorders of function of stomach[ICD10: K31.89] Lita BARAKAT DO [facility] CPT-4: 34343 07/01/2019 ([id number]) OFFICE/OUTPATIENT VISIT EST Diagnosis: Epigastric pain[ICD10: R10.13] Diagnosis: Nausea[ICD10: R11.0] Diagnosis: Weight loss[ICD10: R63.4] Lita AREVALO DO [facility] CPT-4: 88731 06/24/2019 ([id number]) OFFICE/OUTPATIENT VISIT EST Diagnosis: Chronic obstructive pulmonary disease, unspecified[ICD10: J44.9] Diagnosis: Chronic insomnia[ICD10: F51.04] Diagnosis: Anemia[ICD10: D64.9] Diagnosis: Diplopia[ICD10: H53.2] Diagnosis: [place][ICD10: F30.9] Lita BARAKAT DO [facility] CPT-4: 45635 06/17/2019 ([id number]) NURSE/OUTPATIENT VISIT EST Diagnosis: Vitamin B12 deficiency anemia, unspecified[ICD10: D51.9] Lita BARAKAT DO [facility] CPT-4: 04421 06/10/2019 ([id number]) NURSE/OUTPATIENT VISIT EST Diagnosis: Vitamin B12 deficiency anemia, unspecified[ICD10: D51.9] Lita BARAKAT DO [facility] CPT-4: 82286 06/02/2019 ([id number]) NURSE/OUTPATIENT VISIT EST Diagnosis: Vitamin B12 deficiency anemia, unspecified[ICD10: D51.9] Lita BARAKAT DO [facility] CPT-4: 73418 05/27/2019 ([id number]) NURSE/OUTPATIENT VISIT EST Diagnosis: Vitamin B12 deficiency anemia, unspecified[ICD10: D51.9] Lita BARAKAT DO [facility] CPT-4: 42286 05/12/2019 ([id number]) OFFICE/OUTPATIENT VISIT EST Diagnosis: Restless legs syndrome[ICD10: G25.81] Diagnosis: Primary insomnia[ICD10: F51.01] Diagnosis: Anemia, unspecified[ICD10: D64.9] Diagnosis: Type 2 diabetes mellitus with hyperglycemia[ICD10: E11.65] Diagnosis: Vitamin D deficiency, unspecified[ICD10: E55.9] Lita BARAKAT DO [facility] CPT-4: 66805 05/08/2019 ([id number]) OFFICE/OUTPATIENT VISIT EST Diagnosis: Pain in right knee[ICD10: M25.561] Diagnosis: Restless legs syndrome[ICD10: G25.81] Diagnosis: Insomnia, unspecified[ICD10: G47.00] Lita BARAKAT DO [facility] CPT-4: 56910 04/07/2019 ([id number]) NO CHARGE Diagnosis: Chronic obstructive pulmonary disease with (acute) exacerbation[ICD10: J44.1] Diagnosis: Dizziness and giddiness[ICD10: R42] Diagnosis: Generalized anxiety disorder[ICD10: F41.1] Autumn BARAKAT DO [facility] CPT-4: 39132 03/24/2019 ([id number]) OFFICE/OUTPATIENT VISIT EST Diagnosis: Chronic obstructive pulmonary disease with (acute) exacerbation[ICD10: J44.1] Diagnosis: Dizziness and giddiness[ICD10: R42] Autumn BARAKAT [employer] [facility] CPT-4: 18121 03/21/2019 ([id number]) OFFICE/OUTPATIENT VISIT EST Diagnosis: Candidal stomatitis[ICD10: B37.0] Lita BARAKAT [employer] [facility] CPT-4: 77420 03/13/2019 ([id number]) OFFICE/OUTPATIENT VISIT EST Diagnosis: Chronic obstructive pulmonary disease with acute lower respiratory infection[ICD10: J44.0] Diagnosis: Restless legs syndrome[ICD10: G25.81] Lita BARAKAT [employer] [facility] CPT-4: 09040 03/10/2019 ([id number]) OFFICE/OUTPATIENT VISIT EST Diagnosis: Restless legs syndrome[ICD10: G25.81] Lita BARAKAT DO [facility] CPT-4: 56517 02/26/2019 ([id number]) OFFICE/OUTPATIENT VISIT EST Diagnosis: Primary insomnia[ICD10: F51.01] Diagnosis: Chronic obstructive pulmonary disease, unspecified[ICD10: J44.9] Lita BARAKAT DO [facility] CPT-4: 30245 02/13/2019 ([id number]) OFFICE/OUTPATIENT VISIT EST Diagnosis: Chronic obstructive pulmonary disease, unspecified[ICD10: J44.9] Diagnosis: Chronic respiratory failure with hypoxia[ICD10: J96.11] Diagnosis: Chronic respiratory failure with hypercapnia[ICD10: J96.12] Lita BARAKAT DO [facility] CPT-4: 75524 01/14/2019 ([id number]) OFFICE/OUTPATIENT VISIT EST Diagnosis: Chronic respiratory failure with hypoxia[ICD10: J96.11] Diagnosis: Patient's noncompliance with other medical treatment and regimen[ICD10: Z91.19] Diagnosis: Chronic obstructive pulmonary disease with (acute) exacerbation[ICD10: J44.1] Lita BARAKAT [employer] [facility] CPT- 4: 55269 12/25/2018 ([id number]) OFFICE/OUTPATIENT VISIT EST Diagnosis: Essential (primary) hypertension[ICD10: I10] Diagnosis: Type 2 diabetes mellitus with hyperglycemia[ICD10: E11.65] Diagnosis: Hypothyroidism, unspecified[ICD10: E03.9] Diagnosis: Hyperlipidemia, unspecified[ICD10: E78.5] Diagnosis: Acute recurrent maxillary sinusitis[ICD10: J01.01] Ines Banerjee LITA BARAKAT [employer] [facility] CPT-4: 93021 12/09/2018 ([id number]) OFFICE/OUTPATIENT VISIT EST Diagnosis: Candidal stomatitis[ICD10: B37.0] Lita ALYOSCAR Segura Ashley BARAKAT [employer] [facility] CPT-4: 44871 12/05/2018 ([id number]) OFFICE/OUTPATIENT VISIT EST Diagnosis: Acute recurrent sinusitis, unspecified[ICD10: J01.91] Diagnosis: Pain in right knee[ICD10: M25.561] Lita Barakat KEVIN GONZALES Ashley BARAKAT [employer] [facility] CPT-4: 37055 10/23/2018 ([id number]) OFFICE/OUTPATIENT VISIT EST Diagnosis: Restless legs syndrome[ICD10: G25.81] Diagnosis: Basal cell carcinoma of skin of scalp and neck[ICD10: C44.41] Lita BARAKAT DO [facility] CPT-4: 62268 08/21/2018 ([id number]) OFFICE/OUTPATIENT VISIT EST Diagnosis: Chronic obstructive pulmonary disease with acute lower respiratory infection[ICD10: J44.0] Diagnosis: Restless legs syndrome[ICD10: G25.81] Lita BARAKAT DO [facility] CPT-4: 64830 08/07/2018 ([id number]) OFFICE/OUTPATIENT VISIT EST Diagnosis: Chronic obstructive pulmonary disease with acute lower respiratory infection[ICD10: J44.0] Lita BARAKAT DO [facility] CPT-4: 90546 05/23/2018 ([id number]) OFFICE/OUTPATIENT VISIT EST Diagnosis: Candidal stomatitis[ICD10: B37.0] Lita BARAKAT DO [facility] CPT-4: 46581 05/02/2018 ([id number]) OFFICE/OUTPATIENT VISIT EST Diagnosis: Candidal stomatitis[ICD10: B37.0] Diagnosis: Other retention of urine[ICD10: R33.8] Diagnosis: Chronic obstructive pulmonary disease with acute lower respiratory infection[ICD10: J44.0] Autumn BARAKAT DO [facility] CPT-4: 32127 04/29/2018 ([id number]) OFFICE/OUTPATIENT VISIT EST Diagnosis: Chronic obstructive pulmonary disease with acute lower respiratory infection[ICD10: J44.0] Lita BARAKAT DO [facility] CPT-4: 41377 04/22/2018 ([id number]) OFFICE/OUTPATIENT VISIT EST Diagnosis: Unilateral primary osteoarthritis, right knee[ICD10: M17.11] Diagnosis: Squamous cell carcinoma of skin, unspecified[ICD10: C44.92] Lita BARAKAT DO [facility] CPT-4: 52243 01/28/2018 ([id number]) OFFICE/OUTPATIENT VISIT EST Diagnosis: Pain in right knee[ICD10: M25.561] Diagnosis: 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] Lita BARAKAT DO [facility] CPT-4: 56036 01/23/2018 ([id number]) OFFICE/OUTPATIENT VISIT EST Diagnosis: Urinary tract infection, site not specified[ICD10: N39.0] Diagnosis: Chronic obstructive pulmonary disease with acute lower respiratory infection[ICD10: J44.0] Lita BARAKAT DO [facility] CPT-4: 78901 01/02/2018 ([id number]) OFFICE/OUTPATIENT VISIT EST Diagnosis: Chronic obstructive pulmonary disease with (acute) exacerbation[ICD10: J44.1] Autumn BARAKAT DO [facility] CPT- 4: 84139 12/28/2017 ([id number]) OFFICE/OUTPATIENT VISIT EST Diagnosis: Acute bronchitis, unspecified[ICD10: J20.9] Autumn BARAKAT DO [facility] CPT-4: 99873 12/21/2017 ([id number]) OFFICE/OUTPATIENT VISIT EST Diagnosis: Chronic obstructive pulmonary disease with acute lower respiratory infection[ICD10: J44.0] Diagnosis: Pain in right knee[ICD10: M25.561] Autumn BARAKAT DO [facility] CPT-4: 61248 12/17/2017 ([id number]) OFFICE/OUTPATIENT VISIT EST Diagnosis: Laceration without foreign body of right hand, sequela[ICD10: S61.411S] Diagnosis: Restless legs syndrome[ICD10: G25.81] Lita BARAKAT DO [facility] CPT-4: 11305 10/17/2017 OFFICE/OUTPATIENT VISIT EST Diagnosis: Chronic obstructive pulmonary disease with acute lower respiratory infection[ICD10: J44.0] Autumn BARAKAT DO [facility] CPT-4: 27531 08/02/2017 ([id number]) OFFICE/OUTPATIENT VISIT EST Diagnosis: PNEUMOCOCCAL VACCINE[ICD10: Z23] Lita BARAKAT DO [facility] CPT-4: 89003 07/24/2017 OFFICE/OUTPATIENT VISIT EST Diagnosis: Chronic obstructive pulmonary disease with (acute) exacerbation[ICD10: J44.1] Autumn [facility]AKAT [facility] [facility] CPT- 4: 31806 07/02/2017 OFFICE/OUTPATIENT VISIT EST Diagnosis: Low back pain[ICD10: M54.5] Ruchi GHOTRA [facility] CPT-4: 64779 05/29/2017 ([id number]) OFFICE/OUTPATIENT VISIT EST Diagnosis: Essential (primary) hypertension[ICD10: I10] Diagnosis: Hypothyroidism, unspecified[ICD10: E03.9] Diagnosis: Dizziness and giddiness[ICD10: R42] Diagnosis: Other abnormality of red blood cells[ICD10: R71.8] Diagnosis: Contracture of muscle, unspecified site[ICD10: M62.40] Lita ALYLINE Ashley BARAKAT [facility] CPT-4: 22865 04/17/2017 OFFICE/OUTPATIENT VISIT EST Diagnosis: Pain in left shoulder[ICD10: M25.512] Ruchi AGNE DonovanFerdinand GASPER [facility] CPT-4: 67408 01/29/2017 ([id number]) OFFICE/OUTPATIENT VISIT EST Diagnosis: Anemia, unspecified[ICD10: D64.9] Lita ALYOSCAR Segura DonovanFerdinand GASPER [facility] CPT-4: 98639 12/27/2016 ([id number]) OFFICE/OUTPATIENT VISIT EST Diagnosis: Other fatigue[ICD10: R53.83] Diagnosis: Other iron deficiency anemias[ICD10: D50.8] Lita ALYLINE DonovanFerdinand GASPER [facility] CPT-4: 42000 12/21/2016 ([id number]) OFFICE/OUTPATIENT VISIT EST Diagnosis: Anemia, unspecified[ICD10: D64.9] Diagnosis: Other fatigue[ICD10: R53.83] Diagnosis: Restless legs syndrome[ICD10: G25.81] Lita AGNE DonovanFerdinand [facility] CPT-4: 00941 12/14/2016 ([id number]) OFFICE/OUTPATIENT VISIT EST Diagnosis: Anemia, unspecified[ICD10: D64.9] Diagnosis: Other abnormality of red blood cells[ICD10: R71.8] Lita Barakat LITA DonovanFerdinand GASPER [facility] CPT-4: 55732 12/12/2016 ([id number]) OFFICE/OUTPATIENT VISIT EST Diagnosis: Pneumonia, unspecified organism[ICD10: J18.9] Diagnosis: Restless legs syndrome[ICD10: G25.81] Magda HERRMANNONIEL MARC Ashley BARAKAT [facility] CPT-4: 98247 11/14/2016 ([id number]) OFFICE/OUTPATIENT VISIT EST Diagnosis: Candidal stomatitis[ICD10: B37.0] Lita GOODE Daja Ashley BARAKAT [facility] CPT-4: 25346 10/31/2016 ([id number]) OFFICE/OUTPATIENT VISIT EST Diagnosis: Acute upper respiratory infection, unspecified[ICD10: J06.9] Diagnosis: Personal history of pneumonia (recurrent)[ICD10: Z87.01] Magda ALYLINE Ashley BARAKAT [facility] CPT-4: 73591 10/03/2016 ([id number]) OFFICE/OUTPATIENT VISIT EST Diagnosis: Restless legs syndrome[ICD10: G25.81] Diagnosis: Insomnia, unspecified[ICD10: G47.00] Magda Toth JERMAIN JESSICA Ashley BARAKAT [facility] CPT-4: 57230 09/04/2016 ([id number]) OFFICE/OUTPATIENT VISIT EST Diagnosis: Restless legs syndrome[ICD10: G25.81] Diagnosis: Primary insomnia[ICD10: F51.01] Lita ALYLINE Ashley BARAKAT [facility] CPT-4: 71526 08/10/2016 OFFICE/OUTPATIENT VISIT EST Diagnosis: Toxic gastroenteritis and colitis[ICD10: K52.1] Diagnosis: Dizziness and giddiness[ICD10: R42] Diagnosis: Headache[ICD10: R51] Diagnosis: Restless legs syndrome[ICD10: G25.81] Lita Gasper ALIZEONIEL AGNE Ashley BARAKAT [facility] CPT-4: 54144 07/06/2016 ([id number]) OFFICE/OUTPATIENT VISIT EST Diagnosis: Chest pain, unspecified[ICD10: R07.9] Diagnosis: Dyspnea, unspecified[ICD10: R06.00] Magda Toth ELLIS CONDE Ashley BARAKAT [facility] CPT-4: 94685 06/22/2016 ([id number]) OFFICE/OUTPATIENT VISIT EST 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] Diagnosis: PNEUMOCOCCAL VACCINE[ICD10: Z23] Diagnosis: FLU VACCINE[ICD10: Z23] Lita CRAWFORD Ashley FUNEZ [facility] CPT-4: 39655 06/13/2016 ([id number]) OFFICE/OUTPATIENT VISIT EST Diagnosis: Chest pain, unspecified[ICD10: R07.9] Diagnosis: Other forms of dyspnea[ICD10: R06.09] Diagnosis: Shortness of breath[ICD10: R06.02] Diagnosis: Other fatigue[ICD10: R53.83] Magda [facility]LINE [facility]PT-[facility]: 47017 06/01/2016 ([id number]) OFFICE/OUTPATIENT VISIT EST Diagnosis: Unspecified hearing loss, left ear[ICD10: H91.92] Diagnosis: Other specified disorders of Eustachian tube, left ear[ICD10: H69.82] Magda ALYLINE [facility] CPT-[facility]: 51808 11/2015 ([id number]) OFFICE/OUTPATIENT VISIT EST Diagnosis: Impacted cerumen, bilateral[ICD10: H61.23] Diagnosis: DM W/O COMPLICATION TYPE I, 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: E10.9] Diagnosis: Generalized anxiety disorder[ICD10: F41.1] Lita CRAWFORD [facility]erdinand [facility] CPT-[facility]: 92296 04/03/2016 ([id number]) OFFICE/OUTPATIENT VISIT EST Diagnosis: 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] Lita Jasminbetty CRAWFORD [facility] CPT - 4: 45953 03/13/2016 ([id number]) OFFICE/OUTPATIENT VISIT EST Diagnosis: Type 2 diabetes mellitus with hyperglycemia[ICD10: E11.65] Diagnosis: Hyperlipidemia, unspecified[ICD10: E78.5] Diagnosis: Essential (primary) hypertension[ICD10: I10] Diagnosis: Chronic obstructive pulmonary disease, unspecified[ICD10: J44.9] Diagnosis: Testicular hypofunction[ICD10: E29.1] Diagnosis: Male erectile dysfunction, unspecified[ICD10: N52.9] Diagnosis: Anemia, unspecified[ICD10: D64.9] Litajesisca BARAKAT DO [facility] CPT-4: 78798 03/06/2016 ([id number]) OFFICE/OUTPATIENT VISIT EST Diagnosis: Type 2 diabetes mellitus with hyperglycemia[ICD10: E11.65] Diagnosis: Hyperlipidemia, unspecified[ICD10: E78.5] Diagnosis: Chronic obstructive pulmonary disease, unspecified[ICD10: J44.9] Diagnosis: Male erectile dysfunction, unspecified[ICD10: N52.9] Lita BARAKAT DO [facility] CPT-4: 49283 03/02/2016 ([id number]) OFFICE/OUTPATIENT VISIT EST Diagnosis: Pain in right foot[ICD10: M79.671] Magda Toth JERMAINDARLING JANET BARAKAT [facility] CPT-4: 78012 02/14/2016 OFFICE/OUTPATIENT VISIT EST Diagnosis: Generalized anxiety disorder[ICD10: F41.1] Lita BARKAAT DO [facility] CPT-4: 62894 01/31/2016 ([id number]) OFFICE/OUTPATIENT VISIT EST Diagnosis: Generalized anxiety disorder[ICD10: F41.1] Lita BARAKAT DO [facility] CPT-4: 42518 12/30/2015 ([id number]) OFFICE/OUTPATIENT VISIT EST Diagnosis: Localized swelling, mass and lump, neck[ICD10: R22.1] Lita BARAKAT DO [facility] CPT-4: 74716 12/16/2015 OFFICE/OUTPATIENT VISIT EST Diagnosis: Localized enlarged lymph nodes[ICD10: R59.0] Diagnosis: Otalgia, left ear[ICD10: H92.02] Stephanie BARAKAT [facility] CPT-4: 70531 12/06/2015 OFFICE/OUTPATIENT VISIT EST Diagnosis: Localized enlarged lymph nodes[ICD10: R59.0] Diagnosis: Squamous cell carcinoma of skin, unspecified[ICD10: C44.92] Diagnosis: Actinic keratosis[ICD10: L57.0] Stephanie BARAKAT DO [facility] CPT-4: 87340 11/15/2015 OFFICE/OUTPATIENT VISIT EST Diagnosis: Cellulitis of left lower limb[ICD10: L03.116] Diagnosis: Encounter for examination and observation for other specified reasons[ICD10: Z04.8] Diagnosis: Chronic obstructive pulmonary disease, unspecified[ICD10: J44.9] Stephanie BARAKAT [facility] CPT-4: 09699 07/22/2015 OFFICE/OUTPATIENT VISIT EST Diagnosis: Other specified joint disorders, left knee[ICD10: M25.862] Diagnosis: Cellulitis of left lower limb[ICD10: L03.116] Diagnosis: Other fatigue[ICD10: R53.83] Diagnosis: Hyperlipidemia, unspecified[ICD10: E78.5] Stephanie BARAKAT [facility] CPT-4: 69151 07/01/2015 OFFICE/OUTPATIENT VISIT EST Diagnosis: Pain in left knee[ICD10: M25.562] Diagnosis: Cellulitis of left lower limb[ICD10: L03.116] Diagnosis: Other specified joint disorders, left knee[ICD10: M25.862] Stephanie ManFerdinand [facility] CPT-4: 27666 06/28/2015 OFFICE/OUTPATIENT VISIT EST Diagnosis: PREPATELLAR BURSITIS[ICD9: 726.65] Diagnosis: Cellulitis of knee, left[ICD9: 682.6] Stephanie EspinozaAshleyisabella ManFerdinand GASPER [facility] CPT-4: 52043 06/09/2015 ([id number]) OFFICE/OUTPATIENT VISIT EST Diagnosis: PREPATELLAR BURSITIS[ICD9: 726.65] Diagnosis: Cellulitis of knee, left[ICD9: 682.6] Lita Gasper ALIZEONIEL AGNE DonovanFerdinand GASPER [facility] CPT-4: 74608 06/07/2015 OFFICE/OUTPATIENT VISIT EST Diagnosis: Cellulitis of knee, left[ICD9: 682.6] Stephanie EspinozaAshleyisabella ManFerdinand [facility] CPT-4: 10914 06/03/2015 ([id number]) OFFICE/OUTPATIENT VISIT EST Diagnosis: DM W/O COMPLICATION TYPE II, UNCONTROLLED[ICD9: 250.02] Diagnosis: COPD[ICD9: 496] Lita Jasminbetty LITA DonovanFerdinand GASPER [facility] CPT- 4: 62472 06/01/2015 ([id number]) OFFICE/OUTPATIENT VISIT EST Diagnosis: COPD[ICD9: 496] Diagnosis: DYSPNEA[ICD9: 786.09] Diagnosis: DM W/O COMPLICATION TYPE II, UNCONTROLLED[ICD9: 250.02] Diagnosis: Actinic keratosis[ICD9: 702.0] Lita BARAKAT DO [facility] CPT-4: 70017 02/25/2015 ([id number]) OFFICE/OUTPATIENT VISIT EST Diagnosis: ASTHMA NOS[ICD9: 493.90] Diagnosis: COPD[ICD9: 496] Diagnosis: DM W/O COMPLICATION TYPE II, UNCONTROLLED[ICD9: 250.02] Lita BARAKAT DO [facility] CPT-4: 59944 10/27/2014 OFFICE/OUTPATIENT VISIT EST Diagnosis: DYSPNEA[ICD9: 786.09] Diagnosis: COPD[ICD9: 496] Lita BARAKAT DO [facility] CPT- 4: 30940 10/06/2014 ([id number]) OFFICE/OUTPATIENT VISIT EST Diagnosis: PNEUMONIA, ORGANISM[ICD9: 486] Diagnosis: COPD[ICD9: 496] Diagnosis: DYSPNEA[ICD9: 786.09] Ltia BARAKAT [employer] [facility] CPT-4: 57525 09/21/2014 OFFICE/OUTPATIENT VISIT EST Diagnosis: PNEUMONIA, ORGANISM[ICD9: 486] Diagnosis: DYSPNEA[ICD9: 786.09] Diagnosis: COUGH[ICD9: 786.2] Stephanie BARAKAT [employer] [facility] CPT-4: 75203 09/08/2014 OFFICE/OUTPATIENT VISIT EST Diagnosis: COPD with exacerbation[ICD9: 491.21] Diagnosis: COUGH[ICD9: 786.2] Diagnosis: DYSPNEA[ICD9: 786.09] Stephanie BARAKAT [employer] [facility] CPT-4: 96659 09/02/2014 ([id number]) OFFICE/OUTPATIENT VISIT EST Diagnosis: DM W/O COMPLICATION TYPE II, UNCONTROLLED[ICD9: 250.02] Lita BARAKAT [employer] [facility] CPT-4: 12613 08/27/2014 ([id number]) OFFICE/OUTPATIENT VISIT EST Diagnosis: DM W/O COMPLICATION TYPE II, UNCONTROLLED[ICD9: 250.02] Diagnosis: HYPERLIPIDEMIA NEC/NOS[ICD9: 272.4] Diagnosis: HYPERTENSION[ICD9: 401.9] Diagnosis: COPD[ICD9: 496] Diagnosis: FLU VACCINE[ICD10: Z23] Lita PABLO [facility] CPT-4: 34759 08/05/2014 ([id number]) OFFICE/OUTPATIENT VISIT EST Diagnosis: COPD[ICD9: 496] Diagnosis: Lumbar degenerative disc disease[ICD9: 722.52] Lita BARAKAT [facility] CPT-4: 32802 05/05/2014 OFFICE/OUTPATIENT VISIT EST Diagnosis: DYSPNEA[ICD9: 786.09] Diagnosis: COPD[ICD9: 496] [facility]ita [facility] CPT- [facility]: 68358 03/24/2014 ([id number]) OFFICE/OUTPATIENT VISIT EST Diagnosis: COPD[ICD9: 496] Diagnosis: DYSPNEA[ICD9: 786.09] [facility]ita [facility] CPT-[facility]: 62937 03/10/2014 OFFICE/OUTPATIENT VISIT EST Diagnosis: Subacromial bursitis[ICD9: 726.19] Diagnosis: Chronic low back pain[ICD9: 724.2] Diagnosis: Lumbar degenerative disc disease[ICD9: 722.52] [facility]ita [facility]: 13162 12/16/2013 ([id number]) OFFICE/OUTPATIENT VISIT EST Diagnosis: PHARYNGITIS, ACUTE[ICD9: 462] Diagnosis: COPD[ICD9: 496] Lita BARAKAT [facility] CPT- 4: 92346 10/09/2013 OFFICE/OUTPATIENT VISIT EST Diagnosis: COPD[ICD9: 496] Diagnosis: Acute exacerbation of chronic obstructive pulmonary disease (COPD)[ICD9: 491.21] Ruchi Buchanan LITA [facility] CPT-[facility]: 00004 09/18/2013 ([id number]) OFFICE/OUTPATIENT VISIT EST Diagnosis: PNEUMONIA, ORGANISM[ICD9: 486] Diagnosis: DM W/O COMPLICATION TYPE II[ICD9: 250.00] Lita [facility]: 55893 08/13/2013 ([id number]) OFFICE/OUTPATIENT VISIT EST Diagnosis: DM W/O COMPLICATION TYPE II, UNCONTROLLED[ICD9: 250.02] Diagnosis: HYPERLIPIDEMIA NEC/NOS[ICD9: 272.4] Diagnosis: HYPERTENSION[ICD9: 401.9] Diagnosis: DYSPNEA[ICD9: 786.09] Diagnosis: Family history of CABG[ICD9: V17.49] Lita [facility] CPT-[facility]: 96202 07/16/2013 ([id number]) OFFICE/OUTPATIENT VISIT EST Diagnosis: DM W/O COMPLICATION TYPE II, UNCONTROLLED[ICD9: 250.02] Diagnosis: HYPERLIPIDEMIA NEC/NOS[ICD9: 272.4] Diagnosis: HYPERTENSION[ICD9: 401.9] Lita Ramirez [facility] CPT-4: 52556 06/25/2013 OFFICE/OUTPATIENT VISIT EST Diagnosis: COUGH[ICD9: 786.2] Diagnosis: COPD[ICD9: 496] [facility]: 52683 04/09/2013 ([id number]) OFFICE/OUTPATIENT VISIT EST Diagnosis: Muscle spasm[ICD9: 728.85] Diagnosis: ARTHRALGIA-MULTIPLE SITES[ICD9: 719.49] Lita Ramirez [facility] CPT-[facility]: 43918 02/11/2013 OFFICE/OUTPATIENT VISIT EST Diagnosis: COPD with exacerbation[ICD9: 491.21] Diagnosis: BRONCHITIS, ACUTE[ICD9: 466.0] R[facility]eter [facility]: 09324 01/31/2013 OFFICE/OUTPATIENT VISIT EST Diagnosis: COUGH[ICD9: 786.2] Diagnosis: PHARYNGITIS, ACUTE[ICD9: 462] Diagnosis: SINUSITIS, ACUTE[ICD9: 461.9] Lita Ramirez [facility] CPT-[facility]: 80420 01/20/2013 OFFICE/OUTPATIENT VISIT EST Diagnosis: DIZZINESS/VERTIGO[ICD9: 780.4] Lita BARAKAT [facility] CPT-4: 28859 12/19/2012 OFFICE/OUTPATIENT VISIT EST Diagnosis: Skin lesion of left arm[ICD9: 709.9] Diagnosis: Otitis externa[ICD9: 380.10] Diagnosis: PHARYNGITIS, ACUTE[ICD9: 462] Lita BARAKAT [facility] CPT-4: 59094 10/21/2012 ([id number]) OFFICE/OUTPATIENT VISIT EST Diagnosis: DM W/O COMPLICATION TYPE II, UNCONTROLLED[ICD9: 250.02] Diagnosis: HYPERLIPIDEMIA NEC/NOS[ICD9: 272.4] Diagnosis: HYPERTENSION[ICD9: 401.9] Lita AREVALO [facility] CPT-4: 04797 09/19/2012 ([id number]) OFFICE/OUTPATIENT VISIT EST Diagnosis: DM W/O COMPLICATION TYPE II, UNCONTROLLED[ICD9: 250.02] Diagnosis: HYPERLIPIDEMIA NEC/NOS[ICD9: 272.4] Diagnosis: COPD[ICD9: 496] Lita BARAKAT [facility] CPT- 4: 01128 09/18/2012 ([id number]) OFFICE/OUTPATIENT VISIT EST Diagnosis: BRONCHITIS, ACUTE[ICD9: 466.0] Diagnosis: SINUSITIS, ACUTE[ICD9: 461.9] Lita BARAKAT [facility] CPT-4: 52530 08/28/2012 ([id number]) OFFICE/OUTPATIENT VISIT EST Diagnosis: COPD[ICD9: 496] Diagnosis: DYSPNEA[ICD9: 786.09] Diagnosis: VAC STREP PNEUMONIAE-FLU (Medicare)[ICD9: V06.6] Lita BARAKAT [facility] CPT-4: 36888 07/10/2012 ([id number]) OFFICE/OUTPATIENT VISIT EST Diagnosis: DM W/O COMPLICATION TYPE II, UNCONTROLLED[ICD9: 250.02] Diagnosis: HYPERTENSION[ICD9: 401.9] Diagnosis: HYPERLIPIDEMIA NEC/NOS[ICD9: 272.4] Diagnosis: DIZZINESS/VERTIGO[ICD9: 780.4] Lita CASTELLANOSNDER DO [facility] CPT-4: 40878 05/09/2012 ([id number]) OFFICE/OUTPATIENT VISIT EST Diagnosis: DM W/O COMPLICATION TYPE II, UNCONTROLLED[ICD9: 250.02] Diagnosis: HYPERLIPIDEMIA NEC/NOS[ICD9: 272.4] Diagnosis: HYPERTENSION[ICD9: 401.9] Diagnosis: MALAISE AND FATIGUE[ICD9: 780.79] Lita GOODE Daja SFerdinand JASMINNDER [facility] CPT-4: 52925 05/06/2012 OFFICE/OUTPATIENT VISIT EST Diagnosis: COUGH[ICD9: 786.2] Diagnosis: SINUSITIS, ACUTE[ICD9: 461.9] Diagnosis: PHARYNGITIS, ACUTE[ICD9: 462] Lita CRAWFORD SFerdinand [facility] CPT-4: 55491 10/02/2011 OFFICE/OUTPATIENT VISIT EST Diagnosis: DM W/O COMPLICATION TYPE II, UNCONTROLLED[ICD9: 250.02] Diagnosis: HYPERLIPIDEMIA NEC/NOS[ICD9: 272.4] Diagnosis: HYPERTENSION[ICD9: 401.9] Diagnosis: COPD[ICD9: 496] Lita HERRMANNQUELINE S. ORENDER DO [facility] CPT- 4: 47875 08/07/2011 OFFICE/OUTPATIENT VISIT EST Lita HERRMANNQUELINE S. ORE NDER DO [facility] CPT- 4: 88167 04/03/2011 ([id number]) OFFICE/OUTPATIENT VISIT EST Lita TOBAR [facility] CPT-4: 93274 01/18/2011 ([id number]) OFFICE/OUTPATIENT VISIT EST Lita TOBAR SUZANNE S. ORENDER DO [facility] CPT-4: 52254 12/19/2010 ([id number]) OFFICE/OUTPATIENT VISIT, EST Lita HOLMAN S. ORENDER DO [facility] CPT-4: 35567 04/05/2010 ([id number]) OFFICE/OUTPATIENT VISIT, EST Lita HOLMAN S. ORENDER DO [facility] CPT-4: 21142 01/13/2010 ([id number]) OFFICE/OUTPATIENT VISIT, EST Lita [facility] CPT-4: 84026 12/23/2009 ([id number]) OFFICE/OUTPATIENT VISIT, [facility] CPT-4: 67957 12/22/2009 ([id number]) OFFICE/OUTPATIENT VISIT, [facility] CPT-4: 89033 12/13/2009 Plan of Care Planned Activity Notes [...] Care Plan: Referral Order SNOMED-CT : 30 [id number] Pending 11/12/2019 Care Plan: Referral Order SNOMED-CT : 30 6389666 Pending 11/12/2019 Visit Diagnosis Plan: Right thyroid nodule Discussion: Check thyroid US ICD-9 : 241.0 ICD-10 : E04.1 09/11/2019 Visit Diagnosis Plan: Chronic obstructive pulmonary di sease, unspecified Discussion: Start Pulmonary Rehab Reviewed results of CT of chest ordered by pulmonology Follow Up: 3 months ICD-9 : 496 ICD-10 : J44.9 09/11/2019 Appointment: L[facility] [phone] [facility] [facility] 09/11/2019 Care Plan: US EXAM OF HEAD AND NECK LOIN C : 88106-7 Pending 09/11/2019 Visit Diagnosis Plan: Chronic bronchitis Discussion: A ugmentin for 10 days ICD-9 : 491.9 ICD-10 : J42 08/07/2019 Appointment: Lita Barakat WPtel: [address] [place] [address] ACUTE ILLNESS 08/07/2019 Visit Diagnosis Plan: Chronic [...] him that overuse of symbicort can cause usp damage and the albuterol is to be used every 4 hours as needed. call office later this week with worsening or no improvement ICD-9 : 491.21 ICD-10 : J44.1 07/14/2019 Appointment: Autumn Oneil [address] [place] [address] ACUTE ILLNESS 07/14/2019 Visit Diagnosis Plan: Primary [...] : K31.89 07/01/2019 Appointment: Lita Barakat WPtel: [address] [place] [address] US FOLLOW UP 07/01/2019 Care Plan: CT ABDOMEN W/O DYE LOINC : 36 103-0 Pending 07/01/2019 Care Plan: Referral Order SNOMED-CT : 30 0826179 Pending 07/01/2019 Visit Diagnosis Plan: Epigastric pain [...] R63.4 06/24/2019 Appointment: Lita [facility] [phone] [facility] [facility] 06/24/2019 Patient Education: Seroquel- [employer] Coupon [id number] https://www.[employer]/Def[employer] Your Head/resources/getResource/61/[email or web address] Completed 06/24/2019 Patient Education: ondansetron HCl- [employer] Coupon [id number] https://www.[employer] Your [employer]/resources/getResource/61/[email or web address] Completed 06/24/2019 Care Plan: US EXAM ABDOM COMPLETE LOINC : 19879-6 Pending 06/24/2019 Visit Diagnosis Plan: Anemia Discussion: [...] : J44.9 06/17/2019 Appointment: Lita Barakat WPtel: [address] [place] [address] US FOLLOW UP 06/17/2019 Appointment: Lita Barakat WPtel: [address] [place], [place] [phone] US INJECTION 06/10/2019 Appointment: Lita Barakat WPtel: [address] [place] [address] US INJECTION 06/02/2019 Appointment: Lita Barakat WPtel: [address] [place] [address] US INJECTION 05/27/2019 Appointment: Lita Barakat WPtel: [address] [place] [address] US INJECTION 05/12/2019 Visit Diagnosis Plan: Vitamin [...] : D64.9 05/08/2019 Appointment: Lita Barakat WPtel: [address] [place] [address] US FOLLOW UP 05/08/2019 Visit Diagnosis Plan: Pain in right knee Discussion: S top tramadol and tylenol q HS Trial of Hydrocodone 10/325mg po q HS Recheck 1month ICD-9 : 719.46 ICD-10 : M25.561 04/07/2019 Appointment: Lita Barakat WPtel: [phone] [id number] [facility] Follow Up 04/07/2019 Visit Diagnosis Plan: [...] : F41.1 03/24/2019 Appointment: Autumn Oneil [address] [place], [place] [address] ACUTE ILLNESS 03/24/2019 Patient Education: hydroxyzine HCl- [employer] Coupon [id number] Completed 03/24/2019 Patient Education: pantoprazole- [employer] Coupon [id number] Completed 03/24/2019 Visit Diagnosis Plan: Dizziness and [...] fice. patient's portable oxygen tank was empty. umobesj1j patient on importance of monitoring oxygen tank to be sure it does not become empty when he's out of the house. patient states he has an extra one in the car that he will use. ICD-9 : 491.21 ICD-10 : J44.1 03/21/2019 Appointment: Autumn Oneil [address] ACUTE ILLNESS 03/21/2019 Patient Education: ipratropium-albuterol- [employer] José vang [id number] https://www.[employer].com/samplemd/resources/getResource/61/[email or web address]-[email or web address]-31 Completed 03/21/2019 Visit Diagnosis Plan: Chronic obstructiv e pulmonary disease with (acute) exacerbation Discussion: Solumedrol now Use SVNs with duoneb at least q4hrs Patient is supposed to be on continuous oxygen but not wearing ICD-9 : 491.21 ICD-10 : J44.1 03/13/2019 Visit Diagnosis Plan: Candidal stomatitis Discussion: Diflucan and Nystatin susp ICD-9 : 112.0 ICD-10 : B37.0 03/13/2019 Appointment: Lita Barakat WPtel: [phone] [facility] ACUTE ILLNESS 03/13/2019 Patient Education: losartan- [employer] Coupon [id number] Completed 03/13/2019 Patient Education: nystatin- [employer] Coupon [id number] Completed 03/13/2019 Patient Education: fluconazole- [employer] Coupon [id number] Completed 03/13/2019 Visit Diagnosis Plan: Restless legs [...] : J44.0 03/10/2019 Appointment: Lita Barakat WPtel: [address] [place], [place] [phone] ACUTE ILLNESS 03/10/2019 Visit Diagnosis Plan: Restless legs syndrome Discussio n: Stop requip Increase sinemet to TID Add children's chewable MV with iron BID Add magnesium oxide 400mg daily Add Lyrica 75mg po q HS Stop trazadone Recheck 3 weeks Follow Up: 3 weeks ICD-9 : 333.94 ICD-10 : G25.81 02/26/2019 Appointment: Lita Barakat WPtel: [address] [place], [place] [phone] ACUTE ILLNESS 02/26/2019 Visit Diagnosis Plan: Primary insomnia Discussion: Tri al of doxepin 10-20mg po q HS prn sleep ICD-9 : 780.52 ICD-10 : F51.01 02/13/2019 Visit Diagnosis Plan: Chronic obstructive pulmonary di sease, unspecified Discussion: Stable Discussed trip to [place]--will get oxygen setup through [facility] ICD-9 : 496 ICD-10 : J44.9 02/13/2019 Appointment: Lita Barakta WPtel: [address] [place], [place] [phone] FOLLOW UP 02/13/2019 Patient Education: doxepin- [employer] Coupon [id number] https://www.[employer].Citymaps/samplemd/resources/getResource/61/[email or web address]-[email or web address] Completed 02/13/2019 Appointment: Lita Barakat WPtel: [address] [place], [place] [phone] CANCELED 01/20/2019 Visit Diagnosis Plan: Chronic obstructive pulmonary di sease, unspecified Discussion: Stable on oxygen Given Symbicort samples Follow Up: 1 months ICD-9 : 496 ICD-10 : J44.9 01/14/2019 Appointment: Lita Barakat WPtel: [address] [place], [place] [phone] Hospital Follow Up 01/14/2019 Visit Diagnosis Plan: [...] : J44.1 12/25/2018 Appointment: Lita Barakat WPtel: [phone] [facility] Hospital Follow Up 12/25/2018 Appointment: Lita Barakat WPtel: [phone] [facility] CANCELED 12/23/2018 Appointment: Ines Banerjee [facility] CANCELED 12/20/2018 Visit Diagnosis Plan: Essential (primary) [...] ICD-10 : J01.01 12/09/2018 Appointment: Ines Banerjee [facility] LAB 12/09/2018 Patient Education: cefdinir- [employer] Coupon [id number] https://www.[employer].Citymaps/samplemd/resources/getResource/61/[email or web address] Completed 12/09/2018 Visit Diagnosis Plan: Candidal stomatitis Discussion: Diflucan for 5 days Hold atorvastatin while taking ICD-9 : 112.0 ICD-10 : B37.0 12/05/2018 Appointment: Lita Barakat WPtel: [address] [place], [place] [id number] ACUTE ILLNESS 12/05/2018 Patient Education: fluconazole- [employer] Coupon [id number] https://www.[employer]/resources/getResource/61/[email or web address] Completed 12/05/2018 Appointment: Lita Barakat WPtel: [address] [place], [place] [id number] NO SHOW 11/11/2018 Visit Plan: Saline [...] : M25.561 10/23/2018 Appointment: Lita Barakat WPtel: [address] [place], [place] [id number] ACUTE ILLNESS 10/23/2018 Patient Education: prednisone- [employer] Coupon [id number] https://www.[employer]/resources/getResource/61/[email or web address]-[email or web address] Completed 10/23/2018 Care Plan: A1C HPLC LOINC : 58877-6 Pending 09/10/2018 Care Plan: COMPREHEN METABOLIC PANEL [place] : 75527-8 Pending 09/10/2018 Care Plan: CBC Pending 09/10/2018 [...] : G25.81 08/21/2018 Appointment: Lita Barakat WPtel: [address] [place] [address] ACUTE ILLNESS 08/21/2018 Care Plan: Referral Order SNOMED-CT : 30 [id number] Pending 08/21/2018 Visit Diagnosis Plan: Chronic obstructiv [...] : G25.81 08/07/2018 Appointment: Lita Barakat WPtel: [address] [place] [address] LM FOLLOW UP 08/07/2018 Appointment: Lita Barakattel: [address] [place] [address] 07/18/18 1210---see note in chart (km) CANCELED 07/18/2018 Visit Diagnosis Plan: Chronic obstructiv e pulmonary disease with acute lower respiratory infection Discussion: Solumedrol 125mg IM Change t o trelagy 1 inhalation daily Use SVNs with albuterol q4hrs To ER this weekend if worsens Monitor weight/swelling ICD-9 : 496 ICD-10 : J44.0 05/23/2018 Appointment: Lita Barakattel: [address] [place] [address] ACUTE ILLNESS 05/23/2018 Patient Education: Patient Medication Summary Completed 05/23/2018 Visit Diagnosis Plan: Candidal stomatitis Discussion: Diflucan for 7 more days--hold atrovastatin while taking ICD-9 : 112.0 ICD-10 : B37.0 05/02/2018 Appointment: Lita Barakat WPtel: [phone] [id number] FOLLOW UP 05/02/2018 Patient Education: Patient Medication [...] ICD-10 : R33.8 04/29/2018 Appointment: Autumn Oneil [address] [place], [place] [address] ACUTE ILLNESS 04/29/2018 Patient Education: Patient Medication [...] : J44.0 04/22/2018 Appointment: Lita Barakat WPtel: [address] [place], [place] [address] Hospital Follow Up 04/22/2018 Patient Education: Patient Medication Summary Completed 04/22/2018 Appointment: Lita Barakat WPtel: [address] [place], [place] [phone] 04/09/18 1640---see message in chart from today [...] : M17.11 01/28/2018 Appointment: Lita Barakat WPtel: [address] [place], [place] [address] ACUTE ILLNESS 01/28/2018 Patient Education: Patient Medication Summary Completed 01/28/2018 Care Plan: Referral Order SNOMED-CT : 30 [id number] Pending 01/28/2018 Care Plan: Referral Order SNOMED-CT : 30 9802167 Pending 01/28/2018 Visit Diagnosis Plan: Functional dyspepsia Discussion: Protonix Call in 1 week on how doing ICD-9 : 536.8 ICD-10 : K30 01/23/2018 Visit Diagnosis Plan: Pain in right knee Discussion: T opical voltaren gel QID ICD-9 : 719.46 ICD-10 : M25.561 01/23/2018 Appointment: Lita Barakat WPtel: [address] [place] [address] ACUTE ILLNESS 01/23/2018 Patient Education: Patient Medication [...] J44.0 01/02/2018 Appointment: Lita Barakat WPtel: [phone] ACUTE ILLNESS 01/02/2018 Patient Education: Patient [...] ICD-10 : J44.1 12/28/2017 Appointment: Autumn Oneil [address] [place] [address] Consult 12/28/2017 Patient Education: Patient Medication Summary [...] ICD-10 : J20.9 12/21/2017 Appointment: Autumn Oneil [address] [place], [place] [id number] ACUTE ILLNESS 12/21/2017 Patient Education: Patient Medication Summary Completed 12/21/2017 Care Plan: X-RAY EXAM OF KNEE 1 OR 2 [place] : 55842-0 Pending 12/18/2017 Visit Diagnosis Plan: Pain in [...] ICD-10 : J44.0 12/17/2017 Appointment: Autumn Oneil [address] [place], [place] [address] ACUTE ILLNESS 12/17/2017 Patient Education: Patient Medication Summary Completed 12/17/2017 Visit Diagnosis Plan: Unilateral primary osteoarthriti s, right knee Discussion: Right knee injection as above Warned of elevated BS after injection ICD-9 : 715.96 ICD-10 : M17.11 12/11/2017 Appointment: Lita Bar[facility]at [facility]Ptel[phone] [facility] 12/11/2017 Patient Education: Patient Medication Summary Completed 12/11/2017 Visit Diagnosis Plan: Actinic keratosis Discussion: Cr yotherapy as above If persists then will need excision by Dr. Swanson ICD-9 : 702.0 ICD-10 : L57.0 11/07/2017 Appointment: Lita Barakat WPtel: [address] [place] [address] ACUTE ILLNESS 11/07/2017 Patient Education: Patient Medication [...] : S61.411S 10/17/2017 Appointment: Lita Barakat WPtel: [address] [place] [address] ER Follow UP 10/17/2017 Patient Education: Patient Medication Summary Completed 10/17/2017 Appointment: Lita Barakat WPtel: [address] [place] [address] [place] Consult 08/15/2017 Visit Diagnosis Plan: Chronic [...] ICD-10 : J44.0 08/02/2017 Appointment: Autumn Oneil [address] [place] [address] ACUTE ILLNESS 08/02/2017 Patient Education: Patient Medication Summary Completed 08/02/2017 Patient Education: Patient Medication Summary Completed 07/31/2017 Care Plan: CHEST X-RAY 2VW FRONTAL&LATL LOINC : 58673-4 Pending 07/31/2017 Appointment: Lita Barakat WPtel: [address] [place], [place] [phone] [place] INJECTION 07/24/2017 Patient Education: Patient Medication [...] ICD-10 : J44.1 07/02/2017 Appointment: Autumn Oneil [address] [place] [address] ACUTE ILLNESS 07/02/2017 Patient Education: Patient Medication Summary Completed 07/02/2017 Care Plan: CHEST X-RAY 2VW FRONTAL&LATL LOINC : 25253-0 Pending 07/02/2017 Care Plan: MRI LUMBAR SPINE W/O DYE LOIN C : 82191-1 Pending 05/30/2017 Visit Plan: MRI at [facility] [place] codone 5.325 1 po q 4-6 hours prn pain #40 NR and Cyclobenzaprine (ERx) Continue warm packs for pain RTC if no improvement 05/29/2017 Appointment: Ruchi Buchanan WPtel: [address] [place], [place] [phone] ACUTE ILLNESS 05/29/2017 Patient Education: Patient Medication Summary Completed 05/29/2017 Appointment: Lita Barakat WPtel: [address] [place], [place] [address] [place] CANCELED 05/24/2017 Patient Education: Patient Medication Summary Completed 05/22/2017 Care Plan: X-RAY EXAM L-S SPINE 2/3 VWS LOINC : 73577-5 Pending 05/22/2017 Appointment: Lita Barakat WPtel: [address] [place], [place] [phone] [place] LAB 04/17/2017 Patient Education: Patient Medication Summary Completed 04/17/2017 Referral: Cassidy Demetrius WPtel: 12[address] [facility]6[address] Referral Initiated 04/05/2017 Appointment: Lita Barakat WPtel: [address] [place], [place] [phone] 03/30/17 0930---spoke with patient about ointments (km Consult 03/30/2017 Appointment: Lita Barakat WPtel: [address] [place], [place] [id number] 03/29/17 1320---spoke with patient, requip refilled wasn't received at pharmacy so verbally called (km) Consult 03/29/2017 Patient Education: Patient Medication Summary Completed 03/01/2017 Care Plan: CHEST X-RAY 2VW FRONTAL&LATL LOINC : 13643-4 Pending 03/01/2017 Visit Diagnosis Plan: Bursitis of left shoulder Discus yesi: Injection as above ICD-9 : 726.10 ICD-10 : M75.52 02/01/2017 Appointment: Lita Barakat WPtel: [address] [place], [place] [phone] 01/31 confirmed ~sl WORK IN 02/01/2017 Patient Education: Patient Medication Summary Completed 02/01/2017 Care Plan: X-RAY EXAM OF SHOULDER LOINC : 65352-4 Pending 01/30/2017 Visit Plan: May take OTC Tylenol/Ibuprof en as directed XRay at [facility] of left shoulder Tramadol 50mg 1 po q 6 hours prn pain called to [facility]. Sedation warning given (no driving, etc) RTC if no improvement 01/29/2017 Appointment: Ruchi Buchanan WPtel: [address] [place], [place] [phone] ACUTE ILLNESS 01/29/2017 Appointment: Ruchi Buchanan WPtel: [address] [place] [address] ACUTE ILLNESS 01/29/2017 Patient Education: Patient Medication Summary Completed 01/29/2017 Appointment: Lita Barakattel: [address] [place] [address] [place] Consult 01/10/2017 Appointment: Lita Barakat WPtel: [address] [place] [address] 12/27/2016 Patient Education: Patient Medication Summary Completed [...] : R53.83 12/21/2016 Appointment: Lita Barakat WPtel: [address] [place] [address] ACUTE ILLNESS 12/21/2016 Patient Education: Patient Medication Summary Completed 12/21/2016 Appointment: Lita Barakat WPtel: [address] [place] [address] CANCELED 12/18/2016 Visit Diagnosis Plan: Restless legs [...] D64.9 12/14/2016 Appointment: Lita Barakat WPtel: [phone] 12/13 confirmed ~sl WORK IN 12/14/2016 Appointment: Lita Barakat WPtel: [address] [place], [place] [address] [place] CANCELED 12/14/2016 Patient Education: Patient Medication Summary Completed 12/14/2016 Appointment: Lita Barakat WPtel: [address] [place], [place] [address] [place] LAB 12/12/2016 Patient Education: Patient Medication Summary Completed 12/12/2016 Appointment: Lita Barakat WPtel: [address] [place] [address] in ER this weekend--called for reports Consult 12/11/2016 Appointment: Lita Barakat WPtel: [address] [place] [address] [place] CANCELED 12/04/2016 Visit Diagnosis Plan: Pneumonia, [...] : G25.81 11/14/2016 Appointment: [facility] [facility] 11/14/2016 Patient Education: Patient Medication Summary Completed 11/14/2016 Appointment: Lita Barakat WPtel: [address] [place], [place] [phone] [place] RESCHEDULED 11/02/2016 Visit Diagnosis Plan: Candidal stomatitis Discussion: Diflucan and Nystatin Hold atorvastatin while taking diflucan ICD-9 : 112.0 ICD-10 : B37.0 10/31/2016 Appointment: Lita Barakat WPtel: [address] [place] [address] ACUTE ILLNESS 10/31/2016 Patient Education: Patient Medication Summary Completed 10/31/2016 Appointment: Lita Barakat WPtel: [address] [place] [address] [place] Consult 10/23/2016 Appointment: Lita Barakat WPtel: [address] [place], [place] [phone] [place] CANCELED 10/18/2016 Visit Plan: Rx as above Wear O2 at all t imes as instructed by Dr Chacon Continue breathing treatments Supportive care otherwise reviewed Follow up ingrid if not improving 10/03/2016 Appointment: Lita Barakat WPtel: [address] [place], [place] [phone] [place] CANCELED 10/03/2016 Appointment: Magda Toth [address] [place] [address] ACUTE ILLNESS 10/03/2016 Patient Education: Patient Medication Summary Completed 10/03/2016 Visit Plan: Titrate requip to 1.5mg x 1 week Call if not helpful and will increase to 2mg qHS NO MORE nyquil at bedtime - discussed potential effects of decongestants on heart, oversedating himself, etc Will increase requip, then amitriptyline if needed to desired effect 09/04/2016 Appointment: Magda Toth [address] [place] [address] ACUTE ILLNESS 09/04/2016 Patient Education: Patient Medication Summary Completed 09/04/2016 Visit Plan: Stop requip and try elavil C ryotherapy as above See ENT for removal of right ear lesion 08/22/2016 Appointment: Lita Barakat WPtel: [address] [place] [address] ACUTE ILLNESS 08/22/2016 Patient Education: Patient Medication Summary Completed 08/22/2016 Visit Plan: Trial of requip 1mg q HS Res tart zoloft Recheck 1month 08/10/2016 Appointment: Lita Barakat WPtel: [address] [place] [address] ACUTE ILLNESS 08/10/2016 Patient Education: Patient Medication Summary Completed 08/10/2016 Visit Plan: Stop HCTZ Flagyl for diarrhe a Hydrate Discussed meds for restless legs Zofran prn Nausea 07/06/2016 Appointment: Lita Barakat WPtel: [address] [place] [address] 07/05 confirmed~sl Hospital Follow Up 07/06/2016 Patient Education: Patient Medication Summary Completed 07/06/2016 Visit Plan: Reviewed with Dr Gasper Palacios sidering his recent history, instructed him to go straight to the ER called to notify her so she can meet him there 06/22/2016 Appointment: Magda Toth [address] [place] [address] ACUTE ILLNESS 06/22/2016 Patient Education: Patient Medication Summary Completed 06/22/2016 Visit Plan: Continue current meds Prevna r 13 and High Dose Flu given 06/13/2016 Appointment: Lita Barakat WPtel: [address] [place] [address] 06/13 confirmed~sl WORK IN 06/13/2016 Patient Education: Patient Medication Summary Completed 06/13/2016 Appointment: Lita Barakat WPtel: [address] [place] [address] just went over current medications CANCELED 06/08/2016 Visit Plan: Reviewed POC with Dr Barakat Stat cbc, cmp, d dimer, troponin, bnp, ekg, cxr If any worsening of symptoms while awaiting results, patient instructed to go to ER or call 911 06/01/2016 Appointment: Magda Toth 2305 [facility] ACUTE ILLNESS 06/01/2016 Patient Education: Patient Medication Summary Completed 06/01/2016 Referral: José Miguel Swanson WPtel: [address] 04/[address] swanson's office, patient [...] and treatment 04/26/2016 Appointment: Magda Toth 2[address] [facility] ACUTE ILLNESS 04/26/2016 Patient Education: Patient Medication Summary Completed 04/26/2016 Care Plan: Referral Order SNOMED-CT : 30 [id number] Pending 04/26/2016 Visit Plan: Left ear flushed after conse nt with warm water with peroxide with ear syringe Patient tolerated well Ear exam is wnl following flushing Follow up PRN 04/05/2016 Appointment: Magda Toth Lianna [facility]6[address] ACUTE ILLNESS 04/05/2016 Patient Education: Patient Medication Summary Completed 04/05/2016 Visit Plan: Increase Levemir to 25u sc d aily Increase sertraline to 2 full tablets daily--200mg Debrox or cerumenex to bilateral ears q HS for 3 nights then flush or fwup for fushing Check lab in 2mos then fwup 04/03/2016 Appointment: Lita Barakat WPtel: [address] [place], [place] [phone] 03/31 7 lm ~sl FOLLOW UP 04/03/2016 Patient Education: Patient Medication Summary Completed 04/03/2016 Visit Plan: Patient informed of correct dosage of levemir and how to administer. Patient verbalizes understanding and will call if any questions/concerns. 10 Units of Levemir given in office SC to right lower abdom en. Patient tolerated well. Site without redness/irritation. 03/13/2016 Appointment: Lita Barakat WPtel: [address] [place], [place] [phone] 03/13/2016 Patient Education: Patient Medication Summary Completed 03/13/2016 Appointment: Lita Barakat WPtel: [address] [place], [place] [phone] LAB 03/06/2016 Patient Education: Patient Medication Summary Completed 03/06/2016 Visit Plan: Patient saw Dr. Chacon this week and was given prednisone taper for COPD Continue current meds Accuchecks daily Patient will return on Sunday morning for fasting lab incuding CBC, CMP, TSH, free T4, HbA1C, Lipids, Testosterone, PSA 03/02/2016 Appointment: Lita Barakat WPtel: [address] [place] [address] 03/01 confirmed ~sl FOLLOW UP 03/02/2016 Patient [...] how doing 02/17/2016 Appointment: Lita Barakat WPtel: [address] [place] [address] WORK IN 02/17/2016 Patient Education: Patient Medication Summary Completed 02/17/2016 Visit Plan: Xrays to further evaluate Alvarez spect heel spur(s) Will call with results Has had injections in the past that were helpful Dr Barakat can do them or can refer to podiatry if warranted 02/14/2016 Appointment: Magda Toth [address] [place] [address] ACUTE ILLNESS 02/14/2016 Patient Education: Patient Medication Summary Completed 02/14/2016 Visit Plan: Increase Zoloft to 150mg cooper ly 01/31/2016 Appointment: Lita Barakat WPtel: [address] [place], [place] [address] [place] 01/26 confirmed `sl FOLLOW UP 01/31/2016 Patient Education: Patient Medication Summary Completed 01/31/2016 Visit Plan: Decrease citalopram to 20mg q AM for 1 week then stop Start zoloft 50mg q HS for 1 week then increase to 100mg q HS 12/30/2015 Appointment: Lita Barakat WPtel: [address] [place] [address] [place] 12/28 confirmed~sl ACUTE ILLNESS 12/30/2015 Patient Education: Patient Medication Summary Completed 12/30/2015 Visit Plan: Check Neck US 12/16/2015 Appointment: Lita Barakat WPtel: [address] [place], [place] [phone] 12/14 lm ~sl 12/15 confirmed-sp FOLLOW UP 12/16/2015 Patient Education: Patient Medication Summary Completed 12/16/2015 Care Plan: US EXAM OF HEAD AND NECK LOIN C : 01102-6 Ordered 12/16/2015 Appointment: Stephanie Rios WPtel: [address] [place], [place] [phone] [place] 12/09 confirmed-sp 12/12 lm ~sl Patient [...] PO TID 12/06/2015 Appointment: Stephanie Rios WPtel: [address] [place], [place] [address] ACUTE ILLNESS 12/06/2015 Patient Education: Patient Medication Summary Completed 12/06/2015 Referral: Lisbeth Darby WPtel: [facility] [address] [facility] [address] 11/18/15 called luther at [place] office and confirmed time and date of appointment with patient~sl Initiated 11/18/2015 Visit Plan: Referral to Dermatology for removal of facial skin lesions Cefdinir PO bid Topical Mupirocin to skin lesions bid 11/15/2015 Appointment: Stephanie Rios WPtel: [address] [place], [place] [phone] ACUTE ILLNESS 11/15/2015 Patient Education: Patient Medication Summary Completed 11/15/2015 Visit Plan: Continue current meds Accuch ecks daily Fwup with ophthamology as scheduled Will check lab in 3mos then fwup due to recent meds that will affect blood sugar 10/05/2015 Appointment: Lita Barakat WPtel: [address] [place], [place] [phone] 10/04/15 appt confirmed cn Annual Well Visit 08/2016 Patient Education: Patient Medication Summary Completed 10/05/2015 Visit Plan: Trajenta -1 sample box given Return visit in 6 weeks for fasting labs Notify for worsening symptoms such as Increased redness, swelling, pain or drainage of Rt. knee 07/22/2015 Appointment: Stephanie Rios WPtel: [address] [place], [place] [phone] 07/21 vm left cn FOLLOW UP 07/22/2015 Patient Education: Patient Medication Summary Completed 07/22/2015 Visit Plan: Continue to change dressing twice daily and apply Mupirocin Complete Doxycycline as directed. Follow-up for worsening symptoms, such as increased swelling, redness or pain. 07/01/2015 Appointment: Stephanie Rios WPtel: [address] [place], [place] [phone] FOLLOW UP 07/01/2015 Patient Education: Patient Medication Summary Completed 07/01/2015 Visit Plan: Pressure dressing applied to draining wound left knee. Instructed to change dressing twice daily and continue Mupirocin topical Doxycycline PO bid x 10 days Wound culture obtained. Wound tissue sent to pathology Follow-up in 3 days 06/28/2015 Appointment: Stephanie Rios WPtel: [address] [place], [place] [phone] ACUTE ILLNESS 06/28/2015 Patient Education: Patient Medication Summary Completed 06/28/2015 Visit Plan: Complete antibiotics Follow- up for increased tenderness, swelling or drainage. 06/09/2015 Appointment: Stephanie Rios WPtel: [facility] 06/08/15 lm FOLLOW UP 06/09/2015 Patient Education: Patient Medication Summary Completed 06/09/2015 Visit Plan: Apply pressure dressing toda y Continue antibiotics and topical Mupirocin Follow-up in 2 days Bursa drained from open area using pressure--serosanguinous drainage 06/07/2015 Appointment: Stephanie Rios WPtel: [facility] 06/04/15 confirmed with patient FOLLOW UP 0 06/07/2015 Patient Education: Patient Medication Summary Completed 06/07/2015 Visit Plan: Wound culture Lt. knee Apply mupirocin to open wound bid Clindamycin 600 mg PO bid x 10 days Follow-up on Sunday06/03/2015 Appointment: Stephanie Rios WPtel: [address] [place], [place] [phone] ACUTE ILLNESS 06/03/2015 Patient Education: Patient Medication Summary Completed 06/03/2015 Visit Plan: Accuchecks daily Check CMP, HbA1C today Patient is noncompliant with meds and diet but patient says he is doing everything he is supposed to do Wants to try performomist instead of albuterol in SVN 06/01/2015 Appointment: Lita Barakat WPtel: [address] [place] [address] 05/28 appt confirmed cn FOLLOW UP 06/01/20 Patient Education: Patient Medication Summary Completed 06/01/2015 Visit Plan: Change Breo Ellipta to Advai r 500/50 1 p BID this next month Continue turdoza Use albuterol prn Check CMP, HbA1C today Accuchecks daily Cryotherapy as above 02/25/2015 Appointment: Lita Barakat WPtel: [facility] 02/24 appt confirmed and explained needed payment he said ok FOLLOW UP 02/25/2015 Patient Education: Patient Medication Summary Completed 02/25/2015 Referral: Lopez Chacon [facility] C&D [id number] [place] Will put patient on cancellation list Initiated 12/08/2014 Appointment: Lita Barakat WPtel: [address] [place] [address] Hospital Follow Up 10/29/2014 Visit Plan: Finish prednisone Continue S VNs with albuterol QID See pulmonology and start Pulmonary rehab Once again discussed taking it easy this winter--that he is high risk for exacerbation 10/27/2014 Appointment: Lita Barakat WPtel: [address] [place] [address] FOLLOW UP 10/27/2014 Patient Education: Patient Medication Summary Completed 10/27/2014 Appointment: Lita Barakat WPtel: [address] [place], [place] [phone] FOLLOW UP 10/26/2014 Appointment: Stephanie Rios WPtel: [address] [place] [address] WORK IN 10/21/2014 Patient Education: Patient Medication Summary Completed 10/21/2014 Patient Education: Patient Medication Summary Completed 10/19/2014 Visit Plan: Continue oxygen and SVNS wit h duoneb Increase farxiga to 10mg daily Diflucan 100mg daily for 1week 10/06/2014 Appointment: Lita Barakat WPtel: [address] [place], [place] [phone] Moved appt time to 2:45pm FOLLOW UP 2014 Patient Education: Patient Medication Summary Completed 10/06/2014 Visit Plan: Finish omnicef Continue Breo BID and Turdoza Use SVNS with duoneb at least TID for next 2weeks then go to prn 09/21/2014 Appointment: Lita Barakat WPtel: [address] [place] [address] Hospital Follow Up 09/21/2014 Patient Education: Patient Medication Summary Completed 09/21/2014 Patient Education: [facility] - [employer] - Ventolin HFA - 18+ - Dynamic Portal ID Completed 09/21/2014 Appointment: Stephanie Rios WPtel: [address] [place], [place] [phone] Scheduled by 09/07 patient rescheduled to 09/08 with Stephanie. Hospital Follow Up 09/08/2014 Patient Education: Patient Medication Summary Completed 09/08/2014 Appointment: Stephanie Rios WPtel: [address] [place], [place] [phone] FOLLOW UP 09/02/2014 Patient Education: Patient Medication Summary Completed 09/02/2014 Patient Education: [employer] - Antibi otics, Analgesics 18+, Oral Contraceptives F 18+ Completed 09/02/2014 Appointment: Lita Barakat WPtel: [address] [place], [place] [phone] UA 08/27/2014 Patient Education: Patient Medication Summary [...] prn sleep 08/10/2014 Appointment: Lita Barakat WPtel: [address] [place], [place] [address] Annual Well Visit 08/10/2014 Patient Education: Patient Medication Summary Completed 08/10/2014 Appointment: Lita Barakat WPtel: [address] [place], [place] [phone] LAB 08/05/2014 Patient Education: Patient Medication Summary Completed 08/05/2014 Visit Plan: ECHO results reviewed Contin ue Breo and Turdoza Pt starts PT this afternoon for back--has had one epidural with no help in pain 05/05/2014 Appointment: Lita Barakat WPtel: [address] [place] [address] FOLLOW UP 05/05/2014 Patient Education: Patient Medication Summary Completed 05/05/2014 Visit Plan: Continue Breo and Turdoza Camargo s heart tests scheduled next week Will see surgeon for removal of skin cancer to neck after done with cardiac workup 03/24/2014 Appointment: Lita Barakat WPtel: [address] [place] [address] FOLLOW UP 03/24/2014 Patient Education: Patient Medication Summary Completed 03/24/2014 Visit Plan: Proceed with cardiology eval uation as patient is has numerous risk factors for CAD Change Symbicort to Breo 1p BID and add Turdorza 1p BID Recheck in weeks Check 2-D ECHO and lexiscan 03/10/2014 Appointment: Lita Barakat WPtel: [address] [place] [address] FOLLOW UP 03/10/2014 Patient Education: Patient Medication Summary Completed 03/10/2014 Visit Plan: Shoulder injection as above Back brace to use when doing any lifting for stability 12/16/2013 Appointment: Lita Barakat WPtel: [address] [place] [address] ACUTE ILLNESS 12/16/2013 Patient Education: Patient Medication Summary Completed 12/16/2013 Visit Plan: Continue symbicort and Turdo za Salt water gargles Omnicef 300mg 2 po daily for 1wk Phenergan with codeine 10/09/2013 Appointment: Lita Barakat WPtel: [address] [place] [address] WORK IN 10/09/2013 Patient Education: Patient Medication Summary Completed 10/09/2013 Appointment: Ruchi Buchanan WPtel: [address] [place] [address] ACUTE ILLNESS 09/18/2013 Patient Education: Patient Medication Summary Completed 09/18/2013 Visit Plan: Check on repeat CXR Finish a bx Start Tradjenta to replace metformin 08/13/2013 Appointment: Lita Barakat WPtel: [address] [place] [address] 08/12 Hospital Follow Up 08/13/2013 Patient Education: Patient Medication Summary Completed 08/13/2013 Visit Plan: Admit to hospital 08/06/2013 Appointment: Stephanie Rios WPtel: [address] [place] [address] ACUTE ILLNESS 08/06/2013 Patient Education: Patient Medication Summary Completed 08/06/2013 Visit Plan: Continue current meds Contin ue accuchecks daily Proceed with stress test due to high risk for CAD 07/16/2013 Appointment: Lita Barakat WPtel: [address] [place] [address] FOLLOW UP 07/16/2013 Patient Education: Patient Medication Summary Completed 07/16/2013 Appointment: Lita Barakat WPtel: [address] [place] [address] LAB 06/25/2013 Patient Education: Patient Medication Summary Completed 06/25/2013 Visit Plan: prednisone and azithromycin. Doing CBC and mycoplasma blood draw. Will continue inhaler and albuterol breathing treatments. 04/09/2013 Appointment: Kimberly Villalba WPtel: [address] [place] [address] ACUTE ILLNESS 04/09/2013 Patient Education: Patient Medication Summary Completed 04/09/2013 Appointment: Lita Barakat WPtel: [address] [place] [address] ACUTE ILLNESS 02/11/2013 Patient Education: Patient Medication Summary Completed 02/11/2013 Appointment: Ruchi Buchanan WPtel: [address] [place] [address] ACUTE ILLNESS 01/31/2013 Patient Education: Patient Medication Summary Completed 01/31/2013 Visit Plan: Cefdinir and medrol dose pac k. Codeine/guiaf cough syrup. Has colonoscopy on Sunday. Pt. is to notify if fever occurs or symptoms worsen. Hydration and rest. 01/20/2013 Appointment: Kimberly Villalba WPtel: [address] [place] [address] ACUTE ILLNESS 01/20/2013 Patient Education: Patient Medication Summary Completed 01/20/2013 Visit Plan: Scopalamine patch and vestib ular exercises 12/19/2012 Appointment: Lita Barakat WPtel: [address] [place] [address] ACUTE ILLNESS 12/19/2012 Patient Education: Patient Medication Summary Completed 12/19/2012 Visit Plan: Dr. Swanson consult if no impr ovement in hearing. Pt. reports he will notify if no better in one week. [facility]am consult for skin lesion. 10/21/2012 Appointment: Kimberly Villalba WPtel: [address] [place] [address] ACUTE ILLNESS 10/21/2012 Patient Education: Patient Medication Summary Completed 10/21/2012 Appointment: Lita Barakattel: [address] [place] [address] LAB 09/19/2012 Patient Education: Patient Medication Summary Completed 09/19/2012 Visit Plan: Check fasting lab in AM--CMP , Lipids, HbA1C 09/18/2012 Appointment: Lita Barakat WPtel: [address] [place] [address] FOLLOW UP 09/18/2012 Patient Education: Patient Medication Summary Completed 09/18/2012 Appointment: Lita Barakattel: [address] [place] [address] appt time scheduled sooner FOLLOW UP 09/05 Visit Plan: Doxycycline and Prednisone I ncrease SVN to QID Add back Symbicort 160/4.5 2 p BID 08/28/2012 Appointment: Lita Barakat WPtel: [address] [place], [place] [phone] [place] FOLLOW UP 08/28/2012 Patient Education: Patient Medication Summary Completed 08/28/2012 Appointment: Lita Barakat WPtel: [address] [place], [place] [phone] Annual Well Visit 07/10/2012 Patient Education: Patient Medication Summary Completed 07/10/2012 Visit Plan: Finish Z-pack Add Nasonex Ad d Meclizine Vestibular exercises Continue current meds and accuchecks Check lab and fwup in 4mos 05/09/2012 Appointment: Lita Barakat WPtel: [address] [place], [place] [phone] [place] number no longer works FOLLOW UP 2 Patient Education: Patient Medication Summary Completed 05/09/2012 Appointment: Lita Barakat WPtel: [address] [place], [place] [phone] [place] LAB 05/06/2012 Patient Education: Patient Medication Summary Completed 05/06/2012 Appointment: Lita Barakat WPtel: [address] [place], [place] [phone] [place] LAB 05/02/2012 Appointment: Lita Barakat WPtel: [address] [place], [place] [phone] [place] INJECTION 02/05/2012 Patient Education: Patient Medication Summary Completed 02/05/2012 Visit Plan: cefdinir. Will focus on rest and fluids. Pt. reports he is using breathing treatments as needed. Pt. will monitor for worsening symptoms or fever. 10/02/2011 Appointment: Kimberly Villalba WPtel: [address] [place], [place] [phone] ACUTE ILLNESS 10/02/2011 Patient Education: Patient Medication Summary Completed 10/02/2011 Appointment: Lita Barakat WPtel: [address] [place], [place] [phone] [place] INJECTION 08/10/2011 Patient Education: Patient Medication Summary Completed 08/10/2011 Visit Plan: Continue current meds Restar t Advair Restart exercise Flu shot given 08/07/2011 Appointment: Lita Barakattel: [address] [place], [place] [phone] [place] FOLLOW UP 08/07/2011 Patient Education: Patient Medication Summary Completed 08/07/2011 Appointment: Lita Barakattel: [address] [place], [place] [phone] [place] LAB 07/26/2011 Patient Education: Patient Medication Summary Completed 07/26/2011 Visit Plan: ALEKSANDER Carmen Continue Metformin but change to BID Add Lantus 25u sc q PM BS readings in 1wk 04/03/2011 Appointment: Lita Barakattel: [address] [place], [place] [phone] ACUTE ILLNESS 04/03/2011 Patient Education: Patient Medication Summary Completed 04/03/2011 Appointment: Lita Barakat WPtel: [address] [place], [place] [phone] [place] INJECTION 01/19/2011 Patient Education: Patient Medication Summary Completed 01/19/2011 Appointment: Lita Barakattel: [address] [place], [place] [phone] [place] ACUTE ILLNESS 01/18/2011 Patient Education: Patient Medication Summary Completed 01/18/2011 Appointment: Lita Barakattel: [address] [place], [place] [phone] [place] INJECTION 12/21/2010 Patient Education: Patient Medication Summary Completed 12/21/2010 Appointment: Lita Barakattel: [address] [place], [place] [phone] [place] FOLLOW UP 12/19/2010 Patient Education: Patient Medication Summary Completed 12/19/2010 Appointment: Lita Barakat WPtel: [address] [place], [place] [phone] [place] LAB 12/07/2010 Patient Education: Patient Medication Summary Completed 12/07/2010 Appointment: Kimberly Villalba WPtel: [address] [place], [place] [phone] ACUTE ILLNESS 04/05/2010 Patient Education: Patient Medication Summary Completed 04/05/2010 Appointment: Lita Barakat WPtel: [address] [place], [place] [phone] WORK IN 03/14/2010 Patient Education: Patient Medication Summary Completed 03/14/2010 Appointment: Lita Barakat WPtel: [address] [place], [place] [phone] [place] LAB 03/02/2010 Visit Plan: HbA1C in 3mos. Continue Accu checks BID alternating times. Switch lexapro to celexa 01/13/2010 Appointment: Lita Barakat WPtel: [address] [place], [place] [phone] FOLLOW UP 01/13/2010 Patient Education: Patient Medication Summary Completed 01/13/2010 Appointment: Lita Barakat WPtel: [address] [place], [place] [phone] FOLLOW UP 01/11/2010 Visit Plan: Pt. will continue the Avalox and Doxycycline regimen as prescribed the previous day. He has been advised to continue inhalers, breathing treatments and oxygen therapy for at least the weekend. Moderate activity without strenuous exercise. The pt. will seek immediate re-eval if his symptoms worsen. 12/23/2009 Appointment: Kimberly Villalba WPtel: [address] [place], [place] [phone] FOLLOW UP 12/23/2009 Patient Education: Patient Medication [...] tomorrow morning. 12/22/2009 Appointment: Kimberly Villalba WPtel: [address] [place] [address] ACUTE ILLNESS 12/22/2009 Patient Education: Patient Medication Summary Completed 12/22/2009 Appointment: Kimberly Villalba WPtel: [address] [place] [address] FOLLOW UP 12/21/2009 Appointment: Lita Barakat WPtel: [address] [place] [address] [place] INJECTION 12/16/2009 Patient Education: Patient Medication Summary Completed 12/16/2009 Appointment: Kimberly Villalba WPtel: [address] [place] [address] ACUTE ILLNESS 12/13/2009 Patient Education: Patient Medication Summary Completed 12/13/2009 Care Plan: X-RAY EXAM OF SHOULDER lt shoulder (pain ra diates across the shoulder) Hand carried orders to [facility] LOINC : 74930-6 Ordered 12/13/2009 Care Plan: X-RAY EXAM THORAC SPINE 2VWS Hand carried order LOINC : 88529-8 Ordered 12/13/2009 Care Plan: X-RAY EXAM RIBS UNI 2 VIEWS Posterior ribs of lt. side Pt. hand carries order to [facility] LOINC : 19343-5 Ordered 12/13/2009 Referral: José Miguel Swanson WPtel: [address] [address] [place] Referral Appointment Requested Referral: José Miguel Swanson WPtel: [address] [address] [place] Referral Appointment Requested Referral: Chandu Quarles WPtel: [address] Quarles for screening colonoscopy. P atient notified that [facility] office will book appt with him Initiated Referral: Santosh Machado WPtel: [facility] [place] A [id number] [place] Referral Appointment Requested Referral: José Miguel Swanson WPtel: [address] [address] [place] Referral Initiated Referral: Lopez Chacon [address] [facility] [address] [place] [address] [place] Referral Initiated Referral: Demetrius Rodriguez WPtel: [address] [address] [place] Referral Appointment Requested Referral: José Miguel Swanson WPtel: [address] [address] [place] Referral Appointment Requested Referral: José Miguel Swanson WPtel: [address] [address] [place] Referral Initiated Instructions Comment . Saline nasal flushes prn. Tylenol/Motr in prn headache. Notify if persists/symptoms worsening. . MRI at [facility] Hydrocodone 5.325 1 po q 4-6 [...]
--- OUTSIDE RECORDS SUMMARY | 2019-12-31 00:44 | XMS REPORT | CCD ---
Author Author Leandro Barakat D.O. Organization [facility] Address [address] [place] [address] Phone Care Team Providers Care Siphoner Name Role Phone Lita Barakat D.O., PP Unavailable CCM Unavailable Summary Purpose Interface Exchange Insurance Providers Payer name Policy type / Coverage type Covered democrat ID Effective Begin Date Effective End Date [employer] Medicare Part B [id number] 2018 Unknown Family history Brother Diagnosis Age At Onset Cancer Unknown Father Diagnosis Age At Onset Heart disease Unknown Mother Diagnosis Age At Onset Heart disease Unknown Social History Social History Element Codes Description Effective Dates Tobacco history SNOMED CT: 2470848 Former smoker quit 15 years ago 08/07/2011 [...] R07.9 06/22/2016 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: [...] Fill Instructions Seroquel 50 mg tablet RxNorm: 478144 1 Tablet(s) Oral QPM as ne eded for sleep 10/07/2019 12/05/2019 Active ropinirole 4 mg tablet RxNorm: 348252 3 TABLET(S) BY [facility] DAILY AT BEDTIME FOR RESTLESS LEGS 09/29/2019 12/27/2019 Active Generic For:REQU IP 4 MG TABLET 09/29/2019 7:52:42 AM N O T I C E Last quantity doesn't match original quantity ipratropium 0.5 mg-albuterol 3 mg (2.5 mg base)/3 mL n ebulization soln RxNorm: 4492204 USE 1 VIAL IN NEBULIZER EVERY FOUR HOURS (THIS REPLACES ALBUTEROL SOLUTION) 09/26/2019 10/15/2019 Inactive Generic For:*DUO NEB 2.5-0.5 MG/3 ML SOLN 09/26/2019 9:08:53 AM ropinirole 4 mg tablet RxNorm: 947079 3 TABLET(S) BY [facility] DAILY AT BEDTIME FOR RESTLESS LEGS 09/26/2019 09/28/2019 Inactive Generic For:REQU IP 4 MG TABLET 09/26/2019 9:08:48 AM N O T I C E Last quantity doesn't match original quantity hydrocodone 10 mg-acetaminophen 325 mg tablet RxNorm: 804542 1 Tablet(s) Oral Q4H as needed for pain 09/09/2019 09/09/2019 Inactive hydrocodone 10 mg-acetaminophen 325 mg tablet RxNorm: 644365 1 Tablet(s) Oral Q4H as needed for pain 09/09/2019 09/08/2019 Inactive ondansetron HCl 4 mg tablet RxNorm: 901974 1 Tablet(s) Oral QPM for nausea 08/12/2019 10/10/2019 Inactive ipratropium 0.5 mg-albuterol 3 mg (2.5 mg base)/3 mL n ebulization soln RxNorm: 0192038 1 Unit Dose INH Q4H 08/12/2019 09/25/2019 Inactive replaces albuterol solution Augmentin 875 mg-125 mg tablet RxNorm: 765740 1 Tablet(s) Oral two times a day 08/07/2019 08/17/2019 Inactive prednisone 20 mg tablet RxNorm: 155376 1 Tablet(s) Oral QD 08/05/2008/04/2019 Inactive prednisone 20 mg tablet RxNorm: 059185 1 Tablet(s) Oral QD 08/05/2008/06/2019 Inactive Levaquin 500 mg tablet RxNorm: 812148 1 Tablet(s) Oral QD Replaces azithromycin (z-pack) 07/31/2019 08/05/2019 Inactive Levaquin 500 mg tablet RxNorm: 848514 1 Tablet(s) Oral QD Replaces azithromycin (z-pack) 07/21/2019 07/26/2019 Inactive Levaquin 500 mg tablet RxNorm: 047218 1 Tablet(s) Oral QD Replaces azithromycin (z-pack) 07/21/2019 07/20/2019 Inactive Zithromax Z-Ugi 250 mg tablet RxNorm: 791554 Tablet(s) Oral 019 07/22/2019 Inactive Zithromax Z-Gui 250 mg tablet RxNorm: 404982 Tablet(s) Oral 019 07/15/2019 Inactive Symbicort 160 mcg-4.5 mcg/actuation HFA aerosol inhaler RxNo rm: 4902186 2 Puff(s) Inhalation two times a day 07/14/2019 07/14/2019 Inactive Tessalon Perles 100 mg capsule RxNorm: 689570 1 Capsule(s) Oral Q8H as needed 07/14/2019 08/06/2019 Inactive Seroquel 50 mg tablet RxNorm: 824539 1 Tablet(s) Oral QPM as ne eded for sleep 07/01/2019 10/06/2019 Inactive ondansetron HCl 4 mg tablet RxNorm: 279617 1 Tablet(s) Oral QPM for nausea 06/24/2019 07/24/2019 Inactive Seroquel 25 mg tablet RxNorm: 782577 1 Tablet(s) Oral every nig ht at bedtime 06/19/2019 06/18/2019 Inactive Seroquel 25 mg tablet RxNorm: 808805 1 Tablet(s) Oral every nig ht at bedtime 06/19/2019 06/30/2019 Inactive trazodone 150 mg tablet RxNorm: 163150 1/2 Tablet(s) PO QHS as needed for sleep 06/11/2019 06/17/2019 Inactive replaces PA on doxep in trazodone 150 mg tablet RxNorm: 405879 1/2 Tablet(s) PO QHS as needed for sleep 05/12/2019 06/11/2019 Inactive replaces PA on doxep in cyanocobalamin (vit B-12) 1,000 mcg/mL injection solution Rx Norm: 391535 1 injection weekly for 4 weeks 1 Milliliter(s) Inj 05/09/2019 No Stop Date Active Vitamin D3 5,000 unit tablet RxNorm: 293268 1 Tablet(s) PO QD 05/09 No Stop Date Active ferrous sulfate 325 mg (65 mg iron) tablet RxNorm: 397308 1 Tab let(s) PO QD 05/09/2019 No Stop Date Active magnesium oxide 400 mg (241.3 mg magnesium) tablet RxNorm: 1 20447 1 Tablet(s) PO QHS 05/09/2019 No Stop Date Active ropinirole 4 mg tablet RxNorm: 226674 3 TABLET(S) BY [facility] DAILY AT BEDTIME FOR RESTLESS LEGS 03/26/2019 06/23/2019 Inactive Generic For:REQU IP 4 MG TABLET 03/26/2019 11:23:36 AM N O T I C E Last quantity doesn't match original quantity pantoprazole 40 mg tablet,delayed release RxNorm: 806564 Tablet(s) TAKE 1 TABLET BY MOUTH DAILY FOR STOMACH 03/24/2019 06/21/2019 Inactive Gener ic For:PROTONIX 40MG TAB EC 01/03/2019 1:23:44 PM hydroxyzine HCl 10 mg tablet RxNorm: 617959 1 Tablet(s) PO BID as needed 03/24/2019 04/06/2019 Inactive ipratropium-albuterol 0.5 mg-3 mg(2.5 mg base)/3 mL ne bulization soln RxNorm: 0967973 1 Unit Dose INH Q4H 03/21/2019 No Stop Date Active replaces albuterol solution meclizine 12.5 mg tablet RxNorm: 952572 1 Tablet(s) PO BID as neede d 03/21/2019 No Stop Date Active losartan 100 mg tablet RxNorm: 841557 1 Tablet(s) PO QD replace s lisinopril 03/13/2019 09/08/2019 Inactive fluconazole 100 mg tablet RxNorm: 499206 1 Tablet(s) PO QD 03/13/20 19 03/19/2019 Inactive nystatin 100,000 unit/mL oral suspension RxNorm: 347025 5 Unit( s) PO QID 03/13/2019 03/26/2019 Inactive tramadol 50 mg tablet RxNorm: 037487 1 Tablet(s) PO TID as needed for pain TAKE 2 TABS OF EXTRA STRENGTH TYLENOL WITH EACH DOSE 03/10/2019 04/06/2019 Inactive Generic For:*ULTRAM 50 MG TABLET 01/15/2019 4:55:26 PM Sinemet CR 50 mg-200 mg tablet,extended release RxNorm: 8343 41 1 Tablet(s) PO TID 02/26/2019 08/24/2019 Inactive Generic For:*SIN EMET CR 50/200 TABLET SA 07/08/2018 3:09:11 PM trazodone 150 mg tablet RxNorm: 836813 1/2 Tablet(s) PO QHS as needed for sleep 02/13/2019 02/12/2019 Inactive trazodone 150 mg tablet RxNorm: 657309 1/2 Tablet(s) PO QHS as needed for sleep 02/13/2019 02/25/2019 Inactive replaces PA on doxep in doxepin 10 mg capsule RxNorm: 7459009 1-2 Capsule(s) PO QHS prn sleep 02/13/2019 02/13/2019 Inactive Novolog U-100 Insulin aspart 100 unit/mL subcutaneous soluti on RxNorm: 402952 INJECT 10 UNIT(S) SUBCUTANEOUSLY BEFORE MEALS 01/31/2019 05/30/2019 In active 01/31/2019 1:39:10 PM ipratropium-albuterol 0.5 mg-3 mg(2.5 mg base)/3 mL ne bulization soln RxNorm: 3389588 1 Unit Dose INH Q4H 01/17/2019 03/20/2019 Inactive replaces albuterol solution tramadol 50 mg tablet RxNorm: 187163 1 Tablet(s) PO TID as needed for pain TAKE 2 TABS OF EXTRA STRENGTH TYLENOL WITH EACH DOSE 01/15/2019 02/03/2019 Inactive Generic For:*ULTRAM 50 MG TABLET 01/15/2019 4:55:26 PM Sinemet CR 50 mg-200 mg tablet,extended release RxNorm: 8343 41 1 Tablet(s) PO BID 01/03/2019 02/25/2019 Inactive Generic For:*SIN EMET CR 50/200 TABLET 07/08/2018 3:09:11 PM losartan 100 mg tablet RxNorm: 794109 1 Tablet(s) PO QD replace s lisinopril 01/03/2019 03/12/2019 Inactive Symbicort 160 mcg-4.5 mcg/actuation HFA aerosol inhaler RxNo rm: 3213553 2 Puff(s) INH BID 01/03/2019 01/02/2019 Inactive pantoprazole 40 mg tablet,delayed release RxNorm: 633850 TAKE 1 TABLET BY MOUTH DAILY FOR STOMACH 01/03/2019 03/23/2019 Inactive Generic For:[place] OTONIX 40MG TAB EC 01/03/2019 1:23:44 PM nystatin 100,000 unit/mL oral suspension RxNorm: 523033 Unit(s) 5 Unit(s) PO QID swish and spit 01/02/2019 11/11/2019 Inactive Incruse Ellipta 62.5 mcg/actuation powder for inhalation RxN orm: 9063920 1 Capsule(s) INH QD 12/25/2018 No Stop Date Active Tessalon Perles 100 mg capsule RxNorm: 373289 1 Capsule(s) PO T ID for cough 12/25/2018 02/25/2019 Inactive Medrol (Gui) 4 mg tablets in a dose pack RxNorm: 803393 Tablet(s) PO Use as directed 12/23/2018 01/02/2019 Inactive Levemir FlexTouch U-100 Insulin 100 unit/mL (3 mL) sub cutaneous pen RxNorm: 475731 20 Unit(s) SQ QD with pen needles 12/13/2018 05/11/2019 Inactiv e prednisone 20 mg tablet RxNorm: 687224 1 Tablet(s) PO QD 12/12/2018 0 12/11/2018 Inactive prednisone 20 mg tablet RxNorm: 230134 1 Tablet(s) PO QD 12/12/2018 0 12/16/2018 Inactive promethazine 6.25 mg-codeine 10 mg/5 mL syrup RxNorm: 694471 5 Milliliter(s) PO QHS as needed for cough 12/09/2018 12/18/2018 Inactive cefdinir 300 mg capsule RxNorm: 023404 1 Capsule(s) PO BID 12/10/19 19 12/18/2018 Inactive fluconazole 100 mg tablet RxNorm: 488181 1 Tablet(s) PO QD 12/06/19 19 12/08/2018 Inactive ropinirole 4 mg tablet RxNorm: 618839 3 Tablet(s) PO QHS for re stless legs 12/04/2018 03/03/2019 Inactive Novolog U-100 Insulin aspart 100 unit/mL subcutaneous soluti on RxNorm: 206384 INJECT 10 UNIT(S) SUBCUTANEOUSLY BEFORE MEALS 12/04/2018 01/30/2019 In active 12/04/2018 10:02:42 AM nystatin 100,000 unit/mL oral suspension RxNorm: 720989 5 Unit(s) PO QID swish and spit 11/25/2018 12/18/2018 Inactive ropinirole 4 mg tablet RxNorm: 995894 3 Tablet(s) PO QHS for re stless legs 11/04/2018 12/03/2018 Inactive prednisone 20 mg tablet RxNorm: 714256 1 Tablet(s) PO BID 10/23/2018 10/29/2018 Inactive ropinirole 4 mg tablet RxNorm: 085453 3 Tablet(s) PO QHS for re stless legs 10/14/2018 11/04/2018 Inactive pantoprazole 40 mg tablet,delayed release RxNorm: 471207 1 Tablet(s) PO QD forstomach 10/10/2018 01/02/2019 Inactive Symbicort 160 mcg-4.5 mcg/actuation HFA aerosol inhaler RxNo rm: 6325909 2 Puff(s) INH BID 10/10/2018 01/03/2019 Inactive Novolog U-100 Insulin aspart 100 unit/mL subcutaneous soluti on RxNorm: 807929 INJECT 10 UNIT(S) SUBCUTANEOUSLY BEFORE MEALS 10/10/2018 12/03/2018 In active 10/10/2018 11:30:01 AM Sinemet CR 50 mg-200 mg tablet,extended release RxNorm: 8343 41 1 Tablet(s) PO BID 09/26/2018 01/03/2019 Inactive Generic For:*SIN EMET CR 50/200 TABLET SA 07/08/2018 3:09:11 PM ropinirole 4 mg tablet RxNorm: 546550 2 Tablet(s) PO QHS for re stless legs 09/18/2018 10/13/2018 Inactive metformin ER 1,000 mg tablet,extended release 24hr RxNorm: 1 119624 1 Tablet(s) PO BID 09/09/2018 12/18/2018 Inactive ropinirole 4 mg tablet RxNorm: 551178 2 Tablet(s) PO QHS for re stless legs 08/21/2018 09/17/2018 Inactive doxycycline hyclate 100 mg capsule RxNorm: 5682390 1 Capsule(s) PO BID 08/07/2018 08/13/2018 Inactive ropinirole 4 mg tablet RxNorm: 352440 1 Tablet(s) PO QHS replac es 1mg dose 08/07/2018 08/20/2018 Inactive ropinirole 2 mg tablet RxNorm: 205361 TAKE 3 TABLETS BY MOUTH DAILY AT BEDTIME DO NOT EXCEED 3 TABLETS PER DAY!!!! 07/31/2018 08/06/2018 Inactive Generic For:REQUIP 2 MG TABLET 07/30/2018 3:50:28 PM Symbicort 160 mcg-4.5 mcg/actuation HFA aerosol inhaler RxNo rm: 0467215 2 Puff(s) INH BID 07/12/2018 10/09/2018 Inactive Sinemet CR 50 mg-200 mg tablet,extended release RxNorm: 8343 41 TAKE 1 TABLET BY MOUTH TWICE DAILY 07/08/2018 09/26/2018 Inactive Generic For:*S INEMET CR 50/200 TABLET SA 07/08/2018 3:09:11 PM losartan 100 mg tablet RxNorm: 484696 1 Tablet(s) PO QD replace s lisinopril 06/17/2018 12/13/2018 Inactive Novolog U-100 Insulin aspart 100 unit/mL subcutaneous soluti on RxNorm: 594241 10 Unit(s) SQ AC 06/17/2018 10/09/2018 Inactive albuterol sulfate 2.5 mg/3 mL (0.083 %) solution for n ebulization RxNorm: 506117 Milliliter(s) INH USE 1 VIAL IN NEBULIZE R EVERY FOUR HOURS NEEDED FOR WHEEZING OR SHORTNESS OF BREATH 06/13/2018 01/16/2019 Inactive Generic For:*PROVENTIL 0.83 MG/ML SOLUTN 06/13/2013 2:04:46 PM ropinirole 2 mg tablet RxNorm: 214381 3 Tablet(s) PO QH S DO NOT EXCEED 6MG (3 TABLETS) PER DAY!!!! 06/13/2018 07/31/2018 Inactive atorvastatin 40 mg tablet RxNorm: 640302 Tablet(s) TAKE 1 TABLET BY MOUTH EVERY DAY 05/13/2018 12/18/2018 Inactive Generic For:LIPI TOR 40MG TAB 05/01/2018 8:37:31 AM Sinemet CR 50 mg-200 mg tablet,extended release RxNorm: 8343 41 1 Tablet(s) PO BID 05/08/2018 07/06/2018 Inactive Lidocaine Viscous 2 % mucosal solution RxNorm: 8457615 5 Milliliter(s) PO QID as needed 05/02/2018 08/06/2018 Inactive Diflucan 100 mg tablet RxNorm: 455557 1 Tablet(s) PO QD 05/02/2018 Inactive atorvastatin 40 mg tablet RxNorm: 367581 TAKE 1 TABLET BY MOUTH EVERY DAY 05/01/2018 05/13/2018 Inactive Generic For:LIPITOR 40MG TAB 05/01/2018 8:37:31 AM nystatin 100,000 unit/mL oral suspension RxNorm: 178343 5 Unit(s) PO QID (before meals and at bedtime) 04/24/2018 04/30/2018 Inactive Ventolin HFA 90 mcg/actuation aerosol inhaler RxNorm: 847876 2 Puff(s) INH Q4H as needed one inhaler for home and one inhaler for car 04/23/201812/18 Inactive Mucinex 600 mg tablet, extended release RxNorm: 408521 1 Tablet(s) PO BID for congestion 04/22/2018 05/21/2018 Inactive prednisone 10 mg tablet RxNorm: 935128 Tablet(s) PO as directeds 08/06/2018 Inactive ropinirole 2 mg tablet RxNorm: 924385 3 Tablet(s) PO QH S DO NOT EXCEED 6MG (3 TABLETS) PER DAY!!!! 04/09/2018 05/08/2018 Inactive gabapentin 300 mg capsule RxNorm: 328837 1-2 Capsule(s) PO QHS 0702/201804/08/2018 Inactive ropinirole 2 mg tablet RxNorm: 574240 1 Tablet(s) PO QHS 03/28/2018 0 04/08/2018 Inactive gabapentin 300 mg capsule RxNorm: 465819 1-2 Capsule(s) PO QHS 02/2303/29/2018 Inactive gabapentin 300 mg capsule RxNorm: 096040 1-2 Capsule(s) PO QHS 02/2203/13/2018 Inactive gabapentin 300 mg capsule RxNorm: 374043 2 Capsule(s) PO QHS 201703/11/2018 Inactive ropinirole 2 mg tablet RxNorm: 939859 1 Tablet(s) PO QHS 02/28/2018 0 03/28/2018 Inactive ropinirole 2 mg tablet RxNorm: 705961 1 Tablet(s) PO QHS 02/28/2018 0 02/27/2018 Inactive gabapentin 300 mg capsule RxNorm: 173722 1 Capsule(s) PO QHS 201702/27/2018 Inactive pantoprazole 40 mg tablet,delayed release RxNorm: 539518 1 Tablet(s) PO QD forstomach 01/23/2018 05/22/2018 Inactive Voltaren 1 % topical gel RxNorm: 002420 1 Gram(s) TOP QID to ri ght knee 01/23/2018 02/04/2018 Inactive metformin ER 500 mg tablet,extended release 24hr RxNorm: 860 975 2 Tablet(s) PO BID 01/09/2018 12/08/2018 Inactive Requip 1 mg tablet RxNorm: 181654 1 Tablet(s) PO QHS 01/09/201802/27 Inactive prednisone 20 mg tablet RxNorm: 040110 1 Tablet(s) PO T ID for 3 days then 1 po BID for 3 days then one daily for 3 days 01/02/2018 02/03/2018 Inactiv e Levaquin 500 mg tablet RxNorm: 475329 1 Tablet(s) PO QD 01/02/2018 Inactive ProAir HFA 90 mcg/actuation aerosol inhaler RxNorm: 933443 2 Puff(s) INH Q4H as needed 12/28/2017 No Stop Date Active please switch to ventolin if insurance doesn't cover montelukast 10 mg tablet RxNorm: 337488 1 Tablet(s) PO QD 12/28/2017 02/03/2018 Inactive Levaquin 500 mg tablet RxNorm: 556175 1 Tablet(s) PO QD 12/21/2017 Inactive ProAir HFA 90 mcg/actuation aerosol inhaler RxNorm: 145956 2 Puff(s) INH Q4H as needed 12/21/2017 12/27/2017 Inactive please switch to ventolin if insurance doesn't cover doxycycline hyclate 100 mg tablet RxNorm: 676920 1 Tablet(s) PO BID 12/17/2017 12/26/2017 Inactive Levemir FlexTouch U-100 Insulin 100 unit/mL (3 mL) sub cutaneous pen RxNorm: 644427 20 Unit(s) SQ QD with pen needles---Due for labs 12/11/2017 02/03/2018 Inactive Requip 1 mg tablet RxNorm: 932677 1 Tablet(s) PO QHS 12/10/201712/09 Inactive Requip 1 mg tablet RxNorm: 257316 1 Tablet(s) PO QHS 12/10/201701/09 Inactive albuterol sulfate 2.5 mg/3 mL (0.083 %) solution for n ebulization RxNorm: 839164 Milliliter(s) INH USE 1 VIAL IN NEBULIZE R EVERY FOUR HOURS NEEDED FOR WHEEZING OR SHORTNESS OF BREATH 12/05/2017 06/13/2018 Inactive Generic For:*PROVENTIL 0.83 MG/ML SOLUTN 06/13/2013 2:04:46 PM Tudorza Pressair 400 mcg/actuation breath activated RxNorm: 2517855 1 Puff(s) INH BID 12/03/2017 12/10/2017 Inactive Levemir FlexTouch U-100 Insulin 100 unit/mL (3 mL) sub cutaneous pen RxNorm: 807618 10 Unit(s) SQ QD with pen needles---Due for labs 11/16/2017 12/10/2017 Inactive Zofran ODT 4 mg disintegrating tablet RxNorm: 625120 1 Tablet(s) PO Q4H as needed for nausea 10/17/2017 02/04/2018 Inactive Efudex 5 % topical cream RxNorm: 929446 Application TOP QD prn to precancer skin lesions 10/17/2017 02/03/2018 Inactive Sinemet CR 50 mg-200 mg tablet,extended release RxNorm: 8343 41 1 Tablet(s) PO BID 10/17/2017 02/05/2018 Inactive Sinemet CR 50 mg-200 mg tablet,extended release RxNorm: 8343 41 1 Tablet(s) PO QHS 09/25/2017 10/16/2017 Inactive gabapentin 600 mg tablet RxNorm: 209530 1 Tablet(s) PO BID 08/15/20 17 08/14/2017 Inactive gabapentin 600 mg tablet RxNorm: 428073 1 Tablet(s) PO BID 08/15/20 17 12/10/2017 Inactive Novolog U-100 Insulin aspart 100 unit/mL subcutaneous soluti on RxNorm: 797737 10 Unit(s) SQ AC 08/15/2017 02/03/2018 Inactive Novolog 100 unit/mL subcutaneous solution RxNorm: 929645 10 Uni t(s) SQ AC 08/13/2017 08/14/2017 Inactive prednisone 20 mg tablet RxNorm: 022946 2 Tablet(s) PO QD 08/02/2017 1 10/04/2016 Inactive gabapentin 600 mg tablet RxNorm: 151941 Tablet(s) 1 Tab let(s) PO QHS replaces 300mg dose 07/09/2017 08/14/2017 Inactive Breo Ellipta 100 mcg-25 mcg/dose powder for inhalation RxNor m: 7790983 1 Unit Dose INH QD 07/02/2017 08/30/2017 Inactive Tudorza Pressair 400 mcg/actuation breath activated RxNorm: 1679904 1 Puff(s) INH BID 06/18/2017 12/02/2017 Inactive gabapentin 600 mg tablet RxNorm: 324451 1 Tablet(s) PO QHS repl aces 300mg dose 06/14/2017 07/08/2017 Inactive metformin ER 1,000 mg tablet,extended release 24hr RxNorm: 1 140776 1 Tablet(s) PO BID 05/29/2017 01/08/2018 Inactive cyclobenzaprine 5 mg tablet RxNorm: 981515 1 Tablet(s) PO TID 05/2906/07/2017 Inactive metformin ER 1,000 mg tablet,extended release 24hr RxNorm: 8 10597 1 Tablet(s) PO BID 05/25/2017 05/28/2017 Inactive metformin ER 1,000 mg tablet,extended release 24hr RxNorm: 8 42318 1 Tablet(s) PO BID 05/22/2017 05/24/2017 Inactive Amaryl 2 mg tablet RxNorm: 591589 1 Tablet(s) PO BID 05/01/201702/03 Inactive glimepiride 2 mg tablet RxNorm: 610397 1 Tablet(s) PO BID 04/19/2017 02/03/2018 Inactive ferrous sulfate 325 mg (65 mg iron) tablet RxNorm: 789364 1 Tab let(s) PO QHS 04/17/2017 02/03/2018 Inactive Requip 4 mg tablet RxNorm: 002901 1 Tablet(s) PO BID 04/12/201704/11 Inactive Requip 4 mg tablet RxNorm: 305459 1 Tablet(s) PO BID 04/12/201704/15 Inactive Levemir FlexTouch 100 unit/mL (3 mL) subcutaneous insulin pe n RxNorm: 415172 10 Unit(s) SQ QD with pen needles---Due for labs 04/05/2017 11/15/2017 In active Silenor 3 mg tablet RxNorm: 002368 1 Tablet(s) PO QHS 04/05/201709/25 Inactive ropinirole 4 mg tablet RxNorm: 798696 1 Tablet(s) PO QHS 03/29/2017 0 04/01/2017 Inactive ropinirole 4 mg tablet RxNorm: 277519 1 Tablet(s) PO QHS 03/29/2017 0 03/28/2017 Inactive Requip 4 mg tablet RxNorm: 872729 1 Tablet(s) PO QHS 03/28/201704/01 Inactive gabapentin 600 mg tablet RxNorm: 079875 1 Tablet(s) PO QHS repl aces 300mg dose 03/28/2017 04/15/2017 Inactive Requip 4 mg tablet RxNorm: 806352 1 Tablet(s) PO QHS 03/23/201703/27 Inactive gabapentin 600 mg tablet RxNorm: 258018 1 Tablet(s) PO QHS 03/13/20 17 03/12/2017 Inactive gabapentin 600 mg tablet RxNorm: 847961 1 Tablet(s) PO QHS 03/13/20 17 03/27/2017 Inactive gabapentin 300 mg capsule RxNorm: 824810 1 Capsule(s) PO QPM 201603/12/2017 Inactive Generic For:NEURONTIN 300 MG CAPSULE 01/22/2017 10:10:39 AM losartan 100 mg tablet RxNorm: 386558 1 Tablet(s) PO QD replace s lisinopril 02/21/2017 06/17/2018 Inactive gabapentin 300 mg capsule RxNorm: 754642 TAKE 1 CAPSULE BY MOUT H EVERY EVENING 01/22/2017 02/21/2017 Inactive Generic For:NEURONTI N 300 MG CAPSULE 01/22/2017 10:10:39 AM gabapentin 300 mg capsule RxNorm: 170226 1 Capsule(s) PO QPM 201601/21/2017 Inactive Requip 4 mg tablet RxNorm: 189801 1 Tablet(s) PO QHS 12/21/201603/20 Inactive Effient 10 mg tablet RxNorm: 114004 1 Tablet(s) PO QD 12/12/201612/23 Inactive gabapentin 300 mg capsule RxNorm: 518385 1 Capsule(s) PO QPM 201612/03/2016 Inactive gabapentin 300 mg capsule RxNorm: 462753 1 Capsule(s) PO QPM 201612/13/2016 Inactive Requip 4 mg tablet RxNorm: 366166 1 Tablet(s) PO QHS 11/28/201612/21 Inactive atorvastatin 40 mg tablet RxNorm: 206616 Tablet(s) 1 Tablet(s) PO Q D 11/22/2016 08/18/2017 Inactive atorvastatin 40 mg tablet RxNorm: 429636 1 Tablet(s) PO QD 11/23/19 17 11/21/2016 Inactive ropinirole 1 mg tablet RxNorm: 564104 2.5 Tablet(s) PO QPM for legs/sleep 11/14/2016 11/27/2016 Inactive nystatin 100,000 unit/mL oral suspension RxNorm: 068850 5 Unit(s) PO QID swish and spit 10/31/2016 02/03/2018 Inactive fluconazole 100 mg tablet RxNorm: 058576 1 Tablet(s) PO QD 10/31/19 17 11/09/2016 Inactive doxycycline hyclate 100 mg capsule RxNorm: 2835449 1 Capsule(s) PO BID 10/03/2016 10/12/2016 Inactive Levemir FlexTouch 100 unit/mL (3 mL) subcutaneous insulin pe n RxNorm: 196727 10 Unit(s) SQ QD with pen needles 09/18/2016 04/04/2017 Inactive amitriptyline 25 mg tablet RxNorm: 813647 1 Tablet(s) P O QHS as needed for sleep 09/04/2016 10/17/2016 Inactive ropinirole 1 mg tablet RxNorm: 365045 1.5 Tablet(s) PO QPM for legs/sleep 09/04/2016 11/13/2016 Inactive amitriptyline 25 mg tablet RxNorm: 602135 1 Tablet(s) P O QHS as needed for sleep 08/22/2016 09/03/2016 Inactive clopidogrel 75 mg tablet RxNorm: 209657 1 Tablet(s) PO QD 08/10/2016 10/17/2016 Inactive Zoloft 100 mg tablet RxNorm: 413772 2 Tablet(s) PO QHS 08/10/2016 Inactive atorvastatin 40 mg tablet RxNorm: 214379 1 Tablet(s) PO QD 08/10/2010/17/2016 Inactive ropinirole 1 mg tablet RxNorm: 293245 1 Tablet(s) PO QPM for le gs/sleep 08/10/2016 09/03/2016 Inactive losartan 100 mg tablet RxNorm: 796117 1 Tablet(s) PO QD replace s lisinopril 07/20/2016 02/21/2017 Inactive Zofran 4 mg tablet RxNorm: 230366 1 Tablet(s) PO Q4H as needed for nausea 07/06/2016 10/17/2016 Inactive Flagyl 500 mg tablet RxNorm: 327330 1 Tablet(s) PO TID 07/06/2016 Inactive Plavix 75 mg tablet RxNorm: 344454 1 Tablet(s) PO QD 06/08/201607/05 Inactive isosorbide mononitrate ER 30 mg tablet,extended release 24 h r RxNorm: 761795 1 Tablet(s) PO QAM 06/08/2016 08/09/2016 Inactive atorvastatin 40 mg tablet RxNorm: 911823 1 Tablet(s) PO QD 06/08/20 16 08/09/2016 Inactive hydrochlorothiazide 12.5 mg tablet RxNorm: 956466 1 Tablet(s) PO QA M 06/08/2016 07/05/2016 Inactive metformin ER 1,000 mg tablet,extended release 24hr RxNorm: 8 41048 1 Tablet(s) PO BID 06/08/2016 09/05/2016 Inactive metoprolol tartrate 25 mg tablet RxNorm: 090895 1/2 Tablet(s) PO BI D 06/08/2016 08/09/2016 Inactive Zoloft 100 mg tablet RxNorm: 736363 2 Tablet(s) PO QHS 04/03/2016 Inactive metformin ER 1,000 mg tablet,extended release 24hr RxNorm: 8 72227 Tablet(s) 1 Tablet(s) PO QD 03/30/2016 12/18/2018 Inactive Levemir FlexTouch 100 unit/mL (3 mL) subcutaneous insulin pe n RxNorm: 844745 10 Unit(s) SQ QD 03/09/2016 03/08/2016 Inactive Levemir FlexTouch 100 unit/mL (3 mL) subcutaneous insulin pe n RxNorm: 667158 10 Unit(s) SQ QD with pen needles 03/09/2016 03/20/2016 Inactive Mobic 15 mg tablet RxNorm: 175438 1 Tablet(s) PO QD for foot pain 0 02/17/2016 03/17/2016 Inactive Zoloft 100 mg tablet RxNorm: 183857 1 1/2 Tablet(s) PO QHS 01/31/20 16 04/02/2016 Inactive omeprazole 20 mg capsule,delayed release RxNorm: 199980 TAKE 2 CAPSULES BY MOUTH EVERY DAY 01/12/2016 08/09/2016 Inactive Generic For:*CHERYL LOSEC [address] 01/12/2016 8:58:34 AM Zoloft 100 mg tablet RxNorm: 474881 1/2 Tablet(s) PO QH S for 1 week then 1 tablet po q HS 12/30/2015 01/27/2016 Inactive Ventolin HFA 90 mcg/actuation aerosol inhaler RxNorm: 234387 2 Puff(s) INH QID as needed for shortness of breath 12/30/2015 02/03/2018 Inactive [AttnRPh: Saving apply/adjudicate RxGRP:SG20 RxBIN:[id number] RxPCN: ID#:[id number]] metformin ER 1,000 mg tablet,extended release 24hr RxNorm: 8 29186 1 Tablet(s) PO QD 12/20/2015 03/18/2016 Inactive clindamycin 300 mg capsule RxNorm: 401407 1 Capsule(s) PO TID 12/0512/15/2015 Inactive mupirocin 2 % topical cream RxNorm: 618789 TOP to facial lesion s twice daily 11/15/2015 12/15/2015 Inactive cefdinir 300 mg capsule RxNorm: 312991 1 Capsule(s) PO BID 11/15/19 16 11/24/2015 Inactive Medrol (Gui) 4 mg tablets in a dose pack RxNorm: 949692 Tablet(s) PO as directed 10/11/2015 12/15/2015 Inactive albuterol sulfate 2.5 mg/3 mL (0.083 %) solution for n ebulization RxNorm: 928640 INH USE 1 VIAL IN NEBULIZER EVERY FOUR H OURS NEEDED FOR WHEEZING OR SHORTNESS OF BREATH 10/05/2015 10/04/2015 Inactive Generic For:*PRO VENTIL 0.83 MG/ML SOLUTN 06/13/2013 2:04:46 PM doxycycline hyclate 100 mg capsule RxNorm: 5065111 1 Capsule(s) PO BID 10/05/2015 10/14/2015 Inactive albuterol sulfate 2.5 mg/3 mL (0.083 %) solution for n ebulization RxNorm: 809046 Milliliter(s) INH USE 1 VIAL IN NEBULIZE R EVERY FOUR HOURS NEEDED FOR WHEEZING OR SHORTNESS OF BREATH Dx: J44.9 10/05/2015 12/05/2017 Inacti ve Generic For:*PROVENTIL 0.83 MG/ML SOLUTN 06/13/2013 2:04:46 PM albuterol sulfate 2.5 mg/3 mL (0.083 %) solution for n ebulization RxNorm: 994553 3 Milliliter(s) INH USE 1 VIAL IN NEBULI ZER EVERY FOUR HOURS NEEDED FOR WHEEZING OR SHORTNESS OF BREATH 09/06/2015 10/04/2015 Inactive Generic For:*PROVENTIL 0.83 MG/ML SOLUTN 06/13/2013 2:04:46 PM Tradjenta 5 mg tablet RxNorm: 8212159 2 Tablet(s) PO QD 07/22/2015 Inactive albuterol sulfate 2.5 mg/3 mL (0.083 %) solution for n ebulization RxNorm: 430984 3 Milliliter(s) INH USE 1 VIAL IN NEBULI ZER EVERY FOUR HOURS NEEDED FOR WHEEZING OR SHORTNESS OF BREATH 06/29/2015 09/05/2015 Inactive Generic For:*PROVENTIL 0.83 MG/ML SOLUTN 06/13/2013 2:04:46 PM albuterol sulfate 2.5 mg/3 mL (0.083 %) solution for n ebulization RxNorm: 110541 Milliliter(s) INH USE 1 VIAL IN NEBULIZE R EVERY FOUR HOURS NEEDED FOR WHEEZING OR SHORTNESS OF BREATH 06/29/2015 12/04/2017 Inactive Generic For:*PROVENTIL 0.83 MG/ML SOLUTN 06/13/2013 2:04:46 PM doxycycline hyclate 100 mg tablet RxNorm: 120010 1 Tablet(s) PO BID 06/28/2015 07/07/2015 Inactive losartan 100 mg tablet RxNorm: 477325 1 Tablet(s) PO QD -replac es lisinopril 06/14/2015 09/05/2015 Inactive metformin ER 1,000 mg tablet,extended release 24hr RxNorm: 8 35256 1 Tablet(s) PO QD 06/14/2015 09/11/2015 Inactive losartan 100 mg tablet RxNorm: 238576 1 Tablet(s) PO QD -replac es lisinopril 06/14/2015 12/10/2015 Inactive Zocor 20 mg tablet RxNorm: 429001 Tablet(s) Tablet(s) 1 Tablet(s) PO QD -needs lipids labs 06/14/2015 06/14/2015 Inactive atorvastatin 40 mg tablet RxNorm: 680939 1 Tablet(s) PO QD repl aces simvastatin 06/14/2015 12/10/2015 Inactive loratadine 10 mg tablet RxNorm: 812947 Tablet(s) 1 Tablet(s) PO QD for drainage 06/14/2015 06/07/2016 Inactive Celexa 40 mg tablet RxNorm: 839986 1 Tablet(s) PO QD TA KE ONE (1) TABLET BY MOUTH DAILY 06/14/2015 12/29/2015 Inactive Generic For:HARJINDER XA 40 MG TABLET clindamycin 300 mg capsule RxNorm: 570354 2 Capsule(s) PO BID 06/0306/12/2015 Inactive metformin ER 1,000 mg tablet,extended release 24hr RxNorm: 8 77853 1 Tablet(s) PO QD 06/03/2015 06/02/2015 Inactive metformin ER 1,000 mg tablet,extended release 24hr RxNorm: 8 79041 1 Tablet(s) PO QD 06/03/2015 06/13/2015 Inactive mupirocin 2 % topical ointment RxNorm: 346519 TOP apply to open lesion of knee twice daily 06/03/2015 01/30/2016 Inactive Zocor 20 mg tablet RxNorm: 719737 Tablet(s) 1 Tablet(s ) PO QD -needs lipids labs 05/13/2015 06/13/2015 Inactive Celexa 40 mg tablet RxNorm: 655537 1 Tablet(s) PO QD TA KE ONE (1) TABLET BY MOUTH DAILY 05/13/2015 06/13/2015 Inactive Generic For:HARJINDER XA 40 MG TABLET Zocor 20 mg tablet RxNorm: 118450 Tablet(s) 1 Tablet(s ) PO QD -needs lipids labs 02/23/2015 03/24/2015 Inactive loratadine 10 mg tablet RxNorm: 771313 1 Tablet(s) PO QD for dr saenz 12/24/2014 06/13/2015 Inactive Zocor 20 mg tablet RxNorm: 907343 1 Tablet(s) PO QD -needs lipi ds labs 11/17/2014 02/23/2015 Inactive Celexa 40 mg tablet RxNorm: 681509 1 Tablet(s) PO QD 1 Tablet(s) PO QD 1 Tablet(s) PO QD Generic OKAY 11/11/2014 05/13/2015 Inactive Zocor 20 mg tablet RxNorm: 643021 1 Tablet(s) PO QD -needs lipi ds labs 11/11/2014 11/16/2014 Inactive omeprazole 20 mg capsule,delayed release RxNorm: 364275 2 Capsule(s) PO QD TAKE 2 CAPSULES BY MOUTH DAILY 10/27/2014 04/24/2015 Inactive Shena harp For:*PRILOSEC 20 MG CAPSULE trazodone 50 mg tablet RxNorm: 656135 1 1/2 Tablet(s) PO QHS 201412/29/2015 Inactive losartan 100 mg tablet RxNorm: 330152 1 Tablet(s) PO QD -replac es lisinopril 10/26/2014 04/23/2015 Inactive Levaquin 500 mg tablet RxNorm: 620717 1 Tablet(s) PO QD 10/08/2014 Inactive Levaquin 500 mg tablet RxNorm: 625414 1 Tablet(s) PO QD 10/08/2014 Inactive Diflucan 100 mg tablet RxNorm: 945498 1 Tablet(s) PO QD 10/06/2014 Inactive DuoNeb 0.5 mg-3 mg(2.5 mg base)/3 mL solution for nebulizati on RxNorm: 6870974 3 Milliliter(s) INH QID 09/23/2014 08/09/2016 Inactive Ventolin HFA 90 mcg/actuation aerosol inhaler RxNorm: 276402 2 Puff(s) INH QID as needed for shortness of breath 09/21/2014 12/29/2015 Inactive [AttnRPh: Saving apply/adjudicate RxGRP:SG20 RxBIN:[id number] RxPCN: ID#:[id number]] promethazine-codeine 6.25 mg-10 mg/5 mL syrup RxNorm: 641153 1 Teaspoon(s) PO QHS as needed for cough 09/08/2014 09/20/2014 Inactive prednisone 20 mg tablet RxNorm: 724517 1 Tablet(s) PO BID 09/02/2014 09/08/2014 Inactive promethazine-codeine 6.25 mg-10 mg/5 mL syrup RxNorm: 154570 1 Teaspoon(s) PO Q4H 09/02/2014 09/20/2014 Inactive doxycycline monohydrate 100 mg capsule RxNorm: 304979 1 Capsule (s) PO BID 09/02/2014 09/07/2014 Inactive Tessalon Perles 100 mg capsule RxNorm: 852493 1 Capsule (s) PO TID as needed for cough 08/31/2014 09/20/2014 Inactive Actos 15 mg tablet RxNorm: 088371 1 Tablet(s) PO QAM 1 Tablet(s ) PO QAM 08/26/2014 09/20/2014 Inactive loratadine 10 mg tablet RxNorm: 421583 1 Tablet(s) PO QD for dr saenz 08/26/2014 10/26/2014 Inactive Zithromax 500 mg tablet RxNorm: 328008 1 Tablet(s) PO QD 08/25/2014 1 11/01/2013 Inactive Zithromax 500 mg tablet RxNorm: 774247 1 Tablet(s) PO QD 08/25/2014 1 10/25/2013 Inactive Trazadone 75mg Tablet RxNorm: 1 Tablet(s) PO QHS 08/10/20142018 Inactive Zocor 20 mg tablet RxNorm: 348996 1 Tablet(s) PO QD 08/10/20142014 Inactive Trazadone 75mg Tablet RxNorm: 1 Tablet(s) PO QHS as need ed for sleep 08/10/2014 10/08/2014 Inactive Celexa 40 mg tablet RxNorm: 864718 1 Tablet(s) PO QD 1 Tablet(s) PO QD 1 Tablet(s) PO QD Generic OKAY 06/09/2014 10/06/2014 Inactive Actos 15 mg tablet RxNorm: 506375 1 Tablet(s) PO QAM 05/12/201408/26 Inactive lisinopril 20 mg tablet RxNorm: 205295 1 Tablet(s) PO QD 05/12/2014 0 10/26/2014 Inactive TAKE ONE TABLET BY MOUTH EVERY DAY;Gener ic For:*PRINIVIL 20 MG TABLET [AttnRPh: Saving apply/adjudicate RxGRP:SG20 RxBIN:[id number] RxPCN: ID#:[id number]] hydrocodone 5 mg-acetaminophen 325 mg tablet RxNorm: 531010 1 Tablet(s) PO TID as needed for pain for severe pain 04/30/2014 08/09/2014 Inactive hydrocodone 5 mg-acetaminophen 325 mg tablet RxNorm: 406756 1 Tablet(s) PO TID as needed for pain for severe pain 04/17/2014 04/29/2014 Inactive doxycycline hyclate 100 mg capsule RxNorm: 154188 1 Capsule(s) PO BID 03/05/2014 03/04/2014 Inactive doxycycline hyclate 100 mg capsule RxNorm: 673088 1 Capsule(s) PO BID 03/05/2014 03/14/2014 Inactive albuterol sulfate 2.5 mg/3 mL (0.083 %) solution for n ebulization RxNorm: 331873 Milliliter(s) INH USE 1 VIAL IN NEBULIZE R EVERY FOUR HOURS NEEDED FOR WHEEZING OR SHORTNESS OF BREATH 03/02/2014 06/29/2015 Inactive Generic For:*PROVENTIL 0.83 MG/ML SOLUTN 06/13/2013 2:04:46 PM Celexa 40 mg tablet RxNorm: 810061 1 Tablet(s) PO QD 1 Tablet(s) PO QD replaces lexapro. Generic OKAY 01/13/2014 06/09/2014 Inactive Actos 15 mg tablet RxNorm: 452065 1 Tablet(s) PO QAM 01/07/201405/12 Inactive lisinopril 20 mg tablet RxNorm: 145717 1 Tablet(s) PO QD 12/08/2013 0 05/12/2014 Inactive TAKE ONE TABLET BY MOUTH EVERY DAY;Gener ic For:*PRINIVIL 20 MG TABLET cefdinir 300 mg capsule RxNorm: 337753 2 Capsule(s) PO QD 11/10/2013 08/09/2014 Inactive cefdinir 300 mg capsule RxNorm: 914799 2 Capsule(s) PO QD 10/09/2013 10/15/2013 Inactive Actos 15 mg tablet RxNorm: 695426 1 Tablet(s) PO QAM 10/09/201301/06 Inactive doxycycline hyclate 100 mg capsule RxNorm: 5953573 1 Capsule(s) PO Q12H 09/18/2013 09/27/2013 Inactive omeprazole 20 mg capsule,delayed release RxNorm: 193402 2 Capsule(s) PO QD TAKE 2 CAPSULES BY MOUTH DAILY 09/03/2013 03/01/2014 Inactive Generi c For:*PRILOSEC [address] Celexa 40 mg tablet RxNorm: 386493 1 Tablet(s) PO QD re places lexapro. Generic OKAY 09/03/2013 01/13/2014 Inactive Symbicort 160 mcg-4.5 mcg/actuation HFA aerosol inhaler RxNo rm: 8483058 2 Puff(s) INH BID 08/13/2013 03/23/2014 Inactive metformin 1,000 mg tablet RxNorm: 217876 1 Tablet(s) PO BID 013 08/12/2013 Inactive TAKE ONE TABLET BY MOUTH TWI CE DAILY;Generic For:GLUCOPHAGE 1,000 MG TABLET 08/27/12 Thank you Actos 15 mg tablet RxNorm: 355925 1 Tablet(s) PO QAM 06/23/201310/09 Inactive lisinopril 20 mg tablet RxNorm: 349593 1 Tablet(s) PO QD 06/23/2013 0 12/08/2013 Inactive TAKE ONE TABLET BY MOUTH EVERY DAY;Gener ic For:*PRINIVIL 20 MG TABLET albuterol sulfate 2.5 mg/3 mL (0.083 %) solution for n ebulization RxNorm: 932024 Solution for Nebulization INH USE 1 VIAL IN NEBULIZER EVERY FOUR HOURS NEEDED FOR WHEEZING OR SHORTNESS OF BREATH 06/16/2013 03/01/2014 Inactive Generic For:*PROVENTIL 0.83 MG/ML SOLUTN 06/13/2013 2:04:46 PM prednisone 10 mg tablet RxNorm: 725230 1 Tablet(s) PO BID 04/09/2013 04/13/2013 Inactive AndroGel 1.25 gram/actuation (1%) Transdermal Gel Pump RxNorm: 2 39806 TD 04/09/2013 08/09/2014 Inactive APPLY 4 PUMPS OF GEL AT BEDTIME DIRECTED; (Appended: Controlled substance eRx refill - RxReferenceNumber: [id number]) azithromycin 250 mg tablet RxNorm: 596722 2 Tablet(s) PO QD 013 04/16/2013 Inactive Amaryl 2 mg tablet RxNorm: 330410 1 Tablet(s) PO BID N eeds appt in 1 month (around March 21) 02/18/2013 08/12/2013 Inactive Amaryl 2 mg tablet RxNorm: 139804 1 Tablet(s) PO BID 02/18/201302/17 Inactive metformin 1,000 mg tablet RxNorm: 847306 1 Tablet(s) PO BID 013 07/27/2013 Inactive TAKE ONE TABLET BY MOUTH TWI CE DAILY;Generic For:GLUCOPHAGE 1,000 MG TABLET 08/27/12 Thank you Actos 15 mg tablet RxNorm: 388648 1 Tablet(s) PO QAM 02/04/201306/03 Inactive albuterol sulfate 2.5 mg/3 mL (0.083 %) Neb Solution RxNorm: 756267 1 Unit Dose INH Q4H prn wheezing or shortness of breath 01/30/2013 06/15/2013 Inac tive Medrol (Gui) 4 mg tablets in a dose pack RxNorm: 469429 Tablet(s) PO as directed 01/20/2013 07/15/2013 Inactive cefdinir 300 mg capsule RxNorm: 658213 1 Capsule(s) PO BID anti biotic 01/20/2013 01/29/2013 Inactive lisinopril 20 mg tablet RxNorm: 495887 Tablet(s) PO 01/13/20132012 Inactive TAKE ONE TABLET BY MOUTH EVERY DAY;Gener ic For:*PRINIVIL 20 MG TABLET citalopram 40 mg tablet RxNorm: 380204 Tablet(s) PO 01/13/20132013 Inactive TAKE ONE (1) TABLET BY MOUTH DAILY;Gener ic For:CELEXA 40 MG TABLET omeprazole 20 mg capsule,delayed release RxNorm: 706131 Capsule(s) PO TAKE 2 CAPSULES BY MOUTH DAILY 11/15/2012 09/03/2013 Inactive Generic For:*PRILOSEC [address] amoxicillin 875 mg tablet RxNorm: 845317 1 Tablet(s) PO BID 013 10/28/2012 Inactive Actos 30 mg tablet RxNorm: 887748 1 Tablet(s) PO QD 09/23/20122011 Inactive Actos 15 mg tablet RxNorm: 057975 1 Tablet(s) PO QAM 09/23/201209/22 Inactive Actos 15 mg tablet RxNorm: 923328 1 Tablet(s) PO QAM 09/23/201202/04 Inactive prednisone 20 mg tablet RxNorm: 736833 1 Tablet(s) PO BID 08/28/2012 09/03/2012 Inactive doxycycline hyclate 100 mg tablet RxNorm: 5715123 1 Tablet(s) PO BI D 08/28/2012 09/06/2012 Inactive metformin 1,000 mg tablet RxNorm: 438400 Tablet(s) PO 08/27/201201/22 Inactive TAKE ONE TABLET BY MOUTH TWICE DAILY;Gen lewis For:GLUCOPHAGE 1,000 MG TABLET 08/27/12 Thank you citalopram 40 mg tablet RxNorm: 596066 Tablet(s) PO 07/30/20122012 Inactive TAKE ONE (1) TABLET BY MOUTH DAILY;Gener ic For:CELEXA 40 MG TABLET lisinopril 20 mg tablet RxNorm: 878158 Tablet(s) PO 07/30/20122012 Inactive TAKE ONE TABLET BY MOUTH EVERY DAY;Gener ic For:*PRINIVIL 20 MG TABLET AndroGel 1.25 gram/actuation (1%) Transdermal Gel Pump RxNor m: [id number] Gel in Metered-Dose Pump TD 07/09/2012 04/08/2013 Inactive APPLY 4 PUM PS OF GEL AT BEDTIME DIRECTED;WC (Appended: Controlled substance eRx refill - RxReferenceNumber: [id number]) citalopram 40 mg tablet RxNorm: 642420 Tablet(s) PO 07/01/20122011 Inactive TAKE ONE (1) TABLET BY MOUTH DAILY;Gener ic For:CELEXA 40 MG TABLET metformin 1,000 mg tablet RxNorm: 347269 1 Tablet(s) PO BID 012 08/25/2012 Inactive TAKE 1 TABLET BY MOUTH TWICE DAILY;Generic For:GLUCOPHAGE 1,000 MG TABLET meclizine 25 mg Tab RxNorm: 525750 1 Tablet(s) PO QID prn dizziness 05/09/2012 05/18/2012 Inactive lisinopril 20 mg tablet RxNorm: 107586 Tablet(s) PO QD 04/22/2012 Inactive TAKE ONE (1) TABLET BY MOUTH DAILY;Gener ic For:*PRINIVIL 20 MG TABLET metformin 1,000 mg tablet RxNorm: 714509 Tablet(s) PO 03/19/201212/2011 Inactive TAKE 1 TABLET BY MOUTH TWICE DAILY;Gener ic For:GLUCOPHAGE 1,000 MG TABLET cefdinir 300 mg Cap RxNorm: 766070 1 Capsule(s) PO BID 11/28/2011 Inactive cefdinir 300 mg Cap RxNorm: 311834 1 Capsule(s) PO BID 11/01/2011 Inactive citalopram 40 mg tablet RxNorm: 561074 Tablet(s) PO 10/30/20112011 Inactive TAKE ONE (1) TABLET BY MOUTH DAILY;Gener ic For:CELEXA 40 MG TABLET cefdinir 300 mg Cap RxNorm: 687442 1 Capsule(s) PO BID 10/02/2011 Inactive metformin 1,000 mg Tab RxNorm: 732271 1 Tablet(s) PO BID 09/28/2011 0 01/25/2012 Inactive citalopram 40 mg Tab RxNorm: 135010 1 Tablet(s) PO QD 09/28/201111/2011 Inactive omeprazole 20 mg capsule,delayed release RxNorm: 130837 2 Capsu le(s) PO QD 09/28/2011 03/25/2012 Inactive lisinopril 20 mg Tab RxNorm: 107003 Tablet(s) PO 08/21/2011 04/21/2012 Inactive TAKE ONE (1) TABLET BY MOUTH DAILY;Generic For:*PRINIVIL 20 MG TABLET AndroGel 1.25 gram/actuation (1%) Transdermal Gel Pump RxNor m: [id number] Gel in Metered-dose Pump TD 08/21/2011 07/09/2012 Inactive APPLY 4 PUM PS OF GEL AT BEDTIME DIRECTED (Appended: Controlled substance eRx refill - RxReferenceNumber: [id number]) Lantus Solostar 100 unit/mL (3 mL) Sub-Q Insulin Pen RxNorm: 544247 30 Unit(s) SQ QD 06/20/2011 05/08/2012 Inactive Lantus Solostar 100 unit/mL (3 mL) Sub-Q Insulin Pen RxNorm: 379211 30 Unit(s) SQ QD 06/19/2011 06/19/2011 Inactive metformin 1,000 mg Tab RxNorm: 952385 1 Tablet(s) PO BID 05/12/2011 1 11/09/2010 Inactive citalopram 40 mg Tab RxNorm: 424915 1 Tablet(s) PO QD 03/06/201105/2011 Inactive metformin 1,000 mg Tab RxNorm: 274767 1 Tablet(s) PO BID 12/27/2010 0 04/25/2011 Inactive lisinopril 20 mg Tab RxNorm: 811301 Tablet(s) PO TAKE 1 TABLET BY MOUTH EVERY DAY;Generic For:*PRINIVIL 20 MG TABLET 12/26/2010 08/20/2011 Inactive Ceftin 500 mg Tab RxNorm: 467485 1 Tablet(s) PO BID 12/19/20102010 Inactive omeprazole 20 mg Cap, Delayed Release RxNorm: 192112 2 Capsule( s) PO QD 09/13/2010 03/11/2011 Inactive Byetta 10 mcg/0.04 mL per dose Sub-Q Pen Injector RxNorm: 84 7913 1 Unit Dose SQ BID 09/07/2010 10/06/2010 Inactive Celexa 40 mg tablet RxNorm: 863869 1 Tablet(s) PO QD re places lexapro. Generic OKAY 08/09/2010 02/04/2011 Inactive Actos 30 mg Tab RxNorm: 758236 1 Tablet(s) PO QD 08/09/2010 04/02/2011 Inactive lisinopril 20 mg Tab RxNorm: 222780 1 Tablet(s) PO QD 08/09/201011/22 Inactive metformin 1,000 mg Tab RxNorm: 774041 1 Tablet(s) PO BID 08/09/2010 0 12/06/2010 Inactive Metformin 1,000 mg Tab RxNorm: 644329 1 Tablet(s) PO BID 04/26/2010 0 04/25/2010 Inactive metformin 1,000 mg Tab RxNorm: 025935 1 Tablet(s) PO BID 04/26/2010 1 Inactive Lomotil 2.5 mg-0.025 mg Tab RxNorm: 5237717 1 Tablet(s) PO TID 1-2 TABS THREE TIMES DAILY 04/05/2010 04/07/2010 Inactive Mupirocin 2 % Topical Cream RxNorm: 522291 TOP BID 04/05/201003/25 Inactive lisinopril 20 mg Tab RxNorm: 291158 1 Tablet(s) PO QD 03/29/201010/2009 Inactive Actos 30 mg Tab RxNorm: 311978 1 Tablet(s) PO QD 03/29/2010 07/26/2010 Inactive Lisinopril 20 mg Tab RxNorm: 559541 1 Tablet(s) PO QD 02/27/201001/2010 Inactive Actos 30 mg Tab RxNorm: 693300 1 Tablet(s) PO QD 02/14/2010 03/28/2010 Inactive Celexa 40 mg Tab RxNorm: 924850 1 Tablet(s) PO QD replaces lexapro 01/13/2010 07/11/2010 Inactive Cyclobenzaprine 10 mg Tab RxNorm: 736508 1 Tablet(s) PO TID prn spasm 12/23/2009 01/21/2010 Inactive Cyclobenzaprine 10 mg Tab RxNorm: 615267 1 Tablet(s) PO TID 010 12/22/2009 Inactive Hydrocodone-Acetaminophen 7.5 mg-750 mg Tab RxNorm: 563741 1 Ta blet(s) PO Q4-6H 12/23/2009 12/22/2009 Inactive Levemir FlexTouch U-100 Insulin 100 unit/mL (3 mL) sub cutaneous pen RxNorm: 954567 22 Unit(s) SQ QD No Start Date Active aspirin 81 mg tablet RxNorm: 754619 1 Tablet(s) PO QD No Start Date Active isosorbide mononitrate ER 60 mg tablet,extended release 24 h r RxNorm: 652648 1 Tablet(s) PO QD No Start Date Active amlodipine 5 mg tablet RxNorm: 536507 1 Tablet(s) PO QD No Start Date Active Vitamin D3 1,000 unit tablet RxNorm: 466772 3 Tablet(s) PO QD No St art Date 10/26/2014 Inactive Lexapro 20 mg Tab RxNorm: 010040 1 Tablet(s) PO QD No Start Date 12/24 Inactive loperamide 2 mg tablet RxNorm: 421957 Tablet(s) PO PRN No Start Date 06/07/2016 Inactive Janumet 50 mg-1,000 mg Tab RxNorm: 729061 1 Tablet(s) PO BID No Sta rt Date 01/12/2010 Inactive Levemir U-100 Insulin 100 unit/mL subcutaneous solution RxNo rm: 010614 10 Unit(s) SQ QHS No Start Date 12/08/2018 Inactive Medrol (Gui) 4 mg tablets in a dose pack RxNorm: 689762 Tablet(s) PO Use as directed No Start Date 12/22/2018 Inactive aspirin 325 mg tablet RxNorm: 032241 1 Tablet(s) PO QD No Start Date 08/09/2016 Inactive Efudex 5 % Topical Cream RxNorm: 855085 Application TOP QD prn fto skin lesion No Start Date 08/12/2013 Inactive nitroglycerin 0.4 mg sublingual tablet RxNorm: 507582 Tablet(s) SL as needed No Start Date 12/18/2018 Inactive levofloxacin 500 mg tablet RxNorm: 818413 1 Tablet(s) PO QD No Star t Date 08/06/2018 Inactive ferrous sulfate 325 mg (65 mg iron) tablet RxNorm: 694756 1 Tab let(s) PO QHS No Start Date 04/16/2017 Inactive fluorouracil 5 % topical cream RxNorm: 936263 1 TOP No Start James e 08/06/2018 Inactive Vitamin D3 1,000 unit capsule RxNorm: 902955 1 Capsule(s) PO QD No Start Date 02/03/2018 Inactive Hydrocodone-Acetaminophen 7.5 mg-750 mg Tab RxNorm: 813781 1 Ta blet(s) PO PRN No Start Date 08/09/2014 Inactive pantoprazole 40 mg tablet,delayed release RxNorm: 852575 1 Tabl et(s) PO QD No Start Date 01/22/2018 Inactive omeprazole 20 mg Cap, Delayed Release RxNorm: 509242 2 Capsule( s) PO QD No Start Date 09/12/2010 Inactive DuoNeb 0.5 mg-3 mg(2.5 mg base)/3 mL solution for nebulizati on RxNorm: 7364917 INH Q4H as needed No Start Date 10/22/2018 Inactive Lyrica 75 mg capsule RxNorm: 238454 2 Capsule(s) PO QHS No Start Da te 03/09/2019 Inactive isosorbide mononitrate ER 30 mg tablet,extended release 24 h r RxNorm: 796488 1 Tablet(s) PO QD No Start Date 12/08/2018 Inactive Tradjenta 5 mg tablet RxNorm: 5549921 1 Tablet(s) PO QD No Start Da te 08/09/2016 Inactive Tudorza Pressair 400 mcg/actuation breath activated RxNorm: 9522527 1 Puff(s) INH BID No Start Date 06/17/2017 Inactive Lantus Solostar 100 unit/mL (3 mL) Sub-Q Insulin Pen RxNorm: 804932 30 Unit(s) SQ QD No Start Date 06/18/2011 Inactive Requip 4 mg tablet RxNorm: 566492 1 Tablet(s) PO BID No Start Date Inactive Symbicort 160 mcg-4.5 mcg/actuation HFA aerosol inhaler RxNo rm: 2484160 2 Puff(s) INH BID No Start Date 07/11/2018 Inactive atorvastatin 40 mg tablet RxNorm: 249913 1 Tablet(s) PO QD No Start Date 12/18/2018 Inactive tramadol 50 mg tablet RxNorm: 731681 1 Tablet(s) PO TID as needed for pain (take alone with two extra strength tylenol) No Start Date 01/16/2019 Inactive Symbicort 160 mcg-4.5 mcg/actuation HFA aerosol inhaler RxNo rm: 7429611 2 Puff(s) INH BID No Start Date 08/12/2013 Inactive Vitamin D3 5,000 unit tablet RxNorm: 506603 1 Tablet(s) PO QD No St art Date 05/08/2019 Inactive albuterol sulfate 2.5 mg/3 mL (0.083 %) Neb Solution RxNorm: 418551 1 Unit Dose INH Q4H prn wheezing or shortness of breath No Start Date 01/29/2013 Inac tive Ranexa 500 mg tablet,extended release RxNorm: 010955 1 Tablet(s ) PO BID No Start Date 02/03/2018 Inactive Advair Diskus 500 mcg-50 mcg/dose powder for inhalation RxNo rm: 5249317 1 Puff(s) INH BID No Start Date 08/09/2016 Inactive clopidogrel 75 mg tablet RxNorm: 540635 1 Tablet(s) PO QD No Start Date 05/01/2018 Inactive metformin 1,000 mg Tab RxNorm: 796814 1 Tablet(s) PO BID No Start D ate 08/12/2013 Inactive Silenor 3 mg tablet RxNorm: 908852 1 Tablet(s) PO QHS No Start Date 0 04/04/2017 Inactive Medrol (Gui) 4 mg tablets in a dose pack RxNorm: 505666 Tablet(s) PO as directed No Start Date 01/19/2013 Inactive Requip 4 mg tablet RxNorm: 066799 1 Tablet(s) PO BID No Start Date Inactive clopidogrel 75 mg tablet RxNorm: 506955 1 Tablet(s) PO QD No Start Date 02/03/2018 Inactive Tradjenta 5 mg tablet RxNorm: 4749427 1 Tablet(s) PO QD No Start Da te 02/03/2018 Inactive ProAir HFA 90 mcg/Actuation Aerosol Inhaler RxNorm: 968827 2 Pu ff(s) INH PRN No Start Date 07/09/2012 Inactive Tessalon Perles 100 mg capsule RxNorm: 126344 1 Capsule (s) PO TID as needed for cough No Start Date 08/30/2014 Inactive ferrous sulfate 325 mg (65 mg iron) tablet RxNorm: 112128 1 Tab let(s) PO QD No Start Date 05/08/2019 Inactive pioglitazone 15 mg tablet RxNorm: 753736 1 Tablet(s) PO QD No Start Date 09/20/2014 Inactive Lexapro Oral RxNorm: Oral No Start Date 12/13/2009 Inactive Breo Ellipta 100 mcg-25 mcg/dose powder for inhalation RxNor m: 0780550 1 Puff(s) INH BID No Start Date 05/31/2015 Inactive Tylenol Extra Strength 500 mg tablet RxNorm: 187323 2 T ablet(s) PO QHS along with ropironole No Start Date 12/18/2018 Inactive tramadol 50 mg tablet RxNorm: 717426 1 Tablet(s) PO QID as need ed for pain No Start Date 12/24/2018 Inactive cyclobenzaprine 10 mg Tab RxNorm: 464471 Oral No Start Date 12/22 Inactive Levemir FlexTouch 100 unit/mL (3 mL) subcutaneous insulin pe n RxNorm: 847704 10 Unit(s) SQ QD No Start Date 03/08/2016 Inactive amlodipine 5 mg tablet RxNorm: 241746 1 Tablet(s) PO QD No Start Da te 08/09/2016 Inactive Novolog 100 unit/mL subcutaneous solution RxNorm: 539234 10 Uni t(s) SQ AC No Start Date 08/12/2017 Inactive Levemir FlexTouch 100 unit/mL (3 mL) subcutaneous insulin pe n RxNorm: 524573 25 Unit(s) SQ QPM No Start Date 08/06/2018 Inactive Farxiga 5 mg tablet RxNorm: 9236225 1 Tablet(s) PO QD No Start Date 0 10/05/2014 Inactive DuoNeb 0.5 mg-3 mg(2.5 mg base)/3 mL solution for nebulizati on RxNorm: 5115364 inhalation No Start Date 09/23/2014 Inactive Doxycycline 100 mg Cap RxNorm: 568395 1 Capsule(s) PO BID No Start Date 12/18/2010 Inactive Vitamin B12 1000mcg Tablet RxNorm: 1 Tablet(s) PO QD No Start Date 02/03/2018 Inactive Hydrocodone-Acetaminophen 7.5 mg-750 mg Tab RxNorm: 338439 1 Ta blet(s) PO Q6-8H No Start Date 12/22/2009 Inactive Xigduo XR 5 mg-1,000 mg tablet,extended release RxNorm: 1593 833 1 Tablet(s) PO QD No Start Date 05/31/2015 Inactive cyanocobalamin (vit B-12) 1,000 mcg/mL injection solution Rx Norm: 437557 1 injection weekly for 4 weeks 1 Milliliter(s) Inj No Start Date 05/08/2019 Inactive AndroGel 1.25 g/Actuation (1%) Transdermal Gel Pump RxNorm: 6358145 TD Apply 4pumps daily No Start Date 08/21/2011 Inactive Actoplus MET 15 mg-850 mg Tab RxNorm: 204028 1 Tablet(s) PO BID No Start Date 12/18/2010 Inactive Amaryl 2 mg tablet RxNorm: 173901 1 Tablet(s) PO BID No Start Date Inactive Levemir FlexTouch 100 unit/mL (3 mL) subcutaneous insulin pe n RxNorm: 966489 20 Unit(s) SQ QD No Start Date 06/12/2016 Inactive Symbicort 160 mcg-4.5 mcg/actuation HFA aerosol inhaler RxNo rm: 5322594 2 Puff(s) INH BID No Start Date 02/03/2018 Inactive Symbicort 160 mcg-4.5 mcg/Actuation Inhalation HFA Aer osol Inhaler RxNorm: 3571600 2 INH BID No Start Date 12/18/2010 Inactive Farxiga 5 mg tablet RxNorm: 4545665 1 Tablet(s) PO QD No Start Date 0 03/01/2015 Inactive magnesium oxide 400 mg (241.3 mg magnesium) tablet RxNorm: 1 92192 1 Tablet(s) PO QHS No Start Date 05/08/2019 Inactive Tradjenta 5 mg tablet RxNorm: 9279224 2 Tablet(s) PO QD No Start Da te 07/21/2015 Inactive Levemir FlexTouch U-100 Insulin 100 unit/mL (3 mL) sub cutaneous pen RxNorm: 989005 40 Unit(s) SQ QD No Start Date 08/06/2018 Inactive Sinemet CR 50 mg-200 mg tablet,extended release RxNorm: 8343 41 1 Tablet(s) PO QHS No Start Date 09/24/2017 Inactive metoprolol tartrate 25 mg tablet RxNorm: 336691 1/2 Tablet(s) P O BID No Start Date 02/03/2018 Inactive Requip 4 mg tablet RxNorm: 584284 1 Tablet(s) PO QHS No Start Date Inactive Ventolin HFA 90 mcg/actuation aerosol inhaler RxNorm: 856183 2 Puff(s) INH Q4H as needed No Start Date 04/22/2018 Inactive B12 5,000 mcg-100 mcg sublingual lozenge RxNorm: 282104 IM as d irected No Start Date 05/08/2019 Inactive ropinirole 1 mg tablet RxNorm: 856490 1 Tablet(s) PO QHS No Start D ate 08/06/2018 Inactive Percocet 5 mg-325 mg tablet RxNorm: 7650928 1 Tablet(s) PO Q4H as needed for pain (Dr Rizzo) No Start Date 10/22/2018 Inactive hydrocodone 5 mg-acetaminophen 325 mg tablet RxNorm: 607460 1 Tablet(s) PO TID as needed for pain for severe pain No Start Date 04/16/2014 Inactive scopolamine 1.5 mg 72 hr Transderm Patch RxNorm: 876941 Application TD Q72H for dizziness No Start Date 08/12/2013 Inactive ipratropium-albuterol 0.5 mg-3 mg(2.5 mg base)/3 mL ne bulization soln RxNorm: 7372539 1 Unit Dose INH Q4H No Start Date 01/16/2019 Inactive Medication Administered No Medication Administered data Immunizations Vaccine Codes Date Status Influenza CVX: 135 08/07/2019 Complete Pneumococcal CVX: 33 07/24/2017 Complete Influenza CVX: 135 06/13/2016 Complete Pneumococcal CVX: 133 06/13/2016 Complete Influenza CVX: 141 07/10/2012 Pneumovax Unknown 07/10/2012 Results Observation Observation Code Item Item Code Result Date S vice Location COMPLETE BLOOD COUNT [id number] WBC 5.5 10e9/L 06/17/20 19 Unknown COMPLETE BLOOD COUNT [id number] RBC 3.92 10e12/L 2018 Unknown COMPLETE BLOOD COUNT 2811192 HEMOGLOBIN 10.9 g/dL 06/17/20 19 Unknown COMPLETE BLOOD COUNT 8865243 HEMATOCRIT 34.8 % 06/17/20 19 Unknown COMPLETE BLOOD COUNT 5275165 MCV 88.8 fL 9 Unknown COMPLETE BLOOD COUNT 3091903 MCH 27.8 pg 9 Unknown COMPLETE BLOOD COUNT 4951284 MCHC 31.3 g/dL 9 Unknown COMPLETE BLOOD COUNT 3926143 PLATELET COUNT 239 10e9/L Unknown COMPLETE BLOOD COUNT 2529284 Mean Plt Volume 10.0 fL Unknown COMPLETE BLOOD COUNT 8553985 Neut Auto 68.0 % 9 Unknown COMPLETE BLOOD COUNT 2942436 Lymph Auto 14.8 % 06/17/20 19 Unknown COMPLETE BLOOD COUNT 6406901 [place] Auto 13.1 % 9 Unknown COMPLETE BLOOD COUNT 8888114 RDW 14.7 % 9 Unknown COMPLETE BLOOD COUNT 9941666 Eos Auto 3.6 % 9 Unknown COMPLETE BLOOD COUNT 1837779 Baso Auto 0.5 % 9 Unknown COMPLETE BLOOD COUNT 1650707 Neutrophil Abs 3.74 10e9/L Unknown COMPLETE BLOOD COUNT 2593036 Lymphocyte Abs 0.81 10e9/L Unknown COMPLETE BLOOD COUNT 1741175 Monocyte Abs 0.72 10e9/L 05/26 Unknown COMPLETE BLOOD COUNT 3993301 Eosinophil Abs 0.20 10e9/L Unknown COMPLETE BLOOD COUNT 7117847 RDW-SD 46.4 fL 9 Unknown COMPLETE BLOOD COUNT 1228061 Basophil Abs 0.03 10e9/L 05/26 Unknown IRON 37951 Iron 36 ug/dL 06/17/2019 Unknown VITAMIN B 12 21837 VITAMIN B12 540 pg/mL 06/17/2019 Unkn own GFR CALC 5846515 GFR Non Afr Amr 59 mL/min 06/17/2019 Unk nown GFR CALC 6114660 GFR Afr Amr >60 mL/min 06/17/2019 Unknow n ERYTHROCYTE SEDIMENTATION RATE 20067 Sed Rate 34 mm/hr 06/17/2019 Unknown THYROID STIMULATING HORMONE 40586 TSH 2.217 uIU/mL 06/17/2019 Unknown COMPREHENSIVE METABOLIC 02885 AST 12 U/L 2018 Unknown COMPREHENSIVE METABOLIC 82568 ALT 11 U/L 2018 Unknown COMPREHENSIVE METABOLIC 79657 BUN 17 mg/dL 2018 Unknown COMPREHENSIVE METABOLIC 86508 ALBUMIN 3.9 g/dL 2018 Unknown COMPREHENSIVE METABOLIC 70032 CHLORIDE 103 mmol/L 06/17 Unknown COMPREHENSIVE METABOLIC 23720 Bili Total 0.4 mg/dL 06/17 Unknown COMPREHENSIVE METABOLIC 26433 ALK PHOS 51 U/L 2018 Unknown COMPREHENSIVE METABOLIC 43542 SODIUM 140 mmol/L 06/17 Unknown COMPREHENSIVE METABOLIC 88717 CREATININE 1.20 mg/dL 05/26 Unknown COMPREHENSIVE METABOLIC 45705 CALCIUM 8.9 mg/dL 2018 Unknown COMPREHENSIVE METABOLIC 10056 POTASSIUM 4.5 mmol/L 06/17 Unknown COMPREHENSIVE METABOLIC 01950 Total Protein 6.1 g/dL Unknown COMPREHENSIVE METABOLIC 76768 Glucose 108 mg/dL 2018 Unknown COMPREHENSIVE METABOLIC 53748 Bicarbonate 27 mmol/L 05/26 Unknown COMPREHENSIVE METABOLIC 57925 AGAP 10 mmol/L 2018 Unknown FERRITIN 30365 FERRITIN 35.5 ng/mL 05/08/2019 Unknown VITAMIN D TOTAL (25 HYDROXY) 88310 Vitamin D 25 OH 26.0 ng/mL 05/08/2019 Unknown GLYCOSYLATED HEMOGLOBIN TEST 53048 Hgb A1c 33431-9 8.2 % 0 05/08/2019 Unknown MEAN GLUC 2719383 Calc Mean Gluc 189 mg/dL 05/08/2019 Unkn own GFR CALC 6441708 GFR Non Afr Amr >60 mL/min 05/08/2019 Un known GFR CALC 0020316 GFR Afr Amr >60 mL/min 05/08/2019 Unknow n VITAMIN B 12 54584 VITAMIN B12 197 pg/mL 05/08/2019 Unkn own IRON 15402 Iron 34 ug/dL 05/08/2019 Unknown COMPLETE BLOOD COUNT 6411045 WBC 6.9 10e9/L 05/08/20 19 Unknown COMPLETE BLOOD COUNT 7876324 RBC 3.95 10e12/L 2018 Unknown COMPLETE BLOOD COUNT 8321941 HEMOGLOBIN 11.1 g/dL 05/08/20 19 Unknown COMPLETE BLOOD COUNT 4555087 HEMATOCRIT 34.9 % 05/08/20 19 Unknown COMPLETE BLOOD COUNT 3474816 MCV 88.4 fL 9 Unknown COMPLETE BLOOD COUNT 8261222 MCH 28.1 pg 9 Unknown COMPLETE BLOOD COUNT 2412814 MCHC 31.8 g/dL 9 Unknown COMPLETE BLOOD COUNT 3351747 PLATELET COUNT 217 10e9/L Unknown COMPLETE BLOOD COUNT 7523678 Mean Plt Volume 9.6 fL Unknown COMPLETE BLOOD COUNT 8247561 Neut Auto 77.6 % 9 Unknown COMPLETE BLOOD COUNT 3746721 Lymph Auto 10.7 % 05/08/20 19 Unknown COMPLETE BLOOD COUNT 1509752 [place] Auto 10.4 % 9 Unknown COMPLETE BLOOD COUNT 9640971 RDW 14.7 % 9 Unknown COMPLETE BLOOD COUNT 5369489 Eos Auto 1.2 % 9 Unknown COMPLETE BLOOD COUNT 1930800 Baso Auto 0.1 % 9 Unknown COMPLETE BLOOD COUNT 7300471 Neutrophil Abs 5.35 10e9/L Unknown COMPLETE BLOOD COUNT 7331896 Lymphocyte Abs 0.74 10e9/L Unknown COMPLETE BLOOD COUNT 1032534 Monocyte Abs 0.72 10e9/L 04/24 Unknown COMPLETE BLOOD COUNT 0997275 Eosinophil Abs 0.08 10e9/L Unknown COMPLETE BLOOD COUNT 2314459 RDW-SD 46.6 fL 9 Unknown COMPLETE BLOOD COUNT 6659356 Basophil Abs 0.01 10e9/L 04/24 Unknown COMPREHENSIVE METABOLIC 13163 AST 13 U/L 2018 Unknown COMPREHENSIVE METABOLIC 28868 ALT 9 U/L 2018 Unknown COMPREHENSIVE METABOLIC 27665 BUN 18 mg/dL 2018 Unknown COMPREHENSIVE METABOLIC 32058 ALBUMIN 4.3 g/dL 2018 Unknown COMPREHENSIVE METABOLIC 89141 CHLORIDE 99 mmol/L 2018 Unknown COMPREHENSIVE METABOLIC 97609 Bili Total 0.4 mg/dL 05/08 Unknown COMPREHENSIVE METABOLIC 81368 ALK PHOS 48 U/L 2018 Unknown COMPREHENSIVE METABOLIC 00510 SODIUM 137 mmol/L 05/08 Unknown COMPREHENSIVE METABOLIC 11308 CREATININE 0.79 mg/dL 04/24 Unknown COMPREHENSIVE METABOLIC 91321 CALCIUM 9.5 mg/dL 2018 Unknown COMPREHENSIVE METABOLIC 79215 POTASSIUM 4.0 mmol/L 05/08 Unknown COMPREHENSIVE METABOLIC 24550 Total Protein 6.3 g/dL Unknown COMPREHENSIVE METABOLIC 22478 Glucose 232 mg/dL 2018 Unknown COMPREHENSIVE METABOLIC 91868 Bicarbonate 27 mmol/L 04/24 Unknown COMPREHENSIVE METABOLIC 95941 AGAP 11 mmol/L 2018 Unknown GLYCOSYLATED HEMOGLOBIN TEST 65763 Hgb A1c 94662-5 8.9 % 0 12/10/2018 Unknown MEAN GLUC 7556745 Calc Mean Gluc 209 mg/dL 12/10/2018 Unkn own LIPID GROUP 62160 Cholesterol 145 mg/dL 12/09/2018 Unkno wn LIPID GROUP 59987 Triglyceride 235 mg/dL 12/09/2018 Unkn own LIPID GROUP 27418 HDL CHOLESTEROL 40 mg/dL 12/09/2018 U nknown LIPID GROUP 94986 Chol/HDL Ratio 3.62 ratio 12/09/2018 U nknown LIPID GROUP 62925 NON-HDL Chol 105 mg/dL 12/09/2018 Unkn own LIPID GROUP 51967 LDL Cholesterol 58 mg/dL 12/09/2018 U nknown THYROID STIMULATING HORMONE 01937 TSH 1.071 uIU/mL 12/09/2018 Unknown GFR CALC 5339375 GFR Non Afr Amr >60 mL/min 12/09/2018 Un known GFR CALC 4288485 GFR Afr Amr >60 mL/min 12/09/2018 Unknow n COMPLETE BLOOD COUNT 7296484 WBC 7.6 10e9/L 12/10/19 19 Unknown COMPLETE BLOOD COUNT 3981635 RBC 3.97 10e12/L 2018 Unknown COMPLETE BLOOD COUNT 7192653 HEMOGLOBIN 11.4 g/dL 12/10/19 19 Unknown COMPLETE BLOOD COUNT 3731220 HEMATOCRIT 35.8 % 12/10/19 19 Unknown COMPLETE BLOOD COUNT 8062055 MCV 90.2 fL 9 Unknown COMPLETE BLOOD COUNT 2326330 MCH 28.7 pg 9 Unknown COMPLETE BLOOD COUNT 7112088 MCHC 31.8 g/dL 9 Unknown COMPLETE BLOOD COUNT 9365434 PLATELET COUNT 200 10e9/L Unknown COMPLETE BLOOD COUNT 2533679 Mean Plt Volume 10.1 fL Unknown COMPLETE BLOOD COUNT 6501977 Neut Auto 79.0 % 9 Unknown COMPLETE BLOOD COUNT 3403499 Lymph Auto 8.3 % 12/10/19 19 Unknown COMPLETE BLOOD COUNT 3954597 [place] Auto 10.8 % 9 Unknown COMPLETE BLOOD COUNT 9287789 RDW 14.6 % 9 Unknown COMPLETE BLOOD COUNT 0581045 Eos Auto 1.5 % 9 Unknown COMPLETE BLOOD COUNT 9151391 Baso Auto 0.4 % 9 Unknown COMPLETE BLOOD COUNT 7235864 Neutrophil Abs 6.00 10e9/L Unknown COMPLETE BLOOD COUNT 2807890 Lymphocyte Abs 0.63 10e9/L Unknown COMPLETE BLOOD COUNT 6604378 Monocyte Abs 0.82 10e9/L 11/22 Unknown COMPLETE BLOOD COUNT 3004124 Eosinophil Abs 0.11 10e9/L Unknown COMPLETE BLOOD COUNT 1379524 RDW-SD 46.9 fL 9 Unknown COMPLETE BLOOD COUNT 6074161 Basophil Abs 0.03 10e9/L 11/22 Unknown COMPREHENSIVE METABOLIC 73299 AST 11 U/L 2018 Unknown COMPREHENSIVE METABOLIC 55069 ALT 11 U/L 2018 Unknown COMPREHENSIVE METABOLIC 84192 BUN 21 mg/dL 2018 Unknown COMPREHENSIVE METABOLIC 07051 ALBUMIN 4.7 g/dL 2018 Unknown COMPREHENSIVE METABOLIC 66057 CHLORIDE 99 mmol/L 2018 Unknown COMPREHENSIVE METABOLIC 59062 Bili Total 0.4 mg/dL 12/09 Unknown COMPREHENSIVE METABOLIC 50286 ALK PHOS 73 U/L 2018 Unknown COMPREHENSIVE METABOLIC 98884 SODIUM 137 mmol/L 12/09 Unknown COMPREHENSIVE METABOLIC 22199 CREATININE 1.12 mg/dL 11/22 Unknown COMPREHENSIVE METABOLIC 13495 CALCIUM 9.4 mg/dL 2018 Unknown COMPREHENSIVE METABOLIC 14753 POTASSIUM 4.2 mmol/L 12/09 Unknown COMPREHENSIVE METABOLIC 20049 Total Protein 6.8 g/dL Unknown COMPREHENSIVE METABOLIC 47845 Glucose 194 mg/dL 2018 Unknown COMPREHENSIVE METABOLIC 08394 Bicarbonate 30 mmol/L 11/22 Unknown COMPREHENSIVE METABOLIC 73297 AGAP 8 mmol/L 2018 Unknown FREE T4 04216 T4 Free 0.86 ng/dL 12/09/2018 Unknown COMPLETE BLOOD COUNT 1564630 WBC 6.8 10e9/L 04/17/20 17 Unknown COMPLETE BLOOD COUNT 0582872 RBC 3.86 10e12/L 2016 Unknown COMPLETE BLOOD COUNT 1328311 HEMOGLOBIN 9.8 g/dL 04/17/20 17 Unknown COMPLETE BLOOD COUNT 0360200 HEMATOCRIT 31.1 % 04/17/20 17 Unknown COMPLETE BLOOD COUNT 0880453 MCV 80.6 fL 7 Unknown COMPLETE BLOOD COUNT 9158390 MCH 25.4 pg 7 Unknown COMPLETE BLOOD COUNT 7947211 MCHC 31.5 g/dL 7 Unknown COMPLETE BLOOD COUNT 4439299 PLATELET COUNT 247 10e9/L Unknown COMPLETE BLOOD COUNT 5235831 Mean Plt Volume 9.7 fL Unknown COMPLETE BLOOD COUNT 7709308 Neut Auto 74.1 % 7 Unknown COMPLETE BLOOD COUNT 7990511 Lymph Auto 12.0 % 04/17/20 17 Unknown COMPLETE BLOOD COUNT 1348495 [place] Auto 10.8 % 7 Unknown COMPLETE BLOOD COUNT 5211257 RDW 15.9 % 7 Unknown COMPLETE BLOOD COUNT 6118282 Eos Auto 2.5 % 7 Unknown COMPLETE BLOOD COUNT 9046962 Baso Auto 0.6 % 7 Unknown COMPLETE BLOOD COUNT 7862832 Neutrophil Abs 5.04 10e9/L Unknown COMPLETE BLOOD COUNT 3836764 Lymphocyte Abs 0.82 10e9/L Unknown COMPLETE BLOOD COUNT 7684436 Monocyte Abs 0.73 10e9/L 03/25 Unknown COMPLETE BLOOD COUNT 5718505 Eosinophil Abs 0.17 10e9/L Unknown COMPLETE BLOOD COUNT 7088422 RDW-SD 44.4 fL 7 Unknown COMPLETE BLOOD COUNT 4864542 Basophil Abs 0.04 10e9/L 03/25 Unknown MEAN GLUC 6243804 Calc Mean Gluc 223 mg/dL 04/17/2017 Unkn own GFR CALC 2300247 GFR Non Afr Amr >60 mL/min 04/17/2017 Un known GFR CALC 0322164 GFR Afr Amr >60 mL/min 04/17/2017 Unknow n GLYCOSYLATED HEMOGLOBIN TEST 29896 Hgb A1c 32524-4 9.4 % 0 04/17/2017 Unknown IRON 26005 Iron 37 ug/dL 04/17/2017 Unknown VITAMIN B 12 14506 VITAMIN B12 280 pg/mL 04/17/2017 Unkn own THYROID STIMULATING HORMONE 60141 TSH 2.481 uIU/mL 04/17/2017 Unknown COMPREHENSIVE METABOLIC 32931 AST 13 U/L 2016 Unknown COMPREHENSIVE METABOLIC 29764 ALT 12 U/L 2016 Unknown COMPREHENSIVE METABOLIC 89177 BUN 18 mg/dL 2016 Unknown COMPREHENSIVE METABOLIC 83771 ALBUMIN 4.7 g/dL 2016 Unknown COMPREHENSIVE METABOLIC 98790 CHLORIDE 103 mmol/L 04/17 Unknown COMPREHENSIVE METABOLIC 47275 Bili Total 0.4 mg/dL 04/17 Unknown COMPREHENSIVE METABOLIC 69789 ALK PHOS 49 U/L 2016 Unknown COMPREHENSIVE METABOLIC 38620 SODIUM 140 mmol/L 04/17 Unknown COMPREHENSIVE METABOLIC 89923 CREATININE 1.14 mg/dL 03/25 Unknown COMPREHENSIVE METABOLIC 77625 CALCIUM 9.4 mg/dL 2016 Unknown COMPREHENSIVE METABOLIC 25335 POTASSIUM 4.4 mmol/L 04/17 Unknown COMPREHENSIVE METABOLIC 37554 Total Protein 6.7 g/dL Unknown COMPREHENSIVE METABOLIC 87908 Glucose 266 mg/dL 2016 Unknown COMPREHENSIVE METABOLIC 26929 Bicarbonate 25 mmol/L 03/25 Unknown COMPREHENSIVE METABOLIC 44324 AGAP 12 mmol/L 2016 Unknown FERRITIN 23235 FERRITIN 10.0 ng/mL 04/17/2017 Unknown COMPLETE BLOOD COUNT 2291965 WBC 6.8 10e9/L 12/22/19 17 Unknown COMPLETE BLOOD COUNT 0721128 RBC 3.70 10e12/L 2016 Unknown COMPLETE BLOOD COUNT 7505114 HEMOGLOBIN 8.0 g/dL 12/22/19 17 Unknown COMPLETE BLOOD COUNT 7205224 HEMATOCRIT 26.7 % 12/22/19 17 Unknown COMPLETE BLOOD COUNT 4065011 MCV 72.2 fL 7 Unknown COMPLETE BLOOD COUNT 8414274 MCH 21.6 pg 7 Unknown COMPLETE BLOOD COUNT 5741533 MCHC 30.0 g/dL 7 Unknown COMPLETE BLOOD COUNT 5098701 PLATELET COUNT 290 10e9/L Unknown COMPLETE BLOOD COUNT 1289012 Mean Plt Volume 9.3 fL Unknown COMPLETE BLOOD COUNT 9435496 Neut Auto 80.2 % 7 Unknown COMPLETE BLOOD COUNT 9731901 Lymph Auto 9.8 % 12/22/19 17 Unknown COMPLETE BLOOD COUNT 4086974 [place] Auto 8.1 % 7 Unknown COMPLETE BLOOD COUNT 3046904 RDW 17.4 % 7 Unknown COMPLETE BLOOD COUNT 8433162 Eos Auto 1.5 % 7 Unknown COMPLETE BLOOD COUNT 8139689 Baso Auto 0.4 % 7 Unknown COMPLETE BLOOD COUNT 2639330 Neutrophil Abs 5.45 10e9/L Unknown COMPLETE BLOOD COUNT 2041254 Lymphocyte Abs 0.67 10e9/L Unknown COMPLETE BLOOD COUNT 7999482 Monocyte Abs 0.55 10e9/L 11/24 Unknown COMPLETE BLOOD COUNT 7748664 Eosinophil Abs 0.10 10e9/L Unknown COMPLETE BLOOD COUNT 6245839 RDW-SD 44.1 fL 7 Unknown COMPLETE BLOOD COUNT 5229271 Basophil Abs 0.03 10e9/L 11/24 Unknown COMPLETE BLOOD COUNT 4576958 WBC 7.6 10e9/L 12/13/19 17 Unknown COMPLETE BLOOD COUNT 6391207 RBC 3.71 10e12/L 2016 Unknown COMPLETE BLOOD COUNT 2189059 HEMOGLOBIN 8.0 g/dL 12/13/19 17 Unknown COMPLETE BLOOD COUNT 8982988 HEMATOCRIT 27.3 % 12/13/19 17 Unknown COMPLETE BLOOD COUNT 3728975 MCV 73.6 fL 7 Unknown COMPLETE BLOOD COUNT 7827982 MCH 21.6 pg 7 Unknown COMPLETE BLOOD COUNT 5479832 MCHC 29.3 g/dL 7 Unknown COMPLETE BLOOD COUNT 4792264 PLATELET COUNT 330 10e9/L Unknown COMPLETE BLOOD COUNT 2039404 Mean Plt Volume 9.7 fL Unknown COMPLETE BLOOD COUNT 8602195 Neut Auto 73.2 % 7 Unknown COMPLETE BLOOD COUNT 4025542 Lymph Auto 14.5 % 12/13/19 17 Unknown COMPLETE BLOOD COUNT 7506296 [place] Auto 10.5 % 7 Unknown COMPLETE BLOOD COUNT 1858617 RDW 17.3 % 7 Unknown COMPLETE BLOOD COUNT 3330820 Eos Auto 1.3 % 7 Unknown COMPLETE BLOOD COUNT 1902856 Baso Auto 0.5 % 7 Unknown COMPLETE BLOOD COUNT 9871319 Neutrophil Abs 5.56 10e9/L Unknown COMPLETE BLOOD COUNT 9850042 Lymphocyte Abs 1.10 10e9/L Unknown COMPLETE BLOOD COUNT 3900389 Monocyte Abs 0.80 10e9/L 11/23 Unknown COMPLETE BLOOD COUNT 9955600 Eosinophil Abs 0.10 10e9/L Unknown COMPLETE BLOOD COUNT 1561449 RDW-SD 45.2 fL 7 Unknown COMPLETE BLOOD COUNT 8201448 Basophil Abs 0.04 10e9/L 11/23 Unknown IRON 45157 Iron 69 ug/dL 03/09/2016 Unknown VITAMIN B 12 86987 VITAMIN B12 311 pg/mL 03/09/2016 Unkn own MEAN GLUC 3896688 Mean Glucose 260 mg/dL 03/07/2016 Unknow n GLYCOSYLATED HEMOGLOBIN TEST 83487 Hgb A1c 13608-9 10.7 % 0 03/07/2016 Unknown COMPREHENSIVE METABOLIC 12868 AST 14 U/L 2015 Unknown COMPREHENSIVE METABOLIC 22794 ALT 21 U/L 2015 Unknown COMPREHENSIVE METABOLIC 84688 BUN 27 mg/dL 2015 Unknown COMPREHENSIVE METABOLIC 92238 ALBUMIN 4.5 g/dL 2015 Unknown COMPREHENSIVE METABOLIC 27897 CHLORIDE 101 mmol/L 03/06 Unknown COMPREHENSIVE METABOLIC 33159 Bili Total 0.4 mg/dL 03/06 Unknown COMPREHENSIVE METABOLIC 90179 ALK PHOS 49 U/L 2015 Unknown COMPREHENSIVE METABOLIC 67162 SODIUM 136 mmol/L 03/06 Unknown COMPREHENSIVE METABOLIC 81664 CREATININE 1.16 mg/dL 02/22 Unknown COMPREHENSIVE METABOLIC 61490 CALCIUM 9.9 mg/dL 2015 Unknown COMPREHENSIVE METABOLIC 36879 POTASSIUM 4.5 mmol/L 03/06 Unknown COMPREHENSIVE METABOLIC 39503 Total Protein 6.7 g/dL Unknown COMPREHENSIVE METABOLIC 34685 Glucose 245 mg/dL 2015 Unknown COMPREHENSIVE METABOLIC 31261 Bicarbonate 24 mmol/L 02/22 Unknown COMPREHENSIVE METABOLIC 76118 AGAP 11 mmol/L 2015 Unknown THYROID STIMULATING HORMONE 44835 TSH 0.775 uIU/mL 03/06/2016 Unknown TESTOSTERONE TOTAL 02240 Testos Total 96 ng/dL 03/06/20 16 Unknown LIPID GROUP 91393 Cholesterol 146 mg/dL 03/06/2016 Unkno wn LIPID GROUP 78001 Triglyceride 249 mg/dL 03/06/2016 Unkn own LIPID GROUP 72488 HDL CHOLESTEROL 46 mg/dL 03/06/2016 U nknown LIPID GROUP 31467 Chol/HDL Ratio 3.17 ratio 03/06/2016 U nknown LIPID GROUP 44889 NON-HDL Chol 100 mg/dL 03/06/2016 Unkn own LIPID GROUP 10094 LDL Cholesterol 50 mg/dL 03/06/2016 U nknown COMPLETE BLOOD COUNT 1770146 WBC 11.2 10e9/L 016 Unknown COMPLETE BLOOD COUNT 9412791 RBC 3.94 10e12/L 2015 Unknown COMPLETE BLOOD COUNT 4539074 HEMOGLOBIN 11.4 g/dL 03/06/20 16 Unknown COMPLETE BLOOD COUNT 9071995 HEMATOCRIT 33.7 % 03/06/20 16 Unknown COMPLETE BLOOD COUNT 5387982 MCV 85.5 fL 6 Unknown COMPLETE BLOOD COUNT 8006267 MCH 28.9 pg 6 Unknown COMPLETE BLOOD COUNT 3991600 MCHC 33.8 g/dL 6 Unknown COMPLETE BLOOD COUNT 9287942 PLATELET COUNT 204 10e9/L Unknown COMPLETE BLOOD COUNT 4765273 Mean Plt Volume 10.1 fL Unknown COMPLETE BLOOD COUNT 4366553 Neut Auto 85.9 % 6 Unknown COMPLETE BLOOD COUNT 3297428 Lymph Auto 6.8 % 03/06/20 16 Unknown COMPLETE BLOOD COUNT 1363935 [place] Auto 7.0 % 6 Unknown COMPLETE BLOOD COUNT 0334885 RDW 13.7 % 6 Unknown COMPLETE BLOOD COUNT 9718296 Eos Auto 0.1 % 6 Unknown COMPLETE BLOOD COUNT 7658827 Baso Auto 0.2 % 6 Unknown COMPLETE BLOOD COUNT 9001970 Neutrophil Abs 9.62 10e9/L Unknown COMPLETE BLOOD COUNT 6792564 Lymphoctye Abs 0.76 10e9/L Unknown COMPLETE BLOOD COUNT 8246650 Monocyte Abs 0.78 10e9/L 02/22 Unknown COMPLETE BLOOD COUNT 0550619 Eosinophil Abs 0.01 10e9/L Unknown COMPLETE BLOOD COUNT 6088778 RDW-SD 41.9 fL 6 Unknown COMPLETE BLOOD COUNT 2539517 Basophil Abs 0.02 10e9/L 02/22 Unknown FREE T4 01084 T4 Free 0.89 ng/dL 03/06/2016 Unknown GFR CALC 8899035 GFR Non Afr Amr >60 mL/min 03/06/2016 Un known GFR CALC 8632715 GFR Afr Amr >60 mL/min 03/06/2016 Unknow n PSA EQUIMOLAR JONATAN 38095 PSA Total 0.78 ng/mL 6 Unknown FREE T4 93139 FREE T4 0.90 NG/DL 07/01/2015 Unknown LIPID GROUP 65727 HDL TEST 44 MG/DL 07/01/2015 Unknown LIPID GROUP 33956 TRIG 303 MG/DL 07/01/2015 Unknown LIPID GROUP 77776 TEST LDL 56 MG/DL 07/01/2015 Unknown LIPID GROUP 06720 CHOL 161 MG/DL 07/01/2015 Unknown LIPID GROUP 63885 RCHOL/HDL 3.66 RATIO 07/01/2015 Unknow n LIPID GROUP 92606 NON-HDL CH 117 MG/DL 07/01/2015 Unknow n THYROID STIMULATING HORMONE 07181 TSH 1.783 uIU/ML 07/01/2015 Unknown COMPLETE BLOOD COUNT 8081678 WBC 6.6 10e9/L 07/01/20 15 Unknown COMPLETE BLOOD COUNT 0120211 RBC 4.18 10e12/L 2014 Unknown COMPLETE BLOOD COUNT 2616962 HGB 12.2 g/dL 5 Unknown COMPLETE BLOOD COUNT 1652760 HCT DET 37.0 % 5 Unknown COMPLETE BLOOD COUNT 0001930 MCV 88.5 fL 5 Unknown COMPLETE BLOOD COUNT 3646688 MCH 29.2 pg 5 Unknown COMPLETE BLOOD COUNT 1016581 MCHC 33.0 g/dL 5 Unknown COMPLETE BLOOD COUNT 0686869 PLT 224 10e9/L 07/01/20 15 Unknown COMPLETE BLOOD COUNT 4682651 MPV 10.4 fL 5 Unknown COMPLETE BLOOD COUNT 1093458 SUSIE % 72.6 % 5 Unknown COMPLETE BLOOD COUNT 3501036 LY % 14.1 % 5 Unknown COMPLETE BLOOD COUNT 8208625 MON % 10.2 % 5 Unknown COMPLETE BLOOD COUNT 9077328 EOS % 2.6 % 5 Unknown COMPLETE BLOOD COUNT 8699556 BASO % 0.5 % 5 Unknown COMPLETE BLOOD COUNT 1553790 RDW 14.1 % 5 Unknown COMPLETE BLOOD COUNT 3401443 ABS SUSIE 4.79 10e9/L 015 Unknown COMPLETE BLOOD COUNT 3416302 ABS LYMPH 0.93 10e9/L 015 Unknown COMPLETE BLOOD COUNT 0670520 ABS MONO 0.67 10e9/L 015 Unknown COMPLETE BLOOD COUNT 7311305 ABS EOS 0.17 10e9/L 015 Unknown COMPLETE BLOOD COUNT 7810719 ABS BASO 0.03 10e9/L 015 Unknown COMPLETE BLOOD COUNT 1589943 RDW-SD 43.9 fL 5 Unknown PSA EQUIMOLAR JONATAN 00729 PSA EQ 0.73 NG/ML 5 Unknown COMPREHENSIVE METABOLIC 55819 AST 24 U/L 2014 Unknown COMPREHENSIVE METABOLIC 33110 ALT 26 IU/L 2014 Unknown COMPREHENSIVE METABOLIC 27291 BUN 26 MG/DL 2014 Unknown COMPREHENSIVE METABOLIC 57029 ALBUMIN 4.6 GM/DL 2014 Unknown COMPREHENSIVE METABOLIC 62418 CHLORIDE 102 MMOL/L 06/01 Unknown COMPREHENSIVE METABOLIC 38882 BILI TOT 0.5 MG/DL 2014 Unknown COMPREHENSIVE METABOLIC 92722 ALK PHOS 56 U/L 2014 Unknown COMPREHENSIVE METABOLIC 72219 SODIUM 136 MMOL/L 06/01 Unknown COMPREHENSIVE METABOLIC 80640 CREATININE 1.16 MG/DL 04/2015 Unknown COMPREHENSIVE METABOLIC 84594 CALCIUM 9.8 MG/DL 2014 Unknown COMPREHENSIVE METABOLIC 35961 POTASSIUM 4.6 MMOL/L 06/01 Unknown COMPREHENSIVE METABOLIC 75829 PROT TOT 7.4 GM/DL 2014 Unknown COMPREHENSIVE METABOLIC 66716 Glucose 223 MG/DL 2014 Unknown COMPREHENSIVE METABOLIC 44498 BICARB 27 MMOL/L 2014 Unknown COMPREHENSIVE METABOLIC 20247 ANION GAP 7 MEQ/L 2014 Unknown GFR CALC 9245932 GFR AA >60 ML/MIN 06/01/2015 Unknown GFR CALC 7183003 GFR NON-AA >60 ML/MIN 06/01/2015 Unknown GLYCOSYLATED HEMOGLOBIN TEST 14416 A1C HPLC 67901-9 8.9 % 0 06/01/2015 Unknown GFR CALC 6454776 GFR AA >60 ML/MIN 02/25/2015 Unknown GFR CALC 7732904 GFR NON-AA >60 ML/MIN 02/25/2015 Unknown COMPREHENSIVE METABOLIC 64200 AST 24 U/L 2014 Unknown COMPREHENSIVE METABOLIC 55115 ALT 25 IU/L 2014 Unknown COMPREHENSIVE METABOLIC 17971 BUN 14 MG/DL 2014 Unknown COMPREHENSIVE METABOLIC 32658 ALBUMIN 4.5 GM/DL 2014 Unknown COMPREHENSIVE METABOLIC 54107 CHLORIDE 99 MMOL/L 2014 Unknown COMPREHENSIVE METABOLIC 49934 BILI TOT 0.5 MG/DL 2014 Unknown COMPREHENSIVE METABOLIC 17674 ALK PHOS 48 U/L 2014 Unknown COMPREHENSIVE METABOLIC 96867 SODIUM 136 MMOL/L 02/25 Unknown COMPREHENSIVE METABOLIC 11194 CREATININE 0.97 MG/DL 12/2014 Unknown COMPREHENSIVE METABOLIC 18215 CALCIUM 9.9 MG/DL 2014 Unknown COMPREHENSIVE METABOLIC 93842 POTASSIUM 4.4 MMOL/L 02/25 Unknown COMPREHENSIVE METABOLIC 44590 PROT TOT 7.1 GM/DL 2014 Unknown COMPREHENSIVE METABOLIC 86843 Glucose 171 MG/DL 2014 Unknown COMPREHENSIVE METABOLIC 10772 BICARB 25 MMOL/L 2014 Unknown COMPREHENSIVE METABOLIC 42027 ANION GAP 12 MEQ/L 2014 Unknown PROTEIN/CREAT URINE WITH RATIO 84741|07843 PROT R U 19 MG/D L 08/27/2014 Unknown PROTEIN/CREAT URINE WITH RATIO 39415|72946 CREAT R U 111 MG/ DL 08/27/2014 Unknown PROTEIN/CREAT URINE WITH RATIO 18931|29777 XRATIO P/C 171 MG /G 08/27/2014 Unknown MICROALBUMIN URINE RANDOM 57807 MICRL MG/L 34.7 MG/L 12/2013 Unknown MICROALBUMIN URINE RANDOM 53120 XM.ALB/CRE 32.7 MG/GCR 1 10/28/2013 Unknown MICROALBUMIN URINE RANDOM 56066 CREAT MG/D 106 MG/DL 12/2013 Unknown MICROALBUMIN URINE RANDOM 62881 CRE/100 1.06 G/L 12/2013 Unknown COMPLETE BLOOD COUNT [id number] WBC 7.1 10e9/L 08/05/20 14 Unknown COMPLETE BLOOD COUNT [id number] RBC 4.35 10e12/L 2013 Unknown COMPLETE BLOOD COUNT [id number] HGB 12.9 g/dL 4 Unknown COMPLETE BLOOD COUNT [id number] HCT DET 39.4 % 4 Unknown COMPLETE BLOOD COUNT [id number] MCV 90.6 fL 4 Unknown COMPLETE BLOOD COUNT [id number] MCH 29.7 pg 4 Unknown COMPLETE BLOOD COUNT [id number] MCHC 32.7 g/dL 4 Unknown COMPLETE BLOOD COUNT 9791972 PLT 240 10e9/L 08/05/20 14 Unknown COMPLETE BLOOD COUNT [id number] MPV 10.3 fL 4 Unknown COMPLETE BLOOD COUNT [id number] SUSIE % 70.0 % 4 Unknown COMPLETE BLOOD COUNT [id number] LY % 16.4 % 4 Unknown COMPLETE BLOOD COUNT 7100806 MON % 9.2 % 4 Unknown COMPLETE BLOOD COUNT [id number] EOS % 3.8 % 4 Unknown COMPLETE BLOOD COUNT [id number] BASO % 0.6 % 4 Unknown COMPLETE BLOOD COUNT [id number] RDW 13.4 % 4 Unknown COMPLETE BLOOD COUNT [id number] ABS SUSIE 4.97 10e9/L 014 Unknown COMPLETE BLOOD COUNT [id number] ABS LYMPH 1.16 10e9/L 014 Unknown COMPLETE BLOOD COUNT [id number] ABS MONO 0.65 10e9/L 014 Unknown COMPLETE BLOOD COUNT [id number] ABS EOS 0.27 10e9/L 014 Unknown COMPLETE BLOOD COUNT [id number] ABS BASO 0.04 10e9/L 014 Unknown COMPLETE BLOOD COUNT [id number] RDW-SD 43.3 fL 4 Unknown FREE T4 68988 FREE T4 1.02 NG/DL 08/05/2014 Unknown GFR CALC [id number] GFR AA >60 ML/MIN 08/05/2014 Unknown GFR CALC [id number] GFR NON-AA >60 ML/MIN 08/05/2014 Unknown GLYCOSYLATED HEMOGLOBIN TEST 78937 A1C HPLC 25230-5 7.7 % 1 10/05/2013 Unknown COMPREHENSIVE METABOLIC 19152 AST 19 U/L 2013 Unknown COMPREHENSIVE METABOLIC 85420 ALT 21 IU/L 2013 Unknown COMPREHENSIVE METABOLIC 31237 BUN 25 MG/DL 2013 Unknown COMPREHENSIVE METABOLIC 58344 ALBUMIN 4.6 GM/DL 2013 Unknown COMPREHENSIVE METABOLIC 17653 CHLORIDE 103 MMOL/L 08/05 Unknown COMPREHENSIVE METABOLIC 67562 BILI TOT 0.4 MG/DL 2013 Unknown COMPREHENSIVE METABOLIC 16726 ALK PHOS 45 U/L 2013 Unknown COMPREHENSIVE METABOLIC 49773 SODIUM 138 MMOL/L 08/05 Unknown COMPREHENSIVE METABOLIC 42622 CREATININE 1.01 MG/DL 07/25 Unknown COMPREHENSIVE METABOLIC 36607 CALCIUM 9.8 MG/DL 2013 Unknown COMPREHENSIVE METABOLIC 97215 POTASSIUM 4.7 MMOL/L 08/05 Unknown COMPREHENSIVE METABOLIC 01105 PROT TOT 7.0 GM/DL 2013 Unknown COMPREHENSIVE METABOLIC 28783 Glucose 145 MG/DL 2013 Unknown COMPREHENSIVE METABOLIC 80052 BICARB 27 MMOL/L 2013 Unknown COMPREHENSIVE METABOLIC 73939 ANION GAP 8 MEQ/L 2013 Unknown THYROID STIMULATING HORMONE 44897 TSH 1.922 uIU/ML 08/05/2014 Unknown LIPID GROUP 79901 HDL TEST 47 MG/DL 08/05/2014 Unknown LIPID GROUP 08041 TRIG 224 MG/DL 08/05/2014 Unknown LIPID GROUP 36391 TEST LDL 125 MG/DL 08/05/2014 Unknown LIPID GROUP 33994 CHOL 217 MG/DL 08/05/2014 Unknown LIPID GROUP 55257 RCHOL/HDL 4.62 RATIO 08/05/2014 Unknow n LIPID GROUP 71370 NON-HDL CH 170 MG/DL 08/05/2014 Unknow n MYCOPLASMA ANTIBODY, IFA [id number] MYCO G IFA 1:256 03/24 Unknown MYCOPLASMA ANTIBODY, IFA [id number] MYCO M IFA <1:10 03/24 Unknown MYCOPLASMA ANTIBODY, IFA [id number] MYCO INTER SEE BELO 03/24 Unknown COMPLETE BLOOD COUNT [id number] WBC 8.3 10e9/L 04/09/20 13 Unknown COMPLETE BLOOD COUNT [id number] RBC 4.61 10e12/L 2012 Unknown COMPLETE BLOOD COUNT [id number] HGB 13.9 g/dL 3 Unknown COMPLETE BLOOD COUNT [id number] HCT DET 41.2 % 3 Unknown COMPLETE BLOOD COUNT [id number] MCV 89.4 fL 3 Unknown COMPLETE BLOOD COUNT [id number] MCH 30.2 pg 3 Unknown COMPLETE BLOOD COUNT 7243418 MCHC 33.7 g/dL 3 Unknown COMPLETE BLOOD COUNT [id number] PLT 249 10e9/L 04/09/20 13 Unknown COMPLETE BLOOD COUNT [id number] MPV 9.8 fL 3 Unknown COMPLETE BLOOD COUNT [id number] SUSIE % 65.9 % 3 Unknown COMPLETE BLOOD COUNT [id number] LY % 19.8 % 3 Unknown COMPLETE BLOOD COUNT [id number] MON % 10.8 % 3 Unknown COMPLETE BLOOD COUNT [id number] EOS % 3.0 % 3 Unknown COMPLETE BLOOD COUNT [id number] BASO % 0.5 % 3 Unknown COMPLETE BLOOD COUNT 2392387 RDW 14.0 % 3 Unknown COMPLETE BLOOD COUNT [id number] ABS SUSIE 5.47 10e9/L 013 Unknown COMPLETE BLOOD COUNT [id number] ABS LYMPH 1.64 10e9/L 013 Unknown COMPLETE BLOOD COUNT [id number] ABS MONO 0.90 10e9/L 013 Unknown COMPLETE BLOOD COUNT [id number] ABS EOS 0.25 10e9/L 013 Unknown COMPLETE BLOOD COUNT [id number] ABS BASO 0.04 10e9/L 013 Unknown COMPLETE BLOOD COUNT 4129257 RDW-SD 45.0 fL 3 Unknown URIC ACID 79363 URIC ACID 5.3 MG/DL 02/12/2013 Unknown FREE T4 89469 FREE T4 1.09 NG/DL 02/11/2013 Unknown COMPLETE BLOOD COUNT [id number] WBC 6.3 10e9/L 02/12/20 13 Unknown COMPLETE BLOOD COUNT [id number] RBC 4.29 10e12/L 2012 Unknown COMPLETE BLOOD COUNT [id number] HGB 13.1 g/dL 3 Unknown COMPLETE BLOOD COUNT [id number] HCT DET 39.7 % 3 Unknown COMPLETE BLOOD COUNT 1072377 MCV 92.5 fL 3 Unknown COMPLETE BLOOD COUNT [id number] MCH 30.5 pg 3 Unknown COMPLETE BLOOD COUNT 6200081 MCHC 33.0 g/dL 3 Unknown COMPLETE BLOOD COUNT [id number] PLT 247 10e9/L 02/12/20 13 Unknown COMPLETE BLOOD COUNT 6745073 MPV 10.0 fL 3 Unknown COMPLETE BLOOD COUNT 2646064 SUSIE % 73.4 % 3 Unknown COMPLETE BLOOD COUNT 1621812 LY % 13.5 % 3 Unknown COMPLETE BLOOD COUNT [id number] MON % 9.4 % 3 Unknown COMPLETE BLOOD COUNT 6284533 EOS % 2.9 % 3 Unknown COMPLETE BLOOD COUNT [id number] BASO % 0.8 % 3 Unknown COMPLETE BLOOD COUNT 5335747 RDW 13.8 % 3 Unknown COMPLETE BLOOD COUNT [id number] ABS SUSIE 4.62 10e9/L 013 Unknown COMPLETE BLOOD COUNT [id number] ABS LYMPH 0.85 10e9/L 013 Unknown COMPLETE BLOOD COUNT [id number] ABS MONO 0.59 10e9/L 013 Unknown COMPLETE BLOOD COUNT [id number] ABS EOS 0.18 10e9/L 013 Unknown COMPLETE BLOOD COUNT [id number] ABS BASO 0.05 10e9/L 013 Unknown COMPLETE BLOOD COUNT [id number] RDW-SD 45.7 fL 3 Unknown HEMOGLOBIN A1C (GLYCOSYLATED) 2599337 A1C HPLC 62680-5 7.5 % 02/11/2013 Unknown THYROID STIMULATING HORMONE 00175 TSH 1.466 uIU/ML 02/11/2013 Unknown VITAMIN B 12 FOLIC ACID 14505|15294 VIT B 12 625 PG/ML 01/23 Unknown VITAMIN B 12 FOLIC ACID 23524|79588 FOLIC ACID 15.6 NG/ML Unknown COMPREHENSIVE METABOLIC 13789 AST 18 U/L 2012 Unknown COMPREHENSIVE METABOLIC 10031 ALT 21 IU/L 2012 Unknown COMPREHENSIVE METABOLIC 08950 BUN 25 MG/DL 2012 Unknown COMPREHENSIVE METABOLIC 67978 ALBUMIN 4.6 GM/DL 2012 Unknown COMPREHENSIVE METABOLIC 99161 CHLORIDE 103 MMOL/L 02/11 Unknown COMPREHENSIVE METABOLIC 89656 BILI TOT 0.3 MG/DL 2012 Unknown COMPREHENSIVE METABOLIC 52170 ALK PHOS 53 U/L 2012 Unknown COMPREHENSIVE METABOLIC 92597 SODIUM 136 MMOL/L 02/11 Unknown COMPREHENSIVE METABOLIC 55135 CREATININE 1.16 MG/DL 01/23 Unknown COMPREHENSIVE METABOLIC 92229 CALCIUM 10.0 MG/DL 02/11 Unknown COMPREHENSIVE METABOLIC 08087 POTASSIUM 4.9 MMOL/L 02/11 Unknown COMPREHENSIVE METABOLIC 13123 PROT TOT 7.0 GM/DL 2012 Unknown COMPREHENSIVE METABOLIC 55503 Glucose 192 MG/DL 2012 Unknown COMPREHENSIVE METABOLIC 87937 BICARB 26 MMOL/L 2012 Unknown COMPREHENSIVE METABOLIC 71360 ANION GAP 7 MEQ/L 2012 Unknown GFR CALC 6175682 GFR AA >60 ML/MIN 02/11/2013 Unknown GFR CALC 3735639 GFR NON-AA >60 ML/MIN 02/11/2013 Unknown C-REACTIVE PROTEIN (CRP) QUANT 57557 CRP 2.7 MG/DL 02/11/2013 Unknown GFR CALC 9117119 GFR AA >60 ML/MIN 09/19/2012 Unknown GFR CALC 8659093 GFR NON-AA >60 ML/MIN 09/19/2012 Unknown HEMOGLOBIN A1C (GLYCOSYLATED) 7612047 A1C HPLC 99229-2 7.2 % 09/19/2012 Unknown COMPREHENSIVE METABOLIC 76481 AST 13 U/L 2011 Unknown COMPREHENSIVE METABOLIC 34928 ALT 17 IU/L 2011 Unknown COMPREHENSIVE METABOLIC 64658 BUN 25 MG/DL 2011 Unknown COMPREHENSIVE METABOLIC 91647 ALBUMIN 4.5 GM/DL 2011 Unknown COMPREHENSIVE METABOLIC 52962 CHLORIDE 104 MMOL/L 09/19 Unknown COMPREHENSIVE METABOLIC 89411 BILI TOT 0.3 MG/DL 2011 Unknown COMPREHENSIVE METABOLIC 45988 ALK PHOS 43 U/L 2011 Unknown COMPREHENSIVE METABOLIC 25545 SODIUM 139 MMOL/L 09/19 Unknown COMPREHENSIVE METABOLIC 59144 CREATININE 1.10 MG/DL 08/25 Unknown COMPREHENSIVE METABOLIC 62322 CALCIUM 9.8 MG/DL 2011 Unknown COMPREHENSIVE METABOLIC 02193 POTASSIUM 4.8 MMOL/L 09/19 Unknown COMPREHENSIVE METABOLIC 55425 PROT TOT 6.5 GM/DL 2011 Unknown COMPREHENSIVE METABOLIC 70420 Glucose 148 MG/DL 2011 Unknown COMPREHENSIVE METABOLIC 62890 BICARB 25 MMOL/L 2011 Unknown COMPREHENSIVE METABOLIC 07519 ANION GAP 10 MEQ/L 2011 Unknown LIPID GROUP 06446 HDL TEST 44 MG/DL 09/19/2012 Unknown LIPID GROUP 00026 TRIG 318 MG/DL 09/19/2012 Unknown LIPID GROUP 83610 TEST LDL 100 MG/DL 09/19/2012 Unknown LIPID GROUP 95267 CHOL 208 MG/DL 09/19/2012 Unknown LIPID GROUP 14913 RCHOL/HDL 4.73 RATIO 09/19/2012 Unknow n FREE T4 94365 FREE T4 0.87 NG/DL 05/06/2012 Unknown GLYCOSYLATED HEMOGLOBIN TEST 73685 A1C HPLC 71033-8 6.4 % 0 05/06/2012 Unknown LIPID GROUP 31416 HDL TEST 44 MG/DL 05/06/2012 Unknown LIPID GROUP 77132 TRIG 177 MG/DL 05/06/2012 Unknown LIPID GROUP 79575 TEST LDL 113 MG/DL 05/06/2012 Unknown LIPID GROUP 49034 CHOL 192 MG/DL 05/06/2012 Unknown LIPID GROUP 85628 RCHOL/HDL 4.36 RATIO 05/06/2012 Unknow n THYROID STIMULATING HORMONE 42148 TSH 1.151 uIU/ML 05/06/2012 Unknown COMPLETE BLOOD COUNT 64815 WBC 7.8 10e9/L 05/06/20 12 Unknown COMPLETE BLOOD COUNT 62555 RBC 4.31 10e12/L 2011 Unknown COMPLETE BLOOD COUNT 39414 HGB 12.8 g/dL 2 Unknown COMPLETE BLOOD COUNT 84634 HCT DET 39.1 % 2 Unknown COMPLETE BLOOD COUNT 86963 MCV 90.7 fL 2 Unknown COMPLETE BLOOD COUNT 90001 MCH 29.7 pg 2 Unknown COMPLETE BLOOD COUNT 72516 MCHC 32.7 g/dL 2 Unknown COMPLETE BLOOD COUNT 73086 PLT 207 10e9/L 05/06/20 12 Unknown COMPLETE BLOOD COUNT 09745 MPV 10.2 fL 2 Unknown COMPLETE BLOOD COUNT 69432 SUSIE % 74.2 % 2 Unknown COMPLETE BLOOD COUNT 79640 LY % 12.8 % 2 Unknown COMPLETE BLOOD COUNT 74836 MON % 11.0 % 2 Unknown COMPLETE BLOOD COUNT 26435 EOS % 1.7 % 2 Unknown COMPLETE BLOOD COUNT 06644 BASO % 0.3 % 2 Unknown COMPLETE BLOOD COUNT 70014 RDW 13.7 % 2 Unknown COMPLETE BLOOD COUNT 11352 ABS SUSIE 5.79 10e9/L 012 Unknown COMPLETE BLOOD COUNT 09795 ABS LYMPH 1.00 10e9/L 012 Unknown COMPLETE BLOOD COUNT 93948 ABS MONO 0.86 10e9/L 012 Unknown COMPLETE BLOOD COUNT 53170 ABS EOS 0.13 10e9/L 012 Unknown COMPLETE BLOOD COUNT 98567 ABS BASO 0.02 10e9/L 012 Unknown COMPLETE BLOOD COUNT 64173 RDW-SD 44.4 fL 2 Unknown COMPREHENSIVE METABOLIC 07860 AST 13 U/L 2011 Unknown COMPREHENSIVE METABOLIC 12242 ALT 14 IU/L 2011 Unknown COMPREHENSIVE METABOLIC 65479 BUN 17 MG/DL 2011 Unknown COMPREHENSIVE METABOLIC 83238 ALBUMIN 4.5 GM/DL 2011 Unknown COMPREHENSIVE METABOLIC 81262 CHLORIDE 101 MMOL/L 05/06 Unknown COMPREHENSIVE METABOLIC 82608 BILI TOT 0.5 MG/DL 2011 Unknown COMPREHENSIVE METABOLIC 49820 ALK PHOS 42 U/L 2011 Unknown COMPREHENSIVE METABOLIC 62237 SODIUM 141 MMOL/L 05/06 Unknown COMPREHENSIVE METABOLIC 27031 CREATININE 1.02 MG/DL 04/24 Unknown COMPREHENSIVE METABOLIC 50825 CALCIUM 9.7 MG/DL 2011 Unknown COMPREHENSIVE METABOLIC 77380 POTASSIUM 4.6 MMOL/L 05/06 Unknown COMPREHENSIVE METABOLIC 94145 PROT TOT 6.5 GM/DL 2011 Unknown COMPREHENSIVE METABOLIC 31367 Glucose 139 MG/DL 2011 Unknown COMPREHENSIVE METABOLIC 85615 BICARB 29 MMOL/L 2011 Unknown COMPREHENSIVE METABOLIC 26531 ANION GAP 11 MEQ/L 2011 Unknown GFR CALC 5476149 GFR AA >60 ML/MIN 05/06/2012 Unknown GFR CALC 1815599 GFR NON-AA 54.0L ML/MIN 05/06/2012 Unkno wn GLYCOSYLATED HEMOGLOBIN TEST 08996 A1C HPLC 87025-9 6.6 % 1 09/30/2010 Unknown FREE T4 94749 FREE T4 1.00 NG/DL 07/26/2011 Unknown LIPID GROUP 81557 HDL TEST 40 MG/DL 07/26/2011 Unknown LIPID GROUP 53810 TRIG 136 MG/DL 07/26/2011 Unknown LIPID GROUP 28968 TEST LDL 126 MG/DL 07/26/2011 Unknown LIPID GROUP 47329 CHOL 193 MG/DL 07/26/2011 Unknown LIPID GROUP 93409 RCHOL/HDL 4.83 RATIO 07/26/2011 Unknow n COMPREHENSIVE METABOLIC 97871 AST 15 U/L 2010 Unknown COMPREHENSIVE METABOLIC 08123 ALT 13 IU/L 2010 Unknown COMPREHENSIVE METABOLIC 77277 BUN 17 MG/DL 2010 Unknown COMPREHENSIVE METABOLIC 41235 ALBUMIN 4.4 GM/DL 2010 Unknown COMPREHENSIVE METABOLIC 98291 CHLORIDE 102 MMOL/L 07/26 Unknown COMPREHENSIVE METABOLIC 22156 BILI TOT 0.5 MG/DL 2010 Unknown COMPREHENSIVE METABOLIC 50422 ALK PHOS 54 U/L 2010 Unknown COMPREHENSIVE METABOLIC 56595 SODIUM 138 MMOL/L 07/26 Unknown COMPREHENSIVE METABOLIC 58398 CREATININE 0.95 MG/DL 10/2010 Unknown COMPREHENSIVE METABOLIC 46043 CALCIUM 9.3 MG/DL 2010 Unknown COMPREHENSIVE METABOLIC 19325 POTASSIUM 4.3 MMOL/L 07/26 Unknown COMPREHENSIVE METABOLIC 31834 PROT TOT 6.7 GM/DL 2010 Unknown COMPREHENSIVE METABOLIC 50389 Glucose 116 MG/DL 2010 Unknown COMPREHENSIVE METABOLIC 77027 BICARB 28 MMOL/L 2010 Unknown COMPREHENSIVE METABOLIC 14938 ANION GAP 8 MEQ/L 2010 Unknown PSA EQUIMOLAR JONATAN 09112 PSA EQ 1.01 NG/ML 1 Unknown COMPLETE BLOOD COUNT 89380 WBC 6.4 10e9/L 07/26/20 11 Unknown COMPLETE BLOOD COUNT 18421 RBC 4.43 10e12/L 2010 Unknown COMPLETE BLOOD COUNT 05501 HGB 13.2 g/dL 1 Unknown COMPLETE BLOOD COUNT 30956 HCT DET 39.3 % 1 Unknown COMPLETE BLOOD COUNT 48407 MCV 88.7 fL 1 Unknown COMPLETE BLOOD COUNT 49675 MCH 29.8 pg 1 Unknown COMPLETE BLOOD COUNT 15965 MCHC 33.6 g/dL 1 Unknown COMPLETE BLOOD COUNT 75862 PLT 226 10e9/L 07/26/20 11 Unknown COMPLETE BLOOD COUNT 30496 MPV 9.9 fL 1 Unknown COMPLETE BLOOD COUNT 46139 SUSIE % 65.4 % 1 Unknown COMPLETE BLOOD COUNT 92040 LY % 19.7 % 1 Unknown COMPLETE BLOOD COUNT 75390 MON % 10.8 % 1 Unknown COMPLETE BLOOD COUNT 82119 EOS % 3.6 % 1 Unknown COMPLETE BLOOD COUNT 52974 BASO % 0.5 % 1 Unknown COMPLETE BLOOD COUNT 47153 RDW 13.2 % 1 Unknown COMPLETE BLOOD COUNT 32006 ABS SUSIE 4.19 10e9/L 011 Unknown COMPLETE BLOOD COUNT 52893 ABS LYMPH 1.26 10e9/L 011 Unknown COMPLETE BLOOD COUNT 07143 ABS MONO 0.69 10e9/L 011 Unknown COMPLETE BLOOD COUNT 69720 ABS EOS 0.23 10e9/L 011 Unknown COMPLETE BLOOD COUNT 79504 ABS BASO 0.03 10e9/L 011 Unknown COMPLETE BLOOD COUNT 87853 RDW-SD 41.7 fL 1 Unknown THYROID STIMULATING HORMONE 62138 TSH 1.345 uIU/ML 07/26/2011 Unknown GFR CALC 3584938 GFR AA >60 ML/MIN 07/26/2011 Unknown GFR CALC 8031891 GFR NON-AA >60 ML/MIN 07/26/2011 Unknown BRAIN NATRIURETIC PEPTIDE(BNP) 01122 BRAIN PEP 23 pg/mL 01/19/2011 Unknown CANCEL 6075111 CANCEL FOOTNOTE 01/18/2011 Unknown TESTOSTERONE TOTAL 28004 TESTOS TO 138 NG/DL 12/19/2010 Unknown COMPLETE BLOOD COUNT 76065 WBC 8.4 10e9/L 12/08/19 11 Unknown COMPLETE BLOOD COUNT 71066 RBC 4.40 10e12/L 2010 Unknown COMPLETE BLOOD COUNT 67632 HGB 13.3 g/dL 1 Unknown COMPLETE BLOOD COUNT 20808 HCT DET 39.8 % 1 Unknown COMPLETE BLOOD COUNT 76630 MCV 90.5 fL 1 Unknown COMPLETE BLOOD COUNT 71616 MCH 30.2 pg 1 Unknown COMPLETE BLOOD COUNT 31633 MCHC 33.4 g/dL 1 Unknown COMPLETE BLOOD COUNT 58879 PLT 201 10e9/L 12/08/19 11 Unknown COMPLETE BLOOD COUNT 31884 MPV 10.6 fL 1 Unknown COMPLETE BLOOD COUNT 35769 SUSIE % 72.5 % 1 Unknown COMPLETE BLOOD COUNT 46818 LY % 14.8 % 1 Unknown COMPLETE BLOOD COUNT 23228 MON % 10.6 % 1 Unknown COMPLETE BLOOD COUNT 71839 EOS % 1.7 % 1 Unknown COMPLETE BLOOD COUNT 50320 BASO % 0.4 % 1 Unknown COMPLETE BLOOD COUNT 30244 RDW 13.7 % 1 Unknown COMPLETE BLOOD COUNT 24234 ABS SUSIE 6.09 10e9/L 011 Unknown COMPLETE BLOOD COUNT 46790 ABS LYMPH 1.24 10e9/L 011 Unknown COMPLETE BLOOD COUNT 80870 ABS MONO 0.89 10e9/L 011 Unknown COMPLETE BLOOD COUNT 46192 ABS EOS 0.14 10e9/L 011 Unknown COMPLETE BLOOD COUNT 50938 ABS BASO 0.03 10e9/L 011 Unknown COMPLETE BLOOD COUNT 10500 RDW-SD 44.0 fL 1 Unknown LIPID GROUP 87281 HDL TEST 40 MG/DL 12/07/2010 Unknown LIPID GROUP 83284 TRIG 383 MG/DL 12/07/2010 Unknown LIPID GROUP 65897 TEST LDL 82 MG/DL 12/07/2010 Unknown LIPID GROUP 06179 CHOL 199 MG/DL 12/07/2010 Unknown LIPID GROUP 17138 RCHOL/HDL 4.98 RATIO 12/07/2010 Unknow n GFR CALC 7018614 GFR AA >60 ML/MIN 12/07/2010 Unknown GFR CALC 2193491 GFR NON-AA >60 ML/MIN 12/07/2010 Unknown COMPREHENSIVE METABOLIC 46054 AST 29 U/L 2010 Unknown COMPREHENSIVE METABOLIC 42162 ALT 39 IU/L 2010 Unknown COMPREHENSIVE METABOLIC 74854 BUN 17 MG/DL 2010 Unknown COMPREHENSIVE METABOLIC 06513 ALBUMIN 4.9 GM/DL 2010 Unknown COMPREHENSIVE METABOLIC 24658 CHLORIDE 100 MMOL/L 12/07 Unknown COMPREHENSIVE METABOLIC 42418 BILI TOT 0.3 MG/DL 2010 Unknown COMPREHENSIVE METABOLIC 61138 ALK PHOS 53 U/L 2010 Unknown COMPREHENSIVE METABOLIC 56642 SODIUM 137 MMOL/L 12/07 Unknown COMPREHENSIVE METABOLIC 28369 CREATININE 0.98 MG/DL 11/22 Unknown COMPREHENSIVE METABOLIC 93857 CALCIUM 9.5 MG/DL 2010 Unknown COMPREHENSIVE METABOLIC 45027 POTASSIUM 4.3 MMOL/L 12/07 Unknown COMPREHENSIVE METABOLIC 29794 PROT TOT 6.6 GM/DL 2010 Unknown COMPREHENSIVE METABOLIC 85525 Glucose 176 MG/DL 2010 Unknown COMPREHENSIVE METABOLIC 57782 BICARB 28 MMOL/L 2010 Unknown COMPREHENSIVE METABOLIC 44724 ANION GAP 9 MEQ/L 2010 Unknown PSA EQUIMOLAR JONATAN 41949 PSA EQ 0.65 NG/ML 1 Unknown HEMOGLOBIN A1C (GLYCOSYLATED) 28517 A1C HPLC 80288-5 6.9 % 12/07/2010 Unknown Procedures Procedure Codes Date FLU VACC PRSV FREE INC ANTIG 65 AND OLDER CPT-4: 20408 08/07/2019 FLU VACC PRSV FREE INC ANTIG 65 AND OLDER CPT-4: 58860 08/07/2019 ADMIN INFLUENZA VIRUS VAC CPT-4: G0008 08/07/2019 THER/PROPH/DIAG INJ SC/IM CPT-4: 63820 07/14/2019 METHYLPREDNISOLONE INJECTION CPT-4: J2930 07/14/2019 ROUTINE VENIPUNCTURE CPT-4: 57089 06/17/2019 ASSAY THYROID STIM HORMONE CPT-4: 44108 06/17/2019 COMPREHEN METABOLIC PANEL CPT-4: 08260 06/17/2019 COMPLETE CBC W/AUTO DIFF WBC CPT-4: 41391 06/17/2019 ASSAY OF IRON CPT-4: 04677 06/17/2019 VITAMIN B-12 CPT-4: 72748 06/17/2019 RBC SED RATE AUTOMATED CPT-4: 97590 06/17/2019 THER/PROPH/DIAG INJ SC/IM CPT-4: 66122 06/10/2019 THER/PROPH/DIAG INJ SC/IM CPT-4: 12160 06/02/2019 THER/PROPH/DIAG INJ SC/IM CPT-4: 05909 05/27/2019 THER/PROPH/DIAG INJ SC/IM CPT-4: 06505 05/12/2019 ROUTINE VENIPUNCTURE CPT-4: 41127 05/08/2019 COMPREHEN METABOLIC PANEL CPT-4: 26652 05/08/2019 COMPLETE CBC W/AUTO DIFF WBC CPT-4: 27537 05/08/2019 A1C HPLC CPT-4: 90754 05/08/2019 VITAMIN D TOTAL (25 HYDROXY) CPT-4: 54903 05/08/2019 ASSAY OF IRON CPT-4: 65848 05/08/2019 ASSAY OF FERRITIN CPT-4: 74225 05/08/2019 VITAMIN B-12 CPT-4: 43523 05/08/2019 THER/PROPH/DIAG INJ SC/IM CPT-4: 43434 03/21/2019 METHYLPREDNISOLONE INJECTION CPT-4: J2930 03/21/2019 THER/PROPH/DIAG INJ SC/IM CPT-4: 91589 03/13/2019 METHYLPREDNISOLONE INJECTION CPT-4: J2930 03/13/2019 THER/PROPH/DIAG INJ SC/IM CPT-4: 45306 12/25/2018 METHYLPREDNISOLONE INJECTION CPT-4: J2930 12/25/2018 ROUTINE VENIPUNCTURE CPT-4: 82718 12/09/2018 ASSAY OF FREE THYROXINE CPT-4: 00860 12/09/2018 ASSAY THYROID STIM HORMONE CPT-4: 39833 12/09/2018 COMPREHEN METABOLIC PANEL CPT-4: 32971 12/09/2018 COMPLETE CBC W/AUTO DIFF WBC CPT-4: 86201 12/09/2018 LIPID PANEL CPT-4: 48969 12/09/2018 A1C HPLC CPT-4: 05126 12/09/2018 PRESCRIP TRANSMIT VIA ERX SY CPT-4: G8553 08/21/2018 PRESCRIP TRANSMIT VIA ERX SY CPT-4: G8553 08/07/2018 THER/PROPH/DIAG INJ SC/IM CPT-4: 57137 05/23/2018 METHYLPREDNISOLONE INJECTION CPT-4: J2930 05/23/2018 PRESCRIP TRANSMIT VIA ERX SY CPT-4: G8553 05/02/2018 THER/PROPH/DIAG INJ SC/IM CPT-4: 10523 04/29/2018 METHYLPREDNISOLONE INJECTION CPT-4: J2930 04/29/2018 DEXAMETHASONE SODIUM PHOS CPT-4: J1100 04/22/2018 THER/PROPH/DIAG INJ SC/IM CPT-4: 84249 04/22/2018 TRIAMCINOLONE ACET INJ NOS CPT-4: J3301 04/22/2018 PRESCRIP TRANSMIT VIA ERX SY CPT-4: G8553 04/22/2018 PRESCRIP TRANSMIT VIA ERX SY CPT-4: G8553 01/23/2018 URINALYSIS NONAUTO W/O SCOPE CPT-4: 99003 01/02/2018 URINE CULTURE/ COLONY COUNT CPT-4: 56005 01/02/2018 PRESCRIP TRANSMIT VIA ERX SY CPT-4: G8553 01/02/2018 PRESCRIP TRANSMIT VIA ERX SY CPT-4: G8553 12/28/2017 PRESCRIP TRANSMIT VIA ERX SY CPT-4: G8553 12/21/2017 CEFTRIAXONE SODIUM INJECTION CPT-4: J0696 12/17/2017 THER/PROPH/DIAG INJ SC/IM CPT-4: 69459 12/17/2017 THER/PROPH/DIAG INJ SC/IM CPT-4: 00719 12/17/2017 TRIAMCINOLONE ACET INJ NOS CPT-4: J3301 12/17/2017 PRESCRIP TRANSMIT VIA ERX SY CPT-4: G8553 12/17/2017 DRAIN/INJECT JOINT/BURSA CPT-4: 51982 12/11/2017 TRIAMCINOLONE ACET INJ NOS CPT-4: J3301 12/11/2017 DEXAMETHASONE SODIUM PHOS CPT-4: J1100 12/11/2017 DESTRUCT PREMALG LESION (Cryosurgery) CPT-4: 03714 PRESCRIP TRANSMIT VIA ERX SY CPT-4: G8553 10/17/2017 DEXAMETHASONE SODIUM PHOS CPT-4: J1100 08/02/2017 THER/PROPH/DIAG INJ SC/IM CPT-4: 63016 08/02/2017 TRIAMCINOLONE ACET INJ NOS CPT-4: J3301 08/02/2017 PRESCRIP TRANSMIT VIA ERX SY CPT-4: G8553 08/02/2017 PNEUMOCOCCAL VACC 23 OLIVIA IM CPT-4: 33583 07/24/2017 ADMIN PNEUMOCOCCAL VACCINE CPT-4: G0009 07/24/2017 ALBUTEROL NON-COMP UNIT CPT-4: J7613 07/02/2017 AIRWAY INHALATION TREATMENT CPT-4: 17141 07/02/2017 THER/PROPH/DIAG INJ SC/IM CPT-4: 51274 07/02/2017 METHYLPREDNISOLONE INJECTION CPT-4: J2930 07/02/2017 PRESCRIP TRANSMIT VIA ERX SY CPT-4: G8553 05/29/2017 ROUTINE VENIPUNCTURE CPT-4: 25517 04/17/2017 ASSAY OF IRON CPT-4: 51246 04/17/2017 VITAMIN B-12 CPT-4: 81195 04/17/2017 COMPREHEN METABOLIC PANEL CPT-4: 35169 04/17/2017 COMPLETE CBC W/AUTO DIFF WBC CPT-4: 64628 04/17/2017 ASSAY OF FERRITIN CPT-4: 52731 04/17/2017 ASSAY THYROID STIM HORMONE CPT-4: 24783 04/17/2017 A1C HPLC CPT-4: 89700 04/17/2017 DRAIN/INJECT JOINT/BURSA CPT-4: 45505 02/01/2017 TRIAMCINOLONE ACET INJ NOS CPT-4: J3301 02/01/2017 DEXAMETHASONE SODIUM PHOS CPT-4: J1100 02/01/2017 ROUTINE VENIPUNCTURE CPT-4: 00449 12/27/2016 COMPLETE CBC W/AUTO DIFF WBC CPT-4: 84361 12/27/2016 ROUTINE VENIPUNCTURE CPT-4: 29286 12/21/2016 COMPLETE CBC W/AUTO DIFF WBC CPT-4: 43121 12/21/2016 ROUTINE VENIPUNCTURE CPT-4: 85627 12/12/2016 COMPLETE CBC W/AUTO DIFF WBC CPT-4: 23145 12/12/2016 PRESCRIP TRANSMIT VIA ERX SY CPT-4: G8553 10/31/2016 PRESCRIP TRANSMIT VIA ERX SY CPT-4: G8553 10/03/2016 PRESCRIP TRANSMIT VIA ERX SY CPT-4: G8553 09/04/2016 DESTRUCT PREMALG LESION (Cryosurgery) CPT-4: 90490 DESTRUCT PREMALG LES 2-14 CPT-4: 27105 08/22/2016 PRESCRIP TRANSMIT VIA ERX SY CPT-4: G8553 08/10/2016 PRESCRIP TRANSMIT VIA ERX SY CPT-4: G8553 07/06/2016 FLU VACC PRSV FREE INC ANTIG 65 AND OLDER CPT-4: 70670 06/13/2016 PNEUMOCOCCAL VACC 13 OLIVIA IM CPT-4: 37698 06/13/2016 ADMIN INFLUENZA VIRUS VAC CPT-4: G0008 06/13/2016 ADMIN PNEUMOCOCCAL VACCINE CPT-4: G0009 06/13/2016 CERUM REMOVAL CPT-4: 45223 04/05/2016 PRESCRIP TRANSMIT VIA ERX SY CPT-4: G8553 04/03/2016 ROUTINE VENIPUNCTURE CPT-4: 03609 03/06/2016 ASSAY OF FREE THYROXINE CPT-4: 23719 03/06/2016 ASSAY THYROID STIM HORMONE CPT-4: 91248 03/06/2016 COMPREHEN METABOLIC PANEL CPT-4: 81023 03/06/2016 COMPLETE CBC W/AUTO DIFF WBC CPT-4: 65127 03/06/2016 LIPID PANEL CPT-4: 85433 03/06/2016 ASSAY OF PSA TOTAL CPT-4: 41704 03/06/2016 TESTOSTERONE TOTAL - MALE CPT-4: 32598 03/06/2016 A1C HPLC CPT-4: 63963 03/06/2016 ASSAY OF IRON CPT-4: 56539 03/06/2016 VITAMIN B-12 CPT-4: 10299 03/06/2016 INJ TENDON SHEATH/LIGAMENT CPT-4: 40100 02/17/2016 TRIAMCINOLONE ACET INJ NOS CPT-4: J3301 02/17/2016 DEXAMETHASONE SODIUM PHOS CPT-4: J1100 02/17/2016 PRESCRIP TRANSMIT VIA ERX SY CPT-4: G8553 01/31/2016 PRESCRIP TRANSMIT VIA ERX SY CPT-4: G8553 12/30/2015 PRESCRIP TRANSMIT VIA ERX SY CPT-4: G8553 12/06/2015 PRESCRIP TRANSMIT VIA ERX SY CPT-4: G8553 11/15/2015 PPPS, subseq visit CPT-4: G0439 10/05/2015 MICROALBUMIN QUANTITATIVE CPT-4: 18766 10/05/2015 PROTEIN/CREAT URINE WITH RATIO CPT-4: 94874|90763 6 ROUTINE VENIPUNCTURE CPT-4: 75399 07/01/2015 ASSAY OF FREE THYROXINE CPT-4: 22396 07/01/2015 ASSAY THYROID STIM HORMONE CPT-4: 82873 07/01/2015 COMPLETE CBC W/AUTO DIFF WBC CPT-4: 54943 07/01/2015 LIPID PANEL CPT-4: 75729 07/01/2015 ASSAY OF PSA TOTAL CPT-4: 65449 07/01/2015 AEROBIC WOUND CULTURE & STN CPT-4: 67315 06/28/2015 PRESCRIP TRANSMIT VIA ERX SY CPT-4: G8553 06/28/2015 AEROBIC WOUND CULTURE & STN CPT-4: 85202 06/03/2015 PRESCRIP TRANSMIT VIA ERX SY CPT-4: G8553 06/03/2015 ROUTINE VENIPUNCTURE CPT-4: 08809 06/01/2015 COMPREHEN METABOLIC PANEL CPT-4: 65264 06/01/2015 A1C HPLC CPT-4: 03270 06/01/2015 COMPREHEN METABOLIC PANEL CPT-4: 43255 02/25/2015 A1C HPLC CPT-4: 53083 02/25/2015 DESTRUCT PREMALG LESION (Cryosurgery) CPT-4: 24914 PROTEIN/CREAT URINE WITH RATIO CPT-4: 80875|66513 5 MICROALBUMIN QUANTITATIVE CPT-4: 33055 10/27/2014 INFLUENZA ASSAY W/OPTIC CPT-4: 80115 10/21/2014 PRESCRIP TRANSMIT VIA ERX SY CPT-4: G8553 10/06/2014 PRESCRIP TRANSMIT VIA ERX SY CPT-4: G8553 09/21/2014 PRESCRIP TRANSMIT VIA ERX SY CPT-4: G8553 09/02/2014 MICROALBUMIN QUANTITATIVE CPT-4: 83778 08/27/2014 PROTEIN/CREAT URINE WITH RATIO CPT-4: 47904|10025 4 PPPS, subseq visit CPT-4: G0439 08/10/2014 ROUTINE VENIPUNCTURE CPT-4: 24749 08/05/2014 ASSAY OF FREE THYROXINE CPT-4: 52227 08/05/2014 ASSAY THYROID STIM HORMONE CPT-4: 79133 08/05/2014 COMPREHEN METABOLIC PANEL CPT-4: 64849 08/05/2014 COMPLETE CBC W/AUTO DIFF WBC CPT-4: 96551 08/05/2014 LIPID PANEL CPT-4: 21937 08/05/2014 A1C HPLC CPT-4: 97642 08/05/2014 FLUZONE, 5ML (Medicare) CPT-4: Q2038 08/05/2014 ADMIN INFLUENZA VIRUS VAC CPT-4: G0008 08/05/2014 METHYLPREDNISOLONE 40 MG INJ CPT-4: J1030 12/16/2013 TRIAMCINOLONE ACET INJ NOS CPT-4: J3301 12/16/2013 DRAIN/INJECT JOINT/BURSA CPT-4: 35394 12/16/2013 PRESCRIP TRANSMIT VIA ERX SY CPT-4: G8553 10/09/2013 THER/PROPH/DIAG INJ SC/IM CPT-4: 45532 09/18/2013 METHYLPREDNISOLONE 40 MG INJ CPT-4: J1030 09/18/2013 TRIAMCINOLONE ACET INJ NOS CPT-4: J3301 09/18/2013 PRESCRIP TRANSMIT VIA ERX SY CPT-4: G8553 09/18/2013 PRESCRIP TRANSMIT VIA ERX SY CPT-4: G8553 08/13/2013 ROUTINE VENIPUNCTURE CPT-4: 03917 06/25/2013 ASSAY OF FREE THYROXINE CPT-4: 93030 06/25/2013 ASSAY THYROID STIM HORMONE CPT-4: 80502 06/25/2013 COMPREHEN METABOLIC PANEL CPT-4: 21784 06/25/2013 COMPLETE CBC W/AUTO DIFF WBC CPT-4: 57675 06/25/2013 LIPID PANEL CPT-4: 28357 06/25/2013 A1C GLYCOSYLATED HEMOGLOBIN TEST CPT-4: 24011 013 ROUTINE VENIPUNCTURE CPT-4: 47685 04/09/2013 COMPLETE CBC W/AUTO DIFF WBC CPT-4: 08231 04/09/2013 MYCOPLASMA ANTIBODY, IFA CPT-4: 35857X8 04/09/2013 ROUTINE VENIPUNCTURE CPT-4: 75191 02/11/2013 ASSAY OF FREE THYROXINE CPT-4: 57938 02/11/2013 ASSAY THYROID STIM HORMONE CPT-4: 45488 02/11/2013 COMPREHEN METABOLIC PANEL CPT-4: 66856 02/11/2013 COMPLETE CBC W/AUTO DIFF WBC CPT-4: 81284 02/11/2013 VITAMIN B 12 FOLIC ACID CPT-4: 65623|30247 02/11/2013 C-REACTIVE PROTEIN CPT-4: 23337 02/11/2013 A1C GLYCOSYLATED HEMOGLOBIN TEST CPT-4: 67766 013 ASSAY OF BLOOD/URIC ACID CPT-4: 55544 02/11/2013 CEFTRIAXONE SODIUM INJECTION CPT-4: J0696 01/31/2013 THER/PROPH/DIAG INJ SC/IM CPT-4: 62466 01/31/2013 THER/PROPH/DIAG INJ SC/IM CPT-4: 48651 01/31/2013 METHYLPREDNISOLONE 40 MG INJ CPT-4: J1030 01/31/2013 TRIAMCINOLONE ACET INJ NOS CPT-4: J3301 01/31/2013 ROUTINE VENIPUNCTURE CPT-4: 51269 09/19/2012 COMPREHEN METABOLIC PANEL CPT-4: 43192 09/19/2012 LIPID PANEL CPT-4: 26153 09/19/2012 A1C GLYCOSYLATED HEMOGLOBIN TEST CPT-4: 39618 012 PNEUMOCOCCAL VACC 23 OLIVIA IM CPT-4: 63237 07/10/2012 FLUZONE, 5ML (Medicare) CPT-4: Q2038 07/10/2012 ADMIN INFLUENZA VIRUS VAC CPT-4: G0008 07/10/2012 ADMIN PNEUMOCOCCAL VACCINE CPT-4: G0009 07/10/2012 ROUTINE VENIPUNCTURE CPT-4: 29781 05/06/2012 ASSAY OF FREE THYROXINE CPT-4: 52379 05/06/2012 ASSAY THYROID STIM HORMONE CPT-4: 29834 05/06/2012 COMPREHEN METABOLIC PANEL CPT-4: 50732 05/06/2012 COMPLETE CBC W/AUTO DIFF WBC CPT-4: 32928 05/06/2012 LIPID PANEL CPT-4: 60280 05/06/2012 A1C GLYCOSYLATED HEMOGLOBIN TEST CPT-4: 40937 012 IMMUNIZATION ADMIN CPT-4: 99765 02/05/2012 FLUZONE, 5ML (Medicare) CPT-4: Q2038 08/10/2011 ADMIN INFLUENZA VIRUS VAC CPT-4: G0008 08/10/2011 ROUTINE VENIPUNCTURE CPT-4: 99364 07/26/2011 ASSAY OF FREE THYROXINE CPT-4: 70190 07/26/2011 ASSAY THYROID STIM HORMONE CPT-4: 94144 07/26/2011 COMPREHEN METABOLIC PANEL CPT-4: 05992 07/26/2011 COMPLETE CBC W/AUTO DIFF WBC CPT-4: 59837 07/26/2011 LIPID PANEL CPT-4: 51179 07/26/2011 A1C GLYCOSYLATED HEMOGLOBIN TEST CPT-4: 21843 011 ASSAY OF PSA TOTAL CPT-4: 32899 07/26/2011 ROUTINE VENIPUNCTURE CPT-4: 55892 01/19/2011 ASSAY OF NATRIURETIC PEPTIDE CPT-4: 04970 01/19/2011 THER/PROPH/DIAG INJ SC/IM CPT-4: 82098 01/19/2011 CEFTRIAXONE SODIUM INJECTION CPT-4: J0696 01/19/2011 METHYLPREDNISOLONE INJECTION CPT-4: J2930 01/19/2011 THER/PROPH/DIAG INJ SC/IM CPT-4: 73874 01/19/2011 THER/PROPH/DIAG INJ SC/IM CPT-4: 00482 01/18/2011 CEFTRIAXONE SODIUM INJECTION CPT-4: J0696 01/18/2011 METHYLPREDNISOLONE INJECTION CPT-4: J2930 01/18/2011 THER/PROPH/DIAG INJ SC/IM CPT-4: 66275 01/18/2011 THER/PROPH/DIAG INJ SC/IM CPT-4: 21525 12/21/2010 TESTOSTERONE CYPIONAT 100 MG CPT-4: J1070 12/21/2010 ROUTINE VENIPUNCTURE CPT-4: 47348 12/19/2010 TESTOSTERONE TOTAL - MALE CPT-4: 84709 12/19/2010 ROUTINE VENIPUNCTURE CPT-4: 90844 12/07/2010 COMPLETE CBC W/AUTO DIFF WBC CPT-4: 66044 12/07/2010 COMPREHEN METABOLIC PANEL CPT-4: 68046 12/07/2010 LIPID PANEL CPT-4: 43091 12/07/2010 A1C GLYCOSYLATED HEMOGLOBIN TEST CPT-4: 61809 011 ASSAY OF PSA TOTAL CPT-4: 03270 12/07/2010 ROUTINE VENIPUNCTURE CPT-4: 76459 04/05/2010 PRESCRIP TRANSMIT VIA ERX SY CPT-4: G8553 04/05/2010 ROUTINE VENIPUNCTURE CPT-4: 67707 01/13/2010 METHYLPREDNISOLONE INJECTION CPT-4: J2930 12/22/2009 THER/PROPH/DIAG INJ SC/IM CPT-4: 36517 12/22/2009 THER/PROPH/DIAG INJ SC/IM CPT-4: 67094 12/22/2009 CEFTRIAXONE SODIUM INJECTION CPT-4: J0696 12/22/2009 ROUTINE VENIPUNCTURE CPT-4: 28953 12/22/2009 COMPLETE CBC W/AUTO DIFF WBC CPT-4: 35010 12/22/2009 RBC SED RATE, AUTOMATED CPT-4: 17779 12/22/2009 RPR FE/E/EN/L/M 20.1-30.0 CM CPT-4: 94120 12/22/2009 EKG FOR INITIAL PREVENT EXAM CPT-4: G0403 12/22/2009 THER/PROPH/DIAG INJ SC/IM CPT-4: 99377 12/16/2009 KETOROLAC TROMETHAMINE INJ CPT-4: J1885 12/16/2009 [...] 1: 126/68 Code: 8480-6 BMI: 30.2 Code: 21361-2 Heart Rate 1: 92 bpm Height: 6' Respiratory Rate: 22 bpm SpO2: 94% Tempera ture: 36.9 (C) / 98.5 (F) Weight: 223 lbs 08/21/2018 Blood Pressure 1: 160/70 Code: 8480-6 Heart Rate 1: 79 bpm Respiratory Rate: 20 bpm SpO2: 94% Temperature: 36.7 (C) / 98.0 (F) We ight: 226 lbs 8 oz 08/07/2018 Blood Pressure 1: 138/70 Code: 8480-6 BMI: 30.1 Code: 02001-6 Heart Rate 1: 80 bpm Height: 6' Respiratory Rate: 20 bpm SpO2: 94% Tempera ture: 36.9 (C) / 98.5 (F) Weight: 222 lbs 05/23/2018 Blood Pressure 1: 148/66 Code: 8480-6 BMI: 30.0 Code: 98264-4 Heart Rate 1: 96 bpm Height: 6' Respiratory Rate: 22 bpm SpO2: 94% Tempera ture: 37.3 (C) / 99.1 (F) Weight: 221 lbs 05/02/2018 Blood Pressure 1: 146/78 Code: 8480-6 BMI: 29.6 Code: 52855-2 Heart Rate 1: 78 bpm Height: 6' Respiratory Rate: 26 bpm SpO2: 94% Tempera ture: 35.7 (C) / 96.2 (F) Weight: 218 lbs 04/29/2018 Blood Pressure 1: 142/62 Code: 8480-6 BMI: 28.6 Code: 83210-9 Heart Rate 1: 82 bpm Height: 6' Respiratory Rate: 22 bpm SpO2: 98% Tempera ture: 36.4 (C) / 97.6 (F) Weight: 211 lbs 04/22/2018 Blood Pressure 1: 126/64 Code: 8480-6 BMI: 30.0 Code: 58942-6 Heart Rate 1: 96 bpm Height: 6' [...] 1: 144/78 Code: 8480-6 BMI: 30.7 Code: 62949-6 Heart Rate 1: 92 bpm Height: 6' Respiratory Rate: 28 bpm SpO2: 94% Tempera ture: 36.9 (C) / 98.4 (F) Weight: 226 lbs 12/28/2017 Blood Pressure 1: 136/80 Code: 8480-6 Heart Rate 1: 92 bpm Respiratory Rate: 28 bpm SpO2: 94% Temperature: 36.7 (C) / 98.1 (F) 12/21/2017 Blood Pressure 1: 146/84 Code: 8480-6 BMI: 31.1 Code: 14693-9 Heart Rate 1: 84 bpm Height: 6' [...] 1: 142/64 Code: 8480-6 BMI: 31.3 Code: 32511-1 Heart Rate 1: 98 bpm Height: 6' Respiratory Rate: 24 bpm SpO2: 94% Tempera ture: 36.4 (C) / 97.6 (F) Weight: 231 lbs 10/17/2017 Blood Pressure 1: 140/68 Code: 8480-6 BMI: 31.7 Code: 31233-6 Heart Rate 1: 88 bpm Height: 6' Respiratory Rate: 20 bpm SpO2: 94% Tempera ture: 36.8 (C) / 98.3 (F) Weight: 234 lbs 08/02/2017 Blood Pressure 1: 142/80 Code: 8480-6 BMI: 31.1 Code: 82486-7 Heart Rate 1: 86 bpm Height: 6' Respiratory Rate: 20 bpm SpO2: 90% Tempera ture: 35.9 (C) / 96.7 (F) Weight: 229 lbs 07/02/2017 Blood Pressure 1: 146/64 Code: 8480-6 BMI: 29.6 Code: 58319-3 Heart Rate 1: 96 bpm Height: 6' Respiratory Rate: 20 bpm Temperature: 36 .4 (C) / 97.6 (F) Weight: 218 lbs 05/29/2017 Blood Pressure 1: 152/68 Code: 8480-6 BMI: 31.5 Code: 55422-7 Heart Rate 1: 100 bpm Height: 6' Respiratory Rate: 20 bpm SpO2: 92% Tempera ture: 36.9 (C) / 98.4 (F) Weight: 232 lbs 02/01/2017 Blood Pressure 1: 146/64 Code: 8480-6 BMI: 30.7 Code: 08855-4 Heart Rate 1: 76 bpm Height: 6' Respiratory Rate: 20 bpm SpO2: 95% Tempera ture: 36.8 (C) / 98.2 (F) Weight: 226 lbs 01/29/2017 Blood Pressure 1: 146/78 Code: 8480-6 Heart Rate 1: 84 bpm Respiratory Rate: 20 bpm SpO2: 96% Temperature: 36.1 (C) / 97.0 (F) We ight: 226 lbs 12/21/2016 Blood Pressure 1: 126/60 Code: 8480-6 BMI: 30.8 Code: 76269-7 Heart Rate 1: 88 bpm Height: 6' Respiratory Rate: 22 bpm SpO2: 94% Tempera ture: 36.7 (C) / 98.0 (F) Weight: 227 lbs 12/14/2016 Blood Pressure 1: 126/70 Code: 8480-6 BMI: 29.8 Code: 06701-8 Heart Rate 1: 92 bpm Height: 6' Respiratory Rate: 22 bpm SpO2: 93% Tempera ture: 36.8 (C) / 98.2 (F) Weight: 220 lbs 11/14/2016 Blood Pressure 1: 128/62 Code: 8480-6 Heart Rate 1: 100 bpm Respiratory Rate: 20 bpm SpO2: 96% Temperature: 36.6 (C) / 97.8 (F) We ight: 220 lbs 10/31/2016 Blood Pressure 1: 142/60 Code: 8480-6 BMI: 30.1 Code: 51646-9 Heart Rate 1: 112 bpm Height: 6' Respiratory Rate: 24 bpm SpO2: 93% Tempera ture: 37.1 (C) / 98.7 (F) Weight: 222 lbs 10/03/2016 Blood Pressure 1: 136/78 Code: 8480-6 Heart Rate 1: 106 bpm Respiratory Rate: 24 bpm SpO2: 93% Temperature: 36.6 (C) / 97.8 (F) We ight: 221 lbs 09/04/2016 Blood Pressure 1: 112/44 Code: 8480-6 BMI: 30.1 Code: 33384-0 Heart Rate 1: 90 bpm Height: 6' Respiratory Rate: 20 bpm SpO2: 93% Tempera ture: 36.6 (C) / 97.9 (F) Weight: 222 lbs 08/22/2016 Blood Pressure 1: 142/68 Code: 8480-6 BMI: 30.4 Code: 32142-3 Heart Rate 1: 100 bpm Height: 6' Respiratory Rate: 24 bpm SpO2: 93% Tempera ture: 36.7 (C) / 98.1 (F) Weight: 224 lbs 08/10/2016 Blood Pressure 1: 134/60 Code: 8480-6 BMI: 30.2 Code: 81444-5 Heart Rate 1: 76 bpm Height: 6' [...] 1: 122/72 Code: 8480-6 BMI: 30.7 Code: 31481-4 Heart Rate 1: 96 bpm Height: 6' Respiratory Rate: 22 bpm SpO2: 96% Tempera ture: 35.9 (C) / 96.7 (F) Weight: 226 lbs 04/03/2016 Blood Pressure 1: 146/64 Code: 8480-6 BMI: 30.8 Code: 70651-9 Heart Rate 1: 76 bpm Height: 6' Respiratory Rate: 20 bpm Temperature: 36 .8 (C) / 98.2 (F) Weight: 227 lbs 03/02/2016 Blood Pressure 1: 148/60 Code: 8480-6 BMI: 31.1 Code: 46422-0 Heart Rate 1: 80 bpm Height: 6' Respiratory Rate: 22 bpm SpO2: 94% Tempera ture: 36.6 (C) / 97.8 (F) Weight: 229 lbs 02/17/2016 Blood Pressure 1: 132/60 Code: 8480-6 BMI: 31.3 Code: 75619-0 Heart Rate 1: 80 bpm Height: 6' Respiratory Rate: 20 bpm Temperature: 36 .9 (C) / 98.4 (F) Weight: 231 lbs 02/14/2016 Blood Pressure 1: 126/70 Code: 8480-6 BMI: 31.3 Code: 35594-1 Heart Rate 1: 80 bpm Height: 6' Respiratory Rate: 24 bpm SpO2: 95% Tempera ture: 36.9 (C) / 98.5 (F) Weight: 231 lbs 01/31/2016 Blood Pressure 1: 136/60 Code: 8480-6 Heart Rate 1: 76 bpm Respiratory Rate: 22 bpm Temperature: 37.0 (C) / 98.6 (F) Weight: 230 lbs 12/30/2015 Blood Pressure 1: 128/58 Code: 8480-6 BMI: 31.2 Code: 33769-8 Heart Rate 1: 80 bpm Height: 6' Respiratory Rate: 20 bpm Temperature: 36 .8 (C) / 98.2 (F) Weight: 230 lbs 12/16/2015 Blood Pressure 1: 122/60 Code: 8480-6 BMI: 32.0 Code: 14477-3 Heart Rate 1: 84 bpm Height: 6' Respiratory Rate: 24 bpm Temperature: 37 .1 (C) / 98.7 (F) Weight: 236 lbs 12/06/2015 Blood Pressure 1: 162/74 Code: 8480-6 BMI: 32.5 Code: 37579-3 Heart Rate 1: 90 bpm Height: 6' Respiratory Rate: 20 bpm SpO2: 96% Tempera ture: 36.4 (C) / 97.6 (F) Weight: 240 lbs 11/15/2015 Blood Pressure 1: 166/80 Code: 8480-6 BMI: 32.4 Code: 25524-9 Heart Rate 1: 92 bpm Height: 6' Respiratory Rate: 28 bpm Temperature: 36 .5 (C) / 97.7 (F) Weight: 239 lbs 10/05/2015 Blood Pressure 1: 146/76 Code: 8480-6 BMI: 32.4 Code: 61298-1 Heart Rate 1: 88 bpm Height: 6' Respiratory Rate: 28 bpm Temperature: 37 .1 (C) / 98.7 (F) Weight: 239 lbs 07/22/2015 Blood Pressure 1: 144/68 Code: 8480-6 BMI: 31.9 Code: 63922-2 Heart Rate 1: 88 bpm Height: 6' [...] 1: 142/64 Code: 8480-6 BMI: 32.1 Code: 20478-5 Heart Rate 1: 80 bpm Height: 6' Respiratory Rate: 18 bpm Temperature: 36 .4 (C) / 97.6 (F) Weight: 237 lbs 06/07/2015 Blood Pressure 1: 164/58 Code: 8480-6 BMI: 32.1 Code: 34776-5 Heart Rate 1: 88 bpm Height: 6' Respiratory Rate: 20 bpm Temperature: 36 .6 (C) / 97.9 (F) Weight: 237 lbs 06/03/2015 Blood Pressure 1: 152/64 Code: 8480-6 BMI: 32.1 Code: 91180-1 Heart Rate 1: 96 bpm Height: 6' Respiratory Rate: 20 bpm Temperature: 37 .4 (C) / 99.3 (F) Weight: 237 lbs 06/01/2015 Blood Pressure 1: 136/70 Code: 8480-6 BMI: 31.7 Code: 99398-1 Heart Rate 1: 72 bpm Height: 6' Respiratory Rate: 22 bpm SpO2: 94% Tempera ture: 36.6 (C) / 97.9 (F) Weight: 234 lbs 02/25/2015 Blood Pressure 1: 146/80 Code: 8480-6 BMI: 32.4 Code: 28453-9 Heart Rate 1: 84 bpm Height: 6' Respiratory Rate: 28 bpm Temperature: 36 .7 (C) / 98.0 (F) Weight: 239 lbs 10/27/2014 Blood Pressure 1: 168/70 Code: 8480-6 BMI: 32.0 Code: 87266-1 Heart Rate 1: 80 bpm Height: 6' Respiratory Rate: 30 bpm SpO2: 98% Tempera ture: 36.4 (C) / 97.6 (F) Weight: 236 lbs 10/21/2014 Blood Pressure 1: 152/58 Code: 8480-6 BMI: 32.1 Code: 17747-1 Heart Rate 1: 78 bpm Height: 6' Respiratory Rate: 20 bpm Temperature: 37 .8 (C) / 100.1 (F) Weight: 237 lbs 10/06/2014 Blood Pressure 1: 132/64 Code: 8480-6 BMI: 32.5 Code: 17357-8 Heart Rate 1: 88 bpm Height: 6' Respiratory Rate: 32 bpm SpO2: 94% Tempera ture: 36.8 (C) / 98.2 (F) Weight: 240 lbs 09/21/2014 Blood Pressure 1: 134/68 Code: 8480-6 BMI: 32.4 Code: 99764-6 Heart Rate 1: 96 bpm Height: 6' Respiratory Rate: 30 bpm Temperature: 36 .7 (C) / 98.1 (F) Weight: 239 lbs 09/08/2014 Blood Pressure 1: 128/74 Code: 8480-6 BMI: 32.4 Code: 83495-8 Heart Rate 1: 82 bpm Height: 6' Respiratory Rate: 28 bpm SpO2: 93% Tempera ture: 36.6 (C) / 97.8 (F) Weight: 239 lbs 09/02/2014 Blood Pressure 1: 164/78 Code: 8480-6 Heart Rate 1: 86 bpm Respiratory Rate: 22 bpm SpO2: 96% Temperature: 36.1 (C) / 97.0 (F) We ight: 239 lbs 08/10/2014 Blood Pressure 1: 152/60 Code: 8480-6 BMI: 32.8 Code: 27848-5 Heart Rate 1: 80 bpm Height: 6' [...] 1: 146/80 Code: 8480-6 BMI: 33.9 Code: 10837-2 Heart Rate 1: 80 bpm Height: 6' [...] 1: 148/78 Code: 8480-6 BMI: 30.5 Code: 18412-8 Heart Rate 1: 84 bpm Height: 6' Respiratory Rate: 28 bpm SpO2: 97% Tempera ture: 36.4 (C) / 97.5 (F) Weight: 225 lbs 08/06/2013 Blood Pressure 1: 158/70 Code: 8480-6 Heart Rate 1: 110 bpm Respiratory Rate: 22 bpm SpO2: 88% Temperature: 39.7 (C) / 103.4 (F) W eight: 07/16/2013 Blood Pressure 1: 148/82 Code: 8480-6 BMI: 31.9 Code: 80961-7 Heart Rate 1: 80 bpm Height: 6' Respiratory Rate: 20 bpm Temperature: 36 .6 (C) / 97.9 (F) Weight: 235 lbs 04/09/2013 Blood Pressure 1: 142/78 Code: 8480-6 BMI: 31.5 Code: 37475-6 Heart Rate 1: 88 bpm Height: 6' Respiratory Rate: 32 bpm SpO2: 95% Tempera ture: 37.0 (C) / 98.6 (F) Weight: 232 lbs 02/11/2013 Blood Pressure 1: 146/70 Code: 8480-6 Heart Rate 1: 88 bpm Respiratory Rate: 20 bpm Temperature: 36.8 (C) / 98.3 (F) Weight: 230 lbs 01/31/2013 Blood Pressure 1: 128/70 Code: 8480-6 BMI: 31.6 Code: 14996-7 Heart Rate 1: 84 bpm Height: 6' Respiratory Rate: 24 bpm SpO2: 92% Tempera ture: 36.7 (C) / 98.0 (F) Weight: 233 lbs 01/20/2013 Blood Pressure 1: 148/64 Code: 8480-6 BMI: 31.6 Code: 67916-6 Heart Rate 1: 68 bpm Height: 6' Temperature: 36.1 (C) / 97.0 (F) Weight: 233 lbs 12/19/2012 Blood Pressure 1: 128/68 Code: 8480-6 BMI: 32.0 Code: 32283-7 Heart Rate 1: 64 bpm Height: 6' Temperature: 36.7 (C) / 98.0 (F) Weight: 236 lbs 10/21/2012 Blood Pressure 1: 142/64 Code: 8480-6 BMI: 30.9 Code: 57630-0 Heart Rate 1: 74 bpm Height: 6' Temperature: 36.2 (C) / 97.1 (F) Weight: 228 lbs 09/18/2012 Blood Pressure 1: 126/60 Code: 8480-6 BMI: 31.3 Code: 25035-6 Heart Rate 1: 88 bpm Height: 6' Respiratory Rate: 20 bpm Temperature: 36 .5 (C) / 97.7 (F) Weight: 231 lbs 08/28/2012 Blood Pressure 1: 132/68 Code: 8480-6 BMI: 31.5 Code: 65197-9 Heart Rate 1: 92 bpm Height: 6' Respiratory Rate: 30 bpm SpO2: 94% Tempera ture: 37.1 (C) / 98.7 (F) Weight: 232 lbs 07/10/2012 Blood Pressure 1: 118/70 Code: 8480-6 BMI: 30.5 Code: 86936-9 Heart Rate 1: 72 bpm Height: 6' Respiratory Rate: 24 bpm SpO2: 96% Tempera ture: 36.7 (C) / 98.0 (F) Weight: 225 lbs 05/09/2012 Blood Pressure 1: 124/68 Code: 8480-6 BMI: 29.8 Code: 66484-9 Heart Rate 1: 72 bpm Height: 6' Respiratory Rate: 20 bpm Temperature: 36 .8 (C) / 98.2 (F) Weight: 220 lbs 10/02/2011 Blood Pressure 1: 140/82 Code: 8480-6 BMI: 30.7 Code: 72463-9 Heart Rate 1: 68 bpm Height: 6' Temperature: 36.7 (C) / 98.0 (F) Weight: 226 lbs 08/07/2011 Blood Pressure 1: 122/68 Code: 8480-6 BMI: 30.5 Code: 29953-8 Heart Rate 1: 72 bpm Height: 6' [...] 1: 140/78 Code: 8480-6 BMI: 31.9 Code: 24083-6 Heart Rate 1: 84 bpm Height: 6' Temperature: 36.6 (C) / 97.8 (F) Weight: 235 lbs 12/22/2009 Blood Pressure 1: 140/74 Code: 8480-6 BMI: 31.9 Code: 03925-2 Heart Rate 1: 94 bpm Height: 6' SpO2: 92% Temperature: 35.7 (C) / 96.2 (F) Weight: 235 lbs 12/13/2009 Blood Pressure 1: 146/80 Code: 8480-6 BMI: 33.0 Code: 86350-0 Heart Rate 1: 86 bpm Height: 6' [...] shot follow up 05/08/2019 follow up 04/07/2019 [facility] dizziness 03/24/2019 dizziness 03/21/2019 sore throat 03/13/2019 Patient finished zit hromax last night and has one dose of prednisone left follow up 03/10/2019 ER [facility]---patient cu rrently taking zithromax, prednisone and breathing treatments every two hours spasms/spasticity 02/26/2019 follow up 02/13/2019 follow up 01/14/2019 [facility] follow up 12/25/2018 cough 12/09/2018 here [...] reports he was going to call his juvenile probation officer today. follow up 05/29/2017 Discuss Low Back [...] nightly. Patient has just been discharged from [place] with Pneumonia. Currently on Levaquin once daily. 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] Diagnosis: FLU VACCINE[ICD10: Z23] Lita CRAWFORD [facility] CPT-4: 45182 08/07/2019 ([id number]) OFFICE/OUTPATIENT VISIT EST Diagnosis: Chronic obstructive pulmonary disease with (acute) exacerbation[ICD10: J44.1] Autumn Oneil LITA [facility] CPT- 4: 34247 07/14/2019 ([id number]) OFFICE/OUTPATIENT VISIT EST Diagnosis: Primary insomnia[ICD10: F51.01] Diagnosis: Dyspepsia and other specified disorders of function of stomach[ICD10: K31.89] Lita BARAKAT DO [facility] CPT-4: 33610 07/01/2019 ([id number]) OFFICE/OUTPATIENT VISIT EST Diagnosis: Epigastric pain[ICD10: R10.13] Diagnosis: Nausea[ICD10: R11.0] Diagnosis: Weight loss[ICD10: R63.4] Lita AREVALO DO [facility] CPT-4: 20440 06/24/2019 ([id number]) OFFICE/OUTPATIENT VISIT EST Diagnosis: Chronic obstructive pulmonary disease, unspecified[ICD10: J44.9] Diagnosis: Chronic insomnia[ICD10: F51.04] Diagnosis: Anemia[ICD10: D64.9] Diagnosis: Diplopia[ICD10: H53.2] Diagnosis: [place][ICD10: F30.9] Lita BARAKAT DO [facility] CPT-4: 29138 06/17/2019 ([id number]) NURSE/OUTPATIENT VISIT EST Diagnosis: Vitamin B12 deficiency anemia, unspecified[ICD10: D51.9] Lita BARAKAT DO [facility] CPT-4: 24295 06/10/2019 ([id number]) NURSE/OUTPATIENT VISIT EST Diagnosis: Vitamin B12 deficiency anemia, unspecified[ICD10: D51.9] Lita BARAKAT DO [facility] CPT-4: 07498 06/02/2019 ([id number]) NURSE/OUTPATIENT VISIT EST Diagnosis: Vitamin B12 deficiency anemia, unspecified[ICD10: D51.9] Lita BARAKAT DO [facility] CPT-4: 21297 05/27/2019 ([id number]) NURSE/OUTPATIENT VISIT EST Diagnosis: Vitamin B12 deficiency anemia, unspecified[ICD10: D51.9] Lita BARAKAT DO [facility] CPT-4: 38489 05/12/2019 ([id number]) OFFICE/OUTPATIENT VISIT EST Diagnosis: Restless legs syndrome[ICD10: G25.81] Diagnosis: Primary insomnia[ICD10: F51.01] Diagnosis: Anemia, unspecified[ICD10: D64.9] Diagnosis: Type 2 diabetes mellitus with hyperglycemia[ICD10: E11.65] Diagnosis: Vitamin D deficiency, unspecified[ICD10: E55.9] Lita BARAKAT DO [facility] CPT-4: 93116 05/08/2019 ([id number]) OFFICE/OUTPATIENT VISIT EST Diagnosis: Pain in right knee[ICD10: M25.561] Diagnosis: Restless legs syndrome[ICD10: G25.81] Diagnosis: Insomnia, unspecified[ICD10: G47.00] Lita BARAKAT DO [facility] CPT-4: 13314 04/07/2019 ([id number]) NO CHARGE Diagnosis: Chronic obstructive pulmonary disease with (acute) exacerbation[ICD10: J44.1] Diagnosis: Dizziness and giddiness[ICD10: R42] Diagnosis: Generalized anxiety disorder[ICD10: F41.1] Autumn BARAKAT DO [facility] CPT-4: 80075 03/24/2019 ([id number]) OFFICE/OUTPATIENT VISIT EST Diagnosis: Chronic obstructive pulmonary disease with (acute) exacerbation[ICD10: J44.1] Diagnosis: Dizziness and giddiness[ICD10: R42] Autumn BARAKAT [address] [facility] CPT-4: 25173 03/21/2019 ([id number]) OFFICE/OUTPATIENT VISIT EST Diagnosis: Candidal stomatitis[ICD10: B37.0] Lita BARAKAT [address] [facility] CPT-4: 37653 03/13/2019 ([id number]) OFFICE/OUTPATIENT VISIT EST Diagnosis: Chronic obstructive pulmonary disease with acute lower respiratory infection[ICD10: J44.0] Diagnosis: Restless legs syndrome[ICD10: G25.81] Lita BARAKAT [address] [facility] CPT-4: 70364 03/10/2019 ([id number]) OFFICE/OUTPATIENT VISIT EST Diagnosis: Restless legs syndrome[ICD10: G25.81] Lita BARAKAT DO [facility] CPT-4: 17073 02/26/2019 ([id number]) OFFICE/OUTPATIENT VISIT EST Diagnosis: Primary insomnia[ICD10: F51.01] Diagnosis: Chronic obstructive pulmonary disease, unspecified[ICD10: J44.9] Lita BARAKAT DO [facility] CPT-4: 79079 02/13/2019 ([id number]) OFFICE/OUTPATIENT VISIT EST Diagnosis: Chronic obstructive pulmonary disease, unspecified[ICD10: J44.9] Diagnosis: Chronic respiratory failure with hypoxia[ICD10: J96.11] Diagnosis: Chronic respiratory failure with hypercapnia[ICD10: J96.12] Lita BARAKAT DO [facility] CPT-4: 07473 01/14/2019 ([id number]) OFFICE/OUTPATIENT VISIT EST Diagnosis: Chronic respiratory failure with hypoxia[ICD10: J96.11] Diagnosis: Patient's noncompliance with other medical treatment and regimen[ICD10: Z91.19] Diagnosis: Chronic obstructive pulmonary disease with (acute) exacerbation[ICD10: J44.1] Lita BARAKAT [address] [facility] CPT- 4: 66285 12/25/2018 ([id number]) OFFICE/OUTPATIENT VISIT EST Diagnosis: Essential (primary) hypertension[ICD10: I10] Diagnosis: Type 2 diabetes mellitus with hyperglycemia[ICD10: E11.65] Diagnosis: Hypothyroidism, unspecified[ICD10: E03.9] Diagnosis: Hyperlipidemia, unspecified[ICD10: E78.5] Diagnosis: Acute recurrent maxillary sinusitis[ICD10: J01.01] Ines Banerjee LITA BARAKAT [address] [facility] CPT-4: 17450 12/09/2018 ([id number]) OFFICE/OUTPATIENT VISIT EST Diagnosis: Candidal stomatitis[ICD10: B37.0] Lita ALYOSCAR Segura Ashley BARAKAT [address] [facility] CPT-4: 31474 12/05/2018 ([id number]) OFFICE/OUTPATIENT VISIT EST Diagnosis: Acute recurrent sinusitis, unspecified[ICD10: J01.91] Diagnosis: Pain in right knee[ICD10: M25.561] Lita Barakat KEVIN GONZALES Ashley BARAKAT [address] [facility] CPT-4: 35218 10/23/2018 ([id number]) OFFICE/OUTPATIENT VISIT EST Diagnosis: Restless legs syndrome[ICD10: G25.81] Diagnosis: Basal cell carcinoma of skin of scalp and neck[ICD10: C44.41] Lita BARAKAT DO [facility] CPT-4: 04367 08/21/2018 ([id number]) OFFICE/OUTPATIENT VISIT EST Diagnosis: Chronic obstructive pulmonary disease with acute lower respiratory infection[ICD10: J44.0] Diagnosis: Restless legs syndrome[ICD10: G25.81] Lita BARAKAT DO [facility] CPT-4: 11570 08/07/2018 ([id number]) OFFICE/OUTPATIENT VISIT EST Diagnosis: Chronic obstructive pulmonary disease with acute lower respiratory infection[ICD10: J44.0] Lita BARAKAT DO [facility] CPT-4: 43436 05/23/2018 ([id number]) OFFICE/OUTPATIENT VISIT EST Diagnosis: Candidal stomatitis[ICD10: B37.0] Lita BARAKAT DO [facility] CPT-4: 92828 05/02/2018 ([id number]) OFFICE/OUTPATIENT VISIT EST Diagnosis: Candidal stomatitis[ICD10: B37.0] Diagnosis: Other retention of urine[ICD10: R33.8] Diagnosis: Chronic obstructive pulmonary disease with acute lower respiratory infection[ICD10: J44.0] Autumn BARAKAT DO [facility] CPT-4: 10259 04/29/2018 ([id number]) OFFICE/OUTPATIENT VISIT EST Diagnosis: Chronic obstructive pulmonary disease with acute lower respiratory infection[ICD10: J44.0] Lita BARAKAT DO [facility] CPT-4: 53117 04/22/2018 ([id number]) OFFICE/OUTPATIENT VISIT EST Diagnosis: Unilateral primary osteoarthritis, right knee[ICD10: M17.11] Diagnosis: Squamous cell carcinoma of skin, unspecified[ICD10: C44.92] Lita BARAKAT DO [facility] CPT-4: 41950 01/28/2018 ([id number]) OFFICE/OUTPATIENT VISIT EST Diagnosis: Pain in right knee[ICD10: M25.561] Diagnosis: 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] Lita BARAKAT DO [facility] CPT-4: 99978 01/23/2018 ([id number]) OFFICE/OUTPATIENT VISIT EST Diagnosis: Urinary tract infection, site not specified[ICD10: N39.0] Diagnosis: Chronic obstructive pulmonary disease with acute lower respiratory infection[ICD10: J44.0] Lita BARAKAT DO [facility] CPT-4: 53059 01/02/2018 ([id number]) OFFICE/OUTPATIENT VISIT EST Diagnosis: Chronic obstructive pulmonary disease with (acute) exacerbation[ICD10: J44.1] Autumn BARAKAT DO [facility] CPT- 4: 63745 12/28/2017 ([id number]) OFFICE/OUTPATIENT VISIT EST Diagnosis: Acute bronchitis, unspecified[ICD10: J20.9] Autumn BARAKAT DO [facility] CPT-4: 98748 12/21/2017 ([id number]) OFFICE/OUTPATIENT VISIT EST Diagnosis: Chronic obstructive pulmonary disease with acute lower respiratory infection[ICD10: J44.0] Diagnosis: Pain in right knee[ICD10: M25.561] Autumn BARAKAT DO [facility] CPT-4: 84428 12/17/2017 ([id number]) OFFICE/OUTPATIENT VISIT EST Diagnosis: Laceration without foreign body of right hand, sequela[ICD10: S61.411S] Diagnosis: Restless legs syndrome[ICD10: G25.81] Lita BARAKAT DO [facility] CPT-4: 95773 10/17/2017 OFFICE/OUTPATIENT VISIT EST Diagnosis: Chronic obstructive pulmonary disease with acute lower respiratory infection[ICD10: J44.0] Autumn BARAKAT DO [facility] CPT-4: 94121 08/02/2017 ([id number]) OFFICE/OUTPATIENT VISIT EST Diagnosis: PNEUMOCOCCAL VACCINE[ICD10: Z23] [facility] DO [facility] [facility]INIC CPT-4: 59005 07/24/2017 OFFICE/OUTPATIENT VISIT EST Diagnosis: Chronic obstructive pulmonary disease with (acute) exacerbation[ICD10: J44.1] Autumn BARAKAT DO [facility] CPT- 4: 04968 07/02/2017 OFFICE/OUTPATIENT VISIT EST Diagnosis: Low back pain[ICD10: M54.5] Ruchi GHOTRA [facility] CPT-4: 18576 05/29/2017 ([id number]) OFFICE/OUTPATIENT VISIT EST Diagnosis: Essential (primary) hypertension[ICD10: I10] Diagnosis: Hypothyroidism, unspecified[ICD10: E03.9] Diagnosis: Dizziness and giddiness[ICD10: R42] Diagnosis: Other abnormality of red blood cells[ICD10: R71.8] Diagnosis: Contracture of muscle, unspecified site[ICD10: M62.40] Lita ALYLINE Ashley BARAKAT [facility] CPT-4: 82750 04/17/2017 OFFICE/OUTPATIENT VISIT EST Diagnosis: Pain in left shoulder[ICD10: M25.512] Ruchi AGNE DonovanFerdinand GASPER [facility] CPT-4: 71240 01/29/2017 ([id number]) OFFICE/OUTPATIENT VISIT EST Diagnosis: Anemia, unspecified[ICD10: D64.9] Lita ALYOSCAR Segura DonovanFerdinand [facility] CPT-4: 53659 12/27/2016 ([id number]) OFFICE/OUTPATIENT VISIT EST Diagnosis: Other fatigue[ICD10: R53.83] Diagnosis: Other iron deficiency anemias[ICD10: D50.8] Lita ALYLINE DonovanFerdinand GASPER [facility] CPT-4: 88356 12/21/2016 ([id number]) OFFICE/OUTPATIENT VISIT EST Diagnosis: Anemia, unspecified[ICD10: D64.9] Diagnosis: Other fatigue[ICD10: R53.83] Diagnosis: Restless legs syndrome[ICD10: G25.81] Lita AGNE DonovanFerdinand [facility] CPT-4: 95241 12/14/2016 ([id number]) OFFICE/OUTPATIENT VISIT EST Diagnosis: Anemia, unspecified[ICD10: D64.9] Diagnosis: Other abnormality of red blood cells[ICD10: R71.8] Lita Barakat LITA DonovanFerdinand GASPER [facility] CPT-4: 91377 12/12/2016 ([id number]) OFFICE/OUTPATIENT VISIT EST Diagnosis: Pneumonia, unspecified organism[ICD10: J18.9] Diagnosis: Restless legs syndrome[ICD10: G25.81] Magda HERRMANNONIEL MARC Ashley BARAKAT [facility] CPT-4: 57220 11/14/2016 ([id number]) OFFICE/OUTPATIENT VISIT EST Diagnosis: Candidal stomatitis[ICD10: B37.0] Lita GOODE Daja Ashley BARAKAT [facility] CPT-4: 00449 10/31/2016 ([id number]) OFFICE/OUTPATIENT VISIT EST Diagnosis: Acute upper respiratory infection, unspecified[ICD10: J06.9] Diagnosis: Personal history of pneumonia (recurrent)[ICD10: Z87.01] Magda ALYLINE Ashley BARAKAT [facility] CPT-4: 69209 10/03/2016 ([id number]) OFFICE/OUTPATIENT VISIT EST Diagnosis: Restless legs syndrome[ICD10: G25.81] Diagnosis: Insomnia, unspecified[ICD10: G47.00] Magda Toth JERMAIN JESSICA Ashley BARAKAT [facility] CPT-4: 10017 09/04/2016 ([id number]) OFFICE/OUTPATIENT VISIT EST Diagnosis: Restless legs syndrome[ICD10: G25.81] Diagnosis: Primary insomnia[ICD10: F51.01] Lita ALYLINE Ashley BARAKAT [facility] CPT-4: 60921 08/10/2016 OFFICE/OUTPATIENT VISIT EST Diagnosis: Toxic gastroenteritis and colitis[ICD10: K52.1] Diagnosis: Dizziness and giddiness[ICD10: R42] Diagnosis: Headache[ICD10: R51] Diagnosis: Restless legs syndrome[ICD10: G25.81] Lita Gasper ALIZEONIEL AGNE Ashley BARAKAT [facility] CPT-4: 78453 07/06/2016 ([id number]) OFFICE/OUTPATIENT VISIT EST Diagnosis: Chest pain, unspecified[ICD10: R07.9] Diagnosis: Dyspnea, unspecified[ICD10: R06.00] Magda Toth ELLIS CONDE Ashley BARAKAT [facility] CPT-4: 23729 06/22/2016 ([id number]) OFFICE/OUTPATIENT VISIT EST 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] Diagnosis: PNEUMOCOCCAL VACCINE[ICD10: Z23] Diagnosis: FLU VACCINE[ICD10: Z23] Lita CRAWFORD Ashley [facility] CPT-4: 34130 06/13/2016 ([id number]) OFFICE/OUTPATIENT VISIT EST Diagnosis: Chest pain, unspecified[ICD10: R07.9] Diagnosis: Other forms of dyspnea[ICD10: R06.09] Diagnosis: Shortness of breath[ICD10: R06.02] Diagnosis: Other fatigue[ICD10: R53.83] Magda ALYLINE Ashley [facility] CPT-4: 50709 06/01/2016 ([id number]) OFFICE/OUTPATIENT VISIT EST Diagnosis: Unspecified hearing loss, left ear[ICD10: H91.92] Diagnosis: Other specified disorders of Eustachian tube, left ear[ICD10: H69.82] Magda ALYLINE [facility] CPT-4: 46538 11/2015 ([id number]) OFFICE/OUTPATIENT VISIT EST Diagnosis: Impacted cerumen, bilateral[ICD10: H61.23] Diagnosis: DM W/O COMPLICATION TYPE I, 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: E10.9] Diagnosis: Generalized anxiety disorder[ICD10: F41.1] Lita CRAWFORD [facility]erdinand [facility] CPT-4: 79940 04/03/2016 ([id number]) OFFICE/OUTPATIENT VISIT EST Diagnosis: 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] Lita Jasminbetty CRAWFORD Donovan[facility]erdinand [facility] CPT - 4: 76586 03/13/2016 ([id number]) OFFICE/OUTPATIENT VISIT EST Diagnosis: Type 2 diabetes mellitus with hyperglycemia[ICD10: E11.65] Diagnosis: Hyperlipidemia, unspecified[ICD10: E78.5] Diagnosis: Essential (primary) hypertension[ICD10: I10] Diagnosis: Chronic obstructive pulmonary disease, unspecified[ICD10: J44.9] Diagnosis: Testicular hypofunction[ICD10: E29.1] Diagnosis: Male erectile dysfunction, unspecified[ICD10: N52.9] Diagnosis: Anemia, unspecified[ICD10: D64.9] Litajessica BARAKAT DO [facility] CPT-4: 52903 03/06/2016 ([id number]) OFFICE/OUTPATIENT VISIT EST Diagnosis: Type 2 diabetes mellitus with hyperglycemia[ICD10: E11.65] Diagnosis: Hyperlipidemia, unspecified[ICD10: E78.5] Diagnosis: Chronic obstructive pulmonary disease, unspecified[ICD10: J44.9] Diagnosis: Male erectile dysfunction, unspecified[ICD10: N52.9] Lita BARAKAT DO [facility] CPT-4: 47762 03/02/2016 ([id number]) OFFICE/OUTPATIENT VISIT EST Diagnosis: Pain in right foot[ICD10: M79.671] Magda Toth JERMAINDARLING JANET BARAKAT DO [facility] CPT-4: 51502 02/14/2016 OFFICE/OUTPATIENT VISIT EST Diagnosis: Generalized anxiety disorder[ICD10: F41.1] Lita BARAKAT DO [facility] CPT-4: 07030 01/31/2016 ([id number]) OFFICE/OUTPATIENT VISIT EST Diagnosis: Generalized anxiety disorder[ICD10: F41.1] Lita BARAKAT DO [facility] CPT-4: 74979 12/30/2015 ([id number]) OFFICE/OUTPATIENT VISIT EST Diagnosis: Localized swelling, mass and lump, neck[ICD10: R22.1] Lita BARAKAT DO [facility] CPT-4: 34890 12/16/2015 OFFICE/OUTPATIENT VISIT EST Diagnosis: Localized enlarged lymph nodes[ICD10: R59.0] Diagnosis: Otalgia, left ear[ICD10: H92.02] Stephanie BARAKAT DO [facility] CPT-4: 59267 12/06/2015 OFFICE/OUTPATIENT VISIT EST Diagnosis: Localized enlarged lymph nodes[ICD10: R59.0] Diagnosis: Squamous cell carcinoma of skin, unspecified[ICD10: C44.92] Diagnosis: Actinic keratosis[ICD10: L57.0] Stephanie BARAKAT DO [facility] CPT-4: 12862 11/15/2015 OFFICE/OUTPATIENT VISIT EST Diagnosis: Cellulitis of left lower limb[ICD10: L03.116] Diagnosis: Encounter for examination and observation for other specified reasons[ICD10: Z04.8] Diagnosis: Chronic obstructive pulmonary disease, unspecified[ICD10: J44.9] Stephanie BARAKAT DO [facility] CPT-4: 72725 07/22/2015 OFFICE/OUTPATIENT VISIT EST Diagnosis: Other specified joint disorders, left knee[ICD10: M25.862] Diagnosis: Cellulitis of left lower limb[ICD10: L03.116] Diagnosis: Other fatigue[ICD10: R53.83] Diagnosis: Hyperlipidemia, unspecified[ICD10: E78.5] Stephanie BARAKAT DO [facility] CPT-4: 71612 07/01/2015 OFFICE/OUTPATIENT VISIT EST Diagnosis: Pain in left knee[ICD10: M25.562] Diagnosis: Cellulitis of left lower limb[ICD10: L03.116] Diagnosis: Other specified joint disorders, left knee[ICD10: M25.862] Stephanie ManFerdinand [facility] CPT-4: 27836 06/28/2015 OFFICE/OUTPATIENT VISIT EST Diagnosis: PREPATELLAR BURSITIS[ICD9: 726.65] Diagnosis: Cellulitis of knee, left[ICD9: 682.6] Stephanie EspinozaAshleyisabella ManFerdinand GASPER [facility] CPT-4: 49550 06/09/2015 ([id number]) OFFICE/OUTPATIENT VISIT EST Diagnosis: PREPATELLAR BURSITIS[ICD9: 726.65] Diagnosis: Cellulitis of knee, left[ICD9: 682.6] Lita Gasper ALIZEONIEL AGNE DonovanFerdinand G[facility] CPT-4: 35602 06/07/2015 OFFICE/OUTPATIENT VISIT EST Diagnosis: Cellulitis of knee, left[ICD9: 682.6] Stephanie EspinozaAshleyisabella ManFerdinand [facility] CPT-4: 95732 06/03/2015 ([id number]) OFFICE/OUTPATIENT VISIT EST Diagnosis: DM W/O COMPLICATION TYPE II, UNCONTROLLED[ICD9: 250.02] Diagnosis: COPD[ICD9: 496] Lita Jasminbetty LITA DonovanFerdinand GASPER [facility] CPT- 4: 59064 06/01/2015 ([id number]) OFFICE/OUTPATIENT VISIT EST Diagnosis: COPD[ICD9: 496] Diagnosis: DYSPNEA[ICD9: 786.09] Diagnosis: DM W/O COMPLICATION TYPE II, UNCONTROLLED[ICD9: 250.02] Diagnosis: Actinic keratosis[ICD9: 702.0] Lita BARAKAT DO [facility] CPT-4: 46370 02/25/2015 ([id number]) OFFICE/OUTPATIENT VISIT EST Diagnosis: ASTHMA NOS[ICD9: 493.90] Diagnosis: COPD[ICD9: 496] Diagnosis: DM W/O COMPLICATION TYPE II, UNCONTROLLED[ICD9: 250.02] Lita BARAKAT DO [facility] CPT-4: 65861 10/27/2014 OFFICE/OUTPATIENT VISIT EST Diagnosis: DYSPNEA[ICD9: 786.09] Diagnosis: COPD[ICD9: 496] Lita BARAKAT DO [facility] CPT- 4: 04655 10/06/2014 ([id number]) OFFICE/OUTPATIENT VISIT EST Diagnosis: PNEUMONIA, ORGANISM[ICD9: 486] Diagnosis: COPD[ICD9: 496] Diagnosis: DYSPNEA[ICD9: 786.09] Lita BARAKAT [address] [facility] CPT-4: 83254 09/21/2014 OFFICE/OUTPATIENT VISIT EST Diagnosis: PNEUMONIA, ORGANISM[ICD9: 486] Diagnosis: DYSPNEA[ICD9: 786.09] Diagnosis: COUGH[ICD9: 786.2] Stephanie BARAKAT [address] [facility] CPT-4: 43574 09/08/2014 OFFICE/OUTPATIENT VISIT EST Diagnosis: COPD with exacerbation[ICD9: 491.21] Diagnosis: COUGH[ICD9: 786.2] Diagnosis: DYSPNEA[ICD9: 786.09] Stephanie BARAKAT [address] [facility] CPT-4: 45243 09/02/2014 ([id number]) OFFICE/OUTPATIENT VISIT EST Diagnosis: DM W/O COMPLICATION TYPE II, UNCONTROLLED[ICD9: 250.02] Lita BARAKAT [address] [facility] CPT-4: 10876 08/27/2014 ([id number]) OFFICE/OUTPATIENT VISIT EST Diagnosis: DM W/O COMPLICATION TYPE II, UNCONTROLLED[ICD9: 250.02] Diagnosis: HYPERLIPIDEMIA NEC/NOS[ICD9: 272.4] Diagnosis: HYPERTENSION[ICD9: 401.9] Diagnosis: COPD[ICD9: 496] Diagnosis: FLU VACCINE[ICD10: Z23] Lita PABLO [facility] CPT-4: 81589 08/05/2014 ([id number]) OFFICE/OUTPATIENT VISIT EST Diagnosis: COPD[ICD9: 496] Diagnosis: Lumbar degenerative disc disease[ICD9: 722.52] Lita BARAKAT [facility] CPT-4: 56607 05/05/2014 OFFICE/OUTPATIENT VISIT EST Diagnosis: DYSPNEA[ICD9: 786.09] Diagnosis: COPD[ICD9: 496] Lita [facility] CPT- 4: 30162 03/24/2014 ([id number]) OFFICE/OUTPATIENT VISIT EST Diagnosis: COPD[ICD9: 496] Diagnosis: DYSPNEA[ICD9: 786.09] Lita [facility] CPT-4: 71991 03/10/2014 OFFICE/OUTPATIENT VISIT EST Diagnosis: Subacromial bursitis[ICD9: 726.19] Diagnosis: Chronic low back pain[ICD9: 724.2] Diagnosis: Lumbar degenerative disc disease[ICD9: 722.52] Lita [facility] CPT-4: 52558 12/16/2013 ([id number]) OFFICE/OUTPATIENT VISIT EST Diagnosis: PHARYNGITIS, ACUTE[ICD9: 462] Diagnosis: COPD[ICD9: 496] Lita BARAKAT [facility] CPT- 4: 15693 10/09/2013 OFFICE/OUTPATIENT VISIT EST Diagnosis: COPD[ICD9: 496] Diagnosis: Acute exacerbation of chronic obstructive pulmonary disease (COPD)[ICD9: 491.21] Ruchi Buchanan LITA [facility] CPT-4: 07620 09/18/2013 ([id number]) OFFICE/OUTPATIENT VISIT EST Diagnosis: PNEUMONIA, ORGANISM[ICD9: 486] Diagnosis: DM W/O COMPLICATION TYPE II[ICD9: 250.00] Lita [facility] CPT-[facility]: 80960 08/13/2013 ([id number]) OFFICE/OUTPATIENT VISIT EST Diagnosis: DM W/O COMPLICATION TYPE II, UNCONTROLLED[ICD9: 250.02] Diagnosis: HYPERLIPIDEMIA NEC/NOS[ICD9: 272.4] Diagnosis: HYPERTENSION[ICD9: 401.9] Diagnosis: DYSPNEA[ICD9: 786.09] Diagnosis: Family history of CABG[ICD9: V17.49] Lita [facility] CPT-4: 01775 07/16/2013 ([id number]) OFFICE/OUTPATIENT VISIT EST Diagnosis: DM W/O COMPLICATION TYPE II, UNCONTROLLED[ICD9: 250.02] Diagnosis: HYPERLIPIDEMIA NEC/NOS[ICD9: 272.4] Diagnosis: HYPERTENSION[ICD9: 401.9] Lita Ramirez [facility] CPT-4: 07847 06/25/2013 OFFICE/OUTPATIENT VISIT EST Diagnosis: COUGH[ICD9: 786.2] Diagnosis: COPD[ICD9: 496] Kimberly [facility] CPT- [facility]: 17600 04/09/2013 ([id number]) OFFICE/OUTPATIENT VISIT EST Diagnosis: Muscle spasm[ICD9: 728.85] Diagnosis: ARTHRALGIA-MULTIPLE SITES[ICD9: 719.49] Lita Ramirez [facility] CPT-4: 61890 02/11/2013 OFFICE/OUTPATIENT VISIT EST Diagnosis: COPD with exacerbation[ICD9: 491.21] Diagnosis: BRONCHITIS, ACUTE[ICD9: 466.0] Ruchi Streeter [facility] CPT-4: 83544 01/31/2013 OFFICE/OUTPATIENT VISIT EST Diagnosis: COUGH[ICD9: 786.2] Diagnosis: PHARYNGITIS, ACUTE[ICD9: 462] Diagnosis: SINUSITIS, ACUTE[ICD9: 461.9] Lita Ramirez [facility] CPT-[facility]: 17075 01/20/2013 OFFICE/OUTPATIENT VISIT EST Diagnosis: DIZZINESS/VERTIGO[ICD9: 780.4] Lita BARAKAT [facility] CPT-4: 50821 12/19/2012 OFFICE/OUTPATIENT VISIT EST Diagnosis: Skin lesion of left arm[ICD9: 709.9] Diagnosis: Otitis externa[ICD9: 380.10] Diagnosis: PHARYNGITIS, ACUTE[ICD9: 462] Lita BARAKAT [facility] CPT-4: 45438 10/21/2012 ([id number]) OFFICE/OUTPATIENT VISIT EST Diagnosis: DM W/O COMPLICATION TYPE II, UNCONTROLLED[ICD9: 250.02] Diagnosis: HYPERLIPIDEMIA NEC/NOS[ICD9: 272.4] Diagnosis: HYPERTENSION[ICD9: 401.9] Lita AREVALO [facility] CPT-4: 86051 09/19/2012 ([id number]) OFFICE/OUTPATIENT VISIT EST Diagnosis: DM W/O COMPLICATION TYPE II, UNCONTROLLED[ICD9: 250.02] Diagnosis: HYPERLIPIDEMIA NEC/NOS[ICD9: 272.4] Diagnosis: COPD[ICD9: 496] Lita BARAKAT [facility] CPT- 4: 65794 09/18/2012 ([id number]) OFFICE/OUTPATIENT VISIT EST Diagnosis: BRONCHITIS, ACUTE[ICD9: 466.0] Diagnosis: SINUSITIS, ACUTE[ICD9: 461.9] Lita BARAKAT [facility] CPT-4: 65520 08/28/2012 ([id number]) OFFICE/OUTPATIENT VISIT EST Diagnosis: COPD[ICD9: 496] Diagnosis: DYSPNEA[ICD9: 786.09] Diagnosis: VAC STREP PNEUMONIAE-FLU (Medicare)[ICD9: V06.6] Lita BARAKAT [facility] CPT-4: 37523 07/10/2012 ([id number]) OFFICE/OUTPATIENT VISIT EST Diagnosis: DM W/O COMPLICATION TYPE II, UNCONTROLLED[ICD9: 250.02] Diagnosis: HYPERTENSION[ICD9: 401.9] Diagnosis: HYPERLIPIDEMIA NEC/NOS[ICD9: 272.4] Diagnosis: DIZZINESS/VERTIGO[ICD9: 780.4] Lita CASTELLANOSNDER DO [facility] CPT-4: 29485 05/09/2012 ([id number]) OFFICE/OUTPATIENT VISIT EST Diagnosis: DM W/O COMPLICATION TYPE II, UNCONTROLLED[ICD9: 250.02] Diagnosis: HYPERLIPIDEMIA NEC/NOS[ICD9: 272.4] Diagnosis: HYPERTENSION[ICD9: 401.9] Diagnosis: MALAISE AND FATIGUE[ICD9: 780.79] Lita GOODE Daja SFerdinand JASMINNDER DO [facility] CPT-4: 53807 05/06/2012 OFFICE/OUTPATIENT VISIT EST Diagnosis: COUGH[ICD9: 786.2] Diagnosis: SINUSITIS, ACUTE[ICD9: 461.9] Diagnosis: PHARYNGITIS, ACUTE[ICD9: 462] Lita CRAWFORD SFerdinand [facility]ASMIN[facility]ER DO [facility] CPT-4: 00295 10/02/2011 OFFICE/OUTPATIENT VISIT EST Diagnosis: DM W/O COMPLICATION TYPE II, UNCONTROLLED[ICD9: 250.02] Diagnosis: HYPERLIPIDEMIA NEC/NOS[ICD9: 272.4] Diagnosis: HYPERTENSION[ICD9: 401.9] Diagnosis: COPD[ICD9: 496] Lita HERRMANNQUELINE S. ORENDER DO [facility] CPT- 4: 70105 08/07/2011 OFFICE/OUTPATIENT VISIT EST Lita HERRMANNQUELINE S. ORE NDER DO [facility] CPT- 4: 02908 04/03/2011 ([id number]) OFFICE/OUTPATIENT VISIT EST Lita [facility] CPT-4: 47551 01/18/2011 ([id number]) OFFICE/OUTPATIENT VISIT EST Lita TOBAR SUZANNE S. ORENDER DO [facility] CPT-4: 71988 12/19/2010 ([id number]) OFFICE/OUTPATIENT VISIT, EST Lita HOLMAN S. ORENDER DO [facility] CPT-4: 26124 04/05/2010 ([id number]) OFFICE/OUTPATIENT VISIT, EST Lita HOLMAN S. ORENDER DO [facility] CPT-4: 42867 01/13/2010 ([id number]) OFFICE/OUTPATIENT VISIT, EST Lita [facility] CPT-4: 16218 12/23/2009 ([id number]) OFFICE/OUTPATIENT VISIT, [facility] CPT-4: 73715 12/22/2009 ([id number]) OFFICE/OUTPATIENT VISIT, [facility] CPT-4: 80947 12/13/2009 Plan of Care Planned Activity Notes [...] Care Plan: Referral Order SNOMED-CT : 30 [id number] Pending 11/12/2019 Care Plan: Referral Order SNOMED-CT : 30 8863525 Pending 11/12/2019 Visit Diagnosis Plan: Right thyroid nodule Discussion: Check thyroid US ICD-9 : 241.0 ICD-10 : E04.1 09/11/2019 Visit Diagnosis Plan: Chronic obstructive pulmonary di sease, unspecified Discussion: Start Pulmonary Rehab Reviewed results of CT of chest ordered by pulmonology Follow Up: 3 months ICD-9 : 496 ICD-10 : J44.9 09/11/2019 App[facility]ment[facility] [phone] [facility] [facility] 09/11/2019 Care Plan: US EXAM OF HEAD AND NECK LOIN C : 09550-1 Pending 09/11/2019 Visit Diagnosis Plan: Chronic bronchitis Discussion: A ugmentin for 10 days ICD-9 : 491.9 ICD-10 : J42 08/07/2019 Appointment: Lita Barakat WPtel: [address] [place] [address] ACUTE ILLNESS 08/07/2019 Visit Diagnosis Plan: Chronic [...] him that overuse of symbicort can cause alf damage and the albuterol is to be used every 4 hours as needed. call office later this week with worsening or no improvement ICD-9 : 491.21 ICD-10 : J44.1 07/14/2019 Appointment: Autumn Oneil [address] [place] [address] ACUTE ILLNESS 07/14/2019 Visit Diagnosis Plan: Primary [...] : K31.89 07/01/2019 Appointment: Lita Barakat WPtel: [address] [place] [address] US FOLLOW UP 07/01/2019 Care Plan: CT ABDOMEN W/O DYE LOINC : 36 103-0 Pending 07/01/2019 Care Plan: Referral Order SNOMED-CT : 30 9001687 Pending 07/01/2019 Visit Diagnosis Plan: Epigastric pain [...] R63.4 06/24/2019 Appointment: Lita [facility]at [facility] [phone] [facility] [facility] 06/24/2019 Patient Education: Seroquel- [employer] Coupon [id number] https://www.Nayatek/SubC Control/resources/getResource/61/3rl4i1k0-v082-63f3-16 Completed 06/24/2019 Patient Education: ondansetron HCl- [employer] Coupon [id number] https://www.Nayatek/SubC Control/resources/getResource/61/5727404a-1449-27c9-t6 Completed 06/24/2019 Care Plan: US EXAM ABDOM COMPLETE LOINC : 77046-7 Pending 06/24/2019 Visit Diagnosis Plan: Anemia Discussion: [...] : J44.9 06/17/2019 Appointment: Lita Barakat WPtel: [address] [place] [address] US FOLLOW UP 06/17/2019 Appointment: Lita Barakat WPtel: [address] [place], [place] [phone] US INJECTION 06/10/2019 Appointment: Lita Barakat WPtel: [address] [place] [address] US INJECTION 06/02/2019 Appointment: Lita Barakat WPtel: [address] [place] [address] US INJECTION 05/27/2019 Appointment: Lita Barakat WPtel: [address] [place] [address] US INJECTION 05/12/2019 Visit Diagnosis Plan: Vitamin [...] : D64.9 05/08/2019 Appointment: Lita Barakat WPtel: [address] [place] [address] US FOLLOW UP 05/08/2019 Visit Diagnosis Plan: Pain in right knee Discussion: S top tramadol and tylenol q HS Trial of Hydrocodone 10/325mg po q HS Recheck 1month ICD-9 : 719.46 ICD-10 : M25.561 04/07/2019 Appointment: Lita Barakat WPtel: [phone] [facility] Hospital Follow Up 04/07/2019 Visit Diagnosis Plan: [...] ICD-10 : F41.1 03/24/2019 Appointment: Autumn Oneil [address] [place], [place] [address] ACUTE ILLNESS 03/24/2019 Patient Education: hydroxyzine HCl- [employer] Coupon [id number] Completed 03/24/2019 Patient Education: pantoprazole- [employer] Coupon [id number] Completed 03/24/2019 Visit Diagnosis Plan: Dizziness and [...] fice. patient's portable oxygen tank was empty. [id number] patient on importance of monitoring oxygen tank to be sure it does not become empty when he's out of the house. patient states he has an extra one in the car that he will use. ICD-9 : 491.21 ICD-10 : J44.1 03/21/2019 Appointment: Autumn Oneil [address] ACUTE ILLNESS 03/21/2019 Patient Education: ipratropium-albuterol- [employer] José vang [id number] https://www.SubC Control.com/samplemd/resources/getResource/61/j4tj51f1-g9y8-8r2l-36 Completed 03/21/2019 Visit Diagnosis Plan: Chronic obstructiv e pulmonary disease with (acute) exacerbation Discussion: Solumedrol now Use SVNs with duoneb at least q4hrs Patient is supposed to be on continuous oxygen but not wearing ICD-9 : 491.21 ICD-10 : J44.1 03/13/2019 Visit Diagnosis Plan: Candidal stomatitis Discussion: Diflucan and Nystatin susp ICD-9 : 112.0 ICD-10 : B37.0 03/13/2019 Appointment: Lita Barakat WPtel: [phone] [facility] ACUTE ILLNESS 03/13/2019 Patient Education: losartan- [employer] Coupon [id number] Completed 03/13/2019 Patient Education: nystatin- [employer] Coupon [id number] Completed 03/13/2019 Patient Education: fluconazole- [employer] Coupon [id number] Completed 03/13/2019 Visit Diagnosis Plan: Restless legs [...] : J44.0 03/10/2019 Appointment: Lita Barakat WPtel: [address] [place], [place] [phone] ACUTE ILLNESS 03/10/2019 Visit Diagnosis Plan: Restless legs syndrome Discussio n: Stop requip Increase sinemet to TID Add children's chewable MV with iron BID Add magnesium oxide 400mg daily Add Lyrica 75mg po q HS Stop trazadone Recheck 3 weeks Follow Up: 3 weeks ICD-9 : 333.94 ICD-10 : G25.81 02/26/2019 Appointment: Lita Barakat WPtel: [address] [place], [place] [phone] ACUTE ILLNESS 02/26/2019 Visit Diagnosis Plan: Primary insomnia Discussion: Tri al of doxepin 10-20mg po q HS prn sleep ICD-9 : 780.52 ICD-10 : F51.01 02/13/2019 Visit Diagnosis Plan: Chronic obstructive pulmonary di sease, unspecified Discussion: Stable Discussed trip to [place]--will get oxygen setup through [facility] ICD-9 : 496 ICD-10 : J44.9 02/13/2019 Appointment: Lita Barakat WPtel: [address] [place], [place] [phone] FOLLOW UP 02/13/2019 Patient Education: doxepin- [employer] Coupon [id number] https://www.SubC Control.Death by Party/samplemd/resources/getResource/61/25f6b73d-[email or web address]-1k Completed 02/13/2019 Appointment: Lita Barakat WPtel: [address] [place], [place] [address] CANCELED 01/20/2019 Visit Diagnosis Plan: Chronic obstructive pulmonary di sease, unspecified Discussion: Stable on oxygen Given Symbicort samples Follow Up: 1 months ICD-9 : 496 ICD-10 : J44.9 01/14/2019 Appointment: Lita Barakat WPtel: [address] [place], [place] [phone] Hospital Follow Up 01/14/2019 Visit Diagnosis Plan: [...] : J96.11 12/25/2018 Appointment: Lita Barakat WPtel: [phone] [facility] Hospital Follow Up 12/25/2018 Appointment: Lita Barakat WPtel: [address] [facility] CANCELED 12/23/2018 Appointment: Ines Banerjee [facility] [place] [facility] CANCELED 12/20/2018 Visit Diagnosis Plan: Acute recurrent [...] ICD-10 : I10 12/09/2018 Appointment: Ines Banerjee [facility] [place] [facility] LAB 12/09/2018 Patient Education: cefdinir- [employer] Coupon [id number] https://www.SubC Control.Death by Party/samplemd/resources/getResource/61/[email or web address] Completed 12/09/2018 Visit Diagnosis Plan: Candidal stomatitis Discussion: Diflucan for 5 days Hold atorvastatin while taking ICD-9 : 112.0 ICD-10 : B37.0 12/05/2018 Appointment: Lita Barakat WPtel: [address] [place], [place] [id number] ACUTE ILLNESS 12/05/2018 Patient Education: fluconazole- [employer] Coupon [id number] https://www.Nayatek/SubC Control/resources/getResource/61/[email or web address] Completed 12/05/2018 Appointment: Lita Barakat WPtel: [address] [place], [place] [id number] NO SHOW 11/11/2018 Visit Plan: Saline nasal [...] : J01.91 10/23/2018 Appointment: Lita Barakat WPtel: [address] [place], [place] [id number] ACUTE ILLNESS 10/23/2018 Patient Education: prednisone- [employer] Coupon [id number] https://www.Nayatek/SubC Control/resources/getResource/61/[email or web address]-[email or web address] Completed 10/23/2018 Care Plan: A1C HPLC LOINC : [id number] Pending 09/10/2018 Care Plan: COMPREHEN METAB[place] : [address]-4 Pending 09/10/2018 Care Plan: CBC Pending 09/10/2018 [...] : G25.81 08/21/2018 Appointment: Lita Barakat WPtel: [address] [place] [address] ACUTE ILLNESS 08/21/2018 Care Plan: Referral Order SNOMED-CT : 30 [id number] Pending 08/21/2018 Visit Diagnosis Plan: Chronic obstructiv [...] : G25.81 08/07/2018 Appointment: Lita Barakat WPtel: [address] [place] [address] LM FOLLOW UP 08/07/2018 Appointment: Lita Barakattel: [address] [place] [address] 07/18/18 1210---see note in chart (km) CANCELED 07/18/2018 Visit Diagnosis Plan: Chronic obstructiv e pulmonary disease with acute lower respiratory infection Discussion: Solumedrol 125mg IM Change t o trelagy 1 inhalation daily Use SVNs with albuterol q4hrs To ER this weekend if worsens Monitor weight/swelling ICD-9 : 496 ICD-10 : J44.0 05/23/2018 Appointment: Lita Barakattel: [address] [place] [address] ACUTE ILLNESS 05/23/2018 Patient Education: Patient Medication Summary Completed 05/23/2018 Visit Diagnosis Plan: Candidal stomatitis Discussion: Diflucan for 7 more days--hold atrovastatin while taking ICD-9 : 112.0 ICD-10 : B37.0 05/02/2018 Appointment: Lita Barakat WPtel: [phone] [id number] FOLLOW UP 05/02/2018 Patient Education: Patient Medication [...] ICD-10 : J44.0 04/29/2018 Appointment: Autumn Oneil [address] [place], [place] [id number] ACUTE ILLNESS 04/29/2018 Patient Education: Patient Medication [...] J44.0 04/22/2018 Appointment: Lita Barakat WPtel: [address] [place], [place] [id number] Hospital Follow Up 04/22/2018 Patient Education: Patient Medication Summary Completed 04/22/2018 Appointment: Lita Barakat WPtel: [address] [place], [place] [phone] 04/09/18 1640---see message in chart from today [...] : M17.11 01/28/2018 Appointment: Lita Barakat WPtel: [address] [place], [place] [address] ACUTE ILLNESS 01/28/2018 Patient Education: Patient Medication Summary Completed 01/28/2018 Care Plan: Referral Order SNOMED-CT : 30 7893042 Pending 01/28/2018 Care Plan: Referral Order SNOMED-CT : 30 5627509 Pending 01/28/2018 Visit Diagnosis Plan: Functional dyspepsia Discussion: Protonix Call in 1 week on how doing ICD-9 : 536.8 ICD-10 : K30 01/23/2018 Visit Diagnosis Plan: Pain in right knee Discussion: T opical voltaren gel QID ICD-9 : 719.46 ICD-10 : M25.561 01/23/2018 Appointment: Lita Barakat WPtel: [address] [place] [address] ACUTE ILLNESS 01/23/2018 Patient Education: Patient Medication [...] N39.0 01/02/2018 Appointment: Lita Barakat WPtel: [address] ACUTE ILLNESS 01/02/2018 Patient Education: Patient [...] ICD-10 : J44.1 12/28/2017 Appointment: Autumn Oneil [address] [place] [address] Consult 12/28/2017 Patient Education: Patient Medication Summary [...] ICD-10 : J20.9 12/21/2017 Appointment: Autumn Oneil [address] [place], [place] [id number] ACUTE ILLNESS 12/21/2017 Patient Education: Patient Medication Summary Completed 12/21/2017 Care Plan: X-RAY EXAM OF KNEE 1 [place] 2 [place] : [address]-2 Pending 12/18/2017 Visit Diagnosis Plan: Pain in [...] ICD-10 : J44.0 12/17/2017 Appointment: Autumn Oneil [address] [place], [place] [id number] ACUTE ILLNESS 12/17/2017 Patient Education: Patient Medication Summary Completed 12/17/2017 Visit Diagnosis Plan: Unilateral primary osteoarthriti s, right knee Discussion: Right knee injection as above Warned of elevated BS after injection ICD-9 : 715.96 ICD-10 : M17.11 12/11/2017 Appointment: [facility]at [facility]Ptel[facility] [facility] [facility] 12/11/2017 Patient Education: Patient Medication Summary Completed 12/11/2017 Visit Diagnosis Plan: Actinic keratosis Discussion: Cr yotherapy as above If persists then will need excision by Dr. Swanson ICD-9 : 702.0 ICD-10 : L57.0 11/07/2017 Appointment: Lita Barakat WPtel: [address] [place] [address] ACUTE ILLNESS 11/07/2017 Patient Education: Patient Medication [...] : S61.411S 10/17/2017 Appointment: Lita Barakat WPtel: [address] [place] [address] ER Follow UP 10/17/2017 Patient Education: Patient Medication Summary Completed 10/17/2017 Appointment: Lita Barakat WPtel: [address] [place] [address] [place] Consult 08/15/2017 Visit Diagnosis Plan: Chronic [...] ICD-10 : J44.0 08/02/2017 Appointment: Autumn Oneil [address] [place] [address] ACUTE ILLNESS 08/02/2017 Patient Education: Patient Medication Summary Completed 08/02/2017 Patient Education: Patient Medication Summary Completed 07/31/2017 Care Plan: CHEST X-RAY 2VW FRONTAL&LATL LOINC : 11680-8 Pending 07/31/2017 Appointment: Lita Barakat WPtel: [address] [place], [place] [phone] [place] INJECTION 07/24/2017 Patient Education: Patient Medication [...] ICD-10 : J44.1 07/02/2017 Appointment: Autumn Oneil [address] [place] [address] ACUTE ILLNESS 07/02/2017 Patient Education: Patient Medication Summary Completed 07/02/2017 Care Plan: CHEST X-RAY 2VW FRONTAL&LATL LOINC : 49644-2 Pending 07/02/2017 Care Plan: MRI LUMBAR SPINE W/O DYE LOIN C : 22683-4 Pending 05/30/2017 Visit Plan: MRI at [facility] [place] codone 5.325 1 po q 4-6 hours prn pain #40 NR and Cyclobenzaprine (ERx) Continue warm packs for pain RTC if no improvement 05/29/2017 Appointment: Ruchi Buchanan WPtel: [address] [place], [place] [phone] ACUTE ILLNESS 05/29/2017 Patient Education: Patient Medication Summary Completed 05/29/2017 Appointment: Lita Barakat WPtel: [address] [place], [place] [address] [place] CANCELED 05/24/2017 Patient Education: Patient Medication Summary Completed 05/22/2017 Care Plan: X-RAY EXAM L-S SPINE 2/3 VWS LOINC : 82865-5 Pending 05/22/2017 Appointment: Lita Barakat WPtel: [address] [place], [place] [phone] [place] LAB 04/17/2017 Patient Education: Patient Medication Summary Completed 04/17/2017 Referral: Cassidy Demetrius WPtel: 1201 [facility] Referral Initiated 04/05/2017 Appointment: Lita Barakat WPtel: [address] [place], [place] [phone] 03/30/17 0930---spoke with patient about ointments (km Consult 03/30/2017 Appointment: Lita Barakat WPtel: [address] [place], [place] [id number] 03/29/17 1320---spoke with patient, requip refilled wasn't received at pharmacy so verbally called (km) Consult 03/29/2017 Patient Education: Patient Medication Summary Completed 03/01/2017 Care Plan: CHEST X-RAY 2VW FRONTAL&LATL LOINC : 56156-6 Pending 03/01/2017 Visit Diagnosis Plan: Bursitis of left shoulder Discus yesi: Injection as above ICD-9 : 726.10 ICD-10 : M75.52 02/01/2017 Appointment: Lita Barakat WPtel: [address] [place], [place] [id number] 01/31 confirmed ~sl WORK IN 02/01/2017 Patient Education: Patient Medication Summary Completed 02/01/2017 Care Plan: X-RAY EXAM OF SHOULDER LOINC : 02329-9 Pending 01/30/2017 Visit Plan: May take OTC Tylenol/Ibuprof en as directed XRay at [facility] of left shoulder Tramadol 50mg 1 po q 6 hours prn pain called to [facility]. Sedation warning given (no driving, etc) RTC if no improvement 01/29/2017 Appointment: Ruchi Buchanan WPtel: [address] [place], [place] [id number] ACUTE ILLNESS 01/29/2017 Appointment: Ruchi Buchanan WPtel: [address] [place] [address] ACUTE ILLNESS 01/29/2017 Patient Education: Patient Medication Summary Completed 01/29/2017 Appointment: Lita Barakattel: [address] [place] [address] [place] Consult 01/10/2017 Appointment: Lita Barakat WPtel: [address] [place] [address] 12/27/2016 Patient Education: Patient Medication Summary Completed [...] 280.9 ICD-10 : D50.8 12/21/2016 Appointment: Lita Barakat WPtel: [address] [place] [address] ACUTE ILLNESS 12/21/2016 Patient Education: Patient Medication Summary Completed 12/21/2016 Appointment: Lita Barakat WPtel: [address] [place] [address] CANCELED 12/18/2016 Visit Diagnosis Plan: Restless legs [...] D64.9 12/14/2016 Appointment: Lita Barakat WPtel: [phone] [facility] 12/13 confirmed ~sl WORK IN 12/14/2016 Appointment: Lita Barakat WPtel: [address] [place], [place] [id number] [place] CANCELED 12/14/2016 Patient Education: Patient Medication Summary Completed 12/14/2016 Appointment: Lita Barakat WPtel: [address] [place], [place] [address] [place] LAB 12/12/2016 Patient Education: Patient Medication Summary Completed 12/12/2016 Appointment: Lita Barakat WPtel: [address] [place], [place] [address] in ER this weekend--called for reports Consult 12/11/2016 Appointment: Lita Barakat WPtel: [address] [place], [place] [address] [place] CANCELED 12/04/2016 Visit Diagnosis Plan: Pneumonia, [...] : G25.81 11/14/2016 Appointment: Magda Toth [facility] MEDICATION REVIEW 11/14/2016 Patient Education: Patient Medication Summary Completed 11/14/2016 Appointment: Lita Barakat WPtel: [address] [place], [place] [phone] [place] RESCHEDULED 11/02/2016 Visit Diagnosis Plan: Candidal stomatitis Discussion: Diflucan and Nystatin Hold atorvastatin while taking diflucan ICD-9 : 112.0 ICD-10 : B37.0 10/31/2016 Appointment: Lita Barakat WPtel: [address] [place] [address] ACUTE ILLNESS 10/31/2016 Patient Education: Patient Medication Summary Completed 10/31/2016 Appointment: Lita Barakat WPtel: [address] [place] [address] [place] Consult 10/23/2016 Appointment: Lita Barakat WPtel: [address] [place], [place] [phone] [place] CANCELED 10/18/2016 Visit Plan: Rx as above Wear O2 at all t imes as instructed by Dr Chacon Continue breathing treatments Supportive care otherwise reviewed Follow up ingrid if not improving 10/03/2016 Appointment: Lita Barakat WPtel: [address] [place], [place] [phone] [place] CANCELED 10/03/2016 Appointment: Magda Toth [address] [place] [address] ACUTE ILLNESS 10/03/2016 Patient Education: Patient Medication Summary Completed 10/03/2016 Visit Plan: Titrate requip to 1.5mg x 1 week Call if not helpful and will increase to 2mg qHS NO MORE nyquil at bedtime - discussed potential effects of decongestants on heart, oversedating himself, etc Will increase requip, then amitriptyline if needed to desired effect 09/04/2016 Appointment: Magda Toth [address] [place] [address] ACUTE ILLNESS 09/04/2016 Patient Education: Patient Medication Summary Completed 09/04/2016 Visit Plan: Stop requip and try elavil C ryotherapy as above See ENT for removal of right ear lesion 08/22/2016 Appointment: Lita Barakat WPtel: [address] [place] [address] ACUTE ILLNESS 08/22/2016 Patient Education: Patient Medication Summary Completed 08/22/2016 Visit Plan: Trial of requip 1mg q HS Res tart zoloft Recheck 1month 08/10/2016 Appointment: Lita Barakat WPtel: [address] [place] [address] ACUTE ILLNESS 08/10/2016 Patient Education: Patient Medication Summary Completed 08/10/2016 Visit Plan: Stop HCTZ Flagyl for diarrhe a Hydrate Discussed meds for restless legs Zofran prn Nausea 07/06/2016 Appointment: Lita Barakat WPtel: [address] [place] [address] 07/05 confirmed~sl Hospital Follow Up 07/06/2016 Patient Education: Patient Medication Summary Completed 07/06/2016 Visit Plan: Reviewed with Dr Gasper Palacios sidering his recent history, instructed him to go straight to the ER called to notify her so she can meet him there 06/22/2016 Appointment: Magda Toth [address] [place] [address] ACUTE ILLNESS 06/22/2016 Patient Education: Patient Medication Summary Completed 06/22/2016 Visit Plan: Continue current meds Prevna r 13 and High Dose Flu given 06/13/2016 Appointment: Lita Barakat WPtel: [address] [place] [address] 06/13 confirmed~sl WORK IN 06/13/2016 Patient Education: Patient Medication Summary Completed 06/13/2016 Appointment: Lita Barakat WPtel: [address] [place] [address] just went over current medications CANCELED 06/08/2016 Visit Plan: Reviewed POC with Dr Barakat Stat cbc, cmp, d dimer, troponin, bnp, ekg, cxr If any worsening of symptoms while awaiting results, patient instructed to go to ER or call 911 06/01/2016 Appointment: Magda Toth 2305 [facility] ACUTE ILLNESS 06/01/2016 Patient Education: Patient Medication Summary Completed 06/01/2016 Referral: José Miguel Swanson WPtel: [address] 04/[address] swanson's office, patient [...] and treatment 04/26/2016 Appointment: Magda Toth 2305 [facility] ACUTE ILLNESS 04/26/2016 Patient Education: Patient Medication Summary Completed 04/26/2016 Care Plan: Referral Order SNOMED-CT : 30 2152408 Pending 04/26/2016 Visit Plan: Left ear flushed after conse nt with warm water with peroxide with ear syringe Patient tolerated well Ear exam is wnl following flushing Follow up PRN 04/05/2016 Appointment: Magda Toth Lianna [facility]6[address] ACUTE ILLNESS 04/05/2016 Patient Education: Patient Medication Summary Completed 04/05/2016 Visit Plan: Increase Levemir to 25u sc d aily Increase sertraline to 2 full tablets daily--200mg Debrox or cerumenex to bilateral ears q HS for 3 nights then flush or fwup for fushing Check lab in 2mos then fwup 04/03/2016 Appointment: Lita Barakat WPtel: [address] [place], [place] [phone] 03/31 7 lm ~sl FOLLOW UP 04/03/2016 Patient Education: Patient Medication Summary Completed 04/03/2016 Visit Plan: Patient informed of correct dosage of levemir and how to administer. Patient verbalizes understanding and will call if any questions/concerns. 10 Units of Levemir given in office SC to right lower abdom en. Patient tolerated well. Site without redness/irritation. 03/13/2016 Appointment: Lita Barakat WPtel: [address] [place], [place] [phone] SPECIAL 03/13/2016 Patient Education: Patient Medication Summary Completed 03/13/2016 Appointment: Lita Barakat WPtel: [address] [place], [place] [id number] LAB 03/06/2016 Patient Education: Patient Medication Summary Completed 03/06/2016 Visit Plan: Patient saw Dr. Chacon this week and was given prednisone taper for COPD Continue current meds Accuchecks daily Patient will return on Sunday morning for fasting lab incuding CBC, CMP, TSH, free T4, HbA1C, Lipids, Testosterone, PSA 03/02/2016 Appointment: Lita Barakat WPtel: [address] [place] [address] 03/01 confirmed ~sl FOLLOW UP 03/02/2016 Patient [...] how doing 02/17/2016 Appointment: Lita Barakat WPtel: [address] [place] [address] WORK IN 02/17/2016 Patient Education: Patient Medication Summary Completed 02/17/2016 Visit Plan: Xrays to further evaluate Alvarez spect heel spur(s) Will call with results Has had injections in the past that were helpful Dr Barakat can do them or can refer to podiatry if warranted 02/14/2016 Appointment: Magda Toth [address] [place] [address] ACUTE ILLNESS 02/14/2016 Patient Education: Patient Medication Summary Completed 02/14/2016 Visit Plan: Increase Zoloft to 150mg cooper ly 01/31/2016 Appointment: Lita Barakat WPtel: [address] [place], [place] [address] [place] 01/26 confirmed `sl FOLLOW UP 01/31/2016 Patient Education: Patient Medication Summary Completed 01/31/2016 Visit Plan: Decrease citalopram to 20mg q AM for 1 week then stop Start zoloft 50mg q HS for 1 week then increase to 100mg q HS 12/30/2015 Appointment: Lita Barakat WPtel: [address] [place] [address] [place] 12/28 confirmed~sl ACUTE ILLNESS 12/30/2015 Patient Education: Patient Medication Summary Completed 12/30/2015 Visit Plan: Check Neck US 12/16/2015 Appointment: Lita Barakat WPtel: [address] [place], [place] [phone] 12/14 lm ~sl 12/15 confirmed-sp FOLLOW UP 12/16/2015 Patient Education: Patient Medication Summary Completed 12/16/2015 Care Plan: US EXAM OF HEAD AND NECK LOIN C : 57079-9 Ordered 12/16/2015 Appointment: Stephanie Rios WPtel: [address] [place], [place] [id number] [place] 12/09 confirmed-sp 12/12 lm ~sl Patient [...] PO TID 12/06/2015 Appointment: Stephanie Rios WPtel: [address] [place], [place] [id number] ACUTE ILLNESS 12/06/2015 Patient Education: Patient Medication Summary Completed 12/06/2015 Referral: Lisbeth Darby WPtel: [facility] [address] [facility] 11/18/15 called luther at [place] office and confirmed time and date of appointment with patient~sl Initiated 11/18/2015 Visit Plan: Referral to Dermatology for removal of facial skin lesions Cefdinir PO bid Topical Mupirocin to skin lesions bid 11/15/2015 Appointment: Stephanie Rios WPtel: [address] [place], [place] [id number] ACUTE ILLNESS 11/15/2015 Patient Education: Patient Medication Summary Completed 11/15/2015 Visit Plan: Continue current meds Accuch ecks daily Fwup with ophthamology as scheduled Will check lab in 3mos then fwup due to recent meds that will affect blood sugar 10/05/2015 Appointment: Lita Barakat WPtel: [address] [place], [place] [phone] 10/04/15 appt confirmed cn Annual Well Visit 08/2016 Patient Education: Patient Medication Summary Completed 10/05/2015 Visit Plan: Trajenta -1 sample box given Return visit in 6 weeks for fasting labs Notify for worsening symptoms such as Increased redness, swelling, pain or drainage of Rt. knee 07/22/2015 Appointment: Stephanie Rios WPtel: [address] [place], [place] [address] 07/21 vm left cn FOLLOW UP 07/22/2015 Patient Education: Patient Medication Summary Completed 07/22/2015 Visit Plan: Continue to change dressing twice daily and apply Mupirocin Complete Doxycycline as directed. Follow-up for worsening symptoms, such as increased swelling, redness or pain. 07/01/2015 Appointment: Stephanie Rios WPtel: [address] [place], [place] [id number] FOLLOW UP 07/01/2015 Patient Education: Patient Medication Summary Completed 07/01/2015 Visit Plan: Pressure dressing applied to draining wound left knee. Instructed to change dressing twice daily and continue Mupirocin topical Doxycycline PO bid x 10 days Wound culture obtained. Wound tissue sent to pathology Follow-up in 3 days 06/28/2015 Appointment: Stephanie Rios WPtel: [address] [place], [place] [phone] ACUTE ILLNESS 06/28/2015 Patient Education: Patient Medication Summary Completed 06/28/2015 Visit Plan: Complete antibiotics Follow- up for increased tenderness, swelling or drainage. 06/09/2015 Appointment: Stephanie Rios WPtel: [facility] 06/08/15 lm FOLLOW UP 06/09/2015 Patient Education: Patient Medication Summary Completed 06/09/2015 Visit Plan: Apply pressure dressing toda y Continue antibiotics and topical Mupirocin Follow-up in 2 days Bursa drained from open area using pressure--serosanguinous drainage 06/07/2015 Appointment: Stephanie Rios WPtel: [facility] 06/04/15 confirmed with patient FOLLOW UP 0 06/07/2015 Patient Education: Patient Medication Summary Completed 06/07/2015 Visit Plan: Wound culture Lt. knee Apply mupirocin to open wound bid Clindamycin 600 mg PO bid x 10 days Follow-up on Sunday06/03/2015 Appointment: Stephanie Rios WPtel: [address] [place], [place] [phone] ACUTE ILLNESS 06/03/2015 Patient Education: Patient Medication Summary Completed 06/03/2015 Visit Plan: Accuchecks daily Check CMP, HbA1C today Patient is noncompliant with meds and diet but patient says he is doing everything he is supposed to do Wants to try performomist instead of albuterol in SVN 06/01/2015 Appointment: Lita Barakat WPtel: [address] [place], [place] [address] 05/28 appt confirmed cn FOLLOW UP 06/01/20 Patient Education: Patient Medication Summary Completed 06/01/2015 Visit Plan: Change Breo Ellipta to Advai r 500/50 1 p BID this next month Continue turdoza Use albuterol prn Check CMP, HbA1C today Accuchecks daily Cryotherapy as above 02/25/2015 Appointment: Lita Barakat WPtel: [facility] 02/24 appt confirmed and explained needed payment he said ok FOLLOW UP 02/25/2015 Patient Education: Patient Medication Summary Completed 02/25/2015 Referral: Lopez Chacon [facility] [address] [facility] C&D [id number] US Will put patient on cancellation list Initiated 12/08/2014 Appointment: Lita Barakat WPtel: [address] [place] [address] Hospital Follow Up 10/29/2014 Visit Plan: Finish prednisone Continue S VNs with albuterol QID See pulmonology and start Pulmonary rehab Once again discussed taking it easy this winter--that he is high risk for exacerbation 10/27/2014 Appointment: Lita Barakat WPtel: [address] [place] [address] FOLLOW UP 10/27/2014 Patient Education: Patient Medication Summary Completed 10/27/2014 Appointment: Lita Barakat WPtel: [address] [place], [place] [id number] FOLLOW UP 10/26/2014 Appointment: Stephanie Rios WPtel: [address] [place] [address] WORK IN 10/21/2014 Patient Education: Patient Medication Summary Completed 10/21/2014 Patient Education: Patient Medication Summary Completed 10/19/2014 Visit Plan: Continue oxygen and SVNS wit h duoneb Increase farxiga to 10mg daily Diflucan 100mg daily for 1week 10/06/2014 Appointment: Lita Barakat WPtel: [address] [place], [place] [phone] Moved appt time to 2:45pm FOLLOW UP 2014 Patient Education: Patient Medication Summary Completed 10/06/2014 Visit Plan: Finish omnicef Continue Breo BID and Turdoza Use SVNS with duoneb at least TID for next 2weeks then go to prn 09/21/2014 Appointment: Lita Barakat WPtel: [address] [place] [address] Hospital Follow Up 09/21/2014 Patient Education: Patient Medication Summary Completed 09/21/2014 Patient Education: [facility] - [employer] - Ventolin HFA - 18+ - Dynamic Portal ID Completed 09/21/2014 Appointment: Stephanie Rios WPtel: [address] [place], [place] [id number] Scheduled by 09/07 patient rescheduled to 09/08 with Stephanie. Hospital Follow Up 09/08/2014 Patient Education: Patient Medication Summary Completed 09/08/2014 Appointment: Stephanie Rios WPtel: [address] [place], [place] [id number] FOLLOW UP 09/02/2014 Patient Education: Patient Medication Summary Completed 09/02/2014 Patient Education: [employer] - Antibi otics, Analgesics 18+, Oral Contraceptives F 18+ Completed 09/02/2014 Appointment: Lita Barakat WPtel: [address] [place], [place] [phone] UA 08/27/2014 Patient Education: Patient Medication Summary [...] prn sleep 08/10/2014 Appointment: Lita Barakat WPtel: [address] [place], [place] [address] Annual Well Visit 08/10/2014 Patient Education: Patient Medication Summary Completed 08/10/2014 Appointment: Lita Barakat WPtel: [address] [place], [place] [phone] LAB 08/05/2014 Patient Education: Patient Medication Summary Completed 08/05/2014 Visit Plan: ECHO results reviewed Contin ue Breo and Turdoza Pt starts PT this afternoon for back--has had one epidural with no help in pain 05/05/2014 Appointment: Lita Barakat WPtel: [address] [place] [address] FOLLOW UP 05/05/2014 Patient Education: Patient Medication Summary Completed 05/05/2014 Visit Plan: Continue Breo and Turdoza Camargo s heart tests scheduled next week Will see surgeon for removal of skin cancer to neck after done with cardiac workup 03/24/2014 Appointment: Lita Barakat WPtel: [address] [place] [address] FOLLOW UP 03/24/2014 Patient Education: Patient Medication Summary Completed 03/24/2014 Visit Plan: Proceed with cardiology eval uation as patient is has numerous risk factors for CAD Change Symbicort to Breo 1p BID and add Turdorza 1p BID Recheck in weeks Check 2-D ECHO and lexiscan 03/10/2014 Appointment: Lita Barakat WPtel: [address] [place] [address] FOLLOW UP 03/10/2014 Patient Education: Patient Medication Summary Completed 03/10/2014 Visit Plan: Shoulder injection as above Back brace to use when doing any lifting for stability 12/16/2013 Appointment: Lita Barakat WPtel: [address] [place] [address] ACUTE ILLNESS 12/16/2013 Patient Education: Patient Medication Summary Completed 12/16/2013 Visit Plan: Continue symbicort and Turdo za Salt water gargles Omnicef 300mg 2 po daily for 1wk Phenergan with codeine 10/09/2013 Appointment: Lita Barakat WPtel: [address] [place] [address] WORK IN 10/09/2013 Patient Education: Patient Medication Summary Completed 10/09/2013 Appointment: Ruchi Buchanan WPtel: [address] [place] [address] ACUTE ILLNESS 09/18/2013 Patient Education: Patient Medication Summary Completed 09/18/2013 Visit Plan: Check on repeat CXR Finish a bx Start Tradjenta to replace metformin 08/13/2013 Appointment: Lita Barakat WPtel: [address] [place] [address] 08/12 Hospital Follow Up 08/13/2013 Patient Education: Patient Medication Summary Completed 08/13/2013 Visit Plan: Admit to hospital 08/06/2013 Appointment: Stephanie Rios WPtel: [address] [place] [address] ACUTE ILLNESS 08/06/2013 Patient Education: Patient Medication Summary Completed 08/06/2013 Visit Plan: Continue current meds Contin ue accuchecks daily Proceed with stress test due to high risk for CAD 07/16/2013 Appointment: Lita Baarkat WPtel: [address] [place] [address] FOLLOW UP 07/16/2013 Patient Education: Patient Medication Summary Completed 07/16/2013 Appointment: Lita Barakat WPtel: [address] [place] [address] LAB 06/25/2013 Patient Education: Patient Medication Summary Completed 06/25/2013 Visit Plan: prednisone and azithromycin. Doing CBC and mycoplasma blood draw. Will continue inhaler and albuterol breathing treatments. 04/09/2013 Appointment: Kimberly Villalba WPtel: [address] [place] [address] ACUTE ILLNESS 04/09/2013 Patient Education: Patient Medication Summary Completed 04/09/2013 Appointment: Lita Barakat WPtel: [address] [place] [address] ACUTE ILLNESS 02/11/2013 Patient Education: Patient Medication Summary Completed 02/11/2013 Appointment: Ruchi Buchanan WPtel: [address] [place] [address] ACUTE ILLNESS 01/31/2013 Patient Education: Patient Medication Summary Completed 01/31/2013 Visit Plan: Cefdinir and medrol dose pac k. Codeine/guiaf cough syrup. Has colonoscopy on Sunday. Pt. is to notify if fever occurs or symptoms worsen. Hydration and rest. 01/20/2013 Appointment: Kimberly Villalba WPtel: [address] [place] [address] ACUTE ILLNESS 01/20/2013 Patient Education: Patient Medication Summary Completed 01/20/2013 Visit Plan: Scopalamine patch and vestib ular exercises 12/19/2012 Appointment: Lita Barakat WPtel: [address] [place] [address] ACUTE ILLNESS 12/19/2012 Patient Education: Patient Medication Summary Completed 12/19/2012 Visit Plan: Dr. Swanson consult if no impr ovement in hearing. Pt. reports he will notify if no better in one week. [facility]am consult for skin lesion. 10/21/2012 Appointment: Kimberly Villalba WPtel: [address] [place] [address] ACUTE ILLNESS 10/21/2012 Patient Education: Patient Medication Summary Completed 10/21/2012 Appointment: Lita Barakattel: [address] [place] [address] LAB 09/19/2012 Patient Education: Patient Medication Summary Completed 09/19/2012 Visit Plan: Check fasting lab in AM--CMP , Lipids, HbA1C 09/18/2012 Appointment: Lita Barakat WPtel: [address] [place] [address] FOLLOW UP 09/18/2012 Patient Education: Patient Medication Summary Completed 09/18/2012 Appointment: Lita Barakattel: [address] [place] [address] appt time scheduled sooner FOLLOW UP 09/05 Visit Plan: Doxycycline and Prednisone I ncrease SVN to QID Add back Symbicort 160/4.5 2 p BID 08/28/2012 Appointment: Lita Barakat WPtel: [address] [place], [place] [phone] [place] FOLLOW UP 08/28/2012 Patient Education: Patient Medication Summary Completed 08/28/2012 Appointment: Lita Barakat WPtel: [address] [place], [place] [id number] Annual Well Visit 07/10/2012 Patient Education: Patient Medication Summary Completed 07/10/2012 Visit Plan: Finish Z-pack Add Nasonex Ad d Meclizine Vestibular exercises Continue current meds and accuchecks Check lab and fwup in 4mos 05/09/2012 Appointment: Lita Barakat WPtel: [address] [place], [place] [phone] [place] number no longer works FOLLOW UP 2 Patient Education: Patient Medication Summary Completed 05/09/2012 Appointment: Lita Barakat WPtel: [address] [place], [place] [phone] [place] LAB 05/06/2012 Patient Education: Patient Medication Summary Completed 05/06/2012 Appointment: Lita Barakat WPtel: [address] [place], [place] [phone] [place] LAB 05/02/2012 Appointment: Lita Barakat WPtel: [address] [place], [place] [phone] [place] INJECTION 02/05/2012 Patient Education: Patient Medication Summary Completed 02/05/2012 Visit Plan: cefdinir. Will focus on rest and fluids. Pt. reports he is using breathing treatments as needed. Pt. will monitor for worsening symptoms or fever. 10/02/2011 Appointment: Kimberly Villalba WPtel: [address] [place], [place] [id number] ACUTE ILLNESS 10/02/2011 Patient Education: Patient Medication Summary Completed 10/02/2011 Appointment: Lita Barakat WPtel: [address] [place], [place] [phone] [place] INJECTION 08/10/2011 Patient Education: Patient Medication Summary Completed 08/10/2011 Visit Plan: Continue current meds Restar t Advair Restart exercise Flu shot given 08/07/2011 Appointment: Lita Barakattel: [address] [place], [place] [phone] [place] FOLLOW UP 08/07/2011 Patient Education: Patient Medication Summary Completed 08/07/2011 Appointment: Lita Barakattel: [address] [place], [place] [phone] [place] LAB 07/26/2011 Patient Education: Patient Medication Summary Completed 07/26/2011 Visit Plan: ALEKSANDER Carmen Continue Metformin but change to BID Add Lantus 25u sc q PM BS readings in 1wk 04/03/2011 Appointment: Lita Barakattel: [address] [place], [place] [id number] ACUTE ILLNESS 04/03/2011 Patient Education: Patient Medication Summary Completed 04/03/2011 Appointment: Lita Barakat WPtel: [address] [place] [phone] [place] INJECTION 01/19/2011 Patient Education: Patient Medication Summary Completed 01/19/2011 Appointment: Lita Barakattel: [address] [place] [phone] [place] ACUTE ILLNESS 01/18/2011 Patient Education: Patient Medication Summary Completed 01/18/2011 Appointment: Lita Barakattel: [address] [place] [phone] [place] INJECTION 12/21/2010 Patient Education: Patient Medication Summary Completed 12/21/2010 Appointment: Lita Barakattel: [address] [place] [phone] [place] FOLLOW UP 12/19/2010 Patient Education: Patient Medication Summary Completed 12/19/2010 Appointment: Lita Barakat WPtel: [address] [place] [phone] [place] LAB 12/07/2010 Patient Education: Patient Medication Summary Completed 12/07/2010 Appointment: Kimberly Villalba WPtel: [address] [place], [place] [phone] ACUTE ILLNESS 04/05/2010 Patient Education: Patient Medication Summary Completed 04/05/2010 Appointment: Lita Barakat WPtel: [address] [place] [phone] WORK IN 03/14/2010 Patient Education: Patient Medication Summary Completed 03/14/2010 Appointment: Lita Barakat WPtel: [address] [place] [phone] [place] LAB 03/02/2010 Visit Plan: HbA1C in 3mos. Continue Accu checks BID alternating times. Switch lexapro to celexa 01/13/2010 Appointment: Lita Barakat WPtel: [address] [place], [place] [phone] FOLLOW UP 01/13/2010 Patient Education: Patient Medication Summary Completed 01/13/2010 Appointment: Lita Barakat WPtel: [address] [place], [place] [id number] FOLLOW UP 01/11/2010 Visit Plan: Pt. will continue the Avalox and Doxycycline regimen as prescribed the previous day. He has been advised to continue inhalers, breathing treatments and oxygen therapy for at least the weekend. Moderate activity without strenuous exercise. The pt. will seek immediate re-eval if his symptoms worsen. 12/23/2009 Appointment: Kimberly Villalba WPtel: [address] [place], [place] [phone] FOLLOW UP 12/23/2009 Patient Education: Patient Medication [...] tomorrow morning. 12/22/2009 Appointment: Kimberly Villalba WPtel: [address] [place] [address] ACUTE ILLNESS 12/22/2009 Patient Education: Patient Medication Summary Completed 12/22/2009 Appointment: Kimberly Villalba WPtel: [address] [place] [address] FOLLOW UP 12/21/2009 Appointment: Lita Barakat WPtel: [address] [place] [address] [place] INJECTION 12/16/2009 Patient Education: Patient Medication Summary Completed 12/16/2009 Appointment: Kimberly Villalba WPtel: [address] [place] [address] ACUTE ILLNESS 12/13/2009 Patient Education: Patient Medication Summary Completed 12/13/2009 Care Plan: X-RAY EXAM OF SHOULDER lt shoulder (pain ra diates across the shoulder) Hand carried orders to [facility] LOINC : 43927-3 Ordered 12/13/2009 Care Plan: X-RAY EXAM THORAC SPINE 2VWS Hand carried order LOINC : 18279-0 Ordered 12/13/2009 Care Plan: X-RAY EXAM RIBS UNI 2 VIEWS Posterior ribs of lt. side Pt. hand carries order to [facility] LOINC : 39922-1 Ordered 12/13/2009 Referral: José Miguel Swanson WPtel: [address] [address] [place] Referral Appointment Requested Referral: José Miguel Swanson WPtel: [address] [address] [place] Referral Appointment Requested Referral: Chandu Quarles WPtel: [address] [place] [address] Quarles for screening colonoscopy. P atient notified that [facility] office will book appt with him Initiated Referral: Santosh Machado WPtel: [facility] [place] A [id number] [place] Referral Appointment Requested Referral: José Miguel Swanson WPtel: [address] [address] [place] Referral Initiated Referral: Lopez Chacon [address] [facility] [address] [place] [address] [place] Referral Initiated Referral: Demetrius Rodriguez WPtel: [address] [address] [place] Referral Appointment Requested Referral: José Miguel Swanson WPtel: [address] [address] [place] Referral Appointment Requested Referral: José Miguel Swanson WPtel: [address] [address] [place] Referral Initiated Instructions Comment . Saline nasal flushes prn. Tylenol/Motr in prn headache. Notify if persists/symptoms worsening. . MRI at [facility] Hydrocodone 5.325 1 po q 4-6 [...]
[2019-12-31] MEDS ORDERED: NITROGLYCERIN 0.4 MG SL TABS BTL 25'S SL PRN (00:45)
[2019-12-31] MEDS ORDERED: ONDANSETRON 4 MG/2 ML (SDV) Z0FRAN IV PRN (00:45)
[2019-12-31] MEDS ORDERED: morphine INJ 4 MG/ML 1 ML (VIAL/SYRINGE) IV PRN (00:45)
--- OUTSIDE RECORDS SUMMARY | 2019-12-31 01:37 | XMS REPORT | Continuity of Care Document ---
Author Organization Unknown Address Unknown Phone Unavailable Allergies Active Description Code Type Severity Reaction Onset Reported/Identified Relationship to Patient Clinical Status Yes No Known Drug Allergies [id number] Drug Allergy Unknown N/A 06/20/2018 Yes tramadol [id number] Drug Allergy Unknown NAUSEA 12/15/2018 Yes hydrocodone [id number] Drug Aller gy Unknown NAUSEA 03/25/2019 Yes oxycodone [id number] Drug Allergy Unknown NAUSEA 03/25/2019 Yes hydrocodone [id number] Drug Aller gy Mild NAUSEA 07/25/2019 Yes oxycodone [id number] Drug Allergy Mild NAUSEA 07/25/2019 Medications There is no data. 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 12/18/2009 Ot 959.19 OTH INJURY OF OTHER SITES OF TRUNK 12/18/2009 Ot E000.8 OTH ER EXTERNAL CAUSE STATUS 12/18/2009 Ot E030 UNSPE CIFIED ACTIVITY 12/18/2009 Ot E849.0 ACC IDENT IN HOME 12/18/2009 Ot E928.9 ACC IDENT NOS 08/09/2013 JERMAIN BARAKAT DOLINE S Ot 250.00 DIAB HOLLIE WO COMPL, TYPE II OR UNSPEC TY 08/09/2013 JERMAIN BARAKAT DOLINE S Ot 268.9 VITAMIN D DEFICIENCY NOS 08/09/2013 JERMAIN BARAKAT DOLINE S Ot 272.4 HYPERLIPIDEMIA NEC/NOS 08/09/2013 JERMAIN BARAKAT DOLINE S Ot 300.00 ANXIETY STATE NOS 08/09/2013 ALIZE BARAKAT DOQUELINE S Ot 311 DEPRESSIVE DISORDER NEC 08/09/2013 JERMAIN BARAKAT DOLINE S Ot 403.90 HYPTNSV CHR KID DIS, UNSPEC, W CHR KD ST 08/09/2013 JERMAIN BARAKAT DOLINE S Ot 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 08/09/2013 JASMINNDER ALIZE JOHNSONLITA S Ot 486 PNEUMONIA, ORGANISM NOS 08/09/2013 ARMINER JERMAIN JOHNSONLINE S Ot 491.21 OBSTR CHRONIC BRONCHITIS, W (ACUTE) EXAC 08/09/2013 JERMAIN BARAKAT DOLINE S Ot 530.81 ESOPHAGEAL REFLUX 08/09/2013 JERMAIN BARAKAT DOLINE S Ot 585.9 CHRONIC KIDNEY DISEASE, UNSPECIFIED 08/09/2013 ARMIN DO LITA S Ot 702.0 ACTINIC [facility]OSIS [facility] Ot 715.90 OSTEOARTHROS NOS-UNSPEC 08/09/2013 ARMIN DO LITA S Ot 737.10 KYPHOSIS NOS 08/09/2013 ARMIN ALIZE JOHNSONLITA S Ot 782.7 SPONTANEOUS ECCHYMOSES 08/09/2013 ARMIN JERMAIN JOHNSONLINE S Ot 799.02 HYPOXEMIA 08/09/2013 LITA BARAKAT DO S Ot V04.81 ND FOR PROPHYLACTIC VACCIN AND INOCULATI 09/03/2014 [facility] S Ot 786.09 09/03/2014 [facility] S Ot 786.50 09/03/2014 ARMIN DO LITA S Ot V17.3 09/04/2014 ARMIN DO LITA S Ot 250.00 09/04/2014 ARMIN DO LITA S Ot 272.0 09/04/2014 [facility] S Ot 389.9 09/04/2014 [facility] DO LITA S Ot 401.9 09/04/2014 [facility] DO LITA S Ot 486 09/04/2014 [facility] DO LITA S Ot 493.22 09/04/2014 [facility] S Ot 530.81 09/04/2014 ARMIN DO LITA S Ot 696.1 09/04/2014 ARMIN DO LITA S Ot 716.90 09/04/2014 ARMIN DO LITA S Ot 780.57 09/04/2014 ARMIN DO LITA S Ot V10.83 09/04/2014 ARMIN ALIZE JOHNSONLITA S Ot V12.79 09/04/2014 ARMIN ALIZE JOHNSONLITA S Ot V15.82 09/04/2014 LITA BARAKAT DO S Ot 038.9 SEPTICEMIA NOS 09/04/2014 JERMAIN BARAKAT DOLINE S Ot 250.00 DIAB HOLLIE WO COMPL, TYPE II OR UNSPEC TY 09/04/2014 ARMIN JERMAIN JOHNSONLINE S Ot 272.0 PURE HYPERCHOLESTEROLEM 09/04/2014 ARMIN DO LITA S Ot 389.9 HEARING LOSS NOS 09/04/2014 ARMIN DO LITA S Ot 401.9 HYPERTENSION NOS 09/04/2014 ARMIN JERMAIN JOHNSONLINE S Ot 481 PNEUMOCOCCAL PNEUMONIA [STREPTOCOCCUS PN 09/04/2014 JERMAIN BARAKAT DOLINE S Ot 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, W (ACUTE) EX 09/04/2014 JERMAIN BARAKAT DOLINE S Ot 530.81 ESOPHAGEAL REFLUX 09/04/2014 JERMAIN BARAKAT DOLINE S Ot 696.1 OTHER PSORIASIS 09/04/2014 ARMIN JERMAIN JOHNSONLINE S Ot 716.90 ARTHROPATHY NOS-UNSPEC 09/04/2014 JERMAIN BARAKAT DOLINE S Ot 780.57 UNSPECIFIED SLEEP APNEA 09/04/2014 LITA BARAKAT DO S Ot 799.02 HYPOXEMIA 09/04/2014 JERMAIN BARAKAT DOLINE S Ot 995.91 SEPSIS 09/04/2014 LITA BARAKAT DO S Ot V10.83 HX-SKIN MALIGNANCY NEC 09/04/2014 ARMIN LITA JOHNSON S Ot V12.79 PERSONAL HISTORY OTH SPEC DIGESTIVE SYST 09/04/2014 ALIZE BARAKAT DOQUELINE S Ot V15.82 HISTORY OF TOBACCO USE 09/11/2014 ARMIN JERMAIN JOHNSONLINE S Ot 250.02 09/11/2014 LITA BARAKAT DO S Ot 272.0 09/11/2014 ALIZE BARAKAT DOQUELINE S Ot 300.00 09/11/2014 ALIZE BARAKAT DOQUELINE S Ot 311 09/11/2014 JERMAIN BARAKAT DOLINE S Ot 389.9 09/11/2014 ORENDER DO, LITA S Ot 401.9 09/11/2014 [facility] LITA S Ot 481 09/11/2014 [facility] LITA S Ot 491.21 09/11/2014 [facility] S Ot 530.81 09/11/2014 ARMIN LITA S Ot 696.1 09/11/2014 [facility] S Ot 716.90 09/11/2014 [facility] LITA S Ot 780.57 09/11/2014 [facility] LITA S Ot 785.2 09/11/2014 [facility] LITA S Ot 799.02 09/11/2014 [facility] S Ot E932.0 09/11/2014 [facility] LITA S Ot V12.79 09/11/2014 [facility] LITA S Ot V15.81 09/11/2014 [facility] LITA S Ot V15.82 09/11/2014 [facility] LITA S Ot V46.2 09/12/2014 [facility] S Ot 038.2 PNEUMOCOCCAL SEPTICEMIA 09/12/2014 GASPER JOHNSON LITA S Ot 250.02 DIAB HOLLIE WO COMPL, TYPE II OR UNSPEC TY 09/12/2014 ARMIN DO LITA S Ot 272.0 PURE HYPERCHOLESTEROLEM 09/12/2014 [facility] S Ot 272.4 HYPERLIPIDEMIA NEC/NOS 09/12/2014 GASPER JOHNSON LITA S Ot 300.00 ANXIETY STATE NOS 09/12/2014 GASPER JOHNSON LITA S Ot 311 DEPRESSIVE DISORDER NEC 09/12/2014 ARMIN DO LITA S Ot 389.9 HEARING LOSS NOS 09/12/2014 GASPER JOHNSON LITA S Ot 401.9 HYPERTENSION NOS 09/12/2014 ARMIN ALIZE JOHNSONLITA S Ot 414.01 CORONARY ATHEROSCLEROSIS OF [place] CORON 09/12/2014 ALIZE BARAKAT DOQUELINE S Ot 481 PNEUMOCOCCAL PNEUMONIA [STREPTOCOCCUS PN 09/12/2014 [facility] S Ot 491.21 OBSTR CHRONIC BRONCHITIS, W (ACUTE) EXAC 09/12/2014 LITA BARAKAT DO S Ot 518.81 ACUTE RESPIRATORY FAILURE 09/12/2014 GASPER JOHNSON LITA S Ot 530.81 ESOPHAGEAL REFLUX 09/12/2014 ARMINBEV JOHNSON LITA S Ot 696.1 OTHER PSORIASIS 09/12/2014 LITA BARAKAT DO S Ot 716.90 ARTHROPATHY NOS-UNSPEC 09/12/2014 GASPER LITA S Ot 780.57 UNSPECIFIED SLEEP APNEA 09/12/2014 GASPER JOHNSON LITA S Ot 785.2 CARDIAC MURMURS NEC 09/12/2014 JASMINJOSEFBEV JOHNSON LITA S Ot 799.02 09/12/2014 GASPER LITA S Ot 995.92 SEVERE SEPSIS 09/12/2014 GASPER LITA S Ot E932.0 ADV EFF CORTICOSTEROIDS 09/12/2014 GASPER LITA S Ot V12.79 PERSONAL HISTORY OTH SPEC DIGESTIVE SYST 09/12/2014 GASPER LITA S Ot V15.81 HX OF PAST NONCOMPLIANCE 09/12/2014 GASPER LITA S Ot V15.82 HISTORY OF TOBACCO USE 09/12/2014 GASPER JOHNSON LITA S Ot V46.2 SUPPLEMENTAL OXYGEN 10/20/2014 Ot 959.19 10/20/2014 Ot E000.8 10/20/2014 Ot E030 10/20/2014 Ot E849.0 10/20/2014 Ot E928.9 10/20/2014 Ot 786.05 10/20/2014 LITA BARAKAT DO S Ot 486 10/20/2014 JERMAIN BARAKAT DOLINE S Ot 496 10/20/2014 LITA BARAKAT DO S Ot 786.09 10/20/2014 LITA BARAKAT DO S Ot 786.50 10/20/2014 LITA BARAKAT DO S Ot V17.3 10/23/2014 LITA BARAKAT DO S Ot 250.02 DIAB HOLLIE WO COMPL, TYPE II OR UNSPEC TY 10/23/2014 LITA BARAKAT DO S Ot 401.9 HYPERTENSION NOS 10/23/2014 LITA BARAKAT DO S Ot 491.21 OBSTR CHRONIC BRONCHITIS, W (ACUTE) EXAC 10/23/2014 JASMINNDER DO, LITA S Ot V12.61 PERSONAL HISTORY, PNEUMONIA (RECURRENT) 10/23/2014 JASMINNDER DO, LITA S Ot V15.82 HISTORY OF TOBACCO USE 11/04/2014 JASMINNDER DO, LITA S Ot 496 11/04/2014 ORENDER DO, LITA S Ot V57.89 11/04/2014 ORENDER DO, LITA S Ot 496 12/27/2014 TATA HERMOSILLO [employer] DELIVERY DRIVER Ot 486 PNEUMONIA, ORGANISM NOS 12/27/2014 TATA HERMOS[employer] DELIVERY DRIVER Ot 786.05 SHORTNESS OF BREATH 02/01/2015 ORENDER DO, LITA S Ot 496 CHR AIRWAY OBSTRUCT NEC 02/01/2015 ORENDER DO, LITA S Ot V57.89 REHABILITATION PROC NEC 02/01/2015 ORENDER DO, LITA S Ot 496 02/01/2015 ORENDER DO, LITA S Ot V57.89 02/01/2015 ORENDER DO, LITA S Ot 496 02/04/2015 ORENDER DO, LITA S Ot 496 02/04/2015 ORENDER DO, LITA S Ot V57.89 02/04/2015 ORENDER DO, LITA S Ot 496 02/04/2015 ORENDER DO, LITA S Ot V57.89 02/04/2015 ORENDER DO, LITA S Ot 496 02/04/2015 ORENDER DO, LITA S Ot V57.89 02/05/2015 ORENDER DO, LITA S Ot 496 02/05/2015 ORENDER DO, LITA S Ot V57.89 03/08/2015 RAKEL THORPE DO Ot 278. 00 03/08/2015 RAKEL THORPE DO Ot 496 03/08/2015 RAKEL THORPE DO Ot 786. 09 05/05/2015 ORENDER DO, LITA S Ot 496 CHR AIRWAY OBSTRUCT NEC 05/05/2015 ORENDER DO, LITA S Ot V57.89 REHABILITATION PROC NEC 05/11/2015 JASMINNDER DO, LITA S Ot 496 05/11/2015 ORENDER DO, LITA S Ot V57.89 05/12/2015 ORENDER DO, LITA S Ot 496 05/12/2015 ORENDER DO, LITA S Ot V57.89 05/18/2015 ORENDER DO, LITA S Ot 496 05/18/2015 ORENDER DO, LITA S Ot V57.89 05/19/2015 ORENDER DO, LITA S Ot 496 05/19/2015 ORENDER DO, LITA S Ot V57.89 06/23/2015 ORENDER DO, LITA S Ot 496 CHR AIRWAY OBSTRUCT NEC 06/23/2015 JASMINNDER DO, LITA S Ot V57.89 REHABILITATION PROC NEC 12/22/2015 JASMINNDER DOJERMAINLITA S Ot K11.6 12/22/2015 JASMINNDER DOJERMAINLITA S Ot R22.1 12/31/2015 [facility] S Ot K11.6 12/31/2015 JASMINNDER DOJERMAINLITA S Ot R22.1 02/15/2016 JASMINNDER DOJERMAINLITA S Ot M79.671 PAIN IN RIGHT FOOT 02/18/2016 JASMINNDER DO, LITA S Ot M79.671 PAIN IN RIGHT FOOT 02/20/2016 ORENDER DO, LITA S Ot M79.671 PAIN IN RIGHT FOOT 03/03/2016 JASMINNDER DO, LITA S Ot M79.671 PAIN IN RIGHT FOOT 06/02/2016 JASMINJOSEFER DOJERMAINLITA S Ot D64.9 ANEMIA, UNSPECIFIED 06/02/2016 JASMINNDER DOJERMAINLITA S Ot E11.9 TYPE 2 DIABETES MELLITUS WITHOUT COMPLIC 06/02/2016 JASMINNDER DOJERMAINLITA S Ot E66.9 OBESITY, UNSPECIFIED 06/02/2016 JASMINNDER DO LITA S Ot E78.5 HYPERLIPIDEMIA, UNSPECIFIED 06/02/2016 JASMINNDER DOALIZELITA S Ot I10 ESSENTIAL (PRIMARY) HYPERTENSION 06/02/2016 JASMINNDER JERMAIN JOHNSONLINE S Ot I21.4 NON-ST ELEVATION (NSTEMI) MYOCARDIAL INF 06/02/2016 JERMAIN BARAKAT DOLINE S Ot I25.10 ATHSCL HEART DISEASE OF [place] CORONARY 06/02/2016 GASPER JOHNSON LITA S Ot J44.9 CHRONIC OBSTRUCTIVE PULMONARY DISEASE, U 06/02/2016 GASPER DO LITA S Ot Z68.30 BODY MASS INDEX (BMI) 30.0-30.9, ADULT 06/02/2016 JASMINNDBEV JOHNSON LITA S Ot Z79.4 FDC (CURRENT) USE OF INSULIN 06/02/2016 ALIZE BARAKTA DOQUELINE S Ot Z87.891 PERSONAL HISTORY OF NICOTINE DEPENDENCE 06/02/2016 ARMINBEV ALIZE JOHNSONLITA S Ot Z91.19 PATIENT'S NONCOMPLIANCE W [facility] 06/20/2016 JARAD COPPOLA [employer] DELIVERY DRIVER Ot R06.02 SHORTNESS OF BREATH 06/20/2016 JARAD [employer] DELIVERY DRIVER Ot R07.9 CHEST PAIN, UNSPECIFIED 06/20/2016 JARAD COP[employer] DELIVERY DRIVER Ot R53.83 OTHER FATIGUE 06/23/2016 ARMINBEV JERMAIN JOHNSONLINE S Ot E11.9 TYPE 2 DIABETES MELLITUS WITHOUT COMPLIC 06/23/2016 LAIZE BARAKAT DOQUELINE S Ot E78.5 HYPERLIPIDEMIA, UNSPECIFIED 06/23/2016 ALIZE BARAKAT DOQUELINE S Ot I10 ESSENTIAL (PRIMARY) HYPERTENSION 06/23/2016 ARMINBEV DO LITA S Ot I25.10 ATHSCL HEART DISEASE OF [place] CORONARY 06/23/2016 JASMINIRINA DO LITA S Ot J44.9 CHRONIC OBSTRUCTIVE PULMONARY DISEASE, U 06/23/2016 JASMINIRINA ALIZE JOHNSONLITA S Ot R07.9 CHEST PAIN, UNSPECIFIED 06/23/2016 ARMINBEV ALIZE JOHNSONLITA S Ot Z79.4 RESOLUTION EXPERT (CURRENT) USE OF INSULIN 06/23/2016 ARMINBEV ALIZE JOHNSONLTIA S Ot Z87.891 PERSONAL HISTORY OF NICOTINE DEPENDENCE 06/23/2016 ALIZE BARAKAT DOQUELINE S Ot 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 ANGIOPLASTY IMPLANT 06/28/2016 ALIZE BARAKAT DOQUELINE S Ot 486 PNEUMONIA, ORGANISM NOS 06/28/2016 JASMINNDER ALIZE JOHNSONLITA S Ot 496 CHR AIRWAY OBSTRUCT NEC 06/28/2016 ALIZE BARAKAT DOQUELINE S Ot 786.09 RESPIRATORY ABNORM NEC 06/28/2016 LITA BARAKAT DO Ot 786.50 CHEST PAIN NOS 06/28/2016 LITA BARAKAT DO Ot V17.3 FAM HX-ISCHEM HEART DIS 06/28/2016 LITA BARAKAT DO Ot 496 CHR AIRWAY OBSTRUCT NEC 06/28/2016 RAKEL THORPE DO Ot 278. 00 OBESITY, NOS 06/28/2016 ILA JOHNSON RAKEL Ramirez Ot 496 CHR AIRWAY OBSTRUCT NEC 06/28/2016 RAKEL THORPE DO Ot 786. 09 RESPIRATORY ABNORM NEC 06/28/2016 LITA BARAKAT DO Ot 496 06/28/2016 LITA BARAKAT DO Ot V57.89 06/28/2016 LITA BARAKAT DO S Ot K11.6 MUCOCELE OF [place]IV[place] 06/28/2016 LITA BARAKAT DO Ot R22.1 LOCALIZED SWELLING, MASS AND LUMP, NECK 06/28/2016 LITA BARAKAT DO Ot M79.671 PAIN IN RIGHT FOOT 06/28/2016 JARAD COPPOLA [employer] DELIVERY DRIVER Ot R06.02 SHORTNESS OF BREATH 06/28/2016 JARAD COPPOLA [employer] DELIVERY DRIVER Ot R07.9 CHEST PAIN, UNSPECIFIED 06/28/2016 JARAD COPPOLA [employer] DELIVERY DRIVER Ot R53.83 OTHER FATIGUE 07/07/2016 RANDI SHAFFER FACC, TARI FACP CCDS Ot I25.10 ATHSCL HEART DISEASE OF [place] CORONARY 07/07/2016 RANDI SHAFFER FACC, TARI FACP CCDS Ot R06.02 SHORTNESS OF BREATH 07/12/2016 RANDI SHAFFER FACC, ALI FACP CCDS Ot I25.10 ATHSCL HEART DISEASE OF [place] CORONARY 07/12/2016 RANDI SHAFFER FACC, ALI FACP CCDS Ot R06.02 SHORTNESS OF BREATH 07/19/2016 RANDI SHAFFER FACC, TARI FACP CCDS Ot I25.10 ATHSCL HEART DISEASE OF [place] CORONARY 07/19/2016 RANDI SHAFFER FACC, ALI FACP CCDS Ot R06.02 SHORTNESS OF BREATH 07/27/2016 JOYCE KAYE APRN Ot R91.1 SOLITARY PULMONARY NODULE 07/28/2016 MIKKI, JOYCE E [employer] DELIVERY DRIVER Ot R91.1 SOLITARY PULMONARY NODULE 08/01/2016 JOYCE KAYE [employer] DELIVERY DRIVER Ot R91.1 SOLITARY PULMONARY NODULE 08/09/2016 JOYCE KAYE [employer] DELIVERY DRIVER Ot R91.1 SOLITARY PULMONARY NODULE 09/04/2016 RAKEL THORPE DO M Ot J43. 8 OTHER EMPHYSEMA 09/04/2016 ILA RAKEL M Ot R06. 00 DYSPNEA, UNSPECIFIED 09/04/2016 RAKEL THORPE DO M Ot R91. 1 SOLITARY PULMONARY NODULE 09/04/2016 MIKHAIL THORPE DOSON M Ot Z87.891 PERSONAL HISTORY OF NICOTINE DEPENDENCE 09/07/2016 RAKEL THORPE DO M Ot J43. 8 OTHER EMPHYSEMA 09/07/2016 RAKEL THORPE DO M Ot R06. 00 DYSPNEA, UNSPECIFIED 09/07/2016 ILA MIKHAILRAKEL M Ot R91. 1 SOLITARY PULMONARY NODULE 09/07/2016 RAKEL THORPE DO M Ot Z87.891 PERSONAL HISTORY OF NICOTINE DEPENDENCE 09/21/2016 RAKEL THORPE DO M Ot J43. 8 OTHER EMPHYSEMA 09/21/2016 MIKHAIL THORPE DOSON M Ot R06. 00 DYSPNEA, UNSPECIFIED 09/21/2016 MIKHAIL THORPE DOSON M Ot R91. 1 SOLITARY PULMONARY NODULE 09/21/2016 RAKEL THORPE DO M Ot Z87.891 PERSONAL HISTORY OF NICOTINE DEPENDENCE 12/10/2016 CHANO JOHNSON CIERA K Ot E11.9 TYPE 2 DIABETES MELLITUS WITHOUT COMPLIC 12/10/2016 TANMAY MADDEN DOA K Ot I10 ESSENTIAL (PRIMARY) HYPERTENSION 12/10/2016 TANMAY MADDEN DOA K Ot I25.10 ATHSCL HEART DISEASE OF [place] CORONARY 12/10/2016 TANMAY MADDEN DOA K Ot J18.9 PNEUMONIA, UNSPECIFIED ORGANISM 12/10/2016 TANMAY MADDEN DOA K Ot J44.1 CHRONIC OBSTRUCTIVE PULMONARY DISEASE W 12/10/2016 TANMAY MADDEN DOA K Ot R06.02 SHORTNESS OF BREATH 12/10/2016 CHANO JOHNSON CIERA K Ot Z79.4 RESOLUTION EXPERT (CURRENT) USE OF INSULIN 12/10/2016 TANMAY MADDEN DOA K Ot Z79.84 FDC (CURRENT) USE OF ORAL HYPOGLYC 12/10/2016 CHANO JOHNSON CIERA K Ot Z79.899 OTHER RESOLUTION EXPERT (CURRENT) DRUG THERAPY 12/10/2016 CIERA MADDEN DO Ot Z87.891 PERSONAL HISTORY OF NICOTINE DEPENDENCE 12/10/2016 CIERA MADDEN DO Ot 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 ANGIOPLASTY IMPLANT 12/12/2016 CIERA MADDEN DO Ot E11.9 TYPE 2 DIABETES MELLITUS WITHOUT COMPLIC 12/12/2016 CIERA MADDEN DO K Ot I10 ESSENTIAL (PRIMARY) HYPERTENSION 12/12/2016 CIERA MADDEN DO K Ot I25.10 ATHSCL HEART DISEASE OF [place] CORONARY 12/12/2016 CIERA MADDEN DO Ot J18.9 PNEUMONIA, UNSPECIFIED ORGANISM 12/12/2016 CIERA MADDEN DO Ot J44.1 CHRONIC OBSTRUCTIVE PULMONARY DISEASE W 12/12/2016 CIERA MADDEN DO Ot R06.02 SHORTNESS OF BREATH 12/12/2016 CIERA MADDEN DO Ot Z79.4 FDC (CURRENT) USE OF INSULIN 12/12/2016 CIERA MADDEN DO K Ot Z79.84 RESOLUTION EXPERT (CURRENT) USE OF ORAL HYPOGLYC 12/12/2016 CIERA MADDEN DO K Ot Z79.899 OTHER RESOLUTION EXPERT (CURRENT) DRUG THERAPY 12/12/2016 CIERA MADDEN DO Ot Z87.891 PERSONAL HISTORY OF NICOTINE DEPENDENCE 12/12/2016 CIERA MADDEN DO Ot 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 ANGIOPLASTY IMPLANT 12/22/2016 LITA BARAKAT DO S Ot D64.9 ANEMIA, UNSPECIFIED 01/05/2017 LITA BARAKAT DO S Ot D64.9 ANEMIA, UNSPECIFIED 01/31/2017 CASSIA THOMPSON Ot S49.92XA UNSP INJURY OF LEFT SHOULDER AND UPPER A 01/31/2017 CASSIA THOMPSON Ot W19.XXXA UNSPECIFIED FALL, INITIAL ENCOUNTER 01/31/2017 CASSIA THOMPSON Ot Y99.8 OTHER EXTERNAL CAUSE STATUS 02/12/2017 CASSIA THOMPSON Ot S49.92XA UNSP INJURY OF LEFT SHOULDER AND UPPER A 02/12/2017 CASSIA THOMPSON Ot W19.XXXA UNSPECIFIED FALL, INITIAL ENCOUNTER 02/12/2017 [facility] Ot Y99.8 OTHER EXTERNAL CAUSE STATUS 06/16/2017 JASMINNDJERMAIN PABLO DOLINE S Ot D64.9 ANEMIA, UNSPECIFIED 06/16/2017 JASMINNDER ALIZE JOHNSONLITA S Ot E11.65 TYPE 2 DIABETES MELLITUS WITH HYPERGLYCE 06/16/2017 JASMINNDJERMAIN PABLO DOLINE S Ot E78.5 HYPERLIPIDEMIA, UNSPECIFIED 06/16/2017 JASMINNDALIZE PABLO DOQUELINE S Ot G47.33 OBSTRUCTIVE SLEEP APNEA (ADULT) (PEDIATR 06/16/2017 JASMINNDER DOALIZELITA S Ot I10 ESSENTIAL (PRIMARY) HYPERTENSION 06/16/2017 JERMAIN BARAKAT DOLINE S Ot I25.10 ATHSCL HEART DISEASE OF [place] CORONARY 06/16/2017 JERMAIN BARAKAT DOLINE S Ot I25.2 OLD MYOCARDIAL INFARCTION 06/16/2017 ALIZE BARAKAT DOQUELINE S Ot I65.23 OCCLUSION AND STENOSIS OF BILATERAL [place]ZZ[place] 06/16/2017 JERMAIN BARAKAT DOLINE S Ot I95.9 HYPOTENSION, UNSPECIFIED 06/16/2017 JERMAIN BARAKAT DOLINE S Ot J44.1 CHRONIC OBSTRUCTIVE PULMONARY DISEASE W 06/16/2017 JERMAIN BARAKAT DOLINE S Ot J96.01 ACUTE RESPIRATORY FAILURE WITH HYPOXIA 06/16/2017 JERMAIN BARAKAT DOLINE S Ot N17.9 ACUTE KIDNEY FAILURE, UNSPECIFIED 06/16/2017 JERMAIN BARAKAT DOLINE S Ot Z79.4 FDC (CURRENT) USE OF INSULIN 06/16/2017 JERMAIN BARAKAT DOLINE S Ot Z85.828 PERSONAL HISTORY OF OTHER MALIGNANT NEOP 06/16/2017 ALIZE BARAKAT DOQUELINE S Ot Z87.891 PERSONAL HISTORY OF NICOTINE DEPENDENCE 06/16/2017 ALIZE BARAKAT DOQUELINE S Ot 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 ANGIOPLASTY IMPLANT 06/20/2017 LITA BARAKAT DO S Ot D64.9 ANEMIA, UNSPECIFIED 06/20/2017 JASMINNDALIZE PABLO DOQUELINE S Ot E11.9 TYPE 2 DIABETES MELLITUS WITHOUT COMPLIC 06/20/2017 JERMAIN BARAKAT DOLINE S Ot E78.00 PURE HYPERCHOLESTEROLEMIA, UNSPECIFIED 06/20/2017 JASMINNDLITA PABLO DO Ot E87.2 ACIDOSIS 06/20/2017 LITA BARAKAT DO Ot G47.33 OBSTRUCTIVE SLEEP APNEA (ADULT) (PEDIATR 06/20/2017 LITA BARAKAT DO Ot H91.90 UNSPECIFIED HEARING LOSS, UNSPECIFIED EA 06/20/2017 LITA BARAKAT DO Ot I10 ESSENTIAL (PRIMARY) HYPERTENSION 06/20/2017 LITA BARAKAT DO Ot I25.10 ATHSCL HEART DISEASE OF [place] CORONARY 06/20/2017 LITA BARAKAT DO Ot J18.9 PNEUMONIA, UNSPECIFIED ORGANISM 06/20/2017 LITA BARAKAT DO Ot J44.0 CHRONIC OBSTRUCTIVE PULMON DISEASE W ACU 06/20/2017 LITA BARAKAT DO Ot J44.1 CHRONIC OBSTRUCTIVE PULMONARY DISEASE W 06/20/2017 LITA BARAKAT DO Ot J81.0 ACUTE PULMONARY EDEMA 06/20/2017 LITA BARAKAT DO Ot 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 [place] 06/20/2017 LITA BARAKAT DO Ot Z66 DO NOT RESUSCITATE 06/20/2017 LITA BARAKAT DO Ot Z79.4 FDC (CURRENT) USE OF INSULIN 06/20/2017 LITA BARAKAT DO Ot Z85.828 PERSONAL HISTORY OF OTHER MALIGNANT NEOP 06/20/2017 LITA BARAKAT DO Ot Z86.79 PERSONAL HISTORY OF OTHER DISEASES OF TH 06/20/2017 LITA BARAKAT DO Ot Z87.891 PERSONAL HISTORY OF NICOTINE DEPENDENCE 06/20/2017 LITA BARAKAT DO Ot 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 ANGIOPLASTY IMPLANT 06/21/2017 LITA BARAKAT DO Ot D64.9 ANEMIA, UNSPECIFIED 06/21/2017 LITA BARAKAT DO Ot E11.9 TYPE 2 DIABETES MELLITUS WITHOUT COMPLIC 06/21/2017 LITA BARAKAT DO Ot E78.00 PURE HYPERCHOLESTEROLEMIA, UNSPECIFIED 06/21/2017 LITA BARAKAT DO Ot E87.2 ACIDOSIS 06/21/2017 LITA BARAKAT DO Ot G47.33 OBSTRUCTIVE SLEEP APNEA (ADULT) (PEDIATR 06/21/2017 LITA BARAKAT DO Ot H91.90 UNSPECIFIED HEARING LOSS, UNSPECIFIED EA 06/21/2017 LITA BARAKAT DO Ot I10 ESSENTIAL (PRIMARY) HYPERTENSION 06/21/2017 LITA BARAKAT DO Ot I25.10 ATHSCL HEART DISEASE OF [place] CORONARY 06/21/2017 LITA BARAKAT DO Ot J18.9 PNEUMONIA, UNSPECIFIED ORGANISM 06/21/2017 LITA BARAKAT DO Ot J44.0 CHRONIC OBSTRUCTIVE PULMON DISEASE W ACU 06/21/2017 LITA BARAKAT DO Ot J44.1 CHRONIC OBSTRUCTIVE PULMONARY DISEASE W 06/21/2017 LITA BARAKAT DO Ot J81.0 ACUTE PULMONARY EDEMA 06/21/2017 LITA BARAKAT DO Ot 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 [place] 06/21/2017 LITA BARAKAT DO Ot Z66 DO NOT RESUSCITATE 06/21/2017 LITA BARAKAT DO Ot Z79.4 RESOLUTION EXPERT (CURRENT) USE OF INSULIN 06/21/2017 LITA BARAKAT DO S Ot Z85.828 PERSONAL HISTORY OF OTHER MALIGNANT NEOP 06/21/2017 LITA BARAKAT DO S Ot Z86.79 PERSONAL HISTORY OF OTHER DISEASES OF [place] 06/21/2017 LITA BARAKAT DO Ot Z87.891 PERSONAL HISTORY OF NICOTINE DEPENDENCE 06/21/2017 LITA BARAKAT DO Ot 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 ANGIOPLASTY IMPLANT 06/21/2017 LITA BARAKAT DO Ot D64.9 ANEMIA, UNSPECIFIED 06/21/2017 LITA BARAKAT DO S Ot E11.9 TYPE 2 DIABETES MELLITUS WITHOUT COMPLIC 06/21/2017 LITA BARAKAT DO S Ot E78.00 PURE HYPERCHOLESTEROLEMIA, UNSPECIFIED 06/21/2017 LITA BARAKAT DO S Ot E87.2 ACIDOSIS 06/21/2017 LITA BARAKAT DO Ot G47.33 OBSTRUCTIVE SLEEP APNEA (ADULT) (PEDIATR 06/21/2017 LITA BARAKAT DO S Ot H91.90 UNSPECIFIED HEARING LOSS, UNSPECIFIED EA 06/21/2017 LITA BARAKAT DO Ot I10 ESSENTIAL (PRIMARY) HYPERTENSION 06/21/2017 ILTA BARAKAT DO Ot I25.10 ATHSCL HEART DISEASE OF [place] CORONARY 06/21/2017 LITA BARAKAT DO Ot J18.9 PNEUMONIA, UNSPECIFIED ORGANISM 06/21/2017 LITA BARAKAT DO Ot J44.0 CHRONIC OBSTRUCTIVE PULMON DISEASE W ACU 06/21/2017 LITA BARAKAT DO Ot J44.1 CHRONIC OBSTRUCTIVE PULMONARY DISEASE W 06/21/2017 LITA BARAKAT DO Ot J81.0 ACUTE PULMONARY EDEMA 06/21/2017 LITA BARAKAT DO Ot 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 [place] 06/21/2017 LITA BARAKAT DO Ot Z66 DO NOT RESUSCITATE 06/21/2017 LITA BARAKAT DO Ot Z79.4 FDC (CURRENT) USE OF INSULIN 06/21/2017 LITA BARAKAT DO Ot Z85.828 PERSONAL HISTORY OF OTHER MALIGNANT NEOP 06/21/2017 LITA BARAKAT DO Ot Z86.79 PERSONAL HISTORY OF OTHER DISEASES OF [place] 06/21/2017 LITA BARAKAT DO Ot Z87.891 PERSONAL HISTORY OF NICOTINE DEPENDENCE 06/21/2017 LITA BARAKAT DO Ot 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 ANGIOPLASTY IMPLANT 07/03/2017 LITA BARAKAT DO Ot J84.9 INTERSTITIAL PULMONARY DISEASE, UNSPECIF 07/13/2017 LITA BARAKAT DO Ot J84.9 INTERSTITIAL PULMONARY DISEASE, UNSPECIF 08/02/2017 LITA BARKAAT DO Ot J44.9 CHRONIC OBSTRUCTIVE PULMONARY DISEASE, U 08/15/2017 LITA BARAKAT DO Ot J44.9 CHRONIC OBSTRUCTIVE PULMONARY DISEASE, U 10/15/2017 MAX SHAFFER, KOBY Man Ot E11. 9 TYPE 2 DIABETES MELLITUS WITHOUT COMPLIC 10/15/2017 MAX SHAFFER, KOBY Man Ot E78. 00 PURE HYPERCHOLESTEROLEMIA, UNSPECIFIED 10/15/2017 MAX SHAFFER, KOBY Man Ot I10 ESSENTIAL (PRIMARY) HYPERTENSION 10/15/2017 KOBY SANTANA MD Ot I25. 10 ATHSCL HEART DISEASE OF [place] CORONARY 10/15/2017 MAX SHAFFER, KOBY Man Ot I25. 2 OLD MYOCARDIAL INFARCTION 10/15/2017 KOBY SANTANA MD Ot J43. 9 EMPHYSEMA, UNSPECIFIED 10/15/2017 MAX SHAFFER, KOBY Man Ot S61.214A LACERATION W/O FB OF R RNG FNGR W/O JESSE 10/15/2017 KOBY SANTANA MD Ot S66.324A LACERAT EXTN MUSC/FASC/TEND R RNG FNGR A 10/15/2017 KOBY SANTANA MD Ot W29.8XXA CNTCT WITH OTHER POWERED HAND TOOLS AND 10/15/2017 KOBY SANTANA MD Ot Z79. 4 RESOLUTION EXPERT (CURRENT) USE OF INSULIN 10/15/2017 KOBY SANTANA MD Ot Z79. 82 RESOLUTION EXPERT (CURRENT) USE OF ASPIRIN 10/15/2017 KOBY SANTANA MD Ot Z85.828 PERSONAL HISTORY OF OTHER MALIGNANT NEOP 10/15/2017 KOBY SANTANA MD Ot Z87. 81 PERSONAL HISTORY OF (HEALED) TRAUMATIC F 10/15/2017 KOBY SANTANA MD Ot Z87.891 PERSONAL HISTORY OF NICOTINE DEPENDENCE 10/15/2017 KOBY SANTANA MD Ot Z95. 5 PRESENCE OF CORONARY ANGIOPLASTY IMPLANT 10/17/2017 KOBY SANTANA MD Ot E11. 9 TYPE 2 DIABETES MELLITUS WITHOUT COMPLIC 10/17/2017 KOBY SANTANA MD Ot E78. 00 PURE HYPERCHOLESTEROLEMIA, UNSPECIFIED 10/17/2017 MAX SHAFFER, KOBY Man Ot I10 ESSENTIAL (PRIMARY) HYPERTENSION 10/17/2017 MAX SHAFFER, KOBY Man Ot I25. 10 ATHSCL HEART DISEASE OF [place] CORONARY 10/17/2017 MAX SHAFFER, KOBY Man Ot I25. 2 OLD MYOCARDIAL INFARCTION 10/17/2017 KOBY SANTANA MD Ot J43. 9 EMPHYSEMA, UNSPECIFIED 10/17/2017 KOBY SANTANA MD Ot S61.214A LACERATION W/O FB OF R RNG FNGR W/O JESSE 10/17/2017 KOBY SANTANA MD Ot S66.324A LACERAT EXTN MUSC/FASC/TEND R RNG FNGR A 10/17/2017 KOBY SANTANA MD Ot W29.8XXA CNTCT WITH OTHER POWERED HAND TOOLS AND 10/17/2017 KOBY SANTANA MD Ot Z79. 4 FDC (CURRENT) USE OF INSULIN 10/17/2017 KOBY SANTANA MD Ot Z79. 82 [facility] (CURRENT) USE OF ASPIRIN 10/17/2017 KOBY SANTANA MD Ot Z85.828 PERSONAL HISTORY OF OTHER MALIGNANT NEOP 10/17/2017 KOBY SANTANA MD Ot Z87. 81 PERSONAL HISTORY OF (HEALED) TRAUMATIC F 10/17/2017 KOBY SANTANA MD Ot Z87.891 PERSONAL HISTORY OF NICOTINE DEPENDENCE 10/17/2017 KOBY SANTANA MD Ot Z95. 5 PRESENCE OF CORONARY ANGIOPLASTY IMPLANT 12/18/2017 HARRIS ARGUETA APRN Ot M25.561 PAIN IN RIGHT KNEE 12/26/2017 TATA HERMOSILLO APRN Ot E11 .9 TYPE 2 DIABETES MELLITUS WITHOUT COMPLIC 12/26/2017 TATA HERMOSILLO APRN Ot E78.00 PURE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 INFARCTION 12/18/2018 ARMIN LITA JOHNSON Ot J44.1 CHRONIC OBSTRUCTIVE PULMONARY DISEASE W 12/18/2018 LITA BARAKAT DO S Ot 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 [place] 12/18/2018 ARMIN LITA JOHNSON S Ot K21.9 GASTRO-ESOPHAGEAL REFLUX DISEASE WITHOUT 12/18/2018 ARMIN LITA JOHNSON S Ot K30 FUNCTIONAL DYSPEPSIA 12/18/2018 ARMIN LITA JOHNSON S Ot L30.9 DERMATITIS, UNSPECIFIED 12/18/2018 [facility] LITA S Ot L57.0 ACTINIC KERATOSIS 12/18/2018 ARMINBEV DO LITA S Ot M19.91 PRIMARY OSTEOARTHRITIS, UNSPECIFIED SITE 12/18/2018 GASPER JOHNSON LITA S Ot Z79.4 FDC (CURRENT) USE OF INSULIN 12/18/2018 GASPER LITA S Ot Z85.828 PERSONAL HISTORY OF OTHER MALIGNANT NEOP 12/18/2018 GASPER JOHNSON LITA S Ot Z87.891 PERSONAL HISTORY OF NICOTINE DEPENDENCE 12/18/2018 ARMINBEV JOHNSON LITA S Ot 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 ANGIOPLASTY IMPLANT 12/18/2018 GASPER JOHNSON LITA S Ot 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 12/19/2018 ZANE SHAFFER, LELE Wayne Ot R06.02 SHORTNESS OF BREATH 12/22/2018 ARMIN LITA S Ot E11.65 TYPE 2 DIABETES MELLITUS WITH HYPERGLYCE 12/22/2018 GASPER JOHNSON LITA S Ot E78.2 MIXED HYPERLIPIDEMIA 12/22/2018 ARMIN DO LITA S Ot F41.9 ANXIETY DISORDER, UNSPECIFIED 12/22/2018 JERMAIN BARAKAT DOLINE S Ot G20 PARKINSON'S DISEASE 12/22/2018 ARMIN JERMAIN JOHNSONLINE S Ot G25.81 RESTLESS LEGS SYNDROME 12/22/2018 GASPER JOHNSON LITA S Ot G47.30 SLEEP APNEA, UNSPECIFIED 12/22/2018 JERMAIN BARAKAT DOLINE S Ot I10 ESSENTIAL (PRIMARY) HYPERTENSION 12/22/2018 ARMIN JERMAIN JOHNSONLINE S Ot I25.10 ATHSCL HEART DISEASE OF [place] CORONARY 12/22/2018 GASPER JOHNSON LITA S Ot I25.2 OLD MYOCARDIAL INFARCTION 12/22/2018 JERMAIN BARAKAT DOLINE S Ot J44.1 CHRONIC OBSTRUCTIVE PULMONARY DISEASE W 12/22/2018 JERMAIN BARAKAT DOLINE S Ot 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 [place] 12/22/2018 ALIZE BARAKAT DOQUELINE S Ot K21.9 GASTRO-ESOPHAGEAL REFLUX DISEASE WITHOUT 12/22/2018 JERMAIN BARAKAT DOLINE S Ot L30.9 DERMATITIS, UNSPECIFIED 12/22/2018 LITA BARAKAT DO Ot M19.91 PRIMARY OSTEOARTHRITIS, UNSPECIFIED SITE 12/22/2018 LITA BARAKAT DO Ot Z63.8 OTHER SPECIFIED PROBLEMS RELATED TO PRIM 12/22/2018 LITA BARAKAT DO S Ot Z66 DO NOT RESUSCITATE 12/22/2018 LITA BARAKAT DO Ot Z79.4 RESOLUTION EXPERT (CURRENT) USE OF INSULIN 12/22/2018 LITA BARAKAT DO S Ot Z85.828 PERSONAL HISTORY OF OTHER MALIGNANT NEOP 12/22/2018 LITA BARAKAT DO S Ot Z87.891 PERSONAL HISTORY OF NICOTINE DEPENDENCE 12/22/2018 LITA BARAKAT DO S Ot Z91.19 PATIENT'S NONCOMPLIANCE W [facility] 12/22/2018 LITA BARAKAT DO Ot 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 ANGIOPLASTY IMPLANT 12/23/2018 LITA BARAKAT DO S Ot E11.65 TYPE 2 DIABETES MELLITUS WITH HYPERGLYCE 12/23/2018 LITA BARAKAT DO S Ot E78.2 MIXED HYPERLIPIDEMIA 12/23/2018 LITA BARAKAT DO S Ot F41.9 ANXIETY DISORDER, UNSPECIFIED 12/23/2018 LITA BARAKAT DO S Ot G20 PARKINSON'S DISEASE 12/23/2018 JERMAIN BARAKAT DOLINE S Ot G25.81 RESTLESS LEGS SYNDROME 12/23/2018 LITA BARAKAT DO S Ot G47.30 SLEEP APNEA, UNSPECIFIED 12/23/2018 LITA BARAKAT DO S Ot I10 ESSENTIAL (PRIMARY) HYPERTENSION 12/23/2018 LITA BARAKAT DO S Ot I25.10 ATHSCL HEART DISEASE OF [place] CORONARY 12/23/2018 LITA BARAKAT DO S Ot I25.2 OLD MYOCARDIAL INFARCTION 12/23/2018 LITA BARAKAT DO S Ot J44.1 CHRONIC OBSTRUCTIVE PULMONARY DISEASE W 12/23/2018 LITA BARAKAT DO S Ot 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 [place] 12/23/2018 LITA BARAKAT DO S Ot K21.9 GASTRO-ESOPHAGEAL REFLUX DISEASE WITHOUT 12/23/2018 LITA BARAKAT DO S Ot L30.9 DERMATITIS, UNSPECIFIED 12/23/2018 JASMINNDLITA PABLO DO Ot M19.91 PRIMARY OSTEOARTHRITIS, UNSPECIFIED SITE 12/23/2018 LITA BARAKAT DO Ot Z63.8 OTHER SPECIFIED PROBLEMS RELATED TO PRIM 12/23/2018 JASMINNDJERMAIN PABLO DOLINE Donovan Ot Z66 DO NOT RESUSCITATE 12/23/2018 JERMIAN BARAKAT DOLINE Donovan Ot Z79.4 RESOLUTION EXPERT (CURRENT) USE OF INSULIN 12/23/2018 LITA BARAKAT DO Ot Z85.828 PERSONAL HISTORY OF OTHER MALIGNANT NEOP 12/23/2018 LITA BARAKAT DO Ot Z87.891 PERSONAL HISTORY OF NICOTINE DEPENDENCE 12/23/2018 GASPER JOHNSON LITA Man Ot Z91.19 PATIENT'S NONCOMPLIANCE W [facility] 12/23/2018 JERMAIN BARAKAT DOLINE Donovan Ot 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 ANGIOPLASTY IMPLANT 12/23/2018 TATA HERMOSILLO APRN Ot E11 .9 TYPE 2 DIABETES MELLITUS WITHOUT COMPLIC 12/23/2018 TATA HERMOSILLO APRN Ot E78.00 PURE HYPERCHOLESTEROLEMIA, UNSPECIFIED 12/23/2018 TATA HERMOSILLO APRN Ot F41 .9 ANXIETY DISORDER, UNSPECIFIED 12/23/2018 TATA HEROMSILLO APRN Ot G47.30 SLEEP APNEA, UNSPECIFIED 12/23/2018 TATA HERMOSILLO APRN Ot I10 ESSENTIAL (PRIMARY) HYPERTENSION 12/23/2018 TATA HERMOSILLO APRN Ot I25.10 ATHSCL HEART DISEASE OF [place] CORONARY 12/23/2018 TATA HERMOSILLO APRN Ot I25 .2 OLD MYOCARDIAL INFARCTION 12/23/2018 TATA HERMOSILLO APRN Ot J44 .1 CHRONIC OBSTRUCTIVE PULMONARY DISEASE W 12/23/2018 TATA HERMOSILLO APRN Ot K21 .9 GASTRO-ESOPHAGEAL REFLUX DISEASE WITHOUT 12/23/2018 TATA HERMOSILLO APRN Ot R06.02 SHORTNESS OF BREATH 12/23/2018 TATA HERMOSILLO APRN Ot Z79 .4 RESOLUTION EXPERT (CURRENT) USE OF INSULIN 12/23/2018 TATA HERMOSILLO APRN Ot Z79.52 FDC (CURRENT) USE OF SYSTEMIC STER 12/23/2018 TATA HERMOSILLO APRN Ot Z79.82 RESOLUTION EXPERT (CURRENT) USE OF ASPIRIN 12/23/2018 TATA HERMOSILLO APRN Ot Z82.49 FAMILY HX OF ISCHEM HEART DIS AND OTH DI 12/23/2018 TTAA HERMOSILLO APRN Ot Z85.828 PERSONAL HISTORY OF OTHER MALIGNANT NEOP 12/23/2018 TATA HERMOSILLO APRN Ot Z87.19 PERSONAL HISTORY OF OTHER DISEASES OF TH 12/23/2018 TATA HERMOSILLO APRN Ot Z87.891 PERSONAL HISTORY OF NICOTINE DEPENDENCE 12/23/2018 TATA HERMOSILLO APRN Ot Z88 .5 ALLERGY STATUS TO NARCOTIC AGENT STATUS 12/23/2018 TATA HERMOSILLO APRN Ot Z88 .6 ALLERGY STATUS TO ANALGESIC AGENT STATUS 12/23/2018 TATA HERMOSILLO APRN Ot Z95 .5 PRESENCE OF CORONARY ANGIOPLASTY IMPLANT 12/23/2018 TATA HERMOSILLO APRN Ot Z98.890 OTHER SPECIFIED POSTPROCEDURAL STATES 12/23/2018 TATA HERMOSILLO APRN Ot 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 12/24/2018 LITA BARAKAT DO S Ot E11.65 TYPE 2 DIABETES MELLITUS WITH HYPERGLYCE 12/24/2018 LITA BARAKAT DO S Ot E78.2 MIXED HYPERLIPIDEMIA 12/24/2018 JERMAIN BARAKAT DOLINE S Ot F41.9 ANXIETY DISORDER, UNSPECIFIED 12/24/2018 JERMAIN BARAKAT DOLINE S Ot G20 PARKINSON'S DISEASE 12/24/2018 JERMAIN BARAKAT DOLINE S Ot G25.81 RESTLESS LEGS SYNDROME 12/24/2018 LITA BARAKAT DO S Ot G47.30 SLEEP APNEA, UNSPECIFIED 12/24/2018 JERMAIN BARAKAT DOLINE S Ot I10 ESSENTIAL (PRIMARY) HYPERTENSION 12/24/2018 JERMAIN BARAKAT DOLINE S Ot I25.10 ATHSCL HEART DISEASE OF [place] CORONARY 12/24/2018 LITA BARAKAT DO S Ot I25.2 OLD MYOCARDIAL INFARCTION 12/24/2018 LITA BARAKAT DO S Ot J44.1 CHRONIC OBSTRUCTIVE PULMONARY DISEASE W 12/24/2018 JERMAIN BARAKAT DOLINE S Ot 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 [place] 12/24/2018 JERMAIN BARAKAT DOLINE S Ot K21.9 GASTRO-ESOPHAGEAL REFLUX DISEASE WITHOUT 12/24/2018 LITA BARAKAT DO Ot L30.9 DERMATITIS, UNSPECIFIED 12/24/2018 LITA BARAKAT DO Ot M19.91 PRIMARY OSTEOARTHRITIS, UNSPECIFIED SITE 12/24/2018 LITA BARAKAT DO Ot Z63.8 OTHER SPECIFIED PROBLEMS RELATED TO PRIM 12/24/2018 LITA BARAKAT DO Ot Z66 DO NOT RESUSCITATE 12/24/2018 LITA BARAKAT DO Ot Z79.4 RESOLUTION EXPERT (CURRENT) USE OF INSULIN 12/24/2018 LITA BARAKAT DO S Ot Z85.828 PERSONAL HISTORY OF OTHER MALIGNANT NEOP 12/24/2018 ARMIN LITA JOHNSON Ot Z87.891 PERSONAL HISTORY OF NICOTINE DEPENDENCE 12/24/2018 LITA BARAKAT DO S Ot Z91.19 PATIENT'S NONCOMPLIANCE W [facility] 12/24/2018 LITA BARAKAT DO Ot 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 ANGIOPLASTY IMPLANT 12/24/2018 LITA BARAKAT DO S Ot E11.65 TYPE 2 DIABETES MELLITUS WITH HYPERGLYCE 12/24/2018 LITA BARAKAT DO S Ot E78.2 MIXED HYPERLIPIDEMIA 12/24/2018 LITA BARAKAT DO S Ot F41.9 ANXIETY DISORDER, UNSPECIFIED 12/24/2018 LITA BARAKAT DO S Ot G20 PARKINSON'S DISEASE 12/24/2018 LITA BARAKAT DO S Ot G25.81 RESTLESS LEGS SYNDROME 12/24/2018 LITA BARAKAT DO S Ot G47.30 SLEEP APNEA, UNSPECIFIED 12/24/2018 LITA BARAKAT DO S Ot I10 ESSENTIAL (PRIMARY) HYPERTENSION 12/24/2018 LITA BARAKAT DO S Ot I25.10 ATHSCL HEART DISEASE OF [place] CORONARY 12/24/2018 LITA BARAKAT DO S Ot I25.2 OLD MYOCARDIAL INFARCTION 12/24/2018 LITA BARAKAT DO Ot J44.1 CHRONIC OBSTRUCTIVE PULMONARY DISEASE W 12/24/2018 LITA BARAKAT DO Ot 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 [place] 12/24/2018 LITA BARAKAT DO S Ot K21.9 GASTRO-ESOPHAGEAL REFLUX DISEASE WITHOUT 12/24/2018 JASMINNDLITA PABLO DO S Ot L30.9 DERMATITIS, UNSPECIFIED 12/24/2018 GASPER JOHNSON LITA S Ot M19.91 PRIMARY OSTEOARTHRITIS, UNSPECIFIED SITE 12/24/2018 GASPER JOHNSON LITA Man Ot Z63.8 OTHER SPECIFIED PROBLEMS RELATED TO PRIM 12/24/2018 JASMINNDBEV JOHNSON LITA S Ot Z66 DO NOT RESUSCITATE 12/24/2018 JASMINNDBEV JOHNSON LITA S Ot Z79.4 FDC (CURRENT) USE OF INSULIN 12/24/2018 GASPER JOHNSON LITA S Ot Z85.828 PERSONAL HISTORY OF OTHER MALIGNANT NEOP 12/24/2018 GASPER JOHNSON LITA S Ot Z87.891 PERSONAL HISTORY OF NICOTINE DEPENDENCE 12/24/2018 GASPER JOHNSON LITA Man Ot Z91.19 PATIENT'S NONCOMPLIANCE W [facility] 12/24/2018 GASPER JOHNSON LITA Man Ot 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 ANGIOPLASTY IMPLANT 12/26/2018 TATA HERMOSILLO APRN Ot E11 .9 TYPE 2 DIABETES MELLITUS WITHOUT COMPLIC 12/26/2018 TATA HERMOSILLO APRN Ot E78.00 PURE HYPERCHOLESTEROLEMIA, UNSPECIFIED 12/26/2018 TATA HERMOSILLO APRN Ot F41 .9 ANXIETY DISORDER, UNSPECIFIED 12/26/2018 TATA HERMOSILLO APRN Ot G47.30 SLEEP APNEA, UNSPECIFIED 12/26/2018 TATA HERMOSILLO APRN Ot I10 ESSENTIAL (PRIMARY) HYPERTENSION 12/26/2018 TATA HERMOSILLO APRN Ot I25.10 ATHSCL HEART DISEASE OF [place] CORONARY 12/26/2018 TATA HERMOSILLO APRN Ot I25 .2 OLD MYOCARDIAL INFARCTION 12/26/2018 TATA HERMOSILLO APRN Ot J44 .1 CHRONIC OBSTRUCTIVE PULMONARY DISEASE W 12/26/2018 TATA HERMOSILLO APRN Ot K21 .9 GASTRO-ESOPHAGEAL REFLUX DISEASE WITHOUT 12/26/2018 TATA HERMOSILLO APRN Ot R06.02 SHORTNESS OF BREATH 12/26/2018 TATA HERMOSILLO APRN Ot Z79 .4 FDC (CURRENT) USE OF INSULIN 12/26/2018 TATA HERMOSILLO APRN Ot Z79.52 FDC (CURRENT) USE OF SYSTEMIC STER 12/26/2018 TATA HERMOSILLO APRN Ot Z79.82 RESOLUTION EXPERT (CURRENT) USE OF ASPIRIN 12/26/2018 TATA HERMOSILLO APRN Ot Z82.49 FAMILY HX OF ISCHEM HEART DIS AND OTH DI 12/26/2018 TATA HERMOSILLO APRN Ot Z85.828 PERSONAL HISTORY OF OTHER MALIGNANT NEOP 12/26/2018 TATA HERMOSILLO APRN Ot Z87.19 PERSONAL HISTORY OF OTHER DISEASES OF [place] 12/26/2018 TATA HERMOSILLO APRN Ot Z87.891 PERSONAL HISTORY OF NICOTINE DEPENDENCE 12/26/2018 TATA HERMOSILLO APRN Ot Z88 .5 ALLERGY STATUS TO NARCOTIC AGENT STATUS 12/26/2018 TATA HERMOSILLO APRN Ot Z88 .6 ALLERGY STATUS TO ANALGESIC AGENT STATUS 12/26/2018 TATA HERMOSILLO APRN Ot Z95 .5 PRESENCE OF CORONARY ANGIOPLASTY IMPLANT 12/26/2018 TATA HERMOSILLO APRN Ot Z98.890 OTHER SPECIFIED POSTPROCEDURAL STATES 12/26/2018 TATA HERMOSILLO APRN Ot 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 12/28/2018 JASMINNDER ALIZE JOHNSONLITA S Ot 496 12/28/2018 ARMINER ALIZE JOHNSONLITA S Ot V57.89 12/28/2018 ALIZE BARAKAT DOQUELINE S Ot E11.65 TYPE 2 DIABETES MELLITUS WITH HYPERGLYCE 12/28/2018 JASMINNDER ALIZE JOHNSONLITA S Ot E78.2 MIXED HYPERLIPIDEMIA 12/28/2018 JASMINNDER ALIZE JOHNSONLITA S Ot F41.9 ANXIETY DISORDER, UNSPECIFIED 12/28/2018 JASMINNDER DO LITA S Ot G20 PARKINSON'S DISEASE 12/28/2018 JASMINNDER DO LITA S Ot G25.81 RESTLESS LEGS SYNDROME 12/28/2018 JASMINNDER DO LITA S Ot G47.30 SLEEP APNEA, UNSPECIFIED 12/28/2018 JASMINNDER DO LITA S Ot I10 ESSENTIAL (PRIMARY) HYPERTENSION 12/28/2018 JASMINNDER DO LITA S Ot I25.10 ATHSCL HEART DISEASE OF [place] CORONARY 12/28/2018 JASMINNDALIZE PABLO DOQUELINE S Ot I25.2 OLD MYOCARDIAL INFARCTION 12/28/2018 LITA BARAKAT DO Ot J44.1 CHRONIC OBSTRUCTIVE PULMONARY DISEASE W 12/28/2018 LITA BARAKAT DO Ot 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 [place] 12/28/2018 LITA BARAKAT DO S Ot K21.9 GASTRO-ESOPHAGEAL REFLUX DISEASE WITHOUT 12/28/2018 LITA BARAKAT DO S Ot L30.9 DERMATITIS, UNSPECIFIED 12/28/2018 ILTA BARAKAT DO S Ot M19.91 PRIMARY OSTEOARTHRITIS, UNSPECIFIED SITE 12/28/2018 ARMIN LITA JOHNSON S Ot Z63.8 OTHER SPECIFIED PROBLEMS RELATED TO PRIM 12/28/2018 LITA BARAKAT DO S Ot Z66 DO NOT RESUSCITATE 12/28/2018 ARMIN LITA JOHNSON S Ot Z79.4 RESOLUTION EXPERT (CURRENT) USE OF INSULIN 12/28/2018 ARMIN LITA JOHNSON S Ot Z85.828 PERSONAL HISTORY OF OTHER MALIGNANT NEOP 12/28/2018 LITA BARAKAT DO S Ot Z87.891 PERSONAL HISTORY OF NICOTINE DEPENDENCE 12/28/2018 ARMIN LITA JOHNSON S Ot Z91.19 PATIENT'S NONCOMPLIANCE W [facility] 12/28/2018 LITA BARAKAT DO Ot 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 ANGIOPLASTY IMPLANT 12/28/2018 LITA BARAKAT DO S Ot E11.40 TYPE 2 DIABETES MELLITUS WITH DIABETIC N 12/28/2018 LITA BARAKAT DO S Ot E78.00 PURE HYPERCHOLESTEROLEMIA, UNSPECIFIED 12/28/2018 LITA BARAKAT DO S Ot E87.2 ACIDOSIS 12/28/2018 LITA BARAKAT DO Ot F41.9 ANXIETY DISORDER, UNSPECIFIED 12/28/2018 LITA BARAKAT DO S Ot G25.81 RESTLESS LEGS SYNDROME 12/28/2018 ARMIN LITA JOHNSON S Ot G47.30 SLEEP APNEA, UNSPECIFIED 12/28/2018 ARMIN LITA JOHNSON S Ot I10 ESSENTIAL (PRIMARY) HYPERTENSION 12/28/2018 LITA BARAKAT DO S Ot I25.10 ATHSCL HEART DISEASE OF [place] CORONARY 12/28/2018 ORELITA AREVALO DO S Ot I25.2 OLD MYOCARDIAL INFARCTION 12/28/2018 LITA BARAKAT DO Ot J44.0 CHRONIC OBSTRUCTIVE PULMON DISEASE W ACU 12/28/2018 LITA BARAKAT DO Ot J44.1 CHRONIC OBSTRUCTIVE PULMONARY DISEASE W 12/28/2018 LITA BARAKAT DO Ot J96.20 ACUTE AND CHR RESP FAILURE, UNSP W HYPOX 12/28/2018 LITA BARAKAT DO S Ot K21.9 GASTRO-ESOPHAGEAL REFLUX DISEASE WITHOUT 12/28/2018 LITA BARAKAT DO S Ot M19.91 PRIMARY OSTEOARTHRITIS, UNSPECIFIED SITE 12/28/2018 LITA BARAKAT DO S Ot R63.4 ABNORMAL WEIGHT LOSS 12/28/2018 LITA BARAKAT DO S Ot Z87.891 PERSONAL HISTORY OF NICOTINE DEPENDENCE 12/28/2018 LITA BARAKAT DO S Ot Z91.19 PATIENT'S NONCOMPLIANCE W [facility] 12/28/2018 LITA BARAKAT DO Ot 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 ANGIOPLASTY IMPLANT 12/28/2018 LITA BARAKAT DO S Ot 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 12/30/2018 LITA BARAKAT DO S Ot E11.40 TYPE 2 DIABETES MELLITUS WITH DIABETIC N 12/30/2018 LITA BARAKAT DO S Ot E78.00 PURE HYPERCHOLESTEROLEMIA, UNSPECIFIED 12/30/2018 LITA BARAKAT DO S Ot E87.2 ACIDOSIS 12/30/2018 LITA BARAKAT DO S Ot F41.9 ANXIETY DISORDER, UNSPECIFIED 12/30/2018 LITA BARAKAT DO S Ot G25.81 RESTLESS LEGS SYNDROME 12/30/2018 LITA BARAKAT DO S Ot G47.30 SLEEP APNEA, UNSPECIFIED 12/30/2018 LITA BARAKAT DO S Ot I10 ESSENTIAL (PRIMARY) HYPERTENSION 12/30/2018 JERMAIN BARAKAT DOLINE S Ot I25.10 ATHSCL HEART DISEASE OF [place] CORONARY 12/30/2018 LITA BARAKAT DO S Ot I25.2 OLD MYOCARDIAL INFARCTION 12/30/2018 LITA BARAKAT DO Ot J18.1 LOBAR PNEUMONIA, UNSPECIFIED ORGANISM 12/30/2018 LITA BARAKAT DO Ot J44.0 CHRONIC OBSTRUCTIVE PULMON DISEASE W ACU 12/30/2018 LITA BARAKAT DO Ot J44.1 CHRONIC OBSTRUCTIVE PULMONARY DISEASE W 12/30/2018 LITA BARAKAT DO S Ot J96.20 ACUTE AND CHR RESP FAILURE, UNSP W HYPOX 12/30/2018 LITA BARAKAT DO S Ot K21.9 GASTRO-ESOPHAGEAL REFLUX DISEASE WITHOUT 12/30/2018 LITA BARAKAT DO S Ot M19.91 PRIMARY OSTEOARTHRITIS, UNSPECIFIED SITE 12/30/2018 LITA BARAKAT DO S Ot R63.4 ABNORMAL WEIGHT LOSS 12/30/2018 LITA BARAKAT DO S Ot Z87.891 PERSONAL HISTORY OF NICOTINE DEPENDENCE 12/30/2018 LITA BARAKAT DO S Ot Z91.19 PATIENT'S NONCOMPLIANCE W [facility] 12/30/2018 LITA BARAKAT DO S Ot 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 ANGIOPLASTY IMPLANT 12/30/2018 LITA BARAKAT DO S Ot 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 12/30/2018 JERMAIN BARAKAT DOLINE S Ot E11.40 TYPE 2 DIABETES MELLITUS WITH DIABETIC N 12/30/2018 LITA BARAKAT DO S Ot E78.00 PURE HYPERCHOLESTEROLEMIA, UNSPECIFIED 12/30/2018 LITA BARAKAT DO S Ot E87.2 ACIDOSIS 12/30/2018 LITA BARAKAT DO S Ot F41.9 ANXIETY DISORDER, UNSPECIFIED 12/30/2018 LITA BARAKAT DO S Ot G25.81 RESTLESS LEGS SYNDROME 12/30/2018 LITA BARAKAT DO S Ot G47.30 SLEEP APNEA, UNSPECIFIED 12/30/2018 JERMAIN BARAKAT DOLINE S Ot I10 ESSENTIAL (PRIMARY) HYPERTENSION 12/30/2018 LITA BARAKAT DO S Ot I25.10 ATHSCL HEART DISEASE OF [place] CORONARY 12/30/2018 LITA BARAKAT DO S Ot I25.2 OLD MYOCARDIAL INFARCTION 12/30/2018 LITA BARAKAT DO Ot J18.1 LOBAR PNEUMONIA, UNSPECIFIED ORGANISM 12/30/2018 LITA BARAKAT DO S Ot J44.0 CHRONIC OBSTRUCTIVE PULMON DISEASE W ACU 12/30/2018 LITA BARAKAT DO S Ot J44.1 CHRONIC OBSTRUCTIVE PULMONARY DISEASE W 12/30/2018 LITA BARAKAT DO S Ot J96.20 ACUTE AND CHR RESP FAILURE, UNSP W HYPOX 12/30/2018 JERMAIN BARAKAT DOLINE S Ot K21.9 GASTRO-ESOPHAGEAL REFLUX DISEASE WITHOUT 12/30/2018 JERMAIN BARAKAT DOLINE S Ot M19.91 PRIMARY OSTEOARTHRITIS, UNSPECIFIED SITE 12/30/2018 JERMAIN BARAKAT DOLINE S Ot R63.4 ABNORMAL WEIGHT LOSS 12/30/2018 LITA BARAKAT DO S Ot Z87.891 PERSONAL HISTORY OF NICOTINE DEPENDENCE 12/30/2018 JERMAIN BARAKAT DOLINE S Ot Z91.19 PATIENT'S NONCOMPLIANCE W [facility] 12/30/2018 LITA BARAKAT DO S Ot 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 ANGIOPLASTY IMPLANT 12/30/2018 JERMAIN BARAKAT DOLINE S Ot 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 12/30/2018 JERMAIN BARAKAT DOLINE S Ot E11.65 TYPE 2 DIABETES MELLITUS WITH HYPERGLYCE 12/30/2018 JERMAIN BARAKAT DOLINE S Ot E78.2 MIXED HYPERLIPIDEMIA 12/30/2018 JERMAIN BARAKAT DOLINE S Ot F41.9 ANXIETY DISORDER, UNSPECIFIED 12/30/2018 JERMAIN BARAKAT DOLINE S Ot G20 PARKINSON'S DISEASE 12/30/2018 JERMAIN BARAKAT DOLINE S Ot G25.81 RESTLESS LEGS SYNDROME 12/30/2018 JERMAIN BARAKAT DOLINE S Ot G47.30 SLEEP APNEA, UNSPECIFIED 12/30/2018 JERMAIN BARAKAT DOLINE S Ot I10 ESSENTIAL (PRIMARY) HYPERTENSION 12/30/2018 JERMAIN BARAKAT DOLINE S Ot I25.10 ATHSCL HEART DISEASE OF [place] CORONARY 12/30/2018 JERMAIN ABRAKAT DOLINE S Ot I25.2 OLD MYOCARDIAL INFARCTION 12/30/2018 JERMAIN BARAKAT DOLINE S Ot J44.1 CHRONIC OBSTRUCTIVE PULMONARY DISEASE W 12/30/2018 JERMAIN BARAKAT DOLINE S Ot 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 [place] 12/30/2018 LITA BARAKAT DO S Ot K21.9 GASTRO-ESOPHAGEAL REFLUX DISEASE WITHOUT 12/30/2018 LITA BARAKAT DO S Ot L30.9 DERMATITIS, UNSPECIFIED 12/30/2018 LITA BARAKAT DO S Ot M19.91 PRIMARY OSTEOARTHRITIS, UNSPECIFIED SITE 12/30/2018 LITA BARAKAT DO Ot Z63.8 OTHER SPECIFIED PROBLEMS RELATED TO PRIM 12/30/2018 GASPER JOHNSON LITA S Ot Z66 DO NOT RESUSCITATE 12/30/2018 GASPER JOHNSON LITA S Ot Z79.4 RESOLUTION EXPERT (CURRENT) USE OF INSULIN 12/30/2018 GASPER JOHNSON LITA S Ot Z85.828 PERSONAL HISTORY OF OTHER MALIGNANT NEOP 12/30/2018 GASPER JOHNSON LITA S Ot Z87.891 PERSONAL HISTORY OF NICOTINE DEPENDENCE 12/30/2018 GASPER JOHNSON LITA S Ot Z91.19 PATIENT'S NONCOMPLIANCE W OT MEDICAL TR 12/30/2018 LITA BARAKAT DO Ot 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 ANGIOPLASTY IMPLANT 01/08/2019 Ot 251.2 01/08/2019 Ot 959.19 OT INJURY OF OTHER SITES OF TRUNK 01/08/2019 Ot E000.8 OT ER EXTERNAL CAUSE STATUS 01/08/2019 Ot E030 UNSPE CIFIED ACTIVITY 01/08/2019 Ot E849.0 ACC IDENT IN HOME 01/08/2019 Ot E928.9 ACC IDENT NOS 01/08/2019 Ot 786.05 ALEJANDRA RTNESS OF BREATH 01/08/2019 JASMINIRINA JOHNSON LITA S Ot 486 PNEUMONIA, ORGANISM NOS 01/08/2019 JASMINIRINA JOHNSON LITA S Ot 496 CHR AIRWAY OBSTRUCT NEC 01/08/2019 GASPER JOHNSON LITA S Ot 786.09 RESPIRATORY ABNORM NEC 01/08/2019 JASMINIRINA JOHNSON LITA S Ot 786.50 CHEST PAIN NOS 01/08/2019 JASMINIRINA JOHNSON LITA S Ot V17.3 FAM HX-ISCHEM HEART DIS 01/08/2019 GASPER JOHNSON LITA S Ot 486 PNEUMONIA, ORGANISM NOS 01/08/2019 JASMINIRINA JOHNSON, LITA S Ot 496 CHR AIRWAY OBSTRUCT NEC 01/08/2019 JASMINNDBEV JOHNSON, LITA S Ot 786.09 RESPIRATORY ABNORM NEC 01/08/2019 GASPER JOHNSON, LITA S Ot 786.50 CHEST PAIN NOS 01/08/2019 JERMAIN BARAKAT DOLINE S Ot V17.3 FAM HX-ISCHEM HEART DIS 01/08/2019 GASPER JOHNSON, LITA S Ot 496 CHR AIRWAY OBSTRUCT NEC 01/08/2019 RAKEL THORPE DO Ot 278. 00 OBESITY, NOS 01/08/2019 RAKEL THORPE DO Ot 496 CHR AIRWAY OBSTRUCT NEC 01/08/2019 RAKEL THORPE DO Ot 786. 09 RESPIRATORY ABNORM NEC 01/08/2019 GASPER JOHNSON LITA S Ot 496 01/08/2019 JERMAIN BARAKAT DOLINE S Ot V57.89 01/08/2019 GASPER JOHNSON LITA S Ot K11.6 MUCOCELE OF SALIVARY GLAND 01/08/2019 GASPER JOHNSON, LITA S Ot R22.1 LOCALIZED SWELLING, MASS AND LUMP, NECK 01/08/2019 GASPER JOHNSON LITA S Ot M79.671 PAIN IN RIGHT FOOT 01/08/2019 JOYCE KAYE [employer] DELIV[employer] DRIVER Ot R91.1 SOLITARY PULMONARY NODULE 01/08/2019 JARAD COPPOLA [employer] DELIVERY DRIVER Ot R06.02 SHORTNESS OF BREATH 01/08/2019 JARAD COPPOLA [employer] DELIVERY DRIVER Ot R07.9 CHEST PAIN, UNSPECIFIED 01/08/2019 JARAD COPPOLA [employer] DELIVERY DRIVER Ot R53.83 OTHER FATIGUE 01/08/2019 RANDI SHAFFER FACC, ALI FACP CCDS Ot I25.10 ATHSCL HEART DISEASE OF [place] CORONARY 01/08/2019 RANDI SHAFFER FACC, ALI FACP CCDS Ot R06.02 SHORTNESS OF BREATH 01/08/2019 RAKEL THORPE DO Ot J43. 8 OTHER EMPHYSEMA 01/08/2019 RAKEL THORPE DO Ot R06. 00 DYSPNEA, UNSPECIFIED 01/08/2019 RAKEL THORPE DO Ot R91. 1 SOLITARY PULMONARY NODULE 01/08/2019 RAKEL THORPE DO Ot Z87.891 PERSONAL HISTORY OF NICOTINE DEPENDENCE 01/08/2019 ORENDER DO, LITA S Ot D64.9 ANEMIA, UNSPECIFIED 01/08/2019 CLAUDETTEBRANDIE CASSIAKYLEE KERRP Ot S49.92XA UNSP INJURY OF LEFT SHOULDER AND UPPER A 01/08/2019 CLAUDETTEBRANDIE CASSIAKYLEE KERRP Ot W19.XXXA UNSPECIFIED FALL, INITIAL ENCOUNTER 01/08/2019 CLAUDETTEBRANDIEDORISKYLEE KERRP Ot Y99.8 OTHER EXTERNAL CAUSE STATUS 01/08/2019 JERMAIN BARAKAT DOLINE S Ot J84.9 INTERSTITIAL PULMONARY DISEASE, UNSPECIF 01/08/2019 JERMAIN BARAKAT DOLINE S Ot J44.9 CHRONIC OBSTRUCTIVE PULMONARY DISEASE, U 01/08/2019 HARRIS ARGUETA [employer] DELIVERY DRIVER Ot M25.561 PAIN IN RIGHT KNEE 01/08/2019 JERMAIN BARAKAT DOLINE S Ot R05 COUGH 01/08/2019 JERMAIN BARAKAT DOLINE S Ot R06.00 DYSPNEA, UNSPECIFIED 01/08/2019 JAY SHAFFER, SAMUEL Contreras Ot S42.025D NONDISP FX OF SHAFT OF L CLAVICLE, SUBS 01/08/2019 Ot 251.2 01/08/2019 Ot 786.05 ALEJANDRA RTNESS OF BREATH 01/08/2019 JERMAIN BARAKAT DOLINE S Ot 486 PNEUMONIA, ORGANISM NOS 01/08/2019 ALIZE BARAKAT DOQUELINE S Ot 496 CHR AIRWAY OBSTRUCT NEC 01/08/2019 ALIZE BARAKAT DOQUELINE S Ot 786.09 RESPIRATORY ABNORM NEC 01/08/2019 JERMAIN BARAKAT DOLINE S Ot 786.50 CHEST PAIN NOS 01/08/2019 ALIZE BARAKAT DOQUELINE S Ot V17.3 FAM HX-ISCHEM HEART DIS 01/08/2019 ALIZE BARAKAT DOQUELINE S Ot 496 CHR AIRWAY OBSTRUCT NEC 01/08/2019 RAKEL THORPE DO Ot 278. 00 OBESITY, NOS 01/08/2019 RAKEL THORPE DO Ot 496 CHR AIRWAY OBSTRUCT NEC 01/08/2019 RAKEL THORPE DO Ot 786. 09 RESPIRATORY ABNORM NEC 01/08/2019 JASMINNDBEV JOHNSON LITA S Ot 496 01/08/2019 ALIZE BARAKAT DOQUELINE S Ot V57.89 01/08/2019 ORELITA AREVALO DO Ot K11.6 MUCOCELE OF SALIVARY [place] 01/08/2019 LITA BARAKAT DO Ot R22.1 LOCALIZED SWELLING, MASS AND LUMP, NECK 01/08/2019 LITA BARAKAT DO Ot M79.671 PAIN IN RIGHT FOOT 01/08/2019 JOYCE KAYE [employer] DELIVERY DRIVER Ot R91.1 SOLITARY PULMONARY NODULE 01/08/2019 JARAD COPPOLA [employer] DELIVERY DRIVER Ot R06.02 SHORTNESS OF BREATH 01/08/2019 JARAD COPPOLA [employer] DELIVERY DRIVER Ot R07.9 CHEST PAIN, UNSPECIFIED 01/08/2019 JARAD COPPOLA [employer] DELIVERY DRIVER Ot R53.83 OTHER FATIGUE 01/08/2019 RANDI SHAFFER FAC, ALI FACP CCDS Ot I25.10 ATHSCL HEART DISEASE OF [place] CORONARY 01/08/2019 RANDI SHAFFER FAC, ALI FACP CCDS Ot R06.02 SHORTNESS OF BREATH 01/08/2019 RAKEL THORPE DO Ot J43. 8 OTHER EMPHYSEMA 01/08/2019 RAKEL THORPE DO Ot R06. 00 DYSPNEA, UNSPECIFIED 01/08/2019 RAKEL THORPE DO Ot R91. 1 SOLITARY PULMONARY NODULE 01/08/2019 RAKEL THORPE DO Ot Z87.891 PERSONAL HISTORY OF NICOTINE DEPENDENCE 01/08/2019 LITA BARAKAT DO Ot D64.9 ANEMIA, UNSPECIFIED 01/08/2019 CASSIA THOMPSON Ot S49.92XA UNSP INJURY OF LEFT SHOULDER AND UPPER A 01/08/2019 CASSIA THOMPSON Ot W19.XXXA UNSPECIFIED FALL, INITIAL ENCOUNTER 01/08/2019 CASSIA THOMPSON Ot Y99.8 OTHER EXTERNAL CAUSE STATUS 01/08/2019 LITA BARAKAT DO Ot J84.9 INTERSTITIAL PULMONARY DISEASE, UNSPECIF 01/08/2019 LITA BARAKAT DO Ot J44.9 CHRONIC OBSTRUCTIVE PULMONARY DISEASE, U 01/08/2019 HARRIS ARGUETA [employer] PARTS DELIVERY DRIVER Ot M25.561 PAIN IN RIGHT KNEE 01/08/2019 LITA BARAKAT DO Ot R05 COUGH 01/08/2019 ORENDER DO, LITA S Ot R06.00 DYSPNEA, UNSPECIFIED 01/08/2019 JAY SHAFFER, SAMUEL Contreras Ot S42.025D NONDISP FX OF SHAFT OF L CLAVICLE, SUBS 01/20/2019 ORENDER DO, LITA S Ot 486 PNEUMONIA, ORGANISM NOS 01/20/2019 ORENDER DO, LITA S Ot 496 CHR AIRWAY OBSTRUCT NEC 01/20/2019 ORENDER DO, LITA S Ot 786.09 RESPIRATORY ABNORM NEC 01/20/2019 ORENDER DO, LITA S Ot 786.50 CHEST PAIN NOS 01/20/2019 ORENDER DO, LITA S Ot V17.3 FAM HX-ISCHEM HEART DIS 01/20/2019 ORENDER DO, LITA S Ot 496 CHR AIRWAY OBSTRUCT NEC 01/20/2019 RAKEL THORPE DO Ot 278. 00 OBESITY, NOS 01/20/2019 RAKEL THORPE DO Ot 496 CHR AIRWAY OBSTRUCT NEC 01/20/2019 RAKEL THORPE DO Ot 786. 09 RESPIRATORY ABNORM NEC 01/20/2019 ORENDER DO, LITA S Ot 496 01/20/2019 JASMINNDER DO, LITA S Ot V57.89 01/20/2019 JASMINNDER DO, LITA S Ot K11.6 MUCOCELE OF SALIVARY [place] 01/20/2019 JASMINNDER , LITA S Ot R22.1 LOCALIZED SWELLING, MASS AND LUMP, NECK 01/20/2019 JASMINNDER DO, LITA S Ot M79.671 PAIN IN RIGHT FOOT 01/20/2019 JOYCE KAYE [employer] PARTS DELIVERY DRIVER Ot R91.1 SOLITARY PULMONARY NODULE 01/20/2019 JARAD COPPOLA [employer]S DELIVERY DRIVER Ot R06.02 SHORTNESS OF BREATH 01/20/2019 JARAD CPOPOLA [employer] PARTS DELIVERY DRIVER Ot R07.9 CHEST PAIN, UNSPECIFIED 01/20/2019 JARAD COPPOLA [employer]S DELIVERY DRIVER Ot R53.83 OTHER FATIGUE 01/20/2019 RANDI SHAFFER FAC, ALI FACP CCDS Ot I25.10 ATHSCL HEART DISEASE OF [place] CORONARY 01/20/2019 RANDI SHAFFER FAC, ALI FACP CCDS Ot R06.02 SHORTNESS OF BREATH 01/20/2019 RAKEL THORPE DO Ot J43. 8 OTHER EMPHYSEMA 01/20/2019 RAKEL THORPE DO Ot R06. 00 DYSPNEA, UNSPECIFIED 01/20/2019 RAKEL THORPE DO Ot R91. 1 SOLITARY PULMONARY NODULE 01/20/2019 RAKEL THORPE DO Ot Z87.891 PERSONAL HISTORY OF NICOTINE DEPENDENCE 01/20/2019 LITA BARAKAT DO S Ot D64.9 ANEMIA, UNSPECIFIED 01/20/2019 CASSIA THOMPSON Ot S49.92XA UNSP INJURY OF LEFT SHOULDER AND UPPER A 01/20/2019 CASSIA THOMPSON Ot W19.XXXA UNSPECIFIED FALL, INITIAL ENCOUNTER 01/20/2019 CASSIA THOMPSON Ot Y99.8 OTHER EXTERNAL CAUSE STATUS 01/20/2019 JERMAIN BARAKAT DOLINE S Ot J84.9 INTERSTITIAL PULMONARY DISEASE, UNSPECIF 01/20/2019 JERMAIN BARAKAT DOLINE S Ot J44.9 CHRONIC OBSTRUCTIVE PULMONARY DISEASE, U 01/20/2019 HARRIS ARGUETA [employer] DELIVERY DRIVER Ot M25.561 PAIN IN RIGHT KNEE 01/20/2019 JERMAIN BARAKAT DOLINE S Ot R05 COUGH 01/20/2019 JERMAIN BARAKAT DOLINE S Ot R06.00 DYSPNEA, UNSPECIFIED 01/20/2019 JAY SHAFFER, SAMUEL Contreras Ot S42.025D NONDISP FX OF SHAFT OF L CLAVICLE, SUBS 02/24/2019 JERMAIN BARAKAT DOLINE S Ot 786.09 RESPIRATORY ABNORM NEC 02/24/2019 ALIZE BAARKAT DOQUELINE S Ot 786.50 CHEST PAIN NOS 02/24/2019 ALIZE BARAKAT DOQUELINE S Ot 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 00 OBESITY, NOS 02/24/2019 RAKEL THORPE DO Ot 496 CHR AIRWAY OBSTRUCT NEC 02/24/2019 RAKEL THORPE DO Ot 786. 09 RESPIRATORY ABNORM NEC 02/24/2019 ALIZE BARAKAT DOQUELINE S Ot 496 02/24/2019 ALIZE BARAKAT DOQUELINE S Ot V57.89 02/24/2019 LITA BARAKAT DO Ot K11.6 MUCOCELE OF SALIVARY [place] 02/24/2019 LITA BARAKAT DO Ot R22.1 LOCALIZED SWELLING, MASS AND LUMP, NECK 02/24/2019 LITA BARAKAT DO Ot M79.671 PAIN IN RIGHT FOOT 02/24/2019 JOYCE KAYE [employer] PARTS DELIVERY DRIVER Ot R91.1 SOLITARY PULMONARY NODULE 02/24/2019 JARAD COPPOLA [employer]S DELIVERY DRIVER Ot R06.02 SHORTNESS OF BREATH 02/24/2019 JARAD COPPOLA [employer]S DELIVERY DRIVER Ot R07.9 CHEST PAIN, UNSPECIFIED 02/24/2019 JARAD COPPOLA AUT[employer]S DELIVERY DRIVER Ot R53.83 OTHER FATIGUE 02/24/2019 RANDI SHAFFER FAC, ALI FACP CCDS Ot I25.10 ATHSCL HEART DISEASE OF [place] CORONARY 02/24/2019 RANDI SHAFFER FAC, ALI FACP CCDS Ot R06.02 SHORTNESS OF BREATH 02/24/2019 RAKEL THORPE DO Ot J43. 8 OTHER EMPHYSEMA 02/24/2019 RAKEL THORPE DO Ot R06. 00 DYSPNEA, UNSPECIFIED 02/24/2019 RAKEL THORPE DO Ot R91. 1 SOLITARY PULMONARY NODULE 02/24/2019 RAKEL THORPE DO Ot Z87.891 PERSONAL HISTORY OF NICOTINE DEPENDENCE 02/24/2019 LITA BARAKAT DO Ot D64.9 ANEMIA, UNSPECIFIED 02/24/2019 CASSIA THOMPSON Ot S49.92XA UNSP INJURY OF LEFT SHOULDER AND UPPER A 02/24/2019 CASSIA THOMPSON Ot W19.XXXA UNSPECIFIED FALL, INITIAL ENCOUNTER 02/24/2019 CASSIA THOMPSON Ot Y99.8 OTHER EXTERNAL CAUSE STATUS 02/24/2019 LITA BARAKAT DO Ot J84.9 INTERSTITIAL PULMONARY DISEASE, UNSPECIF 02/24/2019 LITA BARAKAT DO Ot J44.9 CHRONIC OBSTRUCTIVE PULMONARY DISEASE, U 02/24/2019 HARRIS ARGUETA [employer]S DELIVERY DRIVER Ot M25.561 PAIN IN RIGHT KNEE 02/24/2019 LITA BARAKAT DO Ot R05 COUGH 02/24/2019 ORENDER DO, LITA S Ot R06.00 DYSPNEA, UNSPECIFIED 02/24/2019 JAY SHAFFER, SAMUEL Contreras Ot S42.025D NONDISP FX OF SHAFT OF L CLAVICLE, SUBS 03/08/2019 TATA HERMOSILLO APRN Ot E11 .9 TYPE 2 DIABETES MELLITUS WITHOUT COMPLIC 03/08/2019 TATA HERMOSILLO APRN Ot E78.00 PURE HYPERCHOLESTEROLEMIA, UNSPECIFIED 03/08/2019 TATA HERMOSILLO APRN Ot F41 .9 ANXIETY DISORDER, UNSPECIFIED 03/08/2019 TATA HERMOSILLO APRN Ot I10 ESSENTIAL (PRIMARY) HYPERTENSION 03/08/2019 TATA HERMOSILLO APRN Ot I25.10 ATHSCL HEART DISEASE OF [place] CORONARY 03/08/2019 TATA HERMOSILLO APRN Ot I25 .2 OLD MYOCARDIAL INFARCTION 03/08/2019 TATA HERMOSILLO APRN Ot J44 .1 CHRONIC OBSTRUCTIVE PULMONARY DISEASE W 03/08/2019 TATA HERMOSILLO APRN Ot K21 .9 GASTRO-ESOPHAGEAL REFLUX DISEASE WITHOUT 03/08/2019 TATA HERMOSILLO APRN Ot R06.02 SHORTNESS OF BREATH 03/08/2019 TATA HERMOSILLO APRN Ot Z79 .4 FDC (CURRENT) USE OF INSULIN 03/08/2019 TATA HERMOSILLO APRN Ot Z79.52 RESOLUTION EXPERT (CURRENT) USE OF SYSTEMIC STER 03/08/2019 TATA HERMOSILLO APRN Ot Z79.82 RESOLUTION EXPERT (CURRENT) USE OF ASPIRIN 03/08/2019 TATA HERMOSILLO APRN Ot Z80 .0 FAMILY HISTORY OF MALIGNANT NEOPLASM OF 03/08/2019 TATA HERMOSILLO APRN Ot Z82.49 FAMILY HX OF ISCHEM HEART DIS AND OTH DI 03/08/2019 TATA HERMOSILLO APRN Ot Z83 .3 FAMILY HISTORY OF DIABETES MELLITUS 03/08/2019 TATA HERMOSILLO APRN Ot Z85.828 PERSONAL HISTORY OF OTHER MALIGNANT NEOP 03/08/2019 TATA HERMOSILLO APRN Ot Z87.891 PERSONAL HISTORY OF NICOTINE DEPENDENCE 03/08/2019 TATA HERMOSILLO APRN Ot Z88 .5 ALLERGY STATUS TO NARCOTIC AGENT STATUS 03/08/2019 TATA HERMOSILLO APRN Ot Z95 .5 PRESENCE OF CORONARY ANGIOPLASTY IMPLANT 03/08/2019 TATA HERMOSILLO APRN Ot 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 03/11/2019 TATA HERMOSILLO APRN Ot E11 .9 TYPE 2 DIABETES MELLITUS WITHOUT COMPLIC 03/11/2019 TATA HERMOSILLO APRN Ot E78.00 PURE HYPERCHOLESTEROLEMIA, UNSPECIFIED 03/11/2019 TATA HERMOSILLO APRN Ot F41 .9 ANXIETY DISORDER, UNSPECIFIED 03/11/2019 TATA HERMOSILLO APRN Ot I10 ESSENTIAL (PRIMARY) HYPERTENSION 03/11/2019 TATA HERMOSILLO APRN Ot I25.10 ATHSCL HEART DISEASE OF [place] CORONARY 03/11/2019 TATA HERMOSILLO APRN Ot I25 .2 OLD MYOCARDIAL INFARCTION 03/11/2019 TATA HERMOSILLO APRN Ot J44 .1 CHRONIC OBSTRUCTIVE PULMONARY DISEASE W 03/11/2019 TATA HERMOSILLO APRN Ot K21 .9 GASTRO-ESOPHAGEAL REFLUX DISEASE WITHOUT 03/11/2019 TATA HERMOSILLO APRN Ot R06.02 SHORTNESS OF BREATH 03/11/2019 TATA HERMOSILLO APRN Ot Z79 .4 FDC (CURRENT) USE OF INSULIN 03/11/2019 TATA HERMOSILLO APRN Ot Z79.52 FDC (CURRENT) USE OF SYSTEMIC STER 03/11/2019 TATA HERMOSILLO APRN Ot Z79.82 FDC (CURRENT) USE OF ASPIRIN 03/11/2019 TATA HERMOSILLO APRN Ot Z80 .0 FAMILY HISTORY OF MALIGNANT NEOPLASM OF 03/11/2019 TATA HERMOSILLO APRN Ot Z82.49 FAMILY HX OF ISCHEM HEART DIS AND OTH DI 03/11/2019 TATA HERMOSILLO APRN Ot Z83 .3 FAMILY HISTORY OF DIABETES MELLITUS 03/11/2019 TATA HERMOSILLO APRN Ot Z85.828 PERSONAL HISTORY OF OTHER MALIGNANT NEOP 03/11/2019 TATA HERMOSILLO APRN Ot Z87.891 PERSONAL HISTORY OF NICOTINE DEPENDENCE 03/11/2019 TATA HERMOSILLO APRN Ot Z88 .5 ALLERGY STATUS TO NARCOTIC AGENT STATUS 03/11/2019 TATA HERMOSILLO APRN Ot Z95 .5 PRESENCE OF CORONARY ANGIOPLASTY IMPLANT 03/11/2019 TATA HERMOSILLO APRN Ot 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 03/24/2019 LITA BARAKAT DO S Ot 786.09 RESPIRATORY ABNORM NEC 03/24/2019 JERMAIN BARAKAT DOLINE S Ot 786.50 CHEST PAIN NOS 03/24/2019 LITA BARAKAT DO S Ot V17.3 FAM HX-ISCHEM HEART DIS 03/24/2019 GASPER JOHNSON LITA S Ot 496 CHR AIRWAY OBSTRUCT NEC 03/24/2019 RAKEL THORPE DO Ot 278. 00 OBESITY, NOS 03/24/2019 RAKEL THORPE DO Ot 496 CHR AIRWAY OBSTRUCT NEC 03/24/2019 RAKEL THORPE DO Ot 786. 09 RESPIRATORY ABNORM NEC 03/24/2019 GASPER JOHNSON LITA S Ot 496 03/24/2019 LITA BARAKAT DO S Ot V57.89 03/24/2019 GASPER JOHNSON LITA S Ot K11.6 MUCOCELE OF SALIVARY [place] 03/24/2019 GASPER JOHNSON LITA S Ot R22.1 LOCALIZED SWELLING, MASS AND LUMP, NECK 03/24/2019 GASPER JOHNSON LITA S Ot M79.671 PAIN IN RIGHT FOOT 03/24/2019 JOYCE KAYE [employer]S DELIVERY DRIVER Ot R91.1 SOLITARY PULMONARY NODULE 03/24/2019 JARAD COPPOLA [employer] DELIVERY DRIVER Ot R06.02 SHORTNESS OF BREATH 03/24/2019 JARAD COPPOLA [employer]S DELIVERY DRIVER Ot R07.9 CHEST PAIN, UNSPECIFIED 03/24/2019 JARAD COPPOLA AUT[employer]S DELIVERY DRIVER Ot R53.83 OTHER FATIGUE 03/24/2019 RANDI SHAFFER FAC, ALI FACP CCDS Ot I25.10 ATHSCL HEART DISEASE OF [place] CORONARY 03/24/2019 RANDI SHAFFER FAC, ALI FACP CCDS Ot R06.02 SHORTNESS OF BREATH 03/24/2019 RAKEL THORPE DO Ot J43. 8 OTHER EMPHYSEMA 03/24/2019 RAKEL THORPE DO Ot R06. 00 DYSPNEA, UNSPECIFIED 03/24/2019 RAKEL THORPE DO Ot R91. 1 SOLITARY PULMONARY NODULE 03/24/2019 RAKEL THORPE DO Ot Z87.891 PERSONAL HISTORY OF NICOTINE DEPENDENCE 03/24/2019 GASPER JOHNSON LITA S Ot D64.9 ANEMIA, UNSPECIFIED 03/24/2019 CASSIA THOMPSON IT PROGRAM ENGAGEMENT DIRECTOR Ot S49.92XA UNSP INJURY OF LEFT SHOULDER AND UPPER A 03/24/2019 CASSIA THOMPSON Ot W19.XXXA UNSPECIFIED FALL, INITIAL ENCOUNTER 03/24/2019 WILKINSCASSIA BOLANOS Ot Y99.8 OTHER EXTERNAL CAUSE STATUS 03/24/2019 JERMAIN BARAKAT DOLINE S Ot J84.9 INTERSTITIAL PULMONARY DISEASE, UNSPECIF 03/24/2019 LITA BARAKAT DO S Ot J44.9 CHRONIC OBSTRUCTIVE PULMONARY DISEASE, U 03/24/2019 HARRIS ARGUETA APRN Ot M25.561 PAIN IN RIGHT KNEE 03/24/2019 JERMAIN BARAKAT DOLINE S Ot R05 COUGH 03/24/2019 JASMINNDALIZE PABLO DOQUELINE S Ot R06.00 DYSPNEA, UNSPECIFIED 03/24/2019 JAY SHAFFER, SAMUEL Contreras Ot S42.025D NONDISP FX OF SHAFT OF L CLAVICLE, SUBS 03/25/2019 ALIZE BARAKAT DOQUELINE S Ot 496 03/25/2019 ALIZE BARAKAT DOQUELINE S Ot V57.89 03/26/2019 JASMINNDALIZE PABLO DOQUELINE S Ot E11.9 TYPE 2 DIABETES MELLITUS WITHOUT COMPLIC 03/26/2019 JASMINNDBEV JOHNSON LITA S Ot E78.00 PURE HYPERCHOLESTEROLEMIA, UNSPECIFIED 03/26/2019 GASPER JOHNSON LITA S Ot F41.9 ANXIETY DISORDER, UNSPECIFIED 03/26/2019 JASMINNDBEV JOHNSON LITA S Ot G25.81 RESTLESS LEGS SYNDROME 03/26/2019 ALIZE BARAKAT DOQUELINE S Ot G47.30 SLEEP APNEA, UNSPECIFIED 03/26/2019 JASMINNDALIZE PABLO DOQUELINE S Ot I10 ESSENTIAL (PRIMARY) HYPERTENSION 03/26/2019 GASPER JOHNSON LITA S Ot I25.10 ATHSCL HEART DISEASE OF [place] CORONARY 03/26/2019 GASPER JOHNSON LITA S Ot I25.2 OLD MYOCARDIAL INFARCTION 03/26/2019 ALIZE BARAKAT DOQUELINE S Ot J30.9 ALLERGIC RHINITIS, UNSPECIFIED 03/26/2019 ALIZE BARAKAT DOQUELINE S Ot J44.1 CHRONIC OBSTRUCTIVE PULMONARY DISEASE W 03/26/2019 ALIZE BARAKAT DOQUELINE S Ot 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 [place] 03/26/2019 LITA BARAKAT DO Ot K21.9 GASTRO-ESOPHAGEAL REFLUX DISEASE WITHOUT 03/26/2019 LITA BARAKAT DO Ot Z79.4 RESOLUTION EXPERT (CURRENT) USE OF INSULIN 03/26/2019 LITA BARAKAT DO Ot Z87.891 PERSONAL HISTORY OF NICOTINE DEPENDENCE 03/26/2019 LITA BARAKAT DO Ot Z91.19 PATIENT'S NONCOMPLIANCE W [facility] 03/26/2019 LITA BARAKAT DO Ot 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 ANGIOPLASTY IMPLANT 03/28/2019 KENDALL, HARRIS R [employer] DELIVERY DRIVER Ot R06.00 DYSPNEA, UNSPECIFIED 03/28/2019 KENDALL, HARRIS R [employer] DELIVERY DRIVER Ot R42 DIZZINESS AND GIDDINESS 03/28/2019 KENDALL, HARRIS R [employer] DELIVERY DRIVER Ot R06.00 DYSPNEA, UNSPECIFIED 03/28/2019 KENDALL, HARRIS R [employer] DELIVERY DRIVER Ot R42 DIZZINESS AND GIDDINESS 04/07/2019 KENDALL, HARRIS R [employer] DELIVERY DRIVER Ot R06.00 DYSPNEA, UNSPECIFIED 04/07/2019 KENDALL, HARRIS R [employer] DELIVERY DRIVER Ot R42 DIZZINESS AND GIDDINESS 06/03/2019 JASMINIRINA JOHNSON LITA S Ot 786.09 RESPIRATORY ABNORM NEC 06/03/2019 JASMINIRINA JOHNSON LITA S Ot 786.50 CHEST PAIN NOS 06/03/2019 JASMINIRINA JOHNSON LITA S Ot V17.3 FAM HX-ISCHEM HEART DIS 06/03/2019 ARMINBEV JOHNSON LITA S Ot 496 CHR AIRWAY OBSTRUCT NEC 06/03/2019 RAKEL THORPE DO Ot 278. 00 OBESITY, NOS 06/03/2019 RAKEL THORPE DO Ot 496 CHR AIRWAY OBSTRUCT NEC 06/03/2019 RAKEL THORPE DO Ot 786. 09 RESPIRATORY ABNORM NEC 06/03/2019 ARMINBEV JOHNSON LITA S Ot 496 06/03/2019 ARMINBEV JOHNSON LITA S Ot V57.89 06/03/2019 ARMINBEV JOHNSON LITA S Ot K11.6 MUCOCELE OF SALIVARY [place] 06/03/2019 GASPER LITA S Ot R22.1 LOCALIZED SWELLING, MASS AND LUMP, NECK 06/03/2019 LITA BARAKAT DO S Ot M79.671 PAIN IN RIGHT FOOT 06/03/2019 JOYCE KAYE [employer] DELIVERY DRIVER Ot R91.1 SOLITARY PULMONARY NODULE 06/03/2019 JARAD COPPOLA [employer] DELIVERY DRIVER Ot R06.02 SHORTNESS OF BREATH 06/03/2019 JARAD COPPOLA [employer] DELIVERY DRIVER Ot R07.9 CHEST PAIN, UNSPECIFIED 06/03/2019 JARAD COPPOLA [employer] DELIVERY DRIVER Ot R53.83 OTHER FATIGUE 06/03/2019 RANDI SHAFFER FAC, ALI FACP CCDS Ot I25.10 ATHSCL HEART DISEASE OF [place] CORONARY 06/03/2019 RANDI SHAFFER FAC, ALI FACP CCDS Ot R06.02 SHORTNESS OF BREATH 06/03/2019 RAKEL THORPE DO Ot J43. 8 OTHER EMPHYSEMA 06/03/2019 RAKEL THORPE DO Ot R06. 00 DYSPNEA, UNSPECIFIED 06/03/2019 RAKEL THORPE DO Ot R91. 1 SOLITARY PULMONARY NODULE 06/03/2019 RAKEL THORPE DO Ot Z87.891 PERSONAL HISTORY OF NICOTINE DEPENDENCE 06/03/2019 LITA BARAKAT DO S Ot D64.9 ANEMIA, UNSPECIFIED 06/03/2019 CASSIA THOMPSON Ot S49.92XA UNSP INJURY OF LEFT SHOULDER AND UPPER A 06/03/2019 CASSIA THOMPSON Ot W19.XXXA UNSPECIFIED FALL, INITIAL ENCOUNTER 06/03/2019 CASSIA THOMPSON Ot Y99.8 OTHER EXTERNAL CAUSE STATUS 06/03/2019 JERMAIN BARAKAT DOLINE S Ot J84.9 INTERSTITIAL PULMONARY DISEASE, UNSPECIF 06/03/2019 JERMAIN BARAKAT DOLINE S Ot J44.9 CHRONIC OBSTRUCTIVE PULMONARY DISEASE, U 06/03/2019 HARRIS ARGUETA [employer]S DELIVERY DRIVER Ot M25.561 PAIN IN RIGHT KNEE 06/03/2019 JERMAIN BARAKAT DOLINE S Ot R05 COUGH 06/03/2019 JERMAIN BARAKAT DOLINE S Ot R06.00 DYSPNEA, UNSPECIFIED 06/03/2019 JAY SHAFFER, SAMUEL Contreras Ot S42.025D NONDISP FX OF SHAFT OF L CLAVICLE, SUBS 06/03/2019 HARRIS ARGUETA [employer] DELIVERY DRIVER Ot R06.00 DYSPNEA, UNSPECIFIED 06/03/2019 HARRIS ARGUETA [employer]S DELIVERY DRIVER Ot R42 DIZZINESS AND GIDDINESS 06/24/2019 JASMINNDER , LITA S Ot 786.09 RESPIRATORY ABNORM NEC 06/24/2019 JASMINNDER , LITA S Ot 786.50 CHEST PAIN NOS 06/24/2019 JASMINNDER DO, LITA S Ot V17.3 FAM HX-ISCHEM HEART DIS 06/24/2019 JASMINNDER DO, LITA S Ot 496 CHR AIRWAY OBSTRUCT NEC 06/24/2019 RAKEL THORPE DO Ot 278. 00 OBESITY, NOS 06/24/2019 RAKEL THORPE DO Ot 496 CHR AIRWAY OBSTRUCT NEC 06/24/2019 RAKEL THORPE DO Ot 786. 09 RESPIRATORY ABNORM NEC 06/24/2019 JASMINNDER DO, LITA S Ot 496 06/24/2019 ARMINER LITA S Ot V57.89 06/24/2019 JASMINNDER DO, LITA S Ot K11.6 MUCOCELE OF [place]IV[place] 06/24/2019 JASMINNDER , LITA S Ot R22.1 LOCALIZED SWELLING, MASS AND LUMP, NECK 06/24/2019 ARMINER DO LITA S Ot M79.671 PAIN IN RIGHT FOOT 06/24/2019 JOYCE KAYE [employer] DELIVERY DRIVER Ot R91.1 SOLITARY PULMONARY NODULE 06/24/2019 JARAD COPPOLA [employer] DELIVERY DRIVER Ot R06.02 SHORTNESS OF BREATH 06/24/2019 JARAD COPPOLA [employer]S DELIVERY DRIVER Ot R07.9 CHEST PAIN, UNSPECIFIED 06/24/2019 JARAD COPPOLA [employer]S DELIVERY DRIVER Ot R53.83 OTHER FATIGUE 06/24/2019 RANDI SHAFFER FACC, TARI FACP CCDS Ot I25.10 ATHSCL HEART DISEASE OF [place] CORONARY 06/24/2019 RANDI SHAFFER FACC, ALI FACP CCDS Ot R06.02 SHORTNESS OF BREATH 06/24/2019 RAKEL THORPE DO Ot J43. 8 OTHER EMPHYSEMA 06/24/2019 RAKEL THORPE DO Ot R06. 00 DYSPNEA, UNSPECIFIED 06/24/2019 RAKEL THORPE DO Ot R91. 1 SOLITARY PULMONARY NODULE 06/24/2019 RAKEL THORPE DO Ot Z87.891 PERSONAL HISTORY OF NICOTINE DEPENDENCE 06/24/2019 LITA BARAKAT DO S Ot D64.9 ANEMIA, UNSPECIFIED 06/24/2019 CASSIA THOMPSON DREW Ot S49.92XA UNSP INJURY OF LEFT SHOULDER AND UPPER A 06/24/2019 CLAUDETTEBRANDIE CASSIAKYLEE KERRP Ot W19.XXXA UNSPECIFIED FALL, INITIAL ENCOUNTER 06/24/2019 WILKINSBRANDIE CASSIAKYLEE KERRP Ot Y99.8 OTHER EXTERNAL CAUSE STATUS 06/24/2019 LITA BARAKAT DO S Ot J84.9 INTERSTITIAL PULMONARY DISEASE, UNSPECIF 06/24/2019 LITA BARAKAT DO S Ot J44.9 CHRONIC OBSTRUCTIVE PULMONARY DISEASE, U 06/24/2019 HARRIS ARGUETA APRN Ot M25.561 PAIN IN RIGHT KNEE 06/24/2019 LITA BARAKAT DO S Ot R05 COUGH 06/24/2019 JERMAIN BARAKAT DOLINE S Ot R06.00 DYSPNEA, UNSPECIFIED 06/24/2019 JAY SHAFFER, SAMUEL Contreras Ot S42.025D NONDISP FX OF SHAFT OF L CLAVICLE, SUBS 06/24/2019 HARRIS ARGUETA APRN Ot R06.00 DYSPNEA, UNSPECIFIED 06/24/2019 HARRIS ARGUETA APRN Ot R42 DIZZINESS AND GIDDINESS 06/30/2019 JERMAIN BARAKAT DOLINE S Ot D50.9 IRON DEFICIENCY ANEMIA, UNSPECIFIED 06/30/2019 JERMAIN BARAKAT DOLINE S Ot D50.9 IRON DEFICIENCY ANEMIA, UNSPECIFIED 06/30/2019 JERMAIN BARAKAT DOLINE S Ot D50.9 IRON DEFICIENCY ANEMIA, UNSPECIFIED 07/02/2019 JERMAIN BARAKAT DOLINE S Ot K57.90 DVRTCLOS OF INTEST, PART UNSP, W/O PERF 07/02/2019 JERMAIN BARAKAT DOLINE S Ot K82.8 OTHER SPECIFIED DISEASES OF [place] 07/02/2019 JERMAIN BARAKAT DOLINE S Ot N28.9 DISORDER OF KIDNEY AND URETER, UNSPECIFI 07/02/2019 JERMAIN BARAKAT DOLINE S Ot R16.0 HEPATOMEGALY, NOT ELSEWHERE CLASSIFIED 07/04/2019 LITA BARAKAT DO S Ot K57.90 DVRTCLOS OF INTEST, PART UNSP, W/O PERF 07/04/2019 LITA BARAKAT DO S Ot K82.8 OTHER SPECIFIED DISEASES OF [place] 07/04/2019 JERMAIN BARAKAT DOLINE S Ot N28.9 DISORDER OF KIDNEY AND URETER, UNSPECIFI 07/04/2019 JERMAIN BARAKAT DOLINE S Ot R16.0 HEPATOMEGALY, NOT ELSEWHERE CLASSIFIED 07/04/2019 JERMAIN BARAKAT DOLINE S Ot 786.09 RESPIRATORY ABNORM NEC 07/04/2019 JERMAIN BARAKAT DOLINE S Ot 786.50 CHEST PAIN NOS 07/04/2019 LITA BARAKAT DO S Ot V17.3 FAM HX-ISCHEM HEART DIS 07/04/2019 GASPER JOHNSON LITA S Ot 496 CHR AIRWAY OBSTRUCT NEC 07/04/2019 RAKEL THORPE DO Ot 278. 00 OBESITY, NOS 07/04/2019 RAKEL THORPE DO Ot 496 CHR AIRWAY OBSTRUCT NEC 07/04/2019 RAKEL THORPE DO Ot 786. 09 RESPIRATORY ABNORM NEC 07/04/2019 GASPER JOHNSON LITA S Ot 496 07/04/2019 GASPER JOHNSON LITA S Ot V57.89 07/04/2019 GASPER JOHNSON LITA S Ot K11.6 MUCOCELE OF SALIVARY [place] 07/04/2019 GASPER JOHNSON LITA S Ot R22.1 LOCALIZED SWELLING, MASS AND LUMP, NECK 07/04/2019 GASPER JOHNSON LITA S Ot M79.671 PAIN IN RIGHT FOOT 07/04/2019 JOYCE KAYE AUT[employer] PARTS DELIVERY DRIVER Ot R91.1 SOLITARY PULMONARY NODULE 07/04/2019 JARAD COPPOLA [employer]S DELIVERY DRIVER Ot R06.02 SHORTNESS OF BREATH 07/04/2019 JARAD COPPOLA [employer]S DELIVERY DRIVER Ot R07.9 CHEST PAIN, UNSPECIFIED 07/04/2019 JARAD COPPOLA [employer]S DELIVERY DRIVER Ot R53.83 OTHER FATIGUE 07/04/2019 RANDI SHAFFER FACC, TARI KELLEYP CCDS Ot I25.10 ATHSCL HEART DISEASE OF [place] CORONARY 07/04/2019 RANDI SHAFFER FAC, ALI FACP CCDS Ot R06.02 SHORTNESS OF BREATH 07/04/2019 ILA DO RAKEL Ashley Ot J43. 8 OTHER EMPHYSEMA 07/04/2019 ILA DO RAKEL Ashley Ot R06. 00 DYSPNEA, UNSPECIFIED 07/04/2019 ILA DO RAKEL Ashley Ot R91. 1 SOLITARY PULMONARY NODULE 07/04/2019 ILA DO RAKEL Ashley Ot Z87.891 PERSONAL HISTORY OF NICOTINE DEPENDENCE 07/04/2019 LITA BARAKAT DO S Ot D64.9 ANEMIA, UNSPECIFIED 07/04/2019 CASSIA THOMPSON Ot S49.92XA UNSP INJURY OF LEFT SHOULDER AND UPPER A 07/04/2019 CASSIA THOMPSON Ot W19.XXXA UNSPECIFIED FALL, INITIAL ENCOUNTER 07/04/2019 CASSIA THOMPSON Ot Y99.8 OTHER EXTERNAL CAUSE STATUS 07/04/2019 LITA BARAKAT DO Ot J84.9 INTERSTITIAL PULMONARY DISEASE, UNSPECIF 07/04/2019 LITA BARAKAT DO S Ot J44.9 CHRONIC OBSTRUCTIVE PULMONARY DISEASE, U 07/04/2019 HARRIS ARGUETA [employer] DELIVERY DRIVER Ot M25.561 PAIN IN RIGHT KNEE 07/04/2019 LITA BARAKAT DO S Ot R05 COUGH 07/04/2019 LITA BARAKAT DO S Ot R06.00 DYSPNEA, UNSPECIFIED 07/04/2019 JAY SHAFFER, SAMUEL Contreras Ot S42.025D NONDISP FX OF SHAFT OF L CLAVICLE, SUBS 07/04/2019 HARRIS ARGUETA R [employer] DELIVERY DRIVER Ot R06.00 DYSPNEA, UNSPECIFIED 07/04/2019 HARRIS ARGUETA R [employer] DELIVERY DRIVER Ot R42 DIZZINESS AND GIDDINESS 07/04/2019 LITA BARAKAT DO S Ot K57.90 DVRTCLOS OF INTEST, PART UNSP, W/O PERF 07/04/2019 LITA BARAKAT DO S Ot K82.8 OTHER SPECIFIED DISEASES OF GALLBLADDER 07/04/2019 LITA BARAKAT DO S Ot N28.9 DISORDER OF KIDNEY AND URETER, UNSPECIFI 07/04/2019 ALIZE BARAKAT DOQUELINE S Ot R16.0 HEPATOMEGALY, NOT ELSEWHERE CLASSIFIED 07/09/2019 ORENDER , LITA S Ot K57.90 DVRTCLOS OF INTEST, PART UNSP, W/O PERF 07/09/2019 ORENDER DO, LITA S Ot K82.8 OTHER SPECIFIED DISEASES OF [place] 07/09/2019 ORENDER DO, LITA S Ot N28.9 DISORDER OF KIDNEY AND URETER, UNSPECIFI 07/09/2019 ORENDER DO, LITA S Ot R16.0 HEPATOMEGALY, NOT ELSEWHERE CLASSIFIED 07/10/2019 ORENDER DO, LITA S Ot I12.9 HYPERTENSIVE CHRONIC KIDNEY DISEASE W ST 07/10/2019 ORENDER DO, LITA S Ot N18.9 CHRONIC KIDNEY DISEASE, UNSPECIFIED 07/10/2019 ORENDER DO, LITA S Ot N28.1 CYST OF KIDNEY, ACQUIRED 07/17/2019 JOSE KATZ MD Ot E11. 9 TYPE 2 DIABETES MELLITUS WITHOUT COMPLIC 07/17/2019 JOSE KATZ MD Ot E78. 00 PURE HYPERCHOLESTEROLEMIA, UNSPECIFIED 07/17/2019 JOSE KATZ MD Ot F41. 9 ANXIETY DISORDER, UNSPECIFIED 07/17/2019 JOSE KATZ MD Ot G47. 30 SLEEP APNEA, UNSPECIFIED 07/17/2019 JOSE KATZ MD Ot I10 ESSENTIAL (PRIMARY) HYPERTENSION 07/17/2019 JOSE KATZ MD Ot I25. 10 ATHSCL HEART DISEASE OF [place] CORONARY 07/17/2019 JOSE KATZ MD Ot I25. 2 OLD MYOCARDIAL INFARCTION 07/17/2019 JOSE KATZ MD Ot J44. 1 CHRONIC OBSTRUCTIVE PULMONARY DISEASE W 07/17/2019 JOSE KATZ MD Ot K21. 9 GASTRO-ESOPHAGEAL REFLUX DISEASE WITHOUT 07/17/2019 JOSE KATZ MD Ot R06. 02 SHORTNESS OF BREATH 07/17/2019 JOSE KATZ MD Ot Z77. 22 CNTCT W AND EXPSR TO ENVIRON TOBACCO SMO 07/17/2019 JOSE KATZ MD Ot Z79. 4 FDC (CURRENT) USE OF INSULIN 07/17/2019 JOSE KATZ MD Ot Z79. 52 RESOLUTION EXPERT (CURRENT) USE OF SYSTEMIC STER 07/17/2019 JOSE KATZ MD Ot Z79. 82 FDC (CURRENT) USE OF ASPIRIN 07/17/2019 JOSE KATZ MD Ot Z80. 0 FAMILY HISTORY OF MALIGNANT NEOPLASM OF 07/17/2019 JOSE KATZ MD Ot Z82. 49 FAMILY HX OF ISCHEM HEART DIS AND OTH DI 07/17/2019 JOSE KATZ MD, Ot Z85.828 PERSONAL HISTORY OF OTHER MALIGNANT NEOP 07/17/2019 JOSE KATZ MD Ot Z87.891 PERSONAL HISTORY OF NICOTINE DEPENDENCE 07/17/2019 JOSE KATZ MD, Ot Z88. 5 ALLERGY STATUS TO NARCOTIC AGENT STATUS 07/17/2019 JOSE KATZ MD, Ot Z95. 5 PRESENCE OF CORONARY ANGIOPLASTY IMPLANT 07/17/2019 JOSE KATZ MD Ot Z99. 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 07/17/2019 JOSE KATZ MD, Ot Z99. 89 DEPENDENCE ON OTHER ENABLING MACHINES AN 07/22/2019 LITA BARAKAT DO Ot I12.9 HYPERTENSIVE CHRONIC KIDNEY DISEASE W ST 07/22/2019 LITA BARAKAT DO Ot N18.9 CHRONIC KIDNEY DISEASE, UNSPECIFIED 07/22/2019 LITA BARAKAT DO S Ot N28.1 CYST OF KIDNEY, ACQUIRED 07/23/2019 STEVAN PATTON DO Ot Z01.818 ENCOUNTER FOR OTHER PREPROCEDURAL EXAMIN 07/25/2019 JOSE KATZ MD Ot E11. 9 TYPE 2 DIABETES MELLITUS WITHOUT COMPLIC 07/25/2019 JOSE KATZ MD Ot E78. 00 PURE HYPERCHOLESTEROLEMIA, UNSPECIFIED 07/25/2019 JOSE KATZ MD Ot F41. 9 ANXIETY DISORDER, UNSPECIFIED 07/25/2019 JOSE KATZ MD Ot G47. 30 SLEEP APNEA, UNSPECIFIED 07/25/2019 JOSE KATZ MD Ot I10 ESSENTIAL (PRIMARY) HYPERTENSION 07/25/2019 JOSE KATZ MD Ot I25. 10 ATHSCL HEART DISEASE OF [place] CORONARY 07/25/2019 JOSE KATZ MD, Ot I25. 2 OLD MYOCARDIAL INFARCTION 07/25/2019 JOSE KATZ MD, Ot J44. 1 CHRONIC OBSTRUCTIVE PULMONARY DISEASE W 07/25/2019 JOSE KATZ MD, Ot K21. 9 GASTRO-ESOPHAGEAL REFLUX DISEASE WITHOUT 07/25/2019 JOSE KATZ MD Ot R06. 02 SHORTNESS OF BREATH 07/25/2019 JOSE KATZ MD Ot Z77. 22 CNTCT W AND EXPSR TO ENVIRON TOBACCO SMO 07/25/2019 JOSE KATZ MD, Ot Z79. 4 FDC (CURRENT) USE OF INSULIN 07/25/2019 JOSE KATZ MD Ot Z79. 52 FDC (CURRENT) USE OF SYSTEMIC STER 07/25/2019 JOSE KATZ MD, Ot Z79. 82 FDC (CURRENT) USE OF ASPIRIN 07/25/2019 JOSE KATZ MD, Ot Z80. 0 FAMILY HISTORY OF MALIGNANT NEOPLASM OF 07/25/2019 JOSE KATZ MD, Ot Z82. 49 FAMILY HX OF ISCHEM HEART DIS AND OTH DI 07/25/2019 JOSE KATZ MD, Ot Z85.828 PERSONAL HISTORY OF OTHER MALIGNANT NEOP 07/25/2019 JOSE KATZ MD, Ot Z87.891 PERSONAL HISTORY OF NICOTINE DEPENDENCE 07/25/2019 JOSE KATZ MD, Ot Z88. 5 ALLERGY STATUS TO NARCOTIC AGENT STATUS 07/25/2019 JOSE KATZ MD, Ot Z95. 5 PRESENCE OF CORONARY ANGIOPLASTY IMPLANT 07/25/2019 JOSE KATZ MD Ot Z99. 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 07/25/2019 JOSE KATZ MD Ot Z99. 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 9 TYPE 2 DIABETES MELLITUS WITHOUT COMPLIC 07/29/2019 STEVAN PATTON DO Ot G47. 33 OBSTRUCTIVE SLEEP APNEA (ADULT) (PEDIATR 07/29/2019 STEVAN PATTON DO Ot I11. 0 HYPERTENSIVE HEART DISEASE WITH HEART FA 07/29/2019 STEVAN PATTON DO Ot I25.119 ATHSCL HEART DISEASE OF [place] COR ART W 07/29/2019 SETVAN PATTON DO Ot I50. 9 HEART FAILURE, UNSPECIFIED 07/29/2019 STEVAN PATTON DO Ot J43. 9 EMPHYSEMA, UNSPECIFIED 07/29/2019 STEVAN PATTON DO Ot K21. 9 GASTRO-ESOPHAGEAL REFLUX DISEASE WITHOUT 07/29/2019 STEVAN PATTON DO Ot K29. 70 GASTRITIS, UNSPECIFIED, WITHOUT BLEEDING 07/29/2019 STEVAN PATTON DO Ot K29. 80 DUODENITIS WITHOUT BLEEDING 07/29/2019 STEVAN PATTON DO Ot K31. 89 OTHER DISEASES OF STOMACH AND DUODENUM 07/29/2019 STEVAN PATTON DO Ot R63. 4 ABNORMAL WEIGHT LOSS 07/29/2019 STEVAN PATTON DO Ot Z79. 02 FDC (CURRENT) USE OF ANTITHROMBOTI 07/29/2019 STEVAN PATTON DO Ot Z79. 4 RESOLUTION EXPERT (CURRENT) USE OF INSULIN 07/29/2019 STEVAN PATTON DO Ot Z79. 82 RESOLUTION EXPERT (CURRENT) USE OF ASPIRIN 07/29/2019 STEVAN PATTON DO Ot Z79. 84 FDC (CURRENT) USE OF ORAL HYPOGLYC 07/29/2019 STEVAN PATTON DO Ot Z82. 49 FAMILY HX OF ISCHEM HEART DIS AND OTH DI 07/29/2019 STEVAN PATTON DO Ot Z83. 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 9 TYPE 2 DIABETES MELLITUS WITHOUT COMPLIC 08/05/2019 STEVAN PATTON DO Ot G47. 33 OBSTRUCTIVE SLEEP APNEA (ADULT) (PEDIATR 08/05/2019 STEVAN PATTON DO Ot I11. 0 HYPERTENSIVE HEART DISEASE WITH HEART FA 08/05/2019 STEVAN PATTON DO Ot I25.119 ATHSCL HEART DISEASE OF [place] COR ART W 08/05/2019 STEVAN PATTON DO Ot I50. 9 HEART FAILURE, UNSPECIFIED 08/05/2019 STEVAN PATTON DO Ot J43. 9 EMPHYSEMA, UNSPECIFIED 08/05/2019 STEVAN PATTON DO Ot K21. 9 GASTRO-ESOPHAGEAL REFLUX DISEASE WITHOUT 08/05/2019 STEVAN PATTON DO Ot K29. 70 GASTRITIS, UNSPECIFIED, WITHOUT BLEEDING 08/05/2019 STEVAN PATTON DO Ot K29. 80 DUODENITIS WITHOUT BLEEDING 08/05/2019 STEVAN PATTON DO Ot K31. 89 OTHER DISEASES OF STOMACH AND DUODENUM 08/05/2019 STEVAN PATTON DO Ot R63. 4 ABNORMAL WEIGHT LOSS 08/05/2019 STEVAN PATTON DO Ot Z79. 02 FDC (CURRENT) USE OF ANTITHROMBOTI 08/05/2019 STEVAN PATTON DO Ot Z79. 4 RESOLUTION EXPERT (CURRENT) USE OF INSULIN 08/05/2019 STEVAN PATTON DO Ot Z79. 82 FDC (CURRENT) USE OF ASPIRIN 08/05/2019 STEVAN PATTON DO Ot Z79. 84 FDC (CURRENT) USE OF ORAL HYPOGLYC 08/05/2019 STEVAN PATTON DO Ot Z82. 49 FAMILY HX OF ISCHEM HEART DIS AND OTH DI 08/05/2019 STEVAN PATTON DO Ot Z83. 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 9 TYPE 2 DIABETES MELLITUS WITHOUT COMPLIC 08/05/2019 STEVAN PATTON DO Ot G47. 33 OBSTRUCTIVE SLEEP APNEA (ADULT) (PEDIATR 08/05/2019 STEVAN PATTON DO Ot I11. 0 HYPERTENSIVE HEART DISEASE WITH HEART FA 08/05/2019 STEVAN PATTON DO Ot I25.119 ATHSCL HEART DISEASE OF [place] COR ART W 08/05/2019 STEVAN PATTON DO Ot I50. 9 HEART FAILURE, UNSPECIFIED 08/05/2019 STEVAN PATTON DO Ot J43. 9 EMPHYSEMA, UNSPECIFIED 08/05/2019 STEVAN PATTON DO Ot K21. 9 GASTRO-ESOPHAGEAL REFLUX DISEASE WITHOUT 08/05/2019 STEVAN PATTON DO Ot K29. 70 GASTRITIS, UNSPECIFIED, WITHOUT BLEEDING 08/05/2019 STEVAN PATTON DO Ot K29. 80 DUODENITIS WITHOUT BLEEDING 08/05/2019 STEVAN PATTON DO Ot K31. 89 OTHER DISEASES OF STOMACH AND DUODENUM 08/05/2019 STEVAN PATTON DO Ot R63. 4 ABNORMAL WEIGHT LOSS 08/05/2019 STEVAN PATTON DO Ot Z79. 02 FDC (CURRENT) USE OF ANTITHROMBOTI 08/05/2019 STEVAN PATTON DO Ot Z79. 4 FDC (CURRENT) USE OF INSULIN 08/05/2019 STEVAN PATTON DO Ot Z79. 82 RESOLUTION EXPERT (CURRENT) USE OF ASPIRIN 08/05/2019 STEVAN PATTON DO Ot Z79. 84 FDC (CURRENT) USE OF ORAL HYPOGLYC 08/05/2019 STEVAN PATTON DO Ot Z82. 49 FAMILY HX OF ISCHEM HEART DIS AND OTH DI 08/05/2019 STEVAN PATTON DO Ot Z83. 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 9 ANEMIA, UNSPECIFIED 08/07/2019 STEVAN PATTON DO Ot E11. 9 TYPE 2 DIABETES MELLITUS WITHOUT COMPLIC 08/07/2019 STEVAN PATTON DO Ot G47. 33 OBSTRUCTIVE SLEEP APNEA (ADULT) (PEDIATR 08/07/2019 STEVAN PATTON DO Ot I11. 0 HYPERTENSIVE HEART DISEASE WITH HEART FA 08/07/2019 STEVAN PATTON DO Ot I25. 10 ATHSCL HEART DISEASE OF [place] CORONARY 08/07/2019 STEVAN PATTON DO Ot I50. 9 HEART FAILURE, UNSPECIFIED 08/07/2019 STEVAN PATTON DO Ot I65. 23 OCCLUSION AND STENOSIS OF BILATERAL BAZZI 08/07/2019 STEVAN PATTON DO Ot J43. 9 EMPHYSEMA, UNSPECIFIED 08/07/2019 STEVAN PATTON DO Ot K57. 30 DVRTCLOS OF LG INT W/O PERFORATION OR AB 08/07/2019 STEVAN PATTON DO Ot Z79. 02 RESOLUTION EXPERT (CURRENT) USE OF ANTITHROMBOTI 08/07/2019 STEVAN PATTON DO Ot Z79. 4 FDC (CURRENT) USE OF INSULIN 08/07/2019 STEVAN PATTON DO Ot Z79. 82 RESOLUTION EXPERT (CURRENT) USE OF ASPIRIN 08/07/2019 STEVAN PATTON DO Ot Z79.899 OTHER RESOLUTION EXPERT (CURRENT) DRUG THERAPY 08/07/2019 STEVAN PATTON DO Ot Z82. 49 FAMILY HX OF ISCHEM HEART DIS AND OTH DI 08/07/2019 STEVAN PATTON DO Ot Z83. 3 FAMILY HISTORY OF DIABETES MELLITUS 08/07/2019 STEVAN PATTON DO Ot Z87.891 PERSONAL HISTORY OF NICOTINE DEPENDENCE 08/07/2019 STEVAN PATTON DO Ot Z88. 6 ALLERGY STATUS TO ANALGESIC AGENT STATUS 08/07/2019 STEVAN PATTON DO Ot Z99. 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 9 TYPE 2 DIABETES MELLITUS WITHOUT COMPLIC 08/07/2019 STEVAN PATTON DO Ot G47. 33 OBSTRUCTIVE SLEEP APNEA (ADULT) (PEDIATR 08/07/2019 STEVAN PATTON DO Ot I11. 0 HYPERTENSIVE HEART DISEASE WITH HEART FA 08/07/2019 STEVAN PATTON DO Ot I25.119 ATHSCL HEART DISEASE OF [place] ART W 08/07/2019 STEVAN PATTON DO Ot I50. 9 HEART FAILURE, UNSPECIFIED 08/07/2019 STEVAN PATTON DO Ot J43. 9 EMPHYSEMA, UNSPECIFIED 08/07/2019 STEVAN PATTON DO Ot K21. 9 GASTRO-ESOPHAGEAL REFLUX DISEASE WITHOUT 08/07/2019 STEAVN PATTON DO Ot K29. 70 GASTRITIS, UNSPECIFIED, WITHOUT BLEEDING 08/07/2019 STEVAN PATTON DO Ot K29. 80 DUODENITIS WITHOUT BLEEDING 08/07/2019 STEVAN PATTON DO Ot K31. 89 OTHER DISEASES OF STOMACH AND DUODENUM 08/07/2019 STEVAN PATTON DO Ot R63. 4 ABNORMAL WEIGHT LOSS 08/07/2019 STEVAN PATTON DO Ot Z79. 02 RESOLUTION EXPERT (CURRENT) USE OF ANTITHROMBOTI 08/07/2019 STEVAN PATTON DO Ot Z79. 4 FDC (CURRENT) USE OF INSULIN 08/07/2019 STEVAN PATTON DO Ot Z79. 82 FDC (CURRENT) USE OF ASPIRIN 08/07/2019 STEVAN PATTON DO Ot Z79. 84 RESOLUTION EXPERT (CURRENT) USE OF ORAL HYPOGLYC 08/07/2019 STEVAN PATTON DO Ot Z82. 49 FAMILY HX OF ISCHEM HEART DIS AND OTH DI 08/07/2019 STEVAN PATTON DO Ot Z83. 3 FAMILY HISTORY OF DIABETES MELLITUS 08/07/2019 STEVAN PATTON DO Ot Z87.891 PERSONAL HISTORY OF NICOTINE DEPENDENCE 08/14/2019 GARCIA DO, RULA L Ot E11.9 TYPE 2 DIABETES MELLITUS WITHOUT COMPLIC 08/14/2019 GARCIA DO, RULA L Ot E78.0 0 PURE HYPERCHOLESTEROLEMIA, UNSPECIFIED 08/14/2019 GARCIA DO, RULA L Ot F41.9 ANXIETY DISORDER, UNSPECIFIED 08/14/2019 GARCIA DO, RULA L Ot G47.3 0 SLEEP APNEA, UNSPECIFIED 08/14/2019 GARCIA DO, RULA L Ot I10 ESSENTIAL (PRIMARY) HYPERTENSION 08/14/2019 GARCIA DO, RULA L Ot I25.1 0 ATHSCL HEART DISEASE OF [place] CORONARY 08/14/2019 GARCIA DO, RULA L Ot I25.2 OLD MYOCARDIAL INFARCTION 08/14/2019 GARCIA DO, RULA L Ot J44.9 CHRONIC OBSTRUCTIVE PULMONARY DISEASE, U 08/14/2019 GARCIA DO, RULA L Ot K21.9 GASTRO-ESOPHAGEAL REFLUX DISEASE WITHOUT 08/14/2019 GARCIA DO, RULA L Ot R06.0 2 SHORTNESS OF BREATH 08/14/2019 GARCIA DO, RULA L Ot Z79.4 FDC (CURRENT) USE OF INSULIN 08/14/2019 GARCIA DO, RULA L Ot Z79.5 2 RESOLUTION EXPERT (CURRENT) USE OF SYSTEMIC STER 08/14/2019 GARCIA DO, RULA L Ot Z79.8 2 RESOLUTION EXPERT (CURRENT) USE OF ASPIRIN 08/14/2019 GARCIA DO, RULA L Ot Z80.0 FAMILY HISTORY OF MALIGNANT NEOPLASM OF 08/14/2019 GARCIA DO, RULA L Ot Z82.4 9 FAMILY HX OF ISCHEM HEART DIS AND OTH DI 08/14/2019 GARCIA DO, RULA L Ot Z85.8 28 PERSONAL HISTORY OF OTHER MALIGNANT NEOP 08/14/2019 GARCIA DO, RULA L Ot Z87.8 91 PERSONAL HISTORY OF NICOTINE DEPENDENCE 08/14/2019 GARCIA DO, RULA L Ot Z88.5 ALLERGY STATUS TO NARCOTIC AGENT STATUS 08/14/2019 GARCIA DO, RULA L Ot 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 ANGIOPLASTY IMPLANT 08/14/2019 GARCIA DO, RULA L Ot Z99.8 1 DEPENDENCE ON SUPPLEMENTAL OXYGEN 08/18/2019 GARCIA DO, RULA L Ot E11.9 TYPE 2 DIABETES MELLITUS WITHOUT COMPLIC 08/18/2019 GARCIA DO, RULA L Ot E78.0 0 PURE HYPERCHOLESTEROLEMIA, UNSPECIFIED 08/18/2019 GARCIA DO, RULA L Ot F41.9 ANXIETY DISORDER, UNSPECIFIED 08/18/2019 GARCIA DO, RULA L Ot G47.3 0 SLEEP APNEA, UNSPECIFIED 08/18/2019 GARCIA DO, RULA L Ot I10 ESSENTIAL (PRIMARY) HYPERTENSION 08/18/2019 GARCIA DO, RULA L Ot I25.1 0 ATHSCL HEART DISEASE OF [place] CORONARY 08/18/2019 GARCIA DO, RULA L Ot I25.2 OLD MYOCARDIAL INFARCTION 08/18/2019 GARCIA DO, RULA L Ot J44.9 CHRONIC OBSTRUCTIVE PULMONARY DISEASE, U 08/18/2019 GARCIA DO, RULA L Ot K21.9 GASTRO-ESOPHAGEAL REFLUX DISEASE WITHOUT 08/18/2019 GARCIA DO, RULA L Ot R06.0 2 SHORTNESS OF BREATH 08/18/2019 GARCIA DO, RULA L Ot Z79.4 RESOLUTION EXPERT (CURRENT) USE OF INSULIN 08/18/2019 GARCIA DO, RULA L Ot Z79.5 2 RESOLUTION EXPERT (CURRENT) USE OF SYSTEMIC STER 08/18/2019 GARCIA DO, RULA L Ot Z79.8 2 RESOLUTION EXPERT (CURRENT) USE OF ASPIRIN 08/18/2019 GARCIA DO, RULA L Ot Z80.0 FAMILY HISTORY OF MALIGNANT NEOPLASM OF 08/18/2019 GARCIA DO, RULA L Ot Z82.4 9 FAMILY HX OF ISCHEM HEART DIS AND OTH DI 08/18/2019 GARCIA HOLLY JOHNSONVOR L Ot Z85.8 28 PERSONAL HISTORY OF OTHER MALIGNANT NEOP 08/18/2019 KELVIN GARCIA DOR L Ot Z87.8 91 PERSONAL HISTORY OF NICOTINE DEPENDENCE 08/18/2019 JOSE JOHNSON RULA L Ot Z88.5 ALLERGY STATUS TO NARCOTIC AGENT STATUS 08/18/2019 GARCIA DO RULA L Ot 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 ANGIOPLASTY IMPLANT 08/18/2019 KELVIN GARCIA DOR L Ot Z99.8 1 DEPENDENCE ON SUPPLEMENTAL OXYGEN 08/22/2019 STEVAN PATTON DO Ot 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 9 ANEMIA, UNSPECIFIED 08/22/2019 STEVAN PATTON DO Ot E11. 9 TYPE 2 DIABETES MELLITUS WITHOUT COMPLIC 08/22/2019 STEVAN PATTON DO Ot G47. 33 OBSTRUCTIVE SLEEP APNEA (ADULT) (PEDIATR 08/22/2019 STEVAN PATTON DO Ot I11. 0 HYPERTENSIVE HEART DISEASE WITH HEART FA 08/22/2019 STEVAN PATTON DO Ot I25. 10 ATHSCL HEART DISEASE OF [place] CORONARY 08/22/2019 STEVAN PATTON DO Ot I50. 9 HEART FAILURE, UNSPECIFIED 08/22/2019 STEVAN PATTON DO Ot I65. 23 OCCLUSION AND STENOSIS OF BILATERAL BAZZI 08/22/2019 STEVAN PATTON DO Ot J43. 9 EMPHYSEMA, UNSPECIFIED 08/22/2019 STEVAN PATTON DO Ot K57. 30 DVRTCLOS OF LG INT W/O PERFORATION OR AB 08/22/2019 STEVAN PATTON DO Ot Z79. 02 RESOLUTION EXPERT (CURRENT) USE OF ANTITHROMBOTI 08/22/2019 STEVAN PATTON DO Ot Z79. 4 FDC (CURRENT) USE OF INSULIN 08/22/2019 STEVAN PATTON DO Ot Z79. 82 RESOLUTION EXPERT (CURRENT) USE OF ASPIRIN 08/22/2019 STEVAN PATTON DO Ot Z79.899 OTHER RESOLUTION EXPERT (CURRENT) DRUG THERAPY 08/22/2019 STEVAN PATTON DO Ot Z82. 49 FAMILY HX OF ISCHEM HEART DIS AND OTH DI 08/22/2019 STEVAN PATTON DO Ot Z83. 3 FAMILY HISTORY OF DIABETES MELLITUS 08/22/2019 STEVAN PATTON DO Ot Z87.891 PERSONAL HISTORY OF NICOTINE DEPENDENCE 08/22/2019 STEVAN PATTON DO Ot Z88. 6 ALLERGY STATUS TO ANALGESIC AGENT STATUS 08/22/2019 STEVAN PATTON DO Ot Z99. 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 9 ANEMIA, UNSPECIFIED 08/27/2019 STEVAN PATTON DO Ot E11. 9 TYPE 2 DIABETES MELLITUS WITHOUT COMPLIC 08/27/2019 STEVAN PATTON DO Ot G47. 33 OBSTRUCTIVE SLEEP APNEA (ADULT) (PEDIATR 08/27/2019 STEVAN PATTON DO Ot I11. 0 HYPERTENSIVE HEART DISEASE WITH HEART FA 08/27/2019 STEVAN PATTON DO Ot I25. 10 ATHSCL HEART DISEASE OF [place] CORONARY 08/27/2019 STEVAN PATTON DO Ot I50. 9 HEART FAILURE, UNSPECIFIED 08/27/2019 STEVAN PATTON DO Ot I65. 23 OCCLUSION AND STENOSIS OF BILATERAL BAZZI 08/27/2019 STEVAN PATTON DO Ot J43. 9 EMPHYSEMA, UNSPECIFIED 08/27/2019 STEVAN PATTON DO Ot K57. 30 DVRTCLOS OF LG INT W/O PERFORATION OR AB 08/27/2019 STEVAN PATTON DO Ot Z79. 02 RESOLUTION EXPERT (CURRENT) USE OF ANTITHROMBOTI 08/27/2019 STEVAN PATTON DO Ot Z79. 4 RESOLUTION EXPERT (CURRENT) USE OF INSULIN 08/27/2019 STEVAN PATTON DO Ot Z79. 82 FDC (CURRENT) USE OF ASPIRIN 08/27/2019 STEVAN PATTON DO Ot Z79.899 OTHER RESOLUTION EXPERT (CURRENT) DRUG THERAPY 08/27/2019 STEVAN PATTON DO Ot Z82. 49 FAMILY HX OF ISCHEM HEART DIS AND OTH DI 08/27/2019 STEVAN PATTON DO Ot Z83. 3 FAMILY HISTORY OF DIABETES MELLITUS 08/27/2019 STEVAN PATTON DO Ot Z87.891 PERSONAL HISTORY OF NICOTINE DEPENDENCE 08/27/2019 STEVAN PATTON DO Ot Z88. 6 ALLERGY STATUS TO ANALGESIC AGENT STATUS 08/27/2019 STEVAN PATTON DO Ot Z99. 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 09/05/2019 JOYCE KAYE APRN Ot G47.33 OBSTRUCTIVE SLEEP APNEA (ADULT) (PEDIATR 09/05/2019 JOYCE KAYE APRN Ot J43.9 EMPHYSEMA, UNSPECIFIED 09/05/2019 JOYCE KAYE APRN Ot Z87.891 PERSONAL HISTORY OF NICOTINE DEPENDENCE 09/15/2019 RAKEL THORPE DO Ot THYROIDNOD 09/18/2019 RAKEL THORPE DO Ot E04. 1 NONTOXIC SINGLE THYROID NODULE 09/18/2019 RAKEL THORPE DO Ot J43. 9 EMPHYSEMA, UNSPECIFIED 09/18/2019 RAKEL THORPE DO Ot Z87.891 PERSONAL HISTORY OF NICOTINE DEPENDENCE 09/18/2019 JOYCE KAYE APRN Ot G47.33 OBSTRUCTIVE SLEEP APNEA (ADULT) (PEDIATR 09/18/2019 JOYCE KAYE APRN Ot J43.9 EMPHYSEMA, UNSPECIFIED 09/18/2019 JOYCE KAYE APRN Ot R91.1 SOLITARY PULMONARY NODULE 09/18/2019 JOYCE KAYE APRN Ot Z87.891 PERSONAL HISTORY OF NICOTINE DEPENDENCE 09/18/2019 LITA BARAKAT DO S Ot 786.09 RESPIRATORY ABNORM NEC 09/18/2019 LITA BARAKAT DO S Ot 786.50 CHEST PAIN NOS 09/18/2019 LITA BARAKAT DO S Ot V17.3 FAM HX-ISCHEM HEART DIS 09/18/2019 JERMAIN BARAKAT DOLINE S Ot 496 CHR AIRWAY OBSTRUCT NEC 09/18/2019 RAKEL THORPE DO Ot 278. 00 OBESITY, NOS 09/18/2019 RAKEL THORPE DO Ot 496 CHR AIRWAY OBSTRUCT NEC 09/18/2019 RAKEL THORPE DO Ot 786. 09 RESPIRATORY ABNORM NEC 09/18/2019 JERMAIN BARAKAT DOLINE S Ot 496 09/18/2019 LITA BARAKAT DO S Ot V57.89 09/18/2019 LITA BARAKAT DO S Ot K11.6 MUCOCELE OF SALIVARY GLAND 09/18/2019 LITA BARAKAT DO S Ot R22.1 LOCALIZED SWELLING, MASS AND LUMP, NECK 09/18/2019 LITA BARAKAT DO S Ot M79.671 PAIN IN RIGHT FOOT 09/18/2019 JOYCE KAYE [employer] DELIV[employer] DRIVER Ot R91.1 SOLITARY PULMONARY NODULE 09/18/2019 JARAD COPPOLA [employer] DELIV[employer] DRIVER Ot R06.02 SHORTNESS OF BREATH 09/18/2019 JARAD COPPOLA [employer] DELIV[employer] DR[employer] Ot R07.9 CHEST PAIN, UNSPECIFIED 09/18/2019 JARAD COPPOLA [employer] DELIV[employer] Ot R53.83 OTHER FATIGUE 09/18/2019 RANDI SHAFFER FAC, ALI FACP CCDS Ot I25.10 ATHSCL HEART DISEASE OF [place] CORONARY 09/18/2019 RANDI SHAFFER FAC, ALI FACP CCDS Ot R06.02 SHORTNESS OF BREATH 09/18/2019 RAKEL THORPE DO Ot J43. 8 OTHER EMPHYSEMA 09/18/2019 RAKEL THORPE DO Ot R06. 00 DYSPNEA, UNSPECIFIED 09/18/2019 RAKEL THORPE DO Ot R91. 1 SOLITARY PULMONARY NODULE 09/18/2019 RAKEL THORPE DO Ot Z87.891 PERSONAL HISTORY OF NICOTINE DEPENDENCE 09/18/2019 LITA BARAKAT DO S Ot D64.9 ANEMIA, UNSPECIFIED 09/18/2019 CASSIA THOMPSON Ot S49.92XA UNSP INJURY OF LEFT SHOULDER AND UPPER A 09/18/2019 CASSIA THOMPSON Ot W19.XXXA UNSPECIFIED FALL, INITIAL ENCOUNTER 09/18/2019 CASSIA THOMPSON Ot Y99.8 OTHER EXTERNAL CAUSE STATUS 09/18/2019 LITA BARAKAT DO S Ot J84.9 INTERSTITIAL PULMONARY DISEASE, UNSPECIF 09/18/2019 JERMAIN BARAKAT DOLINE S Ot J44.9 CHRONIC OBSTRUCTIVE PULMONARY DISEASE, U 09/18/2019 HARRIS ARGUETA [employer] DELIVERY DRIVER Ot M25.561 PAIN IN RIGHT KNEE 09/18/2019 JERMAIN BARAKAT DOLINE S Ot R05 COUGH 09/18/2019 LITA BARAKAT DO S Ot R06.00 DYSPNEA, UNSPECIFIED 09/18/2019 JAY SHAFFER, SAMUEL Contreras Ot S42.025D NONDISP FX OF SHAFT OF L CLAVICLE, SUBS 09/18/2019 HARRIS ARGUETA [employer] DELIVERY DRIVER Ot R06.00 DYSPNEA, UNSPECIFIED 09/18/2019 HARRIS ARGUETA [employer] DELIVERY DRIVER Ot R42 DIZZINESS AND GIDDINESS 09/18/2019 LITA BARAKAT DO S Ot K57.90 DVRTCLOS OF INTEST, PART UNSP, W/O PERF 09/18/2019 JASMINNDJERMAIN PABLO DOLINE S Ot K82.8 OTHER SPECIFIED DISEASES OF GALLBLADDER 09/18/2019 JASMINNDER ALIZE JOHNSONLITA S Ot N28.9 DISORDER OF KIDNEY AND URETER, UNSPECIFI 09/18/2019 JASMINNDALIZE PABLO DOQUELINE S Ot R16.0 HEPATOMEGALY, NOT ELSEWHERE CLASSIFIED 09/18/2019 ALIZE BARAKAT DOQUELINE S Ot I12.9 HYPERTENSIVE CHRONIC KIDNEY DISEASE W ST 09/18/2019 LITA BARAKAT DO S Ot N18.9 CHRONIC KIDNEY DISEASE, UNSPECIFIED 09/18/2019 JASMINNDER ALIZE JOHNSONLITA S Ot N28.1 CYST OF KIDNEY, ACQUIRED 09/18/2019 STEVAN PATTON DO Ot 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 9 ANEMIA, UNSPECIFIED 09/18/2019 STEVAN PATTON DO Ot E11. 9 TYPE 2 DIABETES MELLITUS WITHOUT COMPLIC 09/18/2019 STEVAN PATTON DO Ot G47. 33 OBSTRUCTIVE SLEEP APNEA (ADULT) (PEDIATR 09/18/2019 STEVAN PATTON DO Ot I11. 0 HYPERTENSIVE HEART DISEASE WITH HEART FA 09/18/2019 STEVAN PATTON DO Ot I25. 10 ATHSCL HEART DISEASE OF [place] CORONARY 09/18/2019 STEVAN PATTON DO Ot I50. 9 HEART FAILURE, UNSPECIFIED 09/18/2019 STEVAN PATTON DO Ot I65. 23 OCCLUSION AND STENOSIS OF BILATERAL BAZZI 09/18/2019 STEVAN PATTON DO Ot J43. 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 02 RESOLUTION EXPERT (CURRENT) USE OF ANTITHROMBOTI 09/18/2019 STEVAN PATTON DO Ot Z79. 4 RESOLUTION EXPERT (CURRENT) USE OF INSULIN 09/18/2019 STEVAN PATTON DO Ot Z79. 82 FDC (CURRENT) USE OF ASPIRIN 09/18/2019 STEVAN PATTON DO Ot Z79.899 OTHER FDC (CURRENT) DRUG THERAPY 09/18/2019 STEVAN PATTON DO Ot Z82. 49 FAMILY HX OF ISCHEM HEART DIS AND OTH DI 09/18/2019 STEVAN PATTON DO Ot Z83. 3 FAMILY HISTORY OF DIABETES MELLITUS 09/18/2019 STEVAN PATTON DO Ot Z87.891 PERSONAL HISTORY OF NICOTINE DEPENDENCE 09/18/2019 STEVAN PATTON DO Ot Z88. 6 ALLERGY STATUS TO ANALGESIC AGENT STATUS 09/18/2019 STEVAN PATTON DO Ot Z99. 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 09/18/2019 JOYCE KAYE APRN Ot G47.33 OBSTRUCTIVE SLEEP APNEA (ADULT) (PEDIATR 09/18/2019 JOYCE KAYE APRN Ot J43.9 EMPHYSEMA, UNSPECIFIED 09/18/2019 JOYCE KAYE APRN Ot Z87.891 PERSONAL HISTORY OF NICOTINE DEPENDENCE 09/18/2019 JOYCE KAYE APRN Ot G47.33 OBSTRUCTIVE SLEEP APNEA (ADULT) (PEDIATR 09/18/2019 JOYCE KAYE APRN Ot J43.9 EMPHYSEMA, UNSPECIFIED 09/18/2019 JOYCE KAYE APRN Ot R91.1 SOLITARY PULMONARY NODULE 09/18/2019 JOYCE KAYE APRN Ot Z87.891 PERSONAL HISTORY OF NICOTINE DEPENDENCE 09/18/2019 RAKEL THORPE DO Ot E04. 1 NONTOXIC SINGLE THYROID NODULE 09/18/2019 RAKEL THORPE DO Ot J43. 9 EMPHYSEMA, UNSPECIFIED 09/18/2019 RAKEL THORPE DO Ot Z87.891 PERSONAL HISTORY OF NICOTINE DEPENDENCE 09/18/2019 RAKEL THORPE DO Ot E04. 1 NONTOXIC SINGLE THYROID NODULE 09/18/2019 RAKEL THORPE DO Ot J43. 9 EMPHYSEMA, UNSPECIFIED 09/18/2019 RAKEL THORPE DO Ot Z87.891 PERSONAL HISTORY OF NICOTINE DEPENDENCE 09/18/2019 RAKEL THORPE DO Ot E04. 1 NONTOXIC SINGLE THYROID NODULE 09/18/2019 RAKEL THORPE DO Ot J43. 9 EMPHYSEMA, UNSPECIFIED 09/18/2019 RAKEL THORPE DO Ot Z87.891 PERSONAL HISTORY OF NICOTINE DEPENDENCE 09/18/2019 RAKEL THORPE DO Ot E04. 1 NONTOXIC SINGLE THYROID NODULE 09/18/2019 RAKEL THORPE DO Ot J43. 9 EMPHYSEMA, UNSPECIFIED 09/18/2019 RAKEL THORPE DO Ot Z87.891 PERSONAL HISTORY OF NICOTINE DEPENDENCE 09/18/2019 GASPER DO LITA S Ot 786.09 RESPIRATORY ABNORM NEC 09/18/2019 JERMAIN BARAKAT DOLINE S Ot 786.50 CHEST PAIN NOS 09/18/2019 JERMAIN BARAKAT DOLINE S Ot V17.3 FAM HX-ISCHEM HEART DIS 09/18/2019 JERMAIN BARAKAT DOLINE S Ot 496 CHR AIRWAY OBSTRUCT NEC 09/18/2019 ILA DO RAKEL Ramirez Ot 278. 00 OBESITY, NOS 09/18/2019 RAKEL THORPE DO Ot 496 CHR AIRWAY OBSTRUCT NEC 09/18/2019 ILA JOHNSON RAKEL Ramirez Ot 786. 09 RESPIRATORY ABNORM NEC 09/18/2019 ALIZE BARAKAT DOQUELINE S Ot 496 09/18/2019 JERMAIN BARAKAT DOLINE S Ot V57.89 09/18/2019 JERMAIN BARAKAT DOLINE S Ot K11.6 MUCOCELE OF SALIVARY GLAND 09/18/2019 JERMAIN BARAKAT DOLINE S Ot R22.1 LOCALIZED SWELLING, MASS AND LUMP, NECK 09/18/2019 JERMAIN BARAKAT DOLINE S Ot M79.671 PAIN IN RIGHT FOOT 09/18/2019 JOYCE KAYE [employer] DELIV[employer] DRIVER Ot R91.1 SOLITARY PULMONARY NODULE 09/18/2019 JARAD COPPOLA [employer] DELIV[employer] DRIVER Ot R06.02 SHORTNESS OF BREATH 09/18/2019 JARAD COPPOLA [employer] DELIV[employer] DRIVER Ot R07.9 CHEST PAIN, UNSPECIFIED 09/18/2019 JARAD COPPOLA APRN Ot R53.83 OTHER FATIGUE 09/18/2019 RANDI SHAFFER FACC, TARI BRYANT CCDS Ot I25.10 ATHSCL HEART DISEASE OF [place] CORONARY 09/18/2019 RANDI SHAFFER [facility] CCDS Ot R06.02 SHORTNESS OF BREATH 09/18/2019 ILA DO RAKEL M Ot J43. 8 OTHER EMPHYSEMA 09/18/2019 RAKEL THORPE DO Ot R06. 00 DYSPNEA, UNSPECIFIED 09/18/2019 ILA DO RAKEL Ashley Ot R91. 1 SOLITARY PULMONARY NODULE 09/18/2019 RAKEL THORPE DO Ot Z87.891 PERSONAL HISTORY OF NICOTINE DEPENDENCE 09/18/2019 LITA BARAKAT DO S Ot D64.9 ANEMIA, UNSPECIFIED 09/18/2019 CASSIA THOMPSON Ot S49.92XA UNSP INJURY OF LEFT SHOULDER AND UPPER A 09/18/2019 CASSIA THOMPSON Ot W19.XXXA UNSPECIFIED FALL, INITIAL ENCOUNTER 09/18/2019 CASSIA THOMPSON Ot Y99.8 OTHER EXTERNAL CAUSE STATUS 09/18/2019 LITA BARAKAT DO S Ot J84.9 INTERSTITIAL PULMONARY DISEASE, UNSPECIF 09/18/2019 LITA BARAKAT DO S Ot J44.9 CHRONIC OBSTRUCTIVE PULMONARY DISEASE, U 09/18/2019 HARRIS ARGUETA APRN Ot M25.561 PAIN IN RIGHT KNEE 09/18/2019 JERMAIN BARAKAT DOLINE S Ot R05 COUGH 09/18/2019 JERMAIN BARAKAT DOLINE S Ot R06.00 DYSPNEA, UNSPECIFIED 09/18/2019 JAY SHAFFER, SAMUEL Contreras Ot S42.025D NONDISP FX OF SHAFT OF L CLAVICLE, SUBS 09/18/2019 HARRIS ARGUETA [employer] DELIVERY DRIVER Ot R06.00 DYSPNEA, UNSPECIFIED 09/18/2019 HARRIS ARGUETA APRN Ot R42 DIZZINESS AND GIDDINESS 09/18/2019 JERMAIN BARAKAT DOLINE S Ot K57.90 DVRTCLOS OF INTEST, PART UNSP, W/O PERF 09/18/2019 JERMAIN BARAKAT DOLINE S Ot K82.8 OTHER SPECIFIED DISEASES OF GALLBLADDER 09/18/2019 LITA BARAKAT DO S Ot N28.9 DISORDER OF KIDNEY AND URETER, UNSPECIFI 09/18/2019 ALIZE BARAKAT DOQUELINE S Ot R16.0 HEPATOMEGALY, NOT ELSEWHERE CLASSIFIED 09/18/2019 LITA BARAKAT DO S Ot I12.9 HYPERTENSIVE CHRONIC KIDNEY DISEASE W ST 09/18/2019 LITA BARAKAT DO S Ot N18.9 CHRONIC KIDNEY DISEASE, UNSPECIFIED 09/18/2019 LITA BARAKAT DO S Ot N28.1 CYST OF KIDNEY, ACQUIRED 09/18/2019 STEVAN PATTON DO Ot 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 9 ANEMIA, UNSPECIFIED 09/18/2019 STEVAN PATTON DO Ot E11. 9 TYPE 2 DIABETES MELLITUS WITHOUT COMPLIC 09/18/2019 STEVAN PATTON DO Ot G47. 33 OBSTRUCTIVE SLEEP APNEA (ADULT) (PEDIATR 09/18/2019 STEVAN PATTON DO Ot I11. 0 HYPERTENSIVE HEART DISEASE WITH HEART FA 09/18/2019 STEVAN PATTON DO Ot I25. 10 ATHSCL HEART DISEASE OF [place] CORONARY 09/18/2019 STEVAN PATTON DO Ot I50. 9 HEART FAILURE, UNSPECIFIED 09/18/2019 STEVAN PATTON DO Ot I65. 23 OCCLUSION AND STENOSIS OF BILATERAL BAZZI 09/18/2019 STEVAN PATTON DO Ot J43. 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 02 RESOLUTION EXPERT (CURRENT) USE OF ANTITHROMBOTI 09/18/2019 STEVAN PATTON DO Ot Z79. 4 RESOLUTION EXPERT (CURRENT) USE OF INSULIN 09/18/2019 STEVAN PATTON DO Ot Z79. 82 RESOLUTION EXPERT (CURRENT) USE OF ASPIRIN 09/18/2019 STEVAN PATTON DO Ot Z79.899 OTHER RESOLUTION EXPERT (CURRENT) DRUG THERAPY 09/18/2019 STEVAN PATTON DO Ot Z82. 49 FAMILY HX OF ISCHEM HEART DIS AND OTH DI 09/18/2019 STEVAN PATTON DO Ot Z83. 3 FAMILY HISTORY OF DIABETES MELLITUS 09/18/2019 STEVAN PATTON DO Ot Z87.891 PERSONAL HISTORY OF NICOTINE DEPENDENCE 09/18/2019 STEVAN PATTON DO Ot Z88. 6 ALLERGY STATUS TO ANALGESIC AGENT STATUS 09/18/2019 STEVAN PATTON DO Ot Z99. 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 09/18/2019 JOYCE KAYE APRN Ot G47.33 OBSTRUCTIVE SLEEP APNEA (ADULT) (PEDIATR 09/18/2019 JOYCE KAYE APRN Ot J43.9 EMPHYSEMA, UNSPECIFIED 09/18/2019 JOYCE KAYE APRN Ot Z87.891 PERSONAL HISTORY OF NICOTINE DEPENDENCE 09/18/2019 JOYCE KAYE APRN Ot G47.33 OBSTRUCTIVE SLEEP APNEA (ADULT) (PEDIATR 09/18/2019 JOYCE KAYE APRN Ot J43.9 EMPHYSEMA, UNSPECIFIED 09/18/2019 JOYCE KAYE APRN Ot R91.1 SOLITARY PULMONARY NODULE 09/18/2019 JOYCE KAYE APRN Ot Z87.891 PERSONAL HISTORY OF NICOTINE DEPENDENCE 09/18/2019 RAKEL THORPE DO Ot E04. 1 NONTOXIC SINGLE THYROID NODULE 09/18/2019 RAKEL THORPE DO Ot J43. 9 EMPHYSEMA, UNSPECIFIED 09/18/2019 RAKEL THORPE DO Ot Z87.891 PERSONAL HISTORY OF NICOTINE DEPENDENCE 09/18/2019 LELE DEGROOT MD Ot E11.9 TYPE 2 DIABETES MELLITUS WITHOUT COMPLIC 09/18/2019 LELE DEGROOT MD Ot E78.00 PURE HYPERCHOLESTEROLEMIA, UNSPECIFIED 09/18/2019 LELE DEGROOT MD Ot F41.9 ANXIETY DISORDER, UNSPECIFIED 09/18/2019 LELE DEGROOT MD Ot I10 ESSENTIAL (PRIMARY) HYPERTENSION 09/18/2019 LELE DEGROOT MD Ot I25.10 ATHSCL HEART DISEASE OF [place] CORONARY 09/18/2019 LELE DEGROOT MD Ot I25.2 OLD MYOCARDIAL INFARCTION 09/18/2019 LELE DEGROOT MD Ot J44.9 CHRONIC OBSTRUCTIVE PULMONARY DISEASE, U 09/18/2019 LELE DEGROOT MD Ot K21.9 GASTRO-ESOPHAGEAL REFLUX DISEASE WITHOUT 09/18/2019 LELE DEGROOT MD Ot R06.02 SHORTNESS OF BREATH 09/18/2019 LELE DEGROOT MD Ot Z77.22 CNTCT W AND EXPSR TO ENVIRON TOBACCO SMO 09/18/2019 LELE DEGROOT MD, Ot Z79.02 RESOLUTION EXPERT (CURRENT) USE OF ANTITHROMBOTI 09/18/2019 LELE DEGROOT MD, Ot Z79.4 RESOLUTION EXPERT (CURRENT) USE OF INSULIN 09/18/2019 LELE DEGROOT MD, Ot Z79.52 FDC (CURRENT) USE OF SYSTEMIC STER 09/18/2019 LELE DEGROOT MD, Ot Z79.82 RESOLUTION EXPERT (CURRENT) USE OF ASPIRIN 09/18/2019 LELE DEGROOT MD, Ot Z80.3 FAMILY HISTORY OF MALIGNANT NEOPLASM OF 09/18/2019 LELE DEGROOT MD, Ot Z82.49 FAMILY HX OF ISCHEM HEART DIS AND OTH DI 09/18/2019 LELE DEGROOT MD, Ot Z85.828 PERSONAL HISTORY OF OTHER MALIGNANT NEOP 09/18/2019 LELE DEGROOT MD, Ot Z87.891 PERSONAL HISTORY OF NICOTINE DEPENDENCE 09/18/2019 LELE DEGROOT MD, Ot Z88.5 ALLERGY STATUS TO NARCOTIC AGENT STATUS 09/18/2019 LELE DEGROOT MD Ot 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 ANGIOPLASTY IMPLANT 09/18/2019 LELE DEGROOT MD Ot 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 09/22/2019 LELE DEGROOT MD Ot E11.9 TYPE 2 DIABETES MELLITUS WITHOUT COMPLIC 09/22/2019 LELE DEGROOT MD Ot E78.00 PURE HYPERCHOLESTEROLEMIA, UNSPECIFIED 09/22/2019 LELE DEGROOT MD Ot F41.9 ANXIETY DISORDER, UNSPECIFIED 09/22/2019 LELE DEGROOT MD Ot I10 ESSENTIAL (PRIMARY) HYPERTENSION 09/22/2019 LELE DEGROOT MD Ot I25.10 ATHSCL HEART DISEASE OF [place] CORONARY 09/22/2019 LELE DEGROOT MD Ot I25.2 OLD MYOCARDIAL INFARCTION 09/22/2019 LELE DEGROOT MD, Ot J44.9 CHRONIC OBSTRUCTIVE PULMONARY DISEASE, U 09/22/2019 LELE DEGROOT MD Ot K21.9 GASTRO-ESOPHAGEAL REFLUX DISEASE WITHOUT 09/22/2019 LELE DEGROOT MD Ot R06.02 SHORTNESS OF BREATH 09/22/2019 LELE DGEROOT MD Ot Z77.22 CNTCT W AND EXPSR TO ENVIRON TOBACCO SMO 09/22/2019 LELE DEGROOT MD, Ot Z79.02 FDC (CURRENT) USE OF ANTITHROMBOTI 09/22/2019 LELE DEGROOT MD, Ot Z79.4 RESOLUTION EXPERT (CURRENT) USE OF INSULIN 09/22/2019 LELE DEGROOT MD, Ot Z79.52 RESOLUTION EXPERT (CURRENT) USE OF SYSTEMIC STER 09/22/2019 LELE DEGROOT MD, Ot Z79.82 RESOLUTION EXPERT (CURRENT) USE OF ASPIRIN 09/22/2019 LELE DEGROOT MD, Ot Z80.3 FAMILY HISTORY OF MALIGNANT NEOPLASM OF 09/22/2019 LELE DEGROOT MD Ot Z82.49 FAMILY HX OF ISCHEM HEART DIS AND OTH DI 09/22/2019 LELE DEGROOT MD Ot Z85.828 PERSONAL HISTORY OF OTHER MALIGNANT NEOP 09/22/2019 LELE DEGROOT MD Ot Z87.891 PERSONAL HISTORY OF NICOTINE DEPENDENCE 09/22/2019 LELE DEGROOT MD Ot Z88.5 ALLERGY STATUS TO NARCOTIC AGENT STATUS 09/22/2019 LELE DEGROOT MD Ot 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 ANGIOPLASTY IMPLANT 09/22/2019 LELE DEGROOT MD Ot 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 09/22/2019 JOYCE KAYE APRN Ot G47.33 OBSTRUCTIVE SLEEP APNEA (ADULT) (PEDIATR 09/22/2019 JOYCE KAYE APRN Ot J43.9 EMPHYSEMA, UNSPECIFIED 09/22/2019 JOYCE KAYE APRN Ot R91.1 SOLITARY PULMONARY NODULE 09/22/2019 JOYCE KAYE APRN Ot Z87.891 PERSONAL HISTORY OF NICOTINE DEPENDENCE 09/24/2019 LITA BARAKAT DO S Ot 786.09 RESPIRATORY ABNORM NEC 09/24/2019 LITA BARAKAT DO Ot 786.50 CHEST PAIN NOS 09/24/2019 LITA BARAKAT DO Ot V17.3 FAM HX-ISCHEM HEART DIS 09/24/2019 ORENDER DO, LITA S Ot 496 CHR AIRWAY OBSTRUCT NEC 09/24/2019 ILA JOHNSON, RAKEL Ramirez Ot 278. 00 OBESITY, NOS 09/24/2019 ILA JOHNSON, RAKEL Ramirez Ot 496 CHR AIRWAY OBSTRUCT NEC 09/24/2019 ILA JOHNSON, RAKEL Ramirez Ot 786. 09 RESPIRATORY ABNORM NEC 09/24/2019 JASMINNDER , LITA S Ot 496 09/24/2019 JASMINNDER DO, LITA S Ot V57.89 09/24/2019 [facility] L[facility] S Ot K11.6 MUCOCELE OF SALIVARY GLAND 09/24/2019 [facility], LITA S Ot R22.1 LOCALIZED SWELLING, MASS AND LUMP, NECK 09/24/2019 [facility], LITA S Ot M79.671 PAIN IN RIGHT FOOT 09/24/2019 JOYCE KAYE [employer] PARTS DELIVERY DRIVER Ot R91.1 SOLITARY PULMONARY NODULE 09/24/2019 JARAD COPPOLA [employer]S DELIVERY DRIVER Ot R06.02 SHORTNESS OF BREATH 09/24/2019 JARAD COPPOLA [employer]S DELIVERY DRIVER Ot R07.9 CHEST PAIN, UNSPECIFIED 09/24/2019 JARAD COPPOLA AUT[employer] PARTS DELIVERY DRIVER Ot R53.83 OTHER FATIGUE 09/24/2019 RANDI SHAFFER FACC, ALI FACP CCDS Ot I25.10 ATHSCL HEART DISEASE OF [place] CORONARY 09/24/2019 RANDI SHAFFER FACC, ALI FACP CCDS Ot R06.02 SHORTNESS OF BREATH 09/24/2019 RAKEL THORPE DO Ot J43. 8 OTHER EMPHYSEMA 09/24/2019 RAKEL THORPE DO Ot R06. 00 DYSPNEA, UNSPECIFIED 09/24/2019 RAKEL HTORPE DO Ot R91. 1 SOLITARY PULMONARY NODULE 09/24/2019 RAKEL THORPE DO Ot Z87.891 PERSONAL HISTORY OF NICOTINE DEPENDENCE 09/24/2019 JASMINNVER LITA JOHNSON S Ot D64.9 ANEMIA, UNSPECIFIED 09/24/2019 CASSIA THOMPSON Ot S49.92XA UNSP INJURY OF LEFT SHOULDER AND UPPER A 09/24/2019 CASSIA THOMPSON Ot W19.XXXA UNSPECIFIED FALL, INITIAL ENCOUNTER 09/24/2019 WILKINS-SÁNCHEZ, CASSIA M IT PROGRAM ENGAGEMENT DIRECTOR Ot Y99.8 OTHER EXTERNAL CAUSE STATUS 09/24/2019 JASMINNDER DO, LITA S Ot J84.9 INTERSTITIAL PULMONARY DISEASE, UNSPECIF 09/24/2019 JASMINNDER DO, LITA S Ot J44.9 CHRONIC OBSTRUCTIVE PULMONARY DISEASE, U 09/24/2019 KENDALL, HARRIS R AUT[employer] PARTS DELIVERY DRIVER Ot M25.561 PAIN IN RIGHT KNEE 09/24/2019 JASMINNDER DO, LITA S Ot R05 COUGH 09/24/2019 JASMINNDER DO, LITA S Ot R06.00 DYSPNEA, UNSPECIFIED 09/24/2019 JAY SHAFFER, SAMUEL Contreras Ot S42.025D NONDISP FX OF SHAFT OF L CLAVICLE, SUBS 09/24/2019 KENDALL, HARRIS R AUTO PARTS DELIVERY DRIVER Ot R06.00 DYSPNEA, UNSPECIFIED 09/24/2019 KENDALL, HARRIS R AUTO PARTS DELIVERY DRIVER Ot R42 DIZZINESS AND GIDDINESS 09/24/2019 [facility] DO, LITA S Ot K57.90 DVRTCLOS OF INTEST, PART UNSP, W/O PERF 09/24/2019 JASMINND DO, LITA S Ot K82.8 OTHER SPECIFIED DISEASES OF GALLBLADDER 09/24/2019 JASMINND DO, LITA S Ot N28.9 DISORDER OF KIDNEY AND URETER, UNSPECIFI 09/24/2019 JASMINNDER DOLITA S Ot R16.0 HEPATOMEGALY, NOT ELSEWHERE CLASSIFIED 09/24/2019 JASMINNDER DOJERMAINLITA S Ot I12.9 HYPERTENSIVE CHRONIC KIDNEY DISEASE W ST 09/24/2019 JASMINND DOLITA S Ot N18.9 CHRONIC KIDNEY DISEASE, UNSPECIFIED 09/24/2019 [facility], LITA S Ot N28.1 CYST OF KIDNEY, ACQUIRED 09/24/2019 STEVAN PATTON DO Ot 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 9 ANEMIA, UNSPECIFIED 09/24/2019 STEVAN PATTON DO Ot E11. 9 TYPE 2 DIABETES MELLITUS WITHOUT COMPLIC 09/24/2019 STEVAN PATTON DO Ot G47. 33 OBSTRUCTIVE SLEEP APNEA (ADULT) (PEDIATR 09/24/2019 STEVAN PATTON DO Ot I11. 0 HYPERTENSIVE HEART DISEASE WITH HEART FA 09/24/2019 PATTON STEVAN JOHNSON Ot I25. 10 ATHSCL HEART DISEASE OF [place] CORONARY 09/24/2019 PATTON STEVAN JOHNSON Ot I50. 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 9 EMPHYSEMA, UNSPECIFIED 09/24/2019 [facility] K57. 30 DVRTCLOS OF LG INT W/O PERFORATION OR AB 09/24/2019 PATTON DOSTEVAN Ot Z79. 02 RESOLUTION EXPERT (CURRENT) USE OF ANTITHROMBOTI 09/24/2019 PATTON DOSTEVAN Ot Z79. 4 FDC (CURRENT) USE OF INSULIN 09/24/2019 PATTON DOSTEVAN Ot Z79. 82 FDC (CURRENT) USE OF ASPIRIN 09/24/2019 PATTON DOSTEVAN Ot Z79.899 OTHER RESOLUTION EXPERT (CURRENT) DRUG THERAPY 09/24/2019 PATTON DOSTEVAN Ot Z82. 49 FAMILY HX OF ISCHEM HEART DIS AND OTH DI 09/24/2019 PATTON STEVAN JOHNSON Ot Z83. 3 FAMILY HISTORY OF DIABETES MELLITUS 09/24/2019 PATTON DOSTEVAN Ot Z87.891 PERSONAL HISTORY OF NICOTINE DEPENDENCE 09/24/2019 PATTON DOSTEVAN Ot Z88. 6 ALLERGY STATUS TO ANALGESIC AGENT STATUS 09/24/2019 PATTON DOSTEVAN Ot Z99. 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 09/24/2019 JOYCE KAYE APRN Ot G47.33 OBSTRUCTIVE SLEEP APNEA (ADULT) (PEDIATR 09/24/2019 JOYCE KAYE APRN Ot J43.9 EMPHYSEMA, UNSPECIFIED 09/24/2019 JOYCE KAYE APRN Ot Z87.891 PERSONAL HISTORY OF NICOTINE DEPENDENCE 09/24/2019 JOYCE KAYE APRN Ot G47.33 OBSTRUCTIVE SLEEP APNEA (ADULT) (PEDIATR 09/24/2019 JOYCE KAYE APRN Ot J43.9 EMPHYSEMA, UNSPECIFIED 09/24/2019 JOYCE KAYE APRN Ot R91.1 SOLITARY PULMONARY NODULE 09/24/2019 JOYCE KAYE APRN Ot Z87.891 PERSONAL HISTORY OF NICOTINE DEPENDENCE 09/24/2019 RAKEL THORPE DO Ot E04. 1 NONTOXIC SINGLE THYROID NODULE 09/24/2019 RAKEL THORPE DO Ot J43. 9 EMPHYSEMA, UNSPECIFIED 09/24/2019 ILA JOHNSON RAKEL M Ot Z87.891 PERSONAL HISTORY OF NICOTINE DEPENDENCE 09/24/2019 JOYCE KAYE APRN Ot G47.33 OBSTRUCTIVE SLEEP APNEA (ADULT) (PEDIATR 09/24/2019 JOYCE KAYE APRN Ot J43.9 EMPHYSEMA, UNSPECIFIED 09/24/2019 JOYCE KAYE APRN Ot Z87.891 PERSONAL HISTORY OF NICOTINE DEPENDENCE 09/24/2019 JOSE KATZ MD Ot E11. 9 TYPE 2 DIABETES MELLITUS WITHOUT COMPLIC 09/24/2019 JOSE KATZ MD Ot E78. 00 PURE HYPERCHOLESTEROLEMIA, UNSPECIFIED 09/24/2019 JOSE KATZ MD, Ot F41. 9 ANXIETY DISORDER, UNSPECIFIED 09/24/2019 JOSE KATZ MD Ot G47. 30 SLEEP APNEA, UNSPECIFIED 09/24/2019 JOSE KATZ MD Ot I10 ESSENTIAL (PRIMARY) HYPERTENSION 09/24/2019 JOSE KATZ MD, Ot I25. 10 ATHSCL HEART DISEASE OF [place] CORONARY 09/24/2019 JOSE KATZ MD, Ot I25. 2 OLD MYOCARDIAL INFARCTION 09/24/2019 JOSE KATZ MD, Ot J44. 9 CHRONIC OBSTRUCTIVE PULMONARY DISEASE, U 09/24/2019 JOSE KATZ MD Ot K21. 9 GASTRO-ESOPHAGEAL REFLUX DISEASE WITHOUT 09/24/2019 JOSE KATZ MD Ot R06. 02 SHORTNESS OF BREATH 09/24/2019 JOSE KATZ MD Ot R09. 02 HYPOXEMIA 09/24/2019 JOSE KATZ MD Ot Z77. 22 CNTCT W AND EXPSR TO ENVIRON TOBACCO SMO 09/24/2019 JOSE KATZ MD, Ot Z79. 02 RESOLUTION EXPERT (CURRENT) USE OF ANTITHROMBOTI 09/24/2019 JOSE KATZ MD Ot Z79. 4 RESOLUTION EXPERT (CURRENT) USE OF INSULIN 09/24/2019 JOSE KATZ MD, Ot Z79. 82 FDC (CURRENT) USE OF ASPIRIN 09/24/2019 GIANNA MD, JOSE J Ot Z80. 0 FAMILY HISTORY OF MALIGNANT NEOPLASM OF 09/24/2019 JOSE KATZ MD, Ot Z82. 49 FAMILY HX OF ISCHEM HEART DIS AND OTH DI 09/24/2019 JOSE KATZ MD, Ot Z85.828 PERSONAL HISTORY OF OTHER MALIGNANT NEOP 09/24/2019 JOSE KATZ MD, Ot Z87.891 PERSONAL HISTORY OF NICOTINE DEPENDENCE 09/24/2019 JOSE KATZ MD, Ot Z88. 5 ALLERGY STATUS TO NARCOTIC AGENT STATUS 09/24/2019 JOSE KATZ MD, Ot Z95. 9 PRESENCE OF CARDIAC AND VASCULAR IMPLANT 09/24/2019 JOSE KATZ MD, Ot Z99. 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 09/29/2019 JASMINNDER JERMAIN JOHNSONLINE S Ot 786.09 RESPIRATORY ABNORM NEC 09/29/2019 JASMINNDER DO, LITA S Ot 786.50 CHEST PAIN NOS 09/29/2019 JASMINNDER DO, LITA S Ot V17.3 FAM HX-ISCHEM HEART DIS 09/29/2019 ARMINER DOALIZELITA S Ot 496 CHR AIRWAY OBSTRUCT NEC 09/29/2019 RAKEL THORPE DO Ot 278. 00 OBESITY, NOS 09/29/2019 RAKEL THORPE DO Ot 496 CHR AIRWAY OBSTRUCT NEC 09/29/2019 RAKEL THORPE DO Ot 786. 09 RESPIRATORY ABNORM NEC 09/29/2019 JASMINNDER DO, LITA S Ot 496 09/29/2019 JASMINNDER DOALIZELITA S Ot V57.89 09/29/2019 JASMINNDER DOALIZELITA S Ot K11.6 MUCOCELE OF SALIVARY [place] 09/29/2019 JASMINNDER DO, LITA S Ot R22.1 LOCALIZED SWELLING, MASS AND LUMP, NECK 09/29/2019 JASMINNDER DO LITA S Ot M79.671 PAIN IN RIGHT FOOT 09/29/2019 JOYCE KAYE APRN Ot R91.1 SOLITARY PULMONARY NODULE 09/29/2019 JARAD COPPOLA AUTO PARTS DELIVERY DRIVER Ot R06.02 SHORTNESS OF BREATH 09/29/2019 JARAD COPPOLA AUTO PARTS DELIVERY DRIVER Ot R07.9 CHEST PAIN, UNSPECIFIED 09/29/2019 JARAD COPPOLA AUTO PARTS DELIVERY DRIVER Ot R53.83 OTHER FATIGUE 09/29/2019 RANDI SHAFFER [facility] CCDS Ot I25.10 ATHSCL HEART DISEASE OF [place] CORONARY 09/29/2019 RANDI SHAFFER [facility] CCDS Ot R06.02 SHORTNESS OF BREATH 09/29/2019 ILA JOHNSON RAKEL M Ot J43. 8 OTHER EMPHYSEMA 09/29/2019 ILA JOHNSON RAKEL Ashley Ot R06. 00 DYSPNEA, UNSPECIFIED 09/29/2019 ILA JOHNSON RAKEL Ramirez Ot R91. 1 SOLITARY PULMONARY NODULE 09/29/2019 ILA JOHNSON RAKEL Ramirez Ot Z87.891 PERSONAL HISTORY OF NICOTINE DEPENDENCE 09/29/2019 ARMIN LITA Ot D64.9 ANEMIA, UNSPECIFIED 09/29/2019 CASSIA THOMPSON Ot S49.92XA UNSP INJURY OF LEFT SHOULDER AND UPPER A 09/29/2019 CASSIA THOMPSON Ot W19.XXXA UNSPECIFIED FALL, INITIAL ENCOUNTER 09/29/2019 CASSIA THOMPSON Ot Y99.8 OTHER EXTERNAL CAUSE STATUS 09/29/2019 JASMINNDER DOLITA S Ot J84.9 INTERSTITIAL PULMONARY DISEASE, UNSPECIF 09/29/2019 ARMINER LITA JOHNSON S Ot J44.9 CHRONIC OBSTRUCTIVE PULMONARY DISEASE, U 09/29/2019 KENDALLHARRIS APRN Ot M25.561 PAIN IN RIGHT KNEE 09/29/2019 [facility] R05 COUGH 09/29/2019 ARMIN LITA JOHNSON S Ot R06.00 DYSPNEA, UNSPECIFIED 09/29/2019 JAY SHAFFER, SAMUEL Contreras Ot S42.025D NONDISP FX OF SHAFT OF L CLAVICLE, SUBS 09/29/2019 KENDALLHARRIS SHIN AUTO PARTS DELIVERY DRIVER Ot R06.00 DYSPNEA, UNSPECIFIED 09/29/2019 KENDALLHARRIS AUTO PARTS DELIVERY DRIVER Ot R42 DIZZINESS AND GIDDINESS 09/29/2019 JASMINNDER DOLITA S Ot K57.90 DVRTCLOS OF INTEST, PART UNSP, W/O PERF 09/29/2019 JASMINNDER LITA JOHNSON S Ot K82.8 OTHER SPECIFIED DISEASES OF GALLBLAD[place] 09/29/2019 [facility] DOL[facility] S Ot N28.9 DISORDER OF KIDNEY AND URETER, UNSPECIFI 09/29/2019 ORENDER DO, LITA S Ot R16.0 HEPATOMEGALY, NOT ELSEWHERE CLASSIFIED 09/29/2019 [facility], LITA S Ot I12.9 HYPERTENSIVE CHRONIC KIDNEY DISEASE W ST 09/29/2019 [facility], LITA S Ot N18.9 CHRONIC KIDNEY DISEASE, UNSPECIFIED 09/29/2019 ORENDER DO, LITA S Ot N28.1 CYST OF KIDNEY, ACQUIRED 09/29/2019 [facility] 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 9 ANEMIA, UNSPECIFIED 09/29/2019 PATTON DOSTEVAN Ot E11. 9 TYPE 2 DIABETES MELLITUS WITHOUT COMPLIC 09/29/2019 [facility] Ot G47. 33 OBSTRUCTIVE SLEEP APNEA (ADULT) (PEDIATR 09/29/2019 PATTON DOSTEVAN Ot I11. 0 HYPERTENSIVE HEART DISEASE WITH HEART FA 09/29/2019 PATTON DOSTEVAN Ot I25. 10 ATHSCL HEART DISEASE OF [place] CORONARY 09/29/2019 PATTON DOSTEVAN Ot I50. 9 HEART FAILURE, UNSPECIFIED 09/29/2019 PATTON STEVAN JOHNSON Ot I65. 23 OCCLUSION AND STENOSIS OF BILATERAL BAZZI 09/29/2019 [facility] Ot J43. 9 EMPHYSEMA, UNSPECIFIED 09/29/2019 [facility] Ot K57. 30 DVRTCLOS OF LG INT W/O PERFORATION OR AB 09/29/2019 STEVAN PATTON DO Ot Z79. 02 RESOLUTION EXPERT (CURRENT) USE OF ANTITHROMBOTI 09/29/2019 STEVAN PATTON DO Ot Z79. 4 FDC (CURRENT) USE OF INSULIN 09/29/2019 STEVAN PATTON DO Ot Z79. 82 RESOLUTION EXPERT (CURRENT) USE OF ASPIRIN 09/29/2019 STEVAN PATTON DO Ot Z79.899 OTHER RESOLUTION EXPERT (CURRENT) DRUG THERAPY 09/29/2019 PATTON DOSTEVAN Ot Z82. 49 FAMILY HX OF ISCHEM HEART DIS AND OTH DI 09/29/2019 STEVAN PATTON DO Ot Z83. 3 FAMILY HISTORY OF DIABETES MELLITUS 09/29/2019 STEVAN PATTON DO Ot Z87.891 PERSONAL HISTORY OF NICOTINE DEPENDENCE 09/29/2019 STEVAN PATTON DO Ot Z88. 6 ALLERGY STATUS TO ANALGESIC AGENT STATUS 09/29/2019 STEVAN PATTON DO Ot Z99. 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 09/29/2019 ALISTAIR KAYEINE Daja AUTO PARTS DELIVERY DRIVER Ot G47.33 OBSTRUCTIVE SLEEP APNEA (ADULT) (PEDIATR 09/29/2019 ALISTAIR KAYEINE Daja AUTO PARTS DELIVERY DRIVER Ot J43.9 EMPHYSEMA, UNSPECIFIED 09/29/2019 MIKKIALISTAIR PABLOINE E AUTO PARTS DELIVERY DRIVER Ot Z87.891 PERSONAL HISTORY OF NICOTINE DEPENDENCE 09/29/2019 ALISTAIR KAYEINE Daja AUTO PARTS DELIVERY DRIVER Ot G47.33 OBSTRUCTIVE SLEEP APNEA (ADULT) (PEDIATR 09/29/2019 ALISTAIR KAYEINE Daja AUTO PARTS DELIVERY DRIVER Ot J43.9 EMPHYSEMA, UNSPECIFIED 09/29/2019 ALISTAIR KAYEINE E AUTO PARTS DELIVERY DRIVER Ot R91.1 SOLITARY PULMONARY NODULE 09/29/2019 ALISTAIR KAYEINE Daja AUTO PARTS DELIVERY DRIVER Ot Z87.891 PERSONAL HISTORY OF NICOTINE DEPENDENCE 09/29/2019 RAKEL THORPE DO Ot E04. 1 NONTOXIC SINGLE THYROID NODULE 09/29/2019 RAKEL THORPE DO Ot J43. 9 EMPHYSEMA, UNSPECIFIED 09/29/2019 RAKEL THORPE DO Ot Z87.891 PERSONAL HISTORY OF NICOTINE DEPENDENCE 09/29/2019 ALISTAIR KAYEINE Daja AUTO PARTS DELIVERY DRIVER Ot G47.33 OBSTRUCTIVE SLEEP APNEA (ADULT) (PEDIATR 09/29/2019 JOYCE KAYE AUTO PARTS DELIVERY DRIVER Ot J43.9 EMPHYSEMA, UNSPECIFIED 09/29/2019 JOYCE KAYE AUTO PARTS DELIVERY DRIVER Ot Z87.891 PERSONAL HISTORY OF NICOTINE DEPENDENCE 09/30/2019 JOSE KATZ MD Ot E11. 9 TYPE 2 DIABETES MELLITUS WITHOUT COMPLIC 09/30/2019 JOSE KATZ MD Ot E78. 00 PURE HYPERCHOLESTEROLEMIA, UNSPECIFIED 09/30/2019 JOSE KATZ MD Ot F41. 9 ANXIETY DISORDER, UNSPECIFIED 09/30/2019 JOSE KATZ MD Ot G47. 30 SLEEP APNEA, UNSPECIFIED 09/30/2019 JOSE KATZ MD Ot I10 ESSENTIAL (PRIMARY) HYPERTENSION 09/30/2019 JOSE KATZ MD Ot I25. 10 ATHSCL HEART DISEASE OF [place] CORONARY 09/30/2019 JOSE KATZ MD, Ot I25. 2 OLD MYOCARDIAL INFARCTION 09/30/2019 JOSE KATZ MD, Ot J44. 9 CHRONIC OBSTRUCTIVE PULMONARY DISEASE, U 09/30/2019 JOSE KATZ MD, Ot K21. 9 GASTRO-ESOPHAGEAL REFLUX DISEASE WITHOUT 09/30/2019 JOSE KATZ MD, Ot R06. 02 SHORTNESS OF BREATH 09/30/2019 JOSE KATZ MD, Ot R09. 02 HYPOXEMIA 09/30/2019 JOSE KATZ MD, Ot Z77. 22 CNTCT W AND EXPSR TO ENVIRON TOBACCO SMO 09/30/2019 JOSE KATZ MD, Ot Z79. 02 RESOLUTION EXPERT (CURRENT) USE OF ANTITHROMBOTI 09/30/2019 JOSE KATZ MD, Ot Z79. 4 RESOLUTION EXPERT (CURRENT) USE OF INSULIN 09/30/2019 JOSE KATZ MD, Ot Z79. 82 FDC (CURRENT) USE OF ASPIRIN 09/30/2019 JOSE KATZ MD, Ot Z80. 0 FAMILY HISTORY OF MALIGNANT NEOPLASM OF 09/30/2019 JOSE KATZ MD, Ot Z82. 49 FAMILY HX OF ISCHEM HEART DIS AND OTH DI 09/30/2019 JOSE KATZ MD, Ot Z85.828 PERSONAL HISTORY OF OTHER MALIGNANT NEOP 09/30/2019 JOSE KATZ MD, Ot Z87.891 PERSONAL HISTORY OF NICOTINE DEPENDENCE 09/30/2019 JOSE KATZ MD, Ot Z88. 5 ALLERGY STATUS TO NARCOTIC AGENT STATUS 09/30/2019 JOSE KATZ MD, Ot Z95. 9 PRESENCE OF CARDIAC AND VASCULAR IMPLANT 09/30/2019 JOSE KATZ MD, Ot Z99. 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 10/02/2019 JOSE KATZ MD, Ot E11. 9 TYPE 2 DIABETES MELLITUS WITHOUT COMPLIC 10/02/2019 JOSE KATZ MD, Ot E78. 00 PURE HYPERCHOLESTEROLEMIA, UNSPECIFIED 10/02/2019 JOSE KATZ MD, Ot F41. 9 ANXIETY DISORDER, UNSPECIFIED 10/02/2019 JOSE KATZ MD, Ot G47. 30 SLEEP APNEA, UNSPECIFIED 10/02/2019 JOSE AKTZ MD, Ot I10 ESSENTIAL (PRIMARY) HYPERTENSION 10/02/2019 JOSE KAZT MD, Ot I25. 10 ATHSCL HEART DISEASE OF [place] CORONARY 10/02/2019 JOSE KATZ MD, Ot I25. 2 OLD MYOCARDIAL INFARCTION 10/02/2019 JOSE KATZ MD, Ot J44. 9 CHRONIC OBSTRUCTIVE PULMONARY DISEASE, U 10/02/2019 JOSE KATZ MD, Ot K21. 9 GASTRO-ESOPHAGEAL REFLUX DISEASE WITHOUT 10/02/2019 JOSE KATZ MD, Ot R06. 02 SHORTNESS OF BREATH 10/02/2019 JOSE KATZ MD, Ot R09. 02 HYPOXEMIA 10/02/2019 JOSE KATZ MD, Ot Z77. 22 CNTCT W AND EXPSR TO ENVIRON TOBACCO SMO 10/02/2019 JOSE KATZ MD, Ot Z79. 02 RESOLUTION EXPERT (CURRENT) USE OF ANTITHROMBOTI 10/02/2019 JOSE KATZ MD, Ot Z79. 4 RESOLUTION EXPERT (CURRENT) USE OF INSULIN 10/02/2019 JOSE KATZ MD, Ot Z79. 82 RESOLUTION EXPERT (CURRENT) USE OF ASPIRIN 10/02/2019 JOSE KATZ MD, Ot Z80. 0 FAMILY HISTORY OF MALIGNANT NEOPLASM OF 10/02/2019 JOSE KATZ MD, Ot Z82. 49 FAMILY HX OF ISCHEM HEART DIS AND OTH DI 10/02/2019 JOSE KATZ MD, Ot Z85.828 PERSONAL HISTORY OF OTHER MALIGNANT NEOP 10/02/2019 JOSE KATZ MD, Ot Z87.891 PERSONAL HISTORY OF NICOTINE DEPENDENCE 10/02/2019 JOSE KATZ MD, Ot Z88. 5 ALLERGY STATUS TO NARCOTIC AGENT STATUS 10/02/2019 JOSE KATZ MD, Ot Z95. 9 PRESENCE OF CARDIAC AND VASCULAR IMPLANT 10/02/2019 JOSE KATZ MD, Ot Z99. 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 10/03/2019 RAKEL THORPE DO Ot E04. 1 NONTOXIC SINGLE THYROID NODULE 10/03/2019 RAKEL THORPE DO Ot J43. 9 EMPHYSEMA, UNSPECIFIED 10/03/2019 RAKEL THORPE DO, Ot Z87.891 PERSONAL HISTORY OF NICOTINE DEPENDENCE 10/08/2019 LITA BARAKAT DO Ot 786.09 RESPIRATORY ABNORM NEC 10/08/2019 ORENDER DO, LITA S Ot 786.50 CHEST PAIN NOS 10/08/2019 ORENDER DO, LITA S Ot V17.3 FAM HX-ISCHEM HEART DIS 10/08/2019 JASMINNDER DO, LITA S Ot 496 CHR AIRWAY OBSTRUCT NEC 10/08/2019 ILA JOHNSON, RAKEL Ramirez Ot 278. 00 OBESITY, NOS 10/08/2019 ILA DO, RAKEL M Ot 496 CHR AIRWAY OBSTRUCT NEC 10/08/2019 ILA JOHNSON, RAKEL Ramirez Ot 786. 09 RESPIRATORY ABNORM NEC 10/08/2019 ORENDER DO, LITA S Ot 496 10/08/2019 [facility], LITA S Ot V57.89 10/08/2019 ORENDER DO, LITA S Ot K11.6 MUCOCELE OF SALIVARY GL[place] 10/08/2019 ORENDER DO, LITA S Ot R22.1 LOCALIZED SWELLING, MASS AND LUMP, NECK 10/08/2019 [facility], LITA S Ot M79.671 PAIN IN RIGHT FOOT 10/08/2019 JOYCE KAYE [employer] DELIVERY DRIVER Ot R91.1 SOLITARY PULMONARY NODULE 10/08/2019 JARAD COPPOLA [employer] DELIVERY DRIVER Ot R06.02 SHORTNESS OF BREATH 10/08/2019 JARAD COPPOLA [employer] DELIVERY DRIVER Ot R07.9 CHEST PAIN, UNSPECIFIED 10/08/2019 JARAD COPPOLA [employer] DELIVERY DRIVER Ot R53.83 OTHER FATIGUE 10/08/2019 RANDI SHAFFER FAC, ALI FACP CCDS Ot I25.10 ATHSCL HEART DISEASE OF [place] CORONARY 10/08/2019 RANDI SHAFFER FAC, ALI FACP CCDS Ot R06.02 SHORTNESS OF BREATH 10/08/2019 RAKEL THORPE DO Ot J43. 8 OTHER EMPHYSEMA 10/08/2019 RAKEL THORPE DO Ot R06. 00 DYSPNEA, UNSPECIFIED 10/08/2019 RAKEL THORPE DO Ot R91. 1 SOLITARY PULMONARY NODULE 10/08/2019 RAKEL THORPE DO Ot Z87.891 PERSONAL HISTORY OF NICOTINE DEPENDENCE 10/08/2019 [facility], LITA S Ot D64.9 ANEMIA, UNSPECIFIED 10/08/2019 CASSIA THOMPSON IT PROGRAM ENGAGEMENT DIRECTOR Ot S49.92XA UNSP INJURY OF LEFT SHOULDER AND UPPER A 10/08/2019 CASSIA THOMPSON Ot W19.XXXA UNSPECIFIED FALL, INITIAL ENCOUNTER 10/08/2019 WILKINSLUIS MIGUEL CASSIAKYLEE RUSSELL Ot Y99.8 OTHER EXTERNAL CAUSE STATUS 10/08/2019 ORENDER DO, LITA S Ot J84.9 INTERSTITIAL PULMONARY DISEASE, UNSPECIF 10/08/2019 ORENDER DO, LITA S Ot J44.9 CHRONIC OBSTRUCTIVE PULMONARY DISEASE, U 10/08/2019 KENDALL, HARRIS R [employer] DELIVERY DRIVER Ot M25.561 PAIN IN RIGHT KNEE 10/08/2019 ORENDER DO, LITA S Ot R05 COUGH 10/08/2019 ORENDER DO, LITA S Ot R06.00 DYSPNEA, UNSPECIFIED 10/08/2019 JAY SHAFFER, SAMUEL Contreras Ot S42.025D NONDISP FX OF SHAFT OF L CLAVICLE, SUBS 10/08/2019 KENDALL, HARRIS R [employer] DELIVERY DRIVER Ot R06.00 DYSPNEA, UNSPECIFIED 10/08/2019 KENDALL, HARRIS R [employer] DELIVERY DRIVER Ot R42 DIZZINESS AND GIDDINESS 10/08/2019 ORENDER DO, LITA S Ot K57.90 DVRTCLOS OF INTEST, PART UNSP, W/O PERF 10/08/2019 ORENDER DO, LITA S Ot K82.8 OTHER SPECIFIED DISEASES OF [place] 10/08/2019 ORENDER DO, LITA S Ot N28.9 DISORDER OF KIDNEY AND URETER, UNSPECIFI 10/08/2019 ORENDER DO, LITA S Ot R16.0 HEPATOMEGALY, NOT ELSEWHERE CLASSIFIED 10/08/2019 ORENDER DO, LITA S Ot I12.9 HYPERTENSIVE CHRONIC KIDNEY DISEASE W ST 10/08/2019 ORENDER DO, LITA S Ot N18.9 CHRONIC KIDNEY DISEASE, UNSPECIFIED 10/08/2019 ORENDER DO, LITA S Ot N28.1 CYST OF KIDNEY, ACQUIRED 10/08/2019 STEVAN PATTON DO Ot 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 9 ANEMIA, UNSPECIFIED 10/08/2019 STEVAN PATTON DO Ot E11. 9 TYPE 2 DIABETES MELLITUS WITHOUT COMPLIC 10/08/2019 ABDI JOHNSON STEVAN D Ot G47. 33 OBSTRUCTIVE SLEEP APNEA (ADULT) (PEDIATR 10/08/2019 [facility]. 0 HYPERTENSIVE HEART DISEASE WITH HEART FA 10/08/2019 [facility] Ot I25. 10 ATHSCL HEART DISEASE OF [place] CORONARY 10/08/2019 [facility] Ot I50. 9 HEART FAILURE, UNSPECIFIED 10/08/2019 [facility] Ot I65. 23 OCCLUSION AND STENOSIS OF BILATERAL BAZZI 10/08/2019 [facility] Ot J43. 9 EMPHYSEMA, UNSPECIFIED 10/08/2019 [facility] Ot K57. 30 DVRTCLOS OF LG INT W/O PERFORATION OR AB 10/08/2019 PATTON DOSTEVAN Ot Z79. 02 RESOLUTION EXPERT (CURRENT) USE OF ANTITHROMBOTI 10/08/2019 [facility] Z79. 4 FDC (CURRENT) USE OF INSULIN 10/08/2019 PATTON STEVAN Ot Z79. 82 FDC (CURRENT) USE OF ASPIRIN 10/08/2019 [facility] Ot Z79.899 OTHER FDC (CURRENT) DRUG THERAPY 10/08/2019 [facility] Ot Z82. 49 FAMILY HX OF ISCHEM HEART DIS AND OTH DI 10/08/2019 PATTON DOSTEVAN Ot Z83. 3 FAMILY HISTORY OF DIABETES MELLITUS 10/08/2019 [facility] Ot Z87.891 PERSONAL HISTORY OF NICOTINE DEPENDENCE 10/08/2019 PATTON DOSTEVAN Ot Z88. 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 1 NONTOXIC SINGLE THYROID NODULE 10/08/2019 ILA JOHNSON RAKEL M Ot J43. 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 9 ANEMIA, UNSPECIFIED 10/08/2019 PATTON STEVAN JOHNSON Ot E11. 9 TYPE 2 DIABETES MELLITUS WITHOUT COMPLIC 10/08/2019 PATTON STEVAN JOHNSON Ot G47. 33 OBSTRUCTIVE SLEEP APNEA (ADULT) (PEDIATR 10/08/2019 PATTON STEVAN JOHNSON Ot I11. 0 HYPERTENSIVE HEART DISEASE WITH HEART FA 10/08/2019 PATTON STEVAN JOHNSON Ot I25. 10 ATHSCL HEART DISEASE OF [place] CORONARY 10/08/2019 PATTON STEVAN JOHNSON Ot I50. 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 9 EMPHYSEMA, UNSPECIFIED 10/08/2019 PATTON STEVAN JOHNSON Ot K57. 30 DVRTCLOS OF LG INT W/O PERFORATION OR AB 10/08/2019 STEVAN PATTON DO Ot Z79. 02 FDC (CURRENT) USE OF ANTITHROMBOTI 10/08/2019 PATTON STEVAN JOHNSON Ot Z79. 4 FDC (CURRENT) USE OF INSULIN 10/08/2019 STEVAN PATTON DO Ot Z79. 82 RESOLUTION EXPERT (CURRENT) USE OF ASPIRIN 10/08/2019 [facility] Z79.899 OTHER RESOLUTION EXPERT (CURRENT) DRUG THERAPY 10/08/2019 [facility] Ot Z82. 49 FAMILY HX OF I[place]HE[place] HEART DIS AND OTH DI 10/08/2019 [facility] Z83. 3 FAMILY HISTORY OF DIABETES MELLITUS 10/08/2019 [facility] Ot Z87.891 PERSONAL HISTORY OF NICOTINE DEPENDENCE 10/08/2019 [facility] Z88. 6 ALLERGY STATUS TO ANALGESIC AGENT STATUS 10/08/2019 [facility] Z99. 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 10/09/2019 [facility], LITA S Ot 786.09 RESPIRATORY ABNORM NEC 10/09/2019 [facility], LITA S Ot 786.50 CHEST PAIN NOS 10/09/2019 [facility], LITA S Ot V17.3 FAM HX-ISCHEM HEART DIS 10/09/2019 [facility], LITA S Ot 496 CHR AIRWAY OBSTRUCT NEC 10/09/2019 RAKEL THORPE DO Ot 278. 00 OBESITY, NOS 10/09/2019 ILA , RAKEL M Ot 496 CHR AIRWAY OBSTRUCT NEC 10/09/2019 RAKEL THORPE DO Ot 786. 09 RESPIRATORY ABNORM NEC 10/09/2019 [facility], LITA S Ot 496 10/09/2019 [facility], LITA S Ot V57.89 10/09/2019 [facility], LITA S Ot K11.6 MUCOCELE OF SALIVARY GLAND 10/09/2019 [facility], LITA S Ot R22.1 LOCALIZED SWELLING, MASS AND LUMP, NECK 10/09/2019 [facility], LITA S Ot M79.671 PAIN IN RIGHT FOOT 10/09/2019 JOYCE KAYE [employer] DELIVERY DRIVER Ot R91.1 SOLITARY PULMONARY NODULE 10/09/2019 JARAD COPPOLA [employer] DELIVERY DRIVER Ot R06.02 SHORTNESS OF BREATH 10/09/2019 JARAD COPPOLA [employer] DELIVERY DRIVER Ot R07.9 CHEST PAIN, UNSPECIFIED 10/09/2019 JARAD COPPOLA [employer]S DELIVERY DRIVER Ot R53.83 OTHER FATIGUE 10/09/2019 RANDI SHAFFER FACC, TARI KELLEYP CCDS Ot I25.10 ATHSCL HEART DISEASE OF [place] CORONARY 10/09/2019 RANDI SHAFFER [facility] CCDS Ot R06.02 SHORTNESS OF BREATH 10/09/2019 RAKEL THORPE DO Ot J43. 8 OTHER EMPHYSEMA 10/09/2019 RAKEL THORPE DO Ot R06. 00 DYSPNEA, UNSPECIFIED 10/09/2019 RAKEL THORPE DO Ot R91. 1 SOLITARY PULMONARY NODULE 10/09/2019 RAKEL THORPE DO Ot Z87.891 PERSONAL HISTORY OF NICOTINE DEPENDENCE 10/09/2019 JASMINNDER LITA S Ot D64.9 ANEMIA, UNSPECIFIED 10/09/2019 CASSIA THOMPSON Ot S49.92XA UNSP INJURY OF LEFT SHOULDER AND UPPER A 10/09/2019 CASSIA THOMPSON Ot W19.XXXA UNSPECIFIED FALL, INITIAL ENCOUNTER 10/09/2019 CASSIA THOMPSON Ot Y99.8 OTHER EXTERNAL CAUSE STATUS 10/09/2019 JASMINNDER DO, LITA S Ot J84.9 INTERSTITIAL PULMONARY DISEASE, UNSPECIF 10/09/2019 JASMINNDER LITA S Ot J44.9 CHRONIC OBSTRUCTIVE PULMONARY DISEASE, U 10/09/2019 KENDALLHARRIS APRN Ot M25.561 PAIN IN RIGHT KNEE [facility] S Ot R05 COUGH 10/09/2019 ARMIN LITA JOHNSON S Ot R06.00 DYSPNEA, UNSPECIFIED 10/09/2019 JAY SHAFFER, SAMUEL Contreras Ot S42.025D NONDISP FX OF SHAFT OF L CLAVICLE, SUBS 10/09/2019 KENDALLHARRIS [employer] PARTS DELIVERY DRIVER Ot R06.00 DYSPNEA, UNSPECIFIED 10/09/2019 KENDALLHARRIS [employer]O PARTS DELIVERY DRIVER Ot R42 DIZZINESS AND GIDDINESS 10/09/2019 JASMINND DOLITA S Ot K57.90 DVRTCLOS OF INTEST, PART UNSP, W/O PERF 10/09/2019 JASMINNDER LITA JOHNSON S Ot K82.8 OTHER SPECIFIED DISEASES OF [place] 10/09/2019 JASMINNDER DOLITA S Ot N28.9 DISORDER OF KIDNEY AND URETER, UNSPECIFI 10/09/2019 [facility], L[facility] S Ot R16.0 HEPATOMEGALY, NOT ELSEWHERE CLASSIFIED 10/09/2019 [facility], LITA S Ot I12.9 HYPERTENSIVE CHRONIC KIDNEY DISEASE W ST 10/09/2019 [facility], LITA S Ot N18.9 CHRONIC KIDNEY DISEASE, UNSPECIFIED 10/09/2019 [facility], LITA S Ot N28.1 CYST OF KIDNEY, ACQUIRED 10/09/2019 [facility] 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 9 ANEMIA, UNSPECIFIED 10/09/2019 PATTON DOSTEVAN Ot E11. 9 TYPE 2 DIABETES MELLITUS WITHOUT COMPLIC 10/09/2019 PATTON DOSTEVAN Ot G47. 33 OBSTRUCTIVE SLEEP APNEA (ADULT) (PEDIATR 10/09/2019 [facility] I11. 0 HYPERTENSIVE HEART DISEASE WITH HEART FA 10/09/2019 PATTON DOSTEVAN Ot I25. 10 ATHSCL HEART DISEASE OF [place] CORONARY 10/09/2019 [facility] I50. 9 HEART FAILURE, UNSPECIFIED 10/09/2019 PATTON STEVAN JOHNSON Ot I65. 23 OCCLUSION AND STENOSIS OF BILATERAL BAZZI 10/09/2019 [facility] Ot J43. 9 EMPHYSEMA, UNSPECIFIED 10/09/2019 [facility] Ot K57. 30 DVRTCLOS OF LG INT W/O PERFORATION OR AB 10/09/2019 STEVAN PATTON DO Ot Z79. 02 FDC (CURRENT) USE OF ANTITHROMBOTI 10/09/2019 PATTONSTEVAN CARR DO Ot Z79. 4 RESOLUTION EXPERT (CURRENT) USE OF INSULIN 10/09/2019 STEVAN PATTON DO Ot Z79. 82 FDC (CURRENT) USE OF ASPIRIN 10/09/2019 STEVAN PATTON DO Ot Z79.899 OTHER FDC (CURRENT) DRUG THERAPY 10/09/2019 PATTON DOSTEVAN Ot Z82. 49 FAMILY HX OF I[place]HE[place] HEART DIS AND OTH DI 10/09/2019 STEVAN PATTON DO Ot Z83. 3 FAMILY HISTORY OF DIABETES MELLITUS 10/09/2019 STEVAN PATTON DO Ot Z87.891 PERSONAL HISTORY OF NICOTINE DEPENDENCE 10/09/2019 STEVAN PATTON DO Ot Z88. 6 ALLERGY STATUS TO ANALGESIC AGENT STATUS 10/09/2019 STEVAN PATTON DO Ot Z99. 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 10/09/2019 JOYCE KAYE APRN Ot G47.33 OBSTRUCTIVE SLEEP APNEA (ADULT) (PEDIATR 10/09/2019 JOYCE KAYE [employer] DELIVERY DRIVER Ot J43.9 EMPHYSEMA, UNSPECIFIED 10/09/2019 JOYCE KAYE [employer] DELIVERY DRIVER Ot Z87.891 PERSONAL HISTORY OF NICOTINE DEPENDENCE 10/09/2019 JOYCE KAYE [employer] PARTS DELIVERY DRIVER Ot G47.33 OBSTRUCTIVE SLEEP APNEA (ADULT) (PEDIATR 10/09/2019 JOYCE KAYE APRN Ot J43.9 EMPHYSEMA, UNSPECIFIED 10/09/2019 JOYCE KAYE APRN Ot R91.1 SOLITARY PULMONARY NODULE 10/09/2019 JOYCE KAYE APRN Ot Z87.891 PERSONAL HISTORY OF NICOTINE DEPENDENCE 10/09/2019 RAKEL THORPE DO Ot E04. 1 NONTOXIC SINGLE THYROID NODULE 10/09/2019 RAKEL THORPE DO Ot J43. 9 EMPHYSEMA, UNSPECIFIED 10/09/2019 RAKEL THORPE DO Ot Z87.891 PERSONAL HISTORY OF NICOTINE DEPENDENCE 10/09/2019 JOYCE KAYE [employer] DELIVERY DRIVER Ot G47.33 OBSTRUCTIVE SLEEP APNEA (ADULT) (PEDIATR 10/09/2019 JOYCE KAYE APRN Ot J43.9 EMPHYSEMA, UNSPECIFIED 10/09/2019 JOYCE KAYE APRN Ot Z87.891 PERSONAL HISTORY OF NICOTINE DEPENDENCE 10/17/2019 JERMAIN BARAKAT DOLINE S Ot 786.09 RESPIRATORY ABNORM NEC 10/17/2019 JERMAIN BARAKAT DOLINE S Ot 786.50 CHEST PAIN NOS 10/17/2019 LITA BARAKAT DO S Ot V17.3 FAM HX-ISCHEM HEART DIS 10/17/2019 LITA BARAKAT DO S Ot 496 CHR AIRWAY OBSTRUCT NEC 10/17/2019 RAKEL THORPE DO Ot 278. 00 OBESITY, NOS 10/17/2019 RAKEL THORPE DO Ot 496 CHR AIRWAY OBSTRUCT NEC 10/17/2019 RAKEL THORPE DO Ot 786. 09 RESPIRATORY ABNORM NEC 10/17/2019 ARMINER , LITA S Ot 496 10/17/2019 ARMINER , LITA S Ot V57.89 10/17/2019 JASMINNDER , LITA S Ot K11.6 MUCOCELE OF SALIVARY GLAND 10/17/2019 JASMINNVER , LITA S Ot R22.1 LOCALIZED SWELLING, MASS AND LUMP, NECK 10/17/2019 JASMINNVER , LITA S Ot M79.671 PAIN IN RIGHT FOOT 10/17/2019 JOYCE KAYE [employer] DELIVERY DRIVER Ot R91.1 SOLITARY PULMONARY NODULE 10/17/2019 JARAD COPPOLA [employer] DELIVERY DRIVER Ot R06.02 SHORTNESS OF BREATH 10/17/2019 JARAD COPPOLA [employer] DELIVERY DRIVER Ot R07.9 CHEST PAIN, UNSPECIFIED 10/17/2019 JARAD COPPOLA [employer] DELIVERY DRIVER Ot R53.83 OTHER FATIGUE 10/17/2019 RANDI SHAFFER FACC, ALI FACP CCDS Ot I25.10 ATHSCL HEART DISEASE OF [place] CORONARY 10/17/2019 RANDI SHAFFER FACC, ALI FACP CCDS Ot R06.02 SHORTNESS OF BREATH 10/17/2019 RAKEL THORPE DO Ot J43. 8 OTHER EMPHYSEMA 10/17/2019 RAKEL THORPE DO Ot R06. 00 DYSPNEA, UNSPECIFIED 10/17/2019 RAKEL THORPE DO Ot R91. 1 SOLITARY PULMONARY NODULE 10/17/2019 RAKEL THORPE DO Ot Z87.891 PERSONAL HISTORY OF NICOTINE DEPENDENCE 10/17/2019 ARMIN LITA JOHNSON S Ot D64.9 ANEMIA, UNSPECIFIED 10/17/2019 CASSIA THOMPSON Ot S49.92XA UNSP INJURY OF LEFT SHOULDER AND UPPER A 10/17/2019 CASSIA THOMPSON Ot W19.XXXA UNSPECIFIED FALL, INITIAL ENCOUNTER 10/17/2019 CASSIA THOMPSON Ot Y99.8 OTHER EXTERNAL CAUSE STATUS 10/17/2019 ARMINER LITA S Ot J84.9 INTERSTITIAL PULMONARY DISEASE, UNSPECIF 10/17/2019 ARMIN LITA JOHNSON Ot J44.9 CHRONIC OBSTRUCTIVE PULMONARY DISEASE, U 10/17/2019 KENDALL, HARRIS R [employer] DELIVERY DRIVER Ot M25.561 PAIN IN RIGHT KNEE 10/17/2019 [facility] LITA S Ot R05 COUGH 10/17/2019 [facility], LITA S Ot R06.00 DYSPNEA, UNSPECIFIED 10/17/2019 JAY SHAFFER, SAMUEL Contreras Ot S42.025D NONDISP FX OF SHAFT OF L CLAVICLE, SUBS 10/17/2019 KENDALL, HARRIS R [employer] DELIVERY DRIVER Ot R06.00 DYSPNEA, UNSPECIFIED 10/17/2019 KENDALL, HARRIS R [employer] DELIVERY DRIVER Ot R42 DIZZINESS AND GIDDINESS 10/17/2019 [facility], LITA S Ot K57.90 DVRTCLOS OF INTEST, PART UNSP, W/O PERF 10/17/2019 [facility], LITA S Ot K82.8 OTHER SPECIFIED DISEASES OF [place] 10/17/2019 [facility], LITA S Ot N28.9 DISORDER OF KIDNEY AND URETER, UNSPECIFI 10/17/2019 [facility], LITA S Ot R16.0 HEPATOMEGALY, NOT ELSEWHERE CLASSIFIED 10/17/2019 [facility], LITA S Ot I12.9 HYPERTENSIVE CHRONIC KIDNEY DISEASE W ST 10/17/2019 [facility] DO, LITA S Ot N18.9 CHRONIC KIDNEY DISEASE, UNSPECIFIED 10/17/2019 [facility] DO, LITA S Ot N28.1 CYST OF KIDNEY, ACQUIRED 10/17/2019 PATTON STEVAN JOHNSON Ot 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 9 ANEMIA, UNSPECIFIED 10/17/2019 PATTON STEVAN JOHNSON Ot E11. 9 TYPE 2 DIABETES MELLITUS WITHOUT COMPLIC 10/17/2019 STEVAN PATTON DO Ot G47. 33 OBSTRUCTIVE SLEEP APNEA (ADULT) (PEDIATR 10/17/2019 STEVAN PATTON DO Ot I11. 0 HYPERTENSIVE HEART DISEASE WITH HEART FA 10/17/2019 STEVAN PATTON DO Ot I25. 10 ATHSCL HEART DISEASE OF [place] CORONARY 10/17/2019 STEVAN PATTNO DO Ot I50. 9 HEART FAILURE, UNSPECIFIED 10/17/2019 JAZMIN PATTON DOTT D Ot I65. 23 OCCLUSION AND STENOSIS OF BILATERAL BAZZI 10/17/2019 [facility] J43. 9 EMPHYSEMA, UNSPECIFIED 10/17/2019 [facility] Ot K57. 30 DVRTCLOS OF LG INT W/O PERFORATION OR AB 10/17/2019 [facility] Ot Z79. 02 FDC (CURRENT) USE OF ANTITHROMBOTI 10/17/2019 PATTON DOSTEVAN Ot Z79. 4 FDC (CURRENT) USE OF INSULIN 10/17/2019 [facility] Ot Z79. 82 FDC (CURRENT) USE OF ASPIRIN 10/17/2019 PATTON DOSTEVAN Ot Z79.899 OTHER FDC (CURRENT) DRUG THERAPY 10/17/2019 [facility] Ot Z82. 49 FAMILY HX OF I[place]HE[place] HEART DIS AND OTH DI 10/17/2019 [facility] Z83. 3 FAMILY HISTORY OF DIABETES MELLITUS 10/17/2019 PATTON DOSTEVAN Ot Z87.891 PERSONAL HISTORY OF NICOTINE DEPENDENCE 10/17/2019 [facility] Z88. 6 ALLERGY STATUS TO ANALGESIC AGENT STATUS 10/17/2019 PATTON DOSTEVAN Ot Z99. 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 1 NONTOXIC SINGLE THYROID NODULE 10/17/2019 RAKEL THORPE DO Ot J43. 9 EMPHYSEMA, UNSPECIFIED 10/17/2019 ILA JOHNSON RAKEL Ashley Ot Z87.891 PERSONAL HISTORY OF NICOTINE DEPENDENCE 10/17/2019 JOYCE KAYE APRN Ot G47.33 OBSTRUCTIVE SLEEP APNEA (ADULT) (PEDIATR 10/17/2019 JOYCE KAYE APRN Ot J43.9 EMPHYSEMA, UNSPECIFIED 10/17/2019 JOYCE KAYE APRN Ot Z87.891 PERSONAL HISTORY OF NICOTINE DEPENDENCE 10/20/2019 TATA HERMOSILLO APRN Ot E11 .9 TYPE 2 DIABETES MELLITUS WITHOUT COMPLIC 10/20/2019 TATA HERMOSILLO APRN Ot E78.00 PURE HYPERCHOLESTEROLEMIA, UNSPECIFIED 10/20/2019 TATA HERMOSILLO APRN Ot F41 .9 ANXIETY DISORDER, UNSPECIFIED 10/20/2019 TATA HERMOSILLO APRN Ot G47.30 SLEEP APNEA, UNSPECIFIED 10/20/2019 TATA HERMOSILLO APRN Ot I10 ESSENTIAL (PRIMARY) HYPERTENSION 10/20/2019 TATA HERMOSILLO APRN Ot I25.10 ATHSCL HEART DISEASE OF [place] CORONARY 10/20/2019 TATA HERMOSILLO APRN Ot I25 .2 OLD MYOCARDIAL INFARCTION 10/20/2019 TATA HERMOSILLO APRN Ot J44 .9 CHRONIC OBSTRUCTIVE PULMONARY DISEASE, U 10/20/2019 TATA HERMOSILLO APRN Ot K21 .9 GASTRO-ESOPHAGEAL REFLUX DISEASE WITHOUT 10/20/2019 TATA HERMOSILLO APRN Ot R06.02 SHORTNESS OF BREATH 10/20/2019 TATA HERMOSILLO APRN Ot Z79.02 RESOLUTION EXPERT (CURRENT) USE OF ANTITHROMBOTI 10/20/2019 TATA HERMOSILLO APRN Ot Z79 .4 FDC (CURRENT) USE OF INSULIN 10/20/2019 TATA HERMOSILLO APRN Ot Z79.52 FDC (CURRENT) USE OF SYSTEMIC STER 10/20/2019 TATA HERMOSILLO APRN Ot Z79.82 RESOLUTION EXPERT (CURRENT) USE OF ASPIRIN 10/20/2019 TATA HERMOSILLO APRN Ot Z80 .0 FAMILY HISTORY OF MALIGNANT NEOPLASM OF 10/20/2019 TATA HERMOSILLO APRN Ot Z82.49 FAMILY HX OF ISCHE[place] HEART DIS AND OTH DI 10/20/2019 TATA HERMOSILLO APRN Ot Z85.828 PERSONAL HISTORY OF OTHER MALIGNANT NEOP 10/20/2019 TATA HERMOSILLO APRN Ot Z87.891 PERSONAL HISTORY OF NICOTINE DEPENDENCE 10/20/2019 TATA HERMOSILLO APRN Ot Z88 .5 ALLERGY STATUS TO NARCOTIC AGENT STATUS 10/20/2019 TATA HERMOSILLO APRN Ot Z95 .5 PRESENCE OF CORONARY ANGIOPLASTY IMPLANT 10/20/2019 TATA HERMOSILLO APRN Ot 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 9 ANEMIA, UNSPECIFIED 11/05/2019 [facility] Ot E11. 9 TYPE 2 DIABETES MELLITUS WITHOUT COMPLIC 11/05/2019 PATTON STEVAN JOHNSON Ot G47. 33 OBSTRUCTIVE SLEEP APNEA (ADULT) (PEDIATR 11/05/2019 STEVAN PATTON DO Ot I11. 0 HYPERTENSIVE HEART DISEASE WITH HEART FA 11/05/2019 PATTON STEVAN JOHNSON Ot I25. 10 ATHSCL HEART DISEASE OF [place] CORONARY 11/05/2019 PATTON STEVAN JOHNSON Ot I50. 9 HEART FAILURE, UNSPECIFIED 11/05/2019 [place] STEVAN JOHNSON Ot I65. 23 OCCLUSION AND STENOSIS OF BILATERAL BAZZI 11/05/2019 PATTON STEVAN JOHNSON Ot J43. 9 EMPHYSEMA, UNSPECIFIED 11/05/2019 [place] STEVAN JOHNSON Ot K57. 30 DVRTCLOS OF LG INT W/O PERFORATION OR AB 11/05/2019 PATTONSTEVAN CARR DO Ot Z79. 02 RESOLUTION EXPERT (CURRENT) USE OF ANTITHROMBOTI 11/05/2019 STEVAN PATTON DO Ot Z79. 4 FDC (CURRENT) USE OF INSULIN 11/05/2019 PATTON STEVAN JOHNSON Ot Z79. 82 RESOLUTION EXPERT (CURRENT) USE OF ASPIRIN 11/05/2019 STEVAN PATTON DO Ot Z79.899 OTHER FDC (CURRENT) DRUG THERAPY 11/05/2019 PATTON STEVAN JOHNSON Ot Z82. 49 FAMILY HX OF [place] HEART DIS AND OTH DI 11/05/2019 STEVAN PATTON DO Ot Z83. 3 FAMILY HISTORY OF DIABETES MELLITUS 11/05/2019 STEVAN PATTON DO Ot Z87.891 PERSONAL HISTORY OF NICOTINE DEPENDENCE 11/05/2019 STEVAN PATTON DO Ot Z88. 6 ALLERGY STATUS TO ANALGESIC AGENT STATUS 11/05/2019 STEVAN PATTON DO Ot Z99. 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 11/17/2019 JOYCE KAYE APRN Ot G47.33 OBSTRUCTIVE SLEEP APNEA (ADULT) (PEDIATR 11/17/2019 JOYCE KAYE APRN Ot J43.9 EMPHYSEMA, UNSPECIFIED 11/17/2019 JOYCE KAYE APRN Ot Z87.891 PERSONAL HISTORY OF NICOTINE DEPENDENCE 11/21/2019 DEACON RIBEIRO MD Ot E11.9 TYPE 2 DIABETES MELLITUS WITHOUT COMPLIC 11/21/2019 DEACON RIBEIRO MD Ot E78.00 PURE HYPERCHOLESTEROLEMIA, UNSPECIFIED 11/21/2019 DEACON RIBEIRO MD, Ot F41.9 ANXIETY DISORDER, UNSPECIFIED 11/21/2019 DEACON RIBEIRO MD Ot I10 ESSENTIAL (PRIMARY) HYPERTENSION 11/21/2019 DEACON RIBEIRO MD, Ot I25.10 ATHSCL HEART DISEASE OF [place] CORONARY 11/21/2019 DEACON RIBEIRO MD, Ot I25.2 OLD MYOCARDIAL INFARCTION 11/21/2019 DEACON RIBEIRO MD, Ot J06.9 ACUTE UPPER RESPIRATORY INFECTION, UNSPE 11/21/2019 DEACON RIBEIRO MD, Ot J44.1 CHRONIC OBSTRUCTIVE PULMONARY DISEASE W 11/21/2019 DEACON RIBEIRO MD, Ot K21.9 GASTRO-ESOPHAGEAL REFLUX DISEASE WITHOUT 11/21/2019 DEACON RIBEIRO MD Ot R06.02 SHORTNESS OF BREATH 11/21/2019 DEACON RIBEIRO MD, Ot Z77.22 CNTCT W AND EXPSR TO ENVIRON TOBACCO SMO 11/21/2019 DEACON RIBEIRO MD, Ot Z79.4 RESOLUTION EXPERT (CURRENT) USE OF INSULIN 11/21/2019 DEACON RIBEIRO MD, Ot Z79.82 FDC (CURRENT) USE OF ASPIRIN 11/21/2019 DEACON RIBEIRO MD, Ot Z80.0 FAMILY HISTORY OF MALIGNANT NEOPLASM OF 11/21/2019 DEACON RIBEIRO MD, Ot Z82.49 FAMILY HX OF ISCHEM HEART DIS AND OTH DI 11/21/2019 GEMA SHAFFER, DEACON Polo Ot Z85.828 PERSONAL HISTORY OF OTHER MALIGNANT NEOP 11/21/2019 DEACON RIBEIRO MD, Ot Z87.891 PERSONAL HISTORY OF NICOTINE DEPENDENCE 11/21/2019 GEMA SHAFFER, DEACON Polo Ot Z88.5 ALLERGY STATUS TO NARCOTIC AGENT STATUS 11/21/2019 GEMA SHAFFER, DAECON Polo Ot 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 11/21/2019 W J44.9 City Carrier Assistant rebecca airway obstruction, not elsewhere classified Gasper Lita S. 11/21/2019 W J96.12 Chr onic respiratory failure with hypercapnia Gasper Lita S. 12/22/2019 W G47.00 Ins omnia Gasper Lita S. 12/22/2019 W M25.561 Pa in in right knee Gasper Lita S. 12/22/2019 W Z91.19 Non compliance with diabetes treatment Gasper Lita S. 12/24/2019 CHANO DO, CIERA K Ot E11.9 TYPE 2 DIABETES MELLITUS WITHOUT COMPLIC 12/24/2019 CHANO DO, CIERA K Ot E78.00 PURE HYPERCHOLESTEROLEMIA, UNSPECIFIED 12/24/2019 CHANO DO, CIERA K Ot F41.9 ANXIETY DISORDER, UNSPECIFIED 12/24/2019 CHANO DO, CIERA K Ot G89.29 OTHER CHRONIC PAIN 12/24/2019 CHANO DO, CIERA K Ot I10 ESSENTIAL (PRIMARY) HYPERTENSION 12/24/2019 CHANO DO, CIERA K Ot I25.10 ATHSCL HEART DISEASE OF [place] CORONARY 12/24/2019 CHANO DO, CIERA K Ot I25.2 OLD MYOCARDIAL INFARCTION 12/24/2019 CHANO DO, CIERA K Ot J44.9 CHRONIC OBSTRUCTIVE PULMONARY DISEASE, U 12/24/2019 CHANO DO, CIERA K Ot K21.9 GASTRO-ESOPHAGEAL REFLUX DISEASE WITHOUT 12/24/2019 CHANO DO, CIERA K Ot M19.91 PRIMARY OSTEOARTHRITIS, UNSPECIFIED SITE 12/24/2019 CHANO DO, CIERA K Ot M25.561 PAIN IN RIGHT KNEE 12/24/2019 [facility], CIERA K Ot R06.02 SHORTNESS OF BREATH 12/24/2019 [place] DO, CIERA K Ot Z79.4 [facility] (CURRENT) USE OF INSULIN 12/24/2019 [facility], CIERA K Ot Z79.82 [facility] (CURRENT) USE OF ASPIRIN 12/24/2019 [facility] CIERA K Ot Z79.899 OTHER [facility] (CURRENT) DRUG THERAPY 12/24/2019 [facility] CIERA K Ot Z85.828 PERSONAL HISTORY OF OTHER MALIGNANT NEOP 12/24/2019 [facility] CIERA K Ot Z87.891 PERSONAL HISTORY OF NICOTINE DEPENDENCE 12/24/2019 [facility] CIERA K Ot Z91.19 PATIENT'S NONCOMPLIANCE W [facility] 12/24/2019 [facility] Ot 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 ANGIOPLASTY IMPLANT 12/24/2019 [facility] CIERA K Ot 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 12/25/2019 W 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 12/28/2019 [facility] CIERA K Ot E11.9 TYPE 2 DIABETES MELLITUS WITHOUT COMPLIC 12/28/2019 [place] DO CIERA K Ot E78.00 PURE HYPERCHOLESTEROLEMIA, UNSPECIFIED 12/28/2019 [place] DO CIERA K Ot F41.9 ANXIETY DISORDER, UNSPECIFIED 12/28/2019 [facility] CIERA K Ot G89.29 OTHER CHRONIC PAIN 12/28/2019 [place] DO CIERA K Ot I10 ESSENTIAL (PRIMARY) HYPERTENSION 12/28/2019 [place] DO CIERA K Ot I25.10 ATHSCL HEART DISEASE OF [place] CORONARY 12/28/2019 [place] DO CIERA K Ot I25.2 OLD MYOCARDIAL INFARCTION 12/28/2019 [place] DO CIERA K Ot J44.9 CHRONIC OBSTRUCTIVE PULMONARY DISEASE, U 12/28/2019 CHANO DO CIERA K Ot K21.9 GASTRO-ESOPHAGEAL REFLUX DISEASE WITHOUT 12/28/2019 [facility]AN[facility] DO CIERA K Ot M19.91 PRIMARY OSTEOARTHRITIS, UNSPECIFIED SITE 12/28/2019 [place] ICERA JOHNSON Ot M25.561 PAIN IN RIGHT KNEE 12/28/2019 [facility] R06.02 SHORTNESS OF BREATH 12/28/2019 [facility] Z79.4 RESOLUTION EXPERT (CURRENT) USE OF INSULIN 12/28/2019 [facility], CIERA Busch Ot Z79.82 [facility] (CURRENT) USE OF ASPIRIN 12/28/2019 [facility] CIERA Busch Ot Z79.899 OTHER [facility] (CURRENT) DRUG THERAPY 12/28/2019 [facility] ICERA Busch Ot Z85.828 PERSONAL HISTORY OF OTHER MALIGNANT NEOP 12/28/2019 [facility] CIERA Busch Ot Z87.891 PERSONAL HISTORY OF NICOTINE DEPENDENCE 12/28/2019 [facility]ER[facility] Busch Ot Z91.19 PATIENT'S NONCOMPLIANCE W [facility] 12/28/2019 [facility] Busch Ot 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 ANGIOPLASTY IMPLANT 12/28/2019 [facility] Busch Ot 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 Procedures Code Description Performed By Per bhupendra On [id number] [place] ASURE OF CARDIAC SAMPL PRESSURE, L H 06/02/2016 [id number] FL UOROSCOPY OF MULT COR ART USING L OSM 06/02/2016 [id number] FL UOROSCOPY OF LEFT HEART USING LOW OSMO 06/02/2016 [id number] FL UOROSCOPY OF ABDOMINAL AORTA USING LOW 06/02/2016 Results Test Result Range Complete blood count (CBC) with automate d white blood cell (WBC) differential - 06/01/16 17:35 Blood leukocytes automated count (number/volume) 8.2 10*3/uL 4.3-11.0 Blood erythrocytes automated count (number/volume) 3.73 10*6/uL 4.35-5.85 Venous blood hemoglobin measurement (mass/volume) 10.5 g/dL 13.3-17.7 Blood hematocrit (volume fraction) 32 % 40-54 Automated erythrocyte mean corpuscular volume 85 [ foz_us] 80-99 Automated erythrocyte mean corpuscular h emoglobin (mass per erythrocyte) 28 pg 25-34 Automated erythrocyte mean corpuscular h emoglobin concentration measurement (mass/volume) 33 g/dL 32-36 Automated erythrocyte distribution width ratio 13. 7 % 10.0- 14.5 Automated blood platelet count (count/volume) 211 10*3/uL 130-400 Automated blood platelet mean volume measurement 9.0 [foz_us] 7.4-10.4 Automated blood neutrophils/100 leukocytes 85 % 42-75 Automated blood lymphocytes/100 leukocytes 7 % 12-44 Blood monocytes/100 leukocytes 7 % 0-12 Automated blood eosinophils/100 leukocytes 0 % 0-10 Automated blood basophils/100 leukocytes 1 % 0-10 Blood neutrophils automated count (number/volume) 7.0 10*3 1.8-7.8 Blood lymphocytes automated count (number/volume) 0.6 10*3 1.0-4.0 Blood monocytes automated count (number/volume) 0. 5 10*3 0.0-1.0 Automated eosinophil count 0.0 10*3/uL 0 .0-0.3 Automated blood basophil count (count/volume) 0.0 10*3/uL 0.0-0.1 Fibrin D-dimer FEU measurement in platel et poor plasma (mass/volume) - 06/01/16 17:35 Fibrin D-dimer FEU measurement in platelet poor plasma (mass/volume) 0.40 ug/mL 0.00-0.49 Comprehensive metabolic panel - 06/01/16 17:35 Serum or plasma sodium measurement (moles/volume) 139 mmol/L 135-145 Serum or plasma potassium measurement (moles/volume) 4.6 mmol/L 3.6-5.0 Serum or plasma chloride measurement (moles/volume) 107 mmol/L 98-107 Carbon dioxide 21 mmol/L 21-32 Serum or plasma anion gap determination (moles/volume) 11 mmol/L 5-14 Serum or plasma urea nitrogen measurement (mass/volume ) 18 mg/dL 7-18 Serum or plasma creatinine measurement (mass/volume) 1.22 mg/dL 0.60-1.30 Serum or plasma urea nitrogen/creatinine mass ratio 15 NRG Serum or plasma creatinine measurement w ith calculation of estimated glomerular filtration rate 58 NRG Serum or plasma glucose measurement (mass/volume) 205 mg/dL 70-105 Serum or plasma calcium measurement (mass/volume) 9.2 mg/dL 8.5-10.1 Serum or plasma total bilirubin measurement (mass/volu me) 0.3 mg/dL 0.1-1.0 Serum or plasma alkaline phosphatase sergio surement (enzymatic activity/volume) 55 U/L 40-136 Serum or plasma aspartate aminotransfera se measurement (enzymatic activity/volume) 30 U/L 5-34 Serum or plasma alanine aminotransferase measurement (enzymatic activity/volume) 43 U/L 0-55 Serum or plasma protein measurement (mass/volume) 6.9 g/dL 6.4-8.2 Serum or plasma albumin measurement (mass/volume) 4.4 g/dL 3.2-4.5 Serum or plasma troponin i.cardiac measu rement (mass/volume) - 06/01/16 17:35 Serum or plasma troponin i.cardiac measurement (mass/v olume) 0.39 ng/mL <0.30 Serum or plasma lithium measurement (mol es/volume) - 06/01/16 17:35 BNP level 39.6 pg/mL <100.0 Complete blood count (CBC) with automate d white blood cell (WBC) differential - 06/01/16 19:00 Blood leukocytes automated count (number/volume) 8.2 10*3/uL 4.3-11.0 Blood erythrocytes automated count (number/volume) 3.63 10*6/uL 4.35-5.85 Venous blood hemoglobin measurement (mass/volume) 10.3 g/dL 13.3-17.7 Blood hematocrit (volume fraction) 31 % 40-54 Automated erythrocyte mean corpuscular volume 85 [ foz_us] 80-99 Automated erythrocyte mean corpuscular h emoglobin (mass per erythrocyte) 28 pg 25-34 Automated erythrocyte mean corpuscular h emoglobin concentration measurement (mass/volume) 33 g/dL 32-36 Automated erythrocyte distribution width ratio 13. 6 % 10.0- 14.5 Automated blood platelet count (count/volume) 233 10*3/uL 130-400 Automated blood platelet mean volume measurement 9.4 [foz_us] 7.4-10.4 Automated blood neutrophils/100 leukocytes 82 % 42-75 Automated blood lymphocytes/100 leukocytes 9 % 12-44 Blood monocytes/100 leukocytes 8 % 0-12 Automated blood eosinophils/100 leukocytes 0 % 0-10 Automated blood basophils/100 leukocytes 1 % 0-10 Blood neutrophils automated count (number/volume) 6.7 10*3 1.8-7.8 Blood lymphocytes automated count (number/volume) 0.8 10*3 1.0-4.0 Blood monocytes automated count (number/volume) 0. 7 10*3 0.0-1.0 Automated eosinophil count 0.0 10*3/uL 0 .0-0.3 Automated blood basophil count (count/volume) 0.0 10*3/uL 0.0-0.1 PT panel in platelet poor plasma by coag ulation assay - 06/01/16 19:00 Prothrombin time (PT) in platelet poor plasma by coagu lation assay 13.2 s 12.2-14.7 INR in platelet poor plasma or blood by coagulation as say 1.0 0.8-1.4 Activated partial thromboplastin time (a PTT) in platelet poor plasma bycoagulation assay - 06/01/16 19:00 Activated partial thromboplastin time (a PTT) in platelet poor plasma bycoagulation assay 22 s 24-35 Comprehensive metabolic panel - 06/01/16 19:00 Serum or plasma sodium measurement (moles/volume) 138 mmol/L 135-145 Serum or plasma potassium measurement (moles/volume) 4.3 mmol/L 3.6-5.0 Serum or plasma chloride measurement (moles/volume) 108 mmol/L 98-107 Carbon dioxide 19 mmol/L 21-32 Serum or plasma anion gap determination (moles/volume) 11 mmol/L 5-14 Serum or plasma urea nitrogen measurement (mass/volume ) 19 mg/dL 7-18 Serum or plasma creatinine measurement (mass/volume) 1.22 mg/dL 0.60-1.30 Serum or plasma urea nitrogen/creatinine mass ratio 16 NRG Serum or plasma creatinine measurement w ith calculation of estimated glomerular filtration rate 58 NRG Serum or plasma glucose measurement (mass/volume) 217 mg/dL 70-105 Serum or plasma calcium measurement (mass/volume) 8.8 mg/dL 8.5-10.1 Serum or plasma total bilirubin measurement (mass/volu me) 0.3 mg/dL 0.1-1.0 Serum or plasma alkaline phosphatase sergio surement (enzymatic activity/volume) 57 U/L 40-136 Serum or plasma aspartate aminotransfera se measurement (enzymatic activity/volume) 29 U/L 5-34 Serum or plasma alanine aminotransferase measurement (enzymatic activity/volume) 38 U/L 0-55 Serum or plasma protein measurement (mass/volume) 6.9 g/dL 6.4-8.2 Serum or plasma albumin measurement (mass/volume) 4.3 g/dL 3.2-4.5 Magnesium - 06/01/16 19:00 Magnesium 2.3 mg/dL 1.8-2.4 Serum or plasma creatine kinase measurem ent (enzymatic activity/volume) - 06/01/16 19:00 Serum or plasma creatine kinase measurem ent (enzymatic activity/volume) 205 U/L 30-200 Serum or plasma creatine kinase MB measu rement (enzymatic activity/volume) - 06/01/16 19:00 Serum or plasma creatine kinase MB measu rement (enzymatic activity/volume) 6.7 ng/mL <6.6 Serum or plasma troponin i.cardiac measu rement (mass/volume) - 06/01/16 19:00 Serum or plasma troponin i.cardiac measurement (mass/v olume) 0.53 ng/mL <0.30 Serum or plasma amylase measurement (enz ymatic activity/volume) - 06/01/16 19:00 Serum or plasma amylase measurement (enzymatic activit y/volume) 34 U/L 25-125 Lipase - 06/01/16 19:00 Lipase 49 U/L 8-78 Serum or plasma lithium measurement (mol es/volume) - 06/01/16 19:00 BNP level 44.3 pg/mL <100.0 Capillary blood glucose measurement by g lucometer (mass/volume) - 06/01/16 23:26 Capillary blood glucose measurement by glucometer (mas s/volume) 219 mg/dL 70-110 Serum or plasma troponin i.cardiac measu rement (mass/volume) - 06/02/16 01:12 Serum or plasma troponin i.cardiac measurement (mass/v olume) 1.25 ng/mL <0.30 Myoglobin, serum - 06/02/16 01:12 Myoglobin, serum 87.0 ng/mL 10.0-92.0 Complete blood count (CBC) with automate d white blood cell (WBC) differential - 06/02/16 03:52 Blood leukocytes automated count (number/volume) 6.6 10*3/uL 4.3-11.0 Blood erythrocytes automated count (number/volume) 3.46 10*6/uL 4.35-5.85 Venous blood hemoglobin measurement (mass/volume) 9.8 g/dL 13.3-17.7 Blood hematocrit (volume fraction) 30 % 40-54 Automated erythrocyte mean corpuscular volume 86 [ foz_us] 80-99 Automated erythrocyte mean corpuscular h emoglobin (mass per erythrocyte) 28 pg 25-34 Automated erythrocyte mean corpuscular h emoglobin concentration measurement (mass/volume) 33 g/dL 32-36 Automated erythrocyte distribution width ratio 13. 7 % 10.0- 14.5 Automated blood platelet count (count/volume) 186 10*3/uL 130-400 Automated blood platelet mean volume measurement 9.7 [foz_us] 7.4-10.4 Automated blood neutrophils/100 leukocytes 72 % 42-75 Automated blood lymphocytes/100 leukocytes 15 % 12-44 Blood monocytes/100 leukocytes 10 % 0-12 Automated blood eosinophils/100 leukocytes 2 % 0-10 Automated blood basophils/100 leukocytes 1 % 0-10 Blood neutrophils automated count (number/volume) 4.8 10*3 1.8-7.8 Blood lymphocytes automated count (number/volume) 1.0 10*3 1.0-4.0 Blood monocytes automated count (number/volume) 0. 7 10*3 0.0-1.0 Automated eosinophil count 0.1 10*3/uL 0 .0-0.3 Automated blood basophil count (count/volume) 0.0 10*3/uL 0.0-0.1 Comprehensive metabolic panel - 06/02/16 03:52 Serum or plasma sodium measurement (moles/volume) 141 mmol/L 135-145 Serum or plasma potassium measurement (moles/volume) 4.0 mmol/L 3.6-5.0 Serum or plasma chloride measurement (moles/volume) 110 mmol/L 98-107 Carbon dioxide 20 mmol/L 21-32 Serum or plasma anion gap determination (moles/volume) 11 mmol/L 5-14 Serum or plasma urea nitrogen measurement (mass/volume ) 19 mg/dL 7-18 Serum or plasma creatinine measurement (mass/volume) 1.19 mg/dL 0.60-1.30 Serum or plasma urea nitrogen/creatinine mass ratio 16 NRG Serum or plasma creatinine measurement w ith calculation of estimated glomerular filtration rate 60 NRG Serum or plasma glucose measurement (mass/volume) 204 mg/dL 70-105 Serum or plasma calcium measurement (mass/volume) 8.7 mg/dL 8.5-10.1 Serum or plasma total bilirubin measurement (mass/volu me) 0.2 mg/dL 0.1-1.0 Serum or plasma alkaline phosphatase sergio surement (enzymatic activity/volume) 48 U/L 40-136 Serum or plasma aspartate aminotransfera se measurement (enzymatic activity/volume) 26 U/L 5-34 Serum or plasma alanine aminotransferase measurement (enzymatic activity/volume) 36 U/L 0-55 Serum or plasma protein measurement (mass/volume) 6.1 g/dL 6.4-8.2 Serum or plasma albumin measurement (mass/volume) 3.9 g/dL 3.2-4.5 Lipid 1996 panel - 06/02/16 03:52 Serum or plasma triglyceride measurement (mass/volume) 400 mg/dL <150 Serum or plasma cholesterol measurement (mass/volume) 189 mg/dL < 200 Serum or plasma cholesterol in HDL measurement (mass/v olume) 35 mg/dL 40-60 Cholesterol in LDL [mass/volume] in serum or plasma by direct assay 121 mg/dL 1-129 Serum or plasma cholesterol in VLDL measurement (mass/ volume) 80 mg/dL 5-40 Capillary blood glucose measurement by g lucometer (mass/volume) - 06/02/16 06:30 Capillary blood glucose measurement by glucometer (mas s/volume) 187 mg/dL 70-110 Capillary blood glucose measurement by g lucometer (mass/volume) - 06/02/16 11:07 Capillary blood glucose measurement by glucometer (mas s/volume) 203 mg/dL 70-110 Capillary blood glucose measurement by g lucometer (mass/volume) - 06/02/16 17:37 Capillary blood glucose measurement by glucometer (mas s/volume) 134 mg/dL 70-110 Complete blood count (CBC) with automate d white blood cell (WBC) differential - 06/22/16 16:31 Blood leukocytes automated count (number/volume) 8.3 10*3/uL 4.3-11.0 Blood erythrocytes automated count (number/volume) 3.67 10*6/uL 4.35-5.85 Venous blood hemoglobin measurement (mass/volume) 10.1 g/dL 13.3-17.7 Blood hematocrit (volume fraction) 31 % 40-54 Automated erythrocyte mean corpuscular volume 85 [ foz_us] 80-99 Automated erythrocyte mean corpuscular h emoglobin (mass per erythrocyte) 28 pg 25-34 Automated erythrocyte mean corpuscular h emoglobin concentration measurement (mass/volume) 33 g/dL 32-36 Automated erythrocyte distribution width ratio 13. 4 % 10.0- 14.5 Automated blood platelet count (count/volume) 235 10*3/uL 130-400 Automated blood platelet mean volume measurement 9.5 [foz_us] 7.4-10.4 Automated blood neutrophils/100 leukocytes 79 % 42-75 Automated blood lymphocytes/100 leukocytes 11 % 12-44 Blood monocytes/100 leukocytes 7 % 0-12 Automated blood eosinophils/100 leukocytes 3 % 0-10 Automated blood basophils/100 leukocytes 1 % 0-10 Blood neutrophils automated count (number/volume) 6.5 10*3 1.8-7.8 Blood lymphocytes automated count (number/volume) 0.9 10*3 1.0-4.0 Blood monocytes automated count (number/volume) 0. 6 10*3 0.0-1.0 Automated eosinophil count 0.2 10*3/uL 0 .0-0.3 Automated blood basophil count (count/volume) 0.0 10*3/uL 0.0-0.1 Comprehensive metabolic panel - 06/22/16 16:31 Serum or plasma sodium measurement (moles/volume) 138 mmol/L 135-145 Serum or plasma potassium measurement (moles/volume) 4.5 mmol/L 3.6-5.0 Serum or plasma chloride measurement (moles/volume) 104 mmol/L 98-107 Carbon dioxide 20 mmol/L 21-32 Serum or plasma anion gap determination (moles/volume) 14 mmol/L 5-14 Serum or plasma urea nitrogen measurement (mass/volume ) 29 mg/dL 7-18 Serum or plasma creatinine measurement (mass/volume) 1.50 mg/dL 0.60-1.30 Serum or plasma urea nitrogen/creatinine mass ratio 19 NRG Serum or plasma creatinine measurement w ith calculation of estimated glomerular filtration rate 46 NRG Serum or plasma glucose measurement (mass/volume) 197 mg/dL 70-105 Serum or plasma calcium measurement (mass/volume) 9.6 mg/dL 8.5-10.1 Serum or plasma total bilirubin measurement (mass/volu me) 0.5 mg/dL 0.1-1.0 Serum or plasma alkaline phosphatase sergio surement (enzymatic activity/volume) 54 U/L 40-136 Serum or plasma aspartate aminotransfera se measurement (enzymatic activity/volume) 23 U/L 5-34 Serum or plasma alanine aminotransferase measurement (enzymatic activity/volume) 32 U/L 0-55 Serum or plasma protein measurement (mass/volume) 6.9 g/dL 6.4-8.2 Serum or plasma albumin measurement (mass/volume) 4.4 g/dL 3.2-4.5 Serum or plasma troponin i.cardiac measu rement (mass/volume) - 06/22/16 16:31 Serum or plasma troponin i.cardiac measurement (mass/v olume) < ng/mL <0.30 Serum or plasma troponin i.cardiac measu rement (mass/volume) - 06/22/16 16:31 Serum or plasma troponin i.cardiac measurement (mass/v olume) < ng/mL <0.30 PT panel in platelet poor plasma by coag ulation assay - 06/22/16 17:20 Prothrombin time (PT) in platelet poor plasma by coagu lation assay 13.1 s 12.2-14.7 INR in platelet poor plasma or blood by coagulation as say 1.0 0.8-1.4 Serum or plasma troponin i.cardiac measu rement (mass/volume) - 06/22/16 22:18 Serum or plasma troponin i.cardiac measurement (mass/v olume) < ng/mL <0.30 Automated blood complete blood count (he mogram) panel - 06/23/16 03:27 Blood leukocytes automated count (number/volume) 7.6 10*3/uL 4.3-11.0 Blood erythrocytes automated count (number/volume) 3.63 10*6/uL 4.35-5.85 Venous blood hemoglobin measurement (mass/volume) 10.0 g/dL 13.3-17.7 Blood hematocrit (volume fraction) 31 % 40-54 Automated erythrocyte mean corpuscular volume 84 [ foz_us] 80-99 Automated erythrocyte mean corpuscular h emoglobin (mass per erythrocyte) 28 pg 25-34 Automated erythrocyte mean corpuscular h emoglobin concentration measurement (mass/volume) 33 g/dL 32-36 Automated erythrocyte distribution width ratio 13. 3 % 10.0- 14.5 Automated blood platelet count (count/volume) 232 10*3/uL 130-400 Automated blood platelet mean volume measurement 10.2 [foz_us] 7.4-10.4 Whole blood basic metabolic panel - 05/27 03:27 Serum or plasma sodium measurement (moles/volume) 138 mmol/L 135-145 Serum or plasma potassium measurement (moles/volume) 5.0 mmol/L 3.6-5.0 Serum or plasma chloride measurement (moles/volume) 105 mmol/L 98-107 Carbon dioxide 19 mmol/L 21-32 Serum or plasma anion gap determination (moles/volume) 14 mmol/L 5-14 Serum or plasma urea nitrogen measurement (mass/volume ) 35 mg/dL 7-18 Serum or plasma creatinine measurement (mass/volume) 1.55 mg/dL 0.60-1.30 Serum or plasma urea nitrogen/creatinine mass ratio 23 NRG Serum or plasma creatinine measurement w ith calculation of estimated glomerular filtration rate 44 NRG Serum or plasma glucose measurement (mass/volume) 266 mg/dL 70-105 Serum or plasma calcium measurement (mass/volume) 9.9 mg/dL 8.5-10.1 Magnesium - 06/23/16 03:27 Magnesium 2.3 mg/dL 1.8-2.4 Serum or plasma troponin i.cardiac measu rement (mass/volume) - 06/23/16 03:27 Serum or plasma troponin i.cardiac measurement (mass/v olume) < ng/mL <0.30 Serum or plasma lithium measurement (mol es/volume) - 06/23/16 03:27 BNP level 16.8 pg/mL <100.0 Complete blood count (CBC) with automate d white blood cell (WBC) differential - 12/10/16 03:27 Blood leukocytes automated count (number/volume) 5.7 10*3/uL 4.3-11.0 Blood erythrocytes automated count (number/volume) 3.49 10*6/uL 4.35-5.85 Venous blood hemoglobin measurement (mass/volume) 7.5 g/dL 13.3-17.7 Blood hematocrit (volume fraction) 26 % 40-54 Automated erythrocyte mean corpuscular volume 73 [ foz_us] 80-99 Automated erythrocyte mean corpuscular h emoglobin (mass per erythrocyte) 22 pg 25-34 Automated erythrocyte mean corpuscular h emoglobin concentration measurement (mass/volume) 29 g/dL 32-36 Automated erythrocyte distribution width ratio 16. 9 % 10.0- 14.5 Automated blood platelet count (count/volume) 239 10*3/uL 130-400 Automated blood platelet mean volume measurement 8.6 [foz_us] 7.4-10.4 Automated blood neutrophils/100 leukocytes 66 % 42-75 Automated blood lymphocytes/100 leukocytes 21 % 12-44 Blood monocytes/100 leukocytes 11 % 0-12 Automated blood eosinophils/100 leukocytes 3 % 0-10 Automated blood basophils/100 leukocytes 0 % 0-10 Blood neutrophils automated count (number/volume) 3.7 10*3 1.8-7.8 Blood lymphocytes automated count (number/volume) 1.2 10*3 1.0-4.0 Blood monocytes automated count (number/volume) 0. 6 10*3 0.0-1.0 Automated eosinophil count 0.2 10*3/uL 0 .0-0.3 Automated blood basophil count (count/volume) 0.0 10*3/uL 0.0-0.1 PT panel in platelet poor plasma by coag ulation assay - 12/10/16 03:27 Prothrombin time (PT) in platelet poor plasma by coagu lation assay 13.3 s 12.2-14.7 INR in platelet poor plasma or blood by coagulation as say 1.0 0.8-1.4 Activated partial thromboplastin time (a PTT) in platelet poor plasma bycoagulation assay - 12/10/16 03:27 Activated partial thromboplastin time (a PTT) in platelet poor plasma bycoagulation assay 25 s 24-35 Comprehensive metabolic panel - 12/10/16 03:27 Serum or plasma sodium measurement (moles/volume) 139 mmol/L 135-145 Serum or plasma potassium measurement (moles/volume) 4.0 mmol/L 3.6-5.0 Serum or plasma chloride measurement (moles/volume) 105 mmol/L 98-107 Carbon dioxide 24 mmol/L 21-32 Serum or plasma anion gap determination (moles/volume) 10 mmol/L 5-14 Serum or plasma urea nitrogen measurement (mass/volume ) 15 mg/dL 7-18 Serum or plasma creatinine measurement (mass/volume) 1.16 mg/dL 0.60-1.30 Serum or plasma urea nitrogen/creatinine mass ratio 13 NRG Serum or plasma creatinine measurement w ith calculation of estimated glomerular filtration rate > NRG Serum or plasma glucose measurement (mass/volume) 258 mg/dL 70-105 Serum or plasma calcium measurement (mass/volume) 8.7 mg/dL 8.5-10.1 Serum or plasma total bilirubin measurement (mass/volu me) 0.4 mg/dL 0.1-1.0 Serum or plasma alkaline phosphatase sergio surement (enzymatic activity/volume) 56 U/L 40-136 Serum or plasma aspartate aminotransfera se measurement (enzymatic activity/volume) 15 U/L 5-34 Serum or plasma alanine aminotransferase measurement (enzymatic activity/volume) 17 U/L 0-55 Serum or plasma protein measurement (mass/volume) 6.4 g/dL 6.4-8.2 Serum or plasma albumin measurement (mass/volume) 4.1 g/dL 3.2-4.5 Serum or plasma creatine kinase measurem ent (enzymatic activity/volume) - 12/10/16 03:27 Serum or plasma creatine kinase measurem ent (enzymatic activity/volume) 99 U/L 30-200 Serum or plasma creatine kinase MB measu rement (enzymatic activity/volume) - 12/10/16 03:27 Serum or plasma creatine kinase MB measu rement (enzymatic activity/volume) 2.8 ng/mL <6.6 Serum or plasma troponin i.cardiac measu rement (mass/volume) - 12/10/16 03:27 Serum or plasma troponin i.cardiac measurement (mass/v olume) < ng/mL <0.30 Serum or plasma lithium measurement (mol es/volume) - 12/10/16 03:27 BNP level 41.4 pg/mL <100.0 RED CELLS LEUKO REDUCED AS1 - 12/22/16 1 0:09 RED CELLS LEUKO REDUCED AS1 T RANSFUSED 12/22/16 1309 NRG Blood type T Indirect antibody screen pa elly - 12/22/16 10:09 ABO+Rh group AP NRG Transfusion band number [id number] NRG Blood group antibody screen NEGATIVE NR G Complete blood count (CBC) with automate d white blood cell (WBC) differential - 06/13/17 23:54 Blood leukocytes automated count (number/volume) 14.1 10*3/uL 4.3-11.0 Blood erythrocytes automated count (number/volume) 4.10 10*6/uL 4.35-5.85 Venous blood hemoglobin measurement (mass/volume) 11.2 g/dL 13.3-17.7 Blood hematocrit (volume fraction) 34 % 40-54 Automated erythrocyte mean corpuscular volume 83 [ foz_us] 80-99 Automated erythrocyte mean corpuscular h emoglobin (mass per erythrocyte) 27 pg 25-34 Automated erythrocyte mean corpuscular h emoglobin concentration measurement (mass/volume) 33 g/dL 32-36 Automated erythrocyte distribution width ratio 16. 3 % 10.0- 14.5 Automated blood platelet count (count/volume) 242 10*3/uL 130-400 Automated blood platelet mean volume measurement 9.9 [foz_us] 7.4-10.4 Automated blood neutrophils/100 leukocytes 82 % 42-75 Automated blood lymphocytes/100 leukocytes 6 % 12-44 Blood monocytes/100 leukocytes 10 % 0-12 Automated blood eosinophils/100 leukocytes 2 % 0-10 Automated blood basophils/100 leukocytes 0 % 0-10 Blood neutrophils automated count (number/volume) 11.6 10*3 1.8-7.8 Blood lymphocytes automated count (number/volume) 0.9 10*3 1.0-4.0 Blood monocytes automated count (number/volume) 1. 4 10*3 0.0-1.0 Automated eosinophil count 0.2 10*3/uL 0 .0-0.3 Automated blood basophil count (count/volume) 0.0 10*3/uL 0.0-0.1 PT panel in platelet poor plasma by coag ulation assay - 06/13/17 23:54 Prothrombin time (PT) in platelet poor plasma by coagu lation assay 13.2 s 12.2-14.7 INR in platelet poor plasma or blood by coagulation as say 1.0 0.8-1.4 Activated partial thromboplastin time (a PTT) in platelet poor plasma bycoagulation assay - 06/13/17 23:54 Activated partial thromboplastin time (a PTT) in platelet poor plasma bycoagulation assay 22 s 24-35 Blood manual differential performed dete ction - 06/13/17 23:54 Blood monocytes/100 leukocytes 8 % NRG Manual blood segmented neutrophils/100 leukocytes 85 % NRG Blood band neutrophils/100 leukocytes 1 % NRG Manual blood lymphocytes/100 leukocytes 4 % NRG Manual eosinophils/100 leukocytes in nose 2 % NRG Manual blood basophils/100 leukocytes 0 % NRG Blood polychromasia detection by light microscopy SLIGHT NRG Blood anisocytosis detection by light microscopy S LIGHT NRG Blood macrocytes detection by light microscopy I [facility] NR Blood ovalocytes detection by light microscopy [facility] Comprehensive metabolic panel - 06/13/17 23:54 Serum or plasma sodium measurement (moles/volume) 135 mmol/L 135-145 Serum or plasma potassium measurement (moles/volume) 4.6 mmol/L 3.6-5.0 Serum or plasma chloride measurement (moles/volume) 98 mmol/L 98-107 Carbon dioxide 21 mmol/L 21-32 Serum or plasma anion gap determination (moles/volume) 16 mmol/L 5-14 Serum or plasma urea nitrogen measurement (mass/volume ) 18 mg/dL 7-18 Serum or plasma creatinine measurement (mass/volume) 1.35 mg/dL 0.60-1.30 Serum or plasma urea nitrogen/creatinine mass ratio 13 NRG Serum or plasma creatinine measurement w ith calculation of estimated glomerular filtration rate 52 NRG Serum or plasma glucose measurement (mass/volume) 313 mg/dL 70-105 Serum or plasma calcium measurement (mass/volume) 9.5 mg/dL 8.5-10.1 Serum or plasma total bilirubin measurement (mass/volu me) 0.7 mg/dL 0.1-1.0 Serum or plasma alkaline phosphatase sergio surement (enzymatic activity/volume) 62 U/L 40-136 Serum or plasma aspartate aminotransfera se measurement (enzymatic activity/volume) 10 U/L 5-34 Serum or plasma alanine aminotransferase measurement (enzymatic activity/volume) 13 U/L 0-55 Serum or plasma protein measurement (mass/volume) 7.1 g/dL 6.4-8.2 Serum or plasma albumin measurement (mass/volume) 4.3 g/dL 3.2-4.5 Serum or plasma phosphate measurement (m ass/volume) - 06/13/17 23:54 Serum or plasma phosphate measurement (mass/volume) 1.9 mg/dL 2.3-4.7 Magnesium - 06/13/17 23:54 Magnesium 1.6 mg/dL 1.8-2.4 Serum or plasma lithium measurement (mol es/volume) - 06/13/17 23:54 BNP level 22.6 pg/mL <100.0 Serum or plasma troponin i.cardiac measu rement (mass/volume) - 06/13/17 23:54 Serum or plasma troponin i.cardiac measurement (mass/v olume) < ng/mL <0.30 Myoglobin, serum - 06/13/17 23:54 Myoglobin, serum 103.6 ng/mL 10.0-92.0 Bacterial blood culture - 06/13/17 23:54 Bacterial blood culture NG NRG Serum or plasma C reactive protein measu rement (mass/volume) - 06/13/17 23:58 Serum or plasma C reactive protein measurement (mass/v olume) 5.00 mg/dL 0.00-0.50 Bacterial blood culture - 06/14/17 00:19 Bacterial blood culture NG NRG Arterial blood gas measurement - 7 01:11 Blood pCO2 40 mm[Hg] 35-45 Blood pO2 116 mm[Hg] 79-93 Arterial blood bicarbonate measurement (moles/volume) 25 mmol/L 23-27 Arterial blood base excess by calculation 1.1 mmol /L -2.5-2.5 Arterial blood oxygen saturation measurement 99 % 94-100 * Inhaled oxygen flow rate 6L NRG Arterial blood pH measurement with patient temperature correction 7.41 7.37-7.43 Arterial blood carbon dioxide, total measurement (mole s/volume) 26.6 mmol/L 21.0-31.0 Body site R RAD NRG Assessment of wrist artery patency prior to arterial p uncture YES-POS NRG Setting of ventilation mode NO NR G Measurement of body temperature 97.8 NRG Complete urinalysis with reflex to cultu re - 06/14/17 03:00 Urine color determination YELLOW NRG Urine clarity determination CLEAR NR G Urine pH measurement by test strip 5 5-9 Specific gravity of urine by test strip 1.010 1.016-1.022 Urine protein assay by test strip, semi-quantitative 2+ NEGATIVE Urine glucose detection by automated test strip 4+ NEGATIVE Erythrocytes detection in urine sediment by light micr oscopy NEGATIVE NEGATIVE Urine ketones detection by automated test strip 1+ NEGATIVE Urine nitrite detection by test strip NEGATIVE NEGATIVE Urine total bilirubin detection by test strip NEGA TIVE NEGATIVE Urine urobilinogen measurement by automated test strip (mass/volume) NORMAL NORMAL Urine leukocyte esterase detection by dipstick NEG ATIVE NEGATIVE Automated urine sediment erythrocyte cou nt by microscopy (number/high power field) NONE NRG Automated urine sediment leukocyte count by microscopy (number/high power field) NONE NRG Bacteria detection in urine sediment by light microsco py NEGATIVE NRG Squamous epithelial cells detection in u rine sediment by light microscopy RARE NRG Crystals detection in urine sediment by light microsco py NONE NRG Casts detection in urine sediment by light microscopy PRESENT NRG Mucus detection in urine sediment by light microscopy SMALL NRG Complete urinalysis with reflex to culture NO NRG Hyaline casts detection in urine sediment by light karlene roscopy RARE NRG Capillary blood glucose measurement by g lucometer (mass/volume) - 06/14/17 06:57 Capillary blood glucose measurement by glucometer (mas s/volume) 476 mg/dL 70-110 Complete blood count (CBC) with automate d white blood cell (WBC) differential - 06/14/17 08:00 Blood leukocytes automated count (number/volume) 13.5 10*3/uL 4.3-11.0 Blood erythrocytes automated count (number/volume) 3.83 10*6/uL 4.35-5.85 Venous blood hemoglobin measurement (mass/volume) 10.3 g/dL 13.3-17.7 Blood hematocrit (volume fraction) 32 % 40-54 Automated erythrocyte mean corpuscular volume 84 [ foz_us] 80-99 Automated erythrocyte mean corpuscular h emoglobin (mass per erythrocyte) 27 pg 25-34 Automated erythrocyte mean corpuscular h emoglobin concentration measurement (mass/volume) 32 g/dL 32-36 Automated erythrocyte distribution width ratio 16. 4 % 10.0- 14.5 Automated blood platelet count (count/volume) 239 10*3/uL 130-400 Automated blood platelet mean volume measurement 10.1 [foz_us] 7.4-10.4 Automated blood neutrophils/100 leukocytes 93 % 42-75 Automated blood lymphocytes/100 leukocytes 2 % 12-44 Blood monocytes/100 leukocytes 4 % 0-12 Automated blood eosinophils/100 leukocytes 0 % 0-10 Automated blood basophils/100 leukocytes 0 % 0-10 Blood neutrophils automated count (number/volume) 12.5 10*3 1.8-7.8 Blood lymphocytes automated count (number/volume) 0.3 10*3 1.0-4.0 Blood monocytes automated count (number/volume) 0. 6 10*3 0.0-1.0 Automated eosinophil count 0.0 10*3/uL 0 .0-0.3 Automated blood basophil count (count/volume) 0.0 10*3/uL 0.0-0.1 Whole blood basic metabolic panel - 05/26 10/10 08:00 Serum or plasma sodium measurement (moles/volume) 134 mmol/L 135-145 Serum or plasma potassium measurement (moles/volume) 4.6 mmol/L 3.6-5.0 Serum or plasma chloride measurement (moles/volume) 96 mmol/L 98-107 Carbon dioxide 18 mmol/L 21-32 Serum or plasma anion gap determination (moles/volume) 20 mmol/L 5-14 Serum or plasma urea nitrogen measurement (mass/volume ) 23 mg/dL 7-18 Serum or plasma creatinine measurement (mass/volume) 1.59 mg/dL 0.60-1.30 Serum or plasma urea nitrogen/creatinine mass ratio 14 NRG Serum or plasma creatinine measurement w ith calculation of estimated glomerular filtration rate 43 NRG Serum or plasma glucose measurement (mass/volume) 543 mg/dL 70-105 Serum or plasma calcium measurement (mass/volume) 9.4 mg/dL 8.5-10.1 Serum or plasma phosphate measurement (m ass/volume) - 06/14/17 08:00 Serum or plasma phosphate measurement (mass/volume) 4.2 mg/dL 2.3-4.7 Magnesium - 06/14/17 08:00 Magnesium 1.9 mg/dL 1.8-2.4 Lipid 1996 panel - 06/14/17 08:00 Serum or plasma triglyceride measurement (mass/volume) 113 mg/dL <150 Serum or plasma cholesterol measurement (mass/volume) 121 mg/dL < 200 Serum or plasma cholesterol in HDL measurement (mass/v olume) 40 mg/dL 40-60 Cholesterol in LDL [mass/volume] in serum or plasma by direct assay 66 mg/dL 1-129 Serum or plasma cholesterol in VLDL measurement (mass/ volume) 23 mg/dL 5-40 Serum or plasma troponin i.cardiac measu rement (mass/volume) - 06/14/17 08:00 Serum or plasma troponin i.cardiac measurement (mass/v olume) 0.75 ng/mL <0.30 Capillary blood glucose measurement by g lucometer (mass/volume) - 06/14/17 10:57 Capillary blood glucose measurement by glucometer (mas s/volume) 414 mg/dL 70-110 Serum or plasma troponin i.cardiac measu rement (mass/volume) - 06/14/17 14:20 Serum or plasma troponin i.cardiac measurement (mass/v olume) 0.76 ng/mL <0.30 Capillary blood glucose measurement by g lucometer (mass/volume) - 06/14/17 16:45 Capillary blood glucose measurement by glucometer (mas s/volume) 516 mg/dL 70-110 Capillary blood glucose measurement by g lucometer (mass/volume) - 06/14/17 19:51 Capillary blood glucose measurement by glucometer (mas s/volume) 458 mg/dL 70-110 Capillary blood glucose measurement by g lucometer (mass/volume) - 06/14/17 21:04 Capillary blood glucose measurement by glucometer (mas s/volume) 399 mg/dL 70-110 Capillary blood glucose measurement by g lucometer (mass/volume) - 06/14/17 22:01 Capillary blood glucose measurement by glucometer (mas s/volume) 352 mg/dL 70-110 Capillary blood glucose measurement by g lucometer (mass/volume) - 06/14/17 22:48 Capillary blood glucose measurement by glucometer (mas s/volume) 324 mg/dL 70-110 Capillary blood glucose measurement by g lucometer (mass/volume) - 06/15/17 00:03 Capillary blood glucose measurement by glucometer (mas s/volume) 283 mg/dL 70-110 Serum or plasma renal function panel (Na , K, Cl, CO2, BUN, Cr, glucose,Ca, phos, alb) - 06/15/17 00:22 Serum or plasma sodium measurement (moles/volume) 136 mmol/L 135-145 Serum or plasma potassium measurement (moles/volume) 3.7 mmol/L 3.6-5.0 Serum or plasma chloride measurement (moles/volume) 102 mmol/L 98-107 Carbon dioxide 22 mmol/L 21-32 Serum or plasma anion gap determination (moles/volume) 12 mmol/L 5-14 Serum or plasma urea nitrogen measurement (mass/volume ) 25 mg/dL 7-18 Serum or plasma creatinine measurement (mass/volume) 1.22 mg/dL 0.60-1.30 Serum or plasma urea nitrogen/creatinine mass ratio 20 NRG Serum or plasma creatinine measurement w ith calculation of estimated glomerular filtration rate 58 NRG Serum or plasma glucose measurement (mass/volume) 257 mg/dL 70-105 Serum or plasma calcium measurement (mass/volume) 8.9 mg/dL 8.5-10.1 Serum or plasma albumin measurement (mass/volume) 3.6 g/dL 3.2-4.5 Serum or plasma phosphate measurement (mass/volume) 2.3 mg/dL 2.3-4.7 Capillary blood glucose measurement by g lucometer (mass/volume) - 06/15/17 00:57 Capillary blood glucose measurement by glucometer (mas s/volume) 262 mg/dL 70-110 Capillary blood glucose measurement by g lucometer (mass/volume) - 06/15/17 02:03 Capillary blood glucose measurement by glucometer (mas s/volume) 219 mg/dL 70-110 Capillary blood glucose measurement by g lucometer (mass/volume) - 06/15/17 03:03 Capillary blood glucose measurement by glucometer (mas s/volume) 178 mg/dL 70-110 Capillary blood glucose measurement by g lucometer (mass/volume) - 06/15/17 03:57 Capillary blood glucose measurement by glucometer (mas s/volume) 172 mg/dL 70-110 Complete blood count (CBC) with automate d white blood cell (WBC) differential - 06/15/17 04:28 Blood leukocytes automated count (number/volume) 13.6 10*3/uL 4.3-11.0 Blood erythrocytes automated count (number/volume) 3.45 10*6/uL 4.35-5.85 Venous blood hemoglobin measurement (mass/volume) 9.3 g/dL 13.3-17.7 Blood hematocrit (volume fraction) 29 % 40-54 Automated erythrocyte mean corpuscular volume 83 [ foz_us] 80-99 Automated erythrocyte mean corpuscular h emoglobin (mass per erythrocyte) 27 pg 25-34 Automated erythrocyte mean corpuscular h emoglobin concentration measurement (mass/volume) 32 g/dL 32-36 Automated erythrocyte distribution width ratio 16. 2 % 10.0- 14.5 Automated blood platelet count (count/volume) 220 10*3/uL 130-400 Automated blood platelet mean volume measurement 9.6 [foz_us] 7.4-10.4 Automated blood neutrophils/100 leukocytes 91 % 42-75 Automated blood lymphocytes/100 leukocytes 4 % 12-44 Blood monocytes/100 leukocytes 6 % 0-12 Automated blood eosinophils/100 leukocytes 0 % 0-10 Automated blood basophils/100 leukocytes 0 % 0-10 Blood neutrophils automated count (number/volume) 12.3 10*3 1.8-7.8 Blood lymphocytes automated count (number/volume) 0.5 10*3 1.0-4.0 Blood monocytes automated count (number/volume) 0. 7 10*3 0.0-1.0 Automated eosinophil count 0.0 10*3/uL 0 .0-0.3 Automated blood basophil count (count/volume) 0.0 10*3/uL 0.0-0.1 Whole blood basic metabolic panel - 05/26 11/10 04:28 Serum or plasma sodium measurement (moles/volume) 140 mmol/L 135-145 Serum or plasma potassium measurement (moles/volume) 3.9 mmol/L 3.6-5.0 Serum or plasma chloride measurement (moles/volume) 106 mmol/L 98-107 Carbon dioxide 23 mmol/L 21-32 Serum or plasma anion gap determination (moles/volume) 11 mmol/L 5-14 Serum or plasma urea nitrogen measurement (mass/volume ) 25 mg/dL 7-18 Serum or plasma creatinine measurement (mass/volume) 1.02 mg/dL 0.60-1.30 Serum or plasma urea nitrogen/creatinine mass ratio 25 NRG Serum or plasma creatinine measurement w ith calculation of estimated glomerular filtration rate > NRG Serum or plasma glucose measurement (mass/volume) 147 mg/dL 70-105 Serum or plasma calcium measurement (mass/volume) 8.8 mg/dL 8.5-10.1 Serum or plasma phosphate measurement (m ass/volume) - 06/15/17 04:28 Serum or plasma phosphate measurement (mass/volume) 2.6 mg/dL 2.3-4.7 Magnesium - 06/15/17 04:28 Magnesium 2.1 mg/dL 1.8-2.4 Capillary blood glucose measurement by g lucometer (mass/volume) - 06/15/17 05:07 Capillary blood glucose measurement by glucometer (mas s/volume) 157 mg/dL 70-110 Capillary blood glucose measurement by g lucometer (mass/volume) - 06/15/17 05:54 Capillary blood glucose measurement by glucometer (mas s/volume) 142 mg/dL 70-110 Capillary blood glucose measurement by g lucometer (mass/volume) - 06/15/17 06:53 Capillary blood glucose measurement by glucometer (mas s/volume) 164 mg/dL 70-110 Capillary blood glucose measurement by g lucometer (mass/volume) - 06/15/17 08:01 Capillary blood glucose measurement by glucometer (mas s/volume) 195 mg/dL 70-110 Capillary blood glucose measurement by g lucometer (mass/volume) - 06/15/17 09:01 Capillary blood glucose measurement by glucometer (mas s/volume) 249 mg/dL 70-110 Capillary blood glucose measurement by g lucometer (mass/volume) - 06/15/17 10:26 Capillary blood glucose measurement by glucometer (mas s/volume) 232 mg/dL 70-110 Capillary blood glucose measurement by g lucometer (mass/volume) - 06/15/17 11:27 Capillary blood glucose measurement by glucometer (mas s/volume) 196 mg/dL 70-110 Capillary blood glucose measurement by g lucometer (mass/volume) - 06/15/17 12:37 Capillary blood glucose measurement by glucometer (mas s/volume) 189 mg/dL 70-110 Capillary blood glucose measurement by g lucometer (mass/volume) - 06/15/17 13:46 Capillary blood glucose measurement by glucometer (mas s/volume) 135 mg/dL 70-110 Capillary blood glucose measurement by g lucometer (mass/volume) - 06/15/17 14:20 Capillary blood glucose measurement by glucometer (mas s/volume) 103 mg/dL 70-110 Capillary blood glucose measurement by g lucometer (mass/volume) - 06/15/17 14:51 Capillary blood glucose measurement by glucometer (mas s/volume) 111 mg/dL 70-110 Capillary blood glucose measurement by g lucometer (mass/volume) - 06/15/17 17:42 Capillary blood glucose measurement by glucometer (mas s/volume) 336 mg/dL 70-110 Capillary blood glucose measurement by g lucometer (mass/volume) - 06/15/17 20:50 Capillary blood glucose measurement by glucometer (mas s/volume) 225 mg/dL 70-110 Whole blood basic metabolic panel - 05/26 12/08 05:23 Serum or plasma sodium measurement (moles/volume) 136 mmol/L 135-145 Serum or plasma potassium measurement (moles/volume) 4.9 mmol/L 3.6-5.0 Serum or plasma chloride measurement (moles/volume) 105 mmol/L 98-107 Carbon dioxide 23 mmol/L 21-32 Serum or plasma anion gap determination (moles/volume) 8 mmol/L 5-14 Serum or plasma urea nitrogen measurement (mass/volume ) 22 mg/dL 7-18 Serum or plasma creatinine measurement (mass/volume) 0.92 mg/dL 0.60-1.30 Serum or plasma urea nitrogen/creatinine mass ratio 24 NRG Serum or plasma creatinine measurement w ith calculation of estimated glomerular filtration rate > NRG Serum or plasma glucose measurement (mass/volume) 218 mg/dL 70-105 Serum or plasma calcium measurement (mass/volume) 8.2 mg/dL 8.5-10.1 Serum or plasma phosphate measurement (m ass/volume) - 06/16/17 05:23 Serum or plasma phosphate measurement (mass/volume) 2.8 mg/dL 2.3-4.7 Magnesium - 06/16/17 05:23 Magnesium 2.1 mg/dL 1.8-2.4 Complete blood count (CBC) with automate d white blood cell (WBC) differential - 06/16/17 05:33 Blood leukocytes automated count (number/volume) 11.0 10*3/uL 4.3-11.0 Blood erythrocytes automated count (number/volume) 3.28 10*6/uL 4.35-5.85 Venous blood hemoglobin measurement (mass/volume) 9.0 g/dL 13.3-17.7 Blood hematocrit (volume fraction) 28 % 40-54 Automated erythrocyte mean corpuscular volume 85 [ foz_us] 80-99 Automated erythrocyte mean corpuscular h emoglobin (mass per erythrocyte) 27 pg 25-34 Automated erythrocyte mean corpuscular h emoglobin concentration measurement (mass/volume) 33 g/dL 32-36 Automated erythrocyte distribution width ratio 16. 9 % 10.0- 14.5 Automated blood platelet count (count/volume) 217 10*3/uL 130-400 Automated blood platelet mean volume measurement 10.1 [foz_us] 7.4-10.4 Automated blood neutrophils/100 leukocytes 89 % 42-75 Automated blood lymphocytes/100 leukocytes 2 % 12-44 Blood monocytes/100 leukocytes 8 % 0-12 Automated blood eosinophils/100 leukocytes 0 % 0-10 Automated blood basophils/100 leukocytes 0 % 0-10 Blood neutrophils automated count (number/volume) 9.8 10*3 1.8-7.8 Blood lymphocytes automated count (number/volume) 0.3 10*3 1.0-4.0 Blood monocytes automated count (number/volume) 0. 9 10*3 0.0-1.0 Automated eosinophil count 0.0 10*3/uL 0 .0-0.3 Automated blood basophil count (count/volume) 0.0 10*3/uL 0.0-0.1 Capillary blood glucose measurement by g lucometer (mass/volume) - 06/16/17 05:35 Capillary blood glucose measurement by glucometer (mas s/volume) 225 mg/dL 70-110 Capillary blood glucose measurement by g lucometer (mass/volume) - 06/16/17 10:55 Capillary blood glucose measurement by glucometer (mas s/volume) 187 mg/dL 70-110 Complete blood count (CBC) with automate d white blood cell (WBC) differential - 06/17/17 23:27 Blood leukocytes automated count (number/volume) 16.1 10*3/uL 4.3-11.0 Blood erythrocytes automated count (number/volume) 4.04 10*6/uL 4.35-5.85 Venous blood hemoglobin measurement (mass/volume) 11.1 g/dL 13.3-17.7 Blood hematocrit (volume fraction) 34 % 40-54 Automated erythrocyte mean corpuscular volume 85 [ foz_us] 80-99 Automated erythrocyte mean corpuscular h emoglobin (mass per erythrocyte) 27 pg 25-34 Automated erythrocyte mean corpuscular h emoglobin concentration measurement (mass/volume) 32 g/dL 32-36 Automated erythrocyte distribution width ratio 17. 1 % 10.0- 14.5 Automated blood platelet count (count/volume) 308 10*3/uL 130-400 Automated blood platelet mean volume measurement 10.1 [foz_us] 7.4-10.4 Automated blood neutrophils/100 leukocytes 72 % 42-75 Automated blood lymphocytes/100 leukocytes 17 % 12-44 Blood monocytes/100 leukocytes 10 % 0-12 Automated blood eosinophils/100 leukocytes 0 % 0-10 Automated blood basophils/100 leukocytes 1 % 0-10 Blood neutrophils automated count (number/volume) 11.5 10*3 1.8-7.8 Blood lymphocytes automated count (number/volume) 2.8 10*3 1.0-4.0 Blood monocytes automated count (number/volume) 1. 6 10*3 0.0-1.0 Automated eosinophil count 0.0 10*3/uL 0 .0-0.3 Automated blood basophil count (count/volume) 0.1 10*3/uL 0.0-0.1 Blood lactic acid measurement (moles/vol ume) - 06/17/17 23:27 Blood lactic acid measurement (moles/volume) 8.22 mmol/L 0.50-2.00 Comprehensive metabolic panel - 06/17/17 23:27 Serum or plasma sodium measurement (moles/volume) 136 mmol/L 135-145 Serum or plasma potassium measurement (moles/volume) 4.2 mmol/L 3.6-5.0 Serum or plasma chloride measurement (moles/volume) 97 mmol/L 98-107 Carbon dioxide 21 mmol/L 21-32 Serum or plasma anion gap determination (moles/volume) 18 mmol/L 5-14 Serum or plasma urea nitrogen measurement (mass/volume ) 19 mg/dL 7-18 Serum or plasma creatinine measurement (mass/volume) 1.29 mg/dL 0.60-1.30 Serum or plasma urea nitrogen/creatinine mass ratio 15 NRG Serum or plasma creatinine measurement w ith calculation of estimated glomerular filtration rate 54 NRG Serum or plasma glucose measurement (mass/volume) 358 mg/dL 70-105 Serum or plasma calcium measurement (mass/volume) 9.3 mg/dL 8.5-10.1 Serum or plasma total bilirubin measurement (mass/volu me) 0.8 mg/dL 0.1-1.0 Serum or plasma alkaline phosphatase sergio surement (enzymatic activity/volume) 65 U/L 40-136 Serum or plasma aspartate aminotransfera se measurement (enzymatic activity/volume) 16 U/L 5-34 Serum or plasma alanine aminotransferase measurement (enzymatic activity/volume) 23 U/L 0-55 Serum or plasma protein measurement (mass/volume) 6.9 g/dL 6.4-8.2 Serum or plasma albumin measurement (mass/volume) 3.9 g/dL 3.2-4.5 Magnesium - 06/17/17 23:27 Magnesium 2.2 mg/dL 1.8-2.4 Serum or plasma C reactive protein measu rement (mass/volume) - 06/17/17 23:27 Serum or plasma C reactive protein measurement (mass/v olume) 8.48 mg/dL 0.00-0.50 Serum or plasma troponin i.cardiac measu rement (mass/volume) - 06/17/17 23:27 Serum or plasma troponin i.cardiac measurement (mass/v olume) < ng/mL <0.30 Blood manual differential performed dete ction - 06/17/17 23:27 Blood monocytes/100 leukocytes 9 % NRG Manual blood segmented neutrophils/100 leukocytes 62 % NRG Blood band neutrophils/100 leukocytes 9 % NRG Manual blood lymphocytes/100 leukocytes 15 % NRG Blood erythrocyte morphology finding identification NORMAL NRG Manual blood metamyelocytes/100 leukocytes 5 % NRG Manual blood nucleated erythrocytes/100 leukocytes ratio 1 NRG Bacterial blood culture - 06/17/17 23:27 Bacterial blood culture NG NRG Bacterial blood culture - 06/17/17 23:51 Bacterial blood culture NG NRG Arterial blood gas measurement - 7 00:12 Blood pCO2 42 mm[Hg] 35-45 Blood pO2 200 mm[Hg] 79-93 Arterial blood bicarbonate measurement (moles/volume) 27 mmol/L 23-27 Arterial blood base excess by calculation 2.6 mmol /L -2.5-2.5 Arterial blood oxygen saturation measurement 100 % 94-100 * Inhaled oxygen flow rate 80% NRG Arterial blood pH measurement with patient temperature correction 7.42 7.37-7.43 Arterial blood carbon dioxide, total measurement (mole s/volume) 28.3 mmol/L 21.0-31.0 Body site LEFT RADIAL NRG Assessment of wrist artery patency prior to arterial p uncture YES-POS NRG Setting of ventilation mode NO NR G Measurement of body temperature 96.9 NRG Serum or plasma lactate measurement (mol es/volume) - 06/18/17 01:44 Serum or plasma lactate measurement (moles/volume) 1.30 mmol/L 0.50-2.00 Arterial blood gas measurement - 7 04:48 Blood pCO2 46 mm[Hg] 35-45 Blood pO2 125 mm[Hg] 79-93 Arterial blood bicarbonate measurement (moles/volume) 28 mmol/L 23-27 Arterial blood base excess by calculation 3.5 mmol /L -2.5-2.5 Arterial blood oxygen saturation measurement 99 % 94-100 * Inhaled oxygen flow rate 50% NRG Arterial blood pH measurement with patient temperature correction 7.40 7.37-7.43 Arterial blood carbon dioxide, total measurement (mole s/volume) 29.5 mmol/L 21.0-31.0 Body site LEFT RADIAL NRG Assessment of wrist artery patency prior to arterial p uncture YES-POS NRG Setting of ventilation mode NO NR G Measurement of body temperature 98.0 NRG Complete blood count (CBC) with automate d white blood cell (WBC) differential - 06/18/17 04:48 Blood leukocytes automated count (number/volume) 11.1 10*3/uL 4.3-11.0 Blood erythrocytes automated count (number/volume) 3.53 10*6/uL 4.35-5.85 Venous blood hemoglobin measurement (mass/volume) 9.6 g/dL 13.3-17.7 Blood hematocrit (volume fraction) 30 % 40-54 Automated erythrocyte mean corpuscular volume 84 [ foz_us] 80-99 Automated erythrocyte mean corpuscular h emoglobin (mass per erythrocyte) 27 pg 25-34 Automated erythrocyte mean corpuscular h emoglobin concentration measurement (mass/volume) 32 g/dL 32-36 Automated erythrocyte distribution width ratio 17. 2 % 10.0- 14.5 Automated blood platelet count (count/volume) 207 10*3/uL 130-400 Automated blood platelet mean volume measurement 9.9 [foz_us] 7.4-10.4 Automated blood neutrophils/100 leukocytes 88 % 42-75 Automated blood lymphocytes/100 leukocytes 4 % 12-44 Blood monocytes/100 leukocytes 8 % 0-12 Automated blood eosinophils/100 leukocytes 0 % 0-10 Automated blood basophils/100 leukocytes 0 % 0-10 Blood neutrophils automated count (number/volume) 9.8 10*3 1.8-7.8 Blood lymphocytes automated count (number/volume) 0.4 10*3 1.0-4.0 Blood monocytes automated count (number/volume) 0. 9 10*3 0.0-1.0 Automated eosinophil count 0.0 10*3/uL 0 .0-0.3 Automated blood basophil count (count/volume) 0.0 10*3/uL 0.0-0.1 Comprehensive metabolic panel - 06/18/17 04:48 Serum or plasma sodium measurement (moles/volume) 135 mmol/L 135-145 Serum or plasma potassium measurement (moles/volume) 4.5 mmol/L 3.6-5.0 Serum or plasma chloride measurement (moles/volume) 100 mmol/L 98-107 Carbon dioxide 26 mmol/L 21-32 Serum or plasma anion gap determination (moles/volume) 9 mmol/L 5-14 Serum or plasma urea nitrogen measurement (mass/volume ) 20 mg/dL 7-18 Serum or plasma creatinine measurement (mass/volume) 1.09 mg/dL 0.60-1.30 Serum or plasma urea nitrogen/creatinine mass ratio 18 NRG Serum or plasma creatinine measurement w ith calculation of estimated glomerular filtration rate > NRG Serum or plasma glucose measurement (mass/volume) 274 mg/dL 70-105 Serum or plasma calcium measurement (mass/volume) 8.3 mg/dL 8.5-10.1 Serum or plasma total bilirubin measurement (mass/volu me) 0.8 mg/dL 0.1-1.0 Serum or plasma alkaline phosphatase sergio surement (enzymatic activity/volume) 49 U/L 40-136 Serum or plasma aspartate aminotransfera se measurement (enzymatic activity/volume) 43 U/L 5-34 Serum or plasma alanine aminotransferase measurement (enzymatic activity/volume) 25 U/L 0-55 Serum or plasma protein measurement (mass/volume) 5.9 g/dL 6.4-8.2 Serum or plasma albumin measurement (mass/volume) 3.4 g/dL 3.2-4.5 Serum or plasma phosphate measurement (m ass/volume) - 06/18/17 04:48 Serum or plasma phosphate measurement (mass/volume) 3.2 mg/dL 2.3-4.7 Magnesium - 06/18/17 04:48 Magnesium 1.9 mg/dL 1.8-2.4 Capillary blood glucose measurement by g lucometer (mass/volume) - 06/18/17 05:17 Capillary blood glucose measurement by glucometer (mas s/volume) 261 mg/dL 70-110 Blood lactic acid measurement (moles/vol ume) - 06/18/17 06:52 Blood lactic acid measurement (moles/volume) 1.25 mmol/L 0.50-2.00 Complete urinalysis with reflex to cultu re - 06/18/17 07:00 Urine color determination YELLOW NRG Urine clarity determination CLEAR NR G Urine pH measurement by test strip 5 5-9 Specific gravity of urine by test strip 1.015 1.016-1.022 Urine protein assay by test strip, semi-quantitative 2+ NEGATIVE Urine glucose detection by automated test strip 4+ NEGATIVE Erythrocytes detection in urine sediment by light micr oscopy NEGATIVE NEGATIVE Urine ketones detection by automated test strip 2+ NEGATIVE Urine nitrite detection by test strip NEGATIVE NEGATIVE Urine total bilirubin detection by test strip NEGA TIVE NEGATIVE Urine urobilinogen measurement by automated test strip (mass/volume) NORMAL NORMAL Urine leukocyte esterase detection by dipstick NEG ATIVE NEGATIVE Automated urine sediment erythrocyte cou nt by microscopy (number/high power field) NONE NRG Automated urine sediment leukocyte count by microscopy (number/high power field) RARE NRG Bacteria detection in urine sediment by light microsco py NEGATIVE NRG Squamous epithelial cells detection in u rine sediment by light microscopy NONE NRG Crystals detection in urine sediment by light microsco py NONE NRG Casts detection in urine sediment by light microscopy NONE NRG Mucus detection in urine sediment by light microscopy NEGATIVE NRG Complete urinalysis with reflex to culture NO NRG Capillary blood glucose measurement by g lucometer (mass/volume) - 06/18/17 10:31 Capillary blood glucose measurement by glucometer (mas s/volume) 380 mg/dL 70-110 Capillary blood glucose measurement by g lucometer (mass/volume) - 06/18/17 14:58 Capillary blood glucose measurement by glucometer (mas s/volume) 345 mg/dL 70-110 Capillary blood glucose measurement by g lucometer (mass/volume) - 06/18/17 19:22 Capillary blood glucose measurement by glucometer (mas s/volume) 333 mg/dL 70-110 Capillary blood glucose measurement by g lucometer (mass/volume) - 06/19/17 00:20 Capillary blood glucose measurement by glucometer (mas s/volume) 253 mg/dL 70-110 Capillary blood glucose measurement by g lucometer (mass/volume) - 06/19/17 04:56 Capillary blood glucose measurement by glucometer (mas s/volume) 139 mg/dL 70-110 Complete blood count (CBC) with automate d white blood cell (WBC) differential - 06/19/17 04:57 Blood leukocytes automated count (number/volume) 9.2 10*3/uL 4.3-11.0 Blood erythrocytes automated count (number/volume) 3.26 10*6/uL 4.35-5.85 Venous blood hemoglobin measurement (mass/volume) 8.8 g/dL 13.3-17.7 Blood hematocrit (volume fraction) 28 % 40-54 Automated erythrocyte mean corpuscular volume 85 [ foz_us] 80-99 Automated erythrocyte mean corpuscular h emoglobin (mass per erythrocyte) 27 pg 25-34 Automated erythrocyte mean corpuscular h emoglobin concentration measurement (mass/volume) 32 g/dL 32-36 Automated erythrocyte distribution width ratio 16. 6 % 10.0- 14.5 Automated blood platelet count (count/volume) 215 10*3/uL 130-400 Automated blood platelet mean volume measurement 10.3 [foz_us] 7.4-10.4 Automated blood neutrophils/100 leukocytes 90 % 42-75 Automated blood lymphocytes/100 leukocytes 3 % 12-44 Blood monocytes/100 leukocytes 7 % 0-12 Automated blood eosinophils/100 leukocytes 0 % 0-10 Automated blood basophils/100 leukocytes 0 % 0-10 Blood neutrophils automated count (number/volume) 8.2 10*3 1.8-7.8 Blood lymphocytes automated count (number/volume) 0.3 10*3 1.0-4.0 Blood monocytes automated count (number/volume) 0. 6 10*3 0.0-1.0 Automated eosinophil count 0.0 10*3/uL 0 .0-0.3 Automated blood basophil count (count/volume) 0.0 10*3/uL 0.0-0.1 Serum or plasma lithium measurement (mol es/volume) - 06/19/17 04:57 BNP level 373.3 pg/mL <100.0 Whole blood basic metabolic panel - 05/26 03/10 05:15 Serum or plasma sodium measurement (moles/volume) 140 mmol/L 135-145 Serum or plasma potassium measurement (moles/volume) 3.9 mmol/L 3.6-5.0 Serum or plasma chloride measurement (moles/volume) 104 mmol/L 98-107 Carbon dioxide 27 mmol/L 21-32 Serum or plasma anion gap determination (moles/volume) 9 mmol/L 5-14 Serum or plasma urea nitrogen measurement (mass/volume ) 21 mg/dL 7-18 Serum or plasma creatinine measurement (mass/volume) 0.92 mg/dL 0.60-1.30 Serum or plasma urea nitrogen/creatinine mass ratio 23 NRG Serum or plasma creatinine measurement w ith calculation of estimated glomerular filtration rate > NRG Serum or plasma glucose measurement (mass/volume) 129 mg/dL 70-105 Serum or plasma calcium measurement (mass/volume) 8.3 mg/dL 8.5-10.1 Serum or plasma phosphate measurement (m ass/volume) - 06/19/17 05:15 Serum or plasma phosphate measurement (mass/volume) 3.0 mg/dL 2.3-4.7 Magnesium - 06/19/17 05:15 Magnesium 2.3 mg/dL 1.8-2.4 Capillary blood glucose measurement by g lucometer (mass/volume) - 06/19/17 10:47 Capillary blood glucose measurement by glucometer (mas s/volume) 317 mg/dL 70-110 Vancomycin trough - 06/19/17 11:05 Vancomycin trough 14.3 ug/mL 10.0-20.0 Capillary blood glucose measurement by g lucometer (mass/volume) - 06/19/17 15:53 Capillary blood glucose measurement by glucometer (mas s/volume) 181 mg/dL 70-110 Capillary blood glucose measurement by g lucometer (mass/volume) - 06/19/17 20:00 Capillary blood glucose measurement by glucometer (mas s/volume) 344 mg/dL 70-110 Capillary blood glucose measurement by g lucometer (mass/volume) - 06/20/17 05:17 Capillary blood glucose measurement by glucometer (mas s/volume) 217 mg/dL 70-110 Automated blood complete blood count (he mogram) panel - 06/20/17 07:50 Blood leukocytes automated count (number/volume) 8.0 10*3/uL 4.3-11.0 Blood erythrocytes automated count (number/volume) 3.37 10*6/uL 4.35-5.85 Venous blood hemoglobin measurement (mass/volume) 9.1 g/dL 13.3-17.7 Blood hematocrit (volume fraction) 29 % 40-54 Automated erythrocyte mean corpuscular volume 86 [ foz_us] 80-99 Automated erythrocyte mean corpuscular h emoglobin (mass per erythrocyte) 27 pg 25-34 Automated erythrocyte mean corpuscular h emoglobin concentration measurement (mass/volume) 32 g/dL 32-36 Automated erythrocyte distribution width ratio 17. 1 % 10.0- 14.5 Automated blood platelet count (count/volume) 207 10*3/uL 130-400 Automated blood platelet mean volume measurement 10.1 [foz_us] 7.4-10.4 Whole blood basic metabolic panel - 05/26 04/09 07:50 Serum or plasma sodium measurement (moles/volume) 137 mmol/L 135-145 Serum or plasma potassium measurement (moles/volume) 4.5 mmol/L 3.6-5.0 Serum or plasma chloride measurement (moles/volume) 102 mmol/L 98-107 Carbon dioxide 26 mmol/L 21-32 Serum or plasma anion gap determination (moles/volume) 9 mmol/L 5-14 Serum or plasma urea nitrogen measurement (mass/volume ) 26 mg/dL 7-18 Serum or plasma creatinine measurement (mass/volume) 0.92 mg/dL 0.60-1.30 Serum or plasma urea nitrogen/creatinine mass ratio 28 NRG Serum or plasma creatinine measurement w ith calculation of estimated glomerular filtration rate > NRG Serum or plasma glucose measurement (mass/volume) 251 mg/dL 70-105 Serum or plasma calcium measurement (mass/volume) 8.5 mg/dL 8.5-10.1 Serum or plasma lithium measurement (mol es/volume) - 06/20/17 07:50 BNP level 312.3 pg/mL <100.0 Capillary blood glucose measurement by g lucometer (mass/volume) - 06/20/17 11:46 Capillary blood glucose measurement by glucometer (mas s/volume) 224 mg/dL 70-110 Capillary blood glucose measurement by g lucometer (mass/volume) - 06/20/17 16:02 Capillary blood glucose measurement by glucometer (mas s/volume) 164 mg/dL 70-110 Capillary blood glucose measurement by g lucometer (mass/volume) - 06/20/17 20:37 Capillary blood glucose measurement by glucometer (mas s/volume) 317 mg/dL 70-110 Complete blood count (CBC) with automate d white blood cell (WBC) differential - 06/21/17 05:25 Blood leukocytes automated count (number/volume) 7.4 10*3/uL 4.3-11.0 Blood erythrocytes automated count (number/volume) 3.72 10*6/uL 4.35-5.85 Venous blood hemoglobin measurement (mass/volume) 10.0 g/dL 13.3-17.7 Blood hematocrit (volume fraction) 32 % 40-54 Automated erythrocyte mean corpuscular volume 85 [ foz_us] 80-99 Automated erythrocyte mean corpuscular h emoglobin (mass per erythrocyte) 27 pg 25-34 Automated erythrocyte mean corpuscular h emoglobin concentration measurement (mass/volume) 32 g/dL 32-36 Automated erythrocyte distribution width ratio 16. 6 % 10.0- 14.5 Automated blood platelet count (count/volume) 216 10*3/uL 130-400 Automated blood platelet mean volume measurement 9.8 [foz_us] 7.4-10.4 Automated blood neutrophils/100 leukocytes 81 % 42-75 Automated blood lymphocytes/100 leukocytes 6 % 12-44 Blood monocytes/100 leukocytes 12 % 0-12 Automated blood eosinophils/100 leukocytes 0 % 0-10 Automated blood basophils/100 leukocytes 0 % 0-10 Blood neutrophils automated count (number/volume) 6.0 10*3 1.8-7.8 Blood lymphocytes automated count (number/volume) 0.5 10*3 1.0-4.0 Blood monocytes automated count (number/volume) 0. 9 10*3 0.0-1.0 Automated eosinophil count 0.0 10*3/uL 0 .0-0.3 Automated blood basophil count (count/volume) 0.0 10*3/uL 0.0-0.1 Whole blood basic metabolic panel - 05/26 05/10 05:25 Serum or plasma sodium measurement (moles/volume) 140 mmol/L 135-145 Serum or plasma potassium measurement (moles/volume) 4.1 mmol/L 3.6-5.0 Serum or plasma chloride measurement (moles/volume) 101 mmol/L 98-107 Carbon dioxide 27 mmol/L 21-32 Serum or plasma anion gap determination (moles/volume) 12 mmol/L 5-14 Serum or plasma urea nitrogen measurement (mass/volume ) 25 mg/dL 7-18 Serum or plasma creatinine measurement (mass/volume) 0.85 mg/dL 0.60-1.30 Serum or plasma urea nitrogen/creatinine mass ratio 29 NRG Serum or plasma creatinine measurement w ith calculation of estimated glomerular filtration rate > NRG Serum or plasma glucose measurement (mass/volume) 140 mg/dL 70-105 Serum or plasma calcium measurement (mass/volume) 9.2 mg/dL 8.5-10.1 Serum or plasma lithium measurement (mol es/volume) - 06/21/17 05:25 BNP level 251.3 pg/mL <100.0 Capillary blood glucose measurement by g lucometer (mass/volume) - 06/21/17 10:53 Capillary blood glucose measurement by glucometer (mas s/volume) 203 mg/dL 70-110 Complete blood count (CBC) with automate d white blood cell (WBC) differential - 10/15/17 14:40 Blood leukocytes automated count (number/volume) 6.3 10*3/uL 4.3-11.0 Blood erythrocytes automated count (number/volume) 4.13 10*6/uL 4.35-5.85 Venous blood hemoglobin measurement (mass/volume) 12.0 g/dL 13.3-17.7 Blood hematocrit (volume fraction) 36 % 40-54 Automated erythrocyte mean corpuscular volume 87 [ foz_us] 80-99 Automated erythrocyte mean corpuscular h emoglobin (mass per erythrocyte) 29 pg 25-34 Automated erythrocyte mean corpuscular h emoglobin concentration measurement (mass/volume) 33 g/dL 32-36 Automated erythrocyte distribution width ratio 14. 0 % 10.0- 14.5 Automated blood platelet count (count/volume) 202 10*3/uL 130-400 Automated blood platelet mean volume measurement 9.6 [foz_us] 7.4-10.4 Automated blood neutrophils/100 leukocytes 70 % 42-75 Automated blood lymphocytes/100 leukocytes 16 % 12-44 Blood monocytes/100 leukocytes 11 % 0-12 Automated blood eosinophils/100 leukocytes 3 % 0-10 Automated blood basophils/100 leukocytes 1 % 0-10 Blood neutrophils automated count (number/volume) 4.4 10*3 1.8-7.8 Blood lymphocytes automated count (number/volume) 1.0 10*3 1.0-4.0 Blood monocytes automated count (number/volume) 0. 7 10*3 0.0-1.0 Automated eosinophil count 0.2 10*3/uL 0 .0-0.3 Automated blood basophil count (count/volume) 0.0 10*3/uL 0.0-0.1 Comprehensive metabolic panel - 10/15/17 14:40 Serum or plasma sodium measurement (moles/volume) 139 mmol/L 135-145 Serum or plasma potassium measurement (moles/volume) 4.5 mmol/L 3.6-5.0 Serum or plasma chloride measurement (moles/volume) 100 mmol/L 98-107 Carbon dioxide 25 mmol/L 21-32 Serum or plasma anion gap determination (moles/volume) 14 mmol/L 5-14 Serum or plasma urea nitrogen measurement (mass/volume ) 21 mg/dL 7-18 Serum or plasma creatinine measurement (mass/volume) 1.20 mg/dL 0.60-1.30 Serum or plasma urea nitrogen/creatinine mass ratio 18 NRG Serum or plasma creatinine measurement w ith calculation of estimated glomerular filtration rate 59 NRG Serum or plasma glucose measurement (mass/volume) 201 mg/dL 70-105 Serum or plasma calcium measurement (mass/volume) 9.9 mg/dL 8.5-10.1 Serum or plasma total bilirubin measurement (mass/volu me) 0.5 mg/dL 0.1-1.0 Serum or plasma alkaline phosphatase sergio surement (enzymatic activity/volume) 58 U/L 40-136 Serum or plasma aspartate aminotransfera se measurement (enzymatic activity/volume) 17 U/L 5-34 Serum or plasma alanine aminotransferase measurement (enzymatic activity/volume) 16 U/L 0-55 Serum or plasma protein measurement (mass/volume) 7.5 g/dL 6.4-8.2 Serum or plasma albumin measurement (mass/volume) 4.4 g/dL 3.2-4.5 Complete blood count (CBC) with automate d white blood cell (WBC) differential - 12/26/17 19:02 Blood leukocytes automated count (number/volume) 7.9 10*3/uL 4.3-11.0 Blood erythrocytes automated count (number/volume) 4.28 10*6/uL 4.35-5.85 Venous blood hemoglobin measurement (mass/volume) 12.6 g/dL 13.3-17.7 Blood hematocrit (volume fraction) 37 % 40-54 Automated erythrocyte mean corpuscular volume 87 [ foz_us] 80-99 Automated erythrocyte mean corpuscular h emoglobin (mass per erythrocyte) 29 pg 25-34 Automated erythrocyte mean corpuscular h emoglobin concentration measurement (mass/volume) 34 g/dL 32-36 Automated erythrocyte distribution width ratio 14. 7 % 10.0- 14.5 Automated blood platelet count (count/volume) 199 10*3/uL 130-400 Automated blood platelet mean volume measurement 9.8 [foz_us] 7.4-10.4 Automated blood neutrophils/100 leukocytes 76 % 42-75 Automated blood lymphocytes/100 leukocytes 15 % 12-44 Blood monocytes/100 leukocytes 7 % 0-12 Automated blood eosinophils/100 leukocytes 1 % 0-10 Automated blood basophils/100 leukocytes 1 % 0-10 Blood neutrophils automated count (number/volume) 6.0 10*3 1.8-7.8 Blood lymphocytes automated count (number/volume) 1.2 10*3 1.0-4.0 Blood monocytes automated count (number/volume) 0. 6 10*3 0.0-1.0 Automated eosinophil count 0.1 10*3/uL 0 .0-0.3 Automated blood basophil count (count/volume) 0.0 10*3/uL 0.0-0.1 Comprehensive metabolic panel - 12/26/17 19:02 Serum or plasma sodium measurement (moles/volume) 139 mmol/L 135-145 Serum or plasma potassium measurement (moles/volume) 4.1 mmol/L 3.6-5.0 Serum or plasma chloride measurement (moles/volume) 105 mmol/L 98-107 Carbon dioxide 24 mmol/L 21-32 Serum or plasma anion gap determination (moles/volume) 10 mmol/L 5-14 Serum or plasma urea nitrogen measurement (mass/volume ) 32 mg/dL 7-18 Serum or plasma creatinine measurement (mass/volume) 1.33 mg/dL 0.60-1.30 Serum or plasma urea nitrogen/creatinine mass ratio 24 NRG Serum or plasma creatinine measurement w ith calculation of estimated glomerular filtration rate 52 NRG Serum or plasma glucose measurement (mass/volume) 262 mg/dL 70-105 Serum or plasma calcium measurement (mass/volume) 9.2 mg/dL 8.5-10.1 Serum or plasma total bilirubin measurement (mass/volu me) 0.3 mg/dL 0.1-1.0 Serum or plasma alkaline phosphatase sergio surement (enzymatic activity/volume) 57 U/L 40-136 Serum or plasma aspartate aminotransfera se measurement (enzymatic activity/volume) 15 U/L 5-34 Serum or plasma alanine aminotransferase measurement (enzymatic activity/volume) 19 U/L 0-55 Serum or plasma protein measurement (mass/volume) 7.0 g/dL 6.4-8.2 Serum or plasma albumin measurement (mass/volume) 4.4 g/dL 3.2-4.5 Serum or plasma lithium measurement (mol es/volume) - 12/26/17 19:02 BNP level 25.3 pg/mL <100.0 Complete blood count (CBC) with automate d white blood cell (WBC) differential - 04/18/18 23:15 Blood leukocytes automated count (number/volume) 5.8 10*3/uL 4.3-11.0 Blood erythrocytes automated count (number/volume) 3.91 10*6/uL 4.35-5.85 Venous blood hemoglobin measurement (mass/volume) 12.0 g/dL 13.3-17.7 Blood hematocrit (volume fraction) 35 % 40-54 Automated erythrocyte mean corpuscular volume 89 [ foz_us] 80-99 Automated erythrocyte mean corpuscular h emoglobin (mass per erythrocyte) 31 pg 25-34 Automated erythrocyte mean corpuscular h emoglobin concentration measurement (mass/volume) 35 g/dL 32-36 Automated erythrocyte distribution width ratio 13. 5 % 10.0- 14.5 Automated blood platelet count (count/volume) 177 10*3/uL 130-400 Automated blood platelet mean volume measurement 9.8 [foz_us] 7.4-10.4 Automated blood neutrophils/100 leukocytes 71 % 42-75 Automated blood lymphocytes/100 leukocytes 13 % 12-44 Blood monocytes/100 leukocytes 12 % 0-12 Automated blood eosinophils/100 leukocytes 3 % 0-10 Automated blood basophils/100 leukocytes 1 % 0-10 Blood neutrophils automated count (number/volume) 4.1 10*3 1.8-7.8 Blood lymphocytes automated count (number/volume) 0.8 10*3 1.0-4.0 Blood monocytes automated count (number/volume) 0. 7 10*3 0.0-1.0 Automated eosinophil count 0.2 10*3/uL 0 .0-0.3 Automated blood basophil count (count/volume) 0.0 10*3/uL 0.0-0.1 PT panel in platelet poor plasma by coag ulation assay - 04/18/18 23:15 Prothrombin time (PT) in platelet poor plasma by coagu lation assay 13.2 s 12.2-14.7 INR in platelet poor plasma or blood by coagulation as say 1.0 0.8-1.4 Activated partial thromboplastin time (a PTT) in platelet poor plasma bycoagulation assay - 04/18/18 23:15 Activated partial thromboplastin time (a PTT) in platelet poor plasma bycoagulation assay 24 s 24-35 Comprehensive metabolic panel - 04/18/18 23:15 Serum or plasma sodium measurement (moles/volume) 138 mmol/L 135-145 Serum or plasma potassium measurement (moles/volume) 4.2 mmol/L 3.6-5.0 Serum or plasma chloride measurement (moles/volume) 103 mmol/L 98-107 Carbon dioxide 25 mmol/L 21-32 Serum or plasma anion gap determination (moles/volume) 10 mmol/L 5-14 Serum or plasma urea nitrogen measurement (mass/volume ) 27 mg/dL 7-18 Serum or plasma creatinine measurement (mass/volume) 1.56 mg/dL 0.60-1.30 Serum or plasma urea nitrogen/creatinine mass ratio 17 NRG Serum or plasma creatinine measurement w ith calculation of estimated glomerular filtration rate 43 NRG Serum or plasma glucose measurement (mass/volume) 246 mg/dL 70-105 Serum or plasma calcium measurement (mass/volume) 9.4 mg/dL 8.5-10.1 Serum or plasma total bilirubin measurement (mass/volu me) 0.4 mg/dL 0.1-1.0 Serum or plasma alkaline phosphatase sergio surement (enzymatic activity/volume) 65 U/L 40-136 Serum or plasma aspartate aminotransfera se measurement (enzymatic activity/volume) 18 U/L 5-34 Serum or plasma alanine aminotransferase measurement (enzymatic activity/volume) 15 U/L 0-55 Serum or plasma protein measurement (mass/volume) 6.8 g/dL 6.4-8.2 Serum or plasma albumin measurement (mass/volume) 4.4 g/dL 3.2-4.5 Magnesium - 04/18/18 23:15 Magnesium 2.2 mg/dL 1.8-2.4 Myoglobin, serum - 04/18/18 23:15 Myoglobin, serum 89.3 ng/mL 10.0-92.0 Serum or plasma troponin i.cardiac measu rement (mass/volume) - 04/18/18 23:15 Serum or plasma troponin i.cardiac measurement (mass/v olume) < ng/mL <0.30 Serum or plasma lithium measurement (mol es/volume) - 04/18/18 23:15 BNP level 10.7 pg/mL <100.0 Myoglobin, serum - 04/18/18 23:15 Myoglobin, serum 89.3 ng/mL 10.0-92.0 Blood lactic acid measurement (moles/vol ume) - 04/18/18 23:49 Blood lactic acid measurement (moles/volume) 2.01 mmol/L 0.50-2.00 Bacterial blood culture - 04/18/18 23:49 QUANTITY OF GROWTH . [facility] Bacterial blood culture SEE [facility] Bacterial blood culture - 04/19/18 00:20 Bacterial blood culture [facility] Serum or plasma lactate measurement (mol es/volume) - 04/19/18 01:50 Serum or plasma lactate measurement (moles/volume) 3.14 mmol/L 0.50-2.00 Capillary blood glucose measurement by g lucometer (mass/volume) - 04/19/18 05:12 Capillary blood glucose measurement by glucometer (mas s/volume) 392 mg/dL 70-110 Complete blood count (CBC) with automate d white blood cell (WBC) differential - 04/19/18 06:08 Blood leukocytes automated count (number/volume) 5.8 10*3/uL 4.3-11.0 Blood erythrocytes automated count (number/volume) 4.04 10*6/uL 4.35-5.85 Venous blood hemoglobin measurement (mass/volume) 11.8 g/dL 13.3-17.7 Blood hematocrit (volume fraction) 36 % 40-54 Automated erythrocyte mean corpuscular volume 89 [ foz_us] 80-99 Automated erythrocyte mean corpuscular h emoglobin (mass per erythrocyte) 29 pg 25-34 Automated erythrocyte mean corpuscular h emoglobin concentration measurement (mass/volume) 33 g/dL 32-36 Automated erythrocyte distribution width ratio 13. 7 % 10.0- 14.5 Automated blood platelet count (count/volume) 177 10*3/uL 130-400 Automated blood platelet mean volume measurement 10.1 [foz_us] 7.4-10.4 Automated blood neutrophils/100 leukocytes 93 % 42-75 Automated blood lymphocytes/100 leukocytes 4 % 12-44 Blood monocytes/100 leukocytes 2 % 0-12 Automated blood eosinophils/100 leukocytes 0 % 0-10 Automated blood basophils/100 leukocytes 0 % 0-10 Blood neutrophils automated count (number/volume) 5.4 10*3 1.8-7.8 Blood lymphocytes automated count (number/volume) 0.2 10*3 1.0-4.0 Blood monocytes automated count (number/volume) 0. 1 10*3 0.0-1.0 Automated eosinophil count 0.0 10*3/uL 0 .0-0.3 Automated blood basophil count (count/volume) 0.0 10*3/uL 0.0-0.1 Blood manual differential performed dete ction - 04/19/18 06:08 Blood monocytes/100 leukocytes 3 % NRG Manual blood segmented neutrophils/100 leukocytes 94 % NRG Blood band neutrophils/100 leukocytes 0 % NRG Manual blood lymphocytes/100 leukocytes 2 % NRG Manual eosinophils/100 leukocytes in nose 0 % NRG Manual blood basophils/100 leukocytes 1 % NRG Blood erythrocyte morphology finding identification NORMAL [facility] Comprehensive metabolic panel - 04/19/18 06:08 Serum or plasma sodium measurement (moles/volume) 138 mmol/L 135-145 Serum or plasma potassium measurement (moles/volume) 4.4 mmol/L 3.6-5.0 Serum or plasma chloride measurement (moles/volume) 103 mmol/L 98-107 Carbon dioxide 20 mmol/L 21-32 Serum or plasma anion gap determination (moles/volume) 15 mmol/L 5-14 Serum or plasma urea nitrogen measurement (mass/volume ) 28 mg/dL 7-18 Serum or plasma creatinine measurement (mass/volume) 1.46 mg/dL 0.60-1.30 Serum or plasma urea nitrogen/creatinine mass ratio 19 NRG Serum or plasma creatinine measurement w ith calculation of estimated glomerular filtration rate 47 NRG Serum or plasma glucose measurement (mass/volume) 375 mg/dL 70-105 Serum or plasma calcium measurement (mass/volume) 9.6 mg/dL 8.5-10.1 Serum or plasma total bilirubin measurement (mass/volu me) 0.4 mg/dL 0.1-1.0 Serum or plasma alkaline phosphatase sergio surement (enzymatic activity/volume) 65 U/L 40-136 Serum or plasma aspartate aminotransfera se measurement (enzymatic activity/volume) 17 U/L 5-34 Serum or plasma alanine aminotransferase measurement (enzymatic activity/volume) 16 U/L 0-55 Serum or plasma protein measurement (mass/volume) 6.7 g/dL 6.4-8.2 Serum or plasma albumin measurement (mass/volume) 4.5 g/dL 3.2-4.5 Lipid 1996 panel - 04/19/18 06:08 Serum or plasma triglyceride measurement (mass/volume) 133 mg/dL <150 Serum or plasma cholesterol measurement (mass/volume) 133 mg/dL < 200 Serum or plasma cholesterol in HDL measurement (mass/v olume) 36 mg/dL 40-60 Cholesterol in LDL [mass/volume] in serum or plasma by direct assay 70 mg/dL 1-129 Serum or plasma cholesterol in VLDL measurement (mass/ volume) 27 mg/dL 5-40 Capillary blood glucose measurement by g lucometer (mass/volume) - 04/19/18 10:47 Capillary blood glucose measurement by glucometer (mas s/volume) 323 mg/dL 70-110 Capillary blood glucose measurement by g lucometer (mass/volume) - 04/19/18 15:37 Capillary blood glucose measurement by glucometer (mas s/volume) 409 mg/dL 70-110 Capillary blood glucose measurement by g lucometer (mass/volume) - 04/19/18 20:04 Capillary blood glucose measurement by glucometer (mas s/volume) 320 mg/dL 70-110 Capillary blood glucose measurement by g lucometer (mass/volume) - 04/20/18 06:02 Capillary blood glucose measurement by glucometer (mas s/volume) 250 mg/dL 70-110 Capillary blood glucose measurement by g lucometer (mass/volume) - 04/20/18 11:02 Capillary blood glucose measurement by glucometer (mas s/volume) 291 mg/dL 70-110 Complete blood count (CBC) with automate d white blood cell (WBC) differential - 04/20/18 22:49 Blood leukocytes automated count (number/volume) 14.5 10*3/uL 4.3-11.0 Blood erythrocytes automated count (number/volume) 3.84 10*6/uL 4.35-5.85 Venous blood hemoglobin measurement (mass/volume) 11.7 g/dL 13.3-17.7 Blood hematocrit (volume fraction) 34 % 40-54 Automated erythrocyte mean corpuscular volume 89 [ foz_us] 80-99 Automated erythrocyte mean corpuscular h emoglobin (mass per erythrocyte) 31 pg 25-34 Automated erythrocyte mean corpuscular h emoglobin concentration measurement (mass/volume) 34 g/dL 32-36 Automated erythrocyte distribution width ratio 13. 7 % 10.0- 14.5 Automated blood platelet count (count/volume) 225 10*3/uL 130-400 Automated blood platelet mean volume measurement 9.7 [foz_us] 7.4-10.4 Automated blood neutrophils/100 leukocytes 91 % 42-75 Automated blood lymphocytes/100 leukocytes 3 % 12-44 Blood monocytes/100 leukocytes 6 % 0-12 Automated blood eosinophils/100 leukocytes 0 % 0-10 Automated blood basophils/100 leukocytes 0 % 0-10 Blood neutrophils automated count (number/volume) 13.2 10*3 1.8-7.8 Blood lymphocytes automated count (number/volume) 0.5 10*3 1.0-4.0 Blood monocytes automated count (number/volume) 0. 8 10*3 0.0-1.0 Automated eosinophil count 0.0 10*3/uL 0 .0-0.3 Automated blood basophil count (count/volume) 0.0 10*3/uL 0.0-0.1 Blood manual differential performed dete ction - 04/20/18 22:49 Blood monocytes/100 leukocytes 4 % NRG Manual blood segmented neutrophils/100 leukocytes 94 % NRG Blood band neutrophils/100 leukocytes 0 % NRG Manual blood lymphocytes/100 leukocytes 2 % NRG Manual eosinophils/100 leukocytes in nose 0 % NRG Manual blood basophils/100 leukocytes 0 % NRG Blood erythrocyte morphology finding identification NORMAL NRG Comprehensive metabolic panel - 04/20/18 22:49 Serum or plasma sodium measurement (moles/volume) 136 mmol/L 135-145 Serum or plasma potassium measurement (moles/volume) 4.2 mmol/L 3.6-5.0 Serum or plasma chloride measurement (moles/volume) 102 mmol/L 98-107 Carbon dioxide 19 mmol/L 21-32 Serum or plasma anion gap determination (moles/volume) 15 mmol/L 5-14 Serum or plasma urea nitrogen measurement (mass/volume ) 42 mg/dL 7-18 Serum or plasma creatinine measurement (mass/volume) 1.73 mg/dL 0.60-1.30 Serum or plasma urea nitrogen/creatinine mass ratio 24 NRG Serum or plasma creatinine measurement w ith calculation of estimated glomerular filtration rate 39 NRG Serum or plasma glucose measurement (mass/volume) 387 mg/dL 70-105 Serum or plasma calcium measurement (mass/volume) 9.4 mg/dL 8.5-10.1 Serum or plasma total bilirubin measurement (mass/volu me) 0.4 mg/dL 0.1-1.0 Serum or plasma alkaline phosphatase sergio surement (enzymatic activity/volume) 57 U/L 40-136 Serum or plasma aspartate aminotransfera se measurement (enzymatic activity/volume) 19 U/L 5-34 Serum or plasma alanine aminotransferase measurement (enzymatic activity/volume) 16 U/L 0-55 Serum or plasma protein measurement (mass/volume) 7.1 g/dL 6.4-8.2 Serum or plasma albumin measurement (mass/volume) 4.6 g/dL 3.2-4.5 Magnesium - 04/20/18 22:49 Magnesium 2.5 mg/dL 1.8-2.4 Serum or plasma C reactive protein measu rement (mass/volume) - 04/20/18 22:49 Serum or plasma C reactive protein measurement (mass/v olume) 0.30 mg/dL 0.00-0.50 Arterial blood gas measurement - 8 23:00 Blood pCO2 37 mm[Hg] 35-45 Blood pO2 97 mm[Hg] 79-93 Arterial blood bicarbonate measurement (moles/volume) 20 mmol/L 23-27 Arterial blood base excess by calculation -4.2 mmo l/L -2.5-2.5 Arterial blood oxygen saturation measurement 98 % 94-100 * Inhaled oxygen flow rate 6L NRG Arterial blood pH measurement with patient temperature correction 7.35 7.37-7.43 Arterial blood carbon dioxide, total measurement (mole s/volume) 21.5 mmol/L 21.0-31.0 Body site LEFT RADIAL NRG Assessment of wrist artery patency prior to arterial p uncture YES-POS NRG Setting of ventilation mode NO NR G Measurement of body temperature 98.3 NRG Methicillin resistant Staphylococcus aur eus (MRSA) screening culture - 06/20/18 12:50 Methicillin resistant Staphylococcus aureus (MRSA) scr eening culture NEG NRG Capillary blood glucose measurement by g lucometer (mass/volume) - 06/26/18 07:26 Capillary blood glucose measurement by glucometer (mas s/volume) 291 mg/dL 70-110 Automated blood complete blood count (he mogram) panel - 06/26/18 08:00 Blood leukocytes automated count (number/volume) 5.8 10*3/uL 4.3-11.0 Blood erythrocytes automated count (number/volume) 4.11 10*6/uL 4.35-5.85 Venous blood hemoglobin measurement (mass/volume) 12.1 g/dL 13.3-17.7 Blood hematocrit (volume fraction) 36 % 40-54 Automated erythrocyte mean corpuscular volume 88 [ foz_us] 80-99 Automated erythrocyte mean corpuscular h emoglobin (mass per erythrocyte) 29 pg 25-34 Automated erythrocyte mean corpuscular h emoglobin concentration measurement (mass/volume) 33 g/dL 32-36 Automated erythrocyte distribution width ratio 14. 7 % 10.0- 14.5 Automated blood platelet count (count/volume) 188 10*3/uL 130-400 Automated blood platelet mean volume measurement 9.6 [foz_us] 7.4-10.4 Complete blood count (CBC) with automate d white blood cell (WBC) differential - 12/15/18 06:30 Blood leukocytes automated count (number/volume) 8.8 10*3/uL 4.3-11.0 Blood erythrocytes automated count (number/volume) 4.17 10*6/uL 4.35-5.85 Venous blood hemoglobin measurement (mass/volume) 12.1 g/dL 13.3-17.7 Blood hematocrit (volume fraction) 36 % 40-54 Automated erythrocyte mean corpuscular volume 87 [ foz_us] 80-99 Automated erythrocyte mean corpuscular h emoglobin (mass per erythrocyte) 29 pg 25-34 Automated erythrocyte mean corpuscular h emoglobin concentration measurement (mass/volume) 34 g/dL 32-36 Automated erythrocyte distribution width ratio 14. 2 % 10.0- 14.5 Automated blood platelet count (count/volume) 245 10*3/uL 130-400 Automated blood platelet mean volume measurement 9.9 [foz_us] 7.4-10.4 Automated blood neutrophils/100 leukocytes 72 % 42-75 Automated blood lymphocytes/100 leukocytes 14 % 12-44 Blood monocytes/100 leukocytes 10 % 0-12 Automated blood eosinophils/100 leukocytes 3 % 0-10 Automated blood basophils/100 leukocytes 1 % 0-10 Blood neutrophils automated count (number/volume) 6.4 10*3 1.8-7.8 Blood lymphocytes automated count (number/volume) 1.2 10*3 1.0-4.0 Blood monocytes automated count (number/volume) 0. 9 10*3 0.0-1.0 Automated eosinophil count 0.3 10*3/uL 0 .0-0.3 Automated blood basophil count (count/volume) 0.0 10*3/uL 0.0-0.1 Blood lactic acid measurement (moles/vol ume) - 12/15/18 06:30 Blood lactic acid measurement (moles/volume) 2.01 mmol/L 0.50-2.00 Comprehensive metabolic panel - 12/15/18 06:30 Serum or plasma sodium measurement (moles/volume) 139 mmol/L 135-145 Serum or plasma potassium measurement (moles/volume) 4.0 mmol/L 3.6-5.0 Serum or plasma chloride measurement (moles/volume) 102 mmol/L 98-107 Carbon dioxide 25 mmol/L 21-32 Serum or plasma anion gap determination (moles/volume) 12 mmol/L 5-14 Serum or plasma urea nitrogen measurement (mass/volume ) 21 mg/dL 7-18 Serum or plasma creatinine measurement (mass/volume) 1.08 mg/dL 0.60-1.30 Serum or plasma urea nitrogen/creatinine mass ratio 19 NRG Serum or plasma creatinine measurement w ith calculation of estimated glomerular filtration rate > NRG Serum or plasma glucose measurement (mass/volume) 142 mg/dL 70-105 Serum or plasma calcium measurement (mass/volume) 9.5 mg/dL 8.5-10.1 Serum or plasma total bilirubin measurement (mass/volu me) 0.5 mg/dL 0.1-1.0 Serum or plasma alkaline phosphatase sergio surement (enzymatic activity/volume) 74 U/L 40-136 Serum or plasma aspartate aminotransfera se measurement (enzymatic activity/volume) 18 U/L 5-34 Serum or plasma alanine aminotransferase measurement (enzymatic activity/volume) < U/L 0-55 Serum or plasma protein measurement (mass/volume) 7.3 g/dL 6.4-8.2 Serum or plasma albumin measurement (mass/volume) 4.4 g/dL 3.2-4.5 CALCIUM CORRECTED 9.2 mg/dL 8.5-10.1 PT panel in platelet poor plasma by coag ulation assay - 12/15/18 06:30 Prothrombin time (PT) in platelet poor plasma by coagu lation assay 13.3 s 12.2-14.7 INR in platelet poor plasma or blood by coagulation as say 1.0 0.8-1.4 Activated partial thromboplastin time (a PTT) in platelet poor plasma bycoagulation assay - 12/15/18 06:30 Activated partial thromboplastin time (a PTT) in platelet poor plasma bycoagulation assay 25 s 24-35 Serum or plasma troponin i.cardiac measu rement (mass/volume) - 12/15/18 06:30 Serum or plasma troponin i.cardiac measurement (mass/v olume) < ng/mL <0.028 Influenza virus A and B antigen detectio n - 12/15/18 06:30 FLU RESULT NEGATIVE FOR INFLUENZA A AND B ANTIGENS BY IA NRG PROCALCITONIN (PCT) - 12/15/18 06:30 PROCALCITONIN (PCT) 0.04 ng/mL <0.10 Bacterial blood culture - 12/15/18 06:30 Bacterial blood culture NG NRG Bacterial blood culture - 12/15/18 07:09 Bacterial blood culture NG NRG Sputum Gram stain - 12/15/18 07:19 Sputum Gram stain Rare Gram positive cocci NRG Bacterial sputum culture - 12/15/18 07:1 9 QUANTITY OF GROWTH . NRG Bacterial sputum culture USUAL RESP NRG Complete urinalysis with reflex to cultu re - 12/15/18 09:00 Urine color determination YELLOW NRG Urine clarity determination SLIGHTLY CLOUDY NRG Urine pH measurement by test strip 5 5-9 Specific gravity of urine by test strip 1.025 1.016-1.022 Urine protein assay by test strip, semi-quantitative 3+ NEGATIVE Urine glucose detection by automated test strip 3+ NEGATIVE Erythrocytes detection in urine sediment by light micr oscopy NEGATIVE NEGATIVE Urine ketones detection by automated test strip 1+ NEGATIVE Urine nitrite detection by test strip NEGATIVE NEGATIVE Urine total bilirubin detection by test strip NEGA TIVE NEGATIVE Urine urobilinogen measurement by automated test strip (mass/volume) NORMAL NORMAL Urine leukocyte esterase detection by dipstick NEG ATIVE NEGATIVE Automated urine sediment erythrocyte cou nt by microscopy (number/high power field) NONE NRG Automated urine sediment leukocyte count by microscopy (number/high power field) [HPF] NRG Bacteria detection in urine sediment by light microsco py RARE NRG Squamous epithelial cells detection in u rine sediment by light microscopy 0-2 NRG Crystals detection in urine sediment by light microsco py NONE NRG Casts detection in urine sediment by light microscopy NONE NRG Mucus detection in urine sediment by light microscopy NEGATIVE NRG Complete urinalysis with reflex to culture CULTURE PENDING NRG Bacterial urine culture - 12/15/18 09:00 Bacterial urine culture NG NRG Arterial blood gas measurement - 9 09:20 Blood pCO2 37 mm[Hg] 35-45 Blood pO2 71 mm[Hg] 79-93 Arterial blood bicarbonate measurement (moles/volume) 23 mmol/L 23-27 Arterial blood base excess by calculation -1.5 mmo l/L -2.5-2.5 Arterial blood oxygen saturation measurement 96 % 94-100 * Inhaled oxygen flow rate 4 L NRG Arterial blood pH measurement with patient temperature correction 7.40 7.37-7.43 Arterial blood carbon dioxide, total measurement (mole s/volume) 24.3 mmol/L 21.0-31.0 Body site RIGHT RADIAL NRG Assessment of wrist artery patency prior to arterial p uncture POSITIVE NRG Setting of ventilation mode NO NR G Measurement of body temperature 95 NRG Serum or plasma lactate measurement (mol es/volume) - 12/15/18 09:55 Serum or plasma lactate measurement (moles/volume) 4.71 mmol/L 0.50-2.00 Complete blood count (CBC) with automate d white blood cell (WBC) differential - 12/16/18 05:22 Blood leukocytes automated count (number/volume) 12.9 10*3/uL 4.3-11.0 Blood erythrocytes automated count (number/volume) 3.74 10*6/uL 4.35-5.85 Venous blood hemoglobin measurement (mass/volume) 10.7 g/dL 13.3-17.7 Blood hematocrit (volume fraction) 32 % 40-54 Automated erythrocyte mean corpuscular volume 86 [ foz_us] 80-99 Automated erythrocyte mean corpuscular h emoglobin (mass per erythrocyte) 29 pg 25-34 Automated erythrocyte mean corpuscular h emoglobin concentration measurement (mass/volume) 33 g/dL 32-36 Automated erythrocyte distribution width ratio 13. 7 % 10.0- 14.5 Automated blood platelet count (count/volume) 206 10*3/uL 130-400 Automated blood platelet mean volume measurement 10.2 [foz_us] 7.4-10.4 Automated blood neutrophils/100 leukocytes 91 % 42-75 Automated blood lymphocytes/100 leukocytes 4 % 12-44 Blood monocytes/100 leukocytes 5 % 0-12 Automated blood eosinophils/100 leukocytes 0 % 0-10 Automated blood basophils/100 leukocytes 0 % 0-10 Blood neutrophils automated count (number/volume) 11.7 10*3 1.8-7.8 Blood lymphocytes automated count (number/volume) 0.5 10*3 1.0-4.0 Blood monocytes automated count (number/volume) 0. 6 10*3 0.0-1.0 Automated eosinophil count 0.0 10*3/uL 0 .0-0.3 Automated blood basophil count (count/volume) 0.0 10*3/uL 0.0-0.1 Comprehensive metabolic panel - 12/16/18 05:22 Serum or plasma sodium measurement (moles/volume) 138 mmol/L 135-145 Serum or plasma potassium measurement (moles/volume) 4.3 mmol/L 3.6-5.0 Serum or plasma chloride measurement (moles/volume) 105 mmol/L 98-107 Carbon dioxide 18 mmol/L 21-32 Serum or plasma anion gap determination (moles/volume) 15 mmol/L 5-14 Serum or plasma urea nitrogen measurement (mass/volume ) 22 mg/dL 7-18 Serum or plasma creatinine measurement (mass/volume) 1.17 mg/dL 0.60-1.30 Serum or plasma urea nitrogen/creatinine mass ratio 19 NRG Serum or plasma creatinine measurement w ith calculation of estimated glomerular filtration rate 60 NRG Serum or plasma glucose measurement (mass/volume) 286 mg/dL 70-105 Serum or plasma calcium measurement (mass/volume) 9.4 mg/dL 8.5-10.1 Serum or plasma total bilirubin measurement (mass/volu me) 0.4 mg/dL 0.1-1.0 Serum or plasma alkaline phosphatase sergio surement (enzymatic activity/volume) 75 U/L 40-136 Serum or plasma aspartate aminotransfera se measurement (enzymatic activity/volume) 17 U/L 5-34 Serum or plasma alanine aminotransferase measurement (enzymatic activity/volume) < U/L 0-55 Serum or plasma protein measurement (mass/volume) 6.7 g/dL 6.4-8.2 Serum or plasma albumin measurement (mass/volume) 4.3 g/dL 3.2-4.5 CALCIUM CORRECTED 9.2 mg/dL 8.5-10.1 Serum or plasma phosphate measurement (m ass/volume) - 12/16/18 05:22 Serum or plasma phosphate measurement (mass/volume) 3.2 mg/dL 2.3-4.7 Magnesium - 12/16/18 05:22 Magnesium 2.2 mg/dL 1.8-2.4 Serum or plasma lithium measurement (mol es/volume) - 12/16/18 05:22 BNP level 118.9 pg/mL <100.0 Complete blood count (CBC) with automate d white blood cell (WBC) differential - 12/17/18 07:47 Blood leukocytes automated count (number/volume) 14.3 10*3/uL 4.3-11.0 Blood erythrocytes automated count (number/volume) 4.07 10*6/uL 4.35-5.85 Venous blood hemoglobin measurement (mass/volume) 11.6 g/dL 13.3-17.7 Blood hematocrit (volume fraction) 35 % 40-54 Automated erythrocyte mean corpuscular volume 87 [ foz_us] 80-99 Automated erythrocyte mean corpuscular h emoglobin (mass per erythrocyte) 29 pg 25-34 Automated erythrocyte mean corpuscular h emoglobin concentration measurement (mass/volume) 33 g/dL 32-36 Automated erythrocyte distribution width ratio 14. 4 % 10.0- 14.5 Automated blood platelet count (count/volume) 253 10*3/uL 130-400 Automated blood platelet mean volume measurement 9.6 [foz_us] 7.4-10.4 Automated blood neutrophils/100 leukocytes 89 % 42-75 Automated blood lymphocytes/100 leukocytes 5 % 12-44 Blood monocytes/100 leukocytes 7 % 0-12 Automated blood eosinophils/100 leukocytes 0 % 0-10 Automated blood basophils/100 leukocytes 0 % 0-10 Blood neutrophils automated count (number/volume) 12.6 10*3 1.8-7.8 Blood lymphocytes automated count (number/volume) 0.7 10*3 1.0-4.0 Blood monocytes automated count (number/volume) 0. 9 10*3 0.0-1.0 Automated eosinophil count 0.0 10*3/uL 0 .0-0.3 Automated blood basophil count (count/volume) 0.0 10*3/uL 0.0-0.1 Blood lactic acid measurement (moles/vol ume) - 12/17/18 07:47 Blood lactic acid measurement (moles/volume) 3.13 mmol/L 0.50-2.00 Whole blood basic metabolic panel - 11/23 03/12 07:47 Serum or plasma sodium measurement (moles/volume) 137 mmol/L 135-145 Serum or plasma potassium measurement (moles/volume) 4.2 mmol/L 3.6-5.0 Serum or plasma chloride measurement (moles/volume) 101 mmol/L 98-107 Carbon dioxide 23 mmol/L 21-32 Serum or plasma anion gap determination (moles/volume) 13 mmol/L 5-14 Serum or plasma urea nitrogen measurement (mass/volume ) 26 mg/dL 7-18 Serum or plasma creatinine measurement (mass/volume) 1.13 mg/dL 0.60-1.30 Serum or plasma urea nitrogen/creatinine mass ratio 23 NRG Serum or plasma creatinine measurement w ith calculation of estimated glomerular filtration rate > NRG Serum or plasma glucose measurement (mass/volume) 255 mg/dL 70-105 Serum or plasma calcium measurement (mass/volume) 9.5 mg/dL 8.5-10.1 Serum or plasma phosphate measurement (m ass/volume) - 12/17/18 07:47 Serum or plasma phosphate measurement (mass/volume) 3.7 mg/dL 2.3-4.7 Magnesium - 12/17/18 07:47 Magnesium 2.5 mg/dL 1.8-2.4 Serum or plasma lithium measurement (mol es/volume) - 12/17/18 07:47 BNP level 151.2 pg/mL <100.0 Blood manual differential performed dete ction - 12/17/18 07:47 Blood monocytes/100 leukocytes 7 % NRG Manual blood segmented neutrophils/100 leukocytes 86 % NRG Blood band neutrophils/100 leukocytes 2 % NRG Manual blood lymphocytes/100 leukocytes 5 % NRG Manual eosinophils/100 leukocytes in nose 0 % NRG Manual blood basophils/100 leukocytes 0 % NRG Blood erythrocyte morphology finding identification NORMAL NRG Serum or plasma lactate measurement (mol es/volume) - 12/17/18 09:47 Serum or plasma lactate measurement (moles/volume) 2.70 mmol/L 0.50-2.00 Capillary blood glucose measurement by g lucometer (mass/volume) - 12/17/18 13:43 Capillary blood glucose measurement by glucometer (mas s/volume) 323 mg/dL 70-110 Capillary blood glucose measurement by g lucometer (mass/volume) - 12/17/18 15:25 Capillary blood glucose measurement by glucometer (mas s/volume) 207 mg/dL 70-110 Capillary blood glucose measurement by g lucometer (mass/volume) - 12/17/18 20:01 Capillary blood glucose measurement by glucometer (mas s/volume) 363 mg/dL 70-110 Capillary blood glucose measurement by g lucometer (mass/volume) - 12/18/18 05:38 Capillary blood glucose measurement by glucometer (mas s/volume) 167 mg/dL 70-110 Complete blood count (CBC) with automate d white blood cell (WBC) differential - 12/18/18 05:45 Blood leukocytes automated count (number/volume) 10.1 10*3/uL 4.3-11.0 Blood erythrocytes automated count (number/volume) 3.64 10*6/uL 4.35-5.85 Venous blood hemoglobin measurement (mass/volume) 10.2 g/dL 13.3-17.7 Blood hematocrit (volume fraction) 32 % 40-54 Automated erythrocyte mean corpuscular volume 87 [ foz_us] 80-99 Automated erythrocyte mean corpuscular h emoglobin (mass per erythrocyte) 28 pg 25-34 Automated erythrocyte mean corpuscular h emoglobin concentration measurement (mass/volume) 32 g/dL 32-36 Automated erythrocyte distribution width ratio 14. 2 % 10.0- 14.5 Automated blood platelet count (count/volume) 216 10*3/uL 130-400 Automated blood platelet mean volume measurement 9.7 [foz_us] 7.4-10.4 Automated blood neutrophils/100 leukocytes 80 % 42-75 Automated blood lymphocytes/100 leukocytes 9 % 12-44 Blood monocytes/100 leukocytes 11 % 0-12 Automated blood eosinophils/100 leukocytes 0 % 0-10 Automated blood basophils/100 leukocytes 0 % 0-10 Blood neutrophils automated count (number/volume) 8.1 10*3 1.8-7.8 Blood lymphocytes automated count (number/volume) 0.9 10*3 1.0-4.0 Blood monocytes automated count (number/volume) 1. 1 10*3 0.0-1.0 Automated eosinophil count 0.0 10*3/uL 0 .0-0.3 Automated blood basophil count (count/volume) 0.0 10*3/uL 0.0-0.1 Whole blood basic metabolic panel - 11/23 04/11 05:45 Serum or plasma sodium measurement (moles/volume) 137 mmol/L 135-145 Serum or plasma potassium measurement (moles/volume) 4.1 mmol/L 3.6-5.0 Serum or plasma chloride measurement (moles/volume) 103 mmol/L 98-107 Carbon dioxide 23 mmol/L 21-32 Serum or plasma anion gap determination (moles/volume) 11 mmol/L 5-14 Serum or plasma urea nitrogen measurement (mass/volume ) 31 mg/dL 7-18 Serum or plasma creatinine measurement (mass/volume) 1.09 mg/dL 0.60-1.30 Serum or plasma urea nitrogen/creatinine mass ratio 28 NRG Serum or plasma creatinine measurement w ith calculation of estimated glomerular filtration rate > NRG Serum or plasma glucose measurement (mass/volume) 167 mg/dL 70-105 Serum or plasma calcium measurement (mass/volume) 8.8 mg/dL 8.5-10.1 Serum or plasma phosphate measurement (m ass/volume) - 12/18/18 05:45 Serum or plasma phosphate measurement (mass/volume) 2.9 mg/dL 2.3-4.7 Magnesium - 12/18/18 05:45 Magnesium 2.3 mg/dL 1.8-2.4 Capillary blood glucose measurement by g lucometer (mass/volume) - 12/18/18 11:22 Capillary blood glucose measurement by glucometer (mas s/volume) 256 mg/dL 70-110 Complete blood count (CBC) with automate d white blood cell (WBC) differential - 12/20/18 08:35 Blood leukocytes automated count (number/volume) 18.4 10*3/uL 4.3-11.0 Blood erythrocytes automated count (number/volume) 4.56 10*6/uL 4.35-5.85 Venous blood hemoglobin measurement (mass/volume) 13.0 g/dL 13.3-17.7 Blood hematocrit (volume fraction) 40 % 40-54 Automated erythrocyte mean corpuscular volume 87 [ foz_us] 80-99 Automated erythrocyte mean corpuscular h emoglobin (mass per erythrocyte) 29 pg 25-34 Automated erythrocyte mean corpuscular h emoglobin concentration measurement (mass/volume) 33 g/dL 32-36 Automated erythrocyte distribution width ratio 14. 4 % 10.0- 14.5 Automated blood platelet count (count/volume) 234 10*3/uL 130-400 Automated blood platelet mean volume measurement 10.0 [foz_us] 7.4-10.4 Automated blood neutrophils/100 leukocytes 87 % 42-75 Automated blood lymphocytes/100 leukocytes 4 % 12-44 Blood monocytes/100 leukocytes 8 % 0-12 Automated blood eosinophils/100 leukocytes 0 % 0-10 Automated blood basophils/100 leukocytes 0 % 0-10 Blood neutrophils automated count (number/volume) 16.0 10*3 1.8-7.8 Blood lymphocytes automated count (number/volume) 0.8 10*3 1.0-4.0 Blood monocytes automated count (number/volume) 1. 5 10*3 0.0-1.0 Automated eosinophil count 0.1 10*3/uL 0 .0-0.3 Automated blood basophil count (count/volume) 0.1 10*3/uL 0.0-0.1 Comprehensive metabolic panel - 12/20/18 08:35 Serum or plasma sodium measurement (moles/volume) 139 mmol/L 135-145 Serum or plasma potassium measurement (moles/volume) 4.2 mmol/L 3.6-5.0 Serum or plasma chloride measurement (moles/volume) 99 mmol/L 98-107 Carbon dioxide 25 mmol/L 21-32 Serum or plasma anion gap determination (moles/volume) 15 mmol/L 5-14 Serum or plasma urea nitrogen measurement (mass/volume ) 25 mg/dL 7-18 Serum or plasma creatinine measurement (mass/volume) 1.15 mg/dL 0.60-1.30 Serum or plasma urea nitrogen/creatinine mass ratio 22 NRG Serum or plasma creatinine measurement w ith calculation of estimated glomerular filtration rate > NRG Serum or plasma glucose measurement (mass/volume) 187 mg/dL 70-105 Serum or plasma calcium measurement (mass/volume) 9.9 mg/dL 8.5-10.1 Serum or plasma total bilirubin measurement (mass/volu me) 0.7 mg/dL 0.1-1.0 Serum or plasma alkaline phosphatase sergio surement (enzymatic activity/volume) 74 U/L 40-136 Serum or plasma aspartate aminotransfera se measurement (enzymatic activity/volume) 19 U/L 5-34 Serum or plasma alanine aminotransferase measurement (enzymatic activity/volume) 7 U/L 0-55 Serum or plasma protein measurement (mass/volume) 7.4 g/dL 6.4-8.2 Serum or plasma albumin measurement (mass/volume) 4.6 g/dL 3.2-4.5 Blood manual differential performed dete ction - 12/20/18 08:35 Blood monocytes/100 leukocytes 8 % NRG Manual blood segmented neutrophils/100 leukocytes 74 % NRG Blood band neutrophils/100 leukocytes 10 % NRG Manual blood lymphocytes/100 leukocytes 5 % NRG Manual eosinophils/100 leukocytes in nose 2 % NRG Manual blood basophils/100 leukocytes 0 % NRG Blood erythrocyte morphology finding identification NORMAL NRG Manual blood myelocytes/100 leukocytes 1 % NRG Arterial blood gas measurement - 9 08:57 Blood pCO2 39 mm[Hg] 35-45 Blood pO2 75 mm[Hg] 79-93 Arterial blood bicarbonate measurement (moles/volume) 26 mmol/L 23-27 Arterial blood base excess by calculation 1.5 mmol /L -2.5-2.5 Arterial blood oxygen saturation measurement 96 % 94-100 * Inhaled oxygen flow rate 40% NRG Arterial blood pH measurement with patient temperature correction 7.43 7.37-7.43 Arterial blood carbon dioxide, total measurement (mole s/volume) 26.7 mmol/L 21.0-31.0 Body site RT RADIAL NRG Assessment of wrist artery patency prior to arterial p uncture YES-POS NRG Setting of ventilation mode NO NR G Measurement of body temperature 97.3 NRG Serum or plasma C reactive protein measu rement (mass/volume) - 12/20/18 09:03 Serum or plasma C reactive protein measurement (mass/v olume) 2.46 mg/dL 0.00-0.50 Serum or plasma lithium measurement (mol es/volume) - 12/20/18 09:03 BNP level 48.1 pg/mL <100.0 Methicillin resistant Staphylococcus aur eus (MRSA) screening culture - 12/20/18 13:50 Methicillin resistant Staphylococcus aureus (MRSA) scr eening culture NEG NRG Complete blood count (CBC) with automate d white blood cell (WBC) differential - 12/21/18 03:25 Blood leukocytes automated count (number/volume) 11.7 10*3/uL 4.3-11.0 Blood erythrocytes automated count (number/volume) 3.99 10*6/uL 4.35-5.85 Venous blood hemoglobin measurement (mass/volume) 11.5 g/dL 13.3-17.7 Blood hematocrit (volume fraction) 34 % 40-54 Automated erythrocyte mean corpuscular volume 86 [ foz_us] 80-99 Automated erythrocyte mean corpuscular h emoglobin (mass per erythrocyte) 29 pg 25-34 Automated erythrocyte mean corpuscular h emoglobin concentration measurement (mass/volume) 34 g/dL 32-36 Automated erythrocyte distribution width ratio 14. 2 % 10.0- 14.5 Automated blood platelet count (count/volume) 216 10*3/uL 130-400 Automated blood platelet mean volume measurement 9.8 [foz_us] 7.4-10.4 Automated blood neutrophils/100 leukocytes 94 % 42-75 Automated blood lymphocytes/100 leukocytes 3 % 12-44 Blood monocytes/100 leukocytes 3 % 0-12 Automated blood eosinophils/100 leukocytes 0 % 0-10 Automated blood basophils/100 leukocytes 0 % 0-10 Blood neutrophils automated count (number/volume) 11.0 10*3 1.8-7.8 Blood lymphocytes automated count (number/volume) 0.3 10*3 1.0-4.0 Blood monocytes automated count (number/volume) 0. 3 10*3 0.0-1.0 Automated eosinophil count 0.0 10*3/uL 0 .0-0.3 Automated blood basophil count (count/volume) 0.0 10*3/uL 0.0-0.1 Whole blood basic metabolic panel - 11/24 03:25 Serum or plasma sodium measurement (moles/volume) 136 mmol/L 135-145 Serum or plasma potassium measurement (moles/volume) 4.4 mmol/L 3.6-5.0 Serum or plasma chloride measurement (moles/volume) 102 mmol/L 98-107 Carbon dioxide 21 mmol/L 21-32 Serum or plasma anion gap determination (moles/volume) 13 mmol/L 5-14 Serum or plasma urea nitrogen measurement (mass/volume ) 27 mg/dL 7-18 Serum or plasma creatinine measurement (mass/volume) 1.03 mg/dL 0.60-1.30 Serum or plasma urea nitrogen/creatinine mass ratio 26 NRG Serum or plasma creatinine measurement w ith calculation of estimated glomerular filtration rate > NRG Serum or plasma glucose measurement (mass/volume) 236 mg/dL 70-105 Serum or plasma calcium measurement (mass/volume) 9.0 mg/dL 8.5-10.1 Serum or plasma phosphate measurement (m ass/volume) - 12/21/18 03:25 Serum or plasma phosphate measurement (mass/volume) 3.9 mg/dL 2.3-4.7 Magnesium - 12/21/18 03:25 Magnesium 2.5 mg/dL 1.8-2.4 Capillary blood glucose measurement by g lucometer (mass/volume) - 12/21/18 11:04 Capillary blood glucose measurement by glucometer (mas s/volume) 219 mg/dL 70-110 Capillary blood glucose measurement by g lucometer (mass/volume) - 12/21/18 16:15 Capillary blood glucose measurement by glucometer (mas s/volume) 276 mg/dL 70-110 Capillary blood glucose measurement by g lucometer (mass/volume) - 12/21/18 20:36 Capillary blood glucose measurement by glucometer (mas s/volume) 295 mg/dL 70-110 Complete blood count (CBC) with automate d white blood cell (WBC) differential - 12/22/18 03:10 Blood leukocytes automated count (number/volume) 16.1 10*3/uL 4.3-11.0 Blood erythrocytes automated count (number/volume) 3.97 10*6/uL 4.35-5.85 Venous blood hemoglobin measurement (mass/volume) 11.1 g/dL 13.3-17.7 Blood hematocrit (volume fraction) 34 % 40-54 Automated erythrocyte mean corpuscular volume 86 [ foz_us] 80-99 Automated erythrocyte mean corpuscular h emoglobin (mass per erythrocyte) 28 pg 25-34 Automated erythrocyte mean corpuscular h emoglobin concentration measurement (mass/volume) 32 g/dL 32-36 Automated erythrocyte distribution width ratio 14. 3 % 10.0- 14.5 Automated blood platelet count (count/volume) 216 10*3/uL 130-400 Automated blood platelet mean volume measurement 10.3 [foz_us] 7.4-10.4 Automated blood neutrophils/100 leukocytes 93 % 42-75 Automated blood lymphocytes/100 leukocytes 2 % 12-44 Blood monocytes/100 leukocytes 5 % 0-12 Automated blood eosinophils/100 leukocytes 0 % 0-10 Automated blood basophils/100 leukocytes 0 % 0-10 Blood neutrophils automated count (number/volume) 15.0 10*3 1.8-7.8 Blood lymphocytes automated count (number/volume) 0.3 10*3 1.0-4.0 Blood monocytes automated count (number/volume) 0. 8 10*3 0.0-1.0 Automated eosinophil count 0.0 10*3/uL 0 .0-0.3 Automated blood basophil count (count/volume) 0.0 10*3/uL 0.0-0.1 Whole blood basic metabolic panel - 11/24 10/12 03:10 Serum or plasma sodium measurement (moles/volume) 137 mmol/L 135-145 Serum or plasma potassium measurement (moles/volume) 4.0 mmol/L 3.6-5.0 Serum or plasma chloride measurement (moles/volume) 104 mmol/L 98-107 Carbon dioxide 20 mmol/L 21-32 Serum or plasma anion gap determination (moles/volume) 13 mmol/L 5-14 Serum or plasma urea nitrogen measurement (mass/volume ) 31 mg/dL 7-18 Serum or plasma creatinine measurement (mass/volume) 1.08 mg/dL 0.60-1.30 Serum or plasma urea nitrogen/creatinine mass ratio 29 NRG Serum or plasma creatinine measurement w ith calculation of estimated glomerular filtration rate > NRG Serum or plasma glucose measurement (mass/volume) 297 mg/dL 70-105 Serum or plasma calcium measurement (mass/volume) 8.6 mg/dL 8.5-10.1 Serum or plasma phosphate measurement (m ass/volume) - 12/22/18 03:10 Serum or plasma phosphate measurement (mass/volume) 3.8 mg/dL 2.3-4.7 Magnesium - 12/22/18 03:10 Magnesium 2.5 mg/dL 1.8-2.4 Capillary blood glucose measurement by g lucometer (mass/volume) - 12/22/18 10:57 Capillary blood glucose measurement by glucometer (mas s/volume) 335 mg/dL 70-110 Complete blood count (CBC) with automate d white blood cell (WBC) differential - 12/23/18 18:31 Blood leukocytes automated count (number/volume) 8.4 10*3/uL 4.3-11.0 Blood erythrocytes automated count (number/volume) 4.29 10*6/uL 4.35-5.85 Venous blood hemoglobin measurement (mass/volume) 12.2 g/dL 13.3-17.7 Blood hematocrit (volume fraction) 37 % 40-54 Automated erythrocyte mean corpuscular volume 87 [ foz_us] 80-99 Automated erythrocyte mean corpuscular h emoglobin (mass per erythrocyte) 28 pg 25-34 Automated erythrocyte mean corpuscular h emoglobin concentration measurement (mass/volume) 33 g/dL 32-36 Automated erythrocyte distribution width ratio 14. 5 % 10.0- 14.5 Automated blood platelet count (count/volume) 193 10*3/uL 130-400 Automated blood platelet mean volume measurement 9.7 [foz_us] 7.4-10.4 Automated blood neutrophils/100 leukocytes 79 % 42-75 Automated blood lymphocytes/100 leukocytes 8 % 12-44 Blood monocytes/100 leukocytes 13 % 0-12 Automated blood eosinophils/100 leukocytes 0 % 0-10 Automated blood basophils/100 leukocytes 0 % 0-10 Blood neutrophils automated count (number/volume) 6.6 10*3 1.8-7.8 Blood lymphocytes automated count (number/volume) 0.6 10*3 1.0-4.0 Blood monocytes automated count (number/volume) 1. 1 10*3 0.0-1.0 Automated eosinophil count 0.0 10*3/uL 0 .0-0.3 Automated blood basophil count (count/volume) 0.0 10*3/uL 0.0-0.1 Comprehensive metabolic panel - 12/23/18 18:31 Serum or plasma sodium measurement (moles/volume) 139 mmol/L 135-145 Serum or plasma potassium measurement (moles/volume) 4.1 mmol/L 3.6-5.0 Serum or plasma chloride measurement (moles/volume) 105 mmol/L 98-107 Carbon dioxide 22 mmol/L 21-32 Serum or plasma anion gap determination (moles/volume) 12 mmol/L 5-14 Serum or plasma urea nitrogen measurement (mass/volume ) 31 mg/dL 7-18 Serum or plasma creatinine measurement (mass/volume) 1.09 mg/dL 0.60-1.30 Serum or plasma urea nitrogen/creatinine mass ratio 28 NRG Serum or plasma creatinine measurement w ith calculation of estimated glomerular filtration rate > NRG Serum or plasma glucose measurement (mass/volume) 200 mg/dL 70-105 Serum or plasma calcium measurement (mass/volume) 9.5 mg/dL 8.5-10.1 Serum or plasma total bilirubin measurement (mass/volu me) 0.3 mg/dL 0.1-1.0 Serum or plasma alkaline phosphatase sergio surement (enzymatic activity/volume) 64 U/L 40-136 Serum or plasma aspartate aminotransfera se measurement (enzymatic activity/volume) 30 U/L 5-34 Serum or plasma alanine aminotransferase measurement (enzymatic activity/volume) 63 U/L 0-55 Serum or plasma protein measurement (mass/volume) 6.6 g/dL 6.4-8.2 Serum or plasma albumin measurement (mass/volume) 4.0 g/dL 3.2-4.5 CALCIUM CORRECTED 9.5 mg/dL 8.5-10.1 Blood lactic acid measurement (moles/vol ume) - 12/23/18 18:37 Blood lactic acid measurement (moles/volume) 2.29 mmol/L 0.50-2.00 Serum or plasma troponin i.cardiac measu rement (mass/volume) - 12/23/18 18:37 Serum or plasma troponin i.cardiac measurement (mass/v olume) < ng/mL <0.028 Serum or plasma lithium measurement (mol es/volume) - 12/23/18 18:37 BNP level 380.3 pg/mL <100.0 Bacterial blood culture - 12/23/18 18:37 Bacterial blood culture NG NRG Bacterial blood culture - 12/23/18 18:58 Bacterial blood culture NG NRG Arterial blood gas measurement - 9 19:20 Blood pCO2 39 mm[Hg] 35-45 Blood pO2 97 mm[Hg] 79-93 Arterial blood bicarbonate measurement (moles/volume) 26 mmol/L 23-27 Arterial blood base excess by calculation 2.0 mmol /L -2.5-2.5 Arterial blood oxygen saturation measurement 98 % 94-100 * Inhaled oxygen flow rate 5 NRG Arterial blood pH measurement with patient temperature correction 7.43 7.37-7.43 Arterial blood carbon dioxide, total measurement (mole s/volume) 27.4 mmol/L 21.0-31.0 Body site RIGHT RADIAL NRG Assessment of wrist artery patency prior to arterial p uncture POSITIVE NRG Setting of ventilation mode YES NR G Measurement of body temperature 96.7 NRG Influenza virus A and B antigen detectio n - 12/27/18 01:35 FLU RESULT NEGATIVE FOR INFLUENZA A AND B ANTIGENS BY IA NRG Arterial blood gas measurement - 9 02:00 Blood pCO2 43 mm[Hg] 35-45 Blood pO2 86 mm[Hg] 79-93 Arterial blood bicarbonate measurement (moles/volume) 26 mmol/L 23-27 Arterial blood base excess by calculation 1.6 mmol /L -2.5-2.5 Arterial blood oxygen saturation measurement 96 % 94-100 * Inhaled oxygen flow rate 8L NRG Arterial blood pH measurement with patient temperature correction 7.40 7.37-7.43 Arterial blood carbon dioxide, total measurement (mole s/volume) 26.8 mmol/L 21.0-31.0 Body site RIGHT RADIAL NRG Assessment of wrist artery patency prior to arterial p uncture YES-POS NRG Setting of ventilation mode NO NR G Measurement of body temperature 101.4 NRG Complete blood count (CBC) with automate d white blood cell (WBC) differential - 12/27/18 02:00 Blood leukocytes automated count (number/volume) 23.3 10*3/uL 4.3-11.0 Blood erythrocytes automated count (number/volume) 4.35 10*6/uL 4.35-5.85 Venous blood hemoglobin measurement (mass/volume) 12.5 g/dL 13.3-17.7 Blood hematocrit (volume fraction) 38 % 40-54 Automated erythrocyte mean corpuscular volume 87 [ foz_us] 80-99 Automated erythrocyte mean corpuscular h emoglobin (mass per erythrocyte) 29 pg 25-34 Automated erythrocyte mean corpuscular h emoglobin concentration measurement (mass/volume) 33 g/dL 32-36 Automated erythrocyte distribution width ratio 14. 7 % 10.0- 14.5 Automated blood platelet count (count/volume) 195 10*3/uL 130-400 Automated blood platelet mean volume measurement 10.2 [foz_us] 7.4-10.4 Automated blood neutrophils/100 leukocytes 91 % 42-75 Automated blood lymphocytes/100 leukocytes 2 % 12-44 Blood monocytes/100 leukocytes 7 % 0-12 Automated blood eosinophils/100 leukocytes 0 % 0-10 Automated blood basophils/100 leukocytes 0 % 0-10 Blood neutrophils automated count (number/volume) 21.3 10*3 1.8-7.8 Blood lymphocytes automated count (number/volume) 0.4 10*3 1.0-4.0 Blood monocytes automated count (number/volume) 1. 6 10*3 0.0-1.0 Automated eosinophil count 0.0 10*3/uL 0 .0-0.3 Automated blood basophil count (count/volume) 0.0 10*3/uL 0.0-0.1 Comprehensive metabolic panel - 12/27/18 02:00 Serum or plasma sodium measurement (moles/volume) 137 mmol/L 135-145 Serum or plasma potassium measurement (moles/volume) 4.5 mmol/L 3.6-5.0 Serum or plasma chloride measurement (moles/volume) 100 mmol/L 98-107 Carbon dioxide 24 mmol/L 21-32 Serum or plasma anion gap determination (moles/volume) 13 mmol/L 5-14 Serum or plasma urea nitrogen measurement (mass/volume ) 29 mg/dL 7-18 Serum or plasma creatinine measurement (mass/volume) 1.32 mg/dL 0.60-1.30 Serum or plasma urea nitrogen/creatinine mass ratio 22 NRG Serum or plasma creatinine measurement w ith calculation of estimated glomerular filtration rate 53 NRG Serum or plasma glucose measurement (mass/volume) 231 mg/dL 70-105 Serum or plasma calcium measurement (mass/volume) 8.9 mg/dL 8.5-10.1 Serum or plasma total bilirubin measurement (mass/volu me) 0.7 mg/dL 0.1-1.0 Serum or plasma alkaline phosphatase sergio surement (enzymatic activity/volume) 60 U/L 40-136 Serum or plasma aspartate aminotransfera se measurement (enzymatic activity/volume) 11 U/L 5-34 Serum or plasma alanine aminotransferase measurement (enzymatic activity/volume) 12 U/L 0-55 Serum or plasma protein measurement (mass/volume) 6.3 g/dL 6.4-8.2 Serum or plasma albumin measurement (mass/volume) 3.7 g/dL 3.2-4.5 CALCIUM CORRECTED 9.1 mg/dL 8.5-10.1 Blood lactic acid measurement (moles/vol ume) - 12/27/18 02:00 Blood lactic acid measurement (moles/volume) 2.56 mmol/L 0.50-2.00 Blood manual differential performed dete ction - 12/27/18 02:00 Blood monocytes/100 leukocytes 3 % NRG Manual blood segmented neutrophils/100 leukocytes 90 % NRG Blood band neutrophils/100 leukocytes 4 % NRG Manual blood lymphocytes/100 leukocytes 3 % NRG Blood erythrocyte morphology finding identification NORMAL NRG PT panel in platelet poor plasma by coag ulation assay - 12/27/18 02:00 Prothrombin time (PT) in platelet poor plasma by coagu lation assay 13.4 s 12.2-14.7 INR in platelet poor plasma or blood by coagulation as say 1.0 0.8-1.4 Activated partial thromboplastin time (a PTT) in platelet poor plasma bycoagulation assay - 12/27/18 02:00 Activated partial thromboplastin time (a PTT) in platelet poor plasma bycoagulation assay 23 s 24-35 Bacterial blood culture - 12/27/18 02:00 Bacterial blood culture NG NRG Bacterial blood culture - 12/27/18 02:17 Bacterial blood culture NG NRG Serum or plasma lactate measurement (mol es/volume) - 12/27/18 04:30 Serum or plasma lactate measurement (moles/volume) 2.28 mmol/L 0.50-2.00 Capillary blood glucose measurement by g lucometer (mass/volume) - 12/27/18 06:00 Capillary blood glucose measurement by glucometer (mas s/volume) 268 mg/dL 70-110 Capillary blood glucose measurement by g lucometer (mass/volume) - 12/27/18 10:48 Capillary blood glucose measurement by glucometer (mas s/volume) 220 mg/dL 70-110 Capillary blood glucose measurement by g lucometer (mass/volume) - 12/27/18 16:02 Capillary blood glucose measurement by glucometer (mas s/volume) 226 mg/dL 70-110 Capillary blood glucose measurement by g lucometer (mass/volume) - 12/27/18 20:50 Capillary blood glucose measurement by glucometer (mas s/volume) 150 mg/dL 70-110 Complete blood count (CBC) with automate d white blood cell (WBC) differential - 12/28/18 05:20 Blood leukocytes automated count (number/volume) 7.9 10*3/uL 4.3-11.0 Blood erythrocytes automated count (number/volume) 3.35 10*6/uL 4.35-5.85 Venous blood hemoglobin measurement (mass/volume) 9.6 g/dL 13.3-17.7 Blood hematocrit (volume fraction) 30 % 40-54 Automated erythrocyte mean corpuscular volume 90 [ foz_us] 80-99 Automated erythrocyte mean corpuscular h emoglobin (mass per erythrocyte) 29 pg 25-34 Automated erythrocyte mean corpuscular h emoglobin concentration measurement (mass/volume) 32 g/dL 32-36 Automated erythrocyte distribution width ratio 14. 9 % 10.0- 14.5 Automated blood platelet count (count/volume) 134 10*3/uL 130-400 Automated blood platelet mean volume measurement 9.8 [foz_us] 7.4-10.4 Automated blood neutrophils/100 leukocytes 86 % 42-75 Automated blood lymphocytes/100 leukocytes 7 % 12-44 Blood monocytes/100 leukocytes 7 % 0-12 Automated blood eosinophils/100 leukocytes 1 % 0-10 Automated blood basophils/100 leukocytes 0 % 0-10 Blood neutrophils automated count (number/volume) 6.8 10*3 1.8-7.8 Blood lymphocytes automated count (number/volume) 0.5 10*3 1.0-4.0 Blood monocytes automated count (number/volume) 0. 6 10*3 0.0-1.0 Automated eosinophil count 0.1 10*3/uL 0 .0-0.3 Automated blood basophil count (count/volume) 0.0 10*3/uL 0.0-0.1 Comprehensive metabolic panel - 12/28/18 05:20 Serum or plasma sodium measurement (moles/volume) 138 mmol/L 135-145 Serum or plasma potassium measurement (moles/volume) 4.3 mmol/L 3.6-5.0 Serum or plasma chloride measurement (moles/volume) 106 mmol/L 98-107 Carbon dioxide 26 mmol/L 21-32 Serum or plasma anion gap determination (moles/volume) 6 mmol/L 5-14 Serum or plasma urea nitrogen measurement (mass/volume ) 13 mg/dL 7-18 Serum or plasma creatinine measurement (mass/volume) 0.76 mg/dL 0.60-1.30 Serum or plasma urea nitrogen/creatinine mass ratio 17 NRG Serum or plasma creatinine measurement w ith calculation of estimated glomerular filtration rate > NRG Serum or plasma glucose measurement (mass/volume) 102 mg/dL 70-105 Serum or plasma calcium measurement (mass/volume) 8.3 mg/dL 8.5-10.1 Serum or plasma total bilirubin measurement (mass/volu me) 0.5 mg/dL 0.1-1.0 Serum or plasma alkaline phosphatase sergio surement (enzymatic activity/volume) 46 U/L 40-136 Serum or plasma aspartate aminotransfera se measurement (enzymatic activity/volume) 10 U/L 5-34 Serum or plasma alanine aminotransferase measurement (enzymatic activity/volume) < U/L 0-55 Serum or plasma protein measurement (mass/volume) 5.0 g/dL 6.4-8.2 Serum or plasma albumin measurement (mass/volume) 2.9 g/dL 3.2-4.5 CALCIUM CORRECTED 9.2 mg/dL 8.5-10.1 Serum or plasma lithium measurement (mol es/volume) - 12/28/18 05:20 BNP level 68.1 pg/mL <100.0 Capillary blood glucose measurement by g lucometer (mass/volume) - 12/28/18 05:59 Capillary blood glucose measurement by glucometer (mas s/volume) 103 mg/dL 70-110 Capillary blood glucose measurement by g lucometer (mass/volume) - 12/28/18 11:04 Capillary blood glucose measurement by glucometer (mas s/volume) 185 mg/dL 70-110 Capillary blood glucose measurement by g lucometer (mass/volume) - 12/28/18 16:34 Capillary blood glucose measurement by glucometer (mas s/volume) 187 mg/dL 70-110 Capillary blood glucose measurement by g lucometer (mass/volume) - 12/28/18 20:06 Capillary blood glucose measurement by glucometer (mas s/volume) 259 mg/dL 70-110 Capillary blood glucose measurement by g lucometer (mass/volume) - 12/29/18 05:05 Capillary blood glucose measurement by glucometer (mas s/volume) 162 mg/dL 70-110 Complete blood count (CBC) with automate d white blood cell (WBC) differential - 12/29/18 05:05 Blood leukocytes automated count (number/volume) 6.9 10*3/uL 4.3-11.0 Blood erythrocytes automated count (number/volume) 3.24 10*6/uL 4.35-5.85 Venous blood hemoglobin measurement (mass/volume) 9.3 g/dL 13.3-17.7 Blood hematocrit (volume fraction) 29 % 40-54 Automated erythrocyte mean corpuscular volume 88 [ foz_us] 80-99 Automated erythrocyte mean corpuscular h emoglobin (mass per erythrocyte) 29 pg 25-34 Automated erythrocyte mean corpuscular h emoglobin concentration measurement (mass/volume) 33 g/dL 32-36 Automated erythrocyte distribution width ratio 14. 5 % 10.0- 14.5 Automated blood platelet count (count/volume) 160 10*3/uL 130-400 Automated blood platelet mean volume measurement 9.8 [foz_us] 7.4-10.4 Automated blood neutrophils/100 leukocytes 87 % 42-75 Automated blood lymphocytes/100 leukocytes 6 % 12-44 Blood monocytes/100 leukocytes 7 % 0-12 Automated blood eosinophils/100 leukocytes 1 % 0-10 Automated blood basophils/100 leukocytes 0 % 0-10 Blood neutrophils automated count (number/volume) 6.0 10*3 1.8-7.8 Blood lymphocytes automated count (number/volume) 0.4 10*3 1.0-4.0 Blood monocytes automated count (number/volume) 0. 5 10*3 0.0-1.0 Automated eosinophil count 0.1 10*3/uL 0 .0-0.3 Automated blood basophil count (count/volume) 0.0 10*3/uL 0.0-0.1 Comprehensive metabolic panel - 12/29/18 05:05 Serum or plasma sodium measurement (moles/volume) 136 mmol/L 135-145 Serum or plasma potassium measurement (moles/volume) 4.6 mmol/L 3.6-5.0 Serum or plasma chloride measurement (moles/volume) 102 mmol/L 98-107 Carbon dioxide 26 mmol/L 21-32 Serum or plasma anion gap determination (moles/volume) 8 mmol/L 5-14 Serum or plasma urea nitrogen measurement (mass/volume ) 12 mg/dL 7-18 Serum or plasma creatinine measurement (mass/volume) 0.82 mg/dL 0.60-1.30 Serum or plasma urea nitrogen/creatinine mass ratio 15 NRG Serum or plasma creatinine measurement w ith calculation of estimated glomerular filtration rate > NRG Serum or plasma glucose measurement (mass/volume) 169 mg/dL 70-105 Serum or plasma calcium measurement (mass/volume) 8.7 mg/dL 8.5-10.1 Serum or plasma total bilirubin measurement (mass/volu me) 0.4 mg/dL 0.1-1.0 Serum or plasma alkaline phosphatase sergio surement (enzymatic activity/volume) 45 U/L 40-136 Serum or plasma aspartate aminotransfera se measurement (enzymatic activity/volume) 9 U/L 5-34 Serum or plasma alanine aminotransferase measurement (enzymatic activity/volume) < U/L 0-55 Serum or plasma protein measurement (mass/volume) 5.5 g/dL 6.4-8.2 Serum or plasma albumin measurement (mass/volume) 3.1 g/dL 3.2-4.5 CALCIUM CORRECTED 9.4 mg/dL 8.5-10.1 Capillary blood glucose measurement by g lucometer (mass/volume) - 12/29/18 11:16 Capillary blood glucose measurement by glucometer (mas s/volume) 152 mg/dL 70-110 Capillary blood glucose measurement by g lucometer (mass/volume) - 12/29/18 16:59 Capillary blood glucose measurement by glucometer (mas s/volume) 208 mg/dL 70-110 Capillary blood glucose measurement by g lucometer (mass/volume) - 12/29/18 19:54 Capillary blood glucose measurement by glucometer (mas s/volume) 195 mg/dL 70-110 Capillary blood glucose measurement by g lucometer (mass/volume) - 12/30/18 05:08 Capillary blood glucose measurement by glucometer (mas s/volume) 193 mg/dL 70-110 Complete blood count (CBC) with automate d white blood cell (WBC) differential - 03/08/19 16:05 Blood leukocytes automated count (number/volume) 9.5 10*3/uL 4.3-11.0 Blood erythrocytes automated count (number/volume) 3.81 10*6/uL 4.35-5.85 Venous blood hemoglobin measurement (mass/volume) 10.7 g/dL 13.3-17.7 Blood hematocrit (volume fraction) 33 % 40-54 Automated erythrocyte mean corpuscular volume 87 [ foz_us] 80-99 Automated erythrocyte mean corpuscular h emoglobin (mass per erythrocyte) 28 pg 25-34 Automated erythrocyte mean corpuscular h emoglobin concentration measurement (mass/volume) 32 g/dL 32-36 Automated erythrocyte distribution width ratio 15. 1 % 10.0- 14.5 Automated blood platelet count (count/volume) 244 10*3/uL 130-400 Automated blood platelet mean volume measurement 9.0 [foz_us] 7.4-10.4 Automated blood neutrophils/100 leukocytes 71 % 42-75 Automated blood lymphocytes/100 leukocytes 19 % 12-44 Blood monocytes/100 leukocytes 9 % 0-12 Automated blood eosinophils/100 leukocytes 1 % 0-10 Automated blood basophils/100 leukocytes 0 % 0-10 Blood neutrophils automated count (number/volume) 6.7 10*3 1.8-7.8 Blood lymphocytes automated count (number/volume) 1.8 10*3 1.0-4.0 Blood monocytes automated count (number/volume) 0. 9 10*3 0.0-1.0 Automated eosinophil count 0.1 10*3/uL 0 .0-0.3 Automated blood basophil count (count/volume) 0.0 10*3/uL 0.0-0.1 Comprehensive metabolic panel - 03/08/19 16:05 Serum or plasma sodium measurement (moles/volume) 140 mmol/L 135-145 Serum or plasma potassium measurement (moles/volume) 4.1 mmol/L 3.6-5.0 Serum or plasma chloride measurement (moles/volume) 105 mmol/L 98-107 Carbon dioxide 23 mmol/L 21-32 Serum or plasma anion gap determination (moles/volume) 12 mmol/L 5-14 Serum or plasma urea nitrogen measurement (mass/volume ) 20 mg/dL 7-18 Serum or plasma creatinine measurement (mass/volume) 1.38 mg/dL 0.60-1.30 Serum or plasma urea nitrogen/creatinine mass ratio 14 NRG Serum or plasma creatinine measurement w ith calculation of estimated glomerular filtration rate 50 NRG Serum or plasma glucose measurement (mass/volume) 162 mg/dL 70-105 Serum or plasma calcium measurement (mass/volume) 9.6 mg/dL 8.5-10.1 Serum or plasma total bilirubin measurement (mass/volu me) 0.3 mg/dL 0.1-1.0 Serum or plasma alkaline phosphatase sergio surement (enzymatic activity/volume) 67 U/L 40-136 Serum or plasma aspartate aminotransfera se measurement (enzymatic activity/volume) 14 U/L 5-34 Serum or plasma alanine aminotransferase measurement (enzymatic activity/volume) 15 U/L 0-55 Serum or plasma protein measurement (mass/volume) 7.3 g/dL 6.4-8.2 Serum or plasma albumin measurement (mass/volume) 4.5 g/dL 3.2-4.5 CALCIUM CORRECTED 9.2 mg/dL 8.5-10.1 Serum or plasma lithium measurement (mol es/volume) - 03/08/19 16:05 BNP level 26.3 pg/mL <100.0 Arterial blood gas measurement - 9 16:15 Blood pCO2 38 mm[Hg] 35-45 Blood pO2 72 mm[Hg] 79-93 Arterial blood bicarbonate measurement (moles/volume) 24 mmol/L 23-27 Arterial blood base excess by calculation -0.2 mmo l/L -2.5-2.5 Arterial blood oxygen saturation measurement 96 % 94-100 * Inhaled oxygen flow rate 5 L NRG Arterial blood pH measurement with patient temperature correction 7.41 7.37-7.43 Arterial blood carbon dioxide, total measurement (mole s/volume) 25.1 mmol/L 21.0-31.0 Body site LEFT RADIAL NRG Assessment of wrist artery patency prior to arterial p uncture POSITIVE NRG Setting of ventilation mode NO NR G Measurement of body temperature 98.0 NRG Comprehensive metabolic panel - 03/24/19 12:10 Serum or plasma sodium measurement (moles/volume) 138 mmol/L 135-145 Serum or plasma potassium measurement (moles/volume) 3.9 mmol/L 3.6-5.0 Serum or plasma chloride measurement (moles/volume) 103 mmol/L 98-107 Carbon dioxide 26 mmol/L 21-32 Serum or plasma anion gap determination (moles/volume) 9 mmol/L 5-14 Serum or plasma urea nitrogen measurement (mass/volume ) 18 mg/dL 7-18 Serum or plasma creatinine measurement (mass/volume) 0.91 mg/dL 0.60-1.30 Serum or plasma urea nitrogen/creatinine mass ratio 20 NRG Serum or plasma creatinine measurement w ith calculation of estimated glomerular filtration rate > NRG Serum or plasma glucose measurement (mass/volume) 135 mg/dL 70-105 Serum or plasma calcium measurement (mass/volume) 9.0 mg/dL 8.5-10.1 Serum or plasma total bilirubin measurement (mass/volu me) 0.4 mg/dL 0.1-1.0 Serum or plasma alkaline phosphatase sergio surement (enzymatic activity/volume) 52 U/L 40-136 Serum or plasma aspartate aminotransfera se measurement (enzymatic activity/volume) 11 U/L 5-34 Serum or plasma alanine aminotransferase measurement (enzymatic activity/volume) 7 U/L 0-55 Serum or plasma protein measurement (mass/volume) 6.5 g/dL 6.4-8.2 Serum or plasma albumin measurement (mass/volume) 4.2 g/dL 3.2-4.5 CALCIUM CORRECTED 8.8 mg/dL 8.5-10.1 Arterial blood gas measurement - 9 12:22 Blood pCO2 39 mm[Hg] 35-45 Blood pO2 41 mm[Hg] 79-93 Arterial blood bicarbonate measurement (moles/volume) 27 mmol/L 23-27 Arterial blood base excess by calculation 3.5 mmol /L -2.5-2.5 Arterial blood oxygen saturation measurement 76 % 94-100 * Inhaled oxygen flow rate 3L NRG Arterial blood pH measurement with patient temperature correction 7.46 7.37-7.43 Arterial blood carbon dioxide, total measurement (mole s/volume) 28.7 mmol/L 21.0-31.0 Body site LT RAD NRG Assessment of wrist artery patency prior to arterial p uncture YES-POS NRG Setting of ventilation mode NO NR G Measurement of body temperature 96.9 NRG Serum or plasma troponin i.cardiac measu rement (mass/volume) - 03/24/19 14:55 Serum or plasma troponin i.cardiac measurement (mass/v olume) < ng/mL <0.028 Automated blood complete blood count (he mogram) panel - 03/24/19 14:55 Blood leukocytes automated count (number/volume) 7.0 10*3/uL 4.3-11.0 Blood erythrocytes automated count (number/volume) 3.87 10*6/uL 4.35-5.85 Venous blood hemoglobin measurement (mass/volume) 10.7 g/dL 13.3-17.7 Blood hematocrit (volume fraction) 34 % 40-54 Automated erythrocyte mean corpuscular volume 88 [ foz_us] 80-99 Automated erythrocyte mean corpuscular h emoglobin (mass per erythrocyte) 28 pg 25-34 Automated erythrocyte mean corpuscular h emoglobin concentration measurement (mass/volume) 32 g/dL 32-36 Automated erythrocyte distribution width ratio 14. 9 % 10.0- 14.5 Automated blood platelet count (count/volume) 205 10*3/uL 130-400 Automated blood platelet mean volume measurement 9.4 [foz_us] 7.4-10.4 Comprehensive metabolic panel - 03/24/19 14:55 Serum or plasma sodium measurement (moles/volume) 138 mmol/L 135-145 Serum or plasma potassium measurement (moles/volume) 3.9 mmol/L 3.6-5.0 Serum or plasma chloride measurement (moles/volume) 103 mmol/L 98-107 Carbon dioxide 26 mmol/L 21-32 Serum or plasma anion gap determination (moles/volume) 9 mmol/L 5-14 Serum or plasma urea nitrogen measurement (mass/volume ) 16 mg/dL 7-18 Serum or plasma creatinine measurement (mass/volume) 0.94 mg/dL 0.60-1.30 Serum or plasma urea nitrogen/creatinine mass ratio 17 NRG Serum or plasma creatinine measurement w ith calculation of estimated glomerular filtration rate > NRG Serum or plasma glucose measurement (mass/volume) 133 mg/dL 70-105 Serum or plasma calcium measurement (mass/volume) 9.1 mg/dL 8.5-10.1 Serum or plasma total bilirubin measurement (mass/volu me) 0.4 mg/dL 0.1-1.0 Serum or plasma alkaline phosphatase sergio surement (enzymatic activity/volume) 51 U/L 40-136 Serum or plasma aspartate aminotransfera se measurement (enzymatic activity/volume) 12 U/L 5-34 Serum or plasma alanine aminotransferase measurement (enzymatic activity/volume) 12 U/L 0-55 Serum or plasma protein measurement (mass/volume) 6.7 g/dL 6.4-8.2 Serum or plasma albumin measurement (mass/volume) 4.2 g/dL 3.2-4.5 CALCIUM CORRECTED 8.9 mg/dL 8.5-10.1 Serum or plasma phosphate measurement (m ass/volume) - 03/24/19 14:55 Serum or plasma phosphate measurement (mass/volume) 2.8 mg/dL 2.3-4.7 Magnesium - 03/24/19 14:55 Magnesium 2.2 mg/dL 1.8-2.4 Serum or plasma lithium measurement (mol es/volume) - 03/24/19 14:55 BNP PT 22.6 pg/mL <100.0 Capillary blood glucose measurement by g lucometer (mass/volume) - 03/24/19 16:44 Capillary blood glucose measurement by glucometer (mas s/volume) 264 mg/dL 70-110 Arterial blood gas measurement - 9 17:46 Blood pCO2 40 mm[Hg] 35-45 Blood pO2 89 mm[Hg] 79-93 Arterial blood bicarbonate measurement (moles/volume) 25 mmol/L 23-27 Arterial blood base excess by calculation 1.1 mmol /L -2.5-2.5 Arterial blood oxygen saturation measurement 97 % 94-100 * Inhaled oxygen flow rate 3 NRG Arterial blood pH measurement with patient temperature correction 7.41 7.37-7.43 Arterial blood carbon dioxide, total measurement (mole s/volume) 26.5 mmol/L 21.0-31.0 Body site RT RAD NRG Assessment of wrist artery patency prior to arterial p uncture YES-POS NRG Setting of ventilation mode NO NR G Measurement of body temperature 97.4 NRG Capillary blood glucose measurement by g lucometer (mass/volume) - 03/24/19 20:35 Capillary blood glucose measurement by glucometer (mas s/volume) 223 mg/dL 70-110 Capillary blood glucose measurement by g lucometer (mass/volume) - 03/25/19 05:36 Capillary blood glucose measurement by glucometer (mas s/volume) 216 mg/dL 70-110 Complete blood count (CBC) with automate d white blood cell (WBC) differential - 03/25/19 05:45 Blood leukocytes automated count (number/volume) 8.2 10*3/uL 4.3-11.0 Blood erythrocytes automated count (number/volume) 3.92 10*6/uL 4.35-5.85 Venous blood hemoglobin measurement (mass/volume) 10.6 g/dL 13.3-17.7 Blood hematocrit (volume fraction) 34 % 40-54 Automated erythrocyte mean corpuscular volume 86 [ foz_us] 80-99 Automated erythrocyte mean corpuscular h emoglobin (mass per erythrocyte) 27 pg 25-34 Automated erythrocyte mean corpuscular h emoglobin concentration measurement (mass/volume) 31 g/dL 32-36 Automated erythrocyte distribution width ratio 14. 6 % 10.0- 14.5 Automated blood platelet count (count/volume) 197 10*3/uL 130-400 Automated blood platelet mean volume measurement 9.5 [foz_us] 7.4-10.4 Automated blood neutrophils/100 leukocytes 88 % 42-75 Automated blood lymphocytes/100 leukocytes 11 % 12-44 Blood monocytes/100 leukocytes 1 % 0-12 Automated blood eosinophils/100 leukocytes 0 % 0-10 Automated blood basophils/100 leukocytes 0 % 0-10 Blood neutrophils automated count (number/volume) 7.2 10*3 1.8-7.8 Blood lymphocytes automated count (number/volume) 0.9 10*3 1.0-4.0 Blood monocytes automated count (number/volume) 0. 1 10*3 0.0-1.0 Automated eosinophil count 0.0 10*3/uL 0 .0-0.3 Automated blood basophil count (count/volume) 0.0 10*3/uL 0.0-0.1 Whole blood basic metabolic panel - 11/12 05:45 Serum or plasma sodium measurement (moles/volume) 135 mmol/L 135-145 Serum or plasma potassium measurement (moles/volume) 4.8 mmol/L 3.6-5.0 Serum or plasma chloride measurement (moles/volume) 102 mmol/L 98-107 Carbon dioxide 20 mmol/L 21-32 Serum or plasma anion gap determination (moles/volume) 13 mmol/L 5-14 Serum or plasma urea nitrogen measurement (mass/volume ) 18 mg/dL 7-18 Serum or plasma creatinine measurement (mass/volume) 1.00 mg/dL 0.60-1.30 Serum or plasma urea nitrogen/creatinine mass ratio 18 NRG Serum or plasma creatinine measurement w ith calculation of estimated glomerular filtration rate > NRG Serum or plasma glucose measurement (mass/volume) 216 mg/dL 70-105 Serum or plasma calcium measurement (mass/volume) 9.1 mg/dL 8.5-10.1 Serum or plasma phosphate measurement (m ass/volume) - 03/25/19 05:45 Serum or plasma phosphate measurement (mass/volume) 3.5 mg/dL 2.3-4.7 Magnesium - 03/25/19 05:45 Magnesium 2.3 mg/dL 1.8-2.4 Capillary blood glucose measurement by g lucometer (mass/volume) - 03/25/19 11:40 Capillary blood glucose measurement by glucometer (mas s/volume) 231 mg/dL 70-110 Capillary blood glucose measurement by g lucometer (mass/volume) - 03/25/19 16:03 Capillary blood glucose measurement by glucometer (mas s/volume) 247 mg/dL 70-110 Capillary blood glucose measurement by g lucometer (mass/volume) - 03/25/19 20:55 Capillary blood glucose measurement by glucometer (mas s/volume) 243 mg/dL 70-110 Complete blood count (CBC) with automate d white blood cell (WBC) differential - 03/26/19 05:30 Blood leukocytes automated count (number/volume) 12.9 10*3/uL 4.3-11.0 Blood erythrocytes automated count (number/volume) 3.63 10*6/uL 4.35-5.85 Venous blood hemoglobin measurement (mass/volume) 10.3 g/dL 13.3-17.7 Blood hematocrit (volume fraction) 31 % 40-54 Automated erythrocyte mean corpuscular volume 86 [ foz_us] 80-99 Automated erythrocyte mean corpuscular h emoglobin (mass per erythrocyte) 28 pg 25-34 Automated erythrocyte mean corpuscular h emoglobin concentration measurement (mass/volume) 33 g/dL 32-36 Automated erythrocyte distribution width ratio 14. 7 % 10.0- 14.5 Automated blood platelet count (count/volume) 203 10*3/uL 130-400 Automated blood platelet mean volume measurement 9.4 [foz_us] 7.4-10.4 Automated blood neutrophils/100 leukocytes 88 % 42-75 Automated blood lymphocytes/100 leukocytes 8 % 12-44 Blood monocytes/100 leukocytes 4 % 0-12 Automated blood eosinophils/100 leukocytes 0 % 0-10 Automated blood basophils/100 leukocytes 0 % 0-10 Blood neutrophils automated count (number/volume) 11.4 10*3 1.8-7.8 Blood lymphocytes automated count (number/volume) 1.0 10*3 1.0-4.0 Blood monocytes automated count (number/volume) 0. 5 10*3 0.0-1.0 Automated eosinophil count 0.0 10*3/uL 0 .0-0.3 Automated blood basophil count (count/volume) 0.0 10*3/uL 0.0-0.1 Whole blood basic metabolic panel - 12/10 05:30 Serum or plasma sodium measurement (moles/volume) 135 mmol/L 135-145 Serum or plasma potassium measurement (moles/volume) 4.1 mmol/L 3.6-5.0 Serum or plasma chloride measurement (moles/volume) 100 mmol/L 98-107 Carbon dioxide 23 mmol/L 21-32 Serum or plasma anion gap determination (moles/volume) 12 mmol/L 5-14 Serum or plasma urea nitrogen measurement (mass/volume ) 24 mg/dL 7-18 Serum or plasma creatinine measurement (mass/volume) 0.99 mg/dL 0.60-1.30 Serum or plasma urea nitrogen/creatinine mass ratio 24 NRG Serum or plasma creatinine measurement w ith calculation of estimated glomerular filtration rate > NRG Serum or plasma glucose measurement (mass/volume) 225 mg/dL 70-105 Serum or plasma calcium measurement (mass/volume) 8.7 mg/dL 8.5-10.1 Serum or plasma phosphate measurement (m ass/volume) - 03/26/19 05:30 Serum or plasma phosphate measurement (mass/volume) 3.0 mg/dL 2.3-4.7 Magnesium - 03/26/19 05:30 Magnesium 2.6 mg/dL 1.8-2.4 Capillary blood glucose measurement by g lucometer (mass/volume) - 03/26/19 05:32 Capillary blood glucose measurement by glucometer (mas s/volume) 219 mg/dL 70-110 Capillary blood glucose measurement by g lucometer (mass/volume) - 03/26/19 11:12 Capillary blood glucose measurement by glucometer (mas s/volume) 185 mg/dL 70-110 Complete blood count (CBC) with automate d white blood cell (WBC) differential - 07/17/19 05:14 Blood leukocytes automated count (number/volume) 8.1 10*3/uL 4.3-11.0 Blood erythrocytes automated count (number/volume) 4.23 10*6/uL 4.35-5.85 Venous blood hemoglobin measurement (mass/volume) 12.1 g/dL 13.3-17.7 Blood hematocrit (volume fraction) 38 % 40-54 Automated erythrocyte mean corpuscular volume 89 [ foz_us] 80-99 Automated erythrocyte mean corpuscular h emoglobin (mass per erythrocyte) 29 pg 25-34 Automated erythrocyte mean corpuscular h emoglobin concentration measurement (mass/volume) 32 g/dL 32-36 Automated erythrocyte distribution width ratio 15. 3 % 10.0- 14.5 Automated blood platelet count (count/volume) 199 10*3/uL 130-400 Automated blood platelet mean volume measurement 9.0 [foz_us] 7.4-10.4 Automated blood neutrophils/100 leukocytes 73 % 42-75 Automated blood lymphocytes/100 leukocytes 8 % 12-44 Blood monocytes/100 leukocytes 16 % 0-12 Automated blood eosinophils/100 leukocytes 2 % 0-10 Automated blood basophils/100 leukocytes 0 % 0-10 Blood neutrophils automated count (number/volume) 5.9 10*3 1.8-7.8 Blood lymphocytes automated count (number/volume) 0.7 10*3 1.0-4.0 Blood monocytes automated count (number/volume) 1. 3 10*3 0.0-1.0 Automated eosinophil count 0.2 10*3/uL 0 .0-0.3 Automated blood basophil count (count/volume) 0.0 10*3/uL 0.0-0.1 Comprehensive metabolic panel - 07/17/19 05:14 Serum or plasma sodium measurement (moles/volume) 137 mmol/L 135-145 Serum or plasma potassium measurement (moles/volume) 4.6 mmol/L 3.6-5.0 Serum or plasma chloride measurement (moles/volume) 98 mmol/L 98-107 Carbon dioxide 26 mmol/L 21-32 Serum or plasma anion gap determination (moles/volume) 13 mmol/L 5-14 Serum or plasma urea nitrogen measurement (mass/volume ) 19 mg/dL 7-18 Serum or plasma creatinine measurement (mass/volume) 1.09 mg/dL 0.60-1.30 Serum or plasma urea nitrogen/creatinine mass ratio 17 NRG Serum or plasma creatinine measurement w ith calculation of estimated glomerular filtration rate > NRG Serum or plasma glucose measurement (mass/volume) 130 mg/dL 70-105 Serum or plasma calcium measurement (mass/volume) 9.6 mg/dL 8.5-10.1 Serum or plasma total bilirubin measurement (mass/volu me) 0.5 mg/dL 0.1-1.0 Serum or plasma alkaline phosphatase sergio surement (enzymatic activity/volume) 61 U/L 40-136 Serum or plasma aspartate aminotransfera se measurement (enzymatic activity/volume) 10 U/L 5-34 Serum or plasma alanine aminotransferase measurement (enzymatic activity/volume) < U/L 0-55 Serum or plasma protein measurement (mass/volume) 7.1 g/dL 6.4-8.2 Serum or plasma albumin measurement (mass/volume) 4.1 g/dL 3.2-4.5 CALCIUM CORRECTED 9.5 mg/dL 8.5-10.1 Serum or plasma troponin i.cardiac measu rement (mass/volume) - 07/17/19 05:14 Serum or plasma troponin i.cardiac measurement (mass/v olume) < ng/mL <0.028 Serum or plasma C reactive protein measu rement (mass/volume) - 07/17/19 05:14 Serum or plasma C reactive protein measurement (mass/v olume) 10.13 mg/dL 0.00-0.50 Serum or plasma lithium measurement (mol es/volume) - 07/17/19 05:14 BNP PT 29.3 pg/mL <100.0 Sputum Gram stain - 07/17/19 05:54 Sputum Gram stain MIXED BACTERIAL MARIO NRG Bacterial sputum culture - 07/17/19 05:5 4 FREE TEXT EXTERNAL SUSCEPTIBILITY REPORTED 9, 2411. NRG QUANTITY OF GROWTH SMALL AMOUNT NRG MRSA AGAR SEE COMMENT FOR THIS ISOLATE NRG PBP2 METHICILLIN SENSITIVE STAPH AUREUS NRG Bacterial sputum culture USUAL RESP NRG Dirithromycin susceptibility test by dis k diffusion - 07/17/19 05:54 Oxacillin susceptibility test by minimum inhibitory co ncentration 1 NRG Clindamycin susceptibility test by minimum inhibitory concentration R NRG Erythromycin susceptibility test by minimum inhibitory concentration > NRG Trimethoprim/sulfamethoxazole susceptibi lity test by minimum inhibitoryconcentration <= NRG Vancomycin susceptibility test by minimum inhibitory c oncentration 1 NRG Levofloxacin susceptibility test by minimum inhibitory concentration <= NRG Rifampin susceptibility test by minimum inhibitory con centration <= NRG Cefazolin susceptibility test by minimum inhibitory co ncentration <= NRG Linezolid susceptibility test by minimum inhibitory co ncentration 2 NRG Penicillin G susceptibility test by minimum inhibitory concentration > NRG Moxifloxacin susceptibility test by minimum inhibitory concentration <= NRG Minocycline susc KARLENE <= NRG Capillary blood glucose measurement by g lucometer (mass/volume) - 07/29/19 12:34 Capillary blood glucose measurement by glucometer (mas s/volume) 100 mg/dL 70-110 Capillary blood glucose measurement by g lucometer (mass/volume) - 07/31/19 07:33 Capillary blood glucose measurement by glucometer (mas s/volume) 123 mg/dL 70-110 Complete blood count (CBC) with automate d white blood cell (WBC) differential - 08/14/19 12:02 Blood leukocytes automated count (number/volume) 4.8 10*3/uL 4.3-11.0 Blood erythrocytes automated count (number/volume) 4.24 10*6/uL 4.35-5.85 Venous blood hemoglobin measurement (mass/volume) 12.5 g/dL 13.3-17.7 Blood hematocrit (volume fraction) 38 % 40-54 Automated erythrocyte mean corpuscular volume 91 [ foz_us] 80-99 Automated erythrocyte mean corpuscular h emoglobin (mass per erythrocyte) 30 pg 25-34 Automated erythrocyte mean corpuscular h emoglobin concentration measurement (mass/volume) 33 g/dL 32-36 Automated erythrocyte distribution width ratio 16. 7 % 10.0- 14.5 Automated blood platelet count (count/volume) 165 10*3/uL 130-400 Automated blood platelet mean volume measurement 9.2 [foz_us] 7.4-10.4 Automated blood neutrophils/100 leukocytes 71 % 42-75 Automated blood lymphocytes/100 leukocytes 7 % 12-44 Blood monocytes/100 leukocytes 19 % 0-12 Automated blood eosinophils/100 leukocytes 3 % 0-10 Automated blood basophils/100 leukocytes 1 % 0-10 Blood neutrophils automated count (number/volume) 3.4 10*3 1.8-7.8 Blood lymphocytes automated count (number/volume) 0.3 10*3 1.0-4.0 Blood monocytes automated count (number/volume) 0. 9 10*3 0.0-1.0 Automated eosinophil count 0.2 10*3/uL 0 .0-0.3 Automated blood basophil count (count/volume) 0.0 10*3/uL 0.0-0.1 Comprehensive metabolic panel - 08/14/19 12:02 Serum or plasma sodium measurement (moles/volume) 138 mmol/L 135-145 Serum or plasma potassium measurement (moles/volume) 4.4 mmol/L 3.6-5.0 Serum or plasma chloride measurement (moles/volume) 101 mmol/L 98-107 Carbon dioxide 27 mmol/L 21-32 Serum or plasma anion gap determination (moles/volume) 10 mmol/L 5-14 Serum or plasma urea nitrogen measurement (mass/volume ) 20 mg/dL 7-18 Serum or plasma creatinine measurement (mass/volume) 1.04 mg/dL 0.60-1.30 Serum or plasma urea nitrogen/creatinine mass ratio 19 NRG Serum or plasma creatinine measurement w ith calculation of estimated glomerular filtration rate > NRG Serum or plasma glucose measurement (mass/volume) 142 mg/dL 70-105 Serum or plasma calcium measurement (mass/volume) 9.4 mg/dL 8.5-10.1 Serum or plasma total bilirubin measurement (mass/volu me) 0.3 mg/dL 0.1-1.0 Serum or plasma alkaline phosphatase sergio surement (enzymatic activity/volume) 55 U/L 40-136 Serum or plasma aspartate aminotransfera se measurement (enzymatic activity/volume) 15 U/L 5-34 Serum or plasma alanine aminotransferase measurement (enzymatic activity/volume) 17 U/L 0-55 Serum or plasma protein measurement (mass/volume) 6.7 g/dL 6.4-8.2 Serum or plasma albumin measurement (mass/volume) 4.3 g/dL 3.2-4.5 CALCIUM CORRECTED 9.2 mg/dL 8.5-10.1 Manual absolute plasma cell count - 07/26 10/12 12:02 Blood monocytes/100 leukocytes 9 % NRG Manual blood segmented neutrophils/100 leukocytes 70 % NRG Blood band neutrophils/100 leukocytes 5 % NRG Manual blood lymphocytes/100 leukocytes 10 % NRG Manual eosinophils/100 leukocytes in nose 3 % NRG Manual blood basophils/100 leukocytes 1 % NRG Blood anisocytosis detection by light microscopy S LIGHT NRG Manual blood myelocytes/100 leukocytes 2 % NRG Complete blood count (CBC) with automate d white blood cell (WBC) differential - 09/15/19 12:29 Blood leukocytes automated count (number/volume) 6.1 10*3/uL 4.3-11.0 Blood erythrocytes automated count (number/volume) 4.07 10*6/uL 4.35-5.85 Venous blood hemoglobin measurement (mass/volume) 12.1 g/dL 13.3-17.7 Blood hematocrit (volume fraction) 37 % 40-54 Automated erythrocyte mean corpuscular volume 91 [ foz_us] 80-99 Automated erythrocyte mean corpuscular h emoglobin (mass per erythrocyte) 30 pg 25-34 Automated erythrocyte mean corpuscular h emoglobin concentration measurement (mass/volume) 33 g/dL 32-36 Automated erythrocyte distribution width ratio 15. 3 % 10.0- 14.5 Automated blood platelet count (count/volume) 210 10*3/uL 130-400 Automated blood platelet mean volume measurement 8.9 [foz_us] 7.4-10.4 Automated blood neutrophils/100 leukocytes 82 % 42-75 Automated blood lymphocytes/100 leukocytes 6 % 12-44 Blood monocytes/100 leukocytes 9 % 0-12 Automated blood eosinophils/100 leukocytes 3 % 0-10 Automated blood basophils/100 leukocytes 0 % 0-10 Blood neutrophils automated count (number/volume) 5.0 10*3 1.8-7.8 Blood lymphocytes automated count (number/volume) 0.4 10*3 1.0-4.0 Blood monocytes automated count (number/volume) 0. 6 10*3 0.0-1.0 Automated eosinophil count 0.2 10*3/uL 0 .0-0.3 Automated blood basophil count (count/volume) 0.0 10*3/uL 0.0-0.1 Manual absolute plasma cell count - 08/25 12/10 12:29 Blood monocytes/100 leukocytes 10 % NRG Manual blood segmented neutrophils/100 leukocytes 75 % NRG Blood band neutrophils/100 leukocytes 8 % NRG Manual blood lymphocytes/100 leukocytes 6 % NRG Manual eosinophils/100 leukocytes in nose 1 % NRG Manual blood basophils/100 leukocytes 0 % NRG Blood erythrocyte morphology finding identification NORMAL NRG THYROID STIMULATING HORMONE - 09/15/19 1 2:29 THYROID STIMULATING HORMONE 1.38 u[iU]/mL 0.35-4.94 Complete blood count (CBC) with automate d white blood cell (WBC) differential - 09/18/19 10:55 Blood leukocytes automated count (number/volume) 7.3 10*3/uL 4.3-11.0 Blood erythrocytes automated count (number/volume) 4.36 10*6/uL 4.35-5.85 Venous blood hemoglobin measurement (mass/volume) 13.0 g/dL 13.3-17.7 Blood hematocrit (volume fraction) 40 % 40-54 Automated erythrocyte mean corpuscular volume 91 [ foz_us] 80-99 Automated erythrocyte mean corpuscular h emoglobin (mass per erythrocyte) 30 pg 25-34 Automated erythrocyte mean corpuscular h emoglobin concentration measurement (mass/volume) 33 g/dL 32-36 Automated erythrocyte distribution width ratio 15. 5 % 10.0- 14.5 Automated blood platelet count (count/volume) 261 10*3/uL 130-400 Automated blood platelet mean volume measurement 9.3 [foz_us] 7.4-10.4 Automated blood neutrophils/100 leukocytes 85 % 42-75 Automated blood lymphocytes/100 leukocytes 4 % 12-44 Blood monocytes/100 leukocytes 11 % 0-12 Automated blood eosinophils/100 leukocytes 0 % 0-10 Automated blood basophils/100 leukocytes 0 % 0-10 Blood neutrophils automated count (number/volume) 6.2 10*3 1.8-7.8 Blood lymphocytes automated count (number/volume) 0.3 10*3 1.0-4.0 Blood monocytes automated count (number/volume) 0. 8 10*3 0.0-1.0 Automated eosinophil count 0.0 10*3/uL 0 .0-0.3 Automated blood basophil count (count/volume) 0.0 10*3/uL 0.0-0.1 Influenza virus A and B antigen detectio n - 09/18/19 10:55 FLU RESULT NEGATIVE FOR INFLUENZA A AND B ANTIGENS BY IA NRG Blood lactic acid measurement (moles/vol ume) - 09/18/19 10:55 Blood lactic acid measurement (moles/volume) 2.06 mmol/L 0.50-2.00 Comprehensive metabolic panel - 09/18/19 10:55 Serum or plasma sodium measurement (moles/volume) 138 mmol/L 135-145 Serum or plasma potassium measurement (moles/volume) 4.4 mmol/L 3.6-5.0 Serum or plasma chloride measurement (moles/volume) 97 mmol/L 98-107 Carbon dioxide 27 mmol/L 21-32 Serum or plasma anion gap determination (moles/volume) 14 mmol/L 5-14 Serum or plasma urea nitrogen measurement (mass/volume ) 23 mg/dL 7-18 Serum or plasma creatinine measurement (mass/volume) 0.94 mg/dL 0.60-1.30 Serum or plasma urea nitrogen/creatinine mass ratio 24 NRG Serum or plasma creatinine measurement w ith calculation of estimated glomerular filtration rate > NRG Serum or plasma glucose measurement (mass/volume) 147 mg/dL 70-105 Serum or plasma calcium measurement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 KAYE [employer] [facility] RAD R91.1 [id number] 07/06/2016 10:57:00 23:59:59 CLS Outpatient RANDI SHAFFER FACC, TARI BRYANT CC DS [facility] CARD CAD,SOB [id number] 06/22/2016 18:26:00 09:50:00 DIS Inpatient ALIZE BARAKAT DOQUELINE S Via [facility] ICU CHEST PAIN/RYANNE NA [id number] 06/01/2016 19:38:00 17:50:00 DIS Inpatient GASPER JOHNSON LITA S Via [facility] ICU CHEST PAIN; NUBIA VATED TROPONIN [id number] 06/01/2016 16:53:00 23:59:59 CLS Outpatient JARAD COPPOLA [employer]IV[employer] [facility] CARD CHEST PAIN SYNDROME,SOB,FATIGUE [id number] 02/14/2016 11:31:00 23:59:59 CLS Outpatient GASPER JOHNSON LITA S [facility] RAD HEEL PAIN [id number] 12/21/2015 08:24:00 23:59:59 CLS Outpatient GASPER JOHNSON LITA S [facility] RAD NECK MASS [id number] 06/24/2015 08:00:00 23:59:59 CLS Preadmit GASPER JOHNSON LITA S Via [facility] PULM COPD [id number] 05/27/2015 10:00:00 00:01:00 DIS Outpatient GASPER JOHNSON LITA S [facility] PULM COPD [id number] 05/04/2015 10:00:00 015 00:01:00 DIS Outpatient ALIZE BARAKAT DOQUELINE S [facility] PULM COPD [id number] 02/01/2015 12:53:00 015 23:59:59 CLS Outpatient RAKEL THORPE DO Via [facility] RT COPD,NODULES [id number] 01/28/2015 10:00:00 015 00:01:00 DIS Outpatient GASPER JOHNSON LITA S [facility] PULM COPD [id number] 12/27/2014 17:23:00 015 19:17:00 DIS Emergency TATA HERMOSILLO APRN [facility] ER SOA [id number] 10/21/2014 11:34:00 015 10:25:00 DIS Inpatient JASMINNDALIZE PABLO DOQUELINE S [facility] 4TH ACUTE RESPIRATO RY DISTRESS COPD [id number] 10/20/2014 10:31:00 015 23:59:59 CLS Outpatient GASPER JOHNSON LITA S Via [facility] RAD COPD, DYSPENEA [id number] 09/09/2014 03:50:00 014 10:37:00 DIS Inpatient ALIZE BARAKAT DOQUELINE S Via [facility] 4TH RLL PNEUMONIA W /HYPOXIA [id number] 09/03/2014 07:38:00 014 14:15:00 DIS Inpatient GASPER JOHNSON LITA S Via [facility] 4TH COPD EXACERBATI ON [id number] 04/28/2014 07:51:00 014 23:59:59 CLS Outpatient GASPER JOHNSON LITA S Via [facility] CARD DYSPNEA,CP,FAMI LIAIL CAD [id number] 08/13/2013 11:44:00 013 23:59:59 CLS Outpatient JASMINNDALIZE PABLO DOQUELINE S [facility] RAD PNEUMONIA,COPD [id number] 08/06/2013 09:47:00 11/16/2 013 10:35:00 DIS Inpatient LITA BARAKAT DO Via [facility] 4TH COPD,HYPOXIA,VT OBABLE PNEUMONIA [id number] 12/30/2019 22:36:00 Document Registration [id number] 04/30/2018 18:50:00 Document Registration [id number] 06/28/2016 07:00:00 Document Registration [id number] 10/20/2014 10:31:00 Document Registration [id number] 10/20/2014 10:31:00 Document Registration [id number] 10/20/2014 10:31:00 Document Registration [id number] 10/20/2014 10:31:00 Document Registration [id number] 10/20/2014 10:31:00 Document Registration [id number] 12/22/2009 10:36:00 Document Registration [id number] 12/17/2009 06:57:00 Document Registration [id number] 12/14/2009 08:05:00 Document Registration [id number] 08/07/2006 11:30:00 Document Registration 10/201709/10/2019 00:15:33 09/10/2019 23:59: 59 CLS Outpatient Lita Barakat 981 11/12/2019 11:27:00 Document Registration
[2019-12-31 03:17] LABS: BASOPHILS % (AUTO) 0 % (0-10); EOSINOPHILS # (AUTO) 0.1 10^3/uL (0.0-0.3); EOSINOPHILS % (AUTO) 2 % (0-10); HEMATOCRIT 34 % (40-54); HEMOGLOBIN 11.3 G/DL (13.3-17.7); LYMPHOCYTES # (AUTO) 0.8 X 10^3 (1.0-4.0); LYMPHOCYTES % (AUTO) 13 % (12-44); MEAN CORPUSCULAR HEMOGLOBIN 30 PG (25-34); MEAN CORPUSCULAR HGB CONC 33 G/DL (32-36); MEAN CORPUSCULAR VOLUME 92 FL (80-99); MONOCYTES # (AUTO) 0.6 X 10^3 (0.0-1.0); MONOCYTES % (AUTO) 10 % (0-12); NEUTROPHILS # (AUTO) 4.9 X 10^3 (1.8-7.8); NEUTROPHILS % (AUTO) 76 % (42-75); PLATELET COUNT 196 10^3/uL (130-400); RED CELL DISTRIBUTION WIDTH 13.8 % (10.0-14.5); WHITE BLOOD COUNT 6.4 10^3/uL (4.3-11.0)
[2019-12-31 03:29] LABS: ALBUMIN 3.8 GM/DL (3.2-4.5); CHLORIDE 97 MMOL/L (98-107); POTASSIUM 4.3 MMOL/L (3.6-5.0); SODIUM 134 MMOL/L (135-145)
[2019-12-31 03:30] LABS: CALCIUM 9.3 MG/DL (8.5-10.1)
[2019-12-31 03:31] LABS: TRIGLYCERIDES 114 MG/DL (<150); VLDL CHOLESTEROL 23 MG/DL (5-40)
[2019-12-31 03:32] LABS: GLUCOSE 121 MG/DL (70-105)
[2019-12-31 03:33] LABS: BILIRUBIN,TOTAL 0.4 MG/DL (0.1-1.0); CARBON DIOXIDE 29 MMOL/L (21-32)
[2019-12-31 03:35] LABS: ALKALINE PHOSPHATASE 50 U/L (40-136); CREATININE SERUM 0.94 MG/DL (0.60-1.30); GFR ESTIMATED > 60
[2019-12-31 03:36] LABS: CHOLESTEROL 153 MG/DL (< 200)
[2019-12-31 03:37] LABS: BUN/CREATININE RATIO 26; HDL CHOLESTEROL 42 MG/DL (40-60)
[2019-12-31 03:39] LABS: ALANINE AMINOTRANSFERASE < 6 U/L (0-55)
[2019-12-31] MEDS: inSUlin ASPART (NovoLOG) 1 UNIT/0.01 ML (CHARGE PER UNIT) SC SCH ×2 (05:28→12:29)
--- NOTE | 2019-12-31 05:29 | Diagnostic Imaging Report ---
EXAMINATION: AP upright portable chest INDICATION: Difficulty breathing, shortness of breath, and chest pain. COMPARISON: Multiple priors, most recent performed on 12/22/2019. FINDINGS: There is mild hyperexpansion of the lungs and flattening of the hemidiaphragms, likely reflecting chronic changes of COPD. There is mild bibasilar atelectasis/scarring. The lungs are otherwise clear. There is unchanged prominence of the central pulmonary vasculature, without overt edema. Heart size and mediastinal contours are normal and unchanged. No acute osseous abnormality is demonstrated. Chronic fracture deformity of the mid left clavicle is demonstrated. IMPRESSION: Mild bibasilar atelectasis/scarring, otherwise no radiographic evidence of acute chest disease. No significant change from prior. Dictated by: Dictated on workstation # [id number]
--- NOTE | 2019-12-31 08:01 | Consultation-Cardiology ---
HPI-Cardiology Cardiology Consultation: Date of Consultation 12/31/19 Time Seen by a Provider: 08:30 Date of Admission 12-30-2019 Attending Physician Lita Barakat DO Admitting Physician Lita Barakat DO Consulting Physician Yovana Stephens MD Primary Ground Control Approach Technician: Dr. Lainez HPI: Chief Complaint: Chest pain Mr. Huerta is a 79 year old male admitted to ICU 6 from the ED with c/o CP. His primary motor vehicle examiner is Dr. Lainez at [facility]. He reports he saw him last about 6 months ago. He denies any recent cardiac testing or cardiac cath or coronary stent placement in the last year. He states he was getting ready to go to bed last night when he had an episode of mid-sternal chest pain which did not radiate. He reports it as a sharp, pressure. He reports he felt some nausea with the discomfort. He reports he had some increase in SOB at the time. He reports he took 2 sublingual nitro at home which did resolve his chest pain and he has had no recurrence. He denies any LE swelling. He denies any palpitations, syncope or near syncope. He states he is feeling better this morning and feels his SOB is better than yesterday. He denies any fever, chills, n/v/d. Review of Systems-Cardiology Review of Systems Constitutional: No chills, No fever; malaise Eyes: No vision change Ears/Nose/Throat: No epistaxis, No nasal drainage, No recent hearing loss Respiratory: As described under HPI Cardiovascular: As described under HPI Gastrointestinal: No constipation, No diarrhea; nausea; No vomiting Genitourinary: No dysuria, No hematuria Musculoskeletal: no symptoms reported Skin: No rash on exposed areas, No ulcerations on exposed areas Psychiatric/Neurological: No anxiety, No depression, No seizure, No focal w eakness, No syncope Hematologic: No bleeding abnormalities PQU-Mjrjoq-Kiaeqy Hx Patient Social History Alcohol Use: Occasionally Uses Recreational Drug Use: No Smoking Status: Former Smoker Former smoker/When Quit: Sep 24, 1994 Type Used: Cigars, Cigarettes 2nd Hand Smoke Exposure: Yes Recent Foreign Travel: No Recent Infectious Disease Expo: No Hospitalization with Isolation: Denies Immunizations Up To Date Tetanus Booster (TDap): Unknown Date of Pneumonia Vaccine: Sep 25, 2018 Date of Influenza Vaccine: Sep 25, 2018 Past Medical History PMH As described under Assessment. Family Medical History Family Medical History: He reports his father had CAD, CVA and CHF. His moher had CAD and HTN. Family History: 03 FATHER Congenital heart disease Congestive heart failure Family history: Cardiovascular disease Family history: Diabetes mellitus Hearing loss Heart disease History of - respiratory disease Kidney disease Myocardial infarction Stroke 03 MOTHER Cataract Chest pain Family history: Cardiovascular disease Family history: Gastrointestinal disease Family history: Hypertension 09 BROTHER Cancer Cancer of colon Allergies and Home Medications Allergies Coded Allergies: hydrocodone (Verified Allergy, Mild, NAUSEA, 07/25/19) oxycodone (Verified Allergy, Mild, NAUSEA, 07/25/19) Home Medications Albuterol Sulfate 1 Puff Puff, 2 PUFF INH Q4H PRN for SHORTNESS OF BREATH, (Reported) 1 PUFF = 90 MCG Amlodipine Besylate 5 Mg Tablet, 5 MG PO DAILY, (Reported) Aspirin 81 Mg Tablet.dr, 81 MG PO DAILY, (Reported) Azithromycin 500 Mg Tablet, 500 MG PO DAILY Prescribed by: CIERA MADDEN on 12/23/19 0012 Budesonide/Formoterol Fumarate 10.2 Gm Hfa.aer.ad, 2 PUFF IH BID PRN for SHORTNESS OF BREATH, (Reported) Carbidopa/Levodopa 1 Each Tablet.er, 1 TAB PO TID, (Reported) Insulin Aspart 100 Unit/1 Ml Susp, 10 UNIT SQ AC, (Reported) Insulin Detemir 100 Unit/1 Ml Insuln.pen, 20 UNITS SC HS, (Reported) Ipratropium/Albuterol Sulfate 3 Ml Ampul.neb, 3 ML NEB Q4H, (Reported) Isosorbide Mononitrate 30 Mg Tab.er.24h, 30 MG PO DAILY, (Reported) Losartan Potassium 100 Mg Tablet, 100 MG PO DAILY, (Reported) Omeprazole 20 Mg Tablet.dr, 20 MG PO DAILY Prescribed by: STEVAN PATTON on 07/29/19 1446 Pantoprazole Sodium 40 Mg Tablet.dr, 40 MG PO DAILY, (Reported) Prednisone 10 Mg Tab.ds.pk, 10 MG PO DAILY Take 6 tabs(60mg)daily,decrease by 1 tab(10mg)every other day. Prescribed by: LELE DEGROOT on 09/18/19 1437 Ropinirole HCl 4 Mg Tablet, 12 MG PO HS, (Reported) TAKES 3 (4MG) TABLETS Physical Exam-Cardiology Physical Exam Vital Signs/I&O 12/30/19 12/30/19 12/31/19 12/31/19 22:20 22:20 00:01 00:12 Temp 36.8 36.8 Pulse 66 66 Resp 21 21 B/P (MAP) 133/60 (84) 129/61 (84) Pulse Ox 95 94 95 O2 Delivery Nasal Cannula Nasal Cannula Nasal Cannula Nasal Cannula O2 Flow Rate 2.00 4.0 4.0 12/31/19 12/31/19 12/31/19 12/31/19 00:20 00:26 00:26 00:28 Temp 37.0 37.0 Pulse 65 64 64 Resp 18 18 B/P (MAP) 144/69 (94) 144/69 Pulse Ox 96 96 96 O2 Delivery Nasal Cannula Nasal Cannula Nasal Cannula O2 Flow Rate 4.00 4.00 4.00 4.00 12/31/19 12/31/19 12/31/19 12/31/19 00:30 00:45 01:00 01:00 Pulse 63 61 65 65 Resp 14 22 23 B/P (MAP) 136/66 (89) 118/65 (82) 117/67 (84) Pulse Ox 95 99 98 O2 Delivery Nasal Cannula Nasal Cannula Nasal Cannula O2 Flow Rate 4.00 4.00 4.00 12/31/19 12/31/19 12/31/19 12/31/19 01:15 01:30 01:45 02:00 Pulse 63 60 63 60 Resp 23 14 28 14 B/P (MAP) 133/68 (89) 134/66 (88) 120/51 (74) 140/67 (91) Pulse Ox 98 100 99 93 O2 Delivery Nasal Cannula Nasal Cannula Nasal Cannula Nasal Cannula O2 Flow Rate 4.00 4.00 4.00 4.00 12/31/19 12/31/19 12/31/19 12/31/19 02:15 02:30 02:43 03:00 Temp 36.7 Pulse 64 64 66 Resp 33 28 22 B/P (MAP) 141/69 (93) 144/68 (93) 145/68 (93) Pulse Ox 93 90 O2 Delivery Nasal Cannula Nasal Cannula Nasal Cannula O2 Flow Rate 4.00 4.00 4.00 412/31/19 12/31/19 12/31/19 04:00 04:10 05:00 06:00 Pulse 60 62 64 Resp 17 9 17 B/P (MAP) 144/74 (97) 168/76 (106) 149/55 (86) Pulse Ox 97 99 99 99 O2 Delivery Nasal Cannula Nasal Cannula Nasal Cannula Nasal Cannula O2 Flow Rate 4.00 4.00 4.00 4.00 12/31/19 12/31/19 06:44 08:00 Temp 36.7 Pulse 63 70 Resp 17 B/P (MAP) 127/70 (89) Pulse Ox 97 O2 Delivery Nasal Cannula O2 Flow Rate 4.00 Capillary Refill : Less Than 3 Seconds Constitutional: AAO x 3, well-developed, well-nourished HEENT: PERRL, hearing is well preserved Neck: No carotid bruit; carotid pulses are 2 + bilaterally Respiratory: No accessory muscle use, No respiratory distress; chest expansion is symmetric, chest is bilaterally symmetric, rhonchi (scattered), other (prolonged expiratory phase; dyspneic with conversation) Cardiovascular: regular rate-rhythm; No JVD; S1 and S2 Gastrointestinal: No tender; soft, round, audible bowel sounds Extremities: no lower extremity edema bilateral Neurologic/Psychiatric: grossly intact (moves all extremities) Skin: No rash on exposed areas, No ulcerations on exposed areas Data Review Labs Laboratory Tests 12/30/19 22:30: White Blood Count 7.6, Red Blood Count 3.86L, Hemoglobin 11.7L, Hematocrit 35L, Mean Corpuscular Volume 92, Mean Corpuscular Hemoglobin 30, Mean Corpuscular Hem oglobin Concent 33, Red Cell Distribution Width 13.6, Platelet Count 195, Mean Platelet Volume 9.2, Neutrophils (%) (Auto) 79H, Lymphocytes (%) (Auto) 9L, Monocytes (%) (Auto) 11, Eosinophils (%) (Auto) 2, Basophils (%) (Auto) 0, Neutrophils # (Auto) 6.0, Lymphocytes # (Auto) 0.7L, Monocytes # (Auto) 0.8, Eosinophils # (Auto) 0.1, Basophils # (Auto) 0.0, Prothrombin Time 13.6, INR Comment 1.0, Activated Partial Thromboplast Time 24, Sodium Level 135, Potassium Level 4.3, Chloride Level 97L, Carbon Dioxide Level 27, Anion Gap 11, Blood Urea Nitrogen 27H, Creatinine 1.02, Estimat Glomerular Filtration Rate > 60, BUN/Creatinine Ratio 26, Glucose Level 141H, Calcium Level 9.4, Corrected Calcium 9.4, Magnesium Level 1.9, Total Bilirubin 0.3, Aspartate Amino Transf (AST/SGOT) 11, Alanine Aminotransferase (ALT/SGPT) < 6, Alkaline Phosphatase 52, Myoglobin 50.8, Troponin I < 0.028, B-Type Natriuretic Peptide 15.9, Total Protein 6.3L, Albumin 4.0, Amylase Level 62, Lipase 60 12/31/19 03:06: White Blood Count 6.4, Red Blood Count 3.72L, Hemoglobin 11.3L, Hematocrit 34L, Mean Corpuscular Volume 92, Mean Corpuscular Hemoglobin 30, Mean Corpuscular Hemoglobin Concent 33, Red Cell Distribution Width 13.8, Platelet Count 196, Mean Platelet Volume 9.0, Neutrophils (%) (Auto) 76H, Lymphocytes (%) (Auto) 13, Monocytes (%) (Auto) 10, Eosinophils (%) (Auto) 2, Basophils (%) (Auto) 0, Neutrophils # (Auto) 4.9, Lymphocytes # (Auto) 0.8L, Monocytes # (Auto) 0.6, Eosinophils # (Auto) 0.1, Basophils # (Auto) 0.0, Sodium Level 134L, Potassium Level 4.3, Chloride Level 97L, Carbon Dioxide Level 29, Anion Gap 8, Blood Urea Nitrogen 24H, Creatinine 0.94, Estimat Glomerular Filtration Rate > 60, BUN/Creatinine Ratio 26, Glucose Level 121H, Calcium Level 9.3, Corrected Calcium 9.5, Total Bilirubin 0.4, Aspartate Amino Transf (AST/SGOT) 10, Alanine Aminotransferase (ALT/SGPT) < 6, Alkaline Phosphatase 50, Total Protein 6.0L, Albumin 3.8, Triglycerides Level 114, Cholesterol Level 153, LDL Cholesterol Direct 108, VLDL Cholesterol 23, HDL Cholesterol 42 Radiology NAME: DEVIN HUERTA MED REC#: [id number] PT STATUS: ADM Katya : 1940 PHYSICIAN: CIERA MADDEN DO ADMIT DATE: 12/30/19/ICU Draft Date of Exam:12/30/19 CHEST 1 VIEW, AP/PA ONLY EXAMINATION: AP upright portable chest INDICATION: Difficulty breathing, shortness of breath, and chest pain. COMPARISON: Multiple priors, most recent performed on 12/22/2019. FINDINGS: There is mild hyperexpansion of the lungs and flattening of the hemidiaphragms, likely reflecting chronic changes of COPD. There is mild bibasilar atelectasis/scarring. The lungs are otherwise clear. There is unchanged prominence of the central pulmonary vasculature, without overt edema. Heart size and mediastinal contours are normal and unchanged. No acute osseous abnormality is demonstrated. Chronic fracture deformity of the mid left clavicle is demonstrated. IMPRESSION: Mild bibasilar atelectasis/scarring, otherwise no radiographic evidence of acute chest disease. No significant change from prior. 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 Grade 1 diastolic dysfunction. Mild MR. Mild to mod TR. PASP 30-35mmHg Carotid arterial disease on u/s of 07/28/16: Less than 40% MIGUEL; Approx 60% LICA No evidence of AAA on a screening scan of 07/28/16 Advanced COPD, managed by Dr Chacon Quit smoking in the late . We have advised to continue to refrain from tobacco use DM II H/o hypertension BHARGAV, managed by Dr Chacon Hyperlipidemia, treated with atorvastatin and followed by Dr Barakat Surgery on R ear for skin cancer (details unkown) by Dr Swanson in December 2016, followed by Dr Swanson Discussion and Recomendations Chest pain of undetermined etiology - no evidence of ACS Primary motor vehicle examiner is Dr. Lainez at [facility], pt states is cardiac cath is indicated, he would like to have it done at [place] with his primary motor vehicle examiner Echocardiogram to eval structure and function Management of COPD is with pulmonary/medical services Continue home medication regimen Add PPI Monitor lab Further recs will be based on his hospital course We would like to thank Dr. Barakat for this consult Clinical Quality Measures DVT/VTE Risk/Contraindication: Risk Factor Score Per Nursin RFS Level Per Nursing on Admit: 4+=Very High DARREL ARRIAGA Dec 31, 2019 08:00
[2019-12-31] MEDS ORDERED: PANTOPRAZOLE 40 MG (PROTONIX) VIAL IV SCH (09:00)
[2019-12-31] MEDS ORDERED: ASPIRIN E.C. 81 MG (ECOTRIN) TAB PO SCH (09:00)
[2019-12-31] MEDS ORDERED: PRD20T PO (10:24)
[2019-12-31] MEDS ORDERED: VIT1TABL82 PO (10:24)
[2019-12-31] MEDS ORDERED: ACET-2267 PO (10:24)
[2019-12-31] MEDS ORDERED: OMEP20CA18 PO ×2 (10:24→12:43)
[2019-12-31] MEDS ORDERED: CHOL10007 PO (10:24)
[2019-12-31] MEDS ORDERED: C250T PO (10:24)
--- NOTE | 2019-12-31 11:07 | NUR ---
LOVENOX DOSE CHANGED TO 80 MG SUB-Q Q12H (1 MG/KG, PATIENT WEIGHT 85.2KG) Addendum: 12/31/19 at 1115 by LEEANNE HOYOS [facility] CrCl 66.8, BMI 25.5
--- NOTE | 2019-12-31 11:11 | NUR ---
SPOKE WITH THE PT (AND HIS DAVID) , WENT THRU THE EXT MED HISTORY , CALLED [facility], DR. HIDALGO AND DR. CASEY OFFICE TO COMPLETE THE MED REC LEVEMIR: DR. HIDALGO OFFICE SAID THEY GAVE SAMPLES TO THE PT BUT DOES NOT HAVE AN EXACT DATE (THE NURSE SAID IT WAS "RECENTLY") CARBIDOPA/LEVODOPA ER 50/200MG: THE DIRECTIONS ARE 1 TAB TID HOWEVER THE PT SAYS HE JUST TAKES 1 TAB HS THE FOLLOWING MEDICATIONS ARE LISTED ON THE EXT MED HISTORY BUT THE PT IS NO LONGER TAKING: ZITHROMAX 500MG- PT HAS FINISHED THE THERAPY BACLOFEN 10MG - PT SAID HE DID NOT LIKE THE SIDE EFFECTS SEROQUEL 50MG- PT SAID HE DID NOT LIKE TAKING PT MENTIONED BLOOD PRESSURE MEDICATIONS BUT DID NOT KNOW THE NAMES. I ASKED HOW/WHEN HE WAS TAKING THEM AND HE COULD NOT REMEMBER. WHEN I LOOKED BACK AT THE EXT MED HISTORY AND CALLED [facility] THEY HAD THE FOLLOWING INFO: *LOSARTAN 100MG LAST FILLED 03-13-2019 #90/90DS *AMLODIPINE 5MG LAST FILLED 03-26-2019 #90/90DS *ISOSORBIDE MONO ER 30MG LAST FILLED 06-18-2019 #60/630DS WHEN I SPOKE WITH THE PATIENTS SHE DID NOT THINK HE WAS TAKING ANY BLOOD PRESSURE MEDICATIONS- I LEFT A MESSAGE WITH DR. GENAO NURSE ABOUT THESE (MAINLY WERE THEY DISCONTINUED) AND AM WAITING ON THEM TO CALL ME BACK. I AM NOT ADDING THE MEDICATIONS LISTED ABOVE TO THE MED REC AT THIS TIME- BUT AFTER I SPEAK WITH THE SALES RECORD CLERK OFFICE IF SOMETHING NEEDS ADDED OR UPDATED FOR VARIOUS REASONS I WILL DO SO AT THAT TIME AND UPDATE THE NOTES OTC MEDS: ASPIRIN 81MG TYLENOL PRN VITAMIN B COMPLEX VITAMIN C VITAMIN D
[2019-12-31] MEDS ORDERED: ENOXAPARIN 80 MG/0.8 ML (LOVENOX) SYR SC SCH (12:00)
--- NOTE | 2019-12-31 12:19 | Short Stay Summary ---
History of Present Illness History of Present Illness Reason for visit/HPI This is a 79 year old male with known CAD who presented to the emergency room after an episode of substernal chest pain which resolved with 2 nitro doses. His EKG showed no acute changes and his cardiac enzymes were negative as well as a negative CXR. However, due to his extensive coronary history it was decided to admit him for further observation and workup. Date of Admission Dec 30, 2019 at 23:25 Date of Discharge Time Seen by Provider: 12:00 Attending Physician Lita Barakat DO Admitting Physician Lita Barakat DO Consult Allergies and Home Medications Allergies Coded Allergies: hydrocodone (Verified Allergy, Mild, NAUSEA, 07/25/19) oxycodone (Verified Allergy, Mild, NAUSEA, 07/25/19) Home Medications Acetaminophen 500 Mg Tablet, 1,000 MG PO Q8H PRN for PAIN-MILD (1-4), (Reported) Albuterol Sulfate 1 Puff Puff, 2 PUFF INH Q4H PRN for SHORTNESS OF BREATH, (Reported) Ascorbic Acid 250 Mg Tab, 250 MG PO DAILY, (Reported) Aspirin 81 Mg Tablet.dr, 81 MG PO DAILY, (Reported) Budesonide/Formoterol Fumarate 10.2 Gm Hfa.aer.ad, 2 PUFF IH BID PRN for SHORTNESS OF BREATH, (Reported) Carbidopa/Levodopa 1 Each Tablet.er, 1 TAB PO HS, (Reported) Cholecalciferol (Vitamin D3) 25 Mcg Capsule, 25 MCG PO DAILY, (Reported) Hydrocodone Bit/Acetaminophen 1 Each Tablet, 1 EA PO Q4H PRN for PAIN-MODERATE (5-7), (Reported) Insulin Detemir 100 Unit/1 Ml Insuln.pen, 15 UNITS SC HS, (Reported) Ipratropium/Albuterol Sulfate 3 Ml Ampul.neb, 3 ML NEB Q4H PRN for SHORTNESS OF BREATH, (Reported) Omeprazole 20 Mg Capsule.dr, 20 MG PO DAILY PRN for HEARTBURN, (Reported) Prednisone 20 Mg Tab, 20 MG PO BID, (Reported) FILL 12-25-2019 #14/7 DAY SUPPLY Ropinirole HCl 4 Mg Tablet, 12 MG PO HS, (Reported) TAKES 3 (4MG) TABLETS Vit B Comp/C/FA/Iron/Vit E 1 Each Tablet, 1 EACH PO DAILY, (Reported) Patient Home Medication List Home Medication List Reviewed: Yes Past Dnjypcg-Tmmwmh-Faljiu Hx Patient Social History Marrital Status: Alcohol Use: Occasionally Uses Number of Drinks Today: AA Alcohol Beverage of Choice: Beer Recreational Drug Use: No Smoking Status: Former Smoker Former Smoker, Quit: May 25, 1996 Type Used: Cigars, Cigarettes 2nd Hand Smoke Exposure: Yes Recent Foreign Travel: No Contact w/other who traveled: No Recent Hopitalizations: No Recent Infectious Disease Expo: No Immunizations Up To Date Tetanus Booster (TDap): Unknown Pediatric: Yes Date of Pneumonia Vaccine: Sep 25, 2018 Date of Influenza Vaccine: Sep 25, 2018 Seasonal Allergies Seasonal Allergies: No Surgeries Yes (CATARACTS;R KNEE SCOPE; SKIN CANCERS REMOVED;CARDIAC CATHS-STENTS X 5) Cardiac, Coronary Stent, Eye Surgery, Orthopedic Respiratory Yes (O2 4L NC) COPD, Pneumonia Currently Using CPAP: Yes Currently Using BIPAP: No Cardiovascular Yes (CARDIAC CATHS-STENTS X 5) Coronary Artery Disease, Heart Attack, High Cholesterol, Hypertension Neurological Yes Parkinson's Disease Reproductive System Hx Reproductive Disorders: No Sexually Transmitted Disease: No HIV/AIDS: No Genitourinary No Gastrointestinal Yes Gastroesophageal Reflux Musculoskeletal Yes (CHRONIC RIGHT KNEE PAIN ; RIGHT KNEE SCOPE) Arthritis, Fractures Endocrine History of Endocrine Disorders: Yes Endocrine Disorders: Diabetes, Insulin dep HEENT History of HEENT Disorders: Yes (BILATERAL CATARACT SURGERY; TEETH REMOVED) HEENT Disorders: Cataract Loss of Vision: Bilateral Hearing Impairment: Hard of Hearing Cancer Yes Skin Did You Recieve Any Treatments: Yes Type of Treatment: Surgical Intervention Psychosocial History of Psychiatric Problem: Yes Behavioral Health Disorders: Anxiety Integumentary History of Skin or Integumenta: Yes (ACTINIC KERATOSIS, SKIN CANCER) Skin/Integumentary Disorders: Eczema Blood Transfusions History of Blood Disorders: No Adverse Reaction to a Blood Tr: No Family Medical History Family Hx: Cancer 09 BROTHER Cancer of colon 09 BROTHER Cataract 03 MOTHER Chest pain 03 MOTHER Congenital heart disease 03 FATHER Congestive heart failure 03 FATHER Family history: Cardiovascular disease 03 FATHER 03 MOTHER Family history: Diabetes mellitus 03 FATHER Family history: Gastrointestinal disease 03 MOTHER Family history: Hypertension 03 MOTHER Hearing loss 03 FATHER Heart disease 03 FATHER History of - respiratory disease 03 FATHER Kidney disease 03 FATHER Myocardial infarction 03 FATHER Stroke 03 FATHER No Family History of: Abdominal aortic aneurysm [place]'s disease Alcoholism Aphasia Cystic fibrosis Dementia Dysphagia Family history: Allergy Family history: Alzheimer's disease Family history: Arthritis Family history: Asthma Family history: Breast disease Family history: Coronary thrombosis Family history: Glaucoma Family history: Osteoporosis Family history: Thyroid disorder Headache Hereditary disease History of - anemia History of - disorder History of drug abuse Human immunodeficiency virus (HIV) seropositivity Hypercholesterolemia Infertile Malignant neoplasm of lung Parkinson's disease Prostate cancer Psychotic disorder Seizure disorder Tuberculosis Visual impairment Review of Systems Constitutional: weakness Respiratory: cough, dyspnea on exertion, short of breath Cardiovascular: chest pain Gastrointestinal: No RUQ, No LUQ, No RLQ, No LLQ, No no symptoms reported, No see HPI, No abdominal pain, No constipation, No diarrhea, No dysphagia, No hematemesis, No heartburn, No jaundice, No loss of appetite, No melena, No nausea, No vomiting, No other Genitourinary: No no symptoms reported, No see HPI, No decreased output, No discharge, No dysuria, No frequency, No hematuria, No hesitancy, No incontinence, No nocturia, No pain, No other Musculoskeletal: joint pain (right knee) Skin: No no symptoms reported, No see HPI, No change in color, No change in hair/nails, No dryness, No hx of skin cancer, No lesions, No lumps, No pruritus, No rash, No other Psychiatric/Neurological: Weakness Physical Exam Vital Signs Vital Signs - First Documented 12/30/19 22:20 Temp 36.8 Pulse 66 Resp 21 B/P (MAP) 133/60 (84) Pulse Ox 95 O2 Delivery Nasal Cannula O2 Flow Rate 2.00 Capillary Refill : Less Than 3 Seconds Height, Weight, BMI Height: 6'0.00" Weight: 204lbs. 9.0oz. [id number]; 25.49 BMI Method:Stated General Appearance: No Apparent Distress HEENT: Pharynx Normal Neck: Supple Respiratory: Lungs Clear Cardiovascular: Regular Rate, Rhythm, Systolic Murmur, Gallop/S4 Gastrointestinal: Normal Bowel Sounds, Non Tender, Soft Rectal: Deferred Back: No CVA Tenderness Extremity: Non Tender, No Calf Tenderness, No Pedal Edema Neurologic/Psychiatric: Alert, Oriented x3 Skin: Warm/Dry Comments Laboratory Tests 12/30/19 22:30: White Blood Count 7.6, Red Blood Count 3.86L, Hemoglobin 11.7L, Hematocrit 35L, Mean Corpuscular Volume 92, Mean Corpuscular Hemoglobin 30, Mean Corpuscular Hemoglobin Concent 33, Red Cell Distribution Width 13.6, Platelet Count 195, Mean Platelet Volume 9.2, Neutrophils (%) (Auto) 79H, Lymphocytes (%) (Auto) 9L, Monocytes (%) (Auto) 11, Eosinophils (%) (Auto) 2, Basophils (%) (Auto) 0, Neutrophils # (Auto) 6.0, Lymphocytes # (Auto) 0.7L, Monocytes # (Auto) 0.8, Eosinophils # (Auto) 0.1, Basophils # (Auto) 0.0, Prothrombin Time 13.6, INR Comment 1.0, Activated Partial Thromboplast Time 24, Sodium Level 135, Potassium Level 4.3, Chloride Level 97L, Carbon Dioxide Level 27, Anion Gap 11, Blood Urea Nitrogen 27H, Creatinine 1.02, Estimat Glomerular Filtration Rate > 60, BUN/Creatinine Ratio 26, Glucose Level 141H, Calcium Level 9.4, Corrected Calcium 9.4, Magnesium Level 1.9, Total Bilirubin 0.3, Aspartate Amino Transf (AST/SGOT) 11, Alanine Aminotransferase (ALT/SGPT) < 6, Alkaline Phosphatase 52, Myoglobin 50.8, Troponin I < 0.028, B-Type Natriuretic Peptide 15.9, Total Protein 6.3L, Albumin 4.0, Amylase Level 62, Lipase 60 12/31/19 03:06: White Blood Count 6.4, Red Blood Count 3.72L, Hemoglobin 11.3L, Hematocrit 34L, Mean Corpuscular Volume 92, Mean Corpuscular Hemoglobin 30, Mean Corpuscular Hemoglobin Concent 33, Red Cell Distribution Width 13.8, Platelet Count 196, Mean Platelet Volume 9.0, Neutrophils (%) (Auto) 76H, Lymphocytes (%) (Auto) 13, Monocytes (%) (Auto) 10, Eosinophils (%) (Auto) 2, Basophils (%) (Auto) 0, Neutrophils # (Auto) 4.9, Lymphocytes # (Auto) 0.8L, Monocytes # (Auto) 0.6, Eosinophils # (Auto) 0.1, Basophils # (Auto) 0.0, Sodium Level 134L, Potassium Level 4.3, Chloride Level 97L, Carbon Dioxide Level 29, Anion Gap 8, Blood Urea Nitrogen 24H, Creatinine 0.94, Estimat Glomerular Filtration Rate > 60, BUN/Creatinine Ratio 26, Glucose Level 121H, Calcium Level 9.3, Corrected Calcium 9.5, Total Bilirubin 0.4, Aspartate Amino Transf (AST/SGOT) 10, Alanine Aminotransferase (ALT/SGPT) < 6, Alkaline Phosphatase 50, Troponin I < 0.028, Total Protein 6.0L, Albumin 3.8, Mean Blood Glucose [Pending], Hemoglobin A1c [Pending], Triglycerides Level 114, Cholesterol Level 153, LDL Cholesterol Direct 108, VLDL Cholesterol 23, HDL Cholesterol 42 12/31/19 11:39: Glucometer 106 Clinical Quality Measures DVT/VTE Risk/Contraindication: Risk Factor Score Per Nursin RFS Level Per Nursing on Admit: 4+=Very High Short Stay Diagnosis Discharge Diagnosis-Short Stay Final Discharge Diagnosis: 1. Chest Pain with extensive CAD history but no evidence of acute coronary syndrome--likely angina 2. COPD with recent exacerbation--oxygen dependant 3. Hypertension 4. Diabetes mellitus--insulin requiring--uncontrolled and noncompliant 5. GERD--stable Conclusion Labs Laboratory Tests 12/30/19 22:30: White Blood Count 7.6, Red Blood Count 3.86L, Hemoglobin 11.7L, Hematocrit 35L, Mean Corpuscular Volume 92, Mean Corpuscular Hemoglobin 30, Mean Corpuscular Hemoglobin Concent 33, Red Cell Distribution Width 13.6, Platelet Count 195, Mean Platelet Volume 9.2, Neutrophils (%) (Auto) 79H, Lymphocytes (%) (Auto) 9L, Monocytes (%) (Auto) 11, Eosinophils (%) (Auto) 2, Basophils (%) (Auto) 0, Neutrophils # (Auto) 6.0, Lymphocytes # (Auto) 0.7L, Monocytes # (Auto) 0.8, Eosinophils # (Auto) 0.1, Basophils # (Auto) 0.0, Prothrombin Time 13.6, INR Comment 1.0, Activated Partial Thromboplast Time 24, Sodium Level 135, Potassium Level 4.3, Chloride Level 97L, Carbon Dioxide Level 27, Anion Gap 11, Blood Urea Nitrogen 27H, Creatinine 1.02, Estimat Glomerular Filtration Rate > 60, BUN/Creatinine Ratio 26, Glucose Level 141H, Calcium Level 9.4, Corrected Calcium 9.4, Magnesium Level 1.9, Total Bilirubin 0.3, Aspartate Amino Transf (AST/SGOT) 11, Alanine Aminotransferase (ALT/SGPT) < 6, Alkaline Phosphatase 52, Myoglobin 50.8, Troponin I < 0.028, B-Type Natriuretic Peptide 15.9, Total Protein 6.3L, Albumin 4.0, Amylase Level 62, Lipase 60 12/31/19 03:06: White Blood Count 6.4, Red Blood Count 3.72L, Hemoglobin 11.3L, Hematocrit 34L, Mean Corpuscular Volume 92, Mean Corpuscular Hemoglobin 30, Mean Corpuscular Hemoglobin Concent 33, Red Cell Distribution Width 13.8, Platelet Count 196, Mean Platelet Volume 9.0, Neutrophils (%) (Auto) 76H, Lymphocytes (%) (Auto) 13, Monocytes (%) (Auto) 10, Eosinophils (%) (Auto) 2, Basophils (%) (Auto) 0, Neutrophils # (Auto) 4.9, Lymphocytes # (Auto) 0.8L, Monocytes # (Auto) 0.6, Eosinophils # (Auto) 0.1, Basophils # (Auto) 0.0, Sodium Level 134L, Potassium Level 4.3, Chloride Level 97L, Carbon Dioxide Level 29, Anion Gap 8, Blood Urea Nitrogen 24H, Creatinine 0.94, Estimat Glomerular Filtration Rate > 60, BUN/Creatinine Ratio 26, Glucose Level 121H, Calcium Level 9.3, Corrected Calcium 9.5, Total Bilirubin 0.4, Aspartate Amino Transf (AST/SGOT) 10, Alanine Aminotransferase (ALT/SGPT) < 6, Alkaline Phosphatase 50, Troponin I < 0.028, Total Protein 6.0L, Albumin 3.8, Triglycerides Level 114, Cholesterol Level 153, LDL Cholesterol Direct 108, VLDL Cholesterol 23, HDL Cholesterol 42 12/31/19 11:39: Glucometer 106 Conclusion/Plan Patient was admitted to the cardiac stepdown in the ICU. He had repeat cardiac enzymes which were normal. He had no further chest pain after his hospital admission. Cardiology was consulted and updated an echocardiogram which showed no change. It was felt that he had no evidence of acute coronary syndrome so it was felt he could be discharged home. He is currently pain free with no shortness of air and no complaints. Will DC home on current meds and have him follow up with his docketing specialist in the next 4-8 weeks. LITA BARAKAT DO Dec 31, 2019 12:19
[2019-12-31] MEDS ORDERED: LOSA100T57 PO (12:43)
--- NOTE | 2019-12-31 13:17 | Consultation-Cardiology ---
HPI-Cardiology Cardiology Consultation: Date of Consultation 12/31/19 Time Seen by a Provider: 12:05 Date of Admission Attending Physician Yvette Barakat DO Admitting Physician Yvette Barakat DO Consulting Physician TARI BRYAN MD, MA, FACP, FACC, FSCAI, CCDS HPI: Chief Complaint: CC: Chest pain HPI Mr. Huerta is a 79 year old male admitted to ICU 6 from the ED with c/o CP. His primary senior business architect is Dr. Lainez at [facility]. He reports he saw him last about 6 months ago. He denies any recent cardiac testing or cardiac cath or coronary stent placement in the last year. He states he was getting ready to go to bed last night when he had an episode of mid-sternal chest pain, which did not radiate. He reports it as a sharp, pressure. He reports he felt some nausea with the discomfort. He reports he had some increase in SOB at the time. He reports he took 2 sublingual nitro at home which did resolve his chest pain and he has had no recurrence. He denies any LE swelling. He denies any palpitations, syncope or near syncope. He states he is feeling better this morning and feels his SOB is better than yesterday. He denies any fever, chills, n/v/d. Review of Systems-Cardiology Review of Systems Constitutional: No chills, No fever; malaise Eyes: No vision change Ears/Nose/Throat: No epistaxis, No nasal drainage, No recent hearing loss Respiratory: As described under HPI Cardiovascular: As described under HPI Gastrointestinal: No constipation, No diarrhea; nausea; No vomiting Genitourinary: No dysuria, No hematuria Musculoskeletal: no symptoms reported Skin: No rash on exposed areas, No ulcerations on exposed areas Psychiatric/Neurological: No anxiety, No depression, No seizure, No focal weakness, No syncope Hematologic: No bleeding abnormalities [id number] Hx Patient Social History Marrital Status: Alcohol Use: Occasionally Uses Recreational Drug Use: No Smoking Status: Former Smoker Former smoker/When Quit: Sep 24, 1994 Type Used: Cigars, Cigarettes 2nd Hand Smoke Exposure: Yes Recent Foreign Travel: No Recent Infectious Disease Expo: No Hospitalization with Isolation: Denies Immunizations Up To Date Tetanus Booster (TDap): Unknown Date of Pneumonia Vaccine: Sep 25, 2018 Date of Influenza Vaccine: Sep 25, 2018 Past Medical History PMH As described under Assessment. Family Medical History Family Medical History: He reports his father had CAD, CVA and CHF. His moher had CAD and HTN. Family History: Cancer 09 BROTHER Cancer of colon 09 BROTHER Cataract 03 MOTHER Chest pain 03 MOTHER Congenital heart disease 03 FATHER Congestive heart failure 03 FATHER Family history: Cardiovascular disease 03 FATHER 03 MOTHER Family history: Diabetes mellitus 03 FATHER Family history: Gastrointestinal disease 03 MOTHER Family history: Hypertension 03 MOTHER Hearing loss 03 FATHER Heart disease 03 FATHER History of - respiratory disease 03 FATHER Kidney disease 03 FATHER Myocardial infarction 03 FATHER Stroke 03 FATHER No Family History of: Abdominal aortic aneurysm [place]'s disease Alcoholism Aphasia Cystic fibrosis Dementia Dysphagia Family history: Allergy Family history: Alzheimer's disease Family history: Arthritis Family history: Asthma Family history: Breast disease Family history: Coronary thrombosis Family history: Glaucoma Family history: Osteoporosis Family history: Thyroid disorder Headache Hereditary disease History of - anemia History of - disorder History of drug abuse Human immunodeficiency virus (HIV) seropositivity Hypercholesterolemia Infertile Malignant neoplasm of lung Parkinson's disease Prostate cancer Psychotic disorder Seizure disorder Tuberculosis Visual impairment Allergies and Home Medications Allergies Coded Allergies: hydrocodone (Verified Allergy, Mild, NAUSEA, 07/25/19) oxycodone (Verified Allergy, Mild, NAUSEA, 07/25/19) Home Medications Acetaminophen 500 Mg Tablet, 1,000 MG PO Q8H PRN for PAIN-MILD (1-4), (Reported) Albuterol Sulfate 1 Puff Puff, 2 PUFF INH Q4H PRN for SHORTNESS OF BREATH, (Reported) Ascorbic Acid 250 Mg Tab, 250 MG PO DAILY, (Reported) Aspirin 81 Mg Tablet.dr, 81 MG PO DAILY, (Reported) Budesonide/Formoterol Fumarate 10.2 Gm Hfa.aer.ad, 2 PUFF IH BID PRN for SHORTNESS OF BREATH, (Reported) Carbidopa/Levodopa 1 Each Tablet.er, 1 TAB PO HS, (Reported) Cholecalciferol (Vitamin D3) 25 Mcg Capsule, 25 MCG PO DAILY, (Reported) Hydrocodone Bit/Acetaminophen 1 Each Tablet, 1 EA PO Q4H PRN for PAIN-MODERATE (5-7), (Reported) Insulin Detemir 100 Unit/1 Ml Insuln.pen, 15 UNITS SC HS, (Reported) Ipratropium/Albuterol Sulfate 3 Ml Ampul.neb, 3 ML NEB Q4H PRN for SHORTNESS OF BREATH, (Reported) Losartan Potassium 100 Mg Tablet, 100 MG PO DAILY Prescribed by: YVETTE BARAKAT on 12/31/19 1243 Omeprazole 20 Mg Capsule.dr, 20 MG PO DAILY Prescribed by: YVETTE BARAKAT on 12/31/19 1243 Prednisone 20 Mg Tab, 20 MG PO BID, (Reported) FILL 12-25-2019 #14/7 DAY SUPPLY Ropinirole HCl 4 Mg Tablet, 12 MG PO HS, (Reported) TAKES 3 (4MG) TABLETS Vit B Comp/C/FA/Iron/Vit E 1 Each Tablet, 1 EACH PO DAILY, (Reported) Patient Home Medication List Home Medication List Reviewed: Yes Physical Exam-Cardiology Physical Exam Vital Signs/I&O 12/31/19 12/31/19 12/31/19 12/31/19 01:15 01:30 01:45 02:00 Pulse 63 60 63 60 Resp 23 14 28 14 B/P (MAP) 133/68 (89) 134/66 (88) 120/51 (74) 140/67 (91) Pulse Ox 98 100 99 93 O2 Delivery Nasal Cannula Nasal Cannula Nasal Cannula Nasal Cannula O2 Flow Rate 4.00 4.00 4.00 4.00 12/31/19 12/31/19 12/31/19 12/31/19 02:15 02:30 02:43 03:00 Temp 36.7 Pulse 64 64 66 Resp 33 28 22 B/P (MAP) 141/69 (93) 144/68 (93) 145/68 (93) Pulse Ox 93 90 O2 Delivery Nasal Cannula Nasal Cannula Nasal Cannula O2 Flow Rate 4.00 4.00 4.00 12/31/19 12/31/19 12/31/19 12/31/19 04:00 04:10 05:00 06:00 Pulse 60 62 64 Resp 17 9 17 B/P (MAP) 144/74 (97) 168/76 (106) 149/55 (86) Pulse Ox 97 99 99 99 O2 Delivery Nasal Cannula Nasal Cannula Nasal Cannula Nasal Cannula O2 Flow Rate 4.00 4.00 4.00 4.00 12/31/19 12/31/19 12/31/19 12/31/19 06:44 08:00 08:00 09:00 Temp 36.7 Pulse 63 70 Resp 17 B/P (MAP) 127/70 (89) Pulse Ox 97 97 97 O2 Delivery Nasal Cannula Nasal Cannula Nasal Cannula O2 Flow Rate 4.00 4.00 4.00 12/31/19 12:00 Pulse Ox 97 O2 Delivery Nasal Cannula O2 Flow Rate 4.00 Capillary Refill : Less Than 3 Seconds Constitutional: AAO x 3, well-developed, well-nourished HEENT: PERRL, hearing is well preserved Neck: No carotid bruit; carotid pulses are 2 + bilaterally Respiratory: No accessory muscle use, No respiratory distress; chest expansion is symmetric, chest is bilaterally symmetric, rhonchi (scattered), other (prolo nged expiratory phase; dyspneic with conversation) Cardiovascular: regular rate-rhythm; No JVD; S1 and S2 Gastrointestinal: No tender; soft, round, audible bowel sounds Extremities: no lower extremity edema bilateral Neurologic/Psychiatric: grossly intact (moves all extremities) Skin: No rash on exposed areas, No ulcerations on exposed areas Data Review Labs Laboratory Tests 12/30/19 22:30: White Blood Count 7.6, Red Blood Count 3.86L, Hemoglobin 11.7L, Hematocrit 35L, Mean Corpuscular Volume 92, Mean Corpuscular Hemoglobin 30, Mean Corpuscular Hemoglobin Concent 33, Red Cell Distribution Width 13.6, Platelet Count 195, Mean Platelet Volume 9.2, Neutrophils (%) (Auto) 79H, Lymphocytes (%) (Auto) 9L, Monocytes (%) (Auto) 11, Eosinophils (%) (Auto) 2, Basophils (%) (Auto) 0, Neutrophils # (Auto) 6.0, Lymphocytes # (Auto) 0.7L, Monocytes # (Auto) 0.8, Eosinophils # (Auto) 0.1, Basophils # (Auto) 0.0, Prothrombin Time 13.6, INR Comment 1.0, Activated Partial Thromboplast Time 24, Sodium Level 135, Potassium Level 4.3, Chloride Level 97L, Carbon Dioxide Level 27, Anion Gap 11, Blood Urea Nitrogen 27H, Creatinine 1.02, Estimat Glomerular Filtration Rate > 60, BUN/Creatinine Ratio 26, Glucose Level 141H, Calcium Level 9.4, Corrected Calcium 9.4, Magnesium Level 1.9, Total Bilirubin 0.3, Aspartate Amino Transf (AST/SGOT) 11, Alanine Aminotransferase (ALT/SGPT) < 6, Alkaline Phosphatase 52, Myoglobin 50.8, Troponin I < 0.028, B-Type Natriuretic Peptide 15.9, Total Protein 6.3L, Albumin 4.0, Amylase Level 62, Lipase 60 12/31/19 03:06: White Blood Count 6.4, Red Blood Count 3.72L, Hemoglobin 11.3L, Hematocrit 34L, Mean Corpuscular Volume 92, Mean Corpuscular Hemoglobin 30, Mean Corpuscular Hemoglobin Concent 33, Red Cell Distribution Width 13.8, Platelet Count 196, Mean Platelet Volume 9.0, Neutrophils (%) (Auto) 76H, Lymphocytes (%) (Auto) 13, Monocytes (%) (Auto) 10, Eosinophils (%) (Auto) 2, Basophils (%) (Auto) 0, Neutrophils # (Auto) 4.9, Lymphocytes # (Auto) 0.8L, Monocytes # (Auto) 0.6, Eosinophils # (Auto) 0.1, Basophils # (Auto) 0.0, Sodium Level 134L, Potassium Level 4.3, Chloride Level 97L, Carbon Dioxide Level 29, Anion Gap 8, Blood Urea Nitrogen 24H, Creatinine 0.94, Estimat Glomerular Filtration Rate > 60, BUN/Creatinine Ratio 26, Glucose Level 121H, Calcium Level 9.3, Corrected Calcium 9.5, Total Bilirubin 0.4, Aspartate Amino Transf (AST/SGOT) 10, Alanine Aminotransferase (ALT/SGPT) < 6, Alkaline Phosphatase 50, Troponin I < 0.028, Total Protein 6.0L, Albumin 3.8, Triglycerides Level 114, Cholesterol Level 153, LDL Cholesterol Direct 108, VLDL Cholesterol 23, HDL Cholesterol 42 12/31/19 11:39: Glucometer 106 A/P-Cardiology Assessment/Admission Diagnosis Chest pain of undetermined etiology - no evidence of ACS (no troponin elevation, no ECG indication of ischemia or infarction, no recurrence of symptoms) Chronic anemia that is being managed by his pcp, Dr Barakat Multivessel CAD on cath of 06/02/16; considered high-risk for CABG and underwent multivessel PCI at [facility] by Dr Lainez: Promus BAKARI to mid LAD, PTCA to distal LAD, Resolute BAKARI to distal LCX, Promus x 2 BAKARI stenting to prox to distal RCA, failed PTCA to OM1 Echo of 12/31/19: LVEF 50-55%%, grade 1 diastolic dysfunction, mild to mod MR, some calcification of the chordae, normal estimated RV systolic pressure Carotid arterial disease on u/s of 07/28/16: Less than 40% MIGUEL; Approx 60% LICA No evidence of AAA on a screening scan of 07/28/16 Advanced COPD, managed by Dr Chacon Quit smoking in the late . We have advised to continue to refrain from tobacco use DM II H/o hypertension BHARGAV, managed by Dr Chacon Hyperlipidemia, treated with atorvastatin and followed by Dr Barakat Surgery on R ear for skin cancer (details unkown) by Dr Swanson in December [address], [address] Swanson Discussion and Recomendations We reviewed and discussed his CV issues and instructed him in risk factor mod Advised to f/u with his primary senior business architect (Dr Lainez) VALERIA Advised to return to ER in case of any recurrence of symptoms or new symptoms Management of COPD is with Pulmonary and Medical services Continue home medication regimen Add PPI Monitor lab We would like to thank Dr. Barakat for this consult Clinical Quality Measures DVT/VTE Risk/Contraindication: Risk Factor Score Per Nursin RFS Level Per Nursing on Admit: 4+=Very High TARI BRYAN MD FACP FAC CCD Dec 31, 2019 13:17
--- NOTE | 2019-12-31 14:16 | NUR ---
CM/SS: Visited with pt as to plan for discharge. Plan: Pt will return home when deemed appropriate Summary: Pt reports having chest pain and came to Emergency Room. Pt reports feeling better today and wanting to eat. Pt apparently has not had anything to eat or drink in case he needed to have a procedure. He is asked about compliance with taking meds and breathing treatments, he reports yes, but tomi shakes his head as to indicate maybe not so much. He is encouraged to be compliant and to do what the physicians request him to do. Pt verbalizes understanding. Pt begins talking about his family and his gnosticist. This pt is known to this worker having attended the same gnosticist. Pt verbalizes he is ready to return home.
--- NOTE | 2019-12-31 14:59 | NUR ---
Received dietary consult for MST score. Note pt is discharged at this time. Ashley De La O, MS, RD, LD
[2019-12-31] MEDS ORDERED: ENOXAPARIN 100 MG/1 ML (LOVENOX) SYR SC SCH (23:00)
== END 2019-12-31 13:08 | disposition home or self-care (01) ==
LOC: EDUNIT# 21:58 → ER 22:00 → ICU 23:25
PROVIDERS: ADMIT Family Medicine; ATTEND Family Medicine
DX: I25.10 Atherosclerotic heart disease of native coronary artery without angina pectoris (principal); J44.1 Chronic obstructive pulmonary disease with (acute) exacerbation; I10 Essential (primary) hypertension; E11.9 Type 2 diabetes mellitus without complications; K21.9 Gastro-esophageal reflux disease without esophagitis; E78.00 Pure hypercholesterolemia, unspecified; G20 Parkinson's disease; G89.29 Other chronic pain; M25.261 Flail joint, right knee; Z79.4 Long term (current) use of insulin; Z88.6 Allergy status to analgesic agent; Z79.82 Long term (current) use of aspirin; Z79.899 Other long term (current) drug therapy; Z87.891 Personal history of nicotine dependence; Z85.828 Personal history of other malignant neoplasm of skin; Z95.5 Presence of coronary angioplasty implant and graft; Z99.81 Dependence on supplemental oxygen; I34.0 Nonrheumatic mitral (valve) insufficiency
CPT/HCPCS: 36415; 71045; 80053; 80061; 82150; 82962; 83036; 83690; 83735; 83874; 83880; 84484; 85025; 85610; 85730; 93041; 93306; 96372; 96374; 96375

== ENCOUNTER 2020-03-08 05:47 | Outpatient (RCR) | payer MEDICARE ==
[~2020-03-08] VITALS: Ht 182.9 cm; Wt 82.3 kg
[~2020-03-08 05:47] MED LIST changes: +CHOL10007 PO; +METF-865 PO; -METF500T19 PO; +VIT1TABL82 PO
== END 2020-03-08 15:13 | disposition home or self-care (01) ==
LOC: PREOP 05:47
PROVIDERS: ATTEND Surgery
DX: Z01.818 Encounter for other preprocedural examination (principal); Z11.59 Encounter for screening for other viral diseases
CPT/HCPCS: 87635

== ENCOUNTER 2020-03-11 06:01 | Day surgery (SDC) | payer MEDICARE ==
[~2020-03-11] VITALS: Ht 182.9 cm; Wt 82.3 kg
[2020-03-11 06:20] VITALS: BP 157/74
[2020-03-11] MEDS ORDERED: LACTATED RINGERS 1,000 ML IV PRN (06:31)
[2020-03-11] MEDS ORDERED: ceFAZolin 2 GM IV Premixed 50 ML IV ONE (06:45)
[2020-03-11] MEDS ORDERED: CATHETER FLUSH 10 ML SYR IV PRN (06:45)
[2020-03-11] MEDS ORDERED: PROPOFOL INJECTION 50 ML IV ONE (06:46)
[2020-03-11] MEDS ORDERED: ONDANSETRON 4 MG/2 ML (SDV) Z0FRAN ONE (06:47)
[2020-03-11] MEDS ORDERED: KETAMINE/NaCl 50 MG/5 ML SYRINGE (ED ONLY) ONE (06:56)
[2020-03-11] MEDS ORDERED: BUP/EPI 0.5% 1:200,000 (SENSORCAINE) 30 ML VIAL ONE (07:13)
--- NOTE | 2020-03-11 07:40 | Progress Note-Pre Operative ---
Pre-Operative Progress Note H&P Reviewed The H&P was reviewed, patient examined and no changes noted. Date Seen by Provider: Mar 11, 2020 Time Seen by Provider: 07:30 Date H&P Reviewed: Mar 11, 2020 Time H&P Reviewed: 07:30 Pre-Operative Diagnosis: skin lesion upper extremities STEVAN PATTON DO Mar 11, 2020 07:40
[2020-03-11 08:29] VITALS: BP 176/87
--- NOTE | 2020-03-11 08:31 | Discharge Inst-Simple/Standard ---
Discharge Inst-Standard Patient Instructions/Follow Up Plan of Care/Instructions/FU: See nurse tomorrow in Dr. Machado's office for packing Machado 2 weeks. Activity as Tolerated: Yes (Keep clean and dry.) Discharge Diet: Regular Diet Other Inst to Patient Follow up Appt: Make appointment for 2 week. Irrigate and pack wound daily. Instructions: No lifting greater than 10 pounds. No strenuous activity. May shower in 24 hours, no tub bath or soaking. Use incentive spirometer at home as directed. No Smoking Skin/Wound Care: Irrigate and pack wound daily. Keep area clean and dry. Symptoms to Report: Appetite Changes, Extremity Discoloration, Numbness/Tingling, Swelling Increased, Bleeding Excessive, Eyesight Changes, Pain Increased, Urine Color Change, Constipation(Persistent), Fever over 101 degree F, Pain/Pressure in chest, Urinating Difficulty, Cough Up/Vomit Blood, Heart Beat Irreg/Pounding, Pain/Pressure in jaw, Vaginal Bleeding Increase, Cramps in feet or legs, Lightheadedness, Pain/Pressure in shoulder, Diarrhea(Persistent), Memory Changes Suddenly, Questions/Concerns, Weight gain consecutive days, Dizziness/Fainting, Nausea/Vomiting, Shortness of Breath, Weight gain over 2 pounds If questions or concerns contact your physician Or seek help at emergency department. STEVAN MACHADO DO Mar 11, 2020 08:31
--- NOTE | 2020-03-11 08:33 | Progress Note-Post Operative ---
Post-Operative Progess Note Surgeon (s)/Meter Repair Shop Supervisor (s) Surgeon STEVAN PATTON DO Meter Repair Shop Supervisor: na Pre-Operative Diagnosis skin lesion upper extremities Post-Operative Diagnosis same Procedure & Operative Findings Date of Procedure 03/11/20 Procedure Performed/Findings excision skin lesion left x 1 and right x 2 upper ext Anesthesia Type mac c local Estimated Blood Loss Estimated blood loss (mL): min Specimens/Packing Specimens Removed skin lesions STEVAN PATTON DO Mar 11, 2020 08:33
[2020-03-11 08:40] VITALS: BP 171/89
[2020-03-11] MEDS ORDERED: ONDANSETRON 4 MG/2 ML (SDV) Z0FRAN IVP PRN (08:45)
[2020-03-11] MEDS ORDERED: fentaNYL INJECTION 100 MCG/2 ML AMP IVP ONE (08:45)
[2020-03-11 08:50] VITALS: BP 167/103
[2020-03-11 08:55] VITALS: BP_SYST 157; BP_SYST 175; BP_DIAS 74; BP_DIAS 96
[2020-03-11 09:25] VITALS: BP 171/78
--- NOTE | 2020-03-11 14:45 | Anesthesia-General Post-Op ---
MAC Patient Condition Mental Status/LOC: Same as Preop Cardiovascular: Satisfactory Nausea/Vomiting: Absent Respiratory: Satisfactory Pain: Controlled Complications: Absent Post Op Complications Complications None Follow Up Care/Instructions Patient Instructions None needed. Anesthesiology Discharge Order Discharge Order Patient is doing well, no complaints, stable vital signs, no apparent adverse anesthesia problems. No complications reported per nursing. [facility] COMMUNICATIONS SPECIALIST Mar 11, 2020 14:45
--- NOTE | 2020-03-11 15:36 | OPERATIVE REPORT ---
DATE OF SERVICE: 03/11/2020 PREOPERATIVE DIAGNOSIS: Skin lesions, left upper and right upper extremity. PROCEDURE: Excision of skin lesions, removal of skin and subcutaneous tissue, left arm 4 x 2 cm, right anterior arm 1.4 x 2.6 cm and right posterior arm 4.3 x 5 cm. SURGEON: Stevan Machado DO ANESTHESIA: MAC with local. ESTIMATED BLOOD LOSS: Minimal. COMPLICATIONS: None. INDICATIONS: The patient is a 79-year-old male with skin lesions that have continued to increase in size and are consistent with skin cancer. He understands risks and benefits of procedures and wished to proceed with procedure. Consent was signed in the chart. DESCRIPTION OF PROCEDURE: The patient was taken to the operating suite, prepped and draped in sterile fashion. Timeout was performed. Left arm lesion had local anesthetic infiltrated around it. A 15 blade scalpel was used to make an elliptical incision measuring 4 x 2 cm, removing skin and subcutaneous tissue to completely remove the lesion. Hemostasis was achieved. Specimen was labeled short suture superior and long suture lateral. The skin was then closed using 2-0 Prolene in a simple running fashion. Attention to the right arm, the anterior lesion was then infiltrated with local anesthetic. 15 blade scalpel was used to make an elliptical incision measuring 1.4 x 2.6 cm around it. The skin and subcutaneous tissue was removed. Hemostasis was achieved. Skin was then closed using 2-0 Prolene in a running subcuticular fashion. The right posterior lesion was then identified. Local anesthetic was infiltrated around it. A 15 blade scalpel was used to remove the skin and subcutaneous tissue. Overall, measurement 4.3 x 5 cm. Hemostasis was achieved. This was unable to be closed due to the size. Therefore, the area was packed with Kerlix wet to dry. The areas were then washed and dried and sterile bandages were applied. The patient tolerated procedure well without any complications. He was taken to recovery room in stable condition. 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
== END 2020-03-11 09:25 | disposition home or self-care (01) ==
LOC: SDC 06:01
PROVIDERS: ATTEND Surgery
DX: C44.629 Squamous cell carcinoma of skin of left upper limb, including shoulder (principal); C44.622 Squamous cell carcinoma of skin of right upper limb, including shoulder; L57.0 Actinic keratosis; G47.33 Obstructive sleep apnea (adult) (pediatric); I25.118 Atherosclerotic heart disease of native coronary artery with other forms of angina pectoris; D64.9 Anemia, unspecified; I65.23 Occlusion and stenosis of bilateral carotid arteries; J43.9 Emphysema, unspecified; I11.9 Hypertensive heart disease without heart failure; I25.2 Old myocardial infarction; E11.9 Type 2 diabetes mellitus without complications; K21.9 Gastro-esophageal reflux disease without esophagitis; M06.9 Rheumatoid arthritis, unspecified; F41.9 Anxiety disorder, unspecified; E66.9 Obesity, unspecified; Z68.24 Body mass index [BMI] 24.0-24.9, adult; Z79.51 Long term (current) use of inhaled steroids; Z79.899 Other long term (current) drug therapy; Z79.82 Long term (current) use of aspirin; Z79.84 Long term (current) use of oral hypoglycemic drugs; Z88.5 Allergy status to narcotic agent; Z95.5 Presence of coronary angioplasty implant and graft; Z11.2 Encounter for screening for other bacterial diseases
CPT/HCPCS: 82962; 87081; 88305

== ENCOUNTER 2020-03-28 15:28 | Observation (INO) | payer MEDICARE ==
[~2020-03-28] VITALS: Ht 182.9 cm; Wt 87.0 kg
--- NOTE | 2020-03-28 15:37 | NUR ---
RT IN ROOM SETTING UP BIPAP
--- OUTSIDE RECORDS SUMMARY | 2020-03-28 15:37 | XMS REPORT | CCD ---
Author Author Leandro Barakat D.O. 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 Name Role Phone Lita Barakat D.O., PP Unavailable CCM Unavailable Summary Purpose Interface Exchange Insurance Providers Payer name Policy type / Coverage type Covered constitution party ID Effective Begin Date Effective End Date [employer] MEDICARE Medicare Part B [id number] 2019 Unknown Family history Brother Diagnosis Age At Onset Cancer Unknown Father Diagnosis Age At Onset Heart disease Unknown Mother Diagnosis Age At Onset Heart disease Unknown Social History Social History Element Codes Description Effective Dates Tobacco history SNOMED CT: 6285658 Former smoker quit 15 years ago 08/07/2011 [...] Effective Dates Condition Status Chronic obstructive pulmonary disease, unspecified ICD -9: 496 ICD-10: J44.9 03/10/2014 Active Chronic obstructive pulmonary disease with (acute) exa cerbation ICD-9: 491.21 ICD-10: J44.1 07/02/2017 Active Insomnia ICD-9: 780.52 ICD-10: G47.00 09/03/2016 Active Noncompliance with diabetes treatment ICD-9: V15.81 ICD-10: Z91.19 12/25/2018 Active Pain in right knee ICD-9: 719.46 ICD-10: M25.561 12/17/2017 Active Basal cell carcinoma, face ICD-9: 173.31 ICD-10: C44.310 11/12/2019 Active Chronic respiratory failure with hypercapnia ICD-9: [...] R07.9 06/22/2016 Active Atherosclerotic heart disease of [place] coronary arter y without angina pectoris ICD-9: [...] hydrocodone 10 mg-acetaminophen 325 mg tablet RxNorm: 753277 1 Tablet(s) Oral four times a day as needed for pain 03/23/2020 03/23/2020 Inactive pantoprazole 40 mg tablet,delayed release RxNorm: 035515 1 Tablet(s) Oral QD FOR STOMACH 03/22/2020 06/19/2020 Active Generic For:PROT ZENIA 40MG TAB EC 01/03/2019 1:23:44 PM losartan 100 mg tablet RxNorm: 299368 1TD 03/18/2020 05/16/2020 Active albuterol sulfate 2.5 mg/3 mL (0.083 %) solution for n ebulization RxNorm: 409984 USE 1 VIAL IN NEBULIZER EVERY FOUR HOURS NEEDED FOR WHEEZING OR SOB 03/09/2020 04/22/2020 Active Levemir FlexTouch U-100 Insulin 100 unit/mL (3 mL) sub cutaneous pen RxNorm: 152097 INJECT 20 UNITS SQ QD 02/26/2020 03/21/2020 Inactive losartan 100 mg tablet RxNorm: 185730 1TD 02/03/2020 03/17/2020 Inactive Sinemet CR 50 mg-200 mg tablet,extended release RxNorm: 8343 41 1 Tablet(s) Oral three times a day 02/02/2020 07/31/2020 Active Generic For:*S INEMET CR 50/200 TABLET SA 07/08/2018 3:09:11 PM hydrocodone 10 mg-acetaminophen 325 mg tablet RxNorm: 912890 1 Tablet(s) Oral Q4H as needed for pain 01/29/2020 03/22/2020 Inactive ipratropium 0.5 mg-albuterol 3 mg (2.5 mg base)/3 mL n ebulization soln RxNorm: 7309990 USE 1 VIAL IN NEBULIZER Q4H (THIS REPLACES ALBUTEROL S OLUTION) 01/08/2020 02/06/2020 Inactive prednisone 20 mg tablet RxNorm: 586839 1 Tablet(s) Oral two remy es a day 12/25/2019 01/01/2020 Inactive Levemir FlexTouch U-100 Insulin 100 unit/mL (3 mL) sub cutaneous pen RxNorm: 937921 10 Unit(s) Subcutaneous every night at bedtime 12/22/2019 N o Stop Date Active baclofen 10 mg tablet RxNorm: 492047 1 Tablet(s) Oral QPM for p ain/spasm 12/22/2019 01/21/2020 Inactive ipratropium 0.5 mg-albuterol 3 mg (2.5 mg base)/3 mL n ebulization soln RxNorm: 7742807 USE 1 VIAL IN NEBULIZER Q4H (THIS REPLACES ALBUTEROL S OLUTION) 11/27/2019 12/16/2019 Inactive hydrocodone 10 mg-acetaminophen 325 mg tablet RxNorm: 436155 1 Tablet(s) Oral Q4H as needed for pain 11/13/2019 01/28/2020 Inactive Seroquel 50 mg tablet RxNorm: 110057 1 Tablet(s) Oral QPM as ne eded for sleep 10/07/2019 12/21/2019 Inactive ropinirole 4 mg tablet RxNorm: 654923 3 TABLET(S) BY MO UTH DAILY AT BEDTIME FOR RESTLESS LEGS 09/29/2019 12/27/2019 Inactive Generic For:REQU IP 4 MG TABLET 09/29/2019 7:52:42 AM N O T I C E Last quantity doesn't match original quantity ropinirole 4 mg tablet RxNorm: 384318 3 TABLET(S) BY [facility] DAILY AT BEDTIME FOR RESTLESS LEGS 09/26/2019 09/28/2019 Inactive Generic For:REQU IP 4 MG TABLET 09/26/2019 9:08:48 AM N O T I C E Last quantity doesn't match original quantity ipratropium 0.5 mg-albuterol 3 mg (2.5 mg base)/3 mL n ebulization soln RxNorm: 7576756 USE 1 VIAL IN NEBULIZER EVERY FOUR HOURS (THIS REPLACES ALBUTEROL SOLUTION) 09/26/2019 10/15/2019 Inactive Generic For:*DUO NEB 2.5-0.5 MG/3 ML SOLN 09/26/2019 9:08:53 AM hydrocodone 10 mg-acetaminophen 325 mg tablet RxNorm: 232618 1 Tablet(s) Oral Q4H as needed for pain 09/09/2019 09/09/2019 Inactive hydrocodone 10 mg-acetaminophen 325 mg tablet RxNorm: 002859 1 Tablet(s) Oral Q4H as needed for pain 09/09/2019 09/08/2019 Inactive ondansetron HCl 4 mg tablet RxNorm: 132345 1 Tablet(s) Oral QPM for nausea 08/12/2019 10/10/2019 Inactive ipratropium 0.5 mg-albuterol 3 mg (2.5 mg base)/3 mL n ebulization soln RxNorm: 0964368 1 Unit Dose INH Q4H 08/12/2019 09/25/2019 Inactive replaces albuterol solution Augmentin 875 mg-125 mg tablet RxNorm: 313145 1 Tablet(s) Oral two times a day 08/07/2019 08/17/2019 Inactive prednisone 20 mg tablet RxNorm: 819124 1 Tablet(s) Oral QD 08/05/2008/04/2019 Inactive prednisone 20 mg tablet RxNorm: 225997 1 Tablet(s) Oral QD 08/05/2008/06/2019 Inactive Levaquin 500 mg tablet RxNorm: 354138 1 Tablet(s) Oral QD Replaces azithromycin (z-pack) 07/31/2019 08/05/2019 Inactive Levaquin 500 mg tablet RxNorm: 589568 1 Tablet(s) Oral QD Replaces azithromycin (z-pack) 07/21/2019 07/26/2019 Inactive Levaquin 500 mg tablet RxNorm: 469002 1 Tablet(s) Oral QD Replaces azithromycin (z-pack) 07/21/2019 07/20/2019 Inactive Zithromax Z-Gui 250 mg tablet RxNorm: 300547 Tablet(s) Oral 07/22/2019 Inactive Zithromax Z-Gui 250 mg tablet RxNorm: 304654 Tablet(s) Oral 07/15/2019 Inactive Symbicort 160 mcg-4.5 mcg/actuation HFA aerosol inhaler RxNo rm: 4909176 2 Puff(s) Inhalation two times a day 07/14/2019 07/14/2019 Inactive Tessalon Perles 100 mg capsule RxNorm: 517317 1 Capsule(s) Oral Q8H as needed 07/14/2019 08/06/2019 Inactive Seroquel 50 mg tablet RxNorm: 315400 1 Tablet(s) Oral QPM as ne eded for sleep 07/01/2019 10/06/2019 Inactive ondansetron HCl 4 mg tablet RxNorm: 650595 1 Tablet(s) Oral QPM for nausea 06/24/2019 07/24/2019 Inactive Seroquel 25 mg tablet RxNorm: 444511 1 Tablet(s) Oral every nig ht at bedtime 06/19/2019 06/18/2019 Inactive Seroquel 25 mg tablet RxNorm: 905013 1 Tablet(s) Oral every nig ht at bedtime 06/19/2019 06/30/2019 Inactive trazodone 150 mg tablet RxNorm: 462728 1/2 Tablet(s) PO QHS as needed for sleep 06/11/2019 06/17/2019 Inactive replaces PA on doxep in trazodone 150 mg tablet RxNorm: 199343 1/2 Tablet(s) PO QHS as needed for sleep 05/12/2019 06/11/2019 Inactive replaces PA on doxep in Vitamin D3 5,000 unit tablet RxNorm: 792956 1 Tablet(s) PO QD 05/09 No Stop Date Active magnesium oxide 400 mg (241.3 mg magnesium) tablet RxNorm: 1 36045 1 Tablet(s) PO QHS 05/09/2019 No Stop Date Active cyanocobalamin (vit B-12) 1,000 mcg/mL injection solution Rx Norm: 870991 1 injection weekly for 4 weeks 1 Milliliter(s) Inj 05/09/2019 12/21/2019 Inactive ferrous sulfate 325 mg (65 mg iron) tablet RxNorm: 568833 1 Tab let(s) PO QD 05/09/2019 12/21/2019 Inactive ropinirole 4 mg tablet RxNorm: 637820 3 TABLET(S) BY [facility] DAILY AT BEDTIME FOR RESTLESS LEGS 03/26/2019 06/23/2019 Inactive Generic For:REQU IP 4 MG TABLET 03/26/2019 11:23:36 AM N O T I C E Last quantity doesn't match original quantity hydroxyzine HCl 10 mg tablet RxNorm: 877645 1 Tablet(s) PO BID as needed 03/24/2019 04/06/2019 Inactive pantoprazole 40 mg tablet,delayed release RxNorm: 187554 Tablet(s) TAKE 1 TABLET BY MOUTH DAILY FOR STOMACH 03/24/2019 03/21/2020 Inactive Gener ic For:PROTONIX 40MG TAB EC 01/03/2019 1:23:44 PM ipratropium-albuterol 0.5 mg-3 mg(2.5 mg base)/3 mL ne bulization soln RxNorm: 0252520 1 Unit Dose INH Q4H 03/21/2019 No Stop Date Active replaces albuterol solution meclizine 12.5 mg tablet RxNorm: 079144 1 Tablet(s) PO BID as neede d 03/21/2019 12/21/2019 Inactive losartan 100 mg tablet RxNorm: 332995 1 Tablet(s) PO QD replace s lisinopril 03/13/2019 09/08/2019 Inactive fluconazole 100 mg tablet RxNorm: 877280 1 Tablet(s) PO QD 03/13/20 19 03/19/2019 Inactive nystatin 100,000 unit/mL oral suspension RxNorm: 282991 5 Unit( s) PO QID 03/13/2019 03/26/2019 Inactive tramadol 50 mg tablet RxNorm: 476025 1 Tablet(s) PO TID as needed for pain TAKE 2 TABS OF EXTRA STRENGTH TYLENOL WITH EACH DOSE 03/10/2019 04/06/2019 Inactive Generic For:*ULTRAM 50 MG TABLET 01/15/2019 4:55:26 PM Sinemet CR 50 mg-200 mg tablet,extended release RxNorm: 8343 41 1 Tablet(s) PO TID 02/26/2019 08/24/2019 Inactive Generic For:*SIN EMET CR 50/200 TABLET SA 07/08/2018 3:09:11 PM trazodone 150 mg tablet RxNorm: 534620 1/2 Tablet(s) PO QHS as needed for sleep 02/13/2019 02/12/2019 Inactive trazodone 150 mg tablet RxNorm: 229908 1/2 Tablet(s) PO QHS as needed for sleep 02/13/2019 02/25/2019 Inactive replaces PA on doxep in doxepin 10 mg capsule RxNorm: 0943655 1-2 Capsule(s) PO QHS prn sleep 02/13/2019 02/13/2019 Inactive Novolog U-100 Insulin aspart 100 unit/mL subcutaneous soluti on RxNorm: 194518 INJECT 10 UNIT(S) SUBCUTANEOUSLY BEFORE MEALS 01/31/2019 05/30/2019 In active 01/31/2019 1:39:10 PM ipratropium-albuterol 0.5 mg-3 mg(2.5 mg base)/3 mL ne bulization soln RxNorm: 2305965 1 Unit Dose INH Q4H 01/17/2019 03/20/2019 Inactive replaces albuterol solution tramadol 50 mg tablet RxNorm: 444785 1 Tablet(s) PO TID as needed for pain TAKE 2 TABS OF EXTRA STRENGTH TYLENOL WITH EACH DOSE 01/15/2019 02/03/2019 Inactive Generic For:*ULTRAM 50 MG TABLET 01/15/2019 4:55:26 PM Sinemet CR 50 mg-200 mg tablet,extended release RxNorm: 8343 41 1 Tablet(s) PO BID 01/03/2019 02/25/2019 Inactive Generic For:*SIN EMET CR 50/200 TABLET SA 07/08/2018 3:09:11 PM losartan 100 mg tablet RxNorm: 606374 1 Tablet(s) PO QD replace s lisinopril 01/03/2019 03/12/2019 Inactive Symbicort 160 mcg-4.5 mcg/actuation HFA aerosol inhaler RxNo rm: 0781793 2 Puff(s) INH BID 01/03/2019 01/02/2019 Inactive pantoprazole 40 mg tablet,delayed release RxNorm: 360591 TAKE 1 TABLET BY MOUTH DAILY FOR STOMACH 01/03/2019 03/23/2019 Inactive Generic For:HI OTONIX 40MG TAB EC 01/03/2019 1:23:44 PM nystatin 100,000 unit/mL oral suspension RxNorm: 281978 Unit(s) 5 Unit(s) PO QID swish and spit 01/02/2019 11/11/2019 Inactive Incruse Ellipta 62.5 mcg/actuation powder for inhalation RxN orm: 5668370 1 Capsule(s) INH QD 12/25/2018 12/21/2019 Inactive Tessalon Perles 100 mg capsule RxNorm: 625459 1 Capsule(s) PO T ID for cough 12/25/2018 02/25/2019 Inactive Medrol (Gui) 4 mg tablets in a dose pack RxNorm: 448349 Tablet(s) PO Use as directed 12/23/2018 01/02/2019 Inactive Levemir FlexTouch U-100 Insulin 100 unit/mL (3 mL) sub cutaneous pen RxNorm: 370519 20 Unit(s) SQ QD with pen needles 12/13/2018 05/11/2019 Inactiv e prednisone 20 mg tablet RxNorm: 773008 1 Tablet(s) PO QD 12/12/2018 0 12/11/2018 Inactive prednisone 20 mg tablet RxNorm: 701556 1 Tablet(s) PO QD 12/12/2018 0 12/16/2018 Inactive promethazine 6.25 mg-codeine 10 mg/5 mL syrup RxNorm: 421478 5 Milliliter(s) PO QHS as needed for cough 12/09/2018 12/18/2018 Inactive cefdinir 300 mg capsule RxNorm: 884415 1 Capsule(s) PO BID 03/18/12/18/2018 Inactive fluconazole 100 mg tablet RxNorm: 034537 1 Tablet(s) PO QD 12/06/19 19 12/08/2018 Inactive ropinirole 4 mg tablet RxNorm: 973410 3 Tablet(s) PO QHS for re stless legs 12/04/2018 03/03/2019 Inactive Novolog U-100 Insulin aspart 100 unit/mL subcutaneous soluti on RxNorm: 699089 INJECT 10 UNIT(S) SUBCUTANEOUSLY BEFORE MEALS 12/04/2018 01/30/2019 In active 12/04/2018 10:02:42 AM nystatin 100,000 unit/mL oral suspension RxNorm: 650507 5 Unit(s) PO QID swish and spit 11/25/2018 12/18/2018 Inactive ropinirole 4 mg tablet RxNorm: 380374 3 Tablet(s) PO QHS for re stless legs 11/04/2018 12/03/2018 Inactive prednisone 20 mg tablet RxNorm: 114051 1 Tablet(s) PO BID 10/23/2018 10/29/2018 Inactive ropinirole 4 mg tablet RxNorm: 140438 3 Tablet(s) PO QHS for re stless legs 10/14/2018 11/04/2018 Inactive pantoprazole 40 mg tablet,delayed release RxNorm: 227526 1 Tablet(s) PO QD [facility] 10/10/2018 01/02/2019 Inactive Symbicort 160 mcg-4.5 mcg/actuation HFA aerosol inhaler RxNo rm: 2997130 2 Puff(s) INH BID 10/10/2018 01/03/2019 Inactive Novolog U-100 Insulin aspart 100 unit/mL subcutaneous soluti on RxNorm: 510518 INJECT 10 UNIT(S) SUBCUTANEOUSLY BEFORE MEALS 10/10/2018 12/03/2018 In active 10/10/2018 11:30:01 AM Sinemet CR 50 mg-200 mg tablet,extended release RxNorm: 8343 41 1 Tablet(s) PO BID 09/26/2018 01/03/2019 Inactive Generic For:*SIN EMET CR 50/200 TABLET SA 07/08/2018 3:09:11 PM ropinirole 4 mg tablet RxNorm: 947763 2 Tablet(s) PO QHS for re stless legs 09/18/2018 10/13/2018 Inactive metformin ER 1,000 mg tablet,extended release 24hr RxNorm: 1 055920 1 Tablet(s) PO BID 09/09/2018 12/18/2018 Inactive ropinirole 4 mg tablet RxNorm: 888329 2 Tablet(s) PO QHS for re stless legs 08/21/2018 09/17/2018 Inactive doxycycline hyclate 100 mg capsule RxNorm: 0215274 1 Capsule(s) PO BID 08/07/2018 08/13/2018 Inactive ropinirole 4 mg tablet RxNorm: 893548 1 Tablet(s) PO QHS replac es 1mg dose 08/07/2018 08/20/2018 Inactive ropinirole 2 mg tablet RxNorm: 970923 TAKE 3 TABLETS BY MOUTH DAILY AT BEDTIME DO NOT EXCEED 3 TABLETS PER DAY!!!! 07/31/2018 08/06/2018 Inactive Generic For:REQUIP 2 MG TABLET 07/30/2018 3:50:28 PM Symbicort 160 mcg-4.5 mcg/actuation HFA aerosol inhaler RxNo rm: 2316247 2 Puff(s) INH BID 07/12/2018 10/09/2018 Inactive Sinemet CR 50 mg-200 mg tablet,extended release RxNorm: 8343 41 TAKE 1 TABLET BY MOUTH TWICE DAILY 07/08/2018 09/26/2018 Inactive Generic For:*S INEMET CR 50/200 TABLET SA 07/08/2018 3:09:11 PM losartan 100 mg tablet RxNorm: 672635 1 Tablet(s) PO QD replace s lisinopril 06/17/2018 12/13/2018 Inactive Novolog U-100 Insulin aspart 100 unit/mL subcutaneous soluti on RxNorm: 078340 10 Unit(s) SQ AC 06/17/2018 10/09/2018 Inactive albuterol sulfate 2.5 mg/3 mL (0.083 %) solution for n ebulization RxNorm: 205973 Milliliter(s) INH USE 1 VIAL IN NEBULIZE R EVERY FOUR HOURS NEEDED FOR WHEEZING OR SHORTNESS OF BREATH 06/13/2018 01/16/2019 Inactive Generic For:*PROVENTIL 0.83 MG/ML SOLUTN 06/13/2013 2:04:46 PM ropinirole 2 mg tablet RxNorm: 188909 3 Tablet(s) PO QH S DO NOT EXCEED 6MG (3 TABLETS) PER DAY!!!! 06/13/2018 07/31/2018 Inactive atorvastatin 40 mg tablet RxNorm: 061515 Tablet(s) TAKE 1 TABLET BY MOUTH EVERY DAY 05/13/2018 12/18/2018 Inactive Generic For:LIPI TOR 40MG TAB 05/01/2018 8:37:31 AM Sinemet CR 50 mg-200 mg tablet,extended release RxNorm: 8343 41 1 Tablet(s) PO BID 05/08/2018 07/06/2018 Inactive Lidocaine Viscous 2 % mucosal solution RxNorm: 3794052 5 Milliliter(s) PO QID as needed 05/02/2018 08/06/2018 Inactive Diflucan 100 mg tablet RxNorm: 066365 1 Tablet(s) PO QD 05/02/2018 Inactive atorvastatin 40 mg tablet RxNorm: 694605 TAKE 1 TABLET BY MOUTH EVERY DAY 05/01/2018 05/13/2018 Inactive Generic For:LIPITOR 40MG TAB 05/01/2018 8:37:31 AM nystatin 100,000 unit/mL oral suspension RxNorm: 274278 5 Unit(s) PO QID (before meals and at bedtime) 04/24/2018 04/30/2018 Inactive Ventolin HFA 90 mcg/actuation aerosol inhaler RxNorm: 360885 2 Puff(s) INH Q4H as needed one inhaler for home and one inhaler for car 04/23/201812/18 Inactive Mucinex 600 mg tablet, extended release RxNorm: 619010 1 Tablet(s) PO BID for congestion 04/22/2018 05/21/2018 Inactive prednisone 10 mg tablet RxNorm: 040396 Tablet(s) PO as directeds 08/06/2018 Inactive ropinirole 2 mg tablet RxNorm: 365685 3 Tablet(s) PO QH S DO NOT EXCEED 6MG (3 TABLETS) PER DAY!!!! 04/09/2018 05/08/2018 Inactive gabapentin 300 mg capsule RxNorm: 690788 1-2 Capsule(s) PO QHS 07/02/201804/08/2018 Inactive ropinirole 2 mg tablet RxNorm: 131093 1 Tablet(s) PO QHS 03/28/2018 0 04/08/2018 Inactive gabapentin 300 mg capsule RxNorm: 972132 1-2 Capsule(s) PO QHS 02/2303/29/2018 Inactive gabapentin 300 mg capsule RxNorm: 240673 1-2 Capsule(s) PO QHS 02/2203/13/2018 Inactive gabapentin 300 mg capsule RxNorm: 872721 2 Capsule(s) PO QHS 201703/11/2018 Inactive ropinirole 2 mg tablet RxNorm: 578594 1 Tablet(s) PO QHS 02/28/2018 0 03/28/2018 Inactive ropinirole 2 mg tablet RxNorm: 263997 1 Tablet(s) PO QHS 02/28/2018 0 02/27/2018 Inactive gabapentin 300 mg capsule RxNorm: 148150 1 Capsule(s) PO QHS 201702/27/2018 Inactive pantoprazole 40 mg tablet,delayed release RxNorm: 477838 1 Tablet(s) PO QD [facility] 01/23/2018 05/22/2018 Inactive Voltaren 1 % topical gel RxNorm: 438736 1 Gram(s) TOP QID to ri ght knee 01/23/2018 02/04/2018 Inactive metformin ER 500 mg tablet,extended release 24hr RxNorm: 860 975 2 Tablet(s) PO BID 01/09/2018 12/08/2018 Inactive Requip 1 mg tablet RxNorm: 157644 1 Tablet(s) PO QHS 01/09/201802/27 Inactive prednisone 20 mg tablet RxNorm: 349591 1 Tablet(s) PO T ID for 3 days then 1 po BID for 3 days then one daily for 3 days 01/02/2018 02/03/2018 Inactiv e Levaquin 500 mg tablet RxNorm: 003971 1 Tablet(s) PO QD 01/02/2018 Inactive ProAir HFA 90 mcg/actuation aerosol inhaler RxNorm: 810052 2 Puff(s) INH Q4H as needed 12/28/2017 No Stop Date Active please switch to ventolin if insurance doesn't cover montelukast 10 mg tablet RxNorm: 688168 1 Tablet(s) PO QD 12/28/2017 02/03/2018 Inactive Levaquin 500 mg tablet RxNorm: 308502 1 Tablet(s) PO QD 12/21/2017 Inactive ProAir HFA 90 mcg/actuation aerosol inhaler RxNorm: 021449 2 Puff(s) INH Q4H as needed 12/21/2017 12/27/2017 Inactive please switch to ventolin if insurance doesn't cover doxycycline hyclate 100 mg tablet RxNorm: 983771 1 Tablet(s) PO BID 12/17/2017 12/26/2017 Inactive Levemir FlexTouch U-100 Insulin 100 unit/mL (3 mL) sub cutaneous pen RxNorm: 889680 20 Unit(s) SQ QD with pen needles---Due for labs 12/11/2017 02/03/2018 Inactive Requip 1 mg tablet RxNorm: 333705 1 Tablet(s) PO QHS 12/10/201712/09 Inactive Requip 1 mg tablet RxNorm: 733901 1 Tablet(s) PO QHS 12/10/201701/09 Inactive albuterol sulfate 2.5 mg/3 mL (0.083 %) solution for n ebulization RxNorm: 318564 Milliliter(s) INH USE 1 VIAL IN NEBULIZE R EVERY FOUR HOURS NEEDED FOR WHEEZING OR SHORTNESS OF BREATH 12/05/2017 06/13/2018 Inactive Generic For:*PROVENTIL 0.83 MG/ML SOLUTN 06/13/2013 2:04:46 PM Tudorza Pressair 400 mcg/actuation breath activated RxNorm: 7594421 1 Puff(s) INH BID 12/03/2017 12/10/2017 Inactive Levemir FlexTouch U-100 Insulin 100 unit/mL (3 mL) sub cutaneous pen RxNorm: 089583 10 Unit(s) SQ QD with pen needles---Due for labs 11/16/2017 12/10/2017 Inactive Zofran ODT 4 mg disintegrating tablet RxNorm: 037114 1 Tablet(s) PO Q4H as needed for nausea 10/17/2017 02/04/2018 Inactive Efudex 5 % topical cream RxNorm: 285819 Application TOP QD prn to precancer skin lesions 10/17/2017 02/03/2018 Inactive Sinemet CR 50 mg-200 mg tablet,extended release RxNorm: 8343 41 1 Tablet(s) PO BID 10/17/2017 02/05/2018 Inactive Sinemet CR 50 mg-200 mg tablet,extended release RxNorm: 8343 41 1 Tablet(s) PO QHS 09/25/2017 10/16/2017 Inactive gabapentin 600 mg tablet RxNorm: 370767 1 Tablet(s) PO BID 08/15/20 17 08/14/2017 Inactive gabapentin 600 mg tablet RxNorm: 872607 1 Tablet(s) PO BID 08/15/20 17 12/10/2017 Inactive Novolog U-100 Insulin aspart 100 unit/mL subcutaneous soluti on RxNorm: 783023 10 Unit(s) SQ AC 08/15/2017 02/03/2018 Inactive Novolog 100 unit/mL subcutaneous solution RxNorm: 476366 10 Uni t(s) SQ AC 08/13/2017 08/14/2017 Inactive prednisone 20 mg tablet RxNorm: 111863 2 Tablet(s) PO QD 08/02/201710/04/2016 Inactive gabapentin 600 mg tablet RxNorm: 148901 Tablet(s) 1 Tab let(s) PO QHS replaces 300mg dose 07/09/2017 08/14/2017 Inactive Breo Ellipta 100 mcg-25 mcg/dose powder for inhalation RxNor m: 6075757 1 Unit Dose INH QD 07/02/2017 08/30/2017 Inactive Tudorza Pressair 400 mcg/actuation breath activated RxNorm: 3611293 1 Puff(s) INH BID 06/18/2017 12/02/2017 Inactive gabapentin 600 mg tablet RxNorm: 089132 1 Tablet(s) PO QHS repl aces 300mg dose 06/14/2017 07/08/2017 Inactive metformin ER 1,000 mg tablet,extended release 24hr RxNorm: 1 551510 1 Tablet(s) PO BID 05/29/2017 01/08/2018 Inactive cyclobenzaprine 5 mg tablet RxNorm: 228195 1 Tablet(s) PO TID 05/2906/07/2017 Inactive metformin ER 1,000 mg tablet,extended release 24hr RxNorm: 8 07595 1 Tablet(s) PO BID 05/25/2017 05/28/2017 Inactive metformin ER 1,000 mg tablet,extended release 24hr RxNorm: 8 11775 1 Tablet(s) PO BID 05/22/2017 05/24/2017 Inactive Amaryl 2 mg tablet RxNorm: 212316 1 Tablet(s) PO BID 05/01/201702/03 Inactive glimepiride 2 mg tablet RxNorm: 467561 1 Tablet(s) PO BID 04/19/2017 02/03/2018 Inactive ferrous sulfate 325 mg (65 mg iron) tablet RxNorm: 533128 1 Tab let(s) PO QHS 04/17/2017 02/03/2018 Inactive Requip 4 mg tablet RxNorm: 099053 1 Tablet(s) PO BID 04/12/201704/11 Inactive Requip 4 mg tablet RxNorm: 858152 1 Tablet(s) PO BID 04/12/201704/15 Inactive Levemir FlexTouch 100 unit/mL (3 mL) subcutaneous insulin pe n RxNorm: 005961 10 Unit(s) SQ QD with pen needles---Due for labs 04/05/2017 11/15/2017 In active Silenor 3 mg tablet RxNorm: 085236 1 Tablet(s) PO QHS 04/05/201709/25 Inactive ropinirole 4 mg tablet RxNorm: 156681 1 Tablet(s) PO QHS 03/29/2017 0 04/01/2017 Inactive ropinirole 4 mg tablet RxNorm: 494097 1 Tablet(s) PO QHS 03/29/2017 0 03/28/2017 Inactive Requip 4 mg tablet RxNorm: 014552 1 Tablet(s) PO QHS 03/28/201704/01 Inactive gabapentin 600 mg tablet RxNorm: 698402 1 Tablet(s) PO QHS repl aces 300mg dose 03/28/2017 04/15/2017 Inactive Requip 4 mg tablet RxNorm: 118216 1 Tablet(s) PO QHS 03/23/201703/27 Inactive gabapentin 600 mg tablet RxNorm: 406828 1 Tablet(s) PO QHS 03/13/20 17 03/12/2017 Inactive gabapentin 600 mg tablet RxNorm: 913896 1 Tablet(s) PO QHS 03/13/20 17 03/27/2017 Inactive gabapentin 300 mg capsule RxNorm: 513599 1 Capsule(s) PO QPM 201603/12/2017 Inactive Generic For:NEURONTIN 300 MG CAPSULE 01/22/2017 10:10:39 AM losartan 100 mg tablet RxNorm: 505731 1 Tablet(s) PO QD replace s lisinopril 02/21/2017 06/17/2018 Inactive gabapentin 300 mg capsule RxNorm: 282363 TAKE 1 CAPSULE BY MOUT H EVERY EVENING 01/22/2017 02/21/2017 Inactive Generic For:NEURONTI N 300 MG CAPSULE 01/22/2017 10:10:39 AM gabapentin 300 mg capsule RxNorm: 721790 1 Capsule(s) PO QPM 201601/21/2017 Inactive Requip 4 mg tablet RxNorm: 661932 1 Tablet(s) PO QHS 12/21/201603/20 Inactive Effient 10 mg tablet RxNorm: 164783 1 Tablet(s) PO QD 12/12/201612/23 Inactive gabapentin 300 mg capsule RxNorm: 455944 1 Capsule(s) PO QPM 201612/03/2016 Inactive gabapentin 300 mg capsule RxNorm: 247586 1 Capsule(s) PO QPM 201612/13/2016 Inactive Requip 4 mg tablet RxNorm: 065713 1 Tablet(s) PO QHS 11/28/201612/21 Inactive atorvastatin 40 mg tablet RxNorm: 819397 Tablet(s) 1 Tablet(s) PO Q D 11/22/2016 08/18/2017 Inactive atorvastatin 40 mg tablet RxNorm: 283177 1 Tablet(s) PO QD 11/23/19 17 11/21/2016 Inactive ropinirole 1 mg tablet RxNorm: 515491 2.5 Tablet(s) PO QPM for legs/sleep 11/14/2016 11/27/2016 Inactive nystatin 100,000 unit/mL oral suspension RxNorm: 094583 5 Unit(s) PO QID swish and spit 10/31/2016 02/03/2018 Inactive fluconazole 100 mg tablet RxNorm: 157123 1 Tablet(s) PO QD 10/31/19 17 11/09/2016 Inactive doxycycline hyclate 100 mg capsule RxNorm: 9375305 1 Capsule(s) PO BID 10/03/2016 10/12/2016 Inactive Levemir FlexTouch 100 unit/mL (3 mL) subcutaneous insulin pe n RxNorm: 043368 10 Unit(s) SQ QD with pen needles 09/18/2016 04/04/2017 Inactive amitriptyline 25 mg tablet RxNorm: 875580 1 Tablet(s) P O QHS as needed for sleep 09/04/2016 10/17/2016 Inactive ropinirole 1 mg tablet RxNorm: 196575 1.5 Tablet(s) PO QPM for legs/sleep 09/04/2016 11/13/2016 Inactive amitriptyline 25 mg tablet RxNorm: 522246 1 Tablet(s) P O QHS as needed for sleep 08/22/2016 09/03/2016 Inactive clopidogrel 75 mg tablet RxNorm: 997196 1 Tablet(s) PO QD 08/10/2016 10/17/2016 Inactive Zoloft 100 mg tablet RxNorm: 832517 2 Tablet(s) PO QHS 08/10/2016 Inactive atorvastatin 40 mg tablet RxNorm: 577885 1 Tablet(s) PO QD 08/10/20 16 10/17/2016 Inactive ropinirole 1 mg tablet RxNorm: 106428 1 Tablet(s) PO QPM for le gs/sleep 08/10/2016 09/03/2016 Inactive losartan 100 mg tablet RxNorm: 318604 1 Tablet(s) PO QD replace s lisinopril 07/20/2016 02/21/2017 Inactive Zofran 4 mg tablet RxNorm: 874688 1 Tablet(s) PO Q4H as needed for nausea 07/06/2016 10/17/2016 Inactive Flagyl 500 mg tablet RxNorm: 189672 1 Tablet(s) PO TID 07/06/2016 Inactive Plavix 75 mg tablet RxNorm: 851405 1 Tablet(s) PO QD 06/08/201607/05 Inactive isosorbide mononitrate ER 30 mg tablet,extended release 24 h r RxNorm: 473336 1 Tablet(s) PO QAM 06/08/2016 08/09/2016 Inactive atorvastatin 40 mg tablet RxNorm: 675229 1 Tablet(s) PO QD 06/08/20 08/09/2016 Inactive hydrochlorothiazide 12.5 mg tablet RxNorm: 132232 1 Tablet(s) PO QA M 06/08/2016 07/05/2016 Inactive metformin ER 1,000 mg tablet,extended release 24hr RxNorm: 8 08368 1 Tablet(s) PO BID 06/08/2016 09/05/2016 Inactive metoprolol tartrate 25 mg tablet RxNorm: 334994 1/2 Tablet(s) PO BI D 06/08/2016 08/09/2016 Inactive Zoloft 100 mg tablet RxNorm: 083001 2 Tablet(s) PO QHS 04/03/2016 Inactive metformin ER 1,000 mg tablet,extended release 24hr RxNorm: 8 62822 Tablet(s) 1 Tablet(s) PO QD 03/30/2016 12/18/2018 Inactive Levemir FlexTouch 100 unit/mL (3 mL) subcutaneous insulin pe n RxNorm: 778814 10 Unit(s) SQ QD 03/09/2016 03/08/2016 Inactive Levemir FlexTouch 100 unit/mL (3 mL) subcutaneous insulin pe n RxNorm: 933765 10 Unit(s) SQ QD with pen needles 03/09/2016 03/20/2016 Inactive Mobic 15 mg tablet RxNorm: 015462 1 Tablet(s) PO QD for foot pain 0 02/17/2016 03/17/2016 Inactive Zoloft 100 mg tablet RxNorm: 357125 1 1/2 Tablet(s) PO QHS 01/31/20 16 04/02/2016 Inactive omeprazole 20 mg capsule,delayed release RxNorm: 694744 TAKE 2 CAPSULES BY MOUTH EVERY DAY 01/12/2016 08/09/2016 Inactive Generic For:*CHERYL LOSEC [address] 01/12/2016 8:58:34 AM Zoloft 100 mg tablet RxNorm: 867676 1/2 Tablet(s) PO QH S for 1 week then 1 tablet po q HS 12/30/2015 01/27/2016 Inactive Ventolin HFA 90 mcg/actuation aerosol inhaler RxNorm: 957802 2 Puff(s) INH QID as needed for shortness of breath 12/30/2015 02/03/2018 Inactive [AttnRPh: Saving apply/adjudicate RxGRP:SG20 RxBIN:[id number] RxPCN: ID#:[id number]] metformin ER 1,000 mg tablet,extended release 24hr RxNorm: 8 27546 1 Tablet(s) PO QD 12/20/2015 03/18/2016 Inactive clindamycin 300 mg capsule RxNorm: 943180 1 Capsule(s) PO TID 12/0512/15/2015 Inactive mupirocin 2 % topical cream RxNorm: 045866 TOP to facial lesion s twice daily 11/15/2015 12/15/2015 Inactive cefdinir 300 mg capsule RxNorm: 940211 1 Capsule(s) PO BID 11/15/19 16 11/24/2015 Inactive Medrol (Gui) 4 mg tablets in a dose pack RxNorm: 364240 Tablet(s) PO as directed 10/11/2015 12/15/2015 Inactive albuterol sulfate 2.5 mg/3 mL (0.083 %) solution for n ebulization RxNorm: 174722 INH USE 1 VIAL IN NEBULIZER EVERY FOUR H OURS NEEDED FOR WHEEZING OR SHORTNESS OF BREATH 10/05/2015 10/04/2015 Inactive Generic For:*PRO VENTIL 0.83 MG/ML SOLUTN 06/13/2013 2:04:46 PM doxycycline hyclate 100 mg capsule RxNorm: 9895672 1 Capsule(s) PO BID 10/05/2015 10/14/2015 Inactive albuterol sulfate 2.5 mg/3 mL (0.083 %) solution for n ebulization RxNorm: 726375 Milliliter(s) INH USE 1 VIAL IN NEBULIZE R EVERY FOUR HOURS NEEDED FOR WHEEZING OR SHORTNESS OF BREATH Dx: J44.9 10/05/2015 12/05/2017 Inacti ve Generic For:*PROVENTIL 0.83 MG/ML SOLUTN 06/13/2013 2:04:46 PM albuterol sulfate 2.5 mg/3 mL (0.083 %) solution for n ebulization RxNorm: 106475 3 Milliliter(s) INH USE 1 VIAL IN NEBULI ZER EVERY FOUR HOURS NEEDED FOR WHEEZING OR SHORTNESS OF BREATH 09/06/2015 10/04/2015 Inactive Generic For:*PROVENTIL 0.83 MG/ML SOLUTN 06/13/2013 2:04:46 PM Tradjenta 5 mg tablet RxNorm: 3919579 2 Tablet(s) PO QD 07/22/2015 Inactive albuterol sulfate 2.5 mg/3 mL (0.083 %) solution for n ebulization RxNorm: 289084 3 Milliliter(s) INH USE 1 VIAL IN NEBULI ZER EVERY FOUR HOURS NEEDED FOR WHEEZING OR SHORTNESS OF BREATH 06/29/2015 09/05/2015 Inactive Generic For:*PROVENTIL 0.83 MG/ML SOLUTN 06/13/2013 2:04:46 PM albuterol sulfate 2.5 mg/3 mL (0.083 %) solution for n ebulization RxNorm: 034217 Milliliter(s) INH USE 1 VIAL IN NEBULIZE R EVERY FOUR HOURS NEEDED FOR WHEEZING OR SHORTNESS OF BREATH 06/29/2015 12/04/2017 Inactive Generic For:*PROVENTIL 0.83 MG/ML SOLUTN 06/13/2013 2:04:46 PM doxycycline hyclate 100 mg tablet RxNorm: 134524 1 Tablet(s) PO BID 06/28/2015 07/07/2015 Inactive losartan 100 mg tablet RxNorm: 586821 1 Tablet(s) PO QD -replac es lisinopril 06/14/2015 09/05/2015 Inactive metformin ER 1,000 mg tablet,extended release 24hr RxNorm: 8 27885 1 Tablet(s) PO QD 06/14/2015 09/11/2015 Inactive losartan 100 mg tablet RxNorm: 853825 1 Tablet(s) PO QD -replac es lisinopril 06/14/2015 12/10/2015 Inactive Zocor 20 mg tablet RxNorm: 210162 Tablet(s) Tablet(s) 1 Tablet(s) PO QD -needs lipids labs 06/14/2015 06/14/2015 Inactive atorvastatin 40 mg tablet RxNorm: 334458 1 Tablet(s) PO QD repl aces simvastatin 06/14/2015 12/10/2015 Inactive loratadine 10 mg tablet RxNorm: 535640 Tablet(s) 1 Tablet(s) PO QD for drainage 06/14/2015 06/07/2016 Inactive Celexa 40 mg tablet RxNorm: 931139 1 Tablet(s) PO QD TA KE ONE (1) TABLET BY MOUTH DAILY 06/14/2015 12/29/2015 Inactive Generic For:HARJINDER XA 40 MG TABLET clindamycin 300 mg capsule RxNorm: 678093 2 Capsule(s) PO BID 06/0306/12/2015 Inactive metformin ER 1,000 mg tablet,extended release 24hr RxNorm: 8 85120 1 Tablet(s) PO QD 06/03/2015 06/02/2015 Inactive metformin ER 1,000 mg tablet,extended release 24hr RxNorm: 8 98507 1 Tablet(s) PO QD 06/03/2015 06/13/2015 Inactive mupirocin 2 % topical ointment RxNorm: 624169 TOP apply to open lesion of knee twice daily 06/03/2015 01/30/2016 Inactive Zocor 20 mg tablet RxNorm: 336915 Tablet(s) 1 Tablet(s ) PO QD -needs lipids labs 05/13/2015 06/13/2015 Inactive Celexa 40 mg tablet RxNorm: 884334 1 Tablet(s) PO QD TA KE ONE (1) TABLET BY MOUTH DAILY 05/13/2015 06/13/2015 Inactive Generic For:HARJINDER XA 40 MG TABLET Zocor 20 mg tablet RxNorm: 295550 Tablet(s) 1 Tablet(s ) PO QD -needs lipids labs 02/23/2015 03/24/2015 Inactive loratadine 10 mg tablet RxNorm: 914147 1 Tablet(s) PO QD for dr saenz 12/24/2014 06/13/2015 Inactive Zocor 20 mg tablet RxNorm: 169302 1 Tablet(s) PO QD -needs lipi ds labs 11/17/2014 02/23/2015 Inactive Celexa 40 mg tablet RxNorm: 081144 1 Tablet(s) PO QD 1 Tablet(s) PO QD 1 Tablet(s) PO QD Generic OKAY 11/11/2014 05/13/2015 Inactive Zocor 20 mg tablet RxNorm: 480484 1 Tablet(s) PO QD -needs lipi ds labs 11/11/2014 11/16/2014 Inactive omeprazole 20 mg capsule,delayed release RxNorm: 584417 2 Capsule(s) PO QD TAKE 2 CAPSULES BY MOUTH DAILY 10/27/2014 04/24/2015 Inactive Shena harp For:*PRILOSEC 20 MG CAPSULE trazodone 50 mg tablet RxNorm: 024210 1 1/2 Tablet(s) PO QHS 201412/29/2015 Inactive losartan 100 mg tablet RxNorm: 554801 1 Tablet(s) PO QD -replac es lisinopril 10/26/2014 04/23/2015 Inactive Levaquin 500 mg tablet RxNorm: 970495 1 Tablet(s) PO QD 10/08/2014 Inactive Levaquin 500 mg tablet RxNorm: 809110 1 Tablet(s) PO QD 10/08/2014 Inactive Diflucan 100 mg tablet RxNorm: 416188 1 Tablet(s) PO QD 10/06/2014 Inactive DuoNeb 0.5 mg-3 mg(2.5 mg base)/3 mL solution for nebulizati on RxNorm: 4629588 3 Milliliter(s) INH QID 09/23/2014 08/09/2016 Inactive Ventolin HFA 90 mcg/actuation aerosol inhaler RxNorm: 996443 2 Puff(s) INH QID as needed for shortness of breath 09/21/2014 12/29/2015 Inactive [AttnRPh: Saving apply/adjudicate RxGRP:SG20 RxBIN:[id number] RxPCN: ID#:[id number]] promethazine-codeine 6.25 mg-10 mg/5 mL syrup RxNorm: 560784 1 Teaspoon(s) PO QHS as needed for cough 09/08/2014 09/20/2014 Inactive prednisone 20 mg tablet RxNorm: 255242 1 Tablet(s) PO BID 09/02/2014 09/08/2014 Inactive promethazine-codeine 6.25 mg-10 mg/5 mL syrup RxNorm: 477488 1 Teaspoon(s) PO Q4H 09/02/2014 09/20/2014 Inactive doxycycline monohydrate 100 mg capsule RxNorm: 205873 1 Capsule (s) PO BID 09/02/2014 09/07/2014 Inactive Tessalon Perles 100 mg capsule RxNorm: 946686 1 Capsule (s) PO TID as needed for cough 08/31/2014 09/20/2014 Inactive Actos 15 mg tablet RxNorm: 542341 1 Tablet(s) PO QAM 1 Tablet(s ) PO QAM 08/26/2014 09/20/2014 Inactive loratadine 10 mg tablet RxNorm: 193167 1 Tablet(s) PO QD for dr saenz 08/26/2014 10/26/2014 Inactive Zithromax 500 mg tablet RxNorm: 752841 1 Tablet(s) PO QD 08/25/2014 1 11/01/2013 Inactive Zithromax 500 mg tablet RxNorm: 272613 1 Tablet(s) PO QD 08/25/2014 1 10/25/2013 Inactive Trazadone 75mg Tablet RxNorm: 1 Tablet(s) PO QHS 08/10/20142018 Inactive Zocor 20 mg tablet RxNorm: 456811 1 Tablet(s) PO QD 08/10/20142014 Inactive Trazadone 75mg Tablet RxNorm: 1 Tablet(s) PO QHS as need ed for sleep 08/10/2014 10/08/2014 Inactive Celexa 40 mg tablet RxNorm: 982021 1 Tablet(s) PO QD 1 Tablet(s) PO QD 1 Tablet(s) PO QD Generic OKAY 06/09/2014 10/06/2014 Inactive Actos 15 mg tablet RxNorm: 645366 1 Tablet(s) PO QAM 05/12/201408/26 Inactive lisinopril 20 mg tablet RxNorm: 058493 1 Tablet(s) PO QD 05/12/2014 0 10/26/2014 Inactive TAKE ONE TABLET BY MOUTH EVERY DAY;Gener ic For:*PRINIVIL 20 MG TABLET [AttnRPh: Saving apply/adjudicate RxGRP:SG20 RxBIN:[id number] RxPCN: ID#:[id number]] hydrocodone 5 mg-acetaminophen 325 mg tablet RxNorm: 497332 1 Tablet(s) PO TID as needed for pain for severe pain 04/30/2014 08/09/2014 Inactive hydrocodone 5 mg-acetaminophen 325 mg tablet RxNorm: 362914 1 Tablet(s) PO TID as needed for pain for severe pain 04/17/2014 04/29/2014 Inactive doxycycline hyclate 100 mg capsule RxNorm: 412320 1 Capsule(s) PO BID 03/05/2014 03/04/2014 Inactive doxycycline hyclate 100 mg capsule RxNorm: 206744 1 Capsule(s) PO BID 03/05/2014 03/14/2014 Inactive albuterol sulfate 2.5 mg/3 mL (0.083 %) solution for n ebulization RxNorm: 167859 Milliliter(s) INH USE 1 VIAL IN NEBULIZE R EVERY FOUR HOURS NEEDED FOR WHEEZING OR SHORTNESS OF BREATH 03/02/2014 06/29/2015 Inactive Generic For:*PROVENTIL 0.83 MG/ML SOLUTN 06/13/2013 2:04:46 PM Celexa 40 mg tablet RxNorm: 460944 1 Tablet(s) PO QD 1 Tablet(s) PO QD replaces lexapro. Generic OKAY 01/13/2014 06/09/2014 Inactive Actos 15 mg tablet RxNorm: 295081 1 Tablet(s) PO QAM 01/07/201405/12 Inactive lisinopril 20 mg tablet RxNorm: 917771 1 Tablet(s) PO QD 12/08/2013 0 05/12/2014 Inactive TAKE ONE TABLET BY MOUTH EVERY DAY;Gener ic For:*PRINIVIL 20 MG TABLET cefdinir 300 mg capsule RxNorm: 813558 2 Capsule(s) PO QD 11/10/2013 08/09/2014 Inactive cefdinir 300 mg capsule RxNorm: 125836 2 Capsule(s) PO QD 10/09/2013 10/15/2013 Inactive Actos 15 mg tablet RxNorm: 644626 1 Tablet(s) PO QAM 10/09/201301/06 Inactive doxycycline hyclate 100 mg capsule RxNorm: 4560706 1 Capsule(s) PO Q12H 09/18/2013 09/27/2013 Inactive omeprazole 20 mg capsule,delayed release RxNorm: 220447 2 Capsule(s) PO QD TAKE 2 CAPSULES BY MOUTH DAILY 09/03/2013 03/01/2014 Inactive Generi c For:*PRILOSEC [address] Celexa 40 mg tablet RxNorm: 496132 1 Tablet(s) PO QD re places lexapro. Generic OKAY 09/03/2013 01/13/2014 Inactive Symbicort 160 mcg-4.5 mcg/actuation HFA aerosol inhaler RxNo rm: 4546995 2 Puff(s) INH BID 08/13/2013 03/23/2014 Inactive metformin 1,000 mg tablet RxNorm: 745711 1 Tablet(s) PO BID 013 08/12/2013 Inactive TAKE ONE TABLET BY MOUTH TWI CE DAILY;Generic For:GLUCOPHAGE 1,000 MG TABLET 08/27/12 Thank you Actos 15 mg tablet RxNorm: 318291 1 Tablet(s) PO QAM 06/23/201310/09 Inactive lisinopril 20 mg tablet RxNorm: 583882 1 Tablet(s) PO QD 06/23/2013 0 12/08/2013 Inactive TAKE ONE TABLET BY MOUTH EVERY DAY;Gener ic For:*PRINIVIL 20 MG TABLET albuterol sulfate 2.5 mg/3 mL (0.083 %) solution for n ebulization RxNorm: 872299 Solution for Nebulization INH USE 1 VIAL IN NEBULIZER EVERY FOUR HOURS NEEDED FOR WHEEZING OR SHORTNESS OF BREATH 06/16/2013 03/01/2014 Inactive Generic For:*PROVENTIL 0.83 MG/ML SOLUTN 06/13/2013 2:04:46 PM prednisone 10 mg tablet RxNorm: 724979 1 Tablet(s) PO BID 04/09/2013 04/13/2013 Inactive AndroGel 1.25 gram/actuation (1%) Transdermal Gel Pump RxNorm: 2 32360 TD 04/09/2013 08/09/2014 Inactive APPLY 4 PUMPS OF GEL AT BEDTIME DIRECTED;WC (Appended: Controlled substance eRx refill - RxReferenceNumber: [id number]) azithromycin 250 mg tablet RxNorm: 861381 2 Tablet(s) PO QD 013 04/16/2013 Inactive Amaryl 2 mg tablet RxNorm: 257233 1 Tablet(s) PO BID N eeds appt in 1 month (around March 21) 02/18/2013 08/12/2013 Inactive Amaryl 2 mg tablet RxNorm: 784848 1 Tablet(s) PO BID 02/18/201302/17 Inactive metformin 1,000 mg tablet RxNorm: 718511 1 Tablet(s) PO BID 013 07/27/2013 Inactive TAKE ONE TABLET BY MOUTH TWI CE DAILY;Generic For:GLUCOPHAGE 1,000 MG TABLET 08/27/12 Thank you Actos 15 mg tablet RxNorm: 473021 1 Tablet(s) PO QAM 02/04/201306/03 Inactive albuterol sulfate 2.5 mg/3 mL (0.083 %) Neb Solution RxNorm: 888776 1 Unit Dose INH Q4H prn wheezing or shortness of breath 01/30/2013 06/15/2013 Inac tive Medrol (Gui) 4 mg tablets in a dose pack RxNorm: 162228 Tablet(s) PO as directed 01/20/2013 07/15/2013 Inactive cefdinir 300 mg capsule RxNorm: 002323 1 Capsule(s) PO BID anti biotic 01/20/2013 01/29/2013 Inactive lisinopril 20 mg tablet RxNorm: 573386 Tablet(s) PO 01/13/20132012 Inactive TAKE ONE TABLET BY MOUTH EVERY DAY;Gener ic For:*PRINIVIL 20 MG TABLET citalopram 40 mg tablet RxNorm: 900744 Tablet(s) PO 01/13/20132013 Inactive TAKE ONE (1) TABLET BY MOUTH DAILY;Gener ic For:CELEXA 40 MG TABLET omeprazole 20 mg capsule,delayed release RxNorm: 807483 Capsule(s) PO TAKE 2 CAPSULES BY MOUTH DAILY 11/15/2012 09/03/2013 Inactive Generic For:*PRILOSEC [address] amoxicillin 875 mg tablet RxNorm: 281244 1 Tablet(s) PO BID 013 10/28/2012 Inactive Actos 30 mg tablet RxNorm: 148154 1 Tablet(s) PO QD 09/23/20122011 Inactive Actos 15 mg tablet RxNorm: 880270 1 Tablet(s) PO QAM 09/23/201209/22 Inactive Actos 15 mg tablet RxNorm: 987006 1 Tablet(s) PO QAM 09/23/201202/04 Inactive prednisone 20 mg tablet RxNorm: 109864 1 Tablet(s) PO BID 08/28/2012 09/03/2012 Inactive doxycycline hyclate 100 mg tablet RxNorm: 7286073 1 Tablet(s) PO BI D 08/28/2012 09/06/2012 Inactive metformin 1,000 mg tablet RxNorm: 712059 Tablet(s) PO 08/27/201201/22 Inactive TAKE ONE TABLET BY MOUTH TWICE DAILY;Gen joshua For:GLUCOPHAGE 1,000 MG TABLET 08/27/12 Thank you citalopram 40 mg tablet RxNorm: 195223 Tablet(s) PO 07/30/20122012 Inactive TAKE ONE (1) TABLET BY MOUTH DAILY;Gener ic For:CELEXA 40 MG TABLET lisinopril 20 mg tablet RxNorm: 161474 Tablet(s) PO 07/30/20122012 Inactive TAKE ONE TABLET BY MOUTH EVERY DAY;Gener ic For:*PRINIVIL 20 MG TABLET AndroGel 1.25 gram/actuation (1%) Transdermal Gel Pump RxNor m: [id number] Gel in Metered-Dose Pump TD 07/09/2012 04/08/2013 Inactive APPLY 4 PUM PS OF GEL AT BEDTIME DIRECTED;WC (Appended: Controlled substance eRx refill - RxReferenceNumber: [id number]) citalopram 40 mg tablet RxNorm: 101274 Tablet(s) PO 07/01/20122011 Inactive TAKE ONE (1) TABLET BY MOUTH DAILY;Gener ic For:CELEXA 40 MG TABLET metformin 1,000 mg tablet RxNorm: 967714 1 Tablet(s) PO BID 012 08/25/2012 Inactive TAKE 1 TABLET BY MOUTH TWICE DAILY;Generic For:GLUCOPHAGE 1,000 MG TABLET meclizine 25 mg Tab RxNorm: 667735 1 Tablet(s) PO QID prn dizziness 05/09/2012 05/18/2012 Inactive lisinopril 20 mg tablet RxNorm: 461203 Tablet(s) PO QD 04/22/2012 Inactive TAKE ONE (1) TABLET BY MOUTH DAILY;Gener ic For:*PRINIVIL 20 MG TABLET metformin 1,000 mg tablet RxNorm: 552591 Tablet(s) PO 03/19/201212/2011 Inactive TAKE 1 TABLET BY MOUTH TWICE DAILY;Gener ic For:GLUCOPHAGE 1,000 MG TABLET cefdinir 300 mg Cap RxNorm: 749307 1 Capsule(s) PO BID 11/28/2011 Inactive cefdinir 300 mg Cap RxNorm: 731793 1 Capsule(s) PO BID 11/01/2011 Inactive citalopram 40 mg tablet RxNorm: 573575 Tablet(s) PO 10/30/20112011 Inactive TAKE ONE (1) TABLET BY MOUTH DAILY;Gener ic For:CELEXA 40 MG TABLET cefdinir 300 mg Cap RxNorm: 861917 1 Capsule(s) PO BID 10/02/2011 Inactive metformin 1,000 mg Tab RxNorm: 872353 1 Tablet(s) PO BID 09/28/2011 0 01/25/2012 Inactive citalopram 40 mg Tab RxNorm: 597423 1 Tablet(s) PO QD 09/28/201111/2011 Inactive omeprazole 20 mg capsule,delayed release RxNorm: 355262 2 Capsu le(s) PO QD 09/28/2011 03/25/2012 Inactive lisinopril 20 mg Tab RxNorm: 349646 Tablet(s) PO 08/21/2011 04/21/2012 Inactive TAKE ONE (1) TABLET BY MOUTH DAILY;Generic For:*PRINIVIL 20 MG TABLET AndroGel 1.25 gram/actuation (1%) Transdermal Gel Pump RxNor m: 8868116 Gel in Metered-dose Pump TD 08/21/2011 07/09/2012 Inactive APPLY 4 PUM PS OF GEL AT BEDTIME DIRECTED (Appended: Controlled substance eRx refill - RxReferenceNumber: [id number]) Lantus Solostar 100 unit/mL (3 mL) Sub-Q Insulin Pen RxNorm: 945931 30 Unit(s) SQ QD 06/20/2011 05/08/2012 Inactive Lantus Solostar 100 unit/mL (3 mL) Sub-Q Insulin Pen RxNorm: 298551 30 Unit(s) SQ QD 06/19/2011 06/19/2011 Inactive metformin 1,000 mg Tab RxNorm: 820324 1 Tablet(s) PO BID 05/12/2011 1 11/09/2010 Inactive citalopram 40 mg Tab RxNorm: 799456 1 Tablet(s) PO QD 03/06/20110 05/2011 Inactive metformin 1,000 mg Tab RxNorm: 978207 1 Tablet(s) PO BID 12/27/2010 0 04/25/2011 Inactive lisinopril 20 mg Tab RxNorm: 320396 Tablet(s) PO TAKE 1 TABLET BY MOUTH EVERY DAY;Generic For:*PRINIVIL 20 MG TABLET 12/26/2010 08/20/2011 Inactive Ceftin 500 mg Tab RxNorm: 128139 1 Tablet(s) PO BID 12/19/20102010 Inactive omeprazole 20 mg Cap, Delayed Release RxNorm: 469125 2 Capsule( s) PO QD 09/13/2010 03/11/2011 Inactive Byetta 10 mcg/0.04 mL per dose Sub-Q Pen Injector RxNorm: 84 7913 1 Unit Dose SQ BID 09/07/2010 10/06/2010 Inactive Celexa 40 mg tablet RxNorm: 446965 1 Tablet(s) PO QD re places lexapro. Generic OKAY 08/09/2010 02/04/2011 Inactive Actos 30 mg Tab RxNorm: 348199 1 Tablet(s) PO QD 08/09/2010 04/02/2011 Inactive lisinopril 20 mg Tab RxNorm: 574147 1 Tablet(s) PO QD 08/09/201011/22 Inactive metformin 1,000 mg Tab RxNorm: 348075 1 Tablet(s) PO BID 08/09/2010 0 12/06/2010 Inactive Metformin 1,000 mg Tab RxNorm: 999198 1 Tablet(s) PO BID 04/26/2010 0 04/25/2010 Inactive metformin 1,000 mg Tab RxNorm: 524810 1 Tablet(s) PO BID 04/26/2010 1 Inactive Lomotil 2.5 mg-0.025 mg Tab RxNorm: 2131051 1 Tablet(s) PO TID 1-2 TABS THREE TIMES DAILY 04/05/2010 04/07/2010 Inactive Mupirocin 2 % Topical Cream RxNorm: 598303 TOP BID 04/05/201003/25 Inactive lisinopril 20 mg Tab RxNorm: 987250 1 Tablet(s) PO QD 03/29/201010/2009 Inactive Actos 30 mg Tab RxNorm: 844311 1 Tablet(s) PO QD 03/29/2010 07/26/2010 Inactive Lisinopril 20 mg Tab RxNorm: 707290 1 Tablet(s) PO QD 02/27/201001/2010 Inactive Actos 30 mg Tab RxNorm: 010343 1 Tablet(s) PO QD 02/14/2010 03/28/2010 Inactive Celexa 40 mg Tab RxNorm: 193249 1 Tablet(s) PO QD replaces lexapro 01/13/2010 07/11/2010 Inactive Cyclobenzaprine 10 mg Tab RxNorm: 616194 1 Tablet(s) PO TID prn spasm 12/23/2009 01/21/2010 Inactive Cyclobenzaprine 10 mg Tab RxNorm: 093424 1 Tablet(s) PO TID 010 12/22/2009 Inactive Hydrocodone-Acetaminophen 7.5 mg-750 mg Tab RxNorm: 761648 1 Ta blet(s) PO Q4-6H 12/23/2009 12/22/2009 Inactive aspirin 81 mg tablet RxNorm: 510125 1 Tablet(s) PO QD No Start Date Active isosorbide mononitrate ER 60 mg tablet,extended release 24 h r RxNorm: 641323 1 Tablet(s) PO QD No Start Date Active amlodipine 5 mg tablet RxNorm: 678968 1 Tablet(s) PO QD No Start Date Active Vitamin D3 1,000 unit tablet RxNorm: 985704 3 Tablet(s) PO QD No St art Date 10/26/2014 Inactive Lexapro 20 mg Tab RxNorm: 104322 1 Tablet(s) PO QD No Start Date 12/24 Inactive loperamide 2 mg tablet RxNorm: 753949 Tablet(s) PO PRN No Start Date 06/07/2016 Inactive Levemir FlexTouch U-100 Insulin 100 unit/mL (3 mL) sub cutaneous pen RxNorm: 544869 22 Unit(s) SQ QD No Start Date 12/21/2019 Inactive Janumet 50 mg-1,000 mg Tab RxNorm: 263313 1 Tablet(s) PO BID No Sta rt Date 01/12/2010 Inactive Levemir U-100 Insulin 100 unit/mL subcutaneous solution RxNo rm: 434975 10 Unit(s) SQ QHS No Start Date 12/08/2018 Inactive Medrol (Gui) 4 mg tablets in a dose pack RxNorm: 543687 Tablet(s) PO Use as directed No Start Date 12/22/2018 Inactive aspirin 325 mg tablet RxNorm: 672747 1 Tablet(s) PO QD No Start Date 08/09/2016 Inactive Efudex 5 % Topical Cream RxNorm: 172436 Application TOP QD prn fto skin lesion No Start Date 08/12/2013 Inactive nitroglycerin 0.4 mg sublingual tablet RxNorm: 593153 Tablet(s) SL as needed No Start Date 12/18/2018 Inactive levofloxacin 500 mg tablet RxNorm: 621498 1 Tablet(s) PO QD No Star t Date 08/06/2018 Inactive ferrous sulfate 325 mg (65 mg iron) tablet RxNorm: 687418 1 Tab let(s) PO QHS No Start Date 04/16/2017 Inactive fluorouracil 5 % topical cream RxNorm: 723650 1 TOP No Start James e 08/06/2018 Inactive Vitamin D3 1,000 unit capsule RxNorm: 957349 1 Capsule(s) PO QD No Start Date 02/03/2018 Inactive Hydrocodone-Acetaminophen 7.5 mg-750 mg Tab RxNorm: 592819 1 Ta blet(s) PO PRN No Start Date 08/09/2014 Inactive pantoprazole 40 mg tablet,delayed release RxNorm: 201691 1 Tabl et(s) PO QD No Start Date 01/22/2018 Inactive omeprazole 20 mg Cap, Delayed Release RxNorm: 567165 2 Capsule( s) PO QD No Start Date 09/12/2010 Inactive DuoNeb 0.5 mg-3 mg(2.5 mg base)/3 mL solution for nebulizati on RxNorm: 9223329 INH Q4H as needed No Start Date 10/22/2018 Inactive Lyrica 75 mg capsule RxNorm: 781821 2 Capsule(s) PO QHS No Start Da te 03/09/2019 Inactive isosorbide mononitrate ER 30 mg tablet,extended release 24 h r RxNorm: 336800 1 Tablet(s) PO QD No Start Date 12/08/2018 Inactive Tradjenta 5 mg tablet RxNorm: 1964213 1 Tablet(s) PO QD No Start Da te 08/09/2016 Inactive Tudorza Pressair 400 mcg/actuation breath activated RxNorm: 9701795 1 Puff(s) INH BID No Start Date 06/17/2017 Inactive Lantus Solostar 100 unit/mL (3 mL) Sub-Q Insulin Pen RxNorm: 876396 30 Unit(s) SQ QD No Start Date 06/18/2011 Inactive Requip 4 mg tablet RxNorm: 366949 1 Tablet(s) PO BID No Start Date Inactive Symbicort 160 mcg-4.5 mcg/actuation HFA aerosol inhaler RxNo rm: 5255901 2 Puff(s) INH BID No Start Date 07/11/2018 Inactive atorvastatin 40 mg tablet RxNorm: 270038 1 Tablet(s) PO QD No Start Date 12/18/2018 Inactive tramadol 50 mg tablet RxNorm: 801226 1 Tablet(s) PO TID as needed for pain (take alone with two extra strength tylenol) No Start Date 01/16/2019 Inactive Symbicort 160 mcg-4.5 mcg/actuation HFA aerosol inhaler RxNo rm: 9741099 2 Puff(s) INH BID No Start Date 08/12/2013 Inactive Vitamin D3 5,000 unit tablet RxNorm: 156180 1 Tablet(s) PO QD No St art Date 05/08/2019 Inactive albuterol sulfate 2.5 mg/3 mL (0.083 %) Neb Solution RxNorm: 910546 1 Unit Dose INH Q4H prn wheezing or shortness of breath No Start Date 01/29/2013 Inac tive Ranexa 500 mg tablet,extended release RxNorm: 148093 1 Tablet(s ) PO BID No Start Date 02/03/2018 Inactive Advair Diskus 500 mcg-50 mcg/dose powder for inhalation RxNo rm: [id number] 1 Puff(s) INH BID No Start Date 08/09/2016 Inactive clopidogrel 75 mg tablet RxNorm: 470652 1 Tablet(s) PO QD No Start Date 05/01/2018 Inactive metformin 1,000 mg Tab RxNorm: 673063 1 Tablet(s) PO BID No Start D ate 08/12/2013 Inactive Silenor 3 mg tablet RxNorm: 886534 1 Tablet(s) PO QHS No Start Date 0 04/04/2017 Inactive Medrol (Gui) 4 mg tablets in a dose pack RxNorm: 634223 Tablet(s) PO as directed No Start Date 01/19/2013 Inactive Requip 4 mg tablet RxNorm: 427262 1 Tablet(s) PO BID No Start Date Inactive clopidogrel 75 mg tablet RxNorm: 538505 1 Tablet(s) PO QD No Start Date 02/03/2018 Inactive Tradjenta 5 mg tablet RxNorm: 7328682 1 Tablet(s) PO QD No Start Da te 02/03/2018 Inactive ProAir HFA 90 mcg/Actuation Aerosol Inhaler RxNorm: 471106 2 Pu ff(s) INH PRN No Start Date 07/09/2012 Inactive Tessalon Perles 100 mg capsule RxNorm: 884132 1 Capsule (s) PO TID as needed for cough No Start Date 08/30/2014 Inactive ferrous sulfate 325 mg (65 mg iron) tablet RxNorm: 141298 1 Tab let(s) PO QD No Start Date 05/08/2019 Inactive pioglitazone 15 mg tablet RxNorm: 537374 1 Tablet(s) PO QD No Start Date 09/20/2014 Inactive Lexapro Oral RxNorm: Oral No Start Date 12/13/2009 Inactive Breo Ellipta 100 mcg-25 mcg/dose powder for inhalation RxNor m: 8860478 1 Puff(s) INH BID No Start Date 05/31/2015 Inactive Tylenol Extra Strength 500 mg tablet RxNorm: 428176 2 T ablet(s) PO QHS along with ropironole No Start Date 12/18/2018 Inactive tramadol 50 mg tablet RxNorm: 368077 1 Tablet(s) PO QID as need ed for pain No Start Date 12/24/2018 Inactive cyclobenzaprine 10 mg Tab RxNorm: 353011 Oral No Start Date 12/22 Inactive Levemir FlexTouch 100 unit/mL (3 mL) subcutaneous insulin pe n RxNorm: 924161 10 Unit(s) SQ QD No Start Date 03/08/2016 Inactive amlodipine 5 mg tablet RxNorm: 995195 1 Tablet(s) PO QD No Start Da te 08/09/2016 Inactive Novolog 100 unit/mL subcutaneous solution RxNorm: 490002 10 Uni t(s) SQ AC No Start Date 08/12/2017 Inactive Levemir FlexTouch 100 unit/mL (3 mL) subcutaneous insulin pe n RxNorm: 707554 25 Unit(s) SQ QPM No Start Date 08/06/2018 Inactive Farxiga 5 mg tablet RxNorm: 8007550 1 Tablet(s) PO QD No Start Date 0 10/05/2014 Inactive DuoNeb 0.5 mg-3 mg(2.5 mg base)/3 mL solution for nebulizati on RxNorm: 5509404 inhalation No Start Date 09/23/2014 Inactive Doxycycline 100 mg Cap RxNorm: 439027 1 Capsule(s) PO BID No Start Date 12/18/2010 Inactive Vitamin B12 1000mcg Tablet RxNorm: 1 Tablet(s) PO QD No Start Date 02/03/2018 Inactive Hydrocodone-Acetaminophen 7.5 mg-750 mg Tab RxNorm: 584196 1 Ta blet(s) PO Q6-8H No Start Date 12/22/2009 Inactive Xigduo XR 5 mg-1,000 mg tablet,extended release RxNorm: 1593 833 1 Tablet(s) PO QD No Start Date 05/31/2015 Inactive cyanocobalamin (vit B-12) 1,000 mcg/mL injection solution Rx Norm: 801579 1 injection weekly for 4 weeks 1 Milliliter(s) Inj No Start Date 05/08/2019 Inactive AndroGel 1.25 g/Actuation (1%) Transdermal Gel Pump RxNorm: 9667550 TD Apply 4pumps daily No Start Date 08/21/2011 Inactive Actoplus MET 15 mg-850 mg Tab RxNorm: 382890 1 Tablet(s) PO BID No Start Date 12/18/2010 Inactive Amaryl 2 mg tablet RxNorm: 161528 1 Tablet(s) PO BID No Start Date Inactive Levemir FlexTouch 100 unit/mL (3 mL) subcutaneous insulin pe n RxNorm: 680826 20 Unit(s) SQ QD No Start Date 06/12/2016 Inactive Symbicort 160 mcg-4.5 mcg/actuation HFA aerosol inhaler RxNo rm: 7551721 2 Puff(s) INH BID No Start Date 02/03/2018 Inactive Symbicort 160 mcg-4.5 mcg/Actuation Inhalation HFA Aer osol Inhaler RxNorm: 6013985 2 INH BID No Start Date 12/18/2010 Inactive Farxiga 5 mg tablet RxNorm: 2224606 1 Tablet(s) PO QD No Start Date 0 03/01/2015 Inactive magnesium oxide 400 mg (241.3 mg magnesium) tablet RxNorm: 1 77209 1 Tablet(s) PO QHS No Start Date 05/08/2019 Inactive Tradjenta 5 mg tablet RxNorm: 2599072 2 Tablet(s) PO QD No Start Da te 07/21/2015 Inactive Levemir FlexTouch U-100 Insulin 100 unit/mL (3 mL) sub cutaneous pen RxNorm: 783912 40 Unit(s) SQ QD No Start Date 08/06/2018 Inactive Sinemet CR 50 mg-200 mg tablet,extended release RxNorm: 8343 41 1 Tablet(s) PO QHS No Start Date 09/24/2017 Inactive metoprolol tartrate 25 mg tablet RxNorm: 622990 1/2 Tablet(s) P O BID No Start Date 02/03/2018 Inactive Requip 4 mg tablet RxNorm: 018264 1 Tablet(s) PO QHS No Start Date Inactive Ventolin HFA 90 mcg/actuation aerosol inhaler RxNorm: 543971 2 Puff(s) INH Q4H as needed No Start Date 04/22/2018 Inactive B12 5,000 mcg-100 mcg sublingual lozenge RxNorm: 170430 IM as d irected No Start Date 05/08/2019 Inactive ropinirole 1 mg tablet RxNorm: 794945 1 Tablet(s) PO QHS No Start D ate 08/06/2018 Inactive Percocet 5 mg-325 mg tablet RxNorm: 3298338 1 Tablet(s) PO Q4H as needed for pain (Dr Rizzo) No Start Date 10/22/2018 Inactive hydrocodone 5 mg-acetaminophen 325 mg tablet RxNorm: 695176 1 Tablet(s) PO TID as needed for pain for severe pain No Start Date 04/16/2014 Inactive scopolamine 1.5 mg 72 hr Transderm Patch RxNorm: 593826 Application TD Q72H for dizziness No Start Date 08/12/2013 Inactive ipratropium-albuterol 0.5 mg-3 mg(2.5 mg base)/3 mL ne bulization soln RxNorm: 5512737 1 Unit Dose INH Q4H No Start Date 01/16/2019 Inactive Medication Administered No Medication Administered data Immunizations Vaccine Codes Date Status Influenza CVX: 135 08/07/2019 Complete Pneumococcal CVX: 33 07/24/2017 Complete Influenza CVX: 135 06/13/2016 Complete Pneumococcal CVX: 133 06/13/2016 Complete Influenza CVX: 141 07/10/2012 Pneumovax Unknown 07/10/2012 Results Observation Observation Code Item Item Code Result Date S vice Location COMPLETE BLOOD COUNT [id number] WBC 5.5 10e9/L 06/17/20 19 Unknown COMPLETE BLOOD COUNT [id number] RBC 3.92 10e12/L 2018 Unknown COMPLETE BLOOD COUNT [id number] HEMOGLOBIN 10.9 g/dL 06/17/20 19 Unknown COMPLETE BLOOD COUNT 3827916 HEMATOCRIT 34.8 % 06/17/20 19 Unknown COMPLETE BLOOD COUNT 2560618 MCV 88.8 fL 9 Unknown COMPLETE BLOOD COUNT 3378441 MCH 27.8 pg 9 Unknown COMPLETE BLOOD COUNT 6123518 MCHC 31.3 g/dL 9 Unknown COMPLETE BLOOD COUNT 3642771 PLATELET COUNT 239 10e9/L Unknown COMPLETE BLOOD COUNT 2097304 Mean Plt Volume 10.0 fL Unknown COMPLETE BLOOD COUNT 4865730 Neut Auto 68.0 % 9 Unknown COMPLETE BLOOD COUNT 4993775 Lymph Auto 14.8 % 06/17/20 19 Unknown COMPLETE BLOOD COUNT 2333355 [place] Auto 13.1 % 9 Unknown COMPLETE BLOOD COUNT 7459331 RDW 14.7 % 9 Unknown COMPLETE BLOOD COUNT 7216619 Eos Auto 3.6 % 9 Unknown COMPLETE BLOOD COUNT 6827727 Baso Auto 0.5 % 9 Unknown COMPLETE BLOOD COUNT 3754142 Neutrophil Abs 3.74 10e9/L Unknown COMPLETE BLOOD COUNT 4608995 Lymphocyte Abs 0.81 10e9/L Unknown COMPLETE BLOOD COUNT 0365028 Monocyte Abs 0.72 10e9/L 05/26 Unknown COMPLETE BLOOD COUNT 7564474 Eosinophil Abs 0.20 10e9/L Unknown COMPLETE BLOOD COUNT 5214392 RDW-SD 46.4 fL 9 Unknown COMPLETE BLOOD COUNT 6730766 Basophil Abs 0.03 10e9/L 05/26 Unknown IRON 20445 Iron 36 ug/dL 06/17/2019 Unknown VITAMIN B 12 50226 VITAMIN B12 540 pg/mL 06/17/2019 Unkn own GFR CALC 0283095 GFR Non Afr Amr 59 mL/min 06/17/2019 Unk nown GFR CALC 9778402 GFR Afr Amr >60 mL/min 06/17/2019 Unknow n ERYTHROCYTE SEDIMENTATION RATE 61532 Sed Rate 34 mm/hr 06/17/2019 Unknown THYROID STIMULATING HORMONE 72021 TSH 2.217 uIU/mL 06/17/2019 Unknown COMPREHENSIVE METABOLIC 62012 AST 12 U/L 2018 Unknown COMPREHENSIVE METABOLIC 64523 ALT 11 U/L 2018 Unknown COMPREHENSIVE METABOLIC 18950 BUN 17 mg/dL 2018 Unknown COMPREHENSIVE METABOLIC 27022 ALBUMIN 3.9 g/dL 2018 Unknown COMPREHENSIVE METABOLIC 38541 CHLORIDE 103 mmol/L 06/17 Unknown COMPREHENSIVE METABOLIC 50719 Bili Total 0.4 mg/dL 06/17 Unknown COMPREHENSIVE METABOLIC 05036 ALK PHOS 51 U/L 2018 Unknown COMPREHENSIVE METABOLIC 04903 SODIUM 140 mmol/L 06/17 Unknown COMPREHENSIVE METABOLIC 18222 CREATININE 1.20 mg/dL 05/26 Unknown COMPREHENSIVE METABOLIC 59179 CALCIUM 8.9 mg/dL 2018 Unknown COMPREHENSIVE METABOLIC 35996 POTASSIUM 4.5 mmol/L 06/17 Unknown COMPREHENSIVE METABOLIC 98449 Total Protein 6.1 g/dL Unknown COMPREHENSIVE METABOLIC 37254 Glucose 108 mg/dL 2018 Unknown COMPREHENSIVE METABOLIC 51190 Bicarbonate 27 mmol/L 05/26 Unknown COMPREHENSIVE METABOLIC 62505 AGAP 10 mmol/L 2018 Unknown FERRITIN 59828 FERRITIN 35.5 ng/mL 05/08/2019 Unknown VITAMIN D TOTAL (25 HYDROXY) 37895 Vitamin D 25 OH 26.0 ng/mL 05/08/2019 Unknown GLYCOSYLATED HEMOGLOBIN TEST 83504 Hgb A1c 34221-3 8.2 % 0 05/08/2019 Unknown MEAN GLUC 7517482 Calc Mean Gluc 189 mg/dL 05/08/2019 Unkn own GFR CALC 5816125 GFR Non Afr Amr >60 mL/min 05/08/2019 Un known GFR CALC 0326059 GFR Afr Amr >60 mL/min 05/08/2019 Unknow n VITAMIN B 12 29762 VITAMIN B12 197 pg/mL 05/08/2019 Unkn own IRON 91478 Iron 34 ug/dL 05/08/2019 Unknown COMPLETE BLOOD COUNT 6876679 WBC 6.9 10e9/L 05/08/20 19 Unknown COMPLETE BLOOD COUNT 2193927 RBC 3.95 10e12/L 2018 Unknown COMPLETE BLOOD COUNT 4581748 HEMOGLOBIN 11.1 g/dL 05/08/20 19 Unknown COMPLETE BLOOD COUNT 3773214 HEMATOCRIT 34.9 % 05/08/20 19 Unknown COMPLETE BLOOD COUNT 0883716 MCV 88.4 fL 9 Unknown COMPLETE BLOOD COUNT 8071098 MCH 28.1 pg 9 Unknown COMPLETE BLOOD COUNT 1480426 MCHC 31.8 g/dL 9 Unknown COMPLETE BLOOD COUNT 8222455 PLATELET COUNT 217 10e9/L Unknown COMPLETE BLOOD COUNT 6783189 Mean Plt Volume 9.6 fL Unknown COMPLETE BLOOD COUNT 9161998 Neut Auto 77.6 % 9 Unknown COMPLETE BLOOD COUNT 0289050 Lymph Auto 10.7 % 05/08/20 19 Unknown COMPLETE BLOOD COUNT 3573446 [place] Auto 10.4 % 9 Unknown COMPLETE BLOOD COUNT 4816477 RDW 14.7 % 9 Unknown COMPLETE BLOOD COUNT 1806774 Eos Auto 1.2 % 9 Unknown COMPLETE BLOOD COUNT 4965062 Baso Auto 0.1 % 9 Unknown COMPLETE BLOOD COUNT 8776494 Neutrophil Abs 5.35 10e9/L Unknown COMPLETE BLOOD COUNT 2892723 Lymphocyte Abs 0.74 10e9/L Unknown COMPLETE BLOOD COUNT 5652505 Monocyte Abs 0.72 10e9/L 04/24 Unknown COMPLETE BLOOD COUNT 4231982 Eosinophil Abs 0.08 10e9/L Unknown COMPLETE BLOOD COUNT 9458926 RDW-SD 46.6 fL 9 Unknown COMPLETE BLOOD COUNT 2885150 Basophil Abs 0.01 10e9/L 04/24 Unknown COMPREHENSIVE METABOLIC 76485 AST 13 U/L 2018 Unknown COMPREHENSIVE METABOLIC 83008 ALT 9 U/L 2018 Unknown COMPREHENSIVE METABOLIC 90715 BUN 18 mg/dL 2018 Unknown COMPREHENSIVE METABOLIC 18902 ALBUMIN 4.3 g/dL 2018 Unknown COMPREHENSIVE METABOLIC 90652 CHLORIDE 99 mmol/L 2018 Unknown COMPREHENSIVE METABOLIC 03682 Bili Total 0.4 mg/dL 05/08 Unknown COMPREHENSIVE METABOLIC 93941 ALK PHOS 48 U/L 2018 Unknown COMPREHENSIVE METABOLIC 10668 SODIUM 137 mmol/L 05/08 Unknown COMPREHENSIVE METABOLIC 83067 CREATININE 0.79 mg/dL 04/24 Unknown COMPREHENSIVE METABOLIC 12979 CALCIUM 9.5 mg/dL 2018 Unknown COMPREHENSIVE METABOLIC 07238 POTASSIUM 4.0 mmol/L 05/08 Unknown COMPREHENSIVE METABOLIC 69020 Total Protein 6.3 g/dL Unknown COMPREHENSIVE METABOLIC 45647 Glucose 232 mg/dL 2018 Unknown COMPREHENSIVE METABOLIC 59881 Bicarbonate 27 mmol/L 04/24 Unknown COMPREHENSIVE METABOLIC 68234 AGAP 11 mmol/L 2018 Unknown GLYCOSYLATED HEMOGLOBIN TEST 00367 Hgb A1c 78832-5 8.9 % 0 12/10/2018 Unknown MEAN GLUC 0546029 Calc Mean Gluc 209 mg/dL 12/10/2018 Unkn own LIPID GROUP 84701 Cholesterol 145 mg/dL 12/09/2018 Unkno wn LIPID GROUP 01324 Triglyceride 235 mg/dL 12/09/2018 Unkn own LIPID GROUP 54366 HDL CHOLESTEROL 40 mg/dL 12/09/2018 U nknown LIPID GROUP 68990 Chol/HDL Ratio 3.62 ratio 12/09/2018 U nknown LIPID GROUP 21762 NON-HDL Chol 105 mg/dL 12/09/2018 Unkn own LIPID GROUP 73007 LDL Cholesterol 58 mg/dL 12/09/2018 U nknown THYROID STIMULATING HORMONE 22448 TSH 1.071 uIU/mL 12/09/2018 Unknown GFR CALC 4487603 GFR Non Afr Amr >60 mL/min 12/09/2018 Un known GFR CALC 1683083 GFR Afr Amr >60 mL/min 12/09/2018 Unknow n COMPLETE BLOOD COUNT 3784242 WBC 7.6 10e9/L 12/10/19 19 Unknown COMPLETE BLOOD COUNT 5096504 RBC 3.97 10e12/L 2018 Unknown COMPLETE BLOOD COUNT 2833848 HEMOGLOBIN 11.4 g/dL 12/10/19 19 Unknown COMPLETE BLOOD COUNT 6674981 HEMATOCRIT 35.8 % 12/10/19 19 Unknown COMPLETE BLOOD COUNT 1716050 MCV 90.2 fL 9 Unknown COMPLETE BLOOD COUNT 1804629 MCH 28.7 pg 9 Unknown COMPLETE BLOOD COUNT 3059389 MCHC 31.8 g/dL 9 Unknown COMPLETE BLOOD COUNT 4699777 PLATELET COUNT 200 10e9/L Unknown COMPLETE BLOOD COUNT 7559958 Mean Plt Volume 10.1 fL Unknown COMPLETE BLOOD COUNT 6355447 Neut Auto 79.0 % 9 Unknown COMPLETE BLOOD COUNT 9840761 Lymph Auto 8.3 % 12/10/19 19 Unknown COMPLETE BLOOD COUNT 7069263 [place] Auto 10.8 % 9 Unknown COMPLETE BLOOD COUNT 1743905 RDW 14.6 % 9 Unknown COMPLETE BLOOD COUNT 2288195 Eos Auto 1.5 % 9 Unknown COMPLETE BLOOD COUNT 5027955 Baso Auto 0.4 % 9 Unknown COMPLETE BLOOD COUNT 8526953 Neutrophil Abs 6.00 10e9/L Unknown COMPLETE BLOOD COUNT 7573611 Lymphocyte Abs 0.63 10e9/L Unknown COMPLETE BLOOD COUNT 5327939 Monocyte Abs 0.82 10e9/L 11/22 Unknown COMPLETE BLOOD COUNT 5852039 Eosinophil Abs 0.11 10e9/L Unknown COMPLETE BLOOD COUNT 3636415 RDW-SD 46.9 fL 9 Unknown COMPLETE BLOOD COUNT 0131744 Basophil Abs 0.03 10e9/L 11/22 Unknown COMPREHENSIVE METABOLIC 91965 AST 11 U/L 2018 Unknown COMPREHENSIVE METABOLIC 63449 ALT 11 U/L 2018 Unknown COMPREHENSIVE METABOLIC 73933 BUN 21 mg/dL 2018 Unknown COMPREHENSIVE METABOLIC 83976 ALBUMIN 4.7 g/dL 2018 Unknown COMPREHENSIVE METABOLIC 21726 CHLORIDE 99 mmol/L 2018 Unknown COMPREHENSIVE METABOLIC 25717 Bili Total 0.4 mg/dL 12/09 Unknown COMPREHENSIVE METABOLIC 89706 ALK PHOS 73 U/L 2018 Unknown COMPREHENSIVE METABOLIC 03405 SODIUM 137 mmol/L 12/09 Unknown COMPREHENSIVE METABOLIC 19484 CREATININE 1.12 mg/dL 11/22 Unknown COMPREHENSIVE METABOLIC 64815 CALCIUM 9.4 mg/dL 2018 Unknown COMPREHENSIVE METABOLIC 55668 POTASSIUM 4.2 mmol/L 12/09 Unknown COMPREHENSIVE METABOLIC 97606 Total Protein 6.8 g/dL Unknown COMPREHENSIVE METABOLIC 59276 Glucose 194 mg/dL 2018 Unknown COMPREHENSIVE METABOLIC 05444 Bicarbonate 30 mmol/L 11/22 Unknown COMPREHENSIVE METABOLIC 83011 AGAP 8 mmol/L 2018 Unknown FREE T4 61200 T4 Free 0.86 ng/dL 12/09/2018 Unknown COMPLETE BLOOD COUNT 4923147 WBC 6.8 10e9/L 04/17/20 17 Unknown COMPLETE BLOOD COUNT 4222641 RBC 3.86 10e12/L 2016 Unknown COMPLETE BLOOD COUNT 0789387 HEMOGLOBIN 9.8 g/dL 04/17/20 17 Unknown COMPLETE BLOOD COUNT 1756659 HEMATOCRIT 31.1 % 04/17/20 17 Unknown COMPLETE BLOOD COUNT 0924858 MCV 80.6 fL 7 Unknown COMPLETE BLOOD COUNT 5844545 MCH 25.4 pg 7 Unknown COMPLETE BLOOD COUNT 3523040 MCHC 31.5 g/dL 7 Unknown COMPLETE BLOOD COUNT 4693255 PLATELET COUNT 247 10e9/L Unknown COMPLETE BLOOD COUNT 3033536 Mean Plt Volume 9.7 fL Unknown COMPLETE BLOOD COUNT 0580021 Neut Auto 74.1 % 7 Unknown COMPLETE BLOOD COUNT 7278656 Lymph Auto 12.0 % 04/17/20 17 Unknown COMPLETE BLOOD COUNT 0881786 [place] Auto 10.8 % 7 Unknown COMPLETE BLOOD COUNT 7292001 RDW 15.9 % 7 Unknown COMPLETE BLOOD COUNT 2050795 Eos Auto 2.5 % 7 Unknown COMPLETE BLOOD COUNT 1617074 Baso Auto 0.6 % 7 Unknown COMPLETE BLOOD COUNT 2352404 Neutrophil Abs 5.04 10e9/L Unknown COMPLETE BLOOD COUNT 3036194 Lymphocyte Abs 0.82 10e9/L Unknown COMPLETE BLOOD COUNT 7795789 Monocyte Abs 0.73 10e9/L 03/25 Unknown COMPLETE BLOOD COUNT 7801286 Eosinophil Abs 0.17 10e9/L Unknown COMPLETE BLOOD COUNT 4198964 RDW-SD 44.4 fL 7 Unknown COMPLETE BLOOD COUNT 7155534 Basophil Abs 0.04 10e9/L 03/25 Unknown MEAN GLUC 7204029 Calc Mean Gluc 223 mg/dL 04/17/2017 Unkn own GFR CALC 9882214 GFR Non Afr Amr >60 mL/min 04/17/2017 Un known GFR CALC 0344928 GFR Afr Amr >60 mL/min 04/17/2017 Unknow n GLYCOSYLATED HEMOGLOBIN TEST 59282 Hgb A1c 76088-3 9.4 % 0 04/17/2017 Unknown IRON 85378 Iron 37 ug/dL 04/17/2017 Unknown VITAMIN B 12 08232 VITAMIN B12 280 pg/mL 04/17/2017 Unkn own THYROID STIMULATING HORMONE 48916 TSH 2.481 uIU/mL 04/17/2017 Unknown COMPREHENSIVE METABOLIC 87732 AST 13 U/L 2016 Unknown COMPREHENSIVE METABOLIC 46945 ALT 12 U/L 2016 Unknown COMPREHENSIVE METABOLIC 97725 BUN 18 mg/dL 2016 Unknown COMPREHENSIVE METABOLIC 55873 ALBUMIN 4.7 g/dL 2016 Unknown COMPREHENSIVE METABOLIC 87083 CHLORIDE 103 mmol/L 04/17 Unknown COMPREHENSIVE METABOLIC 56970 Bili Total 0.4 mg/dL 04/17 Unknown COMPREHENSIVE METABOLIC 07471 ALK PHOS 49 U/L 2016 Unknown COMPREHENSIVE METABOLIC 70508 SODIUM 140 mmol/L 04/17 Unknown COMPREHENSIVE METABOLIC 39486 CREATININE 1.14 mg/dL 03/25 Unknown COMPREHENSIVE METABOLIC 33192 CALCIUM 9.4 mg/dL 2016 Unknown COMPREHENSIVE METABOLIC 77496 POTASSIUM 4.4 mmol/L 04/17 Unknown COMPREHENSIVE METABOLIC 02749 Total Protein 6.7 g/dL Unknown COMPREHENSIVE METABOLIC 24582 Glucose 266 mg/dL 2016 Unknown COMPREHENSIVE METABOLIC 12865 Bicarbonate 25 mmol/L 03/25 Unknown COMPREHENSIVE METABOLIC 96160 AGAP 12 mmol/L 2016 Unknown FERRITIN 74653 FERRITIN 10.0 ng/mL 04/17/2017 Unknown COMPLETE BLOOD COUNT 2242989 WBC 6.8 10e9/L 12/22/19 17 Unknown COMPLETE BLOOD COUNT 4337209 RBC 3.70 10e12/L 2016 Unknown COMPLETE BLOOD COUNT 2980379 HEMOGLOBIN 8.0 g/dL 12/22/19 17 Unknown COMPLETE BLOOD COUNT 7421555 HEMATOCRIT 26.7 % 12/22/19 17 Unknown COMPLETE BLOOD COUNT 2661483 MCV 72.2 fL 7 Unknown COMPLETE BLOOD COUNT 6449692 MCH 21.6 pg 7 Unknown COMPLETE BLOOD COUNT 0791720 MCHC 30.0 g/dL 7 Unknown COMPLETE BLOOD COUNT 4628716 PLATELET COUNT 290 10e9/L Unknown COMPLETE BLOOD COUNT 9706566 Mean Plt Volume 9.3 fL Unknown COMPLETE BLOOD COUNT 9203529 Neut Auto 80.2 % 7 Unknown COMPLETE BLOOD COUNT 9539175 Lymph Auto 9.8 % 12/22/19 17 Unknown COMPLETE BLOOD COUNT 1593033 [place] Auto 8.1 % 7 Unknown COMPLETE BLOOD COUNT 7247349 RDW 17.4 % 7 Unknown COMPLETE BLOOD COUNT 7873881 Eos Auto 1.5 % 7 Unknown COMPLETE BLOOD COUNT 5660274 Baso Auto 0.4 % 7 Unknown COMPLETE BLOOD COUNT 0927448 Neutrophil Abs 5.45 10e9/L Unknown COMPLETE BLOOD COUNT 1700858 Lymphocyte Abs 0.67 10e9/L Unknown COMPLETE BLOOD COUNT 1771556 Monocyte Abs 0.55 10e9/L 11/24 Unknown COMPLETE BLOOD COUNT 2487737 Eosinophil Abs 0.10 10e9/L Unknown COMPLETE BLOOD COUNT 7906811 RDW-SD 44.1 fL 7 Unknown COMPLETE BLOOD COUNT 7606996 Basophil Abs 0.03 10e9/L 11/24 Unknown COMPLETE BLOOD COUNT 2538786 WBC 7.6 10e9/L 12/13/19 17 Unknown COMPLETE BLOOD COUNT 1674966 RBC 3.71 10e12/L 2016 Unknown COMPLETE BLOOD COUNT 4363270 HEMOGLOBIN 8.0 g/dL 12/13/19 17 Unknown COMPLETE BLOOD COUNT 2350083 HEMATOCRIT 27.3 % 12/13/19 17 Unknown COMPLETE BLOOD COUNT 4866992 MCV 73.6 fL 7 Unknown COMPLETE BLOOD COUNT 7560246 MCH 21.6 pg 7 Unknown COMPLETE BLOOD COUNT 4329255 MCHC 29.3 g/dL 7 Unknown COMPLETE BLOOD COUNT 9078108 PLATELET COUNT 330 10e9/L Unknown COMPLETE BLOOD COUNT 2374608 Mean Plt Volume 9.7 fL Unknown COMPLETE BLOOD COUNT 3690708 Neut Auto 73.2 % 7 Unknown COMPLETE BLOOD COUNT 3284454 Lymph Auto 14.5 % 12/13/19 17 Unknown COMPLETE BLOOD COUNT 0034447 [place] Auto 10.5 % 7 Unknown COMPLETE BLOOD COUNT 4741863 RDW 17.3 % 7 Unknown COMPLETE BLOOD COUNT 9461044 Eos Auto 1.3 % 7 Unknown COMPLETE BLOOD COUNT 3542224 Baso Auto 0.5 % 7 Unknown COMPLETE BLOOD COUNT 6521509 Neutrophil Abs 5.56 10e9/L Unknown COMPLETE BLOOD COUNT 0618517 Lymphocyte Abs 1.10 10e9/L Unknown COMPLETE BLOOD COUNT 4422815 Monocyte Abs 0.80 10e9/L 11/23 Unknown COMPLETE BLOOD COUNT 7879796 Eosinophil Abs 0.10 10e9/L Unknown COMPLETE BLOOD COUNT 7575657 RDW-SD 45.2 fL 7 Unknown COMPLETE BLOOD COUNT 6216076 Basophil Abs 0.04 10e9/L 11/23 Unknown IRON 90683 Iron 69 ug/dL 03/09/2016 Unknown VITAMIN B 12 04657 VITAMIN B12 311 pg/mL 03/09/2016 Unkn own MEAN GLUC 2290299 Mean Glucose 260 mg/dL 03/07/2016 Unknow n GLYCOSYLATED HEMOGLOBIN TEST 67054 Hgb A1c 04812-2 10.7 % 0 03/07/2016 Unknown COMPREHENSIVE METABOLIC 31515 AST 14 U/L 2015 Unknown COMPREHENSIVE METABOLIC 21744 ALT 21 U/L 2015 Unknown COMPREHENSIVE METABOLIC 45271 BUN 27 mg/dL 2015 Unknown COMPREHENSIVE METABOLIC 12499 ALBUMIN 4.5 g/dL 2015 Unknown COMPREHENSIVE METABOLIC 50292 CHLORIDE 101 mmol/L 03/06 Unknown COMPREHENSIVE METABOLIC 86522 Bili Total 0.4 mg/dL 03/06 Unknown COMPREHENSIVE METABOLIC 32476 ALK PHOS 49 U/L 2015 Unknown COMPREHENSIVE METABOLIC 52540 SODIUM 136 mmol/L 03/06 Unknown COMPREHENSIVE METABOLIC 70445 CREATININE 1.16 mg/dL 02/22 Unknown COMPREHENSIVE METABOLIC 99944 CALCIUM 9.9 mg/dL 2015 Unknown COMPREHENSIVE METABOLIC 73185 POTASSIUM 4.5 mmol/L 03/06 Unknown COMPREHENSIVE METABOLIC 33537 Total Protein 6.7 g/dL Unknown COMPREHENSIVE METABOLIC 15958 Glucose 245 mg/dL 2015 Unknown COMPREHENSIVE METABOLIC 37924 Bicarbonate 24 mmol/L 02/22 Unknown COMPREHENSIVE METABOLIC 34171 AGAP 11 mmol/L 2015 Unknown THYROID STIMULATING HORMONE 36572 TSH 0.775 uIU/mL 03/06/2016 Unknown TESTOSTERONE TOTAL 78163 Testos Total 96 ng/dL 03/06/20 16 Unknown LIPID GROUP 87864 Cholesterol 146 mg/dL 03/06/2016 Unkno wn LIPID GROUP 45802 Triglyceride 249 mg/dL 03/06/2016 Unkn own LIPID GROUP 62386 HDL CHOLESTEROL 46 mg/dL 03/06/2016 U nknown LIPID GROUP 57404 Chol/HDL Ratio 3.17 ratio 03/06/2016 U nknown LIPID GROUP 51675 NON-HDL Chol 100 mg/dL 03/06/2016 Unkn own LIPID GROUP 30700 LDL Cholesterol 50 mg/dL 03/06/2016 U nknown COMPLETE BLOOD COUNT 2887036 WBC 11.2 10e9/L 016 Unknown COMPLETE BLOOD COUNT 3170900 RBC 3.94 10e12/L 2015 Unknown COMPLETE BLOOD COUNT 0095396 HEMOGLOBIN 11.4 g/dL 03/06/20 16 Unknown COMPLETE BLOOD COUNT 4872159 HEMATOCRIT 33.7 % 03/06/20 16 Unknown COMPLETE BLOOD COUNT 9248326 MCV 85.5 fL 6 Unknown COMPLETE BLOOD COUNT 6694043 MCH 28.9 pg 6 Unknown COMPLETE BLOOD COUNT 8876051 MCHC 33.8 g/dL 6 Unknown COMPLETE BLOOD COUNT 6274396 PLATELET COUNT 204 10e9/L Unknown COMPLETE BLOOD COUNT 7137469 Mean Plt Volume 10.1 fL Unknown COMPLETE BLOOD COUNT 7589497 Neut Auto 85.9 % 6 Unknown COMPLETE BLOOD COUNT 1391403 Lymph Auto 6.8 % 03/06/20 16 Unknown COMPLETE BLOOD COUNT 1680240 [place] Auto 7.0 % 6 Unknown COMPLETE BLOOD COUNT 9900876 RDW 13.7 % 6 Unknown COMPLETE BLOOD COUNT 9635200 Eos Auto 0.1 % 6 Unknown COMPLETE BLOOD COUNT 5411806 Baso Auto 0.2 % 6 Unknown COMPLETE BLOOD COUNT 5925874 Neutrophil Abs 9.62 10e9/L Unknown COMPLETE BLOOD COUNT 3772254 Lymphoctye Abs 0.76 10e9/L Unknown COMPLETE BLOOD COUNT 3658039 Monocyte Abs 0.78 10e9/L 02/22 Unknown COMPLETE BLOOD COUNT 2128732 Eosinophil Abs 0.01 10e9/L Unknown COMPLETE BLOOD COUNT 1367365 RDW-SD 41.9 fL 6 Unknown COMPLETE BLOOD COUNT 9271686 Basophil Abs 0.02 10e9/L 02/22 Unknown FREE T4 26358 T4 Free 0.89 ng/dL 03/06/2016 Unknown GFR CALC 4642288 GFR Non Afr Amr >60 mL/min 03/06/2016 Un known GFR CALC 4439573 GFR Afr Amr >60 mL/min 03/06/2016 Unknow n PSA EQUIMOLAR JONATAN 13413 PSA Total 0.78 ng/mL 6 Unknown FREE T4 32592 FREE T4 0.90 NG/DL 07/01/2015 Unknown LIPID GROUP 49713 HDL TEST 44 MG/DL 07/01/2015 Unknown LIPID GROUP 70254 TRIG 303 MG/DL 07/01/2015 Unknown LIPID GROUP 12294 TEST LDL 56 MG/DL 07/01/2015 Unknown LIPID GROUP 60625 CHOL 161 MG/DL 07/01/2015 Unknown LIPID GROUP 98215 RCHOL/HDL 3.66 RATIO 07/01/2015 Unknow n LIPID GROUP 08171 NON-HDL CH 117 MG/DL 07/01/2015 Unknow n THYROID STIMULATING HORMONE 28335 TSH 1.783 uIU/ML 07/01/2015 Unknown COMPLETE BLOOD COUNT 1810612 WBC 6.6 10e9/L 07/01/20 15 Unknown COMPLETE BLOOD COUNT 0142513 RBC 4.18 10e12/L 2014 Unknown COMPLETE BLOOD COUNT 0118836 HGB 12.2 g/dL 5 Unknown COMPLETE BLOOD COUNT 5679145 HCT DET 37.0 % 5 Unknown COMPLETE BLOOD COUNT 9662078 MCV 88.5 fL 5 Unknown COMPLETE BLOOD COUNT 3949394 MCH 29.2 pg 5 Unknown COMPLETE BLOOD COUNT 0553792 MCHC 33.0 g/dL 5 Unknown COMPLETE BLOOD COUNT 5066057 PLT 224 10e9/L 07/01/20 15 Unknown COMPLETE BLOOD COUNT 7469935 MPV 10.4 fL 5 Unknown COMPLETE BLOOD COUNT 1693700 SUSIE % 72.6 % 5 Unknown COMPLETE BLOOD COUNT 8046281 LY % 14.1 % 5 Unknown COMPLETE BLOOD COUNT 6945082 MON % 10.2 % 5 Unknown COMPLETE BLOOD COUNT 3554502 EOS % 2.6 % 5 Unknown COMPLETE BLOOD COUNT 5314546 BASO % 0.5 % 5 Unknown COMPLETE BLOOD COUNT 2276350 RDW 14.1 % 5 Unknown COMPLETE BLOOD COUNT 9033310 ABS SUSIE 4.79 10e9/L 015 Unknown COMPLETE BLOOD COUNT 9517777 ABS LYMPH 0.93 10e9/L 015 Unknown COMPLETE BLOOD COUNT 2522919 ABS MONO 0.67 10e9/L 015 Unknown COMPLETE BLOOD COUNT 0169336 ABS EOS 0.17 10e9/L 015 Unknown COMPLETE BLOOD COUNT 8123600 ABS BASO 0.03 10e9/L 015 Unknown COMPLETE BLOOD COUNT 7592581 RDW-SD 43.9 fL 5 Unknown PSA EQUIMOLAR JONATAN 43366 PSA EQ 0.73 NG/ML 5 Unknown COMPREHENSIVE METABOLIC 32476 AST 24 U/L 2014 Unknown COMPREHENSIVE METABOLIC 93942 ALT 26 IU/L 2014 Unknown COMPREHENSIVE METABOLIC 55255 BUN 26 MG/DL 2014 Unknown COMPREHENSIVE METABOLIC 82610 ALBUMIN 4.6 GM/DL 2014 Unknown COMPREHENSIVE METABOLIC 00539 CHLORIDE 102 MMOL/L 06/01 Unknown COMPREHENSIVE METABOLIC 23117 BILI TOT 0.5 MG/DL 2014 Unknown COMPREHENSIVE METABOLIC 17162 ALK PHOS 56 U/L 2014 Unknown COMPREHENSIVE METABOLIC 14447 SODIUM 136 MMOL/L 06/01 Unknown COMPREHENSIVE METABOLIC 61985 CREATININE 1.16 MG/DL 04/2015 Unknown COMPREHENSIVE METABOLIC 42902 CALCIUM 9.8 MG/DL 2014 Unknown COMPREHENSIVE METABOLIC 52282 POTASSIUM 4.6 MMOL/L 06/01 Unknown COMPREHENSIVE METABOLIC 24632 PROT TOT 7.4 GM/DL 2014 Unknown COMPREHENSIVE METABOLIC 06523 Glucose 223 MG/DL 2014 Unknown COMPREHENSIVE METABOLIC 18660 BICARB 27 MMOL/L 2014 Unknown COMPREHENSIVE METABOLIC 38887 ANION GAP 7 MEQ/L 2014 Unknown GFR CALC [id number] GFR AA >60 ML/MIN 06/01/2015 Unknown GFR CALC [id number] GFR NON-AA >60 ML/MIN 06/01/2015 Unknown GLYCOSYLATED HEMOGLOBIN TEST 80654 A1C HPLC 62837-3 8.9 % 0 06/01/2015 Unknown GFR CALC [id number] GFR AA >60 ML/MIN 02/25/2015 Unknown GFR CALC [id number] GFR NON-AA >60 ML/MIN 02/25/2015 Unknown COMPREHENSIVE METABOLIC 40252 AST 24 U/L 2014 Unknown COMPREHENSIVE METABOLIC 32631 ALT 25 IU/L 2014 Unknown COMPREHENSIVE METABOLIC 09711 BUN 14 MG/DL 2014 Unknown COMPREHENSIVE METABOLIC 74461 ALBUMIN 4.5 GM/DL 2014 Unknown COMPREHENSIVE METABOLIC 70615 CHLORIDE 99 MMOL/L 2014 Unknown COMPREHENSIVE METABOLIC 74775 BILI TOT 0.5 MG/DL 2014 Unknown COMPREHENSIVE METABOLIC 10658 ALK PHOS 48 U/L 2014 Unknown COMPREHENSIVE METABOLIC 37567 SODIUM 136 MMOL/L 02/25 Unknown COMPREHENSIVE METABOLIC 00583 CREATININE 0.97 MG/DL 12/2014 Unknown COMPREHENSIVE METABOLIC 51405 CALCIUM 9.9 MG/DL 2014 Unknown COMPREHENSIVE METABOLIC 46672 POTASSIUM 4.4 MMOL/L 02/25 Unknown COMPREHENSIVE METABOLIC 26098 PROT TOT 7.1 GM/DL 2014 Unknown COMPREHENSIVE METABOLIC 01507 Glucose 171 MG/DL 2014 Unknown COMPREHENSIVE METABOLIC 76808 BICARB 25 MMOL/L 2014 Unknown COMPREHENSIVE METABOLIC 58478 ANION GAP 12 MEQ/L 2014 Unknown PROTEIN/CREAT URINE WITH RATIO 35865|60766 PROT R U 19 MG/D L 08/27/2014 Unknown PROTEIN/CREAT URINE WITH RATIO 00858|82402 CREAT R U 111 MG/ DL 08/27/2014 Unknown PROTEIN/CREAT URINE WITH RATIO 59364|49056 XRATIO P/C 171 MG /G 08/27/2014 Unknown MICROALBUMIN URINE RANDOM 75955 MICRL MG/L 34.7 MG/L 12/2013 Unknown MICROALBUMIN URINE RANDOM 56557 XM.ALB/CRE 32.7 MG/GCR 1 10/28/2013 Unknown MICROALBUMIN URINE RANDOM 14989 CREAT MG/D 106 MG/DL 12/2013 Unknown MICROALBUMIN URINE RANDOM 78348 CRE/100 1.06 G/L 12/2013 Unknown COMPLETE BLOOD COUNT [id number] WBC 7.1 10e9/L 08/05/20 14 Unknown COMPLETE BLOOD COUNT 1759442 RBC 4.35 10e12/L 2013 Unknown COMPLETE BLOOD COUNT 8753271 HGB 12.9 g/dL 4 Unknown COMPLETE BLOOD COUNT 8625611 HCT DET 39.4 % 4 Unknown COMPLETE BLOOD COUNT 8394881 MCV 90.6 fL 4 Unknown COMPLETE BLOOD COUNT 2552312 MCH 29.7 pg 4 Unknown COMPLETE BLOOD COUNT 3557602 MCHC 32.7 g/dL 4 Unknown COMPLETE BLOOD COUNT 8452518 PLT 240 10e9/L 08/05/20 14 Unknown COMPLETE BLOOD COUNT 3819720 MPV 10.3 fL 4 Unknown COMPLETE BLOOD COUNT 8741118 SUSIE % 70.0 % 4 Unknown COMPLETE BLOOD COUNT 0318783 LY % 16.4 % 4 Unknown COMPLETE BLOOD COUNT 7086034 MON % 9.2 % 4 Unknown COMPLETE BLOOD COUNT 6786403 EOS % 3.8 % 4 Unknown COMPLETE BLOOD COUNT 3271624 BASO % 0.6 % 4 Unknown COMPLETE BLOOD COUNT [id number] RDW 13.4 % 4 Unknown COMPLETE BLOOD COUNT [id number] ABS SUSIE 4.97 10e9/L 014 Unknown COMPLETE BLOOD COUNT 3659941 ABS LYMPH 1.16 10e9/L 014 Unknown COMPLETE BLOOD COUNT [id number] ABS MONO 0.65 10e9/L 014 Unknown COMPLETE BLOOD COUNT [id number] ABS EOS 0.27 10e9/L 014 Unknown COMPLETE BLOOD COUNT [id number] ABS BASO 0.04 10e9/L 014 Unknown COMPLETE BLOOD COUNT 8108020 RDW-SD 43.3 fL 4 Unknown FREE T4 51697 FREE T4 1.02 NG/DL 08/05/2014 Unknown GFR CALC 6602244 GFR AA >60 ML/MIN 08/05/2014 Unknown GFR CALC 2919238 GFR NON-AA >60 ML/MIN 08/05/2014 Unknown GLYCOSYLATED HEMOGLOBIN TEST 17441 A1C HPLC 60278-1 7.7 % 1 10/05/2013 Unknown COMPREHENSIVE METABOLIC 46330 AST 19 U/L 2013 Unknown COMPREHENSIVE METABOLIC 93837 ALT 21 IU/L 2013 Unknown COMPREHENSIVE METABOLIC 62604 BUN 25 MG/DL 2013 Unknown COMPREHENSIVE METABOLIC 54760 ALBUMIN 4.6 GM/DL 2013 Unknown COMPREHENSIVE METABOLIC 08795 CHLORIDE 103 MMOL/L 08/05 Unknown COMPREHENSIVE METABOLIC 69225 BILI TOT 0.4 MG/DL 2013 Unknown COMPREHENSIVE METABOLIC 49804 ALK PHOS 45 U/L 2013 Unknown COMPREHENSIVE METABOLIC 34700 SODIUM 138 MMOL/L 08/05 Unknown COMPREHENSIVE METABOLIC 18412 CREATININE 1.01 MG/DL 07/25 Unknown COMPREHENSIVE METABOLIC 15410 CALCIUM 9.8 MG/DL 2013 Unknown COMPREHENSIVE METABOLIC 64695 POTASSIUM 4.7 MMOL/L 08/05 Unknown COMPREHENSIVE METABOLIC 24420 PROT TOT 7.0 GM/DL 2013 Unknown COMPREHENSIVE METABOLIC 73859 Glucose 145 MG/DL 2013 Unknown COMPREHENSIVE METABOLIC 11222 BICARB 27 MMOL/L 2013 Unknown COMPREHENSIVE METABOLIC 64585 ANION GAP 8 MEQ/L 2013 Unknown THYROID STIMULATING HORMONE 27282 TSH 1.922 uIU/ML 08/05/2014 Unknown LIPID GROUP 13185 HDL TEST 47 MG/DL 08/05/2014 Unknown LIPID GROUP 88245 TRIG 224 MG/DL 08/05/2014 Unknown LIPID GROUP 24330 TEST LDL 125 MG/DL 08/05/2014 Unknown LIPID GROUP 43927 CHOL 217 MG/DL 08/05/2014 Unknown LIPID GROUP 23867 RCHOL/HDL 4.62 RATIO 08/05/2014 Unknow n LIPID GROUP 46236 NON-HDL CH 170 MG/DL 08/05/2014 Unknow n MYCOPLASMA ANTIBODY, IFA [id number] MYCO G IFA 1:256 03/24 Unknown MYCOPLASMA ANTIBODY, IFA [id number] MYCO M IFA <1:10 03/24 Unknown MYCOPLASMA ANTIBODY, IFA [id number] MYCO INTER SEE BELO 03/24 Unknown COMPLETE BLOOD COUNT 3525225 WBC 8.3 10e9/L 04/09/20 13 Unknown COMPLETE BLOOD COUNT [id number] RBC 4.61 10e12/L 2012 Unknown COMPLETE BLOOD COUNT 4653225 HGB 13.9 g/dL 3 Unknown COMPLETE BLOOD COUNT 8574162 HCT DET 41.2 % 3 Unknown COMPLETE BLOOD COUNT 8352880 MCV 89.4 fL 3 Unknown COMPLETE BLOOD COUNT 4463656 MCH 30.2 pg 3 Unknown COMPLETE BLOOD COUNT 3402928 MCHC 33.7 g/dL 3 Unknown COMPLETE BLOOD COUNT 6875275 PLT 249 10e9/L 04/09/20 13 Unknown COMPLETE BLOOD COUNT [id number] MPV 9.8 fL 3 Unknown COMPLETE BLOOD COUNT [id number] SUSIE % 65.9 % 3 Unknown COMPLETE BLOOD COUNT 6560345 LY % 19.8 % 3 Unknown COMPLETE BLOOD COUNT 2928962 MON % 10.8 % 3 Unknown COMPLETE BLOOD COUNT 1577422 EOS % 3.0 % 3 Unknown COMPLETE BLOOD COUNT 1222158 BASO % 0.5 % 3 Unknown COMPLETE BLOOD COUNT 5936000 RDW 14.0 % 3 Unknown COMPLETE BLOOD COUNT 0837913 ABS SUSIE 5.47 10e9/L 013 Unknown COMPLETE BLOOD COUNT 9854335 ABS LYMPH 1.64 10e9/L 013 Unknown COMPLETE BLOOD COUNT 9070875 ABS MONO 0.90 10e9/L 013 Unknown COMPLETE BLOOD COUNT 9791680 ABS EOS 0.25 10e9/L 013 Unknown COMPLETE BLOOD COUNT 0888262 ABS BASO 0.04 10e9/L 013 Unknown COMPLETE BLOOD COUNT [id number] RDW-SD 45.0 fL 3 Unknown URIC ACID 86166 URIC ACID 5.3 MG/DL 02/12/2013 Unknown FREE T4 69582 FREE T4 1.09 NG/DL 02/11/2013 Unknown COMPLETE BLOOD COUNT 6944493 WBC 6.3 10e9/L 02/12/20 13 Unknown COMPLETE BLOOD COUNT 9345198 RBC 4.29 10e12/L 2012 Unknown COMPLETE BLOOD COUNT 4936298 HGB 13.1 g/dL 3 Unknown COMPLETE BLOOD COUNT 2365231 HCT DET 39.7 % 3 Unknown COMPLETE BLOOD COUNT 7989920 MCV 92.5 fL 3 Unknown COMPLETE BLOOD COUNT 8018010 MCH 30.5 pg 3 Unknown COMPLETE BLOOD COUNT 6632441 MCHC 33.0 g/dL 3 Unknown COMPLETE BLOOD COUNT 5769076 PLT 247 10e9/L 02/12/20 13 Unknown COMPLETE BLOOD COUNT 6594313 MPV 10.0 fL 3 Unknown COMPLETE BLOOD COUNT 7941955 SUSIE % 73.4 % 3 Unknown COMPLETE BLOOD COUNT 7559724 LY % 13.5 % 3 Unknown COMPLETE BLOOD COUNT 6028728 MON % 9.4 % 3 Unknown COMPLETE BLOOD COUNT [id number] EOS % 2.9 % 3 Unknown COMPLETE BLOOD COUNT [id number] BASO % 0.8 % 3 Unknown COMPLETE BLOOD COUNT 0007177 RDW 13.8 % 3 Unknown COMPLETE BLOOD COUNT 2887748 ABS SUSIE 4.62 10e9/L 013 Unknown COMPLETE BLOOD COUNT [id number] ABS LYMPH 0.85 10e9/L 013 Unknown COMPLETE BLOOD COUNT 6023806 ABS MONO 0.59 10e9/L 013 Unknown COMPLETE BLOOD COUNT 1839334 ABS EOS 0.18 10e9/L 013 Unknown COMPLETE BLOOD COUNT 9166690 ABS BASO 0.05 10e9/L 013 Unknown COMPLETE BLOOD COUNT 7622647 RDW-SD 45.7 fL 3 Unknown HEMOGLOBIN A1C (GLYCOSYLATED) 6851412 A1C HPLC 50872-5 7.5 % 02/11/2013 Unknown THYROID STIMULATING HORMONE 15022 TSH 1.466 uIU/ML 02/11/2013 Unknown VITAMIN B 12 FOLIC ACID 69994|22694 VIT B 12 625 PG/ML 01/23 Unknown VITAMIN B 12 FOLIC ACID 43714|68931 FOLIC ACID 15.6 NG/ML Unknown COMPREHENSIVE METABOLIC 09441 AST 18 U/L 2012 Unknown COMPREHENSIVE METABOLIC 85851 ALT 21 IU/L 2012 Unknown COMPREHENSIVE METABOLIC 45067 BUN 25 MG/DL 2012 Unknown COMPREHENSIVE METABOLIC 56512 ALBUMIN 4.6 GM/DL 2012 Unknown COMPREHENSIVE METABOLIC 46337 CHLORIDE 103 MMOL/L 02/11 Unknown COMPREHENSIVE METABOLIC 71109 BILI TOT 0.3 MG/DL 2012 Unknown COMPREHENSIVE METABOLIC 97825 ALK PHOS 53 U/L 2012 Unknown COMPREHENSIVE METABOLIC 95623 SODIUM 136 MMOL/L 02/11 Unknown COMPREHENSIVE METABOLIC 66132 CREATININE 1.16 MG/DL 01/23 Unknown COMPREHENSIVE METABOLIC 45116 CALCIUM 10.0 MG/DL 02/11 Unknown COMPREHENSIVE METABOLIC 85564 POTASSIUM 4.9 MMOL/L 02/11 Unknown COMPREHENSIVE METABOLIC 72600 PROT TOT 7.0 GM/DL 2012 Unknown COMPREHENSIVE METABOLIC 70109 Glucose 192 MG/DL 2012 Unknown COMPREHENSIVE METABOLIC 99703 BICARB 26 MMOL/L 2012 Unknown COMPREHENSIVE METABOLIC 84427 ANION GAP 7 MEQ/L 2012 Unknown GFR CALC 9888906 GFR AA >60 ML/MIN 02/11/2013 Unknown GFR CALC 3702031 GFR NON-AA >60 ML/MIN 02/11/2013 Unknown C-REACTIVE PROTEIN (CRP) QUANT 64327 CRP 2.7 MG/DL 02/11/2013 Unknown GFR CALC 7975941 GFR AA >60 ML/MIN 09/19/2012 Unknown GFR CALC 5220202 GFR NON-AA >60 ML/MIN 09/19/2012 Unknown HEMOGLOBIN A1C (GLYCOSYLATED) 5176797 A1C HPLC 60685-0 7.2 % 09/19/2012 Unknown COMPREHENSIVE METABOLIC 02569 AST 13 U/L 2011 Unknown COMPREHENSIVE METABOLIC 04464 ALT 17 IU/L 2011 Unknown COMPREHENSIVE METABOLIC 27493 BUN 25 MG/DL 2011 Unknown COMPREHENSIVE METABOLIC 36977 ALBUMIN 4.5 GM/DL 2011 Unknown COMPREHENSIVE METABOLIC 22151 CHLORIDE 104 MMOL/L 09/19 Unknown COMPREHENSIVE METABOLIC 51597 BILI TOT 0.3 MG/DL 2011 Unknown COMPREHENSIVE METABOLIC 22901 ALK PHOS 43 U/L 2011 Unknown COMPREHENSIVE METABOLIC 31289 SODIUM 139 MMOL/L 09/19 Unknown COMPREHENSIVE METABOLIC 31028 CREATININE 1.10 MG/DL 08/25 Unknown COMPREHENSIVE METABOLIC 35949 CALCIUM 9.8 MG/DL 2011 Unknown COMPREHENSIVE METABOLIC 54462 POTASSIUM 4.8 MMOL/L 09/19 Unknown COMPREHENSIVE METABOLIC 95794 PROT TOT 6.5 GM/DL 2011 Unknown COMPREHENSIVE METABOLIC 80697 Glucose 148 MG/DL 2011 Unknown COMPREHENSIVE METABOLIC 15628 BICARB 25 MMOL/L 2011 Unknown COMPREHENSIVE METABOLIC 91224 ANION GAP 10 MEQ/L 2011 Unknown LIPID GROUP 86884 HDL TEST 44 MG/DL 09/19/2012 Unknown LIPID GROUP 14461 TRIG 318 MG/DL 09/19/2012 Unknown LIPID GROUP 27302 TEST LDL 100 MG/DL 09/19/2012 Unknown LIPID GROUP 55377 CHOL 208 MG/DL 09/19/2012 Unknown LIPID GROUP 10886 RCHOL/HDL 4.73 RATIO 09/19/2012 Unknow n FREE T4 24564 FREE T4 0.87 NG/DL 05/06/2012 Unknown GLYCOSYLATED HEMOGLOBIN TEST 06894 A1C HPLC 62559-9 6.4 % 0 05/06/2012 Unknown LIPID GROUP 86891 HDL TEST 44 MG/DL 05/06/2012 Unknown LIPID GROUP 16041 TRIG 177 MG/DL 05/06/2012 Unknown LIPID GROUP 08570 TEST LDL 113 MG/DL 05/06/2012 Unknown LIPID GROUP 28477 CHOL 192 MG/DL 05/06/2012 Unknown LIPID GROUP 31769 RCHOL/HDL 4.36 RATIO 05/06/2012 Unknow n THYROID STIMULATING HORMONE 80940 TSH 1.151 uIU/ML 05/06/2012 Unknown COMPLETE BLOOD COUNT 31772 WBC 7.8 10e9/L 05/06/20 12 Unknown COMPLETE BLOOD COUNT 85515 RBC 4.31 10e12/L 2011 Unknown COMPLETE BLOOD COUNT 47353 HGB 12.8 g/dL 2 Unknown COMPLETE BLOOD COUNT 16601 HCT DET 39.1 % 2 Unknown COMPLETE BLOOD COUNT 37124 MCV 90.7 fL 2 Unknown COMPLETE BLOOD COUNT 39427 MCH 29.7 pg 2 Unknown COMPLETE BLOOD COUNT 70501 MCHC 32.7 g/dL 2 Unknown COMPLETE BLOOD COUNT 25870 PLT 207 10e9/L 05/06/20 12 Unknown COMPLETE BLOOD COUNT 68460 MPV 10.2 fL 2 Unknown COMPLETE BLOOD COUNT 54888 SUSIE % 74.2 % 2 Unknown COMPLETE BLOOD COUNT 35332 LY % 12.8 % 2 Unknown COMPLETE BLOOD COUNT 40045 MON % 11.0 % 2 Unknown COMPLETE BLOOD COUNT 02171 EOS % 1.7 % 2 Unknown COMPLETE BLOOD COUNT 47772 BASO % 0.3 % 2 Unknown COMPLETE BLOOD COUNT 90466 RDW 13.7 % 2 Unknown COMPLETE BLOOD COUNT 05937 ABS SUSIE 5.79 10e9/L 012 Unknown COMPLETE BLOOD COUNT 94646 ABS LYMPH 1.00 10e9/L 012 Unknown COMPLETE BLOOD COUNT 75538 ABS MONO 0.86 10e9/L 012 Unknown COMPLETE BLOOD COUNT 20872 ABS EOS 0.13 10e9/L 012 Unknown COMPLETE BLOOD COUNT 48320 ABS BASO 0.02 10e9/L 012 Unknown COMPLETE BLOOD COUNT 01181 RDW-SD 44.4 fL 2 Unknown COMPREHENSIVE METABOLIC 73214 AST 13 U/L 2011 Unknown COMPREHENSIVE METABOLIC 22141 ALT 14 IU/L 2011 Unknown COMPREHENSIVE METABOLIC 83037 BUN 17 MG/DL 2011 Unknown COMPREHENSIVE METABOLIC 31094 ALBUMIN 4.5 GM/DL 2011 Unknown COMPREHENSIVE METABOLIC 94044 CHLORIDE 101 MMOL/L 05/06 Unknown COMPREHENSIVE METABOLIC 26862 BILI TOT 0.5 MG/DL 2011 Unknown COMPREHENSIVE METABOLIC 23291 ALK PHOS 42 U/L 2011 Unknown COMPREHENSIVE METABOLIC 35140 SODIUM 141 MMOL/L 05/06 Unknown COMPREHENSIVE METABOLIC 21393 CREATININE 1.02 MG/DL 04/24 Unknown COMPREHENSIVE METABOLIC 97521 CALCIUM 9.7 MG/DL 2011 Unknown COMPREHENSIVE METABOLIC 09711 POTASSIUM 4.6 MMOL/L 05/06 Unknown COMPREHENSIVE METABOLIC 14824 PROT TOT 6.5 GM/DL 2011 Unknown COMPREHENSIVE METABOLIC 10049 Glucose 139 MG/DL 2011 Unknown COMPREHENSIVE METABOLIC 95891 BICARB 29 MMOL/L 2011 Unknown COMPREHENSIVE METABOLIC 93832 ANION GAP 11 MEQ/L 2011 Unknown GFR CALC 4428246 GFR AA >60 ML/MIN 05/06/2012 Unknown GFR CALC 9305497 GFR NON-AA 54.0L ML/MIN 05/06/2012 Unkno wn GLYCOSYLATED HEMOGLOBIN TEST 92442 A1C HPLC 18280-6 6.6 % 1 09/30/2010 Unknown FREE T4 16553 FREE T4 1.00 NG/DL 07/26/2011 Unknown LIPID GROUP 36714 HDL TEST 40 MG/DL 07/26/2011 Unknown LIPID GROUP 99340 TRIG 136 MG/DL 07/26/2011 Unknown LIPID GROUP 54254 TEST LDL 126 MG/DL 07/26/2011 Unknown LIPID GROUP 98452 CHOL 193 MG/DL 07/26/2011 Unknown LIPID GROUP 52231 RCHOL/HDL 4.83 RATIO 07/26/2011 Unknow n COMPREHENSIVE METABOLIC 56291 AST 15 U/L 2010 Unknown COMPREHENSIVE METABOLIC 49633 ALT 13 IU/L 2010 Unknown COMPREHENSIVE METABOLIC 43498 BUN 17 MG/DL 2010 Unknown COMPREHENSIVE METABOLIC 80505 ALBUMIN 4.4 GM/DL 2010 Unknown COMPREHENSIVE METABOLIC 72274 CHLORIDE 102 MMOL/L 07/26 Unknown COMPREHENSIVE METABOLIC 95035 BILI TOT 0.5 MG/DL 2010 Unknown COMPREHENSIVE METABOLIC 85223 ALK PHOS 54 U/L 2010 Unknown COMPREHENSIVE METABOLIC 56739 SODIUM 138 MMOL/L 07/26 Unknown COMPREHENSIVE METABOLIC 98266 CREATININE 0.95 MG/DL 10/2010 Unknown COMPREHENSIVE METABOLIC 43207 CALCIUM 9.3 MG/DL 2010 Unknown COMPREHENSIVE METABOLIC 22990 POTASSIUM 4.3 MMOL/L 07/26 Unknown COMPREHENSIVE METABOLIC 17299 PROT TOT 6.7 GM/DL 2010 Unknown COMPREHENSIVE METABOLIC 35087 Glucose 116 MG/DL 2010 Unknown COMPREHENSIVE METABOLIC 29406 BICARB 28 MMOL/L 2010 Unknown COMPREHENSIVE METABOLIC 45069 ANION GAP 8 MEQ/L 2010 Unknown PSA EQUIMOLAR JONATAN 25414 PSA EQ 1.01 NG/ML 1 Unknown COMPLETE BLOOD COUNT 87191 WBC 6.4 10e9/L 07/26/20 11 Unknown COMPLETE BLOOD COUNT 06271 RBC 4.43 10e12/L 2010 Unknown COMPLETE BLOOD COUNT 10357 HGB 13.2 g/dL 1 Unknown COMPLETE BLOOD COUNT 03431 HCT DET 39.3 % 1 Unknown COMPLETE BLOOD COUNT 43216 MCV 88.7 fL 1 Unknown COMPLETE BLOOD COUNT 38438 MCH 29.8 pg 1 Unknown COMPLETE BLOOD COUNT 68539 MCHC 33.6 g/dL 1 Unknown COMPLETE BLOOD COUNT 57659 PLT 226 10e9/L 07/26/20 11 Unknown COMPLETE BLOOD COUNT 04741 MPV 9.9 fL 1 Unknown COMPLETE BLOOD COUNT 45045 SUSIE % 65.4 % 1 Unknown COMPLETE BLOOD COUNT 72856 LY % 19.7 % 1 Unknown COMPLETE BLOOD COUNT 31250 MON % 10.8 % 1 Unknown COMPLETE BLOOD COUNT 84061 EOS % 3.6 % 1 Unknown COMPLETE BLOOD COUNT 38545 BASO % 0.5 % 1 Unknown COMPLETE BLOOD COUNT 86704 RDW 13.2 % 1 Unknown COMPLETE BLOOD COUNT 42501 ABS SUSIE 4.19 10e9/L 011 Unknown COMPLETE BLOOD COUNT 33544 ABS LYMPH 1.26 10e9/L 011 Unknown COMPLETE BLOOD COUNT 04338 ABS MONO 0.69 10e9/L 011 Unknown COMPLETE BLOOD COUNT 11620 ABS EOS 0.23 10e9/L 011 Unknown COMPLETE BLOOD COUNT 90915 ABS BASO 0.03 10e9/L 011 Unknown COMPLETE BLOOD COUNT 70505 RDW-SD 41.7 fL 1 Unknown THYROID STIMULATING HORMONE 61932 TSH 1.345 uIU/ML 07/26/2011 Unknown GFR CALC 9618848 GFR AA >60 ML/MIN 07/26/2011 Unknown GFR CALC 1560891 GFR NON-AA >60 ML/MIN 07/26/2011 Unknown BRAIN NATRIURETIC PEPTIDE(BNP) 03839 BRAIN PEP 23 pg/mL 01/19/2011 Unknown CANCEL 2763090 CANCEL FOOTNOTE 01/18/2011 Unknown TESTOSTERONE TOTAL 76644 TESTOS TO 138 NG/DL 12/19/2010 Unknown COMPLETE BLOOD COUNT 18985 WBC 8.4 10e9/L 12/08/19 11 Unknown COMPLETE BLOOD COUNT 66407 RBC 4.40 10e12/L 2010 Unknown COMPLETE BLOOD COUNT 28165 HGB 13.3 g/dL 1 Unknown COMPLETE BLOOD COUNT 47152 HCT DET 39.8 % 1 Unknown COMPLETE BLOOD COUNT 48284 MCV 90.5 fL 1 Unknown COMPLETE BLOOD COUNT 68904 MCH 30.2 pg 1 Unknown COMPLETE BLOOD COUNT 06201 MCHC 33.4 g/dL 1 Unknown COMPLETE BLOOD COUNT 39803 PLT 201 10e9/L 12/08/19 11 Unknown COMPLETE BLOOD COUNT 78400 MPV 10.6 fL 1 Unknown COMPLETE BLOOD COUNT 69891 SUSIE % 72.5 % 1 Unknown COMPLETE BLOOD COUNT 69648 LY % 14.8 % 1 Unknown COMPLETE BLOOD COUNT 57783 MON % 10.6 % 1 Unknown COMPLETE BLOOD COUNT 50908 EOS % 1.7 % 1 Unknown COMPLETE BLOOD COUNT 19419 BASO % 0.4 % 1 Unknown COMPLETE BLOOD COUNT 76387 RDW 13.7 % 1 Unknown COMPLETE BLOOD COUNT 59902 ABS SUSIE 6.09 10e9/L 011 Unknown COMPLETE BLOOD COUNT 28353 ABS LYMPH 1.24 10e9/L 011 Unknown COMPLETE BLOOD COUNT 54427 ABS MONO 0.89 10e9/L 011 Unknown COMPLETE BLOOD COUNT 17777 ABS EOS 0.14 10e9/L 011 Unknown COMPLETE BLOOD COUNT 85239 ABS BASO 0.03 10e9/L 011 Unknown COMPLETE BLOOD COUNT 90428 RDW-SD 44.0 fL 1 Unknown LIPID GROUP 46498 HDL TEST 40 MG/DL 12/07/2010 Unknown LIPID GROUP 83457 TRIG 383 MG/DL 12/07/2010 Unknown LIPID GROUP 76823 TEST LDL 82 MG/DL 12/07/2010 Unknown LIPID GROUP 78780 CHOL 199 MG/DL 12/07/2010 Unknown LIPID GROUP 95909 RCHOL/HDL 4.98 RATIO 12/07/2010 Unknow n GFR CALC 0512865 GFR AA >60 ML/MIN 12/07/2010 Unknown GFR CALC 5383413 GFR NON-AA >60 ML/MIN 12/07/2010 Unknown COMPREHENSIVE METABOLIC 19465 AST 29 U/L 2010 Unknown COMPREHENSIVE METABOLIC 36537 ALT 39 IU/L 2010 Unknown COMPREHENSIVE METABOLIC 99211 BUN 17 MG/DL 2010 Unknown COMPREHENSIVE METABOLIC 31095 ALBUMIN 4.9 GM/DL 2010 Unknown COMPREHENSIVE METABOLIC 15043 CHLORIDE 100 MMOL/L 12/07 Unknown COMPREHENSIVE METABOLIC 34624 BILI TOT 0.3 MG/DL 2010 Unknown COMPREHENSIVE METABOLIC 88010 ALK PHOS 53 U/L 2010 Unknown COMPREHENSIVE METABOLIC 61856 SODIUM 137 MMOL/L 12/07 Unknown COMPREHENSIVE METABOLIC 88919 CREATININE 0.98 MG/DL 11/22 Unknown COMPREHENSIVE METABOLIC 31906 CALCIUM 9.5 MG/DL 2010 Unknown COMPREHENSIVE METABOLIC 54321 POTASSIUM 4.3 MMOL/L 12/07 Unknown COMPREHENSIVE METABOLIC 34390 PROT TOT 6.6 GM/DL 2010 Unknown COMPREHENSIVE METABOLIC 59326 Glucose 176 MG/DL 2010 Unknown COMPREHENSIVE METABOLIC 55873 BICARB 28 MMOL/L 2010 Unknown COMPREHENSIVE METABOLIC 35502 ANION GAP 9 MEQ/L 2010 Unknown PSA EQUIMOLAR JONATAN 49059 PSA EQ 0.65 NG/ML 1 Unknown HEMOGLOBIN A1C (GLYCOSYLATED) 19287 A1C HPLC 76509-1 6.9 % 12/07/2010 Unknown Procedures Procedure Codes Date THER/PROPH/DIAG INJ SC/IM CPT-4: 72065 12/25/2019 METHYLPREDNISOLONE INJECTION CPT-4: J2930 12/25/2019 FLU VACC PRSV FREE INC ANTIG 65 AND OLDER CPT-4: 29330 08/07/2019 FLU VACC PRSV FREE INC ANTIG 65 AND OLDER CPT-4: 09969 08/07/2019 ADMIN INFLUENZA VIRUS VAC CPT-4: G0008 08/07/2019 THER/PROPH/DIAG INJ SC/IM CPT-4: 40193 07/14/2019 METHYLPREDNISOLONE INJECTION CPT-4: J2930 07/14/2019 ROUTINE VENIPUNCTURE CPT-4: 77666 06/17/2019 ASSAY THYROID STIM HORMONE CPT-4: 59123 06/17/2019 COMPREHEN METABOLIC PANEL CPT-4: 02473 06/17/2019 COMPLETE CBC W/AUTO DIFF WBC CPT-4: 56242 06/17/2019 ASSAY OF IRON CPT-4: 43238 06/17/2019 VITAMIN B-12 CPT-4: 36552 06/17/2019 RBC SED RATE AUTOMATED CPT-4: 57196 06/17/2019 THER/PROPH/DIAG INJ SC/IM CPT-4: 31023 06/10/2019 THER/PROPH/DIAG INJ SC/IM CPT-4: 09479 06/02/2019 THER/PROPH/DIAG INJ SC/IM CPT-4: 89296 05/27/2019 THER/PROPH/DIAG INJ SC/IM CPT-4: 68032 05/12/2019 ROUTINE VENIPUNCTURE CPT-4: 78071 05/08/2019 COMPREHEN METABOLIC PANEL CPT-4: 16135 05/08/2019 COMPLETE CBC W/AUTO DIFF WBC CPT-4: 17977 05/08/2019 A1C HPLC CPT-4: 12535 05/08/2019 VITAMIN D TOTAL (25 HYDROXY) CPT-4: 32609 05/08/2019 ASSAY OF IRON CPT-4: 18529 05/08/2019 ASSAY OF FERRITIN CPT-4: 27067 05/08/2019 VITAMIN B-12 CPT-4: 21008 05/08/2019 THER/PROPH/DIAG INJ SC/IM CPT-4: 33427 03/21/2019 METHYLPREDNISOLONE INJECTION CPT-4: J2930 03/21/2019 THER/PROPH/DIAG INJ SC/IM CPT-4: 28285 03/13/2019 METHYLPREDNISOLONE INJECTION CPT-4: J2930 03/13/2019 THER/PROPH/DIAG INJ SC/IM CPT-4: 03907 12/25/2018 METHYLPREDNISOLONE INJECTION CPT-4: J2930 12/25/2018 ROUTINE VENIPUNCTURE CPT-4: 47534 12/09/2018 ASSAY OF FREE THYROXINE CPT-4: 41452 12/09/2018 ASSAY THYROID STIM HORMONE CPT-4: 92324 12/09/2018 COMPREHEN METABOLIC PANEL CPT-4: 57886 12/09/2018 COMPLETE CBC W/AUTO DIFF WBC CPT-4: 75453 12/09/2018 LIPID PANEL CPT-4: 49446 12/09/2018 A1C HPLC CPT-4: 83185 12/09/2018 PRESCRIP TRANSMIT VIA ERX SY CPT-4: G8553 08/21/2018 PRESCRIP TRANSMIT VIA ERX SY CPT-4: G8553 08/07/2018 THER/PROPH/DIAG INJ SC/IM CPT-4: 33530 05/23/2018 METHYLPREDNISOLONE INJECTION CPT-4: J2930 05/23/2018 PRESCRIP TRANSMIT VIA ERX SY CPT-4: G8553 05/02/2018 THER/PROPH/DIAG INJ SC/IM CPT-4: 54347 04/29/2018 METHYLPREDNISOLONE INJECTION CPT-4: J2930 04/29/2018 DEXAMETHASONE SODIUM PHOS CPT-4: J1100 04/22/2018 THER/PROPH/DIAG INJ SC/IM CPT-4: 42475 04/22/2018 TRIAMCINOLONE ACET INJ NOS CPT-4: J3301 04/22/2018 PRESCRIP TRANSMIT VIA ERX SY CPT-4: G8553 04/22/2018 PRESCRIP TRANSMIT VIA ERX SY CPT-4: G8553 01/23/2018 URINALYSIS NONAUTO W/O SCOPE CPT-4: 05931 01/02/2018 URINE CULTURE/ COLONY COUNT CPT-4: 41667 01/02/2018 PRESCRIP TRANSMIT VIA ERX SY CPT-4: G8553 01/02/2018 PRESCRIP TRANSMIT VIA ERX SY CPT-4: G8553 12/28/2017 PRESCRIP TRANSMIT VIA ERX SY CPT-4: G8553 12/21/2017 CEFTRIAXONE SODIUM INJECTION CPT-4: J0696 12/17/2017 THER/PROPH/DIAG INJ SC/IM CPT-4: 51938 12/17/2017 THER/PROPH/DIAG INJ SC/IM CPT-4: 05059 12/17/2017 TRIAMCINOLONE ACET INJ NOS CPT-4: J3301 12/17/2017 PRESCRIP TRANSMIT VIA ERX SY CPT-4: G8553 12/17/2017 DRAIN/INJECT JOINT/BURSA CPT-4: 90020 12/11/2017 TRIAMCINOLONE ACET INJ NOS CPT-4: J3301 12/11/2017 DEXAMETHASONE SODIUM PHOS CPT-4: J1100 12/11/2017 DESTRUCT PREMALG LESION (Cryosurgery) CPT-4: 79448 PRESCRIP TRANSMIT VIA ERX SY CPT-4: G8553 10/17/2017 DEXAMETHASONE SODIUM PHOS CPT-4: J1100 08/02/2017 THER/PROPH/DIAG INJ SC/IM CPT-4: 56866 08/02/2017 TRIAMCINOLONE ACET INJ NOS CPT-4: J3301 08/02/2017 PRESCRIP TRANSMIT VIA ERX SY CPT-4: G8553 08/02/2017 PNEUMOCOCCAL VACC 23 OLIVIA IM CPT-4: 73257 07/24/2017 ADMIN PNEUMOCOCCAL VACCINE CPT-4: G0009 07/24/2017 ALBUTEROL NON-COMP UNIT CPT-4: J7613 07/02/2017 AIRWAY INHALATION TREATMENT CPT-4: 91427 07/02/2017 THER/PROPH/DIAG INJ SC/IM CPT-4: 63621 07/02/2017 METHYLPREDNISOLONE INJECTION CPT-4: J2930 07/02/2017 PRESCRIP TRANSMIT VIA ERX SY CPT-4: G8553 05/29/2017 ROUTINE VENIPUNCTURE CPT-4: 89710 04/17/2017 ASSAY OF IRON CPT-4: 03161 04/17/2017 VITAMIN B-12 CPT-4: 14515 04/17/2017 COMPREHEN METABOLIC PANEL CPT-4: 74808 04/17/2017 COMPLETE CBC W/AUTO DIFF WBC CPT-4: 11312 04/17/2017 ASSAY OF FERRITIN CPT-4: 27793 04/17/2017 ASSAY THYROID STIM HORMONE CPT-4: 88143 04/17/2017 A1C HPLC CPT-4: 75505 04/17/2017 DRAIN/INJECT JOINT/BURSA CPT-4: 79086 02/01/2017 TRIAMCINOLONE ACET INJ NOS CPT-4: J3301 02/01/2017 DEXAMETHASONE SODIUM PHOS CPT-4: J1100 02/01/2017 ROUTINE VENIPUNCTURE CPT-4: 76454 12/27/2016 COMPLETE CBC W/AUTO DIFF WBC CPT-4: 86601 12/27/2016 ROUTINE VENIPUNCTURE CPT-4: 19963 12/21/2016 COMPLETE CBC W/AUTO DIFF WBC CPT-4: 78993 12/21/2016 ROUTINE VENIPUNCTURE CPT-4: 04340 12/12/2016 COMPLETE CBC W/AUTO DIFF WBC CPT-4: 38137 12/12/2016 PRESCRIP TRANSMIT VIA ERX SY CPT-4: G8553 10/31/2016 PRESCRIP TRANSMIT VIA ERX SY CPT-4: G8553 10/03/2016 PRESCRIP TRANSMIT VIA ERX SY CPT-4: G8553 09/04/2016 DESTRUCT PREMALG LESION (Cryosurgery) CPT-4: 91890 DESTRUCT PREMALG LES 2-14 CPT-4: 15671 08/22/2016 PRESCRIP TRANSMIT VIA ERX SY CPT-4: G8553 08/10/2016 PRESCRIP TRANSMIT VIA ERX SY CPT-4: G8553 07/06/2016 FLU VACC PRSV FREE INC ANTIG 65 AND OLDER CPT-4: 98902 06/13/2016 PNEUMOCOCCAL VACC 13 OLIVIA IM CPT-4: 53665 06/13/2016 ADMIN INFLUENZA VIRUS VAC CPT-4: G0008 06/13/2016 ADMIN PNEUMOCOCCAL VACCINE CPT-4: G0009 06/13/2016 CERUM REMOVAL CPT-4: 03894 04/05/2016 PRESCRIP TRANSMIT VIA ERX SY CPT-4: G8553 04/03/2016 ROUTINE VENIPUNCTURE CPT-4: 81167 03/06/2016 ASSAY OF FREE THYROXINE CPT-4: 18601 03/06/2016 ASSAY THYROID STIM HORMONE CPT-4: 31528 03/06/2016 COMPREHEN METABOLIC PANEL CPT-4: 12555 03/06/2016 COMPLETE CBC W/AUTO DIFF WBC CPT-4: 95415 03/06/2016 LIPID PANEL CPT-4: 74236 03/06/2016 ASSAY OF PSA TOTAL CPT-4: 62460 03/06/2016 TESTOSTERONE TOTAL - MALE CPT-4: 35506 03/06/2016 A1C HPLC CPT-4: 50689 03/06/2016 ASSAY OF IRON CPT-4: 30528 03/06/2016 VITAMIN B-12 CPT-4: 54837 03/06/2016 INJ TENDON SHEATH/LIGAMENT CPT-4: 37114 02/17/2016 TRIAMCINOLONE ACET INJ NOS CPT-4: J3301 02/17/2016 DEXAMETHASONE SODIUM PHOS CPT-4: J1100 02/17/2016 PRESCRIP TRANSMIT VIA ERX SY CPT-4: G8553 01/31/2016 PRESCRIP TRANSMIT VIA ERX SY CPT-4: G8553 12/30/2015 PRESCRIP TRANSMIT VIA ERX SY CPT-4: G8553 12/06/2015 PRESCRIP TRANSMIT VIA ERX SY CPT-4: G8553 11/15/2015 PPPS, subseq visit CPT-4: G0439 10/05/2015 MICROALBUMIN QUANTITATIVE CPT-4: 78404 10/05/2015 PROTEIN/CREAT URINE WITH RATIO CPT-4: 46909|59065 6 ROUTINE VENIPUNCTURE CPT-4: 45032 07/01/2015 ASSAY OF FREE THYROXINE CPT-4: 04620 07/01/2015 ASSAY THYROID STIM HORMONE CPT-4: 74940 07/01/2015 COMPLETE CBC W/AUTO DIFF WBC CPT-4: 47011 07/01/2015 LIPID PANEL CPT-4: 32393 07/01/2015 ASSAY OF PSA TOTAL CPT-4: 00561 07/01/2015 AEROBIC WOUND CULTURE & STN CPT-4: 28537 06/28/2015 PRESCRIP TRANSMIT VIA ERX SY CPT-4: G8553 06/28/2015 AEROBIC WOUND CULTURE & STN CPT-4: 65923 06/03/2015 PRESCRIP TRANSMIT VIA ERX SY CPT-4: G8553 06/03/2015 ROUTINE VENIPUNCTURE CPT-4: 23918 06/01/2015 COMPREHEN METABOLIC PANEL CPT-4: 05422 06/01/2015 A1C HPLC CPT-4: 04432 06/01/2015 COMPREHEN METABOLIC PANEL CPT-4: 11433 02/25/2015 A1C HPLC CPT-4: 30783 02/25/2015 [employer] [facility]MALG [facility]ESION (Cryosurgery) CPT-4: 45055 PROTEIN/CREAT URINE WITH RATIO CPT-4: 33728|61014 5 MICROALBUMIN QUANTITATIVE CPT-4: 11295 10/27/2014 INFLUENZA ASSAY W/OPTIC CPT-4: 41753 10/21/2014 PRESCRIP TRANSMIT VIA ERX SY CPT-4: G8553 10/06/2014 PRESCRIP TRANSMIT VIA ERX SY CPT-4: G8553 09/21/2014 PRESCRIP TRANSMIT VIA ERX SY CPT-4: G8553 09/02/2014 MICROALBUMIN QUANTITATIVE CPT-4: 81933 08/27/2014 PROTEIN/CREAT URINE WITH RATIO CPT-4: 97507|91123 4 PPPS, subseq visit CPT-4: G0439 08/10/2014 ROUTINE VENIPUNCTURE CPT-4: 24840 08/05/2014 ASSAY OF FREE THYROXINE CPT-4: 89057 08/05/2014 ASSAY THYROID STIM HORMONE CPT-4: 31506 08/05/2014 COMPREHEN METABOLIC PANEL CPT-4: 48739 08/05/2014 COMPLETE CBC W/AUTO DIFF WBC CPT-4: 52194 08/05/2014 LIPID PANEL CPT-4: 69154 08/05/2014 A1C HPLC CPT-4: 11268 08/05/2014 FLUZONE, 5ML (Medicare) CPT-4: Q2038 08/05/2014 ADMIN INFLUENZA VIRUS VAC CPT-4: G0008 08/05/2014 METHYLPREDNISOLONE 40 MG INJ CPT-4: J1030 12/16/2013 TRIAMCINOLONE ACET INJ NOS CPT-4: J3301 12/16/2013 DRAIN/INJECT JOINT/BURSA CPT-4: 81778 12/16/2013 PRESCRIP TRANSMIT VIA ERX SY CPT-4: G8553 10/09/2013 THER/PROPH/DIAG INJ SC/IM CPT-4: 43144 09/18/2013 METHYLPREDNISOLONE 40 MG INJ CPT-4: J1030 09/18/2013 TRIAMCINOLONE ACET INJ NOS CPT-4: J3301 09/18/2013 PRESCRIP TRANSMIT VIA ERX SY CPT-4: G8553 09/18/2013 PRESCRIP TRANSMIT VIA ERX SY CPT-4: G8553 08/13/2013 ROUTINE VENIPUNCTURE CPT-4: 19020 06/25/2013 ASSAY OF FREE THYROXINE CPT-4: 10568 06/25/2013 ASSAY THYROID STIM HORMONE CPT-4: 59961 06/25/2013 COMPREHEN METABOLIC PANEL CPT-4: 51897 06/25/2013 COMPLETE CBC W/AUTO DIFF WBC CPT-4: 55237 06/25/2013 LIPID PANEL CPT-4: 96958 06/25/2013 A1C GLYCOSYLATED HEMOGLOBIN TEST CPT-4: 37061 013 ROUTINE VENIPUNCTURE CPT-4: 25402 04/09/2013 COMPLETE CBC W/AUTO DIFF WBC CPT-4: 86388 04/09/2013 MYCOPLASMA ANTIBODY, IFA CPT-4: 43065V5 04/09/2013 ROUTINE VENIPUNCTURE CPT-4: 73635 02/11/2013 ASSAY OF FREE THYROXINE CPT-4: 77339 02/11/2013 ASSAY THYROID STIM HORMONE CPT-4: 72501 02/11/2013 COMPREHEN METABOLIC PANEL CPT-4: 49914 02/11/2013 COMPLETE CBC W/AUTO DIFF WBC CPT-4: 19460 02/11/2013 VITAMIN B 12 FOLIC ACID CPT-4: 96697|89936 02/11/2013 C-REACTIVE PROTEIN CPT-4: 12779 02/11/2013 A1C GLYCOSYLATED HEMOGLOBIN TEST CPT-4: 18397 013 ASSAY OF BLOOD/URIC ACID CPT-4: 17804 02/11/2013 CEFTRIAXONE SODIUM INJECTION CPT-4: J0696 01/31/2013 THER/PROPH/DIAG INJ SC/IM CPT-4: 67698 01/31/2013 THER/PROPH/DIAG INJ SC/IM CPT-4: 41512 01/31/2013 METHYLPREDNISOLONE 40 MG INJ CPT-4: J1030 01/31/2013 TRIAMCINOLONE ACET INJ NOS CPT-4: J3301 01/31/2013 ROUTINE VENIPUNCTURE CPT-4: 23901 09/19/2012 COMPREHEN METABOLIC PANEL CPT-4: 96851 09/19/2012 LIPID PANEL CPT-4: 85675 09/19/2012 A1C GLYCOSYLATED HEMOGLOBIN TEST CPT-4: 35236 012 PNEUMOCOCCAL VACC 23 OLIVIA IM CPT-4: 15158 07/10/2012 FLUZONE, 5ML (Medicare) CPT-4: Q2038 07/10/2012 ADMIN INFLUENZA VIRUS VAC CPT-4: G0008 07/10/2012 ADMIN PNEUMOCOCCAL VACCINE CPT-4: G0009 07/10/2012 ROUTINE VENIPUNCTURE CPT-4: 09273 05/06/2012 ASSAY OF FREE THYROXINE CPT-4: 26893 05/06/2012 ASSAY THYROID STIM HORMONE CPT-4: 11524 05/06/2012 COMPREHEN METABOLIC PANEL CPT-4: 16794 05/06/2012 COMPLETE CBC W/AUTO DIFF WBC CPT-4: 07028 05/06/2012 LIPID PANEL CPT-4: 26801 05/06/2012 A1C GLYCOSYLATED HEMOGLOBIN TEST CPT-4: 68598 012 IMMUNIZATION ADMIN CPT-4: 43014 02/05/2012 FLUZONE, 5ML (Medicare) CPT-4: Q2038 08/10/2011 ADMIN INFLUENZA VIRUS VAC CPT-4: G0008 08/10/2011 ROUTINE VENIPUNCTURE CPT-4: 06945 07/26/2011 ASSAY OF FREE THYROXINE CPT-4: 24490 07/26/2011 ASSAY THYROID STIM HORMONE CPT-4: 65552 07/26/2011 COMPREHEN METABOLIC PANEL CPT-4: 00720 07/26/2011 COMPLETE CBC W/AUTO DIFF WBC CPT-4: 61838 07/26/2011 LIPID PANEL CPT-4: 51878 07/26/2011 A1C GLYCOSYLATED HEMOGLOBIN TEST CPT-4: 41330 011 ASSAY OF PSA TOTAL CPT-4: 59014 07/26/2011 ROUTINE VENIPUNCTURE CPT-4: 11762 01/19/2011 ASSAY OF NATRIURETIC PEPTIDE CPT-4: 61933 01/19/2011 THER/PROPH/DIAG INJ SC/IM CPT-4: 79481 01/19/2011 CEFTRIAXONE SODIUM INJECTION CPT-4: J0696 01/19/2011 METHYLPREDNISOLONE INJECTION CPT-4: J2930 01/19/2011 THER/PROPH/DIAG INJ SC/IM CPT-4: 08514 01/19/2011 THER/PROPH/DIAG INJ SC/IM CPT-4: 58196 01/18/2011 CEFTRIAXONE SODIUM INJECTION CPT-4: J0696 01/18/2011 METHYLPREDNISOLONE INJECTION CPT-4: J2930 01/18/2011 THER/PROPH/DIAG INJ SC/IM CPT-4: 28721 01/18/2011 THER/PROPH/DIAG INJ SC/IM CPT-4: 50196 12/21/2010 TESTOSTERONE CYPIONAT 100 MG CPT-4: J1070 12/21/2010 ROUTINE VENIPUNCTURE CPT-4: 79163 12/19/2010 TESTOSTERONE TOTAL - MALE CPT-4: 61781 12/19/2010 ROUTINE VENIPUNCTURE CPT-4: 51741 12/07/2010 COMPLETE CBC W/AUTO DIFF WBC CPT-4: 50647 12/07/2010 COMPREHEN METABOLIC PANEL CPT-4: 24452 12/07/2010 LIPID PANEL CPT-4: 84992 12/07/2010 A1C GLYCOSYLATED HEMOGLOBIN TEST CPT-4: 21311 011 ASSAY OF PSA TOTAL CPT-4: 04994 12/07/2010 ROUTINE VENIPUNCTURE CPT-4: 78043 04/05/2010 PRESCRIP TRANSMIT VIA ERX SY CPT-4: G8553 04/05/2010 ROUTINE VENIPUNCTURE CPT-4: 82187 01/13/2010 METHYLPREDNISOLONE INJECTION CPT-4: J2930 12/22/2009 THER/PROPH/DIAG INJ SC/IM CPT-4: 12495 12/22/2009 THER/PROPH/DIAG INJ SC/IM CPT-4: 20468 12/22/2009 CEFTRIAXONE SODIUM INJECTION CPT-4: J0696 12/22/2009 ROUTINE VENIPUNCTURE CPT-4: 31218 12/22/2009 COMPLETE CBC W/AUTO DIFF WBC CPT-4: 49358 12/22/2009 RBC SED RATE, AUTOMATED CPT-4: 14861 12/22/2009 RPR FE/E/EN/L/M 20.1-30.0 CM CPT-4: 68724 12/22/2009 EKG FOR INITIAL PREVENT EXAM CPT-4: G0403 12/22/2009 THER/PROPH/DIAG INJ SC/IM CPT-4: 31333 12/16/2009 KETOROLAC TROMETHAMINE INJ CPT-4: J1885 12/16/2009 Vital Signs Date Vital 03/04/2020 Blood Pressure 1: 136/70 Code: 8480-6 Heart Rate 1: 76 bpm Respiratory Rate: 28 bpm SpO2: 94% Temperature: 36.9 (C) / 98.5 (F) We ight: 197 lbs 02/04/2020 Blood Pressure 1: 152/70 Code: 8480-6 Heart Rate 1: 72 bpm Respiratory Rate: 24 bpm SpO2: 91% Temperature: 36.6 (C) / 97.8 (F) We ight: 200 lbs 12/25/2019 Blood Pressure 1: 160/67 Code: 8480-6 [...] 1: 126/68 Code: 8480-6 BMI: 30.2 Code: 11861-4 Heart Rate 1: 92 bpm Height: 6' Respiratory Rate: 22 bpm SpO2: 94% Tempera ture: 36.9 (C) / 98.5 (F) Weight: 223 lbs 08/21/2018 Blood Pressure 1: 160/70 Code: 8480-6 Heart Rate 1: 79 bpm Respiratory Rate: 20 bpm SpO2: 94% Temperature: 36.7 (C) / 98.0 (F) We ight: 226 lbs 8 oz 08/07/2018 Blood Pressure 1: 138/70 Code: 8480-6 BMI: 30.1 Code: 89975-5 Heart Rate 1: 80 bpm Height: 6' Respiratory Rate: 20 bpm SpO2: 94% Tempera ture: 36.9 (C) / 98.5 (F) Weight: 222 lbs 05/23/2018 Blood Pressure 1: 148/66 Code: 8480-6 BMI: 30.0 Code: 85640-4 Heart Rate 1: 96 bpm Height: 6' Respiratory Rate: 22 bpm SpO2: 94% Tempera ture: 37.3 (C) / 99.1 (F) Weight: 221 lbs 05/02/2018 Blood Pressure 1: 146/78 Code: 8480-6 BMI: 29.6 Code: 86171-0 Heart Rate 1: 78 bpm Height: 6' Respiratory Rate: 26 bpm SpO2: 94% Tempera ture: 35.7 (C) / 96.2 (F) Weight: 218 lbs 04/29/2018 Blood Pressure 1: 142/62 Code: 8480-6 BMI: 28.6 Code: 16741-0 Heart Rate 1: 82 bpm Height: 6' Respiratory Rate: 22 bpm SpO2: 98% Tempera ture: 36.4 (C) / 97.6 (F) Weight: 211 lbs 04/22/2018 Blood Pressure 1: 126/64 Code: 8480-6 BMI: 30.0 Code: 87236-9 Heart Rate 1: 96 bpm Height: 6' [...] 1: 144/78 Code: 8480-6 BMI: 30.7 Code: 89669-2 Heart Rate 1: 92 bpm Height: 6' Respiratory Rate: 28 bpm SpO2: 94% Tempera ture: 36.9 (C) / 98.4 (F) Weight: 226 lbs 12/28/2017 Blood Pressure 1: 136/80 Code: 8480-6 Heart Rate 1: 92 bpm Respiratory Rate: 28 bpm SpO2: 94% Temperature: 36.7 (C) / 98.1 (F) 12/21/2017 Blood Pressure 1: 146/84 Code: 8480-6 BMI: 31.1 Code: 82871-4 Heart Rate 1: 84 bpm Height: 6' [...] 1: 142/64 Code: 8480-6 BMI: 31.3 Code: 55746-9 Heart Rate 1: 98 bpm Height: 6' Respiratory Rate: 24 bpm SpO2: 94% Tempera ture: 36.4 (C) / 97.6 (F) Weight: 231 lbs 10/17/2017 Blood Pressure 1: 140/68 Code: 8480-6 BMI: 31.7 Code: 68760-2 Heart Rate 1: 88 bpm Height: 6' Respiratory Rate: 20 bpm SpO2: 94% Tempera ture: 36.8 (C) / 98.3 (F) Weight: 234 lbs 08/02/2017 Blood Pressure 1: 142/80 Code: 8480-6 BMI: 31.1 Code: 78209-0 Heart Rate 1: 86 bpm Height: 6' Respiratory Rate: 20 bpm SpO2: 90% Tempera ture: 35.9 (C) / 96.7 (F) Weight: 229 lbs 07/02/2017 Blood Pressure 1: 146/64 Code: 8480-6 BMI: 29.6 Code: 74941-4 Heart Rate 1: 96 bpm Height: 6' Respiratory Rate: 20 bpm Temperature: 36 .4 (C) / 97.6 (F) Weight: 218 lbs 05/29/2017 Blood Pressure 1: 152/68 Code: 8480-6 BMI: 31.5 Code: 07006-7 Heart Rate 1: 100 bpm Height: 6' Respiratory Rate: 20 bpm SpO2: 92% Tempera ture: 36.9 (C) / 98.4 (F) Weight: 232 lbs 02/01/2017 Blood Pressure 1: 146/64 Code: 8480-6 BMI: 30.7 Code: 34687-1 Heart Rate 1: 76 bpm Height: 6' Respiratory Rate: 20 bpm SpO2: 95% Tempera ture: 36.8 (C) / 98.2 (F) Weight: 226 lbs 01/29/2017 Blood Pressure 1: 146/78 Code: 8480-6 Heart Rate 1: 84 bpm Respiratory Rate: 20 bpm SpO2: 96% Temperature: 36.1 (C) / 97.0 (F) We ight: 226 lbs 12/21/2016 Blood Pressure 1: 126/60 Code: 8480-6 BMI: 30.8 Code: 64050-6 Heart Rate 1: 88 bpm Height: 6' Respiratory Rate: 22 bpm SpO2: 94% Tempera ture: 36.7 (C) / 98.0 (F) Weight: 227 lbs 12/14/2016 Blood Pressure 1: 126/70 Code: 8480-6 BMI: 29.8 Code: 95389-8 Heart Rate 1: 92 bpm Height: 6' Respiratory Rate: 22 bpm SpO2: 93% Tempera ture: 36.8 (C) / 98.2 (F) Weight: 220 lbs 11/14/2016 Blood Pressure 1: 128/62 Code: 8480-6 Heart Rate 1: 100 bpm Respiratory Rate: 20 bpm SpO2: 96% Temperature: 36.6 (C) / 97.8 (F) We ight: 220 lbs 10/31/2016 Blood Pressure 1: 142/60 Code: 8480-6 BMI: 30.1 Code: 17698-7 Heart Rate 1: 112 bpm Height: 6' Respiratory Rate: 24 bpm SpO2: 93% Tempera ture: 37.1 (C) / 98.7 (F) Weight: 222 lbs 10/03/2016 Blood Pressure 1: 136/78 Code: 8480-6 Heart Rate 1: 106 bpm Respiratory Rate: 24 bpm SpO2: 93% Temperature: 36.6 (C) / 97.8 (F) We ight: 221 lbs 09/04/2016 Blood Pressure 1: 112/44 Code: 8480-6 BMI: 30.1 Code: 65797-4 Heart Rate 1: 90 bpm Height: 6' Respiratory Rate: 20 bpm SpO2: 93% Tempera ture: 36.6 (C) / 97.9 (F) Weight: 222 lbs 08/22/2016 Blood Pressure 1: 142/68 Code: 8480-6 BMI: 30.4 Code: 77742-0 Heart Rate 1: 100 bpm Height: 6' Respiratory Rate: 24 bpm SpO2: 93% Tempera ture: 36.7 (C) / 98.1 (F) Weight: 224 lbs 08/10/2016 Blood Pressure 1: 134/60 Code: 8480-6 BMI: 30.2 Code: 77488-1 Heart Rate 1: 76 bpm Height: 6' [...] 1: 122/72 Code: 8480-6 BMI: 30.7 Code: 37438-4 Heart Rate 1: 96 bpm Height: 6' Respiratory Rate: 22 bpm SpO2: 96% Tempera ture: 35.9 (C) / 96.7 (F) Weight: 226 lbs 04/03/2016 Blood Pressure 1: 146/64 Code: 8480-6 BMI: 30.8 Code: 68220-4 Heart Rate 1: 76 bpm Height: 6' Respiratory Rate: 20 bpm Temperature: 36 .8 (C) / 98.2 (F) Weight: 227 lbs 03/02/2016 Blood Pressure 1: 148/60 Code: 8480-6 BMI: 31.1 Code: 80901-9 Heart Rate 1: 80 bpm Height: 6' Respiratory Rate: 22 bpm SpO2: 94% Tempera ture: 36.6 (C) / 97.8 (F) Weight: 229 lbs 02/17/2016 Blood Pressure 1: 132/60 Code: 8480-6 BMI: 31.3 Code: 91285-1 Heart Rate 1: 80 bpm Height: 6' Respiratory Rate: 20 bpm Temperature: 36 .9 (C) / 98.4 (F) Weight: 231 lbs 02/14/2016 Blood Pressure 1: 126/70 Code: 8480-6 BMI: 31.3 Code: 99057-2 Heart Rate 1: 80 bpm Height: 6' Respiratory Rate: 24 bpm SpO2: 95% Tempera ture: 36.9 (C) / 98.5 (F) Weight: 231 lbs 01/31/2016 Blood Pressure 1: 136/60 Code: 8480-6 Heart Rate 1: 76 bpm Respiratory Rate: 22 bpm Temperature: 37.0 (C) / 98.6 (F) Weight: 230 lbs 12/30/2015 Blood Pressure 1: 128/58 Code: 8480-6 BMI: 31.2 Code: 66026-0 Heart Rate 1: 80 bpm Height: 6' Respiratory Rate: 20 bpm Temperature: 36 .8 (C) / 98.2 (F) Weight: 230 lbs 12/16/2015 Blood Pressure 1: 122/60 Code: 8480-6 BMI: 32.0 Code: 22292-0 Heart Rate 1: 84 bpm Height: 6' Respiratory Rate: 24 bpm Temperature: 37 .1 (C) / 98.7 (F) Weight: 236 lbs 12/06/2015 Blood Pressure 1: 162/74 Code: 8480-6 BMI: 32.5 Code: 80676-6 Heart Rate 1: 90 bpm Height: 6' Respiratory Rate: 20 bpm SpO2: 96% Tempera ture: 36.4 (C) / 97.6 (F) Weight: 240 lbs 11/15/2015 Blood Pressure 1: 166/80 Code: 8480-6 BMI: 32.4 Code: 69196-7 Heart Rate 1: 92 bpm Height: 6' Respiratory Rate: 28 bpm Temperature: 36 .5 (C) / 97.7 (F) Weight: 239 lbs 10/05/2015 Blood Pressure 1: 146/76 Code: 8480-6 BMI: 32.4 Code: 54337-4 Heart Rate 1: 88 bpm Height: 6' Respiratory Rate: 28 bpm Temperature: 37 .1 (C) / 98.7 (F) Weight: 239 lbs 07/22/2015 Blood Pressure 1: 144/68 Code: 8480-6 BMI: 31.9 Code: 33515-1 Heart Rate 1: 88 bpm Height: 6' [...] 1: 142/64 Code: 8480-6 BMI: 32.1 Code: 71074-3 Heart Rate 1: 80 bpm Height: 6' Respiratory Rate: 18 bpm Temperature: 36 .4 (C) / 97.6 (F) Weight: 237 lbs 06/07/2015 Blood Pressure 1: 164/58 Code: 8480-6 BMI: 32.1 Code: 55246-1 Heart Rate 1: 88 bpm Height: 6' Respiratory Rate: 20 bpm Temperature: 36 .6 (C) / 97.9 (F) Weight: 237 lbs 06/03/2015 Blood Pressure 1: 152/64 Code: 8480-6 BMI: 32.1 Code: 93879-3 Heart Rate 1: 96 bpm Height: 6' Respiratory Rate: 20 bpm Temperature: 37 .4 (C) / 99.3 (F) Weight: 237 lbs 06/01/2015 Blood Pressure 1: 136/70 Code: 8480-6 BMI: 31.7 Code: 57726-0 Heart Rate 1: 72 bpm Height: 6' Respiratory Rate: 22 bpm SpO2: 94% Tempera ture: 36.6 (C) / 97.9 (F) Weight: 234 lbs 02/25/2015 Blood Pressure 1: 146/80 Code: 8480-6 BMI: 32.4 Code: 51334-6 Heart Rate 1: 84 bpm Height: 6' Respiratory Rate: 28 bpm Temperature: 36 .7 (C) / 98.0 (F) Weight: 239 lbs 10/27/2014 Blood Pressure 1: 168/70 Code: 8480-6 BMI: 32.0 Code: 99237-8 Heart Rate 1: 80 bpm Height: 6' Respiratory Rate: 30 bpm SpO2: 98% Tempera ture: 36.4 (C) / 97.6 (F) Weight: 236 lbs 10/21/2014 Blood Pressure 1: 152/58 Code: 8480-6 BMI: 32.1 Code: 36876-1 Heart Rate 1: 78 bpm Height: 6' Respiratory Rate: 20 bpm Temperature: 37 .8 (C) / 100.1 (F) Weight: 237 lbs 10/06/2014 Blood Pressure 1: 132/64 Code: 8480-6 BMI: 32.5 Code: 07049-0 Heart Rate 1: 88 bpm Height: 6' Respiratory Rate: 32 bpm SpO2: 94% Tempera ture: 36.8 (C) / 98.2 (F) Weight: 240 lbs 09/21/2014 Blood Pressure 1: 134/68 Code: 8480-6 BMI: 32.4 Code: 27477-0 Heart Rate 1: 96 bpm Height: 6' Respiratory Rate: 30 bpm Temperature: 36 .7 (C) / 98.1 (F) Weight: 239 lbs 09/08/2014 Blood Pressure 1: 128/74 Code: 8480-6 BMI: 32.4 Code: 50020-9 Heart Rate 1: 82 bpm Height: 6' Respiratory Rate: 28 bpm SpO2: 93% Tempera ture: 36.6 (C) / 97.8 (F) Weight: 239 lbs 09/02/2014 Blood Pressure 1: 164/78 Code: 8480-6 Heart Rate 1: 86 bpm Respiratory Rate: 22 bpm SpO2: 96% Temperature: 36.1 (C) / 97.0 (F) We ight: 239 lbs 08/10/2014 Blood Pressure 1: 152/60 Code: 8480-6 BMI: 32.8 Code: 87769-8 Heart Rate 1: 80 bpm Height: 6' [...] 1: 146/80 Code: 8480-6 BMI: 33.9 Code: 21269-1 Heart Rate 1: 80 bpm Height: 6' [...] 1: 148/78 Code: 8480-6 BMI: 30.5 Code: 52652-6 Heart Rate 1: 84 bpm Height: 6' Respiratory Rate: 28 bpm SpO2: 97% Tempera ture: 36.4 (C) / 97.5 (F) Weight: 225 lbs 08/06/2013 Blood Pressure 1: 158/70 Code: 8480-6 Heart Rate 1: 110 bpm Respiratory Rate: 22 bpm SpO2: 88% Temperature: 39.7 (C) / 103.4 (F) W eight: 07/16/2013 Blood Pressure 1: 148/82 Code: 8480-6 BMI: 31.9 Code: 87218-4 Heart Rate 1: 80 bpm Height: 6' Respiratory Rate: 20 bpm Temperature: 36 .6 (C) / 97.9 (F) Weight: 235 lbs 04/09/2013 Blood Pressure 1: 142/78 Code: 8480-6 BMI: 31.5 Code: 92856-7 Heart Rate 1: 88 bpm Height: 6' Respiratory Rate: 32 bpm SpO2: 95% Tempera ture: 37.0 (C) / 98.6 (F) Weight: 232 lbs 02/11/2013 Blood Pressure 1: 146/70 Code: 8480-6 Heart Rate 1: 88 bpm Respiratory Rate: 20 bpm Temperature: 36.8 (C) / 98.3 (F) Weight: 230 lbs 01/31/2013 Blood Pressure 1: 128/70 Code: 8480-6 BMI: 31.6 Code: 16247-7 Heart Rate 1: 84 bpm Height: 6' Respiratory Rate: 24 bpm SpO2: 92% Tempera ture: 36.7 (C) / 98.0 (F) Weight: 233 lbs 01/20/2013 Blood Pressure 1: 148/64 Code: 8480-6 BMI: 31.6 Code: 39678-8 Heart Rate 1: 68 bpm Height: 6' Temperature: 36.1 (C) / 97.0 (F) Weight: 233 lbs 12/19/2012 Blood Pressure 1: 128/68 Code: 8480-6 BMI: 32.0 Code: 21186-6 Heart Rate 1: 64 bpm Height: 6' Temperature: 36.7 (C) / 98.0 (F) Weight: 236 lbs 10/21/2012 Blood Pressure 1: 142/64 Code: 8480-6 BMI: 30.9 Code: 22845-7 Heart Rate 1: 74 bpm Height: 6' Temperature: 36.2 (C) / 97.1 (F) Weight: 228 lbs 09/18/2012 Blood Pressure 1: 126/60 Code: 8480-6 BMI: 31.3 Code: 79813-9 Heart Rate 1: 88 bpm Height: 6' Respiratory Rate: 20 bpm Temperature: 36 .5 (C) / 97.7 (F) Weight: 231 lbs 08/28/2012 Blood Pressure 1: 132/68 Code: 8480-6 BMI: 31.5 Code: 56340-7 Heart Rate 1: 92 bpm Height: 6' Respiratory Rate: 30 bpm SpO2: 94% Tempera ture: 37.1 (C) / 98.7 (F) Weight: 232 lbs 07/10/2012 Blood Pressure 1: 118/70 Code: 8480-6 BMI: 30.5 Code: 60168-5 Heart Rate 1: 72 bpm Height: 6' Respiratory Rate: 24 bpm SpO2: 96% Tempera ture: 36.7 (C) / 98.0 (F) Weight: 225 lbs 05/09/2012 Blood Pressure 1: 124/68 Code: 8480-6 BMI: 29.8 Code: 59741-9 Heart Rate 1: 72 bpm Height: 6' Respiratory Rate: 20 bpm Temperature: 36 .8 (C) / 98.2 (F) Weight: 220 lbs 10/02/2011 Blood Pressure 1: 140/82 Code: 8480-6 BMI: 30.7 Code: 96357-5 Heart Rate 1: 68 bpm Height: 6' Temperature: 36.7 (C) / 98.0 (F) Weight: 226 lbs 08/07/2011 Blood Pressure 1: 122/68 Code: 8480-6 BMI: 30.5 Code: 96288-5 Heart Rate 1: 72 bpm Height: 6' [...] 1: 140/78 Code: 8480-6 BMI: 31.9 Code: 57210-4 Heart Rate 1: 84 bpm Height: 6' Temperature: 36.6 (C) / 97.8 (F) Weight: 235 lbs 12/22/2009 Blood Pressure 1: 140/74 Code: 8480-6 BMI: 31.9 Code: 39463-4 Heart Rate 1: 94 bpm Height: 6' SpO2: 92% Temperature: 35.7 (C) / 96.2 (F) Weight: 235 lbs 12/13/2009 Blood Pressure 1: 146/80 Code: 8480-6 BMI: 33.0 Code: 30439-5 Heart Rate 1: 86 bpm Height: 6' Temperature: 36.5 (C) / 97.7 (F) Weight: 243 lbs Functional Status No Functional Status data Reason For Visit Reason For Visit Effective Dates Notes cough 03/04/2020 dyspnea 02/04/2020 follow up 12/25/2019 ER visit knee pain 12/22/2019 fatigue 11/12/2019 follow up 09/11/2019 cough 08/07/2019 cough 07/14/2019 follow up 07/01/2019 vomiting 06/24/2019 follow up 06/17/2019 right knee pain injection(s) 06/10/2019 b12 shot injection(s) 06/02/2019 injection(s) 05/27/2019 injection(s) 05/12/2019 B12 shot follow up 05/08/2019 follow up 04/07/2019 [facility] dizziness 03/24/2019 dizziness 03/21/2019 sore throat 03/13/2019 Patient finished zit hromax last night and has one dose of prednisone left follow up 03/10/2019 ER fw---patient cu rrently taking zithromax, prednisone and breathing treatments every two hours spasms/spasticity 02/26/2019 follow up 02/13/2019 follow up 01/14/2019 [facility] follow up 12/25/2018 cough 12/09/2018 here [...] constantly with her. follow up 04/22/2018 [facility] follow up 01/28/2018 knee pain 01/23/2018 nocturia [...] reports he was going to call his insurance loss assessor today. follow up 05/29/2017 Discuss Low Back [...] nightly. Patient has just been discharged from [facility] with Pneumonia. Currently on Levaquin once daily. [...] fwup follow up 03/13/2016 Patient here for [facility] on medication education for insulin [...] 09/21/2014 Hospital fwup follow up 09/08/2014 Hospital fwup cough 09/02/2014 well man exam (65+ years) [...] 12/13/2009 Encounters Encounter Performer Location Codes Date ([id number]) OFFICE/OUTPATIENT VISIT EST Diagnosis: Chronic obstructive pulmonary disease, unspecified[ICD10: J44.9] Lita BARAKAT DO [facility] CPT-4: 07915 03/04/2020 ([id number]) OFFICE/OUTPATIENT VISIT EST Diagnosis: Chronic obstructive pulmonary disease, unspecified[ICD10: J44.9] Lita BARAKAT DO [facility] CPT-4: 48673 02/04/2020 ([id number]) OFFICE/OUTPATIENT VISIT EST Diagnosis: Chronic obstructive pulmonary disease with (acute) exacerbation[ICD10: J44.1] Lita BARAKAT DO [facility] CPT- 4: 31884 12/25/2019 ([id number]) OFFICE/OUTPATIENT VISIT EST Diagnosis: Noncompliance with diabetes treatment[ICD10: Z91.19] Diagnosis: Insomnia[ICD10: G47.00] Diagnosis: Pain in right knee[ICD10: M25.561] Lita [facility]at [facility] CPT-4: 51613 12/22/2019 ([id number]) OFFICE/OUTPATIENT VISIT EST Diagnosis: Chronic respiratory failure with hypercapnia[ICD10: J96.12] Diagnosis: Chronic airway obstruction, not elsewhere classified[ICD10: J44.9] Diagnosis: Basal cell carcinoma, face[ICD10: C44.310] Lita BARAKAT DO [facility] CPT-4: 89800 11/12/2019 ([id number]) OFFICE/OUTPATIENT VISIT EST Diagnosis: Chronic obstructive pulmonary disease, unspecified[ICD10: J44.9] Diagnosis: Right thyroid nodule[ICD10: E04.1] Lita Jasminelvabrii BROWN JANET Ashley BARAKAT DO [facility] CPT-4: 42812 09/11/2019 ([id number]) OFFICE/OUTPATIENT VISIT EST Diagnosis: Chronic bronchitis[ICD10: J42] 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 CPT-4: 02745 08/07/2019 ([id number]) OFFICE/OUTPATIENT VISIT EST Diagnosis: Chronic obstructive pulmonary disease with (acute) exacerbation[ICD10: J44.1] Autumn BARAKAT DO [facility] CPT- 4: 56626 07/14/2019 ([id number]) OFFICE/OUTPATIENT VISIT EST Diagnosis: Primary insomnia[ICD10: F51.01] Diagnosis: Dyspepsia and other specified disorders of function of stomach[ICD10: K31.89] Lita BARAKAT DO [facility] CPT-4: 43626 07/01/2019 ([id number]) OFFICE/OUTPATIENT VISIT EST Diagnosis: Epigastric pain[ICD10: R10.13] Diagnosis: Nausea[ICD10: R11.0] Diagnosis: Weight loss[ICD10: R63.4] Lita AREVALO [facility] CPT-4: 52732 06/24/2019 ([id number]) OFFICE/OUTPATIENT VISIT EST Diagnosis: Chronic obstructive pulmonary disease, unspecified[ICD10: J44.9] Diagnosis: Chronic insomnia[ICD10: F51.04] Diagnosis: Anemia[ICD10: D64.9] Diagnosis: Diplopia[ICD10: H53.2] Diagnosis: Columba[ICD10: F30.9] Lita BARAKAT [facility] CPT-4: 58649 06/17/2019 ([id number]) NURSE/OUTPATIENT VISIT EST Diagnosis: Vitamin B12 deficiency anemia, unspecified[ICD10: D51.9] Lita BARAKAT DO [facility] CPT-4: 64011 06/10/2019 ([id number]) NURSE/OUTPATIENT VISIT EST Diagnosis: Vitamin B12 deficiency anemia, unspecified[ICD10: D51.9] Lita BARAKAT DO [facility] CPT-4: 08455 06/02/2019 ([id number]) NURSE/OUTPATIENT VISIT EST Diagnosis: Vitamin B12 deficiency anemia, unspecified[ICD10: D51.9] Lita BARAKAT [facility] CPT-4: 53324 05/27/2019 ([id number]) NURSE/OUTPATIENT VISIT EST Diagnosis: Vitamin B12 deficiency anemia, unspecified[ICD10: D51.9] Lita BARAKAT [employer] [facility] CPT-4: 56240 05/12/2019 ([id number]) OFFICE/OUTPATIENT VISIT EST Diagnosis: Restless legs syndrome[ICD10: G25.81] Diagnosis: Primary insomnia[ICD10: F51.01] Diagnosis: Anemia, unspecified[ICD10: D64.9] Diagnosis: Type 2 diabetes mellitus with hyperglycemia[ICD10: E11.65] Diagnosis: Vitamin D deficiency, unspecified[ICD10: E55.9] Lita BARAKAT DO [facility] CPT-4: 33313 05/08/2019 ([id number]) OFFICE/OUTPATIENT VISIT EST Diagnosis: Pain in right knee[ICD10: M25.561] Diagnosis: Restless legs syndrome[ICD10: G25.81] Diagnosis: Insomnia, unspecified[ICD10: G47.00] Lita BARAKAT [employer] [facility] CPT-4: 17905 04/07/2019 ([id number]) NO CHARGE Diagnosis: Chronic obstructive pulmonary disease with (acute) exacerbation[ICD10: J44.1] Diagnosis: Dizziness and giddiness[ICD10: R42] Diagnosis: Generalized anxiety disorder[ICD10: F41.1] Autumn BARAKAT [employer] [facility] CPT-4: 83639 03/24/2019 ([id number]) OFFICE/OUTPATIENT VISIT EST Diagnosis: Chronic obstructive pulmonary disease with (acute) exacerbation[ICD10: J44.1] Diagnosis: Dizziness and giddiness[ICD10: R42] Autumn BARAKAT [employer] [facility] CPT-4: 20304 03/21/2019 ([id number]) OFFICE/OUTPATIENT VISIT EST Diagnosis: Candidal stomatitis[ICD10: B37.0] Lita BARAKAT [employer] [facility] CPT-4: 43945 03/13/2019 ([id number]) OFFICE/OUTPATIENT VISIT EST Diagnosis: Chronic obstructive pulmonary disease with acute lower respiratory infection[ICD10: J44.0] Diagnosis: Restless legs syndrome[ICD10: G25.81] Lita BARAKAT DO [facility] CPT-4: 92024 03/10/2019 ([id number]) OFFICE/OUTPATIENT VISIT EST Diagnosis: Restless legs syndrome[ICD10: G25.81] Lita BARAKAT DO [facility] CPT-4: 20683 02/26/2019 ([id number]) OFFICE/OUTPATIENT VISIT EST Diagnosis: Primary insomnia[ICD10: F51.01] Diagnosis: Chronic obstructive pulmonary disease, unspecified[ICD10: J44.9] Lita BARAKAT DO [facility] CPT-4: 13184 02/13/2019 ([id number]) OFFICE/OUTPATIENT VISIT EST Diagnosis: Chronic obstructive pulmonary disease, unspecified[ICD10: J44.9] Diagnosis: Chronic respiratory failure with hypoxia[ICD10: J96.11] Diagnosis: Chronic respiratory failure with hypercapnia[ICD10: J96.12] iLta BARAKAT DO [facility] CPT-4: 20168 01/14/2019 ([id number]) OFFICE/OUTPATIENT VISIT EST Diagnosis: Chronic respiratory failure with hypoxia[ICD10: J96.11] Diagnosis: Patient's noncompliance with other medical treatment and regimen[ICD10: Z91.19] Diagnosis: Chronic obstructive pulmonary disease with (acute) exacerbation[ICD10: J44.1] Lita BARAKAT [employer] [facility] CPT- 4: 91090 12/25/2018 ([id number]) OFFICE/OUTPATIENT VISIT EST Diagnosis: Essential (primary) hypertension[ICD10: I10] Diagnosis: Type 2 diabetes mellitus with hyperglycemia[ICD10: E11.65] Diagnosis: Hypothyroidism, unspecified[ICD10: E03.9] Diagnosis: Hyperlipidemia, unspecified[ICD10: E78.5] Diagnosis: Acute recurrent maxillary sinusitis[ICD10: J01.01] Ines Banerjee LITA BARAKAT [employer] [facility] CPT-4: 45623 12/09/2018 ([id number]) OFFICE/OUTPATIENT VISIT EST Diagnosis: Candidal stomatitis[ICD10: B37.0] Lita ALYOSCAR Segura Ashley BARAKAT [employer] [facility] CPT-4: 73587 12/05/2018 ([id number]) OFFICE/OUTPATIENT VISIT EST Diagnosis: Acute recurrent sinusitis, unspecified[ICD10: J01.91] Diagnosis: Pain in right knee[ICD10: M25.561] Lita BARAKAT DO [facility] CPT-4: 15277 10/23/2018 ([id number]) OFFICE/OUTPATIENT VISIT EST Diagnosis: Restless legs syndrome[ICD10: G25.81] Diagnosis: Basal cell carcinoma of skin of scalp and neck[ICD10: C44.41] Lita BARAKAT DO [facility] CPT-4: 78941 08/21/2018 ([id number]) OFFICE/OUTPATIENT VISIT EST Diagnosis: Chronic obstructive pulmonary disease with acute lower respiratory infection[ICD10: J44.0] Diagnosis: Restless legs syndrome[ICD10: G25.81] Lita BARAKAT DO [facility] CPT-4: 47153 08/07/2018 ([id number]) OFFICE/OUTPATIENT VISIT EST Diagnosis: Chronic obstructive pulmonary disease with acute lower respiratory infection[ICD10: J44.0] Lita BARAKAT DO [facility] CPT-4: 77569 05/23/2018 ([id number]) OFFICE/OUTPATIENT VISIT EST Diagnosis: Candidal stomatitis[ICD10: B37.0] Lita BARAKAT DO [facility] CPT-4: 35270 05/02/2018 ([id number]) OFFICE/OUTPATIENT VISIT EST Diagnosis: Candidal stomatitis[ICD10: B37.0] Diagnosis: Other retention of urine[ICD10: R33.8] Diagnosis: Chronic obstructive pulmonary disease with acute lower respiratory infection[ICD10: J44.0] Autumn Finkdi LITA BARAKAT DO [facility] CPT-4: 00253 04/29/2018 ([id number]) OFFICE/OUTPATIENT VISIT EST Diagnosis: Chronic obstructive pulmonary disease with acute lower respiratory infection[ICD10: J44.0] Lita BARAKAT DO [facility] CPT-4: 59659 04/22/2018 ([id number]) OFFICE/OUTPATIENT VISIT EST Diagnosis: Unilateral primary osteoarthritis, right knee[ICD10: M17.11] Diagnosis: Squamous cell carcinoma of skin, unspecified[ICD10: C44.92] Lita BARAKAT DO [facility] CPT-4: 68177 01/28/2018 ([id number]) OFFICE/OUTPATIENT VISIT EST Diagnosis: Pain in right knee[ICD10: M25.561] Diagnosis: 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 CPT-4: 84405 01/02/2018 ([id number]) OFFICE/OUTPATIENT VISIT EST Diagnosis: Chronic obstructive pulmonary disease with (acute) exacerbation[ICD10: J44.1] Autumn BARAKAT [facility] CPT- 4: 37510 12/28/2017 ([id number]) OFFICE/OUTPATIENT VISIT EST Diagnosis: Acute bronchitis, unspecified[ICD10: J20.9] Autumn BARAKAT DO [facility] CPT-4: 10968 12/21/2017 ([id number]) OFFICE/OUTPATIENT VISIT EST Diagnosis: Chronic obstructive pulmonary disease with acute lower respiratory infection[ICD10: J44.0] Diagnosis: Pain in right knee[ICD10: M25.561] Autumn BARAKAT [facility] CPT-4: 49765 12/17/2017 ([id number]) OFFICE/OUTPATIENT VISIT EST Diagnosis: Laceration without foreign body of right hand, sequela[ICD10: S61.411S] Diagnosis: Restless legs syndrome[ICD10: G25.81] Lita BARAKAT [facility] CPT-4: 59260 10/17/2017 OFFICE/OUTPATIENT VISIT EST Diagnosis: Chronic obstructive pulmonary disease with acute lower respiratory infection[ICD10: J44.0] Autumn BARAKAT DO [facility] CPT-4: 70211 08/02/2017 ([id number]) OFFICE/OUTPATIENT VISIT EST Diagnosis: PNEUMOCOCCAL VACCINE[ICD10: Z23] Lita BARAKAT DO [facility] CPT-4: 33944 07/24/2017 OFFICE/OUTPATIENT VISIT EST Diagnosis: Chronic obstructive pulmonary disease with (acute) exacerbation[ICD10: J44.1] Autumn BARAKAT DO [facility] CPT- 4: 64967 07/02/2017 OFFICE/OUTPATIENT VISIT EST Diagnosis: Low back pain[ICD10: M54.5] Ruchi Buchanan LITA De Los Santos [facility]IN [facility] CPT-4: 54441 05/29/2017 ([id number]) OFFICE/OUTPATIENT VISIT EST Diagnosis: Essential (primary) hypertension[ICD10: I10] Diagnosis: Hypothyroidism, unspecified[ICD10: E03.9] Diagnosis: Dizziness and giddiness[ICD10: R42] Diagnosis: Other abnormality of red blood cells[ICD10: R71.8] Diagnosis: Contracture of muscle, unspecified site[ICD10: M62.40] Lita BARAKAT [facility] CPT-4: 89110 04/17/2017 OFFICE/OUTPATIENT VISIT EST Diagnosis: Pain in left shoulder[ICD10: M25.512] Ruchi Buchanan TADEO BARAKAT [facility] CPT-4: 99665 01/29/2017 ([id number]) OFFICE/OUTPATIENT VISIT EST Diagnosis: Anemia, unspecified[ICD10: D64.9] Lita BARAKAT [facility] CPT-4: 29316 12/27/2016 ([id number]) OFFICE/OUTPATIENT VISIT EST Diagnosis: Other fatigue[ICD10: R53.83] Diagnosis: Other iron deficiency anemias[ICD10: D50.8] Lita BARAKAT [facility] CPT-4: 57381 12/21/2016 ([id number]) OFFICE/OUTPATIENT VISIT EST Diagnosis: Anemia, unspecified[ICD10: D64.9] Diagnosis: Other fatigue[ICD10: R53.83] Diagnosis: Restless legs syndrome[ICD10: G25.81] Lita Jasminbetty PIEDRA MARC DonovanFerdinand [facility] CPT-4: 99449 12/14/2016 ([id number]) OFFICE/OUTPATIENT VISIT EST Diagnosis: Anemia, unspecified[ICD10: D64.9] Diagnosis: Other abnormality of red blood cells[ICD10: R71.8] Lita Jasminbetty CRAWFORD DonovanFerdinand [facility] CPT-4: 66243 12/12/2016 ([id number]) OFFICE/OUTPATIENT VISIT EST Diagnosis: Pneumonia, unspecified organism[ICD10: J18.9] Diagnosis: Restless legs syndrome[ICD10: G25.81] Magda Toth TADEO TRAN [facility]Ferdinand [facility] CPT-4: 40298 11/14/2016 ([id number]) OFFICE/OUTPATIENT VISIT EST Diagnosis: Candidal stomatitis[ICD10: B37.0] Lita Jasminbetty Segura DonovanFerdinand [facility] CPT-4: 43815 10/31/2016 ([id number]) OFFICE/OUTPATIENT VISIT EST Diagnosis: Acute upper respiratory infection, unspecified[ICD10: J06.9] Diagnosis: Personal history of pneumonia (recurrent)[ICD10: Z87.01] Magda Toth LITA DonovanFerdinand [facility] CPT-4: 05838 10/03/2016 ([id number]) OFFICE/OUTPATIENT VISIT EST Diagnosis: Restless legs syndrome[ICD10: G25.81] Diagnosis: Insomnia, unspecified[ICD10: G47.00] Magda Toth JERMAIN LOPEZ DonovanFerdinand [facility] CPT-4: 92607 09/04/2016 ([id number]) OFFICE/OUTPATIENT VISIT EST Diagnosis: Restless legs syndrome[ICD10: G25.81] Diagnosis: Primary insomnia[ICD10: F51.01] Lita CRAWFORD DonovanFerdinand [facility] CPT-4: 62077 08/10/2016 OFFICE/OUTPATIENT VISIT EST Diagnosis: Toxic gastroenteritis and colitis[ICD10: K52.1] Diagnosis: Dizziness and giddiness[ICD10: R42] Diagnosis: Headache[ICD10: R51] Diagnosis: Restless legs syndrome[ICD10: G25.81] Lita Orender TADEO BARAKAT [facility] CPT-4: 40821 07/06/2016 ([id number]) OFFICE/OUTPATIENT VISIT EST Diagnosis: Chest pain, unspecified[ICD10: R07.9] Diagnosis: Dyspnea, unspecified[ICD10: R06.00] Magda BARAKAT 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 CPT-4: 11488 06/13/2016 ([id number]) OFFICE/OUTPATIENT VISIT EST Diagnosis: Chest pain, unspecified[ICD10: R07.9] Diagnosis: Other forms of dyspnea[ICD10: R06.09] Diagnosis: Shortness of breath[ICD10: R06.02] Diagnosis: Other fatigue[ICD10: R53.83] Magda BARAKAT [facility] CPT-4: 26020 06/01/2016 ([id number]) OFFICE/OUTPATIENT VISIT EST Diagnosis: Unspecified hearing loss, left ear[ICD10: H91.92] Diagnosis: Other specified disorders of Eustachian tube, left ear[ICD10: H69.82] Magda BARAKAT 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 CPT - 4: 09447 03/13/2016 ([id number]) OFFICE/OUTPATIENT VISIT EST Diagnosis: Type 2 diabetes mellitus with hyperglycemia[ICD10: E11.65] Diagnosis: Hyperlipidemia, unspecified[ICD10: E78.5] Diagnosis: Essential (primary) hypertension[ICD10: I10] Diagnosis: Chronic obstructive pulmonary disease, unspecified[ICD10: J44.9] Diagnosis: Testicular hypofunction[ICD10: E29.1] Diagnosis: Male erectile dysfunction, unspecified[ICD10: N52.9] Diagnosis: Anemia, unspecified[ICD10: D64.9] Lita Segura DonovanFerdinand GASPER [employer] [facility] CPT-4: 02678 03/06/2016 ([id number]) OFFICE/OUTPATIENT VISIT EST Diagnosis: Type 2 diabetes mellitus with hyperglycemia[ICD10: E11.65] Diagnosis: Hyperlipidemia, unspecified[ICD10: E78.5] Diagnosis: Chronic obstructive pulmonary disease, unspecified[ICD10: J44.9] Diagnosis: Male erectile dysfunction, unspecified[ICD10: N52.9] Lita CRAWFORD DonovanFerdinand G[facility]PER [employer] [facility] CPT-4: 28217 03/02/2016 ([id number]) OFFICE/OUTPATIENT VISIT EST Diagnosis: Pain in right foot[ICD10: M79.671] Magda GONZALES DonovanFerdinand [facility]PER [employer] [facility] CPT-4: 56449 02/14/2016 OFFICE/OUTPATIENT VISIT EST Diagnosis: Generalized anxiety disorder[ICD10: F41.1] Lita CRAWFORD DonovanFerdinand [facility] CPT-4: 22465 01/31/2016 ([id number]) OFFICE/OUTPATIENT VISIT EST Diagnosis: Generalized anxiety disorder[ICD10: F41.1] Lita Funezbrii LITA DonovanFerdinand [facility] CPT-4: 11800 12/30/2015 ([id number]) OFFICE/OUTPATIENT VISIT EST Diagnosis: Localized swelling, mass and lump, neck[ICD10: R22.1] Lita CRAWFORD DonovanFerdinand [facility] CPT-4: 21442 12/16/2015 OFFICE/OUTPATIENT VISIT EST Diagnosis: Localized enlarged lymph nodes[ICD10: R59.0] Diagnosis: Otalgia, left ear[ICD10: H92.02] Stephanie Gabriel BARAKAT DO [facility] CPT-4: 40686 12/06/2015 OFFICE/OUTPATIENT VISIT EST Diagnosis: Localized enlarged lymph nodes[ICD10: R59.0] Diagnosis: Squamous cell carcinoma of skin, unspecified[ICD10: C44.92] Diagnosis: Actinic keratosis[ICD10: L57.0] Stephanie BARAKAT DO [facility] CPT-4: 15167 11/15/2015 OFFICE/OUTPATIENT VISIT EST Diagnosis: Cellulitis of left lower limb[ICD10: L03.116] Diagnosis: Encounter for examination and observation for other specified reasons[ICD10: Z04.8] Diagnosis: Chronic obstructive pulmonary disease, unspecified[ICD10: J44.9] Stephanie BARAKAT DO [facility] CPT-4: 35780 07/22/2015 OFFICE/OUTPATIENT VISIT EST Diagnosis: Other specified joint disorders, left knee[ICD10: M25.862] Diagnosis: Cellulitis of left lower limb[ICD10: L03.116] Diagnosis: Other fatigue[ICD10: R53.83] Diagnosis: Hyperlipidemia, unspecified[ICD10: E78.5] Stephanie BARAKTA DO [facility] CPT-4: 86708 07/01/2015 OFFICE/OUTPATIENT VISIT EST Diagnosis: Pain in left knee[ICD10: M25.562] Diagnosis: Cellulitis of left lower limb[ICD10: L03.116] Diagnosis: Other specified joint disorders, left knee[ICD10: M25.862] Stephanie EspinozaAshleyisabella ALYLINE Ashley BARAKAT DO [facility] CPT-4: 04428 06/28/2015 OFFICE/OUTPATIENT VISIT EST Diagnosis: PREPATELLAR BURSITIS[ICD9: 726.65] Diagnosis: Cellulitis of knee, left[ICD9: 682.6] Stephanie TRAN DonovanFerdinand [facility] CPT-4: 88787 06/09/2015 ([id number]) OFFICE/OUTPATIENT VISIT EST Diagnosis: PREPATELLAR BURSITIS[ICD9: 726.65] Diagnosis: Cellulitis of knee, left[ICD9: 682.6] Lita TRAN Ashley BARAKAT [facility] CPT-4: 19666 06/07/2015 OFFICE/OUTPATIENT VISIT EST Diagnosis: Cellulitis of knee, left[ICD9: 682.6] Stephanie BARAKAT DO [facility] CPT-4: 45843 06/03/2015 ([id number]) OFFICE/OUTPATIENT VISIT EST Diagnosis: DM W/O COMPLICATION TYPE II, UNCONTROLLED[ICD9: 250.02] Diagnosis: COPD[ICD9: 496] Lita BARAKAT DO [facility] CPT- 4: 55835 06/01/2015 ([id number]) OFFICE/OUTPATIENT VISIT EST Diagnosis: COPD[ICD9: 496] Diagnosis: DYSPNEA[ICD9: 786.09] Diagnosis: DM W/O COMPLICATION TYPE II, UNCONTROLLED[ICD9: 250.02] Diagnosis: Actinic keratosis[ICD9: 702.0] Lita BARAKAT [facility] CPT-4: 01835 02/25/2015 ([id number]) OFFICE/OUTPATIENT VISIT EST Diagnosis: ASTHMA NOS[ICD9: 493.90] Diagnosis: COPD[ICD9: 496] Diagnosis: DM W/O COMPLICATION TYPE II, UNCONTROLLED[ICD9: 250.02] Lita BARAKAT [facility] CPT-4: 42404 10/27/2014 OFFICE/OUTPATIENT VISIT EST Diagnosis: DYSPNEA[ICD9: 786.09] Diagnosis: COPD[ICD9: 496] Lita BARAKAT [facility] CPT- 4: 75489 10/06/2014 ([id number]) OFFICE/OUTPATIENT VISIT EST Diagnosis: PNEUMONIA, ORGANISM[ICD9: 486] Diagnosis: COPD[ICD9: 496] Diagnosis: DYSPNEA[ICD9: 786.09] Lita BARAKAT [facility] CPT-4: 82169 09/21/2014 OFFICE/OUTPATIENT VISIT EST Diagnosis: PNEUMONIA, ORGANISM[ICD9: 486] Diagnosis: DYSPNEA[ICD9: 786.09] Diagnosis: COUGH[ICD9: 786.2] Stephanie BARAKAT DO [facility] CPT-4: 80979 09/08/2014 OFFICE/OUTPATIENT VISIT EST Diagnosis: COPD with exacerbation[ICD9: 491.21] Diagnosis: COUGH[ICD9: 786.2] Diagnosis: DYSPNEA[ICD9: 786.09] Stephanie BARAKAT [facility] CPT-4: 39709 09/02/2014 ([id number]) OFFICE/OUTPATIENT VISIT EST Diagnosis: DM W/O COMPLICATION TYPE II, UNCONTROLLED[ICD9: 250.02] Lita BARAKAT DO [facility] CPT-4: 06630 08/27/2014 ([id number]) OFFICE/OUTPATIENT VISIT EST Diagnosis: DM W/O COMPLICATION TYPE II, UNCONTROLLED[ICD9: 250.02] Diagnosis: HYPERLIPIDEMIA NEC/NOS[ICD9: 272.4] Diagnosis: HYPERTENSION[ICD9: 401.9] Diagnosis: COPD[ICD9: 496] Diagnosis: FLU VACCINE[ICD10: Z23] Lita PABLO [facility] CPT-4: 14390 08/05/2014 ([id number]) OFFICE/OUTPATIENT VISIT EST Diagnosis: COPD[ICD9: 496] Diagnosis: Lumbar degenerative disc disease[ICD9: 722.52] Lita BARAKAT [facility] CPT-4: 26155 05/05/2014 OFFICE/OUTPATIENT VISIT EST Diagnosis: DYSPNEA[ICD9: 786.09] Diagnosis: COPD[ICD9: 496] Lita BARAKAT DO [facility] CPT- 4: 72271 03/24/2014 ([id number]) OFFICE/OUTPATIENT VISIT EST Diagnosis: COPD[ICD9: 496] Diagnosis: DYSPNEA[ICD9: 786.09] Lita BARAKAT DO [facility] CPT-4: 06116 03/10/2014 OFFICE/OUTPATIENT VISIT EST Diagnosis: Subacromial bursitis[ICD9: 726.19] Diagnosis: Chronic low back pain[ICD9: 724.2] Diagnosis: Lumbar degenerative disc disease[ICD9: 722.52] Lita BARAKAT [facility] CPT-4: 18043 12/16/2013 ([id number]) OFFICE/OUTPATIENT VISIT EST Diagnosis: PHARYNGITIS, ACUTE[ICD9: 462] Diagnosis: COPD[ICD9: 496] Lita Jasminbetty CRAWFORD DonovanFerdinand [facility] CPT- 4: 20306 10/09/2013 OFFICE/OUTPATIENT VISIT EST Diagnosis: COPD[ICD9: 496] Diagnosis: Acute exacerbation of chronic obstructive pulmonary disease (COPD)[ICD9: 491.21] Ruchi Chanel HERRMANNQUELINE DonovanFerdinand [facility] CPT-4: 42611 09/18/2013 ([id number]) OFFICE/OUTPATIENT VISIT EST Diagnosis: PNEUMONIA, ORGANISM[ICD9: 486] Diagnosis: DM W/O COMPLICATION TYPE II[ICD9: 250.00] Lita CRAWFORD DonovanFerdinand [facility] CPT-4: 12647 08/13/2013 ([id number]) OFFICE/OUTPATIENT VISIT EST Diagnosis: DM W/O COMPLICATION TYPE II, UNCONTROLLED[ICD9: 250.02] Diagnosis: HYPERLIPIDEMIA NEC/NOS[ICD9: 272.4] Diagnosis: HYPERTENSION[ICD9: 401.9] Diagnosis: DYSPNEA[ICD9: 786.09] Diagnosis: Family history of CABG[ICD9: V17.49] Lita HERRMANNQUE JESSICA DonovanFerdinand [facility] CPT-4: 77593 07/16/2013 ([id number]) OFFICE/OUTPATIENT VISIT EST Diagnosis: DM W/O COMPLICATION TYPE II, UNCONTROLLED[ICD9: 250.02] Diagnosis: HYPERLIPIDEMIA NEC/NOS[ICD9: 272.4] Diagnosis: HYPERTENSION[ICD9: 401.9] [facility]ita [facility] CPT-[facility]: 07360 06/25/2013 OFFICE/OUTPATIENT VISIT EST Diagnosis: COUGH[ICD9: 786.2] Diagnosis: COPD[ICD9: 496] Kimberly [facility]RAWFORD [facility]erdinand [facility] CPT- [facility]: 37734 04/09/2013 ([id number]) OFFICE/OUTPATIENT VISIT EST Diagnosis: Muscle spasm[ICD9: 728.85] Diagnosis: ARTHRALGIA-MULTIPLE SITES[ICD9: 719.49] Lita HOLMAN DonovanFerdinand [facility] CPT-4: 45190 02/11/2013 OFFICE/OUTPATIENT VISIT EST Diagnosis: COPD with exacerbation[ICD9: 491.21] Diagnosis: BRONCHITIS, ACUTE[ICD9: 466.0] Ruchi HectorJuanMoi [facility] CPT-4: 29691 01/31/2013 OFFICE/OUTPATIENT VISIT EST Diagnosis: COUGH[ICD9: 786.2] Diagnosis: PHARYNGITIS, ACUTE[ICD9: 462] Diagnosis: SINUSITIS, ACUTE[ICD9: 461.9] Lita [facility] CPT-4: 84339 01/20/2013 OFFICE/OUTPATIENT VISIT EST Diagnosis: DIZZINESS/VERTIGO[ICD9: 780.4] Lita [facility] CPT-4: 66564 12/19/2012 OFFICE/OUTPATIENT VISIT EST Diagnosis: Skin lesion of left arm[ICD9: 709.9] Diagnosis: Otitis externa[ICD9: 380.10] Diagnosis: PHARYNGITIS, ACUTE[ICD9: 462] Lita [facility] CPT-4: 07099 10/21/2012 ([id number]) OFFICE/OUTPATIENT VISIT EST Diagnosis: DM W/O COMPLICATION TYPE II, UNCONTROLLED[ICD9: 250.02] Diagnosis: HYPERLIPIDEMIA NEC/NOS[ICD9: 272.4] Diagnosis: HYPERTENSION[ICD9: 401.9] Lita Ramirez [facility] CPT-4: 22773 09/19/2012 ([id number]) OFFICE/OUTPATIENT VISIT EST Diagnosis: DM W/O COMPLICATION TYPE II, UNCONTROLLED[ICD9: 250.02] Diagnosis: HYPERLIPIDEMIA NEC/NOS[ICD9: 272.4] Diagnosis: COPD[ICD9: 496] [facility]: 29181 09/18/2012 ([id number]) OFFICE/OUTPATIENT VISIT EST Diagnosis: BRONCHITIS, ACUTE[ICD9: 466.0] Diagnosis: SINUSITIS, ACUTE[ICD9: 461.9] Lita [facility] CPT-[facility]: 82324 08/28/2012 ([id number]) OFFICE/OUTPATIENT VISIT EST Diagnosis: COPD[ICD9: 496] Diagnosis: DYSPNEA[ICD9: 786.09] Diagnosis: VAC STREP PNEUMONIAE-FLU (Medicare)[ICD9: V06.6] Lita BARAKAT DO [facility] CPT-4: 49783 07/10/2012 ([id number]) OFFICE/OUTPATIENT VISIT EST Diagnosis: DM W/O COMPLICATION TYPE II, UNCONTROLLED[ICD9: 250.02] Diagnosis: HYPERTENSION[ICD9: 401.9] Diagnosis: HYPERLIPIDEMIA NEC/NOS[ICD9: 272.4] Diagnosis: DIZZINESS/VERTIGO[ICD9: 780.4] Lita BARAKAT DO [facility] CPT-4: 57143 05/09/2012 ([id number]) OFFICE/OUTPATIENT VISIT EST Diagnosis: DM W/O COMPLICATION TYPE II, UNCONTROLLED[ICD9: 250.02] Diagnosis: HYPERLIPIDEMIA NEC/NOS[ICD9: 272.4] Diagnosis: HYPERTENSION[ICD9: 401.9] Diagnosis: MALAISE AND FATIGUE[ICD9: 780.79] Lita Jasminbetty Segura DonovanFerdinand [facility] CPT-4: 69067 05/06/2012 OFFICE/OUTPATIENT VISIT EST Diagnosis: COUGH[ICD9: 786.2] Diagnosis: SINUSITIS, ACUTE[ICD9: 461.9] Diagnosis: PHARYNGITIS, ACUTE[ICD9: 462] Lita Gasper ALYLINE Ashley BARAKAT DO [facility] CPT-4: 54306 10/02/2011 OFFICE/OUTPATIENT VISIT EST Diagnosis: DM W/O COMPLICATION TYPE II, UNCONTROLLED[ICD9: 250.02] Diagnosis: HYPERLIPIDEMIA NEC/NOS[ICD9: 272.4] Diagnosis: HYPERTENSION[ICD9: 401.9] Diagnosis: COPD[ICD9: 496] Lita CRAWFORD DonovanFerdinand [facility] CPT- 4: 31456 08/07/2011 OFFICE/OUTPATIENT VISIT EST Lita CRAWFORD DonovanFerdinand [facility] CPT- 4: 84172 04/03/2011 ([id number]) OFFICE/OUTPATIENT VISIT EST Lita PALACIOS SFerdinand [facility] CPT-4: 68887 01/18/2011 ([id number]) OFFICE/OUTPATIENT VISIT EST Lita TOBAR [facility]CR [facility] CPT-4: 78947 12/19/2010 ([id number]) OFFICE/OUTPATIENT VISIT, SUZANNE HOLMAN [facility] CPT-4: 55333 04/05/2010 ([id number]) OFFICE/OUTPATIENT VISIT, SUZANNE HOLMAN [facility] CPT-4: 59641 01/13/2010 ([id number]) OFFICE/OUTPATIENT VISIT, EST Lita HOLMAN S[facility] CPT-4: 73138 12/23/2009 ([id number]) OFFICE/OUTPATIENT VISIT, SUZANNE HOLMAN SF[facility] CPT-4: 04246 12/22/2009 ([id number]) OFFICE/OUTPATIENT VISIT, SUZANNE HOLMAN SF[facility] CPT-4: 79317 12/13/2009 Plan of Care Planned Activity Notes Codes Status Date Visit Diagnosis Plan: Chronic obstructive pulmonary di sease, unspecified Discussion: Add Daliresp 250mcg daily Fwup 4 weeks ICD-9 : 496 ICD-10 : J44.9 03/04/2020 Appointment[facility] [phone] [facility] [facility] 03/04/2020 Visit Diagnosis Plan: Chronic obstructive pulmonary di sease, unspecified Discussion: Discussed that we do not want to use steroids unless he is in an acute flare The patient has not been taking his symbicort and once again walks into the office with no oxygen He has no dsypnea on exertion or with conversation Will restart Symbicort 160 2p BID ICD-9 : 496 ICD-10 : J44.9 02/04/2020 Appointment: [facility]ita [facility] [phone] [facility] [facility] MED[facility]VIEW 02/04/2020 Visit Diagnosis Plan: Chronic obstructiv e pulmonary disease with (acute) exacerbation Discussion: Solumedrol 125mg IM Continue SVNs every 4hrs Prednisone for 1 week COVID-19 precautions ICD-9 : 491.21 ICD-10 : J44.1 12/25/2019 Appointment: Lita Barakat WPtel: [address] [place], [place] [id number] FOLLOW UP 12/25/2019 Patient Education: prednisone- [employer] Coupon [id number] [email or web address] Completed 12/25/2019 Visit Diagnosis Plan: Pain in [...] : Z91.19 12/22/2019 Appointment: Lita Barakat WPtel: [address] [place], [place] [id number] TELEMEDICINE 12/22/2019 Patient Education: baclofen- [employer] Coupon [id number] [email or web address] Completed 12/22/2019 Visit Diagnosis Plan: Chronic airway obstruction, not [...] ICD-9 : 518.83 ICD-10 : J96.12 11/12/2019 Appointment: Lita Barakat WPtel: [address] [place], [place] [id number] ACUTE ILLNESS 11/12/2019 Care Plan: Referral Order SNOMED-CT : 30 [id number] Pending 11/12/2019 Care Plan: Referral Order SNOMED-CT : 30 [id number] Pending 11/12/2019 Visit Diagnosis Plan: Chronic obstructive pulmonary di sease, unspecified Discussion: Start Pulmonary Rehab Reviewed results of CT of chest ordered by pulmonology Follow Up: 3 months ICD-9 : 496 ICD-10 : J44.9 09/11/2019 Visit Diagnosis Plan: Right thyroid nodule Discussion: Check thyroid US ICD-9 : 241.0 ICD-10 : E04.1 09/11/2019 Appointment: Lita Barakat WPtel: [address] [place], [place] [phone] MEDICATION REVIEW 09/11/2019 Care Plan: US EXAM OF HEAD AND NECK LOIN C : 26467-5 Pending 09/11/2019 Visit Diagnosis Plan: Chronic bronchitis Discussion: A ugmentin for 10 days ICD-9 : 491.9 ICD-10 : J42 08/07/2019 Appointment: Lita Barakat WPtel: [address] [place], [place] [phone] ACUTE ILLNESS 08/07/2019 Visit Diagnosis Plan: Chronic [...] him that overuse of symbicort can cause terminal gauger damage and the albuterol is to be used every 4 hours as needed. call office later this week with worsening or no improvement ICD-9 : 491.21 ICD-10 : J44.1 07/14/2019 Appointment: Autumn Oneil [address] [place] [address] ACUTE ILLNESS 07/14/2019 Visit Diagnosis Plan: Primary [...] : K31.89 07/01/2019 Appointment: Lita Barakat WPtel: [address] [place] [address] US FOLLOW UP 07/01/2019 Care Plan: CT ABDOMEN W/O DYE LOINC : 36 103-0 Pending 07/01/2019 Care Plan: Referral Order SNOMED-CT : 30 6944017 Pending 07/01/2019 Visit Diagnosis Plan: Epigastric pain [...] : R63.4 06/24/2019 Appointment: Lita Barakat WPtel: [facility] ACUTE ILLNESS 06/24/2019 Patient Education: Seroquel- OptimizeRX Coupon [id number] https://www.Prismatic/sampleJB Therapeutics/resources/getResource/61/9oa0x9x9-y887-83h0-63 Completed 06/24/2019 Patient Education: ondansetron HCl- [employer]imize[employer] Coupon [id number] https://www.Etherstack.com/samplemd/resources/getResource/61/4054854f-1630-83p4-l7 Completed 06/24/2019 Care Plan: US EXAM ABDOM COMPLETE LOINC : 97307-5 Pending 06/24/2019 Visit Diagnosis Plan: Diplopia Discussion: [...] : J44.9 06/17/2019 Appointment: Lita Barakat WPtel: [address] [place], [place] [phone] US FOLLOW UP 06/17/2019 Appointment: Lita Barakat WPtel: [address] [place], [place] [phone] US INJECTION 06/10/2019 Appointment: Lita Barakat WPtel: [address] [place], [place] [phone] US INJECTION 06/02/2019 Appointment: Lita Barakat WPtel: [address] [place], [place] [phone] US INJECTION 05/27/2019 Appointment: Lita Barakat WPtel: [address] [place], [place] [phone] US INJECTION 05/12/2019 Visit Diagnosis Plan: Vitamin [...] : D64.9 05/08/2019 Appointment: Lita Barakat WPtel: [address] [place], [place] [phone] FOLLOW UP 05/08/2019 Visit Diagnosis Plan: Pain in right knee Discussion: S top tramadol and tylenol q HS Trial of Hydrocodone 10/325mg po q HS Recheck 1month ICD-9 : 719.46 ICD-10 : M25.561 04/07/2019 Appointment: Lita Barakat WPtel: [address] [place], [place] [phone] [facility] Follow Up 04/07/2019 Visit Diagnosis Plan: [...] ICD-10 : F41.1 03/24/2019 Appointment: Autumn Oneil [address] [place], [place] [id number] ACUTE ILLNESS 03/24/2019 Patient Education: hydroxyzine HCl- [employer] Coupon [id number] Completed 03/24/2019 Patient Education: pantoprazole- [employer] Coupon [id number] Completed 03/24/2019 Visit Diagnosis Plan: Dizziness and [...] fice. patient's portable oxygen tank was empty. [email or web address] patient on importance of monitoring oxygen tank to be sure it does not become empty when he's out of the house. patient states he has an extra one in the car that he will use. ICD-9 : 491.21 ICD-10 : J44.1 03/21/2019 Appointment: [facility] [facility] 03/21/2019 Patient Education: ipratropium-albuterol- OptimizeRX C oupon [id number] https://www.Etherstack.com/samplemd/resources/getResource/61/s7gk26r6-d0c2-5t0e-56 Completed 03/21/2019 Visit Diagnosis Plan: Chronic obstructiv e pulmonary disease with (acute) exacerbation Discussion: Solumedrol now Use SVNs with duoneb at least q4hrs Patient is supposed to be on continuous oxygen but not wearing ICD-9 : 491.21 ICD-10 : J44.1 03/13/2019 Visit Diagnosis Plan: Candidal stomatitis Discussion: Diflucan and Nystatin susp ICD-9 : 112.0 ICD-10 : B37.0 03/13/2019 Appointment: Lita Barakattel: [address] [place], [place] [phone] ACUTE ILLNESS 03/13/2019 Patient Education: losartan- Optimize[employer] Coupon [id number] Completed 03/13/2019 Patient Education: nystatin- [employer] Coupon [id number] Completed 03/13/2019 Patient Education: fluconazole- [employer] Coupon [id number] Completed 03/13/2019 Visit Diagnosis Plan: Chronic obstructiv [...] : G25.81 03/10/2019 Appointment: Lita Barakat WPtel: [address] [place] [address] ACUTE ILLNESS 03/10/2019 Visit Diagnosis Plan: Restless legs syndrome Discussio n: Stop requip Increase sinemet to TID Add children's chewable MV with iron BID Add magnesium oxide 400mg daily Add Lyrica 75mg po q HS Stop trazadone Recheck 3 weeks Follow Up: 3 weeks ICD-9 : 333.94 ICD-10 : G25.81 02/26/2019 Appointment: Lita Barakat WPtel: [address] [place], [place] [id number] ACUTE ILLNESS 02/26/2019 Visit Diagnosis Plan: Primary insomnia Discussion: Tri al of doxepin 10-20mg po q HS prn sleep ICD-9 : 780.52 ICD-10 : F51.01 02/13/2019 Visit Diagnosis Plan: Chronic obstructive pulmonary di sease, unspecified Discussion: Stable Discussed trip to [place]--will get oxygen setup through [facility] ICD-9 : 496 ICD-10 : J44.9 02/13/2019 Appointment: Lita Barakat WPtel: [address] [place] [address] FOLLOW UP 02/13/2019 Patient Education: doxepin- OptimizeRX Coupon [id number] https://www.Prismatic/Etherstack/resources/getResource/61/13z6d50i-90jn-596m-4h Completed 02/13/2019 Appointment: Lita Barakat WPtel: [address] [place] [address] US CANCELED 01/20/2019 Visit Diagnosis Plan: Chronic obstructive pulmonary di sease, unspecified Discussion: Stable on oxygen Given Symbicort samples Follow Up: 1 months ICD-9 : 496 ICD-10 : J44.9 01/14/2019 Appointment: Lita Barakat WPtel: [address] [place] [address] Hospital Follow Up 01/14/2019 Visit Diagnosis Plan: [...] : J96.11 12/25/2018 Appointment: Lita Barakat WPtel: [address] [place] [address] Hospital Follow Up 12/25/2018 Appointment: Lita Barakat WPtel: [address] [place] [address] US CANCELED 12/23/2018 Appointment: Ines Banerjee [facility] [place] [address] US CANCELED 12/20/2018 Visit Diagnosis Plan: Acute [...] ICD-10 : I10 12/09/2018 Appointment: Ines Banerjee [address] [place] [address] LAB 12/09/2018 Patient Education: cefdinir- OptimizeRX Coupon [id number] https://www.Prismatic/sampleJB Therapeutics/resources/getResource/61/k0272r4j-89lc-1860-41 Completed 12/09/2018 Visit Diagnosis Plan: Candidal stomatitis Discussion: Diflucan for 5 days Hold atorvastatin while taking ICD-9 : 112.0 ICD-10 : B37.0 12/05/2018 Appointment: Lita Barakat WPtel: [address] [place] [address] ACUTE ILLNESS 12/05/2018 Patient Education: fluconazole- OptimizeRX Coupon [id number] https://www.Prismatic/sampleJB Therapeutics/resources/getResource/61/3n668l66-8fw1-55r0-62 Completed 12/05/2018 Appointment: Lita Barakat WPtel: [address] [place] [address] NO SHOW 11/11/2018 Visit Plan: Saline nasal [...] 461.9 ICD-10 : J01.91 10/23/2018 Appointment: Lita Barakattel: [address] [place], [place] [phone] ACUTE ILLNESS 10/23/2018 Patient Education: prednisone- OptimizeRX Coupon [id number] https://www.Prismatic/Etherstack/resources/getResource/61/qd1ov236-kyzq-7386-11 Completed 10/23/2018 Care Plan: A1C HPLC LOINC : 71008-0 Pending 09/10/2018 Care Plan: COMPREH[place] METAB[place] : [address]-8 Pending 09/10/2018 Care Plan: CBC Pending 09/10/2018 [...] : G25.81 08/21/2018 Appointment: Lita Barakat WPtel: [address] [place], [place] [id number] ACUTE ILLNESS 08/21/2018 Care Plan: Referral Order SNOMED-CT : 30 2942944 Pending 08/21/2018 Visit Diagnosis Plan: Chronic obstructiv [...] : G25.81 08/07/2018 Appointment: Lita Barakat WPtel: [address] [place] [address] FOLLOW UP 08/07/2018 Appointment: Lita Barakat WPtel: [address] [place], [place] [phone] 07/18/18 1210---see note in chart (km) CANCELED 07/18/2018 Visit Diagnosis Plan: Chronic obstructiv e pulmonary disease with acute lower respiratory infection Discussion: Solumedrol 125mg IM Change t o trelagy 1 inhalation daily Use SVNs with albuterol q4hrs To ER this weekend if worsens Monitor weight/swelling ICD-9 : 496 ICD-10 : J44.0 05/23/2018 Appointment: Lita Barakat WPtel: [address] [place] [address] ACUTE ILLNESS 05/23/2018 Patient Education: Patient Medication Summary Completed 05/23/2018 Visit Diagnosis Plan: Candidal stomatitis Discussion: Diflucan for 7 more days--hold atrovastatin while taking ICD-9 : 112.0 ICD-10 : B37.0 05/02/2018 Appointment: Lita Barakat WPtel: [address] [place] [address] FOLLOW UP 05/02/2018 Patient Education: Patient Medication [...] : J44.0 04/29/2018 Appointment: Autumn Oneil [address] [place] [address] ACUTE ILLNESS 04/29/2018 Patient Education: Patient Medication [...] : J44.0 04/22/2018 Appointment: Lita Barakat WPtel: [address] [place], [place] [address] Hospital Follow Up 04/22/2018 Patient Education: Patient Medication Summary Completed 04/22/2018 Appointment: Lita Barakat WPtel: [address] [facility] 04/09/18 1640---see message in chart from today [...] M17.11 01/28/2018 Appointment: Lita Barakat WPtel: [address] [place] [address] ACUTE ILLNESS 01/28/2018 Patient Education: Patient Medication Summary Completed 01/28/2018 Care Plan: Referral Order SNOMED-CT : 30 8850985 Pending 01/28/2018 Care Plan: Referral Order SNOMED-CT : 30 6713252 Pending 01/28/2018 Visit Diagnosis Plan: Functional dyspepsia Discussion: Protonix Call in 1 week on how doing ICD-9 : 536.8 ICD-10 : K30 01/23/2018 Visit Diagnosis Plan: Pain in right knee Discussion: T opical voltaren gel QID ICD-9 : 719.46 ICD-10 : M25.561 01/23/2018 Appointment: Lita Barakat WPtel: [address] [place] [address] ACUTE ILLNESS 01/23/2018 Patient Education: Patient Medication [...] : N39.0 01/02/2018 Appointment: Lita Barakat WPtel: [address] [place] [address] ACUTE ILLNESS 01/02/2018 Patient Education: Patient Medication [...] ICD-10 : J44.1 12/28/2017 Appointment: Autumn Oneil [address] [place] [address] [place] Consult 12/28/2017 Patient Education: Patient Medication [...] ICD-10 : J20.9 12/21/2017 Appointment: Autumn Oneil [address] [place], [place] [phone] ACUTE ILLNESS 12/21/2017 Patient Education: Patient Medication Summary Completed 12/21/2017 Care Plan: X-RAY EXAM OF KNEE 1 OR 2 right [place] : [address]81-8 Pending 12/18/2017 Visit Diagnosis Plan: Pain in [...] : J44.0 12/17/2017 Appointment: Autumn Oneil [address] [place] [address] ACUTE ILLNESS 12/17/2017 Patient Education: Patient Medication Summary Completed 12/17/2017 Visit Diagnosis Plan: Unilateral primary osteoarthriti s, right knee Discussion: Right knee injection as above Warned of elevated BS after injection ICD-9 : 715.96 ICD-10 : M17.11 12/11/2017 Appointment: Lita Barakat WPtel: [address] [place] [address] OFFICE SURGERY 12/11/2017 Patient Education: Patient Medication Summary Completed 12/11/2017 Visit Diagnosis Plan: Actinic keratosis Discussion: Cr yotherapy as above If persists then will need excision by Dr. Swanson ICD-9 : 702.0 ICD-10 : L57.0 11/07/2017 Appointment: Lita Barakat WPtel: [address] [place] [address] ACUTE ILLNESS 11/07/2017 Patient Education: Patient Medication [...] : S61.411S 10/17/2017 Appointment: [facility]at [facility]Ptel[facility] [facility] 10/17/2017 Patient Education: Patient Medication Summary Completed 10/17/2017 Appointment: Lita Barakat WPtel: [address] [facility] [place] Consult 08/15/2017 Visit Diagnosis Plan: Chronic [...] : J44.0 08/02/2017 Appointment: Autumn Oneil [address] [place] [address] ACUTE ILLNESS 08/02/2017 Patient Education: Patient Medication Summary Completed 08/02/2017 Patient Education: Patient Medication Summary Completed 07/31/2017 Care Plan: CHEST X-RAY 2VW FRONTAL&LATL LOINC : 37709-2 Pending 07/31/2017 Appointment: Lita Barakat WPtel: [address] [facility] US INJECTION 07/24/2017 Patient Education: Patient Medication [...] : J44.1 07/02/2017 Appointment: Autumn Oneil [address] ACUTE ILLNESS 07/02/2017 Patient Education: Patient Medication Summary Completed 07/02/2017 Care Plan: CHEST X-RAY 2VW FRONTAL&LATL LOINC : 84197-2 Pending 07/02/2017 Care Plan: MRI LUMBAR SPINE W/O DYE LOIN C : 81602-9 Pending 05/30/2017 Visit Plan: MRI at [facility] codone 5.325 1 po q 4-6 hours prn pain #40 NR and Cyclobenzaprine (ERx) Continue warm packs for pain RTC if no improvement 05/29/2017 Appointment: Ruchi Buchanan WPtel: [address] [place] [address] ACUTE ILLNESS 05/29/2017 Patient Education: Patient Medication Summary Completed 05/29/2017 Appointment: Lita Barakat WPtel: [address] [place] [address] CANCELED 05/24/2017 Patient Education: Patient Medication Summary Completed 05/22/2017 Care Plan: X-RAY EXAM L-S SPINE 2/3 VWS LOINC : 99764-9 Pending 05/22/2017 Appointment: Lita Barakat WPtel: [address] [place] [address] LAB 04/17/2017 Patient Education: Patient Medication Summary Completed 04/17/2017 Referral: Demetrius Benjamin WPtel: [address] [place] [address] Referral Initiated 04/05/2017 Appointment: Lita Barakat WPtel: [address] [place] [address] 03/30/17 0930---spoke with patient about ointments (km Consult 03/30/2017 Appointment: Lita Barakat WPtel: [address] [place] [address] 03/29/17 1320---spoke with patient, requip refilled wasn't received at pharmacy so verbally called (km) Consult 03/29/2017 Patient Education: Patient Medication Summary Completed 03/01/2017 Care Plan: CHEST X-RAY 2VW FRONTAL&LATL LOINC : 54414-8 Pending 03/01/2017 Visit Diagnosis Plan: Bursitis of left shoulder Discus yesi: Injection as above ICD-9 : 726.10 ICD-10 : M75.52 02/01/2017 Appointment: Lita Barakat WPtel: [address] [place], [place] [phone] 01/31 confirmed ~sl WORK IN 02/01/2017 Patient Education: Patient Medication Summary Completed 02/01/2017 Care Plan: X-RAY EXAM OF SHOULDER LOINC : 47369-3 Pending 01/30/2017 Visit Plan: May take OTC Tylenol/Ibuprof en as directed XRay at [facility] of left shoulder Tramadol 50mg 1 po q 6 hours prn pain called to [facility]. Sedation warning given (no driving, etc) RTC if no improvement 01/29/2017 Appointment: Ruchi Buchanan WPtel: [address] [place] [address] ACUTE ILLNESS 01/29/2017 Appointment: Ruchi Buchanan WPtel: [address] [place] [address] ACUTE ILLNESS 01/29/2017 Patient Education: Patient Medication Summary Completed 01/29/2017 Appointment: Lita Barakat WPtel: [address] [place], [place] [phone] [place] Consult 01/10/2017 Appointment: Lita Barakat WPtel: [address] [place], [place] [phone] 12/27/2016 Patient Education: Patient Medication Summary Completed [...] : R53.83 12/21/2016 Appointment: Lita Barakat WPtel: [address] [place], [place] [phone] ACUTE ILLNESS 12/21/2016 Patient Education: Patient Medication Summary Completed 12/21/2016 Appointment: Lita Barakat WPtel: [address] [place], [place] [phone] US CANCELED 12/18/2016 Visit Diagnosis Plan: Restless [...] : D64.9 12/14/2016 Appointment: Lita Barakat WPtel: [address] [place], [place] [phone] US 12/13 confirmed ~sl WORK IN 12/14/2016 Appointment: Lita Barakat WPtel: [address] [place], [place] [phone] US CANCELED 12/14/2016 Patient Education: Patient Medication Summary Completed 12/14/2016 Appointment: Lita Barakat WPtel: [address] [place], [place] [phone] US LAB 12/12/2016 Patient Education: Patient Medication Summary Completed 12/12/2016 Appointment: Lita Barakat WPtel: [address] [place], [place] [phone] US in ER this weekend--called for reports Consult 12/11/2016 Appointment: Lita Barakat WPtel: [address] [place], [place] [phone] US CANCELED 12/04/2016 Visit Diagnosis Plan: Pneumonia, [...] ICD-10 : G25.81 11/14/2016 Appointment: Magda Toth [address] [place] [address] MEDICATION REVIEW 11/14/2016 Patient Education: Patient Medication Summary Completed 11/14/2016 Appointment: Lita Barakat WPtel: [address] [place], [place] [address] US RESCHEDULED 11/02/2016 Visit Diagnosis Plan: Candidal stomatitis Discussion: Diflucan and Nystatin Hold atorvastatin while taking diflucan ICD-9 : 112.0 ICD-10 : B37.0 10/31/2016 Appointment: Lita Barakat WPtel: [address] [place], [place] [phone] ACUTE ILLNESS 10/31/2016 Patient Education: Patient Medication Summary Completed 10/31/2016 Appointment: Lita Barakat WPtel: [address] [place], [place] [phone] [place] Consult 10/23/2016 Appointment: Lita Barakat WPtel: [address] [place], [place] [phone] US CANCELED 10/18/2016 Visit Plan: Rx as above Wear O2 at all t imes as instructed by Dr Chacon Continue breathing treatments Supportive care otherwise reviewed Follow up ingrid if not improving 10/03/2016 Appointment: Lita Barakat WPtel: [address] [place] [address] CANCELED 10/03/2016 Appointment: Magda Toth [address] [place] [address] ACUTE ILLNESS 10/03/2016 Patient Education: Patient Medication Summary Completed 10/03/2016 Visit Plan: Titrate requip to 1.5mg x 1 week Call if not helpful and will increase to 2mg qHS NO MORE nyquil at bedtime - discussed potential effects of decongestants on heart, oversedating himself, etc Will increase requip, then amitriptyline if needed to desired effect 09/04/2016 Appointment: Magda Toth [address] [place] [address] ACUTE ILLNESS 09/04/2016 Patient Education: Patient Medication Summary Completed 09/04/2016 Visit Plan: Stop requip and try elavil C ryotherapy as above See ENT for removal of right ear lesion 08/22/2016 Appointment: Lita Barakat WPtel: [address] [place] [address] ACUTE ILLNESS 08/22/2016 Patient Education: Patient Medication Summary Completed 08/22/2016 Visit Plan: Trial of requip 1mg q HS Res tart zoloft Recheck 1month 08/10/2016 Appointment: Lita Barakat WPtel: [address] [place] [address] ACUTE ILLNESS 08/10/2016 Patient Education: Patient Medication Summary Completed 08/10/2016 Visit Plan: Stop HCTZ Flagyl for diarrhe a Hydrate Discussed meds for restless legs Zofran prn Nausea 07/06/2016 Appointment: Lita Barakat WPtel: [address] [place] [address] 07/05 confirmed~ Hospital Follow Up 07/06/2016 Patient Education: Patient Medication Summary Completed 07/06/2016 Visit Plan: Reviewed with Dr Gasper Palacios sidering his recent history, instructed him to go straight to the ER called to notify her so she can meet him there 06/22/2016 Appointment: Magda Toth [address] [place] [address] ACUTE ILLNESS 06/22/2016 Patient Education: Patient Medication Summary Completed 06/22/2016 Visit Plan: Continue current meds Prevna r 13 and High Dose Flu given 06/13/2016 Appointment: Lita Barakat WPtel: [address] [place] [address] 06/13 confirmed~sl WORK IN 06/13/2016 Patient Education: Patient Medication Summary Completed 06/13/2016 Appointment: Lita Barakat WPtel: [address] [place] [address] just went over current medications CANCELED 06/08/2016 Visit Plan: Reviewed POC with Dr Barakat Stat cbc, cmp, d dimer, troponin, bnp, ekg, cxr If any worsening of symptoms while awaiting results, patient instructed to go to ER or call 911 06/01/2016 Appointment: Magda Toth [address] [place] [address] ACUTE ILLNESS 06/01/2016 Patient Education: Patient Medication Summary Completed 06/01/2016 Referral: José Miguel Swanson WPtel: [address] [place] [address] 04/[address] swanson's office, patient is [...] eval and treatment 04/26/2016 Appointment: Magda Toth Lianna [address] ACUTE ILLNESS 04/26/2016 Patient Education: Patient Medication Summary Completed 04/26/2016 Care Plan: Referral Order SNOMED-CT : 30 3594769 Pending 04/26/2016 Visit Plan: Left ear flushed after conse nt with warm water with peroxide with ear syringe Patient tolerated well Ear exam is wnl following flushing Follow up PRN 04/05/2016 Appointment: Magda Toth [address] [place] [address] ACUTE ILLNESS 04/05/2016 Patient Education: Patient Medication Summary Completed 04/05/2016 Visit Plan: Increase Levemir to 25u sc d aily Increase sertraline to 2 full tablets daily--200mg Debrox or cerumenex to bilateral ears q HS for 3 nights then flush or fwup for fushing Check lab in 2mos then fwup 04/03/2016 Appointment: Lita Barakat WPtel: [address] [place], [place] [address] 03/31 03/31 lm ~sl FOLLOW UP 04/03/2016 Patient Education: Patient Medication Summary Completed 04/03/2016 Visit Plan: Patient informed of correct dosage of levemir and how to administer. Patient verbalizes understanding and will call if any questions/concerns. 10 Units of Levemir given in office SC to right lower abdom en. Patient tolerated well. Site without redness/irritation. 03/13/2016 Appointment: Lita Barakat WPtel: [address] [place], [place] [address] SPECIAL 03/13/2016 Patient Education: Patient Medication Summary Completed 03/13/2016 Appointment: Lita Barakat WPtel: [address] [place], [place] [phone] LAB 03/06/2016 Patient Education: Patient Medication Summary Completed 03/06/2016 Visit Plan: Patient saw Dr. Chacon this week and was given prednisone taper for COPD Continue current meds Accuchecks daily Patient will return on Sunday morning for fasting lab incuding CBC, CMP, TSH, free T4, HbA1C, Lipids, Testosterone, PSA 03/02/2016 Appointment: Lita Barakat WPtel: [address] [place], [place] [phone] 03/01 confirmed ~sl FOLLOW UP 03/02/2016 Patient [...] doing 02/17/2016 Appointment: Lita Barakat WPtel: [address] [place] [address] US WORK IN 02/17/2016 Patient Education: Patient Medication Summary Completed 02/17/2016 Visit Plan: Xrays to further evaluate Alvarez spect heel spur(s) Will call with results Has had injections in the past that were helpful Dr Barakat can do them or can refer to podiatry if warranted 02/14/2016 Appointment: Magda Toth [address] [place] [address] ACUTE ILLNESS 02/14/2016 Patient Education: Patient Medication Summary Completed 02/14/2016 Visit Plan: Increase Zoloft to 150mg cooper ly 01/31/2016 Appointment: Lita Barakat WPtel: [address] [place], [place] [phone] 01/26 confirmed `sl FOLLOW UP 01/31/2016 Patient Education: Patient Medication Summary Completed 01/31/2016 Visit Plan: Decrease citalopram to 20mg q AM for 1 week then stop Start zoloft 50mg q HS for 1 week then increase to 100mg q HS 12/30/2015 Appointment: Lita Barakat WPtel: [address] [place], [place] [phone] 12/28 confirmed~sl ACUTE ILLNESS 12/30/2015 Patient Education: Patient Medication Summary Completed 12/30/2015 Visit Plan: Check Neck US 12/16/2015 Appointment: Lita Barakat WPtel: [address] [place], [place] [phone] US 12/14 lm ~sl 12/15 confirmed-sp FOLLOW UP 12/16/2015 Patient Education: Patient Medication Summary Completed 12/16/2015 Care Plan: US EXAM OF HEAD AND NECK LOIN C : 21099-6 Ordered 12/16/2015 Appointment: Stephanie Rios WPtel: [address] [place], [place] [phone] 12/09 confirmed-sp 12/12 lm ~sl Patient leroy chand call and stated he just plain forgot ~sl FOLLOW UP 12/13/2015 Visit Plan: Had changing lesions of fore head and left mastoid area removed earlier today. Follow-up in one week Will proceed with soft tissue ultrasound of neck/ left cervical lymph node if no improvement antibiotics Clindamycin 300mg PO TID 12/06/2015 Appointment: Stephanie Rios WPtel: [address] [place], [place] [phone] ACUTE ILLNESS 12/06/2015 Patient Education: Patient Medication Summary Completed 12/06/2015 Referral: Lisbeth Darby WPtel: [facility] [address] [facility] 11/18/15 called luther at [place] office and confirmed time and date of appointment with patient~sl Initiated 11/18/2015 Visit Plan: Referral to Dermatology for removal of facial skin lesions Cefdinir PO bid Topical Mupirocin to skin lesions bid 11/15/2015 Appointment: Stephanie Rios WPtel: [address] [place], [place] [phone] ACUTE ILLNESS 11/15/2015 Patient Education: Patient Medication Summary Completed 11/15/2015 Visit Plan: Continue current meds Accuch ecks daily Fwup with ophthamology as scheduled Will check lab in 3mos then fwup due to recent meds that will affect blood sugar 10/05/2015 Appointment: Lita Barakat WPtel: [address] [place], [place] [phone] 10/04/15 appt confirmed cn Annual Well Visit 08/2016 Patient Education: Patient Medication Summary Completed 10/05/2015 Visit Plan: Trajenta -1 sample box given Return visit in 6 weeks for fasting labs Notify for worsening symptoms such as Increased redness, swelling, pain or drainage of Rt. knee 07/22/2015 Appointment: Stephanie Rios WPtel: [address] [place], [place] [phone] 07/21 vm left cn FOLLOW UP 07/22/2015 Patient Education: Patient Medication Summary Completed 07/22/2015 Visit Plan: Continue to change dressing twice daily and apply Mupirocin Complete Doxycycline as directed. Follow-up for worsening symptoms, such as increased swelling, redness or pain. 07/01/2015 Appointment: Stephanie Rios WPtel: [address] [place], [place] [phone] FOLLOW UP 07/01/2015 Patient Education: Patient Medication Summary Completed 07/01/2015 Visit Plan: Pressure dressing applied to draining wound left knee. Instructed to change dressing twice daily and continue Mupirocin topical Doxycycline PO bid x 10 days Wound culture obtained. Wound tissue sent to pathology Follow-up in 3 days 06/28/2015 Appointment: Stephanie Rios WPtel: [address] [place], [place] [phone] ACUTE ILLNESS 06/28/2015 Patient Education: Patient Medication Summary Completed 06/28/2015 Visit Plan: Complete antibiotics Follow- up for increased tenderness, swelling or drainage. 06/09/2015 Appointment: Stephanie Rios WPtel: [address] [place], [place] [phone] 06/08/15 lm FOLLOW UP 06/09/2015 Patient Education: Patient Medication Summary Completed 06/09/2015 Visit Plan: Apply pressure dressing toda y Continue antibiotics and topical Mupirocin Follow-up in 2 days Bursa drained from open area using pressure--serosanguinous drainage 06/07/2015 Appointment: Stephanie Rios WPtel: [address] [place], [place] [phone] 06/04/15 confirmed with patient FOLLOW UP 0 06/07/2015 Patient Education: Patient Medication Summary Completed 06/07/2015 Visit Plan: Wound culture Lt. knee Apply mupirocin to open wound bid Clindamycin 600 mg PO bid x 10 days Follow-up on Sunday06/03/2015 Appointment: Stephanie Rios WPtel: [address] [place], [place] [phone] ACUTE ILLNESS 06/03/2015 Patient Education: Patient Medication Summary Completed 06/03/2015 Visit Plan: Accuchecks daily Check CMP, HbA1C today Patient is noncompliant with meds and diet but patient says he is doing everything he is supposed to do Wants to try performomist instead of albuterol in SVN 06/01/2015 Appointment: Lita Barakat WPtel: [address] [place], [place] [phone] 05/28 appt confirmed cn FOLLOW UP 06/01/20 15 Patient Education: Patient Medication Summary Completed 06/01/2015 Visit Plan: Change Breo Ellipta to Advai r 500/50 1 p BID this next month Continue turdoza Use albuterol prn Check CMP, HbA1C today Accuchecks daily Cryotherapy as above 02/25/2015 Appointment: Lita Barakat WPtel: [address] [place], [place] [phone] 02/24 appt confirmed and explained needed payment he said ok FOLLOW UP 02/25/2015 Patient Education: Patient Medication Summary Completed 02/25/2015 Referral: Lopez Chacon [address] [facility] C&D [id number] Will put patient on cancellation list Initiated 12/08/2014 Appointment: Lita Barakat WPtel: [address] [place], [place] [phone] [facility] Follow Up 10/29/2014 Visit Plan: Finish prednisone Continue S VNs with albuterol QID See pulmonology and start Pulmonary rehab Once again discussed taking it easy this winter--that he is high risk for exacerbation 10/27/2014 Appointment: Lita Barakat WPtel: [address] [place], [place] [phone] FOLLOW UP 10/27/2014 Patient Education: Patient Medication Summary Completed 10/27/2014 Appointment: Lita Barakat WPtel: [address] [place], [place] [phone] FOLLOW UP 10/26/2014 Appointment: Stephanie Rios WPtel: [address] [place], [place] [phone] WORK IN 10/21/2014 Patient Education: Patient Medication Summary Completed 10/21/2014 Patient Education: Patient Medication Summary Completed 10/19/2014 Visit Plan: Continue oxygen and SVNS wit h duoneb Increase farxiga to 10mg daily Diflucan 100mg daily for 1week 10/06/2014 Appointment: Lita Barakat WPtel: [address] [place], [place] [phone] Moved appt time to 2:45pm FOLLOW UP 2014 Patient Education: Patient Medication Summary Completed 10/06/2014 Visit Plan: Finish omnicef Continue Breo BID and Turdoza Use SVNS with duoneb at least TID for next 2weeks then go to prn 09/21/2014 Appointment: Lita Barakat WPtel: [address] [place], [place] [phone] Hospital Follow Up 09/21/2014 Patient Education: Patient Medication Summary Completed 09/21/2014 Patient Education: [facility] - [employer] - Ventolin HFA - 18+ - Dynamic Portal ID Completed 09/21/2014 Appointment: Stephanie Rios WPtel: [address] [place], [place] [phone] Scheduled by 09/07 patient rescheduled to 09/08 with Stephanie. [facility] Follow Up 09/08/2014 Patient Education: Patient Medication Summary Completed 09/08/2014 Appointment: Stephanie Rios WPtel: [address] [place], [place] [phone] FOLLOW UP 09/02/2014 Patient Education: Patient Medication Summary Completed 09/02/2014 Patient Education: [employer] - Antibi otics, Analgesics 18+, Oral Contraceptives F 18+ Completed 09/02/2014 Appointment: Lita Barakat WPtel: [address] [place], [place] [phone] [place] UA 08/27/2014 Patient Education: Patient Medication [...] prn sleep 08/10/2014 Appointment: Lita Barakat WPtel: [address] [place], [place] [phone] Annual Well Visit 08/10/2014 Patient Education: Patient Medication Summary Completed 08/10/2014 Appointment: Lita Barakat WPtel: [address] [place], [place] [phone] LAB 08/05/2014 Patient Education: Patient Medication Summary Completed 08/05/2014 Visit Plan: ECHO results reviewed Contin ue Breo and Turdoza Pt starts PT this afternoon for back--has had one epidural with no help in pain 05/05/2014 Appointment: Lita Barakat WPtel: [address] [place], [place] [phone] FOLLOW UP 05/05/2014 Patient Education: Patient Medication Summary Completed 05/05/2014 Visit Plan: Continue Breo and Turdoza Camargo s heart tests scheduled next week Will see surgeon for removal of skin cancer to neck after done with cardiac workup 03/24/2014 Appointment: Lita Barakat WPtel: [address] [place], [place] [phone] [place] FOLLOW UP 03/24/2014 Patient Education: Patient Medication Summary Completed 03/24/2014 Visit Plan: Proceed with cardiology eval uation as patient is has numerous risk factors for CAD Change Symbicort to Breo 1p BID and add Turdorza 1p BID Recheck in weeks Check 2-D ECHO and lexiscan 03/10/2014 Appointment: Lita Barakat WPtel: [address] [place], [place] [phone] FOLLOW UP 03/10/2014 Patient Education: Patient Medication Summary Completed 03/10/2014 Visit Plan: Shoulder injection as above Back brace to use when doing any lifting for stability 12/16/2013 Appointment: Lita Barakat WPtel: [address] [place], [place] [phone] ACUTE ILLNESS 12/16/2013 Patient Education: Patient Medication Summary Completed 12/16/2013 Visit Plan: Continue symbicort and Turdo za Salt water gargles Omnicef 300mg 2 po daily for 1wk Phenergan with codeine 10/09/2013 Appointment: Lita Barakat WPtel: [address] [place], [place] [phone] WORK IN 10/09/2013 Patient Education: Patient Medication Summary Completed 10/09/2013 Appointment: Ruchi Buchanan WPtel: [address] [place] [address] ACUTE ILLNESS 09/18/2013 Patient Education: Patient Medication Summary Completed 09/18/2013 Visit Plan: Check on repeat CXR Finish a bx Start Tradjenta to replace metformin 08/13/2013 Appointment: Lita Barakat WPtel: [address] [place], [place] [phone] 08/12 Hospital Follow Up 08/13/2013 Patient Education: Patient Medication Summary Completed 08/13/2013 Visit Plan: Admit to hospital 08/06/2013 Appointment: Stephanie Rios WPtel: [address] [place], [place] [phone] ACUTE ILLNESS 08/06/2013 Patient Education: Patient Medication Summary Completed 08/06/2013 Visit Plan: Continue current meds Contin ue accuchecks daily Proceed with stress test due to high risk for CAD 07/16/2013 Appointment: Lita Barakat WPtel: [address] [place], [place] [phone] FOLLOW UP 07/16/2013 Patient Education: Patient Medication Summary Completed 07/16/2013 Appointment: Lita Barakat WPtel: [address] [place] [address] [place] LAB 06/25/2013 Patient Education: Patient Medication Summary Completed 06/25/2013 Visit Plan: prednisone and azithromycin. Doing CBC and mycoplasma blood draw. Will continue inhaler and albuterol breathing treatments. 04/09/2013 Appointment: Kimberly Villalba WPtel: [address] [place] [address] ACUTE ILLNESS 04/09/2013 Patient Education: Patient Medication Summary Completed 04/09/2013 Appointment: Lita Barakat WPtel: [address] [place] [address] ACUTE ILLNESS 02/11/2013 Patient Education: Patient Medication Summary Completed 02/11/2013 Appointment: Ruchi Buchanan WPtel: [address] [place] [address] ACUTE ILLNESS 01/31/2013 Patient Education: Patient Medication Summary Completed 01/31/2013 Visit Plan: Cefdinir and medrol dose pac k. Codeine/guiaf cough syrup. Has colonoscopy on Sunday. Pt. is to notify if fever occurs or symptoms worsen. Hydration and rest. 01/20/2013 Appointment: Kimberly Villalba WPtel: [address] [place] [address] ACUTE ILLNESS 01/20/2013 Patient Education: Patient Medication Summary Completed 01/20/2013 Visit Plan: Scopalamine patch and vestib ular exercises 12/19/2012 Appointment: Lita Barakat WPtel: [address] [place] [address] ACUTE ILLNESS 12/19/2012 Patient Education: Patient Medication Summary Completed 12/19/2012 Visit Plan: Dr. Swanson consult if no impr ovement in hearing. Pt. reports he will notify if no better in one week. Willam consult for skin lesion. 10/21/2012 Appointment: Kimberly Villalba WPtel: [address] [place] [address] ACUTE ILLNESS 10/21/2012 Patient Education: Patient Medication Summary Completed 10/21/2012 Appointment: Lita Barakattel: [address] [place], [place] [phone] [place] LAB 09/19/2012 Patient Education: Patient Medication Summary Completed 09/19/2012 Visit Plan: Check fasting lab in AM--CMP , Lipids, HbA1C 09/18/2012 Appointment: Lita Barakattel: [address] [place], [place] [phone] [place] FOLLOW UP 09/18/2012 Patient Education: Patient Medication Summary Completed 09/18/2012 Appointment: Lita Barakattel: [address] [place] [address] appt time scheduled sooner FOLLOW UP 09/05 Visit Plan: Doxycycline and Prednisone I ncrease SVN to QID Add back Symbicort 160/4.5 2 p BID 08/28/2012 Appointment: Lita Barakattel: [address] [place], [place] [phone] [place] FOLLOW UP 08/28/2012 Patient Education: Patient Medication Summary Completed 08/28/2012 Appointment: Lita Barakattel: [address] [place], [place] [phone] Annual Well Visit 07/10/2012 Patient Education: Patient Medication Summary Completed 07/10/2012 Visit Plan: Finish Z-pack Add Nasonex Ad d Meclizine Vestibular exercises Continue current meds and accuchecks Check lab and fwup in 4mos 05/09/2012 Appointment: Lita Barakattel: [address] [place], [place] [phone] number no longer works FOLLOW UP 2 Patient Education: Patient Medication Summary Completed 05/09/2012 Appointment: Lita Barakat WPtel: [address] [place], [place] [phone] [place] LAB 05/06/2012 Patient Education: Patient Medication Summary Completed 05/06/2012 Appointment: Lita Barakat WPtel: [address] [place], [place] [phone] [place] LAB 05/02/2012 Appointment: Lita Barakat WPtel: [address] [place], [place] [phone] [place] INJECTION 02/05/2012 Patient Education: Patient Medication Summary Completed 02/05/2012 Visit Plan: cefdinir. Will focus on rest and fluids. Pt. reports he is using breathing treatments as needed. Pt. will monitor for worsening symptoms or fever. 10/02/2011 Appointment: Kimberly Villalba WPtel: [address] [place] [address] ACUTE ILLNESS 10/02/2011 Patient Education: Patient Medication Summary Completed 10/02/2011 Appointment: Lita Barakat WPtel: [address] [place] [address] [place] INJECTION 08/10/2011 Patient Education: Patient Medication Summary Completed 08/10/2011 Visit Plan: Continue current meds Restar t Advair Restart exercise Flu shot given 08/07/2011 Appointment: Lita Barakat WPtel: [address] [place], [place] [phone] FOLLOW UP 08/07/2011 Patient Education: Patient Medication Summary Completed 08/07/2011 Appointment: Lita Barakat WPtel: [address] [place], [place] [phone] [place] LAB 07/26/2011 Patient Education: Patient Medication Summary Completed 07/26/2011 Visit Plan: ALEKSANDER Carmen Continue Metformin but change to BID Add Lantus 25u sc q PM BS readings in 1wk 04/03/2011 Appointment: Lita Barakat WPtel: [address] [place], [place] [phone] ACUTE ILLNESS 04/03/2011 Patient Education: Patient Medication Summary Completed 04/03/2011 Appointment: Lita Barakattel: [address] [place], [place] [phone] [place] INJECTION 01/19/2011 Patient Education: Patient Medication Summary Completed 01/19/2011 Appointment: Lita Barakat WPtel: [address] [place], [place] [phone] ACUTE ILLNESS 01/18/2011 Patient Education: Patient Medication Summary Completed 01/18/2011 Appointment: Lita Barakat WPtel: [address] [place] [phone] [place] INJECTION 12/21/2010 Patient Education: Patient Medication Summary Completed 12/21/2010 Appointment: Lita Barakat WPtel: [address] [place], [place] [phone] FOLLOW UP 12/19/2010 Patient Education: Patient Medication Summary Completed 12/19/2010 Appointment: Lita Barakat WPtel: [address] [place], [place] [phone] LAB 12/07/2010 Patient Education: Patient Medication Summary Completed 12/07/2010 Appointment: Kimberly Villalba WPtel: [address] [place], [place] [phone] ACUTE ILLNESS 04/05/2010 Patient Education: Patient Medication Summary Completed 04/05/2010 Appointment: Lita Barakat WPtel: [address] [place] [phone] [place] WORK IN 03/14/2010 Patient Education: Patient Medication Summary Completed 03/14/2010 Appointment: Lita Barakat WPtel: [address] [place], [place] [phone] [place] LAB 03/02/2010 Visit Plan: HbA1C in 3mos. Continue Accu checks BID alternating times. Switch lexapro to celexa 01/13/2010 Appointment: Lita Barakat WPtel: [address] [place], [place] [address] [place] FOLLOW UP 01/13/2010 Patient Education: Patient Medication Summary Completed 01/13/2010 Appointment: Lita Barakat WPtel: [address] [place], [place] [phone] FOLLOW UP 01/11/2010 Visit Plan: Pt. will continue the Avalox and Doxycycline regimen as prescribed the previous day. He has been advised to continue inhalers, breathing treatments and oxygen therapy for at least the weekend. Moderate activity without strenuous exercise. The pt. will seek immediate re-eval if his symptoms worsen. 12/23/2009 Appointment: Kimberly Villalba WPtel: [address] [place], [place] [phone] FOLLOW UP 12/23/2009 Patient Education: Patient Medication [...] tomorrow morning. 12/22/2009 Appointment: Kimberly Villalba WPtel: [address] [place], [place] [phone] ACUTE ILLNESS 12/22/2009 Patient Education: Patient Medication Summary Completed 12/22/2009 Appointment: Kimberly Villalba WPtel: [address] [place], [place] [phone] [place] FOLLOW UP 12/21/2009 Appointment: Lita Barakat WPtel: [address] [place], [place] [phone] [place] INJECTION 12/16/2009 Patient Education: Patient Medication Summary Completed 12/16/2009 Appointment: Kimberly Villalba WPtel: [address] [place], [place] [phone] ACUTE ILLNESS 12/13/2009 Patient Education: Patient Medication Summary Completed 12/13/2009 Care Plan: X-RAY EXAM OF SHOULDER lt shoulder (pain ra diates across the shoulder) Hand carried orders to [facility] LOINC : 58381-8 Ordered 12/13/2009 Care Plan: X-RAY EXAM THORAC SPINE 2VWS Hand carried order LOINC : 68016-2 Ordered 12/13/2009 Care Plan: X-RAY EXAM RIBS UNI 2 VIEWS Posterior ribs of lt. side Pt. hand carries order to [facility] LOINC : 17880-0 Ordered 12/13/2009 Referral: José Miguel Swanson WPtel: [address] [address] [place] Referral Appointment Requested Referral: José Miguel Swanson WPtel: [address] [address] [place] Referral Appointment Requested Referral: Chandu Quarles WPtel: [address] Quarles for screening colonoscopy. P atient notified that [facility] office will book appt with him Initiated Referral: Santosh Machado WPtel: [address] [place] [address] [place] Referral Appointment Requested Referral: José Miguel Swanson WPtel: [address] [address] [place] Referral Initiated Referral: Lopez Chacon [address] [facility] C&D [place] [address] [place] Referral Initiated Referral: Demetrius Benjamin WPtel: [address] [place] [address] [place] Referral Appointment Requested Referral: José Miguel Swanson WPtel: [address] [address] [place] Referral Appointment Requested Referral: José Miguel Swanson WPtel: [address] [address] [place] Referral Initiated Instructions Comment . Saline nasal flushes prn. Tylenol/Motr in prn headache. Notify if persists/symptoms worsening. . MRI at [facility] Hydrocodone 5.325 1 po q 4-6 [...]
--- OUTSIDE RECORDS SUMMARY | 2020-03-28 15:40 | XMS REPORT | CCD ---
Author Author Leandro Barakat D.O. 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 Name Role Phone Lita Barakat D.O., PP Unavailable CCM Unavailable Summary Purpose Interface Exchange Insurance Providers Payer name Policy type / Coverage type Covered alliance party ID Effective Begin Date Effective End Date [employer] MEDICARE Medicare Part B [id number] 2019 Unknown Family history Brother Diagnosis Age At Onset Cancer Unknown Father Diagnosis Age At Onset Heart disease Unknown Mother Diagnosis Age At Onset Heart disease Unknown Social History Social History Element Codes Description Effective Dates Tobacco history SNOMED CT: 4121048 Former smoker quit 15 years ago 08/07/2011 [...] 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: [...] Start Date Stop Date Status Fill Instructions pantoprazole 40 mg tablet,delayed release RxNorm: 925905 1 Tablet(s) Oral QD FOR STOMACH 03/22/2020 06/19/2020 Active Generic For:PROT ZENIA 40MG TAB EC 01/03/2019 1:23:44 PM losartan 100 mg tablet RxNorm: 699372 1TD 03/18/2020 05/16/2020 Active albuterol sulfate 2.5 mg/3 mL (0.083 %) solution for n ebulization RxNorm: 364436 USE 1 VIAL IN NEBULIZER EVERY FOUR HOURS NEEDED FOR WHEEZING OR SOB 03/09/2020 04/22/2020 Active Levemir FlexTouch U-100 Insulin 100 unit/mL (3 mL) sub cutaneous pen RxNorm: 958748 INJECT 20 UNITS SQ QD 02/26/2020 03/21/2020 Inactive losartan 100 mg tablet RxNorm: 149103 1TD 02/03/2020 03/17/2020 Inactive Sinemet CR 50 mg-200 mg tablet,extended release RxNorm: 8343 41 1 Tablet(s) Oral three times a day 02/02/2020 07/31/2020 Active Generic For:*S INEMET CR 50/200 TABLET SA 07/08/2018 3:09:11 PM hydrocodone 10 mg-acetaminophen 325 mg tablet RxNorm: 989788 1 Tablet(s) Oral Q4H as needed for pain 01/29/2020 No Stop Date Active ipratropium 0.5 mg-albuterol 3 mg (2.5 mg base)/3 mL n ebulization soln RxNorm: 5031588 USE 1 VIAL IN NEBULIZER Q4H (THIS REPLACES ALBUTEROL S OLUTION) 01/08/2020 02/06/2020 Inactive prednisone 20 mg tablet RxNorm: 302777 1 Tablet(s) Oral two remy es a day 12/25/2019 01/01/2020 Inactive Levemir FlexTouch U-100 Insulin 100 unit/mL (3 mL) sub cutaneous pen RxNorm: 352361 10 Unit(s) Subcutaneous every night at bedtime 12/22/2019 N o Stop Date Active baclofen 10 mg tablet RxNorm: 795495 1 Tablet(s) Oral QPM for p ain/spasm 12/22/2019 01/21/2020 Inactive ipratropium 0.5 mg-albuterol 3 mg (2.5 mg base)/3 mL n ebulization soln RxNorm: 4577163 USE 1 VIAL IN NEBULIZER Q4H (THIS REPLACES ALBUTEROL S OLUTION) 11/27/2019 12/16/2019 Inactive hydrocodone 10 mg-acetaminophen 325 mg tablet RxNorm: 696217 1 Tablet(s) Oral Q4H as needed for pain 11/13/2019 01/28/2020 Inactive Seroquel 50 mg tablet RxNorm: 546353 1 Tablet(s) Oral QPM as ne eded for sleep 10/07/2019 12/21/2019 Inactive ropinirole 4 mg tablet RxNorm: 219085 3 TABLET(S) BY [facility] DAILY AT BEDTIME FOR RESTLESS LEGS 09/29/2019 12/27/2019 Inactive Generic For:REQU IP 4 MG TABLET 09/29/2019 7:52:42 AM N O T I C E Last quantity doesn't match original quantity ropinirole 4 mg tablet RxNorm: 295338 3 TABLET(S) BY [facility] DAILY AT BEDTIME FOR RESTLESS LEGS 09/26/2019 09/28/2019 Inactive Generic For:REQU IP 4 MG TABLET 09/26/2019 9:08:48 AM N O T I C E Last quantity doesn't match original quantity ipratropium 0.5 mg-albuterol 3 mg (2.5 mg base)/3 mL n ebulization soln RxNorm: 4288551 USE 1 VIAL IN NEBULIZER EVERY FOUR HOURS (THIS REPLACES ALBUTEROL SOLUTION) 09/26/2019 10/15/2019 Inactive Generic For:*DUO NEB 2.5-0.5 MG/3 ML SOLN 09/26/2019 9:08:53 AM hydrocodone 10 mg-acetaminophen 325 mg tablet RxNorm: 939889 1 Tablet(s) Oral Q4H as needed for pain 09/09/2019 09/09/2019 Inactive hydrocodone 10 mg-acetaminophen 325 mg tablet RxNorm: 352790 1 Tablet(s) Oral Q4H as needed for pain 09/09/2019 09/08/2019 Inactive ondansetron HCl 4 mg tablet RxNorm: 042257 1 Tablet(s) Oral QPM for nausea 08/12/2019 10/10/2019 Inactive ipratropium 0.5 mg-albuterol 3 mg (2.5 mg base)/3 mL n ebulization soln RxNorm: 4587260 1 Unit Dose INH Q4H 08/12/2019 09/25/2019 Inactive replaces albuterol solution Augmentin 875 mg-125 mg tablet RxNorm: 851246 1 Tablet(s) Oral two times a day 08/07/2019 08/17/2019 Inactive prednisone 20 mg tablet RxNorm: 357243 1 Tablet(s) Oral QD 08/05/2008/04/2019 Inactive prednisone 20 mg tablet RxNorm: 334821 1 Tablet(s) Oral QD 08/05/2008/06/2019 Inactive Levaquin 500 mg tablet RxNorm: 018540 1 Tablet(s) Oral QD Replaces azithromycin (z-pack) 07/31/2019 08/05/2019 Inactive Levaquin 500 mg tablet RxNorm: 806587 1 Tablet(s) Oral QD Replaces azithromycin (z-pack) 07/21/2019 07/26/2019 Inactive Levaquin 500 mg tablet RxNorm: 097922 1 Tablet(s) Oral QD Replaces azithromycin (z-pack) 07/21/2019 07/20/2019 Inactive Zithromax Z-Gui 250 mg tablet RxNorm: 776122 Tablet(s) Oral 019 07/22/2019 Inactive Zithromax Z-Gui 250 mg tablet RxNorm: 212102 Tablet(s) Oral 019 07/15/2019 Inactive Symbicort 160 mcg-4.5 mcg/actuation HFA aerosol inhaler RxNo rm: 7698142 2 Puff(s) Inhalation two times a day 07/14/2019 07/14/2019 Inactive Tessalon Perles 100 mg capsule RxNorm: 177986 1 Capsule(s) Oral Q8H as needed 07/14/2019 08/06/2019 Inactive Seroquel 50 mg tablet RxNorm: 664727 1 Tablet(s) Oral QPM as ne eded for sleep 07/01/2019 10/06/2019 Inactive ondansetron HCl 4 mg tablet RxNorm: 835734 1 Tablet(s) Oral QPM for nausea 06/24/2019 07/24/2019 Inactive Seroquel 25 mg tablet RxNorm: 684582 1 Tablet(s) Oral every nig ht at bedtime 06/19/2019 06/18/2019 Inactive Seroquel 25 mg tablet RxNorm: 777162 1 Tablet(s) Oral every nig ht at bedtime 06/19/2019 06/30/2019 Inactive trazodone 150 mg tablet RxNorm: 598096 1/2 Tablet(s) PO QHS as needed for sleep 06/11/2019 06/17/2019 Inactive replaces PA on doxep in trazodone 150 mg tablet RxNorm: 865254 1/2 Tablet(s) PO QHS as needed for sleep 05/12/2019 06/11/2019 Inactive replaces PA on doxep in Vitamin D3 5,000 unit tablet RxNorm: 972143 1 Tablet(s) PO QD 05/09 No Stop Date Active magnesium oxide 400 mg (241.3 mg magnesium) tablet RxNorm: 1 31273 1 Tablet(s) PO QHS 05/09/2019 No Stop Date Active cyanocobalamin (vit B-12) 1,000 mcg/mL injection solution Rx Norm: 635200 1 injection weekly for 4 weeks 1 Milliliter(s) Inj 05/09/2019 12/21/2019 Inactive ferrous sulfate 325 mg (65 mg iron) tablet RxNorm: 191084 1 Tab let(s) PO QD 05/09/2019 12/21/2019 Inactive ropinirole 4 mg tablet RxNorm: 539984 3 TABLET(S) BY [facility] DAILY AT BEDTIME FOR RESTLESS LEGS 03/26/2019 06/23/2019 Inactive Generic For:REQU IP 4 MG TABLET 03/26/2019 11:23:36 AM N O T I C E Last quantity doesn't match original quantity hydroxyzine HCl 10 mg tablet RxNorm: 625704 1 Tablet(s) PO BID as needed 03/24/2019 04/06/2019 Inactive pantoprazole 40 mg tablet,delayed release RxNorm: 011687 Tablet(s) TAKE 1 TABLET BY MOUTH DAILY FOR STOMACH 03/24/2019 03/21/2020 Inactive Gener ic For:PROTONIX 40MG TAB EC 01/03/2019 1:23:44 PM ipratropium-albuterol 0.5 mg-3 mg(2.5 mg base)/3 mL ne bulization soln RxNorm: 4183600 1 Unit Dose INH Q4H 03/21/2019 No Stop Date Active replaces albuterol solution meclizine 12.5 mg tablet RxNorm: 100974 1 Tablet(s) PO BID as neede d 03/21/2019 12/21/2019 Inactive losartan 100 mg tablet RxNorm: 567372 1 Tablet(s) PO QD replace s lisinopril 03/13/2019 09/08/2019 Inactive fluconazole 100 mg tablet RxNorm: 102939 1 Tablet(s) PO QD 03/13/2003/19/2019 Inactive nystatin 100,000 unit/mL oral suspension RxNorm: 733680 5 Unit( s) PO QID 03/13/2019 03/26/2019 Inactive tramadol 50 mg tablet RxNorm: 994861 1 Tablet(s) PO TID as needed for pain TAKE 2 TABS OF EXTRA STRENGTH TYLENOL WITH EACH DOSE 03/10/2019 04/06/2019 Inactive Generic For:*ULTRAM 50 MG TABLET 01/15/2019 4:55:26 PM Sinemet CR 50 mg-200 mg tablet,extended release RxNorm: 8343 41 1 Tablet(s) PO TID 02/26/2019 08/24/2019 Inactive Generic For:*SIN EMET CR 50/200 TABLET SA 07/08/2018 3:09:11 PM trazodone 150 mg tablet RxNorm: 422184 1/2 Tablet(s) PO QHS as needed for sleep 02/13/2019 02/12/2019 Inactive trazodone 150 mg tablet RxNorm: 326914 1/2 Tablet(s) PO QHS as needed for sleep 02/13/2019 02/25/2019 Inactive replaces PA on doxep in doxepin 10 mg capsule RxNorm: 9465552 1-2 Capsule(s) PO QHS prn sleep 02/13/2019 02/13/2019 Inactive Novolog U-100 Insulin aspart 100 unit/mL subcutaneous soluti on RxNorm: 070312 INJECT 10 UNIT(S) SUBCUTANEOUSLY BEFORE MEALS 01/31/2019 05/30/2019 In active 01/31/2019 1:39:10 PM ipratropium-albuterol 0.5 mg-3 mg(2.5 mg base)/3 mL ne bulization soln RxNorm: 2699681 1 Unit Dose INH Q4H 01/17/2019 03/20/2019 Inactive replaces albuterol solution tramadol 50 mg tablet RxNorm: 880864 1 Tablet(s) PO TID as needed for pain TAKE 2 TABS OF EXTRA STRENGTH TYLENOL WITH EACH DOSE 01/15/2019 02/03/2019 Inactive Generic For:*ULTRAM 50 MG TABLET 01/15/2019 4:55:26 PM Sinemet CR 50 mg-200 mg tablet,extended release RxNorm: 8343 41 1 Tablet(s) PO BID 01/03/2019 02/25/2019 Inactive Generic For:*SIN EMET CR 50/200 TABLET SA 07/08/2018 3:09:11 PM losartan 100 mg tablet RxNorm: 522140 1 Tablet(s) PO QD replace s lisinopril 01/03/2019 03/12/2019 Inactive Symbicort 160 mcg-4.5 mcg/actuation HFA aerosol inhaler RxNo rm: 1171016 2 Puff(s) INH BID 01/03/2019 01/02/2019 Inactive pantoprazole 40 mg tablet,delayed release RxNorm: 007714 TAKE 1 TABLET BY MOUTH DAILY FOR STOMACH 01/03/2019 03/23/2019 Inactive Generic For:NV OTONIX 40MG TAB EC 01/03/2019 1:23:44 PM nystatin 100,000 unit/mL oral suspension RxNorm: 292875 Unit(s) 5 Unit(s) PO QID swish and spit 01/02/2019 11/11/2019 Inactive Incruse Ellipta 62.5 mcg/actuation powder for inhalation RxN orm: 0605727 1 Capsule(s) INH QD 12/25/2018 12/21/2019 Inactive Tessalon Perles 100 mg capsule RxNorm: 073322 1 Capsule(s) PO T ID for cough 12/25/2018 02/25/2019 Inactive Medrol (Gui) 4 mg tablets in a dose pack RxNorm: 683287 Tablet(s) PO Use as directed 12/23/2018 01/02/2019 Inactive Levemir FlexTouch U-100 Insulin 100 unit/mL (3 mL) sub cutaneous pen RxNorm: 678738 20 Unit(s) SQ QD with pen needles 12/13/2018 05/11/2019 Inactiv e prednisone 20 mg tablet RxNorm: 088843 1 Tablet(s) PO QD 12/12/2018 0 12/11/2018 Inactive prednisone 20 mg tablet RxNorm: 045820 1 Tablet(s) PO QD 12/12/2018 0 12/16/2018 Inactive promethazine 6.25 mg-codeine 10 mg/5 mL syrup RxNorm: 933581 5 Milliliter(s) PO QHS as needed for cough 12/09/2018 12/18/2018 Inactive cefdinir 300 mg capsule RxNorm: 137993 1 Capsule(s) PO BID 12/10/1912/18/2018 Inactive fluconazole 100 mg tablet RxNorm: 924029 1 Tablet(s) PO QD 12/06/1912/08/2018 Inactive ropinirole 4 mg tablet RxNorm: 051330 3 Tablet(s) PO QHS for re stless legs 12/04/2018 03/03/2019 Inactive Novolog U-100 Insulin aspart 100 unit/mL subcutaneous soluti on RxNorm: 257390 INJECT 10 UNIT(S) SUBCUTANEOUSLY BEFORE MEALS 12/04/2018 01/30/2019 In active 12/04/2018 10:02:42 AM nystatin 100,000 unit/mL oral suspension RxNorm: 109052 5 Unit(s) PO QID swish and spit 11/25/2018 12/18/2018 Inactive ropinirole 4 mg tablet RxNorm: 317751 3 Tablet(s) PO QHS for re stless legs 11/04/2018 12/03/2018 Inactive prednisone 20 mg tablet RxNorm: 454732 1 Tablet(s) PO BID 10/23/2018 10/29/2018 Inactive ropinirole 4 mg tablet RxNorm: 808946 3 Tablet(s) PO QHS for re stless legs 10/14/2018 11/04/2018 Inactive pantoprazole 40 mg tablet,delayed release RxNorm: 127086 1 Tablet(s) PO QD [facility] 10/10/2018 01/02/2019 Inactive Symbicort 160 mcg-4.5 mcg/actuation HFA aerosol inhaler RxNo rm: 9055023 2 Puff(s) INH BID 10/10/2018 01/03/2019 Inactive Novolog U-100 Insulin aspart 100 unit/mL subcutaneous soluti on RxNorm: 134859 INJECT 10 UNIT(S) SUBCUTANEOUSLY BEFORE MEALS 10/10/2018 12/03/2018 In active 10/10/2018 11:30:01 AM Sinemet CR 50 mg-200 mg tablet,extended release RxNorm: 8343 41 1 Tablet(s) PO BID 09/26/2018 01/03/2019 Inactive Generic For:*SIN EMET CR 50/200 TABLET SA 07/08/2018 3:09:11 PM ropinirole 4 mg tablet RxNorm: 278850 2 Tablet(s) PO QHS for re stless legs 09/18/2018 10/13/2018 Inactive metformin ER 1,000 mg tablet,extended release 24hr RxNorm: 1 701057 1 Tablet(s) PO BID 09/09/2018 12/18/2018 Inactive ropinirole 4 mg tablet RxNorm: 349975 2 Tablet(s) PO QHS for re stless legs 08/21/2018 09/17/2018 Inactive doxycycline hyclate 100 mg capsule RxNorm: 3087129 1 Capsule(s) PO BID 08/07/2018 08/13/2018 Inactive ropinirole 4 mg tablet RxNorm: 482441 1 Tablet(s) PO QHS replac es 1mg dose 08/07/2018 08/20/2018 Inactive ropinirole 2 mg tablet RxNorm: 935712 TAKE 3 TABLETS BY MOUTH DAILY AT BEDTIME DO NOT EXCEED 3 TABLETS PER DAY!!!! 07/31/2018 08/06/2018 Inactive Generic For:REQUIP 2 MG TABLET 07/30/2018 3:50:28 PM Symbicort 160 mcg-4.5 mcg/actuation HFA aerosol inhaler RxNo rm: 7595332 2 Puff(s) INH BID 07/12/2018 10/09/2018 Inactive Sinemet CR 50 mg-200 mg tablet,extended release RxNorm: 8343 41 TAKE 1 TABLET BY MOUTH TWICE DAILY 07/08/2018 09/26/2018 Inactive Generic For:*S INEMET CR 50/200 TABLET SA 07/08/2018 3:09:11 PM losartan 100 mg tablet RxNorm: 893661 1 Tablet(s) PO QD replace s lisinopril 06/17/2018 12/13/2018 Inactive Novolog U-100 Insulin aspart 100 unit/mL subcutaneous soluti on RxNorm: 069088 10 Unit(s) SQ AC 06/17/2018 10/09/2018 Inactive albuterol sulfate 2.5 mg/3 mL (0.083 %) solution for n ebulization RxNorm: 172389 Milliliter(s) INH USE 1 VIAL IN NEBULIZE R EVERY FOUR HOURS NEEDED FOR WHEEZING OR SHORTNESS OF BREATH 06/13/2018 01/16/2019 Inactive Generic For:*PROVENTIL 0.83 MG/ML SOLUTN 06/13/2013 2:04:46 PM ropinirole 2 mg tablet RxNorm: 721426 3 Tablet(s) PO QH S DO NOT EXCEED 6MG (3 TABLETS) PER DAY!!!! 06/13/2018 07/31/2018 Inactive atorvastatin 40 mg tablet RxNorm: 772487 Tablet(s) TAKE 1 TABLET BY MOUTH EVERY DAY 05/13/2018 12/18/2018 Inactive Generic For:LIPI TOR 40MG TAB 05/01/2018 8:37:31 AM Sinemet CR 50 mg-200 mg tablet,extended release RxNorm: 8343 41 1 Tablet(s) PO BID 05/08/2018 07/06/2018 Inactive Lidocaine Viscous 2 % mucosal solution RxNorm: 2171699 5 Milliliter(s) PO QID as needed 05/02/2018 08/06/2018 Inactive Diflucan 100 mg tablet RxNorm: 188236 1 Tablet(s) PO QD 05/02/2018 Inactive atorvastatin 40 mg tablet RxNorm: 859915 TAKE 1 TABLET BY MOUTH EVERY DAY 05/01/2018 05/13/2018 Inactive Generic For:LIPITOR 40MG TAB 05/01/2018 8:37:31 AM nystatin 100,000 unit/mL oral suspension RxNorm: 446094 5 Unit(s) PO QID (before meals and at bedtime) 04/24/2018 04/30/2018 Inactive Ventolin HFA 90 mcg/actuation aerosol inhaler RxNorm: 128339 2 Puff(s) INH Q4H as needed one inhaler for home and one inhaler for car 04/23/201812/18 Inactive Mucinex 600 mg tablet, extended release RxNorm: 751355 1 Tablet(s) PO BID for congestion 04/22/2018 05/21/2018 Inactive prednisone 10 mg tablet RxNorm: 198407 Tablet(s) PO as directeds 08/06/2018 Inactive ropinirole 2 mg tablet RxNorm: 409839 3 Tablet(s) PO QH S DO NOT EXCEED 6MG (3 TABLETS) PER DAY!!!! 04/09/2018 05/08/2018 Inactive gabapentin 300 mg capsule RxNorm: 772555 1-2 Capsule(s) PO QHS 02/201804/08/2018 Inactive ropinirole 2 mg tablet RxNorm: 900763 1 Tablet(s) PO QHS 03/28/2018 0 04/08/2018 Inactive gabapentin 300 mg capsule RxNorm: 815511 1-2 Capsule(s) PO QHS 02/2303/29/2018 Inactive gabapentin 300 mg capsule RxNorm: 349178 1-2 Capsule(s) PO QHS 02/2203/13/2018 Inactive gabapentin 300 mg capsule RxNorm: 139483 2 Capsule(s) PO QHS 201703/11/2018 Inactive ropinirole 2 mg tablet RxNorm: 550899 1 Tablet(s) PO QHS 02/28/2018 0 03/28/2018 Inactive ropinirole 2 mg tablet RxNorm: 532041 1 Tablet(s) PO QHS 02/28/2018 0 02/27/2018 Inactive gabapentin 300 mg capsule RxNorm: 778238 1 Capsule(s) PO QHS 201702/27/2018 Inactive pantoprazole 40 mg tablet,delayed release RxNorm: 804824 1 Table[facility]s) [facility] 01/23/2018 05/22/2018 Inactive Voltaren 1 % topical gel RxNorm: 035546 1 Gram(s) TOP QID to ri ght knee 01/23/2018 02/04/2018 Inactive metformin ER 500 mg tablet,extended release 24hr RxNorm: 860 975 2 Tablet(s) PO BID 01/09/2018 12/08/2018 Inactive Requip 1 mg tablet RxNorm: 823591 1 Tablet(s) PO QHS 01/09/201802/27 Inactive prednisone 20 mg tablet RxNorm: 441292 1 Tablet(s) PO T ID for 3 days then 1 po BID for 3 days then one daily for 3 days 01/02/2018 02/03/2018 Inactiv e Levaquin 500 mg tablet RxNorm: 581262 1 Tablet(s) PO QD 01/02/2018 Inactive ProAir HFA 90 mcg/actuation aerosol inhaler RxNorm: 216748 2 Puff(s) INH Q4H as needed 12/28/2017 No Stop Date Active please switch to ventolin if insurance doesn't cover montelukast 10 mg tablet RxNorm: 278493 1 Tablet(s) PO QD 12/28/2017 02/03/2018 Inactive Levaquin 500 mg tablet RxNorm: 550922 1 Tablet(s) PO QD 12/21/2017 Inactive ProAir HFA 90 mcg/actuation aerosol inhaler RxNorm: 332852 2 Puff(s) INH Q4H as needed 12/21/2017 12/27/2017 Inactive please switch to ventolin if insurance doesn't cover doxycycline hyclate 100 mg tablet RxNorm: 459482 1 Tablet(s) PO BID 12/17/2017 12/26/2017 Inactive Levemir FlexTouch U-100 Insulin 100 unit/mL (3 mL) sub cutaneous pen RxNorm: 539864 20 Unit(s) SQ QD with pen needles---Due for labs 12/11/2017 02/03/2018 Inactive Requip 1 mg tablet RxNorm: 295187 1 Tablet(s) PO QHS 12/10/201712/09 Inactive Requip 1 mg tablet RxNorm: 690588 1 Tablet(s) PO QHS 12/10/201701/09 Inactive albuterol sulfate 2.5 mg/3 mL (0.083 %) solution for n ebulization RxNorm: 771046 Milliliter(s) INH USE 1 VIAL IN NEBULIZE R EVERY FOUR HOURS NEEDED FOR WHEEZING OR SHORTNESS OF BREATH 12/05/2017 06/13/2018 Inactive Generic For:*PROVENTIL 0.83 MG/ML SOLUTN 06/13/2013 2:04:46 PM Tudorza Pressair 400 mcg/actuation breath activated RxNorm: 7198272 1 Puff(s) INH BID 12/03/2017 12/10/2017 Inactive Levemir FlexTouch U-100 Insulin 100 unit/mL (3 mL) sub cutaneous pen RxNorm: 209013 10 Unit(s) SQ QD with pen needles---Due for labs 11/16/2017 12/10/2017 Inactive Zofran ODT 4 mg disintegrating tablet RxNorm: 365115 1 Tablet(s) PO Q4H as needed for nausea 10/17/2017 02/04/2018 Inactive Efudex 5 % topical cream RxNorm: 085224 Application TOP QD prn to precancer skin lesions 10/17/2017 02/03/2018 Inactive Sinemet CR 50 mg-200 mg tablet,extended release RxNorm: 8343 41 1 Tablet(s) PO BID 10/17/2017 02/05/2018 Inactive Sinemet CR 50 mg-200 mg tablet,extended release RxNorm: 8343 41 1 Tablet(s) PO QHS 09/25/2017 10/16/2017 Inactive gabapentin 600 mg tablet RxNorm: 491081 1 Tablet(s) PO BID 08/15/20 17 08/14/2017 Inactive gabapentin 600 mg tablet RxNorm: 928679 1 Tablet(s) PO BID 08/15/20 17 12/10/2017 Inactive Novolog U-100 Insulin aspart 100 unit/mL subcutaneous soluti on RxNorm: 124289 10 Unit(s) SQ AC 08/15/2017 02/03/2018 Inactive Novolog 100 unit/mL subcutaneous solution RxNorm: 312981 10 Uni t(s) SQ AC 08/13/2017 08/14/2017 Inactive prednisone 20 mg tablet RxNorm: 446972 2 Tablet(s) PO QD 08/02/201710/04/2016 Inactive gabapentin 600 mg tablet RxNorm: 097293 Tablet(s) 1 Tab let(s) PO QHS replaces 300mg dose 07/09/2017 08/14/2017 Inactive Breo Ellipta 100 mcg-25 mcg/dose powder for inhalation RxNor m: 4501282 1 Unit Dose INH QD 07/02/2017 08/30/2017 Inactive Tudorza Pressair 400 mcg/actuation breath activated RxNorm: 4268075 1 Puff(s) INH BID 06/18/2017 12/02/2017 Inactive gabapentin 600 mg tablet RxNorm: 544128 1 Tablet(s) PO QHS repl aces 300mg dose 06/14/2017 07/08/2017 Inactive metformin ER 1,000 mg tablet,extended release 24hr RxNorm: 1 642597 1 Tablet(s) PO BID 05/29/2017 01/08/2018 Inactive cyclobenzaprine 5 mg tablet RxNorm: 314440 1 Tablet(s) PO TID 05/2906/07/2017 Inactive metformin ER 1,000 mg tablet,extended release 24hr RxNorm: 8 35140 1 Tablet(s) PO BID 05/25/2017 05/28/2017 Inactive metformin ER 1,000 mg tablet,extended release 24hr RxNorm: 8 44554 1 Tablet(s) PO BID 05/22/2017 05/24/2017 Inactive Amaryl 2 mg tablet RxNorm: 935407 1 Tablet(s) PO BID 05/01/201702/03 Inactive glimepiride 2 mg tablet RxNorm: 152656 1 Tablet(s) PO BID 04/19/2017 02/03/2018 Inactive ferrous sulfate 325 mg (65 mg iron) tablet RxNorm: 402784 1 Tab let(s) PO QHS 04/17/2017 02/03/2018 Inactive Requip 4 mg tablet RxNorm: 950697 1 Tablet(s) PO BID 04/12/201704/11 Inactive Requip 4 mg tablet RxNorm: 979412 1 Tablet(s) PO BID 04/12/201704/15 Inactive Levemir FlexTouch 100 unit/mL (3 mL) subcutaneous insulin pe n RxNorm: 161393 10 Unit(s) SQ QD with pen needles---Due for labs 04/05/2017 11/15/2017 In active Silenor 3 mg tablet RxNorm: 495534 1 Tablet(s) PO QHS 04/05/201709/25 Inactive ropinirole 4 mg tablet RxNorm: 362109 1 Tablet(s) PO QHS 03/29/2017 0 04/01/2017 Inactive ropinirole 4 mg tablet RxNorm: 459090 1 Tablet(s) PO QHS 03/29/2017 0 03/28/2017 Inactive Requip 4 mg tablet RxNorm: 745072 1 Tablet(s) PO QHS 03/28/201704/01 Inactive gabapentin 600 mg tablet RxNorm: 135205 1 Tablet(s) PO QHS repl aces 300mg dose 03/28/2017 04/15/2017 Inactive Requip 4 mg tablet RxNorm: 630753 1 Tablet(s) PO QHS 03/23/201703/27 Inactive gabapentin 600 mg tablet RxNorm: 575053 1 Tablet(s) PO QHS 03/13/20 17 03/12/2017 Inactive gabapentin 600 mg tablet RxNorm: 553564 1 Tablet(s) PO QHS 03/13/20 17 03/27/2017 Inactive gabapentin 300 mg capsule RxNorm: 593329 1 Capsule(s) PO QPM 201603/12/2017 Inactive Generic For:NEURONTIN 300 MG CAPSULE 01/22/2017 10:10:39 AM losartan 100 mg tablet RxNorm: 898354 1 Tablet(s) PO QD replace s lisinopril 02/21/2017 06/17/2018 Inactive gabapentin 300 mg capsule RxNorm: 993050 TAKE 1 CAPSULE BY MOUT H EVERY EVENING 01/22/2017 02/21/2017 Inactive Generic For:NEURONTI N 300 MG CAPSULE 01/22/2017 10:10:39 AM gabapentin 300 mg capsule RxNorm: 366127 1 Capsule(s) PO QPM 201601/21/2017 Inactive Requip 4 mg tablet RxNorm: 741206 1 Tablet(s) PO QHS 12/21/201603/20 Inactive Effient 10 mg tablet RxNorm: 435793 1 Tablet(s) PO QD 12/12/201612/23 Inactive gabapentin 300 mg capsule RxNorm: 228247 1 Capsule(s) PO QPM 201612/03/2016 Inactive gabapentin 300 mg capsule RxNorm: 134139 1 Capsule(s) PO QPM 201612/13/2016 Inactive Requip 4 mg tablet RxNorm: 619516 1 Tablet(s) PO QHS 11/28/201612/21 Inactive atorvastatin 40 mg tablet RxNorm: 016850 Tablet(s) 1 Tablet(s) PO Q D 11/22/2016 08/18/2017 Inactive atorvastatin 40 mg tablet RxNorm: 192738 1 Tablet(s) PO QD 11/23/19 17 11/21/2016 Inactive ropinirole 1 mg tablet RxNorm: 590761 2.5 Tablet(s) PO QPM for legs/sleep 11/14/2016 11/27/2016 Inactive nystatin 100,000 unit/mL oral suspension RxNorm: 642841 5 Unit(s) PO QID swish and spit 10/31/2016 02/03/2018 Inactive fluconazole 100 mg tablet RxNorm: 516021 1 Tablet(s) PO QD 10/31/19 17 11/09/2016 Inactive doxycycline hyclate 100 mg capsule RxNorm: 5359439 1 Capsule(s) PO BID 10/03/2016 10/12/2016 Inactive Levemir FlexTouch 100 unit/mL (3 mL) subcutaneous insulin pe n RxNorm: 489445 10 Unit(s) SQ QD with pen needles 09/18/2016 04/04/2017 Inactive amitriptyline 25 mg tablet RxNorm: 557071 1 Tablet(s) P O QHS as needed for sleep 09/04/2016 10/17/2016 Inactive ropinirole 1 mg tablet RxNorm: 150643 1.5 Tablet(s) PO QPM for legs/sleep 09/04/2016 11/13/2016 Inactive amitriptyline 25 mg tablet RxNorm: 203787 1 Tablet(s) P O QHS as needed for sleep 08/22/2016 09/03/2016 Inactive clopidogrel 75 mg tablet RxNorm: 273632 1 Tablet(s) PO QD 08/10/2016 10/17/2016 Inactive Zoloft 100 mg tablet RxNorm: 730705 2 Tablet(s) PO QHS 08/10/2016 Inactive atorvastatin 40 mg tablet RxNorm: 135599 1 Tablet(s) PO QD 08/10/2010/17/2016 Inactive ropinirole 1 mg tablet RxNorm: 168165 1 Tablet(s) PO QPM for le gs/sleep 08/10/2016 09/03/2016 Inactive losartan 100 mg tablet RxNorm: 300172 1 Tablet(s) PO QD replace s lisinopril 07/20/2016 02/21/2017 Inactive Zofran 4 mg tablet RxNorm: 269368 1 Tablet(s) PO Q4H as needed for nausea 07/06/2016 10/17/2016 Inactive Flagyl 500 mg tablet RxNorm: 791913 1 Tablet(s) PO TID 07/06/2016 Inactive Plavix 75 mg tablet RxNorm: 635105 1 Tablet(s) PO QD 06/08/201607/05 Inactive isosorbide mononitrate ER 30 mg tablet,extended release 24 h r RxNorm: 469829 1 Tablet(s) PO QAM 06/08/2016 08/09/2016 Inactive atorvastatin 40 mg tablet RxNorm: 419488 1 Tablet(s) PO QD 06/08/20 16 08/09/2016 Inactive hydrochlorothiazide 12.5 mg tablet RxNorm: 361402 1 Tablet(s) PO QA M 06/08/2016 07/05/2016 Inactive metformin ER 1,000 mg tablet,extended release 24hr RxNorm: 8 67239 1 Tablet(s) PO BID 06/08/2016 09/05/2016 Inactive metoprolol tartrate 25 mg tablet RxNorm: 528643 1/2 Tablet(s) PO BI D 06/08/2016 08/09/2016 Inactive Zoloft 100 mg tablet RxNorm: 170829 2 Tablet(s) PO QHS 04/03/2016 Inactive metformin ER 1,000 mg tablet,extended release 24hr RxNorm: 8 80215 Tablet(s) 1 Tablet(s) PO QD 03/30/2016 12/18/2018 Inactive Levemir FlexTouch 100 unit/mL (3 mL) subcutaneous insulin pe n RxNorm: 089715 10 Unit(s) SQ QD 03/09/2016 03/08/2016 Inactive Levemir FlexTouch 100 unit/mL (3 mL) subcutaneous insulin pe n RxNorm: 202737 10 Unit(s) SQ QD with pen needles 03/09/2016 03/20/2016 Inactive Mobic 15 mg tablet RxNorm: 139384 1 Tablet(s) PO QD for foot pain 0 02/17/2016 03/17/2016 Inactive Zoloft 100 mg tablet RxNorm: 235451 1 1/2 Tablet(s) PO QHS 01/31/20 16 04/02/2016 Inactive omeprazole 20 mg capsule,delayed release RxNorm: 271640 TAKE 2 CAPSULES BY MOUTH EVERY DAY 01/12/2016 08/09/2016 Inactive Generic For:*CHERYL LOSEC 20 MG CAPSULE 01/12/2016 8:58:34 AM Zoloft 100 mg tablet RxNorm: 611577 1/2 Tablet(s) PO QH S for 1 week then 1 tablet po q HS 12/30/2015 01/27/2016 Inactive Ventolin HFA 90 mcg/actuation aerosol inhaler RxNorm: 502368 2 Puff(s) INH QID as needed for shortness of breath 12/30/2015 02/03/2018 Inactive [AttnRPh: Saving apply/adjudicate RxGRP:SG20 RxBIN:[id number] RxPCN: ID#:[id number]] metformin ER 1,000 mg tablet,extended release 24hr RxNorm: 8 92268 1 Tablet(s) PO QD 12/20/2015 03/18/2016 Inactive clindamycin 300 mg capsule RxNorm: 024727 1 Capsule(s) PO TID 12/0512/15/2015 Inactive mupirocin 2 % topical cream RxNorm: 755626 TOP to facial lesion s twice daily 11/15/2015 12/15/2015 Inactive cefdinir 300 mg capsule RxNorm: 502980 1 Capsule(s) PO BID 11/15/19 16 11/24/2015 Inactive Medrol (Gui) 4 mg tablets in a dose pack RxNorm: 222142 Tablet(s) PO as directed 10/11/2015 12/15/2015 Inactive albuterol sulfate 2.5 mg/3 mL (0.083 %) solution for n ebulization RxNorm: 811789 INH USE 1 VIAL IN NEBULIZER EVERY FOUR H OURS NEEDED FOR WHEEZING OR SHORTNESS OF BREATH 10/05/2015 10/04/2015 Inactive Generic For:*PRO VENTIL 0.83 MG/ML SOLUTN 06/13/2013 2:04:46 PM doxycycline hyclate 100 mg capsule RxNorm: 4699408 1 Capsule(s) PO BID 10/05/2015 10/14/2015 Inactive albuterol sulfate 2.5 mg/3 mL (0.083 %) solution for n ebulization RxNorm: 117320 Milliliter(s) INH USE 1 VIAL IN NEBULIZE R EVERY FOUR HOURS NEEDED FOR WHEEZING OR SHORTNESS OF BREATH Dx: J44.9 10/05/2015 12/05/2017 Inacti ve Generic For:*PROVENTIL 0.83 MG/ML SOLUTN 06/13/2013 2:04:46 PM albuterol sulfate 2.5 mg/3 mL (0.083 %) solution for n ebulization RxNorm: 817361 3 Milliliter(s) INH USE 1 VIAL IN NEBULI ZER EVERY FOUR HOURS NEEDED FOR WHEEZING OR SHORTNESS OF BREATH 09/06/2015 10/04/2015 Inactive Generic For:*PROVENTIL 0.83 MG/ML SOLUTN 06/13/2013 2:04:46 PM Tradjenta 5 mg tablet RxNorm: 9762587 2 Tablet(s) PO QD 07/22/2015 Inactive albuterol sulfate 2.5 mg/3 mL (0.083 %) solution for n ebulization RxNorm: 124389 3 Milliliter(s) INH USE 1 VIAL IN NEBULI ZER EVERY FOUR HOURS NEEDED FOR WHEEZING OR SHORTNESS OF BREATH 06/29/2015 09/05/2015 Inactive Generic For:*PROVENTIL 0.83 MG/ML SOLUTN 06/13/2013 2:04:46 PM albuterol sulfate 2.5 mg/3 mL (0.083 %) solution for n ebulization RxNorm: 158755 Milliliter(s) INH USE 1 VIAL IN NEBULIZE R EVERY FOUR HOURS NEEDED FOR WHEEZING OR SHORTNESS OF BREATH 06/29/2015 12/04/2017 Inactive Generic For:*PROVENTIL 0.83 MG/ML SOLUTN 06/13/2013 2:04:46 PM doxycycline hyclate 100 mg tablet RxNorm: 221881 1 Tablet(s) PO BID 06/28/2015 07/07/2015 Inactive losartan 100 mg tablet RxNorm: 764109 1 Tablet(s) PO QD -replac es lisinopril 06/14/2015 09/05/2015 Inactive metformin ER 1,000 mg tablet,extended release 24hr RxNorm: 8 97192 1 Tablet(s) PO QD 06/14/2015 09/11/2015 Inactive losartan 100 mg tablet RxNorm: 842812 1 Tablet(s) PO QD -replac es lisinopril 06/14/2015 12/10/2015 Inactive Zocor 20 mg tablet RxNorm: 546408 Tablet(s) Tablet(s) 1 Tablet(s) PO QD -needs lipids labs 06/14/2015 06/14/2015 Inactive atorvastatin 40 mg tablet RxNorm: 671078 1 Tablet(s) PO QD repl aces simvastatin 06/14/2015 12/10/2015 Inactive loratadine 10 mg tablet RxNorm: 337941 Tablet(s) 1 Tablet(s) PO QD for drainage 06/14/2015 06/07/2016 Inactive Celexa 40 mg tablet RxNorm: 829402 1 Tablet(s) PO QD TA KE ONE (1) TABLET BY MOUTH DAILY 06/14/2015 12/29/2015 Inactive Generic For:HARJINDER XA 40 MG TABLET clindamycin 300 mg capsule RxNorm: 843043 2 Capsule(s) PO BID 06/0306/12/2015 Inactive metformin ER 1,000 mg tablet,extended release 24hr RxNorm: 8 76158 1 Tablet(s) PO QD 06/03/2015 06/02/2015 Inactive metformin ER 1,000 mg tablet,extended release 24hr RxNorm: 8 97273 1 Tablet(s) PO QD 06/03/2015 06/13/2015 Inactive mupirocin 2 % topical ointment RxNorm: 054072 TOP apply to open lesion of knee twice daily 06/03/2015 01/30/2016 Inactive Zocor 20 mg tablet RxNorm: 561449 Tablet(s) 1 Tablet(s ) PO QD -needs lipids labs 05/13/2015 06/13/2015 Inactive Celexa 40 mg tablet RxNorm: 501687 1 Tablet(s) PO QD TA KE ONE (1) TABLET BY MOUTH DAILY 05/13/2015 06/13/2015 Inactive Generic For:HARJINDER XA 40 MG TABLET Zocor 20 mg tablet RxNorm: 021011 Tablet(s) 1 Tablet(s ) PO QD -needs lipids labs 02/23/2015 03/24/2015 Inactive loratadine 10 mg tablet RxNorm: 076588 1 Tablet(s) PO QD for dr saenz 12/24/2014 06/13/2015 Inactive Zocor 20 mg tablet RxNorm: 732305 1 Tablet(s) PO QD -needs lipi ds labs 11/17/2014 02/23/2015 Inactive Celexa 40 mg tablet RxNorm: 358801 1 Tablet(s) PO QD 1 Tablet(s) PO QD 1 Tablet(s) PO QD Generic OKAY 11/11/2014 05/13/2015 Inactive Zocor 20 mg tablet RxNorm: 374577 1 Tablet(s) PO QD -needs lipi ds labs 11/11/2014 11/16/2014 Inactive omeprazole 20 mg capsule,delayed release RxNorm: 381754 2 Capsule(s) PO QD TAKE 2 CAPSULES BY MOUTH DAILY 10/27/2014 04/24/2015 Inactive Generi c For:*PRILOSEC 20 MG CAPSULE trazodone 50 mg tablet RxNorm: 662356 1 1/2 Tablet(s) PO QHS 201412/29/2015 Inactive losartan 100 mg tablet RxNorm: 943984 1 Tablet(s) PO QD -replac es lisinopril 10/26/2014 04/23/2015 Inactive Levaquin 500 mg tablet RxNorm: 337176 1 Tablet(s) PO QD 10/08/2014 Inactive Levaquin 500 mg tablet RxNorm: 411472 1 Tablet(s) PO QD 10/08/2014 Inactive Diflucan 100 mg tablet RxNorm: 601845 1 Tablet(s) PO QD 10/06/2014 Inactive DuoNeb 0.5 mg-3 mg(2.5 mg base)/3 mL solution for nebulizati on RxNorm: 0056342 3 Milliliter(s) INH QID 09/23/2014 08/09/2016 Inactive Ventolin HFA 90 mcg/actuation aerosol inhaler RxNorm: 974990 2 Puff(s) INH QID as needed for shortness of breath 09/21/2014 12/29/2015 Inactive [AttnRPh: Saving apply/adjudicate RxGRP:SG20 RxBIN:[id number] RxPCN: ID#:[id number]] promethazine-codeine 6.25 mg-10 mg/5 mL syrup RxNorm: 062633 1 Teaspoon(s) PO QHS as needed for cough 09/08/2014 09/20/2014 Inactive prednisone 20 mg tablet RxNorm: 624114 1 Tablet(s) PO BID 09/02/2014 09/08/2014 Inactive promethazine-codeine 6.25 mg-10 mg/5 mL syrup RxNorm: 523654 1 Teaspoon(s) PO Q4H 09/02/2014 09/20/2014 Inactive doxycycline monohydrate 100 mg capsule RxNorm: 072446 1 Capsule (s) PO BID 09/02/2014 09/07/2014 Inactive Tessalon Perles 100 mg capsule RxNorm: 836132 1 Capsule (s) PO TID as needed for cough 08/31/2014 09/20/2014 Inactive Actos 15 mg tablet RxNorm: 550569 1 Tablet(s) PO QAM 1 Tablet(s ) PO QAM 08/26/2014 09/20/2014 Inactive loratadine 10 mg tablet RxNorm: 223322 1 Tablet(s) PO QD for dr saenz 08/26/2014 10/26/2014 Inactive Zithromax 500 mg tablet RxNorm: 251291 1 Tablet(s) PO QD 08/25/2014 1 11/01/2013 Inactive Zithromax 500 mg tablet RxNorm: 913136 1 Tablet(s) PO QD 08/25/2014 1 10/25/2013 Inactive Trazadone 75mg Tablet RxNorm: 1 Tablet(s) PO QHS 08/10/20142018 Inactive Zocor 20 mg tablet RxNorm: 898561 1 Tablet(s) PO QD 08/10/20142014 Inactive Trazadone 75mg Tablet RxNorm: 1 Tablet(s) PO QHS as need ed for sleep 08/10/2014 10/08/2014 Inactive Celexa 40 mg tablet RxNorm: 191780 1 Tablet(s) PO QD 1 Tablet(s) PO QD 1 Tablet(s) PO QD Generic OKAY 06/09/2014 10/06/2014 Inactive Actos 15 mg tablet RxNorm: 474361 1 Tablet(s) PO QAM 05/12/201408/26 Inactive lisinopril 20 mg tablet RxNorm: 577633 1 Tablet(s) PO QD 05/12/2014 0 10/26/2014 Inactive TAKE ONE TABLET BY MOUTH EVERY DAY;Gener ic For:*PRINIVIL 20 MG TABLET [AttnRPh: Saving apply/adjudicate RxGRP:SG20 RxBIN:[id number] RxPCN: ID#:[id number]] hydrocodone 5 mg-acetaminophen 325 mg tablet RxNorm: 105882 1 Tablet(s) PO TID as needed for pain for severe pain 04/30/2014 08/09/2014 Inactive hydrocodone 5 mg-acetaminophen 325 mg tablet RxNorm: 004471 1 Tablet(s) PO TID as needed for pain for severe pain 04/17/2014 04/29/2014 Inactive doxycycline hyclate 100 mg capsule RxNorm: 740948 1 Capsule(s) PO BID 03/05/2014 03/04/2014 Inactive doxycycline hyclate 100 mg capsule RxNorm: 789929 1 Capsule(s) PO BID 03/05/2014 03/14/2014 Inactive albuterol sulfate 2.5 mg/3 mL (0.083 %) solution for n ebulization RxNorm: 128396 Milliliter(s) INH USE 1 VIAL IN NEBULIZE R EVERY FOUR HOURS NEEDED FOR WHEEZING OR SHORTNESS OF BREATH 03/02/2014 06/29/2015 Inactive Generic For:*PROVENTIL 0.83 MG/ML SOLUTN 06/13/2013 2:04:46 PM Celexa 40 mg tablet RxNorm: 314389 1 Tablet(s) PO QD 1 Tablet(s) PO QD replaces lexapro. Generic OKAY 01/13/2014 06/09/2014 Inactive Actos 15 mg tablet RxNorm: 069695 1 Tablet(s) PO QAM 01/07/201405/12 Inactive lisinopril 20 mg tablet RxNorm: 695027 1 Tablet(s) PO QD 12/08/2013 0 05/12/2014 Inactive TAKE ONE TABLET BY MOUTH EVERY DAY;Gener ic For:*PRINIVIL 20 MG TABLET cefdinir 300 mg capsule RxNorm: 834820 2 Capsule(s) PO QD 11/10/2013 08/09/2014 Inactive cefdinir 300 mg capsule RxNorm: 474643 2 Capsule(s) PO QD 10/09/2013 10/15/2013 Inactive Actos 15 mg tablet RxNorm: 687566 1 Tablet(s) PO QAM 10/09/201301/06 Inactive doxycycline hyclate 100 mg capsule RxNorm: 2861639 1 Capsule(s) PO Q12H 09/18/2013 09/27/2013 Inactive omeprazole 20 mg capsule,delayed release RxNorm: 110309 2 Capsule(s) PO QD TAKE 2 CAPSULES BY MOUTH DAILY 09/03/2013 03/01/2014 Inactive Generi c For:*PRILOSEC [address] Celexa 40 mg tablet RxNorm: 354964 1 Tablet(s) PO QD re places lexapro. Generic OKAY 09/03/2013 01/13/2014 Inactive Symbicort 160 mcg-4.5 mcg/actuation HFA aerosol inhaler RxNo rm: 2605955 2 Puff(s) INH BID 08/13/2013 03/23/2014 Inactive metformin 1,000 mg tablet RxNorm: 528723 1 Tablet(s) PO BID 08/12/2013 Inactive TAKE ONE TABLET BY MOUTH TWI CE DAILY;Generic For:GLUCOPHAGE 1,000 MG TABLET 08/27/12 Thank you Actos 15 mg tablet RxNorm: 120633 1 Tablet(s) PO QAM 06/23/201310/09 Inactive lisinopril 20 mg tablet RxNorm: 788444 1 Tablet(s) PO QD 06/23/2013 0 12/08/2013 Inactive TAKE ONE TABLET BY MOUTH EVERY DAY;Gener ic For:*PRINIVIL 20 MG TABLET albuterol sulfate 2.5 mg/3 mL (0.083 %) solution for n ebulization RxNorm: 514571 Solution for Nebulization INH USE 1 VIAL IN NEBULIZER EVERY FOUR HOURS NEEDED FOR WHEEZING OR SHORTNESS OF BREATH 06/16/2013 03/01/2014 Inactive Generic For:*PROVENTIL 0.83 MG/ML SOLUTN 06/13/2013 2:04:46 PM prednisone 10 mg tablet RxNorm: 178378 1 Tablet(s) PO BID 04/09/2013 04/13/2013 Inactive AndroGel 1.25 gram/actuation (1%) Transdermal Gel Pump RxNorm: 2 14517 TD 04/09/2013 08/09/2014 Inactive APPLY 4 PUMPS OF GEL AT BEDTIME DIRECTED;WC (Appended: Controlled substance eRx refill - RxReferenceNumber: [id number]) azithromycin 250 mg tablet RxNorm: 033525 2 Tablet(s) PO QD 013 04/16/2013 Inactive Amaryl 2 mg tablet RxNorm: 695882 1 Tablet(s) PO BID N eeds appt in 1 month (around March 21) 02/18/2013 08/12/2013 Inactive Amaryl 2 mg tablet RxNorm: 564889 1 Tablet(s) PO BID 02/18/201302/17 Inactive metformin 1,000 mg tablet RxNorm: 752834 1 Tablet(s) PO BID 013 07/27/2013 Inactive TAKE ONE TABLET BY MOUTH TWI CE DAILY;Generic For:GLUCOPHAGE 1,000 MG TABLET 08/27/12 Thank you Actos 15 mg tablet RxNorm: 193713 1 Tablet(s) PO QAM 02/04/201306/03 Inactive albuterol sulfate 2.5 mg/3 mL (0.083 %) Neb Solution RxNorm: 227834 1 Unit Dose INH Q4H prn wheezing or shortness of breath 01/30/2013 06/15/2013 Inac tive Medrol (Gui) 4 mg tablets in a dose pack RxNorm: 167655 Tablet(s) PO as directed 01/20/2013 07/15/2013 Inactive cefdinir 300 mg capsule RxNorm: 535681 1 Capsule(s) PO BID anti biotic 01/20/2013 01/29/2013 Inactive lisinopril 20 mg tablet RxNorm: 768848 Tablet(s) PO 01/13/20132012 Inactive TAKE ONE TABLET BY MOUTH EVERY DAY;Gener ic For:*PRINIVIL 20 MG TABLET citalopram 40 mg tablet RxNorm: 118316 Tablet(s) PO 01/13/20132013 Inactive TAKE ONE (1) TABLET BY MOUTH DAILY;Gener ic For:CELEXA 40 MG TABLET omeprazole 20 mg capsule,delayed release RxNorm: 927705 Capsule(s) PO TAKE 2 CAPSULES BY MOUTH DAILY 11/15/2012 09/03/2013 Inactive Generic For:*PRILOSEC [address] amoxicillin 875 mg tablet RxNorm: 782924 1 Tablet(s) PO BID 013 10/28/2012 Inactive Actos 30 mg tablet RxNorm: 483684 1 Tablet(s) PO QD 09/23/20122011 Inactive Actos 15 mg tablet RxNorm: 604383 1 Tablet(s) PO QAM 09/23/201209/22 Inactive Actos 15 mg tablet RxNorm: 836853 1 Tablet(s) PO QAM 09/23/201202/04 Inactive prednisone 20 mg tablet RxNorm: 917697 1 Tablet(s) PO BID 08/28/2012 09/03/2012 Inactive doxycycline hyclate 100 mg tablet RxNorm: 0132535 1 Tablet(s) PO BI D 08/28/2012 09/06/2012 Inactive metformin 1,000 mg tablet RxNorm: 079636 Tablet(s) PO 08/27/201201/22 Inactive TAKE ONE TABLET BY MOUTH TWICE DAILY;Gen joshua For:GLUCOPHAGE 1,000 MG TABLET 08/27/12 Thank you citalopram 40 mg tablet RxNorm: 624312 Tablet(s) PO 07/30/20122012 Inactive TAKE ONE (1) TABLET BY MOUTH DAILY;Gener ic For:CELEXA 40 MG TABLET lisinopril 20 mg tablet RxNorm: 107016 Tablet(s) PO 07/30/20122012 Inactive TAKE ONE TABLET BY MOUTH EVERY DAY;Gener ic For:*PRINIVIL 20 MG TABLET AndroGel 1.25 gram/actuation (1%) Transdermal Gel Pump RxNor m: [id number] Gel in Metered-Dose Pump TD 07/09/2012 04/08/2013 Inactive APPLY 4 PUM PS OF GEL AT BEDTIME DIRECTED; (Appended: Controlled substance eRx refill - RxReferenceNumber: [id number]) citalopram 40 mg tablet RxNorm: 246509 Tablet(s) PO 07/01/20122011 Inactive TAKE ONE (1) TABLET BY MOUTH DAILY;Gener ic For:CELEXA 40 MG TABLET metformin 1,000 mg tablet RxNorm: 704716 1 Tablet(s) PO BID 012 08/25/2012 Inactive TAKE 1 TABLET BY MOUTH TWICE DAILY;Generic For:GLUCOPHAGE 1,000 MG TABLET meclizine 25 mg Tab RxNorm: 520749 1 Tablet(s) PO QID prn dizziness 05/09/2012 05/18/2012 Inactive lisinopril 20 mg tablet RxNorm: 725005 Tablet(s) PO QD 04/22/2012 Inactive TAKE ONE (1) TABLET BY MOUTH DAILY;Gener ic For:*PRINIVIL 20 MG TABLET metformin 1,000 mg tablet RxNorm: 362813 Tablet(s) PO 03/19/201212/2011 Inactive TAKE 1 TABLET BY MOUTH TWICE DAILY;Gener ic For:GLUCOPHAGE 1,000 MG TABLET cefdinir 300 mg Cap RxNorm: 696792 1 Capsule(s) PO BID 11/28/2011 Inactive cefdinir 300 mg Cap RxNorm: 998955 1 Capsule(s) PO BID 11/01/2011 Inactive citalopram 40 mg tablet RxNorm: 051824 Tablet(s) PO 10/30/20112011 Inactive TAKE ONE (1) TABLET BY MOUTH DAILY;Gener ic For:CELEXA 40 MG TABLET cefdinir 300 mg Cap RxNorm: 346615 1 Capsule(s) PO BID 10/02/2011 Inactive metformin 1,000 mg Tab RxNorm: 580847 1 Tablet(s) PO BID 09/28/2011 0 01/25/2012 Inactive citalopram 40 mg Tab RxNorm: 957279 1 Tablet(s) PO QD 09/28/201111/2011 Inactive omeprazole 20 mg capsule,delayed release RxNorm: 285639 2 Capsu le(s) PO QD 09/28/2011 03/25/2012 Inactive lisinopril 20 mg Tab RxNorm: 698128 Tablet(s) PO 08/21/2011 04/21/2012 Inactive TAKE ONE (1) TABLET BY MOUTH DAILY;Generic For:*PRINIVIL 20 MG TABLET AndroGel 1.25 gram/actuation (1%) Transdermal Gel Pump RxNor m: [id number] Gel in Metered-dose Pump TD 08/21/2011 07/09/2012 Inactive APPLY 4 PUM PS OF GEL AT BEDTIME DIRECTED (Appended: Controlled substance eRx refill - RxReferenceNumber: [id number]) Lantus Solostar 100 unit/mL (3 mL) Sub-Q Insulin Pen RxNorm: 173230 30 Unit(s) SQ QD 06/20/2011 05/08/2012 Inactive Lantus Solostar 100 unit/mL (3 mL) Sub-Q Insulin Pen RxNorm: 439795 30 Unit(s) SQ QD 06/19/2011 06/19/2011 Inactive metformin 1,000 mg Tab RxNorm: 585318 1 Tablet(s) PO BID 05/12/2011 1 11/09/2010 Inactive citalopram 40 mg Tab RxNorm: 276559 1 Tablet(s) PO QD 03/06/20110 05/2011 Inactive metformin 1,000 mg Tab RxNorm: 907067 1 Tablet(s) PO BID 12/27/2010 0 04/25/2011 Inactive lisinopril 20 mg Tab RxNorm: 877829 Tablet(s) PO TAKE 1 TABLET BY MOUTH EVERY DAY;Generic For:*PRINIVIL 20 MG TABLET 12/26/2010 08/20/2011 Inactive Ceftin 500 mg Tab RxNorm: 036446 1 Tablet(s) PO BID 12/19/20102010 Inactive omeprazole 20 mg Cap, Delayed Release RxNorm: 172394 2 Capsule( s) PO QD 09/13/2010 03/11/2011 Inactive Byetta 10 mcg/0.04 mL per dose Sub-Q Pen Injector RxNorm: 84 7913 1 Unit Dose SQ BID 09/07/2010 10/06/2010 Inactive Celexa 40 mg tablet RxNorm: 803042 1 Tablet(s) PO QD re places lexapro. Generic OKAY 08/09/2010 02/04/2011 Inactive Actos 30 mg Tab RxNorm: 038526 1 Tablet(s) PO QD 08/09/2010 04/02/2011 Inactive lisinopril 20 mg Tab RxNorm: 418422 1 Tablet(s) PO QD 08/09/201011/22 Inactive metformin 1,000 mg Tab RxNorm: 569336 1 Tablet(s) PO BID 08/09/2010 0 12/06/2010 Inactive Metformin 1,000 mg Tab RxNorm: 917146 1 Tablet(s) PO BID 04/26/2010 0 04/25/2010 Inactive metformin 1,000 mg Tab RxNorm: 028568 1 Tablet(s) PO BID 04/26/2010 1 Inactive Lomotil 2.5 mg-0.025 mg Tab RxNorm: 4895000 1 Tablet(s) PO TID 1-2 TABS THREE TIMES DAILY 04/05/2010 04/07/2010 Inactive Mupirocin 2 % Topical Cream RxNorm: 925766 TOP BID 04/05/201003/25 Inactive lisinopril 20 mg Tab RxNorm: 883716 1 Tablet(s) PO QD 03/29/201010/2009 Inactive Actos 30 mg Tab RxNorm: 160681 1 Tablet(s) PO QD 03/29/2010 07/26/2010 Inactive Lisinopril 20 mg Tab RxNorm: 614667 1 Tablet(s) PO QD 02/27/201001/2010 Inactive Actos 30 mg Tab RxNorm: 421268 1 Tablet(s) PO QD 02/14/2010 03/28/2010 Inactive Celexa 40 mg Tab RxNorm: 851327 1 Tablet(s) PO QD replaces lexapro 01/13/2010 07/11/2010 Inactive Cyclobenzaprine 10 mg Tab RxNorm: 924270 1 Tablet(s) PO TID prn spasm 12/23/2009 01/21/2010 Inactive Cyclobenzaprine 10 mg Tab RxNorm: 889096 1 Tablet(s) PO TID 010 12/22/2009 Inactive Hydrocodone-Acetaminophen 7.5 mg-750 mg Tab RxNorm: 944783 1 Ta blet(s) PO Q4-6H 12/23/2009 12/22/2009 Inactive aspirin 81 mg tablet RxNorm: 117252 1 Tablet(s) PO QD No Start Date Active isosorbide mononitrate ER 60 mg tablet,extended release 24 h r RxNorm: 054407 1 Tablet(s) PO QD No Start Date Active amlodipine 5 mg tablet RxNorm: 009583 1 Tablet(s) PO QD No Start Date Active Vitamin D3 1,000 unit tablet RxNorm: 684420 3 Tablet(s) PO QD No St art Date 10/26/2014 Inactive Lexapro 20 mg Tab RxNorm: 100164 1 Tablet(s) PO QD No Start Date 12/24 Inactive loperamide 2 mg tablet RxNorm: 063406 Tablet(s) PO PRN No Start Date 06/07/2016 Inactive Levemir FlexTouch U-100 Insulin 100 unit/mL (3 mL) sub cutaneous pen RxNorm: 667152 22 Unit(s) SQ QD No Start Date 12/21/2019 Inactive Janumet 50 mg-1,000 mg Tab RxNorm: 560113 1 Tablet(s) PO BID No Sta rt Date 01/12/2010 Inactive Levemir U-100 Insulin 100 unit/mL subcutaneous solution RxNo rm: 662746 10 Unit(s) SQ QHS No Start Date 12/08/2018 Inactive Medrol (Gui) 4 mg tablets in a dose pack RxNorm: 846790 Tablet(s) PO Use as directed No Start Date 12/22/2018 Inactive aspirin 325 mg tablet RxNorm: 045127 1 Tablet(s) PO QD No Start Date 08/09/2016 Inactive Efudex 5 % Topical Cream RxNorm: 862039 Application TOP QD prn fto skin lesion No Start Date 08/12/2013 Inactive nitroglycerin 0.4 mg sublingual tablet RxNorm: 717282 Tablet(s) SL as needed No Start Date 12/18/2018 Inactive levofloxacin 500 mg tablet RxNorm: 512208 1 Tablet(s) PO QD No Star t Date 08/06/2018 Inactive ferrous sulfate 325 mg (65 mg iron) tablet RxNorm: 818343 1 Tab let(s) PO QHS No Start Date 04/16/2017 Inactive fluorouracil 5 % topical cream RxNorm: 800639 1 TOP No Start James e 08/06/2018 Inactive Vitamin D3 1,000 unit capsule RxNorm: 823220 1 Capsule(s) PO QD No Start Date 02/03/2018 Inactive Hydrocodone-Acetaminophen 7.5 mg-750 mg Tab RxNorm: 332708 1 Ta blet(s) PO PRN No Start Date 08/09/2014 Inactive pantoprazole 40 mg tablet,delayed release RxNorm: 347495 1 Tabl et(s) PO QD No Start Date 01/22/2018 Inactive omeprazole 20 mg Cap, Delayed Release RxNorm: 199166 2 Capsule( s) PO QD No Start Date 09/12/2010 Inactive DuoNeb 0.5 mg-3 mg(2.5 mg base)/3 mL solution for nebulizati on RxNorm: 9331994 INH Q4H as needed No Start Date 10/22/2018 Inactive Lyrica 75 mg capsule RxNorm: 167328 2 Capsule(s) PO QHS No Start Da te 03/09/2019 Inactive isosorbide mononitrate ER 30 mg tablet,extended release 24 h r RxNorm: 724246 1 Tablet(s) PO QD No Start Date 12/08/2018 Inactive Tradjenta 5 mg tablet RxNorm: 4574435 1 Tablet(s) PO QD No Start Da te 08/09/2016 Inactive Tudorza Pressair 400 mcg/actuation breath activated RxNorm: 4106779 1 Puff(s) INH BID No Start Date 06/17/2017 Inactive Lantus Solostar 100 unit/mL (3 mL) Sub-Q Insulin Pen RxNorm: 385294 30 Unit(s) SQ QD No Start Date 06/18/2011 Inactive Requip 4 mg tablet RxNorm: 820299 1 Tablet(s) PO BID No Start Date Inactive Symbicort 160 mcg-4.5 mcg/actuation HFA aerosol inhaler RxNo rm: 6969134 2 Puff(s) INH BID No Start Date 07/11/2018 Inactive atorvastatin 40 mg tablet RxNorm: 772030 1 Tablet(s) PO QD No Start Date 12/18/2018 Inactive tramadol 50 mg tablet RxNorm: 309227 1 Tablet(s) PO TID as needed for pain (take alone with two extra strength tylenol) No Start Date 01/16/2019 Inactive Symbicort 160 mcg-4.5 mcg/actuation HFA aerosol inhaler RxNo rm: 4259091 2 Puff(s) INH BID No Start Date 08/12/2013 Inactive Vitamin D3 5,000 unit tablet RxNorm: 673935 1 Tablet(s) PO QD No St art Date 05/08/2019 Inactive albuterol sulfate 2.5 mg/3 mL (0.083 %) Neb Solution RxNorm: 813553 1 Unit Dose INH Q4H prn wheezing or shortness of breath No Start Date 01/29/2013 Inac tive Ranexa 500 mg tablet,extended release RxNorm: 917550 1 Tablet(s ) PO BID No Start Date 02/03/2018 Inactive Advair Diskus 500 mcg-50 mcg/dose powder for inhalation RxNo rm: 7806527 1 Puff(s) INH BID No Start Date 08/09/2016 Inactive clopidogrel 75 mg tablet RxNorm: 487254 1 Tablet(s) PO QD No Start Date 05/01/2018 Inactive metformin 1,000 mg Tab RxNorm: 785738 1 Tablet(s) PO BID No Start D ate 08/12/2013 Inactive Silenor 3 mg tablet RxNorm: 209237 1 Tablet(s) PO QHS No Start Date 0 04/04/2017 Inactive Medrol (Gui) 4 mg tablets in a dose pack RxNorm: 118589 Tablet(s) PO as directed No Start Date 01/19/2013 Inactive Requip 4 mg tablet RxNorm: 423896 1 Tablet(s) PO BID No Start Date Inactive clopidogrel 75 mg tablet RxNorm: 048667 1 Tablet(s) PO QD No Start Date 02/03/2018 Inactive Tradjenta 5 mg tablet RxNorm: 8407646 1 Tablet(s) PO QD No Start Da te 02/03/2018 Inactive ProAir HFA 90 mcg/Actuation Aerosol Inhaler RxNorm: 973082 2 Pu ff(s) INH PRN No Start Date 07/09/2012 Inactive Tessalon Perles 100 mg capsule RxNorm: 714861 1 Capsule (s) PO TID as needed for cough No Start Date 08/30/2014 Inactive ferrous sulfate 325 mg (65 mg iron) tablet RxNorm: 986869 1 Tab let(s) PO QD No Start Date 05/08/2019 Inactive pioglitazone 15 mg tablet RxNorm: 687435 1 Tablet(s) PO QD No Start Date 09/20/2014 Inactive Lexapro Oral RxNorm: Oral No Start Date 12/13/2009 Inactive Breo Ellipta 100 mcg-25 mcg/dose powder for inhalation RxNor m: 2548780 1 Puff(s) INH BID No Start Date 05/31/2015 Inactive Tylenol Extra Strength 500 mg tablet RxNorm: 160890 2 T ablet(s) PO QHS along with ropironole No Start Date 12/18/2018 Inactive tramadol 50 mg tablet RxNorm: 497535 1 Tablet(s) PO QID as need ed for pain No Start Date 12/24/2018 Inactive cyclobenzaprine 10 mg Tab RxNorm: 614980 Oral No Start Date 12/22 Inactive Levemir FlexTouch 100 unit/mL (3 mL) subcutaneous insulin pe n RxNorm: 967949 10 Unit(s) SQ QD No Start Date 03/08/2016 Inactive amlodipine 5 mg tablet RxNorm: 669677 1 Tablet(s) PO QD No Start Da te 08/09/2016 Inactive Novolog 100 unit/mL subcutaneous solution RxNorm: 577935 10 Uni t(s) SQ AC No Start Date 08/12/2017 Inactive Levemir FlexTouch 100 unit/mL (3 mL) subcutaneous insulin pe n RxNorm: 309246 25 Unit(s) SQ QPM No Start Date 08/06/2018 Inactive Farxiga 5 mg tablet RxNorm: 7790148 1 Tablet(s) PO QD No Start Date 0 10/05/2014 Inactive DuoNeb 0.5 mg-3 mg(2.5 mg base)/3 mL solution for nebulizati on RxNorm: 2583932 inhalation No Start Date 09/23/2014 Inactive Doxycycline 100 mg Cap RxNorm: 027940 1 Capsule(s) PO BID No Start Date 12/18/2010 Inactive Vitamin B12 1000mcg Tablet RxNorm: 1 Tablet(s) PO QD No Start Date 02/03/2018 Inactive Hydrocodone-Acetaminophen 7.5 mg-750 mg Tab RxNorm: 410204 1 Ta blet(s) PO Q6-8H No Start Date 12/22/2009 Inactive Xigduo XR 5 mg-1,000 mg tablet,extended release RxNorm: 1593 833 1 Tablet(s) PO QD No Start Date 05/31/2015 Inactive cyanocobalamin (vit B-12) 1,000 mcg/mL injection solution Rx Norm: 964276 1 injection weekly for 4 weeks 1 Milliliter(s) Inj No Start Date 05/08/2019 Inactive AndroGel 1.25 g/Actuation (1%) Transdermal Gel Pump RxNorm: 9624767 TD Apply 4pumps daily No Start Date 08/21/2011 Inactive Actoplus MET 15 mg-850 mg Tab RxNorm: 028195 1 Tablet(s) PO BID No Start Date 12/18/2010 Inactive Amaryl 2 mg tablet RxNorm: 521982 1 Tablet(s) PO BID No Start Date Inactive Levemir FlexTouch 100 unit/mL (3 mL) subcutaneous insulin pe n RxNorm: 826110 20 Unit(s) SQ QD No Start Date 06/12/2016 Inactive Symbicort 160 mcg-4.5 mcg/actuation HFA aerosol inhaler RxNo rm: 7900764 2 Puff(s) INH BID No Start Date 02/03/2018 Inactive Symbicort 160 mcg-4.5 mcg/Actuation Inhalation HFA Aer osol Inhaler RxNorm: 3566539 2 INH BID No Start Date 12/18/2010 Inactive Farxiga 5 mg tablet RxNorm: 7538678 1 Tablet(s) PO QD No Start Date 0 03/01/2015 Inactive magnesium oxide 400 mg (241.3 mg magnesium) tablet RxNorm: 1 87334 1 Tablet(s) PO QHS No Start Date 05/08/2019 Inactive Tradjenta 5 mg tablet RxNorm: 6942496 2 Tablet(s) PO QD No Start Da te 07/21/2015 Inactive Levemir FlexTouch U-100 Insulin 100 unit/mL (3 mL) sub cutaneous pen RxNorm: 040539 40 Unit(s) SQ QD No Start Date 08/06/2018 Inactive Sinemet CR 50 mg-200 mg tablet,extended release RxNorm: 8343 41 1 Tablet(s) PO QHS No Start Date 09/24/2017 Inactive metoprolol tartrate 25 mg tablet RxNorm: 151628 1/2 Tablet(s) P O BID No Start Date 02/03/2018 Inactive Requip 4 mg tablet RxNorm: 998003 1 Tablet(s) PO QHS No Start Date Inactive Ventolin HFA 90 mcg/actuation aerosol inhaler RxNorm: 208904 2 Puff(s) INH Q4H as needed No Start Date 04/22/2018 Inactive B12 5,000 mcg-100 mcg sublingual lozenge RxNorm: 981204 IM as d irected No Start Date 05/08/2019 Inactive ropinirole 1 mg tablet RxNorm: 916546 1 Tablet(s) PO QHS No Start D ate 08/06/2018 Inactive Percocet 5 mg-325 mg tablet RxNorm: 9999264 1 Tablet(s) PO Q4H as needed for pain (Dr Rizzo) No Start Date 10/22/2018 Inactive hydrocodone 5 mg-acetaminophen 325 mg tablet RxNorm: 017488 1 Tablet(s) PO TID as needed for pain for severe pain No Start Date 04/16/2014 Inactive scopolamine 1.5 mg 72 hr Transderm Patch RxNorm: 191831 Application TD Q72H for dizziness No Start Date 08/12/2013 Inactive ipratropium-albuterol 0.5 mg-3 mg(2.5 mg base)/3 mL ne bulization soln RxNorm: 3868766 1 Unit Dose INH Q4H No Start Date 01/16/2019 Inactive Medication Administered No Medication Administered data Immunizations Vaccine Codes Date Status Influenza CVX: 135 08/07/2019 Complete Pneumococcal CVX: 33 07/24/2017 Complete Influenza CVX: 135 06/13/2016 Complete Pneumococcal CVX: 133 06/13/2016 Complete Influenza CVX: 141 07/10/2012 Pneumovax Unknown 07/10/2012 Results Observation Observation Code Item Item Code Result Date S ervice Location COMPLETE BLOOD COUNT [id number] WBC 5.5 10e9/L 06/17/20 19 Unknown COMPLETE BLOOD COUNT [id number] RBC 3.92 10e12/L 2018 Unknown COMPLETE BLOOD COUNT 8493079 HEMOGLOBIN 10.9 g/dL 06/17/20 19 Unknown COMPLETE BLOOD COUNT [id number] HEMATOCRIT 34.8 % 06/17/20 19 Unknown COMPLETE BLOOD COUNT 0283453 MCV 88.8 fL 9 Unknown COMPLETE BLOOD COUNT 2878614 MCH 27.8 pg 9 Unknown COMPLETE BLOOD COUNT 2710233 MCHC 31.3 g/dL 9 Unknown COMPLETE BLOOD COUNT 4218302 PLATELET COUNT 239 10e9/L Unknown COMPLETE BLOOD COUNT 6947675 Mean Plt Volume 10.0 fL Unknown COMPLETE BLOOD COUNT 8893970 Neut Auto 68.0 % 9 Unknown COMPLETE BLOOD COUNT 1487082 Lymph Auto 14.8 % 06/17/20 19 Unknown COMPLETE BLOOD COUNT 0640593 Curry Auto 13.1 % 9 Unknown COMPLETE BLOOD COUNT 8386618 Eos Auto 3.6 % 9 Unknown COMPLETE BLOOD COUNT 7502491 RDW 14.7 % 9 Unknown COMPLETE BLOOD COUNT 6837546 Baso Auto 0.5 % 9 Unknown COMPLETE BLOOD COUNT 2415904 Neutrophil Abs 3.74 10e9/L Unknown COMPLETE BLOOD COUNT 2780143 Lymphocyte Abs 0.81 10e9/L Unknown COMPLETE BLOOD COUNT 4097274 Monocyte Abs 0.72 10e9/L 05/26 Unknown COMPLETE BLOOD COUNT 6763818 Eosinophil Abs 0.20 10e9/L Unknown COMPLETE BLOOD COUNT 4002549 RDW-SD 46.4 fL 9 Unknown COMPLETE BLOOD COUNT [id number] Basophil Abs 0.03 10e9/L 05/26 Unknown IRON 51838 Iron 36 ug/dL 06/17/2019 Unknown VITAMIN B 12 28379 VITAMIN B12 540 pg/mL 06/17/2019 Unkn own GFR CALC 9609320 GFR Non Afr Amr 59 mL/min 06/17/2019 Unk nown GFR CALC 3554566 GFR Afr Amr >60 mL/min 06/17/2019 Unknow n ERYTHROCYTE SEDIMENTATION RATE 64601 Sed Rate 34 mm/hr 06/17/2019 Unknown THYROID STIMULATING HORMONE 50333 TSH 2.217 uIU/mL 06/17/2019 Unknown COMPREHENSIVE METABOLIC 36832 AST 12 U/L 2018 Unknown COMPREHENSIVE METABOLIC 00820 ALT 11 U/L 2018 Unknown COMPREHENSIVE METABOLIC 26260 BUN 17 mg/dL 2018 Unknown COMPREHENSIVE METABOLIC 19627 ALBUMIN 3.9 g/dL 2018 Unknown COMPREHENSIVE METABOLIC 33490 CHLORIDE 103 mmol/L 06/17 Unknown COMPREHENSIVE METABOLIC 76148 Bili Total 0.4 mg/dL 06/17 Unknown COMPREHENSIVE METABOLIC 80753 ALK PHOS 51 U/L 2018 Unknown COMPREHENSIVE METABOLIC 37574 SODIUM 140 mmol/L 06/17 Unknown COMPREHENSIVE METABOLIC 12447 CREATININE 1.20 mg/dL 05/26 Unknown COMPREHENSIVE METABOLIC 16451 CALCIUM 8.9 mg/dL 2018 Unknown COMPREHENSIVE METABOLIC 67776 POTASSIUM 4.5 mmol/L 06/17 Unknown COMPREHENSIVE METABOLIC 33682 Total Protein 6.1 g/dL Unknown COMPREHENSIVE METABOLIC 03885 Glucose 108 mg/dL 2018 Unknown COMPREHENSIVE METABOLIC 86733 Bicarbonate 27 mmol/L 05/26 Unknown COMPREHENSIVE METABOLIC 32293 AGAP 10 mmol/L 2018 Unknown FERRITIN 26644 FERRITIN 35.5 ng/mL 05/08/2019 Unknown VITAMIN D TOTAL (25 HYDROXY) 89420 Vitamin D 25 OH 26.0 ng/mL 05/08/2019 Unknown GLYCOSYLATED HEMOGLOBIN TEST 69535 Hgb A1c 71719-2 8.2 % 0 05/08/2019 Unknown MEAN GLUC 7983708 Calc Mean Gluc 189 mg/dL 05/08/2019 Unkn own GFR CALC 4327163 GFR Afr Amr >60 mL/min 05/08/2019 Unknow n GFR CALC 7204483 GFR Non Afr Amr >60 mL/min 05/08/2019 Un known VITAMIN B 12 61676 VITAMIN B12 197 pg/mL 05/08/2019 Unkn own IRON 64523 Iron 34 ug/dL 05/08/2019 Unknown COMPLETE BLOOD COUNT 3055556 WBC 6.9 10e9/L 05/08/20 19 Unknown COMPLETE BLOOD COUNT 9101932 RBC 3.95 10e12/L 2018 Unknown COMPLETE BLOOD COUNT 5565709 HEMOGLOBIN 11.1 g/dL 05/08/20 19 Unknown COMPLETE BLOOD COUNT 8074889 HEMATOCRIT 34.9 % 05/08/20 19 Unknown COMPLETE BLOOD COUNT 0957769 MCV 88.4 fL 9 Unknown COMPLETE BLOOD COUNT 4899624 MCH 28.1 pg 9 Unknown COMPLETE BLOOD COUNT 9660327 MCHC 31.8 g/dL 9 Unknown COMPLETE BLOOD COUNT 6322992 PLATELET COUNT 217 10e9/L Unknown COMPLETE BLOOD COUNT 9632950 Mean Plt Volume 9.6 fL Unknown COMPLETE BLOOD COUNT 7028345 Neut Auto 77.6 % 9 Unknown COMPLETE BLOOD COUNT 1861604 Lymph Auto 10.7 % 05/08/20 19 Unknown COMPLETE BLOOD COUNT 3927865 Curry Auto 10.4 % 9 Unknown COMPLETE BLOOD COUNT 1934219 RDW 14.7 % 9 Unknown COMPLETE BLOOD COUNT 1086469 Eos Auto 1.2 % 9 Unknown COMPLETE BLOOD COUNT 4078212 Baso Auto 0.1 % 9 Unknown COMPLETE BLOOD COUNT 0075746 Neutrophil Abs 5.35 10e9/L Unknown COMPLETE BLOOD COUNT 5914566 Lymphocyte Abs 0.74 10e9/L Unknown COMPLETE BLOOD COUNT 0371764 Monocyte Abs 0.72 10e9/L 04/24 Unknown COMPLETE BLOOD COUNT 2072770 Eosinophil Abs 0.08 10e9/L Unknown COMPLETE BLOOD COUNT 3481694 RDW-SD 46.6 fL 9 Unknown COMPLETE BLOOD COUNT 7681718 Basophil Abs 0.01 10e9/L 04/24 Unknown COMPREHENSIVE METABOLIC 51560 AST 13 U/L 2018 Unknown COMPREHENSIVE METABOLIC 47347 ALT 9 U/L 2018 Unknown COMPREHENSIVE METABOLIC 28635 BUN 18 mg/dL 2018 Unknown COMPREHENSIVE METABOLIC 60080 ALBUMIN 4.3 g/dL 2018 Unknown COMPREHENSIVE METABOLIC 76501 CHLORIDE 99 mmol/L 2018 Unknown COMPREHENSIVE METABOLIC 94498 Bili Total 0.4 mg/dL 05/08 Unknown COMPREHENSIVE METABOLIC 88821 ALK PHOS 48 U/L 2018 Unknown COMPREHENSIVE METABOLIC 98504 SODIUM 137 mmol/L 05/08 Unknown COMPREHENSIVE METABOLIC 70408 CREATININE 0.79 mg/dL 04/24 Unknown COMPREHENSIVE METABOLIC 44577 CALCIUM 9.5 mg/dL 2018 Unknown COMPREHENSIVE METABOLIC 57053 POTASSIUM 4.0 mmol/L 05/08 Unknown COMPREHENSIVE METABOLIC 96360 Total Protein 6.3 g/dL Unknown COMPREHENSIVE METABOLIC 88472 Glucose 232 mg/dL 2018 Unknown COMPREHENSIVE METABOLIC 62877 Bicarbonate 27 mmol/L 04/24 Unknown COMPREHENSIVE METABOLIC 57417 AGAP 11 mmol/L 2018 Unknown GLYCOSYLATED HEMOGLOBIN TEST 24394 Hgb A1c 18496-7 8.9 % 0 12/10/2018 Unknown MEAN GLUC 6773727 Calc Mean Gluc 209 mg/dL 12/10/2018 Unkn own LIPID GROUP 01653 Cholesterol 145 mg/dL 12/09/2018 Unkno wn LIPID GROUP 62844 Triglyceride 235 mg/dL 12/09/2018 Unkn own LIPID GROUP 78633 HDL CHOLESTEROL 40 mg/dL 12/09/2018 U nknown LIPID GROUP 79211 Chol/HDL Ratio 3.62 ratio 12/09/2018 U nknown LIPID GROUP 78795 NON-HDL Chol 105 mg/dL 12/09/2018 Unkn own LIPID GROUP 72204 LDL Cholesterol 58 mg/dL 12/09/2018 U nknown THYROID STIMULATING HORMONE 31200 TSH 1.071 uIU/mL 12/09/2018 Unknown GFR CALC 5085050 GFR Afr Amr >60 mL/min 12/09/2018 Unknow n GFR CALC 5161489 GFR Non Afr Amr >60 mL/min 12/09/2018 Un known COMPLETE BLOOD COUNT 8791615 WBC 7.6 10e9/L 12/10/19 19 Unknown COMPLETE BLOOD COUNT 3966925 RBC 3.97 10e12/L 2018 Unknown COMPLETE BLOOD COUNT 7797801 HEMOGLOBIN 11.4 g/dL 12/10/19 19 Unknown COMPLETE BLOOD COUNT 6137662 HEMATOCRIT 35.8 % 12/10/19 19 Unknown COMPLETE BLOOD COUNT 3607861 MCV 90.2 fL 9 Unknown COMPLETE BLOOD COUNT 4388646 MCH 28.7 pg 9 Unknown COMPLETE BLOOD COUNT 9065972 MCHC 31.8 g/dL 9 Unknown COMPLETE BLOOD COUNT 1681995 PLATELET COUNT 200 10e9/L Unknown COMPLETE BLOOD COUNT 9906634 Mean Plt Volume 10.1 fL Unknown COMPLETE BLOOD COUNT 9772336 Neut Auto 79.0 % 9 Unknown COMPLETE BLOOD COUNT 0884755 Lymph Auto 8.3 % 12/10/19 19 Unknown COMPLETE BLOOD COUNT 1699245 Curry Auto 10.8 % 9 Unknown COMPLETE BLOOD COUNT 5968228 RDW 14.6 % 9 Unknown COMPLETE BLOOD COUNT 9535438 Eos Auto 1.5 % 9 Unknown COMPLETE BLOOD COUNT 9338283 Baso Auto 0.4 % 9 Unknown COMPLETE BLOOD COUNT 8656571 Neutrophil Abs 6.00 10e9/L Unknown COMPLETE BLOOD COUNT 7781160 Lymphocyte Abs 0.63 10e9/L Unknown COMPLETE BLOOD COUNT 6653706 Monocyte Abs 0.82 10e9/L 11/22 Unknown COMPLETE BLOOD COUNT 0165336 Eosinophil Abs 0.11 10e9/L Unknown COMPLETE BLOOD COUNT 1456013 Basophil Abs 0.03 10e9/L 11/22 Unknown COMPLETE BLOOD COUNT 1551504 RDW-SD 46.9 fL 9 Unknown COMPREHENSIVE METABOLIC 21887 AST 11 U/L 2018 Unknown COMPREHENSIVE METABOLIC 04963 ALT 11 U/L 2018 Unknown COMPREHENSIVE METABOLIC 27595 BUN 21 mg/dL 2018 Unknown COMPREHENSIVE METABOLIC 57634 ALBUMIN 4.7 g/dL 2018 Unknown COMPREHENSIVE METABOLIC 81920 CHLORIDE 99 mmol/L 2018 Unknown COMPREHENSIVE METABOLIC 38767 Bili Total 0.4 mg/dL 12/09 Unknown COMPREHENSIVE METABOLIC 86220 ALK PHOS 73 U/L 2018 Unknown COMPREHENSIVE METABOLIC 94198 SODIUM 137 mmol/L 12/09 Unknown COMPREHENSIVE METABOLIC 15756 CREATININE 1.12 mg/dL 11/22 Unknown COMPREHENSIVE METABOLIC 64218 CALCIUM 9.4 mg/dL 2018 Unknown COMPREHENSIVE METABOLIC 66357 POTASSIUM 4.2 mmol/L 12/09 Unknown COMPREHENSIVE METABOLIC 58465 Total Protein 6.8 g/dL Unknown COMPREHENSIVE METABOLIC 69370 Glucose 194 mg/dL 2018 Unknown COMPREHENSIVE METABOLIC 73904 Bicarbonate 30 mmol/L 11/22 Unknown COMPREHENSIVE METABOLIC 92839 AGAP 8 mmol/L 2018 Unknown FREE T4 74088 T4 Free 0.86 ng/dL 12/09/2018 Unknown COMPLETE BLOOD COUNT 7053720 WBC 6.8 10e9/L 04/17/20 17 Unknown COMPLETE BLOOD COUNT 3452634 RBC 3.86 10e12/L 2016 Unknown COMPLETE BLOOD COUNT 1243313 HEMOGLOBIN 9.8 g/dL 04/17/20 17 Unknown COMPLETE BLOOD COUNT 6005101 HEMATOCRIT 31.1 % 04/17/20 17 Unknown COMPLETE BLOOD COUNT 4880022 MCV 80.6 fL 7 Unknown COMPLETE BLOOD COUNT 2056935 MCH 25.4 pg 7 Unknown COMPLETE BLOOD COUNT 2585946 MCHC 31.5 g/dL 7 Unknown COMPLETE BLOOD COUNT 5760609 PLATELET COUNT 247 10e9/L Unknown COMPLETE BLOOD COUNT 9583357 Mean Plt Volume 9.7 fL Unknown COMPLETE BLOOD COUNT 2066324 Neut Auto 74.1 % 7 Unknown COMPLETE BLOOD COUNT 5347870 Lymph Auto 12.0 % 04/17/20 17 Unknown COMPLETE BLOOD COUNT 3190045 Curry Auto 10.8 % 7 Unknown COMPLETE BLOOD COUNT 6981395 RDW 15.9 % 7 Unknown COMPLETE BLOOD COUNT 7429018 Eos Auto 2.5 % 7 Unknown COMPLETE BLOOD COUNT 3603279 Baso Auto 0.6 % 7 Unknown COMPLETE BLOOD COUNT 8556274 Neutrophil Abs 5.04 10e9/L Unknown COMPLETE BLOOD COUNT 9130801 Lymphocyte Abs 0.82 10e9/L Unknown COMPLETE BLOOD COUNT 3320356 Monocyte Abs 0.73 10e9/L 03/25 Unknown COMPLETE BLOOD COUNT 0852829 Eosinophil Abs 0.17 10e9/L Unknown COMPLETE BLOOD COUNT 5589639 Basophil Abs 0.04 10e9/L 03/25 Unknown COMPLETE BLOOD COUNT 7531462 RDW-SD 44.4 fL 201 7 Unknown MEAN GLUC 2644112 Calc Mean Gluc 223 mg/dL 04/17/2017 Unkn own GFR CALC 1366958 GFR Afr Amr >60 mL/min 04/17/2017 Unknow n GFR CALC 2226766 GFR Non Afr Amr >60 mL/min 04/17/2017 Un known GLYCOSYLATED HEMOGLOBIN TEST 91460 Hgb A1c 74600-0 9.4 % 0 04/17/2017 Unknown IRON 39324 Iron 37 ug/dL 04/17/2017 Unknown VITAMIN B 12 46984 VITAMIN B12 280 pg/mL 04/17/2017 Unkn own THYROID STIMULATING HORMONE 78618 TSH 2.481 uIU/mL 04/17/2017 Unknown COMPREHENSIVE METABOLIC 42651 AST 13 U/L 2016 Unknown COMPREHENSIVE METABOLIC 54825 ALT 12 U/L 2016 Unknown COMPREHENSIVE METABOLIC 42258 BUN 18 mg/dL 2016 Unknown COMPREHENSIVE METABOLIC 56390 ALBUMIN 4.7 g/dL 2016 Unknown COMPREHENSIVE METABOLIC 63154 CHLORIDE 103 mmol/L 04/17 Unknown COMPREHENSIVE METABOLIC 36632 Bili Total 0.4 mg/dL 04/17 Unknown COMPREHENSIVE METABOLIC 43122 ALK PHOS 49 U/L 2016 Unknown COMPREHENSIVE METABOLIC 32653 SODIUM 140 mmol/L 04/17 Unknown COMPREHENSIVE METABOLIC 56323 CREATININE 1.14 mg/dL 03/25 Unknown COMPREHENSIVE METABOLIC 60251 CALCIUM 9.4 mg/dL 2016 Unknown COMPREHENSIVE METABOLIC 16074 POTASSIUM 4.4 mmol/L 04/17 Unknown COMPREHENSIVE METABOLIC 85835 Total Protein 6.7 g/dL Unknown COMPREHENSIVE METABOLIC 76000 Glucose 266 mg/dL 2016 Unknown COMPREHENSIVE METABOLIC 06855 Bicarbonate 25 mmol/L 03/25 Unknown COMPREHENSIVE METABOLIC 56771 AGAP 12 mmol/L 2016 Unknown FERRITIN 80976 FERRITIN 10.0 ng/mL 04/17/2017 Unknown COMPLETE BLOOD COUNT 2618513 WBC 6.8 10e9/L 12/22/19 17 Unknown COMPLETE BLOOD COUNT 2122204 RBC 3.70 10e12/L 2016 Unknown COMPLETE BLOOD COUNT 6331931 HEMOGLOBIN 8.0 g/dL 12/22/19 17 Unknown COMPLETE BLOOD COUNT 4132265 HEMATOCRIT 26.7 % 12/22/19 17 Unknown COMPLETE BLOOD COUNT 1157681 MCV 72.2 fL 7 Unknown COMPLETE BLOOD COUNT 3235170 MCH 21.6 pg 7 Unknown COMPLETE BLOOD COUNT 7572652 MCHC 30.0 g/dL 7 Unknown COMPLETE BLOOD COUNT 1935105 PLATELET COUNT 290 10e9/L Unknown COMPLETE BLOOD COUNT 7873501 Mean Plt Volume 9.3 fL Unknown COMPLETE BLOOD COUNT 7975560 Neut Auto 80.2 % 7 Unknown COMPLETE BLOOD COUNT 6933597 Lymph Auto 9.8 % 12/22/19 17 Unknown COMPLETE BLOOD COUNT 3133218 Curry Auto 8.1 % 7 Unknown COMPLETE BLOOD COUNT 4833337 RDW 17.4 % 7 Unknown COMPLETE BLOOD COUNT 1665382 Eos Auto 1.5 % 7 Unknown COMPLETE BLOOD COUNT 4212571 Baso Auto 0.4 % 7 Unknown COMPLETE BLOOD COUNT 1002584 Neutrophil Abs 5.45 10e9/L Unknown COMPLETE BLOOD COUNT 2847009 Lymphocyte Abs 0.67 10e9/L Unknown COMPLETE BLOOD COUNT 6616264 Monocyte Abs 0.55 10e9/L 11/24 Unknown COMPLETE BLOOD COUNT 5652834 Eosinophil Abs 0.10 10e9/L Unknown COMPLETE BLOOD COUNT 1769371 RDW-SD 44.1 fL 7 Unknown COMPLETE BLOOD COUNT 7453591 Basophil Abs 0.03 10e9/L 11/24 Unknown COMPLETE BLOOD COUNT 6413485 WBC 7.6 10e9/L 12/13/19 17 Unknown COMPLETE BLOOD COUNT 0130875 RBC 3.71 10e12/L 2016 Unknown COMPLETE BLOOD COUNT 0826649 HEMOGLOBIN 8.0 g/dL 12/13/19 17 Unknown COMPLETE BLOOD COUNT 4310463 HEMATOCRIT 27.3 % 12/13/19 17 Unknown COMPLETE BLOOD COUNT 8023724 MCV 73.6 fL 7 Unknown COMPLETE BLOOD COUNT 3778701 MCH 21.6 pg 7 Unknown COMPLETE BLOOD COUNT 6011606 MCHC 29.3 g/dL 7 Unknown COMPLETE BLOOD COUNT 0288564 PLATELET COUNT 330 10e9/L Unknown COMPLETE BLOOD COUNT 3050229 Mean Plt Volume 9.7 fL Unknown COMPLETE BLOOD COUNT 7089791 Neut Auto 73.2 % 7 Unknown COMPLETE BLOOD COUNT 6965824 Lymph Auto 14.5 % 12/13/19 17 Unknown COMPLETE BLOOD COUNT 9083140 Curry Auto 10.5 % 7 Unknown COMPLETE BLOOD COUNT 9822423 Eos Auto 1.3 % 7 Unknown COMPLETE BLOOD COUNT 7403321 RDW 17.3 % 7 Unknown COMPLETE BLOOD COUNT 6767741 Baso Auto 0.5 % 7 Unknown COMPLETE BLOOD COUNT 6175011 Neutrophil Abs 5.56 10e9/L Unknown COMPLETE BLOOD COUNT 5921437 Lymphocyte Abs 1.10 10e9/L Unknown COMPLETE BLOOD COUNT 7762257 Monocyte Abs 0.80 10e9/L 11/23 Unknown COMPLETE BLOOD COUNT 1327191 Eosinophil Abs 0.10 10e9/L Unknown COMPLETE BLOOD COUNT 7094620 RDW-SD 45.2 fL 7 Unknown COMPLETE BLOOD COUNT 6588637 Basophil Abs 0.04 10e9/L 11/23 Unknown IRON 98449 Iron 69 ug/dL 03/09/2016 Unknown VITAMIN B 12 69035 VITAMIN B12 311 pg/mL 03/09/2016 Unkn own MEAN GLUC 5587007 Mean Glucose 260 mg/dL 03/07/2016 Unknow n GLYCOSYLATED HEMOGLOBIN TEST 36370 Hgb A1c 32236-7 10.7 % 0 03/07/2016 Unknown COMPREHENSIVE METABOLIC 03629 AST 14 U/L 2015 Unknown COMPREHENSIVE METABOLIC 98847 ALT 21 U/L 2015 Unknown COMPREHENSIVE METABOLIC 34179 BUN 27 mg/dL 2015 Unknown COMPREHENSIVE METABOLIC 05738 ALBUMIN 4.5 g/dL 2015 Unknown COMPREHENSIVE METABOLIC 80947 CHLORIDE 101 mmol/L 03/06 Unknown COMPREHENSIVE METABOLIC 19846 Bili Total 0.4 mg/dL 03/06 Unknown COMPREHENSIVE METABOLIC 19285 ALK PHOS 49 U/L 2015 Unknown COMPREHENSIVE METABOLIC 93999 SODIUM 136 mmol/L 03/06 Unknown COMPREHENSIVE METABOLIC 39490 CREATININE 1.16 mg/dL 02/22 Unknown COMPREHENSIVE METABOLIC 07619 CALCIUM 9.9 mg/dL 2015 Unknown COMPREHENSIVE METABOLIC 34111 POTASSIUM 4.5 mmol/L 03/06 Unknown COMPREHENSIVE METABOLIC 30710 Total Protein 6.7 g/dL Unknown COMPREHENSIVE METABOLIC 06985 Glucose 245 mg/dL 2015 Unknown COMPREHENSIVE METABOLIC 16471 Bicarbonate 24 mmol/L 02/22 Unknown COMPREHENSIVE METABOLIC 48732 AGAP 11 mmol/L 2015 Unknown THYROID STIMULATING HORMONE 65131 TSH 0.775 uIU/mL 03/06/2016 Unknown TESTOSTERONE TOTAL 10811 Testos Total 96 ng/dL 03/06/20 16 Unknown LIPID GROUP 09280 Cholesterol 146 mg/dL 03/06/2016 Unkno wn LIPID GROUP 32702 Triglyceride 249 mg/dL 03/06/2016 Unkn own LIPID GROUP 36747 HDL CHOLESTEROL 46 mg/dL 03/06/2016 U nknown LIPID GROUP 72550 Chol/HDL Ratio 3.17 ratio 03/06/2016 U nknown LIPID GROUP 95966 NON-HDL Chol 100 mg/dL 03/06/2016 Unkn own LIPID GROUP 61614 LDL Cholesterol 50 mg/dL 03/06/2016 U nknown COMPLETE BLOOD COUNT 0833023 WBC 11.2 10e9/L 016 Unknown COMPLETE BLOOD COUNT 5002183 RBC 3.94 10e12/L 2015 Unknown COMPLETE BLOOD COUNT 9984699 HEMOGLOBIN 11.4 g/dL 03/06/20 16 Unknown COMPLETE BLOOD COUNT 1196989 HEMATOCRIT 33.7 % 03/06/20 16 Unknown COMPLETE BLOOD COUNT 9147269 MCV 85.5 fL 6 Unknown COMPLETE BLOOD COUNT 2821845 MCH 28.9 pg 6 Unknown COMPLETE BLOOD COUNT 0110797 MCHC 33.8 g/dL 6 Unknown COMPLETE BLOOD COUNT 2491866 PLATELET COUNT 204 10e9/L Unknown COMPLETE BLOOD COUNT 2112606 Mean Plt Volume 10.1 fL Unknown COMPLETE BLOOD COUNT 4671872 Neut Auto 85.9 % 6 Unknown COMPLETE BLOOD COUNT 6768481 Lymph Auto 6.8 % 03/06/20 16 Unknown COMPLETE BLOOD COUNT 8467043 Curry Auto 7.0 % 6 Unknown COMPLETE BLOOD COUNT 0148180 Eos Auto 0.1 % 6 Unknown COMPLETE BLOOD COUNT 9008213 RDW 13.7 % 6 Unknown COMPLETE BLOOD COUNT 3479531 Baso Auto 0.2 % 6 Unknown COMPLETE BLOOD COUNT 4257149 Neutrophil Abs 9.62 10e9/L Unknown COMPLETE BLOOD COUNT 9062346 Lymphoctye Abs 0.76 10e9/L Unknown COMPLETE BLOOD COUNT 8449136 Monocyte Abs 0.78 10e9/L 02/22 Unknown COMPLETE BLOOD COUNT 8776393 Eosinophil Abs 0.01 10e9/L Unknown COMPLETE BLOOD COUNT 5581841 RDW-SD 41.9 fL 6 Unknown COMPLETE BLOOD COUNT 8928117 Basophil Abs 0.02 10e9/L 02/22 Unknown FREE T4 67026 T4 Free 0.89 ng/dL 03/06/2016 Unknown GFR CALC 2912161 GFR Afr Amr >60 mL/min 03/06/2016 Unknow n GFR CALC 8221544 GFR Non Afr Amr >60 mL/min 03/06/2016 Un known PSA EQUIMOLAR JONATAN 66701 PSA Total 0.78 ng/mL 6 Unknown FREE T4 15366 FREE T4 0.90 NG/DL 07/01/2015 Unknown LIPID GROUP 20533 HDL TEST 44 MG/DL 07/01/2015 Unknown LIPID GROUP 01603 TRIG 303 MG/DL 07/01/2015 Unknown LIPID GROUP 72931 TEST LDL 56 MG/DL 07/01/2015 Unknown LIPID GROUP 80155 CHOL 161 MG/DL 07/01/2015 Unknown LIPID GROUP 64577 RCHOL/HDL 3.66 RATIO 07/01/2015 Unknow n LIPID GROUP 66904 NON-HDL CH 117 MG/DL 07/01/2015 Unknow n THYROID STIMULATING HORMONE 27515 TSH 1.783 uIU/ML 07/01/2015 Unknown COMPLETE BLOOD COUNT 8540351 WBC 6.6 10e9/L 07/01/20 15 Unknown COMPLETE BLOOD COUNT 7904770 RBC 4.18 10e12/L 2014 Unknown COMPLETE BLOOD COUNT 0926925 HGB 12.2 g/dL 5 Unknown COMPLETE BLOOD COUNT 7836648 HCT DET 37.0 % 5 Unknown COMPLETE BLOOD COUNT 0084441 MCV 88.5 fL 5 Unknown COMPLETE BLOOD COUNT 5919946 MCH 29.2 pg 5 Unknown COMPLETE BLOOD COUNT 5121039 MCHC 33.0 g/dL 5 Unknown COMPLETE BLOOD COUNT 6363742 PLT 224 10e9/L 07/01/20 15 Unknown COMPLETE BLOOD COUNT 7097193 MPV 10.4 fL 5 Unknown COMPLETE BLOOD COUNT 5297334 SUSIE % 72.6 % 5 Unknown COMPLETE BLOOD COUNT 1637443 LY % 14.1 % 5 Unknown COMPLETE BLOOD COUNT 8810200 MON % 10.2 % 5 Unknown COMPLETE BLOOD COUNT 5237649 EOS % 2.6 % 5 Unknown COMPLETE BLOOD COUNT 5353479 BASO % 0.5 % 5 Unknown COMPLETE BLOOD COUNT 6741881 RDW 14.1 % 5 Unknown COMPLETE BLOOD COUNT 8681715 ABS SUSIE 4.79 10e9/L 015 Unknown COMPLETE BLOOD COUNT 2319545 ABS LYMPH 0.93 10e9/L 015 Unknown COMPLETE BLOOD COUNT 7669594 ABS MONO 0.67 10e9/L 015 Unknown COMPLETE BLOOD COUNT 8003189 ABS EOS 0.17 10e9/L 015 Unknown COMPLETE BLOOD COUNT 5291533 ABS BASO 0.03 10e9/L 015 Unknown COMPLETE BLOOD COUNT 4934583 RDW-SD 43.9 fL 5 Unknown PSA EQUIMOLAR JONATAN 25844 PSA EQ 0.73 NG/ML 5 Unknown COMPREHENSIVE METABOLIC 30900 AST 24 U/L 2014 Unknown COMPREHENSIVE METABOLIC 90200 ALT 26 IU/L 2014 Unknown COMPREHENSIVE METABOLIC 63935 BUN 26 MG/DL 2014 Unknown COMPREHENSIVE METABOLIC 08067 ALBUMIN 4.6 GM/DL 2014 Unknown COMPREHENSIVE METABOLIC 29851 CHLORIDE 102 MMOL/L 06/01 Unknown COMPREHENSIVE METABOLIC 30809 BILI TOT 0.5 MG/DL 2014 Unknown COMPREHENSIVE METABOLIC 93088 ALK PHOS 56 U/L 2014 Unknown COMPREHENSIVE METABOLIC 27627 SODIUM 136 MMOL/L 06/01 Unknown COMPREHENSIVE METABOLIC 47599 CREATININE 1.16 MG/DL 04/2015 Unknown COMPREHENSIVE METABOLIC 50609 CALCIUM 9.8 MG/DL 2014 Unknown COMPREHENSIVE METABOLIC 39386 POTASSIUM 4.6 MMOL/L 06/01 Unknown COMPREHENSIVE METABOLIC 66616 PROT TOT 7.4 GM/DL 2014 Unknown COMPREHENSIVE METABOLIC 84282 Glucose 223 MG/DL 2014 Unknown COMPREHENSIVE METABOLIC 21311 BICARB 27 MMOL/L 2014 Unknown COMPREHENSIVE METABOLIC 26456 ANION GAP 7 MEQ/L 2014 Unknown GFR CALC [id number] GFR AA >60 ML/MIN 06/01/2015 Unknown GFR CALC [id number] GFR NON-AA >60 ML/MIN 06/01/2015 Unknown GLYCOSYLATED HEMOGLOBIN TEST 31536 A1C HPLC 96651-5 8.9 % 0 06/01/2015 Unknown GFR CALC [id number] GFR AA >60 ML/MIN 02/25/2015 Unknown GFR CALC [id number] GFR NON-AA >60 ML/MIN 02/25/2015 Unknown COMPREHENSIVE METABOLIC 85231 AST 24 U/L 2014 Unknown COMPREHENSIVE METABOLIC 50236 ALT 25 IU/L 2014 Unknown COMPREHENSIVE METABOLIC 48628 BUN 14 MG/DL 2014 Unknown COMPREHENSIVE METABOLIC 47059 ALBUMIN 4.5 GM/DL 2014 Unknown COMPREHENSIVE METABOLIC 90118 CHLORIDE 99 MMOL/L 2014 Unknown COMPREHENSIVE METABOLIC 07472 BILI TOT 0.5 MG/DL 2014 Unknown COMPREHENSIVE METABOLIC 74757 ALK PHOS 48 U/L 2014 Unknown COMPREHENSIVE METABOLIC 10352 SODIUM 136 MMOL/L 02/25 Unknown COMPREHENSIVE METABOLIC 36633 CREATININE 0.97 MG/DL 12/2014 Unknown COMPREHENSIVE METABOLIC 74264 CALCIUM 9.9 MG/DL 2014 Unknown COMPREHENSIVE METABOLIC 16285 POTASSIUM 4.4 MMOL/L 02/25 Unknown COMPREHENSIVE METABOLIC 13395 PROT TOT 7.1 GM/DL 2014 Unknown COMPREHENSIVE METABOLIC 59441 Glucose 171 MG/DL 2014 Unknown COMPREHENSIVE METABOLIC 50377 BICARB 25 MMOL/L 2014 Unknown COMPREHENSIVE METABOLIC 79287 ANION GAP 12 MEQ/L 2014 Unknown PROTEIN/CREAT URINE WITH RATIO 04417|90107 PROT R U 19 MG/D L 08/27/2014 Unknown PROTEIN/CREAT URINE WITH RATIO 01157|18154 CREAT R U 111 MG/ DL 08/27/2014 Unknown PROTEIN/CREAT URINE WITH RATIO 27355|48237 XRATIO P/C 171 MG /G 08/27/2014 Unknown MICROALBUMIN URINE RANDOM 59309 MICRL MG/L 34.7 MG/L 12/2013 Unknown MICROALBUMIN URINE RANDOM 42481 XM.ALB/CRE 32.7 MG/GCR 1 10/28/2013 Unknown MICROALBUMIN URINE RANDOM 71548 CREAT MG/D 106 MG/DL 12/2013 Unknown MICROALBUMIN URINE RANDOM 27795 CRE/100 1.06 G/L 12/2013 Unknown COMPLETE BLOOD COUNT [id number] WBC 7.1 10e9/L 08/05/20 14 Unknown COMPLETE BLOOD COUNT [id number] RBC 4.35 10e12/L 2013 Unknown COMPLETE BLOOD COUNT [id number] HGB 12.9 g/dL 4 Unknown COMPLETE BLOOD COUNT [id number] HCT DET 39.4 % 4 Unknown COMPLETE BLOOD COUNT 6769812 MCV 90.6 fL 4 Unknown COMPLETE BLOOD COUNT 9947001 MCH 29.7 pg 4 Unknown COMPLETE BLOOD COUNT 2755549 MCHC 32.7 g/dL 4 Unknown COMPLETE BLOOD COUNT [id number] PLT 240 10e9/L 08/05/20 14 Unknown COMPLETE BLOOD COUNT 2434861 MPV 10.3 fL 4 Unknown COMPLETE BLOOD COUNT [id number] SUSIE % 70.0 % 4 Unknown COMPLETE BLOOD COUNT [id number] LY % 16.4 % 4 Unknown COMPLETE BLOOD COUNT [id number] MON % 9.2 % 4 Unknown COMPLETE BLOOD COUNT 9985054 EOS % 3.8 % 4 Unknown COMPLETE BLOOD COUNT 2675204 BASO % 0.6 % 4 Unknown COMPLETE BLOOD COUNT 1038562 RDW 13.4 % 4 Unknown COMPLETE BLOOD COUNT [id number] ABS SUSIE 4.97 10e9/L 014 Unknown COMPLETE BLOOD COUNT 0986187 ABS LYMPH 1.16 10e9/L 014 Unknown COMPLETE BLOOD COUNT [id number] ABS MONO 0.65 10e9/L 014 Unknown COMPLETE BLOOD COUNT [id number] ABS EOS 0.27 10e9/L 014 Unknown COMPLETE BLOOD COUNT [id number] ABS BASO 0.04 10e9/L 014 Unknown COMPLETE BLOOD COUNT [id number] RDW-SD 43.3 fL 4 Unknown FREE T4 62864 FREE T4 1.02 NG/DL 08/05/2014 Unknown GFR CALC 5099888 GFR AA >60 ML/MIN 08/05/2014 Unknown GFR CALC 3340048 GFR NON-AA >60 ML/MIN 08/05/2014 Unknown GLYCOSYLATED HEMOGLOBIN TEST 94271 A1C HPLC 75166-2 7.7 % 1 10/05/2013 Unknown COMPREHENSIVE METABOLIC 22534 AST 19 U/L 2013 Unknown COMPREHENSIVE METABOLIC 14684 ALT 21 IU/L 2013 Unknown COMPREHENSIVE METABOLIC 86529 BUN 25 MG/DL 2013 Unknown COMPREHENSIVE METABOLIC 97086 ALBUMIN 4.6 GM/DL 2013 Unknown COMPREHENSIVE METABOLIC 21998 CHLORIDE 103 MMOL/L 08/05 Unknown COMPREHENSIVE METABOLIC 53046 BILI TOT 0.4 MG/DL 2013 Unknown COMPREHENSIVE METABOLIC 03804 ALK PHOS 45 U/L 2013 Unknown COMPREHENSIVE METABOLIC 32493 SODIUM 138 MMOL/L 08/05 Unknown COMPREHENSIVE METABOLIC 22027 CREATININE 1.01 MG/DL 07/25 Unknown COMPREHENSIVE METABOLIC 66066 CALCIUM 9.8 MG/DL 2013 Unknown COMPREHENSIVE METABOLIC 07642 POTASSIUM 4.7 MMOL/L 08/05 Unknown COMPREHENSIVE METABOLIC 41904 PROT TOT 7.0 GM/DL 2013 Unknown COMPREHENSIVE METABOLIC 77361 Glucose 145 MG/DL 2013 Unknown COMPREHENSIVE METABOLIC 32698 BICARB 27 MMOL/L 2013 Unknown COMPREHENSIVE METABOLIC 41677 ANION GAP 8 MEQ/L 2013 Unknown THYROID STIMULATING HORMONE 68938 TSH 1.922 uIU/ML 08/05/2014 Unknown LIPID GROUP 24034 HDL TEST 47 MG/DL 08/05/2014 Unknown LIPID GROUP 83305 TRIG 224 MG/DL 08/05/2014 Unknown LIPID GROUP 27863 TEST LDL 125 MG/DL 08/05/2014 Unknown LIPID GROUP 34395 CHOL 217 MG/DL 08/05/2014 Unknown LIPID GROUP 10983 RCHOL/HDL 4.62 RATIO 08/05/2014 Unknow n LIPID GROUP 29517 NON-HDL CH 170 MG/DL 08/05/2014 Unknow n MYCOPLASMA ANTIBODY, IFA [id number] MYCO G IFA 1:256 03/24 Unknown MYCOPLASMA ANTIBODY, IFA [id number] MYCO M IFA <1:10 03/24 Unknown MYCOPLASMA ANTIBODY, IFA [id number] MYCO INTER SEE BELO 03/24 Unknown COMPLETE BLOOD COUNT 6098993 WBC 8.3 10e9/L 04/09/20 13 Unknown COMPLETE BLOOD COUNT [id number] RBC 4.61 10e12/L 2012 Unknown COMPLETE BLOOD COUNT 4308202 HGB 13.9 g/dL 3 Unknown COMPLETE BLOOD COUNT 3861960 HCT DET 41.2 % 3 Unknown COMPLETE BLOOD COUNT 5643615 MCV 89.4 fL 3 Unknown COMPLETE BLOOD COUNT 5436465 MCH 30.2 pg 3 Unknown COMPLETE BLOOD COUNT 9367317 MCHC 33.7 g/dL 3 Unknown COMPLETE BLOOD COUNT 7278886 PLT 249 10e9/L 04/09/20 13 Unknown COMPLETE BLOOD COUNT 9113040 MPV 9.8 fL 3 Unknown COMPLETE BLOOD COUNT 7202668 SUSIE % 65.9 % 3 Unknown COMPLETE BLOOD COUNT [id number] LY % 19.8 % 3 Unknown COMPLETE BLOOD COUNT [id number] MON % 10.8 % 3 Unknown COMPLETE BLOOD COUNT [id number] EOS % 3.0 % 3 Unknown COMPLETE BLOOD COUNT 7635207 BASO % 0.5 % 3 Unknown COMPLETE BLOOD COUNT 8769347 RDW 14.0 % 3 Unknown COMPLETE BLOOD COUNT [id number] ABS SUSIE 5.47 10e9/L 013 Unknown COMPLETE BLOOD COUNT 9207655 ABS LYMPH 1.64 10e9/L 013 Unknown COMPLETE BLOOD COUNT [id number] ABS MONO 0.90 10e9/L 013 Unknown COMPLETE BLOOD COUNT [id number] ABS EOS 0.25 10e9/L 013 Unknown COMPLETE BLOOD COUNT [id number] ABS BASO 0.04 10e9/L 013 Unknown COMPLETE BLOOD COUNT 7847754 RDW-SD 45.0 fL 3 Unknown URIC ACID 89329 URIC ACID 5.3 MG/DL 02/12/2013 Unknown FREE T4 95510 FREE T4 1.09 NG/DL 02/11/2013 Unknown COMPLETE BLOOD COUNT [id number] WBC 6.3 10e9/L 02/12/20 13 Unknown COMPLETE BLOOD COUNT [id number] RBC 4.29 10e12/L 2012 Unknown COMPLETE BLOOD COUNT 9111091 HGB 13.1 g/dL 3 Unknown COMPLETE BLOOD COUNT [id number] HCT DET 39.7 % 3 Unknown COMPLETE BLOOD COUNT 0464753 MCV 92.5 fL 3 Unknown COMPLETE BLOOD COUNT [id number] MCH 30.5 pg 3 Unknown COMPLETE BLOOD COUNT 4316448 MCHC 33.0 g/dL 3 Unknown COMPLETE BLOOD COUNT 5038462 PLT 247 10e9/L 02/12/20 13 Unknown COMPLETE BLOOD COUNT 8055012 MPV 10.0 fL 3 Unknown COMPLETE BLOOD COUNT [id number] SUSIE % 73.4 % 3 Unknown COMPLETE BLOOD COUNT 0035855 LY % 13.5 % 3 Unknown COMPLETE BLOOD COUNT [id number] MON % 9.4 % 3 Unknown COMPLETE BLOOD COUNT 3998946 EOS % 2.9 % 3 Unknown COMPLETE BLOOD COUNT [id number] BASO % 0.8 % 3 Unknown COMPLETE BLOOD COUNT 2474231 RDW 13.8 % 3 Unknown COMPLETE BLOOD COUNT 9862582 ABS SUSIE 4.62 10e9/L 013 Unknown COMPLETE BLOOD COUNT 7727571 ABS LYMPH 0.85 10e9/L 013 Unknown COMPLETE BLOOD COUNT 9875508 ABS MONO 0.59 10e9/L 013 Unknown COMPLETE BLOOD COUNT 8154834 ABS EOS 0.18 10e9/L 013 Unknown COMPLETE BLOOD COUNT 4984352 ABS BASO 0.05 10e9/L 013 Unknown COMPLETE BLOOD COUNT 1075637 RDW-SD 45.7 fL 3 Unknown HEMOGLOBIN A1C (GLYCOSYLATED) 3264935 A1C HPLC 40036-5 7.5 % 02/11/2013 Unknown THYROID STIMULATING HORMONE 10290 TSH 1.466 uIU/ML 02/11/2013 Unknown VITAMIN B 12 FOLIC ACID 37028|62286 VIT B 12 625 PG/ML 01/23 Unknown VITAMIN B 12 FOLIC ACID 94919|11421 FOLIC ACID 15.6 NG/ML Unknown COMPREHENSIVE METABOLIC 07506 AST 18 U/L 2012 Unknown COMPREHENSIVE METABOLIC 64842 ALT 21 IU/L 2012 Unknown COMPREHENSIVE METABOLIC 61180 BUN 25 MG/DL 2012 Unknown COMPREHENSIVE METABOLIC 98828 ALBUMIN 4.6 GM/DL 2012 Unknown COMPREHENSIVE METABOLIC 96159 CHLORIDE 103 MMOL/L 02/11 Unknown COMPREHENSIVE METABOLIC 74738 BILI TOT 0.3 MG/DL 2012 Unknown COMPREHENSIVE METABOLIC 19299 ALK PHOS 53 U/L 2012 Unknown COMPREHENSIVE METABOLIC 18503 SODIUM 136 MMOL/L 02/11 Unknown COMPREHENSIVE METABOLIC 63593 CREATININE 1.16 MG/DL 01/23 Unknown COMPREHENSIVE METABOLIC 27509 CALCIUM 10.0 MG/DL 02/11 Unknown COMPREHENSIVE METABOLIC 30982 POTASSIUM 4.9 MMOL/L 02/11 Unknown COMPREHENSIVE METABOLIC 69641 PROT TOT 7.0 GM/DL 2012 Unknown COMPREHENSIVE METABOLIC 59440 Glucose 192 MG/DL 2012 Unknown COMPREHENSIVE METABOLIC 43204 BICARB 26 MMOL/L 2012 Unknown COMPREHENSIVE METABOLIC 41379 ANION GAP 7 MEQ/L 2012 Unknown GFR CALC 6312892 GFR AA >60 ML/MIN 02/11/2013 Unknown GFR CALC 8072966 GFR NON-AA >60 ML/MIN 02/11/2013 Unknown C-REACTIVE PROTEIN (CRP) QUANT 91897 CRP 2.7 MG/DL 02/11/2013 Unknown GFR CALC 8240135 GFR AA >60 ML/MIN 09/19/2012 Unknown GFR CALC 3943248 GFR NON-AA >60 ML/MIN 09/19/2012 Unknown HEMOGLOBIN A1C (GLYCOSYLATED) 2391243 A1C HPLC 72037-1 7.2 % 09/19/2012 Unknown COMPREHENSIVE METABOLIC 59246 AST 13 U/L 2011 Unknown COMPREHENSIVE METABOLIC 88515 ALT 17 IU/L 2011 Unknown COMPREHENSIVE METABOLIC 27235 BUN 25 MG/DL 2011 Unknown COMPREHENSIVE METABOLIC 16492 ALBUMIN 4.5 GM/DL 2011 Unknown COMPREHENSIVE METABOLIC 07587 CHLORIDE 104 MMOL/L 09/19 Unknown COMPREHENSIVE METABOLIC 78202 BILI TOT 0.3 MG/DL 2011 Unknown COMPREHENSIVE METABOLIC 76384 ALK PHOS 43 U/L 2011 Unknown COMPREHENSIVE METABOLIC 68567 SODIUM 139 MMOL/L 09/19 Unknown COMPREHENSIVE METABOLIC 61650 CREATININE 1.10 MG/DL 08/25 Unknown COMPREHENSIVE METABOLIC 90997 CALCIUM 9.8 MG/DL 2011 Unknown COMPREHENSIVE METABOLIC 29612 POTASSIUM 4.8 MMOL/L 09/19 Unknown COMPREHENSIVE METABOLIC 22519 PROT TOT 6.5 GM/DL 2011 Unknown COMPREHENSIVE METABOLIC 49862 Glucose 148 MG/DL 2011 Unknown COMPREHENSIVE METABOLIC 18603 BICARB 25 MMOL/L 2011 Unknown COMPREHENSIVE METABOLIC 45784 ANION GAP 10 MEQ/L 2011 Unknown LIPID GROUP 42171 HDL TEST 44 MG/DL 09/19/2012 Unknown LIPID GROUP 93020 TRIG 318 MG/DL 09/19/2012 Unknown LIPID GROUP 03461 TEST LDL 100 MG/DL 09/19/2012 Unknown LIPID GROUP 37455 CHOL 208 MG/DL 09/19/2012 Unknown LIPID GROUP 39420 RCHOL/HDL 4.73 RATIO 09/19/2012 Unknow n FREE T4 59493 FREE T4 0.87 NG/DL 05/06/2012 Unknown GLYCOSYLATED HEMOGLOBIN TEST 29271 A1C HPLC 84612-7 6.4 % 0 05/06/2012 Unknown LIPID GROUP 90058 HDL TEST 44 MG/DL 05/06/2012 Unknown LIPID GROUP 87648 TRIG 177 MG/DL 05/06/2012 Unknown LIPID GROUP 28614 TEST LDL 113 MG/DL 05/06/2012 Unknown LIPID GROUP 05673 CHOL 192 MG/DL 05/06/2012 Unknown LIPID GROUP 24747 RCHOL/HDL 4.36 RATIO 05/06/2012 Unknow n THYROID STIMULATING HORMONE 21881 TSH 1.151 uIU/ML 05/06/2012 Unknown COMPLETE BLOOD COUNT 54834 WBC 7.8 10e9/L 05/06/20 12 Unknown COMPLETE BLOOD COUNT 22801 RBC 4.31 10e12/L 2011 Unknown COMPLETE BLOOD COUNT 82522 HGB 12.8 g/dL 2 Unknown COMPLETE BLOOD COUNT 18470 HCT DET 39.1 % 2 Unknown COMPLETE BLOOD COUNT 89154 MCV 90.7 fL 2 Unknown COMPLETE BLOOD COUNT 83820 MCH 29.7 pg 2 Unknown COMPLETE BLOOD COUNT 07234 MCHC 32.7 g/dL 2 Unknown COMPLETE BLOOD COUNT 13257 PLT 207 10e9/L 05/06/20 12 Unknown COMPLETE BLOOD COUNT 72054 MPV 10.2 fL 2 Unknown COMPLETE BLOOD COUNT 61318 SUSIE % 74.2 % 2 Unknown COMPLETE BLOOD COUNT 52038 LY % 12.8 % 2 Unknown COMPLETE BLOOD COUNT 59785 MON % 11.0 % 2 Unknown COMPLETE BLOOD COUNT 23435 EOS % 1.7 % 2 Unknown COMPLETE BLOOD COUNT 32892 BASO % 0.3 % 2 Unknown COMPLETE BLOOD COUNT 99316 RDW 13.7 % 2 Unknown COMPLETE BLOOD COUNT 44446 ABS SUSIE 5.79 10e9/L 012 Unknown COMPLETE BLOOD COUNT 25018 ABS LYMPH 1.00 10e9/L 012 Unknown COMPLETE BLOOD COUNT 18590 ABS MONO 0.86 10e9/L 012 Unknown COMPLETE BLOOD COUNT 32032 ABS EOS 0.13 10e9/L 012 Unknown COMPLETE BLOOD COUNT 41572 ABS BASO 0.02 10e9/L 012 Unknown COMPLETE BLOOD COUNT 97461 RDW-SD 44.4 fL 2 Unknown COMPREHENSIVE METABOLIC 92428 AST 13 U/L 2011 Unknown COMPREHENSIVE METABOLIC 20900 ALT 14 IU/L 2011 Unknown COMPREHENSIVE METABOLIC 27695 BUN 17 MG/DL 2011 Unknown COMPREHENSIVE METABOLIC 63415 ALBUMIN 4.5 GM/DL 2011 Unknown COMPREHENSIVE METABOLIC 15735 CHLORIDE 101 MMOL/L 05/06 Unknown COMPREHENSIVE METABOLIC 94802 BILI TOT 0.5 MG/DL 2011 Unknown COMPREHENSIVE METABOLIC 69660 ALK PHOS 42 U/L 2011 Unknown COMPREHENSIVE METABOLIC 19428 SODIUM 141 MMOL/L 05/06 Unknown COMPREHENSIVE METABOLIC 50055 CREATININE 1.02 MG/DL 04/24 Unknown COMPREHENSIVE METABOLIC 35739 CALCIUM 9.7 MG/DL 2011 Unknown COMPREHENSIVE METABOLIC 33036 POTASSIUM 4.6 MMOL/L 05/06 Unknown COMPREHENSIVE METABOLIC 50114 PROT TOT 6.5 GM/DL 2011 Unknown COMPREHENSIVE METABOLIC 94002 Glucose 139 MG/DL 2011 Unknown COMPREHENSIVE METABOLIC 81116 BICARB 29 MMOL/L 2011 Unknown COMPREHENSIVE METABOLIC 73560 ANION GAP 11 MEQ/L 2011 Unknown GFR CALC 0063927 GFR AA >60 ML/MIN 05/06/2012 Unknown GFR CALC 9837008 GFR NON-AA 54.0L ML/MIN 05/06/2012 Unkno wn GLYCOSYLATED HEMOGLOBIN TEST 00627 A1C HPLC 12704-9 6.6 % 1 09/30/2010 Unknown FREE T4 43253 FREE T4 1.00 NG/DL 07/26/2011 Unknown LIPID GROUP 86273 HDL TEST 40 MG/DL 07/26/2011 Unknown LIPID GROUP 72066 TRIG 136 MG/DL 07/26/2011 Unknown LIPID GROUP 64424 TEST LDL 126 MG/DL 07/26/2011 Unknown LIPID GROUP 19260 CHOL 193 MG/DL 07/26/2011 Unknown LIPID GROUP 62617 RCHOL/HDL 4.83 RATIO 07/26/2011 Unknow n COMPREHENSIVE METABOLIC 20156 AST 15 U/L 2010 Unknown COMPREHENSIVE METABOLIC 66897 ALT 13 IU/L 2010 Unknown COMPREHENSIVE METABOLIC 18729 BUN 17 MG/DL 2010 Unknown COMPREHENSIVE METABOLIC 64458 ALBUMIN 4.4 GM/DL 2010 Unknown COMPREHENSIVE METABOLIC 00539 CHLORIDE 102 MMOL/L 07/26 Unknown COMPREHENSIVE METABOLIC 53715 BILI TOT 0.5 MG/DL 2010 Unknown COMPREHENSIVE METABOLIC 21231 ALK PHOS 54 U/L 2010 Unknown COMPREHENSIVE METABOLIC 42015 SODIUM 138 MMOL/L 07/26 Unknown COMPREHENSIVE METABOLIC 61694 CREATININE 0.95 MG/DL 10/2010 Unknown COMPREHENSIVE METABOLIC 01537 CALCIUM 9.3 MG/DL 2010 Unknown COMPREHENSIVE METABOLIC 16420 POTASSIUM 4.3 MMOL/L 07/26 Unknown COMPREHENSIVE METABOLIC 68367 PROT TOT 6.7 GM/DL 2010 Unknown COMPREHENSIVE METABOLIC 99173 Glucose 116 MG/DL 2010 Unknown COMPREHENSIVE METABOLIC 87128 BICARB 28 MMOL/L 2010 Unknown COMPREHENSIVE METABOLIC 83382 ANION GAP 8 MEQ/L 2010 Unknown PSA EQUIMOLAR JONATAN 79718 PSA EQ 1.01 NG/ML 1 Unknown COMPLETE BLOOD COUNT 12155 WBC 6.4 10e9/L 07/26/20 11 Unknown COMPLETE BLOOD COUNT 47092 RBC 4.43 10e12/L 2010 Unknown COMPLETE BLOOD COUNT 51453 HGB 13.2 g/dL 1 Unknown COMPLETE BLOOD COUNT 17250 HCT DET 39.3 % 1 Unknown COMPLETE BLOOD COUNT 63114 MCV 88.7 fL 1 Unknown COMPLETE BLOOD COUNT 25656 MCH 29.8 pg 1 Unknown COMPLETE BLOOD COUNT 24755 MCHC 33.6 g/dL 1 Unknown COMPLETE BLOOD COUNT 25636 PLT 226 10e9/L 07/26/20 11 Unknown COMPLETE BLOOD COUNT 39212 MPV 9.9 fL 1 Unknown COMPLETE BLOOD COUNT 56894 SUSIE % 65.4 % 1 Unknown COMPLETE BLOOD COUNT 13261 LY % 19.7 % 1 Unknown COMPLETE BLOOD COUNT 91923 MON % 10.8 % 1 Unknown COMPLETE BLOOD COUNT 50582 EOS % 3.6 % 1 Unknown COMPLETE BLOOD COUNT 43567 BASO % 0.5 % 1 Unknown COMPLETE BLOOD COUNT 31484 RDW 13.2 % 1 Unknown COMPLETE BLOOD COUNT 98675 ABS SUSIE 4.19 10e9/L 011 Unknown COMPLETE BLOOD COUNT 95715 ABS LYMPH 1.26 10e9/L 011 Unknown COMPLETE BLOOD COUNT 35925 ABS MONO 0.69 10e9/L 011 Unknown COMPLETE BLOOD COUNT 34924 ABS EOS 0.23 10e9/L 011 Unknown COMPLETE BLOOD COUNT 09244 ABS BASO 0.03 10e9/L 011 Unknown COMPLETE BLOOD COUNT 19730 RDW-SD 41.7 fL 1 Unknown THYROID STIMULATING HORMONE 54713 TSH 1.345 uIU/ML 07/26/2011 Unknown GFR CALC 8414684 GFR AA >60 ML/MIN 07/26/2011 Unknown GFR CALC 4899468 GFR NON-AA >60 ML/MIN 07/26/2011 Unknown BRAIN NATRIURETIC PEPTIDE(BNP) 57767 BRAIN PEP 23 pg/mL 01/19/2011 Unknown CANCEL 8437150 CANCEL FOOTNOTE 01/18/2011 Unknown TESTOSTERONE TOTAL 26875 TESTOS TO 138 NG/DL 12/19/2010 Unknown COMPLETE BLOOD COUNT 51584 WBC 8.4 10e9/L 12/08/19 11 Unknown COMPLETE BLOOD COUNT 63818 RBC 4.40 10e12/L 2010 Unknown COMPLETE BLOOD COUNT 96332 HGB 13.3 g/dL 1 Unknown COMPLETE BLOOD COUNT 80348 HCT DET 39.8 % 1 Unknown COMPLETE BLOOD COUNT 84619 MCV 90.5 fL 1 Unknown COMPLETE BLOOD COUNT 40353 MCH 30.2 pg 1 Unknown COMPLETE BLOOD COUNT 69570 MCHC 33.4 g/dL 1 Unknown COMPLETE BLOOD COUNT 25544 PLT 201 10e9/L 12/08/19 11 Unknown COMPLETE BLOOD COUNT 13298 MPV 10.6 fL 1 Unknown COMPLETE BLOOD COUNT 74434 SUSIE % 72.5 % 1 Unknown COMPLETE BLOOD COUNT 27452 LY % 14.8 % 1 Unknown COMPLETE BLOOD COUNT 23692 MON % 10.6 % 1 Unknown COMPLETE BLOOD COUNT 53092 EOS % 1.7 % 1 Unknown COMPLETE BLOOD COUNT 84909 BASO % 0.4 % 1 Unknown COMPLETE BLOOD COUNT 74591 RDW 13.7 % 1 Unknown COMPLETE BLOOD COUNT 15293 ABS SUSIE 6.09 10e9/L 011 Unknown COMPLETE BLOOD COUNT 22026 ABS LYMPH 1.24 10e9/L 011 Unknown COMPLETE BLOOD COUNT 40592 ABS MONO 0.89 10e9/L 011 Unknown COMPLETE BLOOD COUNT 55885 ABS EOS 0.14 10e9/L 011 Unknown COMPLETE BLOOD COUNT 45412 ABS BASO 0.03 10e9/L 011 Unknown COMPLETE BLOOD COUNT 31382 RDW-SD 44.0 fL 1 Unknown LIPID GROUP 14139 HDL TEST 40 MG/DL 12/07/2010 Unknown LIPID GROUP 10156 TRIG 383 MG/DL 12/07/2010 Unknown LIPID GROUP 87300 TEST LDL 82 MG/DL 12/07/2010 Unknown LIPID GROUP 49934 CHOL 199 MG/DL 12/07/2010 Unknown LIPID GROUP 54095 RCHOL/HDL 4.98 RATIO 12/07/2010 Unknow n GFR CALC 9435273 GFR AA >60 ML/MIN 12/07/2010 Unknown GFR CALC 5215614 GFR NON-AA >60 ML/MIN 12/07/2010 Unknown COMPREHENSIVE METABOLIC 02732 AST 29 U/L 2010 Unknown COMPREHENSIVE METABOLIC 58626 ALT 39 IU/L 2010 Unknown COMPREHENSIVE METABOLIC 44994 BUN 17 MG/DL 2010 Unknown COMPREHENSIVE METABOLIC 26495 ALBUMIN 4.9 GM/DL 2010 Unknown COMPREHENSIVE METABOLIC 21127 CHLORIDE 100 MMOL/L 12/07 Unknown COMPREHENSIVE METABOLIC 51254 BILI TOT 0.3 MG/DL 2010 Unknown COMPREHENSIVE METABOLIC 41508 ALK PHOS 53 U/L 2010 Unknown COMPREHENSIVE METABOLIC 92944 SODIUM 137 MMOL/L 12/07 Unknown COMPREHENSIVE METABOLIC 00861 CREATININE 0.98 MG/DL 11/22 Unknown COMPREHENSIVE METABOLIC 88808 CALCIUM 9.5 MG/DL 2010 Unknown COMPREHENSIVE METABOLIC 12305 POTASSIUM 4.3 MMOL/L 12/07 Unknown COMPREHENSIVE METABOLIC 49638 PROT TOT 6.6 GM/DL 2010 Unknown COMPREHENSIVE METABOLIC 35082 Glucose 176 MG/DL 2010 Unknown COMPREHENSIVE METABOLIC 77775 BICARB 28 MMOL/L 2010 Unknown COMPREHENSIVE METABOLIC 64744 ANION GAP 9 MEQ/L 2010 Unknown PSA EQUIMOLAR JONATAN 08049 PSA EQ 0.65 NG/ML 1 Unknown HEMOGLOBIN A1C (GLYCOSYLATED) 27193 A1C HPLC 96372-7 6.9 % 12/07/2010 Unknown Procedures Procedure Codes Date THER/PROPH/DIAG INJ SC/IM CPT-4: 30828 12/25/2019 METHYLPREDNISOLONE INJECTION CPT-4: J2930 12/25/2019 FLU VACC PRSV FREE INC ANTIG 65 AND OLDER CPT-4: 22050 08/07/2019 FLU VACC PRSV FREE INC ANTIG 65 AND OLDER CPT-4: 81164 08/07/2019 ADMIN INFLUENZA VIRUS VAC CPT-4: G0008 08/07/2019 THER/PROPH/DIAG INJ SC/IM CPT-4: 42132 07/14/2019 METHYLPREDNISOLONE INJECTION CPT-4: J2930 07/14/2019 ROUTINE VENIPUNCTURE CPT-4: 56163 06/17/2019 ASSAY THYROID STIM HORMONE CPT-4: 40700 06/17/2019 COMPREHEN METABOLIC PANEL CPT-4: 02359 06/17/2019 COMPLETE CBC W/AUTO DIFF WBC CPT-4: 76005 06/17/2019 ASSAY OF IRON CPT-4: 96291 06/17/2019 VITAMIN B-12 CPT-4: 65159 06/17/2019 RBC SED RATE AUTOMATED CPT-4: 97717 06/17/2019 THER/PROPH/DIAG INJ SC/IM CPT-4: 27046 06/10/2019 THER/PROPH/DIAG INJ SC/IM CPT-4: 59234 06/02/2019 THER/PROPH/DIAG INJ SC/IM CPT-4: 24428 05/27/2019 THER/PROPH/DIAG INJ SC/IM CPT-4: 17485 05/12/2019 ROUTINE VENIPUNCTURE CPT-4: 10777 05/08/2019 COMPREHEN METABOLIC PANEL CPT-4: 30282 05/08/2019 COMPLETE CBC W/AUTO DIFF WBC CPT-4: 43433 05/08/2019 A1C HPLC CPT-4: 87319 05/08/2019 VITAMIN D TOTAL (25 HYDROXY) CPT-4: 13428 05/08/2019 ASSAY OF IRON CPT-4: 02849 05/08/2019 ASSAY OF FERRITIN CPT-4: 40640 05/08/2019 VITAMIN B-12 CPT-4: 99677 05/08/2019 THER/PROPH/DIAG INJ SC/IM CPT-4: 58124 03/21/2019 METHYLPREDNISOLONE INJECTION CPT-4: J2930 03/21/2019 THER/PROPH/DIAG INJ SC/IM CPT-4: 74957 03/13/2019 METHYLPREDNISOLONE INJECTION CPT-4: J2930 03/13/2019 THER/PROPH/DIAG INJ SC/IM CPT-4: 82796 12/25/2018 METHYLPREDNISOLONE INJECTION CPT-4: J2930 12/25/2018 ROUTINE VENIPUNCTURE CPT-4: 77674 12/09/2018 ASSAY OF FREE THYROXINE CPT-4: 75142 12/09/2018 ASSAY THYROID STIM HORMONE CPT-4: 05491 12/09/2018 COMPREHEN METABOLIC PANEL CPT-4: 69865 12/09/2018 COMPLETE CBC W/AUTO DIFF WBC CPT-4: 11557 12/09/2018 LIPID PANEL CPT-4: 91819 12/09/2018 A1C HPLC CPT-4: 68867 12/09/2018 PRESCRIP TRANSMIT VIA ERX SY CPT-4: G8553 08/21/2018 PRESCRIP TRANSMIT VIA ERX SY CPT-4: G8553 08/07/2018 THER/PROPH/DIAG INJ SC/IM CPT-4: 91890 05/23/2018 METHYLPREDNISOLONE INJECTION CPT-4: J2930 05/23/2018 PRESCRIP TRANSMIT VIA ERX SY CPT-4: G8553 05/02/2018 THER/PROPH/DIAG INJ SC/IM CPT-4: 02441 04/29/2018 METHYLPREDNISOLONE INJECTION CPT-4: J2930 04/29/2018 DEXAMETHASONE SODIUM PHOS CPT-4: J1100 04/22/2018 THER/PROPH/DIAG INJ SC/IM CPT-4: 10465 04/22/2018 TRIAMCINOLONE ACET INJ NOS CPT-4: J3301 04/22/2018 PRESCRIP TRANSMIT VIA ERX SY CPT-4: G8553 04/22/2018 PRESCRIP TRANSMIT VIA ERX SY CPT-4: G8553 01/23/2018 URINALYSIS NONAUTO W/O SCOPE CPT-4: 98498 01/02/2018 URINE CULTURE/ COLONY COUNT CPT-4: 87579 01/02/2018 PRESCRIP TRANSMIT VIA ERX SY CPT-4: G8553 01/02/2018 PRESCRIP TRANSMIT VIA ERX SY CPT-4: G8553 12/28/2017 PRESCRIP TRANSMIT VIA ERX SY CPT-4: G8553 12/21/2017 CEFTRIAXONE SODIUM INJECTION CPT-4: J0696 12/17/2017 THER/PROPH/DIAG INJ SC/IM CPT-4: 70068 12/17/2017 THER/PROPH/DIAG INJ SC/IM CPT-4: 82200 12/17/2017 TRIAMCINOLONE ACET INJ NOS CPT-4: J3301 12/17/2017 PRESCRIP TRANSMIT VIA ERX SY CPT-4: G8553 12/17/2017 DRAIN/INJECT JOINT/BURSA CPT-4: 42672 12/11/2017 TRIAMCINOLONE ACET INJ NOS CPT-4: J3301 12/11/2017 DEXAMETHASONE SODIUM PHOS CPT-4: J1100 12/11/2017 DESTRUCT PREMALG LESION (Cryosurgery) CPT-4: 71445 PRESCRIP TRANSMIT VIA ERX SY CPT-4: G8553 10/17/2017 DEXAMETHASONE SODIUM PHOS CPT-4: J1100 08/02/2017 THER/PROPH/DIAG INJ SC/IM CPT-4: 32289 08/02/2017 TRIAMCINOLONE ACET INJ NOS CPT-4: J3301 08/02/2017 PRESCRIP TRANSMIT VIA ERX SY CPT-4: G8553 08/02/2017 PNEUMOCOCCAL VACC 23 OLIVIA IM CPT-4: 53195 07/24/2017 ADMIN PNEUMOCOCCAL VACCINE CPT-4: G0009 07/24/2017 ALBUTEROL NON-COMP UNIT CPT-4: J7613 07/02/2017 AIRWAY INHALATION TREATMENT CPT-4: 86371 07/02/2017 THER/PROPH/DIAG INJ SC/IM CPT-4: 44098 07/02/2017 METHYLPREDNISOLONE INJECTION CPT-4: J2930 07/02/2017 PRESCRIP TRANSMIT VIA ERX SY CPT-4: G8553 05/29/2017 ROUTINE VENIPUNCTURE CPT-4: 73996 04/17/2017 ASSAY OF IRON CPT-4: 38574 04/17/2017 VITAMIN B-12 CPT-4: 81285 04/17/2017 COMPREHEN METABOLIC PANEL CPT-4: 75584 04/17/2017 COMPLETE CBC W/AUTO DIFF WBC CPT-4: 11708 04/17/2017 ASSAY OF FERRITIN CPT-4: 67955 04/17/2017 ASSAY THYROID STIM HORMONE CPT-4: 44287 04/17/2017 A1C HPLC CPT-4: 87916 04/17/2017 DRAIN/INJECT JOINT/BURSA CPT-4: 44353 02/01/2017 TRIAMCINOLONE ACET INJ NOS CPT-4: J3301 02/01/2017 DEXAMETHASONE SODIUM PHOS CPT-4: J1100 02/01/2017 ROUTINE VENIPUNCTURE CPT-4: 03339 12/27/2016 COMPLETE CBC W/AUTO DIFF WBC CPT-4: 16951 12/27/2016 ROUTINE VENIPUNCTURE CPT-4: 30725 12/21/2016 COMPLETE CBC W/AUTO DIFF WBC CPT-4: 55955 12/21/2016 ROUTINE VENIPUNCTURE CPT-4: 58782 12/12/2016 COMPLETE CBC W/AUTO DIFF WBC CPT-4: 88507 12/12/2016 PRESCRIP TRANSMIT VIA ERX SY CPT-4: G8553 10/31/2016 PRESCRIP TRANSMIT VIA ERX SY CPT-4: G8553 10/03/2016 PRESCRIP TRANSMIT VIA ERX SY CPT-4: G8553 09/04/2016 DESTRUCT PREMALG LESION (Cryosurgery) CPT-4: 35169 DESTRUCT PREMALG LES 2-14 CPT-4: 94566 08/22/2016 PRESCRIP TRANSMIT VIA ERX SY CPT-4: G8553 08/10/2016 PRESCRIP TRANSMIT VIA ERX SY CPT-4: G8553 07/06/2016 FLU VACC PRSV FREE INC ANTIG 65 AND OLDER CPT-4: 09960 06/13/2016 PNEUMOCOCCAL VACC 13 OLIVIA IM CPT-4: 24331 06/13/2016 ADMIN INFLUENZA VIRUS VAC CPT-4: G0008 06/13/2016 ADMIN PNEUMOCOCCAL VACCINE CPT-4: G0009 06/13/2016 CERUM REMOVAL CPT-4: 04771 04/05/2016 PRESCRIP TRANSMIT VIA ERX SY CPT-4: G8553 04/03/2016 ROUTINE VENIPUNCTURE CPT-4: 19016 03/06/2016 ASSAY OF FREE THYROXINE CPT-4: 45081 03/06/2016 ASSAY THYROID STIM HORMONE CPT-4: 13902 03/06/2016 COMPREHEN METABOLIC PANEL CPT-4: 18703 03/06/2016 COMPLETE CBC W/AUTO DIFF WBC CPT-4: 22431 03/06/2016 LIPID PANEL CPT-4: 42610 03/06/2016 ASSAY OF PSA TOTAL CPT-4: 46106 03/06/2016 TESTOSTERONE TOTAL - MALE CPT-4: 76584 03/06/2016 A1C HPLC CPT-4: 79484 03/06/2016 ASSAY OF IRON CPT-4: 14106 03/06/2016 VITAMIN B-12 CPT-4: 10468 03/06/2016 INJ TENDON SHEATH/LIGAMENT CPT-4: 48536 02/17/2016 TRIAMCINOLONE ACET INJ NOS CPT-4: J3301 02/17/2016 DEXAMETHASONE SODIUM PHOS CPT-4: J1100 02/17/2016 PRESCRIP TRANSMIT VIA ERX SY CPT-4: G8553 01/31/2016 PRESCRIP TRANSMIT VIA ERX SY CPT-4: G8553 12/30/2015 PRESCRIP TRANSMIT VIA ERX SY CPT-4: G8553 12/06/2015 PRESCRIP TRANSMIT VIA ERX SY CPT-4: G8553 11/15/2015 PPPS, subseq visit CPT-4: G0439 10/05/2015 MICROALBUMIN QUANTITATIVE CPT-4: 55420 10/05/2015 PROTEIN/CREAT URINE WITH RATIO CPT-4: 83609|49393 6 ROUTINE VENIPUNCTURE CPT-4: 54336 07/01/2015 ASSAY OF FREE THYROXINE CPT-4: 95204 07/01/2015 ASSAY THYROID STIM HORMONE CPT-4: 79927 07/01/2015 COMPLETE CBC W/AUTO DIFF WBC CPT-4: 74344 07/01/2015 LIPID PANEL CPT-4: 81214 07/01/2015 ASSAY OF PSA TOTAL CPT-4: 18441 07/01/2015 AEROBIC WOUND CULTURE & STN CPT-4: 24480 06/28/2015 PRESCRIP TRANSMIT VIA ERX SY CPT-4: G8553 06/28/2015 AEROBIC WOUND CULTURE & STN CPT-4: 68175 06/03/2015 PRESCRIP TRANSMIT VIA ERX SY CPT-4: G8553 06/03/2015 ROUTINE VENIPUNCTURE CPT-4: 43210 06/01/2015 COMPREHEN METABOLIC PANEL CPT-4: 77571 06/01/2015 A1C HPLC CPT-4: 25720 06/01/2015 COMPREHEN METABOLIC PANEL CPT-4: 35029 02/25/2015 A1C HPLC CPT-4: 97192 02/25/2015 DESTRUCT PREMALG LESION (Cryosurgery) CPT-4: 74091 PROTEIN/CREAT URINE WITH RATIO CPT-4: 72304|61847 5 MICROALBUMIN QUANTITATIVE CPT-4: 84011 10/27/2014 INFLUENZA ASSAY W/OPTIC CPT-4: 97900 10/21/2014 PRESCRIP TRANSMIT VIA ERX SY CPT-4: G8553 10/06/2014 PRESCRIP TRANSMIT VIA ERX SY CPT-4: G8553 09/21/2014 PRESCRIP TRANSMIT VIA ERX SY CPT-4: G8553 09/02/2014 MICROALBUMIN QUANTITATIVE CPT-4: 45883 08/27/2014 PROTEIN/CREAT URINE WITH RATIO CPT-4: 94647|52270 4 PPPS, subseq visit CPT-4: G0439 08/10/2014 ROUTINE VENIPUNCTURE CPT-4: 98091 08/05/2014 ASSAY OF FREE THYROXINE CPT-4: 22388 08/05/2014 ASSAY THYROID STIM HORMONE CPT-4: 85032 08/05/2014 COMPREHEN METABOLIC PANEL CPT-4: 31624 08/05/2014 COMPLETE CBC W/AUTO DIFF WBC CPT-4: 29652 08/05/2014 LIPID PANEL CPT-4: 29432 08/05/2014 A1C HPLC CPT-4: 30235 08/05/2014 FLUZONE, 5ML (Medicare) CPT-4: Q2038 08/05/2014 ADMIN INFLUENZA VIRUS VAC CPT-4: G0008 08/05/2014 METHYLPREDNISOLONE 40 MG INJ CPT-4: J1030 12/16/2013 TRIAMCINOLONE ACET INJ NOS CPT-4: J3301 12/16/2013 DRAIN/INJECT JOINT/BURSA CPT-4: 15692 12/16/2013 PRESCRIP TRANSMIT VIA ERX SY CPT-4: G8553 10/09/2013 THER/PROPH/DIAG INJ SC/IM CPT-4: 61807 09/18/2013 METHYLPREDNISOLONE 40 MG INJ CPT-4: J1030 09/18/2013 TRIAMCINOLONE ACET INJ NOS CPT-4: J3301 09/18/2013 PRESCRIP TRANSMIT VIA ERX SY CPT-4: G8553 09/18/2013 PRESCRIP TRANSMIT VIA ERX SY CPT-4: G8553 08/13/2013 ROUTINE VENIPUNCTURE CPT-4: 89596 06/25/2013 ASSAY OF FREE THYROXINE CPT-4: 48106 06/25/2013 ASSAY THYROID STIM HORMONE CPT-4: 63858 06/25/2013 COMPREHEN METABOLIC PANEL CPT-4: 25330 06/25/2013 COMPLETE CBC W/AUTO DIFF WBC CPT-4: 40138 06/25/2013 LIPID PANEL CPT-4: 89723 06/25/2013 A1C GLYCOSYLATED HEMOGLOBIN TEST CPT-4: 59793 013 ROUTINE VENIPUNCTURE CPT-4: 67970 04/09/2013 COMPLETE CBC W/AUTO DIFF WBC CPT-4: 58855 04/09/2013 MYCOPLASMA ANTIBODY, IFA CPT-4: 32799D6 04/09/2013 ROUTINE VENIPUNCTURE CPT-4: 74177 02/11/2013 ASSAY OF FREE THYROXINE CPT-4: 19836 02/11/2013 ASSAY THYROID STIM HORMONE CPT-4: 51372 02/11/2013 COMPREHEN METABOLIC PANEL CPT-4: 25406 02/11/2013 COMPLETE CBC W/AUTO DIFF WBC CPT-4: 81744 02/11/2013 VITAMIN B 12 FOLIC ACID CPT-4: 82467|32928 02/11/2013 C-REACTIVE PROTEIN CPT-4: 73919 02/11/2013 A1C GLYCOSYLATED HEMOGLOBIN TEST CPT-4: 27451 013 ASSAY OF BLOOD/URIC ACID CPT-4: 18332 02/11/2013 CEFTRIAXONE SODIUM INJECTION CPT-4: J0696 01/31/2013 THER/PROPH/DIAG INJ SC/IM CPT-4: 47985 01/31/2013 THER/PROPH/DIAG INJ SC/IM CPT-4: 97568 01/31/2013 METHYLPREDNISOLONE 40 MG INJ CPT-4: J1030 01/31/2013 TRIAMCINOLONE ACET INJ NOS CPT-4: J3301 01/31/2013 ROUTINE VENIPUNCTURE CPT-4: 42172 09/19/2012 COMPREHEN METABOLIC PANEL CPT-4: 41606 09/19/2012 LIPID PANEL CPT-4: 24444 09/19/2012 A1C GLYCOSYLATED HEMOGLOBIN TEST CPT-4: 92483 012 PNEUMOCOCCAL VACC 23 OLIVIA IM CPT-4: 22586 07/10/2012 FLUZONE, 5ML (Medicare) CPT-4: Q2038 07/10/2012 ADMIN INFLUENZA VIRUS VAC CPT-4: G0008 07/10/2012 ADMIN PNEUMOCOCCAL VACCINE CPT-4: G0009 07/10/2012 ROUTINE VENIPUNCTURE CPT-4: 81280 05/06/2012 ASSAY OF FREE THYROXINE CPT-4: 51738 05/06/2012 ASSAY THYROID STIM HORMONE CPT-4: 89360 05/06/2012 COMPREHEN METABOLIC PANEL CPT-4: 33379 05/06/2012 COMPLETE CBC W/AUTO DIFF WBC CPT-4: 47235 05/06/2012 LIPID PANEL CPT-4: 41436 05/06/2012 A1C GLYCOSYLATED HEMOGLOBIN TEST CPT-4: 24697 012 IMMUNIZATION ADMIN CPT-4: 90576 02/05/2012 FLUZONE, 5ML (Medicare) CPT-4: Q2038 08/10/2011 ADMIN INFLUENZA VIRUS VAC CPT-4: G0008 08/10/2011 ROUTINE VENIPUNCTURE CPT-4: 30770 07/26/2011 ASSAY OF FREE THYROXINE CPT-4: 52843 07/26/2011 ASSAY THYROID STIM HORMONE CPT-4: 46545 07/26/2011 COMPREHEN METABOLIC PANEL CPT-4: 52287 07/26/2011 COMPLETE CBC W/AUTO DIFF WBC CPT-4: 39963 07/26/2011 LIPID PANEL CPT-4: 75704 07/26/2011 A1C GLYCOSYLATED HEMOGLOBIN TEST CPT-4: 21312 011 ASSAY OF PSA TOTAL CPT-4: 84691 07/26/2011 ROUTINE VENIPUNCTURE CPT-4: 99793 01/19/2011 ASSAY OF NATRIURETIC PEPTIDE CPT-4: 86675 01/19/2011 THER/PROPH/DIAG INJ SC/IM CPT-4: 01057 01/19/2011 CEFTRIAXONE SODIUM INJECTION CPT-4: J0696 01/19/2011 METHYLPREDNISOLONE INJECTION CPT-4: J2930 01/19/2011 THER/PROPH/DIAG INJ SC/IM CPT-4: 35988 01/19/2011 THER/PROPH/DIAG INJ SC/IM CPT-4: 56869 01/18/2011 CEFTRIAXONE SODIUM INJECTION CPT-4: J0696 01/18/2011 METHYLPREDNISOLONE INJECTION CPT-4: J2930 01/18/2011 THER/PROPH/DIAG INJ SC/IM CPT-4: 01960 01/18/2011 THER/PROPH/DIAG INJ SC/IM CPT-4: 91051 12/21/2010 TESTOSTERONE CYPIONAT 100 MG CPT-4: J1070 12/21/2010 ROUTINE VENIPUNCTURE CPT-4: 61959 12/19/2010 TESTOSTERONE TOTAL - MALE CPT-4: 70781 12/19/2010 ROUTINE VENIPUNCTURE CPT-4: 64123 12/07/2010 COMPLETE CBC W/AUTO DIFF WBC CPT-4: 43603 12/07/2010 COMPREHEN METABOLIC PANEL CPT-4: 54268 12/07/2010 LIPID PANEL CPT-4: 09197 12/07/2010 A1C GLYCOSYLATED HEMOGLOBIN TEST CPT-4: 64767 011 ASSAY OF PSA TOTAL CPT-4: 11970 12/07/2010 ROUTINE VENIPUNCTURE CPT-4: 57163 04/05/2010 PRESCRIP TRANSMIT VIA ERX SY CPT-4: G8553 04/05/2010 ROUTINE VENIPUNCTURE CPT-4: 50730 01/13/2010 METHYLPREDNISOLONE INJECTION CPT-4: J2930 12/22/2009 THER/PROPH/DIAG INJ SC/IM CPT-4: 18720 12/22/2009 THER/PROPH/DIAG INJ SC/IM CPT-4: 48056 12/22/2009 CEFTRIAXONE SODIUM INJECTION CPT-4: J0696 12/22/2009 ROUTINE VENIPUNCTURE CPT-4: 85647 12/22/2009 COMPLETE CBC W/AUTO DIFF WBC CPT-4: 54276 12/22/2009 RBC SED RATE, AUTOMATED CPT-4: 04006 12/22/2009 RPR FE/E/EN/L/M 20.1-30.0 CM CPT-4: 14231 12/22/2009 EKG FOR INITIAL PREVENT EXAM CPT-4: G0403 12/22/2009 THER/PROPH/DIAG INJ SC/IM CPT-4: 79127 12/16/2009 KETOROLAC TROMETHAMINE INJ CPT-4: J1885 12/16/2009 [...] 1: 126/68 Code: 8480-6 BMI: 30.2 Code: 46366-0 Heart Rate 1: 92 bpm Height: 6' Respiratory Rate: 22 bpm SpO2: 94% Tempera ture: 36.9 (C) / 98.5 (F) Weight: 223 lbs 08/21/2018 Blood Pressure 1: 160/70 Code: 8480-6 Heart Rate 1: 79 bpm Respiratory Rate: 20 bpm SpO2: 94% Temperature: 36.7 (C) / 98.0 (F) We ight: 226 lbs 8 oz 08/07/2018 Blood Pressure 1: 138/70 Code: 8480-6 BMI: 30.1 Code: 25104-4 Heart Rate 1: 80 bpm Height: 6' Respiratory Rate: 20 bpm SpO2: 94% Tempera ture: 36.9 (C) / 98.5 (F) Weight: 222 lbs 05/23/2018 Blood Pressure 1: 148/66 Code: 8480-6 BMI: 30.0 Code: 40752-1 Heart Rate 1: 96 bpm Height: 6' Respiratory Rate: 22 bpm SpO2: 94% Tempera ture: 37.3 (C) / 99.1 (F) Weight: 221 lbs 05/02/2018 Blood Pressure 1: 146/78 Code: 8480-6 BMI: 29.6 Code: 42548-6 Heart Rate 1: 78 bpm Height: 6' Respiratory Rate: 26 bpm SpO2: 94% Tempera ture: 35.7 (C) / 96.2 (F) Weight: 218 lbs 04/29/2018 Blood Pressure 1: 142/62 Code: 8480-6 BMI: 28.6 Code: 85347-2 Heart Rate 1: 82 bpm Height: 6' Respiratory Rate: 22 bpm SpO2: 98% Tempera ture: 36.4 (C) / 97.6 (F) Weight: 211 lbs 04/22/2018 Blood Pressure 1: 126/64 Code: 8480-6 BMI: 30.0 Code: 16251-8 Heart Rate 1: 96 bpm Height: 6' [...] 1: 144/78 Code: 8480-6 BMI: 30.7 Code: 85227-2 Heart Rate 1: 92 bpm Height: 6' Respiratory Rate: 28 bpm SpO2: 94% Tempera ture: 36.9 (C) / 98.4 (F) Weight: 226 lbs 12/28/2017 Blood Pressure 1: 136/80 Code: 8480-6 Heart Rate 1: 92 bpm Respiratory Rate: 28 bpm SpO2: 94% Temperature: 36.7 (C) / 98.1 (F) 12/21/2017 Blood Pressure 1: 146/84 Code: 8480-6 BMI: 31.1 Code: 67645-5 Heart Rate 1: 84 bpm Height: 6' [...] 1: 142/64 Code: 8480-6 BMI: 31.3 Code: 48809-2 Heart Rate 1: 98 bpm Height: 6' Respiratory Rate: 24 bpm SpO2: 94% Tempera ture: 36.4 (C) / 97.6 (F) Weight: 231 lbs 10/17/2017 Blood Pressure 1: 140/68 Code: 8480-6 BMI: 31.7 Code: 86825-4 Heart Rate 1: 88 bpm Height: 6' Respiratory Rate: 20 bpm SpO2: 94% Tempera ture: 36.8 (C) / 98.3 (F) Weight: 234 lbs 08/02/2017 Blood Pressure 1: 142/80 Code: 8480-6 BMI: 31.1 Code: 39766-3 Heart Rate 1: 86 bpm Height: 6' Respiratory Rate: 20 bpm SpO2: 90% Tempera ture: 35.9 (C) / 96.7 (F) Weight: 229 lbs 07/02/2017 Blood Pressure 1: 146/64 Code: 8480-6 BMI: 29.6 Code: 96033-0 Heart Rate 1: 96 bpm Height: 6' Respiratory Rate: 20 bpm Temperature: 36 .4 (C) / 97.6 (F) Weight: 218 lbs 05/29/2017 Blood Pressure 1: 152/68 Code: 8480-6 BMI: 31.5 Code: 04041-7 Heart Rate 1: 100 bpm Height: 6' Respiratory Rate: 20 bpm SpO2: 92% Tempera ture: 36.9 (C) / 98.4 (F) Weight: 232 lbs 02/01/2017 Blood Pressure 1: 146/64 Code: 8480-6 BMI: 30.7 Code: 17941-8 Heart Rate 1: 76 bpm Height: 6' Respiratory Rate: 20 bpm SpO2: 95% Tempera ture: 36.8 (C) / 98.2 (F) Weight: 226 lbs 01/29/2017 Blood Pressure 1: 146/78 Code: 8480-6 Heart Rate 1: 84 bpm Respiratory Rate: 20 bpm SpO2: 96% Temperature: 36.1 (C) / 97.0 (F) We ight: 226 lbs 12/21/2016 Blood Pressure 1: 126/60 Code: 8480-6 BMI: 30.8 Code: 98835-8 Heart Rate 1: 88 bpm Height: 6' Respiratory Rate: 22 bpm SpO2: 94% Tempera ture: 36.7 (C) / 98.0 (F) Weight: 227 lbs 12/14/2016 Blood Pressure 1: 126/70 Code: 8480-6 BMI: 29.8 Code: 62729-9 Heart Rate 1: 92 bpm Height: 6' Respiratory Rate: 22 bpm SpO2: 93% Tempera ture: 36.8 (C) / 98.2 (F) Weight: 220 lbs 11/14/2016 Blood Pressure 1: 128/62 Code: 8480-6 Heart Rate 1: 100 bpm Respiratory Rate: 20 bpm SpO2: 96% Temperature: 36.6 (C) / 97.8 (F) We ight: 220 lbs 10/31/2016 Blood Pressure 1: 142/60 Code: 8480-6 BMI: 30.1 Code: 35923-1 Heart Rate 1: 112 bpm Height: 6' Respiratory Rate: 24 bpm SpO2: 93% Tempera ture: 37.1 (C) / 98.7 (F) Weight: 222 lbs 10/03/2016 Blood Pressure 1: 136/78 Code: 8480-6 Heart Rate 1: 106 bpm Respiratory Rate: 24 bpm SpO2: 93% Temperature: 36.6 (C) / 97.8 (F) We ight: 221 lbs 09/04/2016 Blood Pressure 1: 112/44 Code: 8480-6 BMI: 30.1 Code: 14922-2 Heart Rate 1: 90 bpm Height: 6' Respiratory Rate: 20 bpm SpO2: 93% Tempera ture: 36.6 (C) / 97.9 (F) Weight: 222 lbs 08/22/2016 Blood Pressure 1: 142/68 Code: 8480-6 BMI: 30.4 Code: 07491-1 Heart Rate 1: 100 bpm Height: 6' Respiratory Rate: 24 bpm SpO2: 93% Tempera ture: 36.7 (C) / 98.1 (F) Weight: 224 lbs 08/10/2016 Blood Pressure 1: 134/60 Code: 8480-6 BMI: 30.2 Code: 74581-6 Heart Rate 1: 76 bpm Height: 6' [...] 1: 122/72 Code: 8480-6 BMI: 30.7 Code: 54406-6 Heart Rate 1: 96 bpm Height: 6' Respiratory Rate: 22 bpm SpO2: 96% Tempera ture: 35.9 (C) / 96.7 (F) Weight: 226 lbs 04/03/2016 Blood Pressure 1: 146/64 Code: 8480-6 BMI: 30.8 Code: 93895-6 Heart Rate 1: 76 bpm Height: 6' Respiratory Rate: 20 bpm Temperature: 36 .8 (C) / 98.2 (F) Weight: 227 lbs 03/02/2016 Blood Pressure 1: 148/60 Code: 8480-6 BMI: 31.1 Code: 14500-0 Heart Rate 1: 80 bpm Height: 6' Respiratory Rate: 22 bpm SpO2: 94% Tempera ture: 36.6 (C) / 97.8 (F) Weight: 229 lbs 02/17/2016 Blood Pressure 1: 132/60 Code: 8480-6 BMI: 31.3 Code: 96335-1 Heart Rate 1: 80 bpm Height: 6' Respiratory Rate: 20 bpm Temperature: 36 .9 (C) / 98.4 (F) Weight: 231 lbs 02/14/2016 Blood Pressure 1: 126/70 Code: 8480-6 BMI: 31.3 Code: 81697-5 Heart Rate 1: 80 bpm Height: 6' Respiratory Rate: 24 bpm SpO2: 95% Tempera ture: 36.9 (C) / 98.5 (F) Weight: 231 lbs 01/31/2016 Blood Pressure 1: 136/60 Code: 8480-6 Heart Rate 1: 76 bpm Respiratory Rate: 22 bpm Temperature: 37.0 (C) / 98.6 (F) Weight: 230 lbs 12/30/2015 Blood Pressure 1: 128/58 Code: 8480-6 BMI: 31.2 Code: 59010-6 Heart Rate 1: 80 bpm Height: 6' Respiratory Rate: 20 bpm Temperature: 36 .8 (C) / 98.2 (F) Weight: 230 lbs 12/16/2015 Blood Pressure 1: 122/60 Code: 8480-6 BMI: 32.0 Code: 47844-3 Heart Rate 1: 84 bpm Height: 6' Respiratory Rate: 24 bpm Temperature: 37 .1 (C) / 98.7 (F) Weight: 236 lbs 12/06/2015 Blood Pressure 1: 162/74 Code: 8480-6 BMI: 32.5 Code: 12258-1 Heart Rate 1: 90 bpm Height: 6' Respiratory Rate: 20 bpm SpO2: 96% Tempera ture: 36.4 (C) / 97.6 (F) Weight: 240 lbs 11/15/2015 Blood Pressure 1: 166/80 Code: 8480-6 BMI: 32.4 Code: 67325-6 Heart Rate 1: 92 bpm Height: 6' Respiratory Rate: 28 bpm Temperature: 36 .5 (C) / 97.7 (F) Weight: 239 lbs 10/05/2015 Blood Pressure 1: 146/76 Code: 8480-6 BMI: 32.4 Code: 88011-7 Heart Rate 1: 88 bpm Height: 6' Respiratory Rate: 28 bpm Temperature: 37 .1 (C) / 98.7 (F) Weight: 239 lbs 07/22/2015 Blood Pressure 1: 144/68 Code: 8480-6 BMI: 31.9 Code: 24908-4 Heart Rate 1: 88 bpm Height: 6' [...] 1: 142/64 Code: 8480-6 BMI: 32.1 Code: 32291-8 Heart Rate 1: 80 bpm Height: 6' Respiratory Rate: 18 bpm Temperature: 36 .4 (C) / 97.6 (F) Weight: 237 lbs 06/07/2015 Blood Pressure 1: 164/58 Code: 8480-6 BMI: 32.1 Code: 84199-8 Heart Rate 1: 88 bpm Height: 6' Respiratory Rate: 20 bpm Temperature: 36 .6 (C) / 97.9 (F) Weight: 237 lbs 06/03/2015 Blood Pressure 1: 152/64 Code: 8480-6 BMI: 32.1 Code: 98505-0 Heart Rate 1: 96 bpm Height: 6' Respiratory Rate: 20 bpm Temperature: 37 .4 (C) / 99.3 (F) Weight: 237 lbs 06/01/2015 Blood Pressure 1: 136/70 Code: 8480-6 BMI: 31.7 Code: 32344-1 Heart Rate 1: 72 bpm Height: 6' Respiratory Rate: 22 bpm SpO2: 94% Tempera ture: 36.6 (C) / 97.9 (F) Weight: 234 lbs 02/25/2015 Blood Pressure 1: 146/80 Code: 8480-6 BMI: 32.4 Code: 63435-6 Heart Rate 1: 84 bpm Height: 6' Respiratory Rate: 28 bpm Temperature: 36 .7 (C) / 98.0 (F) Weight: 239 lbs 10/27/2014 Blood Pressure 1: 168/70 Code: 8480-6 BMI: 32.0 Code: 63982-8 Heart Rate 1: 80 bpm Height: 6' Respiratory Rate: 30 bpm SpO2: 98% Tempera ture: 36.4 (C) / 97.6 (F) Weight: 236 lbs 10/21/2014 Blood Pressure 1: 152/58 Code: 8480-6 BMI: 32.1 Code: 83160-1 Heart Rate 1: 78 bpm Height: 6' Respiratory Rate: 20 bpm Temperature: 37 .8 (C) / 100.1 (F) Weight: 237 lbs 10/06/2014 Blood Pressure 1: 132/64 Code: 8480-6 BMI: 32.5 Code: 35832-6 Heart Rate 1: 88 bpm Height: 6' Respiratory Rate: 32 bpm SpO2: 94% Tempera ture: 36.8 (C) / 98.2 (F) Weight: 240 lbs 09/21/2014 Blood Pressure 1: 134/68 Code: 8480-6 BMI: 32.4 Code: 82756-8 Heart Rate 1: 96 bpm Height: 6' Respiratory Rate: 30 bpm Temperature: 36 .7 (C) / 98.1 (F) Weight: 239 lbs 09/08/2014 Blood Pressure 1: 128/74 Code: 8480-6 BMI: 32.4 Code: 01817-7 Heart Rate 1: 82 bpm Height: 6' Respiratory Rate: 28 bpm SpO2: 93% Tempera ture: 36.6 (C) / 97.8 (F) Weight: 239 lbs 09/02/2014 Blood Pressure 1: 164/78 Code: 8480-6 Heart Rate 1: 86 bpm Respiratory Rate: 22 bpm SpO2: 96% Temperature: 36.1 (C) / 97.0 (F) We ight: 239 lbs 08/10/2014 Blood Pressure 1: 152/60 Code: 8480-6 BMI: 32.8 Code: 30788-3 Heart Rate 1: 80 bpm Height: 6' [...] 1: 146/80 Code: 8480-6 BMI: 33.9 Code: 61424-8 Heart Rate 1: 80 bpm Height: 6' [...] 1: 148/78 Code: 8480-6 BMI: 30.5 Code: 63905-0 Heart Rate 1: 84 bpm Height: 6' Respiratory Rate: 28 bpm SpO2: 97% Tempera ture: 36.4 (C) / 97.5 (F) Weight: 225 lbs 08/06/2013 Blood Pressure 1: 158/70 Code: 8480-6 Heart Rate 1: 110 bpm Respiratory Rate: 22 bpm SpO2: 88% Temperature: 39.7 (C) / 103.4 (F) W eight: 07/16/2013 Blood Pressure 1: 148/82 Code: 8480-6 BMI: 31.9 Code: 41069-6 Heart Rate 1: 80 bpm Height: 6' Respiratory Rate: 20 bpm Temperature: 36 .6 (C) / 97.9 (F) Weight: 235 lbs 04/09/2013 Blood Pressure 1: 142/78 Code: 8480-6 BMI: 31.5 Code: 22474-1 Heart Rate 1: 88 bpm Height: 6' Respiratory Rate: 32 bpm SpO2: 95% Tempera ture: 37.0 (C) / 98.6 (F) Weight: 232 lbs 02/11/2013 Blood Pressure 1: 146/70 Code: 8480-6 Heart Rate 1: 88 bpm Respiratory Rate: 20 bpm Temperature: 36.8 (C) / 98.3 (F) Weight: 230 lbs 01/31/2013 Blood Pressure 1: 128/70 Code: 8480-6 BMI: 31.6 Code: 72555-4 Heart Rate 1: 84 bpm Height: 6' Respiratory Rate: 24 bpm SpO2: 92% Tempera ture: 36.7 (C) / 98.0 (F) Weight: 233 lbs 01/20/2013 Blood Pressure 1: 148/64 Code: 8480-6 BMI: 31.6 Code: 93272-1 Heart Rate 1: 68 bpm Height: 6' Temperature: 36.1 (C) / 97.0 (F) Weight: 233 lbs 12/19/2012 Blood Pressure 1: 128/68 Code: 8480-6 BMI: 32.0 Code: 24259-5 Heart Rate 1: 64 bpm Height: 6' Temperature: 36.7 (C) / 98.0 (F) Weight: 236 lbs 10/21/2012 Blood Pressure 1: 142/64 Code: 8480-6 BMI: 30.9 Code: 32069-2 Heart Rate 1: 74 bpm Height: 6' Temperature: 36.2 (C) / 97.1 (F) Weight: 228 lbs 09/18/2012 Blood Pressure 1: 126/60 Code: 8480-6 BMI: 31.3 Code: 37581-6 Heart Rate 1: 88 bpm Height: 6' Respiratory Rate: 20 bpm Temperature: 36 .5 (C) / 97.7 (F) Weight: 231 lbs 08/28/2012 Blood Pressure 1: 132/68 Code: 8480-6 BMI: 31.5 Code: 72354-0 Heart Rate 1: 92 bpm Height: 6' Respiratory Rate: 30 bpm SpO2: 94% Tempera ture: 37.1 (C) / 98.7 (F) Weight: 232 lbs 07/10/2012 Blood Pressure 1: 118/70 Code: 8480-6 BMI: 30.5 Code: 24603-3 Heart Rate 1: 72 bpm Height: 6' Respiratory Rate: 24 bpm SpO2: 96% Tempera ture: 36.7 (C) / 98.0 (F) Weight: 225 lbs 05/09/2012 Blood Pressure 1: 124/68 Code: 8480-6 BMI: 29.8 Code: 89319-8 Heart Rate 1: 72 bpm Height: 6' Respiratory Rate: 20 bpm Temperature: 36 .8 (C) / 98.2 (F) Weight: 220 lbs 10/02/2011 Blood Pressure 1: 140/82 Code: 8480-6 BMI: 30.7 Code: 70471-8 Heart Rate 1: 68 bpm Height: 6' Temperature: 36.7 (C) / 98.0 (F) Weight: 226 lbs 08/07/2011 Blood Pressure 1: 122/68 Code: 8480-6 BMI: 30.5 Code: 67415-6 Heart Rate 1: 72 bpm Height: 6' [...] 1: 140/78 Code: 8480-6 BMI: 31.9 Code: 51097-3 Heart Rate 1: 84 bpm Height: 6' Temperature: 36.6 (C) / 97.8 (F) Weight: 235 lbs 12/22/2009 Blood Pressure 1: 140/74 Code: 8480-6 BMI: 31.9 Code: 88559-6 Heart Rate 1: 94 bpm Height: 6' SpO2: 92% Temperature: 35.7 (C) / 96.2 (F) Weight: 235 lbs 12/13/2009 Blood Pressure 1: 146/80 Code: 8480-6 BMI: 33.0 Code: 60039-9 Heart Rate 1: 86 bpm Height: 6' [...] shot follow up 05/08/2019 follow up 04/07/2019 [facility] dizziness 03/24/2019 dizziness 03/21/2019 sore throat 03/13/2019 Patient finished zit hromax last night and has one dose of prednisone left follow up 03/10/2019 ER fw---patient cu rrently taking zithromax, prednisone and breathing treatments every two hours spasms/spasticity 02/26/2019 follow up 02/13/2019 follow up 01/14/2019 [facility] follow up 12/25/2018 cough 12/09/2018 here [...] constantly with her. 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 follow up 05/29/2017 Discuss Low Back [...] nightly. Patient has just been discharged from [place] with Pneumonia. Currently on Levaquin once daily. [...] 03/13/2016 Patient here for [facility] on medication education for insulin use lab [...] 02/25/2015 3mo fwup follow up 10/27/2014 [facility] cough 10/21/2014 follow up 10/06/2014 follow up 09/21/2014 [facility] follow up 09/08/2014 [facility] cough 09/02/2014 well man exam (65+ years) 08/10/2014 lab draw 08/05/2014 flu shot follow up 05/05/2014 6wk fwup follow up 03/24/2014 2wk up shortness of breath 03/10/2014 shoulder pain 12/16/2013 Request back brace w hen working/lifting---chiropractor had recommended he get one to wear shortness of breath 10/09/2013 cough 09/18/2013 follow up 08/13/2013 [facility] cough 08/06/2013 follow up 07/16/2013 lab [...] 12/13/2009 Encounters Encounter Performer Location Codes Date ([id number]) OFFICE/OUTPATIENT VISIT EST Diagnosis: Chronic obstructive pulmonary disease, unspecified[ICD10: J44.9] Lita BARAKAT DO [facility] CPT-4: 08120 03/04/2020 ([id number]) OFFICE/OUTPATIENT VISIT EST Diagnosis: Chronic obstructive pulmonary disease, unspecified[ICD10: J44.9] Lita BARAKAT DO [facility] CPT-4: 68072 02/04/2020 ([id number]) OFFICE/OUTPATIENT VISIT EST Diagnosis: Chronic obstructive pulmonary disease with (acute) exacerbation[ICD10: J44.1] Lita BARAKAT DO [facility] CPT- 4: 80213 12/25/2019 ([id number]) OFFICE/OUTPATIENT VISIT EST Diagnosis: Noncompliance with diabetes treatment[ICD10: Z91.19] Diagnosis: Insomnia[ICD10: G47.00] Diagnosis: Pain in right knee[ICD10: M25.561] Lita Barakat [facility] CPT-4: 92278 12/22/2019 ([id number]) OFFICE/OUTPATIENT VISIT EST Diagnosis: Chronic respiratory failure with hypercapnia[ICD10: J96.12] Diagnosis: Chronic airway obstruction, not elsewhere classified[ICD10: J44.9] Diagnosis: Basal cell carcinoma, face[ICD10: C44.310] Lita BARAKAT DO [facility] CPT-4: 82665 11/12/2019 ([id number]) OFFICE/OUTPATIENT VISIT EST Diagnosis: Chronic obstructive pulmonary disease, unspecified[ICD10: J44.9] Diagnosis: Right thyroid nodule[ICD10: E04.1] Lita BARAKAT DO [facility] CPT-4: 06683 09/11/2019 ([id number]) OFFICE/OUTPATIENT VISIT EST Diagnosis: Chronic bronchitis[ICD10: J42] 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] Diagnosis: FLU VACCINE[ICD10: Z23] Lita PABLO DO [facility] CPT-4: 62127 08/07/2019 ([id number]) OFFICE/OUTPATIENT VISIT EST Diagnosis: Chronic obstructive pulmonary disease with (acute) exacerbation[ICD10: J44.1] Autumn BARAKAT DO [facility] CPT- 4: 33278 07/14/2019 ([id number]) OFFICE/OUTPATIENT VISIT EST Diagnosis: Primary insomnia[ICD10: F51.01] Diagnosis: Dyspepsia and other specified disorders of function of stomach[ICD10: K31.89] Lita BARAKAT DO [facility] CPT-4: 99771 07/01/2019 ([id number]) OFFICE/OUTPATIENT VISIT EST Diagnosis: Epigastric pain[ICD10: R10.13] Diagnosis: Nausea[ICD10: R11.0] Diagnosis: Weight loss[ICD10: R63.4] Lita AREVALO [facility] CPT-4: 70352 06/24/2019 ([id number]) OFFICE/OUTPATIENT VISIT EST Diagnosis: Chronic obstructive pulmonary disease, unspecified[ICD10: J44.9] Diagnosis: Chronic insomnia[ICD10: F51.04] Diagnosis: Anemia[ICD10: D64.9] Diagnosis: Diplopia[ICD10: H53.2] Diagnosis: [place][ICD10: F30.9] Lita BARAKAT DO [facility] CPT-4: 15960 06/17/2019 ([id number]) NURSE/OUTPATIENT VISIT EST Diagnosis: Vitamin B12 deficiency anemia, unspecified[ICD10: D51.9] Lita BARAKAT DO [facility] CPT-4: 96000 06/10/2019 ([id number]) NURSE/OUTPATIENT VISIT EST Diagnosis: Vitamin B12 deficiency anemia, unspecified[ICD10: D51.9] Lita BARAKAT DO [facility] CPT-4: 98144 06/02/2019 ([id number]) NURSE/OUTPATIENT VISIT EST Diagnosis: Vitamin B12 deficiency anemia, unspecified[ICD10: D51.9] Lita BARAKAT DO [facility] CPT-4: 53271 05/27/2019 ([id number]) NURSE/OUTPATIENT VISIT EST Diagnosis: Vitamin B12 deficiency anemia, unspecified[ICD10: D51.9] Lita BARAKAT [facility] CPT-4: 96612 05/12/2019 ([id number]) OFFICE/OUTPATIENT VISIT EST Diagnosis: Restless legs syndrome[ICD10: G25.81] Diagnosis: Primary insomnia[ICD10: F51.01] Diagnosis: Anemia, unspecified[ICD10: D64.9] Diagnosis: Type 2 diabetes mellitus with hyperglycemia[ICD10: E11.65] Diagnosis: Vitamin D deficiency, unspecified[ICD10: E55.9] Lita BARAKAT [facility] CPT-4: 92950 05/08/2019 ([id number]) OFFICE/OUTPATIENT VISIT EST Diagnosis: Pain in right knee[ICD10: M25.561] Diagnosis: Restless legs syndrome[ICD10: G25.81] Diagnosis: Insomnia, unspecified[ICD10: G47.00] Lita BARAKAT [facility] CPT-4: 77061 04/07/2019 ([id number]) NO CHARGE Diagnosis: Chronic obstructive pulmonary disease with (acute) exacerbation[ICD10: J44.1] Diagnosis: Dizziness and giddiness[ICD10: R42] Diagnosis: Generalized anxiety disorder[ICD10: F41.1] Autumn BARAKAT [facility] CPT-4: 64149 03/24/2019 ([id number]) OFFICE/OUTPATIENT VISIT EST Diagnosis: Chronic obstructive pulmonary disease with (acute) exacerbation[ICD10: J44.1] Diagnosis: Dizziness and giddiness[ICD10: R42] Autumn CORRAL ELTON Ashley BARAKAT [facility] CPT-4: 58932 03/21/2019 ([id number]) OFFICE/OUTPATIENT VISIT EST Diagnosis: Candidal stomatitis[ICD10: B37.0] Lita ALYLIN Daja BARAKAT [facility] CPT-4: 21362 03/13/2019 ([id number]) OFFICE/OUTPATIENT VISIT EST Diagnosis: Chronic obstructive pulmonary disease with acute lower respiratory infection[ICD10: J44.0] Diagnosis: Restless legs syndrome[ICD10: G25.81] Lita Barakat TADEO TRAN Ashley BARAKAT [facility] CPT-4: 70441 03/10/2019 ([id number]) OFFICE/OUTPATIENT VISIT EST Diagnosis: Restless legs syndrome[ICD10: G25.81] Lita BARAKAT DO [facility] CPT-4: 95420 02/26/2019 ([id number]) OFFICE/OUTPATIENT VISIT EST Diagnosis: Primary insomnia[ICD10: F51.01] Diagnosis: Chronic obstructive pulmonary disease, unspecified[ICD10: J44.9] Lita BARAKAT DO [facility] CPT-4: 31571 02/13/2019 ([id number]) OFFICE/OUTPATIENT VISIT EST Diagnosis: Chronic obstructive pulmonary disease, unspecified[ICD10: J44.9] Diagnosis: Chronic respiratory failure with hypoxia[ICD10: J96.11] Diagnosis: Chronic respiratory failure with hypercapnia[ICD10: J96.12] Lita BARAKAT [facility] CPT-4: 64295 01/14/2019 ([id number]) OFFICE/OUTPATIENT VISIT EST Diagnosis: Chronic respiratory failure with hypoxia[ICD10: J96.11] Diagnosis: Patient's noncompliance with other medical treatment and regimen[ICD10: Z91.19] Diagnosis: Chronic obstructive pulmonary disease with (acute) exacerbation[ICD10: J44.1] Lita BARAKAT [facility] CPT- 4: 18302 12/25/2018 ([id number]) OFFICE/OUTPATIENT VISIT EST Diagnosis: Essential (primary) hypertension[ICD10: I10] Diagnosis: Type 2 diabetes mellitus with hyperglycemia[ICD10: E11.65] Diagnosis: Hypothyroidism, unspecified[ICD10: E03.9] Diagnosis: Hyperlipidemia, unspecified[ICD10: E78.5] Diagnosis: Acute recurrent maxillary sinusitis[ICD10: J01.01] Ines Banerjee LITA BARAKAT TAK[facility] CPT-4: 74625 12/09/2018 ([id number]) OFFICE/OUTPATIENT VISIT EST Diagnosis: Candidal stomatitis[ICD10: B37.0] Lita BARAKAT [facility] CPT-4: 47624 12/05/2018 ([id number]) OFFICE/OUTPATIENT VISIT EST Diagnosis: Acute recurrent sinusitis, unspecified[ICD10: J01.91] Diagnosis: Pain in right knee[ICD10: M25.561] Lita BROWN JANET Ashley BARAKAT [facility] CPT-4: 05702 10/23/2018 ([id number]) OFFICE/OUTPATIENT VISIT EST Diagnosis: Restless legs syndrome[ICD10: G25.81] Diagnosis: Basal cell carcinoma of skin of scalp and neck[ICD10: C44.41] Lita BARAKAT DO [facility] CPT-4: 70562 08/21/2018 ([id number]) OFFICE/OUTPATIENT VISIT EST Diagnosis: Chronic obstructive pulmonary disease with acute lower respiratory infection[ICD10: J44.0] Diagnosis: Restless legs syndrome[ICD10: G25.81] Lita BARAKAT [facility] CPT-4: 51058 08/07/2018 ([id number]) OFFICE/OUTPATIENT VISIT EST Diagnosis: Chronic obstructive pulmonary disease with acute lower respiratory infection[ICD10: J44.0] Lita BARAKAT [facility] CPT-4: 02298 05/23/2018 ([id number]) OFFICE/OUTPATIENT VISIT EST Diagnosis: Candidal stomatitis[ICD10: B37.0] Lita BARAKAT [facility] CPT-4: 64162 05/02/2018 ([id number]) OFFICE/OUTPATIENT VISIT EST Diagnosis: Candidal stomatitis[ICD10: B37.0] Diagnosis: Other retention of urine[ICD10: R33.8] Diagnosis: Chronic obstructive pulmonary disease with acute lower respiratory infection[ICD10: J44.0] Autumn BARAKAT [facility] CPT-4: 03224 04/29/2018 ([id number]) OFFICE/OUTPATIENT VISIT EST Diagnosis: Chronic obstructive pulmonary disease with acute lower respiratory infection[ICD10: J44.0] Lita BARAKAT DO [facility] CPT-4: 13920 04/22/2018 ([id number]) OFFICE/OUTPATIENT VISIT EST Diagnosis: Unilateral primary osteoarthritis, right knee[ICD10: M17.11] Diagnosis: Squamous cell carcinoma of skin, unspecified[ICD10: C44.92] Lita BARAKAT DO [facility] CPT-4: 39223 01/28/2018 ([id number]) OFFICE/OUTPATIENT VISIT EST Diagnosis: Pain in right knee[ICD10: M25.561] Diagnosis: 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] Lita BARAKAT DO [facility] CPT-4: 10022 01/23/2018 ([id number]) OFFICE/OUTPATIENT VISIT EST Diagnosis: Urinary tract infection, site not specified[ICD10: N39.0] Diagnosis: Chronic obstructive pulmonary disease with acute lower respiratory infection[ICD10: J44.0] Lita BARAKAT DO [facility] CPT-4: 82895 01/02/2018 ([id number]) OFFICE/OUTPATIENT VISIT EST Diagnosis: Chronic obstructive pulmonary disease with (acute) exacerbation[ICD10: J44.1] Autumn BARAKAT DO [facility] CPT- 4: 91563 12/28/2017 ([id number]) OFFICE/OUTPATIENT VISIT EST Diagnosis: Acute bronchitis, unspecified[ICD10: J20.9] Autumn BARAKAT DO [facility] CPT-4: 47239 12/21/2017 ([id number]) OFFICE/OUTPATIENT VISIT EST Diagnosis: Chronic obstructive pulmonary disease with acute lower respiratory infection[ICD10: J44.0] Diagnosis: Pain in right knee[ICD10: M25.561] Autumn BARAKAT DO [facility] CPT-4: 26181 12/17/2017 ([id number]) OFFICE/OUTPATIENT VISIT EST Diagnosis: Laceration without foreign body of right hand, sequela[ICD10: S61.411S] Diagnosis: Restless legs syndrome[ICD10: G25.81] Lita AGNE Ashley BARAKAT DO [facility] CPT-4: 76371 10/17/2017 OFFICE/OUTPATIENT VISIT EST Diagnosis: Chronic obstructive pulmonary disease with acute lower respiratory infection[ICD10: J44.0] Autumn BARAKAT DO [facility] CPT-4: 99673 08/02/2017 ([id number]) OFFICE/OUTPATIENT VISIT EST Diagnosis: PNEUMOCOCCAL VACCINE[ICD10: Z23] Lita ALYLINE Ashley BARAKAT [facility] CPT-4: 42432 07/24/2017 OFFICE/OUTPATIENT VISIT EST Diagnosis: Chronic obstructive pulmonary disease with (acute) exacerbation[ICD10: J44.1] Autumn BARAKAT [facility] CPT- 4: 11808 07/02/2017 OFFICE/OUTPATIENT VISIT EST Diagnosis: Low back pain[ICD10: M54.5] Ruchi Chanel ManFerdinand De Los Santos BRANDIN [facility] CPT-4: 19293 05/29/2017 ([id number]) OFFICE/OUTPATIENT VISIT EST Diagnosis: Essential (primary) hypertension[ICD10: I10] Diagnosis: Hypothyroidism, unspecified[ICD10: E03.9] Diagnosis: Dizziness and giddiness[ICD10: R42] Diagnosis: Other abnormality of red blood cells[ICD10: R71.8] Diagnosis: Contracture of muscle, unspecified site[ICD10: M62.40] Lita ALYLINE Ashley BARAKAT [facility] CPT-4: 32111 04/17/2017 OFFICE/OUTPATIENT VISIT EST Diagnosis: Pain in left shoulder[ICD10: M25.512] Ruchi PIEDRA MARC DonovanFerdinand GASPER [facility] CPT-4: 72220 01/29/2017 ([id number]) OFFICE/OUTPATIENT VISIT EST Diagnosis: Anemia, unspecified[ICD10: D64.9] Lita Jasminbetty Segura DonovanFerdinand GASPER [facility] CPT-4: 42231 12/27/2016 ([id number]) OFFICE/OUTPATIENT VISIT EST Diagnosis: Other fatigue[ICD10: R53.83] Diagnosis: Other iron deficiency anemias[ICD10: D50.8] Lita Jasminjosefbrii LITA DonovanFerdinand GASPER [facility] CPT-4: 32028 12/21/2016 ([id number]) OFFICE/OUTPATIENT VISIT EST Diagnosis: Anemia, unspecified[ICD10: D64.9] Diagnosis: Other fatigue[ICD10: R53.83] Diagnosis: Restless legs syndrome[ICD10: G25.81] Lita TRAN DonovanFerdinand GASPER [facility] CPT-4: 23549 12/14/2016 ([id number]) OFFICE/OUTPATIENT VISIT EST Diagnosis: Anemia, unspecified[ICD10: D64.9] Diagnosis: Other abnormality of red blood cells[ICD10: R71.8] Lita BARAKAT [facility] CPT-4: 28723 12/12/2016 ([id number]) OFFICE/OUTPATIENT VISIT EST Diagnosis: Pneumonia, unspecified organism[ICD10: J18.9] Diagnosis: Restless legs syndrome[ICD10: G25.81] Magda BARAKAT [facility] CPT-4: 14425 11/14/2016 ([id number]) OFFICE/OUTPATIENT VISIT EST Diagnosis: Candidal stomatitis[ICD10: B37.0] Lita GOODE Daja Ashley BARAKAT [facility] CPT-4: 51448 10/31/2016 ([id number]) OFFICE/OUTPATIENT VISIT EST Diagnosis: Acute upper respiratory infection, unspecified[ICD10: J06.9] Diagnosis: Personal history of pneumonia (recurrent)[ICD10: Z87.01] Magda BARAKAT [facility] CPT-4: 43705 10/03/2016 ([id number]) OFFICE/OUTPATIENT VISIT EST Diagnosis: Restless legs syndrome[ICD10: G25.81] Diagnosis: Insomnia, unspecified[ICD10: G47.00] Magda BARAKAT [facility] CPT-4: 88031 09/04/2016 ([id number]) OFFICE/OUTPATIENT VISIT EST Diagnosis: Restless legs syndrome[ICD10: G25.81] Diagnosis: Primary insomnia[ICD10: F51.01] Lita ALYLINE Ashley BARAKAT [facility] CPT-4: 80969 08/10/2016 OFFICE/OUTPATIENT VISIT EST Diagnosis: Toxic gastroenteritis and colitis[ICD10: K52.1] Diagnosis: Dizziness and giddiness[ICD10: R42] Diagnosis: Headache[ICD10: R51] Diagnosis: Restless legs syndrome[ICD10: G25.81] Lita AGNE Ashley BARAKAT [facility] CPT-4: 79209 07/06/2016 ([id number]) OFFICE/OUTPATIENT VISIT EST Diagnosis: Chest pain, unspecified[ICD10: R07.9] Diagnosis: Dyspnea, unspecified[ICD10: R06.00] [facility]: 94322 06/22/2016 ([id number]) OFFICE/OUTPATIENT VISIT EST 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] Diagnosis: PNEUMOCOCCAL VACCINE[ICD10: Z23] Diagnosis: FLU VACCINE[ICD10: Z23] Lita ALYLINE Ashley FUNEZ [facility] CPT-4: 70962 06/13/2016 ([id number]) OFFICE/OUTPATIENT VISIT EST Diagnosis: Chest pain, unspecified[ICD10: R07.9] Diagnosis: Other forms of dyspnea[ICD10: R06.09] Diagnosis: Shortness of breath[ICD10: R06.02] Diagnosis: Other fatigue[ICD10: R53.83] Magda ALYLINE Ashley [facility] CPT-[facility]: 21444 06/01/2016 ([id number]) OFFICE/OUTPATIENT VISIT EST Diagnosis: Unspecified hearing loss, left ear[ICD10: H91.92] Diagnosis: Other specified disorders of Eustachian tube, left ear[ICD10: H69.82] Mag[facility] CPT-[facility]: 21828 11/2015 ([id number]) OFFICE/OUTPATIENT VISIT EST Diagnosis: Impacted cerumen, bilateral[ICD10: H61.23] Diagnosis: DM W/O COMPLICATION TYPE I, 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: E10.9] Diagnosis: Generalized anxiety disorder[ICD10: F41.1] Lita ALYLINE Ashley [facility] CPT-4: 70521 04/03/2016 ([id number]) OFFICE/OUTPATIENT VISIT EST Diagnosis: 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] Lita Gasper ALYLINE Ashley [facility] CPT - 4: 28486 03/13/2016 ([id number]) OFFICE/OUTPATIENT VISIT EST Diagnosis: Type 2 diabetes mellitus with hyperglycemia[ICD10: E11.65] Diagnosis: Hyperlipidemia, unspecified[ICD10: E78.5] Diagnosis: Essential (primary) hypertension[ICD10: I10] Diagnosis: Chronic obstructive pulmonary disease, unspecified[ICD10: J44.9] Diagnosis: Testicular hypofunction[ICD10: E29.1] Diagnosis: Male erectile dysfunction, unspecified[ICD10: N52.9] Diagnosis: Anemia, unspecified[ICD10: D64.9] Lita Jasminjosefbrii RUSSELZOLTAN BARAKAT TAKO [facility] CPT-4: 82366 03/06/2016 ([id number]) OFFICE/OUTPATIENT VISIT EST Diagnosis: Type 2 diabetes mellitus with hyperglycemia[ICD10: E11.65] Diagnosis: Hyperlipidemia, unspecified[ICD10: E78.5] Diagnosis: Chronic obstructive pulmonary disease, unspecified[ICD10: J44.9] Diagnosis: Male erectile dysfunction, unspecified[ICD10: N52.9] Lita BARAKAT [facility] CPT-4: 24441 03/02/2016 ([id number]) OFFICE/OUTPATIENT VISIT EST Diagnosis: Pain in right foot[ICD10: M79.671] Magda GONZALES Ashley BARAKAT [facility] CPT-4: 07893 02/14/2016 OFFICE/OUTPATIENT VISIT EST Diagnosis: Generalized anxiety disorder[ICD10: F41.1] Lita Gasper ALYLINE Ashley BARAKAT [facility] CPT-4: 85996 01/31/2016 ([id number]) OFFICE/OUTPATIENT VISIT EST Diagnosis: Generalized anxiety disorder[ICD10: F41.1] Lita Gasper ALYLINE Ashley BARAKAT [facility] CPT-4: 89700 12/30/2015 ([id number]) OFFICE/OUTPATIENT VISIT EST Diagnosis: Localized swelling, mass and lump, neck[ICD10: R22.1] Lita Gasper ALYLINE Ashley BARAKAT [facility] CPT-4: 12805 12/16/2015 OFFICE/OUTPATIENT VISIT EST Diagnosis: Localized enlarged lymph nodes[ICD10: R59.0] Diagnosis: Otalgia, left ear[ICD10: H92.02] Stephanie HERRMANNQUELINE Ashley BARAKAT [facility] CPT-4: 24611 12/06/2015 OFFICE/OUTPATIENT VISIT EST Diagnosis: Localized enlarged lymph nodes[ICD10: R59.0] Diagnosis: Squamous cell carcinoma of skin, unspecified[ICD10: C44.92] Diagnosis: Actinic keratosis[ICD10: L57.0] Stephanie BARAKAT DO [facility] CPT-4: 82349 11/15/2015 OFFICE/OUTPATIENT VISIT EST Diagnosis: Cellulitis of left lower limb[ICD10: L03.116] Diagnosis: Encounter for examination and observation for other specified reasons[ICD10: Z04.8] Diagnosis: Chronic obstructive pulmonary disease, unspecified[ICD10: J44.9] Stephanie BARAKAT DO [facility] CPT-4: 41597 07/22/2015 OFFICE/OUTPATIENT VISIT EST Diagnosis: Other specified joint disorders, left knee[ICD10: M25.862] Diagnosis: Cellulitis of left lower limb[ICD10: L03.116] Diagnosis: Other fatigue[ICD10: R53.83] Diagnosis: Hyperlipidemia, unspecified[ICD10: E78.5] Stephanie BARAKAT DO [facility] CPT-4: 30451 07/01/2015 OFFICE/OUTPATIENT VISIT EST Diagnosis: Pain in left knee[ICD10: M25.562] Diagnosis: Cellulitis of left lower limb[ICD10: L03.116] Diagnosis: Other specified joint disorders, left knee[ICD10: M25.862] Stephanie BARAKAT DO [facility] CPT-4: 34182 06/28/2015 OFFICE/OUTPATIENT VISIT EST Diagnosis: PREPATELLAR BURSITIS[ICD9: 726.65] Diagnosis: Cellulitis of knee, left[ICD9: 682.6] Stephanie EspinozaTaurus HERRMANNONIEL AGNE DonovanFerdinand GASPER JOHNSON [facility] CPT-4: 63449 06/09/2015 ([id number]) OFFICE/OUTPATIENT VISIT EST Diagnosis: PREPATELLAR BURSITIS[ICD9: 726.65] Diagnosis: Cellulitis of knee, left[ICD9: 682.6] Lita Jasminbetty TRAN DonovanFerdinand GASPER [facility] CPT-4: 67156 06/07/2015 OFFICE/OUTPATIENT VISIT EST Diagnosis: Cellulitis of knee, left[ICD9: 682.6] Stephanie Gabriel BARAKAT [facility] CPT-4: 22728 06/03/2015 ([id number]) OFFICE/OUTPATIENT VISIT EST Diagnosis: DM W/O COMPLICATION TYPE II, UNCONTROLLED[ICD9: 250.02] Diagnosis: COPD[ICD9: 496] Lita BARAKAT [facility] CPT- 4: 01167 06/01/2015 ([id number]) OFFICE/OUTPATIENT VISIT EST Diagnosis: COPD[ICD9: 496] Diagnosis: DYSPNEA[ICD9: 786.09] Diagnosis: DM W/O COMPLICATION TYPE II, UNCONTROLLED[ICD9: 250.02] Diagnosis: Actinic keratosis[ICD9: 702.0] Lita BARAKAT [facility] CPT-4: 74782 02/25/2015 ([id number]) OFFICE/OUTPATIENT VISIT EST Diagnosis: ASTHMA NOS[ICD9: 493.90] Diagnosis: COPD[ICD9: 496] Diagnosis: DM W/O COMPLICATION TYPE II, UNCONTROLLED[ICD9: 250.02] Lita BARAKAT [facility] CPT-4: 19521 10/27/2014 OFFICE/OUTPATIENT VISIT EST Diagnosis: DYSPNEA[ICD9: 786.09] Diagnosis: COPD[ICD9: 496] Lita BARAKAT [facility] CPT- 4: 56491 10/06/2014 ([id number]) OFFICE/OUTPATIENT VISIT EST Diagnosis: PNEUMONIA, ORGANISM[ICD9: 486] Diagnosis: COPD[ICD9: 496] Diagnosis: DYSPNEA[ICD9: 786.09] Lita BARAKAT [facility] CPT-4: 89649 09/21/2014 OFFICE/OUTPATIENT VISIT EST Diagnosis: PNEUMONIA, ORGANISM[ICD9: 486] Diagnosis: DYSPNEA[ICD9: 786.09] Diagnosis: COUGH[ICD9: 786.2] Stephanie BARAKAT [facility] CPT-4: 42668 09/08/2014 OFFICE/OUTPATIENT VISIT EST Diagnosis: COPD with exacerbation[ICD9: 491.21] Diagnosis: COUGH[ICD9: 786.2] Diagnosis: DYSPNEA[ICD9: 786.09] Stephanie FUNEZER [facility] CPT-4: 65198 09/02/2014 ([id number]) OFFICE/OUTPATIENT VISIT EST Diagnosis: DM W/O COMPLICATION TYPE II, UNCONTROLLED[ICD9: 250.02] Lita BARAKAT [facility] CPT-4: 96207 08/27/2014 ([id number]) OFFICE/OUTPATIENT VISIT EST Diagnosis: DM W/O COMPLICATION TYPE II, UNCONTROLLED[ICD9: 250.02] Diagnosis: HYPERLIPIDEMIA NEC/NOS[ICD9: 272.4] Diagnosis: HYPERTENSION[ICD9: 401.9] Diagnosis: COPD[ICD9: 496] Diagnosis: FLU VACCINE[ICD10: Z23] Lita PABLO [facility] CPT-4: 29435 08/05/2014 ([id number]) OFFICE/OUTPATIENT VISIT EST Diagnosis: COPD[ICD9: 496] Diagnosis: Lumbar degenerative disc disease[ICD9: 722.52] Lita BARAKAT [facility] CPT-4: 89829 05/05/2014 OFFICE/OUTPATIENT VISIT EST Diagnosis: DYSPNEA[ICD9: 786.09] Diagnosis: COPD[ICD9: 496] Lita BARAKAT [facility] CPT- 4: 52067 03/24/2014 ([id number]) OFFICE/OUTPATIENT VISIT EST Diagnosis: COPD[ICD9: 496] Diagnosis: DYSPNEA[ICD9: 786.09] Lita ALYLINE Ashley BARAKAT [facility] CPT-4: 34828 03/10/2014 OFFICE/OUTPATIENT VISIT EST Diagnosis: Subacromial bursitis[ICD9: 726.19] Diagnosis: Chronic low back pain[ICD9: 724.2] Diagnosis: Lumbar degenerative disc disease[ICD9: 722.52] Lita BARAKAT [facility] CPT-4: 02840 12/16/2013 ([id number]) OFFICE/OUTPATIENT VISIT EST Diagnosis: PHARYNGITIS, ACUTE[ICD9: 462] Diagnosis: COPD[ICD9: 496] Litacarol ALYLINE Ashley BARAKAT [facility] CPT- 4: 45207 10/09/2013 OFFICE/OUTPATIENT VISIT EST Diagnosis: COPD[ICD9: 496] Diagnosis: Acute exacerbation of chronic obstructive pulmonary disease (COPD)[ICD9: 491.21] Ruchi Ramirez [facility] CPT-[facility]: 71747 09/18/2013 ([id number]) OFFICE/OUTPATIENT VISIT EST Diagnosis: PNEUMONIA, ORGANISM[ICD9: 486] Diagnosis: DM W/O COMPLICATION TYPE II[ICD9: 250.00] Lita [facility] CPT-[facility]: 01998 08/13/2013 ([id number]) OFFICE/OUTPATIENT VISIT EST Diagnosis: DM W/O COMPLICATION TYPE II, UNCONTROLLED[ICD9: 250.02] Diagnosis: HYPERLIPIDEMIA NEC/NOS[ICD9: 272.4] Diagnosis: HYPERTENSION[ICD9: 401.9] Diagnosis: DYSPNEA[ICD9: 786.09] Diagnosis: Family history of CABG[ICD9: V17.49] Lita Ramirez [facility] CPT-4: 36501 07/16/2013 ([id number]) OFFICE/OUTPATIENT VISIT EST Diagnosis: DM W/O COMPLICATION TYPE II, UNCONTROLLED[ICD9: 250.02] Diagnosis: HYPERLIPIDEMIA NEC/NOS[ICD9: 272.4] Diagnosis: HYPERTENSION[ICD9: 401.9] [facility] CPT-[facility]: 70584 06/25/2013 OFFICE/OUTPATIENT VISIT EST Diagnosis: COUGH[ICD9: 786.2] Diagnosis: COPD[ICD9: 496] [facility] C[facility]- [facility]: 72668 04/09/2013 ([id number]) OFFICE/OUTPATIENT VISIT EST Diagnosis: Muscle spasm[ICD9: 728.85] Diagnosis: ARTHRALGIA-MULTIPLE SITES[ICD9: 719.49] Lita [facility] CPT-[facility]: 14672 02/11/2013 OFFICE/OUTPATIENT VISIT EST Diagnosis: COPD with exacerbation[ICD9: 491.21] Diagnosis: BRONCHITIS, ACUTE[ICD9: 466.0] Ruchi [facility] CPT-4: 11900 01/31/2013 OFFICE/OUTPATIENT VISIT EST Diagnosis: COUGH[ICD9: 786.2] Diagnosis: PHARYNGITIS, ACUTE[ICD9: 462] Diagnosis: SINUSITIS, ACUTE[ICD9: 461.9] Lita BARAKAT [facility] CPT-4: 27851 01/20/2013 OFFICE/OUTPATIENT VISIT EST Diagnosis: DIZZINESS/VERTIGO[ICD9: 780.4] Lita BARAKAT [facility] CPT-4: 79789 12/19/2012 OFFICE/OUTPATIENT VISIT EST Diagnosis: Skin lesion of left arm[ICD9: 709.9] Diagnosis: Otitis externa[ICD9: 380.10] Diagnosis: PHARYNGITIS, ACUTE[ICD9: 462] Lita BARAKAT [facility] CPT-4: 74164 10/21/2012 ([id number]) OFFICE/OUTPATIENT VISIT EST Diagnosis: DM W/O COMPLICATION TYPE II, UNCONTROLLED[ICD9: 250.02] Diagnosis: HYPERLIPIDEMIA NEC/NOS[ICD9: 272.4] Diagnosis: HYPERTENSION[ICD9: 401.9] Lita AREVALO [facility] CPT-4: 98702 09/19/2012 ([id number]) OFFICE/OUTPATIENT VISIT EST Diagnosis: DM W/O COMPLICATION TYPE II, UNCONTROLLED[ICD9: 250.02] Diagnosis: HYPERLIPIDEMIA NEC/NOS[ICD9: 272.4] Diagnosis: COPD[ICD9: 496] Lita BARAKAT [facility] CPT- 4: 51727 09/18/2012 ([id number]) OFFICE/OUTPATIENT VISIT EST Diagnosis: BRONCHITIS, ACUTE[ICD9: 466.0] Diagnosis: SINUSITIS, ACUTE[ICD9: 461.9] Lita BARAKAT [facility] CPT-4: 65999 08/28/2012 ([id number]) OFFICE/OUTPATIENT VISIT EST Diagnosis: COPD[ICD9: 496] Diagnosis: DYSPNEA[ICD9: 786.09] Diagnosis: VAC STREP PNEUMONIAE-FLU (Medicare)[ICD9: V06.6] Lita BARAKAT [facility] CPT-4: 96800 07/10/2012 ([id number]) OFFICE/OUTPATIENT VISIT EST Diagnosis: DM W/O COMPLICATION TYPE II, UNCONTROLLED[ICD9: 250.02] Diagnosis: HYPERTENSION[ICD9: 401.9] Diagnosis: HYPERLIPIDEMIA NEC/NOS[ICD9: 272.4] Diagnosis: DIZZINESS/VERTIGO[ICD9: 780.4] Lita Jasminjosefbrii ALYLITA Donovan Ferdinand [facility] CPT-4: 13203 05/09/2012 ([id number]) OFFICE/OUTPATIENT VISIT EST Diagnosis: DM W/O COMPLICATION TYPE II, UNCONTROLLED[ICD9: 250.02] Diagnosis: HYPERLIPIDEMIA NEC/NOS[ICD9: 272.4] Diagnosis: HYPERTENSION[ICD9: 401.9] Diagnosis: MALAISE AND FATIGUE[ICD9: 780.79] Lita Segura DonovanFerdinand GASPER [facility] CPT-4: 88578 05/06/2012 OFFICE/OUTPATIENT VISIT EST Diagnosis: COUGH[ICD9: 786.2] Diagnosis: SINUSITIS, ACUTE[ICD9: 461.9] Diagnosis: PHARYNGITIS, ACUTE[ICD9: 462] Lita Jasminjosefbrii ALYLITA SFerdinand [facility] CPT-4: 81473 10/02/2011 OFFICE/OUTPATIENT VISIT EST Diagnosis: DM W/O COMPLICATION TYPE II, UNCONTROLLED[ICD9: 250.02] Diagnosis: HYPERLIPIDEMIA NEC/NOS[ICD9: 272.4] Diagnosis: HYPERTENSION[ICD9: 401.9] Diagnosis: COPD[ICD9: 496] Lita CRAWFORD SFerdinand [facility] CPT- 4: 74742 08/07/2011 OFFICE/OUTPATIENT VISIT EST Lita CRAWFORD DonovanFerdinand JASMIN NDER [facility] CPT- 4: 04312 04/03/2011 ([id number]) OFFICE/OUTPATIENT VISIT EST Lita TOBAR SUZANNE SFerdinand [facility] CPT-4: 53867 01/18/2011 ([id number]) OFFICE/OUTPATIENT VISIT EST Lita TOBAR MariaelenaMARC SFerdinand JASMINNDER DO [facility] CPT-4: 24441 12/19/2010 ([id number]) OFFICE/OUTPATIENT VISIT, EST Lita HOLMAN SFerdinand [facility] CPT-4: 06240 04/05/2010 ([id number]) OFFICE/OUTPATIENT VISIT, EST [facility] CPT-4: 82906 01/13/2010 ([id number]) OFFICE/OUTPATIENT VISIT, EST Lita HOLMAN SFerdinand [facility] CPT-4: 98054 12/23/2009 ([id number]) OFFICE/OUTPATIENT VISIT, EST Lita HOLMAN SFerdinand [facility] CPT-4: 77080 12/22/2009 ([id number]) OFFICE/OUTPATIENT VISIT, EST Lita Ramirez [facility] CPT-4: 55929 12/13/2009 Plan of Care Planned Activity Notes Codes Status Date Visit Diagnosis Plan: Chronic obstructive pulmonary di sease, unspecified Discussion: Add Daliresp 250mcg daily Fwup 4 weeks ICD-9 : 496 ICD-10 : J44.9 03/04/2020 Appointment: Lita Barakat [facility]el[id number] [facility] 03/04/2020 Visit Diagnosis Plan: [...] : J44.9 02/04/2020 Appointment: Lita Barakat WPtel: [address] [place], [place] [id number] [place] MEDICATION REVIEW 02/04/2020 Visit Diagnosis Plan: Chronic obstructiv e pulmonary disease with (acute) exacerbation Discussion: Solumedrol 125mg IM Continue SVNs every 4hrs Prednisone for 1 week COVID-19 precautions ICD-9 : 491.21 ICD-10 : J44.1 12/25/2019 Appointment: Lita [facility]akat WPtel[facility] [phone] [id number] [facility] 12/25/2019 Patient Education: prednisone- [employer] Coupon [id number] [email or web address]/Histros/resources/[email or web address] Completed 12/25/2019 Visit Diagnosis Plan: Noncompliance with [...] M25.561 12/22/2019 Appointment: Lita [facility]at [facility]Ptel[facility] [phone] [id number] [facility] 12/22/2019 Patient Education: baclofen- [employer] Coupon [id number] [email or web address]/Histros/resources/[email or web address] Completed 12/22/2019 Visit Diagnosis Plan: Chronic respiratory [...] : C44.310 11/12/2019 Appointment: Lita Barakat WPtel: [address] [place], [place] [id number] ACUTE ILLNESS 11/12/2019 Care Plan: Referral Order SNOMED-CT : 30 [id number] Pending 11/12/2019 Care Plan: Referral Order SNOMED-CT : 30 [id number] Pending 11/12/2019 Visit Diagnosis Plan: Right thyroid nodule Discussion: Check thyroid US ICD-9 : 241.0 ICD-10 : E04.1 09/11/2019 Visit Diagnosis Plan: Chronic obstructive pulmonary di sease, unspecified Discussion: Start Pulmonary Rehab Reviewed results of CT of chest ordered by pulmonology Follow Up: 3 months ICD-9 : 496 ICD-10 : J44.9 09/11/2019 Appointment: Lita Barakat WPtel: [address] [place] [address] MEDICATION REVIEW 09/11/2019 Care Plan: US EXAM OF HEAD AND NECK LOIN C : 06978-5 Pending 09/11/2019 Visit Diagnosis Plan: Chronic bronchitis Discussion: A ugmentin for 10 days ICD-9 : 491.9 ICD-10 : J42 08/07/2019 Appointment: Lita Barakat WPtel: [address] [place] [address] ACUTE ILLNESS 08/07/2019 Visit Diagnosis Plan: Chronic [...] him that overuse of symbicort can cause long term care pharmacist damage and the albuterol is to be used every 4 hours as needed. call office later this week with worsening or no improvement ICD-9 : 491.21 ICD-10 : J44.1 07/14/2019 Appointment: Autumn Oneil [address] [place], [place] [phone] US ACUTE ILLNESS 07/14/2019 Visit Diagnosis Plan: Dyspepsia [...] : F51.01 07/01/2019 Appointment: Lita Barakat WPtel: [address] [place], [place] [phone] US FOLLOW UP 07/01/2019 Care Plan: CT ABDOMEN W/O DYE LOINC : 36 103-0 Pending 07/01/2019 Care Plan: Referral Order SNOMED-CT : 30 [id number] Pending 07/01/2019 Visit Diagnosis Plan: Weight loss [...] : R10.13 06/24/2019 Appointment: Lita Barakat WPtel: [address] [place], [place] [phone] US ACUTE ILLNESS 06/24/2019 Patient Education: Seroquel- [email or web address] Coupon [id number] [email or web address] Technologies/samplemd/resources/getResource/61/[id number] Completed 06/24/2019 Patient Education: ondansetron HCl- [employer] Coupon [id number] https://www.Histros.com/samplemd/resources/getResource/61/9572871l-0057-90t8-f5 Completed 06/24/2019 Care Plan: US EXAM ABDOM COMPLETE LOINC : 20692-4 Pending 06/24/2019 Visit Diagnosis Plan: Chronic insomnia [...] : H53.2 06/17/2019 Appointment: Lita Barakat WPtel: [address] [place], [place] [phone] US FOLLOW UP 06/17/2019 Appointment: Lita Barakat WPtel: [address] [place], [place] [phone] US INJECTION 06/10/2019 Appointment: Lita Barakat WPtel: [address] [place], [place] [phone] US INJECTION 06/02/2019 Appointment: Lita Barakat WPtel: [address] [place], [place] [phone] US INJECTION 05/27/2019 Appointment: Lita Barakat WPtel: [address] [place], [place] [phone] US INJECTION 05/12/2019 Visit Diagnosis Plan: Anemia, [...] : E55.9 05/08/2019 Appointment: Lita Barakat WPtel: [address] [place] [address] FOLLOW UP 05/08/2019 Visit Diagnosis Plan: Pain in right knee Discussion: S top tramadol and tylenol q HS Trial of Hydrocodone 10/325mg po q HS Recheck 1month ICD-9 : 719.46 ICD-10 : M25.561 04/07/2019 Appointment: Lita Barakat WPtel: [address] [place] [address] Follow Up 04/07/2019 Visit Diagnosis Plan: Chronic [...] ICD-10 : F41.1 03/24/2019 Appointment: Autumn Oneil [address] [place] [address] ACUTE ILLNESS 03/24/2019 Patient Education: hydroxyzine HCl- [employer] Coupon [id number] Completed 03/24/2019 Patient Education: pantoprazole- [employer] Coupon [id number] Completed 03/24/2019 Visit Diagnosis Plan: Chronic obstructiv e pulmonary disease with (acute) exacerbation Discussion: 90 mg solumedrol given in of fice. patient's portable oxygen tank was empty. [id number] patient on importance of monitoring oxygen tank [...] : R42 03/21/2019 Appointment: Autumn Oneil [address] ACUTE ILLNESS 03/21/2019 Patient Education: ipratropium-albuterol- [employer] C oupon [id number] https://www.Histros.com/samplemd/resources/getResource/61/t7fz00p8-f3p2-2d8a-08 Completed 03/21/2019 Visit Diagnosis Plan: Chronic obstructiv e pulmonary disease with (acute) exacerbation Discussion: Solumedrol now Use SVNs with duoneb at least q4hrs Patient is supposed to be on continuous oxygen but not wearing ICD-9 : 491.21 ICD-10 : J44.1 03/13/2019 Visit Diagnosis Plan: Candidal stomatitis Discussion: Diflucan and Nystatin susp ICD-9 : 112.0 ICD-10 : B37.0 03/13/2019 Appointment: Lita Barakat WPtel: [address] ACUTE ILLNESS 03/13/2019 Patient Education: losartan- [employer] Coupon [id number] Completed 03/13/2019 Patient Education: nystatin- [employer] Coupon [id number] Completed 03/13/2019 Patient Education: fluconazole- [employer] Coupon [id number] Completed 03/13/2019 Visit Diagnosis Plan: Chronic obstructiv [...] G25.81 03/10/2019 Appointment: Lita Barakat [facility]Ptel: [facility] [facility] [facility] 03/10/2019 Visit Diagnosis Plan: Restless legs syndrome Discussio n: Stop requip Increase sinemet to TID Add children's chewable MV with iron BID Add magnesium oxide 400mg daily Add Lyrica 75mg po q HS Stop trazadone Recheck 3 weeks Follow Up: 3 weeks ICD-9 : 333.94 ICD-10 : G25.81 02/26/2019 Appointment: Lita Barakat WPtel: [address] [facility] [facility] 02/26/2019 Visit Diagnosis Plan: Primary insomnia Discussion: Tri al of doxepin 10-20mg po q HS prn sleep ICD-9 : 780.52 ICD-10 : F51.01 02/13/2019 Visit Diagnosis Plan: Chronic obstructive pulmonary di sease, unspecified Discussion: Stable Discussed trip to [place]--will get oxygen setup through [facility] ICD-9 : 496 ICD-10 : J44.9 02/13/2019 Appointment: Lita Barakat WPtel: [address] FOLLOW UP 02/13/2019 Patient Education: doxepin- [employer] Coupon [id number] https://www.Histros.[employer] Technologies/samplemd/resources/getResource/61/83p3p30r-99ks-301i-9h Completed 02/13/2019 Appointment: Lita Barakat WPtel: [address] [place] [address] US CANCELED 01/20/2019 Visit Diagnosis Plan: Chronic obstructive pulmonary di sease, unspecified Discussion: Stable on oxygen Given Symbicort samples Follow Up: 1 months ICD-9 : 496 ICD-10 : J44.9 01/14/2019 Appointment: Lita Barakat WPtel: [address] [place] [address] Hospital Follow Up 01/14/2019 Visit Diagnosis Plan: [...] : J96.11 12/25/2018 Appointment: Lita Barakat WPtel: [address] [place] [address] Hospital Follow Up 12/25/2018 Appointment: Lita Barakat WPtel: [address] [place] [address] US CANCELED 12/23/2018 Appointment: Ines Banerjee [facility] [address] CANCELED 12/20/2018 Visit Diagnosis Plan: Acute [...] : I10 12/09/2018 Appointment: Ines Banerjee [address] [place] [address] LAB 12/09/2018 Patient Education: cefdinir- [employer] Coupon [id number] https://www.FairShare/Histros/resources/getResource/61/s1464v3f-14gu-1122-50 Completed 12/09/2018 Visit Diagnosis Plan: Candidal stomatitis Discussion: Diflucan for 5 days Hold atorvastatin while taking ICD-9 : 112.0 ICD-10 : B37.0 12/05/2018 Appointment: Lita Barakat WPtel: [address] [place] [address] ACUTE ILLNESS 12/05/2018 Patient Education: fluconazole- Opt[employer] Coupon [id number] https://www.FairShare/sampleCollaborate Cloud/resources/getResource/61/5b340j45-3in5-48a9-87 Completed 12/05/2018 Appointment: Lita Barakat WPtel: [address] [place] [address] NO SHOW 11/11/2018 Visit Plan: Saline nasal [...] ICD-10 : J01.91 10/23/2018 Appointment: Lita Barakattel: [address] [place] [address] ACUTE ILLNESS 10/23/2018 Patient Education: prednisone- [employer] Coupon [id number] https://www.FairShare/Histros/resources/getResource/61/vl3fi778-bxye-8541-32 Completed 10/23/2018 Care Plan: A1C HPLC LOINC : 19298-6 Pending 09/10/2018 Care Plan: COMPREH[place] : [address]-9 Pending 09/10/2018 Care Plan: CBC Pending 09/10/2018 [...] 333.94 ICD-10 : G25.81 08/21/2018 Appointment: Lita Barakattel: [address] [place] [address] ACUTE ILLNESS 08/21/2018 Care Plan: Referral Order SNOMED-CT : 30 1949822 Pending 08/21/2018 Visit Diagnosis Plan: Chronic obstructiv [...] 333.94 ICD-10 : G25.81 08/07/2018 Appointment: Lita Barakattel: [address] [place] [address] FOLLOW UP 08/07/2018 Appointment: Lita Barakattel: [address] [facility] 07/18/18 1210---see note in chart (km) CANCELED 07/18/2018 Visit Diagnosis Plan: Chronic obstructiv e pulmonary disease with acute lower respiratory infection Discussion: Solumedrol 125mg IM Change t o trelagy 1 inhalation daily Use SVNs with albuterol q4hrs To ER this weekend if worsens Monitor weight/swelling ICD-9 : 496 ICD-10 : J44.0 05/23/2018 Appointment: Lita Barakat WPtel: 2305 [facility] ACUTE ILLNESS 05/23/2018 Patient Education: Patient Medication Summary Completed 05/23/2018 Visit Diagnosis Plan: Candidal stomatitis Discussion: Diflucan for 7 more days--hold atrovastatin while taking ICD-9 : 112.0 ICD-10 : B37.0 05/02/2018 Appointment: Lita Braakat WPtel: 2305 [facility] FOLLOW UP 05/02/2018 Patient Education: [...] infection Discussion: 90 mg solumedrol given to pa kallie. informed patient that the reason his symptoms [...] : J44.0 04/29/2018 Appointment: Autumn Oneil [address] [place] [address] ACUTE ILLNESS 04/29/2018 Patient Education: Patient Medication [...] : J44.0 04/22/2018 Appointment: Lita Barakat WPtel: [address] [place], [place] [phone] Hospital Follow Up 04/22/2018 Patient Education: Patient Medication Summary Completed 04/22/2018 Appointment: Lita Barakat WPtel: [facility] 04/09/18 1640---see message in chart from today [...] : M17.11 01/28/2018 Appointment: Lita Barakat WPtel: [address] [place] [address] ACUTE ILLNESS 01/28/2018 Patient Education: Patient Medication Summary Completed 01/28/2018 Care Plan: Referral Order SNOMED-CT : 30 9217019 Pending 01/28/2018 Care Plan: Referral Order SNOMED-CT : 30 0558374 Pending 01/28/2018 Visit Diagnosis Plan: Functional dyspepsia Discussion: Protonix Call in 1 week on how doing ICD-9 : 536.8 ICD-10 : K30 01/23/2018 Visit Diagnosis Plan: Pain in right knee Discussion: T opical voltaren gel QID ICD-9 : 719.46 ICD-10 : M25.561 01/23/2018 Appointment: Lita Barakat WPtel: [address] [place] [address] ACUTE ILLNESS 01/23/2018 Patient Education: Patient Medication [...] : N39.0 01/02/2018 Appointment: Lita Barakat WPtel: [address] [place] [address] ACUTE ILLNESS 01/02/2018 Patient Education: Patient Medication [...] ICD-10 : J44.1 12/28/2017 Appointment: Autumn Oneil [address] [place] [address] Consult 12/28/2017 Patient Education: Patient Medication Summary [...] ICD-10 : J20.9 12/21/2017 Appointment: Autumn Oneil [address] [place], [place] [phone] ACUTE ILLNESS 12/21/2017 Patient Education: Patient Medication Summary Completed 12/21/2017 Care Plan: X-RAY EXAM OF KNEE 1 OR 2 [place] : [address]-9 Pending 12/18/2017 Visit Diagnosis Plan: Pain in [...] ICD-10 : J44.0 12/17/2017 Appointment: Autumn Oneil [address] [place] [address] ACUTE ILLNESS 12/17/2017 Patient Education: Patient Medication Summary Completed 12/17/2017 Visit Diagnosis Plan: Unilateral primary osteoarthriti s, right knee Discussion: Right knee injection as above Warned of elevated BS after injection ICD-9 : 715.96 ICD-10 : M17.11 12/11/2017 Appointment: Lita Barakat WPtel: [address] [place] [address] OFFICE SURGERY 12/11/2017 Patient Education: Patient Medication Summary Completed 12/11/2017 Visit Diagnosis Plan: Actinic keratosis Discussion: Cr yotherapy as above If persists then will need excision by Dr. Swanson ICD-9 : 702.0 ICD-10 : L57.0 11/07/2017 Appointment: Lita Barakat WPtel: [address] [place] [address] ACUTE ILLNESS 11/07/2017 Patient Education: Patient Medication [...] S61.411S 10/17/2017 Appointment: Lita Barakat WPtel: [address] [place] [address] ER Follow UP 10/17/2017 Patient Education: Patient Medication Summary Completed 10/17/2017 Appointment: Lita Barakat WPtel: [address] [facility] [facility] Consult 08/15/2017 Visit Diagnosis Plan: Chronic [...] : J44.0 08/02/2017 Appointment: Autumn Oneil [address] [place] [address] ACUTE ILLNESS 08/02/2017 Patient Education: Patient Medication Summary Completed 08/02/2017 Patient Education: Patient Medication Summary Completed 07/31/2017 Care Plan: CHEST X-RAY 2VW FRONTAL&LATL LOINC : 62198-8 Pending 07/31/2017 Appointment: Lita Barakat WPtel: [address] [facility] INJECTION 07/24/2017 Patient Education: Patient Medication Summary [...] : J44.1 07/02/2017 Appointment: Autumn Oneil [address] ACUTE ILLNESS 07/02/2017 Patient Education: Patient Medication Summary Completed 07/02/2017 Care Plan: CHEST X-RAY 2VW FRONTAL&LATL LOINC : 92761-9 Pending 07/02/2017 Care Plan: MRI LUMBAR SPINE W/O DYE KOURTNEY C : 09862-5 Pending 05/30/2017 Visit Plan: MRI at [facility] codone 5.325 1 po q 4-6 hours prn pain #40 NR and Cyclobenzaprine (ERx) Continue warm packs for pain RTC if no improvement 05/29/2017 Appointment: Ruchi Buchanan WPtel: [address] [place] [address] ACUTE ILLNESS 05/29/2017 Patient Education: Patient Medication Summary Completed 05/29/2017 Appointment: Lita Barakat WPtel: [address] [place], [place] [phone] US CANCELED 05/24/2017 Patient Education: Patient Medication Summary Completed 05/22/2017 Care Plan: X-RAY EXAM L-S SPINE 2/3 VWS LOINC : 09576-1 Pending 05/22/2017 Appointment: Lita Barakat WPtel: [address] [place] [address] LAB 04/17/2017 Patient Education: Patient Medication Summary Completed 04/17/2017 Referral: Demetrius Benjamin WPtel: [address] [place] [address] Referral Initiated 04/05/2017 Appointment: Lita Barakat WPtel: [address] [place] [address] 03/30/17 0930---spoke with patient about ointments (km Consult 03/30/2017 Appointment: Lita Barakat WPtel: [address] [place] [address] 03/29/17 1320---spoke with patient, requip refilled wasn't received at pharmacy so verbally called (km) Consult 03/29/2017 Patient Education: Patient Medication Summary Completed 03/01/2017 Care Plan: CHEST X-RAY 2VW FRONTAL&LATL LOINC : 87522-2 Pending 03/01/2017 Visit Diagnosis Plan: Bursitis of left shoulder Discus yesi: Injection as above ICD-9 : 726.10 ICD-10 : M75.52 02/01/2017 Appointment: Lita Barakat WPtel: [address] [place] [address] 01/31 confirmed ~sl WORK IN 02/01/2017 Patient Education: Patient Medication Summary Completed 02/01/2017 Care Plan: X-RAY EXAM OF SHOULDER LOINC : 14158-7 Pending 01/30/2017 Visit Plan: May take OTC Tylenol/Ibuprof en as directed XRay at of left shoulder Tramadol 50mg 1 po q 6 hours prn pain called to [facility]. Sedation warning given (no driving, etc) RTC if no improvement 01/29/2017 Appointment: Ruchi Buchanan WPtel: [address] [place] [address] ACUTE ILLNESS 01/29/2017 Appointment: Ruchi Buchanan WPtel: [address] [place] [address] ACUTE ILLNESS 01/29/2017 Patient Education: Patient Medication Summary Completed 01/29/2017 Appointment: Lita Barakat WPtel: [address] [place] [address] [place] Consult 01/10/2017 Appointment: Lita Barakat WPtel: [address] [place], [place] [address] 12/27/2016 Patient Education: Patient Medication Summary Completed [...] : R53.83 12/21/2016 Appointment: Lita Barakat WPtel: [address] [place] [address] ACUTE ILLNESS 12/21/2016 Patient Education: Patient Medication Summary Completed 12/21/2016 Appointment: Lita Barakat WPtel: [address] [place], [place] [address] [place] CANCELED 12/18/2016 Visit Diagnosis Plan: Restless [...] : D64.9 12/14/2016 Appointment: Lita Barakat WPtel: [address] [place], [place] [address] US 12/13 confirmed ~sl WORK IN 12/14/2016 Appointment: Lita Barakat WPtel: [address] [place] [address] [place] CANCELED 12/14/2016 Patient Education: Patient Medication Summary Completed 12/14/2016 Appointment: Lita Barakat WPtel: [address] [place] [address] [place] LAB 12/12/2016 Patient Education: Patient Medication Summary Completed 12/12/2016 Appointment: Lita Barakat WPtel: [address] [place] [address] [place] in ER this weekend--called for reports Consult 12/11/2016 Appointment: Lita Barakat WPtel: [address] [place] [address] [place] CANCELED 12/04/2016 Visit Diagnosis Plan: Pneumonia, [...] ICD-10 : G25.81 11/14/2016 Appointment: Magda Toth [address] [place] [address] MEDICATION REVIEW 11/14/2016 Patient Education: Patient Medication Summary Completed 11/14/2016 Appointment: Lita Barakat WPtel: [address] [place] [address] US RESCHEDULED 11/02/2016 Visit Diagnosis Plan: Candidal stomatitis Discussion: Diflucan and Nystatin Hold atorvastatin while taking diflucan ICD-9 : 112.0 ICD-10 : B37.0 10/31/2016 Appointment: Lita Barakat WPtel: [address] [place] [address] ACUTE ILLNESS 10/31/2016 Patient Education: Patient Medication Summary Completed 10/31/2016 Appointment: Lita Barakat WPtel: [address] [place] [address] US Consult 10/23/2016 Appointment: Lita Barakattel: [address] [place], [place] [address] US CANCELED 10/18/2016 Visit Plan: Rx as above Wear O2 at all t imes as instructed by Dr Chacon Continue breathing treatments Supportive care otherwise reviewed Follow up ingrid if not improving 10/03/2016 Appointment: Lita Barakat WPtel: [address] [place], [place] [phone] CANCELED 10/03/2016 Appointment: Magda Toth [address] [place] [address] ACUTE ILLNESS 10/03/2016 Patient Education: Patient Medication Summary Completed 10/03/2016 Visit Plan: Titrate requip to 1.5mg x 1 week Call if not helpful and will increase to 2mg qHS NO MORE nyquil at bedtime - discussed potential effects of decongestants on heart, oversedating himself, etc Will increase requip, then amitriptyline if needed to desired effect 09/04/2016 Appointment: Magda Toth [address] [place] [address] ACUTE ILLNESS 09/04/2016 Patient Education: Patient Medication Summary Completed 09/04/2016 Visit Plan: Stop requip and try elavil C ryotherapy as above See ENT for removal of right ear lesion 08/22/2016 Appointment: Lita Barakat WPtel: [address] [place], [place] [address] 08/22/2016 Patient Education: Patient Medication Summary Completed 08/22/2016 Visit Plan: Trial of requip 1mg q HS Res tart zoloft Recheck 1month 08/10/2016 Appointment: Lita Barakat WPtel: [address] [place] [address] ACUTE ILLNESS 08/10/2016 Patient Education: Patient Medication Summary Completed 08/10/2016 Visit Plan: Stop HCTZ Flagyl for diarrhe a Hydrate Discussed meds for restless legs Zofran prn Nausea 07/06/2016 Appointment: Lita Barakat WPtel: [address] [place] [address] 07/05 confirmed~ Hospital Follow Up 07/06/2016 Patient Education: Patient Medication Summary Completed 07/06/2016 Visit Plan: Reviewed with Dr Gasper mantillaing his recent history, instructed him to go straight to the ER called to notify her so she can meet him there 06/22/2016 Appointment: [facility] [facility] 06/22/2016 Patient Education: Patient Medication Summary Completed 06/22/2016 Visit Plan: Continue current meds Prevna r 13 and High Dose Flu given 06/13/2016 Appointment: Lita Barakat WPtel: [address] [place], [place] [phone] 06/13 confirmed~sl WORK IN 06/13/2016 Patient Education: Patient Medication Summary Completed 06/13/2016 Appointment: Lita Barakat WPtel: [address] [place], [place] [phone] just went over current medications CANCELED 06/08/2016 Visit Plan: Reviewed POC with Dr Barakat Stat cbc, cmp, d dimer, troponin, bnp, ekg, cxr If any worsening of symptoms while awaiting results, patient instructed to go to ER or call 911 06/01/2016 Appointment: Magda Toth [address] [place], [place] [address] 06/01/2016 Patient Education: Patient Medication Summary Completed 06/01/2016 Referral: José Miguel Swanson WPtel: [address] [place] [address] 04/[address] swanson's office, patient is [...] eval and treatment 04/26/2016 Appointment: Magda Toth [address] [place], [place] [address] ACUTE ILLNESS 04/26/2016 Patient Education: Patient Medication Summary Completed 04/26/2016 Care Plan: Referral Order SNOMED-CT : 30 9124890 Pending 04/26/2016 Visit Plan: Left ear flushed after conse nt with warm water with peroxide with ear syringe Patient tolerated well Ear exam is wnl following flushing Follow up PRN 04/05/2016 Appointment: Magda Toth [address] [place], [place] [address] ACUTE ILLNESS 04/05/2016 Patient Education: Patient Medication Summary Completed 04/05/2016 Visit Plan: Increase Levemir to 25u sc d aily Increase sertraline to 2 full tablets daily--200mg Debrox or cerumenex to bilateral ears q HS for 3 nights then flush or fwup for fushing Check lab in 2mos then fwup 04/03/2016 Appointment: Lita Barakat WPtel: [address] [place], [place] [phone] 03/31 03/31 lm ~sl FOLLOW UP 04/03/2016 Patient Education: Patient Medication Summary Completed 04/03/2016 Visit Plan: Patient informed of correct dosage of levemir and how to administer. Patient verbalizes understanding and will call if any questions/concerns. 10 Units of Levemir given in office SC to right lower abdom en. Patient tolerated well. Site without redness/irritation. 03/13/2016 Appointment: Lita Barakat WPtel: [address] [place], [place] [phone] SPECIAL 03/13/2016 Patient Education: Patient Medication Summary Completed 03/13/2016 Appointment: Lita Barakat WPtel: [address] [place], [place] [phone] LAB 03/06/2016 Patient Education: Patient Medication Summary Completed 03/06/2016 Visit Plan: Patient saw Dr. Chacon this week and was given prednisone taper for COPD Continue current meds Accuchecks daily Patient will return on Sunday morning for fasting lab incuding CBC, CMP, TSH, free T4, HbA1C, Lipids, Testosterone, PSA 03/02/2016 Appointment: Lita Barakat WPtel: [address] [place], [place] [phone] 03/01 confirmed ~sl FOLLOW UP 03/02/2016 Patient [...] how doing 02/17/2016 Appointment: Lita Barakat WPtel: [address] [place], [place] [phone] WORK IN 02/17/2016 Patient Education: Patient Medication Summary Completed 02/17/2016 Visit Plan: Xrays to further evaluate Alvarez spect heel spur(s) Will call with results Has had injections in the past that were helpful Dr Barakat can do them or can refer to podiatry if warranted 02/14/2016 Appointment: Magda Toth [address] [place], [place] [address] ACUTE ILLNESS 02/14/2016 Patient Education: Patient Medication Summary Completed 02/14/2016 Visit Plan: Increase Zoloft to 150mg cooper ly 01/31/2016 Appointment: Lita Barakat WPtel: [address] [place], [place] [phone] 01/26 confirmed `sl FOLLOW UP 01/31/2016 Patient Education: Patient Medication Summary Completed 01/31/2016 Visit Plan: Decrease citalopram to 20mg q AM for 1 week then stop Start zoloft 50mg q HS for 1 week then increase to 100mg q HS 12/30/2015 Appointment: Lita Barakat WPtel: [address] [place], [place] [phone] 12/28 confirmed~sl ACUTE ILLNESS 12/30/2015 Patient Education: Patient Medication Summary Completed 12/30/2015 Visit Plan: Check Neck US 12/16/2015 Appointment: Lita Barakat WPtel: [address] [place], [place] [phone] US 12/14 lm ~sl 12/15 confirmed-sp FOLLOW UP 12/16/2015 Patient Education: Patient Medication Summary Completed 12/16/2015 Care Plan: US EXAM OF HEAD AND NECK LOIN C : 92869-9 Ordered 12/16/2015 Appointment: Stephanie Rios WPtel: [address] [place], [place] [phone] 12/09 confirmed-sp 12/12 lm ~sl Patient r mannie call and stated he just plain forgot ~sl FOLLOW UP 12/13/2015 Visit Plan: Had changing lesions of fore head and left mastoid area removed earlier today. Follow-up in one week Will proceed with soft tissue ultrasound of neck/ left cervical lymph node if no improvement antibiotics Clindamycin 300mg PO TID 12/06/2015 Appointment: Stephanie Rios WPtel: [address] [place], [place] [phone] ACUTE ILLNESS 12/06/2015 Patient Education: Patient Medication Summary Completed 12/06/2015 Referral: Lisbeth Darby WPtel: [facility] [address] [facility] 11/18/15 called luther at [facility] office and confirmed time and date of appointment with patient~sl Initiated 11/18/2015 Visit Plan: Referral to Dermatology for removal of facial skin lesions Cefdinir PO bid Topical Mupirocin to skin lesions bid 11/15/2015 Appointment: Stephanie Rios WPtel: [address] [place], [place] [address] 11/15/2015 Patient Education: Patient Medication Summary Completed 11/15/2015 Visit Plan: Continue current meds Accuch ecks daily Fwup with ophthamology as scheduled Will check lab in 3mos then fwup due to recent meds that will affect blood sugar 10/05/2015 Appointment: Lita Barakat WPtel: [address] [place], [place] [phone] 10/04/15 appt confirmed cn Annual Well Visit 08/2016 Patient Education: Patient Medication Summary Completed 10/05/2015 Visit Plan: Alexis -1 sample box given Return visit in 6 weeks for fasting labs Notify for worsening symptoms such as Increased redness, swelling, pain or drainage of Rt. knee 07/22/2015 Appointment: Stephanie Rios WPtel: [address] [place], [place] [phone] 07/21 vm left cn FOLLOW UP 07/22/2015 Patient Education: Patient Medication Summary Completed 07/22/2015 Visit Plan: Continue to change dressing twice daily and apply Mupirocin Complete Doxycycline as directed. Follow-up for worsening symptoms, such as increased swelling, redness or pain. 07/01/2015 Appointment: Stephanie Rios WPtel: [address] [place], [place] [phone] FOLLOW UP 07/01/2015 Patient Education: Patient Medication Summary Completed 07/01/2015 Visit Plan: Pressure dressing applied to draining wound left knee. Instructed to change dressing twice daily and continue Mupirocin topical Doxycycline PO bid x 10 days Wound culture obtained. Wound tissue sent to pathology Follow-up in 3 days 06/28/2015 Appointment: Stephanie Rios WPtel: [address] [place], [place] [phone] ACUTE ILLNESS 06/28/2015 Patient Education: Patient Medication Summary Completed 06/28/2015 Visit Plan: Complete antibiotics Follow- up for increased tenderness, swelling or drainage. 06/09/2015 Appointment: Stephanie Rios WPtel: [address] [place], [place] [phone] 06/08/15 FOLLOW UP 06/09/2015 Patient Education: Patient Medication Summary Completed 06/09/2015 Visit Plan: Apply pressure dressing toda y Continue antibiotics and topical Mupirocin Follow-up in 2 days Bursa drained from open area using pressure--serosanguinous drainage 06/07/2015 Appointment: Stephanie Rios WPtel: [address] [place], [place] [phone] 06/04/15 confirmed with patient FOLLOW UP 0 06/07/2015 Patient Education: Patient Medication Summary Completed 06/07/2015 Visit Plan: Wound culture Lt. knee Apply mupirocin to open wound bid Clindamycin 600 mg PO bid x 10 days Follow-up on Sunday06/03/2015 Appointment: Stephanie Rios WPtel: [address] [place], [place] [phone] ACUTE ILLNESS 06/03/2015 Patient Education: Patient Medication Summary Completed 06/03/2015 Visit Plan: Accuchecks daily Check CMP, HbA1C today Patient is noncompliant with meds and diet but patient says he is doing everything he is supposed to do Wants to try performomist instead of albuterol in SVN 06/01/2015 Appointment: Lita Barakat WPtel: [address] [place], [place] [phone] 05/28 appt confirmed cn FOLLOW UP 06/01/20 15 Patient Education: Patient Medication Summary Completed 06/01/2015 Visit Plan: Change Breo Ellipta to Advai r 500/50 1 p BID this next month Continue turdoza Use albuterol prn Check CMP, HbA1C today Accuchecks daily Cryotherapy as above 02/25/2015 Appointment: Lita Barakat WPtel: [address] [place] [address] 02/24 appt confirmed and explained needed payment he said ok FOLLOW UP 02/25/2015 Patient Education: Patient Medication Summary Completed 02/25/2015 Referral: Lopez Chacon [facility] C&D [id number] [place] Will put patient on cancellation list Initiated 12/08/2014 Appointment: Lita Barakat WPtel: [address] [place], [place] [phone] [place] [address] Follow Up 10/29/2014 Visit Plan: Finish prednisone Continue S VNs with albuterol QID See pulmonology and start Pulmonary rehab Once again discussed taking it easy this winter--that he is high risk for exacerbation 10/27/2014 Appointment: Lita Barakat WPtel: [address] [place], [place] [phone] FOLLOW UP 10/27/2014 Patient Education: Patient Medication Summary Completed 10/27/2014 Appointment: Lita Barakat WPtel: [address] [place], [place] [phone] FOLLOW UP 10/26/2014 Appointment: Stephanie Rios WPtel: [address] [place], [place] [phone] WORK IN 10/21/2014 Patient Education: Patient Medication Summary Completed 10/21/2014 Patient Education: Patient Medication Summary Completed 10/19/2014 Visit Plan: Continue oxygen and SVNS wit h duoneb Increase farxiga to 10mg daily Diflucan 100mg daily for 1week 10/06/2014 Appointment: Lita Barakat WPtel: [address] [place], [place] [phone] Moved appt time to 2:45pm FOLLOW UP 2014 Patient Education: Patient Medication Summary Completed 10/06/2014 Visit Plan: Finish omnicef Continue Breo BID and Turdoza Use SVNS with duoneb at least TID for next 2weeks then go to prn 09/21/2014 Appointment: Lita Barakat WPtel: [address] [place], [place] [phone] [facility] Follow Up 09/21/2014 Patient Education: Patient Medication Summary Completed 09/21/2014 Patient Education: [facility] [place] - Saving [employer] - Ventolin HFA - 18+ - Dynamic Portal ID Completed 09/21/2014 Appointment: Stephanie Rios WPtel: [address] [place], [place] [phone] Scheduled by 09/07 patient rescheduled to 09/08 with Stephanie. Hospital Follow Up 09/08/2014 Patient Education: Patient Medication Summary Completed 09/08/2014 Appointment: Stephanie Rios WPtel: [address] [place], [place] [phone] FOLLOW UP 09/02/2014 Patient Education: Patient Medication Summary Completed 09/02/2014 Patient Education: [employer] - Antibi otics, Analgesics 18+, Oral Contraceptives F 18+ Completed 09/02/2014 Appointment: Lita Barakat WPtel: [address] [place], [place] [phone] RUST 08/27/2014 Patient Education: Patient Medication Summary Completed [...] prn sleep 08/10/2014 Appointment: Lita Barakat WPtel: [address] [place], [place] [phone] Annual Well Visit 08/10/2014 Patient Education: Patient Medication Summary Completed 08/10/2014 Appointment: Lita Barakat WPtel: [address] [place], [place] [phone] [place] LAB 08/05/2014 Patient Education: Patient Medication Summary Completed 08/05/2014 Visit Plan: ECHO results reviewed Contin ue Breo and Turdoza Pt starts PT this afternoon for back--has had one epidural with no help in pain 05/05/2014 Appointment: Lita Barakat WPtel: [address] [place], [place] [phone] FOLLOW UP 05/05/2014 Patient Education: Patient Medication Summary Completed 05/05/2014 Visit Plan: Continue Breo and Turdoza Camargo s heart tests scheduled next week Will see surgeon for removal of skin cancer to neck after done with cardiac workup 03/24/2014 Appointment: Lita Barakat WPtel: [address] [place], [place] [phone] [place] FOLLOW UP 03/24/2014 Patient Education: Patient Medication Summary Completed 03/24/2014 Visit Plan: Proceed with cardiology eval uation as patient is has numerous risk factors for CAD Change Symbicort to Breo 1p BID and add Turdorza 1p BID Recheck in weeks Check 2-D ECHO and lexiscan 03/10/2014 Appointment: Lita Barakat WPtel: [address] [place], [place] [phone] [place] FOLLOW UP 03/10/2014 Patient Education: Patient Medication Summary Completed 03/10/2014 Visit Plan: Shoulder injection as above Back brace to use when doing any lifting for stability 12/16/2013 Appointment: Lita Barakat WPtel: [address] [place], [place] [phone] ACUTE ILLNESS 12/16/2013 Patient Education: Patient Medication Summary Completed 12/16/2013 Visit Plan: Continue symbicort and Turdo za Salt water gargles Omnicef 300mg 2 po daily for 1wk Phenergan with codeine 10/09/2013 Appointment: Lita Barakat WPtel: [address] [place], [place] [phone] WORK IN 10/09/2013 Patient Education: Patient Medication Summary Completed 10/09/2013 Appointment: Ruchi Buchanan WPtel: [address] [place] [address] ACUTE ILLNESS 09/18/2013 Patient Education: Patient Medication Summary Completed 09/18/2013 Visit Plan: Check on repeat CXR Finish a bx Start Tradjenta to replace metformin 08/13/2013 Appointment: Lita Barakat WPtel: [address] [place], [place] [phone] 08/12 Hospital Follow Up 08/13/2013 Patient Education: Patient Medication Summary Completed 08/13/2013 Visit Plan: Admit to hospital 08/06/2013 Appointment: Stephanie Rios WPtel: [address] [place] [phone] 08/06/2013 Patient Education: Patient Medication Summary Completed 08/06/2013 Visit Plan: Continue current meds Contin ue accuchecks daily Proceed with stress test due to high risk for CAD 07/16/2013 Appointment: Lita Barakat WPtel: [address] [place], [place] [phone] FOLLOW UP 07/16/2013 Patient Education: Patient Medication Summary Completed 07/16/2013 Appointment: Lita Barakat WPtel: [address] [place], [place] [phone] [place] LAB 06/25/2013 Patient Education: Patient Medication Summary Completed 06/25/2013 Visit Plan: prednisone and azithromycin. Doing CBC and mycoplasma blood draw. Will continue inhaler and albuterol breathing treatments. 04/09/2013 Appointment: Kimberly Villalba WPtel: [address] [place] [address] ACUTE ILLNESS 04/09/2013 Patient Education: Patient Medication Summary Completed 04/09/2013 Appointment: Lita Barakat WPtel: [address] [place] [address] ACUTE ILLNESS 02/11/2013 Patient Education: Patient Medication Summary Completed 02/11/2013 Appointment: Ruchi Buchanan WPtel: [address] [place] [address] ACUTE ILLNESS 01/31/2013 Patient Education: Patient Medication Summary Completed 01/31/2013 Visit Plan: Cefdinir and medrol dose pac k. Codeine/guiaf cough syrup. Has colonoscopy on Sunday. Pt. is to notify if fever occurs or symptoms worsen. Hydration and rest. 01/20/2013 Appointment: Kimberly Villalba WPtel: [address] [place] [address] ACUTE ILLNESS 01/20/2013 Patient Education: Patient Medication Summary Completed 01/20/2013 Visit Plan: Scopalamine patch and vestib ular exercises 12/19/2012 Appointment: Lita Barakat WPtel: [address] [place] [address] ACUTE ILLNESS 12/19/2012 Patient Education: Patient Medication Summary Completed 12/19/2012 Visit Plan: Dr. Swanson consult if no impr ovement in hearing. Pt. reports he will notify if no better in one week. Willam consult for skin lesion. 10/21/2012 Appointment: Kimberly Villalba WPtel: [address] [place], [place] [phone] 10/21/2012 Patient Education: Patient Medication Summary Completed 10/21/2012 Appointment: Lita Barakat WPtel: [address] [place], [place] [phone] [place] LAB 09/19/2012 Patient Education: Patient Medication Summary Completed 09/19/2012 Visit Plan: Check fasting lab in AM--CMP , Lipids, HbA1C 09/18/2012 Appointment: Lita Barakattel: [address] [place], [place] [phone] [place] FOLLOW UP 09/18/2012 Patient Education: Patient Medication Summary Completed 09/18/2012 Appointment: Lita Barakat WPtel: [address] [place], [place] [phone] [place] appt time scheduled sooner FOLLOW UP 09/05 Visit Plan: Doxycycline and Prednisone I ncrease SVN to QID Add back Symbicort 160/4.5 2 p BID 08/28/2012 Appointment: Lita Barakattel: [address] [place], [place] [phone] [place] FOLLOW UP 08/28/2012 Patient Education: Patient Medication Summary Completed 08/28/2012 Appointment: Lita Barakattel: [address] [place], [place] [phone] Annual Well Visit 07/10/2012 Patient Education: Patient Medication Summary Completed 07/10/2012 Visit Plan: Finish Z-pack Add Nasonex Ad d Meclizine Vestibular exercises Continue current meds and accuchecks Check lab and fwup in 4mos 05/09/2012 Appointment: Lita Barakattel: [address] [place], [place] [phone] [place] number no longer works FOLLOW UP 2 Patient Education: Patient Medication Summary Completed 05/09/2012 Appointment: Lita Barakattel: [address] [place], [place] [phone] [place] LAB 05/06/2012 Patient Education: Patient Medication Summary Completed 05/06/2012 Appointment: Lita Barakattel: [address] [place], [place] [phone] [place] LAB 05/02/2012 Appointment: Lita Barakat WPtel: [address] [place], [place] [phone] [place] INJECTION 02/05/2012 Patient Education: Patient Medication Summary Completed 02/05/2012 Visit Plan: cefdinir. Will focus on rest and fluids. Pt. reports he is using breathing treatments as needed. Pt. will monitor for worsening symptoms or fever. 10/02/2011 Appointment: Kimberly Villalba WPtel: [address] [place], [place] [phone] 10/02/2011 Patient Education: Patient Medication Summary Completed 10/02/2011 Appointment: Lita Barakat WPtel: [address] [place], [place] [phone] [place] INJECTION 08/10/2011 Patient Education: Patient Medication Summary Completed 08/10/2011 Visit Plan: Continue current meds Restar t Advair Restart exercise Flu shot given 08/07/2011 Appointment: Lita Barakat WPtel: [address] [place], [place] [phone] FOLLOW UP 08/07/2011 Patient Education: Patient Medication Summary Completed 08/07/2011 Appointment: Lita Barakat WPtel: [address] [place], [place] [phone] [place] LAB 07/26/2011 Patient Education: Patient Medication Summary Completed 07/26/2011 Visit Plan: ALEKSANDER Carmen Continue Metformin but change to BID Add Lantus 25u sc q PM BS readings in 1wk 04/03/2011 Appointment: Lita Barakat WPtel: [address] [place], [place] [phone] ACUTE ILLNESS 04/03/2011 Patient Education: Patient Medication Summary Completed 04/03/2011 Appointment: Lita Barakat WPtel: [address] [place], [place] [phone] [place] INJECTION 01/19/2011 Patient Education: Patient Medication Summary Completed 01/19/2011 Appointment: Lita Barakat WPtel: [address] [place] [address] ACUTE ILLNESS 01/18/2011 Patient Education: Patient Medication Summary Completed 01/18/2011 Appointment: Lita Barakat WPtel: [address] [place], [place] [phone] INJECTION 12/21/2010 Patient Education: Patient Medication Summary Completed 12/21/2010 Appointment: Lita Barakat WPtel: [address] [place] [address] FOLLOW UP 12/19/2010 Patient Education: Patient Medication Summary Completed 12/19/2010 Appointment: Lita Barakat WPtel: [address] [place] [address] LAB 12/07/2010 Patient Education: Patient Medication Summary Completed 12/07/2010 Appointment: Kimberly Villalba WPtel: [address] [place], [place] [phone] ACUTE ILLNESS 04/05/2010 Patient Education: Patient Medication Summary Completed 04/05/2010 Appointment: Lita Barakat WPtel: [address] [place], [place] [phone] WORK IN 03/14/2010 Patient Education: Patient Medication Summary Completed 03/14/2010 Appointment: Lita Barakat WPtel: [address] [place], [place] [phone] [place] LAB 03/02/2010 Visit Plan: HbA1C in 3mos. Continue Accu checks BID alternating times. Switch lexapro to celexa 01/13/2010 Appointment: Lita Barakat WPtel: [address] [place] [address] FOLLOW UP 01/13/2010 Patient Education: Patient Medication Summary Completed 01/13/2010 Appointment: Lita Barakat WPtel: [address] [place], [place] [phone] FOLLOW UP 01/11/2010 Visit Plan: Pt. will continue the Avalox and Doxycycline regimen as prescribed the previous day. He has been advised to continue inhalers, breathing treatments and oxygen therapy for at least the weekend. Moderate activity without strenuous exercise. The pt. will seek immediate re-eval if his symptoms worsen. 12/23/2009 Appointment: Kimberly Villalba WPtel: [address] [place], [place] [phone] FOLLOW UP 12/23/2009 Patient Education: Patient Medication [...] morning. 12/22/2009 Appointment: Kimberly Villalba WPtel: [address] [place] [phone] ACUTE ILLNESS 12/22/2009 Patient Education: Patient Medication Summary Completed 12/22/2009 Appointment: Kimberly Villalba WPtel: [address] [place] [phone] FOLLOW UP 12/21/2009 Appointment: Lita Barakat WPtel: [address] [place], [place] [phone] [place] INJECTION 12/16/2009 Patient Education: Patient Medication Summary Completed 12/16/2009 Appointment: Kimberly Villalba WPtel: [address] [place] [phone] ACUTE ILLNESS 12/13/2009 Patient Education: Patient Medication Summary Completed 12/13/2009 Care Plan: X-RAY EXAM OF SHOULDER lt shoulder (pain ra diates across the shoulder) Hand carried orders to [facility] LOINC : 28542-0 Ordered 12/13/2009 Care Plan: X-RAY EXAM THORAC SPINE 2VWS Hand carried order LOINC : 03189-1 Ordered 12/13/2009 Care Plan: X-RAY EXAM RIBS UNI 2 VIEWS Posterior ribs of lt. side Pt. hand carries order to [facility] LOINC : 92052-5 Ordered 12/13/2009 Referral: José Miguel Swanson WPtel: [address] [address] [place] Referral Appointment Requested Referral: José Miguel Swanson WPtel: [address] [address] [place] Referral Appointment Requested Referral: Chandu Quarles WPtel: [address] Quarles for screening colonoscopy. P atronaldo notified that [facility] office will book appt with him Initiated Referral: Santosh Machado WPtel: [address] [address] [place] Referral Appointment Requested Referral: José Miguel Swanson WPtel: [address] [address] [place] Referral Initiated Referral: Lopez Chacon [address] [facility] C&D [place] [address] [place] Referral Initiated Referral: Demetrius Benjamin WPtel: [address] [address] [place] Referral Appointment Requested Referral: José Miguel Swanson WPtel: [address] [address] [place] Referral Appointment Requested Referral: José Miguel Swanson WPtel: [address] [address] [place] Referral Initiated Instructions Comment . Saline nasal flushes prn. Tylenol/Motr in prn headache. Notify if persists/symptoms worsening. . MRI at [facility] Hydrocodone 5.325 1 po q [...]
[2020-03-28] MEDS ORDERED: LACTATED RINGERS 1,000 ML IV ONE (15:42)
[2020-03-28] MEDS ORDERED: methylPREDNISolone 125 MG (Solu-MEDROL) VIAL IV STA (15:42)
--- OUTSIDE RECORDS SUMMARY | 2020-03-28 15:42 | XMS REPORT | CCD ---
Author Author Leandro Barakat D.O. Organization [facility] Address [address] [place] [address] Phone Care Team Providers Care Social Work Assistant Name Role Phone Lita Barakat D.O., PP Unavailable CCM Unavailable Summary Purpose Interface Exchange Insurance Providers Payer name Policy type / Coverage type Covered libertarian ID Effective Begin Date Effective End Date [employer] MEDICARE Medicare Part B [id number] 2019 Unknown Family history Brother Diagnosis Age At Onset Cancer Unknown Father Diagnosis Age At Onset Heart disease Unknown Mother Diagnosis Age At Onset Heart disease Unknown Social History Social History Element Codes Description Effective Dates Tobacco history SNOMED CT: 9334353 Former smoker quit 15 years ago 08/07/2011 [...] R07.9 06/22/2016 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: [...] Start Date Stop Date Status Fill Instructions losartan 100 mg tablet RxNorm: 985157 1TD 03/18/2020 05/16/2020 Active albuterol sulfate 2.5 mg/3 mL (0.083 %) solution for n ebulization RxNorm: 355398 USE 1 VIAL IN NEBULIZER EVERY FOUR HOURS NEEDED FOR WHEEZING OR SOB 03/09/2020 04/22/2020 Active Levemir FlexTouch U-100 Insulin 100 unit/mL (3 mL) sub cutaneous pen RxNorm: 991045 INJECT 20 UNITS SQ QD 02/26/2020 03/21/2020 Active losartan 100 mg tablet RxNorm: 290602 1TD 02/03/2020 03/17/2020 Inactive Sinemet CR 50 mg-200 mg tablet,extended release RxNorm: 8343 41 1 Tablet(s) Oral three times a day 02/02/2020 07/31/2020 Active Generic For:*S INEMET CR 50/200 TABLET SA 07/08/2018 3:09:11 PM hydrocodone 10 mg-acetaminophen 325 mg tablet RxNorm: 736553 1 Tablet(s) Oral Q4H as needed for pain 01/29/2020 No Stop Date Active ipratropium 0.5 mg-albuterol 3 mg (2.5 mg base)/3 mL n ebulization soln RxNorm: 8753669 USE 1 VIAL IN NEBULIZER Q4H (THIS REPLACES ALBUTEROL S OLUTION) 01/08/2020 02/06/2020 Inactive prednisone 20 mg tablet RxNorm: 720877 1 Tablet(s) Oral two remy es a day 12/25/2019 01/01/2020 Inactive Levemir FlexTouch U-100 Insulin 100 unit/mL (3 mL) sub cutaneous pen RxNorm: 250103 10 Unit(s) Subcutaneous every night at bedtime 12/22/2019 N o Stop Date Active baclofen 10 mg tablet RxNorm: 273264 1 Tablet(s) Oral QPM for p ain/spasm 12/22/2019 01/21/2020 Inactive ipratropium 0.5 mg-albuterol 3 mg (2.5 mg base)/3 mL n ebulization soln RxNorm: 2508362 USE 1 VIAL IN NEBULIZER Q4H (THIS REPLACES ALBUTEROL S OLUTION) 11/27/2019 12/16/2019 Inactive hydrocodone 10 mg-acetaminophen 325 mg tablet RxNorm: 002007 1 Tablet(s) Oral Q4H as needed for pain 11/13/2019 01/28/2020 Inactive Seroquel 50 mg tablet RxNorm: 830758 1 Tablet(s) Oral QPM as ne eded for sleep 10/07/2019 12/21/2019 Inactive ropinirole 4 mg tablet RxNorm: 139371 3 TABLET(S) BY [facility] DAILY AT BEDTIME FOR RESTLESS LEGS 09/29/2019 12/27/2019 Inactive Generic For:REQU IP 4 MG TABLET 09/29/2019 7:52:42 AM N O T I C E Last quantity doesn't match original quantity ropinirole 4 mg tablet RxNorm: 477400 3 TABLET(S) BY [facility] DAILY AT BEDTIME FOR RESTLESS LEGS 09/26/2019 09/28/2019 Inactive Generic For:REQU IP 4 MG TABLET 09/26/2019 9:08:48 AM N O T I C E Last quantity doesn't match original quantity ipratropium 0.5 mg-albuterol 3 mg (2.5 mg base)/3 mL n ebulization soln RxNorm: 4586432 USE 1 VIAL IN NEBULIZER EVERY FOUR HOURS (THIS REPLACES ALBUTEROL SOLUTION) 09/26/2019 10/15/2019 Inactive Generic For:*DUO NEB 2.5-0.5 MG/3 ML SOLN 09/26/2019 9:08:53 AM hydrocodone 10 mg-acetaminophen 325 mg tablet RxNorm: 886696 1 Tablet(s) Oral Q4H as needed for pain 09/09/2019 09/09/2019 Inactive hydrocodone 10 mg-acetaminophen 325 mg tablet RxNorm: 510500 1 Tablet(s) Oral Q4H as needed for pain 09/09/2019 09/08/2019 Inactive ondansetron HCl 4 mg tablet RxNorm: 970457 1 Tablet(s) Oral QPM for nausea 08/12/2019 10/10/2019 Inactive ipratropium 0.5 mg-albuterol 3 mg (2.5 mg base)/3 mL n ebulization soln RxNorm: 1095342 1 Unit Dose INH Q4H 08/12/2019 09/25/2019 Inactive replaces albuterol solution Augmentin 875 mg-125 mg tablet RxNorm: 489745 1 Tablet(s) Oral two times a day 08/07/2019 08/17/2019 Inactive prednisone 20 mg tablet RxNorm: 647621 1 Tablet(s) Oral QD 08/05/2008/04/2019 Inactive prednisone 20 mg tablet RxNorm: 754588 1 Tablet(s) Oral QD 08/05/2008/06/2019 Inactive Levaquin 500 mg tablet RxNorm: 691281 1 Tablet(s) Oral QD Replaces azithromycin (z-pack) 07/31/2019 08/05/2019 Inactive Levaquin 500 mg tablet RxNorm: 959138 1 Tablet(s) Oral QD Replaces azithromycin (z-pack) 07/21/2019 07/26/2019 Inactive Levaquin 500 mg tablet RxNorm: 537728 1 Tablet(s) Oral QD Replaces azithromycin (z-pack) 07/21/2019 07/20/2019 Inactive Zithromax Z-Gui 250 mg tablet RxNorm: 828253 Tablet(s) Oral 019 07/22/2019 Inactive Zithromax Z-Gui 250 mg tablet RxNorm: 224065 Tablet(s) Oral 019 07/15/2019 Inactive Symbicort 160 mcg-4.5 mcg/actuation HFA aerosol inhaler RxNo rm: 6640639 2 Puff(s) Inhalation two times a day 07/14/2019 07/14/2019 Inactive Tessalon Perles 100 mg capsule RxNorm: 066163 1 Capsule(s) Oral Q8H as needed 07/14/2019 08/06/2019 Inactive Seroquel 50 mg tablet RxNorm: 026088 1 Tablet(s) Oral QPM as ne eded for sleep 07/01/2019 10/06/2019 Inactive ondansetron HCl 4 mg tablet RxNorm: 909116 1 Tablet(s) Oral QPM for nausea 06/24/2019 07/24/2019 Inactive Seroquel 25 mg tablet RxNorm: 678205 1 Tablet(s) Oral every nig ht at bedtime 06/19/2019 06/18/2019 Inactive Seroquel 25 mg tablet RxNorm: 514580 1 Tablet(s) Oral every nig ht at bedtime 06/19/2019 06/30/2019 Inactive trazodone 150 mg tablet RxNorm: 155567 1/2 Tablet(s) PO QHS as needed for sleep 06/11/2019 06/17/2019 Inactive replaces PA on doxep in trazodone 150 mg tablet RxNorm: 519340 1/2 Tablet(s) PO QHS as needed for sleep 05/12/2019 06/11/2019 Inactive replaces PA on doxep in Vitamin D3 5,000 unit tablet RxNorm: 734513 1 Tablet(s) PO QD 05/09 No Stop Date Active magnesium oxide 400 mg (241.3 mg magnesium) tablet RxNorm: 1 10340 1 Tablet(s) PO QHS 05/09/2019 No Stop Date Active cyanocobalamin (vit B-12) 1,000 mcg/mL injection solution Rx Norm: 471816 1 injection weekly for 4 weeks 1 Milliliter(s) Inj 05/09/2019 12/21/2019 Inactive ferrous sulfate 325 mg (65 mg iron) tablet RxNorm: 349031 1 Tab let(s) PO QD 05/09/2019 12/21/2019 Inactive ropinirole 4 mg tablet RxNorm: 909251 3 TABLET(S) BY [facility] DAILY AT BEDTIME FOR RESTLESS LEGS 03/26/2019 06/23/2019 Inactive Generic For:REQU IP 4 MG TABLET 03/26/2019 11:23:36 AM N O T I C E Last quantity doesn't match original quantity pantoprazole 40 mg tablet,delayed release RxNorm: 883199 Tablet(s) TAKE 1 TABLET BY MOUTH DAILY FOR STOMACH 03/24/2019 06/21/2019 Inactive Gener ic For:PROTONIX 40MG TAB EC 01/03/2019 1:23:44 PM hydroxyzine HCl 10 mg tablet RxNorm: 184032 1 Tablet(s) PO BID as needed 03/24/2019 04/06/2019 Inactive ipratropium-albuterol 0.5 mg-3 mg(2.5 mg base)/3 mL ne bulization soln RxNorm: 0896522 1 Unit Dose INH Q4H 03/21/2019 No Stop Date Active replaces albuterol solution meclizine 12.5 mg tablet RxNorm: 820306 1 Tablet(s) PO BID as neede d 03/21/2019 12/21/2019 Inactive losartan 100 mg tablet RxNorm: 480559 1 Tablet(s) PO QD replace s lisinopril 03/13/2019 09/08/2019 Inactive fluconazole 100 mg tablet RxNorm: 627399 1 Tablet(s) PO QD 03/13/2003/19/2019 Inactive nystatin 100,000 unit/mL oral suspension RxNorm: 033093 5 Unit( s) PO QID 03/13/2019 03/26/2019 Inactive tramadol 50 mg tablet RxNorm: 614739 1 Tablet(s) PO TID as needed for pain TAKE 2 TABS OF EXTRA STRENGTH TYLENOL WITH EACH DOSE 03/10/2019 04/06/2019 Inactive Generic For:*ULTRAM 50 MG TABLET 01/15/2019 4:55:26 PM Sinemet CR 50 mg-200 mg tablet,extended release RxNorm: 8343 41 1 Tablet(s) PO TID 02/26/2019 08/24/2019 Inactive Generic For:*SIN EMET CR 50/200 TABLET SA 07/08/2018 3:09:11 PM trazodone 150 mg tablet RxNorm: 553120 1/2 Tablet(s) PO QHS as needed for sleep 02/13/2019 02/12/2019 Inactive trazodone 150 mg tablet RxNorm: 554358 1/2 Tablet(s) PO QHS as needed for sleep 02/13/2019 02/25/2019 Inactive replaces PA on doxep in doxepin 10 mg capsule RxNorm: 4664793 1-2 Capsule(s) PO QHS prn sleep 02/13/2019 02/13/2019 Inactive Novolog U-100 Insulin aspart 100 unit/mL subcutaneous soluti on RxNorm: 696796 INJECT 10 UNIT(S) SUBCUTANEOUSLY BEFORE MEALS 01/31/2019 05/30/2019 In active 01/31/2019 1:39:10 PM ipratropium-albuterol 0.5 mg-3 mg(2.5 mg base)/3 mL ne bulization soln RxNorm: 0489862 1 Unit Dose INH Q4H 01/17/2019 03/20/2019 Inactive replaces albuterol solution tramadol 50 mg tablet RxNorm: 608850 1 Tablet(s) PO TID as needed for pain TAKE 2 TABS OF EXTRA STRENGTH TYLENOL WITH EACH DOSE 01/15/2019 02/03/2019 Inactive Generic For:*ULTRAM 50 MG TABLET 01/15/2019 4:55:26 PM Sinemet CR 50 mg-200 mg tablet,extended release RxNorm: 8343 41 1 Tablet(s) PO BID 01/03/2019 02/25/2019 Inactive Generic For:*SIN EMET CR 50/200 TABLET SA 07/08/2018 3:09:11 PM losartan 100 mg tablet RxNorm: 629485 1 Tablet(s) PO QD replace s lisinopril 01/03/2019 03/12/2019 Inactive Symbicort 160 mcg-4.5 mcg/actuation HFA aerosol inhaler RxNo rm: 5937854 2 Puff(s) INH BID 01/03/2019 01/02/2019 Inactive pantoprazole 40 mg tablet,delayed release RxNorm: 348879 TAKE 1 TABLET BY MOUTH DAILY FOR STOMACH 01/03/2019 03/23/2019 Inactive Generic For:[place] OTONIX 40MG TAB EC 01/03/2019 1:23:44 PM nystatin 100,000 unit/mL oral suspension RxNorm: 148668 Unit(s) 5 Unit(s) PO QID swish and spit 01/02/2019 11/11/2019 Inactive Incruse Ellipta 62.5 mcg/actuation powder for inhalation RxN orm: 8082735 1 Capsule(s) INH QD 12/25/2018 12/21/2019 Inactive Tessalon Perles 100 mg capsule RxNorm: 879554 1 Capsule(s) PO T ID for cough 12/25/2018 02/25/2019 Inactive Medrol (Gui) 4 mg tablets in a dose pack RxNorm: 876565 Tablet(s) PO Use as directed 12/23/2018 01/02/2019 Inactive Levemir FlexTouch U-100 Insulin 100 unit/mL (3 mL) sub cutaneous pen RxNorm: 237446 20 Unit(s) SQ QD with pen needles 12/13/2018 05/11/2019 Inactiv e prednisone 20 mg tablet RxNorm: 011751 1 Tablet(s) PO QD 12/12/2018 0 12/11/2018 Inactive prednisone 20 mg tablet RxNorm: 692765 1 Tablet(s) PO QD 12/12/2018 0 12/16/2018 Inactive promethazine 6.25 mg-codeine 10 mg/5 mL syrup RxNorm: 889927 5 Milliliter(s) PO QHS as needed for cough 12/09/2018 12/18/2018 Inactive cefdinir 300 mg capsule RxNorm: 964449 1 Capsule(s) PO BID 12/10/19 19 12/18/2018 Inactive fluconazole 100 mg tablet RxNorm: 447492 1 Tablet(s) PO QD 12/06/1912/08/2018 Inactive ropinirole 4 mg tablet RxNorm: 739365 3 Tablet(s) PO QHS for re stless legs 12/04/2018 03/03/2019 Inactive Novolog U-100 Insulin aspart 100 unit/mL subcutaneous soluti on RxNorm: 959354 INJECT 10 UNIT(S) SUBCUTANEOUSLY BEFORE MEALS 12/04/2018 01/30/2019 In active 12/04/2018 10:02:42 AM nystatin 100,000 unit/mL oral suspension RxNorm: 557405 5 Unit(s) PO QID swish and spit 11/25/2018 12/18/2018 Inactive ropinirole 4 mg tablet RxNorm: 340093 3 Tablet(s) PO QHS for re stless legs 11/04/2018 12/03/2018 Inactive prednisone 20 mg tablet RxNorm: 203106 1 Tablet(s) PO BID 10/23/2018 10/29/2018 Inactive ropinirole 4 mg tablet RxNorm: 982618 3 Tablet(s) PO QHS for re stless legs 10/14/2018 11/04/2018 Inactive pantoprazole 40 mg tablet,delayed release RxNorm: 659967 1 Tablet(s) PO QD forstomach 10/10/2018 01/02/2019 Inactive Symbicort 160 mcg-4.5 mcg/actuation HFA aerosol inhaler RxNo rm: 7163896 2 Puff(s) INH BID 10/10/2018 01/03/2019 Inactive Novolog U-100 Insulin aspart 100 unit/mL subcutaneous soluti on RxNorm: 052405 INJECT 10 UNIT(S) SUBCUTANEOUSLY BEFORE MEALS 10/10/2018 12/03/2018 In active 10/10/2018 11:30:01 AM Sinemet CR 50 mg-200 mg tablet,extended release RxNorm: 8343 41 1 Tablet(s) PO BID 09/26/2018 01/03/2019 Inactive Generic For:*SIN EMET CR 50/200 TABLET SA 07/08/2018 3:09:11 PM ropinirole 4 mg tablet RxNorm: 764054 2 Tablet(s) PO QHS for re stless legs 09/18/2018 10/13/2018 Inactive metformin ER 1,000 mg tablet,extended release 24hr RxNorm: 1 678544 1 Tablet(s) PO BID 09/09/2018 12/18/2018 Inactive ropinirole 4 mg tablet RxNorm: 814834 2 Tablet(s) PO QHS for re stless legs 08/21/2018 09/17/2018 Inactive doxycycline hyclate 100 mg capsule RxNorm: 5168638 1 Capsule(s) PO BID 08/07/2018 08/13/2018 Inactive ropinirole 4 mg tablet RxNorm: 106636 1 Tablet(s) PO QHS replac es 1mg dose 08/07/2018 08/20/2018 Inactive ropinirole 2 mg tablet RxNorm: 199057 TAKE 3 TABLETS BY MOUTH DAILY AT BEDTIME DO NOT EXCEED 3 TABLETS PER DAY!!!! 07/31/2018 08/06/2018 Inactive Generic For:REQUIP 2 MG TABLET 07/30/2018 3:50:28 PM Symbicort 160 mcg-4.5 mcg/actuation HFA aerosol inhaler RxNo rm: 9150741 2 Puff(s) INH BID 07/12/2018 10/09/2018 Inactive Sinemet CR 50 mg-200 mg tablet,extended release RxNorm: 8343 41 TAKE 1 TABLET BY MOUTH TWICE DAILY 07/08/2018 09/26/2018 Inactive Generic For:*S INEMET CR 50/200 TABLET SA 07/08/2018 3:09:11 PM losartan 100 mg tablet RxNorm: 255022 1 Tablet(s) PO QD replace s lisinopril 06/17/2018 12/13/2018 Inactive Novolog U-100 Insulin aspart 100 unit/mL subcutaneous soluti on RxNorm: 965138 10 Unit(s) SQ AC 06/17/2018 10/09/2018 Inactive albuterol sulfate 2.5 mg/3 mL (0.083 %) solution for n ebulization RxNorm: 226302 Milliliter(s) INH USE 1 VIAL IN NEBULIZE R EVERY FOUR HOURS NEEDED FOR WHEEZING OR SHORTNESS OF BREATH 06/13/2018 01/16/2019 Inactive Generic For:*PROVENTIL 0.83 MG/ML SOLUTN 06/13/2013 2:04:46 PM ropinirole 2 mg tablet RxNorm: 576461 3 Tablet(s) PO QH S DO NOT EXCEED 6MG (3 TABLETS) PER DAY!!!! 06/13/2018 07/31/2018 Inactive atorvastatin 40 mg tablet RxNorm: 325986 Tablet(s) TAKE 1 TABLET BY MOUTH EVERY DAY 05/13/2018 12/18/2018 Inactive Generic For:LIPI TOR 40MG TAB 05/01/2018 8:37:31 AM Sinemet CR 50 mg-200 mg tablet,extended release RxNorm: 8343 41 1 Tablet(s) PO BID 05/08/2018 07/06/2018 Inactive Lidocaine Viscous 2 % mucosal solution RxNorm: 7817149 5 Milliliter(s) PO QID as needed 05/02/2018 08/06/2018 Inactive Diflucan 100 mg tablet RxNorm: 723568 1 Tablet(s) PO QD 05/02/2018 Inactive atorvastatin 40 mg tablet RxNorm: 177490 TAKE 1 TABLET BY MOUTH EVERY DAY 05/01/2018 05/13/2018 Inactive Generic For:LIPITOR 40MG TAB 05/01/2018 8:37:31 AM nystatin 100,000 unit/mL oral suspension RxNorm: 331309 5 Unit(s) PO QID (before meals and at bedtime) 04/24/2018 04/30/2018 Inactive Ventolin HFA 90 mcg/actuation aerosol inhaler RxNorm: 981978 2 Puff(s) INH Q4H as needed one inhaler for home and one inhaler for car 04/23/201812/18 Inactive Mucinex 600 mg tablet, extended release RxNorm: 400263 1 Tablet(s) PO BID for congestion 04/22/2018 05/21/2018 Inactive prednisone 10 mg tablet RxNorm: 952706 Tablet(s) PO as directeds 08/06/2018 Inactive ropinirole 2 mg tablet RxNorm: 257790 3 Tablet(s) PO QH S DO NOT EXCEED 6MG (3 TABLETS) PER DAY!!!! 04/09/2018 05/08/2018 Inactive gabapentin 300 mg capsule RxNorm: 501636 1-2 Capsule(s) PO QHS 0702/201804/08/2018 Inactive ropinirole 2 mg tablet RxNorm: 391425 1 Tablet(s) PO QHS 03/28/2018 0 04/08/2018 Inactive gabapentin 300 mg capsule RxNorm: 923287 1-2 Capsule(s) PO QHS 02/2303/29/2018 Inactive gabapentin 300 mg capsule RxNorm: 851929 1-2 Capsule(s) PO QHS 02/2203/13/2018 Inactive gabapentin 300 mg capsule RxNorm: 211954 2 Capsule(s) PO QHS 201703/11/2018 Inactive ropinirole 2 mg tablet RxNorm: 886007 1 Tablet(s) PO QHS 02/28/2018 0 03/28/2018 Inactive ropinirole 2 mg tablet RxNorm: 609410 1 Tablet(s) PO QHS 02/28/2018 0 02/27/2018 Inactive gabapentin 300 mg capsule RxNorm: 546481 1 Capsule(s) PO QHS 201702/27/2018 Inactive pantoprazole 40 mg tablet,delayed release RxNorm: 653196 1 Tablet(s) PO QD forstomach 01/23/2018 05/22/2018 Inactive Voltaren 1 % topical gel RxNorm: 323814 1 Gram(s) TOP QID to ri ght knee 01/23/2018 02/04/2018 Inactive metformin ER 500 mg tablet,extended release 24hr RxNorm: 860 975 2 Tablet(s) PO BID 01/09/2018 12/08/2018 Inactive Requip 1 mg tablet RxNorm: 994832 1 Tablet(s) PO QHS 01/09/201802/27 Inactive prednisone 20 mg tablet RxNorm: 947768 1 Tablet(s) PO T ID for 3 days then 1 po BID for 3 days then one daily for 3 days 01/02/2018 02/03/2018 Inactiv e Levaquin 500 mg tablet RxNorm: 476156 1 Tablet(s) PO QD 01/02/2018 Inactive ProAir HFA 90 mcg/actuation aerosol inhaler RxNorm: 794233 2 Puff(s) INH Q4H as needed 12/28/2017 No Stop Date Active please switch to ventolin if insurance doesn't cover montelukast 10 mg tablet RxNorm: 013093 1 Tablet(s) PO QD 12/28/2017 02/03/2018 Inactive Levaquin 500 mg tablet RxNorm: 503252 1 Tablet(s) PO QD 12/21/2017 Inactive ProAir HFA 90 mcg/actuation aerosol inhaler RxNorm: 423087 2 Puff(s) INH Q4H as needed 12/21/2017 12/27/2017 Inactive please switch to ventolin if insurance doesn't cover doxycycline hyclate 100 mg tablet RxNorm: 077749 1 Tablet(s) PO BID 12/17/2017 12/26/2017 Inactive Levemir FlexTouch U-100 Insulin 100 unit/mL (3 mL) sub cutaneous pen RxNorm: 653051 20 Unit(s) SQ QD with pen needles---Due for labs 12/11/2017 02/03/2018 Inactive Requip 1 mg tablet RxNorm: 754950 1 Tablet(s) PO QHS 12/10/201712/09 Inactive Requip 1 mg tablet RxNorm: 364531 1 Tablet(s) PO QHS 12/10/201701/09 Inactive albuterol sulfate 2.5 mg/3 mL (0.083 %) solution for n ebulization RxNorm: 465639 Milliliter(s) INH USE 1 VIAL IN NEBULIZE R EVERY FOUR HOURS NEEDED FOR WHEEZING OR SHORTNESS OF BREATH 12/05/2017 06/13/2018 Inactive Generic For:*PROVENTIL 0.83 MG/ML SOLUTN 06/13/2013 2:04:46 PM Tudorza Pressair 400 mcg/actuation breath activated RxNorm: 8839212 1 Puff(s) INH BID 12/03/2017 12/10/2017 Inactive Levemir FlexTouch U-100 Insulin 100 unit/mL (3 mL) sub cutaneous pen RxNorm: 421200 10 Unit(s) SQ QD with pen needles---Due for labs 11/16/2017 12/10/2017 Inactive Zofran ODT 4 mg disintegrating tablet RxNorm: 516443 1 Tablet(s) PO Q4H as needed for nausea 10/17/2017 02/04/2018 Inactive Efudex 5 % topical cream RxNorm: 872719 Application TOP QD prn to precancer skin lesions 10/17/2017 02/03/2018 Inactive Sinemet CR 50 mg-200 mg tablet,extended release RxNorm: 8343 41 1 Tablet(s) PO BID 10/17/2017 02/05/2018 Inactive Sinemet CR 50 mg-200 mg tablet,extended release RxNorm: 8343 41 1 Tablet(s) PO QHS 09/25/2017 10/16/2017 Inactive gabapentin 600 mg tablet RxNorm: 905107 1 Tablet(s) PO BID 08/15/20 17 08/14/2017 Inactive gabapentin 600 mg tablet RxNorm: 874844 1 Tablet(s) PO BID 08/15/20 17 12/10/2017 Inactive Novolog U-100 Insulin aspart 100 unit/mL subcutaneous soluti on RxNorm: 680896 10 Unit(s) SQ AC 08/15/2017 02/03/2018 Inactive Novolog 100 unit/mL subcutaneous solution RxNorm: 764443 10 Uni t(s) SQ AC 08/13/2017 08/14/2017 Inactive prednisone 20 mg tablet RxNorm: 567678 2 Tablet(s) PO QD 08/02/2017 1 10/04/2016 Inactive gabapentin 600 mg tablet RxNorm: 810715 Tablet(s) 1 Tab let(s) PO QHS replaces 300mg dose 07/09/2017 08/14/2017 Inactive Breo Ellipta 100 mcg-25 mcg/dose powder for inhalation RxNor m: 8213072 1 Unit Dose INH QD 07/02/2017 08/30/2017 Inactive Tudorza Pressair 400 mcg/actuation breath activated RxNorm: 5562215 1 Puff(s) INH BID 06/18/2017 12/02/2017 Inactive gabapentin 600 mg tablet RxNorm: 516719 1 Tablet(s) PO QHS repl aces 300mg dose 06/14/2017 07/08/2017 Inactive metformin ER 1,000 mg tablet,extended release 24hr RxNorm: 1 361170 1 Tablet(s) PO BID 05/29/2017 01/08/2018 Inactive cyclobenzaprine 5 mg tablet RxNorm: 754366 1 Tablet(s) PO TID 05/2906/07/2017 Inactive metformin ER 1,000 mg tablet,extended release 24hr RxNorm: 8 73137 1 Tablet(s) PO BID 05/25/2017 05/28/2017 Inactive metformin ER 1,000 mg tablet,extended release 24hr RxNorm: 8 17898 1 Tablet(s) PO BID 05/22/2017 05/24/2017 Inactive Amaryl 2 mg tablet RxNorm: 316130 1 Tablet(s) PO BID 05/01/201702/03 Inactive glimepiride 2 mg tablet RxNorm: 631180 1 Tablet(s) PO BID 04/19/2017 02/03/2018 Inactive ferrous sulfate 325 mg (65 mg iron) tablet RxNorm: 720530 1 Tab let(s) PO QHS 04/17/2017 02/03/2018 Inactive Requip 4 mg tablet RxNorm: 455364 1 Tablet(s) PO BID 04/12/201704/11 Inactive Requip 4 mg tablet RxNorm: 795634 1 Tablet(s) PO BID 04/12/201704/15 Inactive Levemir FlexTouch 100 unit/mL (3 mL) subcutaneous insulin pe n RxNorm: 096129 10 Unit(s) SQ QD with pen needles---Due for labs 04/05/2017 11/15/2017 In active Silenor 3 mg tablet RxNorm: 030214 1 Tablet(s) PO QHS 04/05/201709/25 Inactive ropinirole 4 mg tablet RxNorm: 311783 1 Tablet(s) PO QHS 03/29/2017 0 04/01/2017 Inactive ropinirole 4 mg tablet RxNorm: 737145 1 Tablet(s) PO QHS 03/29/2017 0 03/28/2017 Inactive Requip 4 mg tablet RxNorm: 572171 1 Tablet(s) PO QHS 03/28/201704/01 Inactive gabapentin 600 mg tablet RxNorm: 748289 1 Tablet(s) PO QHS repl aces 300mg dose 03/28/2017 04/15/2017 Inactive Requip 4 mg tablet RxNorm: 133759 1 Tablet(s) PO QHS 03/23/201703/27 Inactive gabapentin 600 mg tablet RxNorm: 239273 1 Tablet(s) PO QHS 03/13/20 17 03/12/2017 Inactive gabapentin 600 mg tablet RxNorm: 742906 1 Tablet(s) PO QHS 03/13/20 17 03/27/2017 Inactive gabapentin 300 mg capsule RxNorm: 841895 1 Capsule(s) PO QPM 201603/12/2017 Inactive Generic For:NEURONTIN 300 MG CAPSULE 01/22/2017 10:10:39 AM losartan 100 mg tablet RxNorm: 092081 1 Tablet(s) PO QD replace s lisinopril 02/21/2017 06/17/2018 Inactive gabapentin 300 mg capsule RxNorm: 356472 TAKE 1 CAPSULE BY MOUT H EVERY EVENING 01/22/2017 02/21/2017 Inactive Generic For:NEURONTI N 300 MG CAPSULE 01/22/2017 10:10:39 AM gabapentin 300 mg capsule RxNorm: 493795 1 Capsule(s) PO QPM 201601/21/2017 Inactive Requip 4 mg tablet RxNorm: 213684 1 Tablet(s) PO QHS 12/21/201603/20 Inactive Effient 10 mg tablet RxNorm: 439889 1 Tablet(s) PO QD 12/12/201612/23 Inactive gabapentin 300 mg capsule RxNorm: 674686 1 Capsule(s) PO QPM 201612/03/2016 Inactive gabapentin 300 mg capsule RxNorm: 366575 1 Capsule(s) PO QPM 201612/13/2016 Inactive Requip 4 mg tablet RxNorm: 947344 1 Tablet(s) PO QHS 11/28/201612/21 Inactive atorvastatin 40 mg tablet RxNorm: 611705 Tablet(s) 1 Tablet(s) PO Q D 11/22/2016 08/18/2017 Inactive atorvastatin 40 mg tablet RxNorm: 831514 1 Tablet(s) PO QD 11/23/19 17 11/21/2016 Inactive ropinirole 1 mg tablet RxNorm: 687979 2.5 Tablet(s) PO QPM for legs/sleep 11/14/2016 11/27/2016 Inactive nystatin 100,000 unit/mL oral suspension RxNorm: 951370 5 Unit(s) PO QID swish and spit 10/31/2016 02/03/2018 Inactive fluconazole 100 mg tablet RxNorm: 175370 1 Tablet(s) PO QD 10/31/19 17 11/09/2016 Inactive doxycycline hyclate 100 mg capsule RxNorm: 5053757 1 Capsule(s) PO BID 10/03/2016 10/12/2016 Inactive Levemir FlexTouch 100 unit/mL (3 mL) subcutaneous insulin pe n RxNorm: 170953 10 Unit(s) SQ QD with pen needles 09/18/2016 04/04/2017 Inactive amitriptyline 25 mg tablet RxNorm: 411127 1 Tablet(s) P O QHS as needed for sleep 09/04/2016 10/17/2016 Inactive ropinirole 1 mg tablet RxNorm: 321215 1.5 Tablet(s) PO QPM for legs/sleep 09/04/2016 11/13/2016 Inactive amitriptyline 25 mg tablet RxNorm: 415971 1 Tablet(s) P O QHS as needed for sleep 08/22/2016 09/03/2016 Inactive clopidogrel 75 mg tablet RxNorm: 046552 1 Tablet(s) PO QD 08/10/2016 10/17/2016 Inactive Zoloft 100 mg tablet RxNorm: 160595 2 Tablet(s) PO QHS 08/10/2016 Inactive atorvastatin 40 mg tablet RxNorm: 888079 1 Tablet(s) PO QD 08/10/2010/17/2016 Inactive ropinirole 1 mg tablet RxNorm: 279962 1 Tablet(s) PO QPM for le gs/sleep 08/10/2016 09/03/2016 Inactive losartan 100 mg tablet RxNorm: 322706 1 Tablet(s) PO QD replace s lisinopril 07/20/2016 02/21/2017 Inactive Zofran 4 mg tablet RxNorm: 999010 1 Tablet(s) PO Q4H as needed for nausea 07/06/2016 10/17/2016 Inactive Flagyl 500 mg tablet RxNorm: 416143 1 Tablet(s) PO TID 07/06/2016 Inactive Plavix 75 mg tablet RxNorm: 014294 1 Tablet(s) PO QD 06/08/201607/05 Inactive isosorbide mononitrate ER 30 mg tablet,extended release 24 h r RxNorm: 884564 1 Tablet(s) PO QAM 06/08/2016 08/09/2016 Inactive atorvastatin 40 mg tablet RxNorm: 724846 1 Tablet(s) PO QD 06/08/20 16 08/09/2016 Inactive hydrochlorothiazide 12.5 mg tablet RxNorm: 536481 1 Tablet(s) PO QA M 06/08/2016 07/05/2016 Inactive metformin ER 1,000 mg tablet,extended release 24hr RxNorm: 8 81404 1 Tablet(s) PO BID 06/08/2016 09/05/2016 Inactive metoprolol tartrate 25 mg tablet RxNorm: 569640 1/2 Tablet(s) PO BI D 06/08/2016 08/09/2016 Inactive Zoloft 100 mg tablet RxNorm: 599094 2 Tablet(s) PO QHS 04/03/2016 Inactive metformin ER 1,000 mg tablet,extended release 24hr RxNorm: 8 74025 Tablet(s) 1 Tablet(s) PO QD 03/30/2016 12/18/2018 Inactive Levemir FlexTouch 100 unit/mL (3 mL) subcutaneous insulin pe n RxNorm: 557153 10 Unit(s) SQ QD 03/09/2016 03/08/2016 Inactive Levemir FlexTouch 100 unit/mL (3 mL) subcutaneous insulin pe n RxNorm: 961382 10 Unit(s) SQ QD with pen needles 03/09/2016 03/20/2016 Inactive Mobic 15 mg tablet RxNorm: 033245 1 Tablet(s) PO QD for foot pain 0 02/17/2016 03/17/2016 Inactive Zoloft 100 mg tablet RxNorm: 062915 1 1/2 Tablet(s) PO QHS 01/31/20 16 04/02/2016 Inactive omeprazole 20 mg capsule,delayed release RxNorm: 552808 TAKE 2 CAPSULES BY MOUTH EVERY DAY 01/12/2016 08/09/2016 Inactive Generic For:*CHERYL LOSEC [address] 01/12/2016 8:58:34 AM Zoloft 100 mg tablet RxNorm: 209238 1/2 Tablet(s) PO QH S for 1 week then 1 tablet po q HS 12/30/2015 01/27/2016 Inactive Ventolin HFA 90 mcg/actuation aerosol inhaler RxNorm: 030271 2 Puff(s) INH QID as needed for shortness of breath 12/30/2015 02/03/2018 Inactive [AttnRPh: Saving apply/adjudicate RxGRP:SG20 RxBIN:[id number] RxPCN: ID#:[id number]] metformin ER 1,000 mg tablet,extended release 24hr RxNorm: 8 02906 1 Tablet(s) PO QD 12/20/2015 03/18/2016 Inactive clindamycin 300 mg capsule RxNorm: 440599 1 Capsule(s) PO TID 12/0512/15/2015 Inactive mupirocin 2 % topical cream RxNorm: 499724 TOP to facial lesion s twice daily 11/15/2015 12/15/2015 Inactive cefdinir 300 mg capsule RxNorm: 635764 1 Capsule(s) PO BID 11/15/19 16 11/24/2015 Inactive Medrol (Gui) 4 mg tablets in a dose pack RxNorm: 198174 Tablet(s) PO as directed 10/11/2015 12/15/2015 Inactive albuterol sulfate 2.5 mg/3 mL (0.083 %) solution for n ebulization RxNorm: 417687 INH USE 1 VIAL IN NEBULIZER EVERY FOUR H OURS NEEDED FOR WHEEZING OR SHORTNESS OF BREATH 10/05/2015 10/04/2015 Inactive Generic For:*PRO VENTIL 0.83 MG/ML SOLUTN 06/13/2013 2:04:46 PM doxycycline hyclate 100 mg capsule RxNorm: 0225694 1 Capsule(s) PO BID 10/05/2015 10/14/2015 Inactive albuterol sulfate 2.5 mg/3 mL (0.083 %) solution for n ebulization RxNorm: 429713 Milliliter(s) INH USE 1 VIAL IN NEBULIZE R EVERY FOUR HOURS NEEDED FOR WHEEZING OR SHORTNESS OF BREATH Dx: J44.9 10/05/2015 12/05/2017 Inacti ve Generic For:*PROVENTIL 0.83 MG/ML SOLUTN 06/13/2013 2:04:46 PM albuterol sulfate 2.5 mg/3 mL (0.083 %) solution for n ebulization RxNorm: 535689 3 Milliliter(s) INH USE 1 VIAL IN NEBULI ZER EVERY FOUR HOURS NEEDED FOR WHEEZING OR SHORTNESS OF BREATH 09/06/2015 10/04/2015 Inactive Generic For:*PROVENTIL 0.83 MG/ML SOLUTN 06/13/2013 2:04:46 PM Tradjenta 5 mg tablet RxNorm: 8337978 2 Tablet(s) PO QD 07/22/2015 Inactive albuterol sulfate 2.5 mg/3 mL (0.083 %) solution for n ebulization RxNorm: 528252 3 Milliliter(s) INH USE 1 VIAL IN NEBULI ZER EVERY FOUR HOURS NEEDED FOR WHEEZING OR SHORTNESS OF BREATH 06/29/2015 09/05/2015 Inactive Generic For:*PROVENTIL 0.83 MG/ML SOLUTN 06/13/2013 2:04:46 PM albuterol sulfate 2.5 mg/3 mL (0.083 %) solution for n ebulization RxNorm: 205805 Milliliter(s) INH USE 1 VIAL IN NEBULIZE R EVERY FOUR HOURS NEEDED FOR WHEEZING OR SHORTNESS OF BREATH 06/29/2015 12/04/2017 Inactive Generic For:*PROVENTIL 0.83 MG/ML SOLUTN 06/13/2013 2:04:46 PM doxycycline hyclate 100 mg tablet RxNorm: 949149 1 Tablet(s) PO BID 06/28/2015 07/07/2015 Inactive losartan 100 mg tablet RxNorm: 992792 1 Tablet(s) PO QD -replac es lisinopril 06/14/2015 09/05/2015 Inactive metformin ER 1,000 mg tablet,extended release 24hr RxNorm: 8 37989 1 Tablet(s) PO QD 06/14/2015 09/11/2015 Inactive losartan 100 mg tablet RxNorm: 336783 1 Tablet(s) PO QD -replac es lisinopril 06/14/2015 12/10/2015 Inactive Zocor 20 mg tablet RxNorm: 920297 Tablet(s) Tablet(s) 1 Tablet(s) PO QD -needs lipids labs 06/14/2015 06/14/2015 Inactive atorvastatin 40 mg tablet RxNorm: 363540 1 Tablet(s) PO QD repl aces simvastatin 06/14/2015 12/10/2015 Inactive loratadine 10 mg tablet RxNorm: 783223 Tablet(s) 1 Tablet(s) PO QD for drainage 06/14/2015 06/07/2016 Inactive Celexa 40 mg tablet RxNorm: 026962 1 Tablet(s) PO QD TA KE ONE (1) TABLET BY MOUTH DAILY 06/14/2015 12/29/2015 Inactive Generic For:HARJINDER XA 40 MG TABLET clindamycin 300 mg capsule RxNorm: 575615 2 Capsule(s) PO BID 06/0306/12/2015 Inactive metformin ER 1,000 mg tablet,extended release 24hr RxNorm: 8 11849 1 Tablet(s) PO QD 06/03/2015 06/02/2015 Inactive metformin ER 1,000 mg tablet,extended release 24hr RxNorm: 8 47400 1 Tablet(s) PO QD 06/03/2015 06/13/2015 Inactive mupirocin 2 % topical ointment RxNorm: 644294 TOP apply to open lesion of knee twice daily 06/03/2015 01/30/2016 Inactive Zocor 20 mg tablet RxNorm: 253632 Tablet(s) 1 Tablet(s ) PO QD -needs lipids labs 05/13/2015 06/13/2015 Inactive Celexa 40 mg tablet RxNorm: 511534 1 Tablet(s) PO QD TA KE ONE (1) TABLET BY MOUTH DAILY 05/13/2015 06/13/2015 Inactive Generic For:HARJINDER XA 40 MG TABLET Zocor 20 mg tablet RxNorm: 260933 Tablet(s) 1 Tablet(s ) PO QD -needs lipids labs 02/23/2015 03/24/2015 Inactive loratadine 10 mg tablet RxNorm: 933067 1 Tablet(s) PO QD for dr saenz 12/24/2014 06/13/2015 Inactive Zocor 20 mg tablet RxNorm: 273315 1 Tablet(s) PO QD -needs lipi ds labs 11/17/2014 02/23/2015 Inactive Celexa 40 mg tablet RxNorm: 992332 1 Tablet(s) PO QD 1 Tablet(s) PO QD 1 Tablet(s) PO QD Generic OKAY 11/11/2014 05/13/2015 Inactive Zocor 20 mg tablet RxNorm: 471172 1 Tablet(s) PO QD -needs lipi ds labs 11/11/2014 11/16/2014 Inactive omeprazole 20 mg capsule,delayed release RxNorm: 862862 2 Capsule(s) PO QD TAKE 2 CAPSULES BY MOUTH DAILY 10/27/2014 04/24/2015 Inactive Generi c For:*PRILOSEC 20 MG CAPSULE trazodone 50 mg tablet RxNorm: 496315 1 1/2 Tablet(s) PO QHS 201412/29/2015 Inactive losartan 100 mg tablet RxNorm: 368605 1 Tablet(s) PO QD -replac es lisinopril 10/26/2014 04/23/2015 Inactive Levaquin 500 mg tablet RxNorm: 165113 1 Tablet(s) PO QD 10/08/2014 Inactive Levaquin 500 mg tablet RxNorm: 454436 1 Tablet(s) PO QD 10/08/2014 Inactive Diflucan 100 mg tablet RxNorm: 775845 1 Tablet(s) PO QD 10/06/2014 Inactive DuoNeb 0.5 mg-3 mg(2.5 mg base)/3 mL solution for nebulizati on RxNorm: 0454138 3 Milliliter(s) INH QID 09/23/2014 08/09/2016 Inactive Ventolin HFA 90 mcg/actuation aerosol inhaler RxNorm: 368221 2 Puff(s) INH QID as needed for shortness of breath 09/21/2014 12/29/2015 Inactive [AttnRPh: Saving apply/adjudicate RxGRP:SG20 RxBIN:[id number] RxPCN: ID#:[id number]] promethazine-codeine 6.25 mg-10 mg/5 mL syrup RxNorm: 982123 1 Teaspoon(s) PO QHS as needed for cough 09/08/2014 09/20/2014 Inactive prednisone 20 mg tablet RxNorm: 156297 1 Tablet(s) PO BID 09/02/2014 09/08/2014 Inactive promethazine-codeine 6.25 mg-10 mg/5 mL syrup RxNorm: 442872 1 Teaspoon(s) PO Q4H 09/02/2014 09/20/2014 Inactive doxycycline monohydrate 100 mg capsule RxNorm: 458408 1 Capsule (s) PO BID 09/02/2014 09/07/2014 Inactive Tessalon Perles 100 mg capsule RxNorm: 299373 1 Capsule (s) PO TID as needed for cough 08/31/2014 09/20/2014 Inactive Actos 15 mg tablet RxNorm: 610436 1 Tablet(s) PO QAM 1 Tablet(s ) PO QAM 08/26/2014 09/20/2014 Inactive loratadine 10 mg tablet RxNorm: 157644 1 Tablet(s) PO QD for dr saenz 08/26/2014 10/26/2014 Inactive Zithromax 500 mg tablet RxNorm: 378171 1 Tablet(s) PO QD 08/25/2014 1 11/01/2013 Inactive Zithromax 500 mg tablet RxNorm: 358013 1 Tablet(s) PO QD 08/25/2014 1 10/25/2013 Inactive Trazadone 75mg Tablet RxNorm: 1 Tablet(s) PO QHS 08/10/20142018 Inactive Zocor 20 mg tablet RxNorm: 964409 1 Tablet(s) PO QD 08/10/20142014 Inactive Trazadone 75mg Tablet RxNorm: 1 Tablet(s) PO QHS as need ed for sleep 08/10/2014 10/08/2014 Inactive Celexa 40 mg tablet RxNorm: 044435 1 Tablet(s) PO QD 1 Tablet(s) PO QD 1 Tablet(s) PO QD Generic OKAY 06/09/2014 10/06/2014 Inactive Actos 15 mg tablet RxNorm: 319056 1 Tablet(s) PO QAM 05/12/201408/26 Inactive lisinopril 20 mg tablet RxNorm: 592482 1 Tablet(s) PO QD 05/12/2014 0 10/26/2014 Inactive TAKE ONE TABLET BY MOUTH EVERY DAY;Gener ic For:*PRINIVIL 20 MG TABLET [AttnRPh: Saving apply/adjudicate RxGRP:SG20 RxBIN:[id number] RxPCN: ID#:[id number]] hydrocodone 5 mg-acetaminophen 325 mg tablet RxNorm: 059459 1 Tablet(s) PO TID as needed for pain for severe pain 04/30/2014 08/09/2014 Inactive hydrocodone 5 mg-acetaminophen 325 mg tablet RxNorm: 609638 1 Tablet(s) PO TID as needed for pain for severe pain 04/17/2014 04/29/2014 Inactive doxycycline hyclate 100 mg capsule RxNorm: 614660 1 Capsule(s) PO BID 03/05/2014 03/04/2014 Inactive doxycycline hyclate 100 mg capsule RxNorm: 935280 1 Capsule(s) PO BID 03/05/2014 03/14/2014 Inactive albuterol sulfate 2.5 mg/3 mL (0.083 %) solution for n ebulization RxNorm: 122742 Milliliter(s) INH USE 1 VIAL IN NEBULIZE R EVERY FOUR HOURS NEEDED FOR WHEEZING OR SHORTNESS OF BREATH 03/02/2014 06/29/2015 Inactive Generic For:*PROVENTIL 0.83 MG/ML SOLUTN 06/13/2013 2:04:46 PM Celexa 40 mg tablet RxNorm: 892360 1 Tablet(s) PO QD 1 Tablet(s) PO QD replaces lexapro. Generic OKAY 01/13/2014 06/09/2014 Inactive Actos 15 mg tablet RxNorm: 336092 1 Tablet(s) PO QAM 01/07/201405/12 Inactive lisinopril 20 mg tablet RxNorm: 174034 1 Tablet(s) PO QD 12/08/2013 0 05/12/2014 Inactive TAKE ONE TABLET BY MOUTH EVERY DAY;Gener ic For:*PRINIVIL 20 MG TABLET cefdinir 300 mg capsule RxNorm: 793756 2 Capsule(s) PO QD 11/10/2013 08/09/2014 Inactive cefdinir 300 mg capsule RxNorm: 231038 2 Capsule(s) PO QD 10/09/2013 10/15/2013 Inactive Actos 15 mg tablet RxNorm: 801464 1 Tablet(s) PO QAM 10/09/201301/06 Inactive doxycycline hyclate 100 mg capsule RxNorm: 9639090 1 Capsule(s) PO Q12H 09/18/2013 09/27/2013 Inactive omeprazole 20 mg capsule,delayed release RxNorm: 007478 2 Capsule(s) PO QD TAKE 2 CAPSULES BY MOUTH DAILY 09/03/2013 03/01/2014 Inactive Generi c For:*PRILOSEC [address] Celexa 40 mg tablet RxNorm: 193272 1 Tablet(s) PO QD re places lexapro. Generic OKAY 09/03/2013 01/13/2014 Inactive Symbicort 160 mcg-4.5 mcg/actuation HFA aerosol inhaler RxNo rm: 6248346 2 Puff(s) INH BID 08/13/2013 03/23/2014 Inactive metformin 1,000 mg tablet RxNorm: 926311 1 Tablet(s) PO BID 013 08/12/2013 Inactive TAKE ONE TABLET BY MOUTH TWI CE DAILY;Generic For:GLUCOPHAGE 1,000 MG TABLET 08/27/12 Thank you Actos 15 mg tablet RxNorm: 983544 1 Tablet(s) PO QAM 06/23/201310/09 Inactive lisinopril 20 mg tablet RxNorm: 848699 1 Tablet(s) PO QD 06/23/2013 0 12/08/2013 Inactive TAKE ONE TABLET BY MOUTH EVERY DAY;Gener ic For:*PRINIVIL 20 MG TABLET albuterol sulfate 2.5 mg/3 mL (0.083 %) solution for n ebulization RxNorm: 091287 Solution for Nebulization INH USE 1 VIAL IN NEBULIZER EVERY FOUR HOURS NEEDED FOR WHEEZING OR SHORTNESS OF BREATH 06/16/2013 03/01/2014 Inactive Generic For:*PROVENTIL 0.83 MG/ML SOLUTN 06/13/2013 2:04:46 PM prednisone 10 mg tablet RxNorm: 533948 1 Tablet(s) PO BID 04/09/2013 04/13/2013 Inactive AndroGel 1.25 gram/actuation (1%) Transdermal Gel Pump RxNorm: 2 02175 TD 04/09/2013 08/09/2014 Inactive APPLY 4 PUMPS OF GEL AT BEDTIME DIRECTED;WC (Appended: Controlled substance eRx refill - RxReferenceNumber: [id number]) azithromycin 250 mg tablet RxNorm: 381672 2 Tablet(s) PO QD 013 04/16/2013 Inactive Amaryl 2 mg tablet RxNorm: 203104 1 Tablet(s) PO BID N eeds appt in 1 month (around March 21) 02/18/2013 08/12/2013 Inactive Amaryl 2 mg tablet RxNorm: 510017 1 Tablet(s) PO BID 02/18/201302/17 Inactive metformin 1,000 mg tablet RxNorm: 759583 1 Tablet(s) PO BID 013 07/27/2013 Inactive TAKE ONE TABLET BY MOUTH TWI CE DAILY;Generic For:GLUCOPHAGE 1,000 MG TABLET 08/27/12 Thank you Actos 15 mg tablet RxNorm: 380479 1 Tablet(s) PO QAM 02/04/201306/03 Inactive albuterol sulfate 2.5 mg/3 mL (0.083 %) Neb Solution RxNorm: 899736 1 Unit Dose INH Q4H prn wheezing or shortness of breath 01/30/2013 06/15/2013 Inac tive Medrol (Gui) 4 mg tablets in a dose pack RxNorm: 396467 Tablet(s) PO as directed 01/20/2013 07/15/2013 Inactive cefdinir 300 mg capsule RxNorm: 155532 1 Capsule(s) PO BID anti biotic 01/20/2013 01/29/2013 Inactive lisinopril 20 mg tablet RxNorm: 442219 Tablet(s) PO 01/13/20132012 Inactive TAKE ONE TABLET BY MOUTH EVERY DAY;Gener ic For:*PRINIVIL 20 MG TABLET citalopram 40 mg tablet RxNorm: 545685 Tablet(s) PO 01/13/20132013 Inactive TAKE ONE (1) TABLET BY MOUTH DAILY;Gener ic For:CELEXA 40 MG TABLET omeprazole 20 mg capsule,delayed release RxNorm: 537658 Capsule(s) PO TAKE 2 CAPSULES BY MOUTH DAILY 11/15/2012 09/03/2013 Inactive Generic For:*PRILOSEC [address] amoxicillin 875 mg tablet RxNorm: 438539 1 Tablet(s) PO BID 013 10/28/2012 Inactive Actos 30 mg tablet RxNorm: 102277 1 Tablet(s) PO QD 09/23/20122011 Inactive Actos 15 mg tablet RxNorm: 420056 1 Tablet(s) PO QAM 09/23/201209/22 Inactive Actos 15 mg tablet RxNorm: 163129 1 Tablet(s) PO QAM 09/23/201202/04 Inactive prednisone 20 mg tablet RxNorm: 880554 1 Tablet(s) PO BID 08/28/2012 09/03/2012 Inactive doxycycline hyclate 100 mg tablet RxNorm: 2774263 1 Tablet(s) PO BI D 08/28/2012 09/06/2012 Inactive metformin 1,000 mg tablet RxNorm: 736067 Tablet(s) PO 08/27/201201/22 Inactive TAKE ONE TABLET BY MOUTH TWICE DAILY;Gen joshua For:GLUCOPHAGE 1,000 MG TABLET 08/27/12 Thank you citalopram 40 mg tablet RxNorm: 683500 Tablet(s) PO 07/30/20122012 Inactive TAKE ONE (1) TABLET BY MOUTH DAILY;Gener ic For:CELEXA 40 MG TABLET lisinopril 20 mg tablet RxNorm: 068260 Tablet(s) PO 07/30/20122012 Inactive TAKE ONE TABLET BY MOUTH EVERY DAY;Gener ic For:*PRINIVIL 20 MG TABLET AndroGel 1.25 gram/actuation (1%) Transdermal Gel Pump RxNor m: [id number] Gel in Metered-Dose Pump TD 07/09/2012 04/08/2013 Inactive APPLY 4 PUM PS OF GEL AT BEDTIME DIRECTED;WC (Appended: Controlled substance eRx refill - RxReferenceNumber: [id number]) citalopram 40 mg tablet RxNorm: 293464 Tablet(s) PO 07/01/20122011 Inactive TAKE ONE (1) TABLET BY MOUTH DAILY;Gener ic For:CELEXA 40 MG TABLET metformin 1,000 mg tablet RxNorm: 409954 1 Tablet(s) PO BID 012 08/25/2012 Inactive TAKE 1 TABLET BY MOUTH TWICE DAILY;Generic For:GLUCOPHAGE 1,000 MG TABLET meclizine 25 mg Tab RxNorm: 765213 1 Tablet(s) PO QID prn dizziness 05/09/2012 05/18/2012 Inactive lisinopril 20 mg tablet RxNorm: 279485 Tablet(s) PO QD 04/22/2012 Inactive TAKE ONE (1) TABLET BY MOUTH DAILY;Gener ic For:*PRINIVIL 20 MG TABLET metformin 1,000 mg tablet RxNorm: 479382 Tablet(s) PO 03/19/201212/2011 Inactive TAKE 1 TABLET BY MOUTH TWICE DAILY;Gener ic For:GLUCOPHAGE 1,000 MG TABLET cefdinir 300 mg Cap RxNorm: 591443 1 Capsule(s) PO BID 11/28/2011 Inactive cefdinir 300 mg Cap RxNorm: 361669 1 Capsule(s) PO BID 11/01/2011 Inactive citalopram 40 mg tablet RxNorm: 017756 Tablet(s) PO 10/30/20112011 Inactive TAKE ONE (1) TABLET BY MOUTH DAILY;Gener ic For:CELEXA 40 MG TABLET cefdinir 300 mg Cap RxNorm: 886007 1 Capsule(s) PO BID 10/02/2011 Inactive metformin 1,000 mg Tab RxNorm: 619507 1 Tablet(s) PO BID 09/28/2011 0 01/25/2012 Inactive citalopram 40 mg Tab RxNorm: 628939 1 Tablet(s) PO QD 09/28/2011 020 11/2011 Inactive omeprazole 20 mg capsule,delayed release RxNorm: 122871 2 Capsu le(s) PO QD 09/28/2011 03/25/2012 Inactive lisinopril 20 mg Tab RxNorm: 951793 Tablet(s) PO 08/21/2011 04/21/2012 Inactive TAKE ONE (1) TABLET BY MOUTH DAILY;Generic For:*PRINIVIL 20 MG TABLET AndroGel 1.25 gram/actuation (1%) Transdermal Gel Pump RxNor m: [id number] Gel in Metered-dose Pump TD 08/21/2011 07/09/2012 Inactive APPLY 4 PUM PS OF GEL AT BEDTIME DIRECTED (Appended: Controlled substance eRx refill - RxReferenceNumber: [id number]) Lantus Solostar 100 unit/mL (3 mL) Sub-Q Insulin Pen RxNorm: 319414 30 Unit(s) SQ QD 06/20/2011 05/08/2012 Inactive Lantus Solostar 100 unit/mL (3 mL) Sub-Q Insulin Pen RxNorm: 566197 30 Unit(s) SQ QD 06/19/2011 06/19/2011 Inactive metformin 1,000 mg Tab RxNorm: 890996 1 Tablet(s) PO BID 05/12/2011 1 11/09/2010 Inactive citalopram 40 mg Tab RxNorm: 202767 1 Tablet(s) PO QD 03/06/2011 12/0 05/2011 Inactive metformin 1,000 mg Tab RxNorm: 359567 1 Tablet(s) PO BID 12/27/2010 0 04/25/2011 Inactive lisinopril 20 mg Tab RxNorm: 870783 Tablet(s) PO TAKE 1 TABLET BY MOUTH EVERY DAY;Generic For:*PRINIVIL 20 MG TABLET 12/26/2010 08/20/2011 Inactive Ceftin 500 mg Tab RxNorm: 365729 1 Tablet(s) PO BID 12/19/20102010 Inactive omeprazole 20 mg Cap, Delayed Release RxNorm: 804359 2 Capsule( s) PO QD 09/13/2010 03/11/2011 Inactive Byetta 10 mcg/0.04 mL per dose Sub-Q Pen Injector RxNorm: 84 7913 1 Unit Dose SQ BID 09/07/2010 10/06/2010 Inactive Celexa 40 mg tablet RxNorm: 689761 1 Tablet(s) PO QD re places lexapro. Generic OKAY 08/09/2010 02/04/2011 Inactive Actos 30 mg Tab RxNorm: 323586 1 Tablet(s) PO QD 08/09/2010 04/02/2011 Inactive lisinopril 20 mg Tab RxNorm: 610429 1 Tablet(s) PO QD 08/09/201011/22 Inactive metformin 1,000 mg Tab RxNorm: 883579 1 Tablet(s) PO BID 08/09/2010 0 12/06/2010 Inactive Metformin 1,000 mg Tab RxNorm: 067411 1 Tablet(s) PO BID 04/26/2010 0 04/25/2010 Inactive metformin 1,000 mg Tab RxNorm: 652175 1 Tablet(s) PO BID 04/26/2010 1 Inactive Lomotil 2.5 mg-0.025 mg Tab RxNorm: 9471965 1 Tablet(s) PO TID 1-2 TABS THREE TIMES DAILY 04/05/2010 04/07/2010 Inactive Mupirocin 2 % Topical Cream RxNorm: 547653 TOP BID 04/05/201003/25 Inactive lisinopril 20 mg Tab RxNorm: 762673 1 Tablet(s) PO QD 03/29/201010/2009 Inactive Actos 30 mg Tab RxNorm: 500643 1 Tablet(s) PO QD 03/29/2010 07/26/2010 Inactive Lisinopril 20 mg Tab RxNorm: 619650 1 Tablet(s) PO QD 02/27/201001/2010 Inactive Actos 30 mg Tab RxNorm: 107068 1 Tablet(s) PO QD 02/14/2010 03/28/2010 Inactive Celexa 40 mg Tab RxNorm: 777245 1 Tablet(s) PO QD replaces lexapro 01/13/2010 07/11/2010 Inactive Cyclobenzaprine 10 mg Tab RxNorm: 977657 1 Tablet(s) PO TID prn spasm 12/23/2009 01/21/2010 Inactive Cyclobenzaprine 10 mg Tab RxNorm: 566272 1 Tablet(s) PO TID 010 12/22/2009 Inactive Hydrocodone-Acetaminophen 7.5 mg-750 mg Tab RxNorm: 257959 1 Ta blet(s) PO Q4-6H 12/23/2009 12/22/2009 Inactive aspirin 81 mg tablet RxNorm: 268856 1 Tablet(s) PO QD No Start Date Active isosorbide mononitrate ER 60 mg tablet,extended release 24 h r RxNorm: 477536 1 Tablet(s) PO QD No Start Date Active amlodipine 5 mg tablet RxNorm: 422256 1 Tablet(s) PO QD No Start Date Active Vitamin D3 1,000 unit tablet RxNorm: 298520 3 Tablet(s) PO QD No St art Date 10/26/2014 Inactive Lexapro 20 mg Tab RxNorm: 409726 1 Tablet(s) PO QD No Start Date 12/24 Inactive loperamide 2 mg tablet RxNorm: 176932 Tablet(s) PO PRN No Start Date 06/07/2016 Inactive Levemir FlexTouch U-100 Insulin 100 unit/mL (3 mL) sub cutaneous pen RxNorm: 296884 22 Unit(s) SQ QD No Start Date 12/21/2019 Inactive Janumet 50 mg-1,000 mg Tab RxNorm: 581146 1 Tablet(s) PO BID No Sta rt Date 01/12/2010 Inactive Levemir U-100 Insulin 100 unit/mL subcutaneous solution RxNo rm: 963578 10 Unit(s) SQ QHS No Start Date 12/08/2018 Inactive Medrol (Gui) 4 mg tablets in a dose pack RxNorm: 191786 Tablet(s) PO Use as directed No Start Date 12/22/2018 Inactive aspirin 325 mg tablet RxNorm: 731829 1 Tablet(s) PO QD No Start Date 08/09/2016 Inactive Efudex 5 % Topical Cream RxNorm: 842388 Application TOP QD prn fto skin lesion No Start Date 08/12/2013 Inactive nitroglycerin 0.4 mg sublingual tablet RxNorm: 734527 Tablet(s) SL as needed No Start Date 12/18/2018 Inactive levofloxacin 500 mg tablet RxNorm: 279039 1 Tablet(s) PO QD No Star t Date 08/06/2018 Inactive ferrous sulfate 325 mg (65 mg iron) tablet RxNorm: 543763 1 Tab let(s) PO QHS No Start Date 04/16/2017 Inactive fluorouracil 5 % topical cream RxNorm: 337286 1 TOP No Start James e 08/06/2018 Inactive Vitamin D3 1,000 unit capsule RxNorm: 961398 1 Capsule(s) PO QD No Start Date 02/03/2018 Inactive Hydrocodone-Acetaminophen 7.5 mg-750 mg Tab RxNorm: 318746 1 Ta blet(s) PO PRN No Start Date 08/09/2014 Inactive pantoprazole 40 mg tablet,delayed release RxNorm: 269784 1 Tabl et(s) PO QD No Start Date 01/22/2018 Inactive omeprazole 20 mg Cap, Delayed Release RxNorm: 567054 2 Capsule( s) PO QD No Start Date 09/12/2010 Inactive DuoNeb 0.5 mg-3 mg(2.5 mg base)/3 mL solution for nebulizati on RxNorm: 5534383 INH Q4H as needed No Start Date 10/22/2018 Inactive Lyrica 75 mg capsule RxNorm: 970062 2 Capsule(s) PO QHS No Start Da te 03/09/2019 Inactive isosorbide mononitrate ER 30 mg tablet,extended release 24 h r RxNorm: 233454 1 Tablet(s) PO QD No Start Date 12/08/2018 Inactive Tradjenta 5 mg tablet RxNorm: 9188839 1 Tablet(s) PO QD No Start Da te 08/09/2016 Inactive Tudorza Pressair 400 mcg/actuation breath activated RxNorm: 4485502 1 Puff(s) INH BID No Start Date 06/17/2017 Inactive Lantus Solostar 100 unit/mL (3 mL) Sub-Q Insulin Pen RxNorm: 647328 30 Unit(s) SQ QD No Start Date 06/18/2011 Inactive Requip 4 mg tablet RxNorm: 662310 1 Tablet(s) PO BID No Start Date Inactive Symbicort 160 mcg-4.5 mcg/actuation HFA aerosol inhaler RxNo rm: 7994782 2 Puff(s) INH BID No Start Date 07/11/2018 Inactive atorvastatin 40 mg tablet RxNorm: 065728 1 Tablet(s) PO QD No Start Date 12/18/2018 Inactive tramadol 50 mg tablet RxNorm: 465561 1 Tablet(s) PO TID as needed for pain (take alone with two extra strength tylenol) No Start Date 01/16/2019 Inactive Symbicort 160 mcg-4.5 mcg/actuation HFA aerosol inhaler RxNo rm: 2501771 2 Puff(s) INH BID No Start Date 08/12/2013 Inactive Vitamin D3 5,000 unit tablet RxNorm: 204744 1 Tablet(s) PO QD No St art Date 05/08/2019 Inactive albuterol sulfate 2.5 mg/3 mL (0.083 %) Neb Solution RxNorm: 990873 1 Unit Dose INH Q4H prn wheezing or shortness of breath No Start Date 01/29/2013 Inac tive Ranexa 500 mg tablet,extended release RxNorm: 679177 1 Tablet(s ) PO BID No Start Date 02/03/2018 Inactive Advair Diskus 500 mcg-50 mcg/dose powder for inhalation RxNo rm: 6233902 1 Puff(s) INH BID No Start Date 08/09/2016 Inactive clopidogrel 75 mg tablet RxNorm: 466102 1 Tablet(s) PO QD No Start Date 05/01/2018 Inactive metformin 1,000 mg Tab RxNorm: 624799 1 Tablet(s) PO BID No Start D ate 08/12/2013 Inactive Silenor 3 mg tablet RxNorm: 476939 1 Tablet(s) PO QHS No Start Date 0 04/04/2017 Inactive Medrol (Gui) 4 mg tablets in a dose pack RxNorm: 123691 Tablet(s) PO as directed No Start Date 01/19/2013 Inactive Requip 4 mg tablet RxNorm: 403376 1 Tablet(s) PO BID No Start Date Inactive clopidogrel 75 mg tablet RxNorm: 384309 1 Tablet(s) PO QD No Start Date 02/03/2018 Inactive Tradjenta 5 mg tablet RxNorm: 3351611 1 Tablet(s) PO QD No Start Da te 02/03/2018 Inactive ProAir HFA 90 mcg/Actuation Aerosol Inhaler RxNorm: 099109 2 Pu ff(s) INH PRN No Start Date 07/09/2012 Inactive Tessalon Perles 100 mg capsule RxNorm: 031501 1 Capsule (s) PO TID as needed for cough No Start Date 08/30/2014 Inactive ferrous sulfate 325 mg (65 mg iron) tablet RxNorm: 692211 1 Tab let(s) PO QD No Start Date 05/08/2019 Inactive pioglitazone 15 mg tablet RxNorm: 978413 1 Tablet(s) PO QD No Start Date 09/20/2014 Inactive Lexapro Oral RxNorm: Oral No Start Date 12/13/2009 Inactive Breo Ellipta 100 mcg-25 mcg/dose powder for inhalation RxNor m: 8205139 1 Puff(s) INH BID No Start Date 05/31/2015 Inactive Tylenol Extra Strength 500 mg tablet RxNorm: 332492 2 T ablet(s) PO QHS along with ropironole No Start Date 12/18/2018 Inactive tramadol 50 mg tablet RxNorm: 129972 1 Tablet(s) PO QID as need ed for pain No Start Date 12/24/2018 Inactive cyclobenzaprine 10 mg Tab RxNorm: 386057 Oral No Start Date 12/22 Inactive Levemir FlexTouch 100 unit/mL (3 mL) subcutaneous insulin pe n RxNorm: 628791 10 Unit(s) SQ QD No Start Date 03/08/2016 Inactive amlodipine 5 mg tablet RxNorm: 926493 1 Tablet(s) PO QD No Start Da te 08/09/2016 Inactive Novolog 100 unit/mL subcutaneous solution RxNorm: 676993 10 Uni t(s) SQ AC No Start Date 08/12/2017 Inactive Levemir FlexTouch 100 unit/mL (3 mL) subcutaneous insulin pe n RxNorm: 262791 25 Unit(s) SQ QPM No Start Date 08/06/2018 Inactive Farxiga 5 mg tablet RxNorm: 9327858 1 Tablet(s) PO QD No Start Date 0 10/05/2014 Inactive DuoNeb 0.5 mg-3 mg(2.5 mg base)/3 mL solution for nebulizati on RxNorm: 1455986 inhalation No Start Date 09/23/2014 Inactive Doxycycline 100 mg Cap RxNorm: 088668 1 Capsule(s) PO BID No Start Date 12/18/2010 Inactive Vitamin B12 1000mcg Tablet RxNorm: 1 Tablet(s) PO QD No Start Date 02/03/2018 Inactive Hydrocodone-Acetaminophen 7.5 mg-750 mg Tab RxNorm: 228007 1 Ta blet(s) PO Q6-8H No Start Date 12/22/2009 Inactive Xigduo XR 5 mg-1,000 mg tablet,extended release RxNorm: 1593 833 1 Tablet(s) PO QD No Start Date 05/31/2015 Inactive cyanocobalamin (vit B-12) 1,000 mcg/mL injection solution Rx Norm: 568618 1 injection weekly for 4 weeks 1 Milliliter(s) Inj No Start Date 05/08/2019 Inactive AndroGel 1.25 g/Actuation (1%) Transdermal Gel Pump RxNorm: 7654886 TD Apply 4pumps daily No Start Date 08/21/2011 Inactive Actoplus MET 15 mg-850 mg Tab RxNorm: 135584 1 Tablet(s) PO BID No Start Date 12/18/2010 Inactive Amaryl 2 mg tablet RxNorm: 399222 1 Tablet(s) PO BID No Start Date Inactive Levemir FlexTouch 100 unit/mL (3 mL) subcutaneous insulin pe n RxNorm: 708136 20 Unit(s) SQ QD No Start Date 06/12/2016 Inactive Symbicort 160 mcg-4.5 mcg/actuation HFA aerosol inhaler RxNo rm: 1456398 2 Puff(s) INH BID No Start Date 02/03/2018 Inactive Symbicort 160 mcg-4.5 mcg/Actuation Inhalation HFA Aer osol Inhaler RxNorm: 1263247 2 INH BID No Start Date 12/18/2010 Inactive Farxiga 5 mg tablet RxNorm: 2323543 1 Tablet(s) PO QD No Start Date 0 03/01/2015 Inactive magnesium oxide 400 mg (241.3 mg magnesium) tablet RxNorm: 1 54479 1 Tablet(s) PO QHS No Start Date 05/08/2019 Inactive Tradjenta 5 mg tablet RxNorm: 4172774 2 Tablet(s) PO QD No Start Da te 07/21/2015 Inactive Levemir FlexTouch U-100 Insulin 100 unit/mL (3 mL) sub cutaneous pen RxNorm: 846680 40 Unit(s) SQ QD No Start Date 08/06/2018 Inactive Sinemet CR 50 mg-200 mg tablet,extended release RxNorm: 8343 41 1 Tablet(s) PO QHS No Start Date 09/24/2017 Inactive metoprolol tartrate 25 mg tablet RxNorm: 976177 1/2 Tablet(s) P O BID No Start Date 02/03/2018 Inactive Requip 4 mg tablet RxNorm: 325527 1 Tablet(s) PO QHS No Start Date Inactive Ventolin HFA 90 mcg/actuation aerosol inhaler RxNorm: 257672 2 Puff(s) INH Q4H as needed No Start Date 04/22/2018 Inactive B12 5,000 mcg-100 mcg sublingual lozenge RxNorm: 556223 IM as d irected No Start Date 05/08/2019 Inactive ropinirole 1 mg tablet RxNorm: 068506 1 Tablet(s) PO QHS No Start D ate 08/06/2018 Inactive Percocet 5 mg-325 mg tablet RxNorm: 5256311 1 Tablet(s) PO Q4H as needed for pain (Dr Rizzo) No Start Date 10/22/2018 Inactive hydrocodone 5 mg-acetaminophen 325 mg tablet RxNorm: 999967 1 Tablet(s) PO TID as needed for pain for severe pain No Start Date 04/16/2014 Inactive scopolamine 1.5 mg 72 hr Transderm Patch RxNorm: 120656 Application TD Q72H for dizziness No Start Date 08/12/2013 Inactive ipratropium-albuterol 0.5 mg-3 mg(2.5 mg base)/3 mL ne bulization soln RxNorm: 8466205 1 Unit Dose INH Q4H No Start Date 01/16/2019 Inactive Medication Administered No Medication Administered data Immunizations Vaccine Codes Date Status Influenza CVX: 135 08/07/2019 Complete Pneumococcal CVX: 33 07/24/2017 Complete Influenza CVX: 135 06/13/2016 Complete Pneumococcal CVX: 133 06/13/2016 Complete Influenza CVX: 141 07/10/2012 Pneumovax Unknown 07/10/2012 Results Observation Observation Code Item Item Code Result Date S ervice Location COMPLETE BLOOD COUNT [id number] WBC 5.5 10e9/L 06/17/20 19 Unknown COMPLETE BLOOD COUNT [id number] RBC 3.92 10e12/L 2018 Unknown COMPLETE BLOOD COUNT [id number] HEMOGLOBIN 10.9 g/dL 06/17/20 19 Unknown COMPLETE BLOOD COUNT 8679461 HEMATOCRIT 34.8 % 06/17/20 19 Unknown COMPLETE BLOOD COUNT [id number] MCV 88.8 fL 9 Unknown COMPLETE BLOOD COUNT 5780146 MCH 27.8 pg 9 Unknown COMPLETE BLOOD COUNT 2263482 MCHC 31.3 g/dL 9 Unknown COMPLETE BLOOD COUNT 7863767 PLATELET COUNT 239 10e9/L Unknown COMPLETE BLOOD COUNT 4165764 Mean Plt Volume 10.0 fL Unknown COMPLETE BLOOD COUNT 0170399 Neut Auto 68.0 % 9 Unknown COMPLETE BLOOD COUNT 4669790 Lymph Auto 14.8 % 06/17/20 19 Unknown COMPLETE BLOOD COUNT 8626985 Blaine Auto 13.1 % 9 Unknown COMPLETE BLOOD COUNT 1789445 RDW 14.7 % 9 Unknown COMPLETE BLOOD COUNT 5382332 Eos Auto 3.6 % 9 Unknown COMPLETE BLOOD COUNT 1463098 Baso Auto 0.5 % 9 Unknown COMPLETE BLOOD COUNT 3627421 Neutrophil Abs 3.74 10e9/L Unknown COMPLETE BLOOD COUNT 4599938 Lymphocyte Abs 0.81 10e9/L Unknown COMPLETE BLOOD COUNT 1689223 Monocyte Abs 0.72 10e9/L 05/26 Unknown COMPLETE BLOOD COUNT 0676415 Eosinophil Abs 0.20 10e9/L Unknown COMPLETE BLOOD COUNT 6356080 Basophil Abs 0.03 10e9/L 05/26 Unknown COMPLETE BLOOD COUNT 5461169 RDW-SD 46.4 fL 9 Unknown IRON 25721 Iron 36 ug/dL 06/17/2019 Unknown VITAMIN B 12 48370 VITAMIN B12 540 pg/mL 06/17/2019 Unkn own GFR CALC 7454866 GFR Non Afr Amr 59 mL/min 06/17/2019 Unk nown GFR CALC 4852514 GFR Afr Amr >60 mL/min 06/17/2019 Unknow n ERYTHROCYTE SEDIMENTATION RATE 49439 Sed Rate 34 mm/hr 06/17/2019 Unknown THYROID STIMULATING HORMONE 94187 TSH 2.217 uIU/mL 06/17/2019 Unknown COMPREHENSIVE METABOLIC 17826 AST 12 U/L 2018 Unknown COMPREHENSIVE METABOLIC 56494 ALT 11 U/L 2018 Unknown COMPREHENSIVE METABOLIC 24205 BUN 17 mg/dL 2018 Unknown COMPREHENSIVE METABOLIC 67491 ALBUMIN 3.9 g/dL 2018 Unknown COMPREHENSIVE METABOLIC 73624 CHLORIDE 103 mmol/L 06/17 Unknown COMPREHENSIVE METABOLIC 30607 Bili Total 0.4 mg/dL 06/17 Unknown COMPREHENSIVE METABOLIC 09777 ALK PHOS 51 U/L 2018 Unknown COMPREHENSIVE METABOLIC 78829 SODIUM 140 mmol/L 06/17 Unknown COMPREHENSIVE METABOLIC 58394 CREATININE 1.20 mg/dL 05/26 Unknown COMPREHENSIVE METABOLIC 22521 CALCIUM 8.9 mg/dL 2018 Unknown COMPREHENSIVE METABOLIC 19527 POTASSIUM 4.5 mmol/L 06/17 Unknown COMPREHENSIVE METABOLIC 78850 Total Protein 6.1 g/dL Unknown COMPREHENSIVE METABOLIC 92437 Glucose 108 mg/dL 2018 Unknown COMPREHENSIVE METABOLIC 10099 Bicarbonate 27 mmol/L 05/26 Unknown COMPREHENSIVE METABOLIC 67818 AGAP 10 mmol/L 2018 Unknown FERRITIN 34288 FERRITIN 35.5 ng/mL 05/08/2019 Unknown VITAMIN D TOTAL (25 HYDROXY) 18747 Vitamin D 25 OH 26.0 ng/mL 05/08/2019 Unknown GLYCOSYLATED HEMOGLOBIN TEST 91659 Hgb A1c 09901-0 8.2 % 0 05/08/2019 Unknown MEAN GLUC 5213202 Calc Mean Gluc 189 mg/dL 05/08/2019 Unkn own GFR CALC 0718801 GFR Non Afr Amr >60 mL/min 05/08/2019 Un known GFR CALC 6969675 GFR Afr Amr >60 mL/min 05/08/2019 Unknow n VITAMIN B 12 86904 VITAMIN B12 197 pg/mL 05/08/2019 Unkn own IRON 59768 Iron 34 ug/dL 05/08/2019 Unknown COMPLETE BLOOD COUNT 4974913 WBC 6.9 10e9/L 05/08/20 19 Unknown COMPLETE BLOOD COUNT [id number] RBC 3.95 10e12/L 2018 Unknown COMPLETE BLOOD COUNT 4203487 HEMOGLOBIN 11.1 g/dL 05/08/20 19 Unknown COMPLETE BLOOD COUNT 0233096 HEMATOCRIT 34.9 % 05/08/20 19 Unknown COMPLETE BLOOD COUNT 4665178 MCV 88.4 fL 9 Unknown COMPLETE BLOOD COUNT 4331881 MCH 28.1 pg 9 Unknown COMPLETE BLOOD COUNT 5395177 MCHC 31.8 g/dL 9 Unknown COMPLETE BLOOD COUNT 0121142 PLATELET COUNT 217 10e9/L Unknown COMPLETE BLOOD COUNT 7787159 Mean Plt Volume 9.6 fL Unknown COMPLETE BLOOD COUNT 1603984 Neut Auto 77.6 % 9 Unknown COMPLETE BLOOD COUNT 7306246 Lymph Auto 10.7 % 05/08/20 19 Unknown COMPLETE BLOOD COUNT 9171557 Blaine Auto 10.4 % 9 Unknown COMPLETE BLOOD COUNT 0240316 Eos Auto 1.2 % 9 Unknown COMPLETE BLOOD COUNT 7534235 RDW 14.7 % 9 Unknown COMPLETE BLOOD COUNT 9046713 Baso Auto 0.1 % 9 Unknown COMPLETE BLOOD COUNT 8487110 Neutrophil Abs 5.35 10e9/L Unknown COMPLETE BLOOD COUNT 5323175 Lymphocyte Abs 0.74 10e9/L Unknown COMPLETE BLOOD COUNT 8310979 Monocyte Abs 0.72 10e9/L 04/24 Unknown COMPLETE BLOOD COUNT 5183307 Eosinophil Abs 0.08 10e9/L Unknown COMPLETE BLOOD COUNT 7698379 Basophil Abs 0.01 10e9/L 04/24 Unknown COMPLETE BLOOD COUNT 4285821 RDW-SD 46.6 fL 9 Unknown COMPREHENSIVE METABOLIC 48431 AST 13 U/L 2018 Unknown COMPREHENSIVE METABOLIC 21188 ALT 9 U/L 2018 Unknown COMPREHENSIVE METABOLIC 56899 BUN 18 mg/dL 2018 Unknown COMPREHENSIVE METABOLIC 55531 ALBUMIN 4.3 g/dL 2018 Unknown COMPREHENSIVE METABOLIC 09978 CHLORIDE 99 mmol/L 2018 Unknown COMPREHENSIVE METABOLIC 36825 Bili Total 0.4 mg/dL 05/08 Unknown COMPREHENSIVE METABOLIC 24202 ALK PHOS 48 U/L 2018 Unknown COMPREHENSIVE METABOLIC 92309 SODIUM 137 mmol/L 05/08 Unknown COMPREHENSIVE METABOLIC 79463 CREATININE 0.79 mg/dL 04/24 Unknown COMPREHENSIVE METABOLIC 94220 CALCIUM 9.5 mg/dL 2018 Unknown COMPREHENSIVE METABOLIC 53655 POTASSIUM 4.0 mmol/L 05/08 Unknown COMPREHENSIVE METABOLIC 81809 Total Protein 6.3 g/dL Unknown COMPREHENSIVE METABOLIC 92673 Glucose 232 mg/dL 2018 Unknown COMPREHENSIVE METABOLIC 32681 Bicarbonate 27 mmol/L 04/24 Unknown COMPREHENSIVE METABOLIC 38389 AGAP 11 mmol/L 2018 Unknown GLYCOSYLATED HEMOGLOBIN TEST 99181 Hgb A1c 79475-0 8.9 % 0 12/10/2018 Unknown MEAN GLUC 0667566 Calc Mean Gluc 209 mg/dL 12/10/2018 Unkn own LIPID GROUP 91825 Cholesterol 145 mg/dL 12/09/2018 Unkno wn LIPID GROUP 98407 Triglyceride 235 mg/dL 12/09/2018 Unkn own LIPID GROUP 26051 HDL CHOLESTEROL 40 mg/dL 12/09/2018 U nknown LIPID GROUP 77441 Chol/HDL Ratio 3.62 ratio 12/09/2018 U nknown LIPID GROUP 42993 NON-HDL Chol 105 mg/dL 12/09/2018 Unkn own LIPID GROUP 54588 LDL Cholesterol 58 mg/dL 12/09/2018 U nknown THYROID STIMULATING HORMONE 75542 TSH 1.071 uIU/mL 12/09/2018 Unknown GFR CALC 3179347 GFR Non Afr Amr >60 mL/min 12/09/2018 Un known GFR CALC 9773910 GFR Afr Amr >60 mL/min 12/09/2018 Unknow n COMPLETE BLOOD COUNT 8333933 WBC 7.6 10e9/L 12/10/19 19 Unknown COMPLETE BLOOD COUNT 3246052 RBC 3.97 10e12/L 2018 Unknown COMPLETE BLOOD COUNT 5423223 HEMOGLOBIN 11.4 g/dL 12/10/19 19 Unknown COMPLETE BLOOD COUNT 8472633 HEMATOCRIT 35.8 % 12/10/19 19 Unknown COMPLETE BLOOD COUNT 3839274 MCV 90.2 fL 9 Unknown COMPLETE BLOOD COUNT 0297984 MCH 28.7 pg 9 Unknown COMPLETE BLOOD COUNT 7895876 MCHC 31.8 g/dL 9 Unknown COMPLETE BLOOD COUNT 5255011 PLATELET COUNT 200 10e9/L Unknown COMPLETE BLOOD COUNT 7127165 Mean Plt Volume 10.1 fL Unknown COMPLETE BLOOD COUNT 5919579 Neut Auto 79.0 % 9 Unknown COMPLETE BLOOD COUNT 4929245 Lymph Auto 8.3 % 12/10/19 19 Unknown COMPLETE BLOOD COUNT 3827825 Blaine Auto 10.8 % 9 Unknown COMPLETE BLOOD COUNT 9921888 Eos Auto 1.5 % 9 Unknown COMPLETE BLOOD COUNT 9640524 RDW 14.6 % 9 Unknown COMPLETE BLOOD COUNT 0322057 Baso Auto 0.4 % 9 Unknown COMPLETE BLOOD COUNT 5766696 Neutrophil Abs 6.00 10e9/L Unknown COMPLETE BLOOD COUNT 7820501 Lymphocyte Abs 0.63 10e9/L Unknown COMPLETE BLOOD COUNT 9545645 Monocyte Abs 0.82 10e9/L 11/22 Unknown COMPLETE BLOOD COUNT 2808834 Eosinophil Abs 0.11 10e9/L Unknown COMPLETE BLOOD COUNT 5153147 RDW-SD 46.9 fL 9 Unknown COMPLETE BLOOD COUNT 7355659 Basophil Abs 0.03 10e9/L 11/22 Unknown COMPREHENSIVE METABOLIC 11872 AST 11 U/L 2018 Unknown COMPREHENSIVE METABOLIC 17785 ALT 11 U/L 2018 Unknown COMPREHENSIVE METABOLIC 71107 BUN 21 mg/dL 2018 Unknown COMPREHENSIVE METABOLIC 05840 ALBUMIN 4.7 g/dL 2018 Unknown COMPREHENSIVE METABOLIC 58314 CHLORIDE 99 mmol/L 2018 Unknown COMPREHENSIVE METABOLIC 49754 Bili Total 0.4 mg/dL 12/09 Unknown COMPREHENSIVE METABOLIC 64254 ALK PHOS 73 U/L 2018 Unknown COMPREHENSIVE METABOLIC 43319 SODIUM 137 mmol/L 12/09 Unknown COMPREHENSIVE METABOLIC 65635 CREATININE 1.12 mg/dL 11/22 Unknown COMPREHENSIVE METABOLIC 59496 CALCIUM 9.4 mg/dL 2018 Unknown COMPREHENSIVE METABOLIC 60892 POTASSIUM 4.2 mmol/L 12/09 Unknown COMPREHENSIVE METABOLIC 12699 Total Protein 6.8 g/dL Unknown COMPREHENSIVE METABOLIC 04121 Glucose 194 mg/dL 2018 Unknown COMPREHENSIVE METABOLIC 80375 Bicarbonate 30 mmol/L 11/22 Unknown COMPREHENSIVE METABOLIC 23563 AGAP 8 mmol/L 2018 Unknown FREE T4 26104 T4 Free 0.86 ng/dL 12/09/2018 Unknown COMPLETE BLOOD COUNT 7683106 WBC 6.8 10e9/L 04/17/20 17 Unknown COMPLETE BLOOD COUNT 2948892 RBC 3.86 10e12/L 2016 Unknown COMPLETE BLOOD COUNT 8753109 HEMOGLOBIN 9.8 g/dL 04/17/20 17 Unknown COMPLETE BLOOD COUNT 8106697 HEMATOCRIT 31.1 % 04/17/20 17 Unknown COMPLETE BLOOD COUNT 6112319 MCV 80.6 fL 7 Unknown COMPLETE BLOOD COUNT 4802301 MCH 25.4 pg 7 Unknown COMPLETE BLOOD COUNT 8502990 MCHC 31.5 g/dL 7 Unknown COMPLETE BLOOD COUNT 3678454 PLATELET COUNT 247 10e9/L Unknown COMPLETE BLOOD COUNT 9947849 Mean Plt Volume 9.7 fL Unknown COMPLETE BLOOD COUNT 1956821 Neut Auto 74.1 % 7 Unknown COMPLETE BLOOD COUNT 3433399 Lymph Auto 12.0 % 04/17/20 17 Unknown COMPLETE BLOOD COUNT 0083809 Blaine Auto 10.8 % 7 Unknown COMPLETE BLOOD COUNT 6915979 Eos Auto 2.5 % 7 Unknown COMPLETE BLOOD COUNT 6896799 RDW 15.9 % 7 Unknown COMPLETE BLOOD COUNT 3877842 Baso Auto 0.6 % 7 Unknown COMPLETE BLOOD COUNT 1835864 Neutrophil Abs 5.04 10e9/L Unknown COMPLETE BLOOD COUNT 9592972 Lymphocyte Abs 0.82 10e9/L Unknown COMPLETE BLOOD COUNT 2624103 Monocyte Abs 0.73 10e9/L 03/25 Unknown COMPLETE BLOOD COUNT 0652508 Eosinophil Abs 0.17 10e9/L Unknown COMPLETE BLOOD COUNT 4576513 RDW-SD 44.4 fL 7 Unknown COMPLETE BLOOD COUNT 9796263 Basophil Abs 0.04 10e9/L 03/25 Unknown MEAN GLUC 1679783 Calc Mean Gluc 223 mg/dL 04/17/2017 Unkn own GFR CALC 0289868 GFR Non Afr Amr >60 mL/min 04/17/2017 Un known GFR CALC 6993225 GFR Afr Amr >60 mL/min 04/17/2017 Unknow n GLYCOSYLATED HEMOGLOBIN TEST 13337 Hgb A1c 26519-9 9.4 % 0 04/17/2017 Unknown IRON 05180 Iron 37 ug/dL 04/17/2017 Unknown VITAMIN B 12 68177 VITAMIN B12 280 pg/mL 04/17/2017 Unkn own THYROID STIMULATING HORMONE 24471 TSH 2.481 uIU/mL 04/17/2017 Unknown COMPREHENSIVE METABOLIC 09669 AST 13 U/L 2016 Unknown COMPREHENSIVE METABOLIC 18986 ALT 12 U/L 2016 Unknown COMPREHENSIVE METABOLIC 70384 BUN 18 mg/dL 2016 Unknown COMPREHENSIVE METABOLIC 43032 ALBUMIN 4.7 g/dL 2016 Unknown COMPREHENSIVE METABOLIC 03491 CHLORIDE 103 mmol/L 04/17 Unknown COMPREHENSIVE METABOLIC 44222 Bili Total 0.4 mg/dL 04/17 Unknown COMPREHENSIVE METABOLIC 07361 ALK PHOS 49 U/L 2016 Unknown COMPREHENSIVE METABOLIC 34821 SODIUM 140 mmol/L 04/17 Unknown COMPREHENSIVE METABOLIC 92795 CREATININE 1.14 mg/dL 03/25 Unknown COMPREHENSIVE METABOLIC 89063 CALCIUM 9.4 mg/dL 2016 Unknown COMPREHENSIVE METABOLIC 01255 POTASSIUM 4.4 mmol/L 04/17 Unknown COMPREHENSIVE METABOLIC 11164 Total Protein 6.7 g/dL Unknown COMPREHENSIVE METABOLIC 12212 Glucose 266 mg/dL 2016 Unknown COMPREHENSIVE METABOLIC 91011 Bicarbonate 25 mmol/L 03/25 Unknown COMPREHENSIVE METABOLIC 94603 AGAP 12 mmol/L 2016 Unknown FERRITIN 52563 FERRITIN 10.0 ng/mL 04/17/2017 Unknown COMPLETE BLOOD COUNT 3890061 WBC 6.8 10e9/L 12/22/19 17 Unknown COMPLETE BLOOD COUNT 6961444 RBC 3.70 10e12/L 2016 Unknown COMPLETE BLOOD COUNT 2099124 HEMOGLOBIN 8.0 g/dL 12/22/19 17 Unknown COMPLETE BLOOD COUNT 5605360 HEMATOCRIT 26.7 % 12/22/19 17 Unknown COMPLETE BLOOD COUNT 3661683 MCV 72.2 fL 7 Unknown COMPLETE BLOOD COUNT 2100189 MCH 21.6 pg 7 Unknown COMPLETE BLOOD COUNT 8248616 MCHC 30.0 g/dL 7 Unknown COMPLETE BLOOD COUNT 0863710 PLATELET COUNT 290 10e9/L Unknown COMPLETE BLOOD COUNT 4632528 Mean Plt Volume 9.3 fL Unknown COMPLETE BLOOD COUNT 9945637 Neut Auto 80.2 % 7 Unknown COMPLETE BLOOD COUNT 8513482 Lymph Auto 9.8 % 12/22/19 17 Unknown COMPLETE BLOOD COUNT 6420119 Blaine Auto 8.1 % 7 Unknown COMPLETE BLOOD COUNT 2275896 RDW 17.4 % 7 Unknown COMPLETE BLOOD COUNT 4650847 Eos Auto 1.5 % 7 Unknown COMPLETE BLOOD COUNT 5208148 Baso Auto 0.4 % 7 Unknown COMPLETE BLOOD COUNT 0763663 Neutrophil Abs 5.45 10e9/L Unknown COMPLETE BLOOD COUNT 6737378 Lymphocyte Abs 0.67 10e9/L Unknown COMPLETE BLOOD COUNT 2852236 Monocyte Abs 0.55 10e9/L 11/24 Unknown COMPLETE BLOOD COUNT 1238303 Eosinophil Abs 0.10 10e9/L Unknown COMPLETE BLOOD COUNT 1439111 RDW-SD 44.1 fL 7 Unknown COMPLETE BLOOD COUNT 0665655 Basophil Abs 0.03 10e9/L 11/24 Unknown COMPLETE BLOOD COUNT 8074063 WBC 7.6 10e9/L 12/13/19 17 Unknown COMPLETE BLOOD COUNT 0459318 RBC 3.71 10e12/L 2016 Unknown COMPLETE BLOOD COUNT 6466944 HEMOGLOBIN 8.0 g/dL 12/13/19 17 Unknown COMPLETE BLOOD COUNT 9991491 HEMATOCRIT 27.3 % 12/13/19 17 Unknown COMPLETE BLOOD COUNT 5013812 MCV 73.6 fL 7 Unknown COMPLETE BLOOD COUNT 5212057 MCH 21.6 pg 7 Unknown COMPLETE BLOOD COUNT 4785243 MCHC 29.3 g/dL 7 Unknown COMPLETE BLOOD COUNT 1998334 PLATELET COUNT 330 10e9/L Unknown COMPLETE BLOOD COUNT 5362192 Mean Plt Volume 9.7 fL Unknown COMPLETE BLOOD COUNT 1290283 Neut Auto 73.2 % 7 Unknown COMPLETE BLOOD COUNT 2240747 Lymph Auto 14.5 % 12/13/19 17 Unknown COMPLETE BLOOD COUNT 8842827 Blaine Auto 10.5 % 7 Unknown COMPLETE BLOOD COUNT 6001537 RDW 17.3 % 7 Unknown COMPLETE BLOOD COUNT 7532726 Eos Auto 1.3 % 7 Unknown COMPLETE BLOOD COUNT 5376359 Baso Auto 0.5 % 7 Unknown COMPLETE BLOOD COUNT 8522784 Neutrophil Abs 5.56 10e9/L Unknown COMPLETE BLOOD COUNT 5717911 Lymphocyte Abs 1.10 10e9/L Unknown COMPLETE BLOOD COUNT 0915262 Monocyte Abs 0.80 10e9/L 11/23 Unknown COMPLETE BLOOD COUNT 1187889 Eosinophil Abs 0.10 10e9/L Unknown COMPLETE BLOOD COUNT 7185683 Basophil Abs 0.04 10e9/L 11/23 Unknown COMPLETE BLOOD COUNT 9495012 RDW-SD 45.2 fL 7 Unknown IRON 21489 Iron 69 ug/dL 03/09/2016 Unknown VITAMIN B 12 24739 VITAMIN B12 311 pg/mL 03/09/2016 Unkn own MEAN GLUC 0237185 Mean Glucose 260 mg/dL 03/07/2016 Unknow n GLYCOSYLATED HEMOGLOBIN TEST 47940 Hgb A1c 79744-1 10.7 % 0 03/07/2016 Unknown COMPREHENSIVE METABOLIC 22312 AST 14 U/L 2015 Unknown COMPREHENSIVE METABOLIC 20711 ALT 21 U/L 2015 Unknown COMPREHENSIVE METABOLIC 45533 BUN 27 mg/dL 2015 Unknown COMPREHENSIVE METABOLIC 05854 ALBUMIN 4.5 g/dL 2015 Unknown COMPREHENSIVE METABOLIC 93160 CHLORIDE 101 mmol/L 03/06 Unknown COMPREHENSIVE METABOLIC 03527 Bili Total 0.4 mg/dL 03/06 Unknown COMPREHENSIVE METABOLIC 02872 ALK PHOS 49 U/L 2015 Unknown COMPREHENSIVE METABOLIC 40058 SODIUM 136 mmol/L 03/06 Unknown COMPREHENSIVE METABOLIC 08546 CREATININE 1.16 mg/dL 02/22 Unknown COMPREHENSIVE METABOLIC 40235 CALCIUM 9.9 mg/dL 2015 Unknown COMPREHENSIVE METABOLIC 22919 POTASSIUM 4.5 mmol/L 03/06 Unknown COMPREHENSIVE METABOLIC 08483 Total Protein 6.7 g/dL Unknown COMPREHENSIVE METABOLIC 28428 Glucose 245 mg/dL 2015 Unknown COMPREHENSIVE METABOLIC 92018 Bicarbonate 24 mmol/L 02/22 Unknown COMPREHENSIVE METABOLIC 53261 AGAP 11 mmol/L 2015 Unknown THYROID STIMULATING HORMONE 13673 TSH 0.775 uIU/mL 03/06/2016 Unknown TESTOSTERONE TOTAL 31707 Testos Total 96 ng/dL 03/06/20 16 Unknown LIPID GROUP 09617 Cholesterol 146 mg/dL 03/06/2016 Unkno wn LIPID GROUP 96406 Triglyceride 249 mg/dL 03/06/2016 Unkn own LIPID GROUP 45429 HDL CHOLESTEROL 46 mg/dL 03/06/2016 U nknown LIPID GROUP 11724 Chol/HDL Ratio 3.17 ratio 03/06/2016 U nknown LIPID GROUP 73637 NON-HDL Chol 100 mg/dL 03/06/2016 Unkn own LIPID GROUP 82863 LDL Cholesterol 50 mg/dL 03/06/2016 U nknown COMPLETE BLOOD COUNT 1082495 WBC 11.2 10e9/L 016 Unknown COMPLETE BLOOD COUNT 1600261 RBC 3.94 10e12/L 2015 Unknown COMPLETE BLOOD COUNT 1026799 HEMOGLOBIN 11.4 g/dL 03/06/20 16 Unknown COMPLETE BLOOD COUNT 1617414 HEMATOCRIT 33.7 % 03/06/20 16 Unknown COMPLETE BLOOD COUNT 5080607 MCV 85.5 fL 6 Unknown COMPLETE BLOOD COUNT 7046538 MCH 28.9 pg 6 Unknown COMPLETE BLOOD COUNT 4110428 MCHC 33.8 g/dL 6 Unknown COMPLETE BLOOD COUNT 3529658 PLATELET COUNT 204 10e9/L Unknown COMPLETE BLOOD COUNT 9351658 Mean Plt Volume 10.1 fL Unknown COMPLETE BLOOD COUNT 0160930 Neut Auto 85.9 % 6 Unknown COMPLETE BLOOD COUNT 6960788 Lymph Auto 6.8 % 03/06/20 16 Unknown COMPLETE BLOOD COUNT 8976771 Blaine Auto 7.0 % 6 Unknown COMPLETE BLOOD COUNT 1676452 RDW 13.7 % 6 Unknown COMPLETE BLOOD COUNT 5678227 Eos Auto 0.1 % 6 Unknown COMPLETE BLOOD COUNT 2020389 Baso Auto 0.2 % 6 Unknown COMPLETE BLOOD COUNT 8256223 Neutrophil Abs 9.62 10e9/L Unknown COMPLETE BLOOD COUNT 6351301 Lymphoctye Abs 0.76 10e9/L Unknown COMPLETE BLOOD COUNT 7382178 Monocyte Abs 0.78 10e9/L 02/22 Unknown COMPLETE BLOOD COUNT 0592304 Eosinophil Abs 0.01 10e9/L Unknown COMPLETE BLOOD COUNT 5005434 RDW-SD 41.9 fL 6 Unknown COMPLETE BLOOD COUNT 3042672 Basophil Abs 0.02 10e9/L 02/22 Unknown FREE T4 86014 T4 Free 0.89 ng/dL 03/06/2016 Unknown GFR CALC 4225128 GFR Non Afr Amr >60 mL/min 03/06/2016 Un known GFR CALC 4321684 GFR Afr Amr >60 mL/min 03/06/2016 Unknow n PSA EQUIMOLAR JONATAN 59933 PSA Total 0.78 ng/mL 6 Unknown FREE T4 00210 FREE T4 0.90 NG/DL 07/01/2015 Unknown LIPID GROUP 76932 HDL TEST 44 MG/DL 07/01/2015 Unknown LIPID GROUP 15678 TRIG 303 MG/DL 07/01/2015 Unknown LIPID GROUP 49873 TEST LDL 56 MG/DL 07/01/2015 Unknown LIPID GROUP 81195 CHOL 161 MG/DL 07/01/2015 Unknown LIPID GROUP 07147 RCHOL/HDL 3.66 RATIO 07/01/2015 Unknow n LIPID GROUP 84544 NON-HDL CH 117 MG/DL 07/01/2015 Unknow n THYROID STIMULATING HORMONE 75605 TSH 1.783 uIU/ML 07/01/2015 Unknown COMPLETE BLOOD COUNT 5001393 WBC 6.6 10e9/L 07/01/20 15 Unknown COMPLETE BLOOD COUNT 9291766 RBC 4.18 10e12/L 2014 Unknown COMPLETE BLOOD COUNT 0364115 HGB 12.2 g/dL 5 Unknown COMPLETE BLOOD COUNT 9726263 HCT DET 37.0 % 5 Unknown COMPLETE BLOOD COUNT 0708347 MCV 88.5 fL 5 Unknown COMPLETE BLOOD COUNT 0107939 MCH 29.2 pg 5 Unknown COMPLETE BLOOD COUNT 3825853 MCHC 33.0 g/dL 5 Unknown COMPLETE BLOOD COUNT 5094682 PLT 224 10e9/L 07/01/20 15 Unknown COMPLETE BLOOD COUNT 7000109 MPV 10.4 fL 5 Unknown COMPLETE BLOOD COUNT 5769110 SUSIE % 72.6 % 5 Unknown COMPLETE BLOOD COUNT 9023121 LY % 14.1 % 5 Unknown COMPLETE BLOOD COUNT 6371261 MON % 10.2 % 5 Unknown COMPLETE BLOOD COUNT 1379239 EOS % 2.6 % 5 Unknown COMPLETE BLOOD COUNT 8815215 BASO % 0.5 % 5 Unknown COMPLETE BLOOD COUNT 3654114 RDW 14.1 % 5 Unknown COMPLETE BLOOD COUNT 4324687 ABS SUSIE 4.79 10e9/L 015 Unknown COMPLETE BLOOD COUNT 5651186 ABS LYMPH 0.93 10e9/L 015 Unknown COMPLETE BLOOD COUNT 8229015 ABS MONO 0.67 10e9/L 015 Unknown COMPLETE BLOOD COUNT 4646066 ABS EOS 0.17 10e9/L 015 Unknown COMPLETE BLOOD COUNT 3337171 ABS BASO 0.03 10e9/L 015 Unknown COMPLETE BLOOD COUNT 6710780 RDW-SD 43.9 fL 5 Unknown PSA EQUIMOLAR JONATAN 86969 PSA EQ 0.73 NG/ML 5 Unknown COMPREHENSIVE METABOLIC 94100 AST 24 U/L 2014 Unknown COMPREHENSIVE METABOLIC 98870 ALT 26 IU/L 2014 Unknown COMPREHENSIVE METABOLIC 65726 BUN 26 MG/DL 2014 Unknown COMPREHENSIVE METABOLIC 81843 ALBUMIN 4.6 GM/DL 2014 Unknown COMPREHENSIVE METABOLIC 95997 CHLORIDE 102 MMOL/L 06/01 Unknown COMPREHENSIVE METABOLIC 81279 BILI TOT 0.5 MG/DL 2014 Unknown COMPREHENSIVE METABOLIC 32668 ALK PHOS 56 U/L 2014 Unknown COMPREHENSIVE METABOLIC 07427 SODIUM 136 MMOL/L 06/01 Unknown COMPREHENSIVE METABOLIC 08421 CREATININE 1.16 MG/DL 04/2015 Unknown COMPREHENSIVE METABOLIC 90583 CALCIUM 9.8 MG/DL 2014 Unknown COMPREHENSIVE METABOLIC 38123 POTASSIUM 4.6 MMOL/L 06/01 Unknown COMPREHENSIVE METABOLIC 75604 PROT TOT 7.4 GM/DL 2014 Unknown COMPREHENSIVE METABOLIC 99737 Glucose 223 MG/DL 2014 Unknown COMPREHENSIVE METABOLIC 26936 BICARB 27 MMOL/L 2014 Unknown COMPREHENSIVE METABOLIC 68321 ANION GAP 7 MEQ/L 2014 Unknown GFR CALC [id number] GFR AA >60 ML/MIN 06/01/2015 Unknown GFR CALC [id number] GFR NON-AA >60 ML/MIN 06/01/2015 Unknown GLYCOSYLATED HEMOGLOBIN TEST 17494 A1C HPLC 39714-5 8.9 % 0 06/01/2015 Unknown GFR CALC [id number] GFR AA >60 ML/MIN 02/25/2015 Unknown GFR CALC [id number] GFR NON-AA >60 ML/MIN 02/25/2015 Unknown COMPREHENSIVE METABOLIC 82923 AST 24 U/L 2014 Unknown COMPREHENSIVE METABOLIC 11148 ALT 25 IU/L 2014 Unknown COMPREHENSIVE METABOLIC 19313 BUN 14 MG/DL 2014 Unknown COMPREHENSIVE METABOLIC 23440 ALBUMIN 4.5 GM/DL 2014 Unknown COMPREHENSIVE METABOLIC 53228 CHLORIDE 99 MMOL/L 2014 Unknown COMPREHENSIVE METABOLIC 13024 BILI TOT 0.5 MG/DL 2014 Unknown COMPREHENSIVE METABOLIC 21164 ALK PHOS 48 U/L 2014 Unknown COMPREHENSIVE METABOLIC 28503 SODIUM 136 MMOL/L 02/25 Unknown COMPREHENSIVE METABOLIC 44279 CREATININE 0.97 MG/DL 12/2014 Unknown COMPREHENSIVE METABOLIC 29272 CALCIUM 9.9 MG/DL 2014 Unknown COMPREHENSIVE METABOLIC 22929 POTASSIUM 4.4 MMOL/L 02/25 Unknown COMPREHENSIVE METABOLIC 83858 PROT TOT 7.1 GM/DL 2014 Unknown COMPREHENSIVE METABOLIC 97546 Glucose 171 MG/DL 2014 Unknown COMPREHENSIVE METABOLIC 66518 BICARB 25 MMOL/L 2014 Unknown COMPREHENSIVE METABOLIC 46793 ANION GAP 12 MEQ/L 2014 Unknown PROTEIN/CREAT URINE WITH RATIO 90013|68599 PROT R U 19 MG/D L 08/27/2014 Unknown PROTEIN/CREAT URINE WITH RATIO 92457|04341 CREAT R U 111 MG/ DL 08/27/2014 Unknown PROTEIN/CREAT URINE WITH RATIO 24728|12864 XRATIO P/C 171 MG /G 08/27/2014 Unknown MICROALBUMIN URINE RANDOM 28159 MICRL MG/L 34.7 MG/L 12/2013 Unknown MICROALBUMIN URINE RANDOM 32652 XM.ALB/CRE 32.7 MG/GCR 1 10/28/2013 Unknown MICROALBUMIN URINE RANDOM 03463 CREAT MG/D 106 MG/DL 12/2013 Unknown MICROALBUMIN URINE RANDOM 97609 CRE/100 1.06 G/L 1212/2013 Unknown COMPLETE BLOOD COUNT [id number] WBC 7.1 10e9/L 08/05/20 14 Unknown COMPLETE BLOOD COUNT [id number] RBC 4.35 10e12/L 2013 Unknown COMPLETE BLOOD COUNT [id number] HGB 12.9 g/dL 4 Unknown COMPLETE BLOOD COUNT [id number] HCT DET 39.4 % 4 Unknown COMPLETE BLOOD COUNT [id number] MCV 90.6 fL 4 Unknown COMPLETE BLOOD COUNT [id number] MCH 29.7 pg 4 Unknown COMPLETE BLOOD COUNT [id number] MCHC 32.7 g/dL 4 Unknown COMPLETE BLOOD COUNT [id number] PLT 240 10e9/L 08/05/20 14 Unknown COMPLETE BLOOD COUNT [id number] MPV 10.3 fL 4 Unknown COMPLETE BLOOD COUNT [id number] SUSIE % 70.0 % 4 Unknown COMPLETE BLOOD COUNT [id number] LY % 16.4 % 4 Unknown COMPLETE BLOOD COUNT [id number] MON % 9.2 % 4 Unknown COMPLETE BLOOD COUNT [id number] EOS % 3.8 % 4 Unknown COMPLETE BLOOD COUNT [id number] BASO % 0.6 % 4 Unknown COMPLETE BLOOD COUNT [id number] RDW 13.4 % 4 Unknown COMPLETE BLOOD COUNT [id number] ABS SUSIE 4.97 10e9/L 014 Unknown COMPLETE BLOOD COUNT [id number] ABS LYMPH 1.16 10e9/L 014 Unknown COMPLETE BLOOD COUNT [id number] ABS MONO 0.65 10e9/L 014 Unknown COMPLETE BLOOD COUNT [id number] ABS EOS 0.27 10e9/L 014 Unknown COMPLETE BLOOD COUNT [id number] ABS BASO 0.04 10e9/L 014 Unknown COMPLETE BLOOD COUNT [id number] RDW-SD 43.3 fL 201 4 Unknown FREE T4 68185 FREE T4 1.02 NG/DL 08/05/2014 Unknown GFR CALC 6998523 GFR AA >60 ML/MIN 08/05/2014 Unknown GFR CALC 9107697 GFR NON-AA >60 ML/MIN 08/05/2014 Unknown GLYCOSYLATED HEMOGLOBIN TEST 22437 A1C HPLC 60640-1 7.7 % 1 10/05/2013 Unknown COMPREHENSIVE METABOLIC 09594 AST 19 U/L 2013 Unknown COMPREHENSIVE METABOLIC 71633 ALT 21 IU/L 2013 Unknown COMPREHENSIVE METABOLIC 09285 BUN 25 MG/DL 2013 Unknown COMPREHENSIVE METABOLIC 83809 ALBUMIN 4.6 GM/DL 2013 Unknown COMPREHENSIVE METABOLIC 48644 CHLORIDE 103 MMOL/L 08/05 Unknown COMPREHENSIVE METABOLIC 81722 BILI TOT 0.4 MG/DL 2013 Unknown COMPREHENSIVE METABOLIC 98957 ALK PHOS 45 U/L 2013 Unknown COMPREHENSIVE METABOLIC 01626 SODIUM 138 MMOL/L 08/05 Unknown COMPREHENSIVE METABOLIC 41012 CREATININE 1.01 MG/DL 07/25 Unknown COMPREHENSIVE METABOLIC 66354 CALCIUM 9.8 MG/DL 2013 Unknown COMPREHENSIVE METABOLIC 10988 POTASSIUM 4.7 MMOL/L 08/05 Unknown COMPREHENSIVE METABOLIC 85270 PROT TOT 7.0 GM/DL 2013 Unknown COMPREHENSIVE METABOLIC 52382 Glucose 145 MG/DL 2013 Unknown COMPREHENSIVE METABOLIC 02166 BICARB 27 MMOL/L 2013 Unknown COMPREHENSIVE METABOLIC 06074 ANION GAP 8 MEQ/L 2013 Unknown THYROID STIMULATING HORMONE 00760 TSH 1.922 uIU/ML 08/05/2014 Unknown LIPID GROUP 06083 HDL TEST 47 MG/DL 08/05/2014 Unknown LIPID GROUP 40254 TRIG 224 MG/DL 08/05/2014 Unknown LIPID GROUP 08796 TEST LDL 125 MG/DL 08/05/2014 Unknown LIPID GROUP 43459 CHOL 217 MG/DL 08/05/2014 Unknown LIPID GROUP 65085 RCHOL/HDL 4.62 RATIO 08/05/2014 Unknow n LIPID GROUP 05114 NON-HDL CH 170 MG/DL 08/05/2014 Unknow n MYCOPLASMA ANTIBODY, IFA [id number] MYCO G IFA 1:256 03/24 Unknown MYCOPLASMA ANTIBODY, IFA [id number] MYCO M IFA <1:10 03/24 Unknown MYCOPLASMA ANTIBODY, IFA [id number] MYCO INTER SEE BELO 03/24 Unknown COMPLETE BLOOD COUNT [id number] WBC 8.3 10e9/L 04/09/20 13 Unknown COMPLETE BLOOD COUNT [id number] RBC 4.61 10e12/L 2012 Unknown COMPLETE BLOOD COUNT [id number] HGB 13.9 g/dL 3 Unknown COMPLETE BLOOD COUNT 2229319 HCT DET 41.2 % 3 Unknown COMPLETE BLOOD COUNT [id number] MCV 89.4 fL 3 Unknown COMPLETE BLOOD COUNT [id number] MCH 30.2 pg 3 Unknown COMPLETE BLOOD COUNT 5775654 MCHC 33.7 g/dL 3 Unknown COMPLETE BLOOD COUNT [id number] PLT 249 10e9/L 04/09/20 13 Unknown COMPLETE BLOOD COUNT [id number] MPV 9.8 fL 3 Unknown COMPLETE BLOOD COUNT [id number] SUSIE % 65.9 % 3 Unknown COMPLETE BLOOD COUNT [id number] LY % 19.8 % 3 Unknown COMPLETE BLOOD COUNT [id number] MON % 10.8 % 3 Unknown COMPLETE BLOOD COUNT [id number] EOS % 3.0 % 3 Unknown COMPLETE BLOOD COUNT [id number] BASO % 0.5 % 3 Unknown COMPLETE BLOOD COUNT 7291351 RDW 14.0 % 3 Unknown COMPLETE BLOOD COUNT [id number] ABS SUSIE 5.47 10e9/L 013 Unknown COMPLETE BLOOD COUNT [id number] ABS LYMPH 1.64 10e9/L 013 Unknown COMPLETE BLOOD COUNT 8575065 ABS MONO 0.90 10e9/L 013 Unknown COMPLETE BLOOD COUNT [id number] ABS EOS 0.25 10e9/L 013 Unknown COMPLETE BLOOD COUNT [id number] ABS BASO 0.04 10e9/L 013 Unknown COMPLETE BLOOD COUNT [id number] RDW-SD 45.0 fL 3 Unknown URIC ACID 92285 URIC ACID 5.3 MG/DL 02/12/2013 Unknown FREE T4 89153 FREE T4 1.09 NG/DL 02/11/2013 Unknown COMPLETE BLOOD COUNT [id number] WBC 6.3 10e9/L 02/12/20 13 Unknown COMPLETE BLOOD COUNT [id number] RBC 4.29 10e12/L 2012 Unknown COMPLETE BLOOD COUNT 1726494 HGB 13.1 g/dL 3 Unknown COMPLETE BLOOD COUNT [id number] HCT DET 39.7 % 3 Unknown COMPLETE BLOOD COUNT 0796924 MCV 92.5 fL 3 Unknown COMPLETE BLOOD COUNT 9903361 MCH 30.5 pg 3 Unknown COMPLETE BLOOD COUNT 6336466 MCHC 33.0 g/dL 3 Unknown COMPLETE BLOOD COUNT 1527408 PLT 247 10e9/L 02/12/20 13 Unknown COMPLETE BLOOD COUNT 7457477 MPV 10.0 fL 3 Unknown COMPLETE BLOOD COUNT 8892214 SUSIE % 73.4 % 3 Unknown COMPLETE BLOOD COUNT 7195232 LY % 13.5 % 3 Unknown COMPLETE BLOOD COUNT [id number] MON % 9.4 % 3 Unknown COMPLETE BLOOD COUNT 1819142 EOS % 2.9 % 3 Unknown COMPLETE BLOOD COUNT [id number] BASO % 0.8 % 3 Unknown COMPLETE BLOOD COUNT [id number] RDW 13.8 % 3 Unknown COMPLETE BLOOD COUNT [id number] ABS SUSIE 4.62 10e9/L 013 Unknown COMPLETE BLOOD COUNT [id number] ABS LYMPH 0.85 10e9/L 013 Unknown COMPLETE BLOOD COUNT 1400240 ABS MONO 0.59 10e9/L 013 Unknown COMPLETE BLOOD COUNT [id number] ABS EOS 0.18 10e9/L 013 Unknown COMPLETE BLOOD COUNT [id number] ABS BASO 0.05 10e9/L 013 Unknown COMPLETE BLOOD COUNT [id number] RDW-SD 45.7 fL 3 Unknown HEMOGLOBIN A1C (GLYCOSYLATED) 9796664 A1C HPLC 06474-0 7.5 % 02/11/2013 Unknown THYROID STIMULATING HORMONE 84281 TSH 1.466 uIU/ML 02/11/2013 Unknown VITAMIN B 12 FOLIC ACID 38547|61803 VIT B 12 625 PG/ML 01/23 Unknown VITAMIN B 12 FOLIC ACID 67702|01935 FOLIC ACID 15.6 NG/ML Unknown COMPREHENSIVE METABOLIC 31368 AST 18 U/L 2012 Unknown COMPREHENSIVE METABOLIC 62130 ALT 21 IU/L 2012 Unknown COMPREHENSIVE METABOLIC 68429 BUN 25 MG/DL 2012 Unknown COMPREHENSIVE METABOLIC 94790 ALBUMIN 4.6 GM/DL 2012 Unknown COMPREHENSIVE METABOLIC 65477 CHLORIDE 103 MMOL/L 02/11 Unknown COMPREHENSIVE METABOLIC 44080 BILI TOT 0.3 MG/DL 2012 Unknown COMPREHENSIVE METABOLIC 37744 ALK PHOS 53 U/L 2012 Unknown COMPREHENSIVE METABOLIC 66575 SODIUM 136 MMOL/L 02/11 Unknown COMPREHENSIVE METABOLIC 35711 CREATININE 1.16 MG/DL 01/23 Unknown COMPREHENSIVE METABOLIC 14305 CALCIUM 10.0 MG/DL 02/11 Unknown COMPREHENSIVE METABOLIC 71234 POTASSIUM 4.9 MMOL/L 02/11 Unknown COMPREHENSIVE METABOLIC 46876 PROT TOT 7.0 GM/DL 2012 Unknown COMPREHENSIVE METABOLIC 97302 Glucose 192 MG/DL 2012 Unknown COMPREHENSIVE METABOLIC 06304 BICARB 26 MMOL/L 2012 Unknown COMPREHENSIVE METABOLIC 65396 ANION GAP 7 MEQ/L 2012 Unknown GFR CALC 2826499 GFR AA >60 ML/MIN 02/11/2013 Unknown GFR CALC 2558657 GFR NON-AA >60 ML/MIN 02/11/2013 Unknown C-REACTIVE PROTEIN (CRP) QUANT 58182 CRP 2.7 MG/DL 02/11/2013 Unknown GFR CALC 8206041 GFR AA >60 ML/MIN 09/19/2012 Unknown GFR CALC 7870055 GFR NON-AA >60 ML/MIN 09/19/2012 Unknown HEMOGLOBIN A1C (GLYCOSYLATED) 4681851 A1C HPLC 84684-1 7.2 % 09/19/2012 Unknown COMPREHENSIVE METABOLIC 48399 AST 13 U/L 2011 Unknown COMPREHENSIVE METABOLIC 39769 ALT 17 IU/L 2011 Unknown COMPREHENSIVE METABOLIC 78979 BUN 25 MG/DL 2011 Unknown COMPREHENSIVE METABOLIC 51507 ALBUMIN 4.5 GM/DL 2011 Unknown COMPREHENSIVE METABOLIC 54292 CHLORIDE 104 MMOL/L 09/19 Unknown COMPREHENSIVE METABOLIC 68483 BILI TOT 0.3 MG/DL 2011 Unknown COMPREHENSIVE METABOLIC 32480 ALK PHOS 43 U/L 2011 Unknown COMPREHENSIVE METABOLIC 80928 SODIUM 139 MMOL/L 09/19 Unknown COMPREHENSIVE METABOLIC 36045 CREATININE 1.10 MG/DL 08/25 Unknown COMPREHENSIVE METABOLIC 87072 CALCIUM 9.8 MG/DL 2011 Unknown COMPREHENSIVE METABOLIC 20085 POTASSIUM 4.8 MMOL/L 09/19 Unknown COMPREHENSIVE METABOLIC 56606 PROT TOT 6.5 GM/DL 2011 Unknown COMPREHENSIVE METABOLIC 93617 Glucose 148 MG/DL 2011 Unknown COMPREHENSIVE METABOLIC 08790 BICARB 25 MMOL/L 2011 Unknown COMPREHENSIVE METABOLIC 34065 ANION GAP 10 MEQ/L 2011 Unknown LIPID GROUP 29696 HDL TEST 44 MG/DL 09/19/2012 Unknown LIPID GROUP 22144 TRIG 318 MG/DL 09/19/2012 Unknown LIPID GROUP 34242 TEST LDL 100 MG/DL 09/19/2012 Unknown LIPID GROUP 25947 CHOL 208 MG/DL 09/19/2012 Unknown LIPID GROUP 09271 RCHOL/HDL 4.73 RATIO 09/19/2012 Unknow n FREE T4 65634 FREE T4 0.87 NG/DL 05/06/2012 Unknown GLYCOSYLATED HEMOGLOBIN TEST 57843 A1C HPLC 40754-7 6.4 % 0 05/06/2012 Unknown LIPID GROUP 63861 HDL TEST 44 MG/DL 05/06/2012 Unknown LIPID GROUP 69007 TRIG 177 MG/DL 05/06/2012 Unknown LIPID GROUP 46221 TEST LDL 113 MG/DL 05/06/2012 Unknown LIPID GROUP 87567 CHOL 192 MG/DL 05/06/2012 Unknown LIPID GROUP 26836 RCHOL/HDL 4.36 RATIO 05/06/2012 Unknow n THYROID STIMULATING HORMONE 78500 TSH 1.151 uIU/ML 05/06/2012 Unknown COMPLETE BLOOD COUNT 22454 WBC 7.8 10e9/L 05/06/20 12 Unknown COMPLETE BLOOD COUNT 92157 RBC 4.31 10e12/L 2011 Unknown COMPLETE BLOOD COUNT 00390 HGB 12.8 g/dL 2 Unknown COMPLETE BLOOD COUNT 11873 HCT DET 39.1 % 2 Unknown COMPLETE BLOOD COUNT 84526 MCV 90.7 fL 2 Unknown COMPLETE BLOOD COUNT 81215 MCH 29.7 pg 2 Unknown COMPLETE BLOOD COUNT 30634 MCHC 32.7 g/dL 2 Unknown COMPLETE BLOOD COUNT 71433 PLT 207 10e9/L 05/06/20 12 Unknown COMPLETE BLOOD COUNT 92271 MPV 10.2 fL 2 Unknown COMPLETE BLOOD COUNT 71852 SUSIE % 74.2 % 2 Unknown COMPLETE BLOOD COUNT 63633 LY % 12.8 % 2 Unknown COMPLETE BLOOD COUNT 31954 MON % 11.0 % 2 Unknown COMPLETE BLOOD COUNT 74914 EOS % 1.7 % 2 Unknown COMPLETE BLOOD COUNT 99111 BASO % 0.3 % 2 Unknown COMPLETE BLOOD COUNT 77276 RDW 13.7 % 2 Unknown COMPLETE BLOOD COUNT 32069 ABS SUSIE 5.79 10e9/L 012 Unknown COMPLETE BLOOD COUNT 77513 ABS LYMPH 1.00 10e9/L 012 Unknown COMPLETE BLOOD COUNT 28681 ABS MONO 0.86 10e9/L 012 Unknown COMPLETE BLOOD COUNT 19617 ABS EOS 0.13 10e9/L 012 Unknown COMPLETE BLOOD COUNT 54375 ABS BASO 0.02 10e9/L 012 Unknown COMPLETE BLOOD COUNT 06444 RDW-SD 44.4 fL 2 Unknown COMPREHENSIVE METABOLIC 22462 AST 13 U/L 2011 Unknown COMPREHENSIVE METABOLIC 25370 ALT 14 IU/L 2011 Unknown COMPREHENSIVE METABOLIC 33665 BUN 17 MG/DL 2011 Unknown COMPREHENSIVE METABOLIC 12999 ALBUMIN 4.5 GM/DL 2011 Unknown COMPREHENSIVE METABOLIC 59773 CHLORIDE 101 MMOL/L 05/06 Unknown COMPREHENSIVE METABOLIC 46895 BILI TOT 0.5 MG/DL 2011 Unknown COMPREHENSIVE METABOLIC 96557 ALK PHOS 42 U/L 2011 Unknown COMPREHENSIVE METABOLIC 87834 SODIUM 141 MMOL/L 05/06 Unknown COMPREHENSIVE METABOLIC 80970 CREATININE 1.02 MG/DL 04/24 Unknown COMPREHENSIVE METABOLIC 23941 CALCIUM 9.7 MG/DL 2011 Unknown COMPREHENSIVE METABOLIC 94379 POTASSIUM 4.6 MMOL/L 05/06 Unknown COMPREHENSIVE METABOLIC 99435 PROT TOT 6.5 GM/DL 2011 Unknown COMPREHENSIVE METABOLIC 49733 Glucose 139 MG/DL 2011 Unknown COMPREHENSIVE METABOLIC 88422 BICARB 29 MMOL/L 2011 Unknown COMPREHENSIVE METABOLIC 76960 ANION GAP 11 MEQ/L 2011 Unknown GFR CALC 2415466 GFR AA >60 ML/MIN 05/06/2012 Unknown GFR CALC 2764732 GFR NON-AA 54.0L ML/MIN 05/06/2012 Unkno wn GLYCOSYLATED HEMOGLOBIN TEST 95593 A1C HPLC 72487-3 6.6 % 1 09/30/2010 Unknown FREE T4 89707 FREE T4 1.00 NG/DL 07/26/2011 Unknown LIPID GROUP 89096 HDL TEST 40 MG/DL 07/26/2011 Unknown LIPID GROUP 61686 TRIG 136 MG/DL 07/26/2011 Unknown LIPID GROUP 56180 TEST LDL 126 MG/DL 07/26/2011 Unknown LIPID GROUP 29207 CHOL 193 MG/DL 07/26/2011 Unknown LIPID GROUP 13610 RCHOL/HDL 4.83 RATIO 07/26/2011 Unknow n COMPREHENSIVE METABOLIC 52777 AST 15 U/L 2010 Unknown COMPREHENSIVE METABOLIC 17153 ALT 13 IU/L 2010 Unknown COMPREHENSIVE METABOLIC 50946 BUN 17 MG/DL 2010 Unknown COMPREHENSIVE METABOLIC 94456 ALBUMIN 4.4 GM/DL 2010 Unknown COMPREHENSIVE METABOLIC 01096 CHLORIDE 102 MMOL/L 07/26 Unknown COMPREHENSIVE METABOLIC 59710 BILI TOT 0.5 MG/DL 2010 Unknown COMPREHENSIVE METABOLIC 73406 ALK PHOS 54 U/L 2010 Unknown COMPREHENSIVE METABOLIC 52539 SODIUM 138 MMOL/L 07/26 Unknown COMPREHENSIVE METABOLIC 55484 CREATININE 0.95 MG/DL 10/2010 Unknown COMPREHENSIVE METABOLIC 92390 CALCIUM 9.3 MG/DL 2010 Unknown COMPREHENSIVE METABOLIC 80678 POTASSIUM 4.3 MMOL/L 07/26 Unknown COMPREHENSIVE METABOLIC 84360 PROT TOT 6.7 GM/DL 2010 Unknown COMPREHENSIVE METABOLIC 40660 Glucose 116 MG/DL 2010 Unknown COMPREHENSIVE METABOLIC 98326 BICARB 28 MMOL/L 2010 Unknown COMPREHENSIVE METABOLIC 04157 ANION GAP 8 MEQ/L 2010 Unknown PSA EQUIMOLAR JONATAN 58332 PSA EQ 1.01 NG/ML 1 Unknown COMPLETE BLOOD COUNT 87310 WBC 6.4 10e9/L 07/26/20 11 Unknown COMPLETE BLOOD COUNT 65526 RBC 4.43 10e12/L 2010 Unknown COMPLETE BLOOD COUNT 09041 HGB 13.2 g/dL 1 Unknown COMPLETE BLOOD COUNT 16778 HCT DET 39.3 % 1 Unknown COMPLETE BLOOD COUNT 74556 MCV 88.7 fL 1 Unknown COMPLETE BLOOD COUNT 83526 MCH 29.8 pg 1 Unknown COMPLETE BLOOD COUNT 80157 MCHC 33.6 g/dL 1 Unknown COMPLETE BLOOD COUNT 16982 PLT 226 10e9/L 07/26/20 11 Unknown COMPLETE BLOOD COUNT 30010 MPV 9.9 fL 1 Unknown COMPLETE BLOOD COUNT 89742 SUSIE % 65.4 % 1 Unknown COMPLETE BLOOD COUNT 23370 LY % 19.7 % 1 Unknown COMPLETE BLOOD COUNT 45146 MON % 10.8 % 1 Unknown COMPLETE BLOOD COUNT 76007 EOS % 3.6 % 1 Unknown COMPLETE BLOOD COUNT 97417 BASO % 0.5 % 1 Unknown COMPLETE BLOOD COUNT 00802 RDW 13.2 % 1 Unknown COMPLETE BLOOD COUNT 71544 ABS SUSIE 4.19 10e9/L 011 Unknown COMPLETE BLOOD COUNT 51997 ABS LYMPH 1.26 10e9/L 011 Unknown COMPLETE BLOOD COUNT 20010 ABS MONO 0.69 10e9/L 011 Unknown COMPLETE BLOOD COUNT 81332 ABS EOS 0.23 10e9/L 011 Unknown COMPLETE BLOOD COUNT 13433 ABS BASO 0.03 10e9/L 011 Unknown COMPLETE BLOOD COUNT 66859 RDW-SD 41.7 fL 1 Unknown THYROID STIMULATING HORMONE 06107 TSH 1.345 uIU/ML 07/26/2011 Unknown GFR CALC 8305826 GFR AA >60 ML/MIN 07/26/2011 Unknown GFR CALC 5717497 GFR NON-AA >60 ML/MIN 07/26/2011 Unknown BRAIN NATRIURETIC PEPTIDE(BNP) 13400 BRAIN PEP 23 pg/mL 01/19/2011 Unknown CANCEL 5191621 CANCEL FOOTNOTE 01/18/2011 Unknown TESTOSTERONE TOTAL 28452 TESTOS TO 138 NG/DL 12/19/2010 Unknown COMPLETE BLOOD COUNT 93246 WBC 8.4 10e9/L 12/08/19 11 Unknown COMPLETE BLOOD COUNT 44788 RBC 4.40 10e12/L 2010 Unknown COMPLETE BLOOD COUNT 84757 HGB 13.3 g/dL 1 Unknown COMPLETE BLOOD COUNT 68546 HCT DET 39.8 % 1 Unknown COMPLETE BLOOD COUNT 33530 MCV 90.5 fL 1 Unknown COMPLETE BLOOD COUNT 63978 MCH 30.2 pg 1 Unknown COMPLETE BLOOD COUNT 05704 MCHC 33.4 g/dL 1 Unknown COMPLETE BLOOD COUNT 01266 PLT 201 10e9/L 12/08/19 11 Unknown COMPLETE BLOOD COUNT 73049 MPV 10.6 fL 1 Unknown COMPLETE BLOOD COUNT 37321 SUSIE % 72.5 % 1 Unknown COMPLETE BLOOD COUNT 19320 LY % 14.8 % 1 Unknown COMPLETE BLOOD COUNT 68991 MON % 10.6 % 1 Unknown COMPLETE BLOOD COUNT 14563 EOS % 1.7 % 1 Unknown COMPLETE BLOOD COUNT 03384 BASO % 0.4 % 1 Unknown COMPLETE BLOOD COUNT 01950 RDW 13.7 % 1 Unknown COMPLETE BLOOD COUNT 72408 ABS SUSIE 6.09 10e9/L 011 Unknown COMPLETE BLOOD COUNT 23191 ABS LYMPH 1.24 10e9/L 011 Unknown COMPLETE BLOOD COUNT 68582 ABS MONO 0.89 10e9/L 011 Unknown COMPLETE BLOOD COUNT 95666 ABS EOS 0.14 10e9/L 011 Unknown COMPLETE BLOOD COUNT 47754 ABS BASO 0.03 10e9/L 011 Unknown COMPLETE BLOOD COUNT 88713 RDW-SD 44.0 fL 1 Unknown LIPID GROUP 34866 HDL TEST 40 MG/DL 12/07/2010 Unknown LIPID GROUP 60841 TRIG 383 MG/DL 12/07/2010 Unknown LIPID GROUP 63257 TEST LDL 82 MG/DL 12/07/2010 Unknown LIPID GROUP 11231 CHOL 199 MG/DL 12/07/2010 Unknown LIPID GROUP 87791 RCHOL/HDL 4.98 RATIO 12/07/2010 Unknow n GFR CALC 8920963 GFR AA >60 ML/MIN 12/07/2010 Unknown GFR CALC 2764211 GFR NON-AA >60 ML/MIN 12/07/2010 Unknown COMPREHENSIVE METABOLIC 17795 AST 29 U/L 2010 Unknown COMPREHENSIVE METABOLIC 01660 ALT 39 IU/L 2010 Unknown COMPREHENSIVE METABOLIC 08947 BUN 17 MG/DL 2010 Unknown COMPREHENSIVE METABOLIC 61574 ALBUMIN 4.9 GM/DL 2010 Unknown COMPREHENSIVE METABOLIC 25699 CHLORIDE 100 MMOL/L 12/07 Unknown COMPREHENSIVE METABOLIC 75564 BILI TOT 0.3 MG/DL 2010 Unknown COMPREHENSIVE METABOLIC 16239 ALK PHOS 53 U/L 2010 Unknown COMPREHENSIVE METABOLIC 77726 SODIUM 137 MMOL/L 12/07 Unknown COMPREHENSIVE METABOLIC 64535 CREATININE 0.98 MG/DL 11/22 Unknown COMPREHENSIVE METABOLIC 09025 CALCIUM 9.5 MG/DL 2010 Unknown COMPREHENSIVE METABOLIC 42138 POTASSIUM 4.3 MMOL/L 12/07 Unknown COMPREHENSIVE METABOLIC 24935 PROT TOT 6.6 GM/DL 2010 Unknown COMPREHENSIVE METABOLIC 36760 Glucose 176 MG/DL 2010 Unknown COMPREHENSIVE METABOLIC 37532 BICARB 28 MMOL/L 2010 Unknown COMPREHENSIVE METABOLIC 25583 ANION GAP 9 MEQ/L 2010 Unknown PSA EQUIMOLAR JONATAN 89347 PSA EQ 0.65 NG/ML 1 Unknown HEMOGLOBIN A1C (GLYCOSYLATED) 31882 A1C HPLC 00460-2 6.9 % 12/07/2010 Unknown Procedures Procedure Codes Date THER/PROPH/DIAG INJ SC/IM CPT-4: 38497 12/25/2019 METHYLPREDNISOLONE INJECTION CPT-4: J2930 12/25/2019 FLU VACC PRSV FREE INC ANTIG 65 AND OLDER CPT-4: 36393 08/07/2019 FLU VACC PRSV FREE INC ANTIG 65 AND OLDER CPT-4: 38520 08/07/2019 ADMIN INFLUENZA VIRUS VAC CPT-4: G0008 08/07/2019 THER/PROPH/DIAG INJ SC/IM CPT-4: 52348 07/14/2019 METHYLPREDNISOLONE INJECTION CPT-4: J2930 07/14/2019 ROUTINE VENIPUNCTURE CPT-4: 29033 06/17/2019 ASSAY THYROID STIM HORMONE CPT-4: 19393 06/17/2019 COMPREHEN METABOLIC PANEL CPT-4: 52187 06/17/2019 COMPLETE CBC W/AUTO DIFF WBC CPT-4: 94775 06/17/2019 ASSAY OF IRON CPT-4: 72421 06/17/2019 VITAMIN B-12 CPT-4: 29009 06/17/2019 RBC SED RATE AUTOMATED CPT-4: 35490 06/17/2019 THER/PROPH/DIAG INJ SC/IM CPT-4: 14958 06/10/2019 THER/PROPH/DIAG INJ SC/IM CPT-4: 16099 06/02/2019 THER/PROPH/DIAG INJ SC/IM CPT-4: 27878 05/27/2019 THER/PROPH/DIAG INJ SC/IM CPT-4: 54397 05/12/2019 ROUTINE VENIPUNCTURE CPT-4: 78083 05/08/2019 COMPREHEN METABOLIC PANEL CPT-4: 35433 05/08/2019 COMPLETE CBC W/AUTO DIFF WBC CPT-4: 51468 05/08/2019 A1C HPLC CPT-4: 85455 05/08/2019 VITAMIN D TOTAL (25 HYDROXY) CPT-4: 95374 05/08/2019 ASSAY OF IRON CPT-4: 76590 05/08/2019 ASSAY OF FERRITIN CPT-4: 60047 05/08/2019 VITAMIN B-12 CPT-4: 54314 05/08/2019 THER/PROPH/DIAG INJ SC/IM CPT-4: 59991 03/21/2019 METHYLPREDNISOLONE INJECTION CPT-4: J2930 03/21/2019 THER/PROPH/DIAG INJ SC/IM CPT-4: 19375 03/13/2019 METHYLPREDNISOLONE INJECTION CPT-4: J2930 03/13/2019 THER/PROPH/DIAG INJ SC/IM CPT-4: 98649 12/25/2018 METHYLPREDNISOLONE INJECTION CPT-4: J2930 12/25/2018 ROUTINE VENIPUNCTURE CPT-4: 64802 12/09/2018 ASSAY OF FREE THYROXINE CPT-4: 19459 12/09/2018 ASSAY THYROID STIM HORMONE CPT-4: 03395 12/09/2018 COMPREHEN METABOLIC PANEL CPT-4: 70556 12/09/2018 COMPLETE CBC W/AUTO DIFF WBC CPT-4: 22293 12/09/2018 LIPID PANEL CPT-4: 67504 12/09/2018 A1C HPLC CPT-4: 64238 12/09/2018 PRESCRIP TRANSMIT VIA ERX SY CPT-4: G8553 08/21/2018 PRESCRIP TRANSMIT VIA ERX SY CPT-4: G8553 08/07/2018 THER/PROPH/DIAG INJ SC/IM CPT-4: 82596 05/23/2018 METHYLPREDNISOLONE INJECTION CPT-4: J2930 05/23/2018 PRESCRIP TRANSMIT VIA ERX SY CPT-4: G8553 05/02/2018 THER/PROPH/DIAG INJ SC/IM CPT-4: 40383 04/29/2018 METHYLPREDNISOLONE INJECTION CPT-4: J2930 04/29/2018 DEXAMETHASONE SODIUM PHOS CPT-4: J1100 04/22/2018 THER/PROPH/DIAG INJ SC/IM CPT-4: 76604 04/22/2018 TRIAMCINOLONE ACET INJ NOS CPT-4: J3301 04/22/2018 PRESCRIP TRANSMIT VIA ERX SY CPT-4: G8553 04/22/2018 PRESCRIP TRANSMIT VIA ERX SY CPT-4: G8553 01/23/2018 URINALYSIS NONAUTO W/O SCOPE CPT-4: 82915 01/02/2018 URINE CULTURE/ COLONY COUNT CPT-4: 72786 01/02/2018 PRESCRIP TRANSMIT VIA ERX SY CPT-4: G8553 01/02/2018 PRESCRIP TRANSMIT VIA ERX SY CPT-4: G8553 12/28/2017 PRESCRIP TRANSMIT VIA ERX SY CPT-4: G8553 12/21/2017 CEFTRIAXONE SODIUM INJECTION CPT-4: J0696 12/17/2017 THER/PROPH/DIAG INJ SC/IM CPT-4: 96435 12/17/2017 THER/PROPH/DIAG INJ SC/IM CPT-4: 21863 12/17/2017 TRIAMCINOLONE ACET INJ NOS CPT-4: J3301 12/17/2017 PRESCRIP TRANSMIT VIA ERX SY CPT-4: G8553 12/17/2017 DRAIN/INJECT JOINT/BURSA CPT-4: 30755 12/11/2017 TRIAMCINOLONE ACET INJ NOS CPT-4: J3301 12/11/2017 DEXAMETHASONE SODIUM PHOS CPT-4: J1100 12/11/2017 DESTRUCT PREMALG LESION (Cryosurgery) CPT-4: 50309 PRESCRIP TRANSMIT VIA ERX SY CPT-4: G8553 10/17/2017 DEXAMETHASONE SODIUM PHOS CPT-4: J1100 08/02/2017 THER/PROPH/DIAG INJ SC/IM CPT-4: 22325 08/02/2017 TRIAMCINOLONE ACET INJ NOS CPT-4: J3301 08/02/2017 PRESCRIP TRANSMIT VIA ERX SY CPT-4: G8553 08/02/2017 PNEUMOCOCCAL VACC 23 OLIVIA IM CPT-4: 39587 07/24/2017 ADMIN PNEUMOCOCCAL VACCINE CPT-4: G0009 07/24/2017 ALBUTEROL NON-COMP UNIT CPT-4: J7613 07/02/2017 AIRWAY INHALATION TREATMENT CPT-4: 04350 07/02/2017 THER/PROPH/DIAG INJ SC/IM CPT-4: 79449 07/02/2017 METHYLPREDNISOLONE INJECTION CPT-4: J2930 07/02/2017 PRESCRIP TRANSMIT VIA ERX SY CPT-4: G8553 05/29/2017 ROUTINE VENIPUNCTURE CPT-4: 93848 04/17/2017 ASSAY OF IRON CPT-4: 01503 04/17/2017 VITAMIN B-12 CPT-4: 47500 04/17/2017 COMPREHEN METABOLIC PANEL CPT-4: 29048 04/17/2017 COMPLETE CBC W/AUTO DIFF WBC CPT-4: 84261 04/17/2017 ASSAY OF FERRITIN CPT-4: 67252 04/17/2017 ASSAY THYROID STIM HORMONE CPT-4: 27520 04/17/2017 A1C HPLC CPT-4: 96983 04/17/2017 DRAIN/INJECT JOINT/BURSA CPT-4: 08592 02/01/2017 TRIAMCINOLONE ACET INJ NOS CPT-4: J3301 02/01/2017 DEXAMETHASONE SODIUM PHOS CPT-4: J1100 02/01/2017 ROUTINE VENIPUNCTURE CPT-4: 76352 12/27/2016 COMPLETE CBC W/AUTO DIFF WBC CPT-4: 67090 12/27/2016 ROUTINE VENIPUNCTURE CPT-4: 48109 12/21/2016 COMPLETE CBC W/AUTO DIFF WBC CPT-4: 08152 12/21/2016 ROUTINE VENIPUNCTURE CPT-4: 08136 12/12/2016 COMPLETE CBC W/AUTO DIFF WBC CPT-4: 91085 12/12/2016 PRESCRIP TRANSMIT VIA ERX SY CPT-4: G8553 10/31/2016 PRESCRIP TRANSMIT VIA ERX SY CPT-4: G8553 10/03/2016 PRESCRIP TRANSMIT VIA ERX SY CPT-4: G8553 09/04/2016 DESTRUCT PREMALG LESION (Cryosurgery) CPT-4: 77656 DESTRUCT PREMALG LES 2-14 CPT-4: 78401 08/22/2016 PRESCRIP TRANSMIT VIA ERX SY CPT-4: G8553 08/10/2016 PRESCRIP TRANSMIT VIA ERX SY CPT-4: G8553 07/06/2016 FLU VACC PRSV FREE INC ANTIG 65 AND OLDER CPT-4: 96156 06/13/2016 PNEUMOCOCCAL VACC 13 OLIVIA IM CPT-4: 34075 06/13/2016 ADMIN INFLUENZA VIRUS VAC CPT-4: G0008 06/13/2016 ADMIN PNEUMOCOCCAL VACCINE CPT-4: G0009 06/13/2016 CERUM REMOVAL CPT-4: 00805 04/05/2016 PRESCRIP TRANSMIT VIA ERX SY CPT-4: G8553 04/03/2016 ROUTINE VENIPUNCTURE CPT-4: 57454 03/06/2016 ASSAY OF FREE THYROXINE CPT-4: 21065 03/06/2016 ASSAY THYROID STIM HORMONE CPT-4: 19130 03/06/2016 COMPREHEN METABOLIC PANEL CPT-4: 17802 03/06/2016 COMPLETE CBC W/AUTO DIFF WBC CPT-4: 27372 03/06/2016 LIPID PANEL CPT-4: 68676 03/06/2016 ASSAY OF PSA TOTAL CPT-4: 68219 03/06/2016 TESTOSTERONE TOTAL - MALE CPT-4: 70189 03/06/2016 A1C HPLC CPT-4: 57247 03/06/2016 ASSAY OF IRON CPT-4: 23770 03/06/2016 VITAMIN B-12 CPT-4: 92790 03/06/2016 INJ TENDON SHEATH/LIGAMENT CPT-4: 92092 02/17/2016 TRIAMCINOLONE ACET INJ NOS CPT-4: J3301 02/17/2016 DEXAMETHASONE SODIUM PHOS CPT-4: J1100 02/17/2016 PRESCRIP TRANSMIT VIA ERX SY CPT-4: G8553 01/31/2016 PRESCRIP TRANSMIT VIA ERX SY CPT-4: G8553 12/30/2015 PRESCRIP TRANSMIT VIA ERX SY CPT-4: G8553 12/06/2015 PRESCRIP TRANSMIT VIA ERX SY CPT-4: G8553 11/15/2015 PPPS, subseq visit CPT-4: G0439 10/05/2015 MICROALBUMIN QUANTITATIVE CPT-4: 65472 10/05/2015 PROTEIN/CREAT URINE WITH RATIO CPT-4: 14880|41621 6 ROUTINE VENIPUNCTURE CPT-4: 07287 07/01/2015 ASSAY OF FREE THYROXINE CPT-4: 53136 07/01/2015 ASSAY THYROID STIM HORMONE CPT-4: 70929 07/01/2015 COMPLETE CBC W/AUTO DIFF WBC CPT-4: 25435 07/01/2015 LIPID PANEL CPT-4: 50574 07/01/2015 ASSAY OF PSA TOTAL CPT-4: 78308 07/01/2015 AEROBIC WOUND CULTURE & STN CPT-4: 16984 06/28/2015 PRESCRIP TRANSMIT VIA ERX SY CPT-4: G8553 06/28/2015 AEROBIC WOUND CULTURE & STN CPT-4: 82716 06/03/2015 PRESCRIP TRANSMIT VIA ERX SY CPT-4: G8553 06/03/2015 ROUTINE VENIPUNCTURE CPT-4: 00949 06/01/2015 COMPREHEN METABOLIC PANEL CPT-4: 66759 06/01/2015 A1C HPLC CPT-4: 81194 06/01/2015 COMPREHEN METABOLIC PANEL CPT-4: 60920 02/25/2015 A1C HPLC CPT-4: 41730 02/25/2015 DESTRUCT PREMALG LESION (Cryosurgery) CPT-4: 54975 PROTEIN/CREAT URINE WITH RATIO CPT-4: 06328|53404 5 MICROALBUMIN QUANTITATIVE CPT-4: 98107 10/27/2014 INFLUENZA ASSAY W/OPTIC CPT-4: 09378 10/21/2014 PRESCRIP TRANSMIT VIA ERX SY CPT-4: G8553 10/06/2014 PRESCRIP TRANSMIT VIA ERX SY CPT-4: G8553 09/21/2014 PRESCRIP TRANSMIT VIA ERX SY CPT-4: G8553 09/02/2014 MICROALBUMIN QUANTITATIVE CPT-4: 81188 08/27/2014 PROTEIN/CREAT URINE WITH RATIO CPT-4: 88370|61727 4 PPPS, subseq visit CPT-4: G0439 08/10/2014 ROUTINE VENIPUNCTURE CPT-4: 75339 08/05/2014 ASSAY OF FREE THYROXINE CPT-4: 61104 08/05/2014 ASSAY THYROID STIM HORMONE CPT-4: 60154 08/05/2014 COMPREHEN METABOLIC PANEL CPT-4: 84976 08/05/2014 COMPLETE CBC W/AUTO DIFF WBC CPT-4: 36253 08/05/2014 LIPID PANEL CPT-4: 30667 08/05/2014 A1C HPLC CPT-4: 67407 08/05/2014 FLUZONE, 5ML (Medicare) CPT-4: Q2038 08/05/2014 ADMIN INFLUENZA VIRUS VAC CPT-4: G0008 08/05/2014 METHYLPREDNISOLONE 40 MG INJ CPT-4: J1030 12/16/2013 TRIAMCINOLONE ACET INJ NOS CPT-4: J3301 12/16/2013 DRAIN/INJECT JOINT/BURSA CPT-4: 82650 12/16/2013 PRESCRIP TRANSMIT VIA ERX SY CPT-4: G8553 10/09/2013 THER/PROPH/DIAG INJ SC/IM CPT-4: 59087 09/18/2013 METHYLPREDNISOLONE 40 MG INJ CPT-4: J1030 09/18/2013 TRIAMCINOLONE ACET INJ NOS CPT-4: J3301 09/18/2013 PRESCRIP TRANSMIT VIA ERX SY CPT-4: G8553 09/18/2013 PRESCRIP TRANSMIT VIA ERX SY CPT-4: G8553 08/13/2013 ROUTINE VENIPUNCTURE CPT-4: 77076 06/25/2013 ASSAY OF FREE THYROXINE CPT-4: 83621 06/25/2013 ASSAY THYROID STIM HORMONE CPT-4: 74402 06/25/2013 COMPREHEN METABOLIC PANEL CPT-4: 76974 06/25/2013 COMPLETE CBC W/AUTO DIFF WBC CPT-4: 63388 06/25/2013 LIPID PANEL CPT-4: 81443 06/25/2013 A1C GLYCOSYLATED HEMOGLOBIN TEST CPT-4: 87740 013 ROUTINE VENIPUNCTURE CPT-4: 08563 04/09/2013 COMPLETE CBC W/AUTO DIFF WBC CPT-4: 57730 04/09/2013 MYCOPLASMA ANTIBODY, IFA CPT-4: 46815M2 04/09/2013 ROUTINE VENIPUNCTURE CPT-4: 85834 02/11/2013 ASSAY OF FREE THYROXINE CPT-4: 59427 02/11/2013 ASSAY THYROID STIM HORMONE CPT-4: 62855 02/11/2013 COMPREHEN METABOLIC PANEL CPT-4: 28604 02/11/2013 COMPLETE CBC W/AUTO DIFF WBC CPT-4: 20822 02/11/2013 VITAMIN B 12 FOLIC ACID CPT-4: 73349|03113 02/11/2013 C-REACTIVE PROTEIN CPT-4: 93105 02/11/2013 A1C GLYCOSYLATED HEMOGLOBIN TEST CPT-4: 84282 013 ASSAY OF BLOOD/URIC ACID CPT-4: 20011 02/11/2013 CEFTRIAXONE SODIUM INJECTION CPT-4: J0696 01/31/2013 THER/PROPH/DIAG INJ SC/IM CPT-4: 06837 01/31/2013 THER/PROPH/DIAG INJ SC/IM CPT-4: 60684 01/31/2013 METHYLPREDNISOLONE 40 MG INJ CPT-4: J1030 01/31/2013 TRIAMCINOLONE ACET INJ NOS CPT-4: J3301 01/31/2013 ROUTINE VENIPUNCTURE CPT-4: 61663 09/19/2012 COMPREHEN METABOLIC PANEL CPT-4: 64508 09/19/2012 LIPID PANEL CPT-4: 33164 09/19/2012 A1C GLYCOSYLATED HEMOGLOBIN TEST CPT-4: 55718 012 PNEUMOCOCCAL VACC 23 OLIVIA IM CPT-4: 35156 07/10/2012 FLUZONE, 5ML (Medicare) CPT-4: Q2038 07/10/2012 ADMIN INFLUENZA VIRUS VAC CPT-4: G0008 07/10/2012 ADMIN PNEUMOCOCCAL VACCINE CPT-4: G0009 07/10/2012 ROUTINE VENIPUNCTURE CPT-4: 26578 05/06/2012 ASSAY OF FREE THYROXINE CPT-4: 76072 05/06/2012 ASSAY THYROID STIM HORMONE CPT-4: 32973 05/06/2012 COMPREHEN METABOLIC PANEL CPT-4: 51069 05/06/2012 COMPLETE CBC W/AUTO DIFF WBC CPT-4: 71446 05/06/2012 LIPID PANEL CPT-4: 06405 05/06/2012 A1C GLYCOSYLATED HEMOGLOBIN TEST CPT-4: 26343 012 IMMUNIZATION ADMIN CPT-4: 05502 02/05/2012 FLUZONE, 5ML (Medicare) CPT-4: Q2038 08/10/2011 ADMIN INFLUENZA VIRUS VAC CPT-4: G0008 08/10/2011 ROUTINE VENIPUNCTURE CPT-4: 75530 07/26/2011 ASSAY OF FREE THYROXINE CPT-4: 95110 07/26/2011 ASSAY THYROID STIM HORMONE CPT-4: 46290 07/26/2011 COMPREHEN METABOLIC PANEL CPT-4: 89694 07/26/2011 COMPLETE CBC W/AUTO DIFF WBC CPT-4: 00542 07/26/2011 LIPID PANEL CPT-4: 57311 07/26/2011 A1C GLYCOSYLATED HEMOGLOBIN TEST CPT-4: 81543 011 ASSAY OF PSA TOTAL CPT-4: 59387 07/26/2011 ROUTINE VENIPUNCTURE CPT-4: 68351 01/19/2011 ASSAY OF NATRIURETIC PEPTIDE CPT-4: 51265 01/19/2011 THER/PROPH/DIAG INJ SC/IM CPT-4: 51832 01/19/2011 CEFTRIAXONE SODIUM INJECTION CPT-4: J0696 01/19/2011 METHYLPREDNISOLONE INJECTION CPT-4: J2930 01/19/2011 THER/PROPH/DIAG INJ SC/IM CPT-4: 79486 01/19/2011 THER/PROPH/DIAG INJ SC/IM CPT-4: 03972 01/18/2011 CEFTRIAXONE SODIUM INJECTION CPT-4: J0696 01/18/2011 METHYLPREDNISOLONE INJECTION CPT-4: J2930 01/18/2011 THER/PROPH/DIAG INJ SC/IM CPT-4: 72556 01/18/2011 THER/PROPH/DIAG INJ SC/IM CPT-4: 80237 12/21/2010 TESTOSTERONE CYPIONAT 100 MG CPT-4: J1070 12/21/2010 ROUTINE VENIPUNCTURE CPT-4: 66840 12/19/2010 TESTOSTERONE TOTAL - MALE CPT-4: 77914 12/19/2010 ROUTINE VENIPUNCTURE CPT-4: 85508 12/07/2010 COMPLETE CBC W/AUTO DIFF WBC CPT-4: 88270 12/07/2010 COMPREHEN METABOLIC PANEL CPT-4: 03458 12/07/2010 LIPID PANEL CPT-4: 52138 12/07/2010 A1C GLYCOSYLATED HEMOGLOBIN TEST CPT-4: 72433 011 ASSAY OF PSA TOTAL CPT-4: 04689 12/07/2010 ROUTINE VENIPUNCTURE CPT-4: 06230 04/05/2010 PRESCRIP TRANSMIT VIA ERX SY CPT-4: G8553 04/05/2010 ROUTINE VENIPUNCTURE CPT-4: 31638 01/13/2010 METHYLPREDNISOLONE INJECTION CPT-4: J2930 12/22/2009 THER/PROPH/DIAG INJ SC/IM CPT-4: 23030 12/22/2009 THER/PROPH/DIAG INJ SC/IM CPT-4: 20783 12/22/2009 CEFTRIAXONE SODIUM INJECTION CPT-4: J0696 12/22/2009 ROUTINE VENIPUNCTURE CPT-4: 32716 12/22/2009 COMPLETE CBC W/AUTO DIFF WBC CPT-4: 95363 12/22/2009 RBC SED RATE, AUTOMATED CPT-4: 70991 12/22/2009 RPR FE/E/EN/L/M 20.1-30.0 CM CPT-4: 08620 12/22/2009 EKG FOR INITIAL PREVENT EXAM CPT-4: G0403 12/22/2009 THER/PROPH/DIAG INJ SC/IM CPT-4: 92872 12/16/2009 KETOROLAC TROMETHAMINE INJ CPT-4: J1885 12/16/2009 [...] 1: 126/68 Code: 8480-6 BMI: 30.2 Code: 41765-1 Heart Rate 1: 92 bpm Height: 6' Respiratory Rate: 22 bpm SpO2: 94% Tempera ture: 36.9 (C) / 98.5 (F) Weight: 223 lbs 08/21/2018 Blood Pressure 1: 160/70 Code: 8480-6 Heart Rate 1: 79 bpm Respiratory Rate: 20 bpm SpO2: 94% Temperature: 36.7 (C) / 98.0 (F) We ight: 226 lbs 8 oz 08/07/2018 Blood Pressure 1: 138/70 Code: 8480-6 BMI: 30.1 Code: 66511-5 Heart Rate 1: 80 bpm Height: 6' Respiratory Rate: 20 bpm SpO2: 94% Tempera ture: 36.9 (C) / 98.5 (F) Weight: 222 lbs 05/23/2018 Blood Pressure 1: 148/66 Code: 8480-6 BMI: 30.0 Code: 23487-1 Heart Rate 1: 96 bpm Height: 6' Respiratory Rate: 22 bpm SpO2: 94% Tempera ture: 37.3 (C) / 99.1 (F) Weight: 221 lbs 05/02/2018 Blood Pressure 1: 146/78 Code: 8480-6 BMI: 29.6 Code: 43712-7 Heart Rate 1: 78 bpm Height: 6' Respiratory Rate: 26 bpm SpO2: 94% Tempera ture: 35.7 (C) / 96.2 (F) Weight: 218 lbs 04/29/2018 Blood Pressure 1: 142/62 Code: 8480-6 BMI: 28.6 Code: 11918-5 Heart Rate 1: 82 bpm Height: 6' Respiratory Rate: 22 bpm SpO2: 98% Tempera ture: 36.4 (C) / 97.6 (F) Weight: 211 lbs 04/22/2018 Blood Pressure 1: 126/64 Code: 8480-6 BMI: 30.0 Code: 65439-1 Heart Rate 1: 96 bpm Height: 6' [...] 1: 144/78 Code: 8480-6 BMI: 30.7 Code: 61405-0 Heart Rate 1: 92 bpm Height: 6' Respiratory Rate: 28 bpm SpO2: 94% Tempera ture: 36.9 (C) / 98.4 (F) Weight: 226 lbs 12/28/2017 Blood Pressure 1: 136/80 Code: 8480-6 Heart Rate 1: 92 bpm Respiratory Rate: 28 bpm SpO2: 94% Temperature: 36.7 (C) / 98.1 (F) 12/21/2017 Blood Pressure 1: 146/84 Code: 8480-6 BMI: 31.1 Code: 28306-4 Heart Rate 1: 84 bpm Height: 6' [...] 1: 142/64 Code: 8480-6 BMI: 31.3 Code: 96344-9 Heart Rate 1: 98 bpm Height: 6' Respiratory Rate: 24 bpm SpO2: 94% Tempera ture: 36.4 (C) / 97.6 (F) Weight: 231 lbs 10/17/2017 Blood Pressure 1: 140/68 Code: 8480-6 BMI: 31.7 Code: 77430-3 Heart Rate 1: 88 bpm Height: 6' Respiratory Rate: 20 bpm SpO2: 94% Tempera ture: 36.8 (C) / 98.3 (F) Weight: 234 lbs 08/02/2017 Blood Pressure 1: 142/80 Code: 8480-6 BMI: 31.1 Code: 91006-0 Heart Rate 1: 86 bpm Height: 6' Respiratory Rate: 20 bpm SpO2: 90% Tempera ture: 35.9 (C) / 96.7 (F) Weight: 229 lbs 07/02/2017 Blood Pressure 1: 146/64 Code: 8480-6 BMI: 29.6 Code: 65264-2 Heart Rate 1: 96 bpm Height: 6' Respiratory Rate: 20 bpm Temperature: 36 .4 (C) / 97.6 (F) Weight: 218 lbs 05/29/2017 Blood Pressure 1: 152/68 Code: 8480-6 BMI: 31.5 Code: 51211-9 Heart Rate 1: 100 bpm Height: 6' Respiratory Rate: 20 bpm SpO2: 92% Tempera ture: 36.9 (C) / 98.4 (F) Weight: 232 lbs 02/01/2017 Blood Pressure 1: 146/64 Code: 8480-6 BMI: 30.7 Code: 68045-3 Heart Rate 1: 76 bpm Height: 6' Respiratory Rate: 20 bpm SpO2: 95% Tempera ture: 36.8 (C) / 98.2 (F) Weight: 226 lbs 01/29/2017 Blood Pressure 1: 146/78 Code: 8480-6 Heart Rate 1: 84 bpm Respiratory Rate: 20 bpm SpO2: 96% Temperature: 36.1 (C) / 97.0 (F) We ight: 226 lbs 12/21/2016 Blood Pressure 1: 126/60 Code: 8480-6 BMI: 30.8 Code: 81012-3 Heart Rate 1: 88 bpm Height: 6' Respiratory Rate: 22 bpm SpO2: 94% Tempera ture: 36.7 (C) / 98.0 (F) Weight: 227 lbs 12/14/2016 Blood Pressure 1: 126/70 Code: 8480-6 BMI: 29.8 Code: 12642-9 Heart Rate 1: 92 bpm Height: 6' Respiratory Rate: 22 bpm SpO2: 93% Tempera ture: 36.8 (C) / 98.2 (F) Weight: 220 lbs 11/14/2016 Blood Pressure 1: 128/62 Code: 8480-6 Heart Rate 1: 100 bpm Respiratory Rate: 20 bpm SpO2: 96% Temperature: 36.6 (C) / 97.8 (F) We ight: 220 lbs 10/31/2016 Blood Pressure 1: 142/60 Code: 8480-6 BMI: 30.1 Code: 16935-2 Heart Rate 1: 112 bpm Height: 6' Respiratory Rate: 24 bpm SpO2: 93% Tempera ture: 37.1 (C) / 98.7 (F) Weight: 222 lbs 10/03/2016 Blood Pressure 1: 136/78 Code: 8480-6 Heart Rate 1: 106 bpm Respiratory Rate: 24 bpm SpO2: 93% Temperature: 36.6 (C) / 97.8 (F) We ight: 221 lbs 09/04/2016 Blood Pressure 1: 112/44 Code: 8480-6 BMI: 30.1 Code: 06106-4 Heart Rate 1: 90 bpm Height: 6' Respiratory Rate: 20 bpm SpO2: 93% Tempera ture: 36.6 (C) / 97.9 (F) Weight: 222 lbs 08/22/2016 Blood Pressure 1: 142/68 Code: 8480-6 BMI: 30.4 Code: 40119-9 Heart Rate 1: 100 bpm Height: 6' Respiratory Rate: 24 bpm SpO2: 93% Tempera ture: 36.7 (C) / 98.1 (F) Weight: 224 lbs 08/10/2016 Blood Pressure 1: 134/60 Code: 8480-6 BMI: 30.2 Code: 22998-2 Heart Rate 1: 76 bpm Height: 6' [...] 1: 122/72 Code: 8480-6 BMI: 30.7 Code: 29286-1 Heart Rate 1: 96 bpm Height: 6' Respiratory Rate: 22 bpm SpO2: 96% Tempera ture: 35.9 (C) / 96.7 (F) Weight: 226 lbs 04/03/2016 Blood Pressure 1: 146/64 Code: 8480-6 BMI: 30.8 Code: 45835-1 Heart Rate 1: 76 bpm Height: 6' Respiratory Rate: 20 bpm Temperature: 36 .8 (C) / 98.2 (F) Weight: 227 lbs 03/02/2016 Blood Pressure 1: 148/60 Code: 8480-6 BMI: 31.1 Code: 09802-8 Heart Rate 1: 80 bpm Height: 6' Respiratory Rate: 22 bpm SpO2: 94% Tempera ture: 36.6 (C) / 97.8 (F) Weight: 229 lbs 02/17/2016 Blood Pressure 1: 132/60 Code: 8480-6 BMI: 31.3 Code: 49821-0 Heart Rate 1: 80 bpm Height: 6' Respiratory Rate: 20 bpm Temperature: 36 .9 (C) / 98.4 (F) Weight: 231 lbs 02/14/2016 Blood Pressure 1: 126/70 Code: 8480-6 BMI: 31.3 Code: 01522-9 Heart Rate 1: 80 bpm Height: 6' Respiratory Rate: 24 bpm SpO2: 95% Tempera ture: 36.9 (C) / 98.5 (F) Weight: 231 lbs 01/31/2016 Blood Pressure 1: 136/60 Code: 8480-6 Heart Rate 1: 76 bpm Respiratory Rate: 22 bpm Temperature: 37.0 (C) / 98.6 (F) Weight: 230 lbs 12/30/2015 Blood Pressure 1: 128/58 Code: 8480-6 BMI: 31.2 Code: 48539-7 Heart Rate 1: 80 bpm Height: 6' Respiratory Rate: 20 bpm Temperature: 36 .8 (C) / 98.2 (F) Weight: 230 lbs 12/16/2015 Blood Pressure 1: 122/60 Code: 8480-6 BMI: 32.0 Code: 57929-4 Heart Rate 1: 84 bpm Height: 6' Respiratory Rate: 24 bpm Temperature: 37 .1 (C) / 98.7 (F) Weight: 236 lbs 12/06/2015 Blood Pressure 1: 162/74 Code: 8480-6 BMI: 32.5 Code: 09690-8 Heart Rate 1: 90 bpm Height: 6' Respiratory Rate: 20 bpm SpO2: 96% Tempera ture: 36.4 (C) / 97.6 (F) Weight: 240 lbs 11/15/2015 Blood Pressure 1: 166/80 Code: 8480-6 BMI: 32.4 Code: 42742-5 Heart Rate 1: 92 bpm Height: 6' Respiratory Rate: 28 bpm Temperature: 36 .5 (C) / 97.7 (F) Weight: 239 lbs 10/05/2015 Blood Pressure 1: 146/76 Code: 8480-6 BMI: 32.4 Code: 78725-5 Heart Rate 1: 88 bpm Height: 6' Respiratory Rate: 28 bpm Temperature: 37 .1 (C) / 98.7 (F) Weight: 239 lbs 07/22/2015 Blood Pressure 1: 144/68 Code: 8480-6 BMI: 31.9 Code: 53708-4 Heart Rate 1: 88 bpm Height: 6' [...] 1: 142/64 Code: 8480-6 BMI: 32.1 Code: 82850-7 Heart Rate 1: 80 bpm Height: 6' Respiratory Rate: 18 bpm Temperature: 36 .4 (C) / 97.6 (F) Weight: 237 lbs 06/07/2015 Blood Pressure 1: 164/58 Code: 8480-6 BMI: 32.1 Code: 51936-7 Heart Rate 1: 88 bpm Height: 6' Respiratory Rate: 20 bpm Temperature: 36 .6 (C) / 97.9 (F) Weight: 237 lbs 06/03/2015 Blood Pressure 1: 152/64 Code: 8480-6 BMI: 32.1 Code: 47702-3 Heart Rate 1: 96 bpm Height: 6' Respiratory Rate: 20 bpm Temperature: 37 .4 (C) / 99.3 (F) Weight: 237 lbs 06/01/2015 Blood Pressure 1: 136/70 Code: 8480-6 BMI: 31.7 Code: 54447-2 Heart Rate 1: 72 bpm Height: 6' Respiratory Rate: 22 bpm SpO2: 94% Tempera ture: 36.6 (C) / 97.9 (F) Weight: 234 lbs 02/25/2015 Blood Pressure 1: 146/80 Code: 8480-6 BMI: 32.4 Code: 71844-6 Heart Rate 1: 84 bpm Height: 6' Respiratory Rate: 28 bpm Temperature: 36 .7 (C) / 98.0 (F) Weight: 239 lbs 10/27/2014 Blood Pressure 1: 168/70 Code: 8480-6 BMI: 32.0 Code: 80703-5 Heart Rate 1: 80 bpm Height: 6' Respiratory Rate: 30 bpm SpO2: 98% Tempera ture: 36.4 (C) / 97.6 (F) Weight: 236 lbs 10/21/2014 Blood Pressure 1: 152/58 Code: 8480-6 BMI: 32.1 Code: 91563-2 Heart Rate 1: 78 bpm Height: 6' Respiratory Rate: 20 bpm Temperature: 37 .8 (C) / 100.1 (F) Weight: 237 lbs 10/06/2014 Blood Pressure 1: 132/64 Code: 8480-6 BMI: 32.5 Code: 21164-4 Heart Rate 1: 88 bpm Height: 6' Respiratory Rate: 32 bpm SpO2: 94% Tempera ture: 36.8 (C) / 98.2 (F) Weight: 240 lbs 09/21/2014 Blood Pressure 1: 134/68 Code: 8480-6 BMI: 32.4 Code: 64658-7 Heart Rate 1: 96 bpm Height: 6' Respiratory Rate: 30 bpm Temperature: 36 .7 (C) / 98.1 (F) Weight: 239 lbs 09/08/2014 Blood Pressure 1: 128/74 Code: 8480-6 BMI: 32.4 Code: 36591-6 Heart Rate 1: 82 bpm Height: 6' Respiratory Rate: 28 bpm SpO2: 93% Tempera ture: 36.6 (C) / 97.8 (F) Weight: 239 lbs 09/02/2014 Blood Pressure 1: 164/78 Code: 8480-6 Heart Rate 1: 86 bpm Respiratory Rate: 22 bpm SpO2: 96% Temperature: 36.1 (C) / 97.0 (F) We ight: 239 lbs 08/10/2014 Blood Pressure 1: 152/60 Code: 8480-6 BMI: 32.8 Code: 01139-8 Heart Rate 1: 80 bpm Height: 6' [...] 1: 146/80 Code: 8480-6 BMI: 33.9 Code: 56573-5 Heart Rate 1: 80 bpm Height: 6' [...] ight: 237 lbs 08/13/2013 Blood Pressure 1: 14878 Code: 8480-6 BMI: 30.5 Code: 64350-4 Heart Rate 1: 84 bpm Height: 6' Respiratory Rate: 28 bpm SpO2: 97% Tempera ture: 36.4 (C) / 97.5 (F) Weight: 225 lbs 08/06/2013 Blood Pressure 1: 158/70 Code: 8480-6 Heart Rate 1: 110 bpm Respiratory Rate: 22 bpm SpO2: 88% Temperature: 39.7 (C) / 103.4 (F) W eight: 07/16/2013 Blood Pressure 1: 148/82 Code: 8480-6 BMI: 31.9 Code: 48719-0 Heart Rate 1: 80 bpm Height: 6' Respiratory Rate: 20 bpm Temperature: 36 .6 (C) / 97.9 (F) Weight: 235 lbs 04/09/2013 Blood Pressure 1: 14278 Code: 8480-6 BMI: 31.5 Code: 33011-2 Heart Rate 1: 88 bpm Height: 6' Respiratory Rate: 32 bpm SpO2: 95% Tempera ture: 37.0 (C) / 98.6 (F) Weight: 232 lbs 02/11/2013 Blood Pressure 1: 14670 Code: 8480-6 Heart Rate 1: 88 bpm Respiratory Rate: 20 bpm Temperature: 36.8 (C) / 98.3 (F) Weight: 230 lbs 01/31/2013 Blood Pressure 1: 128/70 Code: 8480-6 BMI: 31.6 Code: 13499-8 Heart Rate 1: 84 bpm Height: 6' Respiratory Rate: 24 bpm SpO2: 92% Tempera ture: 36.7 (C) / 98.0 (F) Weight: 233 lbs 01/20/2013 Blood Pressure 1: 148/64 Code: 8480-6 BMI: 31.6 Code: 16934-3 Heart Rate 1: 68 bpm Height: 6' Temperature: 36.1 (C) / 97.0 (F) Weight: 233 lbs 12/19/2012 Blood Pressure 1: 128/68 Code: 8480-6 BMI: 32.0 Code: 94043-5 Heart Rate 1: 64 bpm Height: 6' Temperature: 36.7 (C) / 98.0 (F) Weight: 236 lbs 10/21/2012 Blood Pressure 1: 142/64 Code: 8480-6 BMI: 30.9 Code: 89038-2 Heart Rate 1: 74 bpm Height: 6' Temperature: 36.2 (C) / 97.1 (F) Weight: 228 lbs 09/18/2012 Blood Pressure 1: 126/60 Code: 8480-6 BMI: 31.3 Code: 18709-4 Heart Rate 1: 88 bpm Height: 6' Respiratory Rate: 20 bpm Temperature: 36 .5 (C) / 97.7 (F) Weight: 231 lbs 08/28/2012 Blood Pressure 1: 132/68 Code: 8480-6 BMI: 31.5 Code: 10597-9 Heart Rate 1: 92 bpm Height: 6' Respiratory Rate: 30 bpm SpO2: 94% Tempera ture: 37.1 (C) / 98.7 (F) Weight: 232 lbs 07/10/2012 Blood Pressure 1: 118/70 Code: 8480-6 BMI: 30.5 Code: 12537-7 Heart Rate 1: 72 bpm Height: 6' Respiratory Rate: 24 bpm SpO2: 96% Tempera ture: 36.7 (C) / 98.0 (F) Weight: 225 lbs 05/09/2012 Blood Pressure 1: 124/68 Code: 8480-6 BMI: 29.8 Code: 82986-9 Heart Rate 1: 72 bpm Height: 6' Respiratory Rate: 20 bpm Temperature: 36 .8 (C) / 98.2 (F) Weight: 220 lbs 10/02/2011 Blood Pressure 1: 140/82 Code: 8480-6 BMI: 30.7 Code: 27585-8 Heart Rate 1: 68 bpm Height: 6' Temperature: 36.7 (C) / 98.0 (F) Weight: 226 lbs 08/07/2011 Blood Pressure 1: 122/68 Code: 8480-6 BMI: 30.5 Code: 52473-3 Heart Rate 1: 72 bpm Height: 6' [...] 1: 140/78 Code: 8480-6 BMI: 31.9 Code: 17571-0 Heart Rate 1: 84 bpm Height: 6' Temperature: 36.6 (C) / 97.8 (F) Weight: 235 lbs 12/22/2009 Blood Pressure 1: 140/74 Code: 8480-6 BMI: 31.9 Code: 34970-3 Heart Rate 1: 94 bpm Height: 6' SpO2: 92% Temperature: 35.7 (C) / 96.2 (F) Weight: 235 lbs 12/13/2009 Blood Pressure 1: 146/80 Code: 8480-6 BMI: 33.0 Code: 03846-2 Heart Rate 1: 86 bpm Height: 6' [...] shot follow up 05/08/2019 follow up 04/07/2019 [facility] dizziness 03/24/2019 dizziness 03/21/2019 sore throat 03/13/2019 Patient finished zit hromax last night and has one dose of prednisone left follow up 03/10/2019 ER fwup---patient cu rrently taking zithromax, prednisone and breathing treatments every two hours spasms/spasticity 02/26/2019 follow up 02/13/2019 follow up 01/14/2019 [facility] follow up 12/25/2018 cough 12/09/2018 here [...] fighting constantly with her. 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 follow up 05/29/2017 Discuss Low Back [...] nightly. Patient has just been discharged from [place] with Pneumonia. Currently on Levaquin once daily. [...] fwup follow up 03/13/2016 Patient here for [facility] on medication education for insulin [...] 02/25/2015 3mo fwup follow up 10/27/2014 [facility] cough 10/21/2014 follow up 10/06/2014 follow up 09/21/2014 [facility] follow up 09/08/2014 [facility] cough 09/02/2014 well man exam (65+ years) 08/10/2014 lab draw 08/05/2014 flu shot follow up 05/05/2014 6wk fwup follow up 03/24/2014 2wk up shortness of breath 03/10/2014 shoulder pain 12/16/2013 Request back brace w hen working/lifting---chiropractor had recommended he get one to wear shortness of breath 10/09/2013 cough 09/18/2013 follow up 08/13/2013 [facility] cough 08/06/2013 follow up 07/16/2013 lab draw [...] 12/13/2009 Encounters Encounter Performer Location Codes Date ([id number]) OFFICE/OUTPATIENT VISIT EST Diagnosis: Chronic obstructive pulmonary disease, unspecified[ICD10: J44.9] Lita BARAKAT DO [facility] CPT-4: 68647 03/04/2020 ([id number]) OFFICE/OUTPATIENT VISIT EST Diagnosis: Chronic obstructive pulmonary disease, unspecified[ICD10: J44.9] Lita BARAKAT DO [facility] CPT-4: 29591 02/04/2020 ([id number]) OFFICE/OUTPATIENT VISIT EST Diagnosis: Chronic obstructive pulmonary disease with (acute) exacerbation[ICD10: J44.1] Lita BARAKAT DO [facility] CPT- 4: 65483 12/25/2019 ([id number]) OFFICE/OUTPATIENT VISIT EST Diagnosis: Noncompliance with diabetes treatment[ICD10: Z91.19] Diagnosis: Insomnia[ICD10: G47.00] Diagnosis: Pain in right knee[ICD10: M25.561] [facility]: 43013 12/22/2019 ([id number]) OFFICE/OUTPATIENT VISIT EST Diagnosis: Chronic respiratory failure with hypercapnia[ICD10: J96.12] Diagnosis: Chronic airway obstruction, not elsewhere classified[ICD10: J44.9] Diagnosis: Basal cell carcinoma, face[ICD10: C44.310] Lita BARAKAT DO [facility] CPT-4: 53424 11/12/2019 ([id number]) OFFICE/OUTPATIENT VISIT EST Diagnosis: Chronic obstructive pulmonary disease, unspecified[ICD10: J44.9] Diagnosis: Right thyroid nodule[ICD10: E04.1] Lita BARAKAT [facility]ithm[facility] CPT-4: 54642 09/11/2019 ([id number]) OFFICE/OUTPATIENT VISIT EST Diagnosis: Chronic bronchitis[ICD10: J42] 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] Diagnosis: FLU VACCINE[ICD10: Z23] Lita PABLO [facility] CPT-4: 78614 08/07/2019 ([id number]) OFFICE/OUTPATIENT VISIT EST Diagnosis: Chronic obstructive pulmonary disease with (acute) exacerbation[ICD10: J44.1] Autumn BARAKAT [facility] CPT- 4: 91735 07/14/2019 ([id number]) OFFICE/OUTPATIENT VISIT EST Diagnosis: Primary insomnia[ICD10: F51.01] Diagnosis: Dyspepsia and other specified disorders of function of stomach[ICD10: K31.89] Lita BARAKAT DO [facility] CPT-4: 80412 07/01/2019 ([id number]) OFFICE/OUTPATIENT VISIT EST Diagnosis: Epigastric pain[ICD10: R10.13] Diagnosis: Nausea[ICD10: R11.0] Diagnosis: Weight loss[ICD10: R63.4] Lita AREVALO [facility] CPT-4: 63010 06/24/2019 ([id number]) OFFICE/OUTPATIENT VISIT EST Diagnosis: Chronic obstructive pulmonary disease, unspecified[ICD10: J44.9] Diagnosis: Chronic insomnia[ICD10: F51.04] Diagnosis: Anemia[ICD10: D64.9] Diagnosis: Diplopia[ICD10: H53.2] Diagnosis: [place][ICD10: F30.9] Lita BARAKAT [facility] CPT-4: 48583 06/17/2019 ([id number]) NURSE/OUTPATIENT VISIT EST Diagnosis: Vitamin B12 deficiency anemia, unspecified[ICD10: D51.9] Lita BARAKAT DO [facility] CPT-4: 57339 06/10/2019 ([id number]) NURSE/OUTPATIENT VISIT EST Diagnosis: Vitamin B12 deficiency anemia, unspecified[ICD10: D51.9] Lita BARAKAT DO [facility] CPT-4: 72514 06/02/2019 ([id number]) NURSE/OUTPATIENT VISIT EST Diagnosis: Vitamin B12 deficiency anemia, unspecified[ICD10: D51.9] Lita BARAKAT DO [facility] CPT-4: 81002 05/27/2019 ([id number]) NURSE/OUTPATIENT VISIT EST Diagnosis: Vitamin B12 deficiency anemia, unspecified[ICD10: D51.9] Lita BARAKAT DO [facility] CPT-4: 59762 05/12/2019 ([id number]) OFFICE/OUTPATIENT VISIT EST Diagnosis: Restless legs syndrome[ICD10: G25.81] Diagnosis: Primary insomnia[ICD10: F51.01] Diagnosis: Anemia, unspecified[ICD10: D64.9] Diagnosis: Type 2 diabetes mellitus with hyperglycemia[ICD10: E11.65] Diagnosis: Vitamin D deficiency, unspecified[ICD10: E55.9] Lita BARAKAT DO [facility] CPT-4: 53572 05/08/2019 ([id number]) OFFICE/OUTPATIENT VISIT EST Diagnosis: Pain in right knee[ICD10: M25.561] Diagnosis: Restless legs syndrome[ICD10: G25.81] Diagnosis: Insomnia, unspecified[ICD10: G47.00] Lita BARAKAT DO [facility] CPT-4: 91952 04/07/2019 ([id number]) NO CHARGE Diagnosis: Chronic obstructive pulmonary disease with (acute) exacerbation[ICD10: J44.1] Diagnosis: Dizziness and giddiness[ICD10: R42] Diagnosis: Generalized anxiety disorder[ICD10: F41.1] Autumn BARAKAT [facility] CPT-4: 87240 03/24/2019 ([id number]) OFFICE/OUTPATIENT VISIT EST Diagnosis: Chronic obstructive pulmonary disease with (acute) exacerbation[ICD10: J44.1] Diagnosis: Dizziness and giddiness[ICD10: R42] Autumn BARAKAT [facility] CPT-4: 25060 03/21/2019 ([id number]) OFFICE/OUTPATIENT VISIT EST Diagnosis: Candidal stomatitis[ICD10: B37.0] Lita GOODE Daja Ashley BARAKAT [facility] CPT-4: 16614 03/13/2019 ([id number]) OFFICE/OUTPATIENT VISIT EST Diagnosis: Chronic obstructive pulmonary disease with acute lower respiratory infection[ICD10: J44.0] Diagnosis: Restless legs syndrome[ICD10: G25.81] Ltia Jasminelvabrii TADEO MARC Ashley BARAKAT [facility] CPT-4: 47634 03/10/2019 ([id number]) OFFICE/OUTPATIENT VISIT EST Diagnosis: Restless legs syndrome[ICD10: G25.81] Lita Jasminbetty PIEDRA MARC Ashley BARAKAT DO [facility] CPT-4: 40996 02/26/2019 ([id number]) OFFICE/OUTPATIENT VISIT EST Diagnosis: Primary insomnia[ICD10: F51.01] Diagnosis: Chronic obstructive pulmonary disease, unspecified[ICD10: J44.9] Lita BARAKAT DO [facility] CPT-4: 66587 02/13/2019 ([id number]) OFFICE/OUTPATIENT VISIT EST Diagnosis: Chronic obstructive pulmonary disease, unspecified[ICD10: J44.9] Diagnosis: Chronic respiratory failure with hypoxia[ICD10: J96.11] Diagnosis: Chronic respiratory failure with hypercapnia[ICD10: J96.12] Lita BARAKAT DO [facility] CPT-4: 91772 01/14/2019 ([id number]) OFFICE/OUTPATIENT VISIT EST Diagnosis: Chronic respiratory failure with hypoxia[ICD10: J96.11] Diagnosis: Patient's noncompliance with other medical treatment and regimen[ICD10: Z91.19] Diagnosis: Chronic obstructive pulmonary disease with (acute) exacerbation[ICD10: J44.1] Lita ALYLINE Ashley BARAKAT [facility] CPT- 4: 38478 12/25/2018 ([id number]) OFFICE/OUTPATIENT VISIT EST Diagnosis: Essential (primary) hypertension[ICD10: I10] Diagnosis: Type 2 diabetes mellitus with hyperglycemia[ICD10: E11.65] Diagnosis: Hypothyroidism, unspecified[ICD10: E03.9] Diagnosis: Hyperlipidemia, unspecified[ICD10: E78.5] Diagnosis: Acute recurrent maxillary sinusitis[ICD10: J01.01] Ines Banerjee LITA Ashley BARAKAT [facility] CPT-4: 75827 12/09/2018 ([id number]) OFFICE/OUTPATIENT VISIT EST Diagnosis: Candidal stomatitis[ICD10: B37.0] Lita ALYOSCAR Segura Ashley BARAKAT [facility] [facility] CPT-4: 16551 12/05/2018 ([id number]) OFFICE/OUTPATIENT VISIT EST Diagnosis: Acute recurrent sinusitis, unspecified[ICD10: J01.91] Diagnosis: Pain in right knee[ICD10: M25.561] Lita Gasper KEVIN GONZALES Ashley BARAKAT Rithmio [facility] CPT-4: 54161 10/23/2018 ([id number]) OFFICE/OUTPATIENT VISIT EST Diagnosis: Restless legs syndrome[ICD10: G25.81] Diagnosis: Basal cell carcinoma of skin of scalp and neck[ICD10: C44.41] Lita BARAKAT DO [facility] CPT-4: 92520 08/21/2018 ([id number]) OFFICE/OUTPATIENT VISIT EST Diagnosis: Chronic obstructive pulmonary disease with acute lower respiratory infection[ICD10: J44.0] Diagnosis: Restless legs syndrome[ICD10: G25.81] Lita BARAKAT DO [facility] CPT-4: 43649 08/07/2018 ([id number]) OFFICE/OUTPATIENT VISIT EST Diagnosis: Chronic obstructive pulmonary disease with acute lower respiratory infection[ICD10: J44.0] Lita BARAKAT DO [facility] CPT-4: 81563 05/23/2018 ([id number]) OFFICE/OUTPATIENT VISIT EST Diagnosis: Candidal stomatitis[ICD10: B37.0] Lita BARAKAT DO [facility] CPT-4: 94453 05/02/2018 ([id number]) OFFICE/OUTPATIENT VISIT EST Diagnosis: Candidal stomatitis[ICD10: B37.0] Diagnosis: Other retention of urine[ICD10: R33.8] Diagnosis: Chronic obstructive pulmonary disease with acute lower respiratory infection[ICD10: J44.0] Autumn BARAKAT DO [facility] CPT-4: 03319 04/29/2018 ([id number]) OFFICE/OUTPATIENT VISIT EST Diagnosis: Chronic obstructive pulmonary disease with acute lower respiratory infection[ICD10: J44.0] Lita BARAKAT DO [facility] CPT-4: 42222 04/22/2018 ([id number]) OFFICE/OUTPATIENT VISIT EST Diagnosis: Unilateral primary osteoarthritis, right knee[ICD10: M17.11] Diagnosis: Squamous cell carcinoma of skin, unspecified[ICD10: C44.92] Lita BARAKAT DO [facility] CPT-4: 84627 01/28/2018 ([id number]) OFFICE/OUTPATIENT VISIT EST Diagnosis: Pain in right knee[ICD10: M25.561] Diagnosis: 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] Lita BARAKAT DO [facility] CPT-4: 93841 01/23/2018 ([id number]) OFFICE/OUTPATIENT VISIT EST Diagnosis: Urinary tract infection, site not specified[ICD10: N39.0] Diagnosis: Chronic obstructive pulmonary disease with acute lower respiratory infection[ICD10: J44.0] Lita BARAKAT DO [facility] CPT-4: 31025 01/02/2018 ([id number]) OFFICE/OUTPATIENT VISIT EST Diagnosis: Chronic obstructive pulmonary disease with (acute) exacerbation[ICD10: J44.1] Autumn BARAKAT DO [facility] CPT- 4: 95895 12/28/2017 ([id number]) OFFICE/OUTPATIENT VISIT EST Diagnosis: Acute bronchitis, unspecified[ICD10: J20.9] Autumn BARAKAT DO [facility] CPT-4: 26641 12/21/2017 ([id number]) OFFICE/OUTPATIENT VISIT EST Diagnosis: Chronic obstructive pulmonary disease with acute lower respiratory infection[ICD10: J44.0] Diagnosis: Pain in right knee[ICD10: M25.561] Autumn BARAKAT DO [facility] CPT-4: 00201 12/17/2017 ([id number]) OFFICE/OUTPATIENT VISIT EST Diagnosis: Laceration without foreign body of right hand, sequela[ICD10: S61.411S] Diagnosis: Restless legs syndrome[ICD10: G25.81] Lita BARAKAT DO [facility] CPT-4: 28534 10/17/2017 OFFICE/OUTPATIENT VISIT EST Diagnosis: Chronic obstructive pulmonary disease with acute lower respiratory infection[ICD10: J44.0] Autumn BARAKAT DO [facility] CPT-4: 23234 08/02/2017 ([id number]) OFFICE/OUTPATIENT VISIT EST Diagnosis: PNEUMOCOCCAL VACCINE[ICD10: Z23] Lita BARAKAT DO [facility] CPT-4: 81198 07/24/2017 OFFICE/OUTPATIENT VISIT EST Diagnosis: Chronic obstructive pulmonary disease with (acute) exacerbation[ICD10: J44.1] Autumn ManFerdinand GASPER [facility] CPT- 4: 95944 07/02/2017 OFFICE/OUTPATIENT VISIT EST Diagnosis: Low back pain[ICD10: M54.5] Ruchi CurielJosé CRAWFORD Ashley De Los Santos BRANDIN [facility] CPT-4: 40538 05/29/2017 ([id number]) OFFICE/OUTPATIENT VISIT EST Diagnosis: Essential (primary) hypertension[ICD10: I10] Diagnosis: Hypothyroidism, unspecified[ICD10: E03.9] Diagnosis: Dizziness and giddiness[ICD10: R42] Diagnosis: Other abnormality of red blood cells[ICD10: R71.8] Diagnosis: Contracture of muscle, unspecified site[ICD10: M62.40] Lita Jasminelvabrii ALYLITA DonovanFerdinand [facility] CPT-4: 38403 04/17/2017 OFFICE/OUTPATIENT VISIT EST Diagnosis: Pain in left shoulder[ICD10: M25.512] Ruchi Chanel ALIZEOINEL MARC DonovanFerdinand [facility] CPT-4: 16005 01/29/2017 ([id number]) OFFICE/OUTPATIENT VISIT EST Diagnosis: Anemia, unspecified[ICD10: D64.9] Lita Jasminbetty Segura DonovanFerdinand [facility] CPT-4: 53027 12/27/2016 ([id number]) OFFICE/OUTPATIENT VISIT EST Diagnosis: Other fatigue[ICD10: R53.83] Diagnosis: Other iron deficiency anemias[ICD10: D50.8] Lita Jasminbetty CRAWFORD DonovanFerdinand [facility] CPT-4: 98996 12/21/2016 ([id number]) OFFICE/OUTPATIENT VISIT EST Diagnosis: Anemia, unspecified[ICD10: D64.9] Diagnosis: Other fatigue[ICD10: R53.83] Diagnosis: Restless legs syndrome[ICD10: G25.81] Lita TRAN DonovanFerdinand [facility] CPT-4: 82041 12/14/2016 ([id number]) OFFICE/OUTPATIENT VISIT EST Diagnosis: Anemia, unspecified[ICD10: D64.9] Diagnosis: Other abnormality of red blood cells[ICD10: R71.8] Lita CRAWFORD Ashley BARAKAT [facility] CPT-4: 33558 12/12/2016 ([id number]) OFFICE/OUTPATIENT VISIT EST Diagnosis: Pneumonia, unspecified organism[ICD10: J18.9] Diagnosis: Restless legs syndrome[ICD10: G25.81] Magda BARAKAT [facility] CPT-4: 03255 11/14/2016 ([id number]) OFFICE/OUTPATIENT VISIT EST Diagnosis: Candidal stomatitis[ICD10: B37.0] Lita BARAKAT [facility] CPT-4: 18369 10/31/2016 ([id number]) OFFICE/OUTPATIENT VISIT EST Diagnosis: Acute upper respiratory infection, unspecified[ICD10: J06.9] Diagnosis: Personal history of pneumonia (recurrent)[ICD10: Z87.01] Magda ALYLINE Ashley BARAKAT [facility] CPT-4: 45267 10/03/2016 ([id number]) OFFICE/OUTPATIENT VISIT EST Diagnosis: Restless legs syndrome[ICD10: G25.81] Diagnosis: Insomnia, unspecified[ICD10: G47.00] Magda ALY JESSICA Ashley BARAKAT [facility] CPT-4: 75771 09/04/2016 ([id number]) OFFICE/OUTPATIENT VISIT EST Diagnosis: Restless legs syndrome[ICD10: G25.81] Diagnosis: Primary insomnia[ICD10: F51.01] Lita BARAKAT [facility] CPT-4: 93577 08/10/2016 OFFICE/OUTPATIENT VISIT EST Diagnosis: Toxic gastroenteritis and colitis[ICD10: K52.1] Diagnosis: Dizziness and giddiness[ICD10: R42] Diagnosis: Headache[ICD10: R51] Diagnosis: Restless legs syndrome[ICD10: G25.81] Lita BARAKAT [facility] CPT-4: 30249 07/06/2016 ([id number]) OFFICE/OUTPATIENT VISIT EST Diagnosis: Chest pain, unspecified[ICD10: R07.9] Diagnosis: Dyspnea, unspecified[ICD10: R06.00] Magda Toth ELLIS CONDE Ashley BARAKAT [facility] CPT-4: 94724 06/22/2016 ([id number]) OFFICE/OUTPATIENT VISIT EST 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] Diagnosis: PNEUMOCOCCAL VACCINE[ICD10: Z23] Diagnosis: FLU VACCINE[ICD10: Z23] Lita [facility] CPT-4: 12385 06/13/2016 ([id number]) OFFICE/OUTPATIENT VISIT EST Diagnosis: Chest pain, unspecified[ICD10: R07.9] Diagnosis: Other forms of dyspnea[ICD10: R06.09] Diagnosis: Shortness of breath[ICD10: R06.02] Diagnosis: Other fatigue[ICD10: R53.83] Magda [facility] CPT[facility]: 61467 06/01/2016 ([id number]) OFFICE/OUTPATIENT VISIT EST Diagnosis: Unspecified hearing loss, left ear[ICD10: H91.92] Diagnosis: Other specified disorders of Eustachian tube, left ear[ICD10: H69.82] Magda [facility] CPT[facility]: 37803 11/2015 ([id number]) OFFICE/OUTPATIENT VISIT EST Diagnosis: Impacted cerumen, bilateral[ICD10: H61.23] Diagnosis: DM W/O COMPLICATION TYPE I, 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: E10.9] Diagnosis: Generalized anxiety disorder[ICD10: F41.1] [facility]ita [facility]: 41786 04/03/2016 ([id number]) OFFICE/OUTPATIENT VISIT EST Diagnosis: 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] Lita [facility] CPT - 4: 75703 03/13/2016 ([id number]) OFFICE/OUTPATIENT VISIT EST Diagnosis: Type 2 diabetes mellitus with hyperglycemia[ICD10: E11.65] Diagnosis: Hyperlipidemia, unspecified[ICD10: E78.5] Diagnosis: Essential (primary) hypertension[ICD10: I10] Diagnosis: Chronic obstructive pulmonary disease, unspecified[ICD10: J44.9] Diagnosis: Testicular hypofunction[ICD10: E29.1] Diagnosis: Male erectile dysfunction, unspecified[ICD10: N52.9] Diagnosis: Anemia, unspecified[ICD10: D64.9] Lita Barakat RUSSELOSCAR BARAKAT Rithmio [facility] CPT-4: 01662 03/06/2016 ([id number]) OFFICE/OUTPATIENT VISIT EST Diagnosis: Type 2 diabetes mellitus with hyperglycemia[ICD10: E11.65] Diagnosis: Hyperlipidemia, unspecified[ICD10: E78.5] Diagnosis: Chronic obstructive pulmonary disease, unspecified[ICD10: J44.9] Diagnosis: Male erectile dysfunction, unspecified[ICD10: N52.9] Lita BARAKAT [facility] CPT-4: 52504 03/02/2016 ([id number]) OFFICE/OUTPATIENT VISIT EST Diagnosis: Pain in right foot[ICD10: M79.671] Magda GONZALES Ashley BARAKAT DO [facility] CPT-4: 67186 02/14/2016 OFFICE/OUTPATIENT VISIT EST Diagnosis: Generalized anxiety disorder[ICD10: F41.1] Lita BARAKAT [facility] CPT-4: 40232 01/31/2016 ([id number]) OFFICE/OUTPATIENT VISIT EST Diagnosis: Generalized anxiety disorder[ICD10: F41.1] Lita BARAKAT DO [facility] CPT-4: 42478 12/30/2015 ([id number]) OFFICE/OUTPATIENT VISIT EST Diagnosis: Localized swelling, mass and lump, neck[ICD10: R22.1] Lita BARAKAT DO [facility] CPT-4: 06507 12/16/2015 OFFICE/OUTPATIENT VISIT EST Diagnosis: Localized enlarged lymph nodes[ICD10: R59.0] Diagnosis: Otalgia, left ear[ICD10: H92.02] Stephanie EspinozaAshleyisabella BARAKAT DO [facility] CPT-4: 31405 12/06/2015 OFFICE/OUTPATIENT VISIT EST Diagnosis: Localized enlarged lymph nodes[ICD10: R59.0] Diagnosis: Squamous cell carcinoma of skin, unspecified[ICD10: C44.92] Diagnosis: Actinic keratosis[ICD10: L57.0] Stephanie AlexisAshleyrachellejose LITA Ashley BARAKAT DO [facility] CPT-4: 32841 11/15/2015 OFFICE/OUTPATIENT VISIT EST Diagnosis: Cellulitis of left lower limb[ICD10: L03.116] Diagnosis: Encounter for examination and observation for other specified reasons[ICD10: Z04.8] Diagnosis: Chronic obstructive pulmonary disease, unspecified[ICD10: J44.9] Stephanie BARAKAT DO [facility] CPT-4: 88533 07/22/2015 OFFICE/OUTPATIENT VISIT EST Diagnosis: Other specified joint disorders, left knee[ICD10: M25.862] Diagnosis: Cellulitis of left lower limb[ICD10: L03.116] Diagnosis: Other fatigue[ICD10: R53.83] Diagnosis: Hyperlipidemia, unspecified[ICD10: E78.5] Stephanie BARAKAT DO [facility] CPT-4: 67266 07/01/2015 OFFICE/OUTPATIENT VISIT EST Diagnosis: Pain in left knee[ICD10: M25.562] Diagnosis: Cellulitis of left lower limb[ICD10: L03.116] Diagnosis: Other specified joint disorders, left knee[ICD10: M25.862] Stephanie BARAKAT Rithmio [facility] CPT-4: 31795 06/28/2015 OFFICE/OUTPATIENT VISIT EST Diagnosis: PREPATELLAR BURSITIS[ICD9: 726.65] Diagnosis: Cellulitis of knee, left[ICD9: 682.6] Stephanie BARAKAT Rithmio [facility] CPT-4: 03938 06/09/2015 ([id number]) OFFICE/OUTPATIENT VISIT EST Diagnosis: PREPATELLAR BURSITIS[ICD9: 726.65] Diagnosis: Cellulitis of knee, left[ICD9: 682.6] Lita BARAKAT Rithmio [facility] CPT-4: 17638 06/07/2015 OFFICE/OUTPATIENT VISIT EST Diagnosis: Cellulitis of knee, left[ICD9: 682.6] Stephanie BARAKAT DO [facility] CPT-4: 96500 06/03/2015 ([id number]) OFFICE/OUTPATIENT VISIT EST Diagnosis: DM W/O COMPLICATION TYPE II, UNCONTROLLED[ICD9: 250.02] Diagnosis: COPD[ICD9: 496] Lita BARAKAT DO [facility] CPT- 4: 55955 06/01/2015 ([id number]) OFFICE/OUTPATIENT VISIT EST Diagnosis: COPD[ICD9: 496] Diagnosis: DYSPNEA[ICD9: 786.09] Diagnosis: DM W/O COMPLICATION TYPE II, UNCONTROLLED[ICD9: 250.02] Diagnosis: Actinic keratosis[ICD9: 702.0] Lita BARAKAT DO [facility] CPT-4: 54563 02/25/2015 ([id number]) OFFICE/OUTPATIENT VISIT EST Diagnosis: ASTHMA NOS[ICD9: 493.90] Diagnosis: COPD[ICD9: 496] Diagnosis: DM W/O COMPLICATION TYPE II, UNCONTROLLED[ICD9: 250.02] Lita BARAKAT DO [facility] CPT-4: 27917 10/27/2014 OFFICE/OUTPATIENT VISIT EST Diagnosis: DYSPNEA[ICD9: 786.09] Diagnosis: COPD[ICD9: 496] Lita BARAKAT [facility] CPT- 4: 40962 10/06/2014 ([id number]) OFFICE/OUTPATIENT VISIT EST Diagnosis: PNEUMONIA, ORGANISM[ICD9: 486] Diagnosis: COPD[ICD9: 496] Diagnosis: DYSPNEA[ICD9: 786.09] Ltia BARAKAT DO [facility] CPT-4: 85285 09/21/2014 OFFICE/OUTPATIENT VISIT EST Diagnosis: PNEUMONIA, ORGANISM[ICD9: 486] Diagnosis: DYSPNEA[ICD9: 786.09] Diagnosis: COUGH[ICD9: 786.2] Stephanie BARAKAT DO [facility] CPT-4: 47246 09/08/2014 OFFICE/OUTPATIENT VISIT EST Diagnosis: COPD with exacerbation[ICD9: 491.21] Diagnosis: COUGH[ICD9: 786.2] Diagnosis: DYSPNEA[ICD9: 786.09] Stephanie BARAKAT DO [facility] CPT-4: 74750 09/02/2014 ([id number]) OFFICE/OUTPATIENT VISIT EST Diagnosis: DM W/O COMPLICATION TYPE II, UNCONTROLLED[ICD9: 250.02] Lita [facility]: 42260 08/27/2014 ([id number]) OFFICE/OUTPATIENT VISIT EST Diagnosis: DM W/O COMPLICATION TYPE II, UNCONTROLLED[ICD9: 250.02] Diagnosis: HYPERLIPIDEMIA NEC/NOS[ICD9: 272.4] Diagnosis: HYPERTENSION[ICD9: 401.9] Diagnosis: COPD[ICD9: 496] Diagnosis: FLU VACCINE[ICD10: Z23] Lita [facility] CPT-4: 97924 08/05/2014 ([id number]) OFFICE/OUTPATIENT VISIT EST Diagnosis: COPD[ICD9: 496] Diagnosis: Lumbar degenerative disc disease[ICD9: 722.52] Lita BARAKAT [facility] CPT-4: 52097 05/05/2014 OFFICE/OUTPATIENT VISIT EST Diagnosis: DYSPNEA[ICD9: 786.09] Diagnosis: COPD[ICD9: 496] Lita [facility] CPT- 4: 20504 03/24/2014 ([id number]) OFFICE/OUTPATIENT VISIT EST Diagnosis: COPD[ICD9: 496] Diagnosis: DYSPNEA[ICD9: 786.09] Lita [facility] CPT-4: 83843 03/10/2014 OFFICE/OUTPATIENT VISIT EST Diagnosis: Subacromial bursitis[ICD9: 726.19] Diagnosis: Chronic low back pain[ICD9: 724.2] Diagnosis: Lumbar degenerative disc disease[ICD9: 722.52] Lita ALYLINE Ashley [facility] CPT-[facility]: 60621 12/16/2013 ([id number]) OFFICE/OUTPATIENT VISIT EST Diagnosis: PHARYNGITIS, ACUTE[ICD9: 462] Diagnosis: COPD[ICD9: 496] Lita ALYLINE Ashley [facility] CPT- 4: 78897 10/09/2013 OFFICE/OUTPATIENT VISIT EST Diagnosis: COPD[ICD9: 496] Diagnosis: Acute exacerbation of chronic obstructive pulmonary disease (COPD)[ICD9: 491.21] Ruchi Buchanan LITA DonovanFerdinand [facility] CPT-[facility]: 75671 09/18/2013 ([id number]) OFFICE/OUTPATIENT VISIT EST Diagnosis: PNEUMONIA, ORGANISM[ICD9: 486] Diagnosis: DM W/O COMPLICATION TYPE II[ICD9: 250.00] Lita [facility] CPT-4: 85422 08/13/2013 ([id number]) OFFICE/OUTPATIENT VISIT EST Diagnosis: DM W/O COMPLICATION TYPE II, UNCONTROLLED[ICD9: 250.02] Diagnosis: HYPERLIPIDEMIA NEC/NOS[ICD9: 272.4] Diagnosis: HYPERTENSION[ICD9: 401.9] Diagnosis: DYSPNEA[ICD9: 786.09] Diagnosis: Family history of CABG[ICD9: V17.49] Lita [facility] CPT-4: 30008 07/16/2013 ([id number]) OFFICE/OUTPATIENT VISIT EST Diagnosis: DM W/O COMPLICATION TYPE II, UNCONTROLLED[ICD9: 250.02] Diagnosis: HYPERLIPIDEMIA NEC/NOS[ICD9: 272.4] Diagnosis: HYPERTENSION[ICD9: 401.9] Lita [facility] CPT[facility]: 85324 06/25/2013 OFFICE/OUTPATIENT VISIT EST Diagnosis: COUGH[ICD9: 786.2] Diagnosis: COPD[ICD9: 496] [facility]: 09358 04/09/2013 ([id number]) OFFICE/OUTPATIENT VISIT EST Diagnosis: Muscle spasm[ICD9: 728.85] Diagnosis: ARTHRALGIA-MULTIPLE SITES[ICD9: 719.49] Lita [facility] CPT-4: 28083 02/11/2013 OFFICE/OUTPATIENT VISIT EST Diagnosis: COPD with exacerbation[ICD9: 491.21] Diagnosis: BRONCHITIS, ACUTE[ICD9: 466.0] Ruchi [facility] CPT-4: 29101 01/31/2013 OFFICE/OUTPATIENT VISIT EST Diagnosis: COUGH[ICD9: 786.2] Diagnosis: PHARYNGITIS, ACUTE[ICD9: 462] Diagnosis: SINUSITIS, ACUTE[ICD9: 461.9] Lita [facility] CPT-4: 12037 01/20/2013 OFFICE/OUTPATIENT VISIT EST Diagnosis: DIZZINESS/VERTIGO[ICD9: 780.4] [facility]: 55250 12/19/2012 OFFICE/OUTPATIENT VISIT EST Diagnosis: Skin lesion of left arm[ICD9: 709.9] Diagnosis: Otitis externa[ICD9: 380.10] Diagnosis: PHARYNGITIS, ACUTE[ICD9: 462] [facility]: 81470 10/21/2012 ([id number]) OFFICE/OUTPATIENT VISIT EST Diagnosis: DM W/O COMPLICATION TYPE II, UNCONTROLLED[ICD9: 250.02] Diagnosis: HYPERLIPIDEMIA NEC/NOS[ICD9: 272.4] Diagnosis: HYPERTENSION[ICD9: 401.9] Lita Ramirez [facility] CPT-4: 08709 09/19/2012 ([id number]) OFFICE/OUTPATIENT VISIT EST Diagnosis: DM W/O COMPLICATION TYPE II, UNCONTROLLED[ICD9: 250.02] Diagnosis: HYPERLIPIDEMIA NEC/NOS[ICD9: 272.4] Diagnosis: COPD[ICD9: 496] Lita Ramirez [facility] CPT- 4: 84545 09/18/2012 ([id number]) OFFICE/OUTPATIENT VISIT EST Diagnosis: BRONCHITIS, ACUTE[ICD9: 466.0] Diagnosis: SINUSITIS, ACUTE[ICD9: 461.9] Lita Ramirez [facility] CPT-4: 17144 08/28/2012 ([id number]) OFFICE/OUTPATIENT VISIT EST Diagnosis: COPD[ICD9: 496] Diagnosis: DYSPNEA[ICD9: 786.09] Diagnosis: VAC STREP PNEUMONIAE-FLU (Medicare)[ICD9: V06.6] Lita Ramirez [facility] CPT-4: 02155 07/10/2012 ([id number]) OFFICE/OUTPATIENT VISIT EST Diagnosis: DM W/O COMPLICATION TYPE II, UNCONTROLLED[ICD9: 250.02] Diagnosis: HYPERTENSION[ICD9: 401.9] Diagnosis: HYPERLIPIDEMIA NEC/NOS[ICD9: 272.4] Diagnosis: DIZZINESS/VERTIGO[ICD9: 780.4] Lita [facility]ER [facility] CPT-4: 80209 05/09/2012 ([id number]) OFFICE/OUTPATIENT VISIT EST Diagnosis: DM W/O COMPLICATION TYPE II, UNCONTROLLED[ICD9: 250.02] Diagnosis: HYPERLIPIDEMIA NEC/NOS[ICD9: 272.4] Diagnosis: HYPERTENSION[ICD9: 401.9] Diagnosis: MALAISE AND FATIGUE[ICD9: 780.79] Lita Archerelvabrii ARCHERNDER [facility] CPT-4: 85827 05/06/2012 OFFICE/OUTPATIENT VISIT EST Diagnosis: COUGH[ICD9: 786.2] Diagnosis: SINUSITIS, ACUTE[ICD9: 461.9] Diagnosis: PHARYNGITIS, ACUTE[ICD9: 462] Lita BARAKAT DO [facility] CPT-4: 39006 10/02/2011 OFFICE/OUTPATIENT VISIT EST Diagnosis: DM W/O COMPLICATION TYPE II, UNCONTROLLED[ICD9: 250.02] Diagnosis: HYPERLIPIDEMIA NEC/NOS[ICD9: 272.4] Diagnosis: HYPERTENSION[ICD9: 401.9] Diagnosis: COPD[ICD9: 496] Lita Jasminbetty LITA SFerdinand [facility]CHERNDER [facility] CPT- 4: 19773 08/07/2011 OFFICE/OUTPATIENT VISIT EST Lita Gasper Man. JASMIN NDER [facility] CPT- 4: 69068 04/03/2011 ([id number]) OFFICE/OUTPATIENT VISIT EST Lita HERRMANNDeena PALACIOS S. ORENDER DO [facility] CPT-4: 47602 01/18/2011 ([id number]) OFFICE/OUTPATIENT VISIT EST Lita Jasminelvabrii EKATERINA SUZANNE SFerdinand ORENDER DO [facility] CPT-4: 61806 12/19/2010 ([id number]) OFFICE/OUTPATIENT VISIT, EST Lita HOLMAN S. ORENDER DO [facility] CPT-4: 20583 04/05/2010 ([id number]) OFFICE/OUTPATIENT VISIT, EST Lita Jasminbetty HOLMAN S. ORENDER DO [facility] CPT-4: 34350 01/13/2010 ([id number]) OFFICE/OUTPATIENT VISIT, SUZANNE VALERIO CPT-4: 76890 12/23/2009 ([id number]) OFFICE/OUTPATIENT VISIT, EST Lita VALERIO CPT-4: 95884 12/22/2009 ([id number]) OFFICE/OUTPATIENT VISIT, SUZNANE VALERIO CPT-4: 11959 12/13/2009 Plan of Care Planned Activity Notes Codes Status Date Visit Diagnosis Plan: Chronic obstructive pulmonary di sease, unspecified Discussion: Add Daliresp 250mcg daily Fwup 4 weeks ICD-9 : 496 ICD-10 : J44.9 03/04/2020 Appointment: Lita Barakat WPtel: [address] [place], [place] [phone] US FOLLOW UP 03/04/2020 Visit Diagnosis Plan: [...] : J44.9 02/04/2020 Appointment: Lita Barakat WPtel: [address] [place], [place] [phone] US MEDICATION REVIEW 02/04/2020 Visit Diagnosis Plan: Chronic obstructiv e pulmonary disease with (acute) exacerbation Discussion: Solumedrol 125mg IM Continue SVNs every 4hrs Prednisone for 1 week COVID-19 precautions ICD-9 : 491.21 ICD-10 : J44.1 12/25/2019 Appointment: Lita Barakat WPtel: [address] [place], [place] [phone] US FOLLOW UP 12/25/2019 Patient Education: prednisone- [employer] Coupon [id number] https://www.[employer]/samplemd/resources/getResource/61/[email or web address] Completed 12/25/2019 Visit Diagnosis Plan: Noncompliance with [...] M25.561 12/22/2019 Appointment: Lita Barakat WPtel[facility] [phone] [facility] [place] [place] 12/22/2019 Patient Education: baclofen- [employer] Coupon [id number] https://www.[employer]/samplemd/resources/getResource/61/[email or web address] Completed 12/22/2019 Visit Diagnosis Plan: Chronic respiratory [...] C44.310 11/12/2019 Appointment: Lita Barakat WPtel[facility] [phone] [facility] [place] AC[place] ILLNESS 11/12/2019 Care Plan: Referral Order SNOMED-CT : 30 [id number] Pending 11/12/2019 Care Plan: Referral Order SNOMED-CT : 30 [id number] Pending 11/12/2019 Visit Diagnosis Plan: Right thyroid nodule Discussion: Check thyroid US ICD-9 : 241.0 ICD-10 : E04.1 09/11/2019 Visit Diagnosis Plan: Chronic obstructive pulmonary di sease, unspecified Discussion: Start Pulmonary Rehab Reviewed results of CT of chest ordered by pulmonology Follow Up: 3 months ICD-9 : 496 ICD-10 : J44.9 09/11/2019 Appointment: Lita Barakat WPtel: [address] [place] [address] MEDICATION REVIEW 09/11/2019 Care Plan: US EXAM OF HEAD AND NECK LOIN C : 10166-9 Pending 09/11/2019 Visit Diagnosis Plan: Chronic bronchitis Discussion: A ugmentin for 10 days ICD-9 : 491.9 ICD-10 : J42 08/07/2019 Appointment: Lita Barakat WPtel: [address] [place] [address] ACUTE ILLNESS 08/07/2019 Visit Diagnosis Plan: Chronic [...] him that overuse of symbicort can cause manager terminal damage and the albuterol is to be used every 4 hours as needed. call office later this week with worsening or no improvement ICD-9 : 491.21 ICD-10 : J44.1 07/14/2019 Appointment: Autumn Oneil [address] [place], [place] [phone] ACUTE ILLNESS 07/14/2019 Visit Diagnosis Plan: [...] : F51.01 07/01/2019 Appointment: Lita Barakat WPtel: [address] [place], [place] [phone] US FOLLOW UP 07/01/2019 Care Plan: CT ABDOMEN W/O DYE LOINC : 36 103-0 Pending 07/01/2019 Care Plan: Referral Order SNOMED-CT : 30 [id number] Pending 07/01/2019 Visit Diagnosis Plan: Weight loss [...] : R10.13 06/24/2019 Appointment: Lita Barakat WPtel: [address] [place], [place] [id number] ACUTE ILLNESS 06/24/2019 Patient Education: Seroquel- [employer] Coupon [id number] [email or web address] Completed 06/24/2019 Patient Education: ondansetron HCl- [employer] Coupon [id number] [email or web address] Completed 06/24/2019 Care Plan: US EXAM ABDOM COMPLETE LOINC : 09857-9 Pending 06/24/2019 Visit Diagnosis Plan: Chronic insomnia [...] : H53.2 06/17/2019 Appointment: Lita Barakat [facility]: [address] [place] [address] US FOLLOW UP 06/17/2019 Appointment: Lita Barakat [facility]: [address] [place] [address] US INJECTION 06/10/2019 Appointment: Lita Barakat [facility]: [address] [place] [address] US INJECTION 06/02/2019 Appointment: Lita Barakat [facility]: [address] [place] [address] US INJECTION 05/27/2019 Appointment: Lita Barakat [facility]: [address] [place] [address] US INJECTION 05/12/2019 Visit Diagnosis Plan: Anemia, [...] E55.9 05/08/2019 Appointment: Lita Barakat [facility]: [address] [place], [place] [phone] FOLLOW UP 05/08/2019 Visit Diagnosis Plan: Pain in right knee Discussion: S top tramadol and tylenol q HS Trial of Hydrocodone 10/325mg po q HS Recheck 1month ICD-9 : 719.46 ICD-10 : M25.561 04/07/2019 Appointment: Lita Barakat WPtel: [address] [place], [place] [phone] Hospital Follow Up 04/07/2019 Visit Diagnosis Plan: [...] ICD-10 : F41.1 03/24/2019 Appointment: Autumn Oneil [address] [place], [place] [phone] ACUTE ILLNESS 03/24/2019 Patient Education: hydroxyzine HCl- [employer] Coupon [id number] Completed 03/24/2019 Patient Education: pantoprazole- [employer] Coupon [id number] Completed 03/24/2019 Visit Diagnosis Plan: Chronic obstructiv e pulmonary disease with (acute) exacerbation Discussion: 90 mg solumedrol given in of fice. patient's portable oxygen tank was empty. [id number] patient on importance of monitoring oxygen tank [...] ICD-10 : R42 03/21/2019 Appointment: Autumn Oneil [address] [place] [address] ACUTE ILLNESS 03/21/2019 Patient Education: ipratropium-albuterol- [employer] C taj [id number] https://www.BioDtech.com/samplemd/resources/getResource/61/[email or web address]-w9c0-0v2h-03 Completed 03/21/2019 Visit Diagnosis Plan: Chronic obstructiv e pulmonary disease with (acute) exacerbation Discussion: Solumedrol now Use SVNs with duoneb at least q4hrs Patient is supposed to be on continuous oxygen but not wearing ICD-9 : 491.21 ICD-10 : J44.1 03/13/2019 Visit Diagnosis Plan: Candidal stomatitis Discussion: Diflucan and Nystatin susp ICD-9 : 112.0 ICD-10 : B37.0 03/13/2019 Appointment: Lita Barakat WPtel: [address] [id number] ACUTE ILLNESS 03/13/2019 Patient Education: losartan- [employer] Coupon [id number] Completed 03/13/2019 Patient Education: nystatin- [employer] Coupon [id number] Completed 03/13/2019 Patient Education: fluconazole- [employer] Coupon [id number] Completed 03/13/2019 Visit Diagnosis Plan: Chronic obstructiv [...] G25.81 03/10/2019 Appointment: Lita Barakat WPtel: [address] [phone] ACUTE ILLNESS 03/10/2019 Visit Diagnosis Plan: Restless legs syndrome Discussio n: Stop requip Increase sinemet to TID Add children's chewable MV with iron BID Add magnesium oxide 400mg daily Add Lyrica 75mg po q HS Stop trazadone Recheck 3 weeks Follow Up: 3 weeks ICD-9 : 333.94 ICD-10 : G25.81 02/26/2019 Appointment: Lita Barakat WPtel: [facility] ACUTE ILLNESS 02/26/2019 Visit Diagnosis Plan: Primary insomnia Discussion: Tri al of doxepin 10-20mg po q HS prn sleep ICD-9 : 780.52 ICD-10 : F51.01 02/13/2019 Visit Diagnosis Plan: Chronic obstructive pulmonary di sease, unspecified Discussion: Stable Discussed trip to [place]--will get oxygen setup through [facility] ICD-9 : 496 ICD-10 : J44.9 02/13/2019 Appointment: Lita Barakat WPtel: [facility]4 [facility] FOLLOW UP 02/13/2019 Patient Education: doxepin- [employer] Coupon [id number] https://www.BioDtech.GenomeQuest/[facility]/resources/getResource/61/48z4o62t-94rg-633h-8p Completed 02/13/2019 Appointment: Lita Barakat WPtel: [address] [place] [address] US CANCELED 01/20/2019 Visit Diagnosis Plan: Chronic obstructive pulmonary di sease, unspecified Discussion: Stable on oxygen Given Symbicort samples Follow Up: 1 months ICD-9 : 496 ICD-10 : J44.9 01/14/2019 Appointment: Lita Barakat WPtel: [address] [place] [address] Follow Up 01/14/2019 Visit Diagnosis Plan: Chronic [...] : J96.11 12/25/2018 Appointment: Lita Barakat WPtel: [address] [place] [address] Follow Up 12/25/2018 Appointment: Lita Barakat WPtel: [address] [place] [address] US CANCELED 12/23/2018 Appointment: Ines Banerjee [address] [place] [address] [place] CANCELED 12/20/2018 Visit Diagnosis Plan: Acute [...] : I10 12/09/2018 Appointment: Ines Banerjee [facility] [address] LAB 12/09/2018 Patient Education: cefdinir- [employer] Coupon [id number] https://www.ParcelPoint/[facility]/resources/getResource/61/x5159h8q-33zi-0027-18 Completed 12/09/2018 Visit Diagnosis Plan: Candidal stomatitis Discussion: Diflucan for 5 days Hold atorvastatin while taking ICD-9 : 112.0 ICD-10 : B37.0 12/05/2018 Appointment: Lita Barakat WPtel: [address] [place] [address] ACUTE ILLNESS 12/05/2018 Patient Education: fluconazole- [employer] Coupon [id number] https://www.ParcelPoint/[facility]/resources/getResource/61/9y152y70-5te4-01l9-38 Completed 12/05/2018 Appointment: Lita Barakat WPtel: [address] [place] [address] NO SHOW 11/11/2018 Visit Plan: Saline nasal [...] : J01.91 10/23/2018 Appointment: Lita Barakat WPtel: [address] [place] [address] ACUTE ILLNESS 10/23/2018 Patient Education: prednisone- [employer] Coupon [id number] https://www.BioDtech.GenomeQuest/samplemd/resources/getResource/61/xt4bs096-edca-6024-46 Completed 10/23/2018 Care Plan: A1C HPLC LOINC : 89194-5 Pending 09/10/2018 Care Plan: COMPREHEN METABOLIC PANEL [place] NC : 46529-3 Pending 09/10/2018 Care Plan: CBC Pending 09/10/2018 [...] : G25.81 08/21/2018 Appointment: Lita Barakat WPtel: [address] [place] [address] ACUTE ILLNESS 08/21/2018 Care Plan: Referral Order SNOMED-CT : 30 3073224 Pending 08/21/2018 Visit Diagnosis Plan: Chronic obstructiv [...] : G25.81 08/07/2018 Appointment: Lita Barakat WPtel: [address] [place] [address] LM FOLLOW UP 08/07/2018 Appointment: Lita Barakat WPtel: [address] [place] [address] 07/18/18 1210---see note in chart (km) CANCELED 07/18/2018 Visit Diagnosis Plan: Chronic obstructiv e pulmonary disease with acute lower respiratory infection Discussion: Solumedrol 125mg IM Change t o trelagy 1 inhalation daily Use SVNs with albuterol q4hrs To ER this weekend if worsens Monitor weight/swelling ICD-9 : 496 ICD-10 : J44.0 05/23/2018 Appointment: Lita Barakat WPtel: [address] [facility] ACUTE ILLNESS 05/23/2018 Patient Education: Patient Medication Summary Completed 05/23/2018 Visit Diagnosis Plan: Candidal stomatitis Discussion: Diflucan for 7 more days--hold atrovastatin while taking ICD-9 : 112.0 ICD-10 : B37.0 05/02/2018 Appointment: Lita Barakat WPtel: [facility] [facility] FOLLOW UP 05/02/2018 Patient Education: Patient Medication [...] ICD-10 : J44.0 04/29/2018 Appointment: Autumn Oneil [address] [place], [place] [address] ACUTE ILLNESS 04/29/2018 Patient Education: Patient Medication [...] : J44.0 04/22/2018 Appointment: Lita Barakat WPtel: [address] [place], [place] [phone] Hospital Follow Up 04/22/2018 Patient Education: Patient Medication Summary Completed 04/22/2018 Appointment: Lita Barakat WPtel: [facility]4 [facility] 04/09/18 1640---see message in chart [...] : M17.11 01/28/2018 Appointment: Lita Barakat WPtel: [address] [place] [address] ACUTE ILLNESS 01/28/2018 Patient Education: Patient Medication Summary Completed 01/28/2018 Care Plan: Referral Order SNOMED-CT : 30 6584595 Pending 01/28/2018 Care Plan: Referral Order SNOMED-CT : 30 8140293 Pending 01/28/2018 Visit Diagnosis Plan: Functional dyspepsia Discussion: Protonix Call in 1 week on how doing ICD-9 : 536.8 ICD-10 : K30 01/23/2018 Visit Diagnosis Plan: Pain in right knee Discussion: T opical voltaren gel QID ICD-9 : 719.46 ICD-10 : M25.561 01/23/2018 Appointment: Lita Barakat WPtel: [address] [place] [address] ACUTE ILLNESS 01/23/2018 Patient Education: Patient Medication [...] : N39.0 01/02/2018 Appointment: Lita Barakat WPtel: [address] [place] [address] ACUTE ILLNESS 01/02/2018 Patient Education: Patient Medication [...] ICD-10 : J44.1 12/28/2017 Appointment: Autumn Oneil [address] [place] [address] Consult 12/28/2017 Patient Education: Patient Medication Summary [...] ICD-10 : J20.9 12/21/2017 Appointment: Autumn Oneil [address] [place], [place] [phone] ACUTE ILLNESS 12/21/2017 Patient Education: Patient Medication Summary Completed 12/21/2017 Care Plan: X-RAY EXAM OF KNEE 1 OR 2 right [place] : 32[address]-8 Pending 12/18/2017 Visit Diagnosis Plan: Pain in [...] : J44.0 12/17/2017 Appointment: Autumn Oneil [address] [place] [address] ACUTE ILLNESS 12/17/2017 Patient Education: Patient Medication Summary Completed 12/17/2017 Visit Diagnosis Plan: Unilateral primary osteoarthriti s, right knee Discussion: Right knee injection as above Warned of elevated BS after injection ICD-9 : 715.96 ICD-10 : M17.11 12/11/2017 Appointment: Lita Barakat WPtel: [address] [place] [address] OFFICE SURGERY 12/11/2017 Patient Education: Patient Medication Summary Completed 12/11/2017 Visit Diagnosis Plan: Actinic keratosis Discussion: Cr yotherapy as above If persists then will need excision by Dr. Swanson ICD-9 : 702.0 ICD-10 : L57.0 11/07/2017 Appointment: Lita Barakat WPtel: [address] [place] [address] ACUTE ILLNESS 11/07/2017 Patient Education: Patient Medication [...] : S61.411S 10/17/2017 Appointment: Lita Barakat WPtel: [address] [place] [address] ER Follow UP 10/17/2017 Patient Education: Patient Medication Summary Completed 10/17/2017 Appointment: Lita Barakat WPtel: [address] [place] [address] [place] Consult 08/15/2017 Visit Diagnosis Plan: Chronic [...] : J44.0 08/02/2017 Appointment: Autumn Oneil [address] ACUTE ILLNESS 08/02/2017 Patient Education: Patient Medication Summary Completed 08/02/2017 Patient Education: Patient Medication Summary Completed 07/31/2017 Care Plan: CHEST X-RAY 2VW FRONTAL&LATL LOINC : 73895-7 Pending 07/31/2017 Appointment: Lita Barakat WPtel: [address] [facility] INJECTION 07/24/2017 Patient Education: Patient Medication Summary [...] : J44.1 07/02/2017 Appointment: Autumn Oneil [address] ACUTE ILLNESS 07/02/2017 Patient Education: Patient Medication Summary Completed 07/02/2017 Care Plan: CHEST X-RAY 2VW FRONTAL&LATL LOINC : 50403-6 Pending 07/02/2017 Care Plan: MRI LUMBAR SPINE W/O DYE LOIN C : 26216-0 Pending 05/30/2017 Visit Plan: MRI at [facility] codone 5.325 1 po q 4-6 hours prn pain #40 NR and Cyclobenzaprine (ERx) Continue warm packs for pain RTC if no improvement 05/29/2017 Appointment: Ruchi Buchananl: [address] [place], [place] [address] ACUTE ILLNESS 05/29/2017 Patient Education: Patient Medication Summary Completed 05/29/2017 Appointment: Lita Barakat WPtel: [address] [place], [place] [phone] [place] CANCELED 05/24/2017 Patient Education: Patient Medication Summary Completed 05/22/2017 Care Plan: X-RAY EXAM L-S SPINE 2/3 VWS LOINC : 40954-5 Pending 05/22/2017 Appointment: Lita Barakat WPtel: [address] [place] [address] LAB 04/17/2017 Patient Education: Patient Medication Summary Completed 04/17/2017 Referral: Demetrius Benjamin WPtel: [address] [place] [address] Referral Initiated 04/05/2017 Appointment: Lita Barakat WPtel: [address] [place] [address] 03/30/17 0930---spoke with patient about ointments (km Consult 03/30/2017 Appointment: Lita Barakat WPtel: [address] [place] [address] 03/29/17 1320---spoke with patient, requip refilled wasn't received at pharmacy so verbally called (km) Consult 03/29/2017 Patient Education: Patient Medication Summary Completed 03/01/2017 Care Plan: CHEST X-RAY 2VW FRONTAL&LATL LOINC : 55424-6 Pending 03/01/2017 Visit Diagnosis Plan: Bursitis of left shoulder Discus yesi: Injection as above ICD-9 : 726.10 ICD-10 : M75.52 02/01/2017 Appointment: Lita Barakat WPtel: [address] [place] [address] 01/31 confirmed ~sl WORK IN 02/01/2017 Patient Education: Patient Medication Summary Completed 02/01/2017 Care Plan: X-RAY EXAM OF SHOULDER LOINC : 00443-0 Pending 01/30/2017 Visit Plan: May take OTC Tylenol/Ibuprof en as directed XRay at [facility] of left shoulder Tramadol 50mg 1 po q 6 hours prn pain called to [facility]. Sedation warning given (no driving, etc) RTC if no improvement 01/29/2017 Appointment: Ruchi Buchanan WPtel: [address] [place] [address] ACUTE ILLNESS 01/29/2017 Appointment: Ruchi Buchanan WPtel: [address] [place] [address] ACUTE ILLNESS 01/29/2017 Patient Education: Patient Medication Summary Completed 01/29/2017 Appointment: Lita Barakat WPtel: [address] [place] [address] [place] Consult 01/10/2017 Appointment: Lita Barakat WPtel: [address] [place] [address] 12/27/2016 Patient Education: Patient Medication Summary Completed [...] : R53.83 12/21/2016 Appointment: Lita Barakat WPtel: [address] [place] [address] ACUTE ILLNESS 12/21/2016 Patient Education: Patient Medication Summary Completed 12/21/2016 Appointment: Lita Barakat WPtel: [address] [place] [address] CANCELED 12/18/2016 Visit Diagnosis Plan: Restless legs [...] D64.9 12/14/2016 Appointment: Lita Barakat WPtel: [address] [facility] US 12/13 confirmed ~sl WORK IN 12/14/2016 Appointment: Lita Barakat WPtel: [address] [place], [place] [id number] [place] CANCELED 12/14/2016 Patient Education: Patient Medication Summary Completed 12/14/2016 Appointment: Lita Barakat WPtel: [address] [place], [place] [address] [place] LAB 12/12/2016 Patient Education: Patient Medication Summary Completed 12/12/2016 Appointment: Lita Barakat WPtel: [address] [facility] [facility] ER this weekend--called for reports Consult 12/11/2016 Appointment: Lita Barakat WPtel: [address] [place], [place] [address] [place] CANCELED 12/04/2016 Visit Diagnosis Plan: Pneumonia, [...] ICD-10 : G25.81 11/14/2016 Appointment: Magda Toth [address] [place] [address] MEDICATION REVIEW 11/14/2016 Patient Education: Patient Medication Summary Completed 11/14/2016 Appointment: Lita Barakat WPtel: [address] [place], [place] [address] US RESCHEDULED 11/02/2016 Visit Diagnosis Plan: Candidal stomatitis Discussion: Diflucan and Nystatin Hold atorvastatin while taking diflucan ICD-9 : 112.0 ICD-10 : B37.0 10/31/2016 Appointment: Lita Barakat WPtel: [address] [place] [address] ACUTE ILLNESS 10/31/2016 Patient Education: Patient Medication Summary Completed 10/31/2016 Appointment: Lita Barakat WPtel: [address] [place], [place] [phone] [place] Consult 10/23/2016 Appointment: Lita Barakat WPtel: [address] [place], [place] [phone] [place] CANCELED 10/18/2016 Visit Plan: Rx as above Wear O2 at all t imes as instructed by Dr Chacon Continue breathing treatments Supportive care otherwise reviewed Follow up ingrid if not improving 10/03/2016 Appointment: Lita Barakat WPtel: [address] [place], [place] [phone] [place] CANCELED 10/03/2016 Appointment: Magda Toth [address] [place] [address] ACUTE ILLNESS 10/03/2016 Patient Education: Patient Medication Summary Completed 10/03/2016 Visit Plan: Titrate requip to 1.5mg x 1 week Call if not helpful and will increase to 2mg qHS NO MORE nyquil at bedtime - discussed potential effects of decongestants on heart, oversedating himself, etc Will increase requip, then amitriptyline if needed to desired effect 09/04/2016 Appointment: Magda Toth [address] [place], [place] [address] ACUTE ILLNESS 09/04/2016 Patient Education: Patient Medication Summary Completed 09/04/2016 Visit Plan: Stop requip and try elavil C ryotherapy as above See ENT for removal of right ear lesion 08/22/2016 Appointment: Lita Barakat WPtel: [address] [place], [place] [address] ACUTE ILLNESS 08/22/2016 Patient Education: Patient Medication Summary Completed 08/22/2016 Visit Plan: Trial of requip 1mg q HS Res tart zoloft Recheck 1month 08/10/2016 Appointment: Lita Barakat WPtel: [address] [place] [address] ACUTE ILLNESS 08/10/2016 Patient Education: Patient Medication Summary Completed 08/10/2016 Visit Plan: Stop HCTZ Flagyl for diarrhe a Hydrate Discussed meds for restless legs Zofran prn Nausea 07/06/2016 Appointment: Lita Barakat WPtel: [address] [place], [place] [phone] [facility] Patient Education: Patient Medication Summary Completed 07/06/2016 Visit Plan: Reviewed with Dr Gasper mantillaing his recent history, instructed him to go straight to the ER called to notify her so she can meet him there 06/22/2016 Appointment: Magda Toth [address] [facility] ACUTE ILLNESS 06/22/2016 Patient Education: Patient Medication Summary Completed 06/22/2016 Visit Plan: Continue current meds Prevna r 13 and High Dose Flu given 06/13/2016 Appointment: Lita Barakat WPtel: [address] [facility] 06/13 confirmed~sl WORK IN 06/13/2016 Patient Education: Patient Medication Summary Completed 06/13/2016 Appointment: Lita Barakat WPtel: [address] [facility] just went over current medications CANCELED 06/08/2016 Visit Plan: Reviewed POC with Dr Barakat Stat cbc, cmp, d dimer, troponin, bnp, ekg, cxr If any worsening of symptoms while awaiting results, patient instructed to go to ER or call 911 06/01/2016 Appointment: Magda Toth [address] [place] [address] ACUTE ILLNESS 06/01/2016 Patient Education: Patient Medication Summary Completed 06/01/2016 Referral: José Miguel Swanson WPtel: [address] [place] [address] 04/[address] swanson's office, patient is [...] eval and treatment 04/26/2016 Appointment: Magda Toth [address] [place], [place] [address] ACUTE ILLNESS 04/26/2016 Patient Education: Patient Medication Summary Completed 04/26/2016 Care Plan: Referral Order SNOMED-CT : 30 8402650 Pending 04/26/2016 Visit Plan: Left ear flushed after conse nt with warm water with peroxide with ear syringe Patient tolerated well Ear exam is wnl following flushing Follow up PRN 04/05/2016 Appointment: Magda Toth [place] [facility] ACUTE ILLNESS 04/05/2016 Patient Education: Patient Medication Summary Completed 04/05/2016 Visit Plan: Increase Levemir to 25u sc d aily Increase sertraline to 2 full tablets daily--200mg Debrox or cerumenex to bilateral ears q HS for 3 nights then flush or fwup for fushing Check lab in 2mos then fwup 04/03/2016 Appointment: Lita Barakattel: [address] [facility] 03/31 7/8 lm ~sl FOLLOW UP 04/03/2016 Patient Education: Patient Medication Summary Completed 04/03/2016 Visit Plan: Patient informed of correct dosage of levemir and how to administer. Patient verbalizes understanding and will call if any questions/concerns. 10 Units of Levemir given in office SC to right lower abdom en. Patient tolerated well. Site without redness/irritation. 03/13/2016 Appointment: Lita Barakat WPtel: [address] [facility] SPECIAL 03/13/2016 Patient Education: Patient Medication Summary Completed 03/13/2016 Appointment: Lita Barakat WPtel: [address] [facility] LAB 03/06/2016 Patient Education: Patient Medication Summary Completed 03/06/2016 Visit Plan: Patient saw Dr. Chacon this week and was given prednisone taper for COPD Continue current meds Accuchecks daily Patient will return on Sunday morning for fasting lab incuding CBC, CMP, TSH, free T4, HbA1C, Lipids, Testosterone, PSA 03/02/2016 Appointment: Lita Barakattel: [facility] 03/01 confirmed ~sl FOLLOW UP 03/02/2016 Patient [...] how doing 02/17/2016 Appointment: Lita Barakat WPtel: [address] [place], [place] [address] WORK IN 02/17/2016 Patient Education: Patient Medication Summary Completed 02/17/2016 Visit Plan: Xrays to further evaluate Alvarez spect heel spur(s) Will call with results Has had injections in the past that were helpful Dr Barakat can do them or can refer to podiatry if warranted 02/14/2016 Appointment: Magda Toth [address] [place], [place] [address] ACUTE ILLNESS 02/14/2016 Patient Education: Patient Medication Summary Completed 02/14/2016 Visit Plan: Increase Zoloft to 150mg cooper ly 01/31/2016 Appointment: Lita Barakat WPtel: [address] [place], [place] [phone] 01/26 confirmed `sl FOLLOW UP 01/31/2016 Patient Education: Patient Medication Summary Completed 01/31/2016 Visit Plan: Decrease citalopram to 20mg q AM for 1 week then stop Start zoloft 50mg q HS for 1 week then increase to 100mg q HS 12/30/2015 Appointment: Lita Barakat WPtel: [address] [place], [place] [phone] 12/28 confirmed~sl ACUTE ILLNESS 12/30/2015 Patient Education: Patient Medication Summary Completed 12/30/2015 Visit Plan: Check Neck US 12/16/2015 Appointment: Lita Barakat WPtel: [address] [place], [place] [phone] 12/14 lm ~sl 12/15 confirmed-sp FOLLOW UP 12/16/2015 Patient Education: Patient Medication Summary Completed 12/16/2015 Care Plan: US EXAM OF HEAD AND NECK LOIN C : 99826-4 Ordered 12/16/2015 Appointment: Stephanie Rios WPtel: [address] [place], [place] [phone] 12/09 confirmed-sp 12/12 lm ~sl Patient r eturn call and stated he just plain forgot ~sl FOLLOW UP 12/13/2015 Visit Plan: Had changing lesions of fore head and left mastoid area removed earlier today. Follow-up in one week Will proceed with soft tissue ultrasound of neck/ left cervical lymph node if no improvement antibiotics Clindamycin 300mg PO TID 12/06/2015 Appointment: Stephanie Rios WPtel: [address] [place] [address] ACUTE ILLNESS 12/06/2015 Patient Education: Patient Medication Summary Completed 12/06/2015 Referral: Lisbeth Darby WPtel: [facility] [address] 11/18/15 called luther at [facility] office and confirmed time and date of appointment with patient~sl Initiated 11/18/2015 Visit Plan: Referral to Dermatology for removal of facial skin lesions Cefdinir PO bid Topical Mupirocin to skin lesions bid 11/15/2015 Appointment: Stephanie Rios WPtel: [address] [place] [address] ACUTE ILLNESS 11/15/2015 Patient Education: Patient Medication Summary Completed 11/15/2015 Visit Plan: Continue current meds Accuch ecks daily Fwup with ophthamology as scheduled Will check lab in 3mos then fwup due to recent meds that will affect blood sugar 10/05/2015 Appointment: Lita Barakat WPtel: [address] [place], [place] [phone] 10/04/15 appt confirmed cn Annual Well Visit 08/2016 Patient Education: Patient Medication Summary Completed 10/05/2015 Visit Plan: Trajenta -1 sample box given Return visit in 6 weeks for fasting labs Notify for worsening symptoms such as Increased redness, swelling, pain or drainage of Rt. knee 07/22/2015 Appointment: Stephanie Rios WPtel: [address] [place], [place] [id number] 07/21 vm left cn FOLLOW UP 07/22/2015 Patient Education: Patient Medication Summary Completed 07/22/2015 Visit Plan: Continue to change dressing twice daily and apply Mupirocin Complete Doxycycline as directed. Follow-up for worsening symptoms, such as increased swelling, redness or pain. 07/01/2015 Appointment: Stephanie Rios WPtel: [address] [place], [place] [phone] FOLLOW UP 07/01/2015 Patient Education: Patient Medication Summary Completed 07/01/2015 Visit Plan: Pressure dressing applied to draining wound left knee. Instructed to change dressing twice daily and continue Mupirocin topical Doxycycline PO bid x 10 days Wound culture obtained. Wound tissue sent to pathology Follow-up in 3 days 06/28/2015 Appointment: Stephanie Rios WPtel: [address] [facility] ACUTE ILLNESS 06/28/2015 Patient Education: Patient Medication Summary Completed 06/28/2015 Visit Plan: Complete antibiotics Follow- up for increased tenderness, swelling or drainage. 06/09/2015 Appointment: Stephanie Rios WPtel: [address] [place], [place] [id number] 06/08/15 FOLLOW UP 06/09/2015 Patient Education: Patient Medication Summary Completed 06/09/2015 Visit Plan: Apply pressure dressing toda y Continue antibiotics and topical Mupirocin Follow-up in 2 days Bursa drained from open area using pressure--serosanguinous drainage 06/07/2015 Appointment: Stephanie Rios WPtel: [address] [place], [place] [phone] 06/04/15 confirmed with patient FOLLOW UP 0 06/07/2015 Patient Education: Patient Medication Summary Completed 06/07/2015 Visit Plan: Wound culture Lt. knee Apply mupirocin to open wound bid Clindamycin 600 mg PO bid x 10 days Follow-up on Sunday06/03/2015 Appointment: Stephanie Rios WPtel: [address] [place], [place] [phone] ACUTE ILLNESS 06/03/2015 Patient Education: Patient Medication Summary Completed 06/03/2015 Visit Plan: Accuchecks daily Check CMP, HbA1C today Patient is noncompliant with meds and diet but patient says he is doing everything he is supposed to do Wants to try performomist instead of albuterol in SVN 06/01/2015 Appointment: Lita Barakat WPtel: [address] [place], [place] [phone] 05/28 appt confirmed cn FOLLOW UP 06/01/20 15 Patient Education: Patient Medication Summary Completed 06/01/2015 Visit Plan: Change Breo Ellipta to Advai r 500/50 1 p BID this next month Continue turdoza Use albuterol prn Check CMP, HbA1C today Accuchecks daily Cryotherapy as above 02/25/2015 Appointment: Lita Barakat WPtel: [address] [place], [place] [phone] 02/24 appt confirmed and explained needed payment he said ok FOLLOW UP 02/25/2015 Patient Education: Patient Medication Summary Completed 02/25/2015 Referral: Lopez Chacon [facility] C&D [id number] [place] Will put patient on cancellation list Initiated 12/08/2014 Appointment: Lita Barakat WPtel: [address] [place], [place] [phone] [place] [address] Follow Up 10/29/2014 Visit Plan: Finish prednisone Continue S VNs with albuterol QID See pulmonology and start Pulmonary rehab Once again discussed taking it easy this winter--that he is high risk for exacerbation 10/27/2014 Appointment: Lita Barakat WPtel: [address] [place], [place] [phone] FOLLOW UP 10/27/2014 Patient Education: Patient Medication Summary Completed 10/27/2014 Appointment: Lita Barakat WPtel: [address] [place], [place] [phone] FOLLOW UP 10/26/2014 Appointment: Stephanie Rios WPtel: [address] [place], [place] [phone] WORK IN 10/21/2014 Patient Education: Patient Medication Summary Completed 10/21/2014 Patient Education: Patient Medication Summary Completed 10/19/2014 Visit Plan: Continue oxygen and SVNS wit h duoneb Increase farxiga to 10mg daily Diflucan 100mg daily for 1week 10/06/2014 Appointment: Lita Barakat WPtel: [address] [place], [place] [phone] [place] [address] appt time to 2:45pm FOLLOW UP 2014 Patient Education: Patient Medication Summary Completed 10/06/2014 Visit Plan: Finish omnicef Continue Breo BID and Turdoza Use SVNS with duoneb at least TID for next 2weeks then go to prn 09/21/2014 Appointment: Lita Barakat WPtel: [address] [place] [address] Follow Up 09/21/2014 Patient Education: Patient Medication Summary Completed 09/21/2014 Patient Education: [facility] - Saving [employer] - Edvin HFA - 18+ - Dynamic Portal ID Completed 09/21/2014 Appointment: Stephanie Rios WPtel: [address] [place] [address] Scheduled by 09/07 patient rescheduled to 09/08 with Stephanie. [facility] Follow Up 09/08/2014 Patient Education: Patient Medication Summary Completed 09/08/2014 Appointment: Stephanie Rios WPtel: [address] [place], [place] [phone] FOLLOW UP 09/02/2014 Patient Education: Patient Medication Summary Completed 09/02/2014 Patient Education: [employer] - Antibi otics, Analgesics 18+, Oral Contraceptives F 18+ Completed 09/02/2014 Appointment: Lita Barakat WPtel: [address] [place], [place] [phone] [facility] 08/27/2014 Patient Education: Patient Medication Summary Completed [...] prn sleep 08/10/2014 Appointment: Lita Barakat WPtel: [address] [place] [address] Annual Well Visit 08/10/2014 Patient Education: Patient Medication Summary Completed 08/10/2014 Appointment: Lita Barakat WPtel: [address] [place] [address] LAB 08/05/2014 Patient Education: Patient Medication Summary Completed 08/05/2014 Visit Plan: ECHO results reviewed Contin ue Breo and Turdoza Pt starts PT this afternoon for back--has had one epidural with no help in pain 05/05/2014 Appointment: Lita Barakat WPtel: [address] [place] [address] FOLLOW UP 05/05/2014 Patient Education: Patient Medication Summary Completed 05/05/2014 Visit Plan: Continue Breo and Turdoza Camargo s heart tests scheduled next week Will see surgeon for removal of skin cancer to neck after done with cardiac workup 03/24/2014 Appointment: Lita Barakat WPtel: [address] [place] [address] FOLLOW UP 03/24/2014 Patient Education: Patient Medication Summary Completed 03/24/2014 Visit Plan: Proceed with cardiology eval uation as patient is has numerous risk factors for CAD Change Symbicort to Breo 1p BID and add Turdorza 1p BID Recheck in weeks Check 2-D ECHO and lexiscan 03/10/2014 Appointment: Lita Barakat WPtel: [address] [place] [address] FOLLOW UP 03/10/2014 Patient Education: Patient Medication Summary Completed 03/10/2014 Visit Plan: Shoulder injection as above Back brace to use when doing any lifting for stability 12/16/2013 Appointment: Lita Barakat WPtel: [address] [place] [address] ACUTE ILLNESS 12/16/2013 Patient Education: Patient Medication Summary Completed 12/16/2013 Visit Plan: Continue symbicort and Turdo za Salt water gargles Omnicef 300mg 2 po daily for 1wk Phenergan with codeine 10/09/2013 Appointment: Lita Barakat WPtel: [address] [place], [place] [phone] WORK IN 10/09/2013 Patient Education: Patient Medication Summary Completed 10/09/2013 Appointment: Ruchi Buchanan WPtel: [address] [place], [place] [phone] ACUTE ILLNESS 09/18/2013 Patient Education: Patient Medication Summary Completed 09/18/2013 Visit Plan: Check on repeat CXR Finish a bx Start Tradjenta to replace metformin 08/13/2013 Appointment: Lita Barakat WPtel: [address] [place] [address] 08/12 Hospital Follow Up 08/13/2013 Patient Education: Patient Medication Summary Completed 08/13/2013 Visit Plan: Admit to hospital 08/06/2013 Appointment: Stephanie Rios WPtel: [address] [place] [address] ACUTE ILLNESS 08/06/2013 Patient Education: Patient Medication Summary Completed 08/06/2013 Visit Plan: Continue current meds Contin ue accuchecks daily Proceed with stress test due to high risk for CAD 07/16/2013 Appointment: Lita Barakat WPtel: [address] [place], [place] [address] FOLLOW UP 07/16/2013 Patient Education: Patient Medication Summary Completed 07/16/2013 Appointment: Lita Barakat WPtel: [address] [place], [place] [phone] LAB 06/25/2013 Patient Education: Patient Medication Summary Completed 06/25/2013 Visit Plan: prednisone and azithromycin. Doing CBC and mycoplasma blood draw. Will continue inhaler and albuterol breathing treatments. 04/09/2013 Appointment: Kimberly Villalba WPtel: [address] [place], [place] [phone] ACUTE ILLNESS 04/09/2013 Patient Education: Patient Medication Summary Completed 04/09/2013 Appointment: Lita Barakat WPtel: [address] [place] [address] ACUTE ILLNESS 02/11/2013 Patient Education: Patient Medication Summary Completed 02/11/2013 Appointment: Ruchi Buchanan WPtel: [address] [place] [address] ACUTE ILLNESS 01/31/2013 Patient Education: Patient Medication Summary Completed 01/31/2013 Visit Plan: Cefdinir and medrol dose pac k. Codeine/guiaf cough syrup. Has colonoscopy on Sunday. Pt. is to notify if fever occurs or symptoms worsen. Hydration and rest. 01/20/2013 Appointment: Kimberly Villalba WPtel: [address] [place] [address] ACUTE ILLNESS 01/20/2013 Patient Education: Patient Medication Summary Completed 01/20/2013 Visit Plan: Scopalamine patch and vestib ular exercises 12/19/2012 Appointment: Lita Barakat WPtel: [address] [place] [address] ACUTE ILLNESS 12/19/2012 Patient Education: Patient Medication Summary Completed 12/19/2012 Visit Plan: Dr. Swanson consult if no impr ovement in hearing. Pt. reports he will notify if no better in one week. Willam consult for skin lesion. 10/21/2012 Appointment: Kimberly Villalba WPtel: [address] [place] [address] ACUTE ILLNESS 10/21/2012 Patient Education: Patient Medication Summary Completed 10/21/2012 Appointment: Lita Barakat WPtel: [address] [place], [place] [phone] [place] LAB 09/19/2012 Patient Education: Patient Medication Summary Completed 09/19/2012 Visit Plan: Check fasting lab in AM--CMP , Lipids, HbA1C 09/18/2012 Appointment: Lita Barakattel: [address] [place], [place] [phone] [place] FOLLOW UP 09/18/2012 Patient Education: Patient Medication Summary Completed 09/18/2012 Appointment: Lita Barakattel: [address] [place], [place] [phone] [place] appt time scheduled sooner FOLLOW UP 09/05 Visit Plan: Doxycycline and Prednisone I ncrease SVN to QID Add back Symbicort 160/4.5 2 p BID 08/28/2012 Appointment: Lita Barakattel: [address] [place], [place] [phone] [place] FOLLOW UP 08/28/2012 Patient Education: Patient Medication Summary Completed 08/28/2012 Appointment: Lita Barakattel: [address] [place], [place] [phone] Annual Well Visit 07/10/2012 Patient Education: Patient Medication Summary Completed 07/10/2012 Visit Plan: Finish Z-pack Add Nasonex Ad d Meclizine Vestibular exercises Continue current meds and accuchecks Check lab and fwup in 4mos 05/09/2012 Appointment: Liat Barakattel: [address] [place] [phone] [place] number no longer works FOLLOW UP 2 Patient Education: Patient Medication Summary Completed 05/09/2012 Appointment: Lita Barakattel: [address] [place], [place] [phone] [place] LAB 05/06/2012 Patient Education: Patient Medication Summary Completed 05/06/2012 Appointment: Lita Barakattel: [address] [place] [phone] [place] LAB 05/02/2012 Appointment: Lita Barakat WPtel: [address] [place] [phone] [place] INJECTION 02/05/2012 Patient Education: Patient Medication Summary Completed 02/05/2012 Visit Plan: cefdinir. Will focus on rest and fluids. Pt. reports he is using breathing treatments as needed. Pt. will monitor for worsening symptoms or fever. 10/02/2011 Appointment: Kimberly Villalba WPtel: [address] [place], [place] [phone] ACUTE ILLNESS 10/02/2011 Patient Education: Patient Medication Summary Completed 10/02/2011 Appointment: Lita Barakat WPtel: [address] [place] [phone] [place] INJECTION 08/10/2011 Patient Education: Patient Medication Summary Completed 08/10/2011 Visit Plan: Continue current meds Restar t Advair Restart exercise Flu shot given 08/07/2011 Appointment: Lita Barakat WPtel: [address] [place] [phone] FOLLOW UP 08/07/2011 Patient Education: Patient Medication Summary Completed 08/07/2011 Appointment: Lita Barakat WPtel: [address] [place] [phone] LAB 07/26/2011 Patient Education: Patient Medication Summary Completed 07/26/2011 Visit Plan: ALEKSANDER Carmen Continue Metformin but change to BID Add Lantus 25u sc q PM BS readings in 1wk 04/03/2011 Appointment: Lita Barakat WPtel: [address] [place] [phone] ACUTE ILLNESS 04/03/2011 Patient Education: Patient Medication Summary Completed 04/03/2011 Appointment: Lita Barakat WPtel: [address] [place] [phone] [place] INJECTION 01/19/2011 Patient Education: Patient Medication Summary Completed 01/19/2011 Appointment: Lita Barakat WPtel: [address] [place] [phone] ACUTE ILLNESS 01/18/2011 Patient Education: Patient Medication Summary Completed 01/18/2011 Appointment: Lita Barakat WPtel: [address] [place], [place] [phone] [place] INJECTION 12/21/2010 Patient Education: Patient Medication Summary Completed 12/21/2010 Appointment: Lita Barakat WPtel: [address] [place] [phone] [place] FOLLOW UP 12/19/2010 Patient Education: Patient Medication Summary Completed 12/19/2010 Appointment: Lita Barakat WPtel: [address] [place] [phone] [place] LAB 12/07/2010 Patient Education: Patient Medication Summary Completed 12/07/2010 Appointment: Kimberly Villalba WPtel: [address] [place], [place] [phone] ACUTE ILLNESS 04/05/2010 Patient Education: Patient Medication Summary Completed 04/05/2010 Appointment: Lita Barakat WPtel: [address] [place] [phone] WORK IN 03/14/2010 Patient Education: Patient Medication Summary Completed 03/14/2010 Appointment: Lita Barakattel: [address] [place] [phone] [place] LAB 03/02/2010 Visit Plan: HbA1C in 3mos. Continue Accu checks BID alternating times. Switch lexapro to celexa 01/13/2010 Appointment: Lita Barakat WPtel: [address] [place] [phone] [place] FOLLOW UP 01/13/2010 Patient Education: Patient Medication Summary Completed 01/13/2010 Appointment: Lita Barakat WPtel: [address] [place] [phone] [place] FOLLOW UP 01/11/2010 Visit Plan: Pt. will continue the Avalox and Doxycycline regimen as prescribed the previous day. He has been advised to continue inhalers, breathing treatments and oxygen therapy for at least the weekend. Moderate activity without strenuous exercise. The pt. will seek immediate re-eval if his symptoms worsen. 12/23/2009 Appointment: Kimberly Villalba WPtel: [address] [place], [place] [phone] FOLLOW UP 12/23/2009 Patient Education: Patient Medication [...] tomorrow morning. 12/22/2009 Appointment: Kimberly Villalba WPtel: [address] [place] [address] ACUTE ILLNESS 12/22/2009 Patient Education: Patient Medication Summary Completed 12/22/2009 Appointment: Kimberly Villalba WPtel: [address] [place] [address] FOLLOW UP 12/21/2009 Appointment: Lita Barakat WPtel: [address] [place] [phone] INJECTION 12/16/2009 Patient Education: Patient Medication Summary Completed 12/16/2009 Appointment: Kimberly Villalba WPtel: [address] [place], [place] [phone] ACUTE ILLNESS 12/13/2009 Patient Education: Patient Medication Summary Completed 12/13/2009 Care Plan: X-RAY EXAM OF SHOULDER lt shoulder (pain ra diates across the shoulder) Hand carried orders to [facility] LOINC : 38047-1 Ordered 12/13/2009 Care Plan: X-RAY EXAM THORAC SPINE 2VWS Hand carried order LOINC : 89958-2 Ordered 12/13/2009 Care Plan: X-RAY EXAM RIBS UNI 2 VIEWS Posterior ribs of lt. side Pt. hand carries order to [facility] LOINC : 56626-2 Ordered 12/13/2009 Referral: José Miguel Swanson WPtel: [address] [address] [place] Referral Appointment Requested Referral: José Miguel Swanson WPtel: [address] [address] [place] Referral Appointment Requested Referral: Chandu Quarles WPtel: [address] Quarles for screening colonoscopy. P atient notified that [facility] office will book appt with him Initiated Referral: Santosh Machado WPtel: [address] [address] [place] Referral Appointment Requested Referral: José Miguel Swanson WPtel: [address] [address] [place] Referral Initiated Referral: Lopez Chacon [address] [facility] C&D [address] Referral Initiated Referral: Demetrius Benjamin WPtel: [address] [address] [place] Referral Appointment Requested Referral: José Miguel Swanson WPtel: [address] [address] [place] Referral Appointment Requested Referral: José Miguel Swanson WPtel: [address] [address] [place] Referral Initiated Instructions Comment . Saline nasal flushes prn. Tylenol/Motr in prn headache. Notify if persists/symptoms worsening. . MRI at [facility] Hydrocodone 5.325 1 po q [...]
--- OUTSIDE RECORDS SUMMARY | 2020-03-28 15:44 | XMS REPORT | CCD ---
Author Author Leandro Barakat D.O. Organization [facility]AK[facility] Address [address] [place] [address] Phone Care Team Providers Care Fund Development Manager Name Role Phone Lita Barakat D.O., PP Unavailable CCM Unavailable Summary Purpose Interface Exchange Insurance Providers Payer name Policy type / Coverage type Covered constitution party ID Effective Begin Date Effective End Date [employer] MEDICARE Medicare Part B [id number] 2019 Unknown Family history Brother Diagnosis Age At Onset Cancer Unknown Father Diagnosis Age At Onset Heart disease Unknown Mother Diagnosis Age At Onset Heart disease Unknown Social History Social History Element Codes Description Effective Dates Tobacco history SNOMED CT: 6325997 Former smoker quit 15 years ago 08/07/2011 [...] 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.9 06/22/2016 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: [...] Start Date Stop Date Status Fill Instructions albuterol sulfate 2.5 mg/3 mL (0.083 %) solution for n ebulization RxNorm: 418924 USE 1 VIAL IN NEBULIZER EVERY FOUR HOURS NEEDED FOR WHEEZING OR SOB 03/09/2020 04/22/2020 Active Levemir FlexTouch U-100 Insulin 100 unit/mL (3 mL) sub cutaneous pen RxNorm: 894810 INJECT 20 UNITS SQ QD 02/26/2020 03/21/2020 Active losartan 100 mg tablet RxNorm: 059585 1TD 02/03/2020 05/02/2020 Active Sinemet CR 50 mg-200 mg tablet,extended release RxNorm: 8343 41 1 Tablet(s) Oral three times a day 02/02/2020 07/31/2020 Active Generic For:*S INEMET CR 50/200 TABLET SA 07/08/2018 3:09:11 PM hydrocodone 10 mg-acetaminophen 325 mg tablet RxNorm: 902306 1 Tablet(s) Oral Q4H as needed for pain 01/29/2020 No Stop Date Active ipratropium 0.5 mg-albuterol 3 mg (2.5 mg base)/3 mL n ebulization soln RxNorm: 5254081 USE 1 VIAL IN NEBULIZER Q4H (THIS REPLACES ALBUTEROL S OLUTION) 01/08/2020 02/06/2020 Inactive prednisone 20 mg tablet RxNorm: 818577 1 Tablet(s) Oral two remy es a day 12/25/2019 01/01/2020 Inactive Levemir FlexTouch U-100 Insulin 100 unit/mL (3 mL) sub cutaneous pen RxNorm: 460563 10 Unit(s) Subcutaneous every night at bedtime 12/22/2019 N o Stop Date Active baclofen 10 mg tablet RxNorm: 125063 1 Tablet(s) Oral QPM for p ain/spasm 12/22/2019 01/21/2020 Inactive ipratropium 0.5 mg-albuterol 3 mg (2.5 mg base)/3 mL n ebulization soln RxNorm: 9924284 USE 1 VIAL IN NEBULIZER Q4H (THIS REPLACES ALBUTEROL S OLUTION) 11/27/2019 12/16/2019 Inactive hydrocodone 10 mg-acetaminophen 325 mg tablet RxNorm: 654398 1 Tablet(s) Oral Q4H as needed for pain 11/13/2019 01/28/2020 Inactive Seroquel 50 mg tablet RxNorm: 029973 1 Tablet(s) Oral QPM as ne eded for sleep 10/07/2019 12/21/2019 Inactive ropinirole 4 mg tablet RxNorm: 005772 3 TABLET(S) BY [facility] DAILY AT BEDTIME FOR RESTLESS LEGS 09/29/2019 12/27/2019 Inactive Generic For:REQU IP 4 MG TABLET 09/29/2019 7:52:42 AM N O T I C E Last quantity doesn't match original quantity ropinirole 4 mg tablet RxNorm: 024461 3 TABLET(S) BY [facility] DAILY AT BEDTIME FOR RESTLESS LEGS 09/26/2019 09/28/2019 Inactive Generic For:REQU IP 4 MG TABLET 09/26/2019 9:08:48 AM N O T I C E Last quantity doesn't match original quantity ipratropium 0.5 mg-albuterol 3 mg (2.5 mg base)/3 mL n ebulization soln RxNorm: 0510697 USE 1 VIAL IN NEBULIZER EVERY FOUR HOURS (THIS REPLACES ALBUTEROL SOLUTION) 09/26/2019 10/15/2019 Inactive Generic For:*DUO NEB 2.5-0.5 MG/3 ML SOLN 09/26/2019 9:08:53 AM hydrocodone 10 mg-acetaminophen 325 mg tablet RxNorm: 446510 1 Tablet(s) Oral Q4H as needed for pain 09/09/2019 09/09/2019 Inactive hydrocodone 10 mg-acetaminophen 325 mg tablet RxNorm: 479560 1 Tablet(s) Oral Q4H as needed for pain 09/09/2019 09/08/2019 Inactive ondansetron HCl 4 mg tablet RxNorm: 364425 1 Tablet(s) Oral QPM for nausea 08/12/2019 10/10/2019 Inactive ipratropium 0.5 mg-albuterol 3 mg (2.5 mg base)/3 mL n ebulization soln RxNorm: 6311762 1 Unit Dose INH Q4H 08/12/2019 09/25/2019 Inactive replaces albuterol solution Augmentin 875 mg-125 mg tablet RxNorm: 898105 1 Tablet(s) Oral two times a day 08/07/2019 08/17/2019 Inactive prednisone 20 mg tablet RxNorm: 911096 1 Tablet(s) Oral QD 08/05/2008/04/2019 Inactive prednisone 20 mg tablet RxNorm: 382686 1 Tablet(s) Oral QD 08/05/2008/06/2019 Inactive Levaquin 500 mg tablet RxNorm: 636666 1 Tablet(s) Oral QD Replaces azithromycin (z-pack) 07/31/2019 08/05/2019 Inactive Levaquin 500 mg tablet RxNorm: 695349 1 Tablet(s) Oral QD Replaces azithromycin (z-pack) 07/21/2019 07/26/2019 Inactive Levaquin 500 mg tablet RxNorm: 863417 1 Tablet(s) Oral QD Replaces azithromycin (z-pack) 07/21/2019 07/20/2019 Inactive Zithromax Z-Gui 250 mg tablet RxNorm: 750506 Tablet(s) Oral 019 07/22/2019 Inactive Zithromax Z-Gui 250 mg tablet RxNorm: 589407 Tablet(s) Oral 019 07/15/2019 Inactive Symbicort 160 mcg-4.5 mcg/actuation HFA aerosol inhaler RxNo rm: 2488208 2 Puff(s) Inhalation two times a day 07/14/2019 07/14/2019 Inactive Tessalon Perles 100 mg capsule RxNorm: 014262 1 Capsule(s) Oral Q8H as needed 07/14/2019 08/06/2019 Inactive Seroquel 50 mg tablet RxNorm: 618381 1 Tablet(s) Oral QPM as ne eded for sleep 07/01/2019 10/06/2019 Inactive ondansetron HCl 4 mg tablet RxNorm: 166461 1 Tablet(s) Oral QPM for nausea 06/24/2019 07/24/2019 Inactive Seroquel 25 mg tablet RxNorm: 373845 1 Tablet(s) Oral every nig ht at bedtime 06/19/2019 06/18/2019 Inactive Seroquel 25 mg tablet RxNorm: 769165 1 Tablet(s) Oral every nig ht at bedtime 06/19/2019 06/30/2019 Inactive trazodone 150 mg tablet RxNorm: 151921 1/2 Tablet(s) PO QHS as needed for sleep 06/11/2019 06/17/2019 Inactive replaces PA on doxep in trazodone 150 mg tablet RxNorm: 482780 1/2 Tablet(s) PO QHS as needed for sleep 05/12/2019 06/11/2019 Inactive replaces PA on doxep in Vitamin D3 5,000 unit tablet RxNorm: 845481 1 Tablet(s) PO QD 05/09 No Stop Date Active magnesium oxide 400 mg (241.3 mg magnesium) tablet RxNorm: 1 05321 1 Tablet(s) PO QHS 05/09/2019 No Stop Date Active cyanocobalamin (vit B-12) 1,000 mcg/mL injection solution Rx Norm: 222804 1 injection weekly for 4 weeks 1 Milliliter(s) Inj 05/09/2019 12/21/2019 Inactive ferrous sulfate 325 mg (65 mg iron) tablet RxNorm: 466384 1 Tab let(s) PO QD 05/09/2019 12/21/2019 Inactive ropinirole 4 mg tablet RxNorm: 668508 3 TABLET(S) BY [facility] DAILY AT BEDTIME FOR RESTLESS LEGS 03/26/2019 06/23/2019 Inactive Generic For:REQU IP 4 MG TABLET 03/26/2019 11:23:36 AM N O T I C E Last quantity doesn't match original quantity pantoprazole 40 mg tablet,delayed release RxNorm: 216714 Tablet(s) TAKE 1 TABLET BY MOUTH DAILY FOR STOMACH 03/24/2019 06/21/2019 Inactive Gener ic For:PROTONIX 40MG TAB EC 01/03/2019 1:23:44 PM hydroxyzine HCl 10 mg tablet RxNorm: 794795 1 Tablet(s) PO BID as needed 03/24/2019 04/06/2019 Inactive ipratropium-albuterol 0.5 mg-3 mg(2.5 mg base)/3 mL ne bulization soln RxNorm: 2176428 1 Unit Dose INH Q4H 03/21/2019 No Stop Date Active replaces albuterol solution meclizine 12.5 mg tablet RxNorm: 325798 1 Tablet(s) PO BID as neede d 03/21/2019 12/21/2019 Inactive losartan 100 mg tablet RxNorm: 318049 1 Tablet(s) PO QD replace s lisinopril 03/13/2019 09/08/2019 Inactive fluconazole 100 mg tablet RxNorm: 035778 1 Tablet(s) PO QD 03/13/2003/19/2019 Inactive nystatin 100,000 unit/mL oral suspension RxNorm: 483551 5 Unit( s) PO QID 03/13/2019 03/26/2019 Inactive tramadol 50 mg tablet RxNorm: 914186 1 Tablet(s) PO TID as needed for pain TAKE 2 TABS OF EXTRA STRENGTH TYLENOL WITH EACH DOSE 03/10/2019 04/06/2019 Inactive Generic For:*ULTRAM 50 MG TABLET 01/15/2019 4:55:26 PM Sinemet CR 50 mg-200 mg tablet,extended release RxNorm: 8343 41 1 Tablet(s) PO TID 02/26/2019 08/24/2019 Inactive Generic For:*SIN EMET CR 50/200 TABLET SA 07/08/2018 3:09:11 PM trazodone 150 mg tablet RxNorm: 558146 1/2 Tablet(s) PO QHS as needed for sleep 02/13/2019 02/12/2019 Inactive trazodone 150 mg tablet RxNorm: 949143 1/2 Tablet(s) PO QHS as needed for sleep 02/13/2019 02/25/2019 Inactive replaces PA on doxep in doxepin 10 mg capsule RxNorm: 3783375 1-2 Capsule(s) PO QHS prn sleep 02/13/2019 02/13/2019 Inactive Novolog U-100 Insulin aspart 100 unit/mL subcutaneous soluti on RxNorm: 237409 INJECT 10 UNIT(S) SUBCUTANEOUSLY BEFORE MEALS 01/31/2019 05/30/2019 In active 01/31/2019 1:39:10 PM ipratropium-albuterol 0.5 mg-3 mg(2.5 mg base)/3 mL ne bulization soln RxNorm: 1998555 1 Unit Dose INH Q4H 01/17/2019 03/20/2019 Inactive replaces albuterol solution tramadol 50 mg tablet RxNorm: 593981 1 Tablet(s) PO TID as needed for pain TAKE 2 TABS OF EXTRA STRENGTH TYLENOL WITH EACH DOSE 01/15/2019 02/03/2019 Inactive Generic For:*ULTRAM 50 MG TABLET 01/15/2019 4:55:26 PM Sinemet CR 50 mg-200 mg tablet,extended release RxNorm: 8343 41 1 Tablet(s) PO BID 01/03/2019 02/25/2019 Inactive Generic For:*SIN EMET CR 50/200 TABLET SA 07/08/2018 3:09:11 PM losartan 100 mg tablet RxNorm: 354664 1 Tablet(s) PO QD replace s lisinopril 01/03/2019 03/12/2019 Inactive Symbicort 160 mcg-4.5 mcg/actuation HFA aerosol inhaler RxNo rm: 7571533 2 Puff(s) INH BID 01/03/2019 01/02/2019 Inactive pantoprazole 40 mg tablet,delayed release RxNorm: 694819 TAKE 1 TABLET BY MOUTH DAILY FOR STOMACH 01/03/2019 03/23/2019 Inactive Generic For:IN OTONIX 40MG TAB EC 01/03/2019 1:23:44 PM nystatin 100,000 unit/mL oral suspension RxNorm: 314364 Unit(s) 5 Unit(s) PO QID swish and spit 01/02/2019 11/11/2019 Inactive Incruse Ellipta 62.5 mcg/actuation powder for inhalation RxN orm: 3328623 1 Capsule(s) INH QD 12/25/2018 12/21/2019 Inactive Tessalon Perles 100 mg capsule RxNorm: 469830 1 Capsule(s) PO T ID for cough 12/25/2018 02/25/2019 Inactive Medrol (Gui) 4 mg tablets in a dose pack RxNorm: 701813 Tablet(s) PO Use as directed 12/23/2018 01/02/2019 Inactive Levemir FlexTouch U-100 Insulin 100 unit/mL (3 mL) sub cutaneous pen RxNorm: 434759 20 Unit(s) SQ QD with pen needles 12/13/2018 05/11/2019 Inactiv e prednisone 20 mg tablet RxNorm: 787834 1 Tablet(s) PO QD 12/12/2018 0 12/11/2018 Inactive prednisone 20 mg tablet RxNorm: 215808 1 Tablet(s) PO QD 12/12/2018 0 12/16/2018 Inactive promethazine 6.25 mg-codeine 10 mg/5 mL syrup RxNorm: 303596 5 Milliliter(s) PO QHS as needed for cough 12/09/2018 12/18/2018 Inactive cefdinir 300 mg capsule RxNorm: 054900 1 Capsule(s) PO BID 12/10/1912/18/2018 Inactive fluconazole 100 mg tablet RxNorm: 747229 1 Tablet(s) PO QD 12/06/19 19 12/08/2018 Inactive ropinirole 4 mg tablet RxNorm: 069146 3 Tablet(s) PO QHS for re stless legs 12/04/2018 03/03/2019 Inactive Novolog U-100 Insulin aspart 100 unit/mL subcutaneous soluti on RxNorm: 775162 INJECT 10 UNIT(S) SUBCUTANEOUSLY BEFORE MEALS 12/04/2018 01/30/2019 In active 12/04/2018 10:02:42 AM nystatin 100,000 unit/mL oral suspension RxNorm: 788607 5 Unit(s) PO QID swish and spit 11/25/2018 12/18/2018 Inactive ropinirole 4 mg tablet RxNorm: 606274 3 Tablet(s) PO QHS for re stless legs 11/04/2018 12/03/2018 Inactive prednisone 20 mg tablet RxNorm: 044156 1 Tablet(s) PO BID 10/23/2018 10/29/2018 Inactive ropinirole 4 mg tablet RxNorm: 029631 3 Tablet(s) PO QHS for re stless legs 10/14/2018 11/04/2018 Inactive pantoprazole 40 mg tablet,delayed release RxNorm: 840478 1 Tablet(s) PO QD forstomach 10/10/2018 01/02/2019 Inactive Symbicort 160 mcg-4.5 mcg/actuation HFA aerosol inhaler RxNo rm: 6190173 2 Puff(s) INH BID 10/10/2018 01/03/2019 Inactive Novolog U-100 Insulin aspart 100 unit/mL subcutaneous soluti on RxNorm: 876834 INJECT 10 UNIT(S) SUBCUTANEOUSLY BEFORE MEALS 10/10/2018 12/03/2018 In active 10/10/2018 11:30:01 AM Sinemet CR 50 mg-200 mg tablet,extended release RxNorm: 8343 41 1 Tablet(s) PO BID 09/26/2018 01/03/2019 Inactive Generic For:*SIN EMET CR 50/200 TABLET SA 07/08/2018 3:09:11 PM ropinirole 4 mg tablet RxNorm: 428430 2 Tablet(s) PO QHS for re stless legs 09/18/2018 10/13/2018 Inactive metformin ER 1,000 mg tablet,extended release 24hr RxNorm: 1 476119 1 Tablet(s) PO BID 09/09/2018 12/18/2018 Inactive ropinirole 4 mg tablet RxNorm: 302860 2 Tablet(s) PO QHS for re stless legs 08/21/2018 09/17/2018 Inactive doxycycline hyclate 100 mg capsule RxNorm: 7989685 1 Capsule(s) PO BID 08/07/2018 08/13/2018 Inactive ropinirole 4 mg tablet RxNorm: 014041 1 Tablet(s) PO QHS replac es 1mg dose 08/07/2018 08/20/2018 Inactive ropinirole 2 mg tablet RxNorm: 285214 TAKE 3 TABLETS BY MOUTH DAILY AT BEDTIME DO NOT EXCEED 3 TABLETS PER DAY!!!! 07/31/2018 08/06/2018 Inactive Generic For:REQUIP 2 MG TABLET 07/30/2018 3:50:28 PM Symbicort 160 mcg-4.5 mcg/actuation HFA aerosol inhaler RxNo rm: 5215674 2 Puff(s) INH BID 07/12/2018 10/09/2018 Inactive Sinemet CR 50 mg-200 mg tablet,extended release RxNorm: 8343 41 TAKE 1 TABLET BY MOUTH TWICE DAILY 07/08/2018 09/26/2018 Inactive Generic For:*S INEMET CR 50/200 TABLET SA 07/08/2018 3:09:11 PM losartan 100 mg tablet RxNorm: 620635 1 Tablet(s) PO QD replace s lisinopril 06/17/2018 12/13/2018 Inactive Novolog U-100 Insulin aspart 100 unit/mL subcutaneous soluti on RxNorm: 337761 10 Unit(s) SQ AC 06/17/2018 10/09/2018 Inactive albuterol sulfate 2.5 mg/3 mL (0.083 %) solution for n ebulization RxNorm: 378408 Milliliter(s) INH USE 1 VIAL IN NEBULIZE R EVERY FOUR HOURS NEEDED FOR WHEEZING OR SHORTNESS OF BREATH 06/13/2018 01/16/2019 Inactive Generic For:*PROVENTIL 0.83 MG/ML SOLUTN 06/13/2013 2:04:46 PM ropinirole 2 mg tablet RxNorm: 976119 3 Tablet(s) PO QH S DO NOT EXCEED 6MG (3 TABLETS) PER DAY!!!! 06/13/2018 07/31/2018 Inactive atorvastatin 40 mg tablet RxNorm: 854389 Tablet(s) TAKE 1 TABLET BY MOUTH EVERY DAY 05/13/2018 12/18/2018 Inactive Generic For:LIPI TOR 40MG TAB 05/01/2018 8:37:31 AM Sinemet CR 50 mg-200 mg tablet,extended release RxNorm: 8343 41 1 Tablet(s) PO BID 05/08/2018 07/06/2018 Inactive Lidocaine Viscous 2 % mucosal solution RxNorm: 0091532 5 Milliliter(s) PO QID as needed 05/02/2018 08/06/2018 Inactive Diflucan 100 mg tablet RxNorm: 033774 1 Tablet(s) PO QD 05/02/2018 Inactive atorvastatin 40 mg tablet RxNorm: 165546 TAKE 1 TABLET BY MOUTH EVERY DAY 05/01/2018 05/13/2018 Inactive Generic For:LIPITOR 40MG TAB 05/01/2018 8:37:31 AM nystatin 100,000 unit/mL oral suspension RxNorm: 330570 5 Unit(s) PO QID (before meals and at bedtime) 04/24/2018 04/30/2018 Inactive Ventolin HFA 90 mcg/actuation aerosol inhaler RxNorm: 748606 2 Puff(s) INH Q4H as needed one inhaler for home and one inhaler for car 04/23/201812/18 Inactive Mucinex 600 mg tablet, extended release RxNorm: 408282 1 Tablet(s) PO BID for congestion 04/22/2018 05/21/2018 Inactive prednisone 10 mg tablet RxNorm: 815747 Tablet(s) PO as directeds 08/06/2018 Inactive ropinirole 2 mg tablet RxNorm: 822863 3 Tablet(s) PO QH S DO NOT EXCEED 6MG (3 TABLETS) PER DAY!!!! 04/09/2018 05/08/2018 Inactive gabapentin 300 mg capsule RxNorm: 267966 1-2 Capsule(s) PO QHS 02/201804/08/2018 Inactive ropinirole 2 mg tablet RxNorm: 330853 1 Tablet(s) PO QHS 03/28/2018 0 04/08/2018 Inactive gabapentin 300 mg capsule RxNorm: 960957 1-2 Capsule(s) PO QHS 02/2303/29/2018 Inactive gabapentin 300 mg capsule RxNorm: 770911 1-2 Capsule(s) PO QHS 02/2203/13/2018 Inactive gabapentin 300 mg capsule RxNorm: 930473 2 Capsule(s) PO QHS 201703/11/2018 Inactive ropinirole 2 mg tablet RxNorm: 910348 1 Tablet(s) PO QHS 02/28/2018 0 03/28/2018 Inactive ropinirole 2 mg tablet RxNorm: 711438 1 Tablet(s) PO QHS 02/28/2018 0 02/27/2018 Inactive gabapentin 300 mg capsule RxNorm: 798198 1 Capsule(s) PO QHS 201702/27/2018 Inactive pantoprazole 40 mg tablet,delayed release RxNorm: 540068 1 Tablet(s) PO QD forstomach 01/23/2018 05/22/2018 Inactive Voltaren 1 % topical gel RxNorm: 900737 1 Gram(s) TOP QID to ri ght knee 01/23/2018 02/04/2018 Inactive metformin ER 500 mg tablet,extended release 24hr RxNorm: 860 975 2 Tablet(s) PO BID 01/09/2018 12/08/2018 Inactive Requip 1 mg tablet RxNorm: 091412 1 Tablet(s) PO QHS 01/09/201802/27 Inactive prednisone 20 mg tablet RxNorm: 570513 1 Tablet(s) PO T ID for 3 days then 1 po BID for 3 days then one daily for 3 days 01/02/2018 02/03/2018 Inactiv e Levaquin 500 mg tablet RxNorm: 096370 1 Tablet(s) PO QD 01/02/2018 Inactive ProAir HFA 90 mcg/actuation aerosol inhaler RxNorm: 697959 2 Puff(s) INH Q4H as needed 12/28/2017 No Stop Date Active please switch to ventolin if insurance doesn't cover montelukast 10 mg tablet RxNorm: 525117 1 Tablet(s) PO QD 12/28/2017 02/03/2018 Inactive Levaquin 500 mg tablet RxNorm: 686185 1 Tablet(s) PO QD 12/21/2017 Inactive ProAir HFA 90 mcg/actuation aerosol inhaler RxNorm: 611967 2 Puff(s) INH Q4H as needed 12/21/2017 12/27/2017 Inactive please switch to ventolin if insurance doesn't cover doxycycline hyclate 100 mg tablet RxNorm: 532632 1 Tablet(s) PO BID 12/17/2017 12/26/2017 Inactive Levemir FlexTouch U-100 Insulin 100 unit/mL (3 mL) sub cutaneous pen RxNorm: 894633 20 Unit(s) SQ QD with pen needles---Due for labs 12/11/2017 02/03/2018 Inactive Requip 1 mg tablet RxNorm: 917366 1 Tablet(s) PO QHS 12/10/201712/09 Inactive Requip 1 mg tablet RxNorm: 702869 1 Tablet(s) PO QHS 12/10/201701/09 Inactive albuterol sulfate 2.5 mg/3 mL (0.083 %) solution for n ebulization RxNorm: 864065 Milliliter(s) INH USE 1 VIAL IN NEBULIZE R EVERY FOUR HOURS NEEDED FOR WHEEZING OR SHORTNESS OF BREATH 12/05/2017 06/13/2018 Inactive Generic For:*PROVENTIL 0.83 MG/ML SOLUTN 06/13/2013 2:04:46 PM Tudorza Pressair 400 mcg/actuation breath activated RxNorm: 0165345 1 Puff(s) INH BID 12/03/2017 12/10/2017 Inactive Levemir FlexTouch U-100 Insulin 100 unit/mL (3 mL) sub cutaneous pen RxNorm: 978432 10 Unit(s) SQ QD with pen needles---Due for labs 11/16/2017 12/10/2017 Inactive Zofran ODT 4 mg disintegrating tablet RxNorm: 784976 1 Tablet(s) PO Q4H as needed for nausea 10/17/2017 02/04/2018 Inactive Efudex 5 % topical cream RxNorm: 871228 Application TOP QD prn to precancer skin lesions 10/17/2017 02/03/2018 Inactive Sinemet CR 50 mg-200 mg tablet,extended release RxNorm: 8343 41 1 Tablet(s) PO BID 10/17/2017 02/05/2018 Inactive Sinemet CR 50 mg-200 mg tablet,extended release RxNorm: 8343 41 1 Tablet(s) PO QHS 09/25/2017 10/16/2017 Inactive gabapentin 600 mg tablet RxNorm: 510448 1 Tablet(s) PO BID 08/15/20 17 08/14/2017 Inactive gabapentin 600 mg tablet RxNorm: 051948 1 Tablet(s) PO BID 08/15/20 17 12/10/2017 Inactive Novolog U-100 Insulin aspart 100 unit/mL subcutaneous soluti on RxNorm: 151939 10 Unit(s) SQ AC 08/15/2017 02/03/2018 Inactive Novolog 100 unit/mL subcutaneous solution RxNorm: 322287 10 Uni t(s) SQ AC 08/13/2017 08/14/2017 Inactive prednisone 20 mg tablet RxNorm: 975170 2 Tablet(s) PO QD 08/02/201710/04/2016 Inactive gabapentin 600 mg tablet RxNorm: 932749 Tablet(s) 1 Tab let(s) PO QHS replaces 300mg dose 07/09/2017 08/14/2017 Inactive Breo Ellipta 100 mcg-25 mcg/dose powder for inhalation RxNor m: 2132549 1 Unit Dose INH QD 07/02/2017 08/30/2017 Inactive Tudorza Pressair 400 mcg/actuation breath activated RxNorm: 4291679 1 Puff(s) INH BID 06/18/2017 12/02/2017 Inactive gabapentin 600 mg tablet RxNorm: 416506 1 Tablet(s) PO QHS repl aces 300mg dose 06/14/2017 07/08/2017 Inactive metformin ER 1,000 mg tablet,extended release 24hr RxNorm: 1 975266 1 Tablet(s) PO BID 05/29/2017 01/08/2018 Inactive cyclobenzaprine 5 mg tablet RxNorm: 130584 1 Tablet(s) PO TID 05/2906/07/2017 Inactive metformin ER 1,000 mg tablet,extended release 24hr RxNorm: 8 27979 1 Tablet(s) PO BID 05/25/2017 05/28/2017 Inactive metformin ER 1,000 mg tablet,extended release 24hr RxNorm: 8 85718 1 Tablet(s) PO BID 05/22/2017 05/24/2017 Inactive Amaryl 2 mg tablet RxNorm: 323408 1 Tablet(s) PO BID 05/01/201702/03 Inactive glimepiride 2 mg tablet RxNorm: 885743 1 Tablet(s) PO BID 04/19/2017 02/03/2018 Inactive ferrous sulfate 325 mg (65 mg iron) tablet RxNorm: 985415 1 Tab let(s) PO QHS 04/17/2017 02/03/2018 Inactive Requip 4 mg tablet RxNorm: 776234 1 Tablet(s) PO BID 04/12/201704/11 Inactive Requip 4 mg tablet RxNorm: 565466 1 Tablet(s) PO BID 04/12/201704/15 Inactive Levemir FlexTouch 100 unit/mL (3 mL) subcutaneous insulin pe n RxNorm: 620924 10 Unit(s) SQ QD with pen needles---Due for labs 04/05/2017 11/15/2017 In active Silenor 3 mg tablet RxNorm: 755795 1 Tablet(s) PO QHS 04/05/201709/25 Inactive ropinirole 4 mg tablet RxNorm: 147168 1 Tablet(s) PO QHS 03/29/2017 0 04/01/2017 Inactive ropinirole 4 mg tablet RxNorm: 878553 1 Tablet(s) PO QHS 03/29/2017 0 03/28/2017 Inactive Requip 4 mg tablet RxNorm: 483320 1 Tablet(s) PO QHS 03/28/201704/01 Inactive gabapentin 600 mg tablet RxNorm: 473347 1 Tablet(s) PO QHS repl aces 300mg dose 03/28/2017 04/15/2017 Inactive Requip 4 mg tablet RxNorm: 582525 1 Tablet(s) PO QHS 03/23/201703/27 Inactive gabapentin 600 mg tablet RxNorm: 582822 1 Tablet(s) PO QHS 03/13/20 17 03/12/2017 Inactive gabapentin 600 mg tablet RxNorm: 277081 1 Tablet(s) PO QHS 03/13/20 17 03/27/2017 Inactive gabapentin 300 mg capsule RxNorm: 748786 1 Capsule(s) PO QPM 201603/12/2017 Inactive Generic For:NEURONTIN 300 MG CAPSULE 01/22/2017 10:10:39 AM losartan 100 mg tablet RxNorm: 309148 1 Tablet(s) PO QD replace s lisinopril 02/21/2017 06/17/2018 Inactive gabapentin 300 mg capsule RxNorm: 440477 TAKE 1 CAPSULE BY MOUT H EVERY EVENING 01/22/2017 02/21/2017 Inactive Generic For:NEURONTI N 300 MG CAPSULE 01/22/2017 10:10:39 AM gabapentin 300 mg capsule RxNorm: 579139 1 Capsule(s) PO QPM 201601/21/2017 Inactive Requip 4 mg tablet RxNorm: 110116 1 Tablet(s) PO QHS 12/21/201603/20 Inactive Effient 10 mg tablet RxNorm: 902496 1 Tablet(s) PO QD 12/12/201612/23 Inactive gabapentin 300 mg capsule RxNorm: 011631 1 Capsule(s) PO QPM 201612/03/2016 Inactive gabapentin 300 mg capsule RxNorm: 313415 1 Capsule(s) PO QPM 201612/13/2016 Inactive Requip 4 mg tablet RxNorm: 516362 1 Tablet(s) PO QHS 11/28/201612/21 Inactive atorvastatin 40 mg tablet RxNorm: 054135 Tablet(s) 1 Tablet(s) PO Q D 11/22/2016 08/18/2017 Inactive atorvastatin 40 mg tablet RxNorm: 232889 1 Tablet(s) PO QD 11/23/19 17 11/21/2016 Inactive ropinirole 1 mg tablet RxNorm: 755340 2.5 Tablet(s) PO QPM for legs/sleep 11/14/2016 11/27/2016 Inactive nystatin 100,000 unit/mL oral suspension RxNorm: 540595 5 Unit(s) PO QID swish and spit 10/31/2016 02/03/2018 Inactive fluconazole 100 mg tablet RxNorm: 207654 1 Tablet(s) PO QD 10/31/19 17 11/09/2016 Inactive doxycycline hyclate 100 mg capsule RxNorm: 4257489 1 Capsule(s) PO BID 10/03/2016 10/12/2016 Inactive Levemir FlexTouch 100 unit/mL (3 mL) subcutaneous insulin pe n RxNorm: 830993 10 Unit(s) SQ QD with pen needles 09/18/2016 04/04/2017 Inactive amitriptyline 25 mg tablet RxNorm: 889004 1 Tablet(s) P O QHS as needed for sleep 09/04/2016 10/17/2016 Inactive ropinirole 1 mg tablet RxNorm: 490903 1.5 Tablet(s) PO QPM for legs/sleep 09/04/2016 11/13/2016 Inactive amitriptyline 25 mg tablet RxNorm: 595176 1 Tablet(s) P O QHS as needed for sleep 08/22/2016 09/03/2016 Inactive clopidogrel 75 mg tablet RxNorm: 689843 1 Tablet(s) PO QD 08/10/2016 10/17/2016 Inactive Zoloft 100 mg tablet RxNorm: 240050 2 Tablet(s) PO QHS 08/10/2016 Inactive atorvastatin 40 mg tablet RxNorm: 444949 1 Tablet(s) PO QD 08/10/20 16 10/17/2016 Inactive ropinirole 1 mg tablet RxNorm: 043463 1 Tablet(s) PO QPM for le gs/sleep 08/10/2016 09/03/2016 Inactive losartan 100 mg tablet RxNorm: 788191 1 Tablet(s) PO QD replace s lisinopril 07/20/2016 02/21/2017 Inactive Zofran 4 mg tablet RxNorm: 446738 1 Tablet(s) PO Q4H as needed for nausea 07/06/2016 10/17/2016 Inactive Flagyl 500 mg tablet RxNorm: 544324 1 Tablet(s) PO TID 07/06/2016 Inactive Plavix 75 mg tablet RxNorm: 510730 1 Tablet(s) PO QD 06/08/201607/05 Inactive isosorbide mononitrate ER 30 mg tablet,extended release 24 h r RxNorm: 266876 1 Tablet(s) PO QAM 06/08/2016 08/09/2016 Inactive atorvastatin 40 mg tablet RxNorm: 211153 1 Tablet(s) PO QD 06/08/20 16 08/09/2016 Inactive hydrochlorothiazide 12.5 mg tablet RxNorm: 169448 1 Tablet(s) PO QA M 06/08/2016 07/05/2016 Inactive metformin ER 1,000 mg tablet,extended release 24hr RxNorm: 8 83791 1 Tablet(s) PO BID 06/08/2016 09/05/2016 Inactive metoprolol tartrate 25 mg tablet RxNorm: 346852 1/2 Tablet(s) PO BI D 06/08/2016 08/09/2016 Inactive Zoloft 100 mg tablet RxNorm: 171225 2 Tablet(s) PO QHS 04/03/2016 Inactive metformin ER 1,000 mg tablet,extended release 24hr RxNorm: 8 65615 Tablet(s) 1 Tablet(s) PO QD 03/30/2016 12/18/2018 Inactive Levemir FlexTouch 100 unit/mL (3 mL) subcutaneous insulin pe n RxNorm: 789386 10 Unit(s) SQ QD 03/09/2016 03/08/2016 Inactive Levemir FlexTouch 100 unit/mL (3 mL) subcutaneous insulin pe n RxNorm: 392553 10 Unit(s) SQ QD with pen needles 03/09/2016 03/20/2016 Inactive Mobic 15 mg tablet RxNorm: 221691 1 Tablet(s) PO QD for foot pain 0 02/17/2016 03/17/2016 Inactive Zoloft 100 mg tablet RxNorm: 849150 1 1/2 Tablet(s) PO QHS 01/31/20 16 04/02/2016 Inactive omeprazole 20 mg capsule,delayed release RxNorm: 846512 TAKE 2 CAPSULES BY MOUTH EVERY DAY 01/12/2016 08/09/2016 Inactive Generic For:*CHERYL LOSEC [address] 01/12/2016 8:58:34 AM Zoloft 100 mg tablet RxNorm: 604663 1/2 Tablet(s) PO QH S for 1 week then 1 tablet po q HS 12/30/2015 01/27/2016 Inactive Ventolin HFA 90 mcg/actuation aerosol inhaler RxNorm: 831174 2 Puff(s) INH QID as needed for shortness of breath 12/30/2015 02/03/2018 Inactive [AttnRPh: Saving apply/adjudicate RxGRP:SG20 RxBIN:[id number] RxPCN: ID#:[id number]] metformin ER 1,000 mg tablet,extended release 24hr RxNorm: 8 24605 1 Tablet(s) PO QD 12/20/2015 03/18/2016 Inactive clindamycin 300 mg capsule RxNorm: 395546 1 Capsule(s) PO TID 12/0512/15/2015 Inactive mupirocin 2 % topical cream RxNorm: 005356 TOP to facial lesion s twice daily 11/15/2015 12/15/2015 Inactive cefdinir 300 mg capsule RxNorm: 015422 1 Capsule(s) PO BID 11/15/19 16 11/24/2015 Inactive Medrol (Gui) 4 mg tablets in a dose pack RxNorm: 460819 Tablet(s) PO as directed 10/11/2015 12/15/2015 Inactive albuterol sulfate 2.5 mg/3 mL (0.083 %) solution for n ebulization RxNorm: 753044 INH USE 1 VIAL IN NEBULIZER EVERY FOUR H OURS NEEDED FOR WHEEZING OR SHORTNESS OF BREATH 10/05/2015 10/04/2015 Inactive Generic For:*PRO VENTIL 0.83 MG/ML SOLUTN 06/13/2013 2:04:46 PM doxycycline hyclate 100 mg capsule RxNorm: 0321206 1 Capsule(s) PO BID 10/05/2015 10/14/2015 Inactive albuterol sulfate 2.5 mg/3 mL (0.083 %) solution for n ebulization RxNorm: 581114 Milliliter(s) INH USE 1 VIAL IN NEBULIZE R EVERY FOUR HOURS NEEDED FOR WHEEZING OR SHORTNESS OF BREATH Dx: J44.9 10/05/2015 12/05/2017 Inacti ve Generic For:*PROVENTIL 0.83 MG/ML SOLUTN 06/13/2013 2:04:46 PM albuterol sulfate 2.5 mg/3 mL (0.083 %) solution for n ebulization RxNorm: 356165 3 Milliliter(s) INH USE 1 VIAL IN NEBULI ZER EVERY FOUR HOURS NEEDED FOR WHEEZING OR SHORTNESS OF BREATH 09/06/2015 10/04/2015 Inactive Generic For:*PROVENTIL 0.83 MG/ML SOLUTN 06/13/2013 2:04:46 PM Tradjenta 5 mg tablet RxNorm: 5447665 2 Tablet(s) PO QD 07/22/2015 Inactive albuterol sulfate 2.5 mg/3 mL (0.083 %) solution for n ebulization RxNorm: 776929 3 Milliliter(s) INH USE 1 VIAL IN NEBULI ZER EVERY FOUR HOURS NEEDED FOR WHEEZING OR SHORTNESS OF BREATH 06/29/2015 09/05/2015 Inactive Generic For:*PROVENTIL 0.83 MG/ML SOLUTN 06/13/2013 2:04:46 PM albuterol sulfate 2.5 mg/3 mL (0.083 %) solution for n ebulization RxNorm: 065989 Milliliter(s) INH USE 1 VIAL IN NEBULIZE R EVERY FOUR HOURS NEEDED FOR WHEEZING OR SHORTNESS OF BREATH 06/29/2015 12/04/2017 Inactive Generic For:*PROVENTIL 0.83 MG/ML SOLUTN 06/13/2013 2:04:46 PM doxycycline hyclate 100 mg tablet RxNorm: 732027 1 Tablet(s) PO BID 06/28/2015 07/07/2015 Inactive losartan 100 mg tablet RxNorm: 719458 1 Tablet(s) PO QD -replac es lisinopril 06/14/2015 09/05/2015 Inactive metformin ER 1,000 mg tablet,extended release 24hr RxNorm: 8 45577 1 Tablet(s) PO QD 06/14/2015 09/11/2015 Inactive losartan 100 mg tablet RxNorm: 378520 1 Tablet(s) PO QD -replac es lisinopril 06/14/2015 12/10/2015 Inactive Zocor 20 mg tablet RxNorm: 540808 Tablet(s) Tablet(s) 1 Tablet(s) PO QD -needs lipids labs 06/14/2015 06/14/2015 Inactive atorvastatin 40 mg tablet RxNorm: 443391 1 Tablet(s) PO QD repl aces simvastatin 06/14/2015 12/10/2015 Inactive loratadine 10 mg tablet RxNorm: 020093 Tablet(s) 1 Tablet(s) PO QD for drainage 06/14/2015 06/07/2016 Inactive Celexa 40 mg tablet RxNorm: 860347 1 Tablet(s) PO QD TA KE ONE (1) TABLET BY MOUTH DAILY 06/14/2015 12/29/2015 Inactive Generic For:HARJINDER XA 40 MG TABLET clindamycin 300 mg capsule RxNorm: 976108 2 Capsule(s) PO BID 06/0306/12/2015 Inactive metformin ER 1,000 mg tablet,extended release 24hr RxNorm: 8 45543 1 Tablet(s) PO QD 06/03/2015 06/02/2015 Inactive metformin ER 1,000 mg tablet,extended release 24hr RxNorm: 8 81386 1 Tablet(s) PO QD 06/03/2015 06/13/2015 Inactive mupirocin 2 % topical ointment RxNorm: 784581 TOP apply to open lesion of knee twice daily 06/03/2015 01/30/2016 Inactive Zocor 20 mg tablet RxNorm: 736357 Tablet(s) 1 Tablet(s ) PO QD -needs lipids labs 05/13/2015 06/13/2015 Inactive Celexa 40 mg tablet RxNorm: 125721 1 Tablet(s) PO QD TA KE ONE (1) TABLET BY MOUTH DAILY 05/13/2015 06/13/2015 Inactive Generic For:HARJINDER XA 40 MG TABLET Zocor 20 mg tablet RxNorm: 834582 Tablet(s) 1 Tablet(s ) PO QD -needs lipids labs 02/23/2015 03/24/2015 Inactive loratadine 10 mg tablet RxNorm: 021089 1 Tablet(s) PO QD for dr saenz 12/24/2014 06/13/2015 Inactive Zocor 20 mg tablet RxNorm: 094047 1 Tablet(s) PO QD -needs lipi ds labs 11/17/2014 02/23/2015 Inactive Celexa 40 mg tablet RxNorm: 667465 1 Tablet(s) PO QD 1 Tablet(s) PO QD 1 Tablet(s) PO QD Generic OKAY 11/11/2014 05/13/2015 Inactive Zocor 20 mg tablet RxNorm: 090788 1 Tablet(s) PO QD -needs lipi ds labs 11/11/2014 11/16/2014 Inactive omeprazole 20 mg capsule,delayed release RxNorm: 739592 2 Capsule(s) PO QD TAKE 2 CAPSULES BY MOUTH DAILY 10/27/2014 04/24/2015 Inactive Generi c For:*PRILOSEC 20 MG CAPSULE trazodone 50 mg tablet RxNorm: 790920 1 1/2 Tablet(s) PO QHS 201412/29/2015 Inactive losartan 100 mg tablet RxNorm: 872509 1 Tablet(s) PO QD -replac es lisinopril 10/26/2014 04/23/2015 Inactive Levaquin 500 mg tablet RxNorm: 376122 1 Tablet(s) PO QD 10/08/2014 Inactive Levaquin 500 mg tablet RxNorm: 593401 1 Tablet(s) PO QD 10/08/2014 Inactive Diflucan 100 mg tablet RxNorm: 403027 1 Tablet(s) PO QD 10/06/2014 Inactive DuoNeb 0.5 mg-3 mg(2.5 mg base)/3 mL solution for nebulizati on RxNorm: 4778232 3 Milliliter(s) INH QID 09/23/2014 08/09/2016 Inactive Ventolin HFA 90 mcg/actuation aerosol inhaler RxNorm: 489953 2 Puff(s) INH QID as needed for shortness of breath 09/21/2014 12/29/2015 Inactive [AttnRPh: Saving apply/adjudicate RxGRP:SG20 RxBIN:[id number] RxPCN: ID#:[id number]] promethazine-codeine 6.25 mg-10 mg/5 mL syrup RxNorm: 323860 1 Teaspoon(s) PO QHS as needed for cough 09/08/2014 09/20/2014 Inactive prednisone 20 mg tablet RxNorm: 092711 1 Tablet(s) PO BID 09/02/2014 09/08/2014 Inactive promethazine-codeine 6.25 mg-10 mg/5 mL syrup RxNorm: 924266 1 Teaspoon(s) PO Q4H 09/02/2014 09/20/2014 Inactive doxycycline monohydrate 100 mg capsule RxNorm: 143955 1 Capsule (s) PO BID 09/02/2014 09/07/2014 Inactive Tessalon Perles 100 mg capsule RxNorm: 763215 1 Capsule (s) PO TID as needed for cough 08/31/2014 09/20/2014 Inactive Actos 15 mg tablet RxNorm: 585930 1 Tablet(s) PO QAM 1 Tablet(s ) PO QAM 08/26/2014 09/20/2014 Inactive loratadine 10 mg tablet RxNorm: 439369 1 Tablet(s) PO QD for dr saenz 08/26/2014 10/26/2014 Inactive Zithromax 500 mg tablet RxNorm: 778739 1 Tablet(s) PO QD 08/25/2014 1 11/01/2013 Inactive Zithromax 500 mg tablet RxNorm: 713869 1 Tablet(s) PO QD 08/25/2014 1 10/25/2013 Inactive Trazadone 75mg Tablet RxNorm: 1 Tablet(s) PO QHS 08/10/20142018 Inactive Zocor 20 mg tablet RxNorm: 867565 1 Tablet(s) PO QD 08/10/20142014 Inactive Trazadone 75mg Tablet RxNorm: 1 Tablet(s) PO QHS as need ed for sleep 08/10/2014 10/08/2014 Inactive Celexa 40 mg tablet RxNorm: 918138 1 Tablet(s) PO QD 1 Tablet(s) PO QD 1 Tablet(s) PO QD Generic OKAY 06/09/2014 10/06/2014 Inactive Actos 15 mg tablet RxNorm: 383516 1 Tablet(s) PO QAM 05/12/201408/26 Inactive lisinopril 20 mg tablet RxNorm: 093979 1 Tablet(s) PO QD 05/12/2014 0 10/26/2014 Inactive TAKE ONE TABLET BY MOUTH EVERY DAY;Gener ic For:*PRINIVIL 20 MG TABLET [AttnRPh: Saving apply/adjudicate RxGRP:SG20 RxBIN:[id number] RxPCN: ID#:[id number]] hydrocodone 5 mg-acetaminophen 325 mg tablet RxNorm: 931602 1 Tablet(s) PO TID as needed for pain for severe pain 04/30/2014 08/09/2014 Inactive hydrocodone 5 mg-acetaminophen 325 mg tablet RxNorm: 703904 1 Tablet(s) PO TID as needed for pain for severe pain 04/17/2014 04/29/2014 Inactive doxycycline hyclate 100 mg capsule RxNorm: 073430 1 Capsule(s) PO BID 03/05/2014 03/04/2014 Inactive doxycycline hyclate 100 mg capsule RxNorm: 255774 1 Capsule(s) PO BID 03/05/2014 03/14/2014 Inactive albuterol sulfate 2.5 mg/3 mL (0.083 %) solution for n ebulization RxNorm: 764266 Milliliter(s) INH USE 1 VIAL IN NEBULIZE R EVERY FOUR HOURS NEEDED FOR WHEEZING OR SHORTNESS OF BREATH 03/02/2014 06/29/2015 Inactive Generic For:*PROVENTIL 0.83 MG/ML SOLUTN 06/13/2013 2:04:46 PM Celexa 40 mg tablet RxNorm: 609656 1 Tablet(s) PO QD 1 Tablet(s) PO QD replaces lexapro. Generic OKAY 01/13/2014 06/09/2014 Inactive Actos 15 mg tablet RxNorm: 313189 1 Tablet(s) PO QAM 01/07/201405/12 Inactive lisinopril 20 mg tablet RxNorm: 099461 1 Tablet(s) PO QD 12/08/2013 0 05/12/2014 Inactive TAKE ONE TABLET BY MOUTH EVERY DAY;Gener ic For:*PRINIVIL 20 MG TABLET cefdinir 300 mg capsule RxNorm: 988100 2 Capsule(s) PO QD 11/10/2013 08/09/2014 Inactive cefdinir 300 mg capsule RxNorm: 619492 2 Capsule(s) PO QD 10/09/2013 10/15/2013 Inactive Actos 15 mg tablet RxNorm: 625474 1 Tablet(s) PO QAM 10/09/201301/06 Inactive doxycycline hyclate 100 mg capsule RxNorm: 1153126 1 Capsule(s) PO Q12H 09/18/2013 09/27/2013 Inactive omeprazole 20 mg capsule,delayed release RxNorm: 676505 2 Capsule(s) PO QD TAKE 2 CAPSULES BY MOUTH DAILY 09/03/2013 03/01/2014 Inactive Generi c For:*PRILOSEC [address] Celexa 40 mg tablet RxNorm: 547465 1 Tablet(s) PO QD re places lexapro. Generic OKAY 09/03/2013 01/13/2014 Inactive Symbicort 160 mcg-4.5 mcg/actuation HFA aerosol inhaler RxNo rm: 7951285 2 Puff(s) INH BID 08/13/2013 03/23/2014 Inactive metformin 1,000 mg tablet RxNorm: 945389 1 Tablet(s) PO BID 013 08/12/2013 Inactive TAKE ONE TABLET BY MOUTH TWI CE DAILY;Generic For:GLUCOPHAGE 1,000 MG TABLET 08/27/12 Thank you Actos 15 mg tablet RxNorm: 206709 1 Tablet(s) PO QAM 06/23/201310/09 Inactive lisinopril 20 mg tablet RxNorm: 594047 1 Tablet(s) PO QD 06/23/2013 0 12/08/2013 Inactive TAKE ONE TABLET BY MOUTH EVERY DAY;Gener ic For:*PRINIVIL 20 MG TABLET albuterol sulfate 2.5 mg/3 mL (0.083 %) solution for n ebulization RxNorm: 663900 Solution for Nebulization INH USE 1 VIAL IN NEBULIZER EVERY FOUR HOURS NEEDED FOR WHEEZING OR SHORTNESS OF BREATH 06/16/2013 03/01/2014 Inactive Generic For:*PROVENTIL 0.83 MG/ML SOLUTN 06/13/2013 2:04:46 PM prednisone 10 mg tablet RxNorm: 224509 1 Tablet(s) PO BID 04/09/2013 04/13/2013 Inactive AndroGel 1.25 gram/actuation (1%) Transdermal Gel Pump RxNorm: 2 73827 TD 04/09/2013 08/09/2014 Inactive APPLY 4 PUMPS OF GEL AT BEDTIME DIRECTED;WC (Appended: Controlled substance eRx refill - RxReferenceNumber: [id number]) azithromycin 250 mg tablet RxNorm: 477822 2 Tablet(s) PO QD 013 04/16/2013 Inactive Amaryl 2 mg tablet RxNorm: 492082 1 Tablet(s) PO BID N eeds appt in 1 month (around March 21) 02/18/2013 08/12/2013 Inactive Amaryl 2 mg tablet RxNorm: 150874 1 Tablet(s) PO BID 02/18/201302/17 Inactive metformin 1,000 mg tablet RxNorm: 298572 1 Tablet(s) PO BID 013 07/27/2013 Inactive TAKE ONE TABLET BY MOUTH TWI CE DAILY;Generic For:GLUCOPHAGE 1,000 MG TABLET 08/27/12 Thank you Actos 15 mg tablet RxNorm: 285230 1 Tablet(s) PO QAM 02/04/201306/03 Inactive albuterol sulfate 2.5 mg/3 mL (0.083 %) Neb Solution RxNorm: 478849 1 Unit Dose INH Q4H prn wheezing or shortness of breath 01/30/2013 06/15/2013 Inac tive Medrol (Gui) 4 mg tablets in a dose pack RxNorm: 220990 Tablet(s) PO as directed 01/20/2013 07/15/2013 Inactive cefdinir 300 mg capsule RxNorm: 332167 1 Capsule(s) PO BID anti biotic 01/20/2013 01/29/2013 Inactive lisinopril 20 mg tablet RxNorm: 073410 Tablet(s) PO 01/13/20132012 Inactive TAKE ONE TABLET BY MOUTH EVERY DAY;Gener ic For:*PRINIVIL 20 MG TABLET citalopram 40 mg tablet RxNorm: 457339 Tablet(s) PO 01/13/20132013 Inactive TAKE ONE (1) TABLET BY MOUTH DAILY;Gener ic For:CELEXA 40 MG TABLET omeprazole 20 mg capsule,delayed release RxNorm: 505462 Capsule(s) PO TAKE 2 CAPSULES BY MOUTH DAILY 11/15/2012 09/03/2013 Inactive Generic For:*PRILOSEC [address] amoxicillin 875 mg tablet RxNorm: 066887 1 Tablet(s) PO BID 013 10/28/2012 Inactive Actos 30 mg tablet RxNorm: 634070 1 Tablet(s) PO QD 09/23/20122011 Inactive Actos 15 mg tablet RxNorm: 341908 1 Tablet(s) PO QAM 09/23/201209/22 Inactive Actos 15 mg tablet RxNorm: 624614 1 Tablet(s) PO QAM 09/23/201202/04 Inactive prednisone 20 mg tablet RxNorm: 608245 1 Tablet(s) PO BID 08/28/2012 09/03/2012 Inactive doxycycline hyclate 100 mg tablet RxNorm: 5052661 1 Tablet(s) PO BI D 08/28/2012 09/06/2012 Inactive metformin 1,000 mg tablet RxNorm: 137327 Tablet(s) PO 08/27/201201/22 Inactive TAKE ONE TABLET BY MOUTH TWICE DAILY;Gen lewis For:GLUCOPHAGE 1,000 MG TABLET 08/27/12 Thank you citalopram 40 mg tablet RxNorm: 333304 Tablet(s) PO 07/30/20122012 Inactive TAKE ONE (1) TABLET BY MOUTH DAILY;Gener ic For:CELEXA 40 MG TABLET lisinopril 20 mg tablet RxNorm: 397913 Tablet(s) PO 07/30/20122012 Inactive TAKE ONE TABLET BY MOUTH EVERY DAY;Gener ic For:*PRINIVIL 20 MG TABLET AndroGel 1.25 gram/actuation (1%) Transdermal Gel Pump RxNor m: [id number] Gel in Metered-Dose Pump TD 07/09/2012 04/08/2013 Inactive APPLY 4 PUM PS OF GEL AT BEDTIME DIRECTED;WC (Appended: Controlled substance eRx refill - RxReferenceNumber: [id number]) citalopram 40 mg tablet RxNorm: 463660 Tablet(s) PO 07/01/20122011 Inactive TAKE ONE (1) TABLET BY MOUTH DAILY;Gener ic For:CELEXA 40 MG TABLET metformin 1,000 mg tablet RxNorm: 870570 1 Tablet(s) PO BID 012 08/25/2012 Inactive TAKE 1 TABLET BY MOUTH TWICE DAILY;Generic For:GLUCOPHAGE 1,000 MG TABLET meclizine 25 mg Tab RxNorm: 105357 1 Tablet(s) PO QID prn dizziness 05/09/2012 05/18/2012 Inactive lisinopril 20 mg tablet RxNorm: 081735 Tablet(s) PO QD 04/22/2012 Inactive TAKE ONE (1) TABLET BY MOUTH DAILY;Gener ic For:*PRINIVIL 20 MG TABLET metformin 1,000 mg tablet RxNorm: 903852 Tablet(s) PO 03/19/201212/2011 Inactive TAKE 1 TABLET BY MOUTH TWICE DAILY;Gener ic For:GLUCOPHAGE 1,000 MG TABLET cefdinir 300 mg Cap RxNorm: 330835 1 Capsule(s) PO BID 11/28/2011 Inactive cefdinir 300 mg Cap RxNorm: 682673 1 Capsule(s) PO BID 11/01/2011 Inactive citalopram 40 mg tablet RxNorm: 385645 Tablet(s) PO 10/30/20112011 Inactive TAKE ONE (1) TABLET BY MOUTH DAILY;Gener ic For:CELEXA 40 MG TABLET cefdinir 300 mg Cap RxNorm: 793858 1 Capsule(s) PO BID 10/02/2011 Inactive metformin 1,000 mg Tab RxNorm: 090115 1 Tablet(s) PO BID 09/28/2011 0 01/25/2012 Inactive citalopram 40 mg Tab RxNorm: 049675 1 Tablet(s) PO QD 09/28/201111/2011 Inactive omeprazole 20 mg capsule,delayed release RxNorm: 551249 2 Capsu le(s) PO QD 09/28/2011 03/25/2012 Inactive lisinopril 20 mg Tab RxNorm: 714074 Tablet(s) PO 08/21/2011 04/21/2012 Inactive TAKE ONE (1) TABLET BY MOUTH DAILY;Generic For:*PRINIVIL 20 MG TABLET AndroGel 1.25 gram/actuation (1%) Transdermal Gel Pump RxNor m: [id number] Gel in Metered-dose Pump TD 08/21/2011 07/09/2012 Inactive APPLY 4 PUM PS OF GEL AT BEDTIME DIRECTED (Appended: Controlled substance eRx refill - RxReferenceNumber: [id number]) Lantus Solostar 100 unit/mL (3 mL) Sub-Q Insulin Pen RxNorm: 138705 30 Unit(s) SQ QD 06/20/2011 05/08/2012 Inactive Lantus Solostar 100 unit/mL (3 mL) Sub-Q Insulin Pen RxNorm: 825588 30 Unit(s) SQ QD 06/19/2011 06/19/2011 Inactive metformin 1,000 mg Tab RxNorm: 838846 1 Tablet(s) PO BID 05/12/2011 1 11/09/2010 Inactive citalopram 40 mg Tab RxNorm: 034498 1 Tablet(s) PO QD 03/06/201105/2011 Inactive metformin 1,000 mg Tab RxNorm: 353105 1 Tablet(s) PO BID 12/27/2010 0 04/25/2011 Inactive lisinopril 20 mg Tab RxNorm: 366839 Tablet(s) PO TAKE 1 TABLET BY MOUTH EVERY DAY;Generic For:*PRINIVIL 20 MG TABLET 12/26/2010 08/20/2011 Inactive Ceftin 500 mg Tab RxNorm: 962993 1 Tablet(s) PO BID 12/19/20102010 Inactive omeprazole 20 mg Cap, Delayed Release RxNorm: 677896 2 Capsule( s) PO QD 09/13/2010 03/11/2011 Inactive Byetta 10 mcg/0.04 mL per dose Sub-Q Pen Injector RxNorm: 84 7913 1 Unit Dose SQ BID 09/07/2010 10/06/2010 Inactive Celexa 40 mg tablet RxNorm: 898827 1 Tablet(s) PO QD re places lexapro. Generic OKAY 08/09/2010 02/04/2011 Inactive Actos 30 mg Tab RxNorm: 531000 1 Tablet(s) PO QD 08/09/2010 04/02/2011 Inactive lisinopril 20 mg Tab RxNorm: 605789 1 Tablet(s) PO QD 08/09/201011/22 Inactive metformin 1,000 mg Tab RxNorm: 652952 1 Tablet(s) PO BID 08/09/2010 0 12/06/2010 Inactive Metformin 1,000 mg Tab RxNorm: 695906 1 Tablet(s) PO BID 04/26/2010 0 04/25/2010 Inactive metformin 1,000 mg Tab RxNorm: 934712 1 Tablet(s) PO BID 04/26/2010 1 Inactive Lomotil 2.5 mg-0.025 mg Tab RxNorm: 8181995 1 Tablet(s) PO TID 1-2 TABS THREE TIMES DAILY 04/05/2010 04/07/2010 Inactive Mupirocin 2 % Topical Cream RxNorm: 104275 TOP BID 04/05/201003/25 Inactive lisinopril 20 mg Tab RxNorm: 569850 1 Tablet(s) PO QD 03/29/201010/2009 Inactive Actos 30 mg Tab RxNorm: 408008 1 Tablet(s) PO QD 03/29/2010 07/26/2010 Inactive Lisinopril 20 mg Tab RxNorm: 037268 1 Tablet(s) PO QD 02/27/201001/2010 Inactive Actos 30 mg Tab RxNorm: 097552 1 Tablet(s) PO QD 02/14/2010 03/28/2010 Inactive Celexa 40 mg Tab RxNorm: 614261 1 Tablet(s) PO QD replaces lexapro 01/13/2010 07/11/2010 Inactive Cyclobenzaprine 10 mg Tab RxNorm: 842532 1 Tablet(s) PO TID prn spasm 12/23/2009 01/21/2010 Inactive Cyclobenzaprine 10 mg Tab RxNorm: 512556 1 Tablet(s) PO TID 010 12/22/2009 Inactive Hydrocodone-Acetaminophen 7.5 mg-750 mg Tab RxNorm: 415505 1 Ta blet(s) PO Q4-6H 12/23/2009 12/22/2009 Inactive aspirin 81 mg tablet RxNorm: 170112 1 Tablet(s) PO QD No Start Date Active isosorbide mononitrate ER 60 mg tablet,extended release 24 h r RxNorm: 988091 1 Tablet(s) PO QD No Start Date Active amlodipine 5 mg tablet RxNorm: 595616 1 Tablet(s) PO QD No Start Date Active Vitamin D3 1,000 unit tablet RxNorm: 590448 3 Tablet(s) PO QD No St art Date 10/26/2014 Inactive Lexapro 20 mg Tab RxNorm: 024715 1 Tablet(s) PO QD No Start Date 12/24 Inactive loperamide 2 mg tablet RxNorm: 163148 Tablet(s) PO PRN No Start Date 06/07/2016 Inactive Levemir FlexTouch U-100 Insulin 100 unit/mL (3 mL) sub cutaneous pen RxNorm: 101926 22 Unit(s) SQ QD No Start Date 12/21/2019 Inactive Janumet 50 mg-1,000 mg Tab RxNorm: 116920 1 Tablet(s) PO BID No Sta rt Date 01/12/2010 Inactive Levemir U-100 Insulin 100 unit/mL subcutaneous solution RxNo rm: 255172 10 Unit(s) SQ QHS No Start Date 12/08/2018 Inactive Medrol (Gui) 4 mg tablets in a dose pack RxNorm: 018013 Tablet(s) PO Use as directed No Start Date 12/22/2018 Inactive aspirin 325 mg tablet RxNorm: 823129 1 Tablet(s) PO QD No Start Date 08/09/2016 Inactive Efudex 5 % Topical Cream RxNorm: 949643 Application TOP QD prn fto skin lesion No Start Date 08/12/2013 Inactive nitroglycerin 0.4 mg sublingual tablet RxNorm: 245906 Tablet(s) SL as needed No Start Date 12/18/2018 Inactive levofloxacin 500 mg tablet RxNorm: 028154 1 Tablet(s) PO QD No Star t Date 08/06/2018 Inactive ferrous sulfate 325 mg (65 mg iron) tablet RxNorm: 000137 1 Tab let(s) PO QHS No Start Date 04/16/2017 Inactive fluorouracil 5 % topical cream RxNorm: 182121 1 TOP No Start James e 08/06/2018 Inactive Vitamin D3 1,000 unit capsule RxNorm: 981291 1 Capsule(s) PO QD No Start Date 02/03/2018 Inactive Hydrocodone-Acetaminophen 7.5 mg-750 mg Tab RxNorm: 214979 1 Ta blet(s) PO PRN No Start Date 08/09/2014 Inactive pantoprazole 40 mg tablet,delayed release RxNorm: 912722 1 Tabl et(s) PO QD No Start Date 01/22/2018 Inactive omeprazole 20 mg Cap, Delayed Release RxNorm: 018046 2 Capsule( s) PO QD No Start Date 09/12/2010 Inactive DuoNeb 0.5 mg-3 mg(2.5 mg base)/3 mL solution for nebulizati on RxNorm: 4710175 INH Q4H as needed No Start Date 10/22/2018 Inactive Lyrica 75 mg capsule RxNorm: 166088 2 Capsule(s) PO QHS No Start Da te 03/09/2019 Inactive isosorbide mononitrate ER 30 mg tablet,extended release 24 h r RxNorm: 291866 1 Tablet(s) PO QD No Start Date 12/08/2018 Inactive Tradjenta 5 mg tablet RxNorm: 8691093 1 Tablet(s) PO QD No Start Da te 08/09/2016 Inactive Tudorza Pressair 400 mcg/actuation breath activated RxNorm: 9922538 1 Puff(s) INH BID No Start Date 06/17/2017 Inactive Lantus Solostar 100 unit/mL (3 mL) Sub-Q Insulin Pen RxNorm: 953675 30 Unit(s) SQ QD No Start Date 06/18/2011 Inactive Requip 4 mg tablet RxNorm: 201776 1 Tablet(s) PO BID No Start Date Inactive Symbicort 160 mcg-4.5 mcg/actuation HFA aerosol inhaler RxNo rm: 8770386 2 Puff(s) INH BID No Start Date 07/11/2018 Inactive atorvastatin 40 mg tablet RxNorm: 884319 1 Tablet(s) PO QD No Start Date 12/18/2018 Inactive tramadol 50 mg tablet RxNorm: 586663 1 Tablet(s) PO TID as needed for pain (take alone with two extra strength tylenol) No Start Date 01/16/2019 Inactive Symbicort 160 mcg-4.5 mcg/actuation HFA aerosol inhaler RxNo rm: 1334928 2 Puff(s) INH BID No Start Date 08/12/2013 Inactive Vitamin D3 5,000 unit tablet RxNorm: 317824 1 Tablet(s) PO QD No St art Date 05/08/2019 Inactive albuterol sulfate 2.5 mg/3 mL (0.083 %) Neb Solution RxNorm: 661146 1 Unit Dose INH Q4H prn wheezing or shortness of breath No Start Date 01/29/2013 Inac tive Ranexa 500 mg tablet,extended release RxNorm: 044646 1 Tablet(s ) PO BID No Start Date 02/03/2018 Inactive Advair Diskus 500 mcg-50 mcg/dose powder for inhalation RxNo rm: 1772613 1 Puff(s) INH BID No Start Date 08/09/2016 Inactive clopidogrel 75 mg tablet RxNorm: 934445 1 Tablet(s) PO QD No Start Date 05/01/2018 Inactive metformin 1,000 mg Tab RxNorm: 843239 1 Tablet(s) PO BID No Start D ate 08/12/2013 Inactive Silenor 3 mg tablet RxNorm: 178391 1 Tablet(s) PO QHS No Start Date 0 04/04/2017 Inactive Medrol (Gui) 4 mg tablets in a dose pack RxNorm: 487416 Tablet(s) PO as directed No Start Date 01/19/2013 Inactive Requip 4 mg tablet RxNorm: 973533 1 Tablet(s) PO BID No Start Date Inactive clopidogrel 75 mg tablet RxNorm: 639445 1 Tablet(s) PO QD No Start Date 02/03/2018 Inactive Tradjenta 5 mg tablet RxNorm: 7290996 1 Tablet(s) PO QD No Start Da te 02/03/2018 Inactive ProAir HFA 90 mcg/Actuation Aerosol Inhaler RxNorm: 868087 2 Pu ff(s) INH PRN No Start Date 07/09/2012 Inactive Tessalon Perles 100 mg capsule RxNorm: 779856 1 Capsule (s) PO TID as needed for cough No Start Date 08/30/2014 Inactive ferrous sulfate 325 mg (65 mg iron) tablet RxNorm: 600307 1 Tab let(s) PO QD No Start Date 05/08/2019 Inactive pioglitazone 15 mg tablet RxNorm: 766953 1 Tablet(s) PO QD No Start Date 09/20/2014 Inactive Lexapro Oral RxNorm: Oral No Start Date 12/13/2009 Inactive Breo Ellipta 100 mcg-25 mcg/dose powder for inhalation RxNor m: 8262611 1 Puff(s) INH BID No Start Date 05/31/2015 Inactive Tylenol Extra Strength 500 mg tablet RxNorm: 247028 2 T ablet(s) PO QHS along with ropironole No Start Date 12/18/2018 Inactive tramadol 50 mg tablet RxNorm: 509387 1 Tablet(s) PO QID as need ed for pain No Start Date 12/24/2018 Inactive cyclobenzaprine 10 mg Tab RxNorm: 946084 Oral No Start Date 12/22 Inactive Levemir FlexTouch 100 unit/mL (3 mL) subcutaneous insulin pe n RxNorm: 993345 10 Unit(s) SQ QD No Start Date 03/08/2016 Inactive amlodipine 5 mg tablet RxNorm: 641534 1 Tablet(s) PO QD No Start Da te 08/09/2016 Inactive Novolog 100 unit/mL subcutaneous solution RxNorm: 576370 10 Uni t(s) SQ AC No Start Date 08/12/2017 Inactive Levemir FlexTouch 100 unit/mL (3 mL) subcutaneous insulin pe n RxNorm: 523465 25 Unit(s) SQ QPM No Start Date 08/06/2018 Inactive Farxiga 5 mg tablet RxNorm: 2370276 1 Tablet(s) PO QD No Start Date 0 10/05/2014 Inactive DuoNeb 0.5 mg-3 mg(2.5 mg base)/3 mL solution for nebulizati on RxNorm: 1314525 inhalation No Start Date 09/23/2014 Inactive Doxycycline 100 mg Cap RxNorm: 895663 1 Capsule(s) PO BID No Start Date 12/18/2010 Inactive Vitamin B12 1000mcg Tablet RxNorm: 1 Tablet(s) PO QD No Start Date 02/03/2018 Inactive Hydrocodone-Acetaminophen 7.5 mg-750 mg Tab RxNorm: 513511 1 Ta blet(s) PO Q6-8H No Start Date 12/22/2009 Inactive Xigduo XR 5 mg-1,000 mg tablet,extended release RxNorm: 1593 833 1 Tablet(s) PO QD No Start Date 05/31/2015 Inactive cyanocobalamin (vit B-12) 1,000 mcg/mL injection solution Rx Norm: 919702 1 injection weekly for 4 weeks 1 Milliliter(s) Inj No Start Date 05/08/2019 Inactive AndroGel 1.25 g/Actuation (1%) Transdermal Gel Pump RxNorm: 7848893 TD Apply 4pumps daily No Start Date 08/21/2011 Inactive Actoplus MET 15 mg-850 mg Tab RxNorm: 073734 1 Tablet(s) PO BID No Start Date 12/18/2010 Inactive Amaryl 2 mg tablet RxNorm: 042481 1 Tablet(s) PO BID No Start Date Inactive Levemir FlexTouch 100 unit/mL (3 mL) subcutaneous insulin pe n RxNorm: 731948 20 Unit(s) SQ QD No Start Date 06/12/2016 Inactive Symbicort 160 mcg-4.5 mcg/actuation HFA aerosol inhaler RxNo rm: 0872164 2 Puff(s) INH BID No Start Date 02/03/2018 Inactive Symbicort 160 mcg-4.5 mcg/Actuation Inhalation HFA Aer osol Inhaler RxNorm: 4315769 2 INH BID No Start Date 12/18/2010 Inactive Farxiga 5 mg tablet RxNorm: 5946760 1 Tablet(s) PO QD No Start Date 0 03/01/2015 Inactive magnesium oxide 400 mg (241.3 mg magnesium) tablet RxNorm: 1 11874 1 Tablet(s) PO QHS No Start Date 05/08/2019 Inactive Tradjenta 5 mg tablet RxNorm: 1422434 2 Tablet(s) PO QD No Start Da te 07/21/2015 Inactive Levemir FlexTouch U-100 Insulin 100 unit/mL (3 mL) sub cutaneous pen RxNorm: 118454 40 Unit(s) SQ QD No Start Date 08/06/2018 Inactive Sinemet CR 50 mg-200 mg tablet,extended release RxNorm: 8343 41 1 Tablet(s) PO QHS No Start Date 09/24/2017 Inactive metoprolol tartrate 25 mg tablet RxNorm: 041371 1/2 Tablet(s) P O BID No Start Date 02/03/2018 Inactive Requip 4 mg tablet RxNorm: 296167 1 Tablet(s) PO QHS No Start Date Inactive Ventolin HFA 90 mcg/actuation aerosol inhaler RxNorm: 971336 2 Puff(s) INH Q4H as needed No Start Date 04/22/2018 Inactive B12 5,000 mcg-100 mcg sublingual lozenge RxNorm: 778378 IM as d irected No Start Date 05/08/2019 Inactive ropinirole 1 mg tablet RxNorm: 203608 1 Tablet(s) PO QHS No Start D ate 08/06/2018 Inactive Percocet 5 mg-325 mg tablet RxNorm: 1125291 1 Tablet(s) PO Q4H as needed for pain (Dr Rizzo) No Start Date 10/22/2018 Inactive hydrocodone 5 mg-acetaminophen 325 mg tablet RxNorm: 014116 1 Tablet(s) PO TID as needed for pain for severe pain No Start Date 04/16/2014 Inactive scopolamine 1.5 mg 72 hr Transderm Patch RxNorm: 232224 Application TD Q72H for dizziness No Start Date 08/12/2013 Inactive ipratropium-albuterol 0.5 mg-3 mg(2.5 mg base)/3 mL ne bulization soln RxNorm: 1510591 1 Unit Dose INH Q4H No Start Date 01/16/2019 Inactive Medication Administered No Medication Administered data Immunizations Vaccine Codes Date Status Influenza CVX: 135 08/07/2019 Complete Pneumococcal CVX: 33 07/24/2017 Complete Influenza CVX: 135 06/13/2016 Complete Pneumococcal CVX: 133 06/13/2016 Complete Influenza CVX: 141 07/10/2012 Pneumovax Unknown 07/10/2012 Results Observation Observation Code Item Item Code Result Date S ervice Location COMPLETE BLOOD COUNT [id number] WBC 5.5 10e9/L 06/17/20 19 Unknown COMPLETE BLOOD COUNT [id number] RBC 3.92 10e12/L 2018 Unknown COMPLETE BLOOD COUNT [id number] HEMOGLOBIN 10.9 g/dL 06/17/20 19 Unknown COMPLETE BLOOD COUNT 5698333 HEMATOCRIT 34.8 % 06/17/20 19 Unknown COMPLETE BLOOD COUNT [id number] MCV 88.8 fL 9 Unknown COMPLETE BLOOD COUNT 8692115 MCH 27.8 pg 9 Unknown COMPLETE BLOOD COUNT 6599490 MCHC 31.3 g/dL 9 Unknown COMPLETE BLOOD COUNT 8281681 PLATELET COUNT 239 10e9/L Unknown COMPLETE BLOOD COUNT 6042026 Mean Plt Volume 10.0 fL Unknown COMPLETE BLOOD COUNT 8751520 Neut Auto 68.0 % 9 Unknown COMPLETE BLOOD COUNT 8040443 Lymph Auto 14.8 % 06/17/20 19 Unknown COMPLETE BLOOD COUNT 9945644 [place] Auto 13.1 % 9 Unknown COMPLETE BLOOD COUNT 3165765 RDW 14.7 % 9 Unknown COMPLETE BLOOD COUNT 4767843 Eos Auto 3.6 % 9 Unknown COMPLETE BLOOD COUNT 8084301 Baso Auto 0.5 % 9 Unknown COMPLETE BLOOD COUNT 6343686 Neutrophil Abs 3.74 10e9/L Unknown COMPLETE BLOOD COUNT 3576881 Lymphocyte Abs 0.81 10e9/L Unknown COMPLETE BLOOD COUNT 9199276 Monocyte Abs 0.72 10e9/L 05/26 Unknown COMPLETE BLOOD COUNT 0995863 Eosinophil Abs 0.20 10e9/L Unknown COMPLETE BLOOD COUNT 2465348 RDW-SD 46.4 fL 9 Unknown COMPLETE BLOOD COUNT 8804805 Basophil Abs 0.03 10e9/L 05/26 Unknown IRON 37462 Iron 36 ug/dL 06/17/2019 Unknown VITAMIN B 12 51191 VITAMIN B12 540 pg/mL 06/17/2019 Unkn own GFR CALC 9109287 GFR Non Afr Amr 59 mL/min 06/17/2019 Unk nown GFR CALC 3456264 GFR Afr Amr >60 mL/min 06/17/2019 Unknow n ERYTHROCYTE SEDIMENTATION RATE 88577 Sed Rate 34 mm/hr 06/17/2019 Unknown THYROID STIMULATING HORMONE 62543 TSH 2.217 uIU/mL 06/17/2019 Unknown COMPREHENSIVE METABOLIC 16719 AST 12 U/L 2018 Unknown COMPREHENSIVE METABOLIC 00806 ALT 11 U/L 2018 Unknown COMPREHENSIVE METABOLIC 60420 BUN 17 mg/dL 2018 Unknown COMPREHENSIVE METABOLIC 78462 ALBUMIN 3.9 g/dL 2018 Unknown COMPREHENSIVE METABOLIC 24703 CHLORIDE 103 mmol/L 06/17 Unknown COMPREHENSIVE METABOLIC 97295 Bili Total 0.4 mg/dL 06/17 Unknown COMPREHENSIVE METABOLIC 16896 ALK PHOS 51 U/L 2018 Unknown COMPREHENSIVE METABOLIC 37859 SODIUM 140 mmol/L 06/17 Unknown COMPREHENSIVE METABOLIC 45732 CREATININE 1.20 mg/dL 05/26 Unknown COMPREHENSIVE METABOLIC 65038 CALCIUM 8.9 mg/dL 2018 Unknown COMPREHENSIVE METABOLIC 17948 POTASSIUM 4.5 mmol/L 06/17 Unknown COMPREHENSIVE METABOLIC 11051 Total Protein 6.1 g/dL Unknown COMPREHENSIVE METABOLIC 60800 Glucose 108 mg/dL 2018 Unknown COMPREHENSIVE METABOLIC 58531 Bicarbonate 27 mmol/L 05/26 Unknown COMPREHENSIVE METABOLIC 05325 AGAP 10 mmol/L 2018 Unknown FERRITIN 79748 FERRITIN 35.5 ng/mL 05/08/2019 Unknown VITAMIN D TOTAL (25 HYDROXY) 66885 Vitamin D 25 OH 26.0 ng/mL 05/08/2019 Unknown GLYCOSYLATED HEMOGLOBIN TEST 72566 Hgb A1c 32577-8 8.2 % 0 05/08/2019 Unknown MEAN GLUC 8584591 Calc Mean Gluc 189 mg/dL 05/08/2019 Unkn own GFR CALC 3744708 GFR Non Afr Amr >60 mL/min 05/08/2019 Un known GFR CALC 6492006 GFR Afr Amr >60 mL/min 05/08/2019 Unknow n VITAMIN B 12 64099 VITAMIN B12 197 pg/mL 05/08/2019 Unkn own IRON 41850 Iron 34 ug/dL 05/08/2019 Unknown COMPLETE BLOOD COUNT 5889744 WBC 6.9 10e9/L 05/08/20 19 Unknown COMPLETE BLOOD COUNT 3415793 RBC 3.95 10e12/L 2018 Unknown COMPLETE BLOOD COUNT 3215153 HEMOGLOBIN 11.1 g/dL 05/08/20 19 Unknown COMPLETE BLOOD COUNT 2591001 HEMATOCRIT 34.9 % 05/08/20 19 Unknown COMPLETE BLOOD COUNT 2730571 MCV 88.4 fL 9 Unknown COMPLETE BLOOD COUNT 5456254 MCH 28.1 pg 9 Unknown COMPLETE BLOOD COUNT 8486471 MCHC 31.8 g/dL 9 Unknown COMPLETE BLOOD COUNT 9283653 PLATELET COUNT 217 10e9/L Unknown COMPLETE BLOOD COUNT 7841362 Mean Plt Volume 9.6 fL Unknown COMPLETE BLOOD COUNT 6554913 Neut Auto 77.6 % 9 Unknown COMPLETE BLOOD COUNT 7567259 Lymph Auto 10.7 % 05/08/20 19 Unknown COMPLETE BLOOD COUNT 9746302 [place] Auto 10.4 % 9 Unknown COMPLETE BLOOD COUNT 5588146 RDW 14.7 % 9 Unknown COMPLETE BLOOD COUNT 0082688 Eos Auto 1.2 % 9 Unknown COMPLETE BLOOD COUNT 4770647 Baso Auto 0.1 % 9 Unknown COMPLETE BLOOD COUNT 9335747 Neutrophil Abs 5.35 10e9/L Unknown COMPLETE BLOOD COUNT 9422435 Lymphocyte Abs 0.74 10e9/L Unknown COMPLETE BLOOD COUNT [id number] Monocyte Abs 0.72 10e9/L 04/24 Unknown COMPLETE BLOOD COUNT 2496617 Eosinophil Abs 0.08 10e9/L Unknown COMPLETE BLOOD COUNT 6589702 Basophil Abs 0.01 10e9/L 04/24 Unknown COMPLETE BLOOD COUNT 8295464 RDW-SD 46.6 fL 9 Unknown COMPREHENSIVE METABOLIC 55468 AST 13 U/L 2018 Unknown COMPREHENSIVE METABOLIC 69088 ALT 9 U/L 2018 Unknown COMPREHENSIVE METABOLIC 84171 BUN 18 mg/dL 2018 Unknown COMPREHENSIVE METABOLIC 96663 ALBUMIN 4.3 g/dL 2018 Unknown COMPREHENSIVE METABOLIC 16638 CHLORIDE 99 mmol/L 2018 Unknown COMPREHENSIVE METABOLIC 81914 Bili Total 0.4 mg/dL 05/08 Unknown COMPREHENSIVE METABOLIC 67570 ALK PHOS 48 U/L 2018 Unknown COMPREHENSIVE METABOLIC 50299 SODIUM 137 mmol/L 05/08 Unknown COMPREHENSIVE METABOLIC 15408 CREATININE 0.79 mg/dL 04/24 Unknown COMPREHENSIVE METABOLIC 12432 CALCIUM 9.5 mg/dL 2018 Unknown COMPREHENSIVE METABOLIC 76391 POTASSIUM 4.0 mmol/L 05/08 Unknown COMPREHENSIVE METABOLIC 41189 Total Protein 6.3 g/dL Unknown COMPREHENSIVE METABOLIC 04124 Glucose 232 mg/dL 2018 Unknown COMPREHENSIVE METABOLIC 21690 Bicarbonate 27 mmol/L 04/24 Unknown COMPREHENSIVE METABOLIC 83768 AGAP 11 mmol/L 2018 Unknown GLYCOSYLATED HEMOGLOBIN TEST 17831 Hgb A1c 68274-7 8.9 % 0 12/10/2018 Unknown MEAN GLUC 7052789 Calc Mean Gluc 209 mg/dL 12/10/2018 Unkn own LIPID GROUP 88075 Cholesterol 145 mg/dL 12/09/2018 Unkno wn LIPID GROUP 46192 Triglyceride 235 mg/dL 12/09/2018 Unkn own LIPID GROUP 98302 HDL CHOLESTEROL 40 mg/dL 12/09/2018 U nknown LIPID GROUP 46831 Chol/HDL Ratio 3.62 ratio 12/09/2018 U nknown LIPID GROUP 36568 NON-HDL Chol 105 mg/dL 12/09/2018 Unkn own LIPID GROUP 93068 LDL Cholesterol 58 mg/dL 12/09/2018 U nknown THYROID STIMULATING HORMONE 63783 TSH 1.071 uIU/mL 12/09/2018 Unknown GFR CALC 9335131 GFR Afr Amr >60 mL/min 12/09/2018 Unknow n GFR CALC 9941432 GFR Non Afr Amr >60 mL/min 12/09/2018 Un known COMPLETE BLOOD COUNT 2062396 WBC 7.6 10e9/L 12/10/19 19 Unknown COMPLETE BLOOD COUNT 3933625 RBC 3.97 10e12/L 2018 Unknown COMPLETE BLOOD COUNT 0940577 HEMOGLOBIN 11.4 g/dL 12/10/19 19 Unknown COMPLETE BLOOD COUNT 5675160 HEMATOCRIT 35.8 % 12/10/19 19 Unknown COMPLETE BLOOD COUNT 5991232 MCV 90.2 fL 9 Unknown COMPLETE BLOOD COUNT 6542343 MCH 28.7 pg 9 Unknown COMPLETE BLOOD COUNT 5588468 MCHC 31.8 g/dL 9 Unknown COMPLETE BLOOD COUNT 1548525 PLATELET COUNT 200 10e9/L Unknown COMPLETE BLOOD COUNT 3375379 Mean Plt Volume 10.1 fL Unknown COMPLETE BLOOD COUNT 5283512 Neut Auto 79.0 % 9 Unknown COMPLETE BLOOD COUNT 5600775 Lymph Auto 8.3 % 12/10/19 19 Unknown COMPLETE BLOOD COUNT 2450783 [place] Auto 10.8 % 9 Unknown COMPLETE BLOOD COUNT 3363718 RDW 14.6 % 9 Unknown COMPLETE BLOOD COUNT 7813868 Eos Auto 1.5 % 9 Unknown COMPLETE BLOOD COUNT 5142749 Baso Auto 0.4 % 9 Unknown COMPLETE BLOOD COUNT 2387534 Neutrophil Abs 6.00 10e9/L Unknown COMPLETE BLOOD COUNT 0815977 Lymphocyte Abs 0.63 10e9/L Unknown COMPLETE BLOOD COUNT 2051596 Monocyte Abs 0.82 10e9/L 11/22 Unknown COMPLETE BLOOD COUNT 2969269 Eosinophil Abs 0.11 10e9/L Unknown COMPLETE BLOOD COUNT 4822187 Basophil Abs 0.03 10e9/L 11/22 Unknown COMPLETE BLOOD COUNT 1557731 RDW-SD 46.9 fL 9 Unknown COMPREHENSIVE METABOLIC 72482 AST 11 U/L 2018 Unknown COMPREHENSIVE METABOLIC 16005 ALT 11 U/L 2018 Unknown COMPREHENSIVE METABOLIC 06986 BUN 21 mg/dL 2018 Unknown COMPREHENSIVE METABOLIC 78859 ALBUMIN 4.7 g/dL 2018 Unknown COMPREHENSIVE METABOLIC 54082 CHLORIDE 99 mmol/L 2018 Unknown COMPREHENSIVE METABOLIC 34455 Bili Total 0.4 mg/dL 12/09 Unknown COMPREHENSIVE METABOLIC 36848 ALK PHOS 73 U/L 2018 Unknown COMPREHENSIVE METABOLIC 03456 SODIUM 137 mmol/L 12/09 Unknown COMPREHENSIVE METABOLIC 27932 CREATININE 1.12 mg/dL 11/22 Unknown COMPREHENSIVE METABOLIC 28467 CALCIUM 9.4 mg/dL 2018 Unknown COMPREHENSIVE METABOLIC 65640 POTASSIUM 4.2 mmol/L 12/09 Unknown COMPREHENSIVE METABOLIC 64705 Total Protein 6.8 g/dL Unknown COMPREHENSIVE METABOLIC 36761 Glucose 194 mg/dL 2018 Unknown COMPREHENSIVE METABOLIC 01004 Bicarbonate 30 mmol/L 11/22 Unknown COMPREHENSIVE METABOLIC 55950 AGAP 8 mmol/L 2018 Unknown FREE T4 13335 T4 Free 0.86 ng/dL 12/09/2018 Unknown COMPLETE BLOOD COUNT 9154627 WBC 6.8 10e9/L 04/17/20 17 Unknown COMPLETE BLOOD COUNT 8668329 RBC 3.86 10e12/L 2016 Unknown COMPLETE BLOOD COUNT 9623356 HEMOGLOBIN 9.8 g/dL 04/17/20 17 Unknown COMPLETE BLOOD COUNT 3478221 HEMATOCRIT 31.1 % 04/17/20 17 Unknown COMPLETE BLOOD COUNT 2672244 MCV 80.6 fL 7 Unknown COMPLETE BLOOD COUNT 1212707 MCH 25.4 pg 7 Unknown COMPLETE BLOOD COUNT 3054479 MCHC 31.5 g/dL 7 Unknown COMPLETE BLOOD COUNT 1660286 PLATELET COUNT 247 10e9/L Unknown COMPLETE BLOOD COUNT 0356161 Mean Plt Volume 9.7 fL Unknown COMPLETE BLOOD COUNT 7659728 Neut Auto 74.1 % 7 Unknown COMPLETE BLOOD COUNT 0911173 Lymph Auto 12.0 % 04/17/20 17 Unknown COMPLETE BLOOD COUNT 7540786 [place] Auto 10.8 % 7 Unknown COMPLETE BLOOD COUNT 4666473 Eos Auto 2.5 % 7 Unknown COMPLETE BLOOD COUNT 6263691 RDW 15.9 % 7 Unknown COMPLETE BLOOD COUNT 5311153 Baso Auto 0.6 % 7 Unknown COMPLETE BLOOD COUNT 2625543 Neutrophil Abs 5.04 10e9/L Unknown COMPLETE BLOOD COUNT 5145816 Lymphocyte Abs 0.82 10e9/L Unknown COMPLETE BLOOD COUNT 4823932 Monocyte Abs 0.73 10e9/L 03/25 Unknown COMPLETE BLOOD COUNT 2701847 Eosinophil Abs 0.17 10e9/L Unknown COMPLETE BLOOD COUNT 9435029 RDW-SD 44.4 fL 7 Unknown COMPLETE BLOOD COUNT 6784009 Basophil Abs 0.04 10e9/L 03/25 Unknown MEAN GLUC 4231792 Calc Mean Gluc 223 mg/dL 04/17/2017 Unkn own GFR CALC 8683876 GFR Non Afr Amr >60 mL/min 04/17/2017 Un known GFR CALC 5442560 GFR Afr Amr >60 mL/min 04/17/2017 Unknow n GLYCOSYLATED HEMOGLOBIN TEST 85030 Hgb A1c 31885-3 9.4 % 0 04/17/2017 Unknown IRON 59176 Iron 37 ug/dL 04/17/2017 Unknown VITAMIN B 12 27197 VITAMIN B12 280 pg/mL 04/17/2017 Unkn own THYROID STIMULATING HORMONE 62490 TSH 2.481 uIU/mL 04/17/2017 Unknown COMPREHENSIVE METABOLIC 11071 AST 13 U/L 2016 Unknown COMPREHENSIVE METABOLIC 44959 ALT 12 U/L 2016 Unknown COMPREHENSIVE METABOLIC 97007 BUN 18 mg/dL 2016 Unknown COMPREHENSIVE METABOLIC 19913 ALBUMIN 4.7 g/dL 2016 Unknown COMPREHENSIVE METABOLIC 30486 CHLORIDE 103 mmol/L 04/17 Unknown COMPREHENSIVE METABOLIC 69235 Bili Total 0.4 mg/dL 04/17 Unknown COMPREHENSIVE METABOLIC 48339 ALK PHOS 49 U/L 2016 Unknown COMPREHENSIVE METABOLIC 73391 SODIUM 140 mmol/L 04/17 Unknown COMPREHENSIVE METABOLIC 43108 CREATININE 1.14 mg/dL 03/25 Unknown COMPREHENSIVE METABOLIC 08850 CALCIUM 9.4 mg/dL 2016 Unknown COMPREHENSIVE METABOLIC 33855 POTASSIUM 4.4 mmol/L 04/17 Unknown COMPREHENSIVE METABOLIC 99789 Total Protein 6.7 g/dL Unknown COMPREHENSIVE METABOLIC 06806 Glucose 266 mg/dL 2016 Unknown COMPREHENSIVE METABOLIC 09043 Bicarbonate 25 mmol/L 03/25 Unknown COMPREHENSIVE METABOLIC 19121 AGAP 12 mmol/L 2016 Unknown FERRITIN 35291 FERRITIN 10.0 ng/mL 04/17/2017 Unknown COMPLETE BLOOD COUNT 8949104 WBC 6.8 10e9/L 12/22/19 17 Unknown COMPLETE BLOOD COUNT [id number] RBC 3.70 10e12/L 2016 Unknown COMPLETE BLOOD COUNT 0581151 HEMOGLOBIN 8.0 g/dL 12/22/19 17 Unknown COMPLETE BLOOD COUNT 3412018 HEMATOCRIT 26.7 % 12/22/19 17 Unknown COMPLETE BLOOD COUNT 3628484 MCV 72.2 fL 7 Unknown COMPLETE BLOOD COUNT 1216080 MCH 21.6 pg 7 Unknown COMPLETE BLOOD COUNT 9235082 MCHC 30.0 g/dL 7 Unknown COMPLETE BLOOD COUNT 0409571 PLATELET COUNT 290 10e9/L Unknown COMPLETE BLOOD COUNT 5273818 Mean Plt Volume 9.3 fL Unknown COMPLETE BLOOD COUNT 1366291 Neut Auto 80.2 % 7 Unknown COMPLETE BLOOD COUNT 3296500 Lymph Auto 9.8 % 12/22/19 17 Unknown COMPLETE BLOOD COUNT 7479381 [place] Auto 8.1 % 7 Unknown COMPLETE BLOOD COUNT 7025470 RDW 17.4 % 7 Unknown COMPLETE BLOOD COUNT 5432190 Eos Auto 1.5 % 7 Unknown COMPLETE BLOOD COUNT 2124347 Baso Auto 0.4 % 7 Unknown COMPLETE BLOOD COUNT 6553330 Neutrophil Abs 5.45 10e9/L Unknown COMPLETE BLOOD COUNT 6324631 Lymphocyte Abs 0.67 10e9/L Unknown COMPLETE BLOOD COUNT 5059643 Monocyte Abs 0.55 10e9/L 11/24 Unknown COMPLETE BLOOD COUNT 4519316 Eosinophil Abs 0.10 10e9/L Unknown COMPLETE BLOOD COUNT 3617955 RDW-SD 44.1 fL 7 Unknown COMPLETE BLOOD COUNT 4400023 Basophil Abs 0.03 10e9/L 11/24 Unknown COMPLETE BLOOD COUNT 5323551 WBC 7.6 10e9/L 12/13/19 17 Unknown COMPLETE BLOOD COUNT 9835440 RBC 3.71 10e12/L 2016 Unknown COMPLETE BLOOD COUNT 3860873 HEMOGLOBIN 8.0 g/dL 12/13/19 17 Unknown COMPLETE BLOOD COUNT 8835824 HEMATOCRIT 27.3 % 12/13/19 17 Unknown COMPLETE BLOOD COUNT 6772239 MCV 73.6 fL 7 Unknown COMPLETE BLOOD COUNT 6935532 MCH 21.6 pg 7 Unknown COMPLETE BLOOD COUNT 2486773 MCHC 29.3 g/dL 7 Unknown COMPLETE BLOOD COUNT 6705351 PLATELET COUNT 330 10e9/L Unknown COMPLETE BLOOD COUNT 3202841 Mean Plt Volume 9.7 fL Unknown COMPLETE BLOOD COUNT 3962182 Neut Auto 73.2 % 7 Unknown COMPLETE BLOOD COUNT 4391493 Lymph Auto 14.5 % 12/13/19 17 Unknown COMPLETE BLOOD COUNT 3474727 [place] Auto 10.5 % 7 Unknown COMPLETE BLOOD COUNT 2881299 Eos Auto 1.3 % 7 Unknown COMPLETE BLOOD COUNT 4867731 RDW 17.3 % 7 Unknown COMPLETE BLOOD COUNT 5495677 Baso Auto 0.5 % 7 Unknown COMPLETE BLOOD COUNT 0895928 Neutrophil Abs 5.56 10e9/L Unknown COMPLETE BLOOD COUNT 2350531 Lymphocyte Abs 1.10 10e9/L Unknown COMPLETE BLOOD COUNT 2805903 Monocyte Abs 0.80 10e9/L 11/23 Unknown COMPLETE BLOOD COUNT 7857999 Eosinophil Abs 0.10 10e9/L Unknown COMPLETE BLOOD COUNT 1199550 RDW-SD 45.2 fL 7 Unknown COMPLETE BLOOD COUNT 0458510 Basophil Abs 0.04 10e9/L 11/23 Unknown IRON 00477 Iron 69 ug/dL 03/09/2016 Unknown VITAMIN B 12 72341 VITAMIN B12 311 pg/mL 03/09/2016 Unkn own MEAN GLUC 8215070 Mean Glucose 260 mg/dL 03/07/2016 Unknow n GLYCOSYLATED HEMOGLOBIN TEST 54010 Hgb A1c 85552-6 10.7 % 0 03/07/2016 Unknown COMPREHENSIVE METABOLIC 15805 AST 14 U/L 2015 Unknown COMPREHENSIVE METABOLIC 79251 ALT 21 U/L 2015 Unknown COMPREHENSIVE METABOLIC 12777 BUN 27 mg/dL 2015 Unknown COMPREHENSIVE METABOLIC 77631 ALBUMIN 4.5 g/dL 2015 Unknown COMPREHENSIVE METABOLIC 97245 CHLORIDE 101 mmol/L 03/06 Unknown COMPREHENSIVE METABOLIC 32849 Bili Total 0.4 mg/dL 03/06 Unknown COMPREHENSIVE METABOLIC 96479 ALK PHOS 49 U/L 2015 Unknown COMPREHENSIVE METABOLIC 97301 SODIUM 136 mmol/L 03/06 Unknown COMPREHENSIVE METABOLIC 10393 CREATININE 1.16 mg/dL 02/22 Unknown COMPREHENSIVE METABOLIC 42613 CALCIUM 9.9 mg/dL 2015 Unknown COMPREHENSIVE METABOLIC 27763 POTASSIUM 4.5 mmol/L 03/06 Unknown COMPREHENSIVE METABOLIC 32921 Total Protein 6.7 g/dL Unknown COMPREHENSIVE METABOLIC 50636 Glucose 245 mg/dL 2015 Unknown COMPREHENSIVE METABOLIC 57537 Bicarbonate 24 mmol/L 02/22 Unknown COMPREHENSIVE METABOLIC 52247 AGAP 11 mmol/L 2015 Unknown THYROID STIMULATING HORMONE 86486 TSH 0.775 uIU/mL 03/06/2016 Unknown TESTOSTERONE TOTAL 16182 Testos Total 96 ng/dL 03/06/20 16 Unknown LIPID GROUP 47684 Cholesterol 146 mg/dL 03/06/2016 Unkno wn LIPID GROUP 52725 Triglyceride 249 mg/dL 03/06/2016 Unkn own LIPID GROUP 63690 HDL CHOLESTEROL 46 mg/dL 03/06/2016 U nknown LIPID GROUP 69310 Chol/HDL Ratio 3.17 ratio 03/06/2016 U nknown LIPID GROUP 39279 NON-HDL Chol 100 mg/dL 03/06/2016 Unkn own LIPID GROUP 00701 LDL Cholesterol 50 mg/dL 03/06/2016 U nknown COMPLETE BLOOD COUNT 6154809 WBC 11.2 10e9/L 016 Unknown COMPLETE BLOOD COUNT 8937101 RBC 3.94 10e12/L 2015 Unknown COMPLETE BLOOD COUNT 1844000 HEMOGLOBIN 11.4 g/dL 03/06/20 16 Unknown COMPLETE BLOOD COUNT 4563258 HEMATOCRIT 33.7 % 03/06/20 16 Unknown COMPLETE BLOOD COUNT 1941987 MCV 85.5 fL 6 Unknown COMPLETE BLOOD COUNT 8452957 MCH 28.9 pg 6 Unknown COMPLETE BLOOD COUNT 7970569 MCHC 33.8 g/dL 6 Unknown COMPLETE BLOOD COUNT 2783965 PLATELET COUNT 204 10e9/L Unknown COMPLETE BLOOD COUNT 2250326 Mean Plt Volume 10.1 fL Unknown COMPLETE BLOOD COUNT 7945428 Neut Auto 85.9 % 6 Unknown COMPLETE BLOOD COUNT 1312133 Lymph Auto 6.8 % 03/06/20 16 Unknown COMPLETE BLOOD COUNT 0023065 [place] Auto 7.0 % 6 Unknown COMPLETE BLOOD COUNT 9992622 Eos Auto 0.1 % 6 Unknown COMPLETE BLOOD COUNT 7815025 RDW 13.7 % 6 Unknown COMPLETE BLOOD COUNT 6055000 Baso Auto 0.2 % 6 Unknown COMPLETE BLOOD COUNT 4542812 Neutrophil Abs 9.62 10e9/L Unknown COMPLETE BLOOD COUNT 5460014 Lymphoctye Abs 0.76 10e9/L Unknown COMPLETE BLOOD COUNT 7856640 Monocyte Abs 0.78 10e9/L 02/22 Unknown COMPLETE BLOOD COUNT 3858758 Eosinophil Abs 0.01 10e9/L Unknown COMPLETE BLOOD COUNT 6698226 RDW-SD 41.9 fL 6 Unknown COMPLETE BLOOD COUNT 3962383 Basophil Abs 0.02 10e9/L 02/22 Unknown FREE T4 03467 T4 Free 0.89 ng/dL 03/06/2016 Unknown GFR CALC 2993207 GFR Non Afr Amr >60 mL/min 03/06/2016 Un known GFR CALC 2429358 GFR Afr Amr >60 mL/min 03/06/2016 Unknow n PSA EQUIMOLAR JONATAN 38686 PSA Total 0.78 ng/mL 6 Unknown FREE T4 97557 FREE T4 0.90 NG/DL 07/01/2015 Unknown LIPID GROUP 73436 HDL TEST 44 MG/DL 07/01/2015 Unknown LIPID GROUP 95483 TRIG 303 MG/DL 07/01/2015 Unknown LIPID GROUP 25984 TEST LDL 56 MG/DL 07/01/2015 Unknown LIPID GROUP 75040 CHOL 161 MG/DL 07/01/2015 Unknown LIPID GROUP 86822 RCHOL/HDL 3.66 RATIO 07/01/2015 Unknow n LIPID GROUP 69769 NON-HDL CH 117 MG/DL 07/01/2015 Unknow n THYROID STIMULATING HORMONE 22553 TSH 1.783 uIU/ML 07/01/2015 Unknown COMPLETE BLOOD COUNT 6372399 WBC 6.6 10e9/L 07/01/20 15 Unknown COMPLETE BLOOD COUNT 0978174 RBC 4.18 10e12/L 2014 Unknown COMPLETE BLOOD COUNT 6930412 HGB 12.2 g/dL 5 Unknown COMPLETE BLOOD COUNT 7971049 HCT DET 37.0 % 5 Unknown COMPLETE BLOOD COUNT 0761897 MCV 88.5 fL 5 Unknown COMPLETE BLOOD COUNT 7808237 MCH 29.2 pg 5 Unknown COMPLETE BLOOD COUNT 1624415 MCHC 33.0 g/dL 5 Unknown COMPLETE BLOOD COUNT 6655742 PLT 224 10e9/L 07/01/20 15 Unknown COMPLETE BLOOD COUNT 6953964 MPV 10.4 fL 5 Unknown COMPLETE BLOOD COUNT 3326142 SUSIE % 72.6 % 5 Unknown COMPLETE BLOOD COUNT 9055796 LY % 14.1 % 5 Unknown COMPLETE BLOOD COUNT 5346087 MON % 10.2 % 5 Unknown COMPLETE BLOOD COUNT 8683579 EOS % 2.6 % 5 Unknown COMPLETE BLOOD COUNT 4986863 BASO % 0.5 % 5 Unknown COMPLETE BLOOD COUNT 7279265 RDW 14.1 % 5 Unknown COMPLETE BLOOD COUNT 6711631 ABS SUSIE 4.79 10e9/L 015 Unknown COMPLETE BLOOD COUNT 7311642 ABS LYMPH 0.93 10e9/L 015 Unknown COMPLETE BLOOD COUNT 7491926 ABS MONO 0.67 10e9/L 015 Unknown COMPLETE BLOOD COUNT 2661919 ABS EOS 0.17 10e9/L 015 Unknown COMPLETE BLOOD COUNT 9723607 ABS BASO 0.03 10e9/L 015 Unknown COMPLETE BLOOD COUNT 2624848 RDW-SD 43.9 fL 5 Unknown PSA EQUIMOLAR JONATAN 87813 PSA EQ 0.73 NG/ML 5 Unknown COMPREHENSIVE METABOLIC 34003 AST 24 U/L 2014 Unknown COMPREHENSIVE METABOLIC 07192 ALT 26 IU/L 2014 Unknown COMPREHENSIVE METABOLIC 26169 BUN 26 MG/DL 2014 Unknown COMPREHENSIVE METABOLIC 81861 ALBUMIN 4.6 GM/DL 2014 Unknown COMPREHENSIVE METABOLIC 65401 CHLORIDE 102 MMOL/L 06/01 Unknown COMPREHENSIVE METABOLIC 79630 BILI TOT 0.5 MG/DL 2014 Unknown COMPREHENSIVE METABOLIC 83655 ALK PHOS 56 U/L 2014 Unknown COMPREHENSIVE METABOLIC 25610 SODIUM 136 MMOL/L 06/01 Unknown COMPREHENSIVE METABOLIC 71543 CREATININE 1.16 MG/DL 04/2015 Unknown COMPREHENSIVE METABOLIC 24081 CALCIUM 9.8 MG/DL 2014 Unknown COMPREHENSIVE METABOLIC 92675 POTASSIUM 4.6 MMOL/L 06/01 Unknown COMPREHENSIVE METABOLIC 96481 PROT TOT 7.4 GM/DL 2014 Unknown COMPREHENSIVE METABOLIC 81584 Glucose 223 MG/DL 2014 Unknown COMPREHENSIVE METABOLIC 80088 BICARB 27 MMOL/L 2014 Unknown COMPREHENSIVE METABOLIC 89454 ANION GAP 7 MEQ/L 2014 Unknown GFR CALC 3839778 GFR AA >60 ML/MIN 06/01/2015 Unknown GFR CALC 2247828 GFR NON-AA >60 ML/MIN 06/01/2015 Unknown GLYCOSYLATED HEMOGLOBIN TEST 36198 A1C HPLC 65457-5 8.9 % 0 06/01/2015 Unknown GFR CALC 1339520 GFR AA >60 ML/MIN 02/25/2015 Unknown GFR CALC [id number] GFR NON-AA >60 ML/MIN 02/25/2015 Unknown COMPREHENSIVE METABOLIC 99755 AST 24 U/L 2014 Unknown COMPREHENSIVE METABOLIC 79287 ALT 25 IU/L 2014 Unknown COMPREHENSIVE METABOLIC 82998 BUN 14 MG/DL 2014 Unknown COMPREHENSIVE METABOLIC 04085 ALBUMIN 4.5 GM/DL 2014 Unknown COMPREHENSIVE METABOLIC 62700 CHLORIDE 99 MMOL/L 2014 Unknown COMPREHENSIVE METABOLIC 28903 BILI TOT 0.5 MG/DL 2014 Unknown COMPREHENSIVE METABOLIC 64959 ALK PHOS 48 U/L 2014 Unknown COMPREHENSIVE METABOLIC 05954 SODIUM 136 MMOL/L 02/25 Unknown COMPREHENSIVE METABOLIC 02184 CREATININE 0.97 MG/DL 12/2014 Unknown COMPREHENSIVE METABOLIC 37404 CALCIUM 9.9 MG/DL 2014 Unknown COMPREHENSIVE METABOLIC 70961 POTASSIUM 4.4 MMOL/L 02/25 Unknown COMPREHENSIVE METABOLIC 26488 PROT TOT 7.1 GM/DL 2014 Unknown COMPREHENSIVE METABOLIC 64440 Glucose 171 MG/DL 2014 Unknown COMPREHENSIVE METABOLIC 41950 BICARB 25 MMOL/L 2014 Unknown COMPREHENSIVE METABOLIC 00847 ANION GAP 12 MEQ/L 2014 Unknown PROTEIN/CREAT URINE WITH RATIO 95307|13367 PROT R U 19 MG/D L 08/27/2014 Unknown PROTEIN/CREAT URINE WITH RATIO 91919|01799 CREAT R U 111 MG/ DL 08/27/2014 Unknown PROTEIN/CREAT URINE WITH RATIO 75003|08279 XRATIO P/C 171 MG /G 08/27/2014 Unknown MICROALBUMIN URINE RANDOM 04959 MICRL MG/L 34.7 MG/L 12/2013 Unknown MICROALBUMIN URINE RANDOM 89597 XM.ALB/CRE 32.7 MG/GCR 1 10/28/2013 Unknown MICROALBUMIN URINE RANDOM 36742 CREAT MG/D 106 MG/DL 12/2013 Unknown MICROALBUMIN URINE RANDOM 95766 CRE/100 1.06 G/L 12/2013 Unknown COMPLETE BLOOD COUNT [id number] WBC 7.1 10e9/L 08/05/20 14 Unknown COMPLETE BLOOD COUNT 1034776 RBC 4.35 10e12/L 2013 Unknown COMPLETE BLOOD COUNT [id number] HGB 12.9 g/dL 4 Unknown COMPLETE BLOOD COUNT [id number] HCT DET 39.4 % 4 Unknown COMPLETE BLOOD COUNT [id number] MCV 90.6 fL 4 Unknown COMPLETE BLOOD COUNT [id number] MCH 29.7 pg 4 Unknown COMPLETE BLOOD COUNT [id number] MCHC 32.7 g/dL 4 Unknown COMPLETE BLOOD COUNT [id number] PLT 240 10e9/L 08/05/20 14 Unknown COMPLETE BLOOD COUNT [id number] MPV 10.3 fL 4 Unknown COMPLETE BLOOD COUNT [id number] SUSIE % 70.0 % 4 Unknown COMPLETE BLOOD COUNT [id number] LY % 16.4 % 4 Unknown COMPLETE BLOOD COUNT [id number] MON % 9.2 % 4 Unknown COMPLETE BLOOD COUNT [id number] EOS % 3.8 % 4 Unknown COMPLETE BLOOD COUNT [id number] BASO % 0.6 % 4 Unknown COMPLETE BLOOD COUNT 6857551 RDW 13.4 % 4 Unknown COMPLETE BLOOD COUNT [id number] ABS SUSIE 4.97 10e9/L 014 Unknown COMPLETE BLOOD COUNT [id number] ABS LYMPH 1.16 10e9/L 014 Unknown COMPLETE BLOOD COUNT [id number] ABS MONO 0.65 10e9/L 014 Unknown COMPLETE BLOOD COUNT [id number] ABS EOS 0.27 10e9/L 014 Unknown COMPLETE BLOOD COUNT [id number] ABS BASO 0.04 10e9/L 014 Unknown COMPLETE BLOOD COUNT [id number] RDW-SD 43.3 fL 4 Unknown FREE T4 28503 FREE T4 1.02 NG/DL 08/05/2014 Unknown GFR CALC 1291060 GFR AA >60 ML/MIN 08/05/2014 Unknown GFR CALC 9179634 GFR NON-AA >60 ML/MIN 08/05/2014 Unknown GLYCOSYLATED HEMOGLOBIN TEST 97353 A1C HPLC 86097-0 7.7 % 1 10/05/2013 Unknown COMPREHENSIVE METABOLIC 50882 AST 19 U/L 2013 Unknown COMPREHENSIVE METABOLIC 39524 ALT 21 IU/L 2013 Unknown COMPREHENSIVE METABOLIC 92788 BUN 25 MG/DL 2013 Unknown COMPREHENSIVE METABOLIC 22044 ALBUMIN 4.6 GM/DL 2013 Unknown COMPREHENSIVE METABOLIC 35687 CHLORIDE 103 MMOL/L 08/05 Unknown COMPREHENSIVE METABOLIC 78518 BILI TOT 0.4 MG/DL 2013 Unknown COMPREHENSIVE METABOLIC 66812 ALK PHOS 45 U/L 2013 Unknown COMPREHENSIVE METABOLIC 73513 SODIUM 138 MMOL/L 08/05 Unknown COMPREHENSIVE METABOLIC 61890 CREATININE 1.01 MG/DL 07/25 Unknown COMPREHENSIVE METABOLIC 04571 CALCIUM 9.8 MG/DL 2013 Unknown COMPREHENSIVE METABOLIC 69807 POTASSIUM 4.7 MMOL/L 08/05 Unknown COMPREHENSIVE METABOLIC 07428 PROT TOT 7.0 GM/DL 2013 Unknown COMPREHENSIVE METABOLIC 71266 Glucose 145 MG/DL 2013 Unknown COMPREHENSIVE METABOLIC 49575 BICARB 27 MMOL/L 2013 Unknown COMPREHENSIVE METABOLIC 07630 ANION GAP 8 MEQ/L 2013 Unknown THYROID STIMULATING HORMONE 58237 TSH 1.922 uIU/ML 08/05/2014 Unknown LIPID GROUP 13750 HDL TEST 47 MG/DL 08/05/2014 Unknown LIPID GROUP 20099 TRIG 224 MG/DL 08/05/2014 Unknown LIPID GROUP 94598 TEST LDL 125 MG/DL 08/05/2014 Unknown LIPID GROUP 08535 CHOL 217 MG/DL 08/05/2014 Unknown LIPID GROUP 92341 RCHOL/HDL 4.62 RATIO 08/05/2014 Unknow n LIPID GROUP 05417 NON-HDL CH 170 MG/DL 08/05/2014 Unknow n MYCOPLASMA ANTIBODY, IFA [id number] MYCO G IFA 1:256 03/24 Unknown MYCOPLASMA ANTIBODY, IFA [id number] MYCO M IFA <1:10 03/24 Unknown MYCOPLASMA ANTIBODY, IFA [id number] MYCO INTER SEE BELO 03/24 Unknown COMPLETE BLOOD COUNT 7160265 WBC 8.3 10e9/L 04/09/20 13 Unknown COMPLETE BLOOD COUNT 7861801 RBC 4.61 10e12/L 2012 Unknown COMPLETE BLOOD COUNT 8993865 HGB 13.9 g/dL 3 Unknown COMPLETE BLOOD COUNT 0508163 HCT DET 41.2 % 3 Unknown COMPLETE BLOOD COUNT [id number] MCV 89.4 fL 3 Unknown COMPLETE BLOOD COUNT [id number] MCH 30.2 pg 3 Unknown COMPLETE BLOOD COUNT [id number] MCHC 33.7 g/dL 3 Unknown COMPLETE BLOOD COUNT [id number] PLT 249 10e9/L 04/09/20 13 Unknown COMPLETE BLOOD COUNT 2562692 MPV 9.8 fL 3 Unknown COMPLETE BLOOD COUNT [id number] SUSIE % 65.9 % 3 Unknown COMPLETE BLOOD COUNT [id number] LY % 19.8 % 3 Unknown COMPLETE BLOOD COUNT [id number] MON % 10.8 % 3 Unknown COMPLETE BLOOD COUNT 9874539 EOS % 3.0 % 3 Unknown COMPLETE BLOOD COUNT [id number] BASO % 0.5 % 3 Unknown COMPLETE BLOOD COUNT 3235914 RDW 14.0 % 3 Unknown COMPLETE BLOOD COUNT [id number] ABS SUSIE 5.47 10e9/L 013 Unknown COMPLETE BLOOD COUNT [id number] ABS LYMPH 1.64 10e9/L 013 Unknown COMPLETE BLOOD COUNT [id number] ABS MONO 0.90 10e9/L 013 Unknown COMPLETE BLOOD COUNT [id number] ABS EOS 0.25 10e9/L 013 Unknown COMPLETE BLOOD COUNT [id number] ABS BASO 0.04 10e9/L 013 Unknown COMPLETE BLOOD COUNT 5207735 RDW-SD 45.0 fL 3 Unknown URIC ACID 03540 URIC ACID 5.3 MG/DL 02/12/2013 Unknown FREE T4 95029 FREE T4 1.09 NG/DL 02/11/2013 Unknown COMPLETE BLOOD COUNT [id number] WBC 6.3 10e9/L 02/12/20 13 Unknown COMPLETE BLOOD COUNT [id number] RBC 4.29 10e12/L 2012 Unknown COMPLETE BLOOD COUNT [id number] HGB 13.1 g/dL 3 Unknown COMPLETE BLOOD COUNT [id number] HCT DET 39.7 % 3 Unknown COMPLETE BLOOD COUNT [id number] MCV 92.5 fL 3 Unknown COMPLETE BLOOD COUNT 6584908 MCH 30.5 pg 3 Unknown COMPLETE BLOOD COUNT 2321913 MCHC 33.0 g/dL 3 Unknown COMPLETE BLOOD COUNT 7073393 PLT 247 10e9/L 02/12/20 13 Unknown COMPLETE BLOOD COUNT 9323377 MPV 10.0 fL 3 Unknown COMPLETE BLOOD COUNT 4499151 SUSIE % 73.4 % 3 Unknown COMPLETE BLOOD COUNT [id number] LY % 13.5 % 3 Unknown COMPLETE BLOOD COUNT [id number] MON % 9.4 % 3 Unknown COMPLETE BLOOD COUNT [id number] EOS % 2.9 % 3 Unknown COMPLETE BLOOD COUNT 4594995 BASO % 0.8 % 3 Unknown COMPLETE BLOOD COUNT 0712897 RDW 13.8 % 3 Unknown COMPLETE BLOOD COUNT 1067992 ABS SUSIE 4.62 10e9/L 013 Unknown COMPLETE BLOOD COUNT [id number] ABS LYMPH 0.85 10e9/L 013 Unknown COMPLETE BLOOD COUNT [id number] ABS MONO 0.59 10e9/L 013 Unknown COMPLETE BLOOD COUNT 1359389 ABS EOS 0.18 10e9/L 013 Unknown COMPLETE BLOOD COUNT [id number] ABS BASO 0.05 10e9/L 013 Unknown COMPLETE BLOOD COUNT [id number] RDW-SD 45.7 fL 3 Unknown HEMOGLOBIN A1C (GLYCOSYLATED) 6061637 A1C HPLC 37057-1 7.5 % 02/11/2013 Unknown THYROID STIMULATING HORMONE 31096 TSH 1.466 uIU/ML 02/11/2013 Unknown VITAMIN B 12 FOLIC ACID 73810|68492 VIT B 12 625 PG/ML 01/23 Unknown VITAMIN B 12 FOLIC ACID 93121|89281 FOLIC ACID 15.6 NG/ML Unknown COMPREHENSIVE METABOLIC 02172 AST 18 U/L 2012 Unknown COMPREHENSIVE METABOLIC 34433 ALT 21 IU/L 2012 Unknown COMPREHENSIVE METABOLIC 50667 BUN 25 MG/DL 2012 Unknown COMPREHENSIVE METABOLIC 77363 ALBUMIN 4.6 GM/DL 2012 Unknown COMPREHENSIVE METABOLIC 88160 CHLORIDE 103 MMOL/L 02/11 Unknown COMPREHENSIVE METABOLIC 13552 BILI TOT 0.3 MG/DL 2012 Unknown COMPREHENSIVE METABOLIC 14466 ALK PHOS 53 U/L 2012 Unknown COMPREHENSIVE METABOLIC 68735 SODIUM 136 MMOL/L 02/11 Unknown COMPREHENSIVE METABOLIC 13595 CREATININE 1.16 MG/DL 01/23 Unknown COMPREHENSIVE METABOLIC 94143 CALCIUM 10.0 MG/DL 02/11 Unknown COMPREHENSIVE METABOLIC 33784 POTASSIUM 4.9 MMOL/L 02/11 Unknown COMPREHENSIVE METABOLIC 31642 PROT TOT 7.0 GM/DL 2012 Unknown COMPREHENSIVE METABOLIC 48709 Glucose 192 MG/DL 2012 Unknown COMPREHENSIVE METABOLIC 06670 BICARB 26 MMOL/L 2012 Unknown COMPREHENSIVE METABOLIC 44973 ANION GAP 7 MEQ/L 2012 Unknown GFR CALC 7325206 GFR AA >60 ML/MIN 02/11/2013 Unknown GFR CALC 9805582 GFR NON-AA >60 ML/MIN 02/11/2013 Unknown C-REACTIVE PROTEIN (CRP) QUANT 83637 CRP 2.7 MG/DL 02/11/2013 Unknown GFR CALC 8826443 GFR AA >60 ML/MIN 09/19/2012 Unknown GFR CALC 6262220 GFR NON-AA >60 ML/MIN 09/19/2012 Unknown HEMOGLOBIN A1C (GLYCOSYLATED) 9211997 A1C HPLC 30868-6 7.2 % 09/19/2012 Unknown COMPREHENSIVE METABOLIC 04238 AST 13 U/L 2011 Unknown COMPREHENSIVE METABOLIC 82933 ALT 17 IU/L 2011 Unknown COMPREHENSIVE METABOLIC 88954 BUN 25 MG/DL 2011 Unknown COMPREHENSIVE METABOLIC 14379 ALBUMIN 4.5 GM/DL 2011 Unknown COMPREHENSIVE METABOLIC 60858 CHLORIDE 104 MMOL/L 09/19 Unknown COMPREHENSIVE METABOLIC 94284 BILI TOT 0.3 MG/DL 2011 Unknown COMPREHENSIVE METABOLIC 75167 ALK PHOS 43 U/L 2011 Unknown COMPREHENSIVE METABOLIC 99612 SODIUM 139 MMOL/L 09/19 Unknown COMPREHENSIVE METABOLIC 62632 CREATININE 1.10 MG/DL 08/25 Unknown COMPREHENSIVE METABOLIC 21190 CALCIUM 9.8 MG/DL 2011 Unknown COMPREHENSIVE METABOLIC 87747 POTASSIUM 4.8 MMOL/L 09/19 Unknown COMPREHENSIVE METABOLIC 56564 PROT TOT 6.5 GM/DL 2011 Unknown COMPREHENSIVE METABOLIC 85693 Glucose 148 MG/DL 2011 Unknown COMPREHENSIVE METABOLIC 59368 BICARB 25 MMOL/L 2011 Unknown COMPREHENSIVE METABOLIC 87958 ANION GAP 10 MEQ/L 2011 Unknown LIPID GROUP 44919 HDL TEST 44 MG/DL 09/19/2012 Unknown LIPID GROUP 60384 TRIG 318 MG/DL 09/19/2012 Unknown LIPID GROUP 64752 TEST LDL 100 MG/DL 09/19/2012 Unknown LIPID GROUP 94626 CHOL 208 MG/DL 09/19/2012 Unknown LIPID GROUP 42023 RCHOL/HDL 4.73 RATIO 09/19/2012 Unknow n FREE T4 93410 FREE T4 0.87 NG/DL 05/06/2012 Unknown GLYCOSYLATED HEMOGLOBIN TEST 52185 A1C HPLC 39028-3 6.4 % 0 05/06/2012 Unknown LIPID GROUP 75149 HDL TEST 44 MG/DL 05/06/2012 Unknown LIPID GROUP 55153 TRIG 177 MG/DL 05/06/2012 Unknown LIPID GROUP 87134 TEST LDL 113 MG/DL 05/06/2012 Unknown LIPID GROUP 21691 CHOL 192 MG/DL 05/06/2012 Unknown LIPID GROUP 15126 RCHOL/HDL 4.36 RATIO 05/06/2012 Unknow n THYROID STIMULATING HORMONE 27086 TSH 1.151 uIU/ML 05/06/2012 Unknown COMPLETE BLOOD COUNT 22152 WBC 7.8 10e9/L 05/06/20 12 Unknown COMPLETE BLOOD COUNT 18804 RBC 4.31 10e12/L 2011 Unknown COMPLETE BLOOD COUNT 25436 HGB 12.8 g/dL 2 Unknown COMPLETE BLOOD COUNT 99372 HCT DET 39.1 % 2 Unknown COMPLETE BLOOD COUNT 52140 MCV 90.7 fL 2 Unknown COMPLETE BLOOD COUNT 83053 MCH 29.7 pg 2 Unknown COMPLETE BLOOD COUNT 80008 MCHC 32.7 g/dL 2 Unknown COMPLETE BLOOD COUNT 27032 PLT 207 10e9/L 05/06/20 12 Unknown COMPLETE BLOOD COUNT 07567 MPV 10.2 fL 2 Unknown COMPLETE BLOOD COUNT 96265 SUSIE % 74.2 % 2 Unknown COMPLETE BLOOD COUNT 01446 LY % 12.8 % 2 Unknown COMPLETE BLOOD COUNT 57467 MON % 11.0 % 2 Unknown COMPLETE BLOOD COUNT 93123 EOS % 1.7 % 2 Unknown COMPLETE BLOOD COUNT 18754 BASO % 0.3 % 2 Unknown COMPLETE BLOOD COUNT 57408 RDW 13.7 % 2 Unknown COMPLETE BLOOD COUNT 32838 ABS SUSIE 5.79 10e9/L 012 Unknown COMPLETE BLOOD COUNT 21031 ABS LYMPH 1.00 10e9/L 012 Unknown COMPLETE BLOOD COUNT 60811 ABS MONO 0.86 10e9/L 012 Unknown COMPLETE BLOOD COUNT 55738 ABS EOS 0.13 10e9/L 012 Unknown COMPLETE BLOOD COUNT 86774 ABS BASO 0.02 10e9/L 012 Unknown COMPLETE BLOOD COUNT 58607 RDW-SD 44.4 fL 2 Unknown COMPREHENSIVE METABOLIC 25416 AST 13 U/L 2011 Unknown COMPREHENSIVE METABOLIC 37095 ALT 14 IU/L 2011 Unknown COMPREHENSIVE METABOLIC 52602 BUN 17 MG/DL 2011 Unknown COMPREHENSIVE METABOLIC 90421 ALBUMIN 4.5 GM/DL 2011 Unknown COMPREHENSIVE METABOLIC 59982 CHLORIDE 101 MMOL/L 05/06 Unknown COMPREHENSIVE METABOLIC 29735 BILI TOT 0.5 MG/DL 2011 Unknown COMPREHENSIVE METABOLIC 92969 ALK PHOS 42 U/L 2011 Unknown COMPREHENSIVE METABOLIC 51927 SODIUM 141 MMOL/L 05/06 Unknown COMPREHENSIVE METABOLIC 17297 CREATININE 1.02 MG/DL 04/24 Unknown COMPREHENSIVE METABOLIC 03208 CALCIUM 9.7 MG/DL 2011 Unknown COMPREHENSIVE METABOLIC 26508 POTASSIUM 4.6 MMOL/L 05/06 Unknown COMPREHENSIVE METABOLIC 56656 PROT TOT 6.5 GM/DL 2011 Unknown COMPREHENSIVE METABOLIC 24830 Glucose 139 MG/DL 2011 Unknown COMPREHENSIVE METABOLIC 55811 BICARB 29 MMOL/L 2011 Unknown COMPREHENSIVE METABOLIC 79707 ANION GAP 11 MEQ/L 2011 Unknown GFR CALC 1227282 GFR AA >60 ML/MIN 05/06/2012 Unknown GFR CALC 1911286 GFR NON-AA 54.0L ML/MIN 05/06/2012 Unkno wn GLYCOSYLATED HEMOGLOBIN TEST 87071 A1C HPLC 16806-6 6.6 % 1 09/30/2010 Unknown FREE T4 25748 FREE T4 1.00 NG/DL 07/26/2011 Unknown LIPID GROUP 71185 HDL TEST 40 MG/DL 07/26/2011 Unknown LIPID GROUP 83734 TRIG 136 MG/DL 07/26/2011 Unknown LIPID GROUP 59138 TEST LDL 126 MG/DL 07/26/2011 Unknown LIPID GROUP 64114 CHOL 193 MG/DL 07/26/2011 Unknown LIPID GROUP 57914 RCHOL/HDL 4.83 RATIO 07/26/2011 Unknow n COMPREHENSIVE METABOLIC 26889 AST 15 U/L 2010 Unknown COMPREHENSIVE METABOLIC 92395 ALT 13 IU/L 2010 Unknown COMPREHENSIVE METABOLIC 78157 BUN 17 MG/DL 2010 Unknown COMPREHENSIVE METABOLIC 11510 ALBUMIN 4.4 GM/DL 2010 Unknown COMPREHENSIVE METABOLIC 37382 CHLORIDE 102 MMOL/L 07/26 Unknown COMPREHENSIVE METABOLIC 48759 BILI TOT 0.5 MG/DL 2010 Unknown COMPREHENSIVE METABOLIC 27856 ALK PHOS 54 U/L 2010 Unknown COMPREHENSIVE METABOLIC 39476 SODIUM 138 MMOL/L 07/26 Unknown COMPREHENSIVE METABOLIC 05714 CREATININE 0.95 MG/DL 10/2010 Unknown COMPREHENSIVE METABOLIC 69642 CALCIUM 9.3 MG/DL 2010 Unknown COMPREHENSIVE METABOLIC 22522 POTASSIUM 4.3 MMOL/L 07/26 Unknown COMPREHENSIVE METABOLIC 47184 PROT TOT 6.7 GM/DL 2010 Unknown COMPREHENSIVE METABOLIC 97540 Glucose 116 MG/DL 2010 Unknown COMPREHENSIVE METABOLIC 64327 BICARB 28 MMOL/L 2010 Unknown COMPREHENSIVE METABOLIC 25485 ANION GAP 8 MEQ/L 2010 Unknown PSA EQUIMOLAR JONATAN 29973 PSA EQ 1.01 NG/ML 1 Unknown COMPLETE BLOOD COUNT 47223 WBC 6.4 10e9/L 07/26/20 11 Unknown COMPLETE BLOOD COUNT 72917 RBC 4.43 10e12/L 2010 Unknown COMPLETE BLOOD COUNT 80136 HGB 13.2 g/dL 1 Unknown COMPLETE BLOOD COUNT 70601 HCT DET 39.3 % 1 Unknown COMPLETE BLOOD COUNT 27259 MCV 88.7 fL 1 Unknown COMPLETE BLOOD COUNT 14607 MCH 29.8 pg 1 Unknown COMPLETE BLOOD COUNT 64014 MCHC 33.6 g/dL 1 Unknown COMPLETE BLOOD COUNT 68487 PLT 226 10e9/L 07/26/20 11 Unknown COMPLETE BLOOD COUNT 02058 MPV 9.9 fL 1 Unknown COMPLETE BLOOD COUNT 05062 SUSIE % 65.4 % 1 Unknown COMPLETE BLOOD COUNT 94625 LY % 19.7 % 1 Unknown COMPLETE BLOOD COUNT 59132 MON % 10.8 % 1 Unknown COMPLETE BLOOD COUNT 10326 EOS % 3.6 % 1 Unknown COMPLETE BLOOD COUNT 53655 BASO % 0.5 % 1 Unknown COMPLETE BLOOD COUNT 80959 RDW 13.2 % 1 Unknown COMPLETE BLOOD COUNT 69935 ABS SUSIE 4.19 10e9/L 011 Unknown COMPLETE BLOOD COUNT 78421 ABS LYMPH 1.26 10e9/L 011 Unknown COMPLETE BLOOD COUNT 20106 ABS MONO 0.69 10e9/L 011 Unknown COMPLETE BLOOD COUNT 48681 ABS EOS 0.23 10e9/L 011 Unknown COMPLETE BLOOD COUNT 32646 ABS BASO 0.03 10e9/L 011 Unknown COMPLETE BLOOD COUNT 64446 RDW-SD 41.7 fL 1 Unknown THYROID STIMULATING HORMONE 96679 TSH 1.345 uIU/ML 07/26/2011 Unknown GFR CALC 8901992 GFR AA >60 ML/MIN 07/26/2011 Unknown GFR CALC 0877449 GFR NON-AA >60 ML/MIN 07/26/2011 Unknown BRAIN NATRIURETIC PEPTIDE(BNP) 62711 BRAIN PEP 23 pg/mL 01/19/2011 Unknown CANCEL 0255298 CANCEL FOOTNOTE 01/18/2011 Unknown TESTOSTERONE TOTAL 31400 TESTOS TO 138 NG/DL 12/19/2010 Unknown COMPLETE BLOOD COUNT 04504 WBC 8.4 10e9/L 12/08/19 11 Unknown COMPLETE BLOOD COUNT 99264 RBC 4.40 10e12/L 2010 Unknown COMPLETE BLOOD COUNT 23832 HGB 13.3 g/dL 1 Unknown COMPLETE BLOOD COUNT 19615 HCT DET 39.8 % 1 Unknown COMPLETE BLOOD COUNT 69057 MCV 90.5 fL 1 Unknown COMPLETE BLOOD COUNT 32841 MCH 30.2 pg 1 Unknown COMPLETE BLOOD COUNT 52831 MCHC 33.4 g/dL 1 Unknown COMPLETE BLOOD COUNT 64232 PLT 201 10e9/L 12/08/19 11 Unknown COMPLETE BLOOD COUNT 33226 MPV 10.6 fL 1 Unknown COMPLETE BLOOD COUNT 25624 SUSIE % 72.5 % 1 Unknown COMPLETE BLOOD COUNT 79077 LY % 14.8 % 1 Unknown COMPLETE BLOOD COUNT 82461 MON % 10.6 % 1 Unknown COMPLETE BLOOD COUNT 41066 EOS % 1.7 % 1 Unknown COMPLETE BLOOD COUNT 07625 BASO % 0.4 % 1 Unknown COMPLETE BLOOD COUNT 18898 RDW 13.7 % 1 Unknown COMPLETE BLOOD COUNT 44315 ABS SUSIE 6.09 10e9/L 011 Unknown COMPLETE BLOOD COUNT 30045 ABS LYMPH 1.24 10e9/L 011 Unknown COMPLETE BLOOD COUNT 37501 ABS MONO 0.89 10e9/L 011 Unknown COMPLETE BLOOD COUNT 74469 ABS EOS 0.14 10e9/L 011 Unknown COMPLETE BLOOD COUNT 04009 ABS BASO 0.03 10e9/L 011 Unknown COMPLETE BLOOD COUNT 82244 RDW-SD 44.0 fL 1 Unknown LIPID GROUP 43914 HDL TEST 40 MG/DL 12/07/2010 Unknown LIPID GROUP 24158 TRIG 383 MG/DL 12/07/2010 Unknown LIPID GROUP 07854 TEST LDL 82 MG/DL 12/07/2010 Unknown LIPID GROUP 62935 CHOL 199 MG/DL 12/07/2010 Unknown LIPID GROUP 44450 RCHOL/HDL 4.98 RATIO 12/07/2010 Unknow n GFR CALC 7915141 GFR AA >60 ML/MIN 12/07/2010 Unknown GFR CALC 3644259 GFR NON-AA >60 ML/MIN 12/07/2010 Unknown COMPREHENSIVE METABOLIC 59382 AST 29 U/L 2010 Unknown COMPREHENSIVE METABOLIC 02580 ALT 39 IU/L 2010 Unknown COMPREHENSIVE METABOLIC 44283 BUN 17 MG/DL 2010 Unknown COMPREHENSIVE METABOLIC 47238 ALBUMIN 4.9 GM/DL 2010 Unknown COMPREHENSIVE METABOLIC 60253 CHLORIDE 100 MMOL/L 12/07 Unknown COMPREHENSIVE METABOLIC 57299 BILI TOT 0.3 MG/DL 2010 Unknown COMPREHENSIVE METABOLIC 49476 ALK PHOS 53 U/L 2010 Unknown COMPREHENSIVE METABOLIC 13624 SODIUM 137 MMOL/L 12/07 Unknown COMPREHENSIVE METABOLIC 80537 CREATININE 0.98 MG/DL 11/22 Unknown COMPREHENSIVE METABOLIC 13547 CALCIUM 9.5 MG/DL 2010 Unknown COMPREHENSIVE METABOLIC 45218 POTASSIUM 4.3 MMOL/L 12/07 Unknown COMPREHENSIVE METABOLIC 89995 PROT TOT 6.6 GM/DL 2010 Unknown COMPREHENSIVE METABOLIC 66009 Glucose 176 MG/DL 2010 Unknown COMPREHENSIVE METABOLIC 10239 BICARB 28 MMOL/L 2010 Unknown COMPREHENSIVE METABOLIC 07025 ANION GAP 9 MEQ/L 2010 Unknown PSA EQUIMOLAR JONATAN 00781 PSA EQ 0.65 NG/ML 1 Unknown HEMOGLOBIN A1C (GLYCOSYLATED) 54134 A1C HPLC 52883-6 6.9 % 12/07/2010 Unknown Procedures Procedure Codes Date THER/PROPH/DIAG INJ SC/IM CPT-4: 47741 12/25/2019 METHYLPREDNISOLONE INJECTION CPT-4: J2930 12/25/2019 FLU VACC PRSV FREE INC ANTIG 65 AND OLDER CPT-4: 10409 08/07/2019 FLU VACC PRSV FREE INC ANTIG 65 AND OLDER CPT-4: 21102 08/07/2019 ADMIN INFLUENZA VIRUS VAC CPT-4: G0008 08/07/2019 THER/PROPH/DIAG INJ SC/IM CPT-4: 95947 07/14/2019 METHYLPREDNISOLONE INJECTION CPT-4: J2930 07/14/2019 ROUTINE VENIPUNCTURE CPT-4: 10569 06/17/2019 ASSAY THYROID STIM HORMONE CPT-4: 94225 06/17/2019 COMPREHEN METABOLIC PANEL CPT-4: 46326 06/17/2019 COMPLETE CBC W/AUTO DIFF WBC CPT-4: 30394 06/17/2019 ASSAY OF IRON CPT-4: 88963 06/17/2019 VITAMIN B-12 CPT-4: 08988 06/17/2019 RBC SED RATE AUTOMATED CPT-4: 40254 06/17/2019 THER/PROPH/DIAG INJ SC/IM CPT-4: 57568 06/10/2019 THER/PROPH/DIAG INJ SC/IM CPT-4: 25025 06/02/2019 THER/PROPH/DIAG INJ SC/IM CPT-4: 64652 05/27/2019 THER/PROPH/DIAG INJ SC/IM CPT-4: 44104 05/12/2019 ROUTINE VENIPUNCTURE CPT-4: 15484 05/08/2019 COMPREHEN METABOLIC PANEL CPT-4: 86011 05/08/2019 COMPLETE CBC W/AUTO DIFF WBC CPT-4: 10304 05/08/2019 A1C HPLC CPT-4: 63800 05/08/2019 VITAMIN D TOTAL (25 HYDROXY) CPT-4: 47866 05/08/2019 ASSAY OF IRON CPT-4: 49462 05/08/2019 ASSAY OF FERRITIN CPT-4: 90017 05/08/2019 VITAMIN B-12 CPT-4: 33140 05/08/2019 THER/PROPH/DIAG INJ SC/IM CPT-4: 65185 03/21/2019 METHYLPREDNISOLONE INJECTION CPT-4: J2930 03/21/2019 THER/PROPH/DIAG INJ SC/IM CPT-4: 47960 03/13/2019 METHYLPREDNISOLONE INJECTION CPT-4: J2930 03/13/2019 THER/PROPH/DIAG INJ SC/IM CPT-4: 27018 12/25/2018 METHYLPREDNISOLONE INJECTION CPT-4: J2930 12/25/2018 ROUTINE VENIPUNCTURE CPT-4: 25655 12/09/2018 ASSAY OF FREE THYROXINE CPT-4: 42064 12/09/2018 ASSAY THYROID STIM HORMONE CPT-4: 48636 12/09/2018 COMPREHEN METABOLIC PANEL CPT-4: 02612 12/09/2018 COMPLETE CBC W/AUTO DIFF WBC CPT-4: 25662 12/09/2018 LIPID PANEL CPT-4: 60625 12/09/2018 A1C HPLC CPT-4: 55175 12/09/2018 PRESCRIP TRANSMIT VIA ERX SY CPT-4: G8553 08/21/2018 PRESCRIP TRANSMIT VIA ERX SY CPT-4: G8553 08/07/2018 THER/PROPH/DIAG INJ SC/IM CPT-4: 38061 05/23/2018 METHYLPREDNISOLONE INJECTION CPT-4: J2930 05/23/2018 PRESCRIP TRANSMIT VIA ERX SY CPT-4: G8553 05/02/2018 THER/PROPH/DIAG INJ SC/IM CPT-4: 34616 04/29/2018 METHYLPREDNISOLONE INJECTION CPT-4: J2930 04/29/2018 DEXAMETHASONE SODIUM PHOS CPT-4: J1100 04/22/2018 THER/PROPH/DIAG INJ SC/IM CPT-4: 21945 04/22/2018 TRIAMCINOLONE ACET INJ NOS CPT-4: J3301 04/22/2018 PRESCRIP TRANSMIT VIA ERX SY CPT-4: G8553 04/22/2018 PRESCRIP TRANSMIT VIA ERX SY CPT-4: G8553 01/23/2018 URINALYSIS NONAUTO W/O SCOPE CPT-4: 82992 01/02/2018 URINE CULTURE/ COLONY COUNT CPT-4: 25683 01/02/2018 PRESCRIP TRANSMIT VIA ERX SY CPT-4: G8553 01/02/2018 PRESCRIP TRANSMIT VIA ERX SY CPT-4: G8553 12/28/2017 PRESCRIP TRANSMIT VIA ERX SY CPT-4: G8553 12/21/2017 CEFTRIAXONE SODIUM INJECTION CPT-4: J0696 12/17/2017 THER/PROPH/DIAG INJ SC/IM CPT-4: 35288 12/17/2017 THER/PROPH/DIAG INJ SC/IM CPT-4: 65990 12/17/2017 TRIAMCINOLONE ACET INJ NOS CPT-4: J3301 12/17/2017 PRESCRIP TRANSMIT VIA ERX SY CPT-4: G8553 12/17/2017 DRAIN/INJECT JOINT/BURSA CPT-4: 06008 12/11/2017 TRIAMCINOLONE ACET INJ NOS CPT-4: J3301 12/11/2017 DEXAMETHASONE SODIUM PHOS CPT-4: J1100 12/11/2017 DESTRUCT PREMALG LESION (Cryosurgery) CPT-4: 10777 PRESCRIP TRANSMIT VIA ERX SY CPT-4: G8553 10/17/2017 DEXAMETHASONE SODIUM PHOS CPT-4: J1100 08/02/2017 THER/PROPH/DIAG INJ SC/IM CPT-4: 02821 08/02/2017 TRIAMCINOLONE ACET INJ NOS CPT-4: J3301 08/02/2017 PRESCRIP TRANSMIT VIA ERX SY CPT-4: G8553 08/02/2017 PNEUMOCOCCAL VACC 23 OLIVIA IM CPT-4: 98224 07/24/2017 ADMIN PNEUMOCOCCAL VACCINE CPT-4: G0009 07/24/2017 ALBUTEROL NON-COMP UNIT CPT-4: J7613 07/02/2017 AIRWAY INHALATION TREATMENT CPT-4: 50675 07/02/2017 THER/PROPH/DIAG INJ SC/IM CPT-4: 90736 07/02/2017 METHYLPREDNISOLONE INJECTION CPT-4: J2930 07/02/2017 PRESCRIP TRANSMIT VIA ERX SY CPT-4: G8553 05/29/2017 ROUTINE VENIPUNCTURE CPT-4: 40878 04/17/2017 ASSAY OF IRON CPT-4: 18097 04/17/2017 VITAMIN B-12 CPT-4: 57683 04/17/2017 COMPREHEN METABOLIC PANEL CPT-4: 66394 04/17/2017 COMPLETE CBC W/AUTO DIFF WBC CPT-4: 47335 04/17/2017 ASSAY OF FERRITIN CPT-4: 81611 04/17/2017 ASSAY THYROID STIM HORMONE CPT-4: 65434 04/17/2017 A1C HPLC CPT-4: 45283 04/17/2017 DRAIN/INJECT JOINT/BURSA CPT-4: 26737 02/01/2017 TRIAMCINOLONE ACET INJ NOS CPT-4: J3301 02/01/2017 DEXAMETHASONE SODIUM PHOS CPT-4: J1100 02/01/2017 ROUTINE VENIPUNCTURE CPT-4: 39175 12/27/2016 COMPLETE CBC W/AUTO DIFF WBC CPT-4: 67701 12/27/2016 ROUTINE VENIPUNCTURE CPT-4: 23021 12/21/2016 COMPLETE CBC W/AUTO DIFF WBC CPT-4: 22907 12/21/2016 ROUTINE VENIPUNCTURE CPT-4: 85387 12/12/2016 COMPLETE CBC W/AUTO DIFF WBC CPT-4: 79962 12/12/2016 PRESCRIP TRANSMIT VIA ERX SY CPT-4: G8553 10/31/2016 PRESCRIP TRANSMIT VIA ERX SY CPT-4: G8553 10/03/2016 PRESCRIP TRANSMIT VIA ERX SY CPT-4: G8553 09/04/2016 DESTRUCT PREMALG LESION (Cryosurgery) CPT-4: 44311 DESTRUCT PREMALG LES 2-14 CPT-4: 67639 08/22/2016 PRESCRIP TRANSMIT VIA ERX SY CPT-4: G8553 08/10/2016 PRESCRIP TRANSMIT VIA ERX SY CPT-4: G8553 07/06/2016 FLU VACC PRSV FREE INC ANTIG 65 AND OLDER CPT-4: 57426 06/13/2016 PNEUMOCOCCAL VACC 13 OLIVIA IM CPT-4: 82850 06/13/2016 ADMIN INFLUENZA VIRUS VAC CPT-4: G0008 06/13/2016 ADMIN PNEUMOCOCCAL VACCINE CPT-4: G0009 06/13/2016 CERUM REMOVAL CPT-4: 51968 04/05/2016 PRESCRIP TRANSMIT VIA ERX SY CPT-4: G8553 04/03/2016 ROUTINE VENIPUNCTURE CPT-4: 89700 03/06/2016 ASSAY OF FREE THYROXINE CPT-4: 76911 03/06/2016 ASSAY THYROID STIM HORMONE CPT-4: 05482 03/06/2016 COMPREHEN METABOLIC PANEL CPT-4: 86635 03/06/2016 COMPLETE CBC W/AUTO DIFF WBC CPT-4: 85371 03/06/2016 LIPID PANEL CPT-4: 35366 03/06/2016 ASSAY OF PSA TOTAL CPT-4: 69558 03/06/2016 TESTOSTERONE TOTAL - MALE CPT-4: 98778 03/06/2016 A1C HPLC CPT-4: 86121 03/06/2016 ASSAY OF IRON CPT-4: 48568 03/06/2016 VITAMIN B-12 CPT-4: 34641 03/06/2016 INJ TENDON SHEATH/LIGAMENT CPT-4: 51261 02/17/2016 TRIAMCINOLONE ACET INJ NOS CPT-4: J3301 02/17/2016 DEXAMETHASONE SODIUM PHOS CPT-4: J1100 02/17/2016 PRESCRIP TRANSMIT VIA ERX SY CPT-4: G8553 01/31/2016 PRESCRIP TRANSMIT VIA ERX SY CPT-4: G8553 12/30/2015 PRESCRIP TRANSMIT VIA ERX SY CPT-4: G8553 12/06/2015 PRESCRIP TRANSMIT VIA ERX SY CPT-4: G8553 11/15/2015 PPPS, subseq visit CPT-4: G0439 10/05/2015 MICROALBUMIN QUANTITATIVE CPT-4: 39009 10/05/2015 PROTEIN/CREAT URINE WITH RATIO CPT-4: 65180|09030 6 ROUTINE VENIPUNCTURE CPT-4: 23872 07/01/2015 ASSAY OF FREE THYROXINE CPT-4: 92125 07/01/2015 ASSAY THYROID STIM HORMONE CPT-4: 20236 07/01/2015 COMPLETE CBC W/AUTO DIFF WBC CPT-4: 21535 07/01/2015 LIPID PANEL CPT-4: 02755 07/01/2015 ASSAY OF PSA TOTAL CPT-4: 02926 07/01/2015 AEROBIC WOUND CULTURE & STN CPT-4: 19998 06/28/2015 PRESCRIP TRANSMIT VIA ERX SY CPT-4: G8553 06/28/2015 AEROBIC WOUND CULTURE & STN CPT-4: 71547 06/03/2015 PRESCRIP TRANSMIT VIA ERX SY CPT-4: G8553 06/03/2015 ROUTINE VENIPUNCTURE CPT-4: 79231 06/01/2015 COMPREHEN METABOLIC PANEL CPT-4: 50331 06/01/2015 A1C HPLC CPT-4: 95793 06/01/2015 COMPREHEN METABOLIC PANEL CPT-4: 15633 02/25/2015 A1C HPLC CPT-4: 19282 02/25/2015 DESTRUCT PREMALG LESION (Cryosurgery) CPT-4: 37814 PROTEIN/CREAT URINE WITH RATIO CPT-4: 24841|12886 5 MICROALBUMIN QUANTITATIVE CPT-4: 37755 10/27/2014 INFLUENZA ASSAY W/OPTIC CPT-4: 57273 10/21/2014 PRESCRIP TRANSMIT VIA ERX SY CPT-4: G8553 10/06/2014 PRESCRIP TRANSMIT VIA ERX SY CPT-4: G8553 09/21/2014 PRESCRIP TRANSMIT VIA ERX SY CPT-4: G8553 09/02/2014 MICROALBUMIN QUANTITATIVE CPT-4: 77138 08/27/2014 PROTEIN/CREAT URINE WITH RATIO CPT-4: 44545|39338 4 PPPS, subseq visit CPT-4: G0439 08/10/2014 ROUTINE VENIPUNCTURE CPT-4: 81456 08/05/2014 ASSAY OF FREE THYROXINE CPT-4: 27034 08/05/2014 ASSAY THYROID STIM HORMONE CPT-4: 02322 08/05/2014 COMPREHEN METABOLIC PANEL CPT-4: 89145 08/05/2014 COMPLETE CBC W/AUTO DIFF WBC CPT-4: 19360 08/05/2014 LIPID PANEL CPT-4: 15847 08/05/2014 A1C HPLC CPT-4: 03318 08/05/2014 FLUZONE, 5ML (Medicare) CPT-4: Q2038 08/05/2014 ADMIN INFLUENZA VIRUS VAC CPT-4: G0008 08/05/2014 METHYLPREDNISOLONE 40 MG INJ CPT-4: J1030 12/16/2013 TRIAMCINOLONE ACET INJ NOS CPT-4: J3301 12/16/2013 DRAIN/INJECT JOINT/BURSA CPT-4: 38541 12/16/2013 PRESCRIP TRANSMIT VIA ERX SY CPT-4: G8553 10/09/2013 THER/PROPH/DIAG INJ SC/IM CPT-4: 57903 09/18/2013 METHYLPREDNISOLONE 40 MG INJ CPT-4: J1030 09/18/2013 TRIAMCINOLONE ACET INJ NOS CPT-4: J3301 09/18/2013 PRESCRIP TRANSMIT VIA ERX SY CPT-4: G8553 09/18/2013 PRESCRIP TRANSMIT VIA ERX SY CPT-4: G8553 08/13/2013 ROUTINE VENIPUNCTURE CPT-4: 72197 06/25/2013 ASSAY OF FREE THYROXINE CPT-4: 32291 06/25/2013 ASSAY THYROID STIM HORMONE CPT-4: 93072 06/25/2013 COMPREHEN METABOLIC PANEL CPT-4: 67963 06/25/2013 COMPLETE CBC W/AUTO DIFF WBC CPT-4: 17007 06/25/2013 LIPID PANEL CPT-4: 64099 06/25/2013 A1C GLYCOSYLATED HEMOGLOBIN TEST CPT-4: 40625 013 ROUTINE VENIPUNCTURE CPT-4: 99300 04/09/2013 COMPLETE CBC W/AUTO DIFF WBC CPT-4: 94496 04/09/2013 MYCOPLASMA ANTIBODY, IFA CPT-4: 46669L5 04/09/2013 ROUTINE VENIPUNCTURE CPT-4: 91797 02/11/2013 ASSAY OF FREE THYROXINE CPT-4: 76133 02/11/2013 ASSAY THYROID STIM HORMONE CPT-4: 15771 02/11/2013 COMPREHEN METABOLIC PANEL CPT-4: 94520 02/11/2013 COMPLETE CBC W/AUTO DIFF WBC CPT-4: 70271 02/11/2013 VITAMIN B 12 FOLIC ACID CPT-4: 61634|20550 02/11/2013 C-REACTIVE PROTEIN CPT-4: 75608 02/11/2013 A1C GLYCOSYLATED HEMOGLOBIN TEST CPT-4: 80967 013 ASSAY OF BLOOD/URIC ACID CPT-4: 84802 02/11/2013 CEFTRIAXONE SODIUM INJECTION CPT-4: J0696 01/31/2013 THER/PROPH/DIAG INJ SC/IM CPT-4: 04563 01/31/2013 THER/PROPH/DIAG INJ SC/IM CPT-4: 55129 01/31/2013 METHYLPREDNISOLONE 40 MG INJ CPT-4: J1030 01/31/2013 TRIAMCINOLONE ACET INJ NOS CPT-4: J3301 01/31/2013 ROUTINE VENIPUNCTURE CPT-4: 74829 09/19/2012 COMPREHEN METABOLIC PANEL CPT-4: 87705 09/19/2012 LIPID PANEL CPT-4: 64729 09/19/2012 A1C GLYCOSYLATED HEMOGLOBIN TEST CPT-4: 14980 012 PNEUMOCOCCAL VACC 23 OLIVIA IM CPT-4: 65092 07/10/2012 FLUZONE, 5ML (Medicare) CPT-4: Q2038 07/10/2012 ADMIN INFLUENZA VIRUS VAC CPT-4: G0008 07/10/2012 ADMIN PNEUMOCOCCAL VACCINE CPT-4: G0009 07/10/2012 ROUTINE VENIPUNCTURE CPT-4: 18084 05/06/2012 ASSAY OF FREE THYROXINE CPT-4: 26976 05/06/2012 ASSAY THYROID STIM HORMONE CPT-4: 32034 05/06/2012 COMPREHEN METABOLIC PANEL CPT-4: 41945 05/06/2012 COMPLETE CBC W/AUTO DIFF WBC CPT-4: 63076 05/06/2012 LIPID PANEL CPT-4: 79282 05/06/2012 A1C GLYCOSYLATED HEMOGLOBIN TEST CPT-4: 79685 012 IMMUNIZATION ADMIN CPT-4: 69191 02/05/2012 FLUZONE, 5ML (Medicare) CPT-4: Q2038 08/10/2011 ADMIN INFLUENZA VIRUS VAC CPT-4: G0008 08/10/2011 ROUTINE VENIPUNCTURE CPT-4: 80605 07/26/2011 ASSAY OF FREE THYROXINE CPT-4: 06640 07/26/2011 ASSAY THYROID STIM HORMONE CPT-4: 66435 07/26/2011 COMPREHEN METABOLIC PANEL CPT-4: 19783 07/26/2011 COMPLETE CBC W/AUTO DIFF WBC CPT-4: 90782 07/26/2011 LIPID PANEL CPT-4: 04322 07/26/2011 A1C GLYCOSYLATED HEMOGLOBIN TEST CPT-4: 07865 011 ASSAY OF PSA TOTAL CPT-4: 34766 07/26/2011 ROUTINE VENIPUNCTURE CPT-4: 67760 01/19/2011 ASSAY OF NATRIURETIC PEPTIDE CPT-4: 17576 01/19/2011 THER/PROPH/DIAG INJ SC/IM CPT-4: 36935 01/19/2011 CEFTRIAXONE SODIUM INJECTION CPT-4: J0696 01/19/2011 METHYLPREDNISOLONE INJECTION CPT-4: J2930 01/19/2011 THER/PROPH/DIAG INJ SC/IM CPT-4: 09849 01/19/2011 THER/PROPH/DIAG INJ SC/IM CPT-4: 17408 01/18/2011 CEFTRIAXONE SODIUM INJECTION CPT-4: J0696 01/18/2011 METHYLPREDNISOLONE INJECTION CPT-4: J2930 01/18/2011 THER/PROPH/DIAG INJ SC/IM CPT-4: 62024 01/18/2011 THER/PROPH/DIAG INJ SC/IM CPT-4: 74872 12/21/2010 TESTOSTERONE CYPIONAT 100 MG CPT-4: J1070 12/21/2010 ROUTINE VENIPUNCTURE CPT-4: 09372 12/19/2010 TESTOSTERONE TOTAL - MALE CPT-4: 06337 12/19/2010 ROUTINE VENIPUNCTURE CPT-4: 27689 12/07/2010 COMPLETE CBC W/AUTO DIFF WBC CPT-4: 18876 12/07/2010 COMPREHEN METABOLIC PANEL CPT-4: 37503 12/07/2010 LIPID PANEL CPT-4: 98391 12/07/2010 A1C GLYCOSYLATED HEMOGLOBIN TEST CPT-4: 78245 011 ASSAY OF PSA TOTAL CPT-4: 77740 12/07/2010 ROUTINE VENIPUNCTURE CPT-4: 08121 04/05/2010 PRESCRIP TRANSMIT VIA ERX SY CPT-4: G8553 04/05/2010 ROUTINE VENIPUNCTURE CPT-4: 02837 01/13/2010 METHYLPREDNISOLONE INJECTION CPT-4: J2930 12/22/2009 THER/PROPH/DIAG INJ SC/IM CPT-4: 36608 12/22/2009 THER/PROPH/DIAG INJ SC/IM CPT-4: 55731 12/22/2009 CEFTRIAXONE SODIUM INJECTION CPT-4: J0696 12/22/2009 ROUTINE VENIPUNCTURE CPT-4: 97328 12/22/2009 COMPLETE CBC W/AUTO DIFF WBC CPT-4: 81790 12/22/2009 RBC SED RATE, AUTOMATED CPT-4: 94593 12/22/2009 RPR FE/E/EN/L/M 20.1-30.0 CM CPT-4: 70017 12/22/2009 EKG FOR INITIAL PREVENT EXAM CPT-4: G0403 12/22/2009 THER/PROPH/DIAG INJ SC/IM CPT-4: 77502 12/16/2009 KETOROLAC TROMETHAMINE INJ CPT-4: J1885 12/16/2009 [...] 1: 126/68 Code: 8480-6 BMI: 30.2 Code: 98293-4 Heart Rate 1: 92 bpm Height: 6' Respiratory Rate: 22 bpm SpO2: 94% Tempera ture: 36.9 (C) / 98.5 (F) Weight: 223 lbs 08/21/2018 Blood Pressure 1: 160/70 Code: 8480-6 Heart Rate 1: 79 bpm Respiratory Rate: 20 bpm SpO2: 94% Temperature: 36.7 (C) / 98.0 (F) We ight: 226 lbs 8 oz 08/07/2018 Blood Pressure 1: 138/70 Code: 8480-6 BMI: 30.1 Code: 68192-4 Heart Rate 1: 80 bpm Height: 6' Respiratory Rate: 20 bpm SpO2: 94% Tempera ture: 36.9 (C) / 98.5 (F) Weight: 222 lbs 05/23/2018 Blood Pressure 1: 148/66 Code: 8480-6 BMI: 30.0 Code: 57221-8 Heart Rate 1: 96 bpm Height: 6' Respiratory Rate: 22 bpm SpO2: 94% Tempera ture: 37.3 (C) / 99.1 (F) Weight: 221 lbs 05/02/2018 Blood Pressure 1: 146/78 Code: 8480-6 BMI: 29.6 Code: 96886-6 Heart Rate 1: 78 bpm Height: 6' Respiratory Rate: 26 bpm SpO2: 94% Tempera ture: 35.7 (C) / 96.2 (F) Weight: 218 lbs 04/29/2018 Blood Pressure 1: 142/62 Code: 8480-6 BMI: 28.6 Code: 42785-8 Heart Rate 1: 82 bpm Height: 6' Respiratory Rate: 22 bpm SpO2: 98% Tempera ture: 36.4 (C) / 97.6 (F) Weight: 211 lbs 04/22/2018 Blood Pressure 1: 126/64 Code: 8480-6 BMI: 30.0 Code: 30974-6 Heart Rate 1: 96 bpm Height: 6' [...] 1: 144/78 Code: 8480-6 BMI: 30.7 Code: 19111-2 Heart Rate 1: 92 bpm Height: 6' Respiratory Rate: 28 bpm SpO2: 94% Tempera ture: 36.9 (C) / 98.4 (F) Weight: 226 lbs 12/28/2017 Blood Pressure 1: 136/80 Code: 8480-6 Heart Rate 1: 92 bpm Respiratory Rate: 28 bpm SpO2: 94% Temperature: 36.7 (C) / 98.1 (F) 12/21/2017 Blood Pressure 1: 146/84 Code: 8480-6 BMI: 31.1 Code: 77436-2 Heart Rate 1: 84 bpm Height: 6' [...] 1: 142/64 Code: 8480-6 BMI: 31.3 Code: 55693-0 Heart Rate 1: 98 bpm Height: 6' Respiratory Rate: 24 bpm SpO2: 94% Tempera ture: 36.4 (C) / 97.6 (F) Weight: 231 lbs 10/17/2017 Blood Pressure 1: 140/68 Code: 8480-6 BMI: 31.7 Code: 82518-7 Heart Rate 1: 88 bpm Height: 6' Respiratory Rate: 20 bpm SpO2: 94% Tempera ture: 36.8 (C) / 98.3 (F) Weight: 234 lbs 08/02/2017 Blood Pressure 1: 142/80 Code: 8480-6 BMI: 31.1 Code: 64862-0 Heart Rate 1: 86 bpm Height: 6' Respiratory Rate: 20 bpm SpO2: 90% Tempera ture: 35.9 (C) / 96.7 (F) Weight: 229 lbs 07/02/2017 Blood Pressure 1: 146/64 Code: 8480-6 BMI: 29.6 Code: 18769-2 Heart Rate 1: 96 bpm Height: 6' Respiratory Rate: 20 bpm Temperature: 36 .4 (C) / 97.6 (F) Weight: 218 lbs 05/29/2017 Blood Pressure 1: 152/68 Code: 8480-6 BMI: 31.5 Code: 53020-5 Heart Rate 1: 100 bpm Height: 6' Respiratory Rate: 20 bpm SpO2: 92% Tempera ture: 36.9 (C) / 98.4 (F) Weight: 232 lbs 02/01/2017 Blood Pressure 1: 146/64 Code: 8480-6 BMI: 30.7 Code: 61424-5 Heart Rate 1: 76 bpm Height: 6' Respiratory Rate: 20 bpm SpO2: 95% Tempera ture: 36.8 (C) / 98.2 (F) Weight: 226 lbs 01/29/2017 Blood Pressure 1: 146/78 Code: 8480-6 Heart Rate 1: 84 bpm Respiratory Rate: 20 bpm SpO2: 96% Temperature: 36.1 (C) / 97.0 (F) We ight: 226 lbs 12/21/2016 Blood Pressure 1: 126/60 Code: 8480-6 BMI: 30.8 Code: 61532-2 Heart Rate 1: 88 bpm Height: 6' Respiratory Rate: 22 bpm SpO2: 94% Tempera ture: 36.7 (C) / 98.0 (F) Weight: 227 lbs 12/14/2016 Blood Pressure 1: 126/70 Code: 8480-6 BMI: 29.8 Code: 54334-0 Heart Rate 1: 92 bpm Height: 6' Respiratory Rate: 22 bpm SpO2: 93% Tempera ture: 36.8 (C) / 98.2 (F) Weight: 220 lbs 11/14/2016 Blood Pressure 1: 128/62 Code: 8480-6 Heart Rate 1: 100 bpm Respiratory Rate: 20 bpm SpO2: 96% Temperature: 36.6 (C) / 97.8 (F) We ight: 220 lbs 10/31/2016 Blood Pressure 1: 142/60 Code: 8480-6 BMI: 30.1 Code: 07774-0 Heart Rate 1: 112 bpm Height: 6' Respiratory Rate: 24 bpm SpO2: 93% Tempera ture: 37.1 (C) / 98.7 (F) Weight: 222 lbs 10/03/2016 Blood Pressure 1: 136/78 Code: 8480-6 Heart Rate 1: 106 bpm Respiratory Rate: 24 bpm SpO2: 93% Temperature: 36.6 (C) / 97.8 (F) We ight: 221 lbs 09/04/2016 Blood Pressure 1: 112/44 Code: 8480-6 BMI: 30.1 Code: 40238-6 Heart Rate 1: 90 bpm Height: 6' Respiratory Rate: 20 bpm SpO2: 93% Tempera ture: 36.6 (C) / 97.9 (F) Weight: 222 lbs 08/22/2016 Blood Pressure 1: 142/68 Code: 8480-6 BMI: 30.4 Code: 68224-8 Heart Rate 1: 100 bpm Height: 6' Respiratory Rate: 24 bpm SpO2: 93% Tempera ture: 36.7 (C) / 98.1 (F) Weight: 224 lbs 08/10/2016 Blood Pressure 1: 134/60 Code: 8480-6 BMI: 30.2 Code: 27792-5 Heart Rate 1: 76 bpm Height: 6' [...] 1: 122/72 Code: 8480-6 BMI: 30.7 Code: 69477-6 Heart Rate 1: 96 bpm Height: 6' Respiratory Rate: 22 bpm SpO2: 96% Tempera ture: 35.9 (C) / 96.7 (F) Weight: 226 lbs 04/03/2016 Blood Pressure 1: 146/64 Code: 8480-6 BMI: 30.8 Code: 52049-5 Heart Rate 1: 76 bpm Height: 6' Respiratory Rate: 20 bpm Temperature: 36 .8 (C) / 98.2 (F) Weight: 227 lbs 03/02/2016 Blood Pressure 1: 148/60 Code: 8480-6 BMI: 31.1 Code: 96979-6 Heart Rate 1: 80 bpm Height: 6' Respiratory Rate: 22 bpm SpO2: 94% Tempera ture: 36.6 (C) / 97.8 (F) Weight: 229 lbs 02/17/2016 Blood Pressure 1: 132/60 Code: 8480-6 BMI: 31.3 Code: 26433-3 Heart Rate 1: 80 bpm Height: 6' Respiratory Rate: 20 bpm Temperature: 36 .9 (C) / 98.4 (F) Weight: 231 lbs 02/14/2016 Blood Pressure 1: 126/70 Code: 8480-6 BMI: 31.3 Code: 29211-0 Heart Rate 1: 80 bpm Height: 6' Respiratory Rate: 24 bpm SpO2: 95% Tempera ture: 36.9 (C) / 98.5 (F) Weight: 231 lbs 01/31/2016 Blood Pressure 1: 136/60 Code: 8480-6 Heart Rate 1: 76 bpm Respiratory Rate: 22 bpm Temperature: 37.0 (C) / 98.6 (F) Weight: 230 lbs 12/30/2015 Blood Pressure 1: 128/58 Code: 8480-6 BMI: 31.2 Code: 38556-5 Heart Rate 1: 80 bpm Height: 6' Respiratory Rate: 20 bpm Temperature: 36 .8 (C) / 98.2 (F) Weight: 230 lbs 12/16/2015 Blood Pressure 1: 122/60 Code: 8480-6 BMI: 32.0 Code: 25108-6 Heart Rate 1: 84 bpm Height: 6' Respiratory Rate: 24 bpm Temperature: 37 .1 (C) / 98.7 (F) Weight: 236 lbs 12/06/2015 Blood Pressure 1: 162/74 Code: 8480-6 BMI: 32.5 Code: 99513-3 Heart Rate 1: 90 bpm Height: 6' Respiratory Rate: 20 bpm SpO2: 96% Tempera ture: 36.4 (C) / 97.6 (F) Weight: 240 lbs 11/15/2015 Blood Pressure 1: 166/80 Code: 8480-6 BMI: 32.4 Code: 72581-3 Heart Rate 1: 92 bpm Height: 6' Respiratory Rate: 28 bpm Temperature: 36 .5 (C) / 97.7 (F) Weight: 239 lbs 10/05/2015 Blood Pressure 1: 146/76 Code: 8480-6 BMI: 32.4 Code: 34323-8 Heart Rate 1: 88 bpm Height: 6' Respiratory Rate: 28 bpm Temperature: 37 .1 (C) / 98.7 (F) Weight: 239 lbs 07/22/2015 Blood Pressure 1: 144/68 Code: 8480-6 BMI: 31.9 Code: 61579-0 Heart Rate 1: 88 bpm Height: 6' [...] 1: 142/64 Code: 8480-6 BMI: 32.1 Code: 02699-5 Heart Rate 1: 80 bpm Height: 6' Respiratory Rate: 18 bpm Temperature: 36 .4 (C) / 97.6 (F) Weight: 237 lbs 06/07/2015 Blood Pressure 1: 164/58 Code: 8480-6 BMI: 32.1 Code: 02938-9 Heart Rate 1: 88 bpm Height: 6' Respiratory Rate: 20 bpm Temperature: 36 .6 (C) / 97.9 (F) Weight: 237 lbs 06/03/2015 Blood Pressure 1: 152/64 Code: 8480-6 BMI: 32.1 Code: 38612-7 Heart Rate 1: 96 bpm Height: 6' Respiratory Rate: 20 bpm Temperature: 37 .4 (C) / 99.3 (F) Weight: 237 lbs 06/01/2015 Blood Pressure 1: 136/70 Code: 8480-6 BMI: 31.7 Code: 16950-0 Heart Rate 1: 72 bpm Height: 6' Respiratory Rate: 22 bpm SpO2: 94% Tempera ture: 36.6 (C) / 97.9 (F) Weight: 234 lbs 02/25/2015 Blood Pressure 1: 146/80 Code: 8480-6 BMI: 32.4 Code: 74023-7 Heart Rate 1: 84 bpm Height: 6' Respiratory Rate: 28 bpm Temperature: 36 .7 (C) / 98.0 (F) Weight: 239 lbs 10/27/2014 Blood Pressure 1: 168/70 Code: 8480-6 BMI: 32.0 Code: 33730-0 Heart Rate 1: 80 bpm Height: 6' Respiratory Rate: 30 bpm SpO2: 98% Tempera ture: 36.4 (C) / 97.6 (F) Weight: 236 lbs 10/21/2014 Blood Pressure 1: 152/58 Code: 8480-6 BMI: 32.1 Code: 63120-8 Heart Rate 1: 78 bpm Height: 6' Respiratory Rate: 20 bpm Temperature: 37 .8 (C) / 100.1 (F) Weight: 237 lbs 10/06/2014 Blood Pressure 1: 132/64 Code: 8480-6 BMI: 32.5 Code: 04664-9 Heart Rate 1: 88 bpm Height: 6' Respiratory Rate: 32 bpm SpO2: 94% Tempera ture: 36.8 (C) / 98.2 (F) Weight: 240 lbs 09/21/2014 Blood Pressure 1: 134/68 Code: 8480-6 BMI: 32.4 Code: 21419-5 Heart Rate 1: 96 bpm Height: 6' Respiratory Rate: 30 bpm Temperature: 36 .7 (C) / 98.1 (F) Weight: 239 lbs 09/08/2014 Blood Pressure 1: 128/74 Code: 8480-6 BMI: 32.4 Code: 86949-8 Heart Rate 1: 82 bpm Height: 6' Respiratory Rate: 28 bpm SpO2: 93% Tempera ture: 36.6 (C) / 97.8 (F) Weight: 239 lbs 09/02/2014 Blood Pressure 1: 164/78 Code: 8480-6 Heart Rate 1: 86 bpm Respiratory Rate: 22 bpm SpO2: 96% Temperature: 36.1 (C) / 97.0 (F) We ight: 239 lbs 08/10/2014 Blood Pressure 1: 152/60 Code: 8480-6 BMI: 32.8 Code: 84268-1 Heart Rate 1: 80 bpm Height: 6' [...] 1: 146/80 Code: 8480-6 BMI: 33.9 Code: 45893-4 Heart Rate 1: 80 bpm Height: 6' [...] 1: 148/78 Code: 8480-6 BMI: 30.5 Code: 34141-9 Heart Rate 1: 84 bpm Height: 6' Respiratory Rate: 28 bpm SpO2: 97% Tempera ture: 36.4 (C) / 97.5 (F) Weight: 225 lbs 08/06/2013 Blood Pressure 1: 158/70 Code: 8480-6 Heart Rate 1: 110 bpm Respiratory Rate: 22 bpm SpO2: 88% Temperature: 39.7 (C) / 103.4 (F) W eight: 07/16/2013 Blood Pressure 1: 148 Code: 8480-6 BMI: 31.9 Code: 51351-2 Heart Rate 1: 80 bpm Height: 6' Respiratory Rate: 20 bpm Temperature: 36 .6 (C) / 97.9 (F) Weight: 235 lbs 04/09/2013 Blood Pressure 1: 142 Code: 8480-6 BMI: 31.5 Code: 39999-0 Heart Rate 1: 88 bpm Height: 6' Respiratory Rate: 32 bpm SpO2: 95% Tempera ture: 37.0 (C) / 98.6 (F) Weight: 232 lbs 02/11/2013 Blood Pressure 1: 14670 Code: 8480-6 Heart Rate 1: 88 bpm Respiratory Rate: 20 bpm Temperature: 36.8 (C) / 98.3 (F) Weight: 230 lbs 01/31/2013 Blood Pressure 1: 128/70 Code: 8480-6 BMI: 31.6 Code: 07349-1 Heart Rate 1: 84 bpm Height: 6' Respiratory Rate: 24 bpm SpO2: 92% Tempera ture: 36.7 (C) / 98.0 (F) Weight: 233 lbs 01/20/2013 Blood Pressure 1: 14864 Code: 8480-6 BMI: 31.6 Code: 08756-7 Heart Rate 1: 68 bpm Height: 6' Temperature: 36.1 (C) / 97.0 (F) Weight: 233 lbs 12/19/2012 Blood Pressure 1: 128/68 Code: 8480-6 BMI: 32.0 Code: 93557-7 Heart Rate 1: 64 bpm Height: 6' Temperature: 36.7 (C) / 98.0 (F) Weight: 236 lbs 10/21/2012 Blood Pressure 1: 142/64 Code: 8480-6 BMI: 30.9 Code: 48107-1 Heart Rate 1: 74 bpm Height: 6' Temperature: 36.2 (C) / 97.1 (F) Weight: 228 lbs 09/18/2012 Blood Pressure 1: 126/60 Code: 8480-6 BMI: 31.3 Code: 53308-6 Heart Rate 1: 88 bpm Height: 6' Respiratory Rate: 20 bpm Temperature: 36 .5 (C) / 97.7 (F) Weight: 231 lbs 08/28/2012 Blood Pressure 1: 132/68 Code: 8480-6 BMI: 31.5 Code: 97337-3 Heart Rate 1: 92 bpm Height: 6' Respiratory Rate: 30 bpm SpO2: 94% Tempera ture: 37.1 (C) / 98.7 (F) Weight: 232 lbs 07/10/2012 Blood Pressure 1: 118/70 Code: 8480-6 BMI: 30.5 Code: 05202-0 Heart Rate 1: 72 bpm Height: 6' Respiratory Rate: 24 bpm SpO2: 96% Tempera ture: 36.7 (C) / 98.0 (F) Weight: 225 lbs 05/09/2012 Blood Pressure 1: 124/68 Code: 8480-6 BMI: 29.8 Code: 96879-8 Heart Rate 1: 72 bpm Height: 6' Respiratory Rate: 20 bpm Temperature: 36 .8 (C) / 98.2 (F) Weight: 220 lbs 10/02/2011 Blood Pressure 1: 140/82 Code: 8480-6 BMI: 30.7 Code: 06315-9 Heart Rate 1: 68 bpm Height: 6' Temperature: 36.7 (C) / 98.0 (F) Weight: 226 lbs 08/07/2011 Blood Pressure 1: 122/68 Code: 8480-6 BMI: 30.5 Code: 86131-3 Heart Rate 1: 72 bpm Height: 6' [...] 1: 140/78 Code: 8480-6 BMI: 31.9 Code: 03581-4 Heart Rate 1: 84 bpm Height: 6' Temperature: 36.6 (C) / 97.8 (F) Weight: 235 lbs 12/22/2009 Blood Pressure 1: 140/74 Code: 8480-6 BMI: 31.9 Code: 94044-3 Heart Rate 1: 94 bpm Height: 6' SpO2: 92% Temperature: 35.7 (C) / 96.2 (F) Weight: 235 lbs 12/13/2009 Blood Pressure 1: 146/80 Code: 8480-6 BMI: 33.0 Code: 86407-3 Heart Rate 1: 86 bpm Height: 6' [...] fighting constantly with her. follow up 04/22/2018 [facility] 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 follow up 05/29/2017 Discuss Low Back [...] nightly. Patient has just been discharged from [place] with Pneumonia. Currently on Levaquin once daily. [...] would like evaluated follow up 06/13/2016 Hospital fw COPD w/exac 06/01/2016 Patient states chest tightness, shortness of breath, and fatigue have worsened in the last 2-3 weeks with exertion. otalgia 04/26/2016 cerumen 04/05/2016 Patient has been maximiliano ing ear drops follow up 04/03/2016 2mo fwup follow up 03/13/2016 Patient here for [facility] on medication education for insulin [...] 02/25/2015 3mo fwup follow up 10/27/2014 Hospital [facility] cough 10/21/2014 follow up 10/06/2014 follow up 09/21/2014 Hospital [facility] follow up 09/08/2014 [facility] cough 09/02/2014 well man exam (65+ years) 08/10/2014 lab draw 08/05/2014 flu shot follow up 05/05/2014 6wk fwup follow up 03/24/2014 2wk [facility] shortness of breath 03/10/2014 shoulder pain 12/16/2013 Request back brace w hen working/lifting---chiropractor had recommended he get one to wear shortness of breath 10/09/2013 cough 09/18/2013 follow up 08/13/2013 [facility] cough 08/06/2013 follow up 07/16/2013 lab draw [...] Date () OFFICE/OUTPATIENT VISIT EST Diagnosis: Chronic obstructive pulmonary disease, unspecified[ICD10: J44.9] Lita BARAKAT DO [facility] CPT-4: 88654 03/04/2020 ([id number]) OFFICE/OUTPATIENT VISIT EST Diagnosis: Chronic obstructive pulmonary disease, unspecified[ICD10: J44.9] Lita BARAKAT [facility] CPT-4: 53402 02/04/2020 ([id number]) OFFICE/OUTPATIENT VISIT EST Diagnosis: Chronic obstructive pulmonary disease with (acute) exacerbation[ICD10: J44.1] Lita BARAKAT DO [facility] CPT- 4: 48150 12/25/2019 ([id number]) OFFICE/OUTPATIENT VISIT EST Diagnosis: Noncompliance with diabetes treatment[ICD10: Z91.19] Diagnosis: Insomnia[ICD10: G47.00] Diagnosis: Pain in right knee[ICD10: M25.561] [facility] CPT[facility]: 44898 12/22/2019 ([id number]) OFFICE/OUTPATIENT VISIT EST Diagnosis: Chronic respiratory failure with hypercapnia[ICD10: J96.12] Diagnosis: Chronic airway obstruction, not elsewhere classified[ICD10: J44.9] Diagnosis: Basal cell carcinoma, face[ICD10: C44.310] Lita BARAKAT [facility] CPT-4: 59504 11/12/2019 ([id number]) OFFICE/OUTPATIENT VISIT EST Diagnosis: Chronic obstructive pulmonary disease, unspecified[ICD10: J44.9] Diagnosis: Right thyroid nodule[ICD10: E04.1] [facility]: 39253 09/11/2019 ([id number]) OFFICE/OUTPATIENT VISIT EST Diagnosis: Chronic bronchitis[ICD10: J42] 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] Diagnosis: FLU VACCINE[ICD10: Z23] Lita [facility] CPT-4: 80882 08/07/2019 ([id number]) OFFICE/OUTPATIENT VISIT EST Diagnosis: Chronic obstructive pulmonary disease with (acute) exacerbation[ICD10: J44.1] [facility] CPT- [facility]: 59312 07/14/2019 ([id number]) OFFICE/OUTPATIENT VISIT EST Diagnosis: Primary insomnia[ICD10: F51.01] Diagnosis: Dyspepsia and other specified disorders of function of stomach[ICD10: K31.89] Lita BARAKAT DO [facility] CPT-4: 86040 07/01/2019 ([id number]) OFFICE/OUTPATIENT VISIT EST Diagnosis: Epigastric pain[ICD10: R10.13] Diagnosis: Nausea[ICD10: R11.0] Diagnosis: Weight loss[ICD10: R63.4] Lita AREVALO DO [facility] CPT-4: 85007 06/24/2019 ([id number]) OFFICE/OUTPATIENT VISIT EST Diagnosis: Chronic obstructive pulmonary disease, unspecified[ICD10: J44.9] Diagnosis: Chronic insomnia[ICD10: F51.04] Diagnosis: Anemia[ICD10: D64.9] Diagnosis: Diplopia[ICD10: H53.2] Diagnosis: [place][ICD10: F30.9] Lita BARAKAT DO [facility] CPT-4: 82818 06/17/2019 ([id number]) NURSE/OUTPATIENT VISIT EST Diagnosis: Vitamin B12 deficiency anemia, unspecified[ICD10: D51.9] Lita BARAKAT DO [facility] CPT-4: 63541 06/10/2019 ([id number]) NURSE/OUTPATIENT VISIT EST Diagnosis: Vitamin B12 deficiency anemia, unspecified[ICD10: D51.9] Lita BARAKAT DO [facility] CPT-4: 03265 06/02/2019 ([id number]) NURSE/OUTPATIENT VISIT EST Diagnosis: Vitamin B12 deficiency anemia, unspecified[ICD10: D51.9] Lita BARAKAT DO [facility] CPT-4: 10566 05/27/2019 ([id number]) NURSE/OUTPATIENT VISIT EST Diagnosis: Vitamin B12 deficiency anemia, unspecified[ICD10: D51.9] Lita BARAKAT DO [facility] CPT-4: 61126 05/12/2019 ([id number]) OFFICE/OUTPATIENT VISIT EST Diagnosis: Restless legs syndrome[ICD10: G25.81] Diagnosis: Primary insomnia[ICD10: F51.01] Diagnosis: Anemia, unspecified[ICD10: D64.9] Diagnosis: Type 2 diabetes mellitus with hyperglycemia[ICD10: E11.65] Diagnosis: Vitamin D deficiency, unspecified[ICD10: E55.9] Lita BARAKAT DO [facility] CPT-4: 02720 05/08/2019 ([id number]) OFFICE/OUTPATIENT VISIT EST Diagnosis: Pain in right knee[ICD10: M25.561] Diagnosis: Restless legs syndrome[ICD10: G25.81] Diagnosis: Insomnia, unspecified[ICD10: G47.00] Lita BARAKAT DO [facility] CPT-4: 34535 04/07/2019 ([id number]) NO CHARGE Diagnosis: Chronic obstructive pulmonary disease with (acute) exacerbation[ICD10: J44.1] Diagnosis: Dizziness and giddiness[ICD10: R42] Diagnosis: Generalized anxiety disorder[ICD10: F41.1] Autumn BARAKAT DO [facility] CPT-4: 96351 03/24/2019 ([id number]) OFFICE/OUTPATIENT VISIT EST Diagnosis: Chronic obstructive pulmonary disease with (acute) exacerbation[ICD10: J44.1] Diagnosis: Dizziness and giddiness[ICD10: R42] Autumn CONDE SFerdinand BARAKAT [facility] CPT-4: 92608 03/21/2019 ([id number]) OFFICE/OUTPATIENT VISIT EST Diagnosis: Candidal stomatitis[ICD10: B37.0] Lita BARAKAT DO [facility] CPT-4: 74386 03/13/2019 ([id number]) OFFICE/OUTPATIENT VISIT EST Diagnosis: Chronic obstructive pulmonary disease with acute lower respiratory infection[ICD10: J44.0] Diagnosis: Restless legs syndrome[ICD10: G25.81] Lita BARAKAT [employer] [facility] CPT-4: 27566 03/10/2019 ([id number]) OFFICE/OUTPATIENT VISIT EST Diagnosis: Restless legs syndrome[ICD10: G25.81] Lita CASTELLANOSNDER [facility] CPT-4: 66226 02/26/2019 ([id number]) OFFICE/OUTPATIENT VISIT EST Diagnosis: Primary insomnia[ICD10: F51.01] Diagnosis: Chronic obstructive pulmonary disease, unspecified[ICD10: J44.9] Lita BARAKAT [employer] [facility] CPT-4: 99354 02/13/2019 ([id number]) OFFICE/OUTPATIENT VISIT EST Diagnosis: Chronic obstructive pulmonary disease, unspecified[ICD10: J44.9] Diagnosis: Chronic respiratory failure with hypoxia[ICD10: J96.11] Diagnosis: Chronic respiratory failure with hypercapnia[ICD10: J96.12] Lita BARAKAT DO [facility] CPT-4: 11423 01/14/2019 ([id number]) OFFICE/OUTPATIENT VISIT EST Diagnosis: Chronic respiratory failure with hypoxia[ICD10: J96.11] Diagnosis: Patient's noncompliance with other medical treatment and regimen[ICD10: Z91.19] Diagnosis: Chronic obstructive pulmonary disease with (acute) exacerbation[ICD10: J44.1] Lita BARAKAT [employer] [facility] CPT- 4: 68242 12/25/2018 ([id number]) OFFICE/OUTPATIENT VISIT EST Diagnosis: Essential (primary) hypertension[ICD10: I10] Diagnosis: Type 2 diabetes mellitus with hyperglycemia[ICD10: E11.65] Diagnosis: Hypothyroidism, unspecified[ICD10: E03.9] Diagnosis: Hyperlipidemia, unspecified[ICD10: E78.5] Diagnosis: Acute recurrent maxillary sinusitis[ICD10: J01.01] Ines Lavonnestacey BARAKAT [employer] [facility] CPT-4: 81966 12/09/2018 ([id number]) OFFICE/OUTPATIENT VISIT EST Diagnosis: Candidal stomatitis[ICD10: B37.0] Lita ALYOSCAR Segura Ashley BARAKAT [employer] [facility] CPT-4: 51223 12/05/2018 ([id number]) OFFICE/OUTPATIENT VISIT EST Diagnosis: Acute recurrent sinusitis, unspecified[ICD10: J01.91] Diagnosis: Pain in right knee[ICD10: M25.561] Lita Barakat KEVIN GONZALES Ashley BARAKAT [employer] [facility] CPT-4: 53992 10/23/2018 ([id number]) OFFICE/OUTPATIENT VISIT EST Diagnosis: Restless legs syndrome[ICD10: G25.81] Diagnosis: Basal cell carcinoma of skin of scalp and neck[ICD10: C44.41] Lita BARAKAT DO [facility] CPT-4: 04557 08/21/2018 ([id number]) OFFICE/OUTPATIENT VISIT EST Diagnosis: Chronic obstructive pulmonary disease with acute lower respiratory infection[ICD10: J44.0] Diagnosis: Restless legs syndrome[ICD10: G25.81] Lita BARAKAT DO [facility] CPT-4: 08233 08/07/2018 ([id number]) OFFICE/OUTPATIENT VISIT EST Diagnosis: Chronic obstructive pulmonary disease with acute lower respiratory infection[ICD10: J44.0] Lita BARAKAT DO [facility] CPT-4: 56527 05/23/2018 ([id number]) OFFICE/OUTPATIENT VISIT EST Diagnosis: Candidal stomatitis[ICD10: B37.0] Lita BARAKAT DO [facility] CPT-4: 52067 05/02/2018 ([id number]) OFFICE/OUTPATIENT VISIT EST Diagnosis: Candidal stomatitis[ICD10: B37.0] Diagnosis: Other retention of urine[ICD10: R33.8] Diagnosis: Chronic obstructive pulmonary disease with acute lower respiratory infection[ICD10: J44.0] Autumn BARAKAT DO [facility] CPT-4: 57886 04/29/2018 ([id number]) OFFICE/OUTPATIENT VISIT EST Diagnosis: Chronic obstructive pulmonary disease with acute lower respiratory infection[ICD10: J44.0] Lita BARAKAT DO [facility] CPT-4: 72810 04/22/2018 ([id number]) OFFICE/OUTPATIENT VISIT EST Diagnosis: Unilateral primary osteoarthritis, right knee[ICD10: M17.11] Diagnosis: Squamous cell carcinoma of skin, unspecified[ICD10: C44.92] Lita BARAKAT DO [facility] CPT-4: 05491 01/28/2018 ([id number]) OFFICE/OUTPATIENT VISIT EST Diagnosis: Pain in right knee[ICD10: M25.561] Diagnosis: 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] Lita BARAKAT DO [facility] CPT-4: 72191 01/23/2018 ([id number]) OFFICE/OUTPATIENT VISIT EST Diagnosis: Urinary tract infection, site not specified[ICD10: N39.0] Diagnosis: Chronic obstructive pulmonary disease with acute lower respiratory infection[ICD10: J44.0] Lita BARAKAT DO [facility] CPT-4: 08779 01/02/2018 ([id number]) OFFICE/OUTPATIENT VISIT EST Diagnosis: Chronic obstructive pulmonary disease with (acute) exacerbation[ICD10: J44.1] Autumn BARAKAT DO [facility] CPT- 4: 16586 12/28/2017 ([id number]) OFFICE/OUTPATIENT VISIT EST Diagnosis: Acute bronchitis, unspecified[ICD10: J20.9] Autumn BARAKAT DO [facility] CPT-4: 21432 12/21/2017 ([id number]) OFFICE/OUTPATIENT VISIT EST Diagnosis: Chronic obstructive pulmonary disease with acute lower respiratory infection[ICD10: J44.0] Diagnosis: Pain in right knee[ICD10: M25.561] Autumn BARAKAT DO [facility] CPT-4: 49065 12/17/2017 ([id number]) OFFICE/OUTPATIENT VISIT EST Diagnosis: Laceration without foreign body of right hand, sequela[ICD10: S61.411S] Diagnosis: Restless legs syndrome[ICD10: G25.81] Lita BARAKAT [facility] CPT-4: 16379 10/17/2017 OFFICE/OUTPATIENT VISIT EST Diagnosis: Chronic obstructive pulmonary disease with acute lower respiratory infection[ICD10: J44.0] Autumn BARAKAT DO [facility] CPT-4: 59010 08/02/2017 ([id number]) OFFICE/OUTPATIENT VISIT EST Diagnosis: PNEUMOCOCCAL VACCINE[ICD10: Z23] Lita BARAKAT DO [facility] CPT-4: 93933 07/24/2017 OFFICE/OUTPATIENT VISIT EST Diagnosis: Chronic obstructive pulmonary disease with (acute) exacerbation[ICD10: J44.1] Autumn BARAKAT DO [facility] CPT- 4: 82598 07/02/2017 OFFICE/OUTPATIENT VISIT EST Diagnosis: Low back pain[ICD10: M54.5] Ruchi KapoorPrater LITA GHOTRA DO [facility] CPT-4: 48847 05/29/2017 ([id number]) OFFICE/OUTPATIENT VISIT EST Diagnosis: Essential (primary) hypertension[ICD10: I10] Diagnosis: Hypothyroidism, unspecified[ICD10: E03.9] Diagnosis: Dizziness and giddiness[ICD10: R42] Diagnosis: Other abnormality of red blood cells[ICD10: R71.8] Diagnosis: Contracture of muscle, unspecified site[ICD10: M62.40] Lita BARAKAT [employer] [facility] CPT-4: 46348 04/17/2017 OFFICE/OUTPATIENT VISIT EST Diagnosis: Pain in left shoulder[ICD10: M25.512] Ruchi HectorAnkur TADEO BARAKAT [employer] [facility] CPT-4: 23918 01/29/2017 ([id number]) OFFICE/OUTPATIENT VISIT EST Diagnosis: Anemia, unspecified[ICD10: D64.9] Lita GOODE Daja Ashley BARAKAT [employer] [facility] CPT-4: 68564 12/27/2016 ([id number]) OFFICE/OUTPATIENT VISIT EST Diagnosis: Other fatigue[ICD10: R53.83] Diagnosis: Other iron deficiency anemias[ICD10: D50.8] Lita BARAKAT [employer] [facility] CPT-4: 68474 12/21/2016 ([id number]) OFFICE/OUTPATIENT VISIT EST Diagnosis: Anemia, unspecified[ICD10: D64.9] Diagnosis: Other fatigue[ICD10: R53.83] Diagnosis: Restless legs syndrome[ICD10: G25.81] Lita BARAKAT [employer] [facility] CPT-4: 14376 12/14/2016 ([id number]) OFFICE/OUTPATIENT VISIT EST Diagnosis: Anemia, unspecified[ICD10: D64.9] Diagnosis: Other abnormality of red blood cells[ICD10: R71.8] Lita ALYLINE Ashley BARAKAT [employer] [facility] CPT-4: 24893 12/12/2016 ([id number]) OFFICE/OUTPATIENT VISIT EST Diagnosis: Pneumonia, unspecified organism[ICD10: J18.9] Diagnosis: Restless legs syndrome[ICD10: G25.81] Magda Toth TADEO TRAN Ashley BARAKAT [facility] CPT-4: 49755 11/14/2016 ([id number]) OFFICE/OUTPATIENT VISIT EST Diagnosis: Candidal stomatitis[ICD10: B37.0] Lita Jasminbetty Segura Ashley BARAKAT [facility] CPT-4: 82508 10/31/2016 ([id number]) OFFICE/OUTPATIENT VISIT EST Diagnosis: Acute upper respiratory infection, unspecified[ICD10: J06.9] Diagnosis: Personal history of pneumonia (recurrent)[ICD10: Z87.01] Magda HERRMANNQUELINE Ashley BARAKAT [facility] CPT-4: 74614 10/03/2016 ([id number]) OFFICE/OUTPATIENT VISIT EST Diagnosis: Restless legs syndrome[ICD10: G25.81] Diagnosis: Insomnia, unspecified[ICD10: G47.00] Magda Toth JERMAIN LOPEZ [facility] CPT-[facility]: 10133 09/04/2016 ([id number]) OFFICE/OUTPATIENT VISIT EST Diagnosis: Restless legs syndrome[ICD10: G25.81] Diagnosis: Primary insomnia[ICD10: F51.01] Lita Jasminjosefbrii LITA Ashley BARAKAT [facility] CPT-4: 73578 08/10/2016 OFFICE/OUTPATIENT VISIT EST Diagnosis: Toxic gastroenteritis and colitis[ICD10: K52.1] Diagnosis: Dizziness and giddiness[ICD10: R42] Diagnosis: Headache[ICD10: R51] Diagnosis: Restless legs syndrome[ICD10: G25.81] Lita Jasminbetty TRAN Ashley BARAKAT [facility] CPT-4: 53818 07/06/2016 ([id number]) OFFICE/OUTPATIENT VISIT EST Diagnosis: Chest pain, unspecified[ICD10: R07.9] Diagnosis: Dyspnea, unspecified[ICD10: R06.00] Magda Toth ELLIS CONDE Ashley BARAKAT [facility] CPT-4: 23708 06/22/2016 ([id number]) OFFICE/OUTPATIENT VISIT EST 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 CPT-[facility]: 97266 06/01/2016 ([id number]) OFFICE/OUTPATIENT VISIT EST Diagnosis: Unspecified hearing loss, left ear[ICD10: H91.92] Diagnosis: Other specified disorders of Eustachian tube, left ear[ICD10: H69.82] Magda ALYLINE [facility] CPT-4: 76395 11/2015 ([id number]) OFFICE/OUTPATIENT VISIT EST Diagnosis: Impacted cerumen, bilateral[ICD10: H61.23] Diagnosis: DM W/O COMPLICATION TYPE I, 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: E10.9] Diagnosis: Generalized anxiety disorder[ICD10: F41.1] Lita Jasminbetty CRAWFORD DonovanFerdinand 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 CPT - 4: 29895 03/13/2016 ([id number]) OFFICE/OUTPATIENT VISIT EST Diagnosis: Type 2 diabetes mellitus with hyperglycemia[ICD10: E11.65] Diagnosis: Hyperlipidemia, unspecified[ICD10: E78.5] Diagnosis: Essential (primary) hypertension[ICD10: I10] Diagnosis: Chronic obstructive pulmonary disease, unspecified[ICD10: J44.9] Diagnosis: Testicular hypofunction[ICD10: E29.1] Diagnosis: Male erectile dysfunction, unspecified[ICD10: N52.9] Diagnosis: Anemia, unspecified[ICD10: D64.9] Lita Segura DonovanFerdinand GASPER [facility] CPT-4: 70473 03/06/2016 ([id number]) OFFICE/OUTPATIENT VISIT EST Diagnosis: Type 2 diabetes mellitus with hyperglycemia[ICD10: E11.65] Diagnosis: Hyperlipidemia, unspecified[ICD10: E78.5] Diagnosis: Chronic obstructive pulmonary disease, unspecified[ICD10: J44.9] Diagnosis: Male erectile dysfunction, unspecified[ICD10: N52.9] Lita BARAKAT DO [facility] CPT-4: 68145 03/02/2016 ([id number]) OFFICE/OUTPATIENT VISIT EST Diagnosis: Pain in right foot[ICD10: M79.671] Magda Toth JERMAINDARLING GONZALES Ashley BARAKAT DO [facility] CPT-4: 66365 02/14/2016 OFFICE/OUTPATIENT VISIT EST Diagnosis: Generalized anxiety disorder[ICD10: F41.1] Lita BARAKAT DO [facility] CPT-4: 15096 01/31/2016 ([id number]) OFFICE/OUTPATIENT VISIT EST Diagnosis: Generalized anxiety disorder[ICD10: F41.1] Lita BARAKAT DO [facility] CPT-4: 85538 12/30/2015 ([id number]) OFFICE/OUTPATIENT VISIT EST Diagnosis: Localized swelling, mass and lump, neck[ICD10: R22.1] Lita BARAKAT DO [facility] CPT-4: 20157 12/16/2015 OFFICE/OUTPATIENT VISIT EST Diagnosis: Localized enlarged lymph nodes[ICD10: R59.0] Diagnosis: Otalgia, left ear[ICD10: H92.02] Stephanie BARAKAT DO [facility] CPT-4: 20521 12/06/2015 OFFICE/OUTPATIENT VISIT EST Diagnosis: Localized enlarged lymph nodes[ICD10: R59.0] Diagnosis: Squamous cell carcinoma of skin, unspecified[ICD10: C44.92] Diagnosis: Actinic keratosis[ICD10: L57.0] Stephanie BARAKAT DO [facility] CPT-4: 87922 11/15/2015 OFFICE/OUTPATIENT VISIT EST Diagnosis: Cellulitis of left lower limb[ICD10: L03.116] Diagnosis: Encounter for examination and observation for other specified reasons[ICD10: Z04.8] Diagnosis: Chronic obstructive pulmonary disease, unspecified[ICD10: J44.9] Stephanie BARAKAT DO [facility] CPT-4: 27767 07/22/2015 OFFICE/OUTPATIENT VISIT EST Diagnosis: Other specified joint disorders, left knee[ICD10: M25.862] Diagnosis: Cellulitis of left lower limb[ICD10: L03.116] Diagnosis: Other fatigue[ICD10: R53.83] Diagnosis: Hyperlipidemia, unspecified[ICD10: E78.5] Stephanie BARAKAT DO [facility] CPT-4: 34647 07/01/2015 OFFICE/OUTPATIENT VISIT EST Diagnosis: Pain in left knee[ICD10: M25.562] Diagnosis: Cellulitis of left lower limb[ICD10: L03.116] Diagnosis: Other specified joint disorders, left knee[ICD10: M25.862] Stephanie BARAKAT DO [facility] CPT-4: 28658 06/28/2015 OFFICE/OUTPATIENT VISIT EST Diagnosis: PREPATELLAR BURSITIS[ICD9: 726.65] Diagnosis: Cellulitis of knee, left[ICD9: 682.6] Stephanie BARAKAT DO [facility] CPT-4: 88629 06/09/2015 ([id number]) OFFICE/OUTPATIENT VISIT EST Diagnosis: PREPATELLAR BURSITIS[ICD9: 726.65] Diagnosis: Cellulitis of knee, left[ICD9: 682.6] Lita BARAKAT [facility] CPT-4: 30580 06/07/2015 OFFICE/OUTPATIENT VISIT EST Diagnosis: Cellulitis of knee, left[ICD9: 682.6] Stephanie BARAKAT DO [facility] CPT-4: 54654 06/03/2015 ([id number]) OFFICE/OUTPATIENT VISIT EST Diagnosis: DM W/O COMPLICATION TYPE II, UNCONTROLLED[ICD9: 250.02] Diagnosis: COPD[ICD9: 496] Lita ALYLINE Ashley BARAKAT [facility] CPT- 4: 91372 06/01/2015 ([id number]) OFFICE/OUTPATIENT VISIT EST Diagnosis: COPD[ICD9: 496] Diagnosis: DYSPNEA[ICD9: 786.09] Diagnosis: DM W/O COMPLICATION TYPE II, UNCONTROLLED[ICD9: 250.02] Diagnosis: Actinic keratosis[ICD9: 702.0] Lita BARAKAT DO [facility] CPT-4: 08975 02/25/2015 ([id number]) OFFICE/OUTPATIENT VISIT EST Diagnosis: ASTHMA NOS[ICD9: 493.90] Diagnosis: COPD[ICD9: 496] Diagnosis: DM W/O COMPLICATION TYPE II, UNCONTROLLED[ICD9: 250.02] Lita BARAKAT [facility] CPT-4: 80113 10/27/2014 OFFICE/OUTPATIENT VISIT EST Diagnosis: DYSPNEA[ICD9: 786.09] Diagnosis: COPD[ICD9: 496] Lita BARAKAT [facility] CPT- 4: 43058 10/06/2014 ([id number]) OFFICE/OUTPATIENT VISIT EST Diagnosis: PNEUMONIA, ORGANISM[ICD9: 486] Diagnosis: COPD[ICD9: 496] Diagnosis: DYSPNEA[ICD9: 786.09] Lita BARAKAT [facility] CPT-4: 90598 09/21/2014 OFFICE/OUTPATIENT VISIT EST Diagnosis: PNEUMONIA, ORGANISM[ICD9: 486] Diagnosis: DYSPNEA[ICD9: 786.09] Diagnosis: COUGH[ICD9: 786.2] Stephanie BARAKAT [facility] CPT-4: 49468 09/08/2014 OFFICE/OUTPATIENT VISIT EST Diagnosis: COPD with exacerbation[ICD9: 491.21] Diagnosis: COUGH[ICD9: 786.2] Diagnosis: DYSPNEA[ICD9: 786.09] Stephanie EspinozaAshleyisabella BARAKAT DO [facility] CPT-4: 33310 09/02/2014 ([id number]) OFFICE/OUTPATIENT VISIT EST Diagnosis: DM W/O COMPLICATION TYPE II, UNCONTROLLED[ICD9: 250.02] Lita BARAKAT DO [facility] CPT-4: 93742 08/27/2014 ([id number]) OFFICE/OUTPATIENT VISIT EST Diagnosis: DM W/O COMPLICATION TYPE II, UNCONTROLLED[ICD9: 250.02] Diagnosis: HYPERLIPIDEMIA NEC/NOS[ICD9: 272.4] Diagnosis: HYPERTENSION[ICD9: 401.9] Diagnosis: COPD[ICD9: 496] Diagnosis: FLU VACCINE[ICD10: Z23] Lita PABLO [facility] CPT-4: 83598 08/05/2014 ([id number]) OFFICE/OUTPATIENT VISIT EST Diagnosis: COPD[ICD9: 496] Diagnosis: Lumbar degenerative disc disease[ICD9: 722.52] Lita BARAKAT [facility] CPT-4: 00341 05/05/2014 OFFICE/OUTPATIENT VISIT EST Diagnosis: DYSPNEA[ICD9: 786.09] Diagnosis: COPD[ICD9: 496] Lita [facility] CPT- [facility]: 99574 03/24/2014 ([id number]) OFFICE/OUTPATIENT VISIT EST Diagnosis: COPD[ICD9: 496] Diagnosis: DYSPNEA[ICD9: 786.09] [facility] CPT-[facility]: 85441 03/10/2014 OFFICE/OUTPATIENT VISIT EST Diagnosis: Subacromial bursitis[ICD9: 726.19] Diagnosis: Chronic low back pain[ICD9: 724.2] Diagnosis: Lumbar degenerative disc disease[ICD9: 722.52] [facility]ita [facility] CPT-[facility]: 44065 12/16/2013 ([id number]) OFFICE/OUTPATIENT VISIT EST Diagnosis: PHARYNGITIS, ACUTE[ICD9: 462] Diagnosis: COPD[ICD9: 496] Lita BARAKAT [facility] CPT- 4: 14352 10/09/2013 OFFICE/OUTPATIENT VISIT EST Diagnosis: COPD[ICD9: 496] Diagnosis: Acute exacerbation of chronic obstructive pulmonary disease (COPD)[ICD9: 491.21] Ruchi Buchanan [facility]ITA [facility] CPT-[facility]: 38899 09/18/2013 ([id number]) OFFICE/OUTPATIENT VISIT EST Diagnosis: PNEUMONIA, ORGANISM[ICD9: 486] Diagnosis: DM W/O COMPLICATION TYPE II[ICD9: 250.00] Lita [facility]: 87739 08/13/2013 ([id number]) OFFICE/OUTPATIENT VISIT EST Diagnosis: DM W/O COMPLICATION TYPE II, UNCONTROLLED[ICD9: 250.02] Diagnosis: HYPERLIPIDEMIA NEC/NOS[ICD9: 272.4] Diagnosis: HYPERTENSION[ICD9: 401.9] Diagnosis: DYSPNEA[ICD9: 786.09] Diagnosis: Family history of CABG[ICD9: V17.49] Lita [facility]PT[facility]: 13579 07/16/2013 ([id number]) OFFICE/OUTPATIENT VISIT EST Diagnosis: DM W/O COMPLICATION TYPE II, UNCONTROLLED[ICD9: 250.02] Diagnosis: HYPERLIPIDEMIA NEC/NOS[ICD9: 272.4] Diagnosis: HYPERTENSION[ICD9: 401.9] Lita Ramirez [facility] CPT-4: 66502 06/25/2013 OFFICE/OUTPATIENT VISIT EST Diagnosis: COUGH[ICD9: 786.2] Diagnosis: COPD[ICD9: 496] Kimberly [facility] CPT- 4: 66856 04/09/2013 ([id number]) OFFICE/OUTPATIENT VISIT EST Diagnosis: Muscle spasm[ICD9: 728.85] Diagnosis: ARTHRALGIA-MULTIPLE SITES[ICD9: 719.49] Lita [facility] CPT-[facility]: 66919 02/11/2013 OFFICE/OUTPATIENT VISIT EST Diagnosis: COPD with exacerbation[ICD9: 491.21] Diagnosis: BRONCHITIS, ACUTE[ICD9: 466.0] Ruchi Streeter [facility] CPT-[facility]: 43904 01/31/2013 OFFICE/OUTPATIENT VISIT EST Diagnosis: COUGH[ICD9: 786.2] Diagnosis: PHARYNGITIS, ACUTE[ICD9: 462] Diagnosis: SINUSITIS, ACUTE[ICD9: 461.9] Lita Ramirez [facility] CPT-[facility]: 02598 01/20/2013 OFFICE/OUTPATIENT VISIT EST Diagnosis: DIZZINESS/VERTIGO[ICD9: 780.4] Lita BARAKAT [facility] CPT-4: 05995 12/19/2012 OFFICE/OUTPATIENT VISIT EST Diagnosis: Skin lesion of left arm[ICD9: 709.9] Diagnosis: Otitis externa[ICD9: 380.10] Diagnosis: PHARYNGITIS, ACUTE[ICD9: 462] Lita BARAKAT [facility] CPT-4: 23671 10/21/2012 ([id number]) OFFICE/OUTPATIENT VISIT EST Diagnosis: DM W/O COMPLICATION TYPE II, UNCONTROLLED[ICD9: 250.02] Diagnosis: HYPERLIPIDEMIA NEC/NOS[ICD9: 272.4] Diagnosis: HYPERTENSION[ICD9: 401.9] Lita AREVALO [facility] CPT-4: 96792 09/19/2012 ([id number]) OFFICE/OUTPATIENT VISIT EST Diagnosis: DM W/O COMPLICATION TYPE II, UNCONTROLLED[ICD9: 250.02] Diagnosis: HYPERLIPIDEMIA NEC/NOS[ICD9: 272.4] Diagnosis: COPD[ICD9: 496] Lita BARAKAT [facility] CPT- 4: 99188 09/18/2012 ([id number]) OFFICE/OUTPATIENT VISIT EST Diagnosis: BRONCHITIS, ACUTE[ICD9: 466.0] Diagnosis: SINUSITIS, ACUTE[ICD9: 461.9] Lita BARAKAT [facility] CPT-4: 87368 08/28/2012 ([id number]) OFFICE/OUTPATIENT VISIT EST Diagnosis: COPD[ICD9: 496] Diagnosis: DYSPNEA[ICD9: 786.09] Diagnosis: VAC STREP PNEUMONIAE-FLU (Medicare)[ICD9: V06.6] Lita BARAKAT [facility] CPT-4: 10108 07/10/2012 ([id number]) OFFICE/OUTPATIENT VISIT EST Diagnosis: DM W/O COMPLICATION TYPE II, UNCONTROLLED[ICD9: 250.02] Diagnosis: HYPERTENSION[ICD9: 401.9] Diagnosis: HYPERLIPIDEMIA NEC/NOS[ICD9: 272.4] Diagnosis: DIZZINESS/VERTIGO[ICD9: 780.4] Lita BARAKAT [facility] CPT-4: 91608 05/09/2012 ([id number]) OFFICE/OUTPATIENT VISIT EST Diagnosis: DM W/O COMPLICATION TYPE II, UNCONTROLLED[ICD9: 250.02] Diagnosis: HYPERLIPIDEMIA NEC/NOS[ICD9: 272.4] Diagnosis: HYPERTENSION[ICD9: 401.9] Diagnosis: MALAISE AND FATIGUE[ICD9: 780.79] Lita Barakat RUSSEL ManFerdinand JASMINNDER DO [facility] CPT-4: 82644 05/06/2012 OFFICE/OUTPATIENT VISIT EST Diagnosis: COUGH[ICD9: 786.2] Diagnosis: SINUSITIS, ACUTE[ICD9: 461.9] Diagnosis: PHARYNGITIS, ACUTE[ICD9: 462] Lita Jasminjosefbrii ALYLITA Ashley CASTELLANOSNDER DO [facility] CPT-4: 87571 10/02/2011 OFFICE/OUTPATIENT VISIT EST Diagnosis: DM W/O COMPLICATION TYPE II, UNCONTROLLED[ICD9: 250.02] Diagnosis: HYPERLIPIDEMIA NEC/NOS[ICD9: 272.4] Diagnosis: HYPERTENSION[ICD9: 401.9] Diagnosis: COPD[ICD9: 496] Lita Jasminbetty LITA S. ORENDER DO [employer] CPT- 4: 15905 08/07/2011 OFFICE/OUTPATIENT VISIT EST Lita Funezbrii [facility] CPT- 4: 60986 04/03/2011 ([id number]) OFFICE/OUTPATIENT VISIT EST Lita Funezbrii [facility] CPT-4: 31793 01/18/2011 ([id number]) OFFICE/OUTPATIENT VISIT EST Lita Funezbrii EKATERINA SUZANNE [facility] CPT-4: 64043 12/19/2010 ([id number]) OFFICE/OUTPATIENT VISIT, EST Lita HERRMANN RAJESHJESSICA [facility] CPT-4: 45986 04/05/2010 ([id number]) OFFICE/OUTPATIENT VISIT, EST Lita HERRMANN [facility]JESHJESSICA [facility] CPT-4: 50567 01/13/2010 ([id number]) OFFICE/OUTPATIENT VISIT, EST Lita HOLMAN [facility] CPT-4: 39214 12/23/2009 ([id number]) OFFICE/OUTPATIENT VISIT, SUZANNE BARAKAT DO [employer] CPT-4: 81860 12/22/2009 ([id number]) OFFICE/OUTPATIENT VISIT, SUZANNE BARAKAT DO [employer] CPT-4: 28545 12/13/2009 Plan of Care Planned Activity Notes Codes Status Date Visit Diagnosis Plan: Chronic obstructive pulmonary di sease, unspecified Discussion: Add Daliresp 250mcg daily Fwup 4 weeks ICD-9 : 496 ICD-10 : J44.9 03/04/2020 Appointment: Lita Barakat WPtel: [phone] [facility] US FOLLOW UP 03/04/2020 Visit Diagnosis Plan: [...] : J44.9 02/04/2020 Appointment: Lita Barakat WPtel: [address] [place], [place] [phone] US MEDICATION REVIEW 02/04/2020 Visit Diagnosis Plan: Chronic obstructiv e pulmonary disease with (acute) exacerbation Discussion: Solumedrol 125mg IM Continue SVNs every 4hrs Prednisone for 1 week COVID-19 precautions ICD-9 : 491.21 ICD-10 : J44.1 12/25/2019 Appointment: Lita Barakat WPtel: [phone] [facility] US FOLLOW UP 12/25/2019 Patient Education: prednisone- [employer] C[employer] [id number] https://www.[employer] fusion.Vupen/samplemd/resources/getResource/61/[email or web address]-059z-21 Completed 12/25/2019 Visit Diagnosis Plan: Noncompliance with [...] : M25.561 12/22/2019 Appointment: Lita Barakat WPtel: [address] [place], [place] [id number] TELEMEDICINE 12/22/2019 Patient Education: baclofen- [employer] Coupon [id number] https://www.[employer] fusion.Vupen/sampleSaut Media/resources/getResource/61/xh8jx127-czk4-0df1-34 Completed 12/22/2019 Visit Diagnosis Plan: Chronic respiratory [...] : C44.310 11/12/2019 Appointment: Lita Barakat WPtel: [address] [place], [place] [id number] ACUTE ILLNESS 11/12/2019 Care Plan: Referral Order SNOMED-CT : 30 [id number] Pending 11/12/2019 Care Plan: Referral Order SNOMED-CT : 30 [id number] Pending 11/12/2019 Visit Diagnosis Plan: Right thyroid nodule Discussion: Check thyroid US ICD-9 : 241.0 ICD-10 : E04.1 09/11/2019 Visit Diagnosis Plan: Chronic obstructive pulmonary di sease, unspecified Discussion: Start Pulmonary Rehab Reviewed results of CT of chest ordered by pulmonology Follow Up: 3 months ICD-9 : 496 ICD-10 : J44.9 09/11/2019 Appointment: Lita Barakat WPtel: [address] [place] [address] MEDICATION REVIEW 09/11/2019 Care Plan: US EXAM OF HEAD AND NECK LOIN C : 37380-8 Pending 09/11/2019 Visit Diagnosis Plan: Chronic bronchitis Discussion: A ugmentin for 10 days ICD-9 : 491.9 ICD-10 : J42 08/07/2019 Appointment: Lita Barakat WPtel: [facility] [address] ACUTE ILLNESS 08/07/2019 Visit Diagnosis Plan: [...] him that overuse of symbicort can cause care home damage and the albuterol is to be used every 4 hours as needed. call office later this week with worsening or no improvement ICD-9 : 491.21 ICD-10 : J44.1 07/14/2019 Appointment: Autumn Oneil [address] [place] [address] ACUTE ILLNESS 07/14/2019 Visit Diagnosis Plan: Dyspepsia [...] : F51.01 07/01/2019 Appointment: Lita Barakat WPtel: [address] [place], [place] [phone] US FOLLOW UP 07/01/2019 Care Plan: CT ABDOMEN W/O DYE LOINC : 36 103-0 Pending 07/01/2019 Care Plan: Referral Order SNOMED-CT : 30 [id number] Pending 07/01/2019 Visit Diagnosis Plan: Weight loss [...] : R10.13 06/24/2019 Appointment: Lita Barakat WPtel: [address] [place], [place] [id number] [place] ACUTE ILLNESS 06/24/2019 Patient Education: Seroquel- [employer] Coupon [id number] https://www.[employer]icent/samplemd/resources/getResource/61/[email or web address] Completed 06/24/2019 Patient Education: ondansetron HCl- [employer] Coupon [id number] https://www.[employer].Vupen/samplemd/resources/getResource/61/3809843l-7397-14n9-i0 Completed 06/24/2019 Care Plan: US EXAM ABDOM COMPLETE LOINC : 62883-2 Pending 06/24/2019 Visit Diagnosis Plan: Chronic insomnia [...] : H53.2 06/17/2019 Appointment: Lita Barakat WPtel: [address] [place] [address] [place] FOLLOW UP 06/17/2019 Appointment: Lita Barakat WPtel: [address] [place] [address] [place] INJECTION 06/10/2019 Appointment: Lita Barakat WPtel: [address] [place] [address] [place] INJECTION 06/02/2019 Appointment: Lita Barakat WPtel: [address] [place] [address] [place] INJECTION 05/27/2019 Appointment: Lita Barakat WPtel: [address] [place] [address] [place] INJECTION 05/12/2019 Visit Diagnosis Plan: Anemia, [...] : E55.9 05/08/2019 Appointment: Lita Barakat WPtel: [address] [place], [place] [phone] FOLLOW UP 05/08/2019 Visit Diagnosis Plan: Pain in right knee Discussion: S top tramadol and tylenol q HS Trial of Hydrocodone 10/325mg po q HS Recheck 1month ICD-9 : 719.46 ICD-10 : M25.561 04/07/2019 Appointment: Lita Barakat WPtel: [address] [place], [place] [id number] Hospital Follow Up 04/07/2019 Visit Diagnosis Plan: [...] ICD-10 : F41.1 03/24/2019 Appointment: Autumn Oneil [address] [place], [place] [id number] ACUTE ILLNESS 03/24/2019 Patient Education: hydroxyzine HCl- [employer] Coupon [id number] Completed 03/24/2019 Patient Education: pantoprazole- [employer] Coupon [id number] Completed 03/24/2019 Visit Diagnosis Plan: Chronic obstructiv e pulmonary disease with (acute) exacerbation Discussion: 90 mg solumedrol given in of fice. patient's portable oxygen tank was empty. [id number] patient on importance of monitoring oxygen tank [...] ICD-10 : R42 03/21/2019 Appointment: Autumn Oneil [address] [place] [address] ACUTE ILLNESS 03/21/2019 Patient Education: ipratropium-albuterol- OptimizeRX C taj [id number] https://www.Med fusion.Vupen/samplemd/resources/getResource/61/l2hy26l5-z1p8-1i7m-86 Completed 03/21/2019 Visit Diagnosis Plan: Chronic obstructiv e pulmonary disease with (acute) exacerbation Discussion: Solumedrol now Use SVNs with duoneb at least q4hrs Patient is supposed to be on continuous oxygen but not wearing ICD-9 : 491.21 ICD-10 : J44.1 03/13/2019 Visit Diagnosis Plan: Candidal stomatitis Discussion: Diflucan and Nystatin susp ICD-9 : 112.0 ICD-10 : B37.0 03/13/2019 Appointment: Lita Barakat WPtel: [address] [facility]6676[facility] ACUTE ILLNESS 03/13/2019 Patient Education: losartan- OptimizeRX Coupon [id number] Completed 03/13/2019 Patient Education: nystatin- OptimizeRX Coupon [id number] Completed 03/13/2019 Patient Education: fluconazole- OptimizeRX Coupon [id number] Completed 03/13/2019 Visit Diagnosis Plan: Chronic obstructiv [...] : G25.81 03/10/2019 Appointment: Lita Barakat WPtel: [address] [place], [place] [phone] ACUTE ILLNESS 03/10/2019 Visit Diagnosis Plan: Restless legs syndrome Discussio n: Stop requip Increase sinemet to TID Add children's chewable MV with iron BID Add magnesium oxide 400mg daily Add Lyrica 75mg po q HS Stop trazadone Recheck 3 weeks Follow Up: 3 weeks ICD-9 : 333.94 ICD-10 : G25.81 02/26/2019 Appointment: Lita Barakat WPtel: [address] [place], [place] [phone] ACUTE ILLNESS 02/26/2019 Visit Diagnosis Plan: Primary insomnia Discussion: Tri al of doxepin 10-20mg po q HS prn sleep ICD-9 : 780.52 ICD-10 : F51.01 02/13/2019 Visit Diagnosis Plan: Chronic obstructive pulmonary di sease, unspecified Discussion: Stable Discussed trip to [place]--will get oxygen setup through [facility] ICD-9 : 496 ICD-10 : J44.9 02/13/2019 Appointment: Lita Barakat WPtel: [address] [place], [place] [phone] FOLLOW UP 02/13/2019 Patient Education: doxepin- OptimizeRX Coupon [id number] https://www.Med fusion.Vupen/Ecomsualmd/resources/getResource/61/11n7r41q-39dj-354x-1x Completed 02/13/2019 Appointment: Lita Barakat: [address] [place] [address] [place] CANCELED 01/20/2019 Visit Diagnosis Plan: Chronic obstructive pulmonary di sease, unspecified Discussion: Stable on oxygen Given Symbicort samples Follow Up: 1 months ICD-9 : 496 ICD-10 : J44.9 01/14/2019 Appointment: Lita Barakat WPtel: [address] [place] [address] Follow Up 01/14/2019 Visit Diagnosis Plan: Chronic [...] : J96.11 12/25/2018 Appointment: Lita Barakat WPtel: [address] [place] [address] Follow Up 12/25/2018 Appointment: Lita Barakat WPtel: [address] [place] [address] US CANCELED 12/23/2018 Appointment: Ines Banerjee [facility] [place] [place] [address] [place] CANCELED 12/20/2018 Visit Diagnosis Plan: Acute [...] ICD-10 : I10 12/09/2018 Appointment: Ines Banerjee [facility] [place] [address] LAB 12/09/2018 Patient Education: cefdinir- OptimizeRX Coupon [id number] https://www.Aicent/sampleSaut Media/resources/getResource/61/l1217u5w-91bh-9502-27 Completed 12/09/2018 Visit Diagnosis Plan: Candidal stomatitis Discussion: Diflucan for 5 days Hold atorvastatin while taking ICD-9 : 112.0 ICD-10 : B37.0 12/05/2018 Appointment: Lita Barakat WPtel: [address] [place] [address] ACUTE ILLNESS 12/05/2018 Patient Education: fluconazole- OptimizeRX Coupon [id number] https://www.Aicent/Med fusion/resources/getResource/61/8i494n85-9yu7-08o4-99 Completed 12/05/2018 Appointment: Lita Barakat WPtel: [address] [place] [address] NO SHOW 11/11/2018 Visit Plan: Saline nasal [...] : J01.91 10/23/2018 Appointment: Lita Barakat WPtel: [address] [place] [address] ACUTE ILLNESS 10/23/2018 Patient Education: prednisone- OptimizeRX Coupon [id number] https://www.Med fusion.Vupen/samplemd/resources/getResource/61/hx0fd946-dfym-3058-20 Completed 10/23/2018 Care Plan: A1C HPLC LOINC : 97487-0 Pending 09/10/2018 Care Plan: COMPREHEN METABOLIC PANEL [place] NC : 11422-4 Pending 09/10/2018 Care Plan: CBC Pending 09/10/2018 [...] : G25.81 08/21/2018 Appointment: Lita Barakat WPtel: [address] [place] [address] ACUTE ILLNESS 08/21/2018 Care Plan: Referral Order SNOMED-CT : 30 8649229 Pending 08/21/2018 Visit Diagnosis Plan: Chronic obstructiv [...] : G25.81 08/07/2018 Appointment: Lita Barakat WPtel: [address] [place] [address] FOLLOW UP 08/07/2018 Appointment: Lita Barakat WPtel: [address] [place] [address] 07/18/18 1210---see note in chart (km) CANCELED 07/18/2018 Visit Diagnosis Plan: Chronic obstructiv e pulmonary disease with acute lower respiratory infection Discussion: Solumedrol 125mg IM Change t o trelagy 1 inhalation daily Use SVNs with albuterol q4hrs To ER this weekend if worsens Monitor weight/swelling ICD-9 : 496 ICD-10 : J44.0 05/23/2018 Appointment: [facility] [facility] 05/23/2018 Patient Education: Patient Medication Summary Completed 05/23/2018 Visit Diagnosis Plan: Candidal stomatitis Discussion: Diflucan for 7 more days--hold atrovastatin while taking ICD-9 : 112.0 ICD-10 : B37.0 05/02/2018 Appointment: [facility]el[facility] [facility] 05/02/2018 Patient Education: Patient Medication [...] ICD-10 : J44.0 04/29/2018 Appointment: Autumn Oneil [address] [place], [place] [address] ACUTE ILLNESS 04/29/2018 Patient Education: Patient Medication [...] : J44.0 04/22/2018 Appointment: Lita Barakat WPtel: [address] [place] [phone] Hospital Follow Up 04/22/2018 Patient Education: Patient Medication Summary Completed 04/22/2018 Appointment: Lita Barakat WPtel: [address] [place] [phone] 04/09/18 1640---see message in chart from today [...] : M17.11 01/28/2018 Appointment: Lita Barakat WPtel: [address] [place] [address] ACUTE ILLNESS 01/28/2018 Patient Education: Patient Medication Summary Completed 01/28/2018 Care Plan: Referral Order SNOMED-CT : 30 1543372 Pending 01/28/2018 Care Plan: Referral Order SNOMED-CT : 30 9899737 Pending 01/28/2018 Visit Diagnosis Plan: Functional dyspepsia Discussion: Protonix Call in 1 week on how doing ICD-9 : 536.8 ICD-10 : K30 01/23/2018 Visit Diagnosis Plan: Pain in right knee Discussion: T opitoshia voltaren gel QID ICD-9 : 719.46 ICD-10 : M25.561 01/23/2018 Appointment: Lita Barakat WPtel: [address] [place] [address] ACUTE ILLNESS 01/23/2018 Patient Education: Patient Medication [...] : N39.0 01/02/2018 Appointment: Lita Barakat WPtel: [address] [place] [address] ACUTE ILLNESS 01/02/2018 Patient Education: Patient Medication [...] ICD-10 : J44.1 12/28/2017 Appointment: Autumn Oneil [address] [place], [place] [address] Consult 12/28/2017 Patient Education: Patient Medication Summary [...] ICD-10 : J20.9 12/21/2017 Appointment: Autumn Oneil [address] [place], [place] [address] ACUTE ILLNESS 12/21/2017 Patient Education: Patient Medication Summary Completed 12/21/2017 Care Plan: X-RAY EXAM OF KNEE 1 OR 2 right [place] NC : 74968-9 Pending 12/18/2017 Visit Diagnosis Plan: Pain in [...] : J44.0 12/17/2017 Appointment: Autumn Oneil [address] [facility]66[facility] ACUTE ILLNESS 12/17/2017 Patient Education: Patient Medication Summary Completed 12/17/2017 Visit Diagnosis Plan: Unilateral primary osteoarthriti s, right knee Discussion: Right knee injection as above Warned of elevated BS after injection ICD-9 : 715.96 ICD-10 : M17.11 12/11/2017 Appointment: Lita Barakat WPtel: [address] [place] [address] OFFICE SURGERY 12/11/2017 Patient Education: Patient Medication Summary Completed 12/11/2017 Visit Diagnosis Plan: Actinic keratosis Discussion: Cr yotherapy as above If persists then will need excision by Dr. Swanson ICD-9 : 702.0 ICD-10 : L57.0 11/07/2017 Appointment: Lita Barakat WPtel: [address] [place] [address] ACUTE ILLNESS 11/07/2017 Patient Education: Patient Medication [...] : S61.411S 10/17/2017 Appointment: Lita Barakat WPtel: [address] [place] [address] ER Follow UP 10/17/2017 Patient Education: Patient Medication Summary Completed 10/17/2017 Appointment: Lita Barakat WPtel: [address] [place], [place] [phone] [place] Consult 08/15/2017 Visit Diagnosis Plan: Chronic [...] ICD-10 : J44.0 08/02/2017 Appointment: Autumn Oneil [address] [place] [address] ACUTE ILLNESS 08/02/2017 Patient Education: Patient Medication Summary Completed 08/02/2017 Patient Education: Patient Medication Summary Completed 07/31/2017 Care Plan: CHEST X-RAY 2VW FRONTAL&LATL LOINC : 88123-8 Pending 07/31/2017 Appointment: Lita Barakat WPtel: [address] [place] [address] INJECTION 07/24/2017 Patient Education: Patient Medication Summary [...] ICD-10 : J44.1 07/02/2017 Appointment: Autumn Oneil [address] [place] [address] ACUTE ILLNESS 07/02/2017 Patient Education: Patient Medication Summary Completed 07/02/2017 Care Plan: CHEST X-RAY 2VW FRONTAL&LATL LOINC : 50072-6 Pending 07/02/2017 Care Plan: MRI LUMBAR SPINE W/O DYE LOIN C : 87112-0 Pending 05/30/2017 Visit Plan: MRI at [facility] Lando codone 5.325 1 po q 4-6 hours prn pain #40 NR and Cyclobenzaprine (ERx) Continue warm packs for pain RTC if no improvement 05/29/2017 Appointment: Ruchi Buchanan WPtel: [address] ACUTE ILLNESS 05/29/2017 Patient Education: Patient Medication Summary Completed 05/29/2017 Appointment: Lita Barakat WPtel: [address] [place] [address] CANCELED 05/24/2017 Patient Education: Patient Medication Summary Completed 05/22/2017 Care Plan: X-RAY EXAM L-S SPINE 2/3 VWS LOINC : 95258-6 Pending 05/22/2017 Appointment: Lita Barakat WPtel: [address] [place] [address] [place] LAB 04/17/2017 Patient Education: Patient Medication Summary Completed 04/17/2017 Referral: Demetrius Benjamin WPtel: [address] [place] [address] Referral Initiated 04/05/2017 Appointment: Lita Barakat WPtel: [address] [place] [address] 03/30/17 0930---spoke with patient about ointments (km Consult 03/30/2017 Appointment: Lita Barakat WPtel: [address] [place] [address] 03/29/17 1320---spoke with patient, requip refilled wasn't received at pharmacy so verbally called (km) Consult 03/29/2017 Patient Education: Patient Medication Summary Completed 03/01/2017 Care Plan: CHEST X-RAY 2VW FRONTAL&LATL LOINC : 55388-6 Pending 03/01/2017 Visit Diagnosis Plan: Bursitis of left shoulder Discus yesi: Injection as above ICD-9 : 726.10 ICD-10 : M75.52 02/01/2017 Appointment: Lita Barakat WPtel: [address] [place] [address] 01/31 confirmed ~sl WORK IN 02/01/2017 Patient Education: Patient Medication Summary Completed 02/01/2017 Care Plan: X-RAY EXAM OF SHOULDER LOINC : 31703-2 Pending 01/30/2017 Visit Plan: May take OTC Tylenol/Ibuprof en as directed XRay at [facility] of left shoulder Tramadol 50mg 1 po q 6 hours prn pain called to [facility]. Sedation warning given (no driving, etc) RTC if no improvement 01/29/2017 Appointment: Ruchi Buchanan WPtel: [address] [place] [address] ACUTE ILLNESS 01/29/2017 Appointment: Ruchi Buchanan WPtel: [address] [place], [place] [address] ACUTE ILLNESS 01/29/2017 Patient Education: Patient Medication Summary Completed 01/29/2017 Appointment: Lita Barakat WPtel: [address] [place], [place] [phone] [place] Consult 01/10/2017 Appointment: Lita Barakat WPtel: [address] [place] [address] 12/27/2016 Patient Education: Patient Medication Summary Completed [...] : R53.83 12/21/2016 Appointment: Lita Barakat WPtel: [address] [place] [address] ACUTE ILLNESS 12/21/2016 Patient Education: Patient Medication Summary Completed 12/21/2016 Appointment: Lita Barakat WPtel: [address] [place] [phone] CANCELED 12/18/2016 Visit Diagnosis Plan: Restless legs [...] : D64.9 12/14/2016 Appointment: Lita Barakat WPtel: [address] [place], [place] [phone] [place] 12/13 confirmed ~sl WORK IN 12/14/2016 Appointment: Lita Barakat WPtel: [address] [place] [phone] [place] CANCELED 12/14/2016 Patient Education: Patient Medication Summary Completed 12/14/2016 Appointment: Lita Barakattel: [address] [place] [phone] [place] LAB 12/12/2016 Patient Education: Patient Medication Summary Completed 12/12/2016 Appointment: Lita Barakattel: [address] [place] [phone] in ER this --called for reports Consult 12/11/2016 Appointment: Lita Barakat WPtel: [address] [place] [phone] [place] CANCELED 12/04/2016 Visit Diagnosis Plan: Pneumonia, [...] ICD-10 : G25.81 11/14/2016 Appointment: Magda Toth [address] [place] [address] MEDICATION REVIEW 11/14/2016 Patient Education: Patient Medication Summary Completed 11/14/2016 Appointment: Lita Barakat WPtel: [address] [place] [address] US RESCHEDULED 11/02/2016 Visit Diagnosis Plan: Candidal stomatitis Discussion: Diflucan and Nystatin Hold atorvastatin while taking diflucan ICD-9 : 112.0 ICD-10 : B37.0 10/31/2016 Appointment: Lita Barakat WPtel: [address] [place] [address] ACUTE ILLNESS 10/31/2016 Patient Education: Patient Medication Summary Completed 10/31/2016 Appointment: Lita Barakat WPtel: [address] [place] [address] [place] Consult 10/23/2016 Appointment: Lita Barakat WPtel: [address] [place] [address] US CANCELED 10/18/2016 Visit Plan: Rx as above Wear O2 at all t imes as instructed by Dr Chacon Continue breathing treatments Supportive care otherwise reviewed Follow up ingrid if not improving 10/03/2016 Appointment: Lita Barakat WPtel: [address] [place] [address] [place] CANCELED 10/03/2016 Appointment: Magda Toth [address] [place] [address] ACUTE ILLNESS 10/03/2016 Patient Education: Patient Medication Summary Completed 10/03/2016 Visit Plan: Titrate requip to 1.5mg x 1 week Call if not helpful and will increase to 2mg qHS NO MORE nyquil at bedtime - discussed potential effects of decongestants on heart, oversedating himself, etc Will increase requip, then amitriptyline if needed to desired effect 09/04/2016 Appointment: Magda Toth [address] [place] [address] ACUTE ILLNESS 09/04/2016 Patient Education: Patient Medication Summary Completed 09/04/2016 Visit Plan: Stop requip and try elavil C ryotherapy as above See ENT for removal of right ear lesion 08/22/2016 Appointment: Lita Barakat WPtel: [address] [place] [address] ACUTE ILLNESS 08/22/2016 Patient Education: Patient Medication Summary Completed 08/22/2016 Visit Plan: Trial of requip 1mg q HS Res tart zoloft Recheck 1month 08/10/2016 Appointment: Lita Barakat WPtel: [address] [place] [address] ACUTE ILLNESS 08/10/2016 Patient Education: Patient Medication Summary Completed 08/10/2016 Visit Plan: Stop HCTZ Flagyl for diarrhe a Hydrate Discussed meds for restless legs Zofran prn Nausea 07/06/2016 Appointment: Lita Barakat WPtel: [address] [place] [address] 07/05 confirmed~ Hospital Follow Up 07/06/2016 Patient Education: Patient Medication Summary Completed 07/06/2016 Visit Plan: Reviewed with Dr Gasper saldaña his recent history, instructed him to go straight to the ER called to notify her so she can meet him there 06/22/2016 Appointment: Magda Toth [address] [place] [address] ACUTE ILLNESS 06/22/2016 Patient Education: Patient Medication Summary Completed 06/22/2016 Visit Plan: Continue current meds Prevna r 13 and High Dose Flu given 06/13/2016 Appointment: Lita Barakat WPtel: [address] [facility] 06/13 confirmed~sl WORK IN 06/13/2016 Patient Education: Patient Medication Summary Completed 06/13/2016 Appointment: Lita Barakat WPtel: [address] [facility] just went over current medications CANCELED 06/08/2016 Visit Plan: Reviewed POC with Dr Barakat Stat cbc, cmp, d dimer, troponin, bnp, ekg, cxr If any worsening of symptoms while awaiting results, patient instructed to go to ER or call 911 06/01/2016 Appointment: Magda Toth [facility]6[address] ACUTE ILLNESS 06/01/2016 Patient Education: Patient Medication Summary Completed 06/01/2016 Referral: José Miguel Swanson WPtel: [address] 04/[address] swanson's office, patient [...] eval and treatment 04/26/2016 Appointment: Magda Toth [address] [facility]6676[facility] ACUTE ILLNESS 04/26/2016 Patient Education: Patient Medication Summary Completed 04/26/2016 Care Plan: Referral Order SNOMED-CT : 30 9740113 Pending 04/26/2016 Visit Plan: Left ear flushed after conse nt with warm water with peroxide with ear syringe Patient tolerated well Ear exam is wnl following flushing Follow up PRN 04/05/2016 Appointment: Magda Toth [address] [place] [id number] ACUTE ILLNESS 04/05/2016 Patient Education: Patient Medication Summary Completed 04/05/2016 Visit Plan: Increase Levemir to 25u sc d aily Increase sertraline to 2 full tablets daily--200mg Debrox or cerumenex to bilateral ears q HS for 3 nights then flush or fwup for fushing Check lab in 2mos then fwup 04/03/2016 Appointment: Lita Barakat WPtel: [address] [place], [place] [phone] 03/31 03/31 lm ~sl FOLLOW UP 04/03/2016 Patient Education: Patient Medication Summary Completed 04/03/2016 Visit Plan: Patient informed of correct dosage of levemir and how to administer. Patient verbalizes understanding and will call if any questions/concerns. 10 Units of Levemir given in office SC to right lower abdom en. Patient tolerated well. Site without redness/irritation. 03/13/2016 Appointment: Lita Barakat WPtel: [address] [place], [place] [phone] SPECIAL 03/13/2016 Patient Education: Patient Medication Summary Completed 03/13/2016 Appointment: Lita Barakat WPtel: [address] [place] [phone] LAB 03/06/2016 Patient Education: Patient Medication Summary Completed 03/06/2016 Visit Plan: Patient saw Dr. Chacon this week and was given prednisone taper for COPD Continue current meds Accuchecks daily Patient will return on Sunday morning for fasting lab incuding CBC, CMP, TSH, free T4, HbA1C, Lipids, Testosterone, PSA 03/02/2016 Appointment: Lita Barakat WPtel: [address] [place], [place] [phone] 03/01 confirmed ~sl FOLLOW UP 03/02/2016 Patient [...] how doing 02/17/2016 Appointment: Lita Barakat WPtel: [address] [place] [phone] WORK IN 02/17/2016 Patient Education: Patient Medication Summary Completed 02/17/2016 Visit Plan: Xrays to further evaluate Alvarez spect heel spur(s) Will call with results Has had injections in the past that were helpful Dr Barakat can do them or can refer to podiatry if warranted 02/14/2016 Appointment: Magda Toth [address] [place] [address] ACUTE ILLNESS 02/14/2016 Patient Education: Patient Medication Summary Completed 02/14/2016 Visit Plan: Increase Zoloft to 150mg cooper ly 01/31/2016 Appointment: Lita Barakat WPtel: [address] [place] [address] 01/26 confirmed `sl FOLLOW UP 01/31/2016 Patient Education: Patient Medication Summary Completed 01/31/2016 Visit Plan: Decrease citalopram to 20mg q AM for 1 week then stop Start zoloft 50mg q HS for 1 week then increase to 100mg q HS 12/30/2015 Appointment: Lita Barakat WPtel: [address] [place], [place] [address] 12/28 confirmed~sl ACUTE ILLNESS 12/30/2015 Patient Education: Patient Medication Summary Completed 12/30/2015 Visit Plan: Check Neck US 12/16/2015 Appointment: Lita Barakat WPtel: [address] [place] [phone] 12/14 lm ~sl 12/15 confirmed-sp FOLLOW UP 12/16/2015 Patient Education: Patient Medication Summary Completed 12/16/2015 Care Plan: US EXAM OF HEAD AND NECK LOIN C : 73401-0 Ordered 12/16/2015 Appointment: Stephanie Rios WPtel: [address] [place] [address] [place] 12/09 confirmed-sp 12/12 lm ~sl Patient [...] PO TID 12/06/2015 Appointment: Stephanie Rios WPtel: [address] [place], [place] [address] ACUTE ILLNESS 12/06/2015 Patient Education: Patient Medication Summary Completed 12/06/2015 Referral: Lisbeth Darby WPtel: [facility] [address] 11/18/15 called luther at [facility] office and confirmed time and date of appointment with patient~sl Initiated 11/18/2015 Visit Plan: Referral to Dermatology for removal of facial skin lesions Cefdinir PO bid Topical Mupirocin to skin lesions bid 11/15/2015 Appointment: Stephanie Rios WPtel: [facility] ACUTE ILLNESS 11/15/2015 Patient Education: Patient Medication Summary Completed 11/15/2015 Visit Plan: Continue current meds Accuch ecks daily Fwup with ophthamology as scheduled Will check lab in 3mos then fwup due to recent meds that will affect blood sugar 10/05/2015 Appointment: Lita Barakat WPtel: [facility]7 [facility]6676[facility] 10/04/15 appt confirmed cn Annual Well Visit 08/2016 Patient Education: Patient Medication Summary Completed 10/05/2015 Visit Plan: Genetenta -1 sample box given Return visit in 6 weeks for fasting labs Notify for worsening symptoms such as Increased redness, swelling, pain or drainage of Rt. knee 07/22/2015 Appointment: Stephanie Rios WPtel: [address] [facility] 07/21 vm left cn FOLLOW UP 07/22/2015 Patient Education: Patient Medication Summary Completed 07/22/2015 Visit Plan: Continue to change dressing twice daily and apply Mupirocin Complete Doxycycline as directed. Follow-up for worsening symptoms, such as increased swelling, redness or pain. 07/01/2015 Appointment: Stephanie Rios WPtel: [address] [place], [place] [phone] FOLLOW UP 07/01/2015 Patient Education: Patient Medication Summary Completed 07/01/2015 Visit Plan: Pressure dressing applied to draining wound left knee. Instructed to change dressing twice daily and continue Mupirocin topical Doxycycline PO bid x 10 days Wound culture obtained. Wound tissue sent to pathology Follow-up in 3 days 06/28/2015 Appointment: Stephanie Rios WPtel: [address] [place], [place] [phone] ACUTE ILLNESS 06/28/2015 Patient Education: Patient Medication Summary Completed 06/28/2015 Visit Plan: Complete antibiotics Follow- up for increased tenderness, swelling or drainage. 06/09/2015 Appointment: Stephanie Rios WPtel: [address] [place], [place] [phone] 06/08/15 FOLLOW UP 06/09/2015 Patient Education: Patient Medication Summary Completed 06/09/2015 Visit Plan: Apply pressure dressing toda y Continue antibiotics and topical Mupirocin Follow-up in 2 days Bursa drained from open area using pressure--serosanguinous drainage 06/07/2015 Appointment: Stephanie Rios WPtel: [address] [place], [place] [phone] 06/04/15 confirmed with patient FOLLOW UP 0 06/07/2015 Patient Education: Patient Medication Summary Completed 06/07/2015 Visit Plan: Wound culture Lt. knee Apply mupirocin to open wound bid Clindamycin 600 mg PO bid x 10 days Follow-up on Sunday06/03/2015 Appointment: Stephanie Rios WPtel: [address] [place], [place] [phone] ACUTE ILLNESS 06/03/2015 Patient Education: Patient Medication Summary Completed 06/03/2015 Visit Plan: Accuchecks daily Check CMP, HbA1C today Patient is noncompliant with meds and diet but patient says he is doing everything he is supposed to do Wants to try performomist instead of albuterol in SVN 06/01/2015 Appointment: Lita Barakat WPtel: [address] [place], [place] [phone] 05/28 appt confirmed cn FOLLOW UP 06/01/20 15 Patient Education: Patient Medication Summary Completed 06/01/2015 Visit Plan: Change Breo Ellipta to Advai r 500/50 1 p BID this next month Continue turdoza Use albuterol prn Check CMP, HbA1C today Accuchecks daily Cryotherapy as above 02/25/2015 Appointment: Lita Barakat WPtel: [address] [place], [place] [phone] 02/24 appt confirmed and explained needed payment he said ok FOLLOW UP 02/25/2015 Patient Education: Patient Medication Summary Completed 02/25/2015 Referral: [facility] [address] [address] [facility] C&D [id number] US Will put patient on cancellation list Initiated 12/08/2014 Appointment: Lita Barakat WPtel: [address] [place], [place] [phone] [place] [address] Follow Up 10/29/2014 Visit Plan: Finish prednisone Continue S VNs with albuterol QID See pulmonology and start Pulmonary rehab Once again discussed taking it easy this winter--that he is high risk for exacerbation 10/27/2014 Appointment: Lita Barakat WPtel: [address] [place], [place] [phone] FOLLOW UP 10/27/2014 Patient Education: Patient Medication Summary Completed 10/27/2014 Appointment: Lita Barakat WPtel: [address] [place], [place] [phone] FOLLOW UP 10/26/2014 Appointment: Stephanie Rios WPtel: [address] [place], [place] [phone] WORK IN 10/21/2014 Patient Education: Patient Medication Summary Completed 10/21/2014 Patient Education: Patient Medication Summary Completed 10/19/2014 Visit Plan: Continue oxygen and SVNS wit h duoneb Increase farxiga to 10mg daily Diflucan 100mg daily for 1week 10/06/2014 Appointment: Lita Barakat WPtel: [address] [place], [place] [id number] Moved appt time to 2:45pm FOLLOW UP 2014 Patient Education: Patient Medication Summary Completed 10/06/2014 Visit Plan: Finish omnicef Continue Breo BID and Turdoza Use SVNS with duoneb at least TID for next 2weeks then go to prn 09/21/2014 Appointment: Lita Barakat WPtel: [address] [place], [place] [phone] [place] [address] Follow Up 09/21/2014 Patient Education: Patient Medication Summary Completed 09/21/2014 Patient Education: [facility] - Saving [employer] - Ventolin HFA - 18+ - Dynamic Portal ID Completed 09/21/2014 Appointment: Stephanie Rios WPtel: [address] [place] [address] Scheduled by 09/07 patient rescheduled to 09/08 with Stephanie. [facility] Follow Up 09/08/2014 Patient Education: Patient Medication Summary Completed 09/08/2014 Appointment: Stephanie Rios WPtel: [address] [place] [address] FOLLOW UP 09/02/2014 Patient Education: Patient Medication Summary Completed 09/02/2014 Patient Education: [employer] - Antibi otics, Analgesics 18+, Oral Contraceptives F 18+ Completed 09/02/2014 Appointment: Lita Barakat WPtel: [address] [place], [place] [phone] [facility] 08/27/2014 Patient Education: Patient Medication Summary Completed [...] prn sleep 08/10/2014 Appointment: Lita Barakat WPtel: [address] [place], [place] [phone] Annual Well Visit 08/10/2014 Patient Education: Patient Medication Summary Completed 08/10/2014 Appointment: Lita Barakat WPtel: [address] [place], [place] [phone] [place] LAB 08/05/2014 Patient Education: Patient Medication Summary Completed 08/05/2014 Visit Plan: ECHO results reviewed Contin ue Breo and Turdoza Pt starts PT this afternoon for back--has had one epidural with no help in pain 05/05/2014 Appointment: Lita Barakat WPtel: [address] [place], [place] [phone] FOLLOW UP 05/05/2014 Patient Education: Patient Medication Summary Completed 05/05/2014 Visit Plan: Continue Breo and Turdoza Camargo s heart tests scheduled next week Will see surgeon for removal of skin cancer to neck after done with cardiac workup 03/24/2014 Appointment: Lita Barakat WPtel: [address] [place], [place] [phone] FOLLOW UP 03/24/2014 Patient Education: Patient Medication Summary Completed 03/24/2014 Visit Plan: Proceed with cardiology eval uation as patient is has numerous risk factors for CAD Change Symbicort to Breo 1p BID and add Turdorza 1p BID Recheck in weeks Check 2-D ECHO and lexiscan 03/10/2014 Appointment: Lita Barakat WPtel: [address] [place], [place] [phone] FOLLOW UP 03/10/2014 Patient Education: Patient Medication Summary Completed 03/10/2014 Visit Plan: Shoulder injection as above Back brace to use when doing any lifting for stability 12/16/2013 Appointment: Lita Barakat WPtel: [address] [place], [place] [phone] ACUTE ILLNESS 12/16/2013 Patient Education: Patient Medication Summary Completed 12/16/2013 Visit Plan: Continue symbicort and Turdo za Salt water gargles Omnicef 300mg 2 po daily for 1wk Phenergan with codeine 10/09/2013 Appointment: Lita Barakat WPtel: [address] [place] [phone] WORK IN 10/09/2013 Patient Education: Patient Medication Summary Completed 10/09/2013 Appointment: Ruchi Buchanan WPtel: [address] [place] [address] ACUTE ILLNESS 09/18/2013 Patient Education: Patient Medication Summary Completed 09/18/2013 Visit Plan: Check on repeat CXR Finish a bx Start Tradjenta to replace metformin 08/13/2013 Appointment: Lita Barakat WPtel: [address] [place], [place] [address] 08/12 Hospital Follow Up 08/13/2013 Patient Education: Patient Medication Summary Completed 08/13/2013 Visit Plan: Admit to hospital 08/06/2013 Appointment: Stephanie Rios WPtel: [address] [place] [address] ACUTE ILLNESS 08/06/2013 Patient Education: Patient Medication Summary Completed 08/06/2013 Visit Plan: Continue current meds Contin ue accuchecks daily Proceed with stress test due to high risk for CAD 07/16/2013 Appointment: Lita Barakat WPtel: [address] [place], [place] [phone] FOLLOW UP 07/16/2013 Patient Education: Patient Medication Summary Completed 07/16/2013 Appointment: Lita Barakat WPtel: [address] [place], [place] [phone] LAB 06/25/2013 Patient Education: Patient Medication Summary Completed 06/25/2013 Visit Plan: prednisone and azithromycin. Doing CBC and mycoplasma blood draw. Will continue inhaler and albuterol breathing treatments. 04/09/2013 Appointment: Kimberly Villalba WPtel: [address] [place] [address] ACUTE ILLNESS 04/09/2013 Patient Education: Patient Medication Summary Completed 04/09/2013 Appointment: Lita Barakat WPtel: [address] [place] [address] ACUTE ILLNESS 02/11/2013 Patient Education: Patient Medication Summary Completed 02/11/2013 Appointment: Ruchi Buchanan WPtel: [address] [place] [address] ACUTE ILLNESS 01/31/2013 Patient Education: Patient Medication Summary Completed 01/31/2013 Visit Plan: Cefdinir and medrol dose pac k. Codeine/guiaf cough syrup. Has colonoscopy on Sunday. Pt. is to notify if fever occurs or symptoms worsen. Hydration and rest. 01/20/2013 Appointment: Kimberly Villalba WPtel: [address] [place] [address] ACUTE ILLNESS 01/20/2013 Patient Education: Patient Medication Summary Completed 01/20/2013 Visit Plan: Scopalamine patch and vestib ular exercises 12/19/2012 Appointment: Lita Barakat WPtel: [address] [place] [address] ACUTE ILLNESS 12/19/2012 Patient Education: Patient Medication Summary Completed 12/19/2012 Visit Plan: Dr. Swanson consult if no impr ovement in hearing. Pt. reports he will notify if no better in one week. Willam consult for skin lesion. 10/21/2012 Appointment: Kimberly Villalba WPtel: [address] [place] [address] ACUTE ILLNESS 10/21/2012 Patient Education: Patient Medication Summary Completed 10/21/2012 Appointment: Lita Barakat WPtel: [address] [place] [address] [place] LAB 09/19/2012 Patient Education: Patient Medication Summary Completed 09/19/2012 Visit Plan: Check fasting lab in AM--CMP , Lipids, HbA1C 09/18/2012 Appointment: Lita Barakat WPtel: [address] [place], [place] [phone] FOLLOW UP 09/18/2012 Patient Education: Patient Medication Summary Completed 09/18/2012 Appointment: Lita Barakattel: [address] [place] [address] appt time scheduled sooner FOLLOW UP 09/05 Visit Plan: Doxycycline and Prednisone I ncrease SVN to QID Add back Symbicort 160/4.5 2 p BID 08/28/2012 Appointment: Lita Barakat WPtel: [address] [place], [place] [id number] FOLLOW UP 08/28/2012 Patient Education: Patient Medication Summary Completed 08/28/2012 Appointment: Lita Barakattel: [address] [place] [address] Annual Well Visit 07/10/2012 Patient Education: Patient Medication Summary Completed 07/10/2012 Visit Plan: Finish Z-pack Add Nasonex Ad d Meclizine Vestibular exercises Continue current meds and accuchecks Check lab and fwup in 4mos 05/09/2012 Appointment: Lita Barakattel: [address] [place] [address] number no longer works FOLLOW UP 2 Patient Education: Patient Medication Summary Completed 05/09/2012 Appointment: Lita Barakattel: [address] [place], [place] [phone] [place] LAB 05/06/2012 Patient Education: Patient Medication Summary Completed 05/06/2012 Appointment: Lita Barakat WPtel: [address] [place] [phone] [place] LAB 05/02/2012 Appointment: Lita Barakat WPtel: [address] [place] [phone] [place] INJECTION 02/05/2012 Patient Education: Patient Medication Summary Completed 02/05/2012 Visit Plan: cefdinir. Will focus on rest and fluids. Pt. reports he is using breathing treatments as needed. Pt. will monitor for worsening symptoms or fever. 10/02/2011 Appointment: Kimberly Villalba WPtel: [address] [place], [place] [phone] ACUTE ILLNESS 10/02/2011 Patient Education: Patient Medication Summary Completed 10/02/2011 Appointment: Lita Barakat WPtel: [address] [place] [phone] [place] INJECTION 08/10/2011 Patient Education: Patient Medication Summary Completed 08/10/2011 Visit Plan: Continue current meds Restar t Advair Restart exercise Flu shot given 08/07/2011 Appointment: Lita Barakat WPtel: [address] [place] [address] FOLLOW UP 08/07/2011 Patient Education: Patient Medication Summary Completed 08/07/2011 Appointment: Lita Barakat WPtel: [address] [place] [address] LAB 07/26/2011 Patient Education: Patient Medication Summary Completed 07/26/2011 Visit Plan: ALEKSANDER Carmen Continue Metformin but change to BID Add Lantus 25u sc q PM BS readings in 1wk 04/03/2011 Appointment: Lita Barakat WPtel: [address] [place] [address] ACUTE ILLNESS 04/03/2011 Patient Education: Patient Medication Summary Completed 04/03/2011 Appointment: Lita Barakat WPtel: [address] [place] [phone] [place] INJECTION 01/19/2011 Patient Education: Patient Medication Summary Completed 01/19/2011 Appointment: Lita Barakat WPtel: [address] [place] [phone] ACUTE ILLNESS 01/18/2011 Patient Education: Patient Medication Summary Completed 01/18/2011 Appointment: Lita Barakat WPtel: [address] [place] [phone] [place] INJECTION 12/21/2010 Patient Education: Patient Medication Summary Completed 12/21/2010 Appointment: Lita Barakat WPtel: [address] [place] [phone] FOLLOW UP 12/19/2010 Patient Education: Patient Medication Summary Completed 12/19/2010 Appointment: Lita Barakat WPtel: [address] [place], [place] [id number] LAB 12/07/2010 Patient Education: Patient Medication Summary Completed 12/07/2010 Appointment: Kimberly Villalba WPtel: [address] [place] [address] ACUTE ILLNESS 04/05/2010 Patient Education: Patient Medication Summary Completed 04/05/2010 Appointment: Lita Barakat WPtel: [address] [place], [place] [address] WORK IN 03/14/2010 Patient Education: Patient Medication Summary Completed 03/14/2010 Appointment: Lita Barakat WPtel: [address] [place] [address] LAB 03/02/2010 Visit Plan: HbA1C in 3mos. Continue Accu checks BID alternating times. Switch lexapro to celexa 01/13/2010 Appointment: Lita Barakat WPtel: [address] [place], [place] [address] FOLLOW UP 01/13/2010 Patient Education: Patient Medication Summary Completed 01/13/2010 Appointment: Lita Barakat WPtel: [address] [place], [place] [address] [place] FOLLOW UP 01/11/2010 Visit Plan: Pt. will continue the Avalox and Doxycycline regimen as prescribed the previous day. He has been advised to continue inhalers, breathing treatments and oxygen therapy for at least the weekend. Moderate activity without strenuous exercise. The pt. will seek immediate re-eval if his symptoms worsen. 12/23/2009 Appointment: Kimberly Villalba WPtel: [address] [place], [place] [phone] FOLLOW UP 12/23/2009 Patient Education: Patient Medication [...] tomorrow morning. 12/22/2009 Appointment: Kimberly Villalba WPtel: [address] [place] [address] ACUTE ILLNESS 12/22/2009 Patient Education: Patient Medication Summary Completed 12/22/2009 Appointment: Kimberly Villalba WPtel: [address] [place] [address] FOLLOW UP 12/21/2009 Appointment: Lita Barakat WPtel: [address] [place] [phone] [place] INJECTION 12/16/2009 Patient Education: Patient Medication Summary Completed 12/16/2009 Appointment: Kimberly Villalba WPtel: [address] [place], [place] [phone] ACUTE ILLNESS 12/13/2009 Patient Education: Patient Medication Summary Completed 12/13/2009 Care Plan: X-RAY EXAM OF SHOULDER lt shoulder (pain ra diates across the shoulder) Hand carried orders to [facility] LOINC : 66509-0 Ordered 12/13/2009 Care Plan: X-RAY EXAM THORAC SPINE 2VWS Hand carried order LOINC : 81875-9 Ordered 12/13/2009 Care Plan: X-RAY EXAM RIBS UNI 2 VIEWS Posterior ribs of lt. side Pt. hand carries order to [facility] LOINC : 05285-2 Ordered 12/13/2009 Referral: José Miguel Swanson WPtel: [address] [address] [place] Referral Appointment Requested Referral: José Miguel Swanson WPtel: [address] [address] [place] Referral Appointment Requested Referral: Chandu Quarles WPtel: [address] Quarles for screening colonoscopy. P zabrina notified that [place] office will book appt with him Initiated Referral: Santosh Machado WPtel: [address] [facility] [place] [place] [address] [place] Referral Appointment Requested Referral: José Miguel Swanson WPtel: [address] [address] [place] Referral Initiated Referral: Lopez Chacon [address] [facility] C&D [address] Referral Initiated Referral: Demetrius Benjamin WPtel: [address] [place] [address] [place] Referral Appointment Requested Referral: José Miguel Swanson WPtel: [address] [address] [place] Referral Appointment Requested Referral: José Miguel Swanson WPtel: [address] [address] [place] Referral Initiated Instructions Comment . Saline nasal flushes prn. Tylenol/Motr in prn headache. Notify if persists/symptoms worsening. . MRI at [facility] Hydrocodone 5.325 1 po q [...]
[2020-03-28] MEDS ORDERED: RT-ALBUTEROL/IPRATROPIUM 3 ML (DUONEB) VIAL INH ONE (15:45)
[2020-03-28 15:47] LABS: ABG BASE EXCESS 4.6 MMOL/L (-2.5-2.5); ABG OXYGEN SATURATION 75 % (94-100); ABG PCO2 52 MMHG (35-45); ABG PH 7.38 (7.37-7.43); ABG PO2 46 MMHG (79-93); ABG TCO2 31.2 MMOL/L (21.0-31.0)
--- OUTSIDE RECORDS SUMMARY | 2020-03-28 15:47 | XMS REPORT | CCD ---
Author Author Leandro Barakat D.O. Organization [facility] Address [address] [place] [address] Phone Care Team Providers Care Scientist Engineer Name Role Phone Lita Barakat D.O., PP Unavailable CCM Unavailable Summary Purpose Interface Exchange Insurance Providers Payer name Policy type / Coverage type Covered green party ID Effective Begin Date Effective End Date [employer] MEDICARE Medicare Part B [id number] 2019 Unknown Family history Brother Diagnosis Age At Onset Cancer Unknown Father Diagnosis Age At Onset Heart disease Unknown Mother Diagnosis Age At Onset Heart disease Unknown Social History Social History Element Codes Description Effective Dates Tobacco history SNOMED CT: 5804771 Former smoker quit 15 years ago 08/07/2011 [...] R07.9 06/22/2016 Active 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: [...] unit/mL (3 mL) sub cutaneous pen RxNorm: 663550 INJECT 20 UNITS SQ QD 02/26/2020 03/21/2020 Active losartan 100 mg tablet RxNorm: 255656 1TD 02/03/2020 05/02/2020 Active Sinemet CR 50 mg-200 mg tablet,extended release RxNorm: 8343 41 1 Tablet(s) Oral three times a day 02/02/2020 07/31/2020 Active Generic For:*S INEMET CR 50/200 TABLET SA 07/08/2018 3:09:11 PM hydrocodone 10 mg-acetaminophen 325 mg tablet RxNorm: 135879 1 Tablet(s) Oral Q4H as needed for pain 01/29/2020 No Stop Date Active ipratropium 0.5 mg-albuterol 3 mg (2.5 mg base)/3 mL n ebulization soln RxNorm: 6756075 USE 1 VIAL IN NEBULIZER Q4H (THIS REPLACES ALBUTEROL S OLUTION) 01/08/2020 02/06/2020 Inactive prednisone 20 mg tablet RxNorm: 645034 1 Tablet(s) Oral two remy es a day 12/25/2019 01/01/2020 Inactive Levemir FlexTouch U-100 Insulin 100 unit/mL (3 mL) sub cutaneous pen RxNorm: 706916 10 Unit(s) Subcutaneous every night at bedtime 12/22/2019 N o Stop Date Active baclofen 10 mg tablet RxNorm: 276465 1 Tablet(s) Oral QPM for p ain/spasm 12/22/2019 01/21/2020 Inactive ipratropium 0.5 mg-albuterol 3 mg (2.5 mg base)/3 mL n ebulization soln RxNorm: 6687716 USE 1 VIAL IN NEBULIZER Q4H (THIS REPLACES ALBUTEROL S OLUTION) 11/27/2019 12/16/2019 Inactive hydrocodone 10 mg-acetaminophen 325 mg tablet RxNorm: 500467 1 Tablet(s) Oral Q4H as needed for pain 11/13/2019 01/28/2020 Inactive Seroquel 50 mg tablet RxNorm: 613421 1 Tablet(s) Oral QPM as ne eded for sleep 10/07/2019 12/21/2019 Inactive ropinirole 4 mg tablet RxNorm: 248785 3 TABLET(S) BY [facility] DAILY AT BEDTIME FOR RESTLESS LEGS 09/29/2019 12/27/2019 Inactive Generic For:REQU IP 4 MG TABLET 09/29/2019 7:52:42 AM N O T I C E Last quantity doesn't match original quantity ropinirole 4 mg tablet RxNorm: 871182 3 TABLET(S) BY [facility] DAILY AT BEDTIME FOR RESTLESS LEGS 09/26/2019 09/28/2019 Inactive Generic For:REQU IP 4 MG TABLET 09/26/2019 9:08:48 AM N O T I C E Last quantity doesn't match original quantity ipratropium 0.5 mg-albuterol 3 mg (2.5 mg base)/3 mL n ebulization soln RxNorm: 1613241 USE 1 VIAL IN NEBULIZER EVERY FOUR HOURS (THIS REPLACES ALBUTEROL SOLUTION) 09/26/2019 10/15/2019 Inactive Generic For:*DUO NEB 2.5-0.5 MG/3 ML SOLN 09/26/2019 9:08:53 AM hydrocodone 10 mg-acetaminophen 325 mg tablet RxNorm: 723071 1 Tablet(s) Oral Q4H as needed for pain 09/09/2019 09/09/2019 Inactive hydrocodone 10 mg-acetaminophen 325 mg tablet RxNorm: 793432 1 Tablet(s) Oral Q4H as needed for pain 09/09/2019 09/08/2019 Inactive ondansetron HCl 4 mg tablet RxNorm: 510555 1 Tablet(s) Oral QPM for nausea 08/12/2019 10/10/2019 Inactive ipratropium 0.5 mg-albuterol 3 mg (2.5 mg base)/3 mL n ebulization soln RxNorm: 1445322 1 Unit Dose INH Q4H 08/12/2019 09/25/2019 Inactive replaces albuterol solution Augmentin 875 mg-125 mg tablet RxNorm: 263026 1 Tablet(s) Oral two times a day 08/07/2019 08/17/2019 Inactive prednisone 20 mg tablet RxNorm: 858701 1 Tablet(s) Oral QD 08/05/2008/04/2019 Inactive prednisone 20 mg tablet RxNorm: 484753 1 Tablet(s) Oral QD 08/05/2008/06/2019 Inactive Levaquin 500 mg tablet RxNorm: 907143 1 Tablet(s) Oral QD Replaces azithromycin (z-pack) 07/31/2019 08/05/2019 Inactive Levaquin 500 mg tablet RxNorm: 263189 1 Tablet(s) Oral QD Replaces azithromycin (z-pack) 07/21/2019 07/26/2019 Inactive Levaquin 500 mg tablet RxNorm: 013856 1 Tablet(s) Oral QD Replaces azithromycin (z-pack) 07/21/2019 07/20/2019 Inactive Zithromax Z-Gui 250 mg tablet RxNorm: 220122 Tablet(s) Oral 019 07/22/2019 Inactive Zithromax Z-Gui 250 mg tablet RxNorm: 763212 Tablet(s) Oral 07/15/2019 Inactive Symbicort 160 mcg-4.5 mcg/actuation HFA aerosol inhaler RxNo rm: 4516259 2 Puff(s) Inhalation two times a day 07/14/2019 07/14/2019 Inactive Tessalon Perles 100 mg capsule RxNorm: 682960 1 Capsule(s) Oral Q8H as needed 07/14/2019 08/06/2019 Inactive Seroquel 50 mg tablet RxNorm: 649855 1 Tablet(s) Oral QPM as ne eded for sleep 07/01/2019 10/06/2019 Inactive ondansetron HCl 4 mg tablet RxNorm: 765597 1 Tablet(s) Oral QPM for nausea 06/24/2019 07/24/2019 Inactive Seroquel 25 mg tablet RxNorm: 014981 1 Tablet(s) Oral every nig ht at bedtime 06/19/2019 06/18/2019 Inactive Seroquel 25 mg tablet RxNorm: 835890 1 Tablet(s) Oral every nig ht at bedtime 06/19/2019 06/30/2019 Inactive trazodone 150 mg tablet RxNorm: 225708 1/2 Tablet(s) PO QHS as needed for sleep 06/11/2019 06/17/2019 Inactive replaces PA on doxep in trazodone 150 mg tablet RxNorm: 179669 1/2 Tablet(s) PO QHS as needed for sleep 05/12/2019 06/11/2019 Inactive replaces PA on doxep in Vitamin D3 5,000 unit tablet RxNorm: 089239 1 Tablet(s) PO QD 05/09 No Stop Date Active magnesium oxide 400 mg (241.3 mg magnesium) tablet RxNorm: 1 53700 1 Tablet(s) PO QHS 05/09/2019 No Stop Date Active cyanocobalamin (vit B-12) 1,000 mcg/mL injection solution Rx Norm: 532011 1 injection weekly for 4 weeks 1 Milliliter(s) Inj 05/09/2019 12/21/2019 Inactive ferrous sulfate 325 mg (65 mg iron) tablet RxNorm: 123151 1 Tab let(s) PO QD 05/09/2019 12/21/2019 Inactive ropinirole 4 mg tablet RxNorm: 874503 3 TABLET(S) BY [facility] DAILY AT BEDTIME FOR RESTLESS LEGS 03/26/2019 06/23/2019 Inactive Generic For:REQU IP 4 MG TABLET 03/26/2019 11:23:36 AM N O T I C E Last quantity doesn't match original quantity pantoprazole 40 mg tablet,delayed release RxNorm: 195443 Tablet(s) TAKE 1 TABLET BY MOUTH DAILY FOR STOMACH 03/24/2019 06/21/2019 Inactive Gener ic For:PROTONIX 40MG TAB EC 01/03/2019 1:23:44 PM hydroxyzine HCl 10 mg tablet RxNorm: 642844 1 Tablet(s) PO BID as needed 03/24/2019 04/06/2019 Inactive ipratropium-albuterol 0.5 mg-3 mg(2.5 mg base)/3 mL ne bulization soln RxNorm: 6056737 1 Unit Dose INH Q4H 03/21/2019 No Stop Date Active replaces albuterol solution meclizine 12.5 mg tablet RxNorm: 692043 1 Tablet(s) PO BID as neede d 03/21/2019 12/21/2019 Inactive losartan 100 mg tablet RxNorm: 948483 1 Tablet(s) PO QD replace s lisinopril 03/13/2019 09/08/2019 Inactive fluconazole 100 mg tablet RxNorm: 202290 1 Tablet(s) PO QD 03/13/20 19 03/19/2019 Inactive nystatin 100,000 unit/mL oral suspension RxNorm: 622145 5 Unit( s) PO QID 03/13/2019 03/26/2019 Inactive tramadol 50 mg tablet RxNorm: 920554 1 Tablet(s) PO TID as needed for pain TAKE 2 TABS OF EXTRA STRENGTH TYLENOL WITH EACH DOSE 03/10/2019 04/06/2019 Inactive Generic For:*ULTRAM 50 MG TABLET 01/15/2019 4:55:26 PM Sinemet CR 50 mg-200 mg tablet,extended release RxNorm: 8343 41 1 Tablet(s) PO TID 02/26/2019 08/24/2019 Inactive Generic For:*SIN EMET CR 50/200 TABLET SA 07/08/2018 3:09:11 PM trazodone 150 mg tablet RxNorm: 929015 1/2 Tablet(s) PO QHS as needed for sleep 02/13/2019 02/12/2019 Inactive trazodone 150 mg tablet RxNorm: 266137 1/2 Tablet(s) PO QHS as needed for sleep 02/13/2019 02/25/2019 Inactive replaces PA on doxep in doxepin 10 mg capsule RxNorm: 8264466 1-2 Capsule(s) PO QHS prn sleep 02/13/2019 02/13/2019 Inactive Novolog U-100 Insulin aspart 100 unit/mL subcutaneous soluti on RxNorm: 652672 INJECT 10 UNIT(S) SUBCUTANEOUSLY BEFORE MEALS 01/31/2019 05/30/2019 In active 01/31/2019 1:39:10 PM ipratropium-albuterol 0.5 mg-3 mg(2.5 mg base)/3 mL ne bulization soln RxNorm: 0690727 1 Unit Dose INH Q4H 01/17/2019 03/20/2019 Inactive replaces albuterol solution tramadol 50 mg tablet RxNorm: 231331 1 Tablet(s) PO TID as needed for pain TAKE 2 TABS OF EXTRA STRENGTH TYLENOL WITH EACH DOSE 01/15/2019 02/03/2019 Inactive Generic For:*ULTRAM 50 MG TABLET 01/15/2019 4:55:26 PM Sinemet CR 50 mg-200 mg tablet,extended release RxNorm: 8343 41 1 Tablet(s) PO BID 01/03/2019 02/25/2019 Inactive Generic For:*SIN EMET CR 50/200 TABLET SA 07/08/2018 3:09:11 PM losartan 100 mg tablet RxNorm: 022174 1 Tablet(s) PO QD replace s lisinopril 01/03/2019 03/12/2019 Inactive Symbicort 160 mcg-4.5 mcg/actuation HFA aerosol inhaler RxNo rm: 3609001 2 Puff(s) INH BID 01/03/2019 01/02/2019 Inactive pantoprazole 40 mg tablet,delayed release RxNorm: 030978 TAKE 1 TABLET BY MOUTH DAILY FOR STOMACH 01/03/2019 03/23/2019 Inactive Generic For:MO OTONIX 40MG TAB EC 01/03/2019 1:23:44 PM nystatin 100,000 unit/mL oral suspension RxNorm: 160555 Unit(s) 5 Unit(s) PO QID swish and spit 01/02/2019 11/11/2019 Inactive Incruse Ellipta 62.5 mcg/actuation powder for inhalation RxN orm: 3939067 1 Capsule(s) INH QD 12/25/2018 12/21/2019 Inactive Tessalon Perles 100 mg capsule RxNorm: 574379 1 Capsule(s) PO T ID for cough 12/25/2018 02/25/2019 Inactive Medrol (Gui) 4 mg tablets in a dose pack RxNorm: 227331 Tablet(s) PO Use as directed 12/23/2018 01/02/2019 Inactive Levemir FlexTouch U-100 Insulin 100 unit/mL (3 mL) sub cutaneous pen RxNorm: 191867 20 Unit(s) SQ QD with pen needles 12/13/2018 05/11/2019 Inactiv e prednisone 20 mg tablet RxNorm: 422855 1 Tablet(s) PO QD 12/12/2018 0 12/11/2018 Inactive prednisone 20 mg tablet RxNorm: 628488 1 Tablet(s) PO QD 12/12/2018 0 12/16/2018 Inactive promethazine 6.25 mg-codeine 10 mg/5 mL syrup RxNorm: 100032 5 Milliliter(s) PO QHS as needed for cough 12/09/2018 12/18/2018 Inactive cefdinir 300 mg capsule RxNorm: 980395 1 Capsule(s) PO BID 12/10/19 19 12/18/2018 Inactive fluconazole 100 mg tablet RxNorm: 935114 1 Tablet(s) PO QD 12/06/19 19 12/08/2018 Inactive ropinirole 4 mg tablet RxNorm: 207306 3 Tablet(s) PO QHS for re stless legs 12/04/2018 03/03/2019 Inactive Novolog U-100 Insulin aspart 100 unit/mL subcutaneous soluti on RxNorm: 434532 INJECT 10 UNIT(S) SUBCUTANEOUSLY BEFORE MEALS 12/04/2018 01/30/2019 In active 12/04/2018 10:02:42 AM nystatin 100,000 unit/mL oral suspension RxNorm: 230587 5 Unit(s) PO QID swish and spit 11/25/2018 12/18/2018 Inactive ropinirole 4 mg tablet RxNorm: 439205 3 Tablet(s) PO QHS for re stless legs 11/04/2018 12/03/2018 Inactive prednisone 20 mg tablet RxNorm: 465172 1 Tablet(s) PO BID 10/23/2018 10/29/2018 Inactive ropinirole 4 mg tablet RxNorm: 907463 3 Tablet(s) PO QHS for re stless legs 10/14/2018 11/04/2018 Inactive pantoprazole 40 mg tablet,delayed release RxNorm: 094357 1 Tablet(s) PO QD forstomach 10/10/2018 01/02/2019 Inactive Symbicort 160 mcg-4.5 mcg/actuation HFA aerosol inhaler RxNo rm: 5529781 2 Puff(s) INH BID 10/10/2018 01/03/2019 Inactive Novolog U-100 Insulin aspart 100 unit/mL subcutaneous soluti on RxNorm: 268325 INJECT 10 UNIT(S) SUBCUTANEOUSLY BEFORE MEALS 10/10/2018 12/03/2018 In active 10/10/2018 11:30:01 AM Sinemet CR 50 mg-200 mg tablet,extended release RxNorm: 8343 41 1 Tablet(s) PO BID 09/26/2018 01/03/2019 Inactive Generic For:*SIN EMET CR 50/200 TABLET SA 07/08/2018 3:09:11 PM ropinirole 4 mg tablet RxNorm: 186882 2 Tablet(s) PO QHS for re stless legs 09/18/2018 10/13/2018 Inactive metformin ER 1,000 mg tablet,extended release 24hr RxNorm: 1 619673 1 Tablet(s) PO BID 09/09/2018 12/18/2018 Inactive ropinirole 4 mg tablet RxNorm: 112795 2 Tablet(s) PO QHS for re stless legs 08/21/2018 09/17/2018 Inactive doxycycline hyclate 100 mg capsule RxNorm: 3283023 1 Capsule(s) PO BID 08/07/2018 08/13/2018 Inactive ropinirole 4 mg tablet RxNorm: 718101 1 Tablet(s) PO QHS replac es 1mg dose 08/07/2018 08/20/2018 Inactive ropinirole 2 mg tablet RxNorm: 267205 TAKE 3 TABLETS BY MOUTH DAILY AT BEDTIME DO NOT EXCEED 3 TABLETS PER DAY!!!! 07/31/2018 08/06/2018 Inactive Generic For:REQUIP 2 MG TABLET 07/30/2018 3:50:28 PM Symbicort 160 mcg-4.5 mcg/actuation HFA aerosol inhaler RxNo rm: 0046769 2 Puff(s) INH BID 07/12/2018 10/09/2018 Inactive Sinemet CR 50 mg-200 mg tablet,extended release RxNorm: 8343 41 TAKE 1 TABLET BY MOUTH TWICE DAILY 07/08/2018 09/26/2018 Inactive Generic For:*S INEMET CR 50/200 TABLET SA 07/08/2018 3:09:11 PM losartan 100 mg tablet RxNorm: 853220 1 Tablet(s) PO QD replace s lisinopril 06/17/2018 12/13/2018 Inactive Novolog U-100 Insulin aspart 100 unit/mL subcutaneous soluti on RxNorm: 233371 10 Unit(s) SQ AC 06/17/2018 10/09/2018 Inactive albuterol sulfate 2.5 mg/3 mL (0.083 %) solution for n ebulization RxNorm: 335413 Milliliter(s) INH USE 1 VIAL IN NEBULIZE R EVERY FOUR HOURS NEEDED FOR WHEEZING OR SHORTNESS OF BREATH 06/13/2018 01/16/2019 Inactive Generic For:*PROVENTIL 0.83 MG/ML SOLUTN 06/13/2013 2:04:46 PM ropinirole 2 mg tablet RxNorm: 606462 3 Tablet(s) PO QH S DO NOT EXCEED 6MG (3 TABLETS) PER DAY!!!! 06/13/2018 07/31/2018 Inactive atorvastatin 40 mg tablet RxNorm: 862787 Tablet(s) TAKE 1 TABLET BY MOUTH EVERY DAY 05/13/2018 12/18/2018 Inactive Generic For:LIPI TOR 40MG TAB 05/01/2018 8:37:31 AM Sinemet CR 50 mg-200 mg tablet,extended release RxNorm: 8343 41 1 Tablet(s) PO BID 05/08/2018 07/06/2018 Inactive Lidocaine Viscous 2 % mucosal solution RxNorm: 6324555 5 Milliliter(s) PO QID as needed 05/02/2018 08/06/2018 Inactive Diflucan 100 mg tablet RxNorm: 247675 1 Tablet(s) PO QD 05/02/2018 Inactive atorvastatin 40 mg tablet RxNorm: 604433 TAKE 1 TABLET BY MOUTH EVERY DAY 05/01/2018 05/13/2018 Inactive Generic For:LIPITOR 40MG TAB 05/01/2018 8:37:31 AM nystatin 100,000 unit/mL oral suspension RxNorm: 008271 5 Unit(s) PO QID (before meals and at bedtime) 04/24/2018 04/30/2018 Inactive Ventolin HFA 90 mcg/actuation aerosol inhaler RxNorm: 827712 2 Puff(s) INH Q4H as needed one inhaler for home and one inhaler for car 04/23/201812/18 Inactive Mucinex 600 mg tablet, extended release RxNorm: 461936 1 Tablet(s) PO BID for congestion 04/22/2018 05/21/2018 Inactive prednisone 10 mg tablet RxNorm: 444506 Tablet(s) PO as directeds 08/06/2018 Inactive ropinirole 2 mg tablet RxNorm: 059215 3 Tablet(s) PO QH S DO NOT EXCEED 6MG (3 TABLETS) PER DAY!!!! 04/09/2018 05/08/2018 Inactive gabapentin 300 mg capsule RxNorm: 607441 1-2 Capsule(s) PO QHS 02/201804/08/2018 Inactive ropinirole 2 mg tablet RxNorm: 249491 1 Tablet(s) PO QHS 03/28/2018 0 04/08/2018 Inactive gabapentin 300 mg capsule RxNorm: 800334 1-2 Capsule(s) PO QHS 02/2303/29/2018 Inactive gabapentin 300 mg capsule RxNorm: 925028 1-2 Capsule(s) PO QHS 02/2203/13/2018 Inactive gabapentin 300 mg capsule RxNorm: 703385 2 Capsule(s) PO QHS 201703/11/2018 Inactive ropinirole 2 mg tablet RxNorm: 539127 1 Tablet(s) PO QHS 02/28/2018 0 03/28/2018 Inactive ropinirole 2 mg tablet RxNorm: 103665 1 Tablet(s) PO QHS 02/28/2018 0 02/27/2018 Inactive gabapentin 300 mg capsule RxNorm: 873668 1 Capsule(s) PO QHS 201702/27/2018 Inactive pantoprazole 40 mg tablet,delayed release RxNorm: 007402 1 Tablet(s) PO QD forstomach 01/23/2018 05/22/2018 Inactive Voltaren 1 % topical gel RxNorm: 455739 1 Gram(s) TOP QID to ri ght knee 01/23/2018 02/04/2018 Inactive metformin ER 500 mg tablet,extended release 24hr RxNorm: 860 975 2 Tablet(s) PO BID 01/09/2018 12/08/2018 Inactive Requip 1 mg tablet RxNorm: 721030 1 Tablet(s) PO QHS 01/09/201802/27 Inactive prednisone 20 mg tablet RxNorm: 789806 1 Tablet(s) PO T ID for 3 days then 1 po BID for 3 days then one daily for 3 days 01/02/2018 02/03/2018 Inactiv e Levaquin 500 mg tablet RxNorm: 999155 1 Tablet(s) PO QD 01/02/2018 Inactive ProAir HFA 90 mcg/actuation aerosol inhaler RxNorm: 934434 2 Puff(s) INH Q4H as needed 12/28/2017 No Stop Date Active please switch to ventolin if insurance doesn't cover montelukast 10 mg tablet RxNorm: 778261 1 Tablet(s) PO QD 12/28/2017 02/03/2018 Inactive Levaquin 500 mg tablet RxNorm: 512727 1 Tablet(s) PO QD 12/21/2017 Inactive ProAir HFA 90 mcg/actuation aerosol inhaler RxNorm: 158528 2 Puff(s) INH Q4H as needed 12/21/2017 12/27/2017 Inactive please switch to ventolin if insurance doesn't cover doxycycline hyclate 100 mg tablet RxNorm: 144506 1 Tablet(s) PO BID 12/17/2017 12/26/2017 Inactive Levemir FlexTouch U-100 Insulin 100 unit/mL (3 mL) sub cutaneous pen RxNorm: 192079 20 Unit(s) SQ QD with pen needles---Due for labs 12/11/2017 02/03/2018 Inactive Requip 1 mg tablet RxNorm: 862765 1 Tablet(s) PO QHS 12/10/201712/09 Inactive Requip 1 mg tablet RxNorm: 493254 1 Tablet(s) PO QHS 12/10/201701/09 Inactive albuterol sulfate 2.5 mg/3 mL (0.083 %) solution for n ebulization RxNorm: 730843 Milliliter(s) INH USE 1 VIAL IN NEBULIZE R EVERY FOUR HOURS NEEDED FOR WHEEZING OR SHORTNESS OF BREATH 12/05/2017 06/13/2018 Inactive Generic For:*PROVENTIL 0.83 MG/ML SOLUTN 06/13/2013 2:04:46 PM Tudorza Pressair 400 mcg/actuation breath activated RxNorm: 8508740 1 Puff(s) INH BID 12/03/2017 12/10/2017 Inactive Levemir FlexTouch U-100 Insulin 100 unit/mL (3 mL) sub cutaneous pen RxNorm: 077863 10 Unit(s) SQ QD with pen needles---Due for labs 11/16/2017 12/10/2017 Inactive Zofran ODT 4 mg disintegrating tablet RxNorm: 840226 1 Tablet(s) PO Q4H as needed for nausea 10/17/2017 02/04/2018 Inactive Efudex 5 % topical cream RxNorm: 758475 Application TOP QD prn to precancer skin lesions 10/17/2017 02/03/2018 Inactive Sinemet CR 50 mg-200 mg tablet,extended release RxNorm: 8343 41 1 Tablet(s) PO BID 10/17/2017 02/05/2018 Inactive Sinemet CR 50 mg-200 mg tablet,extended release RxNorm: 8343 41 1 Tablet(s) PO QHS 09/25/2017 10/16/2017 Inactive gabapentin 600 mg tablet RxNorm: 769503 1 Tablet(s) PO BID 08/15/20 17 08/14/2017 Inactive gabapentin 600 mg tablet RxNorm: 032151 1 Tablet(s) PO BID 08/15/20 17 12/10/2017 Inactive Novolog U-100 Insulin aspart 100 unit/mL subcutaneous soluti on RxNorm: 375899 10 Unit(s) SQ AC 08/15/2017 02/03/2018 Inactive Novolog 100 unit/mL subcutaneous solution RxNorm: 816075 10 Uni t(s) SQ AC 08/13/2017 08/14/2017 Inactive prednisone 20 mg tablet RxNorm: 863983 2 Tablet(s) PO QD 08/02/2017 1 10/04/2016 Inactive gabapentin 600 mg tablet RxNorm: 504500 Tablet(s) 1 Tab let(s) PO QHS replaces 300mg dose 07/09/2017 08/14/2017 Inactive Breo Ellipta 100 mcg-25 mcg/dose powder for inhalation RxNor m: 3050093 1 Unit Dose INH QD 07/02/2017 08/30/2017 Inactive Tudorza Pressair 400 mcg/actuation breath activated RxNorm: 3962463 1 Puff(s) INH BID 06/18/2017 12/02/2017 Inactive gabapentin 600 mg tablet RxNorm: 653234 1 Tablet(s) PO QHS repl aces 300mg dose 06/14/2017 07/08/2017 Inactive metformin ER 1,000 mg tablet,extended release 24hr RxNorm: 1 872697 1 Tablet(s) PO BID 05/29/2017 01/08/2018 Inactive cyclobenzaprine 5 mg tablet RxNorm: 071849 1 Tablet(s) PO TID 05/2906/07/2017 Inactive metformin ER 1,000 mg tablet,extended release 24hr RxNorm: 8 18091 1 Tablet(s) PO BID 05/25/2017 05/28/2017 Inactive metformin ER 1,000 mg tablet,extended release 24hr RxNorm: 8 95696 1 Tablet(s) PO BID 05/22/2017 05/24/2017 Inactive Amaryl 2 mg tablet RxNorm: 196996 1 Tablet(s) PO BID 05/01/201702/03 Inactive glimepiride 2 mg tablet RxNorm: 168098 1 Tablet(s) PO BID 04/19/2017 02/03/2018 Inactive ferrous sulfate 325 mg (65 mg iron) tablet RxNorm: 945973 1 Tab let(s) PO QHS 04/17/2017 02/03/2018 Inactive Requip 4 mg tablet RxNorm: 951950 1 Tablet(s) PO BID 04/12/201704/11 Inactive Requip 4 mg tablet RxNorm: 438413 1 Tablet(s) PO BID 04/12/201704/15 Inactive Levemir FlexTouch 100 unit/mL (3 mL) subcutaneous insulin pe n RxNorm: 957279 10 Unit(s) SQ QD with pen needles---Due for labs 04/05/2017 11/15/2017 In active Silenor 3 mg tablet RxNorm: 788337 1 Tablet(s) PO QHS 04/05/201709/25 Inactive ropinirole 4 mg tablet RxNorm: 980369 1 Tablet(s) PO QHS 03/29/2017 0 04/01/2017 Inactive ropinirole 4 mg tablet RxNorm: 926917 1 Tablet(s) PO QHS 03/29/2017 0 03/28/2017 Inactive Requip 4 mg tablet RxNorm: 828093 1 Tablet(s) PO QHS 03/28/201704/01 Inactive gabapentin 600 mg tablet RxNorm: 449194 1 Tablet(s) PO QHS repl aces 300mg dose 03/28/2017 04/15/2017 Inactive Requip 4 mg tablet RxNorm: 218236 1 Tablet(s) PO QHS 03/23/201703/27 Inactive gabapentin 600 mg tablet RxNorm: 094556 1 Tablet(s) PO QHS 03/13/20 17 03/12/2017 Inactive gabapentin 600 mg tablet RxNorm: 594455 1 Tablet(s) PO QHS 03/13/20 17 03/27/2017 Inactive gabapentin 300 mg capsule RxNorm: 307056 1 Capsule(s) PO QPM 201603/12/2017 Inactive Generic For:NEURONTIN 300 MG CAPSULE 01/22/2017 10:10:39 AM losartan 100 mg tablet RxNorm: 273936 1 Tablet(s) PO QD replace s lisinopril 02/21/2017 06/17/2018 Inactive gabapentin 300 mg capsule RxNorm: 132937 TAKE 1 CAPSULE BY MOUT H EVERY EVENING 01/22/2017 02/21/2017 Inactive Generic For:NEURONTI N 300 MG CAPSULE 01/22/2017 10:10:39 AM gabapentin 300 mg capsule RxNorm: 988920 1 Capsule(s) PO QPM 201601/21/2017 Inactive Requip 4 mg tablet RxNorm: 717752 1 Tablet(s) PO QHS 12/21/201603/20 Inactive Effient 10 mg tablet RxNorm: 025201 1 Tablet(s) PO QD 12/12/201612/23 Inactive gabapentin 300 mg capsule RxNorm: 660368 1 Capsule(s) PO QPM 201612/03/2016 Inactive gabapentin 300 mg capsule RxNorm: 870365 1 Capsule(s) PO QPM 201612/13/2016 Inactive Requip 4 mg tablet RxNorm: 831537 1 Tablet(s) PO QHS 11/28/201612/21 Inactive atorvastatin 40 mg tablet RxNorm: 076413 Tablet(s) 1 Tablet(s) PO Q D 11/22/2016 08/18/2017 Inactive atorvastatin 40 mg tablet RxNorm: 205756 1 Tablet(s) PO QD 11/23/1911/21/2016 Inactive ropinirole 1 mg tablet RxNorm: 504365 2.5 Tablet(s) PO QPM for legs/sleep 11/14/2016 11/27/2016 Inactive nystatin 100,000 unit/mL oral suspension RxNorm: 413073 5 Unit(s) PO QID swish and spit 10/31/2016 02/03/2018 Inactive fluconazole 100 mg tablet RxNorm: 322067 1 Tablet(s) PO QD 10/31/19 17 11/09/2016 Inactive doxycycline hyclate 100 mg capsule RxNorm: 0624196 1 Capsule(s) PO BID 10/03/2016 10/12/2016 Inactive Levemir FlexTouch 100 unit/mL (3 mL) subcutaneous insulin pe n RxNorm: 610081 10 Unit(s) SQ QD with pen needles 09/18/2016 04/04/2017 Inactive amitriptyline 25 mg tablet RxNorm: 613888 1 Tablet(s) P O QHS as needed for sleep 09/04/2016 10/17/2016 Inactive ropinirole 1 mg tablet RxNorm: 002588 1.5 Tablet(s) PO QPM for legs/sleep 09/04/2016 11/13/2016 Inactive amitriptyline 25 mg tablet RxNorm: 561002 1 Tablet(s) P O QHS as needed for sleep 08/22/2016 09/03/2016 Inactive clopidogrel 75 mg tablet RxNorm: 046197 1 Tablet(s) PO QD 08/10/2016 10/17/2016 Inactive Zoloft 100 mg tablet RxNorm: 689139 2 Tablet(s) PO QHS 08/10/2016 Inactive atorvastatin 40 mg tablet RxNorm: 616125 1 Tablet(s) PO QD 08/10/20 16 10/17/2016 Inactive ropinirole 1 mg tablet RxNorm: 492665 1 Tablet(s) PO QPM for le gs/sleep 08/10/2016 09/03/2016 Inactive losartan 100 mg tablet RxNorm: 460895 1 Tablet(s) PO QD replace s lisinopril 07/20/2016 02/21/2017 Inactive Zofran 4 mg tablet RxNorm: 237157 1 Tablet(s) PO Q4H as needed for nausea 07/06/2016 10/17/2016 Inactive Flagyl 500 mg tablet RxNorm: 709003 1 Tablet(s) PO TID 07/06/2016 Inactive Plavix 75 mg tablet RxNorm: 155235 1 Tablet(s) PO QD 06/08/201607/05 Inactive isosorbide mononitrate ER 30 mg tablet,extended release 24 h r RxNorm: 423433 1 Tablet(s) PO QAM 06/08/2016 08/09/2016 Inactive atorvastatin 40 mg tablet RxNorm: 969524 1 Tablet(s) PO QD 06/08/20 16 08/09/2016 Inactive hydrochlorothiazide 12.5 mg tablet RxNorm: 001232 1 Tablet(s) PO QA M 06/08/2016 07/05/2016 Inactive metformin ER 1,000 mg tablet,extended release 24hr RxNorm: 8 47951 1 Tablet(s) PO BID 06/08/2016 09/05/2016 Inactive metoprolol tartrate 25 mg tablet RxNorm: 167701 1/2 Tablet(s) PO BI D 06/08/2016 08/09/2016 Inactive Zoloft 100 mg tablet RxNorm: 138847 2 Tablet(s) PO QHS 04/03/2016 Inactive metformin ER 1,000 mg tablet,extended release 24hr RxNorm: 8 95360 Tablet(s) 1 Tablet(s) PO QD 03/30/2016 12/18/2018 Inactive Levemir FlexTouch 100 unit/mL (3 mL) subcutaneous insulin pe n RxNorm: 387683 10 Unit(s) SQ QD 03/09/2016 03/08/2016 Inactive Levemir FlexTouch 100 unit/mL (3 mL) subcutaneous insulin pe n RxNorm: 422066 10 Unit(s) SQ QD with pen needles 03/09/2016 03/20/2016 Inactive Mobic 15 mg tablet RxNorm: 292503 1 Tablet(s) PO QD for foot pain 0 02/17/2016 03/17/2016 Inactive Zoloft 100 mg tablet RxNorm: 509866 1 1/2 Tablet(s) PO QHS 01/31/20 16 04/02/2016 Inactive omeprazole 20 mg capsule,delayed release RxNorm: 818178 TAKE 2 CAPSULES BY MOUTH EVERY DAY 01/12/2016 08/09/2016 Inactive Generic For:*CHERYL LOSEC [address] 01/12/2016 8:58:34 AM Zoloft 100 mg tablet RxNorm: 153350 1/2 Tablet(s) PO QH S for 1 week then 1 tablet po q HS 12/30/2015 01/27/2016 Inactive Ventolin HFA 90 mcg/actuation aerosol inhaler RxNorm: 836728 2 Puff(s) INH QID as needed for shortness of breath 12/30/2015 02/03/2018 Inactive [AttnRPh: Saving apply/adjudicate RxGRP:SG20 RxBIN:[id number] RxPCN: ID#:[id number]] metformin ER 1,000 mg tablet,extended release 24hr RxNorm: 8 42311 1 Tablet(s) PO QD 12/20/2015 03/18/2016 Inactive clindamycin 300 mg capsule RxNorm: 518000 1 Capsule(s) PO TID 12/0512/15/2015 Inactive mupirocin 2 % topical cream RxNorm: 479064 TOP to facial lesion s twice daily 11/15/2015 12/15/2015 Inactive cefdinir 300 mg capsule RxNorm: 653660 1 Capsule(s) PO BID 11/15/19 16 11/24/2015 Inactive Medrol (Gui) 4 mg tablets in a dose pack RxNorm: 149049 Tablet(s) PO as directed 10/11/2015 12/15/2015 Inactive albuterol sulfate 2.5 mg/3 mL (0.083 %) solution for n ebulization RxNorm: 369194 INH USE 1 VIAL IN NEBULIZER EVERY FOUR H OURS NEEDED FOR WHEEZING OR SHORTNESS OF BREATH 10/05/2015 10/04/2015 Inactive Generic For:*PRO VENTIL 0.83 MG/ML SOLUTN 06/13/2013 2:04:46 PM doxycycline hyclate 100 mg capsule RxNorm: 7046648 1 Capsule(s) PO BID 10/05/2015 10/14/2015 Inactive albuterol sulfate 2.5 mg/3 mL (0.083 %) solution for n ebulization RxNorm: 926075 Milliliter(s) INH USE 1 VIAL IN NEBULIZE R EVERY FOUR HOURS NEEDED FOR WHEEZING OR SHORTNESS OF BREATH Dx: J44.9 10/05/2015 12/05/2017 Inacti ve Generic For:*PROVENTIL 0.83 MG/ML SOLUTN 06/13/2013 2:04:46 PM albuterol sulfate 2.5 mg/3 mL (0.083 %) solution for n ebulization RxNorm: 520228 3 Milliliter(s) INH USE 1 VIAL IN NEBULI ZER EVERY FOUR HOURS NEEDED FOR WHEEZING OR SHORTNESS OF BREATH 09/06/2015 10/04/2015 Inactive Generic For:*PROVENTIL 0.83 MG/ML SOLUTN 06/13/2013 2:04:46 PM Tradjenta 5 mg tablet RxNorm: 7024883 2 Tablet(s) PO QD 07/22/2015 Inactive albuterol sulfate 2.5 mg/3 mL (0.083 %) solution for n ebulization RxNorm: 070493 3 Milliliter(s) INH USE 1 VIAL IN NEBULI ZER EVERY FOUR HOURS NEEDED FOR WHEEZING OR SHORTNESS OF BREATH 06/29/2015 09/05/2015 Inactive Generic For:*PROVENTIL 0.83 MG/ML SOLUTN 06/13/2013 2:04:46 PM albuterol sulfate 2.5 mg/3 mL (0.083 %) solution for n ebulization RxNorm: 601316 Milliliter(s) INH USE 1 VIAL IN NEBULIZE R EVERY FOUR HOURS NEEDED FOR WHEEZING OR SHORTNESS OF BREATH 06/29/2015 12/04/2017 Inactive Generic For:*PROVENTIL 0.83 MG/ML SOLUTN 06/13/2013 2:04:46 PM doxycycline hyclate 100 mg tablet RxNorm: 346984 1 Tablet(s) PO BID 06/28/2015 07/07/2015 Inactive losartan 100 mg tablet RxNorm: 596446 1 Tablet(s) PO QD -replac es lisinopril 06/14/2015 09/05/2015 Inactive metformin ER 1,000 mg tablet,extended release 24hr RxNorm: 8 93398 1 Tablet(s) PO QD 06/14/2015 09/11/2015 Inactive losartan 100 mg tablet RxNorm: 659070 1 Tablet(s) PO QD -replac es lisinopril 06/14/2015 12/10/2015 Inactive Zocor 20 mg tablet RxNorm: 263864 Tablet(s) Tablet(s) 1 Tablet(s) PO QD -needs lipids labs 06/14/2015 06/14/2015 Inactive atorvastatin 40 mg tablet RxNorm: 198819 1 Tablet(s) PO QD repl aces simvastatin 06/14/2015 12/10/2015 Inactive loratadine 10 mg tablet RxNorm: 289781 Tablet(s) 1 Tablet(s) PO QD for drainage 06/14/2015 06/07/2016 Inactive Celexa 40 mg tablet RxNorm: 698819 1 Tablet(s) PO QD TA KE ONE (1) TABLET BY MOUTH DAILY 06/14/2015 12/29/2015 Inactive Generic For:HARJINDER XA 40 MG TABLET clindamycin 300 mg capsule RxNorm: 547485 2 Capsule(s) PO BID 06/0306/12/2015 Inactive metformin ER 1,000 mg tablet,extended release 24hr RxNorm: 8 43145 1 Tablet(s) PO QD 06/03/2015 06/02/2015 Inactive metformin ER 1,000 mg tablet,extended release 24hr RxNorm: 8 54628 1 Tablet(s) PO QD 06/03/2015 06/13/2015 Inactive mupirocin 2 % topical ointment RxNorm: 383102 TOP apply to open lesion of knee twice daily 06/03/2015 01/30/2016 Inactive Zocor 20 mg tablet RxNorm: 417905 Tablet(s) 1 Tablet(s ) PO QD -needs lipids labs 05/13/2015 06/13/2015 Inactive Celexa 40 mg tablet RxNorm: 530842 1 Tablet(s) PO QD TA KE ONE (1) TABLET BY MOUTH DAILY 05/13/2015 06/13/2015 Inactive Generic For:HARJINDER XA 40 MG TABLET Zocor 20 mg tablet RxNorm: 640895 Tablet(s) 1 Tablet(s ) PO QD -needs lipids labs 02/23/2015 03/24/2015 Inactive loratadine 10 mg tablet RxNorm: 707467 1 Tablet(s) PO QD for dr saenz 12/24/2014 06/13/2015 Inactive Zocor 20 mg tablet RxNorm: 621346 1 Tablet(s) PO QD -needs lipi ds labs 11/17/2014 02/23/2015 Inactive Celexa 40 mg tablet RxNorm: 354860 1 Tablet(s) PO QD 1 Tablet(s) PO QD 1 Tablet(s) PO QD Generic OKAY 11/11/2014 05/13/2015 Inactive Zocor 20 mg tablet RxNorm: 537827 1 Tablet(s) PO QD -needs lipi ds labs 11/11/2014 11/16/2014 Inactive omeprazole 20 mg capsule,delayed release RxNorm: 529372 2 Capsule(s) PO QD TAKE 2 CAPSULES BY MOUTH DAILY 10/27/2014 04/24/2015 Inactive Shena harp For:*PRILOSEC 20 MG CAPSULE trazodone 50 mg tablet RxNorm: 720119 1 1/2 Tablet(s) PO QHS 201412/29/2015 Inactive losartan 100 mg tablet RxNorm: 987420 1 Tablet(s) PO QD -replac es lisinopril 10/26/2014 04/23/2015 Inactive Levaquin 500 mg tablet RxNorm: 426797 1 Tablet(s) PO QD 10/08/2014 Inactive Levaquin 500 mg tablet RxNorm: 670726 1 Tablet(s) PO QD 10/08/2014 Inactive Diflucan 100 mg tablet RxNorm: 050105 1 Tablet(s) PO QD 10/06/2014 Inactive DuoNeb 0.5 mg-3 mg(2.5 mg base)/3 mL solution for nebulizati on RxNorm: 9544912 3 Milliliter(s) INH QID 09/23/2014 08/09/2016 Inactive Ventolin HFA 90 mcg/actuation aerosol inhaler RxNorm: 400706 2 Puff(s) INH QID as needed for shortness of breath 09/21/2014 12/29/2015 Inactive [AttnRPh: Saving apply/adjudicate RxGRP:SG20 RxBIN:[id number] RxPCN: ID#:[id number]] promethazine-codeine 6.25 mg-10 mg/5 mL syrup RxNorm: 389001 1 Teaspoon(s) PO QHS as needed for cough 09/08/2014 09/20/2014 Inactive prednisone 20 mg tablet RxNorm: 603754 1 Tablet(s) PO BID 09/02/2014 09/08/2014 Inactive promethazine-codeine 6.25 mg-10 mg/5 mL syrup RxNorm: 022640 1 Teaspoon(s) PO Q4H 09/02/2014 09/20/2014 Inactive doxycycline monohydrate 100 mg capsule RxNorm: 364469 1 Capsule (s) PO BID 09/02/2014 09/07/2014 Inactive Tessalon Perles 100 mg capsule RxNorm: 769175 1 Capsule (s) PO TID as needed for cough 08/31/2014 09/20/2014 Inactive Actos 15 mg tablet RxNorm: 554848 1 Tablet(s) PO QAM 1 Tablet(s ) PO QAM 08/26/2014 09/20/2014 Inactive loratadine 10 mg tablet RxNorm: 896513 1 Tablet(s) PO QD for dr saenz 08/26/2014 10/26/2014 Inactive Zithromax 500 mg tablet RxNorm: 835459 1 Tablet(s) PO QD 08/25/2014 1 11/01/2013 Inactive Zithromax 500 mg tablet RxNorm: 563448 1 Tablet(s) PO QD 08/25/2014 1 10/25/2013 Inactive Trazadone 75mg Tablet RxNorm: 1 Tablet(s) PO QHS 08/10/20142018 Inactive Zocor 20 mg tablet RxNorm: 576307 1 Tablet(s) PO QD 08/10/20142014 Inactive Trazadone 75mg Tablet RxNorm: 1 Tablet(s) PO QHS as need ed for sleep 08/10/2014 10/08/2014 Inactive Celexa 40 mg tablet RxNorm: 146325 1 Tablet(s) PO QD 1 Tablet(s) PO QD 1 Tablet(s) PO QD Generic OKAY 06/09/2014 10/06/2014 Inactive Actos 15 mg tablet RxNorm: 145377 1 Tablet(s) PO QAM 05/12/201408/26 Inactive lisinopril 20 mg tablet RxNorm: 600290 1 Tablet(s) PO QD 05/12/2014 0 10/26/2014 Inactive TAKE ONE TABLET BY MOUTH EVERY DAY;Gener ic For:*PRINIVIL 20 MG TABLET [AttnRPh: Saving apply/adjudicate RxGRP:SG20 RxBIN:[id number] RxPCN: ID#:[id number]] hydrocodone 5 mg-acetaminophen 325 mg tablet RxNorm: 717206 1 Tablet(s) PO TID as needed for pain for severe pain 04/30/2014 08/09/2014 Inactive hydrocodone 5 mg-acetaminophen 325 mg tablet RxNorm: 738164 1 Tablet(s) PO TID as needed for pain for severe pain 04/17/2014 04/29/2014 Inactive doxycycline hyclate 100 mg capsule RxNorm: 514545 1 Capsule(s) PO BID 03/05/2014 03/04/2014 Inactive doxycycline hyclate 100 mg capsule RxNorm: 276818 1 Capsule(s) PO BID 03/05/2014 03/14/2014 Inactive albuterol sulfate 2.5 mg/3 mL (0.083 %) solution for n ebulization RxNorm: 558932 Milliliter(s) INH USE 1 VIAL IN NEBULIZE R EVERY FOUR HOURS NEEDED FOR WHEEZING OR SHORTNESS OF BREATH 03/02/2014 06/29/2015 Inactive Generic For:*PROVENTIL 0.83 MG/ML SOLUTN 06/13/2013 2:04:46 PM Celexa 40 mg tablet RxNorm: 087781 1 Tablet(s) PO QD 1 Tablet(s) PO QD replaces lexapro. Generic OKAY 01/13/2014 06/09/2014 Inactive Actos 15 mg tablet RxNorm: 658821 1 Tablet(s) PO QAM 01/07/201405/12 Inactive lisinopril 20 mg tablet RxNorm: 409299 1 Tablet(s) PO QD 12/08/2013 0 05/12/2014 Inactive TAKE ONE TABLET BY MOUTH EVERY DAY;Gener ic For:*PRINIVIL 20 MG TABLET cefdinir 300 mg capsule RxNorm: 485545 2 Capsule(s) PO QD 11/10/2013 08/09/2014 Inactive cefdinir 300 mg capsule RxNorm: 749173 2 Capsule(s) PO QD 10/09/2013 10/15/2013 Inactive Actos 15 mg tablet RxNorm: 035886 1 Tablet(s) PO QAM 10/09/201301/06 Inactive doxycycline hyclate 100 mg capsule RxNorm: 2852969 1 Capsule(s) PO Q12H 09/18/2013 09/27/2013 Inactive omeprazole 20 mg capsule,delayed release RxNorm: 319119 2 Capsule(s) PO QD TAKE 2 CAPSULES BY MOUTH DAILY 09/03/2013 03/01/2014 Inactive Generi c For:*PRILOSEC [address] Celexa 40 mg tablet RxNorm: 443240 1 Tablet(s) PO QD re places lexapro. Generic OKAY 09/03/2013 01/13/2014 Inactive Symbicort 160 mcg-4.5 mcg/actuation HFA aerosol inhaler RxNo rm: 6006115 2 Puff(s) INH BID 08/13/2013 03/23/2014 Inactive metformin 1,000 mg tablet RxNorm: 238503 1 Tablet(s) PO BID 013 08/12/2013 Inactive TAKE ONE TABLET BY MOUTH TWI CE DAILY;Generic For:GLUCOPHAGE 1,000 MG TABLET 08/27/12 Thank you Actos 15 mg tablet RxNorm: 530157 1 Tablet(s) PO QAM 06/23/201310/09 Inactive lisinopril 20 mg tablet RxNorm: 869879 1 Tablet(s) PO QD 06/23/2013 0 12/08/2013 Inactive TAKE ONE TABLET BY MOUTH EVERY DAY;Gener ic For:*PRINIVIL 20 MG TABLET albuterol sulfate 2.5 mg/3 mL (0.083 %) solution for n ebulization RxNorm: 942496 Solution for Nebulization INH USE 1 VIAL IN NEBULIZER EVERY FOUR HOURS NEEDED FOR WHEEZING OR SHORTNESS OF BREATH 06/16/2013 03/01/2014 Inactive Generic For:*PROVENTIL 0.83 MG/ML SOLUTN 06/13/2013 2:04:46 PM prednisone 10 mg tablet RxNorm: 987118 1 Tablet(s) PO BID 04/09/2013 04/13/2013 Inactive AndroGel 1.25 gram/actuation (1%) Transdermal Gel Pump RxNorm: 2 64608 TD 04/09/2013 08/09/2014 Inactive APPLY 4 PUMPS OF GEL AT BEDTIME DIRECTED; (Appended: Controlled substance eRx refill - RxReferenceNumber: [id number]) azithromycin 250 mg tablet RxNorm: 260273 2 Tablet(s) PO QD 013 04/16/2013 Inactive Amaryl 2 mg tablet RxNorm: 100920 1 Tablet(s) PO BID N eeds appt in 1 month (around March 21) 02/18/2013 08/12/2013 Inactive Amaryl 2 mg tablet RxNorm: 525594 1 Tablet(s) PO BID 02/18/201302/17 Inactive metformin 1,000 mg tablet RxNorm: 854856 1 Tablet(s) PO BID 013 07/27/2013 Inactive TAKE ONE TABLET BY MOUTH TWI CE DAILY;Generic For:GLUCOPHAGE 1,000 MG TABLET 08/27/12 Thank you Actos 15 mg tablet RxNorm: 034939 1 Tablet(s) PO QAM 02/04/201306/03 Inactive albuterol sulfate 2.5 mg/3 mL (0.083 %) Neb Solution RxNorm: 380783 1 Unit Dose INH Q4H prn wheezing or shortness of breath 01/30/2013 06/15/2013 Inac tive Medrol (Gui) 4 mg tablets in a dose pack RxNorm: 860324 Tablet(s) PO as directed 01/20/2013 07/15/2013 Inactive cefdinir 300 mg capsule RxNorm: 938506 1 Capsule(s) PO BID anti biotic 01/20/2013 01/29/2013 Inactive lisinopril 20 mg tablet RxNorm: 963119 Tablet(s) PO 01/13/20132012 Inactive TAKE ONE TABLET BY MOUTH EVERY DAY;Gener ic For:*PRINIVIL 20 MG TABLET citalopram 40 mg tablet RxNorm: 358518 Tablet(s) PO 01/13/20132013 Inactive TAKE ONE (1) TABLET BY MOUTH DAILY;Gener ic For:CELEXA 40 MG TABLET omeprazole 20 mg capsule,delayed release RxNorm: 619570 Capsule(s) PO TAKE 2 CAPSULES BY MOUTH DAILY 11/15/2012 09/03/2013 Inactive Generic For:*PRILOSEC [address] amoxicillin 875 mg tablet RxNorm: 220796 1 Tablet(s) PO BID 013 10/28/2012 Inactive Actos 30 mg tablet RxNorm: 366424 1 Tablet(s) PO QD 09/23/20122011 Inactive Actos 15 mg tablet RxNorm: 662929 1 Tablet(s) PO QAM 09/23/201209/22 Inactive Actos 15 mg tablet RxNorm: 472721 1 Tablet(s) PO QAM 09/23/201202/04 Inactive prednisone 20 mg tablet RxNorm: 585036 1 Tablet(s) PO BID 08/28/2012 09/03/2012 Inactive doxycycline hyclate 100 mg tablet RxNorm: 6926513 1 Tablet(s) PO BI D 08/28/2012 09/06/2012 Inactive metformin 1,000 mg tablet RxNorm: 379683 Tablet(s) PO 08/27/201201/22 Inactive TAKE ONE TABLET BY MOUTH TWICE DAILY;Gen joshua For:GLUCOPHAGE 1,000 MG TABLET 08/27/12 Thank you citalopram 40 mg tablet RxNorm: 722025 Tablet(s) PO 07/30/20122012 Inactive TAKE ONE (1) TABLET BY MOUTH DAILY;Gener ic For:CELEXA 40 MG TABLET lisinopril 20 mg tablet RxNorm: 492967 Tablet(s) PO 07/30/20122012 Inactive TAKE ONE TABLET BY MOUTH EVERY DAY;Gener ic For:*PRINIVIL 20 MG TABLET AndroGel 1.25 gram/actuation (1%) Transdermal Gel Pump RxNor m: [id number] Gel in Metered-Dose Pump TD 07/09/2012 04/08/2013 Inactive APPLY 4 PUM PS OF GEL AT BEDTIME DIRECTED;WC (Appended: Controlled substance eRx refill - RxReferenceNumber: [id number]) citalopram 40 mg tablet RxNorm: 423247 Tablet(s) PO 07/01/20122011 Inactive TAKE ONE (1) TABLET BY MOUTH DAILY;Gener ic For:CELEXA 40 MG TABLET metformin 1,000 mg tablet RxNorm: 560960 1 Tablet(s) PO BID 012 08/25/2012 Inactive TAKE 1 TABLET BY MOUTH TWICE DAILY;Generic For:GLUCOPHAGE 1,000 MG TABLET meclizine 25 mg Tab RxNorm: 943526 1 Tablet(s) PO QID prn dizziness 05/09/2012 05/18/2012 Inactive lisinopril 20 mg tablet RxNorm: 898058 Tablet(s) PO QD 04/22/2012 Inactive TAKE ONE (1) TABLET BY MOUTH DAILY;Gener ic For:*PRINIVIL 20 MG TABLET metformin 1,000 mg tablet RxNorm: 077651 Tablet(s) PO 03/19/201212/2011 Inactive TAKE 1 TABLET BY MOUTH TWICE DAILY;Gener ic For:GLUCOPHAGE 1,000 MG TABLET cefdinir 300 mg Cap RxNorm: 921537 1 Capsule(s) PO BID 11/28/2011 Inactive cefdinir 300 mg Cap RxNorm: 157163 1 Capsule(s) PO BID 11/01/2011 Inactive citalopram 40 mg tablet RxNorm: 940293 Tablet(s) PO 10/30/20112011 Inactive TAKE ONE (1) TABLET BY MOUTH DAILY;Gener ic For:CELEXA 40 MG TABLET cefdinir 300 mg Cap RxNorm: 145812 1 Capsule(s) PO BID 10/02/2011 Inactive metformin 1,000 mg Tab RxNorm: 484738 1 Tablet(s) PO BID 09/28/2011 0 01/25/2012 Inactive citalopram 40 mg Tab RxNorm: 966646 1 Tablet(s) PO QD 09/28/201111/2011 Inactive omeprazole 20 mg capsule,delayed release RxNorm: 387091 2 Capsu le(s) PO QD 09/28/2011 03/25/2012 Inactive lisinopril 20 mg Tab RxNorm: 075017 Tablet(s) PO 08/21/2011 04/21/2012 Inactive TAKE ONE (1) TABLET BY MOUTH DAILY;Generic For:*PRINIVIL 20 MG TABLET AndroGel 1.25 gram/actuation (1%) Transdermal Gel Pump RxNor m: [id number] Gel in Metered-dose Pump TD 08/21/2011 07/09/2012 Inactive APPLY 4 PUM PS OF GEL AT BEDTIME DIRECTED (Appended: Controlled substance eRx refill - RxReferenceNumber: [id number]) Lantus Solostar 100 unit/mL (3 mL) Sub-Q Insulin Pen RxNorm: 341958 30 Unit(s) SQ QD 06/20/2011 05/08/2012 Inactive Lantus Solostar 100 unit/mL (3 mL) Sub-Q Insulin Pen RxNorm: 157848 30 Unit(s) SQ QD 06/19/2011 06/19/2011 Inactive metformin 1,000 mg Tab RxNorm: 421559 1 Tablet(s) PO BID 05/12/2011 1 11/09/2010 Inactive citalopram 40 mg Tab RxNorm: 820272 1 Tablet(s) PO QD 03/06/201105/2011 Inactive metformin 1,000 mg Tab RxNorm: 924009 1 Tablet(s) PO BID 12/27/2010 0 04/25/2011 Inactive lisinopril 20 mg Tab RxNorm: 611907 Tablet(s) PO TAKE 1 TABLET BY MOUTH EVERY DAY;Generic For:*PRINIVIL 20 MG TABLET 12/26/2010 08/20/2011 Inactive Ceftin 500 mg Tab RxNorm: 690097 1 Tablet(s) PO BID 12/19/20102010 Inactive omeprazole 20 mg Cap, Delayed Release RxNorm: 935085 2 Capsule( s) PO QD 09/13/2010 03/11/2011 Inactive Byetta 10 mcg/0.04 mL per dose Sub-Q Pen Injector RxNorm: 84 7913 1 Unit Dose SQ BID 09/07/2010 10/06/2010 Inactive Celexa 40 mg tablet RxNorm: 446765 1 Tablet(s) PO QD re places lexapro. Generic OKAY 08/09/2010 02/04/2011 Inactive Actos 30 mg Tab RxNorm: 157109 1 Tablet(s) PO QD 08/09/2010 04/02/2011 Inactive lisinopril 20 mg Tab RxNorm: 918786 1 Tablet(s) PO QD 08/09/201011/22 Inactive metformin 1,000 mg Tab RxNorm: 081303 1 Tablet(s) PO BID 08/09/2010 0 12/06/2010 Inactive Metformin 1,000 mg Tab RxNorm: 422191 1 Tablet(s) PO BID 04/26/2010 0 04/25/2010 Inactive metformin 1,000 mg Tab RxNorm: 530079 1 Tablet(s) PO BID 04/26/2010 1 Inactive Lomotil 2.5 mg-0.025 mg Tab RxNorm: 6767134 1 Tablet(s) PO TID 1-2 TABS THREE TIMES DAILY 04/05/2010 04/07/2010 Inactive Mupirocin 2 % Topical Cream RxNorm: 529392 TOP BID 04/05/201003/25 Inactive lisinopril 20 mg Tab RxNorm: 225004 1 Tablet(s) PO QD 03/29/201010/2009 Inactive Actos 30 mg Tab RxNorm: 821085 1 Tablet(s) PO QD 03/29/2010 07/26/2010 Inactive Lisinopril 20 mg Tab RxNorm: 773182 1 Tablet(s) PO QD 02/27/201001/2010 Inactive Actos 30 mg Tab RxNorm: 124092 1 Tablet(s) PO QD 02/14/2010 03/28/2010 Inactive Celexa 40 mg Tab RxNorm: 520657 1 Tablet(s) PO QD replaces lexapro 01/13/2010 07/11/2010 Inactive Cyclobenzaprine 10 mg Tab RxNorm: 435786 1 Tablet(s) PO TID prn spasm 12/23/2009 01/21/2010 Inactive Cyclobenzaprine 10 mg Tab RxNorm: 768826 1 Tablet(s) PO TID 010 12/22/2009 Inactive Hydrocodone-Acetaminophen 7.5 mg-750 mg Tab RxNorm: 211711 1 Ta blet(s) PO Q4-6H 12/23/2009 12/22/2009 Inactive aspirin 81 mg tablet RxNorm: 146627 1 Tablet(s) PO QD No Start Date Active isosorbide mononitrate ER 60 mg tablet,extended release 24 h r RxNorm: 794734 1 Tablet(s) PO QD No Start Date Active amlodipine 5 mg tablet RxNorm: 782225 1 Tablet(s) PO QD No Start Date Active Vitamin D3 1,000 unit tablet RxNorm: 411448 3 Tablet(s) PO QD No St art Date 10/26/2014 Inactive Lexapro 20 mg Tab RxNorm: 324180 1 Tablet(s) PO QD No Start Date 12/24 Inactive loperamide 2 mg tablet RxNorm: 789948 Tablet(s) PO PRN No Start Date 06/07/2016 Inactive Levemir FlexTouch U-100 Insulin 100 unit/mL (3 mL) sub cutaneous pen RxNorm: 765599 22 Unit(s) SQ QD No Start Date 12/21/2019 Inactive Janumet 50 mg-1,000 mg Tab RxNorm: 271277 1 Tablet(s) PO BID No Sta rt Date 01/12/2010 Inactive Levemir U-100 Insulin 100 unit/mL subcutaneous solution RxNo rm: 877197 10 Unit(s) SQ QHS No Start Date 12/08/2018 Inactive Medrol (Gui) 4 mg tablets in a dose pack RxNorm: 461890 Tablet(s) PO Use as directed No Start Date 12/22/2018 Inactive aspirin 325 mg tablet RxNorm: 283148 1 Tablet(s) PO QD No Start Date 08/09/2016 Inactive Efudex 5 % Topical Cream RxNorm: 726326 Application TOP QD prn fto skin lesion No Start Date 08/12/2013 Inactive nitroglycerin 0.4 mg sublingual tablet RxNorm: 024940 Tablet(s) SL as needed No Start Date 12/18/2018 Inactive levofloxacin 500 mg tablet RxNorm: 546923 1 Tablet(s) PO QD No Star t Date 08/06/2018 Inactive ferrous sulfate 325 mg (65 mg iron) tablet RxNorm: 955991 1 Tab let(s) PO QHS No Start Date 04/16/2017 Inactive fluorouracil 5 % topical cream RxNorm: 252414 1 TOP No Start James e 08/06/2018 Inactive Vitamin D3 1,000 unit capsule RxNorm: 322452 1 Capsule(s) PO QD No Start Date 02/03/2018 Inactive Hydrocodone-Acetaminophen 7.5 mg-750 mg Tab RxNorm: 398013 1 Ta blet(s) PO PRN No Start Date 08/09/2014 Inactive pantoprazole 40 mg tablet,delayed release RxNorm: 649164 1 Tabl et(s) PO QD No Start Date 01/22/2018 Inactive omeprazole 20 mg Cap, Delayed Release RxNorm: 032155 2 Capsule( s) PO QD No Start Date 09/12/2010 Inactive DuoNeb 0.5 mg-3 mg(2.5 mg base)/3 mL solution for nebulizati on RxNorm: 4624203 INH Q4H as needed No Start Date 10/22/2018 Inactive Lyrica 75 mg capsule RxNorm: 432367 2 Capsule(s) PO QHS No Start Da te 03/09/2019 Inactive isosorbide mononitrate ER 30 mg tablet,extended release 24 h r RxNorm: 768930 1 Tablet(s) PO QD No Start Date 12/08/2018 Inactive Tradjenta 5 mg tablet RxNorm: 2423188 1 Tablet(s) PO QD No Start Da te 08/09/2016 Inactive Tudorza Pressair 400 mcg/actuation breath activated RxNorm: 2497343 1 Puff(s) INH BID No Start Date 06/17/2017 Inactive Lantus Solostar 100 unit/mL (3 mL) Sub-Q Insulin Pen RxNorm: 865661 30 Unit(s) SQ QD No Start Date 06/18/2011 Inactive Requip 4 mg tablet RxNorm: 336054 1 Tablet(s) PO BID No Start Date Inactive Symbicort 160 mcg-4.5 mcg/actuation HFA aerosol inhaler RxNo rm: 2680042 2 Puff(s) INH BID No Start Date 07/11/2018 Inactive atorvastatin 40 mg tablet RxNorm: 065586 1 Tablet(s) PO QD No Start Date 12/18/2018 Inactive tramadol 50 mg tablet RxNorm: 310690 1 Tablet(s) PO TID as needed for pain (take alone with two extra strength tylenol) No Start Date 01/16/2019 Inactive Symbicort 160 mcg-4.5 mcg/actuation HFA aerosol inhaler RxNo rm: 5969457 2 Puff(s) INH BID No Start Date 08/12/2013 Inactive Vitamin D3 5,000 unit tablet RxNorm: 476618 1 Tablet(s) PO QD No St art Date 05/08/2019 Inactive albuterol sulfate 2.5 mg/3 mL (0.083 %) Neb Solution RxNorm: 057380 1 Unit Dose INH Q4H prn wheezing or shortness of breath No Start Date 01/29/2013 Inac tive Ranexa 500 mg tablet,extended release RxNorm: 297372 1 Tablet(s ) PO BID No Start Date 02/03/2018 Inactive Advair Diskus 500 mcg-50 mcg/dose powder for inhalation RxNo rm: 0664936 1 Puff(s) INH BID No Start Date 08/09/2016 Inactive clopidogrel 75 mg tablet RxNorm: 886571 1 Tablet(s) PO QD No Start Date 05/01/2018 Inactive metformin 1,000 mg Tab RxNorm: 926519 1 Tablet(s) PO BID No Start D ate 08/12/2013 Inactive Silenor 3 mg tablet RxNorm: 303132 1 Tablet(s) PO QHS No Start Date 0 04/04/2017 Inactive Medrol (Gui) 4 mg tablets in a dose pack RxNorm: 970892 Tablet(s) PO as directed No Start Date 01/19/2013 Inactive Requip 4 mg tablet RxNorm: 337944 1 Tablet(s) PO BID No Start Date Inactive clopidogrel 75 mg tablet RxNorm: 197391 1 Tablet(s) PO QD No Start Date 02/03/2018 Inactive Tradjenta 5 mg tablet RxNorm: 7481857 1 Tablet(s) PO QD No Start Da te 02/03/2018 Inactive ProAir HFA 90 mcg/Actuation Aerosol Inhaler RxNorm: 858099 2 Pu ff(s) INH PRN No Start Date 07/09/2012 Inactive Tessalon Perles 100 mg capsule RxNorm: 546552 1 Capsule (s) PO TID as needed for cough No Start Date 08/30/2014 Inactive ferrous sulfate 325 mg (65 mg iron) tablet RxNorm: 743615 1 Tab let(s) PO QD No Start Date 05/08/2019 Inactive pioglitazone 15 mg tablet RxNorm: 368254 1 Tablet(s) PO QD No Start Date 09/20/2014 Inactive Lexapro Oral RxNorm: Oral No Start Date 12/13/2009 Inactive Breo Ellipta 100 mcg-25 mcg/dose powder for inhalation RxNor m: 7485272 1 Puff(s) INH BID No Start Date 05/31/2015 Inactive Tylenol Extra Strength 500 mg tablet RxNorm: 869257 2 T ablet(s) PO QHS along with ropironole No Start Date 12/18/2018 Inactive tramadol 50 mg tablet RxNorm: 571463 1 Tablet(s) PO QID as need ed for pain No Start Date 12/24/2018 Inactive cyclobenzaprine 10 mg Tab RxNorm: 421933 Oral No Start Date 12/22 Inactive Levemir FlexTouch 100 unit/mL (3 mL) subcutaneous insulin pe n RxNorm: 586924 10 Unit(s) SQ QD No Start Date 03/08/2016 Inactive amlodipine 5 mg tablet RxNorm: 353045 1 Tablet(s) PO QD No Start Da te 08/09/2016 Inactive Novolog 100 unit/mL subcutaneous solution RxNorm: 963528 10 Uni t(s) SQ AC No Start Date 08/12/2017 Inactive Levemir FlexTouch 100 unit/mL (3 mL) subcutaneous insulin pe n RxNorm: 612626 25 Unit(s) SQ QPM No Start Date 08/06/2018 Inactive Farxiga 5 mg tablet RxNorm: 8922936 1 Tablet(s) PO QD No Start Date 0 10/05/2014 Inactive DuoNeb 0.5 mg-3 mg(2.5 mg base)/3 mL solution for nebulizati on RxNorm: 0310250 inhalation No Start Date 09/23/2014 Inactive Doxycycline 100 mg Cap RxNorm: 282561 1 Capsule(s) PO BID No Start Date 12/18/2010 Inactive Vitamin B12 1000mcg Tablet RxNorm: 1 Tablet(s) PO QD No Start Date 02/03/2018 Inactive Hydrocodone-Acetaminophen 7.5 mg-750 mg Tab RxNorm: 753365 1 Ta blet(s) PO Q6-8H No Start Date 12/22/2009 Inactive Xigduo XR 5 mg-1,000 mg tablet,extended release RxNorm: 1593 833 1 Tablet(s) PO QD No Start Date 05/31/2015 Inactive cyanocobalamin (vit B-12) 1,000 mcg/mL injection solution Rx Norm: 719855 1 injection weekly for 4 weeks 1 Milliliter(s) Inj No Start Date 05/08/2019 Inactive AndroGel 1.25 g/Actuation (1%) Transdermal Gel Pump RxNorm: 7948623 TD Apply 4pumps daily No Start Date 08/21/2011 Inactive Actoplus MET 15 mg-850 mg Tab RxNorm: 789113 1 Tablet(s) PO BID No Start Date 12/18/2010 Inactive Amaryl 2 mg tablet RxNorm: 636864 1 Tablet(s) PO BID No Start Date Inactive Levemir FlexTouch 100 unit/mL (3 mL) subcutaneous insulin pe n RxNorm: 852013 20 Unit(s) SQ QD No Start Date 06/12/2016 Inactive Symbicort 160 mcg-4.5 mcg/actuation HFA aerosol inhaler RxNo rm: 0782035 2 Puff(s) INH BID No Start Date 02/03/2018 Inactive Symbicort 160 mcg-4.5 mcg/Actuation Inhalation HFA Aer osol Inhaler RxNorm: 4276727 2 INH BID No Start Date 12/18/2010 Inactive Farxiga 5 mg tablet RxNorm: 6096837 1 Tablet(s) PO QD No Start Date 0 03/01/2015 Inactive magnesium oxide 400 mg (241.3 mg magnesium) tablet RxNorm: 1 59115 1 Tablet(s) PO QHS No Start Date 05/08/2019 Inactive Tradjenta 5 mg tablet RxNorm: 5196448 2 Tablet(s) PO QD No Start Da te 07/21/2015 Inactive Levemir FlexTouch U-100 Insulin 100 unit/mL (3 mL) sub cutaneous pen RxNorm: 090378 40 Unit(s) SQ QD No Start Date 08/06/2018 Inactive Sinemet CR 50 mg-200 mg tablet,extended release RxNorm: 8343 41 1 Tablet(s) PO QHS No Start Date 09/24/2017 Inactive metoprolol tartrate 25 mg tablet RxNorm: 189804 1/2 Tablet(s) P O BID No Start Date 02/03/2018 Inactive Requip 4 mg tablet RxNorm: 979314 1 Tablet(s) PO QHS No Start Date Inactive Ventolin HFA 90 mcg/actuation aerosol inhaler RxNorm: 905513 2 Puff(s) INH Q4H as needed No Start Date 04/22/2018 Inactive B12 5,000 mcg-100 mcg sublingual lozenge RxNorm: 301724 IM as d irected No Start Date 05/08/2019 Inactive ropinirole 1 mg tablet RxNorm: 215396 1 Tablet(s) PO QHS No Start D ate 08/06/2018 Inactive Percocet 5 mg-325 mg tablet RxNorm: 7825671 1 Tablet(s) PO Q4H as needed for pain (Dr Rizzo) No Start Date 10/22/2018 Inactive hydrocodone 5 mg-acetaminophen 325 mg tablet RxNorm: 610098 1 Tablet(s) PO TID as needed for pain for severe pain No Start Date 04/16/2014 Inactive scopolamine 1.5 mg 72 hr Transderm Patch RxNorm: 685894 Application TD Q72H for dizziness No Start Date 08/12/2013 Inactive ipratropium-albuterol 0.5 mg-3 mg(2.5 mg base)/3 mL ne bulization soln RxNorm: 0765455 1 Unit Dose INH Q4H No Start Date 01/16/2019 Inactive Medication Administered No Medication Administered data Immunizations Vaccine Codes Date Status Influenza CVX: 135 08/07/2019 Complete Pneumococcal CVX: 33 07/24/2017 Complete Influenza CVX: 135 06/13/2016 Complete Pneumococcal CVX: 133 06/13/2016 Complete Influenza CVX: 141 07/10/2012 Pneumovax Unknown 07/10/2012 Results Observation Observation Code Item Item Code Result Date S ervice Location COMPLETE BLOOD COUNT [id number] WBC 5.5 10e9/L 06/17/20 19 Unknown COMPLETE BLOOD COUNT [id number] RBC 3.92 10e12/L 2018 Unknown COMPLETE BLOOD COUNT [id number] HEMOGLOBIN 10.9 g/dL 06/17/20 19 Unknown COMPLETE BLOOD COUNT 9478479 HEMATOCRIT 34.8 % 06/17/20 19 Unknown COMPLETE BLOOD COUNT 3213279 MCV 88.8 fL 9 Unknown COMPLETE BLOOD COUNT 4577392 MCH 27.8 pg 9 Unknown COMPLETE BLOOD COUNT 1877665 MCHC 31.3 g/dL 9 Unknown COMPLETE BLOOD COUNT 0249758 PLATELET COUNT 239 10e9/L Unknown COMPLETE BLOOD COUNT 1209118 Mean Plt Volume 10.0 fL Unknown COMPLETE BLOOD COUNT 3799805 Neut Auto 68.0 % 9 Unknown COMPLETE BLOOD COUNT 4781796 Lymph Auto 14.8 % 06/17/20 19 Unknown COMPLETE BLOOD COUNT 4865058 [place] Auto 13.1 % 9 Unknown COMPLETE BLOOD COUNT 3244985 RDW 14.7 % 9 Unknown COMPLETE BLOOD COUNT 6011945 Eos Auto 3.6 % 9 Unknown COMPLETE BLOOD COUNT 5451398 Baso Auto 0.5 % 9 Unknown COMPLETE BLOOD COUNT 5442645 Neutrophil Abs 3.74 10e9/L Unknown COMPLETE BLOOD COUNT 0445360 Lymphocyte Abs 0.81 10e9/L Unknown COMPLETE BLOOD COUNT 3690558 Monocyte Abs 0.72 10e9/L 05/26 Unknown COMPLETE BLOOD COUNT 9641480 Eosinophil Abs 0.20 10e9/L Unknown COMPLETE BLOOD COUNT 1537655 RDW-SD 46.4 fL 9 Unknown COMPLETE BLOOD COUNT 9999883 Basophil Abs 0.03 10e9/L 05/26 Unknown IRON 08570 Iron 36 ug/dL 06/17/2019 Unknown VITAMIN B 12 27941 VITAMIN B12 540 pg/mL 06/17/2019 Unkn own GFR CALC 1175447 GFR Non Afr Amr 59 mL/min 06/17/2019 Unk nown GFR CALC 7358844 GFR Afr Amr >60 mL/min 06/17/2019 Unknow n ERYTHROCYTE SEDIMENTATION RATE 58853 Sed Rate 34 mm/hr 06/17/2019 Unknown THYROID STIMULATING HORMONE 49676 TSH 2.217 uIU/mL 06/17/2019 Unknown COMPREHENSIVE METABOLIC 19044 AST 12 U/L 2018 Unknown COMPREHENSIVE METABOLIC 28407 ALT 11 U/L 2018 Unknown COMPREHENSIVE METABOLIC 75539 BUN 17 mg/dL 2018 Unknown COMPREHENSIVE METABOLIC 88532 ALBUMIN 3.9 g/dL 2018 Unknown COMPREHENSIVE METABOLIC 18462 CHLORIDE 103 mmol/L 06/17 Unknown COMPREHENSIVE METABOLIC 81005 Bili Total 0.4 mg/dL 06/17 Unknown COMPREHENSIVE METABOLIC 18231 ALK PHOS 51 U/L 2018 Unknown COMPREHENSIVE METABOLIC 01402 SODIUM 140 mmol/L 06/17 Unknown COMPREHENSIVE METABOLIC 43949 CREATININE 1.20 mg/dL 05/26 Unknown COMPREHENSIVE METABOLIC 87650 CALCIUM 8.9 mg/dL 2018 Unknown COMPREHENSIVE METABOLIC 29549 POTASSIUM 4.5 mmol/L 06/17 Unknown COMPREHENSIVE METABOLIC 12468 Total Protein 6.1 g/dL Unknown COMPREHENSIVE METABOLIC 90467 Glucose 108 mg/dL 2018 Unknown COMPREHENSIVE METABOLIC 17361 Bicarbonate 27 mmol/L 05/26 Unknown COMPREHENSIVE METABOLIC 62122 AGAP 10 mmol/L 2018 Unknown FERRITIN 91997 FERRITIN 35.5 ng/mL 05/08/2019 Unknown VITAMIN D TOTAL (25 HYDROXY) 71244 Vitamin D 25 OH 26.0 ng/mL 05/08/2019 Unknown GLYCOSYLATED HEMOGLOBIN TEST 01495 Hgb A1c 25749-8 8.2 % 0 05/08/2019 Unknown MEAN GLUC 6011192 Calc Mean Gluc 189 mg/dL 05/08/2019 Unkn own GFR CALC 0635828 GFR Non Afr Amr >60 mL/min 05/08/2019 Un known GFR CALC 3645987 GFR Afr Amr >60 mL/min 05/08/2019 Unknow n VITAMIN B 12 85063 VITAMIN B12 197 pg/mL 05/08/2019 Unkn own IRON 39534 Iron 34 ug/dL 05/08/2019 Unknown COMPLETE BLOOD COUNT 8724526 WBC 6.9 10e9/L 05/08/20 19 Unknown COMPLETE BLOOD COUNT 3067875 RBC 3.95 10e12/L 2018 Unknown COMPLETE BLOOD COUNT 8350277 HEMOGLOBIN 11.1 g/dL 05/08/20 19 Unknown COMPLETE BLOOD COUNT 8895247 HEMATOCRIT 34.9 % 05/08/20 19 Unknown COMPLETE BLOOD COUNT 2622213 MCV 88.4 fL 9 Unknown COMPLETE BLOOD COUNT 2588874 MCH 28.1 pg 9 Unknown COMPLETE BLOOD COUNT 8546469 MCHC 31.8 g/dL 9 Unknown COMPLETE BLOOD COUNT 1108179 PLATELET COUNT 217 10e9/L Unknown COMPLETE BLOOD COUNT 3272016 Mean Plt Volume 9.6 fL Unknown COMPLETE BLOOD COUNT 2447521 Neut Auto 77.6 % 9 Unknown COMPLETE BLOOD COUNT 1783249 Lymph Auto 10.7 % 05/08/20 19 Unknown COMPLETE BLOOD COUNT 8944684 [place] Auto 10.4 % 9 Unknown COMPLETE BLOOD COUNT 4157459 RDW 14.7 % 9 Unknown COMPLETE BLOOD COUNT 0585923 Eos Auto 1.2 % 9 Unknown COMPLETE BLOOD COUNT 0822038 Baso Auto 0.1 % 9 Unknown COMPLETE BLOOD COUNT 5514075 Neutrophil Abs 5.35 10e9/L Unknown COMPLETE BLOOD COUNT 9916809 Lymphocyte Abs 0.74 10e9/L Unknown COMPLETE BLOOD COUNT 9138126 Monocyte Abs 0.72 10e9/L 04/24 Unknown COMPLETE BLOOD COUNT 0937550 Eosinophil Abs 0.08 10e9/L Unknown COMPLETE BLOOD COUNT 8535664 RDW-SD 46.6 fL 9 Unknown COMPLETE BLOOD COUNT 2090468 Basophil Abs 0.01 10e9/L 04/24 Unknown COMPREHENSIVE METABOLIC 25253 AST 13 U/L 2018 Unknown COMPREHENSIVE METABOLIC 45942 ALT 9 U/L 2018 Unknown COMPREHENSIVE METABOLIC 34264 BUN 18 mg/dL 2018 Unknown COMPREHENSIVE METABOLIC 13506 ALBUMIN 4.3 g/dL 2018 Unknown COMPREHENSIVE METABOLIC 82899 CHLORIDE 99 mmol/L 2018 Unknown COMPREHENSIVE METABOLIC 38792 Bili Total 0.4 mg/dL 05/08 Unknown COMPREHENSIVE METABOLIC 13283 ALK PHOS 48 U/L 2018 Unknown COMPREHENSIVE METABOLIC 07062 SODIUM 137 mmol/L 05/08 Unknown COMPREHENSIVE METABOLIC 91043 CREATININE 0.79 mg/dL 04/24 Unknown COMPREHENSIVE METABOLIC 71772 CALCIUM 9.5 mg/dL 2018 Unknown COMPREHENSIVE METABOLIC 84567 POTASSIUM 4.0 mmol/L 05/08 Unknown COMPREHENSIVE METABOLIC 63039 Total Protein 6.3 g/dL Unknown COMPREHENSIVE METABOLIC 03547 Glucose 232 mg/dL 2018 Unknown COMPREHENSIVE METABOLIC 46770 Bicarbonate 27 mmol/L 04/24 Unknown COMPREHENSIVE METABOLIC 90902 AGAP 11 mmol/L 2018 Unknown GLYCOSYLATED HEMOGLOBIN TEST 75183 Hgb A1c 04135-1 8.9 % 0 12/10/2018 Unknown MEAN GLUC 6702272 Calc Mean Gluc 209 mg/dL 12/10/2018 Unkn own LIPID GROUP 99026 Cholesterol 145 mg/dL 12/09/2018 Unkno wn LIPID GROUP 37504 Triglyceride 235 mg/dL 12/09/2018 Unkn own LIPID GROUP 43760 HDL CHOLESTEROL 40 mg/dL 12/09/2018 U nknown LIPID GROUP 18393 Chol/HDL Ratio 3.62 ratio 12/09/2018 U nknown LIPID GROUP 25677 NON-HDL Chol 105 mg/dL 12/09/2018 Unkn own LIPID GROUP 58759 LDL Cholesterol 58 mg/dL 12/09/2018 U nknown THYROID STIMULATING HORMONE 46708 TSH 1.071 uIU/mL 12/09/2018 Unknown GFR CALC 9207282 GFR Non Afr Amr >60 mL/min 12/09/2018 Un known GFR CALC 2287296 GFR Afr Amr >60 mL/min 12/09/2018 Unknow n COMPLETE BLOOD COUNT 2539223 WBC 7.6 10e9/L 12/10/19 19 Unknown COMPLETE BLOOD COUNT 9357195 RBC 3.97 10e12/L 2018 Unknown COMPLETE BLOOD COUNT 0250870 HEMOGLOBIN 11.4 g/dL 12/10/19 19 Unknown COMPLETE BLOOD COUNT 3371227 HEMATOCRIT 35.8 % 12/10/19 19 Unknown COMPLETE BLOOD COUNT 6643257 MCV 90.2 fL 9 Unknown COMPLETE BLOOD COUNT 9097259 MCH 28.7 pg 9 Unknown COMPLETE BLOOD COUNT 9036061 MCHC 31.8 g/dL 9 Unknown COMPLETE BLOOD COUNT 6083215 PLATELET COUNT 200 10e9/L Unknown COMPLETE BLOOD COUNT 3563054 Mean Plt Volume 10.1 fL Unknown COMPLETE BLOOD COUNT 7772152 Neut Auto 79.0 % 9 Unknown COMPLETE BLOOD COUNT 2438767 Lymph Auto 8.3 % 12/10/19 19 Unknown COMPLETE BLOOD COUNT 3264331 [place] Auto 10.8 % 9 Unknown COMPLETE BLOOD COUNT 3291045 RDW 14.6 % 9 Unknown COMPLETE BLOOD COUNT 2729792 Eos Auto 1.5 % 9 Unknown COMPLETE BLOOD COUNT 7559941 Baso Auto 0.4 % 9 Unknown COMPLETE BLOOD COUNT 9592384 Neutrophil Abs 6.00 10e9/L Unknown COMPLETE BLOOD COUNT 1748663 Lymphocyte Abs 0.63 10e9/L Unknown COMPLETE BLOOD COUNT 7897865 Monocyte Abs 0.82 10e9/L 11/22 Unknown COMPLETE BLOOD COUNT 5547765 Eosinophil Abs 0.11 10e9/L Unknown COMPLETE BLOOD COUNT 7220104 RDW-SD 46.9 fL 9 Unknown COMPLETE BLOOD COUNT 5449871 Basophil Abs 0.03 10e9/L 11/22 Unknown COMPREHENSIVE METABOLIC 50966 AST 11 U/L 2018 Unknown COMPREHENSIVE METABOLIC 59412 ALT 11 U/L 2018 Unknown COMPREHENSIVE METABOLIC 41168 BUN 21 mg/dL 2018 Unknown COMPREHENSIVE METABOLIC 75029 ALBUMIN 4.7 g/dL 2018 Unknown COMPREHENSIVE METABOLIC 07378 CHLORIDE 99 mmol/L 2018 Unknown COMPREHENSIVE METABOLIC 73370 Bili Total 0.4 mg/dL 12/09 Unknown COMPREHENSIVE METABOLIC 65368 ALK PHOS 73 U/L 2018 Unknown COMPREHENSIVE METABOLIC 77954 SODIUM 137 mmol/L 12/09 Unknown COMPREHENSIVE METABOLIC 21937 CREATININE 1.12 mg/dL 11/22 Unknown COMPREHENSIVE METABOLIC 12528 CALCIUM 9.4 mg/dL 2018 Unknown COMPREHENSIVE METABOLIC 67310 POTASSIUM 4.2 mmol/L 12/09 Unknown COMPREHENSIVE METABOLIC 85529 Total Protein 6.8 g/dL Unknown COMPREHENSIVE METABOLIC 44152 Glucose 194 mg/dL 2018 Unknown COMPREHENSIVE METABOLIC 21347 Bicarbonate 30 mmol/L 11/22 Unknown COMPREHENSIVE METABOLIC 21950 AGAP 8 mmol/L 2018 Unknown FREE T4 48767 T4 Free 0.86 ng/dL 12/09/2018 Unknown COMPLETE BLOOD COUNT 9169504 WBC 6.8 10e9/L 04/17/20 17 Unknown COMPLETE BLOOD COUNT 9009574 RBC 3.86 10e12/L 2016 Unknown COMPLETE BLOOD COUNT 1409101 HEMOGLOBIN 9.8 g/dL 04/17/20 17 Unknown COMPLETE BLOOD COUNT 3022125 HEMATOCRIT 31.1 % 04/17/20 17 Unknown COMPLETE BLOOD COUNT 8060325 MCV 80.6 fL 7 Unknown COMPLETE BLOOD COUNT 9412252 MCH 25.4 pg 7 Unknown COMPLETE BLOOD COUNT 3210926 MCHC 31.5 g/dL 7 Unknown COMPLETE BLOOD COUNT 8778564 PLATELET COUNT 247 10e9/L Unknown COMPLETE BLOOD COUNT 5371015 Mean Plt Volume 9.7 fL Unknown COMPLETE BLOOD COUNT 5763176 Neut Auto 74.1 % 7 Unknown COMPLETE BLOOD COUNT 9542218 Lymph Auto 12.0 % 04/17/20 17 Unknown COMPLETE BLOOD COUNT 7340924 [place] Auto 10.8 % 7 Unknown COMPLETE BLOOD COUNT 2315251 RDW 15.9 % 7 Unknown COMPLETE BLOOD COUNT 4395281 Eos Auto 2.5 % 7 Unknown COMPLETE BLOOD COUNT 3194958 Baso Auto 0.6 % 7 Unknown COMPLETE BLOOD COUNT 1667210 Neutrophil Abs 5.04 10e9/L Unknown COMPLETE BLOOD COUNT 1616550 Lymphocyte Abs 0.82 10e9/L Unknown COMPLETE BLOOD COUNT 7882746 Monocyte Abs 0.73 10e9/L 03/25 Unknown COMPLETE BLOOD COUNT 0513353 Eosinophil Abs 0.17 10e9/L Unknown COMPLETE BLOOD COUNT 6177144 RDW-SD 44.4 fL 7 Unknown COMPLETE BLOOD COUNT 3103438 Basophil Abs 0.04 10e9/L 03/25 Unknown MEAN GLUC 9662717 Calc Mean Gluc 223 mg/dL 04/17/2017 Unkn own GFR CALC 7936552 GFR Non Afr Amr >60 mL/min 04/17/2017 Un known GFR CALC 0535601 GFR Afr Amr >60 mL/min 04/17/2017 Unknow n GLYCOSYLATED HEMOGLOBIN TEST 78068 Hgb A1c 67889-6 9.4 % 0 04/17/2017 Unknown IRON 09367 Iron 37 ug/dL 04/17/2017 Unknown VITAMIN B 12 26370 VITAMIN B12 280 pg/mL 04/17/2017 Unkn own THYROID STIMULATING HORMONE 92641 TSH 2.481 uIU/mL 04/17/2017 Unknown COMPREHENSIVE METABOLIC 34119 AST 13 U/L 2016 Unknown COMPREHENSIVE METABOLIC 31712 ALT 12 U/L 2016 Unknown COMPREHENSIVE METABOLIC 47543 BUN 18 mg/dL 2016 Unknown COMPREHENSIVE METABOLIC 34243 ALBUMIN 4.7 g/dL 2016 Unknown COMPREHENSIVE METABOLIC 08362 CHLORIDE 103 mmol/L 04/17 Unknown COMPREHENSIVE METABOLIC 78355 Bili Total 0.4 mg/dL 04/17 Unknown COMPREHENSIVE METABOLIC 30447 ALK PHOS 49 U/L 2016 Unknown COMPREHENSIVE METABOLIC 09526 SODIUM 140 mmol/L 04/17 Unknown COMPREHENSIVE METABOLIC 87455 CREATININE 1.14 mg/dL 03/25 Unknown COMPREHENSIVE METABOLIC 35218 CALCIUM 9.4 mg/dL 2016 Unknown COMPREHENSIVE METABOLIC 29531 POTASSIUM 4.4 mmol/L 04/17 Unknown COMPREHENSIVE METABOLIC 18358 Total Protein 6.7 g/dL Unknown COMPREHENSIVE METABOLIC 73840 Glucose 266 mg/dL 2016 Unknown COMPREHENSIVE METABOLIC 47652 Bicarbonate 25 mmol/L 03/25 Unknown COMPREHENSIVE METABOLIC 54188 AGAP 12 mmol/L 2016 Unknown FERRITIN 55701 FERRITIN 10.0 ng/mL 04/17/2017 Unknown COMPLETE BLOOD COUNT 0442365 WBC 6.8 10e9/L 12/22/19 17 Unknown COMPLETE BLOOD COUNT 9045215 RBC 3.70 10e12/L 2016 Unknown COMPLETE BLOOD COUNT 4898699 HEMOGLOBIN 8.0 g/dL 12/22/19 17 Unknown COMPLETE BLOOD COUNT 7489444 HEMATOCRIT 26.7 % 12/22/19 17 Unknown COMPLETE BLOOD COUNT 3673411 MCV 72.2 fL 7 Unknown COMPLETE BLOOD COUNT 7578746 MCH 21.6 pg 7 Unknown COMPLETE BLOOD COUNT 8534211 MCHC 30.0 g/dL 7 Unknown COMPLETE BLOOD COUNT 2729596 PLATELET COUNT 290 10e9/L Unknown COMPLETE BLOOD COUNT 0897176 Mean Plt Volume 9.3 fL Unknown COMPLETE BLOOD COUNT 9803886 Neut Auto 80.2 % 7 Unknown COMPLETE BLOOD COUNT 7069241 Lymph Auto 9.8 % 12/22/19 17 Unknown COMPLETE BLOOD COUNT 0141550 [place] Auto 8.1 % 7 Unknown COMPLETE BLOOD COUNT 9184705 RDW 17.4 % 7 Unknown COMPLETE BLOOD COUNT 8827737 Eos Auto 1.5 % 7 Unknown COMPLETE BLOOD COUNT 2570177 Baso Auto 0.4 % 7 Unknown COMPLETE BLOOD COUNT 1530214 Neutrophil Abs 5.45 10e9/L Unknown COMPLETE BLOOD COUNT 6225336 Lymphocyte Abs 0.67 10e9/L Unknown COMPLETE BLOOD COUNT 2520957 Monocyte Abs 0.55 10e9/L 11/24 Unknown COMPLETE BLOOD COUNT 2640589 Eosinophil Abs 0.10 10e9/L Unknown COMPLETE BLOOD COUNT 3925763 RDW-SD 44.1 fL 7 Unknown COMPLETE BLOOD COUNT 2217311 Basophil Abs 0.03 10e9/L 11/24 Unknown COMPLETE BLOOD COUNT 6341746 WBC 7.6 10e9/L 12/13/19 17 Unknown COMPLETE BLOOD COUNT 3617544 RBC 3.71 10e12/L 2016 Unknown COMPLETE BLOOD COUNT 5631054 HEMOGLOBIN 8.0 g/dL 12/13/19 17 Unknown COMPLETE BLOOD COUNT 8309534 HEMATOCRIT 27.3 % 12/13/19 17 Unknown COMPLETE BLOOD COUNT 7810764 MCV 73.6 fL 7 Unknown COMPLETE BLOOD COUNT 2502571 MCH 21.6 pg 7 Unknown COMPLETE BLOOD COUNT 7218371 MCHC 29.3 g/dL 7 Unknown COMPLETE BLOOD COUNT 3517481 PLATELET COUNT 330 10e9/L Unknown COMPLETE BLOOD COUNT 5753854 Mean Plt Volume 9.7 fL Unknown COMPLETE BLOOD COUNT 9525662 Neut Auto 73.2 % 7 Unknown COMPLETE BLOOD COUNT 5850382 Lymph Auto 14.5 % 12/13/19 17 Unknown COMPLETE BLOOD COUNT 0068942 [place] Auto 10.5 % 7 Unknown COMPLETE BLOOD COUNT 1040345 RDW 17.3 % 7 Unknown COMPLETE BLOOD COUNT 3125860 Eos Auto 1.3 % 7 Unknown COMPLETE BLOOD COUNT 8989748 Baso Auto 0.5 % 7 Unknown COMPLETE BLOOD COUNT 6306262 Neutrophil Abs 5.56 10e9/L Unknown COMPLETE BLOOD COUNT 7632392 Lymphocyte Abs 1.10 10e9/L Unknown COMPLETE BLOOD COUNT 0229174 Monocyte Abs 0.80 10e9/L 11/23 Unknown COMPLETE BLOOD COUNT 1412923 Eosinophil Abs 0.10 10e9/L Unknown COMPLETE BLOOD COUNT 8226507 RDW-SD 45.2 fL 7 Unknown COMPLETE BLOOD COUNT 7258462 Basophil Abs 0.04 10e9/L 11/23 Unknown IRON 12157 Iron 69 ug/dL 03/09/2016 Unknown VITAMIN B 12 71658 VITAMIN B12 311 pg/mL 03/09/2016 Unkn own MEAN GLUC 0553072 Mean Glucose 260 mg/dL 03/07/2016 Unknow n GLYCOSYLATED HEMOGLOBIN TEST 27064 Hgb A1c 49672-1 10.7 % 0 03/07/2016 Unknown COMPREHENSIVE METABOLIC 99489 AST 14 U/L 2015 Unknown COMPREHENSIVE METABOLIC 01757 ALT 21 U/L 2015 Unknown COMPREHENSIVE METABOLIC 38584 BUN 27 mg/dL 2015 Unknown COMPREHENSIVE METABOLIC 76572 ALBUMIN 4.5 g/dL 2015 Unknown COMPREHENSIVE METABOLIC 09567 CHLORIDE 101 mmol/L 03/06 Unknown COMPREHENSIVE METABOLIC 91199 Bili Total 0.4 mg/dL 03/06 Unknown COMPREHENSIVE METABOLIC 22064 ALK PHOS 49 U/L 2015 Unknown COMPREHENSIVE METABOLIC 30380 SODIUM 136 mmol/L 03/06 Unknown COMPREHENSIVE METABOLIC 80666 CREATININE 1.16 mg/dL 02/22 Unknown COMPREHENSIVE METABOLIC 81282 CALCIUM 9.9 mg/dL 2015 Unknown COMPREHENSIVE METABOLIC 15335 POTASSIUM 4.5 mmol/L 03/06 Unknown COMPREHENSIVE METABOLIC 73835 Total Protein 6.7 g/dL Unknown COMPREHENSIVE METABOLIC 69523 Glucose 245 mg/dL 2015 Unknown COMPREHENSIVE METABOLIC 08475 Bicarbonate 24 mmol/L 02/22 Unknown COMPREHENSIVE METABOLIC 38616 AGAP 11 mmol/L 2015 Unknown THYROID STIMULATING HORMONE 99931 TSH 0.775 uIU/mL 03/06/2016 Unknown TESTOSTERONE TOTAL 69143 Testos Total 96 ng/dL 03/06/20 16 Unknown LIPID GROUP 85195 Cholesterol 146 mg/dL 03/06/2016 Unkno wn LIPID GROUP 29676 Triglyceride 249 mg/dL 03/06/2016 Unkn own LIPID GROUP 14445 HDL CHOLESTEROL 46 mg/dL 03/06/2016 U nknown LIPID GROUP 95332 Chol/HDL Ratio 3.17 ratio 03/06/2016 U nknown LIPID GROUP 86850 NON-HDL Chol 100 mg/dL 03/06/2016 Unkn own LIPID GROUP 04941 LDL Cholesterol 50 mg/dL 03/06/2016 U nknown COMPLETE BLOOD COUNT 8675088 WBC 11.2 10e9/L 016 Unknown COMPLETE BLOOD COUNT 3050114 RBC 3.94 10e12/L 2015 Unknown COMPLETE BLOOD COUNT 0444899 HEMOGLOBIN 11.4 g/dL 03/06/20 16 Unknown COMPLETE BLOOD COUNT 2526781 HEMATOCRIT 33.7 % 03/06/20 16 Unknown COMPLETE BLOOD COUNT 0598452 MCV 85.5 fL 6 Unknown COMPLETE BLOOD COUNT 8725794 MCH 28.9 pg 6 Unknown COMPLETE BLOOD COUNT 7540535 MCHC 33.8 g/dL 6 Unknown COMPLETE BLOOD COUNT 2626625 PLATELET COUNT 204 10e9/L Unknown COMPLETE BLOOD COUNT 3106391 Mean Plt Volume 10.1 fL Unknown COMPLETE BLOOD COUNT 2810501 Neut Auto 85.9 % 6 Unknown COMPLETE BLOOD COUNT 8455465 Lymph Auto 6.8 % 03/06/20 16 Unknown COMPLETE BLOOD COUNT 9233039 [place] Auto 7.0 % 6 Unknown COMPLETE BLOOD COUNT 7075113 RDW 13.7 % 6 Unknown COMPLETE BLOOD COUNT 9145879 Eos Auto 0.1 % 6 Unknown COMPLETE BLOOD COUNT 6705310 Baso Auto 0.2 % 6 Unknown COMPLETE BLOOD COUNT 7086882 Neutrophil Abs 9.62 10e9/L Unknown COMPLETE BLOOD COUNT 0659714 Lymphoctye Abs 0.76 10e9/L Unknown COMPLETE BLOOD COUNT 3935361 Monocyte Abs 0.78 10e9/L 02/22 Unknown COMPLETE BLOOD COUNT 5426302 Eosinophil Abs 0.01 10e9/L Unknown COMPLETE BLOOD COUNT 0682016 RDW-SD 41.9 fL 6 Unknown COMPLETE BLOOD COUNT 8699533 Basophil Abs 0.02 10e9/L 02/22 Unknown FREE T4 38632 T4 Free 0.89 ng/dL 03/06/2016 Unknown GFR CALC 3780539 GFR Non Afr Amr >60 mL/min 03/06/2016 Un known GFR CALC 6399163 GFR Afr Amr >60 mL/min 03/06/2016 Unknow n PSA EQUIMOLAR JONATAN 83902 PSA Total 0.78 ng/mL 6 Unknown FREE T4 35604 FREE T4 0.90 NG/DL 07/01/2015 Unknown LIPID GROUP 21485 HDL TEST 44 MG/DL 07/01/2015 Unknown LIPID GROUP 53458 TRIG 303 MG/DL 07/01/2015 Unknown LIPID GROUP 95172 TEST LDL 56 MG/DL 07/01/2015 Unknown LIPID GROUP 86502 CHOL 161 MG/DL 07/01/2015 Unknown LIPID GROUP 44989 RCHOL/HDL 3.66 RATIO 07/01/2015 Unknow n LIPID GROUP 51880 NON-HDL CH 117 MG/DL 07/01/2015 Unknow n THYROID STIMULATING HORMONE 58177 TSH 1.783 uIU/ML 07/01/2015 Unknown COMPLETE BLOOD COUNT 8420547 WBC 6.6 10e9/L 07/01/20 15 Unknown COMPLETE BLOOD COUNT 7436248 RBC 4.18 10e12/L 2014 Unknown COMPLETE BLOOD COUNT 4052664 HGB 12.2 g/dL 5 Unknown COMPLETE BLOOD COUNT 6636752 HCT DET 37.0 % 5 Unknown COMPLETE BLOOD COUNT 8681704 MCV 88.5 fL 5 Unknown COMPLETE BLOOD COUNT 2166721 MCH 29.2 pg 5 Unknown COMPLETE BLOOD COUNT 8083065 MCHC 33.0 g/dL 5 Unknown COMPLETE BLOOD COUNT 1147692 PLT 224 10e9/L 07/01/20 15 Unknown COMPLETE BLOOD COUNT 4878022 MPV 10.4 fL 5 Unknown COMPLETE BLOOD COUNT 7505245 SUSIE % 72.6 % 5 Unknown COMPLETE BLOOD COUNT 6737699 LY % 14.1 % 5 Unknown COMPLETE BLOOD COUNT 4548796 MON % 10.2 % 5 Unknown COMPLETE BLOOD COUNT 7303241 EOS % 2.6 % 5 Unknown COMPLETE BLOOD COUNT 0206156 BASO % 0.5 % 5 Unknown COMPLETE BLOOD COUNT 4821722 RDW 14.1 % 5 Unknown COMPLETE BLOOD COUNT 1161907 ABS SUSIE 4.79 10e9/L 015 Unknown COMPLETE BLOOD COUNT 4538940 ABS LYMPH 0.93 10e9/L 015 Unknown COMPLETE BLOOD COUNT 3736474 ABS MONO 0.67 10e9/L 015 Unknown COMPLETE BLOOD COUNT 9709698 ABS EOS 0.17 10e9/L 015 Unknown COMPLETE BLOOD COUNT 4896340 ABS BASO 0.03 10e9/L 015 Unknown COMPLETE BLOOD COUNT 8045356 RDW-SD 43.9 fL 5 Unknown PSA EQUIMOLAR JONATAN 43863 PSA EQ 0.73 NG/ML 5 Unknown COMPREHENSIVE METABOLIC 58867 AST 24 U/L 2014 Unknown COMPREHENSIVE METABOLIC 42172 ALT 26 IU/L 2014 Unknown COMPREHENSIVE METABOLIC 52634 BUN 26 MG/DL 2014 Unknown COMPREHENSIVE METABOLIC 63567 ALBUMIN 4.6 GM/DL 2014 Unknown COMPREHENSIVE METABOLIC 87508 CHLORIDE 102 MMOL/L 06/01 Unknown COMPREHENSIVE METABOLIC 05164 BILI TOT 0.5 MG/DL 2014 Unknown COMPREHENSIVE METABOLIC 51835 ALK PHOS 56 U/L 2014 Unknown COMPREHENSIVE METABOLIC 37763 SODIUM 136 MMOL/L 06/01 Unknown COMPREHENSIVE METABOLIC 14338 CREATININE 1.16 MG/DL 04/2015 Unknown COMPREHENSIVE METABOLIC 70593 CALCIUM 9.8 MG/DL 2014 Unknown COMPREHENSIVE METABOLIC 80054 POTASSIUM 4.6 MMOL/L 06/01 Unknown COMPREHENSIVE METABOLIC 41552 PROT TOT 7.4 GM/DL 2014 Unknown COMPREHENSIVE METABOLIC 14090 Glucose 223 MG/DL 2014 Unknown COMPREHENSIVE METABOLIC 69265 BICARB 27 MMOL/L 2014 Unknown COMPREHENSIVE METABOLIC 77747 ANION GAP 7 MEQ/L 2014 Unknown GFR CALC 1932209 GFR AA >60 ML/MIN 06/01/2015 Unknown GFR CALC 6468795 GFR NON-AA >60 ML/MIN 06/01/2015 Unknown GLYCOSYLATED HEMOGLOBIN TEST 89005 A1C HPLC 85722-6 8.9 % 0 06/01/2015 Unknown GFR CALC 4794145 GFR AA >60 ML/MIN 02/25/2015 Unknown GFR CALC 8346743 GFR NON-AA >60 ML/MIN 02/25/2015 Unknown COMPREHENSIVE METABOLIC 17601 AST 24 U/L 2014 Unknown COMPREHENSIVE METABOLIC 91026 ALT 25 IU/L 2014 Unknown COMPREHENSIVE METABOLIC 23339 BUN 14 MG/DL 2014 Unknown COMPREHENSIVE METABOLIC 94476 ALBUMIN 4.5 GM/DL 2014 Unknown COMPREHENSIVE METABOLIC 60212 CHLORIDE 99 MMOL/L 2014 Unknown COMPREHENSIVE METABOLIC 96411 BILI TOT 0.5 MG/DL 2014 Unknown COMPREHENSIVE METABOLIC 06687 ALK PHOS 48 U/L 2014 Unknown COMPREHENSIVE METABOLIC 85835 SODIUM 136 MMOL/L 02/25 Unknown COMPREHENSIVE METABOLIC 19723 CREATININE 0.97 MG/DL 12/2014 Unknown COMPREHENSIVE METABOLIC 91803 CALCIUM 9.9 MG/DL 2014 Unknown COMPREHENSIVE METABOLIC 35530 POTASSIUM 4.4 MMOL/L 02/25 Unknown COMPREHENSIVE METABOLIC 44735 PROT TOT 7.1 GM/DL 2014 Unknown COMPREHENSIVE METABOLIC 78866 Glucose 171 MG/DL 2014 Unknown COMPREHENSIVE METABOLIC 35037 BICARB 25 MMOL/L 2014 Unknown COMPREHENSIVE METABOLIC 30785 ANION GAP 12 MEQ/L 2014 Unknown PROTEIN/CREAT URINE WITH RATIO 32006|49306 PROT R U 19 MG/D L 08/27/2014 Unknown PROTEIN/CREAT URINE WITH RATIO 32293|05714 CREAT R U 111 MG/ DL 08/27/2014 Unknown PROTEIN/CREAT URINE WITH RATIO 07289|07464 XRATIO P/C 171 MG /G 08/27/2014 Unknown MICROALBUMIN URINE RANDOM 37436 MICRL MG/L 34.7 MG/L 12/2013 Unknown MICROALBUMIN URINE RANDOM 16148 XM.ALB/CRE 32.7 MG/GCR 1 10/28/2013 Unknown MICROALBUMIN URINE RANDOM 16171 CREAT MG/D 106 MG/DL 12/2013 Unknown MICROALBUMIN URINE RANDOM 21945 CRE/100 1.06 G/L 12/2013 Unknown COMPLETE BLOOD COUNT [id number] WBC 7.1 10e9/L 08/05/20 14 Unknown COMPLETE BLOOD COUNT 1568002 RBC 4.35 10e12/L 2013 Unknown COMPLETE BLOOD COUNT 3268939 HGB 12.9 g/dL 4 Unknown COMPLETE BLOOD COUNT 7264972 HCT DET 39.4 % 4 Unknown COMPLETE BLOOD COUNT 6583859 MCV 90.6 fL 4 Unknown COMPLETE BLOOD COUNT [id number] MCH 29.7 pg 4 Unknown COMPLETE BLOOD COUNT [id number] MCHC 32.7 g/dL 4 Unknown COMPLETE BLOOD COUNT 6298106 PLT 240 10e9/L 08/05/20 14 Unknown COMPLETE BLOOD COUNT 1321209 MPV 10.3 fL 4 Unknown COMPLETE BLOOD COUNT [id number] SUSIE % 70.0 % 4 Unknown COMPLETE BLOOD COUNT [id number] LY % 16.4 % 4 Unknown COMPLETE BLOOD COUNT [id number] MON % 9.2 % 4 Unknown COMPLETE BLOOD COUNT [id number] EOS % 3.8 % 4 Unknown COMPLETE BLOOD COUNT [id number] BASO % 0.6 % 4 Unknown COMPLETE BLOOD COUNT 3452212 RDW 13.4 % 4 Unknown COMPLETE BLOOD COUNT [id number] ABS SUSIE 4.97 10e9/L 014 Unknown COMPLETE BLOOD COUNT [id number] ABS LYMPH 1.16 10e9/L 014 Unknown COMPLETE BLOOD COUNT [id number] ABS MONO 0.65 10e9/L 014 Unknown COMPLETE BLOOD COUNT [id number] ABS EOS 0.27 10e9/L 014 Unknown COMPLETE BLOOD COUNT [id number] ABS BASO 0.04 10e9/L 014 Unknown COMPLETE BLOOD COUNT 7015461 RDW-SD 43.3 fL 4 Unknown FREE T4 31802 FREE T4 1.02 NG/DL 08/05/2014 Unknown GFR CALC 9960140 GFR AA >60 ML/MIN 08/05/2014 Unknown GFR CALC 5386374 GFR NON-AA >60 ML/MIN 08/05/2014 Unknown GLYCOSYLATED HEMOGLOBIN TEST 96500 A1C HPLC 65699-7 7.7 % 1 10/05/2013 Unknown COMPREHENSIVE METABOLIC 61384 AST 19 U/L 2013 Unknown COMPREHENSIVE METABOLIC 27976 ALT 21 IU/L 2013 Unknown COMPREHENSIVE METABOLIC 81158 BUN 25 MG/DL 2013 Unknown COMPREHENSIVE METABOLIC 42860 ALBUMIN 4.6 GM/DL 2013 Unknown COMPREHENSIVE METABOLIC 15227 CHLORIDE 103 MMOL/L 08/05 Unknown COMPREHENSIVE METABOLIC 97729 BILI TOT 0.4 MG/DL 2013 Unknown COMPREHENSIVE METABOLIC 17777 ALK PHOS 45 U/L 2013 Unknown COMPREHENSIVE METABOLIC 44642 SODIUM 138 MMOL/L 08/05 Unknown COMPREHENSIVE METABOLIC 89902 CREATININE 1.01 MG/DL 07/25 Unknown COMPREHENSIVE METABOLIC 12697 CALCIUM 9.8 MG/DL 2013 Unknown COMPREHENSIVE METABOLIC 99840 POTASSIUM 4.7 MMOL/L 08/05 Unknown COMPREHENSIVE METABOLIC 35418 PROT TOT 7.0 GM/DL 2013 Unknown COMPREHENSIVE METABOLIC 50765 Glucose 145 MG/DL 2013 Unknown COMPREHENSIVE METABOLIC 14511 BICARB 27 MMOL/L 2013 Unknown COMPREHENSIVE METABOLIC 58299 ANION GAP 8 MEQ/L 2013 Unknown THYROID STIMULATING HORMONE 94941 TSH 1.922 uIU/ML 08/05/2014 Unknown LIPID GROUP 77793 HDL TEST 47 MG/DL 08/05/2014 Unknown LIPID GROUP 32096 TRIG 224 MG/DL 08/05/2014 Unknown LIPID GROUP 05209 TEST LDL 125 MG/DL 08/05/2014 Unknown LIPID GROUP 67586 CHOL 217 MG/DL 08/05/2014 Unknown LIPID GROUP 03893 RCHOL/HDL 4.62 RATIO 08/05/2014 Unknow n LIPID GROUP 98784 NON-HDL CH 170 MG/DL 08/05/2014 Unknow n MYCOPLASMA ANTIBODY, IFA [id number] MYCO G IFA 1:256 03/24 Unknown MYCOPLASMA ANTIBODY, IFA [id number] MYCO M IFA <1:10 03/24 Unknown MYCOPLASMA ANTIBODY, IFA [id number] MYCO INTER SEE BELO 03/24 Unknown COMPLETE BLOOD COUNT [id number] WBC 8.3 10e9/L 04/09/20 13 Unknown COMPLETE BLOOD COUNT [id number] RBC 4.61 10e12/L 2012 Unknown COMPLETE BLOOD COUNT 7223846 HGB 13.9 g/dL 3 Unknown COMPLETE BLOOD COUNT 6159596 HCT DET 41.2 % 3 Unknown COMPLETE BLOOD COUNT 2334136 MCV 89.4 fL 3 Unknown COMPLETE BLOOD COUNT 5286404 MCH 30.2 pg 3 Unknown COMPLETE BLOOD COUNT 2848774 MCHC 33.7 g/dL 3 Unknown COMPLETE BLOOD COUNT 1977834 PLT 249 10e9/L 04/09/20 13 Unknown COMPLETE BLOOD COUNT 1414978 MPV 9.8 fL 3 Unknown COMPLETE BLOOD COUNT 1759582 SUSIE % 65.9 % 3 Unknown COMPLETE BLOOD COUNT 6977250 LY % 19.8 % 3 Unknown COMPLETE BLOOD COUNT 1253292 MON % 10.8 % 3 Unknown COMPLETE BLOOD COUNT [id number] EOS % 3.0 % 3 Unknown COMPLETE BLOOD COUNT [id number] BASO % 0.5 % 3 Unknown COMPLETE BLOOD COUNT 6810444 RDW 14.0 % 3 Unknown COMPLETE BLOOD COUNT [id number] ABS SUSIE 5.47 10e9/L 013 Unknown COMPLETE BLOOD COUNT [id number] ABS LYMPH 1.64 10e9/L 013 Unknown COMPLETE BLOOD COUNT [id number] ABS MONO 0.90 10e9/L 013 Unknown COMPLETE BLOOD COUNT [id number] ABS EOS 0.25 10e9/L 013 Unknown COMPLETE BLOOD COUNT [id number] ABS BASO 0.04 10e9/L 013 Unknown COMPLETE BLOOD COUNT 6887125 RDW-SD 45.0 fL 3 Unknown URIC ACID 54846 URIC ACID 5.3 MG/DL 02/12/2013 Unknown FREE T4 82171 FREE T4 1.09 NG/DL 02/11/2013 Unknown COMPLETE BLOOD COUNT 0500348 WBC 6.3 10e9/L 02/12/20 13 Unknown COMPLETE BLOOD COUNT [id number] RBC 4.29 10e12/L 2012 Unknown COMPLETE BLOOD COUNT 5365528 HGB 13.1 g/dL 3 Unknown COMPLETE BLOOD COUNT 4457954 HCT DET 39.7 % 3 Unknown COMPLETE BLOOD COUNT 2973881 MCV 92.5 fL 3 Unknown COMPLETE BLOOD COUNT 1146574 MCH 30.5 pg 3 Unknown COMPLETE BLOOD COUNT 5255800 MCHC 33.0 g/dL 3 Unknown COMPLETE BLOOD COUNT 2993925 PLT 247 10e9/L 02/12/20 13 Unknown COMPLETE BLOOD COUNT 3634405 MPV 10.0 fL 3 Unknown COMPLETE BLOOD COUNT 7776482 SUSIE % 73.4 % 3 Unknown COMPLETE BLOOD COUNT 2364623 LY % 13.5 % 3 Unknown COMPLETE BLOOD COUNT 5801419 MON % 9.4 % 3 Unknown COMPLETE BLOOD COUNT 3757041 EOS % 2.9 % 3 Unknown COMPLETE BLOOD COUNT [id number] BASO % 0.8 % 3 Unknown COMPLETE BLOOD COUNT 3831823 RDW 13.8 % 3 Unknown COMPLETE BLOOD COUNT [id number] ABS SUSIE 4.62 10e9/L 013 Unknown COMPLETE BLOOD COUNT 3095073 ABS LYMPH 0.85 10e9/L 013 Unknown COMPLETE BLOOD COUNT 1306919 ABS MONO 0.59 10e9/L 013 Unknown COMPLETE BLOOD COUNT 6405349 ABS EOS 0.18 10e9/L 013 Unknown COMPLETE BLOOD COUNT [id number] ABS BASO 0.05 10e9/L 013 Unknown COMPLETE BLOOD COUNT [id number] RDW-SD 45.7 fL 3 Unknown HEMOGLOBIN A1C (GLYCOSYLATED) 5919880 A1C HPLC 53008-9 7.5 % 02/11/2013 Unknown THYROID STIMULATING HORMONE 73899 TSH 1.466 uIU/ML 02/11/2013 Unknown VITAMIN B 12 FOLIC ACID 80069|42420 VIT B 12 625 PG/ML 01/23 Unknown VITAMIN B 12 FOLIC ACID 34525|54037 FOLIC ACID 15.6 NG/ML Unknown COMPREHENSIVE METABOLIC 59132 AST 18 U/L 2012 Unknown COMPREHENSIVE METABOLIC 32857 ALT 21 IU/L 2012 Unknown COMPREHENSIVE METABOLIC 60211 BUN 25 MG/DL 2012 Unknown COMPREHENSIVE METABOLIC 99762 ALBUMIN 4.6 GM/DL 2012 Unknown COMPREHENSIVE METABOLIC 28943 CHLORIDE 103 MMOL/L 02/11 Unknown COMPREHENSIVE METABOLIC 49312 BILI TOT 0.3 MG/DL 2012 Unknown COMPREHENSIVE METABOLIC 65247 ALK PHOS 53 U/L 2012 Unknown COMPREHENSIVE METABOLIC 83786 SODIUM 136 MMOL/L 02/11 Unknown COMPREHENSIVE METABOLIC 09433 CREATININE 1.16 MG/DL 01/23 Unknown COMPREHENSIVE METABOLIC 71900 CALCIUM 10.0 MG/DL 02/11 Unknown COMPREHENSIVE METABOLIC 53650 POTASSIUM 4.9 MMOL/L 02/11 Unknown COMPREHENSIVE METABOLIC 89572 PROT TOT 7.0 GM/DL 2012 Unknown COMPREHENSIVE METABOLIC 49700 Glucose 192 MG/DL 2012 Unknown COMPREHENSIVE METABOLIC 48855 BICARB 26 MMOL/L 2012 Unknown COMPREHENSIVE METABOLIC 52998 ANION GAP 7 MEQ/L 2012 Unknown GFR CALC 0556434 GFR AA >60 ML/MIN 02/11/2013 Unknown GFR CALC 7344067 GFR NON-AA >60 ML/MIN 02/11/2013 Unknown C-REACTIVE PROTEIN (CRP) QUANT 61604 CRP 2.7 MG/DL 02/11/2013 Unknown GFR CALC 1873077 GFR AA >60 ML/MIN 09/19/2012 Unknown GFR CALC 3374133 GFR NON-AA >60 ML/MIN 09/19/2012 Unknown HEMOGLOBIN A1C (GLYCOSYLATED) 2357316 A1C HPLC 39082-5 7.2 % 09/19/2012 Unknown COMPREHENSIVE METABOLIC 09880 AST 13 U/L 2011 Unknown COMPREHENSIVE METABOLIC 95817 ALT 17 IU/L 2011 Unknown COMPREHENSIVE METABOLIC 40052 BUN 25 MG/DL 2011 Unknown COMPREHENSIVE METABOLIC 82927 ALBUMIN 4.5 GM/DL 2011 Unknown COMPREHENSIVE METABOLIC 51639 CHLORIDE 104 MMOL/L 09/19 Unknown COMPREHENSIVE METABOLIC 08584 BILI TOT 0.3 MG/DL 2011 Unknown COMPREHENSIVE METABOLIC 90227 ALK PHOS 43 U/L 2011 Unknown COMPREHENSIVE METABOLIC 76309 SODIUM 139 MMOL/L 09/19 Unknown COMPREHENSIVE METABOLIC 26132 CREATININE 1.10 MG/DL 08/25 Unknown COMPREHENSIVE METABOLIC 34606 CALCIUM 9.8 MG/DL 2011 Unknown COMPREHENSIVE METABOLIC 53727 POTASSIUM 4.8 MMOL/L 09/19 Unknown COMPREHENSIVE METABOLIC 71265 PROT TOT 6.5 GM/DL 2011 Unknown COMPREHENSIVE METABOLIC 53126 Glucose 148 MG/DL 2011 Unknown COMPREHENSIVE METABOLIC 35290 BICARB 25 MMOL/L 2011 Unknown COMPREHENSIVE METABOLIC 58776 ANION GAP 10 MEQ/L 2011 Unknown LIPID GROUP 48559 HDL TEST 44 MG/DL 09/19/2012 Unknown LIPID GROUP 50659 TRIG 318 MG/DL 09/19/2012 Unknown LIPID GROUP 57795 TEST LDL 100 MG/DL 09/19/2012 Unknown LIPID GROUP 76783 CHOL 208 MG/DL 09/19/2012 Unknown LIPID GROUP 71317 RCHOL/HDL 4.73 RATIO 09/19/2012 Unknow n FREE T4 13179 FREE T4 0.87 NG/DL 05/06/2012 Unknown GLYCOSYLATED HEMOGLOBIN TEST 13263 A1C [facility] 97411-5 6.4 % 0 05/06/2012 Unknown LIPID GROUP 16592 HDL TEST 44 MG/DL 05/06/2012 Unknown LIPID GROUP 11440 TRIG 177 MG/DL 05/06/2012 Unknown LIPID GROUP 76300 TEST LDL 113 MG/DL 05/06/2012 Unknown LIPID GROUP 60234 CHOL 192 MG/DL 05/06/2012 Unknown LIPID GROUP 40784 RCHOL/HDL 4.36 RATIO 05/06/2012 Unknow n THYROID STIMULATING HORMONE 52230 TSH 1.151 uIU/ML 05/06/2012 Unknown COMPLETE BLOOD COUNT 08348 WBC 7.8 10e9/L 05/06/20 12 Unknown COMPLETE BLOOD COUNT 26459 RBC 4.31 10e12/L 2011 Unknown COMPLETE BLOOD COUNT 32236 HGB 12.8 g/dL 2 Unknown COMPLETE BLOOD COUNT 69380 HCT DET 39.1 % 2 Unknown COMPLETE BLOOD COUNT 21603 MCV 90.7 fL 2 Unknown COMPLETE BLOOD COUNT 45258 MCH 29.7 pg 2 Unknown COMPLETE BLOOD COUNT 79537 MCHC 32.7 g/dL 2 Unknown COMPLETE BLOOD COUNT 34017 PLT 207 10e9/L 05/06/20 12 Unknown COMPLETE BLOOD COUNT 10210 MPV 10.2 fL 2 Unknown COMPLETE BLOOD COUNT 99541 SUSIE % 74.2 % 2 Unknown COMPLETE BLOOD COUNT 61162 LY % 12.8 % 2 Unknown COMPLETE BLOOD COUNT 67428 MON % 11.0 % 2 Unknown COMPLETE BLOOD COUNT 12668 EOS % 1.7 % 2 Unknown COMPLETE BLOOD COUNT 92948 BASO % 0.3 % 2 Unknown COMPLETE BLOOD COUNT 51372 RDW 13.7 % 2 Unknown COMPLETE BLOOD COUNT 49536 ABS SUSIE 5.79 10e9/L 012 Unknown COMPLETE BLOOD COUNT 25876 ABS LYMPH 1.00 10e9/L 012 Unknown COMPLETE BLOOD COUNT 18425 ABS MONO 0.86 10e9/L 012 Unknown COMPLETE BLOOD COUNT 60073 ABS EOS 0.13 10e9/L 012 Unknown COMPLETE BLOOD COUNT 18429 ABS BASO 0.02 10e9/L 012 Unknown COMPLETE BLOOD COUNT 97542 RDW-SD 44.4 fL 2 Unknown COMPREHENSIVE METABOLIC 96646 AST 13 U/L 2011 Unknown COMPREHENSIVE METABOLIC 55912 ALT 14 IU/L 2011 Unknown COMPREHENSIVE METABOLIC 17825 BUN 17 MG/DL 2011 Unknown COMPREHENSIVE METABOLIC 76710 ALBUMIN 4.5 GM/DL 2011 Unknown COMPREHENSIVE METABOLIC 27647 CHLORIDE 101 MMOL/L 05/06 Unknown COMPREHENSIVE METABOLIC 21313 BILI TOT 0.5 MG/DL 2011 Unknown COMPREHENSIVE METABOLIC 58302 ALK PHOS 42 U/L 2011 Unknown COMPREHENSIVE METABOLIC 00157 SODIUM 141 MMOL/L 05/06 Unknown COMPREHENSIVE METABOLIC 44507 CREATININE 1.02 MG/DL 04/24 Unknown COMPREHENSIVE METABOLIC 36266 CALCIUM 9.7 MG/DL 2011 Unknown COMPREHENSIVE METABOLIC 49592 POTASSIUM 4.6 MMOL/L 05/06 Unknown COMPREHENSIVE METABOLIC 55867 PROT TOT 6.5 GM/DL 2011 Unknown COMPREHENSIVE METABOLIC 60150 Glucose 139 MG/DL 2011 Unknown COMPREHENSIVE METABOLIC 57688 BICARB 29 MMOL/L 2011 Unknown COMPREHENSIVE METABOLIC 94359 ANION GAP 11 MEQ/L 2011 Unknown GFR CALC 7910597 GFR AA >60 ML/MIN 05/06/2012 Unknown GFR CALC 2705617 GFR NON-AA 54.0L ML/MIN 05/06/2012 Unkno wn GLYCOSYLATED HEMOGLOBIN TEST 96663 A1C HPLC 53892-1 6.6 % 1 09/30/2010 Unknown FREE T4 32485 FREE T4 1.00 NG/DL 07/26/2011 Unknown LIPID GROUP 26605 HDL TEST 40 MG/DL 07/26/2011 Unknown LIPID GROUP 34618 TRIG 136 MG/DL 07/26/2011 Unknown LIPID GROUP 68268 TEST LDL 126 MG/DL 07/26/2011 Unknown LIPID GROUP 80766 CHOL 193 MG/DL 07/26/2011 Unknown LIPID GROUP 85420 RCHOL/HDL 4.83 RATIO 07/26/2011 Unknow n COMPREHENSIVE METABOLIC 55838 AST 15 U/L 2010 Unknown COMPREHENSIVE METABOLIC 42862 ALT 13 IU/L 2010 Unknown COMPREHENSIVE METABOLIC 14444 BUN 17 MG/DL 2010 Unknown COMPREHENSIVE METABOLIC 18828 ALBUMIN 4.4 GM/DL 2010 Unknown COMPREHENSIVE METABOLIC 69476 CHLORIDE 102 MMOL/L 07/26 Unknown COMPREHENSIVE METABOLIC 83914 BILI TOT 0.5 MG/DL 2010 Unknown COMPREHENSIVE METABOLIC 20982 ALK PHOS 54 U/L 2010 Unknown COMPREHENSIVE METABOLIC 67104 SODIUM 138 MMOL/L 07/26 Unknown COMPREHENSIVE METABOLIC 42538 CREATININE 0.95 MG/DL 10/2010 Unknown COMPREHENSIVE METABOLIC 16997 CALCIUM 9.3 MG/DL 2010 Unknown COMPREHENSIVE METABOLIC 88092 POTASSIUM 4.3 MMOL/L 07/26 Unknown COMPREHENSIVE METABOLIC 39405 PROT TOT 6.7 GM/DL 2010 Unknown COMPREHENSIVE METABOLIC 86145 Glucose 116 MG/DL 2010 Unknown COMPREHENSIVE METABOLIC 42771 BICARB 28 MMOL/L 2010 Unknown COMPREHENSIVE METABOLIC 66046 ANION GAP 8 MEQ/L 2010 Unknown PSA EQUIMOLAR JONATAN 72633 PSA EQ 1.01 NG/ML 1 Unknown COMPLETE BLOOD COUNT 37433 WBC 6.4 10e9/L 07/26/20 11 Unknown COMPLETE BLOOD COUNT 94221 RBC 4.43 10e12/L 2010 Unknown COMPLETE BLOOD COUNT 54617 HGB 13.2 g/dL 1 Unknown COMPLETE BLOOD COUNT 76391 HCT DET 39.3 % 1 Unknown COMPLETE BLOOD COUNT 35938 MCV 88.7 fL 1 Unknown COMPLETE BLOOD COUNT 44559 MCH 29.8 pg 1 Unknown COMPLETE BLOOD COUNT 19419 MCHC 33.6 g/dL 1 Unknown COMPLETE BLOOD COUNT 84218 PLT 226 10e9/L 07/26/20 11 Unknown COMPLETE BLOOD COUNT 92363 MPV 9.9 fL 1 Unknown COMPLETE BLOOD COUNT 59246 SUSIE % 65.4 % 1 Unknown COMPLETE BLOOD COUNT 67531 LY % 19.7 % 1 Unknown COMPLETE BLOOD COUNT 10510 MON % 10.8 % 1 Unknown COMPLETE BLOOD COUNT 72669 EOS % 3.6 % 1 Unknown COMPLETE BLOOD COUNT 86437 BASO % 0.5 % 1 Unknown COMPLETE BLOOD COUNT 00493 RDW 13.2 % 1 Unknown COMPLETE BLOOD COUNT 08687 ABS SUSIE 4.19 10e9/L 011 Unknown COMPLETE BLOOD COUNT 35541 ABS LYMPH 1.26 10e9/L 011 Unknown COMPLETE BLOOD COUNT 06350 ABS MONO 0.69 10e9/L 011 Unknown COMPLETE BLOOD COUNT 56967 ABS EOS 0.23 10e9/L 011 Unknown COMPLETE BLOOD COUNT 45139 ABS BASO 0.03 10e9/L 011 Unknown COMPLETE BLOOD COUNT 29439 RDW-SD 41.7 fL 1 Unknown THYROID STIMULATING HORMONE 97170 TSH 1.345 uIU/ML 07/26/2011 Unknown GFR CALC 4798923 GFR AA >60 ML/MIN 07/26/2011 Unknown GFR CALC 1067066 GFR NON-AA >60 ML/MIN 07/26/2011 Unknown BRAIN NATRIURETIC PEPTIDE(BNP) 26472 BRAIN PEP 23 pg/mL 01/19/2011 Unknown CANCEL 1336589 CANCEL FOOTNOTE 01/18/2011 Unknown TESTOSTERONE TOTAL 49828 TESTOS TO 138 NG/DL 12/19/2010 Unknown COMPLETE BLOOD COUNT 93056 WBC 8.4 10e9/L 12/08/19 11 Unknown COMPLETE BLOOD COUNT 34920 RBC 4.40 10e12/L 2010 Unknown COMPLETE BLOOD COUNT 99049 HGB 13.3 g/dL 1 Unknown COMPLETE BLOOD COUNT 75992 HCT DET 39.8 % 1 Unknown COMPLETE BLOOD COUNT 50474 MCV 90.5 fL 1 Unknown COMPLETE BLOOD COUNT 88735 MCH 30.2 pg 1 Unknown COMPLETE BLOOD COUNT 98906 MCHC 33.4 g/dL 1 Unknown COMPLETE BLOOD COUNT 82211 PLT 201 10e9/L 12/08/19 11 Unknown COMPLETE BLOOD COUNT 11553 MPV 10.6 fL 1 Unknown COMPLETE BLOOD COUNT 29629 SUSIE % 72.5 % 1 Unknown COMPLETE BLOOD COUNT 57717 LY % 14.8 % 1 Unknown COMPLETE BLOOD COUNT 91184 MON % 10.6 % 1 Unknown COMPLETE BLOOD COUNT 18465 EOS % 1.7 % 1 Unknown COMPLETE BLOOD COUNT 89946 BASO % 0.4 % 1 Unknown COMPLETE BLOOD COUNT 78216 RDW 13.7 % 1 Unknown COMPLETE BLOOD COUNT 64818 ABS SUSIE 6.09 10e9/L 011 Unknown COMPLETE BLOOD COUNT 95255 ABS LYMPH 1.24 10e9/L 011 Unknown COMPLETE BLOOD COUNT 15809 ABS MONO 0.89 10e9/L 011 Unknown COMPLETE BLOOD COUNT 51626 ABS EOS 0.14 10e9/L 011 Unknown COMPLETE BLOOD COUNT 77611 ABS BASO 0.03 10e9/L 011 Unknown COMPLETE BLOOD COUNT 01332 RDW-SD 44.0 fL 1 Unknown LIPID GROUP 37059 HDL TEST 40 MG/DL 12/07/2010 Unknown LIPID GROUP 09909 TRIG 383 MG/DL 12/07/2010 Unknown LIPID GROUP 05870 TEST LDL 82 MG/DL 12/07/2010 Unknown LIPID GROUP 11071 CHOL 199 MG/DL 12/07/2010 Unknown LIPID GROUP 47911 RCHOL/HDL 4.98 RATIO 12/07/2010 Unknow n GFR CALC 8886177 GFR AA >60 ML/MIN 12/07/2010 Unknown GFR CALC 6567505 GFR NON-AA >60 ML/MIN 12/07/2010 Unknown COMPREHENSIVE METABOLIC 62524 AST 29 U/L 2010 Unknown COMPREHENSIVE METABOLIC 05288 ALT 39 IU/L 2010 Unknown COMPREHENSIVE METABOLIC 93831 BUN 17 MG/DL 2010 Unknown COMPREHENSIVE METABOLIC 32781 ALBUMIN 4.9 GM/DL 2010 Unknown COMPREHENSIVE METABOLIC 97991 CHLORIDE 100 MMOL/L 12/07 Unknown COMPREHENSIVE METABOLIC 79502 BILI TOT 0.3 MG/DL 2010 Unknown COMPREHENSIVE METABOLIC 09766 ALK PHOS 53 U/L 2010 Unknown COMPREHENSIVE METABOLIC 06442 SODIUM 137 MMOL/L 12/07 Unknown COMPREHENSIVE METABOLIC 15882 CREATININE 0.98 MG/DL 11/22 Unknown COMPREHENSIVE METABOLIC 58955 CALCIUM 9.5 MG/DL 2010 Unknown COMPREHENSIVE METABOLIC 97511 POTASSIUM 4.3 MMOL/L 12/07 Unknown COMPREHENSIVE METABOLIC 36969 PROT TOT 6.6 GM/DL 2010 Unknown COMPREHENSIVE METABOLIC 31624 Glucose 176 MG/DL 2010 Unknown COMPREHENSIVE METABOLIC 07687 BICARB 28 MMOL/L 2010 Unknown COMPREHENSIVE METABOLIC 49117 ANION GAP 9 MEQ/L 2010 Unknown PSA EQUIMOLAR JONATAN 16247 PSA EQ 0.65 NG/ML 1 Unknown HEMOGLOBIN A1C (GLYCOSYLATED) 55922 A1C HPLC 75787-9 6.9 % 12/07/2010 Unknown Procedures Procedure Codes Date THER/PROPH/DIAG INJ SC/IM CPT-4: 61163 12/25/2019 METHYLPREDNISOLONE INJECTION CPT-4: J2930 12/25/2019 FLU VACC PRSV FREE INC ANTIG 65 AND OLDER CPT-4: 01062 08/07/2019 FLU VACC PRSV FREE INC ANTIG 65 AND OLDER CPT-4: 55391 08/07/2019 ADMIN INFLUENZA VIRUS VAC CPT-4: G0008 08/07/2019 THER/PROPH/DIAG INJ SC/IM CPT-4: 47458 07/14/2019 METHYLPREDNISOLONE INJECTION CPT-4: J2930 07/14/2019 ROUTINE VENIPUNCTURE CPT-4: 15458 06/17/2019 ASSAY THYROID STIM HORMONE CPT-4: 08263 06/17/2019 COMPREHEN METABOLIC PANEL CPT-4: 83456 06/17/2019 COMPLETE CBC W/AUTO DIFF WBC CPT-4: 79149 06/17/2019 ASSAY OF IRON CPT-4: 65738 06/17/2019 VITAMIN B-12 CPT-4: 16848 06/17/2019 RBC SED RATE AUTOMATED CPT-4: 32424 06/17/2019 THER/PROPH/DIAG INJ SC/IM CPT-4: 74962 06/10/2019 THER/PROPH/DIAG INJ SC/IM CPT-4: 78383 06/02/2019 THER/PROPH/DIAG INJ SC/IM CPT-4: 20732 05/27/2019 THER/PROPH/DIAG INJ SC/IM CPT-4: 73077 05/12/2019 ROUTINE VENIPUNCTURE CPT-4: 71397 05/08/2019 COMPREHEN METABOLIC PANEL CPT-4: 17462 05/08/2019 COMPLETE CBC W/AUTO DIFF WBC CPT-4: 71808 05/08/2019 A1C HPLC CPT-4: 13541 05/08/2019 VITAMIN D TOTAL (25 HYDROXY) CPT-4: 10964 05/08/2019 ASSAY OF IRON CPT-4: 47101 05/08/2019 ASSAY OF FERRITIN CPT-4: 55794 05/08/2019 VITAMIN B-12 CPT-4: 15048 05/08/2019 THER/PROPH/DIAG INJ SC/IM CPT-4: 91302 03/21/2019 METHYLPREDNISOLONE INJECTION CPT-4: J2930 03/21/2019 THER/PROPH/DIAG INJ SC/IM CPT-4: 62200 03/13/2019 METHYLPREDNISOLONE INJECTION CPT-4: J2930 03/13/2019 THER/PROPH/DIAG INJ SC/IM CPT-4: 49401 12/25/2018 METHYLPREDNISOLONE INJECTION CPT-4: J2930 12/25/2018 ROUTINE VENIPUNCTURE CPT-4: 08726 12/09/2018 ASSAY OF FREE THYROXINE CPT-4: 30209 12/09/2018 ASSAY THYROID STIM HORMONE CPT-4: 89015 12/09/2018 COMPREHEN METABOLIC PANEL CPT-4: 89487 12/09/2018 COMPLETE CBC W/AUTO DIFF WBC CPT-4: 02159 12/09/2018 LIPID PANEL CPT-4: 98753 12/09/2018 A1C HPLC CPT-4: 77906 12/09/2018 PRESCRIP TRANSMIT VIA ERX SY CPT-4: G8553 08/21/2018 PRESCRIP TRANSMIT VIA ERX SY CPT-4: G8553 08/07/2018 THER/PROPH/DIAG INJ SC/IM CPT-4: 14824 05/23/2018 METHYLPREDNISOLONE INJECTION CPT-4: J2930 05/23/2018 PRESCRIP TRANSMIT VIA ERX SY CPT-4: G8553 05/02/2018 THER/PROPH/DIAG INJ SC/IM CPT-4: 58793 04/29/2018 METHYLPREDNISOLONE INJECTION CPT-4: J2930 04/29/2018 DEXAMETHASONE SODIUM PHOS CPT-4: J1100 04/22/2018 THER/PROPH/DIAG INJ SC/IM CPT-4: 12717 04/22/2018 TRIAMCINOLONE ACET INJ NOS CPT-4: J3301 04/22/2018 PRESCRIP TRANSMIT VIA ERX SY CPT-4: G8553 04/22/2018 PRESCRIP TRANSMIT VIA ERX SY CPT-4: G8553 01/23/2018 URINALYSIS NONAUTO W/O SCOPE CPT-4: 83932 01/02/2018 URINE CULTURE/ COLONY COUNT CPT-4: 95114 01/02/2018 PRESCRIP TRANSMIT VIA ERX SY CPT-4: G8553 01/02/2018 PRESCRIP TRANSMIT VIA ERX SY CPT-4: G8553 12/28/2017 PRESCRIP TRANSMIT VIA ERX SY CPT-4: G8553 12/21/2017 CEFTRIAXONE SODIUM INJECTION CPT-4: J0696 12/17/2017 THER/PROPH/DIAG INJ SC/IM CPT-4: 48454 12/17/2017 THER/PROPH/DIAG INJ SC/IM CPT-4: 41982 12/17/2017 TRIAMCINOLONE ACET INJ NOS CPT-4: J3301 12/17/2017 PRESCRIP TRANSMIT VIA ERX SY CPT-4: G8553 12/17/2017 DRAIN/INJECT JOINT/BURSA CPT-4: 79519 12/11/2017 TRIAMCINOLONE ACET INJ NOS CPT-4: J3301 12/11/2017 DEXAMETHASONE SODIUM PHOS CPT-4: J1100 12/11/2017 DESTRUCT PREMALG LESION (Cryosurgery) CPT-4: 77625 PRESCRIP TRANSMIT VIA ERX SY CPT-4: G8553 10/17/2017 DEXAMETHASONE SODIUM PHOS CPT-4: J1100 08/02/2017 THER/PROPH/DIAG INJ SC/IM CPT-4: 09042 08/02/2017 TRIAMCINOLONE ACET INJ NOS CPT-4: J3301 08/02/2017 PRESCRIP TRANSMIT VIA ERX SY CPT-4: G8553 08/02/2017 PNEUMOCOCCAL VACC 23 OLIVIA IM CPT-4: 70722 07/24/2017 ADMIN PNEUMOCOCCAL VACCINE CPT-4: G0009 07/24/2017 ALBUTEROL NON-COMP UNIT CPT-4: J7613 07/02/2017 AIRWAY INHALATION TREATMENT CPT-4: 34348 07/02/2017 THER/PROPH/DIAG INJ SC/IM CPT-4: 09422 07/02/2017 METHYLPREDNISOLONE INJECTION CPT-4: J2930 07/02/2017 PRESCRIP TRANSMIT VIA ERX SY CPT-4: G8553 05/29/2017 ROUTINE VENIPUNCTURE CPT-4: 47758 04/17/2017 ASSAY OF IRON CPT-4: 84029 04/17/2017 VITAMIN B-12 CPT-4: 43714 04/17/2017 COMPREHEN METABOLIC PANEL CPT-4: 04698 04/17/2017 COMPLETE CBC W/AUTO DIFF WBC CPT-4: 96259 04/17/2017 ASSAY OF FERRITIN CPT-4: 21350 04/17/2017 ASSAY THYROID STIM HORMONE CPT-4: 24000 04/17/2017 A1C HPLC CPT-4: 73135 04/17/2017 DRAIN/INJECT JOINT/BURSA CPT-4: 09366 02/01/2017 TRIAMCINOLONE ACET INJ NOS CPT-4: J3301 02/01/2017 DEXAMETHASONE SODIUM PHOS CPT-4: J1100 02/01/2017 ROUTINE VENIPUNCTURE CPT-4: 78539 12/27/2016 COMPLETE CBC W/AUTO DIFF WBC CPT-4: 11618 12/27/2016 ROUTINE VENIPUNCTURE CPT-4: 37925 12/21/2016 COMPLETE CBC W/AUTO DIFF WBC CPT-4: 02134 12/21/2016 ROUTINE VENIPUNCTURE CPT-4: 68857 12/12/2016 COMPLETE CBC W/AUTO DIFF WBC CPT-4: 06268 12/12/2016 PRESCRIP TRANSMIT VIA ERX SY CPT-4: G8553 10/31/2016 PRESCRIP TRANSMIT VIA ERX SY CPT-4: G8553 10/03/2016 PRESCRIP TRANSMIT VIA ERX SY CPT-4: G8553 09/04/2016 DESTRUCT PREMALG LESION (Cryosurgery) CPT-4: 37681 DESTRUCT PREMALG LES 2-14 CPT-4: 45740 08/22/2016 PRESCRIP TRANSMIT VIA ERX SY CPT-4: G8553 08/10/2016 PRESCRIP TRANSMIT VIA ERX SY CPT-4: G8553 07/06/2016 FLU VACC PRSV FREE INC ANTIG 65 AND OLDER CPT-4: 77837 06/13/2016 PNEUMOCOCCAL VACC 13 OLIVIA IM CPT-4: 70421 06/13/2016 ADMIN INFLUENZA VIRUS VAC CPT-4: G0008 06/13/2016 ADMIN PNEUMOCOCCAL VACCINE CPT-4: G0009 06/13/2016 CERUM REMOVAL CPT-4: 62214 04/05/2016 PRESCRIP TRANSMIT VIA ERX SY CPT-4: G8553 04/03/2016 ROUTINE VENIPUNCTURE CPT-4: 42791 03/06/2016 ASSAY OF FREE THYROXINE CPT-4: 63578 03/06/2016 ASSAY THYROID STIM HORMONE CPT-4: 40159 03/06/2016 COMPREHEN METABOLIC PANEL CPT-4: 06015 03/06/2016 COMPLETE CBC W/AUTO DIFF WBC CPT-4: 24895 03/06/2016 LIPID PANEL CPT-4: 50443 03/06/2016 ASSAY OF PSA TOTAL CPT-4: 30116 03/06/2016 TESTOSTERONE TOTAL - MALE CPT-4: 78329 03/06/2016 A1C HPLC CPT-4: 35561 03/06/2016 ASSAY OF IRON CPT-4: 48780 03/06/2016 VITAMIN B-12 CPT-4: 69337 03/06/2016 INJ TENDON SHEATH/LIGAMENT CPT-4: 18561 02/17/2016 TRIAMCINOLONE ACET INJ NOS CPT-4: J3301 02/17/2016 DEXAMETHASONE SODIUM PHOS CPT-4: J1100 02/17/2016 PRESCRIP TRANSMIT VIA ERX SY CPT-4: G8553 01/31/2016 PRESCRIP TRANSMIT VIA ERX SY CPT-4: G8553 12/30/2015 PRESCRIP TRANSMIT VIA ERX SY CPT-4: G8553 12/06/2015 PRESCRIP TRANSMIT VIA ERX SY CPT-4: G8553 11/15/2015 PPPS, subseq visit CPT-4: G0439 10/05/2015 MICROALBUMIN QUANTITATIVE CPT-4: 94113 10/05/2015 PROTEIN/CREAT URINE WITH RATIO CPT-4: 00011|93529 6 ROUTINE VENIPUNCTURE CPT-4: 35076 07/01/2015 ASSAY OF FREE THYROXINE CPT-4: 30349 07/01/2015 ASSAY THYROID STIM HORMONE CPT-4: 87922 07/01/2015 COMPLETE CBC W/AUTO DIFF WBC CPT-4: 67772 07/01/2015 LIPID PANEL CPT-4: 39035 07/01/2015 ASSAY OF PSA TOTAL CPT-4: 01656 07/01/2015 AEROBIC WOUND CULTURE & STN CPT-4: 16488 06/28/2015 PRESCRIP TRANSMIT VIA ERX SY CPT-4: G8553 06/28/2015 AEROBIC WOUND CULTURE & STN CPT-4: 16504 06/03/2015 PRESCRIP TRANSMIT VIA ERX SY CPT-4: G8553 06/03/2015 ROUTINE VENIPUNCTURE CPT-4: 78278 06/01/2015 COMPREHEN METABOLIC PANEL CPT-4: 53003 06/01/2015 A1C HPLC CPT-4: 19606 06/01/2015 COMPREHEN METABOLIC PANEL CPT-4: 92502 02/25/2015 A1C HPLC CPT-4: 58050 02/25/2015 DESTRUCT PREMALG LESION (Cryosurgery) CPT-4: 71156 PROTEIN/CREAT URINE WITH RATIO CPT-4: 15202|60345 5 MICROALBUMIN QUANTITATIVE CPT-4: 44972 10/27/2014 INFLUENZA ASSAY W/OPTIC CPT-4: 75611 10/21/2014 PRESCRIP TRANSMIT VIA ERX SY CPT-4: G8553 10/06/2014 PRESCRIP TRANSMIT VIA ERX SY CPT-4: G8553 09/21/2014 PRESCRIP TRANSMIT VIA ERX SY CPT-4: G8553 09/02/2014 MICROALBUMIN QUANTITATIVE CPT-4: 34895 08/27/2014 PROTEIN/CREAT URINE WITH RATIO CPT-4: 21823|91213 4 PPPS, subseq visit CPT-4: G0439 08/10/2014 ROUTINE VENIPUNCTURE CPT-4: 91789 08/05/2014 ASSAY OF FREE THYROXINE CPT-4: 26336 08/05/2014 ASSAY THYROID STIM HORMONE CPT-4: 13796 08/05/2014 COMPREHEN METABOLIC PANEL CPT-4: 48756 08/05/2014 COMPLETE CBC W/AUTO DIFF WBC CPT-4: 05551 08/05/2014 LIPID PANEL CPT-4: 11509 08/05/2014 A1C HPLC CPT-4: 99854 08/05/2014 FLUZONE, 5ML (Medicare) CPT-4: Q2038 08/05/2014 ADMIN INFLUENZA VIRUS VAC CPT-4: G0008 08/05/2014 METHYLPREDNISOLONE 40 MG INJ CPT-4: J1030 12/16/2013 TRIAMCINOLONE ACET INJ NOS CPT-4: J3301 12/16/2013 DRAIN/INJECT JOINT/BURSA CPT-4: 07642 12/16/2013 PRESCRIP TRANSMIT VIA ERX SY CPT-4: G8553 10/09/2013 THER/PROPH/DIAG INJ SC/IM CPT-4: 47531 09/18/2013 METHYLPREDNISOLONE 40 MG INJ CPT-4: J1030 09/18/2013 TRIAMCINOLONE ACET INJ NOS CPT-4: J3301 09/18/2013 PRESCRIP TRANSMIT VIA ERX SY CPT-4: G8553 09/18/2013 PRESCRIP TRANSMIT VIA ERX SY CPT-4: G8553 08/13/2013 ROUTINE VENIPUNCTURE CPT-4: 66406 06/25/2013 ASSAY OF FREE THYROXINE CPT-4: 22799 06/25/2013 ASSAY THYROID STIM HORMONE CPT-4: 50107 06/25/2013 COMPREHEN METABOLIC PANEL CPT-4: 99133 06/25/2013 COMPLETE CBC W/AUTO DIFF WBC CPT-4: 93393 06/25/2013 LIPID PANEL CPT-4: 46161 06/25/2013 A1C GLYCOSYLATED HEMOGLOBIN TEST CPT-4: 71723 013 ROUTINE VENIPUNCTURE CPT-4: 85986 04/09/2013 COMPLETE CBC W/AUTO DIFF WBC CPT-4: 52123 04/09/2013 MYCOPLASMA ANTIBODY, IFA CPT-4: 30625Q2 04/09/2013 ROUTINE VENIPUNCTURE CPT-4: 70334 02/11/2013 ASSAY OF FREE THYROXINE CPT-4: 63947 02/11/2013 ASSAY THYROID STIM HORMONE CPT-4: 44740 02/11/2013 COMPREHEN METABOLIC PANEL CPT-4: 69445 02/11/2013 COMPLETE CBC W/AUTO DIFF WBC CPT-4: 38203 02/11/2013 VITAMIN B 12 FOLIC ACID CPT-4: 66352|32778 02/11/2013 C-REACTIVE PROTEIN CPT-4: 10401 02/11/2013 A1C GLYCOSYLATED HEMOGLOBIN TEST CPT-4: 81738 013 ASSAY OF BLOOD/URIC ACID CPT-4: 74927 02/11/2013 CEFTRIAXONE SODIUM INJECTION CPT-4: J0696 01/31/2013 THER/PROPH/DIAG INJ SC/IM CPT-4: 66014 01/31/2013 THER/PROPH/DIAG INJ SC/IM CPT-4: 78162 01/31/2013 METHYLPREDNISOLONE 40 MG INJ CPT-4: J1030 01/31/2013 TRIAMCINOLONE ACET INJ NOS CPT-4: J3301 01/31/2013 ROUTINE VENIPUNCTURE CPT-4: 28122 09/19/2012 COMPREHEN METABOLIC PANEL CPT-4: 53803 09/19/2012 LIPID PANEL CPT-4: 37909 09/19/2012 A1C GLYCOSYLATED HEMOGLOBIN TEST CPT-4: 91812 012 PNEUMOCOCCAL VACC 23 OLIVIA IM CPT-4: 27934 07/10/2012 FLUZONE, 5ML (Medicare) CPT-4: Q2038 07/10/2012 ADMIN INFLUENZA VIRUS VAC CPT-4: G0008 07/10/2012 ADMIN PNEUMOCOCCAL VACCINE CPT-4: G0009 07/10/2012 ROUTINE VENIPUNCTURE CPT-4: 01082 05/06/2012 ASSAY OF FREE THYROXINE CPT-4: 12920 05/06/2012 ASSAY THYROID STIM HORMONE CPT-4: 06404 05/06/2012 COMPREHEN METABOLIC PANEL CPT-4: 20514 05/06/2012 COMPLETE CBC W/AUTO DIFF WBC CPT-4: 86095 05/06/2012 LIPID PANEL CPT-4: 18739 05/06/2012 A1C GLYCOSYLATED HEMOGLOBIN TEST CPT-4: 52124 012 IMMUNIZATION ADMIN CPT-4: 63672 02/05/2012 FLUZONE, 5ML (Medicare) CPT-4: Q2038 08/10/2011 ADMIN INFLUENZA VIRUS VAC CPT-4: G0008 08/10/2011 ROUTINE VENIPUNCTURE CPT-4: 14519 07/26/2011 ASSAY OF FREE THYROXINE CPT-4: 57559 07/26/2011 ASSAY THYROID STIM HORMONE CPT-4: 62371 07/26/2011 COMPREHEN METABOLIC PANEL CPT-4: 92443 07/26/2011 COMPLETE CBC W/AUTO DIFF WBC CPT-4: 38961 07/26/2011 LIPID PANEL CPT-4: 55426 07/26/2011 A1C GLYCOSYLATED HEMOGLOBIN TEST CPT-4: 16416 011 ASSAY OF PSA TOTAL CPT-4: 53201 07/26/2011 ROUTINE VENIPUNCTURE CPT-4: 54844 01/19/2011 ASSAY OF NATRIURETIC PEPTIDE CPT-4: 45344 01/19/2011 THER/PROPH/DIAG INJ SC/IM CPT-4: 93408 01/19/2011 CEFTRIAXONE SODIUM INJECTION CPT-4: J0696 01/19/2011 METHYLPREDNISOLONE INJECTION CPT-4: J2930 01/19/2011 THER/PROPH/DIAG INJ SC/IM CPT-4: 10235 01/19/2011 THER/PROPH/DIAG INJ SC/IM CPT-4: 68567 01/18/2011 CEFTRIAXONE SODIUM INJECTION CPT-4: J0696 01/18/2011 METHYLPREDNISOLONE INJECTION CPT-4: J2930 01/18/2011 THER/PROPH/DIAG INJ SC/IM CPT-4: 63662 01/18/2011 THER/PROPH/DIAG INJ SC/IM CPT-4: 61895 12/21/2010 TESTOSTERONE CYPIONAT 100 MG CPT-4: J1070 12/21/2010 ROUTINE VENIPUNCTURE CPT-4: 22942 12/19/2010 TESTOSTERONE TOTAL - MALE CPT-4: 93925 12/19/2010 ROUTINE VENIPUNCTURE CPT-4: 07797 12/07/2010 COMPLETE CBC W/AUTO DIFF WBC CPT-4: 29629 12/07/2010 COMPREHEN METABOLIC PANEL CPT-4: 98402 12/07/2010 LIPID PANEL CPT-4: 83760 12/07/2010 A1C GLYCOSYLATED HEMOGLOBIN TEST CPT-4: 89708 011 ASSAY OF PSA TOTAL CPT-4: 48778 12/07/2010 ROUTINE VENIPUNCTURE CPT-4: 57558 04/05/2010 PRESCRIP TRANSMIT VIA ERX SY CPT-4: G8553 04/05/2010 ROUTINE VENIPUNCTURE CPT-4: 16728 01/13/2010 METHYLPREDNISOLONE INJECTION CPT-4: J2930 12/22/2009 THER/PROPH/DIAG INJ SC/IM CPT-4: 99134 12/22/2009 THER/PROPH/DIAG INJ SC/IM CPT-4: 01793 12/22/2009 CEFTRIAXONE SODIUM INJECTION CPT-4: J0696 12/22/2009 ROUTINE VENIPUNCTURE CPT-4: 57842 12/22/2009 COMPLETE CBC W/AUTO DIFF WBC CPT-4: 83269 12/22/2009 RBC SED RATE, AUTOMATED CPT-4: 05910 12/22/2009 RPR FE/E/EN/L/M 20.1-30.0 CM CPT-4: 74877 12/22/2009 EKG FOR INITIAL PREVENT EXAM CPT-4: G0403 12/22/2009 THER/PROPH/DIAG INJ SC/IM CPT-4: 02189 12/16/2009 KETOROLAC TROMETHAMINE INJ CPT-4: J1885 12/16/2009 [...] 1: 126/68 Code: 8480-6 BMI: 30.2 Code: 04899-4 Heart Rate 1: 92 bpm Height: 6' Respiratory Rate: 22 bpm SpO2: 94% Tempera ture: 36.9 (C) / 98.5 (F) Weight: 223 lbs 08/21/2018 Blood Pressure 1: 160/70 Code: 8480-6 Heart Rate 1: 79 bpm Respiratory Rate: 20 bpm SpO2: 94% Temperature: 36.7 (C) / 98.0 (F) We ight: 226 lbs 8 oz 08/07/2018 Blood Pressure 1: 138/70 Code: 8480-6 BMI: 30.1 Code: 55603-7 Heart Rate 1: 80 bpm Height: 6' Respiratory Rate: 20 bpm SpO2: 94% Tempera ture: 36.9 (C) / 98.5 (F) Weight: 222 lbs 05/23/2018 Blood Pressure 1: 148/66 Code: 8480-6 BMI: 30.0 Code: 40749-5 Heart Rate 1: 96 bpm Height: 6' Respiratory Rate: 22 bpm SpO2: 94% Tempera ture: 37.3 (C) / 99.1 (F) Weight: 221 lbs 05/02/2018 Blood Pressure 1: 146/78 Code: 8480-6 BMI: 29.6 Code: 92231-4 Heart Rate 1: 78 bpm Height: 6' Respiratory Rate: 26 bpm SpO2: 94% Tempera ture: 35.7 (C) / 96.2 (F) Weight: 218 lbs 04/29/2018 Blood Pressure 1: 142/62 Code: 8480-6 BMI: 28.6 Code: 97143-4 Heart Rate 1: 82 bpm Height: 6' Respiratory Rate: 22 bpm SpO2: 98% Tempera ture: 36.4 (C) / 97.6 (F) Weight: 211 lbs 04/22/2018 Blood Pressure 1: 126/64 Code: 8480-6 BMI: 30.0 Code: 01285-3 Heart Rate 1: 96 bpm Height: 6' [...] 1: 144/78 Code: 8480-6 BMI: 30.7 Code: 83091-4 Heart Rate 1: 92 bpm Height: 6' Respiratory Rate: 28 bpm SpO2: 94% Tempera ture: 36.9 (C) / 98.4 (F) Weight: 226 lbs 12/28/2017 Blood Pressure 1: 136/80 Code: 8480-6 Heart Rate 1: 92 bpm Respiratory Rate: 28 bpm SpO2: 94% Temperature: 36.7 (C) / 98.1 (F) 12/21/2017 Blood Pressure 1: 146/84 Code: 8480-6 BMI: 31.1 Code: 29395-7 Heart Rate 1: 84 bpm Height: 6' [...] 1: 142/64 Code: 8480-6 BMI: 31.3 Code: 88927-3 Heart Rate 1: 98 bpm Height: 6' Respiratory Rate: 24 bpm SpO2: 94% Tempera ture: 36.4 (C) / 97.6 (F) Weight: 231 lbs 10/17/2017 Blood Pressure 1: 140/68 Code: 8480-6 BMI: 31.7 Code: 14117-1 Heart Rate 1: 88 bpm Height: 6' Respiratory Rate: 20 bpm SpO2: 94% Tempera ture: 36.8 (C) / 98.3 (F) Weight: 234 lbs 08/02/2017 Blood Pressure 1: 142/80 Code: 8480-6 BMI: 31.1 Code: 00561-4 Heart Rate 1: 86 bpm Height: 6' Respiratory Rate: 20 bpm SpO2: 90% Tempera ture: 35.9 (C) / 96.7 (F) Weight: 229 lbs 07/02/2017 Blood Pressure 1: 146/64 Code: 8480-6 BMI: 29.6 Code: 96204-4 Heart Rate 1: 96 bpm Height: 6' Respiratory Rate: 20 bpm Temperature: 36 .4 (C) / 97.6 (F) Weight: 218 lbs 05/29/2017 Blood Pressure 1: 152/68 Code: 8480-6 BMI: 31.5 Code: 39160-3 Heart Rate 1: 100 bpm Height: 6' Respiratory Rate: 20 bpm SpO2: 92% Tempera ture: 36.9 (C) / 98.4 (F) Weight: 232 lbs 02/01/2017 Blood Pressure 1: 146/64 Code: 8480-6 BMI: 30.7 Code: 98651-9 Heart Rate 1: 76 bpm Height: 6' Respiratory Rate: 20 bpm SpO2: 95% Tempera ture: 36.8 (C) / 98.2 (F) Weight: 226 lbs 01/29/2017 Blood Pressure 1: 146/78 Code: 8480-6 Heart Rate 1: 84 bpm Respiratory Rate: 20 bpm SpO2: 96% Temperature: 36.1 (C) / 97.0 (F) We ight: 226 lbs 12/21/2016 Blood Pressure 1: 126/60 Code: 8480-6 BMI: 30.8 Code: 90458-4 Heart Rate 1: 88 bpm Height: 6' Respiratory Rate: 22 bpm SpO2: 94% Tempera ture: 36.7 (C) / 98.0 (F) Weight: 227 lbs 12/14/2016 Blood Pressure 1: 126/70 Code: 8480-6 BMI: 29.8 Code: 78525-7 Heart Rate 1: 92 bpm Height: 6' Respiratory Rate: 22 bpm SpO2: 93% Tempera ture: 36.8 (C) / 98.2 (F) Weight: 220 lbs 11/14/2016 Blood Pressure 1: 128/62 Code: 8480-6 Heart Rate 1: 100 bpm Respiratory Rate: 20 bpm SpO2: 96% Temperature: 36.6 (C) / 97.8 (F) We ight: 220 lbs 10/31/2016 Blood Pressure 1: 142/60 Code: 8480-6 BMI: 30.1 Code: 95766-0 Heart Rate 1: 112 bpm Height: 6' Respiratory Rate: 24 bpm SpO2: 93% Tempera ture: 37.1 (C) / 98.7 (F) Weight: 222 lbs 10/03/2016 Blood Pressure 1: 136/78 Code: 8480-6 Heart Rate 1: 106 bpm Respiratory Rate: 24 bpm SpO2: 93% Temperature: 36.6 (C) / 97.8 (F) We ight: 221 lbs 09/04/2016 Blood Pressure 1: 112/44 Code: 8480-6 BMI: 30.1 Code: 26385-2 Heart Rate 1: 90 bpm Height: 6' Respiratory Rate: 20 bpm SpO2: 93% Tempera ture: 36.6 (C) / 97.9 (F) Weight: 222 lbs 08/22/2016 Blood Pressure 1: 142/68 Code: 8480-6 BMI: 30.4 Code: 16506-2 Heart Rate 1: 100 bpm Height: 6' Respiratory Rate: 24 bpm SpO2: 93% Tempera ture: 36.7 (C) / 98.1 (F) Weight: 224 lbs 08/10/2016 Blood Pressure 1: 134/60 Code: 8480-6 BMI: 30.2 Code: 84633-2 Heart Rate 1: 76 bpm Height: 6' [...] 1: 122/72 Code: 8480-6 BMI: 30.7 Code: 91810-1 Heart Rate 1: 96 bpm Height: 6' Respiratory Rate: 22 bpm SpO2: 96% Tempera ture: 35.9 (C) / 96.7 (F) Weight: 226 lbs 04/03/2016 Blood Pressure 1: 146/64 Code: 8480-6 BMI: 30.8 Code: 60608-6 Heart Rate 1: 76 bpm Height: 6' Respiratory Rate: 20 bpm Temperature: 36 .8 (C) / 98.2 (F) Weight: 227 lbs 03/02/2016 Blood Pressure 1: 148/60 Code: 8480-6 BMI: 31.1 Code: 04747-8 Heart Rate 1: 80 bpm Height: 6' Respiratory Rate: 22 bpm SpO2: 94% Tempera ture: 36.6 (C) / 97.8 (F) Weight: 229 lbs 02/17/2016 Blood Pressure 1: 132/60 Code: 8480-6 BMI: 31.3 Code: 52236-1 Heart Rate 1: 80 bpm Height: 6' Respiratory Rate: 20 bpm Temperature: 36 .9 (C) / 98.4 (F) Weight: 231 lbs 02/14/2016 Blood Pressure 1: 126/70 Code: 8480-6 BMI: 31.3 Code: 56245-5 Heart Rate 1: 80 bpm Height: 6' Respiratory Rate: 24 bpm SpO2: 95% Tempera ture: 36.9 (C) / 98.5 (F) Weight: 231 lbs 01/31/2016 Blood Pressure 1: 136/60 Code: 8480-6 Heart Rate 1: 76 bpm Respiratory Rate: 22 bpm Temperature: 37.0 (C) / 98.6 (F) Weight: 230 lbs 12/30/2015 Blood Pressure 1: 128/58 Code: 8480-6 BMI: 31.2 Code: 88351-1 Heart Rate 1: 80 bpm Height: 6' Respiratory Rate: 20 bpm Temperature: 36 .8 (C) / 98.2 (F) Weight: 230 lbs 12/16/2015 Blood Pressure 1: 122/60 Code: 8480-6 BMI: 32.0 Code: 66520-7 Heart Rate 1: 84 bpm Height: 6' Respiratory Rate: 24 bpm Temperature: 37 .1 (C) / 98.7 (F) Weight: 236 lbs 12/06/2015 Blood Pressure 1: 162/74 Code: 8480-6 BMI: 32.5 Code: 60844-6 Heart Rate 1: 90 bpm Height: 6' Respiratory Rate: 20 bpm SpO2: 96% Tempera ture: 36.4 (C) / 97.6 (F) Weight: 240 lbs 11/15/2015 Blood Pressure 1: 166/80 Code: 8480-6 BMI: 32.4 Code: 97057-1 Heart Rate 1: 92 bpm Height: 6' Respiratory Rate: 28 bpm Temperature: 36 .5 (C) / 97.7 (F) Weight: 239 lbs 10/05/2015 Blood Pressure 1: 146/76 Code: 8480-6 BMI: 32.4 Code: 57427-0 Heart Rate 1: 88 bpm Height: 6' Respiratory Rate: 28 bpm Temperature: 37 .1 (C) / 98.7 (F) Weight: 239 lbs 07/22/2015 Blood Pressure 1: 144/68 Code: 8480-6 BMI: 31.9 Code: 06554-4 Heart Rate 1: 88 bpm Height: 6' [...] 1: 142/64 Code: 8480-6 BMI: 32.1 Code: 38224-2 Heart Rate 1: 80 bpm Height: 6' Respiratory Rate: 18 bpm Temperature: 36 .4 (C) / 97.6 (F) Weight: 237 lbs 06/07/2015 Blood Pressure 1: 164/58 Code: 8480-6 BMI: 32.1 Code: 94643-1 Heart Rate 1: 88 bpm Height: 6' Respiratory Rate: 20 bpm Temperature: 36 .6 (C) / 97.9 (F) Weight: 237 lbs 06/03/2015 Blood Pressure 1: 152/64 Code: 8480-6 BMI: 32.1 Code: 89214-7 Heart Rate 1: 96 bpm Height: 6' Respiratory Rate: 20 bpm Temperature: 37 .4 (C) / 99.3 (F) Weight: 237 lbs 06/01/2015 Blood Pressure 1: 136/70 Code: 8480-6 BMI: 31.7 Code: 90546-2 Heart Rate 1: 72 bpm Height: 6' Respiratory Rate: 22 bpm SpO2: 94% Tempera ture: 36.6 (C) / 97.9 (F) Weight: 234 lbs 02/25/2015 Blood Pressure 1: 146/80 Code: 8480-6 BMI: 32.4 Code: 64655-3 Heart Rate 1: 84 bpm Height: 6' Respiratory Rate: 28 bpm Temperature: 36 .7 (C) / 98.0 (F) Weight: 239 lbs 10/27/2014 Blood Pressure 1: 168/70 Code: 8480-6 BMI: 32.0 Code: 38518-2 Heart Rate 1: 80 bpm Height: 6' Respiratory Rate: 30 bpm SpO2: 98% Tempera ture: 36.4 (C) / 97.6 (F) Weight: 236 lbs 10/21/2014 Blood Pressure 1: 152/58 Code: 8480-6 BMI: 32.1 Code: 08780-7 Heart Rate 1: 78 bpm Height: 6' Respiratory Rate: 20 bpm Temperature: 37 .8 (C) / 100.1 (F) Weight: 237 lbs 10/06/2014 Blood Pressure 1: 132/64 Code: 8480-6 BMI: 32.5 Code: 41446-4 Heart Rate 1: 88 bpm Height: 6' Respiratory Rate: 32 bpm SpO2: 94% Tempera ture: 36.8 (C) / 98.2 (F) Weight: 240 lbs 09/21/2014 Blood Pressure 1: 134/68 Code: 8480-6 BMI: 32.4 Code: 61151-5 Heart Rate 1: 96 bpm Height: 6' Respiratory Rate: 30 bpm Temperature: 36 .7 (C) / 98.1 (F) Weight: 239 lbs 09/08/2014 Blood Pressure 1: 128/74 Code: 8480-6 BMI: 32.4 Code: 81369-9 Heart Rate 1: 82 bpm Height: 6' Respiratory Rate: 28 bpm SpO2: 93% Tempera ture: 36.6 (C) / 97.8 (F) Weight: 239 lbs 09/02/2014 Blood Pressure 1: 164/78 Code: 8480-6 Heart Rate 1: 86 bpm Respiratory Rate: 22 bpm SpO2: 96% Temperature: 36.1 (C) / 97.0 (F) We ight: 239 lbs 08/10/2014 Blood Pressure 1: 152/60 Code: 8480-6 BMI: 32.8 Code: 00733-0 Heart Rate 1: 80 bpm Height: 6' [...] 1: 146/80 Code: 8480-6 BMI: 33.9 Code: 09058-7 Heart Rate 1: 80 bpm Height: 6' [...] 1: 148/78 Code: 8480-6 BMI: 30.5 Code: 71350-1 Heart Rate 1: 84 bpm Height: 6' Respiratory Rate: 28 bpm SpO2: 97% Tempera ture: 36.4 (C) / 97.5 (F) Weight: 225 lbs 08/06/2013 Blood Pressure 1: 158/70 Code: 8480-6 Heart Rate 1: 110 bpm Respiratory Rate: 22 bpm SpO2: 88% Temperature: 39.7 (C) / 103.4 (F) W eight: 07/16/2013 Blood Pressure 1: 148/82 Code: 8480-6 BMI: 31.9 Code: 65155-1 Heart Rate 1: 80 bpm Height: 6' Respiratory Rate: 20 bpm Temperature: 36 .6 (C) / 97.9 (F) Weight: 235 lbs 04/09/2013 Blood Pressure 1: 142/78 Code: 8480-6 BMI: 31.5 Code: 72988-1 Heart Rate 1: 88 bpm Height: 6' Respiratory Rate: 32 bpm SpO2: 95% Tempera ture: 37.0 (C) / 98.6 (F) Weight: 232 lbs 02/11/2013 Blood Pressure 1: 146/70 Code: 8480-6 Heart Rate 1: 88 bpm Respiratory Rate: 20 bpm Temperature: 36.8 (C) / 98.3 (F) Weight: 230 lbs 01/31/2013 Blood Pressure 1: 128/70 Code: 8480-6 BMI: 31.6 Code: 34596-5 Heart Rate 1: 84 bpm Height: 6' Respiratory Rate: 24 bpm SpO2: 92% Tempera ture: 36.7 (C) / 98.0 (F) Weight: 233 lbs 01/20/2013 Blood Pressure 1: 148/64 Code: 8480-6 BMI: 31.6 Code: 46073-5 Heart Rate 1: 68 bpm Height: 6' Temperature: 36.1 (C) / 97.0 (F) Weight: 233 lbs 12/19/2012 Blood Pressure 1: 128/68 Code: 8480-6 BMI: 32.0 Code: 48279-0 Heart Rate 1: 64 bpm Height: 6' Temperature: 36.7 (C) / 98.0 (F) Weight: 236 lbs 10/21/2012 Blood Pressure 1: 142/64 Code: 8480-6 BMI: 30.9 Code: 90977-5 Heart Rate 1: 74 bpm Height: 6' Temperature: 36.2 (C) / 97.1 (F) Weight: 228 lbs 09/18/2012 Blood Pressure 1: 126/60 Code: 8480-6 BMI: 31.3 Code: 07338-5 Heart Rate 1: 88 bpm Height: 6' Respiratory Rate: 20 bpm Temperature: 36 .5 (C) / 97.7 (F) Weight: 231 lbs 08/28/2012 Blood Pressure 1: 132/68 Code: 8480-6 BMI: 31.5 Code: 89436-2 Heart Rate 1: 92 bpm Height: 6' Respiratory Rate: 30 bpm SpO2: 94% Tempera ture: 37.1 (C) / 98.7 (F) Weight: 232 lbs 07/10/2012 Blood Pressure 1: 118/70 Code: 8480-6 BMI: 30.5 Code: 26705-9 Heart Rate 1: 72 bpm Height: 6' Respiratory Rate: 24 bpm SpO2: 96% Tempera ture: 36.7 (C) / 98.0 (F) Weight: 225 lbs 05/09/2012 Blood Pressure 1: 124/68 Code: 8480-6 BMI: 29.8 Code: 34137-6 Heart Rate 1: 72 bpm Height: 6' Respiratory Rate: 20 bpm Temperature: 36 .8 (C) / 98.2 (F) Weight: 220 lbs 10/02/2011 Blood Pressure 1: 140/82 Code: 8480-6 BMI: 30.7 Code: 65341-1 Heart Rate 1: 68 bpm Height: 6' Temperature: 36.7 (C) / 98.0 (F) Weight: 226 lbs 08/07/2011 Blood Pressure 1: 122/68 Code: 8480-6 BMI: 30.5 Code: 29372-9 Heart Rate 1: 72 bpm Height: 6' [...] 1: 140/78 Code: 8480-6 BMI: 31.9 Code: 68584-0 Heart Rate 1: 84 bpm Height: 6' Temperature: 36.6 (C) / 97.8 (F) Weight: 235 lbs 12/22/2009 Blood Pressure 1: 140/74 Code: 8480-6 BMI: 31.9 Code: 65306-4 Heart Rate 1: 94 bpm Height: 6' SpO2: 92% Temperature: 35.7 (C) / 96.2 (F) Weight: 235 lbs 12/13/2009 Blood Pressure 1: 146/80 Code: 8480-6 BMI: 33.0 Code: 69789-7 Heart Rate 1: 86 bpm Height: 6' [...] follow up 05/08/2019 follow up 04/07/2019 Hospital fwup dizziness 03/24/2019 dizziness 03/21/2019 sore throat 03/13/2019 [...] fighting constantly with her. follow up 04/22/2018 [facility] fwup follow up 01/28/2018 knee pain 01/23/2018 nocturia 01/02/2018 dyspnea 12/28/2017 follow up 12/21/2017 chest congestion 12/17/2017 knee pain 12/11/2017 mole check 11/07/2017 follow up 10/17/2017 ER fwup cough 08/02/2017 injection(s) 07/24/2017 Pneumovax follow up 07/02/2017 Patient recently ariel campos on [facility], but never picked up. He was also given prednisone/Zpack on 06/16/17 from walk in clinic. Patient is also in consult with Dr Benjamin. patient dc'd from hospital last week and reports that he is still taking the antibiotic that was prescribed to him (augmentin) and finished out the prednisone. 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 follow up 05/29/2017 Discuss Low Back [...] nightly. Patient has just been discharged from [place] with Pneumonia. Currently on Levaquin once daily. [...] fwup follow up 03/13/2016 Patient here for [facility] on medication education for insulin [...] 12/13/2009 Encounters Encounter Performer Location Codes Date ([id number]) OFFICE/OUTPATIENT VISIT EST Diagnosis: Chronic obstructive pulmonary disease, unspecified[ICD10: J44.9] Lita BARAKAT [employer] CPT-4: 60757 03/04/2020 ([id number]) OFFICE/OUTPATIENT VISIT EST Diagnosis: Chronic obstructive pulmonary disease, unspecified[ICD10: J44.9] Lita BARAKAT DO [employer] CPT-4: 52300 02/04/2020 ([id number]) OFFICE/OUTPATIENT VISIT EST Diagnosis: Chronic obstructive pulmonary disease with (acute) exacerbation[ICD10: J44.1] Lita BARAKAT DO [facility] CPT- 4: 25361 12/25/2019 ([id number]) OFFICE/OUTPATIENT VISIT EST Diagnosis: Noncompliance with diabetes treatment[ICD10: Z91.19] Diagnosis: Insomnia[ICD10: G47.00] Diagnosis: Pain in right knee[ICD10: M25.561] [facility]: 06369 12/22/2019 ([id number]) OFFICE/OUTPATIENT VISIT EST Diagnosis: Chronic respiratory failure with hypercapnia[ICD10: J96.12] Diagnosis: Chronic airway obstruction, not elsewhere classified[ICD10: J44.9] Diagnosis: Basal cell carcinoma, face[ICD10: C44.310] Lita BARAKAT DO [facility] CPT-4: 32502 11/12/2019 ([id number]) OFFICE/OUTPATIENT VISIT EST Diagnosis: Chronic obstructive pulmonary disease, unspecified[ICD10: J44.9] Diagnosis: Right thyroid nodule[ICD10: E04.1] Lita BARAKAT [employer] [facility] CPT-4: 21470 09/11/2019 ([id number]) OFFICE/OUTPATIENT VISIT EST Diagnosis: Chronic bronchitis[ICD10: J42] 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 CPT-4: 51260 08/07/2019 ([id number]) OFFICE/OUTPATIENT VISIT EST Diagnosis: Chronic obstructive pulmonary disease with (acute) exacerbation[ICD10: J44.1] Autumn BARAKAT DO [facility] CPT- 4: 80496 07/14/2019 ([id number]) OFFICE/OUTPATIENT VISIT EST Diagnosis: Primary insomnia[ICD10: F51.01] Diagnosis: Dyspepsia and other specified disorders of function of stomach[ICD10: K31.89] Lita BARAKAT [employer] [facility] CPT-4: 31547 07/01/2019 ([id number]) OFFICE/OUTPATIENT VISIT EST Diagnosis: Epigastric pain[ICD10: R10.13] Diagnosis: Nausea[ICD10: R11.0] Diagnosis: Weight loss[ICD10: R63.4] Lita AREVALO DO [facility] CPT-4: 09140 06/24/2019 ([id number]) OFFICE/OUTPATIENT VISIT EST Diagnosis: Chronic obstructive pulmonary disease, unspecified[ICD10: J44.9] Diagnosis: Chronic insomnia[ICD10: F51.04] Diagnosis: Anemia[ICD10: D64.9] Diagnosis: Diplopia[ICD10: H53.2] Diagnosis: [place][ICD10: F30.9] Lita BARAKAT DO [facility] CPT-4: 29358 06/17/2019 ([id number]) NURSE/OUTPATIENT VISIT EST Diagnosis: Vitamin B12 deficiency anemia, unspecified[ICD10: D51.9] Lita BARAKAT DO [facility] CPT-4: 78709 06/10/2019 ([id number]) NURSE/OUTPATIENT VISIT EST Diagnosis: Vitamin B12 deficiency anemia, unspecified[ICD10: D51.9] Lita BARAKAT DO [facility] CPT-4: 09228 06/02/2019 ([id number]) NURSE/OUTPATIENT VISIT EST Diagnosis: Vitamin B12 deficiency anemia, unspecified[ICD10: D51.9] Lita BARAKAT DO [facility] CPT-4: 89249 05/27/2019 ([id number]) NURSE/OUTPATIENT VISIT EST Diagnosis: Vitamin B12 deficiency anemia, unspecified[ICD10: D51.9] Lita BARAKAT DO [facility] CPT-4: 39235 05/12/2019 ([id number]) OFFICE/OUTPATIENT VISIT EST Diagnosis: Restless legs syndrome[ICD10: G25.81] Diagnosis: Primary insomnia[ICD10: F51.01] Diagnosis: Anemia, unspecified[ICD10: D64.9] Diagnosis: Type 2 diabetes mellitus with hyperglycemia[ICD10: E11.65] Diagnosis: Vitamin D deficiency, unspecified[ICD10: E55.9] Lita BARAKAT DO [facility] CPT-4: 29349 05/08/2019 ([id number]) OFFICE/OUTPATIENT VISIT EST Diagnosis: Pain in right knee[ICD10: M25.561] Diagnosis: Restless legs syndrome[ICD10: G25.81] Diagnosis: Insomnia, unspecified[ICD10: G47.00] Lita BARAKAT DO [facility] CPT-4: 01151 04/07/2019 ([id number]) NO CHARGE Diagnosis: Chronic obstructive pulmonary disease with (acute) exacerbation[ICD10: J44.1] Diagnosis: Dizziness and giddiness[ICD10: R42] Diagnosis: Generalized anxiety disorder[ICD10: F41.1] Autumn BARAKAT DO [facility] CPT-4: 02506 03/24/2019 ([id number]) OFFICE/OUTPATIENT VISIT EST Diagnosis: Chronic obstructive pulmonary disease with (acute) exacerbation[ICD10: J44.1] Diagnosis: Dizziness and giddiness[ICD10: R42] Autumn BARAKAT [facility] CPT-4: 91801 03/21/2019 ([id number]) OFFICE/OUTPATIENT VISIT EST Diagnosis: Candidal stomatitis[ICD10: B37.0] Lita BARAKAT [facility] CPT-4: 09631 03/13/2019 ([id number]) OFFICE/OUTPATIENT VISIT EST Diagnosis: Chronic obstructive pulmonary disease with acute lower respiratory infection[ICD10: J44.0] Diagnosis: Restless legs syndrome[ICD10: G25.81] Lita BARAKAT [facility] CPT-4: 84512 03/10/2019 ([id number]) OFFICE/OUTPATIENT VISIT EST Diagnosis: Restless legs syndrome[ICD10: G25.81] Lita ARCHERNDBEV JOHNSON [facility] CPT-4: 88932 02/26/2019 ([id number]) OFFICE/OUTPATIENT VISIT EST Diagnosis: Primary insomnia[ICD10: F51.01] Diagnosis: Chronic obstructive pulmonary disease, unspecified[ICD10: J44.9] Lita BARAKAT [facility] CPT-4: 05169 02/13/2019 ([id number]) OFFICE/OUTPATIENT VISIT EST Diagnosis: Chronic obstructive pulmonary disease, unspecified[ICD10: J44.9] Diagnosis: Chronic respiratory failure with hypoxia[ICD10: J96.11] Diagnosis: Chronic respiratory failure with hypercapnia[ICD10: J96.12] Lita ALYLINE Ashley BARAKAT DO [facility] CPT-4: 40811 01/14/2019 ([id number]) OFFICE/OUTPATIENT VISIT EST Diagnosis: Chronic respiratory failure with hypoxia[ICD10: J96.11] Diagnosis: Patient's noncompliance with other medical treatment and regimen[ICD10: Z91.19] Diagnosis: Chronic obstructive pulmonary disease with (acute) exacerbation[ICD10: J44.1] Lita BARAKAT [facility] CPT- 4: 17559 12/25/2018 ([id number]) OFFICE/OUTPATIENT VISIT EST Diagnosis: Essential (primary) hypertension[ICD10: I10] Diagnosis: Type 2 diabetes mellitus with hyperglycemia[ICD10: E11.65] Diagnosis: Hypothyroidism, unspecified[ICD10: E03.9] Diagnosis: Hyperlipidemia, unspecified[ICD10: E78.5] Diagnosis: Acute recurrent maxillary sinusitis[ICD10: J01.01] Ines Banerjee LITA BARAKAT [facility] CPT-4: 74408 12/09/2018 ([id number]) OFFICE/OUTPATIENT VISIT EST Diagnosis: Candidal stomatitis[ICD10: B37.0] Lita Barakat RUSSEL Segura Ashley BARAKAT [facility] CPT-4: 81927 12/05/2018 ([id number]) OFFICE/OUTPATIENT VISIT EST Diagnosis: Acute recurrent sinusitis, unspecified[ICD10: J01.91] Diagnosis: Pain in right knee[ICD10: M25.561] Lita GONZALES Ashley BARAKAT [facility] CPT-4: 40882 10/23/2018 ([id number]) OFFICE/OUTPATIENT VISIT EST Diagnosis: Restless legs syndrome[ICD10: G25.81] Diagnosis: Basal cell carcinoma of skin of scalp and neck[ICD10: C44.41] Lita Yuval ALYLINE Ashley BARAKAT [facility] CPT-4: 83058 08/21/2018 ([id number]) OFFICE/OUTPATIENT VISIT EST Diagnosis: Chronic obstructive pulmonary disease with acute lower respiratory infection[ICD10: J44.0] Diagnosis: Restless legs syndrome[ICD10: G25.81] Lita BARAKAT DO [facility] CPT-4: 88154 08/07/2018 ([id number]) OFFICE/OUTPATIENT VISIT EST Diagnosis: Chronic obstructive pulmonary disease with acute lower respiratory infection[ICD10: J44.0] Lita BARAKAT DO [facility] CPT-4: 09319 05/23/2018 ([id number]) OFFICE/OUTPATIENT VISIT EST Diagnosis: Candidal stomatitis[ICD10: B37.0] Lita BARAKAT DO [facility] CPT-4: 15533 05/02/2018 ([id number]) OFFICE/OUTPATIENT VISIT EST Diagnosis: Candidal stomatitis[ICD10: B37.0] Diagnosis: Other retention of urine[ICD10: R33.8] Diagnosis: Chronic obstructive pulmonary disease with acute lower respiratory infection[ICD10: J44.0] Autumn BARAKAT 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 CPT-4: 08976 01/02/2018 ([id number]) OFFICE/OUTPATIENT VISIT EST Diagnosis: Chronic obstructive pulmonary disease with (acute) exacerbation[ICD10: J44.1] Autumn BARAKAT DO [facility] CPT- 4: 14836 12/28/2017 ([id number]) OFFICE/OUTPATIENT VISIT EST Diagnosis: Acute bronchitis, unspecified[ICD10: J20.9] Autumn BARAKAT DO [facility] CPT-4: 21846 12/21/2017 ([id number]) OFFICE/OUTPATIENT VISIT EST Diagnosis: Chronic obstructive pulmonary disease with acute lower respiratory infection[ICD10: J44.0] Diagnosis: Pain in right knee[ICD10: M25.561] Autumn BARAKAT [facility] CPT-4: 79604 12/17/2017 ([id number]) OFFICE/OUTPATIENT VISIT EST Diagnosis: Laceration without foreign body of right hand, sequela[ICD10: S61.411S] Diagnosis: Restless legs syndrome[ICD10: G25.81] Lita BARAKAT [facility] CPT-4: 29109 10/17/2017 OFFICE/OUTPATIENT VISIT EST Diagnosis: Chronic obstructive pulmonary disease with acute lower respiratory infection[ICD10: J44.0] Autumn BARAKAT [facility] CPT-4: 63233 08/02/2017 ([id number]) OFFICE/OUTPATIENT VISIT EST Diagnosis: PNEUMOCOCCAL VACCINE[ICD10: Z23] Lita BARAKAT [facility] CPT-4: 02888 07/24/2017 OFFICE/OUTPATIENT VISIT EST Diagnosis: Chronic obstructive pulmonary disease with (acute) exacerbation[ICD10: J44.1] Autumn BARAKAT [facility] CPT- 4: 55114 07/02/2017 OFFICE/OUTPATIENT VISIT EST Diagnosis: Low back pain[ICD10: M54.5] Ruchi Buchanan LITAFLOR GHOTRA [facility] CPT-4: 08998 05/29/2017 ([id number]) OFFICE/OUTPATIENT VISIT EST Diagnosis: Essential (primary) hypertension[ICD10: I10] Diagnosis: Hypothyroidism, unspecified[ICD10: E03.9] Diagnosis: Dizziness and giddiness[ICD10: R42] Diagnosis: Other abnormality of red blood cells[ICD10: R71.8] Diagnosis: Contracture of muscle, unspecified site[ICD10: M62.40] Lita BARAKAT DO [facility] CPT-4: 56373 04/17/2017 OFFICE/OUTPATIENT VISIT EST Diagnosis: Pain in left shoulder[ICD10: M25.512] Ruchi Chanel TADEO BARAKAT [facility] CPT-4: 58866 01/29/2017 ([id number]) OFFICE/OUTPATIENT VISIT EST Diagnosis: Anemia, unspecified[ICD10: D64.9] Lita BARAKAT [facility] CPT-4: 26768 12/27/2016 ([id number]) OFFICE/OUTPATIENT VISIT EST Diagnosis: Other fatigue[ICD10: R53.83] Diagnosis: Other iron deficiency anemias[ICD10: D50.8] Lita BARAKAT [facility] CPT-4: 20595 12/21/2016 ([id number]) OFFICE/OUTPATIENT VISIT EST Diagnosis: Anemia, unspecified[ICD10: D64.9] Diagnosis: Other fatigue[ICD10: R53.83] Diagnosis: Restless legs syndrome[ICD10: G25.81] Lita BARAKAT DO [facility] CPT-4: 56435 12/14/2016 ([id number]) OFFICE/OUTPATIENT VISIT EST Diagnosis: Anemia, unspecified[ICD10: D64.9] Diagnosis: Other abnormality of red blood cells[ICD10: R71.8] Lita BARAKAT DO [facility] CPT-4: 32018 12/12/2016 ([id number]) OFFICE/OUTPATIENT VISIT EST Diagnosis: Pneumonia, unspecified organism[ICD10: J18.9] Diagnosis: Restless legs syndrome[ICD10: G25.81] Magda Toth TADEO BARAKAT [facility] CPT-4: 12141 11/14/2016 ([id number]) OFFICE/OUTPATIENT VISIT EST Diagnosis: Candidal stomatitis[ICD10: B37.0] Lita Giannielvabev [facility]CAR [facility] CPT-4: 75665 10/31/2016 ([id number]) OFFICE/OUTPATIENT VISIT EST Diagnosis: Acute upper respiratory infection, unspecified[ICD10: J06.9] Diagnosis: Personal history of pneumonia (recurrent)[ICD10: Z87.01] Magda Toth LITA Ashley [facility] CPT-4: 16118 10/03/2016 ([id number]) OFFICE/OUTPATIENT VISIT EST Diagnosis: Restless legs syndrome[ICD10: G25.81] Diagnosis: Insomnia, unspecified[ICD10: G47.00] Magda ALY FLOR Ashley [facility] CPT-4: 86572 09/04/2016 ([id number]) OFFICE/OUTPATIENT VISIT EST Diagnosis: Restless legs syndrome[ICD10: G25.81] Diagnosis: Primary insomnia[ICD10: F51.01] Lita Giannielvabev ALYLITA Ashley [facility] CPT-4: 37683 08/10/2016 OFFICE/OUTPATIENT VISIT EST Diagnosis: Toxic gastroenteritis and colitis[ICD10: K52.1] Diagnosis: Dizziness and giddiness[ICD10: R42] Diagnosis: Headache[ICD10: R51] Diagnosis: Restless legs syndrome[ICD10: G25.81] Lita Giannibetty TRAN Ashley [facility] CPT-4: 38281 07/06/2016 ([id number]) OFFICE/OUTPATIENT VISIT EST Diagnosis: Chest pain, unspecified[ICD10: R07.9] Diagnosis: Dyspnea, unspecified[ICD10: R06.00] Magda Toth ELLIS CONDE Ashley [facility] CPT-4: 77288 06/22/2016 ([id number]) OFFICE/OUTPATIENT VISIT EST 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 CPT-4: 56052 06/01/2016 ([id number]) OFFICE/OUTPATIENT VISIT EST Diagnosis: Unspecified hearing loss, left ear[ICD10: H91.92] Diagnosis: Other specified disorders of Eustachian tube, left ear[ICD10: H69.82] Magda ALYLINE Ashley BARAKAT 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] Lita Yuval ALYLINE Ashley [facility] CPT - 4: 01684 03/13/2016 ([id number]) OFFICE/OUTPATIENT VISIT EST Diagnosis: Type 2 diabetes mellitus with hyperglycemia[ICD10: E11.65] Diagnosis: Hyperlipidemia, unspecified[ICD10: E78.5] Diagnosis: Essential (primary) hypertension[ICD10: I10] Diagnosis: Chronic obstructive pulmonary disease, unspecified[ICD10: J44.9] Diagnosis: Testicular hypofunction[ICD10: E29.1] Diagnosis: Male erectile dysfunction, unspecified[ICD10: N52.9] Diagnosis: Anemia, unspecified[ICD10: D64.9] Lita Giannibetty Segura Ashley [facility] CPT-4: 40503 03/06/2016 ([id number]) OFFICE/OUTPATIENT VISIT EST Diagnosis: Type 2 diabetes mellitus with hyperglycemia[ICD10: E11.65] Diagnosis: Hyperlipidemia, unspecified[ICD10: E78.5] Diagnosis: Chronic obstructive pulmonary disease, unspecified[ICD10: J44.9] Diagnosis: Male erectile dysfunction, unspecified[ICD10: N52.9] Lita BARAKAT DO [facility] CPT-4: 72165 03/02/2016 ([id number]) OFFICE/OUTPATIENT VISIT EST Diagnosis: Pain in right foot[ICD10: M79.671] Magda BARAKAT DO [facility] CPT-4: 44971 02/14/2016 OFFICE/OUTPATIENT VISIT EST Diagnosis: Generalized anxiety disorder[ICD10: F41.1] Lita BARAKAT DO [facility] CPT-4: 12184 01/31/2016 ([id number]) OFFICE/OUTPATIENT VISIT EST Diagnosis: Generalized anxiety disorder[ICD10: F41.1] Lita BARAKAT DO [facility] CPT-4: 52931 12/30/2015 ([id number]) OFFICE/OUTPATIENT VISIT EST Diagnosis: Localized swelling, mass and lump, neck[ICD10: R22.1] Lita BARAKAT DO [facility] CPT-4: 02490 12/16/2015 OFFICE/OUTPATIENT VISIT EST Diagnosis: Localized enlarged lymph nodes[ICD10: R59.0] Diagnosis: Otalgia, left ear[ICD10: H92.02] Stephanie BARAKAT DO [facility] CPT-4: 87609 12/06/2015 OFFICE/OUTPATIENT VISIT EST Diagnosis: Localized enlarged lymph nodes[ICD10: R59.0] Diagnosis: Squamous cell carcinoma of skin, unspecified[ICD10: C44.92] Diagnosis: Actinic keratosis[ICD10: L57.0] Stephanie BARAKAT DO [facility] CPT-4: 75804 11/15/2015 OFFICE/OUTPATIENT VISIT EST Diagnosis: Cellulitis of left lower limb[ICD10: L03.116] Diagnosis: Encounter for examination and observation for other specified reasons[ICD10: Z04.8] Diagnosis: Chronic obstructive pulmonary disease, unspecified[ICD10: J44.9] Stephanie BARAKAT DO [facility] CPT-4: 12624 07/22/2015 OFFICE/OUTPATIENT VISIT EST Diagnosis: Other specified joint disorders, left knee[ICD10: M25.862] Diagnosis: Cellulitis of left lower limb[ICD10: L03.116] Diagnosis: Other fatigue[ICD10: R53.83] Diagnosis: Hyperlipidemia, unspecified[ICD10: E78.5] Stephanie BARAKAT DO [facility] CPT-4: 84957 07/01/2015 OFFICE/OUTPATIENT VISIT EST Diagnosis: Pain in left knee[ICD10: M25.562] Diagnosis: Cellulitis of left lower limb[ICD10: L03.116] Diagnosis: Other specified joint disorders, left knee[ICD10: M25.862] Stephanie BARAKAT [facility] CPT-4: 56797 06/28/2015 OFFICE/OUTPATIENT VISIT EST Diagnosis: PREPATELLAR BURSITIS[ICD9: 726.65] Diagnosis: Cellulitis of knee, left[ICD9: 682.6] Stephanie BARAKAT [facility] CPT-4: 90737 06/09/2015 ([id number]) OFFICE/OUTPATIENT VISIT EST Diagnosis: PREPATELLAR BURSITIS[ICD9: 726.65] Diagnosis: Cellulitis of knee, left[ICD9: 682.6] Lita BARAKAT [facility] CPT-4: 92072 06/07/2015 OFFICE/OUTPATIENT VISIT EST Diagnosis: Cellulitis of knee, left[ICD9: 682.6] Stephanie BARAKAT [facility] CPT-4: 65170 06/03/2015 ([id number]) OFFICE/OUTPATIENT VISIT EST Diagnosis: DM W/O COMPLICATION TYPE II, UNCONTROLLED[ICD9: 250.02] Diagnosis: COPD[ICD9: 496] Lita BARAKAT [facility] CPT- 4: 71709 06/01/2015 ([id number]) OFFICE/OUTPATIENT VISIT EST Diagnosis: COPD[ICD9: 496] Diagnosis: DYSPNEA[ICD9: 786.09] Diagnosis: DM W/O COMPLICATION TYPE II, UNCONTROLLED[ICD9: 250.02] Diagnosis: Actinic keratosis[ICD9: 702.0] Lita BARAKAT [facility] CPT-4: 37188 02/25/2015 ([id number]) OFFICE/OUTPATIENT VISIT EST Diagnosis: ASTHMA NOS[ICD9: 493.90] Diagnosis: COPD[ICD9: 496] Diagnosis: DM W/O COMPLICATION TYPE II, UNCONTROLLED[ICD9: 250.02] Lita BARAKAT [facility] CPT-4: 05160 10/27/2014 OFFICE/OUTPATIENT VISIT EST Diagnosis: DYSPNEA[ICD9: 786.09] Diagnosis: COPD[ICD9: 496] Lita BARAKAT DO [facility] CPT- 4: 28988 10/06/2014 ([id number]) OFFICE/OUTPATIENT VISIT EST Diagnosis: PNEUMONIA, ORGANISM[ICD9: 486] Diagnosis: COPD[ICD9: 496] Diagnosis: DYSPNEA[ICD9: 786.09] Lita BARAKAT [facility] CPT-4: 68002 09/21/2014 OFFICE/OUTPATIENT VISIT EST Diagnosis: PNEUMONIA, ORGANISM[ICD9: 486] Diagnosis: DYSPNEA[ICD9: 786.09] Diagnosis: COUGH[ICD9: 786.2] Stephanie BARAKAT [facility] CPT-4: 14523 09/08/2014 OFFICE/OUTPATIENT VISIT EST Diagnosis: COPD with exacerbation[ICD9: 491.21] Diagnosis: COUGH[ICD9: 786.2] Diagnosis: DYSPNEA[ICD9: 786.09] Stephanie BARAKAT DO [facility] CPT-4: 32273 09/02/2014 ([id number]) OFFICE/OUTPATIENT VISIT EST Diagnosis: DM W/O COMPLICATION TYPE II, UNCONTROLLED[ICD9: 250.02] Lita BARAKAT [facility] CPT-4: 85777 08/27/2014 ([id number]) OFFICE/OUTPATIENT VISIT EST Diagnosis: DM W/O COMPLICATION TYPE II, UNCONTROLLED[ICD9: 250.02] Diagnosis: HYPERLIPIDEMIA NEC/NOS[ICD9: 272.4] Diagnosis: HYPERTENSION[ICD9: 401.9] Diagnosis: COPD[ICD9: 496] Diagnosis: FLU VACCINE[ICD10: Z23] Lita PABLO [facility] CPT-4: 53986 08/05/2014 ([id number]) OFFICE/OUTPATIENT VISIT EST Diagnosis: COPD[ICD9: 496] Diagnosis: Lumbar degenerative disc disease[ICD9: 722.52] Lita BARAKAT [facility] CPT-4: 40126 05/05/2014 OFFICE/OUTPATIENT VISIT EST Diagnosis: DYSPNEA[ICD9: 786.09] Diagnosis: COPD[ICD9: 496] Lita BARAKAT [facility] CPT- 4: 18672 03/24/2014 ([id number]) OFFICE/OUTPATIENT VISIT EST Diagnosis: COPD[ICD9: 496] Diagnosis: DYSPNEA[ICD9: 786.09] Lita BARAKAT [facility] CPT-4: 43731 03/10/2014 OFFICE/OUTPATIENT VISIT EST Diagnosis: Subacromial bursitis[ICD9: 726.19] Diagnosis: Chronic low back pain[ICD9: 724.2] Diagnosis: Lumbar degenerative disc disease[ICD9: 722.52] Lita BARAKAT [facility] CPT-4: 91255 12/16/2013 ([id number]) OFFICE/OUTPATIENT VISIT EST Diagnosis: PHARYNGITIS, ACUTE[ICD9: 462] Diagnosis: COPD[ICD9: 496] Lita BARAKAT [facility] CPT- 4: 33856 10/09/2013 OFFICE/OUTPATIENT VISIT EST Diagnosis: COPD[ICD9: 496] Diagnosis: Acute exacerbation of chronic obstructive pulmonary disease (COPD)[ICD9: 491.21] Ruchi Buchanan LITA BARAKAT [facility] CPT-4: 28493 09/18/2013 ([id number]) OFFICE/OUTPATIENT VISIT EST Diagnosis: PNEUMONIA, ORGANISM[ICD9: 486] Diagnosis: DM W/O COMPLICATION TYPE II[ICD9: 250.00] Lita BARAKAT [facility] CPT-4: 55415 08/13/2013 ([id number]) OFFICE/OUTPATIENT VISIT EST Diagnosis: DM W/O COMPLICATION TYPE II, UNCONTROLLED[ICD9: 250.02] Diagnosis: HYPERLIPIDEMIA NEC/NOS[ICD9: 272.4] Diagnosis: HYPERTENSION[ICD9: 401.9] Diagnosis: DYSPNEA[ICD9: 786.09] Diagnosis: Family history of CABG[ICD9: V17.49] Lita Ramirez [facility] CPT-4: 73694 07/16/2013 ([id number]) OFFICE/OUTPATIENT VISIT EST Diagnosis: DM W/O COMPLICATION TYPE II, UNCONTROLLED[ICD9: 250.02] Diagnosis: HYPERLIPIDEMIA NEC/NOS[ICD9: 272.4] Diagnosis: HYPERTENSION[ICD9: 401.9] Lita Ramirez [facility] CPT-4: 75745 06/25/2013 OFFICE/OUTPATIENT VISIT EST Diagnosis: COUGH[ICD9: 786.2] Diagnosis: COPD[ICD9: 496] Kimberly Ramirez [facility] CPT- 4: 22753 04/09/2013 ([id number]) OFFICE/OUTPATIENT VISIT EST Diagnosis: Muscle spasm[ICD9: 728.85] Diagnosis: ARTHRALGIA-MULTIPLE SITES[ICD9: 719.49] Lita Ramirez [facility] CPT-4: 87066 02/11/2013 OFFICE/OUTPATIENT VISIT EST Diagnosis: COPD with exacerbation[ICD9: 491.21] Diagnosis: BRONCHITIS, ACUTE[ICD9: 466.0] Ruchi [facility] CPT-4: 34805 01/31/2013 OFFICE/OUTPATIENT VISIT EST Diagnosis: COUGH[ICD9: 786.2] Diagnosis: PHARYNGITIS, ACUTE[ICD9: 462] Diagnosis: SINUSITIS, ACUTE[ICD9: 461.9] Lita Ramirez [facility] CPT-4: 16491 01/20/2013 OFFICE/OUTPATIENT VISIT EST Diagnosis: DIZZINESS/VERTIGO[ICD9: 780.4] Lita [facility] CPT-4: 17348 12/19/2012 OFFICE/OUTPATIENT VISIT EST Diagnosis: Skin lesion of left arm[ICD9: 709.9] Diagnosis: Otitis externa[ICD9: 380.10] Diagnosis: PHARYNGITIS, ACUTE[ICD9: 462] Lita [facility] CPT-4: 66966 10/21/2012 ([id number]) OFFICE/OUTPATIENT VISIT EST Diagnosis: DM W/O COMPLICATION TYPE II, UNCONTROLLED[ICD9: 250.02] Diagnosis: HYPERLIPIDEMIA NEC/NOS[ICD9: 272.4] Diagnosis: HYPERTENSION[ICD9: 401.9] [facility] CPT-[facility]: 98651 09/19/2012 ([id number]) OFFICE/OUTPATIENT VISIT EST Diagnosis: DM W/O COMPLICATION TYPE II, UNCONTROLLED[ICD9: 250.02] Diagnosis: HYPERLIPIDEMIA NEC/NOS[ICD9: 272.4] Diagnosis: COPD[ICD9: 496] Lita [facility] CPT- 4: 26239 09/18/2012 ([id number]) OFFICE/OUTPATIENT VISIT EST Diagnosis: BRONCHITIS, ACUTE[ICD9: 466.0] Diagnosis: SINUSITIS, ACUTE[ICD9: 461.9] Lita [facility] CPT-4: 69464 08/28/2012 ([id number]) OFFICE/OUTPATIENT VISIT EST Diagnosis: COPD[ICD9: 496] Diagnosis: DYSPNEA[ICD9: 786.09] Diagnosis: VAC STREP PNEUMONIAE-FLU (Medicare)[ICD9: V06.6] Lita [facility] CPT-4: 85772 07/10/2012 ([id number]) OFFICE/OUTPATIENT VISIT EST Diagnosis: DM W/O COMPLICATION TYPE II, UNCONTROLLED[ICD9: 250.02] Diagnosis: HYPERTENSION[ICD9: 401.9] Diagnosis: HYPERLIPIDEMIA NEC/NOS[ICD9: 272.4] Diagnosis: DIZZINESS/VERTIGO[ICD9: 780.4] Lita [facility] CPT-4: 65450 05/09/2012 ([id number]) OFFICE/OUTPATIENT VISIT EST Diagnosis: DM W/O COMPLICATION TYPE II, UNCONTROLLED[ICD9: 250.02] Diagnosis: HYPERLIPIDEMIA NEC/NOS[ICD9: 272.4] Diagnosis: HYPERTENSION[ICD9: 401.9] Diagnosis: MALAISE AND FATIGUE[ICD9: 780.79] Lita Segura SFerdinand [facility] CPT-4: 97373 05/06/2012 OFFICE/OUTPATIENT VISIT EST Diagnosis: COUGH[ICD9: 786.2] Diagnosis: SINUSITIS, ACUTE[ICD9: 461.9] Diagnosis: PHARYNGITIS, ACUTE[ICD9: 462] Lita CRAWFORD SFerdinand [facility] CPT-4: 35309 10/02/2011 OFFICE/OUTPATIENT VISIT EST Diagnosis: DM W/O COMPLICATION TYPE II, UNCONTROLLED[ICD9: 250.02] Diagnosis: HYPERLIPIDEMIA NEC/NOS[ICD9: 272.4] Diagnosis: HYPERTENSION[ICD9: 401.9] Diagnosis: COPD[ICD9: 496] Lita CRAWFORD SFerdinand ARCHERNDER DO [facility] CPT- 4: 18692 08/07/2011 OFFICE/OUTPATIENT VISIT EST Lita CRAWFORD S. ORE NDER DO [facility] CPT- 4: 82230 04/03/2011 ([id number]) OFFICE/OUTPATIENT VISIT EST Lita PALACIOS S. ORENDER DO [facility] CPT-4: 27163 01/18/2011 ([id number]) OFFICE/OUTPATIENT VISIT EST Lita PALACIOS S. ORENDER DO [facility] CPT-4: 84536 12/19/2010 ([id number]) OFFICE/OUTPATIENT VISIT, EST Lita Oreelvabev HOLMAN S. ORENDER DO [facility] CPT-4: 94259 04/05/2010 ([id number]) OFFICE/OUTPATIENT VISIT, EST Lita Giannielvabev HOLMAN S. ORENDER DO [facility] CPT-4: 64333 01/13/2010 ([id number]) OFFICE/OUTPATIENT VISIT, EST Lita Giannielvabev ALIZE MANDA S. ORENDER DO [facility] CPT-4: 59560 12/23/2009 ([id number]) OFFICE/OUTPATIENT VISIT, EST Lita Giannielvabev ALIZE MANDA S. ORENDER DO [facility] CPT-4: 52492 12/22/2009 ([id number]) OFFICE/OUTPATIENT VISIT, EST [facility] CPT-4: 69228 12/13/2009 Plan of Care Planned Activity Notes Codes Status Date Visit Diagnosis Plan: Chronic obstructive pulmonary di sease, unspecified Discussion: Add Daliresp 250mcg daily Fwup 4 weeks ICD-9 : 496 ICD-10 : J44.9 03/04/2020 Visit Diagnosis Plan: Chronic obstructive pulmonary [...] : J44.9 02/04/2020 Appointment: Lita Barakat WPtel: [address] [place], [place] [phone] US MEDICATION REVIEW 02/04/2020 Visit Diagnosis Plan: Chronic obstructiv e pulmonary disease with (acute) exacerbation Discussion: Solumedrol 125mg IM Continue SVNs every 4hrs Prednisone for 1 week COVID-19 precautions ICD-9 : 491.21 ICD-10 : J44.1 12/25/2019 Appointment: Lita Barakat WPtel: [address] [place], [place] [phone] FOLLOW UP 12/25/2019 Patient Education: prednisone- [employer] Coupon [id number] https://www.Loaded Pocket.Akira Mobile/Temnosmd/resources/getResource/61/bn5dh2q4-4h9r-711s-31 Completed 12/25/2019 Visit Diagnosis Plan: Noncompliance with [...] M25.561 12/22/2019 Appointment: [facility] [phone] [facility] [facility] 12/22/2019 Patient Education: baclofen- [employer] Coupon [id number] https://www.Privlo/samplemd/resources/getResource/61/qm8zp976-hmq5-8yi8-90 Completed 12/22/2019 Visit Diagnosis Plan: Chronic respiratory [...] C44.310 11/12/2019 Appointment: [facility]ita [facility]at [facility] [phone] [facility] [facility] 11/12/2019 Care Plan: Referral Order SNOMED-CT : 30 7272145 Pending 11/12/2019 Care Plan: Referral Order SNOMED-CT : 30 8208797 Pending 11/12/2019 Visit Diagnosis Plan: Right thyroid nodule Discussion: Check thyroid US ICD-9 : 241.0 ICD-10 : E04.1 09/11/2019 Visit Diagnosis Plan: Chronic obstructive pulmonary di sease, unspecified Discussion: Start Pulmonary Rehab Reviewed results of CT of chest ordered by pulmonology Follow Up: 3 months ICD-9 : 496 ICD-10 : J44.9 09/11/2019 Appointment: Lita Barakat WPtel: [address] [place], [place] [phone] US MEDICATION REVIEW 09/11/2019 Care Plan: US EXAM OF HEAD AND NECK LOIN C : 71220-0 Pending 09/11/2019 Visit Diagnosis Plan: Chronic bronchitis Discussion: A ugmentin for 10 days ICD-9 : 491.9 ICD-10 : J42 08/07/2019 Appointment: Lita Barakat WPtel: [address] [place], [place] [phone] ACUTE ILLNESS 08/07/2019 Visit Diagnosis Plan: Chronic [...] him that overuse of symbicort can cause correction damage and the albuterol is to be used every 4 hours as needed. call office later this week with worsening or no improvement ICD-9 : 491.21 ICD-10 : J44.1 07/14/2019 Appointment: Autumn Oneil [address] [place], [place] [id number] ACUTE ILLNESS 07/14/2019 Visit Diagnosis Plan: [...] : F51.01 07/01/2019 Appointment: Lita Barakat WPtel: [address] [place], [place] [phone] US FOLLOW UP 07/01/2019 Care Plan: CT ABDOMEN W/O DYE LOINC : 36 103-0 Pending 07/01/2019 Care Plan: Referral Order SNOMED-CT : 30 2886050 Pending 07/01/2019 Visit Diagnosis Plan: Weight loss [...] R10.13 06/24/2019 Appointment: Lita Barakat [facility]Ptel[facility] [phone] [facility] [facility] 06/24/2019 Patient Education: Seroquel- [employer] Coupon [id number] https://www.Privlo/sampleRarus Innovations/resources/getResource/61/0bp5b8x7-e878-16i1-21 Completed 06/24/2019 Patient Education: ondansetron HCl- [employer] Coupon [id number] https://www.Privlo/sampleRarus Innovations/resources/getResource/61/2081632h-0815-27k8-m1 Completed 06/24/2019 Care Plan: US EXAM ABDOM COMPLETE LOINC : 78639-5 Pending 06/24/2019 Visit Diagnosis Plan: Chronic insomnia [...] 06/17/2019 Visit Diagnosis Plan: Diplopia Discussion: See ophthjermaine woodardy May need CT scan of head ICD-9 : 368.2 ICD-10 : H53.2 06/17/2019 Appointment: Lita Barakat WPtel: [phone] [place], [place] [phone] US FOLLOW UP 06/17/2019 Appointment: Lita Barakat WPtel: [phone] [place], [place] [phone] US INJECTION 06/10/2019 Appointment: Lita Barakat WPtel: [phone] [place], [place] [phone] US INJECTION 06/02/2019 Appointment: Lita Barakat WPtel: [phone] [place], [place] [phone] US INJECTION 05/27/2019 Appointment: Lita Barakat WPtel: [address] [place], [place] [phone] US INJECTION 05/12/2019 Visit Diagnosis Plan: Anemia, [...] : E55.9 05/08/2019 Appointment: Lita Barakat WPtel: [phone] [id number] FOLLOW UP 05/08/2019 Visit Diagnosis Plan: Pain in right knee Discussion: S top tramadol and tylenol q HS Trial of Hydrocodone 10/325mg po q HS Recheck 1month ICD-9 : 719.46 ICD-10 : M25.561 04/07/2019 Appointment: Lita Barakat WPtel: [facility]8 [id number] Hospital Follow Up 04/07/2019 Visit Diagnosis Plan: [...] : F41.1 03/24/2019 Appointment: Autumn Oneil [address] [place], [place] [id number] ACUTE ILLNESS 03/24/2019 Patient Education: hydroxyzine HCl- [employer] [id number] Completed 03/24/2019 Patient Education: pantoprazole- [employer] [id number] Completed 03/24/2019 Visit Diagnosis Plan: Chronic obstructiv e pulmonary disease with (acute) exacerbation Discussion: 90 mg solumedrol given in of fice. patient's portable oxygen tank was empty. [id number] patient on importance of monitoring oxygen tank [...] : R42 03/21/2019 App[facility]ment[facility] [address] [id number] 03/21/2019 Patient Education: ipratropium-albuterol- OptimizeRX C oupon [id number] https://www.Loaded Pocket.com/samplemd/resources/getResource/61/[email or web address]-[email or web address]-81 Completed 03/21/2019 Visit Diagnosis Plan: Chronic obstructiv [...] 03/13/2019 Appointment: Lita Barakat [facility]Ptel[facility] [address] [facility] AC[facility] ILLNESS 03/13/2019 Patient Education: losartan- Optimize[employer] Coupon [id number] Completed 03/13/2019 Patient Education: nystatin- [employer] Coupon [id number] Completed 03/13/2019 Patient Education: fluconazole- [employer] Coupon [id number] Completed 03/13/2019 Visit Diagnosis Plan: Chronic obstructiv [...] : G25.81 03/10/2019 Appointment: Lita Barakat WPtel: [address] [place], [place] [phone] ACUTE ILLNESS 03/10/2019 Visit Diagnosis Plan: Restless legs syndrome Discussio n: Stop requip Increase sinemet to TID Add children's chewable MV with iron BID Add magnesium oxide 400mg daily Add Lyrica 75mg po q HS Stop trazadone Recheck 3 weeks Follow Up: 3 weeks ICD-9 : 333.94 ICD-10 : G25.81 02/26/2019 Appointment: Lita Barakat WPtel: [address] [place], [place] [phone] ACUTE ILLNESS 02/26/2019 Visit Diagnosis Plan: Primary insomnia Discussion: Tri al of doxepin 10-20mg po q HS prn sleep ICD-9 : 780.52 ICD-10 : F51.01 02/13/2019 Visit Diagnosis Plan: Chronic obstructive pulmonary di sease, unspecified Discussion: Stable Discussed trip to [place]--will get oxygen setup through [facility] ICD-9 : 496 ICD-10 : J44.9 02/13/2019 Appointment: Lita Barakat WPtel: [address] [place], [place] [phone] [place] FOLLOW UP 02/13/2019 Patient Education: doxepin- Optimize[employer] Coupon [id number] https://www.Loaded Pocket.Akira Mobile/samplemd/resources/getResource/61/58i5p77p-24je-690s-1t Completed 02/13/2019 Appointment: Lita Barakat WPtel: [address] [place], [place] [phone] [place] CANCELED 01/20/2019 Visit Diagnosis Plan: Chronic obstructive pulmonary di sease, unspecified Discussion: Stable on oxygen Given Symbicort samples Follow Up: 1 months ICD-9 : 496 ICD-10 : J44.9 01/14/2019 Appointment: Lita Barakat WPtel: [address] [place], [place] [phone] Hospital Follow Up 01/14/2019 Visit Diagnosis Plan: [...] : J96.11 12/25/2018 Appointment: Lita Barakat WPtel: [address] [place] [address] Follow Up 12/25/2018 Appointment: Lita Barakat WPtel: [address] [place], [place] [phone] CANCELED 12/23/2018 Appointment: Ines Banerjee [address] [place], [place] [phone] CANCELED 12/20/2018 Visit Diagnosis Plan: Acute recurrent [...] ICD-10 : I10 12/09/2018 Appointment: Ines Banerjee [facility] LAB 12/09/2018 Patient Education: cefdinir- OptimizeRX Coupon [id number] https://www.Loaded Pocket.Akira Mobile/samplemd/resources/getResource/61/n8106c9e-01cr-5198-63 Completed 12/09/2018 Visit Diagnosis Plan: Candidal stomatitis Discussion: Diflucan for 5 days Hold atorvastatin while taking ICD-9 : 112.0 ICD-10 : B37.0 12/05/2018 Appointment: Lita Barakat WPtel: [address] [place] [address] ACUTE ILLNESS 12/05/2018 Patient Education: fluconazole- OptimizeRX Coupon [id number] https://www.Privlo/sampleRarus Innovations/resources/getResource/61/6l588w92-7ro7-44s4-73 Completed 12/05/2018 Appointment: Lita Barakat WPtel: [address] [place] [address] NO SHOW 11/11/2018 Visit Plan: Saline nasal [...] : J01.91 10/23/2018 Appointment: Lita Barakat WPtel: [address] [place] [address] ACUTE ILLNESS 10/23/2018 Patient Education: prednisone- OptimizeRX Coupon [id number] https://www.Privlo/Loaded Pocket/resources/getResource/61/sr5bc924-fmjb-3480-30 Completed 10/23/2018 Care Plan: A1C HPLC LOINC : 10733-6 Pending 09/10/2018 Care Plan: COMPREHEN METABOLIC PANEL [place] NC : 580[address]-0 Pending 09/10/2018 Care Plan: CBC Pending 09/10/2018 [...] : G25.81 08/21/2018 Appointment: Lita Barakat WPtel: [address] [place] [address] ACUTE ILLNESS 08/21/2018 Care Plan: Referral Order SNOMED-CT : 30 1313345 Pending 08/21/2018 Visit Diagnosis Plan: Chronic obstructiv [...] : G25.81 08/07/2018 Appointment: Lita Barakat WPtel: [address] [place] [address] LM FOLLOW UP 08/07/2018 Appointment: Lita Barakat WPtel: [address] [place] [address] 07/18/18 1210---see note in chart (km) CANCELED 07/18/2018 Visit Diagnosis Plan: Chronic obstructiv e pulmonary disease with acute lower respiratory infection Discussion: Solumedrol 125mg IM Change t o trelagy 1 inhalation daily Use SVNs with albuterol q4hrs To ER this weekend if worsens Monitor weight/swelling ICD-9 : 496 ICD-10 : J44.0 05/23/2018 Appointment: Lita Barakat WPtel: [address] [place] [address] ACUTE ILLNESS 05/23/2018 Patient Education: Patient Medication Summary Completed 05/23/2018 Visit Diagnosis Plan: Candidal stomatitis Discussion: Diflucan for 7 more days--hold atrovastatin while taking ICD-9 : 112.0 ICD-10 : B37.0 05/02/2018 Appointment: Lita Barakat WPtel: [phone] [id number] FOLLOW UP 05/02/2018 Patient Education: Patient Medication [...] ICD-10 : J44.0 04/29/2018 Appointment: Autumn Oneil [address] [place], [place] [id number] ACUTE ILLNESS 04/29/2018 Patient Education: Patient Medication [...] : J44.0 04/22/2018 Appointment: Lita Barakat WPtel: [address] [place] [phone] Hospital Follow Up 04/22/2018 Patient Education: Patient Medication Summary Completed 04/22/2018 Appointment: Lita Barakat WPtel: [address] [place] [phone] 04/09/18 1640---see message in chart from today [...] : M17.11 01/28/2018 Appointment: Lita Barakat WPtel: [address] [place], [place] [phone] ACUTE ILLNESS 01/28/2018 Patient Education: Patient Medication Summary Completed 01/28/2018 Care Plan: Referral Order SNOMED-CT : 30 5394652 Pending 01/28/2018 Care Plan: Referral Order SNOMED-CT : 30 5589766 Pending 01/28/2018 Visit Diagnosis Plan: Functional dyspepsia Discussion: Protonix Call in 1 week on how doing ICD-9 : 536.8 ICD-10 : K30 01/23/2018 Visit Diagnosis Plan: Pain in right knee Discussion: T noemi wong gel QID ICD-9 : 719.46 ICD-10 : M25.561 01/23/2018 Appointment: Lita Barakat WPtel: [address] [place] [address] ACUTE ILLNESS 01/23/2018 Patient Education: Patient Medication [...] : N39.0 01/02/2018 Appointment: Lita Barakat WPtel: [address] [place] [address] ACUTE ILLNESS 01/02/2018 Patient Education: Patient Medication [...] ICD-10 : J44.1 12/28/2017 Appointment: Autumn Oneil [address] [place] [address] Consult 12/28/2017 Patient Education: Patient Medication Summary [...] : J20.9 12/21/2017 Appointment: Autumn Oneil [address] ACUTE ILLNESS 12/21/2017 Patient Education: Patient Medication Summary Completed 12/21/2017 Care Plan: X-RAY EXAM OF KNEE 1 [place] 2 [place] : [address]-8 Pending 12/18/2017 Visit Diagnosis Plan: Pain in [...] : J44.0 12/17/2017 Appointment: Autumn Oneil [address] [phone] ACUTE ILLNESS 12/17/2017 Patient Education: Patient Medication Summary Completed 12/17/2017 Visit Diagnosis Plan: Unilateral primary osteoarthriti s, right knee Discussion: Right knee injection as above Warned of elevated BS after injection ICD-9 : 715.96 ICD-10 : M17.11 12/11/2017 Appointment: Lita Barakat WPtel: [address] [place] [address] OFFICE SURGERY 12/11/2017 Patient Education: Patient Medication Summary Completed 12/11/2017 Visit Diagnosis Plan: Actinic keratosis Discussion: Cr yotherapy as above If persists then will need excision by Dr. Swanson ICD-9 : 702.0 ICD-10 : L57.0 11/07/2017 Appointment: Lita Barakat WPtel: [address] [place] [address] ACUTE ILLNESS 11/07/2017 Patient Education: Patient Medication [...] : S61.411S 10/17/2017 Appointment: Lita Barakat WPtel: [address] [place] [address] ER Follow UP 10/17/2017 Patient Education: Patient Medication Summary Completed 10/17/2017 Appointment: Lita Barakat WPtel: [address] [place] [address] Consult 08/15/2017 Visit Diagnosis Plan: Chronic obstructiv [...] ICD-10 : J44.0 08/02/2017 Appointment: Autumn Oneil [address] [place] [address] ACUTE ILLNESS 08/02/2017 Patient Education: Patient Medication Summary Completed 08/02/2017 Patient Education: Patient Medication Summary Completed 07/31/2017 Care Plan: CHEST X-RAY 2VW FRONTAL&LATL LOINC : 38242-4 Pending 07/31/2017 Appointment: Lita Barakat WPtel: [address] [place], [place] [phone] [place] INJECTION 07/24/2017 Patient Education: Patient Medication [...] ICD-10 : J44.1 07/02/2017 Appointment: Autumn Oneil [address] [place] [address] ACUTE ILLNESS 07/02/2017 Patient Education: Patient Medication Summary Completed 07/02/2017 Care Plan: CHEST X-RAY 2VW FRONTAL&LATL LOINC : 43564-6 Pending 07/02/2017 Care Plan: MRI LUMBAR SPINE W/O DYE LOIN C : 07297-9 Pending 05/30/2017 Visit Plan: MRI at [facility] [place] codone 5.325 1 po q 4-6 hours prn pain #40 NR and Cyclobenzaprine (ERx) Continue warm packs for pain RTC if no improvement 05/29/2017 Appointment: Ruchi Buchanan WPtel: [address] [place], [place] [phone] ACUTE ILLNESS 05/29/2017 Patient Education: Patient Medication Summary Completed 05/29/2017 Appointment: Lita Barakat WPtel: [address] [place], [place] [phone] [place] CANCELED 05/24/2017 Patient Education: Patient Medication Summary Completed 05/22/2017 Care Plan: X-RAY EXAM L-S SPINE 2/3 VWS LOINC : 26508-7 Pending 05/22/2017 Appointment: Lita Barakat WPtel: [address] [place] [address] US LAB 04/17/2017 Patient Education: Patient Medication Summary Completed 04/17/2017 Referral: Dmeetrius Benjamin WPtel: [address] [place] [address] Referral Initiated 04/05/2017 Appointment: Lita Barakat WPtel: [address] [place] [address] 03/30/17 0930---spoke with patient about ointments (km Consult 03/30/2017 Appointment: Lita Barakat WPtel: [address] [place] [address] 03/29/17 1320---spoke with patient, requip refilled wasn't received at pharmacy so verbally called (km) Consult 03/29/2017 Patient Education: Patient Medication Summary Completed 03/01/2017 Care Plan: CHEST X-RAY 2VW FRONTAL&LATL LOINC : 37879-2 Pending 03/01/2017 Visit Diagnosis Plan: Bursitis of left shoulder Discus yesi: Injection as above ICD-9 : 726.10 ICD-10 : M75.52 02/01/2017 Appointment: Lita Barakat WPtel: [address] [place] [address] 01/31 confirmed ~sl WORK IN 02/01/2017 Patient Education: Patient Medication Summary Completed 02/01/2017 Care Plan: X-RAY EXAM OF SHOULDER LOINC : 00772-2 Pending 01/30/2017 Visit Plan: May take OTC Tylenol/Ibuprof en as directed XRay at [facility] of left shoulder Tramadol 50mg 1 po q 6 hours prn [facility]. Sedation warning given (no driving, etc) RTC if no improvement 01/29/2017 Appointment: Ruchi Buchanan WPtel: [address] [place] [address] ACUTE ILLNESS 01/29/2017 Appointment: Chanel Ruchi WPtel: [address] [place] [address] ACUTE ILLNESS 01/29/2017 Patient Education: Patient Medication Summary Completed 01/29/2017 Appointment: Lita Barakat WPtel: [address] [place] [address] [place] Consult 01/10/2017 Appointment: Lita Barakat WPtel: [address] [place] [address] 12/27/2016 Patient Education: Patient Medication Summary Completed [...] : R53.83 12/21/2016 Appointment: Lita Barakat WPtel: [address] [place] [address] ACUTE ILLNESS 12/21/2016 Patient Education: Patient Medication Summary Completed 12/21/2016 Appointment: Lita Barakat WPtel: [address] [place] [address] CANCELED 12/18/2016 Visit Diagnosis Plan: Restless legs [...] : D64.9 12/14/2016 Appointment: Lita Barakat WPtel: [address] [place], [place] [id number] 12/13 confirmed ~sl WORK IN 12/14/2016 Appointment: Lita Barakat WPtel: [address] [place], [place] [id number] [place] CANCELED 12/14/2016 Patient Education: Patient Medication Summary Completed 12/14/2016 Appointment: Lita Barakat WPtel: [address] [place] [id number] [place] LAB 12/12/2016 Patient Education: Patient Medication Summary Completed 12/12/2016 Appointment: Lita Barakat WPtel: [address] [place] [phone] in ER this weekend--called for reports Consult 12/11/2016 Appointment: Lita Barakat WPtel: [address] [place], [place] [id number] [place] CANCELED 12/04/2016 Visit Diagnosis Plan: Pneumonia, [...] ICD-10 : G25.81 11/14/2016 Appointment: Magda Toth [address] [place], [place] [phone] MEDICATION REVIEW 11/14/2016 Patient Education: Patient Medication Summary Completed 11/14/2016 Appointment: Lita Barakat WPtel: [address] [place], [place] [phone] [place] RESCHEDULED 11/02/2016 Visit Diagnosis Plan: Candidal stomatitis Discussion: Diflucan and Nystatin Hold atorvastatin while taking diflucan ICD-9 : 112.0 ICD-10 : B37.0 10/31/2016 Appointment: Lita Barakat WPtel: [address] [place], [place] [phone] ACUTE ILLNESS 10/31/2016 Patient Education: Patient Medication Summary Completed 10/31/2016 Appointment: Lita Barakat WPtel: [address] [place] [phone] [place] Consult 10/23/2016 Appointment: Lita Barakat WPtel: [address] [place] [phone] [place] CANCELED 10/18/2016 Visit Plan: Rx as above Wear O2 at all t imes as instructed by Dr Chacon Continue breathing treatments Supportive care otherwise reviewed Follow up ingrid if not improving 10/03/2016 Appointment: Lita Barakat WPtel: [address] [place] [phone] [place] CANCELED 10/03/2016 Appointment: Magda Toth [address] [place], [place] [phone] ACUTE ILLNESS 10/03/2016 Patient Education: Patient Medication Summary Completed 10/03/2016 Visit Plan: Titrate requip to 1.5mg x 1 week Call if not helpful and will increase to 2mg qHS NO MORE nyquil at bedtime - discussed potential effects of decongestants on heart, oversedating himself, etc Will increase requip, then amitriptyline if needed to desired effect 09/04/2016 Appointment: Magda Toth [address] [place], [place] [phone] ACUTE ILLNESS 09/04/2016 Patient Education: Patient Medication Summary Completed 09/04/2016 Visit Plan: Stop requip and try elavil C ryotherapy as above See ENT for removal of right ear lesion 08/22/2016 Appointment: Lita Barakat WPtel: [address] [place] [address] ACUTE ILLNESS 08/22/2016 Patient Education: Patient Medication Summary Completed 08/22/2016 Visit Plan: Trial of requip 1mg q HS Res tart zoloft Recheck 1month 08/10/2016 Appointment: Lita Barakat WPtel: [address] [place] [address] ACUTE ILLNESS 08/10/2016 Patient Education: Patient Medication Summary Completed 08/10/2016 Visit Plan: Stop HCTZ Flagyl for diarrhe a Hydrate Discussed meds for restless legs Zofran prn Nausea 07/06/2016 Appointment: Lita Barakat WPtel: [address] [place] [address] 07/05 confirmed~ Hospital Follow Up 07/06/2016 Patient Education: Patient Medication Summary Completed 07/06/2016 Visit Plan: Reviewed with Dr Yuval Palacios sidering his recent history, instructed him to go straight to the ER called to notify her so she can meet him there 06/22/2016 Appointment: Navneet Magda [address] [place] [address] ACUTE ILLNESS 06/22/2016 Patient Education: Patient Medication Summary Completed 06/22/2016 Visit Plan: Continue current meds Prevna r 13 and High Dose Flu given 06/13/2016 Appointment: Lita Barakat WPtel: [address] [place] [address] 06/13 confirmed~ WORK IN 06/13/2016 Patient Education: Patient Medication Summary Completed 06/13/2016 Appointment: Lita Barakat WPtel: [address] [place] [address] US just went over current medications CANCELED 06/08/2016 Visit Plan: Reviewed POC with Dr Barakat Stat cbc, cmp, d dimer, troponin, bnp, ekg, cxr If any worsening of symptoms while awaiting results, patient instructed to go to ER or call 911 06/01/2016 Appointment: Magda Toth [address] [place], [place] [phone] ACUTE ILLNESS 06/01/2016 Patient Education: Patient Medication Summary Completed 06/01/2016 Referral: José Miguel Swanson WPtel: [address] 04/[address] swanson's office, patient [...] eval and treatment 04/26/2016 Appointment: Magda Toth [address] [place] [address] ACUTE ILLNESS 04/26/2016 Patient Education: Patient Medication Summary Completed 04/26/2016 Care Plan: Referral Order SNOMED-CT : 30 5344494 Pending 04/26/2016 Visit Plan: Left ear flushed after conse nt with warm water with peroxide with ear syringe Patient tolerated well Ear exam is wnl following flushing Follow up PRN 04/05/2016 Appointment: Magda Toth [address] [place] [address] ACUTE ILLNESS 04/05/2016 Patient Education: Patient Medication Summary Completed 04/05/2016 Visit Plan: Increase Levemir to 25u sc d aily Increase sertraline to 2 full tablets daily--200mg Debrox or cerumenex to bilateral ears q HS for 3 nights then flush or fwup for fushing Check lab in 2mos then fwup 04/03/2016 Appointment: Lita Barakat WPtel: [address] [place], [place] [phone] 03/31 7/ lm ~sl FOLLOW UP 04/03/2016 Patient Education: Patient Medication Summary Completed 04/03/2016 Visit Plan: Patient informed of correct dosage of levemir and how to administer. Patient verbalizes understanding and will call if any questions/concerns. 10 Units of Levemir given in office SC to right lower abdom en. Patient tolerated well. Site without redness/irritation. 03/13/2016 Appointment: Lita Barakat WPtel: [phone] [id number] SPECIAL 03/13/2016 Patient Education: Patient Medication Summary Completed 03/13/2016 Appointment: Lita Barakat WPtel: [phone] [id number] LAB 03/06/2016 Patient Education: Patient Medication Summary Completed 03/06/2016 Visit Plan: Patient saw Dr. Chacon this week and was given prednisone taper for COPD Continue current meds Accuchecks daily Patient will return on Sunday morning for fasting lab incuding CBC, CMP, TSH, free T4, HbA1C, Lipids, Testosterone, PSA 03/02/2016 Appointment: Lita Barakat WPtel: [address] [place], [place] [address] 03/01 confirmed ~sl FOLLOW UP 03/02/2016 Patient [...] how doing 02/17/2016 Appointment: Lita Barakat WPtel: [address] [place], [place] [phone] WORK IN 02/17/2016 Patient Education: Patient Medication Summary Completed 02/17/2016 Visit Plan: Xrays to further evaluate Alvarez spect heel spur(s) Will call with results Has had injections in the past that were helpful Dr Barakat can do them or can refer to podiatry if warranted 02/14/2016 Appointment: Magda Toth [address] [place], [place] [id number] ACUTE ILLNESS 02/14/2016 Patient Education: Patient Medication Summary Completed 02/14/2016 Visit Plan: Increase Zoloft to 150mg cooper ly 01/31/2016 Appointment: Lita Barakat WPtel: [address] [place], [place] [phone] 01/26 confirmed `sl FOLLOW UP 01/31/2016 Patient Education: Patient Medication Summary Completed 01/31/2016 Visit Plan: Decrease citalopram to 20mg q AM for 1 week then stop Start zoloft 50mg q HS for 1 week then increase to 100mg q HS 12/30/2015 Appointment: Lita Barakat WPtel: [address] [place] [phone] 12/28 confirmed~sl ACUTE ILLNESS 12/30/2015 Patient Education: Patient Medication Summary Completed 12/30/2015 Visit Plan: Check Neck US 12/16/2015 Appointment: Lita Barakat WPtel: [address] [place] [phone] 12/14 lm ~sl 12/15 confirmed-sp FOLLOW UP 12/16/2015 Patient Education: Patient Medication Summary Completed 12/16/2015 Care Plan: US EXAM OF HEAD AND NECK LOIN C : 98788-6 Ordered 12/16/2015 Appointment: Stephanie Rios WPtel: [address] [place], [place] [phone] 12/09 confirmed-sp 12/12 lm ~sl Patient r eturn call and stated he just plain forgot ~sl FOLLOW UP 12/13/2015 Visit Plan: Had changing lesions of fore head and left mastoid area removed earlier today. Follow-up in one week Will proceed with soft tissue ultrasound of neck/ left cervical lymph node if no improvement antibiotics Clindamycin 300mg PO TID 12/06/2015 Appointment: Stephanie Rios WPtel: [address] [place], [place] [phone] ACUTE ILLNESS 12/06/2015 Patient Education: Patient Medication Summary Completed 12/06/2015 Referral: Lisbeth Darby WPtel: [facility] [phone] [id number] 11/18/15 called luther at [facility] office and confirmed time and date of appointment with patient~sl Initiated 11/18/2015 Visit Plan: Referral to Dermatology for removal of facial skin lesions Cefdinir PO bid Topical Mupirocin to skin lesions bid 11/15/2015 Appointment: Stephanie Rios WPtel: [address] [place], [place] [phone] ACUTE ILLNESS 11/15/2015 Patient Education: Patient Medication Summary Completed 11/15/2015 Visit Plan: Continue current meds Accuch ecks daily Fwup with ophthamology as scheduled Will check lab in 3mos then fwup due to recent meds that will affect blood sugar 10/05/2015 Appointment: Lita Barakat WPtel: [address] [place], [place] [phone] 10/04/15 appt confirmed cn Annual Well Visit 08/2016 Patient Education: Patient Medication Summary Completed 10/05/2015 Visit Plan: Trajenta -1 sample box given Return visit in 6 weeks for fasting labs Notify for worsening symptoms such as Increased redness, swelling, pain or drainage of Rt. knee 07/22/2015 Appointment: Stephanie Rios WPtel: [address] [place], [place] [phone] 07/21 vm left cn FOLLOW UP 07/22/2015 Patient Education: Patient Medication Summary Completed 07/22/2015 Visit Plan: Continue to change dressing twice daily and apply Mupirocin Complete Doxycycline as directed. Follow-up for worsening symptoms, such as increased swelling, redness or pain. 07/01/2015 Appointment: Stephanie Rios WPtel: [facility] FOLLOW UP 07/01/2015 Patient Education: Patient Medication Summary Completed 07/01/2015 Visit Plan: Pressure dressing applied to draining wound left knee. Instructed to change dressing twice daily and continue Mupirocin topical Doxycycline PO bid x 10 days Wound culture obtained. Wound tissue sent to pathology Follow-up in 3 days 06/28/2015 Appointment: Stephanie Rios WPtel: [phone] [facility] 06/28/2015 Patient Education: Patient Medication Summary Completed 06/28/2015 Visit Plan: Complete antibiotics Follow- up for increased tenderness, swelling or drainage. 06/09/2015 Appointment: Gabriel Stephanie M WPtel: [address] [place], [place] [phone] 06/08/15 lm FOLLOW UP 06/09/2015 Patient Education: Patient Medication Summary Completed 06/09/2015 Visit Plan: Apply pressure dressing toda y Continue antibiotics and topical Mupirocin Follow-up in 2 days Bursa drained from open area using pressure--serosanguinous drainage 06/07/2015 Appointment: Stephanie Rios WPtel: [facility] 06/04/15 confirmed with patient FOLLOW UP 0 06/07/2015 Patient Education: Patient Medication Summary Completed 06/07/2015 Visit Plan: Wound culture Lt. knee Apply mupirocin to open wound bid Clindamycin 600 mg PO bid x 10 days Follow-up on Sunday06/03/2015 Appointment: Gabriel Stephanie M WPtel: [address] [place], [place] [phone] ACUTE ILLNESS 06/03/2015 Patient Education: Patient Medication Summary Completed 06/03/2015 Visit Plan: Accuchecks daily Check CMP, HbA1C today Patient is noncompliant with meds and diet but patient says he is doing everything he is supposed to do Wants to try performomist instead of albuterol in SVN 06/01/2015 Appointment: Lita Barakat WPtel: [address] [place], [place] [phone] 05/28 appt confirmed cn FOLLOW UP 06/01/20 Patient Education: Patient Medication Summary Completed 06/01/2015 Visit Plan: Change Breo Ellipta to Advai r 500/50 1 p BID this next month Continue turdoza Use albuterol prn Check CMP, HbA1C today Accuchecks daily Cryotherapy as above 02/25/2015 Appointment: Lita Barakat WPtel: [address] [place], [place] [phone] 02/24 appt confirmed and explained needed payment he said ok FOLLOW UP 02/25/2015 Patient Education: Patient Medication Summary Completed 02/25/2015 Referral: Lopez Chacon [address] [id number] [place] Will put patient on cancellation list Initiated 12/08/2014 Appointment: Lita Barakat WPtel: [address] [place], [place] [phone] [place] [address] Follow Up 10/29/2014 Visit Plan: Finish prednisone Continue S VNs with albuterol QID See pulmonology and start Pulmonary rehab Once again discussed taking it easy this winter--that he is high risk for exacerbation 10/27/2014 Appointment: Lita Barakat WPtel: [address] [place] [address] FOLLOW UP 10/27/2014 Patient Education: Patient Medication Summary Completed 10/27/2014 Appointment: Lita Barakat WPtel: [address] [place] [address] FOLLOW UP 10/26/2014 Appointment: Stephanie Rios WPtel: [address] [place], [place] [phone] WORK IN 10/21/2014 Patient Education: Patient Medication Summary Completed 10/21/2014 Patient Education: Patient Medication Summary Completed 10/19/2014 Visit Plan: Continue oxygen and SVNS wit h duoneb Increase farxiga to 10mg daily Diflucan 100mg daily for 1week 10/06/2014 Appointment: Lita Barakat WPtel: [address] [place], [place] [phone] [facility] [place] 2:45pm FOLLOW UP 2014 Patient Education: Patient Medication Summary Completed 10/06/2014 Visit Plan: Finish omnicef Continue Breo BID and Turdoza Use SVNS with duoneb at least TID for next 2weeks then go to prn 09/21/2014 Appointment: Lita Barakat WPtel: [address] [place] [phone] Hospital Follow Up 09/21/2014 Patient Education: Patient Medication Summary Completed 09/21/2014 Patient Education: [facility] - [employer]aving [employer] - Ventolin HFA - 18+ - Dynamic Portal ID Completed 09/21/2014 Appointment: Stephanie Rios WPtel: [address] [place], [place] [phone] Scheduled by 09/07 patient rescheduled to 09/08 with Stephanie. Hospital Follow Up 09/08/2014 Patient Education: Patient Medication Summary Completed 09/08/2014 Appointment: Stephanie Rios WPtel: [address] [place], [place] [phone] FOLLOW UP 09/02/2014 Patient Education: Patient Medication Summary Completed 09/02/2014 Patient Education: [employer] - Antibi otics, Analgesics 18+, Oral Contraceptives F 18+ Completed 09/02/2014 Appointment: Lita Barakat WPtel: [address] [place], [place] [phone] UA 08/27/2014 Patient Education: Patient Medication Summary [...] prn sleep 08/10/2014 Appointment: Lita Barakat WPtel: [address] [place], [place] [phone] Annual Well Visit 08/10/2014 Patient Education: Patient Medication Summary Completed 08/10/2014 Appointment: Lita Barakat WPtel: [address] [place], [place] [phone] LAB 08/05/2014 Patient Education: Patient Medication Summary Completed 08/05/2014 Visit Plan: ECHO results reviewed Contin ue Breo and Turdoza Pt starts PT this afternoon for back--has had one epidural with no help in pain 05/05/2014 Appointment: Lita Barakat WPtel: [address] [place] [address] FOLLOW UP 05/05/2014 Patient Education: Patient Medication Summary Completed 05/05/2014 Visit Plan: Continue Breo and Turdoza Camargo s heart tests scheduled next week Will see surgeon for removal of skin cancer to neck after done with cardiac workup 03/24/2014 Appointment: Lita Barakat WPtel: [address] [place] [address] FOLLOW UP 03/24/2014 Patient Education: Patient Medication Summary Completed 03/24/2014 Visit Plan: Proceed with cardiology eval uation as patient is has numerous risk factors for CAD Change Symbicort to Breo 1p BID and add Turdorza 1p BID Recheck in weeks Check 2-D ECHO and lexiscan 03/10/2014 Appointment: Lita Barakat WPtel: [address] [place] [address] FOLLOW UP 03/10/2014 Patient Education: Patient Medication Summary Completed 03/10/2014 Visit Plan: Shoulder injection as above Back brace to use when doing any lifting for stability 12/16/2013 Appointment: Lita Barakat WPtel: [address] [place] [address] ACUTE ILLNESS 12/16/2013 Patient Education: Patient Medication Summary Completed 12/16/2013 Visit Plan: Continue symbicort and Turdo za Salt water gargles Omnicef 300mg 2 po daily for 1wk Phenergan with codeine 10/09/2013 Appointment: Lita Barakat WPtel: [address] [place], [place] [phone] WORK IN 10/09/2013 Patient Education: Patient Medication Summary Completed 10/09/2013 Appointment: Ruchi Buchanan WPtel: [address] [place], [place] [phone] ACUTE ILLNESS 09/18/2013 Patient Education: Patient Medication Summary Completed 09/18/2013 Visit Plan: Check on repeat CXR Finish a bx Start Tradjenta to replace metformin 08/13/2013 Appointment: Lita Barakat WPtel: [address] [place], [place] [phone] 08/12 Hospital Follow Up 08/13/2013 Patient Education: Patient Medication Summary Completed 08/13/2013 Visit Plan: Admit to hospital 08/06/2013 Appointment: Stephanie Rios WPtel: [address] [place] [address] ACUTE ILLNESS 08/06/2013 Patient Education: Patient Medication Summary Completed 08/06/2013 Visit Plan: Continue current meds Contin ue accuchecks daily Proceed with stress test due to high risk for CAD 07/16/2013 Appointment: Lita Barakat WPtel: [address] [place] [address] FOLLOW UP 07/16/2013 Patient Education: Patient Medication Summary Completed 07/16/2013 Appointment: Lita Barakat WPtel: [address] [place] [address] LAB 06/25/2013 Patient Education: Patient Medication Summary Completed 06/25/2013 Visit Plan: prednisone and azithromycin. Doing CBC and mycoplasma blood draw. Will continue inhaler and albuterol breathing treatments. 04/09/2013 Appointment: Kimberly Villalba WPtel: [address] [place], [place] [phone] ACUTE ILLNESS 04/09/2013 Patient Education: Patient Medication Summary Completed 04/09/2013 Appointment: Lita Barakat WPtel: [address] [place], [place] [phone] ACUTE ILLNESS 02/11/2013 Patient Education: Patient Medication Summary Completed 02/11/2013 Appointment: Ruchi Buchanan WPtel: [address] [place] [address] ACUTE ILLNESS 01/31/2013 Patient Education: Patient Medication Summary Completed 01/31/2013 Visit Plan: Cefdinir and medrol dose pac k. Codeine/guiaf cough syrup. Has colonoscopy on Sunday. Pt. is to notify if fever occurs or symptoms worsen. Hydration and rest. 01/20/2013 Appointment: Kimberly Villalba WPtel: [address] [place] [address] ACUTE ILLNESS 01/20/2013 Patient Education: Patient Medication Summary Completed 01/20/2013 Visit Plan: Scopalamine patch and vestib ular exercises 12/19/2012 Appointment: Lita Barakat WPtel: [address] [place] [address] ACUTE ILLNESS 12/19/2012 Patient Education: Patient Medication Summary Completed 12/19/2012 Visit Plan: Dr. Swanson consult if no impr ovement in hearing. Pt. reports he will notify if no better in one week. Willam consult for skin lesion. 10/21/2012 Appointment: Kimberly Villalba WPtel: [address] [place] [address] ACUTE ILLNESS 10/21/2012 Patient Education: Patient Medication Summary Completed 10/21/2012 Appointment: Lita Barakat WPtel: [address] [place], [place] [phone] [place] LAB 09/19/2012 Patient Education: Patient Medication Summary Completed 09/19/2012 Visit Plan: Check fasting lab in AM--CMP , Lipids, HbA1C 09/18/2012 Appointment: Lita Barakat WPtel: [address] [place] [address] FOLLOW UP 09/18/2012 Patient Education: Patient Medication Summary Completed 09/18/2012 Appointment: Lita Barakat WPtel: [address] [place] [address] appt time scheduled sooner FOLLOW UP 09/05 Visit Plan: Doxycycline and Prednisone I ncrease SVN to QID Add back Symbicort 160/4.5 2 p BID 08/28/2012 Appointment: Lita Barakat WPtel: [address] [place], [place] [phone] [place] FOLLOW UP 08/28/2012 Patient Education: Patient Medication Summary Completed 08/28/2012 Appointment: Lita Barakat WPtel: [address] [place] [address] Annual Well Visit 07/10/2012 Patient Education: Patient Medication Summary Completed 07/10/2012 Visit Plan: Finish Z-pack Add Nasonex Ad d Meclizine Vestibular exercises Continue current meds and accuchecks Check lab and fwup in 4mos 05/09/2012 Appointment: Lita Barakat WPtel: [address] [place] [address] number no longer works FOLLOW UP 2 Patient Education: Patient Medication Summary Completed 05/09/2012 Appointment: Lita Barakat WPtel: [address] [place], [place] [phone] LAB 05/06/2012 Patient Education: Patient Medication Summary Completed 05/06/2012 Appointment: Lita Barakat WPtel: [address] [place] [phone] [place] LAB 05/02/2012 Appointment: Lita Barakat WPtel: [address] [place], [place] [phone] [place] INJECTION 02/05/2012 Patient Education: Patient Medication Summary Completed 02/05/2012 Visit Plan: cefdinir. Will focus on rest and fluids. Pt. reports he is using breathing treatments as needed. Pt. will monitor for worsening symptoms or fever. 10/02/2011 Appointment: Kimberly Villalba WPtel: [address] [place], [place] [phone] ACUTE ILLNESS 10/02/2011 Patient Education: Patient Medication Summary Completed 10/02/2011 Appointment: Lita Barakat WPtel: [address] [place], [place] [id number] [place] INJECTION 08/10/2011 Patient Education: Patient Medication Summary Completed 08/10/2011 Visit Plan: Continue current meds Restar t Advair Restart exercise Flu shot given 08/07/2011 Appointment: Lita Barakat WPtel: [address] [place] [phone] [place] FOLLOW UP 08/07/2011 Patient Education: Patient Medication Summary Completed 08/07/2011 Appointment: Lita Barakat WPtel: [address] [place] [phone] [place] LAB 07/26/2011 Patient Education: Patient Medication Summary Completed 07/26/2011 Visit Plan: ALEKSANDER Carmen Continue Metformin but change to BID Add Lantus 25u sc q PM BS readings in 1wk 04/03/2011 Appointment: Lita Barakat WPtel: [address] [place], [place] [phone] ACUTE ILLNESS 04/03/2011 Patient Education: Patient Medication Summary Completed 04/03/2011 Appointment: Lita aBrakat WPtel: [address] [place] [phone] [place] INJECTION 01/19/2011 Patient Education: Patient Medication Summary Completed 01/19/2011 Appointment: Lita Barakat WPtel: [address] [place] [phone] ACUTE ILLNESS 01/18/2011 Patient Education: Patient Medication Summary Completed 01/18/2011 Appointment: Lita Barakat WPtel: [address] [place] [phone] [place] INJECTION 12/21/2010 Patient Education: Patient Medication Summary Completed 12/21/2010 Appointment: Lita Barakat WPtel: [address] [place] [phone] [place] FOLLOW UP 12/19/2010 Patient Education: Patient Medication Summary Completed 12/19/2010 Appointment: Lita Barakat WPtel: [address] [place] [phone] [place] LAB 12/07/2010 Patient Education: Patient Medication Summary Completed 12/07/2010 Appointment: Kimberly Villalba WPtel: [address] [place], [place] [phone] ACUTE ILLNESS 04/05/2010 Patient Education: Patient Medication Summary Completed 04/05/2010 Appointment: Lita Barakat WPtel: [address] [place] [phone] WORK IN 03/14/2010 Patient Education: Patient Medication Summary Completed 03/14/2010 Appointment: Lita Barakat WPtel: [address] [place] [phone] [place] LAB 03/02/2010 Visit Plan: HbA1C in 3mos. Continue Accu checks BID alternating times. Switch lexapro to celexa 01/13/2010 Appointment: Lita Barakat WPtel: [address] [place] [address] FOLLOW UP 01/13/2010 Patient Education: Patient Medication Summary Completed 01/13/2010 Appointment: Lita Barakat WPtel: [address] [place], [place] [phone] [place] FOLLOW UP 01/11/2010 Visit Plan: Pt. will continue the Avalox and Doxycycline regimen as prescribed the previous day. He has been advised to continue inhalers, breathing treatments and oxygen therapy for at least the weekend. Moderate activity without strenuous exercise. The pt. will seek immediate re-eval if his symptoms worsen. 12/23/2009 Appointment: Kimberly Villalba WPtel: [address] [place], [place] [phone] [place] FOLLOW UP 12/23/2009 Patient Education: Patient Medication [...] tomorrow morning. 12/22/2009 Appointment: Kimberly Villalba WPtel: [address] [place] [address] ACUTE ILLNESS 12/22/2009 Patient Education: Patient Medication Summary Completed 12/22/2009 Appointment: Kimberly Villalba WPtel: [address] [place] [address] FOLLOW UP 12/21/2009 Appointment: Lita Barakat WPtel: [address] [place] [address] INJECTION 12/16/2009 Patient Education: Patient Medication Summary Completed 12/16/2009 Appointment: Kimberly Villalba WPtel: [address] [place] [address] ACUTE ILLNESS 12/13/2009 Patient Education: Patient Medication Summary Completed 12/13/2009 Care Plan: X-RAY EXAM OF SHOULDER lt shoulder (pain ra diates across the shoulder) Hand carried orders to [facility] LOINC : 57421-6 Ordered 12/13/2009 Care Plan: X-RAY EXAM THORAC SPINE 2VWS Hand carried order LOINC : 79101-3 Ordered 12/13/2009 Care Plan: X-RAY EXAM RIBS UNI 2 VIEWS Posterior ribs of lt. side Pt. hand carries order to [facility] LOINC : 25218-8 Ordered 12/13/2009 Referral: José Miguel Swanson WPtel: [address] [address] [place] Referral Appointment Requested Referral: José Miguel Swanson WPtel: [address] [address] [place] Referral Appointment Requested Referral: Chandu Quarles WPtel: [address] Quarles for screening colonoscopy. Diane gerber notified that [place] office will book appt with him Initiated Referral: Santosh Machado WPtel: #1 [facility] [place] [address] [address] [place] Referral Appointment Requested Referral: José Miguel Swanson WPtel: [address] [address] [place] Referral Initiated Referral: Lopez Chacon [facility] C&D [address] Referral Initiated Referral: Demetrius Benjamin WPtel: [address] [address] [place] Referral Appointment Requested Referral: José Miguel Swanson WPtel: [address] [address] [place] Referral Appointment Requested Referral: José Miguel Swanson WPtel: [address] [address] [place] Referral Initiated Instructions Comment . Saline nasal flushes prn. Tylenol/Motr in prn headache. Notify if persists/symptoms worsening. . MRI at [facility] Hydrocodone 5.325 1 po q 4-6 hours prn pain #40 NR and Cyclobenzaprine (ERx) Continue warm packs for pain RTC if no improvement . May take OTC Tylenol/Ibuprofen as dire cted XRay at [facility] of left shoulder Tramadol 50mg 1 po q 6 hours prn pain called to [facility]. Sedation warning given (no driving, etc) RTC [...] Advair Restart exercise Flu shot given . ALEKSANDER Carmen Continue Metformin but change to [...]
[2020-03-28 15:48] LABS: ALLENS TEST YES; INSPIRED O2 6 L.; PATIENT TEMP 97.8; VENTILATOR NO
--- OUTSIDE RECORDS SUMMARY | 2020-03-28 15:49 | XMS REPORT | CCD ---
Author Author Leandro Barakat D.O. 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 Name Role Phone Lita Barakat D.O., PP Unavailable CCM Unavailable Summary Purpose Interface Exchange Insurance Providers Payer name Policy type / Coverage type Covered republican ID Effective Begin Date Effective End Date [employer] MEDICARE Medicare Part B [id number] 2019 Unknown Family history Brother Diagnosis Age At Onset Cancer Unknown Father Diagnosis Age At Onset Heart disease Unknown Mother Diagnosis Age At Onset Heart disease Unknown Social History Social History Element Codes Description Effective Dates Tobacco history SNOMED CT: 9254000 Former smoker quit 15 years ago 08/07/2011 [...] R07.9 06/22/2016 Active 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: [...] unit/mL (3 mL) sub cutaneous pen RxNorm: 642819 INJECT 20 UNITS SQ QD 02/26/2020 03/21/2020 Active losartan 100 mg tablet RxNorm: 897256 1TD 02/03/2020 05/02/2020 Active Sinemet CR 50 mg-200 mg tablet,extended release RxNorm: 8343 41 1 Tablet(s) Oral three times a day 02/02/2020 07/31/2020 Active Generic For:*S INEMET CR 50/200 TABLET SA 07/08/2018 3:09:11 PM hydrocodone 10 mg-acetaminophen 325 mg tablet RxNorm: 233927 1 Tablet(s) Oral Q4H as needed for pain 01/29/2020 No Stop Date Active ipratropium 0.5 mg-albuterol 3 mg (2.5 mg base)/3 mL n ebulization soln RxNorm: 1726133 USE 1 VIAL IN NEBULIZER Q4H (THIS REPLACES ALBUTEROL S OLUTION) 01/08/2020 02/06/2020 Inactive prednisone 20 mg tablet RxNorm: 863426 1 Tablet(s) Oral two remy es a day 12/25/2019 01/01/2020 Inactive Levemir FlexTouch U-100 Insulin 100 unit/mL (3 mL) sub cutaneous pen RxNorm: 076071 10 Unit(s) Subcutaneous every night at bedtime 12/22/2019 N o Stop Date Active baclofen 10 mg tablet RxNorm: 523555 1 Tablet(s) Oral QPM for p ain/spasm 12/22/2019 01/21/2020 Inactive ipratropium 0.5 mg-albuterol 3 mg (2.5 mg base)/3 mL n ebulization soln RxNorm: 7710547 USE 1 VIAL IN NEBULIZER Q4H (THIS REPLACES ALBUTEROL S OLUTION) 11/27/2019 12/16/2019 Inactive hydrocodone 10 mg-acetaminophen 325 mg tablet RxNorm: 441409 1 Tablet(s) Oral Q4H as needed for pain 11/13/2019 01/28/2020 Inactive Seroquel 50 mg tablet RxNorm: 952357 1 Tablet(s) Oral QPM as ne eded for sleep 10/07/2019 12/21/2019 Inactive ropinirole 4 mg tablet RxNorm: 929065 3 TABLET(S) BY [facility] DAILY AT BEDTIME FOR RESTLESS LEGS 09/29/2019 12/27/2019 Inactive Generic For:REQU IP 4 MG TABLET 09/29/2019 7:52:42 AM N O T I C E Last quantity doesn't match original quantity ropinirole 4 mg tablet RxNorm: 569283 3 TABLET(S) BY [facility] DAILY AT BEDTIME FOR RESTLESS LEGS 09/26/2019 09/28/2019 Inactive Generic For:REQU IP 4 MG TABLET 09/26/2019 9:08:48 AM N O T I C E Last quantity doesn't match original quantity ipratropium 0.5 mg-albuterol 3 mg (2.5 mg base)/3 mL n ebulization soln RxNorm: 7678062 USE 1 VIAL IN NEBULIZER EVERY FOUR HOURS (THIS REPLACES ALBUTEROL SOLUTION) 09/26/2019 10/15/2019 Inactive Generic For:*DUO NEB 2.5-0.5 MG/3 ML SOLN 09/26/2019 9:08:53 AM hydrocodone 10 mg-acetaminophen 325 mg tablet RxNorm: 800801 1 Tablet(s) Oral Q4H as needed for pain 09/09/2019 09/09/2019 Inactive hydrocodone 10 mg-acetaminophen 325 mg tablet RxNorm: 415990 1 Tablet(s) Oral Q4H as needed for pain 09/09/2019 09/08/2019 Inactive ondansetron HCl 4 mg tablet RxNorm: 991496 1 Tablet(s) Oral QPM for nausea 08/12/2019 10/10/2019 Inactive ipratropium 0.5 mg-albuterol 3 mg (2.5 mg base)/3 mL n ebulization soln RxNorm: 9373077 1 Unit Dose INH Q4H 08/12/2019 09/25/2019 Inactive replaces albuterol solution Augmentin 875 mg-125 mg tablet RxNorm: 201868 1 Tablet(s) Oral two times a day 08/07/2019 08/17/2019 Inactive prednisone 20 mg tablet RxNorm: 985699 1 Tablet(s) Oral QD 08/05/2008/04/2019 Inactive prednisone 20 mg tablet RxNorm: 892324 1 Tablet(s) Oral QD 08/05/2008/06/2019 Inactive Levaquin 500 mg tablet RxNorm: 409691 1 Tablet(s) Oral QD Replaces azithromycin (z-pack) 07/31/2019 08/05/2019 Inactive Levaquin 500 mg tablet RxNorm: 524878 1 Tablet(s) Oral QD Replaces azithromycin (z-pack) 07/21/2019 07/26/2019 Inactive Levaquin 500 mg tablet RxNorm: 580083 1 Tablet(s) Oral QD Replaces azithromycin (z-pack) 07/21/2019 07/20/2019 Inactive Zithromax Z-Gui 250 mg tablet RxNorm: 260633 Tablet(s) Oral 019 07/22/2019 Inactive Zithromax Z-Gui 250 mg tablet RxNorm: 216014 Tablet(s) Oral 07/15/2019 Inactive Symbicort 160 mcg-4.5 mcg/actuation HFA aerosol inhaler RxNo rm: 2304673 2 Puff(s) Inhalation two times a day 07/14/2019 07/14/2019 Inactive Tessalon Perles 100 mg capsule RxNorm: 590159 1 Capsule(s) Oral Q8H as needed 07/14/2019 08/06/2019 Inactive Seroquel 50 mg tablet RxNorm: 202338 1 Tablet(s) Oral QPM as ne eded for sleep 07/01/2019 10/06/2019 Inactive ondansetron HCl 4 mg tablet RxNorm: 398528 1 Tablet(s) Oral QPM for nausea 06/24/2019 07/24/2019 Inactive Seroquel 25 mg tablet RxNorm: 144863 1 Tablet(s) Oral every nig ht at bedtime 06/19/2019 06/18/2019 Inactive Seroquel 25 mg tablet RxNorm: 659093 1 Tablet(s) Oral every nig ht at bedtime 06/19/2019 06/30/2019 Inactive trazodone 150 mg tablet RxNorm: 305907 1/2 Tablet(s) PO QHS as needed for sleep 06/11/2019 06/17/2019 Inactive replaces PA on doxep in trazodone 150 mg tablet RxNorm: 055072 1/2 Tablet(s) PO QHS as needed for sleep 05/12/2019 06/11/2019 Inactive replaces PA on doxep in Vitamin D3 5,000 unit tablet RxNorm: 942594 1 Tablet(s) PO QD 05/09 No Stop Date Active magnesium oxide 400 mg (241.3 mg magnesium) tablet RxNorm: 1 02827 1 Tablet(s) PO QHS 05/09/2019 No Stop Date Active cyanocobalamin (vit B-12) 1,000 mcg/mL injection solution Rx Norm: 647359 1 injection weekly for 4 weeks 1 Milliliter(s) Inj 05/09/2019 12/21/2019 Inactive ferrous sulfate 325 mg (65 mg iron) tablet RxNorm: 978701 1 Tab let(s) PO QD 05/09/2019 12/21/2019 Inactive ropinirole 4 mg tablet RxNorm: 582429 3 TABLET(S) BY [facility] DAILY AT BEDTIME FOR RESTLESS LEGS 03/26/2019 06/23/2019 Inactive Generic For:REQU IP 4 MG TABLET 03/26/2019 11:23:36 AM N O T I C E Last quantity doesn't match original quantity pantoprazole 40 mg tablet,delayed release RxNorm: 147277 Tablet(s) TAKE 1 TABLET BY MOUTH DAILY FOR STOMACH 03/24/2019 06/21/2019 Inactive Gener ic For:PROTONIX 40MG TAB EC 01/03/2019 1:23:44 PM hydroxyzine HCl 10 mg tablet RxNorm: 369602 1 Tablet(s) PO BID as needed 03/24/2019 04/06/2019 Inactive ipratropium-albuterol 0.5 mg-3 mg(2.5 mg base)/3 mL ne bulization soln RxNorm: 1581205 1 Unit Dose INH Q4H 03/21/2019 No Stop Date Active replaces albuterol solution meclizine 12.5 mg tablet RxNorm: 800504 1 Tablet(s) PO BID as neede d 03/21/2019 12/21/2019 Inactive losartan 100 mg tablet RxNorm: 672629 1 Tablet(s) PO QD replace s lisinopril 03/13/2019 09/08/2019 Inactive fluconazole 100 mg tablet RxNorm: 739017 1 Tablet(s) PO QD 03/13/20 19 03/19/2019 Inactive nystatin 100,000 unit/mL oral suspension RxNorm: 886795 5 Unit( s) PO QID 03/13/2019 03/26/2019 Inactive tramadol 50 mg tablet RxNorm: 186284 1 Tablet(s) PO TID as needed for pain TAKE 2 TABS OF EXTRA STRENGTH TYLENOL WITH EACH DOSE 03/10/2019 04/06/2019 Inactive Generic For:*ULTRAM 50 MG TABLET 01/15/2019 4:55:26 PM Sinemet CR 50 mg-200 mg tablet,extended release RxNorm: 8343 41 1 Tablet(s) PO TID 02/26/2019 08/24/2019 Inactive Generic For:*SIN EMET CR 50/200 TABLET SA 07/08/2018 3:09:11 PM trazodone 150 mg tablet RxNorm: 627544 1/2 Tablet(s) PO QHS as needed for sleep 02/13/2019 02/12/2019 Inactive trazodone 150 mg tablet RxNorm: 144650 1/2 Tablet(s) PO QHS as needed for sleep 02/13/2019 02/25/2019 Inactive replaces PA on doxep in doxepin 10 mg capsule RxNorm: 6717307 1-2 Capsule(s) PO QHS prn sleep 02/13/2019 02/13/2019 Inactive Novolog U-100 Insulin aspart 100 unit/mL subcutaneous soluti on RxNorm: 403825 INJECT 10 UNIT(S) SUBCUTANEOUSLY BEFORE MEALS 01/31/2019 05/30/2019 In active 01/31/2019 1:39:10 PM ipratropium-albuterol 0.5 mg-3 mg(2.5 mg base)/3 mL ne bulization soln RxNorm: 4523568 1 Unit Dose INH Q4H 01/17/2019 03/20/2019 Inactive replaces albuterol solution tramadol 50 mg tablet RxNorm: 707524 1 Tablet(s) PO TID as needed for pain TAKE 2 TABS OF EXTRA STRENGTH TYLENOL WITH EACH DOSE 01/15/2019 02/03/2019 Inactive Generic For:*ULTRAM 50 MG TABLET 01/15/2019 4:55:26 PM Sinemet CR 50 mg-200 mg tablet,extended release RxNorm: 8343 41 1 Tablet(s) PO BID 01/03/2019 02/25/2019 Inactive Generic For:*SIN EMET CR 50/200 TABLET SA 07/08/2018 3:09:11 PM losartan 100 mg tablet RxNorm: 304244 1 Tablet(s) PO QD replace s lisinopril 01/03/2019 03/12/2019 Inactive Symbicort 160 mcg-4.5 mcg/actuation HFA aerosol inhaler RxNo rm: 5630385 2 Puff(s) INH BID 01/03/2019 01/02/2019 Inactive pantoprazole 40 mg tablet,delayed release RxNorm: 250394 TAKE 1 TABLET BY MOUTH DAILY FOR STOMACH 01/03/2019 03/23/2019 Inactive Generic For:WV OTONIX 40MG TAB EC 01/03/2019 1:23:44 PM nystatin 100,000 unit/mL oral suspension RxNorm: 357256 Unit(s) 5 Unit(s) PO QID swish and spit 01/02/2019 11/11/2019 Inactive Incruse Ellipta 62.5 mcg/actuation powder for inhalation RxN orm: 9656404 1 Capsule(s) INH QD 12/25/2018 12/21/2019 Inactive Tessalon Perles 100 mg capsule RxNorm: 384455 1 Capsule(s) PO T ID for cough 12/25/2018 02/25/2019 Inactive Medrol (Gui) 4 mg tablets in a dose pack RxNorm: 808591 Tablet(s) PO Use as directed 12/23/2018 01/02/2019 Inactive Levemir FlexTouch U-100 Insulin 100 unit/mL (3 mL) sub cutaneous pen RxNorm: 507594 20 Unit(s) SQ QD with pen needles 12/13/2018 05/11/2019 Inactiv e prednisone 20 mg tablet RxNorm: 171699 1 Tablet(s) PO QD 12/12/2018 0 12/11/2018 Inactive prednisone 20 mg tablet RxNorm: 097611 1 Tablet(s) PO QD 12/12/2018 0 12/16/2018 Inactive promethazine 6.25 mg-codeine 10 mg/5 mL syrup RxNorm: 794677 5 Milliliter(s) PO QHS as needed for cough 12/09/2018 12/18/2018 Inactive cefdinir 300 mg capsule RxNorm: 932268 1 Capsule(s) PO BID 12/10/19 19 12/18/2018 Inactive fluconazole 100 mg tablet RxNorm: 099885 1 Tablet(s) PO QD 12/06/19 19 12/08/2018 Inactive ropinirole 4 mg tablet RxNorm: 887475 3 Tablet(s) PO QHS for re stless legs 12/04/2018 03/03/2019 Inactive Novolog U-100 Insulin aspart 100 unit/mL subcutaneous soluti on RxNorm: 501925 INJECT 10 UNIT(S) SUBCUTANEOUSLY BEFORE MEALS 12/04/2018 01/30/2019 In active 12/04/2018 10:02:42 AM nystatin 100,000 unit/mL oral suspension RxNorm: 520892 5 Unit(s) PO QID swish and spit 11/25/2018 12/18/2018 Inactive ropinirole 4 mg tablet RxNorm: 312278 3 Tablet(s) PO QHS for re stless legs 11/04/2018 12/03/2018 Inactive prednisone 20 mg tablet RxNorm: 510084 1 Tablet(s) PO BID 10/23/2018 10/29/2018 Inactive ropinirole 4 mg tablet RxNorm: 298807 3 Tablet(s) PO QHS for re stless legs 10/14/2018 11/04/2018 Inactive pantoprazole 40 mg tablet,delayed release RxNorm: 416989 1 Tablet(s) PO QD forstomach 10/10/2018 01/02/2019 Inactive Symbicort 160 mcg-4.5 mcg/actuation HFA aerosol inhaler RxNo rm: 2965475 2 Puff(s) INH BID 10/10/2018 01/03/2019 Inactive Novolog U-100 Insulin aspart 100 unit/mL subcutaneous soluti on RxNorm: 264188 INJECT 10 UNIT(S) SUBCUTANEOUSLY BEFORE MEALS 10/10/2018 12/03/2018 In active 10/10/2018 11:30:01 AM Sinemet CR 50 mg-200 mg tablet,extended release RxNorm: 8343 41 1 Tablet(s) PO BID 09/26/2018 01/03/2019 Inactive Generic For:*SIN EMET CR 50/200 TABLET SA 07/08/2018 3:09:11 PM ropinirole 4 mg tablet RxNorm: 404046 2 Tablet(s) PO QHS for re stless legs 09/18/2018 10/13/2018 Inactive metformin ER 1,000 mg tablet,extended release 24hr RxNorm: 1 046301 1 Tablet(s) PO BID 09/09/2018 12/18/2018 Inactive ropinirole 4 mg tablet RxNorm: 902188 2 Tablet(s) PO QHS for re stless legs 08/21/2018 09/17/2018 Inactive doxycycline hyclate 100 mg capsule RxNorm: 4299561 1 Capsule(s) PO BID 08/07/2018 08/13/2018 Inactive ropinirole 4 mg tablet RxNorm: 930026 1 Tablet(s) PO QHS replac es 1mg dose 08/07/2018 08/20/2018 Inactive ropinirole 2 mg tablet RxNorm: 537621 TAKE 3 TABLETS BY MOUTH DAILY AT BEDTIME DO NOT EXCEED 3 TABLETS PER DAY!!!! 07/31/2018 08/06/2018 Inactive Generic For:REQUIP 2 MG TABLET 07/30/2018 3:50:28 PM Symbicort 160 mcg-4.5 mcg/actuation HFA aerosol inhaler RxNo rm: 9814174 2 Puff(s) INH BID 07/12/2018 10/09/2018 Inactive Sinemet CR 50 mg-200 mg tablet,extended release RxNorm: 8343 41 TAKE 1 TABLET BY MOUTH TWICE DAILY 07/08/2018 09/26/2018 Inactive Generic For:*S INEMET CR 50/200 TABLET SA 07/08/2018 3:09:11 PM losartan 100 mg tablet RxNorm: 127443 1 Tablet(s) PO QD replace s lisinopril 06/17/2018 12/13/2018 Inactive Novolog U-100 Insulin aspart 100 unit/mL subcutaneous soluti on RxNorm: 498588 10 Unit(s) SQ AC 06/17/2018 10/09/2018 Inactive albuterol sulfate 2.5 mg/3 mL (0.083 %) solution for n ebulization RxNorm: 775298 Milliliter(s) INH USE 1 VIAL IN NEBULIZE R EVERY FOUR HOURS NEEDED FOR WHEEZING OR SHORTNESS OF BREATH 06/13/2018 01/16/2019 Inactive Generic For:*PROVENTIL 0.83 MG/ML SOLUTN 06/13/2013 2:04:46 PM ropinirole 2 mg tablet RxNorm: 826224 3 Tablet(s) PO QH S DO NOT EXCEED 6MG (3 TABLETS) PER DAY!!!! 06/13/2018 07/31/2018 Inactive atorvastatin 40 mg tablet RxNorm: 385217 Tablet(s) TAKE 1 TABLET BY MOUTH EVERY DAY 05/13/2018 12/18/2018 Inactive Generic For:LIPI TOR 40MG TAB 05/01/2018 8:37:31 AM Sinemet CR 50 mg-200 mg tablet,extended release RxNorm: 8343 41 1 Tablet(s) PO BID 05/08/2018 07/06/2018 Inactive Lidocaine Viscous 2 % mucosal solution RxNorm: 1428825 5 Milliliter(s) PO QID as needed 05/02/2018 08/06/2018 Inactive Diflucan 100 mg tablet RxNorm: 612994 1 Tablet(s) PO QD 05/02/2018 Inactive atorvastatin 40 mg tablet RxNorm: 398714 TAKE 1 TABLET BY MOUTH EVERY DAY 05/01/2018 05/13/2018 Inactive Generic For:LIPITOR 40MG TAB 05/01/2018 8:37:31 AM nystatin 100,000 unit/mL oral suspension RxNorm: 194874 5 Unit(s) PO QID (before meals and at bedtime) 04/24/2018 04/30/2018 Inactive Ventolin HFA 90 mcg/actuation aerosol inhaler RxNorm: 627573 2 Puff(s) INH Q4H as needed one inhaler for home and one inhaler for car 04/23/201812/18 Inactive Mucinex 600 mg tablet, extended release RxNorm: 672575 1 Tablet(s) PO BID for congestion 04/22/2018 05/21/2018 Inactive prednisone 10 mg tablet RxNorm: 357184 Tablet(s) PO as directeds 08/06/2018 Inactive ropinirole 2 mg tablet RxNorm: 311993 3 Tablet(s) PO QH S DO NOT EXCEED 6MG (3 TABLETS) PER DAY!!!! 04/09/2018 05/08/2018 Inactive gabapentin 300 mg capsule RxNorm: 349121 1-2 Capsule(s) PO QHS 02/201804/08/2018 Inactive ropinirole 2 mg tablet RxNorm: 973518 1 Tablet(s) PO QHS 03/28/2018 0 04/08/2018 Inactive gabapentin 300 mg capsule RxNorm: 099255 1-2 Capsule(s) PO QHS 02/2303/29/2018 Inactive gabapentin 300 mg capsule RxNorm: 838543 1-2 Capsule(s) PO QHS 02/2203/13/2018 Inactive gabapentin 300 mg capsule RxNorm: 926856 2 Capsule(s) PO QHS 201703/11/2018 Inactive ropinirole 2 mg tablet RxNorm: 017769 1 Tablet(s) PO QHS 02/28/2018 0 03/28/2018 Inactive ropinirole 2 mg tablet RxNorm: 812644 1 Tablet(s) PO QHS 02/28/2018 0 02/27/2018 Inactive gabapentin 300 mg capsule RxNorm: 773311 1 Capsule(s) PO QHS 201702/27/2018 Inactive pantoprazole 40 mg tablet,delayed release RxNorm: 511311 1 Tablet(s) PO QD forstomach 01/23/2018 05/22/2018 Inactive Voltaren 1 % topical gel RxNorm: 823570 1 Gram(s) TOP QID to ri ght knee 01/23/2018 02/04/2018 Inactive metformin ER 500 mg tablet,extended release 24hr RxNorm: 860 975 2 Tablet(s) PO BID 01/09/2018 12/08/2018 Inactive Requip 1 mg tablet RxNorm: 920356 1 Tablet(s) PO QHS 01/09/201802/27 Inactive prednisone 20 mg tablet RxNorm: 255858 1 Tablet(s) PO T ID for 3 days then 1 po BID for 3 days then one daily for 3 days 01/02/2018 02/03/2018 Inactiv e Levaquin 500 mg tablet RxNorm: 219025 1 Tablet(s) PO QD 01/02/2018 Inactive ProAir HFA 90 mcg/actuation aerosol inhaler RxNorm: 175440 2 Puff(s) INH Q4H as needed 12/28/2017 No Stop Date Active please switch to ventolin if insurance doesn't cover montelukast 10 mg tablet RxNorm: 442718 1 Tablet(s) PO QD 12/28/2017 02/03/2018 Inactive Levaquin 500 mg tablet RxNorm: 681482 1 Tablet(s) PO QD 12/21/2017 Inactive ProAir HFA 90 mcg/actuation aerosol inhaler RxNorm: 680533 2 Puff(s) INH Q4H as needed 12/21/2017 12/27/2017 Inactive please switch to ventolin if insurance doesn't cover doxycycline hyclate 100 mg tablet RxNorm: 494587 1 Tablet(s) PO BID 12/17/2017 12/26/2017 Inactive Levemir FlexTouch U-100 Insulin 100 unit/mL (3 mL) sub cutaneous pen RxNorm: 016577 20 Unit(s) SQ QD with pen needles---Due for labs 12/11/2017 02/03/2018 Inactive Requip 1 mg tablet RxNorm: 003569 1 Tablet(s) PO QHS 12/10/201712/09 Inactive Requip 1 mg tablet RxNorm: 648022 1 Tablet(s) PO QHS 12/10/201701/09 Inactive albuterol sulfate 2.5 mg/3 mL (0.083 %) solution for n ebulization RxNorm: 584220 Milliliter(s) INH USE 1 VIAL IN NEBULIZE R EVERY FOUR HOURS NEEDED FOR WHEEZING OR SHORTNESS OF BREATH 12/05/2017 06/13/2018 Inactive Generic For:*PROVENTIL 0.83 MG/ML SOLUTN 06/13/2013 2:04:46 PM Tudorza Pressair 400 mcg/actuation breath activated RxNorm: 6134863 1 Puff(s) INH BID 12/03/2017 12/10/2017 Inactive Levemir FlexTouch U-100 Insulin 100 unit/mL (3 mL) sub cutaneous pen RxNorm: 445445 10 Unit(s) SQ QD with pen needles---Due for labs 11/16/2017 12/10/2017 Inactive Zofran ODT 4 mg disintegrating tablet RxNorm: 713408 1 Tablet(s) PO Q4H as needed for nausea 10/17/2017 02/04/2018 Inactive Efudex 5 % topical cream RxNorm: 942076 Application TOP QD prn to precancer skin lesions 10/17/2017 02/03/2018 Inactive Sinemet CR 50 mg-200 mg tablet,extended release RxNorm: 8343 41 1 Tablet(s) PO BID 10/17/2017 02/05/2018 Inactive Sinemet CR 50 mg-200 mg tablet,extended release RxNorm: 8343 41 1 Tablet(s) PO QHS 09/25/2017 10/16/2017 Inactive gabapentin 600 mg tablet RxNorm: 614098 1 Tablet(s) PO BID 08/15/20 17 08/14/2017 Inactive gabapentin 600 mg tablet RxNorm: 126037 1 Tablet(s) PO BID 08/15/20 17 12/10/2017 Inactive Novolog U-100 Insulin aspart 100 unit/mL subcutaneous soluti on RxNorm: 213571 10 Unit(s) SQ AC 08/15/2017 02/03/2018 Inactive Novolog 100 unit/mL subcutaneous solution RxNorm: 074715 10 Uni t(s) SQ AC 08/13/2017 08/14/2017 Inactive prednisone 20 mg tablet RxNorm: 295498 2 Tablet(s) PO QD 08/02/2017 1 10/04/2016 Inactive gabapentin 600 mg tablet RxNorm: 388686 Tablet(s) 1 Tab let(s) PO QHS replaces 300mg dose 07/09/2017 08/14/2017 Inactive Breo Ellipta 100 mcg-25 mcg/dose powder for inhalation RxNor m: 3563560 1 Unit Dose INH QD 07/02/2017 08/30/2017 Inactive Tudorza Pressair 400 mcg/actuation breath activated RxNorm: 4105623 1 Puff(s) INH BID 06/18/2017 12/02/2017 Inactive gabapentin 600 mg tablet RxNorm: 062997 1 Tablet(s) PO QHS repl aces 300mg dose 06/14/2017 07/08/2017 Inactive metformin ER 1,000 mg tablet,extended release 24hr RxNorm: 1 711217 1 Tablet(s) PO BID 05/29/2017 01/08/2018 Inactive cyclobenzaprine 5 mg tablet RxNorm: 876644 1 Tablet(s) PO TID 05/2906/07/2017 Inactive metformin ER 1,000 mg tablet,extended release 24hr RxNorm: 8 47312 1 Tablet(s) PO BID 05/25/2017 05/28/2017 Inactive metformin ER 1,000 mg tablet,extended release 24hr RxNorm: 8 55912 1 Tablet(s) PO BID 05/22/2017 05/24/2017 Inactive Amaryl 2 mg tablet RxNorm: 997763 1 Tablet(s) PO BID 05/01/201702/03 Inactive glimepiride 2 mg tablet RxNorm: 144786 1 Tablet(s) PO BID 04/19/2017 02/03/2018 Inactive ferrous sulfate 325 mg (65 mg iron) tablet RxNorm: 140522 1 Tab let(s) PO QHS 04/17/2017 02/03/2018 Inactive Requip 4 mg tablet RxNorm: 045395 1 Tablet(s) PO BID 04/12/201704/11 Inactive Requip 4 mg tablet RxNorm: 589048 1 Tablet(s) PO BID 04/12/201704/15 Inactive Levemir FlexTouch 100 unit/mL (3 mL) subcutaneous insulin pe n RxNorm: 888491 10 Unit(s) SQ QD with pen needles---Due for labs 04/05/2017 11/15/2017 In active Silenor 3 mg tablet RxNorm: 962194 1 Tablet(s) PO QHS 04/05/201709/25 Inactive ropinirole 4 mg tablet RxNorm: 485134 1 Tablet(s) PO QHS 03/29/2017 0 04/01/2017 Inactive ropinirole 4 mg tablet RxNorm: 195670 1 Tablet(s) PO QHS 03/29/2017 0 03/28/2017 Inactive Requip 4 mg tablet RxNorm: 440674 1 Tablet(s) PO QHS 03/28/201704/01 Inactive gabapentin 600 mg tablet RxNorm: 415008 1 Tablet(s) PO QHS repl aces 300mg dose 03/28/2017 04/15/2017 Inactive Requip 4 mg tablet RxNorm: 574354 1 Tablet(s) PO QHS 03/23/201703/27 Inactive gabapentin 600 mg tablet RxNorm: 328495 1 Tablet(s) PO QHS 03/13/20 17 03/12/2017 Inactive gabapentin 600 mg tablet RxNorm: 990283 1 Tablet(s) PO QHS 03/13/20 17 03/27/2017 Inactive gabapentin 300 mg capsule RxNorm: 266694 1 Capsule(s) PO QPM 201603/12/2017 Inactive Generic For:NEURONTIN 300 MG CAPSULE 01/22/2017 10:10:39 AM losartan 100 mg tablet RxNorm: 985784 1 Tablet(s) PO QD replace s lisinopril 02/21/2017 06/17/2018 Inactive gabapentin 300 mg capsule RxNorm: 933052 TAKE 1 CAPSULE BY MOUT H EVERY EVENING 01/22/2017 02/21/2017 Inactive Generic For:NEURONTI N 300 MG CAPSULE 01/22/2017 10:10:39 AM gabapentin 300 mg capsule RxNorm: 425631 1 Capsule(s) PO QPM 201601/21/2017 Inactive Requip 4 mg tablet RxNorm: 806762 1 Tablet(s) PO QHS 12/21/201603/20 Inactive Effient 10 mg tablet RxNorm: 538837 1 Tablet(s) PO QD 12/12/201612/23 Inactive gabapentin 300 mg capsule RxNorm: 212969 1 Capsule(s) PO QPM 201612/03/2016 Inactive gabapentin 300 mg capsule RxNorm: 652004 1 Capsule(s) PO QPM 201612/13/2016 Inactive Requip 4 mg tablet RxNorm: 687903 1 Tablet(s) PO QHS 11/28/201612/21 Inactive atorvastatin 40 mg tablet RxNorm: 104022 Tablet(s) 1 Tablet(s) PO Q D 11/22/2016 08/18/2017 Inactive atorvastatin 40 mg tablet RxNorm: 204324 1 Tablet(s) PO QD 11/23/1911/21/2016 Inactive ropinirole 1 mg tablet RxNorm: 783206 2.5 Tablet(s) PO QPM for legs/sleep 11/14/2016 11/27/2016 Inactive nystatin 100,000 unit/mL oral suspension RxNorm: 536845 5 Unit(s) PO QID swish and spit 10/31/2016 02/03/2018 Inactive fluconazole 100 mg tablet RxNorm: 313517 1 Tablet(s) PO QD 10/31/19 17 11/09/2016 Inactive doxycycline hyclate 100 mg capsule RxNorm: 6768940 1 Capsule(s) PO BID 10/03/2016 10/12/2016 Inactive Levemir FlexTouch 100 unit/mL (3 mL) subcutaneous insulin pe n RxNorm: 209343 10 Unit(s) SQ QD with pen needles 09/18/2016 04/04/2017 Inactive amitriptyline 25 mg tablet RxNorm: 791273 1 Tablet(s) P O QHS as needed for sleep 09/04/2016 10/17/2016 Inactive ropinirole 1 mg tablet RxNorm: 291568 1.5 Tablet(s) PO QPM for legs/sleep 09/04/2016 11/13/2016 Inactive amitriptyline 25 mg tablet RxNorm: 164185 1 Tablet(s) P O QHS as needed for sleep 08/22/2016 09/03/2016 Inactive clopidogrel 75 mg tablet RxNorm: 221969 1 Tablet(s) PO QD 08/10/2016 10/17/2016 Inactive Zoloft 100 mg tablet RxNorm: 564983 2 Tablet(s) PO QHS 08/10/2016 Inactive atorvastatin 40 mg tablet RxNorm: 284683 1 Tablet(s) PO QD 08/10/20 16 10/17/2016 Inactive ropinirole 1 mg tablet RxNorm: 265343 1 Tablet(s) PO QPM for le gs/sleep 08/10/2016 09/03/2016 Inactive losartan 100 mg tablet RxNorm: 373028 1 Tablet(s) PO QD replace s lisinopril 07/20/2016 02/21/2017 Inactive Zofran 4 mg tablet RxNorm: 967107 1 Tablet(s) PO Q4H as needed for nausea 07/06/2016 10/17/2016 Inactive Flagyl 500 mg tablet RxNorm: 391335 1 Tablet(s) PO TID 07/06/2016 Inactive Plavix 75 mg tablet RxNorm: 516391 1 Tablet(s) PO QD 06/08/201607/05 Inactive isosorbide mononitrate ER 30 mg tablet,extended release 24 h r RxNorm: 909060 1 Tablet(s) PO QAM 06/08/2016 08/09/2016 Inactive atorvastatin 40 mg tablet RxNorm: 230306 1 Tablet(s) PO QD 06/08/20 16 08/09/2016 Inactive hydrochlorothiazide 12.5 mg tablet RxNorm: 218755 1 Tablet(s) PO QA M 06/08/2016 07/05/2016 Inactive metformin ER 1,000 mg tablet,extended release 24hr RxNorm: 8 03974 1 Tablet(s) PO BID 06/08/2016 09/05/2016 Inactive metoprolol tartrate 25 mg tablet RxNorm: 341171 1/2 Tablet(s) PO BI D 06/08/2016 08/09/2016 Inactive Zoloft 100 mg tablet RxNorm: 533559 2 Tablet(s) PO QHS 04/03/2016 Inactive metformin ER 1,000 mg tablet,extended release 24hr RxNorm: 8 07175 Tablet(s) 1 Tablet(s) PO QD 03/30/2016 12/18/2018 Inactive Levemir FlexTouch 100 unit/mL (3 mL) subcutaneous insulin pe n RxNorm: 571421 10 Unit(s) SQ QD 03/09/2016 03/08/2016 Inactive Levemir FlexTouch 100 unit/mL (3 mL) subcutaneous insulin pe n RxNorm: 470612 10 Unit(s) SQ QD with pen needles 03/09/2016 03/20/2016 Inactive Mobic 15 mg tablet RxNorm: 642919 1 Tablet(s) PO QD for foot pain 0 02/17/2016 03/17/2016 Inactive Zoloft 100 mg tablet RxNorm: 485576 1 1/2 Tablet(s) PO QHS 01/31/20 16 04/02/2016 Inactive omeprazole 20 mg capsule,delayed release RxNorm: 492659 TAKE 2 CAPSULES BY MOUTH EVERY DAY 01/12/2016 08/09/2016 Inactive Generic For:*CHERYL LOSEC [address] 01/12/2016 8:58:34 AM Zoloft 100 mg tablet RxNorm: 997442 1/2 Tablet(s) PO QH S for 1 week then 1 tablet po q HS 12/30/2015 01/27/2016 Inactive Ventolin HFA 90 mcg/actuation aerosol inhaler RxNorm: 963062 2 Puff(s) INH QID as needed for shortness of breath 12/30/2015 02/03/2018 Inactive [AttnRPh: Saving apply/adjudicate RxGRP:SG20 RxBIN:[id number] RxPCN: ID#:[id number]] metformin ER 1,000 mg tablet,extended release 24hr RxNorm: 8 12341 1 Tablet(s) PO QD 12/20/2015 03/18/2016 Inactive clindamycin 300 mg capsule RxNorm: 441844 1 Capsule(s) PO TID 12/0512/15/2015 Inactive mupirocin 2 % topical cream RxNorm: 066628 TOP to facial lesion s twice daily 11/15/2015 12/15/2015 Inactive cefdinir 300 mg capsule RxNorm: 405705 1 Capsule(s) PO BID 11/15/19 16 11/24/2015 Inactive Medrol (Gui) 4 mg tablets in a dose pack RxNorm: 578653 Tablet(s) PO as directed 10/11/2015 12/15/2015 Inactive albuterol sulfate 2.5 mg/3 mL (0.083 %) solution for n ebulization RxNorm: 588147 INH USE 1 VIAL IN NEBULIZER EVERY FOUR H OURS NEEDED FOR WHEEZING OR SHORTNESS OF BREATH 10/05/2015 10/04/2015 Inactive Generic For:*PRO VENTIL 0.83 MG/ML SOLUTN 06/13/2013 2:04:46 PM doxycycline hyclate 100 mg capsule RxNorm: 5040777 1 Capsule(s) PO BID 10/05/2015 10/14/2015 Inactive albuterol sulfate 2.5 mg/3 mL (0.083 %) solution for n ebulization RxNorm: 784321 Milliliter(s) INH USE 1 VIAL IN NEBULIZE R EVERY FOUR HOURS NEEDED FOR WHEEZING OR SHORTNESS OF BREATH Dx: J44.9 10/05/2015 12/05/2017 Inacti ve Generic For:*PROVENTIL 0.83 MG/ML SOLUTN 06/13/2013 2:04:46 PM albuterol sulfate 2.5 mg/3 mL (0.083 %) solution for n ebulization RxNorm: 181797 3 Milliliter(s) INH USE 1 VIAL IN NEBULI ZER EVERY FOUR HOURS NEEDED FOR WHEEZING OR SHORTNESS OF BREATH 09/06/2015 10/04/2015 Inactive Generic For:*PROVENTIL 0.83 MG/ML SOLUTN 06/13/2013 2:04:46 PM Tradjenta 5 mg tablet RxNorm: 0961900 2 Tablet(s) PO QD 07/22/2015 Inactive albuterol sulfate 2.5 mg/3 mL (0.083 %) solution for n ebulization RxNorm: 994301 3 Milliliter(s) INH USE 1 VIAL IN NEBULI ZER EVERY FOUR HOURS NEEDED FOR WHEEZING OR SHORTNESS OF BREATH 06/29/2015 09/05/2015 Inactive Generic For:*PROVENTIL 0.83 MG/ML SOLUTN 06/13/2013 2:04:46 PM albuterol sulfate 2.5 mg/3 mL (0.083 %) solution for n ebulization RxNorm: 612873 Milliliter(s) INH USE 1 VIAL IN NEBULIZE R EVERY FOUR HOURS NEEDED FOR WHEEZING OR SHORTNESS OF BREATH 06/29/2015 12/04/2017 Inactive Generic For:*PROVENTIL 0.83 MG/ML SOLUTN 06/13/2013 2:04:46 PM doxycycline hyclate 100 mg tablet RxNorm: 011468 1 Tablet(s) PO BID 06/28/2015 07/07/2015 Inactive losartan 100 mg tablet RxNorm: 799158 1 Tablet(s) PO QD -replac es lisinopril 06/14/2015 09/05/2015 Inactive metformin ER 1,000 mg tablet,extended release 24hr RxNorm: 8 86263 1 Tablet(s) PO QD 06/14/2015 09/11/2015 Inactive losartan 100 mg tablet RxNorm: 267210 1 Tablet(s) PO QD -replac es lisinopril 06/14/2015 12/10/2015 Inactive Zocor 20 mg tablet RxNorm: 741496 Tablet(s) Tablet(s) 1 Tablet(s) PO QD -needs lipids labs 06/14/2015 06/14/2015 Inactive atorvastatin 40 mg tablet RxNorm: 222739 1 Tablet(s) PO QD repl aces simvastatin 06/14/2015 12/10/2015 Inactive loratadine 10 mg tablet RxNorm: 171813 Tablet(s) 1 Tablet(s) PO QD for drainage 06/14/2015 06/07/2016 Inactive Celexa 40 mg tablet RxNorm: 474347 1 Tablet(s) PO QD TA KE ONE (1) TABLET BY MOUTH DAILY 06/14/2015 12/29/2015 Inactive Generic For:HARJINDER XA 40 MG TABLET clindamycin 300 mg capsule RxNorm: 760179 2 Capsule(s) PO BID 06/0306/12/2015 Inactive metformin ER 1,000 mg tablet,extended release 24hr RxNorm: 8 71493 1 Tablet(s) PO QD 06/03/2015 06/02/2015 Inactive metformin ER 1,000 mg tablet,extended release 24hr RxNorm: 8 19262 1 Tablet(s) PO QD 06/03/2015 06/13/2015 Inactive mupirocin 2 % topical ointment RxNorm: 858796 TOP apply to open lesion of knee twice daily 06/03/2015 01/30/2016 Inactive Zocor 20 mg tablet RxNorm: 850578 Tablet(s) 1 Tablet(s ) PO QD -needs lipids labs 05/13/2015 06/13/2015 Inactive Celexa 40 mg tablet RxNorm: 006270 1 Tablet(s) PO QD TA KE ONE (1) TABLET BY MOUTH DAILY 05/13/2015 06/13/2015 Inactive Generic For:HARJINDER XA 40 MG TABLET Zocor 20 mg tablet RxNorm: 482847 Tablet(s) 1 Tablet(s ) PO QD -needs lipids labs 02/23/2015 03/24/2015 Inactive loratadine 10 mg tablet RxNorm: 065840 1 Tablet(s) PO QD for dr saenz 12/24/2014 06/13/2015 Inactive Zocor 20 mg tablet RxNorm: 581549 1 Tablet(s) PO QD -needs lipi ds labs 11/17/2014 02/23/2015 Inactive Celexa 40 mg tablet RxNorm: 147629 1 Tablet(s) PO QD 1 Tablet(s) PO QD 1 Tablet(s) PO QD Generic OKAY 11/11/2014 05/13/2015 Inactive Zocor 20 mg tablet RxNorm: 141605 1 Tablet(s) PO QD -needs lipi ds labs 11/11/2014 11/16/2014 Inactive omeprazole 20 mg capsule,delayed release RxNorm: 888194 2 Capsule(s) PO QD TAKE 2 CAPSULES BY MOUTH DAILY 10/27/2014 04/24/2015 Inactive Shena harp For:*PRILOSEC 20 MG CAPSULE trazodone 50 mg tablet RxNorm: 066043 1 1/2 Tablet(s) PO QHS 201412/29/2015 Inactive losartan 100 mg tablet RxNorm: 030294 1 Tablet(s) PO QD -replac es lisinopril 10/26/2014 04/23/2015 Inactive Levaquin 500 mg tablet RxNorm: 580429 1 Tablet(s) PO QD 10/08/2014 Inactive Levaquin 500 mg tablet RxNorm: 819143 1 Tablet(s) PO QD 10/08/2014 Inactive Diflucan 100 mg tablet RxNorm: 818166 1 Tablet(s) PO QD 10/06/2014 Inactive DuoNeb 0.5 mg-3 mg(2.5 mg base)/3 mL solution for nebulizati on RxNorm: 4250393 3 Milliliter(s) INH QID 09/23/2014 08/09/2016 Inactive Ventolin HFA 90 mcg/actuation aerosol inhaler RxNorm: 461031 2 Puff(s) INH QID as needed for shortness of breath 09/21/2014 12/29/2015 Inactive [AttnRPh: Saving apply/adjudicate RxGRP:SG20 RxBIN:[id number] RxPCN: ID#:[id number]] promethazine-codeine 6.25 mg-10 mg/5 mL syrup RxNorm: 797496 1 Teaspoon(s) PO QHS as needed for cough 09/08/2014 09/20/2014 Inactive prednisone 20 mg tablet RxNorm: 028449 1 Tablet(s) PO BID 09/02/2014 09/08/2014 Inactive promethazine-codeine 6.25 mg-10 mg/5 mL syrup RxNorm: 135348 1 Teaspoon(s) PO Q4H 09/02/2014 09/20/2014 Inactive doxycycline monohydrate 100 mg capsule RxNorm: 710923 1 Capsule (s) PO BID 09/02/2014 09/07/2014 Inactive Tessalon Perles 100 mg capsule RxNorm: 827080 1 Capsule (s) PO TID as needed for cough 08/31/2014 09/20/2014 Inactive Actos 15 mg tablet RxNorm: 188899 1 Tablet(s) PO QAM 1 Tablet(s ) PO QAM 08/26/2014 09/20/2014 Inactive loratadine 10 mg tablet RxNorm: 904764 1 Tablet(s) PO QD for dr saenz 08/26/2014 10/26/2014 Inactive Zithromax 500 mg tablet RxNorm: 725104 1 Tablet(s) PO QD 08/25/2014 1 11/01/2013 Inactive Zithromax 500 mg tablet RxNorm: 323968 1 Tablet(s) PO QD 08/25/2014 1 10/25/2013 Inactive Trazadone 75mg Tablet RxNorm: 1 Tablet(s) PO QHS 08/10/20142018 Inactive Zocor 20 mg tablet RxNorm: 542990 1 Tablet(s) PO QD 08/10/20142014 Inactive Trazadone 75mg Tablet RxNorm: 1 Tablet(s) PO QHS as need ed for sleep 08/10/2014 10/08/2014 Inactive Celexa 40 mg tablet RxNorm: 558458 1 Tablet(s) PO QD 1 Tablet(s) PO QD 1 Tablet(s) PO QD Generic OKAY 06/09/2014 10/06/2014 Inactive Actos 15 mg tablet RxNorm: 206499 1 Tablet(s) PO QAM 05/12/201408/26 Inactive lisinopril 20 mg tablet RxNorm: 699963 1 Tablet(s) PO QD 05/12/2014 0 10/26/2014 Inactive TAKE ONE TABLET BY MOUTH EVERY DAY;Gener ic For:*PRINIVIL 20 MG TABLET [AttnRPh: Saving apply/adjudicate RxGRP:SG20 RxBIN:[id number] RxPCN: ID#:[id number]] hydrocodone 5 mg-acetaminophen 325 mg tablet RxNorm: 230069 1 Tablet(s) PO TID as needed for pain for severe pain 04/30/2014 08/09/2014 Inactive hydrocodone 5 mg-acetaminophen 325 mg tablet RxNorm: 006505 1 Tablet(s) PO TID as needed for pain for severe pain 04/17/2014 04/29/2014 Inactive doxycycline hyclate 100 mg capsule RxNorm: 284316 1 Capsule(s) PO BID 03/05/2014 03/04/2014 Inactive doxycycline hyclate 100 mg capsule RxNorm: 581530 1 Capsule(s) PO BID 03/05/2014 03/14/2014 Inactive albuterol sulfate 2.5 mg/3 mL (0.083 %) solution for n ebulization RxNorm: 385615 Milliliter(s) INH USE 1 VIAL IN NEBULIZE R EVERY FOUR HOURS NEEDED FOR WHEEZING OR SHORTNESS OF BREATH 03/02/2014 06/29/2015 Inactive Generic For:*PROVENTIL 0.83 MG/ML SOLUTN 06/13/2013 2:04:46 PM Celexa 40 mg tablet RxNorm: 205121 1 Tablet(s) PO QD 1 Tablet(s) PO QD replaces lexapro. Generic OKAY 01/13/2014 06/09/2014 Inactive Actos 15 mg tablet RxNorm: 792328 1 Tablet(s) PO QAM 01/07/201405/12 Inactive lisinopril 20 mg tablet RxNorm: 407908 1 Tablet(s) PO QD 12/08/2013 0 05/12/2014 Inactive TAKE ONE TABLET BY MOUTH EVERY DAY;Gener ic For:*PRINIVIL 20 MG TABLET cefdinir 300 mg capsule RxNorm: 804191 2 Capsule(s) PO QD 11/10/2013 08/09/2014 Inactive cefdinir 300 mg capsule RxNorm: 794857 2 Capsule(s) PO QD 10/09/2013 10/15/2013 Inactive Actos 15 mg tablet RxNorm: 639950 1 Tablet(s) PO QAM 10/09/201301/06 Inactive doxycycline hyclate 100 mg capsule RxNorm: 3990245 1 Capsule(s) PO Q12H 09/18/2013 09/27/2013 Inactive omeprazole 20 mg capsule,delayed release RxNorm: 632215 2 Capsule(s) PO QD TAKE 2 CAPSULES BY MOUTH DAILY 09/03/2013 03/01/2014 Inactive Generi c For:*PRILOSEC [address] Celexa 40 mg tablet RxNorm: 860873 1 Tablet(s) PO QD re places lexapro. Generic OKAY 09/03/2013 01/13/2014 Inactive Symbicort 160 mcg-4.5 mcg/actuation HFA aerosol inhaler RxNo rm: 6336375 2 Puff(s) INH BID 08/13/2013 03/23/2014 Inactive metformin 1,000 mg tablet RxNorm: 796209 1 Tablet(s) PO BID 013 08/12/2013 Inactive TAKE ONE TABLET BY MOUTH TWI CE DAILY;Generic For:GLUCOPHAGE 1,000 MG TABLET 08/27/12 Thank you Actos 15 mg tablet RxNorm: 428260 1 Tablet(s) PO QAM 06/23/201310/09 Inactive lisinopril 20 mg tablet RxNorm: 684001 1 Tablet(s) PO QD 06/23/2013 0 12/08/2013 Inactive TAKE ONE TABLET BY MOUTH EVERY DAY;Gener ic For:*PRINIVIL 20 MG TABLET albuterol sulfate 2.5 mg/3 mL (0.083 %) solution for n ebulization RxNorm: 741775 Solution for Nebulization INH USE 1 VIAL IN NEBULIZER EVERY FOUR HOURS NEEDED FOR WHEEZING OR SHORTNESS OF BREATH 06/16/2013 03/01/2014 Inactive Generic For:*PROVENTIL 0.83 MG/ML SOLUTN 06/13/2013 2:04:46 PM prednisone 10 mg tablet RxNorm: 416081 1 Tablet(s) PO BID 04/09/2013 04/13/2013 Inactive AndroGel 1.25 gram/actuation (1%) Transdermal Gel Pump RxNorm: 2 74925 TD 04/09/2013 08/09/2014 Inactive APPLY 4 PUMPS OF GEL AT BEDTIME DIRECTED; (Appended: Controlled substance eRx refill - RxReferenceNumber: [id number]) azithromycin 250 mg tablet RxNorm: 450426 2 Tablet(s) PO QD 013 04/16/2013 Inactive Amaryl 2 mg tablet RxNorm: 342569 1 Tablet(s) PO BID N eeds appt in 1 month (around March 21) 02/18/2013 08/12/2013 Inactive Amaryl 2 mg tablet RxNorm: 308908 1 Tablet(s) PO BID 02/18/201302/17 Inactive metformin 1,000 mg tablet RxNorm: 519888 1 Tablet(s) PO BID 013 07/27/2013 Inactive TAKE ONE TABLET BY MOUTH TWI CE DAILY;Generic For:GLUCOPHAGE 1,000 MG TABLET 08/27/12 Thank you Actos 15 mg tablet RxNorm: 502072 1 Tablet(s) PO QAM 02/04/201306/03 Inactive albuterol sulfate 2.5 mg/3 mL (0.083 %) Neb Solution RxNorm: 001428 1 Unit Dose INH Q4H prn wheezing or shortness of breath 01/30/2013 06/15/2013 Inac tive Medrol (Gui) 4 mg tablets in a dose pack RxNorm: 376423 Tablet(s) PO as directed 01/20/2013 07/15/2013 Inactive cefdinir 300 mg capsule RxNorm: 417680 1 Capsule(s) PO BID anti biotic 01/20/2013 01/29/2013 Inactive lisinopril 20 mg tablet RxNorm: 723225 Tablet(s) PO 01/13/20132012 Inactive TAKE ONE TABLET BY MOUTH EVERY DAY;Gener ic For:*PRINIVIL 20 MG TABLET citalopram 40 mg tablet RxNorm: 702370 Tablet(s) PO 01/13/20132013 Inactive TAKE ONE (1) TABLET BY MOUTH DAILY;Gener ic For:CELEXA 40 MG TABLET omeprazole 20 mg capsule,delayed release RxNorm: 260891 Capsule(s) PO TAKE 2 CAPSULES BY MOUTH DAILY 11/15/2012 09/03/2013 Inactive Generic For:*PRILOSEC [address] amoxicillin 875 mg tablet RxNorm: 996937 1 Tablet(s) PO BID 013 10/28/2012 Inactive Actos 30 mg tablet RxNorm: 879689 1 Tablet(s) PO QD 09/23/20122011 Inactive Actos 15 mg tablet RxNorm: 508963 1 Tablet(s) PO QAM 09/23/201209/22 Inactive Actos 15 mg tablet RxNorm: 336993 1 Tablet(s) PO QAM 09/23/201202/04 Inactive prednisone 20 mg tablet RxNorm: 703023 1 Tablet(s) PO BID 08/28/2012 09/03/2012 Inactive doxycycline hyclate 100 mg tablet RxNorm: 7180695 1 Tablet(s) PO BI D 08/28/2012 09/06/2012 Inactive metformin 1,000 mg tablet RxNorm: 381178 Tablet(s) PO 08/27/201201/22 Inactive TAKE ONE TABLET BY MOUTH TWICE DAILY;Gen joshua For:GLUCOPHAGE 1,000 MG TABLET 08/27/12 Thank you citalopram 40 mg tablet RxNorm: 680675 Tablet(s) PO 07/30/20122012 Inactive TAKE ONE (1) TABLET BY MOUTH DAILY;Gener ic For:CELEXA 40 MG TABLET lisinopril 20 mg tablet RxNorm: 064758 Tablet(s) PO 07/30/20122012 Inactive TAKE ONE TABLET BY MOUTH EVERY DAY;Gener ic For:*PRINIVIL 20 MG TABLET AndroGel 1.25 gram/actuation (1%) Transdermal Gel Pump RxNor m: [id number] Gel in Metered-Dose Pump TD 07/09/2012 04/08/2013 Inactive APPLY 4 PUM PS OF GEL AT BEDTIME DIRECTED;WC (Appended: Controlled substance eRx refill - RxReferenceNumber: [id number]) citalopram 40 mg tablet RxNorm: 334136 Tablet(s) PO 07/01/20122011 Inactive TAKE ONE (1) TABLET BY MOUTH DAILY;Gener ic For:CELEXA 40 MG TABLET metformin 1,000 mg tablet RxNorm: 532662 1 Tablet(s) PO BID 012 08/25/2012 Inactive TAKE 1 TABLET BY MOUTH TWICE DAILY;Generic For:GLUCOPHAGE 1,000 MG TABLET meclizine 25 mg Tab RxNorm: 375930 1 Tablet(s) PO QID prn dizziness 05/09/2012 05/18/2012 Inactive lisinopril 20 mg tablet RxNorm: 539507 Tablet(s) PO QD 04/22/2012 Inactive TAKE ONE (1) TABLET BY MOUTH DAILY;Gener ic For:*PRINIVIL 20 MG TABLET metformin 1,000 mg tablet RxNorm: 622995 Tablet(s) PO 03/19/201212/2011 Inactive TAKE 1 TABLET BY MOUTH TWICE DAILY;Gener ic For:GLUCOPHAGE 1,000 MG TABLET cefdinir 300 mg Cap RxNorm: 844756 1 Capsule(s) PO BID 11/28/2011 Inactive cefdinir 300 mg Cap RxNorm: 591391 1 Capsule(s) PO BID 11/01/2011 Inactive citalopram 40 mg tablet RxNorm: 408838 Tablet(s) PO 10/30/20112011 Inactive TAKE ONE (1) TABLET BY MOUTH DAILY;Gener ic For:CELEXA 40 MG TABLET cefdinir 300 mg Cap RxNorm: 176678 1 Capsule(s) PO BID 10/02/2011 Inactive metformin 1,000 mg Tab RxNorm: 860134 1 Tablet(s) PO BID 09/28/2011 0 01/25/2012 Inactive citalopram 40 mg Tab RxNorm: 507793 1 Tablet(s) PO QD 09/28/201111/2011 Inactive omeprazole 20 mg capsule,delayed release RxNorm: 422009 2 Capsu le(s) PO QD 09/28/2011 03/25/2012 Inactive lisinopril 20 mg Tab RxNorm: 061267 Tablet(s) PO 08/21/2011 04/21/2012 Inactive TAKE ONE (1) TABLET BY MOUTH DAILY;Generic For:*PRINIVIL 20 MG TABLET AndroGel 1.25 gram/actuation (1%) Transdermal Gel Pump RxNor m: [id number] Gel in Metered-dose Pump TD 08/21/2011 07/09/2012 Inactive APPLY 4 PUM PS OF GEL AT BEDTIME DIRECTED (Appended: Controlled substance eRx refill - RxReferenceNumber: [id number]) Lantus Solostar 100 unit/mL (3 mL) Sub-Q Insulin Pen RxNorm: 875968 30 Unit(s) SQ QD 06/20/2011 05/08/2012 Inactive Lantus Solostar 100 unit/mL (3 mL) Sub-Q Insulin Pen RxNorm: 269633 30 Unit(s) SQ QD 06/19/2011 06/19/2011 Inactive metformin 1,000 mg Tab RxNorm: 622602 1 Tablet(s) PO BID 05/12/2011 1 11/09/2010 Inactive citalopram 40 mg Tab RxNorm: 991099 1 Tablet(s) PO QD 03/06/201105/2011 Inactive metformin 1,000 mg Tab RxNorm: 149863 1 Tablet(s) PO BID 12/27/2010 0 04/25/2011 Inactive lisinopril 20 mg Tab RxNorm: 004964 Tablet(s) PO TAKE 1 TABLET BY MOUTH EVERY DAY;Generic For:*PRINIVIL 20 MG TABLET 12/26/2010 08/20/2011 Inactive Ceftin 500 mg Tab RxNorm: 140553 1 Tablet(s) PO BID 12/19/20102010 Inactive omeprazole 20 mg Cap, Delayed Release RxNorm: 705611 2 Capsule( s) PO QD 09/13/2010 03/11/2011 Inactive Byetta 10 mcg/0.04 mL per dose Sub-Q Pen Injector RxNorm: 84 7913 1 Unit Dose SQ BID 09/07/2010 10/06/2010 Inactive Celexa 40 mg tablet RxNorm: 857520 1 Tablet(s) PO QD re places lexapro. Generic OKAY 08/09/2010 02/04/2011 Inactive Actos 30 mg Tab RxNorm: 264678 1 Tablet(s) PO QD 08/09/2010 04/02/2011 Inactive lisinopril 20 mg Tab RxNorm: 700165 1 Tablet(s) PO QD 08/09/201011/22 Inactive metformin 1,000 mg Tab RxNorm: 334048 1 Tablet(s) PO BID 08/09/2010 0 12/06/2010 Inactive Metformin 1,000 mg Tab RxNorm: 672625 1 Tablet(s) PO BID 04/26/2010 0 04/25/2010 Inactive metformin 1,000 mg Tab RxNorm: 165494 1 Tablet(s) PO BID 04/26/2010 1 Inactive Lomotil 2.5 mg-0.025 mg Tab RxNorm: 8421255 1 Tablet(s) PO TID 1-2 TABS THREE TIMES DAILY 04/05/2010 04/07/2010 Inactive Mupirocin 2 % Topical Cream RxNorm: 805578 TOP BID 04/05/201003/25 Inactive lisinopril 20 mg Tab RxNorm: 617386 1 Tablet(s) PO QD 03/29/201010/2009 Inactive Actos 30 mg Tab RxNorm: 050042 1 Tablet(s) PO QD 03/29/2010 07/26/2010 Inactive Lisinopril 20 mg Tab RxNorm: 469072 1 Tablet(s) PO QD 02/27/201001/2010 Inactive Actos 30 mg Tab RxNorm: 180453 1 Tablet(s) PO QD 02/14/2010 03/28/2010 Inactive Celexa 40 mg Tab RxNorm: 333957 1 Tablet(s) PO QD replaces lexapro 01/13/2010 07/11/2010 Inactive Cyclobenzaprine 10 mg Tab RxNorm: 469145 1 Tablet(s) PO TID prn spasm 12/23/2009 01/21/2010 Inactive Cyclobenzaprine 10 mg Tab RxNorm: 698834 1 Tablet(s) PO TID 010 12/22/2009 Inactive Hydrocodone-Acetaminophen 7.5 mg-750 mg Tab RxNorm: 521699 1 Ta blet(s) PO Q4-6H 12/23/2009 12/22/2009 Inactive aspirin 81 mg tablet RxNorm: 870258 1 Tablet(s) PO QD No Start Date Active isosorbide mononitrate ER 60 mg tablet,extended release 24 h r RxNorm: 229182 1 Tablet(s) PO QD No Start Date Active amlodipine 5 mg tablet RxNorm: 835418 1 Tablet(s) PO QD No Start Date Active Vitamin D3 1,000 unit tablet RxNorm: 547211 3 Tablet(s) PO QD No St art Date 10/26/2014 Inactive Lexapro 20 mg Tab RxNorm: 099523 1 Tablet(s) PO QD No Start Date 12/24 Inactive loperamide 2 mg tablet RxNorm: 596615 Tablet(s) PO PRN No Start Date 06/07/2016 Inactive Levemir FlexTouch U-100 Insulin 100 unit/mL (3 mL) sub cutaneous pen RxNorm: 544441 22 Unit(s) SQ QD No Start Date 12/21/2019 Inactive Janumet 50 mg-1,000 mg Tab RxNorm: 143977 1 Tablet(s) PO BID No Sta rt Date 01/12/2010 Inactive Levemir U-100 Insulin 100 unit/mL subcutaneous solution RxNo rm: 300183 10 Unit(s) SQ QHS No Start Date 12/08/2018 Inactive Medrol (Gui) 4 mg tablets in a dose pack RxNorm: 548200 Tablet(s) PO Use as directed No Start Date 12/22/2018 Inactive aspirin 325 mg tablet RxNorm: 241654 1 Tablet(s) PO QD No Start Date 08/09/2016 Inactive Efudex 5 % Topical Cream RxNorm: 950339 Application TOP QD prn fto skin lesion No Start Date 08/12/2013 Inactive nitroglycerin 0.4 mg sublingual tablet RxNorm: 998081 Tablet(s) SL as needed No Start Date 12/18/2018 Inactive levofloxacin 500 mg tablet RxNorm: 477886 1 Tablet(s) PO QD No Star t Date 08/06/2018 Inactive ferrous sulfate 325 mg (65 mg iron) tablet RxNorm: 744212 1 Tab let(s) PO QHS No Start Date 04/16/2017 Inactive fluorouracil 5 % topical cream RxNorm: 622664 1 TOP No Start James e 08/06/2018 Inactive Vitamin D3 1,000 unit capsule RxNorm: 029400 1 Capsule(s) PO QD No Start Date 02/03/2018 Inactive Hydrocodone-Acetaminophen 7.5 mg-750 mg Tab RxNorm: 537744 1 Ta blet(s) PO PRN No Start Date 08/09/2014 Inactive pantoprazole 40 mg tablet,delayed release RxNorm: 738299 1 Tabl et(s) PO QD No Start Date 01/22/2018 Inactive omeprazole 20 mg Cap, Delayed Release RxNorm: 271719 2 Capsule( s) PO QD No Start Date 09/12/2010 Inactive DuoNeb 0.5 mg-3 mg(2.5 mg base)/3 mL solution for nebulizati on RxNorm: 1444312 INH Q4H as needed No Start Date 10/22/2018 Inactive Lyrica 75 mg capsule RxNorm: 655346 2 Capsule(s) PO QHS No Start Da te 03/09/2019 Inactive isosorbide mononitrate ER 30 mg tablet,extended release 24 h r RxNorm: 310355 1 Tablet(s) PO QD No Start Date 12/08/2018 Inactive Tradjenta 5 mg tablet RxNorm: 1991158 1 Tablet(s) PO QD No Start Da te 08/09/2016 Inactive Tudorza Pressair 400 mcg/actuation breath activated RxNorm: 2663792 1 Puff(s) INH BID No Start Date 06/17/2017 Inactive Lantus Solostar 100 unit/mL (3 mL) Sub-Q Insulin Pen RxNorm: 380652 30 Unit(s) SQ QD No Start Date 06/18/2011 Inactive Requip 4 mg tablet RxNorm: 700179 1 Tablet(s) PO BID No Start Date Inactive Symbicort 160 mcg-4.5 mcg/actuation HFA aerosol inhaler RxNo rm: 7207665 2 Puff(s) INH BID No Start Date 07/11/2018 Inactive atorvastatin 40 mg tablet RxNorm: 475124 1 Tablet(s) PO QD No Start Date 12/18/2018 Inactive tramadol 50 mg tablet RxNorm: 971441 1 Tablet(s) PO TID as needed for pain (take alone with two extra strength tylenol) No Start Date 01/16/2019 Inactive Symbicort 160 mcg-4.5 mcg/actuation HFA aerosol inhaler RxNo rm: 2265454 2 Puff(s) INH BID No Start Date 08/12/2013 Inactive Vitamin D3 5,000 unit tablet RxNorm: 998380 1 Tablet(s) PO QD No St art Date 05/08/2019 Inactive albuterol sulfate 2.5 mg/3 mL (0.083 %) Neb Solution RxNorm: 388792 1 Unit Dose INH Q4H prn wheezing or shortness of breath No Start Date 01/29/2013 Inac tive Ranexa 500 mg tablet,extended release RxNorm: 477803 1 Tablet(s ) PO BID No Start Date 02/03/2018 Inactive Advair Diskus 500 mcg-50 mcg/dose powder for inhalation RxNo rm: 5980291 1 Puff(s) INH BID No Start Date 08/09/2016 Inactive clopidogrel 75 mg tablet RxNorm: 688187 1 Tablet(s) PO QD No Start Date 05/01/2018 Inactive metformin 1,000 mg Tab RxNorm: 722405 1 Tablet(s) PO BID No Start D ate 08/12/2013 Inactive Silenor 3 mg tablet RxNorm: 704236 1 Tablet(s) PO QHS No Start Date 0 04/04/2017 Inactive Medrol (Gui) 4 mg tablets in a dose pack RxNorm: 451317 Tablet(s) PO as directed No Start Date 01/19/2013 Inactive Requip 4 mg tablet RxNorm: 340240 1 Tablet(s) PO BID No Start Date Inactive clopidogrel 75 mg tablet RxNorm: 021174 1 Tablet(s) PO QD No Start Date 02/03/2018 Inactive Tradjenta 5 mg tablet RxNorm: 1855468 1 Tablet(s) PO QD No Start Da te 02/03/2018 Inactive ProAir HFA 90 mcg/Actuation Aerosol Inhaler RxNorm: 643609 2 Pu ff(s) INH PRN No Start Date 07/09/2012 Inactive Tessalon Perles 100 mg capsule RxNorm: 313056 1 Capsule (s) PO TID as needed for cough No Start Date 08/30/2014 Inactive ferrous sulfate 325 mg (65 mg iron) tablet RxNorm: 333379 1 Tab let(s) PO QD No Start Date 05/08/2019 Inactive pioglitazone 15 mg tablet RxNorm: 814323 1 Tablet(s) PO QD No Start Date 09/20/2014 Inactive Lexapro Oral RxNorm: Oral No Start Date 12/13/2009 Inactive Breo Ellipta 100 mcg-25 mcg/dose powder for inhalation RxNor m: 7589449 1 Puff(s) INH BID No Start Date 05/31/2015 Inactive Tylenol Extra Strength 500 mg tablet RxNorm: 971919 2 T ablet(s) PO QHS along with ropironole No Start Date 12/18/2018 Inactive tramadol 50 mg tablet RxNorm: 569648 1 Tablet(s) PO QID as need ed for pain No Start Date 12/24/2018 Inactive cyclobenzaprine 10 mg Tab RxNorm: 078593 Oral No Start Date 12/22 Inactive Levemir FlexTouch 100 unit/mL (3 mL) subcutaneous insulin pe n RxNorm: 802584 10 Unit(s) SQ QD No Start Date 03/08/2016 Inactive amlodipine 5 mg tablet RxNorm: 600998 1 Tablet(s) PO QD No Start Da te 08/09/2016 Inactive Novolog 100 unit/mL subcutaneous solution RxNorm: 052793 10 Uni t(s) SQ AC No Start Date 08/12/2017 Inactive Levemir FlexTouch 100 unit/mL (3 mL) subcutaneous insulin pe n RxNorm: 649605 25 Unit(s) SQ QPM No Start Date 08/06/2018 Inactive Farxiga 5 mg tablet RxNorm: 1524144 1 Tablet(s) PO QD No Start Date 0 10/05/2014 Inactive DuoNeb 0.5 mg-3 mg(2.5 mg base)/3 mL solution for nebulizati on RxNorm: 5839005 inhalation No Start Date 09/23/2014 Inactive Doxycycline 100 mg Cap RxNorm: 115778 1 Capsule(s) PO BID No Start Date 12/18/2010 Inactive Vitamin B12 1000mcg Tablet RxNorm: 1 Tablet(s) PO QD No Start Date 02/03/2018 Inactive Hydrocodone-Acetaminophen 7.5 mg-750 mg Tab RxNorm: 614397 1 Ta blet(s) PO Q6-8H No Start Date 12/22/2009 Inactive Xigduo XR 5 mg-1,000 mg tablet,extended release RxNorm: 1593 833 1 Tablet(s) PO QD No Start Date 05/31/2015 Inactive cyanocobalamin (vit B-12) 1,000 mcg/mL injection solution Rx Norm: 572057 1 injection weekly for 4 weeks 1 Milliliter(s) Inj No Start Date 05/08/2019 Inactive AndroGel 1.25 g/Actuation (1%) Transdermal Gel Pump RxNorm: 3086579 TD Apply 4pumps daily No Start Date 08/21/2011 Inactive Actoplus MET 15 mg-850 mg Tab RxNorm: 333534 1 Tablet(s) PO BID No Start Date 12/18/2010 Inactive Amaryl 2 mg tablet RxNorm: 420101 1 Tablet(s) PO BID No Start Date Inactive Levemir FlexTouch 100 unit/mL (3 mL) subcutaneous insulin pe n RxNorm: 405311 20 Unit(s) SQ QD No Start Date 06/12/2016 Inactive Symbicort 160 mcg-4.5 mcg/actuation HFA aerosol inhaler RxNo rm: 5380780 2 Puff(s) INH BID No Start Date 02/03/2018 Inactive Symbicort 160 mcg-4.5 mcg/Actuation Inhalation HFA Aer osol Inhaler RxNorm: 9929611 2 INH BID No Start Date 12/18/2010 Inactive Farxiga 5 mg tablet RxNorm: 5305752 1 Tablet(s) PO QD No Start Date 0 03/01/2015 Inactive magnesium oxide 400 mg (241.3 mg magnesium) tablet RxNorm: 1 11919 1 Tablet(s) PO QHS No Start Date 05/08/2019 Inactive Tradjenta 5 mg tablet RxNorm: 1178245 2 Tablet(s) PO QD No Start Da te 07/21/2015 Inactive Levemir FlexTouch U-100 Insulin 100 unit/mL (3 mL) sub cutaneous pen RxNorm: 354534 40 Unit(s) SQ QD No Start Date 08/06/2018 Inactive Sinemet CR 50 mg-200 mg tablet,extended release RxNorm: 8343 41 1 Tablet(s) PO QHS No Start Date 09/24/2017 Inactive metoprolol tartrate 25 mg tablet RxNorm: 962520 1/2 Tablet(s) P O BID No Start Date 02/03/2018 Inactive Requip 4 mg tablet RxNorm: 469483 1 Tablet(s) PO QHS No Start Date Inactive Ventolin HFA 90 mcg/actuation aerosol inhaler RxNorm: 386313 2 Puff(s) INH Q4H as needed No Start Date 04/22/2018 Inactive B12 5,000 mcg-100 mcg sublingual lozenge RxNorm: 781101 IM as d irected No Start Date 05/08/2019 Inactive ropinirole 1 mg tablet RxNorm: 535600 1 Tablet(s) PO QHS No Start D ate 08/06/2018 Inactive Percocet 5 mg-325 mg tablet RxNorm: 3853982 1 Tablet(s) PO Q4H as needed for pain (Dr Rizzo) No Start Date 10/22/2018 Inactive hydrocodone 5 mg-acetaminophen 325 mg tablet RxNorm: 153230 1 Tablet(s) PO TID as needed for pain for severe pain No Start Date 04/16/2014 Inactive scopolamine 1.5 mg 72 hr Transderm Patch RxNorm: 007961 Application TD Q72H for dizziness No Start Date 08/12/2013 Inactive ipratropium-albuterol 0.5 mg-3 mg(2.5 mg base)/3 mL ne bulization soln RxNorm: 5582673 1 Unit Dose INH Q4H No Start Date 01/16/2019 Inactive Medication Administered No Medication Administered data Immunizations Vaccine Codes Date Status Influenza CVX: 135 08/07/2019 Complete Pneumococcal CVX: 33 07/24/2017 Complete Influenza CVX: 135 06/13/2016 Complete Pneumococcal CVX: 133 06/13/2016 Complete Influenza CVX: 141 07/10/2012 Pneumovax Unknown 07/10/2012 Results Observation Observation Code Item Item Code Result Date S ervice Location COMPLETE BLOOD COUNT [id number] WBC 5.5 10e9/L 06/17/20 19 Unknown COMPLETE BLOOD COUNT [id number] RBC 3.92 10e12/L 2018 Unknown COMPLETE BLOOD COUNT 8293087 HEMOGLOBIN 10.9 g/dL 06/17/20 19 Unknown COMPLETE BLOOD COUNT [id number] HEMATOCRIT 34.8 % 06/17/20 19 Unknown COMPLETE BLOOD COUNT 7015262 MCV 88.8 fL 9 Unknown COMPLETE BLOOD COUNT 2209804 MCH 27.8 pg 9 Unknown COMPLETE BLOOD COUNT 1395833 MCHC 31.3 g/dL 9 Unknown COMPLETE BLOOD COUNT 9347345 PLATELET COUNT 239 10e9/L Unknown COMPLETE BLOOD COUNT 6705506 Mean Plt Volume 10.0 fL Unknown COMPLETE BLOOD COUNT 1006732 Neut Auto 68.0 % 9 Unknown COMPLETE BLOOD COUNT 2304874 Lymph Auto 14.8 % 06/17/20 19 Unknown COMPLETE BLOOD COUNT 5703599 [place] Auto 13.1 % 9 Unknown COMPLETE BLOOD COUNT 8984953 RDW 14.7 % 9 Unknown COMPLETE BLOOD COUNT 8253770 Eos Auto 3.6 % 9 Unknown COMPLETE BLOOD COUNT 5334383 Baso Auto 0.5 % 9 Unknown COMPLETE BLOOD COUNT 3971083 Neutrophil Abs 3.74 10e9/L Unknown COMPLETE BLOOD COUNT 5425731 Lymphocyte Abs 0.81 10e9/L Unknown COMPLETE BLOOD COUNT 5651035 Monocyte Abs 0.72 10e9/L 05/26 Unknown COMPLETE BLOOD COUNT 2511814 Eosinophil Abs 0.20 10e9/L Unknown COMPLETE BLOOD COUNT 6073805 RDW-SD 46.4 fL 9 Unknown COMPLETE BLOOD COUNT 9287453 Basophil Abs 0.03 10e9/L 05/26 Unknown IRON 93812 Iron 36 ug/dL 06/17/2019 Unknown VITAMIN B 12 06125 VITAMIN B12 540 pg/mL 06/17/2019 Unkn own GFR CALC 3482595 GFR Non Afr Amr 59 mL/min 06/17/2019 Unk nown GFR CALC 0465317 GFR Afr Amr >60 mL/min 06/17/2019 Unknow n ERYTHROCYTE SEDIMENTATION RATE 32890 Sed Rate 34 mm/hr 06/17/2019 Unknown THYROID STIMULATING HORMONE 54563 TSH 2.217 uIU/mL 06/17/2019 Unknown COMPREHENSIVE METABOLIC 33786 AST 12 U/L 2018 Unknown COMPREHENSIVE METABOLIC 35960 ALT 11 U/L 2018 Unknown COMPREHENSIVE METABOLIC 01936 BUN 17 mg/dL 2018 Unknown COMPREHENSIVE METABOLIC 91529 ALBUMIN 3.9 g/dL 2018 Unknown COMPREHENSIVE METABOLIC 15394 CHLORIDE 103 mmol/L 06/17 Unknown COMPREHENSIVE METABOLIC 99926 Bili Total 0.4 mg/dL 06/17 Unknown COMPREHENSIVE METABOLIC 95932 ALK PHOS 51 U/L 2018 Unknown COMPREHENSIVE METABOLIC 34563 SODIUM 140 mmol/L 06/17 Unknown COMPREHENSIVE METABOLIC 88493 CREATININE 1.20 mg/dL 05/26 Unknown COMPREHENSIVE METABOLIC 43535 CALCIUM 8.9 mg/dL 2018 Unknown COMPREHENSIVE METABOLIC 02736 POTASSIUM 4.5 mmol/L 06/17 Unknown COMPREHENSIVE METABOLIC 96384 Total Protein 6.1 g/dL Unknown COMPREHENSIVE METABOLIC 55922 Glucose 108 mg/dL 2018 Unknown COMPREHENSIVE METABOLIC 17132 Bicarbonate 27 mmol/L 05/26 Unknown COMPREHENSIVE METABOLIC 49944 AGAP 10 mmol/L 2018 Unknown FERRITIN 48265 FERRITIN 35.5 ng/mL 05/08/2019 Unknown VITAMIN D TOTAL (25 HYDROXY) 70839 Vitamin D 25 OH 26.0 ng/mL 05/08/2019 Unknown GLYCOSYLATED HEMOGLOBIN TEST 89413 Hgb A1c 29167-3 8.2 % 0 05/08/2019 Unknown MEAN GLUC 1209929 Calc Mean Gluc 189 mg/dL 05/08/2019 Unkn own GFR CALC 9476911 GFR Non Afr Amr >60 mL/min 05/08/2019 Un known GFR CALC 5474951 GFR Afr Amr >60 mL/min 05/08/2019 Unknow n VITAMIN B 12 25272 VITAMIN B12 197 pg/mL 05/08/2019 Unkn own IRON 54975 Iron 34 ug/dL 05/08/2019 Unknown COMPLETE BLOOD COUNT 3050601 WBC 6.9 10e9/L 05/08/20 19 Unknown COMPLETE BLOOD COUNT 0834307 RBC 3.95 10e12/L 2018 Unknown COMPLETE BLOOD COUNT 4477460 HEMOGLOBIN 11.1 g/dL 05/08/20 19 Unknown COMPLETE BLOOD COUNT 7482543 HEMATOCRIT 34.9 % 05/08/20 19 Unknown COMPLETE BLOOD COUNT 5266888 MCV 88.4 fL 9 Unknown COMPLETE BLOOD COUNT 6865265 MCH 28.1 pg 9 Unknown COMPLETE BLOOD COUNT 8852009 MCHC 31.8 g/dL 9 Unknown COMPLETE BLOOD COUNT 3475336 PLATELET COUNT 217 10e9/L Unknown COMPLETE BLOOD COUNT 3224574 Mean Plt Volume 9.6 fL Unknown COMPLETE BLOOD COUNT 4332130 Neut Auto 77.6 % 9 Unknown COMPLETE BLOOD COUNT 8940540 Lymph Auto 10.7 % 05/08/20 19 Unknown COMPLETE BLOOD COUNT 2467132 [place] Auto 10.4 % 9 Unknown COMPLETE BLOOD COUNT 3624167 RDW 14.7 % 9 Unknown COMPLETE BLOOD COUNT 4844990 Eos Auto 1.2 % 9 Unknown COMPLETE BLOOD COUNT 5864302 Baso Auto 0.1 % 9 Unknown COMPLETE BLOOD COUNT 6853291 Neutrophil Abs 5.35 10e9/L Unknown COMPLETE BLOOD COUNT 8717031 Lymphocyte Abs 0.74 10e9/L Unknown COMPLETE BLOOD COUNT 7431310 Monocyte Abs 0.72 10e9/L 04/24 Unknown COMPLETE BLOOD COUNT 5916253 Eosinophil Abs 0.08 10e9/L Unknown COMPLETE BLOOD COUNT 5472119 RDW-SD 46.6 fL 9 Unknown COMPLETE BLOOD COUNT 4228570 Basophil Abs 0.01 10e9/L 04/24 Unknown COMPREHENSIVE METABOLIC 58402 AST 13 U/L 2018 Unknown COMPREHENSIVE METABOLIC 81887 ALT 9 U/L 2018 Unknown COMPREHENSIVE METABOLIC 77945 BUN 18 mg/dL 2018 Unknown COMPREHENSIVE METABOLIC 72445 ALBUMIN 4.3 g/dL 2018 Unknown COMPREHENSIVE METABOLIC 86475 CHLORIDE 99 mmol/L 2018 Unknown COMPREHENSIVE METABOLIC 73965 Bili Total 0.4 mg/dL 05/08 Unknown COMPREHENSIVE METABOLIC 46643 ALK PHOS 48 U/L 2018 Unknown COMPREHENSIVE METABOLIC 83138 SODIUM 137 mmol/L 05/08 Unknown COMPREHENSIVE METABOLIC 33837 CREATININE 0.79 mg/dL 04/24 Unknown COMPREHENSIVE METABOLIC 39452 CALCIUM 9.5 mg/dL 2018 Unknown COMPREHENSIVE METABOLIC 87844 POTASSIUM 4.0 mmol/L 05/08 Unknown COMPREHENSIVE METABOLIC 82937 Total Protein 6.3 g/dL Unknown COMPREHENSIVE METABOLIC 76639 Glucose 232 mg/dL 2018 Unknown COMPREHENSIVE METABOLIC 35502 Bicarbonate 27 mmol/L 04/24 Unknown COMPREHENSIVE METABOLIC 87615 AGAP 11 mmol/L 2018 Unknown GLYCOSYLATED HEMOGLOBIN TEST 56085 Hgb A1c 18046-2 8.9 % 0 12/10/2018 Unknown MEAN GLUC 3323245 Calc Mean Gluc 209 mg/dL 12/10/2018 Unkn own LIPID GROUP 75525 Cholesterol 145 mg/dL 12/09/2018 Unkno wn LIPID GROUP 18254 Triglyceride 235 mg/dL 12/09/2018 Unkn own LIPID GROUP 33200 HDL CHOLESTEROL 40 mg/dL 12/09/2018 U nknown LIPID GROUP 37551 Chol/HDL Ratio 3.62 ratio 12/09/2018 U nknown LIPID GROUP 18988 NON-HDL Chol 105 mg/dL 12/09/2018 Unkn own LIPID GROUP 76262 LDL Cholesterol 58 mg/dL 12/09/2018 U nknown THYROID STIMULATING HORMONE 67737 TSH 1.071 uIU/mL 12/09/2018 Unknown GFR CALC 9299406 GFR Non Afr Amr >60 mL/min 12/09/2018 Un known GFR CALC 3041938 GFR Afr Amr >60 mL/min 12/09/2018 Unknow n COMPLETE BLOOD COUNT 1019949 WBC 7.6 10e9/L 12/10/19 19 Unknown COMPLETE BLOOD COUNT 3839317 RBC 3.97 10e12/L 2018 Unknown COMPLETE BLOOD COUNT 7173450 HEMOGLOBIN 11.4 g/dL 12/10/19 19 Unknown COMPLETE BLOOD COUNT 9824793 HEMATOCRIT 35.8 % 12/10/19 19 Unknown COMPLETE BLOOD COUNT 8667189 MCV 90.2 fL 9 Unknown COMPLETE BLOOD COUNT 8736993 MCH 28.7 pg 9 Unknown COMPLETE BLOOD COUNT 7804638 MCHC 31.8 g/dL 9 Unknown COMPLETE BLOOD COUNT 1955357 PLATELET COUNT 200 10e9/L Unknown COMPLETE BLOOD COUNT 3449830 Mean Plt Volume 10.1 fL Unknown COMPLETE BLOOD COUNT 0530085 Neut Auto 79.0 % 9 Unknown COMPLETE BLOOD COUNT 4615590 Lymph Auto 8.3 % 12/10/19 19 Unknown COMPLETE BLOOD COUNT 5527171 [place] Auto 10.8 % 9 Unknown COMPLETE BLOOD COUNT 6485410 RDW 14.6 % 9 Unknown COMPLETE BLOOD COUNT 5480434 Eos Auto 1.5 % 9 Unknown COMPLETE BLOOD COUNT 7899950 Baso Auto 0.4 % 9 Unknown COMPLETE BLOOD COUNT 0469788 Neutrophil Abs 6.00 10e9/L Unknown COMPLETE BLOOD COUNT 7829347 Lymphocyte Abs 0.63 10e9/L Unknown COMPLETE BLOOD COUNT 9722261 Monocyte Abs 0.82 10e9/L 11/22 Unknown COMPLETE BLOOD COUNT 5015507 Eosinophil Abs 0.11 10e9/L Unknown COMPLETE BLOOD COUNT 0425696 RDW-SD 46.9 fL 9 Unknown COMPLETE BLOOD COUNT 8756089 Basophil Abs 0.03 10e9/L 11/22 Unknown COMPREHENSIVE METABOLIC 93903 AST 11 U/L 2018 Unknown COMPREHENSIVE METABOLIC 19227 ALT 11 U/L 2018 Unknown COMPREHENSIVE METABOLIC 36959 BUN 21 mg/dL 2018 Unknown COMPREHENSIVE METABOLIC 39775 ALBUMIN 4.7 g/dL 2018 Unknown COMPREHENSIVE METABOLIC 20661 CHLORIDE 99 mmol/L 2018 Unknown COMPREHENSIVE METABOLIC 80472 Bili Total 0.4 mg/dL 12/09 Unknown COMPREHENSIVE METABOLIC 54648 ALK PHOS 73 U/L 2018 Unknown COMPREHENSIVE METABOLIC 44174 SODIUM 137 mmol/L 12/09 Unknown COMPREHENSIVE METABOLIC 26172 CREATININE 1.12 mg/dL 11/22 Unknown COMPREHENSIVE METABOLIC 69978 CALCIUM 9.4 mg/dL 2018 Unknown COMPREHENSIVE METABOLIC 97047 POTASSIUM 4.2 mmol/L 12/09 Unknown COMPREHENSIVE METABOLIC 13336 Total Protein 6.8 g/dL Unknown COMPREHENSIVE METABOLIC 95621 Glucose 194 mg/dL 2018 Unknown COMPREHENSIVE METABOLIC 03198 Bicarbonate 30 mmol/L 11/22 Unknown COMPREHENSIVE METABOLIC 70057 AGAP 8 mmol/L 2018 Unknown FREE T4 93909 T4 Free 0.86 ng/dL 12/09/2018 Unknown COMPLETE BLOOD COUNT 6463396 WBC 6.8 10e9/L 04/17/20 17 Unknown COMPLETE BLOOD COUNT 1654110 RBC 3.86 10e12/L 2016 Unknown COMPLETE BLOOD COUNT 3695665 HEMOGLOBIN 9.8 g/dL 04/17/20 17 Unknown COMPLETE BLOOD COUNT 9210919 HEMATOCRIT 31.1 % 04/17/20 17 Unknown COMPLETE BLOOD COUNT 9549471 MCV 80.6 fL 7 Unknown COMPLETE BLOOD COUNT 1295209 MCH 25.4 pg 7 Unknown COMPLETE BLOOD COUNT 9605428 MCHC 31.5 g/dL 7 Unknown COMPLETE BLOOD COUNT 1798993 PLATELET COUNT 247 10e9/L Unknown COMPLETE BLOOD COUNT 3496938 Mean Plt Volume 9.7 fL Unknown COMPLETE BLOOD COUNT 7824312 Neut Auto 74.1 % 7 Unknown COMPLETE BLOOD COUNT 3670008 Lymph Auto 12.0 % 04/17/20 17 Unknown COMPLETE BLOOD COUNT 6092959 [place] Auto 10.8 % 7 Unknown COMPLETE BLOOD COUNT 3312574 RDW 15.9 % 7 Unknown COMPLETE BLOOD COUNT 6630240 Eos Auto 2.5 % 7 Unknown COMPLETE BLOOD COUNT 9320327 Baso Auto 0.6 % 7 Unknown COMPLETE BLOOD COUNT 0098987 Neutrophil Abs 5.04 10e9/L Unknown COMPLETE BLOOD COUNT 4926672 Lymphocyte Abs 0.82 10e9/L Unknown COMPLETE BLOOD COUNT 2633547 Monocyte Abs 0.73 10e9/L 03/25 Unknown COMPLETE BLOOD COUNT 1509468 Eosinophil Abs 0.17 10e9/L Unknown COMPLETE BLOOD COUNT 3442189 RDW-SD 44.4 fL 7 Unknown COMPLETE BLOOD COUNT 0768272 Basophil Abs 0.04 10e9/L 03/25 Unknown MEAN GLUC 3180465 Calc Mean Gluc 223 mg/dL 04/17/2017 Unkn own GFR CALC 9155525 GFR Non Afr Amr >60 mL/min 04/17/2017 Un known GFR CALC 7484629 GFR Afr Amr >60 mL/min 04/17/2017 Unknow n GLYCOSYLATED HEMOGLOBIN TEST 39665 Hgb A1c 25930-4 9.4 % 0 04/17/2017 Unknown IRON 81809 Iron 37 ug/dL 04/17/2017 Unknown VITAMIN B 12 06643 VITAMIN B12 280 pg/mL 04/17/2017 Unkn own THYROID STIMULATING HORMONE 90742 TSH 2.481 uIU/mL 04/17/2017 Unknown COMPREHENSIVE METABOLIC 21118 AST 13 U/L 2016 Unknown COMPREHENSIVE METABOLIC 59749 ALT 12 U/L 2016 Unknown COMPREHENSIVE METABOLIC 87619 BUN 18 mg/dL 2016 Unknown COMPREHENSIVE METABOLIC 87323 ALBUMIN 4.7 g/dL 2016 Unknown COMPREHENSIVE METABOLIC 07712 CHLORIDE 103 mmol/L 04/17 Unknown COMPREHENSIVE METABOLIC 88015 Bili Total 0.4 mg/dL 04/17 Unknown COMPREHENSIVE METABOLIC 47541 ALK PHOS 49 U/L 2016 Unknown COMPREHENSIVE METABOLIC 35736 SODIUM 140 mmol/L 04/17 Unknown COMPREHENSIVE METABOLIC 20350 CREATININE 1.14 mg/dL 03/25 Unknown COMPREHENSIVE METABOLIC 02326 CALCIUM 9.4 mg/dL 2016 Unknown COMPREHENSIVE METABOLIC 55584 POTASSIUM 4.4 mmol/L 04/17 Unknown COMPREHENSIVE METABOLIC 69553 Total Protein 6.7 g/dL Unknown COMPREHENSIVE METABOLIC 47572 Glucose 266 mg/dL 2016 Unknown COMPREHENSIVE METABOLIC 91500 Bicarbonate 25 mmol/L 03/25 Unknown COMPREHENSIVE METABOLIC 38058 AGAP 12 mmol/L 2016 Unknown FERRITIN 47704 FERRITIN 10.0 ng/mL 04/17/2017 Unknown COMPLETE BLOOD COUNT 9647507 WBC 6.8 10e9/L 12/22/19 17 Unknown COMPLETE BLOOD COUNT 7458452 RBC 3.70 10e12/L 2016 Unknown COMPLETE BLOOD COUNT 2041163 HEMOGLOBIN 8.0 g/dL 12/22/19 17 Unknown COMPLETE BLOOD COUNT 8740053 HEMATOCRIT 26.7 % 12/22/19 17 Unknown COMPLETE BLOOD COUNT 3557175 MCV 72.2 fL 7 Unknown COMPLETE BLOOD COUNT 0887223 MCH 21.6 pg 7 Unknown COMPLETE BLOOD COUNT 2260380 MCHC 30.0 g/dL 7 Unknown COMPLETE BLOOD COUNT 3848087 PLATELET COUNT 290 10e9/L Unknown COMPLETE BLOOD COUNT 5463038 Mean Plt Volume 9.3 fL Unknown COMPLETE BLOOD COUNT 9084953 Neut Auto 80.2 % 7 Unknown COMPLETE BLOOD COUNT 4369359 Lymph Auto 9.8 % 12/22/19 17 Unknown COMPLETE BLOOD COUNT 2106085 [place] Auto 8.1 % 7 Unknown COMPLETE BLOOD COUNT 3039952 RDW 17.4 % 7 Unknown COMPLETE BLOOD COUNT 6297534 Eos Auto 1.5 % 7 Unknown COMPLETE BLOOD COUNT 4767300 Baso Auto 0.4 % 7 Unknown COMPLETE BLOOD COUNT 0063226 Neutrophil Abs 5.45 10e9/L Unknown COMPLETE BLOOD COUNT 4368787 Lymphocyte Abs 0.67 10e9/L Unknown COMPLETE BLOOD COUNT 4213307 Monocyte Abs 0.55 10e9/L 11/24 Unknown COMPLETE BLOOD COUNT 7121573 Eosinophil Abs 0.10 10e9/L Unknown COMPLETE BLOOD COUNT 1764158 RDW-SD 44.1 fL 7 Unknown COMPLETE BLOOD COUNT 1734425 Basophil Abs 0.03 10e9/L 11/24 Unknown COMPLETE BLOOD COUNT 4075220 WBC 7.6 10e9/L 12/13/19 17 Unknown COMPLETE BLOOD COUNT 5632584 RBC 3.71 10e12/L 2016 Unknown COMPLETE BLOOD COUNT 5135994 HEMOGLOBIN 8.0 g/dL 12/13/19 17 Unknown COMPLETE BLOOD COUNT 2003772 HEMATOCRIT 27.3 % 12/13/19 17 Unknown COMPLETE BLOOD COUNT 8823148 MCV 73.6 fL 7 Unknown COMPLETE BLOOD COUNT 9063306 MCH 21.6 pg 7 Unknown COMPLETE BLOOD COUNT 7544551 MCHC 29.3 g/dL 7 Unknown COMPLETE BLOOD COUNT 0946710 PLATELET COUNT 330 10e9/L Unknown COMPLETE BLOOD COUNT 4583815 Mean Plt Volume 9.7 fL Unknown COMPLETE BLOOD COUNT 7466365 Neut Auto 73.2 % 7 Unknown COMPLETE BLOOD COUNT 6106188 Lymph Auto 14.5 % 12/13/19 17 Unknown COMPLETE BLOOD COUNT 2891699 [place] Auto 10.5 % 7 Unknown COMPLETE BLOOD COUNT 8693405 RDW 17.3 % 7 Unknown COMPLETE BLOOD COUNT 1526664 Eos Auto 1.3 % 7 Unknown COMPLETE BLOOD COUNT 2744975 Baso Auto 0.5 % 7 Unknown COMPLETE BLOOD COUNT 2290773 Neutrophil Abs 5.56 10e9/L Unknown COMPLETE BLOOD COUNT 7880274 Lymphocyte Abs 1.10 10e9/L Unknown COMPLETE BLOOD COUNT 6778377 Monocyte Abs 0.80 10e9/L 11/23 Unknown COMPLETE BLOOD COUNT 2347034 Eosinophil Abs 0.10 10e9/L Unknown COMPLETE BLOOD COUNT 5614116 RDW-SD 45.2 fL 7 Unknown COMPLETE BLOOD COUNT 1073811 Basophil Abs 0.04 10e9/L 11/23 Unknown IRON 87842 Iron 69 ug/dL 03/09/2016 Unknown VITAMIN B 12 47182 VITAMIN B12 311 pg/mL 03/09/2016 Unkn own MEAN GLUC 6424455 Mean Glucose 260 mg/dL 03/07/2016 Unknow n GLYCOSYLATED HEMOGLOBIN TEST 02164 Hgb A1c 88312-1 10.7 % 0 03/07/2016 Unknown COMPREHENSIVE METABOLIC 30855 AST 14 U/L 2015 Unknown COMPREHENSIVE METABOLIC 35238 ALT 21 U/L 2015 Unknown COMPREHENSIVE METABOLIC 05650 BUN 27 mg/dL 2015 Unknown COMPREHENSIVE METABOLIC 86351 ALBUMIN 4.5 g/dL 2015 Unknown COMPREHENSIVE METABOLIC 96973 CHLORIDE 101 mmol/L 03/06 Unknown COMPREHENSIVE METABOLIC 54267 Bili Total 0.4 mg/dL 03/06 Unknown COMPREHENSIVE METABOLIC 88988 ALK PHOS 49 U/L 2015 Unknown COMPREHENSIVE METABOLIC 99752 SODIUM 136 mmol/L 03/06 Unknown COMPREHENSIVE METABOLIC 16075 CREATININE 1.16 mg/dL 02/22 Unknown COMPREHENSIVE METABOLIC 79818 CALCIUM 9.9 mg/dL 2015 Unknown COMPREHENSIVE METABOLIC 74924 POTASSIUM 4.5 mmol/L 03/06 Unknown COMPREHENSIVE METABOLIC 93616 Total Protein 6.7 g/dL Unknown COMPREHENSIVE METABOLIC 75667 Glucose 245 mg/dL 2015 Unknown COMPREHENSIVE METABOLIC 67057 Bicarbonate 24 mmol/L 02/22 Unknown COMPREHENSIVE METABOLIC 81032 AGAP 11 mmol/L 2015 Unknown THYROID STIMULATING HORMONE 52028 TSH 0.775 uIU/mL 03/06/2016 Unknown TESTOSTERONE TOTAL 83325 Testos Total 96 ng/dL 03/06/20 16 Unknown LIPID GROUP 43373 Cholesterol 146 mg/dL 03/06/2016 Unkno wn LIPID GROUP 25080 Triglyceride 249 mg/dL 03/06/2016 Unkn own LIPID GROUP 77162 HDL CHOLESTEROL 46 mg/dL 03/06/2016 U nknown LIPID GROUP 23308 Chol/HDL Ratio 3.17 ratio 03/06/2016 U nknown LIPID GROUP 40580 NON-HDL Chol 100 mg/dL 03/06/2016 Unkn own LIPID GROUP 18855 LDL Cholesterol 50 mg/dL 03/06/2016 U nknown COMPLETE BLOOD COUNT 2284522 WBC 11.2 10e9/L 016 Unknown COMPLETE BLOOD COUNT 9007329 RBC 3.94 10e12/L 2015 Unknown COMPLETE BLOOD COUNT 9139713 HEMOGLOBIN 11.4 g/dL 03/06/20 16 Unknown COMPLETE BLOOD COUNT 6252406 HEMATOCRIT 33.7 % 03/06/20 16 Unknown COMPLETE BLOOD COUNT 5679119 MCV 85.5 fL 6 Unknown COMPLETE BLOOD COUNT 9157853 MCH 28.9 pg 6 Unknown COMPLETE BLOOD COUNT 1043209 MCHC 33.8 g/dL 6 Unknown COMPLETE BLOOD COUNT 5993637 PLATELET COUNT 204 10e9/L Unknown COMPLETE BLOOD COUNT 5683947 Mean Plt Volume 10.1 fL Unknown COMPLETE BLOOD COUNT 9315930 Neut Auto 85.9 % 6 Unknown COMPLETE BLOOD COUNT 6200483 Lymph Auto 6.8 % 03/06/20 16 Unknown COMPLETE BLOOD COUNT 4127409 [place] Auto 7.0 % 6 Unknown COMPLETE BLOOD COUNT 1420366 RDW 13.7 % 6 Unknown COMPLETE BLOOD COUNT 5344167 Eos Auto 0.1 % 6 Unknown COMPLETE BLOOD COUNT 4448790 Baso Auto 0.2 % 6 Unknown COMPLETE BLOOD COUNT 3177123 Neutrophil Abs 9.62 10e9/L Unknown COMPLETE BLOOD COUNT 5935038 Lymphoctye Abs 0.76 10e9/L Unknown COMPLETE BLOOD COUNT 5926650 Monocyte Abs 0.78 10e9/L 02/22 Unknown COMPLETE BLOOD COUNT 8448577 Eosinophil Abs 0.01 10e9/L Unknown COMPLETE BLOOD COUNT 4683301 RDW-SD 41.9 fL 6 Unknown COMPLETE BLOOD COUNT 2434366 Basophil Abs 0.02 10e9/L 02/22 Unknown FREE T4 08577 T4 Free 0.89 ng/dL 03/06/2016 Unknown GFR CALC 2965448 GFR Non Afr Amr >60 mL/min 03/06/2016 Un known GFR CALC 6583766 GFR Afr Amr >60 mL/min 03/06/2016 Unknow n PSA EQUIMOLAR JONATAN 71447 PSA Total 0.78 ng/mL 6 Unknown FREE T4 33682 FREE T4 0.90 NG/DL 07/01/2015 Unknown LIPID GROUP 40111 HDL TEST 44 MG/DL 07/01/2015 Unknown LIPID GROUP 23654 TRIG 303 MG/DL 07/01/2015 Unknown LIPID GROUP 18128 TEST LDL 56 MG/DL 07/01/2015 Unknown LIPID GROUP 14284 CHOL 161 MG/DL 07/01/2015 Unknown LIPID GROUP 56024 RCHOL/HDL 3.66 RATIO 07/01/2015 Unknow n LIPID GROUP 86302 NON-HDL CH 117 MG/DL 07/01/2015 Unknow n THYROID STIMULATING HORMONE 41496 TSH 1.783 uIU/ML 07/01/2015 Unknown COMPLETE BLOOD COUNT 8281809 WBC 6.6 10e9/L 07/01/20 15 Unknown COMPLETE BLOOD COUNT 2376900 RBC 4.18 10e12/L 2014 Unknown COMPLETE BLOOD COUNT 1696549 HGB 12.2 g/dL 5 Unknown COMPLETE BLOOD COUNT 5029737 HCT DET 37.0 % 5 Unknown COMPLETE BLOOD COUNT 8285374 MCV 88.5 fL 5 Unknown COMPLETE BLOOD COUNT 3816102 MCH 29.2 pg 5 Unknown COMPLETE BLOOD COUNT 2634583 MCHC 33.0 g/dL 5 Unknown COMPLETE BLOOD COUNT 0667482 PLT 224 10e9/L 07/01/20 15 Unknown COMPLETE BLOOD COUNT 7687821 MPV 10.4 fL 5 Unknown COMPLETE BLOOD COUNT 2580058 SUSIE % 72.6 % 5 Unknown COMPLETE BLOOD COUNT 4725090 LY % 14.1 % 5 Unknown COMPLETE BLOOD COUNT 1165026 MON % 10.2 % 5 Unknown COMPLETE BLOOD COUNT 0040512 EOS % 2.6 % 5 Unknown COMPLETE BLOOD COUNT 2147860 BASO % 0.5 % 5 Unknown COMPLETE BLOOD COUNT 7493970 RDW 14.1 % 5 Unknown COMPLETE BLOOD COUNT 2545952 ABS SUSIE 4.79 10e9/L 015 Unknown COMPLETE BLOOD COUNT 3761907 ABS LYMPH 0.93 10e9/L 015 Unknown COMPLETE BLOOD COUNT 0913319 ABS MONO 0.67 10e9/L 015 Unknown COMPLETE BLOOD COUNT 5949256 ABS EOS 0.17 10e9/L 015 Unknown COMPLETE BLOOD COUNT 2370944 ABS BASO 0.03 10e9/L 015 Unknown COMPLETE BLOOD COUNT 6713045 RDW-SD 43.9 fL 5 Unknown PSA EQUIMOLAR JONATAN 14929 PSA EQ 0.73 NG/ML 5 Unknown COMPREHENSIVE METABOLIC 27269 AST 24 U/L 2014 Unknown COMPREHENSIVE METABOLIC 32069 ALT 26 IU/L 2014 Unknown COMPREHENSIVE METABOLIC 09510 BUN 26 MG/DL 2014 Unknown COMPREHENSIVE METABOLIC 24535 ALBUMIN 4.6 GM/DL 2014 Unknown COMPREHENSIVE METABOLIC 63237 CHLORIDE 102 MMOL/L 06/01 Unknown COMPREHENSIVE METABOLIC 86591 BILI TOT 0.5 MG/DL 2014 Unknown COMPREHENSIVE METABOLIC 99313 ALK PHOS 56 U/L 2014 Unknown COMPREHENSIVE METABOLIC 48185 SODIUM 136 MMOL/L 06/01 Unknown COMPREHENSIVE METABOLIC 59644 CREATININE 1.16 MG/DL 04/2015 Unknown COMPREHENSIVE METABOLIC 37197 CALCIUM 9.8 MG/DL 2014 Unknown COMPREHENSIVE METABOLIC 39062 POTASSIUM 4.6 MMOL/L 06/01 Unknown COMPREHENSIVE METABOLIC 10470 PROT TOT 7.4 GM/DL 2014 Unknown COMPREHENSIVE METABOLIC 02852 Glucose 223 MG/DL 2014 Unknown COMPREHENSIVE METABOLIC 89515 BICARB 27 MMOL/L 2014 Unknown COMPREHENSIVE METABOLIC 23496 ANION GAP 7 MEQ/L 2014 Unknown GFR CALC 6366634 GFR AA >60 ML/MIN 06/01/2015 Unknown GFR CALC 5082467 GFR NON-AA >60 ML/MIN 06/01/2015 Unknown GLYCOSYLATED HEMOGLOBIN TEST 91450 A1C HPLC 39686-3 8.9 % 0 06/01/2015 Unknown GFR CALC 2578341 GFR AA >60 ML/MIN 02/25/2015 Unknown GFR CALC 8928562 GFR NON-AA >60 ML/MIN 02/25/2015 Unknown COMPREHENSIVE METABOLIC 36036 AST 24 U/L 2014 Unknown COMPREHENSIVE METABOLIC 13124 ALT 25 IU/L 2014 Unknown COMPREHENSIVE METABOLIC 73673 BUN 14 MG/DL 2014 Unknown COMPREHENSIVE METABOLIC 98301 ALBUMIN 4.5 GM/DL 2014 Unknown COMPREHENSIVE METABOLIC 62260 CHLORIDE 99 MMOL/L 2014 Unknown COMPREHENSIVE METABOLIC 84498 BILI TOT 0.5 MG/DL 2014 Unknown COMPREHENSIVE METABOLIC 30421 ALK PHOS 48 U/L 2014 Unknown COMPREHENSIVE METABOLIC 66775 SODIUM 136 MMOL/L 02/25 Unknown COMPREHENSIVE METABOLIC 50288 CREATININE 0.97 MG/DL 12/2014 Unknown COMPREHENSIVE METABOLIC 94770 CALCIUM 9.9 MG/DL 2014 Unknown COMPREHENSIVE METABOLIC 41155 POTASSIUM 4.4 MMOL/L 02/25 Unknown COMPREHENSIVE METABOLIC 19411 PROT TOT 7.1 GM/DL 2014 Unknown COMPREHENSIVE METABOLIC 70785 Glucose 171 MG/DL 2014 Unknown COMPREHENSIVE METABOLIC 98446 BICARB 25 MMOL/L 2014 Unknown COMPREHENSIVE METABOLIC 77606 ANION GAP 12 MEQ/L 2014 Unknown PROTEIN/CREAT URINE WITH RATIO 88421|19010 PROT R U 19 MG/D L 08/27/2014 Unknown PROTEIN/CREAT URINE WITH RATIO 73237|72361 CREAT R U 111 MG/ DL 08/27/2014 Unknown PROTEIN/CREAT URINE WITH RATIO 09265|71677 XRATIO P/C 171 MG /G 08/27/2014 Unknown MICROALBUMIN URINE RANDOM 39436 MICRL MG/L 34.7 MG/L 12/2013 Unknown MICROALBUMIN URINE RANDOM 09819 XM.ALB/CRE 32.7 MG/GCR 1 10/28/2013 Unknown MICROALBUMIN URINE RANDOM 86758 CREAT MG/D 106 MG/DL 12/2013 Unknown MICROALBUMIN URINE RANDOM 54416 CRE/100 1.06 G/L 12/2013 Unknown COMPLETE BLOOD COUNT [id number] WBC 7.1 10e9/L 08/05/20 14 Unknown COMPLETE BLOOD COUNT 9157625 RBC 4.35 10e12/L 2013 Unknown COMPLETE BLOOD COUNT 3505106 HGB 12.9 g/dL 4 Unknown COMPLETE BLOOD COUNT 2191005 HCT DET 39.4 % 4 Unknown COMPLETE BLOOD COUNT 4122760 MCV 90.6 fL 4 Unknown COMPLETE BLOOD COUNT 1219271 MCH 29.7 pg 4 Unknown COMPLETE BLOOD COUNT 1597556 MCHC 32.7 g/dL 4 Unknown COMPLETE BLOOD COUNT [id number] PLT 240 10e9/L 08/05/20 14 Unknown COMPLETE BLOOD COUNT [id number] MPV 10.3 fL 4 Unknown COMPLETE BLOOD COUNT [id number] SUSIE % 70.0 % 4 Unknown COMPLETE BLOOD COUNT [id number] LY % 16.4 % 4 Unknown COMPLETE BLOOD COUNT [id number] MON % 9.2 % 4 Unknown COMPLETE BLOOD COUNT [id number] EOS % 3.8 % 4 Unknown COMPLETE BLOOD COUNT [id number] BASO % 0.6 % 4 Unknown COMPLETE BLOOD COUNT [id number] RDW 13.4 % 4 Unknown COMPLETE BLOOD COUNT [id number] ABS SUISE 4.97 10e9/L 014 Unknown COMPLETE BLOOD COUNT [id number] ABS LYMPH 1.16 10e9/L 014 Unknown COMPLETE BLOOD COUNT [id number] ABS MONO 0.65 10e9/L 014 Unknown COMPLETE BLOOD COUNT [id number] ABS EOS 0.27 10e9/L 014 Unknown COMPLETE BLOOD COUNT [id number] ABS BASO 0.04 10e9/L 014 Unknown COMPLETE BLOOD COUNT [id number] RDW-SD 43.3 fL 4 Unknown FREE T4 30627 FREE T4 1.02 NG/DL 08/05/2014 Unknown GFR CALC 2518882 GFR AA >60 ML/MIN 08/05/2014 Unknown GFR CALC 9037957 GFR NON-AA >60 ML/MIN 08/05/2014 Unknown GLYCOSYLATED HEMOGLOBIN TEST 69174 A1C HPLC 13617-0 7.7 % 1 10/05/2013 Unknown COMPREHENSIVE METABOLIC 61907 AST 19 U/L 2013 Unknown COMPREHENSIVE METABOLIC 48955 ALT 21 IU/L 2013 Unknown COMPREHENSIVE METABOLIC 48612 BUN 25 MG/DL 2013 Unknown COMPREHENSIVE METABOLIC 01864 ALBUMIN 4.6 GM/DL 2013 Unknown COMPREHENSIVE METABOLIC 65045 CHLORIDE 103 MMOL/L 08/05 Unknown COMPREHENSIVE METABOLIC 23861 BILI TOT 0.4 MG/DL 2013 Unknown COMPREHENSIVE METABOLIC 99737 ALK PHOS 45 U/L 2013 Unknown COMPREHENSIVE METABOLIC 53223 SODIUM 138 MMOL/L 08/05 Unknown COMPREHENSIVE METABOLIC 15879 CREATININE 1.01 MG/DL 07/25 Unknown COMPREHENSIVE METABOLIC 97951 CALCIUM 9.8 MG/DL 2013 Unknown COMPREHENSIVE METABOLIC 78402 POTASSIUM 4.7 MMOL/L 08/05 Unknown COMPREHENSIVE METABOLIC 71106 PROT TOT 7.0 GM/DL 2013 Unknown COMPREHENSIVE METABOLIC 48760 Glucose 145 MG/DL 2013 Unknown COMPREHENSIVE METABOLIC 91578 BICARB 27 MMOL/L 2013 Unknown COMPREHENSIVE METABOLIC 10925 ANION GAP 8 MEQ/L 2013 Unknown THYROID STIMULATING HORMONE 40348 TSH 1.922 uIU/ML 08/05/2014 Unknown LIPID GROUP 24626 HDL TEST 47 MG/DL 08/05/2014 Unknown LIPID GROUP 88980 TRIG 224 MG/DL 08/05/2014 Unknown LIPID GROUP 44228 TEST LDL 125 MG/DL 08/05/2014 Unknown LIPID GROUP 10620 CHOL 217 MG/DL 08/05/2014 Unknown LIPID GROUP 10569 RCHOL/HDL 4.62 RATIO 08/05/2014 Unknow n LIPID GROUP 53647 NON-HDL CH 170 MG/DL 08/05/2014 Unknow n MYCOPLASMA ANTIBODY, IFA [id number] MYCO G IFA 1:256 03/24 Unknown MYCOPLASMA ANTIBODY, IFA [id number] MYCO M IFA <1:10 03/24 Unknown MYCOPLASMA ANTIBODY, IFA [id number] MYCO INTER SEE BELO 03/24 Unknown COMPLETE BLOOD COUNT [id number] WBC 8.3 10e9/L 04/09/20 13 Unknown COMPLETE BLOOD COUNT [id number] RBC 4.61 10e12/L 2012 Unknown COMPLETE BLOOD COUNT [id number] HGB 13.9 g/dL 3 Unknown COMPLETE BLOOD COUNT [id number] HCT DET 41.2 % 3 Unknown COMPLETE BLOOD COUNT [id number] MCV 89.4 fL 3 Unknown COMPLETE BLOOD COUNT [id number] MCH 30.2 pg 3 Unknown COMPLETE BLOOD COUNT [id number] MCHC 33.7 g/dL 3 Unknown COMPLETE BLOOD COUNT 8358498 PLT 249 10e9/L 04/09/20 13 Unknown COMPLETE BLOOD COUNT [id number] MPV 9.8 fL 3 Unknown COMPLETE BLOOD COUNT [id number] SUSIE % 65.9 % 3 Unknown COMPLETE BLOOD COUNT [id number] LY % 19.8 % 3 Unknown COMPLETE BLOOD COUNT [id number] MON % 10.8 % 3 Unknown COMPLETE BLOOD COUNT [id number] EOS % 3.0 % 3 Unknown COMPLETE BLOOD COUNT 1844457 BASO % 0.5 % 3 Unknown COMPLETE BLOOD COUNT [id number] RDW 14.0 % 3 Unknown COMPLETE BLOOD COUNT [id number] ABS SUSIE 5.47 10e9/L 013 Unknown COMPLETE BLOOD COUNT [id number] ABS LYMPH 1.64 10e9/L 013 Unknown COMPLETE BLOOD COUNT [id number] ABS MONO 0.90 10e9/L 013 Unknown COMPLETE BLOOD COUNT [id number] ABS EOS 0.25 10e9/L 013 Unknown COMPLETE BLOOD COUNT [id number] ABS BASO 0.04 10e9/L 013 Unknown COMPLETE BLOOD COUNT [id number] RDW-SD 45.0 fL 3 Unknown URIC ACID 00843 URIC ACID 5.3 MG/DL 02/12/2013 Unknown FREE T4 80102 FREE T4 1.09 NG/DL 02/11/2013 Unknown COMPLETE BLOOD COUNT [id number] WBC 6.3 10e9/L 02/12/20 13 Unknown COMPLETE BLOOD COUNT [id number] RBC 4.29 10e12/L 2012 Unknown COMPLETE BLOOD COUNT [id number] HGB 13.1 g/dL 3 Unknown COMPLETE BLOOD COUNT [id number] HCT DET 39.7 % 3 Unknown COMPLETE BLOOD COUNT 3276318 MCV 92.5 fL 3 Unknown COMPLETE BLOOD COUNT 3665906 MCH 30.5 pg 3 Unknown COMPLETE BLOOD COUNT 1796802 MCHC 33.0 g/dL 3 Unknown COMPLETE BLOOD COUNT [id number] PLT 247 10e9/L 02/12/20 13 Unknown COMPLETE BLOOD COUNT 1289681 MPV 10.0 fL 3 Unknown COMPLETE BLOOD COUNT [id number] SUSIE % 73.4 % 3 Unknown COMPLETE BLOOD COUNT [id number] LY % 13.5 % 3 Unknown COMPLETE BLOOD COUNT [id number] MON % 9.4 % 3 Unknown COMPLETE BLOOD COUNT [id number] EOS % 2.9 % 3 Unknown COMPLETE BLOOD COUNT [id number] BASO % 0.8 % 3 Unknown COMPLETE BLOOD COUNT 0574035 RDW 13.8 % 3 Unknown COMPLETE BLOOD COUNT 1284468 ABS SUSIE 4.62 10e9/L 013 Unknown COMPLETE BLOOD COUNT [id number] ABS LYMPH 0.85 10e9/L 013 Unknown COMPLETE BLOOD COUNT [id number] ABS MONO 0.59 10e9/L 013 Unknown COMPLETE BLOOD COUNT [id number] ABS EOS 0.18 10e9/L 013 Unknown COMPLETE BLOOD COUNT [id number] ABS BASO 0.05 10e9/L 013 Unknown COMPLETE BLOOD COUNT [id number] RDW-SD 45.7 fL 3 Unknown HEMOGLOBIN A1C (GLYCOSYLATED) 2879105 A1C HPLC 16891-2 7.5 % 02/11/2013 Unknown THYROID STIMULATING HORMONE 00769 TSH 1.466 uIU/ML 02/11/2013 Unknown VITAMIN B 12 FOLIC ACID 11581|37634 VIT B 12 625 PG/ML 01/23 Unknown VITAMIN B 12 FOLIC ACID 01585|41559 FOLIC ACID 15.6 NG/ML Unknown COMPREHENSIVE METABOLIC 21422 AST 18 U/L 2012 Unknown COMPREHENSIVE METABOLIC 48051 ALT 21 IU/L 2012 Unknown COMPREHENSIVE METABOLIC 29196 BUN 25 MG/DL 2012 Unknown COMPREHENSIVE METABOLIC 41488 ALBUMIN 4.6 GM/DL 2012 Unknown COMPREHENSIVE METABOLIC 59698 CHLORIDE 103 MMOL/L 02/11 Unknown COMPREHENSIVE METABOLIC 62821 BILI TOT 0.3 MG/DL 2012 Unknown COMPREHENSIVE METABOLIC 48001 ALK PHOS 53 U/L 2012 Unknown COMPREHENSIVE METABOLIC 19553 SODIUM 136 MMOL/L 02/11 Unknown COMPREHENSIVE METABOLIC 53907 CREATININE 1.16 MG/DL 01/23 Unknown COMPREHENSIVE METABOLIC 30290 CALCIUM 10.0 MG/DL 02/11 Unknown COMPREHENSIVE METABOLIC 45662 POTASSIUM 4.9 MMOL/L 02/11 Unknown COMPREHENSIVE METABOLIC 30762 PROT TOT 7.0 GM/DL 2012 Unknown COMPREHENSIVE METABOLIC 71688 Glucose 192 MG/DL 2012 Unknown COMPREHENSIVE METABOLIC 71313 BICARB 26 MMOL/L 2012 Unknown COMPREHENSIVE METABOLIC 16282 ANION GAP 7 MEQ/L 2012 Unknown GFR CALC 5916943 GFR AA >60 ML/MIN 02/11/2013 Unknown GFR CALC 9360468 GFR NON-AA >60 ML/MIN 02/11/2013 Unknown C-REACTIVE PROTEIN (CRP) QUANT 49428 CRP 2.7 MG/DL 02/11/2013 Unknown GFR CALC 9667181 GFR AA >60 ML/MIN 09/19/2012 Unknown GFR CALC 4531802 GFR NON-AA >60 ML/MIN 09/19/2012 Unknown HEMOGLOBIN A1C (GLYCOSYLATED) 1654759 A1C HPLC 60276-9 7.2 % 09/19/2012 Unknown COMPREHENSIVE METABOLIC 02151 AST 13 U/L 2011 Unknown COMPREHENSIVE METABOLIC 09337 ALT 17 IU/L 2011 Unknown COMPREHENSIVE METABOLIC 01632 BUN 25 MG/DL 2011 Unknown COMPREHENSIVE METABOLIC 12839 ALBUMIN 4.5 GM/DL 2011 Unknown COMPREHENSIVE METABOLIC 24688 CHLORIDE 104 MMOL/L 09/19 Unknown COMPREHENSIVE METABOLIC 45014 BILI TOT 0.3 MG/DL 2011 Unknown COMPREHENSIVE METABOLIC 28352 ALK PHOS 43 U/L 2011 Unknown COMPREHENSIVE METABOLIC 34820 SODIUM 139 MMOL/L 09/19 Unknown COMPREHENSIVE METABOLIC 27736 CREATININE 1.10 MG/DL 08/25 Unknown COMPREHENSIVE METABOLIC 69930 CALCIUM 9.8 MG/DL 2011 Unknown COMPREHENSIVE METABOLIC 78761 POTASSIUM 4.8 MMOL/L 09/19 Unknown COMPREHENSIVE METABOLIC 50494 PROT TOT 6.5 GM/DL 2011 Unknown COMPREHENSIVE METABOLIC 74897 Glucose 148 MG/DL 2011 Unknown COMPREHENSIVE METABOLIC 80833 BICARB 25 MMOL/L 2011 Unknown COMPREHENSIVE METABOLIC 62858 ANION GAP 10 MEQ/L 2011 Unknown LIPID GROUP 73518 HDL TEST 44 MG/DL 09/19/2012 Unknown LIPID GROUP 64526 TRIG 318 MG/DL 09/19/2012 Unknown LIPID GROUP 00563 TEST LDL 100 MG/DL 09/19/2012 Unknown LIPID GROUP 95737 CHOL 208 MG/DL 09/19/2012 Unknown LIPID GROUP 87845 RCHOL/HDL 4.73 RATIO 09/19/2012 Unknow n FREE T4 04688 FREE T4 0.87 NG/DL 05/06/2012 Unknown GLYCOSYLATED HEMOGLOBIN TEST 37289 A1C [facility] 19197-2 6.4 % 0 05/06/2012 Unknown LIPID GROUP 18278 HDL TEST 44 MG/DL 05/06/2012 Unknown LIPID GROUP 35907 TRIG 177 MG/DL 05/06/2012 Unknown LIPID GROUP 74826 TEST LDL 113 MG/DL 05/06/2012 Unknown LIPID GROUP 13264 CHOL 192 MG/DL 05/06/2012 Unknown LIPID GROUP 92478 RCHOL/HDL 4.36 RATIO 05/06/2012 Unknow n THYROID STIMULATING HORMONE 18907 TSH 1.151 uIU/ML 05/06/2012 Unknown COMPLETE BLOOD COUNT 54957 WBC 7.8 10e9/L 05/06/20 12 Unknown COMPLETE BLOOD COUNT 67389 RBC 4.31 10e12/L 2011 Unknown COMPLETE BLOOD COUNT 61285 HGB 12.8 g/dL 2 Unknown COMPLETE BLOOD COUNT 38857 HCT DET 39.1 % 2 Unknown COMPLETE BLOOD COUNT 42550 MCV 90.7 fL 2 Unknown COMPLETE BLOOD COUNT 72927 MCH 29.7 pg 2 Unknown COMPLETE BLOOD COUNT 50995 MCHC 32.7 g/dL 2 Unknown COMPLETE BLOOD COUNT 76858 PLT 207 10e9/L 05/06/20 12 Unknown COMPLETE BLOOD COUNT 94213 MPV 10.2 fL 2 Unknown COMPLETE BLOOD COUNT 02208 SUSIE % 74.2 % 2 Unknown COMPLETE BLOOD COUNT 10996 LY % 12.8 % 2 Unknown COMPLETE BLOOD COUNT 24388 MON % 11.0 % 2 Unknown COMPLETE BLOOD COUNT 77608 EOS % 1.7 % 2 Unknown COMPLETE BLOOD COUNT 96139 BASO % 0.3 % 2 Unknown COMPLETE BLOOD COUNT 80034 RDW 13.7 % 2 Unknown COMPLETE BLOOD COUNT 45884 ABS SUSIE 5.79 10e9/L 012 Unknown COMPLETE BLOOD COUNT 79598 ABS LYMPH 1.00 10e9/L 012 Unknown COMPLETE BLOOD COUNT 46043 ABS MONO 0.86 10e9/L 012 Unknown COMPLETE BLOOD COUNT 15391 ABS EOS 0.13 10e9/L 012 Unknown COMPLETE BLOOD COUNT 05615 ABS BASO 0.02 10e9/L 012 Unknown COMPLETE BLOOD COUNT 29106 RDW-SD 44.4 fL 2 Unknown COMPREHENSIVE METABOLIC 74779 AST 13 U/L 2011 Unknown COMPREHENSIVE METABOLIC 36936 ALT 14 IU/L 2011 Unknown COMPREHENSIVE METABOLIC 12014 BUN 17 MG/DL 2011 Unknown COMPREHENSIVE METABOLIC 54443 ALBUMIN 4.5 GM/DL 2011 Unknown COMPREHENSIVE METABOLIC 83882 CHLORIDE 101 MMOL/L 05/06 Unknown COMPREHENSIVE METABOLIC 54401 BILI TOT 0.5 MG/DL 2011 Unknown COMPREHENSIVE METABOLIC 33241 ALK PHOS 42 U/L 2011 Unknown COMPREHENSIVE METABOLIC 76177 SODIUM 141 MMOL/L 05/06 Unknown COMPREHENSIVE METABOLIC 46588 CREATININE 1.02 MG/DL 04/24 Unknown COMPREHENSIVE METABOLIC 17602 CALCIUM 9.7 MG/DL 2011 Unknown COMPREHENSIVE METABOLIC 94385 POTASSIUM 4.6 MMOL/L 05/06 Unknown COMPREHENSIVE METABOLIC 49693 PROT TOT 6.5 GM/DL 2011 Unknown COMPREHENSIVE METABOLIC 24367 Glucose 139 MG/DL 2011 Unknown COMPREHENSIVE METABOLIC 67298 BICARB 29 MMOL/L 2011 Unknown COMPREHENSIVE METABOLIC 11956 ANION GAP 11 MEQ/L 2011 Unknown GFR CALC 2399268 GFR AA >60 ML/MIN 05/06/2012 Unknown GFR CALC 9675950 GFR NON-AA 54.0L ML/MIN 05/06/2012 Unkno wn GLYCOSYLATED HEMOGLOBIN TEST 11038 A1C HPLC 77079-9 6.6 % 1 09/30/2010 Unknown FREE T4 13163 FREE T4 1.00 NG/DL 07/26/2011 Unknown LIPID GROUP 16420 HDL TEST 40 MG/DL 07/26/2011 Unknown LIPID GROUP 17503 TRIG 136 MG/DL 07/26/2011 Unknown LIPID GROUP 78688 TEST LDL 126 MG/DL 07/26/2011 Unknown LIPID GROUP 00466 CHOL 193 MG/DL 07/26/2011 Unknown LIPID GROUP 39968 RCHOL/HDL 4.83 RATIO 07/26/2011 Unknow n COMPREHENSIVE METABOLIC 35452 AST 15 U/L 2010 Unknown COMPREHENSIVE METABOLIC 57547 ALT 13 IU/L 2010 Unknown COMPREHENSIVE METABOLIC 48152 BUN 17 MG/DL 2010 Unknown COMPREHENSIVE METABOLIC 56130 ALBUMIN 4.4 GM/DL 2010 Unknown COMPREHENSIVE METABOLIC 82028 CHLORIDE 102 MMOL/L 07/26 Unknown COMPREHENSIVE METABOLIC 21639 BILI TOT 0.5 MG/DL 2010 Unknown COMPREHENSIVE METABOLIC 37626 ALK PHOS 54 U/L 2010 Unknown COMPREHENSIVE METABOLIC 46988 SODIUM 138 MMOL/L 07/26 Unknown COMPREHENSIVE METABOLIC 60831 CREATININE 0.95 MG/DL 10/2010 Unknown COMPREHENSIVE METABOLIC 54291 CALCIUM 9.3 MG/DL 2010 Unknown COMPREHENSIVE METABOLIC 06373 POTASSIUM 4.3 MMOL/L 07/26 Unknown COMPREHENSIVE METABOLIC 57191 PROT TOT 6.7 GM/DL 2010 Unknown COMPREHENSIVE METABOLIC 55677 Glucose 116 MG/DL 2010 Unknown COMPREHENSIVE METABOLIC 99527 BICARB 28 MMOL/L 2010 Unknown COMPREHENSIVE METABOLIC 48408 ANION GAP 8 MEQ/L 2010 Unknown PSA EQUIMOLAR JONATAN 14547 PSA EQ 1.01 NG/ML 1 Unknown COMPLETE BLOOD COUNT 10207 WBC 6.4 10e9/L 07/26/20 11 Unknown COMPLETE BLOOD COUNT 05823 RBC 4.43 10e12/L 2010 Unknown COMPLETE BLOOD COUNT 67984 HGB 13.2 g/dL 1 Unknown COMPLETE BLOOD COUNT 94184 HCT DET 39.3 % 1 Unknown COMPLETE BLOOD COUNT 57913 MCV 88.7 fL 1 Unknown COMPLETE BLOOD COUNT 06482 MCH 29.8 pg 1 Unknown COMPLETE BLOOD COUNT 45056 MCHC 33.6 g/dL 1 Unknown COMPLETE BLOOD COUNT 54122 PLT 226 10e9/L 07/26/20 11 Unknown COMPLETE BLOOD COUNT 39608 MPV 9.9 fL 1 Unknown COMPLETE BLOOD COUNT 71660 SUSIE % 65.4 % 1 Unknown COMPLETE BLOOD COUNT 61963 LY % 19.7 % 1 Unknown COMPLETE BLOOD COUNT 56282 MON % 10.8 % 1 Unknown COMPLETE BLOOD COUNT 15007 EOS % 3.6 % 1 Unknown COMPLETE BLOOD COUNT 79924 BASO % 0.5 % 1 Unknown COMPLETE BLOOD COUNT 84734 RDW 13.2 % 1 Unknown COMPLETE BLOOD COUNT 74405 ABS SUSIE 4.19 10e9/L 011 Unknown COMPLETE BLOOD COUNT 82117 ABS LYMPH 1.26 10e9/L 011 Unknown COMPLETE BLOOD COUNT 83380 ABS MONO 0.69 10e9/L 011 Unknown COMPLETE BLOOD COUNT 73441 ABS EOS 0.23 10e9/L 011 Unknown COMPLETE BLOOD COUNT 11057 ABS BASO 0.03 10e9/L 011 Unknown COMPLETE BLOOD COUNT 58325 RDW-SD 41.7 fL 1 Unknown THYROID STIMULATING HORMONE 52584 TSH 1.345 uIU/ML 07/26/2011 Unknown GFR CALC 0755342 GFR AA >60 ML/MIN 07/26/2011 Unknown GFR CALC 8822503 GFR NON-AA >60 ML/MIN 07/26/2011 Unknown BRAIN NATRIURETIC PEPTIDE(BNP) 14075 BRAIN PEP 23 pg/mL 01/19/2011 Unknown CANCEL 9475738 CANCEL FOOTNOTE 01/18/2011 Unknown TESTOSTERONE TOTAL 45424 TESTOS TO 138 NG/DL 12/19/2010 Unknown COMPLETE BLOOD COUNT 54658 WBC 8.4 10e9/L 12/08/19 11 Unknown COMPLETE BLOOD COUNT 87586 RBC 4.40 10e12/L 2010 Unknown COMPLETE BLOOD COUNT 91646 HGB 13.3 g/dL 1 Unknown COMPLETE BLOOD COUNT 23988 HCT DET 39.8 % 1 Unknown COMPLETE BLOOD COUNT 83931 MCV 90.5 fL 1 Unknown COMPLETE BLOOD COUNT 55220 MCH 30.2 pg 1 Unknown COMPLETE BLOOD COUNT 86474 MCHC 33.4 g/dL 1 Unknown COMPLETE BLOOD COUNT 53383 PLT 201 10e9/L 12/08/19 11 Unknown COMPLETE BLOOD COUNT 43320 MPV 10.6 fL 1 Unknown COMPLETE BLOOD COUNT 92140 SUSIE % 72.5 % 1 Unknown COMPLETE BLOOD COUNT 56010 LY % 14.8 % 1 Unknown COMPLETE BLOOD COUNT 34104 MON % 10.6 % 1 Unknown COMPLETE BLOOD COUNT 42734 EOS % 1.7 % 1 Unknown COMPLETE BLOOD COUNT 85522 BASO % 0.4 % 1 Unknown COMPLETE BLOOD COUNT 67818 RDW 13.7 % 1 Unknown COMPLETE BLOOD COUNT 41745 ABS SUSIE 6.09 10e9/L 011 Unknown COMPLETE BLOOD COUNT 99947 ABS LYMPH 1.24 10e9/L 011 Unknown COMPLETE BLOOD COUNT 90174 ABS MONO 0.89 10e9/L 011 Unknown COMPLETE BLOOD COUNT 29572 ABS EOS 0.14 10e9/L 011 Unknown COMPLETE BLOOD COUNT 75429 ABS BASO 0.03 10e9/L 011 Unknown COMPLETE BLOOD COUNT 34397 RDW-SD 44.0 fL 1 Unknown LIPID GROUP 46763 HDL TEST 40 MG/DL 12/07/2010 Unknown LIPID GROUP 58545 TRIG 383 MG/DL 12/07/2010 Unknown LIPID GROUP 24387 TEST LDL 82 MG/DL 12/07/2010 Unknown LIPID GROUP 18213 CHOL 199 MG/DL 12/07/2010 Unknown LIPID GROUP 52751 RCHOL/HDL 4.98 RATIO 12/07/2010 Unknow n GFR CALC 6405193 GFR AA >60 ML/MIN 12/07/2010 Unknown GFR CALC 3553951 GFR NON-AA >60 ML/MIN 12/07/2010 Unknown COMPREHENSIVE METABOLIC 74684 AST 29 U/L 2010 Unknown COMPREHENSIVE METABOLIC 94024 ALT 39 IU/L 2010 Unknown COMPREHENSIVE METABOLIC 44680 BUN 17 MG/DL 2010 Unknown COMPREHENSIVE METABOLIC 05460 ALBUMIN 4.9 GM/DL 2010 Unknown COMPREHENSIVE METABOLIC 24735 CHLORIDE 100 MMOL/L 12/07 Unknown COMPREHENSIVE METABOLIC 30045 BILI TOT 0.3 MG/DL 2010 Unknown COMPREHENSIVE METABOLIC 87856 ALK PHOS 53 U/L 2010 Unknown COMPREHENSIVE METABOLIC 17969 SODIUM 137 MMOL/L 12/07 Unknown COMPREHENSIVE METABOLIC 22485 CREATININE 0.98 MG/DL 11/22 Unknown COMPREHENSIVE METABOLIC 71871 CALCIUM 9.5 MG/DL 2010 Unknown COMPREHENSIVE METABOLIC 91434 POTASSIUM 4.3 MMOL/L 12/07 Unknown COMPREHENSIVE METABOLIC 91680 PROT TOT 6.6 GM/DL 2010 Unknown COMPREHENSIVE METABOLIC 83646 Glucose 176 MG/DL 2010 Unknown COMPREHENSIVE METABOLIC 23314 BICARB 28 MMOL/L 2010 Unknown COMPREHENSIVE METABOLIC 10120 ANION GAP 9 MEQ/L 2010 Unknown PSA EQUIMOLAR JONATAN 18230 PSA EQ 0.65 NG/ML 1 Unknown HEMOGLOBIN A1C (GLYCOSYLATED) 06529 A1C HPLC 01828-7 6.9 % 12/07/2010 Unknown Procedures Procedure Codes Date THER/PROPH/DIAG INJ SC/IM CPT-4: 73639 12/25/2019 METHYLPREDNISOLONE INJECTION CPT-4: J2930 12/25/2019 FLU VACC PRSV FREE INC ANTIG 65 AND OLDER CPT-4: 45788 08/07/2019 FLU VACC PRSV FREE INC ANTIG 65 AND OLDER CPT-4: 12216 08/07/2019 ADMIN INFLUENZA VIRUS VAC CPT-4: G0008 08/07/2019 THER/PROPH/DIAG INJ SC/IM CPT-4: 93615 07/14/2019 METHYLPREDNISOLONE INJECTION CPT-4: J2930 07/14/2019 ROUTINE VENIPUNCTURE CPT-4: 77387 06/17/2019 ASSAY THYROID STIM HORMONE CPT-4: 47430 06/17/2019 COMPREHEN METABOLIC PANEL CPT-4: 60585 06/17/2019 COMPLETE CBC W/AUTO DIFF WBC CPT-4: 80955 06/17/2019 ASSAY OF IRON CPT-4: 98409 06/17/2019 VITAMIN B-12 CPT-4: 20656 06/17/2019 RBC SED RATE AUTOMATED CPT-4: 33987 06/17/2019 THER/PROPH/DIAG INJ SC/IM CPT-4: 33121 06/10/2019 THER/PROPH/DIAG INJ SC/IM CPT-4: 20609 06/02/2019 THER/PROPH/DIAG INJ SC/IM CPT-4: 55460 05/27/2019 THER/PROPH/DIAG INJ SC/IM CPT-4: 27377 05/12/2019 ROUTINE VENIPUNCTURE CPT-4: 36374 05/08/2019 COMPREHEN METABOLIC PANEL CPT-4: 04217 05/08/2019 COMPLETE CBC W/AUTO DIFF WBC CPT-4: 97174 05/08/2019 A1C HPLC CPT-4: 39188 05/08/2019 VITAMIN D TOTAL (25 HYDROXY) CPT-4: 05795 05/08/2019 ASSAY OF IRON CPT-4: 99597 05/08/2019 ASSAY OF FERRITIN CPT-4: 01098 05/08/2019 VITAMIN B-12 CPT-4: 93896 05/08/2019 THER/PROPH/DIAG INJ SC/IM CPT-4: 77551 03/21/2019 METHYLPREDNISOLONE INJECTION CPT-4: J2930 03/21/2019 THER/PROPH/DIAG INJ SC/IM CPT-4: 65152 03/13/2019 METHYLPREDNISOLONE INJECTION CPT-4: J2930 03/13/2019 THER/PROPH/DIAG INJ SC/IM CPT-4: 59623 12/25/2018 METHYLPREDNISOLONE INJECTION CPT-4: J2930 12/25/2018 ROUTINE VENIPUNCTURE CPT-4: 18799 12/09/2018 ASSAY OF FREE THYROXINE CPT-4: 18350 12/09/2018 ASSAY THYROID STIM HORMONE CPT-4: 82547 12/09/2018 COMPREHEN METABOLIC PANEL CPT-4: 11951 12/09/2018 COMPLETE CBC W/AUTO DIFF WBC CPT-4: 70875 12/09/2018 LIPID PANEL CPT-4: 86579 12/09/2018 A1C HPLC CPT-4: 64879 12/09/2018 PRESCRIP TRANSMIT VIA ERX SY CPT-4: G8553 08/21/2018 PRESCRIP TRANSMIT VIA ERX SY CPT-4: G8553 08/07/2018 THER/PROPH/DIAG INJ SC/IM CPT-4: 44782 05/23/2018 METHYLPREDNISOLONE INJECTION CPT-4: J2930 05/23/2018 PRESCRIP TRANSMIT VIA ERX SY CPT-4: G8553 05/02/2018 THER/PROPH/DIAG INJ SC/IM CPT-4: 14500 04/29/2018 METHYLPREDNISOLONE INJECTION CPT-4: J2930 04/29/2018 DEXAMETHASONE SODIUM PHOS CPT-4: J1100 04/22/2018 THER/PROPH/DIAG INJ SC/IM CPT-4: 51654 04/22/2018 TRIAMCINOLONE ACET INJ NOS CPT-4: J3301 04/22/2018 PRESCRIP TRANSMIT VIA ERX SY CPT-4: G8553 04/22/2018 PRESCRIP TRANSMIT VIA ERX SY CPT-4: G8553 01/23/2018 URINALYSIS NONAUTO W/O SCOPE CPT-4: 77216 01/02/2018 URINE CULTURE/ COLONY COUNT CPT-4: 11652 01/02/2018 PRESCRIP TRANSMIT VIA ERX SY CPT-4: G8553 01/02/2018 PRESCRIP TRANSMIT VIA ERX SY CPT-4: G8553 12/28/2017 PRESCRIP TRANSMIT VIA ERX SY CPT-4: G8553 12/21/2017 CEFTRIAXONE SODIUM INJECTION CPT-4: J0696 12/17/2017 THER/PROPH/DIAG INJ SC/IM CPT-4: 24912 12/17/2017 THER/PROPH/DIAG INJ SC/IM CPT-4: 19059 12/17/2017 TRIAMCINOLONE ACET INJ NOS CPT-4: J3301 12/17/2017 PRESCRIP TRANSMIT VIA ERX SY CPT-4: G8553 12/17/2017 DRAIN/INJECT JOINT/BURSA CPT-4: 16639 12/11/2017 TRIAMCINOLONE ACET INJ NOS CPT-4: J3301 12/11/2017 DEXAMETHASONE SODIUM PHOS CPT-4: J1100 12/11/2017 DESTRUCT PREMALG LESION (Cryosurgery) CPT-4: 16157 PRESCRIP TRANSMIT VIA ERX SY CPT-4: G8553 10/17/2017 DEXAMETHASONE SODIUM PHOS CPT-4: J1100 08/02/2017 THER/PROPH/DIAG INJ SC/IM CPT-4: 55164 08/02/2017 TRIAMCINOLONE ACET INJ NOS CPT-4: J3301 08/02/2017 PRESCRIP TRANSMIT VIA ERX SY CPT-4: G8553 08/02/2017 PNEUMOCOCCAL VACC 23 OLIVIA IM CPT-4: 82983 07/24/2017 ADMIN PNEUMOCOCCAL VACCINE CPT-4: G0009 07/24/2017 ALBUTEROL NON-COMP UNIT CPT-4: J7613 07/02/2017 AIRWAY INHALATION TREATMENT CPT-4: 33381 07/02/2017 THER/PROPH/DIAG INJ SC/IM CPT-4: 73019 07/02/2017 METHYLPREDNISOLONE INJECTION CPT-4: J2930 07/02/2017 PRESCRIP TRANSMIT VIA ERX SY CPT-4: G8553 05/29/2017 ROUTINE VENIPUNCTURE CPT-4: 96761 04/17/2017 ASSAY OF IRON CPT-4: 83733 04/17/2017 VITAMIN B-12 CPT-4: 83995 04/17/2017 COMPREHEN METABOLIC PANEL CPT-4: 49545 04/17/2017 COMPLETE CBC W/AUTO DIFF WBC CPT-4: 99924 04/17/2017 ASSAY OF FERRITIN CPT-4: 96417 04/17/2017 ASSAY THYROID STIM HORMONE CPT-4: 20858 04/17/2017 A1C HPLC CPT-4: 08766 04/17/2017 DRAIN/INJECT JOINT/BURSA CPT-4: 94358 02/01/2017 TRIAMCINOLONE ACET INJ NOS CPT-4: J3301 02/01/2017 DEXAMETHASONE SODIUM PHOS CPT-4: J1100 02/01/2017 ROUTINE VENIPUNCTURE CPT-4: 44493 12/27/2016 COMPLETE CBC W/AUTO DIFF WBC CPT-4: 14131 12/27/2016 ROUTINE VENIPUNCTURE CPT-4: 44137 12/21/2016 COMPLETE CBC W/AUTO DIFF WBC CPT-4: 01087 12/21/2016 ROUTINE VENIPUNCTURE CPT-4: 44425 12/12/2016 COMPLETE CBC W/AUTO DIFF WBC CPT-4: 97855 12/12/2016 PRESCRIP TRANSMIT VIA ERX SY CPT-4: G8553 10/31/2016 PRESCRIP TRANSMIT VIA ERX SY CPT-4: G8553 10/03/2016 PRESCRIP TRANSMIT VIA ERX SY CPT-4: G8553 09/04/2016 DESTRUCT PREMALG LESION (Cryosurgery) CPT-4: 90662 DESTRUCT PREMALG LES 2-14 CPT-4: 16460 08/22/2016 PRESCRIP TRANSMIT VIA ERX SY CPT-4: G8553 08/10/2016 PRESCRIP TRANSMIT VIA ERX SY CPT-4: G8553 07/06/2016 FLU VACC PRSV FREE INC ANTIG 65 AND OLDER CPT-4: 37189 06/13/2016 PNEUMOCOCCAL VACC 13 OLIVIA IM CPT-4: 21570 06/13/2016 ADMIN INFLUENZA VIRUS VAC CPT-4: G0008 06/13/2016 ADMIN PNEUMOCOCCAL VACCINE CPT-4: G0009 06/13/2016 CERUM REMOVAL CPT-4: 29042 04/05/2016 PRESCRIP TRANSMIT VIA ERX SY CPT-4: G8553 04/03/2016 ROUTINE VENIPUNCTURE CPT-4: 82257 03/06/2016 ASSAY OF FREE THYROXINE CPT-4: 42826 03/06/2016 ASSAY THYROID STIM HORMONE CPT-4: 56284 03/06/2016 COMPREHEN METABOLIC PANEL CPT-4: 78572 03/06/2016 COMPLETE CBC W/AUTO DIFF WBC CPT-4: 52173 03/06/2016 LIPID PANEL CPT-4: 48208 03/06/2016 ASSAY OF PSA TOTAL CPT-4: 75833 03/06/2016 TESTOSTERONE TOTAL - MALE CPT-4: 22412 03/06/2016 A1C HPLC CPT-4: 09229 03/06/2016 ASSAY OF IRON CPT-4: 37900 03/06/2016 VITAMIN B-12 CPT-4: 46462 03/06/2016 INJ TENDON SHEATH/LIGAMENT CPT-4: 65828 02/17/2016 TRIAMCINOLONE ACET INJ NOS CPT-4: J3301 02/17/2016 DEXAMETHASONE SODIUM PHOS CPT-4: J1100 02/17/2016 PRESCRIP TRANSMIT VIA ERX SY CPT-4: G8553 01/31/2016 PRESCRIP TRANSMIT VIA ERX SY CPT-4: G8553 12/30/2015 PRESCRIP TRANSMIT VIA ERX SY CPT-4: G8553 12/06/2015 PRESCRIP TRANSMIT VIA ERX SY CPT-4: G8553 11/15/2015 PPPS, subseq visit CPT-4: G0439 10/05/2015 MICROALBUMIN QUANTITATIVE CPT-4: 41588 10/05/2015 PROTEIN/CREAT URINE WITH RATIO CPT-4: 57573|49599 6 ROUTINE VENIPUNCTURE CPT-4: 95491 07/01/2015 ASSAY OF FREE THYROXINE CPT-4: 49989 07/01/2015 ASSAY THYROID STIM HORMONE CPT-4: 65760 07/01/2015 COMPLETE CBC W/AUTO DIFF WBC CPT-4: 64839 07/01/2015 LIPID PANEL CPT-4: 94209 07/01/2015 ASSAY OF PSA TOTAL CPT-4: 01929 07/01/2015 AEROBIC WOUND CULTURE & STN CPT-4: 36019 06/28/2015 PRESCRIP TRANSMIT VIA ERX SY CPT-4: G8553 06/28/2015 AEROBIC WOUND CULTURE & STN CPT-4: 86500 06/03/2015 PRESCRIP TRANSMIT VIA ERX SY CPT-4: G8553 06/03/2015 ROUTINE VENIPUNCTURE CPT-4: 31253 06/01/2015 COMPREHEN METABOLIC PANEL CPT-4: 24520 06/01/2015 A1C HPLC CPT-4: 84886 06/01/2015 COMPREHEN METABOLIC PANEL CPT-4: 96584 02/25/2015 A1C HPLC CPT-4: 04122 02/25/2015 DESTRUCT PREMALG LESION (Cryosurgery) CPT-4: 27080 PROTEIN/CREAT URINE WITH RATIO CPT-4: 76098|54219 5 MICROALBUMIN QUANTITATIVE CPT-4: 18228 10/27/2014 INFLUENZA ASSAY W/OPTIC CPT-4: 09402 10/21/2014 PRESCRIP TRANSMIT VIA ERX SY CPT-4: G8553 10/06/2014 PRESCRIP TRANSMIT VIA ERX SY CPT-4: G8553 09/21/2014 PRESCRIP TRANSMIT VIA ERX SY CPT-4: G8553 09/02/2014 MICROALBUMIN QUANTITATIVE CPT-4: 12595 08/27/2014 PROTEIN/CREAT URINE WITH RATIO CPT-4: 55141|04694 4 PPPS, subseq visit CPT-4: G0439 08/10/2014 ROUTINE VENIPUNCTURE CPT-4: 75098 08/05/2014 ASSAY OF FREE THYROXINE CPT-4: 05240 08/05/2014 ASSAY THYROID STIM HORMONE CPT-4: 07359 08/05/2014 COMPREHEN METABOLIC PANEL CPT-4: 25111 08/05/2014 COMPLETE CBC W/AUTO DIFF WBC CPT-4: 70224 08/05/2014 LIPID PANEL CPT-4: 85039 08/05/2014 A1C HPLC CPT-4: 22999 08/05/2014 FLUZONE, 5ML (Medicare) CPT-4: Q2038 08/05/2014 ADMIN INFLUENZA VIRUS VAC CPT-4: G0008 08/05/2014 METHYLPREDNISOLONE 40 MG INJ CPT-4: J1030 12/16/2013 TRIAMCINOLONE ACET INJ NOS CPT-4: J3301 12/16/2013 DRAIN/INJECT JOINT/BURSA CPT-4: 87816 12/16/2013 PRESCRIP TRANSMIT VIA ERX SY CPT-4: G8553 10/09/2013 THER/PROPH/DIAG INJ SC/IM CPT-4: 19605 09/18/2013 METHYLPREDNISOLONE 40 MG INJ CPT-4: J1030 09/18/2013 TRIAMCINOLONE ACET INJ NOS CPT-4: J3301 09/18/2013 PRESCRIP TRANSMIT VIA ERX SY CPT-4: G8553 09/18/2013 PRESCRIP TRANSMIT VIA ERX SY CPT-4: G8553 08/13/2013 ROUTINE VENIPUNCTURE CPT-4: 73069 06/25/2013 ASSAY OF FREE THYROXINE CPT-4: 30597 06/25/2013 ASSAY THYROID STIM HORMONE CPT-4: 37837 06/25/2013 COMPREHEN METABOLIC PANEL CPT-4: 72010 06/25/2013 COMPLETE CBC W/AUTO DIFF WBC CPT-4: 11674 06/25/2013 LIPID PANEL CPT-4: 86308 06/25/2013 A1C GLYCOSYLATED HEMOGLOBIN TEST CPT-4: 50276 013 ROUTINE VENIPUNCTURE CPT-4: 72908 04/09/2013 COMPLETE CBC W/AUTO DIFF WBC CPT-4: 73051 04/09/2013 MYCOPLASMA ANTIBODY, IFA CPT-4: 81471Y1 04/09/2013 ROUTINE VENIPUNCTURE CPT-4: 15063 02/11/2013 ASSAY OF FREE THYROXINE CPT-4: 00974 02/11/2013 ASSAY THYROID STIM HORMONE CPT-4: 28056 02/11/2013 COMPREHEN METABOLIC PANEL CPT-4: 01159 02/11/2013 COMPLETE CBC W/AUTO DIFF WBC CPT-4: 14991 02/11/2013 VITAMIN B 12 FOLIC ACID CPT-4: 71061|85786 02/11/2013 C-REACTIVE PROTEIN CPT-4: 05336 02/11/2013 A1C GLYCOSYLATED HEMOGLOBIN TEST CPT-4: 92359 013 ASSAY OF BLOOD/URIC ACID CPT-4: 73194 02/11/2013 CEFTRIAXONE SODIUM INJECTION CPT-4: J0696 01/31/2013 THER/PROPH/DIAG INJ SC/IM CPT-4: 81830 01/31/2013 THER/PROPH/DIAG INJ SC/IM CPT-4: 12641 01/31/2013 METHYLPREDNISOLONE 40 MG INJ CPT-4: J1030 01/31/2013 TRIAMCINOLONE ACET INJ NOS CPT-4: J3301 01/31/2013 ROUTINE VENIPUNCTURE CPT-4: 84843 09/19/2012 COMPREHEN METABOLIC PANEL CPT-4: 07434 09/19/2012 LIPID PANEL CPT-4: 58343 09/19/2012 A1C GLYCOSYLATED HEMOGLOBIN TEST CPT-4: 21930 012 PNEUMOCOCCAL VACC 23 OLIVIA IM CPT-4: 47891 07/10/2012 FLUZONE, 5ML (Medicare) CPT-4: Q2038 07/10/2012 ADMIN INFLUENZA VIRUS VAC CPT-4: G0008 07/10/2012 ADMIN PNEUMOCOCCAL VACCINE CPT-4: G0009 07/10/2012 ROUTINE VENIPUNCTURE CPT-4: 12486 05/06/2012 ASSAY OF FREE THYROXINE CPT-4: 49211 05/06/2012 ASSAY THYROID STIM HORMONE CPT-4: 87458 05/06/2012 COMPREHEN METABOLIC PANEL CPT-4: 88404 05/06/2012 COMPLETE CBC W/AUTO DIFF WBC CPT-4: 98502 05/06/2012 LIPID PANEL CPT-4: 85297 05/06/2012 A1C GLYCOSYLATED HEMOGLOBIN TEST CPT-4: 01422 012 IMMUNIZATION ADMIN CPT-4: 07681 02/05/2012 FLUZONE, 5ML (Medicare) CPT-4: Q2038 08/10/2011 ADMIN INFLUENZA VIRUS VAC CPT-4: G0008 08/10/2011 ROUTINE VENIPUNCTURE CPT-4: 42021 07/26/2011 ASSAY OF FREE THYROXINE CPT-4: 82876 07/26/2011 ASSAY THYROID STIM HORMONE CPT-4: 29037 07/26/2011 COMPREHEN METABOLIC PANEL CPT-4: 68757 07/26/2011 COMPLETE CBC W/AUTO DIFF WBC CPT-4: 16823 07/26/2011 LIPID PANEL CPT-4: 33830 07/26/2011 A1C GLYCOSYLATED HEMOGLOBIN TEST CPT-4: 89000 011 ASSAY OF PSA TOTAL CPT-4: 23006 07/26/2011 ROUTINE VENIPUNCTURE CPT-4: 09811 01/19/2011 ASSAY OF NATRIURETIC PEPTIDE CPT-4: 68757 01/19/2011 THER/PROPH/DIAG INJ SC/IM CPT-4: 31876 01/19/2011 CEFTRIAXONE SODIUM INJECTION CPT-4: J0696 01/19/2011 METHYLPREDNISOLONE INJECTION CPT-4: J2930 01/19/2011 THER/PROPH/DIAG INJ SC/IM CPT-4: 94984 01/19/2011 THER/PROPH/DIAG INJ SC/IM CPT-4: 39192 01/18/2011 CEFTRIAXONE SODIUM INJECTION CPT-4: J0696 01/18/2011 METHYLPREDNISOLONE INJECTION CPT-4: J2930 01/18/2011 THER/PROPH/DIAG INJ SC/IM CPT-4: 72378 01/18/2011 THER/PROPH/DIAG INJ SC/IM CPT-4: 17146 12/21/2010 TESTOSTERONE CYPIONAT 100 MG CPT-4: J1070 12/21/2010 ROUTINE VENIPUNCTURE CPT-4: 13036 12/19/2010 TESTOSTERONE TOTAL - MALE CPT-4: 68840 12/19/2010 ROUTINE VENIPUNCTURE CPT-4: 70981 12/07/2010 COMPLETE CBC W/AUTO DIFF WBC CPT-4: 95487 12/07/2010 COMPREHEN METABOLIC PANEL CPT-4: 46094 12/07/2010 LIPID PANEL CPT-4: 08842 12/07/2010 A1C GLYCOSYLATED HEMOGLOBIN TEST CPT-4: 98627 011 ASSAY OF PSA TOTAL CPT-4: 17189 12/07/2010 ROUTINE VENIPUNCTURE CPT-4: 21183 04/05/2010 PRESCRIP TRANSMIT VIA ERX SY CPT-4: G8553 04/05/2010 ROUTINE VENIPUNCTURE CPT-4: 01275 01/13/2010 METHYLPREDNISOLONE INJECTION CPT-4: J2930 12/22/2009 THER/PROPH/DIAG INJ SC/IM CPT-4: 90727 12/22/2009 THER/PROPH/DIAG INJ SC/IM CPT-4: 77656 12/22/2009 CEFTRIAXONE SODIUM INJECTION CPT-4: J0696 12/22/2009 ROUTINE VENIPUNCTURE CPT-4: 38180 12/22/2009 COMPLETE CBC W/AUTO DIFF WBC CPT-4: 87038 12/22/2009 RBC SED RATE, AUTOMATED CPT-4: 45343 12/22/2009 RPR FE/E/EN/L/M 20.1-30.0 CM CPT-4: 95171 12/22/2009 EKG FOR INITIAL PREVENT EXAM CPT-4: G0403 12/22/2009 THER/PROPH/DIAG INJ SC/IM CPT-4: 52938 12/16/2009 KETOROLAC TROMETHAMINE INJ CPT-4: J1885 12/16/2009 [...] 1: 126/68 Code: 8480-6 BMI: 30.2 Code: 11572-4 Heart Rate 1: 92 bpm Height: 6' Respiratory Rate: 22 bpm SpO2: 94% Tempera ture: 36.9 (C) / 98.5 (F) Weight: 223 lbs 08/21/2018 Blood Pressure 1: 160/70 Code: 8480-6 Heart Rate 1: 79 bpm Respiratory Rate: 20 bpm SpO2: 94% Temperature: 36.7 (C) / 98.0 (F) We ight: 226 lbs 8 oz 08/07/2018 Blood Pressure 1: 138/70 Code: 8480-6 BMI: 30.1 Code: 65584-8 Heart Rate 1: 80 bpm Height: 6' Respiratory Rate: 20 bpm SpO2: 94% Tempera ture: 36.9 (C) / 98.5 (F) Weight: 222 lbs 05/23/2018 Blood Pressure 1: 148/66 Code: 8480-6 BMI: 30.0 Code: 37691-3 Heart Rate 1: 96 bpm Height: 6' Respiratory Rate: 22 bpm SpO2: 94% Tempera ture: 37.3 (C) / 99.1 (F) Weight: 221 lbs 05/02/2018 Blood Pressure 1: 146/78 Code: 8480-6 BMI: 29.6 Code: 09055-9 Heart Rate 1: 78 bpm Height: 6' Respiratory Rate: 26 bpm SpO2: 94% Tempera ture: 35.7 (C) / 96.2 (F) Weight: 218 lbs 04/29/2018 Blood Pressure 1: 142/62 Code: 8480-6 BMI: 28.6 Code: 58685-5 Heart Rate 1: 82 bpm Height: 6' Respiratory Rate: 22 bpm SpO2: 98% Tempera ture: 36.4 (C) / 97.6 (F) Weight: 211 lbs 04/22/2018 Blood Pressure 1: 126/64 Code: 8480-6 BMI: 30.0 Code: 19561-9 Heart Rate 1: 96 bpm Height: 6' [...] 1: 144/78 Code: 8480-6 BMI: 30.7 Code: 63234-4 Heart Rate 1: 92 bpm Height: 6' Respiratory Rate: 28 bpm SpO2: 94% Tempera ture: 36.9 (C) / 98.4 (F) Weight: 226 lbs 12/28/2017 Blood Pressure 1: 136/80 Code: 8480-6 Heart Rate 1: 92 bpm Respiratory Rate: 28 bpm SpO2: 94% Temperature: 36.7 (C) / 98.1 (F) 12/21/2017 Blood Pressure 1: 146/84 Code: 8480-6 BMI: 31.1 Code: 09879-9 Heart Rate 1: 84 bpm Height: 6' [...] 1: 142/64 Code: 8480-6 BMI: 31.3 Code: 99746-1 Heart Rate 1: 98 bpm Height: 6' Respiratory Rate: 24 bpm SpO2: 94% Tempera ture: 36.4 (C) / 97.6 (F) Weight: 231 lbs 10/17/2017 Blood Pressure 1: 140/68 Code: 8480-6 BMI: 31.7 Code: 66308-7 Heart Rate 1: 88 bpm Height: 6' Respiratory Rate: 20 bpm SpO2: 94% Tempera ture: 36.8 (C) / 98.3 (F) Weight: 234 lbs 08/02/2017 Blood Pressure 1: 142/80 Code: 8480-6 BMI: 31.1 Code: 02976-7 Heart Rate 1: 86 bpm Height: 6' Respiratory Rate: 20 bpm SpO2: 90% Tempera ture: 35.9 (C) / 96.7 (F) Weight: 229 lbs 07/02/2017 Blood Pressure 1: 146/64 Code: 8480-6 BMI: 29.6 Code: 06355-8 Heart Rate 1: 96 bpm Height: 6' Respiratory Rate: 20 bpm Temperature: 36 .4 (C) / 97.6 (F) Weight: 218 lbs 05/29/2017 Blood Pressure 1: 152/68 Code: 8480-6 BMI: 31.5 Code: 07984-6 Heart Rate 1: 100 bpm Height: 6' Respiratory Rate: 20 bpm SpO2: 92% Tempera ture: 36.9 (C) / 98.4 (F) Weight: 232 lbs 02/01/2017 Blood Pressure 1: 146/64 Code: 8480-6 BMI: 30.7 Code: 49523-2 Heart Rate 1: 76 bpm Height: 6' Respiratory Rate: 20 bpm SpO2: 95% Tempera ture: 36.8 (C) / 98.2 (F) Weight: 226 lbs 01/29/2017 Blood Pressure 1: 146/78 Code: 8480-6 Heart Rate 1: 84 bpm Respiratory Rate: 20 bpm SpO2: 96% Temperature: 36.1 (C) / 97.0 (F) We ight: 226 lbs 12/21/2016 Blood Pressure 1: 126/60 Code: 8480-6 BMI: 30.8 Code: 41119-7 Heart Rate 1: 88 bpm Height: 6' Respiratory Rate: 22 bpm SpO2: 94% Tempera ture: 36.7 (C) / 98.0 (F) Weight: 227 lbs 12/14/2016 Blood Pressure 1: 126/70 Code: 8480-6 BMI: 29.8 Code: 49168-0 Heart Rate 1: 92 bpm Height: 6' Respiratory Rate: 22 bpm SpO2: 93% Tempera ture: 36.8 (C) / 98.2 (F) Weight: 220 lbs 11/14/2016 Blood Pressure 1: 128/62 Code: 8480-6 Heart Rate 1: 100 bpm Respiratory Rate: 20 bpm SpO2: 96% Temperature: 36.6 (C) / 97.8 (F) We ight: 220 lbs 10/31/2016 Blood Pressure 1: 142/60 Code: 8480-6 BMI: 30.1 Code: 56291-4 Heart Rate 1: 112 bpm Height: 6' Respiratory Rate: 24 bpm SpO2: 93% Tempera ture: 37.1 (C) / 98.7 (F) Weight: 222 lbs 10/03/2016 Blood Pressure 1: 136/78 Code: 8480-6 Heart Rate 1: 106 bpm Respiratory Rate: 24 bpm SpO2: 93% Temperature: 36.6 (C) / 97.8 (F) We ight: 221 lbs 09/04/2016 Blood Pressure 1: 112/44 Code: 8480-6 BMI: 30.1 Code: 81064-5 Heart Rate 1: 90 bpm Height: 6' Respiratory Rate: 20 bpm SpO2: 93% Tempera ture: 36.6 (C) / 97.9 (F) Weight: 222 lbs 08/22/2016 Blood Pressure 1: 142/68 Code: 8480-6 BMI: 30.4 Code: 65839-7 Heart Rate 1: 100 bpm Height: 6' Respiratory Rate: 24 bpm SpO2: 93% Tempera ture: 36.7 (C) / 98.1 (F) Weight: 224 lbs 08/10/2016 Blood Pressure 1: 134/60 Code: 8480-6 BMI: 30.2 Code: 79387-6 Heart Rate 1: 76 bpm Height: 6' [...] 1: 122/72 Code: 8480-6 BMI: 30.7 Code: 11859-6 Heart Rate 1: 96 bpm Height: 6' Respiratory Rate: 22 bpm SpO2: 96% Tempera ture: 35.9 (C) / 96.7 (F) Weight: 226 lbs 04/03/2016 Blood Pressure 1: 146/64 Code: 8480-6 BMI: 30.8 Code: 33308-7 Heart Rate 1: 76 bpm Height: 6' Respiratory Rate: 20 bpm Temperature: 36 .8 (C) / 98.2 (F) Weight: 227 lbs 03/02/2016 Blood Pressure 1: 148/60 Code: 8480-6 BMI: 31.1 Code: 38863-8 Heart Rate 1: 80 bpm Height: 6' Respiratory Rate: 22 bpm SpO2: 94% Tempera ture: 36.6 (C) / 97.8 (F) Weight: 229 lbs 02/17/2016 Blood Pressure 1: 132/60 Code: 8480-6 BMI: 31.3 Code: 66054-7 Heart Rate 1: 80 bpm Height: 6' Respiratory Rate: 20 bpm Temperature: 36 .9 (C) / 98.4 (F) Weight: 231 lbs 02/14/2016 Blood Pressure 1: 126/70 Code: 8480-6 BMI: 31.3 Code: 19669-1 Heart Rate 1: 80 bpm Height: 6' Respiratory Rate: 24 bpm SpO2: 95% Tempera ture: 36.9 (C) / 98.5 (F) Weight: 231 lbs 01/31/2016 Blood Pressure 1: 136/60 Code: 8480-6 Heart Rate 1: 76 bpm Respiratory Rate: 22 bpm Temperature: 37.0 (C) / 98.6 (F) Weight: 230 lbs 12/30/2015 Blood Pressure 1: 128/58 Code: 8480-6 BMI: 31.2 Code: 42376-7 Heart Rate 1: 80 bpm Height: 6' Respiratory Rate: 20 bpm Temperature: 36 .8 (C) / 98.2 (F) Weight: 230 lbs 12/16/2015 Blood Pressure 1: 122/60 Code: 8480-6 BMI: 32.0 Code: 52656-3 Heart Rate 1: 84 bpm Height: 6' Respiratory Rate: 24 bpm Temperature: 37 .1 (C) / 98.7 (F) Weight: 236 lbs 12/06/2015 Blood Pressure 1: 162/74 Code: 8480-6 BMI: 32.5 Code: 05713-8 Heart Rate 1: 90 bpm Height: 6' Respiratory Rate: 20 bpm SpO2: 96% Tempera ture: 36.4 (C) / 97.6 (F) Weight: 240 lbs 11/15/2015 Blood Pressure 1: 166/80 Code: 8480-6 BMI: 32.4 Code: 60997-6 Heart Rate 1: 92 bpm Height: 6' Respiratory Rate: 28 bpm Temperature: 36 .5 (C) / 97.7 (F) Weight: 239 lbs 10/05/2015 Blood Pressure 1: 146/76 Code: 8480-6 BMI: 32.4 Code: 20452-8 Heart Rate 1: 88 bpm Height: 6' Respiratory Rate: 28 bpm Temperature: 37 .1 (C) / 98.7 (F) Weight: 239 lbs 07/22/2015 Blood Pressure 1: 144/68 Code: 8480-6 BMI: 31.9 Code: 11072-9 Heart Rate 1: 88 bpm Height: 6' [...] 1: 142/64 Code: 8480-6 BMI: 32.1 Code: 83341-6 Heart Rate 1: 80 bpm Height: 6' Respiratory Rate: 18 bpm Temperature: 36 .4 (C) / 97.6 (F) Weight: 237 lbs 06/07/2015 Blood Pressure 1: 164/58 Code: 8480-6 BMI: 32.1 Code: 36742-3 Heart Rate 1: 88 bpm Height: 6' Respiratory Rate: 20 bpm Temperature: 36 .6 (C) / 97.9 (F) Weight: 237 lbs 06/03/2015 Blood Pressure 1: 152/64 Code: 8480-6 BMI: 32.1 Code: 87484-1 Heart Rate 1: 96 bpm Height: 6' Respiratory Rate: 20 bpm Temperature: 37 .4 (C) / 99.3 (F) Weight: 237 lbs 06/01/2015 Blood Pressure 1: 136/70 Code: 8480-6 BMI: 31.7 Code: 10080-6 Heart Rate 1: 72 bpm Height: 6' Respiratory Rate: 22 bpm SpO2: 94% Tempera ture: 36.6 (C) / 97.9 (F) Weight: 234 lbs 02/25/2015 Blood Pressure 1: 146/80 Code: 8480-6 BMI: 32.4 Code: 52296-2 Heart Rate 1: 84 bpm Height: 6' Respiratory Rate: 28 bpm Temperature: 36 .7 (C) / 98.0 (F) Weight: 239 lbs 10/27/2014 Blood Pressure 1: 168/70 Code: 8480-6 BMI: 32.0 Code: 35419-4 Heart Rate 1: 80 bpm Height: 6' Respiratory Rate: 30 bpm SpO2: 98% Tempera ture: 36.4 (C) / 97.6 (F) Weight: 236 lbs 10/21/2014 Blood Pressure 1: 152/58 Code: 8480-6 BMI: 32.1 Code: 67237-9 Heart Rate 1: 78 bpm Height: 6' Respiratory Rate: 20 bpm Temperature: 37 .8 (C) / 100.1 (F) Weight: 237 lbs 10/06/2014 Blood Pressure 1: 132/64 Code: 8480-6 BMI: 32.5 Code: 04240-0 Heart Rate 1: 88 bpm Height: 6' Respiratory Rate: 32 bpm SpO2: 94% Tempera ture: 36.8 (C) / 98.2 (F) Weight: 240 lbs 09/21/2014 Blood Pressure 1: 134/68 Code: 8480-6 BMI: 32.4 Code: 12042-2 Heart Rate 1: 96 bpm Height: 6' Respiratory Rate: 30 bpm Temperature: 36 .7 (C) / 98.1 (F) Weight: 239 lbs 09/08/2014 Blood Pressure 1: 128/74 Code: 8480-6 BMI: 32.4 Code: 10697-2 Heart Rate 1: 82 bpm Height: 6' Respiratory Rate: 28 bpm SpO2: 93% Tempera ture: 36.6 (C) / 97.8 (F) Weight: 239 lbs 09/02/2014 Blood Pressure 1: 164/78 Code: 8480-6 Heart Rate 1: 86 bpm Respiratory Rate: 22 bpm SpO2: 96% Temperature: 36.1 (C) / 97.0 (F) We ight: 239 lbs 08/10/2014 Blood Pressure 1: 152/60 Code: 8480-6 BMI: 32.8 Code: 96491-2 Heart Rate 1: 80 bpm Height: 6' [...] 1: 146/80 Code: 8480-6 BMI: 33.9 Code: 67546-2 Heart Rate 1: 80 bpm Height: 6' [...] 1: 148/78 Code: 8480-6 BMI: 30.5 Code: 14357-2 Heart Rate 1: 84 bpm Height: 6' Respiratory Rate: 28 bpm SpO2: 97% Tempera ture: 36.4 (C) / 97.5 (F) Weight: 225 lbs 08/06/2013 Blood Pressure 1: 158/70 Code: 8480-6 Heart Rate 1: 110 bpm Respiratory Rate: 22 bpm SpO2: 88% Temperature: 39.7 (C) / 103.4 (F) W eight: 07/16/2013 Blood Pressure 1: 148/82 Code: 8480-6 BMI: 31.9 Code: 76194-2 Heart Rate 1: 80 bpm Height: 6' Respiratory Rate: 20 bpm Temperature: 36 .6 (C) / 97.9 (F) Weight: 235 lbs 04/09/2013 Blood Pressure 1: 142/78 Code: 8480-6 BMI: 31.5 Code: 84426-8 Heart Rate 1: 88 bpm Height: 6' Respiratory Rate: 32 bpm SpO2: 95% Tempera ture: 37.0 (C) / 98.6 (F) Weight: 232 lbs 02/11/2013 Blood Pressure 1: 146/70 Code: 8480-6 Heart Rate 1: 88 bpm Respiratory Rate: 20 bpm Temperature: 36.8 (C) / 98.3 (F) Weight: 230 lbs 01/31/2013 Blood Pressure 1: 128/70 Code: 8480-6 BMI: 31.6 Code: 74597-4 Heart Rate 1: 84 bpm Height: 6' Respiratory Rate: 24 bpm SpO2: 92% Tempera ture: 36.7 (C) / 98.0 (F) Weight: 233 lbs 01/20/2013 Blood Pressure 1: 148/64 Code: 8480-6 BMI: 31.6 Code: 70098-7 Heart Rate 1: 68 bpm Height: 6' Temperature: 36.1 (C) / 97.0 (F) Weight: 233 lbs 12/19/2012 Blood Pressure 1: 128/68 Code: 8480-6 BMI: 32.0 Code: 21562-6 Heart Rate 1: 64 bpm Height: 6' Temperature: 36.7 (C) / 98.0 (F) Weight: 236 lbs 10/21/2012 Blood Pressure 1: 142/64 Code: 8480-6 BMI: 30.9 Code: 73347-0 Heart Rate 1: 74 bpm Height: 6' Temperature: 36.2 (C) / 97.1 (F) Weight: 228 lbs 09/18/2012 Blood Pressure 1: 126/60 Code: 8480-6 BMI: 31.3 Code: 42573-3 Heart Rate 1: 88 bpm Height: 6' Respiratory Rate: 20 bpm Temperature: 36 .5 (C) / 97.7 (F) Weight: 231 lbs 08/28/2012 Blood Pressure 1: 132/68 Code: 8480-6 BMI: 31.5 Code: 11709-1 Heart Rate 1: 92 bpm Height: 6' Respiratory Rate: 30 bpm SpO2: 94% Tempera ture: 37.1 (C) / 98.7 (F) Weight: 232 lbs 07/10/2012 Blood Pressure 1: 118/70 Code: 8480-6 BMI: 30.5 Code: 91782-0 Heart Rate 1: 72 bpm Height: 6' Respiratory Rate: 24 bpm SpO2: 96% Tempera ture: 36.7 (C) / 98.0 (F) Weight: 225 lbs 05/09/2012 Blood Pressure 1: 124/68 Code: 8480-6 BMI: 29.8 Code: 70014-8 Heart Rate 1: 72 bpm Height: 6' Respiratory Rate: 20 bpm Temperature: 36 .8 (C) / 98.2 (F) Weight: 220 lbs 10/02/2011 Blood Pressure 1: 140/82 Code: 8480-6 BMI: 30.7 Code: 44703-9 Heart Rate 1: 68 bpm Height: 6' Temperature: 36.7 (C) / 98.0 (F) Weight: 226 lbs 08/07/2011 Blood Pressure 1: 122/68 Code: 8480-6 BMI: 30.5 Code: 95282-0 Heart Rate 1: 72 bpm Height: 6' [...] 1: 140/78 Code: 8480-6 BMI: 31.9 Code: 46708-8 Heart Rate 1: 84 bpm Height: 6' Temperature: 36.6 (C) / 97.8 (F) Weight: 235 lbs 12/22/2009 Blood Pressure 1: 140/74 Code: 8480-6 BMI: 31.9 Code: 68782-6 Heart Rate 1: 94 bpm Height: 6' SpO2: 92% Temperature: 35.7 (C) / 96.2 (F) Weight: 235 lbs 12/13/2009 Blood Pressure 1: 146/80 Code: 8480-6 BMI: 33.0 Code: 50706-8 Heart Rate 1: 86 bpm Height: 6' [...] fighting constantly with her. follow up 04/22/2018 [facility] fwup follow up 01/28/2018 knee pain 01/23/2018 nocturia 01/02/2018 dyspnea 12/28/2017 follow up 12/21/2017 chest congestion 12/17/2017 knee pain 12/11/2017 mole check 11/07/2017 follow up 10/17/2017 ER fwup cough 08/02/2017 injection(s) 07/24/2017 Pneumovax follow up 07/02/2017 Patient recently ariel campos on [facility], but never picked up. He was also given prednisone/Zpack on 06/16/17 from walk in clinic. Patient is also in consult with Dr Benjamin. patient dc'd from hospital last week and reports that he is still taking the antibiotic that was prescribed to him (augmentin) and finished out the prednisone. 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 follow up 05/29/2017 Discuss Low Back [...] nightly. Patient has just been discharged from [place] with Pneumonia. Currently on Levaquin once daily. [...] fwup follow up 03/13/2016 Patient [facility] for [facility] on medication education for insulin use [...] 12/13/2009 Encounters Encounter Performer Location Codes Date ([id number]) OFFICE/OUTPATIENT VISIT EST Diagnosis: Chronic obstructive pulmonary disease, unspecified[ICD10: J44.9] Lita BARAKAT [facility] CPT-4: 88366 03/04/2020 ([id number]) OFFICE/OUTPATIENT VISIT EST Diagnosis: Chronic obstructive pulmonary disease, unspecified[ICD10: J44.9] Lita BARAKAT DO [employer] CPT-4: 24531 02/04/2020 ([id number]) OFFICE/OUTPATIENT VISIT EST Diagnosis: Chronic obstructive pulmonary disease with (acute) exacerbation[ICD10: J44.1] Lita BARAKAT DO [facility] CPT- 4: 58212 12/25/2019 ([id number]) OFFICE/OUTPATIENT VISIT EST Diagnosis: Noncompliance with diabetes treatment[ICD10: Z91.19] Diagnosis: Insomnia[ICD10: G47.00] Diagnosis: Pain in right knee[ICD10: M25.561] [facility]: 75145 12/22/2019 ([id number]) OFFICE/OUTPATIENT VISIT EST Diagnosis: Chronic respiratory failure with hypercapnia[ICD10: J96.12] Diagnosis: Chronic airway obstruction, not elsewhere classified[ICD10: J44.9] Diagnosis: Basal cell carcinoma, face[ICD10: C44.310] Lita BARAKAT DO [facility] CPT-4: 68366 11/12/2019 ([id number]) OFFICE/OUTPATIENT VISIT EST Diagnosis: Chronic obstructive pulmonary disease, unspecified[ICD10: J44.9] Diagnosis: Right thyroid nodule[ICD10: E04.1] Lita BARAKAT [employer] [facility] CPT-4: 18586 09/11/2019 ([id number]) OFFICE/OUTPATIENT VISIT EST Diagnosis: Chronic bronchitis[ICD10: J42] 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] Diagnosis: FLU VACCINE[ICD10: Z23] Lita PABLO [facility] CPT-4: 71622 08/07/2019 ([id number]) OFFICE/OUTPATIENT VISIT EST Diagnosis: Chronic obstructive pulmonary disease with (acute) exacerbation[ICD10: J44.1] Autumn BARAKAT DO [facility] CPT- 4: 47488 07/14/2019 ([id number]) OFFICE/OUTPATIENT VISIT EST Diagnosis: Primary insomnia[ICD10: F51.01] Diagnosis: Dyspepsia and other specified disorders of function of stomach[ICD10: K31.89] Lita BARAKAT [employer] [facility] CPT-4: 23104 07/01/2019 ([id number]) OFFICE/OUTPATIENT VISIT EST Diagnosis: Epigastric pain[ICD10: R10.13] Diagnosis: Nausea[ICD10: R11.0] Diagnosis: Weight loss[ICD10: R63.4] Lita AREVALO DO [facility] CPT-4: 48755 06/24/2019 ([id number]) OFFICE/OUTPATIENT VISIT EST Diagnosis: Chronic obstructive pulmonary disease, unspecified[ICD10: J44.9] Diagnosis: Chronic insomnia[ICD10: F51.04] Diagnosis: Anemia[ICD10: D64.9] Diagnosis: Diplopia[ICD10: H53.2] Diagnosis: [place][ICD10: F30.9] Lita BARAKAT DO [facility] CPT-4: 83860 06/17/2019 ([id number]) NURSE/OUTPATIENT VISIT EST Diagnosis: Vitamin B12 deficiency anemia, unspecified[ICD10: D51.9] Lita BARAKAT DO [facility] CPT-4: 78487 06/10/2019 ([id number]) NURSE/OUTPATIENT VISIT EST Diagnosis: Vitamin B12 deficiency anemia, unspecified[ICD10: D51.9] Lita BARAKAT DO [facility] CPT-4: 57326 06/02/2019 ([id number]) NURSE/OUTPATIENT VISIT EST Diagnosis: Vitamin B12 deficiency anemia, unspecified[ICD10: D51.9] Lita BARAKAT DO [facility] CPT-4: 57234 05/27/2019 ([id number]) NURSE/OUTPATIENT VISIT EST Diagnosis: Vitamin B12 deficiency anemia, unspecified[ICD10: D51.9] Lita BARAKAT DO [facility] CPT-4: 94680 05/12/2019 ([id number]) OFFICE/OUTPATIENT VISIT EST Diagnosis: Restless legs syndrome[ICD10: G25.81] Diagnosis: Primary insomnia[ICD10: F51.01] Diagnosis: Anemia, unspecified[ICD10: D64.9] Diagnosis: Type 2 diabetes mellitus with hyperglycemia[ICD10: E11.65] Diagnosis: Vitamin D deficiency, unspecified[ICD10: E55.9] Lita BARAKAT DO [facility] CPT-4: 20951 05/08/2019 ([id number]) OFFICE/OUTPATIENT VISIT EST Diagnosis: Pain in right knee[ICD10: M25.561] Diagnosis: Restless legs syndrome[ICD10: G25.81] Diagnosis: Insomnia, unspecified[ICD10: G47.00] Lita BARAKAT DO [facility] CPT-4: 40917 04/07/2019 ([id number]) NO CHARGE Diagnosis: Chronic obstructive pulmonary disease with (acute) exacerbation[ICD10: J44.1] Diagnosis: Dizziness and giddiness[ICD10: R42] Diagnosis: Generalized anxiety disorder[ICD10: F41.1] Autumn BARAKAT DO [facility] CPT-4: 29568 03/24/2019 ([id number]) OFFICE/OUTPATIENT VISIT EST Diagnosis: Chronic obstructive pulmonary disease with (acute) exacerbation[ICD10: J44.1] Diagnosis: Dizziness and giddiness[ICD10: R42] Autumn BARAKAT [employer] [facility] CPT-4: 97041 03/21/2019 ([id number]) OFFICE/OUTPATIENT VISIT EST Diagnosis: Candidal stomatitis[ICD10: B37.0] Lita BARAKAT [employer] [facility] CPT-4: 52170 03/13/2019 ([id number]) OFFICE/OUTPATIENT VISIT EST Diagnosis: Chronic obstructive pulmonary disease with acute lower respiratory infection[ICD10: J44.0] Diagnosis: Restless legs syndrome[ICD10: G25.81] Lita BARAKAT [employer] [facility] CPT-4: 65920 03/10/2019 ([id number]) OFFICE/OUTPATIENT VISIT EST Diagnosis: Restless legs syndrome[ICD10: G25.81] Lita ARCHERNDBEV JOHNSON [facility] CPT-4: 04719 02/26/2019 ([id number]) OFFICE/OUTPATIENT VISIT EST Diagnosis: Primary insomnia[ICD10: F51.01] Diagnosis: Chronic obstructive pulmonary disease, unspecified[ICD10: J44.9] Lita BARAKAT [employer] [facility] CPT-4: 71010 02/13/2019 ([id number]) OFFICE/OUTPATIENT VISIT EST Diagnosis: Chronic obstructive pulmonary disease, unspecified[ICD10: J44.9] Diagnosis: Chronic respiratory failure with hypoxia[ICD10: J96.11] Diagnosis: Chronic respiratory failure with hypercapnia[ICD10: J96.12] Lita ALYLINE Ashley BARAKAT DO [facility] CPT-4: 30450 01/14/2019 ([id number]) OFFICE/OUTPATIENT VISIT EST Diagnosis: Chronic respiratory failure with hypoxia[ICD10: J96.11] Diagnosis: Patient's noncompliance with other medical treatment and regimen[ICD10: Z91.19] Diagnosis: Chronic obstructive pulmonary disease with (acute) exacerbation[ICD10: J44.1] Lita BARAKAT [employer] [facility] CPT- 4: 42258 12/25/2018 ([id number]) OFFICE/OUTPATIENT VISIT EST Diagnosis: Essential (primary) hypertension[ICD10: I10] Diagnosis: Type 2 diabetes mellitus with hyperglycemia[ICD10: E11.65] Diagnosis: Hypothyroidism, unspecified[ICD10: E03.9] Diagnosis: Hyperlipidemia, unspecified[ICD10: E78.5] Diagnosis: Acute recurrent maxillary sinusitis[ICD10: J01.01] Ines Banerjee LITA BARAKAT [employer] [facility] CPT-4: 43450 12/09/2018 ([id number]) OFFICE/OUTPATIENT VISIT EST Diagnosis: Candidal stomatitis[ICD10: B37.0] Lita Barakat RUSSEL Segura Ashley BARAKAT [employer] [facility] CPT-4: 64690 12/05/2018 ([id number]) OFFICE/OUTPATIENT VISIT EST Diagnosis: Acute recurrent sinusitis, unspecified[ICD10: J01.91] Diagnosis: Pain in right knee[ICD10: M25.561] Lita GONZALES Ashley BARAKAT [employer] [facility] CPT-4: 14980 10/23/2018 ([id number]) OFFICE/OUTPATIENT VISIT EST Diagnosis: Restless legs syndrome[ICD10: G25.81] Diagnosis: Basal cell carcinoma of skin of scalp and neck[ICD10: C44.41] Lita Yuval ALYLINE Ashley BARAKAT [employer] [facility] CPT-4: 77289 08/21/2018 ([id number]) OFFICE/OUTPATIENT VISIT EST Diagnosis: Chronic obstructive pulmonary disease with acute lower respiratory infection[ICD10: J44.0] Diagnosis: Restless legs syndrome[ICD10: G25.81] Lita BARAKAT DO [facility] CPT-4: 63314 08/07/2018 ([id number]) OFFICE/OUTPATIENT VISIT EST Diagnosis: Chronic obstructive pulmonary disease with acute lower respiratory infection[ICD10: J44.0] Lita BARAKAT DO [facility] CPT-4: 89404 05/23/2018 ([id number]) OFFICE/OUTPATIENT VISIT EST Diagnosis: Candidal stomatitis[ICD10: B37.0] Lita BARAKAT DO [facility] CPT-4: 95343 05/02/2018 ([id number]) OFFICE/OUTPATIENT VISIT EST Diagnosis: Candidal stomatitis[ICD10: B37.0] Diagnosis: Other retention of urine[ICD10: R33.8] Diagnosis: Chronic obstructive pulmonary disease with acute lower respiratory infection[ICD10: J44.0] Autumn BARAKAT [facility] CPT-4: 76214 04/29/2018 ([id number]) OFFICE/OUTPATIENT VISIT EST Diagnosis: Chronic obstructive pulmonary disease with acute lower respiratory infection[ICD10: J44.0] Lita BARAKAT DO [facility] CPT-4: 12307 04/22/2018 ([id number]) OFFICE/OUTPATIENT VISIT EST Diagnosis: Unilateral primary osteoarthritis, right knee[ICD10: M17.11] Diagnosis: Squamous cell carcinoma of skin, unspecified[ICD10: C44.92] Lita BARAKAT DO [facility] CPT-4: 62232 01/28/2018 ([id number]) OFFICE/OUTPATIENT VISIT EST Diagnosis: Pain in right knee[ICD10: M25.561] Diagnosis: 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] Lita BARAKAT DO [facility] CPT-4: 24942 01/23/2018 ([id number]) OFFICE/OUTPATIENT VISIT EST Diagnosis: Urinary tract infection, site not specified[ICD10: N39.0] Diagnosis: Chronic obstructive pulmonary disease with acute lower respiratory infection[ICD10: J44.0] Lita BARAKAT [facility] CPT-4: 77681 01/02/2018 ([id number]) OFFICE/OUTPATIENT VISIT EST Diagnosis: Chronic obstructive pulmonary disease with (acute) exacerbation[ICD10: J44.1] Autumn BARAKAT DO [facility] CPT- 4: 87283 12/28/2017 ([id number]) OFFICE/OUTPATIENT VISIT EST Diagnosis: Acute bronchitis, unspecified[ICD10: J20.9] Autumn BARAKAT DO [facility] CPT-4: 49774 12/21/2017 ([id number]) OFFICE/OUTPATIENT VISIT EST Diagnosis: Chronic obstructive pulmonary disease with acute lower respiratory infection[ICD10: J44.0] Diagnosis: Pain in right knee[ICD10: M25.561] Autumn BARAKAT [facility] CPT-4: 02269 12/17/2017 ([id number]) OFFICE/OUTPATIENT VISIT EST Diagnosis: Laceration without foreign body of right hand, sequela[ICD10: S61.411S] Diagnosis: Restless legs syndrome[ICD10: G25.81] Lita BARAKAT [facility] CPT-4: 63336 10/17/2017 OFFICE/OUTPATIENT VISIT EST Diagnosis: Chronic obstructive pulmonary disease with acute lower respiratory infection[ICD10: J44.0] Autumn BARAKAT [facility] CPT-4: 45410 08/02/2017 ([id number]) OFFICE/OUTPATIENT VISIT EST Diagnosis: PNEUMOCOCCAL VACCINE[ICD10: Z23] Lita BARAKAT [facility] CPT-4: 10755 07/24/2017 OFFICE/OUTPATIENT VISIT EST Diagnosis: Chronic obstructive pulmonary disease with (acute) exacerbation[ICD10: J44.1] Autumn BARAKAT [facility] CPT- 4: 49475 07/02/2017 OFFICE/OUTPATIENT VISIT EST Diagnosis: Low back pain[ICD10: M54.5] Ruchi Buchanan LITAFLOR GHOTRA [facility] CPT-4: 15313 05/29/2017 ([id number]) OFFICE/OUTPATIENT VISIT EST Diagnosis: Essential (primary) hypertension[ICD10: I10] Diagnosis: Hypothyroidism, unspecified[ICD10: E03.9] Diagnosis: Dizziness and giddiness[ICD10: R42] Diagnosis: Other abnormality of red blood cells[ICD10: R71.8] Diagnosis: Contracture of muscle, unspecified site[ICD10: M62.40] Lita BARAKAT DO [facility] CPT-4: 77397 04/17/2017 OFFICE/OUTPATIENT VISIT EST Diagnosis: Pain in left shoulder[ICD10: M25.512] Ruchi Chanel TADEO BARAKAT [employer] [facility] CPT-4: 03360 01/29/2017 ([id number]) OFFICE/OUTPATIENT VISIT EST Diagnosis: Anemia, unspecified[ICD10: D64.9] Lita BARAKAT [employer] [facility] CPT-4: 71997 12/27/2016 ([id number]) OFFICE/OUTPATIENT VISIT EST Diagnosis: Other fatigue[ICD10: R53.83] Diagnosis: Other iron deficiency anemias[ICD10: D50.8] Lita BARAKAT [employer] [facility] CPT-4: 52235 12/21/2016 ([id number]) OFFICE/OUTPATIENT VISIT EST Diagnosis: Anemia, unspecified[ICD10: D64.9] Diagnosis: Other fatigue[ICD10: R53.83] Diagnosis: Restless legs syndrome[ICD10: G25.81] Lita BARAKAT DO [facility] CPT-4: 84497 12/14/2016 ([id number]) OFFICE/OUTPATIENT VISIT EST Diagnosis: Anemia, unspecified[ICD10: D64.9] Diagnosis: Other abnormality of red blood cells[ICD10: R71.8] Lita BARAKAT DO [facility] CPT-4: 00744 12/12/2016 ([id number]) OFFICE/OUTPATIENT VISIT EST Diagnosis: Pneumonia, unspecified organism[ICD10: J18.9] Diagnosis: Restless legs syndrome[ICD10: G25.81] Magda Toth TADEO BARAKAT [employer] [facility] CPT-4: 92756 11/14/2016 ([id number]) OFFICE/OUTPATIENT VISIT EST Diagnosis: Candidal stomatitis[ICD10: B37.0] Lita Giannielvabev [facility]SEL[facility]CAR [facility] CPT-4: 55850 10/31/2016 ([id number]) OFFICE/OUTPATIENT VISIT EST Diagnosis: Acute upper respiratory infection, unspecified[ICD10: J06.9] Diagnosis: Personal history of pneumonia (recurrent)[ICD10: Z87.01] Magda Toth LITA Ashley [facility] CPT-4: 23714 10/03/2016 ([id number]) OFFICE/OUTPATIENT VISIT EST Diagnosis: Restless legs syndrome[ICD10: G25.81] Diagnosis: Insomnia, unspecified[ICD10: G47.00] Magda ALY FLOR Ashley [facility] CPT-4: 78872 09/04/2016 ([id number]) OFFICE/OUTPATIENT VISIT EST Diagnosis: Restless legs syndrome[ICD10: G25.81] Diagnosis: Primary insomnia[ICD10: F51.01] Lita Giannielvabev ALYLITA Ashley [facility] CPT-4: 00551 08/10/2016 OFFICE/OUTPATIENT VISIT EST Diagnosis: Toxic gastroenteritis and colitis[ICD10: K52.1] Diagnosis: Dizziness and giddiness[ICD10: R42] Diagnosis: Headache[ICD10: R51] Diagnosis: Restless legs syndrome[ICD10: G25.81] Lita Giannibetty TRAN Ashley [facility] CPT-4: 23163 07/06/2016 ([id number]) OFFICE/OUTPATIENT VISIT EST Diagnosis: Chest pain, unspecified[ICD10: R07.9] Diagnosis: Dyspnea, unspecified[ICD10: R06.00] Magda Toth ELLIS CONDE Ashley [facility] CPT-4: 72453 06/22/2016 ([id number]) OFFICE/OUTPATIENT VISIT EST Diagnosis: 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] Diagnosis: PNEUMOCOCCAL VACCINE[ICD10: Z23] Diagnosis: FLU VACCINE[ICD10: Z23] Lita CRAWFORD Ashley [facility] CPT-4: 57744 06/13/2016 ([id number]) OFFICE/OUTPATIENT VISIT EST Diagnosis: Chest pain, unspecified[ICD10: R07.9] Diagnosis: Other forms of dyspnea[ICD10: R06.09] Diagnosis: Shortness of breath[ICD10: R06.02] Diagnosis: Other fatigue[ICD10: R53.83] Magda BARAKAT [facility] CPT-4: 99194 06/01/2016 ([id number]) OFFICE/OUTPATIENT VISIT EST Diagnosis: Unspecified hearing loss, left ear[ICD10: H91.92] Diagnosis: Other specified disorders of Eustachian tube, left ear[ICD10: H69.82] Magda ALYLINE Ashley BARAKAT [facility] CPT-4: 74616 11/2015 ([id number]) OFFICE/OUTPATIENT VISIT EST Diagnosis: Impacted cerumen, bilateral[ICD10: H61.23] Diagnosis: DM W/O COMPLICATION TYPE I, 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: E10.9] Diagnosis: Generalized anxiety disorder[ICD10: F41.1] Lita Yuval ALYLINE Ashley FUNEZ [employer] [facility] CPT-4: 00700 04/03/2016 ([id number]) OFFICE/OUTPATIENT VISIT EST Diagnosis: 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] Lita Yuval ALYLINE Ashley [facility] CPT - 4: 80089 03/13/2016 ([id number]) OFFICE/OUTPATIENT VISIT EST Diagnosis: Type 2 diabetes mellitus with hyperglycemia[ICD10: E11.65] Diagnosis: Hyperlipidemia, unspecified[ICD10: E78.5] Diagnosis: Essential (primary) hypertension[ICD10: I10] Diagnosis: Chronic obstructive pulmonary disease, unspecified[ICD10: J44.9] Diagnosis: Testicular hypofunction[ICD10: E29.1] Diagnosis: Male erectile dysfunction, unspecified[ICD10: N52.9] Diagnosis: Anemia, unspecified[ICD10: D64.9] Lita Giannibetty Segura Ashley FUN[facility] [employer] [facility] CPT-4: 95408 03/06/2016 ([id number]) OFFICE/OUTPATIENT VISIT EST Diagnosis: Type 2 diabetes mellitus with hyperglycemia[ICD10: E11.65] Diagnosis: Hyperlipidemia, unspecified[ICD10: E78.5] Diagnosis: Chronic obstructive pulmonary disease, unspecified[ICD10: J44.9] Diagnosis: Male erectile dysfunction, unspecified[ICD10: N52.9] Lita BARAKAT DO [facility] CPT-4: 97816 03/02/2016 ([id number]) OFFICE/OUTPATIENT VISIT EST Diagnosis: Pain in right foot[ICD10: M79.671] Magda BARAKAT DO [facility] CPT-4: 35021 02/14/2016 OFFICE/OUTPATIENT VISIT EST Diagnosis: Generalized anxiety disorder[ICD10: F41.1] Lita BARAKAT DO [facility] CPT-4: 05302 01/31/2016 ([id number]) OFFICE/OUTPATIENT VISIT EST Diagnosis: Generalized anxiety disorder[ICD10: F41.1] Lita BARAKAT DO [facility] CPT-4: 04359 12/30/2015 ([id number]) OFFICE/OUTPATIENT VISIT EST Diagnosis: Localized swelling, mass and lump, neck[ICD10: R22.1] Lita BARAKAT DO [facility] CPT-4: 58608 12/16/2015 OFFICE/OUTPATIENT VISIT EST Diagnosis: Localized enlarged lymph nodes[ICD10: R59.0] Diagnosis: Otalgia, left ear[ICD10: H92.02] Stephanie BARAKAT DO [facility] CPT-4: 37597 12/06/2015 OFFICE/OUTPATIENT VISIT EST Diagnosis: Localized enlarged lymph nodes[ICD10: R59.0] Diagnosis: Squamous cell carcinoma of skin, unspecified[ICD10: C44.92] Diagnosis: Actinic keratosis[ICD10: L57.0] Stephanie BARAKAT DO [facility] CPT-4: 35750 11/15/2015 OFFICE/OUTPATIENT VISIT EST Diagnosis: Cellulitis of left lower limb[ICD10: L03.116] Diagnosis: Encounter for examination and observation for other specified reasons[ICD10: Z04.8] Diagnosis: Chronic obstructive pulmonary disease, unspecified[ICD10: J44.9] Stephanie BARAKAT DO [facility] CPT-4: 03755 07/22/2015 OFFICE/OUTPATIENT VISIT EST Diagnosis: Other specified joint disorders, left knee[ICD10: M25.862] Diagnosis: Cellulitis of left lower limb[ICD10: L03.116] Diagnosis: Other fatigue[ICD10: R53.83] Diagnosis: Hyperlipidemia, unspecified[ICD10: E78.5] Stephanie BARAKAT DO [facility] CPT-4: 53028 07/01/2015 OFFICE/OUTPATIENT VISIT EST Diagnosis: Pain in left knee[ICD10: M25.562] Diagnosis: Cellulitis of left lower limb[ICD10: L03.116] Diagnosis: Other specified joint disorders, left knee[ICD10: M25.862] Stephanie BARAKAT [facility] CPT-4: 33540 06/28/2015 OFFICE/OUTPATIENT VISIT EST Diagnosis: PREPATELLAR BURSITIS[ICD9: 726.65] Diagnosis: Cellulitis of knee, left[ICD9: 682.6] Stephanie BARAKAT [facility] CPT-4: 41995 06/09/2015 ([id number]) OFFICE/OUTPATIENT VISIT EST Diagnosis: PREPATELLAR BURSITIS[ICD9: 726.65] Diagnosis: Cellulitis of knee, left[ICD9: 682.6] Lita BARAKAT [facility] CPT-4: 78443 06/07/2015 OFFICE/OUTPATIENT VISIT EST Diagnosis: Cellulitis of knee, left[ICD9: 682.6] Stephanie BARAKAT [facility] CPT-4: 57978 06/03/2015 ([id number]) OFFICE/OUTPATIENT VISIT EST Diagnosis: DM W/O COMPLICATION TYPE II, UNCONTROLLED[ICD9: 250.02] Diagnosis: COPD[ICD9: 496] Lita BARAKAT [facility] CPT- 4: 58337 06/01/2015 ([id number]) OFFICE/OUTPATIENT VISIT EST Diagnosis: COPD[ICD9: 496] Diagnosis: DYSPNEA[ICD9: 786.09] Diagnosis: DM W/O COMPLICATION TYPE II, UNCONTROLLED[ICD9: 250.02] Diagnosis: Actinic keratosis[ICD9: 702.0] Lita BARAKAT [employer] [facility] CPT-4: 58679 02/25/2015 ([id number]) OFFICE/OUTPATIENT VISIT EST Diagnosis: ASTHMA NOS[ICD9: 493.90] Diagnosis: COPD[ICD9: 496] Diagnosis: DM W/O COMPLICATION TYPE II, UNCONTROLLED[ICD9: 250.02] Lita BARAKAT [facility] CPT-4: 58041 10/27/2014 OFFICE/OUTPATIENT VISIT EST Diagnosis: DYSPNEA[ICD9: 786.09] Diagnosis: COPD[ICD9: 496] Lita BARAKAT DO [facility] CPT- 4: 04009 10/06/2014 ([id number]) OFFICE/OUTPATIENT VISIT EST Diagnosis: PNEUMONIA, ORGANISM[ICD9: 486] Diagnosis: COPD[ICD9: 496] Diagnosis: DYSPNEA[ICD9: 786.09] Lita BARAKAT [facility] CPT-4: 06112 09/21/2014 OFFICE/OUTPATIENT VISIT EST Diagnosis: PNEUMONIA, ORGANISM[ICD9: 486] Diagnosis: DYSPNEA[ICD9: 786.09] Diagnosis: COUGH[ICD9: 786.2] Stephanie BARAKAT [facility] CPT-4: 55949 09/08/2014 OFFICE/OUTPATIENT VISIT EST Diagnosis: COPD with exacerbation[ICD9: 491.21] Diagnosis: COUGH[ICD9: 786.2] Diagnosis: DYSPNEA[ICD9: 786.09] Stephanie BARAKAT DO [facility] CPT-4: 52227 09/02/2014 ([id number]) OFFICE/OUTPATIENT VISIT EST Diagnosis: DM W/O COMPLICATION TYPE II, UNCONTROLLED[ICD9: 250.02] Lita BARAKAT [facility] CPT-4: 77905 08/27/2014 ([id number]) OFFICE/OUTPATIENT VISIT EST Diagnosis: DM W/O COMPLICATION TYPE II, UNCONTROLLED[ICD9: 250.02] Diagnosis: HYPERLIPIDEMIA NEC/NOS[ICD9: 272.4] Diagnosis: HYPERTENSION[ICD9: 401.9] Diagnosis: COPD[ICD9: 496] Diagnosis: FLU VACCINE[ICD10: Z23] Lita PABLO [facility] CPT-4: 63157 08/05/2014 ([id number]) OFFICE/OUTPATIENT VISIT EST Diagnosis: COPD[ICD9: 496] Diagnosis: Lumbar degenerative disc disease[ICD9: 722.52] Lita ABRAKAT [facility] CPT-4: 44165 05/05/2014 OFFICE/OUTPATIENT VISIT EST Diagnosis: DYSPNEA[ICD9: 786.09] Diagnosis: COPD[ICD9: 496] Lita BARAKAT [facility] CPT- 4: 46125 03/24/2014 ([id number]) OFFICE/OUTPATIENT VISIT EST Diagnosis: COPD[ICD9: 496] Diagnosis: DYSPNEA[ICD9: 786.09] Lita BARAKAT [facility] CPT-4: 19719 03/10/2014 OFFICE/OUTPATIENT VISIT EST Diagnosis: Subacromial bursitis[ICD9: 726.19] Diagnosis: Chronic low back pain[ICD9: 724.2] Diagnosis: Lumbar degenerative disc disease[ICD9: 722.52] Lita BARAKAT [facility] CPT-4: 82804 12/16/2013 ([id number]) OFFICE/OUTPATIENT VISIT EST Diagnosis: PHARYNGITIS, ACUTE[ICD9: 462] Diagnosis: COPD[ICD9: 496] Lita BARAKAT [facility] CPT- 4: 17449 10/09/2013 OFFICE/OUTPATIENT VISIT EST Diagnosis: COPD[ICD9: 496] Diagnosis: Acute exacerbation of chronic obstructive pulmonary disease (COPD)[ICD9: 491.21] Ruchi Buchanan LITA BARAKAT [facility] CPT-4: 61618 09/18/2013 ([id number]) OFFICE/OUTPATIENT VISIT EST Diagnosis: PNEUMONIA, ORGANISM[ICD9: 486] Diagnosis: DM W/O COMPLICATION TYPE II[ICD9: 250.00] Lita BARAKAT [facility] CPT-4: 01809 08/13/2013 ([id number]) OFFICE/OUTPATIENT VISIT EST Diagnosis: DM W/O COMPLICATION TYPE II, UNCONTROLLED[ICD9: 250.02] Diagnosis: HYPERLIPIDEMIA NEC/NOS[ICD9: 272.4] Diagnosis: HYPERTENSION[ICD9: 401.9] Diagnosis: DYSPNEA[ICD9: 786.09] Diagnosis: Family history of CABG[ICD9: V17.49] Lita Ramirez [facility] CPT-4: 64919 07/16/2013 ([id number]) OFFICE/OUTPATIENT VISIT EST Diagnosis: DM W/O COMPLICATION TYPE II, UNCONTROLLED[ICD9: 250.02] Diagnosis: HYPERLIPIDEMIA NEC/NOS[ICD9: 272.4] Diagnosis: HYPERTENSION[ICD9: 401.9] Lita Ramirez [facility] CPT-4: 16712 06/25/2013 OFFICE/OUTPATIENT VISIT EST Diagnosis: COUGH[ICD9: 786.2] Diagnosis: COPD[ICD9: 496] Kimberly Ramirez [facility] CPT- 4: 68904 04/09/2013 ([id number]) OFFICE/OUTPATIENT VISIT EST Diagnosis: Muscle spasm[ICD9: 728.85] Diagnosis: ARTHRALGIA-MULTIPLE SITES[ICD9: 719.49] Lita Ramirez [facility] CPT-4: 58348 02/11/2013 OFFICE/OUTPATIENT VISIT EST Diagnosis: COPD with exacerbation[ICD9: 491.21] Diagnosis: BRONCHITIS, ACUTE[ICD9: 466.0] Ruchi [facility] CPT-4: 91644 01/31/2013 OFFICE/OUTPATIENT VISIT EST Diagnosis: COUGH[ICD9: 786.2] Diagnosis: PHARYNGITIS, ACUTE[ICD9: 462] Diagnosis: SINUSITIS, ACUTE[ICD9: 461.9] Lita Ramirez [facility] CPT-4: 31329 01/20/2013 OFFICE/OUTPATIENT VISIT EST Diagnosis: DIZZINESS/VERTIGO[ICD9: 780.4] Lita [facility] CPT-4: 04277 12/19/2012 OFFICE/OUTPATIENT VISIT EST Diagnosis: Skin lesion of left arm[ICD9: 709.9] Diagnosis: Otitis externa[ICD9: 380.10] Diagnosis: PHARYNGITIS, ACUTE[ICD9: 462] Lita [facility] CPT-4: 48078 10/21/2012 ([id number]) OFFICE/OUTPATIENT VISIT EST Diagnosis: DM W/O COMPLICATION TYPE II, UNCONTROLLED[ICD9: 250.02] Diagnosis: HYPERLIPIDEMIA NEC/NOS[ICD9: 272.4] Diagnosis: HYPERTENSION[ICD9: 401.9] Lita [facility] CPT-4: 50645 09/19/2012 ([id number]) OFFICE/OUTPATIENT VISIT EST Diagnosis: DM W/O COMPLICATION TYPE II, UNCONTROLLED[ICD9: 250.02] Diagnosis: HYPERLIPIDEMIA NEC/NOS[ICD9: 272.4] Diagnosis: COPD[ICD9: 496] Lita [facility] CPT- 4: 04080 09/18/2012 ([id number]) OFFICE/OUTPATIENT VISIT EST Diagnosis: BRONCHITIS, ACUTE[ICD9: 466.0] Diagnosis: SINUSITIS, ACUTE[ICD9: 461.9] Lita [facility] CPT-4: 56496 08/28/2012 ([id number]) OFFICE/OUTPATIENT VISIT EST Diagnosis: COPD[ICD9: 496] Diagnosis: DYSPNEA[ICD9: 786.09] Diagnosis: VAC STREP PNEUMONIAE-FLU (Medicare)[ICD9: V06.6] Lita [facility] CPT-4: 50401 07/10/2012 ([id number]) OFFICE/OUTPATIENT VISIT EST Diagnosis: DM W/O COMPLICATION TYPE II, UNCONTROLLED[ICD9: 250.02] Diagnosis: HYPERTENSION[ICD9: 401.9] Diagnosis: HYPERLIPIDEMIA NEC/NOS[ICD9: 272.4] Diagnosis: DIZZINESS/VERTIGO[ICD9: 780.4] Lita [facility] CPT-4: 51521 05/09/2012 ([id number]) OFFICE/OUTPATIENT VISIT EST Diagnosis: DM W/O COMPLICATION TYPE II, UNCONTROLLED[ICD9: 250.02] Diagnosis: HYPERLIPIDEMIA NEC/NOS[ICD9: 272.4] Diagnosis: HYPERTENSION[ICD9: 401.9] Diagnosis: MALAISE AND FATIGUE[ICD9: 780.79] Lita Segura SFerdinand ARCHERNDER [facility] CPT-4: 41496 05/06/2012 OFFICE/OUTPATIENT VISIT EST Diagnosis: COUGH[ICD9: 786.2] Diagnosis: SINUSITIS, ACUTE[ICD9: 461.9] Diagnosis: PHARYNGITIS, ACUTE[ICD9: 462] Lita CRAWFORD SFerdinand ARCHERNDER [facility] CPT-4: 73422 10/02/2011 OFFICE/OUTPATIENT VISIT EST Diagnosis: DM W/O COMPLICATION TYPE II, UNCONTROLLED[ICD9: 250.02] Diagnosis: HYPERLIPIDEMIA NEC/NOS[ICD9: 272.4] Diagnosis: HYPERTENSION[ICD9: 401.9] Diagnosis: COPD[ICD9: 496] Lita CRAWFORD SFerdinand ARCHERNDER DO [facility] CPT- 4: 81363 08/07/2011 OFFICE/OUTPATIENT VISIT EST Lita CRAWFORD S. ORE NDER DO [facility] CPT- 4: 15191 04/03/2011 ([id number]) OFFICE/OUTPATIENT VISIT EST Lita PALACIOS S. ORENDER DO [facility] CPT-4: 93428 01/18/2011 ([id number]) OFFICE/OUTPATIENT VISIT EST Lita PALACIOS S. ORENDER DO [facility] CPT-4: 20739 12/19/2010 ([id number]) OFFICE/OUTPATIENT VISIT, EST Lita Oreelvabev HOLMAN S. ORENDER DO [facility] CPT-4: 65017 04/05/2010 ([id number]) OFFICE/OUTPATIENT VISIT, EST Lita Giannielvabev HOLMAN S. ORENDER DO [facility] CPT-4: 05057 01/13/2010 ([id number]) OFFICE/OUTPATIENT VISIT, EST Lita Giannielvabev ALIZE MANDA S. ORENDER DO [facility] CPT-4: 24461 12/23/2009 ([id number]) OFFICE/OUTPATIENT VISIT, EST Lita Giannielvabev ALIZE MANDA S. ORENDER DO [facility] CPT-4: 25681 12/22/2009 ([id number]) OFFICE/OUTPATIENT VISIT, EST [facility] CPT-4: 90846 12/13/2009 Plan of Care Planned Activity Notes [...] : J44.9 02/04/2020 Appointment: Lita Barakat WPtel: [address] [place], [place] [phone] [place] MEDICATION REVIEW 02/04/2020 Visit Diagnosis Plan: Chronic obstructiv e pulmonary disease with (acute) exacerbation Discussion: Solumedrol 125mg IM Continue SVNs every 4hrs Prednisone for 1 week COVID-19 precautions ICD-9 : 491.21 ICD-10 : J44.1 12/25/2019 Appointment: Lita Barakat WPtel: [address] [place], [place] [phone] FOLLOW UP 12/25/2019 Patient Education: prednisone- Optimize[employer] Coupon [id number] https://www.[employer]/Logentriesmd/resources/getResource/61/zj2kd0r2-9i1b-801g-46 Completed 12/25/2019 Visit Diagnosis Plan: Noncompliance with [...] M25.561 12/22/2019 Appointment: L[facility] [phone] [id number] [facility] 12/22/2019 Patient Education: baclofen- [employer] Coupon [id number] https://www.[employer]/samplemd/resources/getResource/61/yn1ii705-nrn2-8mk4-02 Completed 12/22/2019 Visit Diagnosis Plan: Chronic respiratory [...] C44.310 11/12/2019 Appointment: Lita [facility]at [facility] [phone] [id number] [facility] 11/12/2019 Care Plan: Referral Order SNOMED-CT : 30 1699410 Pending 11/12/2019 Care Plan: Referral Order SNOMED-CT : 30 9639687 Pending 11/12/2019 Visit Diagnosis Plan: Right thyroid nodule Discussion: Check thyroid US ICD-9 : 241.0 ICD-10 : E04.1 09/11/2019 Visit Diagnosis Plan: Chronic obstructive pulmonary di sease, unspecified Discussion: Start Pulmonary Rehab Reviewed results of CT of chest ordered by pulmonology Follow Up: 3 months ICD-9 : 496 ICD-10 : J44.9 09/11/2019 Appointment: Lita Barakat WPtel: [address] [place], [place] [phone] US MEDICATION REVIEW 09/11/2019 Care Plan: US EXAM OF HEAD AND NECK LOIN C : 50620-8 Pending 09/11/2019 Visit Diagnosis Plan: Chronic bronchitis Discussion: A ugmentin for 10 days ICD-9 : 491.9 ICD-10 : J42 08/07/2019 Appointment: Lita Barakat WPtel: [address] [place], [place] [phone] ACUTE ILLNESS 08/07/2019 Visit Diagnosis Plan: Chronic [...] him that overuse of symbicort can cause nursing home damage and the albuterol is to be used every 4 hours as needed. call office later this week with worsening or no improvement ICD-9 : 491.21 ICD-10 : J44.1 07/14/2019 Appointment: Autumn Oneil [address] [place], [place] [id number] ACUTE ILLNESS 07/14/2019 Visit Diagnosis Plan: [...] : F51.01 07/01/2019 Appointment: Lita Barakat WPtel: [address] [place], [place] [phone] US FOLLOW UP 07/01/2019 Care Plan: CT ABDOMEN W/O DYE LOINC : 36 103-0 Pending 07/01/2019 Care Plan: Referral Order SNOMED-CT : 30 [id number] Pending 07/01/2019 Visit Diagnosis Plan: Weight loss [...] R10.13 06/24/2019 Appointment: Lita Barakat [facility]el[facility] [phone] [id number] [facility] 06/24/2019 Patient Education: Seroquel- Optimize[employer] Coupon [id number] https://www.FashFolio/sampleTongxue/resources/getResource/61/8sl2i7c0-h743-57j6-40 Completed 06/24/2019 Patient Education: ondansetron HCl- Optimize[employer] Coupon [id number] https://www.FashFolio/sampleTongxue/resources/getResource/61/9156795i-5769-03p8-t3 Completed 06/24/2019 Care Plan: US EXAM ABDOM COMPLETE LOINC : 50705-8 Pending 06/24/2019 Visit Diagnosis Plan: Chronic insomnia [...] : H53.2 06/17/2019 Appointment: Lita Barakat WPtel: [phone] [place], [place] [phone] [place] FOLLOW UP 06/17/2019 Appointment: Lita Barakat WPtel: [address] [place], [place] [phone] [place] INJECTION 06/10/2019 Appointment: Lita Barakat WPtel: [address] [place] [phone] [place] INJECTION 06/02/2019 Appointment: Lita Barakat WPtel: [address] [place], [place] [phone] [place] INJECTION 05/27/2019 Appointment: Lita Barakat WPtel: [address] [place], [place] [phone] [place] INJECTION 05/12/2019 Visit Diagnosis Plan: Anemia, [...] : E55.9 05/08/2019 Appointment: Lita Barakat WPtel: [id number] [id number] FOLLOW UP 05/08/2019 Visit Diagnosis Plan: Pain in right knee Discussion: S top tramadol and tylenol q HS Trial of Hydrocodone 10/325mg po q HS Recheck 1month ICD-9 : 719.46 ICD-10 : M25.561 04/07/2019 Appointment: Lita Barakat WPtel: [id number] Hospital Follow Up 04/07/2019 Visit Diagnosis Plan: [...] : F41.1 03/24/2019 Appointment: Autumn Oneil [address] [place], [place] [id number] 03/24/2019 Patient Education: hydroxyzine HCl- [employer] C[employer]on [id number] Completed 03/24/2019 Patient Education: pantoprazole- [employer] Coupon [id number] Completed 03/24/2019 Visit Diagnosis Plan: Chronic obstructiv e pulmonary disease with (acute) exacerbation Discussion: 90 mg solumedrol given in of fice. patient's portable oxygen tank was empty. [id number] patient on importance of monitoring oxygen tank [...] : R42 03/21/2019 Appointment: [facility] [address] [facility] 03/21/2019 Patient Education: ipratropium-albuterol- [employer] C oupon [id number] [email or web address] Completed 03/21/2019 Visit Diagnosis Plan: Chronic obstructiv e pulmonary disease with (acute) exacerbation Discussion: Solumedrol now Use SVNs with duoneb at least q4hrs Patient is supposed to be on continuous oxygen but not wearing ICD-9 : 491.21 ICD-10 : J44.1 03/13/2019 Visit Diagnosis Plan: Candidal stomatitis Discussion: Diflucan and Nystatin susp ICD-9 : 112.0 ICD-10 : B37.0 03/13/2019 Appointment: Lita Barakat WPtel[facility] [phone] [facility] ACUTE ILLNESS 03/13/2019 Patient Education: losartan- Optimize[employer] Coupon [id number] Completed 03/13/2019 Patient Education: nystatin- [employer] Coupon [id number] Completed 03/13/2019 Patient Education: fluconazole- [employer] Coupon [id number] Completed 03/13/2019 Visit Diagnosis Plan: Chronic obstructiv [...] : G25.81 03/10/2019 Appointment: Lita Barakat WPtel: [address] [place], [place] [phone] ACUTE ILLNESS 03/10/2019 Visit Diagnosis Plan: Restless legs syndrome Discussio n: Stop requip Increase sinemet to TID Add children's chewable MV with iron BID Add magnesium oxide 400mg daily Add Lyrica 75mg po q HS Stop trazadone Recheck 3 weeks Follow Up: 3 weeks ICD-9 : 333.94 ICD-10 : G25.81 02/26/2019 Appointment: Lita Barakat WPtel: [address] [place], [place] [phone] ACUTE ILLNESS 02/26/2019 Visit Diagnosis Plan: Primary insomnia Discussion: Tri al of doxepin 10-20mg po q HS prn sleep ICD-9 : 780.52 ICD-10 : F51.01 02/13/2019 Visit Diagnosis Plan: Chronic obstructive pulmonary di sease, unspecified Discussion: Stable Discussed trip to [place]--will get oxygen setup through [facility] ICD-9 : 496 ICD-10 : J44.9 02/13/2019 Appointment: Lita Barakat WPtel: [address] [place], [place] [phone] [place] FOLLOW UP 02/13/2019 Patient Education: doxepin- Optimize[employer] Coupon [id number] https://www.[employer]/samplemd/resources/getResource/61/99d9y06z-91ob-244r-3q Completed 02/13/2019 Appointment: Lita Barakat WPtel: [address] [place], [place] [phone] [place] CANCELED 01/20/2019 Visit Diagnosis Plan: Chronic obstructive pulmonary di sease, unspecified Discussion: Stable on oxygen Given Symbicort samples Follow Up: 1 months ICD-9 : 496 ICD-10 : J44.9 01/14/2019 Appointment: Lita Barakat WPtel: [address] [place], [place] [id number] Hospital Follow Up 01/14/2019 Visit Diagnosis Plan: [...] : J96.11 12/25/2018 Appointment: Lita Barakat WPtel: [address] [place] [address] Follow Up 12/25/2018 Appointment: Lita Barakat WPtel: [address] [place], [place] [phone] CANCELED 12/23/2018 Appointment: Ines Banerjee [address] [place], [place] [phone] CANCELED 12/20/2018 Visit Diagnosis Plan: Acute recurrent [...] ICD-10 : I10 12/09/2018 Appointment: Ines Banerjee [facility] [address] LAB 12/09/2018 Patient Education: cefdinir- Opt[employer] Coupon [id number] https://www.[employer]/samplemd/resources/getResource/61/w9551v0g-42rb-8460-18 Completed 12/09/2018 Visit Diagnosis Plan: Candidal stomatitis Discussion: Diflucan for 5 days Hold atorvastatin while taking ICD-9 : 112.0 ICD-10 : B37.0 12/05/2018 Appointment: Lita Barakat WPtel: [address] [place] [address] ACUTE ILLNESS 12/05/2018 Patient Education: fluconazole- OptimizeRX Coupon [phone] https://www.[employer]ash[employer]/sampleTongxue/resources/getResource/61/7f132j54-3iw8-62i4-81 Completed 12/05/2018 Appointment: Lita Barakat WPtel: [address] [place] [address] NO SHOW 11/11/2018 Visit Plan: Saline nasal [...] : J01.91 10/23/2018 Appointment: Lita Barakat WPtel: [address] [place] [address] ACUTE ILLNESS 10/23/2018 Patient Education: prednisone- OptimizeRX Coupon [id number] https://www.[employer]/resources/getResource/61/cn7pk775-kilw-8039-54 Completed 10/23/2018 Care Plan: A1C HPLC LOINC : 09297-8 Pending 09/10/2018 Care Plan: COMPREHEN METABOLIC PANEL [place] : 20029-7 Pending 09/10/2018 Care Plan: CBC Pending 09/10/2018 [...] G25.81 08/21/2018 Appointment: Lita Barakat WPtel: [address] [place] [address] ACUTE ILLNESS 08/21/2018 Care Plan: Referral Order SNOMED-CT : 30 9552762 Pending 08/21/2018 Visit Diagnosis Plan: Chronic obstructiv [...] : G25.81 08/07/2018 Appointment: Lita Barakat WPtel: [address] [place] [address] LM FOLLOW UP 08/07/2018 Appointment: Lita Barakat WPtel: [address] [place] [address] 07/18/18 1210---see note in chart (km) CANCELED 07/18/2018 Visit Diagnosis Plan: Chronic obstructiv e pulmonary disease with acute lower respiratory infection Discussion: Solumedrol 125mg IM Change t o trelagy 1 inhalation daily Use SVNs with albuterol q4hrs To ER this weekend if worsens Monitor weight/swelling ICD-9 : 496 ICD-10 : J44.0 05/23/2018 Appointment: Lita Barakat WPtel: [address] [place] [address] ACUTE ILLNESS 05/23/2018 Patient Education: Patient Medication Summary Completed 05/23/2018 Visit Diagnosis Plan: Candidal stomatitis Discussion: Diflucan for 7 more days--hold atrovastatin while taking ICD-9 : 112.0 ICD-10 : B37.0 05/02/2018 Appointment: Lita Barakat WPtel: [phone] [id number] FOLLOW UP 05/02/2018 Patient Education: Patient Medication [...] ICD-10 : J44.0 04/29/2018 Appointment: Autumn Oneil [address] [place], [place] [id number] ACUTE ILLNESS 04/29/2018 Patient Education: Patient Medication [...] J44.0 04/22/2018 Appointment: Lita Barakat WPtel: [address] [place], [place] [phone] Hospital Follow Up 04/22/2018 Patient Education: Patient Medication Summary Completed 04/22/2018 Appointment: Lita Barakat WPtel: [address] [place], [place] [phone] 04/09/18 1640---see message in chart from today [...] M17.11 01/28/2018 Appointment: Lita Barakat WPtel: [address] [place], [place] [phone] ACUTE ILLNESS 01/28/2018 Patient Education: Patient Medication Summary Completed 01/28/2018 Care Plan: Referral Order SNOMED-CT : 30 6746546 Pending 01/28/2018 Care Plan: Referral Order SNOMED-CT : 30 3723727 Pending 01/28/2018 Visit Diagnosis Plan: Functional dyspepsia Discussion: Protonix Call in 1 week on how doing ICD-9 : 536.8 ICD-10 : K30 01/23/2018 Visit Diagnosis Plan: Pain in right knee Discussion: T noemi wong gel QID ICD-9 : 719.46 ICD-10 : M25.561 01/23/2018 Appointment: Lita Barakat WPtel: [address] [place] [address] ACUTE ILLNESS 01/23/2018 Patient Education: Patient Medication [...] : N39.0 01/02/2018 Appointment: Lita Barakat WPtel: [address] [place] [address] ACUTE ILLNESS 01/02/2018 Patient Education: Patient Medication [...] ICD-10 : J44.1 12/28/2017 Appointment: Autumn Oneil [address] [place] [address] Consult 12/28/2017 Patient Education: Patient Medication Summary [...] : J20.9 12/21/2017 Appointment: Autumn Oneil [address] ACUTE ILLNESS 12/21/2017 Patient Education: Patient Medication Summary Completed 12/21/2017 Care Plan: X-RAY EXAM OF KNEE 1 OR 2 right [place] NC : 95971-2 Pending 12/18/2017 Visit Diagnosis Plan: Pain in [...] : J44.0 12/17/2017 Appointment: Autumn Oneil [address] [phone] ACUTE ILLNESS 12/17/2017 Patient Education: Patient Medication Summary Completed 12/17/2017 Visit Diagnosis Plan: Unilateral primary osteoarthriti s, right knee Discussion: Right knee injection as above Warned of elevated BS after injection ICD-9 : 715.96 ICD-10 : M17.11 12/11/2017 Appointment: Lita Barakat WPtel: [address] [place] [address] OFFICE SURGERY 12/11/2017 Patient Education: Patient Medication Summary Completed 12/11/2017 Visit Diagnosis Plan: Actinic keratosis Discussion: Cr yotherapy as above If persists then will need excision by Dr. Swanson ICD-9 : 702.0 ICD-10 : L57.0 11/07/2017 Appointment: Lita Barakat WPtel: [address] [place] [address] ACUTE ILLNESS 11/07/2017 Patient Education: Patient Medication [...] : S61.411S 10/17/2017 Appointment: Lita Barakat WPtel: [address] [place] [address] ER Follow UP 10/17/2017 Patient Education: Patient Medication Summary Completed 10/17/2017 Appointment: Lita Barakat WPtel: [address] [place] [address] Consult 08/15/2017 Visit Diagnosis Plan: Chronic obstructiv [...] ICD-10 : J44.0 08/02/2017 Appointment: Autumn Oneil [address] [place] [address] ACUTE ILLNESS 08/02/2017 Patient Education: Patient Medication Summary Completed 08/02/2017 Patient Education: Patient Medication Summary Completed 07/31/2017 Care Plan: CHEST X-RAY 2VW FRONTAL&LATL LOINC : 99594-7 Pending 07/31/2017 Appointment: Lita Barakat WPtel: [address] [place], [place] [phone] [place] INJECTION 07/24/2017 Patient Education: Patient Medication [...] ICD-10 : J44.1 07/02/2017 Appointment: Autumn Oneil [address] [place] [address] ACUTE ILLNESS 07/02/2017 Patient Education: Patient Medication Summary Completed 07/02/2017 Care Plan: CHEST X-RAY 2VW FRONTAL&LATL LOINC : 91377-4 Pending 07/02/2017 Care Plan: MRI LUMBAR SPINE W/O DYE LOIN C : 95547-1 Pending 05/30/2017 Visit Plan: MRI at [facility] codone 5.325 1 po q 4-6 hours prn pain #40 NR and Cyclobenzaprine (ERx) Continue warm packs for pain RTC if no improvement 05/29/2017 Appointment: Ruchi Buchanan WPtel: [address] [place], [place] [phone] ACUTE ILLNESS 05/29/2017 Patient Education: Patient Medication Summary Completed 05/29/2017 Appointment: Lita Barakat WPtel: [address] [place], [place] [phone] [place] CANCELED 05/24/2017 Patient Education: Patient Medication Summary Completed 05/22/2017 Care Plan: X-RAY EXAM L-S SPINE 2/3 VWS LOINC : 94200-0 Pending 05/22/2017 Appointment: Lita Barakat WPtel: [address] [place] [address] [place] LAB 04/17/2017 Patient Education: Patient Medication Summary Completed 04/17/2017 Referral: Demetrius Benjamin WPtel: [address] [place] [address] Referral Initiated 04/05/2017 Appointment: Lita Barakat WPtel: [address] [place] [address] 03/30/17 0930---spoke with patient about ointments (km Consult 03/30/2017 Appointment: Lita Barakat WPtel: [address] [place] [address] 03/29/17 1320---spoke with patient, requip refilled wasn't received at pharmacy so verbally called (km) Consult 03/29/2017 Patient Education: Patient Medication Summary Completed 03/01/2017 Care Plan: CHEST X-RAY 2VW FRONTAL&LATL LOINC : 37330-5 Pending 03/01/2017 Visit Diagnosis Plan: Bursitis of left shoulder Discus yesi: Injection as above ICD-9 : 726.10 ICD-10 : M75.52 02/01/2017 Appointment: Lita Barakat WPtel: [address] [place] [address] 01/31 confirmed ~sl WORK IN 02/01/2017 Patient Education: Patient Medication Summary Completed 02/01/2017 Care Plan: X-RAY EXAM OF SHOULDER LOINC : 88696-5 Pending 01/30/2017 Visit Plan: May take OTC Tylenol/Ibuprof en as directed XRay at [facility] of left shoulder Tramadol 50mg 1 po q 6 hours prn pain called to [facility]. Sedation warning given (no driving, etc) RTC if no improvement 01/29/2017 Appointment: Ruchi Buchanan WPtel: [address] [place] [address] ACUTE ILLNESS 01/29/2017 Appointment: Chanel Ruchi WPtel: [address] [place] [address] ACUTE ILLNESS 01/29/2017 Patient Education: Patient Medication Summary Completed 01/29/2017 Appointment: Lita Barakat WPtel: [address] [place] [address] [place] Consult 01/10/2017 Appointment: Lita Barakat WPtel: [address] [place] [address] 12/27/2016 Patient Education: Patient Medication Summary Completed [...] : R53.83 12/21/2016 Appointment: Lita Barakat WPtel: [address] [place] [address] ACUTE ILLNESS 12/21/2016 Patient Education: Patient Medication Summary Completed 12/21/2016 Appointment: Lita Barakat WPtel: [address] [place] [address] CANCELED 12/18/2016 Visit Diagnosis Plan: Restless legs [...] : D64.9 12/14/2016 Appointment: Lita Barakat WPtel: [address] [place], [place] [id number] 12/13 confirmed ~sl WORK IN 12/14/2016 Appointment: Lita Barakat WPtel: [address] [place] [id number] [place] CANCELED 12/14/2016 Patient Education: Patient Medication Summary Completed 12/14/2016 Appointment: Lita Barakat WPtel: [address] [place] [id number] [place] LAB 12/12/2016 Patient Education: Patient Medication Summary Completed 12/12/2016 Appointment: Lita Barakat WPtel: [address] [place] [phone] in ER this weekend--called for reports Consult 12/11/2016 Appointment: Lita Barakat WPtel: [address] [place], [place] [id number] [place] CANCELED 12/04/2016 Visit Diagnosis Plan: Pneumonia, [...] ICD-10 : G25.81 11/14/2016 Appointment: Magda Toth [address] [place], [place] [phone] MEDICATION REVIEW 11/14/2016 Patient Education: Patient Medication Summary Completed 11/14/2016 Appointment: Lita Barakat WPtel: [address] [place], [place] [phone] [place] RESCHEDULED 11/02/2016 Visit Diagnosis Plan: Candidal stomatitis Discussion: Diflucan and Nystatin Hold atorvastatin while taking diflucan ICD-9 : 112.0 ICD-10 : B37.0 10/31/2016 Appointment: Lita Barakat WPtel: [address] [place], [place] [phone] ACUTE ILLNESS 10/31/2016 Patient Education: Patient Medication Summary Completed 10/31/2016 Appointment: Lita Barakat WPtel: [address] [place], [place] [phone] [place] Consult 10/23/2016 Appointment: Lita Barakat WPtel: [address] [place], [place] [phone] [place] CANCELED 10/18/2016 Visit Plan: Rx as above Wear O2 at all t imes as instructed by Dr Chacon Continue breathing treatments Supportive care otherwise reviewed Follow up ingrid if not improving 10/03/2016 Appointment: Lita Barakat WPtel: [address] [place], [place] [phone] [place] CANCELED 10/03/2016 Appointment: Magda Toth [address] [place], [place] [phone] ACUTE ILLNESS 10/03/2016 Patient Education: Patient Medication Summary Completed 10/03/2016 Visit Plan: Titrate requip to 1.5mg x 1 week Call if not helpful and will increase to 2mg qHS NO MORE nyquil at bedtime - discussed potential effects of decongestants on heart, oversedating himself, etc Will increase requip, then amitriptyline if needed to desired effect 09/04/2016 Appointment: Magda Toth [address] [place], [place] [phone] ACUTE ILLNESS 09/04/2016 Patient Education: Patient Medication Summary Completed 09/04/2016 Visit Plan: Stop requip and try elavil C ryotherapy as above See ENT for removal of right ear lesion 08/22/2016 Appointment: Lita Barakat WPtel: [address] [place] [address] ACUTE ILLNESS 08/22/2016 Patient Education: Patient Medication Summary Completed 08/22/2016 Visit Plan: Trial of requip 1mg q HS Res tart zoloft Recheck 1month 08/10/2016 Appointment: Lita Barakat WPtel: [address] [place] [address] ACUTE ILLNESS 08/10/2016 Patient Education: Patient Medication Summary Completed 08/10/2016 Visit Plan: Stop HCTZ Flagyl for diarrhe a Hydrate Discussed meds for restless legs Zofran prn Nausea 07/06/2016 Appointment: Lita Barakat WPtel: [address] [place] [address] 07/05 confirmed~ Hospital Follow Up 07/06/2016 Patient Education: Patient Medication Summary Completed 07/06/2016 Visit Plan: Reviewed with Dr Yuval Palacios sidering his recent history, instructed him to go straight to the ER called to notify her so she can meet him there 06/22/2016 Appointment: Navneet Magda [address] [place] [address] ACUTE ILLNESS 06/22/2016 Patient Education: Patient Medication Summary Completed 06/22/2016 Visit Plan: Continue current meds Prevna r 13 and High Dose Flu given 06/13/2016 Appointment: Lita Barakat WPtel: [address] [place] [address] 06/13 confirmed~ WORK IN 06/13/2016 Patient Education: Patient Medication Summary Completed 06/13/2016 Appointment: Lita Barakat WPtel: [address] [place] [address] [place] just went over current medications CANCELED 06/08/2016 Visit Plan: Reviewed POC with Dr Barakat Stat cbc, cmp, d dimer, troponin, bnp, ekg, cxr If any worsening of symptoms while awaiting results, patient instructed to go to ER or call 911 06/01/2016 Appointment: Magda Toth [address] [place], [place] [phone] ACUTE ILLNESS 06/01/2016 Patient Education: Patient Medication Summary Completed 06/01/2016 Referral: José Miguel Swanson WPtel: [address] 04/[address] swanson's office, patient [...] further eval and treatment 04/26/2016 Appointment: Magda Ttoh [address] [place] [address] ACUTE ILLNESS 04/26/2016 Patient Education: Patient Medication Summary Completed 04/26/2016 Care Plan: Referral Order SNOMED-CT : 30 0338339 Pending 04/26/2016 Visit Plan: Left ear flushed after conse nt with warm water with peroxide with ear syringe Patient tolerated well Ear exam is wnl following flushing Follow up PRN 04/05/2016 Appointment: Magda Toth [address] [place] [address] ACUTE ILLNESS 04/05/2016 Patient Education: Patient Medication Summary Completed 04/05/2016 Visit Plan: Increase Levemir to 25u sc d aily Increase sertraline to 2 full tablets daily--200mg Debrox or cerumenex to bilateral ears q HS for 3 nights then flush or fwup for fushing Check lab in 2mos then fwup 04/03/2016 Appointment: Lita Barakat WPtel: [address] [place], [place] [phone] 03/31 7/ lm ~sl FOLLOW UP 04/03/2016 Patient Education: Patient Medication Summary Completed 04/03/2016 Visit Plan: Patient informed of correct dosage of levemir and how to administer. Patient verbalizes understanding and will call if any questions/concerns. 10 Units of Levemir given in office SC to right lower abdom en. Patient tolerated well. Site without redness/irritation. 03/13/2016 Appointment: Lita Barakat WPtel: [phone] [facility] SPECIAL 03/13/2016 Patient Education: Patient Medication Summary Completed 03/13/2016 Appointment: Lita Barakat WPtel: [phone] [facility] LAB 03/06/2016 Patient Education: Patient Medication Summary Completed 03/06/2016 Visit Plan: Patient saw Dr. Chacon this week and was given prednisone taper for COPD Continue current meds Accuchecks daily Patient will return on Sunday morning for fasting lab incuding CBC, CMP, TSH, free T4, HbA1C, Lipids, Testosterone, PSA 03/02/2016 Appointment: iLta Barakat WPtel: [address] [place], [place] [phone] 03/01 confirmed ~sl FOLLOW UP 03/02/2016 Patient [...] how doing 02/17/2016 Appointment: Lita Barakat WPtel: [address] [place], [place] [phone] WORK IN 02/17/2016 Patient Education: Patient Medication Summary Completed 02/17/2016 Visit Plan: Xrays to further evaluate Alvarez spect heel spur(s) Will call with results Has had injections in the past that were helpful Dr Barakat can do them or can refer to podiatry if warranted 02/14/2016 Appointment: Magda Toth [address] [place], [place] [phone] ACUTE ILLNESS 02/14/2016 Patient Education: Patient Medication Summary Completed 02/14/2016 Visit Plan: Increase Zoloft to 150mg cooper ly 01/31/2016 Appointment: Lita Barakat WPtel: [address] [place], [place] [phone] 01/26 confirmed `sl FOLLOW UP 01/31/2016 Patient Education: Patient Medication Summary Completed 01/31/2016 Visit Plan: Decrease citalopram to 20mg q AM for 1 week then stop Start zoloft 50mg q HS for 1 week then increase to 100mg q HS 12/30/2015 Appointment: Lita Barakat WPtel: [address] [place], [place] [phone] 12/28 confirmed~sl ACUTE ILLNESS 12/30/2015 Patient Education: Patient Medication Summary Completed 12/30/2015 Visit Plan: Check Neck US 12/16/2015 Appointment: Lita Barakat WPtel: [address] [place], [place] [phone] 12/14 lm ~sl 12/15 confirmed-sp FOLLOW UP 12/16/2015 Patient Education: Patient Medication Summary Completed 12/16/2015 Care Plan: US EXAM OF HEAD AND NECK LOIN C : 01477-8 Ordered 12/16/2015 Appointment: Stephanie Rios WPtel: [address] [place], [place] [phone] 12/09 confirmed-sp 12/12 lm ~sl Patient r eturn call and stated he just plain forgot ~sl FOLLOW UP 12/13/2015 Visit Plan: Had changing lesions of fore head and left mastoid area removed earlier today. Follow-up in one week Will proceed with soft tissue ultrasound of neck/ left cervical lymph node if no improvement antibiotics Clindamycin 300mg PO TID 12/06/2015 Appointment: Stephanie Rios WPtel: [address] [place], [place] [phone] ACUTE ILLNESS 12/06/2015 Patient Education: Patient Medication Summary Completed 12/06/2015 Referral: Lisbeth Darby WPtel: [facility] [address] [facility] 11/18/15 called luther at [facility] office and confirmed time and date of appointment with patient~sl Initiated 11/18/2015 Visit Plan: Referral to Dermatology for removal of facial skin lesions Cefdinir PO bid Topical Mupirocin to skin lesions bid 11/15/2015 Appointment: Stephanie Rios WPtel: [address] [place], [place] [phone] ACUTE ILLNESS 11/15/2015 Patient Education: Patient Medication Summary Completed 11/15/2015 Visit Plan: Continue current meds Accuch ecks daily Fwup with ophthamology as scheduled Will check lab in 3mos then fwup due to recent meds that will affect blood sugar 10/05/2015 Appointment: Lita Barakat WPtel: [address] [place], [place] [phone] 10/04/15 appt confirmed cn Annual Well Visit 08/2016 Patient Education: Patient Medication Summary Completed 10/05/2015 Visit Plan: Trajenta -1 sample box given Return visit in 6 weeks for fasting labs Notify for worsening symptoms such as Increased redness, swelling, pain or drainage of Rt. knee 07/22/2015 Appointment: Stephanie Rios WPtel: [address] [place], [place] [phone] 07/21 vm left cn FOLLOW UP 07/22/2015 Patient Education: Patient Medication Summary Completed 07/22/2015 Visit Plan: Continue to change dressing twice daily and apply Mupirocin Complete Doxycycline as directed. Follow-up for worsening symptoms, such as increased swelling, redness or pain. 07/01/2015 Appointment: Stephanie Rios WPtel: [facility]6 [facility] FOLLOW UP 07/01/2015 Patient Education: Patient Medication Summary Completed 07/01/2015 Visit Plan: Pressure dressing applied to draining wound left knee. Instructed to change dressing twice daily and continue Mupirocin topical Doxycycline PO bid x 10 days Wound culture obtained. Wound tissue sent to pathology Follow-up in 3 days 06/28/2015 Appointment: Stephanie Rios WPtel: [phone] [facility] [id number] ACUTE ILLNESS 06/28/2015 Patient Education: Patient Medication Summary Completed 06/28/2015 Visit Plan: Complete antibiotics Follow- up for increased tenderness, swelling or drainage. 06/09/2015 Appointment: Gabriel Stephanie M WPtel: [address] [place], [place] [phone] 06/08/15 lm FOLLOW UP 06/09/2015 Patient Education: Patient Medication Summary Completed 06/09/2015 Visit Plan: Apply pressure dressing toda y Continue antibiotics and topical Mupirocin Follow-up in 2 days Bursa drained from open area using pressure--serosanguinous drainage 06/07/2015 Appointment: Stephanie Rios WPtel: [facility] 06/04/15 confirmed with patient FOLLOW UP 0 06/07/2015 Patient Education: Patient Medication Summary Completed 06/07/2015 Visit Plan: Wound culture Lt. knee Apply mupirocin to open wound bid Clindamycin 600 mg PO bid x 10 days Follow-up on Sunday06/03/2015 Appointment: Gabriel Stephanie M WPtel: [address] [place], [place] [phone] ACUTE ILLNESS 06/03/2015 Patient Education: Patient Medication Summary Completed 06/03/2015 Visit Plan: Accuchecks daily Check CMP, HbA1C today Patient is noncompliant with meds and diet but patient says he is doing everything he is supposed to do Wants to try performomist instead of albuterol in SVN 06/01/2015 Appointment: Lita Barakat WPtel: [address] [place], [place] [phone] 05/28 appt confirmed cn FOLLOW UP 06/01/20 Patient Education: Patient Medication Summary Completed 06/01/2015 Visit Plan: Change Breo Ellipta to Advai r 500/50 1 p BID this next month Continue turdoza Use albuterol prn Check CMP, HbA1C today Accuchecks daily Cryotherapy as above 02/25/2015 Appointment: Lita Barakat WPtel: [address] [place], [place] [phone] 02/24 appt confirmed and explained needed payment he said ok FOLLOW UP 02/25/2015 Patient Education: Patient Medication Summary Completed 02/25/2015 Referral: Lopez Chacon [address] C&D [id number] [place] Will put patient on cancellation list Initiated 12/08/2014 Appointment: Lita Barakat WPtel: [address] [place], [place] [phone] [place] [address] Follow Up 10/29/2014 Visit Plan: Finish prednisone Continue S VNs with albuterol QID See pulmonology and start Pulmonary rehab Once again discussed taking it easy this winter--that he is high risk for exacerbation 10/27/2014 Appointment: Lita Barakat WPtel: [address] [place] [address] FOLLOW UP 10/27/2014 Patient Education: Patient Medication Summary Completed 10/27/2014 Appointment: Lita Barakat WPtel: [address] [place] [address] FOLLOW UP 10/26/2014 Appointment: Stephanie Rios WPtel: [address] [place], [place] [phone] WORK IN 10/21/2014 Patient Education: Patient Medication Summary Completed 10/21/2014 Patient Education: Patient Medication Summary Completed 10/19/2014 Visit Plan: Continue oxygen and SVNS wit h duoneb Increase farxiga to 10mg daily Diflucan 100mg daily for 1week 10/06/2014 Appointment: Lita Barakat WPtel: [address] [place], [place] [phone] [facility] appt time to 2:45pm FOLLOW UP 2014 Patient Education: Patient Medication Summary Completed 10/06/2014 Visit Plan: Finish omnicef Continue Breo BID and Turdoza Use SVNS with duoneb at least TID for next 2weeks then go to prn 09/21/2014 Appointment: Lita Barakat WPtel: [address] [place], [place] [phone] Hospital Follow Up 09/21/2014 Patient Education: Patient Medication Summary Completed 09/21/2014 Patient Education: [facility] - Saving [employer] - Ventolin HFA - 18+ - Dynamic Portal ID Completed 09/21/2014 Appointment: Stephanie Rios WPtel: [address] [place], [place] [phone] Scheduled by 09/07 patient rescheduled to 09/08 with Stephanie. Hospital Follow Up 09/08/2014 Patient Education: Patient Medication Summary Completed 09/08/2014 Appointment: Stephanie Rios WPtel: [address] [place], [place] [phone] FOLLOW UP 09/02/2014 Patient Education: Patient Medication Summary Completed 09/02/2014 Patient Education: [employer] - Antibi otics, Analgesics 18+, Oral Contraceptives F 18+ Completed 09/02/2014 Appointment: Lita Barakat WPtel: [address] [place], [place] [phone] UA 08/27/2014 Patient Education: Patient Medication Summary [...] sleep 08/10/2014 Appointment: Lita Barakat WPtel: [address] [place], [place] [phone] Annual Well Visit 08/10/2014 Patient Education: Patient Medication Summary Completed 08/10/2014 Appointment: Lita Barakat WPtel: [address] [place], [place] [phone] LAB 08/05/2014 Patient Education: Patient Medication Summary Completed 08/05/2014 Visit Plan: ECHO results reviewed Contin ue Breo and Turdoza Pt starts PT this afternoon for back--has had one epidural with no help in pain 05/05/2014 Appointment: Lita Barakat WPtel: [address] [place] [address] FOLLOW UP 05/05/2014 Patient Education: Patient Medication Summary Completed 05/05/2014 Visit Plan: Continue Breo and Turdoza Camargo s heart tests scheduled next week Will see surgeon for removal of skin cancer to neck after done with cardiac workup 03/24/2014 Appointment: Lita Barakat WPtel: [address] [place] [address] FOLLOW UP 03/24/2014 Patient Education: Patient Medication Summary Completed 03/24/2014 Visit Plan: Proceed with cardiology eval uation as patient is has numerous risk factors for CAD Change Symbicort to Breo 1p BID and add Turdorza 1p BID Recheck in weeks Check 2-D ECHO and lexiscan 03/10/2014 Appointment: Lita Barakat WPtel: [address] [place] [address] FOLLOW UP 03/10/2014 Patient Education: Patient Medication Summary Completed 03/10/2014 Visit Plan: Shoulder injection as above Back brace to use when doing any lifting for stability 12/16/2013 Appointment: Lita Barakat WPtel: [address] [place] [address] ACUTE ILLNESS 12/16/2013 Patient Education: Patient Medication Summary Completed 12/16/2013 Visit Plan: Continue symbicort and Turdo za Salt water gargles Omnicef 300mg 2 po daily for 1wk Phenergan with codeine 10/09/2013 Appointment: Lita Barakat WPtel: [address] [place], [place] [phone] WORK IN 10/09/2013 Patient Education: Patient Medication Summary Completed 10/09/2013 Appointment: Ruchi Buchanan WPtel: [address] [place], [place] [phone] ACUTE ILLNESS 09/18/2013 Patient Education: Patient Medication Summary Completed 09/18/2013 Visit Plan: Check on repeat CXR Finish a bx Start Tradjenta to replace metformin 08/13/2013 Appointment: Lita Barakat WPtel: [address] [place], [place] [phone] 08/12 Hospital Follow Up 08/13/2013 Patient Education: Patient Medication Summary Completed 08/13/2013 Visit Plan: Admit to hospital 08/06/2013 Appointment: Stephanie Rios WPtel: [address] [place] [address] ACUTE ILLNESS 08/06/2013 Patient Education: Patient Medication Summary Completed 08/06/2013 Visit Plan: Continue current meds Contin ue accuchecks daily Proceed with stress test due to high risk for CAD 07/16/2013 Appointment: Lita Barakat WPtel: [address] [place] [address] FOLLOW UP 07/16/2013 Patient Education: Patient Medication Summary Completed 07/16/2013 Appointment: Lita Barakat WPtel: [address] [place] [address] LAB 06/25/2013 Patient Education: Patient Medication Summary Completed 06/25/2013 Visit Plan: prednisone and azithromycin. Doing CBC and mycoplasma blood draw. Will continue inhaler and albuterol breathing treatments. 04/09/2013 Appointment: Kimberly Villalba WPtel: [address] [place], [place] [phone] ACUTE ILLNESS 04/09/2013 Patient Education: Patient Medication Summary Completed 04/09/2013 Appointment: Lita Barakat WPtel: [address] [place], [place] [phone] ACUTE ILLNESS 02/11/2013 Patient Education: Patient Medication Summary Completed 02/11/2013 Appointment: Ruchi Buchanan WPtel: [address] [place] [address] ACUTE ILLNESS 01/31/2013 Patient Education: Patient Medication Summary Completed 01/31/2013 Visit Plan: Cefdinir and medrol dose pac k. Codeine/guiaf cough syrup. Has colonoscopy on Sunday. Pt. is to notify if fever occurs or symptoms worsen. Hydration and rest. 01/20/2013 Appointment: Kimberly Villalba WPtel: [address] [place] [address] ACUTE ILLNESS 01/20/2013 Patient Education: Patient Medication Summary Completed 01/20/2013 Visit Plan: Scopalamine patch and vestib ular exercises 12/19/2012 Appointment: Lita Barakat WPtel: [address] [place] [address] ACUTE ILLNESS 12/19/2012 Patient Education: Patient Medication Summary Completed 12/19/2012 Visit Plan: Dr. Swanson consult if no impr ovement in hearing. Pt. reports he will notify if no better in one week. Willam consult for skin lesion. 10/21/2012 Appointment: Kimberly Villalba WPtel: [address] [place] [address] ACUTE ILLNESS 10/21/2012 Patient Education: Patient Medication Summary Completed 10/21/2012 Appointment: Lita Barakat WPtel: [address] [place], [place] [phone] [place] LAB 09/19/2012 Patient Education: Patient Medication Summary Completed 09/19/2012 Visit Plan: Check fasting lab in AM--CMP , Lipids, HbA1C 09/18/2012 Appointment: Lita Barakat WPtel: [address] [place] [address] FOLLOW UP 09/18/2012 Patient Education: Patient Medication Summary Completed 09/18/2012 Appointment: Lita Barakat WPtel: [address] [place] [address] appt time scheduled sooner FOLLOW UP 09/05 Visit Plan: Doxycycline and Prednisone I ncrease SVN to QID Add back Symbicort 160/4.5 2 p BID 08/28/2012 Appointment: Lita Barakat WPtel: [address] [place], [place] [phone] [place] FOLLOW UP 08/28/2012 Patient Education: Patient Medication Summary Completed 08/28/2012 Appointment: Lita Barakat WPtel: [address] [place] [address] Annual Well Visit 07/10/2012 Patient Education: Patient Medication Summary Completed 07/10/2012 Visit Plan: Finish Z-pack Add Nasonex Ad d Meclizine Vestibular exercises Continue current meds and accuchecks Check lab and fwup in 4mos 05/09/2012 Appointment: Lita Barakat WPtel: [address] [place] [address] number no longer works FOLLOW UP 2 Patient Education: Patient Medication Summary Completed 05/09/2012 Appointment: Lita Barakat WPtel: [address] [place], [place] [phone] LAB 05/06/2012 Patient Education: Patient Medication Summary Completed 05/06/2012 Appointment: Lita Barakat WPtel: [address] [place] [phone] [place] LAB 05/02/2012 Appointment: Lita Barakat WPtel: [address] [place] [phone] [place] INJECTION 02/05/2012 Patient Education: Patient Medication Summary Completed 02/05/2012 Visit Plan: cefdinir. Will focus on rest and fluids. Pt. reports he is using breathing treatments as needed. Pt. will monitor for worsening symptoms or fever. 10/02/2011 Appointment: Kimberly Villalba WPtel: [address] [place], [place] [phone] ACUTE ILLNESS 10/02/2011 Patient Education: Patient Medication Summary Completed 10/02/2011 Appointment: Lita Barakat WPtel: [address] [place], [place] [id number] [place] INJECTION 08/10/2011 Patient Education: Patient Medication Summary Completed 08/10/2011 Visit Plan: Continue current meds Restar t Advair Restart exercise Flu shot given 08/07/2011 Appointment: Lita Barakat WPtel: [address] [place] [phone] [place] FOLLOW UP 08/07/2011 Patient Education: Patient Medication Summary Completed 08/07/2011 Appointment: Lita Barakat WPtel: [address] [place] [phone] [place] LAB 07/26/2011 Patient Education: Patient Medication Summary Completed 07/26/2011 Visit Plan: ALEKSANDER Carmen Continue Metformin but change to BID Add Lantus 25u sc q PM BS readings in 1wk 04/03/2011 Appointment: Lita Barakat WPtel: [address] [place], [place] [phone] ACUTE ILLNESS 04/03/2011 Patient Education: Patient Medication Summary Completed 04/03/2011 Appointment: Lita Baarkat WPtel: [address] [place] [phone] [place] INJECTION 01/19/2011 Patient Education: Patient Medication Summary Completed 01/19/2011 Appointment: Lita Barakat WPtel: [address] [place] [phone] ACUTE ILLNESS 01/18/2011 Patient Education: Patient Medication Summary Completed 01/18/2011 Appointment: Lita Barakat WPtel: [address] [place] [phone] [place] INJECTION 12/21/2010 Patient Education: Patient Medication Summary Completed 12/21/2010 Appointment: Lita Barakat WPtel: [address] [place] [phone] [place] FOLLOW UP 12/19/2010 Patient Education: Patient Medication Summary Completed 12/19/2010 Appointment: Lita Barakat WPtel: [address] [place] [phone] [place] LAB 12/07/2010 Patient Education: Patient Medication Summary Completed 12/07/2010 Appointment: Kimberly Villalba WPtel: [address] [place], [place] [phone] ACUTE ILLNESS 04/05/2010 Patient Education: Patient Medication Summary Completed 04/05/2010 Appointment: Lita Barakat WPtel: [address] [place] [phone] WORK IN 03/14/2010 Patient Education: Patient Medication Summary Completed 03/14/2010 Appointment: Lita Barakat WPtel: [address] [place] [phone] [place] LAB 03/02/2010 Visit Plan: HbA1C in 3mos. Continue Accu checks BID alternating times. Switch lexapro to celexa 01/13/2010 Appointment: Lita Barakat WPtel: [address] [place] [address] FOLLOW UP 01/13/2010 Patient Education: Patient Medication Summary Completed 01/13/2010 Appointment: Lita Barakat WPtel: [address] [place], [place] [phone] [place] FOLLOW UP 01/11/2010 Visit Plan: Pt. will continue the Avalox and Doxycycline regimen as prescribed the previous day. He has been advised to continue inhalers, breathing treatments and oxygen therapy for at least the weekend. Moderate activity without strenuous exercise. The pt. will seek immediate re-eval if his symptoms worsen. 12/23/2009 Appointment: Kimberly Villalba WPtel: [address] [place], [place] [phone] [place] FOLLOW UP 12/23/2009 Patient Education: Patient [...] tomorrow morning. 12/22/2009 Appointment: Kimberly Villalba WPtel: [address] [place] [address] ACUTE ILLNESS 12/22/2009 Patient Education: Patient Medication Summary Completed 12/22/2009 Appointment: Kimberly Villalba WPtel: [address] [place] [address] FOLLOW UP 12/21/2009 Appointment: Lita Barakat WPtel: [address] [place] [address] INJECTION 12/16/2009 Patient Education: Patient Medication Summary Completed 12/16/2009 Appointment: Kimberly Villalba WPtel: [address] [place] [address] ACUTE ILLNESS 12/13/2009 Patient Education: Patient Medication Summary Completed 12/13/2009 Care Plan: X-RAY EXAM OF SHOULDER lt shoulder (pain ra diates across the shoulder) Hand carried orders to [facility] LOINC : 30778-7 Ordered 12/13/2009 Care Plan: X-RAY EXAM THORAC SPINE 2VWS Hand carried order LOINC : 24319-8 Ordered 12/13/2009 Care Plan: X-RAY EXAM RIBS UNI 2 VIEWS Posterior ribs of lt. side Pt. hand carries order to [facility] LOINC : 19242-3 Ordered 12/13/2009 Referral: José Miguel Swanson WPtel: [address] [address] [place] Referral Appointment Requested Referral: José Miguel Swanson WPtel: [address] [address] [place] Referral Appointment Requested Referral: Chandu Quarles WPtel: [address] Quarles for screening colonoscopy. Diane gerber notified that [place] office will book appt with him Initiated Referral: Santosh Machado WPtel: [address] [facility] [address] [place] [address] [place] Referral Appointment Requested Referral: José Miguel Swanson WPtel: [address] [address] [place] Referral Initiated Referral: Lopez Chacon [facility] C&D [address] Referral Initiated Referral: Demetrius Benjamin WPtel: [address] [address] [place] Referral Appointment Requested Referral: José Miguel Swanson WPtel: [address] [address] [place] Referral Appointment Requested Referral: José Miguel Swanson WPtel: [address] [address] [place] Referral Initiated Instructions Comment . Saline [...]
--- NOTE | 2020-03-28 15:51 | ED Respiratory ---
General Chief Complaint: Respiratory Problems Stated Complaint: SOB Source: patient Exam Limitations: clinical condition (short of air) History of Present Illness Date Seen by Provider: Mar 28, 2020 Time Seen by Provider: 15:30 Initial Comments Aggressive shortening of breath over the last 1-2 days. No fevers chills. He's had productive cough. He quit smoking 20 years ago. He is oxygen-dependent with COPD. He has frequent COPD exacerbations. He has not taken any antipyretics. He does follow Dr. Lainez and has a history of cardiac stents. He is not having any chest pain nausea chills malaise or weakness. No known sick contacts. He does not leave his house. No abdominal pain, diarrhea, loss of taste or dysuria. Allergies and Home Medications Allergies Coded Allergies: hydrocodone (Verified Allergy, Mild, NAUSEA, 07/25/19) oxycodone (Verified Allergy, Mild, NAUSEA, 07/25/19) Home Medications Acetaminophen 500 Mg Tablet, 1,000 MG PO Q8H PRN for PAIN-MILD (1-4), (Reported) Ascorbic Acid 250 Mg Tab, 250 MG PO DAILY, (Reported) Aspirin 81 Mg Tablet.dr, 81 MG PO DAILY, (Reported) Budesonide/Formoterol Fumarate 10.2 Gm Hfa.aer.ad, 2 PUFF IH BID, (Reported) Carbidopa/Levodopa 1 Each Tablet.er, 1 TAB PO TID, (Reported) Cholecalciferol (Vitamin D3) 25 Mcg Capsule, 25 MCG PO DAILY, (Reported) Hydrocodone Bit/Acetaminophen 1 Each Tablet, 1 EA PO Q4H PRN for PAIN-MODERATE (5-7), (Reported) Insulin Detemir 100 Unit/1 Ml Insuln.pen, 20 UNITS SC HS, (Reported) Ipratropium/Albuterol Sulfate 3 Ml Ampul.neb, 3 ML NEB Q4H PRN for SHORTNESS OF BREATH, (Reported) Losartan Potassium 100 Mg Tablet, 100 MG PO DAILY, (Reported) Pantoprazole Sodium 40 Mg Tablet.dr, 40 MG PO DAILY, (Reported) Ropinirole HCl 4 Mg Tablet, 12 MG PO HS PRN for RESTLESS LEGS, (Reported) TAKES 3 (4MG) TABLETS Vit B Comp/C/FA/Iron/Vit E 1 Each Tablet, 1 EACH PO DAILY, (Reported) Patient Home Medication List Home Medication List Reviewed: Yes Review of Systems Review of Systems Constitutional: No chills, No diaphoresis EENTM: No ear discharge, No ear pain Respiratory: cough, phlegm, short of breath; No wheezing Cardiovascular: No chest pain, No edema; Hx of Intervention; No palpitations, No syncope; vascular heart diseas Gastrointestinal: No abdominal pain, No constipation, No diarrhea, No nausea Genitourinary: No discharge, No dysuria Musculoskeletal: No back pain, No joint pain Skin: No pruritus, No rash Psychiatric/Neurological: Denies Headache, Denies Numbness All Other Systems Reviewed Negative Unless Noted: Yes Past Gqgcejv-Uolqlz-Gwxhrc Hx Patient Social History Alcohol Use: Occasionally Uses Alcohol Beverage of Choice: Beer Recreational Drug Use: No Smoking Status: Former Smoker Type Used: Cigars, Cigarettes Former Smoker, Quit: May 25, 1996 2nd Hand Smoke Exposure: Yes Recent Foreign Travel: No Contact w/Someone Who Travel: No Recent Hopitalizations: No Immunizations Up To Date Tetanus Booster (TDap): Unknown PED Vaccines UTD: No Date of Pneumonia Vaccine: Sep 25, 2018 Date of Influenza Vaccine: Sep 25, 2018 Seasonal Allergies Seasonal Allergies: No Past Medical History Surgeries: Yes (CATARACTS;R KNEE SCOPE; SKIN CANCERS REMOVED;CARDIAC CATHS- STENTS X 5) Cardiac, Coronary Stent, Eye Surgery, Orthopedic Respiratory: Yes (O2 4L NC) Sleep Apnea, COPD Currently Using CPAP: Yes Currently Using BIPAP: No Cardiac: Yes (CARDIAC CATHS-STENTS X 5) Coronary Artery Disease, Heart Attack, High Cholesterol, Hypertension Neurological: Yes Parkinson's Disease Reproductive Disorders: No Sexually Transmitted Disease: No HIV/AIDS: No Genitourinary: No Gastrointestinal: Yes Gastroesophageal Reflux Musculoskeletal: Yes (CHRONIC RIGHT KNEE PAIN ; RIGHT KNEE SCOPE) Arthritis, Fractures Endocrine: Yes Diabetes, Insulin dep HEENT: Yes (BILATERAL CATARACT SURGERY; TEETH REMOVED) Cataract Loss of Vision: Bilateral Hearing Impairment: Hard of Hearing Cancer: Yes Skin Did You Recieve Any Treatments: Yes What Type of Treatment Did You: Surgical Intervention Psychosocial: Yes Anxiety Integumentary: Yes (ACTINIC KERATOSIS, SKIN CANCER) Eczema Blood Disorders: No Adverse Reaction/Blood Tranf: No Family Medical History Cancer 09 BROTHER Cancer of colon 09 BROTHER Cataract 03 MOTHER Chest pain 03 MOTHER Congenital heart disease 03 FATHER Congestive heart failure 03 FATHER Family history: Cardiovascular disease 03 FATHER 03 MOTHER Family history: Diabetes mellitus 03 FATHER Family history: Gastrointestinal disease 03 MOTHER Family history: Hypertension 03 MOTHER Hearing loss 03 FATHER Heart disease 03 FATHER History of - respiratory disease 03 FATHER Kidney disease 03 FATHER Myocardial infarction 03 FATHER Stroke 03 FATHER No Family History of: Abdominal aortic aneurysm [place]'s disease Alcoholism Aphasia Cystic fibrosis Dementia Dysphagia Family history: Allergy Family history: Alzheimer's disease Family history: Arthritis Family history: Asthma Family history: Breast disease Family history: Coronary thrombosis Family history: Glaucoma Family history: Osteoporosis Family history: Thyroid disorder Headache Hereditary disease History of - anemia History of - disorder History of drug abuse Human immunodeficiency virus (HIV) seropositivity Hypercholesterolemia Infertile Malignant neoplasm of lung Parkinson's disease Prostate cancer Psychotic disorder Seizure disorder Tuberculosis Visual impairment Physical Exam Vital Signs - First Documented 03/28/20 15:30 Temp 36.6 Pulse 76 Resp 28 B/P (MAP) 156/78 (104) Pulse Ox 88 O2 Delivery Nasal Cannula O2 Flow Rate 5.00 Capillary Refill : Height: 6'0.00" Weight: 204lbs. 9.0oz. [id number]; 24.60 BMI Method:Stated General Appearance: moderate distress; No WD/WN Eyes: Bilateral Eye Normal Inspection, Bilateral Eye PERRL, Bilateral Eye EOMI HEENT: PERRL/EOMI, normal ENT inspection, pharynx normal Neck: full range of motion, supple, normal inspection Respiratory: lungs clear, normal breath sounds, no respiratory distress, no accessory muscle use Cardiovascular: normal peripheral pulses, regular rate, rhythm Gastrointestinal: normal bowel sounds, non tender, soft Extremities: normal range of motion, non-tender, normal capillary refill Neurologic/Psychiatric: no motor/sensory deficits, alert, normal mood/affect, oriented x 3 Skin: normal color, warm/dry, other (dressed wound over his right wrist from recent skin lesion excision) Focused Exam Lactate Level 03/28/20 15:42: Lactic Acid Level 0.97 Lactic Acid Level Laboratory Tests Test 03/28/20 15:42 Lactic Acid Level 0.97 MMOL/L (0.50-2.00) Progress/Results/Core Measures Suspected Sepsis SIRS Temperature: Pulse: Respiratory Rate: Laboratory Tests 03/28/20 15:34: White Blood Count 5.4 Blood Pressure / Mean: 03/28/20 15:42: Lactic Acid Level 0.97 Laboratory Tests 03/28/20 15:34: Creatinine 1.01, INR Comment 0.9, Platelet Count 168, Total Bilirubin 0.3 Results/Orders Lab Results Laboratory Tests Test 03/28/20 15:34 03/28/20 15:42 Range/Units White Blood Count 5.4 4.3-11.0 10^3/uL Red Blood Count 3.98 L 4.35-5.85 10^6/uL Hemoglobin 12.3 L 13.3-17.7 G/DL Hematocrit 37 L 40-54 % Mean Corpuscular Volume 94 80-99 FL Mean Corpuscular Hemoglobin 31 25-34 PG Mean Corpuscular Hemoglobin Concent 33 32-36 G/DL Red Cell Distribution Width 14.2 10.0-14.5 % Platelet Count 168 130-400 10^3/uL Mean Platelet Volume 9.5 7.4-10.4 FL Neutrophils (%) (Auto) 69 42-75 % Lymphocytes (%) (Auto) 13 12-44 % Monocytes (%) (Auto) 15 H 0-12 % Eosinophils (%) (Auto) 3 0-10 % Basophils (%) (Auto) 0 0-10 % Neutrophils # (Auto) 3.7 1.8-7.8 X 10^3 Lymphocytes # (Auto) 0.7 L 1.0-4.0 X 10^3 Monocytes # (Auto) 0.8 0.0-1.0 X 10^3 Eosinophils # (Auto) 0.2 0.0-0.3 10^3/uL Basophils # (Auto) 0.0 0.0-0.1 10^3/uL Prothrombin Time 12.5 12.2-14.7 SEC INR Comment 0.9 0.8-1.4 Activated Partial Thromboplast Time 24 24-35 SEC Sodium Level 140 135-145 MMOL/L Potassium Level 4.1 3.6-5.0 MMOL/L Chloride Level 103 98-107 MMOL/L Carbon Dioxide Level 27 21-32 MMOL/L Anion Gap 10 5-14 MMOL/L Blood Urea Nitrogen 23 H 7-18 MG/DL Creatinine 1.01 0.60-1.30 MG/DL Estimat Glomerular Filtration Rate > 60 BUN/Creatinine Ratio 23 Glucose Level 145 H 70-105 MG/DL Calcium Level 9.0 8.5-10.1 MG/DL Corrected Calcium 8.8 8.5-10.1 MG/DL Magnesium Level 2.2 1.6-2.4 MG/DL Total Bilirubin 0.3 0.1-1.0 MG/DL Aspartate Amino Transf (AST/SGOT) 12 5-34 U/L Alanine Aminotransferase (ALT/SGPT) < 6 0-55 U/L Alkaline Phosphatase 57 40-136 U/L Troponin I < 0.028 <0.028 NG/ML Total Protein 6.8 6.4-8.2 GM/DL Albumin 4.2 3.2-4.5 GM/DL Blood Gas Puncture Site L.RADIAL Blood Gas Patient Temperature 97.8 Arterial Blood pH 7.38 7.37-7.43 Arterial Blood Partial Pressure CO2 52 H 35-45 MMHG Arterial Blood Partial Pressure O2 46 L 79-93 MMHG Arterial Blood HCO3 30 H 23-27 MMOL/L Arterial Blood Total CO2 31.2 H 21.0-31.0 MMOL/L Arterial Blood Oxygen Saturation 75 L 94-100 % Arterial Blood Base Excess 4.6 H -2.5-2.5 MMOL/L Ahsan Test YES Blood Gas Ventilator Setting NO Blood Gas Inspired Oxygen 6 L. Lactic Acid Level 0.97 0.50-2.00 MMOL/L My Orders Orders - JOSE KATZ Arterial Blood Gas (03/28/20 15:42) Cbc With Automated Diff (03/28/20 15:42) Comprehensive Metabolic Panel (03/28/20 15:42) Blood Culture (03/28/20 15:42) Sputum Culture (03/28/20 15:42) Urinalysis (03/28/20 15:42) Urine Culture (03/28/20 15:42) Protime With Inr (03/28/20 15:42) Partial Thromboplastin Time (03/28/20 15:42) Chest 1 View, Ap/Pa Only (03/28/20 15:42) Ed Iv/Invasive Line Start (03/28/20 15:42) Ed Iv/Invasive Line Start (03/28/20 15:42) Ekg Tracing (03/28/20 15:42) Troponin I (03/28/20 15:42) Vital Signs Adult Sepsis Patie Q15M (03/28/20 15:42) O2 (03/28/20 15:42) Remove Rings In Anticipation O (03/28/20 15:42) Lactic Acid Analyzer (03/28/20 15:42) Lactated Ringers (Lr 1000 Ml Iv Solution (03/28/20 15:42) Albuterol/Ipra Inhalation Soln (Duoneb I (03/28/20 15:45) Methylprednisolone Sod Succ (Solu-Medrol (03/28/20 15:42) Svn Small Volume Nebulizer (03/28/20 15:42) Magnesium (03/28/20 15:44) Medications Given in ED Current Medications Medications Dose Ordered Sig/Regino Route Start Time Stop Time Status Last Admin Dose Admin Albuterol/ Ipratropium 3 ml ONCE ONCE INH 03/28/20 15:45 03/28/20 15:46 DC 03/28/20 16:29 3 ML Lactated Ringer's 1,000 ml @ 0 mls/hr Q0M ONCE IV 03/28/20 15:42 03/28/20 15:45 DC 03/28/20 15:56 1,000 MLS/HR Vital Signs/I&O 03/28/20 03/28/20 15:30 15:45 Temp 36.6 Pulse 76 73 Resp 28 20 B/P (MAP) 156/78 (104) Pulse Ox 88 100 O2 Delivery Nasal Cannula O2 Flow Rate 5.00 40.00 Capillary Refill : Progress Note : Time: 15:51 Progress Note Steroids, fluids, chest x-ray, DuoNeb, ABG and put him on BiPAP. He is much more comfortable on 15/5-40% with oxygen saturation 100%. When he arrived he was down to about 88% on 5 L. He usually lives around 2 L on nasal cannula. The patient has tachypnea but no other serious criteria yet. If he does develop some serous criteria and the suspicion for a pneumonia exists then we will finish giving him IV fluids and antibiotics. For now we will treat this like one of his many frequent COPD exacerbations. The patient is not on any beta blockers or chronotropic drugs that might mask tachycardia. ECG Initial ECG Impression Date: Mar 28, 2020 Initial ECG Impression Time: 15:50 Initial ECG Rate: 74 Initial ECG Rhythm: Normal Sinus Initial ECG Intervals: Normal Initial ECG Impression: Normal Comment Normal sinus rhythm with PVC. No clinically relevant ST elevation or depression. Diagnostic Imaging Diagonstic Imaging: Xray Plain Films/CT/US/NM/MRI: chest (1v) Comments [facility] [place], [place] NAME: DEVIN [facility] REC#: [id number] PT STATUS: ADM Katya : 1940 PHYSICIAN: JOSE KATZ MD ADMIT DATE: 03/28/20/4TH Signed Date of Exam:03/28/20 CHEST 1 VIEW, AP/PA ONLY INDICATION: Short of air. EXAMINATION: Upright portable chest was obtained. FINDINGS: Normal heart size and vascularity. The lungs are clear. There is no effusion or pneumothorax. There is no bony abnormality. IMPRESSION: No acute abnormality is seen with no change from 4:43. Dictated by: Dictated on workstation # [id number] Dict: 03/28/20 1621 Trans: 03/28/20 1635 [facility] [id number] Interpreted by: ROBERTO CARLOS CAMPOS MD Electronically signed by: ROBERTO CARLOS CAMPOS MD 03/28/20 1635 Reviewed: Reviewed by Me Departure Communication (Admissions) Time/Spoke to Admitting Phy: 16:20 Discussed the case with Dr. Morillo and he agrees with observing the patient on the floor on BiPAP overnight and steroids 40 mg IV Medrol every 6 hours. Impression Primary Impression: COPD exacerbation Disposition: ADMITTED INPATIENT Condition: Stable Admissions Decision to Admit Reason: Admit from ER (General) Decision to Admit/Date: Mar 28, 2020 Time/Decision to Admit Time: 16:10 Departure-Patient Inst. Referrals: YVETTE JACKMAN DO (PCP/Family) Primary Care Physician JOSE KATZ Mar 28, 2020 15:51
--- OUTSIDE RECORDS SUMMARY | 2020-03-28 15:52 | XMS REPORT | CCD ---
Author Author Leandro Barakat D.O. Organization LITA BARAKAT DO [facility] Address [address] [place] [address] Phone Care Team Providers Care Instructional Coach Name Role Phone Lita Barakat D.O., PP Unavailable CCM Unavailable Summary Purpose Interface Exchange Insurance Providers Payer name Policy type / Coverage type Covered constitution party ID Effective Begin Date Effective End Date [employer] MEDICARE Medicare Part B [id number] 2019 Unknown Family history Brother Diagnosis Age At Onset Cancer Unknown Father Diagnosis Age At Onset Heart disease Unknown Mother Diagnosis Age At Onset Heart disease Unknown Social History Social History Element Codes Description Effective Dates Tobacco history SNOMED CT: 1559641 Former smoker quit 15 years ago 08/07/2011 [...] R07.9 06/22/2016 Active 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: [...] unit/mL (3 mL) sub cutaneous pen RxNorm: 980781 INJECT 20 UNITS SQ QD 02/26/2020 03/21/2020 Active losartan 100 mg tablet RxNorm: 505885 1TD 02/03/2020 05/02/2020 Active Sinemet CR 50 mg-200 mg tablet,extended release RxNorm: 8343 41 1 Tablet(s) Oral three times a day 02/02/2020 07/31/2020 Active Generic For:*S INEMET CR 50/200 TABLET SA 07/08/2018 3:09:11 PM hydrocodone 10 mg-acetaminophen 325 mg tablet RxNorm: 624622 1 Tablet(s) Oral Q4H as needed for pain 01/29/2020 No Stop Date Active ipratropium 0.5 mg-albuterol 3 mg (2.5 mg base)/3 mL n ebulization soln RxNorm: 7005182 USE 1 VIAL IN NEBULIZER Q4H (THIS REPLACES ALBUTEROL S OLUTION) 01/08/2020 02/06/2020 Inactive prednisone 20 mg tablet RxNorm: 572222 1 Tablet(s) Oral two remy es a day 12/25/2019 01/01/2020 Inactive Levemir FlexTouch U-100 Insulin 100 unit/mL (3 mL) sub cutaneous pen RxNorm: 854096 10 Unit(s) Subcutaneous every night at bedtime 12/22/2019 N o Stop Date Active baclofen 10 mg tablet RxNorm: 916341 1 Tablet(s) Oral QPM for p ain/spasm 12/22/2019 01/21/2020 Inactive ipratropium 0.5 mg-albuterol 3 mg (2.5 mg base)/3 mL n ebulization soln RxNorm: 1417290 USE 1 VIAL IN NEBULIZER Q4H (THIS REPLACES ALBUTEROL S OLUTION) 11/27/2019 12/16/2019 Inactive hydrocodone 10 mg-acetaminophen 325 mg tablet RxNorm: 049967 1 Tablet(s) Oral Q4H as needed for pain 11/13/2019 01/28/2020 Inactive Seroquel 50 mg tablet RxNorm: 976491 1 Tablet(s) Oral QPM as ne eded for sleep 10/07/2019 12/21/2019 Inactive ropinirole 4 mg tablet RxNorm: 987892 3 TABLET(S) BY [facility] DAILY AT BEDTIME FOR RESTLESS LEGS 09/29/2019 12/27/2019 Inactive Generic For:REQU IP 4 MG TABLET 09/29/2019 7:52:42 AM N O T I C E Last quantity doesn't match original quantity ropinirole 4 mg tablet RxNorm: 180528 3 TABLET(S) BY [facility] DAILY AT BEDTIME FOR RESTLESS LEGS 09/26/2019 09/28/2019 Inactive Generic For:REQU IP 4 MG TABLET 09/26/2019 9:08:48 AM N O T I C E Last quantity doesn't match original quantity ipratropium 0.5 mg-albuterol 3 mg (2.5 mg base)/3 mL n ebulization soln RxNorm: 6492582 USE 1 VIAL IN NEBULIZER EVERY FOUR HOURS (THIS REPLACES ALBUTEROL SOLUTION) 09/26/2019 10/15/2019 Inactive Generic For:*DUO NEB 2.5-0.5 MG/3 ML SOLN 09/26/2019 9:08:53 AM hydrocodone 10 mg-acetaminophen 325 mg tablet RxNorm: 792799 1 Tablet(s) Oral Q4H as needed for pain 09/09/2019 09/09/2019 Inactive hydrocodone 10 mg-acetaminophen 325 mg tablet RxNorm: 944889 1 Tablet(s) Oral Q4H as needed for pain 09/09/2019 09/08/2019 Inactive ondansetron HCl 4 mg tablet RxNorm: 327280 1 Tablet(s) Oral QPM for nausea 08/12/2019 10/10/2019 Inactive ipratropium 0.5 mg-albuterol 3 mg (2.5 mg base)/3 mL n ebulization soln RxNorm: 7056903 1 Unit Dose INH Q4H 08/12/2019 09/25/2019 Inactive replaces albuterol solution Augmentin 875 mg-125 mg tablet RxNorm: 949040 1 Tablet(s) Oral two times a day 08/07/2019 08/17/2019 Inactive prednisone 20 mg tablet RxNorm: 401441 1 Tablet(s) Oral QD 08/05/2008/04/2019 Inactive prednisone 20 mg tablet RxNorm: 460271 1 Tablet(s) Oral QD 08/05/2008/06/2019 Inactive Levaquin 500 mg tablet RxNorm: 242049 1 Tablet(s) Oral QD Replaces azithromycin (z-pack) 07/31/2019 08/05/2019 Inactive Levaquin 500 mg tablet RxNorm: 269092 1 Tablet(s) Oral QD Replaces azithromycin (z-pack) 07/21/2019 07/26/2019 Inactive Levaquin 500 mg tablet RxNorm: 576619 1 Tablet(s) Oral QD Replaces azithromycin (z-pack) 07/21/2019 07/20/2019 Inactive Zithromax Z-Gui 250 mg tablet RxNorm: 743744 Tablet(s) Oral 019 07/22/2019 Inactive Zithromax Z-Gui 250 mg tablet RxNorm: 962396 Tablet(s) Oral 07/15/2019 Inactive Symbicort 160 mcg-4.5 mcg/actuation HFA aerosol inhaler RxNo rm: 6407516 2 Puff(s) Inhalation two times a day 07/14/2019 07/14/2019 Inactive Tessalon Perles 100 mg capsule RxNorm: 268308 1 Capsule(s) Oral Q8H as needed 07/14/2019 08/06/2019 Inactive Seroquel 50 mg tablet RxNorm: 665369 1 Tablet(s) Oral QPM as ne eded for sleep 07/01/2019 10/06/2019 Inactive ondansetron HCl 4 mg tablet RxNorm: 164229 1 Tablet(s) Oral QPM for nausea 06/24/2019 07/24/2019 Inactive Seroquel 25 mg tablet RxNorm: 208379 1 Tablet(s) Oral every nig ht at bedtime 06/19/2019 06/18/2019 Inactive Seroquel 25 mg tablet RxNorm: 109659 1 Tablet(s) Oral every nig ht at bedtime 06/19/2019 06/30/2019 Inactive trazodone 150 mg tablet RxNorm: 397720 1/2 Tablet(s) PO QHS as needed for sleep 06/11/2019 06/17/2019 Inactive replaces PA on doxep in trazodone 150 mg tablet RxNorm: 113439 1/2 Tablet(s) PO QHS as needed for sleep 05/12/2019 06/11/2019 Inactive replaces PA on doxep in Vitamin D3 5,000 unit tablet RxNorm: 015216 1 Tablet(s) PO QD 05/09 No Stop Date Active magnesium oxide 400 mg (241.3 mg magnesium) tablet RxNorm: 1 00654 1 Tablet(s) PO QHS 05/09/2019 No Stop Date Active cyanocobalamin (vit B-12) 1,000 mcg/mL injection solution Rx Norm: 175413 1 injection weekly for 4 weeks 1 Milliliter(s) Inj 05/09/2019 12/21/2019 Inactive ferrous sulfate 325 mg (65 mg iron) tablet RxNorm: 989391 1 Tab let(s) PO QD 05/09/2019 12/21/2019 Inactive ropinirole 4 mg tablet RxNorm: 920071 3 TABLET(S) BY [facility] DAILY AT BEDTIME FOR RESTLESS LEGS 03/26/2019 06/23/2019 Inactive Generic For:REQU IP 4 MG TABLET 03/26/2019 11:23:36 AM N O T I C E Last quantity doesn't match original quantity pantoprazole 40 mg tablet,delayed release RxNorm: 812394 Tablet(s) TAKE 1 TABLET BY MOUTH DAILY FOR STOMACH 03/24/2019 06/21/2019 Inactive Gener ic For:PROTONIX 40MG TAB EC 01/03/2019 1:23:44 PM hydroxyzine HCl 10 mg tablet RxNorm: 149963 1 Tablet(s) PO BID as needed 03/24/2019 04/06/2019 Inactive ipratropium-albuterol 0.5 mg-3 mg(2.5 mg base)/3 mL ne bulization soln RxNorm: 3523354 1 Unit Dose INH Q4H 03/21/2019 No Stop Date Active replaces albuterol solution meclizine 12.5 mg tablet RxNorm: 119898 1 Tablet(s) PO BID as neede d 03/21/2019 12/21/2019 Inactive losartan 100 mg tablet RxNorm: 084460 1 Tablet(s) PO QD replace s lisinopril 03/13/2019 09/08/2019 Inactive fluconazole 100 mg tablet RxNorm: 125581 1 Tablet(s) PO QD 03/13/20 19 03/19/2019 Inactive nystatin 100,000 unit/mL oral suspension RxNorm: 087143 5 Unit( s) PO QID 03/13/2019 03/26/2019 Inactive tramadol 50 mg tablet RxNorm: 500672 1 Tablet(s) PO TID as needed for pain TAKE 2 TABS OF EXTRA STRENGTH TYLENOL WITH EACH DOSE 03/10/2019 04/06/2019 Inactive Generic For:*ULTRAM 50 MG TABLET 01/15/2019 4:55:26 PM Sinemet CR 50 mg-200 mg tablet,extended release RxNorm: 8343 41 1 Tablet(s) PO TID 02/26/2019 08/24/2019 Inactive Generic For:*SIN EMET CR 50/200 TABLET SA 07/08/2018 3:09:11 PM trazodone 150 mg tablet RxNorm: 924390 1/2 Tablet(s) PO QHS as needed for sleep 02/13/2019 02/12/2019 Inactive trazodone 150 mg tablet RxNorm: 030121 1/2 Tablet(s) PO QHS as needed for sleep 02/13/2019 02/25/2019 Inactive replaces PA on doxep in doxepin 10 mg capsule RxNorm: 5989553 1-2 Capsule(s) PO QHS prn sleep 02/13/2019 02/13/2019 Inactive Novolog U-100 Insulin aspart 100 unit/mL subcutaneous soluti on RxNorm: 479076 INJECT 10 UNIT(S) SUBCUTANEOUSLY BEFORE MEALS 01/31/2019 05/30/2019 In active 01/31/2019 1:39:10 PM ipratropium-albuterol 0.5 mg-3 mg(2.5 mg base)/3 mL ne bulization soln RxNorm: 5902581 1 Unit Dose INH Q4H 01/17/2019 03/20/2019 Inactive replaces albuterol solution tramadol 50 mg tablet RxNorm: 672936 1 Tablet(s) PO TID as needed for pain TAKE 2 TABS OF EXTRA STRENGTH TYLENOL WITH EACH DOSE 01/15/2019 02/03/2019 Inactive Generic For:*ULTRAM 50 MG TABLET 01/15/2019 4:55:26 PM Sinemet CR 50 mg-200 mg tablet,extended release RxNorm: 8343 41 1 Tablet(s) PO BID 01/03/2019 02/25/2019 Inactive Generic For:*SIN EMET CR 50/200 TABLET SA 07/08/2018 3:09:11 PM losartan 100 mg tablet RxNorm: 740992 1 Tablet(s) PO QD replace s lisinopril 01/03/2019 03/12/2019 Inactive Symbicort 160 mcg-4.5 mcg/actuation HFA aerosol inhaler RxNo rm: 0819897 2 Puff(s) INH BID 01/03/2019 01/02/2019 Inactive pantoprazole 40 mg tablet,delayed release RxNorm: 485188 TAKE 1 TABLET BY MOUTH DAILY FOR STOMACH 01/03/2019 03/23/2019 Inactive Generic For:DC OTONIX 40MG TAB EC 01/03/2019 1:23:44 PM nystatin 100,000 unit/mL oral suspension RxNorm: 364125 Unit(s) 5 Unit(s) PO QID swish and spit 01/02/2019 11/11/2019 Inactive Incruse Ellipta 62.5 mcg/actuation powder for inhalation RxN orm: 3208815 1 Capsule(s) INH QD 12/25/2018 12/21/2019 Inactive Tessalon Perles 100 mg capsule RxNorm: 259472 1 Capsule(s) PO T ID for cough 12/25/2018 02/25/2019 Inactive Medrol (Gui) 4 mg tablets in a dose pack RxNorm: 535647 Tablet(s) PO Use as directed 12/23/2018 01/02/2019 Inactive Levemir FlexTouch U-100 Insulin 100 unit/mL (3 mL) sub cutaneous pen RxNorm: 162722 20 Unit(s) SQ QD with pen needles 12/13/2018 05/11/2019 Inactiv e prednisone 20 mg tablet RxNorm: 150640 1 Tablet(s) PO QD 12/12/2018 0 12/11/2018 Inactive prednisone 20 mg tablet RxNorm: 748786 1 Tablet(s) PO QD 12/12/2018 0 12/16/2018 Inactive promethazine 6.25 mg-codeine 10 mg/5 mL syrup RxNorm: 143391 5 Milliliter(s) PO QHS as needed for cough 12/09/2018 12/18/2018 Inactive cefdinir 300 mg capsule RxNorm: 729153 1 Capsule(s) PO BID 12/10/19 19 12/18/2018 Inactive fluconazole 100 mg tablet RxNorm: 159775 1 Tablet(s) PO QD 12/06/19 19 12/08/2018 Inactive ropinirole 4 mg tablet RxNorm: 922468 3 Tablet(s) PO QHS for re stless legs 12/04/2018 03/03/2019 Inactive Novolog U-100 Insulin aspart 100 unit/mL subcutaneous soluti on RxNorm: 406654 INJECT 10 UNIT(S) SUBCUTANEOUSLY BEFORE MEALS 12/04/2018 01/30/2019 In active 12/04/2018 10:02:42 AM nystatin 100,000 unit/mL oral suspension RxNorm: 191843 5 Unit(s) PO QID swish and spit 11/25/2018 12/18/2018 Inactive ropinirole 4 mg tablet RxNorm: 922703 3 Tablet(s) PO QHS for re stless legs 11/04/2018 12/03/2018 Inactive prednisone 20 mg tablet RxNorm: 243023 1 Tablet(s) PO BID 10/23/2018 10/29/2018 Inactive ropinirole 4 mg tablet RxNorm: 057244 3 Tablet(s) PO QHS for re stless legs 10/14/2018 11/04/2018 Inactive pantoprazole 40 mg tablet,delayed release RxNorm: 075627 1 Tablet(s) PO QD forstomach 10/10/2018 01/02/2019 Inactive Symbicort 160 mcg-4.5 mcg/actuation HFA aerosol inhaler RxNo rm: 3107086 2 Puff(s) INH BID 10/10/2018 01/03/2019 Inactive Novolog U-100 Insulin aspart 100 unit/mL subcutaneous soluti on RxNorm: 663396 INJECT 10 UNIT(S) SUBCUTANEOUSLY BEFORE MEALS 10/10/2018 12/03/2018 In active 10/10/2018 11:30:01 AM Sinemet CR 50 mg-200 mg tablet,extended release RxNorm: 8343 41 1 Tablet(s) PO BID 09/26/2018 01/03/2019 Inactive Generic For:*SIN EMET CR 50/200 TABLET SA 07/08/2018 3:09:11 PM ropinirole 4 mg tablet RxNorm: 805257 2 Tablet(s) PO QHS for re stless legs 09/18/2018 10/13/2018 Inactive metformin ER 1,000 mg tablet,extended release 24hr RxNorm: 1 168975 1 Tablet(s) PO BID 09/09/2018 12/18/2018 Inactive ropinirole 4 mg tablet RxNorm: 980409 2 Tablet(s) PO QHS for re stless legs 08/21/2018 09/17/2018 Inactive doxycycline hyclate 100 mg capsule RxNorm: 9826898 1 Capsule(s) PO BID 08/07/2018 08/13/2018 Inactive ropinirole 4 mg tablet RxNorm: 831366 1 Tablet(s) PO QHS replac es 1mg dose 08/07/2018 08/20/2018 Inactive ropinirole 2 mg tablet RxNorm: 720995 TAKE 3 TABLETS BY MOUTH DAILY AT BEDTIME DO NOT EXCEED 3 TABLETS PER DAY!!!! 07/31/2018 08/06/2018 Inactive Generic For:REQUIP 2 MG TABLET 07/30/2018 3:50:28 PM Symbicort 160 mcg-4.5 mcg/actuation HFA aerosol inhaler RxNo rm: 6122247 2 Puff(s) INH BID 07/12/2018 10/09/2018 Inactive Sinemet CR 50 mg-200 mg tablet,extended release RxNorm: 8343 41 TAKE 1 TABLET BY MOUTH TWICE DAILY 07/08/2018 09/26/2018 Inactive Generic For:*S INEMET CR 50/200 TABLET SA 07/08/2018 3:09:11 PM losartan 100 mg tablet RxNorm: 086187 1 Tablet(s) PO QD replace s lisinopril 06/17/2018 12/13/2018 Inactive Novolog U-100 Insulin aspart 100 unit/mL subcutaneous soluti on RxNorm: 926592 10 Unit(s) SQ AC 06/17/2018 10/09/2018 Inactive albuterol sulfate 2.5 mg/3 mL (0.083 %) solution for n ebulization RxNorm: 889931 Milliliter(s) INH USE 1 VIAL IN NEBULIZE R EVERY FOUR HOURS NEEDED FOR WHEEZING OR SHORTNESS OF BREATH 06/13/2018 01/16/2019 Inactive Generic For:*PROVENTIL 0.83 MG/ML SOLUTN 06/13/2013 2:04:46 PM ropinirole 2 mg tablet RxNorm: 858165 3 Tablet(s) PO QH S DO NOT EXCEED 6MG (3 TABLETS) PER DAY!!!! 06/13/2018 07/31/2018 Inactive atorvastatin 40 mg tablet RxNorm: 781831 Tablet(s) TAKE 1 TABLET BY MOUTH EVERY DAY 05/13/2018 12/18/2018 Inactive Generic For:LIPI TOR 40MG TAB 05/01/2018 8:37:31 AM Sinemet CR 50 mg-200 mg tablet,extended release RxNorm: 8343 41 1 Tablet(s) PO BID 05/08/2018 07/06/2018 Inactive Lidocaine Viscous 2 % mucosal solution RxNorm: 3115579 5 Milliliter(s) PO QID as needed 05/02/2018 08/06/2018 Inactive Diflucan 100 mg tablet RxNorm: 388276 1 Tablet(s) PO QD 05/02/2018 Inactive atorvastatin 40 mg tablet RxNorm: 789028 TAKE 1 TABLET BY MOUTH EVERY DAY 05/01/2018 05/13/2018 Inactive Generic For:LIPITOR 40MG TAB 05/01/2018 8:37:31 AM nystatin 100,000 unit/mL oral suspension RxNorm: 343679 5 Unit(s) PO QID (before meals and at bedtime) 04/24/2018 04/30/2018 Inactive Ventolin HFA 90 mcg/actuation aerosol inhaler RxNorm: 377815 2 Puff(s) INH Q4H as needed one inhaler for home and one inhaler for car 04/23/201812/18 Inactive Mucinex 600 mg tablet, extended release RxNorm: 589765 1 Tablet(s) PO BID for congestion 04/22/2018 05/21/2018 Inactive prednisone 10 mg tablet RxNorm: 333276 Tablet(s) PO as directeds 08/06/2018 Inactive ropinirole 2 mg tablet RxNorm: 443061 3 Tablet(s) PO QH S DO NOT EXCEED 6MG (3 TABLETS) PER DAY!!!! 04/09/2018 05/08/2018 Inactive gabapentin 300 mg capsule RxNorm: 646992 1-2 Capsule(s) PO QHS 02/201804/08/2018 Inactive ropinirole 2 mg tablet RxNorm: 393814 1 Tablet(s) PO QHS 03/28/2018 0 04/08/2018 Inactive gabapentin 300 mg capsule RxNorm: 521698 1-2 Capsule(s) PO QHS 02/2303/29/2018 Inactive gabapentin 300 mg capsule RxNorm: 448002 1-2 Capsule(s) PO QHS 02/2203/13/2018 Inactive gabapentin 300 mg capsule RxNorm: 744006 2 Capsule(s) PO QHS 201703/11/2018 Inactive ropinirole 2 mg tablet RxNorm: 677821 1 Tablet(s) PO QHS 02/28/2018 0 03/28/2018 Inactive ropinirole 2 mg tablet RxNorm: 187986 1 Tablet(s) PO QHS 02/28/2018 0 02/27/2018 Inactive gabapentin 300 mg capsule RxNorm: 257508 1 Capsule(s) PO QHS 201702/27/2018 Inactive pantoprazole 40 mg tablet,delayed release RxNorm: 961123 1 Tablet(s) PO QD forstomach 01/23/2018 05/22/2018 Inactive Voltaren 1 % topical gel RxNorm: 227863 1 Gram(s) TOP QID to ri ght knee 01/23/2018 02/04/2018 Inactive metformin ER 500 mg tablet,extended release 24hr RxNorm: 860 975 2 Tablet(s) PO BID 01/09/2018 12/08/2018 Inactive Requip 1 mg tablet RxNorm: 432838 1 Tablet(s) PO QHS 01/09/201802/27 Inactive prednisone 20 mg tablet RxNorm: 563729 1 Tablet(s) PO T ID for 3 days then 1 po BID for 3 days then one daily for 3 days 01/02/2018 02/03/2018 Inactiv e Levaquin 500 mg tablet RxNorm: 925955 1 Tablet(s) PO QD 01/02/2018 Inactive ProAir HFA 90 mcg/actuation aerosol inhaler RxNorm: 472777 2 Puff(s) INH Q4H as needed 12/28/2017 No Stop Date Active please switch to ventolin if insurance doesn't cover montelukast 10 mg tablet RxNorm: 850605 1 Tablet(s) PO QD 12/28/2017 02/03/2018 Inactive Levaquin 500 mg tablet RxNorm: 776268 1 Tablet(s) PO QD 12/21/2017 Inactive ProAir HFA 90 mcg/actuation aerosol inhaler RxNorm: 182077 2 Puff(s) INH Q4H as needed 12/21/2017 12/27/2017 Inactive please switch to ventolin if insurance doesn't cover doxycycline hyclate 100 mg tablet RxNorm: 259675 1 Tablet(s) PO BID 12/17/2017 12/26/2017 Inactive Levemir FlexTouch U-100 Insulin 100 unit/mL (3 mL) sub cutaneous pen RxNorm: 450364 20 Unit(s) SQ QD with pen needles---Due for labs 12/11/2017 02/03/2018 Inactive Requip 1 mg tablet RxNorm: 030936 1 Tablet(s) PO QHS 12/10/201712/09 Inactive Requip 1 mg tablet RxNorm: 668095 1 Tablet(s) PO QHS 12/10/201701/09 Inactive albuterol sulfate 2.5 mg/3 mL (0.083 %) solution for n ebulization RxNorm: 606099 Milliliter(s) INH USE 1 VIAL IN NEBULIZE R EVERY FOUR HOURS NEEDED FOR WHEEZING OR SHORTNESS OF BREATH 12/05/2017 06/13/2018 Inactive Generic For:*PROVENTIL 0.83 MG/ML SOLUTN 06/13/2013 2:04:46 PM Tudorza Pressair 400 mcg/actuation breath activated RxNorm: 0876223 1 Puff(s) INH BID 12/03/2017 12/10/2017 Inactive Levemir FlexTouch U-100 Insulin 100 unit/mL (3 mL) sub cutaneous pen RxNorm: 714276 10 Unit(s) SQ QD with pen needles---Due for labs 11/16/2017 12/10/2017 Inactive Zofran ODT 4 mg disintegrating tablet RxNorm: 397409 1 Tablet(s) PO Q4H as needed for nausea 10/17/2017 02/04/2018 Inactive Efudex 5 % topical cream RxNorm: 408586 Application TOP QD prn to precancer skin lesions 10/17/2017 02/03/2018 Inactive Sinemet CR 50 mg-200 mg tablet,extended release RxNorm: 8343 41 1 Tablet(s) PO BID 10/17/2017 02/05/2018 Inactive Sinemet CR 50 mg-200 mg tablet,extended release RxNorm: 8343 41 1 Tablet(s) PO QHS 09/25/2017 10/16/2017 Inactive gabapentin 600 mg tablet RxNorm: 316868 1 Tablet(s) PO BID 08/15/20 17 08/14/2017 Inactive gabapentin 600 mg tablet RxNorm: 824274 1 Tablet(s) PO BID 08/15/20 17 12/10/2017 Inactive Novolog U-100 Insulin aspart 100 unit/mL subcutaneous soluti on RxNorm: 715831 10 Unit(s) SQ AC 08/15/2017 02/03/2018 Inactive Novolog 100 unit/mL subcutaneous solution RxNorm: 883040 10 Uni t(s) SQ AC 08/13/2017 08/14/2017 Inactive prednisone 20 mg tablet RxNorm: 852932 2 Tablet(s) PO QD 08/02/2017 1 10/04/2016 Inactive gabapentin 600 mg tablet RxNorm: 299738 Tablet(s) 1 Tab let(s) PO QHS replaces 300mg dose 07/09/2017 08/14/2017 Inactive Breo Ellipta 100 mcg-25 mcg/dose powder for inhalation RxNor m: 0904936 1 Unit Dose INH QD 07/02/2017 08/30/2017 Inactive Tudorza Pressair 400 mcg/actuation breath activated RxNorm: 4025276 1 Puff(s) INH BID 06/18/2017 12/02/2017 Inactive gabapentin 600 mg tablet RxNorm: 788746 1 Tablet(s) PO QHS repl aces 300mg dose 06/14/2017 07/08/2017 Inactive metformin ER 1,000 mg tablet,extended release 24hr RxNorm: 1 070333 1 Tablet(s) PO BID 05/29/2017 01/08/2018 Inactive cyclobenzaprine 5 mg tablet RxNorm: 513394 1 Tablet(s) PO TID 05/2906/07/2017 Inactive metformin ER 1,000 mg tablet,extended release 24hr RxNorm: 8 90387 1 Tablet(s) PO BID 05/25/2017 05/28/2017 Inactive metformin ER 1,000 mg tablet,extended release 24hr RxNorm: 8 59118 1 Tablet(s) PO BID 05/22/2017 05/24/2017 Inactive Amaryl 2 mg tablet RxNorm: 421394 1 Tablet(s) PO BID 05/01/201702/03 Inactive glimepiride 2 mg tablet RxNorm: 576463 1 Tablet(s) PO BID 04/19/2017 02/03/2018 Inactive ferrous sulfate 325 mg (65 mg iron) tablet RxNorm: 552485 1 Tab let(s) PO QHS 04/17/2017 02/03/2018 Inactive Requip 4 mg tablet RxNorm: 759722 1 Tablet(s) PO BID 04/12/201704/11 Inactive Requip 4 mg tablet RxNorm: 217900 1 Tablet(s) PO BID 04/12/201704/15 Inactive Levemir FlexTouch 100 unit/mL (3 mL) subcutaneous insulin pe n RxNorm: 578413 10 Unit(s) SQ QD with pen needles---Due for labs 04/05/2017 11/15/2017 In active Silenor 3 mg tablet RxNorm: 088286 1 Tablet(s) PO QHS 04/05/201709/25 Inactive ropinirole 4 mg tablet RxNorm: 932995 1 Tablet(s) PO QHS 03/29/2017 0 04/01/2017 Inactive ropinirole 4 mg tablet RxNorm: 288103 1 Tablet(s) PO QHS 03/29/2017 0 03/28/2017 Inactive Requip 4 mg tablet RxNorm: 458884 1 Tablet(s) PO QHS 03/28/201704/01 Inactive gabapentin 600 mg tablet RxNorm: 339955 1 Tablet(s) PO QHS repl aces 300mg dose 03/28/2017 04/15/2017 Inactive Requip 4 mg tablet RxNorm: 966394 1 Tablet(s) PO QHS 03/23/201703/27 Inactive gabapentin 600 mg tablet RxNorm: 260471 1 Tablet(s) PO QHS 03/13/20 17 03/12/2017 Inactive gabapentin 600 mg tablet RxNorm: 525187 1 Tablet(s) PO QHS 03/13/20 17 03/27/2017 Inactive gabapentin 300 mg capsule RxNorm: 518712 1 Capsule(s) PO QPM 201603/12/2017 Inactive Generic For:NEURONTIN 300 MG CAPSULE 01/22/2017 10:10:39 AM losartan 100 mg tablet RxNorm: 922124 1 Tablet(s) PO QD replace s lisinopril 02/21/2017 06/17/2018 Inactive gabapentin 300 mg capsule RxNorm: 385561 TAKE 1 CAPSULE BY MOUT H EVERY EVENING 01/22/2017 02/21/2017 Inactive Generic For:NEURONTI N 300 MG CAPSULE 01/22/2017 10:10:39 AM gabapentin 300 mg capsule RxNorm: 600348 1 Capsule(s) PO QPM 201601/21/2017 Inactive Requip 4 mg tablet RxNorm: 163320 1 Tablet(s) PO QHS 12/21/201603/20 Inactive Effient 10 mg tablet RxNorm: 719915 1 Tablet(s) PO QD 12/12/201612/23 Inactive gabapentin 300 mg capsule RxNorm: 180915 1 Capsule(s) PO QPM 201612/03/2016 Inactive gabapentin 300 mg capsule RxNorm: 663915 1 Capsule(s) PO QPM 201612/13/2016 Inactive Requip 4 mg tablet RxNorm: 462596 1 Tablet(s) PO QHS 11/28/201612/21 Inactive atorvastatin 40 mg tablet RxNorm: 597912 Tablet(s) 1 Tablet(s) PO Q D 11/22/2016 08/18/2017 Inactive atorvastatin 40 mg tablet RxNorm: 375406 1 Tablet(s) PO QD 11/23/1911/21/2016 Inactive ropinirole 1 mg tablet RxNorm: 844837 2.5 Tablet(s) PO QPM for legs/sleep 11/14/2016 11/27/2016 Inactive nystatin 100,000 unit/mL oral suspension RxNorm: 528600 5 Unit(s) PO QID swish and spit 10/31/2016 02/03/2018 Inactive fluconazole 100 mg tablet RxNorm: 133863 1 Tablet(s) PO QD 10/31/19 17 11/09/2016 Inactive doxycycline hyclate 100 mg capsule RxNorm: 1695392 1 Capsule(s) PO BID 10/03/2016 10/12/2016 Inactive Levemir FlexTouch 100 unit/mL (3 mL) subcutaneous insulin pe n RxNorm: 285097 10 Unit(s) SQ QD with pen needles 09/18/2016 04/04/2017 Inactive amitriptyline 25 mg tablet RxNorm: 378220 1 Tablet(s) P O QHS as needed for sleep 09/04/2016 10/17/2016 Inactive ropinirole 1 mg tablet RxNorm: 840198 1.5 Tablet(s) PO QPM for legs/sleep 09/04/2016 11/13/2016 Inactive amitriptyline 25 mg tablet RxNorm: 939191 1 Tablet(s) P O QHS as needed for sleep 08/22/2016 09/03/2016 Inactive clopidogrel 75 mg tablet RxNorm: 643636 1 Tablet(s) PO QD 08/10/2016 10/17/2016 Inactive Zoloft 100 mg tablet RxNorm: 480137 2 Tablet(s) PO QHS 08/10/2016 Inactive atorvastatin 40 mg tablet RxNorm: 871175 1 Tablet(s) PO QD 08/10/20 16 10/17/2016 Inactive ropinirole 1 mg tablet RxNorm: 777725 1 Tablet(s) PO QPM for le gs/sleep 08/10/2016 09/03/2016 Inactive losartan 100 mg tablet RxNorm: 075459 1 Tablet(s) PO QD replace s lisinopril 07/20/2016 02/21/2017 Inactive Zofran 4 mg tablet RxNorm: 427377 1 Tablet(s) PO Q4H as needed for nausea 07/06/2016 10/17/2016 Inactive Flagyl 500 mg tablet RxNorm: 304774 1 Tablet(s) PO TID 07/06/2016 Inactive Plavix 75 mg tablet RxNorm: 194218 1 Tablet(s) PO QD 06/08/201607/05 Inactive isosorbide mononitrate ER 30 mg tablet,extended release 24 h r RxNorm: 733706 1 Tablet(s) PO QAM 06/08/2016 08/09/2016 Inactive atorvastatin 40 mg tablet RxNorm: 008566 1 Tablet(s) PO QD 06/08/20 16 08/09/2016 Inactive hydrochlorothiazide 12.5 mg tablet RxNorm: 302986 1 Tablet(s) PO QA M 06/08/2016 07/05/2016 Inactive metformin ER 1,000 mg tablet,extended release 24hr RxNorm: 8 42653 1 Tablet(s) PO BID 06/08/2016 09/05/2016 Inactive metoprolol tartrate 25 mg tablet RxNorm: 895410 1/2 Tablet(s) PO BI D 06/08/2016 08/09/2016 Inactive Zoloft 100 mg tablet RxNorm: 251326 2 Tablet(s) PO QHS 04/03/2016 Inactive metformin ER 1,000 mg tablet,extended release 24hr RxNorm: 8 03456 Tablet(s) 1 Tablet(s) PO QD 03/30/2016 12/18/2018 Inactive Levemir FlexTouch 100 unit/mL (3 mL) subcutaneous insulin pe n RxNorm: 995177 10 Unit(s) SQ QD 03/09/2016 03/08/2016 Inactive Levemir FlexTouch 100 unit/mL (3 mL) subcutaneous insulin pe n RxNorm: 245608 10 Unit(s) SQ QD with pen needles 03/09/2016 03/20/2016 Inactive Mobic 15 mg tablet RxNorm: 382994 1 Tablet(s) PO QD for foot pain 0 02/17/2016 03/17/2016 Inactive Zoloft 100 mg tablet RxNorm: 194274 1 1/2 Tablet(s) PO QHS 01/31/20 16 04/02/2016 Inactive omeprazole 20 mg capsule,delayed release RxNorm: 869595 TAKE 2 CAPSULES BY MOUTH EVERY DAY 01/12/2016 08/09/2016 Inactive Generic For:*CHERYL LOSEC [address] 01/12/2016 8:58:34 AM Zoloft 100 mg tablet RxNorm: 579250 1/2 Tablet(s) PO QH S for 1 week then 1 tablet po q HS 12/30/2015 01/27/2016 Inactive Ventolin HFA 90 mcg/actuation aerosol inhaler RxNorm: 094453 2 Puff(s) INH QID as needed for shortness of breath 12/30/2015 02/03/2018 Inactive [AttnRPh: Saving apply/adjudicate RxGRP:SG20 RxBIN:[id number] RxPCN: ID#:[id number]] metformin ER 1,000 mg tablet,extended release 24hr RxNorm: 8 52903 1 Tablet(s) PO QD 12/20/2015 03/18/2016 Inactive clindamycin 300 mg capsule RxNorm: 246063 1 Capsule(s) PO TID 12/0512/15/2015 Inactive mupirocin 2 % topical cream RxNorm: 573158 TOP to facial lesion s twice daily 11/15/2015 12/15/2015 Inactive cefdinir 300 mg capsule RxNorm: 289006 1 Capsule(s) PO BID 11/15/19 16 11/24/2015 Inactive Medrol (Gui) 4 mg tablets in a dose pack RxNorm: 831737 Tablet(s) PO as directed 10/11/2015 12/15/2015 Inactive albuterol sulfate 2.5 mg/3 mL (0.083 %) solution for n ebulization RxNorm: 090816 INH USE 1 VIAL IN NEBULIZER EVERY FOUR H OURS NEEDED FOR WHEEZING OR SHORTNESS OF BREATH 10/05/2015 10/04/2015 Inactive Generic For:*PRO VENTIL 0.83 MG/ML SOLUTN 06/13/2013 2:04:46 PM doxycycline hyclate 100 mg capsule RxNorm: 8953770 1 Capsule(s) PO BID 10/05/2015 10/14/2015 Inactive albuterol sulfate 2.5 mg/3 mL (0.083 %) solution for n ebulization RxNorm: 669178 Milliliter(s) INH USE 1 VIAL IN NEBULIZE R EVERY FOUR HOURS NEEDED FOR WHEEZING OR SHORTNESS OF BREATH Dx: J44.9 10/05/2015 12/05/2017 Inacti ve Generic For:*PROVENTIL 0.83 MG/ML SOLUTN 06/13/2013 2:04:46 PM albuterol sulfate 2.5 mg/3 mL (0.083 %) solution for n ebulization RxNorm: 013356 3 Milliliter(s) INH USE 1 VIAL IN NEBULI ZER EVERY FOUR HOURS NEEDED FOR WHEEZING OR SHORTNESS OF BREATH 09/06/2015 10/04/2015 Inactive Generic For:*PROVENTIL 0.83 MG/ML SOLUTN 06/13/2013 2:04:46 PM Tradjenta 5 mg tablet RxNorm: 8770661 2 Tablet(s) PO QD 07/22/2015 Inactive albuterol sulfate 2.5 mg/3 mL (0.083 %) solution for n ebulization RxNorm: 517010 3 Milliliter(s) INH USE 1 VIAL IN NEBULI ZER EVERY FOUR HOURS NEEDED FOR WHEEZING OR SHORTNESS OF BREATH 06/29/2015 09/05/2015 Inactive Generic For:*PROVENTIL 0.83 MG/ML SOLUTN 06/13/2013 2:04:46 PM albuterol sulfate 2.5 mg/3 mL (0.083 %) solution for n ebulization RxNorm: 752838 Milliliter(s) INH USE 1 VIAL IN NEBULIZE R EVERY FOUR HOURS NEEDED FOR WHEEZING OR SHORTNESS OF BREATH 06/29/2015 12/04/2017 Inactive Generic For:*PROVENTIL 0.83 MG/ML SOLUTN 06/13/2013 2:04:46 PM doxycycline hyclate 100 mg tablet RxNorm: 572907 1 Tablet(s) PO BID 06/28/2015 07/07/2015 Inactive losartan 100 mg tablet RxNorm: 133914 1 Tablet(s) PO QD -replac es lisinopril 06/14/2015 09/05/2015 Inactive metformin ER 1,000 mg tablet,extended release 24hr RxNorm: 8 64822 1 Tablet(s) PO QD 06/14/2015 09/11/2015 Inactive losartan 100 mg tablet RxNorm: 083399 1 Tablet(s) PO QD -replac es lisinopril 06/14/2015 12/10/2015 Inactive Zocor 20 mg tablet RxNorm: 889034 Tablet(s) Tablet(s) 1 Tablet(s) PO QD -needs lipids labs 06/14/2015 06/14/2015 Inactive atorvastatin 40 mg tablet RxNorm: 352272 1 Tablet(s) PO QD repl aces simvastatin 06/14/2015 12/10/2015 Inactive loratadine 10 mg tablet RxNorm: 319935 Tablet(s) 1 Tablet(s) PO QD for drainage 06/14/2015 06/07/2016 Inactive Celexa 40 mg tablet RxNorm: 294743 1 Tablet(s) PO QD TA KE ONE (1) TABLET BY MOUTH DAILY 06/14/2015 12/29/2015 Inactive Generic For:HARJINDER XA 40 MG TABLET clindamycin 300 mg capsule RxNorm: 280615 2 Capsule(s) PO BID 06/0306/12/2015 Inactive metformin ER 1,000 mg tablet,extended release 24hr RxNorm: 8 46669 1 Tablet(s) PO QD 06/03/2015 06/02/2015 Inactive metformin ER 1,000 mg tablet,extended release 24hr RxNorm: 8 49338 1 Tablet(s) PO QD 06/03/2015 06/13/2015 Inactive mupirocin 2 % topical ointment RxNorm: 067615 TOP apply to open lesion of knee twice daily 06/03/2015 01/30/2016 Inactive Zocor 20 mg tablet RxNorm: 666056 Tablet(s) 1 Tablet(s ) PO QD -needs lipids labs 05/13/2015 06/13/2015 Inactive Celexa 40 mg tablet RxNorm: 418806 1 Tablet(s) PO QD TA KE ONE (1) TABLET BY MOUTH DAILY 05/13/2015 06/13/2015 Inactive Generic For:HARJINDER XA 40 MG TABLET Zocor 20 mg tablet RxNorm: 937936 Tablet(s) 1 Tablet(s ) PO QD -needs lipids labs 02/23/2015 03/24/2015 Inactive loratadine 10 mg tablet RxNorm: 145082 1 Tablet(s) PO QD for dr saenz 12/24/2014 06/13/2015 Inactive Zocor 20 mg tablet RxNorm: 567130 1 Tablet(s) PO QD -needs lipi ds labs 11/17/2014 02/23/2015 Inactive Celexa 40 mg tablet RxNorm: 796206 1 Tablet(s) PO QD 1 Tablet(s) PO QD 1 Tablet(s) PO QD Generic OKAY 11/11/2014 05/13/2015 Inactive Zocor 20 mg tablet RxNorm: 762519 1 Tablet(s) PO QD -needs lipi ds labs 11/11/2014 11/16/2014 Inactive omeprazole 20 mg capsule,delayed release RxNorm: 852727 2 Capsule(s) PO QD TAKE 2 CAPSULES BY MOUTH DAILY 10/27/2014 04/24/2015 Inactive Shena harp For:*PRILOSEC 20 MG CAPSULE trazodone 50 mg tablet RxNorm: 477375 1 1/2 Tablet(s) PO QHS 201412/29/2015 Inactive losartan 100 mg tablet RxNorm: 473981 1 Tablet(s) PO QD -replac es lisinopril 10/26/2014 04/23/2015 Inactive Levaquin 500 mg tablet RxNorm: 008542 1 Tablet(s) PO QD 10/08/2014 Inactive Levaquin 500 mg tablet RxNorm: 744658 1 Tablet(s) PO QD 10/08/2014 Inactive Diflucan 100 mg tablet RxNorm: 106765 1 Tablet(s) PO QD 10/06/2014 Inactive DuoNeb 0.5 mg-3 mg(2.5 mg base)/3 mL solution for nebulizati on RxNorm: 1187747 3 Milliliter(s) INH QID 09/23/2014 08/09/2016 Inactive Ventolin HFA 90 mcg/actuation aerosol inhaler RxNorm: 282593 2 Puff(s) INH QID as needed for shortness of breath 09/21/2014 12/29/2015 Inactive [AttnRPh: Saving apply/adjudicate RxGRP:SG20 RxBIN:[id number] RxPCN: ID#:[id number]] promethazine-codeine 6.25 mg-10 mg/5 mL syrup RxNorm: 761872 1 Teaspoon(s) PO QHS as needed for cough 09/08/2014 09/20/2014 Inactive prednisone 20 mg tablet RxNorm: 105614 1 Tablet(s) PO BID 09/02/2014 09/08/2014 Inactive promethazine-codeine 6.25 mg-10 mg/5 mL syrup RxNorm: 262682 1 Teaspoon(s) PO Q4H 09/02/2014 09/20/2014 Inactive doxycycline monohydrate 100 mg capsule RxNorm: 254191 1 Capsule (s) PO BID 09/02/2014 09/07/2014 Inactive Tessalon Perles 100 mg capsule RxNorm: 872516 1 Capsule (s) PO TID as needed for cough 08/31/2014 09/20/2014 Inactive Actos 15 mg tablet RxNorm: 045585 1 Tablet(s) PO QAM 1 Tablet(s ) PO QAM 08/26/2014 09/20/2014 Inactive loratadine 10 mg tablet RxNorm: 748935 1 Tablet(s) PO QD for dr saenz 08/26/2014 10/26/2014 Inactive Zithromax 500 mg tablet RxNorm: 130823 1 Tablet(s) PO QD 08/25/2014 1 11/01/2013 Inactive Zithromax 500 mg tablet RxNorm: 506633 1 Tablet(s) PO QD 08/25/2014 1 10/25/2013 Inactive Trazadone 75mg Tablet RxNorm: 1 Tablet(s) PO QHS 08/10/20142018 Inactive Zocor 20 mg tablet RxNorm: 592497 1 Tablet(s) PO QD 08/10/20142014 Inactive Trazadone 75mg Tablet RxNorm: 1 Tablet(s) PO QHS as need ed for sleep 08/10/2014 10/08/2014 Inactive Celexa 40 mg tablet RxNorm: 552072 1 Tablet(s) PO QD 1 Tablet(s) PO QD 1 Tablet(s) PO QD Generic OKAY 06/09/2014 10/06/2014 Inactive Actos 15 mg tablet RxNorm: 417337 1 Tablet(s) PO QAM 05/12/201408/26 Inactive lisinopril 20 mg tablet RxNorm: 810982 1 Tablet(s) PO QD 05/12/2014 0 10/26/2014 Inactive TAKE ONE TABLET BY MOUTH EVERY DAY;Gener ic For:*PRINIVIL 20 MG TABLET [AttnRPh: Saving apply/adjudicate RxGRP:SG20 RxBIN:[id number] RxPCN: ID#:[id number]] hydrocodone 5 mg-acetaminophen 325 mg tablet RxNorm: 957177 1 Tablet(s) PO TID as needed for pain for severe pain 04/30/2014 08/09/2014 Inactive hydrocodone 5 mg-acetaminophen 325 mg tablet RxNorm: 612127 1 Tablet(s) PO TID as needed for pain for severe pain 04/17/2014 04/29/2014 Inactive doxycycline hyclate 100 mg capsule RxNorm: 004398 1 Capsule(s) PO BID 03/05/2014 03/04/2014 Inactive doxycycline hyclate 100 mg capsule RxNorm: 373446 1 Capsule(s) PO BID 03/05/2014 03/14/2014 Inactive albuterol sulfate 2.5 mg/3 mL (0.083 %) solution for n ebulization RxNorm: 037540 Milliliter(s) INH USE 1 VIAL IN NEBULIZE R EVERY FOUR HOURS NEEDED FOR WHEEZING OR SHORTNESS OF BREATH 03/02/2014 06/29/2015 Inactive Generic For:*PROVENTIL 0.83 MG/ML SOLUTN 06/13/2013 2:04:46 PM Celexa 40 mg tablet RxNorm: 759966 1 Tablet(s) PO QD 1 Tablet(s) PO QD replaces lexapro. Generic OKAY 01/13/2014 06/09/2014 Inactive Actos 15 mg tablet RxNorm: 694951 1 Tablet(s) PO QAM 01/07/201405/12 Inactive lisinopril 20 mg tablet RxNorm: 796051 1 Tablet(s) PO QD 12/08/2013 0 05/12/2014 Inactive TAKE ONE TABLET BY MOUTH EVERY DAY;Gener ic For:*PRINIVIL 20 MG TABLET cefdinir 300 mg capsule RxNorm: 619372 2 Capsule(s) PO QD 11/10/2013 08/09/2014 Inactive cefdinir 300 mg capsule RxNorm: 770022 2 Capsule(s) PO QD 10/09/2013 10/15/2013 Inactive Actos 15 mg tablet RxNorm: 727379 1 Tablet(s) PO QAM 10/09/201301/06 Inactive doxycycline hyclate 100 mg capsule RxNorm: 4473742 1 Capsule(s) PO Q12H 09/18/2013 09/27/2013 Inactive omeprazole 20 mg capsule,delayed release RxNorm: 969866 2 Capsule(s) PO QD TAKE 2 CAPSULES BY MOUTH DAILY 09/03/2013 03/01/2014 Inactive Generi c For:*PRILOSEC [address] Celexa 40 mg tablet RxNorm: 391915 1 Tablet(s) PO QD re places lexapro. Generic OKAY 09/03/2013 01/13/2014 Inactive Symbicort 160 mcg-4.5 mcg/actuation HFA aerosol inhaler RxNo rm: 7926631 2 Puff(s) INH BID 08/13/2013 03/23/2014 Inactive metformin 1,000 mg tablet RxNorm: 129215 1 Tablet(s) PO BID 013 08/12/2013 Inactive TAKE ONE TABLET BY MOUTH TWI CE DAILY;Generic For:GLUCOPHAGE 1,000 MG TABLET 08/27/12 Thank you Actos 15 mg tablet RxNorm: 635063 1 Tablet(s) PO QAM 06/23/201310/09 Inactive lisinopril 20 mg tablet RxNorm: 527503 1 Tablet(s) PO QD 06/23/2013 0 12/08/2013 Inactive TAKE ONE TABLET BY MOUTH EVERY DAY;Gener ic For:*PRINIVIL 20 MG TABLET albuterol sulfate 2.5 mg/3 mL (0.083 %) solution for n ebulization RxNorm: 697891 Solution for Nebulization INH USE 1 VIAL IN NEBULIZER EVERY FOUR HOURS NEEDED FOR WHEEZING OR SHORTNESS OF BREATH 06/16/2013 03/01/2014 Inactive Generic For:*PROVENTIL 0.83 MG/ML SOLUTN 06/13/2013 2:04:46 PM prednisone 10 mg tablet RxNorm: 954483 1 Tablet(s) PO BID 04/09/2013 04/13/2013 Inactive AndroGel 1.25 gram/actuation (1%) Transdermal Gel Pump RxNorm: 2 92549 TD 04/09/2013 08/09/2014 Inactive APPLY 4 PUMPS OF GEL AT BEDTIME DIRECTED; (Appended: Controlled substance eRx refill - RxReferenceNumber: [id number]) azithromycin 250 mg tablet RxNorm: 200721 2 Tablet(s) PO QD 013 04/16/2013 Inactive Amaryl 2 mg tablet RxNorm: 694168 1 Tablet(s) PO BID N eeds appt in 1 month (around March 21) 02/18/2013 08/12/2013 Inactive Amaryl 2 mg tablet RxNorm: 431908 1 Tablet(s) PO BID 02/18/201302/17 Inactive metformin 1,000 mg tablet RxNorm: 386557 1 Tablet(s) PO BID 013 07/27/2013 Inactive TAKE ONE TABLET BY MOUTH TWI CE DAILY;Generic For:GLUCOPHAGE 1,000 MG TABLET 08/27/12 Thank you Actos 15 mg tablet RxNorm: 686004 1 Tablet(s) PO QAM 02/04/201306/03 Inactive albuterol sulfate 2.5 mg/3 mL (0.083 %) Neb Solution RxNorm: 399015 1 Unit Dose INH Q4H prn wheezing or shortness of breath 01/30/2013 06/15/2013 Inac tive Medrol (Gui) 4 mg tablets in a dose pack RxNorm: 577043 Tablet(s) PO as directed 01/20/2013 07/15/2013 Inactive cefdinir 300 mg capsule RxNorm: 399815 1 Capsule(s) PO BID anti biotic 01/20/2013 01/29/2013 Inactive lisinopril 20 mg tablet RxNorm: 261232 Tablet(s) PO 01/13/20132012 Inactive TAKE ONE TABLET BY MOUTH EVERY DAY;Gener ic For:*PRINIVIL 20 MG TABLET citalopram 40 mg tablet RxNorm: 584256 Tablet(s) PO 01/13/20132013 Inactive TAKE ONE (1) TABLET BY MOUTH DAILY;Gener ic For:CELEXA 40 MG TABLET omeprazole 20 mg capsule,delayed release RxNorm: 871391 Capsule(s) PO TAKE 2 CAPSULES BY MOUTH DAILY 11/15/2012 09/03/2013 Inactive Generic For:*PRILOSEC [address] amoxicillin 875 mg tablet RxNorm: 689787 1 Tablet(s) PO BID 013 10/28/2012 Inactive Actos 30 mg tablet RxNorm: 680609 1 Tablet(s) PO QD 09/23/20122011 Inactive Actos 15 mg tablet RxNorm: 997360 1 Tablet(s) PO QAM 09/23/201209/22 Inactive Actos 15 mg tablet RxNorm: 997711 1 Tablet(s) PO QAM 09/23/201202/04 Inactive prednisone 20 mg tablet RxNorm: 954941 1 Tablet(s) PO BID 08/28/2012 09/03/2012 Inactive doxycycline hyclate 100 mg tablet RxNorm: 6696757 1 Tablet(s) PO BI D 08/28/2012 09/06/2012 Inactive metformin 1,000 mg tablet RxNorm: 743511 Tablet(s) PO 08/27/201201/22 Inactive TAKE ONE TABLET BY MOUTH TWICE DAILY;Gen joshua For:GLUCOPHAGE 1,000 MG TABLET 08/27/12 Thank you citalopram 40 mg tablet RxNorm: 958452 Tablet(s) PO 07/30/20122012 Inactive TAKE ONE (1) TABLET BY MOUTH DAILY;Gener ic For:CELEXA 40 MG TABLET lisinopril 20 mg tablet RxNorm: 398174 Tablet(s) PO 07/30/20122012 Inactive TAKE ONE TABLET BY MOUTH EVERY DAY;Gener ic For:*PRINIVIL 20 MG TABLET AndroGel 1.25 gram/actuation (1%) Transdermal Gel Pump RxNor m: [id number] Gel in Metered-Dose Pump TD 07/09/2012 04/08/2013 Inactive APPLY 4 PUM PS OF GEL AT BEDTIME DIRECTED;WC (Appended: Controlled substance eRx refill - RxReferenceNumber: [id number]) citalopram 40 mg tablet RxNorm: 743965 Tablet(s) PO 07/01/20122011 Inactive TAKE ONE (1) TABLET BY MOUTH DAILY;Gener ic For:CELEXA 40 MG TABLET metformin 1,000 mg tablet RxNorm: 136612 1 Tablet(s) PO BID 012 08/25/2012 Inactive TAKE 1 TABLET BY MOUTH TWICE DAILY;Generic For:GLUCOPHAGE 1,000 MG TABLET meclizine 25 mg Tab RxNorm: 896137 1 Tablet(s) PO QID prn dizziness 05/09/2012 05/18/2012 Inactive lisinopril 20 mg tablet RxNorm: 814501 Tablet(s) PO QD 04/22/2012 Inactive TAKE ONE (1) TABLET BY MOUTH DAILY;Gener ic For:*PRINIVIL 20 MG TABLET metformin 1,000 mg tablet RxNorm: 870224 Tablet(s) PO 03/19/201212/2011 Inactive TAKE 1 TABLET BY MOUTH TWICE DAILY;Gener ic For:GLUCOPHAGE 1,000 MG TABLET cefdinir 300 mg Cap RxNorm: 899512 1 Capsule(s) PO BID 11/28/2011 Inactive cefdinir 300 mg Cap RxNorm: 892617 1 Capsule(s) PO BID 11/01/2011 Inactive citalopram 40 mg tablet RxNorm: 392020 Tablet(s) PO 10/30/20112011 Inactive TAKE ONE (1) TABLET BY MOUTH DAILY;Gener ic For:CELEXA 40 MG TABLET cefdinir 300 mg Cap RxNorm: 280598 1 Capsule(s) PO BID 10/02/2011 Inactive metformin 1,000 mg Tab RxNorm: 311906 1 Tablet(s) PO BID 09/28/2011 0 01/25/2012 Inactive citalopram 40 mg Tab RxNorm: 595074 1 Tablet(s) PO QD 09/28/201111/2011 Inactive omeprazole 20 mg capsule,delayed release RxNorm: 116040 2 Capsu le(s) PO QD 09/28/2011 03/25/2012 Inactive lisinopril 20 mg Tab RxNorm: 678046 Tablet(s) PO 08/21/2011 04/21/2012 Inactive TAKE ONE (1) TABLET BY MOUTH DAILY;Generic For:*PRINIVIL 20 MG TABLET AndroGel 1.25 gram/actuation (1%) Transdermal Gel Pump RxNor m: [id number] Gel in Metered-dose Pump TD 08/21/2011 07/09/2012 Inactive APPLY 4 PUM PS OF GEL AT BEDTIME DIRECTED (Appended: Controlled substance eRx refill - RxReferenceNumber: [id number]) Lantus Solostar 100 unit/mL (3 mL) Sub-Q Insulin Pen RxNorm: 555347 30 Unit(s) SQ QD 06/20/2011 05/08/2012 Inactive Lantus Solostar 100 unit/mL (3 mL) Sub-Q Insulin Pen RxNorm: 050457 30 Unit(s) SQ QD 06/19/2011 06/19/2011 Inactive metformin 1,000 mg Tab RxNorm: 911763 1 Tablet(s) PO BID 05/12/2011 1 11/09/2010 Inactive citalopram 40 mg Tab RxNorm: 242507 1 Tablet(s) PO QD 03/06/201105/2011 Inactive metformin 1,000 mg Tab RxNorm: 489020 1 Tablet(s) PO BID 12/27/2010 0 04/25/2011 Inactive lisinopril 20 mg Tab RxNorm: 048852 Tablet(s) PO TAKE 1 TABLET BY MOUTH EVERY DAY;Generic For:*PRINIVIL 20 MG TABLET 12/26/2010 08/20/2011 Inactive Ceftin 500 mg Tab RxNorm: 992470 1 Tablet(s) PO BID 12/19/20102010 Inactive omeprazole 20 mg Cap, Delayed Release RxNorm: 638477 2 Capsule( s) PO QD 09/13/2010 03/11/2011 Inactive Byetta 10 mcg/0.04 mL per dose Sub-Q Pen Injector RxNorm: 84 7913 1 Unit Dose SQ BID 09/07/2010 10/06/2010 Inactive Celexa 40 mg tablet RxNorm: 215325 1 Tablet(s) PO QD re places lexapro. Generic OKAY 08/09/2010 02/04/2011 Inactive Actos 30 mg Tab RxNorm: 736449 1 Tablet(s) PO QD 08/09/2010 04/02/2011 Inactive lisinopril 20 mg Tab RxNorm: 178859 1 Tablet(s) PO QD 08/09/201011/22 Inactive metformin 1,000 mg Tab RxNorm: 885547 1 Tablet(s) PO BID 08/09/2010 0 12/06/2010 Inactive Metformin 1,000 mg Tab RxNorm: 487288 1 Tablet(s) PO BID 04/26/2010 0 04/25/2010 Inactive metformin 1,000 mg Tab RxNorm: 127303 1 Tablet(s) PO BID 04/26/2010 1 Inactive Lomotil 2.5 mg-0.025 mg Tab RxNorm: 3110344 1 Tablet(s) PO TID 1-2 TABS THREE TIMES DAILY 04/05/2010 04/07/2010 Inactive Mupirocin 2 % Topical Cream RxNorm: 931403 TOP BID 04/05/201003/25 Inactive lisinopril 20 mg Tab RxNorm: 657312 1 Tablet(s) PO QD 03/29/201010/2009 Inactive Actos 30 mg Tab RxNorm: 723513 1 Tablet(s) PO QD 03/29/2010 07/26/2010 Inactive Lisinopril 20 mg Tab RxNorm: 288596 1 Tablet(s) PO QD 02/27/201001/2010 Inactive Actos 30 mg Tab RxNorm: 847434 1 Tablet(s) PO QD 02/14/2010 03/28/2010 Inactive Celexa 40 mg Tab RxNorm: 483347 1 Tablet(s) PO QD replaces lexapro 01/13/2010 07/11/2010 Inactive Cyclobenzaprine 10 mg Tab RxNorm: 463327 1 Tablet(s) PO TID prn spasm 12/23/2009 01/21/2010 Inactive Cyclobenzaprine 10 mg Tab RxNorm: 169363 1 Tablet(s) PO TID 010 12/22/2009 Inactive Hydrocodone-Acetaminophen 7.5 mg-750 mg Tab RxNorm: 015252 1 Ta blet(s) PO Q4-6H 12/23/2009 12/22/2009 Inactive aspirin 81 mg tablet RxNorm: 325362 1 Tablet(s) PO QD No Start Date Active isosorbide mononitrate ER 60 mg tablet,extended release 24 h r RxNorm: 407366 1 Tablet(s) PO QD No Start Date Active amlodipine 5 mg tablet RxNorm: 610700 1 Tablet(s) PO QD No Start Date Active Vitamin D3 1,000 unit tablet RxNorm: 503863 3 Tablet(s) PO QD No St art Date 10/26/2014 Inactive Lexapro 20 mg Tab RxNorm: 718889 1 Tablet(s) PO QD No Start Date 12/24 Inactive loperamide 2 mg tablet RxNorm: 854507 Tablet(s) PO PRN No Start Date 06/07/2016 Inactive Levemir FlexTouch U-100 Insulin 100 unit/mL (3 mL) sub cutaneous pen RxNorm: 493917 22 Unit(s) SQ QD No Start Date 12/21/2019 Inactive Janumet 50 mg-1,000 mg Tab RxNorm: 150728 1 Tablet(s) PO BID No Sta rt Date 01/12/2010 Inactive Levemir U-100 Insulin 100 unit/mL subcutaneous solution RxNo rm: 021099 10 Unit(s) SQ QHS No Start Date 12/08/2018 Inactive Medrol (Gui) 4 mg tablets in a dose pack RxNorm: 540283 Tablet(s) PO Use as directed No Start Date 12/22/2018 Inactive aspirin 325 mg tablet RxNorm: 134926 1 Tablet(s) PO QD No Start Date 08/09/2016 Inactive Efudex 5 % Topical Cream RxNorm: 940918 Application TOP QD prn fto skin lesion No Start Date 08/12/2013 Inactive nitroglycerin 0.4 mg sublingual tablet RxNorm: 571968 Tablet(s) SL as needed No Start Date 12/18/2018 Inactive levofloxacin 500 mg tablet RxNorm: 253185 1 Tablet(s) PO QD No Star t Date 08/06/2018 Inactive ferrous sulfate 325 mg (65 mg iron) tablet RxNorm: 060768 1 Tab let(s) PO QHS No Start Date 04/16/2017 Inactive fluorouracil 5 % topical cream RxNorm: 311053 1 TOP No Start James e 08/06/2018 Inactive Vitamin D3 1,000 unit capsule RxNorm: 067403 1 Capsule(s) PO QD No Start Date 02/03/2018 Inactive Hydrocodone-Acetaminophen 7.5 mg-750 mg Tab RxNorm: 368087 1 Ta blet(s) PO PRN No Start Date 08/09/2014 Inactive pantoprazole 40 mg tablet,delayed release RxNorm: 589389 1 Tabl et(s) PO QD No Start Date 01/22/2018 Inactive omeprazole 20 mg Cap, Delayed Release RxNorm: 324996 2 Capsule( s) PO QD No Start Date 09/12/2010 Inactive DuoNeb 0.5 mg-3 mg(2.5 mg base)/3 mL solution for nebulizati on RxNorm: 0509569 INH Q4H as needed No Start Date 10/22/2018 Inactive Lyrica 75 mg capsule RxNorm: 031417 2 Capsule(s) PO QHS No Start Da te 03/09/2019 Inactive isosorbide mononitrate ER 30 mg tablet,extended release 24 h r RxNorm: 983444 1 Tablet(s) PO QD No Start Date 12/08/2018 Inactive Tradjenta 5 mg tablet RxNorm: 8411727 1 Tablet(s) PO QD No Start Da te 08/09/2016 Inactive Tudorza Pressair 400 mcg/actuation breath activated RxNorm: 4098309 1 Puff(s) INH BID No Start Date 06/17/2017 Inactive Lantus Solostar 100 unit/mL (3 mL) Sub-Q Insulin Pen RxNorm: 030821 30 Unit(s) SQ QD No Start Date 06/18/2011 Inactive Requip 4 mg tablet RxNorm: 358168 1 Tablet(s) PO BID No Start Date Inactive Symbicort 160 mcg-4.5 mcg/actuation HFA aerosol inhaler RxNo rm: 0983602 2 Puff(s) INH BID No Start Date 07/11/2018 Inactive atorvastatin 40 mg tablet RxNorm: 443260 1 Tablet(s) PO QD No Start Date 12/18/2018 Inactive tramadol 50 mg tablet RxNorm: 746485 1 Tablet(s) PO TID as needed for pain (take alone with two extra strength tylenol) No Start Date 01/16/2019 Inactive Symbicort 160 mcg-4.5 mcg/actuation HFA aerosol inhaler RxNo rm: 8047936 2 Puff(s) INH BID No Start Date 08/12/2013 Inactive Vitamin D3 5,000 unit tablet RxNorm: 769122 1 Tablet(s) PO QD No St art Date 05/08/2019 Inactive albuterol sulfate 2.5 mg/3 mL (0.083 %) Neb Solution RxNorm: 054380 1 Unit Dose INH Q4H prn wheezing or shortness of breath No Start Date 01/29/2013 Inac tive Ranexa 500 mg tablet,extended release RxNorm: 153416 1 Tablet(s ) PO BID No Start Date 02/03/2018 Inactive Advair Diskus 500 mcg-50 mcg/dose powder for inhalation RxNo rm: 5740972 1 Puff(s) INH BID No Start Date 08/09/2016 Inactive clopidogrel 75 mg tablet RxNorm: 758315 1 Tablet(s) PO QD No Start Date 05/01/2018 Inactive metformin 1,000 mg Tab RxNorm: 334413 1 Tablet(s) PO BID No Start D ate 08/12/2013 Inactive Silenor 3 mg tablet RxNorm: 566817 1 Tablet(s) PO QHS No Start Date 0 04/04/2017 Inactive Medrol (Gui) 4 mg tablets in a dose pack RxNorm: 787725 Tablet(s) PO as directed No Start Date 01/19/2013 Inactive Requip 4 mg tablet RxNorm: 357365 1 Tablet(s) PO BID No Start Date Inactive clopidogrel 75 mg tablet RxNorm: 702828 1 Tablet(s) PO QD No Start Date 02/03/2018 Inactive Tradjenta 5 mg tablet RxNorm: 6836656 1 Tablet(s) PO QD No Start Da te 02/03/2018 Inactive ProAir HFA 90 mcg/Actuation Aerosol Inhaler RxNorm: 498391 2 Pu ff(s) INH PRN No Start Date 07/09/2012 Inactive Tessalon Perles 100 mg capsule RxNorm: 515367 1 Capsule (s) PO TID as needed for cough No Start Date 08/30/2014 Inactive ferrous sulfate 325 mg (65 mg iron) tablet RxNorm: 689943 1 Tab let(s) PO QD No Start Date 05/08/2019 Inactive pioglitazone 15 mg tablet RxNorm: 728376 1 Tablet(s) PO QD No Start Date 09/20/2014 Inactive Lexapro Oral RxNorm: Oral No Start Date 12/13/2009 Inactive Breo Ellipta 100 mcg-25 mcg/dose powder for inhalation RxNor m: 6888372 1 Puff(s) INH BID No Start Date 05/31/2015 Inactive Tylenol Extra Strength 500 mg tablet RxNorm: 122437 2 T ablet(s) PO QHS along with ropironole No Start Date 12/18/2018 Inactive tramadol 50 mg tablet RxNorm: 076193 1 Tablet(s) PO QID as need ed for pain No Start Date 12/24/2018 Inactive cyclobenzaprine 10 mg Tab RxNorm: 278033 Oral No Start Date 12/22 Inactive Levemir FlexTouch 100 unit/mL (3 mL) subcutaneous insulin pe n RxNorm: 535538 10 Unit(s) SQ QD No Start Date 03/08/2016 Inactive amlodipine 5 mg tablet RxNorm: 145623 1 Tablet(s) PO QD No Start Da te 08/09/2016 Inactive Novolog 100 unit/mL subcutaneous solution RxNorm: 772311 10 Uni t(s) SQ AC No Start Date 08/12/2017 Inactive Levemir FlexTouch 100 unit/mL (3 mL) subcutaneous insulin pe n RxNorm: 214204 25 Unit(s) SQ QPM No Start Date 08/06/2018 Inactive Farxiga 5 mg tablet RxNorm: 4864321 1 Tablet(s) PO QD No Start Date 0 10/05/2014 Inactive DuoNeb 0.5 mg-3 mg(2.5 mg base)/3 mL solution for nebulizati on RxNorm: 9590190 inhalation No Start Date 09/23/2014 Inactive Doxycycline 100 mg Cap RxNorm: 954108 1 Capsule(s) PO BID No Start Date 12/18/2010 Inactive Vitamin B12 1000mcg Tablet RxNorm: 1 Tablet(s) PO QD No Start Date 02/03/2018 Inactive Hydrocodone-Acetaminophen 7.5 mg-750 mg Tab RxNorm: 048274 1 Ta blet(s) PO Q6-8H No Start Date 12/22/2009 Inactive Xigduo XR 5 mg-1,000 mg tablet,extended release RxNorm: 1593 833 1 Tablet(s) PO QD No Start Date 05/31/2015 Inactive cyanocobalamin (vit B-12) 1,000 mcg/mL injection solution Rx Norm: 025595 1 injection weekly for 4 weeks 1 Milliliter(s) Inj No Start Date 05/08/2019 Inactive AndroGel 1.25 g/Actuation (1%) Transdermal Gel Pump RxNorm: 2840714 TD Apply 4pumps daily No Start Date 08/21/2011 Inactive Actoplus MET 15 mg-850 mg Tab RxNorm: 000199 1 Tablet(s) PO BID No Start Date 12/18/2010 Inactive Amaryl 2 mg tablet RxNorm: 504931 1 Tablet(s) PO BID No Start Date Inactive Levemir FlexTouch 100 unit/mL (3 mL) subcutaneous insulin pe n RxNorm: 927313 20 Unit(s) SQ QD No Start Date 06/12/2016 Inactive Symbicort 160 mcg-4.5 mcg/actuation HFA aerosol inhaler RxNo rm: 6527582 2 Puff(s) INH BID No Start Date 02/03/2018 Inactive Symbicort 160 mcg-4.5 mcg/Actuation Inhalation HFA Aer osol Inhaler RxNorm: 1105020 2 INH BID No Start Date 12/18/2010 Inactive Farxiga 5 mg tablet RxNorm: 2554533 1 Tablet(s) PO QD No Start Date 0 03/01/2015 Inactive magnesium oxide 400 mg (241.3 mg magnesium) tablet RxNorm: 1 92118 1 Tablet(s) PO QHS No Start Date 05/08/2019 Inactive Tradjenta 5 mg tablet RxNorm: 1120946 2 Tablet(s) PO QD No Start Da te 07/21/2015 Inactive Levemir FlexTouch U-100 Insulin 100 unit/mL (3 mL) sub cutaneous pen RxNorm: 716580 40 Unit(s) SQ QD No Start Date 08/06/2018 Inactive Sinemet CR 50 mg-200 mg tablet,extended release RxNorm: 8343 41 1 Tablet(s) PO QHS No Start Date 09/24/2017 Inactive metoprolol tartrate 25 mg tablet RxNorm: 311789 1/2 Tablet(s) P O BID No Start Date 02/03/2018 Inactive Requip 4 mg tablet RxNorm: 668197 1 Tablet(s) PO QHS No Start Date Inactive Ventolin HFA 90 mcg/actuation aerosol inhaler RxNorm: 814255 2 Puff(s) INH Q4H as needed No Start Date 04/22/2018 Inactive B12 5,000 mcg-100 mcg sublingual lozenge RxNorm: 149545 IM as d irected No Start Date 05/08/2019 Inactive ropinirole 1 mg tablet RxNorm: 719854 1 Tablet(s) PO QHS No Start D ate 08/06/2018 Inactive Percocet 5 mg-325 mg tablet RxNorm: 0631084 1 Tablet(s) PO Q4H as needed for pain (Dr Rizzo) No Start Date 10/22/2018 Inactive hydrocodone 5 mg-acetaminophen 325 mg tablet RxNorm: 413091 1 Tablet(s) PO TID as needed for pain for severe pain No Start Date 04/16/2014 Inactive scopolamine 1.5 mg 72 hr Transderm Patch RxNorm: 835865 Application TD Q72H for dizziness No Start Date 08/12/2013 Inactive ipratropium-albuterol 0.5 mg-3 mg(2.5 mg base)/3 mL ne bulization soln RxNorm: 5136690 1 Unit Dose INH Q4H No Start Date 01/16/2019 Inactive Medication Administered No Medication Administered data Immunizations Vaccine Codes Date Status Influenza CVX: 135 08/07/2019 Complete Pneumococcal CVX: 33 07/24/2017 Complete Influenza CVX: 135 06/13/2016 Complete Pneumococcal CVX: 133 06/13/2016 Complete Influenza CVX: 141 07/10/2012 Pneumovax Unknown 07/10/2012 Results Observation Observation Code Item Item Code Result Date S ervice Location COMPLETE BLOOD COUNT [id number] WBC 5.5 10e9/L 06/17/20 19 Unknown COMPLETE BLOOD COUNT [id number] RBC 3.92 10e12/L 2018 Unknown COMPLETE BLOOD COUNT [id number] HEMOGLOBIN 10.9 g/dL 06/17/20 19 Unknown COMPLETE BLOOD COUNT 3561603 HEMATOCRIT 34.8 % 06/17/20 19 Unknown COMPLETE BLOOD COUNT 2546077 MCV 88.8 fL 9 Unknown COMPLETE BLOOD COUNT 4678289 MCH 27.8 pg 9 Unknown COMPLETE BLOOD COUNT 8081143 MCHC 31.3 g/dL 9 Unknown COMPLETE BLOOD COUNT 3675899 PLATELET COUNT 239 10e9/L Unknown COMPLETE BLOOD COUNT 9464248 Mean Plt Volume 10.0 fL Unknown COMPLETE BLOOD COUNT 1393017 Neut Auto 68.0 % 9 Unknown COMPLETE BLOOD COUNT 9320012 Lymph Auto 14.8 % 06/17/20 19 Unknown COMPLETE BLOOD COUNT 5712740 Ceiba Auto 13.1 % 9 Unknown COMPLETE BLOOD COUNT 8609041 RDW 14.7 % 9 Unknown COMPLETE BLOOD COUNT 6959977 Eos Auto 3.6 % 9 Unknown COMPLETE BLOOD COUNT 9104058 Baso Auto 0.5 % 9 Unknown COMPLETE BLOOD COUNT 3064021 Neutrophil Abs 3.74 10e9/L Unknown COMPLETE BLOOD COUNT 1024352 Lymphocyte Abs 0.81 10e9/L Unknown COMPLETE BLOOD COUNT 9721230 Monocyte Abs 0.72 10e9/L 05/26 Unknown COMPLETE BLOOD COUNT 1394045 Eosinophil Abs 0.20 10e9/L Unknown COMPLETE BLOOD COUNT 3378841 RDW-SD 46.4 fL 9 Unknown COMPLETE BLOOD COUNT 3026310 Basophil Abs 0.03 10e9/L 05/26 Unknown IRON 24217 Iron 36 ug/dL 06/17/2019 Unknown VITAMIN B 12 93997 VITAMIN B12 540 pg/mL 06/17/2019 Unkn own GFR CALC 2609241 GFR Non Afr Amr 59 mL/min 06/17/2019 Unk nown GFR CALC 0553751 GFR Afr Amr >60 mL/min 06/17/2019 Unknow n ERYTHROCYTE SEDIMENTATION RATE 42792 Sed Rate 34 mm/hr 06/17/2019 Unknown THYROID STIMULATING HORMONE 82326 TSH 2.217 uIU/mL 06/17/2019 Unknown COMPREHENSIVE METABOLIC 06712 AST 12 U/L 2018 Unknown COMPREHENSIVE METABOLIC 56111 ALT 11 U/L 2018 Unknown COMPREHENSIVE METABOLIC 48008 BUN 17 mg/dL 2018 Unknown COMPREHENSIVE METABOLIC 53649 ALBUMIN 3.9 g/dL 2018 Unknown COMPREHENSIVE METABOLIC 64035 CHLORIDE 103 mmol/L 06/17 Unknown COMPREHENSIVE METABOLIC 12845 Bili Total 0.4 mg/dL 06/17 Unknown COMPREHENSIVE METABOLIC 45130 ALK PHOS 51 U/L 2018 Unknown COMPREHENSIVE METABOLIC 38459 SODIUM 140 mmol/L 06/17 Unknown COMPREHENSIVE METABOLIC 69239 CREATININE 1.20 mg/dL 05/26 Unknown COMPREHENSIVE METABOLIC 78471 CALCIUM 8.9 mg/dL 2018 Unknown COMPREHENSIVE METABOLIC 27064 POTASSIUM 4.5 mmol/L 06/17 Unknown COMPREHENSIVE METABOLIC 23804 Total Protein 6.1 g/dL Unknown COMPREHENSIVE METABOLIC 11790 Glucose 108 mg/dL 2018 Unknown COMPREHENSIVE METABOLIC 71731 Bicarbonate 27 mmol/L 05/26 Unknown COMPREHENSIVE METABOLIC 13817 AGAP 10 mmol/L 2018 Unknown FERRITIN 27149 FERRITIN 35.5 ng/mL 05/08/2019 Unknown VITAMIN D TOTAL (25 HYDROXY) 03848 Vitamin D 25 OH 26.0 ng/mL 05/08/2019 Unknown GLYCOSYLATED HEMOGLOBIN TEST 30632 Hgb A1c 69708-9 8.2 % 0 05/08/2019 Unknown MEAN GLUC 9121136 Calc Mean Gluc 189 mg/dL 05/08/2019 Unkn own GFR CALC 6111060 GFR Non Afr Amr >60 mL/min 05/08/2019 Un known GFR CALC 8131762 GFR Afr Amr >60 mL/min 05/08/2019 Unknow n VITAMIN B 12 12372 VITAMIN B12 197 pg/mL 05/08/2019 Unkn own IRON 95362 Iron 34 ug/dL 05/08/2019 Unknown COMPLETE BLOOD COUNT 0452004 WBC 6.9 10e9/L 05/08/20 19 Unknown COMPLETE BLOOD COUNT 7107310 RBC 3.95 10e12/L 2018 Unknown COMPLETE BLOOD COUNT 3617662 HEMOGLOBIN 11.1 g/dL 05/08/20 19 Unknown COMPLETE BLOOD COUNT 7365152 HEMATOCRIT 34.9 % 05/08/20 19 Unknown COMPLETE BLOOD COUNT 1100823 MCV 88.4 fL 9 Unknown COMPLETE BLOOD COUNT 7813290 MCH 28.1 pg 9 Unknown COMPLETE BLOOD COUNT 7295801 MCHC 31.8 g/dL 9 Unknown COMPLETE BLOOD COUNT 2446313 PLATELET COUNT 217 10e9/L Unknown COMPLETE BLOOD COUNT 9717228 Mean Plt Volume 9.6 fL Unknown COMPLETE BLOOD COUNT 2005105 Neut Auto 77.6 % 9 Unknown COMPLETE BLOOD COUNT 8992700 Lymph Auto 10.7 % 05/08/20 19 Unknown COMPLETE BLOOD COUNT 5129460 Ceiba Auto 10.4 % 9 Unknown COMPLETE BLOOD COUNT 0304714 RDW 14.7 % 9 Unknown COMPLETE BLOOD COUNT 9603441 Eos Auto 1.2 % 9 Unknown COMPLETE BLOOD COUNT 2615995 Baso Auto 0.1 % 9 Unknown COMPLETE BLOOD COUNT 6885243 Neutrophil Abs 5.35 10e9/L Unknown COMPLETE BLOOD COUNT 0935035 Lymphocyte Abs 0.74 10e9/L Unknown COMPLETE BLOOD COUNT 3017499 Monocyte Abs 0.72 10e9/L 04/24 Unknown COMPLETE BLOOD COUNT 7879491 Eosinophil Abs 0.08 10e9/L Unknown COMPLETE BLOOD COUNT 4976887 RDW-SD 46.6 fL 9 Unknown COMPLETE BLOOD COUNT 6502657 Basophil Abs 0.01 10e9/L 04/24 Unknown COMPREHENSIVE METABOLIC 74434 AST 13 U/L 2018 Unknown COMPREHENSIVE METABOLIC 27424 ALT 9 U/L 2018 Unknown COMPREHENSIVE METABOLIC 98432 BUN 18 mg/dL 2018 Unknown COMPREHENSIVE METABOLIC 95150 ALBUMIN 4.3 g/dL 2018 Unknown COMPREHENSIVE METABOLIC 97438 CHLORIDE 99 mmol/L 2018 Unknown COMPREHENSIVE METABOLIC 26286 Bili Total 0.4 mg/dL 05/08 Unknown COMPREHENSIVE METABOLIC 18366 ALK PHOS 48 U/L 2018 Unknown COMPREHENSIVE METABOLIC 33743 SODIUM 137 mmol/L 05/08 Unknown COMPREHENSIVE METABOLIC 57324 CREATININE 0.79 mg/dL 04/24 Unknown COMPREHENSIVE METABOLIC 54665 CALCIUM 9.5 mg/dL 2018 Unknown COMPREHENSIVE METABOLIC 67080 POTASSIUM 4.0 mmol/L 05/08 Unknown COMPREHENSIVE METABOLIC 94389 Total Protein 6.3 g/dL Unknown COMPREHENSIVE METABOLIC 20900 Glucose 232 mg/dL 2018 Unknown COMPREHENSIVE METABOLIC 73265 Bicarbonate 27 mmol/L 04/24 Unknown COMPREHENSIVE METABOLIC 75404 AGAP 11 mmol/L 2018 Unknown GLYCOSYLATED HEMOGLOBIN TEST 76434 Hgb A1c 47263-8 8.9 % 0 12/10/2018 Unknown MEAN GLUC 9453541 Calc Mean Gluc 209 mg/dL 12/10/2018 Unkn own LIPID GROUP 79087 Cholesterol 145 mg/dL 12/09/2018 Unkno wn LIPID GROUP 23108 Triglyceride 235 mg/dL 12/09/2018 Unkn own LIPID GROUP 85613 HDL CHOLESTEROL 40 mg/dL 12/09/2018 U nknown LIPID GROUP 95993 Chol/HDL Ratio 3.62 ratio 12/09/2018 U nknown LIPID GROUP 22867 NON-HDL Chol 105 mg/dL 12/09/2018 Unkn own LIPID GROUP 95386 LDL Cholesterol 58 mg/dL 12/09/2018 U nknown THYROID STIMULATING HORMONE 22942 TSH 1.071 uIU/mL 12/09/2018 Unknown GFR CALC 3780179 GFR Non Afr Amr >60 mL/min 12/09/2018 Un known GFR CALC 7809635 GFR Afr Amr >60 mL/min 12/09/2018 Unknow n COMPLETE BLOOD COUNT 7120015 WBC 7.6 10e9/L 12/10/19 19 Unknown COMPLETE BLOOD COUNT 6728152 RBC 3.97 10e12/L 2018 Unknown COMPLETE BLOOD COUNT 5372157 HEMOGLOBIN 11.4 g/dL 12/10/19 19 Unknown COMPLETE BLOOD COUNT 7538580 HEMATOCRIT 35.8 % 12/10/19 19 Unknown COMPLETE BLOOD COUNT 1168126 MCV 90.2 fL 9 Unknown COMPLETE BLOOD COUNT 7721699 MCH 28.7 pg 9 Unknown COMPLETE BLOOD COUNT 8460492 MCHC 31.8 g/dL 9 Unknown COMPLETE BLOOD COUNT 1348626 PLATELET COUNT 200 10e9/L Unknown COMPLETE BLOOD COUNT 3538323 Mean Plt Volume 10.1 fL Unknown COMPLETE BLOOD COUNT 6096643 Neut Auto 79.0 % 9 Unknown COMPLETE BLOOD COUNT 9074600 Lymph Auto 8.3 % 12/10/19 19 Unknown COMPLETE BLOOD COUNT 3608405 Ceiba Auto 10.8 % 9 Unknown COMPLETE BLOOD COUNT 1507593 RDW 14.6 % 9 Unknown COMPLETE BLOOD COUNT 0635745 Eos Auto 1.5 % 9 Unknown COMPLETE BLOOD COUNT 2679593 Baso Auto 0.4 % 9 Unknown COMPLETE BLOOD COUNT 1890924 Neutrophil Abs 6.00 10e9/L Unknown COMPLETE BLOOD COUNT 5027548 Lymphocyte Abs 0.63 10e9/L Unknown COMPLETE BLOOD COUNT 8447068 Monocyte Abs 0.82 10e9/L 11/22 Unknown COMPLETE BLOOD COUNT 6914404 Eosinophil Abs 0.11 10e9/L Unknown COMPLETE BLOOD COUNT 2227145 RDW-SD 46.9 fL 9 Unknown COMPLETE BLOOD COUNT 4647952 Basophil Abs 0.03 10e9/L 11/22 Unknown COMPREHENSIVE METABOLIC 26533 AST 11 U/L 2018 Unknown COMPREHENSIVE METABOLIC 21839 ALT 11 U/L 2018 Unknown COMPREHENSIVE METABOLIC 80488 BUN 21 mg/dL 2018 Unknown COMPREHENSIVE METABOLIC 95000 ALBUMIN 4.7 g/dL 2018 Unknown COMPREHENSIVE METABOLIC 19609 CHLORIDE 99 mmol/L 2018 Unknown COMPREHENSIVE METABOLIC 41744 Bili Total 0.4 mg/dL 12/09 Unknown COMPREHENSIVE METABOLIC 53427 ALK PHOS 73 U/L 2018 Unknown COMPREHENSIVE METABOLIC 56419 SODIUM 137 mmol/L 12/09 Unknown COMPREHENSIVE METABOLIC 92799 CREATININE 1.12 mg/dL 11/22 Unknown COMPREHENSIVE METABOLIC 87669 CALCIUM 9.4 mg/dL 2018 Unknown COMPREHENSIVE METABOLIC 97787 POTASSIUM 4.2 mmol/L 12/09 Unknown COMPREHENSIVE METABOLIC 40587 Total Protein 6.8 g/dL Unknown COMPREHENSIVE METABOLIC 08571 Glucose 194 mg/dL 2018 Unknown COMPREHENSIVE METABOLIC 68213 Bicarbonate 30 mmol/L 11/22 Unknown COMPREHENSIVE METABOLIC 85967 AGAP 8 mmol/L 2018 Unknown FREE T4 20679 T4 Free 0.86 ng/dL 12/09/2018 Unknown COMPLETE BLOOD COUNT 5727386 WBC 6.8 10e9/L 04/17/20 17 Unknown COMPLETE BLOOD COUNT 2963484 RBC 3.86 10e12/L 2016 Unknown COMPLETE BLOOD COUNT 5193938 HEMOGLOBIN 9.8 g/dL 04/17/20 17 Unknown COMPLETE BLOOD COUNT 6221112 HEMATOCRIT 31.1 % 04/17/20 17 Unknown COMPLETE BLOOD COUNT 1275408 MCV 80.6 fL 7 Unknown COMPLETE BLOOD COUNT 3134418 MCH 25.4 pg 7 Unknown COMPLETE BLOOD COUNT 6109520 MCHC 31.5 g/dL 7 Unknown COMPLETE BLOOD COUNT 3482035 PLATELET COUNT 247 10e9/L Unknown COMPLETE BLOOD COUNT 6586820 Mean Plt Volume 9.7 fL Unknown COMPLETE BLOOD COUNT 5924599 Neut Auto 74.1 % 7 Unknown COMPLETE BLOOD COUNT 3373359 Lymph Auto 12.0 % 04/17/20 17 Unknown COMPLETE BLOOD COUNT 0890376 Ceiba Auto 10.8 % 7 Unknown COMPLETE BLOOD COUNT 1098079 RDW 15.9 % 7 Unknown COMPLETE BLOOD COUNT 1816510 Eos Auto 2.5 % 7 Unknown COMPLETE BLOOD COUNT 0416177 Baso Auto 0.6 % 7 Unknown COMPLETE BLOOD COUNT 2700784 Neutrophil Abs 5.04 10e9/L Unknown COMPLETE BLOOD COUNT 7711284 Lymphocyte Abs 0.82 10e9/L Unknown COMPLETE BLOOD COUNT 2763230 Monocyte Abs 0.73 10e9/L 03/25 Unknown COMPLETE BLOOD COUNT 3693171 Eosinophil Abs 0.17 10e9/L Unknown COMPLETE BLOOD COUNT 2542742 RDW-SD 44.4 fL 7 Unknown COMPLETE BLOOD COUNT 0367931 Basophil Abs 0.04 10e9/L 03/25 Unknown MEAN GLUC 3781812 Calc Mean Gluc 223 mg/dL 04/17/2017 Unkn own GFR CALC 3837769 GFR Non Afr Amr >60 mL/min 04/17/2017 Un known GFR CALC 9626066 GFR Afr Amr >60 mL/min 04/17/2017 Unknow n GLYCOSYLATED HEMOGLOBIN TEST 45069 Hgb A1c 65784-8 9.4 % 0 04/17/2017 Unknown IRON 82273 Iron 37 ug/dL 04/17/2017 Unknown VITAMIN B 12 26311 VITAMIN B12 280 pg/mL 04/17/2017 Unkn own THYROID STIMULATING HORMONE 89359 TSH 2.481 uIU/mL 04/17/2017 Unknown COMPREHENSIVE METABOLIC 79987 AST 13 U/L 2016 Unknown COMPREHENSIVE METABOLIC 93759 ALT 12 U/L 2016 Unknown COMPREHENSIVE METABOLIC 95011 BUN 18 mg/dL 2016 Unknown COMPREHENSIVE METABOLIC 16240 ALBUMIN 4.7 g/dL 2016 Unknown COMPREHENSIVE METABOLIC 76448 CHLORIDE 103 mmol/L 04/17 Unknown COMPREHENSIVE METABOLIC 77084 Bili Total 0.4 mg/dL 04/17 Unknown COMPREHENSIVE METABOLIC 11702 ALK PHOS 49 U/L 2016 Unknown COMPREHENSIVE METABOLIC 27337 SODIUM 140 mmol/L 04/17 Unknown COMPREHENSIVE METABOLIC 06347 CREATININE 1.14 mg/dL 03/25 Unknown COMPREHENSIVE METABOLIC 74120 CALCIUM 9.4 mg/dL 2016 Unknown COMPREHENSIVE METABOLIC 72201 POTASSIUM 4.4 mmol/L 04/17 Unknown COMPREHENSIVE METABOLIC 62833 Total Protein 6.7 g/dL Unknown COMPREHENSIVE METABOLIC 02377 Glucose 266 mg/dL 2016 Unknown COMPREHENSIVE METABOLIC 29431 Bicarbonate 25 mmol/L 03/25 Unknown COMPREHENSIVE METABOLIC 31543 AGAP 12 mmol/L 2016 Unknown FERRITIN 00741 FERRITIN 10.0 ng/mL 04/17/2017 Unknown COMPLETE BLOOD COUNT 8933223 WBC 6.8 10e9/L 12/22/19 17 Unknown COMPLETE BLOOD COUNT 4094211 RBC 3.70 10e12/L 2016 Unknown COMPLETE BLOOD COUNT 2501502 HEMOGLOBIN 8.0 g/dL 12/22/19 17 Unknown COMPLETE BLOOD COUNT 6227586 HEMATOCRIT 26.7 % 12/22/19 17 Unknown COMPLETE BLOOD COUNT 6059346 MCV 72.2 fL 7 Unknown COMPLETE BLOOD COUNT 7031217 MCH 21.6 pg 7 Unknown COMPLETE BLOOD COUNT 4489363 MCHC 30.0 g/dL 7 Unknown COMPLETE BLOOD COUNT 4445955 PLATELET COUNT 290 10e9/L Unknown COMPLETE BLOOD COUNT 9293452 Mean Plt Volume 9.3 fL Unknown COMPLETE BLOOD COUNT 9755173 Neut Auto 80.2 % 7 Unknown COMPLETE BLOOD COUNT 8787285 Lymph Auto 9.8 % 12/22/19 17 Unknown COMPLETE BLOOD COUNT 7772199 Ceiba Auto 8.1 % 7 Unknown COMPLETE BLOOD COUNT 8086285 RDW 17.4 % 7 Unknown COMPLETE BLOOD COUNT 4540709 Eos Auto 1.5 % 7 Unknown COMPLETE BLOOD COUNT 0965389 Baso Auto 0.4 % 7 Unknown COMPLETE BLOOD COUNT 5531578 Neutrophil Abs 5.45 10e9/L Unknown COMPLETE BLOOD COUNT 3848171 Lymphocyte Abs 0.67 10e9/L Unknown COMPLETE BLOOD COUNT 2996850 Monocyte Abs 0.55 10e9/L 11/24 Unknown COMPLETE BLOOD COUNT 4924819 Eosinophil Abs 0.10 10e9/L Unknown COMPLETE BLOOD COUNT 5425943 RDW-SD 44.1 fL 7 Unknown COMPLETE BLOOD COUNT 9906501 Basophil Abs 0.03 10e9/L 11/24 Unknown COMPLETE BLOOD COUNT 6986039 WBC 7.6 10e9/L 12/13/19 17 Unknown COMPLETE BLOOD COUNT 4485265 RBC 3.71 10e12/L 2016 Unknown COMPLETE BLOOD COUNT 3830164 HEMOGLOBIN 8.0 g/dL 12/13/19 17 Unknown COMPLETE BLOOD COUNT 8991605 HEMATOCRIT 27.3 % 12/13/19 17 Unknown COMPLETE BLOOD COUNT 9887211 MCV 73.6 fL 7 Unknown COMPLETE BLOOD COUNT 4244798 MCH 21.6 pg 7 Unknown COMPLETE BLOOD COUNT 4406372 MCHC 29.3 g/dL 7 Unknown COMPLETE BLOOD COUNT 1188956 PLATELET COUNT 330 10e9/L Unknown COMPLETE BLOOD COUNT 6910558 Mean Plt Volume 9.7 fL Unknown COMPLETE BLOOD COUNT 7705242 Neut Auto 73.2 % 7 Unknown COMPLETE BLOOD COUNT 5719752 Lymph Auto 14.5 % 12/13/19 17 Unknown COMPLETE BLOOD COUNT 9918400 Ceiba Auto 10.5 % 7 Unknown COMPLETE BLOOD COUNT 6570378 RDW 17.3 % 7 Unknown COMPLETE BLOOD COUNT 4435175 Eos Auto 1.3 % 7 Unknown COMPLETE BLOOD COUNT 3410235 Baso Auto 0.5 % 7 Unknown COMPLETE BLOOD COUNT 0561629 Neutrophil Abs 5.56 10e9/L Unknown COMPLETE BLOOD COUNT 0451551 Lymphocyte Abs 1.10 10e9/L Unknown COMPLETE BLOOD COUNT 5260658 Monocyte Abs 0.80 10e9/L 11/23 Unknown COMPLETE BLOOD COUNT 8555329 Eosinophil Abs 0.10 10e9/L Unknown COMPLETE BLOOD COUNT 5811355 RDW-SD 45.2 fL 7 Unknown COMPLETE BLOOD COUNT 0193395 Basophil Abs 0.04 10e9/L 11/23 Unknown IRON 04431 Iron 69 ug/dL 03/09/2016 Unknown VITAMIN B 12 42858 VITAMIN B12 311 pg/mL 03/09/2016 Unkn own MEAN GLUC 6868966 Mean Glucose 260 mg/dL 03/07/2016 Unknow n GLYCOSYLATED HEMOGLOBIN TEST 50526 Hgb A1c 96858-5 10.7 % 0 03/07/2016 Unknown COMPREHENSIVE METABOLIC 15002 AST 14 U/L 2015 Unknown COMPREHENSIVE METABOLIC 85261 ALT 21 U/L 2015 Unknown COMPREHENSIVE METABOLIC 78648 BUN 27 mg/dL 2015 Unknown COMPREHENSIVE METABOLIC 38344 ALBUMIN 4.5 g/dL 2015 Unknown COMPREHENSIVE METABOLIC 03601 CHLORIDE 101 mmol/L 03/06 Unknown COMPREHENSIVE METABOLIC 48753 Bili Total 0.4 mg/dL 03/06 Unknown COMPREHENSIVE METABOLIC 57815 ALK PHOS 49 U/L 2015 Unknown COMPREHENSIVE METABOLIC 87451 SODIUM 136 mmol/L 03/06 Unknown COMPREHENSIVE METABOLIC 81605 CREATININE 1.16 mg/dL 02/22 Unknown COMPREHENSIVE METABOLIC 23053 CALCIUM 9.9 mg/dL 2015 Unknown COMPREHENSIVE METABOLIC 22790 POTASSIUM 4.5 mmol/L 03/06 Unknown COMPREHENSIVE METABOLIC 01808 Total Protein 6.7 g/dL Unknown COMPREHENSIVE METABOLIC 75081 Glucose 245 mg/dL 2015 Unknown COMPREHENSIVE METABOLIC 63022 Bicarbonate 24 mmol/L 02/22 Unknown COMPREHENSIVE METABOLIC 20943 AGAP 11 mmol/L 2015 Unknown THYROID STIMULATING HORMONE 71947 TSH 0.775 uIU/mL 03/06/2016 Unknown TESTOSTERONE TOTAL 34547 Testos Total 96 ng/dL 03/06/20 16 Unknown LIPID GROUP 52978 Cholesterol 146 mg/dL 03/06/2016 Unkno wn LIPID GROUP 39997 Triglyceride 249 mg/dL 03/06/2016 Unkn own LIPID GROUP 25477 HDL CHOLESTEROL 46 mg/dL 03/06/2016 U nknown LIPID GROUP 03490 Chol/HDL Ratio 3.17 ratio 03/06/2016 U nknown LIPID GROUP 99799 NON-HDL Chol 100 mg/dL 03/06/2016 Unkn own LIPID GROUP 77455 LDL Cholesterol 50 mg/dL 03/06/2016 U nknown COMPLETE BLOOD COUNT 2219764 WBC 11.2 10e9/L 016 Unknown COMPLETE BLOOD COUNT 7562405 RBC 3.94 10e12/L 2015 Unknown COMPLETE BLOOD COUNT 6470459 HEMOGLOBIN 11.4 g/dL 03/06/20 16 Unknown COMPLETE BLOOD COUNT 6756623 HEMATOCRIT 33.7 % 03/06/20 16 Unknown COMPLETE BLOOD COUNT 1919386 MCV 85.5 fL 6 Unknown COMPLETE BLOOD COUNT 9468204 MCH 28.9 pg 6 Unknown COMPLETE BLOOD COUNT 9745014 MCHC 33.8 g/dL 6 Unknown COMPLETE BLOOD COUNT 5395698 PLATELET COUNT 204 10e9/L Unknown COMPLETE BLOOD COUNT 5648916 Mean Plt Volume 10.1 fL Unknown COMPLETE BLOOD COUNT 5028028 Neut Auto 85.9 % 6 Unknown COMPLETE BLOOD COUNT 3682193 Lymph Auto 6.8 % 03/06/20 16 Unknown COMPLETE BLOOD COUNT 4278718 Ceiba Auto 7.0 % 6 Unknown COMPLETE BLOOD COUNT 8545378 RDW 13.7 % 6 Unknown COMPLETE BLOOD COUNT 6381010 Eos Auto 0.1 % 6 Unknown COMPLETE BLOOD COUNT 3213347 Baso Auto 0.2 % 6 Unknown COMPLETE BLOOD COUNT 9489256 Neutrophil Abs 9.62 10e9/L Unknown COMPLETE BLOOD COUNT 4260376 Lymphoctye Abs 0.76 10e9/L Unknown COMPLETE BLOOD COUNT 5362132 Monocyte Abs 0.78 10e9/L 02/22 Unknown COMPLETE BLOOD COUNT 6840012 Eosinophil Abs 0.01 10e9/L Unknown COMPLETE BLOOD COUNT 8963896 RDW-SD 41.9 fL 6 Unknown COMPLETE BLOOD COUNT 0942515 Basophil Abs 0.02 10e9/L 02/22 Unknown FREE T4 48750 T4 Free 0.89 ng/dL 03/06/2016 Unknown GFR CALC 6785182 GFR Non Afr Amr >60 mL/min 03/06/2016 Un known GFR CALC 9052703 GFR Afr Amr >60 mL/min 03/06/2016 Unknow n PSA EQUIMOLAR JONATAN 11981 PSA Total 0.78 ng/mL 6 Unknown FREE T4 86228 FREE T4 0.90 NG/DL 07/01/2015 Unknown LIPID GROUP 92393 HDL TEST 44 MG/DL 07/01/2015 Unknown LIPID GROUP 78164 TRIG 303 MG/DL 07/01/2015 Unknown LIPID GROUP 43381 TEST LDL 56 MG/DL 07/01/2015 Unknown LIPID GROUP 77191 CHOL 161 MG/DL 07/01/2015 Unknown LIPID GROUP 31657 RCHOL/HDL 3.66 RATIO 07/01/2015 Unknow n LIPID GROUP 73466 NON-HDL CH 117 MG/DL 07/01/2015 Unknow n THYROID STIMULATING HORMONE 80377 TSH 1.783 uIU/ML 07/01/2015 Unknown COMPLETE BLOOD COUNT 2310211 WBC 6.6 10e9/L 07/01/20 15 Unknown COMPLETE BLOOD COUNT 5835553 RBC 4.18 10e12/L 2014 Unknown COMPLETE BLOOD COUNT 6981789 HGB 12.2 g/dL 5 Unknown COMPLETE BLOOD COUNT 5187904 HCT DET 37.0 % 5 Unknown COMPLETE BLOOD COUNT 4228209 MCV 88.5 fL 5 Unknown COMPLETE BLOOD COUNT 3487034 MCH 29.2 pg 5 Unknown COMPLETE BLOOD COUNT 6876528 MCHC 33.0 g/dL 5 Unknown COMPLETE BLOOD COUNT 2062085 PLT 224 10e9/L 07/01/20 15 Unknown COMPLETE BLOOD COUNT 5686269 MPV 10.4 fL 5 Unknown COMPLETE BLOOD COUNT 6553771 SUSIE % 72.6 % 5 Unknown COMPLETE BLOOD COUNT 8204193 LY % 14.1 % 5 Unknown COMPLETE BLOOD COUNT 6569612 MON % 10.2 % 5 Unknown COMPLETE BLOOD COUNT 3561787 EOS % 2.6 % 5 Unknown COMPLETE BLOOD COUNT 3655667 BASO % 0.5 % 5 Unknown COMPLETE BLOOD COUNT 3882269 RDW 14.1 % 5 Unknown COMPLETE BLOOD COUNT 0041698 ABS SUSIE 4.79 10e9/L 015 Unknown COMPLETE BLOOD COUNT 3044236 ABS LYMPH 0.93 10e9/L 015 Unknown COMPLETE BLOOD COUNT 2099274 ABS MONO 0.67 10e9/L 015 Unknown COMPLETE BLOOD COUNT 2942668 ABS EOS 0.17 10e9/L 015 Unknown COMPLETE BLOOD COUNT 2851394 ABS BASO 0.03 10e9/L 015 Unknown COMPLETE BLOOD COUNT 9475309 RDW-SD 43.9 fL 5 Unknown PSA EQUIMOLAR JONATAN 50129 PSA EQ 0.73 NG/ML 5 Unknown COMPREHENSIVE METABOLIC 84891 AST 24 U/L 2014 Unknown COMPREHENSIVE METABOLIC 97981 ALT 26 IU/L 2014 Unknown COMPREHENSIVE METABOLIC 39291 BUN 26 MG/DL 2014 Unknown COMPREHENSIVE METABOLIC 40422 ALBUMIN 4.6 GM/DL 2014 Unknown COMPREHENSIVE METABOLIC 86275 CHLORIDE 102 MMOL/L 06/01 Unknown COMPREHENSIVE METABOLIC 94387 BILI TOT 0.5 MG/DL 2014 Unknown COMPREHENSIVE METABOLIC 57777 ALK PHOS 56 U/L 2014 Unknown COMPREHENSIVE METABOLIC 64035 SODIUM 136 MMOL/L 06/01 Unknown COMPREHENSIVE METABOLIC 01598 CREATININE 1.16 MG/DL 04/2015 Unknown COMPREHENSIVE METABOLIC 88247 CALCIUM 9.8 MG/DL 2014 Unknown COMPREHENSIVE METABOLIC 31645 POTASSIUM 4.6 MMOL/L 06/01 Unknown COMPREHENSIVE METABOLIC 96803 PROT TOT 7.4 GM/DL 2014 Unknown COMPREHENSIVE METABOLIC 12433 Glucose 223 MG/DL 2014 Unknown COMPREHENSIVE METABOLIC 18213 BICARB 27 MMOL/L 2014 Unknown COMPREHENSIVE METABOLIC 42609 ANION GAP 7 MEQ/L 2014 Unknown GFR CALC 0415078 GFR AA >60 ML/MIN 06/01/2015 Unknown GFR CALC 8517005 GFR NON-AA >60 ML/MIN 06/01/2015 Unknown GLYCOSYLATED HEMOGLOBIN TEST 25514 A1C HPLC 83312-5 8.9 % 0 06/01/2015 Unknown GFR CALC 9372829 GFR AA >60 ML/MIN 02/25/2015 Unknown GFR CALC [id number] GFR NON-AA >60 ML/MIN 02/25/2015 Unknown COMPREHENSIVE METABOLIC 91144 AST 24 U/L 2014 Unknown COMPREHENSIVE METABOLIC 54263 ALT 25 IU/L 2014 Unknown COMPREHENSIVE METABOLIC 48263 BUN 14 MG/DL 2014 Unknown COMPREHENSIVE METABOLIC 28525 ALBUMIN 4.5 GM/DL 2014 Unknown COMPREHENSIVE METABOLIC 44035 CHLORIDE 99 MMOL/L 2014 Unknown COMPREHENSIVE METABOLIC 04326 BILI TOT 0.5 MG/DL 2014 Unknown COMPREHENSIVE METABOLIC 54282 ALK PHOS 48 U/L 2014 Unknown COMPREHENSIVE METABOLIC 66242 SODIUM 136 MMOL/L 02/25 Unknown COMPREHENSIVE METABOLIC 73311 CREATININE 0.97 MG/DL 12/2014 Unknown COMPREHENSIVE METABOLIC 29182 CALCIUM 9.9 MG/DL 2014 Unknown COMPREHENSIVE METABOLIC 94689 POTASSIUM 4.4 MMOL/L 02/25 Unknown COMPREHENSIVE METABOLIC 38829 PROT TOT 7.1 GM/DL 2014 Unknown COMPREHENSIVE METABOLIC 51764 Glucose 171 MG/DL 2014 Unknown COMPREHENSIVE METABOLIC 05451 BICARB 25 MMOL/L 2014 Unknown COMPREHENSIVE METABOLIC 06616 ANION GAP 12 MEQ/L 2014 Unknown PROTEIN/CREAT URINE WITH RATIO 53416|29066 PROT R U 19 MG/D L 08/27/2014 Unknown PROTEIN/CREAT URINE WITH RATIO 42140|46894 CREAT R U 111 MG/ DL 08/27/2014 Unknown PROTEIN/CREAT URINE WITH RATIO 48580|24599 XRATIO P/C 171 MG /G 08/27/2014 Unknown MICROALBUMIN URINE RANDOM 84911 MICRL MG/L 34.7 MG/L 12/2013 Unknown MICROALBUMIN URINE RANDOM 76252 XM.ALB/CRE 32.7 MG/GCR 1 10/28/2013 Unknown MICROALBUMIN URINE RANDOM 56632 CREAT MG/D 106 MG/DL 12/2013 Unknown MICROALBUMIN URINE RANDOM 41642 CRE/100 1.06 G/L 12/2013 Unknown COMPLETE BLOOD COUNT 2045442 WBC 7.1 10e9/L 08/05/20 14 Unknown COMPLETE BLOOD COUNT 1004691 RBC 4.35 10e12/L 2013 Unknown COMPLETE BLOOD COUNT 5210486 HGB 12.9 g/dL 4 Unknown COMPLETE BLOOD COUNT 7384308 HCT DET 39.4 % 4 Unknown COMPLETE BLOOD COUNT 5765816 MCV 90.6 fL 4 Unknown COMPLETE BLOOD COUNT 1513990 MCH 29.7 pg 4 Unknown COMPLETE BLOOD COUNT 8445826 MCHC 32.7 g/dL 4 Unknown COMPLETE BLOOD COUNT 9163567 PLT 240 10e9/L 08/05/20 14 Unknown COMPLETE BLOOD COUNT [id number] MPV 10.3 fL 4 Unknown COMPLETE BLOOD COUNT [id number] SUSIE % 70.0 % 4 Unknown COMPLETE BLOOD COUNT [id number] LY % 16.4 % 4 Unknown COMPLETE BLOOD COUNT [id number] MON % 9.2 % 4 Unknown COMPLETE BLOOD COUNT [id number] EOS % 3.8 % 4 Unknown COMPLETE BLOOD COUNT [id number] BASO % 0.6 % 4 Unknown COMPLETE BLOOD COUNT [id number] RDW 13.4 % 4 Unknown COMPLETE BLOOD COUNT [id number] ABS SUSIE 4.97 10e9/L 014 Unknown COMPLETE BLOOD COUNT [id number] ABS LYMPH 1.16 10e9/L 014 Unknown COMPLETE BLOOD COUNT [id number] ABS MONO 0.65 10e9/L 014 Unknown COMPLETE BLOOD COUNT [id number] ABS EOS 0.27 10e9/L 014 Unknown COMPLETE BLOOD COUNT [id number] ABS BASO 0.04 10e9/L 014 Unknown COMPLETE BLOOD COUNT [id number] RDW-SD 43.3 fL 4 Unknown FREE T4 53089 FREE T4 1.02 NG/DL 08/05/2014 Unknown GFR CALC 7479655 GFR AA >60 ML/MIN 08/05/2014 Unknown GFR CALC 1941229 GFR NON-AA >60 ML/MIN 08/05/2014 Unknown GLYCOSYLATED HEMOGLOBIN TEST 70030 A1C HPLC 88990-4 7.7 % 1 10/05/2013 Unknown COMPREHENSIVE METABOLIC 63198 AST 19 U/L 2013 Unknown COMPREHENSIVE METABOLIC 88405 ALT 21 IU/L 2013 Unknown COMPREHENSIVE METABOLIC 73713 BUN 25 MG/DL 2013 Unknown COMPREHENSIVE METABOLIC 35163 ALBUMIN 4.6 GM/DL 2013 Unknown COMPREHENSIVE METABOLIC 46538 CHLORIDE 103 MMOL/L 08/05 Unknown COMPREHENSIVE METABOLIC 54877 BILI TOT 0.4 MG/DL 2013 Unknown COMPREHENSIVE METABOLIC 69929 ALK PHOS 45 U/L 2013 Unknown COMPREHENSIVE METABOLIC 26313 SODIUM 138 MMOL/L 08/05 Unknown COMPREHENSIVE METABOLIC 96148 CREATININE 1.01 MG/DL 07/25 Unknown COMPREHENSIVE METABOLIC 34499 CALCIUM 9.8 MG/DL 2013 Unknown COMPREHENSIVE METABOLIC 31227 POTASSIUM 4.7 MMOL/L 08/05 Unknown COMPREHENSIVE METABOLIC 17797 PROT TOT 7.0 GM/DL 2013 Unknown COMPREHENSIVE METABOLIC 90377 Glucose 145 MG/DL 2013 Unknown COMPREHENSIVE METABOLIC 29900 BICARB 27 MMOL/L 2013 Unknown COMPREHENSIVE METABOLIC 42913 ANION GAP 8 MEQ/L 2013 Unknown THYROID STIMULATING HORMONE 25753 TSH 1.922 uIU/ML 08/05/2014 Unknown LIPID GROUP 84945 HDL TEST 47 MG/DL 08/05/2014 Unknown LIPID GROUP 50022 TRIG 224 MG/DL 08/05/2014 Unknown LIPID GROUP 81893 TEST LDL 125 MG/DL 08/05/2014 Unknown LIPID GROUP 51710 CHOL 217 MG/DL 08/05/2014 Unknown LIPID GROUP 87617 RCHOL/HDL 4.62 RATIO 08/05/2014 Unknow n LIPID GROUP 56256 NON-HDL CH 170 MG/DL 08/05/2014 Unknow n MYCOPLASMA ANTIBODY, IFA [id number] MYCO G IFA 1:256 03/24 Unknown MYCOPLASMA ANTIBODY, IFA [id number] MYCO M IFA <1:10 03/24 Unknown MYCOPLASMA ANTIBODY, IFA [id number] MYCO INTER SEE BELO 03/24 Unknown COMPLETE BLOOD COUNT [id number] WBC 8.3 10e9/L 04/09/20 13 Unknown COMPLETE BLOOD COUNT [id number] RBC 4.61 10e12/L 2012 Unknown COMPLETE BLOOD COUNT [id number] HGB 13.9 g/dL 3 Unknown COMPLETE BLOOD COUNT [id number] HCT DET 41.2 % 3 Unknown COMPLETE BLOOD COUNT 5013404 MCV 89.4 fL 3 Unknown COMPLETE BLOOD COUNT [id number] MCH 30.2 pg 3 Unknown COMPLETE BLOOD COUNT 9472104 MCHC 33.7 g/dL 3 Unknown COMPLETE BLOOD COUNT 1333670 PLT 249 10e9/L 04/09/20 13 Unknown COMPLETE BLOOD COUNT [id number] MPV 9.8 fL 3 Unknown COMPLETE BLOOD COUNT [id number] SUSIE % 65.9 % 3 Unknown COMPLETE BLOOD COUNT [id number] LY % 19.8 % 3 Unknown COMPLETE BLOOD COUNT [id number] MON % 10.8 % 3 Unknown COMPLETE BLOOD COUNT [id number] EOS % 3.0 % 3 Unknown COMPLETE BLOOD COUNT [id number] BASO % 0.5 % 3 Unknown COMPLETE BLOOD COUNT 3475741 RDW 14.0 % 3 Unknown COMPLETE BLOOD COUNT [id number] ABS SUSIE 5.47 10e9/L 013 Unknown COMPLETE BLOOD COUNT [id number] ABS LYMPH 1.64 10e9/L 013 Unknown COMPLETE BLOOD COUNT [id number] ABS MONO 0.90 10e9/L 013 Unknown COMPLETE BLOOD COUNT [id number] ABS EOS 0.25 10e9/L 013 Unknown COMPLETE BLOOD COUNT [id number] ABS BASO 0.04 10e9/L 013 Unknown COMPLETE BLOOD COUNT [id number] RDW-SD 45.0 fL 3 Unknown URIC ACID 43398 URIC ACID 5.3 MG/DL 02/12/2013 Unknown FREE T4 47935 FREE T4 1.09 NG/DL 02/11/2013 Unknown COMPLETE BLOOD COUNT [id number] WBC 6.3 10e9/L 02/12/20 13 Unknown COMPLETE BLOOD COUNT [id number] RBC 4.29 10e12/L 2012 Unknown COMPLETE BLOOD COUNT [id number] HGB 13.1 g/dL 3 Unknown COMPLETE BLOOD COUNT 6437908 HCT DET 39.7 % 3 Unknown COMPLETE BLOOD COUNT [id number] MCV 92.5 fL 3 Unknown COMPLETE BLOOD COUNT 1422627 MCH 30.5 pg 3 Unknown COMPLETE BLOOD COUNT 8466689 MCHC 33.0 g/dL 3 Unknown COMPLETE BLOOD COUNT [id number] PLT 247 10e9/L 02/12/20 13 Unknown COMPLETE BLOOD COUNT [id number] MPV 10.0 fL 3 Unknown COMPLETE BLOOD COUNT [id number] SUSIE % 73.4 % 3 Unknown COMPLETE BLOOD COUNT 2928711 LY % 13.5 % 3 Unknown COMPLETE BLOOD COUNT [id number] MON % 9.4 % 3 Unknown COMPLETE BLOOD COUNT [id number] EOS % 2.9 % 3 Unknown COMPLETE BLOOD COUNT [id number] BASO % 0.8 % 3 Unknown COMPLETE BLOOD COUNT [id number] RDW 13.8 % 3 Unknown COMPLETE BLOOD COUNT [id number] ABS SUSIE 4.62 10e9/L 013 Unknown COMPLETE BLOOD COUNT 3542014 ABS LYMPH 0.85 10e9/L 013 Unknown COMPLETE BLOOD COUNT [id number] ABS MONO 0.59 10e9/L 013 Unknown COMPLETE BLOOD COUNT [id number] ABS EOS 0.18 10e9/L 013 Unknown COMPLETE BLOOD COUNT [id number] ABS BASO 0.05 10e9/L 013 Unknown COMPLETE BLOOD COUNT [id number] RDW-SD 45.7 fL 3 Unknown HEMOGLOBIN A1C (GLYCOSYLATED) 2191655 A1C HPLC 17220-7 7.5 % 02/11/2013 Unknown THYROID STIMULATING HORMONE 28143 TSH 1.466 uIU/ML 02/11/2013 Unknown VITAMIN B 12 FOLIC ACID 91921|59455 VIT B 12 625 PG/ML 01/23 Unknown VITAMIN B 12 FOLIC ACID 26984|47797 FOLIC ACID 15.6 NG/ML Unknown COMPREHENSIVE METABOLIC 92222 AST 18 U/L 2012 Unknown COMPREHENSIVE METABOLIC 32842 ALT 21 IU/L 2012 Unknown COMPREHENSIVE METABOLIC 05550 BUN 25 MG/DL 2012 Unknown COMPREHENSIVE METABOLIC 56562 ALBUMIN 4.6 GM/DL 2012 Unknown COMPREHENSIVE METABOLIC 15055 CHLORIDE 103 MMOL/L 02/11 Unknown COMPREHENSIVE METABOLIC 96482 BILI TOT 0.3 MG/DL 2012 Unknown COMPREHENSIVE METABOLIC 39465 ALK PHOS 53 U/L 2012 Unknown COMPREHENSIVE METABOLIC 53836 SODIUM 136 MMOL/L 02/11 Unknown COMPREHENSIVE METABOLIC 53887 CREATININE 1.16 MG/DL 01/23 Unknown COMPREHENSIVE METABOLIC 89864 CALCIUM 10.0 MG/DL 02/11 Unknown COMPREHENSIVE METABOLIC 86238 POTASSIUM 4.9 MMOL/L 02/11 Unknown COMPREHENSIVE METABOLIC 86221 PROT TOT 7.0 GM/DL 2012 Unknown COMPREHENSIVE METABOLIC 06803 Glucose 192 MG/DL 2012 Unknown COMPREHENSIVE METABOLIC 23983 BICARB 26 MMOL/L 2012 Unknown COMPREHENSIVE METABOLIC 87506 ANION GAP 7 MEQ/L 2012 Unknown GFR CALC 0644451 GFR AA >60 ML/MIN 02/11/2013 Unknown GFR CALC 8632711 GFR NON-AA >60 ML/MIN 02/11/2013 Unknown C-REACTIVE PROTEIN (CRP) QUANT 95075 CRP 2.7 MG/DL 02/11/2013 Unknown GFR CALC 8924298 GFR AA >60 ML/MIN 09/19/2012 Unknown GFR CALC 4846542 GFR NON-AA >60 ML/MIN 09/19/2012 Unknown HEMOGLOBIN A1C (GLYCOSYLATED) 4537856 A1C HPLC 16987-4 7.2 % 09/19/2012 Unknown COMPREHENSIVE METABOLIC 58246 AST 13 U/L 2011 Unknown COMPREHENSIVE METABOLIC 38906 ALT 17 IU/L 2011 Unknown COMPREHENSIVE METABOLIC 69652 BUN 25 MG/DL 2011 Unknown COMPREHENSIVE METABOLIC 47525 ALBUMIN 4.5 GM/DL 2011 Unknown COMPREHENSIVE METABOLIC 85529 CHLORIDE 104 MMOL/L 09/19 Unknown COMPREHENSIVE METABOLIC 86678 BILI TOT 0.3 MG/DL 2011 Unknown COMPREHENSIVE METABOLIC 67365 ALK PHOS 43 U/L 2011 Unknown COMPREHENSIVE METABOLIC 37934 SODIUM 139 MMOL/L 09/19 Unknown COMPREHENSIVE METABOLIC 49386 CREATININE 1.10 MG/DL 08/25 Unknown COMPREHENSIVE METABOLIC 19291 CALCIUM 9.8 MG/DL 2011 Unknown COMPREHENSIVE METABOLIC 47433 POTASSIUM 4.8 MMOL/L 09/19 Unknown COMPREHENSIVE METABOLIC 66322 PROT TOT 6.5 GM/DL 2011 Unknown COMPREHENSIVE METABOLIC 33276 Glucose 148 MG/DL 2011 Unknown COMPREHENSIVE METABOLIC 60633 BICARB 25 MMOL/L 2011 Unknown COMPREHENSIVE METABOLIC 37653 ANION GAP 10 MEQ/L 2011 Unknown LIPID GROUP 12302 HDL TEST 44 MG/DL 09/19/2012 Unknown LIPID GROUP 86104 TRIG 318 MG/DL 09/19/2012 Unknown LIPID GROUP 99479 TEST LDL 100 MG/DL 09/19/2012 Unknown LIPID GROUP 40279 CHOL 208 MG/DL 09/19/2012 Unknown LIPID GROUP 55632 RCHOL/HDL 4.73 RATIO 09/19/2012 Unknow n FREE T4 18045 FREE T4 0.87 NG/DL 05/06/2012 Unknown GLYCOSYLATED HEMOGLOBIN TEST 17731 A1C [facility] 82014-0 6.4 % 0 05/06/2012 Unknown LIPID GROUP 50304 HDL TEST 44 MG/DL 05/06/2012 Unknown LIPID GROUP 63243 TRIG 177 MG/DL 05/06/2012 Unknown LIPID GROUP 67679 TEST LDL 113 MG/DL 05/06/2012 Unknown LIPID GROUP 20543 CHOL 192 MG/DL 05/06/2012 Unknown LIPID GROUP 74281 RCHOL/HDL 4.36 RATIO 05/06/2012 Unknow n THYROID STIMULATING HORMONE 90715 TSH 1.151 uIU/ML 05/06/2012 Unknown COMPLETE BLOOD COUNT 26287 WBC 7.8 10e9/L 05/06/20 12 Unknown COMPLETE BLOOD COUNT 70545 RBC 4.31 10e12/L 2011 Unknown COMPLETE BLOOD COUNT 44485 HGB 12.8 g/dL 2 Unknown COMPLETE BLOOD COUNT 75919 HCT DET 39.1 % 2 Unknown COMPLETE BLOOD COUNT 82267 MCV 90.7 fL 2 Unknown COMPLETE BLOOD COUNT 93054 MCH 29.7 pg 2 Unknown COMPLETE BLOOD COUNT 76104 MCHC 32.7 g/dL 2 Unknown COMPLETE BLOOD COUNT 66338 PLT 207 10e9/L 05/06/20 12 Unknown COMPLETE BLOOD COUNT 78030 MPV 10.2 fL 2 Unknown COMPLETE BLOOD COUNT 40620 SUSIE % 74.2 % 2 Unknown COMPLETE BLOOD COUNT 40395 LY % 12.8 % 2 Unknown COMPLETE BLOOD COUNT 83948 MON % 11.0 % 2 Unknown COMPLETE BLOOD COUNT 64564 EOS % 1.7 % 2 Unknown COMPLETE BLOOD COUNT 41899 BASO % 0.3 % 2 Unknown COMPLETE BLOOD COUNT 66778 RDW 13.7 % 2 Unknown COMPLETE BLOOD COUNT 08230 ABS SUSIE 5.79 10e9/L 012 Unknown COMPLETE BLOOD COUNT 36192 ABS LYMPH 1.00 10e9/L 012 Unknown COMPLETE BLOOD COUNT 11588 ABS MONO 0.86 10e9/L 012 Unknown COMPLETE BLOOD COUNT 58564 ABS EOS 0.13 10e9/L 012 Unknown COMPLETE BLOOD COUNT 12438 ABS BASO 0.02 10e9/L 012 Unknown COMPLETE BLOOD COUNT 92404 RDW-SD 44.4 fL 2 Unknown COMPREHENSIVE METABOLIC 38053 AST 13 U/L 2011 Unknown COMPREHENSIVE METABOLIC 20571 ALT 14 IU/L 2011 Unknown COMPREHENSIVE METABOLIC 72597 BUN 17 MG/DL 2011 Unknown COMPREHENSIVE METABOLIC 42782 ALBUMIN 4.5 GM/DL 2011 Unknown COMPREHENSIVE METABOLIC 22567 CHLORIDE 101 MMOL/L 05/06 Unknown COMPREHENSIVE METABOLIC 39690 BILI TOT 0.5 MG/DL 2011 Unknown COMPREHENSIVE METABOLIC 12580 ALK PHOS 42 U/L 2011 Unknown COMPREHENSIVE METABOLIC 88780 SODIUM 141 MMOL/L 05/06 Unknown COMPREHENSIVE METABOLIC 46313 CREATININE 1.02 MG/DL 04/24 Unknown COMPREHENSIVE METABOLIC 02742 CALCIUM 9.7 MG/DL 2011 Unknown COMPREHENSIVE METABOLIC 68907 POTASSIUM 4.6 MMOL/L 05/06 Unknown COMPREHENSIVE METABOLIC 22966 PROT TOT 6.5 GM/DL 2011 Unknown COMPREHENSIVE METABOLIC 59531 Glucose 139 MG/DL 2011 Unknown COMPREHENSIVE METABOLIC 58097 BICARB 29 MMOL/L 2011 Unknown COMPREHENSIVE METABOLIC 84296 ANION GAP 11 MEQ/L 2011 Unknown GFR CALC 9662166 GFR AA >60 ML/MIN 05/06/2012 Unknown GFR CALC 3499999 GFR NON-AA 54.0L ML/MIN 05/06/2012 Unkno wn GLYCOSYLATED HEMOGLOBIN TEST 25960 A1C HPLC 71611-4 6.6 % 1 09/30/2010 Unknown FREE T4 82894 FREE T4 1.00 NG/DL 07/26/2011 Unknown LIPID GROUP 64780 HDL TEST 40 MG/DL 07/26/2011 Unknown LIPID GROUP 98889 TRIG 136 MG/DL 07/26/2011 Unknown LIPID GROUP 47154 TEST LDL 126 MG/DL 07/26/2011 Unknown LIPID GROUP 88133 CHOL 193 MG/DL 07/26/2011 Unknown LIPID GROUP 27250 RCHOL/HDL 4.83 RATIO 07/26/2011 Unknow n COMPREHENSIVE METABOLIC 14604 AST 15 U/L 2010 Unknown COMPREHENSIVE METABOLIC 49092 ALT 13 IU/L 2010 Unknown COMPREHENSIVE METABOLIC 08395 BUN 17 MG/DL 2010 Unknown COMPREHENSIVE METABOLIC 07345 ALBUMIN 4.4 GM/DL 2010 Unknown COMPREHENSIVE METABOLIC 10807 CHLORIDE 102 MMOL/L 07/26 Unknown COMPREHENSIVE METABOLIC 90402 BILI TOT 0.5 MG/DL 2010 Unknown COMPREHENSIVE METABOLIC 17577 ALK PHOS 54 U/L 2010 Unknown COMPREHENSIVE METABOLIC 80571 SODIUM 138 MMOL/L 07/26 Unknown COMPREHENSIVE METABOLIC 19599 CREATININE 0.95 MG/DL 10/2010 Unknown COMPREHENSIVE METABOLIC 17637 CALCIUM 9.3 MG/DL 2010 Unknown COMPREHENSIVE METABOLIC 15400 POTASSIUM 4.3 MMOL/L 07/26 Unknown COMPREHENSIVE METABOLIC 25005 PROT TOT 6.7 GM/DL 2010 Unknown COMPREHENSIVE METABOLIC 18695 Glucose 116 MG/DL 2010 Unknown COMPREHENSIVE METABOLIC 23111 BICARB 28 MMOL/L 2010 Unknown COMPREHENSIVE METABOLIC 98703 ANION GAP 8 MEQ/L 2010 Unknown PSA EQUIMOLAR JONATAN 96314 PSA EQ 1.01 NG/ML 1 Unknown COMPLETE BLOOD COUNT 31809 WBC 6.4 10e9/L 07/26/20 11 Unknown COMPLETE BLOOD COUNT 30523 RBC 4.43 10e12/L 2010 Unknown COMPLETE BLOOD COUNT 09022 HGB 13.2 g/dL 1 Unknown COMPLETE BLOOD COUNT 00508 HCT DET 39.3 % 1 Unknown COMPLETE BLOOD COUNT 32409 MCV 88.7 fL 1 Unknown COMPLETE BLOOD COUNT 87725 MCH 29.8 pg 1 Unknown COMPLETE BLOOD COUNT 82289 MCHC 33.6 g/dL 1 Unknown COMPLETE BLOOD COUNT 32323 PLT 226 10e9/L 07/26/20 11 Unknown COMPLETE BLOOD COUNT 82981 MPV 9.9 fL 1 Unknown COMPLETE BLOOD COUNT 77194 SUSIE % 65.4 % 1 Unknown COMPLETE BLOOD COUNT 87394 LY % 19.7 % 1 Unknown COMPLETE BLOOD COUNT 81994 MON % 10.8 % 1 Unknown COMPLETE BLOOD COUNT 95425 EOS % 3.6 % 1 Unknown COMPLETE BLOOD COUNT 46854 BASO % 0.5 % 1 Unknown COMPLETE BLOOD COUNT 71748 RDW 13.2 % 1 Unknown COMPLETE BLOOD COUNT 28418 ABS SUSIE 4.19 10e9/L 011 Unknown COMPLETE BLOOD COUNT 03524 ABS LYMPH 1.26 10e9/L 011 Unknown COMPLETE BLOOD COUNT 72704 ABS MONO 0.69 10e9/L 011 Unknown COMPLETE BLOOD COUNT 29415 ABS EOS 0.23 10e9/L 011 Unknown COMPLETE BLOOD COUNT 16353 ABS BASO 0.03 10e9/L 011 Unknown COMPLETE BLOOD COUNT 74952 RDW-SD 41.7 fL 1 Unknown THYROID STIMULATING HORMONE 07107 TSH 1.345 uIU/ML 07/26/2011 Unknown GFR CALC 4185623 GFR AA >60 ML/MIN 07/26/2011 Unknown GFR CALC 5631204 GFR NON-AA >60 ML/MIN 07/26/2011 Unknown BRAIN NATRIURETIC PEPTIDE(BNP) 49223 BRAIN PEP 23 pg/mL 01/19/2011 Unknown CANCEL 2145202 CANCEL FOOTNOTE 01/18/2011 Unknown TESTOSTERONE TOTAL 33249 TESTOS TO 138 NG/DL 12/19/2010 Unknown COMPLETE BLOOD COUNT 56214 WBC 8.4 10e9/L 12/08/19 11 Unknown COMPLETE BLOOD COUNT 29700 RBC 4.40 10e12/L 2010 Unknown COMPLETE BLOOD COUNT 96066 HGB 13.3 g/dL 1 Unknown COMPLETE BLOOD COUNT 37018 HCT DET 39.8 % 1 Unknown COMPLETE BLOOD COUNT 24361 MCV 90.5 fL 1 Unknown COMPLETE BLOOD COUNT 85855 MCH 30.2 pg 1 Unknown COMPLETE BLOOD COUNT 53946 MCHC 33.4 g/dL 1 Unknown COMPLETE BLOOD COUNT 34089 PLT 201 10e9/L 12/08/19 11 Unknown COMPLETE BLOOD COUNT 99380 MPV 10.6 fL 1 Unknown COMPLETE BLOOD COUNT 58486 SUSIE % 72.5 % 1 Unknown COMPLETE BLOOD COUNT 27820 LY % 14.8 % 1 Unknown COMPLETE BLOOD COUNT 63815 MON % 10.6 % 1 Unknown COMPLETE BLOOD COUNT 70393 EOS % 1.7 % 1 Unknown COMPLETE BLOOD COUNT 77151 BASO % 0.4 % 1 Unknown COMPLETE BLOOD COUNT 75365 RDW 13.7 % 1 Unknown COMPLETE BLOOD COUNT 11158 ABS SUSIE 6.09 10e9/L 011 Unknown COMPLETE BLOOD COUNT 28193 ABS LYMPH 1.24 10e9/L 011 Unknown COMPLETE BLOOD COUNT 70980 ABS MONO 0.89 10e9/L 011 Unknown COMPLETE BLOOD COUNT 32553 ABS EOS 0.14 10e9/L 011 Unknown COMPLETE BLOOD COUNT 87813 ABS BASO 0.03 10e9/L 011 Unknown COMPLETE BLOOD COUNT 04743 RDW-SD 44.0 fL 1 Unknown LIPID GROUP 16744 HDL TEST 40 MG/DL 12/07/2010 Unknown LIPID GROUP 07923 TRIG 383 MG/DL 12/07/2010 Unknown LIPID GROUP 21413 TEST LDL 82 MG/DL 12/07/2010 Unknown LIPID GROUP 13770 CHOL 199 MG/DL 12/07/2010 Unknown LIPID GROUP 41409 RCHOL/HDL 4.98 RATIO 12/07/2010 Unknow n GFR CALC 0143538 GFR AA >60 ML/MIN 12/07/2010 Unknown GFR CALC 1207650 GFR NON-AA >60 ML/MIN 12/07/2010 Unknown COMPREHENSIVE METABOLIC 12809 AST 29 U/L 2010 Unknown COMPREHENSIVE METABOLIC 93995 ALT 39 IU/L 2010 Unknown COMPREHENSIVE METABOLIC 27305 BUN 17 MG/DL 2010 Unknown COMPREHENSIVE METABOLIC 46538 ALBUMIN 4.9 GM/DL 2010 Unknown COMPREHENSIVE METABOLIC 00386 CHLORIDE 100 MMOL/L 12/07 Unknown COMPREHENSIVE METABOLIC 28558 BILI TOT 0.3 MG/DL 2010 Unknown COMPREHENSIVE METABOLIC 63505 ALK PHOS 53 U/L 2010 Unknown COMPREHENSIVE METABOLIC 45658 SODIUM 137 MMOL/L 12/07 Unknown COMPREHENSIVE METABOLIC 69407 CREATININE 0.98 MG/DL 11/22 Unknown COMPREHENSIVE METABOLIC 61807 CALCIUM 9.5 MG/DL 2010 Unknown COMPREHENSIVE METABOLIC 98848 POTASSIUM 4.3 MMOL/L 12/07 Unknown COMPREHENSIVE METABOLIC 53785 PROT TOT 6.6 GM/DL 2010 Unknown COMPREHENSIVE METABOLIC 61128 Glucose 176 MG/DL 2010 Unknown COMPREHENSIVE METABOLIC 64048 BICARB 28 MMOL/L 2010 Unknown COMPREHENSIVE METABOLIC 93897 ANION GAP 9 MEQ/L 2010 Unknown PSA EQUIMOLAR JONATAN 85715 PSA EQ 0.65 NG/ML 1 Unknown HEMOGLOBIN A1C (GLYCOSYLATED) 55373 A1C HPLC 54571-5 6.9 % 12/07/2010 Unknown Procedures Procedure Codes Date THER/PROPH/DIAG INJ SC/IM CPT-4: 31557 12/25/2019 METHYLPREDNISOLONE INJECTION CPT-4: J2930 12/25/2019 FLU VACC PRSV FREE INC ANTIG 65 AND OLDER CPT-4: 64219 08/07/2019 FLU VACC PRSV FREE INC ANTIG 65 AND OLDER CPT-4: 55284 08/07/2019 ADMIN INFLUENZA VIRUS VAC CPT-4: G0008 08/07/2019 THER/PROPH/DIAG INJ SC/IM CPT-4: 37636 07/14/2019 METHYLPREDNISOLONE INJECTION CPT-4: J2930 07/14/2019 ROUTINE VENIPUNCTURE CPT-4: 24358 06/17/2019 ASSAY THYROID STIM HORMONE CPT-4: 16078 06/17/2019 COMPREHEN METABOLIC PANEL CPT-4: 56312 06/17/2019 COMPLETE CBC W/AUTO DIFF WBC CPT-4: 91503 06/17/2019 ASSAY OF IRON CPT-4: 38885 06/17/2019 VITAMIN B-12 CPT-4: 23639 06/17/2019 RBC SED RATE AUTOMATED CPT-4: 27056 06/17/2019 THER/PROPH/DIAG INJ SC/IM CPT-4: 08151 06/10/2019 THER/PROPH/DIAG INJ SC/IM CPT-4: 43890 06/02/2019 THER/PROPH/DIAG INJ SC/IM CPT-4: 80136 05/27/2019 THER/PROPH/DIAG INJ SC/IM CPT-4: 65676 05/12/2019 ROUTINE VENIPUNCTURE CPT-4: 28514 05/08/2019 COMPREHEN METABOLIC PANEL CPT-4: 14146 05/08/2019 COMPLETE CBC W/AUTO DIFF WBC CPT-4: 19081 05/08/2019 A1C HPLC CPT-4: 04792 05/08/2019 VITAMIN D TOTAL (25 HYDROXY) CPT-4: 74367 05/08/2019 ASSAY OF IRON CPT-4: 67233 05/08/2019 ASSAY OF FERRITIN CPT-4: 40464 05/08/2019 VITAMIN B-12 CPT-4: 55364 05/08/2019 THER/PROPH/DIAG INJ SC/IM CPT-4: 29341 03/21/2019 METHYLPREDNISOLONE INJECTION CPT-4: J2930 03/21/2019 THER/PROPH/DIAG INJ SC/IM CPT-4: 11309 03/13/2019 METHYLPREDNISOLONE INJECTION CPT-4: J2930 03/13/2019 THER/PROPH/DIAG INJ SC/IM CPT-4: 94315 12/25/2018 METHYLPREDNISOLONE INJECTION CPT-4: J2930 12/25/2018 ROUTINE VENIPUNCTURE CPT-4: 91981 12/09/2018 ASSAY OF FREE THYROXINE CPT-4: 39590 12/09/2018 ASSAY THYROID STIM HORMONE CPT-4: 74513 12/09/2018 COMPREHEN METABOLIC PANEL CPT-4: 27901 12/09/2018 COMPLETE CBC W/AUTO DIFF WBC CPT-4: 27923 12/09/2018 LIPID PANEL CPT-4: 94927 12/09/2018 A1C HPLC CPT-4: 47179 12/09/2018 PRESCRIP TRANSMIT VIA ERX SY CPT-4: G8553 08/21/2018 PRESCRIP TRANSMIT VIA ERX SY CPT-4: G8553 08/07/2018 THER/PROPH/DIAG INJ SC/IM CPT-4: 11640 05/23/2018 METHYLPREDNISOLONE INJECTION CPT-4: J2930 05/23/2018 PRESCRIP TRANSMIT VIA ERX SY CPT-4: G8553 05/02/2018 THER/PROPH/DIAG INJ SC/IM CPT-4: 31881 04/29/2018 METHYLPREDNISOLONE INJECTION CPT-4: J2930 04/29/2018 DEXAMETHASONE SODIUM PHOS CPT-4: J1100 04/22/2018 THER/PROPH/DIAG INJ SC/IM CPT-4: 64497 04/22/2018 TRIAMCINOLONE ACET INJ NOS CPT-4: J3301 04/22/2018 PRESCRIP TRANSMIT VIA ERX SY CPT-4: G8553 04/22/2018 PRESCRIP TRANSMIT VIA ERX SY CPT-4: G8553 01/23/2018 URINALYSIS NONAUTO W/O SCOPE CPT-4: 83600 01/02/2018 URINE CULTURE/ COLONY COUNT CPT-4: 85802 01/02/2018 PRESCRIP TRANSMIT VIA ERX SY CPT-4: G8553 01/02/2018 PRESCRIP TRANSMIT VIA ERX SY CPT-4: G8553 12/28/2017 PRESCRIP TRANSMIT VIA ERX SY CPT-4: G8553 12/21/2017 CEFTRIAXONE SODIUM INJECTION CPT-4: J0696 12/17/2017 THER/PROPH/DIAG INJ SC/IM CPT-4: 86418 12/17/2017 THER/PROPH/DIAG INJ SC/IM CPT-4: 82282 12/17/2017 TRIAMCINOLONE ACET INJ NOS CPT-4: J3301 12/17/2017 PRESCRIP TRANSMIT VIA ERX SY CPT-4: G8553 12/17/2017 DRAIN/INJECT JOINT/BURSA CPT-4: 72915 12/11/2017 TRIAMCINOLONE ACET INJ NOS CPT-4: J3301 12/11/2017 DEXAMETHASONE SODIUM PHOS CPT-4: J1100 12/11/2017 DESTRUCT PREMALG LESION (Cryosurgery) CPT-4: 13680 PRESCRIP TRANSMIT VIA ERX SY CPT-4: G8553 10/17/2017 DEXAMETHASONE SODIUM PHOS CPT-4: J1100 08/02/2017 THER/PROPH/DIAG INJ SC/IM CPT-4: 84490 08/02/2017 TRIAMCINOLONE ACET INJ NOS CPT-4: J3301 08/02/2017 PRESCRIP TRANSMIT VIA ERX SY CPT-4: G8553 08/02/2017 PNEUMOCOCCAL VACC 23 OLIVIA IM CPT-4: 89626 07/24/2017 ADMIN PNEUMOCOCCAL VACCINE CPT-4: G0009 07/24/2017 ALBUTEROL NON-COMP UNIT CPT-4: J7613 07/02/2017 AIRWAY INHALATION TREATMENT CPT-4: 87887 07/02/2017 THER/PROPH/DIAG INJ SC/IM CPT-4: 82739 07/02/2017 METHYLPREDNISOLONE INJECTION CPT-4: J2930 07/02/2017 PRESCRIP TRANSMIT VIA ERX SY CPT-4: G8553 05/29/2017 ROUTINE VENIPUNCTURE CPT-4: 48218 04/17/2017 ASSAY OF IRON CPT-4: 59495 04/17/2017 VITAMIN B-12 CPT-4: 90295 04/17/2017 COMPREHEN METABOLIC PANEL CPT-4: 56195 04/17/2017 COMPLETE CBC W/AUTO DIFF WBC CPT-4: 52546 04/17/2017 ASSAY OF FERRITIN CPT-4: 75866 04/17/2017 ASSAY THYROID STIM HORMONE CPT-4: 45318 04/17/2017 A1C HPLC CPT-4: 89809 04/17/2017 DRAIN/INJECT JOINT/BURSA CPT-4: 84614 02/01/2017 TRIAMCINOLONE ACET INJ NOS CPT-4: J3301 02/01/2017 DEXAMETHASONE SODIUM PHOS CPT-4: J1100 02/01/2017 ROUTINE VENIPUNCTURE CPT-4: 91323 12/27/2016 COMPLETE CBC W/AUTO DIFF WBC CPT-4: 62585 12/27/2016 ROUTINE VENIPUNCTURE CPT-4: 31147 12/21/2016 COMPLETE CBC W/AUTO DIFF WBC CPT-4: 77251 12/21/2016 ROUTINE VENIPUNCTURE CPT-4: 21719 12/12/2016 COMPLETE CBC W/AUTO DIFF WBC CPT-4: 57783 12/12/2016 PRESCRIP TRANSMIT VIA ERX SY CPT-4: G8553 10/31/2016 PRESCRIP TRANSMIT VIA ERX SY CPT-4: G8553 10/03/2016 PRESCRIP TRANSMIT VIA ERX SY CPT-4: G8553 09/04/2016 DESTRUCT PREMALG LESION (Cryosurgery) CPT-4: 96034 DESTRUCT PREMALG LES 2-14 CPT-4: 27288 08/22/2016 PRESCRIP TRANSMIT VIA ERX SY CPT-4: G8553 08/10/2016 PRESCRIP TRANSMIT VIA ERX SY CPT-4: G8553 07/06/2016 FLU VACC PRSV FREE INC ANTIG 65 AND OLDER CPT-4: 78231 06/13/2016 PNEUMOCOCCAL VACC 13 OLIVIA IM CPT-4: 40663 06/13/2016 ADMIN INFLUENZA VIRUS VAC CPT-4: G0008 06/13/2016 ADMIN PNEUMOCOCCAL VACCINE CPT-4: G0009 06/13/2016 CERUM REMOVAL CPT-4: 06972 04/05/2016 PRESCRIP TRANSMIT VIA ERX SY CPT-4: G8553 04/03/2016 ROUTINE VENIPUNCTURE CPT-4: 80663 03/06/2016 ASSAY OF FREE THYROXINE CPT-4: 02365 03/06/2016 ASSAY THYROID STIM HORMONE CPT-4: 03822 03/06/2016 COMPREHEN METABOLIC PANEL CPT-4: 19627 03/06/2016 COMPLETE CBC W/AUTO DIFF WBC CPT-4: 53784 03/06/2016 LIPID PANEL CPT-4: 16700 03/06/2016 ASSAY OF PSA TOTAL CPT-4: 14370 03/06/2016 TESTOSTERONE TOTAL - MALE CPT-4: 74413 03/06/2016 A1C HPLC CPT-4: 12961 03/06/2016 ASSAY OF IRON CPT-4: 13623 03/06/2016 VITAMIN B-12 CPT-4: 63586 03/06/2016 INJ TENDON SHEATH/LIGAMENT CPT-4: 94527 02/17/2016 TRIAMCINOLONE ACET INJ NOS CPT-4: J3301 02/17/2016 DEXAMETHASONE SODIUM PHOS CPT-4: J1100 02/17/2016 PRESCRIP TRANSMIT VIA ERX SY CPT-4: G8553 01/31/2016 PRESCRIP TRANSMIT VIA ERX SY CPT-4: G8553 12/30/2015 PRESCRIP TRANSMIT VIA ERX SY CPT-4: G8553 12/06/2015 PRESCRIP TRANSMIT VIA ERX SY CPT-4: G8553 11/15/2015 PPPS, subseq visit CPT-4: G0439 10/05/2015 MICROALBUMIN QUANTITATIVE CPT-4: 97560 10/05/2015 PROTEIN/CREAT URINE WITH RATIO CPT-4: 08815|22480 6 ROUTINE VENIPUNCTURE CPT-4: 65217 07/01/2015 ASSAY OF FREE THYROXINE CPT-4: 88854 07/01/2015 ASSAY THYROID STIM HORMONE CPT-4: 04187 07/01/2015 COMPLETE CBC W/AUTO DIFF WBC CPT-4: 07896 07/01/2015 LIPID PANEL CPT-4: 19951 07/01/2015 ASSAY OF PSA TOTAL CPT-4: 16132 07/01/2015 AEROBIC WOUND CULTURE & STN CPT-4: 16243 06/28/2015 PRESCRIP TRANSMIT VIA ERX SY CPT-4: G8553 06/28/2015 AEROBIC WOUND CULTURE & STN CPT-4: 47806 06/03/2015 PRESCRIP TRANSMIT VIA ERX SY CPT-4: G8553 06/03/2015 ROUTINE VENIPUNCTURE CPT-4: 18407 06/01/2015 COMPREHEN METABOLIC PANEL CPT-4: 01004 06/01/2015 A1C HPLC CPT-4: 52167 06/01/2015 COMPREHEN METABOLIC PANEL CPT-4: 56042 02/25/2015 A1C HPLC CPT-4: 27168 02/25/2015 DESTRUCT PREMALG LESION (Cryosurgery) CPT-4: 95493 PROTEIN/CREAT URINE WITH RATIO CPT-4: 26707|11372 5 MICROALBUMIN QUANTITATIVE CPT-4: 27259 10/27/2014 INFLUENZA ASSAY W/OPTIC CPT-4: 44575 10/21/2014 PRESCRIP TRANSMIT VIA ERX SY CPT-4: G8553 10/06/2014 PRESCRIP TRANSMIT VIA ERX SY CPT-4: G8553 09/21/2014 PRESCRIP TRANSMIT VIA ERX SY CPT-4: G8553 09/02/2014 MICROALBUMIN QUANTITATIVE CPT-4: 82386 08/27/2014 PROTEIN/CREAT URINE WITH RATIO CPT-4: 46379|47183 4 PPPS, subseq visit CPT-4: G0439 08/10/2014 ROUTINE VENIPUNCTURE CPT-4: 57145 08/05/2014 ASSAY OF FREE THYROXINE CPT-4: 18823 08/05/2014 ASSAY THYROID STIM HORMONE CPT-4: 34140 08/05/2014 COMPREHEN METABOLIC PANEL CPT-4: 18154 08/05/2014 COMPLETE CBC W/AUTO DIFF WBC CPT-4: 80660 08/05/2014 LIPID PANEL CPT-4: 65647 08/05/2014 A1C HPLC CPT-4: 79916 08/05/2014 FLUZONE, 5ML (Medicare) CPT-4: Q2038 08/05/2014 ADMIN INFLUENZA VIRUS VAC CPT-4: G0008 08/05/2014 METHYLPREDNISOLONE 40 MG INJ CPT-4: J1030 12/16/2013 TRIAMCINOLONE ACET INJ NOS CPT-4: J3301 12/16/2013 DRAIN/INJECT JOINT/BURSA CPT-4: 17392 12/16/2013 PRESCRIP TRANSMIT VIA ERX SY CPT-4: G8553 10/09/2013 THER/PROPH/DIAG INJ SC/IM CPT-4: 16603 09/18/2013 METHYLPREDNISOLONE 40 MG INJ CPT-4: J1030 09/18/2013 TRIAMCINOLONE ACET INJ NOS CPT-4: J3301 09/18/2013 PRESCRIP TRANSMIT VIA ERX SY CPT-4: G8553 09/18/2013 PRESCRIP TRANSMIT VIA ERX SY CPT-4: G8553 08/13/2013 ROUTINE VENIPUNCTURE CPT-4: 04243 06/25/2013 ASSAY OF FREE THYROXINE CPT-4: 08205 06/25/2013 ASSAY THYROID STIM HORMONE CPT-4: 97891 06/25/2013 COMPREHEN METABOLIC PANEL CPT-4: 28165 06/25/2013 COMPLETE CBC W/AUTO DIFF WBC CPT-4: 56205 06/25/2013 LIPID PANEL CPT-4: 36737 06/25/2013 A1C GLYCOSYLATED HEMOGLOBIN TEST CPT-4: 24561 013 ROUTINE VENIPUNCTURE CPT-4: 08252 04/09/2013 COMPLETE CBC W/AUTO DIFF WBC CPT-4: 86828 04/09/2013 MYCOPLASMA ANTIBODY, IFA CPT-4: 32370R4 04/09/2013 ROUTINE VENIPUNCTURE CPT-4: 91687 02/11/2013 ASSAY OF FREE THYROXINE CPT-4: 22883 02/11/2013 ASSAY THYROID STIM HORMONE CPT-4: 44106 02/11/2013 COMPREHEN METABOLIC PANEL CPT-4: 77184 02/11/2013 COMPLETE CBC W/AUTO DIFF WBC CPT-4: 73822 02/11/2013 VITAMIN B 12 FOLIC ACID CPT-4: 52104|06732 02/11/2013 C-REACTIVE PROTEIN CPT-4: 65181 02/11/2013 A1C GLYCOSYLATED HEMOGLOBIN TEST CPT-4: 04434 013 ASSAY OF BLOOD/URIC ACID CPT-4: 27068 02/11/2013 CEFTRIAXONE SODIUM INJECTION CPT-4: J0696 01/31/2013 THER/PROPH/DIAG INJ SC/IM CPT-4: 99126 01/31/2013 THER/PROPH/DIAG INJ SC/IM CPT-4: 02072 01/31/2013 METHYLPREDNISOLONE 40 MG INJ CPT-4: J1030 01/31/2013 TRIAMCINOLONE ACET INJ NOS CPT-4: J3301 01/31/2013 ROUTINE VENIPUNCTURE CPT-4: 36647 09/19/2012 COMPREHEN METABOLIC PANEL CPT-4: 10057 09/19/2012 LIPID PANEL CPT-4: 30179 09/19/2012 A1C GLYCOSYLATED HEMOGLOBIN TEST CPT-4: 85529 012 PNEUMOCOCCAL VACC 23 OLIVIA IM CPT-4: 28213 07/10/2012 FLUZONE, 5ML (Medicare) CPT-4: Q2038 07/10/2012 ADMIN INFLUENZA VIRUS VAC CPT-4: G0008 07/10/2012 ADMIN PNEUMOCOCCAL VACCINE CPT-4: G0009 07/10/2012 ROUTINE VENIPUNCTURE CPT-4: 26495 05/06/2012 ASSAY OF FREE THYROXINE CPT-4: 09759 05/06/2012 ASSAY THYROID STIM HORMONE CPT-4: 58369 05/06/2012 COMPREHEN METABOLIC PANEL CPT-4: 09121 05/06/2012 COMPLETE CBC W/AUTO DIFF WBC CPT-4: 98010 05/06/2012 LIPID PANEL CPT-4: 77693 05/06/2012 A1C GLYCOSYLATED HEMOGLOBIN TEST CPT-4: 97801 012 IMMUNIZATION ADMIN CPT-4: 95334 02/05/2012 FLUZONE, 5ML (Medicare) CPT-4: Q2038 08/10/2011 ADMIN INFLUENZA VIRUS VAC CPT-4: G0008 08/10/2011 ROUTINE VENIPUNCTURE CPT-4: 12385 07/26/2011 ASSAY OF FREE THYROXINE CPT-4: 82892 07/26/2011 ASSAY THYROID STIM HORMONE CPT-4: 60642 07/26/2011 COMPREHEN METABOLIC PANEL CPT-4: 60633 07/26/2011 COMPLETE CBC W/AUTO DIFF WBC CPT-4: 78388 07/26/2011 LIPID PANEL CPT-4: 94192 07/26/2011 A1C GLYCOSYLATED HEMOGLOBIN TEST CPT-4: 11075 011 ASSAY OF PSA TOTAL CPT-4: 41801 07/26/2011 ROUTINE VENIPUNCTURE CPT-4: 22145 01/19/2011 ASSAY OF NATRIURETIC PEPTIDE CPT-4: 38249 01/19/2011 THER/PROPH/DIAG INJ SC/IM CPT-4: 81384 01/19/2011 CEFTRIAXONE SODIUM INJECTION CPT-4: J0696 01/19/2011 METHYLPREDNISOLONE INJECTION CPT-4: J2930 01/19/2011 THER/PROPH/DIAG INJ SC/IM CPT-4: 12885 01/19/2011 THER/PROPH/DIAG INJ SC/IM CPT-4: 21553 01/18/2011 CEFTRIAXONE SODIUM INJECTION CPT-4: J0696 01/18/2011 METHYLPREDNISOLONE INJECTION CPT-4: J2930 01/18/2011 THER/PROPH/DIAG INJ SC/IM CPT-4: 02256 01/18/2011 THER/PROPH/DIAG INJ SC/IM CPT-4: 60830 12/21/2010 TESTOSTERONE CYPIONAT 100 MG CPT-4: J1070 12/21/2010 ROUTINE VENIPUNCTURE CPT-4: 89234 12/19/2010 TESTOSTERONE TOTAL - MALE CPT-4: 77920 12/19/2010 ROUTINE VENIPUNCTURE CPT-4: 71643 12/07/2010 COMPLETE CBC W/AUTO DIFF WBC CPT-4: 99176 12/07/2010 COMPREHEN METABOLIC PANEL CPT-4: 92883 12/07/2010 LIPID PANEL CPT-4: 38637 12/07/2010 A1C GLYCOSYLATED HEMOGLOBIN TEST CPT-4: 07990 011 ASSAY OF PSA TOTAL CPT-4: 57742 12/07/2010 ROUTINE VENIPUNCTURE CPT-4: 67120 04/05/2010 PRESCRIP TRANSMIT VIA ERX SY CPT-4: G8553 04/05/2010 ROUTINE VENIPUNCTURE CPT-4: 02665 01/13/2010 METHYLPREDNISOLONE INJECTION CPT-4: J2930 12/22/2009 THER/PROPH/DIAG INJ SC/IM CPT-4: 80497 12/22/2009 THER/PROPH/DIAG INJ SC/IM CPT-4: 07779 12/22/2009 CEFTRIAXONE SODIUM INJECTION CPT-4: J0696 12/22/2009 ROUTINE VENIPUNCTURE CPT-4: 31375 12/22/2009 COMPLETE CBC W/AUTO DIFF WBC CPT-4: 29518 12/22/2009 RBC SED RATE, AUTOMATED CPT-4: 70830 12/22/2009 RPR FE/E/EN/L/M 20.1-30.0 CM CPT-4: 05651 12/22/2009 EKG FOR INITIAL PREVENT EXAM CPT-4: G0403 12/22/2009 THER/PROPH/DIAG INJ SC/IM CPT-4: 34726 12/16/2009 KETOROLAC TROMETHAMINE INJ CPT-4: J1885 12/16/2009 [...] 1: 126/68 Code: 8480-6 BMI: 30.2 Code: 62595-2 Heart Rate 1: 92 bpm Height: 6' Respiratory Rate: 22 bpm SpO2: 94% Tempera ture: 36.9 (C) / 98.5 (F) Weight: 223 lbs 08/21/2018 Blood Pressure 1: 160/70 Code: 8480-6 Heart Rate 1: 79 bpm Respiratory Rate: 20 bpm SpO2: 94% Temperature: 36.7 (C) / 98.0 (F) We ight: 226 lbs 8 oz 08/07/2018 Blood Pressure 1: 138/70 Code: 8480-6 BMI: 30.1 Code: 51217-3 Heart Rate 1: 80 bpm Height: 6' Respiratory Rate: 20 bpm SpO2: 94% Tempera ture: 36.9 (C) / 98.5 (F) Weight: 222 lbs 05/23/2018 Blood Pressure 1: 148/66 Code: 8480-6 BMI: 30.0 Code: 50776-4 Heart Rate 1: 96 bpm Height: 6' Respiratory Rate: 22 bpm SpO2: 94% Tempera ture: 37.3 (C) / 99.1 (F) Weight: 221 lbs 05/02/2018 Blood Pressure 1: 146/78 Code: 8480-6 BMI: 29.6 Code: 92139-8 Heart Rate 1: 78 bpm Height: 6' Respiratory Rate: 26 bpm SpO2: 94% Tempera ture: 35.7 (C) / 96.2 (F) Weight: 218 lbs 04/29/2018 Blood Pressure 1: 142/62 Code: 8480-6 BMI: 28.6 Code: 65175-5 Heart Rate 1: 82 bpm Height: 6' Respiratory Rate: 22 bpm SpO2: 98% Tempera ture: 36.4 (C) / 97.6 (F) Weight: 211 lbs 04/22/2018 Blood Pressure 1: 126/64 Code: 8480-6 BMI: 30.0 Code: 03761-4 Heart Rate 1: 96 bpm Height: 6' [...] 1: 144/78 Code: 8480-6 BMI: 30.7 Code: 97950-0 Heart Rate 1: 92 bpm Height: 6' Respiratory Rate: 28 bpm SpO2: 94% Tempera ture: 36.9 (C) / 98.4 (F) Weight: 226 lbs 12/28/2017 Blood Pressure 1: 136/80 Code: 8480-6 Heart Rate 1: 92 bpm Respiratory Rate: 28 bpm SpO2: 94% Temperature: 36.7 (C) / 98.1 (F) 12/21/2017 Blood Pressure 1: 146/84 Code: 8480-6 BMI: 31.1 Code: 29069-2 Heart Rate 1: 84 bpm Height: 6' [...] 1: 142/64 Code: 8480-6 BMI: 31.3 Code: 74721-2 Heart Rate 1: 98 bpm Height: 6' Respiratory Rate: 24 bpm SpO2: 94% Tempera ture: 36.4 (C) / 97.6 (F) Weight: 231 lbs 10/17/2017 Blood Pressure 1: 140/68 Code: 8480-6 BMI: 31.7 Code: 28852-0 Heart Rate 1: 88 bpm Height: 6' Respiratory Rate: 20 bpm SpO2: 94% Tempera ture: 36.8 (C) / 98.3 (F) Weight: 234 lbs 08/02/2017 Blood Pressure 1: 142/80 Code: 8480-6 BMI: 31.1 Code: 22868-5 Heart Rate 1: 86 bpm Height: 6' Respiratory Rate: 20 bpm SpO2: 90% Tempera ture: 35.9 (C) / 96.7 (F) Weight: 229 lbs 07/02/2017 Blood Pressure 1: 146/64 Code: 8480-6 BMI: 29.6 Code: 89515-3 Heart Rate 1: 96 bpm Height: 6' Respiratory Rate: 20 bpm Temperature: 36 .4 (C) / 97.6 (F) Weight: 218 lbs 05/29/2017 Blood Pressure 1: 152/68 Code: 8480-6 BMI: 31.5 Code: 72283-8 Heart Rate 1: 100 bpm Height: 6' Respiratory Rate: 20 bpm SpO2: 92% Tempera ture: 36.9 (C) / 98.4 (F) Weight: 232 lbs 02/01/2017 Blood Pressure 1: 146/64 Code: 8480-6 BMI: 30.7 Code: 84689-8 Heart Rate 1: 76 bpm Height: 6' Respiratory Rate: 20 bpm SpO2: 95% Tempera ture: 36.8 (C) / 98.2 (F) Weight: 226 lbs 01/29/2017 Blood Pressure 1: 146/78 Code: 8480-6 Heart Rate 1: 84 bpm Respiratory Rate: 20 bpm SpO2: 96% Temperature: 36.1 (C) / 97.0 (F) We ight: 226 lbs 12/21/2016 Blood Pressure 1: 126/60 Code: 8480-6 BMI: 30.8 Code: 43595-1 Heart Rate 1: 88 bpm Height: 6' Respiratory Rate: 22 bpm SpO2: 94% Tempera ture: 36.7 (C) / 98.0 (F) Weight: 227 lbs 12/14/2016 Blood Pressure 1: 126/70 Code: 8480-6 BMI: 29.8 Code: 72830-0 Heart Rate 1: 92 bpm Height: 6' Respiratory Rate: 22 bpm SpO2: 93% Tempera ture: 36.8 (C) / 98.2 (F) Weight: 220 lbs 11/14/2016 Blood Pressure 1: 128/62 Code: 8480-6 Heart Rate 1: 100 bpm Respiratory Rate: 20 bpm SpO2: 96% Temperature: 36.6 (C) / 97.8 (F) We ight: 220 lbs 10/31/2016 Blood Pressure 1: 142/60 Code: 8480-6 BMI: 30.1 Code: 46952-1 Heart Rate 1: 112 bpm Height: 6' Respiratory Rate: 24 bpm SpO2: 93% Tempera ture: 37.1 (C) / 98.7 (F) Weight: 222 lbs 10/03/2016 Blood Pressure 1: 136/78 Code: 8480-6 Heart Rate 1: 106 bpm Respiratory Rate: 24 bpm SpO2: 93% Temperature: 36.6 (C) / 97.8 (F) We ight: 221 lbs 09/04/2016 Blood Pressure 1: 112/44 Code: 8480-6 BMI: 30.1 Code: 44768-3 Heart Rate 1: 90 bpm Height: 6' Respiratory Rate: 20 bpm SpO2: 93% Tempera ture: 36.6 (C) / 97.9 (F) Weight: 222 lbs 08/22/2016 Blood Pressure 1: 142/68 Code: 8480-6 BMI: 30.4 Code: 03396-7 Heart Rate 1: 100 bpm Height: 6' Respiratory Rate: 24 bpm SpO2: 93% Tempera ture: 36.7 (C) / 98.1 (F) Weight: 224 lbs 08/10/2016 Blood Pressure 1: 134/60 Code: 8480-6 BMI: 30.2 Code: 20501-5 Heart Rate 1: 76 bpm Height: 6' [...] 1: 122/72 Code: 8480-6 BMI: 30.7 Code: 93289-6 Heart Rate 1: 96 bpm Height: 6' Respiratory Rate: 22 bpm SpO2: 96% Tempera ture: 35.9 (C) / 96.7 (F) Weight: 226 lbs 04/03/2016 Blood Pressure 1: 146/64 Code: 8480-6 BMI: 30.8 Code: 07757-1 Heart Rate 1: 76 bpm Height: 6' Respiratory Rate: 20 bpm Temperature: 36 .8 (C) / 98.2 (F) Weight: 227 lbs 03/02/2016 Blood Pressure 1: 148/60 Code: 8480-6 BMI: 31.1 Code: 26489-0 Heart Rate 1: 80 bpm Height: 6' Respiratory Rate: 22 bpm SpO2: 94% Tempera ture: 36.6 (C) / 97.8 (F) Weight: 229 lbs 02/17/2016 Blood Pressure 1: 132/60 Code: 8480-6 BMI: 31.3 Code: 48774-6 Heart Rate 1: 80 bpm Height: 6' Respiratory Rate: 20 bpm Temperature: 36 .9 (C) / 98.4 (F) Weight: 231 lbs 02/14/2016 Blood Pressure 1: 126/70 Code: 8480-6 BMI: 31.3 Code: 26685-6 Heart Rate 1: 80 bpm Height: 6' Respiratory Rate: 24 bpm SpO2: 95% Tempera ture: 36.9 (C) / 98.5 (F) Weight: 231 lbs 01/31/2016 Blood Pressure 1: 136/60 Code: 8480-6 Heart Rate 1: 76 bpm Respiratory Rate: 22 bpm Temperature: 37.0 (C) / 98.6 (F) Weight: 230 lbs 12/30/2015 Blood Pressure 1: 128/58 Code: 8480-6 BMI: 31.2 Code: 21317-0 Heart Rate 1: 80 bpm Height: 6' Respiratory Rate: 20 bpm Temperature: 36 .8 (C) / 98.2 (F) Weight: 230 lbs 12/16/2015 Blood Pressure 1: 122/60 Code: 8480-6 BMI: 32.0 Code: 28176-5 Heart Rate 1: 84 bpm Height: 6' Respiratory Rate: 24 bpm Temperature: 37 .1 (C) / 98.7 (F) Weight: 236 lbs 12/06/2015 Blood Pressure 1: 162/74 Code: 8480-6 BMI: 32.5 Code: 72140-7 Heart Rate 1: 90 bpm Height: 6' Respiratory Rate: 20 bpm SpO2: 96% Tempera ture: 36.4 (C) / 97.6 (F) Weight: 240 lbs 11/15/2015 Blood Pressure 1: 166/80 Code: 8480-6 BMI: 32.4 Code: 64867-9 Heart Rate 1: 92 bpm Height: 6' Respiratory Rate: 28 bpm Temperature: 36 .5 (C) / 97.7 (F) Weight: 239 lbs 10/05/2015 Blood Pressure 1: 146/76 Code: 8480-6 BMI: 32.4 Code: 83371-3 Heart Rate 1: 88 bpm Height: 6' Respiratory Rate: 28 bpm Temperature: 37 .1 (C) / 98.7 (F) Weight: 239 lbs 07/22/2015 Blood Pressure 1: 144/68 Code: 8480-6 BMI: 31.9 Code: 98019-2 Heart Rate 1: 88 bpm Height: 6' [...] 1: 142/64 Code: 8480-6 BMI: 32.1 Code: 33704-1 Heart Rate 1: 80 bpm Height: 6' Respiratory Rate: 18 bpm Temperature: 36 .4 (C) / 97.6 (F) Weight: 237 lbs 06/07/2015 Blood Pressure 1: 164/58 Code: 8480-6 BMI: 32.1 Code: 12611-6 Heart Rate 1: 88 bpm Height: 6' Respiratory Rate: 20 bpm Temperature: 36 .6 (C) / 97.9 (F) Weight: 237 lbs 06/03/2015 Blood Pressure 1: 152/64 Code: 8480-6 BMI: 32.1 Code: 94633-8 Heart Rate 1: 96 bpm Height: 6' Respiratory Rate: 20 bpm Temperature: 37 .4 (C) / 99.3 (F) Weight: 237 lbs 06/01/2015 Blood Pressure 1: 136/70 Code: 8480-6 BMI: 31.7 Code: 33002-3 Heart Rate 1: 72 bpm Height: 6' Respiratory Rate: 22 bpm SpO2: 94% Tempera ture: 36.6 (C) / 97.9 (F) Weight: 234 lbs 02/25/2015 Blood Pressure 1: 146/80 Code: 8480-6 BMI: 32.4 Code: 03442-1 Heart Rate 1: 84 bpm Height: 6' Respiratory Rate: 28 bpm Temperature: 36 .7 (C) / 98.0 (F) Weight: 239 lbs 10/27/2014 Blood Pressure 1: 168/70 Code: 8480-6 BMI: 32.0 Code: 45487-7 Heart Rate 1: 80 bpm Height: 6' Respiratory Rate: 30 bpm SpO2: 98% Tempera ture: 36.4 (C) / 97.6 (F) Weight: 236 lbs 10/21/2014 Blood Pressure 1: 152/58 Code: 8480-6 BMI: 32.1 Code: 58152-6 Heart Rate 1: 78 bpm Height: 6' Respiratory Rate: 20 bpm Temperature: 37 .8 (C) / 100.1 (F) Weight: 237 lbs 10/06/2014 Blood Pressure 1: 132/64 Code: 8480-6 BMI: 32.5 Code: 19537-5 Heart Rate 1: 88 bpm Height: 6' Respiratory Rate: 32 bpm SpO2: 94% Tempera ture: 36.8 (C) / 98.2 (F) Weight: 240 lbs 09/21/2014 Blood Pressure 1: 134/68 Code: 8480-6 BMI: 32.4 Code: 21107-5 Heart Rate 1: 96 bpm Height: 6' Respiratory Rate: 30 bpm Temperature: 36 .7 (C) / 98.1 (F) Weight: 239 lbs 09/08/2014 Blood Pressure 1: 128/74 Code: 8480-6 BMI: 32.4 Code: 94570-3 Heart Rate 1: 82 bpm Height: 6' Respiratory Rate: 28 bpm SpO2: 93% Tempera ture: 36.6 (C) / 97.8 (F) Weight: 239 lbs 09/02/2014 Blood Pressure 1: 164/78 Code: 8480-6 Heart Rate 1: 86 bpm Respiratory Rate: 22 bpm SpO2: 96% Temperature: 36.1 (C) / 97.0 (F) We ight: 239 lbs 08/10/2014 Blood Pressure 1: 152/60 Code: 8480-6 BMI: 32.8 Code: 73737-6 Heart Rate 1: 80 bpm Height: 6' [...] 1: 146/80 Code: 8480-6 BMI: 33.9 Code: 61592-4 Heart Rate 1: 80 bpm Height: 6' [...] 1: 148/78 Code: 8480-6 BMI: 30.5 Code: 74328-3 Heart Rate 1: 84 bpm Height: 6' Respiratory Rate: 28 bpm SpO2: 97% Tempera ture: 36.4 (C) / 97.5 (F) Weight: 225 lbs 08/06/2013 Blood Pressure 1: 158/70 Code: 8480-6 Heart Rate 1: 110 bpm Respiratory Rate: 22 bpm SpO2: 88% Temperature: 39.7 (C) / 103.4 (F) W eight: 07/16/2013 Blood Pressure 1: 148/82 Code: 8480-6 BMI: 31.9 Code: 06610-8 Heart Rate 1: 80 bpm Height: 6' Respiratory Rate: 20 bpm Temperature: 36 .6 (C) / 97.9 (F) Weight: 235 lbs 04/09/2013 Blood Pressure 1: 142/78 Code: 8480-6 BMI: 31.5 Code: 13344-3 Heart Rate 1: 88 bpm Height: 6' Respiratory Rate: 32 bpm SpO2: 95% Tempera ture: 37.0 (C) / 98.6 (F) Weight: 232 lbs 02/11/2013 Blood Pressure 1: 146/70 Code: 8480-6 Heart Rate 1: 88 bpm Respiratory Rate: 20 bpm Temperature: 36.8 (C) / 98.3 (F) Weight: 230 lbs 01/31/2013 Blood Pressure 1: 128/70 Code: 8480-6 BMI: 31.6 Code: 16877-5 Heart Rate 1: 84 bpm Height: 6' Respiratory Rate: 24 bpm SpO2: 92% Tempera ture: 36.7 (C) / 98.0 (F) Weight: 233 lbs 01/20/2013 Blood Pressure 1: 148/64 Code: 8480-6 BMI: 31.6 Code: 89618-7 Heart Rate 1: 68 bpm Height: 6' Temperature: 36.1 (C) / 97.0 (F) Weight: 233 lbs 12/19/2012 Blood Pressure 1: 128/68 Code: 8480-6 BMI: 32.0 Code: 39699-5 Heart Rate 1: 64 bpm Height: 6' Temperature: 36.7 (C) / 98.0 (F) Weight: 236 lbs 10/21/2012 Blood Pressure 1: 142/64 Code: 8480-6 BMI: 30.9 Code: 13421-1 Heart Rate 1: 74 bpm Height: 6' Temperature: 36.2 (C) / 97.1 (F) Weight: 228 lbs 09/18/2012 Blood Pressure 1: 126/60 Code: 8480-6 BMI: 31.3 Code: 72752-3 Heart Rate 1: 88 bpm Height: 6' Respiratory Rate: 20 bpm Temperature: 36 .5 (C) / 97.7 (F) Weight: 231 lbs 08/28/2012 Blood Pressure 1: 132/68 Code: 8480-6 BMI: 31.5 Code: 42769-2 Heart Rate 1: 92 bpm Height: 6' Respiratory Rate: 30 bpm SpO2: 94% Tempera ture: 37.1 (C) / 98.7 (F) Weight: 232 lbs 07/10/2012 Blood Pressure 1: 118/70 Code: 8480-6 BMI: 30.5 Code: 75457-8 Heart Rate 1: 72 bpm Height: 6' Respiratory Rate: 24 bpm SpO2: 96% Tempera ture: 36.7 (C) / 98.0 (F) Weight: 225 lbs 05/09/2012 Blood Pressure 1: 124/68 Code: 8480-6 BMI: 29.8 Code: 83442-5 Heart Rate 1: 72 bpm Height: 6' Respiratory Rate: 20 bpm Temperature: 36 .8 (C) / 98.2 (F) Weight: 220 lbs 10/02/2011 Blood Pressure 1: 140/82 Code: 8480-6 BMI: 30.7 Code: 41099-1 Heart Rate 1: 68 bpm Height: 6' Temperature: 36.7 (C) / 98.0 (F) Weight: 226 lbs 08/07/2011 Blood Pressure 1: 122/68 Code: 8480-6 BMI: 30.5 Code: 44836-3 Heart Rate 1: 72 bpm Height: 6' [...] 1: 140/78 Code: 8480-6 BMI: 31.9 Code: 89492-1 Heart Rate 1: 84 bpm Height: 6' Temperature: 36.6 (C) / 97.8 (F) Weight: 235 lbs 12/22/2009 Blood Pressure 1: 140/74 Code: 8480-6 BMI: 31.9 Code: 03544-7 Heart Rate 1: 94 bpm Height: 6' SpO2: 92% Temperature: 35.7 (C) / 96.2 (F) Weight: 235 lbs 12/13/2009 Blood Pressure 1: 146/80 Code: 8480-6 BMI: 33.0 Code: 48328-5 Heart Rate 1: 86 bpm Height: 6' [...] fighting constantly with her. follow up 04/22/2018 [facility] fwup follow up 01/28/2018 knee pain 01/23/2018 nocturia 01/02/2018 dyspnea 12/28/2017 follow up 12/21/2017 chest congestion 12/17/2017 knee pain 12/11/2017 mole check 11/07/2017 follow up 10/17/2017 ER fwup cough 08/02/2017 injection(s) 07/24/2017 Pneumovax follow up 07/02/2017 Patient recently ariel campos on [facility], but never picked up. He was also given prednisone/Zpack on 06/16/17 from walk in clinic. Patient is also in consult with Dr Benjamin. patient dc'd from hospital last week and reports that he is still taking the antibiotic that was prescribed to him (augmentin) and finished out the prednisone. 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 follow up 05/29/2017 Discuss Low [...] nightly. Patient has just been discharged from [facility] with Pneumonia. Currently on Levaquin once daily. [...] fwup follow up 03/13/2016 Patient here for [facility] on medication education for insulin [...] 12/13/2009 Encounters Encounter Performer Location Codes Date ([id number]) OFFICE/OUTPATIENT VISIT EST Diagnosis: Chronic obstructive pulmonary disease, unspecified[ICD10: J44.9] Lita BARAKAT [employer] CPT-4: 70629 03/04/2020 ([id number]) OFFICE/OUTPATIENT VISIT EST Diagnosis: Chronic obstructive pulmonary disease, unspecified[ICD10: J44.9] Lita BARAKAT DO [employer] CPT-4: 42053 02/04/2020 ([id number]) OFFICE/OUTPATIENT VISIT EST Diagnosis: Chronic obstructive pulmonary disease with (acute) exacerbation[ICD10: J44.1] Lita BARAKAT DO [facility] CPT- 4: 97860 12/25/2019 ([id number]) OFFICE/OUTPATIENT VISIT EST Diagnosis: Noncompliance with diabetes treatment[ICD10: Z91.19] Diagnosis: Insomnia[ICD10: G47.00] Diagnosis: Pain in right knee[ICD10: M25.561] [facility] CPT-4: 03060 12/22/2019 ([id number]) OFFICE/OUTPATIENT VISIT EST Diagnosis: Chronic respiratory failure with hypercapnia[ICD10: J96.12] Diagnosis: Chronic airway obstruction, not elsewhere classified[ICD10: J44.9] Diagnosis: Basal cell carcinoma, face[ICD10: C44.310] Lita BARAKAT DO [facility] CPT-4: 43089 11/12/2019 ([id number]) OFFICE/OUTPATIENT VISIT EST Diagnosis: Chronic obstructive pulmonary disease, unspecified[ICD10: J44.9] Diagnosis: Right thyroid nodule[ICD10: E04.1] Lita BARAKAT [employer] [facility] CPT-4: 68614 09/11/2019 ([id number]) OFFICE/OUTPATIENT VISIT EST Diagnosis: Chronic bronchitis[ICD10: J42] 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] Diagnosis: FLU VACCINE[ICD10: Z23] Lita PABLO [facility] CPT-4: 91693 08/07/2019 ([id number]) OFFICE/OUTPATIENT VISIT EST Diagnosis: Chronic obstructive pulmonary disease with (acute) exacerbation[ICD10: J44.1] Autumn BARAKAT DO [facility] CPT- 4: 55912 07/14/2019 ([id number]) OFFICE/OUTPATIENT VISIT EST Diagnosis: Primary insomnia[ICD10: F51.01] Diagnosis: Dyspepsia and other specified disorders of function of stomach[ICD10: K31.89] Lita BARAKAT [employer] [facility] CPT-4: 17947 07/01/2019 ([id number]) OFFICE/OUTPATIENT VISIT EST Diagnosis: Epigastric pain[ICD10: R10.13] Diagnosis: Nausea[ICD10: R11.0] Diagnosis: Weight loss[ICD10: R63.4] Lita AREVALO DO [facility] CPT-4: 31423 06/24/2019 ([id number]) OFFICE/OUTPATIENT VISIT EST Diagnosis: Chronic obstructive pulmonary disease, unspecified[ICD10: J44.9] Diagnosis: Chronic insomnia[ICD10: F51.04] Diagnosis: Anemia[ICD10: D64.9] Diagnosis: Diplopia[ICD10: H53.2] Diagnosis: [place][ICD10: F30.9] Lita BARAKAT DO [facility] CPT-4: 58894 06/17/2019 ([id number]) NURSE/OUTPATIENT VISIT EST Diagnosis: Vitamin B12 deficiency anemia, unspecified[ICD10: D51.9] Lita BARAKAT DO [facility] CPT-4: 34260 06/10/2019 ([id number]) NURSE/OUTPATIENT VISIT EST Diagnosis: Vitamin B12 deficiency anemia, unspecified[ICD10: D51.9] Lita BARAKAT DO [facility] CPT-4: 79996 06/02/2019 ([id number]) NURSE/OUTPATIENT VISIT EST Diagnosis: Vitamin B12 deficiency anemia, unspecified[ICD10: D51.9] Lita BARAKAT DO [facility] CPT-4: 59614 05/27/2019 ([id number]) NURSE/OUTPATIENT VISIT EST Diagnosis: Vitamin B12 deficiency anemia, unspecified[ICD10: D51.9] Lita BARAKAT DO [facility] CPT-4: 00671 05/12/2019 ([id number]) OFFICE/OUTPATIENT VISIT EST Diagnosis: Restless legs syndrome[ICD10: G25.81] Diagnosis: Primary insomnia[ICD10: F51.01] Diagnosis: Anemia, unspecified[ICD10: D64.9] Diagnosis: Type 2 diabetes mellitus with hyperglycemia[ICD10: E11.65] Diagnosis: Vitamin D deficiency, unspecified[ICD10: E55.9] Lita BARAKAT DO [facility] CPT-4: 72069 05/08/2019 ([id number]) OFFICE/OUTPATIENT VISIT EST Diagnosis: Pain in right knee[ICD10: M25.561] Diagnosis: Restless legs syndrome[ICD10: G25.81] Diagnosis: Insomnia, unspecified[ICD10: G47.00] Lita BARAKAT DO [facility] CPT-4: 47082 04/07/2019 ([id number]) NO CHARGE Diagnosis: Chronic obstructive pulmonary disease with (acute) exacerbation[ICD10: J44.1] Diagnosis: Dizziness and giddiness[ICD10: R42] Diagnosis: Generalized anxiety disorder[ICD10: F41.1] Autumn BARAKAT DO [facility] CPT-4: 66912 03/24/2019 ([id number]) OFFICE/OUTPATIENT VISIT EST Diagnosis: Chronic obstructive pulmonary disease with (acute) exacerbation[ICD10: J44.1] Diagnosis: Dizziness and giddiness[ICD10: R42] Autumn BARAKAT [place] [facility] CPT-4: 78920 03/21/2019 ([id number]) OFFICE/OUTPATIENT VISIT EST Diagnosis: Candidal stomatitis[ICD10: B37.0] Lita BARAKAT [place] [facility] CPT-4: 78597 03/13/2019 ([id number]) OFFICE/OUTPATIENT VISIT EST Diagnosis: Chronic obstructive pulmonary disease with acute lower respiratory infection[ICD10: J44.0] Diagnosis: Restless legs syndrome[ICD10: G25.81] Lita BARAKAT [place] [facility] CPT-4: 48875 03/10/2019 ([id number]) OFFICE/OUTPATIENT VISIT EST Diagnosis: Restless legs syndrome[ICD10: G25.81] Lita ARCHERNDBEV JOHNSON [facility] CPT-4: 13046 02/26/2019 ([id number]) OFFICE/OUTPATIENT VISIT EST Diagnosis: Primary insomnia[ICD10: F51.01] Diagnosis: Chronic obstructive pulmonary disease, unspecified[ICD10: J44.9] Lita BARAKAT [place] [facility] CPT-4: 27230 02/13/2019 ([id number]) OFFICE/OUTPATIENT VISIT EST Diagnosis: Chronic obstructive pulmonary disease, unspecified[ICD10: J44.9] Diagnosis: Chronic respiratory failure with hypoxia[ICD10: J96.11] Diagnosis: Chronic respiratory failure with hypercapnia[ICD10: J96.12] Lita ALYLINE Ashley BARAKAT DO [facility] CPT-4: 62856 01/14/2019 ([id number]) OFFICE/OUTPATIENT VISIT EST Diagnosis: Chronic respiratory failure with hypoxia[ICD10: J96.11] Diagnosis: Patient's noncompliance with other medical treatment and regimen[ICD10: Z91.19] Diagnosis: Chronic obstructive pulmonary disease with (acute) exacerbation[ICD10: J44.1] Lita BARAKAT [place] [facility] CPT- 4: 37698 12/25/2018 ([id number]) OFFICE/OUTPATIENT VISIT EST Diagnosis: Essential (primary) hypertension[ICD10: I10] Diagnosis: Type 2 diabetes mellitus with hyperglycemia[ICD10: E11.65] Diagnosis: Hypothyroidism, unspecified[ICD10: E03.9] Diagnosis: Hyperlipidemia, unspecified[ICD10: E78.5] Diagnosis: Acute recurrent maxillary sinusitis[ICD10: J01.01] Ines Banerjee LITA BARAKAT [place] [facility] CPT-4: 56039 12/09/2018 ([id number]) OFFICE/OUTPATIENT VISIT EST Diagnosis: Candidal stomatitis[ICD10: B37.0] Lita Barakat RUSSEL Segura Ashley BARAKAT [place] [facility] CPT-4: 14242 12/05/2018 ([id number]) OFFICE/OUTPATIENT VISIT EST Diagnosis: Acute recurrent sinusitis, unspecified[ICD10: J01.91] Diagnosis: Pain in right knee[ICD10: M25.561] Lita GONZALES Ashley BARAKAT [place] [facility] CPT-4: 57719 10/23/2018 ([id number]) OFFICE/OUTPATIENT VISIT EST Diagnosis: Restless legs syndrome[ICD10: G25.81] Diagnosis: Basal cell carcinoma of skin of scalp and neck[ICD10: C44.41] Lita Yuval ALYLINE Ashley BARAKAT [place] [facility] CPT-4: 36927 08/21/2018 ([id number]) OFFICE/OUTPATIENT VISIT EST Diagnosis: Chronic obstructive pulmonary disease with acute lower respiratory infection[ICD10: J44.0] Diagnosis: Restless legs syndrome[ICD10: G25.81] Lita BARAKAT DO [facility] CPT-4: 66688 08/07/2018 ([id number]) OFFICE/OUTPATIENT VISIT EST Diagnosis: Chronic obstructive pulmonary disease with acute lower respiratory infection[ICD10: J44.0] Lita BARAKAT DO [facility] CPT-4: 10680 05/23/2018 ([id number]) OFFICE/OUTPATIENT VISIT EST Diagnosis: Candidal stomatitis[ICD10: B37.0] Lita BARAKAT DO [facility] CPT-4: 04906 05/02/2018 ([id number]) OFFICE/OUTPATIENT VISIT EST Diagnosis: Candidal stomatitis[ICD10: B37.0] Diagnosis: Other retention of urine[ICD10: R33.8] Diagnosis: Chronic obstructive pulmonary disease with acute lower respiratory infection[ICD10: J44.0] Autumn BARAKAT [facility] CPT-4: 07898 04/29/2018 ([id number]) OFFICE/OUTPATIENT VISIT EST Diagnosis: Chronic obstructive pulmonary disease with acute lower respiratory infection[ICD10: J44.0] Lita BARAKAT DO [facility] CPT-4: 74014 04/22/2018 ([id number]) OFFICE/OUTPATIENT VISIT EST Diagnosis: Unilateral primary osteoarthritis, right knee[ICD10: M17.11] Diagnosis: Squamous cell carcinoma of skin, unspecified[ICD10: C44.92] Lita BARAKAT DO [facility] CPT-4: 19354 01/28/2018 ([id number]) OFFICE/OUTPATIENT VISIT EST Diagnosis: Pain in right knee[ICD10: M25.561] Diagnosis: 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] Lita BARAKAT DO [facility] CPT-4: 40916 01/23/2018 ([id number]) OFFICE/OUTPATIENT VISIT EST Diagnosis: Urinary tract infection, site not specified[ICD10: N39.0] Diagnosis: Chronic obstructive pulmonary disease with acute lower respiratory infection[ICD10: J44.0] Lita BARAKAT [facility] CPT-4: 33684 01/02/2018 ([id number]) OFFICE/OUTPATIENT VISIT EST Diagnosis: Chronic obstructive pulmonary disease with (acute) exacerbation[ICD10: J44.1] Autumn BRAAKAT DO [facility] CPT- 4: 82177 12/28/2017 ([id number]) OFFICE/OUTPATIENT VISIT EST Diagnosis: Acute bronchitis, unspecified[ICD10: J20.9] Autumn BARAKAT DO [facility] CPT-4: 56257 12/21/2017 ([id number]) OFFICE/OUTPATIENT VISIT EST Diagnosis: Chronic obstructive pulmonary disease with acute lower respiratory infection[ICD10: J44.0] Diagnosis: Pain in right knee[ICD10: M25.561] Autumn BARAKAT [facility] CPT-4: 67989 12/17/2017 ([id number]) OFFICE/OUTPATIENT VISIT EST Diagnosis: Laceration without foreign body of right hand, sequela[ICD10: S61.411S] Diagnosis: Restless legs syndrome[ICD10: G25.81] Lita BARAKAT [facility] CPT-4: 43794 10/17/2017 OFFICE/OUTPATIENT VISIT EST Diagnosis: Chronic obstructive pulmonary disease with acute lower respiratory infection[ICD10: J44.0] Autumn BARAKAT [facility] CPT-4: 72544 08/02/2017 ([id number]) OFFICE/OUTPATIENT VISIT EST Diagnosis: PNEUMOCOCCAL VACCINE[ICD10: Z23] Lita BARAKAT [facility] CPT-4: 95479 07/24/2017 OFFICE/OUTPATIENT VISIT EST Diagnosis: Chronic obstructive pulmonary disease with (acute) exacerbation[ICD10: J44.1] Autumn BARAKAT [facility] CPT- 4: 28118 07/02/2017 OFFICE/OUTPATIENT VISIT EST Diagnosis: Low back pain[ICD10: M54.5] Ruchi Buchanan LITAFLOR GHOTRA [facility] CPT-4: 18070 05/29/2017 ([id number]) OFFICE/OUTPATIENT VISIT EST Diagnosis: Essential (primary) hypertension[ICD10: I10] Diagnosis: Hypothyroidism, unspecified[ICD10: E03.9] Diagnosis: Dizziness and giddiness[ICD10: R42] Diagnosis: Other abnormality of red blood cells[ICD10: R71.8] Diagnosis: Contracture of muscle, unspecified site[ICD10: M62.40] Lita BARAKAT DO [facility] CPT-4: 09184 04/17/2017 OFFICE/OUTPATIENT VISIT EST Diagnosis: Pain in left shoulder[ICD10: M25.512] Ruchi Chanel TADEO BARAKAT [employer] [facility] CPT-4: 48852 01/29/2017 ([id number]) OFFICE/OUTPATIENT VISIT EST Diagnosis: Anemia, unspecified[ICD10: D64.9] Lita BARAKAT [employer] [facility] CPT-4: 59177 12/27/2016 ([id number]) OFFICE/OUTPATIENT VISIT EST Diagnosis: Other fatigue[ICD10: R53.83] Diagnosis: Other iron deficiency anemias[ICD10: D50.8] Lita BARAKAT [employer] [facility] CPT-4: 49374 12/21/2016 ([id number]) OFFICE/OUTPATIENT VISIT EST Diagnosis: Anemia, unspecified[ICD10: D64.9] Diagnosis: Other fatigue[ICD10: R53.83] Diagnosis: Restless legs syndrome[ICD10: G25.81] Lita BARAKAT DO [facility] CPT-4: 69490 12/14/2016 ([id number]) OFFICE/OUTPATIENT VISIT EST Diagnosis: Anemia, unspecified[ICD10: D64.9] Diagnosis: Other abnormality of red blood cells[ICD10: R71.8] Lita BARAKAT DO [facility] CPT-4: 36604 12/12/2016 ([id number]) OFFICE/OUTPATIENT VISIT EST Diagnosis: Pneumonia, unspecified organism[ICD10: J18.9] Diagnosis: Restless legs syndrome[ICD10: G25.81] Magda Toth TADEO BARAKAT [employer] [facility] CPT-4: 67893 11/14/2016 ([id number]) OFFICE/OUTPATIENT VISIT EST Diagnosis: Candidal stomatitis[ICD10: B37.0] Lita Giannielvabev RUSSELOSCAR [facility] C[facility]: 22991 10/31/2016 ([id number]) OFFICE/OUTPATIENT VISIT EST Diagnosis: Acute upper respiratory infection, unspecified[ICD10: J06.9] Diagnosis: Personal history of pneumonia (recurrent)[ICD10: Z87.01] Magda Toth LITA Ashley [facility] C[facility]: 35135 10/03/2016 ([id number]) OFFICE/OUTPATIENT VISIT EST Diagnosis: Restless legs syndrome[ICD10: G25.81] Diagnosis: Insomnia, unspecified[ICD10: G47.00] Magda ALY FLOR Ashley [facility] CPT[facility]: 20746 09/04/2016 ([id number]) OFFICE/OUTPATIENT VISIT EST Diagnosis: Restless legs syndrome[ICD10: G25.81] Diagnosis: Primary insomnia[ICD10: F51.01] Lita Giannielvabev ALYLITA Ashley [facility] CPT[facility]: 37349 08/10/2016 OFFICE/OUTPATIENT VISIT EST Diagnosis: Toxic gastroenteritis and colitis[ICD10: K52.1] Diagnosis: Dizziness and giddiness[ICD10: R42] Diagnosis: Headache[ICD10: R51] Diagnosis: Restless legs syndrome[ICD10: G25.81] Lita Giannibetty TRAN Ashley [facility] CPT-4: 14434 07/06/2016 ([id number]) OFFICE/OUTPATIENT VISIT EST Diagnosis: Chest pain, unspecified[ICD10: R07.9] Diagnosis: Dyspnea, unspecified[ICD10: R06.00] Magda Toth ELLIS CONDE Ashley [facility] CPT-4: 13986 06/22/2016 ([id number]) OFFICE/OUTPATIENT VISIT EST 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] Diagnosis: PNEUMOCOCCAL VACCINE[ICD10: Z23] Diagnosis: FLU VACCINE[ICD10: Z23] Lita CRAWFORD Ashley [facility] CPT-4: 54216 06/13/2016 ([id number]) OFFICE/OUTPATIENT VISIT EST Diagnosis: Chest pain, unspecified[ICD10: R07.9] Diagnosis: Other forms of dyspnea[ICD10: R06.09] Diagnosis: Shortness of breath[ICD10: R06.02] Diagnosis: Other fatigue[ICD10: R53.83] Magda BARAKAT [facility] CPT-4: 54227 06/01/2016 ([id number]) OFFICE/OUTPATIENT VISIT EST Diagnosis: Unspecified hearing loss, left ear[ICD10: H91.92] Diagnosis: Other specified disorders of Eustachian tube, left ear[ICD10: H69.82] Magda ALYLINE Ashley BARAKTA [facility] CPT-4: 02150 11/2015 ([id number]) OFFICE/OUTPATIENT VISIT EST Diagnosis: Impacted cerumen, bilateral[ICD10: H61.23] Diagnosis: DM W/O COMPLICATION TYPE I, 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: E10.9] Diagnosis: Generalized anxiety disorder[ICD10: F41.1] Lita Yuval ALYLINE Ashley [facility] [employer] [facility] CPT-4: 94844 04/03/2016 ([id number]) OFFICE/OUTPATIENT VISIT EST Diagnosis: 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] Lita Yuval ALYLINE Ashley [facility] CPT - 4: 37186 03/13/2016 ([id number]) OFFICE/OUTPATIENT VISIT EST Diagnosis: Type 2 diabetes mellitus with hyperglycemia[ICD10: E11.65] Diagnosis: Hyperlipidemia, unspecified[ICD10: E78.5] Diagnosis: Essential (primary) hypertension[ICD10: I10] Diagnosis: Chronic obstructive pulmonary disease, unspecified[ICD10: J44.9] Diagnosis: Testicular hypofunction[ICD10: E29.1] Diagnosis: Male erectile dysfunction, unspecified[ICD10: N52.9] Diagnosis: Anemia, unspecified[ICD10: D64.9] Lita Giannibetty Segura Ashley [facility] [employer] [facility] CPT-4: 71861 03/06/2016 ([id number]) OFFICE/OUTPATIENT VISIT EST Diagnosis: Type 2 diabetes mellitus with hyperglycemia[ICD10: E11.65] Diagnosis: Hyperlipidemia, unspecified[ICD10: E78.5] Diagnosis: Chronic obstructive pulmonary disease, unspecified[ICD10: J44.9] Diagnosis: Male erectile dysfunction, unspecified[ICD10: N52.9] Lita BARAKAT DO [facility] CPT-4: 01508 03/02/2016 ([id number]) OFFICE/OUTPATIENT VISIT EST Diagnosis: Pain in right foot[ICD10: M79.671] Magda BARAKAT DO [facility] CPT-4: 06172 02/14/2016 OFFICE/OUTPATIENT VISIT EST Diagnosis: Generalized anxiety disorder[ICD10: F41.1] Lita BARAKAT DO [facility] CPT-4: 34992 01/31/2016 ([id number]) OFFICE/OUTPATIENT VISIT EST Diagnosis: Generalized anxiety disorder[ICD10: F41.1] Lita BARAKAT DO [facility] CPT-4: 72226 12/30/2015 ([id number]) OFFICE/OUTPATIENT VISIT EST Diagnosis: Localized swelling, mass and lump, neck[ICD10: R22.1] Lita BARAKAT DO [facility] CPT-4: 19920 12/16/2015 OFFICE/OUTPATIENT VISIT EST Diagnosis: Localized enlarged lymph nodes[ICD10: R59.0] Diagnosis: Otalgia, left ear[ICD10: H92.02] Stephanie BARAKAT DO [facility] CPT-4: 96215 12/06/2015 OFFICE/OUTPATIENT VISIT EST Diagnosis: Localized enlarged lymph nodes[ICD10: R59.0] Diagnosis: Squamous cell carcinoma of skin, unspecified[ICD10: C44.92] Diagnosis: Actinic keratosis[ICD10: L57.0] Stephanie BARAKAT DO [facility] CPT-4: 03777 11/15/2015 OFFICE/OUTPATIENT VISIT EST Diagnosis: Cellulitis of left lower limb[ICD10: L03.116] Diagnosis: Encounter for examination and observation for other specified reasons[ICD10: Z04.8] Diagnosis: Chronic obstructive pulmonary disease, unspecified[ICD10: J44.9] Stephanie BARAKAT DO [facility] CPT-4: 41228 07/22/2015 OFFICE/OUTPATIENT VISIT EST Diagnosis: Other specified joint disorders, left knee[ICD10: M25.862] Diagnosis: Cellulitis of left lower limb[ICD10: L03.116] Diagnosis: Other fatigue[ICD10: R53.83] Diagnosis: Hyperlipidemia, unspecified[ICD10: E78.5] Stephanie BARAKAT DO [facility] CPT-4: 55496 07/01/2015 OFFICE/OUTPATIENT VISIT EST Diagnosis: Pain in left knee[ICD10: M25.562] Diagnosis: Cellulitis of left lower limb[ICD10: L03.116] Diagnosis: Other specified joint disorders, left knee[ICD10: M25.862] Stephanie BARAKAT [facility] CPT-4: 91692 06/28/2015 OFFICE/OUTPATIENT VISIT EST Diagnosis: PREPATELLAR BURSITIS[ICD9: 726.65] Diagnosis: Cellulitis of knee, left[ICD9: 682.6] Stephanie BARAKAT [facility] CPT-4: 66713 06/09/2015 ([id number]) OFFICE/OUTPATIENT VISIT EST Diagnosis: PREPATELLAR BURSITIS[ICD9: 726.65] Diagnosis: Cellulitis of knee, left[ICD9: 682.6] Lita BARAKAT [facility] CPT-4: 81289 06/07/2015 OFFICE/OUTPATIENT VISIT EST Diagnosis: Cellulitis of knee, left[ICD9: 682.6] Stephanie BARAKAT [facility] CPT-4: 37996 06/03/2015 ([id number]) OFFICE/OUTPATIENT VISIT EST Diagnosis: DM W/O COMPLICATION TYPE II, UNCONTROLLED[ICD9: 250.02] Diagnosis: COPD[ICD9: 496] Lita BARAKAT [facility] CPT- 4: 38484 06/01/2015 ([id number]) OFFICE/OUTPATIENT VISIT EST Diagnosis: COPD[ICD9: 496] Diagnosis: DYSPNEA[ICD9: 786.09] Diagnosis: DM W/O COMPLICATION TYPE II, UNCONTROLLED[ICD9: 250.02] Diagnosis: Actinic keratosis[ICD9: 702.0] Lita BARAKAT [employer] [facility] CPT-4: 43984 02/25/2015 ([id number]) OFFICE/OUTPATIENT VISIT EST Diagnosis: ASTHMA NOS[ICD9: 493.90] Diagnosis: COPD[ICD9: 496] Diagnosis: DM W/O COMPLICATION TYPE II, UNCONTROLLED[ICD9: 250.02] Lita BARAKAT [facility] CPT-4: 05924 10/27/2014 OFFICE/OUTPATIENT VISIT EST Diagnosis: DYSPNEA[ICD9: 786.09] Diagnosis: COPD[ICD9: 496] Lita BARAKAT DO [facility] CPT- 4: 68547 10/06/2014 ([id number]) OFFICE/OUTPATIENT VISIT EST Diagnosis: PNEUMONIA, ORGANISM[ICD9: 486] Diagnosis: COPD[ICD9: 496] Diagnosis: DYSPNEA[ICD9: 786.09] Lita BARAKAT [facility] CPT-4: 83065 09/21/2014 OFFICE/OUTPATIENT VISIT EST Diagnosis: PNEUMONIA, ORGANISM[ICD9: 486] Diagnosis: DYSPNEA[ICD9: 786.09] Diagnosis: COUGH[ICD9: 786.2] Stephanie BARAKAT [facility] CPT-4: 59740 09/08/2014 OFFICE/OUTPATIENT VISIT EST Diagnosis: COPD with exacerbation[ICD9: 491.21] Diagnosis: COUGH[ICD9: 786.2] Diagnosis: DYSPNEA[ICD9: 786.09] Stephanie BARAKAT DO [facility] CPT-4: 26832 09/02/2014 ([id number]) OFFICE/OUTPATIENT VISIT EST Diagnosis: DM W/O COMPLICATION TYPE II, UNCONTROLLED[ICD9: 250.02] Lita BARAKAT [facility] CPT-4: 84768 08/27/2014 ([id number]) OFFICE/OUTPATIENT VISIT EST Diagnosis: DM W/O COMPLICATION TYPE II, UNCONTROLLED[ICD9: 250.02] Diagnosis: HYPERLIPIDEMIA NEC/NOS[ICD9: 272.4] Diagnosis: HYPERTENSION[ICD9: 401.9] Diagnosis: COPD[ICD9: 496] Diagnosis: FLU VACCINE[ICD10: Z23] Lita PABLO [facility] CPT-4: 12276 08/05/2014 ([id number]) OFFICE/OUTPATIENT VISIT EST Diagnosis: COPD[ICD9: 496] Diagnosis: Lumbar degenerative disc disease[ICD9: 722.52] Lita BARAKAT [facility] CPT-4: 17888 05/05/2014 OFFICE/OUTPATIENT VISIT EST Diagnosis: DYSPNEA[ICD9: 786.09] Diagnosis: COPD[ICD9: 496] Lita BARAKAT [facility] CPT- 4: 03191 03/24/2014 ([id number]) OFFICE/OUTPATIENT VISIT EST Diagnosis: COPD[ICD9: 496] Diagnosis: DYSPNEA[ICD9: 786.09] Lita BARAKAT [facility] CPT-4: 94076 03/10/2014 OFFICE/OUTPATIENT VISIT EST Diagnosis: Subacromial bursitis[ICD9: 726.19] Diagnosis: Chronic low back pain[ICD9: 724.2] Diagnosis: Lumbar degenerative disc disease[ICD9: 722.52] Lita BARAKAT [facility] CPT-4: 75992 12/16/2013 ([id number]) OFFICE/OUTPATIENT VISIT EST Diagnosis: PHARYNGITIS, ACUTE[ICD9: 462] Diagnosis: COPD[ICD9: 496] Lita BARAKAT [facility] CPT- 4: 20149 10/09/2013 OFFICE/OUTPATIENT VISIT EST Diagnosis: COPD[ICD9: 496] Diagnosis: Acute exacerbation of chronic obstructive pulmonary disease (COPD)[ICD9: 491.21] Ruchi Buchanan LITA BARAKAT [facility] CPT-4: 18220 09/18/2013 ([id number]) OFFICE/OUTPATIENT VISIT EST Diagnosis: PNEUMONIA, ORGANISM[ICD9: 486] Diagnosis: DM W/O COMPLICATION TYPE II[ICD9: 250.00] Lita BARAKAT [facility] CPT-4: 07069 08/13/2013 ([id number]) OFFICE/OUTPATIENT VISIT EST Diagnosis: DM W/O COMPLICATION TYPE II, UNCONTROLLED[ICD9: 250.02] Diagnosis: HYPERLIPIDEMIA NEC/NOS[ICD9: 272.4] Diagnosis: HYPERTENSION[ICD9: 401.9] Diagnosis: DYSPNEA[ICD9: 786.09] Diagnosis: Family history of CABG[ICD9: V17.49] Lita Ramirez [facility] CPT-4: 89430 07/16/2013 ([id number]) OFFICE/OUTPATIENT VISIT EST Diagnosis: DM W/O COMPLICATION TYPE II, UNCONTROLLED[ICD9: 250.02] Diagnosis: HYPERLIPIDEMIA NEC/NOS[ICD9: 272.4] Diagnosis: HYPERTENSION[ICD9: 401.9] Lita Ramirez [facility] CPT-4: 05614 06/25/2013 OFFICE/OUTPATIENT VISIT EST Diagnosis: COUGH[ICD9: 786.2] Diagnosis: COPD[ICD9: 496] Kimberly Ramirez [facility] CPT- 4: 50475 04/09/2013 ([id number]) OFFICE/OUTPATIENT VISIT EST Diagnosis: Muscle spasm[ICD9: 728.85] Diagnosis: ARTHRALGIA-MULTIPLE SITES[ICD9: 719.49] Lita Ramirez [facility] CPT-4: 27692 02/11/2013 OFFICE/OUTPATIENT VISIT EST Diagnosis: COPD with exacerbation[ICD9: 491.21] Diagnosis: BRONCHITIS, ACUTE[ICD9: 466.0] Ruchi [facility] CPT[facility]: 12518 01/31/2013 OFFICE/OUTPATIENT VISIT EST Diagnosis: COUGH[ICD9: 786.2] Diagnosis: PHARYNGITIS, ACUTE[ICD9: 462] Diagnosis: SINUSITIS, ACUTE[ICD9: 461.9] Lita Ramirez [facility] CPT-4: 38050 01/20/2013 OFFICE/OUTPATIENT VISIT EST Diagnosis: DIZZINESS/VERTIGO[ICD9: 780.4] [facility]: 40773 12/19/2012 OFFICE/OUTPATIENT VISIT EST Diagnosis: Skin lesion of left arm[ICD9: 709.9] Diagnosis: Otitis externa[ICD9: 380.10] Diagnosis: PHARYNGITIS, ACUTE[ICD9: 462] Lita [facility] CPT[facility]: 82018 10/21/2012 ([id number]) OFFICE/OUTPATIENT VISIT EST Diagnosis: DM W/O COMPLICATION TYPE II, UNCONTROLLED[ICD9: 250.02] Diagnosis: HYPERLIPIDEMIA NEC/NOS[ICD9: 272.4] Diagnosis: HYPERTENSION[ICD9: 401.9] [facility] 79478 09/19/2012 ([id number]) OFFICE/OUTPATIENT VISIT EST Diagnosis: DM W/O COMPLICATION TYPE II, UNCONTROLLED[ICD9: 250.02] Diagnosis: HYPERLIPIDEMIA NEC/NOS[ICD9: 272.4] Diagnosis: COPD[ICD9: 496] Lita [facility] CPT- 4: 74539 09/18/2012 ([id number]) OFFICE/OUTPATIENT VISIT EST Diagnosis: BRONCHITIS, ACUTE[ICD9: 466.0] Diagnosis: SINUSITIS, ACUTE[ICD9: 461.9] Lita [facility] CPT[facility]: 69298 08/28/2012 ([id number]) OFFICE/OUTPATIENT VISIT EST Diagnosis: COPD[ICD9: 496] Diagnosis: DYSPNEA[ICD9: 786.09] Diagnosis: VAC STREP PNEUMONIAE-FLU (Medicare)[ICD9: V06.6] Lita [facility] CPT[facility]: 45875 07/10/2012 ([id number]) OFFICE/OUTPATIENT VISIT EST Diagnosis: DM W/O COMPLICATION TYPE II, UNCONTROLLED[ICD9: 250.02] Diagnosis: HYPERTENSION[ICD9: 401.9] Diagnosis: HYPERLIPIDEMIA NEC/NOS[ICD9: 272.4] Diagnosis: DIZZINESS/VERTIGO[ICD9: 780.4] Lita [facility] CPT-[facility]: 32325 05/09/2012 ([id number]) OFFICE/OUTPATIENT VISIT EST Diagnosis: DM W/O COMPLICATION TYPE II, UNCONTROLLED[ICD9: 250.02] Diagnosis: HYPERLIPIDEMIA NEC/NOS[ICD9: 272.4] Diagnosis: HYPERTENSION[ICD9: 401.9] Diagnosis: MALAISE AND FATIGUE[ICD9: 780.79] Lita Segura SFerdinand ARCHERNDER [facility] CPT-4: 29975 05/06/2012 OFFICE/OUTPATIENT VISIT EST Diagnosis: COUGH[ICD9: 786.2] Diagnosis: SINUSITIS, ACUTE[ICD9: 461.9] Diagnosis: PHARYNGITIS, ACUTE[ICD9: 462] Lita CRAWFORD SFerdinand ARCHERNDER [facility] CPT-4: 89684 10/02/2011 OFFICE/OUTPATIENT VISIT EST Diagnosis: DM W/O COMPLICATION TYPE II, UNCONTROLLED[ICD9: 250.02] Diagnosis: HYPERLIPIDEMIA NEC/NOS[ICD9: 272.4] Diagnosis: HYPERTENSION[ICD9: 401.9] Diagnosis: COPD[ICD9: 496] Lita CRAWFORD SFerdinand ARCHERNDER DO [facility] CPT- 4: 95224 08/07/2011 OFFICE/OUTPATIENT VISIT EST Lita CRAWFORD S. ORE NDER DO [facility] CPT- 4: 07768 04/03/2011 ([id number]) OFFICE/OUTPATIENT VISIT EST Lita PALACIOS S. ORENDER DO [facility] CPT-4: 48684 01/18/2011 ([id number]) OFFICE/OUTPATIENT VISIT EST Lita PALACIOS S. ORENDER DO [facility] CPT-4: 88610 12/19/2010 ([id number]) OFFICE/OUTPATIENT VISIT, EST Lita Oreelvabev HOLMAN S. ORENDER DO [facility] CPT-4: 44360 04/05/2010 ([id number]) OFFICE/OUTPATIENT VISIT, EST Lita Giannielvabev HOLMAN S. ORENDER DO [facility] CPT-4: 48152 01/13/2010 ([id number]) OFFICE/OUTPATIENT VISIT, EST Lita Giannielvabev ALIZE MANDA S. ORENDER DO [facility] CPT-4: 41210 12/23/2009 ([id number]) OFFICE/OUTPATIENT VISIT, EST Lita Giannielvabev ALIZE MANDA S. ORENDER DO [facility] CPT-4: 18335 12/22/2009 ([id number]) OFFICE/OUTPATIENT VISIT, EST [facility] CPT-4: 22774 12/13/2009 Plan of Care Planned Activity Notes [...] : J44.9 02/04/2020 Appointment: Lita Barakat WPtel: [address] [place], [place] [phone] US MEDICATION REVIEW 02/04/2020 Visit Diagnosis Plan: Chronic obstructiv e pulmonary disease with (acute) exacerbation Discussion: Solumedrol 125mg IM Continue SVNs every 4hrs Prednisone for 1 week COVID-19 precautions ICD-9 : 491.21 ICD-10 : J44.1 12/25/2019 Appointment: Lita Barakat WPtel: [address] [place], [place] [phone] FOLLOW UP 12/25/2019 Patient Education: prednisone- Optimize[employer] Coupon [id number] https://www.[employer]d/resources/getResource/61/td1ll9s3-2c4x-921v-68 Completed 12/25/2019 Visit Diagnosis Plan: Noncompliance with [...] M25.561 12/22/2019 Appointment: Lita Barakat [facility] [phone] [facility] [facility] 12/22/2019 Patient Education: baclofen- [employer] Coupon [id number] https://www.[employer]/samplemd/resources/getResource/61/xq3mp926-vho2-5qn7-39 Completed 12/22/2019 Visit Diagnosis Plan: Chronic respiratory [...] C44.310 11/12/2019 Appointment: Lita Barakat [facility]el[facility] [phone] [facility] [place] AC[place] ILLNESS 11/12/2019 Care Plan: Referral Order SNOMED-CT : 30 [id number] Pending 11/12/2019 Care Plan: Referral Order SNOMED-CT : 30 6405179 Pending 11/12/2019 Visit Diagnosis Plan: Right thyroid nodule Discussion: Check thyroid US ICD-9 : 241.0 ICD-10 : E04.1 09/11/2019 Visit Diagnosis Plan: Chronic obstructive pulmonary di sease, unspecified Discussion: Start Pulmonary Rehab Reviewed results of CT of chest ordered by pulmonology Follow Up: 3 months ICD-9 : 496 ICD-10 : J44.9 09/11/2019 Appointment: Lita Barakat WPtel: [address] [place], [place] [phone] US MEDICATION REVIEW 09/11/2019 Care Plan: US EXAM OF HEAD AND NECK LOIN C : 46180-6 Pending 09/11/2019 Visit Diagnosis Plan: Chronic bronchitis Discussion: A ugmentin for 10 days ICD-9 : 491.9 ICD-10 : J42 08/07/2019 Appointment: Lita Barakat WPtel: [address] [place], [place] [phone] ACUTE ILLNESS 08/07/2019 Visit Diagnosis Plan: Chronic [...] ICD-10 : J44.1 07/14/2019 Appointment: Autumn Oneil [address] [place], [place] [id number] ACUTE ILLNESS 07/14/2019 Visit Diagnosis [...] : F51.01 07/01/2019 Appointment: Lita Barakat WPtel: [address] [place], [place] [phone] US FOLLOW UP 07/01/2019 Care Plan: CT ABDOMEN W/O DYE LOINC : 36 103-0 Pending 07/01/2019 Care Plan: Referral Order SNOMED-CT : 30 [id number] Pending 07/01/2019 Visit Diagnosis Plan: Weight loss [...] R10.13 06/24/2019 Appointment: Lita Barakat [facility]Ptel[facility] [phone] [facility] [place] 06/24/2019 Patient Education: Seroquel- Opt[employer] Coupon [id number] https://www.[employer]/sampleInterStelNet/resources/getResource/61/2jb1l6l2-q671-88x3-02 Completed 06/24/2019 Patient Education: ondansetron HCl- OptimizeRX Coupon [id number] https://www.[employer]/sampleInterStelNet/resources/getResource/61/3576507l-2915-38x6-t0 Completed 06/24/2019 Care Plan: US EXAM ABDOM COMPLETE LOINC : 44612-5 Pending 06/24/2019 Visit Diagnosis Plan: Chronic insomnia [...] : H53.2 06/17/2019 Appointment: Lita Barakat WPtel: [phone] [place], [place] [phone] US FOLLOW UP 06/17/2019 Appointment: Lita Barakat WPtel: [address] [place], [place] [phone] US INJECTION 06/10/2019 Appointment: Lita Barakat WPtel: [address] [place], [place] [phone] US INJECTION 06/02/2019 Appointment: Lita Barakat WPtel: [address] [place], [place] [phone] US INJECTION 05/27/2019 Appointment: Lita Barakat WPtel: [address] [place], [place] [phone] US INJECTION 05/12/2019 Visit Diagnosis Plan: Anemia, [...] : E55.9 05/08/2019 Appointment: Lita Barakat WPtel: [id number] [facility] FOLLOW UP 05/08/2019 Visit Diagnosis Plan: Pain in right knee Discussion: S top tramadol and tylenol q HS Trial of Hydrocodone 10/325mg po q HS Recheck 1month ICD-9 : 719.46 ICD-10 : M25.561 04/07/2019 Appointment: Lita Barakat WPtel: [facility] [place] Hospital Follow Up 04/07/2019 Visit Diagnosis Plan: [...] : F41.1 03/24/2019 Appointment: Autumn Oneil [address] [place], [place] [phone] ACUTE ILLNESS 03/24/2019 Patient Education: hydroxyzine HCl- [employer] Coupon [id number] Completed 03/24/2019 Patient Education: pantoprazole- [employer] Coupon [id number] Completed 03/24/2019 Visit Diagnosis Plan: Chronic obstructiv e pulmonary disease with (acute) exacerbation Discussion: 90 mg solumedrol given in of fice. patient's portable oxygen tank was empty. [id number] patient on importance of monitoring oxygen tank [...] : R42 03/21/2019 Appointment: Autumn [facility] [address] [facility] ACUTE ILLNESS 03/21/2019 Patient Education: ipratropium-albuterol- Optimize[employer] C oupon [id number] https://www.[employer].com/samplemd/resources/getResource/61/g2mk75p6-x3i4-1n5w-99 Completed 03/21/2019 Visit Diagnosis Plan: Chronic obstructiv [...] Appointment: Lita Barakat WPtel: [address] [facility] ACUTE ILLNESS 03/13/2019 Patient Education: losartan- [employer] Coupon [id number] Completed 03/13/2019 Patient Education: nystatin- [employer] Coupon [id number] Completed 03/13/2019 Patient Education: fluconazole- [employer] Coupon [id number] Completed 03/13/2019 Visit Diagnosis Plan: Chronic obstructiv [...] : G25.81 03/10/2019 Appointment: Lita Barakat WPtel: [address] [place], [place] [phone] ACUTE ILLNESS 03/10/2019 Visit Diagnosis Plan: Restless legs syndrome Discussio n: Stop requip Increase sinemet to TID Add children's chewable MV with iron BID Add magnesium oxide 400mg daily Add Lyrica 75mg po q HS Stop trazadone Recheck 3 weeks Follow Up: 3 weeks ICD-9 : 333.94 ICD-10 : G25.81 02/26/2019 Appointment: Lita Barakat WPtel: [address] [place], [place] [phone] ACUTE ILLNESS 02/26/2019 Visit Diagnosis Plan: Primary insomnia Discussion: Tri al of doxepin 10-20mg po q HS prn sleep ICD-9 : 780.52 ICD-10 : F51.01 02/13/2019 Visit Diagnosis Plan: Chronic obstructive pulmonary di sease, unspecified Discussion: Stable Discussed trip to [place]--will get oxygen setup through [facility] ICD-9 : 496 ICD-10 : J44.9 02/13/2019 Appointment: Lita Barakat WPtel: [address] [place], [place] [phone] [place] FOLLOW UP 02/13/2019 Patient Education: doxepin- [employer] Coupon [id number] https://www.[employer]/samplemd/resources/getResource/61/91c0y34c-[email or web address]-914t-9y Completed 02/13/2019 Appointment: Lita Barakat WPtel: [address] [place], [place] [phone] [place] CANCELED 01/20/2019 Visit Diagnosis Plan: Chronic obstructive pulmonary di sease, unspecified Discussion: Stable on oxygen Given Symbicort samples Follow Up: 1 months ICD-9 : 496 ICD-10 : J44.9 01/14/2019 Appointment: Lita Barakat WPtel: [address] [place], [place] [id number] Hospital Follow Up 01/14/2019 Visit Diagnosis [...] : J96.11 12/25/2018 Appointment: Lita Barakat WPtel: [address] [place] [address] Follow Up 12/25/2018 Appointment: Lita Barakat WPtel: [address] [place], [place] [phone] CANCELED 12/23/2018 Appointment: Ines Banerjee [address] [place], [place] [phone] CANCELED 12/20/2018 Visit Diagnosis Plan: Acute recurrent [...] : 401.9 ICD-10 : I10 12/09/2018 Appointment: nIes Banerjee [facility] LAB 12/09/2018 Patient Education: cefdinir- Optimize[employer] Coupon [id number] https://www.[employer]/samplemd/resources/getResource/61/j0679w4e-73da-0999-90 Completed 12/09/2018 Visit Diagnosis Plan: Candidal stomatitis Discussion: Diflucan for 5 days Hold atorvastatin while taking ICD-9 : 112.0 ICD-10 : B37.0 12/05/2018 Appointment: Lita Barakat WPtel: [address] [place] [address] ACUTE ILLNESS 12/05/2018 Patient Education: fluconazole- Optimize[employer] Coupon [id number] https://www.[employer]/sampleInterStelNet/resources/getResource/61/6r218r13-1er7-19d8-54 Completed 12/05/2018 Appointment: Lita Barakat WPtel: [address] [place] [address] NO SHOW 11/11/2018 Visit Plan: Saline nasal [...] : J01.91 10/23/2018 Appointment: Lita Barakat WPtel: [address] [place] [address] ACUTE ILLNESS 10/23/2018 Patient Education: prednisone- OptimizeRX Coupon [id number] https://www.[employer]/resources/getResource/61/gr4mq489-ombf-5217-28 Completed 10/23/2018 Care Plan: A1C HPLC LOINC : 95097-9 Pending 09/10/2018 Care Plan: COMPREHEN METABOLIC PANEL [place]IL[place] NC : 12467-4 Pending 09/10/2018 Care Plan: CBC Pending 09/10/2018 [...] : G25.81 08/21/2018 Appointment: Lita Barakat WPtel: [address] [place] [address] ACUTE ILLNESS 08/21/2018 Care Plan: Referral Order SNOMED-CT : 30 6944616 Pending 08/21/2018 Visit Diagnosis Plan: Chronic obstructiv [...] : G25.81 08/07/2018 Appointment: Lita Barakat WPtel: [address] [place] [address] LM FOLLOW UP 08/07/2018 Appointment: Lita Barakat WPtel: [address] [place] [address] 07/18/18 1210---see note in chart (km) CANCELED 07/18/2018 Visit Diagnosis Plan: Chronic obstructiv e pulmonary disease with acute lower respiratory infection Discussion: Solumedrol 125mg IM Change t o trelagy 1 inhalation daily Use SVNs with albuterol q4hrs To ER this weekend if worsens Monitor weight/swelling ICD-9 : 496 ICD-10 : J44.0 05/23/2018 Appointment: Lita Barakat WPtel: [address] [place] [address] ACUTE ILLNESS 05/23/2018 Patient Education: Patient Medication Summary Completed 05/23/2018 Visit Diagnosis Plan: Candidal stomatitis Discussion: Diflucan for 7 more days--hold atrovastatin while taking ICD-9 : 112.0 ICD-10 : B37.0 05/02/2018 Appointment: Lita Barakat WPtel: [address] [id number] FOLLOW UP 05/02/2018 Patient Education: Patient Medication [...] ICD-10 : J44.0 04/29/2018 Appointment: Autumn Oneil [address] [place], [place] [id number] ACUTE ILLNESS 04/29/2018 Patient Education: Patient Medication [...] : J44.0 04/22/2018 Appointment: Lita Barakat WPtel: [address] [place], [place] [phone] Hospital Follow Up 04/22/2018 Patient Education: Patient Medication Summary Completed 04/22/2018 Appointment: Lita Barakat WPtel: [address] [place], [place] [phone] 04/09/18 1640---see message in chart from today [...] : M17.11 01/28/2018 Appointment: Lita Barakat WPtel: [address] [place], [place] [phone] ACUTE ILLNESS 01/28/2018 Patient Education: Patient Medication Summary Completed 01/28/2018 Care Plan: Referral Order SNOMED-CT : 30 0971250 Pending 01/28/2018 Care Plan: Referral Order SNOMED-CT : 30 7956701 Pending 01/28/2018 Visit Diagnosis Plan: Functional dyspepsia Discussion: Protonix Call in 1 week on how doing ICD-9 : 536.8 ICD-10 : K30 01/23/2018 Visit Diagnosis Plan: Pain in right knee Discussion: T noemi wong gel QID ICD-9 : 719.46 ICD-10 : M25.561 01/23/2018 Appointment: Lita Barakat WPtel: [address] [place] [address] ACUTE ILLNESS 01/23/2018 Patient Education: Patient Medication [...] : N39.0 01/02/2018 Appointment: Lita Barakat WPtel: [address] [place] [address] ACUTE ILLNESS 01/02/2018 Patient Education: Patient Medication [...] ICD-10 : J44.1 12/28/2017 Appointment: Autumn Oneil [address] [place] [address] Consult 12/28/2017 Patient Education: Patient Medication Summary [...] : J20.9 12/21/2017 Appointment: Autumn Oneil [address] ACUTE ILLNESS 12/21/2017 Patient Education: Patient Medication Summary Completed 12/21/2017 Care Plan: X-RAY EXAM OF KNEE 1 OR 2 right [place] NC : 84081-1 Pending 12/18/2017 Visit Diagnosis Plan: Pain in [...] : J44.0 12/17/2017 Appointment: Autumn Oneil [address] [phone] ACUTE ILLNESS 12/17/2017 Patient Education: Patient Medication Summary Completed 12/17/2017 Visit Diagnosis Plan: Unilateral primary osteoarthriti s, right knee Discussion: Right knee injection as above Warned of elevated BS after injection ICD-9 : 715.96 ICD-10 : M17.11 12/11/2017 Appointment: Lita Barakat WPtel: [address] [place] [address] OFFICE SURGERY 12/11/2017 Patient Education: Patient Medication Summary Completed 12/11/2017 Visit Diagnosis Plan: Actinic keratosis Discussion: Cr yotherapy as above If persists then will need excision by Dr. Swanson ICD-9 : 702.0 ICD-10 : L57.0 11/07/2017 Appointment: Lita Barakat WPtel: [address] [place] [address] ACUTE ILLNESS 11/07/2017 Patient Education: Patient Medication [...] : S61.411S 10/17/2017 Appointment: Lita Barakat WPtel: [address] [place] [address] ER Follow UP 10/17/2017 Patient Education: Patient Medication Summary Completed 10/17/2017 Appointment: Lita Barakat WPtel: [address] [place] [address] Consult 08/15/2017 Visit Diagnosis Plan: Chronic obstructiv [...] ICD-10 : J44.0 08/02/2017 Appointment: Autumn Oneil [address] [place] [address] ACUTE ILLNESS 08/02/2017 Patient Education: Patient Medication Summary Completed 08/02/2017 Patient Education: Patient Medication Summary Completed 07/31/2017 Care Plan: CHEST X-RAY 2VW FRONTAL&LATL LOINC : 21575-9 Pending 07/31/2017 Appointment: Lita Barakat WPtel: [address] [place], [place] [phone] [place] INJECTION 07/24/2017 Patient Education: Patient Medication [...] ICD-10 : J44.1 07/02/2017 Appointment: Autumn Oneil [address] [place] [address] ACUTE ILLNESS 07/02/2017 Patient Education: Patient Medication Summary Completed 07/02/2017 Care Plan: CHEST X-RAY 2VW FRONTAL&LATL LOINC : 25236-8 Pending 07/02/2017 Care Plan: MRI LUMBAR SPINE W/O DYE LOIN C : 46080-6 Pending 05/30/2017 Visit Plan: MRI at [facility] codone 5.325 1 po q 4-6 hours prn pain #40 NR and Cyclobenzaprine (ERx) Continue warm packs for pain RTC if no improvement 05/29/2017 Appointment: Ruchi Buchanan WPtel: [address] [place], [place] [phone] ACUTE ILLNESS 05/29/2017 Patient Education: Patient Medication Summary Completed 05/29/2017 Appointment: Lita Barakat WPtel: [address] [place], [place] [phone] [place] CANCELED 05/24/2017 Patient Education: Patient Medication Summary Completed 05/22/2017 Care Plan: X-RAY EXAM L-S SPINE 2/3 VWS LOINC : 19919-8 Pending 05/22/2017 Appointment: Lita Barakat WPtel: [address] [place] [address] [place] LAB 04/17/2017 Patient Education: Patient Medication Summary Completed 04/17/2017 Referral: Demetrius Benjamin WPtel: [address] [place] [address] Referral Initiated 04/05/2017 Appointment: Lita Barakat WPtel: [address] [place] [address] 03/30/17 0930---spoke with patient about ointments (km Consult 03/30/2017 Appointment: Lita Barakat WPtel: [address] [place] [address] 03/29/17 1320---spoke with patient, requip refilled wasn't received at pharmacy so verbally called (km) Consult 03/29/2017 Patient Education: Patient Medication Summary Completed 03/01/2017 Care Plan: CHEST X-RAY 2VW FRONTAL&LATL LOINC : 68843-1 Pending 03/01/2017 Visit Diagnosis Plan: Bursitis of left shoulder Discus yesi: Injection as above ICD-9 : 726.10 ICD-10 : M75.52 02/01/2017 Appointment: Lita Barakat WPtel: [address] [place] [address] 01/31 confirmed ~sl WORK IN 02/01/2017 Patient Education: Patient Medication Summary Completed 02/01/2017 Care Plan: X-RAY EXAM OF SHOULDER LOINC : 69968-8 Pending 01/30/2017 Visit Plan: May take OTC Tylenol/Ibuprof en as directed XRay at [facility] of left shoulder Tramadol 50mg 1 po q 6 hours prn [facility]. Sedation warning given (no driving, etc) RTC if no improvement 01/29/2017 Appointment: Ruchi Buchanan WPtel: [address] [place] [address] ACUTE ILLNESS 01/29/2017 Appointment: Chanel Ruchi WPtel: [address] [place] [address] ACUTE ILLNESS 01/29/2017 Patient Education: Patient Medication Summary Completed 01/29/2017 Appointment: Lita Barakat WPtel: [address] [place] [address] [place] Consult 01/10/2017 Appointment: Lita Barakat WPtel: [address] [place] [address] 12/27/2016 Patient Education: Patient Medication Summary Completed [...] : R53.83 12/21/2016 Appointment: Lita Barakat WPtel: [address] [place] [address] ACUTE ILLNESS 12/21/2016 Patient Education: Patient Medication Summary Completed 12/21/2016 Appointment: Lita Barakat WPtel: [address] [place] [address] CANCELED 12/18/2016 Visit Diagnosis Plan: Restless legs [...] : D64.9 12/14/2016 Appointment: Lita Barakat WPtel: [address] [place], [place] [id number] 12/13 confirmed ~sl WORK IN 12/14/2016 Appointment: Lita Barakat WPtel: [address] [place], [place] [id number] [place] CANCELED 12/14/2016 Patient Education: Patient Medication Summary Completed 12/14/2016 Appointment: Lita Barakat WPtel: [address] [place], [place] [address] [place] LAB 12/12/2016 Patient Education: Patient Medication Summary Completed 12/12/2016 Appointment: Lita Barakat WPtel: [address] [place] [phone] in ER this weekend--called for reports Consult 12/11/2016 Appointment: Lita Barakat WPtel: [address] [place] [address] [place] CANCELED 12/04/2016 Visit Diagnosis Plan: Pneumonia, [...] ICD-10 : G25.81 11/14/2016 Appointment: Magda Toth [address] [place], [place] [phone] MEDICATION REVIEW 11/14/2016 Patient Education: Patient Medication Summary Completed 11/14/2016 Appointment: Lita Barakat WPtel: [address] [place], [place] [phone] [place] RESCHEDULED 11/02/2016 Visit Diagnosis Plan: Candidal stomatitis Discussion: Diflucan and Nystatin Hold atorvastatin while taking diflucan ICD-9 : 112.0 ICD-10 : B37.0 10/31/2016 Appointment: Lita Barakat WPtel: [address] [place], [place] [phone] ACUTE ILLNESS 10/31/2016 Patient Education: Patient Medication Summary Completed 10/31/2016 Appointment: Lita Barakat WPtel: [address] [place], [place] [phone] [place] Consult 10/23/2016 Appointment: Lita Barakat WPtel: [address] [place], [place] [phone] [place] CANCELED 10/18/2016 Visit Plan: Rx as above Wear O2 at all t imes as instructed by Dr Chacon Continue breathing treatments Supportive care otherwise reviewed Follow up ingrid if not improving 10/03/2016 Appointment: Lita Barakta WPtel: [address] [place], [place] [phone] [place] CANCELED 10/03/2016 Appointment: Magda Toth [address] [place], [place] [phone] ACUTE ILLNESS 10/03/2016 Patient Education: Patient Medication Summary Completed 10/03/2016 Visit Plan: Titrate requip to 1.5mg x 1 week Call if not helpful and will increase to 2mg qHS NO MORE nyquil at bedtime - discussed potential effects of decongestants on heart, oversedating himself, etc Will increase requip, then amitriptyline if needed to desired effect 09/04/2016 Appointment: Magda Toth [address] [place], [place] [phone] ACUTE ILLNESS 09/04/2016 Patient Education: Patient Medication Summary Completed 09/04/2016 Visit Plan: Stop requip and try elavil C ryotherapy as above See ENT for removal of right ear lesion 08/22/2016 Appointment: Lita Barakat WPtel: [address] [place] [address] ACUTE ILLNESS 08/22/2016 Patient Education: Patient Medication Summary Completed 08/22/2016 Visit Plan: Trial of requip 1mg q HS Res tart zoloft Recheck 1month 08/10/2016 Appointment: Lita Barakat WPtel: [address] [place] [address] ACUTE ILLNESS 08/10/2016 Patient Education: Patient Medication Summary Completed 08/10/2016 Visit Plan: Stop HCTZ Flagyl for diarrhe a Hydrate Discussed meds for restless legs Zofran prn Nausea 07/06/2016 Appointment: Lita Barakat WPtel: [address] [place] [address] 07/05 confirmed~ Hospital Follow Up 07/06/2016 Patient Education: Patient Medication Summary Completed 07/06/2016 Visit Plan: Reviewed with Dr Yuval Palacios sidering his recent history, instructed him to go straight to the ER called to notify her so she can meet him there 06/22/2016 Appointment: Navneet Magda [address] [place] [address] ACUTE ILLNESS 06/22/2016 Patient Education: Patient Medication Summary Completed 06/22/2016 Visit Plan: Continue current meds Prevna r 13 and High Dose Flu given 06/13/2016 Appointment: Lita Barakat WPtel: [address] [place] [address] 06/13 confirmed~ WORK IN 06/13/2016 Patient Education: Patient Medication Summary Completed 06/13/2016 Appointment: Lita Barakat WPtel: [address] [place] [address] [place] just went over current medications CANCELED 06/08/2016 Visit Plan: Reviewed POC with Dr Barakat Stat cbc, cmp, d dimer, troponin, bnp, ekg, cxr If any worsening of symptoms while awaiting results, patient instructed to go to ER or call 911 06/01/2016 Appointment: Magda Toth [address] [place], [place] [phone] ACUTE ILLNESS 06/01/2016 Patient Education: Patient Medication Summary Completed 06/01/2016 Referral: José Miguel Swanson WPtel: [address] 04/[address] swanson's office, patient [...] eval and treatment 04/26/2016 Appointment: Magda Toth [address] [place] [address] ACUTE ILLNESS 04/26/2016 Patient Education: Patient Medication Summary Completed 04/26/2016 Care Plan: Referral Order SNOMED-CT : 30 6758180 Pending 04/26/2016 Visit Plan: Left ear flushed after conse nt with warm water with peroxide with ear syringe Patient tolerated well Ear exam is wnl following flushing Follow up PRN 04/05/2016 Appointment: Magda Toth [address] [place] [address] ACUTE ILLNESS 04/05/2016 Patient Education: Patient Medication Summary Completed 04/05/2016 Visit Plan: Increase Levemir to 25u sc d aily Increase sertraline to 2 full tablets daily--200mg Debrox or cerumenex to bilateral ears q HS for 3 nights then flush or fwup for fushing Check lab in 2mos then fwup 04/03/2016 Appointment: Lita Barakat WPtel: [address] [place], [place] [phone] 03/31 7/ lm ~sl FOLLOW UP 04/03/2016 Patient Education: Patient Medication Summary Completed 04/03/2016 Visit Plan: Patient informed of correct dosage of levemir and how to administer. Patient verbalizes understanding and will call if any questions/concerns. 10 Units of Levemir given in office SC to right lower abdom en. Patient tolerated well. Site without redness/irritation. 03/13/2016 Appointment: Lita Barakat WPtel: [address] [facility] SPECIAL 03/13/2016 Patient Education: Patient Medication Summary Completed 03/13/2016 Appointment: Lita Barakat WPtel: [address] [facility] LAB 03/06/2016 Patient Education: Patient Medication Summary Completed 03/06/2016 Visit Plan: Patient saw Dr. Chacon this week and was given prednisone taper for COPD Continue current meds Accuchecks daily Patient will return on Sunday morning for fasting lab incuding CBC, CMP, TSH, free T4, HbA1C, Lipids, Testosterone, PSA 03/02/2016 Appointment: Lita Barakat WPtel: [address] [place], [place] [address] 03/01 confirmed ~sl FOLLOW UP 03/02/2016 Patient [...] how doing 02/17/2016 Appointment: Lita Barakat WPtel: [address] [place], [place] [phone] WORK IN 02/17/2016 Patient Education: Patient Medication Summary Completed 02/17/2016 Visit Plan: Xrays to further evaluate Alvarez spect heel spur(s) Will call with results Has had injections in the past that were helpful Dr Barakat can do them or can refer to podiatry if warranted 02/14/2016 Appointment: Magda Toth [address] [place], [place] [id number] ACUTE ILLNESS 02/14/2016 Patient Education: Patient Medication Summary Completed 02/14/2016 Visit Plan: Increase Zoloft to 150mg cooper ly 01/31/2016 Appointment: Lita Barakat WPtel: [address] [place], [place] [phone] 01/26 confirmed `sl FOLLOW UP 01/31/2016 Patient Education: Patient Medication Summary Completed 01/31/2016 Visit Plan: Decrease citalopram to 20mg q AM for 1 week then stop Start zoloft 50mg q HS for 1 week then increase to 100mg q HS 12/30/2015 Appointment: Lita Barakat WPtel: [address] [place], [place] [phone] 12/28 confirmed~sl ACUTE ILLNESS 12/30/2015 Patient Education: Patient Medication Summary Completed 12/30/2015 Visit Plan: Check Neck US 12/16/2015 Appointment: Lita Barakat WPtel: [address] [place], [place] [phone] 12/14 lm ~sl 12/15 confirmed-sp FOLLOW UP 12/16/2015 Patient Education: Patient Medication Summary Completed 12/16/2015 Care Plan: US EXAM OF HEAD AND NECK LOIN C : 11226-1 Ordered 12/16/2015 Appointment: Stephanie Rios WPtel: [address] [place], [place] [phone] 12/09 confirmed-sp 12/12 lm ~sl Patient r eturn call and stated he just plain forgot ~sl FOLLOW UP 12/13/2015 Visit Plan: Had changing lesions of fore head and left mastoid area removed earlier today. Follow-up in one week Will proceed with soft tissue ultrasound of neck/ left cervical lymph node if no improvement antibiotics Clindamycin 300mg PO TID 12/06/2015 Appointment: Stephanie Rios WPtel: [address] [place], [place] [phone] ACUTE ILLNESS 12/06/2015 Patient Education: Patient Medication Summary Completed 12/06/2015 Referral: Lisbeth Darby WPtel: [facility] [address] [facility] 11/18/15 called luther at [facility] office and confirmed time and date of appointment with patient~sl Initiated 11/18/2015 Visit Plan: Referral to Dermatology for removal of facial skin lesions Cefdinir PO bid Topical Mupirocin to skin lesions bid 11/15/2015 Appointment: Stephanie Rios WPtel: [address] [place], [place] [phone] ACUTE ILLNESS 11/15/2015 Patient Education: Patient Medication Summary Completed 11/15/2015 Visit Plan: Continue current meds Accuch ecks daily Fwup with ophthamology as scheduled Will check lab in 3mos then fwup due to recent meds that will affect blood sugar 10/05/2015 Appointment: Lita Barakat WPtel: [address] [place], [place] [phone] 10/04/15 appt confirmed cn Annual Well Visit 08/2016 Patient Education: Patient Medication Summary Completed 10/05/2015 Visit Plan: Trajenta -1 sample box given Return visit in 6 weeks for fasting labs Notify for worsening symptoms such as Increased redness, swelling, pain or drainage of Rt. knee 07/22/2015 Appointment: Stephanie Rios WPtel: [address] [place], [place] [phone] 07/21 vm left cn FOLLOW UP 07/22/2015 Patient Education: Patient Medication Summary Completed 07/22/2015 Visit Plan: Continue to change dressing twice daily and apply Mupirocin Complete Doxycycline as directed. Follow-up for worsening symptoms, such as increased swelling, redness or pain. 07/01/2015 Appointment: Stephanie Rios WPtel: [facility] FOLLOW UP 07/01/2015 Patient Education: Patient Medication Summary Completed 07/01/2015 Visit Plan: Pressure dressing applied to draining wound left knee. Instructed to change dressing twice daily and continue Mupirocin topical Doxycycline PO bid x 10 days Wound culture obtained. Wound tissue sent to pathology Follow-up in 3 days 06/28/2015 Appointment: Stephanie [facility]el[facility] [facility] 06/28/2015 Patient Education: Patient Medication Summary Completed 06/28/2015 Visit Plan: Complete antibiotics Follow- up for increased tenderness, swelling or drainage. 06/09/2015 Appointment: Gabriel Stephanie M WPtel: [address] [place], [place] [phone] 06/08/15 lm FOLLOW UP 06/09/2015 Patient Education: Patient Medication Summary Completed 06/09/2015 Visit Plan: Apply pressure dressing toda y Continue antibiotics and topical Mupirocin Follow-up in 2 days Bursa drained from open area using pressure--serosanguinous drainage 06/07/2015 Appointment: Stephanie Rios WPtel: [facility] 06/04/15 confirmed with patient FOLLOW UP 0 06/07/2015 Patient Education: Patient Medication Summary Completed 06/07/2015 Visit Plan: Wound culture Lt. knee Apply mupirocin to open wound bid Clindamycin 600 mg PO bid x 10 days Follow-up on Sunday06/03/2015 Appointment: Gabriel Stephanie M WPtel: [address] [place], [place] [phone] ACUTE ILLNESS 06/03/2015 Patient Education: Patient Medication Summary Completed 06/03/2015 Visit Plan: Accuchecks daily Check CMP, HbA1C today Patient is noncompliant with meds and diet but patient says he is doing everything he is supposed to do Wants to try performomist instead of albuterol in SVN 06/01/2015 Appointment: Lita Barakat WPtel: [address] [place], [place] [phone] 05/28 appt confirmed cn FOLLOW UP 06/01/20 Patient Education: Patient Medication Summary Completed 06/01/2015 Visit Plan: Change Breo Ellipta to Advai r 500/50 1 p BID this next month Continue turdoza Use albuterol prn Check CMP, HbA1C today Accuchecks daily Cryotherapy as above 02/25/2015 Appointment: Lita Barakat WPtel: [address] [place], [place] [phone] 02/24 appt confirmed and explained needed payment he said ok FOLLOW UP 02/25/2015 Patient Education: Patient Medication Summary Completed 02/25/2015 Referral: Lopez Chacon [address] [id number] [place] Will put patient on cancellation list Initiated 12/08/2014 Appointment: Lita Barakat WPtel: [address] [place], [place] [phone] [place] [address] Follow Up 10/29/2014 Visit Plan: Finish prednisone Continue S VNs with albuterol QID See pulmonology and start Pulmonary rehab Once again discussed taking it easy this winter--that he is high risk for exacerbation 10/27/2014 Appointment: Lita Barakat WPtel: [address] [place] [address] FOLLOW UP 10/27/2014 Patient Education: Patient Medication Summary Completed 10/27/2014 Appointment: Lita Barakat WPtel: [address] [place] [address] FOLLOW UP 10/26/2014 Appointment: Stephanie Rios WPtel: [address] [place], [place] [phone] WORK IN 10/21/2014 Patient Education: Patient Medication Summary Completed 10/21/2014 Patient Education: Patient Medication Summary Completed 10/19/2014 Visit Plan: Continue oxygen and SVNS wit h duoneb Increase farxiga to 10mg daily Diflucan 100mg daily for 1week 10/06/2014 Appointment: Lita Barakat WPtel: [address] [place], [place] [phone] [facility] appt time to 2:45pm FOLLOW UP 2014 Patient Education: Patient Medication Summary Completed 10/06/2014 Visit Plan: Finish omnicef Continue Breo BID and Turdoza Use SVNS with duoneb at least TID for next 2weeks then go to prn 09/21/2014 Appointment: Lita Barakat WPtel: [address] [place], [place] [phone] Hospital Follow Up 09/21/2014 Patient Education: Patient Medication Summary Completed 09/21/2014 Patient Education: [facility] - Saving [employer] - Ventolin HFA - 18+ - Dynamic Portal ID Completed 09/21/2014 Appointment: Stephanie Rios WPtel: [address] [place], [place] [phone] Scheduled by 09/07 patient rescheduled to 09/08 with Stephanie. Hospital Follow Up 09/08/2014 Patient Education: Patient Medication Summary Completed 09/08/2014 Appointment: Stephanie Rios WPtel: [address] [place], [place] [phone] FOLLOW UP 09/02/2014 Patient Education: Patient Medication Summary Completed 09/02/2014 Patient Education: [employer] - Antibi otics, Analgesics 18+, Oral Contraceptives F 18+ Completed 09/02/2014 Appointment: Lita Barakat WPtel: [address] [place], [place] [phone] UA 08/27/2014 Patient Education: Patient [...] prn sleep 08/10/2014 Appointment: Lita Barakat WPtel: [address] [place], [place] [phone] Annual Well Visit 08/10/2014 Patient Education: Patient Medication Summary Completed 08/10/2014 Appointment: Lita Barakat WPtel: [address] [place], [place] [phone] LAB 08/05/2014 Patient Education: Patient Medication Summary Completed 08/05/2014 Visit Plan: ECHO results reviewed Contin ue Breo and Turdoza Pt starts PT this afternoon for back--has had one epidural with no help in pain 05/05/2014 Appointment: Lita Barakat WPtel: [address] [place] [address] FOLLOW UP 05/05/2014 Patient Education: Patient Medication Summary Completed 05/05/2014 Visit Plan: Continue Breo and Turdoza Camargo s heart tests scheduled next week Will see surgeon for removal of skin cancer to neck after done with cardiac workup 03/24/2014 Appointment: Lita Barakat WPtel: [address] [place] [address] FOLLOW UP 03/24/2014 Patient Education: Patient Medication Summary Completed 03/24/2014 Visit Plan: Proceed with cardiology eval uation as patient is has numerous risk factors for CAD Change Symbicort to Breo 1p BID and add Turdorza 1p BID Recheck in weeks Check 2-D ECHO and lexiscan 03/10/2014 Appointment: Lita Barakat WPtel: [address] [place] [address] FOLLOW UP 03/10/2014 Patient Education: Patient Medication Summary Completed 03/10/2014 Visit Plan: Shoulder injection as above Back brace to use when doing any lifting for stability 12/16/2013 Appointment: Lita Barakat WPtel: [address] [place] [address] ACUTE ILLNESS 12/16/2013 Patient Education: Patient Medication Summary Completed 12/16/2013 Visit Plan: Continue symbicort and Turdo za Salt water gargles Omnicef 300mg 2 po daily for 1wk Phenergan with codeine 10/09/2013 Appointment: Lita Barakat WPtel: [address] [place], [place] [phone] WORK IN 10/09/2013 Patient Education: Patient Medication Summary Completed 10/09/2013 Appointment: Ruchi Buchanan WPtel: [address] [place], [place] [phone] ACUTE ILLNESS 09/18/2013 Patient Education: Patient Medication Summary Completed 09/18/2013 Visit Plan: Check on repeat CXR Finish a bx Start Tradjenta to replace metformin 08/13/2013 Appointment: Lita Barakat WPtel: [address] [place], [place] [phone] 08/12 Hospital Follow Up 08/13/2013 Patient Education: Patient Medication Summary Completed 08/13/2013 Visit Plan: Admit to hospital 08/06/2013 Appointment: Stephanie Rios WPtel: [address] [place] [address] ACUTE ILLNESS 08/06/2013 Patient Education: Patient Medication Summary Completed 08/06/2013 Visit Plan: Continue current meds Contin ue accuchecks daily Proceed with stress test due to high risk for CAD 07/16/2013 Appointment: Lita Barakat WPtel: [address] [place] [address] FOLLOW UP 07/16/2013 Patient Education: Patient Medication Summary Completed 07/16/2013 Appointment: Lita Barakat WPtel: [address] [place] [address] LAB 06/25/2013 Patient Education: Patient Medication Summary Completed 06/25/2013 Visit Plan: prednisone and azithromycin. Doing CBC and mycoplasma blood draw. Will continue inhaler and albuterol breathing treatments. 04/09/2013 Appointment: Kimberly Villalba WPtel: [address] [place], [place] [phone] ACUTE ILLNESS 04/09/2013 Patient Education: Patient Medication Summary Completed 04/09/2013 Appointment: Lita Barakat WPtel: [address] [place], [place] [phone] ACUTE ILLNESS 02/11/2013 Patient Education: Patient Medication Summary Completed 02/11/2013 Appointment: Ruchi Buchanan WPtel: [address] [place] [address] ACUTE ILLNESS 01/31/2013 Patient Education: Patient Medication Summary Completed 01/31/2013 Visit Plan: Cefdinir and medrol dose pac k. Codeine/guiaf cough syrup. Has colonoscopy on Sunday. Pt. is to notify if fever occurs or symptoms worsen. Hydration and rest. 01/20/2013 Appointment: Kimberly Villalba WPtel: [address] [place] [address] ACUTE ILLNESS 01/20/2013 Patient Education: Patient Medication Summary Completed 01/20/2013 Visit Plan: Scopalamine patch and vestib ular exercises 12/19/2012 Appointment: Lita Barakat WPtel: [address] [place] [address] ACUTE ILLNESS 12/19/2012 Patient Education: Patient Medication Summary Completed 12/19/2012 Visit Plan: Dr. Swanson consult if no impr ovement in hearing. Pt. reports he will notify if no better in one week. Willam consult for skin lesion. 10/21/2012 Appointment: Kimberly Villalba WPtel: [address] [place] [address] ACUTE ILLNESS 10/21/2012 Patient Education: Patient Medication Summary Completed 10/21/2012 Appointment: Lita Barakat WPtel: [address] [place], [place] [phone] [place] LAB 09/19/2012 Patient Education: Patient Medication Summary Completed 09/19/2012 Visit Plan: Check fasting lab in AM--CMP , Lipids, HbA1C 09/18/2012 Appointment: Lita Barakat WPtel: [address] [place] [address] FOLLOW UP 09/18/2012 Patient Education: Patient Medication Summary Completed 09/18/2012 Appointment: Lita Barakat WPtel: [address] [place] [address] appt time scheduled sooner FOLLOW UP 09/05 Visit Plan: Doxycycline and Prednisone I ncrease SVN to QID Add back Symbicort 160/4.5 2 p BID 08/28/2012 Appointment: Lita Barakat WPtel: [address] [place], [place] [phone] [place] FOLLOW UP 08/28/2012 Patient Education: Patient Medication Summary Completed 08/28/2012 Appointment: Lita Barakat WPtel: [address] [place] [address] Annual Well Visit 07/10/2012 Patient Education: Patient Medication Summary Completed 07/10/2012 Visit Plan: Finish Z-pack Add Nasonex Ad d Meclizine Vestibular exercises Continue current meds and accuchecks Check lab and fwup in 4mos 05/09/2012 Appointment: Lita Barakat WPtel: [address] [place] [address] number no longer works FOLLOW UP 2 Patient Education: Patient Medication Summary Completed 05/09/2012 Appointment: Lita Barakat WPtel: [address] [place], [place] [phone] LAB 05/06/2012 Patient Education: Patient Medication Summary Completed 05/06/2012 Appointment: Lita Barakat WPtel: [address] [place], [place] [phone] [place] LAB 05/02/2012 Appointment: Lita Barakat WPtel: [address] [place], [place] [phone] [place] INJECTION 02/05/2012 Patient Education: Patient Medication Summary Completed 02/05/2012 Visit Plan: cefdinir. Will focus on rest and fluids. Pt. reports he is using breathing treatments as needed. Pt. will monitor for worsening symptoms or fever. 10/02/2011 Appointment: Kimberly Villalba WPtel: [address] [place], [place] [phone] ACUTE ILLNESS 10/02/2011 Patient Education: Patient Medication Summary Completed 10/02/2011 Appointment: Lita Barakat WPtel: [address] [place], [place] [phone] [place] INJECTION 08/10/2011 Patient Education: Patient Medication Summary Completed 08/10/2011 Visit Plan: Continue current meds Restar t Advair Restart exercise Flu shot given 08/07/2011 Appointment: Lita Barakat WPtel: [address] [place], [place] [phone] [place] FOLLOW UP 08/07/2011 Patient Education: Patient Medication Summary Completed 08/07/2011 Appointment: Lita Barakat WPtel: [address] [place], [place] [phone] [place] LAB 07/26/2011 Patient Education: Patient Medication Summary Completed 07/26/2011 Visit Plan: ALEKSANDER Carmen Continue Metformin but change to BID Add Lantus 25u sc q PM BS readings in 1wk 04/03/2011 Appointment: Lita Barakat WPtel: [address] [place], [place] [phone] ACUTE ILLNESS 04/03/2011 Patient Education: Patient Medication Summary Completed 04/03/2011 Appointment: Lita Barakat WPtel: [address] [place], [place] [phone] [place] INJECTION 01/19/2011 Patient Education: Patient Medication Summary Completed 01/19/2011 Appointment: Lita Barakat WPtel: [address] [place], [place] [phone] ACUTE ILLNESS 01/18/2011 Patient Education: Patient Medication Summary Completed 01/18/2011 Appointment: Lita Barakat WPtel: [address] [place], [place] [phone] [place] INJECTION 12/21/2010 Patient Education: Patient Medication Summary Completed 12/21/2010 Appointment: Lita Barakat WPtel: [address] [place], [place] [phone] [place] FOLLOW UP 12/19/2010 Patient Education: Patient Medication Summary Completed 12/19/2010 Appointment: Lita Barakat WPtel: [address] [place], [place] [phone] [place] LAB 12/07/2010 Patient Education: Patient Medication Summary Completed 12/07/2010 Appointment: Kimberly Villalba WPtel: [address] [place], [place] [phone] ACUTE ILLNESS 04/05/2010 Patient Education: Patient Medication Summary Completed 04/05/2010 Appointment: Lita Barakat WPtel: [address] [place] [phone] WORK IN 03/14/2010 Patient Education: Patient Medication Summary Completed 03/14/2010 Appointment: Lita Barakat WPtel: [address] [place], [place] [phone] [place] LAB 03/02/2010 Visit Plan: HbA1C in 3mos. Continue Accu checks BID alternating times. Switch lexapro to celexa 01/13/2010 Appointment: Lita Barakat WPtel: [address] [place] [address] FOLLOW UP 01/13/2010 Patient Education: Patient Medication Summary Completed 01/13/2010 Appointment: Lita Barakat WPtel: [address] [place], [place] [phone] [place] FOLLOW UP 01/11/2010 Visit Plan: Pt. will continue the Avalox and Doxycycline regimen as prescribed the previous day. He has been advised to continue inhalers, breathing treatments and oxygen therapy for at least the weekend. Moderate activity without strenuous exercise. The pt. will seek immediate re-eval if his symptoms worsen. 12/23/2009 Appointment: Kimberly Villalba WPtel: [address] [place], [place] [phone] [place] FOLLOW UP 12/23/2009 Patient Education: Patient [...] tomorrow morning. 12/22/2009 Appointment: Kimberly Villalba WPtel: [address] [place] [address] ACUTE ILLNESS 12/22/2009 Patient Education: Patient Medication Summary Completed 12/22/2009 Appointment: Kimberly Villalba WPtel: [address] [place] [address] FOLLOW UP 12/21/2009 Appointment: Lita Barakat WPtel: [address] [place] [address] INJECTION 12/16/2009 Patient Education: Patient Medication Summary Completed 12/16/2009 Appointment: Kimberly Villalba WPtel: [address] [place] [address] ACUTE ILLNESS 12/13/2009 Patient Education: Patient Medication Summary Completed 12/13/2009 Care Plan: X-RAY EXAM OF SHOULDER lt shoulder (pain ra diates across the shoulder) Hand carried orders to [facility] LOINC : 56464-4 Ordered 12/13/2009 Care Plan: X-RAY EXAM THORAC SPINE 2VWS Hand carried order LOINC : 41504-3 Ordered 12/13/2009 Care Plan: X-RAY EXAM RIBS UNI 2 VIEWS Posterior ribs of lt. side Pt. hand carries order to [facility] LOINC : 65630-0 Ordered 12/13/2009 Referral: José Miguel Swanson WPtel: [address] [address] [place] Referral Appointment Requested Referral: José Miguel Swanson WPtel: [address] [address] [place] Referral Appointment Requested Referral: Chandu Quarles WPtel: [address] Quarles for screening colonoscopy. Diane gerber notified that [facility] office will book appt with him Initiated Referral: Santosh Machado WPtel: #1 [facility] [place] [address] [address] [place] Referral Appointment Requested Referral: José Miguel Swanson WPtel: [address] [address] [place] Referral Initiated Referral: Lopez Chacon [facility] C&D [address] Referral Initiated Referral: Demetrius Benjamin WPtel: [address] [address] [place] Referral Appointment Requested Referral: José Miguel Swanson WPtel: [address] [address] [place] Referral Appointment Requested Referral: José Miguel Swanson WPtel: [address] [address] [place] Referral Initiated Instructions Comment . Saline nasal flushes prn. Tylenol/Motr in prn headache. Notify if persists/symptoms worsening. . MRI at [facility] Hydrocodone 5.325 1 po q 4-6 hours prn pain #40 NR and Cyclobenzaprine (ERx) Continue warm packs for pain RTC if no improvement . May take OTC Tylenol/Ibuprofen as dire cted XRay at [facility] of left shoulder Tramadol 50mg 1 po q 6 hours prn pain called to [facility]. Sedation warning given (no driving, etc) RTC if no improvement . Rx as above Wear O2 at all times as instructed by Dr Chacon Continue breathing treatments Supportive care otherwise reviewed Follow up ingird if not improving . Titrate requip to [...]
--- OUTSIDE RECORDS SUMMARY | 2020-03-28 15:54 | XMS REPORT | CCD ---
Author Author Leandro Barakat D.O. Organization [facility] Address [address] [place] [address] Phone Care Team Providers Care Student Advisor Name Role Phone Lita Barakat D.O., PP Unavailable CCM Unavailable Summary Purpose Interface Exchange Insurance Providers Payer name Policy type / Coverage type Covered green party ID Effective Begin Date Effective End Date [employer] MEDICARE Medicare Part B [id number] 2019 Unknown Family history Brother Diagnosis Age At Onset Cancer Unknown Father Diagnosis Age At Onset Heart disease Unknown Mother Diagnosis Age At Onset Heart disease Unknown Social History Social History Element Codes Description Effective Dates Tobacco history SNOMED CT: 0752916 Former smoker quit 15 years ago 08/07/2011 [...] R07.9 06/22/2016 Active 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: [...] unit/mL (3 mL) sub cutaneous pen RxNorm: 315324 INJECT 20 UNITS SQ QD 02/26/2020 03/21/2020 Active losartan 100 mg tablet RxNorm: 949807 1TD 02/03/2020 05/02/2020 Active Sinemet CR 50 mg-200 mg tablet,extended release RxNorm: 8343 41 1 Tablet(s) Oral three times a day 02/02/2020 07/31/2020 Active Generic For:*S INEMET CR 50/200 TABLET SA 07/08/2018 3:09:11 PM hydrocodone 10 mg-acetaminophen 325 mg tablet RxNorm: 381607 1 Tablet(s) Oral Q4H as needed for pain 01/29/2020 No Stop Date Active ipratropium 0.5 mg-albuterol 3 mg (2.5 mg base)/3 mL n ebulization soln RxNorm: 4843436 USE 1 VIAL IN NEBULIZER Q4H (THIS REPLACES ALBUTEROL S OLUTION) 01/08/2020 02/06/2020 Inactive prednisone 20 mg tablet RxNorm: 425600 1 Tablet(s) Oral two remy es a day 12/25/2019 01/01/2020 Inactive Levemir FlexTouch U-100 Insulin 100 unit/mL (3 mL) sub cutaneous pen RxNorm: 156436 10 Unit(s) Subcutaneous every night at bedtime 12/22/2019 N o Stop Date Active baclofen 10 mg tablet RxNorm: 700723 1 Tablet(s) Oral QPM for p ain/spasm 12/22/2019 01/21/2020 Inactive ipratropium 0.5 mg-albuterol 3 mg (2.5 mg base)/3 mL n ebulization soln RxNorm: 3338634 USE 1 VIAL IN NEBULIZER Q4H (THIS REPLACES ALBUTEROL S OLUTION) 11/27/2019 12/16/2019 Inactive hydrocodone 10 mg-acetaminophen 325 mg tablet RxNorm: 370304 1 Tablet(s) Oral Q4H as needed for pain 11/13/2019 01/28/2020 Inactive Seroquel 50 mg tablet RxNorm: 012096 1 Tablet(s) Oral QPM as ne eded for sleep 10/07/2019 12/21/2019 Inactive ropinirole 4 mg tablet RxNorm: 839720 3 TABLET(S) BY [facility] DAILY AT BEDTIME FOR RESTLESS LEGS 09/29/2019 12/27/2019 Inactive Generic For:REQU IP 4 MG TABLET 09/29/2019 7:52:42 AM N O T I C E Last quantity doesn't match original quantity ropinirole 4 mg tablet RxNorm: 352787 3 TABLET(S) BY [facility] DAILY AT BEDTIME FOR RESTLESS LEGS 09/26/2019 09/28/2019 Inactive Generic For:REQU IP 4 MG TABLET 09/26/2019 9:08:48 AM N O T I C E Last quantity doesn't match original quantity ipratropium 0.5 mg-albuterol 3 mg (2.5 mg base)/3 mL n ebulization soln RxNorm: 6913441 USE 1 VIAL IN NEBULIZER EVERY FOUR HOURS (THIS REPLACES ALBUTEROL SOLUTION) 09/26/2019 10/15/2019 Inactive Generic For:*DUO NEB 2.5-0.5 MG/3 ML SOLN 09/26/2019 9:08:53 AM hydrocodone 10 mg-acetaminophen 325 mg tablet RxNorm: 509753 1 Tablet(s) Oral Q4H as needed for pain 09/09/2019 09/09/2019 Inactive hydrocodone 10 mg-acetaminophen 325 mg tablet RxNorm: 117627 1 Tablet(s) Oral Q4H as needed for pain 09/09/2019 09/08/2019 Inactive ondansetron HCl 4 mg tablet RxNorm: 594499 1 Tablet(s) Oral QPM for nausea 08/12/2019 10/10/2019 Inactive ipratropium 0.5 mg-albuterol 3 mg (2.5 mg base)/3 mL n ebulization soln RxNorm: 0921145 1 Unit Dose INH Q4H 08/12/2019 09/25/2019 Inactive replaces albuterol solution Augmentin 875 mg-125 mg tablet RxNorm: 000525 1 Tablet(s) Oral two times a day 08/07/2019 08/17/2019 Inactive prednisone 20 mg tablet RxNorm: 057512 1 Tablet(s) Oral QD 08/05/2008/04/2019 Inactive prednisone 20 mg tablet RxNorm: 299987 1 Tablet(s) Oral QD 08/05/2008/06/2019 Inactive Levaquin 500 mg tablet RxNorm: 304075 1 Tablet(s) Oral QD Replaces azithromycin (z-pack) 07/31/2019 08/05/2019 Inactive Levaquin 500 mg tablet RxNorm: 682142 1 Tablet(s) Oral QD Replaces azithromycin (z-pack) 07/21/2019 07/26/2019 Inactive Levaquin 500 mg tablet RxNorm: 389955 1 Tablet(s) Oral QD Replaces azithromycin (z-pack) 07/21/2019 07/20/2019 Inactive Zithromax Z-Gui 250 mg tablet RxNorm: 680684 Tablet(s) Oral 019 07/22/2019 Inactive Zithromax Z-Gui 250 mg tablet RxNorm: 058941 Tablet(s) Oral 07/15/2019 Inactive Symbicort 160 mcg-4.5 mcg/actuation HFA aerosol inhaler RxNo rm: 3360519 2 Puff(s) Inhalation two times a day 07/14/2019 07/14/2019 Inactive Tessalon Perles 100 mg capsule RxNorm: 221995 1 Capsule(s) Oral Q8H as needed 07/14/2019 08/06/2019 Inactive Seroquel 50 mg tablet RxNorm: 626613 1 Tablet(s) Oral QPM as ne eded for sleep 07/01/2019 10/06/2019 Inactive ondansetron HCl 4 mg tablet RxNorm: 728661 1 Tablet(s) Oral QPM for nausea 06/24/2019 07/24/2019 Inactive Seroquel 25 mg tablet RxNorm: 804638 1 Tablet(s) Oral every nig ht at bedtime 06/19/2019 06/18/2019 Inactive Seroquel 25 mg tablet RxNorm: 741827 1 Tablet(s) Oral every nig ht at bedtime 06/19/2019 06/30/2019 Inactive trazodone 150 mg tablet RxNorm: 185440 1/2 Tablet(s) PO QHS as needed for sleep 06/11/2019 06/17/2019 Inactive replaces PA on doxep in trazodone 150 mg tablet RxNorm: 472361 1/2 Tablet(s) PO QHS as needed for sleep 05/12/2019 06/11/2019 Inactive replaces PA on doxep in Vitamin D3 5,000 unit tablet RxNorm: 242165 1 Tablet(s) PO QD 05/09 No Stop Date Active magnesium oxide 400 mg (241.3 mg magnesium) tablet RxNorm: 1 99633 1 Tablet(s) PO QHS 05/09/2019 No Stop Date Active cyanocobalamin (vit B-12) 1,000 mcg/mL injection solution Rx Norm: 429541 1 injection weekly for 4 weeks 1 Milliliter(s) Inj 05/09/2019 12/21/2019 Inactive ferrous sulfate 325 mg (65 mg iron) tablet RxNorm: 177828 1 Tab let(s) PO QD 05/09/2019 12/21/2019 Inactive ropinirole 4 mg tablet RxNorm: 763600 3 TABLET(S) BY [facility] DAILY AT BEDTIME FOR RESTLESS LEGS 03/26/2019 06/23/2019 Inactive Generic For:REQU IP 4 MG TABLET 03/26/2019 11:23:36 AM N O T I C E Last quantity doesn't match original quantity pantoprazole 40 mg tablet,delayed release RxNorm: 039942 Tablet(s) TAKE 1 TABLET BY MOUTH DAILY FOR STOMACH 03/24/2019 06/21/2019 Inactive Gener ic For:PROTONIX 40MG TAB EC 01/03/2019 1:23:44 PM hydroxyzine HCl 10 mg tablet RxNorm: 092210 1 Tablet(s) PO BID as needed 03/24/2019 04/06/2019 Inactive ipratropium-albuterol 0.5 mg-3 mg(2.5 mg base)/3 mL ne bulization soln RxNorm: 9546264 1 Unit Dose INH Q4H 03/21/2019 No Stop Date Active replaces albuterol solution meclizine 12.5 mg tablet RxNorm: 898406 1 Tablet(s) PO BID as neede d 03/21/2019 12/21/2019 Inactive losartan 100 mg tablet RxNorm: 490588 1 Tablet(s) PO QD replace s lisinopril 03/13/2019 09/08/2019 Inactive fluconazole 100 mg tablet RxNorm: 047823 1 Tablet(s) PO QD 03/13/20 19 03/19/2019 Inactive nystatin 100,000 unit/mL oral suspension RxNorm: 659081 5 Unit( s) PO QID 03/13/2019 03/26/2019 Inactive tramadol 50 mg tablet RxNorm: 308590 1 Tablet(s) PO TID as needed for pain TAKE 2 TABS OF EXTRA STRENGTH TYLENOL WITH EACH DOSE 03/10/2019 04/06/2019 Inactive Generic For:*ULTRAM 50 MG TABLET 01/15/2019 4:55:26 PM Sinemet CR 50 mg-200 mg tablet,extended release RxNorm: 8343 41 1 Tablet(s) PO TID 02/26/2019 08/24/2019 Inactive Generic For:*SIN EMET CR 50/200 TABLET SA 07/08/2018 3:09:11 PM trazodone 150 mg tablet RxNorm: 763687 1/2 Tablet(s) PO QHS as needed for sleep 02/13/2019 02/12/2019 Inactive trazodone 150 mg tablet RxNorm: 428209 1/2 Tablet(s) PO QHS as needed for sleep 02/13/2019 02/25/2019 Inactive replaces PA on doxep in doxepin 10 mg capsule RxNorm: 0486299 1-2 Capsule(s) PO QHS prn sleep 02/13/2019 02/13/2019 Inactive Novolog U-100 Insulin aspart 100 unit/mL subcutaneous soluti on RxNorm: 148713 INJECT 10 UNIT(S) SUBCUTANEOUSLY BEFORE MEALS 01/31/2019 05/30/2019 In active 01/31/2019 1:39:10 PM ipratropium-albuterol 0.5 mg-3 mg(2.5 mg base)/3 mL ne bulization soln RxNorm: 7236855 1 Unit Dose INH Q4H 01/17/2019 03/20/2019 Inactive replaces albuterol solution tramadol 50 mg tablet RxNorm: 575958 1 Tablet(s) PO TID as needed for pain TAKE 2 TABS OF EXTRA STRENGTH TYLENOL WITH EACH DOSE 01/15/2019 02/03/2019 Inactive Generic For:*ULTRAM 50 MG TABLET 01/15/2019 4:55:26 PM Sinemet CR 50 mg-200 mg tablet,extended release RxNorm: 8343 41 1 Tablet(s) PO BID 01/03/2019 02/25/2019 Inactive Generic For:*SIN EMET CR 50/200 TABLET SA 07/08/2018 3:09:11 PM losartan 100 mg tablet RxNorm: 984922 1 Tablet(s) PO QD replace s lisinopril 01/03/2019 03/12/2019 Inactive Symbicort 160 mcg-4.5 mcg/actuation HFA aerosol inhaler RxNo rm: 0158497 2 Puff(s) INH BID 01/03/2019 01/02/2019 Inactive pantoprazole 40 mg tablet,delayed release RxNorm: 734088 TAKE 1 TABLET BY MOUTH DAILY FOR STOMACH 01/03/2019 03/23/2019 Inactive Generic For:[place] OTONIX 40MG TAB EC 01/03/2019 1:23:44 PM nystatin 100,000 unit/mL oral suspension RxNorm: 437744 Unit(s) 5 Unit(s) PO QID swish and spit 01/02/2019 11/11/2019 Inactive Incruse Ellipta 62.5 mcg/actuation powder for inhalation RxN orm: 0687415 1 Capsule(s) INH QD 12/25/2018 12/21/2019 Inactive Tessalon Perles 100 mg capsule RxNorm: 710934 1 Capsule(s) PO T ID for cough 12/25/2018 02/25/2019 Inactive Medrol (Gui) 4 mg tablets in a dose pack RxNorm: 116762 Tablet(s) PO Use as directed 12/23/2018 01/02/2019 Inactive Levemir FlexTouch U-100 Insulin 100 unit/mL (3 mL) sub cutaneous pen RxNorm: 239512 20 Unit(s) SQ QD with pen needles 12/13/2018 05/11/2019 Inactiv e prednisone 20 mg tablet RxNorm: 977927 1 Tablet(s) PO QD 12/12/2018 0 12/11/2018 Inactive prednisone 20 mg tablet RxNorm: 534453 1 Tablet(s) PO QD 12/12/2018 0 12/16/2018 Inactive promethazine 6.25 mg-codeine 10 mg/5 mL syrup RxNorm: 133159 5 Milliliter(s) PO QHS as needed for cough 12/09/2018 12/18/2018 Inactive cefdinir 300 mg capsule RxNorm: 810672 1 Capsule(s) PO BID 12/10/19 19 12/18/2018 Inactive fluconazole 100 mg tablet RxNorm: 762019 1 Tablet(s) PO QD 12/06/19 19 12/08/2018 Inactive ropinirole 4 mg tablet RxNorm: 609570 3 Tablet(s) PO QHS for re stless legs 12/04/2018 03/03/2019 Inactive Novolog U-100 Insulin aspart 100 unit/mL subcutaneous soluti on RxNorm: 770052 INJECT 10 UNIT(S) SUBCUTANEOUSLY BEFORE MEALS 12/04/2018 01/30/2019 In active 12/04/2018 10:02:42 AM nystatin 100,000 unit/mL oral suspension RxNorm: 680167 5 Unit(s) PO QID swish and spit 11/25/2018 12/18/2018 Inactive ropinirole 4 mg tablet RxNorm: 417741 3 Tablet(s) PO QHS for re stless legs 11/04/2018 12/03/2018 Inactive prednisone 20 mg tablet RxNorm: 864384 1 Tablet(s) PO BID 10/23/2018 10/29/2018 Inactive ropinirole 4 mg tablet RxNorm: 410941 3 Tablet(s) PO QHS for re stless legs 10/14/2018 11/04/2018 Inactive pantoprazole 40 mg tablet,delayed release RxNorm: 762358 1 Tablet(s) PO QD forstomach 10/10/2018 01/02/2019 Inactive Symbicort 160 mcg-4.5 mcg/actuation HFA aerosol inhaler RxNo rm: 7046420 2 Puff(s) INH BID 10/10/2018 01/03/2019 Inactive Novolog U-100 Insulin aspart 100 unit/mL subcutaneous soluti on RxNorm: 505300 INJECT 10 UNIT(S) SUBCUTANEOUSLY BEFORE MEALS 10/10/2018 12/03/2018 In active 10/10/2018 11:30:01 AM Sinemet CR 50 mg-200 mg tablet,extended release RxNorm: 8343 41 1 Tablet(s) PO BID 09/26/2018 01/03/2019 Inactive Generic For:*SIN EMET CR 50/200 TABLET SA 07/08/2018 3:09:11 PM ropinirole 4 mg tablet RxNorm: 007529 2 Tablet(s) PO QHS for re stless legs 09/18/2018 10/13/2018 Inactive metformin ER 1,000 mg tablet,extended release 24hr RxNorm: 1 160166 1 Tablet(s) PO BID 09/09/2018 12/18/2018 Inactive ropinirole 4 mg tablet RxNorm: 407800 2 Tablet(s) PO QHS for re stless legs 08/21/2018 09/17/2018 Inactive doxycycline hyclate 100 mg capsule RxNorm: 7486994 1 Capsule(s) PO BID 08/07/2018 08/13/2018 Inactive ropinirole 4 mg tablet RxNorm: 681090 1 Tablet(s) PO QHS replac es 1mg dose 08/07/2018 08/20/2018 Inactive ropinirole 2 mg tablet RxNorm: 111891 TAKE 3 TABLETS BY MOUTH DAILY AT BEDTIME DO NOT EXCEED 3 TABLETS PER DAY!!!! 07/31/2018 08/06/2018 Inactive Generic For:REQUIP 2 MG TABLET 07/30/2018 3:50:28 PM Symbicort 160 mcg-4.5 mcg/actuation HFA aerosol inhaler RxNo rm: 8787679 2 Puff(s) INH BID 07/12/2018 10/09/2018 Inactive Sinemet CR 50 mg-200 mg tablet,extended release RxNorm: 8343 41 TAKE 1 TABLET BY MOUTH TWICE DAILY 07/08/2018 09/26/2018 Inactive Generic For:*S INEMET CR 50/200 TABLET SA 07/08/2018 3:09:11 PM losartan 100 mg tablet RxNorm: 025407 1 Tablet(s) PO QD replace s lisinopril 06/17/2018 12/13/2018 Inactive Novolog U-100 Insulin aspart 100 unit/mL subcutaneous soluti on RxNorm: 816094 10 Unit(s) SQ AC 06/17/2018 10/09/2018 Inactive albuterol sulfate 2.5 mg/3 mL (0.083 %) solution for n ebulization RxNorm: 066715 Milliliter(s) INH USE 1 VIAL IN NEBULIZE R EVERY FOUR HOURS NEEDED FOR WHEEZING OR SHORTNESS OF BREATH 06/13/2018 01/16/2019 Inactive Generic For:*PROVENTIL 0.83 MG/ML SOLUTN 06/13/2013 2:04:46 PM ropinirole 2 mg tablet RxNorm: 906952 3 Tablet(s) PO QH S DO NOT EXCEED 6MG (3 TABLETS) PER DAY!!!! 06/13/2018 07/31/2018 Inactive atorvastatin 40 mg tablet RxNorm: 160374 Tablet(s) TAKE 1 TABLET BY MOUTH EVERY DAY 05/13/2018 12/18/2018 Inactive Generic For:LIPI TOR 40MG TAB 05/01/2018 8:37:31 AM Sinemet CR 50 mg-200 mg tablet,extended release RxNorm: 8343 41 1 Tablet(s) PO BID 05/08/2018 07/06/2018 Inactive Lidocaine Viscous 2 % mucosal solution RxNorm: 0630612 5 Milliliter(s) PO QID as needed 05/02/2018 08/06/2018 Inactive Diflucan 100 mg tablet RxNorm: 816859 1 Tablet(s) PO QD 05/02/2018 Inactive atorvastatin 40 mg tablet RxNorm: 448309 TAKE 1 TABLET BY MOUTH EVERY DAY 05/01/2018 05/13/2018 Inactive Generic For:LIPITOR 40MG TAB 05/01/2018 8:37:31 AM nystatin 100,000 unit/mL oral suspension RxNorm: 835776 5 Unit(s) PO QID (before meals and at bedtime) 04/24/2018 04/30/2018 Inactive Ventolin HFA 90 mcg/actuation aerosol inhaler RxNorm: 874770 2 Puff(s) INH Q4H as needed one inhaler for home and one inhaler for car 04/23/201812/18 Inactive Mucinex 600 mg tablet, extended release RxNorm: 073723 1 Tablet(s) PO BID for congestion 04/22/2018 05/21/2018 Inactive prednisone 10 mg tablet RxNorm: 058365 Tablet(s) PO as directeds 08/06/2018 Inactive ropinirole 2 mg tablet RxNorm: 800534 3 Tablet(s) PO QH S DO NOT EXCEED 6MG (3 TABLETS) PER DAY!!!! 04/09/2018 05/08/2018 Inactive gabapentin 300 mg capsule RxNorm: 418228 1-2 Capsule(s) PO QHS 02/201804/08/2018 Inactive ropinirole 2 mg tablet RxNorm: 944841 1 Tablet(s) PO QHS 03/28/2018 0 04/08/2018 Inactive gabapentin 300 mg capsule RxNorm: 117537 1-2 Capsule(s) PO QHS 02/2303/29/2018 Inactive gabapentin 300 mg capsule RxNorm: 230526 1-2 Capsule(s) PO QHS 02/2203/13/2018 Inactive gabapentin 300 mg capsule RxNorm: 867241 2 Capsule(s) PO QHS 201703/11/2018 Inactive ropinirole 2 mg tablet RxNorm: 411854 1 Tablet(s) PO QHS 02/28/2018 0 03/28/2018 Inactive ropinirole 2 mg tablet RxNorm: 439045 1 Tablet(s) PO QHS 02/28/2018 0 02/27/2018 Inactive gabapentin 300 mg capsule RxNorm: 874061 1 Capsule(s) PO QHS 201702/27/2018 Inactive pantoprazole 40 mg tablet,delayed release RxNorm: 844124 1 Tablet(s) PO QD forstomach 01/23/2018 05/22/2018 Inactive Voltaren 1 % topical gel RxNorm: 096366 1 Gram(s) TOP QID to ri ght knee 01/23/2018 02/04/2018 Inactive metformin ER 500 mg tablet,extended release 24hr RxNorm: 860 975 2 Tablet(s) PO BID 01/09/2018 12/08/2018 Inactive Requip 1 mg tablet RxNorm: 883818 1 Tablet(s) PO QHS 01/09/201802/27 Inactive prednisone 20 mg tablet RxNorm: 239062 1 Tablet(s) PO T ID for 3 days then 1 po BID for 3 days then one daily for 3 days 01/02/2018 02/03/2018 Inactiv e Levaquin 500 mg tablet RxNorm: 077561 1 Tablet(s) PO QD 01/02/2018 Inactive ProAir HFA 90 mcg/actuation aerosol inhaler RxNorm: 674860 2 Puff(s) INH Q4H as needed 12/28/2017 No Stop Date Active please switch to ventolin if insurance doesn't cover montelukast 10 mg tablet RxNorm: 005846 1 Tablet(s) PO QD 12/28/2017 02/03/2018 Inactive Levaquin 500 mg tablet RxNorm: 667493 1 Tablet(s) PO QD 12/21/2017 Inactive ProAir HFA 90 mcg/actuation aerosol inhaler RxNorm: 841235 2 Puff(s) INH Q4H as needed 12/21/2017 12/27/2017 Inactive please switch to ventolin if insurance doesn't cover doxycycline hyclate 100 mg tablet RxNorm: 496656 1 Tablet(s) PO BID 12/17/2017 12/26/2017 Inactive Levemir FlexTouch U-100 Insulin 100 unit/mL (3 mL) sub cutaneous pen RxNorm: 866140 20 Unit(s) SQ QD with pen needles---Due for labs 12/11/2017 02/03/2018 Inactive Requip 1 mg tablet RxNorm: 828430 1 Tablet(s) PO QHS 12/10/201712/09 Inactive Requip 1 mg tablet RxNorm: 421728 1 Tablet(s) PO QHS 12/10/201701/09 Inactive albuterol sulfate 2.5 mg/3 mL (0.083 %) solution for n ebulization RxNorm: 908672 Milliliter(s) INH USE 1 VIAL IN NEBULIZE R EVERY FOUR HOURS NEEDED FOR WHEEZING OR SHORTNESS OF BREATH 12/05/2017 06/13/2018 Inactive Generic For:*PROVENTIL 0.83 MG/ML SOLUTN 06/13/2013 2:04:46 PM Tudorza Pressair 400 mcg/actuation breath activated RxNorm: 9127464 1 Puff(s) INH BID 12/03/2017 12/10/2017 Inactive Levemir FlexTouch U-100 Insulin 100 unit/mL (3 mL) sub cutaneous pen RxNorm: 967363 10 Unit(s) SQ QD with pen needles---Due for labs 11/16/2017 12/10/2017 Inactive Zofran ODT 4 mg disintegrating tablet RxNorm: 386911 1 Tablet(s) PO Q4H as needed for nausea 10/17/2017 02/04/2018 Inactive Efudex 5 % topical cream RxNorm: 876953 Application TOP QD prn to precancer skin lesions 10/17/2017 02/03/2018 Inactive Sinemet CR 50 mg-200 mg tablet,extended release RxNorm: 8343 41 1 Tablet(s) PO BID 10/17/2017 02/05/2018 Inactive Sinemet CR 50 mg-200 mg tablet,extended release RxNorm: 8343 41 1 Tablet(s) PO QHS 09/25/2017 10/16/2017 Inactive gabapentin 600 mg tablet RxNorm: 582801 1 Tablet(s) PO BID 08/15/20 17 08/14/2017 Inactive gabapentin 600 mg tablet RxNorm: 443225 1 Tablet(s) PO BID 08/15/20 17 12/10/2017 Inactive Novolog U-100 Insulin aspart 100 unit/mL subcutaneous soluti on RxNorm: 982700 10 Unit(s) SQ AC 08/15/2017 02/03/2018 Inactive Novolog 100 unit/mL subcutaneous solution RxNorm: 020514 10 Uni t(s) SQ AC 08/13/2017 08/14/2017 Inactive prednisone 20 mg tablet RxNorm: 875360 2 Tablet(s) PO QD 08/02/2017 1 10/04/2016 Inactive gabapentin 600 mg tablet RxNorm: 471915 Tablet(s) 1 Tab let(s) PO QHS replaces 300mg dose 07/09/2017 08/14/2017 Inactive Breo Ellipta 100 mcg-25 mcg/dose powder for inhalation RxNor m: 5727610 1 Unit Dose INH QD 07/02/2017 08/30/2017 Inactive Tudorza Pressair 400 mcg/actuation breath activated RxNorm: 9430726 1 Puff(s) INH BID 06/18/2017 12/02/2017 Inactive gabapentin 600 mg tablet RxNorm: 602295 1 Tablet(s) PO QHS repl aces 300mg dose 06/14/2017 07/08/2017 Inactive metformin ER 1,000 mg tablet,extended release 24hr RxNorm: 1 331118 1 Tablet(s) PO BID 05/29/2017 01/08/2018 Inactive cyclobenzaprine 5 mg tablet RxNorm: 751212 1 Tablet(s) PO TID 05/2906/07/2017 Inactive metformin ER 1,000 mg tablet,extended release 24hr RxNorm: 8 90280 1 Tablet(s) PO BID 05/25/2017 05/28/2017 Inactive metformin ER 1,000 mg tablet,extended release 24hr RxNorm: 8 20309 1 Tablet(s) PO BID 05/22/2017 05/24/2017 Inactive Amaryl 2 mg tablet RxNorm: 406575 1 Tablet(s) PO BID 05/01/201702/03 Inactive glimepiride 2 mg tablet RxNorm: 690369 1 Tablet(s) PO BID 04/19/2017 02/03/2018 Inactive ferrous sulfate 325 mg (65 mg iron) tablet RxNorm: 974801 1 Tab let(s) PO QHS 04/17/2017 02/03/2018 Inactive Requip 4 mg tablet RxNorm: 792848 1 Tablet(s) PO BID 04/12/201704/11 Inactive Requip 4 mg tablet RxNorm: 003994 1 Tablet(s) PO BID 04/12/201704/15 Inactive Levemir FlexTouch 100 unit/mL (3 mL) subcutaneous insulin pe n RxNorm: 715826 10 Unit(s) SQ QD with pen needles---Due for labs 04/05/2017 11/15/2017 In active Silenor 3 mg tablet RxNorm: 259951 1 Tablet(s) PO QHS 04/05/201709/25 Inactive ropinirole 4 mg tablet RxNorm: 574661 1 Tablet(s) PO QHS 03/29/2017 0 04/01/2017 Inactive ropinirole 4 mg tablet RxNorm: 754741 1 Tablet(s) PO QHS 03/29/2017 0 03/28/2017 Inactive Requip 4 mg tablet RxNorm: 585045 1 Tablet(s) PO QHS 03/28/201704/01 Inactive gabapentin 600 mg tablet RxNorm: 383025 1 Tablet(s) PO QHS repl aces 300mg dose 03/28/2017 04/15/2017 Inactive Requip 4 mg tablet RxNorm: 019627 1 Tablet(s) PO QHS 03/23/201703/27 Inactive gabapentin 600 mg tablet RxNorm: 034823 1 Tablet(s) PO QHS 03/13/20 17 03/12/2017 Inactive gabapentin 600 mg tablet RxNorm: 810791 1 Tablet(s) PO QHS 03/13/20 17 03/27/2017 Inactive gabapentin 300 mg capsule RxNorm: 683637 1 Capsule(s) PO QPM 201603/12/2017 Inactive Generic For:NEURONTIN 300 MG CAPSULE 01/22/2017 10:10:39 AM losartan 100 mg tablet RxNorm: 291386 1 Tablet(s) PO QD replace s lisinopril 02/21/2017 06/17/2018 Inactive gabapentin 300 mg capsule RxNorm: 498587 TAKE 1 CAPSULE BY MOUT H EVERY EVENING 01/22/2017 02/21/2017 Inactive Generic For:NEURONTI N 300 MG CAPSULE 01/22/2017 10:10:39 AM gabapentin 300 mg capsule RxNorm: 218572 1 Capsule(s) PO QPM 201601/21/2017 Inactive Requip 4 mg tablet RxNorm: 443548 1 Tablet(s) PO QHS 12/21/201603/20 Inactive Effient 10 mg tablet RxNorm: 376065 1 Tablet(s) PO QD 12/12/201612/23 Inactive gabapentin 300 mg capsule RxNorm: 890760 1 Capsule(s) PO QPM 201612/03/2016 Inactive gabapentin 300 mg capsule RxNorm: 889982 1 Capsule(s) PO QPM 201612/13/2016 Inactive Requip 4 mg tablet RxNorm: 553501 1 Tablet(s) PO QHS 11/28/201612/21 Inactive atorvastatin 40 mg tablet RxNorm: 632296 Tablet(s) 1 Tablet(s) PO Q D 11/22/2016 08/18/2017 Inactive atorvastatin 40 mg tablet RxNorm: 061254 1 Tablet(s) PO QD 11/23/1911/21/2016 Inactive ropinirole 1 mg tablet RxNorm: 822221 2.5 Tablet(s) PO QPM for legs/sleep 11/14/2016 11/27/2016 Inactive nystatin 100,000 unit/mL oral suspension RxNorm: 276238 5 Unit(s) PO QID swish and spit 10/31/2016 02/03/2018 Inactive fluconazole 100 mg tablet RxNorm: 239047 1 Tablet(s) PO QD 10/31/19 17 11/09/2016 Inactive doxycycline hyclate 100 mg capsule RxNorm: 6572420 1 Capsule(s) PO BID 10/03/2016 10/12/2016 Inactive Levemir FlexTouch 100 unit/mL (3 mL) subcutaneous insulin pe n RxNorm: 788127 10 Unit(s) SQ QD with pen needles 09/18/2016 04/04/2017 Inactive amitriptyline 25 mg tablet RxNorm: 730616 1 Tablet(s) P O QHS as needed for sleep 09/04/2016 10/17/2016 Inactive ropinirole 1 mg tablet RxNorm: 899472 1.5 Tablet(s) PO QPM for legs/sleep 09/04/2016 11/13/2016 Inactive amitriptyline 25 mg tablet RxNorm: 465354 1 Tablet(s) P O QHS as needed for sleep 08/22/2016 09/03/2016 Inactive clopidogrel 75 mg tablet RxNorm: 833714 1 Tablet(s) PO QD 08/10/2016 10/17/2016 Inactive Zoloft 100 mg tablet RxNorm: 304186 2 Tablet(s) PO QHS 08/10/2016 Inactive atorvastatin 40 mg tablet RxNorm: 011665 1 Tablet(s) PO QD 08/10/20 16 10/17/2016 Inactive ropinirole 1 mg tablet RxNorm: 760022 1 Tablet(s) PO QPM for le gs/sleep 08/10/2016 09/03/2016 Inactive losartan 100 mg tablet RxNorm: 654308 1 Tablet(s) PO QD replace s lisinopril 07/20/2016 02/21/2017 Inactive Zofran 4 mg tablet RxNorm: 489952 1 Tablet(s) PO Q4H as needed for nausea 07/06/2016 10/17/2016 Inactive Flagyl 500 mg tablet RxNorm: 613668 1 Tablet(s) PO TID 07/06/2016 Inactive Plavix 75 mg tablet RxNorm: 886865 1 Tablet(s) PO QD 06/08/201607/05 Inactive isosorbide mononitrate ER 30 mg tablet,extended release 24 h r RxNorm: 582178 1 Tablet(s) PO QAM 06/08/2016 08/09/2016 Inactive atorvastatin 40 mg tablet RxNorm: 119171 1 Tablet(s) PO QD 06/08/20 16 08/09/2016 Inactive hydrochlorothiazide 12.5 mg tablet RxNorm: 212308 1 Tablet(s) PO QA M 06/08/2016 07/05/2016 Inactive metformin ER 1,000 mg tablet,extended release 24hr RxNorm: 8 93982 1 Tablet(s) PO BID 06/08/2016 09/05/2016 Inactive metoprolol tartrate 25 mg tablet RxNorm: 260390 1/2 Tablet(s) PO BI D 06/08/2016 08/09/2016 Inactive Zoloft 100 mg tablet RxNorm: 243860 2 Tablet(s) PO QHS 04/03/2016 Inactive metformin ER 1,000 mg tablet,extended release 24hr RxNorm: 8 15135 Tablet(s) 1 Tablet(s) PO QD 03/30/2016 12/18/2018 Inactive Levemir FlexTouch 100 unit/mL (3 mL) subcutaneous insulin pe n RxNorm: 061013 10 Unit(s) SQ QD 03/09/2016 03/08/2016 Inactive Levemir FlexTouch 100 unit/mL (3 mL) subcutaneous insulin pe n RxNorm: 504131 10 Unit(s) SQ QD with pen needles 03/09/2016 03/20/2016 Inactive Mobic 15 mg tablet RxNorm: 177058 1 Tablet(s) PO QD for foot pain 0 02/17/2016 03/17/2016 Inactive Zoloft 100 mg tablet RxNorm: 062794 1 1/2 Tablet(s) PO QHS 01/31/20 16 04/02/2016 Inactive omeprazole 20 mg capsule,delayed release RxNorm: 210842 TAKE 2 CAPSULES BY MOUTH EVERY DAY 01/12/2016 08/09/2016 Inactive Generic For:*CHERYL LOSEC [address] 01/12/2016 8:58:34 AM Zoloft 100 mg tablet RxNorm: 483196 1/2 Tablet(s) PO QH S for 1 week then 1 tablet po q HS 12/30/2015 01/27/2016 Inactive Ventolin HFA 90 mcg/actuation aerosol inhaler RxNorm: 266220 2 Puff(s) INH QID as needed for shortness of breath 12/30/2015 02/03/2018 Inactive [AttnRPh: Saving apply/adjudicate RxGRP:SG20 RxBIN:[id number] RxPCN: ID#:[id number]] metformin ER 1,000 mg tablet,extended release 24hr RxNorm: 8 73639 1 Tablet(s) PO QD 12/20/2015 03/18/2016 Inactive clindamycin 300 mg capsule RxNorm: 521957 1 Capsule(s) PO TID 12/0512/15/2015 Inactive mupirocin 2 % topical cream RxNorm: 081615 TOP to facial lesion s twice daily 11/15/2015 12/15/2015 Inactive cefdinir 300 mg capsule RxNorm: 776434 1 Capsule(s) PO BID 11/15/19 16 11/24/2015 Inactive Medrol (Gui) 4 mg tablets in a dose pack RxNorm: 420964 Tablet(s) PO as directed 10/11/2015 12/15/2015 Inactive albuterol sulfate 2.5 mg/3 mL (0.083 %) solution for n ebulization RxNorm: 119556 INH USE 1 VIAL IN NEBULIZER EVERY FOUR H OURS NEEDED FOR WHEEZING OR SHORTNESS OF BREATH 10/05/2015 10/04/2015 Inactive Generic For:*PRO VENTIL 0.83 MG/ML SOLUTN 06/13/2013 2:04:46 PM doxycycline hyclate 100 mg capsule RxNorm: 0740997 1 Capsule(s) PO BID 10/05/2015 10/14/2015 Inactive albuterol sulfate 2.5 mg/3 mL (0.083 %) solution for n ebulization RxNorm: 062636 Milliliter(s) INH USE 1 VIAL IN NEBULIZE R EVERY FOUR HOURS NEEDED FOR WHEEZING OR SHORTNESS OF BREATH Dx: J44.9 10/05/2015 12/05/2017 Inacti ve Generic For:*PROVENTIL 0.83 MG/ML SOLUTN 06/13/2013 2:04:46 PM albuterol sulfate 2.5 mg/3 mL (0.083 %) solution for n ebulization RxNorm: 270811 3 Milliliter(s) INH USE 1 VIAL IN NEBULI ZER EVERY FOUR HOURS NEEDED FOR WHEEZING OR SHORTNESS OF BREATH 09/06/2015 10/04/2015 Inactive Generic For:*PROVENTIL 0.83 MG/ML SOLUTN 06/13/2013 2:04:46 PM Tradjenta 5 mg tablet RxNorm: 4302501 2 Tablet(s) PO QD 07/22/2015 Inactive albuterol sulfate 2.5 mg/3 mL (0.083 %) solution for n ebulization RxNorm: 516935 3 Milliliter(s) INH USE 1 VIAL IN NEBULI ZER EVERY FOUR HOURS NEEDED FOR WHEEZING OR SHORTNESS OF BREATH 06/29/2015 09/05/2015 Inactive Generic For:*PROVENTIL 0.83 MG/ML SOLUTN 06/13/2013 2:04:46 PM albuterol sulfate 2.5 mg/3 mL (0.083 %) solution for n ebulization RxNorm: 854020 Milliliter(s) INH USE 1 VIAL IN NEBULIZE R EVERY FOUR HOURS NEEDED FOR WHEEZING OR SHORTNESS OF BREATH 06/29/2015 12/04/2017 Inactive Generic For:*PROVENTIL 0.83 MG/ML SOLUTN 06/13/2013 2:04:46 PM doxycycline hyclate 100 mg tablet RxNorm: 352761 1 Tablet(s) PO BID 06/28/2015 07/07/2015 Inactive losartan 100 mg tablet RxNorm: 352848 1 Tablet(s) PO QD -replac es lisinopril 06/14/2015 09/05/2015 Inactive metformin ER 1,000 mg tablet,extended release 24hr RxNorm: 8 86009 1 Tablet(s) PO QD 06/14/2015 09/11/2015 Inactive losartan 100 mg tablet RxNorm: 521372 1 Tablet(s) PO QD -replac es lisinopril 06/14/2015 12/10/2015 Inactive Zocor 20 mg tablet RxNorm: 236303 Tablet(s) Tablet(s) 1 Tablet(s) PO QD -needs lipids labs 06/14/2015 06/14/2015 Inactive atorvastatin 40 mg tablet RxNorm: 722749 1 Tablet(s) PO QD repl aces simvastatin 06/14/2015 12/10/2015 Inactive loratadine 10 mg tablet RxNorm: 662841 Tablet(s) 1 Tablet(s) PO QD for drainage 06/14/2015 06/07/2016 Inactive Celexa 40 mg tablet RxNorm: 472821 1 Tablet(s) PO QD TA KE ONE (1) TABLET BY MOUTH DAILY 06/14/2015 12/29/2015 Inactive Generic For:HARJINDER XA 40 MG TABLET clindamycin 300 mg capsule RxNorm: 965535 2 Capsule(s) PO BID 06/0306/12/2015 Inactive metformin ER 1,000 mg tablet,extended release 24hr RxNorm: 8 64971 1 Tablet(s) PO QD 06/03/2015 06/02/2015 Inactive metformin ER 1,000 mg tablet,extended release 24hr RxNorm: 8 85427 1 Tablet(s) PO QD 06/03/2015 06/13/2015 Inactive mupirocin 2 % topical ointment RxNorm: 748708 TOP apply to open lesion of knee twice daily 06/03/2015 01/30/2016 Inactive Zocor 20 mg tablet RxNorm: 973982 Tablet(s) 1 Tablet(s ) PO QD -needs lipids labs 05/13/2015 06/13/2015 Inactive Celexa 40 mg tablet RxNorm: 914331 1 Tablet(s) PO QD TA KE ONE (1) TABLET BY MOUTH DAILY 05/13/2015 06/13/2015 Inactive Generic For:HARJINDER XA 40 MG TABLET Zocor 20 mg tablet RxNorm: 559654 Tablet(s) 1 Tablet(s ) PO QD -needs lipids labs 02/23/2015 03/24/2015 Inactive loratadine 10 mg tablet RxNorm: 989047 1 Tablet(s) PO QD for dr saenz 12/24/2014 06/13/2015 Inactive Zocor 20 mg tablet RxNorm: 351516 1 Tablet(s) PO QD -needs lipi ds labs 11/17/2014 02/23/2015 Inactive Celexa 40 mg tablet RxNorm: 911925 1 Tablet(s) PO QD 1 Tablet(s) PO QD 1 Tablet(s) PO QD Generic OKAY 11/11/2014 05/13/2015 Inactive Zocor 20 mg tablet RxNorm: 800076 1 Tablet(s) PO QD -needs lipi ds labs 11/11/2014 11/16/2014 Inactive omeprazole 20 mg capsule,delayed release RxNorm: 887506 2 Capsule(s) PO QD TAKE 2 CAPSULES BY MOUTH DAILY 10/27/2014 04/24/2015 Inactive Shena harp For:*PRILOSEC 20 MG CAPSULE trazodone 50 mg tablet RxNorm: 661289 1 1/2 Tablet(s) PO QHS 201412/29/2015 Inactive losartan 100 mg tablet RxNorm: 000705 1 Tablet(s) PO QD -replac es lisinopril 10/26/2014 04/23/2015 Inactive Levaquin 500 mg tablet RxNorm: 967547 1 Tablet(s) PO QD 10/08/2014 Inactive Levaquin 500 mg tablet RxNorm: 902737 1 Tablet(s) PO QD 10/08/2014 Inactive Diflucan 100 mg tablet RxNorm: 963824 1 Tablet(s) PO QD 10/06/2014 Inactive DuoNeb 0.5 mg-3 mg(2.5 mg base)/3 mL solution for nebulizati on RxNorm: 9769859 3 Milliliter(s) INH QID 09/23/2014 08/09/2016 Inactive Ventolin HFA 90 mcg/actuation aerosol inhaler RxNorm: 845476 2 Puff(s) INH QID as needed for shortness of breath 09/21/2014 12/29/2015 Inactive [AttnRPh: Saving apply/adjudicate RxGRP:SG20 RxBIN:[id number] RxPCN: ID#:[id number]] promethazine-codeine 6.25 mg-10 mg/5 mL syrup RxNorm: 901192 1 Teaspoon(s) PO QHS as needed for cough 09/08/2014 09/20/2014 Inactive prednisone 20 mg tablet RxNorm: 159025 1 Tablet(s) PO BID 09/02/2014 09/08/2014 Inactive promethazine-codeine 6.25 mg-10 mg/5 mL syrup RxNorm: 180664 1 Teaspoon(s) PO Q4H 09/02/2014 09/20/2014 Inactive doxycycline monohydrate 100 mg capsule RxNorm: 128333 1 Capsule (s) PO BID 09/02/2014 09/07/2014 Inactive Tessalon Perles 100 mg capsule RxNorm: 451247 1 Capsule (s) PO TID as needed for cough 08/31/2014 09/20/2014 Inactive Actos 15 mg tablet RxNorm: 374293 1 Tablet(s) PO QAM 1 Tablet(s ) PO QAM 08/26/2014 09/20/2014 Inactive loratadine 10 mg tablet RxNorm: 393457 1 Tablet(s) PO QD for dr saenz 08/26/2014 10/26/2014 Inactive Zithromax 500 mg tablet RxNorm: 960206 1 Tablet(s) PO QD 08/25/2014 1 11/01/2013 Inactive Zithromax 500 mg tablet RxNorm: 516503 1 Tablet(s) PO QD 08/25/2014 1 10/25/2013 Inactive Trazadone 75mg Tablet RxNorm: 1 Tablet(s) PO QHS 08/10/20142018 Inactive Zocor 20 mg tablet RxNorm: 567200 1 Tablet(s) PO QD 08/10/20142014 Inactive Trazadone 75mg Tablet RxNorm: 1 Tablet(s) PO QHS as need ed for sleep 08/10/2014 10/08/2014 Inactive Celexa 40 mg tablet RxNorm: 078401 1 Tablet(s) PO QD 1 Tablet(s) PO QD 1 Tablet(s) PO QD Generic OKAY 06/09/2014 10/06/2014 Inactive Actos 15 mg tablet RxNorm: 383136 1 Tablet(s) PO QAM 05/12/201408/26 Inactive lisinopril 20 mg tablet RxNorm: 238070 1 Tablet(s) PO QD 05/12/2014 0 10/26/2014 Inactive TAKE ONE TABLET BY MOUTH EVERY DAY;Gener ic For:*PRINIVIL 20 MG TABLET [AttnRPh: Saving apply/adjudicate RxGRP:SG20 RxBIN:[id number] RxPCN: ID#:[id number]] hydrocodone 5 mg-acetaminophen 325 mg tablet RxNorm: 935508 1 Tablet(s) PO TID as needed for pain for severe pain 04/30/2014 08/09/2014 Inactive hydrocodone 5 mg-acetaminophen 325 mg tablet RxNorm: 483627 1 Tablet(s) PO TID as needed for pain for severe pain 04/17/2014 04/29/2014 Inactive doxycycline hyclate 100 mg capsule RxNorm: 879716 1 Capsule(s) PO BID 03/05/2014 03/04/2014 Inactive doxycycline hyclate 100 mg capsule RxNorm: 272143 1 Capsule(s) PO BID 03/05/2014 03/14/2014 Inactive albuterol sulfate 2.5 mg/3 mL (0.083 %) solution for n ebulization RxNorm: 197593 Milliliter(s) INH USE 1 VIAL IN NEBULIZE R EVERY FOUR HOURS NEEDED FOR WHEEZING OR SHORTNESS OF BREATH 03/02/2014 06/29/2015 Inactive Generic For:*PROVENTIL 0.83 MG/ML SOLUTN 06/13/2013 2:04:46 PM Celexa 40 mg tablet RxNorm: 994862 1 Tablet(s) PO QD 1 Tablet(s) PO QD replaces lexapro. Generic OKAY 01/13/2014 06/09/2014 Inactive Actos 15 mg tablet RxNorm: 179799 1 Tablet(s) PO QAM 01/07/201405/12 Inactive lisinopril 20 mg tablet RxNorm: 858116 1 Tablet(s) PO QD 12/08/2013 0 05/12/2014 Inactive TAKE ONE TABLET BY MOUTH EVERY DAY;Gener ic For:*PRINIVIL 20 MG TABLET cefdinir 300 mg capsule RxNorm: 574813 2 Capsule(s) PO QD 11/10/2013 08/09/2014 Inactive cefdinir 300 mg capsule RxNorm: 284366 2 Capsule(s) PO QD 10/09/2013 10/15/2013 Inactive Actos 15 mg tablet RxNorm: 682314 1 Tablet(s) PO QAM 10/09/201301/06 Inactive doxycycline hyclate 100 mg capsule RxNorm: 3744562 1 Capsule(s) PO Q12H 09/18/2013 09/27/2013 Inactive omeprazole 20 mg capsule,delayed release RxNorm: 741182 2 Capsule(s) PO QD TAKE 2 CAPSULES BY MOUTH DAILY 09/03/2013 03/01/2014 Inactive Generi c For:*PRILOSEC [address] Celexa 40 mg tablet RxNorm: 571191 1 Tablet(s) PO QD re places lexapro. Generic OKAY 09/03/2013 01/13/2014 Inactive Symbicort 160 mcg-4.5 mcg/actuation HFA aerosol inhaler RxNo rm: 4264614 2 Puff(s) INH BID 08/13/2013 03/23/2014 Inactive metformin 1,000 mg tablet RxNorm: 137992 1 Tablet(s) PO BID 013 08/12/2013 Inactive TAKE ONE TABLET BY MOUTH TWI CE DAILY;Generic For:GLUCOPHAGE 1,000 MG TABLET 08/27/12 Thank you Actos 15 mg tablet RxNorm: 753028 1 Tablet(s) PO QAM 06/23/201310/09 Inactive lisinopril 20 mg tablet RxNorm: 438833 1 Tablet(s) PO QD 06/23/2013 0 12/08/2013 Inactive TAKE ONE TABLET BY MOUTH EVERY DAY;Gener ic For:*PRINIVIL 20 MG TABLET albuterol sulfate 2.5 mg/3 mL (0.083 %) solution for n ebulization RxNorm: 889210 Solution for Nebulization INH USE 1 VIAL IN NEBULIZER EVERY FOUR HOURS NEEDED FOR WHEEZING OR SHORTNESS OF BREATH 06/16/2013 03/01/2014 Inactive Generic For:*PROVENTIL 0.83 MG/ML SOLUTN 06/13/2013 2:04:46 PM prednisone 10 mg tablet RxNorm: 910077 1 Tablet(s) PO BID 04/09/2013 04/13/2013 Inactive AndroGel 1.25 gram/actuation (1%) Transdermal Gel Pump RxNorm: 2 62031 TD 04/09/2013 08/09/2014 Inactive APPLY 4 PUMPS OF GEL AT BEDTIME DIRECTED; (Appended: Controlled substance eRx refill - RxReferenceNumber: [id number]) azithromycin 250 mg tablet RxNorm: 267772 2 Tablet(s) PO QD 013 04/16/2013 Inactive Amaryl 2 mg tablet RxNorm: 030505 1 Tablet(s) PO BID N eeds appt in 1 month (around March 21) 02/18/2013 08/12/2013 Inactive Amaryl 2 mg tablet RxNorm: 259808 1 Tablet(s) PO BID 02/18/201302/17 Inactive metformin 1,000 mg tablet RxNorm: 426586 1 Tablet(s) PO BID 013 07/27/2013 Inactive TAKE ONE TABLET BY MOUTH TWI CE DAILY;Generic For:GLUCOPHAGE 1,000 MG TABLET 08/27/12 Thank you Actos 15 mg tablet RxNorm: 130113 1 Tablet(s) PO QAM 02/04/201306/03 Inactive albuterol sulfate 2.5 mg/3 mL (0.083 %) Neb Solution RxNorm: 621900 1 Unit Dose INH Q4H prn wheezing or shortness of breath 01/30/2013 06/15/2013 Inac tive Medrol (Gui) 4 mg tablets in a dose pack RxNorm: 649104 Tablet(s) PO as directed 01/20/2013 07/15/2013 Inactive cefdinir 300 mg capsule RxNorm: 200419 1 Capsule(s) PO BID anti biotic 01/20/2013 01/29/2013 Inactive lisinopril 20 mg tablet RxNorm: 756029 Tablet(s) PO 01/13/20132012 Inactive TAKE ONE TABLET BY MOUTH EVERY DAY;Gener ic For:*PRINIVIL 20 MG TABLET citalopram 40 mg tablet RxNorm: 292786 Tablet(s) PO 01/13/20132013 Inactive TAKE ONE (1) TABLET BY MOUTH DAILY;Gener ic For:CELEXA 40 MG TABLET omeprazole 20 mg capsule,delayed release RxNorm: 415852 Capsule(s) PO TAKE 2 CAPSULES BY MOUTH DAILY 11/15/2012 09/03/2013 Inactive Generic For:*PRILOSEC [address] amoxicillin 875 mg tablet RxNorm: 727428 1 Tablet(s) PO BID 013 10/28/2012 Inactive Actos 30 mg tablet RxNorm: 818864 1 Tablet(s) PO QD 09/23/20122011 Inactive Actos 15 mg tablet RxNorm: 181687 1 Tablet(s) PO QAM 09/23/201209/22 Inactive Actos 15 mg tablet RxNorm: 609228 1 Tablet(s) PO QAM 09/23/201202/04 Inactive prednisone 20 mg tablet RxNorm: 130623 1 Tablet(s) PO BID 08/28/2012 09/03/2012 Inactive doxycycline hyclate 100 mg tablet RxNorm: 3081594 1 Tablet(s) PO BI D 08/28/2012 09/06/2012 Inactive metformin 1,000 mg tablet RxNorm: 778593 Tablet(s) PO 08/27/201201/22 Inactive TAKE ONE TABLET BY MOUTH TWICE DAILY;Gen joshua For:GLUCOPHAGE 1,000 MG TABLET 08/27/12 Thank you citalopram 40 mg tablet RxNorm: 889985 Tablet(s) PO 07/30/20122012 Inactive TAKE ONE (1) TABLET BY MOUTH DAILY;Gener ic For:CELEXA 40 MG TABLET lisinopril 20 mg tablet RxNorm: 378902 Tablet(s) PO 07/30/20122012 Inactive TAKE ONE TABLET BY MOUTH EVERY DAY;Gener ic For:*PRINIVIL 20 MG TABLET AndroGel 1.25 gram/actuation (1%) Transdermal Gel Pump RxNor m: [id number] Gel in Metered-Dose Pump TD 07/09/2012 04/08/2013 Inactive APPLY 4 PUM PS OF GEL AT BEDTIME DIRECTED;WC (Appended: Controlled substance eRx refill - RxReferenceNumber: [id number]) citalopram 40 mg tablet RxNorm: 948877 Tablet(s) PO 07/01/20122011 Inactive TAKE ONE (1) TABLET BY MOUTH DAILY;Gener ic For:CELEXA 40 MG TABLET metformin 1,000 mg tablet RxNorm: 135173 1 Tablet(s) PO BID 012 08/25/2012 Inactive TAKE 1 TABLET BY MOUTH TWICE DAILY;Generic For:GLUCOPHAGE 1,000 MG TABLET meclizine 25 mg Tab RxNorm: 643525 1 Tablet(s) PO QID prn dizziness 05/09/2012 05/18/2012 Inactive lisinopril 20 mg tablet RxNorm: 823433 Tablet(s) PO QD 04/22/2012 Inactive TAKE ONE (1) TABLET BY MOUTH DAILY;Gener ic For:*PRINIVIL 20 MG TABLET metformin 1,000 mg tablet RxNorm: 929701 Tablet(s) PO 03/19/201212/2011 Inactive TAKE 1 TABLET BY MOUTH TWICE DAILY;Gener ic For:GLUCOPHAGE 1,000 MG TABLET cefdinir 300 mg Cap RxNorm: 641356 1 Capsule(s) PO BID 11/28/2011 Inactive cefdinir 300 mg Cap RxNorm: 324737 1 Capsule(s) PO BID 11/01/2011 Inactive citalopram 40 mg tablet RxNorm: 927965 Tablet(s) PO 10/30/20112011 Inactive TAKE ONE (1) TABLET BY MOUTH DAILY;Gener ic For:CELEXA 40 MG TABLET cefdinir 300 mg Cap RxNorm: 521986 1 Capsule(s) PO BID 10/02/2011 Inactive metformin 1,000 mg Tab RxNorm: 155821 1 Tablet(s) PO BID 09/28/2011 0 01/25/2012 Inactive citalopram 40 mg Tab RxNorm: 145765 1 Tablet(s) PO QD 09/28/201111/2011 Inactive omeprazole 20 mg capsule,delayed release RxNorm: 526349 2 Capsu le(s) PO QD 09/28/2011 03/25/2012 Inactive lisinopril 20 mg Tab RxNorm: 930103 Tablet(s) PO 08/21/2011 04/21/2012 Inactive TAKE ONE (1) TABLET BY MOUTH DAILY;Generic For:*PRINIVIL 20 MG TABLET AndroGel 1.25 gram/actuation (1%) Transdermal Gel Pump RxNor m: [id number] Gel in Metered-dose Pump TD 08/21/2011 07/09/2012 Inactive APPLY 4 PUM PS OF GEL AT BEDTIME DIRECTED (Appended: Controlled substance eRx refill - RxReferenceNumber: [id number]) Lantus Solostar 100 unit/mL (3 mL) Sub-Q Insulin Pen RxNorm: 474457 30 Unit(s) SQ QD 06/20/2011 05/08/2012 Inactive Lantus Solostar 100 unit/mL (3 mL) Sub-Q Insulin Pen RxNorm: 903587 30 Unit(s) SQ QD 06/19/2011 06/19/2011 Inactive metformin 1,000 mg Tab RxNorm: 137602 1 Tablet(s) PO BID 05/12/2011 1 11/09/2010 Inactive citalopram 40 mg Tab RxNorm: 577795 1 Tablet(s) PO QD 03/06/201105/2011 Inactive metformin 1,000 mg Tab RxNorm: 239288 1 Tablet(s) PO BID 12/27/2010 0 04/25/2011 Inactive lisinopril 20 mg Tab RxNorm: 628682 Tablet(s) PO TAKE 1 TABLET BY MOUTH EVERY DAY;Generic For:*PRINIVIL 20 MG TABLET 12/26/2010 08/20/2011 Inactive Ceftin 500 mg Tab RxNorm: 698987 1 Tablet(s) PO BID 12/19/20102010 Inactive omeprazole 20 mg Cap, Delayed Release RxNorm: 235043 2 Capsule( s) PO QD 09/13/2010 03/11/2011 Inactive Byetta 10 mcg/0.04 mL per dose Sub-Q Pen Injector RxNorm: 84 7913 1 Unit Dose SQ BID 09/07/2010 10/06/2010 Inactive Celexa 40 mg tablet RxNorm: 490592 1 Tablet(s) PO QD re places lexapro. Generic OKAY 08/09/2010 02/04/2011 Inactive Actos 30 mg Tab RxNorm: 870578 1 Tablet(s) PO QD 08/09/2010 04/02/2011 Inactive lisinopril 20 mg Tab RxNorm: 964342 1 Tablet(s) PO QD 08/09/201011/22 Inactive metformin 1,000 mg Tab RxNorm: 696360 1 Tablet(s) PO BID 08/09/2010 0 12/06/2010 Inactive Metformin 1,000 mg Tab RxNorm: 399354 1 Tablet(s) PO BID 04/26/2010 0 04/25/2010 Inactive metformin 1,000 mg Tab RxNorm: 448115 1 Tablet(s) PO BID 04/26/2010 1 Inactive Lomotil 2.5 mg-0.025 mg Tab RxNorm: 0698667 1 Tablet(s) PO TID 1-2 TABS THREE TIMES DAILY 04/05/2010 04/07/2010 Inactive Mupirocin 2 % Topical Cream RxNorm: 397123 TOP BID 04/05/201003/25 Inactive lisinopril 20 mg Tab RxNorm: 096885 1 Tablet(s) PO QD 03/29/201010/2009 Inactive Actos 30 mg Tab RxNorm: 744397 1 Tablet(s) PO QD 03/29/2010 07/26/2010 Inactive Lisinopril 20 mg Tab RxNorm: 524535 1 Tablet(s) PO QD 02/27/201001/2010 Inactive Actos 30 mg Tab RxNorm: 673105 1 Tablet(s) PO QD 02/14/2010 03/28/2010 Inactive Celexa 40 mg Tab RxNorm: 122215 1 Tablet(s) PO QD replaces lexapro 01/13/2010 07/11/2010 Inactive Cyclobenzaprine 10 mg Tab RxNorm: 124499 1 Tablet(s) PO TID prn spasm 12/23/2009 01/21/2010 Inactive Cyclobenzaprine 10 mg Tab RxNorm: 431255 1 Tablet(s) PO TID 010 12/22/2009 Inactive Hydrocodone-Acetaminophen 7.5 mg-750 mg Tab RxNorm: 672744 1 Ta blet(s) PO Q4-6H 12/23/2009 12/22/2009 Inactive aspirin 81 mg tablet RxNorm: 494556 1 Tablet(s) PO QD No Start Date Active isosorbide mononitrate ER 60 mg tablet,extended release 24 h r RxNorm: 122696 1 Tablet(s) PO QD No Start Date Active amlodipine 5 mg tablet RxNorm: 753622 1 Tablet(s) PO QD No Start Date Active Vitamin D3 1,000 unit tablet RxNorm: 583306 3 Tablet(s) PO QD No St art Date 10/26/2014 Inactive Lexapro 20 mg Tab RxNorm: 414416 1 Tablet(s) PO QD No Start Date 12/24 Inactive loperamide 2 mg tablet RxNorm: 845051 Tablet(s) PO PRN No Start Date 06/07/2016 Inactive Levemir FlexTouch U-100 Insulin 100 unit/mL (3 mL) sub cutaneous pen RxNorm: 947335 22 Unit(s) SQ QD No Start Date 12/21/2019 Inactive Janumet 50 mg-1,000 mg Tab RxNorm: 453053 1 Tablet(s) PO BID No Sta rt Date 01/12/2010 Inactive Levemir U-100 Insulin 100 unit/mL subcutaneous solution RxNo rm: 710250 10 Unit(s) SQ QHS No Start Date 12/08/2018 Inactive Medrol (Giu) 4 mg tablets in a dose pack RxNorm: 464825 Tablet(s) PO Use as directed No Start Date 12/22/2018 Inactive aspirin 325 mg tablet RxNorm: 912645 1 Tablet(s) PO QD No Start Date 08/09/2016 Inactive Efudex 5 % Topical Cream RxNorm: 340876 Application TOP QD prn fto skin lesion No Start Date 08/12/2013 Inactive nitroglycerin 0.4 mg sublingual tablet RxNorm: 163617 Tablet(s) SL as needed No Start Date 12/18/2018 Inactive levofloxacin 500 mg tablet RxNorm: 195765 1 Tablet(s) PO QD No Star t Date 08/06/2018 Inactive ferrous sulfate 325 mg (65 mg iron) tablet RxNorm: 363572 1 Tab let(s) PO QHS No Start Date 04/16/2017 Inactive fluorouracil 5 % topical cream RxNorm: 004685 1 TOP No Start James e 08/06/2018 Inactive Vitamin D3 1,000 unit capsule RxNorm: 250204 1 Capsule(s) PO QD No Start Date 02/03/2018 Inactive Hydrocodone-Acetaminophen 7.5 mg-750 mg Tab RxNorm: 299973 1 Ta blet(s) PO PRN No Start Date 08/09/2014 Inactive pantoprazole 40 mg tablet,delayed release RxNorm: 630727 1 Tabl et(s) PO QD No Start Date 01/22/2018 Inactive omeprazole 20 mg Cap, Delayed Release RxNorm: 383379 2 Capsule( s) PO QD No Start Date 09/12/2010 Inactive DuoNeb 0.5 mg-3 mg(2.5 mg base)/3 mL solution for nebulizati on RxNorm: 4385151 INH Q4H as needed No Start Date 10/22/2018 Inactive Lyrica 75 mg capsule RxNorm: 093095 2 Capsule(s) PO QHS No Start Da te 03/09/2019 Inactive isosorbide mononitrate ER 30 mg tablet,extended release 24 h r RxNorm: 210561 1 Tablet(s) PO QD No Start Date 12/08/2018 Inactive Tradjenta 5 mg tablet RxNorm: 2293880 1 Tablet(s) PO QD No Start Da te 08/09/2016 Inactive Tudorza Pressair 400 mcg/actuation breath activated RxNorm: 5420841 1 Puff(s) INH BID No Start Date 06/17/2017 Inactive Lantus Solostar 100 unit/mL (3 mL) Sub-Q Insulin Pen RxNorm: 139499 30 Unit(s) SQ QD No Start Date 06/18/2011 Inactive Requip 4 mg tablet RxNorm: 105406 1 Tablet(s) PO BID No Start Date Inactive Symbicort 160 mcg-4.5 mcg/actuation HFA aerosol inhaler RxNo rm: 0246661 2 Puff(s) INH BID No Start Date 07/11/2018 Inactive atorvastatin 40 mg tablet RxNorm: 606226 1 Tablet(s) PO QD No Start Date 12/18/2018 Inactive tramadol 50 mg tablet RxNorm: 422890 1 Tablet(s) PO TID as needed for pain (take alone with two extra strength tylenol) No Start Date 01/16/2019 Inactive Symbicort 160 mcg-4.5 mcg/actuation HFA aerosol inhaler RxNo rm: 7641976 2 Puff(s) INH BID No Start Date 08/12/2013 Inactive Vitamin D3 5,000 unit tablet RxNorm: 154964 1 Tablet(s) PO QD No St art Date 05/08/2019 Inactive albuterol sulfate 2.5 mg/3 mL (0.083 %) Neb Solution RxNorm: 497337 1 Unit Dose INH Q4H prn wheezing or shortness of breath No Start Date 01/29/2013 Inac tive Ranexa 500 mg tablet,extended release RxNorm: 535803 1 Tablet(s ) PO BID No Start Date 02/03/2018 Inactive Advair Diskus 500 mcg-50 mcg/dose powder for inhalation RxNo rm: 8912221 1 Puff(s) INH BID No Start Date 08/09/2016 Inactive clopidogrel 75 mg tablet RxNorm: 480981 1 Tablet(s) PO QD No Start Date 05/01/2018 Inactive metformin 1,000 mg Tab RxNorm: 404558 1 Tablet(s) PO BID No Start D ate 08/12/2013 Inactive Silenor 3 mg tablet RxNorm: 165094 1 Tablet(s) PO QHS No Start Date 0 04/04/2017 Inactive Medrol (Gui) 4 mg tablets in a dose pack RxNorm: 236799 Tablet(s) PO as directed No Start Date 01/19/2013 Inactive Requip 4 mg tablet RxNorm: 835796 1 Tablet(s) PO BID No Start Date Inactive clopidogrel 75 mg tablet RxNorm: 302093 1 Tablet(s) PO QD No Start Date 02/03/2018 Inactive Tradjenta 5 mg tablet RxNorm: 4881272 1 Tablet(s) PO QD No Start Da te 02/03/2018 Inactive ProAir HFA 90 mcg/Actuation Aerosol Inhaler RxNorm: 854807 2 Pu ff(s) INH PRN No Start Date 07/09/2012 Inactive Tessalon Perles 100 mg capsule RxNorm: 217069 1 Capsule (s) PO TID as needed for cough No Start Date 08/30/2014 Inactive ferrous sulfate 325 mg (65 mg iron) tablet RxNorm: 666042 1 Tab let(s) PO QD No Start Date 05/08/2019 Inactive pioglitazone 15 mg tablet RxNorm: 103342 1 Tablet(s) PO QD No Start Date 09/20/2014 Inactive Lexapro Oral RxNorm: Oral No Start Date 12/13/2009 Inactive Breo Ellipta 100 mcg-25 mcg/dose powder for inhalation RxNor m: 2291159 1 Puff(s) INH BID No Start Date 05/31/2015 Inactive Tylenol Extra Strength 500 mg tablet RxNorm: 456095 2 T ablet(s) PO QHS along with ropironole No Start Date 12/18/2018 Inactive tramadol 50 mg tablet RxNorm: 775890 1 Tablet(s) PO QID as need ed for pain No Start Date 12/24/2018 Inactive cyclobenzaprine 10 mg Tab RxNorm: 299973 Oral No Start Date 12/22 Inactive Levemir FlexTouch 100 unit/mL (3 mL) subcutaneous insulin pe n RxNorm: 685414 10 Unit(s) SQ QD No Start Date 03/08/2016 Inactive amlodipine 5 mg tablet RxNorm: 638226 1 Tablet(s) PO QD No Start Da te 08/09/2016 Inactive Novolog 100 unit/mL subcutaneous solution RxNorm: 388206 10 Uni t(s) SQ AC No Start Date 08/12/2017 Inactive Levemir FlexTouch 100 unit/mL (3 mL) subcutaneous insulin pe n RxNorm: 100979 25 Unit(s) SQ QPM No Start Date 08/06/2018 Inactive Farxiga 5 mg tablet RxNorm: 2350235 1 Tablet(s) PO QD No Start Date 0 10/05/2014 Inactive DuoNeb 0.5 mg-3 mg(2.5 mg base)/3 mL solution for nebulizati on RxNorm: 8254299 inhalation No Start Date 09/23/2014 Inactive Doxycycline 100 mg Cap RxNorm: 828203 1 Capsule(s) PO BID No Start Date 12/18/2010 Inactive Vitamin B12 1000mcg Tablet RxNorm: 1 Tablet(s) PO QD No Start Date 02/03/2018 Inactive Hydrocodone-Acetaminophen 7.5 mg-750 mg Tab RxNorm: 797175 1 Ta blet(s) PO Q6-8H No Start Date 12/22/2009 Inactive Xigduo XR 5 mg-1,000 mg tablet,extended release RxNorm: 1593 833 1 Tablet(s) PO QD No Start Date 05/31/2015 Inactive cyanocobalamin (vit B-12) 1,000 mcg/mL injection solution Rx Norm: 594201 1 injection weekly for 4 weeks 1 Milliliter(s) Inj No Start Date 05/08/2019 Inactive AndroGel 1.25 g/Actuation (1%) Transdermal Gel Pump RxNorm: 5611704 TD Apply 4pumps daily No Start Date 08/21/2011 Inactive Actoplus MET 15 mg-850 mg Tab RxNorm: 260826 1 Tablet(s) PO BID No Start Date 12/18/2010 Inactive Amaryl 2 mg tablet RxNorm: 153555 1 Tablet(s) PO BID No Start Date Inactive Levemir FlexTouch 100 unit/mL (3 mL) subcutaneous insulin pe n RxNorm: 538839 20 Unit(s) SQ QD No Start Date 06/12/2016 Inactive Symbicort 160 mcg-4.5 mcg/actuation HFA aerosol inhaler RxNo rm: 0348226 2 Puff(s) INH BID No Start Date 02/03/2018 Inactive Symbicort 160 mcg-4.5 mcg/Actuation Inhalation HFA Aer osol Inhaler RxNorm: 3971518 2 INH BID No Start Date 12/18/2010 Inactive Farxiga 5 mg tablet RxNorm: 7220539 1 Tablet(s) PO QD No Start Date 0 03/01/2015 Inactive magnesium oxide 400 mg (241.3 mg magnesium) tablet RxNorm: 1 93346 1 Tablet(s) PO QHS No Start Date 05/08/2019 Inactive Tradjenta 5 mg tablet RxNorm: 5995692 2 Tablet(s) PO QD No Start Da te 07/21/2015 Inactive Levemir FlexTouch U-100 Insulin 100 unit/mL (3 mL) sub cutaneous pen RxNorm: 971882 40 Unit(s) SQ QD No Start Date 08/06/2018 Inactive Sinemet CR 50 mg-200 mg tablet,extended release RxNorm: 8343 41 1 Tablet(s) PO QHS No Start Date 09/24/2017 Inactive metoprolol tartrate 25 mg tablet RxNorm: 359673 1/2 Tablet(s) P O BID No Start Date 02/03/2018 Inactive Requip 4 mg tablet RxNorm: 704255 1 Tablet(s) PO QHS No Start Date Inactive Ventolin HFA 90 mcg/actuation aerosol inhaler RxNorm: 965497 2 Puff(s) INH Q4H as needed No Start Date 04/22/2018 Inactive B12 5,000 mcg-100 mcg sublingual lozenge RxNorm: 544110 IM as d irected No Start Date 05/08/2019 Inactive ropinirole 1 mg tablet RxNorm: 639904 1 Tablet(s) PO QHS No Start D ate 08/06/2018 Inactive Percocet 5 mg-325 mg tablet RxNorm: 0389016 1 Tablet(s) PO Q4H as needed for pain (Dr Rizzo) No Start Date 10/22/2018 Inactive hydrocodone 5 mg-acetaminophen 325 mg tablet RxNorm: 784524 1 Tablet(s) PO TID as needed for pain for severe pain No Start Date 04/16/2014 Inactive scopolamine 1.5 mg 72 hr Transderm Patch RxNorm: 814290 Application TD Q72H for dizziness No Start Date 08/12/2013 Inactive ipratropium-albuterol 0.5 mg-3 mg(2.5 mg base)/3 mL ne bulization soln RxNorm: 9097807 1 Unit Dose INH Q4H No Start Date 01/16/2019 Inactive Medication Administered No Medication Administered data Immunizations Vaccine Codes Date Status Influenza CVX: 135 08/07/2019 Complete Pneumococcal CVX: 33 07/24/2017 Complete Influenza CVX: 135 06/13/2016 Complete Pneumococcal CVX: 133 06/13/2016 Complete Influenza CVX: 141 07/10/2012 Pneumovax Unknown 07/10/2012 Results Observation Observation Code Item Item Code Result Date S ervice Location COMPLETE BLOOD COUNT [id number] WBC 5.5 10e9/L 06/17/20 19 Unknown COMPLETE BLOOD COUNT [id number] RBC 3.92 10e12/L 2018 Unknown COMPLETE BLOOD COUNT [id number] HEMOGLOBIN 10.9 g/dL 06/17/20 19 Unknown COMPLETE BLOOD COUNT [id number] HEMATOCRIT 34.8 % 06/17/20 19 Unknown COMPLETE BLOOD COUNT [id number] MCV 88.8 fL 9 Unknown COMPLETE BLOOD COUNT 8035658 MCH 27.8 pg 9 Unknown COMPLETE BLOOD COUNT 9057457 MCHC 31.3 g/dL 9 Unknown COMPLETE BLOOD COUNT [id number] PLATELET COUNT 239 10e9/L Unknown COMPLETE BLOOD COUNT 2076899 Mean Plt Volume 10.0 fL Unknown COMPLETE BLOOD COUNT 5581237 Neut Auto 68.0 % 9 Unknown COMPLETE BLOOD COUNT 3638493 Lymph Auto 14.8 % 06/17/20 19 Unknown COMPLETE BLOOD COUNT 6880930 [place] Auto 13.1 % 9 Unknown COMPLETE BLOOD COUNT 2549443 Eos Auto 3.6 % 9 Unknown COMPLETE BLOOD COUNT 5951084 RDW 14.7 % 9 Unknown COMPLETE BLOOD COUNT 9244024 Baso Auto 0.5 % 9 Unknown COMPLETE BLOOD COUNT 8227200 Neutrophil Abs 3.74 10e9/L Unknown COMPLETE BLOOD COUNT 9560276 Lymphocyte Abs 0.81 10e9/L Unknown COMPLETE BLOOD COUNT 0264324 Monocyte Abs 0.72 10e9/L 05/26 Unknown COMPLETE BLOOD COUNT 3354088 Eosinophil Abs 0.20 10e9/L Unknown COMPLETE BLOOD COUNT 5026624 Basophil Abs 0.03 10e9/L 05/26 Unknown COMPLETE BLOOD COUNT 3177215 RDW-SD 46.4 fL 9 Unknown IRON 50032 Iron 36 ug/dL 06/17/2019 Unknown VITAMIN B 12 59041 VITAMIN B12 540 pg/mL 06/17/2019 Unkn own GFR CALC 6544336 GFR Non Afr Amr 59 mL/min 06/17/2019 Unk nown GFR CALC 6242338 GFR Afr Amr >60 mL/min 06/17/2019 Unknow n ERYTHROCYTE SEDIMENTATION RATE 30065 Sed Rate 34 mm/hr 06/17/2019 Unknown THYROID STIMULATING HORMONE 91864 TSH 2.217 uIU/mL 06/17/2019 Unknown COMPREHENSIVE METABOLIC 65047 AST 12 U/L 2018 Unknown COMPREHENSIVE METABOLIC 95300 ALT 11 U/L 2018 Unknown COMPREHENSIVE METABOLIC 93173 BUN 17 mg/dL 2018 Unknown COMPREHENSIVE METABOLIC 59701 ALBUMIN 3.9 g/dL 2018 Unknown COMPREHENSIVE METABOLIC 22656 CHLORIDE 103 mmol/L 06/17 Unknown COMPREHENSIVE METABOLIC 57857 Bili Total 0.4 mg/dL 06/17 Unknown COMPREHENSIVE METABOLIC 03488 ALK PHOS 51 U/L 2018 Unknown COMPREHENSIVE METABOLIC 35868 SODIUM 140 mmol/L 06/17 Unknown COMPREHENSIVE METABOLIC 61901 CREATININE 1.20 mg/dL 05/26 Unknown COMPREHENSIVE METABOLIC 91007 CALCIUM 8.9 mg/dL 2018 Unknown COMPREHENSIVE METABOLIC 35793 POTASSIUM 4.5 mmol/L 06/17 Unknown COMPREHENSIVE METABOLIC 19726 Total Protein 6.1 g/dL Unknown COMPREHENSIVE METABOLIC 11641 Glucose 108 mg/dL 2018 Unknown COMPREHENSIVE METABOLIC 74011 Bicarbonate 27 mmol/L 05/26 Unknown COMPREHENSIVE METABOLIC 68737 AGAP 10 mmol/L 2018 Unknown FERRITIN 65514 FERRITIN 35.5 ng/mL 05/08/2019 Unknown VITAMIN D TOTAL (25 HYDROXY) 31638 Vitamin D 25 OH 26.0 ng/mL 05/08/2019 Unknown GLYCOSYLATED HEMOGLOBIN TEST 34958 Hgb A1c 06915-0 8.2 % 0 05/08/2019 Unknown MEAN GLUC 7580046 Calc Mean Gluc 189 mg/dL 05/08/2019 Unkn own GFR CALC 8931703 GFR Non Afr Amr >60 mL/min 05/08/2019 Un known GFR CALC 2492309 GFR Afr Amr >60 mL/min 05/08/2019 Unknow n VITAMIN B 12 75773 VITAMIN B12 197 pg/mL 05/08/2019 Unkn own IRON 78538 Iron 34 ug/dL 05/08/2019 Unknown COMPLETE BLOOD COUNT 1648100 WBC 6.9 10e9/L 05/08/20 19 Unknown COMPLETE BLOOD COUNT 1013457 RBC 3.95 10e12/L 2018 Unknown COMPLETE BLOOD COUNT 7704122 HEMOGLOBIN 11.1 g/dL 05/08/20 19 Unknown COMPLETE BLOOD COUNT 8801795 HEMATOCRIT 34.9 % 05/08/20 19 Unknown COMPLETE BLOOD COUNT 7973289 MCV 88.4 fL 9 Unknown COMPLETE BLOOD COUNT 8842230 MCH 28.1 pg 9 Unknown COMPLETE BLOOD COUNT 1481595 MCHC 31.8 g/dL 9 Unknown COMPLETE BLOOD COUNT 4479758 PLATELET COUNT 217 10e9/L Unknown COMPLETE BLOOD COUNT 4772159 Mean Plt Volume 9.6 fL Unknown COMPLETE BLOOD COUNT 5626953 Neut Auto 77.6 % 9 Unknown COMPLETE BLOOD COUNT 2039620 Lymph Auto 10.7 % 05/08/20 19 Unknown COMPLETE BLOOD COUNT 9344355 [place] Auto 10.4 % 9 Unknown COMPLETE BLOOD COUNT 5002101 RDW 14.7 % 9 Unknown COMPLETE BLOOD COUNT 1796697 Eos Auto 1.2 % 9 Unknown COMPLETE BLOOD COUNT 2360862 Baso Auto 0.1 % 9 Unknown COMPLETE BLOOD COUNT 4887872 Neutrophil Abs 5.35 10e9/L Unknown COMPLETE BLOOD COUNT 6472233 Lymphocyte Abs 0.74 10e9/L Unknown COMPLETE BLOOD COUNT 2163478 Monocyte Abs 0.72 10e9/L 04/24 Unknown COMPLETE BLOOD COUNT 0585977 Eosinophil Abs 0.08 10e9/L Unknown COMPLETE BLOOD COUNT 1116603 Basophil Abs 0.01 10e9/L 04/24 Unknown COMPLETE BLOOD COUNT 8764337 RDW-SD 46.6 fL 9 Unknown COMPREHENSIVE METABOLIC 79712 AST 13 U/L 2018 Unknown COMPREHENSIVE METABOLIC 74539 ALT 9 U/L 2018 Unknown COMPREHENSIVE METABOLIC 34742 BUN 18 mg/dL 2018 Unknown COMPREHENSIVE METABOLIC 24426 ALBUMIN 4.3 g/dL 2018 Unknown COMPREHENSIVE METABOLIC 86176 CHLORIDE 99 mmol/L 2018 Unknown COMPREHENSIVE METABOLIC 96391 Bili Total 0.4 mg/dL 05/08 Unknown COMPREHENSIVE METABOLIC 05609 ALK PHOS 48 U/L 2018 Unknown COMPREHENSIVE METABOLIC 36568 SODIUM 137 mmol/L 05/08 Unknown COMPREHENSIVE METABOLIC 63701 CREATININE 0.79 mg/dL 04/24 Unknown COMPREHENSIVE METABOLIC 13364 CALCIUM 9.5 mg/dL 2018 Unknown COMPREHENSIVE METABOLIC 32627 POTASSIUM 4.0 mmol/L 05/08 Unknown COMPREHENSIVE METABOLIC 51740 Total Protein 6.3 g/dL Unknown COMPREHENSIVE METABOLIC 80674 Glucose 232 mg/dL 2018 Unknown COMPREHENSIVE METABOLIC 21069 Bicarbonate 27 mmol/L 04/24 Unknown COMPREHENSIVE METABOLIC 84034 AGAP 11 mmol/L 2018 Unknown GLYCOSYLATED HEMOGLOBIN TEST 34099 Hgb A1c 52260-5 8.9 % 0 12/10/2018 Unknown MEAN GLUC 6527388 Calc Mean Gluc 209 mg/dL 12/10/2018 Unkn own LIPID GROUP 49922 Cholesterol 145 mg/dL 12/09/2018 Unkno wn LIPID GROUP 27730 Triglyceride 235 mg/dL 12/09/2018 Unkn own LIPID GROUP 00660 HDL CHOLESTEROL 40 mg/dL 12/09/2018 U nknown LIPID GROUP 62372 Chol/HDL Ratio 3.62 ratio 12/09/2018 U nknown LIPID GROUP 13532 NON-HDL Chol 105 mg/dL 12/09/2018 Unkn own LIPID GROUP 09564 LDL Cholesterol 58 mg/dL 12/09/2018 U nknown THYROID STIMULATING HORMONE 45973 TSH 1.071 uIU/mL 12/09/2018 Unknown GFR CALC 7781624 GFR Non Afr Amr >60 mL/min 12/09/2018 Un known GFR CALC 0354394 GFR Afr Amr >60 mL/min 12/09/2018 Unknow n COMPLETE BLOOD COUNT 4221838 WBC 7.6 10e9/L 12/10/19 19 Unknown COMPLETE BLOOD COUNT 2371727 RBC 3.97 10e12/L 2018 Unknown COMPLETE BLOOD COUNT 7767335 HEMOGLOBIN 11.4 g/dL 12/10/19 19 Unknown COMPLETE BLOOD COUNT 5652004 HEMATOCRIT 35.8 % 12/10/19 19 Unknown COMPLETE BLOOD COUNT 0638148 MCV 90.2 fL 9 Unknown COMPLETE BLOOD COUNT 4405677 MCH 28.7 pg 9 Unknown COMPLETE BLOOD COUNT 5229553 MCHC 31.8 g/dL 9 Unknown COMPLETE BLOOD COUNT 5203779 PLATELET COUNT 200 10e9/L Unknown COMPLETE BLOOD COUNT 7425919 Mean Plt Volume 10.1 fL Unknown COMPLETE BLOOD COUNT 9237762 Neut Auto 79.0 % 9 Unknown COMPLETE BLOOD COUNT 2684641 Lymph Auto 8.3 % 12/10/19 19 Unknown COMPLETE BLOOD COUNT 7831419 [place] Auto 10.8 % 9 Unknown COMPLETE BLOOD COUNT 3487484 RDW 14.6 % 9 Unknown COMPLETE BLOOD COUNT 3898428 Eos Auto 1.5 % 9 Unknown COMPLETE BLOOD COUNT 2076618 Baso Auto 0.4 % 9 Unknown COMPLETE BLOOD COUNT 4413852 Neutrophil Abs 6.00 10e9/L Unknown COMPLETE BLOOD COUNT 1813267 Lymphocyte Abs 0.63 10e9/L Unknown COMPLETE BLOOD COUNT 0516064 Monocyte Abs 0.82 10e9/L 11/22 Unknown COMPLETE BLOOD COUNT 7592794 Eosinophil Abs 0.11 10e9/L Unknown COMPLETE BLOOD COUNT 1232667 Basophil Abs 0.03 10e9/L 11/22 Unknown COMPLETE BLOOD COUNT 3715889 RDW-SD 46.9 fL 9 Unknown COMPREHENSIVE METABOLIC 24584 AST 11 U/L 2018 Unknown COMPREHENSIVE METABOLIC 73031 ALT 11 U/L 2018 Unknown COMPREHENSIVE METABOLIC 51614 BUN 21 mg/dL 2018 Unknown COMPREHENSIVE METABOLIC 57061 ALBUMIN 4.7 g/dL 2018 Unknown COMPREHENSIVE METABOLIC 96814 CHLORIDE 99 mmol/L 2018 Unknown COMPREHENSIVE METABOLIC 55323 Bili Total 0.4 mg/dL 12/09 Unknown COMPREHENSIVE METABOLIC 93957 ALK PHOS 73 U/L 2018 Unknown COMPREHENSIVE METABOLIC 84529 SODIUM 137 mmol/L 12/09 Unknown COMPREHENSIVE METABOLIC 44933 CREATININE 1.12 mg/dL 11/22 Unknown COMPREHENSIVE METABOLIC 09781 CALCIUM 9.4 mg/dL 2018 Unknown COMPREHENSIVE METABOLIC 93351 POTASSIUM 4.2 mmol/L 12/09 Unknown COMPREHENSIVE METABOLIC 47457 Total Protein 6.8 g/dL Unknown COMPREHENSIVE METABOLIC 04828 Glucose 194 mg/dL 2018 Unknown COMPREHENSIVE METABOLIC 64717 Bicarbonate 30 mmol/L 11/22 Unknown COMPREHENSIVE METABOLIC 63493 AGAP 8 mmol/L 2018 Unknown FREE T4 72659 T4 Free 0.86 ng/dL 12/09/2018 Unknown COMPLETE BLOOD COUNT 0071952 WBC 6.8 10e9/L 04/17/20 17 Unknown COMPLETE BLOOD COUNT 8664117 RBC 3.86 10e12/L 2016 Unknown COMPLETE BLOOD COUNT 1719632 HEMOGLOBIN 9.8 g/dL 04/17/20 17 Unknown COMPLETE BLOOD COUNT 2693441 HEMATOCRIT 31.1 % 04/17/20 17 Unknown COMPLETE BLOOD COUNT 7786267 MCV 80.6 fL 7 Unknown COMPLETE BLOOD COUNT 9065654 MCH 25.4 pg 7 Unknown COMPLETE BLOOD COUNT 4991792 MCHC 31.5 g/dL 7 Unknown COMPLETE BLOOD COUNT 3540772 PLATELET COUNT 247 10e9/L Unknown COMPLETE BLOOD COUNT 2684524 Mean Plt Volume 9.7 fL Unknown COMPLETE BLOOD COUNT 5350852 Neut Auto 74.1 % 7 Unknown COMPLETE BLOOD COUNT 2527546 Lymph Auto 12.0 % 04/17/20 17 Unknown COMPLETE BLOOD COUNT 5820640 [place] Auto 10.8 % 7 Unknown COMPLETE BLOOD COUNT 2344702 RDW 15.9 % 7 Unknown COMPLETE BLOOD COUNT 5966130 Eos Auto 2.5 % 7 Unknown COMPLETE BLOOD COUNT 4436254 Baso Auto 0.6 % 7 Unknown COMPLETE BLOOD COUNT 1469886 Neutrophil Abs 5.04 10e9/L Unknown COMPLETE BLOOD COUNT 7024054 Lymphocyte Abs 0.82 10e9/L Unknown COMPLETE BLOOD COUNT 2729528 Monocyte Abs 0.73 10e9/L 03/25 Unknown COMPLETE BLOOD COUNT 8457190 Eosinophil Abs 0.17 10e9/L Unknown COMPLETE BLOOD COUNT 5038649 RDW-SD 44.4 fL 7 Unknown COMPLETE BLOOD COUNT 3220047 Basophil Abs 0.04 10e9/L 03/25 Unknown MEAN GLUC 7259281 Calc Mean Gluc 223 mg/dL 04/17/2017 Unkn own GFR CALC 8323310 GFR Non Afr Amr >60 mL/min 04/17/2017 Un known GFR CALC 9720541 GFR Afr Amr >60 mL/min 04/17/2017 Unknow n GLYCOSYLATED HEMOGLOBIN TEST 90933 Hgb A1c 70211-4 9.4 % 0 04/17/2017 Unknown IRON 90209 Iron 37 ug/dL 04/17/2017 Unknown VITAMIN B 12 32214 VITAMIN B12 280 pg/mL 04/17/2017 Unkn own THYROID STIMULATING HORMONE 09062 TSH 2.481 uIU/mL 04/17/2017 Unknown COMPREHENSIVE METABOLIC 03951 AST 13 U/L 2016 Unknown COMPREHENSIVE METABOLIC 95514 ALT 12 U/L 2016 Unknown COMPREHENSIVE METABOLIC 11174 BUN 18 mg/dL 2016 Unknown COMPREHENSIVE METABOLIC 58994 ALBUMIN 4.7 g/dL 2016 Unknown COMPREHENSIVE METABOLIC 53121 CHLORIDE 103 mmol/L 04/17 Unknown COMPREHENSIVE METABOLIC 01587 Bili Total 0.4 mg/dL 04/17 Unknown COMPREHENSIVE METABOLIC 36628 ALK PHOS 49 U/L 2016 Unknown COMPREHENSIVE METABOLIC 21065 SODIUM 140 mmol/L 04/17 Unknown COMPREHENSIVE METABOLIC 05401 CREATININE 1.14 mg/dL 03/25 Unknown COMPREHENSIVE METABOLIC 84924 CALCIUM 9.4 mg/dL 2016 Unknown COMPREHENSIVE METABOLIC 48551 POTASSIUM 4.4 mmol/L 04/17 Unknown COMPREHENSIVE METABOLIC 76634 Total Protein 6.7 g/dL Unknown COMPREHENSIVE METABOLIC 22392 Glucose 266 mg/dL 2016 Unknown COMPREHENSIVE METABOLIC 74926 Bicarbonate 25 mmol/L 03/25 Unknown COMPREHENSIVE METABOLIC 13482 AGAP 12 mmol/L 2016 Unknown FERRITIN 63265 FERRITIN 10.0 ng/mL 04/17/2017 Unknown COMPLETE BLOOD COUNT 3406700 WBC 6.8 10e9/L 12/22/19 17 Unknown COMPLETE BLOOD COUNT 6172371 RBC 3.70 10e12/L 2016 Unknown COMPLETE BLOOD COUNT 8670130 HEMOGLOBIN 8.0 g/dL 12/22/19 17 Unknown COMPLETE BLOOD COUNT 8985519 HEMATOCRIT 26.7 % 12/22/19 17 Unknown COMPLETE BLOOD COUNT 3740759 MCV 72.2 fL 7 Unknown COMPLETE BLOOD COUNT 7922068 MCH 21.6 pg 7 Unknown COMPLETE BLOOD COUNT 9841648 MCHC 30.0 g/dL 7 Unknown COMPLETE BLOOD COUNT 9219826 PLATELET COUNT 290 10e9/L Unknown COMPLETE BLOOD COUNT 4628161 Mean Plt Volume 9.3 fL Unknown COMPLETE BLOOD COUNT 7482810 Neut Auto 80.2 % 7 Unknown COMPLETE BLOOD COUNT 4304941 Lymph Auto 9.8 % 12/22/19 17 Unknown COMPLETE BLOOD COUNT 7718815 [place] Auto 8.1 % 7 Unknown COMPLETE BLOOD COUNT 2026576 Eos Auto 1.5 % 7 Unknown COMPLETE BLOOD COUNT 4172408 RDW 17.4 % 7 Unknown COMPLETE BLOOD COUNT 5987711 Baso Auto 0.4 % 7 Unknown COMPLETE BLOOD COUNT 1055949 Neutrophil Abs 5.45 10e9/L Unknown COMPLETE BLOOD COUNT 7591979 Lymphocyte Abs 0.67 10e9/L Unknown COMPLETE BLOOD COUNT 5551783 Monocyte Abs 0.55 10e9/L 11/24 Unknown COMPLETE BLOOD COUNT 7521245 Eosinophil Abs 0.10 10e9/L Unknown COMPLETE BLOOD COUNT 7192485 RDW-SD 44.1 fL 7 Unknown COMPLETE BLOOD COUNT 6736608 Basophil Abs 0.03 10e9/L 11/24 Unknown COMPLETE BLOOD COUNT 7346129 WBC 7.6 10e9/L 12/13/19 17 Unknown COMPLETE BLOOD COUNT 2835668 RBC 3.71 10e12/L 2016 Unknown COMPLETE BLOOD COUNT 2505193 HEMOGLOBIN 8.0 g/dL 12/13/19 17 Unknown COMPLETE BLOOD COUNT 0875083 HEMATOCRIT 27.3 % 12/13/19 17 Unknown COMPLETE BLOOD COUNT 9631029 MCV 73.6 fL 7 Unknown COMPLETE BLOOD COUNT 8160323 MCH 21.6 pg 7 Unknown COMPLETE BLOOD COUNT 1374139 MCHC 29.3 g/dL 7 Unknown COMPLETE BLOOD COUNT 5043887 PLATELET COUNT 330 10e9/L Unknown COMPLETE BLOOD COUNT 6788512 Mean Plt Volume 9.7 fL Unknown COMPLETE BLOOD COUNT 3024439 Neut Auto 73.2 % 7 Unknown COMPLETE BLOOD COUNT 9816877 Lymph Auto 14.5 % 12/13/19 17 Unknown COMPLETE BLOOD COUNT 6563216 [place] Auto 10.5 % 7 Unknown COMPLETE BLOOD COUNT 7376568 RDW 17.3 % 7 Unknown COMPLETE BLOOD COUNT 9231197 Eos Auto 1.3 % 7 Unknown COMPLETE BLOOD COUNT 3592603 Baso Auto 0.5 % 7 Unknown COMPLETE BLOOD COUNT 7094342 Neutrophil Abs 5.56 10e9/L Unknown COMPLETE BLOOD COUNT 3334661 Lymphocyte Abs 1.10 10e9/L Unknown COMPLETE BLOOD COUNT 1500710 Monocyte Abs 0.80 10e9/L 11/23 Unknown COMPLETE BLOOD COUNT 0135814 Eosinophil Abs 0.10 10e9/L Unknown COMPLETE BLOOD COUNT 6337715 RDW-SD 45.2 fL 7 Unknown COMPLETE BLOOD COUNT 6467493 Basophil Abs 0.04 10e9/L 11/23 Unknown IRON 45022 Iron 69 ug/dL 03/09/2016 Unknown VITAMIN B 12 61145 VITAMIN B12 311 pg/mL 03/09/2016 Unkn own MEAN GLUC 6695595 Mean Glucose 260 mg/dL 03/07/2016 Unknow n GLYCOSYLATED HEMOGLOBIN TEST 24329 Hgb A1c 76961-7 10.7 % 0 03/07/2016 Unknown COMPREHENSIVE METABOLIC 24370 AST 14 U/L 2015 Unknown COMPREHENSIVE METABOLIC 52564 ALT 21 U/L 2015 Unknown COMPREHENSIVE METABOLIC 10075 BUN 27 mg/dL 2015 Unknown COMPREHENSIVE METABOLIC 99886 ALBUMIN 4.5 g/dL 2015 Unknown COMPREHENSIVE METABOLIC 10764 CHLORIDE 101 mmol/L 03/06 Unknown COMPREHENSIVE METABOLIC 89667 Bili Total 0.4 mg/dL 03/06 Unknown COMPREHENSIVE METABOLIC 82933 ALK PHOS 49 U/L 2015 Unknown COMPREHENSIVE METABOLIC 66471 SODIUM 136 mmol/L 03/06 Unknown COMPREHENSIVE METABOLIC 36781 CREATININE 1.16 mg/dL 02/22 Unknown COMPREHENSIVE METABOLIC 01264 CALCIUM 9.9 mg/dL 2015 Unknown COMPREHENSIVE METABOLIC 86128 POTASSIUM 4.5 mmol/L 03/06 Unknown COMPREHENSIVE METABOLIC 93527 Total Protein 6.7 g/dL Unknown COMPREHENSIVE METABOLIC 60706 Glucose 245 mg/dL 2015 Unknown COMPREHENSIVE METABOLIC 85055 Bicarbonate 24 mmol/L 02/22 Unknown COMPREHENSIVE METABOLIC 77990 AGAP 11 mmol/L 2015 Unknown THYROID STIMULATING HORMONE 83322 TSH 0.775 uIU/mL 03/06/2016 Unknown TESTOSTERONE TOTAL 88530 Testos Total 96 ng/dL 03/06/20 16 Unknown LIPID GROUP 59359 Cholesterol 146 mg/dL 03/06/2016 Unkno wn LIPID GROUP 64735 Triglyceride 249 mg/dL 03/06/2016 Unkn own LIPID GROUP 91811 HDL CHOLESTEROL 46 mg/dL 03/06/2016 U nknown LIPID GROUP 46570 Chol/HDL Ratio 3.17 ratio 03/06/2016 U nknown LIPID GROUP 59471 NON-HDL Chol 100 mg/dL 03/06/2016 Unkn own LIPID GROUP 89934 LDL Cholesterol 50 mg/dL 03/06/2016 U nknown COMPLETE BLOOD COUNT 2587729 WBC 11.2 10e9/L 016 Unknown COMPLETE BLOOD COUNT 0487603 RBC 3.94 10e12/L 2015 Unknown COMPLETE BLOOD COUNT 1542013 HEMOGLOBIN 11.4 g/dL 03/06/20 16 Unknown COMPLETE BLOOD COUNT 3540213 HEMATOCRIT 33.7 % 03/06/20 16 Unknown COMPLETE BLOOD COUNT 0984172 MCV 85.5 fL 6 Unknown COMPLETE BLOOD COUNT 2131416 MCH 28.9 pg 6 Unknown COMPLETE BLOOD COUNT 6463139 MCHC 33.8 g/dL 6 Unknown COMPLETE BLOOD COUNT 8395589 PLATELET COUNT 204 10e9/L Unknown COMPLETE BLOOD COUNT 0444502 Mean Plt Volume 10.1 fL Unknown COMPLETE BLOOD COUNT 3933344 Neut Auto 85.9 % 6 Unknown COMPLETE BLOOD COUNT 6861103 Lymph Auto 6.8 % 03/06/20 16 Unknown COMPLETE BLOOD COUNT 1348421 [place] Auto 7.0 % 6 Unknown COMPLETE BLOOD COUNT 7534539 RDW 13.7 % 6 Unknown COMPLETE BLOOD COUNT 3323805 Eos Auto 0.1 % 6 Unknown COMPLETE BLOOD COUNT 3929761 Baso Auto 0.2 % 6 Unknown COMPLETE BLOOD COUNT 0804011 Neutrophil Abs 9.62 10e9/L Unknown COMPLETE BLOOD COUNT 2366736 Lymphoctye Abs 0.76 10e9/L Unknown COMPLETE BLOOD COUNT 9535704 Monocyte Abs 0.78 10e9/L 02/22 Unknown COMPLETE BLOOD COUNT 2051221 Eosinophil Abs 0.01 10e9/L Unknown COMPLETE BLOOD COUNT 5177104 RDW-SD 41.9 fL 6 Unknown COMPLETE BLOOD COUNT 8839232 Basophil Abs 0.02 10e9/L 02/22 Unknown FREE T4 24249 T4 Free 0.89 ng/dL 03/06/2016 Unknown GFR CALC 8241133 GFR Afr Amr >60 mL/min 03/06/2016 Unknow n GFR CALC 9070796 GFR Non Afr Amr >60 mL/min 03/06/2016 Un known PSA EQUIMOLAR JONATAN 61713 PSA Total 0.78 ng/mL 6 Unknown FREE T4 99321 FREE T4 0.90 NG/DL 07/01/2015 Unknown LIPID GROUP 43582 HDL TEST 44 MG/DL 07/01/2015 Unknown LIPID GROUP 35071 TRIG 303 MG/DL 07/01/2015 Unknown LIPID GROUP 42416 TEST LDL 56 MG/DL 07/01/2015 Unknown LIPID GROUP 21906 CHOL 161 MG/DL 07/01/2015 Unknown LIPID GROUP 40549 RCHOL/HDL 3.66 RATIO 07/01/2015 Unknow n LIPID GROUP 91585 NON-HDL CH 117 MG/DL 07/01/2015 Unknow n THYROID STIMULATING HORMONE 17182 TSH 1.783 uIU/ML 07/01/2015 Unknown COMPLETE BLOOD COUNT 6175324 WBC 6.6 10e9/L 07/01/20 15 Unknown COMPLETE BLOOD COUNT 2886436 RBC 4.18 10e12/L 2014 Unknown COMPLETE BLOOD COUNT 2593363 HGB 12.2 g/dL 5 Unknown COMPLETE BLOOD COUNT 4145780 HCT DET 37.0 % 5 Unknown COMPLETE BLOOD COUNT 4163703 MCV 88.5 fL 5 Unknown COMPLETE BLOOD COUNT 3724268 MCH 29.2 pg 5 Unknown COMPLETE BLOOD COUNT 6499278 MCHC 33.0 g/dL 5 Unknown COMPLETE BLOOD COUNT 5010272 PLT 224 10e9/L 07/01/20 15 Unknown COMPLETE BLOOD COUNT 5590141 MPV 10.4 fL 5 Unknown COMPLETE BLOOD COUNT 7682737 SUSIE % 72.6 % 5 Unknown COMPLETE BLOOD COUNT 7263379 LY % 14.1 % 5 Unknown COMPLETE BLOOD COUNT 8518810 MON % 10.2 % 5 Unknown COMPLETE BLOOD COUNT 4900748 EOS % 2.6 % 5 Unknown COMPLETE BLOOD COUNT 4149093 BASO % 0.5 % 5 Unknown COMPLETE BLOOD COUNT 2175406 RDW 14.1 % 5 Unknown COMPLETE BLOOD COUNT 7241968 ABS SUSIE 4.79 10e9/L 015 Unknown COMPLETE BLOOD COUNT 8995586 ABS LYMPH 0.93 10e9/L 015 Unknown COMPLETE BLOOD COUNT 5628396 ABS MONO 0.67 10e9/L 015 Unknown COMPLETE BLOOD COUNT 2644960 ABS EOS 0.17 10e9/L 015 Unknown COMPLETE BLOOD COUNT 8167293 ABS BASO 0.03 10e9/L 015 Unknown COMPLETE BLOOD COUNT 6790905 RDW-SD 43.9 fL 5 Unknown PSA EQUIMOLAR JONATAN 72300 PSA EQ 0.73 NG/ML 5 Unknown COMPREHENSIVE METABOLIC 99407 AST 24 U/L 2014 Unknown COMPREHENSIVE METABOLIC 45712 ALT 26 IU/L 2014 Unknown COMPREHENSIVE METABOLIC 26339 BUN 26 MG/DL 2014 Unknown COMPREHENSIVE METABOLIC 07574 ALBUMIN 4.6 GM/DL 2014 Unknown COMPREHENSIVE METABOLIC 05331 CHLORIDE 102 MMOL/L 06/01 Unknown COMPREHENSIVE METABOLIC 76444 BILI TOT 0.5 MG/DL 2014 Unknown COMPREHENSIVE METABOLIC 65487 ALK PHOS 56 U/L 2014 Unknown COMPREHENSIVE METABOLIC 83833 SODIUM 136 MMOL/L 06/01 Unknown COMPREHENSIVE METABOLIC 97947 CREATININE 1.16 MG/DL 04/2015 Unknown COMPREHENSIVE METABOLIC 84084 CALCIUM 9.8 MG/DL 2014 Unknown COMPREHENSIVE METABOLIC 23204 POTASSIUM 4.6 MMOL/L 06/01 Unknown COMPREHENSIVE METABOLIC 39119 PROT TOT 7.4 GM/DL 2014 Unknown COMPREHENSIVE METABOLIC 81560 Glucose 223 MG/DL 2014 Unknown COMPREHENSIVE METABOLIC 99470 BICARB 27 MMOL/L 2014 Unknown COMPREHENSIVE METABOLIC 89463 ANION GAP 7 MEQ/L 2014 Unknown GFR CALC 6829723 GFR AA >60 ML/MIN 06/01/2015 Unknown GFR CALC 6479631 GFR NON-AA >60 ML/MIN 06/01/2015 Unknown GLYCOSYLATED HEMOGLOBIN TEST 76431 A1C HPLC 80347-8 8.9 % 0 06/01/2015 Unknown GFR CALC 5000896 GFR AA >60 ML/MIN 02/25/2015 Unknown GFR CALC 3133210 GFR NON-AA >60 ML/MIN 02/25/2015 Unknown COMPREHENSIVE METABOLIC 92404 AST 24 U/L 2014 Unknown COMPREHENSIVE METABOLIC 17664 ALT 25 IU/L 2014 Unknown COMPREHENSIVE METABOLIC 27171 BUN 14 MG/DL 2014 Unknown COMPREHENSIVE METABOLIC 01068 ALBUMIN 4.5 GM/DL 2014 Unknown COMPREHENSIVE METABOLIC 88427 CHLORIDE 99 MMOL/L 2014 Unknown COMPREHENSIVE METABOLIC 91306 BILI TOT 0.5 MG/DL 2014 Unknown COMPREHENSIVE METABOLIC 86026 ALK PHOS 48 U/L 2014 Unknown COMPREHENSIVE METABOLIC 11052 SODIUM 136 MMOL/L 02/25 Unknown COMPREHENSIVE METABOLIC 80948 CREATININE 0.97 MG/DL 12/2014 Unknown COMPREHENSIVE METABOLIC 42988 CALCIUM 9.9 MG/DL 2014 Unknown COMPREHENSIVE METABOLIC 07999 POTASSIUM 4.4 MMOL/L 02/25 Unknown COMPREHENSIVE METABOLIC 34312 PROT TOT 7.1 GM/DL 2014 Unknown COMPREHENSIVE METABOLIC 75472 Glucose 171 MG/DL 2014 Unknown COMPREHENSIVE METABOLIC 00441 BICARB 25 MMOL/L 2014 Unknown COMPREHENSIVE METABOLIC 69639 ANION GAP 12 MEQ/L 2014 Unknown PROTEIN/CREAT URINE WITH RATIO 80912|32667 PROT R U 19 MG/D L 08/27/2014 Unknown PROTEIN/CREAT URINE WITH RATIO 39396|54252 CREAT R U 111 MG/ DL 08/27/2014 Unknown PROTEIN/CREAT URINE WITH RATIO 73024|51668 XRATIO P/C 171 MG /G 08/27/2014 Unknown MICROALBUMIN URINE RANDOM 67688 MICRL MG/L 34.7 MG/L 12/2013 Unknown MICROALBUMIN URINE RANDOM 27813 XM.ALB/CRE 32.7 MG/GCR 1 10/28/2013 Unknown MICROALBUMIN URINE RANDOM 95641 CREAT MG/D 106 MG/DL 12/2013 Unknown MICROALBUMIN URINE RANDOM 89996 CRE/100 1.06 G/L 12/2013 Unknown COMPLETE BLOOD COUNT 6002756 WBC 7.1 10e9/L 08/05/20 14 Unknown COMPLETE BLOOD COUNT 9096048 RBC 4.35 10e12/L 2013 Unknown COMPLETE BLOOD COUNT 7858725 HGB 12.9 g/dL 4 Unknown COMPLETE BLOOD COUNT 8238439 HCT DET 39.4 % 4 Unknown COMPLETE BLOOD COUNT 5309051 MCV 90.6 fL 4 Unknown COMPLETE BLOOD COUNT [id number] MCH 29.7 pg 4 Unknown COMPLETE BLOOD COUNT 8489145 MCHC 32.7 g/dL 4 Unknown COMPLETE BLOOD COUNT 6056867 PLT 240 10e9/L 08/05/20 14 Unknown COMPLETE BLOOD COUNT 6345011 MPV 10.3 fL 4 Unknown COMPLETE BLOOD COUNT [id number] SUSIE % 70.0 % 4 Unknown COMPLETE BLOOD COUNT [id number] LY % 16.4 % 4 Unknown COMPLETE BLOOD COUNT [id number] MON % 9.2 % 4 Unknown COMPLETE BLOOD COUNT [id number] EOS % 3.8 % 4 Unknown COMPLETE BLOOD COUNT [id number] BASO % 0.6 % 4 Unknown COMPLETE BLOOD COUNT [id number] RDW 13.4 % 4 Unknown COMPLETE BLOOD COUNT [id number] ABS SUSIE 4.97 10e9/L 014 Unknown COMPLETE BLOOD COUNT [id number] ABS LYMPH 1.16 10e9/L 014 Unknown COMPLETE BLOOD COUNT [id number] ABS MONO 0.65 10e9/L 014 Unknown COMPLETE BLOOD COUNT [id number] ABS EOS 0.27 10e9/L 014 Unknown COMPLETE BLOOD COUNT [id number] ABS BASO 0.04 10e9/L 014 Unknown COMPLETE BLOOD COUNT [id number] RDW-SD 43.3 fL 4 Unknown FREE T4 67411 FREE T4 1.02 NG/DL 08/05/2014 Unknown GFR CALC 9062155 GFR AA >60 ML/MIN 08/05/2014 Unknown GFR CALC 5460443 GFR NON-AA >60 ML/MIN 08/05/2014 Unknown GLYCOSYLATED HEMOGLOBIN TEST 30041 A1C HPLC 30849-4 7.7 % 1 10/05/2013 Unknown COMPREHENSIVE METABOLIC 91440 AST 19 U/L 2013 Unknown COMPREHENSIVE METABOLIC 17469 ALT 21 IU/L 2013 Unknown COMPREHENSIVE METABOLIC 96909 BUN 25 MG/DL 2013 Unknown COMPREHENSIVE METABOLIC 90623 ALBUMIN 4.6 GM/DL 2013 Unknown COMPREHENSIVE METABOLIC 61369 CHLORIDE 103 MMOL/L 08/05 Unknown COMPREHENSIVE METABOLIC 81127 BILI TOT 0.4 MG/DL 2013 Unknown COMPREHENSIVE METABOLIC 28549 ALK PHOS 45 U/L 2013 Unknown COMPREHENSIVE METABOLIC 99474 SODIUM 138 MMOL/L 08/05 Unknown COMPREHENSIVE METABOLIC 91771 CREATININE 1.01 MG/DL 07/25 Unknown COMPREHENSIVE METABOLIC 20745 CALCIUM 9.8 MG/DL 2013 Unknown COMPREHENSIVE METABOLIC 69610 POTASSIUM 4.7 MMOL/L 08/05 Unknown COMPREHENSIVE METABOLIC 05338 PROT TOT 7.0 GM/DL 2013 Unknown COMPREHENSIVE METABOLIC 94029 Glucose 145 MG/DL 2013 Unknown COMPREHENSIVE METABOLIC 22435 BICARB 27 MMOL/L 2013 Unknown COMPREHENSIVE METABOLIC 41794 ANION GAP 8 MEQ/L 2013 Unknown THYROID STIMULATING HORMONE 42017 TSH 1.922 uIU/ML 08/05/2014 Unknown LIPID GROUP 62005 HDL TEST 47 MG/DL 08/05/2014 Unknown LIPID GROUP 97028 TRIG 224 MG/DL 08/05/2014 Unknown LIPID GROUP 24216 TEST LDL 125 MG/DL 08/05/2014 Unknown LIPID GROUP 54228 CHOL 217 MG/DL 08/05/2014 Unknown LIPID GROUP 48656 RCHOL/HDL 4.62 RATIO 08/05/2014 Unknow n LIPID GROUP 70942 NON-HDL CH 170 MG/DL 08/05/2014 Unknow n MYCOPLASMA ANTIBODY, IFA [id number] MYCO G IFA 1:256 03/24 Unknown MYCOPLASMA ANTIBODY, IFA [id number] MYCO M IFA <1:10 03/24 Unknown MYCOPLASMA ANTIBODY, IFA [id number] MYCO INTER SEE BELO 03/24 Unknown COMPLETE BLOOD COUNT [id number] WBC 8.3 10e9/L 04/09/20 13 Unknown COMPLETE BLOOD COUNT [id number] RBC 4.61 10e12/L 2012 Unknown COMPLETE BLOOD COUNT 4509205 HGB 13.9 g/dL 3 Unknown COMPLETE BLOOD COUNT [id number] HCT DET 41.2 % 3 Unknown COMPLETE BLOOD COUNT [id number] MCV 89.4 fL 3 Unknown COMPLETE BLOOD COUNT [id number] MCH 30.2 pg 3 Unknown COMPLETE BLOOD COUNT 8632777 MCHC 33.7 g/dL 3 Unknown COMPLETE BLOOD COUNT 4645998 PLT 249 10e9/L 04/09/20 13 Unknown COMPLETE BLOOD COUNT [id number] MPV 9.8 fL 3 Unknown COMPLETE BLOOD COUNT 1848815 SUSIE % 65.9 % 3 Unknown COMPLETE BLOOD COUNT 2015113 LY % 19.8 % 3 Unknown COMPLETE BLOOD COUNT 8127484 MON % 10.8 % 3 Unknown COMPLETE BLOOD COUNT [id number] EOS % 3.0 % 3 Unknown COMPLETE BLOOD COUNT 5134013 BASO % 0.5 % 3 Unknown COMPLETE BLOOD COUNT 0400283 RDW 14.0 % 3 Unknown COMPLETE BLOOD COUNT 8954971 ABS SUSIE 5.47 10e9/L 013 Unknown COMPLETE BLOOD COUNT 7595004 ABS LYMPH 1.64 10e9/L 013 Unknown COMPLETE BLOOD COUNT 5659103 ABS MONO 0.90 10e9/L 013 Unknown COMPLETE BLOOD COUNT [id number] ABS EOS 0.25 10e9/L 013 Unknown COMPLETE BLOOD COUNT [id number] ABS BASO 0.04 10e9/L 013 Unknown COMPLETE BLOOD COUNT [id number] RDW-SD 45.0 fL 3 Unknown URIC ACID 42677 URIC ACID 5.3 MG/DL 02/12/2013 Unknown FREE T4 83197 FREE T4 1.09 NG/DL 02/11/2013 Unknown COMPLETE BLOOD COUNT [id number] WBC 6.3 10e9/L 02/12/20 13 Unknown COMPLETE BLOOD COUNT [id number] RBC 4.29 10e12/L 2012 Unknown COMPLETE BLOOD COUNT 4306681 HGB 13.1 g/dL 3 Unknown COMPLETE BLOOD COUNT [id number] HCT DET 39.7 % 3 Unknown COMPLETE BLOOD COUNT 1087193 MCV 92.5 fL 3 Unknown COMPLETE BLOOD COUNT [id number] MCH 30.5 pg 3 Unknown COMPLETE BLOOD COUNT [id number] MCHC 33.0 g/dL 3 Unknown COMPLETE BLOOD COUNT 1417006 PLT 247 10e9/L 02/12/20 13 Unknown COMPLETE BLOOD COUNT 1878880 MPV 10.0 fL 3 Unknown COMPLETE BLOOD COUNT [id number] SUSIE % 73.4 % 3 Unknown COMPLETE BLOOD COUNT 1604156 LY % 13.5 % 3 Unknown COMPLETE BLOOD COUNT 3989374 MON % 9.4 % 3 Unknown COMPLETE BLOOD COUNT 3157210 EOS % 2.9 % 3 Unknown COMPLETE BLOOD COUNT 3642015 BASO % 0.8 % 3 Unknown COMPLETE BLOOD COUNT 6588468 RDW 13.8 % 3 Unknown COMPLETE BLOOD COUNT [id number] ABS SUSIE 4.62 10e9/L 013 Unknown COMPLETE BLOOD COUNT 7412752 ABS LYMPH 0.85 10e9/L 013 Unknown COMPLETE BLOOD COUNT [id number] ABS MONO 0.59 10e9/L 013 Unknown COMPLETE BLOOD COUNT 5758882 ABS EOS 0.18 10e9/L 013 Unknown COMPLETE BLOOD COUNT [id number] ABS BASO 0.05 10e9/L 013 Unknown COMPLETE BLOOD COUNT 3062737 RDW-SD 45.7 fL 3 Unknown HEMOGLOBIN A1C (GLYCOSYLATED) 8113293 A1C HPLC 33730-0 7.5 % 02/11/2013 Unknown THYROID STIMULATING HORMONE 91235 TSH 1.466 uIU/ML 02/11/2013 Unknown VITAMIN B 12 FOLIC ACID 61843|83943 VIT B 12 625 PG/ML 01/23 Unknown VITAMIN B 12 FOLIC ACID 55846|93637 FOLIC ACID 15.6 NG/ML Unknown COMPREHENSIVE METABOLIC 82103 AST 18 U/L 2012 Unknown COMPREHENSIVE METABOLIC 80935 ALT 21 IU/L 2012 Unknown COMPREHENSIVE METABOLIC 42611 BUN 25 MG/DL 2012 Unknown COMPREHENSIVE METABOLIC 72791 ALBUMIN 4.6 GM/DL 2012 Unknown COMPREHENSIVE METABOLIC 10814 CHLORIDE 103 MMOL/L 02/11 Unknown COMPREHENSIVE METABOLIC 63461 BILI TOT 0.3 MG/DL 2012 Unknown COMPREHENSIVE METABOLIC 44552 ALK PHOS 53 U/L 2012 Unknown COMPREHENSIVE METABOLIC 86039 SODIUM 136 MMOL/L 02/11 Unknown COMPREHENSIVE METABOLIC 90238 CREATININE 1.16 MG/DL 01/23 Unknown COMPREHENSIVE METABOLIC 51365 CALCIUM 10.0 MG/DL 02/11 Unknown COMPREHENSIVE METABOLIC 85342 POTASSIUM 4.9 MMOL/L 02/11 Unknown COMPREHENSIVE METABOLIC 52178 PROT TOT 7.0 GM/DL 2012 Unknown COMPREHENSIVE METABOLIC 50422 Glucose 192 MG/DL 2012 Unknown COMPREHENSIVE METABOLIC 24876 BICARB 26 MMOL/L 2012 Unknown COMPREHENSIVE METABOLIC 67983 ANION GAP 7 MEQ/L 2012 Unknown GFR CALC 6658291 GFR AA >60 ML/MIN 02/11/2013 Unknown GFR CALC 2269985 GFR NON-AA >60 ML/MIN 02/11/2013 Unknown C-REACTIVE PROTEIN (CRP) QUANT 14151 CRP 2.7 MG/DL 02/11/2013 Unknown GFR CALC 5457039 GFR AA >60 ML/MIN 09/19/2012 Unknown GFR CALC 6613803 GFR NON-AA >60 ML/MIN 09/19/2012 Unknown HEMOGLOBIN A1C (GLYCOSYLATED) 8252995 A1C HPLC 74782-8 7.2 % 09/19/2012 Unknown COMPREHENSIVE METABOLIC 40726 AST 13 U/L 2011 Unknown COMPREHENSIVE METABOLIC 07511 ALT 17 IU/L 2011 Unknown COMPREHENSIVE METABOLIC 83526 BUN 25 MG/DL 2011 Unknown COMPREHENSIVE METABOLIC 73478 ALBUMIN 4.5 GM/DL 2011 Unknown COMPREHENSIVE METABOLIC 50272 CHLORIDE 104 MMOL/L 09/19 Unknown COMPREHENSIVE METABOLIC 80242 BILI TOT 0.3 MG/DL 2011 Unknown COMPREHENSIVE METABOLIC 23706 ALK PHOS 43 U/L 2011 Unknown COMPREHENSIVE METABOLIC 19188 SODIUM 139 MMOL/L 09/19 Unknown COMPREHENSIVE METABOLIC 72349 CREATININE 1.10 MG/DL 08/25 Unknown COMPREHENSIVE METABOLIC 22705 CALCIUM 9.8 MG/DL 2011 Unknown COMPREHENSIVE METABOLIC 48574 POTASSIUM 4.8 MMOL/L 09/19 Unknown COMPREHENSIVE METABOLIC 22725 PROT TOT 6.5 GM/DL 2011 Unknown COMPREHENSIVE METABOLIC 71928 Glucose 148 MG/DL 2011 Unknown COMPREHENSIVE METABOLIC 53270 BICARB 25 MMOL/L 2011 Unknown COMPREHENSIVE METABOLIC 73592 ANION GAP 10 MEQ/L 2011 Unknown LIPID GROUP 90172 HDL TEST 44 MG/DL 09/19/2012 Unknown LIPID GROUP 05169 TRIG 318 MG/DL 09/19/2012 Unknown LIPID GROUP 03964 TEST LDL 100 MG/DL 09/19/2012 Unknown LIPID GROUP 69901 CHOL 208 MG/DL 09/19/2012 Unknown LIPID GROUP 85407 RCHOL/HDL 4.73 RATIO 09/19/2012 Unknow n FREE T4 09293 FREE T4 0.87 NG/DL 05/06/2012 Unknown GLYCOSYLATED HEMOGLOBIN TEST 33104 A1C [facility] 22454-2 6.4 % 0 05/06/2012 Unknown LIPID GROUP 12348 HDL TEST 44 MG/DL 05/06/2012 Unknown LIPID GROUP 84205 TRIG 177 MG/DL 05/06/2012 Unknown LIPID GROUP 14027 TEST LDL 113 MG/DL 05/06/2012 Unknown LIPID GROUP 80319 CHOL 192 MG/DL 05/06/2012 Unknown LIPID GROUP 56605 RCHOL/HDL 4.36 RATIO 05/06/2012 Unknow n THYROID STIMULATING HORMONE 12895 TSH 1.151 uIU/ML 05/06/2012 Unknown COMPLETE BLOOD COUNT 75823 WBC 7.8 10e9/L 05/06/20 12 Unknown COMPLETE BLOOD COUNT 39517 RBC 4.31 10e12/L 2011 Unknown COMPLETE BLOOD COUNT 05234 HGB 12.8 g/dL 2 Unknown COMPLETE BLOOD COUNT 10920 HCT DET 39.1 % 2 Unknown COMPLETE BLOOD COUNT 67930 MCV 90.7 fL 2 Unknown COMPLETE BLOOD COUNT 85598 MCH 29.7 pg 2 Unknown COMPLETE BLOOD COUNT 63492 MCHC 32.7 g/dL 2 Unknown COMPLETE BLOOD COUNT 49572 PLT 207 10e9/L 05/06/20 12 Unknown COMPLETE BLOOD COUNT 64592 MPV 10.2 fL 2 Unknown COMPLETE BLOOD COUNT 54217 SUSIE % 74.2 % 2 Unknown COMPLETE BLOOD COUNT 62351 LY % 12.8 % 2 Unknown COMPLETE BLOOD COUNT 45698 MON % 11.0 % 2 Unknown COMPLETE BLOOD COUNT 13618 EOS % 1.7 % 2 Unknown COMPLETE BLOOD COUNT 94979 BASO % 0.3 % 2 Unknown COMPLETE BLOOD COUNT 23752 RDW 13.7 % 2 Unknown COMPLETE BLOOD COUNT 31045 ABS SUSIE 5.79 10e9/L 012 Unknown COMPLETE BLOOD COUNT 88367 ABS LYMPH 1.00 10e9/L 012 Unknown COMPLETE BLOOD COUNT 10952 ABS MONO 0.86 10e9/L 012 Unknown COMPLETE BLOOD COUNT 47429 ABS EOS 0.13 10e9/L 012 Unknown COMPLETE BLOOD COUNT 89423 ABS BASO 0.02 10e9/L 012 Unknown COMPLETE BLOOD COUNT 98740 RDW-SD 44.4 fL 2 Unknown COMPREHENSIVE METABOLIC 17674 AST 13 U/L 2011 Unknown COMPREHENSIVE METABOLIC 78002 ALT 14 IU/L 2011 Unknown COMPREHENSIVE METABOLIC 96876 BUN 17 MG/DL 2011 Unknown COMPREHENSIVE METABOLIC 21999 ALBUMIN 4.5 GM/DL 2011 Unknown COMPREHENSIVE METABOLIC 36022 CHLORIDE 101 MMOL/L 05/06 Unknown COMPREHENSIVE METABOLIC 39468 BILI TOT 0.5 MG/DL 2011 Unknown COMPREHENSIVE METABOLIC 28087 ALK PHOS 42 U/L 2011 Unknown COMPREHENSIVE METABOLIC 59984 SODIUM 141 MMOL/L 05/06 Unknown COMPREHENSIVE METABOLIC 29853 CREATININE 1.02 MG/DL 04/24 Unknown COMPREHENSIVE METABOLIC 09660 CALCIUM 9.7 MG/DL 2011 Unknown COMPREHENSIVE METABOLIC 39189 POTASSIUM 4.6 MMOL/L 05/06 Unknown COMPREHENSIVE METABOLIC 88383 PROT TOT 6.5 GM/DL 2011 Unknown COMPREHENSIVE METABOLIC 25370 Glucose 139 MG/DL 2011 Unknown COMPREHENSIVE METABOLIC 67842 BICARB 29 MMOL/L 2011 Unknown COMPREHENSIVE METABOLIC 28831 ANION GAP 11 MEQ/L 2011 Unknown GFR CALC 1233023 GFR AA >60 ML/MIN 05/06/2012 Unknown GFR CALC 3664088 GFR NON-AA 54.0L ML/MIN 05/06/2012 Unkno wn GLYCOSYLATED HEMOGLOBIN TEST 03716 A1C HPLC 18243-6 6.6 % 1 09/30/2010 Unknown FREE T4 73964 FREE T4 1.00 NG/DL 07/26/2011 Unknown LIPID GROUP 28665 HDL TEST 40 MG/DL 07/26/2011 Unknown LIPID GROUP 03375 TRIG 136 MG/DL 07/26/2011 Unknown LIPID GROUP 61406 TEST LDL 126 MG/DL 07/26/2011 Unknown LIPID GROUP 19329 CHOL 193 MG/DL 07/26/2011 Unknown LIPID GROUP 95723 RCHOL/HDL 4.83 RATIO 07/26/2011 Unknow n COMPREHENSIVE METABOLIC 73703 AST 15 U/L 2010 Unknown COMPREHENSIVE METABOLIC 09876 ALT 13 IU/L 2010 Unknown COMPREHENSIVE METABOLIC 55342 BUN 17 MG/DL 2010 Unknown COMPREHENSIVE METABOLIC 24866 ALBUMIN 4.4 GM/DL 2010 Unknown COMPREHENSIVE METABOLIC 59164 CHLORIDE 102 MMOL/L 07/26 Unknown COMPREHENSIVE METABOLIC 80197 BILI TOT 0.5 MG/DL 2010 Unknown COMPREHENSIVE METABOLIC 39234 ALK PHOS 54 U/L 2010 Unknown COMPREHENSIVE METABOLIC 29486 SODIUM 138 MMOL/L 07/26 Unknown COMPREHENSIVE METABOLIC 29265 CREATININE 0.95 MG/DL 10/2010 Unknown COMPREHENSIVE METABOLIC 35548 CALCIUM 9.3 MG/DL 2010 Unknown COMPREHENSIVE METABOLIC 51937 POTASSIUM 4.3 MMOL/L 07/26 Unknown COMPREHENSIVE METABOLIC 93219 PROT TOT 6.7 GM/DL 2010 Unknown COMPREHENSIVE METABOLIC 96700 Glucose 116 MG/DL 2010 Unknown COMPREHENSIVE METABOLIC 27764 BICARB 28 MMOL/L 2010 Unknown COMPREHENSIVE METABOLIC 85026 ANION GAP 8 MEQ/L 2010 Unknown PSA EQUIMOLAR JONATAN 93360 PSA EQ 1.01 NG/ML 1 Unknown COMPLETE BLOOD COUNT 83172 WBC 6.4 10e9/L 07/26/20 11 Unknown COMPLETE BLOOD COUNT 15248 RBC 4.43 10e12/L 2010 Unknown COMPLETE BLOOD COUNT 97931 HGB 13.2 g/dL 1 Unknown COMPLETE BLOOD COUNT 02547 HCT DET 39.3 % 1 Unknown COMPLETE BLOOD COUNT 17473 MCV 88.7 fL 1 Unknown COMPLETE BLOOD COUNT 73731 MCH 29.8 pg 1 Unknown COMPLETE BLOOD COUNT 23601 MCHC 33.6 g/dL 1 Unknown COMPLETE BLOOD COUNT 25362 PLT 226 10e9/L 07/26/20 11 Unknown COMPLETE BLOOD COUNT 87778 MPV 9.9 fL 1 Unknown COMPLETE BLOOD COUNT 50682 SUSIE % 65.4 % 1 Unknown COMPLETE BLOOD COUNT 34567 LY % 19.7 % 1 Unknown COMPLETE BLOOD COUNT 50302 MON % 10.8 % 1 Unknown COMPLETE BLOOD COUNT 89347 EOS % 3.6 % 1 Unknown COMPLETE BLOOD COUNT 92502 BASO % 0.5 % 1 Unknown COMPLETE BLOOD COUNT 97636 RDW 13.2 % 1 Unknown COMPLETE BLOOD COUNT 36321 ABS SUSIE 4.19 10e9/L 011 Unknown COMPLETE BLOOD COUNT 45684 ABS LYMPH 1.26 10e9/L 011 Unknown COMPLETE BLOOD COUNT 04962 ABS MONO 0.69 10e9/L 011 Unknown COMPLETE BLOOD COUNT 03246 ABS EOS 0.23 10e9/L 011 Unknown COMPLETE BLOOD COUNT 50864 ABS BASO 0.03 10e9/L 011 Unknown COMPLETE BLOOD COUNT 67049 RDW-SD 41.7 fL 1 Unknown THYROID STIMULATING HORMONE 30928 TSH 1.345 uIU/ML 07/26/2011 Unknown GFR CALC 8514854 GFR AA >60 ML/MIN 07/26/2011 Unknown GFR CALC 6280676 GFR NON-AA >60 ML/MIN 07/26/2011 Unknown BRAIN NATRIURETIC PEPTIDE(BNP) 22435 BRAIN PEP 23 pg/mL 01/19/2011 Unknown CANCEL 1098506 CANCEL FOOTNOTE 01/18/2011 Unknown TESTOSTERONE TOTAL 62059 TESTOS TO 138 NG/DL 12/19/2010 Unknown COMPLETE BLOOD COUNT 65427 WBC 8.4 10e9/L 12/08/19 11 Unknown COMPLETE BLOOD COUNT 56025 RBC 4.40 10e12/L 2010 Unknown COMPLETE BLOOD COUNT 10016 HGB 13.3 g/dL 1 Unknown COMPLETE BLOOD COUNT 46822 HCT DET 39.8 % 1 Unknown COMPLETE BLOOD COUNT 77706 MCV 90.5 fL 1 Unknown COMPLETE BLOOD COUNT 42969 MCH 30.2 pg 1 Unknown COMPLETE BLOOD COUNT 52154 MCHC 33.4 g/dL 1 Unknown COMPLETE BLOOD COUNT 86683 PLT 201 10e9/L 12/08/19 11 Unknown COMPLETE BLOOD COUNT 67160 MPV 10.6 fL 1 Unknown COMPLETE BLOOD COUNT 17391 SUSIE % 72.5 % 1 Unknown COMPLETE BLOOD COUNT 62321 LY % 14.8 % 1 Unknown COMPLETE BLOOD COUNT 43824 MON % 10.6 % 1 Unknown COMPLETE BLOOD COUNT 98587 EOS % 1.7 % 1 Unknown COMPLETE BLOOD COUNT 82630 BASO % 0.4 % 1 Unknown COMPLETE BLOOD COUNT 94583 RDW 13.7 % 1 Unknown COMPLETE BLOOD COUNT 59275 ABS SUSIE 6.09 10e9/L 011 Unknown COMPLETE BLOOD COUNT 60292 ABS LYMPH 1.24 10e9/L 011 Unknown COMPLETE BLOOD COUNT 01026 ABS MONO 0.89 10e9/L 011 Unknown COMPLETE BLOOD COUNT 44628 ABS EOS 0.14 10e9/L 011 Unknown COMPLETE BLOOD COUNT 09523 ABS BASO 0.03 10e9/L 011 Unknown COMPLETE BLOOD COUNT 27573 RDW-SD 44.0 fL 1 Unknown LIPID GROUP 43843 HDL TEST 40 MG/DL 12/07/2010 Unknown LIPID GROUP 92409 TRIG 383 MG/DL 12/07/2010 Unknown LIPID GROUP 30417 TEST LDL 82 MG/DL 12/07/2010 Unknown LIPID GROUP 60899 CHOL 199 MG/DL 12/07/2010 Unknown LIPID GROUP 18864 RCHOL/HDL 4.98 RATIO 12/07/2010 Unknow n GFR CALC 8004694 GFR AA >60 ML/MIN 12/07/2010 Unknown GFR CALC 2365723 GFR NON-AA >60 ML/MIN 12/07/2010 Unknown COMPREHENSIVE METABOLIC 06391 AST 29 U/L 2010 Unknown COMPREHENSIVE METABOLIC 25503 ALT 39 IU/L 2010 Unknown COMPREHENSIVE METABOLIC 61980 BUN 17 MG/DL 2010 Unknown COMPREHENSIVE METABOLIC 15176 ALBUMIN 4.9 GM/DL 2010 Unknown COMPREHENSIVE METABOLIC 45496 CHLORIDE 100 MMOL/L 12/07 Unknown COMPREHENSIVE METABOLIC 33088 BILI TOT 0.3 MG/DL 2010 Unknown COMPREHENSIVE METABOLIC 60276 ALK PHOS 53 U/L 2010 Unknown COMPREHENSIVE METABOLIC 81964 SODIUM 137 MMOL/L 12/07 Unknown COMPREHENSIVE METABOLIC 47773 CREATININE 0.98 MG/DL 11/22 Unknown COMPREHENSIVE METABOLIC 12643 CALCIUM 9.5 MG/DL 2010 Unknown COMPREHENSIVE METABOLIC 43501 POTASSIUM 4.3 MMOL/L 12/07 Unknown COMPREHENSIVE METABOLIC 43242 PROT TOT 6.6 GM/DL 2010 Unknown COMPREHENSIVE METABOLIC 37705 Glucose 176 MG/DL 2010 Unknown COMPREHENSIVE METABOLIC 54350 BICARB 28 MMOL/L 2010 Unknown COMPREHENSIVE METABOLIC 69999 ANION GAP 9 MEQ/L 2010 Unknown PSA EQUIMOLAR JONATAN 71896 PSA EQ 0.65 NG/ML 1 Unknown HEMOGLOBIN A1C (GLYCOSYLATED) 76422 A1C HPLC 31678-9 6.9 % 12/07/2010 Unknown Procedures Procedure Codes Date THER/PROPH/DIAG INJ SC/IM CPT-4: 07216 12/25/2019 METHYLPREDNISOLONE INJECTION CPT-4: J2930 12/25/2019 FLU VACC PRSV FREE INC ANTIG 65 AND OLDER CPT-4: 54425 08/07/2019 FLU VACC PRSV FREE INC ANTIG 65 AND OLDER CPT-4: 62313 08/07/2019 ADMIN INFLUENZA VIRUS VAC CPT-4: G0008 08/07/2019 THER/PROPH/DIAG INJ SC/IM CPT-4: 96273 07/14/2019 METHYLPREDNISOLONE INJECTION CPT-4: J2930 07/14/2019 ROUTINE VENIPUNCTURE CPT-4: 57778 06/17/2019 ASSAY THYROID STIM HORMONE CPT-4: 02349 06/17/2019 COMPREHEN METABOLIC PANEL CPT-4: 04271 06/17/2019 COMPLETE CBC W/AUTO DIFF WBC CPT-4: 55818 06/17/2019 ASSAY OF IRON CPT-4: 73360 06/17/2019 VITAMIN B-12 CPT-4: 98696 06/17/2019 RBC SED RATE AUTOMATED CPT-4: 68847 06/17/2019 THER/PROPH/DIAG INJ SC/IM CPT-4: 03177 06/10/2019 THER/PROPH/DIAG INJ SC/IM CPT-4: 78371 06/02/2019 THER/PROPH/DIAG INJ SC/IM CPT-4: 81723 05/27/2019 THER/PROPH/DIAG INJ SC/IM CPT-4: 58053 05/12/2019 ROUTINE VENIPUNCTURE CPT-4: 12602 05/08/2019 COMPREHEN METABOLIC PANEL CPT-4: 85986 05/08/2019 COMPLETE CBC W/AUTO DIFF WBC CPT-4: 71355 05/08/2019 A1C HPLC CPT-4: 73825 05/08/2019 VITAMIN D TOTAL (25 HYDROXY) CPT-4: 59632 05/08/2019 ASSAY OF IRON CPT-4: 92032 05/08/2019 ASSAY OF FERRITIN CPT-4: 39943 05/08/2019 VITAMIN B-12 CPT-4: 95997 05/08/2019 THER/PROPH/DIAG INJ SC/IM CPT-4: 34527 03/21/2019 METHYLPREDNISOLONE INJECTION CPT-4: J2930 03/21/2019 THER/PROPH/DIAG INJ SC/IM CPT-4: 69543 03/13/2019 METHYLPREDNISOLONE INJECTION CPT-4: J2930 03/13/2019 THER/PROPH/DIAG INJ SC/IM CPT-4: 51824 12/25/2018 METHYLPREDNISOLONE INJECTION CPT-4: J2930 12/25/2018 ROUTINE VENIPUNCTURE CPT-4: 26126 12/09/2018 ASSAY OF FREE THYROXINE CPT-4: 25475 12/09/2018 ASSAY THYROID STIM HORMONE CPT-4: 99581 12/09/2018 COMPREHEN METABOLIC PANEL CPT-4: 34663 12/09/2018 COMPLETE CBC W/AUTO DIFF WBC CPT-4: 55303 12/09/2018 LIPID PANEL CPT-4: 73845 12/09/2018 A1C HPLC CPT-4: 35906 12/09/2018 PRESCRIP TRANSMIT VIA ERX SY CPT-4: G8553 08/21/2018 PRESCRIP TRANSMIT VIA ERX SY CPT-4: G8553 08/07/2018 THER/PROPH/DIAG INJ SC/IM CPT-4: 27311 05/23/2018 METHYLPREDNISOLONE INJECTION CPT-4: J2930 05/23/2018 PRESCRIP TRANSMIT VIA ERX SY CPT-4: G8553 05/02/2018 THER/PROPH/DIAG INJ SC/IM CPT-4: 33403 04/29/2018 METHYLPREDNISOLONE INJECTION CPT-4: J2930 04/29/2018 DEXAMETHASONE SODIUM PHOS CPT-4: J1100 04/22/2018 THER/PROPH/DIAG INJ SC/IM CPT-4: 62081 04/22/2018 TRIAMCINOLONE ACET INJ NOS CPT-4: J3301 04/22/2018 PRESCRIP TRANSMIT VIA ERX SY CPT-4: G8553 04/22/2018 PRESCRIP TRANSMIT VIA ERX SY CPT-4: G8553 01/23/2018 URINALYSIS NONAUTO W/O SCOPE CPT-4: 64810 01/02/2018 URINE CULTURE/ COLONY COUNT CPT-4: 61291 01/02/2018 PRESCRIP TRANSMIT VIA ERX SY CPT-4: G8553 01/02/2018 PRESCRIP TRANSMIT VIA ERX SY CPT-4: G8553 12/28/2017 PRESCRIP TRANSMIT VIA ERX SY CPT-4: G8553 12/21/2017 CEFTRIAXONE SODIUM INJECTION CPT-4: J0696 12/17/2017 THER/PROPH/DIAG INJ SC/IM CPT-4: 14319 12/17/2017 THER/PROPH/DIAG INJ SC/IM CPT-4: 35252 12/17/2017 TRIAMCINOLONE ACET INJ NOS CPT-4: J3301 12/17/2017 PRESCRIP TRANSMIT VIA ERX SY CPT-4: G8553 12/17/2017 DRAIN/INJECT JOINT/BURSA CPT-4: 32507 12/11/2017 TRIAMCINOLONE ACET INJ NOS CPT-4: J3301 12/11/2017 DEXAMETHASONE SODIUM PHOS CPT-4: J1100 12/11/2017 DESTRUCT PREMALG LESION (Cryosurgery) CPT-4: 88538 PRESCRIP TRANSMIT VIA ERX SY CPT-4: G8553 10/17/2017 DEXAMETHASONE SODIUM PHOS CPT-4: J1100 08/02/2017 THER/PROPH/DIAG INJ SC/IM CPT-4: 37393 08/02/2017 TRIAMCINOLONE ACET INJ NOS CPT-4: J3301 08/02/2017 PRESCRIP TRANSMIT VIA ERX SY CPT-4: G8553 08/02/2017 PNEUMOCOCCAL VACC 23 OLIVIA IM CPT-4: 38484 07/24/2017 ADMIN PNEUMOCOCCAL VACCINE CPT-4: G0009 07/24/2017 ALBUTEROL NON-COMP UNIT CPT-4: J7613 07/02/2017 AIRWAY INHALATION TREATMENT CPT-4: 80268 07/02/2017 THER/PROPH/DIAG INJ SC/IM CPT-4: 91073 07/02/2017 METHYLPREDNISOLONE INJECTION CPT-4: J2930 07/02/2017 PRESCRIP TRANSMIT VIA ERX SY CPT-4: G8553 05/29/2017 ROUTINE VENIPUNCTURE CPT-4: 03897 04/17/2017 ASSAY OF IRON CPT-4: 63187 04/17/2017 VITAMIN B-12 CPT-4: 42259 04/17/2017 COMPREHEN METABOLIC PANEL CPT-4: 05234 04/17/2017 COMPLETE CBC W/AUTO DIFF WBC CPT-4: 68447 04/17/2017 ASSAY OF FERRITIN CPT-4: 81151 04/17/2017 ASSAY THYROID STIM HORMONE CPT-4: 45541 04/17/2017 A1C HPLC CPT-4: 65268 04/17/2017 DRAIN/INJECT JOINT/BURSA CPT-4: 08301 02/01/2017 TRIAMCINOLONE ACET INJ NOS CPT-4: J3301 02/01/2017 DEXAMETHASONE SODIUM PHOS CPT-4: J1100 02/01/2017 ROUTINE VENIPUNCTURE CPT-4: 46880 12/27/2016 COMPLETE CBC W/AUTO DIFF WBC CPT-4: 64596 12/27/2016 ROUTINE VENIPUNCTURE CPT-4: 41023 12/21/2016 COMPLETE CBC W/AUTO DIFF WBC CPT-4: 67089 12/21/2016 ROUTINE VENIPUNCTURE CPT-4: 10679 12/12/2016 COMPLETE CBC W/AUTO DIFF WBC CPT-4: 81210 12/12/2016 PRESCRIP TRANSMIT VIA ERX SY CPT-4: G8553 10/31/2016 PRESCRIP TRANSMIT VIA ERX SY CPT-4: G8553 10/03/2016 PRESCRIP TRANSMIT VIA ERX SY CPT-4: G8553 09/04/2016 DESTRUCT PREMALG LESION (Cryosurgery) CPT-4: 64972 DESTRUCT PREMALG LES 2-14 CPT-4: 27222 08/22/2016 PRESCRIP TRANSMIT VIA ERX SY CPT-4: G8553 08/10/2016 PRESCRIP TRANSMIT VIA ERX SY CPT-4: G8553 07/06/2016 FLU VACC PRSV FREE INC ANTIG 65 AND OLDER CPT-4: 86345 06/13/2016 PNEUMOCOCCAL VACC 13 OLIVIA IM CPT-4: 88048 06/13/2016 ADMIN INFLUENZA VIRUS VAC CPT-4: G0008 06/13/2016 ADMIN PNEUMOCOCCAL VACCINE CPT-4: G0009 06/13/2016 CERUM REMOVAL CPT-4: 78338 04/05/2016 PRESCRIP TRANSMIT VIA ERX SY CPT-4: G8553 04/03/2016 ROUTINE VENIPUNCTURE CPT-4: 22140 03/06/2016 ASSAY OF FREE THYROXINE CPT-4: 15588 03/06/2016 ASSAY THYROID STIM HORMONE CPT-4: 34687 03/06/2016 COMPREHEN METABOLIC PANEL CPT-4: 02953 03/06/2016 COMPLETE CBC W/AUTO DIFF WBC CPT-4: 45331 03/06/2016 LIPID PANEL CPT-4: 91308 03/06/2016 ASSAY OF PSA TOTAL CPT-4: 81846 03/06/2016 TESTOSTERONE TOTAL - MALE CPT-4: 97959 03/06/2016 A1C HPLC CPT-4: 74056 03/06/2016 ASSAY OF IRON CPT-4: 90349 03/06/2016 VITAMIN B-12 CPT-4: 75516 03/06/2016 INJ TENDON SHEATH/LIGAMENT CPT-4: 68152 02/17/2016 TRIAMCINOLONE ACET INJ NOS CPT-4: J3301 02/17/2016 DEXAMETHASONE SODIUM PHOS CPT-4: J1100 02/17/2016 PRESCRIP TRANSMIT VIA ERX SY CPT-4: G8553 01/31/2016 PRESCRIP TRANSMIT VIA ERX SY CPT-4: G8553 12/30/2015 PRESCRIP TRANSMIT VIA ERX SY CPT-4: G8553 12/06/2015 PRESCRIP TRANSMIT VIA ERX SY CPT-4: G8553 11/15/2015 PPPS, subseq visit CPT-4: G0439 10/05/2015 MICROALBUMIN QUANTITATIVE CPT-4: 88158 10/05/2015 PROTEIN/CREAT URINE WITH RATIO CPT-4: 59082|92163 6 ROUTINE VENIPUNCTURE CPT-4: 75155 07/01/2015 ASSAY OF FREE THYROXINE CPT-4: 20660 07/01/2015 ASSAY THYROID STIM HORMONE CPT-4: 90267 07/01/2015 COMPLETE CBC W/AUTO DIFF WBC CPT-4: 33507 07/01/2015 LIPID PANEL CPT-4: 50982 07/01/2015 ASSAY OF PSA TOTAL CPT-4: 67993 07/01/2015 AEROBIC WOUND CULTURE & STN CPT-4: 35082 06/28/2015 PRESCRIP TRANSMIT VIA ERX SY CPT-4: G8553 06/28/2015 AEROBIC WOUND CULTURE & STN CPT-4: 17435 06/03/2015 PRESCRIP TRANSMIT VIA ERX SY CPT-4: G8553 06/03/2015 ROUTINE VENIPUNCTURE CPT-4: 24112 06/01/2015 COMPREHEN METABOLIC PANEL CPT-4: 53304 06/01/2015 A1C HPLC CPT-4: 86625 06/01/2015 COMPREHEN METABOLIC PANEL CPT-4: 10678 02/25/2015 A1C HPLC CPT-4: 23605 02/25/2015 DESTRUCT PREMALG LESION (Cryosurgery) CPT-4: 65492 PROTEIN/CREAT URINE WITH RATIO CPT-4: 28502|00640 5 MICROALBUMIN QUANTITATIVE CPT-4: 55157 10/27/2014 INFLUENZA ASSAY W/OPTIC CPT-4: 19907 10/21/2014 PRESCRIP TRANSMIT VIA ERX SY CPT-4: G8553 10/06/2014 PRESCRIP TRANSMIT VIA ERX SY CPT-4: G8553 09/21/2014 PRESCRIP TRANSMIT VIA ERX SY CPT-4: G8553 09/02/2014 MICROALBUMIN QUANTITATIVE CPT-4: 71809 08/27/2014 PROTEIN/CREAT URINE WITH RATIO CPT-4: 55255|29378 4 PPPS, subseq visit CPT-4: G0439 08/10/2014 ROUTINE VENIPUNCTURE CPT-4: 09474 08/05/2014 ASSAY OF FREE THYROXINE CPT-4: 78699 08/05/2014 ASSAY THYROID STIM HORMONE CPT-4: 84182 08/05/2014 COMPREHEN METABOLIC PANEL CPT-4: 07914 08/05/2014 COMPLETE CBC W/AUTO DIFF WBC CPT-4: 08555 08/05/2014 LIPID PANEL CPT-4: 41652 08/05/2014 A1C HPLC CPT-4: 86165 08/05/2014 FLUZONE, 5ML (Medicare) CPT-4: Q2038 08/05/2014 ADMIN INFLUENZA VIRUS VAC CPT-4: G0008 08/05/2014 METHYLPREDNISOLONE 40 MG INJ CPT-4: J1030 12/16/2013 TRIAMCINOLONE ACET INJ NOS CPT-4: J3301 12/16/2013 DRAIN/INJECT JOINT/BURSA CPT-4: 35850 12/16/2013 PRESCRIP TRANSMIT VIA ERX SY CPT-4: G8553 10/09/2013 THER/PROPH/DIAG INJ SC/IM CPT-4: 56838 09/18/2013 METHYLPREDNISOLONE 40 MG INJ CPT-4: J1030 09/18/2013 TRIAMCINOLONE ACET INJ NOS CPT-4: J3301 09/18/2013 PRESCRIP TRANSMIT VIA ERX SY CPT-4: G8553 09/18/2013 PRESCRIP TRANSMIT VIA ERX SY CPT-4: G8553 08/13/2013 ROUTINE VENIPUNCTURE CPT-4: 51735 06/25/2013 ASSAY OF FREE THYROXINE CPT-4: 17527 06/25/2013 ASSAY THYROID STIM HORMONE CPT-4: 44325 06/25/2013 COMPREHEN METABOLIC PANEL CPT-4: 94496 06/25/2013 COMPLETE CBC W/AUTO DIFF WBC CPT-4: 47248 06/25/2013 LIPID PANEL CPT-4: 20016 06/25/2013 A1C GLYCOSYLATED HEMOGLOBIN TEST CPT-4: 07537 013 ROUTINE VENIPUNCTURE CPT-4: 82324 04/09/2013 COMPLETE CBC W/AUTO DIFF WBC CPT-4: 62004 04/09/2013 MYCOPLASMA ANTIBODY, IFA CPT-4: 00847J7 04/09/2013 ROUTINE VENIPUNCTURE CPT-4: 86364 02/11/2013 ASSAY OF FREE THYROXINE CPT-4: 31082 02/11/2013 ASSAY THYROID STIM HORMONE CPT-4: 23748 02/11/2013 COMPREHEN METABOLIC PANEL CPT-4: 45868 02/11/2013 COMPLETE CBC W/AUTO DIFF WBC CPT-4: 16770 02/11/2013 VITAMIN B 12 FOLIC ACID CPT-4: 85880|93324 02/11/2013 C-REACTIVE PROTEIN CPT-4: 47297 02/11/2013 A1C GLYCOSYLATED HEMOGLOBIN TEST CPT-4: 89623 013 ASSAY OF BLOOD/URIC ACID CPT-4: 00321 02/11/2013 CEFTRIAXONE SODIUM INJECTION CPT-4: J0696 01/31/2013 THER/PROPH/DIAG INJ SC/IM CPT-4: 04706 01/31/2013 THER/PROPH/DIAG INJ SC/IM CPT-4: 46018 01/31/2013 METHYLPREDNISOLONE 40 MG INJ CPT-4: J1030 01/31/2013 TRIAMCINOLONE ACET INJ NOS CPT-4: J3301 01/31/2013 ROUTINE VENIPUNCTURE CPT-4: 96924 09/19/2012 COMPREHEN METABOLIC PANEL CPT-4: 09587 09/19/2012 LIPID PANEL CPT-4: 30374 09/19/2012 A1C GLYCOSYLATED HEMOGLOBIN TEST CPT-4: 46813 012 PNEUMOCOCCAL VACC 23 OLIVIA IM CPT-4: 84758 07/10/2012 FLUZONE, 5ML (Medicare) CPT-4: Q2038 07/10/2012 ADMIN INFLUENZA VIRUS VAC CPT-4: G0008 07/10/2012 ADMIN PNEUMOCOCCAL VACCINE CPT-4: G0009 07/10/2012 ROUTINE VENIPUNCTURE CPT-4: 48871 05/06/2012 ASSAY OF FREE THYROXINE CPT-4: 97799 05/06/2012 ASSAY THYROID STIM HORMONE CPT-4: 65334 05/06/2012 COMPREHEN METABOLIC PANEL CPT-4: 25514 05/06/2012 COMPLETE CBC W/AUTO DIFF WBC CPT-4: 44284 05/06/2012 LIPID PANEL CPT-4: 86693 05/06/2012 A1C GLYCOSYLATED HEMOGLOBIN TEST CPT-4: 21684 012 IMMUNIZATION ADMIN CPT-4: 76697 02/05/2012 FLUZONE, 5ML (Medicare) CPT-4: Q2038 08/10/2011 ADMIN INFLUENZA VIRUS VAC CPT-4: G0008 08/10/2011 ROUTINE VENIPUNCTURE CPT-4: 51986 07/26/2011 ASSAY OF FREE THYROXINE CPT-4: 05839 07/26/2011 ASSAY THYROID STIM HORMONE CPT-4: 18510 07/26/2011 COMPREHEN METABOLIC PANEL CPT-4: 26896 07/26/2011 COMPLETE CBC W/AUTO DIFF WBC CPT-4: 35916 07/26/2011 LIPID PANEL CPT-4: 33605 07/26/2011 A1C GLYCOSYLATED HEMOGLOBIN TEST CPT-4: 19820 011 ASSAY OF PSA TOTAL CPT-4: 69289 07/26/2011 ROUTINE VENIPUNCTURE CPT-4: 67825 01/19/2011 ASSAY OF NATRIURETIC PEPTIDE CPT-4: 08489 01/19/2011 THER/PROPH/DIAG INJ SC/IM CPT-4: 22511 01/19/2011 CEFTRIAXONE SODIUM INJECTION CPT-4: J0696 01/19/2011 METHYLPREDNISOLONE INJECTION CPT-4: J2930 01/19/2011 THER/PROPH/DIAG INJ SC/IM CPT-4: 13356 01/19/2011 THER/PROPH/DIAG INJ SC/IM CPT-4: 05358 01/18/2011 CEFTRIAXONE SODIUM INJECTION CPT-4: J0696 01/18/2011 METHYLPREDNISOLONE INJECTION CPT-4: J2930 01/18/2011 THER/PROPH/DIAG INJ SC/IM CPT-4: 51675 01/18/2011 THER/PROPH/DIAG INJ SC/IM CPT-4: 40385 12/21/2010 TESTOSTERONE CYPIONAT 100 MG CPT-4: J1070 12/21/2010 ROUTINE VENIPUNCTURE CPT-4: 83884 12/19/2010 TESTOSTERONE TOTAL - MALE CPT-4: 00379 12/19/2010 ROUTINE VENIPUNCTURE CPT-4: 26261 12/07/2010 COMPLETE CBC W/AUTO DIFF WBC CPT-4: 61092 12/07/2010 COMPREHEN METABOLIC PANEL CPT-4: 06549 12/07/2010 LIPID PANEL CPT-4: 99218 12/07/2010 A1C GLYCOSYLATED HEMOGLOBIN TEST CPT-4: 11984 011 ASSAY OF PSA TOTAL CPT-4: 23493 12/07/2010 ROUTINE VENIPUNCTURE CPT-4: 60531 04/05/2010 PRESCRIP TRANSMIT VIA ERX SY CPT-4: G8553 04/05/2010 ROUTINE VENIPUNCTURE CPT-4: 22553 01/13/2010 METHYLPREDNISOLONE INJECTION CPT-4: J2930 12/22/2009 THER/PROPH/DIAG INJ SC/IM CPT-4: 49265 12/22/2009 THER/PROPH/DIAG INJ SC/IM CPT-4: 85834 12/22/2009 CEFTRIAXONE SODIUM INJECTION CPT-4: J0696 12/22/2009 ROUTINE VENIPUNCTURE CPT-4: 94513 12/22/2009 COMPLETE CBC W/AUTO DIFF WBC CPT-4: 56050 12/22/2009 RBC SED RATE, AUTOMATED CPT-4: 26021 12/22/2009 RPR FE/E/EN/L/M 20.1-30.0 CM CPT-4: 66470 12/22/2009 EKG FOR INITIAL PREVENT EXAM CPT-4: G0403 12/22/2009 THER/PROPH/DIAG INJ SC/IM CPT-4: 57938 12/16/2009 KETOROLAC TROMETHAMINE INJ CPT-4: J1885 12/16/2009 [...] 1: 126/68 Code: 8480-6 BMI: 30.2 Code: 24746-7 Heart Rate 1: 92 bpm Height: 6' Respiratory Rate: 22 bpm SpO2: 94% Tempera ture: 36.9 (C) / 98.5 (F) Weight: 223 lbs 08/21/2018 Blood Pressure 1: 160/70 Code: 8480-6 Heart Rate 1: 79 bpm Respiratory Rate: 20 bpm SpO2: 94% Temperature: 36.7 (C) / 98.0 (F) We ight: 226 lbs 8 oz 08/07/2018 Blood Pressure 1: 138/70 Code: 8480-6 BMI: 30.1 Code: 75665-0 Heart Rate 1: 80 bpm Height: 6' Respiratory Rate: 20 bpm SpO2: 94% Tempera ture: 36.9 (C) / 98.5 (F) Weight: 222 lbs 05/23/2018 Blood Pressure 1: 148/66 Code: 8480-6 BMI: 30.0 Code: 58692-6 Heart Rate 1: 96 bpm Height: 6' Respiratory Rate: 22 bpm SpO2: 94% Tempera ture: 37.3 (C) / 99.1 (F) Weight: 221 lbs 05/02/2018 Blood Pressure 1: 146/78 Code: 8480-6 BMI: 29.6 Code: 79575-5 Heart Rate 1: 78 bpm Height: 6' Respiratory Rate: 26 bpm SpO2: 94% Tempera ture: 35.7 (C) / 96.2 (F) Weight: 218 lbs 04/29/2018 Blood Pressure 1: 142/62 Code: 8480-6 BMI: 28.6 Code: 37843-2 Heart Rate 1: 82 bpm Height: 6' Respiratory Rate: 22 bpm SpO2: 98% Tempera ture: 36.4 (C) / 97.6 (F) Weight: 211 lbs 04/22/2018 Blood Pressure 1: 126/64 Code: 8480-6 BMI: 30.0 Code: 41222-1 Heart Rate 1: 96 bpm Height: 6' [...] 1: 144/78 Code: 8480-6 BMI: 30.7 Code: 33344-1 Heart Rate 1: 92 bpm Height: 6' Respiratory Rate: 28 bpm SpO2: 94% Tempera ture: 36.9 (C) / 98.4 (F) Weight: 226 lbs 12/28/2017 Blood Pressure 1: 136/80 Code: 8480-6 Heart Rate 1: 92 bpm Respiratory Rate: 28 bpm SpO2: 94% Temperature: 36.7 (C) / 98.1 (F) 12/21/2017 Blood Pressure 1: 146/84 Code: 8480-6 BMI: 31.1 Code: 04186-1 Heart Rate 1: 84 bpm Height: 6' [...] 1: 142/64 Code: 8480-6 BMI: 31.3 Code: 80116-8 Heart Rate 1: 98 bpm Height: 6' Respiratory Rate: 24 bpm SpO2: 94% Tempera ture: 36.4 (C) / 97.6 (F) Weight: 231 lbs 10/17/2017 Blood Pressure 1: 140/68 Code: 8480-6 BMI: 31.7 Code: 09616-0 Heart Rate 1: 88 bpm Height: 6' Respiratory Rate: 20 bpm SpO2: 94% Tempera ture: 36.8 (C) / 98.3 (F) Weight: 234 lbs 08/02/2017 Blood Pressure 1: 142/80 Code: 8480-6 BMI: 31.1 Code: 24221-6 Heart Rate 1: 86 bpm Height: 6' Respiratory Rate: 20 bpm SpO2: 90% Tempera ture: 35.9 (C) / 96.7 (F) Weight: 229 lbs 07/02/2017 Blood Pressure 1: 146/64 Code: 8480-6 BMI: 29.6 Code: 82608-1 Heart Rate 1: 96 bpm Height: 6' Respiratory Rate: 20 bpm Temperature: 36 .4 (C) / 97.6 (F) Weight: 218 lbs 05/29/2017 Blood Pressure 1: 152/68 Code: 8480-6 BMI: 31.5 Code: 30770-6 Heart Rate 1: 100 bpm Height: 6' Respiratory Rate: 20 bpm SpO2: 92% Tempera ture: 36.9 (C) / 98.4 (F) Weight: 232 lbs 02/01/2017 Blood Pressure 1: 146/64 Code: 8480-6 BMI: 30.7 Code: 42593-7 Heart Rate 1: 76 bpm Height: 6' Respiratory Rate: 20 bpm SpO2: 95% Tempera ture: 36.8 (C) / 98.2 (F) Weight: 226 lbs 01/29/2017 Blood Pressure 1: 146/78 Code: 8480-6 Heart Rate 1: 84 bpm Respiratory Rate: 20 bpm SpO2: 96% Temperature: 36.1 (C) / 97.0 (F) We ight: 226 lbs 12/21/2016 Blood Pressure 1: 126/60 Code: 8480-6 BMI: 30.8 Code: 30210-8 Heart Rate 1: 88 bpm Height: 6' Respiratory Rate: 22 bpm SpO2: 94% Tempera ture: 36.7 (C) / 98.0 (F) Weight: 227 lbs 12/14/2016 Blood Pressure 1: 126/70 Code: 8480-6 BMI: 29.8 Code: 03640-7 Heart Rate 1: 92 bpm Height: 6' Respiratory Rate: 22 bpm SpO2: 93% Tempera ture: 36.8 (C) / 98.2 (F) Weight: 220 lbs 11/14/2016 Blood Pressure 1: 128/62 Code: 8480-6 Heart Rate 1: 100 bpm Respiratory Rate: 20 bpm SpO2: 96% Temperature: 36.6 (C) / 97.8 (F) We ight: 220 lbs 10/31/2016 Blood Pressure 1: 142/60 Code: 8480-6 BMI: 30.1 Code: 03052-9 Heart Rate 1: 112 bpm Height: 6' Respiratory Rate: 24 bpm SpO2: 93% Tempera ture: 37.1 (C) / 98.7 (F) Weight: 222 lbs 10/03/2016 Blood Pressure 1: 136/78 Code: 8480-6 Heart Rate 1: 106 bpm Respiratory Rate: 24 bpm SpO2: 93% Temperature: 36.6 (C) / 97.8 (F) We ight: 221 lbs 09/04/2016 Blood Pressure 1: 112/44 Code: 8480-6 BMI: 30.1 Code: 09654-2 Heart Rate 1: 90 bpm Height: 6' Respiratory Rate: 20 bpm SpO2: 93% Tempera ture: 36.6 (C) / 97.9 (F) Weight: 222 lbs 08/22/2016 Blood Pressure 1: 142/68 Code: 8480-6 BMI: 30.4 Code: 81410-3 Heart Rate 1: 100 bpm Height: 6' Respiratory Rate: 24 bpm SpO2: 93% Tempera ture: 36.7 (C) / 98.1 (F) Weight: 224 lbs 08/10/2016 Blood Pressure 1: 134/60 Code: 8480-6 BMI: 30.2 Code: 68199-5 Heart Rate 1: 76 bpm Height: 6' [...] 1: 122/72 Code: 8480-6 BMI: 30.7 Code: 47834-8 Heart Rate 1: 96 bpm Height: 6' Respiratory Rate: 22 bpm SpO2: 96% Tempera ture: 35.9 (C) / 96.7 (F) Weight: 226 lbs 04/03/2016 Blood Pressure 1: 146/64 Code: 8480-6 BMI: 30.8 Code: 60931-5 Heart Rate 1: 76 bpm Height: 6' Respiratory Rate: 20 bpm Temperature: 36 .8 (C) / 98.2 (F) Weight: 227 lbs 03/02/2016 Blood Pressure 1: 148/60 Code: 8480-6 BMI: 31.1 Code: 92381-5 Heart Rate 1: 80 bpm Height: 6' Respiratory Rate: 22 bpm SpO2: 94% Tempera ture: 36.6 (C) / 97.8 (F) Weight: 229 lbs 02/17/2016 Blood Pressure 1: 132/60 Code: 8480-6 BMI: 31.3 Code: 93904-4 Heart Rate 1: 80 bpm Height: 6' Respiratory Rate: 20 bpm Temperature: 36 .9 (C) / 98.4 (F) Weight: 231 lbs 02/14/2016 Blood Pressure 1: 126/70 Code: 8480-6 BMI: 31.3 Code: 63260-4 Heart Rate 1: 80 bpm Height: 6' Respiratory Rate: 24 bpm SpO2: 95% Tempera ture: 36.9 (C) / 98.5 (F) Weight: 231 lbs 01/31/2016 Blood Pressure 1: 136/60 Code: 8480-6 Heart Rate 1: 76 bpm Respiratory Rate: 22 bpm Temperature: 37.0 (C) / 98.6 (F) Weight: 230 lbs 12/30/2015 Blood Pressure 1: 128/58 Code: 8480-6 BMI: 31.2 Code: 13914-5 Heart Rate 1: 80 bpm Height: 6' Respiratory Rate: 20 bpm Temperature: 36 .8 (C) / 98.2 (F) Weight: 230 lbs 12/16/2015 Blood Pressure 1: 122/60 Code: 8480-6 BMI: 32.0 Code: 12900-7 Heart Rate 1: 84 bpm Height: 6' Respiratory Rate: 24 bpm Temperature: 37 .1 (C) / 98.7 (F) Weight: 236 lbs 12/06/2015 Blood Pressure 1: 162/74 Code: 8480-6 BMI: 32.5 Code: 23388-5 Heart Rate 1: 90 bpm Height: 6' Respiratory Rate: 20 bpm SpO2: 96% Tempera ture: 36.4 (C) / 97.6 (F) Weight: 240 lbs 11/15/2015 Blood Pressure 1: 166/80 Code: 8480-6 BMI: 32.4 Code: 10822-1 Heart Rate 1: 92 bpm Height: 6' Respiratory Rate: 28 bpm Temperature: 36 .5 (C) / 97.7 (F) Weight: 239 lbs 10/05/2015 Blood Pressure 1: 146/76 Code: 8480-6 BMI: 32.4 Code: 97716-0 Heart Rate 1: 88 bpm Height: 6' Respiratory Rate: 28 bpm Temperature: 37 .1 (C) / 98.7 (F) Weight: 239 lbs 07/22/2015 Blood Pressure 1: 144/68 Code: 8480-6 BMI: 31.9 Code: 70547-8 Heart Rate 1: 88 bpm Height: 6' [...] 1: 142/64 Code: 8480-6 BMI: 32.1 Code: 92550-2 Heart Rate 1: 80 bpm Height: 6' Respiratory Rate: 18 bpm Temperature: 36 .4 (C) / 97.6 (F) Weight: 237 lbs 06/07/2015 Blood Pressure 1: 164/58 Code: 8480-6 BMI: 32.1 Code: 92822-3 Heart Rate 1: 88 bpm Height: 6' Respiratory Rate: 20 bpm Temperature: 36 .6 (C) / 97.9 (F) Weight: 237 lbs 06/03/2015 Blood Pressure 1: 152/64 Code: 8480-6 BMI: 32.1 Code: 53203-9 Heart Rate 1: 96 bpm Height: 6' Respiratory Rate: 20 bpm Temperature: 37 .4 (C) / 99.3 (F) Weight: 237 lbs 06/01/2015 Blood Pressure 1: 136/70 Code: 8480-6 BMI: 31.7 Code: 33020-0 Heart Rate 1: 72 bpm Height: 6' Respiratory Rate: 22 bpm SpO2: 94% Tempera ture: 36.6 (C) / 97.9 (F) Weight: 234 lbs 02/25/2015 Blood Pressure 1: 146/80 Code: 8480-6 BMI: 32.4 Code: 09967-3 Heart Rate 1: 84 bpm Height: 6' Respiratory Rate: 28 bpm Temperature: 36 .7 (C) / 98.0 (F) Weight: 239 lbs 10/27/2014 Blood Pressure 1: 168/70 Code: 8480-6 BMI: 32.0 Code: 62890-5 Heart Rate 1: 80 bpm Height: 6' Respiratory Rate: 30 bpm SpO2: 98% Tempera ture: 36.4 (C) / 97.6 (F) Weight: 236 lbs 10/21/2014 Blood Pressure 1: 152/58 Code: 8480-6 BMI: 32.1 Code: 23482-7 Heart Rate 1: 78 bpm Height: 6' Respiratory Rate: 20 bpm Temperature: 37 .8 (C) / 100.1 (F) Weight: 237 lbs 10/06/2014 Blood Pressure 1: 132/64 Code: 8480-6 BMI: 32.5 Code: 97014-7 Heart Rate 1: 88 bpm Height: 6' Respiratory Rate: 32 bpm SpO2: 94% Tempera ture: 36.8 (C) / 98.2 (F) Weight: 240 lbs 09/21/2014 Blood Pressure 1: 134/68 Code: 8480-6 BMI: 32.4 Code: 97371-5 Heart Rate 1: 96 bpm Height: 6' Respiratory Rate: 30 bpm Temperature: 36 .7 (C) / 98.1 (F) Weight: 239 lbs 09/08/2014 Blood Pressure 1: 128/74 Code: 8480-6 BMI: 32.4 Code: 58603-9 Heart Rate 1: 82 bpm Height: 6' Respiratory Rate: 28 bpm SpO2: 93% Tempera ture: 36.6 (C) / 97.8 (F) Weight: 239 lbs 09/02/2014 Blood Pressure 1: 164/78 Code: 8480-6 Heart Rate 1: 86 bpm Respiratory Rate: 22 bpm SpO2: 96% Temperature: 36.1 (C) / 97.0 (F) We ight: 239 lbs 08/10/2014 Blood Pressure 1: 152/60 Code: 8480-6 BMI: 32.8 Code: 09934-8 Heart Rate 1: 80 bpm Height: 6' [...] 1: 146/80 Code: 8480-6 BMI: 33.9 Code: 40509-8 Heart Rate 1: 80 bpm Height: 6' [...] 1: 148/78 Code: 8480-6 BMI: 30.5 Code: 95835-7 Heart Rate 1: 84 bpm Height: 6' Respiratory Rate: 28 bpm SpO2: 97% Tempera ture: 36.4 (C) / 97.5 (F) Weight: 225 lbs 08/06/2013 Blood Pressure 1: 158/70 Code: 8480-6 Heart Rate 1: 110 bpm Respiratory Rate: 22 bpm SpO2: 88% Temperature: 39.7 (C) / 103.4 (F) W eight: 07/16/2013 Blood Pressure 1: 148/82 Code: 8480-6 BMI: 31.9 Code: 05444-2 Heart Rate 1: 80 bpm Height: 6' Respiratory Rate: 20 bpm Temperature: 36 .6 (C) / 97.9 (F) Weight: 235 lbs 04/09/2013 Blood Pressure 1: 142/78 Code: 8480-6 BMI: 31.5 Code: 61101-5 Heart Rate 1: 88 bpm Height: 6' Respiratory Rate: 32 bpm SpO2: 95% Tempera ture: 37.0 (C) / 98.6 (F) Weight: 232 lbs 02/11/2013 Blood Pressure 1: 146/70 Code: 8480-6 Heart Rate 1: 88 bpm Respiratory Rate: 20 bpm Temperature: 36.8 (C) / 98.3 (F) Weight: 230 lbs 01/31/2013 Blood Pressure 1: 128/70 Code: 8480-6 BMI: 31.6 Code: 11347-6 Heart Rate 1: 84 bpm Height: 6' Respiratory Rate: 24 bpm SpO2: 92% Tempera ture: 36.7 (C) / 98.0 (F) Weight: 233 lbs 01/20/2013 Blood Pressure 1: 148/64 Code: 8480-6 BMI: 31.6 Code: 30943-1 Heart Rate 1: 68 bpm Height: 6' Temperature: 36.1 (C) / 97.0 (F) Weight: 233 lbs 12/19/2012 Blood Pressure 1: 128/68 Code: 8480-6 BMI: 32.0 Code: 15622-7 Heart Rate 1: 64 bpm Height: 6' Temperature: 36.7 (C) / 98.0 (F) Weight: 236 lbs 10/21/2012 Blood Pressure 1: 142/64 Code: 8480-6 BMI: 30.9 Code: 13580-3 Heart Rate 1: 74 bpm Height: 6' Temperature: 36.2 (C) / 97.1 (F) Weight: 228 lbs 09/18/2012 Blood Pressure 1: 126/60 Code: 8480-6 BMI: 31.3 Code: 39314-8 Heart Rate 1: 88 bpm Height: 6' Respiratory Rate: 20 bpm Temperature: 36 .5 (C) / 97.7 (F) Weight: 231 lbs 08/28/2012 Blood Pressure 1: 132/68 Code: 8480-6 BMI: 31.5 Code: 15736-5 Heart Rate 1: 92 bpm Height: 6' Respiratory Rate: 30 bpm SpO2: 94% Tempera ture: 37.1 (C) / 98.7 (F) Weight: 232 lbs 07/10/2012 Blood Pressure 1: 118/70 Code: 8480-6 BMI: 30.5 Code: 56135-4 Heart Rate 1: 72 bpm Height: 6' Respiratory Rate: 24 bpm SpO2: 96% Tempera ture: 36.7 (C) / 98.0 (F) Weight: 225 lbs 05/09/2012 Blood Pressure 1: 124/68 Code: 8480-6 BMI: 29.8 Code: 20396-1 Heart Rate 1: 72 bpm Height: 6' Respiratory Rate: 20 bpm Temperature: 36 .8 (C) / 98.2 (F) Weight: 220 lbs 10/02/2011 Blood Pressure 1: 140/82 Code: 8480-6 BMI: 30.7 Code: 42571-8 Heart Rate 1: 68 bpm Height: 6' Temperature: 36.7 (C) / 98.0 (F) Weight: 226 lbs 08/07/2011 Blood Pressure 1: 122/68 Code: 8480-6 BMI: 30.5 Code: 30874-6 Heart Rate 1: 72 bpm Height: 6' [...] 1: 140/78 Code: 8480-6 BMI: 31.9 Code: 88277-4 Heart Rate 1: 84 bpm Height: 6' Temperature: 36.6 (C) / 97.8 (F) Weight: 235 lbs 12/22/2009 Blood Pressure 1: 140/74 Code: 8480-6 BMI: 31.9 Code: 42582-5 Heart Rate 1: 94 bpm Height: 6' SpO2: 92% Temperature: 35.7 (C) / 96.2 (F) Weight: 235 lbs 12/13/2009 Blood Pressure 1: 146/80 Code: 8480-6 BMI: 33.0 Code: 05271-6 Heart Rate 1: 86 bpm Height: 6' [...] fighting constantly with her. follow up 04/22/2018 [facility] fwup follow up 01/28/2018 knee pain 01/23/2018 nocturia 01/02/2018 dyspnea 12/28/2017 follow up 12/21/2017 chest congestion 12/17/2017 knee pain 12/11/2017 mole check 11/07/2017 follow up 10/17/2017 ER fwup cough 08/02/2017 injection(s) 07/24/2017 Pneumovax follow up 07/02/2017 Patient recently ariel campos on [facility], but never picked up. He was also given prednisone/Zpack on 06/16/17 from walk in clinic. Patient is also in consult with Dr Benjamin. patient dc'd from hospital last week and reports that he is still taking the antibiotic that was prescribed to him (augmentin) and finished out the prednisone. 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 follow up 05/29/2017 Discuss Low [...] nightly. Patient has just been discharged from [place] with Pneumonia. Currently on Levaquin once daily. [...] follow up 03/13/2016 Patient here for [facility] on medication education for insulin use [...] 12/13/2009 Encounters Encounter Performer Location Codes Date ([id number]) OFFICE/OUTPATIENT VISIT EST Diagnosis: Chronic obstructive pulmonary disease, unspecified[ICD10: J44.9] Lita BARAKAT [employer] CPT-4: 39102 03/04/2020 ([id number]) OFFICE/OUTPATIENT VISIT EST Diagnosis: Chronic obstructive pulmonary disease, unspecified[ICD10: J44.9] Lita BARAKAT DO [employer] CPT-4: 03598 02/04/2020 ([id number]) OFFICE/OUTPATIENT VISIT EST Diagnosis: Chronic obstructive pulmonary disease with (acute) exacerbation[ICD10: J44.1] Lita BARAKAT DO [facility] CPT- 4: 57665 12/25/2019 ([id number]) OFFICE/OUTPATIENT VISIT EST Diagnosis: Noncompliance with diabetes treatment[ICD10: Z91.19] Diagnosis: Insomnia[ICD10: G47.00] Diagnosis: Pain in right knee[ICD10: M25.561] [facility]: 46666 12/22/2019 ([id number]) OFFICE/OUTPATIENT VISIT EST Diagnosis: Chronic respiratory failure with hypercapnia[ICD10: J96.12] Diagnosis: Chronic airway obstruction, not elsewhere classified[ICD10: J44.9] Diagnosis: Basal cell carcinoma, face[ICD10: C44.310] Lita BARAKAT DO [facility] CPT-4: 15136 11/12/2019 ([id number]) OFFICE/OUTPATIENT VISIT EST Diagnosis: Chronic obstructive pulmonary disease, unspecified[ICD10: J44.9] Diagnosis: Right thyroid nodule[ICD10: E04.1] Lita BARAKAT [employer] [facility] CPT-4: 60654 09/11/2019 ([id number]) OFFICE/OUTPATIENT VISIT EST Diagnosis: Chronic bronchitis[ICD10: J42] 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] Diagnosis: FLU VACCINE[ICD10: Z23] Lita PABLO [facility] CPT-4: 64582 08/07/2019 ([id number]) OFFICE/OUTPATIENT VISIT EST Diagnosis: Chronic obstructive pulmonary disease with (acute) exacerbation[ICD10: J44.1] Autumn BARAKAT DO [facility] CPT- 4: 12613 07/14/2019 ([id number]) OFFICE/OUTPATIENT VISIT EST Diagnosis: Primary insomnia[ICD10: F51.01] Diagnosis: Dyspepsia and other specified disorders of function of stomach[ICD10: K31.89] Lita BARAKAT [employer] [facility] CPT-4: 67861 07/01/2019 ([id number]) OFFICE/OUTPATIENT VISIT EST Diagnosis: Epigastric pain[ICD10: R10.13] Diagnosis: Nausea[ICD10: R11.0] Diagnosis: Weight loss[ICD10: R63.4] Lita AREVALO DO [facility] CPT-4: 26299 06/24/2019 ([id number]) OFFICE/OUTPATIENT VISIT EST Diagnosis: Chronic obstructive pulmonary disease, unspecified[ICD10: J44.9] Diagnosis: Chronic insomnia[ICD10: F51.04] Diagnosis: Anemia[ICD10: D64.9] Diagnosis: Diplopia[ICD10: H53.2] Diagnosis: [place][ICD10: F30.9] Lita BARAKAT DO [facility] CPT-4: 78965 06/17/2019 ([id number]) NURSE/OUTPATIENT VISIT EST Diagnosis: Vitamin B12 deficiency anemia, unspecified[ICD10: D51.9] Lita BARAKAT DO [facility] CPT-4: 09738 06/10/2019 ([id number]) NURSE/OUTPATIENT VISIT EST Diagnosis: Vitamin B12 deficiency anemia, unspecified[ICD10: D51.9] Lita BARAKAT DO [facility] CPT-4: 36536 06/02/2019 ([id number]) NURSE/OUTPATIENT VISIT EST Diagnosis: Vitamin B12 deficiency anemia, unspecified[ICD10: D51.9] Lita BARAKAT DO [facility] CPT-4: 49801 05/27/2019 ([id number]) NURSE/OUTPATIENT VISIT EST Diagnosis: Vitamin B12 deficiency anemia, unspecified[ICD10: D51.9] Lita BARAKAT DO [facility] CPT-4: 30534 05/12/2019 ([id number]) OFFICE/OUTPATIENT VISIT EST Diagnosis: Restless legs syndrome[ICD10: G25.81] Diagnosis: Primary insomnia[ICD10: F51.01] Diagnosis: Anemia, unspecified[ICD10: D64.9] Diagnosis: Type 2 diabetes mellitus with hyperglycemia[ICD10: E11.65] Diagnosis: Vitamin D deficiency, unspecified[ICD10: E55.9] Lita BARAKAT DO [facility] CPT-4: 76860 05/08/2019 ([id number]) OFFICE/OUTPATIENT VISIT EST Diagnosis: Pain in right knee[ICD10: M25.561] Diagnosis: Restless legs syndrome[ICD10: G25.81] Diagnosis: Insomnia, unspecified[ICD10: G47.00] Lita BARAKAT DO [facility] CPT-4: 70551 04/07/2019 ([id number]) NO CHARGE Diagnosis: Chronic obstructive pulmonary disease with (acute) exacerbation[ICD10: J44.1] Diagnosis: Dizziness and giddiness[ICD10: R42] Diagnosis: Generalized anxiety disorder[ICD10: F41.1] Autumn BARAKAT DO [facility] CPT-4: 00021 03/24/2019 ([id number]) OFFICE/OUTPATIENT VISIT EST Diagnosis: Chronic obstructive pulmonary disease with (acute) exacerbation[ICD10: J44.1] Diagnosis: Dizziness and giddiness[ICD10: R42] Autumn BARAKAT [employer] [facility] CPT-4: 19140 03/21/2019 ([id number]) OFFICE/OUTPATIENT VISIT EST Diagnosis: Candidal stomatitis[ICD10: B37.0] Lita BARAKAT [employer] [facility] CPT-4: 16724 03/13/2019 ([id number]) OFFICE/OUTPATIENT VISIT EST Diagnosis: Chronic obstructive pulmonary disease with acute lower respiratory infection[ICD10: J44.0] Diagnosis: Restless legs syndrome[ICD10: G25.81] Lita BARAKAT [employer] [facility] CPT-4: 78569 03/10/2019 ([id number]) OFFICE/OUTPATIENT VISIT EST Diagnosis: Restless legs syndrome[ICD10: G25.81] Lita ARCHERNDBEV JOHNSON [facility] CPT-4: 23534 02/26/2019 ([id number]) OFFICE/OUTPATIENT VISIT EST Diagnosis: Primary insomnia[ICD10: F51.01] Diagnosis: Chronic obstructive pulmonary disease, unspecified[ICD10: J44.9] Lita BARAKAT [employer] [facility] CPT-4: 41871 02/13/2019 ([id number]) OFFICE/OUTPATIENT VISIT EST Diagnosis: Chronic obstructive pulmonary disease, unspecified[ICD10: J44.9] Diagnosis: Chronic respiratory failure with hypoxia[ICD10: J96.11] Diagnosis: Chronic respiratory failure with hypercapnia[ICD10: J96.12] Lita ALYLINE Ashley BARAKAT DO [facility] CPT-4: 29667 01/14/2019 ([id number]) OFFICE/OUTPATIENT VISIT EST Diagnosis: Chronic respiratory failure with hypoxia[ICD10: J96.11] Diagnosis: Patient's noncompliance with other medical treatment and regimen[ICD10: Z91.19] Diagnosis: Chronic obstructive pulmonary disease with (acute) exacerbation[ICD10: J44.1] Lita BARAKAT [employer] [facility] CPT- 4: 66822 12/25/2018 ([id number]) OFFICE/OUTPATIENT VISIT EST Diagnosis: Essential (primary) hypertension[ICD10: I10] Diagnosis: Type 2 diabetes mellitus with hyperglycemia[ICD10: E11.65] Diagnosis: Hypothyroidism, unspecified[ICD10: E03.9] Diagnosis: Hyperlipidemia, unspecified[ICD10: E78.5] Diagnosis: Acute recurrent maxillary sinusitis[ICD10: J01.01] Ines Banerjee LITA BARAKAT [employer] [facility] CPT-4: 16566 12/09/2018 ([id number]) OFFICE/OUTPATIENT VISIT EST Diagnosis: Candidal stomatitis[ICD10: B37.0] Lita Barakat RUSSEL Segura Ashley BARAKAT [employer] [facility] CPT-4: 84797 12/05/2018 ([id number]) OFFICE/OUTPATIENT VISIT EST Diagnosis: Acute recurrent sinusitis, unspecified[ICD10: J01.91] Diagnosis: Pain in right knee[ICD10: M25.561] Lita GONZALES Ashley BARAKAT [employer] [facility] CPT-4: 03861 10/23/2018 ([id number]) OFFICE/OUTPATIENT VISIT EST Diagnosis: Restless legs syndrome[ICD10: G25.81] Diagnosis: Basal cell carcinoma of skin of scalp and neck[ICD10: C44.41] Lita Yuval ALYLINE Ashley BARAKAT [employer] [facility] CPT-4: 29870 08/21/2018 ([id number]) OFFICE/OUTPATIENT VISIT EST Diagnosis: Chronic obstructive pulmonary disease with acute lower respiratory infection[ICD10: J44.0] Diagnosis: Restless legs syndrome[ICD10: G25.81] Lita BARAKAT DO [facility] CPT-4: 33575 08/07/2018 ([id number]) OFFICE/OUTPATIENT VISIT EST Diagnosis: Chronic obstructive pulmonary disease with acute lower respiratory infection[ICD10: J44.0] Lita BARAKAT DO [facility] CPT-4: 37116 05/23/2018 ([id number]) OFFICE/OUTPATIENT VISIT EST Diagnosis: Candidal stomatitis[ICD10: B37.0] Lita BARAKAT DO [facility] CPT-4: 27615 05/02/2018 ([id number]) OFFICE/OUTPATIENT VISIT EST Diagnosis: Candidal stomatitis[ICD10: B37.0] Diagnosis: Other retention of urine[ICD10: R33.8] Diagnosis: Chronic obstructive pulmonary disease with acute lower respiratory infection[ICD10: J44.0] Autumn BARAKAT [facility] CPT-4: 48598 04/29/2018 ([id number]) OFFICE/OUTPATIENT VISIT EST Diagnosis: Chronic obstructive pulmonary disease with acute lower respiratory infection[ICD10: J44.0] Lita BARAKAT DO [facility] CPT-4: 74498 04/22/2018 ([id number]) OFFICE/OUTPATIENT VISIT EST Diagnosis: Unilateral primary osteoarthritis, right knee[ICD10: M17.11] Diagnosis: Squamous cell carcinoma of skin, unspecified[ICD10: C44.92] Lita BARAKAT DO [facility] CPT-4: 47919 01/28/2018 ([id number]) OFFICE/OUTPATIENT VISIT EST Diagnosis: Pain in right knee[ICD10: M25.561] Diagnosis: 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] Lita BARAKAT DO [facility] CPT-4: 97715 01/23/2018 ([id number]) OFFICE/OUTPATIENT VISIT EST Diagnosis: Urinary tract infection, site not specified[ICD10: N39.0] Diagnosis: Chronic obstructive pulmonary disease with acute lower respiratory infection[ICD10: J44.0] Lita BARAKAT [facility] CPT-4: 46633 01/02/2018 ([id number]) OFFICE/OUTPATIENT VISIT EST Diagnosis: Chronic obstructive pulmonary disease with (acute) exacerbation[ICD10: J44.1] Autumn BARAKAT DO [facility] CPT- 4: 78764 12/28/2017 ([id number]) OFFICE/OUTPATIENT VISIT EST Diagnosis: Acute bronchitis, unspecified[ICD10: J20.9] Autumn BARAKAT DO [facility] CPT-4: 19181 12/21/2017 ([id number]) OFFICE/OUTPATIENT VISIT EST Diagnosis: Chronic obstructive pulmonary disease with acute lower respiratory infection[ICD10: J44.0] Diagnosis: Pain in right knee[ICD10: M25.561] Autumn BARAKAT [facility] CPT-4: 64099 12/17/2017 ([id number]) OFFICE/OUTPATIENT VISIT EST Diagnosis: Laceration without foreign body of right hand, sequela[ICD10: S61.411S] Diagnosis: Restless legs syndrome[ICD10: G25.81] Lita BARAKAT [facility] CPT-4: 49779 10/17/2017 OFFICE/OUTPATIENT VISIT EST Diagnosis: Chronic obstructive pulmonary disease with acute lower respiratory infection[ICD10: J44.0] Autumn BARAKAT [facility] CPT-4: 63377 08/02/2017 ([id number]) OFFICE/OUTPATIENT VISIT EST Diagnosis: PNEUMOCOCCAL VACCINE[ICD10: Z23] Lita BARAKAT [facility] CPT-4: 04834 07/24/2017 OFFICE/OUTPATIENT VISIT EST Diagnosis: Chronic obstructive pulmonary disease with (acute) exacerbation[ICD10: J44.1] Autumn BARAKAT [facility] CPT- 4: 67496 07/02/2017 OFFICE/OUTPATIENT VISIT EST Diagnosis: Low back pain[ICD10: M54.5] Ruchi Buchanan LITAFLOR GHOTRA [facility] CPT-4: 61449 05/29/2017 ([id number]) OFFICE/OUTPATIENT VISIT EST Diagnosis: Essential (primary) hypertension[ICD10: I10] Diagnosis: Hypothyroidism, unspecified[ICD10: E03.9] Diagnosis: Dizziness and giddiness[ICD10: R42] Diagnosis: Other abnormality of red blood cells[ICD10: R71.8] Diagnosis: Contracture of muscle, unspecified site[ICD10: M62.40] Lita BARAKAT DO [facility] CPT-4: 58310 04/17/2017 OFFICE/OUTPATIENT VISIT EST Diagnosis: Pain in left shoulder[ICD10: M25.512] Ruchi Chanel TADEO BARAKAT [employer] [facility] CPT-4: 31700 01/29/2017 ([id number]) OFFICE/OUTPATIENT VISIT EST Diagnosis: Anemia, unspecified[ICD10: D64.9] Lita BARAKAT [employer] [facility] CPT-4: 26199 12/27/2016 ([id number]) OFFICE/OUTPATIENT VISIT EST Diagnosis: Other fatigue[ICD10: R53.83] Diagnosis: Other iron deficiency anemias[ICD10: D50.8] Lita BARAKAT [employer] [facility] CPT-4: 37529 12/21/2016 ([id number]) OFFICE/OUTPATIENT VISIT EST Diagnosis: Anemia, unspecified[ICD10: D64.9] Diagnosis: Other fatigue[ICD10: R53.83] Diagnosis: Restless legs syndrome[ICD10: G25.81] Lita BARAKAT DO [facility] CPT-4: 48070 12/14/2016 ([id number]) OFFICE/OUTPATIENT VISIT EST Diagnosis: Anemia, unspecified[ICD10: D64.9] Diagnosis: Other abnormality of red blood cells[ICD10: R71.8] Lita BARAKAT DO [facility] CPT-4: 93624 12/12/2016 ([id number]) OFFICE/OUTPATIENT VISIT EST Diagnosis: Pneumonia, unspecified organism[ICD10: J18.9] Diagnosis: Restless legs syndrome[ICD10: G25.81] Magda Toth TADEO BARAKAT [employer] [facility] CPT-4: 04430 11/14/2016 ([id number]) OFFICE/OUTPATIENT VISIT EST Diagnosis: Candidal stomatitis[ICD10: B37.0] Lita Giannielvabev RUSSELOSCAR [facility] CPT-4: 19612 10/31/2016 ([id number]) OFFICE/OUTPATIENT VISIT EST Diagnosis: Acute upper respiratory infection, unspecified[ICD10: J06.9] Diagnosis: Personal history of pneumonia (recurrent)[ICD10: Z87.01] Magda Toth LITA Ashley [facility] CPT-4: 90590 10/03/2016 ([id number]) OFFICE/OUTPATIENT VISIT EST Diagnosis: Restless legs syndrome[ICD10: G25.81] Diagnosis: Insomnia, unspecified[ICD10: G47.00] Magda ALY FLOR Ashley [facility] CPT-4: 85034 09/04/2016 ([id number]) OFFICE/OUTPATIENT VISIT EST Diagnosis: Restless legs syndrome[ICD10: G25.81] Diagnosis: Primary insomnia[ICD10: F51.01] Lita Giannielvabev ALYLITA Ashley [facility] CPT-4: 73469 08/10/2016 OFFICE/OUTPATIENT VISIT EST Diagnosis: Toxic gastroenteritis and colitis[ICD10: K52.1] Diagnosis: Dizziness and giddiness[ICD10: R42] Diagnosis: Headache[ICD10: R51] Diagnosis: Restless legs syndrome[ICD10: G25.81] Lita Giannibetty TRAN Ashley [facility] CPT-4: 73556 07/06/2016 ([id number]) OFFICE/OUTPATIENT VISIT EST Diagnosis: Chest pain, unspecified[ICD10: R07.9] Diagnosis: Dyspnea, unspecified[ICD10: R06.00] Magda Toth ELLIS CONDE Ashley [facility] CPT-4: 47127 06/22/2016 ([id number]) OFFICE/OUTPATIENT VISIT EST 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] Diagnosis: PNEUMOCOCCAL VACCINE[ICD10: Z23] Diagnosis: FLU VACCINE[ICD10: Z23] Lita CRAWFORD Ashley [facility] CPT-4: 68729 06/13/2016 ([id number]) OFFICE/OUTPATIENT VISIT EST Diagnosis: Chest pain, unspecified[ICD10: R07.9] Diagnosis: Other forms of dyspnea[ICD10: R06.09] Diagnosis: Shortness of breath[ICD10: R06.02] Diagnosis: Other fatigue[ICD10: R53.83] Magda BARAKAT [facility] CPT-4: 93631 06/01/2016 ([id number]) OFFICE/OUTPATIENT VISIT EST Diagnosis: Unspecified hearing loss, left ear[ICD10: H91.92] Diagnosis: Other specified disorders of Eustachian tube, left ear[ICD10: H69.82] Magda ALYLINE Ashley BARAKAT [facility] CPT-4: 11317 11/2015 ([id number]) OFFICE/OUTPATIENT VISIT EST Diagnosis: Impacted cerumen, bilateral[ICD10: H61.23] Diagnosis: DM W/O COMPLICATION TYPE I, 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: E10.9] Diagnosis: Generalized anxiety disorder[ICD10: F41.1] Lita Yuval ALYLINE Ashley FUNEZ [employer] [facility] CPT-4: 15430 04/03/2016 ([id number]) OFFICE/OUTPATIENT VISIT EST Diagnosis: 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] Lita Yuval ALYLINE Ashley [facility] CPT - 4: 35853 03/13/2016 ([id number]) OFFICE/OUTPATIENT VISIT EST Diagnosis: Type 2 diabetes mellitus with hyperglycemia[ICD10: E11.65] Diagnosis: Hyperlipidemia, unspecified[ICD10: E78.5] Diagnosis: Essential (primary) hypertension[ICD10: I10] Diagnosis: Chronic obstructive pulmonary disease, unspecified[ICD10: J44.9] Diagnosis: Testicular hypofunction[ICD10: E29.1] Diagnosis: Male erectile dysfunction, unspecified[ICD10: N52.9] Diagnosis: Anemia, unspecified[ICD10: D64.9] Lita Giannibetty Segura Ashley [employer] [employer] [facility] CPT-4: 16667 03/06/2016 ([id number]) OFFICE/OUTPATIENT VISIT EST Diagnosis: Type 2 diabetes mellitus with hyperglycemia[ICD10: E11.65] Diagnosis: Hyperlipidemia, unspecified[ICD10: E78.5] Diagnosis: Chronic obstructive pulmonary disease, unspecified[ICD10: J44.9] Diagnosis: Male erectile dysfunction, unspecified[ICD10: N52.9] Lita BARAKAT DO [facility] CPT-4: 32198 03/02/2016 ([id number]) OFFICE/OUTPATIENT VISIT EST Diagnosis: Pain in right foot[ICD10: M79.671] Magda BARAKAT DO [facility] CPT-4: 79842 02/14/2016 OFFICE/OUTPATIENT VISIT EST Diagnosis: Generalized anxiety disorder[ICD10: F41.1] Lita BARAKAT DO [facility] CPT-4: 50997 01/31/2016 ([id number]) OFFICE/OUTPATIENT VISIT EST Diagnosis: Generalized anxiety disorder[ICD10: F41.1] Lita BARAKAT DO [facility] CPT-4: 91355 12/30/2015 ([id number]) OFFICE/OUTPATIENT VISIT EST Diagnosis: Localized swelling, mass and lump, neck[ICD10: R22.1] Lita BARAKAT DO [facility] CPT-4: 39395 12/16/2015 OFFICE/OUTPATIENT VISIT EST Diagnosis: Localized enlarged lymph nodes[ICD10: R59.0] Diagnosis: Otalgia, left ear[ICD10: H92.02] Stephanie BARAKAT DO [facility] CPT-4: 96265 12/06/2015 OFFICE/OUTPATIENT VISIT EST Diagnosis: Localized enlarged lymph nodes[ICD10: R59.0] Diagnosis: Squamous cell carcinoma of skin, unspecified[ICD10: C44.92] Diagnosis: Actinic keratosis[ICD10: L57.0] Stephanie BARAKAT DO [facility] CPT-4: 06577 11/15/2015 OFFICE/OUTPATIENT VISIT EST Diagnosis: Cellulitis of left lower limb[ICD10: L03.116] Diagnosis: Encounter for examination and observation for other specified reasons[ICD10: Z04.8] Diagnosis: Chronic obstructive pulmonary disease, unspecified[ICD10: J44.9] Stephanie BARAKAT DO [facility] CPT-4: 47382 07/22/2015 OFFICE/OUTPATIENT VISIT EST Diagnosis: Other specified joint disorders, left knee[ICD10: M25.862] Diagnosis: Cellulitis of left lower limb[ICD10: L03.116] Diagnosis: Other fatigue[ICD10: R53.83] Diagnosis: Hyperlipidemia, unspecified[ICD10: E78.5] Stephanie BARAKAT DO [facility] CPT-4: 30680 07/01/2015 OFFICE/OUTPATIENT VISIT EST Diagnosis: Pain in left knee[ICD10: M25.562] Diagnosis: Cellulitis of left lower limb[ICD10: L03.116] Diagnosis: Other specified joint disorders, left knee[ICD10: M25.862] Stephanie BARAKAT [facility] CPT-4: 58341 06/28/2015 OFFICE/OUTPATIENT VISIT EST Diagnosis: PREPATELLAR BURSITIS[ICD9: 726.65] Diagnosis: Cellulitis of knee, left[ICD9: 682.6] Stephanie BARAKAT [facility] CPT-4: 46846 06/09/2015 ([id number]) OFFICE/OUTPATIENT VISIT EST Diagnosis: PREPATELLAR BURSITIS[ICD9: 726.65] Diagnosis: Cellulitis of knee, left[ICD9: 682.6] Lita BARAKAT [facility] CPT-4: 71419 06/07/2015 OFFICE/OUTPATIENT VISIT EST Diagnosis: Cellulitis of knee, left[ICD9: 682.6] Stephanie BARAKAT [facility] CPT-4: 87639 06/03/2015 ([id number]) OFFICE/OUTPATIENT VISIT EST Diagnosis: DM W/O COMPLICATION TYPE II, UNCONTROLLED[ICD9: 250.02] Diagnosis: COPD[ICD9: 496] Lita BARAKAT [facility] CPT- 4: 01396 06/01/2015 ([id number]) OFFICE/OUTPATIENT VISIT EST Diagnosis: COPD[ICD9: 496] Diagnosis: DYSPNEA[ICD9: 786.09] Diagnosis: DM W/O COMPLICATION TYPE II, UNCONTROLLED[ICD9: 250.02] Diagnosis: Actinic keratosis[ICD9: 702.0] Lita BARAKAT [employer] [facility] CPT-4: 34374 02/25/2015 ([id number]) OFFICE/OUTPATIENT VISIT EST Diagnosis: ASTHMA NOS[ICD9: 493.90] Diagnosis: COPD[ICD9: 496] Diagnosis: DM W/O COMPLICATION TYPE II, UNCONTROLLED[ICD9: 250.02] Lita BARAKAT [facility] CPT-4: 54469 10/27/2014 OFFICE/OUTPATIENT VISIT EST Diagnosis: DYSPNEA[ICD9: 786.09] Diagnosis: COPD[ICD9: 496] Lita BARAKAT DO [facility] CPT- 4: 32413 10/06/2014 ([id number]) OFFICE/OUTPATIENT VISIT EST Diagnosis: PNEUMONIA, ORGANISM[ICD9: 486] Diagnosis: COPD[ICD9: 496] Diagnosis: DYSPNEA[ICD9: 786.09] Lita BARAKAT [facility] CPT-4: 74451 09/21/2014 OFFICE/OUTPATIENT VISIT EST Diagnosis: PNEUMONIA, ORGANISM[ICD9: 486] Diagnosis: DYSPNEA[ICD9: 786.09] Diagnosis: COUGH[ICD9: 786.2] Stephanie BARAKAT [facility] CPT-4: 44020 09/08/2014 OFFICE/OUTPATIENT VISIT EST Diagnosis: COPD with exacerbation[ICD9: 491.21] Diagnosis: COUGH[ICD9: 786.2] Diagnosis: DYSPNEA[ICD9: 786.09] Stephanie BARAKAT DO [facility] CPT-4: 86928 09/02/2014 ([id number]) OFFICE/OUTPATIENT VISIT EST Diagnosis: DM W/O COMPLICATION TYPE II, UNCONTROLLED[ICD9: 250.02] Lita BARAKAT [facility] CPT-4: 85091 08/27/2014 ([id number]) OFFICE/OUTPATIENT VISIT EST Diagnosis: DM W/O COMPLICATION TYPE II, UNCONTROLLED[ICD9: 250.02] Diagnosis: HYPERLIPIDEMIA NEC/NOS[ICD9: 272.4] Diagnosis: HYPERTENSION[ICD9: 401.9] Diagnosis: COPD[ICD9: 496] Diagnosis: FLU VACCINE[ICD10: Z23] Lita PABLO [facility] CPT-4: 06230 08/05/2014 ([id number]) OFFICE/OUTPATIENT VISIT EST Diagnosis: COPD[ICD9: 496] Diagnosis: Lumbar degenerative disc disease[ICD9: 722.52] Lita BARAKAT [facility] CPT-4: 40230 05/05/2014 OFFICE/OUTPATIENT VISIT EST Diagnosis: DYSPNEA[ICD9: 786.09] Diagnosis: COPD[ICD9: 496] Lita BARAKAT [facility] CPT- 4: 05637 03/24/2014 ([id number]) OFFICE/OUTPATIENT VISIT EST Diagnosis: COPD[ICD9: 496] Diagnosis: DYSPNEA[ICD9: 786.09] Lita BARAKAT [facility] CPT-4: 28114 03/10/2014 OFFICE/OUTPATIENT VISIT EST Diagnosis: Subacromial bursitis[ICD9: 726.19] Diagnosis: Chronic low back pain[ICD9: 724.2] Diagnosis: Lumbar degenerative disc disease[ICD9: 722.52] Lita BARAKAT [facility] CPT-4: 33177 12/16/2013 ([id number]) OFFICE/OUTPATIENT VISIT EST Diagnosis: PHARYNGITIS, ACUTE[ICD9: 462] Diagnosis: COPD[ICD9: 496] Lita BARAKAT [facility] CPT- 4: 76412 10/09/2013 OFFICE/OUTPATIENT VISIT EST Diagnosis: COPD[ICD9: 496] Diagnosis: Acute exacerbation of chronic obstructive pulmonary disease (COPD)[ICD9: 491.21] Ruchi Buchanan LITA BARAKAT [facility] CPT-4: 68338 09/18/2013 ([id number]) OFFICE/OUTPATIENT VISIT EST Diagnosis: PNEUMONIA, ORGANISM[ICD9: 486] Diagnosis: DM W/O COMPLICATION TYPE II[ICD9: 250.00] Lita BARAKAT [facility] CPT-4: 71090 08/13/2013 ([id number]) OFFICE/OUTPATIENT VISIT EST Diagnosis: DM W/O COMPLICATION TYPE II, UNCONTROLLED[ICD9: 250.02] Diagnosis: HYPERLIPIDEMIA NEC/NOS[ICD9: 272.4] Diagnosis: HYPERTENSION[ICD9: 401.9] Diagnosis: DYSPNEA[ICD9: 786.09] Diagnosis: Family history of CABG[ICD9: V17.49] Lita Ramirez [facility] CPT-4: 69450 07/16/2013 ([id number]) OFFICE/OUTPATIENT VISIT EST Diagnosis: DM W/O COMPLICATION TYPE II, UNCONTROLLED[ICD9: 250.02] Diagnosis: HYPERLIPIDEMIA NEC/NOS[ICD9: 272.4] Diagnosis: HYPERTENSION[ICD9: 401.9] Lita Ramirez [facility] CPT-4: 11969 06/25/2013 OFFICE/OUTPATIENT VISIT EST Diagnosis: COUGH[ICD9: 786.2] Diagnosis: COPD[ICD9: 496] Kimberly Ramirez [facility] CPT- 4: 99176 04/09/2013 ([id number]) OFFICE/OUTPATIENT VISIT EST Diagnosis: Muscle spasm[ICD9: 728.85] Diagnosis: ARTHRALGIA-MULTIPLE SITES[ICD9: 719.49] Lita Ramirez [facility] CPT-4: 14257 02/11/2013 OFFICE/OUTPATIENT VISIT EST Diagnosis: COPD with exacerbation[ICD9: 491.21] Diagnosis: BRONCHITIS, ACUTE[ICD9: 466.0] Ruchi [facility] CPT-4: 10396 01/31/2013 OFFICE/OUTPATIENT VISIT EST Diagnosis: COUGH[ICD9: 786.2] Diagnosis: PHARYNGITIS, ACUTE[ICD9: 462] Diagnosis: SINUSITIS, ACUTE[ICD9: 461.9] Lita Ramirez [facility] CPT-4: 20107 01/20/2013 OFFICE/OUTPATIENT VISIT EST Diagnosis: DIZZINESS/VERTIGO[ICD9: 780.4] [facility]ita [facility] CPT-4: 58548 12/19/2012 OFFICE/OUTPATIENT VISIT EST Diagnosis: Skin lesion of left arm[ICD9: 709.9] Diagnosis: Otitis externa[ICD9: 380.10] Diagnosis: PHARYNGITIS, ACUTE[ICD9: 462] Lita [facility] CPT-4: 62993 10/21/2012 ([id number]) OFFICE/OUTPATIENT VISIT EST Diagnosis: DM W/O COMPLICATION TYPE II, UNCONTROLLED[ICD9: 250.02] Diagnosis: HYPERLIPIDEMIA NEC/NOS[ICD9: 272.4] Diagnosis: HYPERTENSION[ICD9: 401.9] [facility]: 95262 09/19/2012 ([id number]) OFFICE/OUTPATIENT VISIT EST Diagnosis: DM W/O COMPLICATION TYPE II, UNCONTROLLED[ICD9: 250.02] Diagnosis: HYPERLIPIDEMIA NEC/NOS[ICD9: 272.4] Diagnosis: COPD[ICD9: 496] Lita [facility] CPT- 4: 78039 09/18/2012 ([id number]) OFFICE/OUTPATIENT VISIT EST Diagnosis: BRONCHITIS, ACUTE[ICD9: 466.0] Diagnosis: SINUSITIS, ACUTE[ICD9: 461.9] Lita [facility] CPT-4: 39027 08/28/2012 ([id number]) OFFICE/OUTPATIENT VISIT EST Diagnosis: COPD[ICD9: 496] Diagnosis: DYSPNEA[ICD9: 786.09] Diagnosis: VAC STREP PNEUMONIAE-FLU (Medicare)[ICD9: V06.6] Lita [facility] CPT-4: 80752 07/10/2012 ([id number]) OFFICE/OUTPATIENT VISIT EST Diagnosis: DM W/O COMPLICATION TYPE II, UNCONTROLLED[ICD9: 250.02] Diagnosis: HYPERTENSION[ICD9: 401.9] Diagnosis: HYPERLIPIDEMIA NEC/NOS[ICD9: 272.4] Diagnosis: DIZZINESS/VERTIGO[ICD9: 780.4] Lita [facility] CPT-4: 24732 05/09/2012 ([id number]) OFFICE/OUTPATIENT VISIT EST Diagnosis: DM W/O COMPLICATION TYPE II, UNCONTROLLED[ICD9: 250.02] Diagnosis: HYPERLIPIDEMIA NEC/NOS[ICD9: 272.4] Diagnosis: HYPERTENSION[ICD9: 401.9] Diagnosis: MALAISE AND FATIGUE[ICD9: 780.79] Lita Segura SFerdinand ARCHER[facility]ER [facility] CPT-4: 15295 05/06/2012 OFFICE/OUTPATIENT VISIT EST Diagnosis: COUGH[ICD9: 786.2] Diagnosis: SINUSITIS, ACUTE[ICD9: 461.9] Diagnosis: PHARYNGITIS, ACUTE[ICD9: 462] Lita CRAWFORD SFerdinand [facility] CPT-4: 74791 10/02/2011 OFFICE/OUTPATIENT VISIT EST Diagnosis: DM W/O COMPLICATION TYPE II, UNCONTROLLED[ICD9: 250.02] Diagnosis: HYPERLIPIDEMIA NEC/NOS[ICD9: 272.4] Diagnosis: HYPERTENSION[ICD9: 401.9] Diagnosis: COPD[ICD9: 496] Lita CRAWFORD SFerdinand ARCHERNDER DO [facility] CPT- 4: 02030 08/07/2011 OFFICE/OUTPATIENT VISIT EST Lita CRAWFORD S. ORE NDER DO [facility] CPT- 4: 72814 04/03/2011 ([id number]) OFFICE/OUTPATIENT VISIT EST Lita PALACIOS S. ORENDER DO [facility] CPT-4: 77050 01/18/2011 ([id number]) OFFICE/OUTPATIENT VISIT EST Lita PALACIOS S. ORENDER DO [facility] CPT-4: 69234 12/19/2010 ([id number]) OFFICE/OUTPATIENT VISIT, EST Lita Oreelvabev HOLMAN S. ORENDER DO [facility] CPT-4: 47365 04/05/2010 ([id number]) OFFICE/OUTPATIENT VISIT, EST Lita Giannielvabev HOLMAN S. ORENDER DO [facility] CPT-4: 58545 01/13/2010 ([id number]) OFFICE/OUTPATIENT VISIT, EST Liat Giannielvabev ALIZE MANDA S. ORENDER DO [facility] CPT-4: 93349 12/23/2009 ([id number]) OFFICE/OUTPATIENT VISIT, EST Lita Giannielvabev ALIZE MANDA S. ORENDER DO [facility] CPT-4: 29434 12/22/2009 ([id number]) OFFICE/OUTPATIENT VISIT, EST [facility] CPT-4: 59414 12/13/2009 Plan of Care Planned Activity Notes [...] J44.9 02/04/2020 Appointment: Lita Barakat WPtel: [address] [place], [place] [phone] US MEDICATION REVIEW 02/04/2020 Visit Diagnosis Plan: Chronic obstructiv e pulmonary disease with (acute) exacerbation Discussion: Solumedrol 125mg IM Continue SVNs every 4hrs Prednisone for 1 week COVID-19 precautions ICD-9 : 491.21 ICD-10 : J44.1 12/25/2019 Appointment: Lita Barakat WPtel: [address] [place], [place] [phone] FOLLOW UP 12/25/2019 Patient Education: prednisone- [employer] C[employer]on [id number] https://www.[employer]md/resources/getResource/61/nl6pf4d6-5x0m-300w-52 Completed 12/25/2019 Visit Diagnosis Plan: Noncompliance with [...] M25.561 12/22/2019 Appointment: [facility] [phone] [facility] [facility] 12/22/2019 Patient Education: baclofen- [employer] [id number] https://www.[employer]/samplemd/resources/getResource/61/ad0wj317-sat1-7zq9-22 Completed 12/22/2019 Visit Diagnosis Plan: Chronic respiratory [...] C44.310 11/12/2019 Appointment: [facility]el[facility] [phone] [facility] [facility] 11/12/2019 Care Plan: Referral Order SNOMED-CT : 30 [id number] Pending 11/12/2019 Care Plan: Referral Order SNOMED-CT : 30 [id number] Pending 11/12/2019 Visit Diagnosis Plan: Right thyroid nodule Discussion: Check thyroid US ICD-9 : 241.0 ICD-10 : E04.1 09/11/2019 Visit Diagnosis Plan: Chronic obstructive pulmonary di sease, unspecified Discussion: Start Pulmonary Rehab Reviewed results of CT of chest ordered by pulmonology Follow Up: 3 months ICD-9 : 496 ICD-10 : J44.9 09/11/2019 Appointment: Lita Barakat WPtel: [address] [place], [place] [phone] US MEDICATION REVIEW 09/11/2019 Care Plan: US EXAM OF HEAD AND NECK LOIN C : 88482-2 Pending 09/11/2019 Visit Diagnosis Plan: Chronic bronchitis Discussion: A ugmentin for 10 days ICD-9 : 491.9 ICD-10 : J42 08/07/2019 Appointment: Lita Barakat WPtel: [address] [place], [place] [phone] ACUTE ILLNESS 08/07/2019 Visit Diagnosis Plan: Chronic [...] him that overuse of symbicort can cause [facility] damage and the albuterol is to be used every 4 hours as needed. call office later this week with worsening or no improvement ICD-9 : 491.21 ICD-10 : J44.1 07/14/2019 Appointment: Autumn Oneil [address] [place], [place] [id number] ACUTE ILLNESS 07/14/2019 Visit Diagnosis Plan: [...] F51.01 07/01/2019 Appointment: Lita Barakat WPtel: [address] [place], [place] [phone] US FOLLOW UP 07/01/2019 Care Plan: CT ABDOMEN W/O DYE LOINC : 36 103-0 Pending 07/01/2019 Care Plan: Referral Order SNOMED-CT : 30 [id number] Pending 07/01/2019 Visit Diagnosis Plan: Weight loss [...] R10.13 06/24/2019 Appointment: [facility]at [facility]Ptel[facility] [phone] [facility] [facility] 06/24/2019 Patient Education: Seroquel- [employer] Coupon [id number] https://www.[employer]/sampleFluidnet/resources/getResource/61/5xg7i5s1-[email or web address] Completed 06/24/2019 Patient Education: ondansetron HCl- [employer] Coupon [id number] https://www.[employer]/resources/getResource/61/0240445v-3708-35e4-h8 Completed 06/24/2019 Care Plan: US EXAM ABDOM COMPLETE LOINC : 68709-8 Pending 06/24/2019 Visit Diagnosis Plan: Chronic insomnia [...] : H53.2 06/17/2019 Appointment: Lita Barakat WPtel: [phone] [place], [place] [phone] US FOLLOW UP 06/17/2019 Appointment: Lita Barakat WPtel: [phone] [place], [place] [phone] US INJECTION 06/10/2019 Appointment: Lita Barakat WPtel: [address] [place], [place] [phone] US INJECTION 06/02/2019 Appointment: Lita Barakat WPtel: [address] [place], [place] [phone] US INJECTION 05/27/2019 Appointment: Lita Barakat WPtel: [address] [place], [place] [phone] US INJECTION 05/12/2019 Visit Diagnosis Plan: Anemia, [...] : E55.9 05/08/2019 Appointment: Lita Barakat WPtel: [address] [facility] [place] FOLLOW UP 05/08/2019 Visit Diagnosis Plan: Pain in right knee Discussion: S top tramadol and tylenol q HS Trial of Hydrocodone 10/325mg po q HS Recheck 1month ICD-9 : 719.46 ICD-10 : M25.561 04/07/2019 Appointment: Lita Barakat WPtel: [facility] [place] Hospital Follow Up 04/07/2019 Visit Diagnosis Plan: [...] ICD-10 : F41.1 03/24/2019 Appointment: Autumn Oneil [address] [place], [place] [phone] 03/24/2019 Patient Education: hydroxyzine HCl- [employer] C[employer]on [id number] Completed 03/24/2019 Patient Education: pantoprazole- [employer] C[employer]on [id number] Completed 03/24/2019 Visit Diagnosis Plan: Chronic obstructiv e pulmonary disease with (acute) exacerbation Discussion: 90 mg solumedrol given in of fice. patient's portable oxygen tank was empty. [id number] patient on importance of monitoring oxygen tank [...] : R42 03/21/2019 Appointment: [facility] 03/21/2019 Patient Education: ipratropium-albuterol- OptimizeRX C oupon [id number] https://www.[employer].com/samplemd/resources/getResource/61/k2iw21g6-l6z4-5m1q-53 Completed 03/21/2019 Visit Diagnosis Plan: Chronic obstructiv e pulmonary disease with (acute) exacerbation Discussion: Solumedrol now Use SVNs with duoneb at least q4hrs Patient is supposed to be on continuous oxygen but not wearing ICD-9 : 491.21 ICD-10 : J44.1 03/13/2019 Visit Diagnosis Plan: Candidal stomatitis Discussion: Diflucan and Nystatin susp ICD-9 : 112.0 ICD-10 : B37.0 03/13/2019 Appointment: Lita Barakat WPtel: [facility] 03/13/2019 Patient Education: losartan- OptimizeRX Coupon [id number] Completed 03/13/2019 Patient Education: nystatin- Opt[employer] Coupon [id number] Completed 03/13/2019 Patient Education: fluconazole- Opt[employer] Coupon [id number] Completed 03/13/2019 Visit Diagnosis Plan: Chronic obstructiv [...] : G25.81 03/10/2019 Appointment: Lita Barakat WPtel: [address] [place], [place] [phone] ACUTE ILLNESS 03/10/2019 Visit Diagnosis Plan: Restless legs syndrome Discussio n: Stop requip Increase sinemet to TID Add children's chewable MV with iron BID Add magnesium oxide 400mg daily Add Lyrica 75mg po q HS Stop trazadone Recheck 3 weeks Follow Up: 3 weeks ICD-9 : 333.94 ICD-10 : G25.81 02/26/2019 Appointment: Lita Barakat WPtel: [address] [place], [place] [phone] ACUTE ILLNESS 02/26/2019 Visit Diagnosis Plan: Primary insomnia Discussion: Tri al of doxepin 10-20mg po q HS prn sleep ICD-9 : 780.52 ICD-10 : F51.01 02/13/2019 Visit Diagnosis Plan: Chronic obstructive pulmonary di sease, unspecified Discussion: Stable Discussed trip to [place]--will get oxygen setup through [facility] ICD-9 : 496 ICD-10 : J44.9 02/13/2019 Appointment: Lita Barakat WPtel: [address] [place], [place] [phone] [place] FOLLOW UP 02/13/2019 Patient Education: doxepin- Optimize[employer] Coupon [id number] https://www.[employer].Urban [employer]/samplemd/resources/getResource/61/62h2x11n-83dz-859d-5i Completed 02/13/2019 Appointment: Lita Barakat WPtel: [address] [place], [place] [phone] [place] CANCELED 01/20/2019 Visit Diagnosis Plan: Chronic obstructive pulmonary di sease, unspecified Discussion: Stable on oxygen Given Symbicort samples Follow Up: 1 months ICD-9 : 496 ICD-10 : J44.9 01/14/2019 Appointment: Lita Barakat WPtel: [address] [place], [place] [phone] Hospital Follow Up 01/14/2019 Visit Diagnosis [...] : J96.11 12/25/2018 Appointment: Lita Barakat WPtel: [address] [place] [address] Follow Up 12/25/2018 Appointment: Lita Barakat WPtel: [address] [place], [place] [phone] CANCELED 12/23/2018 Appointment: Ines Banerjee [address] [place], [place] [phone] CANCELED 12/20/2018 Visit Diagnosis Plan: Acute recurrent [...] ICD-10 : I10 12/09/2018 Appointment: Ines Banerjee [facility] [place][note 2] [facility] LAB 12/09/2018 Patient Education: cefdinir- OptimizeRX Coupon [id number] https://www.[employer].Urban Traffic/samplemd/resources/getResource/61/g6711m0d-87wx-3737-88 Completed 12/09/2018 Visit Diagnosis Plan: Candidal stomatitis Discussion: Diflucan for 5 days Hold atorvastatin while taking ICD-9 : 112.0 ICD-10 : B37.0 12/05/2018 Appointment: iLta Barakat WPtel: [address] [place] [address] ACUTE ILLNESS 12/05/2018 Patient Education: fluconazole- OptimizeRX Coupon [phone] https://www.[employer]/sampleFluidnet/resources/getResource/61/3y303i13-0gl8-17m6-83 Completed 12/05/2018 Appointment: Lita Barakat WPtel: [address] [place] [address] NO SHOW 11/11/2018 Visit Plan: Saline nasal [...] J01.91 10/23/2018 Appointment: Lita Barakat WPtel: [address] [place] [address] ACUTE ILLNESS 10/23/2018 Patient Education: prednisone- OptimizeRX Coupon [phone] https://www.[employer]/resources/getResource/61/ip7ip912-fpse-3976-10 Completed 10/23/2018 Care Plan: A1C HPLC LOINC : 51962-8 Pending 09/10/2018 Care Plan: COMPREH[place]AB[place] : 601[address]-9 Pending 09/10/2018 Care Plan: CBC Pending 09/10/2018 [...] G25.81 08/21/2018 Appointment: Lita Barakat WPtel: [address] [place] [address] ACUTE ILLNESS 08/21/2018 Care Plan: Referral Order SNOMED-CT : 30 8112734 Pending 08/21/2018 Visit Diagnosis Plan: Chronic obstructiv [...] G25.81 08/07/2018 Appointment: Lita Barakat WPtel: [address] [place] [address] LM FOLLOW UP 08/07/2018 Appointment: Lita Barakat WPtel: [address] [place] [address] 07/18/18 1210---see note in chart (km) CANCELED 07/18/2018 Visit Diagnosis Plan: Chronic obstructiv e pulmonary disease with acute lower respiratory infection Discussion: Solumedrol 125mg IM Change t o trelagy 1 inhalation daily Use SVNs with albuterol q4hrs To ER this weekend if worsens Monitor weight/swelling ICD-9 : 496 ICD-10 : J44.0 05/23/2018 Appointment: Lita Barakat WPtel: [address] [place] [address] ACUTE ILLNESS 05/23/2018 Patient Education: Patient Medication Summary Completed 05/23/2018 Visit Diagnosis Plan: Candidal stomatitis Discussion: Diflucan for 7 more days--hold atrovastatin while taking ICD-9 : 112.0 ICD-10 : B37.0 05/02/2018 Appointment: Lita Barakat WPtel: [address] [id number] FOLLOW UP 05/02/2018 Patient Education: Patient Medication [...] ICD-10 : J44.0 04/29/2018 Appointment: Autumn Oneil [address] [place], [place] [id number] ACUTE ILLNESS 04/29/2018 Patient Education: Patient Medication [...] : J44.0 04/22/2018 Appointment: Lita Barakat WPtel: [address] [place], [place] [phone] Hospital Follow Up 04/22/2018 Patient Education: Patient Medication Summary Completed 04/22/2018 Appointment: Lita Barakat WPtel: [address] [place], [place] [phone] 04/09/18 1640---see message in chart from today [...] : M17.11 01/28/2018 Appointment: Lita Barakat WPtel: [address] [place], [place] [phone] ACUTE ILLNESS 01/28/2018 Patient Education: Patient Medication Summary Completed 01/28/2018 Care Plan: Referral Order SNOMED-CT : 30 8306473 Pending 01/28/2018 Care Plan: Referral Order SNOMED-CT : 30 6701396 Pending 01/28/2018 Visit Diagnosis Plan: Functional dyspepsia Discussion: Protonix Call in 1 week on how doing ICD-9 : 536.8 ICD-10 : K30 01/23/2018 Visit Diagnosis Plan: Pain in right knee Discussion: T noemi wong gel QID ICD-9 : 719.46 ICD-10 : M25.561 01/23/2018 Appointment: Lita Barakat WPtel: [address] [place] [address] ACUTE ILLNESS 01/23/2018 Patient Education: Patient Medication [...] N39.0 01/02/2018 Appointment: Lita Barakat WPtel: [address] [place] [address] ACUTE ILLNESS 01/02/2018 Patient Education: Patient Medication [...] ICD-10 : J44.1 12/28/2017 Appointment: Autumn Oneil [address] [place] [address] Consult 12/28/2017 Patient Education: Patient Medication Summary [...] : J20.9 12/21/2017 Appointment: Autumn Oneil [address] ACUTE ILLNESS 12/21/2017 Patient Education: Patient Medication Summary Completed 12/21/2017 Care Plan: X-RAY EXAM OF KNEE 1 OR 2 right [place] NC : 36677-8 Pending 12/18/2017 Visit Diagnosis Plan: Pain in [...] : J44.0 12/17/2017 Appointment: Autumn Oneil [address] [place] [phone] ACUTE ILLNESS 12/17/2017 Patient Education: Patient Medication Summary Completed 12/17/2017 Visit Diagnosis Plan: Unilateral primary osteoarthriti s, right knee Discussion: Right knee injection as above Warned of elevated BS after injection ICD-9 : 715.96 ICD-10 : M17.11 12/11/2017 Appointment: Lita Barakat WPtel: [address] [place] [address] OFFICE SURGERY 12/11/2017 Patient Education: Patient Medication Summary Completed 12/11/2017 Visit Diagnosis Plan: Actinic keratosis Discussion: Cr yotherapy as above If persists then will need excision by Dr. Swanson ICD-9 : 702.0 ICD-10 : L57.0 11/07/2017 Appointment: Lita Barakat WPtel: [address] [place] [address] ACUTE ILLNESS 11/07/2017 Patient Education: Patient Medication [...] S61.411S 10/17/2017 Appointment: Lita Barakat WPtel: [address] [place] [address] ER Follow UP 10/17/2017 Patient Education: Patient Medication Summary Completed 10/17/2017 Appointment: Lita Barakat WPtel: [address] [place] [address] Consult 08/15/2017 Visit Diagnosis Plan: Chronic obstructiv [...] ICD-10 : J44.0 08/02/2017 Appointment: Autumn Oneil [address] [place] [address] ACUTE ILLNESS 08/02/2017 Patient Education: Patient Medication Summary Completed 08/02/2017 Patient Education: Patient Medication Summary Completed 07/31/2017 Care Plan: CHEST X-RAY 2VW FRONTAL&LATL LOINC : 46755-6 Pending 07/31/2017 Appointment: Lita Barakat WPtel: [address] [place], [place] [phone] [place] INJECTION 07/24/2017 Patient Education: Patient Medication [...] ICD-10 : J44.1 07/02/2017 Appointment: Autumn Oneil [address] [place] [address] ACUTE ILLNESS 07/02/2017 Patient Education: Patient Medication Summary Completed 07/02/2017 Care Plan: CHEST X-RAY 2VW FRONTAL&LATL LOINC : 16510-1 Pending 07/02/2017 Care Plan: MRI LUMBAR SPINE W/O DYE LOIN C : 15699-9 Pending 05/30/2017 Visit Plan: MRI at [facility] codone 5.325 1 po q 4-6 hours prn pain #40 NR and Cyclobenzaprine (ERx) Continue warm packs for pain RTC if no improvement 05/29/2017 Appointment: Ruchi Buchanan WPtel: [address] [place], [place] [phone] ACUTE ILLNESS 05/29/2017 Patient Education: Patient Medication Summary Completed 05/29/2017 Appointment: Lita Barakat WPtel: [address] [place], [place] [phone] [place] CANCELED 05/24/2017 Patient Education: Patient Medication Summary Completed 05/22/2017 Care Plan: X-RAY EXAM L-S SPINE 2/3 VWS LOINC : 53839-3 Pending 05/22/2017 Appointment: Lita Barakat WPtel: [address] [place] [address] [place] LAB 04/17/2017 Patient Education: Patient Medication Summary Completed 04/17/2017 Referral: Demetrius Benjamin WPtel: [address] [place] [address] Referral Initiated 04/05/2017 Appointment: Lita Barakat WPtel: [address] [place] [address] 03/30/17 0930---spoke with patient about ointments (km Consult 03/30/2017 Appointment: Lita Barakat WPtel: [address] [place] [address] 03/29/17 1320---spoke with patient, requip refilled wasn't received at pharmacy so verbally called (km) Consult 03/29/2017 Patient Education: Patient Medication Summary Completed 03/01/2017 Care Plan: CHEST X-RAY 2VW FRONTAL&LATL LOINC : 47195-8 Pending 03/01/2017 Visit Diagnosis Plan: Bursitis of left shoulder Discus yesi: Injection as above ICD-9 : 726.10 ICD-10 : M75.52 02/01/2017 Appointment: Lita Barakat WPtel: [address] [place] [address] 01/31 confirmed ~sl WORK IN 02/01/2017 Patient Education: Patient Medication Summary Completed 02/01/2017 Care Plan: X-RAY EXAM OF SHOULDER LOINC : 34414-7 Pending 01/30/2017 Visit Plan: May take OTC Tylenol/Ibuprof en as directed XRay at [facility] of left shoulder Tramadol 50mg 1 po q 6 hours pr[facility] Sedation warning given (no driving, etc) RTC if no improvement 01/29/2017 Appointment: Ruchi Buchanan WPtel: [address] [place] [address] ACUTE ILLNESS 01/29/2017 Appointment: Chanel Ruchi WPtel: [address] [place] [address] ACUTE ILLNESS 01/29/2017 Patient Education: Patient Medication Summary Completed 01/29/2017 Appointment: Lita Barakat WPtel: [address] [place] [address] [place] Consult 01/10/2017 Appointment: Lita Barakat WPtel: [address] [place] [address] 12/27/2016 Patient Education: Patient Medication Summary Completed [...] R53.83 12/21/2016 Appointment: Lita Barakat WPtel: [address] [place] [address] ACUTE ILLNESS 12/21/2016 Patient Education: Patient Medication Summary Completed 12/21/2016 Appointment: Lita Barakat WPtel: [address] [place] [address] CANCELED 12/18/2016 Visit Diagnosis Plan: Restless legs [...] : D64.9 12/14/2016 Appointment: Lita Barakat WPtel: [address] [place], [place] [id number] 12/13 confirmed ~sl WORK IN 12/14/2016 Appointment: Lita Barakat WPtel: [address] [place] [id number] [place] CANCELED 12/14/2016 Patient Education: Patient Medication Summary Completed 12/14/2016 Appointment: Lita Barakat WPtel: [address] [place] [id number] [place] LAB 12/12/2016 Patient Education: Patient Medication Summary Completed 12/12/2016 Appointment: Lita Barakat WPtel: [address] [place] [id number] in ER this weekend--called for reports Consult 12/11/2016 Appointment: Lita Barakat WPtel: [address] [place], [place] [id number] [place] CANCELED 12/04/2016 Visit Diagnosis Plan: Pneumonia, [...] ICD-10 : G25.81 11/14/2016 Appointment: Magda Toth [address] [place], [place] [phone] MEDICATION REVIEW 11/14/2016 Patient Education: Patient Medication Summary Completed 11/14/2016 Appointment: Lita Barakat WPtel: [address] [place], [place] [phone] [place] RESCHEDULED 11/02/2016 Visit Diagnosis Plan: Candidal stomatitis Discussion: Diflucan and Nystatin Hold atorvastatin while taking diflucan ICD-9 : 112.0 ICD-10 : B37.0 10/31/2016 Appointment: Lita Barakat WPtel: [address] [place], [place] [phone] ACUTE ILLNESS 10/31/2016 Patient Education: Patient Medication Summary Completed 10/31/2016 Appointment: Lita Barakat WPtel: [address] [place] [phone] [place] Consult 10/23/2016 Appointment: Lita Barakat WPtel: [address] [place] [phone] [place] CANCELED 10/18/2016 Visit Plan: Rx as above Wear O2 at all t imes as instructed by Dr Chacon Continue breathing treatments Supportive care otherwise reviewed Follow up ingrid if not improving 10/03/2016 Appointment: Lita Barakat WPtel: [address] [place] [phone] [place] CANCELED 10/03/2016 Appointment: Magda Toth [address] [place], [place] [phone] ACUTE ILLNESS 10/03/2016 Patient Education: Patient Medication Summary Completed 10/03/2016 Visit Plan: Titrate requip to 1.5mg x 1 week Call if not helpful and will increase to 2mg qHS NO MORE nyquil at bedtime - discussed potential effects of decongestants on heart, oversedating himself, etc Will increase requip, then amitriptyline if needed to desired effect 09/04/2016 Appointment: Magda Toth [address] [place], [place] [phone] ACUTE ILLNESS 09/04/2016 Patient Education: Patient Medication Summary Completed 09/04/2016 Visit Plan: Stop requip and try elavil C ryotherapy as above See ENT for removal of right ear lesion 08/22/2016 Appointment: Lita Barakat WPtel: [address] [place] [address] ACUTE ILLNESS 08/22/2016 Patient Education: Patient Medication Summary Completed 08/22/2016 Visit Plan: Trial of requip 1mg q HS Res tart zoloft Recheck 1month 08/10/2016 Appointment: Lita Barakat WPtel: [address] [place] [address] ACUTE ILLNESS 08/10/2016 Patient Education: Patient Medication Summary Completed 08/10/2016 Visit Plan: Stop HCTZ Flagyl for diarrhe a Hydrate Discussed meds for restless legs Zofran prn Nausea 07/06/2016 Appointment: Lita Barakat WPtel: [address] [place] [address] 07/05 confirmed~ Hospital Follow Up 07/06/2016 Patient Education: Patient Medication Summary Completed 07/06/2016 Visit Plan: Reviewed with Dr Yuval Palacios sidering his recent history, instructed him to go straight to the ER called to notify her so she can meet him there 06/22/2016 Appointment: Navneet Magda [address] [place] [address] ACUTE ILLNESS 06/22/2016 Patient Education: Patient Medication Summary Completed 06/22/2016 Visit Plan: Continue current meds Prevna r 13 and High Dose Flu given 06/13/2016 Appointment: Lita Barakat WPtel: [address] [place] [address] 06/13 confirmed~ WORK IN 06/13/2016 Patient Education: Patient Medication Summary Completed 06/13/2016 Appointment: Lita Barakat WPtel: [address] [place] [address] [place] just went over current medications CANCELED 06/08/2016 Visit Plan: Reviewed POC with Dr Barakat Stat cbc, cmp, d dimer, troponin, bnp, ekg, cxr If any worsening of symptoms while awaiting results, patient instructed to go to ER or call 911 06/01/2016 Appointment: Magda Toth [address] [place], [place] [id number] ACUTE ILLNESS 06/01/2016 Patient Education: Patient Medication Summary Completed 06/01/2016 Referral: José Miguel Swanson WPtel: [address] 04/[address] swanson's office, patient [...] eval and treatment 04/26/2016 Appointment: Magda Toth [address] [place] [address] ACUTE ILLNESS 04/26/2016 Patient Education: Patient Medication Summary Completed 04/26/2016 Care Plan: Referral Order SNOMED-CT : 30 [id number] Pending 04/26/2016 Visit Plan: Left ear flushed after conse nt with warm water with peroxide with ear syringe Patient tolerated well Ear exam is wnl following flushing Follow up PRN 04/05/2016 Appointment: Magda Toth [address] [place] [address] ACUTE ILLNESS 04/05/2016 Patient Education: Patient Medication Summary Completed 04/05/2016 Visit Plan: Increase Levemir to 25u sc d aily Increase sertraline to 2 full tablets daily--200mg Debrox or cerumenex to bilateral ears q HS for 3 nights then flush or fwup for fushing Check lab in 2mos then fwup 04/03/2016 Appointment: Lita Barakat WPtel: [address] [place], [place] [phone] 03/31 7/ lm ~sl FOLLOW UP 04/03/2016 Patient Education: Patient Medication Summary Completed 04/03/2016 Visit Plan: Patient informed of correct dosage of levemir and how to administer. Patient verbalizes understanding and will call if any questions/concerns. 10 Units of Levemir given in office SC to right lower abdom en. Patient tolerated well. Site without redness/irritation. 03/13/2016 Appointment: Lita Barakat WPtel: [address] [facility] SPECIAL 03/13/2016 Patient Education: Patient Medication Summary Completed 03/13/2016 Appointment: Lita Barakat WPtel: [address] [facility] LAB 03/06/2016 Patient Education: Patient Medication Summary Completed 03/06/2016 Visit Plan: Patient saw Dr. Chacon this week and was given prednisone taper for COPD Continue current meds Accuchecks daily Patient will return on Sunday morning for fasting lab incuding CBC, CMP, TSH, free T4, HbA1C, Lipids, Testosterone, PSA 03/02/2016 Appointment: Lita Barakat WPtel: [address] [place], [place] [address] 03/01 confirmed ~sl FOLLOW UP 03/02/2016 Patient [...] doing 02/17/2016 Appointment: Lita Barakat WPtel: [address] [place], [place] [phone] WORK IN 02/17/2016 Patient Education: Patient Medication Summary Completed 02/17/2016 Visit Plan: Xrays to further evaluate Alvarez spect heel spur(s) Will call with results Has had injections in the past that were helpful Dr Barakat can do them or can refer to podiatry if warranted 02/14/2016 Appointment: Magda Toth [address] [place], [place] [phone] ACUTE ILLNESS 02/14/2016 Patient Education: Patient Medication Summary Completed 02/14/2016 Visit Plan: Increase Zoloft to 150mg cooper ly 01/31/2016 Appointment: Lita Barakat WPtel: [address] [place], [place] [phone] 01/26 confirmed `sl FOLLOW UP 01/31/2016 Patient Education: Patient Medication Summary Completed 01/31/2016 Visit Plan: Decrease citalopram to 20mg q AM for 1 week then stop Start zoloft 50mg q HS for 1 week then increase to 100mg q HS 12/30/2015 Appointment: Lita Barakat WPtel: [address] [place], [place] [phone] 12/28 confirmed~sl ACUTE ILLNESS 12/30/2015 Patient Education: Patient Medication Summary Completed 12/30/2015 Visit Plan: Check Neck US 12/16/2015 Appointment: Lita Barakat WPtel: [address] [place], [place] [phone] 12/14 lm ~sl 12/15 confirmed-sp FOLLOW UP 12/16/2015 Patient Education: Patient Medication Summary Completed 12/16/2015 Care Plan: US EXAM OF HEAD AND NECK LOIN C : 78079-9 Ordered 12/16/2015 Appointment: Stephanie Rios WPtel: [address] [place], [place] [phone] 12/09 confirmed-sp 12/12 lm ~sl Patient r eturn call and stated he just plain forgot ~sl FOLLOW UP 12/13/2015 Visit Plan: Had changing lesions of fore head and left mastoid area removed earlier today. Follow-up in one week Will proceed with soft tissue ultrasound of neck/ left cervical lymph node if no improvement antibiotics Clindamycin 300mg PO TID 12/06/2015 Appointment: Stephanie Rios WPtel: [address] [place], [place] [phone] ACUTE ILLNESS 12/06/2015 Patient Education: Patient Medication Summary Completed 12/06/2015 Referral: Lisbeth Darby WPtel: [facility] [address] [facility] 11/18/15 called luther at [facility] office and confirmed time and date of appointment with patient~sl Initiated 11/18/2015 Visit Plan: Referral to Dermatology for removal of facial skin lesions Cefdinir PO bid Topical Mupirocin to skin lesions bid 11/15/2015 Appointment: Stephanie Rios WPtel: [address] [place], [place] [phone] ACUTE ILLNESS 11/15/2015 Patient Education: Patient Medication Summary Completed 11/15/2015 Visit Plan: Continue current meds Accuch ecks daily Fwup with ophthamology as scheduled Will check lab in 3mos then fwup due to recent meds that will affect blood sugar 10/05/2015 Appointment: Lita Barakat WPtel: [address] [place], [place] [phone] 10/04/15 appt confirmed cn Annual Well Visit 08/2016 Patient Education: Patient Medication Summary Completed 10/05/2015 Visit Plan: Trajenta -1 sample box given Return visit in 6 weeks for fasting labs Notify for worsening symptoms such as Increased redness, swelling, pain or drainage of Rt. knee 07/22/2015 Appointment: Stephanie Rios WPtel: [address] [place], [place] [phone] 07/21 vm left cn FOLLOW UP 07/22/2015 Patient Education: Patient Medication Summary Completed 07/22/2015 Visit Plan: Continue to change dressing twice daily and apply Mupirocin Complete Doxycycline as directed. Follow-up for worsening symptoms, such as increased swelling, redness or pain. 07/01/2015 Appointment: Stephanie Rios WPtel: [facility] FOLLOW UP 07/01/2015 Patient Education: Patient Medication Summary Completed 07/01/2015 Visit Plan: Pressure dressing applied to draining wound left knee. Instructed to change dressing twice daily and continue Mupirocin topical Doxycycline PO bid x 10 days Wound culture obtained. Wound tissue sent to pathology Follow-up in 3 days 06/28/2015 Appointment: Stephanie [facility]Ptel[phone] [facility] [facility] 06/28/2015 Patient Education: Patient Medication Summary Completed 06/28/2015 Visit Plan: Complete antibiotics Follow- up for increased tenderness, swelling or drainage. 06/09/2015 Appointment: Gabriel Stephanie M WPtel: [address] [place], [place] [phone] 06/08/15 lm FOLLOW UP 06/09/2015 Patient Education: Patient Medication Summary Completed 06/09/2015 Visit Plan: Apply pressure dressing toda y Continue antibiotics and topical Mupirocin Follow-up in 2 days Bursa drained from open area using pressure--serosanguinous drainage 06/07/2015 Appointment: Stephanie Rios WPtel: [facility] 06/04/15 confirmed with patient FOLLOW UP 0 06/07/2015 Patient Education: Patient Medication Summary Completed 06/07/2015 Visit Plan: Wound culture Lt. knee Apply mupirocin to open wound bid Clindamycin 600 mg PO bid x 10 days Follow-up on Sunday06/03/2015 Appointment: Gabriel Stephanei M WPtel: [address] [place], [place] [phone] ACUTE ILLNESS 06/03/2015 Patient Education: Patient Medication Summary Completed 06/03/2015 Visit Plan: Accuchecks daily Check CMP, HbA1C today Patient is noncompliant with meds and diet but patient says he is doing everything he is supposed to do Wants to try performomist instead of albuterol in SVN 06/01/2015 Appointment: Lita Barakat WPtel: [address] [place], [place] [phone] 05/28 appt confirmed cn FOLLOW UP 06/01/20 Patient Education: Patient Medication Summary Completed 06/01/2015 Visit Plan: Change Breo Ellipta to Advai r 500/50 1 p BID this next month Continue turdoza Use albuterol prn Check CMP, HbA1C today Accuchecks daily Cryotherapy as above 02/25/2015 Appointment: Lita Barakat WPtel: [address] [place], [place] [phone] 02/24 appt confirmed and explained needed payment he said ok FOLLOW UP 02/25/2015 Patient Education: Patient Medication Summary Completed 02/25/2015 Referral: Lopez Chacon [address] C&D [id number] [place] Will put patient on cancellation list Initiated 12/08/2014 Appointment: Lita Barakat WPtel: [address] [place], [place] [phone] [place] [address] Follow Up 10/29/2014 Visit Plan: Finish prednisone Continue S VNs with albuterol QID See pulmonology and start Pulmonary rehab Once again discussed taking it easy this winter--that he is high risk for exacerbation 10/27/2014 Appointment: Lita Barakat WPtel: [address] [place] [address] FOLLOW UP 10/27/2014 Patient Education: Patient Medication Summary Completed 10/27/2014 Appointment: Lita Barakat WPtel: [address] [place] [address] FOLLOW UP 10/26/2014 Appointment: Stephanie Rios WPtel: [address] [place], [place] [phone] WORK IN 10/21/2014 Patient Education: Patient Medication Summary Completed 10/21/2014 Patient Education: Patient Medication Summary Completed 10/19/2014 Visit Plan: Continue oxygen and SVNS wit h duoneb Increase farxiga to 10mg daily Diflucan 100mg daily for 1week 10/06/2014 Appointment: Lita Barakat WPtel: [address] [place], [place] [phone] [facility] appt time to 2:45pm FOLLOW UP 2014 Patient Education: Patient Medication Summary Completed 10/06/2014 Visit Plan: Finish omnicef Continue Breo BID and Turdoza Use SVNS with duoneb at least TID for next 2weeks then go to prn 09/21/2014 Appointment: Lita Barakat WPtel: [address] [place], [place] [phone] Hospital Follow Up 09/21/2014 Patient Education: Patient Medication Summary Completed 09/21/2014 Patient Education: [facility] - Saving [employer] - Ventolin HFA - 18+ - Dynamic Portal ID Completed 09/21/2014 Appointment: Stephanie Rios WPtel: [address] [place], [place] [phone] Scheduled by 09/07 patient rescheduled to 09/08 with Stephanie. Hospital Follow Up 09/08/2014 Patient Education: Patient Medication Summary Completed 09/08/2014 Appointment: Stephanie Rios WPtel: [address] [place], [place] [phone] FOLLOW UP 09/02/2014 Patient Education: Patient Medication Summary Completed 09/02/2014 Patient Education: [employer] - Antibi otics, Analgesics 18+, Oral Contraceptives F 18+ Completed 09/02/2014 Appointment: Lita Barakat WPtel: [address] [place], [place] [phone] UA 08/27/2014 Patient Education: Patient Medication [...] prn sleep 08/10/2014 Appointment: Lita Barakat WPtel: [address] [place], [place] [phone] Annual Well Visit 08/10/2014 Patient Education: Patient Medication Summary Completed 08/10/2014 Appointment: Lita Barakat WPtel: [address] [place], [place] [phone] LAB 08/05/2014 Patient Education: Patient Medication Summary Completed 08/05/2014 Visit Plan: ECHO results reviewed Contin ue Breo and Turdoza Pt starts PT this afternoon for back--has had one epidural with no help in pain 05/05/2014 Appointment: Lita Barakat WPtel: [address] [place] [address] FOLLOW UP 05/05/2014 Patient Education: Patient Medication Summary Completed 05/05/2014 Visit Plan: Continue Breo and Turdoza Camargo s heart tests scheduled next week Will see surgeon for removal of skin cancer to neck after done with cardiac workup 03/24/2014 Appointment: Lita Barakat WPtel: [address] [place] [address] FOLLOW UP 03/24/2014 Patient Education: Patient Medication Summary Completed 03/24/2014 Visit Plan: Proceed with cardiology eval uation as patient is has numerous risk factors for CAD Change Symbicort to Breo 1p BID and add Turdorza 1p BID Recheck in weeks Check 2-D ECHO and lexiscan 03/10/2014 Appointment: Lita Barakat WPtel: [address] [place] [address] FOLLOW UP 03/10/2014 Patient Education: Patient Medication Summary Completed 03/10/2014 Visit Plan: Shoulder injection as above Back brace to use when doing any lifting for stability 12/16/2013 Appointment: Lita Barakat WPtel: [address] [place] [address] ACUTE ILLNESS 12/16/2013 Patient Education: Patient Medication Summary Completed 12/16/2013 Visit Plan: Continue symbicort and Turdo za Salt water gargles Omnicef 300mg 2 po daily for 1wk Phenergan with codeine 10/09/2013 Appointment: Lita Barakat WPtel: [address] [place], [place] [phone] WORK IN 10/09/2013 Patient Education: Patient Medication Summary Completed 10/09/2013 Appointment: Ruchi Buchanan WPtel: [address] [place], [place] [phone] ACUTE ILLNESS 09/18/2013 Patient Education: Patient Medication Summary Completed 09/18/2013 Visit Plan: Check on repeat CXR Finish a bx Start Tradjenta to replace metformin 08/13/2013 Appointment: Lita Barakat WPtel: [address] [place], [place] [phone] 08/12 Hospital Follow Up 08/13/2013 Patient Education: Patient Medication Summary Completed 08/13/2013 Visit Plan: Admit to hospital 08/06/2013 Appointment: Stephanie Rios WPtel: [address] [place] [address] ACUTE ILLNESS 08/06/2013 Patient Education: Patient Medication Summary Completed 08/06/2013 Visit Plan: Continue current meds Contin ue accuchecks daily Proceed with stress test due to high risk for CAD 07/16/2013 Appointment: Lita Barakat WPtel: [address] [place] [address] FOLLOW UP 07/16/2013 Patient Education: Patient Medication Summary Completed 07/16/2013 Appointment: Lita Barakat WPtel: [address] [place] [address] LAB 06/25/2013 Patient Education: Patient Medication Summary Completed 06/25/2013 Visit Plan: prednisone and azithromycin. Doing CBC and mycoplasma blood draw. Will continue inhaler and albuterol breathing treatments. 04/09/2013 Appointment: Kimberly Villalba WPtel: [address] [place], [place] [phone] ACUTE ILLNESS 04/09/2013 Patient Education: Patient Medication Summary Completed 04/09/2013 Appointment: Lita Barakat WPtel: [address] [place], [place] [phone] ACUTE ILLNESS 02/11/2013 Patient Education: Patient Medication Summary Completed 02/11/2013 Appointment: Ruchi Buchanan WPtel: [address] [place] [address] ACUTE ILLNESS 01/31/2013 Patient Education: Patient Medication Summary Completed 01/31/2013 Visit Plan: Cefdinir and medrol dose pac k. Codeine/guiaf cough syrup. Has colonoscopy on Sunday. Pt. is to notify if fever occurs or symptoms worsen. Hydration and rest. 01/20/2013 Appointment: Kimberly Villalba WPtel: [address] [place] [address] ACUTE ILLNESS 01/20/2013 Patient Education: Patient Medication Summary Completed 01/20/2013 Visit Plan: Scopalamine patch and vestib ular exercises 12/19/2012 Appointment: Lita Barakat WPtel: [address] [place] [address] ACUTE ILLNESS 12/19/2012 Patient Education: Patient Medication Summary Completed 12/19/2012 Visit Plan: Dr. Swanson consult if no impr ovement in hearing. Pt. reports he will notify if no better in one week. Willam consult for skin lesion. 10/21/2012 Appointment: Kimberly Vilallba WPtel: [address] [place] [address] ACUTE ILLNESS 10/21/2012 Patient Education: Patient Medication Summary Completed 10/21/2012 Appointment: Lita Barakat WPtel: [address] [place], [place] [phone] [place] LAB 09/19/2012 Patient Education: Patient Medication Summary Completed 09/19/2012 Visit Plan: Check fasting lab in AM--CMP , Lipids, HbA1C 09/18/2012 Appointment: Lita Barakat WPtel: [address] [place] [address] FOLLOW UP 09/18/2012 Patient Education: Patient Medication Summary Completed 09/18/2012 Appointment: Lita Barakat WPtel: [address] [place] [address] appt time scheduled sooner FOLLOW UP 09/05 Visit Plan: Doxycycline and Prednisone I ncrease SVN to QID Add back Symbicort 160/4.5 2 p BID 08/28/2012 Appointment: Lita Barakat WPtel: [address] [place], [place] [phone] [place] FOLLOW UP 08/28/2012 Patient Education: Patient Medication Summary Completed 08/28/2012 Appointment: Lita Barakat WPtel: [address] [place] [address] Annual Well Visit 07/10/2012 Patient Education: Patient Medication Summary Completed 07/10/2012 Visit Plan: Finish Z-pack Add Nasonex Ad d Meclizine Vestibular exercises Continue current meds and accuchecks Check lab and fwup in 4mos 05/09/2012 Appointment: Lita Barakat WPtel: [address] [place] [address] number no longer works FOLLOW UP 2 Patient Education: Patient Medication Summary Completed 05/09/2012 Appointment: Lita Barakat WPtel: [address] [place], [place] [phone] LAB 05/06/2012 Patient Education: Patient Medication Summary Completed 05/06/2012 Appointment: Lita Barakat WPtel: [address] [place] [phone] [place] LAB 05/02/2012 Appointment: Lita Barakat WPtel: [address] [place], [place] [phone] [place] INJECTION 02/05/2012 Patient Education: Patient Medication Summary Completed 02/05/2012 Visit Plan: cefdinir. Will focus on rest and fluids. Pt. reports he is using breathing treatments as needed. Pt. will monitor for worsening symptoms or fever. 10/02/2011 Appointment: Kimberly Villalba WPtel: [address] [place], [place] [phone] ACUTE ILLNESS 10/02/2011 Patient Education: Patient Medication Summary Completed 10/02/2011 Appointment: Lita Barakat WPtel: [address] [place], [place] [id number] [place] INJECTION 08/10/2011 Patient Education: Patient Medication Summary Completed 08/10/2011 Visit Plan: Continue current meds Restar t Advair Restart exercise Flu shot given 08/07/2011 Appointment: Lita Barakat WPtel: [address] [place], [place] [phone] [place] FOLLOW UP 08/07/2011 Patient Education: Patient Medication Summary Completed 08/07/2011 Appointment: Lita Barakat WPtel: [address] [place], [place] [phone] [place] LAB 07/26/2011 Patient Education: Patient Medication Summary Completed 07/26/2011 Visit Plan: ALEKSANDER Carmen Continue Metformin but change to BID Add Lantus 25u sc q PM BS readings in 1wk 04/03/2011 Appointment: Lita Barakat WPtel: [address] [place], [place] [phone] ACUTE ILLNESS 04/03/2011 Patient Education: Patient Medication Summary Completed 04/03/2011 Appointment: Lita Barakat WPtel: [address] [place] [phone] [place] INJECTION 01/19/2011 Patient Education: Patient Medication Summary Completed 01/19/2011 Appointment: Lita Barakat WPtel: [address] [place], [place] [phone] ACUTE ILLNESS 01/18/2011 Patient Education: Patient Medication Summary Completed 01/18/2011 Appointment: Lita Barakat WPtel: [address] [place] [phone] [place] INJECTION 12/21/2010 Patient Education: Patient Medication Summary Completed 12/21/2010 Appointment: Lita Barakat WPtel: [address] [place], [place] [phone] [place] FOLLOW UP 12/19/2010 Patient Education: Patient Medication Summary Completed 12/19/2010 Appointment: Lita Barakat WPtel: [address] [place] [phone] [place] LAB 12/07/2010 Patient Education: Patient Medication Summary Completed 12/07/2010 Appointment: Kimberly Villalba WPtel: [address] [place], [place] [phone] ACUTE ILLNESS 04/05/2010 Patient Education: Patient Medication Summary Completed 04/05/2010 Appointment: Lita Barakat WPtel: [address] [place] [phone] WORK IN 03/14/2010 Patient Education: Patient Medication Summary Completed 03/14/2010 Appointment: Lita Barakat WPtel: [address] [place], [place] [phone] [place] LAB 03/02/2010 Visit Plan: HbA1C in 3mos. Continue Accu checks BID alternating times. Switch lexapro to celexa 01/13/2010 Appointment: Lita Barakat WPtel: [address] [place] [address] FOLLOW UP 01/13/2010 Patient Education: Patient Medication Summary Completed 01/13/2010 Appointment: Lita Barakat WPtel: [address] [place], [place] [phone] [place] FOLLOW UP 01/11/2010 Visit Plan: Pt. will continue the Avalox and Doxycycline regimen as prescribed the previous day. He has been advised to continue inhalers, breathing treatments and oxygen therapy for at least the weekend. Moderate activity without strenuous exercise. The pt. will seek immediate re-eval if his symptoms worsen. 12/23/2009 Appointment: Kimberly Villalba WPtel: [address] [place], [place] [phone] [place] FOLLOW UP 12/23/2009 Patient Education: Patient [...] morning. 12/22/2009 Appointment: Kimberly Villalba WPtel: [address] [place] [address] ACUTE ILLNESS 12/22/2009 Patient Education: Patient Medication Summary Completed 12/22/2009 Appointment: Kimberly Villalba WPtel: [address] [place] [address] FOLLOW UP 12/21/2009 Appointment: Lita Barakat WPtel: [address] [place] [address] INJECTION 12/16/2009 Patient Education: Patient Medication Summary Completed 12/16/2009 Appointment: Kimberly Villalba WPtel: [address] [place] [address] ACUTE ILLNESS 12/13/2009 Patient Education: Patient Medication Summary Completed 12/13/2009 Care Plan: X-RAY EXAM OF SHOULDER lt shoulder (pain ra diates across the shoulder) Hand carried orders to [facility] LOINC : 75902-1 Ordered 12/13/2009 Care Plan: X-RAY EXAM THORAC SPINE 2VWS Hand carried order LOINC : 88089-8 Ordered 12/13/2009 Care Plan: X-RAY EXAM RIBS UNI 2 VIEWS Posterior ribs of lt. side Pt. hand carries order to [facility] LOINC : 81301-8 Ordered 12/13/2009 Referral: José Miguel Swanson WPtel: [address] [address] [place] Referral Appointment Requested Referral: José Miguel Swanson WPtel: [address] [address] [place] Referral Appointment Requested Referral: Chandu Quarles WPtel: [address] Quarles for screening colonoscopy. Diane gerber notified that [facility] office will book appt with him Initiated Referral: Santosh Machado WPtel: #[address] [facility] [place] [address] [address] [place] Referral Appointment Requested Referral: José Miguel Swanson WPtel: [address] [address] [place] Referral Initiated Referral: Lopez Chacon [facility] C&D [address] Referral Initiated Referral: Demetrius Benjamin WPtel: [address] [address] [place] Referral Appointment Requested Referral: José Miguel Swanson WPtel: [address] [address] [place] Referral Appointment Requested Referral: José Miguel Swanson WPtel: [address] [address] [place] Referral Initiated Instructions Comment . Saline nasal flushes prn. Tylenol/Motr in prn headache. Notify if persists/symptoms worsening. . MRI at [facility] Hydrocodone 5.325 1 po q 4-6 [...]
[2020-03-28 15:57] LABS: BASOPHILS % (AUTO) 0 % (0-10); EOSINOPHILS # (AUTO) 0.2 10^3/uL (0.0-0.3); EOSINOPHILS % (AUTO) 3 % (0-10); HEMATOCRIT 37 % (40-54); HEMOGLOBIN 12.3 G/DL (13.3-17.7); LYMPHOCYTES # (AUTO) 0.7 X 10^3 (1.0-4.0); LYMPHOCYTES % (AUTO) 13 % (12-44); MEAN CORPUSCULAR HEMOGLOBIN 31 PG (25-34); MEAN CORPUSCULAR HGB CONC 33 G/DL (32-36); MEAN CORPUSCULAR VOLUME 94 FL (80-99); MEAN PLATELET VOLUME 9.5 FL (7.4-10.4); MONOCYTES # (AUTO) 0.8 X 10^3 (0.0-1.0); MONOCYTES % (AUTO) 15 % (0-12); NEUTROPHILS # (AUTO) 3.7 X 10^3 (1.8-7.8); NEUTROPHILS % (AUTO) 69 % (42-75); PLATELET COUNT 168 10^3/uL (130-400); RED CELL DISTRIBUTION WIDTH 14.2 % (10.0-14.5); WHITE BLOOD COUNT 5.4 10^3/uL (4.3-11.0)
--- OUTSIDE RECORDS SUMMARY | 2020-03-28 15:57 | XMS REPORT | CCD ---
Author Author Leandro Barakat D.O. 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 Name Role Phone Lita Barakat D.O., PP Unavailable CCM Unavailable Summary Purpose Interface Exchange Insurance Providers Payer name Policy type / Coverage type Covered republican ID Effective Begin Date Effective End Date [employer] MEDICARE Medicare Part B [id number] 2019 Unknown Family history Brother Diagnosis Age At Onset Cancer Unknown Father Diagnosis Age At Onset Heart disease Unknown Mother Diagnosis Age At Onset Heart disease Unknown Social History Social History Element Codes Description Effective Dates Tobacco history SNOMED CT: 8238290 Former smoker quit 15 years ago 08/07/2011 [...] R07.9 06/22/2016 Active 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: [...] unit/mL (3 mL) sub cutaneous pen RxNorm: 838573 INJECT 20 UNITS SQ QD 02/26/2020 03/21/2020 Active losartan 100 mg tablet RxNorm: 745215 1TD 02/03/2020 05/02/2020 Active Sinemet CR 50 mg-200 mg tablet,extended release RxNorm: 8343 41 1 Tablet(s) Oral three times a day 02/02/2020 07/31/2020 Active Generic For:*S INEMET CR 50/200 TABLET SA 07/08/2018 3:09:11 PM hydrocodone 10 mg-acetaminophen 325 mg tablet RxNorm: 648692 1 Tablet(s) Oral Q4H as needed for pain 01/29/2020 No Stop Date Active ipratropium 0.5 mg-albuterol 3 mg (2.5 mg base)/3 mL n ebulization soln RxNorm: 7981087 USE 1 VIAL IN NEBULIZER Q4H (THIS REPLACES ALBUTEROL S OLUTION) 01/08/2020 02/06/2020 Inactive prednisone 20 mg tablet RxNorm: 037096 1 Tablet(s) Oral two remy es a day 12/25/2019 01/01/2020 Inactive Levemir FlexTouch U-100 Insulin 100 unit/mL (3 mL) sub cutaneous pen RxNorm: 760819 10 Unit(s) Subcutaneous every night at bedtime 12/22/2019 N o Stop Date Active baclofen 10 mg tablet RxNorm: 105107 1 Tablet(s) Oral QPM for p ain/spasm 12/22/2019 01/21/2020 Inactive ipratropium 0.5 mg-albuterol 3 mg (2.5 mg base)/3 mL n ebulization soln RxNorm: 3943502 USE 1 VIAL IN NEBULIZER Q4H (THIS REPLACES ALBUTEROL S OLUTION) 11/27/2019 12/16/2019 Inactive hydrocodone 10 mg-acetaminophen 325 mg tablet RxNorm: 721235 1 Tablet(s) Oral Q4H as needed for pain 11/13/2019 01/28/2020 Inactive Seroquel 50 mg tablet RxNorm: 196316 1 Tablet(s) Oral QPM as ne eded for sleep 10/07/2019 12/21/2019 Inactive ropinirole 4 mg tablet RxNorm: 278685 3 TABLET(S) BY [facility] DAILY AT BEDTIME FOR RESTLESS LEGS 09/29/2019 12/27/2019 Inactive Generic For:REQU IP 4 MG TABLET 09/29/2019 7:52:42 AM N O T I C E Last quantity doesn't match original quantity ropinirole 4 mg tablet RxNorm: 136217 3 TABLET(S) BY [facility] DAILY AT BEDTIME FOR RESTLESS LEGS 09/26/2019 09/28/2019 Inactive Generic For:REQU IP 4 MG TABLET 09/26/2019 9:08:48 AM N O T I C E Last quantity doesn't match original quantity ipratropium 0.5 mg-albuterol 3 mg (2.5 mg base)/3 mL n ebulization soln RxNorm: 3915215 USE 1 VIAL IN NEBULIZER EVERY FOUR HOURS (THIS REPLACES ALBUTEROL SOLUTION) 09/26/2019 10/15/2019 Inactive Generic For:*DUO NEB 2.5-0.5 MG/3 ML SOLN 09/26/2019 9:08:53 AM hydrocodone 10 mg-acetaminophen 325 mg tablet RxNorm: 035125 1 Tablet(s) Oral Q4H as needed for pain 09/09/2019 09/09/2019 Inactive hydrocodone 10 mg-acetaminophen 325 mg tablet RxNorm: 018792 1 Tablet(s) Oral Q4H as needed for pain 09/09/2019 09/08/2019 Inactive ondansetron HCl 4 mg tablet RxNorm: 620825 1 Tablet(s) Oral QPM for nausea 08/12/2019 10/10/2019 Inactive ipratropium 0.5 mg-albuterol 3 mg (2.5 mg base)/3 mL n ebulization soln RxNorm: 3961722 1 Unit Dose INH Q4H 08/12/2019 09/25/2019 Inactive replaces albuterol solution Augmentin 875 mg-125 mg tablet RxNorm: 013904 1 Tablet(s) Oral two times a day 08/07/2019 08/17/2019 Inactive prednisone 20 mg tablet RxNorm: 282077 1 Tablet(s) Oral QD 08/05/2008/04/2019 Inactive prednisone 20 mg tablet RxNorm: 471562 1 Tablet(s) Oral QD 08/05/2008/06/2019 Inactive Levaquin 500 mg tablet RxNorm: 064704 1 Tablet(s) Oral QD Replaces azithromycin (z-pack) 07/31/2019 08/05/2019 Inactive Levaquin 500 mg tablet RxNorm: 445161 1 Tablet(s) Oral QD Replaces azithromycin (z-pack) 07/21/2019 07/26/2019 Inactive Levaquin 500 mg tablet RxNorm: 545971 1 Tablet(s) Oral QD Replaces azithromycin (z-pack) 07/21/2019 07/20/2019 Inactive Zithromax Z-Gui 250 mg tablet RxNorm: 641322 Tablet(s) Oral 019 07/22/2019 Inactive Zithromax Z-Gui 250 mg tablet RxNorm: 775586 Tablet(s) Oral 07/15/2019 Inactive Symbicort 160 mcg-4.5 mcg/actuation HFA aerosol inhaler RxNo rm: 4677913 2 Puff(s) Inhalation two times a day 07/14/2019 07/14/2019 Inactive Tessalon Perles 100 mg capsule RxNorm: 376603 1 Capsule(s) Oral Q8H as needed 07/14/2019 08/06/2019 Inactive Seroquel 50 mg tablet RxNorm: 301348 1 Tablet(s) Oral QPM as ne eded for sleep 07/01/2019 10/06/2019 Inactive ondansetron HCl 4 mg tablet RxNorm: 890482 1 Tablet(s) Oral QPM for nausea 06/24/2019 07/24/2019 Inactive Seroquel 25 mg tablet RxNorm: 961840 1 Tablet(s) Oral every nig ht at bedtime 06/19/2019 06/18/2019 Inactive Seroquel 25 mg tablet RxNorm: 550184 1 Tablet(s) Oral every nig ht at bedtime 06/19/2019 06/30/2019 Inactive trazodone 150 mg tablet RxNorm: 895657 1/2 Tablet(s) PO QHS as needed for sleep 06/11/2019 06/17/2019 Inactive replaces PA on doxep in trazodone 150 mg tablet RxNorm: 868498 1/2 Tablet(s) PO QHS as needed for sleep 05/12/2019 06/11/2019 Inactive replaces PA on doxep in Vitamin D3 5,000 unit tablet RxNorm: 851944 1 Tablet(s) PO QD 05/09 No Stop Date Active magnesium oxide 400 mg (241.3 mg magnesium) tablet RxNorm: 1 42316 1 Tablet(s) PO QHS 05/09/2019 No Stop Date Active cyanocobalamin (vit B-12) 1,000 mcg/mL injection solution Rx Norm: 622544 1 injection weekly for 4 weeks 1 Milliliter(s) Inj 05/09/2019 12/21/2019 Inactive ferrous sulfate 325 mg (65 mg iron) tablet RxNorm: 405728 1 Tab let(s) PO QD 05/09/2019 12/21/2019 Inactive ropinirole 4 mg tablet RxNorm: 360588 3 TABLET(S) BY [facility] DAILY AT BEDTIME FOR RESTLESS LEGS 03/26/2019 06/23/2019 Inactive Generic For:REQU IP 4 MG TABLET 03/26/2019 11:23:36 AM N O T I C E Last quantity doesn't match original quantity pantoprazole 40 mg tablet,delayed release RxNorm: 304261 Tablet(s) TAKE 1 TABLET BY MOUTH DAILY FOR STOMACH 03/24/2019 06/21/2019 Inactive Gener ic For:PROTONIX 40MG TAB EC 01/03/2019 1:23:44 PM hydroxyzine HCl 10 mg tablet RxNorm: 294186 1 Tablet(s) PO BID as needed 03/24/2019 04/06/2019 Inactive ipratropium-albuterol 0.5 mg-3 mg(2.5 mg base)/3 mL ne bulization soln RxNorm: 3015446 1 Unit Dose INH Q4H 03/21/2019 No Stop Date Active replaces albuterol solution meclizine 12.5 mg tablet RxNorm: 718181 1 Tablet(s) PO BID as neede d 03/21/2019 12/21/2019 Inactive losartan 100 mg tablet RxNorm: 804037 1 Tablet(s) PO QD replace s lisinopril 03/13/2019 09/08/2019 Inactive fluconazole 100 mg tablet RxNorm: 566626 1 Tablet(s) PO QD 03/13/20 19 03/19/2019 Inactive nystatin 100,000 unit/mL oral suspension RxNorm: 049805 5 Unit( s) PO QID 03/13/2019 03/26/2019 Inactive tramadol 50 mg tablet RxNorm: 073642 1 Tablet(s) PO TID as needed for pain TAKE 2 TABS OF EXTRA STRENGTH TYLENOL WITH EACH DOSE 03/10/2019 04/06/2019 Inactive Generic For:*ULTRAM 50 MG TABLET 01/15/2019 4:55:26 PM Sinemet CR 50 mg-200 mg tablet,extended release RxNorm: 8343 41 1 Tablet(s) PO TID 02/26/2019 08/24/2019 Inactive Generic For:*SIN EMET CR 50/200 TABLET SA 07/08/2018 3:09:11 PM trazodone 150 mg tablet RxNorm: 858720 1/2 Tablet(s) PO QHS as needed for sleep 02/13/2019 02/12/2019 Inactive trazodone 150 mg tablet RxNorm: 153358 1/2 Tablet(s) PO QHS as needed for sleep 02/13/2019 02/25/2019 Inactive replaces PA on doxep in doxepin 10 mg capsule RxNorm: 7214296 1-2 Capsule(s) PO QHS prn sleep 02/13/2019 02/13/2019 Inactive Novolog U-100 Insulin aspart 100 unit/mL subcutaneous soluti on RxNorm: 754215 INJECT 10 UNIT(S) SUBCUTANEOUSLY BEFORE MEALS 01/31/2019 05/30/2019 In active 01/31/2019 1:39:10 PM ipratropium-albuterol 0.5 mg-3 mg(2.5 mg base)/3 mL ne bulization soln RxNorm: 2829707 1 Unit Dose INH Q4H 01/17/2019 03/20/2019 Inactive replaces albuterol solution tramadol 50 mg tablet RxNorm: 503902 1 Tablet(s) PO TID as needed for pain TAKE 2 TABS OF EXTRA STRENGTH TYLENOL WITH EACH DOSE 01/15/2019 02/03/2019 Inactive Generic For:*ULTRAM 50 MG TABLET 01/15/2019 4:55:26 PM Sinemet CR 50 mg-200 mg tablet,extended release RxNorm: 8343 41 1 Tablet(s) PO BID 01/03/2019 02/25/2019 Inactive Generic For:*SIN EMET CR 50/200 TABLET SA 07/08/2018 3:09:11 PM losartan 100 mg tablet RxNorm: 415547 1 Tablet(s) PO QD replace s lisinopril 01/03/2019 03/12/2019 Inactive Symbicort 160 mcg-4.5 mcg/actuation HFA aerosol inhaler RxNo rm: 7494272 2 Puff(s) INH BID 01/03/2019 01/02/2019 Inactive pantoprazole 40 mg tablet,delayed release RxNorm: 282804 TAKE 1 TABLET BY MOUTH DAILY FOR STOMACH 01/03/2019 03/23/2019 Inactive Generic For:[place] OTONIX 40MG TAB EC 01/03/2019 1:23:44 PM nystatin 100,000 unit/mL oral suspension RxNorm: 130823 Unit(s) 5 Unit(s) PO QID swish and spit 01/02/2019 11/11/2019 Inactive Incruse Ellipta 62.5 mcg/actuation powder for inhalation RxN orm: 2015391 1 Capsule(s) INH QD 12/25/2018 12/21/2019 Inactive Tessalon Perles 100 mg capsule RxNorm: 196841 1 Capsule(s) PO T ID for cough 12/25/2018 02/25/2019 Inactive Medrol (Gui) 4 mg tablets in a dose pack RxNorm: 009759 Tablet(s) PO Use as directed 12/23/2018 01/02/2019 Inactive Levemir FlexTouch U-100 Insulin 100 unit/mL (3 mL) sub cutaneous pen RxNorm: 709668 20 Unit(s) SQ QD with pen needles 12/13/2018 05/11/2019 Inactiv e prednisone 20 mg tablet RxNorm: 310493 1 Tablet(s) PO QD 12/12/2018 0 12/11/2018 Inactive prednisone 20 mg tablet RxNorm: 982676 1 Tablet(s) PO QD 12/12/2018 0 12/16/2018 Inactive promethazine 6.25 mg-codeine 10 mg/5 mL syrup RxNorm: 989555 5 Milliliter(s) PO QHS as needed for cough 12/09/2018 12/18/2018 Inactive cefdinir 300 mg capsule RxNorm: 363673 1 Capsule(s) PO BID 12/10/19 19 12/18/2018 Inactive fluconazole 100 mg tablet RxNorm: 474479 1 Tablet(s) PO QD 12/06/19 19 12/08/2018 Inactive ropinirole 4 mg tablet RxNorm: 417429 3 Tablet(s) PO QHS for re stless legs 12/04/2018 03/03/2019 Inactive Novolog U-100 Insulin aspart 100 unit/mL subcutaneous soluti on RxNorm: 977721 INJECT 10 UNIT(S) SUBCUTANEOUSLY BEFORE MEALS 12/04/2018 01/30/2019 In active 12/04/2018 10:02:42 AM nystatin 100,000 unit/mL oral suspension RxNorm: 685926 5 Unit(s) PO QID swish and spit 11/25/2018 12/18/2018 Inactive ropinirole 4 mg tablet RxNorm: 001127 3 Tablet(s) PO QHS for re stless legs 11/04/2018 12/03/2018 Inactive prednisone 20 mg tablet RxNorm: 437797 1 Tablet(s) PO BID 10/23/2018 10/29/2018 Inactive ropinirole 4 mg tablet RxNorm: 693497 3 Tablet(s) PO QHS for re stless legs 10/14/2018 11/04/2018 Inactive pantoprazole 40 mg tablet,delayed release RxNorm: 621515 1 Tablet(s) PO QD forstomach 10/10/2018 01/02/2019 Inactive Symbicort 160 mcg-4.5 mcg/actuation HFA aerosol inhaler RxNo rm: 8963825 2 Puff(s) INH BID 10/10/2018 01/03/2019 Inactive Novolog U-100 Insulin aspart 100 unit/mL subcutaneous soluti on RxNorm: 607513 INJECT 10 UNIT(S) SUBCUTANEOUSLY BEFORE MEALS 10/10/2018 12/03/2018 In active 10/10/2018 11:30:01 AM Sinemet CR 50 mg-200 mg tablet,extended release RxNorm: 8343 41 1 Tablet(s) PO BID 09/26/2018 01/03/2019 Inactive Generic For:*SIN EMET CR 50/200 TABLET SA 07/08/2018 3:09:11 PM ropinirole 4 mg tablet RxNorm: 826909 2 Tablet(s) PO QHS for re stless legs 09/18/2018 10/13/2018 Inactive metformin ER 1,000 mg tablet,extended release 24hr RxNorm: 1 916833 1 Tablet(s) PO BID 09/09/2018 12/18/2018 Inactive ropinirole 4 mg tablet RxNorm: 602672 2 Tablet(s) PO QHS for re stless legs 08/21/2018 09/17/2018 Inactive doxycycline hyclate 100 mg capsule RxNorm: 1709397 1 Capsule(s) PO BID 08/07/2018 08/13/2018 Inactive ropinirole 4 mg tablet RxNorm: 283053 1 Tablet(s) PO QHS replac es 1mg dose 08/07/2018 08/20/2018 Inactive ropinirole 2 mg tablet RxNorm: 944335 TAKE 3 TABLETS BY MOUTH DAILY AT BEDTIME DO NOT EXCEED 3 TABLETS PER DAY!!!! 07/31/2018 08/06/2018 Inactive Generic For:REQUIP 2 MG TABLET 07/30/2018 3:50:28 PM Symbicort 160 mcg-4.5 mcg/actuation HFA aerosol inhaler RxNo rm: 9916974 2 Puff(s) INH BID 07/12/2018 10/09/2018 Inactive Sinemet CR 50 mg-200 mg tablet,extended release RxNorm: 8343 41 TAKE 1 TABLET BY MOUTH TWICE DAILY 07/08/2018 09/26/2018 Inactive Generic For:*S INEMET CR 50/200 TABLET SA 07/08/2018 3:09:11 PM losartan 100 mg tablet RxNorm: 466792 1 Tablet(s) PO QD replace s lisinopril 06/17/2018 12/13/2018 Inactive Novolog U-100 Insulin aspart 100 unit/mL subcutaneous soluti on RxNorm: 167909 10 Unit(s) SQ AC 06/17/2018 10/09/2018 Inactive albuterol sulfate 2.5 mg/3 mL (0.083 %) solution for n ebulization RxNorm: 342313 Milliliter(s) INH USE 1 VIAL IN NEBULIZE R EVERY FOUR HOURS NEEDED FOR WHEEZING OR SHORTNESS OF BREATH 06/13/2018 01/16/2019 Inactive Generic For:*PROVENTIL 0.83 MG/ML SOLUTN 06/13/2013 2:04:46 PM ropinirole 2 mg tablet RxNorm: 862597 3 Tablet(s) PO QH S DO NOT EXCEED 6MG (3 TABLETS) PER DAY!!!! 06/13/2018 07/31/2018 Inactive atorvastatin 40 mg tablet RxNorm: 869014 Tablet(s) TAKE 1 TABLET BY MOUTH EVERY DAY 05/13/2018 12/18/2018 Inactive Generic For:LIPI TOR 40MG TAB 05/01/2018 8:37:31 AM Sinemet CR 50 mg-200 mg tablet,extended release RxNorm: 8343 41 1 Tablet(s) PO BID 05/08/2018 07/06/2018 Inactive Lidocaine Viscous 2 % mucosal solution RxNorm: 4081438 5 Milliliter(s) PO QID as needed 05/02/2018 08/06/2018 Inactive Diflucan 100 mg tablet RxNorm: 351745 1 Tablet(s) PO QD 05/02/2018 Inactive atorvastatin 40 mg tablet RxNorm: 925316 TAKE 1 TABLET BY MOUTH EVERY DAY 05/01/2018 05/13/2018 Inactive Generic For:LIPITOR 40MG TAB 05/01/2018 8:37:31 AM nystatin 100,000 unit/mL oral suspension RxNorm: 916297 5 Unit(s) PO QID (before meals and at bedtime) 04/24/2018 04/30/2018 Inactive Ventolin HFA 90 mcg/actuation aerosol inhaler RxNorm: 067397 2 Puff(s) INH Q4H as needed one inhaler for home and one inhaler for car 04/23/201812/18 Inactive Mucinex 600 mg tablet, extended release RxNorm: 786418 1 Tablet(s) PO BID for congestion 04/22/2018 05/21/2018 Inactive prednisone 10 mg tablet RxNorm: 219935 Tablet(s) PO as directeds 08/06/2018 Inactive ropinirole 2 mg tablet RxNorm: 775529 3 Tablet(s) PO QH S DO NOT EXCEED 6MG (3 TABLETS) PER DAY!!!! 04/09/2018 05/08/2018 Inactive gabapentin 300 mg capsule RxNorm: 504380 1-2 Capsule(s) PO QHS 02/201804/08/2018 Inactive ropinirole 2 mg tablet RxNorm: 764369 1 Tablet(s) PO QHS 03/28/2018 0 04/08/2018 Inactive gabapentin 300 mg capsule RxNorm: 646818 1-2 Capsule(s) PO QHS 02/2303/29/2018 Inactive gabapentin 300 mg capsule RxNorm: 588232 1-2 Capsule(s) PO QHS 02/2203/13/2018 Inactive gabapentin 300 mg capsule RxNorm: 465222 2 Capsule(s) PO QHS 201703/11/2018 Inactive ropinirole 2 mg tablet RxNorm: 827037 1 Tablet(s) PO QHS 02/28/2018 0 03/28/2018 Inactive ropinirole 2 mg tablet RxNorm: 982387 1 Tablet(s) PO QHS 02/28/2018 0 02/27/2018 Inactive gabapentin 300 mg capsule RxNorm: 589800 1 Capsule(s) PO QHS 201702/27/2018 Inactive pantoprazole 40 mg tablet,delayed release RxNorm: 679005 1 Tablet(s) PO QD forstomach 01/23/2018 05/22/2018 Inactive Voltaren 1 % topical gel RxNorm: 711802 1 Gram(s) TOP QID to ri ght knee 01/23/2018 02/04/2018 Inactive metformin ER 500 mg tablet,extended release 24hr RxNorm: 860 975 2 Tablet(s) PO BID 01/09/2018 12/08/2018 Inactive Requip 1 mg tablet RxNorm: 626946 1 Tablet(s) PO QHS 01/09/201802/27 Inactive prednisone 20 mg tablet RxNorm: 495252 1 Tablet(s) PO T ID for 3 days then 1 po BID for 3 days then one daily for 3 days 01/02/2018 02/03/2018 Inactiv e Levaquin 500 mg tablet RxNorm: 067384 1 Tablet(s) PO QD 01/02/2018 Inactive ProAir HFA 90 mcg/actuation aerosol inhaler RxNorm: 956351 2 Puff(s) INH Q4H as needed 12/28/2017 No Stop Date Active please switch to ventolin if insurance doesn't cover montelukast 10 mg tablet RxNorm: 112306 1 Tablet(s) PO QD 12/28/2017 02/03/2018 Inactive Levaquin 500 mg tablet RxNorm: 193703 1 Tablet(s) PO QD 12/21/2017 Inactive ProAir HFA 90 mcg/actuation aerosol inhaler RxNorm: 238744 2 Puff(s) INH Q4H as needed 12/21/2017 12/27/2017 Inactive please switch to ventolin if insurance doesn't cover doxycycline hyclate 100 mg tablet RxNorm: 166646 1 Tablet(s) PO BID 12/17/2017 12/26/2017 Inactive Levemir FlexTouch U-100 Insulin 100 unit/mL (3 mL) sub cutaneous pen RxNorm: 383843 20 Unit(s) SQ QD with pen needles---Due for labs 12/11/2017 02/03/2018 Inactive Requip 1 mg tablet RxNorm: 162764 1 Tablet(s) PO QHS 12/10/201712/09 Inactive Requip 1 mg tablet RxNorm: 691205 1 Tablet(s) PO QHS 12/10/201701/09 Inactive albuterol sulfate 2.5 mg/3 mL (0.083 %) solution for n ebulization RxNorm: 954071 Milliliter(s) INH USE 1 VIAL IN NEBULIZE R EVERY FOUR HOURS NEEDED FOR WHEEZING OR SHORTNESS OF BREATH 12/05/2017 06/13/2018 Inactive Generic For:*PROVENTIL 0.83 MG/ML SOLUTN 06/13/2013 2:04:46 PM Tudorza Pressair 400 mcg/actuation breath activated RxNorm: 4005277 1 Puff(s) INH BID 12/03/2017 12/10/2017 Inactive Levemir FlexTouch U-100 Insulin 100 unit/mL (3 mL) sub cutaneous pen RxNorm: 886368 10 Unit(s) SQ QD with pen needles---Due for labs 11/16/2017 12/10/2017 Inactive Zofran ODT 4 mg disintegrating tablet RxNorm: 848535 1 Tablet(s) PO Q4H as needed for nausea 10/17/2017 02/04/2018 Inactive Efudex 5 % topical cream RxNorm: 805177 Application TOP QD prn to precancer skin lesions 10/17/2017 02/03/2018 Inactive Sinemet CR 50 mg-200 mg tablet,extended release RxNorm: 8343 41 1 Tablet(s) PO BID 10/17/2017 02/05/2018 Inactive Sinemet CR 50 mg-200 mg tablet,extended release RxNorm: 8343 41 1 Tablet(s) PO QHS 09/25/2017 10/16/2017 Inactive gabapentin 600 mg tablet RxNorm: 026388 1 Tablet(s) PO BID 08/15/20 17 08/14/2017 Inactive gabapentin 600 mg tablet RxNorm: 744432 1 Tablet(s) PO BID 08/15/20 17 12/10/2017 Inactive Novolog U-100 Insulin aspart 100 unit/mL subcutaneous soluti on RxNorm: 964301 10 Unit(s) SQ AC 08/15/2017 02/03/2018 Inactive Novolog 100 unit/mL subcutaneous solution RxNorm: 743576 10 Uni t(s) SQ AC 08/13/2017 08/14/2017 Inactive prednisone 20 mg tablet RxNorm: 426096 2 Tablet(s) PO QD 08/02/2017 1 10/04/2016 Inactive gabapentin 600 mg tablet RxNorm: 996578 Tablet(s) 1 Tab let(s) PO QHS replaces 300mg dose 07/09/2017 08/14/2017 Inactive Breo Ellipta 100 mcg-25 mcg/dose powder for inhalation RxNor m: 6788628 1 Unit Dose INH QD 07/02/2017 08/30/2017 Inactive Tudorza Pressair 400 mcg/actuation breath activated RxNorm: 2359862 1 Puff(s) INH BID 06/18/2017 12/02/2017 Inactive gabapentin 600 mg tablet RxNorm: 891185 1 Tablet(s) PO QHS repl aces 300mg dose 06/14/2017 07/08/2017 Inactive metformin ER 1,000 mg tablet,extended release 24hr RxNorm: 1 754236 1 Tablet(s) PO BID 05/29/2017 01/08/2018 Inactive cyclobenzaprine 5 mg tablet RxNorm: 891219 1 Tablet(s) PO TID 05/2906/07/2017 Inactive metformin ER 1,000 mg tablet,extended release 24hr RxNorm: 8 01323 1 Tablet(s) PO BID 05/25/2017 05/28/2017 Inactive metformin ER 1,000 mg tablet,extended release 24hr RxNorm: 8 14713 1 Tablet(s) PO BID 05/22/2017 05/24/2017 Inactive Amaryl 2 mg tablet RxNorm: 525643 1 Tablet(s) PO BID 05/01/201702/03 Inactive glimepiride 2 mg tablet RxNorm: 611151 1 Tablet(s) PO BID 04/19/2017 02/03/2018 Inactive ferrous sulfate 325 mg (65 mg iron) tablet RxNorm: 196789 1 Tab let(s) PO QHS 04/17/2017 02/03/2018 Inactive Requip 4 mg tablet RxNorm: 275214 1 Tablet(s) PO BID 04/12/201704/11 Inactive Requip 4 mg tablet RxNorm: 813049 1 Tablet(s) PO BID 04/12/201704/15 Inactive Levemir FlexTouch 100 unit/mL (3 mL) subcutaneous insulin pe n RxNorm: 446342 10 Unit(s) SQ QD with pen needles---Due for labs 04/05/2017 11/15/2017 In active Silenor 3 mg tablet RxNorm: 276528 1 Tablet(s) PO QHS 04/05/201709/25 Inactive ropinirole 4 mg tablet RxNorm: 489497 1 Tablet(s) PO QHS 03/29/2017 0 04/01/2017 Inactive ropinirole 4 mg tablet RxNorm: 702291 1 Tablet(s) PO QHS 03/29/2017 0 03/28/2017 Inactive Requip 4 mg tablet RxNorm: 156649 1 Tablet(s) PO QHS 03/28/201704/01 Inactive gabapentin 600 mg tablet RxNorm: 692619 1 Tablet(s) PO QHS repl aces 300mg dose 03/28/2017 04/15/2017 Inactive Requip 4 mg tablet RxNorm: 602441 1 Tablet(s) PO QHS 03/23/201703/27 Inactive gabapentin 600 mg tablet RxNorm: 096500 1 Tablet(s) PO QHS 03/13/20 17 03/12/2017 Inactive gabapentin 600 mg tablet RxNorm: 651072 1 Tablet(s) PO QHS 03/13/20 17 03/27/2017 Inactive gabapentin 300 mg capsule RxNorm: 919384 1 Capsule(s) PO QPM 201603/12/2017 Inactive Generic For:NEURONTIN 300 MG CAPSULE 01/22/2017 10:10:39 AM losartan 100 mg tablet RxNorm: 187208 1 Tablet(s) PO QD replace s lisinopril 02/21/2017 06/17/2018 Inactive gabapentin 300 mg capsule RxNorm: 002935 TAKE 1 CAPSULE BY MOUT H EVERY EVENING 01/22/2017 02/21/2017 Inactive Generic For:NEURONTI N 300 MG CAPSULE 01/22/2017 10:10:39 AM gabapentin 300 mg capsule RxNorm: 652510 1 Capsule(s) PO QPM 201601/21/2017 Inactive Requip 4 mg tablet RxNorm: 806737 1 Tablet(s) PO QHS 12/21/201603/20 Inactive Effient 10 mg tablet RxNorm: 488851 1 Tablet(s) PO QD 12/12/201612/23 Inactive gabapentin 300 mg capsule RxNorm: 505348 1 Capsule(s) PO QPM 201612/03/2016 Inactive gabapentin 300 mg capsule RxNorm: 073766 1 Capsule(s) PO QPM 201612/13/2016 Inactive Requip 4 mg tablet RxNorm: 361025 1 Tablet(s) PO QHS 11/28/201612/21 Inactive atorvastatin 40 mg tablet RxNorm: 552632 Tablet(s) 1 Tablet(s) PO Q D 11/22/2016 08/18/2017 Inactive atorvastatin 40 mg tablet RxNorm: 997876 1 Tablet(s) PO QD 11/23/1911/21/2016 Inactive ropinirole 1 mg tablet RxNorm: 031858 2.5 Tablet(s) PO QPM for legs/sleep 11/14/2016 11/27/2016 Inactive nystatin 100,000 unit/mL oral suspension RxNorm: 506897 5 Unit(s) PO QID swish and spit 10/31/2016 02/03/2018 Inactive fluconazole 100 mg tablet RxNorm: 644483 1 Tablet(s) PO QD 10/31/19 17 11/09/2016 Inactive doxycycline hyclate 100 mg capsule RxNorm: 0962594 1 Capsule(s) PO BID 10/03/2016 10/12/2016 Inactive Levemir FlexTouch 100 unit/mL (3 mL) subcutaneous insulin pe n RxNorm: 169383 10 Unit(s) SQ QD with pen needles 09/18/2016 04/04/2017 Inactive amitriptyline 25 mg tablet RxNorm: 206802 1 Tablet(s) P O QHS as needed for sleep 09/04/2016 10/17/2016 Inactive ropinirole 1 mg tablet RxNorm: 804931 1.5 Tablet(s) PO QPM for legs/sleep 09/04/2016 11/13/2016 Inactive amitriptyline 25 mg tablet RxNorm: 781015 1 Tablet(s) P O QHS as needed for sleep 08/22/2016 09/03/2016 Inactive clopidogrel 75 mg tablet RxNorm: 298884 1 Tablet(s) PO QD 08/10/2016 10/17/2016 Inactive Zoloft 100 mg tablet RxNorm: 043474 2 Tablet(s) PO QHS 08/10/2016 Inactive atorvastatin 40 mg tablet RxNorm: 391925 1 Tablet(s) PO QD 08/10/20 16 10/17/2016 Inactive ropinirole 1 mg tablet RxNorm: 255182 1 Tablet(s) PO QPM for le gs/sleep 08/10/2016 09/03/2016 Inactive losartan 100 mg tablet RxNorm: 870067 1 Tablet(s) PO QD replace s lisinopril 07/20/2016 02/21/2017 Inactive Zofran 4 mg tablet RxNorm: 395972 1 Tablet(s) PO Q4H as needed for nausea 07/06/2016 10/17/2016 Inactive Flagyl 500 mg tablet RxNorm: 229642 1 Tablet(s) PO TID 07/06/2016 Inactive Plavix 75 mg tablet RxNorm: 532804 1 Tablet(s) PO QD 06/08/201607/05 Inactive isosorbide mononitrate ER 30 mg tablet,extended release 24 h r RxNorm: 541917 1 Tablet(s) PO QAM 06/08/2016 08/09/2016 Inactive atorvastatin 40 mg tablet RxNorm: 396205 1 Tablet(s) PO QD 06/08/20 16 08/09/2016 Inactive hydrochlorothiazide 12.5 mg tablet RxNorm: 707678 1 Tablet(s) PO QA M 06/08/2016 07/05/2016 Inactive metformin ER 1,000 mg tablet,extended release 24hr RxNorm: 8 74072 1 Tablet(s) PO BID 06/08/2016 09/05/2016 Inactive metoprolol tartrate 25 mg tablet RxNorm: 014999 1/2 Tablet(s) PO BI D 06/08/2016 08/09/2016 Inactive Zoloft 100 mg tablet RxNorm: 014073 2 Tablet(s) PO QHS 04/03/2016 Inactive metformin ER 1,000 mg tablet,extended release 24hr RxNorm: 8 45887 Tablet(s) 1 Tablet(s) PO QD 03/30/2016 12/18/2018 Inactive Levemir FlexTouch 100 unit/mL (3 mL) subcutaneous insulin pe n RxNorm: 176710 10 Unit(s) SQ QD 03/09/2016 03/08/2016 Inactive Levemir FlexTouch 100 unit/mL (3 mL) subcutaneous insulin pe n RxNorm: 913142 10 Unit(s) SQ QD with pen needles 03/09/2016 03/20/2016 Inactive Mobic 15 mg tablet RxNorm: 848823 1 Tablet(s) PO QD for foot pain 0 02/17/2016 03/17/2016 Inactive Zoloft 100 mg tablet RxNorm: 665300 1 1/2 Tablet(s) PO QHS 01/31/20 16 04/02/2016 Inactive omeprazole 20 mg capsule,delayed release RxNorm: 010210 TAKE 2 CAPSULES BY MOUTH EVERY DAY 01/12/2016 08/09/2016 Inactive Generic For:*CHERYL LOSEC [address] 01/12/2016 8:58:34 AM Zoloft 100 mg tablet RxNorm: 592132 1/2 Tablet(s) PO QH S for 1 week then 1 tablet po q HS 12/30/2015 01/27/2016 Inactive Ventolin HFA 90 mcg/actuation aerosol inhaler RxNorm: 187290 2 Puff(s) INH QID as needed for shortness of breath 12/30/2015 02/03/2018 Inactive [AttnRPh: Saving apply/adjudicate RxGRP:SG20 RxBIN:[id number] RxPCN: ID#:[id number]] metformin ER 1,000 mg tablet,extended release 24hr RxNorm: 8 01111 1 Tablet(s) PO QD 12/20/2015 03/18/2016 Inactive clindamycin 300 mg capsule RxNorm: 052853 1 Capsule(s) PO TID 12/0512/15/2015 Inactive mupirocin 2 % topical cream RxNorm: 031150 TOP to facial lesion s twice daily 11/15/2015 12/15/2015 Inactive cefdinir 300 mg capsule RxNorm: 711190 1 Capsule(s) PO BID 11/15/19 16 11/24/2015 Inactive Medrol (Gui) 4 mg tablets in a dose pack RxNorm: 852966 Tablet(s) PO as directed 10/11/2015 12/15/2015 Inactive albuterol sulfate 2.5 mg/3 mL (0.083 %) solution for n ebulization RxNorm: 882215 INH USE 1 VIAL IN NEBULIZER EVERY FOUR H OURS NEEDED FOR WHEEZING OR SHORTNESS OF BREATH 10/05/2015 10/04/2015 Inactive Generic For:*PRO VENTIL 0.83 MG/ML SOLUTN 06/13/2013 2:04:46 PM doxycycline hyclate 100 mg capsule RxNorm: 0063683 1 Capsule(s) PO BID 10/05/2015 10/14/2015 Inactive albuterol sulfate 2.5 mg/3 mL (0.083 %) solution for n ebulization RxNorm: 147147 Milliliter(s) INH USE 1 VIAL IN NEBULIZE R EVERY FOUR HOURS NEEDED FOR WHEEZING OR SHORTNESS OF BREATH Dx: J44.9 10/05/2015 12/05/2017 Inacti ve Generic For:*PROVENTIL 0.83 MG/ML SOLUTN 06/13/2013 2:04:46 PM albuterol sulfate 2.5 mg/3 mL (0.083 %) solution for n ebulization RxNorm: 384951 3 Milliliter(s) INH USE 1 VIAL IN NEBULI ZER EVERY FOUR HOURS NEEDED FOR WHEEZING OR SHORTNESS OF BREATH 09/06/2015 10/04/2015 Inactive Generic For:*PROVENTIL 0.83 MG/ML SOLUTN 06/13/2013 2:04:46 PM Tradjenta 5 mg tablet RxNorm: 1437060 2 Tablet(s) PO QD 07/22/2015 Inactive albuterol sulfate 2.5 mg/3 mL (0.083 %) solution for n ebulization RxNorm: 590324 3 Milliliter(s) INH USE 1 VIAL IN NEBULI ZER EVERY FOUR HOURS NEEDED FOR WHEEZING OR SHORTNESS OF BREATH 06/29/2015 09/05/2015 Inactive Generic For:*PROVENTIL 0.83 MG/ML SOLUTN 06/13/2013 2:04:46 PM albuterol sulfate 2.5 mg/3 mL (0.083 %) solution for n ebulization RxNorm: 699023 Milliliter(s) INH USE 1 VIAL IN NEBULIZE R EVERY FOUR HOURS NEEDED FOR WHEEZING OR SHORTNESS OF BREATH 06/29/2015 12/04/2017 Inactive Generic For:*PROVENTIL 0.83 MG/ML SOLUTN 06/13/2013 2:04:46 PM doxycycline hyclate 100 mg tablet RxNorm: 013543 1 Tablet(s) PO BID 06/28/2015 07/07/2015 Inactive losartan 100 mg tablet RxNorm: 619845 1 Tablet(s) PO QD -replac es lisinopril 06/14/2015 09/05/2015 Inactive metformin ER 1,000 mg tablet,extended release 24hr RxNorm: 8 32667 1 Tablet(s) PO QD 06/14/2015 09/11/2015 Inactive losartan 100 mg tablet RxNorm: 141274 1 Tablet(s) PO QD -replac es lisinopril 06/14/2015 12/10/2015 Inactive Zocor 20 mg tablet RxNorm: 799956 Tablet(s) Tablet(s) 1 Tablet(s) PO QD -needs lipids labs 06/14/2015 06/14/2015 Inactive atorvastatin 40 mg tablet RxNorm: 143646 1 Tablet(s) PO QD repl aces simvastatin 06/14/2015 12/10/2015 Inactive loratadine 10 mg tablet RxNorm: 232101 Tablet(s) 1 Tablet(s) PO QD for drainage 06/14/2015 06/07/2016 Inactive Celexa 40 mg tablet RxNorm: 404357 1 Tablet(s) PO QD TA KE ONE (1) TABLET BY MOUTH DAILY 06/14/2015 12/29/2015 Inactive Generic For:HARJINDER XA 40 MG TABLET clindamycin 300 mg capsule RxNorm: 907069 2 Capsule(s) PO BID 06/0306/12/2015 Inactive metformin ER 1,000 mg tablet,extended release 24hr RxNorm: 8 38004 1 Tablet(s) PO QD 06/03/2015 06/02/2015 Inactive metformin ER 1,000 mg tablet,extended release 24hr RxNorm: 8 61660 1 Tablet(s) PO QD 06/03/2015 06/13/2015 Inactive mupirocin 2 % topical ointment RxNorm: 658253 TOP apply to open lesion of knee twice daily 06/03/2015 01/30/2016 Inactive Zocor 20 mg tablet RxNorm: 194979 Tablet(s) 1 Tablet(s ) PO QD -needs lipids labs 05/13/2015 06/13/2015 Inactive Celexa 40 mg tablet RxNorm: 503872 1 Tablet(s) PO QD TA KE ONE (1) TABLET BY MOUTH DAILY 05/13/2015 06/13/2015 Inactive Generic For:HARJINDER XA 40 MG TABLET Zocor 20 mg tablet RxNorm: 710749 Tablet(s) 1 Tablet(s ) PO QD -needs lipids labs 02/23/2015 03/24/2015 Inactive loratadine 10 mg tablet RxNorm: 751464 1 Tablet(s) PO QD for dr saenz 12/24/2014 06/13/2015 Inactive Zocor 20 mg tablet RxNorm: 330058 1 Tablet(s) PO QD -needs lipi ds labs 11/17/2014 02/23/2015 Inactive Celexa 40 mg tablet RxNorm: 038364 1 Tablet(s) PO QD 1 Tablet(s) PO QD 1 Tablet(s) PO QD Generic OKAY 11/11/2014 05/13/2015 Inactive Zocor 20 mg tablet RxNorm: 197831 1 Tablet(s) PO QD -needs lipi ds labs 11/11/2014 11/16/2014 Inactive omeprazole 20 mg capsule,delayed release RxNorm: 317642 2 Capsule(s) PO QD TAKE 2 CAPSULES BY MOUTH DAILY 10/27/2014 04/24/2015 Inactive Shena harp For:*PRILOSEC 20 MG CAPSULE trazodone 50 mg tablet RxNorm: 496662 1 1/2 Tablet(s) PO QHS 201412/29/2015 Inactive losartan 100 mg tablet RxNorm: 285040 1 Tablet(s) PO QD -replac es lisinopril 10/26/2014 04/23/2015 Inactive Levaquin 500 mg tablet RxNorm: 054916 1 Tablet(s) PO QD 10/08/2014 Inactive Levaquin 500 mg tablet RxNorm: 687552 1 Tablet(s) PO QD 10/08/2014 Inactive Diflucan 100 mg tablet RxNorm: 229918 1 Tablet(s) PO QD 10/06/2014 Inactive DuoNeb 0.5 mg-3 mg(2.5 mg base)/3 mL solution for nebulizati on RxNorm: 1754315 3 Milliliter(s) INH QID 09/23/2014 08/09/2016 Inactive Ventolin HFA 90 mcg/actuation aerosol inhaler RxNorm: 264340 2 Puff(s) INH QID as needed for shortness of breath 09/21/2014 12/29/2015 Inactive [AttnRPh: Saving apply/adjudicate RxGRP:SG20 RxBIN:[id number] RxPCN: ID#:[id number]] promethazine-codeine 6.25 mg-10 mg/5 mL syrup RxNorm: 147560 1 Teaspoon(s) PO QHS as needed for cough 09/08/2014 09/20/2014 Inactive prednisone 20 mg tablet RxNorm: 683015 1 Tablet(s) PO BID 09/02/2014 09/08/2014 Inactive promethazine-codeine 6.25 mg-10 mg/5 mL syrup RxNorm: 563768 1 Teaspoon(s) PO Q4H 09/02/2014 09/20/2014 Inactive doxycycline monohydrate 100 mg capsule RxNorm: 090838 1 Capsule (s) PO BID 09/02/2014 09/07/2014 Inactive Tessalon Perles 100 mg capsule RxNorm: 467135 1 Capsule (s) PO TID as needed for cough 08/31/2014 09/20/2014 Inactive Actos 15 mg tablet RxNorm: 183478 1 Tablet(s) PO QAM 1 Tablet(s ) PO QAM 08/26/2014 09/20/2014 Inactive loratadine 10 mg tablet RxNorm: 745765 1 Tablet(s) PO QD for dr saenz 08/26/2014 10/26/2014 Inactive Zithromax 500 mg tablet RxNorm: 942931 1 Tablet(s) PO QD 08/25/2014 1 11/01/2013 Inactive Zithromax 500 mg tablet RxNorm: 553162 1 Tablet(s) PO QD 08/25/2014 1 10/25/2013 Inactive Trazadone 75mg Tablet RxNorm: 1 Tablet(s) PO QHS 08/10/20142018 Inactive Zocor 20 mg tablet RxNorm: 431632 1 Tablet(s) PO QD 08/10/20142014 Inactive Trazadone 75mg Tablet RxNorm: 1 Tablet(s) PO QHS as need ed for sleep 08/10/2014 10/08/2014 Inactive Celexa 40 mg tablet RxNorm: 640033 1 Tablet(s) PO QD 1 Tablet(s) PO QD 1 Tablet(s) PO QD Generic OKAY 06/09/2014 10/06/2014 Inactive Actos 15 mg tablet RxNorm: 219943 1 Tablet(s) PO QAM 05/12/201408/26 Inactive lisinopril 20 mg tablet RxNorm: 786577 1 Tablet(s) PO QD 05/12/2014 0 10/26/2014 Inactive TAKE ONE TABLET BY MOUTH EVERY DAY;Gener ic For:*PRINIVIL 20 MG TABLET [AttnRPh: Saving apply/adjudicate RxGRP:SG20 RxBIN:[id number] RxPCN: ID#:[id number]] hydrocodone 5 mg-acetaminophen 325 mg tablet RxNorm: 333993 1 Tablet(s) PO TID as needed for pain for severe pain 04/30/2014 08/09/2014 Inactive hydrocodone 5 mg-acetaminophen 325 mg tablet RxNorm: 634863 1 Tablet(s) PO TID as needed for pain for severe pain 04/17/2014 04/29/2014 Inactive doxycycline hyclate 100 mg capsule RxNorm: 246198 1 Capsule(s) PO BID 03/05/2014 03/04/2014 Inactive doxycycline hyclate 100 mg capsule RxNorm: 710650 1 Capsule(s) PO BID 03/05/2014 03/14/2014 Inactive albuterol sulfate 2.5 mg/3 mL (0.083 %) solution for n ebulization RxNorm: 637711 Milliliter(s) INH USE 1 VIAL IN NEBULIZE R EVERY FOUR HOURS NEEDED FOR WHEEZING OR SHORTNESS OF BREATH 03/02/2014 06/29/2015 Inactive Generic For:*PROVENTIL 0.83 MG/ML SOLUTN 06/13/2013 2:04:46 PM Celexa 40 mg tablet RxNorm: 222448 1 Tablet(s) PO QD 1 Tablet(s) PO QD replaces lexapro. Generic OKAY 01/13/2014 06/09/2014 Inactive Actos 15 mg tablet RxNorm: 407913 1 Tablet(s) PO QAM 01/07/201405/12 Inactive lisinopril 20 mg tablet RxNorm: 167333 1 Tablet(s) PO QD 12/08/2013 0 05/12/2014 Inactive TAKE ONE TABLET BY MOUTH EVERY DAY;Gener ic For:*PRINIVIL 20 MG TABLET cefdinir 300 mg capsule RxNorm: 453986 2 Capsule(s) PO QD 11/10/2013 08/09/2014 Inactive cefdinir 300 mg capsule RxNorm: 153076 2 Capsule(s) PO QD 10/09/2013 10/15/2013 Inactive Actos 15 mg tablet RxNorm: 353908 1 Tablet(s) PO QAM 10/09/201301/06 Inactive doxycycline hyclate 100 mg capsule RxNorm: 8581892 1 Capsule(s) PO Q12H 09/18/2013 09/27/2013 Inactive omeprazole 20 mg capsule,delayed release RxNorm: 415629 2 Capsule(s) PO QD TAKE 2 CAPSULES BY MOUTH DAILY 09/03/2013 03/01/2014 Inactive Generi c For:*PRILOSEC [address] Celexa 40 mg tablet RxNorm: 264417 1 Tablet(s) PO QD re places lexapro. Generic OKAY 09/03/2013 01/13/2014 Inactive Symbicort 160 mcg-4.5 mcg/actuation HFA aerosol inhaler RxNo rm: 6014431 2 Puff(s) INH BID 08/13/2013 03/23/2014 Inactive metformin 1,000 mg tablet RxNorm: 444175 1 Tablet(s) PO BID 013 08/12/2013 Inactive TAKE ONE TABLET BY MOUTH TWI CE DAILY;Generic For:GLUCOPHAGE 1,000 MG TABLET 08/27/12 Thank you Actos 15 mg tablet RxNorm: 300312 1 Tablet(s) PO QAM 06/23/201310/09 Inactive lisinopril 20 mg tablet RxNorm: 659324 1 Tablet(s) PO QD 06/23/2013 0 12/08/2013 Inactive TAKE ONE TABLET BY MOUTH EVERY DAY;Gener ic For:*PRINIVIL 20 MG TABLET albuterol sulfate 2.5 mg/3 mL (0.083 %) solution for n ebulization RxNorm: 407819 Solution for Nebulization INH USE 1 VIAL IN NEBULIZER EVERY FOUR HOURS NEEDED FOR WHEEZING OR SHORTNESS OF BREATH 06/16/2013 03/01/2014 Inactive Generic For:*PROVENTIL 0.83 MG/ML SOLUTN 06/13/2013 2:04:46 PM prednisone 10 mg tablet RxNorm: 215906 1 Tablet(s) PO BID 04/09/2013 04/13/2013 Inactive AndroGel 1.25 gram/actuation (1%) Transdermal Gel Pump RxNorm: 2 95656 TD 04/09/2013 08/09/2014 Inactive APPLY 4 PUMPS OF GEL AT BEDTIME DIRECTED; (Appended: Controlled substance eRx refill - RxReferenceNumber: [id number]) azithromycin 250 mg tablet RxNorm: 766212 2 Tablet(s) PO QD 013 04/16/2013 Inactive Amaryl 2 mg tablet RxNorm: 183434 1 Tablet(s) PO BID N eeds appt in 1 month (around March 21) 02/18/2013 08/12/2013 Inactive Amaryl 2 mg tablet RxNorm: 611713 1 Tablet(s) PO BID 02/18/201302/17 Inactive metformin 1,000 mg tablet RxNorm: 488718 1 Tablet(s) PO BID 013 07/27/2013 Inactive TAKE ONE TABLET BY MOUTH TWI CE DAILY;Generic For:GLUCOPHAGE 1,000 MG TABLET 08/27/12 Thank you Actos 15 mg tablet RxNorm: 871866 1 Tablet(s) PO QAM 02/04/201306/03 Inactive albuterol sulfate 2.5 mg/3 mL (0.083 %) Neb Solution RxNorm: 643310 1 Unit Dose INH Q4H prn wheezing or shortness of breath 01/30/2013 06/15/2013 Inac tive Medrol (Gui) 4 mg tablets in a dose pack RxNorm: 712585 Tablet(s) PO as directed 01/20/2013 07/15/2013 Inactive cefdinir 300 mg capsule RxNorm: 200715 1 Capsule(s) PO BID anti biotic 01/20/2013 01/29/2013 Inactive lisinopril 20 mg tablet RxNorm: 767648 Tablet(s) PO 01/13/20132012 Inactive TAKE ONE TABLET BY MOUTH EVERY DAY;Gener ic For:*PRINIVIL 20 MG TABLET citalopram 40 mg tablet RxNorm: 126527 Tablet(s) PO 01/13/20132013 Inactive TAKE ONE (1) TABLET BY MOUTH DAILY;Gener ic For:CELEXA 40 MG TABLET omeprazole 20 mg capsule,delayed release RxNorm: 361843 Capsule(s) PO TAKE 2 CAPSULES BY MOUTH DAILY 11/15/2012 09/03/2013 Inactive Generic For:*PRILOSEC [address] amoxicillin 875 mg tablet RxNorm: 074938 1 Tablet(s) PO BID 013 10/28/2012 Inactive Actos 30 mg tablet RxNorm: 410364 1 Tablet(s) PO QD 09/23/20122011 Inactive Actos 15 mg tablet RxNorm: 052623 1 Tablet(s) PO QAM 09/23/201209/22 Inactive Actos 15 mg tablet RxNorm: 378374 1 Tablet(s) PO QAM 09/23/201202/04 Inactive prednisone 20 mg tablet RxNorm: 535159 1 Tablet(s) PO BID 08/28/2012 09/03/2012 Inactive doxycycline hyclate 100 mg tablet RxNorm: 5671074 1 Tablet(s) PO BI D 08/28/2012 09/06/2012 Inactive metformin 1,000 mg tablet RxNorm: 847717 Tablet(s) PO 08/27/201201/22 Inactive TAKE ONE TABLET BY MOUTH TWICE DAILY;Gen joshua For:GLUCOPHAGE 1,000 MG TABLET 08/27/12 Thank you citalopram 40 mg tablet RxNorm: 208658 Tablet(s) PO 07/30/20122012 Inactive TAKE ONE (1) TABLET BY MOUTH DAILY;Gener ic For:CELEXA 40 MG TABLET lisinopril 20 mg tablet RxNorm: 652916 Tablet(s) PO 07/30/20122012 Inactive TAKE ONE TABLET BY MOUTH EVERY DAY;Gener ic For:*PRINIVIL 20 MG TABLET AndroGel 1.25 gram/actuation (1%) Transdermal Gel Pump RxNor m: [id number] Gel in Metered-Dose Pump TD 07/09/2012 04/08/2013 Inactive APPLY 4 PUM PS OF GEL AT BEDTIME DIRECTED;WC (Appended: Controlled substance eRx refill - RxReferenceNumber: [id number]) citalopram 40 mg tablet RxNorm: 889060 Tablet(s) PO 07/01/20122011 Inactive TAKE ONE (1) TABLET BY MOUTH DAILY;Gener ic For:CELEXA 40 MG TABLET metformin 1,000 mg tablet RxNorm: 186493 1 Tablet(s) PO BID 012 08/25/2012 Inactive TAKE 1 TABLET BY MOUTH TWICE DAILY;Generic For:GLUCOPHAGE 1,000 MG TABLET meclizine 25 mg Tab RxNorm: 355586 1 Tablet(s) PO QID prn dizziness 05/09/2012 05/18/2012 Inactive lisinopril 20 mg tablet RxNorm: 403049 Tablet(s) PO QD 04/22/2012 Inactive TAKE ONE (1) TABLET BY MOUTH DAILY;Gener ic For:*PRINIVIL 20 MG TABLET metformin 1,000 mg tablet RxNorm: 358422 Tablet(s) PO 03/19/201212/2011 Inactive TAKE 1 TABLET BY MOUTH TWICE DAILY;Gener ic For:GLUCOPHAGE 1,000 MG TABLET cefdinir 300 mg Cap RxNorm: 819573 1 Capsule(s) PO BID 11/28/2011 Inactive cefdinir 300 mg Cap RxNorm: 275428 1 Capsule(s) PO BID 11/01/2011 Inactive citalopram 40 mg tablet RxNorm: 518447 Tablet(s) PO 10/30/20112011 Inactive TAKE ONE (1) TABLET BY MOUTH DAILY;Gener ic For:CELEXA 40 MG TABLET cefdinir 300 mg Cap RxNorm: 170974 1 Capsule(s) PO BID 10/02/2011 Inactive metformin 1,000 mg Tab RxNorm: 519296 1 Tablet(s) PO BID 09/28/2011 0 01/25/2012 Inactive citalopram 40 mg Tab RxNorm: 436582 1 Tablet(s) PO QD 09/28/201111/2011 Inactive omeprazole 20 mg capsule,delayed release RxNorm: 678603 2 Capsu le(s) PO QD 09/28/2011 03/25/2012 Inactive lisinopril 20 mg Tab RxNorm: 843364 Tablet(s) PO 08/21/2011 04/21/2012 Inactive TAKE ONE (1) TABLET BY MOUTH DAILY;Generic For:*PRINIVIL 20 MG TABLET AndroGel 1.25 gram/actuation (1%) Transdermal Gel Pump RxNor m: [id number] Gel in Metered-dose Pump TD 08/21/2011 07/09/2012 Inactive APPLY 4 PUM PS OF GEL AT BEDTIME DIRECTED (Appended: Controlled substance eRx refill - RxReferenceNumber: [id number]) Lantus Solostar 100 unit/mL (3 mL) Sub-Q Insulin Pen RxNorm: 575740 30 Unit(s) SQ QD 06/20/2011 05/08/2012 Inactive Lantus Solostar 100 unit/mL (3 mL) Sub-Q Insulin Pen RxNorm: 387963 30 Unit(s) SQ QD 06/19/2011 06/19/2011 Inactive metformin 1,000 mg Tab RxNorm: 798085 1 Tablet(s) PO BID 05/12/2011 1 11/09/2010 Inactive citalopram 40 mg Tab RxNorm: 957369 1 Tablet(s) PO QD 03/06/201105/2011 Inactive metformin 1,000 mg Tab RxNorm: 574386 1 Tablet(s) PO BID 12/27/2010 0 04/25/2011 Inactive lisinopril 20 mg Tab RxNorm: 441599 Tablet(s) PO TAKE 1 TABLET BY MOUTH EVERY DAY;Generic For:*PRINIVIL 20 MG TABLET 12/26/2010 08/20/2011 Inactive Ceftin 500 mg Tab RxNorm: 691930 1 Tablet(s) PO BID 12/19/20102010 Inactive omeprazole 20 mg Cap, Delayed Release RxNorm: 682602 2 Capsule( s) PO QD 09/13/2010 03/11/2011 Inactive Byetta 10 mcg/0.04 mL per dose Sub-Q Pen Injector RxNorm: 84 7913 1 Unit Dose SQ BID 09/07/2010 10/06/2010 Inactive Celexa 40 mg tablet RxNorm: 145930 1 Tablet(s) PO QD re places lexapro. Generic OKAY 08/09/2010 02/04/2011 Inactive Actos 30 mg Tab RxNorm: 156360 1 Tablet(s) PO QD 08/09/2010 04/02/2011 Inactive lisinopril 20 mg Tab RxNorm: 122478 1 Tablet(s) PO QD 08/09/201011/22 Inactive metformin 1,000 mg Tab RxNorm: 703342 1 Tablet(s) PO BID 08/09/2010 0 12/06/2010 Inactive Metformin 1,000 mg Tab RxNorm: 749442 1 Tablet(s) PO BID 04/26/2010 0 04/25/2010 Inactive metformin 1,000 mg Tab RxNorm: 167974 1 Tablet(s) PO BID 04/26/2010 1 Inactive Lomotil 2.5 mg-0.025 mg Tab RxNorm: 7897066 1 Tablet(s) PO TID 1-2 TABS THREE TIMES DAILY 04/05/2010 04/07/2010 Inactive Mupirocin 2 % Topical Cream RxNorm: 538699 TOP BID 04/05/201003/25 Inactive lisinopril 20 mg Tab RxNorm: 063433 1 Tablet(s) PO QD 03/29/201010/2009 Inactive Actos 30 mg Tab RxNorm: 405244 1 Tablet(s) PO QD 03/29/2010 07/26/2010 Inactive Lisinopril 20 mg Tab RxNorm: 159387 1 Tablet(s) PO QD 02/27/201001/2010 Inactive Actos 30 mg Tab RxNorm: 861239 1 Tablet(s) PO QD 02/14/2010 03/28/2010 Inactive Celexa 40 mg Tab RxNorm: 516847 1 Tablet(s) PO QD replaces lexapro 01/13/2010 07/11/2010 Inactive Cyclobenzaprine 10 mg Tab RxNorm: 722016 1 Tablet(s) PO TID prn spasm 12/23/2009 01/21/2010 Inactive Cyclobenzaprine 10 mg Tab RxNorm: 804891 1 Tablet(s) PO TID 010 12/22/2009 Inactive Hydrocodone-Acetaminophen 7.5 mg-750 mg Tab RxNorm: 653927 1 Ta blet(s) PO Q4-6H 12/23/2009 12/22/2009 Inactive aspirin 81 mg tablet RxNorm: 350098 1 Tablet(s) PO QD No Start Date Active isosorbide mononitrate ER 60 mg tablet,extended release 24 h r RxNorm: 467471 1 Tablet(s) PO QD No Start Date Active amlodipine 5 mg tablet RxNorm: 404714 1 Tablet(s) PO QD No Start Date Active Vitamin D3 1,000 unit tablet RxNorm: 295117 3 Tablet(s) PO QD No St art Date 10/26/2014 Inactive Lexapro 20 mg Tab RxNorm: 138989 1 Tablet(s) PO QD No Start Date 12/24 Inactive loperamide 2 mg tablet RxNorm: 079176 Tablet(s) PO PRN No Start Date 06/07/2016 Inactive Levemir FlexTouch U-100 Insulin 100 unit/mL (3 mL) sub cutaneous pen RxNorm: 365091 22 Unit(s) SQ QD No Start Date 12/21/2019 Inactive Janumet 50 mg-1,000 mg Tab RxNorm: 117742 1 Tablet(s) PO BID No Sta rt Date 01/12/2010 Inactive Levemir U-100 Insulin 100 unit/mL subcutaneous solution RxNo rm: 378071 10 Unit(s) SQ QHS No Start Date 12/08/2018 Inactive Medrol (Gui) 4 mg tablets in a dose pack RxNorm: 108364 Tablet(s) PO Use as directed No Start Date 12/22/2018 Inactive aspirin 325 mg tablet RxNorm: 362087 1 Tablet(s) PO QD No Start Date 08/09/2016 Inactive Efudex 5 % Topical Cream RxNorm: 380025 Application TOP QD prn fto skin lesion No Start Date 08/12/2013 Inactive nitroglycerin 0.4 mg sublingual tablet RxNorm: 913733 Tablet(s) SL as needed No Start Date 12/18/2018 Inactive levofloxacin 500 mg tablet RxNorm: 265692 1 Tablet(s) PO QD No Star t Date 08/06/2018 Inactive ferrous sulfate 325 mg (65 mg iron) tablet RxNorm: 925753 1 Tab let(s) PO QHS No Start Date 04/16/2017 Inactive fluorouracil 5 % topical cream RxNorm: 656709 1 TOP No Start James e 08/06/2018 Inactive Vitamin D3 1,000 unit capsule RxNorm: 925142 1 Capsule(s) PO QD No Start Date 02/03/2018 Inactive Hydrocodone-Acetaminophen 7.5 mg-750 mg Tab RxNorm: 172170 1 Ta blet(s) PO PRN No Start Date 08/09/2014 Inactive pantoprazole 40 mg tablet,delayed release RxNorm: 406078 1 Tabl et(s) PO QD No Start Date 01/22/2018 Inactive omeprazole 20 mg Cap, Delayed Release RxNorm: 512533 2 Capsule( s) PO QD No Start Date 09/12/2010 Inactive DuoNeb 0.5 mg-3 mg(2.5 mg base)/3 mL solution for nebulizati on RxNorm: 1685711 INH Q4H as needed No Start Date 10/22/2018 Inactive Lyrica 75 mg capsule RxNorm: 732697 2 Capsule(s) PO QHS No Start Da te 03/09/2019 Inactive isosorbide mononitrate ER 30 mg tablet,extended release 24 h r RxNorm: 857548 1 Tablet(s) PO QD No Start Date 12/08/2018 Inactive Tradjenta 5 mg tablet RxNorm: 0494781 1 Tablet(s) PO QD No Start Da te 08/09/2016 Inactive Tudorza Pressair 400 mcg/actuation breath activated RxNorm: 0940114 1 Puff(s) INH BID No Start Date 06/17/2017 Inactive Lantus Solostar 100 unit/mL (3 mL) Sub-Q Insulin Pen RxNorm: 028940 30 Unit(s) SQ QD No Start Date 06/18/2011 Inactive Requip 4 mg tablet RxNorm: 036169 1 Tablet(s) PO BID No Start Date Inactive Symbicort 160 mcg-4.5 mcg/actuation HFA aerosol inhaler RxNo rm: 7421283 2 Puff(s) INH BID No Start Date 07/11/2018 Inactive atorvastatin 40 mg tablet RxNorm: 902164 1 Tablet(s) PO QD No Start Date 12/18/2018 Inactive tramadol 50 mg tablet RxNorm: 122238 1 Tablet(s) PO TID as needed for pain (take alone with two extra strength tylenol) No Start Date 01/16/2019 Inactive Symbicort 160 mcg-4.5 mcg/actuation HFA aerosol inhaler RxNo rm: 3609663 2 Puff(s) INH BID No Start Date 08/12/2013 Inactive Vitamin D3 5,000 unit tablet RxNorm: 910916 1 Tablet(s) PO QD No St art Date 05/08/2019 Inactive albuterol sulfate 2.5 mg/3 mL (0.083 %) Neb Solution RxNorm: 140709 1 Unit Dose INH Q4H prn wheezing or shortness of breath No Start Date 01/29/2013 Inac tive Ranexa 500 mg tablet,extended release RxNorm: 981335 1 Tablet(s ) PO BID No Start Date 02/03/2018 Inactive Advair Diskus 500 mcg-50 mcg/dose powder for inhalation RxNo rm: 4095811 1 Puff(s) INH BID No Start Date 08/09/2016 Inactive clopidogrel 75 mg tablet RxNorm: 063874 1 Tablet(s) PO QD No Start Date 05/01/2018 Inactive metformin 1,000 mg Tab RxNorm: 997627 1 Tablet(s) PO BID No Start D ate 08/12/2013 Inactive Silenor 3 mg tablet RxNorm: 936205 1 Tablet(s) PO QHS No Start Date 0 04/04/2017 Inactive Medrol (Gui) 4 mg tablets in a dose pack RxNorm: 591440 Tablet(s) PO as directed No Start Date 01/19/2013 Inactive Requip 4 mg tablet RxNorm: 237486 1 Tablet(s) PO BID No Start Date Inactive clopidogrel 75 mg tablet RxNorm: 163313 1 Tablet(s) PO QD No Start Date 02/03/2018 Inactive Tradjenta 5 mg tablet RxNorm: 2750329 1 Tablet(s) PO QD No Start Da te 02/03/2018 Inactive ProAir HFA 90 mcg/Actuation Aerosol Inhaler RxNorm: 847375 2 Pu ff(s) INH PRN No Start Date 07/09/2012 Inactive Tessalon Perles 100 mg capsule RxNorm: 440389 1 Capsule (s) PO TID as needed for cough No Start Date 08/30/2014 Inactive ferrous sulfate 325 mg (65 mg iron) tablet RxNorm: 086291 1 Tab let(s) PO QD No Start Date 05/08/2019 Inactive pioglitazone 15 mg tablet RxNorm: 410503 1 Tablet(s) PO QD No Start Date 09/20/2014 Inactive Lexapro Oral RxNorm: Oral No Start Date 12/13/2009 Inactive Breo Ellipta 100 mcg-25 mcg/dose powder for inhalation RxNor m: 7016124 1 Puff(s) INH BID No Start Date 05/31/2015 Inactive Tylenol Extra Strength 500 mg tablet RxNorm: 345491 2 T ablet(s) PO QHS along with ropironole No Start Date 12/18/2018 Inactive tramadol 50 mg tablet RxNorm: 253719 1 Tablet(s) PO QID as need ed for pain No Start Date 12/24/2018 Inactive cyclobenzaprine 10 mg Tab RxNorm: 345892 Oral No Start Date 12/22 Inactive Levemir FlexTouch 100 unit/mL (3 mL) subcutaneous insulin pe n RxNorm: 131973 10 Unit(s) SQ QD No Start Date 03/08/2016 Inactive amlodipine 5 mg tablet RxNorm: 587053 1 Tablet(s) PO QD No Start Da te 08/09/2016 Inactive Novolog 100 unit/mL subcutaneous solution RxNorm: 868987 10 Uni t(s) SQ AC No Start Date 08/12/2017 Inactive Levemir FlexTouch 100 unit/mL (3 mL) subcutaneous insulin pe n RxNorm: 201903 25 Unit(s) SQ QPM No Start Date 08/06/2018 Inactive Farxiga 5 mg tablet RxNorm: 8456040 1 Tablet(s) PO QD No Start Date 0 10/05/2014 Inactive DuoNeb 0.5 mg-3 mg(2.5 mg base)/3 mL solution for nebulizati on RxNorm: 4510373 inhalation No Start Date 09/23/2014 Inactive Doxycycline 100 mg Cap RxNorm: 310275 1 Capsule(s) PO BID No Start Date 12/18/2010 Inactive Vitamin B12 1000mcg Tablet RxNorm: 1 Tablet(s) PO QD No Start Date 02/03/2018 Inactive Hydrocodone-Acetaminophen 7.5 mg-750 mg Tab RxNorm: 907322 1 Ta blet(s) PO Q6-8H No Start Date 12/22/2009 Inactive Xigduo XR 5 mg-1,000 mg tablet,extended release RxNorm: 1593 833 1 Tablet(s) PO QD No Start Date 05/31/2015 Inactive cyanocobalamin (vit B-12) 1,000 mcg/mL injection solution Rx Norm: 056220 1 injection weekly for 4 weeks 1 Milliliter(s) Inj No Start Date 05/08/2019 Inactive AndroGel 1.25 g/Actuation (1%) Transdermal Gel Pump RxNorm: 1516424 TD Apply 4pumps daily No Start Date 08/21/2011 Inactive Actoplus MET 15 mg-850 mg Tab RxNorm: 691593 1 Tablet(s) PO BID No Start Date 12/18/2010 Inactive Amaryl 2 mg tablet RxNorm: 098180 1 Tablet(s) PO BID No Start Date Inactive Levemir FlexTouch 100 unit/mL (3 mL) subcutaneous insulin pe n RxNorm: 177399 20 Unit(s) SQ QD No Start Date 06/12/2016 Inactive Symbicort 160 mcg-4.5 mcg/actuation HFA aerosol inhaler RxNo rm: 8356855 2 Puff(s) INH BID No Start Date 02/03/2018 Inactive Symbicort 160 mcg-4.5 mcg/Actuation Inhalation HFA Aer osol Inhaler RxNorm: 4536336 2 INH BID No Start Date 12/18/2010 Inactive Farxiga 5 mg tablet RxNorm: 8272782 1 Tablet(s) PO QD No Start Date 0 03/01/2015 Inactive magnesium oxide 400 mg (241.3 mg magnesium) tablet RxNorm: 1 46162 1 Tablet(s) PO QHS No Start Date 05/08/2019 Inactive Tradjenta 5 mg tablet RxNorm: 3701263 2 Tablet(s) PO QD No Start Da te 07/21/2015 Inactive Levemir FlexTouch U-100 Insulin 100 unit/mL (3 mL) sub cutaneous pen RxNorm: 947736 40 Unit(s) SQ QD No Start Date 08/06/2018 Inactive Sinemet CR 50 mg-200 mg tablet,extended release RxNorm: 8343 41 1 Tablet(s) PO QHS No Start Date 09/24/2017 Inactive metoprolol tartrate 25 mg tablet RxNorm: 625061 1/2 Tablet(s) P O BID No Start Date 02/03/2018 Inactive Requip 4 mg tablet RxNorm: 661957 1 Tablet(s) PO QHS No Start Date Inactive Ventolin HFA 90 mcg/actuation aerosol inhaler RxNorm: 371229 2 Puff(s) INH Q4H as needed No Start Date 04/22/2018 Inactive B12 5,000 mcg-100 mcg sublingual lozenge RxNorm: 167688 IM as d irected No Start Date 05/08/2019 Inactive ropinirole 1 mg tablet RxNorm: 054022 1 Tablet(s) PO QHS No Start D ate 08/06/2018 Inactive Percocet 5 mg-325 mg tablet RxNorm: 4259413 1 Tablet(s) PO Q4H as needed for pain (Dr Rizzo) No Start Date 10/22/2018 Inactive hydrocodone 5 mg-acetaminophen 325 mg tablet RxNorm: 365990 1 Tablet(s) PO TID as needed for pain for severe pain No Start Date 04/16/2014 Inactive scopolamine 1.5 mg 72 hr Transderm Patch RxNorm: 747103 Application TD Q72H for dizziness No Start Date 08/12/2013 Inactive ipratropium-albuterol 0.5 mg-3 mg(2.5 mg base)/3 mL ne bulization soln RxNorm: 5261046 1 Unit Dose INH Q4H No Start Date 01/16/2019 Inactive Medication Administered No Medication Administered data Immunizations Vaccine Codes Date Status Influenza CVX: 135 08/07/2019 Complete Pneumococcal CVX: 33 07/24/2017 Complete Influenza CVX: 135 06/13/2016 Complete Pneumococcal CVX: 133 06/13/2016 Complete Influenza CVX: 141 07/10/2012 Pneumovax Unknown 07/10/2012 Results Observation Observation Code Item Item Code Result Date S ervice Location COMPLETE BLOOD COUNT [id number] WBC 5.5 10e9/L 06/17/20 19 Unknown COMPLETE BLOOD COUNT [id number] RBC 3.92 10e12/L 2018 Unknown COMPLETE BLOOD COUNT [id number] HEMOGLOBIN 10.9 g/dL 06/17/20 19 Unknown COMPLETE BLOOD COUNT 8433711 HEMATOCRIT 34.8 % 06/17/20 19 Unknown COMPLETE BLOOD COUNT [id number] MCV 88.8 fL 9 Unknown COMPLETE BLOOD COUNT 0630566 MCH 27.8 pg 9 Unknown COMPLETE BLOOD COUNT 6886674 MCHC 31.3 g/dL 9 Unknown COMPLETE BLOOD COUNT 7813987 PLATELET COUNT 239 10e9/L Unknown COMPLETE BLOOD COUNT 6102173 Mean Plt Volume 10.0 fL Unknown COMPLETE BLOOD COUNT 3504368 Neut Auto 68.0 % 9 Unknown COMPLETE BLOOD COUNT 2461983 Lymph Auto 14.8 % 06/17/20 19 Unknown COMPLETE BLOOD COUNT 2040533 [place] Auto 13.1 % 9 Unknown COMPLETE BLOOD COUNT 7173131 RDW 14.7 % 9 Unknown COMPLETE BLOOD COUNT 6170008 Eos Auto 3.6 % 9 Unknown COMPLETE BLOOD COUNT 1119286 Baso Auto 0.5 % 9 Unknown COMPLETE BLOOD COUNT 5001990 Neutrophil Abs 3.74 10e9/L Unknown COMPLETE BLOOD COUNT 2312295 Lymphocyte Abs 0.81 10e9/L Unknown COMPLETE BLOOD COUNT 8428398 Monocyte Abs 0.72 10e9/L 05/26 Unknown COMPLETE BLOOD COUNT 4264987 Eosinophil Abs 0.20 10e9/L Unknown COMPLETE BLOOD COUNT 3935302 RDW-SD 46.4 fL 9 Unknown COMPLETE BLOOD COUNT 3425183 Basophil Abs 0.03 10e9/L 05/26 Unknown IRON 92115 Iron 36 ug/dL 06/17/2019 Unknown VITAMIN B 12 03129 VITAMIN B12 540 pg/mL 06/17/2019 Unkn own GFR CALC 2778960 GFR Non Afr Amr 59 mL/min 06/17/2019 Unk nown GFR CALC 3401630 GFR Afr Amr >60 mL/min 06/17/2019 Unknow n ERYTHROCYTE SEDIMENTATION RATE 20668 Sed Rate 34 mm/hr 06/17/2019 Unknown THYROID STIMULATING HORMONE 67804 TSH 2.217 uIU/mL 06/17/2019 Unknown COMPREHENSIVE METABOLIC 75627 AST 12 U/L 2018 Unknown COMPREHENSIVE METABOLIC 15136 ALT 11 U/L 2018 Unknown COMPREHENSIVE METABOLIC 40200 BUN 17 mg/dL 2018 Unknown COMPREHENSIVE METABOLIC 31415 ALBUMIN 3.9 g/dL 2018 Unknown COMPREHENSIVE METABOLIC 40804 CHLORIDE 103 mmol/L 06/17 Unknown COMPREHENSIVE METABOLIC 24319 Bili Total 0.4 mg/dL 06/17 Unknown COMPREHENSIVE METABOLIC 71137 ALK PHOS 51 U/L 2018 Unknown COMPREHENSIVE METABOLIC 63707 SODIUM 140 mmol/L 06/17 Unknown COMPREHENSIVE METABOLIC 26977 CREATININE 1.20 mg/dL 05/26 Unknown COMPREHENSIVE METABOLIC 24115 CALCIUM 8.9 mg/dL 2018 Unknown COMPREHENSIVE METABOLIC 73202 POTASSIUM 4.5 mmol/L 06/17 Unknown COMPREHENSIVE METABOLIC 54514 Total Protein 6.1 g/dL Unknown COMPREHENSIVE METABOLIC 36969 Glucose 108 mg/dL 2018 Unknown COMPREHENSIVE METABOLIC 09339 Bicarbonate 27 mmol/L 05/26 Unknown COMPREHENSIVE METABOLIC 21978 AGAP 10 mmol/L 2018 Unknown FERRITIN 74278 FERRITIN 35.5 ng/mL 05/08/2019 Unknown VITAMIN D TOTAL (25 HYDROXY) 49555 Vitamin D 25 OH 26.0 ng/mL 05/08/2019 Unknown GLYCOSYLATED HEMOGLOBIN TEST 53127 Hgb A1c 56011-7 8.2 % 0 05/08/2019 Unknown MEAN GLUC 9360892 Calc Mean Gluc 189 mg/dL 05/08/2019 Unkn own GFR CALC 3779916 GFR Afr Amr >60 mL/min 05/08/2019 Unknow n GFR CALC 8684540 GFR Non Afr Amr >60 mL/min 05/08/2019 Un known VITAMIN B 12 95072 VITAMIN B12 197 pg/mL 05/08/2019 Unkn own IRON 63438 Iron 34 ug/dL 05/08/2019 Unknown COMPLETE BLOOD COUNT 6207972 WBC 6.9 10e9/L 05/08/20 19 Unknown COMPLETE BLOOD COUNT 4689458 RBC 3.95 10e12/L 2018 Unknown COMPLETE BLOOD COUNT 2431788 HEMOGLOBIN 11.1 g/dL 05/08/20 19 Unknown COMPLETE BLOOD COUNT 1663308 HEMATOCRIT 34.9 % 05/08/20 19 Unknown COMPLETE BLOOD COUNT 9597579 MCV 88.4 fL 9 Unknown COMPLETE BLOOD COUNT 3453097 MCH 28.1 pg 9 Unknown COMPLETE BLOOD COUNT 7765177 MCHC 31.8 g/dL 9 Unknown COMPLETE BLOOD COUNT 5178825 PLATELET COUNT 217 10e9/L Unknown COMPLETE BLOOD COUNT 0275276 Mean Plt Volume 9.6 fL Unknown COMPLETE BLOOD COUNT 5789363 Neut Auto 77.6 % 9 Unknown COMPLETE BLOOD COUNT 4381844 Lymph Auto 10.7 % 05/08/20 19 Unknown COMPLETE BLOOD COUNT 3144639 [place] Auto 10.4 % 9 Unknown COMPLETE BLOOD COUNT 4336246 Eos Auto 1.2 % 9 Unknown COMPLETE BLOOD COUNT 3504787 RDW 14.7 % 9 Unknown COMPLETE BLOOD COUNT 0412544 Baso Auto 0.1 % 9 Unknown COMPLETE BLOOD COUNT 9846772 Neutrophil Abs 5.35 10e9/L Unknown COMPLETE BLOOD COUNT 4759309 Lymphocyte Abs 0.74 10e9/L Unknown COMPLETE BLOOD COUNT 9312338 Monocyte Abs 0.72 10e9/L 04/24 Unknown COMPLETE BLOOD COUNT 3097249 Eosinophil Abs 0.08 10e9/L Unknown COMPLETE BLOOD COUNT 4320977 RDW-SD 46.6 fL 9 Unknown COMPLETE BLOOD COUNT 5256046 Basophil Abs 0.01 10e9/L 04/24 Unknown COMPREHENSIVE METABOLIC 86337 AST 13 U/L 2018 Unknown COMPREHENSIVE METABOLIC 04552 ALT 9 U/L 2018 Unknown COMPREHENSIVE METABOLIC 32901 BUN 18 mg/dL 2018 Unknown COMPREHENSIVE METABOLIC 08360 ALBUMIN 4.3 g/dL 2018 Unknown COMPREHENSIVE METABOLIC 89032 CHLORIDE 99 mmol/L 2018 Unknown COMPREHENSIVE METABOLIC 76660 Bili Total 0.4 mg/dL 05/08 Unknown COMPREHENSIVE METABOLIC 10022 ALK PHOS 48 U/L 2018 Unknown COMPREHENSIVE METABOLIC 63572 SODIUM 137 mmol/L 05/08 Unknown COMPREHENSIVE METABOLIC 21844 CREATININE 0.79 mg/dL 04/24 Unknown COMPREHENSIVE METABOLIC 45094 CALCIUM 9.5 mg/dL 2018 Unknown COMPREHENSIVE METABOLIC 09794 POTASSIUM 4.0 mmol/L 05/08 Unknown COMPREHENSIVE METABOLIC 98120 Total Protein 6.3 g/dL Unknown COMPREHENSIVE METABOLIC 12471 Glucose 232 mg/dL 2018 Unknown COMPREHENSIVE METABOLIC 35626 Bicarbonate 27 mmol/L 04/24 Unknown COMPREHENSIVE METABOLIC 43865 AGAP 11 mmol/L 2018 Unknown GLYCOSYLATED HEMOGLOBIN TEST 87928 Hgb A1c 70535-1 8.9 % 0 12/10/2018 Unknown MEAN GLUC 0872292 Calc Mean Gluc 209 mg/dL 12/10/2018 Unkn own LIPID GROUP 97830 Cholesterol 145 mg/dL 12/09/2018 Unkno wn LIPID GROUP 34487 Triglyceride 235 mg/dL 12/09/2018 Unkn own LIPID GROUP 34296 HDL CHOLESTEROL 40 mg/dL 12/09/2018 U nknown LIPID GROUP 73365 Chol/HDL Ratio 3.62 ratio 12/09/2018 U nknown LIPID GROUP 53466 NON-HDL Chol 105 mg/dL 12/09/2018 Unkn own LIPID GROUP 18133 LDL Cholesterol 58 mg/dL 12/09/2018 U nknown THYROID STIMULATING HORMONE 96238 TSH 1.071 uIU/mL 12/09/2018 Unknown GFR CALC 2244780 GFR Afr Amr >60 mL/min 12/09/2018 Unknow n GFR CALC 4500924 GFR Non Afr Amr >60 mL/min 12/09/2018 Un known COMPLETE BLOOD COUNT 7147090 WBC 7.6 10e9/L 12/10/19 19 Unknown COMPLETE BLOOD COUNT 0129061 RBC 3.97 10e12/L 2018 Unknown COMPLETE BLOOD COUNT 5166522 HEMOGLOBIN 11.4 g/dL 12/10/19 19 Unknown COMPLETE BLOOD COUNT 9032952 HEMATOCRIT 35.8 % 12/10/19 19 Unknown COMPLETE BLOOD COUNT 2503834 MCV 90.2 fL 9 Unknown COMPLETE BLOOD COUNT 6257992 MCH 28.7 pg 9 Unknown COMPLETE BLOOD COUNT 4497915 MCHC 31.8 g/dL 9 Unknown COMPLETE BLOOD COUNT 8187817 PLATELET COUNT 200 10e9/L Unknown COMPLETE BLOOD COUNT 3738170 Mean Plt Volume 10.1 fL Unknown COMPLETE BLOOD COUNT 2530658 Neut Auto 79.0 % 9 Unknown COMPLETE BLOOD COUNT 2018468 Lymph Auto 8.3 % 12/10/19 19 Unknown COMPLETE BLOOD COUNT 1915461 [place] Auto 10.8 % 9 Unknown COMPLETE BLOOD COUNT 4838074 Eos Auto 1.5 % 9 Unknown COMPLETE BLOOD COUNT 4961227 RDW 14.6 % 9 Unknown COMPLETE BLOOD COUNT 0404795 Baso Auto 0.4 % 9 Unknown COMPLETE BLOOD COUNT 8496186 Neutrophil Abs 6.00 10e9/L Unknown COMPLETE BLOOD COUNT 3954360 Lymphocyte Abs 0.63 10e9/L Unknown COMPLETE BLOOD COUNT 8926491 Monocyte Abs 0.82 10e9/L 11/22 Unknown COMPLETE BLOOD COUNT 3013994 Eosinophil Abs 0.11 10e9/L Unknown COMPLETE BLOOD COUNT 4903527 RDW-SD 46.9 fL 9 Unknown COMPLETE BLOOD COUNT 1148211 Basophil Abs 0.03 10e9/L 11/22 Unknown COMPREHENSIVE METABOLIC 38458 AST 11 U/L 2018 Unknown COMPREHENSIVE METABOLIC 40235 ALT 11 U/L 2018 Unknown COMPREHENSIVE METABOLIC 94403 BUN 21 mg/dL 2018 Unknown COMPREHENSIVE METABOLIC 53841 ALBUMIN 4.7 g/dL 2018 Unknown COMPREHENSIVE METABOLIC 13154 CHLORIDE 99 mmol/L 2018 Unknown COMPREHENSIVE METABOLIC 23917 Bili Total 0.4 mg/dL 12/09 Unknown COMPREHENSIVE METABOLIC 84280 ALK PHOS 73 U/L 2018 Unknown COMPREHENSIVE METABOLIC 70407 SODIUM 137 mmol/L 12/09 Unknown COMPREHENSIVE METABOLIC 60962 CREATININE 1.12 mg/dL 11/22 Unknown COMPREHENSIVE METABOLIC 51735 CALCIUM 9.4 mg/dL 2018 Unknown COMPREHENSIVE METABOLIC 83268 POTASSIUM 4.2 mmol/L 12/09 Unknown COMPREHENSIVE METABOLIC 32520 Total Protein 6.8 g/dL Unknown COMPREHENSIVE METABOLIC 49183 Glucose 194 mg/dL 2018 Unknown COMPREHENSIVE METABOLIC 19315 Bicarbonate 30 mmol/L 11/22 Unknown COMPREHENSIVE METABOLIC 49905 AGAP 8 mmol/L 2018 Unknown FREE T4 28345 T4 Free 0.86 ng/dL 12/09/2018 Unknown COMPLETE BLOOD COUNT 4524625 WBC 6.8 10e9/L 04/17/20 17 Unknown COMPLETE BLOOD COUNT 1414868 RBC 3.86 10e12/L 2016 Unknown COMPLETE BLOOD COUNT 8411377 HEMOGLOBIN 9.8 g/dL 04/17/20 17 Unknown COMPLETE BLOOD COUNT 1962649 HEMATOCRIT 31.1 % 04/17/20 17 Unknown COMPLETE BLOOD COUNT 8405356 MCV 80.6 fL 7 Unknown COMPLETE BLOOD COUNT 2069369 MCH 25.4 pg 7 Unknown COMPLETE BLOOD COUNT 4326356 MCHC 31.5 g/dL 7 Unknown COMPLETE BLOOD COUNT 6350748 PLATELET COUNT 247 10e9/L Unknown COMPLETE BLOOD COUNT 8908897 Mean Plt Volume 9.7 fL Unknown COMPLETE BLOOD COUNT 3280812 Neut Auto 74.1 % 7 Unknown COMPLETE BLOOD COUNT 4745137 Lymph Auto 12.0 % 04/17/20 17 Unknown COMPLETE BLOOD COUNT 4170475 [place] Auto 10.8 % 7 Unknown COMPLETE BLOOD COUNT 6252773 RDW 15.9 % 7 Unknown COMPLETE BLOOD COUNT 5727579 Eos Auto 2.5 % 7 Unknown COMPLETE BLOOD COUNT 1914662 Baso Auto 0.6 % 7 Unknown COMPLETE BLOOD COUNT 2207519 Neutrophil Abs 5.04 10e9/L Unknown COMPLETE BLOOD COUNT 5343961 Lymphocyte Abs 0.82 10e9/L Unknown COMPLETE BLOOD COUNT 9624508 Monocyte Abs 0.73 10e9/L 03/25 Unknown COMPLETE BLOOD COUNT 3477132 Eosinophil Abs 0.17 10e9/L Unknown COMPLETE BLOOD COUNT 5014703 RDW-SD 44.4 fL 7 Unknown COMPLETE BLOOD COUNT 6761416 Basophil Abs 0.04 10e9/L 03/25 Unknown MEAN GLUC 2170330 Calc Mean Gluc 223 mg/dL 04/17/2017 Unkn own GFR CALC 8483191 GFR Afr Amr >60 mL/min 04/17/2017 Unknow n GFR CALC 8042140 GFR Non Afr Amr >60 mL/min 04/17/2017 Un known GLYCOSYLATED HEMOGLOBIN TEST 33224 Hgb A1c 54347-8 9.4 % 0 04/17/2017 Unknown IRON 35842 Iron 37 ug/dL 04/17/2017 Unknown VITAMIN B 12 82200 VITAMIN B12 280 pg/mL 04/17/2017 Unkn own THYROID STIMULATING HORMONE 76739 TSH 2.481 uIU/mL 04/17/2017 Unknown COMPREHENSIVE METABOLIC 44506 AST 13 U/L 2016 Unknown COMPREHENSIVE METABOLIC 57591 ALT 12 U/L 2016 Unknown COMPREHENSIVE METABOLIC 61704 BUN 18 mg/dL 2016 Unknown COMPREHENSIVE METABOLIC 18111 ALBUMIN 4.7 g/dL 2016 Unknown COMPREHENSIVE METABOLIC 31308 CHLORIDE 103 mmol/L 04/17 Unknown COMPREHENSIVE METABOLIC 90496 Bili Total 0.4 mg/dL 04/17 Unknown COMPREHENSIVE METABOLIC 21455 ALK PHOS 49 U/L 2016 Unknown COMPREHENSIVE METABOLIC 66633 SODIUM 140 mmol/L 04/17 Unknown COMPREHENSIVE METABOLIC 90719 CREATININE 1.14 mg/dL 03/25 Unknown COMPREHENSIVE METABOLIC 01720 CALCIUM 9.4 mg/dL 2016 Unknown COMPREHENSIVE METABOLIC 92539 POTASSIUM 4.4 mmol/L 04/17 Unknown COMPREHENSIVE METABOLIC 80467 Total Protein 6.7 g/dL Unknown COMPREHENSIVE METABOLIC 15351 Glucose 266 mg/dL 2016 Unknown COMPREHENSIVE METABOLIC 25478 Bicarbonate 25 mmol/L 03/25 Unknown COMPREHENSIVE METABOLIC 85009 AGAP 12 mmol/L 2016 Unknown FERRITIN 90880 FERRITIN 10.0 ng/mL 04/17/2017 Unknown COMPLETE BLOOD COUNT 5640958 WBC 6.8 10e9/L 12/22/19 17 Unknown COMPLETE BLOOD COUNT 5380560 RBC 3.70 10e12/L 2016 Unknown COMPLETE BLOOD COUNT 6891620 HEMOGLOBIN 8.0 g/dL 12/22/19 17 Unknown COMPLETE BLOOD COUNT 9834233 HEMATOCRIT 26.7 % 12/22/19 17 Unknown COMPLETE BLOOD COUNT 5823723 MCV 72.2 fL 7 Unknown COMPLETE BLOOD COUNT 3352885 MCH 21.6 pg 7 Unknown COMPLETE BLOOD COUNT 8558549 MCHC 30.0 g/dL 7 Unknown COMPLETE BLOOD COUNT 8579997 PLATELET COUNT 290 10e9/L Unknown COMPLETE BLOOD COUNT 7363398 Mean Plt Volume 9.3 fL Unknown COMPLETE BLOOD COUNT 7420696 Neut Auto 80.2 % 7 Unknown COMPLETE BLOOD COUNT 6736855 Lymph Auto 9.8 % 12/22/19 17 Unknown COMPLETE BLOOD COUNT 2599518 [place] Auto 8.1 % 7 Unknown COMPLETE BLOOD COUNT 8957227 RDW 17.4 % 7 Unknown COMPLETE BLOOD COUNT 2969135 Eos Auto 1.5 % 7 Unknown COMPLETE BLOOD COUNT 4942820 Baso Auto 0.4 % 7 Unknown COMPLETE BLOOD COUNT 2571210 Neutrophil Abs 5.45 10e9/L Unknown COMPLETE BLOOD COUNT 5609222 Lymphocyte Abs 0.67 10e9/L Unknown COMPLETE BLOOD COUNT 5207971 Monocyte Abs 0.55 10e9/L 11/24 Unknown COMPLETE BLOOD COUNT 4312932 Eosinophil Abs 0.10 10e9/L Unknown COMPLETE BLOOD COUNT 5393432 RDW-SD 44.1 fL 7 Unknown COMPLETE BLOOD COUNT 4112156 Basophil Abs 0.03 10e9/L 11/24 Unknown COMPLETE BLOOD COUNT 4227219 WBC 7.6 10e9/L 12/13/19 17 Unknown COMPLETE BLOOD COUNT 1413416 RBC 3.71 10e12/L 2016 Unknown COMPLETE BLOOD COUNT 2579902 HEMOGLOBIN 8.0 g/dL 12/13/19 17 Unknown COMPLETE BLOOD COUNT 4601292 HEMATOCRIT 27.3 % 12/13/19 17 Unknown COMPLETE BLOOD COUNT 1263044 MCV 73.6 fL 7 Unknown COMPLETE BLOOD COUNT 8993799 MCH 21.6 pg 7 Unknown COMPLETE BLOOD COUNT 5961989 MCHC 29.3 g/dL 7 Unknown COMPLETE BLOOD COUNT 5938938 PLATELET COUNT 330 10e9/L Unknown COMPLETE BLOOD COUNT 7333670 Mean Plt Volume 9.7 fL Unknown COMPLETE BLOOD COUNT 5415289 Neut Auto 73.2 % 7 Unknown COMPLETE BLOOD COUNT 9315647 Lymph Auto 14.5 % 12/13/19 17 Unknown COMPLETE BLOOD COUNT 3213482 [place] Auto 10.5 % 7 Unknown COMPLETE BLOOD COUNT 2864317 RDW 17.3 % 7 Unknown COMPLETE BLOOD COUNT 5167911 Eos Auto 1.3 % 7 Unknown COMPLETE BLOOD COUNT 4558595 Baso Auto 0.5 % 7 Unknown COMPLETE BLOOD COUNT 3221021 Neutrophil Abs 5.56 10e9/L Unknown COMPLETE BLOOD COUNT 5116735 Lymphocyte Abs 1.10 10e9/L Unknown COMPLETE BLOOD COUNT 0758393 Monocyte Abs 0.80 10e9/L 11/23 Unknown COMPLETE BLOOD COUNT 6160357 Eosinophil Abs 0.10 10e9/L Unknown COMPLETE BLOOD COUNT 4702070 RDW-SD 45.2 fL 7 Unknown COMPLETE BLOOD COUNT 5210929 Basophil Abs 0.04 10e9/L 11/23 Unknown IRON 16909 Iron 69 ug/dL 03/09/2016 Unknown VITAMIN B 12 77804 VITAMIN B12 311 pg/mL 03/09/2016 Unkn own MEAN GLUC 6391136 Mean Glucose 260 mg/dL 03/07/2016 Unknow n GLYCOSYLATED HEMOGLOBIN TEST 28677 Hgb A1c 86188-0 10.7 % 0 03/07/2016 Unknown COMPREHENSIVE METABOLIC 92199 AST 14 U/L 2015 Unknown COMPREHENSIVE METABOLIC 38595 ALT 21 U/L 2015 Unknown COMPREHENSIVE METABOLIC 32782 BUN 27 mg/dL 2015 Unknown COMPREHENSIVE METABOLIC 66060 ALBUMIN 4.5 g/dL 2015 Unknown COMPREHENSIVE METABOLIC 40226 CHLORIDE 101 mmol/L 03/06 Unknown COMPREHENSIVE METABOLIC 65082 Bili Total 0.4 mg/dL 03/06 Unknown COMPREHENSIVE METABOLIC 82580 ALK PHOS 49 U/L 2015 Unknown COMPREHENSIVE METABOLIC 98472 SODIUM 136 mmol/L 03/06 Unknown COMPREHENSIVE METABOLIC 78054 CREATININE 1.16 mg/dL 02/22 Unknown COMPREHENSIVE METABOLIC 35329 CALCIUM 9.9 mg/dL 2015 Unknown COMPREHENSIVE METABOLIC 11151 POTASSIUM 4.5 mmol/L 03/06 Unknown COMPREHENSIVE METABOLIC 59677 Total Protein 6.7 g/dL Unknown COMPREHENSIVE METABOLIC 66013 Glucose 245 mg/dL 2015 Unknown COMPREHENSIVE METABOLIC 50244 Bicarbonate 24 mmol/L 02/22 Unknown COMPREHENSIVE METABOLIC 97248 AGAP 11 mmol/L 2015 Unknown THYROID STIMULATING HORMONE 60260 TSH 0.775 uIU/mL 03/06/2016 Unknown TESTOSTERONE TOTAL 54209 Testos Total 96 ng/dL 03/06/20 16 Unknown LIPID GROUP 33326 Cholesterol 146 mg/dL 03/06/2016 Unkno wn LIPID GROUP 34344 Triglyceride 249 mg/dL 03/06/2016 Unkn own LIPID GROUP 16070 HDL CHOLESTEROL 46 mg/dL 03/06/2016 U nknown LIPID GROUP 16833 Chol/HDL Ratio 3.17 ratio 03/06/2016 U nknown LIPID GROUP 07022 NON-HDL Chol 100 mg/dL 03/06/2016 Unkn own LIPID GROUP 21454 LDL Cholesterol 50 mg/dL 03/06/2016 U nknown COMPLETE BLOOD COUNT 8342796 WBC 11.2 10e9/L 016 Unknown COMPLETE BLOOD COUNT 6349147 RBC 3.94 10e12/L 2015 Unknown COMPLETE BLOOD COUNT 4288269 HEMOGLOBIN 11.4 g/dL 03/06/20 16 Unknown COMPLETE BLOOD COUNT 8131912 HEMATOCRIT 33.7 % 03/06/20 16 Unknown COMPLETE BLOOD COUNT 8708834 MCV 85.5 fL 6 Unknown COMPLETE BLOOD COUNT 5071712 MCH 28.9 pg 6 Unknown COMPLETE BLOOD COUNT 8867124 MCHC 33.8 g/dL 6 Unknown COMPLETE BLOOD COUNT 9682616 PLATELET COUNT 204 10e9/L Unknown COMPLETE BLOOD COUNT 3047772 Mean Plt Volume 10.1 fL Unknown COMPLETE BLOOD COUNT 8898046 Neut Auto 85.9 % 6 Unknown COMPLETE BLOOD COUNT 0573696 Lymph Auto 6.8 % 03/06/20 16 Unknown COMPLETE BLOOD COUNT 2042211 [place] Auto 7.0 % 6 Unknown COMPLETE BLOOD COUNT 0126271 RDW 13.7 % 6 Unknown COMPLETE BLOOD COUNT 8406469 Eos Auto 0.1 % 6 Unknown COMPLETE BLOOD COUNT 6609531 Baso Auto 0.2 % 6 Unknown COMPLETE BLOOD COUNT 4893860 Neutrophil Abs 9.62 10e9/L Unknown COMPLETE BLOOD COUNT 1694030 Lymphoctye Abs 0.76 10e9/L Unknown COMPLETE BLOOD COUNT 8841663 Monocyte Abs 0.78 10e9/L 02/22 Unknown COMPLETE BLOOD COUNT 0938816 Eosinophil Abs 0.01 10e9/L Unknown COMPLETE BLOOD COUNT 8199586 RDW-SD 41.9 fL 6 Unknown COMPLETE BLOOD COUNT 8410253 Basophil Abs 0.02 10e9/L 02/22 Unknown FREE T4 56088 T4 Free 0.89 ng/dL 03/06/2016 Unknown GFR CALC 9015536 GFR Non Afr Amr >60 mL/min 03/06/2016 Un known GFR CALC 1009654 GFR Afr Amr >60 mL/min 03/06/2016 Unknow n PSA EQUIMOLAR JONATAN 11290 PSA Total 0.78 ng/mL 6 Unknown FREE T4 68613 FREE T4 0.90 NG/DL 07/01/2015 Unknown LIPID GROUP 47942 HDL TEST 44 MG/DL 07/01/2015 Unknown LIPID GROUP 65297 TRIG 303 MG/DL 07/01/2015 Unknown LIPID GROUP 32270 TEST LDL 56 MG/DL 07/01/2015 Unknown LIPID GROUP 75735 CHOL 161 MG/DL 07/01/2015 Unknown LIPID GROUP 88288 RCHOL/HDL 3.66 RATIO 07/01/2015 Unknow n LIPID GROUP 51206 NON-HDL CH 117 MG/DL 07/01/2015 Unknow n THYROID STIMULATING HORMONE 57970 TSH 1.783 uIU/ML 07/01/2015 Unknown COMPLETE BLOOD COUNT 4044365 WBC 6.6 10e9/L 07/01/20 15 Unknown COMPLETE BLOOD COUNT 4892290 RBC 4.18 10e12/L 2014 Unknown COMPLETE BLOOD COUNT 3307615 HGB 12.2 g/dL 5 Unknown COMPLETE BLOOD COUNT 3543897 HCT DET 37.0 % 5 Unknown COMPLETE BLOOD COUNT 2973737 MCV 88.5 fL 5 Unknown COMPLETE BLOOD COUNT 1338267 MCH 29.2 pg 5 Unknown COMPLETE BLOOD COUNT 5566540 MCHC 33.0 g/dL 5 Unknown COMPLETE BLOOD COUNT 8212885 PLT 224 10e9/L 07/01/20 15 Unknown COMPLETE BLOOD COUNT 3216917 MPV 10.4 fL 5 Unknown COMPLETE BLOOD COUNT 6197193 SUSIE % 72.6 % 5 Unknown COMPLETE BLOOD COUNT 1807219 LY % 14.1 % 5 Unknown COMPLETE BLOOD COUNT 6925503 MON % 10.2 % 5 Unknown COMPLETE BLOOD COUNT 9920407 EOS % 2.6 % 5 Unknown COMPLETE BLOOD COUNT 6879973 BASO % 0.5 % 5 Unknown COMPLETE BLOOD COUNT 8690909 RDW 14.1 % 5 Unknown COMPLETE BLOOD COUNT 1522448 ABS SUSIE 4.79 10e9/L 015 Unknown COMPLETE BLOOD COUNT 4226077 ABS LYMPH 0.93 10e9/L 015 Unknown COMPLETE BLOOD COUNT 5018895 ABS MONO 0.67 10e9/L 015 Unknown COMPLETE BLOOD COUNT 3543082 ABS EOS 0.17 10e9/L 015 Unknown COMPLETE BLOOD COUNT 2673109 ABS BASO 0.03 10e9/L 015 Unknown COMPLETE BLOOD COUNT 1547769 RDW-SD 43.9 fL 5 Unknown PSA EQUIMOLAR JONATAN 91954 PSA EQ 0.73 NG/ML 5 Unknown COMPREHENSIVE METABOLIC 18863 AST 24 U/L 2014 Unknown COMPREHENSIVE METABOLIC 35383 ALT 26 IU/L 2014 Unknown COMPREHENSIVE METABOLIC 63636 BUN 26 MG/DL 2014 Unknown COMPREHENSIVE METABOLIC 94261 ALBUMIN 4.6 GM/DL 2014 Unknown COMPREHENSIVE METABOLIC 15237 CHLORIDE 102 MMOL/L 06/01 Unknown COMPREHENSIVE METABOLIC 21004 BILI TOT 0.5 MG/DL 2014 Unknown COMPREHENSIVE METABOLIC 89382 ALK PHOS 56 U/L 2014 Unknown COMPREHENSIVE METABOLIC 16554 SODIUM 136 MMOL/L 06/01 Unknown COMPREHENSIVE METABOLIC 38034 CREATININE 1.16 MG/DL 04/2015 Unknown COMPREHENSIVE METABOLIC 17314 CALCIUM 9.8 MG/DL 2014 Unknown COMPREHENSIVE METABOLIC 00252 POTASSIUM 4.6 MMOL/L 06/01 Unknown COMPREHENSIVE METABOLIC 62711 PROT TOT 7.4 GM/DL 2014 Unknown COMPREHENSIVE METABOLIC 90758 Glucose 223 MG/DL 2014 Unknown COMPREHENSIVE METABOLIC 93411 BICARB 27 MMOL/L 2014 Unknown COMPREHENSIVE METABOLIC 94854 ANION GAP 7 MEQ/L 2014 Unknown GFR CALC 2485788 GFR AA >60 ML/MIN 06/01/2015 Unknown GFR CALC 4321413 GFR NON-AA >60 ML/MIN 06/01/2015 Unknown GLYCOSYLATED HEMOGLOBIN TEST 50091 A1C HPLC 71147-4 8.9 % 0 06/01/2015 Unknown GFR CALC 3771758 GFR AA >60 ML/MIN 02/25/2015 Unknown GFR CALC 0140518 GFR NON-AA >60 ML/MIN 02/25/2015 Unknown COMPREHENSIVE METABOLIC 29326 AST 24 U/L 2014 Unknown COMPREHENSIVE METABOLIC 42940 ALT 25 IU/L 2014 Unknown COMPREHENSIVE METABOLIC 69498 BUN 14 MG/DL 2014 Unknown COMPREHENSIVE METABOLIC 49284 ALBUMIN 4.5 GM/DL 2014 Unknown COMPREHENSIVE METABOLIC 73969 CHLORIDE 99 MMOL/L 2014 Unknown COMPREHENSIVE METABOLIC 94732 BILI TOT 0.5 MG/DL 2014 Unknown COMPREHENSIVE METABOLIC 54510 ALK PHOS 48 U/L 2014 Unknown COMPREHENSIVE METABOLIC 27995 SODIUM 136 MMOL/L 02/25 Unknown COMPREHENSIVE METABOLIC 45764 CREATININE 0.97 MG/DL 12/2014 Unknown COMPREHENSIVE METABOLIC 11072 CALCIUM 9.9 MG/DL 2014 Unknown COMPREHENSIVE METABOLIC 73187 POTASSIUM 4.4 MMOL/L 02/25 Unknown COMPREHENSIVE METABOLIC 95201 PROT TOT 7.1 GM/DL 2014 Unknown COMPREHENSIVE METABOLIC 56400 Glucose 171 MG/DL 2014 Unknown COMPREHENSIVE METABOLIC 04455 BICARB 25 MMOL/L 2014 Unknown COMPREHENSIVE METABOLIC 18726 ANION GAP 12 MEQ/L 2014 Unknown PROTEIN/CREAT URINE WITH RATIO 40823|21171 PROT R U 19 MG/D L 08/27/2014 Unknown PROTEIN/CREAT URINE WITH RATIO 37473|93345 CREAT R U 111 MG/ DL 08/27/2014 Unknown PROTEIN/CREAT URINE WITH RATIO 29224|47252 XRATIO P/C 171 MG /G 08/27/2014 Unknown MICROALBUMIN URINE RANDOM 28217 MICRL MG/L 34.7 MG/L 12/2013 Unknown MICROALBUMIN URINE RANDOM 85111 XM.ALB/CRE 32.7 MG/GCR 1 10/28/2013 Unknown MICROALBUMIN URINE RANDOM 71036 CREAT MG/D 106 MG/DL 12/2013 Unknown MICROALBUMIN URINE RANDOM 78191 CRE/100 1.06 G/L 12/2013 Unknown COMPLETE BLOOD COUNT [id number] WBC 7.1 10e9/L 08/05/20 14 Unknown COMPLETE BLOOD COUNT [id number] RBC 4.35 10e12/L 2013 Unknown COMPLETE BLOOD COUNT 3521755 HGB 12.9 g/dL 4 Unknown COMPLETE BLOOD COUNT 2243255 HCT DET 39.4 % 4 Unknown COMPLETE BLOOD COUNT 7637450 MCV 90.6 fL 4 Unknown COMPLETE BLOOD COUNT [id number] MCH 29.7 pg 4 Unknown COMPLETE BLOOD COUNT [id number] MCHC 32.7 g/dL 4 Unknown COMPLETE BLOOD COUNT [id number] PLT 240 10e9/L 08/05/20 14 Unknown COMPLETE BLOOD COUNT [id number] MPV 10.3 fL 4 Unknown COMPLETE BLOOD COUNT [id number] SUSIE % 70.0 % 4 Unknown COMPLETE BLOOD COUNT [id number] LY % 16.4 % 4 Unknown COMPLETE BLOOD COUNT [id number] MON % 9.2 % 4 Unknown COMPLETE BLOOD COUNT [id number] EOS % 3.8 % 4 Unknown COMPLETE BLOOD COUNT [id number] BASO % 0.6 % 4 Unknown COMPLETE BLOOD COUNT [id number] RDW 13.4 % 4 Unknown COMPLETE BLOOD COUNT [id number] ABS SUSIE 4.97 10e9/L 014 Unknown COMPLETE BLOOD COUNT [id number] ABS LYMPH 1.16 10e9/L 014 Unknown COMPLETE BLOOD COUNT [id number] ABS MONO 0.65 10e9/L 014 Unknown COMPLETE BLOOD COUNT [id number] ABS EOS 0.27 10e9/L 014 Unknown COMPLETE BLOOD COUNT [id number] ABS BASO 0.04 10e9/L 014 Unknown COMPLETE BLOOD COUNT [id number] RDW-SD 43.3 fL 4 Unknown FREE T4 95660 FREE T4 1.02 NG/DL 08/05/2014 Unknown GFR CALC 5958511 GFR AA >60 ML/MIN 08/05/2014 Unknown GFR CALC 4576672 GFR NON-AA >60 ML/MIN 08/05/2014 Unknown GLYCOSYLATED HEMOGLOBIN TEST 55048 A1C HPLC 31766-7 7.7 % 1 10/05/2013 Unknown COMPREHENSIVE METABOLIC 77298 AST 19 U/L 2013 Unknown COMPREHENSIVE METABOLIC 59572 ALT 21 IU/L 2013 Unknown COMPREHENSIVE METABOLIC 25703 BUN 25 MG/DL 2013 Unknown COMPREHENSIVE METABOLIC 23795 ALBUMIN 4.6 GM/DL 2013 Unknown COMPREHENSIVE METABOLIC 93214 CHLORIDE 103 MMOL/L 08/05 Unknown COMPREHENSIVE METABOLIC 61662 BILI TOT 0.4 MG/DL 2013 Unknown COMPREHENSIVE METABOLIC 46499 ALK PHOS 45 U/L 2013 Unknown COMPREHENSIVE METABOLIC 30572 SODIUM 138 MMOL/L 08/05 Unknown COMPREHENSIVE METABOLIC 06211 CREATININE 1.01 MG/DL 07/25 Unknown COMPREHENSIVE METABOLIC 50741 CALCIUM 9.8 MG/DL 2013 Unknown COMPREHENSIVE METABOLIC 52409 POTASSIUM 4.7 MMOL/L 08/05 Unknown COMPREHENSIVE METABOLIC 94311 PROT TOT 7.0 GM/DL 2013 Unknown COMPREHENSIVE METABOLIC 35034 Glucose 145 MG/DL 2013 Unknown COMPREHENSIVE METABOLIC 18902 BICARB 27 MMOL/L 2013 Unknown COMPREHENSIVE METABOLIC 05084 ANION GAP 8 MEQ/L 2013 Unknown THYROID STIMULATING HORMONE 15017 TSH 1.922 uIU/ML 08/05/2014 Unknown LIPID GROUP 48145 HDL TEST 47 MG/DL 08/05/2014 Unknown LIPID GROUP 81560 TRIG 224 MG/DL 08/05/2014 Unknown LIPID GROUP 99370 TEST LDL 125 MG/DL 08/05/2014 Unknown LIPID GROUP 23150 CHOL 217 MG/DL 08/05/2014 Unknown LIPID GROUP 79838 RCHOL/HDL 4.62 RATIO 08/05/2014 Unknow n LIPID GROUP 43782 NON-HDL CH 170 MG/DL 08/05/2014 Unknow n MYCOPLASMA ANTIBODY, IFA [id number] MYCO G IFA 1:256 03/24 Unknown MYCOPLASMA ANTIBODY, IFA [id number] MYCO M IFA <1:10 03/24 Unknown MYCOPLASMA ANTIBODY, IFA [id number] MYCO INTER SEE BELO 03/24 Unknown COMPLETE BLOOD COUNT [id number] WBC 8.3 10e9/L 04/09/20 13 Unknown COMPLETE BLOOD COUNT [id number] RBC 4.61 10e12/L 2012 Unknown COMPLETE BLOOD COUNT [id number] HGB 13.9 g/dL 3 Unknown COMPLETE BLOOD COUNT [id number] HCT DET 41.2 % 3 Unknown COMPLETE BLOOD COUNT 9676266 MCV 89.4 fL 3 Unknown COMPLETE BLOOD COUNT [id number] MCH 30.2 pg 3 Unknown COMPLETE BLOOD COUNT 5048328 MCHC 33.7 g/dL 3 Unknown COMPLETE BLOOD COUNT 6337756 PLT 249 10e9/L 04/09/20 13 Unknown COMPLETE BLOOD COUNT [id number] MPV 9.8 fL 3 Unknown COMPLETE BLOOD COUNT [id number] SUSIE % 65.9 % 3 Unknown COMPLETE BLOOD COUNT [id number] LY % 19.8 % 3 Unknown COMPLETE BLOOD COUNT [id number] MON % 10.8 % 3 Unknown COMPLETE BLOOD COUNT 6455888 EOS % 3.0 % 3 Unknown COMPLETE BLOOD COUNT [id number] BASO % 0.5 % 3 Unknown COMPLETE BLOOD COUNT 1841674 RDW 14.0 % 3 Unknown COMPLETE BLOOD COUNT [id number] ABS SUSIE 5.47 10e9/L 013 Unknown COMPLETE BLOOD COUNT [id number] ABS LYMPH 1.64 10e9/L 013 Unknown COMPLETE BLOOD COUNT [id number] ABS MONO 0.90 10e9/L 013 Unknown COMPLETE BLOOD COUNT [id number] ABS EOS 0.25 10e9/L 013 Unknown COMPLETE BLOOD COUNT [id number] ABS BASO 0.04 10e9/L 013 Unknown COMPLETE BLOOD COUNT [id number] RDW-SD 45.0 fL 3 Unknown URIC ACID 34940 URIC ACID 5.3 MG/DL 02/12/2013 Unknown FREE T4 70292 FREE T4 1.09 NG/DL 02/11/2013 Unknown COMPLETE BLOOD COUNT [id number] WBC 6.3 10e9/L 02/12/20 13 Unknown COMPLETE BLOOD COUNT [id number] RBC 4.29 10e12/L 2012 Unknown COMPLETE BLOOD COUNT [id number] HGB 13.1 g/dL 3 Unknown COMPLETE BLOOD COUNT 7579180 HCT DET 39.7 % 3 Unknown COMPLETE BLOOD COUNT 1490301 MCV 92.5 fL 3 Unknown COMPLETE BLOOD COUNT 0655206 MCH 30.5 pg 3 Unknown COMPLETE BLOOD COUNT 2827230 MCHC 33.0 g/dL 3 Unknown COMPLETE BLOOD COUNT 7295639 PLT 247 10e9/L 02/12/20 13 Unknown COMPLETE BLOOD COUNT 7478557 MPV 10.0 fL 3 Unknown COMPLETE BLOOD COUNT [id number] SUSIE % 73.4 % 3 Unknown COMPLETE BLOOD COUNT 1442629 LY % 13.5 % 3 Unknown COMPLETE BLOOD COUNT [id number] MON % 9.4 % 3 Unknown COMPLETE BLOOD COUNT [id number] EOS % 2.9 % 3 Unknown COMPLETE BLOOD COUNT [id number] BASO % 0.8 % 3 Unknown COMPLETE BLOOD COUNT 8807832 RDW 13.8 % 3 Unknown COMPLETE BLOOD COUNT [id number] ABS SUSIE 4.62 10e9/L 013 Unknown COMPLETE BLOOD COUNT [id number] ABS LYMPH 0.85 10e9/L 013 Unknown COMPLETE BLOOD COUNT [id number] ABS MONO 0.59 10e9/L 013 Unknown COMPLETE BLOOD COUNT [id number] ABS EOS 0.18 10e9/L 013 Unknown COMPLETE BLOOD COUNT [id number] ABS BASO 0.05 10e9/L 013 Unknown COMPLETE BLOOD COUNT [id number] RDW-SD 45.7 fL 3 Unknown HEMOGLOBIN A1C (GLYCOSYLATED) 5168597 A1C HPLC 78361-2 7.5 % 02/11/2013 Unknown THYROID STIMULATING HORMONE 94217 TSH 1.466 uIU/ML 02/11/2013 Unknown VITAMIN B 12 FOLIC ACID 88954|93129 VIT B 12 625 PG/ML 01/23 Unknown VITAMIN B 12 FOLIC ACID 99604|00333 FOLIC ACID 15.6 NG/ML Unknown COMPREHENSIVE METABOLIC 68634 AST 18 U/L 2012 Unknown COMPREHENSIVE METABOLIC 45173 ALT 21 IU/L 2012 Unknown COMPREHENSIVE METABOLIC 55675 BUN 25 MG/DL 2012 Unknown COMPREHENSIVE METABOLIC 63490 ALBUMIN 4.6 GM/DL 2012 Unknown COMPREHENSIVE METABOLIC 18431 CHLORIDE 103 MMOL/L 02/11 Unknown COMPREHENSIVE METABOLIC 65968 BILI TOT 0.3 MG/DL 2012 Unknown COMPREHENSIVE METABOLIC 35207 ALK PHOS 53 U/L 2012 Unknown COMPREHENSIVE METABOLIC 72941 SODIUM 136 MMOL/L 02/11 Unknown COMPREHENSIVE METABOLIC 23583 CREATININE 1.16 MG/DL 01/23 Unknown COMPREHENSIVE METABOLIC 44521 CALCIUM 10.0 MG/DL 02/11 Unknown COMPREHENSIVE METABOLIC 63428 POTASSIUM 4.9 MMOL/L 02/11 Unknown COMPREHENSIVE METABOLIC 48344 PROT TOT 7.0 GM/DL 2012 Unknown COMPREHENSIVE METABOLIC 11519 Glucose 192 MG/DL 2012 Unknown COMPREHENSIVE METABOLIC 36610 BICARB 26 MMOL/L 2012 Unknown COMPREHENSIVE METABOLIC 08333 ANION GAP 7 MEQ/L 2012 Unknown GFR CALC 2780998 GFR AA >60 ML/MIN 02/11/2013 Unknown GFR CALC 8311294 GFR NON-AA >60 ML/MIN 02/11/2013 Unknown C-REACTIVE PROTEIN (CRP) QUANT 49275 CRP 2.7 MG/DL 02/11/2013 Unknown GFR CALC 8349415 GFR AA >60 ML/MIN 09/19/2012 Unknown GFR CALC 2675373 GFR NON-AA >60 ML/MIN 09/19/2012 Unknown HEMOGLOBIN A1C (GLYCOSYLATED) 8007979 A1C HPLC 26323-3 7.2 % 09/19/2012 Unknown COMPREHENSIVE METABOLIC 51528 AST 13 U/L 2011 Unknown COMPREHENSIVE METABOLIC 04975 ALT 17 IU/L 2011 Unknown COMPREHENSIVE METABOLIC 06075 BUN 25 MG/DL 2011 Unknown COMPREHENSIVE METABOLIC 15521 ALBUMIN 4.5 GM/DL 2011 Unknown COMPREHENSIVE METABOLIC 73861 CHLORIDE 104 MMOL/L 09/19 Unknown COMPREHENSIVE METABOLIC 31214 BILI TOT 0.3 MG/DL 2011 Unknown COMPREHENSIVE METABOLIC 40405 ALK PHOS 43 U/L 2011 Unknown COMPREHENSIVE METABOLIC 55786 SODIUM 139 MMOL/L 09/19 Unknown COMPREHENSIVE METABOLIC 65050 CREATININE 1.10 MG/DL 08/25 Unknown COMPREHENSIVE METABOLIC 22015 CALCIUM 9.8 MG/DL 2011 Unknown COMPREHENSIVE METABOLIC 68708 POTASSIUM 4.8 MMOL/L 09/19 Unknown COMPREHENSIVE METABOLIC 68824 PROT TOT 6.5 GM/DL 2011 Unknown COMPREHENSIVE METABOLIC 92228 Glucose 148 MG/DL 2011 Unknown COMPREHENSIVE METABOLIC 25089 BICARB 25 MMOL/L 2011 Unknown COMPREHENSIVE METABOLIC 03259 ANION GAP 10 MEQ/L 2011 Unknown LIPID GROUP 18321 HDL TEST 44 MG/DL 09/19/2012 Unknown LIPID GROUP 56826 TRIG 318 MG/DL 09/19/2012 Unknown LIPID GROUP 70178 TEST LDL 100 MG/DL 09/19/2012 Unknown LIPID GROUP 72592 CHOL 208 MG/DL 09/19/2012 Unknown LIPID GROUP 78899 RCHOL/HDL 4.73 RATIO 09/19/2012 Unknow n FREE T4 46705 FREE T4 0.87 NG/DL 05/06/2012 Unknown GLYCOSYLATED HEMOGLOBIN TEST 88170 A1C [facility] 32548-4 6.4 % 0 05/06/2012 Unknown LIPID GROUP 55133 HDL TEST 44 MG/DL 05/06/2012 Unknown LIPID GROUP 69637 TRIG 177 MG/DL 05/06/2012 Unknown LIPID GROUP 88875 TEST LDL 113 MG/DL 05/06/2012 Unknown LIPID GROUP 01944 CHOL 192 MG/DL 05/06/2012 Unknown LIPID GROUP 90627 RCHOL/HDL 4.36 RATIO 05/06/2012 Unknow n THYROID STIMULATING HORMONE 43612 TSH 1.151 uIU/ML 05/06/2012 Unknown COMPLETE BLOOD COUNT 21557 WBC 7.8 10e9/L 05/06/20 12 Unknown COMPLETE BLOOD COUNT 97039 RBC 4.31 10e12/L 2011 Unknown COMPLETE BLOOD COUNT 82551 HGB 12.8 g/dL 2 Unknown COMPLETE BLOOD COUNT 60795 HCT DET 39.1 % 2 Unknown COMPLETE BLOOD COUNT 52323 MCV 90.7 fL 2 Unknown COMPLETE BLOOD COUNT 24498 MCH 29.7 pg 2 Unknown COMPLETE BLOOD COUNT 77933 MCHC 32.7 g/dL 2 Unknown COMPLETE BLOOD COUNT 19076 PLT 207 10e9/L 05/06/20 12 Unknown COMPLETE BLOOD COUNT 16246 MPV 10.2 fL 2 Unknown COMPLETE BLOOD COUNT 08751 SUSIE % 74.2 % 2 Unknown COMPLETE BLOOD COUNT 68117 LY % 12.8 % 2 Unknown COMPLETE BLOOD COUNT 32788 MON % 11.0 % 2 Unknown COMPLETE BLOOD COUNT 02365 EOS % 1.7 % 2 Unknown COMPLETE BLOOD COUNT 41557 BASO % 0.3 % 2 Unknown COMPLETE BLOOD COUNT 39490 RDW 13.7 % 2 Unknown COMPLETE BLOOD COUNT 41343 ABS SUSIE 5.79 10e9/L 012 Unknown COMPLETE BLOOD COUNT 58081 ABS LYMPH 1.00 10e9/L 012 Unknown COMPLETE BLOOD COUNT 49101 ABS MONO 0.86 10e9/L 012 Unknown COMPLETE BLOOD COUNT 68165 ABS EOS 0.13 10e9/L 012 Unknown COMPLETE BLOOD COUNT 67491 ABS BASO 0.02 10e9/L 012 Unknown COMPLETE BLOOD COUNT 67822 RDW-SD 44.4 fL 2 Unknown COMPREHENSIVE METABOLIC 99428 AST 13 U/L 2011 Unknown COMPREHENSIVE METABOLIC 47137 ALT 14 IU/L 2011 Unknown COMPREHENSIVE METABOLIC 19055 BUN 17 MG/DL 2011 Unknown COMPREHENSIVE METABOLIC 76357 ALBUMIN 4.5 GM/DL 2011 Unknown COMPREHENSIVE METABOLIC 66126 CHLORIDE 101 MMOL/L 05/06 Unknown COMPREHENSIVE METABOLIC 85555 BILI TOT 0.5 MG/DL 2011 Unknown COMPREHENSIVE METABOLIC 73164 ALK PHOS 42 U/L 2011 Unknown COMPREHENSIVE METABOLIC 76815 SODIUM 141 MMOL/L 05/06 Unknown COMPREHENSIVE METABOLIC 44389 CREATININE 1.02 MG/DL 04/24 Unknown COMPREHENSIVE METABOLIC 27157 CALCIUM 9.7 MG/DL 2011 Unknown COMPREHENSIVE METABOLIC 25253 POTASSIUM 4.6 MMOL/L 05/06 Unknown COMPREHENSIVE METABOLIC 52717 PROT TOT 6.5 GM/DL 2011 Unknown COMPREHENSIVE METABOLIC 66197 Glucose 139 MG/DL 2011 Unknown COMPREHENSIVE METABOLIC 89943 BICARB 29 MMOL/L 2011 Unknown COMPREHENSIVE METABOLIC 44377 ANION GAP 11 MEQ/L 2011 Unknown GFR CALC 9756058 GFR AA >60 ML/MIN 05/06/2012 Unknown GFR CALC 7129756 GFR NON-AA 54.0L ML/MIN 05/06/2012 Unkno wn GLYCOSYLATED HEMOGLOBIN TEST 64704 A1C HPLC 88133-7 6.6 % 1 09/30/2010 Unknown FREE T4 96776 FREE T4 1.00 NG/DL 07/26/2011 Unknown LIPID GROUP 17690 HDL TEST 40 MG/DL 07/26/2011 Unknown LIPID GROUP 26219 TRIG 136 MG/DL 07/26/2011 Unknown LIPID GROUP 77378 TEST LDL 126 MG/DL 07/26/2011 Unknown LIPID GROUP 17076 CHOL 193 MG/DL 07/26/2011 Unknown LIPID GROUP 12220 RCHOL/HDL 4.83 RATIO 07/26/2011 Unknow n COMPREHENSIVE METABOLIC 79991 AST 15 U/L 2010 Unknown COMPREHENSIVE METABOLIC 57166 ALT 13 IU/L 2010 Unknown COMPREHENSIVE METABOLIC 58581 BUN 17 MG/DL 2010 Unknown COMPREHENSIVE METABOLIC 73794 ALBUMIN 4.4 GM/DL 2010 Unknown COMPREHENSIVE METABOLIC 02211 CHLORIDE 102 MMOL/L 07/26 Unknown COMPREHENSIVE METABOLIC 23529 BILI TOT 0.5 MG/DL 2010 Unknown COMPREHENSIVE METABOLIC 03762 ALK PHOS 54 U/L 2010 Unknown COMPREHENSIVE METABOLIC 59540 SODIUM 138 MMOL/L 07/26 Unknown COMPREHENSIVE METABOLIC 06655 CREATININE 0.95 MG/DL 10/2010 Unknown COMPREHENSIVE METABOLIC 37869 CALCIUM 9.3 MG/DL 2010 Unknown COMPREHENSIVE METABOLIC 77910 POTASSIUM 4.3 MMOL/L 07/26 Unknown COMPREHENSIVE METABOLIC 32749 PROT TOT 6.7 GM/DL 2010 Unknown COMPREHENSIVE METABOLIC 94228 Glucose 116 MG/DL 2010 Unknown COMPREHENSIVE METABOLIC 88596 BICARB 28 MMOL/L 2010 Unknown COMPREHENSIVE METABOLIC 03263 ANION GAP 8 MEQ/L 2010 Unknown PSA EQUIMOLAR JONATAN 94920 PSA EQ 1.01 NG/ML 1 Unknown COMPLETE BLOOD COUNT 36855 WBC 6.4 10e9/L 07/26/20 11 Unknown COMPLETE BLOOD COUNT 80756 RBC 4.43 10e12/L 2010 Unknown COMPLETE BLOOD COUNT 68283 HGB 13.2 g/dL 1 Unknown COMPLETE BLOOD COUNT 59953 HCT DET 39.3 % 1 Unknown COMPLETE BLOOD COUNT 34390 MCV 88.7 fL 1 Unknown COMPLETE BLOOD COUNT 49094 MCH 29.8 pg 1 Unknown COMPLETE BLOOD COUNT 67778 MCHC 33.6 g/dL 1 Unknown COMPLETE BLOOD COUNT 36586 PLT 226 10e9/L 07/26/20 11 Unknown COMPLETE BLOOD COUNT 65809 MPV 9.9 fL 1 Unknown COMPLETE BLOOD COUNT 29033 SUSIE % 65.4 % 1 Unknown COMPLETE BLOOD COUNT 19658 LY % 19.7 % 1 Unknown COMPLETE BLOOD COUNT 21116 MON % 10.8 % 1 Unknown COMPLETE BLOOD COUNT 60879 EOS % 3.6 % 1 Unknown COMPLETE BLOOD COUNT 40579 BASO % 0.5 % 1 Unknown COMPLETE BLOOD COUNT 25089 RDW 13.2 % 1 Unknown COMPLETE BLOOD COUNT 55926 ABS SUSIE 4.19 10e9/L 011 Unknown COMPLETE BLOOD COUNT 05806 ABS LYMPH 1.26 10e9/L 011 Unknown COMPLETE BLOOD COUNT 20018 ABS MONO 0.69 10e9/L 011 Unknown COMPLETE BLOOD COUNT 43613 ABS EOS 0.23 10e9/L 011 Unknown COMPLETE BLOOD COUNT 47020 ABS BASO 0.03 10e9/L 011 Unknown COMPLETE BLOOD COUNT 70559 RDW-SD 41.7 fL 1 Unknown THYROID STIMULATING HORMONE 51284 TSH 1.345 uIU/ML 07/26/2011 Unknown GFR CALC 4433500 GFR AA >60 ML/MIN 07/26/2011 Unknown GFR CALC 7802467 GFR NON-AA >60 ML/MIN 07/26/2011 Unknown BRAIN NATRIURETIC PEPTIDE(BNP) 42478 BRAIN PEP 23 pg/mL 01/19/2011 Unknown CANCEL 7948842 CANCEL FOOTNOTE 01/18/2011 Unknown TESTOSTERONE TOTAL 40963 TESTOS TO 138 NG/DL 12/19/2010 Unknown COMPLETE BLOOD COUNT 84182 WBC 8.4 10e9/L 12/08/19 11 Unknown COMPLETE BLOOD COUNT 62934 RBC 4.40 10e12/L 2010 Unknown COMPLETE BLOOD COUNT 28181 HGB 13.3 g/dL 1 Unknown COMPLETE BLOOD COUNT 24859 HCT DET 39.8 % 1 Unknown COMPLETE BLOOD COUNT 40378 MCV 90.5 fL 1 Unknown COMPLETE BLOOD COUNT 67318 MCH 30.2 pg 1 Unknown COMPLETE BLOOD COUNT 91546 MCHC 33.4 g/dL 1 Unknown COMPLETE BLOOD COUNT 37429 PLT 201 10e9/L 12/08/19 11 Unknown COMPLETE BLOOD COUNT 49896 MPV 10.6 fL 1 Unknown COMPLETE BLOOD COUNT 33400 SUSIE % 72.5 % 1 Unknown COMPLETE BLOOD COUNT 37952 LY % 14.8 % 1 Unknown COMPLETE BLOOD COUNT 83693 MON % 10.6 % 1 Unknown COMPLETE BLOOD COUNT 37372 EOS % 1.7 % 1 Unknown COMPLETE BLOOD COUNT 75574 BASO % 0.4 % 1 Unknown COMPLETE BLOOD COUNT 52416 RDW 13.7 % 1 Unknown COMPLETE BLOOD COUNT 03812 ABS SUSIE 6.09 10e9/L 011 Unknown COMPLETE BLOOD COUNT 15204 ABS LYMPH 1.24 10e9/L 011 Unknown COMPLETE BLOOD COUNT 26272 ABS MONO 0.89 10e9/L 011 Unknown COMPLETE BLOOD COUNT 32741 ABS EOS 0.14 10e9/L 011 Unknown COMPLETE BLOOD COUNT 86599 ABS BASO 0.03 10e9/L 011 Unknown COMPLETE BLOOD COUNT 16975 RDW-SD 44.0 fL 1 Unknown LIPID GROUP 21645 HDL TEST 40 MG/DL 12/07/2010 Unknown LIPID GROUP 41715 TRIG 383 MG/DL 12/07/2010 Unknown LIPID GROUP 59178 TEST LDL 82 MG/DL 12/07/2010 Unknown LIPID GROUP 32509 CHOL 199 MG/DL 12/07/2010 Unknown LIPID GROUP 64900 RCHOL/HDL 4.98 RATIO 12/07/2010 Unknow n GFR CALC 3865794 GFR AA >60 ML/MIN 12/07/2010 Unknown GFR CALC 4932094 GFR NON-AA >60 ML/MIN 12/07/2010 Unknown COMPREHENSIVE METABOLIC 38878 AST 29 U/L 2010 Unknown COMPREHENSIVE METABOLIC 62423 ALT 39 IU/L 2010 Unknown COMPREHENSIVE METABOLIC 39238 BUN 17 MG/DL 2010 Unknown COMPREHENSIVE METABOLIC 25575 ALBUMIN 4.9 GM/DL 2010 Unknown COMPREHENSIVE METABOLIC 57466 CHLORIDE 100 MMOL/L 12/07 Unknown COMPREHENSIVE METABOLIC 60509 BILI TOT 0.3 MG/DL 2010 Unknown COMPREHENSIVE METABOLIC 99261 ALK PHOS 53 U/L 2010 Unknown COMPREHENSIVE METABOLIC 63190 SODIUM 137 MMOL/L 12/07 Unknown COMPREHENSIVE METABOLIC 86600 CREATININE 0.98 MG/DL 11/22 Unknown COMPREHENSIVE METABOLIC 19842 CALCIUM 9.5 MG/DL 2010 Unknown COMPREHENSIVE METABOLIC 27905 POTASSIUM 4.3 MMOL/L 12/07 Unknown COMPREHENSIVE METABOLIC 64169 PROT TOT 6.6 GM/DL 2010 Unknown COMPREHENSIVE METABOLIC 43737 Glucose 176 MG/DL 2010 Unknown COMPREHENSIVE METABOLIC 70128 BICARB 28 MMOL/L 2010 Unknown COMPREHENSIVE METABOLIC 71810 ANION GAP 9 MEQ/L 2010 Unknown PSA EQUIMOLAR JONATAN 89529 PSA EQ 0.65 NG/ML 1 Unknown HEMOGLOBIN A1C (GLYCOSYLATED) 50766 A1C HPLC 06797-0 6.9 % 12/07/2010 Unknown Procedures Procedure Codes Date THER/PROPH/DIAG INJ SC/IM CPT-4: 96279 12/25/2019 METHYLPREDNISOLONE INJECTION CPT-4: J2930 12/25/2019 FLU VACC PRSV FREE INC ANTIG 65 AND OLDER CPT-4: 65338 08/07/2019 FLU VACC PRSV FREE INC ANTIG 65 AND OLDER CPT-4: 67662 08/07/2019 ADMIN INFLUENZA VIRUS VAC CPT-4: G0008 08/07/2019 THER/PROPH/DIAG INJ SC/IM CPT-4: 32192 07/14/2019 METHYLPREDNISOLONE INJECTION CPT-4: J2930 07/14/2019 ROUTINE VENIPUNCTURE CPT-4: 36480 06/17/2019 ASSAY THYROID STIM HORMONE CPT-4: 30976 06/17/2019 COMPREHEN METABOLIC PANEL CPT-4: 80635 06/17/2019 COMPLETE CBC W/AUTO DIFF WBC CPT-4: 31256 06/17/2019 ASSAY OF IRON CPT-4: 54671 06/17/2019 VITAMIN B-12 CPT-4: 74112 06/17/2019 RBC SED RATE AUTOMATED CPT-4: 90944 06/17/2019 THER/PROPH/DIAG INJ SC/IM CPT-4: 95156 06/10/2019 THER/PROPH/DIAG INJ SC/IM CPT-4: 83206 06/02/2019 THER/PROPH/DIAG INJ SC/IM CPT-4: 29136 05/27/2019 THER/PROPH/DIAG INJ SC/IM CPT-4: 48030 05/12/2019 ROUTINE VENIPUNCTURE CPT-4: 10451 05/08/2019 COMPREHEN METABOLIC PANEL CPT-4: 96636 05/08/2019 COMPLETE CBC W/AUTO DIFF WBC CPT-4: 77257 05/08/2019 A1C HPLC CPT-4: 47639 05/08/2019 VITAMIN D TOTAL (25 HYDROXY) CPT-4: 18033 05/08/2019 ASSAY OF IRON CPT-4: 80810 05/08/2019 ASSAY OF FERRITIN CPT-4: 98149 05/08/2019 VITAMIN B-12 CPT-4: 07782 05/08/2019 THER/PROPH/DIAG INJ SC/IM CPT-4: 06797 03/21/2019 METHYLPREDNISOLONE INJECTION CPT-4: J2930 03/21/2019 THER/PROPH/DIAG INJ SC/IM CPT-4: 48798 03/13/2019 METHYLPREDNISOLONE INJECTION CPT-4: J2930 03/13/2019 THER/PROPH/DIAG INJ SC/IM CPT-4: 86036 12/25/2018 METHYLPREDNISOLONE INJECTION CPT-4: J2930 12/25/2018 ROUTINE VENIPUNCTURE CPT-4: 11526 12/09/2018 ASSAY OF FREE THYROXINE CPT-4: 95203 12/09/2018 ASSAY THYROID STIM HORMONE CPT-4: 71349 12/09/2018 COMPREHEN METABOLIC PANEL CPT-4: 18094 12/09/2018 COMPLETE CBC W/AUTO DIFF WBC CPT-4: 54789 12/09/2018 LIPID PANEL CPT-4: 07846 12/09/2018 A1C HPLC CPT-4: 71479 12/09/2018 PRESCRIP TRANSMIT VIA ERX SY CPT-4: G8553 08/21/2018 PRESCRIP TRANSMIT VIA ERX SY CPT-4: G8553 08/07/2018 THER/PROPH/DIAG INJ SC/IM CPT-4: 59451 05/23/2018 METHYLPREDNISOLONE INJECTION CPT-4: J2930 05/23/2018 PRESCRIP TRANSMIT VIA ERX SY CPT-4: G8553 05/02/2018 THER/PROPH/DIAG INJ SC/IM CPT-4: 15717 04/29/2018 METHYLPREDNISOLONE INJECTION CPT-4: J2930 04/29/2018 DEXAMETHASONE SODIUM PHOS CPT-4: J1100 04/22/2018 THER/PROPH/DIAG INJ SC/IM CPT-4: 54408 04/22/2018 TRIAMCINOLONE ACET INJ NOS CPT-4: J3301 04/22/2018 PRESCRIP TRANSMIT VIA ERX SY CPT-4: G8553 04/22/2018 PRESCRIP TRANSMIT VIA ERX SY CPT-4: G8553 01/23/2018 URINALYSIS NONAUTO W/O SCOPE CPT-4: 96660 01/02/2018 URINE CULTURE/ COLONY COUNT CPT-4: 68741 01/02/2018 PRESCRIP TRANSMIT VIA ERX SY CPT-4: G8553 01/02/2018 PRESCRIP TRANSMIT VIA ERX SY CPT-4: G8553 12/28/2017 PRESCRIP TRANSMIT VIA ERX SY CPT-4: G8553 12/21/2017 CEFTRIAXONE SODIUM INJECTION CPT-4: J0696 12/17/2017 THER/PROPH/DIAG INJ SC/IM CPT-4: 99851 12/17/2017 THER/PROPH/DIAG INJ SC/IM CPT-4: 68496 12/17/2017 TRIAMCINOLONE ACET INJ NOS CPT-4: J3301 12/17/2017 PRESCRIP TRANSMIT VIA ERX SY CPT-4: G8553 12/17/2017 DRAIN/INJECT JOINT/BURSA CPT-4: 94938 12/11/2017 TRIAMCINOLONE ACET INJ NOS CPT-4: J3301 12/11/2017 DEXAMETHASONE SODIUM PHOS CPT-4: J1100 12/11/2017 DESTRUCT PREMALG LESION (Cryosurgery) CPT-4: 56303 PRESCRIP TRANSMIT VIA ERX SY CPT-4: G8553 10/17/2017 DEXAMETHASONE SODIUM PHOS CPT-4: J1100 08/02/2017 THER/PROPH/DIAG INJ SC/IM CPT-4: 52022 08/02/2017 TRIAMCINOLONE ACET INJ NOS CPT-4: J3301 08/02/2017 PRESCRIP TRANSMIT VIA ERX SY CPT-4: G8553 08/02/2017 PNEUMOCOCCAL VACC 23 OLIVIA IM CPT-4: 57450 07/24/2017 ADMIN PNEUMOCOCCAL VACCINE CPT-4: G0009 07/24/2017 ALBUTEROL NON-COMP UNIT CPT-4: J7613 07/02/2017 AIRWAY INHALATION TREATMENT CPT-4: 25386 07/02/2017 THER/PROPH/DIAG INJ SC/IM CPT-4: 32576 07/02/2017 METHYLPREDNISOLONE INJECTION CPT-4: J2930 07/02/2017 PRESCRIP TRANSMIT VIA ERX SY CPT-4: G8553 05/29/2017 ROUTINE VENIPUNCTURE CPT-4: 02919 04/17/2017 ASSAY OF IRON CPT-4: 17728 04/17/2017 VITAMIN B-12 CPT-4: 56367 04/17/2017 COMPREHEN METABOLIC PANEL CPT-4: 74145 04/17/2017 COMPLETE CBC W/AUTO DIFF WBC CPT-4: 10237 04/17/2017 ASSAY OF FERRITIN CPT-4: 97688 04/17/2017 ASSAY THYROID STIM HORMONE CPT-4: 27524 04/17/2017 A1C HPLC CPT-4: 84370 04/17/2017 DRAIN/INJECT JOINT/BURSA CPT-4: 77444 02/01/2017 TRIAMCINOLONE ACET INJ NOS CPT-4: J3301 02/01/2017 DEXAMETHASONE SODIUM PHOS CPT-4: J1100 02/01/2017 ROUTINE VENIPUNCTURE CPT-4: 12098 12/27/2016 COMPLETE CBC W/AUTO DIFF WBC CPT-4: 81408 12/27/2016 ROUTINE VENIPUNCTURE CPT-4: 35922 12/21/2016 COMPLETE CBC W/AUTO DIFF WBC CPT-4: 65019 12/21/2016 ROUTINE VENIPUNCTURE CPT-4: 50357 12/12/2016 COMPLETE CBC W/AUTO DIFF WBC CPT-4: 42226 12/12/2016 PRESCRIP TRANSMIT VIA ERX SY CPT-4: G8553 10/31/2016 PRESCRIP TRANSMIT VIA ERX SY CPT-4: G8553 10/03/2016 PRESCRIP TRANSMIT VIA ERX SY CPT-4: G8553 09/04/2016 DESTRUCT PREMALG LESION (Cryosurgery) CPT-4: 24116 DESTRUCT PREMALG LES 2-14 CPT-4: 14106 08/22/2016 PRESCRIP TRANSMIT VIA ERX SY CPT-4: G8553 08/10/2016 PRESCRIP TRANSMIT VIA ERX SY CPT-4: G8553 07/06/2016 FLU VACC PRSV FREE INC ANTIG 65 AND OLDER CPT-4: 48145 06/13/2016 PNEUMOCOCCAL VACC 13 OLIVIA IM CPT-4: 57776 06/13/2016 ADMIN INFLUENZA VIRUS VAC CPT-4: G0008 06/13/2016 ADMIN PNEUMOCOCCAL VACCINE CPT-4: G0009 06/13/2016 CERUM REMOVAL CPT-4: 90637 04/05/2016 PRESCRIP TRANSMIT VIA ERX SY CPT-4: G8553 04/03/2016 ROUTINE VENIPUNCTURE CPT-4: 60070 03/06/2016 ASSAY OF FREE THYROXINE CPT-4: 49224 03/06/2016 ASSAY THYROID STIM HORMONE CPT-4: 82580 03/06/2016 COMPREHEN METABOLIC PANEL CPT-4: 99624 03/06/2016 COMPLETE CBC W/AUTO DIFF WBC CPT-4: 34590 03/06/2016 LIPID PANEL CPT-4: 58169 03/06/2016 ASSAY OF PSA TOTAL CPT-4: 25730 03/06/2016 TESTOSTERONE TOTAL - MALE CPT-4: 61929 03/06/2016 A1C HPLC CPT-4: 69321 03/06/2016 ASSAY OF IRON CPT-4: 70506 03/06/2016 VITAMIN B-12 CPT-4: 52768 03/06/2016 INJ TENDON SHEATH/LIGAMENT CPT-4: 31522 02/17/2016 TRIAMCINOLONE ACET INJ NOS CPT-4: J3301 02/17/2016 DEXAMETHASONE SODIUM PHOS CPT-4: J1100 02/17/2016 PRESCRIP TRANSMIT VIA ERX SY CPT-4: G8553 01/31/2016 PRESCRIP TRANSMIT VIA ERX SY CPT-4: G8553 12/30/2015 PRESCRIP TRANSMIT VIA ERX SY CPT-4: G8553 12/06/2015 PRESCRIP TRANSMIT VIA ERX SY CPT-4: G8553 11/15/2015 PPPS, subseq visit CPT-4: G0439 10/05/2015 MICROALBUMIN QUANTITATIVE CPT-4: 54434 10/05/2015 PROTEIN/CREAT URINE WITH RATIO CPT-4: 86367|95893 6 ROUTINE VENIPUNCTURE CPT-4: 50152 07/01/2015 ASSAY OF FREE THYROXINE CPT-4: 44686 07/01/2015 ASSAY THYROID STIM HORMONE CPT-4: 15172 07/01/2015 COMPLETE CBC W/AUTO DIFF WBC CPT-4: 84554 07/01/2015 LIPID PANEL CPT-4: 34807 07/01/2015 ASSAY OF PSA TOTAL CPT-4: 33275 07/01/2015 AEROBIC WOUND CULTURE & STN CPT-4: 62325 06/28/2015 PRESCRIP TRANSMIT VIA ERX SY CPT-4: G8553 06/28/2015 AEROBIC WOUND CULTURE & STN CPT-4: 99146 06/03/2015 PRESCRIP TRANSMIT VIA ERX SY CPT-4: G8553 06/03/2015 ROUTINE VENIPUNCTURE CPT-4: 88905 06/01/2015 COMPREHEN METABOLIC PANEL CPT-4: 12395 06/01/2015 A1C HPLC CPT-4: 38694 06/01/2015 COMPREHEN METABOLIC PANEL CPT-4: 17667 02/25/2015 A1C HPLC CPT-4: 05827 02/25/2015 DESTRUCT PREMALG LESION (Cryosurgery) CPT-4: 29132 PROTEIN/CREAT URINE WITH RATIO CPT-4: 18778|90834 5 MICROALBUMIN QUANTITATIVE CPT-4: 91720 10/27/2014 INFLUENZA ASSAY W/OPTIC CPT-4: 01911 10/21/2014 PRESCRIP TRANSMIT VIA ERX SY CPT-4: G8553 10/06/2014 PRESCRIP TRANSMIT VIA ERX SY CPT-4: G8553 09/21/2014 PRESCRIP TRANSMIT VIA ERX SY CPT-4: G8553 09/02/2014 MICROALBUMIN QUANTITATIVE CPT-4: 87697 08/27/2014 PROTEIN/CREAT URINE WITH RATIO CPT-4: 98463|98685 4 PPPS, subseq visit CPT-4: G0439 08/10/2014 ROUTINE VENIPUNCTURE CPT-4: 54833 08/05/2014 ASSAY OF FREE THYROXINE CPT-4: 23996 08/05/2014 ASSAY THYROID STIM HORMONE CPT-4: 76100 08/05/2014 COMPREHEN METABOLIC PANEL CPT-4: 08425 08/05/2014 COMPLETE CBC W/AUTO DIFF WBC CPT-4: 48887 08/05/2014 LIPID PANEL CPT-4: 32553 08/05/2014 A1C HPLC CPT-4: 69365 08/05/2014 FLUZONE, 5ML (Medicare) CPT-4: Q2038 08/05/2014 ADMIN INFLUENZA VIRUS VAC CPT-4: G0008 08/05/2014 METHYLPREDNISOLONE 40 MG INJ CPT-4: J1030 12/16/2013 TRIAMCINOLONE ACET INJ NOS CPT-4: J3301 12/16/2013 DRAIN/INJECT JOINT/BURSA CPT-4: 24665 12/16/2013 PRESCRIP TRANSMIT VIA ERX SY CPT-4: G8553 10/09/2013 THER/PROPH/DIAG INJ SC/IM CPT-4: [address]69 09/18/2013 METHYLPREDNISOLONE 40 MG INJ CPT-4: J1030 09/18/2013 TRIAMCINOLONE ACET INJ NOS CPT-4: J3301 09/18/2013 PRESCRIP TRANSMIT VIA ERX SY CPT-4: G8553 09/18/2013 PRESCRIP TRANSMIT VIA ERX SY CPT-4: G8553 08/13/2013 ROUTINE VENIPUNCTURE CPT-4: 90023 06/25/2013 ASSAY OF FREE THYROXINE CPT-4: 89530 06/25/2013 ASSAY THYROID STIM HORMONE CPT-4: 24187 06/25/2013 COMPREHEN METABOLIC PANEL CPT-4: 43209 06/25/2013 COMPLETE CBC W/AUTO DIFF WBC CPT-4: 10965 06/25/2013 LIPID PANEL CPT-4: 35122 06/25/2013 A1C GLYCOSYLATED HEMOGLOBIN TEST CPT-4: 43906 013 ROUTINE VENIPUNCTURE CPT-4: 82301 04/09/2013 COMPLETE CBC W/AUTO DIFF WBC CPT-4: 73864 04/09/2013 MYCOPLASMA ANTIBODY, IFA CPT-4: 55888N6 04/09/2013 ROUTINE VENIPUNCTURE CPT-4: 60590 02/11/2013 ASSAY OF FREE THYROXINE CPT-4: 46725 02/11/2013 ASSAY THYROID STIM HORMONE CPT-4: 87710 02/11/2013 COMPREHEN METABOLIC PANEL CPT-4: 07954 02/11/2013 COMPLETE CBC W/AUTO DIFF WBC CPT-4: 09820 02/11/2013 VITAMIN B 12 FOLIC ACID CPT-4: 43661|96442 02/11/2013 C-REACTIVE PROTEIN CPT-4: 91455 02/11/2013 A1C GLYCOSYLATED HEMOGLOBIN TEST CPT-4: 92462 013 ASSAY OF BLOOD/URIC ACID CPT-4: 00400 02/11/2013 CEFTRIAXONE SODIUM INJECTION CPT-4: J0696 01/31/2013 THER/PROPH/DIAG INJ SC/IM CPT-4: 11071 01/31/2013 THER/PROPH/DIAG INJ SC/IM CPT-4: 26850 01/31/2013 METHYLPREDNISOLONE 40 MG INJ CPT-4: J1030 01/31/2013 TRIAMCINOLONE ACET INJ NOS CPT-4: J3301 01/31/2013 ROUTINE VENIPUNCTURE CPT-4: 18956 09/19/2012 COMPREHEN METABOLIC PANEL CPT-4: 64530 09/19/2012 LIPID PANEL CPT-4: 33218 09/19/2012 A1C GLYCOSYLATED HEMOGLOBIN TEST CPT-4: 93646 012 PNEUMOCOCCAL VACC 23 OLIVIA IM CPT-4: 31165 07/10/2012 FLUZONE, 5ML (Medicare) CPT-4: Q2038 07/10/2012 ADMIN INFLUENZA VIRUS VAC CPT-4: G0008 07/10/2012 ADMIN PNEUMOCOCCAL VACCINE CPT-4: G0009 07/10/2012 ROUTINE VENIPUNCTURE CPT-4: 45006 05/06/2012 ASSAY OF FREE THYROXINE CPT-4: 95994 05/06/2012 ASSAY THYROID STIM HORMONE CPT-4: 27437 05/06/2012 COMPREHEN METABOLIC PANEL CPT-4: 14883 05/06/2012 COMPLETE CBC W/AUTO DIFF WBC CPT-4: 56105 05/06/2012 LIPID PANEL CPT-4: 05283 05/06/2012 A1C GLYCOSYLATED HEMOGLOBIN TEST CPT-4: 97666 012 IMMUNIZATION ADMIN CPT-4: 55554 02/05/2012 FLUZONE, 5ML (Medicare) CPT-4: Q2038 08/10/2011 ADMIN INFLUENZA VIRUS VAC CPT-4: G0008 08/10/2011 ROUTINE VENIPUNCTURE CPT-4: 12958 07/26/2011 ASSAY OF FREE THYROXINE CPT-4: 23206 07/26/2011 ASSAY THYROID STIM HORMONE CPT-4: 24334 07/26/2011 COMPREHEN METABOLIC PANEL CPT-4: 20805 07/26/2011 COMPLETE CBC W/AUTO DIFF WBC CPT-4: 08513 07/26/2011 LIPID PANEL CPT-4: 25744 07/26/2011 A1C GLYCOSYLATED HEMOGLOBIN TEST CPT-4: 88305 011 ASSAY OF PSA TOTAL CPT-4: 39919 07/26/2011 ROUTINE VENIPUNCTURE CPT-4: 91059 01/19/2011 ASSAY OF NATRIURETIC PEPTIDE CPT-4: 51734 01/19/2011 THER/PROPH/DIAG INJ SC/IM CPT-4: 63734 01/19/2011 CEFTRIAXONE SODIUM INJECTION CPT-4: J0696 01/19/2011 METHYLPREDNISOLONE INJECTION CPT-4: J2930 01/19/2011 THER/PROPH/DIAG INJ SC/IM CPT-4: 90702 01/19/2011 THER/PROPH/DIAG INJ SC/IM CPT-4: 66303 01/18/2011 CEFTRIAXONE SODIUM INJECTION CPT-4: J0696 01/18/2011 METHYLPREDNISOLONE INJECTION CPT-4: J2930 01/18/2011 THER/PROPH/DIAG INJ SC/IM CPT-4: 23893 01/18/2011 THER/PROPH/DIAG INJ SC/IM CPT-4: 57971 12/21/2010 TESTOSTERONE CYPIONAT 100 MG CPT-4: J1070 12/21/2010 ROUTINE VENIPUNCTURE CPT-4: 00877 12/19/2010 TESTOSTERONE TOTAL - MALE CPT-4: 52254 12/19/2010 ROUTINE VENIPUNCTURE CPT-4: 11793 12/07/2010 COMPLETE CBC W/AUTO DIFF WBC CPT-4: 60932 12/07/2010 COMPREHEN METABOLIC PANEL CPT-4: 34615 12/07/2010 LIPID PANEL CPT-4: 16705 12/07/2010 A1C GLYCOSYLATED HEMOGLOBIN TEST CPT-4: 93243 011 ASSAY OF PSA TOTAL CPT-4: 91560 12/07/2010 ROUTINE VENIPUNCTURE CPT-4: 41759 04/05/2010 PRESCRIP TRANSMIT VIA ERX SY CPT-4: G8553 04/05/2010 ROUTINE VENIPUNCTURE CPT-4: 32701 01/13/2010 METHYLPREDNISOLONE INJECTION CPT-4: J2930 12/22/2009 THER/PROPH/DIAG INJ SC/IM CPT-4: 69032 12/22/2009 THER/PROPH/DIAG INJ SC/IM CPT-4: 79173 12/22/2009 CEFTRIAXONE SODIUM INJECTION CPT-4: J0696 12/22/2009 ROUTINE VENIPUNCTURE CPT-4: 68937 12/22/2009 COMPLETE CBC W/AUTO DIFF WBC CPT-4: 53177 12/22/2009 RBC SED RATE, AUTOMATED CPT-4: 00933 12/22/2009 RPR FE/E/EN/L/M 20.1-30.0 CM CPT-4: 79352 12/22/2009 EKG FOR INITIAL PREVENT EXAM CPT-4: G0403 12/22/2009 THER/PROPH/DIAG INJ SC/IM CPT-4: 03263 12/16/2009 KETOROLAC TROMETHAMINE INJ CPT-4: J1885 12/16/2009 Vital Signs Date Vital 02/04/2020 Blood Pressure 1: 152/70 Code: 8480-6 [...] 1: 126/68 Code: 8480-6 BMI: 30.2 Code: 49555-3 Heart Rate 1: 92 bpm Height: 6' Respiratory Rate: 22 bpm SpO2: 94% Tempera ture: 36.9 (C) / 98.5 (F) Weight: 223 lbs 08/21/2018 Blood Pressure 1: 160/70 Code: 8480-6 Heart Rate 1: 79 bpm Respiratory Rate: 20 bpm SpO2: 94% Temperature: 36.7 (C) / 98.0 (F) We ight: 226 lbs 8 oz 08/07/2018 Blood Pressure 1: 138/70 Code: 8480-6 BMI: 30.1 Code: 01047-7 Heart Rate 1: 80 bpm Height: 6' Respiratory Rate: 20 bpm SpO2: 94% Tempera ture: 36.9 (C) / 98.5 (F) Weight: 222 lbs 05/23/2018 Blood Pressure 1: 148/66 Code: 8480-6 BMI: 30.0 Code: 51444-1 Heart Rate 1: 96 bpm Height: 6' Respiratory Rate: 22 bpm SpO2: 94% Tempera ture: 37.3 (C) / 99.1 (F) Weight: 221 lbs 05/02/2018 Blood Pressure 1: 146/78 Code: 8480-6 BMI: 29.6 Code: 58317-7 Heart Rate 1: 78 bpm Height: 6' Respiratory Rate: 26 bpm SpO2: 94% Tempera ture: 35.7 (C) / 96.2 (F) Weight: 218 lbs 04/29/2018 Blood Pressure 1: 142/62 Code: 8480-6 BMI: 28.6 Code: 62256-0 Heart Rate 1: 82 bpm Height: 6' Respiratory Rate: 22 bpm SpO2: 98% Tempera ture: 36.4 (C) / 97.6 (F) Weight: 211 lbs 04/22/2018 Blood Pressure 1: 126/64 Code: 8480-6 BMI: 30.0 Code: 57338-4 Heart Rate 1: 96 bpm Height: 6' [...] 1: 144/78 Code: 8480-6 BMI: 30.7 Code: 61082-3 Heart Rate 1: 92 bpm Height: 6' Respiratory Rate: 28 bpm SpO2: 94% Tempera ture: 36.9 (C) / 98.4 (F) Weight: 226 lbs 12/28/2017 Blood Pressure 1: 136/80 Code: 8480-6 Heart Rate 1: 92 bpm Respiratory Rate: 28 bpm SpO2: 94% Temperature: 36.7 (C) / 98.1 (F) 12/21/2017 Blood Pressure 1: 146/84 Code: 8480-6 BMI: 31.1 Code: 02810-1 Heart Rate 1: 84 bpm Height: 6' [...] 1: 142/64 Code: 8480-6 BMI: 31.3 Code: 33186-1 Heart Rate 1: 98 bpm Height: 6' Respiratory Rate: 24 bpm SpO2: 94% Tempera ture: 36.4 (C) / 97.6 (F) Weight: 231 lbs 10/17/2017 Blood Pressure 1: 140/68 Code: 8480-6 BMI: 31.7 Code: 89538-0 Heart Rate 1: 88 bpm Height: 6' Respiratory Rate: 20 bpm SpO2: 94% Tempera ture: 36.8 (C) / 98.3 (F) Weight: 234 lbs 08/02/2017 Blood Pressure 1: 142/80 Code: 8480-6 BMI: 31.1 Code: 29866-1 Heart Rate 1: 86 bpm Height: 6' Respiratory Rate: 20 bpm SpO2: 90% Tempera ture: 35.9 (C) / 96.7 (F) Weight: 229 lbs 07/02/2017 Blood Pressure 1: 146/64 Code: 8480-6 BMI: 29.6 Code: 46650-7 Heart Rate 1: 96 bpm Height: 6' Respiratory Rate: 20 bpm Temperature: 36 .4 (C) / 97.6 (F) Weight: 218 lbs 05/29/2017 Blood Pressure 1: 152/68 Code: 8480-6 BMI: 31.5 Code: 30779-2 Heart Rate 1: 100 bpm Height: 6' Respiratory Rate: 20 bpm SpO2: 92% Tempera ture: 36.9 (C) / 98.4 (F) Weight: 232 lbs 02/01/2017 Blood Pressure 1: 146/64 Code: 8480-6 BMI: 30.7 Code: 01981-5 Heart Rate 1: 76 bpm Height: 6' Respiratory Rate: 20 bpm SpO2: 95% Tempera ture: 36.8 (C) / 98.2 (F) Weight: 226 lbs 01/29/2017 Blood Pressure 1: 146/78 Code: 8480-6 Heart Rate 1: 84 bpm Respiratory Rate: 20 bpm SpO2: 96% Temperature: 36.1 (C) / 97.0 (F) We ight: 226 lbs 12/21/2016 Blood Pressure 1: 126/60 Code: 8480-6 BMI: 30.8 Code: 55362-4 Heart Rate 1: 88 bpm Height: 6' Respiratory Rate: 22 bpm SpO2: 94% Tempera ture: 36.7 (C) / 98.0 (F) Weight: 227 lbs 12/14/2016 Blood Pressure 1: 126/70 Code: 8480-6 BMI: 29.8 Code: 97245-8 Heart Rate 1: 92 bpm Height: 6' Respiratory Rate: 22 bpm SpO2: 93% Tempera ture: 36.8 (C) / 98.2 (F) Weight: 220 lbs 11/14/2016 Blood Pressure 1: 128/62 Code: 8480-6 Heart Rate 1: 100 bpm Respiratory Rate: 20 bpm SpO2: 96% Temperature: 36.6 (C) / 97.8 (F) We ight: 220 lbs 10/31/2016 Blood Pressure 1: 142/60 Code: 8480-6 BMI: 30.1 Code: 63835-2 Heart Rate 1: 112 bpm Height: 6' Respiratory Rate: 24 bpm SpO2: 93% Tempera ture: 37.1 (C) / 98.7 (F) Weight: 222 lbs 10/03/2016 Blood Pressure 1: 136/78 Code: 8480-6 Heart Rate 1: 106 bpm Respiratory Rate: 24 bpm SpO2: 93% Temperature: 36.6 (C) / 97.8 (F) We ight: 221 lbs 09/04/2016 Blood Pressure 1: 112/44 Code: 8480-6 BMI: 30.1 Code: 57910-7 Heart Rate 1: 90 bpm Height: 6' Respiratory Rate: 20 bpm SpO2: 93% Tempera ture: 36.6 (C) / 97.9 (F) Weight: 222 lbs 08/22/2016 Blood Pressure 1: 142/68 Code: 8480-6 BMI: 30.4 Code: 47448-1 Heart Rate 1: 100 bpm Height: 6' Respiratory Rate: 24 bpm SpO2: 93% Tempera ture: 36.7 (C) / 98.1 (F) Weight: 224 lbs 08/10/2016 Blood Pressure 1: 134/60 Code: 8480-6 BMI: 30.2 Code: 57384-4 Heart Rate 1: 76 bpm Height: 6' [...] 1: 122/72 Code: 8480-6 BMI: 30.7 Code: 25338-9 Heart Rate 1: 96 bpm Height: 6' Respiratory Rate: 22 bpm SpO2: 96% Tempera ture: 35.9 (C) / 96.7 (F) Weight: 226 lbs 04/03/2016 Blood Pressure 1: 146/64 Code: 8480-6 BMI: 30.8 Code: 37581-8 Heart Rate 1: 76 bpm Height: 6' Respiratory Rate: 20 bpm Temperature: 36 .8 (C) / 98.2 (F) Weight: 227 lbs 03/02/2016 Blood Pressure 1: 148/60 Code: 8480-6 BMI: 31.1 Code: 49889-0 Heart Rate 1: 80 bpm Height: 6' Respiratory Rate: 22 bpm SpO2: 94% Tempera ture: 36.6 (C) / 97.8 (F) Weight: 229 lbs 02/17/2016 Blood Pressure 1: 132/60 Code: 8480-6 BMI: 31.3 Code: 80724-0 Heart Rate 1: 80 bpm Height: 6' Respiratory Rate: 20 bpm Temperature: 36 .9 (C) / 98.4 (F) Weight: 231 lbs 02/14/2016 Blood Pressure 1: 126/70 Code: 8480-6 BMI: 31.3 Code: 97726-2 Heart Rate 1: 80 bpm Height: 6' Respiratory Rate: 24 bpm SpO2: 95% Tempera ture: 36.9 (C) / 98.5 (F) Weight: 231 lbs 01/31/2016 Blood Pressure 1: 136/60 Code: 8480-6 Heart Rate 1: 76 bpm Respiratory Rate: 22 bpm Temperature: 37.0 (C) / 98.6 (F) Weight: 230 lbs 12/30/2015 Blood Pressure 1: 128/58 Code: 8480-6 BMI: 31.2 Code: 87568-8 Heart Rate 1: 80 bpm Height: 6' Respiratory Rate: 20 bpm Temperature: 36 .8 (C) / 98.2 (F) Weight: 230 lbs 12/16/2015 Blood Pressure 1: 122/60 Code: 8480-6 BMI: 32.0 Code: 60526-5 Heart Rate 1: 84 bpm Height: 6' Respiratory Rate: 24 bpm Temperature: 37 .1 (C) / 98.7 (F) Weight: 236 lbs 12/06/2015 Blood Pressure 1: 162/74 Code: 8480-6 BMI: 32.5 Code: 74639-4 Heart Rate 1: 90 bpm Height: 6' Respiratory Rate: 20 bpm SpO2: 96% Tempera ture: 36.4 (C) / 97.6 (F) Weight: 240 lbs 11/15/2015 Blood Pressure 1: 166/80 Code: 8480-6 BMI: 32.4 Code: 23669-2 Heart Rate 1: 92 bpm Height: 6' Respiratory Rate: 28 bpm Temperature: 36 .5 (C) / 97.7 (F) Weight: 239 lbs 10/05/2015 Blood Pressure 1: 146/76 Code: 8480-6 BMI: 32.4 Code: 54894-1 Heart Rate 1: 88 bpm Height: 6' Respiratory Rate: 28 bpm Temperature: 37 .1 (C) / 98.7 (F) Weight: 239 lbs 07/22/2015 Blood Pressure 1: 144/68 Code: 8480-6 BMI: 31.9 Code: 84265-3 Heart Rate 1: 88 bpm Height: 6' [...] 1: 142/64 Code: 8480-6 BMI: 32.1 Code: 71168-9 Heart Rate 1: 80 bpm Height: 6' Respiratory Rate: 18 bpm Temperature: 36 .4 (C) / 97.6 (F) Weight: 237 lbs 06/07/2015 Blood Pressure 1: 164/58 Code: 8480-6 BMI: 32.1 Code: 18238-3 Heart Rate 1: 88 bpm Height: 6' Respiratory Rate: 20 bpm Temperature: 36 .6 (C) / 97.9 (F) Weight: 237 lbs 06/03/2015 Blood Pressure 1: 152/64 Code: 8480-6 BMI: 32.1 Code: 46272-3 Heart Rate 1: 96 bpm Height: 6' Respiratory Rate: 20 bpm Temperature: 37 .4 (C) / 99.3 (F) Weight: 237 lbs 06/01/2015 Blood Pressure 1: 136/70 Code: 8480-6 BMI: 31.7 Code: 16833-0 Heart Rate 1: 72 bpm Height: 6' Respiratory Rate: 22 bpm SpO2: 94% Tempera ture: 36.6 (C) / 97.9 (F) Weight: 234 lbs 02/25/2015 Blood Pressure 1: 146/80 Code: 8480-6 BMI: 32.4 Code: 61495-1 Heart Rate 1: 84 bpm Height: 6' Respiratory Rate: 28 bpm Temperature: 36 .7 (C) / 98.0 (F) Weight: 239 lbs 10/27/2014 Blood Pressure 1: 168/70 Code: 8480-6 BMI: 32.0 Code: 09478-9 Heart Rate 1: 80 bpm Height: 6' Respiratory Rate: 30 bpm SpO2: 98% Tempera ture: 36.4 (C) / 97.6 (F) Weight: 236 lbs 10/21/2014 Blood Pressure 1: 152/58 Code: 8480-6 BMI: 32.1 Code: 00919-2 Heart Rate 1: 78 bpm Height: 6' Respiratory Rate: 20 bpm Temperature: 37 .8 (C) / 100.1 (F) Weight: 237 lbs 10/06/2014 Blood Pressure 1: 132/64 Code: 8480-6 BMI: 32.5 Code: 28724-9 Heart Rate 1: 88 bpm Height: 6' Respiratory Rate: 32 bpm SpO2: 94% Tempera ture: 36.8 (C) / 98.2 (F) Weight: 240 lbs 09/21/2014 Blood Pressure 1: 134/68 Code: 8480-6 BMI: 32.4 Code: 38086-4 Heart Rate 1: 96 bpm Height: 6' Respiratory Rate: 30 bpm Temperature: 36 .7 (C) / 98.1 (F) Weight: 239 lbs 09/08/2014 Blood Pressure 1: 128/74 Code: 8480-6 BMI: 32.4 Code: 30451-6 Heart Rate 1: 82 bpm Height: 6' Respiratory Rate: 28 bpm SpO2: 93% Tempera ture: 36.6 (C) / 97.8 (F) Weight: 239 lbs 09/02/2014 Blood Pressure 1: 164/78 Code: 8480-6 Heart Rate 1: 86 bpm Respiratory Rate: 22 bpm SpO2: 96% Temperature: 36.1 (C) / 97.0 (F) We ight: 239 lbs 08/10/2014 Blood Pressure 1: 152/60 Code: 8480-6 BMI: 32.8 Code: 31866-4 Heart Rate 1: 80 bpm Height: 6' [...] 1: 146/80 Code: 8480-6 BMI: 33.9 Code: 68823-8 Heart Rate 1: 80 bpm Height: 6' [...] 1: 148/78 Code: 8480-6 BMI: 30.5 Code: 90972-3 Heart Rate 1: 84 bpm Height: 6' Respiratory Rate: 28 bpm SpO2: 97% Tempera ture: 36.4 (C) / 97.5 (F) Weight: 225 lbs 08/06/2013 Blood Pressure 1: 158/70 Code: 8480-6 Heart Rate 1: 110 bpm Respiratory Rate: 22 bpm SpO2: 88% Temperature: 39.7 (C) / 103.4 (F) W eight: 07/16/2013 Blood Pressure 1: 148/82 Code: 8480-6 BMI: 31.9 Code: 45646-9 Heart Rate 1: 80 bpm Height: 6' Respiratory Rate: 20 bpm Temperature: 36 .6 (C) / 97.9 (F) Weight: 235 lbs 04/09/2013 Blood Pressure 1: 142/78 Code: 8480-6 BMI: 31.5 Code: 08652-1 Heart Rate 1: 88 bpm Height: 6' Respiratory Rate: 32 bpm SpO2: 95% Tempera ture: 37.0 (C) / 98.6 (F) Weight: 232 lbs 02/11/2013 Blood Pressure 1: 146/70 Code: 8480-6 Heart Rate 1: 88 bpm Respiratory Rate: 20 bpm Temperature: 36.8 (C) / 98.3 (F) Weight: 230 lbs 01/31/2013 Blood Pressure 1: 128/70 Code: 8480-6 BMI: 31.6 Code: 50099-3 Heart Rate 1: 84 bpm Height: 6' Respiratory Rate: 24 bpm SpO2: 92% Tempera ture: 36.7 (C) / 98.0 (F) Weight: 233 lbs 01/20/2013 Blood Pressure 1: 148/64 Code: 8480-6 BMI: 31.6 Code: 62535-7 Heart Rate 1: 68 bpm Height: 6' Temperature: 36.1 (C) / 97.0 (F) Weight: 233 lbs 12/19/2012 Blood Pressure 1: 128/68 Code: 8480-6 BMI: 32.0 Code: 11648-4 Heart Rate 1: 64 bpm Height: 6' Temperature: 36.7 (C) / 98.0 (F) Weight: 236 lbs 10/21/2012 Blood Pressure 1: 142/64 Code: 8480-6 BMI: 30.9 Code: 93533-3 Heart Rate 1: 74 bpm Height: 6' Temperature: 36.2 (C) / 97.1 (F) Weight: 228 lbs 09/18/2012 Blood Pressure 1: 126/60 Code: 8480-6 BMI: 31.3 Code: 32862-3 Heart Rate 1: 88 bpm Height: 6' Respiratory Rate: 20 bpm Temperature: 36 .5 (C) / 97.7 (F) Weight: 231 lbs 08/28/2012 Blood Pressure 1: 132/68 Code: 8480-6 BMI: 31.5 Code: 90074-9 Heart Rate 1: 92 bpm Height: 6' Respiratory Rate: 30 bpm SpO2: 94% Tempera ture: 37.1 (C) / 98.7 (F) Weight: 232 lbs 07/10/2012 Blood Pressure 1: 118/70 Code: 8480-6 BMI: 30.5 Code: 41923-4 Heart Rate 1: 72 bpm Height: 6' Respiratory Rate: 24 bpm SpO2: 96% Tempera ture: 36.7 (C) / 98.0 (F) Weight: 225 lbs 05/09/2012 Blood Pressure 1: 124/68 Code: 8480-6 BMI: 29.8 Code: 05252-0 Heart Rate 1: 72 bpm Height: 6' Respiratory Rate: 20 bpm Temperature: 36 .8 (C) / 98.2 (F) Weight: 220 lbs 10/02/2011 Blood Pressure 1: 140/82 Code: 8480-6 BMI: 30.7 Code: 79258-7 Heart Rate 1: 68 bpm Height: 6' Temperature: 36.7 (C) / 98.0 (F) Weight: 226 lbs 08/07/2011 Blood Pressure 1: 122/68 Code: 8480-6 BMI: 30.5 Code: 57976-8 Heart Rate 1: 72 bpm Height: 6' [...] 1: 140/78 Code: 8480-6 BMI: 31.9 Code: 65953-5 Heart Rate 1: 84 bpm Height: 6' Temperature: 36.6 (C) / 97.8 (F) Weight: 235 lbs 12/22/2009 Blood Pressure 1: 140/74 Code: 8480-6 BMI: 31.9 Code: 71358-5 Heart Rate 1: 94 bpm Height: 6' SpO2: 92% Temperature: 35.7 (C) / 96.2 (F) Weight: 235 lbs 12/13/2009 Blood Pressure 1: 146/80 Code: 8480-6 BMI: 33.0 Code: 85169-9 Heart Rate 1: 86 bpm Height: 6' Temperature: 36.5 (C) / 97.7 (F) Weight: 243 lbs Functional Status No Functional Status data Reason For Visit Reason For Visit Effective Dates Notes dyspnea 02/04/2020 follow up 12/25/2019 ER visit knee pain 12/22/2019 fatigue 11/12/2019 follow up 09/11/2019 cough 08/07/2019 cough 07/14/2019 follow up 07/01/2019 vomiting 06/24/2019 follow up 06/17/2019 right knee pain injection(s) 06/10/2019 b12 shot injection(s) 06/02/2019 injection(s) 05/27/2019 injection(s) 05/12/2019 B12 shot follow up 05/08/2019 follow up 04/07/2019 [facility] dizziness 03/24/2019 dizziness 03/21/2019 sore throat 03/13/2019 Patient finished zit hromax last night and has one dose of prednisone left follow up 03/10/2019 ER [facility]---patient cu rrently taking zithromax, prednisone and breathing treatments every two hours spasms/spasticity 02/26/2019 follow up 02/13/2019 follow up 01/14/2019 [facility] follow up 12/25/2018 cough 12/09/2018 [...] up 07/02/2017 Patient recently ariel campos on [facility], but never picked up. He was also given prednisone/Zpack on 06/16/17 from walk in clinic. Patient is also in consult with Dr Benjamin. patient dc'd from hospital last week and reports that he is still taking the antibiotic that was prescribed to him (augmentin) and finished out the prednisone. 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 follow up 05/29/2017 Discuss Low Back [...] nightly. Patient has just been discharged from [place] with Pneumonia. Currently on Levaquin once daily. [...] follow up 03/13/2016 Patient here for [facility] on medication education for insulin [...] follow up 10/06/2014 follow up 09/21/2014 Hospital fw follow up 09/08/2014 Hospital [facility] cough 09/02/2014 well man exam (65+ [...] 12/13/2009 Encounters Encounter Performer Location Codes Date ([id number]) OFFICE/OUTPATIENT VISIT EST Diagnosis: Chronic obstructive pulmonary disease, unspecified[ICD10: J44.9] Lita BARAKAT [facility] CPT-4: 88796 02/04/2020 ([id number]) OFFICE/OUTPATIENT VISIT EST Diagnosis: Chronic obstructive pulmonary disease with (acute) exacerbation[ICD10: J44.1] Lita BARAKAT [facility] CPT- 4: 18398 12/25/2019 ([id number]) OFFICE/OUTPATIENT VISIT EST Diagnosis: Noncompliance with diabetes treatment[ICD10: Z91.19] Diagnosis: Insomnia[ICD10: G47.00] Diagnosis: Pain in right knee[ICD10: M25.561] Lita Barakat [facility] CPT-4: 47348 12/22/2019 ([id number]) OFFICE/OUTPATIENT VISIT EST Diagnosis: Chronic respiratory failure with hypercapnia[ICD10: J96.12] Diagnosis: Chronic airway obstruction, not elsewhere classified[ICD10: J44.9] Diagnosis: Basal cell carcinoma, face[ICD10: C44.310] [facility] 62172 11/12/2019 ([id number]) OFFICE/OUTPATIENT VISIT EST Diagnosis: Chronic obstructive pulmonary disease, unspecified[ICD10: J44.9] Diagnosis: Right thyroid nodule[ICD10: E04.1] [facility]: 00509 09/11/2019 ([id number]) OFFICE/OUTPATIENT VISIT EST Diagnosis: Chronic bronchitis[ICD10: J42] 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] Diagnosis: FLU VACCINE[ICD10: Z23] [facility]: 44283 08/07/2019 ([id number]) OFFICE/OUTPATIENT VISIT EST Diagnosis: Chronic obstructive pulmonary disease with (acute) exacerbation[ICD10: J44.1] [facility]- [facility]: 99112 07/14/2019 ([id number]) OFFICE/OUTPATIENT VISIT EST Diagnosis: Primary insomnia[ICD10: F51.01] Diagnosis: Dyspepsia and other specified disorders of function of stomach[ICD10: K31.89] [facility]: 88327 07/01/2019 ([id number]) OFFICE/OUTPATIENT VISIT EST Diagnosis: Epigastric pain[ICD10: R10.13] Diagnosis: Nausea[ICD10: R11.0] Diagnosis: Weight loss[ICD10: R63.4] Lita [facility] CPT-4: 48475 06/24/2019 ([id number]) OFFICE/OUTPATIENT VISIT EST Diagnosis: Chronic obstructive pulmonary disease, unspecified[ICD10: J44.9] Diagnosis: Chronic insomnia[ICD10: F51.04] Diagnosis: Anemia[ICD10: D64.9] Diagnosis: Diplopia[ICD10: H53.2] Diagnosis: [place][ICD10: F30.9] Lita BARAKAT DO [facility] CPT-4: 19429 06/17/2019 ([id number]) NURSE/OUTPATIENT VISIT EST Diagnosis: Vitamin B12 deficiency anemia, unspecified[ICD10: D51.9] Lita BARAKAT DO [facility] CPT-4: 52122 06/10/2019 ([id number]) NURSE/OUTPATIENT VISIT EST Diagnosis: Vitamin B12 deficiency anemia, unspecified[ICD10: D51.9] Lita BARAKAT DO [facility] CPT-4: 16993 06/02/2019 ([id number]) NURSE/OUTPATIENT VISIT EST Diagnosis: Vitamin B12 deficiency anemia, unspecified[ICD10: D51.9] Lita BARAKAT DO [facility] CPT-4: 41365 05/27/2019 ([id number]) NURSE/OUTPATIENT VISIT EST Diagnosis: Vitamin B12 deficiency anemia, unspecified[ICD10: D51.9] Lita BARAKAT DO [facility] CPT-4: 75915 05/12/2019 ([id number]) OFFICE/OUTPATIENT VISIT EST Diagnosis: Restless legs syndrome[ICD10: G25.81] Diagnosis: Primary insomnia[ICD10: F51.01] Diagnosis: Anemia, unspecified[ICD10: D64.9] Diagnosis: Type 2 diabetes mellitus with hyperglycemia[ICD10: E11.65] Diagnosis: Vitamin D deficiency, unspecified[ICD10: E55.9] Lita BARAKAT DO [facility] CPT-4: 16661 05/08/2019 ([id number]) OFFICE/OUTPATIENT VISIT EST Diagnosis: Pain in right knee[ICD10: M25.561] Diagnosis: Restless legs syndrome[ICD10: G25.81] Diagnosis: Insomnia, unspecified[ICD10: G47.00] Lita BARAKAT DO [facility] CPT-4: 78685 04/07/2019 ([id number]) NO CHARGE Diagnosis: Chronic obstructive pulmonary disease with (acute) exacerbation[ICD10: J44.1] Diagnosis: Dizziness and giddiness[ICD10: R42] Diagnosis: Generalized anxiety disorder[ICD10: F41.1] Autumn BARAKAT DO [facility] CPT-4: 72719 03/24/2019 ([id number]) OFFICE/OUTPATIENT VISIT EST Diagnosis: Chronic obstructive pulmonary disease with (acute) exacerbation[ICD10: J44.1] Diagnosis: Dizziness and giddiness[ICD10: R42] Autumn BARAKAT DO [facility] CPT-4: 73960 03/21/2019 ([id number]) OFFICE/OUTPATIENT VISIT EST Diagnosis: Candidal stomatitis[ICD10: B37.0] Lita BARAKAT [employer] [facility] CPT-4: 32481 03/13/2019 ([id number]) OFFICE/OUTPATIENT VISIT EST Diagnosis: Chronic obstructive pulmonary disease with acute lower respiratory infection[ICD10: J44.0] Diagnosis: Restless legs syndrome[ICD10: G25.81] Lita BARAKAT [employer] [facility] CPT-4: 26235 03/10/2019 ([id number]) OFFICE/OUTPATIENT VISIT EST Diagnosis: Restless legs syndrome[ICD10: G25.81] Lita BARAKAT [employer] [facility] CPT-4: 86006 02/26/2019 ([id number]) OFFICE/OUTPATIENT VISIT EST Diagnosis: Primary insomnia[ICD10: F51.01] Diagnosis: Chronic obstructive pulmonary disease, unspecified[ICD10: J44.9] Lita BARAKAT DO [facility] CPT-4: 53659 02/13/2019 ([id number]) OFFICE/OUTPATIENT VISIT EST Diagnosis: Chronic obstructive pulmonary disease, unspecified[ICD10: J44.9] Diagnosis: Chronic respiratory failure with hypoxia[ICD10: J96.11] Diagnosis: Chronic respiratory failure with hypercapnia[ICD10: J96.12] Lita BARAKAT DO [facility] CPT-4: 16673 01/14/2019 ([id number]) OFFICE/OUTPATIENT VISIT EST Diagnosis: Chronic respiratory failure with hypoxia[ICD10: J96.11] Diagnosis: Patient's noncompliance with other medical treatment and regimen[ICD10: Z91.19] Diagnosis: Chronic obstructive pulmonary disease with (acute) exacerbation[ICD10: J44.1] Lita CRAWFORD Ashley BARAKAT [employer] [facility] CPT- 4: 04971 12/25/2018 ([id number]) OFFICE/OUTPATIENT VISIT EST Diagnosis: Essential (primary) hypertension[ICD10: I10] Diagnosis: Type 2 diabetes mellitus with hyperglycemia[ICD10: E11.65] Diagnosis: Hypothyroidism, unspecified[ICD10: E03.9] Diagnosis: Hyperlipidemia, unspecified[ICD10: E78.5] Diagnosis: Acute recurrent maxillary sinusitis[ICD10: J01.01] Ines ALYLINE Ashley BARAKAT [employer] [facility] CPT-4: 38970 12/09/2018 ([id number]) OFFICE/OUTPATIENT VISIT EST Diagnosis: Candidal stomatitis[ICD10: B37.0] Lita Segura DonovanFerdinand YUVAL [employer] [facility] CPT-4: 91215 12/05/2018 ([id number]) OFFICE/OUTPATIENT VISIT EST Diagnosis: Acute recurrent sinusitis, unspecified[ICD10: J01.91] Diagnosis: Pain in right knee[ICD10: M25.561] Lita GONZALES Ashley BARAKAT [employer] [facility] CPT-4: 63715 10/23/2018 ([id number]) OFFICE/OUTPATIENT VISIT EST Diagnosis: Restless legs syndrome[ICD10: G25.81] Diagnosis: Basal cell carcinoma of skin of scalp and neck[ICD10: C44.41] Lita CRAWFORD DonovanFerdinand YUVAL [employer] [facility] CPT-4: 54248 08/21/2018 ([id number]) OFFICE/OUTPATIENT VISIT EST Diagnosis: Chronic obstructive pulmonary disease with acute lower respiratory infection[ICD10: J44.0] Diagnosis: Restless legs syndrome[ICD10: G25.81] Lita TRAN DonovanFerdinand YUVAL [employer] [facility] CPT-4: 40025 08/07/2018 ([id number]) OFFICE/OUTPATIENT VISIT EST Diagnosis: Chronic obstructive pulmonary disease with acute lower respiratory infection[ICD10: J44.0] Lita CRAWFORD DonovanFerdinand YUVAL [employer] [facility] CPT-4: 10183 05/23/2018 ([id number]) OFFICE/OUTPATIENT VISIT EST Diagnosis: Candidal stomatitis[ICD10: B37.0] Lita BARAKAT DO [facility] CPT-4: 61183 05/02/2018 ([id number]) OFFICE/OUTPATIENT VISIT EST Diagnosis: Candidal stomatitis[ICD10: B37.0] Diagnosis: Other retention of urine[ICD10: R33.8] Diagnosis: Chronic obstructive pulmonary disease with acute lower respiratory infection[ICD10: J44.0] Autumn BARAKAT DO [facility] CPT-4: 95854 04/29/2018 ([id number]) OFFICE/OUTPATIENT VISIT EST Diagnosis: Chronic obstructive pulmonary disease with acute lower respiratory infection[ICD10: J44.0] Lita BARAKAT DO [facility] CPT-4: 52090 04/22/2018 ([id number]) OFFICE/OUTPATIENT VISIT EST Diagnosis: Unilateral primary osteoarthritis, right knee[ICD10: M17.11] Diagnosis: Squamous cell carcinoma of skin, unspecified[ICD10: C44.92] Lita BARAKAT DO [facility] CPT-4: 04403 01/28/2018 ([id number]) OFFICE/OUTPATIENT VISIT EST Diagnosis: Pain in right knee[ICD10: M25.561] Diagnosis: 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] Lita BARAKAT DO [facility] CPT-4: 64847 01/23/2018 ([id number]) OFFICE/OUTPATIENT VISIT EST Diagnosis: Urinary tract infection, site not specified[ICD10: N39.0] Diagnosis: Chronic obstructive pulmonary disease with acute lower respiratory infection[ICD10: J44.0] Lita BARAKAT DO [facility] CPT-4: 69309 01/02/2018 ([id number]) OFFICE/OUTPATIENT VISIT EST Diagnosis: Chronic obstructive pulmonary disease with (acute) exacerbation[ICD10: J44.1] Autunm BARAKAT DO [facility] CPT- 4: 16072 12/28/2017 ([id number]) OFFICE/OUTPATIENT VISIT EST Diagnosis: Acute bronchitis, unspecified[ICD10: J20.9] Autumn BARAKAT [facility] CPT-4: 66210 12/21/2017 ([id number]) OFFICE/OUTPATIENT VISIT EST Diagnosis: Chronic obstructive pulmonary disease with acute lower respiratory infection[ICD10: J44.0] Diagnosis: Pain in right knee[ICD10: M25.561] [facility]umn [facility] CPT-[facility]: 94410 12/17/2017 ([id number]) OFFICE/OUTPATIENT VISIT EST Diagnosis: Laceration without foreign body of right hand, sequela[ICD10: S61.411S] Diagnosis: Restless legs syndrome[ICD10: G25.81] Lita Funez TADEO [facility] C[facility]: 52141 10/17/2017 OFFICE/OUTPATIENT VISIT EST Diagnosis: Chronic obstructive pulmonary disease with acute lower respiratory infection[ICD10: J44.0] Autumn [facility] CPT-[facility]: 36828 08/02/2017 ([id number]) OFFICE/OUTPATIENT VISIT EST Diagnosis: PNEUMOCOCCAL VACCINE[ICD10: Z23] Lita [facility]: 15409 07/24/2017 OFFICE/OUTPATIENT VISIT EST Diagnosis: Chronic obstructive pulmonary disease with (acute) exacerbation[ICD10: J44.1] Autumn [facility] CPT- 4: 55949 07/02/2017 OFFICE/OUTPATIENT VISIT EST Diagnosis: Low back pain[ICD10: M54.5] Ruchi Buchanan LITA S. Filiberto BRANDIN [facility] CPT-4: 75065 05/29/2017 ([id number]) OFFICE/OUTPATIENT VISIT EST Diagnosis: Essential (primary) hypertension[ICD10: I10] Diagnosis: Hypothyroidism, unspecified[ICD10: E03.9] Diagnosis: Dizziness and giddiness[ICD10: R42] Diagnosis: Other abnormality of red blood cells[ICD10: R71.8] Diagnosis: Contracture of muscle, unspecified site[ICD10: M62.40] Lita [facility] CPT-[facility]: 17551 04/17/2017 OFFICE/OUTPATIENT VISIT EST Diagnosis: Pain in left shoulder[ICD10: M25.512] Ruchi HectorJuanMoi BARAKAT DO [facility] CPT-4: 22872 01/29/2017 ([id number]) OFFICE/OUTPATIENT VISIT EST Diagnosis: Anemia, unspecified[ICD10: D64.9] Lita BARAKAT DO [facility] CPT-4: 13972 12/27/2016 ([id number]) OFFICE/OUTPATIENT VISIT EST Diagnosis: Other fatigue[ICD10: R53.83] Diagnosis: Other iron deficiency anemias[ICD10: D50.8] Lita BARAKAT DO [facility] CPT-4: 88494 12/21/2016 ([id number]) OFFICE/OUTPATIENT VISIT EST Diagnosis: Anemia, unspecified[ICD10: D64.9] Diagnosis: Other fatigue[ICD10: R53.83] Diagnosis: Restless legs syndrome[ICD10: G25.81] Lita BARAKAT DO [facility] CPT-4: 16471 12/14/2016 ([id number]) OFFICE/OUTPATIENT VISIT EST Diagnosis: Anemia, unspecified[ICD10: D64.9] Diagnosis: Other abnormality of red blood cells[ICD10: R71.8] Lita BARAKAT DO [facility] CPT-4: 65300 12/12/2016 ([id number]) OFFICE/OUTPATIENT VISIT EST Diagnosis: Pneumonia, unspecified organism[ICD10: J18.9] Diagnosis: Restless legs syndrome[ICD10: G25.81] Magda Toth TADEO BARAKAT DO [facility] CPT-4: 35338 11/14/2016 ([id number]) OFFICE/OUTPATIENT VISIT EST Diagnosis: Candidal stomatitis[ICD10: B37.0] Lita BARAKAT DO [facility] CPT-4: 75659 10/31/2016 ([id number]) OFFICE/OUTPATIENT VISIT EST Diagnosis: Acute upper respiratory infection, unspecified[ICD10: J06.9] Diagnosis: Personal history of pneumonia (recurrent)[ICD10: Z87.01] Magda Toth LITA BARAKAT DO [facility] CPT-4: 44096 10/03/2016 ([id number]) OFFICE/OUTPATIENT VISIT EST Diagnosis: Restless legs syndrome[ICD10: G25.81] Diagnosis: Insomnia, unspecified[ICD10: G47.00] Magda [facility] CPT-[facility]: 29244 09/04/2016 ([id number]) OFFICE/OUTPATIENT VISIT EST Diagnosis: Restless legs syndrome[ICD10: G25.81] Diagnosis: Primary insomnia[ICD10: F51.01] Lita [facility] CPT-[facility]: 27878 08/10/2016 OFFICE/OUTPATIENT VISIT EST Diagnosis: Toxic gastroenteritis and colitis[ICD10: K52.1] Diagnosis: Dizziness and giddiness[ICD10: R42] Diagnosis: Headache[ICD10: R51] Diagnosis: Restless legs syndrome[ICD10: G25.81] Lita Yuval [facility] CPT-[facility]: 67127 07/06/2016 ([id number]) OFFICE/OUTPATIENT VISIT EST Diagnosis: Chest pain, unspecified[ICD10: R07.9] Diagnosis: Dyspnea, unspecified[ICD10: R06.00] [facility] 23954 06/22/2016 ([id number]) OFFICE/OUTPATIENT VISIT EST 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] Diagnosis: PNEUMOCOCCAL VACCINE[ICD10: Z23] Diagnosis: FLU VACCINE[ICD10: Z23] Lita Archerjosefbrii [facility] CPT-4: 66879 06/13/2016 ([id number]) OFFICE/OUTPATIENT VISIT EST Diagnosis: Chest pain, unspecified[ICD10: R07.9] Diagnosis: Other forms of dyspnea[ICD10: R06.09] Diagnosis: Shortness of breath[ICD10: R06.02] Diagnosis: Other fatigue[ICD10: R53.83] Magda ALYLINE Ashley [facility] CPT-4: 91822 06/01/2016 ([id number]) OFFICE/OUTPATIENT VISIT EST Diagnosis: Unspecified hearing loss, left ear[ICD10: H91.92] Diagnosis: Other specified disorders of Eustachian tube, left ear[ICD10: H69.82] Magda CRAWFORD DonovanFerdinand YUVAL [employer] [facility] CPT-4: 45969 11/2015 ([id number]) OFFICE/OUTPATIENT VISIT EST Diagnosis: Impacted cerumen, bilateral[ICD10: H61.23] Diagnosis: DM W/O COMPLICATION TYPE I, 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: E10.9] Diagnosis: Generalized anxiety disorder[ICD10: F41.1] Lita Yuval ALYLINE DonovanFerdinand YUVAL [employer] [facility] CPT-4: 06608 04/03/2016 ([id number]) OFFICE/OUTPATIENT VISIT EST Diagnosis: 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] Lita Yuval ALYLINE Ashley BARAKAT [employer] [facility] CPT - 4: 70845 03/13/2016 ([id number]) OFFICE/OUTPATIENT VISIT EST Diagnosis: Type 2 diabetes mellitus with hyperglycemia[ICD10: E11.65] Diagnosis: Hyperlipidemia, unspecified[ICD10: E78.5] Diagnosis: Essential (primary) hypertension[ICD10: I10] Diagnosis: Chronic obstructive pulmonary disease, unspecified[ICD10: J44.9] Diagnosis: Testicular hypofunction[ICD10: E29.1] Diagnosis: Male erectile dysfunction, unspecified[ICD10: N52.9] Diagnosis: Anemia, unspecified[ICD10: D64.9] Lita Yuval ALYOSCAR Segura Ashley BARAKAT [employer] [facility] CPT-4: 91469 03/06/2016 ([id number]) OFFICE/OUTPATIENT VISIT EST Diagnosis: Type 2 diabetes mellitus with hyperglycemia[ICD10: E11.65] Diagnosis: Hyperlipidemia, unspecified[ICD10: E78.5] Diagnosis: Chronic obstructive pulmonary disease, unspecified[ICD10: J44.9] Diagnosis: Male erectile dysfunction, unspecified[ICD10: N52.9] Lita Funezbrii LITA DonovanFerdinand YUVAL [employer] [facility] CPT-4: 66435 03/02/2016 ([id number]) OFFICE/OUTPATIENT VISIT EST Diagnosis: Pain in right foot[ICD10: M79.671] Magda GONZALES Ashley BARAKAT [employer] [facility] CPT-4: 18646 02/14/2016 OFFICE/OUTPATIENT VISIT EST Diagnosis: Generalized anxiety disorder[ICD10: F41.1] Lita BARAKAT DO [facility] CPT-4: 49388 01/31/2016 ([id number]) OFFICE/OUTPATIENT VISIT EST Diagnosis: Generalized anxiety disorder[ICD10: F41.1] Lita BARAKAT DO [facility] CPT-4: 05001 12/30/2015 ([id number]) OFFICE/OUTPATIENT VISIT EST Diagnosis: Localized swelling, mass and lump, neck[ICD10: R22.1] Lita BARAKAT DO [facility] CPT-4: 32720 12/16/2015 OFFICE/OUTPATIENT VISIT EST Diagnosis: Localized enlarged lymph nodes[ICD10: R59.0] Diagnosis: Otalgia, left ear[ICD10: H92.02] Stephanie BARAKAT DO [facility] CPT-4: 31473 12/06/2015 OFFICE/OUTPATIENT VISIT EST Diagnosis: Localized enlarged lymph nodes[ICD10: R59.0] Diagnosis: Squamous cell carcinoma of skin, unspecified[ICD10: C44.92] Diagnosis: Actinic keratosis[ICD10: L57.0] Stephanie BARAKAT DO [facility] CPT-4: 61859 11/15/2015 OFFICE/OUTPATIENT VISIT EST Diagnosis: Cellulitis of left lower limb[ICD10: L03.116] Diagnosis: Encounter for examination and observation for other specified reasons[ICD10: Z04.8] Diagnosis: Chronic obstructive pulmonary disease, unspecified[ICD10: J44.9] Stephanie BARAKAT DO [facility] CPT-4: 72426 07/22/2015 OFFICE/OUTPATIENT VISIT EST Diagnosis: Other specified joint disorders, left knee[ICD10: M25.862] Diagnosis: Cellulitis of left lower limb[ICD10: L03.116] Diagnosis: Other fatigue[ICD10: R53.83] Diagnosis: Hyperlipidemia, unspecified[ICD10: E78.5] Stephanie BARAKAT DO [facility] CPT-4: 30565 07/01/2015 OFFICE/OUTPATIENT VISIT EST Diagnosis: Pain in left knee[ICD10: M25.562] Diagnosis: Cellulitis of left lower limb[ICD10: L03.116] Diagnosis: Other specified joint disorders, left knee[ICD10: M25.862] Stephanie BARAKAT DO [facility] CPT-4: 55920 06/28/2015 OFFICE/OUTPATIENT VISIT EST Diagnosis: PREPATELLAR BURSITIS[ICD9: 726.65] Diagnosis: Cellulitis of knee, left[ICD9: 682.6] Stephanie BARAKAT DO [facility] CPT-4: 92706 06/09/2015 ([id number]) OFFICE/OUTPATIENT VISIT EST Diagnosis: PREPATELLAR BURSITIS[ICD9: 726.65] Diagnosis: Cellulitis of knee, left[ICD9: 682.6] Lita BARAKAT [facility] CPT-4: 73261 06/07/2015 OFFICE/OUTPATIENT VISIT EST Diagnosis: Cellulitis of knee, left[ICD9: 682.6] Stephanie BARAKAT DO [facility] CPT-4: 99961 06/03/2015 ([id number]) OFFICE/OUTPATIENT VISIT EST Diagnosis: DM W/O COMPLICATION TYPE II, UNCONTROLLED[ICD9: 250.02] Diagnosis: COPD[ICD9: 496] Lita BARAKAT DO [facility] CPT- 4: 08071 06/01/2015 ([id number]) OFFICE/OUTPATIENT VISIT EST Diagnosis: COPD[ICD9: 496] Diagnosis: DYSPNEA[ICD9: 786.09] Diagnosis: DM W/O COMPLICATION TYPE II, UNCONTROLLED[ICD9: 250.02] Diagnosis: Actinic keratosis[ICD9: 702.0] Lita BARAKAT DO [facility] CPT-4: 29006 02/25/2015 ([id number]) OFFICE/OUTPATIENT VISIT EST Diagnosis: ASTHMA NOS[ICD9: 493.90] Diagnosis: COPD[ICD9: 496] Diagnosis: DM W/O COMPLICATION TYPE II, UNCONTROLLED[ICD9: 250.02] Lita BARAKAT [facility] CPT-4: 37418 10/27/2014 OFFICE/OUTPATIENT VISIT EST Diagnosis: DYSPNEA[ICD9: 786.09] Diagnosis: COPD[ICD9: 496] Lita BARAKAT DO [facility] CPT- 4: 65394 10/06/2014 ([id number]) OFFICE/OUTPATIENT VISIT EST Diagnosis: PNEUMONIA, ORGANISM[ICD9: 486] Diagnosis: COPD[ICD9: 496] Diagnosis: DYSPNEA[ICD9: 786.09] Lita BARAKAT DO [facility] CPT-4: 13510 09/21/2014 OFFICE/OUTPATIENT VISIT EST Diagnosis: PNEUMONIA, ORGANISM[ICD9: 486] Diagnosis: DYSPNEA[ICD9: 786.09] Diagnosis: COUGH[ICD9: 786.2] Stephanie BARAKAT DO [facility] CPT-4: 42017 09/08/2014 OFFICE/OUTPATIENT VISIT EST Diagnosis: COPD with exacerbation[ICD9: 491.21] Diagnosis: COUGH[ICD9: 786.2] Diagnosis: DYSPNEA[ICD9: 786.09] Stephanie BARAKAT DO [facility] CPT-4: 17600 09/02/2014 ([id number]) OFFICE/OUTPATIENT VISIT EST Diagnosis: DM W/O COMPLICATION TYPE II, UNCONTROLLED[ICD9: 250.02] Lita BARAKAT [facility] CPT-4: 26174 08/27/2014 ([id number]) OFFICE/OUTPATIENT VISIT EST Diagnosis: DM W/O COMPLICATION TYPE II, UNCONTROLLED[ICD9: 250.02] Diagnosis: HYPERLIPIDEMIA NEC/NOS[ICD9: 272.4] Diagnosis: HYPERTENSION[ICD9: 401.9] Diagnosis: COPD[ICD9: 496] Diagnosis: FLU VACCINE[ICD10: Z23] Lita PABLO [facility] CPT-4: 32079 08/05/2014 ([id number]) OFFICE/OUTPATIENT VISIT EST Diagnosis: COPD[ICD9: 496] Diagnosis: Lumbar degenerative disc disease[ICD9: 722.52] Lita BARAKAT DO [facility] CPT-4: 39868 05/05/2014 OFFICE/OUTPATIENT VISIT EST Diagnosis: DYSPNEA[ICD9: 786.09] Diagnosis: COPD[ICD9: 496] Lita BARAKAT [facility] CPT- 4: 35539 03/24/2014 ([id number]) OFFICE/OUTPATIENT VISIT EST Diagnosis: COPD[ICD9: 496] Diagnosis: DYSPNEA[ICD9: 786.09] Lita BARAKAT [facility] CPT-4: 73029 03/10/2014 OFFICE/OUTPATIENT VISIT EST Diagnosis: Subacromial bursitis[ICD9: 726.19] Diagnosis: Chronic low back pain[ICD9: 724.2] Diagnosis: Lumbar degenerative disc disease[ICD9: 722.52] Lita BARAKAT [facility] CPT-4: 00302 12/16/2013 ([id number]) OFFICE/OUTPATIENT VISIT EST Diagnosis: PHARYNGITIS, ACUTE[ICD9: 462] Diagnosis: COPD[ICD9: 496] [facility]ita [facility] CPT- 4: 19759 10/09/2013 OFFICE/OUTPATIENT VISIT EST Diagnosis: COPD[ICD9: 496] Diagnosis: Acute exacerbation of chronic obstructive pulmonary disease (COPD)[ICD9: 491.21] Ruchi Buchanan LITA [facility] CPT-[facility]: 43201 09/18/2013 ([id number]) OFFICE/OUTPATIENT VISIT EST Diagnosis: PNEUMONIA, ORGANISM[ICD9: 486] Diagnosis: DM W/O COMPLICATION TYPE II[ICD9: 250.00] Lita [facility] CPT-[facility]: 70015 08/13/2013 ([id number]) OFFICE/OUTPATIENT VISIT EST Diagnosis: DM W/O COMPLICATION TYPE II, UNCONTROLLED[ICD9: 250.02] Diagnosis: HYPERLIPIDEMIA NEC/NOS[ICD9: 272.4] Diagnosis: HYPERTENSION[ICD9: 401.9] Diagnosis: DYSPNEA[ICD9: 786.09] Diagnosis: Family history of CABG[ICD9: V17.49] Lita [facility] CPT-[facility]: 20745 07/16/2013 ([id number]) OFFICE/OUTPATIENT VISIT EST Diagnosis: DM W/O COMPLICATION TYPE II, UNCONTROLLED[ICD9: 250.02] Diagnosis: HYPERLIPIDEMIA NEC/NOS[ICD9: 272.4] Diagnosis: HYPERTENSION[ICD9: 401.9] Lita Ramirez JASMIN IRINA [facility] CPT-4: 02423 06/25/2013 OFFICE/OUTPATIENT VISIT EST Diagnosis: COUGH[ICD9: 786.2] Diagnosis: COPD[ICD9: 496] Kimberly Deejay Ramirez [facility] CPT- [facility]: 90636 04/09/2013 ([id number]) OFFICE/OUTPATIENT VISIT EST Diagnosis: Muscle spasm[ICD9: 728.85] Diagnosis: ARTHRALGIA-MULTIPLE SITES[ICD9: 719.49] Lita Ramirez [facility] CPT-[facility]: 19904 02/11/2013 OFFICE/OUTPATIENT VISIT EST Diagnosis: COPD with exacerbation[ICD9: 491.21] Diagnosis: BRONCHITIS, ACUTE[ICD9: 466.0] Ruchi Streeter [facility]: 67750 01/31/2013 OFFICE/OUTPATIENT VISIT EST Diagnosis: COUGH[ICD9: 786.2] Diagnosis: PHARYNGITIS, ACUTE[ICD9: 462] Diagnosis: SINUSITIS, ACUTE[ICD9: 461.9] Lita Ramirez [facility] CPT-[facility]: 97846 01/20/2013 OFFICE/OUTPATIENT VISIT EST Diagnosis: DIZZINESS/VERTIGO[ICD9: 780.4] Lita Streeter [facility] CPT-[facility]: 53739 12/19/2012 OFFICE/OUTPATIENT VISIT EST Diagnosis: Skin lesion of left arm[ICD9: 709.9] Diagnosis: Otitis externa[ICD9: 380.10] Diagnosis: PHARYNGITIS, ACUTE[ICD9: 462] Lita Ramirez [facility]: 63891 10/21/2012 ([id number]) OFFICE/OUTPATIENT VISIT EST Diagnosis: DM W/O COMPLICATION TYPE II, UNCONTROLLED[ICD9: 250.02] Diagnosis: HYPERLIPIDEMIA NEC/NOS[ICD9: 272.4] Diagnosis: HYPERTENSION[ICD9: 401.9] Ltia AREVALO [facility] CPT-4: 80785 09/19/2012 ([id number]) OFFICE/OUTPATIENT VISIT EST Diagnosis: DM W/O COMPLICATION TYPE II, UNCONTROLLED[ICD9: 250.02] Diagnosis: HYPERLIPIDEMIA NEC/NOS[ICD9: 272.4] Diagnosis: COPD[ICD9: 496] Lita BARAKAT [facility] CPT- 4: 79237 09/18/2012 ([id number]) OFFICE/OUTPATIENT VISIT EST Diagnosis: BRONCHITIS, ACUTE[ICD9: 466.0] Diagnosis: SINUSITIS, ACUTE[ICD9: 461.9] Lita BARAKAT [facility] CPT-4: 72632 08/28/2012 ([id number]) OFFICE/OUTPATIENT VISIT EST Diagnosis: COPD[ICD9: 496] Diagnosis: DYSPNEA[ICD9: 786.09] Diagnosis: VAC STREP PNEUMONIAE-FLU (Medicare)[ICD9: V06.6] Lita BARAKAT [facility] CPT-4: 67060 07/10/2012 ([id number]) OFFICE/OUTPATIENT VISIT EST Diagnosis: DM W/O COMPLICATION TYPE II, UNCONTROLLED[ICD9: 250.02] Diagnosis: HYPERTENSION[ICD9: 401.9] Diagnosis: HYPERLIPIDEMIA NEC/NOS[ICD9: 272.4] Diagnosis: DIZZINESS/VERTIGO[ICD9: 780.4] Lita BARAKAT [facility] CPT-4: 05836 05/09/2012 ([id number]) OFFICE/OUTPATIENT VISIT EST Diagnosis: DM W/O COMPLICATION TYPE II, UNCONTROLLED[ICD9: 250.02] Diagnosis: HYPERLIPIDEMIA NEC/NOS[ICD9: 272.4] Diagnosis: HYPERTENSION[ICD9: 401.9] Diagnosis: MALAISE AND FATIGUE[ICD9: 780.79] Lita BARAKAT [facility] CPT-4: 15247 05/06/2012 OFFICE/OUTPATIENT VISIT EST Diagnosis: COUGH[ICD9: 786.2] Diagnosis: SINUSITIS, ACUTE[ICD9: 461.9] Diagnosis: PHARYNGITIS, ACUTE[ICD9: 462] Litacarol BARAKAT [facility] CPT-4: 30766 10/02/2011 OFFICE/OUTPATIENT VISIT EST Diagnosis: DM W/O COMPLICATION TYPE II, UNCONTROLLED[ICD9: 250.02] Diagnosis: HYPERLIPIDEMIA NEC/NOS[ICD9: 272.4] Diagnosis: HYPERTENSION[ICD9: 401.9] Diagnosis: COPD[ICD9: 496] Lita CRAWFORD S. ORENDER DO [facility] CPT- 4: 34407 08/07/2011 OFFICE/OUTPATIENT VISIT EST Lita ARCHER NDER DO [facility] CPT- 4: 42709 04/03/2011 ([id number]) OFFICE/OUTPATIENT VISIT EST Lita PALACIOS S. ORENDER DO [facility] CPT-4: 09945 01/18/2011 ([id number]) OFFICE/OUTPATIENT VISIT EST Lita PALACIOS S. ORENDER DO [facility] CPT-4: 18005 12/19/2010 ([id number]) OFFICE/OUTPATIENT VISIT, EST Lita HOLMAN S. ORENDER DO [facility] CPT-4: 65563 04/05/2010 ([id number]) OFFICE/OUTPATIENT VISIT, EST Lita HOLMAN S. ORENDER DO [facility] CPT-4: 20985 01/13/2010 ([id number]) OFFICE/OUTPATIENT VISIT, EST Lita HOLMAN S. ORENDER DO [facility] CPT-4: 25594 12/23/2009 ([id number]) OFFICE/OUTPATIENT VISIT, EST Lita HOLMAN S. ORENDER DO [facility] CPT-4: 46921 12/22/2009 ([id number]) OFFICE/OUTPATIENT VISIT, EST Lita HOLMAN S. ORENDER DO [facility] CPT-4: 58097 12/13/2009 Plan of Care Planned Activity Notes [...] : J44.9 02/04/2020 Appointment: Lita Barakat WPtel: [address] [place] [address] MEDICATION REVIEW 02/04/2020 Visit Diagnosis Plan: Chronic obstructiv e pulmonary disease with (acute) exacerbation Discussion: Solumedrol 125mg IM Continue SVNs every 4hrs Prednisone for 1 week COVID-19 precautions ICD-9 : 491.21 ICD-10 : J44.1 12/25/2019 Appointment: Lita Barakat WPtel: [address] [place], [place] [phone] FOLLOW UP 12/25/2019 Patient Education: prednisone- [employer] Coupon [id number] [email or web address]/[email or web address]/resources/[email or web address] Completed 12/25/2019 Visit Diagnosis Plan: Pain in [...] : Z91.19 12/22/2019 Appointment: Lita Barakat WPtel: [address] [place], [place] [id number] TELEMEDICINE 12/22/2019 Patient Education: baclofen- [employer] Coupon [id number] [email or web address]/resources/[email or web address]/[email or web address] Completed 12/22/2019 Visit Diagnosis Plan: Chronic airway [...] : J96.12 11/12/2019 Appointment: Lita Barakat WPtel: [address] [place] [address] ACUTE ILLNESS 11/12/2019 Care Plan: Referral Order SNOMED-CT : 30 [id number] Pending 11/12/2019 Care Plan: Referral Order SNOMED-CT : 30 [id number] Pending 11/12/2019 Visit Diagnosis Plan: Chronic obstructive pulmonary di sease, unspecified Discussion: Start Pulmonary Rehab Reviewed results of CT of chest ordered by pulmonology Follow Up: 3 months ICD-9 : 496 ICD-10 : J44.9 09/11/2019 Visit Diagnosis Plan: Right thyroid nodule Discussion: Check thyroid US ICD-9 : 241.0 ICD-10 : E04.1 09/11/2019 Appointment: Lita Barakat WPtel: [address] [place], [place] [phone] US MEDICATION REVIEW 09/11/2019 Care Plan: US EXAM OF HEAD AND NECK LOIN C : 54588-3 Pending 09/11/2019 Visit Diagnosis Plan: Chronic bronchitis Discussion: A ugmentin for 10 days ICD-9 : 491.9 ICD-10 : J42 08/07/2019 Appointment: Lita Barakat WPtel: [address] [place] [address] ACUTE ILLNESS 08/07/2019 Visit Diagnosis Plan: Chronic [...] him that 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 call office later this week with worsening or no improvement ICD-9 : 491.21 ICD-10 : J44.1 07/14/2019 Appointment: Autumn Oneil [address] [facility] ACUTE ILLNESS 07/14/2019 Visit Diagnosis Plan: Primary [...] : K31.89 07/01/2019 Appointment: Lita Barakat WPtel: [phone] [id number] FOLLOW UP 07/01/2019 Care Plan: CT ABDOMEN W/O DYE LOINC : 36 103-0 Pending 07/01/2019 Care Plan: Referral Order SNOMED-CT : 30 [id number] Pending 07/01/2019 Visit Diagnosis Plan: Epigastric pain [...] : 783.21 ICD-10 : R63.4 06/24/2019 Appointment: iLta Barakat WPtel: [address] [place], [place] [id number] [place] ACUTE ILLNESS 06/24/2019 Patient Education: Seroquel- [employer] Coupon [id number] [email or web address] Completed 06/24/2019 Patient Education: ondansetron HCl- [employer] Coupon [id number] [email or web address] Completed 06/24/2019 Care Plan: US EXAM ABDOM COMPLETE LOINC : 05189-1 Pending 06/24/2019 Visit Diagnosis Plan: Diplopia Discussion: [...] : J44.9 06/17/2019 Appointment: Lita Barakat WPtel: [address] [place], [place] [id number] [place] FOLLOW UP 06/17/2019 Appointment: Lita Barakat WPtel: [address] [place], [place] [id number] [place] INJECTION 06/10/2019 Appointment: Lita Barakat WPtel: [address] [place], [place] [id number] [place] INJECTION 06/02/2019 Appointment: Lita Barakat WPtel: [address] [place], [place] [phone] [place] INJECTION 05/27/2019 Appointment: Lita Barakat WPtel: [address] [place], [place] [phone] [place] INJECTION 05/12/2019 Visit Diagnosis Plan: Vitamin [...] : D64.9 05/08/2019 Appointment: Lita Barakat WPtel: [address] [place], [place] [phone] FOLLOW UP 05/08/2019 Visit Diagnosis Plan: Pain in right knee Discussion: S top tramadol and tylenol q HS Trial of Hydrocodone 10/325mg po q HS Recheck 1month ICD-9 : 719.46 ICD-10 : M25.561 04/07/2019 Appointment: Lita Barakat WPtel: [address] [place], [place] [phone] Hospital Follow Up 04/07/2019 Visit Diagnosis Plan: [...] ICD-10 : F41.1 03/24/2019 Appointment: Autumn Oneil [address] [place], [place] [phone] ACUTE ILLNESS 03/24/2019 Patient Education: hydroxyzine HCl- [employer] Coupon [id number] Completed 03/24/2019 Patient Education: pantoprazole- [employer] Coupon [id number] Completed 03/24/2019 Visit Diagnosis Plan: Dizziness and [...] fice. patient's portable oxygen tank was empty. [id number] patient on importance of monitoring oxygen tank to be sure it does not become empty when he's out of the house. patient states he has an extra one in the car that he will use. ICD-9 : 491.21 ICD-10 : J44.1 03/21/2019 Appointment: Autumn Oneil [address] [place], [place] [address] ACUTE ILLNESS 03/21/2019 Patient Education: ipratropium-albuterol- [employer] C oupon [id number] https://www.Picatcha.ActionBase/samplemd/resources/getResource/61/f9zd74r5-n9f2-7n5b-43 Completed 03/21/2019 Visit Diagnosis Plan: Chronic obstructiv e pulmonary disease with (acute) exacerbation Discussion: Solumedrol now Use SVNs with duoneb at least q4hrs Patient is supposed to be on continuous oxygen but not wearing ICD-9 : 491.21 ICD-10 : J44.1 03/13/2019 Visit Diagnosis Plan: Candidal stomatitis Discussion: Diflucan and Nystatin susp ICD-9 : 112.0 ICD-10 : B37.0 03/13/2019 Appointment: [facility] [address] [facility] [facility] 03/13/2019 Patient Education: losartan- [employer] Coupon [id number] Completed 03/13/2019 Patient Education: nystatin- [employer] Coupon [id number] Completed 03/13/2019 Patient Education: fluconazole- [employer] Coupon [id number] Completed 03/13/2019 Visit Diagnosis Plan: Restless legs [...] : J44.0 03/10/2019 Appointment: Lita Barakat [facility]el[facility] [address] [facility] [facility] 03/10/2019 Visit Diagnosis Plan: Restless legs syndrome Discussio n: Stop requip Increase sinemet to TID Add children's chewable MV with iron BID Add magnesium oxide 400mg daily Add Lyrica 75mg po q HS Stop trazadone Recheck 3 weeks Follow Up: 3 weeks ICD-9 : 333.94 ICD-10 : G25.81 02/26/2019 Appointment: Lita Barakat WPtel: [address] [place], [place] [phone] ACUTE ILLNESS 02/26/2019 Visit Diagnosis Plan: Primary insomnia Discussion: Tri al of doxepin 10-20mg po q HS prn sleep ICD-9 : 780.52 ICD-10 : F51.01 02/13/2019 Visit Diagnosis Plan: Chronic obstructive pulmonary di sease, unspecified Discussion: Stable Discussed trip to [place]--will get oxygen setup through [facility] ICD-9 : 496 ICD-10 : J44.9 02/13/2019 Appointment: Lita Barakat WPtel: [address] [place], [place] [phone] FOLLOW UP 02/13/2019 Patient Education: doxepin- [employer] Coupon [id number] https://www.Qwbcg/samplemd/resources/getResource/61/98c1x28m-22sh-458y-4j Completed 02/13/2019 Appointment: Lita Barakat WPtel: [address] [place], [place] [phone] CANCELED 01/20/2019 Visit Diagnosis Plan: Chronic obstructive pulmonary di sease, unspecified Discussion: Stable on oxygen Given Symbicort samples Follow Up: 1 months ICD-9 : 496 ICD-10 : J44.9 01/14/2019 Appointment: Lita Barakattel: [address] [place], [place] [phone] Hospital Follow Up 01/14/2019 Visit Diagnosis Plan: [...] 491.21 ICD-10 : J44.1 12/25/2018 Appointment: Lita Barakattel: [facility] [address] Hospital Follow Up 12/25/2018 Appointment: Lita Barakat WPtel: [facility] [place] CANCELED 12/23/2018 Appointment: Ines Banerjee [address] [place] [address] CANCELED 12/20/2018 Visit Diagnosis Plan: Essential (primary) [...] ICD-10 : J01.01 12/09/2018 Appointment: Ines Banerjee [address] [place] [address] LAB 12/09/2018 Patient Education: cefdinir- [employer] Coupon [id number] https://www.Qwbcg/samplemd/resources/getResource/61/c8851c6y-08sh-8413-20 Completed 12/09/2018 Visit Diagnosis Plan: Candidal stomatitis Discussion: Diflucan for 5 days Hold atorvastatin while taking ICD-9 : 112.0 ICD-10 : B37.0 12/05/2018 Appointment: Lita Barakat WPtel: [facility] [address] ACUTE ILLNESS 12/05/2018 Patient Education: fluconazole- [employer] Coupon [id number] https://www.Qwbcg/samplemd/resources/getResource/61/3e859d03-5ac9-01g0-48 Completed 12/05/2018 Appointment: Lita Barakat WPtel: [address] [place], [place] [phone] NO SHOW 11/11/2018 Visit Plan: Saline nasal [...] : M25.561 10/23/2018 Appointment: Lita Barakat WPtel: [address] [place] [address] ACUTE ILLNESS 10/23/2018 Patient Education: prednisone- [employer] Coupon [id number] https://www.Qwbcg/Picatcha/resources/getResource/61/ov9tv055-cqak-3408-97 Completed 10/23/2018 Care Plan: A1C HPLC LOINC : 28875-1 Pending 09/10/2018 Care Plan: COMPREH[place] METAB[place] : [address]-8 Pending 09/10/2018 Care Plan: CBC Pending 09/10/2018 Visit Diagnosis Plan: Restless legs syndrome Discussio n: Increase requip to 8mg q HS Call in 1 week on if helping or not ICD-9 : 333.94 ICD-10 : G25.81 08/21/2018 Visit Diagnosis Plan: Basal cell carcinoma of skin of scalp and neck Discussion: Referral to Dr. Swanson for removal--will need to hold aspirin for 5-7 days ICD-9 : 173.41 ICD-10 : C44.41 08/21/2018 Appointment: Lita Barakat WPtel: [address] [place], [place] [phone] ACUTE ILLNESS 08/21/2018 Care Plan: Referral Order SNOMED-CT : 30 1619416 Pending 08/21/2018 Visit Diagnosis Plan: Chronic obstructiv [...] : G25.81 08/07/2018 Appointment: Lita Barakat WPtel: [address] [place], [place] [phone] [facility] FOLLOW UP 08/07/2018 Appointment: Lita Barakat WPtel: [address] [place], [place] [phone] 07/18/18 1210---see note in chart (km) CANCELED 07/18/2018 Visit Diagnosis Plan: Chronic obstructiv e pulmonary disease with acute lower respiratory infection Discussion: Solumedrol 125mg IM Change t o trelagy 1 inhalation daily Use SVNs with albuterol q4hrs To ER this weekend if worsens Monitor weight/swelling ICD-9 : 496 ICD-10 : J44.0 05/23/2018 Appointment: Lita Barakat WPtel: [address] [place], [place] [phone] ACUTE ILLNESS 05/23/2018 Patient Education: Patient Medication Summary Completed 05/23/2018 Visit Diagnosis Plan: Candidal stomatitis Discussion: Diflucan for 7 more days--hold atrovastatin while taking ICD-9 : 112.0 ICD-10 : B37.0 05/02/2018 Appointment: Lita Barakat WPtel: [address] [place], [place] [phone] FOLLOW UP 05/02/2018 Patient Education: Patient Medication [...] ICD-10 : J44.0 04/29/2018 Appointment: Autumn Oneil [address] [place], [place] [phone] ACUTE ILLNESS 04/29/2018 Patient Education: Patient Medication [...] : J44.0 04/22/2018 Appointment: Lita Barakat WPtel: [address] [id number] Hospital Follow Up 04/22/2018 Patient Education: Patient Medication Summary Completed 04/22/2018 Appointment: Lita Barakat WPtel: [address] [place] [phone] 04/09/18 1640---see message in chart from today [...] : M17.11 01/28/2018 Appointment: Lita Barakat WPtel: [address] [place] [address] ACUTE ILLNESS 01/28/2018 Patient Education: Patient Medication Summary Completed 01/28/2018 Care Plan: Referral Order SNOMED-CT : 30 6727377 Pending 01/28/2018 Care Plan: Referral Order SNOMED-CT : 30 8111161 Pending 01/28/2018 Visit Diagnosis Plan: Functional dyspepsia Discussion: Protonix Call in 1 week on how doing ICD-9 : 536.8 ICD-10 : K30 01/23/2018 Visit Diagnosis Plan: Pain in right knee Discussion: T opical voltaren gel QID ICD-9 : 719.46 ICD-10 : M25.561 01/23/2018 Appointment: Lita Barakat WPtel: [address] [place] [address] ACUTE ILLNESS 01/23/2018 Patient Education: Patient Medication [...] Appointment: Lita Barakat WPtel: [phone] [id number] ACUTE ILLNESS 01/02/2018 Patient Education: Patient Medication [...] ICD-10 : J44.1 12/28/2017 Appointment: Autumn Oneil [address] [address] [place] Consult 12/28/2017 Patient Education: Patient Medication [...] J20.9 12/21/2017 Appointment: Autumn Oneil [address] ACUTE ILLNESS 12/21/2017 Patient Education: Patient Medication Summary Completed 12/21/2017 Care Plan: X-RAY EXAM OF KNEE 1 OR 2 right [place] NC : [address]40-6 Pending 12/18/2017 Visit Diagnosis Plan: Pain in [...] ICD-10 : J44.0 12/17/2017 Appointment: Autumn Oneil [address] [place], [place] [id number] ACUTE ILLNESS 12/17/2017 Patient Education: Patient Medication Summary Completed 12/17/2017 Visit Diagnosis Plan: Unilateral primary osteoarthriti s, right knee Discussion: Right knee injection as above Warned of elevated BS after injection ICD-9 : 715.96 ICD-10 : M17.11 12/11/2017 Appointment: Lita Barakat WPtel: [address] [place], [place] [phone] OFFICE SURGERY 12/11/2017 Patient Education: Patient Medication Summary Completed 12/11/2017 Visit Diagnosis Plan: Actinic keratosis Discussion: Cr yotherapy as above If persists then will need excision by Dr. Swanson ICD-9 : 702.0 ICD-10 : L57.0 11/07/2017 Appointment: Lita Barakat WPtel: [address] [place], [place] [phone] ACUTE ILLNESS 11/07/2017 Patient Education: Patient Medication [...] : S61.411S 10/17/2017 Appointment: Lita Barakat WPtel: [address] [place] [address] ER Follow UP 10/17/2017 Patient Education: Patient Medication Summary Completed 10/17/2017 Appointment: Lita Barakat WPtel: [address] [place] [address] Consult 08/15/2017 Visit Diagnosis Plan: Chronic obstructiv [...] ICD-10 : J44.0 08/02/2017 Appointment: Autumn Oneil [address] [place] [address] ACUTE ILLNESS 08/02/2017 Patient Education: Patient Medication Summary Completed 08/02/2017 Patient Education: Patient Medication Summary Completed 07/31/2017 Care Plan: CHEST X-RAY 2VW FRONTAL&LATL LOINC : 33025-4 Pending 07/31/2017 Appointment: Lita Barakat WPtel: [address] [place] [address] INJECTION 07/24/2017 Patient Education: Patient Medication Summary [...] : J44.1 07/02/2017 Appointment: Autumn Oneil [address] ACUTE ILLNESS 07/02/2017 Patient Education: Patient Medication Summary Completed 07/02/2017 Care Plan: CHEST X-RAY 2VW FRONTAL&LATL LOINC : 70666-1 Pending 07/02/2017 Care Plan: MRI LUMBAR SPINE W/O DYE LOIN C : 22804-5 Pending 05/30/2017 Visit Plan: MRI at [facility] codone 5.325 1 po q 4-6 hours prn pain #40 NR and Cyclobenzaprine (ERx) Continue warm packs for pain RTC if no improvement 05/29/2017 Appointment: Ruchi Buchanan WPtel: [address] [place] [address] ACUTE ILLNESS 05/29/2017 Patient Education: Patient Medication Summary Completed 05/29/2017 Appointment: Lita Barakat WPtel: [address] [place] [address] [place] CANCELED 05/24/2017 Patient Education: Patient Medication Summary Completed 05/22/2017 Care Plan: X-RAY EXAM L-S SPINE 2/3 VWS LOINC : 69090-5 Pending 05/22/2017 Appointment: Lita Barakat WPtel: [address] [place] [address] [place] LAB 04/17/2017 Patient Education: Patient Medication Summary Completed 04/17/2017 Referral: Demetrius Benjamin WPtel: [address] [place] [address] Referral Initiated 04/05/2017 Appointment: Lita Barakat WPtel: [address] [place] [address] 03/30/17 0930---spoke with patient about ointments (km Consult 03/30/2017 Appointment: Lita Barakat WPtel: [address] [place], [place] [phone] 03/29/17 1320---spoke with patient, requip refilled wasn't received at pharmacy so verbally called (km) Consult 03/29/2017 Patient Education: Patient Medication Summary Completed 03/01/2017 Care Plan: CHEST X-RAY 2VW FRONTAL&LATL LOINC : 06002-6 Pending 03/01/2017 Visit Diagnosis Plan: Bursitis of left shoulder Discus yesi: Injection as above ICD-9 : 726.10 ICD-10 : M75.52 02/01/2017 Appointment: Lita Barakat WPtel: [address] [place], [place] [phone] 01/31 confirmed ~sl WORK IN 02/01/2017 Patient Education: Patient Medication Summary Completed 02/01/2017 Care Plan: X-RAY EXAM OF SHOULDER LOINC : 46241-7 Pending 01/30/2017 Visit Plan: May take OTC Tylenol/Ibuprof en as directed XRay at [facility] of left shoulder Tramadol 50mg 1 po q 6 hours prn pain called to [facility]. Sedation warning given (no driving, etc) RTC if no improvement 01/29/2017 Appointment: Ruchi Buchanan WPtel: [address] [place], [place] [phone] ACUTE ILLNESS 01/29/2017 Appointment: Ruchi Buchanan WPtel: [address] [place], [place] [phone] ACUTE ILLNESS 01/29/2017 Patient Education: Patient Medication Summary Completed 01/29/2017 Appointment: Lita Barakat WPtel: [address] [place], [place] [address] [place] Consult 01/10/2017 Appointment: Lita Barakat WPtel: [address] [place] [phone] [place] 12/27/2016 Patient Education: Patient Medication Summary Completed [...] : R53.83 12/21/2016 Appointment: Lita Barakat WPtel: [address] [place] [phone] ACUTE ILLNESS 12/21/2016 Patient Education: Patient Medication Summary Completed 12/21/2016 Appointment: Lita Barakat WPtel: [address] [place] [phone] [place] CANCELED 12/18/2016 Visit Diagnosis Plan: Restless [...] ICD-10 : D64.9 12/14/2016 Appointment: Lita Barakattel: [address] [place], [place] [id number] [place] 12/13 confirmed ~sl WORK IN 12/14/2016 Appointment: Lita Barakat WPtel: [address] [place] [phone] [place] CANCELED 12/14/2016 Patient Education: Patient Medication Summary Completed 12/14/2016 Appointment: Lita Barakat WPtel: [address] [place] [phone] [place] LAB 12/12/2016 Patient Education: Patient Medication Summary Completed 12/12/2016 Appointment: Lita Barakat WPtel: [address] [place], [place] [id number] in ER this weekend--called for reports Consult 12/11/2016 Appointment: Lita Barakat WPtel: [address] [place], [place] [address] [place] CANCELED 12/04/2016 Visit Diagnosis Plan: Pneumonia, unspecified organism Discussion: Called [facility] to get details on steroid and levaquin [...] ICD-10 : G25.81 11/14/2016 Appointment: Magda Toth [address] [place], [place] [address] MEDICATION REVIEW 11/14/2016 Patient Education: Patient Medication Summary Completed 11/14/2016 Appointment: Lita Barakat WPtel: [address] [place], [place] [id number] [place] RESCHEDULED 11/02/2016 Visit Diagnosis Plan: Candidal stomatitis Discussion: Diflucan and Nystatin Hold atorvastatin while taking diflucan ICD-9 : 112.0 ICD-10 : B37.0 10/31/2016 Appointment: Lita Barakat WPtel: [address] [place], [place] [id number] ACUTE ILLNESS 10/31/2016 Patient Education: Patient Medication Summary Completed 10/31/2016 Appointment: Lita Barakat WPtel: [address] [place] [address] [place] Consult 10/23/2016 Appointment: Lita Barakat WPtel: [address] [place] [phone] [place] CANCELED 10/18/2016 Visit Plan: Rx as above Wear O2 at all t imes as instructed by Dr Chacon Continue breathing treatments Supportive care otherwise reviewed Follow up ingrid if not improving 10/03/2016 Appointment: Lita Barakat WPtel: [address] [place] [address] [place] CANCELED 10/03/2016 Appointment: Magda Toth [address] [place] [address] ACUTE ILLNESS 10/03/2016 Patient Education: Patient Medication Summary Completed 10/03/2016 Visit Plan: Titrate requip to 1.5mg x 1 week Call if not helpful and will increase to 2mg qHS NO MORE nyquil at bedtime - discussed potential effects of decongestants on heart, oversedating himself, etc Will increase requip, then amitriptyline if needed to desired effect 09/04/2016 Appointment: Magda Toth [address] [place] [address] ACUTE ILLNESS 09/04/2016 Patient Education: Patient Medication Summary Completed 09/04/2016 Visit Plan: Stop requip and try elavil C ryotherapy as above See ENT for removal of right ear lesion 08/22/2016 Appointment: Lita Barakat WPtel: [address] [place] [address] ACUTE ILLNESS 08/22/2016 Patient Education: Patient Medication Summary Completed 08/22/2016 Visit Plan: Trial of requip 1mg q HS Res tart zoloft Recheck 1month 08/10/2016 Appointment: Lita Barakat WPtel: [address] [place] [address] ACUTE ILLNESS 08/10/2016 Patient Education: Patient Medication Summary Completed 08/10/2016 Visit Plan: Stop HCTZ Flagyl for diarrhe a Hydrate Discussed meds for restless legs Zofran prn Nausea 07/06/2016 Appointment: Lita Barakat WPtel: [address] [place] [address] 07/05 confirmed~sl Hospital Follow Up 07/06/2016 Patient Education: Patient Medication Summary Completed 07/06/2016 Visit Plan: Reviewed with Dr Yuval Palacios sidering his recent history, instructed him to go straight to the ER called to notify her so she can meet him there 06/22/2016 Appointment: Magda Toth [address] [place] [address] ACUTE ILLNESS 06/22/2016 Patient Education: Patient Medication Summary Completed 06/22/2016 Visit Plan: Continue current meds Prevna r 13 and High Dose Flu given 06/13/2016 Appointment: Lita Barakat WPtel: [address] [place] [address] 06/13 confirmed~sl WORK IN 06/13/2016 Patient Education: Patient Medication Summary Completed 06/13/2016 Appointment: Lita Barakat WPtel: [address] [place] [address] just went over current medications CANCELED 06/08/2016 Visit Plan: Reviewed POC with Dr Barakat Stat cbc, cmp, d dimer, troponin, bnp, ekg, cxr If any worsening of symptoms while awaiting results, patient instructed to go to ER or call 911 06/01/2016 Appointment: Magda Toth [address] [place] [address] ACUTE ILLNESS 06/01/2016 Patient Education: Patient Medication Summary Completed 06/01/2016 Referral: José Miguel Swanson WPtel: [address] [place] [address] 04/[address] swanson's office, patient is [...] eval and treatment 04/26/2016 Appointment: Magda Toth [address] [place], [place] [phone] ACUTE ILLNESS 04/26/2016 Patient Education: Patient Medication Summary Completed 04/26/2016 Care Plan: Referral Order SNOMED-CT : 30 4178188 Pending 04/26/2016 Visit Plan: Left ear flushed after conse nt with warm water with peroxide with ear syringe Patient tolerated well Ear exam is wnl following flushing Follow up PRN 04/05/2016 Appointment: Magda Toth [address] [place] [address] ACUTE ILLNESS 04/05/2016 Patient Education: Patient Medication Summary Completed 04/05/2016 Visit Plan: Increase Levemir to 25u sc d aily Increase sertraline to 2 full tablets daily--200mg Debrox or cerumenex to bilateral ears q HS for 3 nights then flush or fwup for fushing Check lab in 2mos then fwup 04/03/2016 Appointment: Lita Barakat WPtel: [address] [place], [place] [phone] 03/31 03/31 lm ~sl FOLLOW UP 04/03/2016 Patient Education: Patient Medication Summary Completed 04/03/2016 Visit Plan: Patient informed of correct dosage of levemir and how to administer. Patient verbalizes understanding and will call if any questions/concerns. 10 Units of Levemir given in office SC to right lower abdom en. Patient tolerated well. Site without redness/irritation. 03/13/2016 Appointment: Lita Barakat WPtel: [address] [place] [phone] SPECIAL 03/13/2016 Patient Education: Patient Medication Summary Completed 03/13/2016 Appointment: Lita Barakat WPtel: [address] [place] [phone] [place] LAB 03/06/2016 Patient Education: Patient Medication Summary Completed 03/06/2016 Visit Plan: Patient saw Dr. Chacon this week and was given prednisone taper for COPD Continue current meds Accuchecks daily Patient will return on Sunday morning for fasting lab incuding CBC, CMP, TSH, free T4, HbA1C, Lipids, Testosterone, PSA 03/02/2016 Appointment: Lita Barakat WPtel: [address] [place] [phone] 03/01 confirmed ~sl FOLLOW UP 03/02/2016 Patient [...] how doing 02/17/2016 Appointment: Lita Barakat WPtel: [address] [place] [address] WORK IN 02/17/2016 Patient Education: Patient Medication Summary Completed 02/17/2016 Visit Plan: Xrays to further evaluate Alvarez spect heel spur(s) Will call with results Has had injections in the past that were helpful Dr Barakat can do them or can refer to podiatry if warranted 02/14/2016 Appointment: Magda Toth [address] [place] [address] ACUTE ILLNESS 02/14/2016 Patient Education: Patient Medication Summary Completed 02/14/2016 Visit Plan: Increase Zoloft to 150mg cooper ly 01/31/2016 Appointment: Lita Barakat WPtel: [address] [place] [phone] 01/26 confirmed `sl FOLLOW UP 01/31/2016 Patient Education: Patient Medication Summary Completed 01/31/2016 Visit Plan: Decrease citalopram to 20mg q AM for 1 week then stop Start zoloft 50mg q HS for 1 week then increase to 100mg q HS 12/30/2015 Appointment: Lita Barakat WPtel: [address] [place] [phone] [place] 12/28 confirmed~sl ACUTE ILLNESS 12/30/2015 Patient Education: Patient Medication Summary Completed 12/30/2015 Visit Plan: Check Neck US 12/16/2015 Appointment: [facility]ark[facility] [facility] 12/14 lm ~sl 12/15 confirmed-sp FOLLOW UP 12/16/2015 Patient Education: Patient Medication Summary Completed 12/16/2015 Care Plan: US EXAM OF HEAD AND NECK LOIN C : 80530-1 Ordered 12/16/2015 Appointment: [facility]el[facility] 12/09 confirmed-sp 12/12 lm ~sl Patient r kareemurn call and stated he just plain forgot ~sl FOLLOW UP 12/13/2015 Visit Plan: Had changing lesions of fore head and left mastoid area removed earlier today. Follow-up in one week Will proceed with soft tissue ultrasound of neck/ left cervical lymph node if no improvement antibiotics Clindamycin 300mg PO TID 12/06/2015 Appointment: Stephanie [facility]ios [facility]Ptel[facility] [facility] 12/06/2015 Patient Education: Patient Medication Summary Completed 12/06/2015 Referral: Lisbeth Darby WPtel: [facility] [address] [facility] 11/18/15 called luther at [place] office and confirmed time and date of appointment with patient~sl Initiated 11/18/2015 Visit Plan: Referral to Dermatology for removal of facial skin lesions Cefdinir PO bid Topical Mupirocin to skin lesions bid 11/15/2015 Appointment: Stephanie Rios WPtel: [facility] ACUTE ILLNESS 11/15/2015 Patient Education: Patient Medication Summary Completed 11/15/2015 Visit Plan: Continue current meds Accuch ecks daily Fwup with ophthamology as scheduled Will check lab in 3mos then fwup due to recent meds that will affect blood sugar 10/05/2015 Appointment: Lita Barakat WPtel: [address] [place] [address] 10/04/15 appt confirmed cn Annual Well Visit 08/2016 Patient Education: Patient Medication Summary Completed 10/05/2015 Visit Plan: Trajenta -1 sample box given Return visit in 6 weeks for fasting labs Notify for worsening symptoms such as Increased redness, swelling, pain or drainage of Rt. knee 07/22/2015 Appointment: Stephanie Rios WPtel: [address] [place], [place] [address] 07/21 vm left cn FOLLOW UP 07/22/2015 Patient Education: Patient Medication Summary Completed 07/22/2015 Visit Plan: Continue to change dressing twice daily and apply Mupirocin Complete Doxycycline as directed. Follow-up for worsening symptoms, such as increased swelling, redness or pain. 07/01/2015 Appointment: Stephanie Rios WPtel: [address] [place], [place] [phone] FOLLOW UP 07/01/2015 Patient Education: Patient Medication Summary Completed 07/01/2015 Visit Plan: Pressure dressing applied to draining wound left knee. Instructed to change dressing twice daily and continue Mupirocin topical Doxycycline PO bid x 10 days Wound culture obtained. Wound tissue sent to pathology Follow-up in 3 days 06/28/2015 Appointment: Stephanie Rios WPtel: [facility] ACUTE ILLNESS 06/28/2015 Patient Education: Patient Medication Summary Completed 06/28/2015 Visit Plan: Complete antibiotics Follow- up for increased tenderness, swelling or drainage. 06/09/2015 Appointment: Stephanie Rios WPtel: [address] [place] [phone] 06/08/15 lm FOLLOW UP 06/09/2015 Patient Education: Patient Medication Summary Completed 06/09/2015 Visit Plan: Apply pressure dressing toda y Continue antibiotics and topical Mupirocin Follow-up in 2 days Bursa drained from open area using pressure--serosanguinous drainage 06/07/2015 Appointment: Stephanie Rios WPtel: [address] [place], [place] [phone] 06/04/15 confirmed with patient FOLLOW UP 0 06/07/2015 Patient Education: Patient Medication Summary Completed 06/07/2015 Visit Plan: Wound culture Lt. knee Apply mupirocin to open wound bid Clindamycin 600 mg PO bid x 10 days Follow-up on Sunday06/03/2015 Appointment: Stephanie Rios WPtel: [address] [place], [place] [phone] ACUTE ILLNESS 06/03/2015 Patient Education: Patient Medication Summary Completed 06/03/2015 Visit Plan: Accuchecks daily Check CMP, HbA1C today Patient is noncompliant with meds and diet but patient says he is doing everything he is supposed to do Wants to try performomist instead of albuterol in SVN 06/01/2015 Appointment: Lita Barakat WPtel: [address] [place], [place] [phone] 05/28 appt confirmed cn FOLLOW UP 06/01/20 Patient Education: Patient Medication Summary Completed 06/01/2015 Visit Plan: Change Breo Ellipta to Advai r 500/50 1 p BID this next month Continue turdoza Use albuterol prn Check CMP, HbA1C today Accuchecks daily Cryotherapy as above 02/25/2015 Appointment: Lita Barakat WPtel: [address] [place], [place] [phone] 02/24 appt confirmed and explained needed payment he said ok FOLLOW UP 02/25/2015 Patient Education: Patient Medication Summary Completed 02/25/2015 Referral: Lopez Chacon1 [facility] C&D [id number] Will put patient on cancellation list Initiated 12/08/2014 Appointment: Lita Barakat WPtel: [address] [place], [place] [phone] Hospital Follow Up 10/29/2014 Visit Plan: Finish prednisone Continue S VNs with albuterol QID See pulmonology and start Pulmonary rehab Once again discussed taking it easy this winter--that he is high risk for exacerbation 10/27/2014 Appointment: Lita Barakat WPtel: [address] [place], [place] [phone] FOLLOW UP 10/27/2014 Patient Education: Patient Medication Summary Completed 10/27/2014 Appointment: Lita Barakat WPtel: [address] [place], [place] [phone] FOLLOW UP 10/26/2014 Appointment: Stephanie Rios WPtel: [address] [place], [place] [phone] WORK IN 10/21/2014 Patient Education: Patient Medication Summary Completed 10/21/2014 Patient Education: Patient Medication Summary Completed 10/19/2014 Visit Plan: Continue oxygen and SVNS wit h duoneb Increase farxiga to 10mg daily Diflucan 100mg daily for 1week 10/06/2014 Appointment: Lita Barakat WPtel: [address] [place], [place] [phone] Moved appt time to 2:45pm FOLLOW UP 2014 Patient Education: Patient Medication Summary Completed 10/06/2014 Visit Plan: Finish omnicef Continue Breo BID and Turdoza Use SVNS with duoneb at least TID for next 2weeks then go to prn 09/21/2014 Appointment: Lita Barakat WPtel: [address] [place], [place] [phone] Hospital Follow Up 09/21/2014 Patient Education: Patient Medication Summary Completed 09/21/2014 Patient Education: [facility] - Saving Horace[employer] - Ventolin HFA - 18+ - Dynamic Portal ID Completed 09/21/2014 Appointment: Stephanie Rios WPtel: [address] [place], [place] [phone] Scheduled by 09/07 patient rescheduled to 09/08 with Stephanie. Hospital Follow Up 09/08/2014 Patient Education: Patient Medication Summary Completed 09/08/2014 Appointment: Stephanie Rios WPtel: [address] [place] [address] FOLLOW UP 09/02/2014 Patient Education: Patient Medication Summary Completed 09/02/2014 Patient Education: [employer] - Antibi otics, Analgesics 18+, Oral Contraceptives F 18+ Completed 09/02/2014 Appointment: Lita Barakat WPtel: [address] [place], [place] [phone] UA 08/27/2014 Patient Education: Patient Medication Summary [...] prn sleep 08/10/2014 Appointment: Lita Barakat WPtel: [address] [place] [address] Annual Well Visit 08/10/2014 Patient Education: Patient Medication Summary Completed 08/10/2014 Appointment: Lita Barakat WPtel: [address] [place], [place] [phone] LAB 08/05/2014 Patient Education: Patient Medication Summary Completed 08/05/2014 Visit Plan: ECHO results reviewed Contin ue Breo and Turdoza Pt starts PT this afternoon for back--has had one epidural with no help in pain 05/05/2014 Appointment: Lita Barakat WPtel: [address] [place], [place] [phone] FOLLOW UP 05/05/2014 Patient Education: Patient Medication Summary Completed 05/05/2014 Visit Plan: Continue Breo and Turdoza Camargo s heart tests scheduled next week Will see surgeon for removal of skin cancer to neck after done with cardiac workup 03/24/2014 Appointment: Lita Barakat WPtel: [address] [place], [place] [phone] FOLLOW UP 03/24/2014 Patient Education: Patient Medication Summary Completed 03/24/2014 Visit Plan: Proceed with cardiology eval uation as patient is has numerous risk factors for CAD Change Symbicort to Breo 1p BID and add Turdorza 1p BID Recheck in weeks Check 2-D ECHO and lexiscan 03/10/2014 Appointment: Lita Barakat WPtel: [address] [place], [place] [phone] FOLLOW UP 03/10/2014 Patient Education: Patient Medication Summary Completed 03/10/2014 Visit Plan: Shoulder injection as above Back brace to use when doing any lifting for stability 12/16/2013 Appointment: Lita Barakat WPtel: [address] [place] [address] ACUTE ILLNESS 12/16/2013 Patient Education: Patient Medication Summary Completed 12/16/2013 Visit Plan: Continue symbicort and Turdo za Salt water gargles Omnicef 300mg 2 po daily for 1wk Phenergan with codeine 10/09/2013 Appointment: Lita Barakat WPtel: [address] [place] [address] WORK IN 10/09/2013 Patient Education: Patient Medication Summary Completed 10/09/2013 Appointment: Ruchi Buchanan WPtel: [address] [place], [place] [phone] ACUTE ILLNESS 09/18/2013 Patient Education: Patient Medication Summary Completed 09/18/2013 Visit Plan: Check on repeat CXR Finish a bx Start Tradjenta to replace metformin 08/13/2013 Appointment: Lita Barakat WPtel: [address] [place] [phone] 08/12 Hospital Follow Up 08/13/2013 Patient Education: Patient Medication Summary Completed 08/13/2013 Visit Plan: Admit to hospital 08/06/2013 Appointment: Stephanie Rios WPtel: [address] [place], [place] [phone] [place] ACUTE ILLNESS 08/06/2013 Patient Education: Patient Medication Summary Completed 08/06/2013 Visit Plan: Continue current meds Contin ue accuchecks daily Proceed with stress test due to high risk for CAD 07/16/2013 Appointment: Lita Barakat WPtel: [address] [place] [address] FOLLOW UP 07/16/2013 Patient Education: Patient Medication Summary Completed 07/16/2013 Appointment: Lita Barakat WPtel: [address] [place] [address] [place] LAB 06/25/2013 Patient Education: Patient Medication Summary Completed 06/25/2013 Visit Plan: prednisone and azithromycin. Doing CBC and mycoplasma blood draw. Will continue inhaler and albuterol breathing treatments. 04/09/2013 Appointment: Kimberly Villalba WPtel: [address] [place] [address] ACUTE ILLNESS 04/09/2013 Patient Education: Patient Medication Summary Completed 04/09/2013 Appointment: Lita Barakat WPtel: [address] [place] [address] ACUTE ILLNESS 02/11/2013 Patient Education: Patient Medication Summary Completed 02/11/2013 Appointment: Ruchi Buchanan WPtel: [address] [place] [address] ACUTE ILLNESS 01/31/2013 Patient Education: Patient Medication Summary Completed 01/31/2013 Visit Plan: Cefdinir and medrol dose pac k. Codeine/guiaf cough syrup. Has colonoscopy on Sunday. Pt. is to notify if fever occurs or symptoms worsen. Hydration and rest. 01/20/2013 Appointment: Kimberly Villalba WPtel: [address] [place] [address] ACUTE ILLNESS 01/20/2013 Patient Education: Patient Medication Summary Completed 01/20/2013 Visit Plan: Scopalamine patch and vestib ular exercises 12/19/2012 Appointment: Lita Barakat WPtel: [address] [place], [place] [id number] ACUTE ILLNESS 12/19/2012 Patient Education: Patient Medication Summary Completed 12/19/2012 Visit Plan: Dr. Swanson consult if no impr ovement in hearing. Pt. reports he will notify if no better in one week. Willam consult for skin lesion. 10/21/2012 Appointment: Kimberly Villalba WPtel: [address] [place] [address] ACUTE ILLNESS 10/21/2012 Patient Education: Patient Medication Summary Completed 10/21/2012 Appointment: Liat Barakat WPtel: [address] [place] [address] LAB 09/19/2012 Patient Education: Patient Medication Summary Completed 09/19/2012 Visit Plan: Check fasting lab in AM--CMP , Lipids, HbA1C 09/18/2012 Appointment: Lita Barakat WPtel: [address] [place] [address] FOLLOW UP 09/18/2012 Patient Education: Patient Medication Summary Completed 09/18/2012 Appointment: Lita Barakat WPtel: [address] [place] [address] appt time scheduled sooner FOLLOW UP 09/05 Visit Plan: Doxycycline and Prednisone I ncrease SVN to QID Add back Symbicort 160/4.5 2 p BID 08/28/2012 Appointment: Lita Barakat WPtel: [address] [place] [address] FOLLOW UP 08/28/2012 Patient Education: Patient Medication Summary Completed 08/28/2012 Appointment: Lita Barakat WPtel: [address] [place] [address] Annual Well Visit 07/10/2012 Patient Education: Patient Medication Summary Completed 07/10/2012 Visit Plan: Finish Z-pack Add Nasonex Ad d Meclizine Vestibular exercises Continue current meds and accuchecks Check lab and fwup in 4mos 05/09/2012 Appointment: Lita Barakat WPtel: [address] [place], [place] [phone] number no longer works FOLLOW UP 2 Patient Education: Patient Medication Summary Completed 05/09/2012 Appointment: Lita Barakat WPtel: [address] [place], [place] [phone] [place] LAB 05/06/2012 Patient Education: Patient Medication Summary Completed 05/06/2012 Appointment: Lita Barakat WPtel: [address] [place] [phone] [place] LAB 05/02/2012 Appointment: Lita Barakat WPtel: [address] [place], [place] [phone] [place] INJECTION 02/05/2012 Patient Education: Patient Medication Summary Completed 02/05/2012 Visit Plan: cefdinir. Will focus on rest and fluids. Pt. reports he is using breathing treatments as needed. Pt. will monitor for worsening symptoms or fever. 10/02/2011 Appointment: Kimberly Villalba WPtel: [address] [place], [place] [phone] ACUTE ILLNESS 10/02/2011 Patient Education: Patient Medication Summary Completed 10/02/2011 Appointment: Lita Barakat WPtel: [address] [place] [phone] [place] INJECTION 08/10/2011 Patient Education: Patient Medication Summary Completed 08/10/2011 Visit Plan: Continue current meds Restar t Advair Restart exercise Flu shot given 08/07/2011 Appointment: Lita Barakat WPtel: [address] [place] [phone] FOLLOW UP 08/07/2011 Patient Education: Patient Medication Summary Completed 08/07/2011 Appointment: Lita Barakat WPtel: [address] [place] [phone] [place] LAB 07/26/2011 Patient Education: Patient Medication Summary Completed 07/26/2011 Visit Plan: ALEKSANDER zapata DC [place] Continue Metformin but change to BID Add Lantus 25u sc q PM BS readings in 1wk 04/03/2011 Appointment: Lita Barakat WPtel: [address] [place], [place] [phone] ACUTE ILLNESS 04/03/2011 Patient Education: Patient Medication Summary Completed 04/03/2011 Appointment: Lita Barakat WPtel: [address] [place] [phone] [place] INJECTION 01/19/2011 Patient Education: Patient Medication Summary Completed 01/19/2011 Appointment: Lita Barakat WPtel: [address] [place] [address] ACUTE ILLNESS 01/18/2011 Patient Education: Patient Medication Summary Completed 01/18/2011 Appointment: Lita Barakat WPtel: [address] [place] [phone] [place] INJECTION 12/21/2010 Patient Education: Patient Medication Summary Completed 12/21/2010 Appointment: Lita Barakat WPtel: [address] [place] [address] [place] FOLLOW UP 12/19/2010 Patient Education: Patient Medication Summary Completed 12/19/2010 Appointment: Lita Barakat WPtel: [address] [place] [phone] [place] LAB 12/07/2010 Patient Education: Patient Medication Summary Completed 12/07/2010 Appointment: Kimberly Villalba WPtel: [address] [place], [place] [phone] ACUTE ILLNESS 04/05/2010 Patient Education: Patient Medication Summary Completed 04/05/2010 Appointment: Lita Barakat WPtel: [address] [place] [phone] [place] WORK IN 03/14/2010 Patient Education: Patient Medication Summary Completed 03/14/2010 Appointment: Lita Barakat WPtel: [address] [place] [phone] LAB 03/02/2010 Visit Plan: HbA1C in 3mos. Continue Accu checks BID alternating times. Switch lexapro to celexa 01/13/2010 Appointment: Lita Barakat WPtel: [address] [place], [place] [phone] FOLLOW UP 01/13/2010 Patient Education: Patient Medication Summary Completed 01/13/2010 Appointment: Lita Barakat WPtel: [address] [place], [place] [phone] FOLLOW UP 01/11/2010 Visit Plan: Pt. will continue the Avalox and Doxycycline regimen as prescribed the previous day. He has been advised to continue inhalers, breathing treatments and oxygen therapy for at least the weekend. Moderate activity without strenuous exercise. The pt. will seek immediate re-eval if his symptoms worsen. 12/23/2009 Appointment: Kimberly Villalba WPtel: [address] [place], [place] [phone] FOLLOW UP 12/23/2009 Patient Education: Patient Medication [...] tomorrow morning. 12/22/2009 Appointment: Kimberly Villalba WPtel: [address] [place], [place] [phone] ACUTE ILLNESS 12/22/2009 Patient Education: Patient Medication Summary Completed 12/22/2009 Appointment: Kimberly Villalba WPtel: [address] [facility] [place] FOLLOW UP 12/21/2009 Appointment: Lita Barakat WPtel: [address] [facility] [place] INJECTION 12/16/2009 Patient Education: Patient Medication Summary Completed 12/16/2009 Appointment: Kimberly Villalba WPtel: [address] [place], [place] [phone] ACUTE ILLNESS 12/13/2009 Patient Education: Patient Medication Summary Completed 12/13/2009 Care Plan: X-RAY EXAM OF SHOULDER lt shoulder (pain ra diates across the shoulder) Hand carried orders to PSYCHIATRIC LOINC : 37418-8 Ordered 12/13/2009 Care Plan: X-RAY EXAM THORAC SPINE 2VWS Hand carried order LOINC : 02557-8 Ordered 12/13/2009 Care Plan: X-RAY EXAM RIBS UNI 2 VIEWS Posterior ribs of lt. side Pt. hand carries order to PSYCHIATRIC LOINC : 28155-8 Ordered 12/13/2009 Referral: José Miguel Swanson WPtel: [address] [place] [address] [address] [place] Referral Appointment Requested Referral: José Miguel Swanson WPtel: [address] [address] [place] Referral Appointment Requested Referral: Chandu Quarles WPtel: [phone] Quarles for screening colonoscopy. P atronaldo notified that [place] office will book appt with him Initiated Referral: Santosh Machado WPtel: [address] [facility] [place] Referral Appointment Requested Referral: José Miguel Swanson WPtel: [address] [address] [place] Referral Initiated Referral: Lopez Chacon [address] [facility] C[address] [address] [place] Referral Initiated Referral: Demetrius Benjamin WPtel: [address] [place] [address] [place] Referral Appointment Requested Referral: José Miguel Swanson WPtel: [address] Referral Appointment Requested Referral: José Miguel Swanson WPtel: [address] Referral Initiated Instructions Comment . Saline nasal flushes prn. Tylenol/Motr in prn headache. Notify if persists/symptoms worsening. . MRI at [facility] Hydrocodone 5.325 1 po q 4-6 hours [...]
--- OUTSIDE RECORDS SUMMARY | 2020-03-28 16:00 | XMS REPORT | CCD ---
Author Author Leandro Barakat D.O. Organization [facility] Address [address] [place] [address] Phone Care Team Providers Care Floorhand Name Role Phone Lita Barakat D.O., PP Unavailable CCM Unavailable Summary Purpose Interface Exchange Insurance Providers Payer name Policy type / Coverage type Covered alliance party ID Effective Begin Date Effective End Date [employer] MEDICARE Medicare Part B [id number] 2019 Unknown Family history Brother Diagnosis Age At Onset Cancer Unknown Father Diagnosis Age At Onset Heart disease Unknown Mother Diagnosis Age At Onset Heart disease Unknown Social History Social History Element Codes Description Effective Dates Tobacco history SNOMED CT: 2947092 Former smoker quit 15 years ago 08/07/2011 [...] R07.9 06/22/2016 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: [...] Fill Instructions losartan 100 mg tablet RxNorm: 570153 1TD 02/03/2020 05/02/2020 Active Sinemet CR 50 mg-200 mg tablet,extended release RxNorm: 8343 41 1 Tablet(s) Oral three times a day 02/02/2020 07/31/2020 Active Generic For:*S INEMET CR 50/200 TABLET SA 07/08/2018 3:09:11 PM hydrocodone 10 mg-acetaminophen 325 mg tablet RxNorm: 038223 1 Tablet(s) Oral Q4H as needed for pain 01/29/2020 No Stop Date Active ipratropium 0.5 mg-albuterol 3 mg (2.5 mg base)/3 mL n ebulization soln RxNorm: 4534834 USE 1 VIAL IN NEBULIZER Q4H (THIS REPLACES ALBUTEROL S OLUTION) 01/08/2020 02/06/2020 Active prednisone 20 mg tablet RxNorm: 354747 1 Tablet(s) Oral two remy es a day 12/25/2019 01/01/2020 Inactive Levemir FlexTouch U-100 Insulin 100 unit/mL (3 mL) sub cutaneous pen RxNorm: 435094 10 Unit(s) Subcutaneous every night at bedtime 12/22/2019 N o Stop Date Active baclofen 10 mg tablet RxNorm: 300945 1 Tablet(s) Oral QPM for p ain/spasm 12/22/2019 01/21/2020 Inactive ipratropium 0.5 mg-albuterol 3 mg (2.5 mg base)/3 mL n ebulization soln RxNorm: 1046450 USE 1 VIAL IN NEBULIZER Q4H (THIS REPLACES ALBUTEROL S OLUTION) 11/27/2019 12/16/2019 Inactive hydrocodone 10 mg-acetaminophen 325 mg tablet RxNorm: 637260 1 Tablet(s) Oral Q4H as needed for pain 11/13/2019 01/28/2020 Inactive Seroquel 50 mg tablet RxNorm: 558340 1 Tablet(s) Oral QPM as ne eded for sleep 10/07/2019 12/21/2019 Inactive ropinirole 4 mg tablet RxNorm: 318572 3 TABLET(S) BY [facility] DAILY AT BEDTIME FOR RESTLESS LEGS 09/29/2019 12/27/2019 Inactive Generic For:REQU IP 4 MG TABLET 09/29/2019 7:52:42 AM N O T I C E Last quantity doesn't match original quantity ropinirole 4 mg tablet RxNorm: 935281 3 TABLET(S) BY [facility] DAILY AT BEDTIME FOR RESTLESS LEGS 09/26/2019 09/28/2019 Inactive Generic For:REQU IP 4 MG TABLET 09/26/2019 9:08:48 AM N O T I C E Last quantity doesn't match original quantity ipratropium 0.5 mg-albuterol 3 mg (2.5 mg base)/3 mL n ebulization soln RxNorm: 4754013 USE 1 VIAL IN NEBULIZER EVERY FOUR HOURS (THIS REPLACES ALBUTEROL SOLUTION) 09/26/2019 10/15/2019 Inactive Generic For:*DUO NEB 2.5-0.5 MG/3 ML SOLN 09/26/2019 9:08:53 AM hydrocodone 10 mg-acetaminophen 325 mg tablet RxNorm: 756351 1 Tablet(s) Oral Q4H as needed for pain 09/09/2019 09/09/2019 Inactive hydrocodone 10 mg-acetaminophen 325 mg tablet RxNorm: 870096 1 Tablet(s) Oral Q4H as needed for pain 09/09/2019 09/08/2019 Inactive ondansetron HCl 4 mg tablet RxNorm: 506537 1 Tablet(s) Oral QPM for nausea 08/12/2019 10/10/2019 Inactive ipratropium 0.5 mg-albuterol 3 mg (2.5 mg base)/3 mL n ebulization soln RxNorm: 0323694 1 Unit Dose INH Q4H 08/12/2019 09/25/2019 Inactive replaces albuterol solution Augmentin 875 mg-125 mg tablet RxNorm: 604110 1 Tablet(s) Oral two times a day 08/07/2019 08/17/2019 Inactive prednisone 20 mg tablet RxNorm: 148763 1 Tablet(s) Oral QD 08/05/2008/04/2019 Inactive prednisone 20 mg tablet RxNorm: 408957 1 Tablet(s) Oral QD 08/05/2008/06/2019 Inactive Levaquin 500 mg tablet RxNorm: 627737 1 Tablet(s) Oral QD Replaces azithromycin (z-pack) 07/31/2019 08/05/2019 Inactive Levaquin 500 mg tablet RxNorm: 076954 1 Tablet(s) Oral QD Replaces azithromycin (z-pack) 07/21/2019 07/26/2019 Inactive Levaquin 500 mg tablet RxNorm: 093396 1 Tablet(s) Oral QD Replaces azithromycin (z-pack) 07/21/2019 07/20/2019 Inactive Zithromax Z-Gui 250 mg tablet RxNorm: 681756 Tablet(s) Oral 07/22/2019 Inactive Zithromax Z-Gui 250 mg tablet RxNorm: 696107 Tablet(s) Oral 019 07/15/2019 Inactive Symbicort 160 mcg-4.5 mcg/actuation HFA aerosol inhaler RxNo rm: 2835678 2 Puff(s) Inhalation two times a day 07/14/2019 07/14/2019 Inactive Tessalon Perles 100 mg capsule RxNorm: 521545 1 Capsule(s) Oral Q8H as needed 07/14/2019 08/06/2019 Inactive Seroquel 50 mg tablet RxNorm: 669950 1 Tablet(s) Oral QPM as ne eded for sleep 07/01/2019 10/06/2019 Inactive ondansetron HCl 4 mg tablet RxNorm: 636446 1 Tablet(s) Oral QPM for nausea 06/24/2019 07/24/2019 Inactive Seroquel 25 mg tablet RxNorm: 857882 1 Tablet(s) Oral every nig ht at bedtime 06/19/2019 06/18/2019 Inactive Seroquel 25 mg tablet RxNorm: 115592 1 Tablet(s) Oral every nig ht at bedtime 06/19/2019 06/30/2019 Inactive trazodone 150 mg tablet RxNorm: 573330 1/2 Tablet(s) PO QHS as needed for sleep 06/11/2019 06/17/2019 Inactive replaces PA on doxep in trazodone 150 mg tablet RxNorm: 948835 1/2 Tablet(s) PO QHS as needed for sleep 05/12/2019 06/11/2019 Inactive replaces PA on doxep in Vitamin D3 5,000 unit tablet RxNorm: 769472 1 Tablet(s) PO QD 05/09 No Stop Date Active magnesium oxide 400 mg (241.3 mg magnesium) tablet RxNorm: 1 81826 1 Tablet(s) PO QHS 05/09/2019 No Stop Date Active cyanocobalamin (vit B-12) 1,000 mcg/mL injection solution Rx Norm: 098285 1 injection weekly for 4 weeks 1 Milliliter(s) Inj 05/09/2019 12/21/2019 Inactive ferrous sulfate 325 mg (65 mg iron) tablet RxNorm: 783527 1 Tab let(s) PO QD 05/09/2019 12/21/2019 Inactive ropinirole 4 mg tablet RxNorm: 607393 3 TABLET(S) BY [facility] DAILY AT BEDTIME FOR RESTLESS LEGS 03/26/2019 06/23/2019 Inactive Generic For:REQU IP 4 MG TABLET 03/26/2019 11:23:36 AM N O T I C E Last quantity doesn't match original quantity pantoprazole 40 mg tablet,delayed release RxNorm: 456221 Tablet(s) TAKE 1 TABLET BY MOUTH DAILY FOR STOMACH 03/24/2019 06/21/2019 Inactive Gener ic For:PROTONIX 40MG TAB EC 01/03/2019 1:23:44 PM hydroxyzine HCl 10 mg tablet RxNorm: 891669 1 Tablet(s) PO BID as needed 03/24/2019 04/06/2019 Inactive ipratropium-albuterol 0.5 mg-3 mg(2.5 mg base)/3 mL ne bulization soln RxNorm: 8794413 1 Unit Dose INH Q4H 03/21/2019 No Stop Date Active replaces albuterol solution meclizine 12.5 mg tablet RxNorm: 208976 1 Tablet(s) PO BID as neede d 03/21/2019 12/21/2019 Inactive losartan 100 mg tablet RxNorm: 924366 1 Tablet(s) PO QD replace s lisinopril 03/13/2019 09/08/2019 Inactive fluconazole 100 mg tablet RxNorm: 546652 1 Tablet(s) PO QD 03/13/20 19 03/19/2019 Inactive nystatin 100,000 unit/mL oral suspension RxNorm: 357993 5 Unit( s) PO QID 03/13/2019 03/26/2019 Inactive tramadol 50 mg tablet RxNorm: 589607 1 Tablet(s) PO TID as needed for pain TAKE 2 TABS OF EXTRA STRENGTH TYLENOL WITH EACH DOSE 03/10/2019 04/06/2019 Inactive Generic For:*ULTRAM 50 MG TABLET 01/15/2019 4:55:26 PM Sinemet CR 50 mg-200 mg tablet,extended release RxNorm: 8343 41 1 Tablet(s) PO TID 02/26/2019 08/24/2019 Inactive Generic For:*SIN EMET CR 50/200 TABLET SA 07/08/2018 3:09:11 PM trazodone 150 mg tablet RxNorm: 084676 1/2 Tablet(s) PO QHS as needed for sleep 02/13/2019 02/12/2019 Inactive trazodone 150 mg tablet RxNorm: 907998 1/2 Tablet(s) PO QHS as needed for sleep 02/13/2019 02/25/2019 Inactive replaces PA on doxep in doxepin 10 mg capsule RxNorm: 3711893 1-2 Capsule(s) PO QHS prn sleep 02/13/2019 02/13/2019 Inactive Novolog U-100 Insulin aspart 100 unit/mL subcutaneous soluti on RxNorm: 408325 INJECT 10 UNIT(S) SUBCUTANEOUSLY BEFORE MEALS 01/31/2019 05/30/2019 In active 01/31/2019 1:39:10 PM ipratropium-albuterol 0.5 mg-3 mg(2.5 mg base)/3 mL ne bulization soln RxNorm: 0678553 1 Unit Dose INH Q4H 01/17/2019 03/20/2019 Inactive replaces albuterol solution tramadol 50 mg tablet RxNorm: 165369 1 Tablet(s) PO TID as needed for pain TAKE 2 TABS OF EXTRA STRENGTH TYLENOL WITH EACH DOSE 01/15/2019 02/03/2019 Inactive Generic For:*ULTRAM 50 MG TABLET 01/15/2019 4:55:26 PM Sinemet CR 50 mg-200 mg tablet,extended release RxNorm: 8343 41 1 Tablet(s) PO BID 01/03/2019 02/25/2019 Inactive Generic For:*SIN EMET CR 50/200 TABLET SA 07/08/2018 3:09:11 PM losartan 100 mg tablet RxNorm: 315799 1 Tablet(s) PO QD replace s lisinopril 01/03/2019 03/12/2019 Inactive Symbicort 160 mcg-4.5 mcg/actuation HFA aerosol inhaler RxNo rm: 7701593 2 Puff(s) INH BID 01/03/2019 01/02/2019 Inactive pantoprazole 40 mg tablet,delayed release RxNorm: 144579 TAKE 1 TABLET BY MOUTH DAILY FOR STOMACH 01/03/2019 03/23/2019 Inactive Generic For:[place] OTONIX 40MG TAB EC 01/03/2019 1:23:44 PM nystatin 100,000 unit/mL oral suspension RxNorm: 256111 Unit(s) 5 Unit(s) PO QID swish and spit 01/02/2019 11/11/2019 Inactive Incruse Ellipta 62.5 mcg/actuation powder for inhalation RxN orm: 5266864 1 Capsule(s) INH QD 12/25/2018 12/21/2019 Inactive Tessalon Perles 100 mg capsule RxNorm: 248955 1 Capsule(s) PO T ID for cough 12/25/2018 02/25/2019 Inactive Medrol (Gui) 4 mg tablets in a dose pack RxNorm: 690313 Tablet(s) PO Use as directed 12/23/2018 01/02/2019 Inactive Levemir FlexTouch U-100 Insulin 100 unit/mL (3 mL) sub cutaneous pen RxNorm: 991460 20 Unit(s) SQ QD with pen needles 12/13/2018 05/11/2019 Inactiv e prednisone 20 mg tablet RxNorm: 024723 1 Tablet(s) PO QD 12/12/2018 0 12/11/2018 Inactive prednisone 20 mg tablet RxNorm: 898447 1 Tablet(s) PO QD 12/12/2018 0 12/16/2018 Inactive promethazine 6.25 mg-codeine 10 mg/5 mL syrup RxNorm: 081739 5 Milliliter(s) PO QHS as needed for cough 12/09/2018 12/18/2018 Inactive cefdinir 300 mg capsule RxNorm: 531589 1 Capsule(s) PO BID 12/10/19 19 12/18/2018 Inactive fluconazole 100 mg tablet RxNorm: 538876 1 Tablet(s) PO QD 12/06/19 19 12/08/2018 Inactive ropinirole 4 mg tablet RxNorm: 367071 3 Tablet(s) PO QHS for re stless legs 12/04/2018 03/03/2019 Inactive Novolog U-100 Insulin aspart 100 unit/mL subcutaneous soluti on RxNorm: 628550 INJECT 10 UNIT(S) SUBCUTANEOUSLY BEFORE MEALS 12/04/2018 01/30/2019 In active 12/04/2018 10:02:42 AM nystatin 100,000 unit/mL oral suspension RxNorm: 868147 5 Unit(s) PO QID swish and spit 11/25/2018 12/18/2018 Inactive ropinirole 4 mg tablet RxNorm: 935670 3 Tablet(s) PO QHS for re stless legs 11/04/2018 12/03/2018 Inactive prednisone 20 mg tablet RxNorm: 538346 1 Tablet(s) PO BID 10/23/2018 10/29/2018 Inactive ropinirole 4 mg tablet RxNorm: 224827 3 Tablet(s) PO QHS for re stless legs 10/14/2018 11/04/2018 Inactive pantoprazole 40 mg tablet,delayed release RxNorm: 412849 1 Tablet(s) PO QD forstomach 10/10/2018 01/02/2019 Inactive Symbicort 160 mcg-4.5 mcg/actuation HFA aerosol inhaler RxNo rm: 8883989 2 Puff(s) INH BID 10/10/2018 01/03/2019 Inactive Novolog U-100 Insulin aspart 100 unit/mL subcutaneous soluti on RxNorm: 989741 INJECT 10 UNIT(S) SUBCUTANEOUSLY BEFORE MEALS 10/10/2018 12/03/2018 In active 10/10/2018 11:30:01 AM Sinemet CR 50 mg-200 mg tablet,extended release RxNorm: 8343 41 1 Tablet(s) PO BID 09/26/2018 01/03/2019 Inactive Generic For:*SIN EMET CR 50/200 TABLET SA 07/08/2018 3:09:11 PM ropinirole 4 mg tablet RxNorm: 921990 2 Tablet(s) PO QHS for re stless legs 09/18/2018 10/13/2018 Inactive metformin ER 1,000 mg tablet,extended release 24hr RxNorm: 1 132620 1 Tablet(s) PO BID 09/09/2018 12/18/2018 Inactive ropinirole 4 mg tablet RxNorm: 608677 2 Tablet(s) PO QHS for re stless legs 08/21/2018 09/17/2018 Inactive doxycycline hyclate 100 mg capsule RxNorm: 0769742 1 Capsule(s) PO BID 08/07/2018 08/13/2018 Inactive ropinirole 4 mg tablet RxNorm: 330267 1 Tablet(s) PO QHS replac es 1mg dose 08/07/2018 08/20/2018 Inactive ropinirole 2 mg tablet RxNorm: 570189 TAKE 3 TABLETS BY MOUTH DAILY AT BEDTIME DO NOT EXCEED 3 TABLETS PER DAY!!!! 07/31/2018 08/06/2018 Inactive Generic For:REQUIP 2 MG TABLET 07/30/2018 3:50:28 PM Symbicort 160 mcg-4.5 mcg/actuation HFA aerosol inhaler RxNo rm: 8121009 2 Puff(s) INH BID 07/12/2018 10/09/2018 Inactive Sinemet CR 50 mg-200 mg tablet,extended release RxNorm: 8343 41 TAKE 1 TABLET BY MOUTH TWICE DAILY 07/08/2018 09/26/2018 Inactive Generic For:*S INEMET CR 50/200 TABLET SA 07/08/2018 3:09:11 PM losartan 100 mg tablet RxNorm: 087703 1 Tablet(s) PO QD replace s lisinopril 06/17/2018 12/13/2018 Inactive Novolog U-100 Insulin aspart 100 unit/mL subcutaneous soluti on RxNorm: 166224 10 Unit(s) SQ AC 06/17/2018 10/09/2018 Inactive albuterol sulfate 2.5 mg/3 mL (0.083 %) solution for n ebulization RxNorm: 234429 Milliliter(s) INH USE 1 VIAL IN NEBULIZE R EVERY FOUR HOURS NEEDED FOR WHEEZING OR SHORTNESS OF BREATH 06/13/2018 01/16/2019 Inactive Generic For:*PROVENTIL 0.83 MG/ML SOLUTN 06/13/2013 2:04:46 PM ropinirole 2 mg tablet RxNorm: 523085 3 Tablet(s) PO QH S DO NOT EXCEED 6MG (3 TABLETS) PER DAY!!!! 06/13/2018 07/31/2018 Inactive atorvastatin 40 mg tablet RxNorm: 217908 Tablet(s) TAKE 1 TABLET BY MOUTH EVERY DAY 05/13/2018 12/18/2018 Inactive Generic For:LIPI TOR 40MG TAB 05/01/2018 8:37:31 AM Sinemet CR 50 mg-200 mg tablet,extended release RxNorm: 8343 41 1 Tablet(s) PO BID 05/08/2018 07/06/2018 Inactive Lidocaine Viscous 2 % mucosal solution RxNorm: 9178549 5 Milliliter(s) PO QID as needed 05/02/2018 08/06/2018 Inactive Diflucan 100 mg tablet RxNorm: 309122 1 Tablet(s) PO QD 05/02/2018 Inactive atorvastatin 40 mg tablet RxNorm: 685431 TAKE 1 TABLET BY MOUTH EVERY DAY 05/01/2018 05/13/2018 Inactive Generic For:LIPITOR 40MG TAB 05/01/2018 8:37:31 AM nystatin 100,000 unit/mL oral suspension RxNorm: 782538 5 Unit(s) PO QID (before meals and at bedtime) 04/24/2018 04/30/2018 Inactive Ventolin HFA 90 mcg/actuation aerosol inhaler RxNorm: 306392 2 Puff(s) INH Q4H as needed one inhaler for home and one inhaler for car 04/23/201812/18 Inactive Mucinex 600 mg tablet, extended release RxNorm: 523682 1 Tablet(s) PO BID for congestion 04/22/2018 05/21/2018 Inactive prednisone 10 mg tablet RxNorm: 905522 Tablet(s) PO as directeds 08/06/2018 Inactive ropinirole 2 mg tablet RxNorm: 299947 3 Tablet(s) PO QH S DO NOT EXCEED 6MG (3 TABLETS) PER DAY!!!! 04/09/2018 05/08/2018 Inactive gabapentin 300 mg capsule RxNorm: 255518 1-2 Capsule(s) PO QHS 02/201804/08/2018 Inactive ropinirole 2 mg tablet RxNorm: 057912 1 Tablet(s) PO QHS 03/28/2018 0 04/08/2018 Inactive gabapentin 300 mg capsule RxNorm: 606366 1-2 Capsule(s) PO QHS 02/2303/29/2018 Inactive gabapentin 300 mg capsule RxNorm: 572947 1-2 Capsule(s) PO QHS 02/2203/13/2018 Inactive gabapentin 300 mg capsule RxNorm: 839039 2 Capsule(s) PO QHS 201703/11/2018 Inactive ropinirole 2 mg tablet RxNorm: 569779 1 Tablet(s) PO QHS 02/28/2018 0 03/28/2018 Inactive ropinirole 2 mg tablet RxNorm: 802011 1 Tablet(s) PO QHS 02/28/2018 0 02/27/2018 Inactive gabapentin 300 mg capsule RxNorm: 461482 1 Capsule(s) PO QHS 201702/27/2018 Inactive pantoprazole 40 mg tablet,delayed release RxNorm: 032930 1 Tablet(s) PO QD forstomach 01/23/2018 05/22/2018 Inactive Voltaren 1 % topical gel RxNorm: 956507 1 Gram(s) TOP QID to ri ght knee 01/23/2018 02/04/2018 Inactive metformin ER 500 mg tablet,extended release 24hr RxNorm: 860 975 2 Tablet(s) PO BID 01/09/2018 12/08/2018 Inactive Requip 1 mg tablet RxNorm: 060822 1 Tablet(s) PO QHS 01/09/201802/27 Inactive prednisone 20 mg tablet RxNorm: 364998 1 Tablet(s) PO T ID for 3 days then 1 po BID for 3 days then one daily for 3 days 01/02/2018 02/03/2018 Inactiv e Levaquin 500 mg tablet RxNorm: 769505 1 Tablet(s) PO QD 01/02/2018 Inactive ProAir HFA 90 mcg/actuation aerosol inhaler RxNorm: 849840 2 Puff(s) INH Q4H as needed 12/28/2017 No Stop Date Active please switch to ventolin if insurance doesn't cover montelukast 10 mg tablet RxNorm: 353364 1 Tablet(s) PO QD 12/28/2017 02/03/2018 Inactive Levaquin 500 mg tablet RxNorm: 850639 1 Tablet(s) PO QD 12/21/2017 Inactive ProAir HFA 90 mcg/actuation aerosol inhaler RxNorm: 983684 2 Puff(s) INH Q4H as needed 12/21/2017 12/27/2017 Inactive please switch to ventolin if insurance doesn't cover doxycycline hyclate 100 mg tablet RxNorm: 163070 1 Tablet(s) PO BID 12/17/2017 12/26/2017 Inactive Levemir FlexTouch U-100 Insulin 100 unit/mL (3 mL) sub cutaneous pen RxNorm: 997367 20 Unit(s) SQ QD with pen needles---Due for labs 12/11/2017 02/03/2018 Inactive Requip 1 mg tablet RxNorm: 375023 1 Tablet(s) PO QHS 12/10/201712/09 Inactive Requip 1 mg tablet RxNorm: 147863 1 Tablet(s) PO QHS 12/10/201701/09 Inactive albuterol sulfate 2.5 mg/3 mL (0.083 %) solution for n ebulization RxNorm: 942398 Milliliter(s) INH USE 1 VIAL IN NEBULIZE R EVERY FOUR HOURS NEEDED FOR WHEEZING OR SHORTNESS OF BREATH 12/05/2017 06/13/2018 Inactive Generic For:*PROVENTIL 0.83 MG/ML SOLUTN 06/13/2013 2:04:46 PM Tudorza Pressair 400 mcg/actuation breath activated RxNorm: 5887468 1 Puff(s) INH BID 12/03/2017 12/10/2017 Inactive Levemir FlexTouch U-100 Insulin 100 unit/mL (3 mL) sub cutaneous pen RxNorm: 765859 10 Unit(s) SQ QD with pen needles---Due for labs 11/16/2017 12/10/2017 Inactive Zofran ODT 4 mg disintegrating tablet RxNorm: 603855 1 Tablet(s) PO Q4H as needed for nausea 10/17/2017 02/04/2018 Inactive Efudex 5 % topical cream RxNorm: 991485 Application TOP QD prn to precancer skin lesions 10/17/2017 02/03/2018 Inactive Sinemet CR 50 mg-200 mg tablet,extended release RxNorm: 8343 41 1 Tablet(s) PO BID 10/17/2017 02/05/2018 Inactive Sinemet CR 50 mg-200 mg tablet,extended release RxNorm: 8343 41 1 Tablet(s) PO QHS 09/25/2017 10/16/2017 Inactive gabapentin 600 mg tablet RxNorm: 972126 1 Tablet(s) PO BID 08/15/20 17 08/14/2017 Inactive gabapentin 600 mg tablet RxNorm: 453351 1 Tablet(s) PO BID 08/15/20 17 12/10/2017 Inactive Novolog U-100 Insulin aspart 100 unit/mL subcutaneous soluti on RxNorm: 635993 10 Unit(s) SQ AC 08/15/2017 02/03/2018 Inactive Novolog 100 unit/mL subcutaneous solution RxNorm: 820358 10 Uni t(s) SQ AC 08/13/2017 08/14/2017 Inactive prednisone 20 mg tablet RxNorm: 779622 2 Tablet(s) PO QD 08/02/2017 1 10/04/2016 Inactive gabapentin 600 mg tablet RxNorm: 284106 Tablet(s) 1 Tab let(s) PO QHS replaces 300mg dose 07/09/2017 08/14/2017 Inactive Breo Ellipta 100 mcg-25 mcg/dose powder for inhalation RxNor m: 5501086 1 Unit Dose INH QD 07/02/2017 08/30/2017 Inactive Tudorza Pressair 400 mcg/actuation breath activated RxNorm: 1247904 1 Puff(s) INH BID 06/18/2017 12/02/2017 Inactive gabapentin 600 mg tablet RxNorm: 566242 1 Tablet(s) PO QHS repl aces 300mg dose 06/14/2017 07/08/2017 Inactive metformin ER 1,000 mg tablet,extended release 24hr RxNorm: 1 559098 1 Tablet(s) PO BID 05/29/2017 01/08/2018 Inactive cyclobenzaprine 5 mg tablet RxNorm: 796769 1 Tablet(s) PO TID 05/2906/07/2017 Inactive metformin ER 1,000 mg tablet,extended release 24hr RxNorm: 8 94071 1 Tablet(s) PO BID 05/25/2017 05/28/2017 Inactive metformin ER 1,000 mg tablet,extended release 24hr RxNorm: 8 93333 1 Tablet(s) PO BID 05/22/2017 05/24/2017 Inactive Amaryl 2 mg tablet RxNorm: 866188 1 Tablet(s) PO BID 05/01/201702/03 Inactive glimepiride 2 mg tablet RxNorm: 609590 1 Tablet(s) PO BID 04/19/2017 02/03/2018 Inactive ferrous sulfate 325 mg (65 mg iron) tablet RxNorm: 704727 1 Tab let(s) PO QHS 04/17/2017 02/03/2018 Inactive Requip 4 mg tablet RxNorm: 982066 1 Tablet(s) PO BID 04/12/201704/11 Inactive Requip 4 mg tablet RxNorm: 180436 1 Tablet(s) PO BID 04/12/201704/15 Inactive Levemir FlexTouch 100 unit/mL (3 mL) subcutaneous insulin pe n RxNorm: 526714 10 Unit(s) SQ QD with pen needles---Due for labs 04/05/2017 11/15/2017 In active Silenor 3 mg tablet RxNorm: 964305 1 Tablet(s) PO QHS 04/05/201709/25 Inactive ropinirole 4 mg tablet RxNorm: 916368 1 Tablet(s) PO QHS 03/29/2017 0 04/01/2017 Inactive ropinirole 4 mg tablet RxNorm: 507763 1 Tablet(s) PO QHS 03/29/2017 0 03/28/2017 Inactive Requip 4 mg tablet RxNorm: 269066 1 Tablet(s) PO QHS 03/28/201704/01 Inactive gabapentin 600 mg tablet RxNorm: 430748 1 Tablet(s) PO QHS repl aces 300mg dose 03/28/2017 04/15/2017 Inactive Requip 4 mg tablet RxNorm: 519859 1 Tablet(s) PO QHS 03/23/201703/27 Inactive gabapentin 600 mg tablet RxNorm: 890516 1 Tablet(s) PO QHS 03/13/20 17 03/12/2017 Inactive gabapentin 600 mg tablet RxNorm: 554381 1 Tablet(s) PO QHS 03/13/20 17 03/27/2017 Inactive gabapentin 300 mg capsule RxNorm: 081039 1 Capsule(s) PO QPM 201603/12/2017 Inactive Generic For:NEURONTIN 300 MG CAPSULE 01/22/2017 10:10:39 AM losartan 100 mg tablet RxNorm: 634712 1 Tablet(s) PO QD replace s lisinopril 02/21/2017 06/17/2018 Inactive gabapentin 300 mg capsule RxNorm: 881798 TAKE 1 CAPSULE BY MOUT H EVERY EVENING 01/22/2017 02/21/2017 Inactive Generic For:NEURONTI N 300 MG CAPSULE 01/22/2017 10:10:39 AM gabapentin 300 mg capsule RxNorm: 605315 1 Capsule(s) PO QPM 201601/21/2017 Inactive Requip 4 mg tablet RxNorm: 470372 1 Tablet(s) PO QHS 12/21/201603/20 Inactive Effient 10 mg tablet RxNorm: 313794 1 Tablet(s) PO QD 12/12/201612/23 Inactive gabapentin 300 mg capsule RxNorm: 741952 1 Capsule(s) PO QPM 201612/03/2016 Inactive gabapentin 300 mg capsule RxNorm: 033085 1 Capsule(s) PO QPM 201612/13/2016 Inactive Requip 4 mg tablet RxNorm: 024521 1 Tablet(s) PO QHS 11/28/201612/21 Inactive atorvastatin 40 mg tablet RxNorm: 472319 Tablet(s) 1 Tablet(s) PO Q D 11/22/2016 08/18/2017 Inactive atorvastatin 40 mg tablet RxNorm: 186338 1 Tablet(s) PO QD 11/23/1911/21/2016 Inactive ropinirole 1 mg tablet RxNorm: 983295 2.5 Tablet(s) PO QPM for legs/sleep 11/14/2016 11/27/2016 Inactive nystatin 100,000 unit/mL oral suspension RxNorm: 908257 5 Unit(s) PO QID swish and spit 10/31/2016 02/03/2018 Inactive fluconazole 100 mg tablet RxNorm: 541990 1 Tablet(s) PO QD 10/31/19 17 11/09/2016 Inactive doxycycline hyclate 100 mg capsule RxNorm: 7513452 1 Capsule(s) PO BID 10/03/2016 10/12/2016 Inactive Levemir FlexTouch 100 unit/mL (3 mL) subcutaneous insulin pe n RxNorm: 014266 10 Unit(s) SQ QD with pen needles 09/18/2016 04/04/2017 Inactive amitriptyline 25 mg tablet RxNorm: 608376 1 Tablet(s) P O QHS as needed for sleep 09/04/2016 10/17/2016 Inactive ropinirole 1 mg tablet RxNorm: 706528 1.5 Tablet(s) PO QPM for legs/sleep 09/04/2016 11/13/2016 Inactive amitriptyline 25 mg tablet RxNorm: 430378 1 Tablet(s) P O QHS as needed for sleep 08/22/2016 09/03/2016 Inactive clopidogrel 75 mg tablet RxNorm: 577171 1 Tablet(s) PO QD 08/10/2016 10/17/2016 Inactive Zoloft 100 mg tablet RxNorm: 970601 2 Tablet(s) PO QHS 08/10/2016 Inactive atorvastatin 40 mg tablet RxNorm: 230723 1 Tablet(s) PO QD 08/10/20 16 10/17/2016 Inactive ropinirole 1 mg tablet RxNorm: 025135 1 Tablet(s) PO QPM for le gs/sleep 08/10/2016 09/03/2016 Inactive losartan 100 mg tablet RxNorm: 098096 1 Tablet(s) PO QD replace s lisinopril 07/20/2016 02/21/2017 Inactive Zofran 4 mg tablet RxNorm: 280323 1 Tablet(s) PO Q4H as needed for nausea 07/06/2016 10/17/2016 Inactive Flagyl 500 mg tablet RxNorm: 322372 1 Tablet(s) PO TID 07/06/2016 Inactive Plavix 75 mg tablet RxNorm: 269939 1 Tablet(s) PO QD 06/08/201607/05 Inactive isosorbide mononitrate ER 30 mg tablet,extended release 24 h r RxNorm: 529149 1 Tablet(s) PO QAM 06/08/2016 08/09/2016 Inactive atorvastatin 40 mg tablet RxNorm: 286095 1 Tablet(s) PO QD 06/08/20 16 08/09/2016 Inactive hydrochlorothiazide 12.5 mg tablet RxNorm: 246825 1 Tablet(s) PO QA M 06/08/2016 07/05/2016 Inactive metformin ER 1,000 mg tablet,extended release 24hr RxNorm: 8 12626 1 Tablet(s) PO BID 06/08/2016 09/05/2016 Inactive metoprolol tartrate 25 mg tablet RxNorm: 686587 1/2 Tablet(s) PO BI D 06/08/2016 08/09/2016 Inactive Zoloft 100 mg tablet RxNorm: 072640 2 Tablet(s) PO QHS 04/03/2016 Inactive metformin ER 1,000 mg tablet,extended release 24hr RxNorm: 8 74955 Tablet(s) 1 Tablet(s) PO QD 03/30/2016 12/18/2018 Inactive Levemir FlexTouch 100 unit/mL (3 mL) subcutaneous insulin pe n RxNorm: 709151 10 Unit(s) SQ QD 03/09/2016 03/08/2016 Inactive Levemir FlexTouch 100 unit/mL (3 mL) subcutaneous insulin pe n RxNorm: 488861 10 Unit(s) SQ QD with pen needles 03/09/2016 03/20/2016 Inactive Mobic 15 mg tablet RxNorm: 650768 1 Tablet(s) PO QD for foot pain 0 02/17/2016 03/17/2016 Inactive Zoloft 100 mg tablet RxNorm: 059293 1 1/2 Tablet(s) PO QHS 01/31/20 16 04/02/2016 Inactive omeprazole 20 mg capsule,delayed release RxNorm: 709363 TAKE 2 CAPSULES BY MOUTH EVERY DAY 01/12/2016 08/09/2016 Inactive Generic For:*CHERYL LOSEC [address] 01/12/2016 8:58:34 AM Zoloft 100 mg tablet RxNorm: 033019 1/2 Tablet(s) PO QH S for 1 week then 1 tablet po q HS 12/30/2015 01/27/2016 Inactive Ventolin HFA 90 mcg/actuation aerosol inhaler RxNorm: 110017 2 Puff(s) INH QID as needed for shortness of breath 12/30/2015 02/03/2018 Inactive [AttnRPh: Saving apply/adjudicate RxGRP:SG20 RxBIN:[id number] RxPCN: ID#:[id number]] metformin ER 1,000 mg tablet,extended release 24hr RxNorm: 8 32391 1 Tablet(s) PO QD 12/20/2015 03/18/2016 Inactive clindamycin 300 mg capsule RxNorm: 870037 1 Capsule(s) PO TID 12/0512/15/2015 Inactive mupirocin 2 % topical cream RxNorm: 921719 TOP to facial lesion s twice daily 11/15/2015 12/15/2015 Inactive cefdinir 300 mg capsule RxNorm: 700773 1 Capsule(s) PO BID 11/15/19 16 11/24/2015 Inactive Medrol (Gui) 4 mg tablets in a dose pack RxNorm: 088993 Tablet(s) PO as directed 10/11/2015 12/15/2015 Inactive albuterol sulfate 2.5 mg/3 mL (0.083 %) solution for n ebulization RxNorm: 432732 INH USE 1 VIAL IN NEBULIZER EVERY FOUR H OURS NEEDED FOR WHEEZING OR SHORTNESS OF BREATH 10/05/2015 10/04/2015 Inactive Generic For:*PRO VENTIL 0.83 MG/ML SOLUTN 06/13/2013 2:04:46 PM doxycycline hyclate 100 mg capsule RxNorm: 6892687 1 Capsule(s) PO BID 10/05/2015 10/14/2015 Inactive albuterol sulfate 2.5 mg/3 mL (0.083 %) solution for n ebulization RxNorm: 736486 Milliliter(s) INH USE 1 VIAL IN NEBULIZE R EVERY FOUR HOURS NEEDED FOR WHEEZING OR SHORTNESS OF BREATH Dx: J44.9 10/05/2015 12/05/2017 Inacti ve Generic For:*PROVENTIL 0.83 MG/ML SOLUTN 06/13/2013 2:04:46 PM albuterol sulfate 2.5 mg/3 mL (0.083 %) solution for n ebulization RxNorm: 758177 3 Milliliter(s) INH USE 1 VIAL IN NEBULI ZER EVERY FOUR HOURS NEEDED FOR WHEEZING OR SHORTNESS OF BREATH 09/06/2015 10/04/2015 Inactive Generic For:*PROVENTIL 0.83 MG/ML SOLUTN 06/13/2013 2:04:46 PM Tradjenta 5 mg tablet RxNorm: 3031803 2 Tablet(s) PO QD 07/22/2015 Inactive albuterol sulfate 2.5 mg/3 mL (0.083 %) solution for n ebulization RxNorm: 017250 3 Milliliter(s) INH USE 1 VIAL IN NEBULI ZER EVERY FOUR HOURS NEEDED FOR WHEEZING OR SHORTNESS OF BREATH 06/29/2015 09/05/2015 Inactive Generic For:*PROVENTIL 0.83 MG/ML SOLUTN 06/13/2013 2:04:46 PM albuterol sulfate 2.5 mg/3 mL (0.083 %) solution for n ebulization RxNorm: 391604 Milliliter(s) INH USE 1 VIAL IN NEBULIZE R EVERY FOUR HOURS NEEDED FOR WHEEZING OR SHORTNESS OF BREATH 06/29/2015 12/04/2017 Inactive Generic For:*PROVENTIL 0.83 MG/ML SOLUTN 06/13/2013 2:04:46 PM doxycycline hyclate 100 mg tablet RxNorm: 360958 1 Tablet(s) PO BID 06/28/2015 07/07/2015 Inactive losartan 100 mg tablet RxNorm: 032987 1 Tablet(s) PO QD -replac es lisinopril 06/14/2015 09/05/2015 Inactive metformin ER 1,000 mg tablet,extended release 24hr RxNorm: 8 20835 1 Tablet(s) PO QD 06/14/2015 09/11/2015 Inactive losartan 100 mg tablet RxNorm: 771086 1 Tablet(s) PO QD -replac es lisinopril 06/14/2015 12/10/2015 Inactive Zocor 20 mg tablet RxNorm: 778668 Tablet(s) Tablet(s) 1 Tablet(s) PO QD -needs lipids labs 06/14/2015 06/14/2015 Inactive atorvastatin 40 mg tablet RxNorm: 747069 1 Tablet(s) PO QD repl aces simvastatin 06/14/2015 12/10/2015 Inactive loratadine 10 mg tablet RxNorm: 140402 Tablet(s) 1 Tablet(s) PO QD for drainage 06/14/2015 06/07/2016 Inactive Celexa 40 mg tablet RxNorm: 156571 1 Tablet(s) PO QD TA KE ONE (1) TABLET BY MOUTH DAILY 06/14/2015 12/29/2015 Inactive Generic For:HARJINDER XA 40 MG TABLET clindamycin 300 mg capsule RxNorm: 332049 2 Capsule(s) PO BID 06/0306/12/2015 Inactive metformin ER 1,000 mg tablet,extended release 24hr RxNorm: 8 81679 1 Tablet(s) PO QD 06/03/2015 06/02/2015 Inactive metformin ER 1,000 mg tablet,extended release 24hr RxNorm: 8 82298 1 Tablet(s) PO QD 06/03/2015 06/13/2015 Inactive mupirocin 2 % topical ointment RxNorm: 867767 TOP apply to open lesion of knee twice daily 06/03/2015 01/30/2016 Inactive Zocor 20 mg tablet RxNorm: 921586 Tablet(s) 1 Tablet(s ) PO QD -needs lipids labs 05/13/2015 06/13/2015 Inactive Celexa 40 mg tablet RxNorm: 579336 1 Tablet(s) PO QD TA KE ONE (1) TABLET BY MOUTH DAILY 05/13/2015 06/13/2015 Inactive Generic For:HARJINDER XA 40 MG TABLET Zocor 20 mg tablet RxNorm: 477748 Tablet(s) 1 Tablet(s ) PO QD -needs lipids labs 02/23/2015 03/24/2015 Inactive loratadine 10 mg tablet RxNorm: 614658 1 Tablet(s) PO QD for dr saenz 12/24/2014 06/13/2015 Inactive Zocor 20 mg tablet RxNorm: 390909 1 Tablet(s) PO QD -needs lipi ds labs 11/17/2014 02/23/2015 Inactive Celexa 40 mg tablet RxNorm: 320459 1 Tablet(s) PO QD 1 Tablet(s) PO QD 1 Tablet(s) PO QD Generic OKAY 11/11/2014 05/13/2015 Inactive Zocor 20 mg tablet RxNorm: 559995 1 Tablet(s) PO QD -needs lipi ds labs 11/11/2014 11/16/2014 Inactive omeprazole 20 mg capsule,delayed release RxNorm: 369495 2 Capsule(s) PO QD TAKE 2 CAPSULES BY MOUTH DAILY 10/27/2014 04/24/2015 Inactive Generi c For:*PRILOSEC 20 MG CAPSULE trazodone 50 mg tablet RxNorm: 464170 1 1/2 Tablet(s) PO QHS 201412/29/2015 Inactive losartan 100 mg tablet RxNorm: 840759 1 Tablet(s) PO QD -replac es lisinopril 10/26/2014 04/23/2015 Inactive Levaquin 500 mg tablet RxNorm: 719565 1 Tablet(s) PO QD 10/08/2014 Inactive Levaquin 500 mg tablet RxNorm: 370039 1 Tablet(s) PO QD 10/08/2014 Inactive Diflucan 100 mg tablet RxNorm: 660306 1 Tablet(s) PO QD 10/06/2014 Inactive DuoNeb 0.5 mg-3 mg(2.5 mg base)/3 mL solution for nebulizati on RxNorm: 1769449 3 Milliliter(s) INH QID 09/23/2014 08/09/2016 Inactive Ventolin HFA 90 mcg/actuation aerosol inhaler RxNorm: 329558 2 Puff(s) INH QID as needed for shortness of breath 09/21/2014 12/29/2015 Inactive [AttnRPh: Saving apply/adjudicate RxGRP:SG20 RxBIN:[id number] RxPCN: ID#:[id number]] promethazine-codeine 6.25 mg-10 mg/5 mL syrup RxNorm: 608671 1 Teaspoon(s) PO QHS as needed for cough 09/08/2014 09/20/2014 Inactive prednisone 20 mg tablet RxNorm: 573201 1 Tablet(s) PO BID 09/02/2014 09/08/2014 Inactive promethazine-codeine 6.25 mg-10 mg/5 mL syrup RxNorm: 198138 1 Teaspoon(s) PO Q4H 09/02/2014 09/20/2014 Inactive doxycycline monohydrate 100 mg capsule RxNorm: 969985 1 Capsule (s) PO BID 09/02/2014 09/07/2014 Inactive Tessalon Perles 100 mg capsule RxNorm: 162165 1 Capsule (s) PO TID as needed for cough 08/31/2014 09/20/2014 Inactive Actos 15 mg tablet RxNorm: 192486 1 Tablet(s) PO QAM 1 Tablet(s ) PO QAM 08/26/2014 09/20/2014 Inactive loratadine 10 mg tablet RxNorm: 513991 1 Tablet(s) PO QD for dr saenz 08/26/2014 10/26/2014 Inactive Zithromax 500 mg tablet RxNorm: 153423 1 Tablet(s) PO QD 08/25/2014 1 11/01/2013 Inactive Zithromax 500 mg tablet RxNorm: 652174 1 Tablet(s) PO QD 08/25/2014 1 10/25/2013 Inactive Trazadone 75mg Tablet RxNorm: 1 Tablet(s) PO QHS 08/10/20142018 Inactive Zocor 20 mg tablet RxNorm: 516225 1 Tablet(s) PO QD 08/10/20142014 Inactive Trazadone 75mg Tablet RxNorm: 1 Tablet(s) PO QHS as need ed for sleep 08/10/2014 10/08/2014 Inactive Celexa 40 mg tablet RxNorm: 592541 1 Tablet(s) PO QD 1 Tablet(s) PO QD 1 Tablet(s) PO QD Generic OKAY 06/09/2014 10/06/2014 Inactive Actos 15 mg tablet RxNorm: 148647 1 Tablet(s) PO QAM 05/12/201408/26 Inactive lisinopril 20 mg tablet RxNorm: 542688 1 Tablet(s) PO QD 05/12/2014 0 10/26/2014 Inactive TAKE ONE TABLET BY MOUTH EVERY DAY;Gener ic For:*PRINIVIL 20 MG TABLET [AttnRPh: Saving apply/adjudicate RxGRP:SG20 RxBIN:[id number] RxPCN: ID#:[id number]] hydrocodone 5 mg-acetaminophen 325 mg tablet RxNorm: 482560 1 Tablet(s) PO TID as needed for pain for severe pain 04/30/2014 08/09/2014 Inactive hydrocodone 5 mg-acetaminophen 325 mg tablet RxNorm: 673407 1 Tablet(s) PO TID as needed for pain for severe pain 04/17/2014 04/29/2014 Inactive doxycycline hyclate 100 mg capsule RxNorm: 042290 1 Capsule(s) PO BID 03/05/2014 03/04/2014 Inactive doxycycline hyclate 100 mg capsule RxNorm: 346367 1 Capsule(s) PO BID 03/05/2014 03/14/2014 Inactive albuterol sulfate 2.5 mg/3 mL (0.083 %) solution for n ebulization RxNorm: 506029 Milliliter(s) INH USE 1 VIAL IN NEBULIZE R EVERY FOUR HOURS NEEDED FOR WHEEZING OR SHORTNESS OF BREATH 03/02/2014 06/29/2015 Inactive Generic For:*PROVENTIL 0.83 MG/ML SOLUTN 06/13/2013 2:04:46 PM Celexa 40 mg tablet RxNorm: 312052 1 Tablet(s) PO QD 1 Tablet(s) PO QD replaces lexapro. Generic OKAY 01/13/2014 06/09/2014 Inactive Actos 15 mg tablet RxNorm: 453019 1 Tablet(s) PO QAM 01/07/201405/12 Inactive lisinopril 20 mg tablet RxNorm: 574772 1 Tablet(s) PO QD 12/08/2013 0 05/12/2014 Inactive TAKE ONE TABLET BY MOUTH EVERY DAY;Gener ic For:*PRINIVIL 20 MG TABLET cefdinir 300 mg capsule RxNorm: 764231 2 Capsule(s) PO QD 11/10/2013 08/09/2014 Inactive cefdinir 300 mg capsule RxNorm: 224597 2 Capsule(s) PO QD 10/09/2013 10/15/2013 Inactive Actos 15 mg tablet RxNorm: 329433 1 Tablet(s) PO QAM 10/09/201301/06 Inactive doxycycline hyclate 100 mg capsule RxNorm: 3206884 1 Capsule(s) PO Q12H 09/18/2013 09/27/2013 Inactive omeprazole 20 mg capsule,delayed release RxNorm: 140823 2 Capsule(s) PO QD TAKE 2 CAPSULES BY MOUTH DAILY 09/03/2013 03/01/2014 Inactive Generi c For:*PRILOSEC [address] Celexa 40 mg tablet RxNorm: 760461 1 Tablet(s) PO QD re places lexapro. Generic OKAY 09/03/2013 01/13/2014 Inactive Symbicort 160 mcg-4.5 mcg/actuation HFA aerosol inhaler RxNo rm: 9644886 2 Puff(s) INH BID 08/13/2013 03/23/2014 Inactive metformin 1,000 mg tablet RxNorm: 330920 1 Tablet(s) PO BID 013 08/12/2013 Inactive TAKE ONE TABLET BY MOUTH TWI CE DAILY;Generic For:GLUCOPHAGE 1,000 MG TABLET 08/27/12 Thank you Actos 15 mg tablet RxNorm: 343778 1 Tablet(s) PO QAM 06/23/201310/09 Inactive lisinopril 20 mg tablet RxNorm: 525909 1 Tablet(s) PO QD 06/23/2013 0 12/08/2013 Inactive TAKE ONE TABLET BY MOUTH EVERY DAY;Gener ic For:*PRINIVIL 20 MG TABLET albuterol sulfate 2.5 mg/3 mL (0.083 %) solution for n ebulization RxNorm: 617733 Solution for Nebulization INH USE 1 VIAL IN NEBULIZER EVERY FOUR HOURS NEEDED FOR WHEEZING OR SHORTNESS OF BREATH 06/16/2013 03/01/2014 Inactive Generic For:*PROVENTIL 0.83 MG/ML SOLUTN 06/13/2013 2:04:46 PM prednisone 10 mg tablet RxNorm: 473538 1 Tablet(s) PO BID 04/09/2013 04/13/2013 Inactive AndroGel 1.25 gram/actuation (1%) Transdermal Gel Pump RxNorm: 2 51013 TD 04/09/2013 08/09/2014 Inactive APPLY 4 PUMPS OF GEL AT BEDTIME DIRECTED;WC (Appended: Controlled substance eRx refill - RxReferenceNumber: [id number]) azithromycin 250 mg tablet RxNorm: 649297 2 Tablet(s) PO QD 013 04/16/2013 Inactive Amaryl 2 mg tablet RxNorm: 845475 1 Tablet(s) PO BID N eeds appt in 1 month (around March 21) 02/18/2013 08/12/2013 Inactive Amaryl 2 mg tablet RxNorm: 524281 1 Tablet(s) PO BID 02/18/201302/17 Inactive metformin 1,000 mg tablet RxNorm: 504421 1 Tablet(s) PO BID 013 07/27/2013 Inactive TAKE ONE TABLET BY MOUTH TWI CE DAILY;Generic For:GLUCOPHAGE 1,000 MG TABLET 08/27/12 Thank you Actos 15 mg tablet RxNorm: 887687 1 Tablet(s) PO QAM 02/04/201306/03 Inactive albuterol sulfate 2.5 mg/3 mL (0.083 %) Neb Solution RxNorm: 791942 1 Unit Dose INH Q4H prn wheezing or shortness of breath 01/30/2013 06/15/2013 Inac tive Medrol (Gui) 4 mg tablets in a dose pack RxNorm: 489677 Tablet(s) PO as directed 01/20/2013 07/15/2013 Inactive cefdinir 300 mg capsule RxNorm: 836137 1 Capsule(s) PO BID anti biotic 01/20/2013 01/29/2013 Inactive lisinopril 20 mg tablet RxNorm: 419657 Tablet(s) PO 01/13/20132012 Inactive TAKE ONE TABLET BY MOUTH EVERY DAY;Gener ic For:*PRINIVIL 20 MG TABLET citalopram 40 mg tablet RxNorm: 295836 Tablet(s) PO 01/13/20132013 Inactive TAKE ONE (1) TABLET BY MOUTH DAILY;Gener ic For:CELEXA 40 MG TABLET omeprazole 20 mg capsule,delayed release RxNorm: 038682 Capsule(s) PO TAKE 2 CAPSULES BY MOUTH DAILY 11/15/2012 09/03/2013 Inactive Generic For:*PRILOSEC [address] amoxicillin 875 mg tablet RxNorm: 712909 1 Tablet(s) PO BID 013 10/28/2012 Inactive Actos 30 mg tablet RxNorm: 364949 1 Tablet(s) PO QD 09/23/20122011 Inactive Actos 15 mg tablet RxNorm: 741334 1 Tablet(s) PO QAM 09/23/201209/22 Inactive Actos 15 mg tablet RxNorm: 160969 1 Tablet(s) PO QAM 09/23/201202/04 Inactive prednisone 20 mg tablet RxNorm: 657671 1 Tablet(s) PO BID 08/28/2012 09/03/2012 Inactive doxycycline hyclate 100 mg tablet RxNorm: 6592903 1 Tablet(s) PO BI D 08/28/2012 09/06/2012 Inactive metformin 1,000 mg tablet RxNorm: 333691 Tablet(s) PO 08/27/201201/22 Inactive TAKE ONE TABLET BY MOUTH TWICE DAILY;Gen joshua For:GLUCOPHAGE 1,000 MG TABLET 08/27/12 Thank you citalopram 40 mg tablet RxNorm: 150715 Tablet(s) PO 07/30/20122012 Inactive TAKE ONE (1) TABLET BY MOUTH DAILY;Gener ic For:CELEXA 40 MG TABLET lisinopril 20 mg tablet RxNorm: 390045 Tablet(s) PO 07/30/20122012 Inactive TAKE ONE TABLET BY MOUTH EVERY DAY;Gener ic For:*PRINIVIL 20 MG TABLET AndroGel 1.25 gram/actuation (1%) Transdermal Gel Pump RxNor m: [id number] Gel in Metered-Dose Pump TD 07/09/2012 04/08/2013 Inactive APPLY 4 PUM PS OF GEL AT BEDTIME DIRECTED;WC (Appended: Controlled substance eRx refill - RxReferenceNumber: [id number]) citalopram 40 mg tablet RxNorm: 949971 Tablet(s) PO 07/01/20122011 Inactive TAKE ONE (1) TABLET BY MOUTH DAILY;Gener ic For:CELEXA 40 MG TABLET metformin 1,000 mg tablet RxNorm: 187780 1 Tablet(s) PO BID 012 08/25/2012 Inactive TAKE 1 TABLET BY MOUTH TWICE DAILY;Generic For:GLUCOPHAGE 1,000 MG TABLET meclizine 25 mg Tab RxNorm: 156461 1 Tablet(s) PO QID prn dizziness 05/09/2012 05/18/2012 Inactive lisinopril 20 mg tablet RxNorm: 869565 Tablet(s) PO QD 04/22/2012 Inactive TAKE ONE (1) TABLET BY MOUTH DAILY;Gener ic For:*PRINIVIL 20 MG TABLET metformin 1,000 mg tablet RxNorm: 387079 Tablet(s) PO 03/19/201212/2011 Inactive TAKE 1 TABLET BY MOUTH TWICE DAILY;Gener ic For:GLUCOPHAGE 1,000 MG TABLET cefdinir 300 mg Cap RxNorm: 338109 1 Capsule(s) PO BID 11/28/2011 Inactive cefdinir 300 mg Cap RxNorm: 679857 1 Capsule(s) PO BID 11/01/2011 Inactive citalopram 40 mg tablet RxNorm: 639371 Tablet(s) PO 10/30/20112011 Inactive TAKE ONE (1) TABLET BY MOUTH DAILY;Gener ic For:CELEXA 40 MG TABLET cefdinir 300 mg Cap RxNorm: 048762 1 Capsule(s) PO BID 10/02/2011 Inactive metformin 1,000 mg Tab RxNorm: 065399 1 Tablet(s) PO BID 09/28/2011 0 01/25/2012 Inactive citalopram 40 mg Tab RxNorm: 818834 1 Tablet(s) PO QD 09/28/201111/2011 Inactive omeprazole 20 mg capsule,delayed release RxNorm: 882841 2 Capsu le(s) PO QD 09/28/2011 03/25/2012 Inactive lisinopril 20 mg Tab RxNorm: 279173 Tablet(s) PO 08/21/2011 04/21/2012 Inactive TAKE ONE (1) TABLET BY MOUTH DAILY;Generic For:*PRINIVIL 20 MG TABLET AndroGel 1.25 gram/actuation (1%) Transdermal Gel Pump RxNor m: [id number] Gel in Metered-dose Pump TD 08/21/2011 07/09/2012 Inactive APPLY 4 PUM PS OF GEL AT BEDTIME DIRECTED (Appended: Controlled substance eRx refill - RxReferenceNumber: [id number]) Lantus Solostar 100 unit/mL (3 mL) Sub-Q Insulin Pen RxNorm: 874114 30 Unit(s) SQ QD 06/20/2011 05/08/2012 Inactive Lantus Solostar 100 unit/mL (3 mL) Sub-Q Insulin Pen RxNorm: 568815 30 Unit(s) SQ QD 06/19/2011 06/19/2011 Inactive metformin 1,000 mg Tab RxNorm: 719987 1 Tablet(s) PO BID 05/12/2011 1 11/09/2010 Inactive citalopram 40 mg Tab RxNorm: 011110 1 Tablet(s) PO QD 03/06/201105/2011 Inactive metformin 1,000 mg Tab RxNorm: 023744 1 Tablet(s) PO BID 12/27/2010 0 04/25/2011 Inactive lisinopril 20 mg Tab RxNorm: 347564 Tablet(s) PO TAKE 1 TABLET BY MOUTH EVERY DAY;Generic For:*PRINIVIL 20 MG TABLET 12/26/2010 08/20/2011 Inactive Ceftin 500 mg Tab RxNorm: 354430 1 Tablet(s) PO BID 12/19/20102010 Inactive omeprazole 20 mg Cap, Delayed Release RxNorm: 650769 2 Capsule( s) PO QD 09/13/2010 03/11/2011 Inactive Byetta 10 mcg/0.04 mL per dose Sub-Q Pen Injector RxNorm: 84 7913 1 Unit Dose SQ BID 09/07/2010 10/06/2010 Inactive Celexa 40 mg tablet RxNorm: 788338 1 Tablet(s) PO QD re places lexapro. Generic OKAY 08/09/2010 02/04/2011 Inactive Actos 30 mg Tab RxNorm: 109591 1 Tablet(s) PO QD 08/09/2010 04/02/2011 Inactive lisinopril 20 mg Tab RxNorm: 412306 1 Tablet(s) PO QD 08/09/201011/22 Inactive metformin 1,000 mg Tab RxNorm: 111168 1 Tablet(s) PO BID 08/09/2010 0 12/06/2010 Inactive Metformin 1,000 mg Tab RxNorm: 953062 1 Tablet(s) PO BID 04/26/2010 0 04/25/2010 Inactive metformin 1,000 mg Tab RxNorm: 345176 1 Tablet(s) PO BID 04/26/2010 1 Inactive Lomotil 2.5 mg-0.025 mg Tab RxNorm: 9902449 1 Tablet(s) PO TID 1-2 TABS THREE TIMES DAILY 04/05/2010 04/07/2010 Inactive Mupirocin 2 % Topical Cream RxNorm: 307259 TOP BID 04/05/201003/25 Inactive lisinopril 20 mg Tab RxNorm: 636068 1 Tablet(s) PO QD 03/29/201010/2009 Inactive Actos 30 mg Tab RxNorm: 546213 1 Tablet(s) PO QD 03/29/2010 07/26/2010 Inactive Lisinopril 20 mg Tab RxNorm: 096799 1 Tablet(s) PO QD 02/27/201001/2010 Inactive Actos 30 mg Tab RxNorm: 080269 1 Tablet(s) PO QD 02/14/2010 03/28/2010 Inactive Celexa 40 mg Tab RxNorm: 433275 1 Tablet(s) PO QD replaces lexapro 01/13/2010 07/11/2010 Inactive Cyclobenzaprine 10 mg Tab RxNorm: 764291 1 Tablet(s) PO TID prn spasm 12/23/2009 01/21/2010 Inactive Cyclobenzaprine 10 mg Tab RxNorm: 703912 1 Tablet(s) PO TID 010 12/22/2009 Inactive Hydrocodone-Acetaminophen 7.5 mg-750 mg Tab RxNorm: 762185 1 Ta blet(s) PO Q4-6H 12/23/2009 12/22/2009 Inactive aspirin 81 mg tablet RxNorm: 964672 1 Tablet(s) PO QD No Start Date Active isosorbide mononitrate ER 60 mg tablet,extended release 24 h r RxNorm: 021568 1 Tablet(s) PO QD No Start Date Active amlodipine 5 mg tablet RxNorm: 130487 1 Tablet(s) PO QD No Start Date Active Vitamin D3 1,000 unit tablet RxNorm: 606663 3 Tablet(s) PO QD No St art Date 10/26/2014 Inactive Lexapro 20 mg Tab RxNorm: 298774 1 Tablet(s) PO QD No Start Date 12/24 Inactive loperamide 2 mg tablet RxNorm: 568287 Tablet(s) PO PRN No Start Date 06/07/2016 Inactive Levemir FlexTouch U-100 Insulin 100 unit/mL (3 mL) sub cutaneous pen RxNorm: 936770 22 Unit(s) SQ QD No Start Date 12/21/2019 Inactive Janumet 50 mg-1,000 mg Tab RxNorm: 763389 1 Tablet(s) PO BID No Sta rt Date 01/12/2010 Inactive Levemir U-100 Insulin 100 unit/mL subcutaneous solution RxNo rm: 502698 10 Unit(s) SQ QHS No Start Date 12/08/2018 Inactive Medrol (Gui) 4 mg tablets in a dose pack RxNorm: 366254 Tablet(s) PO Use as directed No Start Date 12/22/2018 Inactive aspirin 325 mg tablet RxNorm: 086715 1 Tablet(s) PO QD No Start Date 08/09/2016 Inactive Efudex 5 % Topical Cream RxNorm: 657027 Application TOP QD prn fto skin lesion No Start Date 08/12/2013 Inactive nitroglycerin 0.4 mg sublingual tablet RxNorm: 189158 Tablet(s) SL as needed No Start Date 12/18/2018 Inactive levofloxacin 500 mg tablet RxNorm: 452852 1 Tablet(s) PO QD No Star t Date 08/06/2018 Inactive ferrous sulfate 325 mg (65 mg iron) tablet RxNorm: 399008 1 Tab let(s) PO QHS No Start Date 04/16/2017 Inactive fluorouracil 5 % topical cream RxNorm: 191051 1 TOP No Start James e 08/06/2018 Inactive Vitamin D3 1,000 unit capsule RxNorm: 223346 1 Capsule(s) PO QD No Start Date 02/03/2018 Inactive Hydrocodone-Acetaminophen 7.5 mg-750 mg Tab RxNorm: 955367 1 Ta blet(s) PO PRN No Start Date 08/09/2014 Inactive pantoprazole 40 mg tablet,delayed release RxNorm: 608830 1 Tabl et(s) PO QD No Start Date 01/22/2018 Inactive omeprazole 20 mg Cap, Delayed Release RxNorm: 650162 2 Capsule( s) PO QD No Start Date 09/12/2010 Inactive DuoNeb 0.5 mg-3 mg(2.5 mg base)/3 mL solution for nebulizati on RxNorm: 6209328 INH Q4H as needed No Start Date 10/22/2018 Inactive Lyrica 75 mg capsule RxNorm: 389961 2 Capsule(s) PO QHS No Start Da te 03/09/2019 Inactive isosorbide mononitrate ER 30 mg tablet,extended release 24 h r RxNorm: 077430 1 Tablet(s) PO QD No Start Date 12/08/2018 Inactive Tradjenta 5 mg tablet RxNorm: 0773052 1 Tablet(s) PO QD No Start Da te 08/09/2016 Inactive Tudorza Pressair 400 mcg/actuation breath activated RxNorm: 6703084 1 Puff(s) INH BID No Start Date 06/17/2017 Inactive Lantus Solostar 100 unit/mL (3 mL) Sub-Q Insulin Pen RxNorm: 818834 30 Unit(s) SQ QD No Start Date 06/18/2011 Inactive Requip 4 mg tablet RxNorm: 591931 1 Tablet(s) PO BID No Start Date Inactive Symbicort 160 mcg-4.5 mcg/actuation HFA aerosol inhaler RxNo rm: 7582650 2 Puff(s) INH BID No Start Date 07/11/2018 Inactive atorvastatin 40 mg tablet RxNorm: 058458 1 Tablet(s) PO QD No Start Date 12/18/2018 Inactive tramadol 50 mg tablet RxNorm: 458008 1 Tablet(s) PO TID as needed for pain (take alone with two extra strength tylenol) No Start Date 01/16/2019 Inactive Symbicort 160 mcg-4.5 mcg/actuation HFA aerosol inhaler RxNo rm: 8877223 2 Puff(s) INH BID No Start Date 08/12/2013 Inactive Vitamin D3 5,000 unit tablet RxNorm: 476488 1 Tablet(s) PO QD No St art Date 05/08/2019 Inactive albuterol sulfate 2.5 mg/3 mL (0.083 %) Neb Solution RxNorm: 944154 1 Unit Dose INH Q4H prn wheezing or shortness of breath No Start Date 01/29/2013 Inac tive Ranexa 500 mg tablet,extended release RxNorm: 500089 1 Tablet(s ) PO BID No Start Date 02/03/2018 Inactive Advair Diskus 500 mcg-50 mcg/dose powder for inhalation RxNo rm: 9676802 1 Puff(s) INH BID No Start Date 08/09/2016 Inactive clopidogrel 75 mg tablet RxNorm: 432351 1 Tablet(s) PO QD No Start Date 05/01/2018 Inactive metformin 1,000 mg Tab RxNorm: 303446 1 Tablet(s) PO BID No Start D ate 08/12/2013 Inactive Silenor 3 mg tablet RxNorm: 212023 1 Tablet(s) PO QHS No Start Date 0 04/04/2017 Inactive Medrol (Gui) 4 mg tablets in a dose pack RxNorm: 730639 Tablet(s) PO as directed No Start Date 01/19/2013 Inactive Requip 4 mg tablet RxNorm: 452627 1 Tablet(s) PO BID No Start Date Inactive clopidogrel 75 mg tablet RxNorm: 215259 1 Tablet(s) PO QD No Start Date 02/03/2018 Inactive Tradjenta 5 mg tablet RxNorm: 9566901 1 Tablet(s) PO QD No Start Da te 02/03/2018 Inactive ProAir HFA 90 mcg/Actuation Aerosol Inhaler RxNorm: 001141 2 Pu ff(s) INH PRN No Start Date 07/09/2012 Inactive Tessalon Perles 100 mg capsule RxNorm: 475532 1 Capsule (s) PO TID as needed for cough No Start Date 08/30/2014 Inactive ferrous sulfate 325 mg (65 mg iron) tablet RxNorm: 838153 1 Tab let(s) PO QD No Start Date 05/08/2019 Inactive pioglitazone 15 mg tablet RxNorm: 403708 1 Tablet(s) PO QD No Start Date 09/20/2014 Inactive Lexapro Oral RxNorm: Oral No Start Date 12/13/2009 Inactive Breo Ellipta 100 mcg-25 mcg/dose powder for inhalation RxNor m: 7991112 1 Puff(s) INH BID No Start Date 05/31/2015 Inactive Tylenol Extra Strength 500 mg tablet RxNorm: 914366 2 T ablet(s) PO QHS along with ropironole No Start Date 12/18/2018 Inactive tramadol 50 mg tablet RxNorm: 692551 1 Tablet(s) PO QID as need ed for pain No Start Date 12/24/2018 Inactive cyclobenzaprine 10 mg Tab RxNorm: 569235 Oral No Start Date 12/22 Inactive Levemir FlexTouch 100 unit/mL (3 mL) subcutaneous insulin pe n RxNorm: 802135 10 Unit(s) SQ QD No Start Date 03/08/2016 Inactive amlodipine 5 mg tablet RxNorm: 773917 1 Tablet(s) PO QD No Start Da te 08/09/2016 Inactive Novolog 100 unit/mL subcutaneous solution RxNorm: 296268 10 Uni t(s) SQ AC No Start Date 08/12/2017 Inactive Levemir FlexTouch 100 unit/mL (3 mL) subcutaneous insulin pe n RxNorm: 854588 25 Unit(s) SQ QPM No Start Date 08/06/2018 Inactive Farxiga 5 mg tablet RxNorm: 1137434 1 Tablet(s) PO QD No Start Date 0 10/05/2014 Inactive DuoNeb 0.5 mg-3 mg(2.5 mg base)/3 mL solution for nebulizati on RxNorm: 3784018 inhalation No Start Date 09/23/2014 Inactive Doxycycline 100 mg Cap RxNorm: 091805 1 Capsule(s) PO BID No Start Date 12/18/2010 Inactive Vitamin B12 1000mcg Tablet RxNorm: 1 Tablet(s) PO QD No Start Date 02/03/2018 Inactive Hydrocodone-Acetaminophen 7.5 mg-750 mg Tab RxNorm: 454985 1 Ta blet(s) PO Q6-8H No Start Date 12/22/2009 Inactive Xigduo XR 5 mg-1,000 mg tablet,extended release RxNorm: 1593 833 1 Tablet(s) PO QD No Start Date 05/31/2015 Inactive cyanocobalamin (vit B-12) 1,000 mcg/mL injection solution Rx Norm: 142479 1 injection weekly for 4 weeks 1 Milliliter(s) Inj No Start Date 05/08/2019 Inactive AndroGel 1.25 g/Actuation (1%) Transdermal Gel Pump RxNorm: 5155142 TD Apply 4pumps daily No Start Date 08/21/2011 Inactive Actoplus MET 15 mg-850 mg Tab RxNorm: 400031 1 Tablet(s) PO BID No Start Date 12/18/2010 Inactive Amaryl 2 mg tablet RxNorm: 352619 1 Tablet(s) PO BID No Start Date Inactive Levemir FlexTouch 100 unit/mL (3 mL) subcutaneous insulin pe n RxNorm: 537531 20 Unit(s) SQ QD No Start Date 06/12/2016 Inactive Symbicort 160 mcg-4.5 mcg/actuation HFA aerosol inhaler RxNo rm: 7836324 2 Puff(s) INH BID No Start Date 02/03/2018 Inactive Symbicort 160 mcg-4.5 mcg/Actuation Inhalation HFA Aer osol Inhaler RxNorm: 0128342 2 INH BID No Start Date 12/18/2010 Inactive Farxiga 5 mg tablet RxNorm: 9804170 1 Tablet(s) PO QD No Start Date 0 03/01/2015 Inactive magnesium oxide 400 mg (241.3 mg magnesium) tablet RxNorm: 1 83828 1 Tablet(s) PO QHS No Start Date 05/08/2019 Inactive Tradjenta 5 mg tablet RxNorm: 0004740 2 Tablet(s) PO QD No Start Da te 07/21/2015 Inactive Levemir FlexTouch U-100 Insulin 100 unit/mL (3 mL) sub cutaneous pen RxNorm: 325175 40 Unit(s) SQ QD No Start Date 08/06/2018 Inactive Sinemet CR 50 mg-200 mg tablet,extended release RxNorm: 8343 41 1 Tablet(s) PO QHS No Start Date 09/24/2017 Inactive metoprolol tartrate 25 mg tablet RxNorm: 610690 1/2 Tablet(s) P O BID No Start Date 02/03/2018 Inactive Requip 4 mg tablet RxNorm: 666779 1 Tablet(s) PO QHS No Start Date Inactive Ventolin HFA 90 mcg/actuation aerosol inhaler RxNorm: 295213 2 Puff(s) INH Q4H as needed No Start Date 04/22/2018 Inactive B12 5,000 mcg-100 mcg sublingual lozenge RxNorm: 197398 IM as d irected No Start Date 05/08/2019 Inactive ropinirole 1 mg tablet RxNorm: 227036 1 Tablet(s) PO QHS No Start D ate 08/06/2018 Inactive Percocet 5 mg-325 mg tablet RxNorm: 0239802 1 Tablet(s) PO Q4H as needed for pain (Dr Rizzo) No Start Date 10/22/2018 Inactive hydrocodone 5 mg-acetaminophen 325 mg tablet RxNorm: 851203 1 Tablet(s) PO TID as needed for pain for severe pain No Start Date 04/16/2014 Inactive scopolamine 1.5 mg 72 hr Transderm Patch RxNorm: 766811 Application TD Q72H for dizziness No Start Date 08/12/2013 Inactive ipratropium-albuterol 0.5 mg-3 mg(2.5 mg base)/3 mL ne bulization soln RxNorm: 3951191 1 Unit Dose INH Q4H No Start Date 01/16/2019 Inactive Medication Administered No Medication Administered data Immunizations Vaccine Codes Date Status Influenza CVX: 135 08/07/2019 Complete Pneumococcal CVX: 33 07/24/2017 Complete Influenza CVX: 135 06/13/2016 Complete Pneumococcal CVX: 133 06/13/2016 Complete Influenza CVX: 141 07/10/2012 Pneumovax Unknown 07/10/2012 Results Observation Observation Code Item Item Code Result Date S ervice Location COMPLETE BLOOD COUNT [id number] WBC 5.5 10e9/L 06/17/20 19 Unknown COMPLETE BLOOD COUNT [id number] RBC 3.92 10e12/L 2018 Unknown COMPLETE BLOOD COUNT [id number] HEMOGLOBIN 10.9 g/dL 06/17/20 19 Unknown COMPLETE BLOOD COUNT 1141246 HEMATOCRIT 34.8 % 06/17/20 19 Unknown COMPLETE BLOOD COUNT 8683175 MCV 88.8 fL 9 Unknown COMPLETE BLOOD COUNT 8729583 MCH 27.8 pg 9 Unknown COMPLETE BLOOD COUNT 7684791 MCHC 31.3 g/dL 9 Unknown COMPLETE BLOOD COUNT 3676355 PLATELET COUNT 239 10e9/L Unknown COMPLETE BLOOD COUNT 7674174 Mean Plt Volume 10.0 fL Unknown COMPLETE BLOOD COUNT 8194967 Neut Auto 68.0 % 9 Unknown COMPLETE BLOOD COUNT 6613003 Lymph Auto 14.8 % 06/17/20 19 Unknown COMPLETE BLOOD COUNT 3527577 [place] Auto 13.1 % 9 Unknown COMPLETE BLOOD COUNT 0433923 RDW 14.7 % 9 Unknown COMPLETE BLOOD COUNT 2840317 Eos Auto 3.6 % 9 Unknown COMPLETE BLOOD COUNT 3330923 Baso Auto 0.5 % 9 Unknown COMPLETE BLOOD COUNT 8494675 Neutrophil Abs 3.74 10e9/L Unknown COMPLETE BLOOD COUNT 2638006 Lymphocyte Abs 0.81 10e9/L Unknown COMPLETE BLOOD COUNT 3745570 Monocyte Abs 0.72 10e9/L 05/26 Unknown COMPLETE BLOOD COUNT 1882642 Eosinophil Abs 0.20 10e9/L Unknown COMPLETE BLOOD COUNT 2782054 RDW-SD 46.4 fL 9 Unknown COMPLETE BLOOD COUNT 2390534 Basophil Abs 0.03 10e9/L 05/26 Unknown IRON 87693 Iron 36 ug/dL 06/17/2019 Unknown VITAMIN B 12 74107 VITAMIN B12 540 pg/mL 06/17/2019 Unkn own GFR CALC 4559871 GFR Non Afr Amr 59 mL/min 06/17/2019 Unk nown GFR CALC 0754885 GFR Afr Amr >60 mL/min 06/17/2019 Unknow n ERYTHROCYTE SEDIMENTATION RATE 29468 Sed Rate 34 mm/hr 06/17/2019 Unknown THYROID STIMULATING HORMONE 99449 TSH 2.217 uIU/mL 06/17/2019 Unknown COMPREHENSIVE METABOLIC 85216 AST 12 U/L 2018 Unknown COMPREHENSIVE METABOLIC 90628 ALT 11 U/L 2018 Unknown COMPREHENSIVE METABOLIC 04256 BUN 17 mg/dL 2018 Unknown COMPREHENSIVE METABOLIC 72248 ALBUMIN 3.9 g/dL 2018 Unknown COMPREHENSIVE METABOLIC 98888 CHLORIDE 103 mmol/L 06/17 Unknown COMPREHENSIVE METABOLIC 46267 Bili Total 0.4 mg/dL 06/17 Unknown COMPREHENSIVE METABOLIC 12896 ALK PHOS 51 U/L 2018 Unknown COMPREHENSIVE METABOLIC 76226 SODIUM 140 mmol/L 06/17 Unknown COMPREHENSIVE METABOLIC 05118 CREATININE 1.20 mg/dL 05/26 Unknown COMPREHENSIVE METABOLIC 05716 CALCIUM 8.9 mg/dL 2018 Unknown COMPREHENSIVE METABOLIC 61611 POTASSIUM 4.5 mmol/L 06/17 Unknown COMPREHENSIVE METABOLIC 62576 Total Protein 6.1 g/dL Unknown COMPREHENSIVE METABOLIC 46585 Glucose 108 mg/dL 2018 Unknown COMPREHENSIVE METABOLIC 49279 Bicarbonate 27 mmol/L 05/26 Unknown COMPREHENSIVE METABOLIC 49524 AGAP 10 mmol/L 2018 Unknown FERRITIN 73146 FERRITIN 35.5 ng/mL 05/08/2019 Unknown VITAMIN D TOTAL (25 HYDROXY) 58676 Vitamin D 25 OH 26.0 ng/mL 05/08/2019 Unknown GLYCOSYLATED HEMOGLOBIN TEST 50378 Hgb A1c 18194-1 8.2 % 0 05/08/2019 Unknown MEAN GLUC 4689131 Calc Mean Gluc 189 mg/dL 05/08/2019 Unkn own GFR CALC 9034370 GFR Afr Amr >60 mL/min 05/08/2019 Unknow n GFR CALC 9136821 GFR Non Afr Amr >60 mL/min 05/08/2019 Un known VITAMIN B 12 36219 VITAMIN B12 197 pg/mL 05/08/2019 Unkn own IRON 41982 Iron 34 ug/dL 05/08/2019 Unknown COMPLETE BLOOD COUNT 9806526 WBC 6.9 10e9/L 05/08/20 19 Unknown COMPLETE BLOOD COUNT 6210103 RBC 3.95 10e12/L 2018 Unknown COMPLETE BLOOD COUNT 3155299 HEMOGLOBIN 11.1 g/dL 05/08/20 19 Unknown COMPLETE BLOOD COUNT 6919125 HEMATOCRIT 34.9 % 05/08/20 19 Unknown COMPLETE BLOOD COUNT 2582808 MCV 88.4 fL 9 Unknown COMPLETE BLOOD COUNT 3298171 MCH 28.1 pg 9 Unknown COMPLETE BLOOD COUNT 9635496 MCHC 31.8 g/dL 9 Unknown COMPLETE BLOOD COUNT 3708463 PLATELET COUNT 217 10e9/L Unknown COMPLETE BLOOD COUNT 6029790 Mean Plt Volume 9.6 fL Unknown COMPLETE BLOOD COUNT 3127058 Neut Auto 77.6 % 9 Unknown COMPLETE BLOOD COUNT 1230591 Lymph Auto 10.7 % 05/08/20 19 Unknown COMPLETE BLOOD COUNT 2075627 [place] Auto 10.4 % 9 Unknown COMPLETE BLOOD COUNT 2302643 RDW 14.7 % 9 Unknown COMPLETE BLOOD COUNT 1583264 Eos Auto 1.2 % 9 Unknown COMPLETE BLOOD COUNT 2659464 Baso Auto 0.1 % 9 Unknown COMPLETE BLOOD COUNT 0441104 Neutrophil Abs 5.35 10e9/L Unknown COMPLETE BLOOD COUNT 9489850 Lymphocyte Abs 0.74 10e9/L Unknown COMPLETE BLOOD COUNT 8940806 Monocyte Abs 0.72 10e9/L 04/24 Unknown COMPLETE BLOOD COUNT 4132678 Eosinophil Abs 0.08 10e9/L Unknown COMPLETE BLOOD COUNT 6936291 RDW-SD 46.6 fL 9 Unknown COMPLETE BLOOD COUNT 3649010 Basophil Abs 0.01 10e9/L 04/24 Unknown COMPREHENSIVE METABOLIC 00467 AST 13 U/L 2018 Unknown COMPREHENSIVE METABOLIC 36700 ALT 9 U/L 2018 Unknown COMPREHENSIVE METABOLIC 47729 BUN 18 mg/dL 2018 Unknown COMPREHENSIVE METABOLIC 30865 ALBUMIN 4.3 g/dL 2018 Unknown COMPREHENSIVE METABOLIC 97226 CHLORIDE 99 mmol/L 2018 Unknown COMPREHENSIVE METABOLIC 78131 Bili Total 0.4 mg/dL 05/08 Unknown COMPREHENSIVE METABOLIC 73464 ALK PHOS 48 U/L 2018 Unknown COMPREHENSIVE METABOLIC 42877 SODIUM 137 mmol/L 05/08 Unknown COMPREHENSIVE METABOLIC 28935 CREATININE 0.79 mg/dL 04/24 Unknown COMPREHENSIVE METABOLIC 02404 CALCIUM 9.5 mg/dL 2018 Unknown COMPREHENSIVE METABOLIC 61504 POTASSIUM 4.0 mmol/L 05/08 Unknown COMPREHENSIVE METABOLIC 43878 Total Protein 6.3 g/dL Unknown COMPREHENSIVE METABOLIC 32874 Glucose 232 mg/dL 2018 Unknown COMPREHENSIVE METABOLIC 37224 Bicarbonate 27 mmol/L 04/24 Unknown COMPREHENSIVE METABOLIC 71629 AGAP 11 mmol/L 2018 Unknown GLYCOSYLATED HEMOGLOBIN TEST 86175 Hgb A1c 23559-9 8.9 % 0 12/10/2018 Unknown MEAN GLUC 6380335 Calc Mean Gluc 209 mg/dL 12/10/2018 Unkn own LIPID GROUP 80773 Cholesterol 145 mg/dL 12/09/2018 Unkno wn LIPID GROUP 03540 Triglyceride 235 mg/dL 12/09/2018 Unkn own LIPID GROUP 20421 HDL CHOLESTEROL 40 mg/dL 12/09/2018 U nknown LIPID GROUP 35444 Chol/HDL Ratio 3.62 ratio 12/09/2018 U nknown LIPID GROUP 65571 NON-HDL Chol 105 mg/dL 12/09/2018 Unkn own LIPID GROUP 60296 LDL Cholesterol 58 mg/dL 12/09/2018 U nknown THYROID STIMULATING HORMONE 76798 TSH 1.071 uIU/mL 12/09/2018 Unknown GFR CALC 5395173 GFR Non Afr Amr >60 mL/min 12/09/2018 Un known GFR CALC 3575944 GFR Afr Amr >60 mL/min 12/09/2018 Unknow n COMPLETE BLOOD COUNT 4693497 WBC 7.6 10e9/L 12/10/19 19 Unknown COMPLETE BLOOD COUNT 9737240 RBC 3.97 10e12/L 2018 Unknown COMPLETE BLOOD COUNT 5271396 HEMOGLOBIN 11.4 g/dL 12/10/19 19 Unknown COMPLETE BLOOD COUNT 0755231 HEMATOCRIT 35.8 % 12/10/19 19 Unknown COMPLETE BLOOD COUNT 9589059 MCV 90.2 fL 9 Unknown COMPLETE BLOOD COUNT 8969891 MCH 28.7 pg 9 Unknown COMPLETE BLOOD COUNT 8046122 MCHC 31.8 g/dL 9 Unknown COMPLETE BLOOD COUNT 8662678 PLATELET COUNT 200 10e9/L Unknown COMPLETE BLOOD COUNT 2810789 Mean Plt Volume 10.1 fL Unknown COMPLETE BLOOD COUNT 8241716 Neut Auto 79.0 % 9 Unknown COMPLETE BLOOD COUNT 2249389 Lymph Auto 8.3 % 12/10/19 19 Unknown COMPLETE BLOOD COUNT 9191293 [place] Auto 10.8 % 9 Unknown COMPLETE BLOOD COUNT 1535197 Eos Auto 1.5 % 9 Unknown COMPLETE BLOOD COUNT 2595901 RDW 14.6 % 9 Unknown COMPLETE BLOOD COUNT 8652180 Baso Auto 0.4 % 9 Unknown COMPLETE BLOOD COUNT 0134245 Neutrophil Abs 6.00 10e9/L Unknown COMPLETE BLOOD COUNT 5553499 Lymphocyte Abs 0.63 10e9/L Unknown COMPLETE BLOOD COUNT 7114065 Monocyte Abs 0.82 10e9/L 11/22 Unknown COMPLETE BLOOD COUNT 8652591 Eosinophil Abs 0.11 10e9/L Unknown COMPLETE BLOOD COUNT 2661245 RDW-SD 46.9 fL 9 Unknown COMPLETE BLOOD COUNT 3924916 Basophil Abs 0.03 10e9/L 11/22 Unknown COMPREHENSIVE METABOLIC 99037 AST 11 U/L 2018 Unknown COMPREHENSIVE METABOLIC 72367 ALT 11 U/L 2018 Unknown COMPREHENSIVE METABOLIC 46499 BUN 21 mg/dL 2018 Unknown COMPREHENSIVE METABOLIC 09081 ALBUMIN 4.7 g/dL 2018 Unknown COMPREHENSIVE METABOLIC 86184 CHLORIDE 99 mmol/L 2018 Unknown COMPREHENSIVE METABOLIC 88197 Bili Total 0.4 mg/dL 12/09 Unknown COMPREHENSIVE METABOLIC 04079 ALK PHOS 73 U/L 2018 Unknown COMPREHENSIVE METABOLIC 90264 SODIUM 137 mmol/L 12/09 Unknown COMPREHENSIVE METABOLIC 91334 CREATININE 1.12 mg/dL 11/22 Unknown COMPREHENSIVE METABOLIC 23674 CALCIUM 9.4 mg/dL 2018 Unknown COMPREHENSIVE METABOLIC 49687 POTASSIUM 4.2 mmol/L 12/09 Unknown COMPREHENSIVE METABOLIC 40825 Total Protein 6.8 g/dL Unknown COMPREHENSIVE METABOLIC 07924 Glucose 194 mg/dL 2018 Unknown COMPREHENSIVE METABOLIC 25856 Bicarbonate 30 mmol/L 11/22 Unknown COMPREHENSIVE METABOLIC 74529 AGAP 8 mmol/L 2018 Unknown FREE T4 59057 T4 Free 0.86 ng/dL 12/09/2018 Unknown COMPLETE BLOOD COUNT 0358370 WBC 6.8 10e9/L 04/17/20 17 Unknown COMPLETE BLOOD COUNT 2796896 RBC 3.86 10e12/L 2016 Unknown COMPLETE BLOOD COUNT 6136483 HEMOGLOBIN 9.8 g/dL 04/17/20 17 Unknown COMPLETE BLOOD COUNT 9045534 HEMATOCRIT 31.1 % 04/17/20 17 Unknown COMPLETE BLOOD COUNT 5916603 MCV 80.6 fL 7 Unknown COMPLETE BLOOD COUNT 0140058 MCH 25.4 pg 7 Unknown COMPLETE BLOOD COUNT 3524657 MCHC 31.5 g/dL 7 Unknown COMPLETE BLOOD COUNT 6854915 PLATELET COUNT 247 10e9/L Unknown COMPLETE BLOOD COUNT 2845224 Mean Plt Volume 9.7 fL Unknown COMPLETE BLOOD COUNT 0790849 Neut Auto 74.1 % 7 Unknown COMPLETE BLOOD COUNT 8242499 Lymph Auto 12.0 % 04/17/20 17 Unknown COMPLETE BLOOD COUNT 0098796 [place] Auto 10.8 % 7 Unknown COMPLETE BLOOD COUNT 4083232 RDW 15.9 % 7 Unknown COMPLETE BLOOD COUNT 1913338 Eos Auto 2.5 % 7 Unknown COMPLETE BLOOD COUNT 0721730 Baso Auto 0.6 % 7 Unknown COMPLETE BLOOD COUNT 9500808 Neutrophil Abs 5.04 10e9/L Unknown COMPLETE BLOOD COUNT 8943963 Lymphocyte Abs 0.82 10e9/L Unknown COMPLETE BLOOD COUNT 1894844 Monocyte Abs 0.73 10e9/L 03/25 Unknown COMPLETE BLOOD COUNT 3179206 Eosinophil Abs 0.17 10e9/L Unknown COMPLETE BLOOD COUNT 5334862 Basophil Abs 0.04 10e9/L 03/25 Unknown COMPLETE BLOOD COUNT 3186880 RDW-SD 44.4 fL 7 Unknown MEAN GLUC 8424228 Calc Mean Gluc 223 mg/dL 04/17/2017 Unkn own GFR CALC 7574643 GFR Afr Amr >60 mL/min 04/17/2017 Unknow n GFR CALC 0891312 GFR Non Afr Amr >60 mL/min 04/17/2017 Un known GLYCOSYLATED HEMOGLOBIN TEST 93485 Hgb A1c 07347-3 9.4 % 0 04/17/2017 Unknown IRON 40122 Iron 37 ug/dL 04/17/2017 Unknown VITAMIN B 12 45123 VITAMIN B12 280 pg/mL 04/17/2017 Unkn own THYROID STIMULATING HORMONE 16029 TSH 2.481 uIU/mL 04/17/2017 Unknown COMPREHENSIVE METABOLIC 48951 AST 13 U/L 2016 Unknown COMPREHENSIVE METABOLIC 92145 ALT 12 U/L 2016 Unknown COMPREHENSIVE METABOLIC 52424 BUN 18 mg/dL 2016 Unknown COMPREHENSIVE METABOLIC 10400 ALBUMIN 4.7 g/dL 2016 Unknown COMPREHENSIVE METABOLIC 54387 CHLORIDE 103 mmol/L 04/17 Unknown COMPREHENSIVE METABOLIC 44256 Bili Total 0.4 mg/dL 04/17 Unknown COMPREHENSIVE METABOLIC 72862 ALK PHOS 49 U/L 2016 Unknown COMPREHENSIVE METABOLIC 89018 SODIUM 140 mmol/L 04/17 Unknown COMPREHENSIVE METABOLIC 85061 CREATININE 1.14 mg/dL 03/25 Unknown COMPREHENSIVE METABOLIC 31806 CALCIUM 9.4 mg/dL 2016 Unknown COMPREHENSIVE METABOLIC 88757 POTASSIUM 4.4 mmol/L 04/17 Unknown COMPREHENSIVE METABOLIC 41551 Total Protein 6.7 g/dL Unknown COMPREHENSIVE METABOLIC 29031 Glucose 266 mg/dL 2016 Unknown COMPREHENSIVE METABOLIC 09683 Bicarbonate 25 mmol/L 03/25 Unknown COMPREHENSIVE METABOLIC 51808 AGAP 12 mmol/L 2016 Unknown FERRITIN 61631 FERRITIN 10.0 ng/mL 04/17/2017 Unknown COMPLETE BLOOD COUNT 7491665 WBC 6.8 10e9/L 12/22/19 17 Unknown COMPLETE BLOOD COUNT 9311656 RBC 3.70 10e12/L 2016 Unknown COMPLETE BLOOD COUNT 7590800 HEMOGLOBIN 8.0 g/dL 12/22/19 17 Unknown COMPLETE BLOOD COUNT 5545411 HEMATOCRIT 26.7 % 12/22/19 17 Unknown COMPLETE BLOOD COUNT 2489921 MCV 72.2 fL 7 Unknown COMPLETE BLOOD COUNT 1334506 MCH 21.6 pg 7 Unknown COMPLETE BLOOD COUNT 1588728 MCHC 30.0 g/dL 7 Unknown COMPLETE BLOOD COUNT 2988927 PLATELET COUNT 290 10e9/L Unknown COMPLETE BLOOD COUNT 1140018 Mean Plt Volume 9.3 fL Unknown COMPLETE BLOOD COUNT 1839672 Neut Auto 80.2 % 7 Unknown COMPLETE BLOOD COUNT 2640441 Lymph Auto 9.8 % 12/22/19 17 Unknown COMPLETE BLOOD COUNT 0205157 [place] Auto 8.1 % 7 Unknown COMPLETE BLOOD COUNT 1369561 RDW 17.4 % 7 Unknown COMPLETE BLOOD COUNT 4451862 Eos Auto 1.5 % 7 Unknown COMPLETE BLOOD COUNT 6587633 Baso Auto 0.4 % 7 Unknown COMPLETE BLOOD COUNT 1847690 Neutrophil Abs 5.45 10e9/L Unknown COMPLETE BLOOD COUNT 2683320 Lymphocyte Abs 0.67 10e9/L Unknown COMPLETE BLOOD COUNT 6246918 Monocyte Abs 0.55 10e9/L 11/24 Unknown COMPLETE BLOOD COUNT 1120093 Eosinophil Abs 0.10 10e9/L Unknown COMPLETE BLOOD COUNT 4583687 RDW-SD 44.1 fL 7 Unknown COMPLETE BLOOD COUNT 4951985 Basophil Abs 0.03 10e9/L 11/24 Unknown COMPLETE BLOOD COUNT 3513166 WBC 7.6 10e9/L 12/13/19 17 Unknown COMPLETE BLOOD COUNT 5580644 RBC 3.71 10e12/L 2016 Unknown COMPLETE BLOOD COUNT 6914127 HEMOGLOBIN 8.0 g/dL 12/13/19 17 Unknown COMPLETE BLOOD COUNT 4004321 HEMATOCRIT 27.3 % 12/13/19 17 Unknown COMPLETE BLOOD COUNT 9130967 MCV 73.6 fL 7 Unknown COMPLETE BLOOD COUNT 0997137 MCH 21.6 pg 7 Unknown COMPLETE BLOOD COUNT 4708767 MCHC 29.3 g/dL 7 Unknown COMPLETE BLOOD COUNT 5931590 PLATELET COUNT 330 10e9/L Unknown COMPLETE BLOOD COUNT 1816808 Mean Plt Volume 9.7 fL Unknown COMPLETE BLOOD COUNT 9578989 Neut Auto 73.2 % 7 Unknown COMPLETE BLOOD COUNT 5205180 Lymph Auto 14.5 % 12/13/19 17 Unknown COMPLETE BLOOD COUNT 6447150 [place] Auto 10.5 % 7 Unknown COMPLETE BLOOD COUNT 0409666 Eos Auto 1.3 % 7 Unknown COMPLETE BLOOD COUNT 6685051 RDW 17.3 % 7 Unknown COMPLETE BLOOD COUNT 2413997 Baso Auto 0.5 % 7 Unknown COMPLETE BLOOD COUNT 7221662 Neutrophil Abs 5.56 10e9/L Unknown COMPLETE BLOOD COUNT 5056318 Lymphocyte Abs 1.10 10e9/L Unknown COMPLETE BLOOD COUNT 7942283 Monocyte Abs 0.80 10e9/L 11/23 Unknown COMPLETE BLOOD COUNT 1034078 Eosinophil Abs 0.10 10e9/L Unknown COMPLETE BLOOD COUNT 4196025 Basophil Abs 0.04 10e9/L 11/23 Unknown COMPLETE BLOOD COUNT 5179341 RDW-SD 45.2 fL 7 Unknown IRON 18330 Iron 69 ug/dL 03/09/2016 Unknown VITAMIN B 12 71574 VITAMIN B12 311 pg/mL 03/09/2016 Unkn own MEAN GLUC 7957573 Mean Glucose 260 mg/dL 03/07/2016 Unknow n GLYCOSYLATED HEMOGLOBIN TEST 32568 Hgb A1c 11352-2 10.7 % 0 03/07/2016 Unknown COMPREHENSIVE METABOLIC 93126 AST 14 U/L 2015 Unknown COMPREHENSIVE METABOLIC 17513 ALT 21 U/L 2015 Unknown COMPREHENSIVE METABOLIC 65436 BUN 27 mg/dL 2015 Unknown COMPREHENSIVE METABOLIC 06703 ALBUMIN 4.5 g/dL 2015 Unknown COMPREHENSIVE METABOLIC 29878 CHLORIDE 101 mmol/L 03/06 Unknown COMPREHENSIVE METABOLIC 17189 Bili Total 0.4 mg/dL 03/06 Unknown COMPREHENSIVE METABOLIC 17160 ALK PHOS 49 U/L 2015 Unknown COMPREHENSIVE METABOLIC 68059 SODIUM 136 mmol/L 03/06 Unknown COMPREHENSIVE METABOLIC 35727 CREATININE 1.16 mg/dL 02/22 Unknown COMPREHENSIVE METABOLIC 16134 CALCIUM 9.9 mg/dL 2015 Unknown COMPREHENSIVE METABOLIC 76373 POTASSIUM 4.5 mmol/L 03/06 Unknown COMPREHENSIVE METABOLIC 51662 Total Protein 6.7 g/dL Unknown COMPREHENSIVE METABOLIC 60267 Glucose 245 mg/dL 2015 Unknown COMPREHENSIVE METABOLIC 78225 Bicarbonate 24 mmol/L 02/22 Unknown COMPREHENSIVE METABOLIC 34051 AGAP 11 mmol/L 2015 Unknown THYROID STIMULATING HORMONE 36860 TSH 0.775 uIU/mL 03/06/2016 Unknown TESTOSTERONE TOTAL 47583 Testos Total 96 ng/dL 03/06/20 16 Unknown LIPID GROUP 08725 Cholesterol 146 mg/dL 03/06/2016 Unkno wn LIPID GROUP 86392 Triglyceride 249 mg/dL 03/06/2016 [facility] own LIPID GROUP 82685 HDL CHOLESTEROL 46 mg/dL 03/06/2016 [facility] LIPID GROUP 93907 Chol/HDL Ratio 3.17 ratio 03/06/2016 [facility] LIPID GROUP 87290 NON-HDL Chol 100 mg/dL 03/06/2016 [facility] own LIPID GROUP 74977 LDL Cholesterol 50 mg/dL 03/06/2016 [facility] COMPLETE BLOOD COUNT 5620292 WBC 11.2 10e9/L 016 Unknown COMPLETE BLOOD COUNT 2892667 RBC 3.94 10e12/L 2015 Unknown COMPLETE BLOOD COUNT 6806688 HEMOGLOBIN 11.4 g/dL 03/06/20 16 Unknown COMPLETE BLOOD COUNT 4464603 HEMATOCRIT 33.7 % 03/06/20 16 Unknown COMPLETE BLOOD COUNT 5801947 MCV 85.5 fL 6 Unknown COMPLETE BLOOD COUNT 4797406 MCH 28.9 pg 6 Unknown COMPLETE BLOOD COUNT 4929080 MCHC 33.8 g/dL 6 Unknown COMPLETE BLOOD COUNT 8399036 PLATELET COUNT 204 10e9/L Unknown COMPLETE BLOOD COUNT 5495956 Mean Plt Volume 10.1 fL Unknown COMPLETE BLOOD COUNT 8113021 Neut Auto 85.9 % 6 Unknown COMPLETE BLOOD COUNT 3591370 Lymph Auto 6.8 % 03/06/20 16 Unknown COMPLETE BLOOD COUNT 6722681 [place] Auto 7.0 % 6 Unknown COMPLETE BLOOD COUNT 0086088 RDW 13.7 % 6 Unknown COMPLETE BLOOD COUNT 8073917 Eos Auto 0.1 % 6 Unknown COMPLETE BLOOD COUNT 8125863 Baso Auto 0.2 % 6 Unknown COMPLETE BLOOD COUNT 6425653 Neutrophil Abs 9.62 10e9/L Unknown COMPLETE BLOOD COUNT 5582604 Lymphoctye Abs 0.76 10e9/L Unknown COMPLETE BLOOD COUNT 9696906 Monocyte Abs 0.78 10e9/L 02/22 Unknown COMPLETE BLOOD COUNT 7021751 Eosinophil Abs 0.01 10e9/L Unknown COMPLETE BLOOD COUNT 6622282 RDW-SD 41.9 fL 6 Unknown COMPLETE BLOOD COUNT 9670033 Basophil Abs 0.02 10e9/L 02/22 Unknown FREE T4 44929 T4 Free 0.89 ng/dL 03/06/2016 Unknown GFR CALC 1429533 GFR Non Afr Amr >60 mL/min 03/06/2016 Un known GFR CALC 7266787 GFR Afr Amr >60 mL/min 03/06/2016 Unknow n PSA EQUIMOLAR JONATAN 57150 PSA Total 0.78 ng/mL 6 Unknown FREE T4 02235 FREE T4 0.90 NG/DL 07/01/2015 Unknown LIPID GROUP 49605 HDL TEST 44 MG/DL 07/01/2015 Unknown LIPID GROUP 81334 TRIG 303 MG/DL 07/01/2015 Unknown LIPID GROUP 43013 TEST LDL 56 MG/DL 07/01/2015 Unknown LIPID GROUP 88812 CHOL 161 MG/DL 07/01/2015 Unknown LIPID GROUP 97501 RCHOL/HDL 3.66 RATIO 07/01/2015 Unknow n LIPID GROUP 43988 NON-HDL CH 117 MG/DL 07/01/2015 Unknow n THYROID STIMULATING HORMONE 65607 TSH 1.783 uIU/ML 07/01/2015 Unknown COMPLETE BLOOD COUNT 9962714 WBC 6.6 10e9/L 07/01/20 15 Unknown COMPLETE BLOOD COUNT 1855631 RBC 4.18 10e12/L 2014 Unknown COMPLETE BLOOD COUNT 4388128 HGB 12.2 g/dL 5 Unknown COMPLETE BLOOD COUNT 6476764 HCT DET 37.0 % 5 Unknown COMPLETE BLOOD COUNT 5027128 MCV 88.5 fL 5 Unknown COMPLETE BLOOD COUNT 7265551 MCH 29.2 pg 5 Unknown COMPLETE BLOOD COUNT 0210577 MCHC 33.0 g/dL 5 Unknown COMPLETE BLOOD COUNT 9394094 PLT 224 10e9/L 07/01/20 15 Unknown COMPLETE BLOOD COUNT 3205498 MPV 10.4 fL 5 Unknown COMPLETE BLOOD COUNT 9359808 SUSIE % 72.6 % 5 Unknown COMPLETE BLOOD COUNT 2058484 LY % 14.1 % 5 Unknown COMPLETE BLOOD COUNT 8322992 MON % 10.2 % 5 Unknown COMPLETE BLOOD COUNT 6683434 EOS % 2.6 % 5 Unknown COMPLETE BLOOD COUNT 8710460 BASO % 0.5 % 5 Unknown COMPLETE BLOOD COUNT 0714408 RDW 14.1 % 5 Unknown COMPLETE BLOOD COUNT 1002148 ABS SUSIE 4.79 10e9/L 015 Unknown COMPLETE BLOOD COUNT 5640807 ABS LYMPH 0.93 10e9/L 015 Unknown COMPLETE BLOOD COUNT 2182561 ABS MONO 0.67 10e9/L 015 Unknown COMPLETE BLOOD COUNT 9174570 ABS EOS 0.17 10e9/L 015 Unknown COMPLETE BLOOD COUNT 7099141 ABS BASO 0.03 10e9/L 015 Unknown COMPLETE BLOOD COUNT 9992232 RDW-SD 43.9 fL 5 Unknown PSA EQUIMOLAR JONATAN 16727 PSA EQ 0.73 NG/ML 5 Unknown COMPREHENSIVE METABOLIC 64123 AST 24 U/L 2014 Unknown COMPREHENSIVE METABOLIC 50762 ALT 26 IU/L 2014 Unknown COMPREHENSIVE METABOLIC 31083 BUN 26 MG/DL 2014 Unknown COMPREHENSIVE METABOLIC 67686 ALBUMIN 4.6 GM/DL 2014 Unknown COMPREHENSIVE METABOLIC 83336 CHLORIDE 102 MMOL/L 06/01 Unknown COMPREHENSIVE METABOLIC 41817 BILI TOT 0.5 MG/DL 2014 Unknown COMPREHENSIVE METABOLIC 22459 ALK PHOS 56 U/L 2014 Unknown COMPREHENSIVE METABOLIC 25228 SODIUM 136 MMOL/L 06/01 Unknown COMPREHENSIVE METABOLIC 66320 CREATININE 1.16 MG/DL 04/2015 Unknown COMPREHENSIVE METABOLIC 65414 CALCIUM 9.8 MG/DL 2014 Unknown COMPREHENSIVE METABOLIC 94567 POTASSIUM 4.6 MMOL/L 06/01 Unknown COMPREHENSIVE METABOLIC 25203 PROT TOT 7.4 GM/DL 2014 Unknown COMPREHENSIVE METABOLIC 18801 Glucose 223 MG/DL 2014 Unknown COMPREHENSIVE METABOLIC 38197 BICARB 27 MMOL/L 2014 Unknown COMPREHENSIVE METABOLIC 69430 ANION GAP 7 MEQ/L 2014 Unknown GFR CALC 3797253 GFR AA >60 ML/MIN 06/01/2015 Unknown GFR CALC 9305286 GFR NON-AA >60 ML/MIN 06/01/2015 Unknown GLYCOSYLATED HEMOGLOBIN TEST 09731 A1C HPLC 43995-2 8.9 % 0 06/01/2015 Unknown GFR CALC 0790110 GFR AA >60 ML/MIN 02/25/2015 Unknown GFR CALC 9964719 GFR NON-AA >60 ML/MIN 02/25/2015 Unknown COMPREHENSIVE METABOLIC 26037 AST 24 U/L 2014 Unknown COMPREHENSIVE METABOLIC 46323 ALT 25 IU/L 2014 Unknown COMPREHENSIVE METABOLIC 80697 BUN 14 MG/DL 2014 Unknown COMPREHENSIVE METABOLIC 12707 ALBUMIN 4.5 GM/DL 2014 Unknown COMPREHENSIVE METABOLIC 68758 CHLORIDE 99 MMOL/L 2014 Unknown COMPREHENSIVE METABOLIC 85052 BILI TOT 0.5 MG/DL 2014 Unknown COMPREHENSIVE METABOLIC 49536 ALK PHOS 48 U/L 2014 Unknown COMPREHENSIVE METABOLIC 06220 SODIUM 136 MMOL/L 02/25 Unknown COMPREHENSIVE METABOLIC 19731 CREATININE 0.97 MG/DL 12/2014 Unknown COMPREHENSIVE METABOLIC 01301 CALCIUM 9.9 MG/DL 2014 Unknown COMPREHENSIVE METABOLIC 12491 POTASSIUM 4.4 MMOL/L 02/25 Unknown COMPREHENSIVE METABOLIC 08149 PROT TOT 7.1 GM/DL 2014 Unknown COMPREHENSIVE METABOLIC 11444 Glucose 171 MG/DL 2014 Unknown COMPREHENSIVE METABOLIC 44274 BICARB 25 MMOL/L 2014 Unknown COMPREHENSIVE METABOLIC 62325 ANION GAP 12 MEQ/L 2014 Unknown PROTEIN/CREAT URINE WITH RATIO 84822|51733 PROT R U 19 MG/D L 08/27/2014 Unknown PROTEIN/CREAT URINE WITH RATIO 67075|78035 CREAT R U 111 MG/ DL 08/27/2014 Unknown PROTEIN/CREAT URINE WITH RATIO 24368|26628 XRATIO P/C 171 MG /G 08/27/2014 Unknown MICROALBUMIN URINE RANDOM 54556 MICRL MG/L 34.7 MG/L 12/2013 Unknown MICROALBUMIN URINE RANDOM 67306 XM.ALB/CRE 32.7 MG/GCR 1 10/28/2013 Unknown MICROALBUMIN URINE RANDOM 73752 CREAT MG/D 106 MG/DL 12/2013 Unknown MICROALBUMIN URINE RANDOM 73298 CRE/100 1.06 G/L 12/2013 Unknown COMPLETE BLOOD COUNT [id number] WBC 7.1 10e9/L 08/05/20 14 Unknown COMPLETE BLOOD COUNT [id number] RBC 4.35 10e12/L 2013 Unknown COMPLETE BLOOD COUNT 0278455 HGB 12.9 g/dL 4 Unknown COMPLETE BLOOD COUNT 8858152 HCT DET 39.4 % 4 Unknown COMPLETE BLOOD COUNT [id number] MCV 90.6 fL 4 Unknown COMPLETE BLOOD COUNT [id number] MCH 29.7 pg 4 Unknown COMPLETE BLOOD COUNT [id number] MCHC 32.7 g/dL 4 Unknown COMPLETE BLOOD COUNT [id number] PLT 240 10e9/L 08/05/20 14 Unknown COMPLETE BLOOD COUNT [id number] MPV 10.3 fL 4 Unknown COMPLETE BLOOD COUNT [id number] SUSIE % 70.0 % 4 Unknown COMPLETE BLOOD COUNT [id number] LY % 16.4 % 4 Unknown COMPLETE BLOOD COUNT [id number] MON % 9.2 % 4 Unknown COMPLETE BLOOD COUNT [id number] EOS % 3.8 % 4 Unknown COMPLETE BLOOD COUNT [id number] BASO % 0.6 % 4 Unknown COMPLETE BLOOD COUNT [id number] RDW 13.4 % 4 Unknown COMPLETE BLOOD COUNT [id number] ABS SUSIE 4.97 10e9/L 014 Unknown COMPLETE BLOOD COUNT [id number] ABS LYMPH 1.16 10e9/L 014 Unknown COMPLETE BLOOD COUNT [id number] ABS MONO 0.65 10e9/L 014 Unknown COMPLETE BLOOD COUNT [id number] ABS EOS 0.27 10e9/L 014 Unknown COMPLETE BLOOD COUNT [id number] ABS BASO 0.04 10e9/L 014 Unknown COMPLETE BLOOD COUNT [id number] RDW-SD 43.3 fL 4 Unknown FREE T4 30876 FREE T4 1.02 NG/DL 08/05/2014 Unknown GFR CALC 6536611 GFR AA >60 ML/MIN 08/05/2014 Unknown GFR CALC 2885560 GFR NON-AA >60 ML/MIN 08/05/2014 Unknown GLYCOSYLATED HEMOGLOBIN TEST 69390 A1C HPLC 40962-5 7.7 % 1 10/05/2013 Unknown COMPREHENSIVE METABOLIC 12270 AST 19 U/L 2013 Unknown COMPREHENSIVE METABOLIC 63734 ALT 21 IU/L 2013 Unknown COMPREHENSIVE METABOLIC 98901 BUN 25 MG/DL 2013 Unknown COMPREHENSIVE METABOLIC 30485 ALBUMIN 4.6 GM/DL 2013 Unknown COMPREHENSIVE METABOLIC 96570 CHLORIDE 103 MMOL/L 08/05 Unknown COMPREHENSIVE METABOLIC 68316 BILI TOT 0.4 MG/DL 2013 Unknown COMPREHENSIVE METABOLIC 47867 ALK PHOS 45 U/L 2013 Unknown COMPREHENSIVE METABOLIC 88232 SODIUM 138 MMOL/L 08/05 Unknown COMPREHENSIVE METABOLIC 75798 CREATININE 1.01 MG/DL 07/25 Unknown COMPREHENSIVE METABOLIC 91040 CALCIUM 9.8 MG/DL 2013 Unknown COMPREHENSIVE METABOLIC 14420 POTASSIUM 4.7 MMOL/L 08/05 Unknown COMPREHENSIVE METABOLIC 13042 PROT TOT 7.0 GM/DL 2013 Unknown COMPREHENSIVE METABOLIC 38920 Glucose 145 MG/DL 2013 Unknown COMPREHENSIVE METABOLIC 37742 BICARB 27 MMOL/L 2013 Unknown COMPREHENSIVE METABOLIC 11073 ANION GAP 8 MEQ/L 2013 Unknown THYROID STIMULATING HORMONE 34418 TSH 1.922 uIU/ML 08/05/2014 Unknown LIPID GROUP 74039 HDL TEST 47 MG/DL 08/05/2014 Unknown LIPID GROUP 14890 TRIG 224 MG/DL 08/05/2014 Unknown LIPID GROUP 58896 TEST LDL 125 MG/DL 08/05/2014 Unknown LIPID GROUP 94092 CHOL 217 MG/DL 08/05/2014 Unknown LIPID GROUP 61071 RCHOL/HDL 4.62 RATIO 08/05/2014 Unknow n LIPID GROUP 42534 NON-HDL CH 170 MG/DL 08/05/2014 Unknow n MYCOPLASMA ANTIBODY, IFA [id number] MYCO G IFA 1:256 03/24 Unknown MYCOPLASMA ANTIBODY, IFA [id number] MYCO M IFA <1:10 03/24 Unknown MYCOPLASMA ANTIBODY, IFA [id number] MYCO INTER SEE BELO 03/24 Unknown COMPLETE BLOOD COUNT [id number] WBC 8.3 10e9/L 04/09/20 13 Unknown COMPLETE BLOOD COUNT [id number] RBC 4.61 10e12/L 2012 Unknown COMPLETE BLOOD COUNT [id number] HGB 13.9 g/dL 3 Unknown COMPLETE BLOOD COUNT [id number] HCT DET 41.2 % 3 Unknown COMPLETE BLOOD COUNT [id number] MCV 89.4 fL 3 Unknown COMPLETE BLOOD COUNT [id number] MCH 30.2 pg 3 Unknown COMPLETE BLOOD COUNT [id number] MCHC 33.7 g/dL 3 Unknown COMPLETE BLOOD COUNT [id number] PLT 249 10e9/L 04/09/20 13 Unknown COMPLETE BLOOD COUNT [id number] MPV 9.8 fL 3 Unknown COMPLETE BLOOD COUNT [id number] SUSIE % 65.9 % 3 Unknown COMPLETE BLOOD COUNT [id number] LY % 19.8 % 3 Unknown COMPLETE BLOOD COUNT [id number] MON % 10.8 % 3 Unknown COMPLETE BLOOD COUNT [id number] EOS % 3.0 % 3 Unknown COMPLETE BLOOD COUNT [id number] BASO % 0.5 % 3 Unknown COMPLETE BLOOD COUNT 5250294 RDW 14.0 % 3 Unknown COMPLETE BLOOD COUNT [id number] ABS SUSIE 5.47 10e9/L 013 Unknown COMPLETE BLOOD COUNT [id number] ABS LYMPH 1.64 10e9/L 013 Unknown COMPLETE BLOOD COUNT [id number] ABS MONO 0.90 10e9/L 013 Unknown COMPLETE BLOOD COUNT [id number] ABS EOS 0.25 10e9/L 013 Unknown COMPLETE BLOOD COUNT [id number] ABS BASO 0.04 10e9/L 013 Unknown COMPLETE BLOOD COUNT 5321177 RDW-SD 45.0 fL 3 Unknown URIC ACID 51720 URIC ACID 5.3 MG/DL 02/12/2013 Unknown FREE T4 38861 FREE T4 1.09 NG/DL 02/11/2013 Unknown COMPLETE BLOOD COUNT [id number] WBC 6.3 10e9/L 02/12/20 13 Unknown COMPLETE BLOOD COUNT [id number] RBC 4.29 10e12/L 2012 Unknown COMPLETE BLOOD COUNT 9443516 HGB 13.1 g/dL 3 Unknown COMPLETE BLOOD COUNT [id number] HCT DET 39.7 % 3 Unknown COMPLETE BLOOD COUNT [id number] MCV 92.5 fL 3 Unknown COMPLETE BLOOD COUNT [id number] MCH 30.5 pg 3 Unknown COMPLETE BLOOD COUNT [id number] MCHC 33.0 g/dL 3 Unknown COMPLETE BLOOD COUNT [id number] PLT 247 10e9/L 02/12/20 13 Unknown COMPLETE BLOOD COUNT [id number] MPV 10.0 fL 3 Unknown COMPLETE BLOOD COUNT [id number] SUSIE % 73.4 % 3 Unknown COMPLETE BLOOD COUNT 4084820 LY % 13.5 % 3 Unknown COMPLETE BLOOD COUNT [id number] MON % 9.4 % 3 Unknown COMPLETE BLOOD COUNT [id number] EOS % 2.9 % 3 Unknown COMPLETE BLOOD COUNT [id number] BASO % 0.8 % 3 Unknown COMPLETE BLOOD COUNT 5726805 RDW 13.8 % 3 Unknown COMPLETE BLOOD COUNT [id number] ABS SUSIE 4.62 10e9/L 013 Unknown COMPLETE BLOOD COUNT [id number] ABS LYMPH 0.85 10e9/L 013 Unknown COMPLETE BLOOD COUNT [id number] ABS MONO 0.59 10e9/L 013 Unknown COMPLETE BLOOD COUNT [id number] ABS EOS 0.18 10e9/L 013 Unknown COMPLETE BLOOD COUNT [id number] ABS BASO 0.05 10e9/L 013 Unknown COMPLETE BLOOD COUNT [id number] RDW-SD 45.7 fL 3 Unknown HEMOGLOBIN A1C (GLYCOSYLATED) 2095743 A1C HPLC 58449-1 7.5 % 02/11/2013 Unknown THYROID STIMULATING HORMONE 59320 TSH 1.466 uIU/ML 02/11/2013 Unknown VITAMIN B 12 FOLIC ACID 88569|99783 VIT B 12 625 PG/ML 01/23 Unknown VITAMIN B 12 FOLIC ACID 56181|63916 FOLIC ACID 15.6 NG/ML Unknown COMPREHENSIVE METABOLIC 03969 AST 18 U/L 2012 Unknown COMPREHENSIVE METABOLIC 35379 ALT 21 IU/L 2012 Unknown COMPREHENSIVE METABOLIC 23778 BUN 25 MG/DL 2012 Unknown COMPREHENSIVE METABOLIC 71090 ALBUMIN 4.6 GM/DL 2012 Unknown COMPREHENSIVE METABOLIC 36263 CHLORIDE 103 MMOL/L 02/11 Unknown COMPREHENSIVE METABOLIC 37502 BILI TOT 0.3 MG/DL 2012 Unknown COMPREHENSIVE METABOLIC 13139 ALK PHOS 53 U/L 2012 Unknown COMPREHENSIVE METABOLIC 28805 SODIUM 136 MMOL/L 02/11 Unknown COMPREHENSIVE METABOLIC 63807 CREATININE 1.16 MG/DL 01/23 Unknown COMPREHENSIVE METABOLIC 86771 CALCIUM 10.0 MG/DL 02/11 Unknown COMPREHENSIVE METABOLIC 39941 POTASSIUM 4.9 MMOL/L 02/11 Unknown COMPREHENSIVE METABOLIC 91960 PROT TOT 7.0 GM/DL 2012 Unknown COMPREHENSIVE METABOLIC 28747 Glucose 192 MG/DL 2012 Unknown COMPREHENSIVE METABOLIC 26252 BICARB 26 MMOL/L 2012 Unknown COMPREHENSIVE METABOLIC 20901 ANION GAP 7 MEQ/L 2012 Unknown GFR CALC 5592008 GFR AA >60 ML/MIN 02/11/2013 Unknown GFR CALC 9833193 GFR NON-AA >60 ML/MIN 02/11/2013 Unknown C-REACTIVE PROTEIN (CRP) QUANT 58549 CRP 2.7 MG/DL 02/11/2013 Unknown GFR CALC 6330378 GFR AA >60 ML/MIN 09/19/2012 Unknown GFR CALC 9119869 GFR NON-AA >60 ML/MIN 09/19/2012 Unknown HEMOGLOBIN A1C (GLYCOSYLATED) 4512095 A1C HPLC 68023-0 7.2 % 09/19/2012 Unknown COMPREHENSIVE METABOLIC 88085 AST 13 U/L 2011 Unknown COMPREHENSIVE METABOLIC 06966 ALT 17 IU/L 2011 Unknown COMPREHENSIVE METABOLIC 51982 BUN 25 MG/DL 2011 Unknown COMPREHENSIVE METABOLIC 30147 ALBUMIN 4.5 GM/DL 2011 Unknown COMPREHENSIVE METABOLIC 65970 CHLORIDE 104 MMOL/L 09/19 Unknown COMPREHENSIVE METABOLIC 93089 BILI TOT 0.3 MG/DL 2011 Unknown COMPREHENSIVE METABOLIC 90497 ALK PHOS 43 U/L 2011 Unknown COMPREHENSIVE METABOLIC 85642 SODIUM 139 MMOL/L 09/19 Unknown COMPREHENSIVE METABOLIC 03652 CREATININE 1.10 MG/DL 08/25 Unknown COMPREHENSIVE METABOLIC 02179 CALCIUM 9.8 MG/DL 2011 Unknown COMPREHENSIVE METABOLIC 53683 POTASSIUM 4.8 MMOL/L 09/19 Unknown COMPREHENSIVE METABOLIC 11769 PROT TOT 6.5 GM/DL 2011 Unknown COMPREHENSIVE METABOLIC 52639 Glucose 148 MG/DL 2011 Unknown COMPREHENSIVE METABOLIC 64540 BICARB 25 MMOL/L 2011 Unknown COMPREHENSIVE METABOLIC 87755 ANION GAP 10 MEQ/L 2011 Unknown LIPID GROUP 59604 HDL TEST 44 MG/DL 09/19/2012 Unknown LIPID GROUP 17288 TRIG 318 MG/DL 09/19/2012 Unknown LIPID GROUP 74553 TEST LDL 100 MG/DL 09/19/2012 Unknown LIPID GROUP 64784 CHOL 208 MG/DL 09/19/2012 Unknown LIPID GROUP 94826 RCHOL/HDL 4.73 RATIO 09/19/2012 Unknow n FREE T4 50149 FREE T4 0.87 NG/DL 05/06/2012 Unknown GLYCOSYLATED HEMOGLOBIN TEST 50066 A1C HPLC 74387-7 6.4 % 0 05/06/2012 Unknown LIPID GROUP 05487 HDL TEST 44 MG/DL 05/06/2012 Unknown LIPID GROUP 39458 TRIG 177 MG/DL 05/06/2012 Unknown LIPID GROUP 10136 TEST LDL 113 MG/DL 05/06/2012 Unknown LIPID GROUP 60298 CHOL 192 MG/DL 05/06/2012 Unknown LIPID GROUP 27093 RCHOL/HDL 4.36 RATIO 05/06/2012 Unknow n THYROID STIMULATING HORMONE 64715 TSH 1.151 uIU/ML 05/06/2012 Unknown COMPLETE BLOOD COUNT 50712 WBC 7.8 10e9/L 05/06/20 12 Unknown COMPLETE BLOOD COUNT 51539 RBC 4.31 10e12/L 2011 Unknown COMPLETE BLOOD COUNT 01658 HGB 12.8 g/dL 2 Unknown COMPLETE BLOOD COUNT 87092 HCT DET 39.1 % 2 Unknown COMPLETE BLOOD COUNT 59589 MCV 90.7 fL 2 Unknown COMPLETE BLOOD COUNT 41008 MCH 29.7 pg 2 Unknown COMPLETE BLOOD COUNT 32826 MCHC 32.7 g/dL 2 Unknown COMPLETE BLOOD COUNT 23219 PLT 207 10e9/L 05/06/20 12 Unknown COMPLETE BLOOD COUNT 23260 MPV 10.2 fL 2 Unknown COMPLETE BLOOD COUNT 20101 SUSIE % 74.2 % 2 Unknown COMPLETE BLOOD COUNT 93059 LY % 12.8 % 2 Unknown COMPLETE BLOOD COUNT 95444 MON % 11.0 % 2 Unknown COMPLETE BLOOD COUNT 09598 EOS % 1.7 % 2 Unknown COMPLETE BLOOD COUNT 84235 BASO % 0.3 % 2 Unknown COMPLETE BLOOD COUNT 11892 RDW 13.7 % 2 Unknown COMPLETE BLOOD COUNT 07453 ABS SUSIE 5.79 10e9/L 012 Unknown COMPLETE BLOOD COUNT 16671 ABS LYMPH 1.00 10e9/L 012 Unknown COMPLETE BLOOD COUNT 32474 ABS MONO 0.86 10e9/L 012 Unknown COMPLETE BLOOD COUNT 80211 ABS EOS 0.13 10e9/L 012 Unknown COMPLETE BLOOD COUNT 85894 ABS BASO 0.02 10e9/L 012 Unknown COMPLETE BLOOD COUNT 30057 RDW-SD 44.4 fL 2 Unknown COMPREHENSIVE METABOLIC 54783 AST 13 U/L 2011 Unknown COMPREHENSIVE METABOLIC 99055 ALT 14 IU/L 2011 Unknown COMPREHENSIVE METABOLIC 45458 BUN 17 MG/DL 2011 Unknown COMPREHENSIVE METABOLIC 91379 ALBUMIN 4.5 GM/DL 2011 Unknown COMPREHENSIVE METABOLIC 75961 CHLORIDE 101 MMOL/L 05/06 Unknown COMPREHENSIVE METABOLIC 85238 BILI TOT 0.5 MG/DL 2011 Unknown COMPREHENSIVE METABOLIC 39964 ALK PHOS 42 U/L 2011 Unknown COMPREHENSIVE METABOLIC 71404 SODIUM 141 MMOL/L 05/06 Unknown COMPREHENSIVE METABOLIC 50014 CREATININE 1.02 MG/DL 04/24 Unknown COMPREHENSIVE METABOLIC 40665 CALCIUM 9.7 MG/DL 2011 Unknown COMPREHENSIVE METABOLIC 80076 POTASSIUM 4.6 MMOL/L 05/06 Unknown COMPREHENSIVE METABOLIC 47505 PROT TOT 6.5 GM/DL 2011 Unknown COMPREHENSIVE METABOLIC 04601 Glucose 139 MG/DL 2011 Unknown COMPREHENSIVE METABOLIC 36623 BICARB 29 MMOL/L 2011 Unknown COMPREHENSIVE METABOLIC 65948 ANION GAP 11 MEQ/L 2011 Unknown GFR CALC 6865382 GFR AA >60 ML/MIN 05/06/2012 Unknown GFR CALC 1963816 GFR NON-AA 54.0L ML/MIN 05/06/2012 Unkno wn GLYCOSYLATED HEMOGLOBIN TEST 92229 A1C HPLC 76031-0 6.6 % 1 09/30/2010 Unknown FREE T4 71790 FREE T4 1.00 NG/DL 07/26/2011 Unknown LIPID GROUP 64181 HDL TEST 40 MG/DL 07/26/2011 Unknown LIPID GROUP 07648 TRIG 136 MG/DL 07/26/2011 Unknown LIPID GROUP 03076 TEST LDL 126 MG/DL 07/26/2011 Unknown LIPID GROUP 28510 CHOL 193 MG/DL 07/26/2011 Unknown LIPID GROUP 58713 RCHOL/HDL 4.83 RATIO 07/26/2011 Unknow n COMPREHENSIVE METABOLIC 04963 AST 15 U/L 2010 Unknown COMPREHENSIVE METABOLIC 65723 ALT 13 IU/L 2010 Unknown COMPREHENSIVE METABOLIC 25003 BUN 17 MG/DL 2010 Unknown COMPREHENSIVE METABOLIC 90803 ALBUMIN 4.4 GM/DL 2010 Unknown COMPREHENSIVE METABOLIC 24961 CHLORIDE 102 MMOL/L 07/26 Unknown COMPREHENSIVE METABOLIC 98847 BILI TOT 0.5 MG/DL 2010 Unknown COMPREHENSIVE METABOLIC 61922 ALK PHOS 54 U/L 2010 Unknown COMPREHENSIVE METABOLIC 34014 SODIUM 138 MMOL/L 07/26 Unknown COMPREHENSIVE METABOLIC 44955 CREATININE 0.95 MG/DL 10/2010 Unknown COMPREHENSIVE METABOLIC 53051 CALCIUM 9.3 MG/DL 2010 Unknown COMPREHENSIVE METABOLIC 50113 POTASSIUM 4.3 MMOL/L 07/26 Unknown COMPREHENSIVE METABOLIC 94548 PROT TOT 6.7 GM/DL 2010 Unknown COMPREHENSIVE METABOLIC 07167 Glucose 116 MG/DL 2010 Unknown COMPREHENSIVE METABOLIC 56166 BICARB 28 MMOL/L 2010 Unknown COMPREHENSIVE METABOLIC 56398 ANION GAP 8 MEQ/L 2010 Unknown PSA EQUIMOLAR JONATAN 49663 PSA EQ 1.01 NG/ML 1 Unknown COMPLETE BLOOD COUNT 56698 WBC 6.4 10e9/L 07/26/20 11 Unknown COMPLETE BLOOD COUNT 99168 RBC 4.43 10e12/L 2010 Unknown COMPLETE BLOOD COUNT 65143 HGB 13.2 g/dL 1 Unknown COMPLETE BLOOD COUNT 76111 HCT DET 39.3 % 1 Unknown COMPLETE BLOOD COUNT 21761 MCV 88.7 fL 1 Unknown COMPLETE BLOOD COUNT 46222 MCH 29.8 pg 1 Unknown COMPLETE BLOOD COUNT 31526 MCHC 33.6 g/dL 1 Unknown COMPLETE BLOOD COUNT 13999 PLT 226 10e9/L 07/26/20 11 Unknown COMPLETE BLOOD COUNT 65824 MPV 9.9 fL 1 Unknown COMPLETE BLOOD COUNT 33808 SUSIE % 65.4 % 1 Unknown COMPLETE BLOOD COUNT 71082 LY % 19.7 % 1 Unknown COMPLETE BLOOD COUNT 70548 MON % 10.8 % 1 Unknown COMPLETE BLOOD COUNT 21617 EOS % 3.6 % 1 Unknown COMPLETE BLOOD COUNT 56954 BASO % 0.5 % 1 Unknown COMPLETE BLOOD COUNT 32981 RDW 13.2 % 1 Unknown COMPLETE BLOOD COUNT 53197 ABS SUSIE 4.19 10e9/L 011 Unknown COMPLETE BLOOD COUNT 00273 ABS LYMPH 1.26 10e9/L 011 Unknown COMPLETE BLOOD COUNT 09066 ABS MONO 0.69 10e9/L 011 Unknown COMPLETE BLOOD COUNT 97214 ABS EOS 0.23 10e9/L 011 Unknown COMPLETE BLOOD COUNT 14237 ABS BASO 0.03 10e9/L 011 Unknown COMPLETE BLOOD COUNT 01184 RDW-SD 41.7 fL 1 Unknown THYROID STIMULATING HORMONE 18361 TSH 1.345 uIU/ML 07/26/2011 Unknown GFR CALC 2257619 GFR AA >60 ML/MIN 07/26/2011 Unknown GFR CALC 1990369 GFR NON-AA >60 ML/MIN 07/26/2011 Unknown BRAIN NATRIURETIC PEPTIDE(BNP) 28686 BRAIN PEP 23 pg/mL 01/19/2011 Unknown CANCEL 0215579 CANCEL FOOTNOTE 01/18/2011 Unknown TESTOSTERONE TOTAL 25679 TESTOS TO 138 NG/DL 12/19/2010 Unknown COMPLETE BLOOD COUNT 41205 WBC 8.4 10e9/L 12/08/19 11 Unknown COMPLETE BLOOD COUNT 15159 RBC 4.40 10e12/L 2010 Unknown COMPLETE BLOOD COUNT 94290 HGB 13.3 g/dL 1 Unknown COMPLETE BLOOD COUNT 50925 HCT DET 39.8 % 1 Unknown COMPLETE BLOOD COUNT 29832 MCV 90.5 fL 1 Unknown COMPLETE BLOOD COUNT 12404 MCH 30.2 pg 1 Unknown COMPLETE BLOOD COUNT 18205 MCHC 33.4 g/dL 1 Unknown COMPLETE BLOOD COUNT 36820 PLT 201 10e9/L 12/08/19 11 Unknown COMPLETE BLOOD COUNT 07982 MPV 10.6 fL 1 Unknown COMPLETE BLOOD COUNT 86522 SUSIE % 72.5 % 1 Unknown COMPLETE BLOOD COUNT 30692 LY % 14.8 % 1 Unknown COMPLETE BLOOD COUNT 61002 MON % 10.6 % 1 Unknown COMPLETE BLOOD COUNT 52803 EOS % 1.7 % 1 Unknown COMPLETE BLOOD COUNT 38626 BASO % 0.4 % 1 Unknown COMPLETE BLOOD COUNT 40355 RDW 13.7 % 1 Unknown COMPLETE BLOOD COUNT 77218 ABS SUSIE 6.09 10e9/L 011 Unknown COMPLETE BLOOD COUNT 77237 ABS LYMPH 1.24 10e9/L 011 Unknown COMPLETE BLOOD COUNT 41283 ABS MONO 0.89 10e9/L 011 Unknown COMPLETE BLOOD COUNT 00630 ABS EOS 0.14 10e9/L 011 Unknown COMPLETE BLOOD COUNT 60865 ABS BASO 0.03 10e9/L 011 Unknown COMPLETE BLOOD COUNT 18355 RDW-SD 44.0 fL 1 Unknown LIPID GROUP 04051 HDL TEST 40 MG/DL 12/07/2010 Unknown LIPID GROUP 97335 TRIG 383 MG/DL 12/07/2010 Unknown LIPID GROUP 84819 TEST LDL 82 MG/DL 12/07/2010 Unknown LIPID GROUP 57246 CHOL 199 MG/DL 12/07/2010 Unknown LIPID GROUP 12423 RCHOL/HDL 4.98 RATIO 12/07/2010 Unknow n GFR CALC 4382124 GFR AA >60 ML/MIN 12/07/2010 Unknown GFR CALC 0513345 GFR NON-AA >60 ML/MIN 12/07/2010 Unknown COMPREHENSIVE METABOLIC 44737 AST 29 U/L 2010 Unknown COMPREHENSIVE METABOLIC 72684 ALT 39 IU/L 2010 Unknown COMPREHENSIVE METABOLIC 19947 BUN 17 MG/DL 2010 Unknown COMPREHENSIVE METABOLIC 71401 ALBUMIN 4.9 GM/DL 2010 Unknown COMPREHENSIVE METABOLIC 80472 CHLORIDE 100 MMOL/L 12/07 Unknown COMPREHENSIVE METABOLIC 77671 BILI TOT 0.3 MG/DL 2010 Unknown COMPREHENSIVE METABOLIC 33992 ALK PHOS 53 U/L 2010 Unknown COMPREHENSIVE METABOLIC 75208 SODIUM 137 MMOL/L 12/07 Unknown COMPREHENSIVE METABOLIC 81251 CREATININE 0.98 MG/DL 11/22 Unknown COMPREHENSIVE METABOLIC 68598 CALCIUM 9.5 MG/DL 2010 Unknown COMPREHENSIVE METABOLIC 29287 POTASSIUM 4.3 MMOL/L 12/07 Unknown COMPREHENSIVE METABOLIC 79591 PROT TOT 6.6 GM/DL 2010 Unknown COMPREHENSIVE METABOLIC 29364 Glucose 176 MG/DL 2010 Unknown COMPREHENSIVE METABOLIC 39571 BICARB 28 MMOL/L 2010 Unknown COMPREHENSIVE METABOLIC 51249 ANION GAP 9 MEQ/L 2010 Unknown PSA EQUIMOLAR JONATAN 25027 PSA EQ 0.65 NG/ML 1 Unknown HEMOGLOBIN A1C (GLYCOSYLATED) 02801 A1C HPLC 17606-8 6.9 % 12/07/2010 Unknown Procedures Procedure Codes Date THER/PROPH/DIAG INJ SC/IM CPT-4: 14472 12/25/2019 METHYLPREDNISOLONE INJECTION CPT-4: J2930 12/25/2019 FLU VACC PRSV FREE INC ANTIG 65 AND OLDER CPT-4: 05186 08/07/2019 FLU VACC PRSV FREE INC ANTIG 65 AND OLDER CPT-4: 62595 08/07/2019 ADMIN INFLUENZA VIRUS VAC CPT-4: G0008 08/07/2019 THER/PROPH/DIAG INJ SC/IM CPT-4: 31755 07/14/2019 METHYLPREDNISOLONE INJECTION CPT-4: J2930 07/14/2019 ROUTINE VENIPUNCTURE CPT-4: 98569 06/17/2019 ASSAY THYROID STIM HORMONE CPT-4: 37766 06/17/2019 COMPREHEN METABOLIC PANEL CPT-4: 60700 06/17/2019 COMPLETE CBC W/AUTO DIFF WBC CPT-4: 91564 06/17/2019 ASSAY OF IRON CPT-4: 19088 06/17/2019 VITAMIN B-12 CPT-4: 99776 06/17/2019 RBC SED RATE AUTOMATED CPT-4: 31278 06/17/2019 THER/PROPH/DIAG INJ SC/IM CPT-4: 12649 06/10/2019 THER/PROPH/DIAG INJ SC/IM CPT-4: 04515 06/02/2019 THER/PROPH/DIAG INJ SC/IM CPT-4: 28752 05/27/2019 THER/PROPH/DIAG INJ SC/IM CPT-4: 57271 05/12/2019 ROUTINE VENIPUNCTURE CPT-4: 32474 05/08/2019 COMPREHEN METABOLIC PANEL CPT-4: 91105 05/08/2019 COMPLETE CBC W/AUTO DIFF WBC CPT-4: 29364 05/08/2019 A1C HPLC CPT-4: 94120 05/08/2019 VITAMIN D TOTAL (25 HYDROXY) CPT-4: 01299 05/08/2019 ASSAY OF IRON CPT-4: 87242 05/08/2019 ASSAY OF FERRITIN CPT-4: 69594 05/08/2019 VITAMIN B-12 CPT-4: 04989 05/08/2019 THER/PROPH/DIAG INJ SC/IM CPT-4: 33709 03/21/2019 METHYLPREDNISOLONE INJECTION CPT-4: J2930 03/21/2019 THER/PROPH/DIAG INJ SC/IM CPT-4: 09030 03/13/2019 METHYLPREDNISOLONE INJECTION CPT-4: J2930 03/13/2019 THER/PROPH/DIAG INJ SC/IM CPT-4: 03800 12/25/2018 METHYLPREDNISOLONE INJECTION CPT-4: J2930 12/25/2018 ROUTINE VENIPUNCTURE CPT-4: 53132 12/09/2018 ASSAY OF FREE THYROXINE CPT-4: 15482 12/09/2018 ASSAY THYROID STIM HORMONE CPT-4: 59321 12/09/2018 COMPREHEN METABOLIC PANEL CPT-4: 66470 12/09/2018 COMPLETE CBC W/AUTO DIFF WBC CPT-4: 79267 12/09/2018 LIPID PANEL CPT-4: 31039 12/09/2018 A1C HPLC CPT-4: 71768 12/09/2018 PRESCRIP TRANSMIT VIA ERX SY CPT-4: G8553 08/21/2018 PRESCRIP TRANSMIT VIA ERX SY CPT-4: G8553 08/07/2018 THER/PROPH/DIAG INJ SC/IM CPT-4: 33917 05/23/2018 METHYLPREDNISOLONE INJECTION CPT-4: J2930 05/23/2018 PRESCRIP TRANSMIT VIA ERX SY CPT-4: G8553 05/02/2018 THER/PROPH/DIAG INJ SC/IM CPT-4: 79609 04/29/2018 METHYLPREDNISOLONE INJECTION CPT-4: J2930 04/29/2018 DEXAMETHASONE SODIUM PHOS CPT-4: J1100 04/22/2018 THER/PROPH/DIAG INJ SC/IM CPT-4: 44090 04/22/2018 TRIAMCINOLONE ACET INJ NOS CPT-4: J3301 04/22/2018 PRESCRIP TRANSMIT VIA ERX SY CPT-4: G8553 04/22/2018 PRESCRIP TRANSMIT VIA ERX SY CPT-4: G8553 01/23/2018 URINALYSIS NONAUTO W/O SCOPE CPT-4: 29690 01/02/2018 URINE CULTURE/ COLONY COUNT CPT-4: 12873 01/02/2018 PRESCRIP TRANSMIT VIA ERX SY CPT-4: G8553 01/02/2018 PRESCRIP TRANSMIT VIA ERX SY CPT-4: G8553 12/28/2017 PRESCRIP TRANSMIT VIA ERX SY CPT-4: G8553 12/21/2017 CEFTRIAXONE SODIUM INJECTION CPT-4: J0696 12/17/2017 THER/PROPH/DIAG INJ SC/IM CPT-4: 77311 12/17/2017 THER/PROPH/DIAG INJ SC/IM CPT-4: 28440 12/17/2017 TRIAMCINOLONE ACET INJ NOS CPT-4: J3301 12/17/2017 PRESCRIP TRANSMIT VIA ERX SY CPT-4: G8553 12/17/2017 DRAIN/INJECT JOINT/BURSA CPT-4: 81087 12/11/2017 TRIAMCINOLONE ACET INJ NOS CPT-4: J3301 12/11/2017 DEXAMETHASONE SODIUM PHOS CPT-4: J1100 12/11/2017 DESTRUCT PREMALG LESION (Cryosurgery) CPT-4: 48654 PRESCRIP TRANSMIT VIA ERX SY CPT-4: G8553 10/17/2017 DEXAMETHASONE SODIUM PHOS CPT-4: J1100 08/02/2017 THER/PROPH/DIAG INJ SC/IM CPT-4: 55334 08/02/2017 TRIAMCINOLONE ACET INJ NOS CPT-4: J3301 08/02/2017 PRESCRIP TRANSMIT VIA ERX SY CPT-4: G8553 08/02/2017 PNEUMOCOCCAL VACC 23 OLIVIA IM CPT-4: 69969 07/24/2017 ADMIN PNEUMOCOCCAL VACCINE CPT-4: G0009 07/24/2017 ALBUTEROL NON-COMP UNIT CPT-4: J7613 07/02/2017 AIRWAY INHALATION TREATMENT CPT-4: 13311 07/02/2017 THER/PROPH/DIAG INJ SC/IM CPT-4: 01020 07/02/2017 METHYLPREDNISOLONE INJECTION CPT-4: J2930 07/02/2017 PRESCRIP TRANSMIT VIA ERX SY CPT-4: G8553 05/29/2017 ROUTINE VENIPUNCTURE CPT-4: 49505 04/17/2017 ASSAY OF IRON CPT-4: 60643 04/17/2017 VITAMIN B-12 CPT-4: 03889 04/17/2017 COMPREHEN METABOLIC PANEL CPT-4: 67260 04/17/2017 COMPLETE CBC W/AUTO DIFF WBC CPT-4: 32269 04/17/2017 ASSAY OF FERRITIN CPT-4: 92357 04/17/2017 ASSAY THYROID STIM HORMONE CPT-4: 63970 04/17/2017 A1C HPLC CPT-4: 36310 04/17/2017 DRAIN/INJECT JOINT/BURSA CPT-4: 62074 02/01/2017 TRIAMCINOLONE ACET INJ NOS CPT-4: J3301 02/01/2017 DEXAMETHASONE SODIUM PHOS CPT-4: J1100 02/01/2017 ROUTINE VENIPUNCTURE CPT-4: 42000 12/27/2016 COMPLETE CBC W/AUTO DIFF WBC CPT-4: 18945 12/27/2016 ROUTINE VENIPUNCTURE CPT-4: 06857 12/21/2016 COMPLETE CBC W/AUTO DIFF WBC CPT-4: 09212 12/21/2016 ROUTINE VENIPUNCTURE CPT-4: 07842 12/12/2016 COMPLETE CBC W/AUTO DIFF WBC CPT-4: 29688 12/12/2016 PRESCRIP TRANSMIT VIA ERX SY CPT-4: G8553 10/31/2016 PRESCRIP TRANSMIT VIA ERX SY CPT-4: G8553 10/03/2016 PRESCRIP TRANSMIT VIA ERX SY CPT-4: G8553 09/04/2016 DESTRUCT PREMALG LESION (Cryosurgery) CPT-4: 02833 DESTRUCT PREMALG LES 2-14 CPT-4: 37097 08/22/2016 PRESCRIP TRANSMIT VIA ERX SY CPT-4: G8553 08/10/2016 PRESCRIP TRANSMIT VIA ERX SY CPT-4: G8553 07/06/2016 FLU VACC PRSV FREE INC ANTIG 65 AND OLDER CPT-4: 50484 06/13/2016 PNEUMOCOCCAL VACC 13 OLIVIA IM CPT-4: 39393 06/13/2016 ADMIN INFLUENZA VIRUS VAC CPT-4: G0008 06/13/2016 ADMIN PNEUMOCOCCAL VACCINE CPT-4: G0009 06/13/2016 CERUM REMOVAL CPT-4: 41262 04/05/2016 PRESCRIP TRANSMIT VIA ERX SY CPT-4: G8553 04/03/2016 ROUTINE VENIPUNCTURE CPT-4: 94334 03/06/2016 ASSAY OF FREE THYROXINE CPT-4: 74973 03/06/2016 ASSAY THYROID STIM HORMONE CPT-4: 52424 03/06/2016 COMPREHEN METABOLIC PANEL CPT-4: 08649 03/06/2016 COMPLETE CBC W/AUTO DIFF WBC CPT-4: 65934 03/06/2016 LIPID PANEL CPT-4: 09268 03/06/2016 ASSAY OF PSA TOTAL CPT-4: 01110 03/06/2016 TESTOSTERONE TOTAL - MALE CPT-4: 28853 03/06/2016 A1C HPLC CPT-4: 45100 03/06/2016 ASSAY OF IRON CPT-4: 12942 03/06/2016 VITAMIN B-12 CPT-4: 73960 03/06/2016 INJ TENDON SHEATH/LIGAMENT CPT-4: 73109 02/17/2016 TRIAMCINOLONE ACET INJ NOS CPT-4: J3301 02/17/2016 DEXAMETHASONE SODIUM PHOS CPT-4: J1100 02/17/2016 PRESCRIP TRANSMIT VIA ERX SY CPT-4: G8553 01/31/2016 PRESCRIP TRANSMIT VIA ERX SY CPT-4: G8553 12/30/2015 PRESCRIP TRANSMIT VIA ERX SY CPT-4: G8553 12/06/2015 PRESCRIP TRANSMIT VIA ERX SY CPT-4: G8553 11/15/2015 PPPS, subseq visit CPT-4: G0439 10/05/2015 MICROALBUMIN QUANTITATIVE CPT-4: 46010 10/05/2015 PROTEIN/CREAT URINE WITH RATIO CPT-4: 06542|30176 6 ROUTINE VENIPUNCTURE CPT-4: 54985 07/01/2015 ASSAY OF FREE THYROXINE CPT-4: 50921 07/01/2015 ASSAY THYROID STIM HORMONE CPT-4: 46339 07/01/2015 COMPLETE CBC W/AUTO DIFF WBC CPT-4: 59035 07/01/2015 LIPID PANEL CPT-4: 23680 07/01/2015 ASSAY OF PSA TOTAL CPT-4: 95142 07/01/2015 AEROBIC WOUND CULTURE & STN CPT-4: 48556 06/28/2015 PRESCRIP TRANSMIT VIA ERX SY CPT-4: G8553 06/28/2015 AEROBIC WOUND CULTURE & STN CPT-4: 41864 06/03/2015 PRESCRIP TRANSMIT VIA ERX SY CPT-4: G8553 06/03/2015 ROUTINE VENIPUNCTURE CPT-4: 17390 06/01/2015 COMPREHEN METABOLIC PANEL CPT-4: 24535 06/01/2015 A1C HPLC CPT-4: 44076 06/01/2015 COMPREHEN METABOLIC PANEL CPT-4: 80881 02/25/2015 A1C HPLC CPT-4: 99143 02/25/2015 DESTRUCT PREMALG LESION (Cryosurgery) CPT-4: 78444 PROTEIN/CREAT URINE WITH RATIO CPT-4: 09338|54860 5 MICROALBUMIN QUANTITATIVE CPT-4: 03629 10/27/2014 INFLUENZA ASSAY W/OPTIC CPT-4: 29941 10/21/2014 PRESCRIP TRANSMIT VIA ERX SY CPT-4: G8553 10/06/2014 PRESCRIP TRANSMIT VIA ERX SY CPT-4: G8553 09/21/2014 PRESCRIP TRANSMIT VIA ERX SY CPT-4: G8553 09/02/2014 MICROALBUMIN QUANTITATIVE CPT-4: 53322 08/27/2014 PROTEIN/CREAT URINE WITH RATIO CPT-4: 78384|80157 4 PPPS, subseq visit CPT-4: G0439 08/10/2014 ROUTINE VENIPUNCTURE CPT-4: 37831 08/05/2014 ASSAY OF FREE THYROXINE CPT-4: 84029 08/05/2014 ASSAY THYROID STIM HORMONE CPT-4: 50750 08/05/2014 COMPREHEN METABOLIC PANEL CPT-4: 20804 08/05/2014 COMPLETE CBC W/AUTO DIFF WBC CPT-4: 82690 08/05/2014 LIPID PANEL CPT-4: 90314 08/05/2014 A1C HPLC CPT-4: 02830 08/05/2014 FLUZONE, 5ML (Medicare) CPT-4: Q2038 08/05/2014 ADMIN INFLUENZA VIRUS VAC CPT-4: G0008 08/05/2014 METHYLPREDNISOLONE 40 MG INJ CPT-4: J1030 12/16/2013 TRIAMCINOLONE ACET INJ NOS CPT-4: J3301 12/16/2013 DRAIN/INJECT JOINT/BURSA CPT-4: 16141 12/16/2013 PRESCRIP TRANSMIT VIA ERX SY CPT-4: G8553 10/09/2013 THER/PROPH/DIAG INJ SC/IM CPT-4: 14436 09/18/2013 METHYLPREDNISOLONE 40 MG INJ CPT-4: J1030 09/18/2013 TRIAMCINOLONE ACET INJ NOS CPT-4: J3301 09/18/2013 PRESCRIP TRANSMIT VIA ERX SY CPT-4: G8553 09/18/2013 PRESCRIP TRANSMIT VIA ERX SY CPT-4: G8553 08/13/2013 ROUTINE VENIPUNCTURE CPT-4: 91581 06/25/2013 ASSAY OF FREE THYROXINE CPT-4: 42545 06/25/2013 ASSAY THYROID STIM HORMONE CPT-4: 87133 06/25/2013 COMPREHEN METABOLIC PANEL CPT-4: 12926 06/25/2013 COMPLETE CBC W/AUTO DIFF WBC CPT-4: 67239 06/25/2013 LIPID PANEL CPT-4: 39313 06/25/2013 A1C GLYCOSYLATED HEMOGLOBIN TEST CPT-4: 94248 013 ROUTINE VENIPUNCTURE CPT-4: 73572 04/09/2013 COMPLETE CBC W/AUTO DIFF WBC CPT-4: 51756 04/09/2013 MYCOPLASMA ANTIBODY, IFA CPT-4: 58901F9 04/09/2013 ROUTINE VENIPUNCTURE CPT-4: 08008 02/11/2013 ASSAY OF FREE THYROXINE CPT-4: 74352 02/11/2013 ASSAY THYROID STIM HORMONE CPT-4: 47600 02/11/2013 COMPREHEN METABOLIC PANEL CPT-4: 79173 02/11/2013 COMPLETE CBC W/AUTO DIFF WBC CPT-4: 37553 02/11/2013 VITAMIN B 12 FOLIC ACID CPT-4: 14133|01022 02/11/2013 C-REACTIVE PROTEIN CPT-4: 78698 02/11/2013 A1C GLYCOSYLATED HEMOGLOBIN TEST CPT-4: 52315 013 ASSAY OF BLOOD/URIC ACID CPT-4: 02708 02/11/2013 CEFTRIAXONE SODIUM INJECTION CPT-4: J0696 01/31/2013 THER/PROPH/DIAG INJ SC/IM CPT-4: 98248 01/31/2013 THER/PROPH/DIAG INJ SC/IM CPT-4: 97444 01/31/2013 METHYLPREDNISOLONE 40 MG INJ CPT-4: J1030 01/31/2013 TRIAMCINOLONE ACET INJ NOS CPT-4: J3301 01/31/2013 ROUTINE VENIPUNCTURE CPT-4: 96607 09/19/2012 COMPREHEN METABOLIC PANEL CPT-4: 42932 09/19/2012 LIPID PANEL CPT-4: 55286 09/19/2012 A1C GLYCOSYLATED HEMOGLOBIN TEST CPT-4: 09565 012 PNEUMOCOCCAL VACC 23 OLIVIA IM CPT-4: 69109 07/10/2012 FLUZONE, 5ML (Medicare) CPT-4: Q2038 07/10/2012 ADMIN INFLUENZA VIRUS VAC CPT-4: G0008 07/10/2012 ADMIN PNEUMOCOCCAL VACCINE CPT-4: G0009 07/10/2012 ROUTINE VENIPUNCTURE CPT-4: 45151 05/06/2012 ASSAY OF FREE THYROXINE CPT-4: 19687 05/06/2012 ASSAY THYROID STIM HORMONE CPT-4: 19752 05/06/2012 COMPREHEN METABOLIC PANEL CPT-4: 46612 05/06/2012 COMPLETE CBC W/AUTO DIFF WBC CPT-4: 47867 05/06/2012 LIPID PANEL CPT-4: 32306 05/06/2012 A1C GLYCOSYLATED HEMOGLOBIN TEST CPT-4: 44056 012 IMMUNIZATION ADMIN CPT-4: 67225 02/05/2012 FLUZONE, 5ML (Medicare) CPT-4: Q2038 08/10/2011 ADMIN INFLUENZA VIRUS VAC CPT-4: G0008 08/10/2011 ROUTINE VENIPUNCTURE CPT-4: 08293 07/26/2011 ASSAY OF FREE THYROXINE CPT-4: 18688 07/26/2011 ASSAY THYROID STIM HORMONE CPT-4: 07889 07/26/2011 COMPREHEN METABOLIC PANEL CPT-4: 64781 07/26/2011 COMPLETE CBC W/AUTO DIFF WBC CPT-4: 57335 07/26/2011 LIPID PANEL CPT-4: 00914 07/26/2011 A1C GLYCOSYLATED HEMOGLOBIN TEST CPT-4: 09831 011 ASSAY OF PSA TOTAL CPT-4: 28021 07/26/2011 ROUTINE VENIPUNCTURE CPT-4: 90536 01/19/2011 ASSAY OF NATRIURETIC PEPTIDE CPT-4: 61908 01/19/2011 THER/PROPH/DIAG INJ SC/IM CPT-4: 35856 01/19/2011 CEFTRIAXONE SODIUM INJECTION CPT-4: J0696 01/19/2011 METHYLPREDNISOLONE INJECTION CPT-4: J2930 01/19/2011 THER/PROPH/DIAG INJ SC/IM CPT-4: 02501 01/19/2011 THER/PROPH/DIAG INJ SC/IM CPT-4: 53190 01/18/2011 CEFTRIAXONE SODIUM INJECTION CPT-4: J0696 01/18/2011 METHYLPREDNISOLONE INJECTION CPT-4: J2930 01/18/2011 THER/PROPH/DIAG INJ SC/IM CPT-4: 69767 01/18/2011 THER/PROPH/DIAG INJ SC/IM CPT-4: 92091 12/21/2010 TESTOSTERONE CYPIONAT 100 MG CPT-4: J1070 12/21/2010 ROUTINE VENIPUNCTURE CPT-4: 35884 12/19/2010 TESTOSTERONE TOTAL - MALE CPT-4: 39256 12/19/2010 ROUTINE VENIPUNCTURE CPT-4: 00603 12/07/2010 COMPLETE CBC W/AUTO DIFF WBC CPT-4: 68348 12/07/2010 COMPREHEN METABOLIC PANEL CPT-4: 64088 12/07/2010 LIPID PANEL CPT-4: 29731 12/07/2010 A1C GLYCOSYLATED HEMOGLOBIN TEST CPT-4: 22678 011 ASSAY OF PSA TOTAL CPT-4: 29396 12/07/2010 ROUTINE VENIPUNCTURE CPT-4: 99227 04/05/2010 PRESCRIP TRANSMIT VIA ERX SY CPT-4: G8553 04/05/2010 ROUTINE VENIPUNCTURE CPT-4: 18837 01/13/2010 METHYLPREDNISOLONE INJECTION CPT-4: J2930 12/22/2009 THER/PROPH/DIAG INJ SC/IM CPT-4: 64074 12/22/2009 THER/PROPH/DIAG INJ SC/IM CPT-4: 98804 12/22/2009 CEFTRIAXONE SODIUM INJECTION CPT-4: J0696 12/22/2009 ROUTINE VENIPUNCTURE CPT-4: 46963 12/22/2009 COMPLETE CBC W/AUTO DIFF WBC CPT-4: 40893 12/22/2009 RBC SED RATE, AUTOMATED CPT-4: 01992 12/22/2009 RPR FE/E/EN/L/M 20.1-30.0 CM CPT-4: 46687 12/22/2009 EKG FOR INITIAL PREVENT EXAM CPT-4: G0403 12/22/2009 THER/PROPH/DIAG INJ SC/IM CPT-4: 87320 12/16/2009 KETOROLAC TROMETHAMINE INJ CPT-4: J1885 12/16/2009 [...] 1: 126/68 Code: 8480-6 BMI: 30.2 Code: 57167-1 Heart Rate 1: 92 bpm Height: 6' Respiratory Rate: 22 bpm SpO2: 94% Tempera ture: 36.9 (C) / 98.5 (F) Weight: 223 lbs 08/21/2018 Blood Pressure 1: 160/70 Code: 8480-6 Heart Rate 1: 79 bpm Respiratory Rate: 20 bpm SpO2: 94% Temperature: 36.7 (C) / 98.0 (F) We ight: 226 lbs 8 oz 08/07/2018 Blood Pressure 1: 138/70 Code: 8480-6 BMI: 30.1 Code: 23976-3 Heart Rate 1: 80 bpm Height: 6' Respiratory Rate: 20 bpm SpO2: 94% Tempera ture: 36.9 (C) / 98.5 (F) Weight: 222 lbs 05/23/2018 Blood Pressure 1: 148/66 Code: 8480-6 BMI: 30.0 Code: 81116-4 Heart Rate 1: 96 bpm Height: 6' Respiratory Rate: 22 bpm SpO2: 94% Tempera ture: 37.3 (C) / 99.1 (F) Weight: 221 lbs 05/02/2018 Blood Pressure 1: 146/78 Code: 8480-6 BMI: 29.6 Code: 77234-8 Heart Rate 1: 78 bpm Height: 6' Respiratory Rate: 26 bpm SpO2: 94% Tempera ture: 35.7 (C) / 96.2 (F) Weight: 218 lbs 04/29/2018 Blood Pressure 1: 142/62 Code: 8480-6 BMI: 28.6 Code: 76310-6 Heart Rate 1: 82 bpm Height: 6' Respiratory Rate: 22 bpm SpO2: 98% Tempera ture: 36.4 (C) / 97.6 (F) Weight: 211 lbs 04/22/2018 Blood Pressure 1: 126/64 Code: 8480-6 BMI: 30.0 Code: 44094-9 Heart Rate 1: 96 bpm Height: 6' [...] 1: 144/78 Code: 8480-6 BMI: 30.7 Code: 52553-2 Heart Rate 1: 92 bpm Height: 6' Respiratory Rate: 28 bpm SpO2: 94% Tempera ture: 36.9 (C) / 98.4 (F) Weight: 226 lbs 12/28/2017 Blood Pressure 1: 136/80 Code: 8480-6 Heart Rate 1: 92 bpm Respiratory Rate: 28 bpm SpO2: 94% Temperature: 36.7 (C) / 98.1 (F) 12/21/2017 Blood Pressure 1: 146/84 Code: 8480-6 BMI: 31.1 Code: 92306-3 Heart Rate 1: 84 bpm Height: 6' [...] 1: 142/64 Code: 8480-6 BMI: 31.3 Code: 54241-2 Heart Rate 1: 98 bpm Height: 6' Respiratory Rate: 24 bpm SpO2: 94% Tempera ture: 36.4 (C) / 97.6 (F) Weight: 231 lbs 10/17/2017 Blood Pressure 1: 140/68 Code: 8480-6 BMI: 31.7 Code: 07640-7 Heart Rate 1: 88 bpm Height: 6' Respiratory Rate: 20 bpm SpO2: 94% Tempera ture: 36.8 (C) / 98.3 (F) Weight: 234 lbs 08/02/2017 Blood Pressure 1: 142/80 Code: 8480-6 BMI: 31.1 Code: 42299-5 Heart Rate 1: 86 bpm Height: 6' Respiratory Rate: 20 bpm SpO2: 90% Tempera ture: 35.9 (C) / 96.7 (F) Weight: 229 lbs 07/02/2017 Blood Pressure 1: 146/64 Code: 8480-6 BMI: 29.6 Code: 77830-4 Heart Rate 1: 96 bpm Height: 6' Respiratory Rate: 20 bpm Temperature: 36 .4 (C) / 97.6 (F) Weight: 218 lbs 05/29/2017 Blood Pressure 1: 152/68 Code: 8480-6 BMI: 31.5 Code: 33149-7 Heart Rate 1: 100 bpm Height: 6' Respiratory Rate: 20 bpm SpO2: 92% Tempera ture: 36.9 (C) / 98.4 (F) Weight: 232 lbs 02/01/2017 Blood Pressure 1: 146/64 Code: 8480-6 BMI: 30.7 Code: 53802-8 Heart Rate 1: 76 bpm Height: 6' Respiratory Rate: 20 bpm SpO2: 95% Tempera ture: 36.8 (C) / 98.2 (F) Weight: 226 lbs 01/29/2017 Blood Pressure 1: 146/78 Code: 8480-6 Heart Rate 1: 84 bpm Respiratory Rate: 20 bpm SpO2: 96% Temperature: 36.1 (C) / 97.0 (F) We ight: 226 lbs 12/21/2016 Blood Pressure 1: 126/60 Code: 8480-6 BMI: 30.8 Code: 91956-4 Heart Rate 1: 88 bpm Height: 6' Respiratory Rate: 22 bpm SpO2: 94% Tempera ture: 36.7 (C) / 98.0 (F) Weight: 227 lbs 12/14/2016 Blood Pressure 1: 126/70 Code: 8480-6 BMI: 29.8 Code: 43799-2 Heart Rate 1: 92 bpm Height: 6' Respiratory Rate: 22 bpm SpO2: 93% Tempera ture: 36.8 (C) / 98.2 (F) Weight: 220 lbs 11/14/2016 Blood Pressure 1: 128/62 Code: 8480-6 Heart Rate 1: 100 bpm Respiratory Rate: 20 bpm SpO2: 96% Temperature: 36.6 (C) / 97.8 (F) We ight: 220 lbs 10/31/2016 Blood Pressure 1: 142/60 Code: 8480-6 BMI: 30.1 Code: 00079-5 Heart Rate 1: 112 bpm Height: 6' Respiratory Rate: 24 bpm SpO2: 93% Tempera ture: 37.1 (C) / 98.7 (F) Weight: 222 lbs 10/03/2016 Blood Pressure 1: 136/78 Code: 8480-6 Heart Rate 1: 106 bpm Respiratory Rate: 24 bpm SpO2: 93% Temperature: 36.6 (C) / 97.8 (F) We ight: 221 lbs 09/04/2016 Blood Pressure 1: 112/44 Code: 8480-6 BMI: 30.1 Code: 06877-3 Heart Rate 1: 90 bpm Height: 6' Respiratory Rate: 20 bpm SpO2: 93% Tempera ture: 36.6 (C) / 97.9 (F) Weight: 222 lbs 08/22/2016 Blood Pressure 1: 142/68 Code: 8480-6 BMI: 30.4 Code: 74610-0 Heart Rate 1: 100 bpm Height: 6' Respiratory Rate: 24 bpm SpO2: 93% Tempera ture: 36.7 (C) / 98.1 (F) Weight: 224 lbs 08/10/2016 Blood Pressure 1: 134/60 Code: 8480-6 BMI: 30.2 Code: 37878-4 Heart Rate 1: 76 bpm Height: 6' [...] 1: 122/72 Code: 8480-6 BMI: 30.7 Code: 12640-2 Heart Rate 1: 96 bpm Height: 6' Respiratory Rate: 22 bpm SpO2: 96% Tempera ture: 35.9 (C) / 96.7 (F) Weight: 226 lbs 04/03/2016 Blood Pressure 1: 146/64 Code: 8480-6 BMI: 30.8 Code: 49249-9 Heart Rate 1: 76 bpm Height: 6' Respiratory Rate: 20 bpm Temperature: 36 .8 (C) / 98.2 (F) Weight: 227 lbs 03/02/2016 Blood Pressure 1: 148/60 Code: 8480-6 BMI: 31.1 Code: 38607-1 Heart Rate 1: 80 bpm Height: 6' Respiratory Rate: 22 bpm SpO2: 94% Tempera ture: 36.6 (C) / 97.8 (F) Weight: 229 lbs 02/17/2016 Blood Pressure 1: 132/60 Code: 8480-6 BMI: 31.3 Code: 15582-7 Heart Rate 1: 80 bpm Height: 6' Respiratory Rate: 20 bpm Temperature: 36 .9 (C) / 98.4 (F) Weight: 231 lbs 02/14/2016 Blood Pressure 1: 126/70 Code: 8480-6 BMI: 31.3 Code: 86649-2 Heart Rate 1: 80 bpm Height: 6' Respiratory Rate: 24 bpm SpO2: 95% Tempera ture: 36.9 (C) / 98.5 (F) Weight: 231 lbs 01/31/2016 Blood Pressure 1: 136/60 Code: 8480-6 Heart Rate 1: 76 bpm Respiratory Rate: 22 bpm Temperature: 37.0 (C) / 98.6 (F) Weight: 230 lbs 12/30/2015 Blood Pressure 1: 128/58 Code: 8480-6 BMI: 31.2 Code: 42887-8 Heart Rate 1: 80 bpm Height: 6' Respiratory Rate: 20 bpm Temperature: 36 .8 (C) / 98.2 (F) Weight: 230 lbs 12/16/2015 Blood Pressure 1: 122/60 Code: 8480-6 BMI: 32.0 Code: 01188-6 Heart Rate 1: 84 bpm Height: 6' Respiratory Rate: 24 bpm Temperature: 37 .1 (C) / 98.7 (F) Weight: 236 lbs 12/06/2015 Blood Pressure 1: 162/74 Code: 8480-6 BMI: 32.5 Code: 74120-4 Heart Rate 1: 90 bpm Height: 6' Respiratory Rate: 20 bpm SpO2: 96% Tempera ture: 36.4 (C) / 97.6 (F) Weight: 240 lbs 11/15/2015 Blood Pressure 1: 166/80 Code: 8480-6 BMI: 32.4 Code: 14993-4 Heart Rate 1: 92 bpm Height: 6' Respiratory Rate: 28 bpm Temperature: 36 .5 (C) / 97.7 (F) Weight: 239 lbs 10/05/2015 Blood Pressure 1: 146/76 Code: 8480-6 BMI: 32.4 Code: 86807-2 Heart Rate 1: 88 bpm Height: 6' Respiratory Rate: 28 bpm Temperature: 37 .1 (C) / 98.7 (F) Weight: 239 lbs 07/22/2015 Blood Pressure 1: 144/68 Code: 8480-6 BMI: 31.9 Code: 81454-0 Heart Rate 1: 88 bpm Height: 6' [...] 1: 142/64 Code: 8480-6 BMI: 32.1 Code: 75758-7 Heart Rate 1: 80 bpm Height: 6' Respiratory Rate: 18 bpm Temperature: 36 .4 (C) / 97.6 (F) Weight: 237 lbs 06/07/2015 Blood Pressure 1: 164/58 Code: 8480-6 BMI: 32.1 Code: 99062-9 Heart Rate 1: 88 bpm Height: 6' Respiratory Rate: 20 bpm Temperature: 36 .6 (C) / 97.9 (F) Weight: 237 lbs 06/03/2015 Blood Pressure 1: 152/64 Code: 8480-6 BMI: 32.1 Code: 39597-7 Heart Rate 1: 96 bpm Height: 6' Respiratory Rate: 20 bpm Temperature: 37 .4 (C) / 99.3 (F) Weight: 237 lbs 06/01/2015 Blood Pressure 1: 136/70 Code: 8480-6 BMI: 31.7 Code: 23919-0 Heart Rate 1: 72 bpm Height: 6' Respiratory Rate: 22 bpm SpO2: 94% Tempera ture: 36.6 (C) / 97.9 (F) Weight: 234 lbs 02/25/2015 Blood Pressure 1: 146/80 Code: 8480-6 BMI: 32.4 Code: 49463-5 Heart Rate 1: 84 bpm Height: 6' Respiratory Rate: 28 bpm Temperature: 36 .7 (C) / 98.0 (F) Weight: 239 lbs 10/27/2014 Blood Pressure 1: 168/70 Code: 8480-6 BMI: 32.0 Code: 37777-6 Heart Rate 1: 80 bpm Height: 6' Respiratory Rate: 30 bpm SpO2: 98% Tempera ture: 36.4 (C) / 97.6 (F) Weight: 236 lbs 10/21/2014 Blood Pressure 1: 152/58 Code: 8480-6 BMI: 32.1 Code: 37745-6 Heart Rate 1: 78 bpm Height: 6' Respiratory Rate: 20 bpm Temperature: 37 .8 (C) / 100.1 (F) Weight: 237 lbs 10/06/2014 Blood Pressure 1: 132/64 Code: 8480-6 BMI: 32.5 Code: 93544-6 Heart Rate 1: 88 bpm Height: 6' Respiratory Rate: 32 bpm SpO2: 94% Tempera ture: 36.8 (C) / 98.2 (F) Weight: 240 lbs 09/21/2014 Blood Pressure 1: 134/68 Code: 8480-6 BMI: 32.4 Code: 45225-7 Heart Rate 1: 96 bpm Height: 6' Respiratory Rate: 30 bpm Temperature: 36 .7 (C) / 98.1 (F) Weight: 239 lbs 09/08/2014 Blood Pressure 1: 128/74 Code: 8480-6 BMI: 32.4 Code: 05227-5 Heart Rate 1: 82 bpm Height: 6' Respiratory Rate: 28 bpm SpO2: 93% Tempera ture: 36.6 (C) / 97.8 (F) Weight: 239 lbs 09/02/2014 Blood Pressure 1: 164/78 Code: 8480-6 Heart Rate 1: 86 bpm Respiratory Rate: 22 bpm SpO2: 96% Temperature: 36.1 (C) / 97.0 (F) We ight: 239 lbs 08/10/2014 Blood Pressure 1: 152/60 Code: 8480-6 BMI: 32.8 Code: 29484-2 Heart Rate 1: 80 bpm Height: 6' [...] 1: 146/80 Code: 8480-6 BMI: 33.9 Code: 89004-2 Heart Rate 1: 80 bpm Height: 6' [...] 1: 148/78 Code: 8480-6 BMI: 30.5 Code: 85351-3 Heart Rate 1: 84 bpm Height: 6' Respiratory Rate: 28 bpm SpO2: 97% Tempera ture: 36.4 (C) / 97.5 (F) Weight: 225 lbs 08/06/2013 Blood Pressure 1: 158/70 Code: 8480-6 Heart Rate 1: 110 bpm Respiratory Rate: 22 bpm SpO2: 88% Temperature: 39.7 (C) / 103.4 (F) W eight: 07/16/2013 Blood Pressure 1: 148/82 Code: 8480-6 BMI: 31.9 Code: 59601-3 Heart Rate 1: 80 bpm Height: 6' Respiratory Rate: 20 bpm Temperature: 36 .6 (C) / 97.9 (F) Weight: 235 lbs 04/09/2013 Blood Pressure 1: 142/78 Code: 8480-6 BMI: 31.5 Code: 32428-8 Heart Rate 1: 88 bpm Height: 6' Respiratory Rate: 32 bpm SpO2: 95% Tempera ture: 37.0 (C) / 98.6 (F) Weight: 232 lbs 02/11/2013 Blood Pressure 1: 146/70 Code: 8480-6 Heart Rate 1: 88 bpm Respiratory Rate: 20 bpm Temperature: 36.8 (C) / 98.3 (F) Weight: 230 lbs 01/31/2013 Blood Pressure 1: 128/70 Code: 8480-6 BMI: 31.6 Code: 73229-5 Heart Rate 1: 84 bpm Height: 6' Respiratory Rate: 24 bpm SpO2: 92% Tempera ture: 36.7 (C) / 98.0 (F) Weight: 233 lbs 01/20/2013 Blood Pressure 1: 148/64 Code: 8480-6 BMI: 31.6 Code: 91100-5 Heart Rate 1: 68 bpm Height: 6' Temperature: 36.1 (C) / 97.0 (F) Weight: 233 lbs 12/19/2012 Blood Pressure 1: 128/68 Code: 8480-6 BMI: 32.0 Code: 54806-5 Heart Rate 1: 64 bpm Height: 6' Temperature: 36.7 (C) / 98.0 (F) Weight: 236 lbs 10/21/2012 Blood Pressure 1: 142/64 Code: 8480-6 BMI: 30.9 Code: 78789-1 Heart Rate 1: 74 bpm Height: 6' Temperature: 36.2 (C) / 97.1 (F) Weight: 228 lbs 09/18/2012 Blood Pressure 1: 126/60 Code: 8480-6 BMI: 31.3 Code: 65643-3 Heart Rate 1: 88 bpm Height: 6' Respiratory Rate: 20 bpm Temperature: 36 .5 (C) / 97.7 (F) Weight: 231 lbs 08/28/2012 Blood Pressure 1: 132/68 Code: 8480-6 BMI: 31.5 Code: 59867-3 Heart Rate 1: 92 bpm Height: 6' Respiratory Rate: 30 bpm SpO2: 94% Tempera ture: 37.1 (C) / 98.7 (F) Weight: 232 lbs 07/10/2012 Blood Pressure 1: 118/70 Code: 8480-6 BMI: 30.5 Code: 04295-6 Heart Rate 1: 72 bpm Height: 6' Respiratory Rate: 24 bpm SpO2: 96% Tempera ture: 36.7 (C) / 98.0 (F) Weight: 225 lbs 05/09/2012 Blood Pressure 1: 124/68 Code: 8480-6 BMI: 29.8 Code: 53671-5 Heart Rate 1: 72 bpm Height: 6' Respiratory Rate: 20 bpm Temperature: 36 .8 (C) / 98.2 (F) Weight: 220 lbs 10/02/2011 Blood Pressure 1: 140/82 Code: 8480-6 BMI: 30.7 Code: 12787-2 Heart Rate 1: 68 bpm Height: 6' Temperature: 36.7 (C) / 98.0 (F) Weight: 226 lbs 08/07/2011 Blood Pressure 1: 122/68 Code: 8480-6 BMI: 30.5 Code: 33452-8 Heart Rate 1: 72 bpm Height: 6' [...] 1: 140/78 Code: 8480-6 BMI: 31.9 Code: 09926-8 Heart Rate 1: 84 bpm Height: 6' Temperature: 36.6 (C) / 97.8 (F) Weight: 235 lbs 12/22/2009 Blood Pressure 1: 140/74 Code: 8480-6 BMI: 31.9 Code: 78197-9 Heart Rate 1: 94 bpm Height: 6' SpO2: 92% Temperature: 35.7 (C) / 96.2 (F) Weight: 235 lbs 12/13/2009 Blood Pressure 1: 146/80 Code: 8480-6 BMI: 33.0 Code: 94762-1 Heart Rate 1: 86 bpm Height: 6' [...] shot follow up 05/08/2019 follow up 04/07/2019 [facility] dizziness 03/24/2019 dizziness 03/21/2019 sore throat 03/13/2019 Patient finished zit hromax last night and has one dose of prednisone left follow up 03/10/2019 ER fwup---patient cu rrently taking zithromax, prednisone and breathing treatments every two hours spasms/spasticity 02/26/2019 follow up 02/13/2019 follow up 01/14/2019 [facility] follow up 12/25/2018 cough 12/09/2018 here for [...] up 07/02/2017 Patient recently ariel campos on [facility], but never picked up. He was also given prednisone/Zpack on 06/16/17 from walk in clinic. Patient is also in consult with Dr Benjamin. patient dc'd from hospital last week and reports that he is still taking the antibiotic that was prescribed to him (augmentin) and finished out the prednisone. 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 follow up 05/29/2017 Discuss Low [...] nightly. Patient has just been discharged from [place] with Pneumonia. Currently on Levaquin once daily. [...] would like evaluated follow up 06/13/2016 [facility] COPD w/exac 06/01/2016 Patient states chest tightness, shortness of breath, and fatigue have worsened in the last 2-3 weeks with exertion. otalgia 04/26/2016 cerumen 04/05/2016 Patient has been maximiliano ing ear drops follow up 04/03/2016 2mo fwup follow up 03/13/2016 Patient here for [facility] on medication education for insulin use lab [...] 02/25/2015 3mo fwup follow up 10/27/2014 [facility] cough 10/21/2014 follow up 10/06/2014 follow up 09/21/2014 [facility] follow up 09/08/2014 [facility] cough 09/02/2014 well man exam (65+ years) 08/10/2014 lab draw 08/05/2014 flu shot follow up 05/05/2014 6wk fwup follow up 03/24/2014 2wk fw shortness of breath 03/10/2014 shoulder pain 12/16/2013 Request back brace w hen working/lifting---chiropractor had recommended he get one to wear shortness of breath 10/09/2013 cough 09/18/2013 follow up 08/13/2013 [facility] cough 08/06/2013 follow up 07/16/2013 lab draw [...] 12/13/2009 Encounters Encounter Performer Location Codes Date ([id number]) OFFICE/OUTPATIENT VISIT EST Diagnosis: Chronic obstructive pulmonary disease, unspecified[ICD10: J44.9] Lita BARAKAT [facility] CPT-4: 87466 02/04/2020 ([id number]) OFFICE/OUTPATIENT VISIT EST Diagnosis: Chronic obstructive pulmonary disease with (acute) exacerbation[ICD10: J44.1] Lita Ramirez [facility] CPT- 4: 78759 12/25/2019 ([id number]) OFFICE/OUTPATIENT VISIT EST Diagnosis: Noncompliance with diabetes treatment[ICD10: Z91.19] Diagnosis: Insomnia[ICD10: G47.00] Diagnosis: Pain in right knee[ICD10: M25.561] Lita Barakat [facility] CPT-4: 38519 12/22/2019 ([id number]) OFFICE/OUTPATIENT VISIT EST Diagnosis: Chronic respiratory failure with hypercapnia[ICD10: J96.12] Diagnosis: Chronic airway obstruction, not elsewhere classified[ICD10: J44.9] Diagnosis: Basal cell carcinoma, face[ICD10: C44.310] [facility]: 02881 11/12/2019 ([id number]) OFFICE/OUTPATIENT VISIT EST Diagnosis: Chronic obstructive pulmonary disease, unspecified[ICD10: J44.9] Diagnosis: Right thyroid nodule[ICD10: E04.1] [facility] CPT-[facility]: 19823 09/11/2019 ([id number]) OFFICE/OUTPATIENT VISIT EST Diagnosis: Chronic bronchitis[ICD10: J42] 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] Diagnosis: FLU VACCINE[ICD10: Z23] Lita [facility] CPT-4: 82973 08/07/2019 ([id number]) OFFICE/OUTPATIENT VISIT EST Diagnosis: Chronic obstructive pulmonary disease with (acute) exacerbation[ICD10: J44.1] [facility] CPT- [facility]: 63855 07/14/2019 ([id number]) OFFICE/OUTPATIENT VISIT EST Diagnosis: Primary insomnia[ICD10: F51.01] Diagnosis: Dyspepsia and other specified disorders of function of stomach[ICD10: K31.89] [facility]: 14225 07/01/2019 ([id number]) OFFICE/OUTPATIENT VISIT EST Diagnosis: Epigastric pain[ICD10: R10.13] Diagnosis: Nausea[ICD10: R11.0] Diagnosis: Weight loss[ICD10: R63.4] [facility] CPT-4: 03805 06/24/2019 ([id number]) OFFICE/OUTPATIENT VISIT EST Diagnosis: Chronic obstructive pulmonary disease, unspecified[ICD10: J44.9] Diagnosis: Chronic insomnia[ICD10: F51.04] Diagnosis: Anemia[ICD10: D64.9] Diagnosis: Diplopia[ICD10: H53.2] Diagnosis: [place][ICD10: F30.9] [facility]: 41160 06/17/2019 ([id number]) NURSE/OUTPATIENT VISIT EST Diagnosis: Vitamin B12 deficiency anemia, unspecified[ICD10: D51.9] Lita BARAKAT [facility] CPT-4: 17886 06/10/2019 ([id number]) NURSE/OUTPATIENT VISIT EST Diagnosis: Vitamin B12 deficiency anemia, unspecified[ICD10: D51.9] Lita BARAKAT [facility] CPT-4: 76178 06/02/2019 ([id number]) NURSE/OUTPATIENT VISIT EST Diagnosis: Vitamin B12 deficiency anemia, unspecified[ICD10: D51.9] Lita BARAKAT [facility] CPT-4: 38219 05/27/2019 ([id number]) NURSE/OUTPATIENT VISIT EST Diagnosis: Vitamin B12 deficiency anemia, unspecified[ICD10: D51.9] Lita BARAKAT DO [facility] CPT-4: 86281 05/12/2019 ([id number]) OFFICE/OUTPATIENT VISIT EST Diagnosis: Restless legs syndrome[ICD10: G25.81] Diagnosis: Primary insomnia[ICD10: F51.01] Diagnosis: Anemia, unspecified[ICD10: D64.9] Diagnosis: Type 2 diabetes mellitus with hyperglycemia[ICD10: E11.65] Diagnosis: Vitamin D deficiency, unspecified[ICD10: E55.9] Lita BARAKAT DO [facility] CPT-4: 67986 05/08/2019 ([id number]) OFFICE/OUTPATIENT VISIT EST Diagnosis: Pain in right knee[ICD10: M25.561] Diagnosis: Restless legs syndrome[ICD10: G25.81] Diagnosis: Insomnia, unspecified[ICD10: G47.00] Lita BARAKAT DO [facility] CPT-4: 98385 04/07/2019 ([id number]) NO CHARGE Diagnosis: Chronic obstructive pulmonary disease with (acute) exacerbation[ICD10: J44.1] Diagnosis: Dizziness and giddiness[ICD10: R42] Diagnosis: Generalized anxiety disorder[ICD10: F41.1] Autumn BARAKAT DO [facility] CPT-4: 48133 03/24/2019 ([id number]) OFFICE/OUTPATIENT VISIT EST Diagnosis: Chronic obstructive pulmonary disease with (acute) exacerbation[ICD10: J44.1] Diagnosis: Dizziness and giddiness[ICD10: R42] Autumn BARAKAT DO [facility] CPT-4: 61395 03/21/2019 ([id number]) OFFICE/OUTPATIENT VISIT EST Diagnosis: Candidal stomatitis[ICD10: B37.0] Lita BARAKAT DO [facility] CPT-4: 74338 03/13/2019 ([id number]) OFFICE/OUTPATIENT VISIT EST Diagnosis: Chronic obstructive pulmonary disease with acute lower respiratory infection[ICD10: J44.0] Diagnosis: Restless legs syndrome[ICD10: G25.81] Lita BARAKAT DO [facility] CPT-4: 17114 03/10/2019 ([id number]) OFFICE/OUTPATIENT VISIT EST Diagnosis: Restless legs syndrome[ICD10: G25.81] Lita BARAKAT [facility] CPT-4: 92162 02/26/2019 ([id number]) OFFICE/OUTPATIENT VISIT EST Diagnosis: Primary insomnia[ICD10: F51.01] Diagnosis: Chronic obstructive pulmonary disease, unspecified[ICD10: J44.9] Lita BARAKAT DO [facility] CPT-4: 15071 02/13/2019 ([id number]) OFFICE/OUTPATIENT VISIT EST Diagnosis: Chronic obstructive pulmonary disease, unspecified[ICD10: J44.9] Diagnosis: Chronic respiratory failure with hypoxia[ICD10: J96.11] Diagnosis: Chronic respiratory failure with hypercapnia[ICD10: J96.12] Lita BARAKAT DO [facility] CPT-4: 00969 01/14/2019 ([id number]) OFFICE/OUTPATIENT VISIT EST Diagnosis: Chronic respiratory failure with hypoxia[ICD10: J96.11] Diagnosis: Patient's noncompliance with other medical treatment and regimen[ICD10: Z91.19] Diagnosis: Chronic obstructive pulmonary disease with (acute) exacerbation[ICD10: J44.1] Lita BARAKAT [facility] CPT- 4: 65636 12/25/2018 ([id number]) OFFICE/OUTPATIENT VISIT EST Diagnosis: Essential (primary) hypertension[ICD10: I10] Diagnosis: Type 2 diabetes mellitus with hyperglycemia[ICD10: E11.65] Diagnosis: Hypothyroidism, unspecified[ICD10: E03.9] Diagnosis: Hyperlipidemia, unspecified[ICD10: E78.5] Diagnosis: Acute recurrent maxillary sinusitis[ICD10: J01.01] Ines Lavonne ALYLINE DonovanFerdinand [facility] CPT-4: 90451 12/09/2018 ([id number]) OFFICE/OUTPATIENT VISIT EST Diagnosis: Candidal stomatitis[ICD10: B37.0] Lita Farnsworth DonovanFerdinand [facility] CPT-4: 06309 12/05/2018 ([id number]) OFFICE/OUTPATIENT VISIT EST Diagnosis: Acute recurrent sinusitis, unspecified[ICD10: J01.91] Diagnosis: Pain in right knee[ICD10: M25.561] Lita GONZALES DonovanFerdinand [facility] CPT-4: 61641 10/23/2018 ([id number]) OFFICE/OUTPATIENT VISIT EST Diagnosis: Restless legs syndrome[ICD10: G25.81] Diagnosis: Basal cell carcinoma of skin of scalp and neck[ICD10: C44.41] Lita Gianniirina CRAWFORD DonovanFerdinand [facility] CPT-4: 59788 08/21/2018 ([id number]) OFFICE/OUTPATIENT VISIT EST Diagnosis: Chronic obstructive pulmonary disease with acute lower respiratory infection[ICD10: J44.0] Diagnosis: Restless legs syndrome[ICD10: G25.81] Lita TRAN DonovanFerdinand [facility] CPT-4: 16419 08/07/2018 ([id number]) OFFICE/OUTPATIENT VISIT EST Diagnosis: Chronic obstructive pulmonary disease with acute lower respiratory infection[ICD10: J44.0] Lita CRAWFORD DonovanFerdinand [facility] CPT-4: 10235 05/23/2018 ([id number]) OFFICE/OUTPATIENT VISIT EST Diagnosis: Candidal stomatitis[ICD10: B37.0] Lita Farnsworth DonovanFerdinand [facility] CPT-4: 49862 05/02/2018 ([id number]) OFFICE/OUTPATIENT VISIT EST Diagnosis: Candidal stomatitis[ICD10: B37.0] Diagnosis: Other retention of urine[ICD10: R33.8] Diagnosis: Chronic obstructive pulmonary disease with acute lower respiratory infection[ICD10: J44.0] Autumn BARAKAT [facility] CPT-4: 22811 04/29/2018 ([id number]) OFFICE/OUTPATIENT VISIT EST Diagnosis: Chronic obstructive pulmonary disease with acute lower respiratory infection[ICD10: J44.0] Lita BARAKAT [facility] CPT-4: 81636 04/22/2018 ([id number]) OFFICE/OUTPATIENT VISIT EST Diagnosis: Unilateral primary osteoarthritis, right knee[ICD10: M17.11] Diagnosis: Squamous cell carcinoma of skin, unspecified[ICD10: C44.92] Lita BARAKAT [facility] CPT-4: 04436 01/28/2018 ([id number]) OFFICE/OUTPATIENT VISIT EST Diagnosis: Pain in right knee[ICD10: M25.561] Diagnosis: 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] Lita BARAKAT [facility] CPT-4: 00477 01/23/2018 ([id number]) OFFICE/OUTPATIENT VISIT EST Diagnosis: Urinary tract infection, site not specified[ICD10: N39.0] Diagnosis: Chronic obstructive pulmonary disease with acute lower respiratory infection[ICD10: J44.0] Lita BARAKAT [facility] CPT-4: 59633 01/02/2018 ([id number]) OFFICE/OUTPATIENT VISIT EST Diagnosis: Chronic obstructive pulmonary disease with (acute) exacerbation[ICD10: J44.1] Autumn BARAKAT DO [facility] CPT- 4: 14020 12/28/2017 ([id number]) OFFICE/OUTPATIENT VISIT EST Diagnosis: Acute bronchitis, unspecified[ICD10: J20.9] Autumn BARAKAT DO [facility] CPT-4: 38329 12/21/2017 ([id number]) OFFICE/OUTPATIENT VISIT EST Diagnosis: Chronic obstructive pulmonary disease with acute lower respiratory infection[ICD10: J44.0] Diagnosis: Pain in right knee[ICD10: M25.561] Autumn BARAKAT [facility] CPT-4: 59595 12/17/2017 ([id number]) OFFICE/OUTPATIENT VISIT EST Diagnosis: Laceration without foreign body of right hand, sequela[ICD10: S61.411S] Diagnosis: Restless legs syndrome[ICD10: G25.81] Lita Barakat ALIZEONIEL AGNE Ashley [facility]: 50088 10/17/2017 OFFICE/OUTPATIENT VISIT EST Diagnosis: Chronic obstructive pulmonary disease with acute lower respiratory infection[ICD10: J44.0] Autumn BARAKAT [facility] CPT-4: 83023 08/02/2017 ([id number]) OFFICE/OUTPATIENT VISIT EST Diagnosis: PNEUMOCOCCAL VACCINE[ICD10: Z23] Lita [facility] CPT-[facility]: 93679 07/24/2017 OFFICE/OUTPATIENT VISIT EST Diagnosis: Chronic obstructive pulmonary disease with (acute) exacerbation[ICD10: J44.1] Autumn BARAKAT [facility] CPT- 4: 79937 07/02/2017 OFFICE/OUTPATIENT VISIT EST Diagnosis: Low back pain[ICD10: M54.5] Ruchi Ramirez Filiberto BRANDIN [facility] CPT-4: 99424 05/29/2017 ([id number]) OFFICE/OUTPATIENT VISIT EST Diagnosis: Essential (primary) hypertension[ICD10: I10] Diagnosis: Hypothyroidism, unspecified[ICD10: E03.9] Diagnosis: Dizziness and giddiness[ICD10: R42] Diagnosis: Other abnormality of red blood cells[ICD10: R71.8] Diagnosis: Contracture of muscle, unspecified site[ICD10: M62.40] Lita Yuval ALYLINE DonovanFerdinand [facility] CPT-4: 62352 04/17/2017 OFFICE/OUTPATIENT VISIT EST Diagnosis: Pain in left shoulder[ICD10: M25.512] Ruchi TRAN DonovanFerdinand [facility] CPT-4: 06789 01/29/2017 ([id number]) OFFICE/OUTPATIENT VISIT EST Diagnosis: Anemia, unspecified[ICD10: D64.9] Lita BARAKAT DO [facility] CPT-4: 10890 12/27/2016 ([id number]) OFFICE/OUTPATIENT VISIT EST Diagnosis: Other fatigue[ICD10: R53.83] Diagnosis: Other iron deficiency anemias[ICD10: D50.8] Lita BARAKAT DO [facility] CPT-4: 50809 12/21/2016 ([id number]) OFFICE/OUTPATIENT VISIT EST Diagnosis: Anemia, unspecified[ICD10: D64.9] Diagnosis: Other fatigue[ICD10: R53.83] Diagnosis: Restless legs syndrome[ICD10: G25.81] Lita BARAKAT DO [facility] CPT-4: 05133 12/14/2016 ([id number]) OFFICE/OUTPATIENT VISIT EST Diagnosis: Anemia, unspecified[ICD10: D64.9] Diagnosis: Other abnormality of red blood cells[ICD10: R71.8] Lita BARAKAT DO [facility] CPT-4: 77095 12/12/2016 ([id number]) OFFICE/OUTPATIENT VISIT EST Diagnosis: Pneumonia, unspecified organism[ICD10: J18.9] Diagnosis: Restless legs syndrome[ICD10: G25.81] Magda BARAKAT DO [facility] CPT-4: 82444 11/14/2016 ([id number]) OFFICE/OUTPATIENT VISIT EST Diagnosis: Candidal stomatitis[ICD10: B37.0] Lita BARAKAT DO [facility] CPT-4: 83708 10/31/2016 ([id number]) OFFICE/OUTPATIENT VISIT EST Diagnosis: Acute upper respiratory infection, unspecified[ICD10: J06.9] Diagnosis: Personal history of pneumonia (recurrent)[ICD10: Z87.01] Magda BARAKAT DO [facility] CPT-4: 07609 10/03/2016 ([id number]) OFFICE/OUTPATIENT VISIT EST Diagnosis: Restless legs syndrome[ICD10: G25.81] Diagnosis: Insomnia, unspecified[ICD10: G47.00] [facility] CPT-[facility]: 20929 09/04/2016 ([id number]) OFFICE/OUTPATIENT VISIT EST Diagnosis: Restless legs syndrome[ICD10: G25.81] Diagnosis: Primary insomnia[ICD10: F51.01] Lita BARAKAT [facility] CPT-4: 06230 08/10/2016 OFFICE/OUTPATIENT VISIT EST Diagnosis: Toxic gastroenteritis and colitis[ICD10: K52.1] Diagnosis: Dizziness and giddiness[ICD10: R42] Diagnosis: Headache[ICD10: R51] Diagnosis: Restless legs syndrome[ICD10: G25.81] Lita [facility] CPT-[facility]: 16323 07/06/2016 ([id number]) OFFICE/OUTPATIENT VISIT EST Diagnosis: Chest pain, unspecified[ICD10: R07.9] Diagnosis: Dyspnea, unspecified[ICD10: R06.00] Mag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 CPT-4: 36709 06/13/2016 ([id number]) OFFICE/OUTPATIENT VISIT EST Diagnosis: Chest pain, unspecified[ICD10: R07.9] Diagnosis: Other forms of dyspnea[ICD10: R06.09] Diagnosis: Shortness of breath[ICD10: R06.02] Diagnosis: Other fatigue[ICD10: R53.83] Mag[facility] CPT-[facility]: 99832 06/01/2016 ([id number]) OFFICE/OUTPATIENT VISIT EST Diagnosis: Unspecified hearing loss, left ear[ICD10: H91.92] Diagnosis: Other specified disorders of Eustachian tube, left ear[ICD10: H69.82] Magda Navneet 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] Lita CRAWFORD DonovanFerdinand [facility] CPT - 4: 00538 03/13/2016 ([id number]) OFFICE/OUTPATIENT VISIT EST Diagnosis: Type 2 diabetes mellitus with hyperglycemia[ICD10: E11.65] Diagnosis: Hyperlipidemia, unspecified[ICD10: E78.5] Diagnosis: Essential (primary) hypertension[ICD10: I10] Diagnosis: Chronic obstructive pulmonary disease, unspecified[ICD10: J44.9] Diagnosis: Testicular hypofunction[ICD10: E29.1] Diagnosis: Male erectile dysfunction, unspecified[ICD10: N52.9] Diagnosis: Anemia, unspecified[ICD10: D64.9] Lita Farnsworth DonovanFerdinand [facility] [email or web address] [facility] CPT-4: 03611 03/06/2016 ([id number]) OFFICE/OUTPATIENT VISIT EST Diagnosis: Type 2 diabetes mellitus with hyperglycemia[ICD10: E11.65] Diagnosis: Hyperlipidemia, unspecified[ICD10: E78.5] Diagnosis: Chronic obstructive pulmonary disease, unspecified[ICD10: J44.9] Diagnosis: Male erectile dysfunction, unspecified[ICD10: N52.9] Lita CRAWFORD DonovanFerdinand [facility] CPT-4: 70665 03/02/2016 ([id number]) OFFICE/OUTPATIENT VISIT EST Diagnosis: Pain in right foot[ICD10: M79.671] Magda GONZALES DonovanFerdinand [facility] [email or web address] [facility] CPT-4: 99927 02/14/2016 OFFICE/OUTPATIENT VISIT EST Diagnosis: Generalized anxiety disorder[ICD10: F41.1] Lita CRAWFORD DonovanFerdinand [facility] CPT-4: 15399 01/31/2016 ([id number]) OFFICE/OUTPATIENT VISIT EST Diagnosis: Generalized anxiety disorder[ICD10: F41.1] Lita BARAKAT [email or web address] [facility] CPT-4: 76543 12/30/2015 ([id number]) OFFICE/OUTPATIENT VISIT EST Diagnosis: Localized swelling, mass and lump, neck[ICD10: R22.1] Lita BARAKAT DO [facility] CPT-4: 87694 12/16/2015 OFFICE/OUTPATIENT VISIT EST Diagnosis: Localized enlarged lymph nodes[ICD10: R59.0] Diagnosis: Otalgia, left ear[ICD10: H92.02] Stephanie BARAKAT DO [facility] CPT-4: 83141 12/06/2015 OFFICE/OUTPATIENT VISIT EST Diagnosis: Localized enlarged lymph nodes[ICD10: R59.0] Diagnosis: Squamous cell carcinoma of skin, unspecified[ICD10: C44.92] Diagnosis: Actinic keratosis[ICD10: L57.0] Stephanie BARAKAT DO [facility] CPT-4: 66120 11/15/2015 OFFICE/OUTPATIENT VISIT EST Diagnosis: Cellulitis of left lower limb[ICD10: L03.116] Diagnosis: Encounter for examination and observation for other specified reasons[ICD10: Z04.8] Diagnosis: Chronic obstructive pulmonary disease, unspecified[ICD10: J44.9] Stephanie BARAKAT DO [facility] CPT-4: 32748 07/22/2015 OFFICE/OUTPATIENT VISIT EST Diagnosis: Other specified joint disorders, left knee[ICD10: M25.862] Diagnosis: Cellulitis of left lower limb[ICD10: L03.116] Diagnosis: Other fatigue[ICD10: R53.83] Diagnosis: Hyperlipidemia, unspecified[ICD10: E78.5] Stephanie BARAKAT DO [facility] CPT-4: 81724 07/01/2015 OFFICE/OUTPATIENT VISIT EST Diagnosis: Pain in left knee[ICD10: M25.562] Diagnosis: Cellulitis of left lower limb[ICD10: L03.116] Diagnosis: Other specified joint disorders, left knee[ICD10: M25.862] Stephanie VanBecelaere LITA S. ORENDER DO [facility] CPT-4: 33212 06/28/2015 OFFICE/OUTPATIENT VISIT EST Diagnosis: PREPATELLAR BURSITIS[ICD9: 726.65] Diagnosis: Cellulitis of knee, left[ICD9: 682.6] Stephanie BARAKAT DO [facility] CPT-4: 43584 06/09/2015 ([id number]) OFFICE/OUTPATIENT VISIT EST Diagnosis: PREPATELLAR BURSITIS[ICD9: 726.65] Diagnosis: Cellulitis of knee, left[ICD9: 682.6] Lita BARAKAT DO [facility] CPT-4: 14735 06/07/2015 OFFICE/OUTPATIENT VISIT EST Diagnosis: Cellulitis of knee, left[ICD9: 682.6] Stephanie BARAKAT DO [facility] CPT-4: 62952 06/03/2015 ([id number]) OFFICE/OUTPATIENT VISIT EST Diagnosis: DM W/O COMPLICATION TYPE II, UNCONTROLLED[ICD9: 250.02] Diagnosis: COPD[ICD9: 496] Lita BARAKAT [facility] CPT- 4: 76369 06/01/2015 ([id number]) OFFICE/OUTPATIENT VISIT EST Diagnosis: COPD[ICD9: 496] Diagnosis: DYSPNEA[ICD9: 786.09] Diagnosis: DM W/O COMPLICATION TYPE II, UNCONTROLLED[ICD9: 250.02] Diagnosis: Actinic keratosis[ICD9: 702.0] Lita BARAKAT [facility] CPT-4: 25370 02/25/2015 ([id number]) OFFICE/OUTPATIENT VISIT EST Diagnosis: ASTHMA NOS[ICD9: 493.90] Diagnosis: COPD[ICD9: 496] Diagnosis: DM W/O COMPLICATION TYPE II, UNCONTROLLED[ICD9: 250.02] Lita BARAKAT DO [facility] CPT-4: 01212 10/27/2014 OFFICE/OUTPATIENT VISIT EST Diagnosis: DYSPNEA[ICD9: 786.09] Diagnosis: COPD[ICD9: 496] Lita BARAKAT [facility] CPT- 4: 01573 10/06/2014 ([id number]) OFFICE/OUTPATIENT VISIT EST Diagnosis: PNEUMONIA, ORGANISM[ICD9: 486] Diagnosis: COPD[ICD9: 496] Diagnosis: DYSPNEA[ICD9: 786.09] Lita BARAKAT DO [facility] CPT-4: 08124 09/21/2014 OFFICE/OUTPATIENT VISIT EST Diagnosis: PNEUMONIA, ORGANISM[ICD9: 486] Diagnosis: DYSPNEA[ICD9: 786.09] Diagnosis: COUGH[ICD9: 786.2] Stephanie BARAKAT DO [facility] CPT-4: 02749 09/08/2014 OFFICE/OUTPATIENT VISIT EST Diagnosis: COPD with exacerbation[ICD9: 491.21] Diagnosis: COUGH[ICD9: 786.2] Diagnosis: DYSPNEA[ICD9: 786.09] Stephanie BARAKAT DO [facility] CPT-4: 72068 09/02/2014 ([id number]) OFFICE/OUTPATIENT VISIT EST Diagnosis: DM W/O COMPLICATION TYPE II, UNCONTROLLED[ICD9: 250.02] Lita BARAKAT [facility] CPT-4: 24366 08/27/2014 ([id number]) OFFICE/OUTPATIENT VISIT EST Diagnosis: DM W/O COMPLICATION TYPE II, UNCONTROLLED[ICD9: 250.02] Diagnosis: HYPERLIPIDEMIA NEC/NOS[ICD9: 272.4] Diagnosis: HYPERTENSION[ICD9: 401.9] Diagnosis: COPD[ICD9: 496] Diagnosis: FLU VACCINE[ICD10: Z23] Lita PABLO [facility] CPT-4: 29911 08/05/2014 ([id number]) OFFICE/OUTPATIENT VISIT EST Diagnosis: COPD[ICD9: 496] Diagnosis: Lumbar degenerative disc disease[ICD9: 722.52] Lita BARAKAT DO [facility] CPT-4: 63718 05/05/2014 OFFICE/OUTPATIENT VISIT EST Diagnosis: DYSPNEA[ICD9: 786.09] Diagnosis: COPD[ICD9: 496] Lita BARAKAT [facility] CPT- 4: 78473 03/24/2014 ([id number]) OFFICE/OUTPATIENT VISIT EST Diagnosis: COPD[ICD9: 496] Diagnosis: DYSPNEA[ICD9: 786.09] [facility]ita [facility] CPT-[facility]: 34228 03/10/2014 OFFICE/OUTPATIENT VISIT EST Diagnosis: Subacromial bursitis[ICD9: 726.19] Diagnosis: Chronic low back pain[ICD9: 724.2] Diagnosis: Lumbar degenerative disc disease[ICD9: 722.52] Lita AYLLINE DonovanFerdinand [facility] CPT-[facility]: 85113 12/16/2013 ([id number]) OFFICE/OUTPATIENT VISIT EST Diagnosis: PHARYNGITIS, ACUTE[ICD9: 462] Diagnosis: COPD[ICD9: 496] Liat ALYLINE DonovanFerdinand [facility] CPT- 4: 69476 10/09/2013 OFFICE/OUTPATIENT VISIT EST Diagnosis: COPD[ICD9: 496] Diagnosis: Acute exacerbation of chronic obstructive pulmonary disease (COPD)[ICD9: 491.21] Ruchi Buchanan LITA DonovanFerdinand [facility] CPT-4: 69895 09/18/2013 ([id number]) OFFICE/OUTPATIENT VISIT EST Diagnosis: PNEUMONIA, ORGANISM[ICD9: 486] Diagnosis: DM W/O COMPLICATION TYPE II[ICD9: 250.00] Lita ALYLINE DonovanFerdinand [facility] CPT-[facility]: 06105 08/13/2013 ([id number]) OFFICE/OUTPATIENT VISIT EST Diagnosis: DM W/O COMPLICATION TYPE II, UNCONTROLLED[ICD9: 250.02] Diagnosis: HYPERLIPIDEMIA NEC/NOS[ICD9: 272.4] Diagnosis: HYPERTENSION[ICD9: 401.9] Diagnosis: DYSPNEA[ICD9: 786.09] Diagnosis: Family history of CABG[ICD9: V17.49] Litacarol ALY JESSICA Ashley [facility] CPT-4: 84158 07/16/2013 ([id number]) OFFICE/OUTPATIENT VISIT EST Diagnosis: DM W/O COMPLICATION TYPE II, UNCONTROLLED[ICD9: 250.02] Diagnosis: HYPERLIPIDEMIA NEC/NOS[ICD9: 272.4] Diagnosis: HYPERTENSION[ICD9: 401.9] Lita [facility]val [facility] CPT-4: 27158 06/25/2013 OFFICE/OUTPATIENT VISIT EST Diagnosis: COUGH[ICD9: 786.2] Diagnosis: COPD[ICD9: 496] Kimberly BARAKAT [facility] CPT- 4: 32268 04/09/2013 ([id number]) OFFICE/OUTPATIENT VISIT EST Diagnosis: Muscle spasm[ICD9: 728.85] Diagnosis: ARTHRALGIA-MULTIPLE SITES[ICD9: 719.49] Lita [facility]val [facility] CPT-4: 83988 02/11/2013 OFFICE/OUTPATIENT VISIT EST Diagnosis: COPD with exacerbation[ICD9: 491.21] Diagnosis: BRONCHITIS, ACUTE[ICD9: 466.0] Ruchi Buchanan [facility]ITA [facility] CPT-[facility]: 30933 01/31/2013 OFFICE/OUTPATIENT VISIT EST Diagnosis: COUGH[ICD9: 786.2] Diagnosis: PHARYNGITIS, ACUTE[ICD9: 462] Diagnosis: SINUSITIS, ACUTE[ICD9: 461.9] Lita [facility] CPT-4: 55101 01/20/2013 OFFICE/OUTPATIENT VISIT EST Diagnosis: DIZZINESS/VERTIGO[ICD9: 780.4] [facility]: 51609 12/19/2012 OFFICE/OUTPATIENT VISIT EST Diagnosis: Skin lesion of left arm[ICD9: 709.9] Diagnosis: Otitis externa[ICD9: 380.10] Diagnosis: PHARYNGITIS, ACUTE[ICD9: 462] Lita [facility]val [facility] CPT-4: 29418 10/21/2012 ([id number]) OFFICE/OUTPATIENT VISIT EST Diagnosis: DM W/O COMPLICATION TYPE II, UNCONTROLLED[ICD9: 250.02] Diagnosis: HYPERLIPIDEMIA NEC/NOS[ICD9: 272.4] Diagnosis: HYPERTENSION[ICD9: 401.9] Lita [facility]val [facility] CPT-4: 89641 09/19/2012 ([id number]) OFFICE/OUTPATIENT VISIT EST Diagnosis: DM W/O COMPLICATION TYPE II, UNCONTROLLED[ICD9: 250.02] Diagnosis: HYPERLIPIDEMIA NEC/NOS[ICD9: 272.4] Diagnosis: COPD[ICD9: 496] Lita BARAKAT DO [facility] CPT- 4: 84302 09/18/2012 ([id number]) OFFICE/OUTPATIENT VISIT EST Diagnosis: BRONCHITIS, ACUTE[ICD9: 466.0] Diagnosis: SINUSITIS, ACUTE[ICD9: 461.9] Lita BARAKAT DO [facility] CPT-4: 29861 08/28/2012 ([id number]) OFFICE/OUTPATIENT VISIT EST Diagnosis: COPD[ICD9: 496] Diagnosis: DYSPNEA[ICD9: 786.09] Diagnosis: VAC STREP PNEUMONIAE-FLU (Medicare)[ICD9: V06.6] Lita BARAKAT DO [facility] CPT-4: 74217 07/10/2012 ([id number]) OFFICE/OUTPATIENT VISIT EST Diagnosis: DM W/O COMPLICATION TYPE II, UNCONTROLLED[ICD9: 250.02] Diagnosis: HYPERTENSION[ICD9: 401.9] Diagnosis: HYPERLIPIDEMIA NEC/NOS[ICD9: 272.4] Diagnosis: DIZZINESS/VERTIGO[ICD9: 780.4] Lita BARAKAT [email or web address] [facility] CPT-4: 83563 05/09/2012 ([id number]) OFFICE/OUTPATIENT VISIT EST Diagnosis: DM W/O COMPLICATION TYPE II, UNCONTROLLED[ICD9: 250.02] Diagnosis: HYPERLIPIDEMIA NEC/NOS[ICD9: 272.4] Diagnosis: HYPERTENSION[ICD9: 401.9] Diagnosis: MALAISE AND FATIGUE[ICD9: 780.79] Lita BARAKAT [email or web address] [facility] CPT-4: 83522 05/06/2012 OFFICE/OUTPATIENT VISIT EST Diagnosis: COUGH[ICD9: 786.2] Diagnosis: SINUSITIS, ACUTE[ICD9: 461.9] Diagnosis: PHARYNGITIS, ACUTE[ICD9: 462] Lita BARAKAT DO [facility] CPT-4: 24206 10/02/2011 OFFICE/OUTPATIENT VISIT EST Diagnosis: DM W/O COMPLICATION TYPE II, UNCONTROLLED[ICD9: 250.02] Diagnosis: HYPERLIPIDEMIA NEC/NOS[ICD9: 272.4] Diagnosis: HYPERTENSION[ICD9: 401.9] Diagnosis: COPD[ICD9: 496] Lita VALERIO CPT- 4: 14071 08/07/2011 OFFICE/OUTPATIENT VISIT EST Lita [facility] CPT- 4: 74729 04/03/2011 ([id number]) OFFICE/OUTPATIENT VISIT EST Lita PALACIOS [facility] CPT-4: 46587 01/18/2011 ([id number]) OFFICE/OUTPATIENT VISIT EST Lita PALACIOS [facility] CPT-4: 60129 12/19/2010 ([id number]) OFFICE/OUTPATIENT VISIT, EST Lita CA[facility]LLANOSNDER [facility] CPT-4: 07729 04/05/2010 ([id number]) OFFICE/OUTPATIENT VISIT, EST Lita HOLMAN SFerdinand [facility] CPT-4: 41657 01/13/2010 ([id number]) OFFICE/OUTPATIENT VISIT, EST Lita HOLMAN [facility] CPT-4: 68214 12/23/2009 ([id number]) OFFICE/OUTPATIENT VISIT, EST Lita H[facility]MAN [facility] CPT-4: 93009 12/22/2009 ([id number]) OFFICE/OUTPATIENT VISIT, EST Lita HOLMAN SFerdinand [facility] CPT-4: 76672 12/13/2009 Plan of Care Planned Activity Notes [...] ICD-9 : 496 ICD-10 : J44.9 02/04/2020 Visit Diagnosis Plan: Chronic obstructiv e pulmonary disease with (acute) exacerbation Discussion: Solumedrol 125mg IM Continue SVNs every 4hrs Prednisone for 1 week COVID-19 precautions ICD-9 : 491.21 ICD-10 : J44.1 12/25/2019 Appointment: Lita Barakat WPtel: [address] [place], [place] [phone] FOLLOW UP 12/25/2019 Patient Education: prednisone- [employer] [id number] [email or web address] Completed 12/25/2019 Visit Diagnosis Plan: Noncompliance with diabetes rsolyn tment Discussion: Increase levemir to 15u sc daily and call in 1 week with BS readings ICD-9 : V15.81 ICD-10 : Z91.19 12/22/2019 Visit Diagnosis Plan: Pain in right knee Discussion: C ontinue Hydrocodone q HS Add Baclofen 10mg q HS Call in few days on how doing ICD-9 : 719.46 ICD-10 : M25.561 12/22/2019 Appointment: Lita [facility]at [facility]el[id number] [facility] 12/22/2019 Patient Education: baclofen- [employer] Coupon [id number] [email or web address] Completed 12/22/2019 Visit Diagnosis Plan: Chronic respiratory [...] : C44.310 11/12/2019 Appointment: Lita Barakat WPtel: [address] [place], [place] [phone] ACUTE ILLNESS 11/12/2019 Care Plan: Referral Order SNOMED-CT : 30 [id number] Pending 11/12/2019 Care Plan: Referral Order SNOMED-CT : 30 [id number] Pending 11/12/2019 Visit Diagnosis Plan: Right thyroid nodule Discussion: Check thyroid US ICD-9 : 241.0 ICD-10 : E04.1 09/11/2019 Visit Diagnosis Plan: Chronic obstructive pulmonary di sease, unspecified Discussion: Start Pulmonary Rehab Reviewed results of CT of chest ordered by pulmonology Follow Up: 3 months ICD-9 : 496 ICD-10 : J44.9 09/11/2019 Appointment: Lita Barakat WPtel: [address] [place], [place] [phone] MEDICATION REVIEW 09/11/2019 Care Plan: US EXAM OF HEAD AND NECK LOIN C : 19815-8 Pending 09/11/2019 Visit Diagnosis Plan: Chronic bronchitis Discussion: A ugmentin for 10 days ICD-9 : 491.9 ICD-10 : J42 08/07/2019 Appointment: Lita Barakat WPtel: [address] [place], [place] [phone] ACUTE ILLNESS 08/07/2019 Visit Diagnosis Plan: Chronic [...] him that overuse of symbicort can cause senior living damage and the albuterol is to be used every 4 hours as needed. call office later this week with worsening or no improvement ICD-9 : 491.21 ICD-10 : J44.1 07/14/2019 Appointment: Autumn Oneil [address] ACUTE ILLNESS 07/14/2019 Visit Diagnosis Plan: Dyspepsia [...] : F51.01 07/01/2019 Appointment: Lita Barakat WPtel: [address] [place] [address] FOLLOW UP 07/01/2019 Care Plan: CT ABDOMEN W/O DYE LOINC : 36 103-0 Pending 07/01/2019 Care Plan: Referral Order SNOMED-CT : 30 [id number] Pending 07/01/2019 Visit Diagnosis Plan: Weight loss [...] : R10.13 06/24/2019 Appointment: Lita Barakat WPtel: [address] [place] [address] ACUTE ILLNESS 06/24/2019 Patient Education: Seroquel- [employer] Coupon [id number] [email or web address] Completed 06/[email or web address] Patient Education: ondansetron HCl- [employer] Coupon [id number] https://www.[employer].com/samplemd/resources/getResource/61/[email or web address]-[email or web address] Completed 06/24/2019 Care Plan: US EXAM ABDOM COMPLETE LOINC : 04486-7 Pending 06/24/2019 Visit Diagnosis Plan: Chronic insomnia [...] ICD-10 : H53.2 06/17/2019 Appointment: Lita Barakattel: [address] [place], [place] [phone] US FOLLOW UP 06/17/2019 Appointment: Lita Barakat WPtel: [address] [place], [place] [phone] US INJECTION 06/10/2019 Appointment: Lita Barakat WPtel: [address] [place], [place] [phone] US INJECTION 06/02/2019 Appointment: Lita Barakat WPtel: [address] [place], [place] [phone] US INJECTION 05/27/2019 Appointment: Lita Barakat WPtel: [address] [place], [place] [id number] [place] INJECTION 05/12/2019 Visit Diagnosis Plan: Anemia, unspecified Discussion: Check CBC, iron, Ferritin, B12 ICD-9 : 285.9 ICD-10 : D64.9 05/08/2019 Visit Diagnosis Plan: Primary insomnia Discussion: Nathalie imelda sent out numerous sleeping meds but has [...] : E55.9 05/08/2019 Appointment: Lita Barakat WPtel: [address] [place], [place] [phone] FOLLOW UP 05/08/2019 Visit Diagnosis Plan: Pain in right knee Discussion: S top tramadol and tylenol q HS Trial of Hydrocodone 10/325mg po q HS Recheck 1month ICD-9 : 719.46 ICD-10 : M25.561 04/07/2019 Appointment: Lita Barakat WPtel: [address] [place], [place] [id number] Hospital Follow Up 04/07/2019 Visit Diagnosis Plan: [...] ICD-10 : F41.1 03/24/2019 Appointment: Autumn Oneil [address] [place] [address] ACUTE ILLNESS 03/24/2019 Patient Education: hydroxyzine HCl- [employer] Coupon [id number] Completed 03/24/2019 Patient Education: pantoprazole- [employer] Coupon [id number] Completed 03/24/2019 Visit Diagnosis Plan: Chronic obstructiv e pulmonary disease with (acute) exacerbation Discussion: 90 mg solumedrol given in of fice. patient's portable oxygen tank was empty. [id number] patient on importance of monitoring oxygen tank [...] : R42 03/21/2019 Appointment: Autumn Oneil [address] [place] [address] ACUTE ILLNESS 03/21/2019 Patient Education: ipratropium-albuterol- [employer] C taj [id number] https://www.[employer].com/samplemd/resources/getResource/61/i9ji79x3-p9e2-2c7a-88 Completed 03/21/2019 Visit Diagnosis Plan: Chronic obstructiv e pulmonary disease with (acute) exacerbation Discussion: Solumedrol now Use SVNs with duoneb at least q4hrs Patient is supposed to be on continuous oxygen but not wearing ICD-9 : 491.21 ICD-10 : J44.1 03/13/2019 Visit Diagnosis Plan: Candidal stomatitis Discussion: Diflucan and Nystatin susp ICD-9 : 112.0 ICD-10 : B37.0 03/13/2019 Appointment: Lita Barakat WPtel: [address] [place] [address] ACUTE ILLNESS 03/13/2019 Patient Education: losartan- [employer] Coupon [id number] Completed 03/13/2019 Patient Education: nystatin- [employer] Coupon [id number] Completed 03/13/2019 Patient Education: fluconazole- [employer] Coupon [id number] Completed 03/13/2019 Visit Diagnosis Plan: Chronic obstructiv [...] : G25.81 03/10/2019 Appointment: Lita Barakat WPtel: [address] [place] [address] ACUTE ILLNESS 03/10/2019 Visit Diagnosis Plan: Restless legs syndrome Discussio n: Stop requip Increase sinemet to TID Add children's chewable MV with iron BID Add magnesium oxide 400mg daily Add Lyrica 75mg po q HS Stop trazadone Recheck 3 weeks Follow Up: 3 weeks ICD-9 : 333.94 ICD-10 : G25.81 02/26/2019 Appointment: Lita Barakat WPtel: [address] [place] [address] ACUTE ILLNESS 02/26/2019 Visit Diagnosis Plan: Primary insomnia Discussion: Tri al of doxepin 10-20mg po q HS prn sleep ICD-9 : 780.52 ICD-10 : F51.01 02/13/2019 Visit Diagnosis Plan: Chronic obstructive pulmonary di sease, unspecified Discussion: Stable Discussed trip to [place]--will get oxygen setup through [facility] ICD-9 : 496 ICD-10 : J44.9 02/13/2019 Appointment: Lita Barakat WPtel: [address] [place], [place] [phone] FOLLOW UP 02/13/2019 Patient Education: doxepin- [employer] Coupon [id number] https://www.[employer]/samplemd/resources/getResource/61/[email or web address]-[email or web address] Completed 02/13/2019 Appointment: Lita Barakat WPtel: [address] [place] [address] US CANCELED 01/20/2019 Visit Diagnosis Plan: Chronic obstructive pulmonary di marcello, unspecified Discussion: Stable on oxygen Given Symbicort samples Follow Up: 1 months ICD-9 : 496 ICD-10 : J44.9 01/14/2019 Appointment: Lita Barakat WPtel: [address] [place], [place] [id number] Hospital Follow Up 01/14/2019 Visit Diagnosis [...] : J96.11 12/25/2018 Appointment: Lita Barakat WPtel: [address] [place], [place] [phone] Hospital Follow Up 12/25/2018 Appointment: Lita Barakat WPtel: [address] [place], [place] [phone] US CANCELED 12/23/2018 Appointment: Ines Banerjee [address] [place], [place] [address] US CANCELED 12/20/2018 Visit Diagnosis Plan: Acute [...] ICD-10 : I10 12/09/2018 Appointment: Ines Banerjee [address] [place], [place] [address] LAB 12/09/2018 Patient Education: cefdinir- [employer] Coupon [id number] https://www.[employer]/resources/getResource/61/[email or web address]-[email or web address] Completed 12/09/2018 Visit Diagnosis Plan: Candidal stomatitis Discussion: Diflucan for 5 days Hold atorvastatin while taking ICD-9 : 112.0 ICD-10 : B37.0 12/05/2018 Appointment: Lita Barakat WPtel: [address] [place] [address] ACUTE ILLNESS 12/05/2018 Patient Education: fluconazole- [employer] Coupon [id number] https://www.[employer]/samplemd/resources/getResource/61/[email or web address] Completed 12/05/2018 Appointment: Lita Barakat WPtel: [address] [place] [address] NO SHOW 11/11/2018 Visit Plan: Saline nasal [...] : J01.91 10/23/2018 Appointment: Lita Barakat WPtel: [address] [place], [place] [phone] ACUTE ILLNESS 10/23/2018 Patient Education: prednisone- [employer] Coupon [id number] https://www.[employer]/resources/getResource/61/fw6yc225-cujk-7756-41 Completed 10/23/2018 Care Plan: A1C HPLC LOINC : 01374-0 Pending 09/10/2018 Care Plan: COMPREH[place] METABOLIC [place]EL [place] : 469[address]-5 Pending 09/10/2018 Care Plan: CBC Pending 09/10/2018 [...] : G25.81 08/21/2018 Appointment: Lita Barakat WPtel: [address] [place], [place] [phone] ACUTE ILLNESS 08/21/2018 Care Plan: Referral Order SNOMED-CT : 30 6329630 Pending 08/21/2018 Visit Diagnosis Plan: Chronic obstructiv [...] G25.81 08/07/2018 Appointment: Lita Barakat WPtel: [address] [place] [address] FOLLOW UP 08/07/2018 Appointment: Lita Barakat WPtel: [address] [place], [place] [phone] 07/18/18 1210---see note in chart (km) CANCELED 07/18/2018 Visit Diagnosis Plan: Chronic obstructiv e pulmonary disease with acute lower respiratory infection Discussion: Solumedrol 125mg IM Change t o trelagy 1 inhalation daily Use SVNs with albuterol q4hrs To ER this weekend if worsens Monitor weight/swelling ICD-9 : 496 ICD-10 : J44.0 05/23/2018 Appointment: Lita Barakat WPtel: [address] [place] [address] ACUTE ILLNESS 05/23/2018 Patient Education: Patient Medication Summary Completed 05/23/2018 Visit Diagnosis Plan: Candidal stomatitis Discussion: Diflucan for 7 more days--hold atrovastatin while taking ICD-9 : 112.0 ICD-10 : B37.0 05/02/2018 Appointment: Lita Barakat WPtel: [address] [place] [address] FOLLOW UP 05/02/2018 Patient Education: Patient Medication [...] ICD-10 : J44.0 04/29/2018 Appointment: Autumn Oneil [address] [place], [place] [address] ACUTE ILLNESS 04/29/2018 Patient Education: Patient Medication [...] J44.0 04/22/2018 App[facility]ment: [facility] [facility] [facility] 04/22/2018 Patient Education: Patient Medication Summary Completed 04/22/2018 Appointment: L[facility] Barakat [facility]Ptel[facility] [facility] 04/09/18 1640---see message in chart from [...] M17.11 01/28/2018 Appointment: Lita Barakat WPtel: [address] [place] [address] ACUTE ILLNESS 01/28/2018 Patient Education: Patient Medication Summary Completed 01/28/2018 Care Plan: Referral Order SNOMED-CT : 30 2346694 Pending 01/28/2018 Care Plan: Referral Order SNOMED-CT : 30 6434231 Pending 01/28/2018 Visit Diagnosis Plan: Functional dyspepsia Discussion: Protonix Call in 1 week on how doing ICD-9 : 536.8 ICD-10 : K30 01/23/2018 Visit Diagnosis Plan: Pain in right knee Discussion: T opical voltaren gel QID ICD-9 : 719.46 ICD-10 : M25.561 01/23/2018 Appointment: Lita Barakat WPtel: [address] [place] [address] ACUTE ILLNESS 01/23/2018 Patient Education: Patient Medication [...] N39.0 01/02/2018 Appointment: Lita Barakat WPtel: [address] [place] [address] ACUTE ILLNESS 01/02/2018 Patient Education: Patient Medication [...] : J44.1 12/28/2017 Appointment: Autumn Oneil [address] [place] [address] Consult 12/28/2017 Patient Education: Patient Medication Summary [...] : J20.9 12/21/2017 Appointment: Autumn Oneil [address] [facility] ACUTE ILLNESS 12/21/2017 Patient Education: Patient Medication Summary Completed 12/21/2017 Care Plan: X-RAY EXAM OF KNEE 1 OR 2 [place] : [address]53[address]-2 Pending 12/18/2017 Visit Diagnosis Plan: Pain in [...] ICD-10 : J44.0 12/17/2017 Appointment: Autumn Oneil [address] [place] [address] ACUTE ILLNESS 12/17/2017 Patient Education: Patient Medication Summary Completed 12/17/2017 Visit Diagnosis Plan: Unilateral primary osteoarthriti s, right knee Discussion: Right knee injection as above Warned of elevated BS after injection ICD-9 : 715.96 ICD-10 : M17.11 12/11/2017 Appointment: Lita Barakat WPtel: [address] [place] [address] OFFICE SURGERY 12/11/2017 Patient Education: Patient Medication Summary Completed 12/11/2017 Visit Diagnosis Plan: Actinic keratosis Discussion: Cr yotherapy as above If persists then will need excision by Dr. Swanson ICD-9 : 702.0 ICD-10 : L57.0 11/07/2017 Appointment: Lita Barakat WPtel: [address] [place] [address] ACUTE ILLNESS 11/07/2017 Patient Education: Patient Medication [...] S61.411S 10/17/2017 Appointment: Lita Barakat WPtel: [address] ER Follow UP 10/17/2017 Patient Education: Patient Medication Summary Completed 10/17/2017 Appointment: Lita Barakat WPtel: [address] [facility] US Consult 08/15/2017 Visit Diagnosis Plan: [...] : J44.0 08/02/2017 Appointment: Autumn Oneil [address] [place] [address] ACUTE ILLNESS 08/02/2017 Patient Education: Patient Medication Summary Completed 08/02/2017 Patient Education: Patient Medication Summary Completed 07/31/2017 Care Plan: CHEST X-RAY 2VW FRONTAL&LATL LOINC : 75880-2 Pending 07/31/2017 Appointment: Lita Barakat WPtel: [facility] INJECTION 07/24/2017 Patient Education: Patient Medication Summary [...] : J44.1 07/02/2017 Appointment: Autumn Oneil [address] ACUTE ILLNESS 07/02/2017 Patient Education: Patient Medication Summary Completed 07/02/2017 Care Plan: CHEST X-RAY 2VW FRONTAL&LATL LOINC : 21889-7 Pending 07/02/2017 Care Plan: MRI LUMBAR SPINE W/O DYE LOIN C : 31593-3 Pending 05/30/2017 Visit Plan: MRI at [facility] codone 5.325 1 po q 4-6 hours prn pain #40 NR and Cyclobenzaprine (ERx) Continue warm packs for pain RTC if no improvement 05/29/2017 Appointment: Ruchi Buchanan WPtel: [address] [place] [address] ACUTE ILLNESS 05/29/2017 Patient Education: Patient Medication Summary Completed 05/29/2017 Appointment: Lita Barakat WPtel: [address] [place] [address] US CANCELED 05/24/2017 Patient Education: Patient Medication Summary Completed 05/22/2017 Care Plan: X-RAY EXAM L-S SPINE 2/3 VWS LOINC : 12601-5 Pending 05/22/2017 Appointment: Lita Barakat WPtel: [address] [place] [address] LAB 04/17/2017 Patient Education: Patient Medication Summary Completed 04/17/2017 Referral: Demetrius Benjamin WPtel: [address] [place] [address] Referral Initiated 04/05/2017 Appointment: Lita Barakat WPtel: [address] [place], [place] [phone] 03/30/17 0930---spoke with patient about ointments (km Consult 03/30/2017 Appointment: Lita Barakat WPtel: [address] [place], [place] [id number] 03/29/17 1320---spoke with patient, requip refilled wasn't received at pharmacy so verbally called (km) Consult 03/29/2017 Patient Education: Patient Medication Summary Completed 03/01/2017 Care Plan: CHEST X-RAY 2VW FRONTAL&LATL LOINC : 23350-5 Pending 03/01/2017 Visit Diagnosis Plan: Bursitis of left shoulder Discus yesi: Injection as above ICD-9 : 726.10 ICD-10 : M75.52 02/01/2017 Appointment: Lita Barakat WPtel: [address] [place] [address] 01/31 confirmed ~sl WORK IN 02/01/2017 Patient Education: Patient Medication Summary Completed 02/01/2017 Care Plan: X-RAY EXAM OF SHOULDER LOINC : 82734-0 Pending 01/30/2017 Visit Plan: May take OTC Tylenol/Ibuprof en as directed XRay at [facility] of left shoulder Tramadol 50mg 1 po q 6 hours prn pain called to [facility]. Sedation warning given (no driving, etc) RTC if no improvement 01/29/2017 Appointment: Ruchi Buchanan WPtel: [address] [place] [address] ACUTE ILLNESS 01/29/2017 Appointment: Ruchi Buchanan WPtel: [address] [place] [address] ACUTE ILLNESS 01/29/2017 Patient Education: Patient Medication Summary Completed 01/29/2017 Appointment: Lita Barakat WPtel: [address] [place], [place] [address] [place] Consult 01/10/2017 Appointment: Lita Barakat WPtel: [address] [place], [place] [phone] 12/27/2016 Patient Education: Patient Medication Summary Completed [...] R53.83 12/21/2016 Appointment: Lita Barakat WPtel: [address] [place] [address] ACUTE ILLNESS 12/21/2016 Patient Education: Patient Medication Summary Completed 12/21/2016 Appointment: Lita Barakat WPtel: [address] [place], [place] [phone] US CANCELED 12/18/2016 Visit Diagnosis Plan: Restless [...] : D64.9 12/14/2016 Appointment: Lita Barakat WPtel: [address] [place] [address] 12/13 confirmed ~sl WORK IN 12/14/2016 Appointment: Lita Barakat WPtel: [address] [place], [place] [phone] US CANCELED 12/14/2016 Patient Education: Patient Medication Summary Completed 12/14/2016 Appointment: Lita Barakat WPtel: [address] [place], [place] [phone] [place] LAB 12/12/2016 Patient Education: Patient Medication Summary Completed 12/12/2016 Appointment: Lita Barakat WPtel: [address] [place], [place] [phone] in ER this weekend--called for reports Consult 12/11/2016 Appointment: Lita Barakat WPtel: [address] [place], [place] [address] US CANCELED 12/04/2016 Visit Diagnosis Plan: Pneumonia, [...] ICD-10 : G25.81 11/14/2016 Appointment: Magda Toth [address] [place], [place] [phone] MEDICATION REVIEW 11/14/2016 Patient Education: Patient Medication Summary Completed 11/14/2016 Appointment: Lita Barakattel: [address] [place], [place] [phone] US RESCHEDULED 11/02/2016 Visit Diagnosis Plan: Candidal stomatitis Discussion: Diflucan and Nystatin Hold atorvastatin while taking diflucan ICD-9 : 112.0 ICD-10 : B37.0 10/31/2016 Appointment: Lita Barakat WPtel: [address] [place], [place] [phone] ACUTE ILLNESS 10/31/2016 Patient Education: Patient Medication Summary Completed 10/31/2016 Appointment: Lita Barakat WPtel: [address] [place], [place] [phone] [place] Consult 10/23/2016 Appointment: Lita Barakat WPtel: [address] [place], [place] [phone] US CANCELED 10/18/2016 Visit Plan: Rx as above Wear O2 at all t imes as instructed by Dr Chacon Continue breathing treatments Supportive care otherwise reviewed Follow up ingrid if not improving 10/03/2016 Appointment: Lita Barakat WPtel: [address] [place], [place] [phone] US CANCELED 10/03/2016 Appointment: Magda Toth [address] [place] [address] ACUTE ILLNESS 10/03/2016 Patient Education: Patient Medication Summary Completed 10/03/2016 Visit Plan: Titrate requip to 1.5mg x 1 week Call if not helpful and will increase to 2mg qHS NO MORE nyquil at bedtime - discussed potential effects of decongestants on heart, oversedating himself, etc Will increase requip, then amitriptyline if needed to desired effect 09/04/2016 Appointment: Magda Toth [address] [place] [address] ACUTE ILLNESS 09/04/2016 Patient Education: Patient Medication Summary Completed 09/04/2016 Visit Plan: Stop requip and try elavil C ryotherapy as above See ENT for removal of right ear lesion 08/22/2016 Appointment: Lita Barakat WPtel: [address] [place] [address] ACUTE ILLNESS 08/22/2016 Patient Education: Patient Medication Summary Completed 08/22/2016 Visit Plan: Trial of requip 1mg q HS Res tart zoloft Recheck 1month 08/10/2016 Appointment: Lita Barakat WPtel: [address] [place] [address] ACUTE ILLNESS 08/10/2016 Patient Education: Patient Medication Summary Completed 08/10/2016 Visit Plan: Stop HCTZ Flagyl for diarrhe a Hydrate Discussed meds for restless legs Zofran prn Nausea 07/06/2016 Appointment: Lita Barakat WPtel: [address] [place] [address] 07/05 confirmed~sl Hospital Follow Up 07/06/2016 Patient Education: Patient Medication Summary Completed 07/06/2016 Visit Plan: Reviewed with Dr Yuval Palacios sidering his recent history, instructed him to go straight to the ER called to notify her so she can meet him there 06/22/2016 Appointment: Magda Toth [address] [place], [place] [id number] ACUTE ILLNESS 06/22/2016 Patient Education: Patient Medication Summary Completed 06/22/2016 Visit Plan: Continue current meds Prevna r 13 and High Dose Flu given 06/13/2016 Appointment: Lita Barakat WPtel: [address] [place] [address] 06/13 confirmed~ WORK IN 06/13/2016 Patient Education: Patient Medication Summary Completed 06/13/2016 Appointment: Lita Barakat WPtel: [address] [place] [address] just went over current medications CANCELED 06/08/2016 Visit Plan: Reviewed POC with Dr Barakat Stat cbc, cmp, d dimer, troponin, bnp, ekg, cxr If any worsening of symptoms while awaiting results, patient instructed to go to ER or call 911 06/01/2016 Appointment: Magda Toth [address] [place], [place] [id number] ACUTE ILLNESS 06/01/2016 Patient Education: Patient Medication Summary Completed 06/01/2016 Referral: José Miguel Swanson WPtel: [address] [place] [address] 04/[address] swanson's office, patient is [...] and treatment 04/26/2016 Appointment: Magda Toth Lianna [facility] ACUTE ILLNESS 04/26/2016 Patient Education: Patient Medication Summary Completed 04/26/2016 Care Plan: Referral Order SNOMED-CT : 30 5689411 Pending 04/26/2016 Visit Plan: Left ear flushed after conse nt with warm water with peroxide with ear syringe Patient tolerated well Ear exam is wnl following flushing Follow up PRN 04/05/2016 Appointment: Magda Toth [address] [place], [place] [id number] ACUTE ILLNESS 04/05/2016 Patient Education: Patient Medication Summary Completed 04/05/2016 Visit Plan: Increase Levemir to 25u sc d aily Increase sertraline to 2 full tablets daily--200mg Debrox or cerumenex to bilateral ears q HS for 3 nights then flush or fwup for fushing Check lab in 2mos then fwup 04/03/2016 Appointment: Lita Barakat WPtel: [address] [place], [place] [phone] 03/31 7 lm ~sl FOLLOW UP 04/03/2016 Patient Education: Patient Medication Summary Completed 04/03/2016 Visit Plan: Patient informed of correct dosage of levemir and how to administer. Patient verbalizes understanding and will call if any questions/concerns. 10 Units of Levemir given in office SC to right lower abdom en. Patient tolerated well. Site without redness/irritation. 03/13/2016 Appointment: Lita Barakat WPtel: [address] [place], [place] [phone] SPECIAL 03/13/2016 Patient Education: Patient Medication Summary Completed 03/13/2016 Appointment: Lita Barakat WPtel: [address] [place], [place] [phone] LAB 03/06/2016 Patient Education: Patient Medication Summary Completed 03/06/2016 Visit Plan: Patient saw Dr. Chacon this week and was given prednisone taper for COPD Continue current meds Accuchecks daily Patient will return on Sunday morning for fasting lab incuding CBC, CMP, TSH, free T4, HbA1C, Lipids, Testosterone, PSA 03/02/2016 Appointment: Lita Barakat WPtel: [address] [place], [place] [phone] 03/01 confirmed ~sl FOLLOW UP 03/02/2016 Patient [...] how doing 02/17/2016 Appointment: Lita Barakat WPtel: [address] [place] [address] WORK IN 02/17/2016 Patient Education: Patient Medication Summary Completed 02/17/2016 Visit Plan: Xrays to further evaluate Alvarez spect heel spur(s) Will call with results Has had injections in the past that were helpful Dr Barakat can do them or can refer to podiatry if warranted 02/14/2016 Appointment: Magda Toth [address] [place] [address] ACUTE ILLNESS 02/14/2016 Patient Education: Patient Medication Summary Completed 02/14/2016 Visit Plan: Increase Zoloft to 150mg cooper ly 01/31/2016 Appointment: Lita Barakat WPtel: [address] [place] [address] 01/26 confirmed `sl FOLLOW UP 01/31/2016 Patient Education: Patient Medication Summary Completed 01/31/2016 Visit Plan: Decrease citalopram to 20mg q AM for 1 week then stop Start zoloft 50mg q HS for 1 week then increase to 100mg q HS 12/30/2015 Appointment: Lita Barakat WPtel: [address] [place], [place] [id number] 12/28 confirmed~sl ACUTE ILLNESS 12/30/2015 Patient Education: Patient Medication Summary Completed 12/30/2015 Visit Plan: Check Neck US 12/16/2015 Appointment: Lita Barakat WPtel: [address] [place], [place] [phone] 12/14 lm ~sl 12/15 confirmed-sp FOLLOW UP 12/16/2015 Patient Education: Patient Medication Summary Completed 12/16/2015 Care Plan: US EXAM OF HEAD AND NECK LOIN C : 25646-4 Ordered 12/16/2015 Appointment: Stephanie Rios WPtel: [address] [place], [place] [phone] [place] 12/09 confirmed-sp 12/12 lm ~sl Patient [...] PO TID 12/06/2015 Appointment: Stephanie Rios WPtel: [address] [place], [place] [id number] ACUTE ILLNESS 12/06/2015 Patient Education: Patient Medication Summary Completed 12/06/2015 Referral: Lisbeth Darby WPtel: [facility] [address] 11/18/15 called luther at [facility] office and confirmed time and date of appointment with patient~sl Initiated 11/18/2015 Visit Plan: Referral to Dermatology for removal of facial skin lesions Cefdinir PO bid Topical Mupirocin to skin lesions bid 11/15/2015 Appointment: Stephanie Rios WPtel: [address] [place], [place] [phone] ACUTE ILLNESS 11/15/2015 Patient Education: Patient Medication Summary Completed 11/15/2015 Visit Plan: Continue current meds Accuch ecks daily Fwup with ophthamology as scheduled Will check lab in 3mos then fwup due to recent meds that will affect blood sugar 10/05/2015 Appointment: Lita Barakat WPtel: [address] [place], [place] [phone] 10/04/15 appt confirmed cn Annual Well Visit 08/2016 Patient Education: Patient Medication Summary Completed 10/05/2015 Visit Plan: Alexis -1 sample box given Return visit in 6 weeks for fasting labs Notify for worsening symptoms such as Increased redness, swelling, pain or drainage of Rt. knee 07/22/2015 Appointment: [facility]el[facility] 07/21 vm left cn FOLLOW UP 07/22/2015 Patient Education: Patient Medication Summary Completed 07/22/2015 Visit Plan: Continue to change dressing twice daily and apply Mupirocin Complete Doxycycline as directed. Follow-up for worsening symptoms, such as increased swelling, redness or pain. 07/01/2015 Appointment: Stephanie Rios WPtel: 2[address] [facility] FOLLOW UP 07/01/2015 Patient Education: Patient Medication Summary Completed 07/01/2015 Visit Plan: Pressure dressing applied to draining wound left knee. Instructed to change dressing twice daily and continue Mupirocin topical Doxycycline PO bid x 10 days Wound culture obtained. Wound tissue sent to pathology Follow-up in 3 days 06/28/2015 Appointment: Stephanie Rios WPtel: [address] [place], [place] [phone] ACUTE ILLNESS 06/28/2015 Patient Education: Patient Medication Summary Completed 06/28/2015 Visit Plan: Complete antibiotics Follow- up for increased tenderness, swelling or drainage. 06/09/2015 Appointment: Stephanie Rios WPtel: [address] [place], [place] [id number] 06/08/15 lm FOLLOW UP 06/09/2015 Patient Education: Patient Medication Summary Completed 06/09/2015 Visit Plan: Apply pressure dressing toda y Continue antibiotics and topical Mupirocin Follow-up in 2 days Bursa drained from open area using pressure--serosanguinous drainage 06/07/2015 Appointment: Stephanie Rios WPtel: [id number] 06/04/15 confirmed with patient FOLLOW UP 0 06/07/2015 Patient Education: Patient Medication Summary Completed 06/07/2015 Visit Plan: Wound culture Lt. knee Apply mupirocin to open wound bid Clindamycin 600 mg PO bid x 10 days Follow-up on Sunday06/03/2015 Appointment: Stephanie Rios WPtel: [address] [place], [place] [phone] ACUTE ILLNESS 06/03/2015 Patient Education: Patient Medication Summary Completed 06/03/2015 Visit Plan: Accuchecks daily Check CMP, HbA1C today Patient is noncompliant with meds and diet but patient says he is doing everything he is supposed to do Wants to try performomist instead of albuterol in SVN 06/01/2015 Appointment: Lita Barakat WPtel: [address] [place], [place] [phone] 05/28 appt confirmed cn FOLLOW UP 06/01/20 15 Patient Education: Patient Medication Summary Completed 06/01/2015 Visit Plan: Change Breo Ellipta to Advai r 500/50 1 p BID this next month Continue turdoza Use albuterol prn Check CMP, HbA1C today Accuchecks daily Cryotherapy as above 02/25/2015 Appointment: Lita Barakat WPtel: [address] [place], [place] [phone] 02/24 appt confirmed and explained needed payment he said ok FOLLOW UP 02/25/2015 Patient Education: Patient Medication Summary Completed 02/25/2015 Referral: Lopez Chacon [address] [facility] C&D [id number] Will put patient on cancellation list Initiated 12/08/2014 Appointment: Lita Barakat WPtel: [address] [place], [place] [phone] Hospital Follow Up 10/29/2014 Visit Plan: Finish prednisone Continue S VNs with albuterol QID See pulmonology and start Pulmonary rehab Once again discussed taking it easy this winter--that he is high risk for exacerbation 10/27/2014 Appointment: Lita Barakat WPtel: [address] [place], [place] [phone] FOLLOW UP 10/27/2014 Patient Education: Patient Medication Summary Completed 10/27/2014 Appointment: Lita Barakat WPtel: [address] [place] [address] FOLLOW UP 10/26/2014 Appointment: Stephanie Rios WPtel: [address] [place], [place] [phone] WORK IN 10/21/2014 Patient Education: Patient Medication Summary Completed 10/21/2014 Patient Education: Patient Medication Summary Completed 10/19/2014 Visit Plan: Continue oxygen and SVNS wit h duoneb Increase farxiga to 10mg daily Diflucan 100mg daily for 1week 10/06/2014 Appointment: Lita Barakat WPtel: [address] [place] [address] Moved appt time to 2:45pm FOLLOW UP 2014 Patient Education: Patient Medication Summary Completed 10/06/2014 Visit Plan: Finish omnicef Continue Breo BID and Turdoza Use SVNS with duoneb at least TID for next 2weeks then go to prn 09/21/2014 Appointment: Lita Barakat WPtel: [address] [place] [address] Follow Up 09/21/2014 Patient Education: Patient Medication Summary Completed 09/21/2014 Patient Education: [facility] - Saving AutoInj - Ventolin HFA - 18+ - Dynamic Portal ID Completed 09/21/2014 Appointment: Stephanie Rios WPtel: [address] [place], [place] [phone] Scheduled by 09/07 patient rescheduled to 09/08 with Stephanie. Hospital Follow Up 09/08/2014 Patient Education: Patient Medication Summary Completed 09/08/2014 Appointment: Stephanie Rios WPtel: [address] [place], [place] [phone] FOLLOW UP 09/02/2014 Patient Education: Patient Medication Summary Completed 09/02/2014 Patient Education: [employer] - Antibi otics, Analgesics 18+, Oral Contraceptives F 18+ Completed 09/02/2014 Appointment: Lita Barakat WPtel: [phone] [facility] UA 08/27/2014 Patient Education: Patient Medication Summary [...] prn sleep 08/10/2014 Appointment: Lita Barakat WPtel: [address] [place], [place] [phone] Annual Well Visit 08/10/2014 Patient Education: Patient Medication Summary Completed 08/10/2014 Appointment: Lita Barakat WPtel: [address] [place], [place] [phone] LAB 08/05/2014 Patient Education: Patient Medication Summary Completed 08/05/2014 Visit Plan: ECHO results reviewed Contin ue Breo and Turdoza Pt starts PT this afternoon for back--has had one epidural with no help in pain 05/05/2014 Appointment: Lita Barakat WPtel: [address] [place], [place] [phone] FOLLOW UP 05/05/2014 Patient Education: Patient Medication Summary Completed 05/05/2014 Visit Plan: Continue Breo and Turdoza Camargo s heart tests scheduled next week Will see surgeon for removal of skin cancer to neck after done with cardiac workup 03/24/2014 Appointment: Lita Barakat WPtel: [address] [place], [place] [phone] [place] FOLLOW UP 03/24/2014 Patient Education: Patient Medication Summary Completed 03/24/2014 Visit Plan: Proceed with cardiology eval uation as patient is has numerous risk factors for CAD Change Symbicort to Breo 1p BID and add Turdorza 1p BID Recheck in weeks Check 2-D ECHO and lexiscan 03/10/2014 Appointment: Lita Barakat WPtel: [address] [place], [place] [phone] FOLLOW UP 03/10/2014 Patient Education: Patient Medication Summary Completed 03/10/2014 Visit Plan: Shoulder injection as above Back brace to use when doing any lifting for stability 12/16/2013 Appointment: Lita Barakat WPtel: [address] [place] [address] ACUTE ILLNESS 12/16/2013 Patient Education: Patient Medication Summary Completed 12/16/2013 Visit Plan: Continue symbicort and Turdo za Salt water gargles Omnicef 300mg 2 po daily for 1wk Phenergan with codeine 10/09/2013 Appointment: Lita Barakat WPtel: [address] [place], [place] [phone] WORK IN 10/09/2013 Patient Education: Patient Medication Summary Completed 10/09/2013 Appointment: Ruchi Buchanan WPtel: [address] [place], [place] [phone] ACUTE ILLNESS 09/18/2013 Patient Education: Patient Medication Summary Completed 09/18/2013 Visit Plan: Check on repeat CXR Finish a bx Start Tradjenta to replace metformin 08/13/2013 Appointment: Lita Barakat WPtel: [address] [place], [place] [phone] 08/12 Hospital Follow Up 08/13/2013 Patient Education: Patient Medication Summary Completed 08/13/2013 Visit Plan: Admit to hospital 08/06/2013 Appointment: Stephanie Rios WPtel: [address] [place], [place] [phone] ACUTE ILLNESS 08/06/2013 Patient Education: Patient Medication Summary Completed 08/06/2013 Visit Plan: Continue current meds Contin ue accuchecks daily Proceed with stress test due to high risk for CAD 07/16/2013 Appointment: Lita Barakat WPtel: [address] [place], [place] [phone] FOLLOW UP 07/16/2013 Patient Education: Patient Medication Summary Completed 07/16/2013 Appointment: Lita Barakat WPtel: [address] [place] [address] LAB 06/25/2013 Patient Education: Patient Medication Summary Completed 06/25/2013 Visit Plan: prednisone and azithromycin. Doing CBC and mycoplasma blood draw. Will continue inhaler and albuterol breathing treatments. 04/09/2013 Appointment: Kimberly Villalba WPtel: [address] [place] [address] ACUTE ILLNESS 04/09/2013 Patient Education: Patient Medication Summary Completed 04/09/2013 Appointment: Lita Barakat WPtel: [address] [place] [address] ACUTE ILLNESS 02/11/2013 Patient Education: Patient Medication Summary Completed 02/11/2013 Appointment: Ruchi Buchanan WPtel: [address] [place] [address] ACUTE ILLNESS 01/31/2013 Patient Education: Patient Medication Summary Completed 01/31/2013 Visit Plan: Cefdinir and medrol dose pac k. Codeine/guiaf cough syrup. Has colonoscopy on Sunday. Pt. is to notify if fever occurs or symptoms worsen. Hydration and rest. 01/20/2013 Appointment: Kimberly Villalba WPtel: [address] [place] [address] ACUTE ILLNESS 01/20/2013 Patient Education: Patient Medication Summary Completed 01/20/2013 Visit Plan: Scopalamine patch and vestib ular exercises 12/19/2012 Appointment: Lita Barakat WPtel: [address] [place] [address] ACUTE ILLNESS 12/19/2012 Patient Education: Patient Medication Summary Completed 12/19/2012 Visit Plan: Dr. Swanson consult if no impr ovement in hearing. Pt. reports he will notify if no better in one week. Willam consult for skin lesion. 10/21/2012 Appointment: Kimberly Villalba WPtel: [address] [place], [place] [phone] ACUTE ILLNESS 10/21/2012 Patient Education: Patient Medication Summary Completed 10/21/2012 Appointment: Lita Barakat WPtel: [address] [place], [place] [phone] [place] LAB 09/19/2012 Patient Education: Patient Medication Summary Completed 09/19/2012 Visit Plan: Check fasting lab in AM--CMP , Lipids, HbA1C 09/18/2012 Appointment: Lita Barakat WPtel: [address] [place] [address] FOLLOW UP 09/18/2012 Patient Education: Patient Medication Summary Completed 09/18/2012 Appointment: Lita Barakat WPtel: [address] [place] [address] appt time scheduled sooner FOLLOW UP 09/05 Visit Plan: Doxycycline and Prednisone I ncrease SVN to QID Add back Symbicort 160/4.5 2 p BID 08/28/2012 Appointment: Lita Barakat WPtel: [address] [place] [address] FOLLOW UP 08/28/2012 Patient Education: Patient Medication Summary Completed 08/28/2012 Appointment: Lita Barakat WPtel: [address] [place], [place] [phone] Annual Well Visit 07/10/2012 Patient Education: Patient Medication Summary Completed 07/10/2012 Visit Plan: Finish Z-pack Add Nasonex Ad d Meclizine Vestibular exercises Continue current meds and accuchecks Check lab and fwup in 4mos 05/09/2012 Appointment: Lita Barakat WPtel: [address] [place], [place] [phone] number no longer works FOLLOW UP 2 Patient Education: Patient Medication Summary Completed 05/09/2012 Appointment: Lita Barakat WPtel: [address] [place], [place] [id number] [place] LAB 05/06/2012 Patient Education: Patient Medication Summary Completed 05/06/2012 Appointment: Lita Barakat WPtel: [address] [place], [place] [id number] [place] LAB 05/02/2012 Appointment: Lita Barakat WPtel: [address] [place], [place] [phone] [place] INJECTION 02/05/2012 Patient Education: Patient Medication Summary Completed 02/05/2012 Visit Plan: cefdinir. Will focus on rest and fluids. Pt. reports he is using breathing treatments as needed. Pt. will monitor for worsening symptoms or fever. 10/02/2011 Appointment: Kimberly Villalba WPtel: [address] [place], [place] [phone] ACUTE ILLNESS 10/02/2011 Patient Education: Patient Medication Summary Completed 10/02/2011 Appointment: Lita Barakat WPtel: [address] [place], [place] [id number] [place] INJECTION 08/10/2011 Patient Education: Patient Medication Summary Completed 08/10/2011 Visit Plan: Continue current meds Restar t Advair Restart exercise Flu shot given 08/07/2011 Appointment: Lita Barakat WPtel: [address] [place], [place] [id number] FOLLOW UP 08/07/2011 Patient Education: Patient Medication Summary Completed 08/07/2011 Appointment: Lita Barakat WPtel: [address] [place], [place] [id number] [place] LAB 07/26/2011 Patient Education: Patient Medication Summary Completed 07/26/2011 Visit Plan: ALEKSANDER Carmen Continue Metformin but change to BID Add Lantus 25u sc q PM BS readings in 1wk 04/03/2011 Appointment: Lita Barakat WPtel: [address] [place], [place] [phone] ACUTE ILLNESS 04/03/2011 Patient Education: Patient Medication Summary Completed 04/03/2011 Appointment: Lita Barakat WPtel: [address] [place], [place] [phone] [place] INJECTION 01/19/2011 Patient Education: Patient Medication Summary Completed 01/19/2011 Appointment: Lita Barakat WPtel: [address] [place], [place] [phone] ACUTE ILLNESS 01/18/2011 Patient Education: Patient Medication Summary Completed 01/18/2011 Appointment: Lita Barakat WPtel: [address] [place], [place] [phone] [place] INJECTION 12/21/2010 Patient Education: Patient Medication Summary Completed 12/21/2010 Appointment: Lita Barakat WPtel: [address] [place], [place] [id number] FOLLOW UP 12/19/2010 Patient Education: Patient Medication Summary Completed 12/19/2010 Appointment: Lita Barakat WPtel: [address] [place], [place] [phone] [place] LAB 12/07/2010 Patient Education: Patient Medication Summary Completed 12/07/2010 Appointment: Kimberly Villalba WPtel: [address] [place], [place] [phone] ACUTE ILLNESS 04/05/2010 Patient Education: Patient Medication Summary Completed 04/05/2010 Appointment: Lita Barakat WPtel: [address] [place], [place] [phone] [place] WORK IN 03/14/2010 Patient Education: Patient Medication Summary Completed 03/14/2010 Appointment: Lita Barakat WPtel: [address] [place], [place] [phone] [place] LAB 03/02/2010 Visit Plan: HbA1C in 3mos. Continue Accu checks BID alternating times. Switch lexapro to celexa 01/13/2010 Appointment: Lita Barakat WPtel: [address] [place], [place] [phone] FOLLOW UP 01/13/2010 Patient Education: Patient Medication Summary Completed 01/13/2010 Appointment: Lita Barakat WPtel: [address] [place], [place] [phone] FOLLOW UP 01/11/2010 Visit Plan: Pt. will continue the Avalox and Doxycycline regimen as prescribed the previous day. He has been advised to continue inhalers, breathing treatments and oxygen therapy for at least the weekend. Moderate activity without strenuous exercise. The pt. will seek immediate re-eval if his symptoms worsen. 12/23/2009 Appointment: Kimberly Villalba WPtel: [address] [place] [address] FOLLOW UP 12/23/2009 Patient Education: Patient Medication [...] tomorrow morning. 12/22/2009 Appointment: Kimberly Villalba WPtel: [address] [place], [place] [phone] ACUTE ILLNESS 12/22/2009 Patient Education: Patient Medication Summary Completed 12/22/2009 Appointment: Kimberly Villalba WPtel: [address] [place] [address] [place] FOLLOW UP 12/21/2009 Appointment: Lita Barakat WPtel: [address] [place], [place] [phone] [place] INJECTION 12/16/2009 Patient Education: Patient Medication Summary Completed 12/16/2009 Appointment: Kimberly Villalba WPtel: [phone] [id number] ACUTE ILLNESS 12/13/2009 Patient Education: Patient Medication Summary Completed 12/13/2009 Care Plan: X-RAY EXAM OF SHOULDER lt shoulder (pain ra diates across the shoulder) Hand carried orders to [facility] LOINC : 61904-4 Ordered 12/13/2009 Care Plan: X-RAY EXAM THORAC SPINE 2VWS Hand carried order LOINC : 17791-9 Ordered 12/13/2009 Care Plan: X-RAY EXAM RIBS UNI 2 VIEWS Posterior ribs of lt. side Pt. hand carries order to [facility] LOINC : 62942-0 Ordered 12/13/2009 Referral: José Miguel Swanson WPtel: [address] [address] [place] Referral Appointment Requested Referral: José Miguel Swanson WPtel: [address] [address] [place] Referral Appointment Requested Referral: Chandu Quarles WPtel: [address] Quarles for screening colonoscopy. P atient notified that [facility] office will book appt with him Initiated Referral: Santosh Machado WPtel: [address] [id number] [place] Referral Appointment Requested Referral: José Miguel Swanson WPtel: [address] [address] [place] Referral Initiated Referral: Lopez Chacon [address] [facility] C&D [id number] [place] Referral Initiated Referral: Demetrius Benjamin WPtel: [address] [address] [place] Referral Appointment Requested Referral: José Miguel Swanson WPtel: [address] [address] [place] Referral Appointment Requested Referral: José Miguel Swanson WPtel: [address] [address] [place] Referral Initiated Instructions Comment . Saline nasal flushes prn. Tylenol/Motr in prn headache. Notify if persists/symptoms worsening. . MRI at [facility] Hydrocodone 5.325 1 po q 4-6 hours prn pain #40 NR and Cyclobenzaprine (ERx) Continue warm packs for pain RTC if no improvement . May take OTC Tylenol/Ibuprofen as dire cted XRay at [facility] of left shoulder Tramadol 50mg 1 po q 6 hours prn pain called to [facility]. Sedation warning given (no driving, [...]
--- OUTSIDE RECORDS SUMMARY | 2020-03-28 16:04 | XMS REPORT | CCD ---
Author Author Leandro Barakat D.O. 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 Name Role Phone Lita Barakat D.O., PP Unavailable CCM Unavailable Summary Purpose Interface Exchange Insurance Providers Payer name Policy type / Coverage type Covered alliance party ID Effective Begin Date Effective End Date [employer] MEDICARE Medicare Part B [id number] 2019 Unknown Family history Brother Diagnosis Age At Onset Cancer Unknown Father Diagnosis Age At Onset Heart disease Unknown Mother Diagnosis Age At Onset Heart disease Unknown Social History Social History Element Codes Description Effective Dates Tobacco history SNOMED CT: 5983126 Former smoker quit 15 years ago 08/07/2011 [...] R07.9 06/22/2016 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: [...] Fill Instructions losartan 100 mg tablet RxNorm: 359341 1TD 02/03/2020 05/02/2020 Active Sinemet CR 50 mg-200 mg tablet,extended release RxNorm: 8343 41 1 Tablet(s) Oral three times a day 02/02/2020 07/31/2020 Active Generic For:*S INEMET CR 50/200 TABLET SA 07/08/2018 3:09:11 PM hydrocodone 10 mg-acetaminophen 325 mg tablet RxNorm: 252660 1 Tablet(s) Oral Q4H as needed for pain 01/29/2020 No Stop Date Active ipratropium 0.5 mg-albuterol 3 mg (2.5 mg base)/3 mL n ebulization soln RxNorm: 0748826 USE 1 VIAL IN NEBULIZER Q4H (THIS REPLACES ALBUTEROL S OLUTION) 01/08/2020 02/06/2020 Active prednisone 20 mg tablet RxNorm: 076641 1 Tablet(s) Oral two remy es a day 12/25/2019 01/01/2020 Inactive Levemir FlexTouch U-100 Insulin 100 unit/mL (3 mL) sub cutaneous pen RxNorm: 398475 10 Unit(s) Subcutaneous every night at bedtime 12/22/2019 N o Stop Date Active baclofen 10 mg tablet RxNorm: 668310 1 Tablet(s) Oral QPM for p ain/spasm 12/22/2019 01/21/2020 Inactive ipratropium 0.5 mg-albuterol 3 mg (2.5 mg base)/3 mL n ebulization soln RxNorm: 0276790 USE 1 VIAL IN NEBULIZER Q4H (THIS REPLACES ALBUTEROL S OLUTION) 11/27/2019 12/16/2019 Inactive hydrocodone 10 mg-acetaminophen 325 mg tablet RxNorm: 378466 1 Tablet(s) Oral Q4H as needed for pain 11/13/2019 01/28/2020 Inactive Seroquel 50 mg tablet RxNorm: 929883 1 Tablet(s) Oral QPM as ne eded for sleep 10/07/2019 12/21/2019 Inactive ropinirole 4 mg tablet RxNorm: 835916 3 TABLET(S) BY [facility] DAILY AT BEDTIME FOR RESTLESS LEGS 09/29/2019 12/27/2019 Inactive Generic For:REQU IP 4 MG TABLET 09/29/2019 7:52:42 AM N O T I C E Last quantity doesn't match original quantity ropinirole 4 mg tablet RxNorm: 706113 3 TABLET(S) BY [facility] DAILY AT BEDTIME FOR RESTLESS LEGS 09/26/2019 09/28/2019 Inactive Generic For:REQU IP 4 MG TABLET 09/26/2019 9:08:48 AM N O T I C E Last quantity doesn't match original quantity ipratropium 0.5 mg-albuterol 3 mg (2.5 mg base)/3 mL n ebulization soln RxNorm: 5962917 USE 1 VIAL IN NEBULIZER EVERY FOUR HOURS (THIS REPLACES ALBUTEROL SOLUTION) 09/26/2019 10/15/2019 Inactive Generic For:*DUO NEB 2.5-0.5 MG/3 ML SOLN 09/26/2019 9:08:53 AM hydrocodone 10 mg-acetaminophen 325 mg tablet RxNorm: 054726 1 Tablet(s) Oral Q4H as needed for pain 09/09/2019 09/09/2019 Inactive hydrocodone 10 mg-acetaminophen 325 mg tablet RxNorm: 776436 1 Tablet(s) Oral Q4H as needed for pain 09/09/2019 09/08/2019 Inactive ondansetron HCl 4 mg tablet RxNorm: 983369 1 Tablet(s) Oral QPM for nausea 08/12/2019 10/10/2019 Inactive ipratropium 0.5 mg-albuterol 3 mg (2.5 mg base)/3 mL n ebulization soln RxNorm: 4158907 1 Unit Dose INH Q4H 08/12/2019 09/25/2019 Inactive replaces albuterol solution Augmentin 875 mg-125 mg tablet RxNorm: 624856 1 Tablet(s) Oral two times a day 08/07/2019 08/17/2019 Inactive prednisone 20 mg tablet RxNorm: 243919 1 Tablet(s) Oral QD 08/05/2008/04/2019 Inactive prednisone 20 mg tablet RxNorm: 262160 1 Tablet(s) Oral QD 08/05/2008/06/2019 Inactive Levaquin 500 mg tablet RxNorm: 313362 1 Tablet(s) Oral QD Replaces azithromycin (z-pack) 07/31/2019 08/05/2019 Inactive Levaquin 500 mg tablet RxNorm: 528785 1 Tablet(s) Oral QD Replaces azithromycin (z-pack) 07/21/2019 07/26/2019 Inactive Levaquin 500 mg tablet RxNorm: 433654 1 Tablet(s) Oral QD Replaces azithromycin (z-pack) 07/21/2019 07/20/2019 Inactive Zithromax Z-Gui 250 mg tablet RxNorm: 142108 Tablet(s) Oral 07/22/2019 Inactive Zithromax Z-Gui 250 mg tablet RxNorm: 757712 Tablet(s) Oral 019 07/15/2019 Inactive Symbicort 160 mcg-4.5 mcg/actuation HFA aerosol inhaler RxNo rm: 6160444 2 Puff(s) Inhalation two times a day 07/14/2019 07/14/2019 Inactive Tessalon Perles 100 mg capsule RxNorm: 241166 1 Capsule(s) Oral Q8H as needed 07/14/2019 08/06/2019 Inactive Seroquel 50 mg tablet RxNorm: 220623 1 Tablet(s) Oral QPM as ne eded for sleep 07/01/2019 10/06/2019 Inactive ondansetron HCl 4 mg tablet RxNorm: 084720 1 Tablet(s) Oral QPM for nausea 06/24/2019 07/24/2019 Inactive Seroquel 25 mg tablet RxNorm: 231099 1 Tablet(s) Oral every nig ht at bedtime 06/19/2019 06/18/2019 Inactive Seroquel 25 mg tablet RxNorm: 389075 1 Tablet(s) Oral every nig ht at bedtime 06/19/2019 06/30/2019 Inactive trazodone 150 mg tablet RxNorm: 362608 1/2 Tablet(s) PO QHS as needed for sleep 06/11/2019 06/17/2019 Inactive replaces PA on doxep in trazodone 150 mg tablet RxNorm: 073015 1/2 Tablet(s) PO QHS as needed for sleep 05/12/2019 06/11/2019 Inactive replaces PA on doxep in Vitamin D3 5,000 unit tablet RxNorm: 475639 1 Tablet(s) PO QD 05/09 No Stop Date Active magnesium oxide 400 mg (241.3 mg magnesium) tablet RxNorm: 1 25145 1 Tablet(s) PO QHS 05/09/2019 No Stop Date Active cyanocobalamin (vit B-12) 1,000 mcg/mL injection solution Rx Norm: 778118 1 injection weekly for 4 weeks 1 Milliliter(s) Inj 05/09/2019 12/21/2019 Inactive ferrous sulfate 325 mg (65 mg iron) tablet RxNorm: 904945 1 Tab let(s) PO QD 05/09/2019 12/21/2019 Inactive ropinirole 4 mg tablet RxNorm: 460567 3 TABLET(S) BY [facility] DAILY AT BEDTIME FOR RESTLESS LEGS 03/26/2019 06/23/2019 Inactive Generic For:REQU IP 4 MG TABLET 03/26/2019 11:23:36 AM N O T I C E Last quantity doesn't match original quantity pantoprazole 40 mg tablet,delayed release RxNorm: 935570 Tablet(s) TAKE 1 TABLET BY MOUTH DAILY FOR STOMACH 03/24/2019 06/21/2019 Inactive Gener ic For:PROTONIX 40MG TAB EC 01/03/2019 1:23:44 PM hydroxyzine HCl 10 mg tablet RxNorm: 825394 1 Tablet(s) PO BID as needed 03/24/2019 04/06/2019 Inactive ipratropium-albuterol 0.5 mg-3 mg(2.5 mg base)/3 mL ne bulization soln RxNorm: 8688496 1 Unit Dose INH Q4H 03/21/2019 No Stop Date Active replaces albuterol solution meclizine 12.5 mg tablet RxNorm: 939539 1 Tablet(s) PO BID as neede d 03/21/2019 12/21/2019 Inactive losartan 100 mg tablet RxNorm: 187052 1 Tablet(s) PO QD replace s lisinopril 03/13/2019 09/08/2019 Inactive fluconazole 100 mg tablet RxNorm: 406635 1 Tablet(s) PO QD 03/13/20 19 03/19/2019 Inactive nystatin 100,000 unit/mL oral suspension RxNorm: 082738 5 Unit( s) PO QID 03/13/2019 03/26/2019 Inactive tramadol 50 mg tablet RxNorm: 860487 1 Tablet(s) PO TID as needed for pain TAKE 2 TABS OF EXTRA STRENGTH TYLENOL WITH EACH DOSE 03/10/2019 04/06/2019 Inactive Generic For:*ULTRAM 50 MG TABLET 01/15/2019 4:55:26 PM Sinemet CR 50 mg-200 mg tablet,extended release RxNorm: 8343 41 1 Tablet(s) PO TID 02/26/2019 08/24/2019 Inactive Generic For:*SIN EMET CR 50/200 TABLET SA 07/08/2018 3:09:11 PM trazodone 150 mg tablet RxNorm: 652443 1/2 Tablet(s) PO QHS as needed for sleep 02/13/2019 02/12/2019 Inactive trazodone 150 mg tablet RxNorm: 571090 1/2 Tablet(s) PO QHS as needed for sleep 02/13/2019 02/25/2019 Inactive replaces PA on doxep in doxepin 10 mg capsule RxNorm: 3043186 1-2 Capsule(s) PO QHS prn sleep 02/13/2019 02/13/2019 Inactive Novolog U-100 Insulin aspart 100 unit/mL subcutaneous soluti on RxNorm: 541898 INJECT 10 UNIT(S) SUBCUTANEOUSLY BEFORE MEALS 01/31/2019 05/30/2019 In active 01/31/2019 1:39:10 PM ipratropium-albuterol 0.5 mg-3 mg(2.5 mg base)/3 mL ne bulization soln RxNorm: 5256965 1 Unit Dose INH Q4H 01/17/2019 03/20/2019 Inactive replaces albuterol solution tramadol 50 mg tablet RxNorm: 938394 1 Tablet(s) PO TID as needed for pain TAKE 2 TABS OF EXTRA STRENGTH TYLENOL WITH EACH DOSE 01/15/2019 02/03/2019 Inactive Generic For:*ULTRAM 50 MG TABLET 01/15/2019 4:55:26 PM Sinemet CR 50 mg-200 mg tablet,extended release RxNorm: 8343 41 1 Tablet(s) PO BID 01/03/2019 02/25/2019 Inactive Generic For:*SIN EMET CR 50/200 TABLET SA 07/08/2018 3:09:11 PM losartan 100 mg tablet RxNorm: 102956 1 Tablet(s) PO QD replace s lisinopril 01/03/2019 03/12/2019 Inactive Symbicort 160 mcg-4.5 mcg/actuation HFA aerosol inhaler RxNo rm: 6557638 2 Puff(s) INH BID 01/03/2019 01/02/2019 Inactive pantoprazole 40 mg tablet,delayed release RxNorm: 647698 TAKE 1 TABLET BY MOUTH DAILY FOR STOMACH 01/03/2019 03/23/2019 Inactive Generic For:MI OTONIX 40MG TAB EC 01/03/2019 1:23:44 PM nystatin 100,000 unit/mL oral suspension RxNorm: 325229 Unit(s) 5 Unit(s) PO QID swish and spit 01/02/2019 11/11/2019 Inactive Incruse Ellipta 62.5 mcg/actuation powder for inhalation RxN orm: 7522524 1 Capsule(s) INH QD 12/25/2018 12/21/2019 Inactive Tessalon Perles 100 mg capsule RxNorm: 893481 1 Capsule(s) PO T ID for cough 12/25/2018 02/25/2019 Inactive Medrol (Gui) 4 mg tablets in a dose pack RxNorm: 308738 Tablet(s) PO Use as directed 12/23/2018 01/02/2019 Inactive Levemir FlexTouch U-100 Insulin 100 unit/mL (3 mL) sub cutaneous pen RxNorm: 238223 20 Unit(s) SQ QD with pen needles 12/13/2018 05/11/2019 Inactiv e prednisone 20 mg tablet RxNorm: 470113 1 Tablet(s) PO QD 12/12/2018 0 12/11/2018 Inactive prednisone 20 mg tablet RxNorm: 283356 1 Tablet(s) PO QD 12/12/2018 0 12/16/2018 Inactive promethazine 6.25 mg-codeine 10 mg/5 mL syrup RxNorm: 755745 5 Milliliter(s) PO QHS as needed for cough 12/09/2018 12/18/2018 Inactive cefdinir 300 mg capsule RxNorm: 044958 1 Capsule(s) PO BID 12/10/19 19 12/18/2018 Inactive fluconazole 100 mg tablet RxNorm: 866551 1 Tablet(s) PO QD 12/06/19 19 12/08/2018 Inactive ropinirole 4 mg tablet RxNorm: 954936 3 Tablet(s) PO QHS for re stless legs 12/04/2018 03/03/2019 Inactive Novolog U-100 Insulin aspart 100 unit/mL subcutaneous soluti on RxNorm: 607837 INJECT 10 UNIT(S) SUBCUTANEOUSLY BEFORE MEALS 12/04/2018 01/30/2019 In active 12/04/2018 10:02:42 AM nystatin 100,000 unit/mL oral suspension RxNorm: 825969 5 Unit(s) PO QID swish and spit 11/25/2018 12/18/2018 Inactive ropinirole 4 mg tablet RxNorm: 236668 3 Tablet(s) PO QHS for re stless legs 11/04/2018 12/03/2018 Inactive prednisone 20 mg tablet RxNorm: 696925 1 Tablet(s) PO BID 10/23/2018 10/29/2018 Inactive ropinirole 4 mg tablet RxNorm: 460314 3 Tablet(s) PO QHS for re stless legs 10/14/2018 11/04/2018 Inactive pantoprazole 40 mg tablet,delayed release RxNorm: 356378 1 Tablet(s) PO QD forstomach 10/10/2018 01/02/2019 Inactive Symbicort 160 mcg-4.5 mcg/actuation HFA aerosol inhaler RxNo rm: 2875298 2 Puff(s) INH BID 10/10/2018 01/03/2019 Inactive Novolog U-100 Insulin aspart 100 unit/mL subcutaneous soluti on RxNorm: 942926 INJECT 10 UNIT(S) SUBCUTANEOUSLY BEFORE MEALS 10/10/2018 12/03/2018 In active 10/10/2018 11:30:01 AM Sinemet CR 50 mg-200 mg tablet,extended release RxNorm: 8343 41 1 Tablet(s) PO BID 09/26/2018 01/03/2019 Inactive Generic For:*SIN EMET CR 50/200 TABLET SA 07/08/2018 3:09:11 PM ropinirole 4 mg tablet RxNorm: 230017 2 Tablet(s) PO QHS for re stless legs 09/18/2018 10/13/2018 Inactive metformin ER 1,000 mg tablet,extended release 24hr RxNorm: 1 838127 1 Tablet(s) PO BID 09/09/2018 12/18/2018 Inactive ropinirole 4 mg tablet RxNorm: 220998 2 Tablet(s) PO QHS for re stless legs 08/21/2018 09/17/2018 Inactive doxycycline hyclate 100 mg capsule RxNorm: 7917595 1 Capsule(s) PO BID 08/07/2018 08/13/2018 Inactive ropinirole 4 mg tablet RxNorm: 484270 1 Tablet(s) PO QHS replac es 1mg dose 08/07/2018 08/20/2018 Inactive ropinirole 2 mg tablet RxNorm: 024278 TAKE 3 TABLETS BY MOUTH DAILY AT BEDTIME DO NOT EXCEED 3 TABLETS PER DAY!!!! 07/31/2018 08/06/2018 Inactive Generic For:REQUIP 2 MG TABLET 07/30/2018 3:50:28 PM Symbicort 160 mcg-4.5 mcg/actuation HFA aerosol inhaler RxNo rm: 5394720 2 Puff(s) INH BID 07/12/2018 10/09/2018 Inactive Sinemet CR 50 mg-200 mg tablet,extended release RxNorm: 8343 41 TAKE 1 TABLET BY MOUTH TWICE DAILY 07/08/2018 09/26/2018 Inactive Generic For:*S INEMET CR 50/200 TABLET SA 07/08/2018 3:09:11 PM losartan 100 mg tablet RxNorm: 577661 1 Tablet(s) PO QD replace s lisinopril 06/17/2018 12/13/2018 Inactive Novolog U-100 Insulin aspart 100 unit/mL subcutaneous soluti on RxNorm: 636631 10 Unit(s) SQ AC 06/17/2018 10/09/2018 Inactive albuterol sulfate 2.5 mg/3 mL (0.083 %) solution for n ebulization RxNorm: 873857 Milliliter(s) INH USE 1 VIAL IN NEBULIZE R EVERY FOUR HOURS NEEDED FOR WHEEZING OR SHORTNESS OF BREATH 06/13/2018 01/16/2019 Inactive Generic For:*PROVENTIL 0.83 MG/ML SOLUTN 06/13/2013 2:04:46 PM ropinirole 2 mg tablet RxNorm: 116417 3 Tablet(s) PO QH S DO NOT EXCEED 6MG (3 TABLETS) PER DAY!!!! 06/13/2018 07/31/2018 Inactive atorvastatin 40 mg tablet RxNorm: 011625 Tablet(s) TAKE 1 TABLET BY MOUTH EVERY DAY 05/13/2018 12/18/2018 Inactive Generic For:LIPI TOR 40MG TAB 05/01/2018 8:37:31 AM Sinemet CR 50 mg-200 mg tablet,extended release RxNorm: 8343 41 1 Tablet(s) PO BID 05/08/2018 07/06/2018 Inactive Lidocaine Viscous 2 % mucosal solution RxNorm: 4109261 5 Milliliter(s) PO QID as needed 05/02/2018 08/06/2018 Inactive Diflucan 100 mg tablet RxNorm: 606747 1 Tablet(s) PO QD 05/02/2018 Inactive atorvastatin 40 mg tablet RxNorm: 043298 TAKE 1 TABLET BY MOUTH EVERY DAY 05/01/2018 05/13/2018 Inactive Generic For:LIPITOR 40MG TAB 05/01/2018 8:37:31 AM nystatin 100,000 unit/mL oral suspension RxNorm: 542660 5 Unit(s) PO QID (before meals and at bedtime) 04/24/2018 04/30/2018 Inactive Ventolin HFA 90 mcg/actuation aerosol inhaler RxNorm: 088533 2 Puff(s) INH Q4H as needed one inhaler for home and one inhaler for car 04/23/201812/18 Inactive Mucinex 600 mg tablet, extended release RxNorm: 046562 1 Tablet(s) PO BID for congestion 04/22/2018 05/21/2018 Inactive prednisone 10 mg tablet RxNorm: 607439 Tablet(s) PO as directeds 08/06/2018 Inactive ropinirole 2 mg tablet RxNorm: 653993 3 Tablet(s) PO QH S DO NOT EXCEED 6MG (3 TABLETS) PER DAY!!!! 04/09/2018 05/08/2018 Inactive gabapentin 300 mg capsule RxNorm: 437393 1-2 Capsule(s) PO QHS 02/201804/08/2018 Inactive ropinirole 2 mg tablet RxNorm: 344280 1 Tablet(s) PO QHS 03/28/2018 0 04/08/2018 Inactive gabapentin 300 mg capsule RxNorm: 099418 1-2 Capsule(s) PO QHS 02/2303/29/2018 Inactive gabapentin 300 mg capsule RxNorm: 020692 1-2 Capsule(s) PO QHS 02/2203/13/2018 Inactive gabapentin 300 mg capsule RxNorm: 305124 2 Capsule(s) PO QHS 201703/11/2018 Inactive ropinirole 2 mg tablet RxNorm: 905366 1 Tablet(s) PO QHS 02/28/2018 0 03/28/2018 Inactive ropinirole 2 mg tablet RxNorm: 658737 1 Tablet(s) PO QHS 02/28/2018 0 02/27/2018 Inactive gabapentin 300 mg capsule RxNorm: 301054 1 Capsule(s) PO QHS 201702/27/2018 Inactive pantoprazole 40 mg tablet,delayed release RxNorm: 399802 1 Tablet(s) PO QD forstomach 01/23/2018 05/22/2018 Inactive Voltaren 1 % topical gel RxNorm: 684455 1 Gram(s) TOP QID to ri ght knee 01/23/2018 02/04/2018 Inactive metformin ER 500 mg tablet,extended release 24hr RxNorm: 860 975 2 Tablet(s) PO BID 01/09/2018 12/08/2018 Inactive Requip 1 mg tablet RxNorm: 033933 1 Tablet(s) PO QHS 01/09/201802/27 Inactive prednisone 20 mg tablet RxNorm: 331448 1 Tablet(s) PO T ID for 3 days then 1 po BID for 3 days then one daily for 3 days 01/02/2018 02/03/2018 Inactiv e Levaquin 500 mg tablet RxNorm: 677498 1 Tablet(s) PO QD 01/02/2018 Inactive ProAir HFA 90 mcg/actuation aerosol inhaler RxNorm: 730671 2 Puff(s) INH Q4H as needed 12/28/2017 No Stop Date Active please switch to ventolin if insurance doesn't cover montelukast 10 mg tablet RxNorm: 916815 1 Tablet(s) PO QD 12/28/2017 02/03/2018 Inactive Levaquin 500 mg tablet RxNorm: 279390 1 Tablet(s) PO QD 12/21/2017 Inactive ProAir HFA 90 mcg/actuation aerosol inhaler RxNorm: 181092 2 Puff(s) INH Q4H as needed 12/21/2017 12/27/2017 Inactive please switch to ventolin if insurance doesn't cover doxycycline hyclate 100 mg tablet RxNorm: 533751 1 Tablet(s) PO BID 12/17/2017 12/26/2017 Inactive Levemir FlexTouch U-100 Insulin 100 unit/mL (3 mL) sub cutaneous pen RxNorm: 373038 20 Unit(s) SQ QD with pen needles---Due for labs 12/11/2017 02/03/2018 Inactive Requip 1 mg tablet RxNorm: 290023 1 Tablet(s) PO QHS 12/10/201712/09 Inactive Requip 1 mg tablet RxNorm: 811039 1 Tablet(s) PO QHS 12/10/201701/09 Inactive albuterol sulfate 2.5 mg/3 mL (0.083 %) solution for n ebulization RxNorm: 961022 Milliliter(s) INH USE 1 VIAL IN NEBULIZE R EVERY FOUR HOURS NEEDED FOR WHEEZING OR SHORTNESS OF BREATH 12/05/2017 06/13/2018 Inactive Generic For:*PROVENTIL 0.83 MG/ML SOLUTN 06/13/2013 2:04:46 PM Tudorza Pressair 400 mcg/actuation breath activated RxNorm: 2360858 1 Puff(s) INH BID 12/03/2017 12/10/2017 Inactive Levemir FlexTouch U-100 Insulin 100 unit/mL (3 mL) sub cutaneous pen RxNorm: 068212 10 Unit(s) SQ QD with pen needles---Due for labs 11/16/2017 12/10/2017 Inactive Zofran ODT 4 mg disintegrating tablet RxNorm: 393392 1 Tablet(s) PO Q4H as needed for nausea 10/17/2017 02/04/2018 Inactive Efudex 5 % topical cream RxNorm: 024894 Application TOP QD prn to precancer skin lesions 10/17/2017 02/03/2018 Inactive Sinemet CR 50 mg-200 mg tablet,extended release RxNorm: 8343 41 1 Tablet(s) PO BID 10/17/2017 02/05/2018 Inactive Sinemet CR 50 mg-200 mg tablet,extended release RxNorm: 8343 41 1 Tablet(s) PO QHS 09/25/2017 10/16/2017 Inactive gabapentin 600 mg tablet RxNorm: 344156 1 Tablet(s) PO BID 08/15/20 17 08/14/2017 Inactive gabapentin 600 mg tablet RxNorm: 285251 1 Tablet(s) PO BID 08/15/20 17 12/10/2017 Inactive Novolog U-100 Insulin aspart 100 unit/mL subcutaneous soluti on RxNorm: 750823 10 Unit(s) SQ AC 08/15/2017 02/03/2018 Inactive Novolog 100 unit/mL subcutaneous solution RxNorm: 893341 10 Uni t(s) SQ AC 08/13/2017 08/14/2017 Inactive prednisone 20 mg tablet RxNorm: 781936 2 Tablet(s) PO QD 08/02/2017 1 10/04/2016 Inactive gabapentin 600 mg tablet RxNorm: 672980 Tablet(s) 1 Tab let(s) PO QHS replaces 300mg dose 07/09/2017 08/14/2017 Inactive Breo Ellipta 100 mcg-25 mcg/dose powder for inhalation RxNor m: 4652402 1 Unit Dose INH QD 07/02/2017 08/30/2017 Inactive Tudorza Pressair 400 mcg/actuation breath activated RxNorm: 6969042 1 Puff(s) INH BID 06/18/2017 12/02/2017 Inactive gabapentin 600 mg tablet RxNorm: 066404 1 Tablet(s) PO QHS repl aces 300mg dose 06/14/2017 07/08/2017 Inactive metformin ER 1,000 mg tablet,extended release 24hr RxNorm: 1 980709 1 Tablet(s) PO BID 05/29/2017 01/08/2018 Inactive cyclobenzaprine 5 mg tablet RxNorm: 849751 1 Tablet(s) PO TID 05/2906/07/2017 Inactive metformin ER 1,000 mg tablet,extended release 24hr RxNorm: 8 64190 1 Tablet(s) PO BID 05/25/2017 05/28/2017 Inactive metformin ER 1,000 mg tablet,extended release 24hr RxNorm: 8 29555 1 Tablet(s) PO BID 05/22/2017 05/24/2017 Inactive Amaryl 2 mg tablet RxNorm: 869507 1 Tablet(s) PO BID 05/01/201702/03 Inactive glimepiride 2 mg tablet RxNorm: 350787 1 Tablet(s) PO BID 04/19/2017 02/03/2018 Inactive ferrous sulfate 325 mg (65 mg iron) tablet RxNorm: 597069 1 Tab let(s) PO QHS 04/17/2017 02/03/2018 Inactive Requip 4 mg tablet RxNorm: 820526 1 Tablet(s) PO BID 04/12/201704/11 Inactive Requip 4 mg tablet RxNorm: 366042 1 Tablet(s) PO BID 04/12/201704/15 Inactive Levemir FlexTouch 100 unit/mL (3 mL) subcutaneous insulin pe n RxNorm: 758601 10 Unit(s) SQ QD with pen needles---Due for labs 04/05/2017 11/15/2017 In active Silenor 3 mg tablet RxNorm: 083952 1 Tablet(s) PO QHS 04/05/201709/25 Inactive ropinirole 4 mg tablet RxNorm: 258067 1 Tablet(s) PO QHS 03/29/2017 0 04/01/2017 Inactive ropinirole 4 mg tablet RxNorm: 864065 1 Tablet(s) PO QHS 03/29/2017 0 03/28/2017 Inactive Requip 4 mg tablet RxNorm: 159505 1 Tablet(s) PO QHS 03/28/201704/01 Inactive gabapentin 600 mg tablet RxNorm: 967095 1 Tablet(s) PO QHS repl aces 300mg dose 03/28/2017 04/15/2017 Inactive Requip 4 mg tablet RxNorm: 259149 1 Tablet(s) PO QHS 03/23/201703/27 Inactive gabapentin 600 mg tablet RxNorm: 621741 1 Tablet(s) PO QHS 03/13/20 17 03/12/2017 Inactive gabapentin 600 mg tablet RxNorm: 835801 1 Tablet(s) PO QHS 03/13/20 17 03/27/2017 Inactive gabapentin 300 mg capsule RxNorm: 318929 1 Capsule(s) PO QPM 201603/12/2017 Inactive Generic For:NEURONTIN 300 MG CAPSULE 01/22/2017 10:10:39 AM losartan 100 mg tablet RxNorm: 454856 1 Tablet(s) PO QD replace s lisinopril 02/21/2017 06/17/2018 Inactive gabapentin 300 mg capsule RxNorm: 168575 TAKE 1 CAPSULE BY MOUT H EVERY EVENING 01/22/2017 02/21/2017 Inactive Generic For:NEURONTI N 300 MG CAPSULE 01/22/2017 10:10:39 AM gabapentin 300 mg capsule RxNorm: 014197 1 Capsule(s) PO QPM 201601/21/2017 Inactive Requip 4 mg tablet RxNorm: 468081 1 Tablet(s) PO QHS 12/21/201603/20 Inactive Effient 10 mg tablet RxNorm: 879264 1 Tablet(s) PO QD 12/12/201612/23 Inactive gabapentin 300 mg capsule RxNorm: 545925 1 Capsule(s) PO QPM 201612/03/2016 Inactive gabapentin 300 mg capsule RxNorm: 125052 1 Capsule(s) PO QPM 201612/13/2016 Inactive Requip 4 mg tablet RxNorm: 545548 1 Tablet(s) PO QHS 11/28/201612/21 Inactive atorvastatin 40 mg tablet RxNorm: 239932 Tablet(s) 1 Tablet(s) PO Q D 11/22/2016 08/18/2017 Inactive atorvastatin 40 mg tablet RxNorm: 236490 1 Tablet(s) PO QD 11/23/1911/21/2016 Inactive ropinirole 1 mg tablet RxNorm: 499101 2.5 Tablet(s) PO QPM for legs/sleep 11/14/2016 11/27/2016 Inactive nystatin 100,000 unit/mL oral suspension RxNorm: 104700 5 Unit(s) PO QID swish and spit 10/31/2016 02/03/2018 Inactive fluconazole 100 mg tablet RxNorm: 900094 1 Tablet(s) PO QD 10/31/19 17 11/09/2016 Inactive doxycycline hyclate 100 mg capsule RxNorm: 8017387 1 Capsule(s) PO BID 10/03/2016 10/12/2016 Inactive Levemir FlexTouch 100 unit/mL (3 mL) subcutaneous insulin pe n RxNorm: 072941 10 Unit(s) SQ QD with pen needles 09/18/2016 04/04/2017 Inactive amitriptyline 25 mg tablet RxNorm: 978427 1 Tablet(s) P O QHS as needed for sleep 09/04/2016 10/17/2016 Inactive ropinirole 1 mg tablet RxNorm: 091710 1.5 Tablet(s) PO QPM for legs/sleep 09/04/2016 11/13/2016 Inactive amitriptyline 25 mg tablet RxNorm: 915542 1 Tablet(s) P O QHS as needed for sleep 08/22/2016 09/03/2016 Inactive clopidogrel 75 mg tablet RxNorm: 093769 1 Tablet(s) PO QD 08/10/2016 10/17/2016 Inactive Zoloft 100 mg tablet RxNorm: 561639 2 Tablet(s) PO QHS 08/10/2016 Inactive atorvastatin 40 mg tablet RxNorm: 132925 1 Tablet(s) PO QD 08/10/20 16 10/17/2016 Inactive ropinirole 1 mg tablet RxNorm: 116903 1 Tablet(s) PO QPM for le gs/sleep 08/10/2016 09/03/2016 Inactive losartan 100 mg tablet RxNorm: 072120 1 Tablet(s) PO QD replace s lisinopril 07/20/2016 02/21/2017 Inactive Zofran 4 mg tablet RxNorm: 814647 1 Tablet(s) PO Q4H as needed for nausea 07/06/2016 10/17/2016 Inactive Flagyl 500 mg tablet RxNorm: 023185 1 Tablet(s) PO TID 07/06/2016 Inactive Plavix 75 mg tablet RxNorm: 849713 1 Tablet(s) PO QD 06/08/201607/05 Inactive isosorbide mononitrate ER 30 mg tablet,extended release 24 h r RxNorm: 091965 1 Tablet(s) PO QAM 06/08/2016 08/09/2016 Inactive atorvastatin 40 mg tablet RxNorm: 020720 1 Tablet(s) PO QD 06/08/20 16 08/09/2016 Inactive hydrochlorothiazide 12.5 mg tablet RxNorm: 552146 1 Tablet(s) PO QA M 06/08/2016 07/05/2016 Inactive metformin ER 1,000 mg tablet,extended release 24hr RxNorm: 8 20345 1 Tablet(s) PO BID 06/08/2016 09/05/2016 Inactive metoprolol tartrate 25 mg tablet RxNorm: 836912 1/2 Tablet(s) PO BI D 06/08/2016 08/09/2016 Inactive Zoloft 100 mg tablet RxNorm: 870293 2 Tablet(s) PO QHS 04/03/2016 Inactive metformin ER 1,000 mg tablet,extended release 24hr RxNorm: 8 86698 Tablet(s) 1 Tablet(s) PO QD 03/30/2016 12/18/2018 Inactive Levemir FlexTouch 100 unit/mL (3 mL) subcutaneous insulin pe n RxNorm: 965238 10 Unit(s) SQ QD 03/09/2016 03/08/2016 Inactive Levemir FlexTouch 100 unit/mL (3 mL) subcutaneous insulin pe n RxNorm: 633695 10 Unit(s) SQ QD with pen needles 03/09/2016 03/20/2016 Inactive Mobic 15 mg tablet RxNorm: 812286 1 Tablet(s) PO QD for foot pain 0 02/17/2016 03/17/2016 Inactive Zoloft 100 mg tablet RxNorm: 810787 1 1/2 Tablet(s) PO QHS 01/31/20 16 04/02/2016 Inactive omeprazole 20 mg capsule,delayed release RxNorm: 843054 TAKE 2 CAPSULES BY MOUTH EVERY DAY 01/12/2016 08/09/2016 Inactive Generic For:*CHERYL LOSEC [address] 01/12/2016 8:58:34 AM Zoloft 100 mg tablet RxNorm: 735157 1/2 Tablet(s) PO QH S for 1 week then 1 tablet po q HS 12/30/2015 01/27/2016 Inactive Ventolin HFA 90 mcg/actuation aerosol inhaler RxNorm: 784077 2 Puff(s) INH QID as needed for shortness of breath 12/30/2015 02/03/2018 Inactive [AttnRPh: Saving apply/adjudicate RxGRP:SG20 RxBIN:[id number] RxPCN: ID#:[id number]] metformin ER 1,000 mg tablet,extended release 24hr RxNorm: 8 65713 1 Tablet(s) PO QD 12/20/2015 03/18/2016 Inactive clindamycin 300 mg capsule RxNorm: 656314 1 Capsule(s) PO TID 12/0512/15/2015 Inactive mupirocin 2 % topical cream RxNorm: 211133 TOP to facial lesion s twice daily 11/15/2015 12/15/2015 Inactive cefdinir 300 mg capsule RxNorm: 581025 1 Capsule(s) PO BID 11/15/19 16 11/24/2015 Inactive Medrol (Gui) 4 mg tablets in a dose pack RxNorm: 320430 Tablet(s) PO as directed 10/11/2015 12/15/2015 Inactive albuterol sulfate 2.5 mg/3 mL (0.083 %) solution for n ebulization RxNorm: 081033 INH USE 1 VIAL IN NEBULIZER EVERY FOUR H OURS NEEDED FOR WHEEZING OR SHORTNESS OF BREATH 10/05/2015 10/04/2015 Inactive Generic For:*PRO VENTIL 0.83 MG/ML SOLUTN 06/13/2013 2:04:46 PM doxycycline hyclate 100 mg capsule RxNorm: 8999736 1 Capsule(s) PO BID 10/05/2015 10/14/2015 Inactive albuterol sulfate 2.5 mg/3 mL (0.083 %) solution for n ebulization RxNorm: 362840 Milliliter(s) INH USE 1 VIAL IN NEBULIZE R EVERY FOUR HOURS NEEDED FOR WHEEZING OR SHORTNESS OF BREATH Dx: J44.9 10/05/2015 12/05/2017 Inacti ve Generic For:*PROVENTIL 0.83 MG/ML SOLUTN 06/13/2013 2:04:46 PM albuterol sulfate 2.5 mg/3 mL (0.083 %) solution for n ebulization RxNorm: 373471 3 Milliliter(s) INH USE 1 VIAL IN NEBULI ZER EVERY FOUR HOURS NEEDED FOR WHEEZING OR SHORTNESS OF BREATH 09/06/2015 10/04/2015 Inactive Generic For:*PROVENTIL 0.83 MG/ML SOLUTN 06/13/2013 2:04:46 PM Tradjenta 5 mg tablet RxNorm: 0792940 2 Tablet(s) PO QD 07/22/2015 Inactive albuterol sulfate 2.5 mg/3 mL (0.083 %) solution for n ebulization RxNorm: 518535 3 Milliliter(s) INH USE 1 VIAL IN NEBULI ZER EVERY FOUR HOURS NEEDED FOR WHEEZING OR SHORTNESS OF BREATH 06/29/2015 09/05/2015 Inactive Generic For:*PROVENTIL 0.83 MG/ML SOLUTN 06/13/2013 2:04:46 PM albuterol sulfate 2.5 mg/3 mL (0.083 %) solution for n ebulization RxNorm: 627554 Milliliter(s) INH USE 1 VIAL IN NEBULIZE R EVERY FOUR HOURS NEEDED FOR WHEEZING OR SHORTNESS OF BREATH 06/29/2015 12/04/2017 Inactive Generic For:*PROVENTIL 0.83 MG/ML SOLUTN 06/13/2013 2:04:46 PM doxycycline hyclate 100 mg tablet RxNorm: 298845 1 Tablet(s) PO BID 06/28/2015 07/07/2015 Inactive losartan 100 mg tablet RxNorm: 101103 1 Tablet(s) PO QD -replac es lisinopril 06/14/2015 09/05/2015 Inactive metformin ER 1,000 mg tablet,extended release 24hr RxNorm: 8 27928 1 Tablet(s) PO QD 06/14/2015 09/11/2015 Inactive losartan 100 mg tablet RxNorm: 470104 1 Tablet(s) PO QD -replac es lisinopril 06/14/2015 12/10/2015 Inactive Zocor 20 mg tablet RxNorm: 274815 Tablet(s) Tablet(s) 1 Tablet(s) PO QD -needs lipids labs 06/14/2015 06/14/2015 Inactive atorvastatin 40 mg tablet RxNorm: 857854 1 Tablet(s) PO QD repl aces simvastatin 06/14/2015 12/10/2015 Inactive loratadine 10 mg tablet RxNorm: 980789 Tablet(s) 1 Tablet(s) PO QD for drainage 06/14/2015 06/07/2016 Inactive Celexa 40 mg tablet RxNorm: 812992 1 Tablet(s) PO QD TA KE ONE (1) TABLET BY MOUTH DAILY 06/14/2015 12/29/2015 Inactive Generic For:HARJINDER XA 40 MG TABLET clindamycin 300 mg capsule RxNorm: 423350 2 Capsule(s) PO BID 06/0306/12/2015 Inactive metformin ER 1,000 mg tablet,extended release 24hr RxNorm: 8 08960 1 Tablet(s) PO QD 06/03/2015 06/02/2015 Inactive metformin ER 1,000 mg tablet,extended release 24hr RxNorm: 8 24952 1 Tablet(s) PO QD 06/03/2015 06/13/2015 Inactive mupirocin 2 % topical ointment RxNorm: 364406 TOP apply to open lesion of knee twice daily 06/03/2015 01/30/2016 Inactive Zocor 20 mg tablet RxNorm: 827059 Tablet(s) 1 Tablet(s ) PO QD -needs lipids labs 05/13/2015 06/13/2015 Inactive Celexa 40 mg tablet RxNorm: 594183 1 Tablet(s) PO QD TA KE ONE (1) TABLET BY MOUTH DAILY 05/13/2015 06/13/2015 Inactive Generic For:HARJINDER XA 40 MG TABLET Zocor 20 mg tablet RxNorm: 831323 Tablet(s) 1 Tablet(s ) PO QD -needs lipids labs 02/23/2015 03/24/2015 Inactive loratadine 10 mg tablet RxNorm: 956699 1 Tablet(s) PO QD for dr saenz 12/24/2014 06/13/2015 Inactive Zocor 20 mg tablet RxNorm: 454574 1 Tablet(s) PO QD -needs lipi ds labs 11/17/2014 02/23/2015 Inactive Celexa 40 mg tablet RxNorm: 760908 1 Tablet(s) PO QD 1 Tablet(s) PO QD 1 Tablet(s) PO QD Generic OKAY 11/11/2014 05/13/2015 Inactive Zocor 20 mg tablet RxNorm: 559539 1 Tablet(s) PO QD -needs lipi ds labs 11/11/2014 11/16/2014 Inactive omeprazole 20 mg capsule,delayed release RxNorm: 469174 2 Capsule(s) PO QD TAKE 2 CAPSULES BY MOUTH DAILY 10/27/2014 04/24/2015 Inactive Generi c For:*PRILOSEC 20 MG CAPSULE trazodone 50 mg tablet RxNorm: 005589 1 1/2 Tablet(s) PO QHS 201412/29/2015 Inactive losartan 100 mg tablet RxNorm: 892281 1 Tablet(s) PO QD -replac es lisinopril 10/26/2014 04/23/2015 Inactive Levaquin 500 mg tablet RxNorm: 044968 1 Tablet(s) PO QD 10/08/2014 Inactive Levaquin 500 mg tablet RxNorm: 915792 1 Tablet(s) PO QD 10/08/2014 Inactive Diflucan 100 mg tablet RxNorm: 051621 1 Tablet(s) PO QD 10/06/2014 Inactive DuoNeb 0.5 mg-3 mg(2.5 mg base)/3 mL solution for nebulizati on RxNorm: 8066825 3 Milliliter(s) INH QID 09/23/2014 08/09/2016 Inactive Ventolin HFA 90 mcg/actuation aerosol inhaler RxNorm: 222499 2 Puff(s) INH QID as needed for shortness of breath 09/21/2014 12/29/2015 Inactive [AttnRPh: Saving apply/adjudicate RxGRP:SG20 RxBIN:[id number] RxPCN: ID#:[id number]] promethazine-codeine 6.25 mg-10 mg/5 mL syrup RxNorm: 612388 1 Teaspoon(s) PO QHS as needed for cough 09/08/2014 09/20/2014 Inactive prednisone 20 mg tablet RxNorm: 547991 1 Tablet(s) PO BID 09/02/2014 09/08/2014 Inactive promethazine-codeine 6.25 mg-10 mg/5 mL syrup RxNorm: 170618 1 Teaspoon(s) PO Q4H 09/02/2014 09/20/2014 Inactive doxycycline monohydrate 100 mg capsule RxNorm: 383707 1 Capsule (s) PO BID 09/02/2014 09/07/2014 Inactive Tessalon Perles 100 mg capsule RxNorm: 680657 1 Capsule (s) PO TID as needed for cough 08/31/2014 09/20/2014 Inactive Actos 15 mg tablet RxNorm: 384981 1 Tablet(s) PO QAM 1 Tablet(s ) PO QAM 08/26/2014 09/20/2014 Inactive loratadine 10 mg tablet RxNorm: 816324 1 Tablet(s) PO QD for dr saenz 08/26/2014 10/26/2014 Inactive Zithromax 500 mg tablet RxNorm: 462846 1 Tablet(s) PO QD 08/25/2014 1 11/01/2013 Inactive Zithromax 500 mg tablet RxNorm: 296302 1 Tablet(s) PO QD 08/25/2014 1 10/25/2013 Inactive Trazadone 75mg Tablet RxNorm: 1 Tablet(s) PO QHS 08/10/20142018 Inactive Zocor 20 mg tablet RxNorm: 351506 1 Tablet(s) PO QD 08/10/20142014 Inactive Trazadone 75mg Tablet RxNorm: 1 Tablet(s) PO QHS as need ed for sleep 08/10/2014 10/08/2014 Inactive Celexa 40 mg tablet RxNorm: 560739 1 Tablet(s) PO QD 1 Tablet(s) PO QD 1 Tablet(s) PO QD Generic OKAY 06/09/2014 10/06/2014 Inactive Actos 15 mg tablet RxNorm: 592206 1 Tablet(s) PO QAM 05/12/201408/26 Inactive lisinopril 20 mg tablet RxNorm: 706607 1 Tablet(s) PO QD 05/12/2014 0 10/26/2014 Inactive TAKE ONE TABLET BY MOUTH EVERY DAY;Gener ic For:*PRINIVIL 20 MG TABLET [AttnRPh: Saving apply/adjudicate RxGRP:SG20 RxBIN:[id number] RxPCN: ID#:[id number]] hydrocodone 5 mg-acetaminophen 325 mg tablet RxNorm: 542800 1 Tablet(s) PO TID as needed for pain for severe pain 04/30/2014 08/09/2014 Inactive hydrocodone 5 mg-acetaminophen 325 mg tablet RxNorm: 743000 1 Tablet(s) PO TID as needed for pain for severe pain 04/17/2014 04/29/2014 Inactive doxycycline hyclate 100 mg capsule RxNorm: 298650 1 Capsule(s) PO BID 03/05/2014 03/04/2014 Inactive doxycycline hyclate 100 mg capsule RxNorm: 117950 1 Capsule(s) PO BID 03/05/2014 03/14/2014 Inactive albuterol sulfate 2.5 mg/3 mL (0.083 %) solution for n ebulization RxNorm: 827525 Milliliter(s) INH USE 1 VIAL IN NEBULIZE R EVERY FOUR HOURS NEEDED FOR WHEEZING OR SHORTNESS OF BREATH 03/02/2014 06/29/2015 Inactive Generic For:*PROVENTIL 0.83 MG/ML SOLUTN 06/13/2013 2:04:46 PM Celexa 40 mg tablet RxNorm: 073624 1 Tablet(s) PO QD 1 Tablet(s) PO QD replaces lexapro. Generic OKAY 01/13/2014 06/09/2014 Inactive Actos 15 mg tablet RxNorm: 050633 1 Tablet(s) PO QAM 01/07/201405/12 Inactive lisinopril 20 mg tablet RxNorm: 169625 1 Tablet(s) PO QD 12/08/2013 0 05/12/2014 Inactive TAKE ONE TABLET BY MOUTH EVERY DAY;Gener ic For:*PRINIVIL 20 MG TABLET cefdinir 300 mg capsule RxNorm: 220704 2 Capsule(s) PO QD 11/10/2013 08/09/2014 Inactive cefdinir 300 mg capsule RxNorm: 337889 2 Capsule(s) PO QD 10/09/2013 10/15/2013 Inactive Actos 15 mg tablet RxNorm: 784053 1 Tablet(s) PO QAM 10/09/201301/06 Inactive doxycycline hyclate 100 mg capsule RxNorm: 7102897 1 Capsule(s) PO Q12H 09/18/2013 09/27/2013 Inactive omeprazole 20 mg capsule,delayed release RxNorm: 587960 2 Capsule(s) PO QD TAKE 2 CAPSULES BY MOUTH DAILY 09/03/2013 03/01/2014 Inactive Generi c For:*PRILOSEC [address] Celexa 40 mg tablet RxNorm: 631082 1 Tablet(s) PO QD re places lexapro. Generic OKAY 09/03/2013 01/13/2014 Inactive Symbicort 160 mcg-4.5 mcg/actuation HFA aerosol inhaler RxNo rm: 7270130 2 Puff(s) INH BID 08/13/2013 03/23/2014 Inactive metformin 1,000 mg tablet RxNorm: 578144 1 Tablet(s) PO BID 013 08/12/2013 Inactive TAKE ONE TABLET BY MOUTH TWI CE DAILY;Generic For:GLUCOPHAGE 1,000 MG TABLET 08/27/12 Thank you Actos 15 mg tablet RxNorm: 030340 1 Tablet(s) PO QAM 06/23/201310/09 Inactive lisinopril 20 mg tablet RxNorm: 277328 1 Tablet(s) PO QD 06/23/2013 0 12/08/2013 Inactive TAKE ONE TABLET BY MOUTH EVERY DAY;Gener ic For:*PRINIVIL 20 MG TABLET albuterol sulfate 2.5 mg/3 mL (0.083 %) solution for n ebulization RxNorm: 374204 Solution for Nebulization INH USE 1 VIAL IN NEBULIZER EVERY FOUR HOURS NEEDED FOR WHEEZING OR SHORTNESS OF BREATH 06/16/2013 03/01/2014 Inactive Generic For:*PROVENTIL 0.83 MG/ML SOLUTN 06/13/2013 2:04:46 PM prednisone 10 mg tablet RxNorm: 731580 1 Tablet(s) PO BID 04/09/2013 04/13/2013 Inactive AndroGel 1.25 gram/actuation (1%) Transdermal Gel Pump RxNorm: 2 40334 TD 04/09/2013 08/09/2014 Inactive APPLY 4 PUMPS OF GEL AT BEDTIME DIRECTED;WC (Appended: Controlled substance eRx refill - RxReferenceNumber: [id number]) azithromycin 250 mg tablet RxNorm: 416717 2 Tablet(s) PO QD 013 04/16/2013 Inactive Amaryl 2 mg tablet RxNorm: 523251 1 Tablet(s) PO BID N eeds appt in 1 month (around March 21) 02/18/2013 08/12/2013 Inactive Amaryl 2 mg tablet RxNorm: 913069 1 Tablet(s) PO BID 02/18/201302/17 Inactive metformin 1,000 mg tablet RxNorm: 294729 1 Tablet(s) PO BID 013 07/27/2013 Inactive TAKE ONE TABLET BY MOUTH TWI CE DAILY;Generic For:GLUCOPHAGE 1,000 MG TABLET 08/27/12 Thank you Actos 15 mg tablet RxNorm: 961647 1 Tablet(s) PO QAM 02/04/201306/03 Inactive albuterol sulfate 2.5 mg/3 mL (0.083 %) Neb Solution RxNorm: 764873 1 Unit Dose INH Q4H prn wheezing or shortness of breath 01/30/2013 06/15/2013 Inac tive Medrol (Gui) 4 mg tablets in a dose pack RxNorm: 740626 Tablet(s) PO as directed 01/20/2013 07/15/2013 Inactive cefdinir 300 mg capsule RxNorm: 833302 1 Capsule(s) PO BID anti biotic 01/20/2013 01/29/2013 Inactive lisinopril 20 mg tablet RxNorm: 548635 Tablet(s) PO 01/13/20132012 Inactive TAKE ONE TABLET BY MOUTH EVERY DAY;Gener ic For:*PRINIVIL 20 MG TABLET citalopram 40 mg tablet RxNorm: 892692 Tablet(s) PO 01/13/20132013 Inactive TAKE ONE (1) TABLET BY MOUTH DAILY;Gener ic For:CELEXA 40 MG TABLET omeprazole 20 mg capsule,delayed release RxNorm: 326828 Capsule(s) PO TAKE 2 CAPSULES BY MOUTH DAILY 11/15/2012 09/03/2013 Inactive Generic For:*PRILOSEC [address] amoxicillin 875 mg tablet RxNorm: 752306 1 Tablet(s) PO BID 013 10/28/2012 Inactive Actos 30 mg tablet RxNorm: 033686 1 Tablet(s) PO QD 09/23/20122011 Inactive Actos 15 mg tablet RxNorm: 839653 1 Tablet(s) PO QAM 09/23/201209/22 Inactive Actos 15 mg tablet RxNorm: 828258 1 Tablet(s) PO QAM 09/23/201202/04 Inactive prednisone 20 mg tablet RxNorm: 086947 1 Tablet(s) PO BID 08/28/2012 09/03/2012 Inactive doxycycline hyclate 100 mg tablet RxNorm: 3834622 1 Tablet(s) PO BI D 08/28/2012 09/06/2012 Inactive metformin 1,000 mg tablet RxNorm: 391880 Tablet(s) PO 08/27/201201/22 Inactive TAKE ONE TABLET BY MOUTH TWICE DAILY;Gen joshua For:GLUCOPHAGE 1,000 MG TABLET 08/27/12 Thank you citalopram 40 mg tablet RxNorm: 648154 Tablet(s) PO 07/30/20122012 Inactive TAKE ONE (1) TABLET BY MOUTH DAILY;Gener ic For:CELEXA 40 MG TABLET lisinopril 20 mg tablet RxNorm: 711790 Tablet(s) PO 07/30/20122012 Inactive TAKE ONE TABLET BY MOUTH EVERY DAY;Gener ic For:*PRINIVIL 20 MG TABLET AndroGel 1.25 gram/actuation (1%) Transdermal Gel Pump RxNor m: 8312852 Gel in Metered-Dose Pump TD 07/09/2012 04/08/2013 Inactive APPLY 4 PUM PS OF GEL AT BEDTIME DIRECTED;WC (Appended: Controlled substance eRx refill - RxReferenceNumber: [id number]) citalopram 40 mg tablet RxNorm: 547766 Tablet(s) PO 07/01/20122011 Inactive TAKE ONE (1) TABLET BY MOUTH DAILY;Gener ic For:CELEXA 40 MG TABLET metformin 1,000 mg tablet RxNorm: 609003 1 Tablet(s) PO BID 012 08/25/2012 Inactive TAKE 1 TABLET BY MOUTH TWICE DAILY;Generic For:GLUCOPHAGE 1,000 MG TABLET meclizine 25 mg Tab RxNorm: 633172 1 Tablet(s) PO QID prn dizziness 05/09/2012 05/18/2012 Inactive lisinopril 20 mg tablet RxNorm: 668324 Tablet(s) PO QD 04/22/2012 Inactive TAKE ONE (1) TABLET BY MOUTH DAILY;Gener ic For:*PRINIVIL 20 MG TABLET metformin 1,000 mg tablet RxNorm: 627774 Tablet(s) PO 03/19/201212/2011 Inactive TAKE 1 TABLET BY MOUTH TWICE DAILY;Gener ic For:GLUCOPHAGE 1,000 MG TABLET cefdinir 300 mg Cap RxNorm: 899335 1 Capsule(s) PO BID 11/28/2011 Inactive cefdinir 300 mg Cap RxNorm: 867760 1 Capsule(s) PO BID 11/01/2011 Inactive citalopram 40 mg tablet RxNorm: 722804 Tablet(s) PO 10/30/20112011 Inactive TAKE ONE (1) TABLET BY MOUTH DAILY;Gener ic For:CELEXA 40 MG TABLET cefdinir 300 mg Cap RxNorm: 787723 1 Capsule(s) PO BID 10/02/2011 Inactive metformin 1,000 mg Tab RxNorm: 841242 1 Tablet(s) PO BID 09/28/2011 0 01/25/2012 Inactive citalopram 40 mg Tab RxNorm: 974893 1 Tablet(s) PO QD 09/28/201111/2011 Inactive omeprazole 20 mg capsule,delayed release RxNorm: 388937 2 Capsu le(s) PO QD 09/28/2011 03/25/2012 Inactive lisinopril 20 mg Tab RxNorm: 691141 Tablet(s) PO 08/21/2011 04/21/2012 Inactive TAKE ONE (1) TABLET BY MOUTH DAILY;Generic For:*PRINIVIL 20 MG TABLET AndroGel 1.25 gram/actuation (1%) Transdermal Gel Pump RxNor m: [id number] Gel in Metered-dose Pump TD 08/21/2011 07/09/2012 Inactive APPLY 4 PUM PS OF GEL AT BEDTIME DIRECTED (Appended: Controlled substance eRx refill - RxReferenceNumber: [id number]) Lantus Solostar 100 unit/mL (3 mL) Sub-Q Insulin Pen RxNorm: 427006 30 Unit(s) SQ QD 06/20/2011 05/08/2012 Inactive Lantus Solostar 100 unit/mL (3 mL) Sub-Q Insulin Pen RxNorm: 751193 30 Unit(s) SQ QD 06/19/2011 06/19/2011 Inactive metformin 1,000 mg Tab RxNorm: 117841 1 Tablet(s) PO BID 05/12/2011 1 11/09/2010 Inactive citalopram 40 mg Tab RxNorm: 091576 1 Tablet(s) PO QD 03/06/201105/2011 Inactive metformin 1,000 mg Tab RxNorm: 531601 1 Tablet(s) PO BID 12/27/2010 0 04/25/2011 Inactive lisinopril 20 mg Tab RxNorm: 721426 Tablet(s) PO TAKE 1 TABLET BY MOUTH EVERY DAY;Generic For:*PRINIVIL 20 MG TABLET 12/26/2010 08/20/2011 Inactive Ceftin 500 mg Tab RxNorm: 184595 1 Tablet(s) PO BID 12/19/20102010 Inactive omeprazole 20 mg Cap, Delayed Release RxNorm: 511248 2 Capsule( s) PO QD 09/13/2010 03/11/2011 Inactive Byetta 10 mcg/0.04 mL per dose Sub-Q Pen Injector RxNorm: 84 7913 1 Unit Dose SQ BID 09/07/2010 10/06/2010 Inactive Celexa 40 mg tablet RxNorm: 190536 1 Tablet(s) PO QD re places lexapro. Generic OKAY 08/09/2010 02/04/2011 Inactive Actos 30 mg Tab RxNorm: 429684 1 Tablet(s) PO QD 08/09/2010 04/02/2011 Inactive lisinopril 20 mg Tab RxNorm: 356294 1 Tablet(s) PO QD 08/09/201011/22 Inactive metformin 1,000 mg Tab RxNorm: 530205 1 Tablet(s) PO BID 08/09/2010 0 12/06/2010 Inactive Metformin 1,000 mg Tab RxNorm: 428705 1 Tablet(s) PO BID 04/26/2010 0 04/25/2010 Inactive metformin 1,000 mg Tab RxNorm: 243506 1 Tablet(s) PO BID 04/26/2010 1 Inactive Lomotil 2.5 mg-0.025 mg Tab RxNorm: 8173034 1 Tablet(s) PO TID 1-2 TABS THREE TIMES DAILY 04/05/2010 04/07/2010 Inactive Mupirocin 2 % Topical Cream RxNorm: 575168 TOP BID 04/05/201003/25 Inactive lisinopril 20 mg Tab RxNorm: 405197 1 Tablet(s) PO QD 03/29/201010/2009 Inactive Actos 30 mg Tab RxNorm: 429897 1 Tablet(s) PO QD 03/29/2010 07/26/2010 Inactive Lisinopril 20 mg Tab RxNorm: 324351 1 Tablet(s) PO QD 02/27/201001/2010 Inactive Actos 30 mg Tab RxNorm: 037698 1 Tablet(s) PO QD 02/14/2010 03/28/2010 Inactive Celexa 40 mg Tab RxNorm: 149913 1 Tablet(s) PO QD replaces lexapro 01/13/2010 07/11/2010 Inactive Cyclobenzaprine 10 mg Tab RxNorm: 356844 1 Tablet(s) PO TID prn spasm 12/23/2009 01/21/2010 Inactive Cyclobenzaprine 10 mg Tab RxNorm: 387761 1 Tablet(s) PO TID 010 12/22/2009 Inactive Hydrocodone-Acetaminophen 7.5 mg-750 mg Tab RxNorm: 628395 1 Ta blet(s) PO Q4-6H 12/23/2009 12/22/2009 Inactive aspirin 81 mg tablet RxNorm: 330613 1 Tablet(s) PO QD No Start Date Active isosorbide mononitrate ER 60 mg tablet,extended release 24 h r RxNorm: 533733 1 Tablet(s) PO QD No Start Date Active amlodipine 5 mg tablet RxNorm: 589336 1 Tablet(s) PO QD No Start Date Active Vitamin D3 1,000 unit tablet RxNorm: 167207 3 Tablet(s) PO QD No St art Date 10/26/2014 Inactive Lexapro 20 mg Tab RxNorm: 122270 1 Tablet(s) PO QD No Start Date 12/24 Inactive loperamide 2 mg tablet RxNorm: 868773 Tablet(s) PO PRN No Start Date 06/07/2016 Inactive Levemir FlexTouch U-100 Insulin 100 unit/mL (3 mL) sub cutaneous pen RxNorm: 498645 22 Unit(s) SQ QD No Start Date 12/21/2019 Inactive Janumet 50 mg-1,000 mg Tab RxNorm: 301757 1 Tablet(s) PO BID No Sta rt Date 01/12/2010 Inactive Levemir U-100 Insulin 100 unit/mL subcutaneous solution RxNo rm: 777293 10 Unit(s) SQ QHS No Start Date 12/08/2018 Inactive Medrol (Gui) 4 mg tablets in a dose pack RxNorm: 413569 Tablet(s) PO Use as directed No Start Date 12/22/2018 Inactive aspirin 325 mg tablet RxNorm: 696419 1 Tablet(s) PO QD No Start Date 08/09/2016 Inactive Efudex 5 % Topical Cream RxNorm: 118861 Application TOP QD prn fto skin lesion No Start Date 08/12/2013 Inactive nitroglycerin 0.4 mg sublingual tablet RxNorm: 733060 Tablet(s) SL as needed No Start Date 12/18/2018 Inactive levofloxacin 500 mg tablet RxNorm: 964094 1 Tablet(s) PO QD No Star t Date 08/06/2018 Inactive ferrous sulfate 325 mg (65 mg iron) tablet RxNorm: 205013 1 Tab let(s) PO QHS No Start Date 04/16/2017 Inactive fluorouracil 5 % topical cream RxNorm: 529796 1 TOP No Start James e 08/06/2018 Inactive Vitamin D3 1,000 unit capsule RxNorm: 130694 1 Capsule(s) PO QD No Start Date 02/03/2018 Inactive Hydrocodone-Acetaminophen 7.5 mg-750 mg Tab RxNorm: 801714 1 Ta blet(s) PO PRN No Start Date 08/09/2014 Inactive pantoprazole 40 mg tablet,delayed release RxNorm: 128134 1 Tabl et(s) PO QD No Start Date 01/22/2018 Inactive omeprazole 20 mg Cap, Delayed Release RxNorm: 761839 2 Capsule( s) PO QD No Start Date 09/12/2010 Inactive DuoNeb 0.5 mg-3 mg(2.5 mg base)/3 mL solution for nebulizati on RxNorm: 5141741 INH Q4H as needed No Start Date 10/22/2018 Inactive Lyrica 75 mg capsule RxNorm: 877176 2 Capsule(s) PO QHS No Start Da te 03/09/2019 Inactive isosorbide mononitrate ER 30 mg tablet,extended release 24 h r RxNorm: 903187 1 Tablet(s) PO QD No Start Date 12/08/2018 Inactive Tradjenta 5 mg tablet RxNorm: 4561763 1 Tablet(s) PO QD No Start Da te 08/09/2016 Inactive Tudorza Pressair 400 mcg/actuation breath activated RxNorm: 2055917 1 Puff(s) INH BID No Start Date 06/17/2017 Inactive Lantus Solostar 100 unit/mL (3 mL) Sub-Q Insulin Pen RxNorm: 579622 30 Unit(s) SQ QD No Start Date 06/18/2011 Inactive Requip 4 mg tablet RxNorm: 901537 1 Tablet(s) PO BID No Start Date Inactive Symbicort 160 mcg-4.5 mcg/actuation HFA aerosol inhaler RxNo rm: 4680497 2 Puff(s) INH BID No Start Date 07/11/2018 Inactive atorvastatin 40 mg tablet RxNorm: 343323 1 Tablet(s) PO QD No Start Date 12/18/2018 Inactive tramadol 50 mg tablet RxNorm: 914855 1 Tablet(s) PO TID as needed for pain (take alone with two extra strength tylenol) No Start Date 01/16/2019 Inactive Symbicort 160 mcg-4.5 mcg/actuation HFA aerosol inhaler RxNo rm: 1435931 2 Puff(s) INH BID No Start Date 08/12/2013 Inactive Vitamin D3 5,000 unit tablet RxNorm: 524835 1 Tablet(s) PO QD No St art Date 05/08/2019 Inactive albuterol sulfate 2.5 mg/3 mL (0.083 %) Neb Solution RxNorm: 876757 1 Unit Dose INH Q4H prn wheezing or shortness of breath No Start Date 01/29/2013 Inac tive Ranexa 500 mg tablet,extended release RxNorm: 204258 1 Tablet(s ) PO BID No Start Date 02/03/2018 Inactive Advair Diskus 500 mcg-50 mcg/dose powder for inhalation RxNo rm: 3781539 1 Puff(s) INH BID No Start Date 08/09/2016 Inactive clopidogrel 75 mg tablet RxNorm: 896629 1 Tablet(s) PO QD No Start Date 05/01/2018 Inactive metformin 1,000 mg Tab RxNorm: 280959 1 Tablet(s) PO BID No Start D ate 08/12/2013 Inactive Silenor 3 mg tablet RxNorm: 486328 1 Tablet(s) PO QHS No Start Date 0 04/04/2017 Inactive Medrol (Gui) 4 mg tablets in a dose pack RxNorm: 143362 Tablet(s) PO as directed No Start Date 01/19/2013 Inactive Requip 4 mg tablet RxNorm: 862251 1 Tablet(s) PO BID No Start Date Inactive clopidogrel 75 mg tablet RxNorm: 667774 1 Tablet(s) PO QD No Start Date 02/03/2018 Inactive Tradjenta 5 mg tablet RxNorm: 5511939 1 Tablet(s) PO QD No Start Da te 02/03/2018 Inactive ProAir HFA 90 mcg/Actuation Aerosol Inhaler RxNorm: 066881 2 Pu ff(s) INH PRN No Start Date 07/09/2012 Inactive Tessalon Perles 100 mg capsule RxNorm: 502757 1 Capsule (s) PO TID as needed for cough No Start Date 08/30/2014 Inactive ferrous sulfate 325 mg (65 mg iron) tablet RxNorm: 658748 1 Tab let(s) PO QD No Start Date 05/08/2019 Inactive pioglitazone 15 mg tablet RxNorm: 802896 1 Tablet(s) PO QD No Start Date 09/20/2014 Inactive Lexapro Oral RxNorm: Oral No Start Date 12/13/2009 Inactive Breo Ellipta 100 mcg-25 mcg/dose powder for inhalation RxNor m: 4378382 1 Puff(s) INH BID No Start Date 05/31/2015 Inactive Tylenol Extra Strength 500 mg tablet RxNorm: 103454 2 T ablet(s) PO QHS along with ropironole No Start Date 12/18/2018 Inactive tramadol 50 mg tablet RxNorm: 420644 1 Tablet(s) PO QID as need ed for pain No Start Date 12/24/2018 Inactive cyclobenzaprine 10 mg Tab RxNorm: 447895 Oral No Start Date 12/22 Inactive Levemir FlexTouch 100 unit/mL (3 mL) subcutaneous insulin pe n RxNorm: 854239 10 Unit(s) SQ QD No Start Date 03/08/2016 Inactive amlodipine 5 mg tablet RxNorm: 218932 1 Tablet(s) PO QD No Start Da te 08/09/2016 Inactive Novolog 100 unit/mL subcutaneous solution RxNorm: 466279 10 Uni t(s) SQ AC No Start Date 08/12/2017 Inactive Levemir FlexTouch 100 unit/mL (3 mL) subcutaneous insulin pe n RxNorm: 709115 25 Unit(s) SQ QPM No Start Date 08/06/2018 Inactive Farxiga 5 mg tablet RxNorm: 4721022 1 Tablet(s) PO QD No Start Date 0 10/05/2014 Inactive DuoNeb 0.5 mg-3 mg(2.5 mg base)/3 mL solution for nebulizati on RxNorm: 0537630 inhalation No Start Date 09/23/2014 Inactive Doxycycline 100 mg Cap RxNorm: 681901 1 Capsule(s) PO BID No Start Date 12/18/2010 Inactive Vitamin B12 1000mcg Tablet RxNorm: 1 Tablet(s) PO QD No Start Date 02/03/2018 Inactive Hydrocodone-Acetaminophen 7.5 mg-750 mg Tab RxNorm: 368951 1 Ta blet(s) PO Q6-8H No Start Date 12/22/2009 Inactive Xigduo XR 5 mg-1,000 mg tablet,extended release RxNorm: 1593 833 1 Tablet(s) PO QD No Start Date 05/31/2015 Inactive cyanocobalamin (vit B-12) 1,000 mcg/mL injection solution Rx Norm: 786640 1 injection weekly for 4 weeks 1 Milliliter(s) Inj No Start Date 05/08/2019 Inactive AndroGel 1.25 g/Actuation (1%) Transdermal Gel Pump RxNorm: 6293558 TD Apply 4pumps daily No Start Date 08/21/2011 Inactive Actoplus MET 15 mg-850 mg Tab RxNorm: 934092 1 Tablet(s) PO BID No Start Date 12/18/2010 Inactive Amaryl 2 mg tablet RxNorm: 026854 1 Tablet(s) PO BID No Start Date Inactive Levemir FlexTouch 100 unit/mL (3 mL) subcutaneous insulin pe n RxNorm: 020787 20 Unit(s) SQ QD No Start Date 06/12/2016 Inactive Symbicort 160 mcg-4.5 mcg/actuation HFA aerosol inhaler RxNo rm: 9846429 2 Puff(s) INH BID No Start Date 02/03/2018 Inactive Symbicort 160 mcg-4.5 mcg/Actuation Inhalation HFA Aer osol Inhaler RxNorm: 0013839 2 INH BID No Start Date 12/18/2010 Inactive Farxiga 5 mg tablet RxNorm: 1664879 1 Tablet(s) PO QD No Start Date 0 03/01/2015 Inactive magnesium oxide 400 mg (241.3 mg magnesium) tablet RxNorm: 1 54528 1 Tablet(s) PO QHS No Start Date 05/08/2019 Inactive Tradjenta 5 mg tablet RxNorm: 5923956 2 Tablet(s) PO QD No Start Da te 07/21/2015 Inactive Levemir FlexTouch U-100 Insulin 100 unit/mL (3 mL) sub cutaneous pen RxNorm: 382919 40 Unit(s) SQ QD No Start Date 08/06/2018 Inactive Sinemet CR 50 mg-200 mg tablet,extended release RxNorm: 8343 41 1 Tablet(s) PO QHS No Start Date 09/24/2017 Inactive metoprolol tartrate 25 mg tablet RxNorm: 768947 1/2 Tablet(s) P O BID No Start Date 02/03/2018 Inactive Requip 4 mg tablet RxNorm: 055515 1 Tablet(s) PO QHS No Start Date Inactive Ventolin HFA 90 mcg/actuation aerosol inhaler RxNorm: 494530 2 Puff(s) INH Q4H as needed No Start Date 04/22/2018 Inactive B12 5,000 mcg-100 mcg sublingual lozenge RxNorm: 911399 IM as d irected No Start Date 05/08/2019 Inactive ropinirole 1 mg tablet RxNorm: 595516 1 Tablet(s) PO QHS No Start D ate 08/06/2018 Inactive Percocet 5 mg-325 mg tablet RxNorm: 4121938 1 Tablet(s) PO Q4H as needed for pain (Dr Rizzo) No Start Date 10/22/2018 Inactive hydrocodone 5 mg-acetaminophen 325 mg tablet RxNorm: 491197 1 Tablet(s) PO TID as needed for pain for severe pain No Start Date 04/16/2014 Inactive scopolamine 1.5 mg 72 hr Transderm Patch RxNorm: 991197 Application TD Q72H for dizziness No Start Date 08/12/2013 Inactive ipratropium-albuterol 0.5 mg-3 mg(2.5 mg base)/3 mL ne bulization soln RxNorm: 0499480 1 Unit Dose INH Q4H No Start Date 01/16/2019 Inactive Medication Administered No Medication Administered data Immunizations Vaccine Codes Date Status Influenza CVX: 135 08/07/2019 Complete Pneumococcal CVX: 33 07/24/2017 Complete Influenza CVX: 135 06/13/2016 Complete Pneumococcal CVX: 133 06/13/2016 Complete Influenza CVX: 141 07/10/2012 Pneumovax Unknown 07/10/2012 Results Observation Observation Code Item Item Code Result Date S ervice Location COMPLETE BLOOD COUNT [id number] WBC 5.5 10e9/L 06/17/20 19 Unknown COMPLETE BLOOD COUNT [id number] RBC 3.92 10e12/L 2018 Unknown COMPLETE BLOOD COUNT [id number] HEMOGLOBIN 10.9 g/dL 06/17/20 19 Unknown COMPLETE BLOOD COUNT [id number] HEMATOCRIT 34.8 % 06/17/20 19 Unknown COMPLETE BLOOD COUNT 1877805 MCV 88.8 fL 9 Unknown COMPLETE BLOOD COUNT 7114698 MCH 27.8 pg 9 Unknown COMPLETE BLOOD COUNT 6874482 MCHC 31.3 g/dL 9 Unknown COMPLETE BLOOD COUNT 8888078 PLATELET COUNT 239 10e9/L Unknown COMPLETE BLOOD COUNT 9754232 Mean Plt Volume 10.0 fL Unknown COMPLETE BLOOD COUNT 4054711 Neut Auto 68.0 % 9 Unknown COMPLETE BLOOD COUNT 3815838 Lymph Auto 14.8 % 06/17/20 19 Unknown COMPLETE BLOOD COUNT 6417469 Grand Auto 13.1 % 9 Unknown COMPLETE BLOOD COUNT 8729272 RDW 14.7 % 9 Unknown COMPLETE BLOOD COUNT 6695233 Eos Auto 3.6 % 9 Unknown COMPLETE BLOOD COUNT 3026850 Baso Auto 0.5 % 9 Unknown COMPLETE BLOOD COUNT 1549616 Neutrophil Abs 3.74 10e9/L Unknown COMPLETE BLOOD COUNT 7344927 Lymphocyte Abs 0.81 10e9/L Unknown COMPLETE BLOOD COUNT 0417229 Monocyte Abs 0.72 10e9/L 05/26 Unknown COMPLETE BLOOD COUNT 1666534 Eosinophil Abs 0.20 10e9/L Unknown COMPLETE BLOOD COUNT 1943182 RDW-SD 46.4 fL 9 Unknown COMPLETE BLOOD COUNT 4796354 Basophil Abs 0.03 10e9/L 05/26 Unknown IRON 79058 Iron 36 ug/dL 06/17/2019 Unknown VITAMIN B 12 40288 VITAMIN B12 540 pg/mL 06/17/2019 Unkn own GFR CALC 7398070 GFR Non Afr Amr 59 mL/min 06/17/2019 Unk nown GFR CALC 2634531 GFR Afr Amr >60 mL/min 06/17/2019 Unknow n ERYTHROCYTE SEDIMENTATION RATE 17254 Sed Rate 34 mm/hr 06/17/2019 Unknown THYROID STIMULATING HORMONE 26943 TSH 2.217 uIU/mL 06/17/2019 Unknown COMPREHENSIVE METABOLIC 16718 AST 12 U/L 2018 Unknown COMPREHENSIVE METABOLIC 86729 ALT 11 U/L 2018 Unknown COMPREHENSIVE METABOLIC 33032 BUN 17 mg/dL 2018 Unknown COMPREHENSIVE METABOLIC 37435 ALBUMIN 3.9 g/dL 2018 Unknown COMPREHENSIVE METABOLIC 32827 CHLORIDE 103 mmol/L 06/17 Unknown COMPREHENSIVE METABOLIC 01156 Bili Total 0.4 mg/dL 06/17 Unknown COMPREHENSIVE METABOLIC 52320 ALK PHOS 51 U/L 2018 Unknown COMPREHENSIVE METABOLIC 09377 SODIUM 140 mmol/L 06/17 Unknown COMPREHENSIVE METABOLIC 13314 CREATININE 1.20 mg/dL 05/26 Unknown COMPREHENSIVE METABOLIC 91784 CALCIUM 8.9 mg/dL 2018 Unknown COMPREHENSIVE METABOLIC 34244 POTASSIUM 4.5 mmol/L 06/17 Unknown COMPREHENSIVE METABOLIC 32217 Total Protein 6.1 g/dL Unknown COMPREHENSIVE METABOLIC 97944 Glucose 108 mg/dL 2018 Unknown COMPREHENSIVE METABOLIC 03760 Bicarbonate 27 mmol/L 05/26 Unknown COMPREHENSIVE METABOLIC 64498 AGAP 10 mmol/L 2018 Unknown FERRITIN 10978 FERRITIN 35.5 ng/mL 05/08/2019 Unknown VITAMIN D TOTAL (25 HYDROXY) 42468 Vitamin D 25 OH 26.0 ng/mL 05/08/2019 Unknown GLYCOSYLATED HEMOGLOBIN TEST 92471 Hgb A1c 87662-4 8.2 % 0 05/08/2019 Unknown MEAN GLUC 4496939 Calc Mean Gluc 189 mg/dL 05/08/2019 Unkn own GFR CALC 7857334 GFR Non Afr Amr >60 mL/min 05/08/2019 Un known GFR CALC 2346125 GFR Afr Amr >60 mL/min 05/08/2019 Unknow n VITAMIN B 12 78501 VITAMIN B12 197 pg/mL 05/08/2019 Unkn own IRON 38447 Iron 34 ug/dL 05/08/2019 Unknown COMPLETE BLOOD COUNT 0351275 WBC 6.9 10e9/L 05/08/20 19 Unknown COMPLETE BLOOD COUNT 8763271 RBC 3.95 10e12/L 2018 Unknown COMPLETE BLOOD COUNT 8093148 HEMOGLOBIN 11.1 g/dL 05/08/20 19 Unknown COMPLETE BLOOD COUNT 9193458 HEMATOCRIT 34.9 % 05/08/20 19 Unknown COMPLETE BLOOD COUNT 0141337 MCV 88.4 fL 9 Unknown COMPLETE BLOOD COUNT 3756868 MCH 28.1 pg 9 Unknown COMPLETE BLOOD COUNT 9556688 MCHC 31.8 g/dL 9 Unknown COMPLETE BLOOD COUNT 6968097 PLATELET COUNT 217 10e9/L Unknown COMPLETE BLOOD COUNT 6268385 Mean Plt Volume 9.6 fL Unknown COMPLETE BLOOD COUNT 2258865 Neut Auto 77.6 % 9 Unknown COMPLETE BLOOD COUNT 6004197 Lymph Auto 10.7 % 05/08/20 19 Unknown COMPLETE BLOOD COUNT 7325934 Grand Auto 10.4 % 9 Unknown COMPLETE BLOOD COUNT 4312127 RDW 14.7 % 9 Unknown COMPLETE BLOOD COUNT 6711098 Eos Auto 1.2 % 9 Unknown COMPLETE BLOOD COUNT 1974971 Baso Auto 0.1 % 9 Unknown COMPLETE BLOOD COUNT 0696554 Neutrophil Abs 5.35 10e9/L Unknown COMPLETE BLOOD COUNT 2798734 Lymphocyte Abs 0.74 10e9/L Unknown COMPLETE BLOOD COUNT 7080543 Monocyte Abs 0.72 10e9/L 04/24 Unknown COMPLETE BLOOD COUNT 7686227 Eosinophil Abs 0.08 10e9/L Unknown COMPLETE BLOOD COUNT 9384226 RDW-SD 46.6 fL 9 Unknown COMPLETE BLOOD COUNT 5079085 Basophil Abs 0.01 10e9/L 04/24 Unknown COMPREHENSIVE METABOLIC 74136 AST 13 U/L 2018 Unknown COMPREHENSIVE METABOLIC 43425 ALT 9 U/L 2018 Unknown COMPREHENSIVE METABOLIC 11075 BUN 18 mg/dL 2018 Unknown COMPREHENSIVE METABOLIC 58938 ALBUMIN 4.3 g/dL 2018 Unknown COMPREHENSIVE METABOLIC 67180 CHLORIDE 99 mmol/L 2018 Unknown COMPREHENSIVE METABOLIC 09525 Bili Total 0.4 mg/dL 05/08 Unknown COMPREHENSIVE METABOLIC 42087 ALK PHOS 48 U/L 2018 Unknown COMPREHENSIVE METABOLIC 86837 SODIUM 137 mmol/L 05/08 Unknown COMPREHENSIVE METABOLIC 82012 CREATININE 0.79 mg/dL 04/24 Unknown COMPREHENSIVE METABOLIC 66645 CALCIUM 9.5 mg/dL 2018 Unknown COMPREHENSIVE METABOLIC 68254 POTASSIUM 4.0 mmol/L 05/08 Unknown COMPREHENSIVE METABOLIC 18158 Total Protein 6.3 g/dL Unknown COMPREHENSIVE METABOLIC 05623 Glucose 232 mg/dL 2018 Unknown COMPREHENSIVE METABOLIC 93555 Bicarbonate 27 mmol/L 04/24 Unknown COMPREHENSIVE METABOLIC 87877 AGAP 11 mmol/L 2018 Unknown GLYCOSYLATED HEMOGLOBIN TEST 46548 Hgb A1c 09318-7 8.9 % 0 12/10/2018 Unknown MEAN GLUC 4859078 Calc Mean Gluc 209 mg/dL 12/10/2018 Unkn own LIPID GROUP 76251 Cholesterol 145 mg/dL 12/09/2018 Unkno wn LIPID GROUP 57482 Triglyceride 235 mg/dL 12/09/2018 Unkn own LIPID GROUP 17310 HDL CHOLESTEROL 40 mg/dL 12/09/2018 U nknown LIPID GROUP 08742 Chol/HDL Ratio 3.62 ratio 12/09/2018 U nknown LIPID GROUP 14933 NON-HDL Chol 105 mg/dL 12/09/2018 Unkn own LIPID GROUP 41548 LDL Cholesterol 58 mg/dL 12/09/2018 U nknown THYROID STIMULATING HORMONE 90319 TSH 1.071 uIU/mL 12/09/2018 Unknown GFR CALC 3539713 GFR Non Afr Amr >60 mL/min 12/09/2018 Un known GFR CALC 7665190 GFR Afr Amr >60 mL/min 12/09/2018 Unknow n COMPLETE BLOOD COUNT 3089910 WBC 7.6 10e9/L 12/10/19 19 Unknown COMPLETE BLOOD COUNT 4062328 RBC 3.97 10e12/L 2018 Unknown COMPLETE BLOOD COUNT 4143241 HEMOGLOBIN 11.4 g/dL 12/10/19 19 Unknown COMPLETE BLOOD COUNT 4135156 HEMATOCRIT 35.8 % 12/10/19 19 Unknown COMPLETE BLOOD COUNT 4998000 MCV 90.2 fL 9 Unknown COMPLETE BLOOD COUNT 3019297 MCH 28.7 pg 9 Unknown COMPLETE BLOOD COUNT 1415389 MCHC 31.8 g/dL 9 Unknown COMPLETE BLOOD COUNT 2084240 PLATELET COUNT 200 10e9/L Unknown COMPLETE BLOOD COUNT 5414844 Mean Plt Volume 10.1 fL Unknown COMPLETE BLOOD COUNT 5378300 Neut Auto 79.0 % 9 Unknown COMPLETE BLOOD COUNT 5262694 Lymph Auto 8.3 % 12/10/19 19 Unknown COMPLETE BLOOD COUNT 7867499 Grand Auto 10.8 % 9 Unknown COMPLETE BLOOD COUNT 0728100 RDW 14.6 % 9 Unknown COMPLETE BLOOD COUNT 9129084 Eos Auto 1.5 % 9 Unknown COMPLETE BLOOD COUNT 7570731 Baso Auto 0.4 % 9 Unknown COMPLETE BLOOD COUNT 6307749 Neutrophil Abs 6.00 10e9/L Unknown COMPLETE BLOOD COUNT 0817052 Lymphocyte Abs 0.63 10e9/L Unknown COMPLETE BLOOD COUNT 4341793 Monocyte Abs 0.82 10e9/L 11/22 Unknown COMPLETE BLOOD COUNT 7400316 Eosinophil Abs 0.11 10e9/L Unknown COMPLETE BLOOD COUNT 0462922 RDW-SD 46.9 fL 9 Unknown COMPLETE BLOOD COUNT 5551520 Basophil Abs 0.03 10e9/L 11/22 Unknown COMPREHENSIVE METABOLIC 52195 AST 11 U/L 2018 Unknown COMPREHENSIVE METABOLIC 46846 ALT 11 U/L 2018 Unknown COMPREHENSIVE METABOLIC 43033 BUN 21 mg/dL 2018 Unknown COMPREHENSIVE METABOLIC 70303 ALBUMIN 4.7 g/dL 2018 Unknown COMPREHENSIVE METABOLIC 89534 CHLORIDE 99 mmol/L 2018 Unknown COMPREHENSIVE METABOLIC 07895 Bili Total 0.4 mg/dL 12/09 Unknown COMPREHENSIVE METABOLIC 05067 ALK PHOS 73 U/L 2018 Unknown COMPREHENSIVE METABOLIC 28666 SODIUM 137 mmol/L 12/09 Unknown COMPREHENSIVE METABOLIC 24098 CREATININE 1.12 mg/dL 11/22 Unknown COMPREHENSIVE METABOLIC 85432 CALCIUM 9.4 mg/dL 2018 Unknown COMPREHENSIVE METABOLIC 22676 POTASSIUM 4.2 mmol/L 12/09 Unknown COMPREHENSIVE METABOLIC 48695 Total Protein 6.8 g/dL Unknown COMPREHENSIVE METABOLIC 04185 Glucose 194 mg/dL 2018 Unknown COMPREHENSIVE METABOLIC 64314 Bicarbonate 30 mmol/L 11/22 Unknown COMPREHENSIVE METABOLIC 28020 AGAP 8 mmol/L 2018 Unknown FREE T4 95805 T4 Free 0.86 ng/dL 12/09/2018 Unknown COMPLETE BLOOD COUNT 5459065 WBC 6.8 10e9/L 04/17/20 17 Unknown COMPLETE BLOOD COUNT 8918580 RBC 3.86 10e12/L 2016 Unknown COMPLETE BLOOD COUNT 5917270 HEMOGLOBIN 9.8 g/dL 04/17/20 17 Unknown COMPLETE BLOOD COUNT 1013802 HEMATOCRIT 31.1 % 04/17/20 17 Unknown COMPLETE BLOOD COUNT 6083840 MCV 80.6 fL 7 Unknown COMPLETE BLOOD COUNT 8886658 MCH 25.4 pg 7 Unknown COMPLETE BLOOD COUNT 6657850 MCHC 31.5 g/dL 7 Unknown COMPLETE BLOOD COUNT 9071898 PLATELET COUNT 247 10e9/L Unknown COMPLETE BLOOD COUNT 7690377 Mean Plt Volume 9.7 fL Unknown COMPLETE BLOOD COUNT 0281587 Neut Auto 74.1 % 7 Unknown COMPLETE BLOOD COUNT 8453718 Lymph Auto 12.0 % 04/17/20 17 Unknown COMPLETE BLOOD COUNT 2172722 Grand Auto 10.8 % 7 Unknown COMPLETE BLOOD COUNT 9271863 RDW 15.9 % 7 Unknown COMPLETE BLOOD COUNT 8652180 Eos Auto 2.5 % 7 Unknown COMPLETE BLOOD COUNT 1527237 Baso Auto 0.6 % 7 Unknown COMPLETE BLOOD COUNT 8278301 Neutrophil Abs 5.04 10e9/L Unknown COMPLETE BLOOD COUNT 2980957 Lymphocyte Abs 0.82 10e9/L Unknown COMPLETE BLOOD COUNT 7218876 Monocyte Abs 0.73 10e9/L 03/25 Unknown COMPLETE BLOOD COUNT 6182320 Eosinophil Abs 0.17 10e9/L Unknown COMPLETE BLOOD COUNT 9582271 RDW-SD 44.4 fL 7 Unknown COMPLETE BLOOD COUNT 5513354 Basophil Abs 0.04 10e9/L 03/25 Unknown MEAN GLUC 1732650 Calc Mean Gluc 223 mg/dL 04/17/2017 Unkn own GFR CALC 2491551 GFR Non Afr Amr >60 mL/min 04/17/2017 Un known GFR CALC 3537514 GFR Afr Amr >60 mL/min 04/17/2017 Unknow n GLYCOSYLATED HEMOGLOBIN TEST 65125 Hgb A1c 45871-7 9.4 % 0 04/17/2017 Unknown IRON 91715 Iron 37 ug/dL 04/17/2017 Unknown VITAMIN B 12 55507 VITAMIN B12 280 pg/mL 04/17/2017 Unkn own THYROID STIMULATING HORMONE 21152 TSH 2.481 uIU/mL 04/17/2017 Unknown COMPREHENSIVE METABOLIC 72477 AST 13 U/L 2016 Unknown COMPREHENSIVE METABOLIC 85770 ALT 12 U/L 2016 Unknown COMPREHENSIVE METABOLIC 92961 BUN 18 mg/dL 2016 Unknown COMPREHENSIVE METABOLIC 08703 ALBUMIN 4.7 g/dL 2016 Unknown COMPREHENSIVE METABOLIC 34743 CHLORIDE 103 mmol/L 04/17 Unknown COMPREHENSIVE METABOLIC 68602 Bili Total 0.4 mg/dL 04/17 Unknown COMPREHENSIVE METABOLIC 08439 ALK PHOS 49 U/L 2016 Unknown COMPREHENSIVE METABOLIC 86943 SODIUM 140 mmol/L 04/17 Unknown COMPREHENSIVE METABOLIC 25195 CREATININE 1.14 mg/dL 03/25 Unknown COMPREHENSIVE METABOLIC 01231 CALCIUM 9.4 mg/dL 2016 Unknown COMPREHENSIVE METABOLIC 23607 POTASSIUM 4.4 mmol/L 04/17 Unknown COMPREHENSIVE METABOLIC 77271 Total Protein 6.7 g/dL Unknown COMPREHENSIVE METABOLIC 00569 Glucose 266 mg/dL 2016 Unknown COMPREHENSIVE METABOLIC 93119 Bicarbonate 25 mmol/L 03/25 Unknown COMPREHENSIVE METABOLIC 12882 AGAP 12 mmol/L 2016 Unknown FERRITIN 44895 FERRITIN 10.0 ng/mL 04/17/2017 Unknown COMPLETE BLOOD COUNT 9120426 WBC 6.8 10e9/L 12/22/19 17 Unknown COMPLETE BLOOD COUNT 2543444 RBC 3.70 10e12/L 2016 Unknown COMPLETE BLOOD COUNT 4839566 HEMOGLOBIN 8.0 g/dL 12/22/19 17 Unknown COMPLETE BLOOD COUNT 3174076 HEMATOCRIT 26.7 % 12/22/19 17 Unknown COMPLETE BLOOD COUNT 3020529 MCV 72.2 fL 7 Unknown COMPLETE BLOOD COUNT 0502057 MCH 21.6 pg 7 Unknown COMPLETE BLOOD COUNT 4575861 MCHC 30.0 g/dL 7 Unknown COMPLETE BLOOD COUNT 5060735 PLATELET COUNT 290 10e9/L Unknown COMPLETE BLOOD COUNT 1481655 Mean Plt Volume 9.3 fL Unknown COMPLETE BLOOD COUNT 1808173 Neut Auto 80.2 % 7 Unknown COMPLETE BLOOD COUNT 2441005 Lymph Auto 9.8 % 12/22/19 17 Unknown COMPLETE BLOOD COUNT 2050836 Grand Auto 8.1 % 7 Unknown COMPLETE BLOOD COUNT 1705376 RDW 17.4 % 7 Unknown COMPLETE BLOOD COUNT 6100418 Eos Auto 1.5 % 7 Unknown COMPLETE BLOOD COUNT 1698325 Baso Auto 0.4 % 7 Unknown COMPLETE BLOOD COUNT 8087352 Neutrophil Abs 5.45 10e9/L Unknown COMPLETE BLOOD COUNT 6026408 Lymphocyte Abs 0.67 10e9/L Unknown COMPLETE BLOOD COUNT 8104064 Monocyte Abs 0.55 10e9/L 11/24 Unknown COMPLETE BLOOD COUNT 4022320 Eosinophil Abs 0.10 10e9/L Unknown COMPLETE BLOOD COUNT 5225254 RDW-SD 44.1 fL 7 Unknown COMPLETE BLOOD COUNT 7464915 Basophil Abs 0.03 10e9/L 11/24 Unknown COMPLETE BLOOD COUNT 8336124 WBC 7.6 10e9/L 12/13/19 17 Unknown COMPLETE BLOOD COUNT 0343975 RBC 3.71 10e12/L 2016 Unknown COMPLETE BLOOD COUNT 8805050 HEMOGLOBIN 8.0 g/dL 12/13/19 17 Unknown COMPLETE BLOOD COUNT 3125147 HEMATOCRIT 27.3 % 12/13/19 17 Unknown COMPLETE BLOOD COUNT 8780841 MCV 73.6 fL 7 Unknown COMPLETE BLOOD COUNT 7548838 MCH 21.6 pg 7 Unknown COMPLETE BLOOD COUNT 7547291 MCHC 29.3 g/dL 7 Unknown COMPLETE BLOOD COUNT 2017755 PLATELET COUNT 330 10e9/L Unknown COMPLETE BLOOD COUNT 2580042 Mean Plt Volume 9.7 fL Unknown COMPLETE BLOOD COUNT 9484026 Neut Auto 73.2 % 7 Unknown COMPLETE BLOOD COUNT 4282475 Lymph Auto 14.5 % 12/13/19 17 Unknown COMPLETE BLOOD COUNT 4660979 Grand Auto 10.5 % 7 Unknown COMPLETE BLOOD COUNT 9078898 RDW 17.3 % 7 Unknown COMPLETE BLOOD COUNT 8125611 Eos Auto 1.3 % 7 Unknown COMPLETE BLOOD COUNT 1012529 Baso Auto 0.5 % 7 Unknown COMPLETE BLOOD COUNT 7747465 Neutrophil Abs 5.56 10e9/L Unknown COMPLETE BLOOD COUNT 9341757 Lymphocyte Abs 1.10 10e9/L Unknown COMPLETE BLOOD COUNT 6111638 Monocyte Abs 0.80 10e9/L 11/23 Unknown COMPLETE BLOOD COUNT 1817190 Eosinophil Abs 0.10 10e9/L Unknown COMPLETE BLOOD COUNT 1767376 RDW-SD 45.2 fL 7 Unknown COMPLETE BLOOD COUNT 5540993 Basophil Abs 0.04 10e9/L 11/23 Unknown IRON 25183 Iron 69 ug/dL 03/09/2016 Unknown VITAMIN B 12 91727 VITAMIN B12 311 pg/mL 03/09/2016 Unkn own MEAN GLUC 2083635 Mean Glucose 260 mg/dL 03/07/2016 Unknow n GLYCOSYLATED HEMOGLOBIN TEST 32654 Hgb A1c 00214-5 10.7 % 0 03/07/2016 Unknown COMPREHENSIVE METABOLIC 70781 AST 14 U/L 2015 Unknown COMPREHENSIVE METABOLIC 66867 ALT 21 U/L 2015 Unknown COMPREHENSIVE METABOLIC 02863 BUN 27 mg/dL 2015 Unknown COMPREHENSIVE METABOLIC 79560 ALBUMIN 4.5 g/dL 2015 Unknown COMPREHENSIVE METABOLIC 77708 CHLORIDE 101 mmol/L 03/06 Unknown COMPREHENSIVE METABOLIC 98731 Bili Total 0.4 mg/dL 03/06 Unknown COMPREHENSIVE METABOLIC 20445 ALK PHOS 49 U/L 2015 Unknown COMPREHENSIVE METABOLIC 87802 SODIUM 136 mmol/L 03/06 Unknown COMPREHENSIVE METABOLIC 17314 CREATININE 1.16 mg/dL 02/22 Unknown COMPREHENSIVE METABOLIC 18885 CALCIUM 9.9 mg/dL 2015 Unknown COMPREHENSIVE METABOLIC 71878 POTASSIUM 4.5 mmol/L 03/06 Unknown COMPREHENSIVE METABOLIC 00014 Total Protein 6.7 g/dL Unknown COMPREHENSIVE METABOLIC 57330 Glucose 245 mg/dL 2015 Unknown COMPREHENSIVE METABOLIC 95689 Bicarbonate 24 mmol/L 02/22 Unknown COMPREHENSIVE METABOLIC 55424 AGAP 11 mmol/L 2015 Unknown THYROID STIMULATING HORMONE 63700 TSH 0.775 uIU/mL 03/06/2016 Unknown TESTOSTERONE TOTAL 05544 Testos Total 96 ng/dL 03/06/20 16 Unknown LIPID GROUP 63926 Cholesterol 146 mg/dL 03/06/2016 Unkno wn LIPID GROUP 76126 Triglyceride 249 mg/dL 03/06/2016 [facility] own LIPID GROUP 32431 HDL CHOLESTEROL 46 mg/dL 03/06/2016 [facility] [place] LIPID GROUP 49612 Chol/HDL Ratio 3.17 ratio 03/06/2016 [facility] [place] LIPID GROUP 88877 NON-HDL Chol 100 mg/dL 03/06/2016 [facility] own LIPID GROUP 20896 LDL Cholesterol 50 mg/dL 03/06/2016 [facility] [place] COMPLETE BLOOD COUNT 7157192 WBC 11.2 10e9/L 016 Unknown COMPLETE BLOOD COUNT 9499277 RBC 3.94 10e12/L 2015 Unknown COMPLETE BLOOD COUNT 4673079 HEMOGLOBIN 11.4 g/dL 03/06/20 16 Unknown COMPLETE BLOOD COUNT 4565158 HEMATOCRIT 33.7 % 03/06/20 16 Unknown COMPLETE BLOOD COUNT 3066540 MCV 85.5 fL 6 Unknown COMPLETE BLOOD COUNT 9143995 MCH 28.9 pg 6 Unknown COMPLETE BLOOD COUNT 5764600 MCHC 33.8 g/dL 6 Unknown COMPLETE BLOOD COUNT 6572600 PLATELET COUNT 204 10e9/L Unknown COMPLETE BLOOD COUNT 2406396 Mean Plt Volume 10.1 fL Unknown COMPLETE BLOOD COUNT 2303714 Neut Auto 85.9 % 6 Unknown COMPLETE BLOOD COUNT 7187958 Lymph Auto 6.8 % 03/06/20 16 Unknown COMPLETE BLOOD COUNT 2804874 Grand Auto 7.0 % 6 Unknown COMPLETE BLOOD COUNT 6204061 RDW 13.7 % 6 Unknown COMPLETE BLOOD COUNT 7924502 Eos Auto 0.1 % 6 Unknown COMPLETE BLOOD COUNT 4622656 Baso Auto 0.2 % 6 Unknown COMPLETE BLOOD COUNT 0082906 Neutrophil Abs 9.62 10e9/L Unknown COMPLETE BLOOD COUNT 3388430 Lymphoctye Abs 0.76 10e9/L Unknown COMPLETE BLOOD COUNT 2993729 Monocyte Abs 0.78 10e9/L 02/22 Unknown COMPLETE BLOOD COUNT 2295702 Eosinophil Abs 0.01 10e9/L Unknown COMPLETE BLOOD COUNT 1016161 RDW-SD 41.9 fL 6 Unknown COMPLETE BLOOD COUNT 9824202 Basophil Abs 0.02 10e9/L 02/22 Unknown FREE T4 98982 T4 Free 0.89 ng/dL 03/06/2016 Unknown GFR CALC 3009627 GFR Non Afr Amr >60 mL/min 03/06/2016 Un known GFR CALC 8659548 GFR Afr Amr >60 mL/min 03/06/2016 Unknow n PSA EQUIMOLAR JONATAN 99038 PSA Total 0.78 ng/mL 6 Unknown FREE T4 70823 FREE T4 0.90 NG/DL 07/01/2015 Unknown LIPID GROUP 81524 HDL TEST 44 MG/DL 07/01/2015 Unknown LIPID GROUP 17593 TRIG 303 MG/DL 07/01/2015 Unknown LIPID GROUP 59316 TEST LDL 56 MG/DL 07/01/2015 Unknown LIPID GROUP 48521 CHOL 161 MG/DL 07/01/2015 Unknown LIPID GROUP 49386 RCHOL/HDL 3.66 RATIO 07/01/2015 Unknow n LIPID GROUP 80686 NON-HDL CH 117 MG/DL 07/01/2015 Unknow n THYROID STIMULATING HORMONE 37174 TSH 1.783 uIU/ML 07/01/2015 Unknown COMPLETE BLOOD COUNT 6525824 WBC 6.6 10e9/L 07/01/20 15 Unknown COMPLETE BLOOD COUNT 8460767 RBC 4.18 10e12/L 2014 Unknown COMPLETE BLOOD COUNT 7296783 HGB 12.2 g/dL 5 Unknown COMPLETE BLOOD COUNT 4918200 HCT DET 37.0 % 5 Unknown COMPLETE BLOOD COUNT 3354217 MCV 88.5 fL 5 Unknown COMPLETE BLOOD COUNT 5029737 MCH 29.2 pg 5 Unknown COMPLETE BLOOD COUNT 5491111 MCHC 33.0 g/dL 5 Unknown COMPLETE BLOOD COUNT 6700072 PLT 224 10e9/L 07/01/20 15 Unknown COMPLETE BLOOD COUNT 9271329 MPV 10.4 fL 5 Unknown COMPLETE BLOOD COUNT 5835599 SUSIE % 72.6 % 5 Unknown COMPLETE BLOOD COUNT 4986427 LY % 14.1 % 5 Unknown COMPLETE BLOOD COUNT 4780248 MON % 10.2 % 5 Unknown COMPLETE BLOOD COUNT 2675810 EOS % 2.6 % 5 Unknown COMPLETE BLOOD COUNT 5344248 BASO % 0.5 % 5 Unknown COMPLETE BLOOD COUNT 1822591 RDW 14.1 % 5 Unknown COMPLETE BLOOD COUNT 9010846 ABS SUSIE 4.79 10e9/L 015 Unknown COMPLETE BLOOD COUNT 8733011 ABS LYMPH 0.93 10e9/L 015 Unknown COMPLETE BLOOD COUNT 4344525 ABS MONO 0.67 10e9/L 015 Unknown COMPLETE BLOOD COUNT 8615939 ABS EOS 0.17 10e9/L 015 Unknown COMPLETE BLOOD COUNT 0076034 ABS BASO 0.03 10e9/L 015 Unknown COMPLETE BLOOD COUNT 6387209 RDW-SD 43.9 fL 5 Unknown PSA EQUIMOLAR JONATAN 47705 PSA EQ 0.73 NG/ML 5 Unknown COMPREHENSIVE METABOLIC 97341 AST 24 U/L 2014 Unknown COMPREHENSIVE METABOLIC 92452 ALT 26 IU/L 2014 Unknown COMPREHENSIVE METABOLIC 63840 BUN 26 MG/DL 2014 Unknown COMPREHENSIVE METABOLIC 58380 ALBUMIN 4.6 GM/DL 2014 Unknown COMPREHENSIVE METABOLIC 50861 CHLORIDE 102 MMOL/L 06/01 Unknown COMPREHENSIVE METABOLIC 17072 BILI TOT 0.5 MG/DL 2014 Unknown COMPREHENSIVE METABOLIC 30589 ALK PHOS 56 U/L 2014 Unknown COMPREHENSIVE METABOLIC 77786 SODIUM 136 MMOL/L 06/01 Unknown COMPREHENSIVE METABOLIC 11223 CREATININE 1.16 MG/DL 04/2015 Unknown COMPREHENSIVE METABOLIC 55259 CALCIUM 9.8 MG/DL 2014 Unknown COMPREHENSIVE METABOLIC 40503 POTASSIUM 4.6 MMOL/L 06/01 Unknown COMPREHENSIVE METABOLIC 58112 PROT TOT 7.4 GM/DL 2014 Unknown COMPREHENSIVE METABOLIC 29673 Glucose 223 MG/DL 2014 Unknown COMPREHENSIVE METABOLIC 97660 BICARB 27 MMOL/L 2014 Unknown COMPREHENSIVE METABOLIC 35051 ANION GAP 7 MEQ/L 2014 Unknown GFR CALC 3223983 GFR AA >60 ML/MIN 06/01/2015 Unknown GFR CALC 3506082 GFR NON-AA >60 ML/MIN 06/01/2015 Unknown GLYCOSYLATED HEMOGLOBIN TEST 93176 A1C HPLC 59471-7 8.9 % 0 06/01/2015 Unknown GFR CALC 2927694 GFR AA >60 ML/MIN 02/25/2015 Unknown GFR CALC 8541137 GFR NON-AA >60 ML/MIN 02/25/2015 Unknown COMPREHENSIVE METABOLIC 64628 AST 24 U/L 2014 Unknown COMPREHENSIVE METABOLIC 52003 ALT 25 IU/L 2014 Unknown COMPREHENSIVE METABOLIC 89121 BUN 14 MG/DL 2014 Unknown COMPREHENSIVE METABOLIC 17361 ALBUMIN 4.5 GM/DL 2014 Unknown COMPREHENSIVE METABOLIC 97446 CHLORIDE 99 MMOL/L 2014 Unknown COMPREHENSIVE METABOLIC 54542 BILI TOT 0.5 MG/DL 2014 Unknown COMPREHENSIVE METABOLIC 73231 ALK PHOS 48 U/L 2014 Unknown COMPREHENSIVE METABOLIC 05723 SODIUM 136 MMOL/L 02/25 Unknown COMPREHENSIVE METABOLIC 60083 CREATININE 0.97 MG/DL 12/2014 Unknown COMPREHENSIVE METABOLIC 27450 CALCIUM 9.9 MG/DL 2014 Unknown COMPREHENSIVE METABOLIC 38772 POTASSIUM 4.4 MMOL/L 02/25 Unknown COMPREHENSIVE METABOLIC 40405 PROT TOT 7.1 GM/DL 2014 Unknown COMPREHENSIVE METABOLIC 19101 Glucose 171 MG/DL 2014 Unknown COMPREHENSIVE METABOLIC 67321 BICARB 25 MMOL/L 2014 Unknown COMPREHENSIVE METABOLIC 11126 ANION GAP 12 MEQ/L 2014 Unknown PROTEIN/CREAT URINE WITH RATIO 38969|98695 PROT R U 19 MG/D L 08/27/2014 Unknown PROTEIN/CREAT URINE WITH RATIO 03556|23408 CREAT R U 111 MG/ DL 08/27/2014 Unknown PROTEIN/CREAT URINE WITH RATIO 67090|91411 XRATIO P/C 171 MG /G 08/27/2014 Unknown MICROALBUMIN URINE RANDOM 24437 MICRL MG/L 34.7 MG/L 12/2013 Unknown MICROALBUMIN URINE RANDOM 70060 XM.ALB/CRE 32.7 MG/GCR 1 10/28/2013 Unknown MICROALBUMIN URINE RANDOM 27013 CREAT MG/D 106 MG/DL 12/2013 Unknown MICROALBUMIN URINE RANDOM 88015 CRE/100 1.06 G/L 12/2013 Unknown COMPLETE BLOOD COUNT 5190144 WBC 7.1 10e9/L 08/05/20 14 Unknown COMPLETE BLOOD COUNT 6504350 RBC 4.35 10e12/L 2013 Unknown COMPLETE BLOOD COUNT 2454598 HGB 12.9 g/dL 4 Unknown COMPLETE BLOOD COUNT 1454450 HCT DET 39.4 % 4 Unknown COMPLETE BLOOD COUNT [id number] MCV 90.6 fL 4 Unknown COMPLETE BLOOD COUNT [id number] MCH 29.7 pg 4 Unknown COMPLETE BLOOD COUNT 8355952 MCHC 32.7 g/dL 4 Unknown COMPLETE BLOOD COUNT 5886150 PLT 240 10e9/L 08/05/20 14 Unknown COMPLETE BLOOD COUNT [id number] MPV 10.3 fL 4 Unknown COMPLETE BLOOD COUNT [id number] SUSIE % 70.0 % 4 Unknown COMPLETE BLOOD COUNT [id number] LY % 16.4 % 4 Unknown COMPLETE BLOOD COUNT [id number] MON % 9.2 % 4 Unknown COMPLETE BLOOD COUNT [id number] EOS % 3.8 % 4 Unknown COMPLETE BLOOD COUNT [id number] BASO % 0.6 % 4 Unknown COMPLETE BLOOD COUNT [id number] RDW 13.4 % 4 Unknown COMPLETE BLOOD COUNT [id number] ABS SUSIE 4.97 10e9/L 014 Unknown COMPLETE BLOOD COUNT [id number] ABS LYMPH 1.16 10e9/L 014 Unknown COMPLETE BLOOD COUNT [id number] ABS MONO 0.65 10e9/L 014 Unknown COMPLETE BLOOD COUNT [id number] ABS EOS 0.27 10e9/L 014 Unknown COMPLETE BLOOD COUNT [id number] ABS BASO 0.04 10e9/L 014 Unknown COMPLETE BLOOD COUNT [id number] RDW-SD 43.3 fL 4 Unknown FREE T4 04295 FREE T4 1.02 NG/DL 08/05/2014 Unknown GFR CALC 1412000 GFR AA >60 ML/MIN 08/05/2014 Unknown GFR CALC 8933835 GFR NON-AA >60 ML/MIN 08/05/2014 Unknown GLYCOSYLATED HEMOGLOBIN TEST 69721 A1C HPLC 95172-3 7.7 % 1 10/05/2013 Unknown COMPREHENSIVE METABOLIC 11366 AST 19 U/L 2013 Unknown COMPREHENSIVE METABOLIC 93926 ALT 21 IU/L 2013 Unknown COMPREHENSIVE METABOLIC 78507 BUN 25 MG/DL 2013 Unknown COMPREHENSIVE METABOLIC 62658 ALBUMIN 4.6 GM/DL 2013 Unknown COMPREHENSIVE METABOLIC 31612 CHLORIDE 103 MMOL/L 08/05 Unknown COMPREHENSIVE METABOLIC 55067 BILI TOT 0.4 MG/DL 2013 Unknown COMPREHENSIVE METABOLIC 34072 ALK PHOS 45 U/L 2013 Unknown COMPREHENSIVE METABOLIC 86645 SODIUM 138 MMOL/L 08/05 Unknown COMPREHENSIVE METABOLIC 93803 CREATININE 1.01 MG/DL 07/25 Unknown COMPREHENSIVE METABOLIC 17147 CALCIUM 9.8 MG/DL 2013 Unknown COMPREHENSIVE METABOLIC 23410 POTASSIUM 4.7 MMOL/L 08/05 Unknown COMPREHENSIVE METABOLIC 88886 PROT TOT 7.0 GM/DL 2013 Unknown COMPREHENSIVE METABOLIC 36744 Glucose 145 MG/DL 2013 Unknown COMPREHENSIVE METABOLIC 28164 BICARB 27 MMOL/L 2013 Unknown COMPREHENSIVE METABOLIC 41006 ANION GAP 8 MEQ/L 2013 Unknown THYROID STIMULATING HORMONE 19298 TSH 1.922 uIU/ML 08/05/2014 Unknown LIPID GROUP 15948 HDL TEST 47 MG/DL 08/05/2014 Unknown LIPID GROUP 79821 TRIG 224 MG/DL 08/05/2014 Unknown LIPID GROUP 27004 TEST LDL 125 MG/DL 08/05/2014 Unknown LIPID GROUP 53163 CHOL 217 MG/DL 08/05/2014 Unknown LIPID GROUP 80590 RCHOL/HDL 4.62 RATIO 08/05/2014 Unknow n LIPID GROUP 29517 NON-HDL CH 170 MG/DL 08/05/2014 Unknow n MYCOPLASMA ANTIBODY, IFA [id number] MYCO G IFA 1:256 03/24 Unknown MYCOPLASMA ANTIBODY, IFA [id number] MYCO M IFA <1:10 03/24 Unknown MYCOPLASMA ANTIBODY, IFA [id number] MYCO INTER SEE BELO 03/24 Unknown COMPLETE BLOOD COUNT [id number] WBC 8.3 10e9/L 04/09/20 13 Unknown COMPLETE BLOOD COUNT [id number] RBC 4.61 10e12/L 2012 Unknown COMPLETE BLOOD COUNT [id number] HGB 13.9 g/dL 3 Unknown COMPLETE BLOOD COUNT [id number] HCT DET 41.2 % 3 Unknown COMPLETE BLOOD COUNT [id number] MCV 89.4 fL 3 Unknown COMPLETE BLOOD COUNT [id number] MCH 30.2 pg 3 Unknown COMPLETE BLOOD COUNT [id number] MCHC 33.7 g/dL 3 Unknown COMPLETE BLOOD COUNT [id number] PLT 249 10e9/L 04/09/20 13 Unknown COMPLETE BLOOD COUNT [id number] MPV 9.8 fL 3 Unknown COMPLETE BLOOD COUNT [id number] SUSIE % 65.9 % 3 Unknown COMPLETE BLOOD COUNT [id number] LY % 19.8 % 3 Unknown COMPLETE BLOOD COUNT [id number] MON % 10.8 % 3 Unknown COMPLETE BLOOD COUNT [id number] EOS % 3.0 % 3 Unknown COMPLETE BLOOD COUNT [id number] BASO % 0.5 % 3 Unknown COMPLETE BLOOD COUNT 8246190 RDW 14.0 % 3 Unknown COMPLETE BLOOD COUNT [id number] ABS SUSIE 5.47 10e9/L 013 Unknown COMPLETE BLOOD COUNT [id number] ABS LYMPH 1.64 10e9/L 013 Unknown COMPLETE BLOOD COUNT [id number] ABS MONO 0.90 10e9/L 013 Unknown COMPLETE BLOOD COUNT [id number] ABS EOS 0.25 10e9/L 013 Unknown COMPLETE BLOOD COUNT [id number] ABS BASO 0.04 10e9/L 013 Unknown COMPLETE BLOOD COUNT [id number] RDW-SD 45.0 fL 3 Unknown URIC ACID 70816 URIC ACID 5.3 MG/DL 02/12/2013 Unknown FREE T4 92144 FREE T4 1.09 NG/DL 02/11/2013 Unknown COMPLETE BLOOD COUNT [id number] WBC 6.3 10e9/L 02/12/20 13 Unknown COMPLETE BLOOD COUNT [id number] RBC 4.29 10e12/L 2012 Unknown COMPLETE BLOOD COUNT [id number] HGB 13.1 g/dL 3 Unknown COMPLETE BLOOD COUNT [id number] HCT DET 39.7 % 3 Unknown COMPLETE BLOOD COUNT [id number] MCV 92.5 fL 3 Unknown COMPLETE BLOOD COUNT [id number] MCH 30.5 pg 3 Unknown COMPLETE BLOOD COUNT [id number] MCHC 33.0 g/dL 3 Unknown COMPLETE BLOOD COUNT [id number] PLT 247 10e9/L 02/12/20 13 Unknown COMPLETE BLOOD COUNT [id number] MPV 10.0 fL 3 Unknown COMPLETE BLOOD COUNT [id number] SUSIE % 73.4 % 3 Unknown COMPLETE BLOOD COUNT [id number] LY % 13.5 % 3 Unknown COMPLETE BLOOD COUNT [id number] MON % 9.4 % 3 Unknown COMPLETE BLOOD COUNT [id number] EOS % 2.9 % 3 Unknown COMPLETE BLOOD COUNT [id number] BASO % 0.8 % 3 Unknown COMPLETE BLOOD COUNT 0522873 RDW 13.8 % 3 Unknown COMPLETE BLOOD COUNT [id number] ABS SUSIE 4.62 10e9/L 013 Unknown COMPLETE BLOOD COUNT [id number] ABS LYMPH 0.85 10e9/L 013 Unknown COMPLETE BLOOD COUNT [id number] ABS MONO 0.59 10e9/L 013 Unknown COMPLETE BLOOD COUNT [id number] ABS EOS 0.18 10e9/L 013 Unknown COMPLETE BLOOD COUNT [id number] ABS BASO 0.05 10e9/L 013 Unknown COMPLETE BLOOD COUNT [id number] RDW-SD 45.7 fL 3 Unknown HEMOGLOBIN A1C (GLYCOSYLATED) 9519020 A1C HPLC 37406-6 7.5 % 02/11/2013 Unknown THYROID STIMULATING HORMONE 60708 TSH 1.466 uIU/ML 02/11/2013 Unknown VITAMIN B 12 FOLIC ACID 94627|64835 VIT B 12 625 PG/ML 01/23 Unknown VITAMIN B 12 FOLIC ACID 08967|12332 FOLIC ACID 15.6 NG/ML Unknown COMPREHENSIVE METABOLIC 42649 AST 18 U/L 2012 Unknown COMPREHENSIVE METABOLIC 34492 ALT 21 IU/L 2012 Unknown COMPREHENSIVE METABOLIC 68541 BUN 25 MG/DL 2012 Unknown COMPREHENSIVE METABOLIC 40844 ALBUMIN 4.6 GM/DL 2012 Unknown COMPREHENSIVE METABOLIC 27055 CHLORIDE 103 MMOL/L 02/11 Unknown COMPREHENSIVE METABOLIC 82033 BILI TOT 0.3 MG/DL 2012 Unknown COMPREHENSIVE METABOLIC 88559 ALK PHOS 53 U/L 2012 Unknown COMPREHENSIVE METABOLIC 60458 SODIUM 136 MMOL/L 02/11 Unknown COMPREHENSIVE METABOLIC 00115 CREATININE 1.16 MG/DL 01/23 Unknown COMPREHENSIVE METABOLIC 75401 CALCIUM 10.0 MG/DL 02/11 Unknown COMPREHENSIVE METABOLIC 37226 POTASSIUM 4.9 MMOL/L 02/11 Unknown COMPREHENSIVE METABOLIC 59512 PROT TOT 7.0 GM/DL 2012 Unknown COMPREHENSIVE METABOLIC 12778 Glucose 192 MG/DL 2012 Unknown COMPREHENSIVE METABOLIC 15043 BICARB 26 MMOL/L 2012 Unknown COMPREHENSIVE METABOLIC 89569 ANION GAP 7 MEQ/L 2012 Unknown GFR CALC 4264283 GFR AA >60 ML/MIN 02/11/2013 Unknown GFR CALC 5854742 GFR NON-AA >60 ML/MIN 02/11/2013 Unknown C-REACTIVE PROTEIN (CRP) QUANT 27243 CRP 2.7 MG/DL 02/11/2013 Unknown GFR CALC 9100595 GFR AA >60 ML/MIN 09/19/2012 Unknown GFR CALC 5550346 GFR NON-AA >60 ML/MIN 09/19/2012 Unknown HEMOGLOBIN A1C (GLYCOSYLATED) 8072814 A1C HPLC 66139-3 7.2 % 09/19/2012 Unknown COMPREHENSIVE METABOLIC 30888 AST 13 U/L 2011 Unknown COMPREHENSIVE METABOLIC 54900 ALT 17 IU/L 2011 Unknown COMPREHENSIVE METABOLIC 43220 BUN 25 MG/DL 2011 Unknown COMPREHENSIVE METABOLIC 53961 ALBUMIN 4.5 GM/DL 2011 Unknown COMPREHENSIVE METABOLIC 92473 CHLORIDE 104 MMOL/L 09/19 Unknown COMPREHENSIVE METABOLIC 06257 BILI TOT 0.3 MG/DL 2011 Unknown COMPREHENSIVE METABOLIC 60184 ALK PHOS 43 U/L 2011 Unknown COMPREHENSIVE METABOLIC 84614 SODIUM 139 MMOL/L 09/19 Unknown COMPREHENSIVE METABOLIC 11384 CREATININE 1.10 MG/DL 08/25 Unknown COMPREHENSIVE METABOLIC 95771 CALCIUM 9.8 MG/DL 2011 Unknown COMPREHENSIVE METABOLIC 92481 POTASSIUM 4.8 MMOL/L 09/19 Unknown COMPREHENSIVE METABOLIC 27622 PROT TOT 6.5 GM/DL 2011 Unknown COMPREHENSIVE METABOLIC 00111 Glucose 148 MG/DL 2011 Unknown COMPREHENSIVE METABOLIC 74534 BICARB 25 MMOL/L 2011 Unknown COMPREHENSIVE METABOLIC 40812 ANION GAP 10 MEQ/L 2011 Unknown LIPID GROUP 46587 HDL TEST 44 MG/DL 09/19/2012 Unknown LIPID GROUP 22048 TRIG 318 MG/DL 09/19/2012 Unknown LIPID GROUP 08847 TEST LDL 100 MG/DL 09/19/2012 Unknown LIPID GROUP 38107 CHOL 208 MG/DL 09/19/2012 Unknown LIPID GROUP 05038 RCHOL/HDL 4.73 RATIO 09/19/2012 Unknow n FREE T4 27129 FREE T4 0.87 NG/DL 05/06/2012 Unknown GLYCOSYLATED HEMOGLOBIN TEST 83264 A1C HPLC 94443-5 6.4 % 0 05/06/2012 Unknown LIPID GROUP 21766 HDL TEST 44 MG/DL 05/06/2012 Unknown LIPID GROUP 90268 TRIG 177 MG/DL 05/06/2012 Unknown LIPID GROUP 57355 TEST LDL 113 MG/DL 05/06/2012 Unknown LIPID GROUP 05174 CHOL 192 MG/DL 05/06/2012 Unknown LIPID GROUP 02508 RCHOL/HDL 4.36 RATIO 05/06/2012 Unknow n THYROID STIMULATING HORMONE 87613 TSH 1.151 uIU/ML 05/06/2012 Unknown COMPLETE BLOOD COUNT 14099 WBC 7.8 10e9/L 05/06/20 12 Unknown COMPLETE BLOOD COUNT 10584 RBC 4.31 10e12/L 2011 Unknown COMPLETE BLOOD COUNT 55025 HGB 12.8 g/dL 2 Unknown COMPLETE BLOOD COUNT 65216 HCT DET 39.1 % 2 Unknown COMPLETE BLOOD COUNT 86008 MCV 90.7 fL 2 Unknown COMPLETE BLOOD COUNT 91158 MCH 29.7 pg 2 Unknown COMPLETE BLOOD COUNT 06293 MCHC 32.7 g/dL 2 Unknown COMPLETE BLOOD COUNT 94597 PLT 207 10e9/L 05/06/20 12 Unknown COMPLETE BLOOD COUNT 61304 MPV 10.2 fL 2 Unknown COMPLETE BLOOD COUNT 52635 SUSIE % 74.2 % 2 Unknown COMPLETE BLOOD COUNT 35165 LY % 12.8 % 2 Unknown COMPLETE BLOOD COUNT 06662 MON % 11.0 % 2 Unknown COMPLETE BLOOD COUNT 42950 EOS % 1.7 % 2 Unknown COMPLETE BLOOD COUNT 52767 BASO % 0.3 % 2 Unknown COMPLETE BLOOD COUNT 32608 RDW 13.7 % 2 Unknown COMPLETE BLOOD COUNT 86038 ABS SUSIE 5.79 10e9/L 012 Unknown COMPLETE BLOOD COUNT 49724 ABS LYMPH 1.00 10e9/L 012 Unknown COMPLETE BLOOD COUNT 96746 ABS MONO 0.86 10e9/L 012 Unknown COMPLETE BLOOD COUNT 63923 ABS EOS 0.13 10e9/L 012 Unknown COMPLETE BLOOD COUNT 16725 ABS BASO 0.02 10e9/L 012 Unknown COMPLETE BLOOD COUNT 50592 RDW-SD 44.4 fL 2 Unknown COMPREHENSIVE METABOLIC 41903 AST 13 U/L 2011 Unknown COMPREHENSIVE METABOLIC 08494 ALT 14 IU/L 2011 Unknown COMPREHENSIVE METABOLIC 98067 BUN 17 MG/DL 2011 Unknown COMPREHENSIVE METABOLIC 38751 ALBUMIN 4.5 GM/DL 2011 Unknown COMPREHENSIVE METABOLIC 73191 CHLORIDE 101 MMOL/L 05/06 Unknown COMPREHENSIVE METABOLIC 12451 BILI TOT 0.5 MG/DL 2011 Unknown COMPREHENSIVE METABOLIC 53881 ALK PHOS 42 U/L 2011 Unknown COMPREHENSIVE METABOLIC 34179 SODIUM 141 MMOL/L 05/06 Unknown COMPREHENSIVE METABOLIC 77232 CREATININE 1.02 MG/DL 04/24 Unknown COMPREHENSIVE METABOLIC 84488 CALCIUM 9.7 MG/DL 2011 Unknown COMPREHENSIVE METABOLIC 76817 POTASSIUM 4.6 MMOL/L 05/06 Unknown COMPREHENSIVE METABOLIC 35813 PROT TOT 6.5 GM/DL 2011 Unknown COMPREHENSIVE METABOLIC 89532 Glucose 139 MG/DL 2011 Unknown COMPREHENSIVE METABOLIC 81267 BICARB 29 MMOL/L 2011 Unknown COMPREHENSIVE METABOLIC 87986 ANION GAP 11 MEQ/L 2011 Unknown GFR CALC 2648206 GFR AA >60 ML/MIN 05/06/2012 Unknown GFR CALC 5170040 GFR NON-AA 54.0L ML/MIN 05/06/2012 Unkno wn GLYCOSYLATED HEMOGLOBIN TEST 32589 A1C HPLC 80136-7 6.6 % 1 09/30/2010 Unknown FREE T4 33059 FREE T4 1.00 NG/DL 07/26/2011 Unknown LIPID GROUP 72821 HDL TEST 40 MG/DL 07/26/2011 Unknown LIPID GROUP 07785 TRIG 136 MG/DL 07/26/2011 Unknown LIPID GROUP 45446 TEST LDL 126 MG/DL 07/26/2011 Unknown LIPID GROUP 47013 CHOL 193 MG/DL 07/26/2011 Unknown LIPID GROUP 32128 RCHOL/HDL 4.83 RATIO 07/26/2011 Unknow n COMPREHENSIVE METABOLIC 15883 AST 15 U/L 2010 Unknown COMPREHENSIVE METABOLIC 31219 ALT 13 IU/L 2010 Unknown COMPREHENSIVE METABOLIC 46005 BUN 17 MG/DL 2010 Unknown COMPREHENSIVE METABOLIC 41195 ALBUMIN 4.4 GM/DL 2010 Unknown COMPREHENSIVE METABOLIC 94047 CHLORIDE 102 MMOL/L 07/26 Unknown COMPREHENSIVE METABOLIC 35864 BILI TOT 0.5 MG/DL 2010 Unknown COMPREHENSIVE METABOLIC 61831 ALK PHOS 54 U/L 2010 Unknown COMPREHENSIVE METABOLIC 74663 SODIUM 138 MMOL/L 07/26 Unknown COMPREHENSIVE METABOLIC 41087 CREATININE 0.95 MG/DL 10/2010 Unknown COMPREHENSIVE METABOLIC 48289 CALCIUM 9.3 MG/DL 2010 Unknown COMPREHENSIVE METABOLIC 60939 POTASSIUM 4.3 MMOL/L 07/26 Unknown COMPREHENSIVE METABOLIC 21936 PROT TOT 6.7 GM/DL 2010 Unknown COMPREHENSIVE METABOLIC 52596 Glucose 116 MG/DL 2010 Unknown COMPREHENSIVE METABOLIC 83320 BICARB 28 MMOL/L 2010 Unknown COMPREHENSIVE METABOLIC 93807 ANION GAP 8 MEQ/L 2010 Unknown PSA EQUIMOLAR JONATAN 47451 PSA EQ 1.01 NG/ML 1 Unknown COMPLETE BLOOD COUNT 33133 WBC 6.4 10e9/L 07/26/20 11 Unknown COMPLETE BLOOD COUNT 47723 RBC 4.43 10e12/L 2010 Unknown COMPLETE BLOOD COUNT 25070 HGB 13.2 g/dL 1 Unknown COMPLETE BLOOD COUNT 05963 HCT DET 39.3 % 1 Unknown COMPLETE BLOOD COUNT 87349 MCV 88.7 fL 1 Unknown COMPLETE BLOOD COUNT 88857 MCH 29.8 pg 1 Unknown COMPLETE BLOOD COUNT 17475 MCHC 33.6 g/dL 1 Unknown COMPLETE BLOOD COUNT 64800 PLT 226 10e9/L 07/26/20 11 Unknown COMPLETE BLOOD COUNT 67549 MPV 9.9 fL 1 Unknown COMPLETE BLOOD COUNT 30185 SUSIE % 65.4 % 1 Unknown COMPLETE BLOOD COUNT 47234 LY % 19.7 % 1 Unknown COMPLETE BLOOD COUNT 44002 MON % 10.8 % 1 Unknown COMPLETE BLOOD COUNT 29624 EOS % 3.6 % 1 Unknown COMPLETE BLOOD COUNT 38946 BASO % 0.5 % 1 Unknown COMPLETE BLOOD COUNT 10096 RDW 13.2 % 1 Unknown COMPLETE BLOOD COUNT 03674 ABS SUSIE 4.19 10e9/L 011 Unknown COMPLETE BLOOD COUNT 74043 ABS LYMPH 1.26 10e9/L 011 Unknown COMPLETE BLOOD COUNT 41891 ABS MONO 0.69 10e9/L 011 Unknown COMPLETE BLOOD COUNT 88044 ABS EOS 0.23 10e9/L 011 Unknown COMPLETE BLOOD COUNT 77690 ABS BASO 0.03 10e9/L 011 Unknown COMPLETE BLOOD COUNT 99423 RDW-SD 41.7 fL 1 Unknown THYROID STIMULATING HORMONE 47540 TSH 1.345 uIU/ML 07/26/2011 Unknown GFR CALC 2921948 GFR AA >60 ML/MIN 07/26/2011 Unknown GFR CALC 5411896 GFR NON-AA >60 ML/MIN 07/26/2011 Unknown BRAIN NATRIURETIC PEPTIDE(BNP) 51797 BRAIN PEP 23 pg/mL 01/19/2011 Unknown CANCEL 8890729 CANCEL FOOTNOTE 01/18/2011 Unknown TESTOSTERONE TOTAL 97591 TESTOS TO 138 NG/DL 12/19/2010 Unknown COMPLETE BLOOD COUNT 03101 WBC 8.4 10e9/L 12/08/19 11 Unknown COMPLETE BLOOD COUNT 50342 RBC 4.40 10e12/L 2010 Unknown COMPLETE BLOOD COUNT 28820 HGB 13.3 g/dL 1 Unknown COMPLETE BLOOD COUNT 85485 HCT DET 39.8 % 1 Unknown COMPLETE BLOOD COUNT 88731 MCV 90.5 fL 1 Unknown COMPLETE BLOOD COUNT 02977 MCH 30.2 pg 1 Unknown COMPLETE BLOOD COUNT 58645 MCHC 33.4 g/dL 1 Unknown COMPLETE BLOOD COUNT 98971 PLT 201 10e9/L 12/08/19 11 Unknown COMPLETE BLOOD COUNT 64595 MPV 10.6 fL 1 Unknown COMPLETE BLOOD COUNT 83697 SUSIE % 72.5 % 1 Unknown COMPLETE BLOOD COUNT 97931 LY % 14.8 % 1 Unknown COMPLETE BLOOD COUNT 86609 MON % 10.6 % 1 Unknown COMPLETE BLOOD COUNT 76656 EOS % 1.7 % 1 Unknown COMPLETE BLOOD COUNT 23984 BASO % 0.4 % 1 Unknown COMPLETE BLOOD COUNT 69902 RDW 13.7 % 1 Unknown COMPLETE BLOOD COUNT 01285 ABS SUSIE 6.09 10e9/L 011 Unknown COMPLETE BLOOD COUNT 50820 ABS LYMPH 1.24 10e9/L 011 Unknown COMPLETE BLOOD COUNT 81599 ABS MONO 0.89 10e9/L 011 Unknown COMPLETE BLOOD COUNT 41192 ABS EOS 0.14 10e9/L 011 Unknown COMPLETE BLOOD COUNT 61683 ABS BASO 0.03 10e9/L 011 Unknown COMPLETE BLOOD COUNT 91674 RDW-SD 44.0 fL 1 Unknown LIPID GROUP 70292 HDL TEST 40 MG/DL 12/07/2010 Unknown LIPID GROUP 16755 TRIG 383 MG/DL 12/07/2010 Unknown LIPID GROUP 24483 TEST LDL 82 MG/DL 12/07/2010 Unknown LIPID GROUP 61831 CHOL 199 MG/DL 12/07/2010 Unknown LIPID GROUP 50501 RCHOL/HDL 4.98 RATIO 12/07/2010 Unknow n GFR CALC 6621512 GFR AA >60 ML/MIN 12/07/2010 Unknown GFR CALC 4794841 GFR NON-AA >60 ML/MIN 12/07/2010 Unknown COMPREHENSIVE METABOLIC 01614 AST 29 U/L 2010 Unknown COMPREHENSIVE METABOLIC 41076 ALT 39 IU/L 2010 Unknown COMPREHENSIVE METABOLIC 17834 BUN 17 MG/DL 2010 Unknown COMPREHENSIVE METABOLIC 06413 ALBUMIN 4.9 GM/DL 2010 Unknown COMPREHENSIVE METABOLIC 31042 CHLORIDE 100 MMOL/L 12/07 Unknown COMPREHENSIVE METABOLIC 51150 BILI TOT 0.3 MG/DL 2010 Unknown COMPREHENSIVE METABOLIC 93696 ALK PHOS 53 U/L 2010 Unknown COMPREHENSIVE METABOLIC 51995 SODIUM 137 MMOL/L 12/07 Unknown COMPREHENSIVE METABOLIC 05565 CREATININE 0.98 MG/DL 11/22 Unknown COMPREHENSIVE METABOLIC 73486 CALCIUM 9.5 MG/DL 2010 Unknown COMPREHENSIVE METABOLIC 18738 POTASSIUM 4.3 MMOL/L 12/07 Unknown COMPREHENSIVE METABOLIC 06836 PROT TOT 6.6 GM/DL 2010 Unknown COMPREHENSIVE METABOLIC 24447 Glucose 176 MG/DL 2010 Unknown COMPREHENSIVE METABOLIC 86070 BICARB 28 MMOL/L 2010 Unknown COMPREHENSIVE METABOLIC 43518 ANION GAP 9 MEQ/L 2010 Unknown PSA EQUIMOLAR JONATAN 92303 PSA EQ 0.65 NG/ML 1 Unknown HEMOGLOBIN A1C (GLYCOSYLATED) 12425 A1C HPLC 30825-6 6.9 % 12/07/2010 Unknown Procedures Procedure Codes Date THER/PROPH/DIAG INJ SC/IM CPT-4: 54012 12/25/2019 METHYLPREDNISOLONE INJECTION CPT-4: J2930 12/25/2019 FLU VACC PRSV FREE INC ANTIG 65 AND OLDER CPT-4: 30853 08/07/2019 FLU VACC PRSV FREE INC ANTIG 65 AND OLDER CPT-4: 01677 08/07/2019 ADMIN INFLUENZA VIRUS VAC CPT-4: G0008 08/07/2019 THER/PROPH/DIAG INJ SC/IM CPT-4: 65467 07/14/2019 METHYLPREDNISOLONE INJECTION CPT-4: J2930 07/14/2019 ROUTINE VENIPUNCTURE CPT-4: 05688 06/17/2019 ASSAY THYROID STIM HORMONE CPT-4: 61274 06/17/2019 COMPREHEN METABOLIC PANEL CPT-4: 03705 06/17/2019 COMPLETE CBC W/AUTO DIFF WBC CPT-4: 94783 06/17/2019 ASSAY OF IRON CPT-4: 38743 06/17/2019 VITAMIN B-12 CPT-4: 06960 06/17/2019 RBC SED RATE AUTOMATED CPT-4: 04423 06/17/2019 THER/PROPH/DIAG INJ SC/IM CPT-4: 90312 06/10/2019 THER/PROPH/DIAG INJ SC/IM CPT-4: 51609 06/02/2019 THER/PROPH/DIAG INJ SC/IM CPT-4: 36640 05/27/2019 THER/PROPH/DIAG INJ SC/IM CPT-4: 20204 05/12/2019 ROUTINE VENIPUNCTURE CPT-4: 02237 05/08/2019 COMPREHEN METABOLIC PANEL CPT-4: 47658 05/08/2019 COMPLETE CBC W/AUTO DIFF WBC CPT-4: 86304 05/08/2019 A1C HPLC CPT-4: 04498 05/08/2019 VITAMIN D TOTAL (25 HYDROXY) CPT-4: 24545 05/08/2019 ASSAY OF IRON CPT-4: 80079 05/08/2019 ASSAY OF FERRITIN CPT-4: 67776 05/08/2019 VITAMIN B-12 CPT-4: 80010 05/08/2019 THER/PROPH/DIAG INJ SC/IM CPT-4: 22648 03/21/2019 METHYLPREDNISOLONE INJECTION CPT-4: J2930 03/21/2019 THER/PROPH/DIAG INJ SC/IM CPT-4: 67551 03/13/2019 METHYLPREDNISOLONE INJECTION CPT-4: J2930 03/13/2019 THER/PROPH/DIAG INJ SC/IM CPT-4: 73297 12/25/2018 METHYLPREDNISOLONE INJECTION CPT-4: J2930 12/25/2018 ROUTINE VENIPUNCTURE CPT-4: 81329 12/09/2018 ASSAY OF FREE THYROXINE CPT-4: 44382 12/09/2018 ASSAY THYROID STIM HORMONE CPT-4: 28412 12/09/2018 COMPREHEN METABOLIC PANEL CPT-4: 55769 12/09/2018 COMPLETE CBC W/AUTO DIFF WBC CPT-4: 74669 12/09/2018 LIPID PANEL CPT-4: 48086 12/09/2018 A1C HPLC CPT-4: 56820 12/09/2018 PRESCRIP TRANSMIT VIA ERX SY CPT-4: G8553 08/21/2018 PRESCRIP TRANSMIT VIA ERX SY CPT-4: G8553 08/07/2018 THER/PROPH/DIAG INJ SC/IM CPT-4: 25306 05/23/2018 METHYLPREDNISOLONE INJECTION CPT-4: J2930 05/23/2018 PRESCRIP TRANSMIT VIA ERX SY CPT-4: G8553 05/02/2018 THER/PROPH/DIAG INJ SC/IM CPT-4: 79971 04/29/2018 METHYLPREDNISOLONE INJECTION CPT-4: J2930 04/29/2018 DEXAMETHASONE SODIUM PHOS CPT-4: J1100 04/22/2018 THER/PROPH/DIAG INJ SC/IM CPT-4: 51043 04/22/2018 TRIAMCINOLONE ACET INJ NOS CPT-4: J3301 04/22/2018 PRESCRIP TRANSMIT VIA ERX SY CPT-4: G8553 04/22/2018 PRESCRIP TRANSMIT VIA ERX SY CPT-4: G8553 01/23/2018 URINALYSIS NONAUTO W/O SCOPE CPT-4: 01085 01/02/2018 URINE CULTURE/ COLONY COUNT CPT-4: 56643 01/02/2018 PRESCRIP TRANSMIT VIA ERX SY CPT-4: G8553 01/02/2018 PRESCRIP TRANSMIT VIA ERX SY CPT-4: G8553 12/28/2017 PRESCRIP TRANSMIT VIA ERX SY CPT-4: G8553 12/21/2017 CEFTRIAXONE SODIUM INJECTION CPT-4: J0696 12/17/2017 THER/PROPH/DIAG INJ SC/IM CPT-4: 83769 12/17/2017 THER/PROPH/DIAG INJ SC/IM CPT-4: 26648 12/17/2017 TRIAMCINOLONE ACET INJ NOS CPT-4: J3301 12/17/2017 PRESCRIP TRANSMIT VIA ERX SY CPT-4: G8553 12/17/2017 DRAIN/INJECT JOINT/BURSA CPT-4: 34918 12/11/2017 TRIAMCINOLONE ACET INJ NOS CPT-4: J3301 12/11/2017 DEXAMETHASONE SODIUM PHOS CPT-4: J1100 12/11/2017 DESTRUCT PREMALG LESION (Cryosurgery) CPT-4: 53266 PRESCRIP TRANSMIT VIA ERX SY CPT-4: G8553 10/17/2017 DEXAMETHASONE SODIUM PHOS CPT-4: J1100 08/02/2017 THER/PROPH/DIAG INJ SC/IM CPT-4: 12639 08/02/2017 TRIAMCINOLONE ACET INJ NOS CPT-4: J3301 08/02/2017 PRESCRIP TRANSMIT VIA ERX SY CPT-4: G8553 08/02/2017 PNEUMOCOCCAL VACC 23 OLIVIA IM CPT-4: 84162 07/24/2017 ADMIN PNEUMOCOCCAL VACCINE CPT-4: G0009 07/24/2017 ALBUTEROL NON-COMP UNIT CPT-4: J7613 07/02/2017 AIRWAY INHALATION TREATMENT CPT-4: 20780 07/02/2017 THER/PROPH/DIAG INJ SC/IM CPT-4: 61524 07/02/2017 METHYLPREDNISOLONE INJECTION CPT-4: J2930 07/02/2017 PRESCRIP TRANSMIT VIA ERX SY CPT-4: G8553 05/29/2017 ROUTINE VENIPUNCTURE CPT-4: 41498 04/17/2017 ASSAY OF IRON CPT-4: 65166 04/17/2017 VITAMIN B-12 CPT-4: 67042 04/17/2017 COMPREHEN METABOLIC PANEL CPT-4: 95476 04/17/2017 COMPLETE CBC W/AUTO DIFF WBC CPT-4: 64489 04/17/2017 ASSAY OF FERRITIN CPT-4: 13415 04/17/2017 ASSAY THYROID STIM HORMONE CPT-4: 33005 04/17/2017 A1C HPLC CPT-4: 02232 04/17/2017 DRAIN/INJECT JOINT/BURSA CPT-4: 39250 02/01/2017 TRIAMCINOLONE ACET INJ NOS CPT-4: J3301 02/01/2017 DEXAMETHASONE SODIUM PHOS CPT-4: J1100 02/01/2017 ROUTINE VENIPUNCTURE CPT-4: 04435 12/27/2016 COMPLETE CBC W/AUTO DIFF WBC CPT-4: 74108 12/27/2016 ROUTINE VENIPUNCTURE CPT-4: 02143 12/21/2016 COMPLETE CBC W/AUTO DIFF WBC CPT-4: 25501 12/21/2016 ROUTINE VENIPUNCTURE CPT-4: 24323 12/12/2016 COMPLETE CBC W/AUTO DIFF WBC CPT-4: 87465 12/12/2016 PRESCRIP TRANSMIT VIA ERX SY CPT-4: G8553 10/31/2016 PRESCRIP TRANSMIT VIA ERX SY CPT-4: G8553 10/03/2016 PRESCRIP TRANSMIT VIA ERX SY CPT-4: G8553 09/04/2016 DESTRUCT PREMALG LESION (Cryosurgery) CPT-4: 97245 DESTRUCT PREMALG LES 2-14 CPT-4: 39736 08/22/2016 PRESCRIP TRANSMIT VIA ERX SY CPT-4: G8553 08/10/2016 PRESCRIP TRANSMIT VIA ERX SY CPT-4: G8553 07/06/2016 FLU VACC PRSV FREE INC ANTIG 65 AND OLDER CPT-4: 54183 06/13/2016 PNEUMOCOCCAL VACC 13 OLIVIA IM CPT-4: 63767 06/13/2016 ADMIN INFLUENZA VIRUS VAC CPT-4: G0008 06/13/2016 ADMIN PNEUMOCOCCAL VACCINE CPT-4: G0009 06/13/2016 CERUM REMOVAL CPT-4: 74968 04/05/2016 PRESCRIP TRANSMIT VIA ERX SY CPT-4: G8553 04/03/2016 ROUTINE VENIPUNCTURE CPT-4: 90641 03/06/2016 ASSAY OF FREE THYROXINE CPT-4: 29381 03/06/2016 ASSAY THYROID STIM HORMONE CPT-4: 75864 03/06/2016 COMPREHEN METABOLIC PANEL CPT-4: 63608 03/06/2016 COMPLETE CBC W/AUTO DIFF WBC CPT-4: 55340 03/06/2016 LIPID PANEL CPT-4: 72699 03/06/2016 ASSAY OF PSA TOTAL CPT-4: 18716 03/06/2016 TESTOSTERONE TOTAL - MALE CPT-4: 53535 03/06/2016 A1C HPLC CPT-4: 74307 03/06/2016 ASSAY OF IRON CPT-4: 86366 03/06/2016 VITAMIN B-12 CPT-4: 49263 03/06/2016 INJ TENDON SHEATH/LIGAMENT CPT-4: 58238 02/17/2016 TRIAMCINOLONE ACET INJ NOS CPT-4: J3301 02/17/2016 DEXAMETHASONE SODIUM PHOS CPT-4: J1100 02/17/2016 PRESCRIP TRANSMIT VIA ERX SY CPT-4: G8553 01/31/2016 PRESCRIP TRANSMIT VIA ERX SY CPT-4: G8553 12/30/2015 PRESCRIP TRANSMIT VIA ERX SY CPT-4: G8553 12/06/2015 PRESCRIP TRANSMIT VIA ERX SY CPT-4: G8553 11/15/2015 PPPS, subseq visit CPT-4: G0439 10/05/2015 MICROALBUMIN QUANTITATIVE CPT-4: 88817 10/05/2015 PROTEIN/CREAT URINE WITH RATIO CPT-4: 10573|57565 6 ROUTINE VENIPUNCTURE CPT-4: 48404 07/01/2015 ASSAY OF FREE THYROXINE CPT-4: 12140 07/01/2015 ASSAY THYROID STIM HORMONE CPT-4: 93754 07/01/2015 COMPLETE CBC W/AUTO DIFF WBC CPT-4: 93755 07/01/2015 LIPID PANEL CPT-4: 69774 07/01/2015 ASSAY OF PSA TOTAL CPT-4: 95404 07/01/2015 AEROBIC WOUND CULTURE & STN CPT-4: 06890 06/28/2015 PRESCRIP TRANSMIT VIA ERX SY CPT-4: G8553 06/28/2015 AEROBIC WOUND CULTURE & STN CPT-4: 97855 06/03/2015 PRESCRIP TRANSMIT VIA ERX SY CPT-4: G8553 06/03/2015 ROUTINE VENIPUNCTURE CPT-4: 60105 06/01/2015 COMPREHEN METABOLIC PANEL CPT-4: 81677 06/01/2015 A1C HPLC CPT-4: 99372 06/01/2015 COMPREHEN METABOLIC PANEL CPT-4: 02641 02/25/2015 A1C HPLC CPT-4: 29891 02/25/2015 DESTRUCT PREMALG LESION (Cryosurgery) CPT-4: 81487 PROTEIN/CREAT URINE WITH RATIO CPT-4: 66915|09793 5 MICROALBUMIN QUANTITATIVE CPT-4: 98490 10/27/2014 INFLUENZA ASSAY W/OPTIC CPT-4: 35929 10/21/2014 PRESCRIP TRANSMIT VIA ERX SY CPT-4: G8553 10/06/2014 PRESCRIP TRANSMIT VIA ERX SY CPT-4: G8553 09/21/2014 PRESCRIP TRANSMIT VIA ERX SY CPT-4: G8553 09/02/2014 MICROALBUMIN QUANTITATIVE CPT-4: 95294 08/27/2014 PROTEIN/CREAT URINE WITH RATIO CPT-4: 52408|15261 4 PPPS, subseq visit CPT-4: G0439 08/10/2014 ROUTINE VENIPUNCTURE CPT-4: 48705 08/05/2014 ASSAY OF FREE THYROXINE CPT-4: 63172 08/05/2014 ASSAY THYROID STIM HORMONE CPT-4: 75640 08/05/2014 COMPREHEN METABOLIC PANEL CPT-4: 87560 08/05/2014 COMPLETE CBC W/AUTO DIFF WBC CPT-4: 67080 08/05/2014 LIPID PANEL CPT-4: 02696 08/05/2014 A1C HPLC CPT-4: 62990 08/05/2014 FLUZONE, 5ML (Medicare) CPT-4: Q2038 08/05/2014 ADMIN INFLUENZA VIRUS VAC CPT-4: G0008 08/05/2014 METHYLPREDNISOLONE 40 MG INJ CPT-4: J1030 12/16/2013 TRIAMCINOLONE ACET INJ NOS CPT-4: J3301 12/16/2013 DRAIN/INJECT JOINT/BURSA CPT-4: 43715 12/16/2013 PRESCRIP TRANSMIT VIA ERX SY CPT-4: G8553 10/09/2013 THER/PROPH/DIAG INJ SC/IM CPT-4: 65336 09/18/2013 METHYLPREDNISOLONE 40 MG INJ CPT-4: J1030 09/18/2013 TRIAMCINOLONE ACET INJ NOS CPT-4: J3301 09/18/2013 PRESCRIP TRANSMIT VIA ERX SY CPT-4: G8553 09/18/2013 PRESCRIP TRANSMIT VIA ERX SY CPT-4: G8553 08/13/2013 ROUTINE VENIPUNCTURE CPT-4: 32356 06/25/2013 ASSAY OF FREE THYROXINE CPT-4: 54907 06/25/2013 ASSAY THYROID STIM HORMONE CPT-4: 46788 06/25/2013 COMPREHEN METABOLIC PANEL CPT-4: 91793 06/25/2013 COMPLETE CBC W/AUTO DIFF WBC CPT-4: 78700 06/25/2013 LIPID PANEL CPT-4: 57944 06/25/2013 A1C GLYCOSYLATED HEMOGLOBIN TEST CPT-4: 48162 013 ROUTINE VENIPUNCTURE CPT-4: 70757 04/09/2013 COMPLETE CBC W/AUTO DIFF WBC CPT-4: 15504 04/09/2013 MYCOPLASMA ANTIBODY, IFA CPT-4: 15854D0 04/09/2013 ROUTINE VENIPUNCTURE CPT-4: 94669 02/11/2013 ASSAY OF FREE THYROXINE CPT-4: 19536 02/11/2013 ASSAY THYROID STIM HORMONE CPT-4: 12434 02/11/2013 COMPREHEN METABOLIC PANEL CPT-4: 98213 02/11/2013 COMPLETE CBC W/AUTO DIFF WBC CPT-4: 19775 02/11/2013 VITAMIN B 12 FOLIC ACID CPT-4: 91706|78510 02/11/2013 C-REACTIVE PROTEIN CPT-4: 80579 02/11/2013 A1C GLYCOSYLATED HEMOGLOBIN TEST CPT-4: 99354 013 ASSAY OF BLOOD/URIC ACID CPT-4: 17648 02/11/2013 CEFTRIAXONE SODIUM INJECTION CPT-4: J0696 01/31/2013 THER/PROPH/DIAG INJ SC/IM CPT-4: 23843 01/31/2013 THER/PROPH/DIAG INJ SC/IM CPT-4: 24732 01/31/2013 METHYLPREDNISOLONE 40 MG INJ CPT-4: J1030 01/31/2013 TRIAMCINOLONE ACET INJ NOS CPT-4: J3301 01/31/2013 ROUTINE VENIPUNCTURE CPT-4: 47233 09/19/2012 COMPREHEN METABOLIC PANEL CPT-4: 20473 09/19/2012 LIPID PANEL CPT-4: 26437 09/19/2012 A1C GLYCOSYLATED HEMOGLOBIN TEST CPT-4: 55944 012 PNEUMOCOCCAL VACC 23 OLIVIA IM CPT-4: 49597 07/10/2012 FLUZONE, 5ML (Medicare) CPT-4: Q2038 07/10/2012 ADMIN INFLUENZA VIRUS VAC CPT-4: G0008 07/10/2012 ADMIN PNEUMOCOCCAL VACCINE CPT-4: G0009 07/10/2012 ROUTINE VENIPUNCTURE CPT-4: 97419 05/06/2012 ASSAY OF FREE THYROXINE CPT-4: 95492 05/06/2012 ASSAY THYROID STIM HORMONE CPT-4: 44959 05/06/2012 COMPREHEN METABOLIC PANEL CPT-4: 12204 05/06/2012 COMPLETE CBC W/AUTO DIFF WBC CPT-4: 91068 05/06/2012 LIPID PANEL CPT-4: 03853 05/06/2012 A1C GLYCOSYLATED HEMOGLOBIN TEST CPT-4: 89297 012 IMMUNIZATION ADMIN CPT-4: 00618 02/05/2012 FLUZONE, 5ML (Medicare) CPT-4: Q2038 08/10/2011 ADMIN INFLUENZA VIRUS VAC CPT-4: G0008 08/10/2011 ROUTINE VENIPUNCTURE CPT-4: 20061 07/26/2011 ASSAY OF FREE THYROXINE CPT-4: 79259 07/26/2011 ASSAY THYROID STIM HORMONE CPT-4: 37308 07/26/2011 COMPREHEN METABOLIC PANEL CPT-4: 52203 07/26/2011 COMPLETE CBC W/AUTO DIFF WBC CPT-4: 14483 07/26/2011 LIPID PANEL CPT-4: 94896 07/26/2011 A1C GLYCOSYLATED HEMOGLOBIN TEST CPT-4: 11764 011 ASSAY OF PSA TOTAL CPT-4: 95854 07/26/2011 ROUTINE VENIPUNCTURE CPT-4: 57773 01/19/2011 ASSAY OF NATRIURETIC PEPTIDE CPT-4: 48231 01/19/2011 THER/PROPH/DIAG INJ SC/IM CPT-4: 73843 01/19/2011 CEFTRIAXONE SODIUM INJECTION CPT-4: J0696 01/19/2011 METHYLPREDNISOLONE INJECTION CPT-4: J2930 01/19/2011 THER/PROPH/DIAG INJ SC/IM CPT-4: 11603 01/19/2011 THER/PROPH/DIAG INJ SC/IM CPT-4: 78219 01/18/2011 CEFTRIAXONE SODIUM INJECTION CPT-4: J0696 01/18/2011 METHYLPREDNISOLONE INJECTION CPT-4: J2930 01/18/2011 THER/PROPH/DIAG INJ SC/IM CPT-4: 85670 01/18/2011 THER/PROPH/DIAG INJ SC/IM CPT-4: 81586 12/21/2010 TESTOSTERONE CYPIONAT 100 MG CPT-4: J1070 12/21/2010 ROUTINE VENIPUNCTURE CPT-4: 31496 12/19/2010 TESTOSTERONE TOTAL - MALE CPT-4: 53595 12/19/2010 ROUTINE VENIPUNCTURE CPT-4: 52044 12/07/2010 COMPLETE CBC W/AUTO DIFF WBC CPT-4: 59913 12/07/2010 COMPREHEN METABOLIC PANEL CPT-4: 27970 12/07/2010 LIPID PANEL CPT-4: 14590 12/07/2010 A1C GLYCOSYLATED HEMOGLOBIN TEST CPT-4: 00107 011 ASSAY OF PSA TOTAL CPT-4: 34937 12/07/2010 ROUTINE VENIPUNCTURE CPT-4: 45228 04/05/2010 PRESCRIP TRANSMIT VIA ERX SY CPT-4: G8553 04/05/2010 ROUTINE VENIPUNCTURE CPT-4: 30406 01/13/2010 METHYLPREDNISOLONE INJECTION CPT-4: J2930 12/22/2009 THER/PROPH/DIAG INJ SC/IM CPT-4: 10790 12/22/2009 THER/PROPH/DIAG INJ SC/IM CPT-4: 19891 12/22/2009 CEFTRIAXONE SODIUM INJECTION CPT-4: J0696 12/22/2009 ROUTINE VENIPUNCTURE CPT-4: 33732 12/22/2009 COMPLETE CBC W/AUTO DIFF WBC CPT-4: 41734 12/22/2009 RBC SED RATE, AUTOMATED CPT-4: 53174 12/22/2009 RPR FE/E/EN/L/M 20.1-30.0 CM CPT-4: 92312 12/22/2009 EKG FOR INITIAL PREVENT EXAM CPT-4: G0403 12/22/2009 THER/PROPH/DIAG INJ SC/IM CPT-4: 52145 12/16/2009 KETOROLAC TROMETHAMINE INJ CPT-4: J1885 12/16/2009 [...] 1: 126/68 Code: 8480-6 BMI: 30.2 Code: 40886-8 Heart Rate 1: 92 bpm Height: 6' Respiratory Rate: 22 bpm SpO2: 94% Tempera ture: 36.9 (C) / 98.5 (F) Weight: 223 lbs 08/21/2018 Blood Pressure 1: 160/70 Code: 8480-6 Heart Rate 1: 79 bpm Respiratory Rate: 20 bpm SpO2: 94% Temperature: 36.7 (C) / 98.0 (F) We ight: 226 lbs 8 oz 08/07/2018 Blood Pressure 1: 138/70 Code: 8480-6 BMI: 30.1 Code: 43698-9 Heart Rate 1: 80 bpm Height: 6' Respiratory Rate: 20 bpm SpO2: 94% Tempera ture: 36.9 (C) / 98.5 (F) Weight: 222 lbs 05/23/2018 Blood Pressure 1: 148/66 Code: 8480-6 BMI: 30.0 Code: 53097-3 Heart Rate 1: 96 bpm Height: 6' Respiratory Rate: 22 bpm SpO2: 94% Tempera ture: 37.3 (C) / 99.1 (F) Weight: 221 lbs 05/02/2018 Blood Pressure 1: 146/78 Code: 8480-6 BMI: 29.6 Code: 76077-0 Heart Rate 1: 78 bpm Height: 6' Respiratory Rate: 26 bpm SpO2: 94% Tempera ture: 35.7 (C) / 96.2 (F) Weight: 218 lbs 04/29/2018 Blood Pressure 1: 142/62 Code: 8480-6 BMI: 28.6 Code: 34098-8 Heart Rate 1: 82 bpm Height: 6' Respiratory Rate: 22 bpm SpO2: 98% Tempera ture: 36.4 (C) / 97.6 (F) Weight: 211 lbs 04/22/2018 Blood Pressure 1: 126/64 Code: 8480-6 BMI: 30.0 Code: 19437-8 Heart Rate 1: 96 bpm Height: 6' [...] 1: 144/78 Code: 8480-6 BMI: 30.7 Code: 39163-1 Heart Rate 1: 92 bpm Height: 6' Respiratory Rate: 28 bpm SpO2: 94% Tempera ture: 36.9 (C) / 98.4 (F) Weight: 226 lbs 12/28/2017 Blood Pressure 1: 136/80 Code: 8480-6 Heart Rate 1: 92 bpm Respiratory Rate: 28 bpm SpO2: 94% Temperature: 36.7 (C) / 98.1 (F) 12/21/2017 Blood Pressure 1: 146/84 Code: 8480-6 BMI: 31.1 Code: 05890-5 Heart Rate 1: 84 bpm Height: 6' [...] 1: 142/64 Code: 8480-6 BMI: 31.3 Code: 42274-3 Heart Rate 1: 98 bpm Height: 6' Respiratory Rate: 24 bpm SpO2: 94% Tempera ture: 36.4 (C) / 97.6 (F) Weight: 231 lbs 10/17/2017 Blood Pressure 1: 140/68 Code: 8480-6 BMI: 31.7 Code: 31952-2 Heart Rate 1: 88 bpm Height: 6' Respiratory Rate: 20 bpm SpO2: 94% Tempera ture: 36.8 (C) / 98.3 (F) Weight: 234 lbs 08/02/2017 Blood Pressure 1: 142/80 Code: 8480-6 BMI: 31.1 Code: 00713-4 Heart Rate 1: 86 bpm Height: 6' Respiratory Rate: 20 bpm SpO2: 90% Tempera ture: 35.9 (C) / 96.7 (F) Weight: 229 lbs 07/02/2017 Blood Pressure 1: 146/64 Code: 8480-6 BMI: 29.6 Code: 71252-6 Heart Rate 1: 96 bpm Height: 6' Respiratory Rate: 20 bpm Temperature: 36 .4 (C) / 97.6 (F) Weight: 218 lbs 05/29/2017 Blood Pressure 1: 152/68 Code: 8480-6 BMI: 31.5 Code: 61564-5 Heart Rate 1: 100 bpm Height: 6' Respiratory Rate: 20 bpm SpO2: 92% Tempera ture: 36.9 (C) / 98.4 (F) Weight: 232 lbs 02/01/2017 Blood Pressure 1: 146/64 Code: 8480-6 BMI: 30.7 Code: 02295-4 Heart Rate 1: 76 bpm Height: 6' Respiratory Rate: 20 bpm SpO2: 95% Tempera ture: 36.8 (C) / 98.2 (F) Weight: 226 lbs 01/29/2017 Blood Pressure 1: 146/78 Code: 8480-6 Heart Rate 1: 84 bpm Respiratory Rate: 20 bpm SpO2: 96% Temperature: 36.1 (C) / 97.0 (F) We ight: 226 lbs 12/21/2016 Blood Pressure 1: 126/60 Code: 8480-6 BMI: 30.8 Code: 42033-8 Heart Rate 1: 88 bpm Height: 6' Respiratory Rate: 22 bpm SpO2: 94% Tempera ture: 36.7 (C) / 98.0 (F) Weight: 227 lbs 12/14/2016 Blood Pressure 1: 126/70 Code: 8480-6 BMI: 29.8 Code: 40515-2 Heart Rate 1: 92 bpm Height: 6' Respiratory Rate: 22 bpm SpO2: 93% Tempera ture: 36.8 (C) / 98.2 (F) Weight: 220 lbs 11/14/2016 Blood Pressure 1: 128/62 Code: 8480-6 Heart Rate 1: 100 bpm Respiratory Rate: 20 bpm SpO2: 96% Temperature: 36.6 (C) / 97.8 (F) We ight: 220 lbs 10/31/2016 Blood Pressure 1: 142/60 Code: 8480-6 BMI: 30.1 Code: 79764-6 Heart Rate 1: 112 bpm Height: 6' Respiratory Rate: 24 bpm SpO2: 93% Tempera ture: 37.1 (C) / 98.7 (F) Weight: 222 lbs 10/03/2016 Blood Pressure 1: 136/78 Code: 8480-6 Heart Rate 1: 106 bpm Respiratory Rate: 24 bpm SpO2: 93% Temperature: 36.6 (C) / 97.8 (F) We ight: 221 lbs 09/04/2016 Blood Pressure 1: 112/44 Code: 8480-6 BMI: 30.1 Code: 74092-4 Heart Rate 1: 90 bpm Height: 6' Respiratory Rate: 20 bpm SpO2: 93% Tempera ture: 36.6 (C) / 97.9 (F) Weight: 222 lbs 08/22/2016 Blood Pressure 1: 142/68 Code: 8480-6 BMI: 30.4 Code: 80028-1 Heart Rate 1: 100 bpm Height: 6' Respiratory Rate: 24 bpm SpO2: 93% Tempera ture: 36.7 (C) / 98.1 (F) Weight: 224 lbs 08/10/2016 Blood Pressure 1: 134/60 Code: 8480-6 BMI: 30.2 Code: 35379-4 Heart Rate 1: 76 bpm Height: 6' [...] 1: 122/72 Code: 8480-6 BMI: 30.7 Code: 67929-8 Heart Rate 1: 96 bpm Height: 6' Respiratory Rate: 22 bpm SpO2: 96% Tempera ture: 35.9 (C) / 96.7 (F) Weight: 226 lbs 04/03/2016 Blood Pressure 1: 146/64 Code: 8480-6 BMI: 30.8 Code: 38783-5 Heart Rate 1: 76 bpm Height: 6' Respiratory Rate: 20 bpm Temperature: 36 .8 (C) / 98.2 (F) Weight: 227 lbs 03/02/2016 Blood Pressure 1: 148/60 Code: 8480-6 BMI: 31.1 Code: 26221-4 Heart Rate 1: 80 bpm Height: 6' Respiratory Rate: 22 bpm SpO2: 94% Tempera ture: 36.6 (C) / 97.8 (F) Weight: 229 lbs 02/17/2016 Blood Pressure 1: 132/60 Code: 8480-6 BMI: 31.3 Code: 63590-9 Heart Rate 1: 80 bpm Height: 6' Respiratory Rate: 20 bpm Temperature: 36 .9 (C) / 98.4 (F) Weight: 231 lbs 02/14/2016 Blood Pressure 1: 126/70 Code: 8480-6 BMI: 31.3 Code: 86397-1 Heart Rate 1: 80 bpm Height: 6' Respiratory Rate: 24 bpm SpO2: 95% Tempera ture: 36.9 (C) / 98.5 (F) Weight: 231 lbs 01/31/2016 Blood Pressure 1: 136/60 Code: 8480-6 Heart Rate 1: 76 bpm Respiratory Rate: 22 bpm Temperature: 37.0 (C) / 98.6 (F) Weight: 230 lbs 12/30/2015 Blood Pressure 1: 128/58 Code: 8480-6 BMI: 31.2 Code: 10802-1 Heart Rate 1: 80 bpm Height: 6' Respiratory Rate: 20 bpm Temperature: 36 .8 (C) / 98.2 (F) Weight: 230 lbs 12/16/2015 Blood Pressure 1: 122/60 Code: 8480-6 BMI: 32.0 Code: 00683-1 Heart Rate 1: 84 bpm Height: 6' Respiratory Rate: 24 bpm Temperature: 37 .1 (C) / 98.7 (F) Weight: 236 lbs 12/06/2015 Blood Pressure 1: 162/74 Code: 8480-6 BMI: 32.5 Code: 12022-4 Heart Rate 1: 90 bpm Height: 6' Respiratory Rate: 20 bpm SpO2: 96% Tempera ture: 36.4 (C) / 97.6 (F) Weight: 240 lbs 11/15/2015 Blood Pressure 1: 166/80 Code: 8480-6 BMI: 32.4 Code: 72123-2 Heart Rate 1: 92 bpm Height: 6' Respiratory Rate: 28 bpm Temperature: 36 .5 (C) / 97.7 (F) Weight: 239 lbs 10/05/2015 Blood Pressure 1: 146/76 Code: 8480-6 BMI: 32.4 Code: 04454-3 Heart Rate 1: 88 bpm Height: 6' Respiratory Rate: 28 bpm Temperature: 37 .1 (C) / 98.7 (F) Weight: 239 lbs 07/22/2015 Blood Pressure 1: 144/68 Code: 8480-6 BMI: 31.9 Code: 04862-1 Heart Rate 1: 88 bpm Height: 6' [...] 1: 142/64 Code: 8480-6 BMI: 32.1 Code: 62148-4 Heart Rate 1: 80 bpm Height: 6' Respiratory Rate: 18 bpm Temperature: 36 .4 (C) / 97.6 (F) Weight: 237 lbs 06/07/2015 Blood Pressure 1: 164/58 Code: 8480-6 BMI: 32.1 Code: 87729-7 Heart Rate 1: 88 bpm Height: 6' Respiratory Rate: 20 bpm Temperature: 36 .6 (C) / 97.9 (F) Weight: 237 lbs 06/03/2015 Blood Pressure 1: 152/64 Code: 8480-6 BMI: 32.1 Code: 52358-1 Heart Rate 1: 96 bpm Height: 6' Respiratory Rate: 20 bpm Temperature: 37 .4 (C) / 99.3 (F) Weight: 237 lbs 06/01/2015 Blood Pressure 1: 136/70 Code: 8480-6 BMI: 31.7 Code: 56541-0 Heart Rate 1: 72 bpm Height: 6' Respiratory Rate: 22 bpm SpO2: 94% Tempera ture: 36.6 (C) / 97.9 (F) Weight: 234 lbs 02/25/2015 Blood Pressure 1: 146/80 Code: 8480-6 BMI: 32.4 Code: 64121-6 Heart Rate 1: 84 bpm Height: 6' Respiratory Rate: 28 bpm Temperature: 36 .7 (C) / 98.0 (F) Weight: 239 lbs 10/27/2014 Blood Pressure 1: 168/70 Code: 8480-6 BMI: 32.0 Code: 57728-3 Heart Rate 1: 80 bpm Height: 6' Respiratory Rate: 30 bpm SpO2: 98% Tempera ture: 36.4 (C) / 97.6 (F) Weight: 236 lbs 10/21/2014 Blood Pressure 1: 152/58 Code: 8480-6 BMI: 32.1 Code: 76593-3 Heart Rate 1: 78 bpm Height: 6' Respiratory Rate: 20 bpm Temperature: 37 .8 (C) / 100.1 (F) Weight: 237 lbs 10/06/2014 Blood Pressure 1: 132/64 Code: 8480-6 BMI: 32.5 Code: 25193-6 Heart Rate 1: 88 bpm Height: 6' Respiratory Rate: 32 bpm SpO2: 94% Tempera ture: 36.8 (C) / 98.2 (F) Weight: 240 lbs 09/21/2014 Blood Pressure 1: 134/68 Code: 8480-6 BMI: 32.4 Code: 67327-0 Heart Rate 1: 96 bpm Height: 6' Respiratory Rate: 30 bpm Temperature: 36 .7 (C) / 98.1 (F) Weight: 239 lbs 09/08/2014 Blood Pressure 1: 128/74 Code: 8480-6 BMI: 32.4 Code: 83919-5 Heart Rate 1: 82 bpm Height: 6' Respiratory Rate: 28 bpm SpO2: 93% Tempera ture: 36.6 (C) / 97.8 (F) Weight: 239 lbs 09/02/2014 Blood Pressure 1: 164/78 Code: 8480-6 Heart Rate 1: 86 bpm Respiratory Rate: 22 bpm SpO2: 96% Temperature: 36.1 (C) / 97.0 (F) We ight: 239 lbs 08/10/2014 Blood Pressure 1: 152/60 Code: 8480-6 BMI: 32.8 Code: 83676-0 Heart Rate 1: 80 bpm Height: 6' [...] 1: 146/80 Code: 8480-6 BMI: 33.9 Code: 07983-3 Heart Rate 1: 80 bpm Height: 6' [...] 1: 148/78 Code: 8480-6 BMI: 30.5 Code: 94111-9 Heart Rate 1: 84 bpm Height: 6' Respiratory Rate: 28 bpm SpO2: 97% Tempera ture: 36.4 (C) / 97.5 (F) Weight: 225 lbs 08/06/2013 Blood Pressure 1: 158/70 Code: 8480-6 Heart Rate 1: 110 bpm Respiratory Rate: 22 bpm SpO2: 88% Temperature: 39.7 (C) / 103.4 (F) W eight: 07/16/2013 Blood Pressure 1: 148/82 Code: 8480-6 BMI: 31.9 Code: 39721-7 Heart Rate 1: 80 bpm Height: 6' Respiratory Rate: 20 bpm Temperature: 36 .6 (C) / 97.9 (F) Weight: 235 lbs 04/09/2013 Blood Pressure 1: 142/78 Code: 8480-6 BMI: 31.5 Code: 00928-2 Heart Rate 1: 88 bpm Height: 6' Respiratory Rate: 32 bpm SpO2: 95% Tempera ture: 37.0 (C) / 98.6 (F) Weight: 232 lbs 02/11/2013 Blood Pressure 1: 146/70 Code: 8480-6 Heart Rate 1: 88 bpm Respiratory Rate: 20 bpm Temperature: 36.8 (C) / 98.3 (F) Weight: 230 lbs 01/31/2013 Blood Pressure 1: 128/70 Code: 8480-6 BMI: 31.6 Code: 63994-6 Heart Rate 1: 84 bpm Height: 6' Respiratory Rate: 24 bpm SpO2: 92% Tempera ture: 36.7 (C) / 98.0 (F) Weight: 233 lbs 01/20/2013 Blood Pressure 1: 148/64 Code: 8480-6 BMI: 31.6 Code: 64342-6 Heart Rate 1: 68 bpm Height: 6' Temperature: 36.1 (C) / 97.0 (F) Weight: 233 lbs 12/19/2012 Blood Pressure 1: 128/68 Code: 8480-6 BMI: 32.0 Code: 85850-9 Heart Rate 1: 64 bpm Height: 6' Temperature: 36.7 (C) / 98.0 (F) Weight: 236 lbs 10/21/2012 Blood Pressure 1: 142/64 Code: 8480-6 BMI: 30.9 Code: 19405-6 Heart Rate 1: 74 bpm Height: 6' Temperature: 36.2 (C) / 97.1 (F) Weight: 228 lbs 09/18/2012 Blood Pressure 1: 126/60 Code: 8480-6 BMI: 31.3 Code: 90218-7 Heart Rate 1: 88 bpm Height: 6' Respiratory Rate: 20 bpm Temperature: 36 .5 (C) / 97.7 (F) Weight: 231 lbs 08/28/2012 Blood Pressure 1: 132/68 Code: 8480-6 BMI: 31.5 Code: 15102-4 Heart Rate 1: 92 bpm Height: 6' Respiratory Rate: 30 bpm SpO2: 94% Tempera ture: 37.1 (C) / 98.7 (F) Weight: 232 lbs 07/10/2012 Blood Pressure 1: 118/70 Code: 8480-6 BMI: 30.5 Code: 27830-9 Heart Rate 1: 72 bpm Height: 6' Respiratory Rate: 24 bpm SpO2: 96% Tempera ture: 36.7 (C) / 98.0 (F) Weight: 225 lbs 05/09/2012 Blood Pressure 1: 124/68 Code: 8480-6 BMI: 29.8 Code: 48560-5 Heart Rate 1: 72 bpm Height: 6' Respiratory Rate: 20 bpm Temperature: 36 .8 (C) / 98.2 (F) Weight: 220 lbs 10/02/2011 Blood Pressure 1: 140/82 Code: 8480-6 BMI: 30.7 Code: 88190-7 Heart Rate 1: 68 bpm Height: 6' Temperature: 36.7 (C) / 98.0 (F) Weight: 226 lbs 08/07/2011 Blood Pressure 1: 122/68 Code: 8480-6 BMI: 30.5 Code: 48772-8 Heart Rate 1: 72 bpm Height: 6' [...] 1: 140/78 Code: 8480-6 BMI: 31.9 Code: 03371-3 Heart Rate 1: 84 bpm Height: 6' Temperature: 36.6 (C) / 97.8 (F) Weight: 235 lbs 12/22/2009 Blood Pressure 1: 140/74 Code: 8480-6 BMI: 31.9 Code: 20922-1 Heart Rate 1: 94 bpm Height: 6' SpO2: 92% Temperature: 35.7 (C) / 96.2 (F) Weight: 235 lbs 12/13/2009 Blood Pressure 1: 146/80 Code: 8480-6 BMI: 33.0 Code: 98301-1 Heart Rate 1: 86 bpm Height: 6' [...] shot follow up 05/08/2019 follow up 04/07/2019 [facility] dizziness 03/24/2019 dizziness 03/21/2019 sore throat 03/13/2019 Patient finished zit hromax last night and has one dose of prednisone left follow up 03/10/2019 ER fwup---patient cu rrently taking zithromax, prednisone and breathing treatments every two hours spasms/spasticity 02/26/2019 follow up 02/13/2019 follow up 01/14/2019 [facility] follow up 12/25/2018 cough 12/09/2018 here [...] up 07/02/2017 Patient recently ariel campos on [facility], but never picked up. He was also given prednisone/Zpack on 06/16/17 from walk in clinic. Patient is also in consult with Dr Benjamin. patient dc'd from hospital last week and reports that he is still taking the antibiotic that was prescribed to him (augmentin) and finished out the prednisone. Patient reports he was going to call his compensation analyst today. follow up 05/29/2017 Discuss Low Back [...] nightly. Patient has just been discharged from [facility] with Pneumonia. Currently on Levaquin once daily. [...] would like evaluated follow up 06/13/2016 [facility] COPD w/exac 06/01/2016 Patient states chest tightness, shortness of breath, and fatigue have worsened in the last 2-3 weeks with exertion. otalgia 04/26/2016 cerumen 04/05/2016 Patient has been maximiliano ing ear drops follow up 04/03/2016 2mo fwup follow up 03/13/2016 Patient here for [facility] on medication education for insulin [...] 02/25/2015 3mo fwup follow up 10/27/2014 [facility] cough 10/21/2014 follow up 10/06/2014 follow up 09/21/2014 [facility] follow up 09/08/2014 [facility] cough 09/02/2014 well man exam (65+ years) 08/10/2014 lab draw 08/05/2014 flu shot follow up 05/05/2014 6wk fwup follow up 03/24/2014 2wk fw shortness of breath 03/10/2014 shoulder pain 12/16/2013 Request back brace w hen working/lifting---chiropractor had recommended he get one to wear shortness of breath 10/09/2013 cough 09/18/2013 follow up 08/13/2013 [facility] cough 08/06/2013 follow up 07/16/2013 lab [...] 12/13/2009 Encounters Encounter Performer Location Codes Date ([id number]) OFFICE/OUTPATIENT VISIT EST Diagnosis: Chronic obstructive pulmonary disease, unspecified[ICD10: J44.9] Lita BARAKAT [facility] CPT-4: 19542 02/04/2020 ([id number]) OFFICE/OUTPATIENT VISIT EST Diagnosis: Chronic obstructive pulmonary disease with (acute) exacerbation[ICD10: J44.1] Lita Ramirez [employer] [facility] CPT- 4: 62983 12/25/2019 ([id number]) OFFICE/OUTPATIENT VISIT EST Diagnosis: Noncompliance with diabetes treatment[ICD10: Z91.19] Diagnosis: Insomnia[ICD10: G47.00] Diagnosis: Pain in right knee[ICD10: M25.561] Lita Barakat [facility] CPT-4: 58782 12/22/2019 ([id number]) OFFICE/OUTPATIENT VISIT EST Diagnosis: Chronic respiratory failure with hypercapnia[ICD10: J96.12] Diagnosis: Chronic airway obstruction, not elsewhere classified[ICD10: J44.9] Diagnosis: Basal cell carcinoma, face[ICD10: C44.310] [facility]: 68376 11/12/2019 ([id number]) OFFICE/OUTPATIENT VISIT EST Diagnosis: Chronic obstructive pulmonary disease, unspecified[ICD10: J44.9] Diagnosis: Right thyroid nodule[ICD10: E04.1] [facility]: 79910 09/11/2019 ([id number]) OFFICE/OUTPATIENT VISIT EST Diagnosis: Chronic bronchitis[ICD10: J42] 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] Diagnosis: FLU VACCINE[ICD10: Z23] Lita [facility] CPT-4: 87158 08/07/2019 ([id number]) OFFICE/OUTPATIENT VISIT EST Diagnosis: Chronic obstructive pulmonary disease with (acute) exacerbation[ICD10: J44.1] [facility]PT- [facility]: 38765 07/14/2019 ([id number]) OFFICE/OUTPATIENT VISIT EST Diagnosis: Primary insomnia[ICD10: F51.01] Diagnosis: Dyspepsia and other specified disorders of function of stomach[ICD10: K31.89] [facility]: 87235 07/01/2019 ([id number]) OFFICE/OUTPATIENT VISIT EST Diagnosis: Epigastric pain[ICD10: R10.13] Diagnosis: Nausea[ICD10: R11.0] Diagnosis: Weight loss[ICD10: R63.4] [facility]: 46599 06/24/2019 ([id number]) OFFICE/OUTPATIENT VISIT EST Diagnosis: Chronic obstructive pulmonary disease, unspecified[ICD10: J44.9] Diagnosis: Chronic insomnia[ICD10: F51.04] Diagnosis: Anemia[ICD10: D64.9] Diagnosis: Diplopia[ICD10: H53.2] Diagnosis: [place][ICD10: F30.9] [facility]: 79682 06/17/2019 ([id number]) NURSE/OUTPATIENT VISIT EST Diagnosis: Vitamin B12 deficiency anemia, unspecified[ICD10: D51.9] Lita BARAKAT DO [facility] CPT-4: 18659 06/10/2019 ([id number]) NURSE/OUTPATIENT VISIT EST Diagnosis: Vitamin B12 deficiency anemia, unspecified[ICD10: D51.9] Lita BARAKAT DO [facility] CPT-4: 35871 06/02/2019 ([id number]) NURSE/OUTPATIENT VISIT EST Diagnosis: Vitamin B12 deficiency anemia, unspecified[ICD10: D51.9] Lita BARAKAT DO [facility] CPT-4: 38230 05/27/2019 ([id number]) NURSE/OUTPATIENT VISIT EST Diagnosis: Vitamin B12 deficiency anemia, unspecified[ICD10: D51.9] Lita BARAKAT DO [facility] CPT-4: 37472 05/12/2019 ([id number]) OFFICE/OUTPATIENT VISIT EST Diagnosis: Restless legs syndrome[ICD10: G25.81] Diagnosis: Primary insomnia[ICD10: F51.01] Diagnosis: Anemia, unspecified[ICD10: D64.9] Diagnosis: Type 2 diabetes mellitus with hyperglycemia[ICD10: E11.65] Diagnosis: Vitamin D deficiency, unspecified[ICD10: E55.9] Lita BARAKAT DO [facility] CPT-4: 52792 05/08/2019 ([id number]) OFFICE/OUTPATIENT VISIT EST Diagnosis: Pain in right knee[ICD10: M25.561] Diagnosis: Restless legs syndrome[ICD10: G25.81] Diagnosis: Insomnia, unspecified[ICD10: G47.00] Lita BARAKAT DO [facility] [place] CPT-4: 22419 04/07/2019 ([id number]) NO CHARGE Diagnosis: Chronic obstructive pulmonary disease with (acute) exacerbation[ICD10: J44.1] Diagnosis: Dizziness and giddiness[ICD10: R42] Diagnosis: Generalized anxiety disorder[ICD10: F41.1] Autumn BARAKAT DO [facility] [place] CPT-4: 37335 03/24/2019 ([id number]) OFFICE/OUTPATIENT VISIT EST Diagnosis: Chronic obstructive pulmonary disease with (acute) exacerbation[ICD10: J44.1] Diagnosis: Dizziness and giddiness[ICD10: R42] Autumn BARAKAT DO [facility] [place] CPT-4: 00878 03/21/2019 ([id number]) OFFICE/OUTPATIENT VISIT EST Diagnosis: Candidal stomatitis[ICD10: B37.0] Lita BARAKAT DO [facility] [place] CPT-4: 89502 03/13/2019 ([id number]) OFFICE/OUTPATIENT VISIT EST Diagnosis: Chronic obstructive pulmonary disease with acute lower respiratory infection[ICD10: J44.0] Diagnosis: Restless legs syndrome[ICD10: G25.81] Lita BARAKAT DO [facility] [place] CPT-4: 59195 03/10/2019 ([id number]) OFFICE/OUTPATIENT VISIT EST Diagnosis: Restless legs syndrome[ICD10: G25.81] Lita BARAKAT [facility] CPT-4: 86950 02/26/2019 ([id number]) OFFICE/OUTPATIENT VISIT EST Diagnosis: Primary insomnia[ICD10: F51.01] Diagnosis: Chronic obstructive pulmonary disease, unspecified[ICD10: J44.9] Lita BARAKAT DO [facility] [place] CPT-4: 62805 02/13/2019 ([id number]) OFFICE/OUTPATIENT VISIT EST Diagnosis: Chronic obstructive pulmonary disease, unspecified[ICD10: J44.9] Diagnosis: Chronic respiratory failure with hypoxia[ICD10: J96.11] Diagnosis: Chronic respiratory failure with hypercapnia[ICD10: J96.12] Lita BARAKAT DO [facility] [place] CPT-4: 18492 01/14/2019 ([id number]) OFFICE/OUTPATIENT VISIT EST Diagnosis: Chronic respiratory failure with hypoxia[ICD10: J96.11] Diagnosis: Patient's noncompliance with other medical treatment and regimen[ICD10: Z91.19] Diagnosis: Chronic obstructive pulmonary disease with (acute) exacerbation[ICD10: J44.1] Lita BARAKAT [facility] CPT- 4: 79189 12/25/2018 ([id number]) OFFICE/OUTPATIENT VISIT EST Diagnosis: Essential (primary) hypertension[ICD10: I10] Diagnosis: Type 2 diabetes mellitus with hyperglycemia[ICD10: E11.65] Diagnosis: Hypothyroidism, unspecified[ICD10: E03.9] Diagnosis: Hyperlipidemia, unspecified[ICD10: E78.5] Diagnosis: Acute recurrent maxillary sinusitis[ICD10: J01.01] Ines Lavonne ALYLINE DonovanFerdinand YUVAL [facility] CPT-4: 34638 12/09/2018 ([id number]) OFFICE/OUTPATIENT VISIT EST Diagnosis: Candidal stomatitis[ICD10: B37.0] Lita Farnsworth DonovanFerdinand [facility] CPT-4: 01971 12/05/2018 ([id number]) OFFICE/OUTPATIENT VISIT EST Diagnosis: Acute recurrent sinusitis, unspecified[ICD10: J01.91] Diagnosis: Pain in right knee[ICD10: M25.561] Lita GONZALES DonovanFerdinand [facility] CPT-4: 87681 10/23/2018 ([id number]) OFFICE/OUTPATIENT VISIT EST Diagnosis: Restless legs syndrome[ICD10: G25.81] Diagnosis: Basal cell carcinoma of skin of scalp and neck[ICD10: C44.41] Lita Gianniirina CRAWFORD DonovanFerdinand [facility] CPT-4: 79406 08/21/2018 ([id number]) OFFICE/OUTPATIENT VISIT EST Diagnosis: Chronic obstructive pulmonary disease with acute lower respiratory infection[ICD10: J44.0] Diagnosis: Restless legs syndrome[ICD10: G25.81] Lita TRAN DonovanFerdinand [facility] CPT-4: 29725 08/07/2018 ([id number]) OFFICE/OUTPATIENT VISIT EST Diagnosis: Chronic obstructive pulmonary disease with acute lower respiratory infection[ICD10: J44.0] Lita CRAWFORD DonovanFerdinand [facility] CPT-4: 58380 05/23/2018 ([id number]) OFFICE/OUTPATIENT VISIT EST Diagnosis: Candidal stomatitis[ICD10: B37.0] Lita Farnsworth DonovanFerdinand [facility] CPT-4: 39509 05/02/2018 ([id number]) OFFICE/OUTPATIENT VISIT EST Diagnosis: Candidal stomatitis[ICD10: B37.0] Diagnosis: Other retention of urine[ICD10: R33.8] Diagnosis: Chronic obstructive pulmonary disease with acute lower respiratory infection[ICD10: J44.0] Autumn BARAKAT DO [facility] CPT-4: 58464 04/29/2018 ([id number]) OFFICE/OUTPATIENT VISIT EST Diagnosis: Chronic obstructive pulmonary disease with acute lower respiratory infection[ICD10: J44.0] Lita BARAKAT DO [facility] CPT-4: 88868 04/22/2018 ([id number]) OFFICE/OUTPATIENT VISIT EST Diagnosis: Unilateral primary osteoarthritis, right knee[ICD10: M17.11] Diagnosis: Squamous cell carcinoma of skin, unspecified[ICD10: C44.92] Lita BARAKAT DO [facility] CPT-4: 60830 01/28/2018 ([id number]) OFFICE/OUTPATIENT VISIT EST Diagnosis: Pain in right knee[ICD10: M25.561] Diagnosis: 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] Lita BARAKAT DO [facility] CPT-4: 33535 01/23/2018 ([id number]) OFFICE/OUTPATIENT VISIT EST Diagnosis: Urinary tract infection, site not specified[ICD10: N39.0] Diagnosis: Chronic obstructive pulmonary disease with acute lower respiratory infection[ICD10: J44.0] Lita BARAKAT DO [facility] CPT-4: 82454 01/02/2018 ([id number]) OFFICE/OUTPATIENT VISIT EST Diagnosis: Chronic obstructive pulmonary disease with (acute) exacerbation[ICD10: J44.1] Autumn BARAKAT DO [facility] CPT- 4: 16447 12/28/2017 ([id number]) OFFICE/OUTPATIENT VISIT EST Diagnosis: Acute bronchitis, unspecified[ICD10: J20.9] Autumn BARAKAT DO [facility] CPT-4: 49703 12/21/2017 ([id number]) OFFICE/OUTPATIENT VISIT EST Diagnosis: Chronic obstructive pulmonary disease with acute lower respiratory infection[ICD10: J44.0] Diagnosis: Pain in right knee[ICD10: M25.561] Autumn BARAKAT [facility] CPT-4: 00582 12/17/2017 ([id number]) OFFICE/OUTPATIENT VISIT EST Diagnosis: Laceration without foreign body of right hand, sequela[ICD10: S61.411S] Diagnosis: Restless legs syndrome[ICD10: G25.81] Lita Barakat ALIZEONIEL AGNE Ashley [facility] CPT-[facility]: 26692 10/17/2017 OFFICE/OUTPATIENT VISIT EST Diagnosis: Chronic obstructive pulmonary disease with acute lower respiratory infection[ICD10: J44.0] Autumn BARAKAT [facility] CPT-4: 27764 08/02/2017 ([id number]) OFFICE/OUTPATIENT VISIT EST Diagnosis: PNEUMOCOCCAL VACCINE[ICD10: Z23] [facility]ita [facility]: 36418 07/24/2017 OFFICE/OUTPATIENT VISIT EST Diagnosis: Chronic obstructive pulmonary disease with (acute) exacerbation[ICD10: J44.1] Autumn BARAKAT [facility] CPT- 4: 70001 07/02/2017 OFFICE/OUTPATIENT VISIT EST Diagnosis: Low back pain[ICD10: M54.5] Ruchi Ramirez Filiberto BR[facility] CPT-4: 20868 05/29/2017 ([id number]) OFFICE/OUTPATIENT VISIT EST Diagnosis: Essential (primary) hypertension[ICD10: I10] Diagnosis: Hypothyroidism, unspecified[ICD10: E03.9] Diagnosis: Dizziness and giddiness[ICD10: R42] Diagnosis: Other abnormality of red blood cells[ICD10: R71.8] Diagnosis: Contracture of muscle, unspecified site[ICD10: M62.40] Lita Yuval ALYLINE DonovanFerdinand [facility] CPT-4: 88651 04/17/2017 OFFICE/OUTPATIENT VISIT EST Diagnosis: Pain in left shoulder[ICD10: M25.512] Ruchi TRAN DonovanFerdinand [facility] CPT-4: 49859 01/29/2017 ([id number]) OFFICE/OUTPATIENT VISIT EST Diagnosis: Anemia, unspecified[ICD10: D64.9] Lita BARAKAT DO [facility] CPT-4: 02887 12/27/2016 ([id number]) OFFICE/OUTPATIENT VISIT EST Diagnosis: Other fatigue[ICD10: R53.83] Diagnosis: Other iron deficiency anemias[ICD10: D50.8] Lita BARAKAT DO [facility] CPT-4: 52895 12/21/2016 ([id number]) OFFICE/OUTPATIENT VISIT EST Diagnosis: Anemia, unspecified[ICD10: D64.9] Diagnosis: Other fatigue[ICD10: R53.83] Diagnosis: Restless legs syndrome[ICD10: G25.81] Lita BARAKAT DO [facility] CPT-4: 45885 12/14/2016 ([id number]) OFFICE/OUTPATIENT VISIT EST Diagnosis: Anemia, unspecified[ICD10: D64.9] Diagnosis: Other abnormality of red blood cells[ICD10: R71.8] Lita BARAKAT DO [facility] CPT-4: 81415 12/12/2016 ([id number]) OFFICE/OUTPATIENT VISIT EST Diagnosis: Pneumonia, unspecified organism[ICD10: J18.9] Diagnosis: Restless legs syndrome[ICD10: G25.81] Magda BARAKAT DO [facility] CPT-4: 97899 11/14/2016 ([id number]) OFFICE/OUTPATIENT VISIT EST Diagnosis: Candidal stomatitis[ICD10: B37.0] Lita BARAKAT DO [facility] CPT-4: 67774 10/31/2016 ([id number]) OFFICE/OUTPATIENT VISIT EST Diagnosis: Acute upper respiratory infection, unspecified[ICD10: J06.9] Diagnosis: Personal history of pneumonia (recurrent)[ICD10: Z87.01] Magda BARAKAT DO [facility] CPT-4: 23490 10/03/2016 ([id number]) OFFICE/OUTPATIENT VISIT EST Diagnosis: Restless legs syndrome[ICD10: G25.81] Diagnosis: Insomnia, unspecified[ICD10: G47.00] Magda [facility] CPT-4: 98521 09/04/2016 ([id number]) OFFICE/OUTPATIENT VISIT EST Diagnosis: Restless legs syndrome[ICD10: G25.81] Diagnosis: Primary insomnia[ICD10: F51.01] Lita BARAKAT [facility] CPT-4: 96159 08/10/2016 OFFICE/OUTPATIENT VISIT EST Diagnosis: Toxic gastroenteritis and colitis[ICD10: K52.1] Diagnosis: Dizziness and giddiness[ICD10: R42] Diagnosis: Headache[ICD10: R51] Diagnosis: Restless legs syndrome[ICD10: G25.81] [facility]ita [facility]: 15907 07/06/2016 ([id number]) OFFICE/OUTPATIENT VISIT EST Diagnosis: Chest pain, unspecified[ICD10: R07.9] Diagnosis: Dyspnea, unspecified[ICD10: R06.00] Magda [facility] CPT-[facility]: 84849 06/22/2016 ([id number]) OFFICE/OUTPATIENT VISIT EST 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] Diagnosis: PNEUMOCOCCAL VACCINE[ICD10: Z23] Diagnosis: FLU VACCINE[ICD10: Z23] Lita [facility] CPT-4: 72913 06/13/2016 ([id number]) OFFICE/OUTPATIENT VISIT EST Diagnosis: Chest pain, unspecified[ICD10: R07.9] Diagnosis: Other forms of dyspnea[ICD10: R06.09] Diagnosis: Shortness of breath[ICD10: R06.02] Diagnosis: Other fatigue[ICD10: R53.83] Magda [facility] CPT-4: 26325 06/01/2016 ([id number]) OFFICE/OUTPATIENT VISIT EST Diagnosis: Unspecified hearing loss, left ear[ICD10: H91.92] Diagnosis: Other specified disorders of Eustachian tube, left ear[ICD10: H69.82] Magda Navneet [facility] CPT-4: 17188 11/2015 ([id number]) OFFICE/OUTPATIENT VISIT EST Diagnosis: Impacted cerumen, bilateral[ICD10: H61.23] Diagnosis: DM W/O COMPLICATION TYPE I, 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: E10.9] Diagnosis: Generalized anxiety disorder[ICD10: F41.1] Lita Gianniirina LITA Ashely BARAKAT DO [facility] CPT-4: 74475 04/03/2016 ([id number]) OFFICE/OUTPATIENT VISIT EST Diagnosis: 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] Lita CRAWFORD DonovanFerdinand [facility] CPT - 4: 02644 03/13/2016 ([id number]) OFFICE/OUTPATIENT VISIT EST Diagnosis: Type 2 diabetes mellitus with hyperglycemia[ICD10: E11.65] Diagnosis: Hyperlipidemia, unspecified[ICD10: E78.5] Diagnosis: Essential (primary) hypertension[ICD10: I10] Diagnosis: Chronic obstructive pulmonary disease, unspecified[ICD10: J44.9] Diagnosis: Testicular hypofunction[ICD10: E29.1] Diagnosis: Male erectile dysfunction, unspecified[ICD10: N52.9] Diagnosis: Anemia, unspecified[ICD10: D64.9] Lita Farnsworth DonovanFerdinand [facility] [employer] [facility] CPT-4: 95669 03/06/2016 ([id number]) OFFICE/OUTPATIENT VISIT EST Diagnosis: Type 2 diabetes mellitus with hyperglycemia[ICD10: E11.65] Diagnosis: Hyperlipidemia, unspecified[ICD10: E78.5] Diagnosis: Chronic obstructive pulmonary disease, unspecified[ICD10: J44.9] Diagnosis: Male erectile dysfunction, unspecified[ICD10: N52.9] Lita CRAWFORD DonovanFerdinand [facility] CPT-4: 32322 03/02/2016 ([id number]) OFFICE/OUTPATIENT VISIT EST Diagnosis: Pain in right foot[ICD10: M79.671] Magda GONZALES DonovanFerdinand [facility] [employer] [facility] CPT-4: 61218 02/14/2016 OFFICE/OUTPATIENT VISIT EST Diagnosis: Generalized anxiety disorder[ICD10: F41.1] Lita CRAWFORD DonovanFerdinand [facility] CPT-4: 25302 01/31/2016 ([id number]) OFFICE/OUTPATIENT VISIT EST Diagnosis: Generalized anxiety disorder[ICD10: F41.1] Lita BARAKAT [employer] [facility] CPT-4: 87481 12/30/2015 ([id number]) OFFICE/OUTPATIENT VISIT EST Diagnosis: Localized swelling, mass and lump, neck[ICD10: R22.1] Lita BARAKAT DO [facility] CPT-4: 06821 12/16/2015 OFFICE/OUTPATIENT VISIT EST Diagnosis: Localized enlarged lymph nodes[ICD10: R59.0] Diagnosis: Otalgia, left ear[ICD10: H92.02] Stephanie BARAKAT DO [facility] CPT-4: 14038 12/06/2015 OFFICE/OUTPATIENT VISIT EST Diagnosis: Localized enlarged lymph nodes[ICD10: R59.0] Diagnosis: Squamous cell carcinoma of skin, unspecified[ICD10: C44.92] Diagnosis: Actinic keratosis[ICD10: L57.0] Stephanie BARAKAT DO [facility] CPT-4: 72219 11/15/2015 OFFICE/OUTPATIENT VISIT EST Diagnosis: Cellulitis of left lower limb[ICD10: L03.116] Diagnosis: Encounter for examination and observation for other specified reasons[ICD10: Z04.8] Diagnosis: Chronic obstructive pulmonary disease, unspecified[ICD10: J44.9] Stephanie BARAKAT DO [facility] CPT-4: 38332 07/22/2015 OFFICE/OUTPATIENT VISIT EST Diagnosis: Other specified joint disorders, left knee[ICD10: M25.862] Diagnosis: Cellulitis of left lower limb[ICD10: L03.116] Diagnosis: Other fatigue[ICD10: R53.83] Diagnosis: Hyperlipidemia, unspecified[ICD10: E78.5] Stephanie BARAKAT DO [facility] CPT-4: 57250 07/01/2015 OFFICE/OUTPATIENT VISIT EST Diagnosis: Pain in left knee[ICD10: M25.562] Diagnosis: Cellulitis of left lower limb[ICD10: L03.116] Diagnosis: Other specified joint disorders, left knee[ICD10: M25.862] Stephanie VanBecelaere LITA S. ORENDER DO [facility] CPT-4: 79380 06/28/2015 OFFICE/OUTPATIENT VISIT EST Diagnosis: PREPATELLAR BURSITIS[ICD9: 726.65] Diagnosis: Cellulitis of knee, left[ICD9: 682.6] Stephanie BARAKAT DO [facility] CPT-4: 97952 06/09/2015 ([id number]) OFFICE/OUTPATIENT VISIT EST Diagnosis: PREPATELLAR BURSITIS[ICD9: 726.65] Diagnosis: Cellulitis of knee, left[ICD9: 682.6] Lita BARAKAT DO [facility] CPT-4: 94053 06/07/2015 OFFICE/OUTPATIENT VISIT EST Diagnosis: Cellulitis of knee, left[ICD9: 682.6] Stephanie BARAKAT DO [facility] CPT-4: 47314 06/03/2015 ([id number]) OFFICE/OUTPATIENT VISIT EST Diagnosis: DM W/O COMPLICATION TYPE II, UNCONTROLLED[ICD9: 250.02] Diagnosis: COPD[ICD9: 496] Lita BARAKAT [facility] CPT- 4: 59843 06/01/2015 ([id number]) OFFICE/OUTPATIENT VISIT EST Diagnosis: COPD[ICD9: 496] Diagnosis: DYSPNEA[ICD9: 786.09] Diagnosis: DM W/O COMPLICATION TYPE II, UNCONTROLLED[ICD9: 250.02] Diagnosis: Actinic keratosis[ICD9: 702.0] Lita BARAKAT [facility] CPT-4: 36358 02/25/2015 ([id number]) OFFICE/OUTPATIENT VISIT EST Diagnosis: ASTHMA NOS[ICD9: 493.90] Diagnosis: COPD[ICD9: 496] Diagnosis: DM W/O COMPLICATION TYPE II, UNCONTROLLED[ICD9: 250.02] Lita BARAKAT DO [facility] CPT-4: 20904 10/27/2014 OFFICE/OUTPATIENT VISIT EST Diagnosis: DYSPNEA[ICD9: 786.09] Diagnosis: COPD[ICD9: 496] Lita BARAKAT [facility] CPT- 4: 28797 10/06/2014 ([id number]) OFFICE/OUTPATIENT VISIT EST Diagnosis: PNEUMONIA, ORGANISM[ICD9: 486] Diagnosis: COPD[ICD9: 496] Diagnosis: DYSPNEA[ICD9: 786.09] Lita BARAKAT DO [facility] CPT-4: 65779 09/21/2014 OFFICE/OUTPATIENT VISIT EST Diagnosis: PNEUMONIA, ORGANISM[ICD9: 486] Diagnosis: DYSPNEA[ICD9: 786.09] Diagnosis: COUGH[ICD9: 786.2] Stephanie BARAKAT DO [facility] CPT-4: 44085 09/08/2014 OFFICE/OUTPATIENT VISIT EST Diagnosis: COPD with exacerbation[ICD9: 491.21] Diagnosis: COUGH[ICD9: 786.2] Diagnosis: DYSPNEA[ICD9: 786.09] Stephanie BARAKAT DO [facility] CPT-4: 35571 09/02/2014 ([id number]) OFFICE/OUTPATIENT VISIT EST Diagnosis: DM W/O COMPLICATION TYPE II, UNCONTROLLED[ICD9: 250.02] Lita BARAKAT [facility] CPT-4: 13945 08/27/2014 ([id number]) OFFICE/OUTPATIENT VISIT EST Diagnosis: DM W/O COMPLICATION TYPE II, UNCONTROLLED[ICD9: 250.02] Diagnosis: HYPERLIPIDEMIA NEC/NOS[ICD9: 272.4] Diagnosis: HYPERTENSION[ICD9: 401.9] Diagnosis: COPD[ICD9: 496] Diagnosis: FLU VACCINE[ICD10: Z23] Lita PABLO [facility] CPT-4: 97489 08/05/2014 ([id number]) OFFICE/OUTPATIENT VISIT EST Diagnosis: COPD[ICD9: 496] Diagnosis: Lumbar degenerative disc disease[ICD9: 722.52] Lita BARAKAT DO [facility] CPT-4: 39337 05/05/2014 OFFICE/OUTPATIENT VISIT EST Diagnosis: DYSPNEA[ICD9: 786.09] Diagnosis: COPD[ICD9: 496] Lita BARAKAT [facility] CPT- 4: 75437 03/24/2014 ([id number]) OFFICE/OUTPATIENT VISIT EST Diagnosis: COPD[ICD9: 496] Diagnosis: DYSPNEA[ICD9: 786.09] [facility]ita [facility] CPT[facility]: 39438 03/10/2014 OFFICE/OUTPATIENT VISIT EST Diagnosis: Subacromial bursitis[ICD9: 726.19] Diagnosis: Chronic low back pain[ICD9: 724.2] Diagnosis: Lumbar degenerative disc disease[ICD9: 722.52] Lita ALYLINE [facility]erdinand [facility]: 99776 12/16/2013 ([id number]) OFFICE/OUTPATIENT VISIT EST Diagnosis: PHARYNGITIS, ACUTE[ICD9: 462] Diagnosis: COPD[ICD9: 496] Lita ALYLINE DonovanFerdinand [facility] CPT- 4: 71297 10/09/2013 OFFICE/OUTPATIENT VISIT EST Diagnosis: COPD[ICD9: 496] Diagnosis: Acute exacerbation of chronic obstructive pulmonary disease (COPD)[ICD9: 491.21] Ruchi Buchanan LITA DonovanFerdinand [facility] CPT-4: 89971 09/18/2013 ([id number]) OFFICE/OUTPATIENT VISIT EST Diagnosis: PNEUMONIA, ORGANISM[ICD9: 486] Diagnosis: DM W/O COMPLICATION TYPE II[ICD9: 250.00] Lita ALYLINE DonovanFerdinand [facility] CPT-4: 91709 08/13/2013 ([id number]) OFFICE/OUTPATIENT VISIT EST Diagnosis: DM W/O COMPLICATION TYPE II, UNCONTROLLED[ICD9: 250.02] Diagnosis: HYPERLIPIDEMIA NEC/NOS[ICD9: 272.4] Diagnosis: HYPERTENSION[ICD9: 401.9] Diagnosis: DYSPNEA[ICD9: 786.09] Diagnosis: Family history of CABG[ICD9: V17.49] Litacarol ALY JESSICA Ashley [facility] CPT-4: 33640 07/16/2013 ([id number]) OFFICE/OUTPATIENT VISIT EST Diagnosis: DM W/O COMPLICATION TYPE II, UNCONTROLLED[ICD9: 250.02] Diagnosis: HYPERLIPIDEMIA NEC/NOS[ICD9: 272.4] Diagnosis: HYPERTENSION[ICD9: 401.9] [facility]: 83522 06/25/2013 OFFICE/OUTPATIENT VISIT EST Diagnosis: COUGH[ICD9: 786.2] Diagnosis: COPD[ICD9: 496] Kimberly BARAKAT [facility] CPT- 4: 10493 04/09/2013 ([id number]) OFFICE/OUTPATIENT VISIT EST Diagnosis: Muscle spasm[ICD9: 728.85] Diagnosis: ARTHRALGIA-MULTIPLE SITES[ICD9: 719.49] Lita Yuval [facility] CPT-[facility]: 76528 02/11/2013 OFFICE/OUTPATIENT VISIT EST Diagnosis: COPD with exacerbation[ICD9: 491.21] Diagnosis: BRONCHITIS, ACUTE[ICD9: 466.0] Ruchi Buchanan LITA [facility] CPT-4: 91592 01/31/2013 OFFICE/OUTPATIENT VISIT EST Diagnosis: COUGH[ICD9: 786.2] Diagnosis: PHARYNGITIS, ACUTE[ICD9: 462] Diagnosis: SINUSITIS, ACUTE[ICD9: 461.9] Lita [facility] CPT-[facility]: 14238 01/20/2013 OFFICE/OUTPATIENT VISIT EST Diagnosis: DIZZINESS/VERTIGO[ICD9: 780.4] [facility]: 044[facility] 12/19/2012 OFFICE/OUTPATIENT VISIT EST Diagnosis: Skin lesion of left arm[ICD9: 709.9] Diagnosis: Otitis externa[ICD9: 380.10] Diagnosis: PHARYNGITIS, ACUTE[ICD9: 462] Lita Yuval [facility] CPT-[facility]: 84161 10/21/2012 ([id number]) OFFICE/OUTPATIENT VISIT EST Diagnosis: DM W/O COMPLICATION TYPE II, UNCONTROLLED[ICD9: 250.02] Diagnosis: HYPERLIPIDEMIA NEC/NOS[ICD9: 272.4] Diagnosis: HYPERTENSION[ICD9: 401.9] [facility]: 10391 09/19/2012 ([id number]) OFFICE/OUTPATIENT VISIT EST Diagnosis: DM W/O COMPLICATION TYPE II, UNCONTROLLED[ICD9: 250.02] Diagnosis: HYPERLIPIDEMIA NEC/NOS[ICD9: 272.4] Diagnosis: COPD[ICD9: 496] Lita BARAKAT DO [facility] CPT- 4: 78306 09/18/2012 ([id number]) OFFICE/OUTPATIENT VISIT EST Diagnosis: BRONCHITIS, ACUTE[ICD9: 466.0] Diagnosis: SINUSITIS, ACUTE[ICD9: 461.9] Lita BARAKAT DO [facility] CPT-4: 03305 08/28/2012 ([id number]) OFFICE/OUTPATIENT VISIT EST Diagnosis: COPD[ICD9: 496] Diagnosis: DYSPNEA[ICD9: 786.09] Diagnosis: VAC STREP PNEUMONIAE-FLU (Medicare)[ICD9: V06.6] Lita BARAKAT DO [facility] CPT-4: 87171 07/10/2012 ([id number]) OFFICE/OUTPATIENT VISIT EST Diagnosis: DM W/O COMPLICATION TYPE II, UNCONTROLLED[ICD9: 250.02] Diagnosis: HYPERTENSION[ICD9: 401.9] Diagnosis: HYPERLIPIDEMIA NEC/NOS[ICD9: 272.4] Diagnosis: DIZZINESS/VERTIGO[ICD9: 780.4] Lita BARAKAT [employer] [facility] CPT-4: 75826 05/09/2012 ([id number]) OFFICE/OUTPATIENT VISIT EST Diagnosis: DM W/O COMPLICATION TYPE II, UNCONTROLLED[ICD9: 250.02] Diagnosis: HYPERLIPIDEMIA NEC/NOS[ICD9: 272.4] Diagnosis: HYPERTENSION[ICD9: 401.9] Diagnosis: MALAISE AND FATIGUE[ICD9: 780.79] Lita BARAKAT [employer] [facility] CPT-4: 86439 05/06/2012 OFFICE/OUTPATIENT VISIT EST Diagnosis: COUGH[ICD9: 786.2] Diagnosis: SINUSITIS, ACUTE[ICD9: 461.9] Diagnosis: PHARYNGITIS, ACUTE[ICD9: 462] Lita BARAKAT DO [facility] CPT-4: 58640 10/02/2011 OFFICE/OUTPATIENT VISIT EST Diagnosis: DM W/O COMPLICATION TYPE II, UNCONTROLLED[ICD9: 250.02] Diagnosis: HYPERLIPIDEMIA NEC/NOS[ICD9: 272.4] Diagnosis: HYPERTENSION[ICD9: 401.9] Diagnosis: COPD[ICD9: 496] Lita VALERIO CPT- 4: 87912 08/07/2011 OFFICE/OUTPATIENT VISIT EST [facility]ita [facility] CPT- 4: 16761 04/03/2011 ([id number]) OFFICE/OUTPATIENT VISIT EST Lita PALACIOS [facility] CPT-4: 09973 01/18/2011 ([id number]) OFFICE/OUTPATIENT VISIT EST Lita PALACIOS [facility] CPT-4: 54489 12/19/2010 ([id number]) OFFICE/OUTPATIENT VISIT, EST Lita CASTELLANOSNDER DO [facility] CPT-4: 76827 04/05/2010 ([id number]) OFFICE/OUTPATIENT VISIT, EST Lita HOLMAN SFerdinand [facility] CPT-4: 63941 01/13/2010 ([id number]) OFFICE/OUTPATIENT VISIT, EST Lita [facility] CPT-4: 49141 12/23/2009 ([id number]) OFFICE/OUTPATIENT VISIT, EST Lita HOLMAN [facility] CPT-4: 41847 12/22/2009 ([id number]) OFFICE/OUTPATIENT VISIT, EST Lita HOLMAN SFerdinand [facility] CPT-4: 10390 12/13/2009 Plan of Care Planned Activity Notes [...] : J44.1 12/25/2019 Appointment: Lita Barakat WPtel: [address] [place], [place] [phone] FOLLOW UP 12/25/2019 Patient Education: prednisone- [employer] Coupon 46490 [id number] https://www.NCR/Posto7/resources/getResource/61/[email or web address]-815n-88 Completed 12/25/2019 Visit Diagnosis Plan: Noncompliance with [...] : M25.561 12/22/2019 Appointment: Lita [facility]akat [facility]el[id number] [facility] 12/22/2019 Patient Education: baclofen- [employer] C[employer]on [id number] https://www.NCR/Posto7/resources/getResource/61/ky9vv514-hvd0-6fd1-72 Completed 12/22/2019 Visit Diagnosis Plan: Chronic respiratory [...] : C44.310 11/12/2019 Appointment: Lita Barakat WPtel: [address] [place], [place] [phone] ACUTE ILLNESS 11/12/2019 Care Plan: Referral Order SNOMED-CT : 30 [id number] Pending 11/12/2019 Care Plan: Referral Order SNOMED-CT : 30 [id number] Pending 11/12/2019 Visit Diagnosis Plan: Right thyroid nodule Discussion: Check thyroid US ICD-9 : 241.0 ICD-10 : E04.1 09/11/2019 Visit Diagnosis Plan: Chronic obstructive pulmonary di sease, unspecified Discussion: Start Pulmonary Rehab Reviewed results of CT of chest ordered by pulmonology Follow Up: 3 months ICD-9 : 496 ICD-10 : J44.9 09/11/2019 Appointment: Lita Barakat WPtel: [address] [place], [place] [phone] MEDICATION REVIEW 09/11/2019 Care Plan: US EXAM OF HEAD AND NECK LOIN C : 88799-7 Pending 09/11/2019 Visit Diagnosis Plan: Chronic bronchitis Discussion: A ugmentin for 10 days ICD-9 : 491.9 ICD-10 : J42 08/07/2019 Appointment: Lita Barakat WPtel: [address] [place], [place] [phone] ACUTE ILLNESS 08/07/2019 Visit Diagnosis Plan: Chronic [...] him that overuse of symbicort can cause assisted damage and the albuterol is to be used every 4 hours as needed. call office later this week with worsening or no improvement ICD-9 : 491.21 ICD-10 : J44.1 07/14/2019 Appointment: Autumn Oneil [address] ACUTE ILLNESS 07/14/2019 Visit Diagnosis Plan: [...] : F51.01 07/01/2019 Appointment: Lita Barakat WPtel: [address] [place] [address] FOLLOW UP 07/01/2019 Care Plan: CT ABDOMEN W/O DYE LOINC : 36 103-0 Pending 07/01/2019 Care Plan: Referral Order SNOMED-CT : 30 [id number] Pending 07/01/2019 Visit Diagnosis Plan: Weight loss [...] : R10.13 06/24/2019 Appointment: Lita Barakat WPtel: [address] [place] [address] ACUTE ILLNESS 06/24/2019 Patient Education: Seroquel- [employer] Coupon [id number] https://www.NCR/Posto7/resources/getResource/61/0yn1c1q5-d002-49g3-02 Completed 06/24/2019 Patient Education: ondansetron HCl- [employer] Coupon [id number] https://www.Posto7.com/samplemd/resources/getResource/61/8926845v-1210-43n4-a8 Completed 06/24/2019 Care Plan: US EXAM ABDOM COMPLETE LOINC : 68499-6 Pending 06/24/2019 Visit Diagnosis Plan: Chronic insomnia [...] ICD-10 : H53.2 06/17/2019 Appointment: Lita Barakattel: [address] [place], [place] [phone] US FOLLOW UP 06/17/2019 Appointment: Lita Barakat WPtel: [address] [place], [place] [phone] US INJECTION 06/10/2019 Appointment: Lita Barakat WPtel: [address] [place], [place] [phone] US INJECTION 06/02/2019 Appointment: Lita Barakat WPtel: [address] [place], [place] [phone] US INJECTION 05/27/2019 Appointment: Lita Barakat WPtel: [address] [place], [place] [phone] US INJECTION 05/12/2019 Visit Diagnosis Plan: Anemia, [...] : E55.9 05/08/2019 Appointment: Lita Barakat WPtel: [address] [place], [place] [phone] FOLLOW UP 05/08/2019 Visit Diagnosis Plan: Pain in right knee Discussion: S top tramadol and tylenol q HS Trial of Hydrocodone 10/325mg po q HS Recheck 1month ICD-9 : 719.46 ICD-10 : M25.561 04/07/2019 Appointment: Lita Barakat WPtel: [address] [place], [place] [phone] Hospital Follow Up 04/07/2019 Visit Diagnosis Plan: [...] ICD-10 : F41.1 03/24/2019 Appointment: Autumn Oneil [address] [place] [address] ACUTE ILLNESS 03/24/2019 Patient Education: hydroxyzine HCl- [employer] [id number] Completed 03/24/2019 Patient Education: pantoprazole- [employer] [id number] Completed 03/24/2019 Visit Diagnosis Plan: Chronic obstructiv e pulmonary disease with (acute) exacerbation Discussion: 90 mg solumedrol given in of fice. patient's portable oxygen tank was empty. [id number] patient on importance of monitoring oxygen tank [...] ICD-10 : R42 03/21/2019 Appointment: Autumn [place] [address] [place] [address] ACUTE ILLNESS 03/21/2019 Patient Education: ipratropium-albuterol- [employer] C taj [id number] https://www.Posto7.com/samplemd/resources/getResource/61/k3jd64f2-k9l2-0h9o-82 Completed 03/21/2019 Visit Diagnosis Plan: Chronic obstructiv e pulmonary disease with (acute) exacerbation Discussion: Solumedrol now Use SVNs with duoneb at least q4hrs Patient is supposed to be on continuous oxygen but not wearing ICD-9 : 491.21 ICD-10 : J44.1 03/13/2019 Visit Diagnosis Plan: Candidal stomatitis Discussion: Diflucan and Nystatin susp ICD-9 : 112.0 ICD-10 : B37.0 03/13/2019 Appointment: Lita Barakat WPtel: [address] [place] [address] ACUTE ILLNESS 03/13/2019 Patient Education: losartan- [employer] Coupon [id number] Completed 03/13/2019 Patient Education: nystatin- [employer] Coupon [id number] Completed 03/13/2019 Patient Education: fluconazole- [employer] Coupon [id number] Completed 03/13/2019 Visit Diagnosis Plan: Chronic obstructiv [...] : G25.81 03/10/2019 Appointment: Lita Barakat WPtel: [address] [place] [address] ACUTE ILLNESS 03/10/2019 Visit Diagnosis Plan: Restless legs syndrome Discussio n: Stop requip Increase sinemet to TID Add children's chewable MV with iron BID Add magnesium oxide 400mg daily Add Lyrica 75mg po q HS Stop trazadone Recheck 3 weeks Follow Up: 3 weeks ICD-9 : 333.94 ICD-10 : G25.81 02/26/2019 Appointment: Lita Barakat WPtel: [address] [place] [address] ACUTE ILLNESS 02/26/2019 Visit Diagnosis Plan: Primary insomnia Discussion: Tri al of doxepin 10-20mg po q HS prn sleep ICD-9 : 780.52 ICD-10 : F51.01 02/13/2019 Visit Diagnosis Plan: Chronic obstructive pulmonary di sease, unspecified Discussion: Stable Discussed trip to [place]--will get oxygen setup through [facility] ICD-9 : 496 ICD-10 : J44.9 02/13/2019 Appointment: Lita Barakat WPtel: [address] [place], [place] [phone] FOLLOW UP 02/13/2019 Patient Education: doxepin- [employer] Coupon [id number] https://www.NCR/samplemd/resources/getResource/61/40o2a99b-39ta-379g-1a Completed 02/13/2019 Appointment: Lita Barakat WPtel: [address] [place] [address] US CANCELED 01/20/2019 Visit Diagnosis Plan: Chronic obstructive pulmonary di marcello, unspecified Discussion: Stable on oxygen Given Symbicort samples Follow Up: 1 months ICD-9 : 496 ICD-10 : J44.9 01/14/2019 Appointment: Lita Barakat WPtel: [address] [place], [place] [id number] Hospital Follow Up 01/14/2019 Visit Diagnosis [...] : J96.11 12/25/2018 Appointment: Lita Barakat WPtel: [address] [place], [place] [phone] Hospital Follow Up 12/25/2018 Appointment: Lita Barakat WPtel: [address] [place], [place] [phone] [place] CANCELED 12/23/2018 Appointment: Ines Banerjee [address] [place], [place] [address] [place] CANCELED 12/20/2018 Visit Diagnosis Plan: Acute [...] ICD-10 : I10 12/09/2018 Appointment: Ines Banerjee [address] [place], [place] [address] LAB 12/09/2018 Patient Education: cefdinir- [employer] Coupon [id number] https://www.NCR/Posto7/resources/getResource/61/v3057z7n-53jn-9047-55 Completed 12/09/2018 Visit Diagnosis Plan: Candidal stomatitis Discussion: Diflucan for 5 days Hold atorvastatin while taking ICD-9 : 112.0 ICD-10 : B37.0 12/05/2018 Appointment: Lita Barakat WPtel: [address] [place] [address] ACUTE ILLNESS 12/05/2018 Patient Education: fluconazole- [employer]imize[employer] Coupon [id number] https://www.NCR/samplemd/resources/getResource/61/1l878i15-1nq3-37b2-21 Completed 12/05/2018 Appointment: Lita Barakat WPtel: [address] [place] [address] NO SHOW 11/11/2018 Visit Plan: Saline nasal [...] : J01.91 10/23/2018 Appointment: Lita Barakat WPtel: [address] [place], [place] [phone] ACUTE ILLNESS 10/23/2018 Patient Education: prednisone- Opt[employer] Coupon [id number] https://www.NCR/Posto7/resources/getResource/61/vj5rv898-fdcj-8908-32 Completed 10/23/2018 Care Plan: A1C HPLC LOINC : 03363-4 Pending 09/10/2018 Care Plan: COMPREHEN METABOLIC PANEL [place] : 08894-1 Pending 09/10/2018 Care Plan: CBC Pending 09/10/2018 [...] : G25.81 08/21/2018 Appointment: Lita Barakat WPtel: [address] [place], [place] [phone] ACUTE ILLNESS 08/21/2018 Care Plan: Referral Order SNOMED-CT : 30 2428515 Pending 08/21/2018 Visit Diagnosis Plan: Chronic obstructiv [...] : G25.81 08/07/2018 Appointment: Lita Barakat WPtel: [address] [place] [address] FOLLOW UP 08/07/2018 Appointment: Lita Barakat WPtel: [address] [place], [place] [id number] 07/18/18 1210---see note in chart (km) CANCELED 07/18/2018 Visit Diagnosis Plan: Chronic obstructiv e pulmonary disease with acute lower respiratory infection Discussion: Solumedrol 125mg IM Change t o trelagy 1 inhalation daily Use SVNs with albuterol q4hrs To ER this weekend if worsens Monitor weight/swelling ICD-9 : 496 ICD-10 : J44.0 05/23/2018 Appointment: Lita Barakat WPtel: [address] [place] [address] ACUTE ILLNESS 05/23/2018 Patient Education: Patient Medication Summary Completed 05/23/2018 Visit Diagnosis Plan: Candidal stomatitis Discussion: Diflucan for 7 more days--hold atrovastatin while taking ICD-9 : 112.0 ICD-10 : B37.0 05/02/2018 Appointment: Lita Barakat WPtel: [address] [place] [address] FOLLOW UP 05/02/2018 Patient Education: Patient Medication [...] ICD-10 : J44.0 04/29/2018 Appointment: Autumn [place] [address] [place], [place] [address] ACUTE ILLNESS 04/29/2018 Patient Education: Patient Medication [...] J44.0 04/22/2018 Appointment: [facility] [facility] [facility] 04/22/2018 Patient Education: Patient Medication Summary Completed 04/22/2018 Appointment: [facility]el[facility] [facility] 04/09/18 1640---see message in chart from [...] : M17.11 01/28/2018 Appointment: Lita Barakat WPtel: [address] [place] [address] ACUTE ILLNESS 01/28/2018 Patient Education: Patient Medication Summary Completed 01/28/2018 Care Plan: Referral Order SNOMED-CT : 30 1625588 Pending 01/28/2018 Care Plan: Referral Order SNOMED-CT : 30 2099007 Pending 01/28/2018 Visit Diagnosis Plan: Functional dyspepsia Discussion: Protonix Call in 1 week on how doing ICD-9 : 536.8 ICD-10 : K30 01/23/2018 Visit Diagnosis Plan: Pain in right knee Discussion: T opical voltaren gel QID ICD-9 : 719.46 ICD-10 : M25.561 01/23/2018 Appointment: Lita Barakat WPtel: [address] [place] [address] ACUTE ILLNESS 01/23/2018 Patient Education: Patient Medication [...] : N39.0 01/02/2018 Appointment: Lita Barakat WPtel: [address] [place] [address] ACUTE ILLNESS 01/02/2018 Patient Education: Patient Medication [...] ICD-10 : J44.1 12/28/2017 Appointment: Autumn [place] [address] [place] [address] Consult 12/28/2017 Patient Education: Patient Medication Summary [...] : J20.9 12/21/2017 Appointment: Autumn [place] [address] [facility] ACUTE ILLNESS 12/21/2017 Patient Education: Patient Medication Summary Completed 12/21/2017 Care Plan: X-RAY EXAM OF KNEE 1 OR 2 right [place] : 422[address]-3 Pending 12/18/2017 Visit Diagnosis Plan: Pain in [...] ICD-10 : J44.0 12/17/2017 Appointment: Autumn [place] [address] [place] [address] ACUTE ILLNESS 12/17/2017 Patient Education: Patient Medication Summary Completed 12/17/2017 Visit Diagnosis Plan: Unilateral primary osteoarthriti s, right knee Discussion: Right knee injection as above Warned of elevated BS after injection ICD-9 : 715.96 ICD-10 : M17.11 12/11/2017 Appointment: Lita Barakat WPtel: [address] [place] [address] OFFICE SURGERY 12/11/2017 Patient Education: Patient Medication Summary Completed 12/11/2017 Visit Diagnosis Plan: Actinic keratosis Discussion: Cr yotherapy as above If persists then will need excision by Dr. Swanson ICD-9 : 702.0 ICD-10 : L57.0 11/07/2017 Appointment: Lita Barakat WPtel: [address] [place] [address] ACUTE ILLNESS 11/07/2017 Patient Education: Patient Medication [...] S61.411S 10/17/2017 Appointment: Lita Barakat WPtel: [address] ER Follow UP 10/17/2017 Patient Education: Patient Medication Summary Completed 10/17/2017 Appointment: Lita Barakat WPtel: [address] [facility] [place] Consult 08/15/2017 Visit Diagnosis Plan: [...] ICD-10 : J44.0 08/02/2017 Appointment: Autumn [place] [address] [place] [address] ACUTE ILLNESS 08/02/2017 Patient Education: Patient Medication Summary Completed 08/02/2017 Patient Education: Patient Medication Summary Completed 07/31/2017 Care Plan: CHEST X-RAY 2VW FRONTAL&LATL LOINC : 27034-4 Pending 07/31/2017 Appointment: Lita Barakat WPtel: [facility]4 [facility] INJECTION 07/24/2017 Patient Education: Patient [...] : J44.1 07/02/2017 Appointment: Autumn [place] [address] ACUTE ILLNESS 07/02/2017 Patient Education: Patient Medication Summary Completed 07/02/2017 Care Plan: CHEST X-RAY 2VW FRONTAL&LATL LOINC : 41580-7 Pending 07/02/2017 Care Plan: MRI LUMBAR SPINE W/O DYE LOIN C : 83057-2 Pending 05/30/2017 Visit Plan: MRI at [facility] [place] codone 5.325 1 po q 4-6 hours prn pain #40 NR and Cyclobenzaprine (ERx) Continue warm packs for pain RTC if no improvement 05/29/2017 Appointment: Ruchi Buchanan WPtel: [address] [place] [address] ACUTE ILLNESS 05/29/2017 Patient Education: Patient Medication Summary Completed 05/29/2017 Appointment: Lita Barakat WPtel: [address] [place] [address] US CANCELED 05/24/2017 Patient Education: Patient Medication Summary Completed 05/22/2017 Care Plan: X-RAY EXAM L-S SPINE 2/3 VWS LOINC : 28174-8 Pending 05/22/2017 Appointment: Lita Barakat WPtel: [address] [place] [address] LAB 04/17/2017 Patient Education: Patient Medication Summary Completed 04/17/2017 Referral: Demetrius Benjamin WPtel: [address] [place] [address] Referral Initiated 04/05/2017 Appointment: Lita Barakat WPtel: [address] [place], [place] [phone] 03/30/17 0930---spoke with patient about ointments (km Consult 03/30/2017 Appointment: Lita Barakat WPtel: [address] [place], [place] [id number] 03/29/17 1320---spoke with patient, requip refilled wasn't received at pharmacy so verbally called (km) Consult 03/29/2017 Patient Education: Patient Medication Summary Completed 03/01/2017 Care Plan: CHEST X-RAY 2VW FRONTAL&LATL LOINC : 69345-6 Pending 03/01/2017 Visit Diagnosis Plan: Bursitis of left shoulder Discus yesi: Injection as above ICD-9 : 726.10 ICD-10 : M75.52 02/01/2017 Appointment: Lita Barakat WPtel: [address] [place] [address] 01/31 confirmed ~sl WORK IN 02/01/2017 Patient Education: Patient Medication Summary Completed 02/01/2017 Care Plan: X-RAY EXAM OF SHOULDER LOINC : 93409-4 Pending 01/30/2017 Visit Plan: May take OTC Tylenol/Ibuprof en as directed XRay at [facility] of left shoulder Tramadol 50mg 1 po q 6 hours prn pain called to [facility]. Sedation warning given (no driving, etc) RTC if no improvement 01/29/2017 Appointment: Ruchi Buchanan WPtel: [address] [place] [address] ACUTE ILLNESS 01/29/2017 Appointment: Ruchi Buchanan WPtel: [address] [place] [address] ACUTE ILLNESS 01/29/2017 Patient Education: Patient Medication Summary Completed 01/29/2017 Appointment: Lita Barakat WPtel: [address] [place], [place] [address] [place] Consult 01/10/2017 Appointment: Lita Barakat WPtel: [address] [place], [place] [phone] 12/27/2016 Patient Education: Patient Medication Summary Completed [...] 780.79 ICD-10 : R53.83 12/21/2016 Appointment: Lita Barkaat WPtel: [address] [place] [address] ACUTE ILLNESS 12/21/2016 Patient Education: Patient Medication Summary Completed 12/21/2016 Appointment: Lita Barakat WPtel: [address] [place], [place] [phone] [place] CANCELED 12/18/2016 Visit Diagnosis Plan: Restless [...] : D64.9 12/14/2016 Appointment: Lita Barakat WPtel: [address] [place] [address] 12/13 confirmed ~sl WORK IN 12/14/2016 Appointment: Lita Barakat WPtel: [address] [place], [place] [phone] [place] CANCELED 12/14/2016 Patient Education: Patient Medication Summary Completed 12/14/2016 Appointment: Lita Barakat WPtel: [address] [place], [place] [phone] [place] LAB 12/12/2016 Patient Education: Patient Medication Summary Completed 12/12/2016 Appointment: Lita Barakat WPtel: [address] [place], [place] [phone] in ER this weekend--called for reports Consult 12/11/2016 Appointment: Lita Barakat WPtel: [address] [place], [place] [address] [place] CANCELED 12/04/2016 Visit Diagnosis Plan: Pneumonia, [...] ICD-10 : G25.81 11/14/2016 Appointment: Magda Toth [address] [place], [place] [id number] MEDICATION REVIEW 11/14/2016 Patient Education: Patient Medication Summary Completed 11/14/2016 Appointment: Lita Barakattel: [address] [place], [place] [phone] [place] RESCHEDULED 11/02/2016 Visit Diagnosis Plan: Candidal stomatitis Discussion: Diflucan and Nystatin Hold atorvastatin while taking diflucan ICD-9 : 112.0 ICD-10 : B37.0 10/31/2016 Appointment: Lita Barakat WPtel: [address] [place], [place] [phone] ACUTE ILLNESS 10/31/2016 Patient Education: Patient Medication Summary Completed 10/31/2016 Appointment: Lita Barakat WPtel: [address] [place], [place] [phone] [place] Consult 10/23/2016 Appointment: Lita Barakat WPtel: [address] [place], [place] [phone] [place] CANCELED 10/18/2016 Visit Plan: Rx as above Wear O2 at all t imes as instructed by Dr Chacon Continue breathing treatments Supportive care otherwise reviewed Follow up ingrid if not improving 10/03/2016 Appointment: Lita Barakat WPtel: [address] [place], [place] [phone] [place] CANCELED 10/03/2016 Appointment: Magda Toth [address] [place] [address] ACUTE ILLNESS 10/03/2016 Patient Education: Patient Medication Summary Completed 10/03/2016 Visit Plan: Titrate requip to 1.5mg x 1 week Call if not helpful and will increase to 2mg qHS NO MORE nyquil at bedtime - discussed potential effects of decongestants on heart, oversedating himself, etc Will increase requip, then amitriptyline if needed to desired effect 09/04/2016 Appointment: Magda Toth [address] [place] [address] ACUTE ILLNESS 09/04/2016 Patient Education: Patient Medication Summary Completed 09/04/2016 Visit Plan: Stop requip and try elavil C ryotherapy as above See ENT for removal of right ear lesion 08/22/2016 Appointment: Lita Barakat WPtel: [address] [place] [address] ACUTE ILLNESS 08/22/2016 Patient Education: Patient Medication Summary Completed 08/22/2016 Visit Plan: Trial of requip 1mg q HS Res tart zoloft Recheck 1month 08/10/2016 Appointment: Lita Barakat WPtel: [address] [place] [address] ACUTE ILLNESS 08/10/2016 Patient Education: Patient Medication Summary Completed 08/10/2016 Visit Plan: Stop HCTZ Flagyl for diarrhe a Hydrate Discussed meds for restless legs Zofran prn Nausea 07/06/2016 Appointment: Lita Barakat WPtel: [address] [place] [address] 07/05 confirmed~sl Hospital Follow Up 07/06/2016 Patient Education: Patient Medication Summary Completed 07/06/2016 Visit Plan: Reviewed with Dr Yuval Palacios sidering his recent history, instructed him to go straight to the ER called to notify her so she can meet him there 06/22/2016 Appointment: Magda Toth [address] [place], [place] [id number] ACUTE ILLNESS 06/22/2016 Patient Education: Patient Medication Summary Completed 06/22/2016 Visit Plan: Continue current meds Prevna r 13 and High Dose Flu given 06/13/2016 Appointment: Lita Barakat WPtel: [address] [place] [address] 06/13 confirmed~ WORK IN 06/13/2016 Patient Education: Patient Medication Summary Completed 06/13/2016 Appointment: Lita Barakat WPtel: [address] [place] [address] just went over current medications CANCELED 06/08/2016 Visit Plan: Reviewed POC with Dr Barakat Stat cbc, cmp, d dimer, troponin, bnp, ekg, cxr If any worsening of symptoms while awaiting results, patient instructed to go to ER or call 911 06/01/2016 Appointment: Magda Toth [address] [place], [place] [id number] ACUTE ILLNESS 06/01/2016 Patient Education: Patient Medication Summary Completed 06/01/2016 Referral: José Miguel Swanson WPtel: [address] [place] [address] 04/[address] swanson's office, patient is [...] and treatment 04/26/2016 Appointment: Magda Toth Lianna [facility] ACUTE ILLNESS 04/26/2016 Patient Education: Patient Medication Summary Completed 04/26/2016 Care Plan: Referral Order SNOMED-CT : 30 1212328 Pending 04/26/2016 Visit Plan: Left ear flushed after conse nt with warm water with peroxide with ear syringe Patient tolerated well Ear exam is wnl following flushing Follow up PRN 04/05/2016 Appointment: Magda Toth [address] [place], [place] [id number] ACUTE ILLNESS 04/05/2016 Patient Education: Patient Medication Summary Completed 04/05/2016 Visit Plan: Increase Levemir to 25u sc d aily Increase sertraline to 2 full tablets daily--200mg Debrox or cerumenex to bilateral ears q HS for 3 nights then flush or fwup for fushing Check lab in 2mos then fwup 04/03/2016 Appointment: Lita Barakat WPtel: [address] [place], [place] [phone] 03/31 7 lm ~sl FOLLOW UP 04/03/2016 Patient Education: Patient Medication Summary Completed 04/03/2016 Visit Plan: Patient informed of correct dosage of levemir and how to administer. Patient verbalizes understanding and will call if any questions/concerns. 10 Units of Levemir given in office SC to right lower abdom en. Patient tolerated well. Site without redness/irritation. 03/13/2016 Appointment: Lita Barakat WPtel: [address] [place], [place] [phone] SPECIAL 03/13/2016 Patient Education: Patient Medication Summary Completed 03/13/2016 Appointment: Lita Barakat WPtel: [address] [place], [place] [phone] LAB 03/06/2016 Patient Education: Patient Medication Summary Completed 03/06/2016 Visit Plan: Patient saw Dr. Chacon this week and was given prednisone taper for COPD Continue current meds Accuchecks daily Patient will return on Sunday morning for fasting lab incuding CBC, CMP, TSH, free T4, HbA1C, Lipids, Testosterone, PSA 03/02/2016 Appointment: Lita Barakat WPtel: [address] [place], [place] [phone] 03/01 confirmed ~sl FOLLOW UP 03/02/2016 Patient [...] how doing 02/17/2016 Appointment: Lita Barakat WPtel: [address] [place] [address] WORK IN 02/17/2016 Patient Education: Patient Medication Summary Completed 02/17/2016 Visit Plan: Xrays to further evaluate Alvarez spect heel spur(s) Will call with results Has had injections in the past that were helpful Dr Barakat can do them or can refer to podiatry if warranted 02/14/2016 Appointment: Magda Toth [address] [place] [address] ACUTE ILLNESS 02/14/2016 Patient Education: Patient Medication Summary Completed 02/14/2016 Visit Plan: Increase Zoloft to 150mg cooper ly 01/31/2016 Appointment: Lita Barakat WPtel: [address] [place] [address] 01/26 confirmed `sl FOLLOW UP 01/31/2016 Patient Education: Patient Medication Summary Completed 01/31/2016 Visit Plan: Decrease citalopram to 20mg q AM for 1 week then stop Start zoloft 50mg q HS for 1 week then increase to 100mg q HS 12/30/2015 Appointment: Lita Barakat WPtel: [address] [place], [place] [id number] 12/28 confirmed~sl ACUTE ILLNESS 12/30/2015 Patient Education: Patient Medication Summary Completed 12/30/2015 Visit Plan: Check Neck US 12/16/2015 Appointment: Lita Barakat WPtel: [address] [place], [place] [phone] 12/14 lm ~sl 12/15 confirmed-sp FOLLOW UP 12/16/2015 Patient Education: Patient Medication Summary Completed 12/16/2015 Care Plan: US EXAM OF HEAD AND NECK LOIN C : 88027-6 Ordered 12/16/2015 Appointment: Stephanie Rios WPtel: [address] [place], [place] [phone] [place] 12/09 confirmed-sp 12/12 lm ~sl Patient [...] PO TID 12/06/2015 Appointment: Stephanie Rios WPtel: [address] [place], [place] [address] ACUTE ILLNESS 12/06/2015 Patient Education: Patient Medication Summary Completed 12/06/2015 Referral: Lisbeth Darby WPtel: [facility] [address] 11/18/15 called luther at [place] office and confirmed time and date of appointment with patient~sl Initiated 11/18/2015 Visit Plan: Referral to Dermatology for removal of facial skin lesions Cefdinir PO bid Topical Mupirocin to skin lesions bid 11/15/2015 Appointment: Stephanie Rios WPtel: [address] [place], [place] [phone] ACUTE ILLNESS 11/15/2015 Patient Education: Patient Medication Summary Completed 11/15/2015 Visit Plan: Continue current meds Accuch ecks daily Fwup with ophthamology as scheduled Will check lab in 3mos then fwup due to recent meds that will affect blood sugar 10/05/2015 Appointment: Lita Barakat WPtel: [address] [place], [place] [phone] 10/04/15 appt confirmed cn Annual Well Visit 08/2016 Patient Education: Patient Medication Summary Completed 10/05/2015 Visit Plan: Alexis -1 sample box given Return visit in 6 weeks for fasting labs Notify for worsening symptoms such as Increased redness, swelling, pain or drainage of Rt. knee 07/22/2015 Appointment: [facility] [facility] 07/21 vm left cn FOLLOW UP 07/22/2015 Patient Education: Patient Medication Summary Completed 07/22/2015 Visit Plan: Continue to change dressing twice daily and apply Mupirocin Complete Doxycycline as directed. Follow-up for worsening symptoms, such as increased swelling, redness or pain. 07/01/2015 Appointment: Stephanie Rios WPtel: [address] [facility] FOLLOW UP 07/01/2015 Patient Education: Patient Medication Summary Completed 07/01/2015 Visit Plan: Pressure dressing applied to draining wound left knee. Instructed to change dressing twice daily and continue Mupirocin topical Doxycycline PO bid x 10 days Wound culture obtained. Wound tissue sent to pathology Follow-up in 3 days 06/28/2015 Appointment: Stephanie Rios WPtel: [address] [place], [place] [phone] ACUTE ILLNESS 06/28/2015 Patient Education: Patient Medication Summary Completed 06/28/2015 Visit Plan: Complete antibiotics Follow- up for increased tenderness, swelling or drainage. 06/09/2015 Appointment: Stephanie Rios WPtel: [address] [place], [place] [address] 06/08/15 lm FOLLOW UP 06/09/2015 Patient Education: Patient Medication Summary Completed 06/09/2015 Visit Plan: Apply pressure dressing toda y Continue antibiotics and topical Mupirocin Follow-up in 2 days Bursa drained from open area using pressure--serosanguinous drainage 06/07/2015 Appointment: Stephanie Rios WPtel: [facility] 06/04/15 confirmed with patient FOLLOW UP 0 06/07/2015 Patient Education: Patient Medication Summary Completed 06/07/2015 Visit Plan: Wound culture Lt. knee Apply mupirocin to open wound bid Clindamycin 600 mg PO bid x 10 days Follow-up on Sunday06/03/2015 Appointment: Stephanie Rios WPtel: [address] [place], [place] [phone] ACUTE ILLNESS 06/03/2015 Patient Education: Patient Medication Summary Completed 06/03/2015 Visit Plan: Accuchecks daily Check CMP, HbA1C today Patient is noncompliant with meds and diet but patient says he is doing everything he is supposed to do Wants to try performomist instead of albuterol in SVN 06/01/2015 Appointment: Lita Barakat WPtel: [address] [place], [place] [phone] 05/28 appt confirmed cn FOLLOW UP 06/01/20 15 Patient Education: Patient Medication Summary Completed 06/01/2015 Visit Plan: Change Breo Ellipta to Advai r 500/50 1 p BID this next month Continue turdoza Use albuterol prn Check CMP, HbA1C today Accuchecks daily Cryotherapy as above 02/25/2015 Appointment: Lita Barakat WPtel: [address] [place], [place] [phone] 02/24 appt confirmed and explained needed payment he said ok FOLLOW UP 02/25/2015 Patient Education: Patient Medication Summary Completed 02/25/2015 Referral: Lopez Chacon [address] [facility] C&D [id number] Will put patient on cancellation list Initiated 12/08/2014 Appointment: Lita Barakat WPtel: [address] [place], [place] [phone] Hospital Follow Up 10/29/2014 Visit Plan: Finish prednisone Continue S VNs with albuterol QID See pulmonology and start Pulmonary rehab Once again discussed taking it easy this winter--that he is high risk for exacerbation 10/27/2014 Appointment: Lita Barakat WPtel: [address] [place], [place] [phone] FOLLOW UP 10/27/2014 Patient Education: Patient Medication Summary Completed 10/27/2014 Appointment: Lita Barakat WPtel: [address] [place] [address] FOLLOW UP 10/26/2014 Appointment: Stephanie Rios WPtel: [address] [place], [place] [id number] WORK IN 10/21/2014 Patient Education: Patient Medication Summary Completed 10/21/2014 Patient Education: Patient Medication Summary Completed 10/19/2014 Visit Plan: Continue oxygen and SVNS wit h duoneb Increase farxiga to 10mg daily Diflucan 100mg daily for 1week 10/06/2014 Appointment: Lita Barakat WPtel: [address] [place] [address] Moved appt time to 2:45pm FOLLOW UP 2014 Patient Education: Patient Medication Summary Completed 10/06/2014 Visit Plan: Finish omnicef Continue Breo BID and Turdoza Use SVNS with duoneb at least TID for next 2weeks then go to prn 09/21/2014 Appointment: Lita Barakat WPtel: [address] [place] [address] Follow Up 09/21/2014 Patient Education: Patient Medication Summary Completed 09/21/2014 Patient Education: [facility] - Saving Auto[employer] - Ventolin HFA - 18+ - Dynamic Portal ID Completed 09/21/2014 Appointment: Stephanie Rios WPtel: [address] [place], [place] [phone] Scheduled by 09/07 patient rescheduled to 09/08 with Stephanie. Hospital Follow Up 09/08/2014 Patient Education: Patient Medication Summary Completed 09/08/2014 Appointment: Stephanie Rios WPtel: [address] [place], [place] [phone] FOLLOW UP 09/02/2014 Patient Education: Patient Medication Summary Completed 09/02/2014 Patient Education: [employer] - Antibi otics, Analgesics 18+, Oral Contraceptives F 18+ Completed 09/02/2014 Appointment: Lita Barakat WPtel: [phone] [facility] UA 08/27/2014 Patient Education: Patient Medication [...] sleep 08/10/2014 Appointment: Lita Barakat WPtel: [address] [place], [place] [phone] Annual Well Visit 08/10/2014 Patient Education: Patient Medication Summary Completed 08/10/2014 Appointment: Lita Barakat WPtel: [address] [place], [place] [phone] LAB 08/05/2014 Patient Education: Patient Medication Summary Completed 08/05/2014 Visit Plan: ECHO results reviewed Contin ue Breo and Turdoza Pt starts PT this afternoon for back--has had one epidural with no help in pain 05/05/2014 Appointment: Lita Barakat WPtel: [address] [place], [place] [phone] FOLLOW UP 05/05/2014 Patient Education: Patient Medication Summary Completed 05/05/2014 Visit Plan: Continue Breo and Turdoza Camargo s heart tests scheduled next week Will see surgeon for removal of skin cancer to neck after done with cardiac workup 03/24/2014 Appointment: Lita Barakat WPtel: [address] [place], [place] [phone] [place] FOLLOW UP 03/24/2014 Patient Education: Patient Medication Summary Completed 03/24/2014 Visit Plan: Proceed with cardiology eval uation as patient is has numerous risk factors for CAD Change Symbicort to Breo 1p BID and add Turdorza 1p BID Recheck in weeks Check 2-D ECHO and lexiscan 03/10/2014 Appointment: Lita Barakat WPtel: [address] [place], [place] [phone] FOLLOW UP 03/10/2014 Patient Education: Patient Medication Summary Completed 03/10/2014 Visit Plan: Shoulder injection as above Back brace to use when doing any lifting for stability 12/16/2013 Appointment: Lita Barakat WPtel: [address] [place] [address] ACUTE ILLNESS 12/16/2013 Patient Education: Patient Medication Summary Completed 12/16/2013 Visit Plan: Continue symbicort and Turdo za Salt water gargles Omnicef 300mg 2 po daily for 1wk Phenergan with codeine 10/09/2013 Appointment: Lita Barakat WPtel: [address] [place], [place] [id number] WORK IN 10/09/2013 Patient Education: Patient Medication Summary Completed 10/09/2013 Appointment: Ruchi Buchanan WPtel: [address] [place], [place] [phone] ACUTE ILLNESS 09/18/2013 Patient Education: Patient Medication Summary Completed 09/18/2013 Visit Plan: Check on repeat CXR Finish a bx Start Tradjenta to replace metformin 08/13/2013 Appointment: Lita Barakat WPtel: [address] [place], [place] [phone] 08/12 Hospital Follow Up 08/13/2013 Patient Education: Patient Medication Summary Completed 08/13/2013 Visit Plan: Admit to hospital 08/06/2013 Appointment: Stephanie Rios WPtel: [address] [place], [place] [phone] ACUTE ILLNESS 08/06/2013 Patient Education: Patient Medication Summary Completed 08/06/2013 Visit Plan: Continue current meds Contin ue accuchecks daily Proceed with stress test due to high risk for CAD 07/16/2013 Appointment: Lita Barakat WPtel: [address] [place], [place] [phone] FOLLOW UP 07/16/2013 Patient Education: Patient Medication Summary Completed 07/16/2013 Appointment: Lita Barakat WPtel: [address] [place] [address] LAB 06/25/2013 Patient Education: Patient Medication Summary Completed 06/25/2013 Visit Plan: prednisone and azithromycin. Doing CBC and mycoplasma blood draw. Will continue inhaler and albuterol breathing treatments. 04/09/2013 Appointment: Kimberly Villalba WPtel: [address] [place] [address] ACUTE ILLNESS 04/09/2013 Patient Education: Patient Medication Summary Completed 04/09/2013 Appointment: Lita Barakat WPtel: [address] [place] [address] ACUTE ILLNESS 02/11/2013 Patient Education: Patient Medication Summary Completed 02/11/2013 Appointment: Ruchi Buchanan WPtel: [address] [place] [address] ACUTE ILLNESS 01/31/2013 Patient Education: Patient Medication Summary Completed 01/31/2013 Visit Plan: Cefdinir and medrol dose pac k. Codeine/guiaf cough syrup. Has colonoscopy on Sunday. Pt. is to notify if fever occurs or symptoms worsen. Hydration and rest. 01/20/2013 Appointment: Kimberly Villalba WPtel: [address] [place] [address] ACUTE ILLNESS 01/20/2013 Patient Education: Patient Medication Summary Completed 01/20/2013 Visit Plan: Scopalamine patch and vestib ular exercises 12/19/2012 Appointment: Lita Barakat WPtel: [address] [place] [address] ACUTE ILLNESS 12/19/2012 Patient Education: Patient Medication Summary Completed 12/19/2012 Visit Plan: Dr. Swanson consult if no impr ovement in hearing. Pt. reports he will notify if no better in one week. Willam consult for skin lesion. 10/21/2012 Appointment: Kimberly Villalba WPtel: [address] [place], [place] [phone] ACUTE ILLNESS 10/21/2012 Patient Education: Patient Medication Summary Completed 10/21/2012 Appointment: Lita Barakat WPtel: [address] [place], [place] [phone] [place] LAB 09/19/2012 Patient Education: Patient Medication Summary Completed 09/19/2012 Visit Plan: Check fasting lab in AM--CMP , Lipids, HbA1C 09/18/2012 Appointment: Lita Barakat WPtel: [address] [place] [address] FOLLOW UP 09/18/2012 Patient Education: Patient Medication Summary Completed 09/18/2012 Appointment: Lita Barakat WPtel: [address] [place] [address] appt time scheduled sooner FOLLOW UP 09/05 Visit Plan: Doxycycline and Prednisone I ncrease SVN to QID Add back Symbicort 160/4.5 2 p BID 08/28/2012 Appointment: Lita Barakat WPtel: [address] [place] [address] FOLLOW UP 08/28/2012 Patient Education: Patient Medication Summary Completed 08/28/2012 Appointment: Lita Barakat WPtel: [address] [place], [place] [phone] Annual Well Visit 07/10/2012 Patient Education: Patient Medication Summary Completed 07/10/2012 Visit Plan: Finish Z-pack Add Nasonex Ad d Meclizine Vestibular exercises Continue current meds and accuchecks Check lab and fwup in 4mos 05/09/2012 Appointment: Lita Barakat WPtel: [address] [place], [place] [phone] number no longer works FOLLOW UP 2 Patient Education: Patient Medication Summary Completed 05/09/2012 Appointment: Lita Barakat WPtel: [address] [place], [place] [id number] [place] LAB 05/06/2012 Patient Education: Patient Medication Summary Completed 05/06/2012 Appointment: Lita Barakat WPtel: [address] [place], [place] [id number] [place] LAB 05/02/2012 Appointment: Lita Barakat WPtel: [address] [place], [place] [phone] [place] INJECTION 02/05/2012 Patient Education: Patient Medication Summary Completed 02/05/2012 Visit Plan: cefdinir. Will focus on rest and fluids. Pt. reports he is using breathing treatments as needed. Pt. will monitor for worsening symptoms or fever. 10/02/2011 Appointment: Kimberly Villalba WPtel: [address] [place], [place] [phone] ACUTE ILLNESS 10/02/2011 Patient Education: Patient Medication Summary Completed 10/02/2011 Appointment: Lita Barakat WPtel: [address] [place], [place] [id number] [place] INJECTION 08/10/2011 Patient Education: Patient Medication Summary Completed 08/10/2011 Visit Plan: Continue current meds Restar t Advair Restart exercise Flu shot given 08/07/2011 Appointment: Lita Barakat WPtel: [address] [place], [place] [id number] FOLLOW UP 08/07/2011 Patient Education: Patient Medication Summary Completed 08/07/2011 Appointment: Lita Barakat WPtel: [address] [place], [place] [id number] [place] LAB 07/26/2011 Patient Education: Patient Medication Summary Completed 07/26/2011 Visit Plan: ALEKSANDER Carmen Continue Metformin but change to BID Add Lantus 25u sc q PM BS readings in 1wk 04/03/2011 Appointment: Lita Barakat WPtel: [address] [place], [place] [phone] ACUTE ILLNESS 04/03/2011 Patient Education: Patient Medication Summary Completed 04/03/2011 Appointment: Lita Barakat WPtel: [address] [place], [place] [phone] [place] INJECTION 01/19/2011 Patient Education: Patient Medication Summary Completed 01/19/2011 Appointment: Lita Barakat WPtel: [address] [place], [place] [id number] ACUTE ILLNESS 01/18/2011 Patient Education: Patient Medication Summary Completed 01/18/2011 Appointment: Lita Barakat WPtel: [address] [place], [place] [phone] [place] INJECTION 12/21/2010 Patient Education: Patient Medication Summary Completed 12/21/2010 Appointment: Lita Barakat WPtel: [address] [place], [place] [id number] FOLLOW UP 12/19/2010 Patient Education: Patient Medication Summary Completed 12/19/2010 Appointment: Lita Barakat WPtel: [address] [place], [place] [phone] [place] LAB 12/07/2010 Patient Education: Patient Medication Summary Completed 12/07/2010 Appointment: Kimberly Villalba WPtel: [address] [place], [place] [phone] ACUTE ILLNESS 04/05/2010 Patient Education: Patient Medication Summary Completed 04/05/2010 Appointment: Lita Barakat WPtel: [address] [place], [place] [phone] [place] WORK IN 03/14/2010 Patient Education: Patient Medication Summary Completed 03/14/2010 Appointment: Lita Barakat WPtel: [address] [place], [place] [phone] [place] LAB 03/02/2010 Visit Plan: HbA1C in 3mos. Continue Accu checks BID alternating times. Switch lexapro to celexa 01/13/2010 Appointment: Lita Barakat WPtel: [address] [place], [place] [phone] FOLLOW UP 01/13/2010 Patient Education: Patient Medication Summary Completed 01/13/2010 Appointment: Lita Barakat WPtel: [address] [place], [place] [phone] FOLLOW UP 01/11/2010 Visit Plan: Pt. will continue the Avalox and Doxycycline regimen as prescribed the previous day. He has been advised to continue inhalers, breathing treatments and oxygen therapy for at least the weekend. Moderate activity without strenuous exercise. The pt. will seek immediate re-eval if his symptoms worsen. 12/23/2009 Appointment: Kimberly Villalba WPtel: [address] [place] [address] FOLLOW UP 12/23/2009 Patient Education: Patient Medication [...] tomorrow morning. 12/22/2009 Appointment: Kimberly Villalba WPtel: [address] [place], [place] [phone] ACUTE ILLNESS 12/22/2009 Patient Education: Patient Medication Summary Completed 12/22/2009 Appointment: Kimberly Villalba WPtel: [address] [place] [address] [place] FOLLOW UP 12/21/2009 Appointment: Lita Barakat WPtel: [address] [place], [place] [phone] [place] INJECTION 12/16/2009 Patient Education: Patient Medication Summary Completed 12/16/2009 Appointment: Kimberly Villalba WPtel: [phone] [id number] ACUTE ILLNESS 12/13/2009 Patient Education: Patient Medication Summary Completed 12/13/2009 Care Plan: X-RAY EXAM OF SHOULDER lt shoulder (pain ra diates across the shoulder) Hand carried orders to [facility] LOINC : 08084-9 Ordered 12/13/2009 Care Plan: X-RAY EXAM THORAC SPINE 2VWS Hand carried order LOINC : 55229-4 Ordered 12/13/2009 Care Plan: X-RAY EXAM RIBS UNI 2 VIEWS Posterior ribs of lt. side Pt. hand carries order to [facility] LOINC : 71005-1 Ordered 12/13/2009 Referral: José Miguel Swanson WPtel: [address] [address] [place] Referral Appointment Requested Referral: José Miguel Swanson WPtel: [address] [address] [place] Referral Appointment Requested Referral: Chandu Quarles WPtel: [address] Quarles for screening colonoscopy. P atient notified that [facility] office will book appt with him Initiated Referral: Santosh Machado WPtel: [address] [facility] [place] Referral Appointment Requested Referral: José Miguel Swanson WPtel: [address] [address] [place] Referral Initiated Referral: Lopez Chacon [address] [facility] C&D [id number] [place] Referral Initiated Referral: Demetrius Benjamin WPtel: [address] [address] [place] Referral Appointment Requested Referral: José Miguel Swanson WPtel: [address] [address] [place] Referral Appointment Requested Referral: José Miguel Swanson WPtel: [address] [address] [place] Referral Initiated Instructions Comment . Saline nasal flushes prn. Tylenol/Motr in prn headache. Notify if persists/symptoms worsening. . MRI at [facility] Hydrocodone 5.325 1 po q 4-6 [...]
--- OUTSIDE RECORDS SUMMARY | 2020-03-28 16:06 | XMS REPORT | CCD ---
Author Author Leandro Barakat D.O. 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] R07.9 06/22/2016 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: [...] Fill Instructions losartan 100 mg tablet RxNorm: 915573 1TD 02/03/2020 05/02/2020 Active Sinemet CR 50 mg-200 mg tablet,extended release RxNorm: 8343 41 1 Tablet(s) Oral three times a day 02/02/2020 07/31/2020 Active Generic For:*S INEMET CR 50/200 TABLET SA 07/08/2018 3:09:11 PM hydrocodone 10 mg-acetaminophen 325 mg tablet RxNorm: 249559 1 Tablet(s) Oral Q4H as needed for pain 01/29/2020 No Stop Date Active ipratropium 0.5 mg-albuterol 3 mg (2.5 mg base)/3 mL n ebulization soln RxNorm: 6269186 USE 1 VIAL IN NEBULIZER Q4H (THIS REPLACES ALBUTEROL S OLUTION) 01/08/2020 02/06/2020 Active prednisone 20 mg tablet RxNorm: 116313 1 Tablet(s) Oral two remy es a day 12/25/2019 01/01/2020 Inactive Levemir FlexTouch U-100 Insulin 100 unit/mL (3 mL) sub cutaneous pen RxNorm: 778627 10 Unit(s) Subcutaneous every night at bedtime 12/22/2019 N o Stop Date Active baclofen 10 mg tablet RxNorm: 711116 1 Tablet(s) Oral QPM for p ain/spasm 12/22/2019 01/21/2020 Inactive ipratropium 0.5 mg-albuterol 3 mg (2.5 mg base)/3 mL n ebulization soln RxNorm: 7987039 USE 1 VIAL IN NEBULIZER Q4H (THIS REPLACES ALBUTEROL S OLUTION) 11/27/2019 12/16/2019 Inactive hydrocodone 10 mg-acetaminophen 325 mg tablet RxNorm: 826766 1 Tablet(s) Oral Q4H as needed for pain 11/13/2019 01/28/2020 Inactive Seroquel 50 mg tablet RxNorm: 510835 1 Tablet(s) Oral QPM as ne eded for sleep 10/07/2019 12/21/2019 Inactive ropinirole 4 mg tablet RxNorm: 626401 3 TABLET(S) BY [facility] DAILY AT BEDTIME FOR RESTLESS LEGS 09/29/2019 12/27/2019 Inactive Generic For:REQU IP 4 MG TABLET 09/29/2019 7:52:42 AM N O T I C E Last quantity doesn't match original quantity ropinirole 4 mg tablet RxNorm: 597236 3 TABLET(S) BY [facility] DAILY AT BEDTIME FOR RESTLESS LEGS 09/26/2019 09/28/2019 Inactive Generic For:REQU IP 4 MG TABLET 09/26/2019 9:08:48 AM N O T I C E Last quantity doesn't match original quantity ipratropium 0.5 mg-albuterol 3 mg (2.5 mg base)/3 mL n ebulization soln RxNorm: 5489303 USE 1 VIAL IN NEBULIZER EVERY FOUR HOURS (THIS REPLACES ALBUTEROL SOLUTION) 09/26/2019 10/15/2019 Inactive Generic For:*DUO NEB 2.5-0.5 MG/3 ML SOLN 09/26/2019 9:08:53 AM hydrocodone 10 mg-acetaminophen 325 mg tablet RxNorm: 623123 1 Tablet(s) Oral Q4H as needed for pain 09/09/2019 09/09/2019 Inactive hydrocodone 10 mg-acetaminophen 325 mg tablet RxNorm: 838804 1 Tablet(s) Oral Q4H as needed for pain 09/09/2019 09/08/2019 Inactive ondansetron HCl 4 mg tablet RxNorm: 473045 1 Tablet(s) Oral QPM for nausea 08/12/2019 10/10/2019 Inactive ipratropium 0.5 mg-albuterol 3 mg (2.5 mg base)/3 mL n ebulization soln RxNorm: 5348620 1 Unit Dose INH Q4H 08/12/2019 09/25/2019 Inactive replaces albuterol solution Augmentin 875 mg-125 mg tablet RxNorm: 234257 1 Tablet(s) Oral two times a day 08/07/2019 08/17/2019 Inactive prednisone 20 mg tablet RxNorm: 582003 1 Tablet(s) Oral QD 08/05/2008/04/2019 Inactive prednisone 20 mg tablet RxNorm: 371685 1 Tablet(s) Oral QD 08/05/2008/06/2019 Inactive Levaquin 500 mg tablet RxNorm: 664613 1 Tablet(s) Oral QD Replaces azithromycin (z-pack) 07/31/2019 08/05/2019 Inactive Levaquin 500 mg tablet RxNorm: 389690 1 Tablet(s) Oral QD Replaces azithromycin (z-pack) 07/21/2019 07/26/2019 Inactive Levaquin 500 mg tablet RxNorm: 178967 1 Tablet(s) Oral QD Replaces azithromycin (z-pack) 07/21/2019 07/20/2019 Inactive Zithromax Z-Gui 250 mg tablet RxNorm: 977180 Tablet(s) Oral 07/22/2019 Inactive Zithromax Z-Gui 250 mg tablet RxNorm: 997517 Tablet(s) Oral 019 07/15/2019 Inactive Symbicort 160 mcg-4.5 mcg/actuation HFA aerosol inhaler RxNo rm: 9270007 2 Puff(s) Inhalation two times a day 07/14/2019 07/14/2019 Inactive Tessalon Perles 100 mg capsule RxNorm: 361257 1 Capsule(s) Oral Q8H as needed 07/14/2019 08/06/2019 Inactive Seroquel 50 mg tablet RxNorm: 243969 1 Tablet(s) Oral QPM as ne eded for sleep 07/01/2019 10/06/2019 Inactive ondansetron HCl 4 mg tablet RxNorm: 727826 1 Tablet(s) Oral QPM for nausea 06/24/2019 07/24/2019 Inactive Seroquel 25 mg tablet RxNorm: 527390 1 Tablet(s) Oral every nig ht at bedtime 06/19/2019 06/18/2019 Inactive Seroquel 25 mg tablet RxNorm: 259094 1 Tablet(s) Oral every nig ht at bedtime 06/19/2019 06/30/2019 Inactive trazodone 150 mg tablet RxNorm: 971550 1/2 Tablet(s) PO QHS as needed for sleep 06/11/2019 06/17/2019 Inactive replaces PA on doxep in trazodone 150 mg tablet RxNorm: 057566 1/2 Tablet(s) PO QHS as needed for sleep 05/12/2019 06/11/2019 Inactive replaces PA on doxep in Vitamin D3 5,000 unit tablet RxNorm: 919122 1 Tablet(s) PO QD 05/09 No Stop Date Active magnesium oxide 400 mg (241.3 mg magnesium) tablet RxNorm: 1 31865 1 Tablet(s) PO QHS 05/09/2019 No Stop Date Active cyanocobalamin (vit B-12) 1,000 mcg/mL injection solution Rx Norm: 096198 1 injection weekly for 4 weeks 1 Milliliter(s) Inj 05/09/2019 12/21/2019 Inactive ferrous sulfate 325 mg (65 mg iron) tablet RxNorm: 915952 1 Tab let(s) PO QD 05/09/2019 12/21/2019 Inactive ropinirole 4 mg tablet RxNorm: 180585 3 TABLET(S) BY [facility] DAILY AT BEDTIME FOR RESTLESS LEGS 03/26/2019 06/23/2019 Inactive Generic For:REQU IP 4 MG TABLET 03/26/2019 11:23:36 AM N O T I C E Last quantity doesn't match original quantity pantoprazole 40 mg tablet,delayed release RxNorm: 734385 Tablet(s) TAKE 1 TABLET BY MOUTH DAILY FOR STOMACH 03/24/2019 06/21/2019 Inactive Gener ic For:PROTONIX 40MG TAB EC 01/03/2019 1:23:44 PM hydroxyzine HCl 10 mg tablet RxNorm: 246556 1 Tablet(s) PO BID as needed 03/24/2019 04/06/2019 Inactive ipratropium-albuterol 0.5 mg-3 mg(2.5 mg base)/3 mL ne bulization soln RxNorm: 3845060 1 Unit Dose INH Q4H 03/21/2019 No Stop Date Active replaces albuterol solution meclizine 12.5 mg tablet RxNorm: 108538 1 Tablet(s) PO BID as neede d 03/21/2019 12/21/2019 Inactive losartan 100 mg tablet RxNorm: 250527 1 Tablet(s) PO QD replace s lisinopril 03/13/2019 09/08/2019 Inactive fluconazole 100 mg tablet RxNorm: 227717 1 Tablet(s) PO QD 03/13/20 19 03/19/2019 Inactive nystatin 100,000 unit/mL oral suspension RxNorm: 711848 5 Unit( s) PO QID 03/13/2019 03/26/2019 Inactive tramadol 50 mg tablet RxNorm: 726705 1 Tablet(s) PO TID as needed for pain TAKE 2 TABS OF EXTRA STRENGTH TYLENOL WITH EACH DOSE 03/10/2019 04/06/2019 Inactive Generic For:*ULTRAM 50 MG TABLET 01/15/2019 4:55:26 PM Sinemet CR 50 mg-200 mg tablet,extended release RxNorm: 8343 41 1 Tablet(s) PO TID 02/26/2019 08/24/2019 Inactive Generic For:*SIN EMET CR 50/200 TABLET SA 07/08/2018 3:09:11 PM trazodone 150 mg tablet RxNorm: 487797 1/2 Tablet(s) PO QHS as needed for sleep 02/13/2019 02/12/2019 Inactive trazodone 150 mg tablet RxNorm: 220643 1/2 Tablet(s) PO QHS as needed for sleep 02/13/2019 02/25/2019 Inactive replaces PA on doxep in doxepin 10 mg capsule RxNorm: 8669299 1-2 Capsule(s) PO QHS prn sleep 02/13/2019 02/13/2019 Inactive Novolog U-100 Insulin aspart 100 unit/mL subcutaneous soluti on RxNorm: 808434 INJECT 10 UNIT(S) SUBCUTANEOUSLY BEFORE MEALS 01/31/2019 05/30/2019 In active 01/31/2019 1:39:10 PM ipratropium-albuterol 0.5 mg-3 mg(2.5 mg base)/3 mL ne bulization soln RxNorm: 5642038 1 Unit Dose INH Q4H 01/17/2019 03/20/2019 Inactive replaces albuterol solution tramadol 50 mg tablet RxNorm: 010157 1 Tablet(s) PO TID as needed for pain TAKE 2 TABS OF EXTRA STRENGTH TYLENOL WITH EACH DOSE 01/15/2019 02/03/2019 Inactive Generic For:*ULTRAM 50 MG TABLET 01/15/2019 4:55:26 PM Sinemet CR 50 mg-200 mg tablet,extended release RxNorm: 8343 41 1 Tablet(s) PO BID 01/03/2019 02/25/2019 Inactive Generic For:*SIN EMET CR 50/200 TABLET SA 07/08/2018 3:09:11 PM losartan 100 mg tablet RxNorm: 810872 1 Tablet(s) PO QD replace s lisinopril 01/03/2019 03/12/2019 Inactive Symbicort 160 mcg-4.5 mcg/actuation HFA aerosol inhaler RxNo rm: 9450758 2 Puff(s) INH BID 01/03/2019 01/02/2019 Inactive pantoprazole 40 mg tablet,delayed release RxNorm: 849123 TAKE 1 TABLET BY MOUTH DAILY FOR STOMACH 01/03/2019 03/23/2019 Inactive Generic For:NE OTONIX 40MG TAB EC 01/03/2019 1:23:44 PM nystatin 100,000 unit/mL oral suspension RxNorm: 098632 Unit(s) 5 Unit(s) PO QID swish and spit 01/02/2019 11/11/2019 Inactive Incruse Ellipta 62.5 mcg/actuation powder for inhalation RxN orm: 3716378 1 Capsule(s) INH QD 12/25/2018 12/21/2019 Inactive Tessalon Perles 100 mg capsule RxNorm: 991056 1 Capsule(s) PO T ID for cough 12/25/2018 02/25/2019 Inactive Medrol (Gui) 4 mg tablets in a dose pack RxNorm: 003898 Tablet(s) PO Use as directed 12/23/2018 01/02/2019 Inactive Levemir FlexTouch U-100 Insulin 100 unit/mL (3 mL) sub cutaneous pen RxNorm: 554738 20 Unit(s) SQ QD with pen needles 12/13/2018 05/11/2019 Inactiv e prednisone 20 mg tablet RxNorm: 301020 1 Tablet(s) PO QD 12/12/2018 0 12/11/2018 Inactive prednisone 20 mg tablet RxNorm: 304225 1 Tablet(s) PO QD 12/12/2018 0 12/16/2018 Inactive promethazine 6.25 mg-codeine 10 mg/5 mL syrup RxNorm: 897173 5 Milliliter(s) PO QHS as needed for cough 12/09/2018 12/18/2018 Inactive cefdinir 300 mg capsule RxNorm: 096781 1 Capsule(s) PO BID 12/10/19 19 12/18/2018 Inactive fluconazole 100 mg tablet RxNorm: 380565 1 Tablet(s) PO QD 12/06/19 19 12/08/2018 Inactive ropinirole 4 mg tablet RxNorm: 841395 3 Tablet(s) PO QHS for re stless legs 12/04/2018 03/03/2019 Inactive Novolog U-100 Insulin aspart 100 unit/mL subcutaneous soluti on RxNorm: 512516 INJECT 10 UNIT(S) SUBCUTANEOUSLY BEFORE MEALS 12/04/2018 01/30/2019 In active 12/04/2018 10:02:42 AM nystatin 100,000 unit/mL oral suspension RxNorm: 168119 5 Unit(s) PO QID swish and spit 11/25/2018 12/18/2018 Inactive ropinirole 4 mg tablet RxNorm: 360843 3 Tablet(s) PO QHS for re stless legs 11/04/2018 12/03/2018 Inactive prednisone 20 mg tablet RxNorm: 861631 1 Tablet(s) PO BID 10/23/2018 10/29/2018 Inactive ropinirole 4 mg tablet RxNorm: 230834 3 Tablet(s) PO QHS for re stless legs 10/14/2018 11/04/2018 Inactive pantoprazole 40 mg tablet,delayed release RxNorm: 207426 1 Tablet(s) PO QD forstomach 10/10/2018 01/02/2019 Inactive Symbicort 160 mcg-4.5 mcg/actuation HFA aerosol inhaler RxNo rm: 2157216 2 Puff(s) INH BID 10/10/2018 01/03/2019 Inactive Novolog U-100 Insulin aspart 100 unit/mL subcutaneous soluti on RxNorm: 401518 INJECT 10 UNIT(S) SUBCUTANEOUSLY BEFORE MEALS 10/10/2018 12/03/2018 In active 10/10/2018 11:30:01 AM Sinemet CR 50 mg-200 mg tablet,extended release RxNorm: 8343 41 1 Tablet(s) PO BID 09/26/2018 01/03/2019 Inactive Generic For:*SIN EMET CR 50/200 TABLET SA 07/08/2018 3:09:11 PM ropinirole 4 mg tablet RxNorm: 418018 2 Tablet(s) PO QHS for re stless legs 09/18/2018 10/13/2018 Inactive metformin ER 1,000 mg tablet,extended release 24hr RxNorm: 1 983427 1 Tablet(s) PO BID 09/09/2018 12/18/2018 Inactive ropinirole 4 mg tablet RxNorm: 614219 2 Tablet(s) PO QHS for re stless legs 08/21/2018 09/17/2018 Inactive doxycycline hyclate 100 mg capsule RxNorm: 9511830 1 Capsule(s) PO BID 08/07/2018 08/13/2018 Inactive ropinirole 4 mg tablet RxNorm: 720431 1 Tablet(s) PO QHS replac es 1mg dose 08/07/2018 08/20/2018 Inactive ropinirole 2 mg tablet RxNorm: 876464 TAKE 3 TABLETS BY MOUTH DAILY AT BEDTIME DO NOT EXCEED 3 TABLETS PER DAY!!!! 07/31/2018 08/06/2018 Inactive Generic For:REQUIP 2 MG TABLET 07/30/2018 3:50:28 PM Symbicort 160 mcg-4.5 mcg/actuation HFA aerosol inhaler RxNo rm: 2010205 2 Puff(s) INH BID 07/12/2018 10/09/2018 Inactive Sinemet CR 50 mg-200 mg tablet,extended release RxNorm: 8343 41 TAKE 1 TABLET BY MOUTH TWICE DAILY 07/08/2018 09/26/2018 Inactive Generic For:*S INEMET CR 50/200 TABLET SA 07/08/2018 3:09:11 PM losartan 100 mg tablet RxNorm: 805096 1 Tablet(s) PO QD replace s lisinopril 06/17/2018 12/13/2018 Inactive Novolog U-100 Insulin aspart 100 unit/mL subcutaneous soluti on RxNorm: 903065 10 Unit(s) SQ AC 06/17/2018 10/09/2018 Inactive albuterol sulfate 2.5 mg/3 mL (0.083 %) solution for n ebulization RxNorm: 254702 Milliliter(s) INH USE 1 VIAL IN NEBULIZE R EVERY FOUR HOURS NEEDED FOR WHEEZING OR SHORTNESS OF BREATH 06/13/2018 01/16/2019 Inactive Generic For:*PROVENTIL 0.83 MG/ML SOLUTN 06/13/2013 2:04:46 PM ropinirole 2 mg tablet RxNorm: 596427 3 Tablet(s) PO QH S DO NOT EXCEED 6MG (3 TABLETS) PER DAY!!!! 06/13/2018 07/31/2018 Inactive atorvastatin 40 mg tablet RxNorm: 252265 Tablet(s) TAKE 1 TABLET BY MOUTH EVERY DAY 05/13/2018 12/18/2018 Inactive Generic For:LIPI TOR 40MG TAB 05/01/2018 8:37:31 AM Sinemet CR 50 mg-200 mg tablet,extended release RxNorm: 8343 41 1 Tablet(s) PO BID 05/08/2018 07/06/2018 Inactive Lidocaine Viscous 2 % mucosal solution RxNorm: 6640187 5 Milliliter(s) PO QID as needed 05/02/2018 08/06/2018 Inactive Diflucan 100 mg tablet RxNorm: 852077 1 Tablet(s) PO QD 05/02/2018 Inactive atorvastatin 40 mg tablet RxNorm: 073155 TAKE 1 TABLET BY MOUTH EVERY DAY 05/01/2018 05/13/2018 Inactive Generic For:LIPITOR 40MG TAB 05/01/2018 8:37:31 AM nystatin 100,000 unit/mL oral suspension RxNorm: 776614 5 Unit(s) PO QID (before meals and at bedtime) 04/24/2018 04/30/2018 Inactive Ventolin HFA 90 mcg/actuation aerosol inhaler RxNorm: 293941 2 Puff(s) INH Q4H as needed one inhaler for home and one inhaler for car 04/23/201812/18 Inactive Mucinex 600 mg tablet, extended release RxNorm: 157549 1 Tablet(s) PO BID for congestion 04/22/2018 05/21/2018 Inactive prednisone 10 mg tablet RxNorm: 525049 Tablet(s) PO as directeds 08/06/2018 Inactive ropinirole 2 mg tablet RxNorm: 595059 3 Tablet(s) PO QH S DO NOT EXCEED 6MG (3 TABLETS) PER DAY!!!! 04/09/2018 05/08/2018 Inactive gabapentin 300 mg capsule RxNorm: 097453 1-2 Capsule(s) PO QHS 02/201804/08/2018 Inactive ropinirole 2 mg tablet RxNorm: 482014 1 Tablet(s) PO QHS 03/28/2018 0 04/08/2018 Inactive gabapentin 300 mg capsule RxNorm: 943487 1-2 Capsule(s) PO QHS 02/2303/29/2018 Inactive gabapentin 300 mg capsule RxNorm: 935315 1-2 Capsule(s) PO QHS 02/2203/13/2018 Inactive gabapentin 300 mg capsule RxNorm: 720354 2 Capsule(s) PO QHS 201703/11/2018 Inactive ropinirole 2 mg tablet RxNorm: 903793 1 Tablet(s) PO QHS 02/28/2018 0 03/28/2018 Inactive ropinirole 2 mg tablet RxNorm: 935015 1 Tablet(s) PO QHS 02/28/2018 0 02/27/2018 Inactive gabapentin 300 mg capsule RxNorm: 014911 1 Capsule(s) PO QHS 201702/27/2018 Inactive pantoprazole 40 mg tablet,delayed release RxNorm: 784647 1 Tablet(s) PO QD forstomach 01/23/2018 05/22/2018 Inactive Voltaren 1 % topical gel RxNorm: 083361 1 Gram(s) TOP QID to ri ght knee 01/23/2018 02/04/2018 Inactive metformin ER 500 mg tablet,extended release 24hr RxNorm: 860 975 2 Tablet(s) PO BID 01/09/2018 12/08/2018 Inactive Requip 1 mg tablet RxNorm: 869367 1 Tablet(s) PO QHS 01/09/201802/27 Inactive prednisone 20 mg tablet RxNorm: 543847 1 Tablet(s) PO T ID for 3 days then 1 po BID for 3 days then one daily for 3 days 01/02/2018 02/03/2018 Inactiv e Levaquin 500 mg tablet RxNorm: 688128 1 Tablet(s) PO QD 01/02/2018 Inactive ProAir HFA 90 mcg/actuation aerosol inhaler RxNorm: 675295 2 Puff(s) INH Q4H as needed 12/28/2017 No Stop Date Active please switch to ventolin if insurance doesn't cover montelukast 10 mg tablet RxNorm: 572308 1 Tablet(s) PO QD 12/28/2017 02/03/2018 Inactive Levaquin 500 mg tablet RxNorm: 294460 1 Tablet(s) PO QD 12/21/2017 Inactive ProAir HFA 90 mcg/actuation aerosol inhaler RxNorm: 101055 2 Puff(s) INH Q4H as needed 12/21/2017 12/27/2017 Inactive please switch to ventolin if insurance doesn't cover doxycycline hyclate 100 mg tablet RxNorm: 593157 1 Tablet(s) PO BID 12/17/2017 12/26/2017 Inactive Levemir FlexTouch U-100 Insulin 100 unit/mL (3 mL) sub cutaneous pen RxNorm: 624627 20 Unit(s) SQ QD with pen needles---Due for labs 12/11/2017 02/03/2018 Inactive Requip 1 mg tablet RxNorm: 694027 1 Tablet(s) PO QHS 12/10/201712/09 Inactive Requip 1 mg tablet RxNorm: 517425 1 Tablet(s) PO QHS 12/10/201701/09 Inactive albuterol sulfate 2.5 mg/3 mL (0.083 %) solution for n ebulization RxNorm: 003367 Milliliter(s) INH USE 1 VIAL IN NEBULIZE R EVERY FOUR HOURS NEEDED FOR WHEEZING OR SHORTNESS OF BREATH 12/05/2017 06/13/2018 Inactive Generic For:*PROVENTIL 0.83 MG/ML SOLUTN 06/13/2013 2:04:46 PM Tudorza Pressair 400 mcg/actuation breath activated RxNorm: 0980821 1 Puff(s) INH BID 12/03/2017 12/10/2017 Inactive Levemir FlexTouch U-100 Insulin 100 unit/mL (3 mL) sub cutaneous pen RxNorm: 264467 10 Unit(s) SQ QD with pen needles---Due for labs 11/16/2017 12/10/2017 Inactive Zofran ODT 4 mg disintegrating tablet RxNorm: 304857 1 Tablet(s) PO Q4H as needed for nausea 10/17/2017 02/04/2018 Inactive Efudex 5 % topical cream RxNorm: 896377 Application TOP QD prn to precancer skin lesions 10/17/2017 02/03/2018 Inactive Sinemet CR 50 mg-200 mg tablet,extended release RxNorm: 8343 41 1 Tablet(s) PO BID 10/17/2017 02/05/2018 Inactive Sinemet CR 50 mg-200 mg tablet,extended release RxNorm: 8343 41 1 Tablet(s) PO QHS 09/25/2017 10/16/2017 Inactive gabapentin 600 mg tablet RxNorm: 692812 1 Tablet(s) PO BID 08/15/20 17 08/14/2017 Inactive gabapentin 600 mg tablet RxNorm: 362676 1 Tablet(s) PO BID 08/15/20 17 12/10/2017 Inactive Novolog U-100 Insulin aspart 100 unit/mL subcutaneous soluti on RxNorm: 033979 10 Unit(s) SQ AC 08/15/2017 02/03/2018 Inactive Novolog 100 unit/mL subcutaneous solution RxNorm: 763109 10 Uni t(s) SQ AC 08/13/2017 08/14/2017 Inactive prednisone 20 mg tablet RxNorm: 313483 2 Tablet(s) PO QD 08/02/2017 1 10/04/2016 Inactive gabapentin 600 mg tablet RxNorm: 055463 Tablet(s) 1 Tab let(s) PO QHS replaces 300mg dose 07/09/2017 08/14/2017 Inactive Breo Ellipta 100 mcg-25 mcg/dose powder for inhalation RxNor m: 2048005 1 Unit Dose INH QD 07/02/2017 08/30/2017 Inactive Tudorza Pressair 400 mcg/actuation breath activated RxNorm: 2957505 1 Puff(s) INH BID 06/18/2017 12/02/2017 Inactive gabapentin 600 mg tablet RxNorm: 927398 1 Tablet(s) PO QHS repl aces 300mg dose 06/14/2017 07/08/2017 Inactive metformin ER 1,000 mg tablet,extended release 24hr RxNorm: 1 067776 1 Tablet(s) PO BID 05/29/2017 01/08/2018 Inactive cyclobenzaprine 5 mg tablet RxNorm: 584273 1 Tablet(s) PO TID 05/2906/07/2017 Inactive metformin ER 1,000 mg tablet,extended release 24hr RxNorm: 8 01437 1 Tablet(s) PO BID 05/25/2017 05/28/2017 Inactive metformin ER 1,000 mg tablet,extended release 24hr RxNorm: 8 17339 1 Tablet(s) PO BID 05/22/2017 05/24/2017 Inactive Amaryl 2 mg tablet RxNorm: 337170 1 Tablet(s) PO BID 05/01/201702/03 Inactive glimepiride 2 mg tablet RxNorm: 366233 1 Tablet(s) PO BID 04/19/2017 02/03/2018 Inactive ferrous sulfate 325 mg (65 mg iron) tablet RxNorm: 005614 1 Tab let(s) PO QHS 04/17/2017 02/03/2018 Inactive Requip 4 mg tablet RxNorm: 995295 1 Tablet(s) PO BID 04/12/201704/11 Inactive Requip 4 mg tablet RxNorm: 803285 1 Tablet(s) PO BID 04/12/201704/15 Inactive Levemir FlexTouch 100 unit/mL (3 mL) subcutaneous insulin pe n RxNorm: 627370 10 Unit(s) SQ QD with pen needles---Due for labs 04/05/2017 11/15/2017 In active Silenor 3 mg tablet RxNorm: 930424 1 Tablet(s) PO QHS 04/05/201709/25 Inactive ropinirole 4 mg tablet RxNorm: 643835 1 Tablet(s) PO QHS 03/29/2017 0 04/01/2017 Inactive ropinirole 4 mg tablet RxNorm: 591968 1 Tablet(s) PO QHS 03/29/2017 0 03/28/2017 Inactive Requip 4 mg tablet RxNorm: 110545 1 Tablet(s) PO QHS 03/28/201704/01 Inactive gabapentin 600 mg tablet RxNorm: 145268 1 Tablet(s) PO QHS repl aces 300mg dose 03/28/2017 04/15/2017 Inactive Requip 4 mg tablet RxNorm: 547056 1 Tablet(s) PO QHS 03/23/201703/27 Inactive gabapentin 600 mg tablet RxNorm: 239363 1 Tablet(s) PO QHS 03/13/20 17 03/12/2017 Inactive gabapentin 600 mg tablet RxNorm: 383052 1 Tablet(s) PO QHS 03/13/20 17 03/27/2017 Inactive gabapentin 300 mg capsule RxNorm: 026518 1 Capsule(s) PO QPM 201603/12/2017 Inactive Generic For:NEURONTIN 300 MG CAPSULE 01/22/2017 10:10:39 AM losartan 100 mg tablet RxNorm: 627643 1 Tablet(s) PO QD replace s lisinopril 02/21/2017 06/17/2018 Inactive gabapentin 300 mg capsule RxNorm: 677452 TAKE 1 CAPSULE BY MOUT H EVERY EVENING 01/22/2017 02/21/2017 Inactive Generic For:NEURONTI N 300 MG CAPSULE 01/22/2017 10:10:39 AM gabapentin 300 mg capsule RxNorm: 516784 1 Capsule(s) PO QPM 201601/21/2017 Inactive Requip 4 mg tablet RxNorm: 373598 1 Tablet(s) PO QHS 12/21/201603/20 Inactive Effient 10 mg tablet RxNorm: 322760 1 Tablet(s) PO QD 12/12/201612/23 Inactive gabapentin 300 mg capsule RxNorm: 478975 1 Capsule(s) PO QPM 201612/03/2016 Inactive gabapentin 300 mg capsule RxNorm: 944533 1 Capsule(s) PO QPM 201612/13/2016 Inactive Requip 4 mg tablet RxNorm: 475367 1 Tablet(s) PO QHS 11/28/201612/21 Inactive atorvastatin 40 mg tablet RxNorm: 342895 Tablet(s) 1 Tablet(s) PO Q D 11/22/2016 08/18/2017 Inactive atorvastatin 40 mg tablet RxNorm: 697723 1 Tablet(s) PO QD 11/23/1911/21/2016 Inactive ropinirole 1 mg tablet RxNorm: 703313 2.5 Tablet(s) PO QPM for legs/sleep 11/14/2016 11/27/2016 Inactive nystatin 100,000 unit/mL oral suspension RxNorm: 998110 5 Unit(s) PO QID swish and spit 10/31/2016 02/03/2018 Inactive fluconazole 100 mg tablet RxNorm: 911080 1 Tablet(s) PO QD 10/31/19 17 11/09/2016 Inactive doxycycline hyclate 100 mg capsule RxNorm: 5414488 1 Capsule(s) PO BID 10/03/2016 10/12/2016 Inactive Levemir FlexTouch 100 unit/mL (3 mL) subcutaneous insulin pe n RxNorm: 257803 10 Unit(s) SQ QD with pen needles 09/18/2016 04/04/2017 Inactive amitriptyline 25 mg tablet RxNorm: 447891 1 Tablet(s) P O QHS as needed for sleep 09/04/2016 10/17/2016 Inactive ropinirole 1 mg tablet RxNorm: 873478 1.5 Tablet(s) PO QPM for legs/sleep 09/04/2016 11/13/2016 Inactive amitriptyline 25 mg tablet RxNorm: 806596 1 Tablet(s) P O QHS as needed for sleep 08/22/2016 09/03/2016 Inactive clopidogrel 75 mg tablet RxNorm: 704303 1 Tablet(s) PO QD 08/10/2016 10/17/2016 Inactive Zoloft 100 mg tablet RxNorm: 399253 2 Tablet(s) PO QHS 08/10/2016 Inactive atorvastatin 40 mg tablet RxNorm: 166112 1 Tablet(s) PO QD 08/10/20 16 10/17/2016 Inactive ropinirole 1 mg tablet RxNorm: 629806 1 Tablet(s) PO QPM for le gs/sleep 08/10/2016 09/03/2016 Inactive losartan 100 mg tablet RxNorm: 906094 1 Tablet(s) PO QD replace s lisinopril 07/20/2016 02/21/2017 Inactive Zofran 4 mg tablet RxNorm: 928982 1 Tablet(s) PO Q4H as needed for nausea 07/06/2016 10/17/2016 Inactive Flagyl 500 mg tablet RxNorm: 986490 1 Tablet(s) PO TID 07/06/2016 Inactive Plavix 75 mg tablet RxNorm: 364378 1 Tablet(s) PO QD 06/08/201607/05 Inactive isosorbide mononitrate ER 30 mg tablet,extended release 24 h r RxNorm: 290651 1 Tablet(s) PO QAM 06/08/2016 08/09/2016 Inactive atorvastatin 40 mg tablet RxNorm: 413339 1 Tablet(s) PO QD 06/08/20 16 08/09/2016 Inactive hydrochlorothiazide 12.5 mg tablet RxNorm: 019013 1 Tablet(s) PO QA M 06/08/2016 07/05/2016 Inactive metformin ER 1,000 mg tablet,extended release 24hr RxNorm: 8 14477 1 Tablet(s) PO BID 06/08/2016 09/05/2016 Inactive metoprolol tartrate 25 mg tablet RxNorm: 613183 1/2 Tablet(s) PO BI D 06/08/2016 08/09/2016 Inactive Zoloft 100 mg tablet RxNorm: 389962 2 Tablet(s) PO QHS 04/03/2016 Inactive metformin ER 1,000 mg tablet,extended release 24hr RxNorm: 8 57173 Tablet(s) 1 Tablet(s) PO QD 03/30/2016 12/18/2018 Inactive Levemir FlexTouch 100 unit/mL (3 mL) subcutaneous insulin pe n RxNorm: 339807 10 Unit(s) SQ QD 03/09/2016 03/08/2016 Inactive Levemir FlexTouch 100 unit/mL (3 mL) subcutaneous insulin pe n RxNorm: 330036 10 Unit(s) SQ QD with pen needles 03/09/2016 03/20/2016 Inactive Mobic 15 mg tablet RxNorm: 454589 1 Tablet(s) PO QD for foot pain 0 02/17/2016 03/17/2016 Inactive Zoloft 100 mg tablet RxNorm: 764846 1 1/2 Tablet(s) PO QHS 01/31/20 16 04/02/2016 Inactive omeprazole 20 mg capsule,delayed release RxNorm: 716026 TAKE 2 CAPSULES BY MOUTH EVERY DAY 01/12/2016 08/09/2016 Inactive Generic For:*CHERYL LOSEC [address] 01/12/2016 8:58:34 AM Zoloft 100 mg tablet RxNorm: 865320 1/2 Tablet(s) PO QH S for 1 week then 1 tablet po q HS 12/30/2015 01/27/2016 Inactive Ventolin HFA 90 mcg/actuation aerosol inhaler RxNorm: 798770 2 Puff(s) INH QID as needed for shortness of breath 12/30/2015 02/03/2018 Inactive [AttnRPh: Saving apply/adjudicate RxGRP:SG20 RxBIN:[id number] RxPCN: ID#:[id number]] metformin ER 1,000 mg tablet,extended release 24hr RxNorm: 8 22890 1 Tablet(s) PO QD 12/20/2015 03/18/2016 Inactive clindamycin 300 mg capsule RxNorm: 702892 1 Capsule(s) PO TID 12/0512/15/2015 Inactive mupirocin 2 % topical cream RxNorm: 296607 TOP to facial lesion s twice daily 11/15/2015 12/15/2015 Inactive cefdinir 300 mg capsule RxNorm: 992065 1 Capsule(s) PO BID 11/15/19 16 11/24/2015 Inactive Medrol (Gui) 4 mg tablets in a dose pack RxNorm: 939656 Tablet(s) PO as directed 10/11/2015 12/15/2015 Inactive albuterol sulfate 2.5 mg/3 mL (0.083 %) solution for n ebulization RxNorm: 107019 INH USE 1 VIAL IN NEBULIZER EVERY FOUR H OURS NEEDED FOR WHEEZING OR SHORTNESS OF BREATH 10/05/2015 10/04/2015 Inactive Generic For:*PRO VENTIL 0.83 MG/ML SOLUTN 06/13/2013 2:04:46 PM doxycycline hyclate 100 mg capsule RxNorm: 3167860 1 Capsule(s) PO BID 10/05/2015 10/14/2015 Inactive albuterol sulfate 2.5 mg/3 mL (0.083 %) solution for n ebulization RxNorm: 408467 Milliliter(s) INH USE 1 VIAL IN NEBULIZE R EVERY FOUR HOURS NEEDED FOR WHEEZING OR SHORTNESS OF BREATH Dx: J44.9 10/05/2015 12/05/2017 Inacti ve Generic For:*PROVENTIL 0.83 MG/ML SOLUTN 06/13/2013 2:04:46 PM albuterol sulfate 2.5 mg/3 mL (0.083 %) solution for n ebulization RxNorm: 429125 3 Milliliter(s) INH USE 1 VIAL IN NEBULI ZER EVERY FOUR HOURS NEEDED FOR WHEEZING OR SHORTNESS OF BREATH 09/06/2015 10/04/2015 Inactive Generic For:*PROVENTIL 0.83 MG/ML SOLUTN 06/13/2013 2:04:46 PM Tradjenta 5 mg tablet RxNorm: 4659613 2 Tablet(s) PO QD 07/22/2015 Inactive albuterol sulfate 2.5 mg/3 mL (0.083 %) solution for n ebulization RxNorm: 799601 3 Milliliter(s) INH USE 1 VIAL IN NEBULI ZER EVERY FOUR HOURS NEEDED FOR WHEEZING OR SHORTNESS OF BREATH 06/29/2015 09/05/2015 Inactive Generic For:*PROVENTIL 0.83 MG/ML SOLUTN 06/13/2013 2:04:46 PM albuterol sulfate 2.5 mg/3 mL (0.083 %) solution for n ebulization RxNorm: 621343 Milliliter(s) INH USE 1 VIAL IN NEBULIZE R EVERY FOUR HOURS NEEDED FOR WHEEZING OR SHORTNESS OF BREATH 06/29/2015 12/04/2017 Inactive Generic For:*PROVENTIL 0.83 MG/ML SOLUTN 06/13/2013 2:04:46 PM doxycycline hyclate 100 mg tablet RxNorm: 450858 1 Tablet(s) PO BID 06/28/2015 07/07/2015 Inactive losartan 100 mg tablet RxNorm: 427601 1 Tablet(s) PO QD -replac es lisinopril 06/14/2015 09/05/2015 Inactive metformin ER 1,000 mg tablet,extended release 24hr RxNorm: 8 64447 1 Tablet(s) PO QD 06/14/2015 09/11/2015 Inactive losartan 100 mg tablet RxNorm: 227112 1 Tablet(s) PO QD -replac es lisinopril 06/14/2015 12/10/2015 Inactive Zocor 20 mg tablet RxNorm: 699380 Tablet(s) Tablet(s) 1 Tablet(s) PO QD -needs lipids labs 06/14/2015 06/14/2015 Inactive atorvastatin 40 mg tablet RxNorm: 713284 1 Tablet(s) PO QD repl aces simvastatin 06/14/2015 12/10/2015 Inactive loratadine 10 mg tablet RxNorm: 865137 Tablet(s) 1 Tablet(s) PO QD for drainage 06/14/2015 06/07/2016 Inactive Celexa 40 mg tablet RxNorm: 887270 1 Tablet(s) PO QD TA KE ONE (1) TABLET BY MOUTH DAILY 06/14/2015 12/29/2015 Inactive Generic For:HARJINDER XA 40 MG TABLET clindamycin 300 mg capsule RxNorm: 067584 2 Capsule(s) PO BID 06/0306/12/2015 Inactive metformin ER 1,000 mg tablet,extended release 24hr RxNorm: 8 54528 1 Tablet(s) PO QD 06/03/2015 06/02/2015 Inactive metformin ER 1,000 mg tablet,extended release 24hr RxNorm: 8 21499 1 Tablet(s) PO QD 06/03/2015 06/13/2015 Inactive mupirocin 2 % topical ointment RxNorm: 934720 TOP apply to open lesion of knee twice daily 06/03/2015 01/30/2016 Inactive Zocor 20 mg tablet RxNorm: 712479 Tablet(s) 1 Tablet(s ) PO QD -needs lipids labs 05/13/2015 06/13/2015 Inactive Celexa 40 mg tablet RxNorm: 524246 1 Tablet(s) PO QD TA KE ONE (1) TABLET BY MOUTH DAILY 05/13/2015 06/13/2015 Inactive Generic For:HARJINDER XA 40 MG TABLET Zocor 20 mg tablet RxNorm: 165923 Tablet(s) 1 Tablet(s ) PO QD -needs lipids labs 02/23/2015 03/24/2015 Inactive loratadine 10 mg tablet RxNorm: 953483 1 Tablet(s) PO QD for dr saenz 12/24/2014 06/13/2015 Inactive Zocor 20 mg tablet RxNorm: 381276 1 Tablet(s) PO QD -needs lipi ds labs 11/17/2014 02/23/2015 Inactive Celexa 40 mg tablet RxNorm: 170860 1 Tablet(s) PO QD 1 Tablet(s) PO QD 1 Tablet(s) PO QD Generic OKAY 11/11/2014 05/13/2015 Inactive Zocor 20 mg tablet RxNorm: 095999 1 Tablet(s) PO QD -needs lipi ds labs 11/11/2014 11/16/2014 Inactive omeprazole 20 mg capsule,delayed release RxNorm: 452129 2 Capsule(s) PO QD TAKE 2 CAPSULES BY MOUTH DAILY 10/27/2014 04/24/2015 Inactive Generi c For:*PRILOSEC 20 MG CAPSULE trazodone 50 mg tablet RxNorm: 523946 1 1/2 Tablet(s) PO QHS 201412/29/2015 Inactive losartan 100 mg tablet RxNorm: 694512 1 Tablet(s) PO QD -replac es lisinopril 10/26/2014 04/23/2015 Inactive Levaquin 500 mg tablet RxNorm: 575058 1 Tablet(s) PO QD 10/08/2014 Inactive Levaquin 500 mg tablet RxNorm: 277485 1 Tablet(s) PO QD 10/08/2014 Inactive Diflucan 100 mg tablet RxNorm: 625196 1 Tablet(s) PO QD 10/06/2014 Inactive DuoNeb 0.5 mg-3 mg(2.5 mg base)/3 mL solution for nebulizati on RxNorm: 9119124 3 Milliliter(s) INH QID 09/23/2014 08/09/2016 Inactive Ventolin HFA 90 mcg/actuation aerosol inhaler RxNorm: 258828 2 Puff(s) INH QID as needed for shortness of breath 09/21/2014 12/29/2015 Inactive [AttnRPh: Saving apply/adjudicate RxGRP:SG20 RxBIN:[id number] RxPCN: ID#:[id number]] promethazine-codeine 6.25 mg-10 mg/5 mL syrup RxNorm: 064231 1 Teaspoon(s) PO QHS as needed for cough 09/08/2014 09/20/2014 Inactive prednisone 20 mg tablet RxNorm: 567411 1 Tablet(s) PO BID 09/02/2014 09/08/2014 Inactive promethazine-codeine 6.25 mg-10 mg/5 mL syrup RxNorm: 198940 1 Teaspoon(s) PO Q4H 09/02/2014 09/20/2014 Inactive doxycycline monohydrate 100 mg capsule RxNorm: 734823 1 Capsule (s) PO BID 09/02/2014 09/07/2014 Inactive Tessalon Perles 100 mg capsule RxNorm: 506130 1 Capsule (s) PO TID as needed for cough 08/31/2014 09/20/2014 Inactive Actos 15 mg tablet RxNorm: 284862 1 Tablet(s) PO QAM 1 Tablet(s ) PO QAM 08/26/2014 09/20/2014 Inactive loratadine 10 mg tablet RxNorm: 776164 1 Tablet(s) PO QD for dr saenz 08/26/2014 10/26/2014 Inactive Zithromax 500 mg tablet RxNorm: 591469 1 Tablet(s) PO QD 08/25/2014 1 11/01/2013 Inactive Zithromax 500 mg tablet RxNorm: 961514 1 Tablet(s) PO QD 08/25/2014 1 10/25/2013 Inactive Trazadone 75mg Tablet RxNorm: 1 Tablet(s) PO QHS 08/10/20142018 Inactive Zocor 20 mg tablet RxNorm: 219391 1 Tablet(s) PO QD 08/10/20142014 Inactive Trazadone 75mg Tablet RxNorm: 1 Tablet(s) PO QHS as need ed for sleep 08/10/2014 10/08/2014 Inactive Celexa 40 mg tablet RxNorm: 786283 1 Tablet(s) PO QD 1 Tablet(s) PO QD 1 Tablet(s) PO QD Generic OKAY 06/09/2014 10/06/2014 Inactive Actos 15 mg tablet RxNorm: 311343 1 Tablet(s) PO QAM 05/12/201408/26 Inactive lisinopril 20 mg tablet RxNorm: 377086 1 Tablet(s) PO QD 05/12/2014 0 10/26/2014 Inactive TAKE ONE TABLET BY MOUTH EVERY DAY;Gener ic For:*PRINIVIL 20 MG TABLET [AttnRPh: Saving apply/adjudicate RxGRP:SG20 RxBIN:[id number] RxPCN: ID#:[id number]] hydrocodone 5 mg-acetaminophen 325 mg tablet RxNorm: 215698 1 Tablet(s) PO TID as needed for pain for severe pain 04/30/2014 08/09/2014 Inactive hydrocodone 5 mg-acetaminophen 325 mg tablet RxNorm: 625938 1 Tablet(s) PO TID as needed for pain for severe pain 04/17/2014 04/29/2014 Inactive doxycycline hyclate 100 mg capsule RxNorm: 226087 1 Capsule(s) PO BID 03/05/2014 03/04/2014 Inactive doxycycline hyclate 100 mg capsule RxNorm: 529313 1 Capsule(s) PO BID 03/05/2014 03/14/2014 Inactive albuterol sulfate 2.5 mg/3 mL (0.083 %) solution for n ebulization RxNorm: 357276 Milliliter(s) INH USE 1 VIAL IN NEBULIZE R EVERY FOUR HOURS NEEDED FOR WHEEZING OR SHORTNESS OF BREATH 03/02/2014 06/29/2015 Inactive Generic For:*PROVENTIL 0.83 MG/ML SOLUTN 06/13/2013 2:04:46 PM Celexa 40 mg tablet RxNorm: 457502 1 Tablet(s) PO QD 1 Tablet(s) PO QD replaces lexapro. Generic OKAY 01/13/2014 06/09/2014 Inactive Actos 15 mg tablet RxNorm: 996969 1 Tablet(s) PO QAM 01/07/201405/12 Inactive lisinopril 20 mg tablet RxNorm: 637093 1 Tablet(s) PO QD 12/08/2013 0 05/12/2014 Inactive TAKE ONE TABLET BY MOUTH EVERY DAY;Gener ic For:*PRINIVIL 20 MG TABLET cefdinir 300 mg capsule RxNorm: 133300 2 Capsule(s) PO QD 11/10/2013 08/09/2014 Inactive cefdinir 300 mg capsule RxNorm: 362475 2 Capsule(s) PO QD 10/09/2013 10/15/2013 Inactive Actos 15 mg tablet RxNorm: 956205 1 Tablet(s) PO QAM 10/09/201301/06 Inactive doxycycline hyclate 100 mg capsule RxNorm: 1258525 1 Capsule(s) PO Q12H 09/18/2013 09/27/2013 Inactive omeprazole 20 mg capsule,delayed release RxNorm: 239888 2 Capsule(s) PO QD TAKE 2 CAPSULES BY MOUTH DAILY 09/03/2013 03/01/2014 Inactive Generi c For:*PRILOSEC [address] Celexa 40 mg tablet RxNorm: 692766 1 Tablet(s) PO QD re places lexapro. Generic OKAY 09/03/2013 01/13/2014 Inactive Symbicort 160 mcg-4.5 mcg/actuation HFA aerosol inhaler RxNo rm: 7171747 2 Puff(s) INH BID 08/13/2013 03/23/2014 Inactive metformin 1,000 mg tablet RxNorm: 860779 1 Tablet(s) PO BID 013 08/12/2013 Inactive TAKE ONE TABLET BY MOUTH TWI CE DAILY;Generic For:GLUCOPHAGE 1,000 MG TABLET 08/27/12 Thank you Actos 15 mg tablet RxNorm: 102277 1 Tablet(s) PO QAM 06/23/201310/09 Inactive lisinopril 20 mg tablet RxNorm: 865293 1 Tablet(s) PO QD 06/23/2013 0 12/08/2013 Inactive TAKE ONE TABLET BY MOUTH EVERY DAY;Gener ic For:*PRINIVIL 20 MG TABLET albuterol sulfate 2.5 mg/3 mL (0.083 %) solution for n ebulization RxNorm: 017253 Solution for Nebulization INH USE 1 VIAL IN NEBULIZER EVERY FOUR HOURS NEEDED FOR WHEEZING OR SHORTNESS OF BREATH 06/16/2013 03/01/2014 Inactive Generic For:*PROVENTIL 0.83 MG/ML SOLUTN 06/13/2013 2:04:46 PM prednisone 10 mg tablet RxNorm: 714780 1 Tablet(s) PO BID 04/09/2013 04/13/2013 Inactive AndroGel 1.25 gram/actuation (1%) Transdermal Gel Pump RxNorm: 2 62656 TD 04/09/2013 08/09/2014 Inactive APPLY 4 PUMPS OF GEL AT BEDTIME DIRECTED;WC (Appended: Controlled substance eRx refill - RxReferenceNumber: [id number]) azithromycin 250 mg tablet RxNorm: 665474 2 Tablet(s) PO QD 013 04/16/2013 Inactive Amaryl 2 mg tablet RxNorm: 768852 1 Tablet(s) PO BID N eeds appt in 1 month (around March 21) 02/18/2013 08/12/2013 Inactive Amaryl 2 mg tablet RxNorm: 656798 1 Tablet(s) PO BID 02/18/201302/17 Inactive metformin 1,000 mg tablet RxNorm: 307717 1 Tablet(s) PO BID 013 07/27/2013 Inactive TAKE ONE TABLET BY MOUTH TWI CE DAILY;Generic For:GLUCOPHAGE 1,000 MG TABLET 08/27/12 Thank you Actos 15 mg tablet RxNorm: 718624 1 Tablet(s) PO QAM 02/04/201306/03 Inactive albuterol sulfate 2.5 mg/3 mL (0.083 %) Neb Solution RxNorm: 174940 1 Unit Dose INH Q4H prn wheezing or shortness of breath 01/30/2013 06/15/2013 Inac tive Medrol (Gui) 4 mg tablets in a dose pack RxNorm: 665247 Tablet(s) PO as directed 01/20/2013 07/15/2013 Inactive cefdinir 300 mg capsule RxNorm: 604191 1 Capsule(s) PO BID anti biotic 01/20/2013 01/29/2013 Inactive lisinopril 20 mg tablet RxNorm: 394563 Tablet(s) PO 01/13/20132012 Inactive TAKE ONE TABLET BY MOUTH EVERY DAY;Gener ic For:*PRINIVIL 20 MG TABLET citalopram 40 mg tablet RxNorm: 210676 Tablet(s) PO 01/13/20132013 Inactive TAKE ONE (1) TABLET BY MOUTH DAILY;Gener ic For:CELEXA 40 MG TABLET omeprazole 20 mg capsule,delayed release RxNorm: 048382 Capsule(s) PO TAKE 2 CAPSULES BY MOUTH DAILY 11/15/2012 09/03/2013 Inactive Generic For:*PRILOSEC [address] amoxicillin 875 mg tablet RxNorm: 706649 1 Tablet(s) PO BID 013 10/28/2012 Inactive Actos 30 mg tablet RxNorm: 583327 1 Tablet(s) PO QD 09/23/20122011 Inactive Actos 15 mg tablet RxNorm: 805133 1 Tablet(s) PO QAM 09/23/201209/22 Inactive Actos 15 mg tablet RxNorm: 476191 1 Tablet(s) PO QAM 09/23/201202/04 Inactive prednisone 20 mg tablet RxNorm: 057808 1 Tablet(s) PO BID 08/28/2012 09/03/2012 Inactive doxycycline hyclate 100 mg tablet RxNorm: 5432395 1 Tablet(s) PO BI D 08/28/2012 09/06/2012 Inactive metformin 1,000 mg tablet RxNorm: 645381 Tablet(s) PO 08/27/201201/22 Inactive TAKE ONE TABLET BY MOUTH TWICE DAILY;Gen joshua For:GLUCOPHAGE 1,000 MG TABLET 08/27/12 Thank you citalopram 40 mg tablet RxNorm: 571360 Tablet(s) PO 07/30/20122012 Inactive TAKE ONE (1) TABLET BY MOUTH DAILY;Gener ic For:CELEXA 40 MG TABLET lisinopril 20 mg tablet RxNorm: 718204 Tablet(s) PO 07/30/20122012 Inactive TAKE ONE TABLET BY MOUTH EVERY DAY;Gener ic For:*PRINIVIL 20 MG TABLET AndroGel 1.25 gram/actuation (1%) Transdermal Gel Pump RxNor m: [id number] Gel in Metered-Dose Pump TD 07/09/2012 04/08/2013 Inactive APPLY 4 PUM PS OF GEL AT BEDTIME DIRECTED;WC (Appended: Controlled substance eRx refill - RxReferenceNumber: [id number]) citalopram 40 mg tablet RxNorm: 497292 Tablet(s) PO 07/01/20122011 Inactive TAKE ONE (1) TABLET BY MOUTH DAILY;Gener ic For:CELEXA 40 MG TABLET metformin 1,000 mg tablet RxNorm: 707352 1 Tablet(s) PO BID 012 08/25/2012 Inactive TAKE 1 TABLET BY MOUTH TWICE DAILY;Generic For:GLUCOPHAGE 1,000 MG TABLET meclizine 25 mg Tab RxNorm: 276752 1 Tablet(s) PO QID prn dizziness 05/09/2012 05/18/2012 Inactive lisinopril 20 mg tablet RxNorm: 950918 Tablet(s) PO QD 04/22/2012 Inactive TAKE ONE (1) TABLET BY MOUTH DAILY;Gener ic For:*PRINIVIL 20 MG TABLET metformin 1,000 mg tablet RxNorm: 899222 Tablet(s) PO 03/19/201212/2011 Inactive TAKE 1 TABLET BY MOUTH TWICE DAILY;Gener ic For:GLUCOPHAGE 1,000 MG TABLET cefdinir 300 mg Cap RxNorm: 739221 1 Capsule(s) PO BID 11/28/2011 Inactive cefdinir 300 mg Cap RxNorm: 579989 1 Capsule(s) PO BID 11/01/2011 Inactive citalopram 40 mg tablet RxNorm: 764453 Tablet(s) PO 10/30/20112011 Inactive TAKE ONE (1) TABLET BY MOUTH DAILY;Gener ic For:CELEXA 40 MG TABLET cefdinir 300 mg Cap RxNorm: 106227 1 Capsule(s) PO BID 10/02/2011 Inactive metformin 1,000 mg Tab RxNorm: 575431 1 Tablet(s) PO BID 09/28/2011 0 01/25/2012 Inactive citalopram 40 mg Tab RxNorm: 784918 1 Tablet(s) PO QD 09/28/201111/2011 Inactive omeprazole 20 mg capsule,delayed release RxNorm: 820787 2 Capsu le(s) PO QD 09/28/2011 03/25/2012 Inactive lisinopril 20 mg Tab RxNorm: 239916 Tablet(s) PO 08/21/2011 04/21/2012 Inactive TAKE ONE (1) TABLET BY MOUTH DAILY;Generic For:*PRINIVIL 20 MG TABLET AndroGel 1.25 gram/actuation (1%) Transdermal Gel Pump RxNor m: [id number] Gel in Metered-dose Pump TD 08/21/2011 07/09/2012 Inactive APPLY 4 PUM PS OF GEL AT BEDTIME DIRECTED (Appended: Controlled substance eRx refill - RxReferenceNumber: [id number]) Lantus Solostar 100 unit/mL (3 mL) Sub-Q Insulin Pen RxNorm: 423249 30 Unit(s) SQ QD 06/20/2011 05/08/2012 Inactive Lantus Solostar 100 unit/mL (3 mL) Sub-Q Insulin Pen RxNorm: 596873 30 Unit(s) SQ QD 06/19/2011 06/19/2011 Inactive metformin 1,000 mg Tab RxNorm: 938979 1 Tablet(s) PO BID 05/12/2011 1 11/09/2010 Inactive citalopram 40 mg Tab RxNorm: 870152 1 Tablet(s) PO QD 03/06/201105/2011 Inactive metformin 1,000 mg Tab RxNorm: 186151 1 Tablet(s) PO BID 12/27/2010 0 04/25/2011 Inactive lisinopril 20 mg Tab RxNorm: 946510 Tablet(s) PO TAKE 1 TABLET BY MOUTH EVERY DAY;Generic For:*PRINIVIL 20 MG TABLET 12/26/2010 08/20/2011 Inactive Ceftin 500 mg Tab RxNorm: 440610 1 Tablet(s) PO BID 12/19/20102010 Inactive omeprazole 20 mg Cap, Delayed Release RxNorm: 959392 2 Capsule( s) PO QD 09/13/2010 03/11/2011 Inactive Byetta 10 mcg/0.04 mL per dose Sub-Q Pen Injector RxNorm: 84 7913 1 Unit Dose SQ BID 09/07/2010 10/06/2010 Inactive Celexa 40 mg tablet RxNorm: 841247 1 Tablet(s) PO QD re places lexapro. Generic OKAY 08/09/2010 02/04/2011 Inactive Actos 30 mg Tab RxNorm: 408222 1 Tablet(s) PO QD 08/09/2010 04/02/2011 Inactive lisinopril 20 mg Tab RxNorm: 393839 1 Tablet(s) PO QD 08/09/201011/22 Inactive metformin 1,000 mg Tab RxNorm: 723386 1 Tablet(s) PO BID 08/09/2010 0 12/06/2010 Inactive Metformin 1,000 mg Tab RxNorm: 374167 1 Tablet(s) PO BID 04/26/2010 0 04/25/2010 Inactive metformin 1,000 mg Tab RxNorm: 280019 1 Tablet(s) PO BID 04/26/2010 1 Inactive Lomotil 2.5 mg-0.025 mg Tab RxNorm: 8164593 1 Tablet(s) PO TID 1-2 TABS THREE TIMES DAILY 04/05/2010 04/07/2010 Inactive Mupirocin 2 % Topical Cream RxNorm: 414095 TOP BID 04/05/201003/25 Inactive lisinopril 20 mg Tab RxNorm: 615493 1 Tablet(s) PO QD 03/29/201010/2009 Inactive Actos 30 mg Tab RxNorm: 509945 1 Tablet(s) PO QD 03/29/2010 07/26/2010 Inactive Lisinopril 20 mg Tab RxNorm: 186885 1 Tablet(s) PO QD 02/27/201001/2010 Inactive Actos 30 mg Tab RxNorm: 841845 1 Tablet(s) PO QD 02/14/2010 03/28/2010 Inactive Celexa 40 mg Tab RxNorm: 343686 1 Tablet(s) PO QD replaces lexapro 01/13/2010 07/11/2010 Inactive Cyclobenzaprine 10 mg Tab RxNorm: 683470 1 Tablet(s) PO TID prn spasm 12/23/2009 01/21/2010 Inactive Cyclobenzaprine 10 mg Tab RxNorm: 858993 1 Tablet(s) PO TID 010 12/22/2009 Inactive Hydrocodone-Acetaminophen 7.5 mg-750 mg Tab RxNorm: 899954 1 Ta blet(s) PO Q4-6H 12/23/2009 12/22/2009 Inactive aspirin 81 mg tablet RxNorm: 934921 1 Tablet(s) PO QD No Start Date Active isosorbide mononitrate ER 60 mg tablet,extended release 24 h r RxNorm: 300058 1 Tablet(s) PO QD No Start Date Active amlodipine 5 mg tablet RxNorm: 107100 1 Tablet(s) PO QD No Start Date Active Vitamin D3 1,000 unit tablet RxNorm: 717869 3 Tablet(s) PO QD No St art Date 10/26/2014 Inactive Lexapro 20 mg Tab RxNorm: 528517 1 Tablet(s) PO QD No Start Date 12/24 Inactive loperamide 2 mg tablet RxNorm: 766480 Tablet(s) PO PRN No Start Date 06/07/2016 Inactive Levemir FlexTouch U-100 Insulin 100 unit/mL (3 mL) sub cutaneous pen RxNorm: 387737 22 Unit(s) SQ QD No Start Date 12/21/2019 Inactive Janumet 50 mg-1,000 mg Tab RxNorm: 943359 1 Tablet(s) PO BID No Sta rt Date 01/12/2010 Inactive Levemir U-100 Insulin 100 unit/mL subcutaneous solution RxNo rm: 498100 10 Unit(s) SQ QHS No Start Date 12/08/2018 Inactive Medrol (Gui) 4 mg tablets in a dose pack RxNorm: 316068 Tablet(s) PO Use as directed No Start Date 12/22/2018 Inactive aspirin 325 mg tablet RxNorm: 759866 1 Tablet(s) PO QD No Start Date 08/09/2016 Inactive Efudex 5 % Topical Cream RxNorm: 411066 Application TOP QD prn fto skin lesion No Start Date 08/12/2013 Inactive nitroglycerin 0.4 mg sublingual tablet RxNorm: 961596 Tablet(s) SL as needed No Start Date 12/18/2018 Inactive levofloxacin 500 mg tablet RxNorm: 959776 1 Tablet(s) PO QD No Star t Date 08/06/2018 Inactive ferrous sulfate 325 mg (65 mg iron) tablet RxNorm: 095831 1 Tab let(s) PO QHS No Start Date 04/16/2017 Inactive fluorouracil 5 % topical cream RxNorm: 440920 1 TOP No Start James e 08/06/2018 Inactive Vitamin D3 1,000 unit capsule RxNorm: 096485 1 Capsule(s) PO QD No Start Date 02/03/2018 Inactive Hydrocodone-Acetaminophen 7.5 mg-750 mg Tab RxNorm: 462973 1 Ta blet(s) PO PRN No Start Date 08/09/2014 Inactive pantoprazole 40 mg tablet,delayed release RxNorm: 129767 1 Tabl et(s) PO QD No Start Date 01/22/2018 Inactive omeprazole 20 mg Cap, Delayed Release RxNorm: 763728 2 Capsule( s) PO QD No Start Date 09/12/2010 Inactive DuoNeb 0.5 mg-3 mg(2.5 mg base)/3 mL solution for nebulizati on RxNorm: 7950477 INH Q4H as needed No Start Date 10/22/2018 Inactive Lyrica 75 mg capsule RxNorm: 521417 2 Capsule(s) PO QHS No Start Da te 03/09/2019 Inactive isosorbide mononitrate ER 30 mg tablet,extended release 24 h r RxNorm: 331454 1 Tablet(s) PO QD No Start Date 12/08/2018 Inactive Tradjenta 5 mg tablet RxNorm: 3187177 1 Tablet(s) PO QD No Start Da te 08/09/2016 Inactive Tudorza Pressair 400 mcg/actuation breath activated RxNorm: 0513680 1 Puff(s) INH BID No Start Date 06/17/2017 Inactive Lantus Solostar 100 unit/mL (3 mL) Sub-Q Insulin Pen RxNorm: 645450 30 Unit(s) SQ QD No Start Date 06/18/2011 Inactive Requip 4 mg tablet RxNorm: 548984 1 Tablet(s) PO BID No Start Date Inactive Symbicort 160 mcg-4.5 mcg/actuation HFA aerosol inhaler RxNo rm: 5930008 2 Puff(s) INH BID No Start Date 07/11/2018 Inactive atorvastatin 40 mg tablet RxNorm: 141407 1 Tablet(s) PO QD No Start Date 12/18/2018 Inactive tramadol 50 mg tablet RxNorm: 730120 1 Tablet(s) PO TID as needed for pain (take alone with two extra strength tylenol) No Start Date 01/16/2019 Inactive Symbicort 160 mcg-4.5 mcg/actuation HFA aerosol inhaler RxNo rm: 9933592 2 Puff(s) INH BID No Start Date 08/12/2013 Inactive Vitamin D3 5,000 unit tablet RxNorm: 156194 1 Tablet(s) PO QD No St art Date 05/08/2019 Inactive albuterol sulfate 2.5 mg/3 mL (0.083 %) Neb Solution RxNorm: 115388 1 Unit Dose INH Q4H prn wheezing or shortness of breath No Start Date 01/29/2013 Inac tive Ranexa 500 mg tablet,extended release RxNorm: 899120 1 Tablet(s ) PO BID No Start Date 02/03/2018 Inactive Advair Diskus 500 mcg-50 mcg/dose powder for inhalation RxNo rm: 8118282 1 Puff(s) INH BID No Start Date 08/09/2016 Inactive clopidogrel 75 mg tablet RxNorm: 179211 1 Tablet(s) PO QD No Start Date 05/01/2018 Inactive metformin 1,000 mg Tab RxNorm: 856503 1 Tablet(s) PO BID No Start D ate 08/12/2013 Inactive Silenor 3 mg tablet RxNorm: 645566 1 Tablet(s) PO QHS No Start Date 0 04/04/2017 Inactive Medrol (Gui) 4 mg tablets in a dose pack RxNorm: 190604 Tablet(s) PO as directed No Start Date 01/19/2013 Inactive Requip 4 mg tablet RxNorm: 390702 1 Tablet(s) PO BID No Start Date Inactive clopidogrel 75 mg tablet RxNorm: 777152 1 Tablet(s) PO QD No Start Date 02/03/2018 Inactive Tradjenta 5 mg tablet RxNorm: 0544603 1 Tablet(s) PO QD No Start Da te 02/03/2018 Inactive ProAir HFA 90 mcg/Actuation Aerosol Inhaler RxNorm: 650343 2 Pu ff(s) INH PRN No Start Date 07/09/2012 Inactive Tessalon Perles 100 mg capsule RxNorm: 193351 1 Capsule (s) PO TID as needed for cough No Start Date 08/30/2014 Inactive ferrous sulfate 325 mg (65 mg iron) tablet RxNorm: 930461 1 Tab let(s) PO QD No Start Date 05/08/2019 Inactive pioglitazone 15 mg tablet RxNorm: 481267 1 Tablet(s) PO QD No Start Date 09/20/2014 Inactive Lexapro Oral RxNorm: Oral No Start Date 12/13/2009 Inactive Breo Ellipta 100 mcg-25 mcg/dose powder for inhalation RxNor m: 5905221 1 Puff(s) INH BID No Start Date 05/31/2015 Inactive Tylenol Extra Strength 500 mg tablet RxNorm: 797948 2 T ablet(s) PO QHS along with ropironole No Start Date 12/18/2018 Inactive tramadol 50 mg tablet RxNorm: 121965 1 Tablet(s) PO QID as need ed for pain No Start Date 12/24/2018 Inactive cyclobenzaprine 10 mg Tab RxNorm: 997891 Oral No Start Date 12/22 Inactive Levemir FlexTouch 100 unit/mL (3 mL) subcutaneous insulin pe n RxNorm: 678093 10 Unit(s) SQ QD No Start Date 03/08/2016 Inactive amlodipine 5 mg tablet RxNorm: 159970 1 Tablet(s) PO QD No Start Da te 08/09/2016 Inactive Novolog 100 unit/mL subcutaneous solution RxNorm: 615525 10 Uni t(s) SQ AC No Start Date 08/12/2017 Inactive Levemir FlexTouch 100 unit/mL (3 mL) subcutaneous insulin pe n RxNorm: 308844 25 Unit(s) SQ QPM No Start Date 08/06/2018 Inactive Farxiga 5 mg tablet RxNorm: 0891056 1 Tablet(s) PO QD No Start Date 0 10/05/2014 Inactive DuoNeb 0.5 mg-3 mg(2.5 mg base)/3 mL solution for nebulizati on RxNorm: 5937397 inhalation No Start Date 09/23/2014 Inactive Doxycycline 100 mg Cap RxNorm: 204073 1 Capsule(s) PO BID No Start Date 12/18/2010 Inactive Vitamin B12 1000mcg Tablet RxNorm: 1 Tablet(s) PO QD No Start Date 02/03/2018 Inactive Hydrocodone-Acetaminophen 7.5 mg-750 mg Tab RxNorm: 646682 1 Ta blet(s) PO Q6-8H No Start Date 12/22/2009 Inactive Xigduo XR 5 mg-1,000 mg tablet,extended release RxNorm: 1593 833 1 Tablet(s) PO QD No Start Date 05/31/2015 Inactive cyanocobalamin (vit B-12) 1,000 mcg/mL injection solution Rx Norm: 551549 1 injection weekly for 4 weeks 1 Milliliter(s) Inj No Start Date 05/08/2019 Inactive AndroGel 1.25 g/Actuation (1%) Transdermal Gel Pump RxNorm: 7377500 TD Apply 4pumps daily No Start Date 08/21/2011 Inactive Actoplus MET 15 mg-850 mg Tab RxNorm: 034282 1 Tablet(s) PO BID No Start Date 12/18/2010 Inactive Amaryl 2 mg tablet RxNorm: 018793 1 Tablet(s) PO BID No Start Date Inactive Levemir FlexTouch 100 unit/mL (3 mL) subcutaneous insulin pe n RxNorm: 152685 20 Unit(s) SQ QD No Start Date 06/12/2016 Inactive Symbicort 160 mcg-4.5 mcg/actuation HFA aerosol inhaler RxNo rm: 2472941 2 Puff(s) INH BID No Start Date 02/03/2018 Inactive Symbicort 160 mcg-4.5 mcg/Actuation Inhalation HFA Aer osol Inhaler RxNorm: 6017940 2 INH BID No Start Date 12/18/2010 Inactive Farxiga 5 mg tablet RxNorm: 5271004 1 Tablet(s) PO QD No Start Date 0 03/01/2015 Inactive magnesium oxide 400 mg (241.3 mg magnesium) tablet RxNorm: 1 31522 1 Tablet(s) PO QHS No Start Date 05/08/2019 Inactive Tradjenta 5 mg tablet RxNorm: 8299963 2 Tablet(s) PO QD No Start Da te 07/21/2015 Inactive Levemir FlexTouch U-100 Insulin 100 unit/mL (3 mL) sub cutaneous pen RxNorm: 903998 40 Unit(s) SQ QD No Start Date 08/06/2018 Inactive Sinemet CR 50 mg-200 mg tablet,extended release RxNorm: 8343 41 1 Tablet(s) PO QHS No Start Date 09/24/2017 Inactive metoprolol tartrate 25 mg tablet RxNorm: 610010 1/2 Tablet(s) P O BID No Start Date 02/03/2018 Inactive Requip 4 mg tablet RxNorm: 704495 1 Tablet(s) PO QHS No Start Date Inactive Ventolin HFA 90 mcg/actuation aerosol inhaler RxNorm: 369712 2 Puff(s) INH Q4H as needed No Start Date 04/22/2018 Inactive B12 5,000 mcg-100 mcg sublingual lozenge RxNorm: 766320 IM as d irected No Start Date 05/08/2019 Inactive ropinirole 1 mg tablet RxNorm: 749319 1 Tablet(s) PO QHS No Start D ate 08/06/2018 Inactive Percocet 5 mg-325 mg tablet RxNorm: 1066848 1 Tablet(s) PO Q4H as needed for pain (Dr Rizzo) No Start Date 10/22/2018 Inactive hydrocodone 5 mg-acetaminophen 325 mg tablet RxNorm: 041562 1 Tablet(s) PO TID as needed for pain for severe pain No Start Date 04/16/2014 Inactive scopolamine 1.5 mg 72 hr Transderm Patch RxNorm: 346285 Application TD Q72H for dizziness No Start Date 08/12/2013 Inactive ipratropium-albuterol 0.5 mg-3 mg(2.5 mg base)/3 mL ne bulization soln RxNorm: 8082034 1 Unit Dose INH Q4H No Start Date 01/16/2019 Inactive Medication Administered No Medication Administered data Immunizations Vaccine Codes Date Status Influenza CVX: 135 08/07/2019 Complete Pneumococcal CVX: 33 07/24/2017 Complete Influenza CVX: 135 06/13/2016 Complete Pneumococcal CVX: 133 06/13/2016 Complete Influenza CVX: 141 07/10/2012 Pneumovax Unknown 07/10/2012 Results Observation Observation Code Item Item Code Result Date S ervice Location COMPLETE BLOOD COUNT [id number] WBC 5.5 10e9/L 06/17/20 19 Unknown COMPLETE BLOOD COUNT [id number] RBC 3.92 10e12/L 2018 Unknown COMPLETE BLOOD COUNT 1600228 HEMOGLOBIN 10.9 g/dL 06/17/20 19 Unknown COMPLETE BLOOD COUNT [id number] HEMATOCRIT 34.8 % 06/17/20 19 Unknown COMPLETE BLOOD COUNT 4857788 MCV 88.8 fL 9 Unknown COMPLETE BLOOD COUNT 2591989 MCH 27.8 pg 9 Unknown COMPLETE BLOOD COUNT 4544617 MCHC 31.3 g/dL 9 Unknown COMPLETE BLOOD COUNT 6981817 PLATELET COUNT 239 10e9/L Unknown COMPLETE BLOOD COUNT 8136207 Mean Plt Volume 10.0 fL Unknown COMPLETE BLOOD COUNT 7852803 Neut Auto 68.0 % 9 Unknown COMPLETE BLOOD COUNT 9146225 Lymph Auto 14.8 % 06/17/20 19 Unknown COMPLETE BLOOD COUNT 5721952 [place] Auto 13.1 % 9 Unknown COMPLETE BLOOD COUNT 9520765 RDW 14.7 % 9 Unknown COMPLETE BLOOD COUNT 3860705 Eos Auto 3.6 % 9 Unknown COMPLETE BLOOD COUNT 0672229 Baso Auto 0.5 % 9 Unknown COMPLETE BLOOD COUNT 8798794 Neutrophil Abs 3.74 10e9/L Unknown COMPLETE BLOOD COUNT 8148927 Lymphocyte Abs 0.81 10e9/L Unknown COMPLETE BLOOD COUNT 6325015 Monocyte Abs 0.72 10e9/L 05/26 Unknown COMPLETE BLOOD COUNT 8930795 Eosinophil Abs 0.20 10e9/L Unknown COMPLETE BLOOD COUNT 5740350 RDW-SD 46.4 fL 9 Unknown COMPLETE BLOOD COUNT 3758239 Basophil Abs 0.03 10e9/L 05/26 Unknown IRON 18067 Iron 36 ug/dL 06/17/2019 Unknown VITAMIN B 12 19666 VITAMIN B12 540 pg/mL 06/17/2019 Unkn own GFR CALC 3546819 GFR Non Afr Amr 59 mL/min 06/17/2019 Unk nown GFR CALC 5127230 GFR Afr Amr >60 mL/min 06/17/2019 Unknow n ERYTHROCYTE SEDIMENTATION RATE 68736 Sed Rate 34 mm/hr 06/17/2019 Unknown THYROID STIMULATING HORMONE 42166 TSH 2.217 uIU/mL 06/17/2019 Unknown COMPREHENSIVE METABOLIC 54441 AST 12 U/L 2018 Unknown COMPREHENSIVE METABOLIC 99401 ALT 11 U/L 2018 Unknown COMPREHENSIVE METABOLIC 07967 BUN 17 mg/dL 2018 Unknown COMPREHENSIVE METABOLIC 71245 ALBUMIN 3.9 g/dL 2018 Unknown COMPREHENSIVE METABOLIC 49493 CHLORIDE 103 mmol/L 06/17 Unknown COMPREHENSIVE METABOLIC 52417 Bili Total 0.4 mg/dL 06/17 Unknown COMPREHENSIVE METABOLIC 76420 ALK PHOS 51 U/L 2018 Unknown COMPREHENSIVE METABOLIC 26424 SODIUM 140 mmol/L 06/17 Unknown COMPREHENSIVE METABOLIC 18160 CREATININE 1.20 mg/dL 05/26 Unknown COMPREHENSIVE METABOLIC 44802 CALCIUM 8.9 mg/dL 2018 Unknown COMPREHENSIVE METABOLIC 47603 POTASSIUM 4.5 mmol/L 06/17 Unknown COMPREHENSIVE METABOLIC 47460 Total Protein 6.1 g/dL Unknown COMPREHENSIVE METABOLIC 36866 Glucose 108 mg/dL 2018 Unknown COMPREHENSIVE METABOLIC 51848 Bicarbonate 27 mmol/L 05/26 Unknown COMPREHENSIVE METABOLIC 28558 AGAP 10 mmol/L 2018 Unknown FERRITIN 98107 FERRITIN 35.5 ng/mL 05/08/2019 Unknown VITAMIN D TOTAL (25 HYDROXY) 24921 Vitamin D 25 OH 26.0 ng/mL 05/08/2019 Unknown GLYCOSYLATED HEMOGLOBIN TEST 89342 Hgb A1c 98456-8 8.2 % 0 05/08/2019 Unknown MEAN GLUC 6645998 Calc Mean Gluc 189 mg/dL 05/08/2019 Unkn own GFR CALC 0905266 GFR Non Afr Amr >60 mL/min 05/08/2019 Un known GFR CALC 1285271 GFR Afr Amr >60 mL/min 05/08/2019 Unknow n VITAMIN B 12 23717 VITAMIN B12 197 pg/mL 05/08/2019 Unkn own IRON 54305 Iron 34 ug/dL 05/08/2019 Unknown COMPLETE BLOOD COUNT 8730750 WBC 6.9 10e9/L 05/08/20 19 Unknown COMPLETE BLOOD COUNT 6836492 RBC 3.95 10e12/L 2018 Unknown COMPLETE BLOOD COUNT 3419214 HEMOGLOBIN 11.1 g/dL 05/08/20 19 Unknown COMPLETE BLOOD COUNT 2463490 HEMATOCRIT 34.9 % 05/08/20 19 Unknown COMPLETE BLOOD COUNT 0178068 MCV 88.4 fL 9 Unknown COMPLETE BLOOD COUNT 8278763 MCH 28.1 pg 9 Unknown COMPLETE BLOOD COUNT 8572732 MCHC 31.8 g/dL 9 Unknown COMPLETE BLOOD COUNT 3997452 PLATELET COUNT 217 10e9/L Unknown COMPLETE BLOOD COUNT 3875297 Mean Plt Volume 9.6 fL Unknown COMPLETE BLOOD COUNT 8932649 Neut Auto 77.6 % 9 Unknown COMPLETE BLOOD COUNT 4700029 Lymph Auto 10.7 % 05/08/20 19 Unknown COMPLETE BLOOD COUNT 3406733 [place] Auto 10.4 % 9 Unknown COMPLETE BLOOD COUNT 5048945 RDW 14.7 % 9 Unknown COMPLETE BLOOD COUNT 3566529 Eos Auto 1.2 % 9 Unknown COMPLETE BLOOD COUNT 2101556 Baso Auto 0.1 % 9 Unknown COMPLETE BLOOD COUNT 0523149 Neutrophil Abs 5.35 10e9/L Unknown COMPLETE BLOOD COUNT 5957777 Lymphocyte Abs 0.74 10e9/L Unknown COMPLETE BLOOD COUNT 8298540 Monocyte Abs 0.72 10e9/L 04/24 Unknown COMPLETE BLOOD COUNT 3146282 Eosinophil Abs 0.08 10e9/L Unknown COMPLETE BLOOD COUNT 0535438 RDW-SD 46.6 fL 9 Unknown COMPLETE BLOOD COUNT 6185685 Basophil Abs 0.01 10e9/L 04/24 Unknown COMPREHENSIVE METABOLIC 35196 AST 13 U/L 2018 Unknown COMPREHENSIVE METABOLIC 51490 ALT 9 U/L 2018 Unknown COMPREHENSIVE METABOLIC 86179 BUN 18 mg/dL 2018 Unknown COMPREHENSIVE METABOLIC 46931 ALBUMIN 4.3 g/dL 2018 Unknown COMPREHENSIVE METABOLIC 45552 CHLORIDE 99 mmol/L 2018 Unknown COMPREHENSIVE METABOLIC 88435 Bili Total 0.4 mg/dL 05/08 Unknown COMPREHENSIVE METABOLIC 33965 ALK PHOS 48 U/L 2018 Unknown COMPREHENSIVE METABOLIC 79937 SODIUM 137 mmol/L 05/08 Unknown COMPREHENSIVE METABOLIC 89817 CREATININE 0.79 mg/dL 04/24 Unknown COMPREHENSIVE METABOLIC 77200 CALCIUM 9.5 mg/dL 2018 Unknown COMPREHENSIVE METABOLIC 92478 POTASSIUM 4.0 mmol/L 05/08 Unknown COMPREHENSIVE METABOLIC 14240 Total Protein 6.3 g/dL Unknown COMPREHENSIVE METABOLIC 60691 Glucose 232 mg/dL 2018 Unknown COMPREHENSIVE METABOLIC 40425 Bicarbonate 27 mmol/L 04/24 Unknown COMPREHENSIVE METABOLIC 61189 AGAP 11 mmol/L 2018 Unknown GLYCOSYLATED HEMOGLOBIN TEST 83422 Hgb A1c 12987-1 8.9 % 0 12/10/2018 Unknown MEAN GLUC 3796727 Calc Mean Gluc 209 mg/dL 12/10/2018 Unkn own LIPID GROUP 34227 Cholesterol 145 mg/dL 12/09/2018 Unkno wn LIPID GROUP 58416 Triglyceride 235 mg/dL 12/09/2018 Unkn own LIPID GROUP 52715 HDL CHOLESTEROL 40 mg/dL 12/09/2018 U nknown LIPID GROUP 19774 Chol/HDL Ratio 3.62 ratio 12/09/2018 U nknown LIPID GROUP 62708 NON-HDL Chol 105 mg/dL 12/09/2018 Unkn own LIPID GROUP 25174 LDL Cholesterol 58 mg/dL 12/09/2018 U nknown THYROID STIMULATING HORMONE 06831 TSH 1.071 uIU/mL 12/09/2018 Unknown GFR CALC 6124535 GFR Non Afr Amr >60 mL/min 12/09/2018 Un known GFR CALC 2285437 GFR Afr Amr >60 mL/min 12/09/2018 Unknow n COMPLETE BLOOD COUNT 1624041 WBC 7.6 10e9/L 12/10/19 19 Unknown COMPLETE BLOOD COUNT 8831036 RBC 3.97 10e12/L 2018 Unknown COMPLETE BLOOD COUNT 9056799 HEMOGLOBIN 11.4 g/dL 12/10/19 19 Unknown COMPLETE BLOOD COUNT 4759717 HEMATOCRIT 35.8 % 12/10/19 19 Unknown COMPLETE BLOOD COUNT 2893830 MCV 90.2 fL 9 Unknown COMPLETE BLOOD COUNT 5208085 MCH 28.7 pg 9 Unknown COMPLETE BLOOD COUNT 9896315 MCHC 31.8 g/dL 9 Unknown COMPLETE BLOOD COUNT 7514201 PLATELET COUNT 200 10e9/L Unknown COMPLETE BLOOD COUNT 8910799 Mean Plt Volume 10.1 fL Unknown COMPLETE BLOOD COUNT 8966723 Neut Auto 79.0 % 9 Unknown COMPLETE BLOOD COUNT 9670345 Lymph Auto 8.3 % 12/10/19 19 Unknown COMPLETE BLOOD COUNT 8229710 [place] Auto 10.8 % 9 Unknown COMPLETE BLOOD COUNT 7361239 RDW 14.6 % 9 Unknown COMPLETE BLOOD COUNT 6698411 Eos Auto 1.5 % 9 Unknown COMPLETE BLOOD COUNT 2326531 Baso Auto 0.4 % 9 Unknown COMPLETE BLOOD COUNT 3770398 Neutrophil Abs 6.00 10e9/L Unknown COMPLETE BLOOD COUNT 2680490 Lymphocyte Abs 0.63 10e9/L Unknown COMPLETE BLOOD COUNT 6127438 Monocyte Abs 0.82 10e9/L 11/22 Unknown COMPLETE BLOOD COUNT 1804675 Eosinophil Abs 0.11 10e9/L Unknown COMPLETE BLOOD COUNT 8982322 RDW-SD 46.9 fL 9 Unknown COMPLETE BLOOD COUNT 5820851 Basophil Abs 0.03 10e9/L 11/22 Unknown COMPREHENSIVE METABOLIC 44052 AST 11 U/L 2018 Unknown COMPREHENSIVE METABOLIC 45097 ALT 11 U/L 2018 Unknown COMPREHENSIVE METABOLIC 60283 BUN 21 mg/dL 2018 Unknown COMPREHENSIVE METABOLIC 81283 ALBUMIN 4.7 g/dL 2018 Unknown COMPREHENSIVE METABOLIC 79766 CHLORIDE 99 mmol/L 2018 Unknown COMPREHENSIVE METABOLIC 00504 Bili Total 0.4 mg/dL 12/09 Unknown COMPREHENSIVE METABOLIC 94831 ALK PHOS 73 U/L 2018 Unknown COMPREHENSIVE METABOLIC 97153 SODIUM 137 mmol/L 12/09 Unknown COMPREHENSIVE METABOLIC 88667 CREATININE 1.12 mg/dL 11/22 Unknown COMPREHENSIVE METABOLIC 55205 CALCIUM 9.4 mg/dL 2018 Unknown COMPREHENSIVE METABOLIC 73015 POTASSIUM 4.2 mmol/L 12/09 Unknown COMPREHENSIVE METABOLIC 76896 Total Protein 6.8 g/dL Unknown COMPREHENSIVE METABOLIC 44303 Glucose 194 mg/dL 2018 Unknown COMPREHENSIVE METABOLIC 57509 Bicarbonate 30 mmol/L 11/22 Unknown COMPREHENSIVE METABOLIC 81024 AGAP 8 mmol/L 2018 Unknown FREE T4 05118 T4 Free 0.86 ng/dL 12/09/2018 Unknown COMPLETE BLOOD COUNT 3879472 WBC 6.8 10e9/L 04/17/20 17 Unknown COMPLETE BLOOD COUNT 4879463 RBC 3.86 10e12/L 2016 Unknown COMPLETE BLOOD COUNT 0954378 HEMOGLOBIN 9.8 g/dL 04/17/20 17 Unknown COMPLETE BLOOD COUNT 6464211 HEMATOCRIT 31.1 % 04/17/20 17 Unknown COMPLETE BLOOD COUNT 2582416 MCV 80.6 fL 7 Unknown COMPLETE BLOOD COUNT 2773386 MCH 25.4 pg 7 Unknown COMPLETE BLOOD COUNT 7773188 MCHC 31.5 g/dL 7 Unknown COMPLETE BLOOD COUNT 3760500 PLATELET COUNT 247 10e9/L Unknown COMPLETE BLOOD COUNT 9727074 Mean Plt Volume 9.7 fL Unknown COMPLETE BLOOD COUNT 5327459 Neut Auto 74.1 % 7 Unknown COMPLETE BLOOD COUNT 1822216 Lymph Auto 12.0 % 04/17/20 17 Unknown COMPLETE BLOOD COUNT 7091824 [place] Auto 10.8 % 7 Unknown COMPLETE BLOOD COUNT 2521011 RDW 15.9 % 7 Unknown COMPLETE BLOOD COUNT 4463858 Eos Auto 2.5 % 7 Unknown COMPLETE BLOOD COUNT 5932158 Baso Auto 0.6 % 7 Unknown COMPLETE BLOOD COUNT 0684786 Neutrophil Abs 5.04 10e9/L Unknown COMPLETE BLOOD COUNT 7955689 Lymphocyte Abs 0.82 10e9/L Unknown COMPLETE BLOOD COUNT 6310569 Monocyte Abs 0.73 10e9/L 03/25 Unknown COMPLETE BLOOD COUNT 7028890 Eosinophil Abs 0.17 10e9/L Unknown COMPLETE BLOOD COUNT 3507034 RDW-SD 44.4 fL 7 Unknown COMPLETE BLOOD COUNT 3909429 Basophil Abs 0.04 10e9/L 03/25 Unknown MEAN GLUC 2734655 Calc Mean Gluc 223 mg/dL 04/17/2017 Unkn own GFR CALC 5238862 GFR Non Afr Amr >60 mL/min 04/17/2017 Un known GFR CALC 9338527 GFR Afr Amr >60 mL/min 04/17/2017 Unknow n GLYCOSYLATED HEMOGLOBIN TEST 45391 Hgb A1c 64046-1 9.4 % 0 04/17/2017 Unknown IRON 50096 Iron 37 ug/dL 04/17/2017 Unknown VITAMIN B 12 01655 VITAMIN B12 280 pg/mL 04/17/2017 Unkn own THYROID STIMULATING HORMONE 88066 TSH 2.481 uIU/mL 04/17/2017 Unknown COMPREHENSIVE METABOLIC 21665 AST 13 U/L 2016 Unknown COMPREHENSIVE METABOLIC 57727 ALT 12 U/L 2016 Unknown COMPREHENSIVE METABOLIC 34465 BUN 18 mg/dL 2016 Unknown COMPREHENSIVE METABOLIC 98382 ALBUMIN 4.7 g/dL 2016 Unknown COMPREHENSIVE METABOLIC 59670 CHLORIDE 103 mmol/L 04/17 Unknown COMPREHENSIVE METABOLIC 17406 Bili Total 0.4 mg/dL 04/17 Unknown COMPREHENSIVE METABOLIC 94372 ALK PHOS 49 U/L 2016 Unknown COMPREHENSIVE METABOLIC 73415 SODIUM 140 mmol/L 04/17 Unknown COMPREHENSIVE METABOLIC 80235 CREATININE 1.14 mg/dL 03/25 Unknown COMPREHENSIVE METABOLIC 69824 CALCIUM 9.4 mg/dL 2016 Unknown COMPREHENSIVE METABOLIC 09724 POTASSIUM 4.4 mmol/L 04/17 Unknown COMPREHENSIVE METABOLIC 20501 Total Protein 6.7 g/dL Unknown COMPREHENSIVE METABOLIC 81220 Glucose 266 mg/dL 2016 Unknown COMPREHENSIVE METABOLIC 59944 Bicarbonate 25 mmol/L 03/25 Unknown COMPREHENSIVE METABOLIC 04992 AGAP 12 mmol/L 2016 Unknown FERRITIN 99100 FERRITIN 10.0 ng/mL 04/17/2017 Unknown COMPLETE BLOOD COUNT 3996300 WBC 6.8 10e9/L 12/22/19 17 Unknown COMPLETE BLOOD COUNT 9617051 RBC 3.70 10e12/L 2016 Unknown COMPLETE BLOOD COUNT 4931518 HEMOGLOBIN 8.0 g/dL 12/22/19 17 Unknown COMPLETE BLOOD COUNT 2416093 HEMATOCRIT 26.7 % 12/22/19 17 Unknown COMPLETE BLOOD COUNT 0597318 MCV 72.2 fL 7 Unknown COMPLETE BLOOD COUNT 3635809 MCH 21.6 pg 7 Unknown COMPLETE BLOOD COUNT 8259332 MCHC 30.0 g/dL 7 Unknown COMPLETE BLOOD COUNT 4612308 PLATELET COUNT 290 10e9/L Unknown COMPLETE BLOOD COUNT 3702899 Mean Plt Volume 9.3 fL Unknown COMPLETE BLOOD COUNT 9407615 Neut Auto 80.2 % 7 Unknown COMPLETE BLOOD COUNT 5168423 Lymph Auto 9.8 % 12/22/19 17 Unknown COMPLETE BLOOD COUNT 0379064 [place] Auto 8.1 % 7 Unknown COMPLETE BLOOD COUNT 3795417 RDW 17.4 % 7 Unknown COMPLETE BLOOD COUNT 1988754 Eos Auto 1.5 % 7 Unknown COMPLETE BLOOD COUNT 5121187 Baso Auto 0.4 % 7 Unknown COMPLETE BLOOD COUNT 1159906 Neutrophil Abs 5.45 10e9/L Unknown COMPLETE BLOOD COUNT 4342074 Lymphocyte Abs 0.67 10e9/L Unknown COMPLETE BLOOD COUNT 8530620 Monocyte Abs 0.55 10e9/L 11/24 Unknown COMPLETE BLOOD COUNT 1327812 Eosinophil Abs 0.10 10e9/L Unknown COMPLETE BLOOD COUNT 9664188 RDW-SD 44.1 fL 7 Unknown COMPLETE BLOOD COUNT 5092636 Basophil Abs 0.03 10e9/L 11/24 Unknown COMPLETE BLOOD COUNT 6961067 WBC 7.6 10e9/L 12/13/19 17 Unknown COMPLETE BLOOD COUNT 4099663 RBC 3.71 10e12/L 2016 Unknown COMPLETE BLOOD COUNT 3760717 HEMOGLOBIN 8.0 g/dL 12/13/19 17 Unknown COMPLETE BLOOD COUNT 1217232 HEMATOCRIT 27.3 % 12/13/19 17 Unknown COMPLETE BLOOD COUNT 5577081 MCV 73.6 fL 7 Unknown COMPLETE BLOOD COUNT 8655721 MCH 21.6 pg 7 Unknown COMPLETE BLOOD COUNT 7305146 MCHC 29.3 g/dL 7 Unknown COMPLETE BLOOD COUNT 0948514 PLATELET COUNT 330 10e9/L Unknown COMPLETE BLOOD COUNT 2332095 Mean Plt Volume 9.7 fL Unknown COMPLETE BLOOD COUNT 3183653 Neut Auto 73.2 % 7 Unknown COMPLETE BLOOD COUNT 2489752 Lymph Auto 14.5 % 12/13/19 17 Unknown COMPLETE BLOOD COUNT 9037181 [place] Auto 10.5 % 7 Unknown COMPLETE BLOOD COUNT 8013155 RDW 17.3 % 7 Unknown COMPLETE BLOOD COUNT 1946427 Eos Auto 1.3 % 7 Unknown COMPLETE BLOOD COUNT 6824838 Baso Auto 0.5 % 7 Unknown COMPLETE BLOOD COUNT 0598211 Neutrophil Abs 5.56 10e9/L Unknown COMPLETE BLOOD COUNT 4765406 Lymphocyte Abs 1.10 10e9/L Unknown COMPLETE BLOOD COUNT 5071713 Monocyte Abs 0.80 10e9/L 11/23 Unknown COMPLETE BLOOD COUNT 4066755 Eosinophil Abs 0.10 10e9/L Unknown COMPLETE BLOOD COUNT 0557051 RDW-SD 45.2 fL 7 Unknown COMPLETE BLOOD COUNT 5118347 Basophil Abs 0.04 10e9/L 11/23 Unknown IRON 10532 Iron 69 ug/dL 03/09/2016 Unknown VITAMIN B 12 39675 VITAMIN B12 311 pg/mL 03/09/2016 Unkn own MEAN GLUC 3651551 Mean Glucose 260 mg/dL 03/07/2016 Unknow n GLYCOSYLATED HEMOGLOBIN TEST 64748 Hgb A1c 96827-6 10.7 % 0 03/07/2016 Unknown COMPREHENSIVE METABOLIC 90703 AST 14 U/L 2015 Unknown COMPREHENSIVE METABOLIC 73974 ALT 21 U/L 2015 Unknown COMPREHENSIVE METABOLIC 92546 BUN 27 mg/dL 2015 Unknown COMPREHENSIVE METABOLIC 79598 ALBUMIN 4.5 g/dL 2015 Unknown COMPREHENSIVE METABOLIC 66314 CHLORIDE 101 mmol/L 03/06 Unknown COMPREHENSIVE METABOLIC 38030 Bili Total 0.4 mg/dL 03/06 Unknown COMPREHENSIVE METABOLIC 29953 ALK PHOS 49 U/L 2015 Unknown COMPREHENSIVE METABOLIC 55342 SODIUM 136 mmol/L 03/06 Unknown COMPREHENSIVE METABOLIC 26555 CREATININE 1.16 mg/dL 02/22 Unknown COMPREHENSIVE METABOLIC 94071 CALCIUM 9.9 mg/dL 2015 Unknown COMPREHENSIVE METABOLIC 50988 POTASSIUM 4.5 mmol/L 03/06 Unknown COMPREHENSIVE METABOLIC 69844 Total Protein 6.7 g/dL Unknown COMPREHENSIVE METABOLIC 43037 Glucose 245 mg/dL 2015 Unknown COMPREHENSIVE METABOLIC 99604 Bicarbonate 24 mmol/L 02/22 Unknown COMPREHENSIVE METABOLIC 18321 AGAP 11 mmol/L 2015 Unknown THYROID STIMULATING HORMONE 66156 TSH 0.775 uIU/mL 03/06/2016 Unknown TESTOSTERONE TOTAL 99756 Testos Total 96 ng/dL 03/06/20 16 Unknown LIPID GROUP 25531 Cholesterol 146 mg/dL 03/06/2016 Unkno wn LIPID GROUP 02478 Triglyceride 249 mg/dL 03/06/2016 [facility] own LIPID GROUP 74977 HDL CHOLESTEROL 46 mg/dL 03/06/2016 U [facility] LIPID GROUP 02704 Chol/HDL Ratio 3.17 ratio 03/06/2016 U [facility] LIPID GROUP 45696 NON-HDL Chol 100 mg/dL 03/06/2016 [facility] own LIPID GROUP 37029 LDL Cholesterol 50 mg/dL 03/06/2016 U [facility] COMPLETE BLOOD COUNT 4127129 WBC 11.2 10e9/L 016 Unknown COMPLETE BLOOD COUNT 6059911 RBC 3.94 10e12/L 2015 Unknown COMPLETE BLOOD COUNT 9476536 HEMOGLOBIN 11.4 g/dL 03/06/20 16 Unknown COMPLETE BLOOD COUNT 4777211 HEMATOCRIT 33.7 % 03/06/20 16 Unknown COMPLETE BLOOD COUNT 5924496 MCV 85.5 fL 6 Unknown COMPLETE BLOOD COUNT 3604850 MCH 28.9 pg 6 Unknown COMPLETE BLOOD COUNT 7059909 MCHC 33.8 g/dL 6 Unknown COMPLETE BLOOD COUNT 3877290 PLATELET COUNT 204 10e9/L Unknown COMPLETE BLOOD COUNT 0075609 Mean Plt Volume 10.1 fL Unknown COMPLETE BLOOD COUNT 4786655 Neut Auto 85.9 % 6 Unknown COMPLETE BLOOD COUNT 0128304 Lymph Auto 6.8 % 03/06/20 16 Unknown COMPLETE BLOOD COUNT 7292697 [place] Auto 7.0 % 6 Unknown COMPLETE BLOOD COUNT 7365762 RDW 13.7 % 6 Unknown COMPLETE BLOOD COUNT 0192342 Eos Auto 0.1 % 6 Unknown COMPLETE BLOOD COUNT 0653655 Baso Auto 0.2 % 6 Unknown COMPLETE BLOOD COUNT 7412174 Neutrophil Abs 9.62 10e9/L Unknown COMPLETE BLOOD COUNT 9799668 Lymphoctye Abs 0.76 10e9/L Unknown COMPLETE BLOOD COUNT 5172991 Monocyte Abs 0.78 10e9/L 02/22 Unknown COMPLETE BLOOD COUNT 0353351 Eosinophil Abs 0.01 10e9/L Unknown COMPLETE BLOOD COUNT 0240782 RDW-SD 41.9 fL 6 Unknown COMPLETE BLOOD COUNT 2457613 Basophil Abs 0.02 10e9/L 02/22 Unknown FREE T4 41103 T4 Free 0.89 ng/dL 03/06/2016 Unknown GFR CALC 9750810 GFR Non Afr Amr >60 mL/min 03/06/2016 Un known GFR CALC 5638674 GFR Afr Amr >60 mL/min 03/06/2016 Unknow n PSA EQUIMOLAR JONATAN 34123 PSA Total 0.78 ng/mL 6 Unknown FREE T4 69704 FREE T4 0.90 NG/DL 07/01/2015 Unknown LIPID GROUP 74440 HDL TEST 44 MG/DL 07/01/2015 Unknown LIPID GROUP 23090 TRIG 303 MG/DL 07/01/2015 Unknown LIPID GROUP 15100 TEST LDL 56 MG/DL 07/01/2015 Unknown LIPID GROUP 65934 CHOL 161 MG/DL 07/01/2015 Unknown LIPID GROUP 98390 RCHOL/HDL 3.66 RATIO 07/01/2015 Unknow n LIPID GROUP 91064 NON-HDL CH 117 MG/DL 07/01/2015 Unknow n THYROID STIMULATING HORMONE 80739 TSH 1.783 uIU/ML 07/01/2015 Unknown COMPLETE BLOOD COUNT 6486687 WBC 6.6 10e9/L 07/01/20 15 Unknown COMPLETE BLOOD COUNT 2887867 RBC 4.18 10e12/L 2014 Unknown COMPLETE BLOOD COUNT 1448332 HGB 12.2 g/dL 5 Unknown COMPLETE BLOOD COUNT 4001374 HCT DET 37.0 % 5 Unknown COMPLETE BLOOD COUNT 5546522 MCV 88.5 fL 5 Unknown COMPLETE BLOOD COUNT 7788169 MCH 29.2 pg 5 Unknown COMPLETE BLOOD COUNT 1968222 MCHC 33.0 g/dL 5 Unknown COMPLETE BLOOD COUNT 9801113 PLT 224 10e9/L 07/01/20 15 Unknown COMPLETE BLOOD COUNT 3905243 MPV 10.4 fL 5 Unknown COMPLETE BLOOD COUNT 4869885 SUSIE % 72.6 % 5 Unknown COMPLETE BLOOD COUNT 6627158 LY % 14.1 % 5 Unknown COMPLETE BLOOD COUNT 2914962 MON % 10.2 % 5 Unknown COMPLETE BLOOD COUNT 7576574 EOS % 2.6 % 5 Unknown COMPLETE BLOOD COUNT 0715187 BASO % 0.5 % 5 Unknown COMPLETE BLOOD COUNT 9376767 RDW 14.1 % 5 Unknown COMPLETE BLOOD COUNT 0490827 ABS SUSIE 4.79 10e9/L 015 Unknown COMPLETE BLOOD COUNT 7222592 ABS LYMPH 0.93 10e9/L 015 Unknown COMPLETE BLOOD COUNT 3332128 ABS MONO 0.67 10e9/L 015 Unknown COMPLETE BLOOD COUNT 9008343 ABS EOS 0.17 10e9/L 015 Unknown COMPLETE BLOOD COUNT 0553360 ABS BASO 0.03 10e9/L 015 Unknown COMPLETE BLOOD COUNT 0952129 RDW-SD 43.9 fL 5 Unknown PSA EQUIMOLAR JONATAN 17026 PSA EQ 0.73 NG/ML 5 Unknown COMPREHENSIVE METABOLIC 19660 AST 24 U/L 2014 Unknown COMPREHENSIVE METABOLIC 68696 ALT 26 IU/L 2014 Unknown COMPREHENSIVE METABOLIC 65800 BUN 26 MG/DL 2014 Unknown COMPREHENSIVE METABOLIC 50868 ALBUMIN 4.6 GM/DL 2014 Unknown COMPREHENSIVE METABOLIC 94659 CHLORIDE 102 MMOL/L 06/01 Unknown COMPREHENSIVE METABOLIC 38810 BILI TOT 0.5 MG/DL 2014 Unknown COMPREHENSIVE METABOLIC 56891 ALK PHOS 56 U/L 2014 Unknown COMPREHENSIVE METABOLIC 62075 SODIUM 136 MMOL/L 06/01 Unknown COMPREHENSIVE METABOLIC 75263 CREATININE 1.16 MG/DL 04/2015 Unknown COMPREHENSIVE METABOLIC 52881 CALCIUM 9.8 MG/DL 2014 Unknown COMPREHENSIVE METABOLIC 46805 POTASSIUM 4.6 MMOL/L 06/01 Unknown COMPREHENSIVE METABOLIC 48748 PROT TOT 7.4 GM/DL 2014 Unknown COMPREHENSIVE METABOLIC 97628 Glucose 223 MG/DL 2014 Unknown COMPREHENSIVE METABOLIC 74917 BICARB 27 MMOL/L 2014 Unknown COMPREHENSIVE METABOLIC 63577 ANION GAP 7 MEQ/L 2014 Unknown GFR CALC 6256656 GFR AA >60 ML/MIN 06/01/2015 Unknown GFR CALC 5997437 GFR NON-AA >60 ML/MIN 06/01/2015 Unknown GLYCOSYLATED HEMOGLOBIN TEST 13015 A1C HPLC 21387-4 8.9 % 0 06/01/2015 Unknown GFR CALC 8220251 GFR AA >60 ML/MIN 02/25/2015 Unknown GFR CALC 2818448 GFR NON-AA >60 ML/MIN 02/25/2015 Unknown COMPREHENSIVE METABOLIC 04712 AST 24 U/L 2014 Unknown COMPREHENSIVE METABOLIC 19773 ALT 25 IU/L 2014 Unknown COMPREHENSIVE METABOLIC 83581 BUN 14 MG/DL 2014 Unknown COMPREHENSIVE METABOLIC 76626 ALBUMIN 4.5 GM/DL 2014 Unknown COMPREHENSIVE METABOLIC 56219 CHLORIDE 99 MMOL/L 2014 Unknown COMPREHENSIVE METABOLIC 13523 BILI TOT 0.5 MG/DL 2014 Unknown COMPREHENSIVE METABOLIC 88336 ALK PHOS 48 U/L 2014 Unknown COMPREHENSIVE METABOLIC 55736 SODIUM 136 MMOL/L 02/25 Unknown COMPREHENSIVE METABOLIC 93175 CREATININE 0.97 MG/DL 12/2014 Unknown COMPREHENSIVE METABOLIC 95525 CALCIUM 9.9 MG/DL 2014 Unknown COMPREHENSIVE METABOLIC 26661 POTASSIUM 4.4 MMOL/L 02/25 Unknown COMPREHENSIVE METABOLIC 81917 PROT TOT 7.1 GM/DL 2014 Unknown COMPREHENSIVE METABOLIC 98016 Glucose 171 MG/DL 2014 Unknown COMPREHENSIVE METABOLIC 27706 BICARB 25 MMOL/L 2014 Unknown COMPREHENSIVE METABOLIC 84943 ANION GAP 12 MEQ/L 2014 Unknown PROTEIN/CREAT URINE WITH RATIO 80892|17246 PROT R U 19 MG/D L 08/27/2014 Unknown PROTEIN/CREAT URINE WITH RATIO 73227|15672 CREAT R U 111 MG/ DL 08/27/2014 Unknown PROTEIN/CREAT URINE WITH RATIO 27554|45285 XRATIO P/C 171 MG /G 08/27/2014 Unknown MICROALBUMIN URINE RANDOM 60480 MICRL MG/L 34.7 MG/L 12/2013 Unknown MICROALBUMIN URINE RANDOM 97153 XM.ALB/CRE 32.7 MG/GCR 1 10/28/2013 Unknown MICROALBUMIN URINE RANDOM 98264 CREAT MG/D 106 MG/DL 12/2013 Unknown MICROALBUMIN URINE RANDOM 93491 CRE/100 1.06 G/L 12/2013 Unknown COMPLETE BLOOD COUNT 8198924 WBC 7.1 10e9/L 08/05/20 14 Unknown COMPLETE BLOOD COUNT [id number] RBC 4.35 10e12/L 2013 Unknown COMPLETE BLOOD COUNT [id number] HGB 12.9 g/dL 4 Unknown COMPLETE BLOOD COUNT 7683515 HCT DET 39.4 % 4 Unknown COMPLETE BLOOD COUNT [id number] MCV 90.6 fL 4 Unknown COMPLETE BLOOD COUNT [id number] MCH 29.7 pg 4 Unknown COMPLETE BLOOD COUNT [id number] MCHC 32.7 g/dL 4 Unknown COMPLETE BLOOD COUNT [id number] PLT 240 10e9/L 08/05/20 14 Unknown COMPLETE BLOOD COUNT [id number] MPV 10.3 fL 4 Unknown COMPLETE BLOOD COUNT [id number] SUSIE % 70.0 % 4 Unknown COMPLETE BLOOD COUNT [id number] LY % 16.4 % 4 Unknown COMPLETE BLOOD COUNT 1554159 MON % 9.2 % 4 Unknown COMPLETE BLOOD COUNT [id number] EOS % 3.8 % 4 Unknown COMPLETE BLOOD COUNT [id number] BASO % 0.6 % 4 Unknown COMPLETE BLOOD COUNT [id number] RDW 13.4 % 4 Unknown COMPLETE BLOOD COUNT 5882800 ABS SUSIE 4.97 10e9/L 014 Unknown COMPLETE BLOOD COUNT [id number] ABS LYMPH 1.16 10e9/L 014 Unknown COMPLETE BLOOD COUNT [id number] ABS MONO 0.65 10e9/L 014 Unknown COMPLETE BLOOD COUNT [id number] ABS EOS 0.27 10e9/L 014 Unknown COMPLETE BLOOD COUNT [id number] ABS BASO 0.04 10e9/L 014 Unknown COMPLETE BLOOD COUNT [id number] RDW-SD 43.3 fL 4 Unknown FREE T4 70392 FREE T4 1.02 NG/DL 08/05/2014 Unknown GFR CALC 1129734 GFR AA >60 ML/MIN 08/05/2014 Unknown GFR CALC 5627344 GFR NON-AA >60 ML/MIN 08/05/2014 Unknown GLYCOSYLATED HEMOGLOBIN TEST 35749 A1C HPLC 71014-8 7.7 % 1 10/05/2013 Unknown COMPREHENSIVE METABOLIC 69326 AST 19 U/L 2013 Unknown COMPREHENSIVE METABOLIC 39102 ALT 21 IU/L 2013 Unknown COMPREHENSIVE METABOLIC 83428 BUN 25 MG/DL 2013 Unknown COMPREHENSIVE METABOLIC 72410 ALBUMIN 4.6 GM/DL 2013 Unknown COMPREHENSIVE METABOLIC 34196 CHLORIDE 103 MMOL/L 08/05 Unknown COMPREHENSIVE METABOLIC 55993 BILI TOT 0.4 MG/DL 2013 Unknown COMPREHENSIVE METABOLIC 34540 ALK PHOS 45 U/L 2013 Unknown COMPREHENSIVE METABOLIC 21006 SODIUM 138 MMOL/L 08/05 Unknown COMPREHENSIVE METABOLIC 30099 CREATININE 1.01 MG/DL 07/25 Unknown COMPREHENSIVE METABOLIC 54755 CALCIUM 9.8 MG/DL 2013 Unknown COMPREHENSIVE METABOLIC 31482 POTASSIUM 4.7 MMOL/L 08/05 Unknown COMPREHENSIVE METABOLIC 63241 PROT TOT 7.0 GM/DL 2013 Unknown COMPREHENSIVE METABOLIC 29851 Glucose 145 MG/DL 2013 Unknown COMPREHENSIVE METABOLIC 02172 BICARB 27 MMOL/L 2013 Unknown COMPREHENSIVE METABOLIC 23282 ANION GAP 8 MEQ/L 2013 Unknown THYROID STIMULATING HORMONE 44406 TSH 1.922 uIU/ML 08/05/2014 Unknown LIPID GROUP 38763 HDL TEST 47 MG/DL 08/05/2014 Unknown LIPID GROUP 10357 TRIG 224 MG/DL 08/05/2014 Unknown LIPID GROUP 17259 TEST LDL 125 MG/DL 08/05/2014 Unknown LIPID GROUP 30870 CHOL 217 MG/DL 08/05/2014 Unknown LIPID GROUP 82730 RCHOL/HDL 4.62 RATIO 08/05/2014 Unknow n LIPID GROUP 25628 NON-HDL CH 170 MG/DL 08/05/2014 Unknow n MYCOPLASMA ANTIBODY, IFA [id number] MYCO G IFA 1:256 03/24 Unknown MYCOPLASMA ANTIBODY, IFA [id number] MYCO M IFA <1:10 03/24 Unknown MYCOPLASMA ANTIBODY, IFA [id number] MYCO INTER SEE BELO 03/24 Unknown COMPLETE BLOOD COUNT [id number] WBC 8.3 10e9/L 04/09/20 13 Unknown COMPLETE BLOOD COUNT [id number] RBC 4.61 10e12/L 2012 Unknown COMPLETE BLOOD COUNT [id number] HGB 13.9 g/dL 3 Unknown COMPLETE BLOOD COUNT [id number] HCT DET 41.2 % 3 Unknown COMPLETE BLOOD COUNT 5516672 MCV 89.4 fL 3 Unknown COMPLETE BLOOD COUNT 7555107 MCH 30.2 pg 3 Unknown COMPLETE BLOOD COUNT 2756788 MCHC 33.7 g/dL 3 Unknown COMPLETE BLOOD COUNT 3824607 PLT 249 10e9/L 04/09/20 13 Unknown COMPLETE BLOOD COUNT 1985461 MPV 9.8 fL 3 Unknown COMPLETE BLOOD COUNT 2035139 SUSIE % 65.9 % 3 Unknown COMPLETE BLOOD COUNT [id number] LY % 19.8 % 3 Unknown COMPLETE BLOOD COUNT 7991722 MON % 10.8 % 3 Unknown COMPLETE BLOOD COUNT 4027442 EOS % 3.0 % 3 Unknown COMPLETE BLOOD COUNT 1067229 BASO % 0.5 % 3 Unknown COMPLETE BLOOD COUNT 4056905 RDW 14.0 % 3 Unknown COMPLETE BLOOD COUNT [id number] ABS SUSIE 5.47 10e9/L 013 Unknown COMPLETE BLOOD COUNT [id number] ABS LYMPH 1.64 10e9/L 013 Unknown COMPLETE BLOOD COUNT 1418263 ABS MONO 0.90 10e9/L 013 Unknown COMPLETE BLOOD COUNT 4007158 ABS EOS 0.25 10e9/L 013 Unknown COMPLETE BLOOD COUNT 2757717 ABS BASO 0.04 10e9/L 013 Unknown COMPLETE BLOOD COUNT 6474380 RDW-SD 45.0 fL 3 Unknown URIC ACID 65996 URIC ACID 5.3 MG/DL 02/12/2013 Unknown FREE T4 93020 FREE T4 1.09 NG/DL 02/11/2013 Unknown COMPLETE BLOOD COUNT 9932474 WBC 6.3 10e9/L 02/12/20 13 Unknown COMPLETE BLOOD COUNT [id number] RBC 4.29 10e12/L 2012 Unknown COMPLETE BLOOD COUNT 2020931 HGB 13.1 g/dL 3 Unknown COMPLETE BLOOD COUNT [id number] HCT DET 39.7 % 3 Unknown COMPLETE BLOOD COUNT 6630250 MCV 92.5 fL 3 Unknown COMPLETE BLOOD COUNT 4312254 MCH 30.5 pg 3 Unknown COMPLETE BLOOD COUNT 4909383 MCHC 33.0 g/dL 3 Unknown COMPLETE BLOOD COUNT [id number] PLT 247 10e9/L 02/12/20 13 Unknown COMPLETE BLOOD COUNT 1949349 MPV 10.0 fL 3 Unknown COMPLETE BLOOD COUNT 3745108 SUSIE % 73.4 % 3 Unknown COMPLETE BLOOD COUNT 8061394 LY % 13.5 % 3 Unknown COMPLETE BLOOD COUNT 8239771 MON % 9.4 % 3 Unknown COMPLETE BLOOD COUNT 7996318 EOS % 2.9 % 3 Unknown COMPLETE BLOOD COUNT 8768276 BASO % 0.8 % 3 Unknown COMPLETE BLOOD COUNT 2781756 RDW 13.8 % 3 Unknown COMPLETE BLOOD COUNT 8690428 ABS SUSIE 4.62 10e9/L 013 Unknown COMPLETE BLOOD COUNT 8595600 ABS LYMPH 0.85 10e9/L 013 Unknown COMPLETE BLOOD COUNT 5394601 ABS MONO 0.59 10e9/L 013 Unknown COMPLETE BLOOD COUNT 6992954 ABS EOS 0.18 10e9/L 013 Unknown COMPLETE BLOOD COUNT [id number] ABS BASO 0.05 10e9/L 013 Unknown COMPLETE BLOOD COUNT 6971802 RDW-SD 45.7 fL 3 Unknown HEMOGLOBIN A1C (GLYCOSYLATED) 6367835 A1C HPLC 39481-3 7.5 % 02/11/2013 Unknown THYROID STIMULATING HORMONE 72620 TSH 1.466 uIU/ML 02/11/2013 Unknown VITAMIN B 12 FOLIC ACID 35467|55930 VIT B 12 625 PG/ML 01/23 Unknown VITAMIN B 12 FOLIC ACID 81112|82537 FOLIC ACID 15.6 NG/ML Unknown COMPREHENSIVE METABOLIC 46305 AST 18 U/L 2012 Unknown COMPREHENSIVE METABOLIC 69528 ALT 21 IU/L 2012 Unknown COMPREHENSIVE METABOLIC 63395 BUN 25 MG/DL 2012 Unknown COMPREHENSIVE METABOLIC 24616 ALBUMIN 4.6 GM/DL 2012 Unknown COMPREHENSIVE METABOLIC 53219 CHLORIDE 103 MMOL/L 02/11 Unknown COMPREHENSIVE METABOLIC 59879 BILI TOT 0.3 MG/DL 2012 Unknown COMPREHENSIVE METABOLIC 30706 ALK PHOS 53 U/L 2012 Unknown COMPREHENSIVE METABOLIC 78319 SODIUM 136 MMOL/L 02/11 Unknown COMPREHENSIVE METABOLIC 92514 CREATININE 1.16 MG/DL 01/23 Unknown COMPREHENSIVE METABOLIC 92103 CALCIUM 10.0 MG/DL 02/11 Unknown COMPREHENSIVE METABOLIC 83448 POTASSIUM 4.9 MMOL/L 02/11 Unknown COMPREHENSIVE METABOLIC 18909 PROT TOT 7.0 GM/DL 2012 Unknown COMPREHENSIVE METABOLIC 49772 Glucose 192 MG/DL 2012 Unknown COMPREHENSIVE METABOLIC 27556 BICARB 26 MMOL/L 2012 Unknown COMPREHENSIVE METABOLIC 89609 ANION GAP 7 MEQ/L 2012 Unknown GFR CALC 8603143 GFR AA >60 ML/MIN 02/11/2013 Unknown GFR CALC 7469005 GFR NON-AA >60 ML/MIN 02/11/2013 Unknown C-REACTIVE PROTEIN (CRP) QUANT 49851 CRP 2.7 MG/DL 02/11/2013 Unknown GFR CALC 9685092 GFR AA >60 ML/MIN 09/19/2012 Unknown GFR CALC 6368039 GFR NON-AA >60 ML/MIN 09/19/2012 Unknown HEMOGLOBIN A1C (GLYCOSYLATED) 1167343 A1C HPLC 43560-8 7.2 % 09/19/2012 Unknown COMPREHENSIVE METABOLIC 95873 AST 13 U/L 2011 Unknown COMPREHENSIVE METABOLIC 91805 ALT 17 IU/L 2011 Unknown COMPREHENSIVE METABOLIC 49688 BUN 25 MG/DL 2011 Unknown COMPREHENSIVE METABOLIC 51647 ALBUMIN 4.5 GM/DL 2011 Unknown COMPREHENSIVE METABOLIC 85657 CHLORIDE 104 MMOL/L 09/19 Unknown COMPREHENSIVE METABOLIC 55340 BILI TOT 0.3 MG/DL 2011 Unknown COMPREHENSIVE METABOLIC 05102 ALK PHOS 43 U/L 2011 Unknown COMPREHENSIVE METABOLIC 17849 SODIUM 139 MMOL/L 09/19 Unknown COMPREHENSIVE METABOLIC 45721 CREATININE 1.10 MG/DL 08/25 Unknown COMPREHENSIVE METABOLIC 09982 CALCIUM 9.8 MG/DL 2011 Unknown COMPREHENSIVE METABOLIC 52180 POTASSIUM 4.8 MMOL/L 09/19 Unknown COMPREHENSIVE METABOLIC 23972 PROT TOT 6.5 GM/DL 2011 Unknown COMPREHENSIVE METABOLIC 97871 Glucose 148 MG/DL 2011 Unknown COMPREHENSIVE METABOLIC 42840 BICARB 25 MMOL/L 2011 Unknown COMPREHENSIVE METABOLIC 83392 ANION GAP 10 MEQ/L 2011 Unknown LIPID GROUP 20452 HDL TEST 44 MG/DL 09/19/2012 Unknown LIPID GROUP 94221 TRIG 318 MG/DL 09/19/2012 Unknown LIPID GROUP 21361 TEST LDL 100 MG/DL 09/19/2012 Unknown LIPID GROUP 60036 CHOL 208 MG/DL 09/19/2012 Unknown LIPID GROUP 21421 RCHOL/HDL 4.73 RATIO 09/19/2012 Unknow n FREE T4 56995 FREE T4 0.87 NG/DL 05/06/2012 Unknown GLYCOSYLATED HEMOGLOBIN TEST 64819 A1C HPLC 48712-0 6.4 % 0 05/06/2012 Unknown LIPID GROUP 11268 HDL TEST 44 MG/DL 05/06/2012 Unknown LIPID GROUP 05785 TRIG 177 MG/DL 05/06/2012 Unknown LIPID GROUP 66099 TEST LDL 113 MG/DL 05/06/2012 Unknown LIPID GROUP 41076 CHOL 192 MG/DL 05/06/2012 Unknown LIPID GROUP 24617 RCHOL/HDL 4.36 RATIO 05/06/2012 Unknow n THYROID STIMULATING HORMONE 26205 TSH 1.151 uIU/ML 05/06/2012 Unknown COMPLETE BLOOD COUNT 62456 WBC 7.8 10e9/L 05/06/20 12 Unknown COMPLETE BLOOD COUNT 80785 RBC 4.31 10e12/L 2011 Unknown COMPLETE BLOOD COUNT 85164 HGB 12.8 g/dL 2 Unknown COMPLETE BLOOD COUNT 87352 HCT DET 39.1 % 2 Unknown COMPLETE BLOOD COUNT 08055 MCV 90.7 fL 2 Unknown COMPLETE BLOOD COUNT 95961 MCH 29.7 pg 2 Unknown COMPLETE BLOOD COUNT 66465 MCHC 32.7 g/dL 2 Unknown COMPLETE BLOOD COUNT 69222 PLT 207 10e9/L 05/06/20 12 Unknown COMPLETE BLOOD COUNT 39920 MPV 10.2 fL 2 Unknown COMPLETE BLOOD COUNT 55555 SUSIE % 74.2 % 2 Unknown COMPLETE BLOOD COUNT 04211 LY % 12.8 % 2 Unknown COMPLETE BLOOD COUNT 87988 MON % 11.0 % 2 Unknown COMPLETE BLOOD COUNT 88057 EOS % 1.7 % 2 Unknown COMPLETE BLOOD COUNT 31807 BASO % 0.3 % 2 Unknown COMPLETE BLOOD COUNT 23966 RDW 13.7 % 2 Unknown COMPLETE BLOOD COUNT 32626 ABS SUSIE 5.79 10e9/L 012 Unknown COMPLETE BLOOD COUNT 43845 ABS LYMPH 1.00 10e9/L 012 Unknown COMPLETE BLOOD COUNT 00731 ABS MONO 0.86 10e9/L 012 Unknown COMPLETE BLOOD COUNT 52353 ABS EOS 0.13 10e9/L 012 Unknown COMPLETE BLOOD COUNT 23800 ABS BASO 0.02 10e9/L 012 Unknown COMPLETE BLOOD COUNT 69095 RDW-SD 44.4 fL 2 Unknown COMPREHENSIVE METABOLIC 35307 AST 13 U/L 2011 Unknown COMPREHENSIVE METABOLIC 85649 ALT 14 IU/L 2011 Unknown COMPREHENSIVE METABOLIC 53722 BUN 17 MG/DL 2011 Unknown COMPREHENSIVE METABOLIC 54160 ALBUMIN 4.5 GM/DL 2011 Unknown COMPREHENSIVE METABOLIC 38097 CHLORIDE 101 MMOL/L 05/06 Unknown COMPREHENSIVE METABOLIC 50288 BILI TOT 0.5 MG/DL 2011 Unknown COMPREHENSIVE METABOLIC 53356 ALK PHOS 42 U/L 2011 Unknown COMPREHENSIVE METABOLIC 63190 SODIUM 141 MMOL/L 05/06 Unknown COMPREHENSIVE METABOLIC 09878 CREATININE 1.02 MG/DL 04/24 Unknown COMPREHENSIVE METABOLIC 76545 CALCIUM 9.7 MG/DL 2011 Unknown COMPREHENSIVE METABOLIC 28226 POTASSIUM 4.6 MMOL/L 05/06 Unknown COMPREHENSIVE METABOLIC 60424 PROT TOT 6.5 GM/DL 2011 Unknown COMPREHENSIVE METABOLIC 35746 Glucose 139 MG/DL 2011 Unknown COMPREHENSIVE METABOLIC 71974 BICARB 29 MMOL/L 2011 Unknown COMPREHENSIVE METABOLIC 90302 ANION GAP 11 MEQ/L 2011 Unknown GFR CALC 1941310 GFR AA >60 ML/MIN 05/06/2012 Unknown GFR CALC 9190846 GFR NON-AA 54.0L ML/MIN 05/06/2012 Unkno wn GLYCOSYLATED HEMOGLOBIN TEST 12786 A1C HPLC 64810-2 6.6 % 1 09/30/2010 Unknown FREE T4 66102 FREE T4 1.00 NG/DL 07/26/2011 Unknown LIPID GROUP 25552 HDL TEST 40 MG/DL 07/26/2011 Unknown LIPID GROUP 93152 TRIG 136 MG/DL 07/26/2011 Unknown LIPID GROUP 90396 TEST LDL 126 MG/DL 07/26/2011 Unknown LIPID GROUP 72612 CHOL 193 MG/DL 07/26/2011 Unknown LIPID GROUP 49855 RCHOL/HDL 4.83 RATIO 07/26/2011 Unknow n COMPREHENSIVE METABOLIC 02303 AST 15 U/L 2010 Unknown COMPREHENSIVE METABOLIC 31822 ALT 13 IU/L 2010 Unknown COMPREHENSIVE METABOLIC 86699 BUN 17 MG/DL 2010 Unknown COMPREHENSIVE METABOLIC 25020 ALBUMIN 4.4 GM/DL 2010 Unknown COMPREHENSIVE METABOLIC 41038 CHLORIDE 102 MMOL/L 07/26 Unknown COMPREHENSIVE METABOLIC 88944 BILI TOT 0.5 MG/DL 2010 Unknown COMPREHENSIVE METABOLIC 20369 ALK PHOS 54 U/L 2010 Unknown COMPREHENSIVE METABOLIC 84864 SODIUM 138 MMOL/L 07/26 Unknown COMPREHENSIVE METABOLIC 86527 CREATININE 0.95 MG/DL 10/2010 Unknown COMPREHENSIVE METABOLIC 53274 CALCIUM 9.3 MG/DL 2010 Unknown COMPREHENSIVE METABOLIC 80894 POTASSIUM 4.3 MMOL/L 07/26 Unknown COMPREHENSIVE METABOLIC 68123 PROT TOT 6.7 GM/DL 2010 Unknown COMPREHENSIVE METABOLIC 00598 Glucose 116 MG/DL 2010 Unknown COMPREHENSIVE METABOLIC 24176 BICARB 28 MMOL/L 2010 Unknown COMPREHENSIVE METABOLIC 28844 ANION GAP 8 MEQ/L 2010 Unknown PSA EQUIMOLAR JONATAN 43877 PSA EQ 1.01 NG/ML 1 Unknown COMPLETE BLOOD COUNT 64852 WBC 6.4 10e9/L 07/26/20 11 Unknown COMPLETE BLOOD COUNT 91803 RBC 4.43 10e12/L 2010 Unknown COMPLETE BLOOD COUNT 88531 HGB 13.2 g/dL 1 Unknown COMPLETE BLOOD COUNT 85386 HCT DET 39.3 % 1 Unknown COMPLETE BLOOD COUNT 69337 MCV 88.7 fL 1 Unknown COMPLETE BLOOD COUNT 95761 MCH 29.8 pg 1 Unknown COMPLETE BLOOD COUNT 47620 MCHC 33.6 g/dL 1 Unknown COMPLETE BLOOD COUNT 43262 PLT 226 10e9/L 07/26/20 11 Unknown COMPLETE BLOOD COUNT 97241 MPV 9.9 fL 1 Unknown COMPLETE BLOOD COUNT 90447 SUSIE % 65.4 % 1 Unknown COMPLETE BLOOD COUNT 90462 LY % 19.7 % 1 Unknown COMPLETE BLOOD COUNT 57896 MON % 10.8 % 1 Unknown COMPLETE BLOOD COUNT 79108 EOS % 3.6 % 1 Unknown COMPLETE BLOOD COUNT 45702 BASO % 0.5 % 1 Unknown COMPLETE BLOOD COUNT 63291 RDW 13.2 % 1 Unknown COMPLETE BLOOD COUNT 01989 ABS SUSIE 4.19 10e9/L 011 Unknown COMPLETE BLOOD COUNT 59452 ABS LYMPH 1.26 10e9/L 011 Unknown COMPLETE BLOOD COUNT 68598 ABS MONO 0.69 10e9/L 011 Unknown COMPLETE BLOOD COUNT 25048 ABS EOS 0.23 10e9/L 011 Unknown COMPLETE BLOOD COUNT 34359 ABS BASO 0.03 10e9/L 011 Unknown COMPLETE BLOOD COUNT 93758 RDW-SD 41.7 fL 1 Unknown THYROID STIMULATING HORMONE 75826 TSH 1.345 uIU/ML 07/26/2011 Unknown GFR CALC 4736826 GFR AA >60 ML/MIN 07/26/2011 Unknown GFR CALC 8101595 GFR NON-AA >60 ML/MIN 07/26/2011 Unknown BRAIN NATRIURETIC PEPTIDE(BNP) 15231 BRAIN PEP 23 pg/mL 01/19/2011 Unknown CANCEL 3143475 CANCEL FOOTNOTE 01/18/2011 Unknown TESTOSTERONE TOTAL 60164 TESTOS TO 138 NG/DL 12/19/2010 Unknown COMPLETE BLOOD COUNT 50060 WBC 8.4 10e9/L 12/08/19 11 Unknown COMPLETE BLOOD COUNT 90520 RBC 4.40 10e12/L 2010 Unknown COMPLETE BLOOD COUNT 81654 HGB 13.3 g/dL 1 Unknown COMPLETE BLOOD COUNT 96060 HCT DET 39.8 % 1 Unknown COMPLETE BLOOD COUNT 32080 MCV 90.5 fL 1 Unknown COMPLETE BLOOD COUNT 91890 MCH 30.2 pg 1 Unknown COMPLETE BLOOD COUNT 28278 MCHC 33.4 g/dL 1 Unknown COMPLETE BLOOD COUNT 99116 PLT 201 10e9/L 12/08/19 11 Unknown COMPLETE BLOOD COUNT 17271 MPV 10.6 fL 1 Unknown COMPLETE BLOOD COUNT 34296 SUSIE % 72.5 % 1 Unknown COMPLETE BLOOD COUNT 32371 LY % 14.8 % 1 Unknown COMPLETE BLOOD COUNT 87896 MON % 10.6 % 1 Unknown COMPLETE BLOOD COUNT 82978 EOS % 1.7 % 1 Unknown COMPLETE BLOOD COUNT 87176 BASO % 0.4 % 1 Unknown COMPLETE BLOOD COUNT 73636 RDW 13.7 % 1 Unknown COMPLETE BLOOD COUNT 92250 ABS SUSIE 6.09 10e9/L 011 Unknown COMPLETE BLOOD COUNT 99734 ABS LYMPH 1.24 10e9/L 011 Unknown COMPLETE BLOOD COUNT 50414 ABS MONO 0.89 10e9/L 011 Unknown COMPLETE BLOOD COUNT 49057 ABS EOS 0.14 10e9/L 011 Unknown COMPLETE BLOOD COUNT 51787 ABS BASO 0.03 10e9/L 011 Unknown COMPLETE BLOOD COUNT 62129 RDW-SD 44.0 fL 1 Unknown LIPID GROUP 51447 HDL TEST 40 MG/DL 12/07/2010 Unknown LIPID GROUP 58572 TRIG 383 MG/DL 12/07/2010 Unknown LIPID GROUP 66169 TEST LDL 82 MG/DL 12/07/2010 Unknown LIPID GROUP 73993 CHOL 199 MG/DL 12/07/2010 Unknown LIPID GROUP 41045 RCHOL/HDL 4.98 RATIO 12/07/2010 Unknow n GFR CALC 3998473 GFR AA >60 ML/MIN 12/07/2010 Unknown GFR CALC 4903304 GFR NON-AA >60 ML/MIN 12/07/2010 Unknown COMPREHENSIVE METABOLIC 88951 AST 29 U/L 2010 Unknown COMPREHENSIVE METABOLIC 54500 ALT 39 IU/L 2010 Unknown COMPREHENSIVE METABOLIC 13217 BUN 17 MG/DL 2010 Unknown COMPREHENSIVE METABOLIC 10775 ALBUMIN 4.9 GM/DL 2010 Unknown COMPREHENSIVE METABOLIC 12160 CHLORIDE 100 MMOL/L 12/07 Unknown COMPREHENSIVE METABOLIC 23244 BILI TOT 0.3 MG/DL 2010 Unknown COMPREHENSIVE METABOLIC 45117 ALK PHOS 53 U/L 2010 Unknown COMPREHENSIVE METABOLIC 30901 SODIUM 137 MMOL/L 12/07 Unknown COMPREHENSIVE METABOLIC 18750 CREATININE 0.98 MG/DL 11/22 Unknown COMPREHENSIVE METABOLIC 96921 CALCIUM 9.5 MG/DL 2010 Unknown COMPREHENSIVE METABOLIC 00949 POTASSIUM 4.3 MMOL/L 12/07 Unknown COMPREHENSIVE METABOLIC 90638 PROT TOT 6.6 GM/DL 2010 Unknown COMPREHENSIVE METABOLIC 93438 Glucose 176 MG/DL 2010 Unknown COMPREHENSIVE METABOLIC 52902 BICARB 28 MMOL/L 2010 Unknown COMPREHENSIVE METABOLIC 13024 ANION GAP 9 MEQ/L 2010 Unknown PSA EQUIMOLAR JONATAN 67177 PSA EQ 0.65 NG/ML 1 Unknown HEMOGLOBIN A1C (GLYCOSYLATED) 72969 A1C HPLC 10827-6 6.9 % 12/07/2010 Unknown Procedures Procedure Codes Date THER/PROPH/DIAG INJ SC/IM CPT-4: 64500 12/25/2019 METHYLPREDNISOLONE INJECTION CPT-4: J2930 12/25/2019 FLU VACC PRSV FREE INC ANTIG 65 AND OLDER CPT-4: 35381 08/07/2019 FLU VACC PRSV FREE INC ANTIG 65 AND OLDER CPT-4: 31590 08/07/2019 ADMIN INFLUENZA VIRUS VAC CPT-4: G0008 08/07/2019 THER/PROPH/DIAG INJ SC/IM CPT-4: 80245 07/14/2019 METHYLPREDNISOLONE INJECTION CPT-4: J2930 07/14/2019 ROUTINE VENIPUNCTURE CPT-4: 01732 06/17/2019 ASSAY THYROID STIM HORMONE CPT-4: 53541 06/17/2019 COMPREHEN METABOLIC PANEL CPT-4: 65138 06/17/2019 COMPLETE CBC W/AUTO DIFF WBC CPT-4: 50466 06/17/2019 ASSAY OF IRON CPT-4: 73117 06/17/2019 VITAMIN B-12 CPT-4: 49571 06/17/2019 RBC SED RATE AUTOMATED CPT-4: 03403 06/17/2019 THER/PROPH/DIAG INJ SC/IM CPT-4: 22748 06/10/2019 THER/PROPH/DIAG INJ SC/IM CPT-4: 70685 06/02/2019 THER/PROPH/DIAG INJ SC/IM CPT-4: 83142 05/27/2019 THER/PROPH/DIAG INJ SC/IM CPT-4: 71160 05/12/2019 ROUTINE VENIPUNCTURE CPT-4: 37189 05/08/2019 COMPREHEN METABOLIC PANEL CPT-4: 59968 05/08/2019 COMPLETE CBC W/AUTO DIFF WBC CPT-4: 80158 05/08/2019 A1C HPLC CPT-4: 80828 05/08/2019 VITAMIN D TOTAL (25 HYDROXY) CPT-4: 45586 05/08/2019 ASSAY OF IRON CPT-4: 41189 05/08/2019 ASSAY OF FERRITIN CPT-4: 52365 05/08/2019 VITAMIN B-12 CPT-4: 58353 05/08/2019 THER/PROPH/DIAG INJ SC/IM CPT-4: 13442 03/21/2019 METHYLPREDNISOLONE INJECTION CPT-4: J2930 03/21/2019 THER/PROPH/DIAG INJ SC/IM CPT-4: 90382 03/13/2019 METHYLPREDNISOLONE INJECTION CPT-4: J2930 03/13/2019 THER/PROPH/DIAG INJ SC/IM CPT-4: 27960 12/25/2018 METHYLPREDNISOLONE INJECTION CPT-4: J2930 12/25/2018 ROUTINE VENIPUNCTURE CPT-4: 68196 12/09/2018 ASSAY OF FREE THYROXINE CPT-4: 78091 12/09/2018 ASSAY THYROID STIM HORMONE CPT-4: 63276 12/09/2018 COMPREHEN METABOLIC PANEL CPT-4: 14928 12/09/2018 COMPLETE CBC W/AUTO DIFF WBC CPT-4: 89706 12/09/2018 LIPID PANEL CPT-4: 15124 12/09/2018 A1C HPLC CPT-4: 48092 12/09/2018 PRESCRIP TRANSMIT VIA ERX SY CPT-4: G8553 08/21/2018 PRESCRIP TRANSMIT VIA ERX SY CPT-4: G8553 08/07/2018 THER/PROPH/DIAG INJ SC/IM CPT-4: 93253 05/23/2018 METHYLPREDNISOLONE INJECTION CPT-4: J2930 05/23/2018 PRESCRIP TRANSMIT VIA ERX SY CPT-4: G8553 05/02/2018 THER/PROPH/DIAG INJ SC/IM CPT-4: 50715 04/29/2018 METHYLPREDNISOLONE INJECTION CPT-4: J2930 04/29/2018 DEXAMETHASONE SODIUM PHOS CPT-4: J1100 04/22/2018 THER/PROPH/DIAG INJ SC/IM CPT-4: 20907 04/22/2018 TRIAMCINOLONE ACET INJ NOS CPT-4: J3301 04/22/2018 PRESCRIP TRANSMIT VIA ERX SY CPT-4: G8553 04/22/2018 PRESCRIP TRANSMIT VIA ERX SY CPT-4: G8553 01/23/2018 URINALYSIS NONAUTO W/O SCOPE CPT-4: 28458 01/02/2018 URINE CULTURE/ COLONY COUNT CPT-4: 08654 01/02/2018 PRESCRIP TRANSMIT VIA ERX SY CPT-4: G8553 01/02/2018 PRESCRIP TRANSMIT VIA ERX SY CPT-4: G8553 12/28/2017 PRESCRIP TRANSMIT VIA ERX SY CPT-4: G8553 12/21/2017 CEFTRIAXONE SODIUM INJECTION CPT-4: J0696 12/17/2017 THER/PROPH/DIAG INJ SC/IM CPT-4: 43327 12/17/2017 THER/PROPH/DIAG INJ SC/IM CPT-4: 96292 12/17/2017 TRIAMCINOLONE ACET INJ NOS CPT-4: J3301 12/17/2017 PRESCRIP TRANSMIT VIA ERX SY CPT-4: G8553 12/17/2017 DRAIN/INJECT JOINT/BURSA CPT-4: 91466 12/11/2017 TRIAMCINOLONE ACET INJ NOS CPT-4: J3301 12/11/2017 DEXAMETHASONE SODIUM PHOS CPT-4: J1100 12/11/2017 DESTRUCT PREMALG LESION (Cryosurgery) CPT-4: 95713 PRESCRIP TRANSMIT VIA ERX SY CPT-4: G8553 10/17/2017 DEXAMETHASONE SODIUM PHOS CPT-4: J1100 08/02/2017 THER/PROPH/DIAG INJ SC/IM CPT-4: 25612 08/02/2017 TRIAMCINOLONE ACET INJ NOS CPT-4: J3301 08/02/2017 PRESCRIP TRANSMIT VIA ERX SY CPT-4: G8553 08/02/2017 PNEUMOCOCCAL VACC 23 OLIVIA IM CPT-4: 13629 07/24/2017 ADMIN PNEUMOCOCCAL VACCINE CPT-4: G0009 07/24/2017 ALBUTEROL NON-COMP UNIT CPT-4: J7613 07/02/2017 AIRWAY INHALATION TREATMENT CPT-4: 73738 07/02/2017 THER/PROPH/DIAG INJ SC/IM CPT-4: 11469 07/02/2017 METHYLPREDNISOLONE INJECTION CPT-4: J2930 07/02/2017 PRESCRIP TRANSMIT VIA ERX SY CPT-4: G8553 05/29/2017 ROUTINE VENIPUNCTURE CPT-4: 34906 04/17/2017 ASSAY OF IRON CPT-4: 45601 04/17/2017 VITAMIN B-12 CPT-4: 52008 04/17/2017 COMPREHEN METABOLIC PANEL CPT-4: 10275 04/17/2017 COMPLETE CBC W/AUTO DIFF WBC CPT-4: 14000 04/17/2017 ASSAY OF FERRITIN CPT-4: 97198 04/17/2017 ASSAY THYROID STIM HORMONE CPT-4: 34270 04/17/2017 A1C HPLC CPT-4: 60692 04/17/2017 DRAIN/INJECT JOINT/BURSA CPT-4: 03672 02/01/2017 TRIAMCINOLONE ACET INJ NOS CPT-4: J3301 02/01/2017 DEXAMETHASONE SODIUM PHOS CPT-4: J1100 02/01/2017 ROUTINE VENIPUNCTURE CPT-4: 58823 12/27/2016 COMPLETE CBC W/AUTO DIFF WBC CPT-4: 77120 12/27/2016 ROUTINE VENIPUNCTURE CPT-4: 36410 12/21/2016 COMPLETE CBC W/AUTO DIFF WBC CPT-4: 55755 12/21/2016 ROUTINE VENIPUNCTURE CPT-4: 90502 12/12/2016 COMPLETE CBC W/AUTO DIFF WBC CPT-4: 90500 12/12/2016 PRESCRIP TRANSMIT VIA ERX SY CPT-4: G8553 10/31/2016 PRESCRIP TRANSMIT VIA ERX SY CPT-4: G8553 10/03/2016 PRESCRIP TRANSMIT VIA ERX SY CPT-4: G8553 09/04/2016 DESTRUCT PREMALG LESION (Cryosurgery) CPT-4: 02496 DESTRUCT PREMALG LES 2-14 CPT-4: 32936 08/22/2016 PRESCRIP TRANSMIT VIA ERX SY CPT-4: G8553 08/10/2016 PRESCRIP TRANSMIT VIA ERX SY CPT-4: G8553 07/06/2016 FLU VACC PRSV FREE INC ANTIG 65 AND OLDER CPT-4: 89438 06/13/2016 PNEUMOCOCCAL VACC 13 OLIVIA IM CPT-4: 56140 06/13/2016 ADMIN INFLUENZA VIRUS VAC CPT-4: G0008 06/13/2016 ADMIN PNEUMOCOCCAL VACCINE CPT-4: G0009 06/13/2016 CERUM REMOVAL CPT-4: 06048 04/05/2016 PRESCRIP TRANSMIT VIA ERX SY CPT-4: G8553 04/03/2016 ROUTINE VENIPUNCTURE CPT-4: 52436 03/06/2016 ASSAY OF FREE THYROXINE CPT-4: 83911 03/06/2016 ASSAY THYROID STIM HORMONE CPT-4: 96680 03/06/2016 COMPREHEN METABOLIC PANEL CPT-4: 23749 03/06/2016 COMPLETE CBC W/AUTO DIFF WBC CPT-4: 35030 03/06/2016 LIPID PANEL CPT-4: 06860 03/06/2016 ASSAY OF PSA TOTAL CPT-4: 03865 03/06/2016 TESTOSTERONE TOTAL - MALE CPT-4: 67862 03/06/2016 A1C HPLC CPT-4: 57128 03/06/2016 ASSAY OF IRON CPT-4: 77850 03/06/2016 VITAMIN B-12 CPT-4: 11117 03/06/2016 INJ TENDON SHEATH/LIGAMENT CPT-4: 37955 02/17/2016 TRIAMCINOLONE ACET INJ NOS CPT-4: J3301 02/17/2016 DEXAMETHASONE SODIUM PHOS CPT-4: J1100 02/17/2016 PRESCRIP TRANSMIT VIA ERX SY CPT-4: G8553 01/31/2016 PRESCRIP TRANSMIT VIA ERX SY CPT-4: G8553 12/30/2015 PRESCRIP TRANSMIT VIA ERX SY CPT-4: G8553 12/06/2015 PRESCRIP TRANSMIT VIA ERX SY CPT-4: G8553 11/15/2015 PPPS, subseq visit CPT-4: G0439 10/05/2015 MICROALBUMIN QUANTITATIVE CPT-4: 61448 10/05/2015 PROTEIN/CREAT URINE WITH RATIO CPT-4: 62784|01200 6 ROUTINE VENIPUNCTURE CPT-4: 46562 07/01/2015 ASSAY OF FREE THYROXINE CPT-4: 34540 07/01/2015 ASSAY THYROID STIM HORMONE CPT-4: 08358 07/01/2015 COMPLETE CBC W/AUTO DIFF WBC CPT-4: 43209 07/01/2015 LIPID PANEL CPT-4: 99857 07/01/2015 ASSAY OF PSA TOTAL CPT-4: 73283 07/01/2015 AEROBIC WOUND CULTURE & STN CPT-4: 28351 06/28/2015 PRESCRIP TRANSMIT VIA ERX SY CPT-4: G8553 06/28/2015 AEROBIC WOUND CULTURE & STN CPT-4: 28256 06/03/2015 PRESCRIP TRANSMIT VIA ERX SY CPT-4: G8553 06/03/2015 ROUTINE VENIPUNCTURE CPT-4: 73929 06/01/2015 COMPREHEN METABOLIC PANEL CPT-4: 81621 06/01/2015 A1C HPLC CPT-4: 01157 06/01/2015 COMPREHEN METABOLIC PANEL CPT-4: 74166 02/25/2015 A1C HPLC CPT-4: 39850 02/25/2015 DESTRUCT PREMALG LESION (Cryosurgery) CPT-4: 82519 PROTEIN/CREAT URINE WITH RATIO CPT-4: 14477|09495 5 MICROALBUMIN QUANTITATIVE CPT-4: 87589 10/27/2014 INFLUENZA ASSAY W/OPTIC CPT-4: 86433 10/21/2014 PRESCRIP TRANSMIT VIA ERX SY CPT-4: G8553 10/06/2014 PRESCRIP TRANSMIT VIA ERX SY CPT-4: G8553 09/21/2014 PRESCRIP TRANSMIT VIA ERX SY CPT-4: G8553 09/02/2014 MICROALBUMIN QUANTITATIVE CPT-4: 37554 08/27/2014 PROTEIN/CREAT URINE WITH RATIO CPT-4: 95666|65225 4 PPPS, subseq visit CPT-4: G0439 08/10/2014 ROUTINE VENIPUNCTURE CPT-4: 54298 08/05/2014 ASSAY OF FREE THYROXINE CPT-4: 00282 08/05/2014 ASSAY THYROID STIM HORMONE CPT-4: 34471 08/05/2014 COMPREHEN METABOLIC PANEL CPT-4: 27244 08/05/2014 COMPLETE CBC W/AUTO DIFF WBC CPT-4: 91383 08/05/2014 LIPID PANEL CPT-4: 10263 08/05/2014 A1C HPLC CPT-4: 82182 08/05/2014 FLUZONE, 5ML (Medicare) CPT-4: Q2038 08/05/2014 ADMIN INFLUENZA VIRUS VAC CPT-4: G0008 08/05/2014 METHYLPREDNISOLONE 40 MG INJ CPT-4: J1030 12/16/2013 TRIAMCINOLONE ACET INJ NOS CPT-4: J3301 12/16/2013 DRAIN/INJECT JOINT/BURSA CPT-4: 98772 12/16/2013 PRESCRIP TRANSMIT VIA ERX SY CPT-4: G8553 10/09/2013 THER/PROPH/DIAG INJ SC/IM CPT-4: 20902 09/18/2013 METHYLPREDNISOLONE 40 MG INJ CPT-4: J1030 09/18/2013 TRIAMCINOLONE ACET INJ NOS CPT-4: J3301 09/18/2013 PRESCRIP TRANSMIT VIA ERX SY CPT-4: G8553 09/18/2013 PRESCRIP TRANSMIT VIA ERX SY CPT-4: G8553 08/13/2013 ROUTINE VENIPUNCTURE CPT-4: 98263 06/25/2013 ASSAY OF FREE THYROXINE CPT-4: 53578 06/25/2013 ASSAY THYROID STIM HORMONE CPT-4: 46376 06/25/2013 COMPREHEN METABOLIC PANEL CPT-4: 60318 06/25/2013 COMPLETE CBC W/AUTO DIFF WBC CPT-4: 25926 06/25/2013 LIPID PANEL CPT-4: 43034 06/25/2013 A1C GLYCOSYLATED HEMOGLOBIN TEST CPT-4: 43279 013 ROUTINE VENIPUNCTURE CPT-4: 83880 04/09/2013 COMPLETE CBC W/AUTO DIFF WBC CPT-4: 92085 04/09/2013 MYCOPLASMA ANTIBODY, IFA CPT-4: 30413V9 04/09/2013 ROUTINE VENIPUNCTURE CPT-4: 94680 02/11/2013 ASSAY OF FREE THYROXINE CPT-4: 63694 02/11/2013 ASSAY THYROID STIM HORMONE CPT-4: 83123 02/11/2013 COMPREHEN METABOLIC PANEL CPT-4: 69602 02/11/2013 COMPLETE CBC W/AUTO DIFF WBC CPT-4: 25042 02/11/2013 VITAMIN B 12 FOLIC ACID CPT-4: 83429|24950 02/11/2013 C-REACTIVE PROTEIN CPT-4: 47938 02/11/2013 A1C GLYCOSYLATED HEMOGLOBIN TEST CPT-4: 35525 013 ASSAY OF BLOOD/URIC ACID CPT-4: 41865 02/11/2013 CEFTRIAXONE SODIUM INJECTION CPT-4: J0696 01/31/2013 THER/PROPH/DIAG INJ SC/IM CPT-4: 41002 01/31/2013 THER/PROPH/DIAG INJ SC/IM CPT-4: 43158 01/31/2013 METHYLPREDNISOLONE 40 MG INJ CPT-4: J1030 01/31/2013 TRIAMCINOLONE ACET INJ NOS CPT-4: J3301 01/31/2013 ROUTINE VENIPUNCTURE CPT-4: 90158 09/19/2012 COMPREHEN METABOLIC PANEL CPT-4: 78941 09/19/2012 LIPID PANEL CPT-4: 65730 09/19/2012 A1C GLYCOSYLATED HEMOGLOBIN TEST CPT-4: 25279 012 PNEUMOCOCCAL VACC 23 OLIVIA IM CPT-4: 37436 07/10/2012 FLUZONE, 5ML (Medicare) CPT-4: Q2038 07/10/2012 ADMIN INFLUENZA VIRUS VAC CPT-4: G0008 07/10/2012 ADMIN PNEUMOCOCCAL VACCINE CPT-4: G0009 07/10/2012 ROUTINE VENIPUNCTURE CPT-4: 77548 05/06/2012 ASSAY OF FREE THYROXINE CPT-4: 34170 05/06/2012 ASSAY THYROID STIM HORMONE CPT-4: 51280 05/06/2012 COMPREHEN METABOLIC PANEL CPT-4: 02883 05/06/2012 COMPLETE CBC W/AUTO DIFF WBC CPT-4: 02499 05/06/2012 LIPID PANEL CPT-4: 99198 05/06/2012 A1C GLYCOSYLATED HEMOGLOBIN TEST CPT-4: 87040 012 IMMUNIZATION ADMIN CPT-4: 09463 02/05/2012 FLUZONE, 5ML (Medicare) CPT-4: Q2038 08/10/2011 ADMIN INFLUENZA VIRUS VAC CPT-4: G0008 08/10/2011 ROUTINE VENIPUNCTURE CPT-4: 06574 07/26/2011 ASSAY OF FREE THYROXINE CPT-4: 75545 07/26/2011 ASSAY THYROID STIM HORMONE CPT-4: 19861 07/26/2011 COMPREHEN METABOLIC PANEL CPT-4: 98069 07/26/2011 COMPLETE CBC W/AUTO DIFF WBC CPT-4: 78268 07/26/2011 LIPID PANEL CPT-4: 71179 07/26/2011 A1C GLYCOSYLATED HEMOGLOBIN TEST CPT-4: 40382 011 ASSAY OF PSA TOTAL CPT-4: 28067 07/26/2011 ROUTINE VENIPUNCTURE CPT-4: 86431 01/19/2011 ASSAY OF NATRIURETIC PEPTIDE CPT-4: 01436 01/19/2011 THER/PROPH/DIAG INJ SC/IM CPT-4: 36904 01/19/2011 CEFTRIAXONE SODIUM INJECTION CPT-4: J0696 01/19/2011 METHYLPREDNISOLONE INJECTION CPT-4: J2930 01/19/2011 THER/PROPH/DIAG INJ SC/IM CPT-4: 72377 01/19/2011 THER/PROPH/DIAG INJ SC/IM CPT-4: 79654 01/18/2011 CEFTRIAXONE SODIUM INJECTION CPT-4: J0696 01/18/2011 METHYLPREDNISOLONE INJECTION CPT-4: J2930 01/18/2011 THER/PROPH/DIAG INJ SC/IM CPT-4: 83034 01/18/2011 THER/PROPH/DIAG INJ SC/IM CPT-4: 92146 12/21/2010 TESTOSTERONE CYPIONAT 100 MG CPT-4: J1070 12/21/2010 ROUTINE VENIPUNCTURE CPT-4: 33753 12/19/2010 TESTOSTERONE TOTAL - MALE CPT-4: 89595 12/19/2010 ROUTINE VENIPUNCTURE CPT-4: 72861 12/07/2010 COMPLETE CBC W/AUTO DIFF WBC CPT-4: 82787 12/07/2010 COMPREHEN METABOLIC PANEL CPT-4: 69612 12/07/2010 LIPID PANEL CPT-4: 69163 12/07/2010 A1C GLYCOSYLATED HEMOGLOBIN TEST CPT-4: 79115 011 ASSAY OF PSA TOTAL CPT-4: 57973 12/07/2010 ROUTINE VENIPUNCTURE CPT-4: 60142 04/05/2010 PRESCRIP TRANSMIT VIA ERX SY CPT-4: G8553 04/05/2010 ROUTINE VENIPUNCTURE CPT-4: 47653 01/13/2010 METHYLPREDNISOLONE INJECTION CPT-4: J2930 12/22/2009 THER/PROPH/DIAG INJ SC/IM CPT-4: 43542 12/22/2009 THER/PROPH/DIAG INJ SC/IM CPT-4: 84462 12/22/2009 CEFTRIAXONE SODIUM INJECTION CPT-4: J0696 12/22/2009 ROUTINE VENIPUNCTURE CPT-4: 87177 12/22/2009 COMPLETE CBC W/AUTO DIFF WBC CPT-4: 34915 12/22/2009 RBC SED RATE, AUTOMATED CPT-4: 94395 12/22/2009 RPR FE/E/EN/L/M 20.1-30.0 CM CPT-4: 24242 12/22/2009 EKG FOR INITIAL PREVENT EXAM CPT-4: G0403 12/22/2009 THER/PROPH/DIAG INJ SC/IM CPT-4: 09144 12/16/2009 KETOROLAC TROMETHAMINE INJ CPT-4: J1885 12/16/2009 [...] 1: 126/68 Code: 8480-6 BMI: 30.2 Code: 50923-5 Heart Rate 1: 92 bpm Height: 6' Respiratory Rate: 22 bpm SpO2: 94% Tempera ture: 36.9 (C) / 98.5 (F) Weight: 223 lbs 08/21/2018 Blood Pressure 1: 160/70 Code: 8480-6 Heart Rate 1: 79 bpm Respiratory Rate: 20 bpm SpO2: 94% Temperature: 36.7 (C) / 98.0 (F) We ight: 226 lbs 8 oz 08/07/2018 Blood Pressure 1: 138/70 Code: 8480-6 BMI: 30.1 Code: 23264-6 Heart Rate 1: 80 bpm Height: 6' Respiratory Rate: 20 bpm SpO2: 94% Tempera ture: 36.9 (C) / 98.5 (F) Weight: 222 lbs 05/23/2018 Blood Pressure 1: 148/66 Code: 8480-6 BMI: 30.0 Code: 12468-7 Heart Rate 1: 96 bpm Height: 6' Respiratory Rate: 22 bpm SpO2: 94% Tempera ture: 37.3 (C) / 99.1 (F) Weight: 221 lbs 05/02/2018 Blood Pressure 1: 146/78 Code: 8480-6 BMI: 29.6 Code: 14791-2 Heart Rate 1: 78 bpm Height: 6' Respiratory Rate: 26 bpm SpO2: 94% Tempera ture: 35.7 (C) / 96.2 (F) Weight: 218 lbs 04/29/2018 Blood Pressure 1: 142/62 Code: 8480-6 BMI: 28.6 Code: 46012-6 Heart Rate 1: 82 bpm Height: 6' Respiratory Rate: 22 bpm SpO2: 98% Tempera ture: 36.4 (C) / 97.6 (F) Weight: 211 lbs 04/22/2018 Blood Pressure 1: 126/64 Code: 8480-6 BMI: 30.0 Code: 95459-2 Heart Rate 1: 96 bpm Height: 6' [...] 1: 144/78 Code: 8480-6 BMI: 30.7 Code: 81750-1 Heart Rate 1: 92 bpm Height: 6' Respiratory Rate: 28 bpm SpO2: 94% Tempera ture: 36.9 (C) / 98.4 (F) Weight: 226 lbs 12/28/2017 Blood Pressure 1: 136/80 Code: 8480-6 Heart Rate 1: 92 bpm Respiratory Rate: 28 bpm SpO2: 94% Temperature: 36.7 (C) / 98.1 (F) 12/21/2017 Blood Pressure 1: 146/84 Code: 8480-6 BMI: 31.1 Code: 87296-3 Heart Rate 1: 84 bpm Height: 6' [...] 1: 142/64 Code: 8480-6 BMI: 31.3 Code: 66606-0 Heart Rate 1: 98 bpm Height: 6' Respiratory Rate: 24 bpm SpO2: 94% Tempera ture: 36.4 (C) / 97.6 (F) Weight: 231 lbs 10/17/2017 Blood Pressure 1: 140/68 Code: 8480-6 BMI: 31.7 Code: 76502-7 Heart Rate 1: 88 bpm Height: 6' Respiratory Rate: 20 bpm SpO2: 94% Tempera ture: 36.8 (C) / 98.3 (F) Weight: 234 lbs 08/02/2017 Blood Pressure 1: 142/80 Code: 8480-6 BMI: 31.1 Code: 28217-2 Heart Rate 1: 86 bpm Height: 6' Respiratory Rate: 20 bpm SpO2: 90% Tempera ture: 35.9 (C) / 96.7 (F) Weight: 229 lbs 07/02/2017 Blood Pressure 1: 146/64 Code: 8480-6 BMI: 29.6 Code: 20594-6 Heart Rate 1: 96 bpm Height: 6' Respiratory Rate: 20 bpm Temperature: 36 .4 (C) / 97.6 (F) Weight: 218 lbs 05/29/2017 Blood Pressure 1: 152/68 Code: 8480-6 BMI: 31.5 Code: 46121-7 Heart Rate 1: 100 bpm Height: 6' Respiratory Rate: 20 bpm SpO2: 92% Tempera ture: 36.9 (C) / 98.4 (F) Weight: 232 lbs 02/01/2017 Blood Pressure 1: 146/64 Code: 8480-6 BMI: 30.7 Code: 51627-3 Heart Rate 1: 76 bpm Height: 6' Respiratory Rate: 20 bpm SpO2: 95% Tempera ture: 36.8 (C) / 98.2 (F) Weight: 226 lbs 01/29/2017 Blood Pressure 1: 146/78 Code: 8480-6 Heart Rate 1: 84 bpm Respiratory Rate: 20 bpm SpO2: 96% Temperature: 36.1 (C) / 97.0 (F) We ight: 226 lbs 12/21/2016 Blood Pressure 1: 126/60 Code: 8480-6 BMI: 30.8 Code: 82935-9 Heart Rate 1: 88 bpm Height: 6' Respiratory Rate: 22 bpm SpO2: 94% Tempera ture: 36.7 (C) / 98.0 (F) Weight: 227 lbs 12/14/2016 Blood Pressure 1: 126/70 Code: 8480-6 BMI: 29.8 Code: 64558-2 Heart Rate 1: 92 bpm Height: 6' Respiratory Rate: 22 bpm SpO2: 93% Tempera ture: 36.8 (C) / 98.2 (F) Weight: 220 lbs 11/14/2016 Blood Pressure 1: 128/62 Code: 8480-6 Heart Rate 1: 100 bpm Respiratory Rate: 20 bpm SpO2: 96% Temperature: 36.6 (C) / 97.8 (F) We ight: 220 lbs 10/31/2016 Blood Pressure 1: 142/60 Code: 8480-6 BMI: 30.1 Code: 61982-9 Heart Rate 1: 112 bpm Height: 6' Respiratory Rate: 24 bpm SpO2: 93% Tempera ture: 37.1 (C) / 98.7 (F) Weight: 222 lbs 10/03/2016 Blood Pressure 1: 136/78 Code: 8480-6 Heart Rate 1: 106 bpm Respiratory Rate: 24 bpm SpO2: 93% Temperature: 36.6 (C) / 97.8 (F) We ight: 221 lbs 09/04/2016 Blood Pressure 1: 112/44 Code: 8480-6 BMI: 30.1 Code: 99957-5 Heart Rate 1: 90 bpm Height: 6' Respiratory Rate: 20 bpm SpO2: 93% Tempera ture: 36.6 (C) / 97.9 (F) Weight: 222 lbs 08/22/2016 Blood Pressure 1: 142/68 Code: 8480-6 BMI: 30.4 Code: 33838-2 Heart Rate 1: 100 bpm Height: 6' Respiratory Rate: 24 bpm SpO2: 93% Tempera ture: 36.7 (C) / 98.1 (F) Weight: 224 lbs 08/10/2016 Blood Pressure 1: 134/60 Code: 8480-6 BMI: 30.2 Code: 70130-3 Heart Rate 1: 76 bpm Height: 6' [...] 1: 122/72 Code: 8480-6 BMI: 30.7 Code: 28301-2 Heart Rate 1: 96 bpm Height: 6' Respiratory Rate: 22 bpm SpO2: 96% Tempera ture: 35.9 (C) / 96.7 (F) Weight: 226 lbs 04/03/2016 Blood Pressure 1: 146/64 Code: 8480-6 BMI: 30.8 Code: 02544-5 Heart Rate 1: 76 bpm Height: 6' Respiratory Rate: 20 bpm Temperature: 36 .8 (C) / 98.2 (F) Weight: 227 lbs 03/02/2016 Blood Pressure 1: 148/60 Code: 8480-6 BMI: 31.1 Code: 73967-4 Heart Rate 1: 80 bpm Height: 6' Respiratory Rate: 22 bpm SpO2: 94% Tempera ture: 36.6 (C) / 97.8 (F) Weight: 229 lbs 02/17/2016 Blood Pressure 1: 132/60 Code: 8480-6 BMI: 31.3 Code: 31090-2 Heart Rate 1: 80 bpm Height: 6' Respiratory Rate: 20 bpm Temperature: 36 .9 (C) / 98.4 (F) Weight: 231 lbs 02/14/2016 Blood Pressure 1: 126/70 Code: 8480-6 BMI: 31.3 Code: 32832-8 Heart Rate 1: 80 bpm Height: 6' Respiratory Rate: 24 bpm SpO2: 95% Tempera ture: 36.9 (C) / 98.5 (F) Weight: 231 lbs 01/31/2016 Blood Pressure 1: 136/60 Code: 8480-6 Heart Rate 1: 76 bpm Respiratory Rate: 22 bpm Temperature: 37.0 (C) / 98.6 (F) Weight: 230 lbs 12/30/2015 Blood Pressure 1: 128/58 Code: 8480-6 BMI: 31.2 Code: 19002-1 Heart Rate 1: 80 bpm Height: 6' Respiratory Rate: 20 bpm Temperature: 36 .8 (C) / 98.2 (F) Weight: 230 lbs 12/16/2015 Blood Pressure 1: 122/60 Code: 8480-6 BMI: 32.0 Code: 75936-2 Heart Rate 1: 84 bpm Height: 6' Respiratory Rate: 24 bpm Temperature: 37 .1 (C) / 98.7 (F) Weight: 236 lbs 12/06/2015 Blood Pressure 1: 162/74 Code: 8480-6 BMI: 32.5 Code: 27508-8 Heart Rate 1: 90 bpm Height: 6' Respiratory Rate: 20 bpm SpO2: 96% Tempera ture: 36.4 (C) / 97.6 (F) Weight: 240 lbs 11/15/2015 Blood Pressure 1: 166/80 Code: 8480-6 BMI: 32.4 Code: 05198-7 Heart Rate 1: 92 bpm Height: 6' Respiratory Rate: 28 bpm Temperature: 36 .5 (C) / 97.7 (F) Weight: 239 lbs 10/05/2015 Blood Pressure 1: 146/76 Code: 8480-6 BMI: 32.4 Code: 19406-1 Heart Rate 1: 88 bpm Height: 6' Respiratory Rate: 28 bpm Temperature: 37 .1 (C) / 98.7 (F) Weight: 239 lbs 07/22/2015 Blood Pressure 1: 144/68 Code: 8480-6 BMI: 31.9 Code: 84496-0 Heart Rate 1: 88 bpm Height: 6' [...] 1: 142/64 Code: 8480-6 BMI: 32.1 Code: 61509-8 Heart Rate 1: 80 bpm Height: 6' Respiratory Rate: 18 bpm Temperature: 36 .4 (C) / 97.6 (F) Weight: 237 lbs 06/07/2015 Blood Pressure 1: 164/58 Code: 8480-6 BMI: 32.1 Code: 21151-3 Heart Rate 1: 88 bpm Height: 6' Respiratory Rate: 20 bpm Temperature: 36 .6 (C) / 97.9 (F) Weight: 237 lbs 06/03/2015 Blood Pressure 1: 152/64 Code: 8480-6 BMI: 32.1 Code: 83136-0 Heart Rate 1: 96 bpm Height: 6' Respiratory Rate: 20 bpm Temperature: 37 .4 (C) / 99.3 (F) Weight: 237 lbs 06/01/2015 Blood Pressure 1: 136/70 Code: 8480-6 BMI: 31.7 Code: 09462-5 Heart Rate 1: 72 bpm Height: 6' Respiratory Rate: 22 bpm SpO2: 94% Tempera ture: 36.6 (C) / 97.9 (F) Weight: 234 lbs 02/25/2015 Blood Pressure 1: 146/80 Code: 8480-6 BMI: 32.4 Code: 77948-1 Heart Rate 1: 84 bpm Height: 6' Respiratory Rate: 28 bpm Temperature: 36 .7 (C) / 98.0 (F) Weight: 239 lbs 10/27/2014 Blood Pressure 1: 168/70 Code: 8480-6 BMI: 32.0 Code: 70946-0 Heart Rate 1: 80 bpm Height: 6' Respiratory Rate: 30 bpm SpO2: 98% Tempera ture: 36.4 (C) / 97.6 (F) Weight: 236 lbs 10/21/2014 Blood Pressure 1: 152/58 Code: 8480-6 BMI: 32.1 Code: 79787-8 Heart Rate 1: 78 bpm Height: 6' Respiratory Rate: 20 bpm Temperature: 37 .8 (C) / 100.1 (F) Weight: 237 lbs 10/06/2014 Blood Pressure 1: 132/64 Code: 8480-6 BMI: 32.5 Code: 83665-0 Heart Rate 1: 88 bpm Height: 6' Respiratory Rate: 32 bpm SpO2: 94% Tempera ture: 36.8 (C) / 98.2 (F) Weight: 240 lbs 09/21/2014 Blood Pressure 1: 134/68 Code: 8480-6 BMI: 32.4 Code: 10841-9 Heart Rate 1: 96 bpm Height: 6' Respiratory Rate: 30 bpm Temperature: 36 .7 (C) / 98.1 (F) Weight: 239 lbs 09/08/2014 Blood Pressure 1: 128/74 Code: 8480-6 BMI: 32.4 Code: 60418-2 Heart Rate 1: 82 bpm Height: 6' Respiratory Rate: 28 bpm SpO2: 93% Tempera ture: 36.6 (C) / 97.8 (F) Weight: 239 lbs 09/02/2014 Blood Pressure 1: 164/78 Code: 8480-6 Heart Rate 1: 86 bpm Respiratory Rate: 22 bpm SpO2: 96% Temperature: 36.1 (C) / 97.0 (F) We ight: 239 lbs 08/10/2014 Blood Pressure 1: 152/60 Code: 8480-6 BMI: 32.8 Code: 09497-0 Heart Rate 1: 80 bpm Height: 6' [...] 1: 146/80 Code: 8480-6 BMI: 33.9 Code: 59471-0 Heart Rate 1: 80 bpm Height: 6' [...] 1: 148/78 Code: 8480-6 BMI: 30.5 Code: 96251-9 Heart Rate 1: 84 bpm Height: 6' Respiratory Rate: 28 bpm SpO2: 97% Tempera ture: 36.4 (C) / 97.5 (F) Weight: 225 lbs 08/06/2013 Blood Pressure 1: 158/70 Code: 8480-6 Heart Rate 1: 110 bpm Respiratory Rate: 22 bpm SpO2: 88% Temperature: 39.7 (C) / 103.4 (F) W eight: 07/16/2013 Blood Pressure 1: 148/82 Code: 8480-6 BMI: 31.9 Code: 86422-6 Heart Rate 1: 80 bpm Height: 6' Respiratory Rate: 20 bpm Temperature: 36 .6 (C) / 97.9 (F) Weight: 235 lbs 04/09/2013 Blood Pressure 1: 142/78 Code: 8480-6 BMI: 31.5 Code: 58637-3 Heart Rate 1: 88 bpm Height: 6' Respiratory Rate: 32 bpm SpO2: 95% Tempera ture: 37.0 (C) / 98.6 (F) Weight: 232 lbs 02/11/2013 Blood Pressure 1: 146/70 Code: 8480-6 Heart Rate 1: 88 bpm Respiratory Rate: 20 bpm Temperature: 36.8 (C) / 98.3 (F) Weight: 230 lbs 01/31/2013 Blood Pressure 1: 128/70 Code: 8480-6 BMI: 31.6 Code: 77872-4 Heart Rate 1: 84 bpm Height: 6' Respiratory Rate: 24 bpm SpO2: 92% Tempera ture: 36.7 (C) / 98.0 (F) Weight: 233 lbs 01/20/2013 Blood Pressure 1: 148/64 Code: 8480-6 BMI: 31.6 Code: 41111-7 Heart Rate 1: 68 bpm Height: 6' Temperature: 36.1 (C) / 97.0 (F) Weight: 233 lbs 12/19/2012 Blood Pressure 1: 128/68 Code: 8480-6 BMI: 32.0 Code: 12351-2 Heart Rate 1: 64 bpm Height: 6' Temperature: 36.7 (C) / 98.0 (F) Weight: 236 lbs 10/21/2012 Blood Pressure 1: 142/64 Code: 8480-6 BMI: 30.9 Code: 66350-1 Heart Rate 1: 74 bpm Height: 6' Temperature: 36.2 (C) / 97.1 (F) Weight: 228 lbs 09/18/2012 Blood Pressure 1: 126/60 Code: 8480-6 BMI: 31.3 Code: 73601-2 Heart Rate 1: 88 bpm Height: 6' Respiratory Rate: 20 bpm Temperature: 36 .5 (C) / 97.7 (F) Weight: 231 lbs 08/28/2012 Blood Pressure 1: 132/68 Code: 8480-6 BMI: 31.5 Code: 36439-4 Heart Rate 1: 92 bpm Height: 6' Respiratory Rate: 30 bpm SpO2: 94% Tempera ture: 37.1 (C) / 98.7 (F) Weight: 232 lbs 07/10/2012 Blood Pressure 1: 118/70 Code: 8480-6 BMI: 30.5 Code: 24447-1 Heart Rate 1: 72 bpm Height: 6' Respiratory Rate: 24 bpm SpO2: 96% Tempera ture: 36.7 (C) / 98.0 (F) Weight: 225 lbs 05/09/2012 Blood Pressure 1: 124/68 Code: 8480-6 BMI: 29.8 Code: 40150-7 Heart Rate 1: 72 bpm Height: 6' Respiratory Rate: 20 bpm Temperature: 36 .8 (C) / 98.2 (F) Weight: 220 lbs 10/02/2011 Blood Pressure 1: 140/82 Code: 8480-6 BMI: 30.7 Code: 59606-8 Heart Rate 1: 68 bpm Height: 6' Temperature: 36.7 (C) / 98.0 (F) Weight: 226 lbs 08/07/2011 Blood Pressure 1: 122/68 Code: 8480-6 BMI: 30.5 Code: 75895-4 Heart Rate 1: 72 bpm Height: 6' [...] 1: 140/78 Code: 8480-6 BMI: 31.9 Code: 79203-1 Heart Rate 1: 84 bpm Height: 6' Temperature: 36.6 (C) / 97.8 (F) Weight: 235 lbs 12/22/2009 Blood Pressure 1: 140/74 Code: 8480-6 BMI: 31.9 Code: 37664-8 Heart Rate 1: 94 bpm Height: 6' SpO2: 92% Temperature: 35.7 (C) / 96.2 (F) Weight: 235 lbs 12/13/2009 Blood Pressure 1: 146/80 Code: 8480-6 BMI: 33.0 Code: 93377-8 Heart Rate 1: 86 bpm Height: 6' [...] shot follow up 05/08/2019 follow up 04/07/2019 [facility] dizziness 03/24/2019 dizziness 03/21/2019 sore throat 03/13/2019 Patient finished zit hromax last night and has one dose of prednisone left follow up 03/10/2019 ER fwup---patient cu rrently taking zithromax, prednisone and breathing treatments every two hours spasms/spasticity 02/26/2019 follow up 02/13/2019 follow up 01/14/2019 [facility] follow up 12/25/2018 cough [...] up 07/02/2017 Patient recently ariel campos on [facility], but never picked up. He was also given prednisone/Zpack on 06/16/17 from walk in clinic. Patient is also in consult with Dr Benjamin. patient dc'd from hospital last week and reports that he is still taking the antibiotic that was prescribed to him (augmentin) and finished out the prednisone. 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 follow up 05/29/2017 Discuss Low Back [...] nightly. Patient has just been discharged from [place] with Pneumonia. Currently on Levaquin once daily. [...] would like evaluated follow up 06/13/[facility] COPD w/exac 06/01/2016 Patient states chest tightness, shortness of breath, and fatigue have worsened in the last 2-3 weeks with exertion. otalgia 04/26/2016 cerumen 04/05/2016 Patient has been maximiliano ing ear drops follow up 04/03/2016 2mo fwup follow up 03/13/2016 Patient here for [facility] on medication education for insulin use [...] 02/25/2015 3mo fwup follow up 10/27/2014 [facility] cough 10/21/2014 follow up 10/06/2014 follow up 09/21/2014 [facility] follow up 09/08/2014 [facility] cough 09/02/2014 well man exam (65+ years) 08/10/2014 lab draw 08/05/2014 flu shot follow up 05/05/2014 6wk fwup follow up 03/24/2014 2wk fw shortness of breath 03/10/2014 shoulder pain 12/16/2013 Request back brace w hen working/lifting---chiropractor had recommended he get one to wear shortness of breath 10/09/2013 cough 09/18/2013 follow up 08/13/2013 [facility] cough 08/06/2013 follow up [...] 12/13/2009 Encounters Encounter Performer Location Codes Date ([id number]) OFFICE/OUTPATIENT VISIT EST Diagnosis: Chronic obstructive pulmonary disease, unspecified[ICD10: J44.9] Lita BARAKAT [facility] CPT-4: 99006 02/04/2020 ([id number]) OFFICE/OUTPATIENT VISIT EST Diagnosis: Chronic obstructive pulmonary disease with (acute) exacerbation[ICD10: J44.1] Lita Ramirez [facility] CPT- 4: 14132 12/25/2019 ([id number]) OFFICE/OUTPATIENT VISIT EST Diagnosis: Noncompliance with diabetes treatment[ICD10: Z91.19] Diagnosis: Insomnia[ICD10: G47.00] Diagnosis: Pain in right knee[ICD10: M25.561] Lita Barakat [facility] CPT-4: 62240 12/22/2019 ([id number]) OFFICE/OUTPATIENT VISIT EST Diagnosis: Chronic respiratory failure with hypercapnia[ICD10: J96.12] Diagnosis: Chronic airway obstruction, not elsewhere classified[ICD10: J44.9] Diagnosis: Basal cell carcinoma, face[ICD10: C44.310] [facility] CPT-[facility]: 62870 11/12/2019 ([id number]) OFFICE/OUTPATIENT VISIT EST Diagnosis: Chronic obstructive pulmonary disease, unspecified[ICD10: J44.9] Diagnosis: Right thyroid nodule[ICD10: E04.1] Lita [facility] CPT-4: 16622 09/11/2019 ([id number]) OFFICE/OUTPATIENT VISIT EST Diagnosis: Chronic bronchitis[ICD10: J42] 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] Diagnosis: FLU VACCINE[ICD10: Z23] Lita [facility] CPT-4: 95735 08/07/2019 ([id number]) OFFICE/OUTPATIENT VISIT EST Diagnosis: Chronic obstructive pulmonary disease with (acute) exacerbation[ICD10: J44.1] Autumn [facility] CPT- 4: 77204 07/14/2019 ([id number]) OFFICE/OUTPATIENT VISIT EST Diagnosis: Primary insomnia[ICD10: F51.01] Diagnosis: Dyspepsia and other specified disorders of function of stomach[ICD10: K31.89] Lita [facility] CPT-4: 00165 07/01/2019 ([id number]) OFFICE/OUTPATIENT VISIT EST Diagnosis: Epigastric pain[ICD10: R10.13] Diagnosis: Nausea[ICD10: R11.0] Diagnosis: Weight loss[ICD10: R63.4] [facility] 17120 06/24/2019 ([id number]) OFFICE/OUTPATIENT VISIT EST Diagnosis: Chronic obstructive pulmonary disease, unspecified[ICD10: J44.9] Diagnosis: Chronic insomnia[ICD10: F51.04] Diagnosis: Anemia[ICD10: D64.9] Diagnosis: Diplopia[ICD10: H53.2] Diagnosis: [place][ICD10: F30.9] Lita [facility] CPT-4: 09384 06/17/2019 ([id number]) NURSE/OUTPATIENT VISIT EST Diagnosis: Vitamin B12 deficiency anemia, unspecified[ICD10: D51.9] Lita BARAKAT DO [facility] CPT-4: 03642 06/10/2019 ([id number]) NURSE/OUTPATIENT VISIT EST Diagnosis: Vitamin B12 deficiency anemia, unspecified[ICD10: D51.9] Lita BARAKAT DO [facility] CPT-4: 80069 06/02/2019 ([id number]) NURSE/OUTPATIENT VISIT EST Diagnosis: Vitamin B12 deficiency anemia, unspecified[ICD10: D51.9] Lita BARAKAT DO [facility] CPT-4: 60597 05/27/2019 ([id number]) NURSE/OUTPATIENT VISIT EST Diagnosis: Vitamin B12 deficiency anemia, unspecified[ICD10: D51.9] Lita BARAKAT DO [facility] CPT-4: 50476 05/12/2019 ([id number]) OFFICE/OUTPATIENT VISIT EST Diagnosis: Restless legs syndrome[ICD10: G25.81] Diagnosis: Primary insomnia[ICD10: F51.01] Diagnosis: Anemia, unspecified[ICD10: D64.9] Diagnosis: Type 2 diabetes mellitus with hyperglycemia[ICD10: E11.65] Diagnosis: Vitamin D deficiency, unspecified[ICD10: E55.9] Lita BARAKAT DO [facility] CPT-4: 56080 05/08/2019 ([id number]) OFFICE/OUTPATIENT VISIT EST Diagnosis: Pain in right knee[ICD10: M25.561] Diagnosis: Restless legs syndrome[ICD10: G25.81] Diagnosis: Insomnia, unspecified[ICD10: G47.00] Lita BARAKAT DO [facility] CPT-4: 18458 04/07/2019 ([id number]) NO CHARGE Diagnosis: Chronic obstructive pulmonary disease with (acute) exacerbation[ICD10: J44.1] Diagnosis: Dizziness and giddiness[ICD10: R42] Diagnosis: Generalized anxiety disorder[ICD10: F41.1] Autumn BARAKAT DO [facility] CPT-4: 29366 03/24/2019 ([id number]) OFFICE/OUTPATIENT VISIT EST Diagnosis: Chronic obstructive pulmonary disease with (acute) exacerbation[ICD10: J44.1] Diagnosis: Dizziness and giddiness[ICD10: R42] Autumn BARAKAT DO [facility] CPT-4: 90476 03/21/2019 ([id number]) OFFICE/OUTPATIENT VISIT EST Diagnosis: Candidal stomatitis[ICD10: B37.0] Lita BARAKAT DO [facility] CPT-4: 22895 03/13/2019 ([id number]) OFFICE/OUTPATIENT VISIT EST Diagnosis: Chronic obstructive pulmonary disease with acute lower respiratory infection[ICD10: J44.0] Diagnosis: Restless legs syndrome[ICD10: G25.81] Lita BARAKAT DO [facility] CPT-4: 85134 03/10/2019 ([id number]) OFFICE/OUTPATIENT VISIT EST Diagnosis: Restless legs syndrome[ICD10: G25.81] Lita BARAKAT [facility] CPT-4: 59680 02/26/2019 ([id number]) OFFICE/OUTPATIENT VISIT EST Diagnosis: Primary insomnia[ICD10: F51.01] Diagnosis: Chronic obstructive pulmonary disease, unspecified[ICD10: J44.9] Lita BARAKAT DO [facility] CPT-4: 07109 02/13/2019 ([id number]) OFFICE/OUTPATIENT VISIT EST Diagnosis: Chronic obstructive pulmonary disease, unspecified[ICD10: J44.9] Diagnosis: Chronic respiratory failure with hypoxia[ICD10: J96.11] Diagnosis: Chronic respiratory failure with hypercapnia[ICD10: J96.12] Lita BARAKAT DO [facility] CPT-4: 46130 01/14/2019 ([id number]) OFFICE/OUTPATIENT VISIT EST Diagnosis: Chronic respiratory failure with hypoxia[ICD10: J96.11] Diagnosis: Patient's noncompliance with other medical treatment and regimen[ICD10: Z91.19] Diagnosis: Chronic obstructive pulmonary disease with (acute) exacerbation[ICD10: J44.1] Lita BARAKAT [facility] CPT- 4: 14976 12/25/2018 ([id number]) OFFICE/OUTPATIENT VISIT EST Diagnosis: Essential (primary) hypertension[ICD10: I10] Diagnosis: Type 2 diabetes mellitus with hyperglycemia[ICD10: E11.65] Diagnosis: Hypothyroidism, unspecified[ICD10: E03.9] Diagnosis: Hyperlipidemia, unspecified[ICD10: E78.5] Diagnosis: Acute recurrent maxillary sinusitis[ICD10: J01.01] Ines Lavonne ALYLINE DonovanFerdinand [facility] CPT-4: 60347 12/09/2018 ([id number]) OFFICE/OUTPATIENT VISIT EST Diagnosis: Candidal stomatitis[ICD10: B37.0] Lita Farnsworth DonovanFerdinand [facility] CPT-4: 46247 12/05/2018 ([id number]) OFFICE/OUTPATIENT VISIT EST Diagnosis: Acute recurrent sinusitis, unspecified[ICD10: J01.91] Diagnosis: Pain in right knee[ICD10: M25.561] Lita GONZALES DonovanFerdinand [facility] CPT-4: 77302 10/23/2018 ([id number]) OFFICE/OUTPATIENT VISIT EST Diagnosis: Restless legs syndrome[ICD10: G25.81] Diagnosis: Basal cell carcinoma of skin of scalp and neck[ICD10: C44.41] Lita Gianniirina CRAWFORD DonovanFerdinand [facility] CPT-4: 43750 08/21/2018 ([id number]) OFFICE/OUTPATIENT VISIT EST Diagnosis: Chronic obstructive pulmonary disease with acute lower respiratory infection[ICD10: J44.0] Diagnosis: Restless legs syndrome[ICD10: G25.81] Lita TRAN DonovanFerdinand [facility] CPT-4: 29887 08/07/2018 ([id number]) OFFICE/OUTPATIENT VISIT EST Diagnosis: Chronic obstructive pulmonary disease with acute lower respiratory infection[ICD10: J44.0] Lita CRAWFORD DonovanFerdinand [facility] CPT-4: 38158 05/23/2018 ([id number]) OFFICE/OUTPATIENT VISIT EST Diagnosis: Candidal stomatitis[ICD10: B37.0] Lita Farnsworth DonovanFerdinand [facility] CPT-4: 59068 05/02/2018 ([id number]) OFFICE/OUTPATIENT VISIT EST Diagnosis: Candidal stomatitis[ICD10: B37.0] Diagnosis: Other retention of urine[ICD10: R33.8] Diagnosis: Chronic obstructive pulmonary disease with acute lower respiratory infection[ICD10: J44.0] Autumn BARAKAT DO [facility] CPT-4: 39870 04/29/2018 ([id number]) OFFICE/OUTPATIENT VISIT EST Diagnosis: Chronic obstructive pulmonary disease with acute lower respiratory infection[ICD10: J44.0] Lita BARAKAT DO [facility] CPT-4: 92321 04/22/2018 ([id number]) OFFICE/OUTPATIENT VISIT EST Diagnosis: Unilateral primary osteoarthritis, right knee[ICD10: M17.11] Diagnosis: Squamous cell carcinoma of skin, unspecified[ICD10: C44.92] Lita BARAKAT DO [facility] CPT-4: 87602 01/28/2018 ([id number]) OFFICE/OUTPATIENT VISIT EST Diagnosis: Pain in right knee[ICD10: M25.561] Diagnosis: 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] Lita BARAKAT DO [facility] CPT-4: 38309 01/23/2018 ([id number]) OFFICE/OUTPATIENT VISIT EST Diagnosis: Urinary tract infection, site not specified[ICD10: N39.0] Diagnosis: Chronic obstructive pulmonary disease with acute lower respiratory infection[ICD10: J44.0] Lita BARAKAT DO [facility] CPT-4: 77466 01/02/2018 ([id number]) OFFICE/OUTPATIENT VISIT EST Diagnosis: Chronic obstructive pulmonary disease with (acute) exacerbation[ICD10: J44.1] Autumn BARAKAT DO [facility] CPT- 4: 42968 12/28/2017 ([id number]) OFFICE/OUTPATIENT VISIT EST Diagnosis: Acute bronchitis, unspecified[ICD10: J20.9] Autumn BARAKAT DO [facility] CPT-4: 75281 12/21/2017 ([id number]) OFFICE/OUTPATIENT VISIT EST Diagnosis: Chronic obstructive pulmonary disease with acute lower respiratory infection[ICD10: J44.0] Diagnosis: Pain in right knee[ICD10: M25.561] Autumn BARAKAT [facility] CPT-4: 88510 12/17/2017 ([id number]) OFFICE/OUTPATIENT VISIT EST Diagnosis: Laceration without foreign body of right hand, sequela[ICD10: S61.411S] Diagnosis: Restless legs syndrome[ICD10: G25.81] Lita Barakat ALIZEONIEL AGNE Ashley [facility] CPT-4: 18420 10/17/2017 OFFICE/OUTPATIENT VISIT EST Diagnosis: Chronic obstructive pulmonary disease with acute lower respiratory infection[ICD10: J44.0] Autumn BARAKAT [facility] CPT-4: 81425 08/02/2017 ([id number]) OFFICE/OUTPATIENT VISIT EST Diagnosis: PNEUMOCOCCAL VACCINE[ICD10: Z23] Lita [facility] CPT-4: 30048 07/24/2017 OFFICE/OUTPATIENT VISIT EST Diagnosis: Chronic obstructive pulmonary disease with (acute) exacerbation[ICD10: J44.1] Autumn BARAKAT [facility] CPT- 4: 88543 07/02/2017 OFFICE/OUTPATIENT VISIT EST Diagnosis: Low back pain[ICD10: M54.5] Ruchi Ramirez Filiberto BRANDIN [facility] CPT-4: 54515 05/29/2017 ([id number]) OFFICE/OUTPATIENT VISIT EST Diagnosis: Essential (primary) hypertension[ICD10: I10] Diagnosis: Hypothyroidism, unspecified[ICD10: E03.9] Diagnosis: Dizziness and giddiness[ICD10: R42] Diagnosis: Other abnormality of red blood cells[ICD10: R71.8] Diagnosis: Contracture of muscle, unspecified site[ICD10: M62.40] Lita Yuval ALYLINE DonovanFerdinand [facility] CPT-4: 94918 04/17/2017 OFFICE/OUTPATIENT VISIT EST Diagnosis: Pain in left shoulder[ICD10: M25.512] uRchi TRAN DonovanFerdinand [facility] CPT-4: 97307 01/29/2017 ([id number]) OFFICE/OUTPATIENT VISIT EST Diagnosis: Anemia, unspecified[ICD10: D64.9] Lita BARAKAT DO [facility] CPT-4: 95467 12/27/2016 ([id number]) OFFICE/OUTPATIENT VISIT EST Diagnosis: Other fatigue[ICD10: R53.83] Diagnosis: Other iron deficiency anemias[ICD10: D50.8] Lita BARAKAT DO [facility] CPT-4: 63846 12/21/2016 ([id number]) OFFICE/OUTPATIENT VISIT EST Diagnosis: Anemia, unspecified[ICD10: D64.9] Diagnosis: Other fatigue[ICD10: R53.83] Diagnosis: Restless legs syndrome[ICD10: G25.81] Lita BARAKAT DO [facility] CPT-4: 42859 12/14/2016 ([id number]) OFFICE/OUTPATIENT VISIT EST Diagnosis: Anemia, unspecified[ICD10: D64.9] Diagnosis: Other abnormality of red blood cells[ICD10: R71.8] Lita BARAKAT DO [facility] CPT-4: 90318 12/12/2016 ([id number]) OFFICE/OUTPATIENT VISIT EST Diagnosis: Pneumonia, unspecified organism[ICD10: J18.9] Diagnosis: Restless legs syndrome[ICD10: G25.81] Magda BARAKAT DO [facility] CPT-4: 08277 11/14/2016 ([id number]) OFFICE/OUTPATIENT VISIT EST Diagnosis: Candidal stomatitis[ICD10: B37.0] Lita BARAKAT DO [facility] CPT-4: 17119 10/31/2016 ([id number]) OFFICE/OUTPATIENT VISIT EST Diagnosis: Acute upper respiratory infection, unspecified[ICD10: J06.9] Diagnosis: Personal history of pneumonia (recurrent)[ICD10: Z87.01] Magda BARAKAT DO [facility] CPT-4: 61118 10/03/2016 ([id number]) OFFICE/OUTPATIENT VISIT EST Diagnosis: Restless legs syndrome[ICD10: G25.81] Diagnosis: Insomnia, unspecified[ICD10: G47.00] Magda [facility] CPT-4: 76810 09/04/2016 ([id number]) OFFICE/OUTPATIENT VISIT EST Diagnosis: Restless legs syndrome[ICD10: G25.81] Diagnosis: Primary insomnia[ICD10: F51.01] Lita BARAKAT [facility] CPT-4: 85668 08/10/2016 OFFICE/OUTPATIENT VISIT EST Diagnosis: Toxic gastroenteritis and colitis[ICD10: K52.1] Diagnosis: Dizziness and giddiness[ICD10: R42] Diagnosis: Headache[ICD10: R51] Diagnosis: Restless legs syndrome[ICD10: G25.81] Lita [facility] CPT-4: 58282 07/06/2016 ([id number]) OFFICE/OUTPATIENT VISIT EST Diagnosis: Chest pain, unspecified[ICD10: R07.9] Diagnosis: Dyspnea, unspecified[ICD10: R06.00] Magda [facility] CPT-4: 36283 06/22/2016 ([id number]) OFFICE/OUTPATIENT VISIT EST 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] Diagnosis: PNEUMOCOCCAL VACCINE[ICD10: Z23] Diagnosis: FLU VACCINE[ICD10: Z23] Lita [facility] CPT-4: 71414 06/13/2016 ([id number]) OFFICE/OUTPATIENT VISIT EST Diagnosis: Chest pain, unspecified[ICD10: R07.9] Diagnosis: Other forms of dyspnea[ICD10: R06.09] Diagnosis: Shortness of breath[ICD10: R06.02] Diagnosis: Other fatigue[ICD10: R53.83] Magda [facility] CPT-4: 92238 06/01/2016 ([id number]) OFFICE/OUTPATIENT VISIT EST Diagnosis: Unspecified hearing loss, left ear[ICD10: H91.92] Diagnosis: Other specified disorders of Eustachian tube, left ear[ICD10: H69.82] Magda Navneet [facility] CPT-4: 94286 11/2015 ([id number]) OFFICE/OUTPATIENT VISIT EST Diagnosis: Impacted cerumen, bilateral[ICD10: H61.23] Diagnosis: DM W/O COMPLICATION TYPE I, 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: E10.9] Diagnosis: Generalized anxiety disorder[ICD10: F41.1] Lita Gianniirina LITA Ashley BARAKAT DO [facility] CPT-4: 55245 04/03/2016 ([id number]) OFFICE/OUTPATIENT VISIT EST Diagnosis: 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] Lita CRAWFORD DonovanFerdinand [facility] CPT - 4: 07859 03/13/2016 ([id number]) OFFICE/OUTPATIENT VISIT EST Diagnosis: Type 2 diabetes mellitus with hyperglycemia[ICD10: E11.65] Diagnosis: Hyperlipidemia, unspecified[ICD10: E78.5] Diagnosis: Essential (primary) hypertension[ICD10: I10] Diagnosis: Chronic obstructive pulmonary disease, unspecified[ICD10: J44.9] Diagnosis: Testicular hypofunction[ICD10: E29.1] Diagnosis: Male erectile dysfunction, unspecified[ICD10: N52.9] Diagnosis: Anemia, unspecified[ICD10: D64.9] Lita Farnsworth DonovanFerdinand Y[facility]VAL [facility] CPT-4: 18713 03/06/2016 ([id number]) OFFICE/OUTPATIENT VISIT EST Diagnosis: Type 2 diabetes mellitus with hyperglycemia[ICD10: E11.65] Diagnosis: Hyperlipidemia, unspecified[ICD10: E78.5] Diagnosis: Chronic obstructive pulmonary disease, unspecified[ICD10: J44.9] Diagnosis: Male erectile dysfunction, unspecified[ICD10: N52.9] Lita CRAWFORD DonovanFerdinand [facility] CPT-4: 68336 03/02/2016 ([id number]) OFFICE/OUTPATIENT VISIT EST Diagnosis: Pain in right foot[ICD10: M79.671] Magda GONZALES DonovanFerdinand Y[facility]VAL [facility] CPT-4: 35122 02/14/2016 OFFICE/OUTPATIENT VISIT EST Diagnosis: Generalized anxiety disorder[ICD10: F41.1] Lita CRAWFORD DonovanFerdinand [facility] CPT-4: 55330 01/31/2016 ([id number]) OFFICE/OUTPATIENT VISIT EST Diagnosis: Generalized anxiety disorder[ICD10: F41.1] Lita BARAKAT Voy[facility] CPT-4: 17713 12/30/2015 ([id number]) OFFICE/OUTPATIENT VISIT EST Diagnosis: Localized swelling, mass and lump, neck[ICD10: R22.1] Lita BARAKAT DO [facility] CPT-4: 43834 12/16/2015 OFFICE/OUTPATIENT VISIT EST Diagnosis: Localized enlarged lymph nodes[ICD10: R59.0] Diagnosis: Otalgia, left ear[ICD10: H92.02] Stephanie BARAKAT DO [facility] CPT-4: 77245 12/06/2015 OFFICE/OUTPATIENT VISIT EST Diagnosis: Localized enlarged lymph nodes[ICD10: R59.0] Diagnosis: Squamous cell carcinoma of skin, unspecified[ICD10: C44.92] Diagnosis: Actinic keratosis[ICD10: L57.0] Stephanie BARAKAT DO [facility] CPT-4: 07638 11/15/2015 OFFICE/OUTPATIENT VISIT EST Diagnosis: Cellulitis of left lower limb[ICD10: L03.116] Diagnosis: Encounter for examination and observation for other specified reasons[ICD10: Z04.8] Diagnosis: Chronic obstructive pulmonary disease, unspecified[ICD10: J44.9] Stephanie BARAKAT DO [facility] CPT-4: 19123 07/22/2015 OFFICE/OUTPATIENT VISIT EST Diagnosis: Other specified joint disorders, left knee[ICD10: M25.862] Diagnosis: Cellulitis of left lower limb[ICD10: L03.116] Diagnosis: Other fatigue[ICD10: R53.83] Diagnosis: Hyperlipidemia, unspecified[ICD10: E78.5] Stephanie BARAKAT DO [facility] CPT-4: 26116 07/01/2015 OFFICE/OUTPATIENT VISIT EST Diagnosis: Pain in left knee[ICD10: M25.562] Diagnosis: Cellulitis of left lower limb[ICD10: L03.116] Diagnosis: Other specified joint disorders, left knee[ICD10: M25.862] Stephanie VanBecelaere LITA S. ORENDER DO [facility] CPT-4: 07061 06/28/2015 OFFICE/OUTPATIENT VISIT EST Diagnosis: PREPATELLAR BURSITIS[ICD9: 726.65] Diagnosis: Cellulitis of knee, left[ICD9: 682.6] Stephanie BARAKAT DO [facility] CPT-4: 64310 06/09/2015 ([id number]) OFFICE/OUTPATIENT VISIT EST Diagnosis: PREPATELLAR BURSITIS[ICD9: 726.65] Diagnosis: Cellulitis of knee, left[ICD9: 682.6] Lita BARAKAT DO [facility] CPT-4: 47074 06/07/2015 OFFICE/OUTPATIENT VISIT EST Diagnosis: Cellulitis of knee, left[ICD9: 682.6] Stephanie BARAKAT DO [facility] CPT-4: 81919 06/03/2015 ([id number]) OFFICE/OUTPATIENT VISIT EST Diagnosis: DM W/O COMPLICATION TYPE II, UNCONTROLLED[ICD9: 250.02] Diagnosis: COPD[ICD9: 496] Lita BARAKAT [facility] CPT- 4: 11850 06/01/2015 ([id number]) OFFICE/OUTPATIENT VISIT EST Diagnosis: COPD[ICD9: 496] Diagnosis: DYSPNEA[ICD9: 786.09] Diagnosis: DM W/O COMPLICATION TYPE II, UNCONTROLLED[ICD9: 250.02] Diagnosis: Actinic keratosis[ICD9: 702.0] Lita BARAKAT [facility] CPT-4: 77119 02/25/2015 ([id number]) OFFICE/OUTPATIENT VISIT EST Diagnosis: ASTHMA NOS[ICD9: 493.90] Diagnosis: COPD[ICD9: 496] Diagnosis: DM W/O COMPLICATION TYPE II, UNCONTROLLED[ICD9: 250.02] Lita BARAKAT DO [facility] CPT-4: 72279 10/27/2014 OFFICE/OUTPATIENT VISIT EST Diagnosis: DYSPNEA[ICD9: 786.09] Diagnosis: COPD[ICD9: 496] Lita BARAKAT [facility] CPT- 4: 19859 10/06/2014 ([id number]) OFFICE/OUTPATIENT VISIT EST Diagnosis: PNEUMONIA, ORGANISM[ICD9: 486] Diagnosis: COPD[ICD9: 496] Diagnosis: DYSPNEA[ICD9: 786.09] Lita BARAKAT DO [facility] CPT-4: 97871 09/21/2014 OFFICE/OUTPATIENT VISIT EST Diagnosis: PNEUMONIA, ORGANISM[ICD9: 486] Diagnosis: DYSPNEA[ICD9: 786.09] Diagnosis: COUGH[ICD9: 786.2] Stephanie BARAKAT DO [facility] CPT-4: 91155 09/08/2014 OFFICE/OUTPATIENT VISIT EST Diagnosis: COPD with exacerbation[ICD9: 491.21] Diagnosis: COUGH[ICD9: 786.2] Diagnosis: DYSPNEA[ICD9: 786.09] Stephanie BARAKAT DO [facility] CPT-4: 58141 09/02/2014 ([id number]) OFFICE/OUTPATIENT VISIT EST Diagnosis: DM W/O COMPLICATION TYPE II, UNCONTROLLED[ICD9: 250.02] Lita BARAKAT [facility] CPT-4: 82672 08/27/2014 ([id number]) OFFICE/OUTPATIENT VISIT EST Diagnosis: DM W/O COMPLICATION TYPE II, UNCONTROLLED[ICD9: 250.02] Diagnosis: HYPERLIPIDEMIA NEC/NOS[ICD9: 272.4] Diagnosis: HYPERTENSION[ICD9: 401.9] Diagnosis: COPD[ICD9: 496] Diagnosis: FLU VACCINE[ICD10: Z23] Lita PABLO [facility] CPT-4: 39228 08/05/2014 ([id number]) OFFICE/OUTPATIENT VISIT EST Diagnosis: COPD[ICD9: 496] Diagnosis: Lumbar degenerative disc disease[ICD9: 722.52] Lita BARAKAT DO [facility] CPT-4: 70631 05/05/2014 OFFICE/OUTPATIENT VISIT EST Diagnosis: DYSPNEA[ICD9: 786.09] Diagnosis: COPD[ICD9: 496] Lita BARAKAT [facility] CPT- 4: 40848 03/24/2014 ([id number]) OFFICE/OUTPATIENT VISIT EST Diagnosis: COPD[ICD9: 496] Diagnosis: DYSPNEA[ICD9: 786.09] Lita [facility] CPT-4: 58026 03/10/2014 OFFICE/OUTPATIENT VISIT EST Diagnosis: Subacromial bursitis[ICD9: 726.19] Diagnosis: Chronic low back pain[ICD9: 724.2] Diagnosis: Lumbar degenerative disc disease[ICD9: 722.52] Lita ALYLINE DonovanFerdinand [facility] CPT-4: 19177 12/16/2013 ([id number]) OFFICE/OUTPATIENT VISIT EST Diagnosis: PHARYNGITIS, ACUTE[ICD9: 462] Diagnosis: COPD[ICD9: 496] Lita ALYLINE DonovanFerdinand [facility] CPT- 4: 01767 10/09/2013 OFFICE/OUTPATIENT VISIT EST Diagnosis: COPD[ICD9: 496] Diagnosis: Acute exacerbation of chronic obstructive pulmonary disease (COPD)[ICD9: 491.21] Ruchi Buchanan LITA DonovanFerdinand [facility] CPT-4: 94624 09/18/2013 ([id number]) OFFICE/OUTPATIENT VISIT EST Diagnosis: PNEUMONIA, ORGANISM[ICD9: 486] Diagnosis: DM W/O COMPLICATION TYPE II[ICD9: 250.00] Liat ALYLINE DonovanFerdinand [facility] CPT-4: 76436 08/13/2013 ([id number]) OFFICE/OUTPATIENT VISIT EST Diagnosis: DM W/O COMPLICATION TYPE II, UNCONTROLLED[ICD9: 250.02] Diagnosis: HYPERLIPIDEMIA NEC/NOS[ICD9: 272.4] Diagnosis: HYPERTENSION[ICD9: 401.9] Diagnosis: DYSPNEA[ICD9: 786.09] Diagnosis: Family history of CABG[ICD9: V17.49] Litacarol ALY JESSICA Ashley [facility] CPT-4: 34437 07/16/2013 ([id number]) OFFICE/OUTPATIENT VISIT EST Diagnosis: DM W/O COMPLICATION TYPE II, UNCONTROLLED[ICD9: 250.02] Diagnosis: HYPERLIPIDEMIA NEC/NOS[ICD9: 272.4] Diagnosis: HYPERTENSION[ICD9: 401.9] [facility]ita [facility]: 60246 06/25/2013 OFFICE/OUTPATIENT VISIT EST Diagnosis: COUGH[ICD9: 786.2] Diagnosis: COPD[ICD9: 496] Kimberly BARAKAT [facility] CPT- 4: 57777 04/09/2013 ([id number]) OFFICE/OUTPATIENT VISIT EST Diagnosis: Muscle spasm[ICD9: 728.85] Diagnosis: ARTHRALGIA-MULTIPLE SITES[ICD9: 719.49] Lita Yuval [facility] CPT-4: 73845 02/11/2013 OFFICE/OUTPATIENT VISIT EST Diagnosis: COPD with exacerbation[ICD9: 491.21] Diagnosis: BRONCHITIS, ACUTE[ICD9: 466.0] Ruchi Buchanan LITA [facility] CPT-4: 79545 01/31/2013 OFFICE/OUTPATIENT VISIT EST Diagnosis: COUGH[ICD9: 786.2] Diagnosis: PHARYNGITIS, ACUTE[ICD9: 462] Diagnosis: SINUSITIS, ACUTE[ICD9: 461.9] Lita [facility] CPT-4: 99581 01/20/2013 OFFICE/OUTPATIENT VISIT EST Diagnosis: DIZZINESS/VERTIGO[ICD9: 780.4] [facility]: 48055 12/19/2012 OFFICE/OUTPATIENT VISIT EST Diagnosis: Skin lesion of left arm[ICD9: 709.9] Diagnosis: Otitis externa[ICD9: 380.10] Diagnosis: PHARYNGITIS, ACUTE[ICD9: 462] Lita Yuval [facility] CPT-4: 52275 10/21/2012 ([id number]) OFFICE/OUTPATIENT VISIT EST Diagnosis: DM W/O COMPLICATION TYPE II, UNCONTROLLED[ICD9: 250.02] Diagnosis: HYPERLIPIDEMIA NEC/NOS[ICD9: 272.4] Diagnosis: HYPERTENSION[ICD9: 401.9] Lita [facility]: 23479 09/19/2012 ([id number]) OFFICE/OUTPATIENT VISIT EST Diagnosis: DM W/O COMPLICATION TYPE II, UNCONTROLLED[ICD9: 250.02] Diagnosis: HYPERLIPIDEMIA NEC/NOS[ICD9: 272.4] Diagnosis: COPD[ICD9: 496] Lita BARAKAT DO [facility] CPT- 4: 97461 09/18/2012 ([id number]) OFFICE/OUTPATIENT VISIT EST Diagnosis: BRONCHITIS, ACUTE[ICD9: 466.0] Diagnosis: SINUSITIS, ACUTE[ICD9: 461.9] Lita BARAKAT DO [facility] CPT-4: 67731 08/28/2012 ([id number]) OFFICE/OUTPATIENT VISIT EST Diagnosis: COPD[ICD9: 496] Diagnosis: DYSPNEA[ICD9: 786.09] Diagnosis: VAC STREP PNEUMONIAE-FLU (Medicare)[ICD9: V06.6] Lita BARAKAT DO [facility] CPT-4: 05381 07/10/2012 ([id number]) OFFICE/OUTPATIENT VISIT EST Diagnosis: DM W/O COMPLICATION TYPE II, UNCONTROLLED[ICD9: 250.02] Diagnosis: HYPERTENSION[ICD9: 401.9] Diagnosis: HYPERLIPIDEMIA NEC/NOS[ICD9: 272.4] Diagnosis: DIZZINESS/VERTIGO[ICD9: 780.4] Lita BARAKAT Voy[facility] CPT-4: 93884 05/09/2012 ([id number]) OFFICE/OUTPATIENT VISIT EST Diagnosis: DM W/O COMPLICATION TYPE II, UNCONTROLLED[ICD9: 250.02] Diagnosis: HYPERLIPIDEMIA NEC/NOS[ICD9: 272.4] Diagnosis: HYPERTENSION[ICD9: 401.9] Diagnosis: MALAISE AND FATIGUE[ICD9: 780.79] Lita BARAKAT Voy[facility] CPT-4: 49216 05/06/2012 OFFICE/OUTPATIENT VISIT EST Diagnosis: COUGH[ICD9: 786.2] Diagnosis: SINUSITIS, ACUTE[ICD9: 461.9] Diagnosis: PHARYNGITIS, ACUTE[ICD9: 462] Lita BARAKAT DO [facility] CPT-4: 24659 10/02/2011 OFFICE/OUTPATIENT VISIT EST Diagnosis: DM W/O COMPLICATION TYPE II, UNCONTROLLED[ICD9: 250.02] Diagnosis: HYPERLIPIDEMIA NEC/NOS[ICD9: 272.4] Diagnosis: HYPERTENSION[ICD9: 401.9] Diagnosis: COPD[ICD9: 496] Lita VALERIO CPT- 4: 13911 08/07/2011 OFFICE/OUTPATIENT VISIT EST Lita [facility] CPT- 4: 20971 04/03/2011 ([id number]) OFFICE/OUTPATIENT VISIT EST Lita [facility]AC[facility]OS [facility] CPT-4: 84338 01/18/2011 ([id number]) OFFICE/OUTPATIENT VISIT EST Lita PALACIOS [facility] CPT-4: 44808 12/19/2010 ([id number]) OFFICE/OUTPATIENT VISIT, EST Lita CASTELLANOSNDER DO [facility] CPT-4: 04912 04/05/2010 ([id number]) OFFICE/OUTPATIENT VISIT, EST Lita HOLMAN SFerdinand [facility] CPT-4: 64171 01/13/2010 ([id number]) OFFICE/OUTPATIENT VISIT, EST Lita [facility]OLMAN [facility] CPT-4: 20315 12/23/2009 ([id number]) OFFICE/OUTPATIENT VISIT, EST Lita HOLMAN S. GIANNINDER DO [facility] CPT-4: 13999 12/22/2009 ([id number]) OFFICE/OUTPATIENT VISIT, EST Lita HOLMAN SFerdinand [facility] CPT-4: 09353 12/13/2009 Plan of Care Planned Activity Notes [...] : J44.1 12/25/2019 Appointment: Lita Barakat WPtel: [address] [place], [place] [phone] FOLLOW UP 12/25/2019 Patient Education: prednisone- [employer] Coupon 10421 [id number] https://www.[employer]/resources/getResource/61/[email or web address]-[email or web address] Completed 12/25/2019 Visit Diagnosis Plan: Noncompliance with [...] : M25.561 12/22/2019 Appointment: Lita Barakat WPtel: [id number] [facility] 12/22/2019 Patient Education: baclofen- [employer] Coupon [id number] https://www.[employer]/resources/getResource/61/dj5nt776-[email or web address] Completed 12/22/2019 Visit Diagnosis Plan: Chronic respiratory [...] : C44.310 11/12/2019 Appointment: Lita Barakat WPtel: [address] [place], [place] [phone] ACUTE ILLNESS 11/12/2019 Care Plan: Referral Order SNOMED-CT : 30 [id number] Pending 11/12/2019 Care Plan: Referral Order SNOMED-CT : 30 [id number] Pending 11/12/2019 Visit Diagnosis Plan: Right thyroid nodule Discussion: Check thyroid US ICD-9 : 241.0 ICD-10 : E04.1 09/11/2019 Visit Diagnosis Plan: Chronic obstructive pulmonary di sease, unspecified Discussion: Start Pulmonary Rehab Reviewed results of CT of chest ordered by pulmonology Follow Up: 3 months ICD-9 : 496 ICD-10 : J44.9 09/11/2019 Appointment: Lita Barakat WPtel: [address] [place], [place] [phone] MEDICATION REVIEW 09/11/2019 Care Plan: US EXAM OF HEAD AND NECK LOIN C : 67240-2 Pending 09/11/2019 Visit Diagnosis Plan: Chronic bronchitis Discussion: A ugmentin for 10 days ICD-9 : 491.9 ICD-10 : J42 08/07/2019 Appointment: Lita Barakat WPtel: [address] [place], [place] [phone] ACUTE ILLNESS 08/07/2019 Visit Diagnosis Plan: Chronic [...] : J44.1 07/14/2019 Appointment: Autumn Oneil [address] ACUTE ILLNESS 07/14/2019 Visit Diagnosis Plan: [...] : F51.01 07/01/2019 Appointment: Lita Barakat WPtel: [address] [place] [address] FOLLOW UP 07/01/2019 Care Plan: CT ABDOMEN W/O DYE LOINC : 36 103-0 Pending 07/01/2019 Care Plan: Referral Order SNOMED-CT : 30 [id number] Pending 07/01/2019 Visit Diagnosis Plan: Weight loss [...] : R10.13 06/24/2019 Appointment: Lita Barakat WPtel: [address] [place] [address] ACUTE ILLNESS 06/24/2019 Patient Education: Seroquel- [employer] Coupon [id number] https://www.[employer]/resources/getResource/61/[email or web address] Completed 06/24/2019 Patient Education: ondansetron HCl- [employer] Coupon [id number] https://www.[employer]/samplemd/resources/getResource/61/5409353g-[email or web address]-h2 Completed 06/24/2019 Care Plan: US EXAM ABDOM COMPLETE LOINC : 77228-2 Pending 06/24/2019 Visit Diagnosis Plan: Chronic insomnia [...] ICD-10 : H53.2 06/17/2019 Appointment: Lita Barakattel: [address] [place], [place] [phone] US FOLLOW UP 06/17/2019 Appointment: Lita Barakat WPtel: [address] [place], [place] [phone] US INJECTION 06/10/2019 Appointment: Lita Barakat WPtel: [address] [place], [place] [phone] US INJECTION 06/02/2019 Appointment: Lita Barakat WPtel: [address] [place], [place] [phone] US INJECTION 05/27/2019 Appointment: Lita Barakat WPtel: [address] [place], [place] [id number] [place] INJECTION 05/12/2019 Visit Diagnosis Plan: Anemia, [...] : E55.9 05/08/2019 Appointment: Lita Barakat WPtel: [address] [place], [place] [id number] FOLLOW UP 05/08/2019 Visit Diagnosis Plan: Pain in right knee Discussion: S top tramadol and tylenol q HS Trial of Hydrocodone 10/325mg po q HS Recheck 1month ICD-9 : 719.46 ICD-10 : M25.561 04/07/2019 Appointment: Lita Barakat WPtel: [address] [place], [place] [id number] Hospital Follow Up 04/07/2019 Visit Diagnosis Plan: [...] ICD-10 : F41.1 03/24/2019 Appointment: Autumn Oneil [address] [place] [address] ACUTE ILLNESS 03/24/2019 Patient Education: hydroxyzine HCl- [employer] [id number] Completed 03/24/2019 Patient Education: pantoprazole- [employer] [id number] Completed 03/24/2019 Visit Diagnosis Plan: Chronic obstructiv e pulmonary disease with (acute) exacerbation Discussion: 90 mg solumedrol given in of fice. patient's portable oxygen tank was empty. [id number] patient on importance of monitoring oxygen tank [...] ICD-10 : R42 03/21/2019 Appointment: Autumn Oneil [address] [place] [address] ACUTE ILLNESS 03/21/2019 Patient Education: ipratropium-albuterol- [employer] C taj [id number] [email or web address] Completed 03/21/2019 Visit Diagnosis Plan: Chronic obstructiv e pulmonary disease with (acute) exacerbation Discussion: Solumedrol now Use SVNs with duoneb at least q4hrs Patient is supposed to be on continuous oxygen but not wearing ICD-9 : 491.21 ICD-10 : J44.1 03/13/2019 Visit Diagnosis Plan: [place] stomatitis Discussion: Diflucan and Nystatin susp ICD-9 : 112.0 ICD-10 : B37.0 03/13/2019 Appointment: Lita Barakat WPtel: [address] [place] [address] ACUTE ILLNESS 03/13/2019 Patient Education: losartan- [employer] C[employer]on [id number] Completed 03/13/2019 Patient Education: nystatin- [employer] C[employer]on [id number] Completed 03/13/2019 Patient Education: fluconazole- [employer] C[employer]on [id number] Completed 03/13/2019 Visit Diagnosis Plan: Chronic obstructiv [...] : G25.81 03/10/2019 Appointment: Lita Barakat WPtel: [address] [place] [address] ACUTE ILLNESS 03/10/2019 Visit Diagnosis Plan: Restless legs syndrome Discussio n: Stop requip Increase sinemet to TID Add children's chewable MV with iron BID Add magnesium oxide 400mg daily Add Lyrica 75mg po q HS Stop trazadone Recheck 3 weeks Follow Up: 3 weeks ICD-9 : 333.94 ICD-10 : G25.81 02/26/2019 Appointment: Lita Barakat WPtel: [address] [place] [address] ACUTE ILLNESS 02/26/2019 Visit Diagnosis Plan: Primary insomnia Discussion: Tri al of doxepin 10-20mg po q HS prn sleep ICD-9 : 780.52 ICD-10 : F51.01 02/13/2019 Visit Diagnosis Plan: Chronic obstructive pulmonary di sease, unspecified Discussion: Stable Discussed trip to [place]--will get oxygen setup through [facility] ICD-9 : 496 ICD-10 : J44.9 02/13/2019 Appointment: Lita Barakat WPtel: [address] [place], [place] [phone] FOLLOW UP 02/13/2019 Patient Education: doxepin- [employer] Coupon [id number] https://www.[employer]/samplemd/resources/getResource/61/18z7o32y-14th-105j-2i Completed 02/13/2019 Appointment: Lita Barakat WPtel: [address] [place] [address] US CANCELED 01/20/2019 Visit Diagnosis Plan: Chronic obstructive pulmonary di marcello, unspecified Discussion: Stable on oxygen Given Symbicort samples Follow Up: 1 months ICD-9 : 496 ICD-10 : J44.9 01/14/2019 Appointment: Lita Barakat WPtel: [address] [place], [place] [id number] Hospital Follow Up 01/14/2019 Visit Diagnosis Plan: [...] : J96.11 12/25/2018 Appointment: Lita Barakat WPtel: [address] [place], [place] [phone] Hospital Follow Up 12/25/2018 Appointment: Lita Barakat WPtel: [address] [place], [place] [phone] US CANCELED 12/23/2018 Appointment: Ines Banerjee [address] [place], [place] [address] US CANCELED 12/20/2018 Visit Diagnosis Plan: Acute [...] ICD-10 : I10 12/09/2018 Appointment: Ines Banerjee [address] [place], [place] [address] LAB 12/09/2018 Patient Education: cefdinir- [employer] Coupon [id number] https://www.[employer]/GateGuru/resources/getResource/61/z7828t2e-68bh-6419-63 Completed 12/09/2018 Visit Diagnosis Plan: Candidal stomatitis Discussion: Diflucan for 5 days Hold atorvastatin while taking ICD-9 : 112.0 ICD-10 : B37.0 12/05/2018 Appointment: Lita Barakat WPtel: [address] [place] [address] ACUTE ILLNESS 12/05/2018 Patient Education: fluconazole- [employer] Coupon [id number] https://www.[employer]/samplemd/resources/getResource/61/8x115q56-3ap9-10k6-19 Completed 12/05/2018 Appointment: Lita Barakat WPtel: [address] [place] [address] NO SHOW 11/11/2018 Visit Plan: Saline nasal [...] : J01.91 10/23/2018 Appointment: Lita Barakat WPtel: [address] [place], [place] [phone] ACUTE ILLNESS 10/23/2018 Patient Education: prednisone- [employer] Coupon [id number] https://www.[employer]uru/resources/getResource/61/nh8yp655-ybkm-2207-13 Completed 10/23/2018 Care Plan: A1C HPLC LOINC : 70653-9 Pending 09/10/2018 Care Plan: COMPREH[place] METAB[place] : [address]48[address]-7 Pending 09/10/2018 Care Plan: CBC Pending 09/10/2018 [...] G25.81 08/21/2018 Appointment: Lita Barakat WPtel: [address] [place], [place] [phone] ACUTE ILLNESS 08/21/2018 Care Plan: Referral Order SNOMED-CT : 30 8142832 Pending 08/21/2018 Visit Diagnosis Plan: Chronic obstructiv [...] : G25.81 08/07/2018 Appointment: Lita Barakat WPtel: [address] [place] [address] FOLLOW UP 08/07/2018 Appointment: Lita Barakat WPtel: [address] [place], [place] [phone] 07/18/18 1210---see note in chart (km) CANCELED 07/18/2018 Visit Diagnosis Plan: Chronic obstructiv e pulmonary disease with acute lower respiratory infection Discussion: Solumedrol 125mg IM Change t o trelagy 1 inhalation daily Use SVNs with albuterol q4hrs To ER this weekend if worsens Monitor weight/swelling ICD-9 : 496 ICD-10 : J44.0 05/23/2018 Appointment: Lita Barakat WPtel: [address] [place] [address] ACUTE ILLNESS 05/23/2018 Patient Education: Patient Medication Summary Completed 05/23/2018 Visit Diagnosis Plan: Candidal stomatitis Discussion: Diflucan for 7 more days--hold atrovastatin while taking ICD-9 : 112.0 ICD-10 : B37.0 05/02/2018 Appointment: Lita Barakat WPtel: [address] [place] [address] FOLLOW UP 05/02/2018 Patient Education: Patient Medication [...] ICD-10 : J44.0 04/29/2018 Appointment: Autumn Oneil [address] [place], [place] [address] ACUTE ILLNESS 04/29/2018 Patient Education: Patient Medication [...] J44.0 04/22/2018 Appointment: [facility]at [facility]Ptel[facility] [facility] 04/22/2018 Patient Education: Patient Medication Summary Completed 04/22/2018 Appointment: Lita Barakat WPtel: [facility] 04/09/18 1640---see message in chart from today [...] : M17.11 01/28/2018 Appointment: Lita Barakat WPtel: [address] [place] [address] ACUTE ILLNESS 01/28/2018 Patient Education: Patient Medication Summary Completed 01/28/2018 Care Plan: Referral Order SNOMED-CT : 30 6158362 Pending 01/28/2018 Care Plan: Referral Order SNOMED-CT : 30 5540947 Pending 01/28/2018 Visit Diagnosis Plan: Functional dyspepsia Discussion: Protonix Call in 1 week on how doing ICD-9 : 536.8 ICD-10 : K30 01/23/2018 Visit Diagnosis Plan: Pain in right knee Discussion: T opical voltaren gel QID ICD-9 : 719.46 ICD-10 : M25.561 01/23/2018 Appointment: Lita Barakat WPtel: [address] [place] [address] ACUTE ILLNESS 01/23/2018 Patient Education: Patient Medication [...] : N39.0 01/02/2018 Appointment: Lita Barakat WPtel: [address] [place] [address] ACUTE ILLNESS 01/02/2018 Patient Education: Patient Medication [...] ICD-10 : J44.1 12/28/2017 Appointment: Autumn Oneil [address] [place] [address] Consult 12/28/2017 Patient Education: Patient Medication Summary [...] : J20.9 12/21/2017 Appointment: Autumn Oneil [address] [facility] ACUTE ILLNESS 12/21/2017 Patient Education: Patient Medication Summary Completed 12/21/2017 Care Plan: X-RAY EXAM OF KNEE 1 OR 2 right [place] NC : 10740-3 Pending 12/18/2017 Visit Diagnosis Plan: Pain in [...] ICD-10 : J44.0 12/17/2017 Appointment: Autumn Oneil [address] [place] [address] ACUTE ILLNESS 12/17/2017 Patient Education: Patient Medication Summary Completed 12/17/2017 Visit Diagnosis Plan: Unilateral primary osteoarthriti s, right knee Discussion: Right knee injection as above Warned of elevated BS after injection ICD-9 : 715.96 ICD-10 : M17.11 12/11/2017 Appointment: Lita Barakat WPtel: [address] [place] [address] OFFICE SURGERY 12/11/2017 Patient Education: Patient Medication Summary Completed 12/11/2017 Visit Diagnosis Plan: Actinic keratosis Discussion: Cr yotherapy as above If persists then will need excision by Dr. Swanson ICD-9 : 702.0 ICD-10 : L57.0 11/07/2017 Appointment: Lita Barakat WPtel: [address] [place] [address] ACUTE ILLNESS 11/07/2017 Patient Education: Patient Medication [...] S61.411S 10/17/2017 Appointment: Lita Barakat WPtel: [address] ER Follow UP 10/17/2017 Patient Education: Patient Medication Summary Completed 10/17/2017 Appointment: Lita Barakat WPtel: [address] [facility] [place] Consult 08/15/2017 Visit Diagnosis Plan: Chronic [...] ICD-10 : J44.0 08/02/2017 Appointment: Autumn Oneil [address] [place] [address] ACUTE ILLNESS 08/02/2017 Patient Education: Patient Medication Summary Completed 08/02/2017 Patient Education: Patient Medication Summary Completed 07/31/2017 Care Plan: CHEST X-RAY 2VW FRONTAL&LATL LOINC : 92850-1 Pending 07/31/2017 Appointment: Lita Barakat WPtel: [facility] INJECTION 07/24/2017 Patient Education: Patient Medication [...] : 491.21 ICD-10 : J44.1 07/02/2017 Appointment: Autmun Oneil [address] ACUTE ILLNESS 07/02/2017 Patient Education: Patient Medication Summary Completed 07/02/2017 Care Plan: CHEST X-RAY 2VW FRONTAL&LATL LOINC : 24721-2 Pending 07/02/2017 Care Plan: MRI LUMBAR SPINE W/O DYE LOIN C : 07903-6 Pending 05/30/2017 Visit Plan: MRI at [facility] Beattie codone 5.325 1 po q 4-6 hours prn pain #40 NR and Cyclobenzaprine (ERx) Continue warm packs for pain RTC if no improvement 05/29/2017 Appointment: Ruchi Buchanan WPtel: [address] [place] [address] ACUTE ILLNESS 05/29/2017 Patient Education: Patient Medication Summary Completed 05/29/2017 Appointment: Lita Barakat WPtel: [address] [place] [address] US CANCELED 05/24/2017 Patient Education: Patient Medication Summary Completed 05/22/2017 Care Plan: X-RAY EXAM L-S SPINE 2/3 VWS LOINC : 09530-9 Pending 05/22/2017 Appointment: Lita Barakat WPtel: [address] [place] [address] LAB 04/17/2017 Patient Education: Patient Medication Summary Completed 04/17/2017 Referral: Demetrius Benjamin WPtel: [address] [place] [address] Referral Initiated 04/05/2017 Appointment: Lita Barakat WPtel: [address] [place], [place] [phone] 03/30/17 0930---spoke with patient about ointments (km Consult 03/30/2017 Appointment: Lita Barakat WPtel: [address] [place], [place] [address] 03/29/17 1320---spoke with patient, requip refilled wasn't received at pharmacy so verbally called (km) Consult 03/29/2017 Patient Education: Patient Medication Summary Completed 03/01/2017 Care Plan: CHEST X-RAY 2VW FRONTAL&LATL LOINC : 51793-3 Pending 03/01/2017 Visit Diagnosis Plan: Bursitis of left shoulder Discus yesi: Injection as above ICD-9 : 726.10 ICD-10 : M75.52 02/01/2017 Appointment: Lita Barakat WPtel: [address] [place] [address] 01/31 confirmed ~sl WORK IN 02/01/2017 Patient Education: Patient Medication Summary Completed 02/01/2017 Care Plan: X-RAY EXAM OF SHOULDER LOINC : 13710-8 Pending 01/30/2017 Visit Plan: May take OTC Tylenol/Ibuprof en as directed XRay at [facility] of left shoulder Tramadol 50mg 1 po q 6 hours prn pain called to [facility]. Sedation warning given (no driving, etc) RTC if no improvement 01/29/2017 Appointment: Ruchi Buchanan WPtel: [address] [place] [address] ACUTE ILLNESS 01/29/2017 Appointment: Ruchi Buchanan WPtel: [address] [place] [address] ACUTE ILLNESS 01/29/2017 Patient Education: Patient Medication Summary Completed 01/29/2017 Appointment: Lita Barakat WPtel: [address] [place], [place] [address] [place] Consult 01/10/2017 Appointment: Lita Barakat WPtel: [address] [place] [phone] 12/27/2016 Patient Education: Patient Medication Summary Completed [...] : R53.83 12/21/2016 Appointment: Lita Barakat WPtel: [address] [place] [address] ACUTE ILLNESS 12/21/2016 Patient Education: Patient Medication Summary Completed 12/21/2016 Appointment: Lita Barakat WPtel: [address] [place] [phone] US CANCELED 12/18/2016 Visit Diagnosis Plan: Restless [...] : D64.9 12/14/2016 Appointment: Lita Barakat WPtel: [address] [place] [address] 12/13 confirmed ~sl WORK IN 12/14/2016 Appointment: Lita Barakat WPtel: [address] [place] [phone] US CANCELED 12/14/2016 Patient Education: Patient Medication Summary Completed 12/14/2016 Appointment: Lita Barakat WPtel: [address] [place] [phone] [place] LAB 12/12/2016 Patient Education: Patient Medication Summary Completed 12/12/2016 Appointment: Lita Barakat WPtel: [address] [place] [phone] in ER this weekend--called for reports Consult 12/11/2016 Appointment: Lita Barakat WPtel: [address] [place], [place] [address] [place] CANCELED 12/04/2016 Visit Diagnosis Plan: Pneumonia, [...] ICD-10 : G25.81 11/14/2016 Appointment: Magda Toth [address] [place], [place] [phone] MEDICATION REVIEW 11/14/2016 Patient Education: Patient Medication Summary Completed 11/14/2016 Appointment: Lita Barakattel: [address] [place] [phone] US RESCHEDULED 11/02/2016 Visit Diagnosis Plan: Candidal stomatitis Discussion: Diflucan and Nystatin Hold atorvastatin while taking diflucan ICD-9 : 112.0 ICD-10 : B37.0 10/31/2016 Appointment: Lita Barakat WPtel: [address] [place] [phone] ACUTE ILLNESS 10/31/2016 Patient Education: Patient Medication Summary Completed 10/31/2016 Appointment: Lita Barakat WPtel: [address] [place] [phone] [place] Consult 10/23/2016 Appointment: Lita Barakat WPtel: [address] [place] [phone] US CANCELED 10/18/2016 Visit Plan: Rx as above Wear O2 at all t imes as instructed by Dr Chacon Continue breathing treatments Supportive care otherwise reviewed Follow up ingrid if not improving 10/03/2016 Appointment: Lita Barakat WPtel: [address] [place] [phone] [place] CANCELED 10/03/2016 Appointment: Magda Toth [address] [place] [address] ACUTE ILLNESS 10/03/2016 Patient Education: Patient Medication Summary Completed 10/03/2016 Visit Plan: Titrate requip to 1.5mg x 1 week Call if not helpful and will increase to 2mg qHS NO MORE nyquil at bedtime - discussed potential effects of decongestants on heart, oversedating himself, etc Will increase requip, then amitriptyline if needed to desired effect 09/04/2016 Appointment: Magda Toth [address] [place] [address] ACUTE ILLNESS 09/04/2016 Patient Education: Patient Medication Summary Completed 09/04/2016 Visit Plan: Stop requip and try elavil C ryotherapy as above See ENT for removal of right ear lesion 08/22/2016 Appointment: Lita Barakat WPtel: [address] [place] [address] ACUTE ILLNESS 08/22/2016 Patient Education: Patient Medication Summary Completed 08/22/2016 Visit Plan: Trial of requip 1mg q HS Res tart zoloft Recheck 1month 08/10/2016 Appointment: Lita Barakat WPtel: [address] [place] [address] ACUTE ILLNESS 08/10/2016 Patient Education: Patient Medication Summary Completed 08/10/2016 Visit Plan: Stop HCTZ Flagyl for diarrhe a Hydrate Discussed meds for restless legs Zofran prn Nausea 07/06/2016 Appointment: Lita Barakat WPtel: [address] [place] [address] 07/05 confirmed~sl Hospital Follow Up 07/06/2016 Patient Education: Patient Medication Summary Completed 07/06/2016 Visit Plan: Reviewed with Dr Yuval Palacios sidering his recent history, instructed him to go straight to the ER called to notify her so she can meet him there 06/22/2016 Appointment: Magda Toth [address] [place], [place] [id number] ACUTE ILLNESS 06/22/2016 Patient Education: Patient Medication Summary Completed 06/22/2016 Visit Plan: Continue current meds Prevna r 13 and High Dose Flu given 06/13/2016 Appointment: Lita Barakat WPtel: [address] [place] [address] 06/13 confirmed~ WORK IN 06/13/2016 Patient Education: Patient Medication Summary Completed 06/13/2016 Appointment: Lita Barakat WPtel: [address] [place] [address] just went over current medications CANCELED 06/08/2016 Visit Plan: Reviewed POC with Dr Barakat Stat cbc, cmp, d dimer, troponin, bnp, ekg, cxr If any worsening of symptoms while awaiting results, patient instructed to go to ER or call 911 06/01/2016 Appointment: Magda Toth [address] [place], [place] [id number] ACUTE ILLNESS 06/01/2016 Patient Education: Patient Medication Summary Completed 06/01/2016 Referral: José Miguel Swanson WPtel: [address] [place] [address] 04/[address] swanson's office, patient is [...] and treatment 04/26/2016 Appointment: Magda Toth [facility] [facility] ACUTE ILLNESS 04/26/2016 Patient Education: Patient Medication Summary Completed 04/26/2016 Care Plan: Referral Order SNOMED-CT : 30 2526534 Pending 04/26/2016 Visit Plan: Left ear flushed after conse nt with warm water with peroxide with ear syringe Patient tolerated well Ear exam is wnl following flushing Follow up PRN 04/05/2016 Appointment: Magda Toth [address] [place], [place] [id number] ACUTE ILLNESS 04/05/2016 Patient Education: Patient Medication Summary Completed 04/05/2016 Visit Plan: Increase Levemir to 25u sc d aily Increase sertraline to 2 full tablets daily--200mg Debrox or cerumenex to bilateral ears q HS for 3 nights then flush or fwup for fushing Check lab in 2mos then fwup 04/03/2016 Appointment: Lita Barakat WPtel: [address] [place], [place] [phone] 03/31 7 lm ~sl FOLLOW UP 04/03/2016 Patient Education: Patient Medication Summary Completed 04/03/2016 Visit Plan: Patient informed of correct dosage of levemir and how to administer. Patient verbalizes understanding and will call if any questions/concerns. 10 Units of Levemir given in office SC to right lower abdom en. Patient tolerated well. Site without redness/irritation. 03/13/2016 Appointment: Lita Barakat WPtel: [address] [place], [place] [phone] SPECIAL 03/13/2016 Patient Education: Patient Medication Summary Completed 03/13/2016 Appointment: Lita Barakat WPtel: [address] [place], [place] [phone] LAB 03/06/2016 Patient Education: Patient Medication Summary Completed 03/06/2016 Visit Plan: Patient saw Dr. Chacon this week and was given prednisone taper for COPD Continue current meds Accuchecks daily Patient will return on Sunday morning for fasting lab incuding CBC, CMP, TSH, free T4, HbA1C, Lipids, Testosterone, PSA 03/02/2016 Appointment: Lita Barakat WPtel: [address] [place] [phone] 03/01 confirmed ~sl FOLLOW UP 03/02/2016 Patient [...] how doing 02/17/2016 Appointment: Lita Barakat WPtel: [address] [place] [address] WORK IN 02/17/2016 Patient Education: Patient Medication Summary Completed 02/17/2016 Visit Plan: Xrays to further evaluate Alvarez spect heel spur(s) Will call with results Has had injections in the past that were helpful Dr Barakat can do them or can refer to podiatry if warranted 02/14/2016 Appointment: Magda Toth [address] [place] [address] ACUTE ILLNESS 02/14/2016 Patient Education: Patient Medication Summary Completed 02/14/2016 Visit Plan: Increase Zoloft to 150mg cooper ly 01/31/2016 Appointment: Lita Barakat WPtel: [address] [place] [address] 01/26 confirmed `sl FOLLOW UP 01/31/2016 Patient Education: Patient Medication Summary Completed 01/31/2016 Visit Plan: Decrease citalopram to 20mg q AM for 1 week then stop Start zoloft 50mg q HS for 1 week then increase to 100mg q HS 12/30/2015 Appointment: Lita Barakat WPtel: [address] [place], [place] [address] 12/28 confirmed~sl ACUTE ILLNESS 12/30/2015 Patient Education: Patient Medication Summary Completed 12/30/2015 Visit Plan: Check Neck US 12/16/2015 Appointment: Lita Barakat WPtel: [address] [place] [phone] 12/14 lm ~sl 12/15 confirmed-sp FOLLOW UP 12/16/2015 Patient Education: Patient Medication Summary Completed 12/16/2015 Care Plan: US EXAM OF HEAD AND NECK LOIN C : 64357-3 Ordered 12/16/2015 Appointment: Stephanie Rios WPtel: [address] [place], [place] [phone] [place] 12/09 confirmed-sp 12/12 lm ~sl Patient [...] PO TID 12/06/2015 Appointment: Stephanie Rios WPtel: [address] [place], [place] [phone] ACUTE ILLNESS 12/06/2015 Patient Education: Patient Medication Summary Completed 12/06/2015 Referral: Lisbeth Darby WPtel: [facility] [address] 11/18/15 called luther at [place] office and confirmed time and date of appointment with patient~sl Initiated 11/18/2015 Visit Plan: Referral to Dermatology for removal of facial skin lesions Cefdinir PO bid Topical Mupirocin to skin lesions bid 11/15/2015 Appointment: Stephanie Rios WPtel: [address] [place], [place] [phone] ACUTE ILLNESS 11/15/2015 Patient Education: Patient Medication Summary Completed 11/15/2015 Visit Plan: Continue current meds Accuch ecks daily Fwup with ophthamology as scheduled Will check lab in 3mos then fwup due to recent meds that will affect blood sugar 10/05/2015 Appointment: Lita Barakat WPtel: [address] [place], [place] [phone] 10/04/15 appt confirmed cn Annual Well Visit 08/2016 Patient Education: Patient Medication Summary Completed 10/05/2015 Visit Plan: Alexis -1 sample box given Return visit in 6 weeks for fasting labs Notify for worsening symptoms such as Increased redness, swelling, pain or drainage of Rt. knee 07/22/2015 Appointment: Stephanie [facility]Ptel[facility] [facility] 07/21 vm left cn FOLLOW UP 07/22/2015 Patient Education: Patient Medication Summary Completed 07/22/2015 Visit Plan: Continue to change dressing twice daily and apply Mupirocin Complete Doxycycline as directed. Follow-up for worsening symptoms, such as increased swelling, redness or pain. 07/01/2015 Appointment: Stephanie Rios WPtel: [phone] [facility] FOLLOW UP 07/01/2015 Patient Education: Patient Medication Summary Completed 07/01/2015 Visit Plan: Pressure dressing applied to draining wound left knee. Instructed to change dressing twice daily and continue Mupirocin topical Doxycycline PO bid x 10 days Wound culture obtained. Wound tissue sent to pathology Follow-up in 3 days 06/28/2015 Appointment: Stephanie Rios WPtel: [address] [place], [place] [phone] ACUTE ILLNESS 06/28/2015 Patient Education: Patient Medication Summary Completed 06/28/2015 Visit Plan: Complete antibiotics Follow- up for increased tenderness, swelling or drainage. 06/09/2015 Appointment: Stephanie Rios WPtel: [address] [place], [place] [id number] 06/08/15 lm FOLLOW UP 06/09/2015 Patient Education: Patient Medication Summary Completed 06/09/2015 Visit Plan: Apply pressure dressing toda y Continue antibiotics and topical Mupirocin Follow-up in 2 days Bursa drained from open area using pressure--serosanguinous drainage 06/07/2015 Appointment: Stephanie Rios WPtel: [facility] 06/04/15 confirmed with patient FOLLOW UP 0 06/07/2015 Patient Education: Patient Medication Summary Completed 06/07/2015 Visit Plan: Wound culture Lt. knee Apply mupirocin to open wound bid Clindamycin 600 mg PO bid x 10 days Follow-up on Sunday06/03/2015 Appointment: Stephanie Rios WPtel: [address] [place], [place] [phone] ACUTE ILLNESS 06/03/2015 Patient Education: Patient Medication Summary Completed 06/03/2015 Visit Plan: Accuchecks daily Check CMP, HbA1C today Patient is noncompliant with meds and diet but patient says he is doing everything he is supposed to do Wants to try performomist instead of albuterol in SVN 06/01/2015 Appointment: Lita Barakat WPtel: [address] [place], [place] [phone] 05/28 appt confirmed cn FOLLOW UP 06/01/20 15 Patient Education: Patient Medication Summary Completed 06/01/2015 Visit Plan: Change Breo Ellipta to Advai r 500/50 1 p BID this next month Continue turdoza Use albuterol prn Check CMP, HbA1C today Accuchecks daily Cryotherapy as above 02/25/2015 Appointment: Lita Barakat WPtel: [address] [place] [phone] 02/24 appt confirmed and explained needed payment he said ok FOLLOW UP 02/25/2015 Patient Education: Patient Medication Summary Completed 02/25/2015 Referral: Lopez Chacon [address] [facility] C&D [id number] Will put patient on cancellation list Initiated 12/08/2014 Appointment: Lita Barakat WPtel: [address] [place], [place] [phone] Hospital Follow Up 10/29/2014 Visit Plan: Finish prednisone Continue S VNs with albuterol QID See pulmonology and start Pulmonary rehab Once again discussed taking it easy this winter--that he is high risk for exacerbation 10/27/2014 Appointment: Lita Barakat WPtel: [address] [place], [place] [phone] FOLLOW UP 10/27/2014 Patient Education: Patient Medication Summary Completed 10/27/2014 Appointment: Lita Barakat WPtel: [address] [place] [address] FOLLOW UP 10/26/2014 Appointment: Stephanie Rios WPtel: [address] [place], [place] [phone] WORK IN 10/21/2014 Patient Education: Patient Medication Summary Completed 10/21/2014 Patient Education: Patient Medication Summary Completed 10/19/2014 Visit Plan: Continue oxygen and SVNS wit h duoneb Increase farxiga to 10mg daily Diflucan 100mg daily for 1week 10/06/2014 Appointment: Lita Barakat WPtel: [address] [place] [address] Moved appt time to 2:45pm FOLLOW UP 2014 Patient Education: Patient Medication Summary Completed 10/06/2014 Visit Plan: Finish omnicef Continue Breo BID and Turdoza Use SVNS with duoneb at least TID for next 2weeks then go to prn 09/21/2014 Appointment: Lita Barakat WPtel: [address] [place] [address] Follow Up 09/21/2014 Patient Education: Patient Medication Summary Completed 09/21/2014 Patient Education: [facility] - Saving AutoInj - Ventolin HFA - 18+ - Dynamic Portal ID Completed 09/21/2014 Appointment: Stephanie Rios WPtel: [address] [place], [place] [phone] Scheduled by 09/07 patient rescheduled to 09/08 with Stephanie. Hospital Follow Up 09/08/2014 Patient Education: Patient Medication Summary Completed 09/08/2014 Appointment: Stephanie Rios WPtel: [address] [place], [place] [phone] FOLLOW UP 09/02/2014 Patient Education: Patient Medication Summary Completed 09/02/2014 Patient Education: [employer] - Antibi otics, Analgesics 18+, Oral Contraceptives F 18+ Completed 09/02/2014 Appointment: Lita Barakat WPtel: [phone] [facility] UA 08/27/2014 Patient Education: Patient Medication Summary [...] prn sleep 08/10/2014 Appointment: Lita Barakat WPtel: [address] [place], [place] [phone] Annual Well Visit 08/10/2014 Patient Education: Patient Medication Summary Completed 08/10/2014 Appointment: Lita Barakat WPtel: [address] [place], [place] [phone] LAB 08/05/2014 Patient Education: Patient Medication Summary Completed 08/05/2014 Visit Plan: ECHO results reviewed Contin ue Breo and Turdoza Pt starts PT this afternoon for back--has had one epidural with no help in pain 05/05/2014 Appointment: Lita Barakat WPtel: [address] [place], [place] [phone] FOLLOW UP 05/05/2014 Patient Education: Patient Medication Summary Completed 05/05/2014 Visit Plan: Continue Breo and Turdoza Camargo s heart tests scheduled next week Will see surgeon for removal of skin cancer to neck after done with cardiac workup 03/24/2014 Appointment: Lita Barakat WPtel: [address] [place], [place] [phone] [place] FOLLOW UP 03/24/2014 Patient Education: Patient Medication Summary Completed 03/24/2014 Visit Plan: Proceed with cardiology eval uation as patient is has numerous risk factors for CAD Change Symbicort to Breo 1p BID and add Turdorza 1p BID Recheck in weeks Check 2-D ECHO and lexiscan 03/10/2014 Appointment: Lita Barakat WPtel: [address] [place], [place] [phone] FOLLOW UP 03/10/2014 Patient Education: Patient Medication Summary Completed 03/10/2014 Visit Plan: Shoulder injection as above Back brace to use when doing any lifting for stability 12/16/2013 Appointment: Lita Barakat WPtel: [address] [place] [address] ACUTE ILLNESS 12/16/2013 Patient Education: Patient Medication Summary Completed 12/16/2013 Visit Plan: Continue symbicort and Turdo za Salt water gargles Omnicef 300mg 2 po daily for 1wk Phenergan with codeine 10/09/2013 Appointment: Lita Barakat WPtel: [address] [place], [place] [phone] WORK IN 10/09/2013 Patient Education: Patient Medication Summary Completed 10/09/2013 Appointment: Ruchi Buchanan WPtel: [address] [place], [place] [phone] ACUTE ILLNESS 09/18/2013 Patient Education: Patient Medication Summary Completed 09/18/2013 Visit Plan: Check on repeat CXR Finish a bx Start Tradjenta to replace metformin 08/13/2013 Appointment: Lita Barakat WPtel: [address] [place], [place] [phone] 08/12 Hospital Follow Up 08/13/2013 Patient Education: Patient Medication Summary Completed 08/13/2013 Visit Plan: Admit to hospital 08/06/2013 Appointment: Stephanie Rios WPtel: [address] [place], [place] [phone] ACUTE ILLNESS 08/06/2013 Patient Education: Patient Medication Summary Completed 08/06/2013 Visit Plan: Continue current meds Contin ue accuchecks daily Proceed with stress test due to high risk for CAD 07/16/2013 Appointment: Lita Barakat WPtel: [address] [place], [place] [phone] FOLLOW UP 07/16/2013 Patient Education: Patient Medication Summary Completed 07/16/2013 Appointment: Lita Barakat WPtel: [address] [place] [address] LAB 06/25/2013 Patient Education: Patient Medication Summary Completed 06/25/2013 Visit Plan: prednisone and azithromycin. Doing CBC and mycoplasma blood draw. Will continue inhaler and albuterol breathing treatments. 04/09/2013 Appointment: Kimberly Villalba WPtel: [address] [place] [address] ACUTE ILLNESS 04/09/2013 Patient Education: Patient Medication Summary Completed 04/09/2013 Appointment: Lita Barakat WPtel: [address] [place] [address] ACUTE ILLNESS 02/11/2013 Patient Education: Patient Medication Summary Completed 02/11/2013 Appointment: Ruchi Buchanan WPtel: [address] [place] [address] ACUTE ILLNESS 01/31/2013 Patient Education: Patient Medication Summary Completed 01/31/2013 Visit Plan: Cefdinir and medrol dose pac k. Codeine/guiaf cough syrup. Has colonoscopy on Sunday. Pt. is to notify if fever occurs or symptoms worsen. Hydration and rest. 01/20/2013 Appointment: Kimberly Villalba WPtel: [address] [place] [address] ACUTE ILLNESS 01/20/2013 Patient Education: Patient Medication Summary Completed 01/20/2013 Visit Plan: Scopalamine patch and vestib ular exercises 12/19/2012 Appointment: Lita Barakat WPtel: [address] [place] [address] ACUTE ILLNESS 12/19/2012 Patient Education: Patient Medication Summary Completed 12/19/2012 Visit Plan: Dr. Swanson consult if no impr ovement in hearing. Pt. reports he will notify if no better in one week. Willam consult for skin lesion. 10/21/2012 Appointment: Kimberly Villalba WPtel: [address] [place], [place] [phone] ACUTE ILLNESS 10/21/2012 Patient Education: Patient Medication Summary Completed 10/21/2012 Appointment: Lita Barakat WPtel: [address] [place], [place] [phone] [place] LAB 09/19/2012 Patient Education: Patient Medication Summary Completed 09/19/2012 Visit Plan: Check fasting lab in AM--CMP , Lipids, HbA1C 09/18/2012 Appointment: Lita Barakat WPtel: [address] [place] [address] FOLLOW UP 09/18/2012 Patient Education: Patient Medication Summary Completed 09/18/2012 Appointment: Lita Barakat WPtel: [address] [place] [address] appt time scheduled sooner FOLLOW UP 09/05 Visit Plan: Doxycycline and Prednisone I ncrease SVN to QID Add back Symbicort 160/4.5 2 p BID 08/28/2012 Appointment: Lita Barakat WPtel: [address] [place] [address] FOLLOW UP 08/28/2012 Patient Education: Patient Medication Summary Completed 08/28/2012 Appointment: Lita Barakat WPtel: [address] [place], [place] [phone] Annual Well Visit 07/10/2012 Patient Education: Patient Medication Summary Completed 07/10/2012 Visit Plan: Finish Z-pack Add Nasonex Ad d Meclizine Vestibular exercises Continue current meds and accuchecks Check lab and fwup in 4mos 05/09/2012 Appointment: Lita Barakat WPtel: [address] [place], [place] [phone] number no longer works FOLLOW UP 2 Patient Education: Patient Medication Summary Completed 05/09/2012 Appointment: Lita Barakat WPtel: [address] [place], [place] [phone] [place] LAB 05/06/2012 Patient Education: Patient Medication Summary Completed 05/06/2012 Appointment: Lita Barakat WPtel: [address] [place], [place] [phone] [place] LAB 05/02/2012 Appointment: Lita Barakat WPtel: [address] [place], [place] [phone] [place] INJECTION 02/05/2012 Patient Education: Patient Medication Summary Completed 02/05/2012 Visit Plan: cefdinir. Will focus on rest and fluids. Pt. reports he is using breathing treatments as needed. Pt. will monitor for worsening symptoms or fever. 10/02/2011 Appointment: Kimberly Villalba WPtel: [address] [place], [place] [phone] ACUTE ILLNESS 10/02/2011 Patient Education: Patient Medication Summary Completed 10/02/2011 Appointment: Lita Barakat WPtel: [address] [place], [place] [id number] [place] INJECTION 08/10/2011 Patient Education: Patient Medication Summary Completed 08/10/2011 Visit Plan: Continue current meds Restar t Advair Restart exercise Flu shot given 08/07/2011 Appointment: Lita Barakat WPtel: [address] [place], [place] [id number] FOLLOW UP 08/07/2011 Patient Education: Patient Medication Summary Completed 08/07/2011 Appointment: Lita Barakat WPtel: [address] [place], [place] [id number] [place] LAB 07/26/2011 Patient Education: Patient Medication Summary Completed 07/26/2011 Visit Plan: ALEKSANDER Carmen Continue Metformin but change to BID Add Lantus 25u sc q PM BS readings in 1wk 04/03/2011 Appointment: Lita Barakat WPtel: [address] [place], [place] [phone] ACUTE ILLNESS 04/03/2011 Patient Education: Patient Medication Summary Completed 04/03/2011 Appointment: Lita Barakat WPtel: [address] [place] [phone] [place] INJECTION 01/19/2011 Patient Education: Patient Medication Summary Completed 01/19/2011 Appointment: Lita Barakat WPtel: [address] [place], [place] [phone] ACUTE ILLNESS 01/18/2011 Patient Education: Patient Medication Summary Completed 01/18/2011 Appointment: Lita Barakat WPtel: [address] [place] [phone] [place] INJECTION 12/21/2010 Patient Education: Patient Medication Summary Completed 12/21/2010 Appointment: Lita Barakat WPtel: [address] [place], [place] [phone] FOLLOW UP 12/19/2010 Patient Education: Patient Medication Summary Completed 12/19/2010 Appointment: Lita Barakat WPtel: [address] [place] [phone] [place] LAB 12/07/2010 Patient Education: Patient Medication Summary Completed 12/07/2010 Appointment: Kimberly Villalba WPtel: [address] [place], [place] [phone] ACUTE ILLNESS 04/05/2010 Patient Education: Patient Medication Summary Completed 04/05/2010 Appointment: Lita Barakat WPtel: [address] [place] [phone] [place] WORK IN 03/14/2010 Patient Education: Patient Medication Summary Completed 03/14/2010 Appointment: Lita Barakat WPtel: [address] [place], [place] [phone] [place] LAB 03/02/2010 Visit Plan: HbA1C in 3mos. Continue Accu checks BID alternating times. Switch lexapro to celexa 01/13/2010 Appointment: Lita Barakat WPtel: [address] [place], [place] [phone] FOLLOW UP 01/13/2010 Patient Education: Patient Medication Summary Completed 01/13/2010 Appointment: Lita Barakat WPtel: [address] [place], [place] [phone] FOLLOW UP 01/11/2010 Visit Plan: Pt. will continue the Avalox and Doxycycline regimen as prescribed the previous day. He has been advised to continue inhalers, breathing treatments and oxygen therapy for at least the weekend. Moderate activity without strenuous exercise. The pt. will seek immediate re-eval if his symptoms worsen. 12/23/2009 Appointment: Kimberly Villalba WPtel: [address] [place] [address] FOLLOW UP 12/23/2009 Patient Education: Patient Medication [...] tomorrow morning. 12/22/2009 Appointment: Kimberly Villalba WPtel: [address] [place], [place] [phone] ACUTE ILLNESS 12/22/2009 Patient Education: Patient Medication Summary Completed 12/22/2009 Appointment: Kimberly Villalba WPtel: [address] [place] [address] [place] FOLLOW UP 12/21/2009 Appointment: Lita Barakat WPtel: [address] [place] [phone] [place] INJECTION 12/16/2009 Patient Education: Patient Medication Summary Completed 12/16/2009 Appointment: Kimberly Villalba WPtel: [phone] [id number] ACUTE ILLNESS 12/13/2009 Patient Education: Patient Medication Summary Completed 12/13/2009 Care Plan: X-RAY EXAM OF SHOULDER lt shoulder (pain ra diates across the shoulder) Hand carried orders to [facility] LOINC : 80121-1 Ordered 12/13/2009 Care Plan: X-RAY EXAM THORAC SPINE 2VWS Hand carried order LOINC : 54735-1 Ordered 12/13/2009 Care Plan: X-RAY EXAM RIBS UNI 2 VIEWS Posterior ribs of lt. side Pt. hand carries order to [facility] LOINC : 24055-7 Ordered 12/13/2009 Referral: José Miguel Swanson WPtel: [address] [address] [place] Referral Appointment Requested Referral: José Miguel Swanson WPtel: [address] [address] [place] Referral Appointment Requested Referral: Chandu Quarles WPtel: [address] Quarles for screening colonoscopy. P atient notified that [place] office will book appt with him Initiated Referral: Santosh Machado WPtel: #[address] [facility] [place] Referral Appointment Requested Referral: José Miguel Swanson WPtel: [address] [address] [place] Referral Initiated Referral: Lopez Chacon [address] [facility] C&D [id number] [place] Referral Initiated Referral: Demetrius Benjamin WPtel: [address] [address] [place] Referral Appointment Requested Referral: José Miguel Swanson WPtel: [address] [address] [place] Referral Appointment Requested Referral: José Miguel Swanson WPtel: [address] [address] [place] Referral Initiated Instructions Comment . Saline nasal flushes prn. Tylenol/Motr in prn headache. Notify if persists/symptoms worsening. . MRI at [facility] Hydrocodone 5.325 1 po q [...]
[2020-03-28 16:08] LABS: INR 0.9 (0.8-1.4)
--- OUTSIDE RECORDS SUMMARY | 2020-03-28 16:09 | XMS REPORT | CCD ---
Author Author Leandro Barakat D.O. Organization [facility] Address [address] [place] [address] Phone Care Team Providers Care Portuguese Tutor Name Role Phone Lita Barakat D.O., PP Unavailable CCM Unavailable Summary Purpose Interface Exchange Insurance Providers Payer name Policy type / Coverage type Covered republican ID Effective Begin Date Effective End Date [employer] MEDICARE Medicare Part B [id number] 2019 Unknown Family history Brother Diagnosis Age At Onset Cancer Unknown Father Diagnosis Age At Onset Heart disease Unknown Mother Diagnosis Age At Onset Heart disease Unknown Social History Social History Element Codes Description Effective Dates Tobacco history SNOMED CT: 3669164 Former smoker quit 15 years ago 08/07/2011 [...] R07.9 06/22/2016 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: [...] Fill Instructions losartan 100 mg tablet RxNorm: 692685 1TD 02/03/2020 05/02/2020 Active Sinemet CR 50 mg-200 mg tablet,extended release RxNorm: 8343 41 1 Tablet(s) Oral three times a day 02/02/2020 07/31/2020 Active Generic For:*S INEMET CR 50/200 TABLET SA 07/08/2018 3:09:11 PM hydrocodone 10 mg-acetaminophen 325 mg tablet RxNorm: 664529 1 Tablet(s) Oral Q4H as needed for pain 01/29/2020 No Stop Date Active ipratropium 0.5 mg-albuterol 3 mg (2.5 mg base)/3 mL n ebulization soln RxNorm: 9766233 USE 1 VIAL IN NEBULIZER Q4H (THIS REPLACES ALBUTEROL S OLUTION) 01/08/2020 02/06/2020 Active prednisone 20 mg tablet RxNorm: 011848 1 Tablet(s) Oral two remy es a day 12/25/2019 01/01/2020 Inactive Levemir FlexTouch U-100 Insulin 100 unit/mL (3 mL) sub cutaneous pen RxNorm: 777102 10 Unit(s) Subcutaneous every night at bedtime 12/22/2019 N o Stop Date Active baclofen 10 mg tablet RxNorm: 521402 1 Tablet(s) Oral QPM for p ain/spasm 12/22/2019 01/21/2020 Inactive ipratropium 0.5 mg-albuterol 3 mg (2.5 mg base)/3 mL n ebulization soln RxNorm: 7846885 USE 1 VIAL IN NEBULIZER Q4H (THIS REPLACES ALBUTEROL S OLUTION) 11/27/2019 12/16/2019 Inactive hydrocodone 10 mg-acetaminophen 325 mg tablet RxNorm: 640062 1 Tablet(s) Oral Q4H as needed for pain 11/13/2019 01/28/2020 Inactive Seroquel 50 mg tablet RxNorm: 809719 1 Tablet(s) Oral QPM as ne eded for sleep 10/07/2019 12/21/2019 Inactive ropinirole 4 mg tablet RxNorm: 187560 3 TABLET(S) BY [facility] DAILY AT BEDTIME FOR RESTLESS LEGS 09/29/2019 12/27/2019 Inactive Generic For:REQU IP 4 MG TABLET 09/29/2019 7:52:42 AM N O T I C E Last quantity doesn't match original quantity ropinirole 4 mg tablet RxNorm: 637623 3 TABLET(S) BY [facility] DAILY AT BEDTIME FOR RESTLESS LEGS 09/26/2019 09/28/2019 Inactive Generic For:REQU IP 4 MG TABLET 09/26/2019 9:08:48 AM N O T I C E Last quantity doesn't match original quantity ipratropium 0.5 mg-albuterol 3 mg (2.5 mg base)/3 mL n ebulization soln RxNorm: 6043626 USE 1 VIAL IN NEBULIZER EVERY FOUR HOURS (THIS REPLACES ALBUTEROL SOLUTION) 09/26/2019 10/15/2019 Inactive Generic For:*DUO NEB 2.5-0.5 MG/3 ML SOLN 09/26/2019 9:08:53 AM hydrocodone 10 mg-acetaminophen 325 mg tablet RxNorm: 235484 1 Tablet(s) Oral Q4H as needed for pain 09/09/2019 09/09/2019 Inactive hydrocodone 10 mg-acetaminophen 325 mg tablet RxNorm: 149795 1 Tablet(s) Oral Q4H as needed for pain 09/09/2019 09/08/2019 Inactive ondansetron HCl 4 mg tablet RxNorm: 535014 1 Tablet(s) Oral QPM for nausea 08/12/2019 10/10/2019 Inactive ipratropium 0.5 mg-albuterol 3 mg (2.5 mg base)/3 mL n ebulization soln RxNorm: 7951058 1 Unit Dose INH Q4H 08/12/2019 09/25/2019 Inactive replaces albuterol solution Augmentin 875 mg-125 mg tablet RxNorm: 101981 1 Tablet(s) Oral two times a day 08/07/2019 08/17/2019 Inactive prednisone 20 mg tablet RxNorm: 405458 1 Tablet(s) Oral QD 08/05/2008/04/2019 Inactive prednisone 20 mg tablet RxNorm: 950267 1 Tablet(s) Oral QD 08/05/2008/06/2019 Inactive Levaquin 500 mg tablet RxNorm: 705971 1 Tablet(s) Oral QD Replaces azithromycin (z-pack) 07/31/2019 08/05/2019 Inactive Levaquin 500 mg tablet RxNorm: 173636 1 Tablet(s) Oral QD Replaces azithromycin (z-pack) 07/21/2019 07/26/2019 Inactive Levaquin 500 mg tablet RxNorm: 188766 1 Tablet(s) Oral QD Replaces azithromycin (z-pack) 07/21/2019 07/20/2019 Inactive Zithromax Z-Gui 250 mg tablet RxNorm: 958159 Tablet(s) Oral 07/22/2019 Inactive Zithromax Z-Gui 250 mg tablet RxNorm: 308167 Tablet(s) Oral 019 07/15/2019 Inactive Symbicort 160 mcg-4.5 mcg/actuation HFA aerosol inhaler RxNo rm: 8565343 2 Puff(s) Inhalation two times a day 07/14/2019 07/14/2019 Inactive Tessalon Perles 100 mg capsule RxNorm: 027993 1 Capsule(s) Oral Q8H as needed 07/14/2019 08/06/2019 Inactive Seroquel 50 mg tablet RxNorm: 579571 1 Tablet(s) Oral QPM as ne eded for sleep 07/01/2019 10/06/2019 Inactive ondansetron HCl 4 mg tablet RxNorm: 581172 1 Tablet(s) Oral QPM for nausea 06/24/2019 07/24/2019 Inactive Seroquel 25 mg tablet RxNorm: 417357 1 Tablet(s) Oral every nig ht at bedtime 06/19/2019 06/18/2019 Inactive Seroquel 25 mg tablet RxNorm: 524402 1 Tablet(s) Oral every nig ht at bedtime 06/19/2019 06/30/2019 Inactive trazodone 150 mg tablet RxNorm: 910936 1/2 Tablet(s) PO QHS as needed for sleep 06/11/2019 06/17/2019 Inactive replaces PA on doxep in trazodone 150 mg tablet RxNorm: 457043 1/2 Tablet(s) PO QHS as needed for sleep 05/12/2019 06/11/2019 Inactive replaces PA on doxep in Vitamin D3 5,000 unit tablet RxNorm: 769211 1 Tablet(s) PO QD 05/09 No Stop Date Active magnesium oxide 400 mg (241.3 mg magnesium) tablet RxNorm: 1 50042 1 Tablet(s) PO QHS 05/09/2019 No Stop Date Active cyanocobalamin (vit B-12) 1,000 mcg/mL injection solution Rx Norm: 560586 1 injection weekly for 4 weeks 1 Milliliter(s) Inj 05/09/2019 12/21/2019 Inactive ferrous sulfate 325 mg (65 mg iron) tablet RxNorm: 793051 1 Tab let(s) PO QD 05/09/2019 12/21/2019 Inactive ropinirole 4 mg tablet RxNorm: 399738 3 TABLET(S) BY [facility] DAILY AT BEDTIME FOR RESTLESS LEGS 03/26/2019 06/23/2019 Inactive Generic For:REQU IP 4 MG TABLET 03/26/2019 11:23:36 AM N O T I C E Last quantity doesn't match original quantity pantoprazole 40 mg tablet,delayed release RxNorm: 901252 Tablet(s) TAKE 1 TABLET BY MOUTH DAILY FOR STOMACH 03/24/2019 06/21/2019 Inactive Gener ic For:PROTONIX 40MG TAB EC 01/03/2019 1:23:44 PM hydroxyzine HCl 10 mg tablet RxNorm: 920249 1 Tablet(s) PO BID as needed 03/24/2019 04/06/2019 Inactive ipratropium-albuterol 0.5 mg-3 mg(2.5 mg base)/3 mL ne bulization soln RxNorm: 9482506 1 Unit Dose INH Q4H 03/21/2019 No Stop Date Active replaces albuterol solution meclizine 12.5 mg tablet RxNorm: 092371 1 Tablet(s) PO BID as neede d 03/21/2019 12/21/2019 Inactive losartan 100 mg tablet RxNorm: 088087 1 Tablet(s) PO QD replace s lisinopril 03/13/2019 09/08/2019 Inactive fluconazole 100 mg tablet RxNorm: 597892 1 Tablet(s) PO QD 03/13/20 19 03/19/2019 Inactive nystatin 100,000 unit/mL oral suspension RxNorm: 783908 5 Unit( s) PO QID 03/13/2019 03/26/2019 Inactive tramadol 50 mg tablet RxNorm: 490735 1 Tablet(s) PO TID as needed for pain TAKE 2 TABS OF EXTRA STRENGTH TYLENOL WITH EACH DOSE 03/10/2019 04/06/2019 Inactive Generic For:*ULTRAM 50 MG TABLET 01/15/2019 4:55:26 PM Sinemet CR 50 mg-200 mg tablet,extended release RxNorm: 8343 41 1 Tablet(s) PO TID 02/26/2019 08/24/2019 Inactive Generic For:*SIN EMET CR 50/200 TABLET SA 07/08/2018 3:09:11 PM trazodone 150 mg tablet RxNorm: 243257 1/2 Tablet(s) PO QHS as needed for sleep 02/13/2019 02/12/2019 Inactive trazodone 150 mg tablet RxNorm: 151321 1/2 Tablet(s) PO QHS as needed for sleep 02/13/2019 02/25/2019 Inactive replaces PA on doxep in doxepin 10 mg capsule RxNorm: 3326325 1-2 Capsule(s) PO QHS prn sleep 02/13/2019 02/13/2019 Inactive Novolog U-100 Insulin aspart 100 unit/mL subcutaneous soluti on RxNorm: 989010 INJECT 10 UNIT(S) SUBCUTANEOUSLY BEFORE MEALS 01/31/2019 05/30/2019 In active 01/31/2019 1:39:10 PM ipratropium-albuterol 0.5 mg-3 mg(2.5 mg base)/3 mL ne bulization soln RxNorm: 3781174 1 Unit Dose INH Q4H 01/17/2019 03/20/2019 Inactive replaces albuterol solution tramadol 50 mg tablet RxNorm: 472808 1 Tablet(s) PO TID as needed for pain TAKE 2 TABS OF EXTRA STRENGTH TYLENOL WITH EACH DOSE 01/15/2019 02/03/2019 Inactive Generic For:*ULTRAM 50 MG TABLET 01/15/2019 4:55:26 PM Sinemet CR 50 mg-200 mg tablet,extended release RxNorm: 8343 41 1 Tablet(s) PO BID 01/03/2019 02/25/2019 Inactive Generic For:*SIN EMET CR 50/200 TABLET SA 07/08/2018 3:09:11 PM losartan 100 mg tablet RxNorm: 832772 1 Tablet(s) PO QD replace s lisinopril 01/03/2019 03/12/2019 Inactive Symbicort 160 mcg-4.5 mcg/actuation HFA aerosol inhaler RxNo rm: 0289147 2 Puff(s) INH BID 01/03/2019 01/02/2019 Inactive pantoprazole 40 mg tablet,delayed release RxNorm: 302064 TAKE 1 TABLET BY MOUTH DAILY FOR STOMACH 01/03/2019 03/23/2019 Inactive Generic For:MT OTONIX 40MG TAB EC 01/03/2019 1:23:44 PM nystatin 100,000 unit/mL oral suspension RxNorm: 554990 Unit(s) 5 Unit(s) PO QID swish and spit 01/02/2019 11/11/2019 Inactive Incruse Ellipta 62.5 mcg/actuation powder for inhalation RxN orm: 0160648 1 Capsule(s) INH QD 12/25/2018 12/21/2019 Inactive Tessalon Perles 100 mg capsule RxNorm: 062470 1 Capsule(s) PO T ID for cough 12/25/2018 02/25/2019 Inactive Medrol (Gui) 4 mg tablets in a dose pack RxNorm: 663132 Tablet(s) PO Use as directed 12/23/2018 01/02/2019 Inactive Levemir FlexTouch U-100 Insulin 100 unit/mL (3 mL) sub cutaneous pen RxNorm: 655520 20 Unit(s) SQ QD with pen needles 12/13/2018 05/11/2019 Inactiv e prednisone 20 mg tablet RxNorm: 625342 1 Tablet(s) PO QD 12/12/2018 0 12/11/2018 Inactive prednisone 20 mg tablet RxNorm: 604447 1 Tablet(s) PO QD 12/12/2018 0 12/16/2018 Inactive promethazine 6.25 mg-codeine 10 mg/5 mL syrup RxNorm: 096620 5 Milliliter(s) PO QHS as needed for cough 12/09/2018 12/18/2018 Inactive cefdinir 300 mg capsule RxNorm: 620319 1 Capsule(s) PO BID 12/10/19 19 12/18/2018 Inactive fluconazole 100 mg tablet RxNorm: 511931 1 Tablet(s) PO QD 12/06/19 19 12/08/2018 Inactive ropinirole 4 mg tablet RxNorm: 915308 3 Tablet(s) PO QHS for re stless legs 12/04/2018 03/03/2019 Inactive Novolog U-100 Insulin aspart 100 unit/mL subcutaneous soluti on RxNorm: 612529 INJECT 10 UNIT(S) SUBCUTANEOUSLY BEFORE MEALS 12/04/2018 01/30/2019 In active 12/04/2018 10:02:42 AM nystatin 100,000 unit/mL oral suspension RxNorm: 066282 5 Unit(s) PO QID swish and spit 11/25/2018 12/18/2018 Inactive ropinirole 4 mg tablet RxNorm: 893041 3 Tablet(s) PO QHS for re stless legs 11/04/2018 12/03/2018 Inactive prednisone 20 mg tablet RxNorm: 967758 1 Tablet(s) PO BID 10/23/2018 10/29/2018 Inactive ropinirole 4 mg tablet RxNorm: 730493 3 Tablet(s) PO QHS for re stless legs 10/14/2018 11/04/2018 Inactive pantoprazole 40 mg tablet,delayed release RxNorm: 407359 1 Tablet(s) PO QD forstomach 10/10/2018 01/02/2019 Inactive Symbicort 160 mcg-4.5 mcg/actuation HFA aerosol inhaler RxNo rm: 2949269 2 Puff(s) INH BID 10/10/2018 01/03/2019 Inactive Novolog U-100 Insulin aspart 100 unit/mL subcutaneous soluti on RxNorm: 587390 INJECT 10 UNIT(S) SUBCUTANEOUSLY BEFORE MEALS 10/10/2018 12/03/2018 In active 10/10/2018 11:30:01 AM Sinemet CR 50 mg-200 mg tablet,extended release RxNorm: 8343 41 1 Tablet(s) PO BID 09/26/2018 01/03/2019 Inactive Generic For:*SIN EMET CR 50/200 TABLET SA 07/08/2018 3:09:11 PM ropinirole 4 mg tablet RxNorm: 522525 2 Tablet(s) PO QHS for re stless legs 09/18/2018 10/13/2018 Inactive metformin ER 1,000 mg tablet,extended release 24hr RxNorm: 1 988849 1 Tablet(s) PO BID 09/09/2018 12/18/2018 Inactive ropinirole 4 mg tablet RxNorm: 683365 2 Tablet(s) PO QHS for re stless legs 08/21/2018 09/17/2018 Inactive doxycycline hyclate 100 mg capsule RxNorm: 8480075 1 Capsule(s) PO BID 08/07/2018 08/13/2018 Inactive ropinirole 4 mg tablet RxNorm: 984495 1 Tablet(s) PO QHS replac es 1mg dose 08/07/2018 08/20/2018 Inactive ropinirole 2 mg tablet RxNorm: 639359 TAKE 3 TABLETS BY MOUTH DAILY AT BEDTIME DO NOT EXCEED 3 TABLETS PER DAY!!!! 07/31/2018 08/06/2018 Inactive Generic For:REQUIP 2 MG TABLET 07/30/2018 3:50:28 PM Symbicort 160 mcg-4.5 mcg/actuation HFA aerosol inhaler RxNo rm: 0453246 2 Puff(s) INH BID 07/12/2018 10/09/2018 Inactive Sinemet CR 50 mg-200 mg tablet,extended release RxNorm: 8343 41 TAKE 1 TABLET BY MOUTH TWICE DAILY 07/08/2018 09/26/2018 Inactive Generic For:*S INEMET CR 50/200 TABLET SA 07/08/2018 3:09:11 PM losartan 100 mg tablet RxNorm: 744936 1 Tablet(s) PO QD replace s lisinopril 06/17/2018 12/13/2018 Inactive Novolog U-100 Insulin aspart 100 unit/mL subcutaneous soluti on RxNorm: 121680 10 Unit(s) SQ AC 06/17/2018 10/09/2018 Inactive albuterol sulfate 2.5 mg/3 mL (0.083 %) solution for n ebulization RxNorm: 305503 Milliliter(s) INH USE 1 VIAL IN NEBULIZE R EVERY FOUR HOURS NEEDED FOR WHEEZING OR SHORTNESS OF BREATH 06/13/2018 01/16/2019 Inactive Generic For:*PROVENTIL 0.83 MG/ML SOLUTN 06/13/2013 2:04:46 PM ropinirole 2 mg tablet RxNorm: 103151 3 Tablet(s) PO QH S DO NOT EXCEED 6MG (3 TABLETS) PER DAY!!!! 06/13/2018 07/31/2018 Inactive atorvastatin 40 mg tablet RxNorm: 775281 Tablet(s) TAKE 1 TABLET BY MOUTH EVERY DAY 05/13/2018 12/18/2018 Inactive Generic For:LIPI TOR 40MG TAB 05/01/2018 8:37:31 AM Sinemet CR 50 mg-200 mg tablet,extended release RxNorm: 8343 41 1 Tablet(s) PO BID 05/08/2018 07/06/2018 Inactive Lidocaine Viscous 2 % mucosal solution RxNorm: 7309334 5 Milliliter(s) PO QID as needed 05/02/2018 08/06/2018 Inactive Diflucan 100 mg tablet RxNorm: 180749 1 Tablet(s) PO QD 05/02/2018 Inactive atorvastatin 40 mg tablet RxNorm: 867361 TAKE 1 TABLET BY MOUTH EVERY DAY 05/01/2018 05/13/2018 Inactive Generic For:LIPITOR 40MG TAB 05/01/2018 8:37:31 AM nystatin 100,000 unit/mL oral suspension RxNorm: 595159 5 Unit(s) PO QID (before meals and at bedtime) 04/24/2018 04/30/2018 Inactive Ventolin HFA 90 mcg/actuation aerosol inhaler RxNorm: 312057 2 Puff(s) INH Q4H as needed one inhaler for home and one inhaler for car 04/23/201812/18 Inactive Mucinex 600 mg tablet, extended release RxNorm: 992977 1 Tablet(s) PO BID for congestion 04/22/2018 05/21/2018 Inactive prednisone 10 mg tablet RxNorm: 111950 Tablet(s) PO as directeds 08/06/2018 Inactive ropinirole 2 mg tablet RxNorm: 073524 3 Tablet(s) PO QH S DO NOT EXCEED 6MG (3 TABLETS) PER DAY!!!! 04/09/2018 05/08/2018 Inactive gabapentin 300 mg capsule RxNorm: 112270 1-2 Capsule(s) PO QHS 02/201804/08/2018 Inactive ropinirole 2 mg tablet RxNorm: 692780 1 Tablet(s) PO QHS 03/28/2018 0 04/08/2018 Inactive gabapentin 300 mg capsule RxNorm: 956538 1-2 Capsule(s) PO QHS 02/2303/29/2018 Inactive gabapentin 300 mg capsule RxNorm: 052024 1-2 Capsule(s) PO QHS 02/2203/13/2018 Inactive gabapentin 300 mg capsule RxNorm: 700317 2 Capsule(s) PO QHS 201703/11/2018 Inactive ropinirole 2 mg tablet RxNorm: 020344 1 Tablet(s) PO QHS 02/28/2018 0 03/28/2018 Inactive ropinirole 2 mg tablet RxNorm: 792045 1 Tablet(s) PO QHS 02/28/2018 0 02/27/2018 Inactive gabapentin 300 mg capsule RxNorm: 484529 1 Capsule(s) PO QHS 201702/27/2018 Inactive pantoprazole 40 mg tablet,delayed release RxNorm: 896809 1 Tablet(s) PO QD forstomach 01/23/2018 05/22/2018 Inactive Voltaren 1 % topical gel RxNorm: 772151 1 Gram(s) TOP QID to ri ght knee 01/23/2018 02/04/2018 Inactive metformin ER 500 mg tablet,extended release 24hr RxNorm: 860 975 2 Tablet(s) PO BID 01/09/2018 12/08/2018 Inactive Requip 1 mg tablet RxNorm: 319223 1 Tablet(s) PO QHS 01/09/201802/27 Inactive prednisone 20 mg tablet RxNorm: 687104 1 Tablet(s) PO T ID for 3 days then 1 po BID for 3 days then one daily for 3 days 01/02/2018 02/03/2018 Inactiv e Levaquin 500 mg tablet RxNorm: 947167 1 Tablet(s) PO QD 01/02/2018 Inactive ProAir HFA 90 mcg/actuation aerosol inhaler RxNorm: 067457 2 Puff(s) INH Q4H as needed 12/28/2017 No Stop Date Active please switch to ventolin if insurance doesn't cover montelukast 10 mg tablet RxNorm: 399730 1 Tablet(s) PO QD 12/28/2017 02/03/2018 Inactive Levaquin 500 mg tablet RxNorm: 573263 1 Tablet(s) PO QD 12/21/2017 Inactive ProAir HFA 90 mcg/actuation aerosol inhaler RxNorm: 462529 2 Puff(s) INH Q4H as needed 12/21/2017 12/27/2017 Inactive please switch to ventolin if insurance doesn't cover doxycycline hyclate 100 mg tablet RxNorm: 716531 1 Tablet(s) PO BID 12/17/2017 12/26/2017 Inactive Levemir FlexTouch U-100 Insulin 100 unit/mL (3 mL) sub cutaneous pen RxNorm: 247822 20 Unit(s) SQ QD with pen needles---Due for labs 12/11/2017 02/03/2018 Inactive Requip 1 mg tablet RxNorm: 380904 1 Tablet(s) PO QHS 12/10/201712/09 Inactive Requip 1 mg tablet RxNorm: 357816 1 Tablet(s) PO QHS 12/10/201701/09 Inactive albuterol sulfate 2.5 mg/3 mL (0.083 %) solution for n ebulization RxNorm: 817762 Milliliter(s) INH USE 1 VIAL IN NEBULIZE R EVERY FOUR HOURS NEEDED FOR WHEEZING OR SHORTNESS OF BREATH 12/05/2017 06/13/2018 Inactive Generic For:*PROVENTIL 0.83 MG/ML SOLUTN 06/13/2013 2:04:46 PM Tudorza Pressair 400 mcg/actuation breath activated RxNorm: 9717471 1 Puff(s) INH BID 12/03/2017 12/10/2017 Inactive Levemir FlexTouch U-100 Insulin 100 unit/mL (3 mL) sub cutaneous pen RxNorm: 313914 10 Unit(s) SQ QD with pen needles---Due for labs 11/16/2017 12/10/2017 Inactive Zofran ODT 4 mg disintegrating tablet RxNorm: 315887 1 Tablet(s) PO Q4H as needed for nausea 10/17/2017 02/04/2018 Inactive Efudex 5 % topical cream RxNorm: 696123 Application TOP QD prn to precancer skin lesions 10/17/2017 02/03/2018 Inactive Sinemet CR 50 mg-200 mg tablet,extended release RxNorm: 8343 41 1 Tablet(s) PO BID 10/17/2017 02/05/2018 Inactive Sinemet CR 50 mg-200 mg tablet,extended release RxNorm: 8343 41 1 Tablet(s) PO QHS 09/25/2017 10/16/2017 Inactive gabapentin 600 mg tablet RxNorm: 953999 1 Tablet(s) PO BID 08/15/20 17 08/14/2017 Inactive gabapentin 600 mg tablet RxNorm: 180971 1 Tablet(s) PO BID 08/15/20 17 12/10/2017 Inactive Novolog U-100 Insulin aspart 100 unit/mL subcutaneous soluti on RxNorm: 858586 10 Unit(s) SQ AC 08/15/2017 02/03/2018 Inactive Novolog 100 unit/mL subcutaneous solution RxNorm: 060704 10 Uni t(s) SQ AC 08/13/2017 08/14/2017 Inactive prednisone 20 mg tablet RxNorm: 907259 2 Tablet(s) PO QD 08/02/2017 1 10/04/2016 Inactive gabapentin 600 mg tablet RxNorm: 338329 Tablet(s) 1 Tab let(s) PO QHS replaces 300mg dose 07/09/2017 08/14/2017 Inactive Breo Ellipta 100 mcg-25 mcg/dose powder for inhalation RxNor m: 0057002 1 Unit Dose INH QD 07/02/2017 08/30/2017 Inactive Tudorza Pressair 400 mcg/actuation breath activated RxNorm: 7613028 1 Puff(s) INH BID 06/18/2017 12/02/2017 Inactive gabapentin 600 mg tablet RxNorm: 038146 1 Tablet(s) PO QHS repl aces 300mg dose 06/14/2017 07/08/2017 Inactive metformin ER 1,000 mg tablet,extended release 24hr RxNorm: 1 550360 1 Tablet(s) PO BID 05/29/2017 01/08/2018 Inactive cyclobenzaprine 5 mg tablet RxNorm: 165225 1 Tablet(s) PO TID 05/2906/07/2017 Inactive metformin ER 1,000 mg tablet,extended release 24hr RxNorm: 8 11401 1 Tablet(s) PO BID 05/25/2017 05/28/2017 Inactive metformin ER 1,000 mg tablet,extended release 24hr RxNorm: 8 29312 1 Tablet(s) PO BID 05/22/2017 05/24/2017 Inactive Amaryl 2 mg tablet RxNorm: 093003 1 Tablet(s) PO BID 05/01/201702/03 Inactive glimepiride 2 mg tablet RxNorm: 497447 1 Tablet(s) PO BID 04/19/2017 02/03/2018 Inactive ferrous sulfate 325 mg (65 mg iron) tablet RxNorm: 502326 1 Tab let(s) PO QHS 04/17/2017 02/03/2018 Inactive Requip 4 mg tablet RxNorm: 332197 1 Tablet(s) PO BID 04/12/201704/11 Inactive Requip 4 mg tablet RxNorm: 571998 1 Tablet(s) PO BID 04/12/201704/15 Inactive Levemir FlexTouch 100 unit/mL (3 mL) subcutaneous insulin pe n RxNorm: 183108 10 Unit(s) SQ QD with pen needles---Due for labs 04/05/2017 11/15/2017 In active Silenor 3 mg tablet RxNorm: 056708 1 Tablet(s) PO QHS 04/05/201709/25 Inactive ropinirole 4 mg tablet RxNorm: 744374 1 Tablet(s) PO QHS 03/29/2017 0 04/01/2017 Inactive ropinirole 4 mg tablet RxNorm: 741964 1 Tablet(s) PO QHS 03/29/2017 0 03/28/2017 Inactive Requip 4 mg tablet RxNorm: 531592 1 Tablet(s) PO QHS 03/28/201704/01 Inactive gabapentin 600 mg tablet RxNorm: 516152 1 Tablet(s) PO QHS repl aces 300mg dose 03/28/2017 04/15/2017 Inactive Requip 4 mg tablet RxNorm: 544619 1 Tablet(s) PO QHS 03/23/201703/27 Inactive gabapentin 600 mg tablet RxNorm: 610715 1 Tablet(s) PO QHS 03/13/20 17 03/12/2017 Inactive gabapentin 600 mg tablet RxNorm: 679693 1 Tablet(s) PO QHS 03/13/20 17 03/27/2017 Inactive gabapentin 300 mg capsule RxNorm: 642402 1 Capsule(s) PO QPM 201603/12/2017 Inactive Generic For:NEURONTIN 300 MG CAPSULE 01/22/2017 10:10:39 AM losartan 100 mg tablet RxNorm: 851164 1 Tablet(s) PO QD replace s lisinopril 02/21/2017 06/17/2018 Inactive gabapentin 300 mg capsule RxNorm: 808509 TAKE 1 CAPSULE BY MOUT H EVERY EVENING 01/22/2017 02/21/2017 Inactive Generic For:NEURONTI N 300 MG CAPSULE 01/22/2017 10:10:39 AM gabapentin 300 mg capsule RxNorm: 765875 1 Capsule(s) PO QPM 201601/21/2017 Inactive Requip 4 mg tablet RxNorm: 394459 1 Tablet(s) PO QHS 12/21/201603/20 Inactive Effient 10 mg tablet RxNorm: 128664 1 Tablet(s) PO QD 12/12/201612/23 Inactive gabapentin 300 mg capsule RxNorm: 460535 1 Capsule(s) PO QPM 201612/03/2016 Inactive gabapentin 300 mg capsule RxNorm: 850488 1 Capsule(s) PO QPM 201612/13/2016 Inactive Requip 4 mg tablet RxNorm: 605198 1 Tablet(s) PO QHS 11/28/201612/21 Inactive atorvastatin 40 mg tablet RxNorm: 163591 Tablet(s) 1 Tablet(s) PO Q D 11/22/2016 08/18/2017 Inactive atorvastatin 40 mg tablet RxNorm: 456013 1 Tablet(s) PO QD 11/23/1911/21/2016 Inactive ropinirole 1 mg tablet RxNorm: 474376 2.5 Tablet(s) PO QPM for legs/sleep 11/14/2016 11/27/2016 Inactive nystatin 100,000 unit/mL oral suspension RxNorm: 705900 5 Unit(s) PO QID swish and spit 10/31/2016 02/03/2018 Inactive fluconazole 100 mg tablet RxNorm: 339320 1 Tablet(s) PO QD 10/31/19 17 11/09/2016 Inactive doxycycline hyclate 100 mg capsule RxNorm: 7846672 1 Capsule(s) PO BID 10/03/2016 10/12/2016 Inactive Levemir FlexTouch 100 unit/mL (3 mL) subcutaneous insulin pe n RxNorm: 093673 10 Unit(s) SQ QD with pen needles 09/18/2016 04/04/2017 Inactive amitriptyline 25 mg tablet RxNorm: 523663 1 Tablet(s) P O QHS as needed for sleep 09/04/2016 10/17/2016 Inactive ropinirole 1 mg tablet RxNorm: 391317 1.5 Tablet(s) PO QPM for legs/sleep 09/04/2016 11/13/2016 Inactive amitriptyline 25 mg tablet RxNorm: 685673 1 Tablet(s) P O QHS as needed for sleep 08/22/2016 09/03/2016 Inactive clopidogrel 75 mg tablet RxNorm: 460670 1 Tablet(s) PO QD 08/10/2016 10/17/2016 Inactive Zoloft 100 mg tablet RxNorm: 053151 2 Tablet(s) PO QHS 08/10/2016 Inactive atorvastatin 40 mg tablet RxNorm: 561472 1 Tablet(s) PO QD 08/10/20 16 10/17/2016 Inactive ropinirole 1 mg tablet RxNorm: 149412 1 Tablet(s) PO QPM for le gs/sleep 08/10/2016 09/03/2016 Inactive losartan 100 mg tablet RxNorm: 797718 1 Tablet(s) PO QD replace s lisinopril 07/20/2016 02/21/2017 Inactive Zofran 4 mg tablet RxNorm: 042015 1 Tablet(s) PO Q4H as needed for nausea 07/06/2016 10/17/2016 Inactive Flagyl 500 mg tablet RxNorm: 214689 1 Tablet(s) PO TID 07/06/2016 Inactive Plavix 75 mg tablet RxNorm: 157625 1 Tablet(s) PO QD 06/08/201607/05 Inactive isosorbide mononitrate ER 30 mg tablet,extended release 24 h r RxNorm: 475289 1 Tablet(s) PO QAM 06/08/2016 08/09/2016 Inactive atorvastatin 40 mg tablet RxNorm: 655064 1 Tablet(s) PO QD 06/08/20 16 08/09/2016 Inactive hydrochlorothiazide 12.5 mg tablet RxNorm: 531781 1 Tablet(s) PO QA M 06/08/2016 07/05/2016 Inactive metformin ER 1,000 mg tablet,extended release 24hr RxNorm: 8 23067 1 Tablet(s) PO BID 06/08/2016 09/05/2016 Inactive metoprolol tartrate 25 mg tablet RxNorm: 473389 1/2 Tablet(s) PO BI D 06/08/2016 08/09/2016 Inactive Zoloft 100 mg tablet RxNorm: 809888 2 Tablet(s) PO QHS 04/03/2016 Inactive metformin ER 1,000 mg tablet,extended release 24hr RxNorm: 8 13205 Tablet(s) 1 Tablet(s) PO QD 03/30/2016 12/18/2018 Inactive Levemir FlexTouch 100 unit/mL (3 mL) subcutaneous insulin pe n RxNorm: 865947 10 Unit(s) SQ QD 03/09/2016 03/08/2016 Inactive Levemir FlexTouch 100 unit/mL (3 mL) subcutaneous insulin pe n RxNorm: 810302 10 Unit(s) SQ QD with pen needles 03/09/2016 03/20/2016 Inactive Mobic 15 mg tablet RxNorm: 268372 1 Tablet(s) PO QD for foot pain 0 02/17/2016 03/17/2016 Inactive Zoloft 100 mg tablet RxNorm: 240954 1 1/2 Tablet(s) PO QHS 01/31/20 16 04/02/2016 Inactive omeprazole 20 mg capsule,delayed release RxNorm: 003988 TAKE 2 CAPSULES BY MOUTH EVERY DAY 01/12/2016 08/09/2016 Inactive Generic For:*CHERYL LOSEC [address] 01/12/2016 8:58:34 AM Zoloft 100 mg tablet RxNorm: 512447 1/2 Tablet(s) PO QH S for 1 week then 1 tablet po q HS 12/30/2015 01/27/2016 Inactive Ventolin HFA 90 mcg/actuation aerosol inhaler RxNorm: 892843 2 Puff(s) INH QID as needed for shortness of breath 12/30/2015 02/03/2018 Inactive [AttnRPh: Saving apply/adjudicate RxGRP:SG20 RxBIN:[id number] RxPCN: ID#:[id number]] metformin ER 1,000 mg tablet,extended release 24hr RxNorm: 8 56553 1 Tablet(s) PO QD 12/20/2015 03/18/2016 Inactive clindamycin 300 mg capsule RxNorm: 392833 1 Capsule(s) PO TID 12/0512/15/2015 Inactive mupirocin 2 % topical cream RxNorm: 801142 TOP to facial lesion s twice daily 11/15/2015 12/15/2015 Inactive cefdinir 300 mg capsule RxNorm: 891916 1 Capsule(s) PO BID 11/15/19 16 11/24/2015 Inactive Medrol (Gui) 4 mg tablets in a dose pack RxNorm: 846097 Tablet(s) PO as directed 10/11/2015 12/15/2015 Inactive albuterol sulfate 2.5 mg/3 mL (0.083 %) solution for n ebulization RxNorm: 553924 INH USE 1 VIAL IN NEBULIZER EVERY FOUR H OURS NEEDED FOR WHEEZING OR SHORTNESS OF BREATH 10/05/2015 10/04/2015 Inactive Generic For:*PRO VENTIL 0.83 MG/ML SOLUTN 06/13/2013 2:04:46 PM doxycycline hyclate 100 mg capsule RxNorm: 0379073 1 Capsule(s) PO BID 10/05/2015 10/14/2015 Inactive albuterol sulfate 2.5 mg/3 mL (0.083 %) solution for n ebulization RxNorm: 690344 Milliliter(s) INH USE 1 VIAL IN NEBULIZE R EVERY FOUR HOURS NEEDED FOR WHEEZING OR SHORTNESS OF BREATH Dx: J44.9 10/05/2015 12/05/2017 Inacti ve Generic For:*PROVENTIL 0.83 MG/ML SOLUTN 06/13/2013 2:04:46 PM albuterol sulfate 2.5 mg/3 mL (0.083 %) solution for n ebulization RxNorm: 053154 3 Milliliter(s) INH USE 1 VIAL IN NEBULI ZER EVERY FOUR HOURS NEEDED FOR WHEEZING OR SHORTNESS OF BREATH 09/06/2015 10/04/2015 Inactive Generic For:*PROVENTIL 0.83 MG/ML SOLUTN 06/13/2013 2:04:46 PM Tradjenta 5 mg tablet RxNorm: 7274449 2 Tablet(s) PO QD 07/22/2015 Inactive albuterol sulfate 2.5 mg/3 mL (0.083 %) solution for n ebulization RxNorm: 376708 3 Milliliter(s) INH USE 1 VIAL IN NEBULI ZER EVERY FOUR HOURS NEEDED FOR WHEEZING OR SHORTNESS OF BREATH 06/29/2015 09/05/2015 Inactive Generic For:*PROVENTIL 0.83 MG/ML SOLUTN 06/13/2013 2:04:46 PM albuterol sulfate 2.5 mg/3 mL (0.083 %) solution for n ebulization RxNorm: 607283 Milliliter(s) INH USE 1 VIAL IN NEBULIZE R EVERY FOUR HOURS NEEDED FOR WHEEZING OR SHORTNESS OF BREATH 06/29/2015 12/04/2017 Inactive Generic For:*PROVENTIL 0.83 MG/ML SOLUTN 06/13/2013 2:04:46 PM doxycycline hyclate 100 mg tablet RxNorm: 267332 1 Tablet(s) PO BID 06/28/2015 07/07/2015 Inactive losartan 100 mg tablet RxNorm: 324216 1 Tablet(s) PO QD -replac es lisinopril 06/14/2015 09/05/2015 Inactive metformin ER 1,000 mg tablet,extended release 24hr RxNorm: 8 00199 1 Tablet(s) PO QD 06/14/2015 09/11/2015 Inactive losartan 100 mg tablet RxNorm: 027636 1 Tablet(s) PO QD -replac es lisinopril 06/14/2015 12/10/2015 Inactive Zocor 20 mg tablet RxNorm: 688224 Tablet(s) Tablet(s) 1 Tablet(s) PO QD -needs lipids labs 06/14/2015 06/14/2015 Inactive atorvastatin 40 mg tablet RxNorm: 006397 1 Tablet(s) PO QD repl aces simvastatin 06/14/2015 12/10/2015 Inactive loratadine 10 mg tablet RxNorm: 645153 Tablet(s) 1 Tablet(s) PO QD for drainage 06/14/2015 06/07/2016 Inactive Celexa 40 mg tablet RxNorm: 051514 1 Tablet(s) PO QD TA KE ONE (1) TABLET BY MOUTH DAILY 06/14/2015 12/29/2015 Inactive Generic For:HARJINDER XA 40 MG TABLET clindamycin 300 mg capsule RxNorm: 660582 2 Capsule(s) PO BID 06/0306/12/2015 Inactive metformin ER 1,000 mg tablet,extended release 24hr RxNorm: 8 04742 1 Tablet(s) PO QD 06/03/2015 06/02/2015 Inactive metformin ER 1,000 mg tablet,extended release 24hr RxNorm: 8 97228 1 Tablet(s) PO QD 06/03/2015 06/13/2015 Inactive mupirocin 2 % topical ointment RxNorm: 958382 TOP apply to open lesion of knee twice daily 06/03/2015 01/30/2016 Inactive Zocor 20 mg tablet RxNorm: 252078 Tablet(s) 1 Tablet(s ) PO QD -needs lipids labs 05/13/2015 06/13/2015 Inactive Celexa 40 mg tablet RxNorm: 531186 1 Tablet(s) PO QD TA KE ONE (1) TABLET BY MOUTH DAILY 05/13/2015 06/13/2015 Inactive Generic For:HARJINDER XA 40 MG TABLET Zocor 20 mg tablet RxNorm: 887072 Tablet(s) 1 Tablet(s ) PO QD -needs lipids labs 02/23/2015 03/24/2015 Inactive loratadine 10 mg tablet RxNorm: 998283 1 Tablet(s) PO QD for dr saenz 12/24/2014 06/13/2015 Inactive Zocor 20 mg tablet RxNorm: 948337 1 Tablet(s) PO QD -needs lipi ds labs 11/17/2014 02/23/2015 Inactive Celexa 40 mg tablet RxNorm: 248155 1 Tablet(s) PO QD 1 Tablet(s) PO QD 1 Tablet(s) PO QD Generic OKAY 11/11/2014 05/13/2015 Inactive Zocor 20 mg tablet RxNorm: 185545 1 Tablet(s) PO QD -needs lipi ds labs 11/11/2014 11/16/2014 Inactive omeprazole 20 mg capsule,delayed release RxNorm: 339968 2 Capsule(s) PO QD TAKE 2 CAPSULES BY MOUTH DAILY 10/27/2014 04/24/2015 Inactive Generi c For:*PRILOSEC 20 MG CAPSULE trazodone 50 mg tablet RxNorm: 565183 1 1/2 Tablet(s) PO QHS 201412/29/2015 Inactive losartan 100 mg tablet RxNorm: 856040 1 Tablet(s) PO QD -replac es lisinopril 10/26/2014 04/23/2015 Inactive Levaquin 500 mg tablet RxNorm: 359539 1 Tablet(s) PO QD 10/08/2014 Inactive Levaquin 500 mg tablet RxNorm: 014437 1 Tablet(s) PO QD 10/08/2014 Inactive Diflucan 100 mg tablet RxNorm: 011947 1 Tablet(s) PO QD 10/06/2014 Inactive DuoNeb 0.5 mg-3 mg(2.5 mg base)/3 mL solution for nebulizati on RxNorm: 6263000 3 Milliliter(s) INH QID 09/23/2014 08/09/2016 Inactive Ventolin HFA 90 mcg/actuation aerosol inhaler RxNorm: 100740 2 Puff(s) INH QID as needed for shortness of breath 09/21/2014 12/29/2015 Inactive [AttnRPh: Saving apply/adjudicate RxGRP:SG20 RxBIN:[id number] RxPCN: ID#:[id number]] promethazine-codeine 6.25 mg-10 mg/5 mL syrup RxNorm: 266072 1 Teaspoon(s) PO QHS as needed for cough 09/08/2014 09/20/2014 Inactive prednisone 20 mg tablet RxNorm: 776214 1 Tablet(s) PO BID 09/02/2014 09/08/2014 Inactive promethazine-codeine 6.25 mg-10 mg/5 mL syrup RxNorm: 399707 1 Teaspoon(s) PO Q4H 09/02/2014 09/20/2014 Inactive doxycycline monohydrate 100 mg capsule RxNorm: 099054 1 Capsule (s) PO BID 09/02/2014 09/07/2014 Inactive Tessalon Perles 100 mg capsule RxNorm: 697593 1 Capsule (s) PO TID as needed for cough 08/31/2014 09/20/2014 Inactive Actos 15 mg tablet RxNorm: 102860 1 Tablet(s) PO QAM 1 Tablet(s ) PO QAM 08/26/2014 09/20/2014 Inactive loratadine 10 mg tablet RxNorm: 296226 1 Tablet(s) PO QD for dr saenz 08/26/2014 10/26/2014 Inactive Zithromax 500 mg tablet RxNorm: 355637 1 Tablet(s) PO QD 08/25/2014 1 11/01/2013 Inactive Zithromax 500 mg tablet RxNorm: 066938 1 Tablet(s) PO QD 08/25/2014 1 10/25/2013 Inactive Trazadone 75mg Tablet RxNorm: 1 Tablet(s) PO QHS 08/10/20142018 Inactive Zocor 20 mg tablet RxNorm: 690959 1 Tablet(s) PO QD 08/10/20142014 Inactive Trazadone 75mg Tablet RxNorm: 1 Tablet(s) PO QHS as need ed for sleep 08/10/2014 10/08/2014 Inactive Celexa 40 mg tablet RxNorm: 670718 1 Tablet(s) PO QD 1 Tablet(s) PO QD 1 Tablet(s) PO QD Generic OKAY 06/09/2014 10/06/2014 Inactive Actos 15 mg tablet RxNorm: 432729 1 Tablet(s) PO QAM 05/12/201408/26 Inactive lisinopril 20 mg tablet RxNorm: 104078 1 Tablet(s) PO QD 05/12/2014 0 10/26/2014 Inactive TAKE ONE TABLET BY MOUTH EVERY DAY;Gener ic For:*PRINIVIL 20 MG TABLET [AttnRPh: Saving apply/adjudicate RxGRP:SG20 RxBIN:[id number] RxPCN: ID#:[id number]] hydrocodone 5 mg-acetaminophen 325 mg tablet RxNorm: 566323 1 Tablet(s) PO TID as needed for pain for severe pain 04/30/2014 08/09/2014 Inactive hydrocodone 5 mg-acetaminophen 325 mg tablet RxNorm: 448594 1 Tablet(s) PO TID as needed for pain for severe pain 04/17/2014 04/29/2014 Inactive doxycycline hyclate 100 mg capsule RxNorm: 729727 1 Capsule(s) PO BID 03/05/2014 03/04/2014 Inactive doxycycline hyclate 100 mg capsule RxNorm: 816832 1 Capsule(s) PO BID 03/05/2014 03/14/2014 Inactive albuterol sulfate 2.5 mg/3 mL (0.083 %) solution for n ebulization RxNorm: 082143 Milliliter(s) INH USE 1 VIAL IN NEBULIZE R EVERY FOUR HOURS NEEDED FOR WHEEZING OR SHORTNESS OF BREATH 03/02/2014 06/29/2015 Inactive Generic For:*PROVENTIL 0.83 MG/ML SOLUTN 06/13/2013 2:04:46 PM Celexa 40 mg tablet RxNorm: 838886 1 Tablet(s) PO QD 1 Tablet(s) PO QD replaces lexapro. Generic OKAY 01/13/2014 06/09/2014 Inactive Actos 15 mg tablet RxNorm: 907450 1 Tablet(s) PO QAM 01/07/201405/12 Inactive lisinopril 20 mg tablet RxNorm: 460121 1 Tablet(s) PO QD 12/08/2013 0 05/12/2014 Inactive TAKE ONE TABLET BY MOUTH EVERY DAY;Gener ic For:*PRINIVIL 20 MG TABLET cefdinir 300 mg capsule RxNorm: 035973 2 Capsule(s) PO QD 11/10/2013 08/09/2014 Inactive cefdinir 300 mg capsule RxNorm: 085518 2 Capsule(s) PO QD 10/09/2013 10/15/2013 Inactive Actos 15 mg tablet RxNorm: 890135 1 Tablet(s) PO QAM 10/09/201301/06 Inactive doxycycline hyclate 100 mg capsule RxNorm: 8164850 1 Capsule(s) PO Q12H 09/18/2013 09/27/2013 Inactive omeprazole 20 mg capsule,delayed release RxNorm: 779032 2 Capsule(s) PO QD TAKE 2 CAPSULES BY MOUTH DAILY 09/03/2013 03/01/2014 Inactive Generi c For:*PRILOSEC [address] Celexa 40 mg tablet RxNorm: 829108 1 Tablet(s) PO QD re places lexapro. Generic OKAY 09/03/2013 01/13/2014 Inactive Symbicort 160 mcg-4.5 mcg/actuation HFA aerosol inhaler RxNo rm: 0618841 2 Puff(s) INH BID 08/13/2013 03/23/2014 Inactive metformin 1,000 mg tablet RxNorm: 848893 1 Tablet(s) PO BID 013 08/12/2013 Inactive TAKE ONE TABLET BY MOUTH TWI CE DAILY;Generic For:GLUCOPHAGE 1,000 MG TABLET 08/27/12 Thank you Actos 15 mg tablet RxNorm: 704520 1 Tablet(s) PO QAM 06/23/201310/09 Inactive lisinopril 20 mg tablet RxNorm: 699634 1 Tablet(s) PO QD 06/23/2013 0 12/08/2013 Inactive TAKE ONE TABLET BY MOUTH EVERY DAY;Gener ic For:*PRINIVIL 20 MG TABLET albuterol sulfate 2.5 mg/3 mL (0.083 %) solution for n ebulization RxNorm: 859379 Solution for Nebulization INH USE 1 VIAL IN NEBULIZER EVERY FOUR HOURS NEEDED FOR WHEEZING OR SHORTNESS OF BREATH 06/16/2013 03/01/2014 Inactive Generic For:*PROVENTIL 0.83 MG/ML SOLUTN 06/13/2013 2:04:46 PM prednisone 10 mg tablet RxNorm: 979330 1 Tablet(s) PO BID 04/09/2013 04/13/2013 Inactive AndroGel 1.25 gram/actuation (1%) Transdermal Gel Pump RxNorm: 2 67408 TD 04/09/2013 08/09/2014 Inactive APPLY 4 PUMPS OF GEL AT BEDTIME DIRECTED;WC (Appended: Controlled substance eRx refill - RxReferenceNumber: [id number]) azithromycin 250 mg tablet RxNorm: 221359 2 Tablet(s) PO QD 013 04/16/2013 Inactive Amaryl 2 mg tablet RxNorm: 273546 1 Tablet(s) PO BID N eeds appt in 1 month (around March 21) 02/18/2013 08/12/2013 Inactive Amaryl 2 mg tablet RxNorm: 701635 1 Tablet(s) PO BID 02/18/201302/17 Inactive metformin 1,000 mg tablet RxNorm: 010415 1 Tablet(s) PO BID 013 07/27/2013 Inactive TAKE ONE TABLET BY MOUTH TWI CE DAILY;Generic For:GLUCOPHAGE 1,000 MG TABLET 08/27/12 Thank you Actos 15 mg tablet RxNorm: 297123 1 Tablet(s) PO QAM 02/04/201306/03 Inactive albuterol sulfate 2.5 mg/3 mL (0.083 %) Neb Solution RxNorm: 749785 1 Unit Dose INH Q4H prn wheezing or shortness of breath 01/30/2013 06/15/2013 Inac tive Medrol (Gui) 4 mg tablets in a dose pack RxNorm: 761513 Tablet(s) PO as directed 01/20/2013 07/15/2013 Inactive cefdinir 300 mg capsule RxNorm: 929843 1 Capsule(s) PO BID anti biotic 01/20/2013 01/29/2013 Inactive lisinopril 20 mg tablet RxNorm: 671368 Tablet(s) PO 01/13/20132012 Inactive TAKE ONE TABLET BY MOUTH EVERY DAY;Gener ic For:*PRINIVIL 20 MG TABLET citalopram 40 mg tablet RxNorm: 035508 Tablet(s) PO 01/13/20132013 Inactive TAKE ONE (1) TABLET BY MOUTH DAILY;Gener ic For:CELEXA 40 MG TABLET omeprazole 20 mg capsule,delayed release RxNorm: 477830 Capsule(s) PO TAKE 2 CAPSULES BY MOUTH DAILY 11/15/2012 09/03/2013 Inactive Generic For:*PRILOSEC [address] amoxicillin 875 mg tablet RxNorm: 719297 1 Tablet(s) PO BID 013 10/28/2012 Inactive Actos 30 mg tablet RxNorm: 937836 1 Tablet(s) PO QD 09/23/20122011 Inactive Actos 15 mg tablet RxNorm: 437762 1 Tablet(s) PO QAM 09/23/201209/22 Inactive Actos 15 mg tablet RxNorm: 381776 1 Tablet(s) PO QAM 09/23/201202/04 Inactive prednisone 20 mg tablet RxNorm: 563359 1 Tablet(s) PO BID 08/28/2012 09/03/2012 Inactive doxycycline hyclate 100 mg tablet RxNorm: 4494653 1 Tablet(s) PO BI D 08/28/2012 09/06/2012 Inactive metformin 1,000 mg tablet RxNorm: 361793 Tablet(s) PO 08/27/201201/22 Inactive TAKE ONE TABLET BY MOUTH TWICE DAILY;Gen joshua For:GLUCOPHAGE 1,000 MG TABLET 08/27/12 Thank you citalopram 40 mg tablet RxNorm: 121696 Tablet(s) PO 07/30/20122012 Inactive TAKE ONE (1) TABLET BY MOUTH DAILY;Gener ic For:CELEXA 40 MG TABLET lisinopril 20 mg tablet RxNorm: 648262 Tablet(s) PO 07/30/20122012 Inactive TAKE ONE TABLET BY MOUTH EVERY DAY;Gener ic For:*PRINIVIL 20 MG TABLET AndroGel 1.25 gram/actuation (1%) Transdermal Gel Pump RxNor m: [id number] Gel in Metered-Dose Pump TD 07/09/2012 04/08/2013 Inactive APPLY 4 PUM PS OF GEL AT BEDTIME DIRECTED;WC (Appended: Controlled substance eRx refill - RxReferenceNumber: [id number]) citalopram 40 mg tablet RxNorm: 854777 Tablet(s) PO 07/01/20122011 Inactive TAKE ONE (1) TABLET BY MOUTH DAILY;Gener ic For:CELEXA 40 MG TABLET metformin 1,000 mg tablet RxNorm: 097776 1 Tablet(s) PO BID 012 08/25/2012 Inactive TAKE 1 TABLET BY MOUTH TWICE DAILY;Generic For:GLUCOPHAGE 1,000 MG TABLET meclizine 25 mg Tab RxNorm: 714517 1 Tablet(s) PO QID prn dizziness 05/09/2012 05/18/2012 Inactive lisinopril 20 mg tablet RxNorm: 425835 Tablet(s) PO QD 04/22/2012 Inactive TAKE ONE (1) TABLET BY MOUTH DAILY;Gener ic For:*PRINIVIL 20 MG TABLET metformin 1,000 mg tablet RxNorm: 604359 Tablet(s) PO 03/19/201212/2011 Inactive TAKE 1 TABLET BY MOUTH TWICE DAILY;Gener ic For:GLUCOPHAGE 1,000 MG TABLET cefdinir 300 mg Cap RxNorm: 276991 1 Capsule(s) PO BID 11/28/2011 Inactive cefdinir 300 mg Cap RxNorm: 938442 1 Capsule(s) PO BID 11/01/2011 Inactive citalopram 40 mg tablet RxNorm: 973944 Tablet(s) PO 10/30/20112011 Inactive TAKE ONE (1) TABLET BY MOUTH DAILY;Gener ic For:CELEXA 40 MG TABLET cefdinir 300 mg Cap RxNorm: 933803 1 Capsule(s) PO BID 10/02/2011 Inactive metformin 1,000 mg Tab RxNorm: 921238 1 Tablet(s) PO BID 09/28/2011 0 01/25/2012 Inactive citalopram 40 mg Tab RxNorm: 798747 1 Tablet(s) PO QD 09/28/201111/2011 Inactive omeprazole 20 mg capsule,delayed release RxNorm: 544575 2 Capsu le(s) PO QD 09/28/2011 03/25/2012 Inactive lisinopril 20 mg Tab RxNorm: 338578 Tablet(s) PO 08/21/2011 04/21/2012 Inactive TAKE ONE (1) TABLET BY MOUTH DAILY;Generic For:*PRINIVIL 20 MG TABLET AndroGel 1.25 gram/actuation (1%) Transdermal Gel Pump RxNor m: [id number] Gel in Metered-dose Pump TD 08/21/2011 07/09/2012 Inactive APPLY 4 PUM PS OF GEL AT BEDTIME DIRECTED (Appended: Controlled substance eRx refill - RxReferenceNumber: [id number]) Lantus Solostar 100 unit/mL (3 mL) Sub-Q Insulin Pen RxNorm: 415850 30 Unit(s) SQ QD 06/20/2011 05/08/2012 Inactive Lantus Solostar 100 unit/mL (3 mL) Sub-Q Insulin Pen RxNorm: 460901 30 Unit(s) SQ QD 06/19/2011 06/19/2011 Inactive metformin 1,000 mg Tab RxNorm: 344798 1 Tablet(s) PO BID 05/12/2011 1 11/09/2010 Inactive citalopram 40 mg Tab RxNorm: 192656 1 Tablet(s) PO QD 03/06/201105/2011 Inactive metformin 1,000 mg Tab RxNorm: 421408 1 Tablet(s) PO BID 12/27/2010 0 04/25/2011 Inactive lisinopril 20 mg Tab RxNorm: 362450 Tablet(s) PO TAKE 1 TABLET BY MOUTH EVERY DAY;Generic For:*PRINIVIL 20 MG TABLET 12/26/2010 08/20/2011 Inactive Ceftin 500 mg Tab RxNorm: 306656 1 Tablet(s) PO BID 12/19/20102010 Inactive omeprazole 20 mg Cap, Delayed Release RxNorm: 661009 2 Capsule( s) PO QD 09/13/2010 03/11/2011 Inactive Byetta 10 mcg/0.04 mL per dose Sub-Q Pen Injector RxNorm: 84 7913 1 Unit Dose SQ BID 09/07/2010 10/06/2010 Inactive Celexa 40 mg tablet RxNorm: 873875 1 Tablet(s) PO QD re places lexapro. Generic OKAY 08/09/2010 02/04/2011 Inactive Actos 30 mg Tab RxNorm: 249161 1 Tablet(s) PO QD 08/09/2010 04/02/2011 Inactive lisinopril 20 mg Tab RxNorm: 805547 1 Tablet(s) PO QD 08/09/201011/22 Inactive metformin 1,000 mg Tab RxNorm: 974651 1 Tablet(s) PO BID 08/09/2010 0 12/06/2010 Inactive Metformin 1,000 mg Tab RxNorm: 814827 1 Tablet(s) PO BID 04/26/2010 0 04/25/2010 Inactive metformin 1,000 mg Tab RxNorm: 224100 1 Tablet(s) PO BID 04/26/2010 1 Inactive Lomotil 2.5 mg-0.025 mg Tab RxNorm: 2421238 1 Tablet(s) PO TID 1-2 TABS THREE TIMES DAILY 04/05/2010 04/07/2010 Inactive Mupirocin 2 % Topical Cream RxNorm: 671251 TOP BID 04/05/201003/25 Inactive lisinopril 20 mg Tab RxNorm: 776774 1 Tablet(s) PO QD 03/29/201010/2009 Inactive Actos 30 mg Tab RxNorm: 157846 1 Tablet(s) PO QD 03/29/2010 07/26/2010 Inactive Lisinopril 20 mg Tab RxNorm: 589415 1 Tablet(s) PO QD 02/27/201001/2010 Inactive Actos 30 mg Tab RxNorm: 672161 1 Tablet(s) PO QD 02/14/2010 03/28/2010 Inactive Celexa 40 mg Tab RxNorm: 324922 1 Tablet(s) PO QD replaces lexapro 01/13/2010 07/11/2010 Inactive Cyclobenzaprine 10 mg Tab RxNorm: 016291 1 Tablet(s) PO TID prn spasm 12/23/2009 01/21/2010 Inactive Cyclobenzaprine 10 mg Tab RxNorm: 825670 1 Tablet(s) PO TID 010 12/22/2009 Inactive Hydrocodone-Acetaminophen 7.5 mg-750 mg Tab RxNorm: 625002 1 Ta blet(s) PO Q4-6H 12/23/2009 12/22/2009 Inactive aspirin 81 mg tablet RxNorm: 270685 1 Tablet(s) PO QD No Start Date Active isosorbide mononitrate ER 60 mg tablet,extended release 24 h r RxNorm: 696802 1 Tablet(s) PO QD No Start Date Active amlodipine 5 mg tablet RxNorm: 507130 1 Tablet(s) PO QD No Start Date Active Vitamin D3 1,000 unit tablet RxNorm: 589610 3 Tablet(s) PO QD No St art Date 10/26/2014 Inactive Lexapro 20 mg Tab RxNorm: 770187 1 Tablet(s) PO QD No Start Date 12/24 Inactive loperamide 2 mg tablet RxNorm: 360407 Tablet(s) PO PRN No Start Date 06/07/2016 Inactive Levemir FlexTouch U-100 Insulin 100 unit/mL (3 mL) sub cutaneous pen RxNorm: 084246 22 Unit(s) SQ QD No Start Date 12/21/2019 Inactive Janumet 50 mg-1,000 mg Tab RxNorm: 254599 1 Tablet(s) PO BID No Sta rt Date 01/12/2010 Inactive Levemir U-100 Insulin 100 unit/mL subcutaneous solution RxNo rm: 204925 10 Unit(s) SQ QHS No Start Date 12/08/2018 Inactive Medrol (Gui) 4 mg tablets in a dose pack RxNorm: 934311 Tablet(s) PO Use as directed No Start Date 12/22/2018 Inactive aspirin 325 mg tablet RxNorm: 783699 1 Tablet(s) PO QD No Start Date 08/09/2016 Inactive Efudex 5 % Topical Cream RxNorm: 275642 Application TOP QD prn fto skin lesion No Start Date 08/12/2013 Inactive nitroglycerin 0.4 mg sublingual tablet RxNorm: 068459 Tablet(s) SL as needed No Start Date 12/18/2018 Inactive levofloxacin 500 mg tablet RxNorm: 273103 1 Tablet(s) PO QD No Star t Date 08/06/2018 Inactive ferrous sulfate 325 mg (65 mg iron) tablet RxNorm: 655647 1 Tab let(s) PO QHS No Start Date 04/16/2017 Inactive fluorouracil 5 % topical cream RxNorm: 510121 1 TOP No Start James e 08/06/2018 Inactive Vitamin D3 1,000 unit capsule RxNorm: 628934 1 Capsule(s) PO QD No Start Date 02/03/2018 Inactive Hydrocodone-Acetaminophen 7.5 mg-750 mg Tab RxNorm: 318209 1 Ta blet(s) PO PRN No Start Date 08/09/2014 Inactive pantoprazole 40 mg tablet,delayed release RxNorm: 022876 1 Tabl et(s) PO QD No Start Date 01/22/2018 Inactive omeprazole 20 mg Cap, Delayed Release RxNorm: 438602 2 Capsule( s) PO QD No Start Date 09/12/2010 Inactive DuoNeb 0.5 mg-3 mg(2.5 mg base)/3 mL solution for nebulizati on RxNorm: 6236835 INH Q4H as needed No Start Date 10/22/2018 Inactive Lyrica 75 mg capsule RxNorm: 753076 2 Capsule(s) PO QHS No Start Da te 03/09/2019 Inactive isosorbide mononitrate ER 30 mg tablet,extended release 24 h r RxNorm: 031101 1 Tablet(s) PO QD No Start Date 12/08/2018 Inactive Tradjenta 5 mg tablet RxNorm: 1213105 1 Tablet(s) PO QD No Start Da te 08/09/2016 Inactive Tudorza Pressair 400 mcg/actuation breath activated RxNorm: 4742896 1 Puff(s) INH BID No Start Date 06/17/2017 Inactive Lantus Solostar 100 unit/mL (3 mL) Sub-Q Insulin Pen RxNorm: 671105 30 Unit(s) SQ QD No Start Date 06/18/2011 Inactive Requip 4 mg tablet RxNorm: 207369 1 Tablet(s) PO BID No Start Date Inactive Symbicort 160 mcg-4.5 mcg/actuation HFA aerosol inhaler RxNo rm: 3611457 2 Puff(s) INH BID No Start Date 07/11/2018 Inactive atorvastatin 40 mg tablet RxNorm: 771206 1 Tablet(s) PO QD No Start Date 12/18/2018 Inactive tramadol 50 mg tablet RxNorm: 027595 1 Tablet(s) PO TID as needed for pain (take alone with two extra strength tylenol) No Start Date 01/16/2019 Inactive Symbicort 160 mcg-4.5 mcg/actuation HFA aerosol inhaler RxNo rm: 3214001 2 Puff(s) INH BID No Start Date 08/12/2013 Inactive Vitamin D3 5,000 unit tablet RxNorm: 734686 1 Tablet(s) PO QD No St art Date 05/08/2019 Inactive albuterol sulfate 2.5 mg/3 mL (0.083 %) Neb Solution RxNorm: 561546 1 Unit Dose INH Q4H prn wheezing or shortness of breath No Start Date 01/29/2013 Inac tive Ranexa 500 mg tablet,extended release RxNorm: 493519 1 Tablet(s ) PO BID No Start Date 02/03/2018 Inactive Advair Diskus 500 mcg-50 mcg/dose powder for inhalation RxNo rm: 7604516 1 Puff(s) INH BID No Start Date 08/09/2016 Inactive clopidogrel 75 mg tablet RxNorm: 158584 1 Tablet(s) PO QD No Start Date 05/01/2018 Inactive metformin 1,000 mg Tab RxNorm: 115377 1 Tablet(s) PO BID No Start D ate 08/12/2013 Inactive Silenor 3 mg tablet RxNorm: 717761 1 Tablet(s) PO QHS No Start Date 0 04/04/2017 Inactive Medrol (Gui) 4 mg tablets in a dose pack RxNorm: 422790 Tablet(s) PO as directed No Start Date 01/19/2013 Inactive Requip 4 mg tablet RxNorm: 766874 1 Tablet(s) PO BID No Start Date Inactive clopidogrel 75 mg tablet RxNorm: 746984 1 Tablet(s) PO QD No Start Date 02/03/2018 Inactive Tradjenta 5 mg tablet RxNorm: 4289557 1 Tablet(s) PO QD No Start Da te 02/03/2018 Inactive ProAir HFA 90 mcg/Actuation Aerosol Inhaler RxNorm: 193665 2 Pu ff(s) INH PRN No Start Date 07/09/2012 Inactive Tessalon Perles 100 mg capsule RxNorm: 040592 1 Capsule (s) PO TID as needed for cough No Start Date 08/30/2014 Inactive ferrous sulfate 325 mg (65 mg iron) tablet RxNorm: 392507 1 Tab let(s) PO QD No Start Date 05/08/2019 Inactive pioglitazone 15 mg tablet RxNorm: 622151 1 Tablet(s) PO QD No Start Date 09/20/2014 Inactive Lexapro Oral RxNorm: Oral No Start Date 12/13/2009 Inactive Breo Ellipta 100 mcg-25 mcg/dose powder for inhalation RxNor m: 4529137 1 Puff(s) INH BID No Start Date 05/31/2015 Inactive Tylenol Extra Strength 500 mg tablet RxNorm: 743917 2 T ablet(s) PO QHS along with ropironole No Start Date 12/18/2018 Inactive tramadol 50 mg tablet RxNorm: 918002 1 Tablet(s) PO QID as need ed for pain No Start Date 12/24/2018 Inactive cyclobenzaprine 10 mg Tab RxNorm: 939831 Oral No Start Date 12/22 Inactive Levemir FlexTouch 100 unit/mL (3 mL) subcutaneous insulin pe n RxNorm: 171451 10 Unit(s) SQ QD No Start Date 03/08/2016 Inactive amlodipine 5 mg tablet RxNorm: 106996 1 Tablet(s) PO QD No Start Da te 08/09/2016 Inactive Novolog 100 unit/mL subcutaneous solution RxNorm: 292294 10 Uni t(s) SQ AC No Start Date 08/12/2017 Inactive Levemir FlexTouch 100 unit/mL (3 mL) subcutaneous insulin pe n RxNorm: 832514 25 Unit(s) SQ QPM No Start Date 08/06/2018 Inactive Farxiga 5 mg tablet RxNorm: 7341949 1 Tablet(s) PO QD No Start Date 0 10/05/2014 Inactive DuoNeb 0.5 mg-3 mg(2.5 mg base)/3 mL solution for nebulizati on RxNorm: 4359846 inhalation No Start Date 09/23/2014 Inactive Doxycycline 100 mg Cap RxNorm: 627348 1 Capsule(s) PO BID No Start Date 12/18/2010 Inactive Vitamin B12 1000mcg Tablet RxNorm: 1 Tablet(s) PO QD No Start Date 02/03/2018 Inactive Hydrocodone-Acetaminophen 7.5 mg-750 mg Tab RxNorm: 790002 1 Ta blet(s) PO Q6-8H No Start Date 12/22/2009 Inactive Xigduo XR 5 mg-1,000 mg tablet,extended release RxNorm: 1593 833 1 Tablet(s) PO QD No Start Date 05/31/2015 Inactive cyanocobalamin (vit B-12) 1,000 mcg/mL injection solution Rx Norm: 527157 1 injection weekly for 4 weeks 1 Milliliter(s) Inj No Start Date 05/08/2019 Inactive AndroGel 1.25 g/Actuation (1%) Transdermal Gel Pump RxNorm: 3896858 TD Apply 4pumps daily No Start Date 08/21/2011 Inactive Actoplus MET 15 mg-850 mg Tab RxNorm: 621348 1 Tablet(s) PO BID No Start Date 12/18/2010 Inactive Amaryl 2 mg tablet RxNorm: 557194 1 Tablet(s) PO BID No Start Date Inactive Levemir FlexTouch 100 unit/mL (3 mL) subcutaneous insulin pe n RxNorm: 772036 20 Unit(s) SQ QD No Start Date 06/12/2016 Inactive Symbicort 160 mcg-4.5 mcg/actuation HFA aerosol inhaler RxNo rm: 2029744 2 Puff(s) INH BID No Start Date 02/03/2018 Inactive Symbicort 160 mcg-4.5 mcg/Actuation Inhalation HFA Aer osol Inhaler RxNorm: 7114301 2 INH BID No Start Date 12/18/2010 Inactive Farxiga 5 mg tablet RxNorm: 7507889 1 Tablet(s) PO QD No Start Date 0 03/01/2015 Inactive magnesium oxide 400 mg (241.3 mg magnesium) tablet RxNorm: 1 95646 1 Tablet(s) PO QHS No Start Date 05/08/2019 Inactive Tradjenta 5 mg tablet RxNorm: 5661358 2 Tablet(s) PO QD No Start Da te 07/21/2015 Inactive Levemir FlexTouch U-100 Insulin 100 unit/mL (3 mL) sub cutaneous pen RxNorm: 736312 40 Unit(s) SQ QD No Start Date 08/06/2018 Inactive Sinemet CR 50 mg-200 mg tablet,extended release RxNorm: 8343 41 1 Tablet(s) PO QHS No Start Date 09/24/2017 Inactive metoprolol tartrate 25 mg tablet RxNorm: 038302 1/2 Tablet(s) P O BID No Start Date 02/03/2018 Inactive Requip 4 mg tablet RxNorm: 098512 1 Tablet(s) PO QHS No Start Date Inactive Ventolin HFA 90 mcg/actuation aerosol inhaler RxNorm: 757547 2 Puff(s) INH Q4H as needed No Start Date 04/22/2018 Inactive B12 5,000 mcg-100 mcg sublingual lozenge RxNorm: 878389 IM as d irected No Start Date 05/08/2019 Inactive ropinirole 1 mg tablet RxNorm: 295579 1 Tablet(s) PO QHS No Start D ate 08/06/2018 Inactive Percocet 5 mg-325 mg tablet RxNorm: 3961146 1 Tablet(s) PO Q4H as needed for pain (Dr Rizzo) No Start Date 10/22/2018 Inactive hydrocodone 5 mg-acetaminophen 325 mg tablet RxNorm: 468641 1 Tablet(s) PO TID as needed for pain for severe pain No Start Date 04/16/2014 Inactive scopolamine 1.5 mg 72 hr Transderm Patch RxNorm: 716596 Application TD Q72H for dizziness No Start Date 08/12/2013 Inactive ipratropium-albuterol 0.5 mg-3 mg(2.5 mg base)/3 mL ne bulization soln RxNorm: 1463837 1 Unit Dose INH Q4H No Start Date 01/16/2019 Inactive Medication Administered No Medication Administered data Immunizations Vaccine Codes Date Status Influenza CVX: 135 08/07/2019 Complete Pneumococcal CVX: 33 07/24/2017 Complete Influenza CVX: 135 06/13/2016 Complete Pneumococcal CVX: 133 06/13/2016 Complete Influenza CVX: 141 07/10/2012 Pneumovax Unknown 07/10/2012 Results Observation Observation Code Item Item Code Result Date S ervice Location COMPLETE BLOOD COUNT [id number] WBC 5.5 10e9/L 06/17/20 19 Unknown COMPLETE BLOOD COUNT [id number] RBC 3.92 10e12/L 2018 Unknown COMPLETE BLOOD COUNT 5301215 HEMOGLOBIN 10.9 g/dL 06/17/20 19 Unknown COMPLETE BLOOD COUNT 0757947 HEMATOCRIT 34.8 % 06/17/20 19 Unknown COMPLETE BLOOD COUNT 4534298 MCV 88.8 fL 9 Unknown COMPLETE BLOOD COUNT 6316381 MCH 27.8 pg 9 Unknown COMPLETE BLOOD COUNT 0840676 MCHC 31.3 g/dL 9 Unknown COMPLETE BLOOD COUNT 0569283 PLATELET COUNT 239 10e9/L Unknown COMPLETE BLOOD COUNT 5210527 Mean Plt Volume 10.0 fL Unknown COMPLETE BLOOD COUNT 9011599 Neut Auto 68.0 % 9 Unknown COMPLETE BLOOD COUNT 7811051 Lymph Auto 14.8 % 06/17/20 19 Unknown COMPLETE BLOOD COUNT 1745845 [place] Auto 13.1 % 9 Unknown COMPLETE BLOOD COUNT 2057170 RDW 14.7 % 9 Unknown COMPLETE BLOOD COUNT 5822065 Eos Auto 3.6 % 9 Unknown COMPLETE BLOOD COUNT 1348267 Baso Auto 0.5 % 9 Unknown COMPLETE BLOOD COUNT 2591552 Neutrophil Abs 3.74 10e9/L Unknown COMPLETE BLOOD COUNT 0793159 Lymphocyte Abs 0.81 10e9/L Unknown COMPLETE BLOOD COUNT 4435445 Monocyte Abs 0.72 10e9/L 05/26 Unknown COMPLETE BLOOD COUNT 4841984 Eosinophil Abs 0.20 10e9/L Unknown COMPLETE BLOOD COUNT 0552993 RDW-SD 46.4 fL 9 Unknown COMPLETE BLOOD COUNT 1738928 Basophil Abs 0.03 10e9/L 05/26 Unknown IRON 78711 Iron 36 ug/dL 06/17/2019 Unknown VITAMIN B 12 57335 VITAMIN B12 540 pg/mL 06/17/2019 Unkn own GFR CALC 5139210 GFR Non Afr Amr 59 mL/min 06/17/2019 Unk nown GFR CALC 0327703 GFR Afr Amr >60 mL/min 06/17/2019 Unknow n ERYTHROCYTE SEDIMENTATION RATE 57374 Sed Rate 34 mm/hr 06/17/2019 Unknown THYROID STIMULATING HORMONE 73642 TSH 2.217 uIU/mL 06/17/2019 Unknown COMPREHENSIVE METABOLIC 39825 AST 12 U/L 2018 Unknown COMPREHENSIVE METABOLIC 07582 ALT 11 U/L 2018 Unknown COMPREHENSIVE METABOLIC 40274 BUN 17 mg/dL 2018 Unknown COMPREHENSIVE METABOLIC 27339 ALBUMIN 3.9 g/dL 2018 Unknown COMPREHENSIVE METABOLIC 83772 CHLORIDE 103 mmol/L 06/17 Unknown COMPREHENSIVE METABOLIC 24010 Bili Total 0.4 mg/dL 06/17 Unknown COMPREHENSIVE METABOLIC 19535 ALK PHOS 51 U/L 2018 Unknown COMPREHENSIVE METABOLIC 41600 SODIUM 140 mmol/L 06/17 Unknown COMPREHENSIVE METABOLIC 41203 CREATININE 1.20 mg/dL 05/26 Unknown COMPREHENSIVE METABOLIC 08849 CALCIUM 8.9 mg/dL 2018 Unknown COMPREHENSIVE METABOLIC 97099 POTASSIUM 4.5 mmol/L 06/17 Unknown COMPREHENSIVE METABOLIC 65867 Total Protein 6.1 g/dL Unknown COMPREHENSIVE METABOLIC 66533 Glucose 108 mg/dL 2018 Unknown COMPREHENSIVE METABOLIC 53416 Bicarbonate 27 mmol/L 05/26 Unknown COMPREHENSIVE METABOLIC 36495 AGAP 10 mmol/L 2018 Unknown FERRITIN 74190 FERRITIN 35.5 ng/mL 05/08/2019 Unknown VITAMIN D TOTAL (25 HYDROXY) 87648 Vitamin D 25 OH 26.0 ng/mL 05/08/2019 Unknown GLYCOSYLATED HEMOGLOBIN TEST 88906 Hgb A1c 88661-7 8.2 % 0 05/08/2019 Unknown MEAN GLUC 9708678 Calc Mean Gluc 189 mg/dL 05/08/2019 Unkn own GFR CALC 0233353 GFR Non Afr Amr >60 mL/min 05/08/2019 Un known GFR CALC 2286892 GFR Afr Amr >60 mL/min 05/08/2019 Unknow n VITAMIN B 12 93859 VITAMIN B12 197 pg/mL 05/08/2019 Unkn own IRON 29658 Iron 34 ug/dL 05/08/2019 Unknown COMPLETE BLOOD COUNT 7471337 WBC 6.9 10e9/L 05/08/20 19 Unknown COMPLETE BLOOD COUNT 4772519 RBC 3.95 10e12/L 2018 Unknown COMPLETE BLOOD COUNT 4181739 HEMOGLOBIN 11.1 g/dL 05/08/20 19 Unknown COMPLETE BLOOD COUNT 3493754 HEMATOCRIT 34.9 % 05/08/20 19 Unknown COMPLETE BLOOD COUNT 7878808 MCV 88.4 fL 9 Unknown COMPLETE BLOOD COUNT 5903450 MCH 28.1 pg 9 Unknown COMPLETE BLOOD COUNT 8787127 MCHC 31.8 g/dL 9 Unknown COMPLETE BLOOD COUNT 6080979 PLATELET COUNT 217 10e9/L Unknown COMPLETE BLOOD COUNT 3952479 Mean Plt Volume 9.6 fL Unknown COMPLETE BLOOD COUNT 9705594 Neut Auto 77.6 % 9 Unknown COMPLETE BLOOD COUNT 2568168 Lymph Auto 10.7 % 05/08/20 19 Unknown COMPLETE BLOOD COUNT 6339998 [place] Auto 10.4 % 9 Unknown COMPLETE BLOOD COUNT 6114782 RDW 14.7 % 9 Unknown COMPLETE BLOOD COUNT 5238251 Eos Auto 1.2 % 9 Unknown COMPLETE BLOOD COUNT 4523395 Baso Auto 0.1 % 9 Unknown COMPLETE BLOOD COUNT 1666117 Neutrophil Abs 5.35 10e9/L Unknown COMPLETE BLOOD COUNT 8947615 Lymphocyte Abs 0.74 10e9/L Unknown COMPLETE BLOOD COUNT 7492263 Monocyte Abs 0.72 10e9/L 04/24 Unknown COMPLETE BLOOD COUNT 5874998 Eosinophil Abs 0.08 10e9/L Unknown COMPLETE BLOOD COUNT 4716422 RDW-SD 46.6 fL 9 Unknown COMPLETE BLOOD COUNT 2139109 Basophil Abs 0.01 10e9/L 04/24 Unknown COMPREHENSIVE METABOLIC 51476 AST 13 U/L 2018 Unknown COMPREHENSIVE METABOLIC 67530 ALT 9 U/L 2018 Unknown COMPREHENSIVE METABOLIC 81447 BUN 18 mg/dL 2018 Unknown COMPREHENSIVE METABOLIC 84852 ALBUMIN 4.3 g/dL 2018 Unknown COMPREHENSIVE METABOLIC 97911 CHLORIDE 99 mmol/L 2018 Unknown COMPREHENSIVE METABOLIC 35389 Bili Total 0.4 mg/dL 05/08 Unknown COMPREHENSIVE METABOLIC 57697 ALK PHOS 48 U/L 2018 Unknown COMPREHENSIVE METABOLIC 00185 SODIUM 137 mmol/L 05/08 Unknown COMPREHENSIVE METABOLIC 14617 CREATININE 0.79 mg/dL 04/24 Unknown COMPREHENSIVE METABOLIC 63072 CALCIUM 9.5 mg/dL 2018 Unknown COMPREHENSIVE METABOLIC 20626 POTASSIUM 4.0 mmol/L 05/08 Unknown COMPREHENSIVE METABOLIC 91031 Total Protein 6.3 g/dL Unknown COMPREHENSIVE METABOLIC 71538 Glucose 232 mg/dL 2018 Unknown COMPREHENSIVE METABOLIC 85023 Bicarbonate 27 mmol/L 04/24 Unknown COMPREHENSIVE METABOLIC 43045 AGAP 11 mmol/L 2018 Unknown GLYCOSYLATED HEMOGLOBIN TEST 12379 Hgb A1c 74037-8 8.9 % 0 12/10/2018 Unknown MEAN GLUC 6105815 Calc Mean Gluc 209 mg/dL 12/10/2018 Unkn own LIPID GROUP 69166 Cholesterol 145 mg/dL 12/09/2018 Unkno wn LIPID GROUP 86335 Triglyceride 235 mg/dL 12/09/2018 Unkn own LIPID GROUP 55342 HDL CHOLESTEROL 40 mg/dL 12/09/2018 U nknown LIPID GROUP 97930 Chol/HDL Ratio 3.62 ratio 12/09/2018 U nknown LIPID GROUP 18449 NON-HDL Chol 105 mg/dL 12/09/2018 Unkn own LIPID GROUP 02358 LDL Cholesterol 58 mg/dL 12/09/2018 U nknown THYROID STIMULATING HORMONE 39214 TSH 1.071 uIU/mL 12/09/2018 Unknown GFR CALC 5780894 GFR Non Afr Amr >60 mL/min 12/09/2018 Un known GFR CALC 7881431 GFR Afr Amr >60 mL/min 12/09/2018 Unknow n COMPLETE BLOOD COUNT 1818623 WBC 7.6 10e9/L 12/10/19 19 Unknown COMPLETE BLOOD COUNT 7172078 RBC 3.97 10e12/L 2018 Unknown COMPLETE BLOOD COUNT 3664561 HEMOGLOBIN 11.4 g/dL 12/10/19 19 Unknown COMPLETE BLOOD COUNT 7277884 HEMATOCRIT 35.8 % 12/10/19 19 Unknown COMPLETE BLOOD COUNT 4779832 MCV 90.2 fL 9 Unknown COMPLETE BLOOD COUNT 2384699 MCH 28.7 pg 9 Unknown COMPLETE BLOOD COUNT 8024902 MCHC 31.8 g/dL 9 Unknown COMPLETE BLOOD COUNT 3168809 PLATELET COUNT 200 10e9/L Unknown COMPLETE BLOOD COUNT 8200706 Mean Plt Volume 10.1 fL Unknown COMPLETE BLOOD COUNT 1357794 Neut Auto 79.0 % 9 Unknown COMPLETE BLOOD COUNT 4605070 Lymph Auto 8.3 % 12/10/19 19 Unknown COMPLETE BLOOD COUNT 5939689 [place] Auto 10.8 % 9 Unknown COMPLETE BLOOD COUNT 2409984 RDW 14.6 % 9 Unknown COMPLETE BLOOD COUNT 3713605 Eos Auto 1.5 % 9 Unknown COMPLETE BLOOD COUNT 5618713 Baso Auto 0.4 % 9 Unknown COMPLETE BLOOD COUNT 1206949 Neutrophil Abs 6.00 10e9/L Unknown COMPLETE BLOOD COUNT 6318236 Lymphocyte Abs 0.63 10e9/L Unknown COMPLETE BLOOD COUNT 0574722 Monocyte Abs 0.82 10e9/L 11/22 Unknown COMPLETE BLOOD COUNT 8845409 Eosinophil Abs 0.11 10e9/L Unknown COMPLETE BLOOD COUNT 5832519 RDW-SD 46.9 fL 9 Unknown COMPLETE BLOOD COUNT 0346264 Basophil Abs 0.03 10e9/L 11/22 Unknown COMPREHENSIVE METABOLIC 30924 AST 11 U/L 2018 Unknown COMPREHENSIVE METABOLIC 37502 ALT 11 U/L 2018 Unknown COMPREHENSIVE METABOLIC 79952 BUN 21 mg/dL 2018 Unknown COMPREHENSIVE METABOLIC 51120 ALBUMIN 4.7 g/dL 2018 Unknown COMPREHENSIVE METABOLIC 77776 CHLORIDE 99 mmol/L 2018 Unknown COMPREHENSIVE METABOLIC 03842 Bili Total 0.4 mg/dL 12/09 Unknown COMPREHENSIVE METABOLIC 33143 ALK PHOS 73 U/L 2018 Unknown COMPREHENSIVE METABOLIC 89240 SODIUM 137 mmol/L 12/09 Unknown COMPREHENSIVE METABOLIC 25182 CREATININE 1.12 mg/dL 11/22 Unknown COMPREHENSIVE METABOLIC 41774 CALCIUM 9.4 mg/dL 2018 Unknown COMPREHENSIVE METABOLIC 30227 POTASSIUM 4.2 mmol/L 12/09 Unknown COMPREHENSIVE METABOLIC 49003 Total Protein 6.8 g/dL Unknown COMPREHENSIVE METABOLIC 63807 Glucose 194 mg/dL 2018 Unknown COMPREHENSIVE METABOLIC 64310 Bicarbonate 30 mmol/L 11/22 Unknown COMPREHENSIVE METABOLIC 28524 AGAP 8 mmol/L 2018 Unknown FREE T4 98906 T4 Free 0.86 ng/dL 12/09/2018 Unknown COMPLETE BLOOD COUNT 2542294 WBC 6.8 10e9/L 04/17/20 17 Unknown COMPLETE BLOOD COUNT 1235852 RBC 3.86 10e12/L 2016 Unknown COMPLETE BLOOD COUNT 1064575 HEMOGLOBIN 9.8 g/dL 04/17/20 17 Unknown COMPLETE BLOOD COUNT 3942146 HEMATOCRIT 31.1 % 04/17/20 17 Unknown COMPLETE BLOOD COUNT 2272377 MCV 80.6 fL 7 Unknown COMPLETE BLOOD COUNT 7054911 MCH 25.4 pg 7 Unknown COMPLETE BLOOD COUNT 0583222 MCHC 31.5 g/dL 7 Unknown COMPLETE BLOOD COUNT 0015375 PLATELET COUNT 247 10e9/L Unknown COMPLETE BLOOD COUNT 2703985 Mean Plt Volume 9.7 fL Unknown COMPLETE BLOOD COUNT 3324331 Neut Auto 74.1 % 7 Unknown COMPLETE BLOOD COUNT 7830549 Lymph Auto 12.0 % 04/17/20 17 Unknown COMPLETE BLOOD COUNT 4509428 [place] Auto 10.8 % 7 Unknown COMPLETE BLOOD COUNT 9487609 RDW 15.9 % 7 Unknown COMPLETE BLOOD COUNT 8778254 Eos Auto 2.5 % 7 Unknown COMPLETE BLOOD COUNT 3574947 Baso Auto 0.6 % 7 Unknown COMPLETE BLOOD COUNT 3861931 Neutrophil Abs 5.04 10e9/L Unknown COMPLETE BLOOD COUNT 9533180 Lymphocyte Abs 0.82 10e9/L Unknown COMPLETE BLOOD COUNT 2813927 Monocyte Abs 0.73 10e9/L 03/25 Unknown COMPLETE BLOOD COUNT 7889985 Eosinophil Abs 0.17 10e9/L Unknown COMPLETE BLOOD COUNT 9732152 RDW-SD 44.4 fL 7 Unknown COMPLETE BLOOD COUNT 6788903 Basophil Abs 0.04 10e9/L 03/25 Unknown MEAN GLUC 5832184 Calc Mean Gluc 223 mg/dL 04/17/2017 Unkn own GFR CALC 1535622 GFR Non Afr Amr >60 mL/min 04/17/2017 Un known GFR CALC 7847002 GFR Afr Amr >60 mL/min 04/17/2017 Unknow n GLYCOSYLATED HEMOGLOBIN TEST 26287 Hgb A1c 63095-0 9.4 % 0 04/17/2017 Unknown IRON 69161 Iron 37 ug/dL 04/17/2017 Unknown VITAMIN B 12 98458 VITAMIN B12 280 pg/mL 04/17/2017 Unkn own THYROID STIMULATING HORMONE 35489 TSH 2.481 uIU/mL 04/17/2017 Unknown COMPREHENSIVE METABOLIC 69617 AST 13 U/L 2016 Unknown COMPREHENSIVE METABOLIC 46680 ALT 12 U/L 2016 Unknown COMPREHENSIVE METABOLIC 38590 BUN 18 mg/dL 2016 Unknown COMPREHENSIVE METABOLIC 25948 ALBUMIN 4.7 g/dL 2016 Unknown COMPREHENSIVE METABOLIC 95027 CHLORIDE 103 mmol/L 04/17 Unknown COMPREHENSIVE METABOLIC 87754 Bili Total 0.4 mg/dL 04/17 Unknown COMPREHENSIVE METABOLIC 04073 ALK PHOS 49 U/L 2016 Unknown COMPREHENSIVE METABOLIC 52201 SODIUM 140 mmol/L 04/17 Unknown COMPREHENSIVE METABOLIC 47656 CREATININE 1.14 mg/dL 03/25 Unknown COMPREHENSIVE METABOLIC 53894 CALCIUM 9.4 mg/dL 2016 Unknown COMPREHENSIVE METABOLIC 88007 POTASSIUM 4.4 mmol/L 04/17 Unknown COMPREHENSIVE METABOLIC 32261 Total Protein 6.7 g/dL Unknown COMPREHENSIVE METABOLIC 76104 Glucose 266 mg/dL 2016 Unknown COMPREHENSIVE METABOLIC 35644 Bicarbonate 25 mmol/L 03/25 Unknown COMPREHENSIVE METABOLIC 70595 AGAP 12 mmol/L 2016 Unknown FERRITIN 13207 FERRITIN 10.0 ng/mL 04/17/2017 Unknown COMPLETE BLOOD COUNT 1236777 WBC 6.8 10e9/L 12/22/19 17 Unknown COMPLETE BLOOD COUNT 4705689 RBC 3.70 10e12/L 2016 Unknown COMPLETE BLOOD COUNT 4259559 HEMOGLOBIN 8.0 g/dL 12/22/19 17 Unknown COMPLETE BLOOD COUNT 5042740 HEMATOCRIT 26.7 % 12/22/19 17 Unknown COMPLETE BLOOD COUNT 5592385 MCV 72.2 fL 7 Unknown COMPLETE BLOOD COUNT 3531157 MCH 21.6 pg 7 Unknown COMPLETE BLOOD COUNT 8246797 MCHC 30.0 g/dL 7 Unknown COMPLETE BLOOD COUNT 5730479 PLATELET COUNT 290 10e9/L Unknown COMPLETE BLOOD COUNT 7323301 Mean Plt Volume 9.3 fL Unknown COMPLETE BLOOD COUNT 0584268 Neut Auto 80.2 % 7 Unknown COMPLETE BLOOD COUNT 2927120 Lymph Auto 9.8 % 12/22/19 17 Unknown COMPLETE BLOOD COUNT 2775356 [place] Auto 8.1 % 7 Unknown COMPLETE BLOOD COUNT 6618836 RDW 17.4 % 7 Unknown COMPLETE BLOOD COUNT 9613086 Eos Auto 1.5 % 7 Unknown COMPLETE BLOOD COUNT 6016394 Baso Auto 0.4 % 7 Unknown COMPLETE BLOOD COUNT 5943975 Neutrophil Abs 5.45 10e9/L Unknown COMPLETE BLOOD COUNT 2243192 Lymphocyte Abs 0.67 10e9/L Unknown COMPLETE BLOOD COUNT 5606036 Monocyte Abs 0.55 10e9/L 11/24 Unknown COMPLETE BLOOD COUNT 3602343 Eosinophil Abs 0.10 10e9/L Unknown COMPLETE BLOOD COUNT 8152067 RDW-SD 44.1 fL 7 Unknown COMPLETE BLOOD COUNT 0119542 Basophil Abs 0.03 10e9/L 11/24 Unknown COMPLETE BLOOD COUNT 8145077 WBC 7.6 10e9/L 12/13/19 17 Unknown COMPLETE BLOOD COUNT 2913038 RBC 3.71 10e12/L 2016 Unknown COMPLETE BLOOD COUNT 2211496 HEMOGLOBIN 8.0 g/dL 12/13/19 17 Unknown COMPLETE BLOOD COUNT 0200750 HEMATOCRIT 27.3 % 12/13/19 17 Unknown COMPLETE BLOOD COUNT 9913307 MCV 73.6 fL 7 Unknown COMPLETE BLOOD COUNT 1196359 MCH 21.6 pg 7 Unknown COMPLETE BLOOD COUNT 6108164 MCHC 29.3 g/dL 7 Unknown COMPLETE BLOOD COUNT 0076719 PLATELET COUNT 330 10e9/L Unknown COMPLETE BLOOD COUNT 3412282 Mean Plt Volume 9.7 fL Unknown COMPLETE BLOOD COUNT 5324144 Neut Auto 73.2 % 7 Unknown COMPLETE BLOOD COUNT 1572453 Lymph Auto 14.5 % 12/13/19 17 Unknown COMPLETE BLOOD COUNT 7641875 [place] Auto 10.5 % 7 Unknown COMPLETE BLOOD COUNT 9141414 RDW 17.3 % 7 Unknown COMPLETE BLOOD COUNT 6157723 Eos Auto 1.3 % 7 Unknown COMPLETE BLOOD COUNT 2398126 Baso Auto 0.5 % 7 Unknown COMPLETE BLOOD COUNT 8405090 Neutrophil Abs 5.56 10e9/L Unknown COMPLETE BLOOD COUNT 5804867 Lymphocyte Abs 1.10 10e9/L Unknown COMPLETE BLOOD COUNT 3771687 Monocyte Abs 0.80 10e9/L 11/23 Unknown COMPLETE BLOOD COUNT 9908605 Eosinophil Abs 0.10 10e9/L Unknown COMPLETE BLOOD COUNT 5956917 RDW-SD 45.2 fL 7 Unknown COMPLETE BLOOD COUNT 1097900 Basophil Abs 0.04 10e9/L 11/23 Unknown IRON 29692 Iron 69 ug/dL 03/09/2016 Unknown VITAMIN B 12 23453 VITAMIN B12 311 pg/mL 03/09/2016 Unkn own MEAN GLUC 4853779 Mean Glucose 260 mg/dL 03/07/2016 Unknow n GLYCOSYLATED HEMOGLOBIN TEST 40865 Hgb A1c 30160-5 10.7 % 0 03/07/2016 Unknown COMPREHENSIVE METABOLIC 58762 AST 14 U/L 2015 Unknown COMPREHENSIVE METABOLIC 29787 ALT 21 U/L 2015 Unknown COMPREHENSIVE METABOLIC 76599 BUN 27 mg/dL 2015 Unknown COMPREHENSIVE METABOLIC 34556 ALBUMIN 4.5 g/dL 2015 Unknown COMPREHENSIVE METABOLIC 34360 CHLORIDE 101 mmol/L 03/06 Unknown COMPREHENSIVE METABOLIC 99877 Bili Total 0.4 mg/dL 03/06 Unknown COMPREHENSIVE METABOLIC 91519 ALK PHOS 49 U/L 2015 Unknown COMPREHENSIVE METABOLIC 91896 SODIUM 136 mmol/L 03/06 Unknown COMPREHENSIVE METABOLIC 48036 CREATININE 1.16 mg/dL 02/22 Unknown COMPREHENSIVE METABOLIC 51833 CALCIUM 9.9 mg/dL 2015 Unknown COMPREHENSIVE METABOLIC 63151 POTASSIUM 4.5 mmol/L 03/06 Unknown COMPREHENSIVE METABOLIC 81446 Total Protein 6.7 g/dL Unknown COMPREHENSIVE METABOLIC 38374 Glucose 245 mg/dL 2015 Unknown COMPREHENSIVE METABOLIC 77114 Bicarbonate 24 mmol/L 02/22 Unknown COMPREHENSIVE METABOLIC 29396 AGAP 11 mmol/L 2015 Unknown THYROID STIMULATING HORMONE 59936 TSH 0.775 uIU/mL 03/06/2016 Unknown TESTOSTERONE TOTAL 56055 Testos Total 96 ng/dL 03/06/20 16 Unknown LIPID GROUP 04734 Cholesterol 146 mg/dL 03/06/2016 Unkno wn LIPID GROUP 74756 Triglyceride 249 mg/dL 03/06/2016 [facility] own LIPID GROUP 92207 HDL CHOLESTEROL 46 mg/dL 03/06/2016 [facility] LIPID GROUP 25852 Chol/HDL Ratio 3.17 ratio 03/06/2016 U [facility] LIPID GROUP 00147 NON-HDL Chol 100 mg/dL 03/06/2016 [facility] own LIPID GROUP 57761 LDL Cholesterol 50 mg/dL 03/06/2016 U [facility] COMPLETE BLOOD COUNT 5604062 WBC 11.2 10e9/L 016 Unknown COMPLETE BLOOD COUNT 6922578 RBC 3.94 10e12/L 2015 Unknown COMPLETE BLOOD COUNT 9703288 HEMOGLOBIN 11.4 g/dL 03/06/20 16 Unknown COMPLETE BLOOD COUNT 1090502 HEMATOCRIT 33.7 % 03/06/20 16 Unknown COMPLETE BLOOD COUNT 2565641 MCV 85.5 fL 6 Unknown COMPLETE BLOOD COUNT 9870394 MCH 28.9 pg 6 Unknown COMPLETE BLOOD COUNT 5654557 MCHC 33.8 g/dL 6 Unknown COMPLETE BLOOD COUNT 5871435 PLATELET COUNT 204 10e9/L Unknown COMPLETE BLOOD COUNT 1033869 Mean Plt Volume 10.1 fL Unknown COMPLETE BLOOD COUNT 3545298 Neut Auto 85.9 % 6 Unknown COMPLETE BLOOD COUNT 6987115 Lymph Auto 6.8 % 03/06/20 16 Unknown COMPLETE BLOOD COUNT 8665272 [place] Auto 7.0 % 6 Unknown COMPLETE BLOOD COUNT 3063811 RDW 13.7 % 6 Unknown COMPLETE BLOOD COUNT 8180033 Eos Auto 0.1 % 6 Unknown COMPLETE BLOOD COUNT 6738176 Baso Auto 0.2 % 6 Unknown COMPLETE BLOOD COUNT 1849235 Neutrophil Abs 9.62 10e9/L Unknown COMPLETE BLOOD COUNT 1042318 Lymphoctye Abs 0.76 10e9/L Unknown COMPLETE BLOOD COUNT 7770289 Monocyte Abs 0.78 10e9/L 02/22 Unknown COMPLETE BLOOD COUNT 7380835 Eosinophil Abs 0.01 10e9/L Unknown COMPLETE BLOOD COUNT 8856843 RDW-SD 41.9 fL 6 Unknown COMPLETE BLOOD COUNT 0798131 Basophil Abs 0.02 10e9/L 02/22 Unknown FREE T4 39729 T4 Free 0.89 ng/dL 03/06/2016 Unknown GFR CALC 3734355 GFR Non Afr Amr >60 mL/min 03/06/2016 Un known GFR CALC 5418231 GFR Afr Amr >60 mL/min 03/06/2016 Unknow n PSA EQUIMOLAR JONATAN 26487 PSA Total 0.78 ng/mL 6 Unknown FREE T4 71207 FREE T4 0.90 NG/DL 07/01/2015 Unknown LIPID GROUP 45053 HDL TEST 44 MG/DL 07/01/2015 Unknown LIPID GROUP 82533 TRIG 303 MG/DL 07/01/2015 Unknown LIPID GROUP 56623 TEST LDL 56 MG/DL 07/01/2015 Unknown LIPID GROUP 23278 CHOL 161 MG/DL 07/01/2015 Unknown LIPID GROUP 31199 RCHOL/HDL 3.66 RATIO 07/01/2015 Unknow n LIPID GROUP 62510 NON-HDL CH 117 MG/DL 07/01/2015 Unknow n THYROID STIMULATING HORMONE 41884 TSH 1.783 uIU/ML 07/01/2015 Unknown COMPLETE BLOOD COUNT 7957520 WBC 6.6 10e9/L 07/01/20 15 Unknown COMPLETE BLOOD COUNT 1779476 RBC 4.18 10e12/L 2014 Unknown COMPLETE BLOOD COUNT 6038059 HGB 12.2 g/dL 5 Unknown COMPLETE BLOOD COUNT 5727598 HCT DET 37.0 % 5 Unknown COMPLETE BLOOD COUNT 6230939 MCV 88.5 fL 5 Unknown COMPLETE BLOOD COUNT 1673593 MCH 29.2 pg 5 Unknown COMPLETE BLOOD COUNT 5096750 MCHC 33.0 g/dL 5 Unknown COMPLETE BLOOD COUNT 5064700 PLT 224 10e9/L 07/01/20 15 Unknown COMPLETE BLOOD COUNT 9754102 MPV 10.4 fL 5 Unknown COMPLETE BLOOD COUNT 7349963 SUSIE % 72.6 % 5 Unknown COMPLETE BLOOD COUNT 5209591 LY % 14.1 % 5 Unknown COMPLETE BLOOD COUNT 7727013 MON % 10.2 % 5 Unknown COMPLETE BLOOD COUNT 7688029 EOS % 2.6 % 5 Unknown COMPLETE BLOOD COUNT 9443104 BASO % 0.5 % 5 Unknown COMPLETE BLOOD COUNT 4813318 RDW 14.1 % 5 Unknown COMPLETE BLOOD COUNT 2277491 ABS SUSIE 4.79 10e9/L 015 Unknown COMPLETE BLOOD COUNT 3154776 ABS LYMPH 0.93 10e9/L 015 Unknown COMPLETE BLOOD COUNT 4540442 ABS MONO 0.67 10e9/L 015 Unknown COMPLETE BLOOD COUNT 3987030 ABS EOS 0.17 10e9/L 015 Unknown COMPLETE BLOOD COUNT 1198830 ABS BASO 0.03 10e9/L 015 Unknown COMPLETE BLOOD COUNT 9770437 RDW-SD 43.9 fL 5 Unknown PSA EQUIMOLAR JONATAN 43460 PSA EQ 0.73 NG/ML 5 Unknown COMPREHENSIVE METABOLIC 73231 AST 24 U/L 2014 Unknown COMPREHENSIVE METABOLIC 05503 ALT 26 IU/L 2014 Unknown COMPREHENSIVE METABOLIC 52831 BUN 26 MG/DL 2014 Unknown COMPREHENSIVE METABOLIC 00054 ALBUMIN 4.6 GM/DL 2014 Unknown COMPREHENSIVE METABOLIC 02116 CHLORIDE 102 MMOL/L 06/01 Unknown COMPREHENSIVE METABOLIC 25296 BILI TOT 0.5 MG/DL 2014 Unknown COMPREHENSIVE METABOLIC 17359 ALK PHOS 56 U/L 2014 Unknown COMPREHENSIVE METABOLIC 53184 SODIUM 136 MMOL/L 06/01 Unknown COMPREHENSIVE METABOLIC 68150 CREATININE 1.16 MG/DL 04/2015 Unknown COMPREHENSIVE METABOLIC 60894 CALCIUM 9.8 MG/DL 2014 Unknown COMPREHENSIVE METABOLIC 45599 POTASSIUM 4.6 MMOL/L 06/01 Unknown COMPREHENSIVE METABOLIC 47828 PROT TOT 7.4 GM/DL 2014 Unknown COMPREHENSIVE METABOLIC 62910 Glucose 223 MG/DL 2014 Unknown COMPREHENSIVE METABOLIC 24160 BICARB 27 MMOL/L 2014 Unknown COMPREHENSIVE METABOLIC 95266 ANION GAP 7 MEQ/L 2014 Unknown GFR CALC 7198131 GFR AA >60 ML/MIN 06/01/2015 Unknown GFR CALC 9364838 GFR NON-AA >60 ML/MIN 06/01/2015 Unknown GLYCOSYLATED HEMOGLOBIN TEST 88125 A1C HPLC 61712-6 8.9 % 0 06/01/2015 Unknown GFR CALC 7255542 GFR AA >60 ML/MIN 02/25/2015 Unknown GFR CALC 3226119 GFR NON-AA >60 ML/MIN 02/25/2015 Unknown COMPREHENSIVE METABOLIC 48995 AST 24 U/L 2014 Unknown COMPREHENSIVE METABOLIC 80741 ALT 25 IU/L 2014 Unknown COMPREHENSIVE METABOLIC 95392 BUN 14 MG/DL 2014 Unknown COMPREHENSIVE METABOLIC 48001 ALBUMIN 4.5 GM/DL 2014 Unknown COMPREHENSIVE METABOLIC 05318 CHLORIDE 99 MMOL/L 2014 Unknown COMPREHENSIVE METABOLIC 99551 BILI TOT 0.5 MG/DL 2014 Unknown COMPREHENSIVE METABOLIC 15885 ALK PHOS 48 U/L 2014 Unknown COMPREHENSIVE METABOLIC 68897 SODIUM 136 MMOL/L 02/25 Unknown COMPREHENSIVE METABOLIC 44180 CREATININE 0.97 MG/DL 12/2014 Unknown COMPREHENSIVE METABOLIC 05795 CALCIUM 9.9 MG/DL 2014 Unknown COMPREHENSIVE METABOLIC 17213 POTASSIUM 4.4 MMOL/L 02/25 Unknown COMPREHENSIVE METABOLIC 06338 PROT TOT 7.1 GM/DL 2014 Unknown COMPREHENSIVE METABOLIC 03967 Glucose 171 MG/DL 2014 Unknown COMPREHENSIVE METABOLIC 53881 BICARB 25 MMOL/L 2014 Unknown COMPREHENSIVE METABOLIC 45427 ANION GAP 12 MEQ/L 2014 Unknown PROTEIN/CREAT URINE WITH RATIO 93373|74509 PROT R U 19 MG/D L 08/27/2014 Unknown PROTEIN/CREAT URINE WITH RATIO 61917|80509 CREAT R U 111 MG/ DL 08/27/2014 Unknown PROTEIN/CREAT URINE WITH RATIO 43298|96080 XRATIO P/C 171 MG /G 08/27/2014 Unknown MICROALBUMIN URINE RANDOM 51758 MICRL MG/L 34.7 MG/L 12/2013 Unknown MICROALBUMIN URINE RANDOM 22858 XM.ALB/CRE 32.7 MG/GCR 1 10/28/2013 Unknown MICROALBUMIN URINE RANDOM 32488 CREAT MG/D 106 MG/DL 12/2013 Unknown MICROALBUMIN URINE RANDOM 52386 CRE/100 1.06 G/L 12/2013 Unknown COMPLETE BLOOD COUNT [id number] WBC 7.1 10e9/L 08/05/20 14 Unknown COMPLETE BLOOD COUNT [id number] RBC 4.35 10e12/L 2013 Unknown COMPLETE BLOOD COUNT 2891992 HGB 12.9 g/dL 4 Unknown COMPLETE BLOOD COUNT [id number] HCT DET 39.4 % 4 Unknown COMPLETE BLOOD COUNT 1903310 MCV 90.6 fL 4 Unknown COMPLETE BLOOD COUNT [id number] MCH 29.7 pg 4 Unknown COMPLETE BLOOD COUNT [id number] MCHC 32.7 g/dL 4 Unknown COMPLETE BLOOD COUNT [id number] PLT 240 10e9/L 08/05/20 14 Unknown COMPLETE BLOOD COUNT [id number] MPV 10.3 fL 4 Unknown COMPLETE BLOOD COUNT [id number] SUSIE % 70.0 % 4 Unknown COMPLETE BLOOD COUNT [id number] LY % 16.4 % 4 Unknown COMPLETE BLOOD COUNT [id number] MON % 9.2 % 4 Unknown COMPLETE BLOOD COUNT [id number] EOS % 3.8 % 4 Unknown COMPLETE BLOOD COUNT [id number] BASO % 0.6 % 4 Unknown COMPLETE BLOOD COUNT 1409526 RDW 13.4 % 4 Unknown COMPLETE BLOOD COUNT [id number] ABS SUSIE 4.97 10e9/L 014 Unknown COMPLETE BLOOD COUNT [id number] ABS LYMPH 1.16 10e9/L 014 Unknown COMPLETE BLOOD COUNT [id number] ABS MONO 0.65 10e9/L 014 Unknown COMPLETE BLOOD COUNT [id number] ABS EOS 0.27 10e9/L 014 Unknown COMPLETE BLOOD COUNT [id number] ABS BASO 0.04 10e9/L 014 Unknown COMPLETE BLOOD COUNT [id number] RDW-SD 43.3 fL 4 Unknown FREE T4 57474 FREE T4 1.02 NG/DL 08/05/2014 Unknown GFR CALC 4166129 GFR AA >60 ML/MIN 08/05/2014 Unknown GFR CALC 9343498 GFR NON-AA >60 ML/MIN 08/05/2014 Unknown GLYCOSYLATED HEMOGLOBIN TEST 49003 A1C HPLC 00556-0 7.7 % 1 10/05/2013 Unknown COMPREHENSIVE METABOLIC 49385 AST 19 U/L 2013 Unknown COMPREHENSIVE METABOLIC 15250 ALT 21 IU/L 2013 Unknown COMPREHENSIVE METABOLIC 05428 BUN 25 MG/DL 2013 Unknown COMPREHENSIVE METABOLIC 56331 ALBUMIN 4.6 GM/DL 2013 Unknown COMPREHENSIVE METABOLIC 25727 CHLORIDE 103 MMOL/L 08/05 Unknown COMPREHENSIVE METABOLIC 63591 BILI TOT 0.4 MG/DL 2013 Unknown COMPREHENSIVE METABOLIC 98869 ALK PHOS 45 U/L 2013 Unknown COMPREHENSIVE METABOLIC 53015 SODIUM 138 MMOL/L 08/05 Unknown COMPREHENSIVE METABOLIC 99802 CREATININE 1.01 MG/DL 07/25 Unknown COMPREHENSIVE METABOLIC 22173 CALCIUM 9.8 MG/DL 2013 Unknown COMPREHENSIVE METABOLIC 99687 POTASSIUM 4.7 MMOL/L 08/05 Unknown COMPREHENSIVE METABOLIC 48925 PROT TOT 7.0 GM/DL 2013 Unknown COMPREHENSIVE METABOLIC 34278 Glucose 145 MG/DL 2013 Unknown COMPREHENSIVE METABOLIC 37385 BICARB 27 MMOL/L 2013 Unknown COMPREHENSIVE METABOLIC 18223 ANION GAP 8 MEQ/L 2013 Unknown THYROID STIMULATING HORMONE 18467 TSH 1.922 uIU/ML 08/05/2014 Unknown LIPID GROUP 24107 HDL TEST 47 MG/DL 08/05/2014 Unknown LIPID GROUP 80105 TRIG 224 MG/DL 08/05/2014 Unknown LIPID GROUP 56419 TEST LDL 125 MG/DL 08/05/2014 Unknown LIPID GROUP 77766 CHOL 217 MG/DL 08/05/2014 Unknown LIPID GROUP 92169 RCHOL/HDL 4.62 RATIO 08/05/2014 Unknow n LIPID GROUP 48380 NON-HDL CH 170 MG/DL 08/05/2014 Unknow n MYCOPLASMA ANTIBODY, IFA [id number] MYCO G IFA 1:256 03/24 Unknown MYCOPLASMA ANTIBODY, IFA [id number] MYCO M IFA <1:10 03/24 Unknown MYCOPLASMA ANTIBODY, IFA [id number] MYCO INTER SEE BELO 03/24 Unknown COMPLETE BLOOD COUNT [id number] WBC 8.3 10e9/L 04/09/20 13 Unknown COMPLETE BLOOD COUNT [id number] RBC 4.61 10e12/L 2012 Unknown COMPLETE BLOOD COUNT 8285459 HGB 13.9 g/dL 3 Unknown COMPLETE BLOOD COUNT [id number] HCT DET 41.2 % 3 Unknown COMPLETE BLOOD COUNT 7972038 MCV 89.4 fL 3 Unknown COMPLETE BLOOD COUNT 1652925 MCH 30.2 pg 3 Unknown COMPLETE BLOOD COUNT 1019291 MCHC 33.7 g/dL 3 Unknown COMPLETE BLOOD COUNT [id number] PLT 249 10e9/L 04/09/20 13 Unknown COMPLETE BLOOD COUNT [id number] MPV 9.8 fL 3 Unknown COMPLETE BLOOD COUNT [id number] SUSIE % 65.9 % 3 Unknown COMPLETE BLOOD COUNT [id number] LY % 19.8 % 3 Unknown COMPLETE BLOOD COUNT [id number] MON % 10.8 % 3 Unknown COMPLETE BLOOD COUNT 8494404 EOS % 3.0 % 3 Unknown COMPLETE BLOOD COUNT [id number] BASO % 0.5 % 3 Unknown COMPLETE BLOOD COUNT [id number] RDW 14.0 % 3 Unknown COMPLETE BLOOD COUNT 3632168 ABS SUSIE 5.47 10e9/L 013 Unknown COMPLETE BLOOD COUNT [id number] ABS LYMPH 1.64 10e9/L 013 Unknown COMPLETE BLOOD COUNT [id number] ABS MONO 0.90 10e9/L 013 Unknown COMPLETE BLOOD COUNT [id number] ABS EOS 0.25 10e9/L 013 Unknown COMPLETE BLOOD COUNT [id number] ABS BASO 0.04 10e9/L 013 Unknown COMPLETE BLOOD COUNT [id number] RDW-SD 45.0 fL 3 Unknown URIC ACID 79435 URIC ACID 5.3 MG/DL 02/12/2013 Unknown FREE T4 15443 FREE T4 1.09 NG/DL 02/11/2013 Unknown COMPLETE BLOOD COUNT [id number] WBC 6.3 10e9/L 02/12/20 13 Unknown COMPLETE BLOOD COUNT [id number] RBC 4.29 10e12/L 2012 Unknown COMPLETE BLOOD COUNT 3785012 HGB 13.1 g/dL 3 Unknown COMPLETE BLOOD COUNT [id number] HCT DET 39.7 % 3 Unknown COMPLETE BLOOD COUNT 7886776 MCV 92.5 fL 3 Unknown COMPLETE BLOOD COUNT 9641351 MCH 30.5 pg 3 Unknown COMPLETE BLOOD COUNT 7410354 MCHC 33.0 g/dL 3 Unknown COMPLETE BLOOD COUNT [id number] PLT 247 10e9/L 02/12/20 13 Unknown COMPLETE BLOOD COUNT [id number] MPV 10.0 fL 3 Unknown COMPLETE BLOOD COUNT [id number] SUSIE % 73.4 % 3 Unknown COMPLETE BLOOD COUNT 9387995 LY % 13.5 % 3 Unknown COMPLETE BLOOD COUNT 4961990 MON % 9.4 % 3 Unknown COMPLETE BLOOD COUNT [id number] EOS % 2.9 % 3 Unknown COMPLETE BLOOD COUNT [id number] BASO % 0.8 % 3 Unknown COMPLETE BLOOD COUNT 9698479 RDW 13.8 % 3 Unknown COMPLETE BLOOD COUNT [id number] ABS SUSIE 4.62 10e9/L 013 Unknown COMPLETE BLOOD COUNT [id number] ABS LYMPH 0.85 10e9/L 013 Unknown COMPLETE BLOOD COUNT [id number] ABS MONO 0.59 10e9/L 013 Unknown COMPLETE BLOOD COUNT [id number] ABS EOS 0.18 10e9/L 013 Unknown COMPLETE BLOOD COUNT [id number] ABS BASO 0.05 10e9/L 013 Unknown COMPLETE BLOOD COUNT [id number] RDW-SD 45.7 fL 3 Unknown HEMOGLOBIN A1C (GLYCOSYLATED) 1612031 A1C HPLC 31263-1 7.5 % 02/11/2013 Unknown THYROID STIMULATING HORMONE 52027 TSH 1.466 uIU/ML 02/11/2013 Unknown VITAMIN B 12 FOLIC ACID 31900|63746 VIT B 12 625 PG/ML 01/23 Unknown VITAMIN B 12 FOLIC ACID 93520|57798 FOLIC ACID 15.6 NG/ML Unknown COMPREHENSIVE METABOLIC 39849 AST 18 U/L 2012 Unknown COMPREHENSIVE METABOLIC 37181 ALT 21 IU/L 2012 Unknown COMPREHENSIVE METABOLIC 32714 BUN 25 MG/DL 2012 Unknown COMPREHENSIVE METABOLIC 77033 ALBUMIN 4.6 GM/DL 2012 Unknown COMPREHENSIVE METABOLIC 21046 CHLORIDE 103 MMOL/L 02/11 Unknown COMPREHENSIVE METABOLIC 94019 BILI TOT 0.3 MG/DL 2012 Unknown COMPREHENSIVE METABOLIC 32907 ALK PHOS 53 U/L 2012 Unknown COMPREHENSIVE METABOLIC 07931 SODIUM 136 MMOL/L 02/11 Unknown COMPREHENSIVE METABOLIC 30078 CREATININE 1.16 MG/DL 01/23 Unknown COMPREHENSIVE METABOLIC 01420 CALCIUM 10.0 MG/DL 02/11 Unknown COMPREHENSIVE METABOLIC 85834 POTASSIUM 4.9 MMOL/L 02/11 Unknown COMPREHENSIVE METABOLIC 39305 PROT TOT 7.0 GM/DL 2012 Unknown COMPREHENSIVE METABOLIC 03154 Glucose 192 MG/DL 2012 Unknown COMPREHENSIVE METABOLIC 08725 BICARB 26 MMOL/L 2012 Unknown COMPREHENSIVE METABOLIC 86188 ANION GAP 7 MEQ/L 2012 Unknown GFR CALC 9774824 GFR AA >60 ML/MIN 02/11/2013 Unknown GFR CALC 8552888 GFR NON-AA >60 ML/MIN 02/11/2013 Unknown C-REACTIVE PROTEIN (CRP) QUANT 92347 CRP 2.7 MG/DL 02/11/2013 Unknown GFR CALC 0159449 GFR AA >60 ML/MIN 09/19/2012 Unknown GFR CALC 9344038 GFR NON-AA >60 ML/MIN 09/19/2012 Unknown HEMOGLOBIN A1C (GLYCOSYLATED) 9888102 A1C HPLC 77705-2 7.2 % 09/19/2012 Unknown COMPREHENSIVE METABOLIC 05533 AST 13 U/L 2011 Unknown COMPREHENSIVE METABOLIC 43320 ALT 17 IU/L 2011 Unknown COMPREHENSIVE METABOLIC 19573 BUN 25 MG/DL 2011 Unknown COMPREHENSIVE METABOLIC 39415 ALBUMIN 4.5 GM/DL 2011 Unknown COMPREHENSIVE METABOLIC 85607 CHLORIDE 104 MMOL/L 09/19 Unknown COMPREHENSIVE METABOLIC 75501 BILI TOT 0.3 MG/DL 2011 Unknown COMPREHENSIVE METABOLIC 23726 ALK PHOS 43 U/L 2011 Unknown COMPREHENSIVE METABOLIC 77839 SODIUM 139 MMOL/L 09/19 Unknown COMPREHENSIVE METABOLIC 05501 CREATININE 1.10 MG/DL 08/25 Unknown COMPREHENSIVE METABOLIC 88028 CALCIUM 9.8 MG/DL 2011 Unknown COMPREHENSIVE METABOLIC 05877 POTASSIUM 4.8 MMOL/L 09/19 Unknown COMPREHENSIVE METABOLIC 66673 PROT TOT 6.5 GM/DL 2011 Unknown COMPREHENSIVE METABOLIC 54921 Glucose 148 MG/DL 2011 Unknown COMPREHENSIVE METABOLIC 08945 BICARB 25 MMOL/L 2011 Unknown COMPREHENSIVE METABOLIC 53538 ANION GAP 10 MEQ/L 2011 Unknown LIPID GROUP 02459 HDL TEST 44 MG/DL 09/19/2012 Unknown LIPID GROUP 49944 TRIG 318 MG/DL 09/19/2012 Unknown LIPID GROUP 57794 TEST LDL 100 MG/DL 09/19/2012 Unknown LIPID GROUP 28339 CHOL 208 MG/DL 09/19/2012 Unknown LIPID GROUP 05486 RCHOL/HDL 4.73 RATIO 09/19/2012 Unknow n FREE T4 45373 FREE T4 0.87 NG/DL 05/06/2012 Unknown GLYCOSYLATED HEMOGLOBIN TEST 73789 A1C HPLC 06431-1 6.4 % 0 05/06/2012 Unknown LIPID GROUP 91405 HDL TEST 44 MG/DL 05/06/2012 Unknown LIPID GROUP 53959 TRIG 177 MG/DL 05/06/2012 Unknown LIPID GROUP 29886 TEST LDL 113 MG/DL 05/06/2012 Unknown LIPID GROUP 83057 CHOL 192 MG/DL 05/06/2012 Unknown LIPID GROUP 61715 RCHOL/HDL 4.36 RATIO 05/06/2012 Unknow n THYROID STIMULATING HORMONE 57542 TSH 1.151 uIU/ML 05/06/2012 Unknown COMPLETE BLOOD COUNT 10919 WBC 7.8 10e9/L 05/06/20 12 Unknown COMPLETE BLOOD COUNT 15954 RBC 4.31 10e12/L 2011 Unknown COMPLETE BLOOD COUNT 61457 HGB 12.8 g/dL 2 Unknown COMPLETE BLOOD COUNT 77771 HCT DET 39.1 % 2 Unknown COMPLETE BLOOD COUNT 10788 MCV 90.7 fL 2 Unknown COMPLETE BLOOD COUNT 41040 MCH 29.7 pg 2 Unknown COMPLETE BLOOD COUNT 67076 MCHC 32.7 g/dL 2 Unknown COMPLETE BLOOD COUNT 15111 PLT 207 10e9/L 05/06/20 12 Unknown COMPLETE BLOOD COUNT 88223 MPV 10.2 fL 2 Unknown COMPLETE BLOOD COUNT 24057 SUSIE % 74.2 % 2 Unknown COMPLETE BLOOD COUNT 20895 LY % 12.8 % 2 Unknown COMPLETE BLOOD COUNT 00694 MON % 11.0 % 2 Unknown COMPLETE BLOOD COUNT 63530 EOS % 1.7 % 2 Unknown COMPLETE BLOOD COUNT 63069 BASO % 0.3 % 2 Unknown COMPLETE BLOOD COUNT 57124 RDW 13.7 % 2 Unknown COMPLETE BLOOD COUNT 66572 ABS SUSIE 5.79 10e9/L 012 Unknown COMPLETE BLOOD COUNT 66649 ABS LYMPH 1.00 10e9/L 012 Unknown COMPLETE BLOOD COUNT 94922 ABS MONO 0.86 10e9/L 012 Unknown COMPLETE BLOOD COUNT 86297 ABS EOS 0.13 10e9/L 012 Unknown COMPLETE BLOOD COUNT 63584 ABS BASO 0.02 10e9/L 012 Unknown COMPLETE BLOOD COUNT 37610 RDW-SD 44.4 fL 2 Unknown COMPREHENSIVE METABOLIC 82048 AST 13 U/L 2011 Unknown COMPREHENSIVE METABOLIC 06474 ALT 14 IU/L 2011 Unknown COMPREHENSIVE METABOLIC 45021 BUN 17 MG/DL 2011 Unknown COMPREHENSIVE METABOLIC 05190 ALBUMIN 4.5 GM/DL 2011 Unknown COMPREHENSIVE METABOLIC 91737 CHLORIDE 101 MMOL/L 05/06 Unknown COMPREHENSIVE METABOLIC 12384 BILI TOT 0.5 MG/DL 2011 Unknown COMPREHENSIVE METABOLIC 38169 ALK PHOS 42 U/L 2011 Unknown COMPREHENSIVE METABOLIC 12531 SODIUM 141 MMOL/L 05/06 Unknown COMPREHENSIVE METABOLIC 44855 CREATININE 1.02 MG/DL 04/24 Unknown COMPREHENSIVE METABOLIC 94437 CALCIUM 9.7 MG/DL 2011 Unknown COMPREHENSIVE METABOLIC 72842 POTASSIUM 4.6 MMOL/L 05/06 Unknown COMPREHENSIVE METABOLIC 46567 PROT TOT 6.5 GM/DL 2011 Unknown COMPREHENSIVE METABOLIC 78878 Glucose 139 MG/DL 2011 Unknown COMPREHENSIVE METABOLIC 94417 BICARB 29 MMOL/L 2011 Unknown COMPREHENSIVE METABOLIC 40085 ANION GAP 11 MEQ/L 2011 Unknown GFR CALC 3499813 GFR AA >60 ML/MIN 05/06/2012 Unknown GFR CALC 3423435 GFR NON-AA 54.0L ML/MIN 05/06/2012 Unkno wn GLYCOSYLATED HEMOGLOBIN TEST 79701 A1C HPLC 22629-3 6.6 % 1 09/30/2010 Unknown FREE T4 46397 FREE T4 1.00 NG/DL 07/26/2011 Unknown LIPID GROUP 38586 HDL TEST 40 MG/DL 07/26/2011 Unknown LIPID GROUP 29799 TRIG 136 MG/DL 07/26/2011 Unknown LIPID GROUP 74449 TEST LDL 126 MG/DL 07/26/2011 Unknown LIPID GROUP 70016 CHOL 193 MG/DL 07/26/2011 Unknown LIPID GROUP 00845 RCHOL/HDL 4.83 RATIO 07/26/2011 Unknow n COMPREHENSIVE METABOLIC 55421 AST 15 U/L 2010 Unknown COMPREHENSIVE METABOLIC 21271 ALT 13 IU/L 2010 Unknown COMPREHENSIVE METABOLIC 84056 BUN 17 MG/DL 2010 Unknown COMPREHENSIVE METABOLIC 11714 ALBUMIN 4.4 GM/DL 2010 Unknown COMPREHENSIVE METABOLIC 68649 CHLORIDE 102 MMOL/L 07/26 Unknown COMPREHENSIVE METABOLIC 76633 BILI TOT 0.5 MG/DL 2010 Unknown COMPREHENSIVE METABOLIC 51642 ALK PHOS 54 U/L 2010 Unknown COMPREHENSIVE METABOLIC 63853 SODIUM 138 MMOL/L 07/26 Unknown COMPREHENSIVE METABOLIC 28202 CREATININE 0.95 MG/DL 10/2010 Unknown COMPREHENSIVE METABOLIC 19222 CALCIUM 9.3 MG/DL 2010 Unknown COMPREHENSIVE METABOLIC 17322 POTASSIUM 4.3 MMOL/L 07/26 Unknown COMPREHENSIVE METABOLIC 07055 PROT TOT 6.7 GM/DL 2010 Unknown COMPREHENSIVE METABOLIC 57343 Glucose 116 MG/DL 2010 Unknown COMPREHENSIVE METABOLIC 37446 BICARB 28 MMOL/L 2010 Unknown COMPREHENSIVE METABOLIC 49307 ANION GAP 8 MEQ/L 2010 Unknown PSA EQUIMOLAR JONATAN 93625 PSA EQ 1.01 NG/ML 1 Unknown COMPLETE BLOOD COUNT 30599 WBC 6.4 10e9/L 07/26/20 11 Unknown COMPLETE BLOOD COUNT 87290 RBC 4.43 10e12/L 2010 Unknown COMPLETE BLOOD COUNT 93950 HGB 13.2 g/dL 1 Unknown COMPLETE BLOOD COUNT 43279 HCT DET 39.3 % 1 Unknown COMPLETE BLOOD COUNT 54338 MCV 88.7 fL 1 Unknown COMPLETE BLOOD COUNT 96593 MCH 29.8 pg 1 Unknown COMPLETE BLOOD COUNT 77017 MCHC 33.6 g/dL 1 Unknown COMPLETE BLOOD COUNT 98451 PLT 226 10e9/L 07/26/20 11 Unknown COMPLETE BLOOD COUNT 31114 MPV 9.9 fL 1 Unknown COMPLETE BLOOD COUNT 70349 SUSIE % 65.4 % 1 Unknown COMPLETE BLOOD COUNT 63759 LY % 19.7 % 1 Unknown COMPLETE BLOOD COUNT 29013 MON % 10.8 % 1 Unknown COMPLETE BLOOD COUNT 23143 EOS % 3.6 % 1 Unknown COMPLETE BLOOD COUNT 65497 BASO % 0.5 % 1 Unknown COMPLETE BLOOD COUNT 17574 RDW 13.2 % 1 Unknown COMPLETE BLOOD COUNT 58545 ABS SUSIE 4.19 10e9/L 011 Unknown COMPLETE BLOOD COUNT 56488 ABS LYMPH 1.26 10e9/L 011 Unknown COMPLETE BLOOD COUNT 45536 ABS MONO 0.69 10e9/L 011 Unknown COMPLETE BLOOD COUNT 07566 ABS EOS 0.23 10e9/L 011 Unknown COMPLETE BLOOD COUNT 56971 ABS BASO 0.03 10e9/L 011 Unknown COMPLETE BLOOD COUNT 45029 RDW-SD 41.7 fL 1 Unknown THYROID STIMULATING HORMONE 36529 TSH 1.345 uIU/ML 07/26/2011 Unknown GFR CALC 3415207 GFR AA >60 ML/MIN 07/26/2011 Unknown GFR CALC 1413432 GFR NON-AA >60 ML/MIN 07/26/2011 Unknown BRAIN NATRIURETIC PEPTIDE(BNP) 21773 BRAIN PEP 23 pg/mL 01/19/2011 Unknown CANCEL 5958715 CANCEL FOOTNOTE 01/18/2011 Unknown TESTOSTERONE TOTAL 46221 TESTOS TO 138 NG/DL 12/19/2010 Unknown COMPLETE BLOOD COUNT 51554 WBC 8.4 10e9/L 12/08/19 11 Unknown COMPLETE BLOOD COUNT 49434 RBC 4.40 10e12/L 2010 Unknown COMPLETE BLOOD COUNT 49251 HGB 13.3 g/dL 1 Unknown COMPLETE BLOOD COUNT 76324 HCT DET 39.8 % 1 Unknown COMPLETE BLOOD COUNT 87773 MCV 90.5 fL 1 Unknown COMPLETE BLOOD COUNT 85222 MCH 30.2 pg 1 Unknown COMPLETE BLOOD COUNT 37452 MCHC 33.4 g/dL 1 Unknown COMPLETE BLOOD COUNT 52416 PLT 201 10e9/L 12/08/19 11 Unknown COMPLETE BLOOD COUNT 03096 MPV 10.6 fL 1 Unknown COMPLETE BLOOD COUNT 67085 SUSIE % 72.5 % 1 Unknown COMPLETE BLOOD COUNT 70970 LY % 14.8 % 1 Unknown COMPLETE BLOOD COUNT 21294 MON % 10.6 % 1 Unknown COMPLETE BLOOD COUNT 79660 EOS % 1.7 % 1 Unknown COMPLETE BLOOD COUNT 31045 BASO % 0.4 % 1 Unknown COMPLETE BLOOD COUNT 66467 RDW 13.7 % 1 Unknown COMPLETE BLOOD COUNT 18938 ABS SUSIE 6.09 10e9/L 011 Unknown COMPLETE BLOOD COUNT 11982 ABS LYMPH 1.24 10e9/L 011 Unknown COMPLETE BLOOD COUNT 49347 ABS MONO 0.89 10e9/L 011 Unknown COMPLETE BLOOD COUNT 01494 ABS EOS 0.14 10e9/L 011 Unknown COMPLETE BLOOD COUNT 86318 ABS BASO 0.03 10e9/L 011 Unknown COMPLETE BLOOD COUNT 42477 RDW-SD 44.0 fL 1 Unknown LIPID GROUP 29627 HDL TEST 40 MG/DL 12/07/2010 Unknown LIPID GROUP 66955 TRIG 383 MG/DL 12/07/2010 Unknown LIPID GROUP 38586 TEST LDL 82 MG/DL 12/07/2010 Unknown LIPID GROUP 96563 CHOL 199 MG/DL 12/07/2010 Unknown LIPID GROUP 46570 RCHOL/HDL 4.98 RATIO 12/07/2010 Unknow n GFR CALC 5282104 GFR AA >60 ML/MIN 12/07/2010 Unknown GFR CALC 7813625 GFR NON-AA >60 ML/MIN 12/07/2010 Unknown COMPREHENSIVE METABOLIC 00538 AST 29 U/L 2010 Unknown COMPREHENSIVE METABOLIC 40394 ALT 39 IU/L 2010 Unknown COMPREHENSIVE METABOLIC 43329 BUN 17 MG/DL 2010 Unknown COMPREHENSIVE METABOLIC 36332 ALBUMIN 4.9 GM/DL 2010 Unknown COMPREHENSIVE METABOLIC 28163 CHLORIDE 100 MMOL/L 12/07 Unknown COMPREHENSIVE METABOLIC 93143 BILI TOT 0.3 MG/DL 2010 Unknown COMPREHENSIVE METABOLIC 50146 ALK PHOS 53 U/L 2010 Unknown COMPREHENSIVE METABOLIC 85393 SODIUM 137 MMOL/L 12/07 Unknown COMPREHENSIVE METABOLIC 63570 CREATININE 0.98 MG/DL 11/22 Unknown COMPREHENSIVE METABOLIC 32524 CALCIUM 9.5 MG/DL 2010 Unknown COMPREHENSIVE METABOLIC 72291 POTASSIUM 4.3 MMOL/L 12/07 Unknown COMPREHENSIVE METABOLIC 92345 PROT TOT 6.6 GM/DL 2010 Unknown COMPREHENSIVE METABOLIC 69920 Glucose 176 MG/DL 2010 Unknown COMPREHENSIVE METABOLIC 91778 BICARB 28 MMOL/L 2010 Unknown COMPREHENSIVE METABOLIC 38568 ANION GAP 9 MEQ/L 2010 Unknown PSA EQUIMOLAR JONATAN 41028 PSA EQ 0.65 NG/ML 1 Unknown HEMOGLOBIN A1C (GLYCOSYLATED) 49388 A1C HPLC 63635-4 6.9 % 12/07/2010 Unknown Procedures Procedure Codes Date THER/PROPH/DIAG INJ SC/IM CPT-4: 48550 12/25/2019 METHYLPREDNISOLONE INJECTION CPT-4: J2930 12/25/2019 FLU VACC PRSV FREE INC ANTIG 65 AND OLDER CPT-4: 98985 08/07/2019 FLU VACC PRSV FREE INC ANTIG 65 AND OLDER CPT-4: 65442 08/07/2019 ADMIN INFLUENZA VIRUS VAC CPT-4: G0008 08/07/2019 THER/PROPH/DIAG INJ SC/IM CPT-4: 08550 07/14/2019 METHYLPREDNISOLONE INJECTION CPT-4: J2930 07/14/2019 ROUTINE VENIPUNCTURE CPT-4: 06358 06/17/2019 ASSAY THYROID STIM HORMONE CPT-4: 85833 06/17/2019 COMPREHEN METABOLIC PANEL CPT-4: 92220 06/17/2019 COMPLETE CBC W/AUTO DIFF WBC CPT-4: 20823 06/17/2019 ASSAY OF IRON CPT-4: 44644 06/17/2019 VITAMIN B-12 CPT-4: 01320 06/17/2019 RBC SED RATE AUTOMATED CPT-4: 84824 06/17/2019 THER/PROPH/DIAG INJ SC/IM CPT-4: 34447 06/10/2019 THER/PROPH/DIAG INJ SC/IM CPT-4: 13869 06/02/2019 THER/PROPH/DIAG INJ SC/IM CPT-4: 25289 05/27/2019 THER/PROPH/DIAG INJ SC/IM CPT-4: 86499 05/12/2019 ROUTINE VENIPUNCTURE CPT-4: 87724 05/08/2019 COMPREHEN METABOLIC PANEL CPT-4: 30550 05/08/2019 COMPLETE CBC W/AUTO DIFF WBC CPT-4: 15991 05/08/2019 A1C HPLC CPT-4: 37021 05/08/2019 VITAMIN D TOTAL (25 HYDROXY) CPT-4: 60435 05/08/2019 ASSAY OF IRON CPT-4: 82842 05/08/2019 ASSAY OF FERRITIN CPT-4: 32125 05/08/2019 VITAMIN B-12 CPT-4: 32621 05/08/2019 THER/PROPH/DIAG INJ SC/IM CPT-4: 81079 03/21/2019 METHYLPREDNISOLONE INJECTION CPT-4: J2930 03/21/2019 THER/PROPH/DIAG INJ SC/IM CPT-4: 00310 03/13/2019 METHYLPREDNISOLONE INJECTION CPT-4: J2930 03/13/2019 THER/PROPH/DIAG INJ SC/IM CPT-4: 35779 12/25/2018 METHYLPREDNISOLONE INJECTION CPT-4: J2930 12/25/2018 ROUTINE VENIPUNCTURE CPT-4: 29577 12/09/2018 ASSAY OF FREE THYROXINE CPT-4: 00711 12/09/2018 ASSAY THYROID STIM HORMONE CPT-4: 59193 12/09/2018 COMPREHEN METABOLIC PANEL CPT-4: 32281 12/09/2018 COMPLETE CBC W/AUTO DIFF WBC CPT-4: 72717 12/09/2018 LIPID PANEL CPT-4: 12342 12/09/2018 A1C HPLC CPT-4: 94029 12/09/2018 PRESCRIP TRANSMIT VIA ERX SY CPT-4: G8553 08/21/2018 PRESCRIP TRANSMIT VIA ERX SY CPT-4: G8553 08/07/2018 THER/PROPH/DIAG INJ SC/IM CPT-4: 81334 05/23/2018 METHYLPREDNISOLONE INJECTION CPT-4: J2930 05/23/2018 PRESCRIP TRANSMIT VIA ERX SY CPT-4: G8553 05/02/2018 THER/PROPH/DIAG INJ SC/IM CPT-4: 06234 04/29/2018 METHYLPREDNISOLONE INJECTION CPT-4: J2930 04/29/2018 DEXAMETHASONE SODIUM PHOS CPT-4: J1100 04/22/2018 THER/PROPH/DIAG INJ SC/IM CPT-4: 76900 04/22/2018 TRIAMCINOLONE ACET INJ NOS CPT-4: J3301 04/22/2018 PRESCRIP TRANSMIT VIA ERX SY CPT-4: G8553 04/22/2018 PRESCRIP TRANSMIT VIA ERX SY CPT-4: G8553 01/23/2018 URINALYSIS NONAUTO W/O SCOPE CPT-4: 35293 01/02/2018 URINE CULTURE/ COLONY COUNT CPT-4: 84043 01/02/2018 PRESCRIP TRANSMIT VIA ERX SY CPT-4: G8553 01/02/2018 PRESCRIP TRANSMIT VIA ERX SY CPT-4: G8553 12/28/2017 PRESCRIP TRANSMIT VIA ERX SY CPT-4: G8553 12/21/2017 CEFTRIAXONE SODIUM INJECTION CPT-4: J0696 12/17/2017 THER/PROPH/DIAG INJ SC/IM CPT-4: 11609 12/17/2017 THER/PROPH/DIAG INJ SC/IM CPT-4: 45191 12/17/2017 TRIAMCINOLONE ACET INJ NOS CPT-4: J3301 12/17/2017 PRESCRIP TRANSMIT VIA ERX SY CPT-4: G8553 12/17/2017 DRAIN/INJECT JOINT/BURSA CPT-4: 11808 12/11/2017 TRIAMCINOLONE ACET INJ NOS CPT-4: J3301 12/11/2017 DEXAMETHASONE SODIUM PHOS CPT-4: J1100 12/11/2017 DESTRUCT PREMALG LESION (Cryosurgery) CPT-4: 28530 PRESCRIP TRANSMIT VIA ERX SY CPT-4: G8553 10/17/2017 DEXAMETHASONE SODIUM PHOS CPT-4: J1100 08/02/2017 THER/PROPH/DIAG INJ SC/IM CPT-4: 53848 08/02/2017 TRIAMCINOLONE ACET INJ NOS CPT-4: J3301 08/02/2017 PRESCRIP TRANSMIT VIA ERX SY CPT-4: G8553 08/02/2017 PNEUMOCOCCAL VACC 23 OLIVIA IM CPT-4: 78693 07/24/2017 ADMIN PNEUMOCOCCAL VACCINE CPT-4: G0009 07/24/2017 ALBUTEROL NON-COMP UNIT CPT-4: J7613 07/02/2017 AIRWAY INHALATION TREATMENT CPT-4: 74644 07/02/2017 THER/PROPH/DIAG INJ SC/IM CPT-4: 31880 07/02/2017 METHYLPREDNISOLONE INJECTION CPT-4: J2930 07/02/2017 PRESCRIP TRANSMIT VIA ERX SY CPT-4: G8553 05/29/2017 ROUTINE VENIPUNCTURE CPT-4: 07639 04/17/2017 ASSAY OF IRON CPT-4: 18827 04/17/2017 VITAMIN B-12 CPT-4: 91275 04/17/2017 COMPREHEN METABOLIC PANEL CPT-4: 34066 04/17/2017 COMPLETE CBC W/AUTO DIFF WBC CPT-4: 95372 04/17/2017 ASSAY OF FERRITIN CPT-4: 55114 04/17/2017 ASSAY THYROID STIM HORMONE CPT-4: 37756 04/17/2017 A1C HPLC CPT-4: 47646 04/17/2017 DRAIN/INJECT JOINT/BURSA CPT-4: 18839 02/01/2017 TRIAMCINOLONE ACET INJ NOS CPT-4: J3301 02/01/2017 DEXAMETHASONE SODIUM PHOS CPT-4: J1100 02/01/2017 ROUTINE VENIPUNCTURE CPT-4: 37932 12/27/2016 COMPLETE CBC W/AUTO DIFF WBC CPT-4: 52760 12/27/2016 ROUTINE VENIPUNCTURE CPT-4: 42833 12/21/2016 COMPLETE CBC W/AUTO DIFF WBC CPT-4: 15022 12/21/2016 ROUTINE VENIPUNCTURE CPT-4: 85735 12/12/2016 COMPLETE CBC W/AUTO DIFF WBC CPT-4: 21703 12/12/2016 PRESCRIP TRANSMIT VIA ERX SY CPT-4: G8553 10/31/2016 PRESCRIP TRANSMIT VIA ERX SY CPT-4: G8553 10/03/2016 PRESCRIP TRANSMIT VIA ERX SY CPT-4: G8553 09/04/2016 DESTRUCT PREMALG LESION (Cryosurgery) CPT-4: 91963 DESTRUCT PREMALG LES 2-14 CPT-4: 71662 08/22/2016 PRESCRIP TRANSMIT VIA ERX SY CPT-4: G8553 08/10/2016 PRESCRIP TRANSMIT VIA ERX SY CPT-4: G8553 07/06/2016 FLU VACC PRSV FREE INC ANTIG 65 AND OLDER CPT-4: 86418 06/13/2016 PNEUMOCOCCAL VACC 13 OLIVIA IM CPT-4: 79687 06/13/2016 ADMIN INFLUENZA VIRUS VAC CPT-4: G0008 06/13/2016 ADMIN PNEUMOCOCCAL VACCINE CPT-4: G0009 06/13/2016 CERUM REMOVAL CPT-4: 57602 04/05/2016 PRESCRIP TRANSMIT VIA ERX SY CPT-4: G8553 04/03/2016 ROUTINE VENIPUNCTURE CPT-4: 54772 03/06/2016 ASSAY OF FREE THYROXINE CPT-4: 29415 03/06/2016 ASSAY THYROID STIM HORMONE CPT-4: 21988 03/06/2016 COMPREHEN METABOLIC PANEL CPT-4: 00611 03/06/2016 COMPLETE CBC W/AUTO DIFF WBC CPT-4: 98144 03/06/2016 LIPID PANEL CPT-4: 52462 03/06/2016 ASSAY OF PSA TOTAL CPT-4: 93975 03/06/2016 TESTOSTERONE TOTAL - MALE CPT-4: 63781 03/06/2016 A1C HPLC CPT-4: 01959 03/06/2016 ASSAY OF IRON CPT-4: 21347 03/06/2016 VITAMIN B-12 CPT-4: 60863 03/06/2016 INJ TENDON SHEATH/LIGAMENT CPT-4: 67683 02/17/2016 TRIAMCINOLONE ACET INJ NOS CPT-4: J3301 02/17/2016 DEXAMETHASONE SODIUM PHOS CPT-4: J1100 02/17/2016 PRESCRIP TRANSMIT VIA ERX SY CPT-4: G8553 01/31/2016 PRESCRIP TRANSMIT VIA ERX SY CPT-4: G8553 12/30/2015 PRESCRIP TRANSMIT VIA ERX SY CPT-4: G8553 12/06/2015 PRESCRIP TRANSMIT VIA ERX SY CPT-4: G8553 11/15/2015 PPPS, subseq visit CPT-4: G0439 10/05/2015 MICROALBUMIN QUANTITATIVE CPT-4: 54403 10/05/2015 PROTEIN/CREAT URINE WITH RATIO CPT-4: 92195|39721 6 ROUTINE VENIPUNCTURE CPT-4: 08083 07/01/2015 ASSAY OF FREE THYROXINE CPT-4: 95880 07/01/2015 ASSAY THYROID STIM HORMONE CPT-4: 77714 07/01/2015 COMPLETE CBC W/AUTO DIFF WBC CPT-4: 30469 07/01/2015 LIPID PANEL CPT-4: 16585 07/01/2015 ASSAY OF PSA TOTAL CPT-4: 86744 07/01/2015 AEROBIC WOUND CULTURE & STN CPT-4: 23097 06/28/2015 PRESCRIP TRANSMIT VIA ERX SY CPT-4: G8553 06/28/2015 AEROBIC WOUND CULTURE & STN CPT-4: 62410 06/03/2015 PRESCRIP TRANSMIT VIA ERX SY CPT-4: G8553 06/03/2015 ROUTINE VENIPUNCTURE CPT-4: 36910 06/01/2015 COMPREHEN METABOLIC PANEL CPT-4: 11381 06/01/2015 A1C HPLC CPT-4: 93007 06/01/2015 COMPREHEN METABOLIC PANEL CPT-4: 01043 02/25/2015 A1C HPLC CPT-4: 86937 02/25/2015 DESTRUCT PREMALG LESION (Cryosurgery) CPT-4: 83611 PROTEIN/CREAT URINE WITH RATIO CPT-4: 20129|95779 5 MICROALBUMIN QUANTITATIVE CPT-4: 37842 10/27/2014 INFLUENZA ASSAY W/OPTIC CPT-4: 50550 10/21/2014 PRESCRIP TRANSMIT VIA ERX SY CPT-4: G8553 10/06/2014 PRESCRIP TRANSMIT VIA ERX SY CPT-4: G8553 09/21/2014 PRESCRIP TRANSMIT VIA ERX SY CPT-4: G8553 09/02/2014 MICROALBUMIN QUANTITATIVE CPT-4: 69649 08/27/2014 PROTEIN/CREAT URINE WITH RATIO CPT-4: 50393|59090 4 PPPS, subseq visit CPT-4: G0439 08/10/2014 ROUTINE VENIPUNCTURE CPT-4: 96625 08/05/2014 ASSAY OF FREE THYROXINE CPT-4: 37312 08/05/2014 ASSAY THYROID STIM HORMONE CPT-4: 32927 08/05/2014 COMPREHEN METABOLIC PANEL CPT-4: 34497 08/05/2014 COMPLETE CBC W/AUTO DIFF WBC CPT-4: 85646 08/05/2014 LIPID PANEL CPT-4: 83528 08/05/2014 A1C HPLC CPT-4: 21204 08/05/2014 FLUZONE, 5ML (Medicare) CPT-4: Q2038 08/05/2014 ADMIN INFLUENZA VIRUS VAC CPT-4: G0008 08/05/2014 METHYLPREDNISOLONE 40 MG INJ CPT-4: J1030 12/16/2013 TRIAMCINOLONE ACET INJ NOS CPT-4: J3301 12/16/2013 DRAIN/INJECT JOINT/BURSA CPT-4: [id number] 12/16/2013 PRESCRIP TRANSMIT VIA ERX SY CPT-4: G8553 10/09/2013 THER/PROPH/DIAG INJ SC/IM CPT-4: 81270 09/18/2013 METHYLPREDNISOLONE 40 MG INJ CPT-4: J1030 09/18/2013 TRIAMCINOLONE ACET INJ NOS CPT-4: J3301 09/18/2013 PRESCRIP TRANSMIT VIA ERX SY CPT-4: G8553 09/18/2013 PRESCRIP TRANSMIT VIA ERX SY CPT-4: G8553 08/13/2013 ROUTINE VENIPUNCTURE CPT-4: 79357 06/25/2013 ASSAY OF FREE THYROXINE CPT-4: 33579 06/25/2013 ASSAY THYROID STIM HORMONE CPT-4: 64713 06/25/2013 COMPREHEN METABOLIC PANEL CPT-4: 51324 06/25/2013 COMPLETE CBC W/AUTO DIFF WBC CPT-4: 29636 06/25/2013 LIPID PANEL CPT-4: 61141 06/25/2013 A1C GLYCOSYLATED HEMOGLOBIN TEST CPT-4: 76320 013 ROUTINE VENIPUNCTURE CPT-4: 31938 04/09/2013 COMPLETE CBC W/AUTO DIFF WBC CPT-4: 45244 04/09/2013 MYCOPLASMA ANTIBODY, IFA CPT-4: 62266Q5 04/09/2013 ROUTINE VENIPUNCTURE CPT-4: 08579 02/11/2013 ASSAY OF FREE THYROXINE CPT-4: 90277 02/11/2013 ASSAY THYROID STIM HORMONE CPT-4: 14303 02/11/2013 COMPREHEN METABOLIC PANEL CPT-4: 77020 02/11/2013 COMPLETE CBC W/AUTO DIFF WBC CPT-4: 66006 02/11/2013 VITAMIN B 12 FOLIC ACID CPT-4: 88985|02901 02/11/2013 C-REACTIVE PROTEIN CPT-4: 97300 02/11/2013 A1C GLYCOSYLATED HEMOGLOBIN TEST CPT-4: 83209 013 ASSAY OF BLOOD/URIC ACID CPT-4: 90647 02/11/2013 CEFTRIAXONE SODIUM INJECTION CPT-4: J0696 01/31/2013 THER/PROPH/DIAG INJ SC/IM CPT-4: 21968 01/31/2013 THER/PROPH/DIAG INJ SC/IM CPT-4: 65691 01/31/2013 METHYLPREDNISOLONE 40 MG INJ CPT-4: J1030 01/31/2013 TRIAMCINOLONE ACET INJ NOS CPT-4: J3301 01/31/2013 ROUTINE VENIPUNCTURE CPT-4: 25377 09/19/2012 COMPREHEN METABOLIC PANEL CPT-4: 49168 09/19/2012 LIPID PANEL CPT-4: 53280 09/19/2012 A1C GLYCOSYLATED HEMOGLOBIN TEST CPT-4: 59631 012 PNEUMOCOCCAL VACC 23 OLIVIA IM CPT-4: 72876 07/10/2012 FLUZONE, 5ML (Medicare) CPT-4: Q2038 07/10/2012 ADMIN INFLUENZA VIRUS VAC CPT-4: G0008 07/10/2012 ADMIN PNEUMOCOCCAL VACCINE CPT-4: G0009 07/10/2012 ROUTINE VENIPUNCTURE CPT-4: 31067 05/06/2012 ASSAY OF FREE THYROXINE CPT-4: 21556 05/06/2012 ASSAY THYROID STIM HORMONE CPT-4: 02337 05/06/2012 COMPREHEN METABOLIC PANEL CPT-4: 30210 05/06/2012 COMPLETE CBC W/AUTO DIFF WBC CPT-4: 37990 05/06/2012 LIPID PANEL CPT-4: 35100 05/06/2012 A1C GLYCOSYLATED HEMOGLOBIN TEST CPT-4: 42857 012 IMMUNIZATION ADMIN CPT-4: 73912 02/05/2012 FLUZONE, 5ML (Medicare) CPT-4: Q2038 08/10/2011 ADMIN INFLUENZA VIRUS VAC CPT-4: G0008 08/10/2011 ROUTINE VENIPUNCTURE CPT-4: 41984 07/26/2011 ASSAY OF FREE THYROXINE CPT-4: 88766 07/26/2011 ASSAY THYROID STIM HORMONE CPT-4: 29756 07/26/2011 COMPREHEN METABOLIC PANEL CPT-4: 91868 07/26/2011 COMPLETE CBC W/AUTO DIFF WBC CPT-4: 06149 07/26/2011 LIPID PANEL CPT-4: 62910 07/26/2011 A1C GLYCOSYLATED HEMOGLOBIN TEST CPT-4: 87738 011 ASSAY OF PSA TOTAL CPT-4: 41746 07/26/2011 ROUTINE VENIPUNCTURE CPT-4: 15543 01/19/2011 ASSAY OF NATRIURETIC PEPTIDE CPT-4: 34450 01/19/2011 THER/PROPH/DIAG INJ SC/IM CPT-4: 28000 01/19/2011 CEFTRIAXONE SODIUM INJECTION CPT-4: J0696 01/19/2011 METHYLPREDNISOLONE INJECTION CPT-4: J2930 01/19/2011 THER/PROPH/DIAG INJ SC/IM CPT-4: 07156 01/19/2011 THER/PROPH/DIAG INJ SC/IM CPT-4: 98431 01/18/2011 CEFTRIAXONE SODIUM INJECTION CPT-4: J0696 01/18/2011 METHYLPREDNISOLONE INJECTION CPT-4: J2930 01/18/2011 THER/PROPH/DIAG INJ SC/IM CPT-4: 71916 01/18/2011 THER/PROPH/DIAG INJ SC/IM CPT-4: 47015 12/21/2010 TESTOSTERONE CYPIONAT 100 MG CPT-4: J1070 12/21/2010 ROUTINE VENIPUNCTURE CPT-4: 64638 12/19/2010 TESTOSTERONE TOTAL - MALE CPT-4: 35889 12/19/2010 ROUTINE VENIPUNCTURE CPT-4: 70292 12/07/2010 COMPLETE CBC W/AUTO DIFF WBC CPT-4: 05717 12/07/2010 COMPREHEN METABOLIC PANEL CPT-4: 75647 12/07/2010 LIPID PANEL CPT-4: 93640 12/07/2010 A1C GLYCOSYLATED HEMOGLOBIN TEST CPT-4: 68044 011 ASSAY OF PSA TOTAL CPT-4: 60845 12/07/2010 ROUTINE VENIPUNCTURE CPT-4: 70824 04/05/2010 PRESCRIP TRANSMIT VIA ERX SY CPT-4: G8553 04/05/2010 ROUTINE VENIPUNCTURE CPT-4: 88860 01/13/2010 METHYLPREDNISOLONE INJECTION CPT-4: J2930 12/22/2009 THER/PROPH/DIAG INJ SC/IM CPT-4: 53830 12/22/2009 THER/PROPH/DIAG INJ SC/IM CPT-4: 88375 12/22/2009 CEFTRIAXONE SODIUM INJECTION CPT-4: J0696 12/22/2009 ROUTINE VENIPUNCTURE CPT-4: 13497 12/22/2009 COMPLETE CBC W/AUTO DIFF WBC CPT-4: 45582 12/22/2009 RBC SED RATE, AUTOMATED CPT-4: 99328 12/22/2009 RPR FE/E/EN/L/M 20.1-30.0 CM CPT-4: 98914 12/22/2009 EKG FOR INITIAL PREVENT EXAM CPT-4: G0403 12/22/2009 THER/PROPH/DIAG INJ SC/IM CPT-4: 80548 12/16/2009 KETOROLAC TROMETHAMINE INJ CPT-4: J1885 12/16/2009 [...] 1: 126/68 Code: 8480-6 BMI: 30.2 Code: 86776-8 Heart Rate 1: 92 bpm Height: 6' Respiratory Rate: 22 bpm SpO2: 94% Tempera ture: 36.9 (C) / 98.5 (F) Weight: 223 lbs 08/21/2018 Blood Pressure 1: 160/70 Code: 8480-6 Heart Rate 1: 79 bpm Respiratory Rate: 20 bpm SpO2: 94% Temperature: 36.7 (C) / 98.0 (F) We ight: 226 lbs 8 oz 08/07/2018 Blood Pressure 1: 138/70 Code: 8480-6 BMI: 30.1 Code: 65705-0 Heart Rate 1: 80 bpm Height: 6' Respiratory Rate: 20 bpm SpO2: 94% Tempera ture: 36.9 (C) / 98.5 (F) Weight: 222 lbs 05/23/2018 Blood Pressure 1: 148/66 Code: 8480-6 BMI: 30.0 Code: 40526-7 Heart Rate 1: 96 bpm Height: 6' Respiratory Rate: 22 bpm SpO2: 94% Tempera ture: 37.3 (C) / 99.1 (F) Weight: 221 lbs 05/02/2018 Blood Pressure 1: 146/78 Code: 8480-6 BMI: 29.6 Code: 16799-2 Heart Rate 1: 78 bpm Height: 6' Respiratory Rate: 26 bpm SpO2: 94% Tempera ture: 35.7 (C) / 96.2 (F) Weight: 218 lbs 04/29/2018 Blood Pressure 1: 142/62 Code: 8480-6 BMI: 28.6 Code: 59361-2 Heart Rate 1: 82 bpm Height: 6' Respiratory Rate: 22 bpm SpO2: 98% Tempera ture: 36.4 (C) / 97.6 (F) Weight: 211 lbs 04/22/2018 Blood Pressure 1: 126/64 Code: 8480-6 BMI: 30.0 Code: 78458-0 Heart Rate 1: 96 bpm Height: 6' [...] 1: 144/78 Code: 8480-6 BMI: 30.7 Code: 38263-5 Heart Rate 1: 92 bpm Height: 6' Respiratory Rate: 28 bpm SpO2: 94% Tempera ture: 36.9 (C) / 98.4 (F) Weight: 226 lbs 12/28/2017 Blood Pressure 1: 136/80 Code: 8480-6 Heart Rate 1: 92 bpm Respiratory Rate: 28 bpm SpO2: 94% Temperature: 36.7 (C) / 98.1 (F) 12/21/2017 Blood Pressure 1: 146/84 Code: 8480-6 BMI: 31.1 Code: 25569-9 Heart Rate 1: 84 bpm Height: 6' [...] 1: 142/64 Code: 8480-6 BMI: 31.3 Code: 09938-4 Heart Rate 1: 98 bpm Height: 6' Respiratory Rate: 24 bpm SpO2: 94% Tempera ture: 36.4 (C) / 97.6 (F) Weight: 231 lbs 10/17/2017 Blood Pressure 1: 140/68 Code: 8480-6 BMI: 31.7 Code: 76089-3 Heart Rate 1: 88 bpm Height: 6' Respiratory Rate: 20 bpm SpO2: 94% Tempera ture: 36.8 (C) / 98.3 (F) Weight: 234 lbs 08/02/2017 Blood Pressure 1: 142/80 Code: 8480-6 BMI: 31.1 Code: 50801-0 Heart Rate 1: 86 bpm Height: 6' Respiratory Rate: 20 bpm SpO2: 90% Tempera ture: 35.9 (C) / 96.7 (F) Weight: 229 lbs 07/02/2017 Blood Pressure 1: 146/64 Code: 8480-6 BMI: 29.6 Code: 11150-8 Heart Rate 1: 96 bpm Height: 6' Respiratory Rate: 20 bpm Temperature: 36 .4 (C) / 97.6 (F) Weight: 218 lbs 05/29/2017 Blood Pressure 1: 152/68 Code: 8480-6 BMI: 31.5 Code: 72936-9 Heart Rate 1: 100 bpm Height: 6' Respiratory Rate: 20 bpm SpO2: 92% Tempera ture: 36.9 (C) / 98.4 (F) Weight: 232 lbs 02/01/2017 Blood Pressure 1: 146/64 Code: 8480-6 BMI: 30.7 Code: 87629-9 Heart Rate 1: 76 bpm Height: 6' Respiratory Rate: 20 bpm SpO2: 95% Tempera ture: 36.8 (C) / 98.2 (F) Weight: 226 lbs 01/29/2017 Blood Pressure 1: 146/78 Code: 8480-6 Heart Rate 1: 84 bpm Respiratory Rate: 20 bpm SpO2: 96% Temperature: 36.1 (C) / 97.0 (F) We ight: 226 lbs 12/21/2016 Blood Pressure 1: 126/60 Code: 8480-6 BMI: 30.8 Code: 53818-0 Heart Rate 1: 88 bpm Height: 6' Respiratory Rate: 22 bpm SpO2: 94% Tempera ture: 36.7 (C) / 98.0 (F) Weight: 227 lbs 12/14/2016 Blood Pressure 1: 126/70 Code: 8480-6 BMI: 29.8 Code: 78580-6 Heart Rate 1: 92 bpm Height: 6' Respiratory Rate: 22 bpm SpO2: 93% Tempera ture: 36.8 (C) / 98.2 (F) Weight: 220 lbs 11/14/2016 Blood Pressure 1: 128/62 Code: 8480-6 Heart Rate 1: 100 bpm Respiratory Rate: 20 bpm SpO2: 96% Temperature: 36.6 (C) / 97.8 (F) We ight: 220 lbs 10/31/2016 Blood Pressure 1: 142/60 Code: 8480-6 BMI: 30.1 Code: 53341-0 Heart Rate 1: 112 bpm Height: 6' Respiratory Rate: 24 bpm SpO2: 93% Tempera ture: 37.1 (C) / 98.7 (F) Weight: 222 lbs 10/03/2016 Blood Pressure 1: 136/78 Code: 8480-6 Heart Rate 1: 106 bpm Respiratory Rate: 24 bpm SpO2: 93% Temperature: 36.6 (C) / 97.8 (F) We ight: 221 lbs 09/04/2016 Blood Pressure 1: 112/44 Code: 8480-6 BMI: 30.1 Code: 97958-6 Heart Rate 1: 90 bpm Height: 6' Respiratory Rate: 20 bpm SpO2: 93% Tempera ture: 36.6 (C) / 97.9 (F) Weight: 222 lbs 08/22/2016 Blood Pressure 1: 142/68 Code: 8480-6 BMI: 30.4 Code: 66631-9 Heart Rate 1: 100 bpm Height: 6' Respiratory Rate: 24 bpm SpO2: 93% Tempera ture: 36.7 (C) / 98.1 (F) Weight: 224 lbs 08/10/2016 Blood Pressure 1: 134/60 Code: 8480-6 BMI: 30.2 Code: 51184-5 Heart Rate 1: 76 bpm Height: 6' [...] 1: 122/72 Code: 8480-6 BMI: 30.7 Code: 10234-3 Heart Rate 1: 96 bpm Height: 6' Respiratory Rate: 22 bpm SpO2: 96% Tempera ture: 35.9 (C) / 96.7 (F) Weight: 226 lbs 04/03/2016 Blood Pressure 1: 146/64 Code: 8480-6 BMI: 30.8 Code: 91515-5 Heart Rate 1: 76 bpm Height: 6' Respiratory Rate: 20 bpm Temperature: 36 .8 (C) / 98.2 (F) Weight: 227 lbs 03/02/2016 Blood Pressure 1: 148/60 Code: 8480-6 BMI: 31.1 Code: 98195-1 Heart Rate 1: 80 bpm Height: 6' Respiratory Rate: 22 bpm SpO2: 94% Tempera ture: 36.6 (C) / 97.8 (F) Weight: 229 lbs 02/17/2016 Blood Pressure 1: 132/60 Code: 8480-6 BMI: 31.3 Code: 62532-8 Heart Rate 1: 80 bpm Height: 6' Respiratory Rate: 20 bpm Temperature: 36 .9 (C) / 98.4 (F) Weight: 231 lbs 02/14/2016 Blood Pressure 1: 126/70 Code: 8480-6 BMI: 31.3 Code: 45308-1 Heart Rate 1: 80 bpm Height: 6' Respiratory Rate: 24 bpm SpO2: 95% Tempera ture: 36.9 (C) / 98.5 (F) Weight: 231 lbs 01/31/2016 Blood Pressure 1: 136/60 Code: 8480-6 Heart Rate 1: 76 bpm Respiratory Rate: 22 bpm Temperature: 37.0 (C) / 98.6 (F) Weight: 230 lbs 12/30/2015 Blood Pressure 1: 128/58 Code: 8480-6 BMI: 31.2 Code: 87416-6 Heart Rate 1: 80 bpm Height: 6' Respiratory Rate: 20 bpm Temperature: 36 .8 (C) / 98.2 (F) Weight: 230 lbs 12/16/2015 Blood Pressure 1: 122/60 Code: 8480-6 BMI: 32.0 Code: 05899-4 Heart Rate 1: 84 bpm Height: 6' Respiratory Rate: 24 bpm Temperature: 37 .1 (C) / 98.7 (F) Weight: 236 lbs 12/06/2015 Blood Pressure 1: 162/74 Code: 8480-6 BMI: 32.5 Code: 80072-0 Heart Rate 1: 90 bpm Height: 6' Respiratory Rate: 20 bpm SpO2: 96% Tempera ture: 36.4 (C) / 97.6 (F) Weight: 240 lbs 11/15/2015 Blood Pressure 1: 166/80 Code: 8480-6 BMI: 32.4 Code: 70655-1 Heart Rate 1: 92 bpm Height: 6' Respiratory Rate: 28 bpm Temperature: 36 .5 (C) / 97.7 (F) Weight: 239 lbs 10/05/2015 Blood Pressure 1: 146/76 Code: 8480-6 BMI: 32.4 Code: 72092-3 Heart Rate 1: 88 bpm Height: 6' Respiratory Rate: 28 bpm Temperature: 37 .1 (C) / 98.7 (F) Weight: 239 lbs 07/22/2015 Blood Pressure 1: 144/68 Code: 8480-6 BMI: 31.9 Code: 26338-5 Heart Rate 1: 88 bpm Height: 6' [...] 1: 142/64 Code: 8480-6 BMI: 32.1 Code: 80860-7 Heart Rate 1: 80 bpm Height: 6' Respiratory Rate: 18 bpm Temperature: 36 .4 (C) / 97.6 (F) Weight: 237 lbs 06/07/2015 Blood Pressure 1: 164/58 Code: 8480-6 BMI: 32.1 Code: 22287-7 Heart Rate 1: 88 bpm Height: 6' Respiratory Rate: 20 bpm Temperature: 36 .6 (C) / 97.9 (F) Weight: 237 lbs 06/03/2015 Blood Pressure 1: 152/64 Code: 8480-6 BMI: 32.1 Code: 79284-4 Heart Rate 1: 96 bpm Height: 6' Respiratory Rate: 20 bpm Temperature: 37 .4 (C) / 99.3 (F) Weight: 237 lbs 06/01/2015 Blood Pressure 1: 136/70 Code: 8480-6 BMI: 31.7 Code: 80408-6 Heart Rate 1: 72 bpm Height: 6' Respiratory Rate: 22 bpm SpO2: 94% Tempera ture: 36.6 (C) / 97.9 (F) Weight: 234 lbs 02/25/2015 Blood Pressure 1: 146/80 Code: 8480-6 BMI: 32.4 Code: 87209-0 Heart Rate 1: 84 bpm Height: 6' Respiratory Rate: 28 bpm Temperature: 36 .7 (C) / 98.0 (F) Weight: 239 lbs 10/27/2014 Blood Pressure 1: 168/70 Code: 8480-6 BMI: 32.0 Code: 85690-5 Heart Rate 1: 80 bpm Height: 6' Respiratory Rate: 30 bpm SpO2: 98% Tempera ture: 36.4 (C) / 97.6 (F) Weight: 236 lbs 10/21/2014 Blood Pressure 1: 152/58 Code: 8480-6 BMI: 32.1 Code: 88827-5 Heart Rate 1: 78 bpm Height: 6' Respiratory Rate: 20 bpm Temperature: 37 .8 (C) / 100.1 (F) Weight: 237 lbs 10/06/2014 Blood Pressure 1: 132/64 Code: 8480-6 BMI: 32.5 Code: 47965-9 Heart Rate 1: 88 bpm Height: 6' Respiratory Rate: 32 bpm SpO2: 94% Tempera ture: 36.8 (C) / 98.2 (F) Weight: 240 lbs 09/21/2014 Blood Pressure 1: 134/68 Code: 8480-6 BMI: 32.4 Code: 47569-4 Heart Rate 1: 96 bpm Height: 6' Respiratory Rate: 30 bpm Temperature: 36 .7 (C) / 98.1 (F) Weight: 239 lbs 09/08/2014 Blood Pressure 1: 128/74 Code: 8480-6 BMI: 32.4 Code: 34216-5 Heart Rate 1: 82 bpm Height: 6' Respiratory Rate: 28 bpm SpO2: 93% Tempera ture: 36.6 (C) / 97.8 (F) Weight: 239 lbs 09/02/2014 Blood Pressure 1: 164/78 Code: 8480-6 Heart Rate 1: 86 bpm Respiratory Rate: 22 bpm SpO2: 96% Temperature: 36.1 (C) / 97.0 (F) We ight: 239 lbs 08/10/2014 Blood Pressure 1: 152/60 Code: 8480-6 BMI: 32.8 Code: 54637-2 Heart Rate 1: 80 bpm Height: 6' [...] 1: 146/80 Code: 8480-6 BMI: 33.9 Code: 44387-2 Heart Rate 1: 80 bpm Height: 6' [...] 1: 148/78 Code: 8480-6 BMI: 30.5 Code: 32726-1 Heart Rate 1: 84 bpm Height: 6' Respiratory Rate: 28 bpm SpO2: 97% Tempera ture: 36.4 (C) / 97.5 (F) Weight: 225 lbs 08/06/2013 Blood Pressure 1: 158/70 Code: 8480-6 Heart Rate 1: 110 bpm Respiratory Rate: 22 bpm SpO2: 88% Temperature: 39.7 (C) / 103.4 (F) W eight: 07/16/2013 Blood Pressure 1: 148/82 Code: 8480-6 BMI: 31.9 Code: 67923-1 Heart Rate 1: 80 bpm Height: 6' Respiratory Rate: 20 bpm Temperature: 36 .6 (C) / 97.9 (F) Weight: 235 lbs 04/09/2013 Blood Pressure 1: 142/78 Code: 8480-6 BMI: 31.5 Code: 94823-9 Heart Rate 1: 88 bpm Height: 6' Respiratory Rate: 32 bpm SpO2: 95% Tempera ture: 37.0 (C) / 98.6 (F) Weight: 232 lbs 02/11/2013 Blood Pressure 1: 146/70 Code: 8480-6 Heart Rate 1: 88 bpm Respiratory Rate: 20 bpm Temperature: 36.8 (C) / 98.3 (F) Weight: 230 lbs 01/31/2013 Blood Pressure 1: 128/70 Code: 8480-6 BMI: 31.6 Code: 88049-6 Heart Rate 1: 84 bpm Height: 6' Respiratory Rate: 24 bpm SpO2: 92% Tempera ture: 36.7 (C) / 98.0 (F) Weight: 233 lbs 01/20/2013 Blood Pressure 1: 148/64 Code: 8480-6 BMI: 31.6 Code: 87544-6 Heart Rate 1: 68 bpm Height: 6' Temperature: 36.1 (C) / 97.0 (F) Weight: 233 lbs 12/19/2012 Blood Pressure 1: 128/68 Code: 8480-6 BMI: 32.0 Code: 69002-6 Heart Rate 1: 64 bpm Height: 6' Temperature: 36.7 (C) / 98.0 (F) Weight: 236 lbs 10/21/2012 Blood Pressure 1: 142/64 Code: 8480-6 BMI: 30.9 Code: 17853-9 Heart Rate 1: 74 bpm Height: 6' Temperature: 36.2 (C) / 97.1 (F) Weight: 228 lbs 09/18/2012 Blood Pressure 1: 126/60 Code: 8480-6 BMI: 31.3 Code: 71531-7 Heart Rate 1: 88 bpm Height: 6' Respiratory Rate: 20 bpm Temperature: 36 .5 (C) / 97.7 (F) Weight: 231 lbs 08/28/2012 Blood Pressure 1: 132/68 Code: 8480-6 BMI: 31.5 Code: 39636-1 Heart Rate 1: 92 bpm Height: 6' Respiratory Rate: 30 bpm SpO2: 94% Tempera ture: 37.1 (C) / 98.7 (F) Weight: 232 lbs 07/10/2012 Blood Pressure 1: 118/70 Code: 8480-6 BMI: 30.5 Code: 16740-9 Heart Rate 1: 72 bpm Height: 6' Respiratory Rate: 24 bpm SpO2: 96% Tempera ture: 36.7 (C) / 98.0 (F) Weight: 225 lbs 05/09/2012 Blood Pressure 1: 124/68 Code: 8480-6 BMI: 29.8 Code: 54363-6 Heart Rate 1: 72 bpm Height: 6' Respiratory Rate: 20 bpm Temperature: 36 .8 (C) / 98.2 (F) Weight: 220 lbs 10/02/2011 Blood Pressure 1: 140/82 Code: 8480-6 BMI: 30.7 Code: 49292-5 Heart Rate 1: 68 bpm Height: 6' Temperature: 36.7 (C) / 98.0 (F) Weight: 226 lbs 08/07/2011 Blood Pressure 1: 122/68 Code: 8480-6 BMI: 30.5 Code: 77988-7 Heart Rate 1: 72 bpm Height: 6' [...] 1: 140/78 Code: 8480-6 BMI: 31.9 Code: 37340-8 Heart Rate 1: 84 bpm Height: 6' Temperature: 36.6 (C) / 97.8 (F) Weight: 235 lbs 12/22/2009 Blood Pressure 1: 140/74 Code: 8480-6 BMI: 31.9 Code: 09403-9 Heart Rate 1: 94 bpm Height: 6' SpO2: 92% Temperature: 35.7 (C) / 96.2 (F) Weight: 235 lbs 12/13/2009 Blood Pressure 1: 146/80 Code: 8480-6 BMI: 33.0 Code: 77860-7 Heart Rate 1: 86 bpm Height: 6' [...] shot follow up 05/08/2019 follow up 04/07/2019 [facility] dizziness 03/24/2019 dizziness 03/21/2019 sore throat 03/13/2019 Patient finished zit hromax last night and has one dose of prednisone left follow up 03/10/2019 ER fwup---patient cu rrently taking zithromax, prednisone and breathing treatments every two hours spasms/spasticity 02/26/2019 follow up 02/13/2019 follow up 01/14/2019 [facility] follow up 12/25/2018 cough 12/09/2018 [...] reports 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 follow up 05/29/2017 Discuss Low Back [...] nightly. Patient has just been discharged from [place] with Pneumonia. Currently on Levaquin once daily. [...] would like evaluated follow up 06/13/2016 [facility] COPD w/exac 06/01/2016 Patient states chest tightness, shortness of breath, and fatigue have worsened in the last 2-3 weeks with exertion. otalgia 04/26/2016 cerumen 04/05/2016 Patient has been maximiliano ing ear drops follow up 04/03/2016 2mo fwup follow up 03/13/2016 Patient here for [facility] on medication education for [...] 02/25/2015 3mo fwup follow up 10/27/2014 Hospital [facility] cough 10/21/2014 follow up 10/06/2014 follow up 09/21/2014 Hospital [facility] follow up 09/08/2014 [facility] cough 09/02/2014 well man exam (65+ years) 08/10/2014 lab draw 08/05/2014 flu shot follow up 05/05/2014 6wk fwup follow up 03/24/2014 2wk fw shortness of breath 03/10/2014 shoulder pain 12/16/2013 Request back brace w hen working/lifting---chiropractor had recommended he get one to wear shortness of breath 10/09/2013 cough 09/18/2013 follow up 08/13/2013 [facility] cough 08/06/2013 follow up 07/16/2013 [...] 12/13/2009 Encounters Encounter Performer Location Codes Date ([id number]) OFFICE/OUTPATIENT VISIT EST Diagnosis: Chronic obstructive pulmonary disease, unspecified[ICD10: J44.9] Lita BARAKAT [employer] CPT-4: 52785 02/04/2020 ([id number]) OFFICE/OUTPATIENT VISIT EST Diagnosis: Chronic obstructive pulmonary disease with (acute) exacerbation[ICD10: J44.1] Lita Ramirez [employer] CPT- 4: 07347 12/25/2019 ([id number]) OFFICE/OUTPATIENT VISIT EST Diagnosis: Noncompliance with diabetes treatment[ICD10: Z91.19] Diagnosis: Insomnia[ICD10: G47.00] Diagnosis: Pain in right knee[ICD10: M25.561] Lita Barakat [facility] CPT-4: 66829 12/22/2019 ([id number]) OFFICE/OUTPATIENT VISIT EST Diagnosis: Chronic respiratory failure with hypercapnia[ICD10: J96.12] Diagnosis: Chronic airway obstruction, not elsewhere classified[ICD10: J44.9] Diagnosis: Basal cell carcinoma, face[ICD10: C44.310] [facility]: 81486 11/12/2019 ([id number]) OFFICE/OUTPATIENT VISIT EST Diagnosis: Chronic obstructive pulmonary disease, unspecified[ICD10: J44.9] Diagnosis: Right thyroid nodule[ICD10: E04.1] [facility]: 13197 09/11/2019 ([id number]) OFFICE/OUTPATIENT VISIT EST Diagnosis: Chronic bronchitis[ICD10: J42] 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] Diagnosis: FLU VACCINE[ICD10: Z23] Lita [facility] CPT-4: 15873 08/07/2019 ([id number]) OFFICE/OUTPATIENT VISIT EST Diagnosis: Chronic obstructive pulmonary disease with (acute) exacerbation[ICD10: J44.1] Aut[facility]- [facility]: 94641 07/14/2019 ([id number]) OFFICE/OUTPATIENT VISIT EST Diagnosis: Primary insomnia[ICD10: F51.01] Diagnosis: Dyspepsia and other specified disorders of function of stomach[ICD10: K31.89] [facility]: 82530 07/01/2019 ([id number]) OFFICE/OUTPATIENT VISIT EST Diagnosis: Epigastric pain[ICD10: R10.13] Diagnosis: Nausea[ICD10: R11.0] Diagnosis: Weight loss[ICD10: R63.4] [facility] CPT[facility]: 92753 06/24/2019 ([id number]) OFFICE/OUTPATIENT VISIT EST Diagnosis: Chronic obstructive pulmonary disease, unspecified[ICD10: J44.9] Diagnosis: Chronic insomnia[ICD10: F51.04] Diagnosis: Anemia[ICD10: D64.9] Diagnosis: Diplopia[ICD10: H53.2] Diagnosis: [place][ICD10: F30.9] [facility]: 21688 06/17/2019 ([id number]) NURSE/OUTPATIENT VISIT EST Diagnosis: Vitamin B12 deficiency anemia, unspecified[ICD10: D51.9] Lita BARAKAT DO [facility] CPT-4: 58707 06/10/2019 ([id number]) NURSE/OUTPATIENT VISIT EST Diagnosis: Vitamin B12 deficiency anemia, unspecified[ICD10: D51.9] Lita BARAKAT DO [facility] CPT-4: 54612 06/02/2019 ([id number]) NURSE/OUTPATIENT VISIT EST Diagnosis: Vitamin B12 deficiency anemia, unspecified[ICD10: D51.9] Lita BARAKAT DO [facility] CPT-4: 23741 05/27/2019 ([id number]) NURSE/OUTPATIENT VISIT EST Diagnosis: Vitamin B12 deficiency anemia, unspecified[ICD10: D51.9] Lita BARAKAT DO [facility] CPT-4: 47050 05/12/2019 ([id number]) OFFICE/OUTPATIENT VISIT EST Diagnosis: Restless legs syndrome[ICD10: G25.81] Diagnosis: Primary insomnia[ICD10: F51.01] Diagnosis: Anemia, unspecified[ICD10: D64.9] Diagnosis: Type 2 diabetes mellitus with hyperglycemia[ICD10: E11.65] Diagnosis: Vitamin D deficiency, unspecified[ICD10: E55.9] Lita BARAKAT DO [facility] CPT-4: 84245 05/08/2019 ([id number]) OFFICE/OUTPATIENT VISIT EST Diagnosis: Pain in right knee[ICD10: M25.561] Diagnosis: Restless legs syndrome[ICD10: G25.81] Diagnosis: Insomnia, unspecified[ICD10: G47.00] Lita BARAKAT DO [facility] CPT-4: 04788 04/07/2019 ([id number]) NO CHARGE Diagnosis: Chronic obstructive pulmonary disease with (acute) exacerbation[ICD10: J44.1] Diagnosis: Dizziness and giddiness[ICD10: R42] Diagnosis: Generalized anxiety disorder[ICD10: F41.1] Autumn BARAKAT DO [facility] CPT-4: 67850 03/24/2019 ([id number]) OFFICE/OUTPATIENT VISIT EST Diagnosis: Chronic obstructive pulmonary disease with (acute) exacerbation[ICD10: J44.1] Diagnosis: Dizziness and giddiness[ICD10: R42] Autumn BARAKAT DO [facility] CPT-4: 60061 03/21/2019 ([id number]) OFFICE/OUTPATIENT VISIT EST Diagnosis: Candidal stomatitis[ICD10: B37.0] Lita BARAKAT DO [facility] CPT-4: 24689 03/13/2019 ([id number]) OFFICE/OUTPATIENT VISIT EST Diagnosis: Chronic obstructive pulmonary disease with acute lower respiratory infection[ICD10: J44.0] Diagnosis: Restless legs syndrome[ICD10: G25.81] Lita BARAKAT DO [facility] CPT-4: 40609 03/10/2019 ([id number]) OFFICE/OUTPATIENT VISIT EST Diagnosis: Restless legs syndrome[ICD10: G25.81] Lita BARAKAT [facility] CPT-4: 50552 02/26/2019 ([id number]) OFFICE/OUTPATIENT VISIT EST Diagnosis: Primary insomnia[ICD10: F51.01] Diagnosis: Chronic obstructive pulmonary disease, unspecified[ICD10: J44.9] Lita BARAKAT DO [facility] CPT-4: 63566 02/13/2019 ([id number]) OFFICE/OUTPATIENT VISIT EST Diagnosis: Chronic obstructive pulmonary disease, unspecified[ICD10: J44.9] Diagnosis: Chronic respiratory failure with hypoxia[ICD10: J96.11] Diagnosis: Chronic respiratory failure with hypercapnia[ICD10: J96.12] Lita BARAKAT DO [facility] CPT-4: 23330 01/14/2019 ([id number]) OFFICE/OUTPATIENT VISIT EST Diagnosis: Chronic respiratory failure with hypoxia[ICD10: J96.11] Diagnosis: Patient's noncompliance with other medical treatment and regimen[ICD10: Z91.19] Diagnosis: Chronic obstructive pulmonary disease with (acute) exacerbation[ICD10: J44.1] Lita BARAKAT [facility] CPT- 4: 62945 12/25/2018 ([id number]) OFFICE/OUTPATIENT VISIT EST Diagnosis: Essential (primary) hypertension[ICD10: I10] Diagnosis: Type 2 diabetes mellitus with hyperglycemia[ICD10: E11.65] Diagnosis: Hypothyroidism, unspecified[ICD10: E03.9] Diagnosis: Hyperlipidemia, unspecified[ICD10: E78.5] Diagnosis: Acute recurrent maxillary sinusitis[ICD10: J01.01] Ines Lavonne ALYLINE DonovanFerdinand YUVAL [facility] CPT-4: 88381 12/09/2018 ([id number]) OFFICE/OUTPATIENT VISIT EST Diagnosis: Candidal stomatitis[ICD10: B37.0] Lita Segura DonovanFerdinand YUVAL [facility] CPT-4: 71423 12/05/2018 ([id number]) OFFICE/OUTPATIENT VISIT EST Diagnosis: Acute recurrent sinusitis, unspecified[ICD10: J01.91] Diagnosis: Pain in right knee[ICD10: M25.561] Lita GONZALES DonovanFerdinand YUVAL [facility] CPT-4: 86869 10/23/2018 ([id number]) OFFICE/OUTPATIENT VISIT EST Diagnosis: Restless legs syndrome[ICD10: G25.81] Diagnosis: Basal cell carcinoma of skin of scalp and neck[ICD10: C44.41] Lita Gianniirina CRAWFORD DonovanFerdinand YUVAL [facility] CPT-4: 18937 08/21/2018 ([id number]) OFFICE/OUTPATIENT VISIT EST Diagnosis: Chronic obstructive pulmonary disease with acute lower respiratory infection[ICD10: J44.0] Diagnosis: Restless legs syndrome[ICD10: G25.81] Lita TRAN DonovanFerdinand YUVAL [facility] CPT-4: 74130 08/07/2018 ([id number]) OFFICE/OUTPATIENT VISIT EST Diagnosis: Chronic obstructive pulmonary disease with acute lower respiratory infection[ICD10: J44.0] Lita CRAWFORD DonovanFerdinand YUVAL [facility] CPT-4: 30215 05/23/2018 ([id number]) OFFICE/OUTPATIENT VISIT EST Diagnosis: Candidal stomatitis[ICD10: B37.0] Lita Segura DonovanFerdinand YUVAL [facility] CPT-4: 34452 05/02/2018 ([id number]) OFFICE/OUTPATIENT VISIT EST Diagnosis: Candidal stomatitis[ICD10: B37.0] Diagnosis: Other retention of urine[ICD10: R33.8] Diagnosis: Chronic obstructive pulmonary disease with acute lower respiratory infection[ICD10: J44.0] Autumn BARAKAT DO [facility] CPT-4: 23902 04/29/2018 ([id number]) OFFICE/OUTPATIENT VISIT EST Diagnosis: Chronic obstructive pulmonary disease with acute lower respiratory infection[ICD10: J44.0] Lita BARAKAT DO [facility] CPT-4: 83249 04/22/2018 ([id number]) OFFICE/OUTPATIENT VISIT EST Diagnosis: Unilateral primary osteoarthritis, right knee[ICD10: M17.11] Diagnosis: Squamous cell carcinoma of skin, unspecified[ICD10: C44.92] Lita BARAKAT DO [facility] CPT-4: 95703 01/28/2018 ([id number]) OFFICE/OUTPATIENT VISIT EST Diagnosis: Pain in right knee[ICD10: M25.561] Diagnosis: 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] Lita BARAKAT DO [facility] CPT-4: 74803 01/23/2018 ([id number]) OFFICE/OUTPATIENT VISIT EST Diagnosis: Urinary tract infection, site not specified[ICD10: N39.0] Diagnosis: Chronic obstructive pulmonary disease with acute lower respiratory infection[ICD10: J44.0] Lita BARAKAT DO [facility] CPT-4: 08566 01/02/2018 ([id number]) OFFICE/OUTPATIENT VISIT EST Diagnosis: Chronic obstructive pulmonary disease with (acute) exacerbation[ICD10: J44.1] Autumn BARAKAT DO [facility] CPT- 4: 29418 12/28/2017 ([id number]) OFFICE/OUTPATIENT VISIT EST Diagnosis: Acute bronchitis, unspecified[ICD10: J20.9] Autumn BARAKAT DO [facility] CPT-4: 32117 12/21/2017 ([id number]) OFFICE/OUTPATIENT VISIT EST Diagnosis: Chronic obstructive pulmonary disease with acute lower respiratory infection[ICD10: J44.0] Diagnosis: Pain in right knee[ICD10: M25.561] Autumn BARAKAT [facility] CPT-4: 21521 12/17/2017 ([id number]) OFFICE/OUTPATIENT VISIT EST Diagnosis: Laceration without foreign body of right hand, sequela[ICD10: S61.411S] Diagnosis: Restless legs syndrome[ICD10: G25.81] Lita Barakat ALIZEONIEL AGNE Ashley [facility] CPT-4: 49743 10/17/2017 OFFICE/OUTPATIENT VISIT EST Diagnosis: Chronic obstructive pulmonary disease with acute lower respiratory infection[ICD10: J44.0] Autumn BARAKAT [facility] CPT-4: 42034 08/02/2017 ([id number]) OFFICE/OUTPATIENT VISIT EST Diagnosis: PNEUMOCOCCAL VACCINE[ICD10: Z23] Lita [facility] CPT-4: 96096 07/24/2017 OFFICE/OUTPATIENT VISIT EST Diagnosis: Chronic obstructive pulmonary disease with (acute) exacerbation[ICD10: J44.1] Autumn BARAKAT [facility] CPT- 4: 14695 07/02/2017 OFFICE/OUTPATIENT VISIT EST Diagnosis: Low back pain[ICD10: M54.5] Ruchi Ramirez Filiberto BRANDIN [facility] CPT-4: 61269 05/29/2017 ([id number]) OFFICE/OUTPATIENT VISIT EST Diagnosis: Essential (primary) hypertension[ICD10: I10] Diagnosis: Hypothyroidism, unspecified[ICD10: E03.9] Diagnosis: Dizziness and giddiness[ICD10: R42] Diagnosis: Other abnormality of red blood cells[ICD10: R71.8] Diagnosis: Contracture of muscle, unspecified site[ICD10: M62.40] Lita Yuval ALYLINE DonovanFerdinand YUVAL [facility] CPT-4: 07990 04/17/2017 OFFICE/OUTPATIENT VISIT EST Diagnosis: Pain in left shoulder[ICD10: M25.512] Ruchi TRAN DonovanFerdinand YUVAL [facility] CPT-4: 31115 01/29/2017 ([id number]) OFFICE/OUTPATIENT VISIT EST Diagnosis: Anemia, unspecified[ICD10: D64.9] Lita BARAKAT DO [facility] CPT-4: 30090 12/27/2016 ([id number]) OFFICE/OUTPATIENT VISIT EST Diagnosis: Other fatigue[ICD10: R53.83] Diagnosis: Other iron deficiency anemias[ICD10: D50.8] Lita BARAKAT DO [facility] CPT-4: 33956 12/21/2016 ([id number]) OFFICE/OUTPATIENT VISIT EST Diagnosis: Anemia, unspecified[ICD10: D64.9] Diagnosis: Other fatigue[ICD10: R53.83] Diagnosis: Restless legs syndrome[ICD10: G25.81] Lita BARAKAT DO [facility] CPT-4: 20589 12/14/2016 ([id number]) OFFICE/OUTPATIENT VISIT EST Diagnosis: Anemia, unspecified[ICD10: D64.9] Diagnosis: Other abnormality of red blood cells[ICD10: R71.8] Lita BARAKAT DO [facility] CPT-4: 24401 12/12/2016 ([id number]) OFFICE/OUTPATIENT VISIT EST Diagnosis: Pneumonia, unspecified organism[ICD10: J18.9] Diagnosis: Restless legs syndrome[ICD10: G25.81] Magda BARAKAT DO [facility] CPT-4: 26023 11/14/2016 ([id number]) OFFICE/OUTPATIENT VISIT EST Diagnosis: Candidal stomatitis[ICD10: B37.0] Lita BARAKAT DO [facility] CPT-4: 39420 10/31/2016 ([id number]) OFFICE/OUTPATIENT VISIT EST Diagnosis: Acute upper respiratory infection, unspecified[ICD10: J06.9] Diagnosis: Personal history of pneumonia (recurrent)[ICD10: Z87.01] Magda BARAKAT DO [facility] CPT-4: 09159 10/03/2016 ([id number]) OFFICE/OUTPATIENT VISIT EST Diagnosis: Restless legs syndrome[ICD10: G25.81] Diagnosis: Insomnia, unspecified[ICD10: G47.00] Magda [facility] CPT-4: 65448 09/04/2016 ([id number]) OFFICE/OUTPATIENT VISIT EST Diagnosis: Restless legs syndrome[ICD10: G25.81] Diagnosis: Primary insomnia[ICD10: F51.01] Lita BARAKAT [facility] CPT-4: 71220 08/10/2016 OFFICE/OUTPATIENT VISIT EST Diagnosis: Toxic gastroenteritis and colitis[ICD10: K52.1] Diagnosis: Dizziness and giddiness[ICD10: R42] Diagnosis: Headache[ICD10: R51] Diagnosis: Restless legs syndrome[ICD10: G25.81] Lita [facility] CPT-4: 20386 07/06/2016 ([id number]) OFFICE/OUTPATIENT VISIT EST Diagnosis: Chest pain, unspecified[ICD10: R07.9] Diagnosis: Dyspnea, unspecified[ICD10: R06.00] Magda [facility] CPT-4: 63927 06/22/2016 ([id number]) OFFICE/OUTPATIENT VISIT EST 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] Diagnosis: PNEUMOCOCCAL VACCINE[ICD10: Z23] Diagnosis: FLU VACCINE[ICD10: Z23] Lita [facility] CPT-4: 81215 06/13/2016 ([id number]) OFFICE/OUTPATIENT VISIT EST Diagnosis: Chest pain, unspecified[ICD10: R07.9] Diagnosis: Other forms of dyspnea[ICD10: R06.09] Diagnosis: Shortness of breath[ICD10: R06.02] Diagnosis: Other fatigue[ICD10: R53.83] Magda [facility] CPT-4: 89488 06/01/2016 ([id number]) OFFICE/OUTPATIENT VISIT EST Diagnosis: Unspecified hearing loss, left ear[ICD10: H91.92] Diagnosis: Other specified disorders of Eustachian tube, left ear[ICD10: H69.82] Magda Navneet [facility] CPT-4: 69248 11/2015 ([id number]) OFFICE/OUTPATIENT VISIT EST Diagnosis: Impacted cerumen, bilateral[ICD10: H61.23] Diagnosis: DM W/O COMPLICATION TYPE I, 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: E10.9] Diagnosis: Generalized anxiety disorder[ICD10: F41.1] Lita Gianniirina LITA Ashley BARAKAT DO [facility] CPT-4: 71941 04/03/2016 ([id number]) OFFICE/OUTPATIENT VISIT EST Diagnosis: 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] Lita CRAWFORD DonovanFerdinand YUVAL JOHNSON [facility] CPT - 4: 67752 03/13/2016 ([id number]) OFFICE/OUTPATIENT VISIT EST Diagnosis: Type 2 diabetes mellitus with hyperglycemia[ICD10: E11.65] Diagnosis: Hyperlipidemia, unspecified[ICD10: E78.5] Diagnosis: Essential (primary) hypertension[ICD10: I10] Diagnosis: Chronic obstructive pulmonary disease, unspecified[ICD10: J44.9] Diagnosis: Testicular hypofunction[ICD10: E29.1] Diagnosis: Male erectile dysfunction, unspecified[ICD10: N52.9] Diagnosis: Anemia, unspecified[ICD10: D64.9] Lita Segura DonovanFerdinand YUVAL Gamersband [facility] CPT-4: 54812 03/06/2016 ([id number]) OFFICE/OUTPATIENT VISIT EST Diagnosis: Type 2 diabetes mellitus with hyperglycemia[ICD10: E11.65] Diagnosis: Hyperlipidemia, unspecified[ICD10: E78.5] Diagnosis: Chronic obstructive pulmonary disease, unspecified[ICD10: J44.9] Diagnosis: Male erectile dysfunction, unspecified[ICD10: N52.9] Lita CRAWFORD DonovanFerdinand YUVAL JOHNSON [facility] CPT-4: 52140 03/02/2016 ([id number]) OFFICE/OUTPATIENT VISIT EST Diagnosis: Pain in right foot[ICD10: M79.671] Magda GONZALES DonovanFerdinand YUVAL Gamersband [facility] CPT-4: 35970 02/14/2016 OFFICE/OUTPATIENT VISIT EST Diagnosis: Generalized anxiety disorder[ICD10: F41.1] Lita CRAWFORD DonovanFerdinand YUVAL [facility] CPT-4: 28164 01/31/2016 ([id number]) OFFICE/OUTPATIENT VISIT EST Diagnosis: Generalized anxiety disorder[ICD10: F41.1] Lita BARAKAT Gamersband [facility] CPT-4: 68666 12/30/2015 ([id number]) OFFICE/OUTPATIENT VISIT EST Diagnosis: Localized swelling, mass and lump, neck[ICD10: R22.1] Lita BARAKAT DO [facility] CPT-4: 30099 12/16/2015 OFFICE/OUTPATIENT VISIT EST Diagnosis: Localized enlarged lymph nodes[ICD10: R59.0] Diagnosis: Otalgia, left ear[ICD10: H92.02] Stephanie BARAKAT DO [facility] CPT-4: 62981 12/06/2015 OFFICE/OUTPATIENT VISIT EST Diagnosis: Localized enlarged lymph nodes[ICD10: R59.0] Diagnosis: Squamous cell carcinoma of skin, unspecified[ICD10: C44.92] Diagnosis: Actinic keratosis[ICD10: L57.0] Stephanie BARAKAT DO [facility] CPT-4: 40845 11/15/2015 OFFICE/OUTPATIENT VISIT EST Diagnosis: Cellulitis of left lower limb[ICD10: L03.116] Diagnosis: Encounter for examination and observation for other specified reasons[ICD10: Z04.8] Diagnosis: Chronic obstructive pulmonary disease, unspecified[ICD10: J44.9] Stephanie BARAKAT DO [facility] CPT-4: 57994 07/22/2015 OFFICE/OUTPATIENT VISIT EST Diagnosis: Other specified joint disorders, left knee[ICD10: M25.862] Diagnosis: Cellulitis of left lower limb[ICD10: L03.116] Diagnosis: Other fatigue[ICD10: R53.83] Diagnosis: Hyperlipidemia, unspecified[ICD10: E78.5] Stephanie BARAKAT DO [facility] CPT-4: 67599 07/01/2015 OFFICE/OUTPATIENT VISIT EST Diagnosis: Pain in left knee[ICD10: M25.562] Diagnosis: Cellulitis of left lower limb[ICD10: L03.116] Diagnosis: Other specified joint disorders, left knee[ICD10: M25.862] Stephanie VanBecelaere ILTA S. ORENDER DO [facility] CPT-4: 55826 06/28/2015 OFFICE/OUTPATIENT VISIT EST Diagnosis: PREPATELLAR BURSITIS[ICD9: 726.65] Diagnosis: Cellulitis of knee, left[ICD9: 682.6] Stephanie BARAKAT DO [facility] CPT-4: 74951 06/09/2015 ([id number]) OFFICE/OUTPATIENT VISIT EST Diagnosis: PREPATELLAR BURSITIS[ICD9: 726.65] Diagnosis: Cellulitis of knee, left[ICD9: 682.6] Lita BARAKAT DO [facility] CPT-4: 28694 06/07/2015 OFFICE/OUTPATIENT VISIT EST Diagnosis: Cellulitis of knee, left[ICD9: 682.6] Stephanie BARAKAT DO [facility] CPT-4: 96057 06/03/2015 ([id number]) OFFICE/OUTPATIENT VISIT EST Diagnosis: DM W/O COMPLICATION TYPE II, UNCONTROLLED[ICD9: 250.02] Diagnosis: COPD[ICD9: 496] Lita BARAKAT [facility] CPT- 4: 75082 06/01/2015 ([id number]) OFFICE/OUTPATIENT VISIT EST Diagnosis: COPD[ICD9: 496] Diagnosis: DYSPNEA[ICD9: 786.09] Diagnosis: DM W/O COMPLICATION TYPE II, UNCONTROLLED[ICD9: 250.02] Diagnosis: Actinic keratosis[ICD9: 702.0] Lita BARAKAT [facility] CPT-4: 15836 02/25/2015 ([id number]) OFFICE/OUTPATIENT VISIT EST Diagnosis: ASTHMA NOS[ICD9: 493.90] Diagnosis: COPD[ICD9: 496] Diagnosis: DM W/O COMPLICATION TYPE II, UNCONTROLLED[ICD9: 250.02] Lita BARAKAT DO [facility] CPT-4: 07823 10/27/2014 OFFICE/OUTPATIENT VISIT EST Diagnosis: DYSPNEA[ICD9: 786.09] Diagnosis: COPD[ICD9: 496] Lita BARAKAT [facility] CPT- 4: 65375 10/06/2014 ([id number]) OFFICE/OUTPATIENT VISIT EST Diagnosis: PNEUMONIA, ORGANISM[ICD9: 486] Diagnosis: COPD[ICD9: 496] Diagnosis: DYSPNEA[ICD9: 786.09] Lita BARAKAT DO [facility] CPT-4: 59435 09/21/2014 OFFICE/OUTPATIENT VISIT EST Diagnosis: PNEUMONIA, ORGANISM[ICD9: 486] Diagnosis: DYSPNEA[ICD9: 786.09] Diagnosis: COUGH[ICD9: 786.2] Stephanie BARAKAT DO [facility] CPT-4: 94052 09/08/2014 OFFICE/OUTPATIENT VISIT EST Diagnosis: COPD with exacerbation[ICD9: 491.21] Diagnosis: COUGH[ICD9: 786.2] Diagnosis: DYSPNEA[ICD9: 786.09] Stephanie BARAKAT DO [facility] CPT-4: 61122 09/02/2014 ([id number]) OFFICE/OUTPATIENT VISIT EST Diagnosis: DM W/O COMPLICATION TYPE II, UNCONTROLLED[ICD9: 250.02] Lita BARAKAT [facility] CPT-4: 46558 08/27/2014 ([id number]) OFFICE/OUTPATIENT VISIT EST Diagnosis: DM W/O COMPLICATION TYPE II, UNCONTROLLED[ICD9: 250.02] Diagnosis: HYPERLIPIDEMIA NEC/NOS[ICD9: 272.4] Diagnosis: HYPERTENSION[ICD9: 401.9] Diagnosis: COPD[ICD9: 496] Diagnosis: FLU VACCINE[ICD10: Z23] Lita PABLO [facility] CPT-4: 49381 08/05/2014 ([id number]) OFFICE/OUTPATIENT VISIT EST Diagnosis: COPD[ICD9: 496] Diagnosis: Lumbar degenerative disc disease[ICD9: 722.52] Lita BARAKAT DO [facility] CPT-4: 39556 05/05/2014 OFFICE/OUTPATIENT VISIT EST Diagnosis: DYSPNEA[ICD9: 786.09] Diagnosis: COPD[ICD9: 496] Lita BARAKAT [facility] CPT- 4: 48645 03/24/2014 ([id number]) OFFICE/OUTPATIENT VISIT EST Diagnosis: COPD[ICD9: 496] Diagnosis: DYSPNEA[ICD9: 786.09] Lita [facility] CPT-4: 58851 03/10/2014 OFFICE/OUTPATIENT VISIT EST Diagnosis: Subacromial bursitis[ICD9: 726.19] Diagnosis: Chronic low back pain[ICD9: 724.2] Diagnosis: Lumbar degenerative disc disease[ICD9: 722.52] Lita ALYLINE DonovanFerdinand [facility] CPT-4: 42880 12/16/2013 ([id number]) OFFICE/OUTPATIENT VISIT EST Diagnosis: PHARYNGITIS, ACUTE[ICD9: 462] Diagnosis: COPD[ICD9: 496] Lita ALYLINE DonovanFerdinand [facility] CPT- 4: 88273 10/09/2013 OFFICE/OUTPATIENT VISIT EST Diagnosis: COPD[ICD9: 496] Diagnosis: Acute exacerbation of chronic obstructive pulmonary disease (COPD)[ICD9: 491.21] Ruchi Buchanan LITA DonovanFerdinand [facility] CPT-4: 95163 09/18/2013 ([id number]) OFFICE/OUTPATIENT VISIT EST Diagnosis: PNEUMONIA, ORGANISM[ICD9: 486] Diagnosis: DM W/O COMPLICATION TYPE II[ICD9: 250.00] Lita ALYLINE DonovanFerdinand [facility] CPT-4: 06882 08/13/2013 ([id number]) OFFICE/OUTPATIENT VISIT EST Diagnosis: DM W/O COMPLICATION TYPE II, UNCONTROLLED[ICD9: 250.02] Diagnosis: HYPERLIPIDEMIA NEC/NOS[ICD9: 272.4] Diagnosis: HYPERTENSION[ICD9: 401.9] Diagnosis: DYSPNEA[ICD9: 786.09] Diagnosis: Family history of CABG[ICD9: V17.49] Litacarol ALY JESSICA Ashley [facility] CPT-4: 24288 07/16/2013 ([id number]) OFFICE/OUTPATIENT VISIT EST Diagnosis: DM W/O COMPLICATION TYPE II, UNCONTROLLED[ICD9: 250.02] Diagnosis: HYPERLIPIDEMIA NEC/NOS[ICD9: 272.4] Diagnosis: HYPERTENSION[ICD9: 401.9] Lita [facility]val [facility] CPT-4: 15398 06/25/2013 OFFICE/OUTPATIENT VISIT EST Diagnosis: COUGH[ICD9: 786.2] Diagnosis: COPD[ICD9: 496] Kimberly BARAKAT [facility] CPT- 4: 63987 04/09/2013 ([id number]) OFFICE/OUTPATIENT VISIT EST Diagnosis: Muscle spasm[ICD9: 728.85] Diagnosis: ARTHRALGIA-MULTIPLE SITES[ICD9: 719.49] Lita Yuval [facility] CPT-4: 17464 02/11/2013 OFFICE/OUTPATIENT VISIT EST Diagnosis: COPD with exacerbation[ICD9: 491.21] Diagnosis: BRONCHITIS, ACUTE[ICD9: 466.0] Ruchi Buchanan LITA [facility] CPT-4: 28561 01/31/2013 OFFICE/OUTPATIENT VISIT EST Diagnosis: COUGH[ICD9: 786.2] Diagnosis: PHARYNGITIS, ACUTE[ICD9: 462] Diagnosis: SINUSITIS, ACUTE[ICD9: 461.9] Lita [facility] CPT-4: 11777 01/20/2013 OFFICE/OUTPATIENT VISIT EST Diagnosis: DIZZINESS/VERTIGO[ICD9: 780.4] iLta [facility] CPT-[facility]: 49899 12/19/2012 OFFICE/OUTPATIENT VISIT EST Diagnosis: Skin lesion of left arm[ICD9: 709.9] Diagnosis: Otitis externa[ICD9: 380.10] Diagnosis: PHARYNGITIS, ACUTE[ICD9: 462] Lita Yuval [facility] CPT-4: 99464 10/21/2012 ([id number]) OFFICE/OUTPATIENT VISIT EST Diagnosis: DM W/O COMPLICATION TYPE II, UNCONTROLLED[ICD9: 250.02] Diagnosis: HYPERLIPIDEMIA NEC/NOS[ICD9: 272.4] Diagnosis: HYPERTENSION[ICD9: 401.9] Lita [facility]val [facility] CPT-4: 62301 09/19/2012 ([id number]) OFFICE/OUTPATIENT VISIT EST Diagnosis: DM W/O COMPLICATION TYPE II, UNCONTROLLED[ICD9: 250.02] Diagnosis: HYPERLIPIDEMIA NEC/NOS[ICD9: 272.4] Diagnosis: COPD[ICD9: 496] Lita BARAKAT DO [facility] CPT- 4: 70086 09/18/2012 ([id number]) OFFICE/OUTPATIENT VISIT EST Diagnosis: BRONCHITIS, ACUTE[ICD9: 466.0] Diagnosis: SINUSITIS, ACUTE[ICD9: 461.9] Lita BARAKAT DO [facility] CPT-4: 35809 08/28/2012 ([id number]) OFFICE/OUTPATIENT VISIT EST Diagnosis: COPD[ICD9: 496] Diagnosis: DYSPNEA[ICD9: 786.09] Diagnosis: VAC STREP PNEUMONIAE-FLU (Medicare)[ICD9: V06.6] Lita BARAKAT DO [facility] CPT-4: 78296 07/10/2012 ([id number]) OFFICE/OUTPATIENT VISIT EST Diagnosis: DM W/O COMPLICATION TYPE II, UNCONTROLLED[ICD9: 250.02] Diagnosis: HYPERTENSION[ICD9: 401.9] Diagnosis: HYPERLIPIDEMIA NEC/NOS[ICD9: 272.4] Diagnosis: DIZZINESS/VERTIGO[ICD9: 780.4] Lita BARAKAT Gamersband [facility] CPT-4: 21859 05/09/2012 ([id number]) OFFICE/OUTPATIENT VISIT EST Diagnosis: DM W/O COMPLICATION TYPE II, UNCONTROLLED[ICD9: 250.02] Diagnosis: HYPERLIPIDEMIA NEC/NOS[ICD9: 272.4] Diagnosis: HYPERTENSION[ICD9: 401.9] Diagnosis: MALAISE AND FATIGUE[ICD9: 780.79] Lita BARAKAT Gamersband [facility] CPT-4: 97822 05/06/2012 OFFICE/OUTPATIENT VISIT EST Diagnosis: COUGH[ICD9: 786.2] Diagnosis: SINUSITIS, ACUTE[ICD9: 461.9] Diagnosis: PHARYNGITIS, ACUTE[ICD9: 462] Lita BARAKAT DO [facility] CPT-4: 61130 10/02/2011 OFFICE/OUTPATIENT VISIT EST Diagnosis: DM W/O COMPLICATION TYPE II, UNCONTROLLED[ICD9: 250.02] Diagnosis: HYPERLIPIDEMIA NEC/NOS[ICD9: 272.4] Diagnosis: HYPERTENSION[ICD9: 401.9] Diagnosis: COPD[ICD9: 496] Lita VALERIO CPT- 4: 57091 08/07/2011 OFFICE/OUTPATIENT VISIT EST Lita [facility] CPT- 4: 04373 04/03/2011 ([id number]) OFFICE/OUTPATIENT VISIT EST Lita PALACIOS SF[facility] CPT-4: 68465 01/18/2011 ([id number]) OFFICE/OUTPATIENT VISIT EST Lita PALACIOS SFerdinand [facility] CPT-4: 08715 12/19/2010 ([id number]) OFFICE/OUTPATIENT VISIT, EST Lita CASTELLANOSNDER DO [facility] CPT-4: 76068 04/05/2010 ([id number]) OFFICE/OUTPATIENT VISIT, EST Lita HOLMAN SFerdinand [facility] CPT-4: 42046 01/13/2010 ([id number]) OFFICE/OUTPATIENT VISIT, EST Lita HOLMAN SFerdinand [facility] CPT-4: 81800 12/23/2009 ([id number]) OFFICE/OUTPATIENT VISIT, EST Lita HOLMAN S. GIANNINDER DO [facility] CPT-4: 54823 12/22/2009 ([id number]) OFFICE/OUTPATIENT VISIT, EST Lita HOLMAN SFerdinand [facility] CPT-4: 58614 12/13/2009 Plan of Care Planned Activity Notes [...] : J44.1 12/25/2019 Appointment: Lita Barakat WPtel: [address] [place], [place] [phone] FOLLOW UP 12/25/2019 Patient Education: prednisone- [employer] Coupon [id number] https://www.okay.com/UpCompany/resources/getResource/61/ai3tx1c3-9b3w-493t-94 Completed 12/25/2019 Visit Diagnosis Plan: Pain in [...] : Z91.19 12/22/2019 Appointment: Lita Barakat WPtel: [facility] [id number] [place] 12/22/2019 Patient Education: baclofen- [employer] Coupon [id number] https://www.okay.com/UpCompany/resources/getResource/61/sd0ly915-gzc2-5ux0-84 Completed 12/22/2019 Visit Diagnosis Plan: Chronic airway [...] : J96.12 11/12/2019 Appointment: Lita Barakat WPtel: [address] [place], [place] [id number] ACUTE ILLNESS 11/12/2019 Care Plan: Referral Order SNOMED-CT : 30 [id number] Pending 11/12/2019 Care Plan: Referral Order SNOMED-CT : 30 8156194 Pending 11/12/2019 Visit Diagnosis Plan: Chronic obstructive pulmonary di sease, unspecified Discussion: Start Pulmonary Rehab Reviewed results of CT of chest ordered by pulmonology Follow Up: 3 months ICD-9 : 496 ICD-10 : J44.9 09/11/2019 Visit Diagnosis Plan: Right thyroid nodule Discussion: Check thyroid US ICD-9 : 241.0 ICD-10 : E04.1 09/11/2019 Appointment: Lita Barakat WPtel: [address] [place], [place] [phone] MEDICATION REVIEW 09/11/2019 Care Plan: US EXAM OF HEAD AND NECK LOIN C : 18364-6 Pending 09/11/2019 Visit Diagnosis Plan: Chronic bronchitis Discussion: A ugmentin for 10 days ICD-9 : 491.9 ICD-10 : J42 08/07/2019 Appointment: Lita Barakat WPtel: [address] [place], [place] [phone] ACUTE ILLNESS 08/07/2019 Visit Diagnosis Plan: Chronic [...] : J44.1 07/14/2019 Appointment: Autumn Oneil [address] ACUTE ILLNESS 07/14/2019 Visit Diagnosis Plan: Primary [...] : K31.89 07/01/2019 Appointment: Lita Barakat WPtel: [address] [place] [address] FOLLOW UP 07/01/2019 Care Plan: CT ABDOMEN W/O DYE LOINC : 36 103-0 Pending 07/01/2019 Care Plan: Referral Order SNOMED-CT : 30 [id number] Pending 07/01/2019 Visit Diagnosis Plan: Epigastric pain [...] : R63.4 06/24/2019 Appointment: Lita Barakat WPtel: [address] [place] [address] ACUTE ILLNESS 06/24/2019 Patient Education: Seroquel- [employer] Coupon [id number] https://www.okay.com/[employer]/resources/getResource/61/[email or web address]-s488-89g4-93 Completed 06/24/2019 Patient Education: ondansetron HCl- [employer] Coupon [id number] https://www.UpCompany.com/samplemd/resources/getResource/61/0099629h-7640-96g6-c6 Completed 06/24/2019 Care Plan: US EXAM ABDOM COMPLETE LOINC : 61572-8 Pending 06/24/2019 Visit Diagnosis Plan: Diplopia Discussion: [...] ICD-10 : J44.9 06/17/2019 Appointment: Lita Barakattel: [address] [place], [place] [phone] [place] FOLLOW UP 06/17/2019 Appointment: Lita Barakat WPtel: [address] [place], [place] [phone] US INJECTION 06/10/2019 Appointment: Lita Barakat WPtel: [address] [place], [place] [phone] US INJECTION 06/02/2019 Appointment: Lita Barakat WPtel: [address] [place], [place] [phone] US INJECTION 05/27/2019 Appointment: Lita Barakat WPtel: [address] [place], [place] [id number] [place] INJECTION 05/12/2019 Visit Diagnosis Plan: Vitamin [...] : D64.9 05/08/2019 Appointment: Lita Barakat WPtel: [address] [place], [place] [id number] FOLLOW UP 05/08/2019 Visit Diagnosis Plan: Pain in right knee Discussion: S top tramadol and tylenol q HS Trial of Hydrocodone 10/325mg po q HS Recheck 1month ICD-9 : 719.46 ICD-10 : M25.561 04/07/2019 Appointment: Lita Barakat WPtel: [address] [place], [place] [id number] Hospital Follow Up 04/07/2019 Visit Diagnosis Plan: [...] : 300.02 ICD-10 : F41.1 03/24/2019 Appointment: Thad Autumn Yu [address] [place] [address] ACUTE ILLNESS 03/24/2019 Patient Education: hydroxyzine HCl- [employer] [id number] Completed 03/24/2019 Patient Education: pantoprazole- [employer] [id number] Completed 03/24/2019 Visit Diagnosis Plan: Dizziness and [...] fice. patient's portable oxygen tank was empty. [id number] patient on importance of monitoring oxygen tank to be sure it does not become empty when he's out of the house. patient states he has an extra one in the car that he will use. ICD-9 : 491.21 ICD-10 : J44.1 03/21/2019 Appointment: Autumn Oneil [address] [place] [address] ACUTE ILLNESS 03/21/2019 Patient Education: ipratropium-albuterol- [employer] C taj [id number] https://www.UpCompany.com/samplemd/resources/getResource/61/e0sf90g0-j1a0-3t0e-17 Completed 03/21/2019 Visit Diagnosis Plan: Chronic obstructiv e pulmonary disease with (acute) exacerbation Discussion: Solumedrol now Use SVNs with duoneb at least q4hrs Patient is supposed to be on continuous oxygen but not wearing ICD-9 : 491.21 ICD-10 : J44.1 03/13/2019 Visit Diagnosis Plan: Candidal stomatitis Discussion: Diflucan and Nystatin susp ICD-9 : 112.0 ICD-10 : B37.0 03/13/2019 Appointment: Lita Barakat WPtel: [address] [place] [address] ACUTE ILLNESS 03/13/2019 Patient Education: losartan- [employer] Coupon [id number] Completed 03/13/2019 Patient Education: nystatin- [employer] Coupon [id number] Completed 03/13/2019 Patient Education: fluconazole- [employer] Coupon [id number] Completed 03/13/2019 Visit Diagnosis Plan: Restless legs [...] : J44.0 03/10/2019 Appointment: Lita Barakat WPtel: [address] [place] [address] ACUTE ILLNESS 03/10/2019 Visit Diagnosis Plan: Restless legs syndrome Discussio n: Stop requip Increase sinemet to TID Add children's chewable MV with iron BID Add magnesium oxide 400mg daily Add Lyrica 75mg po q HS Stop trazadone Recheck 3 weeks Follow Up: 3 weeks ICD-9 : 333.94 ICD-10 : G25.81 02/26/2019 Appointment: Lita Barakat WPtel: [address] [place] [address] ACUTE ILLNESS 02/26/2019 Visit Diagnosis Plan: Primary insomnia Discussion: Tri al of doxepin 10-20mg po q HS prn sleep ICD-9 : 780.52 ICD-10 : F51.01 02/13/2019 Visit Diagnosis Plan: Chronic obstructive pulmonary di sease, unspecified Discussion: Stable Discussed trip to [place]--will get oxygen setup through [facility] ICD-9 : 496 ICD-10 : J44.9 02/13/2019 Appointment: Lita Barakat WPtel: [address] [place], [place] [id number] FOLLOW UP 02/13/2019 Patient Education: doxepin- [employer] Coupon [id number] https://www.okay.com/samplemd/resources/getResource/61/99n4s92n-30hn-345l-6y Completed 02/13/2019 Appointment: Lita Barakat WPtel: [address] [place] [address] [place] CANCELED 01/20/2019 Visit Diagnosis Plan: Chronic obstructive pulmonary di marcello, unspecified Discussion: Stable on oxygen Given Symbicort samples Follow Up: 1 months ICD-9 : 496 ICD-10 : J44.9 01/14/2019 Appointment: Lita Barakat WPtel: [address] [place], [place] [address] Hospital Follow Up 01/14/2019 Visit [...] : J44.1 12/25/2018 Appointment: Lita Barakat WPtel: [address] [place], [place] [id number] Hospital Follow Up 12/25/2018 Appointment: Lita Barakat WPtel: [address] [place], [place] [phone] [place] CANCELED 12/23/2018 Appointment: Ines Banerjee [id number] 12/20/2018 Visit Diagnosis Plan: Essential (primary) [...] ICD-10 : J01.01 12/09/2018 Appointment: Ines Banerjee [id number] LAB 12/09/2018 Patient Education: cefdinir- [employer] Coupon [id number] https://www.okay.com/UpCompany/resources/getResource/61/a7067g2u-72oi-4692-29 Completed 12/09/2018 Visit Diagnosis Plan: Candidal stomatitis Discussion: Diflucan for 5 days Hold atorvastatin while taking ICD-9 : 112.0 ICD-10 : B37.0 12/05/2018 Appointment: Lita Barakat WPtel: [address] [place] [address] ACUTE ILLNESS 12/05/2018 Patient Education: fluconazole- [employer] Coupon [id number] https://www.okay.com/samplemd/resources/getResource/61/7u476p02-8ka5-44i1-05 Completed 12/05/2018 Appointment: Lita Barakat WPtel: [address] [place] [address] NO SHOW 11/11/2018 Visit Plan: Saline nasal flushes prn. Ty lenol/Motrin prn headache. Notify if persists/symptoms worsening. 10/23/2018 Visit Diagnosis Plan: Acute recurrent sinusitis, unspe cified Discussion: Prednisone ICD-9 : 461.9 ICD-10 : J01.91 10/23/2018 Visit NOS Plan: Plan Notes: Saline nasal flu shes prn. Tyle... 10/23/2018 Visit Diagnosis Plan: Pain in right knee Discussion: Donovan aliciaing ortho tomorrow for injection Tramadol refilled ICD-9 : 719.46 ICD-10 : M25.561 10/23/2018 Appointment: Lita Barakat WPtel: [address] [place], [place] [phone] ACUTE ILLNESS 10/23/2018 Patient Education: prednisone- [employer] Coupon [id number] https://www.UpCompany.[employer]/UpCompany/resources/getResource/61/lm0lg098-qlsa-6976-51 Completed 10/23/2018 Care Plan: A1C HPLC LOINC : 24671-2 Pending 09/10/2018 Care Plan: COMPREHEN METABOLIC [place]EL [place] : 315[address]-4 Pending 09/10/2018 Care Plan: CBC Pending 09/10/2018 [...] : C44.41 08/21/2018 Appointment: Lita Barakat WPtel: [address] [place], [place] [phone] ACUTE ILLNESS 08/21/2018 Care Plan: Referral Order SNOMED-CT : 30 8397438 Pending 08/21/2018 Visit Diagnosis Plan: Chronic obstructiv [...] : G25.81 08/07/2018 Appointment: Lita Barakat WPtel: [address] [place] [address] FOLLOW UP 08/07/2018 Appointment: Lita Barakat WPtel: [address] [place], [place] [id number] 07/18/18 1210---see note in chart (km) CANCELED 07/18/2018 Visit Diagnosis Plan: Chronic obstructiv e pulmonary disease with acute lower respiratory infection Discussion: Solumedrol 125mg IM Change t o trelagy 1 inhalation daily Use SVNs with albuterol q4hrs To ER this weekend if worsens Monitor weight/swelling ICD-9 : 496 ICD-10 : J44.0 05/23/2018 Appointment: Lita Barakat WPtel: [address] [place] [address] ACUTE ILLNESS 05/23/2018 Patient Education: Patient Medication Summary Completed 05/23/2018 Visit Diagnosis Plan: Candidal stomatitis Discussion: Diflucan for 7 more days--hold atrovastatin while taking ICD-9 : 112.0 ICD-10 : B37.0 05/02/2018 Appointment: Lita Barakat WPtel: [address] [place] [address] FOLLOW UP 05/02/2018 Patient Education: Patient Medication [...] ICD-10 : R33.8 04/29/2018 Appointment: Autumn Oneil [address] [place], [place] [address] ACUTE ILLNESS 04/29/2018 Patient Education: Patient [...] J44.0 04/22/2018 Appointment: Lita Barakat WPtel: [facility] [facility] [place] [facility] Follow Up 04/22/2018 Patient Education: Patient Medication Summary Completed 04/22/2018 Appointment: Lita Barakat WPtel: [facility] [facility] 04/09/18 1640---see message in chart from today [...] : M17.11 01/28/2018 Appointment: Lita Barakat WPtel: [address] [place] [address] ACUTE ILLNESS 01/28/2018 Patient Education: Patient Medication Summary Completed 01/28/2018 Care Plan: Referral Order SNOMED-CT : 30 8243563 Pending 01/28/2018 Care Plan: Referral Order SNOMED-CT : 30 7604236 Pending 01/28/2018 Visit Diagnosis Plan: Functional dyspepsia Discussion: Protonix Call in 1 week on how doing ICD-9 : 536.8 ICD-10 : K30 01/23/2018 Visit Diagnosis Plan: Pain in right knee Discussion: T opical voltaren gel QID ICD-9 : 719.46 ICD-10 : M25.561 01/23/2018 Appointment: Lita Barakat WPtel: [address] [place] [address] ACUTE ILLNESS 01/23/2018 Patient Education: Patient Medication [...] : J44.0 01/02/2018 Appointment: Lita Barakat WPtel: [address] [place] [address] ACUTE ILLNESS 01/02/2018 Patient Education: Patient Medication [...] ICD-10 : J44.1 12/28/2017 Appointment: Autumn Oneil [address] [place] [address] Consult 12/28/2017 Patient Education: Patient Medication Summary [...] : J20.9 12/21/2017 Appointment: Autumn Oneil [address] [facility] ACUTE ILLNESS 12/21/2017 Patient Education: Patient Medication Summary Completed 12/21/2017 Care Plan: X-RAY EXAM OF KNEE 1 OR 2 right [place] NC : 69[address]-1 Pending 12/18/2017 Visit Diagnosis Plan: Chronic obstructiv [...] ICD-10 : M25.561 12/17/2017 Appointment: Autumn Oneil [address] [place] [address] ACUTE ILLNESS 12/17/2017 Patient Education: Patient Medication Summary Completed 12/17/2017 Visit Diagnosis Plan: Unilateral primary osteoarthriti s, right knee Discussion: Right knee injection as above Warned of elevated BS after injection ICD-9 : 715.96 ICD-10 : M17.11 12/11/2017 Appointment: Lita Barakat WPtel: [address] [place] [address] OFFICE SURGERY 12/11/2017 Patient Education: Patient Medication Summary Completed 12/11/2017 Visit Diagnosis Plan: Actinic keratosis Discussion: Cr yotherapy as above If persists then will need excision by Dr. Swanson ICD-9 : 702.0 ICD-10 : L57.0 11/07/2017 Appointment: Lita Barakat WPtel: [address] [place] [address] ACUTE ILLNESS 11/07/2017 Patient Education: Patient Medication [...] S61.411S 10/17/2017 Appointment: Lita Barakat WPtel: [address] ER Follow UP 10/17/2017 Patient Education: Patient Medication Summary Completed 10/17/2017 Appointment: Lita Barakat WPtel: [address] [facility] [place] Consult 08/15/2017 Visit Diagnosis Plan: [...] ICD-10 : J44.0 08/02/2017 Appointment: Autumn Oneil [address] [place] [address] ACUTE ILLNESS 08/02/2017 Patient Education: Patient Medication Summary Completed 08/02/2017 Patient Education: Patient Medication Summary Completed 07/31/2017 Care Plan: CHEST X-RAY 2VW FRONTAL&LATL LOINC : 73382-1 Pending 07/31/2017 Appointment: Lita Barakat WPtel: [facility]1 [facility]6676[facility] INJECTION 07/24/2017 Patient Education: Patient Medication [...] : J44.1 07/02/2017 Appointment: Autumn Oneil [address] ACUTE ILLNESS 07/02/2017 Patient Education: Patient Medication Summary Completed 07/02/2017 Care Plan: CHEST X-RAY 2VW FRONTAL&LATL LOINC : 63050-0 Pending 07/02/2017 Care Plan: MRI LUMBAR SPINE W/O DYE LOIN C : 80255-7 Pending 05/30/2017 Visit Plan: MRI at [facility] [place] codone 5.325 1 po q 4-6 hours prn pain #40 NR and Cyclobenzaprine (ERx) Continue warm packs for pain RTC if no improvement 05/29/2017 Appointment: Ruchi Buchanan WPtel: [address] [place] [address] ACUTE ILLNESS 05/29/2017 Patient Education: Patient Medication Summary Completed 05/29/2017 Appointment: Lita Barakat WPtel: [address] [place] [address] [place] CANCELED 05/24/2017 Patient Education: Patient Medication Summary Completed 05/22/2017 Care Plan: X-RAY EXAM L-S SPINE 2/3 VWS LOINC : 42523-8 Pending 05/22/2017 Appointment: Lita Barakat WPtel: [address] [place] [address] LAB 04/17/2017 Patient Education: Patient Medication Summary Completed 04/17/2017 Referral: Demetrius Benjamin WPtel: [address] [place] [address] Referral Initiated 04/05/2017 Appointment: Lita Barakat WPtel: [address] [place], [place] [phone] 03/30/17 0930---spoke with patient about ointments (km Consult 03/30/2017 Appointment: Lita Barakat WPtel: [address] [place], [place] [address] 03/29/17 1320---spoke with patient, requip refilled wasn't received at pharmacy so verbally called (km) Consult 03/29/2017 Patient Education: Patient Medication Summary Completed 03/01/2017 Care Plan: CHEST X-RAY 2VW FRONTAL&LATL LOINC : 73978-2 Pending 03/01/2017 Visit Diagnosis Plan: Bursitis of left shoulder Discus yesi: Injection as above ICD-9 : 726.10 ICD-10 : M75.52 02/01/2017 Appointment: Lita Barakat WPtel: [address] [place] [address] 01/31 confirmed ~sl WORK IN 02/01/2017 Patient Education: Patient Medication Summary Completed 02/01/2017 Care Plan: X-RAY EXAM OF SHOULDER LOINC : 89380-9 Pending 01/30/2017 Visit Plan: May take OTC Tylenol/Ibuprof en as directed XRay at [facility] of left shoulder Tramadol 50mg 1 po q 6 hours prn pain called to [facility]. Sedation warning given (no driving, etc) RTC if no improvement 01/29/2017 Appointment: Ruchi Buchanan WPtel: [address] [place] [address] ACUTE ILLNESS 01/29/2017 Appointment: Ruchi Buchanan WPtel: [address] [place] [address] ACUTE ILLNESS 01/29/2017 Patient Education: Patient Medication Summary Completed 01/29/2017 Appointment: Lita Barakat WPtel: [address] [place], [place] [address] [place] Consult 01/10/2017 Appointment: Lita Barakat WPtel: [address] [place], [place] [phone] 12/27/2016 Patient Education: Patient Medication Summary Completed [...] : R53.83 12/21/2016 Appointment: Lita Barakat WPtel: [address] [place] [address] ACUTE ILLNESS 12/21/2016 Patient Education: Patient Medication Summary Completed 12/21/2016 Appointment: Lita Barakat WPtel: [address] [place], [place] [phone] [place] CANCELED 12/18/2016 Visit Diagnosis Plan: Restless [...] : D64.9 12/14/2016 Appointment: Lita Barakat WPtel: [address] [place] [address] 12/13 confirmed ~sl WORK IN 12/14/2016 Appointment: Lita Barakat WPtel: [address] [place], [place] [phone] US CANCELED 12/14/2016 Patient Education: Patient Medication Summary Completed 12/14/2016 Appointment: Lita Barakat WPtel: [address] [place], [place] [phone] [place] LAB 12/12/2016 Patient Education: Patient Medication Summary Completed 12/12/2016 Appointment: Lita Barakat WPtel: [address] [place], [place] [phone] in ER this weekend--called for reports Consult 12/11/2016 Appointment: Lita Barakat WPtel: [address] [place], [place] [address] [place] CANCELED 12/04/2016 Visit Diagnosis Plan: Pneumonia, [...] ICD-10 : G25.81 11/14/2016 Appointment: Magda Toth [address] [place], [place] [id number] MEDICATION REVIEW 11/14/2016 Patient Education: Patient Medication Summary Completed 11/14/2016 Appointment: Lita Barakattel: [address] [place], [place] [phone] [place] RESCHEDULED 11/02/2016 Visit Diagnosis Plan: Candidal stomatitis Discussion: Diflucan and Nystatin Hold atorvastatin while taking diflucan ICD-9 : 112.0 ICD-10 : B37.0 10/31/2016 Appointment: Lita Barakat WPtel: [address] [place], [place] [phone] ACUTE ILLNESS 10/31/2016 Patient Education: Patient Medication Summary Completed 10/31/2016 Appointment: Lita Barakat WPtel: [address] [place], [place] [phone] [place] Consult 10/23/2016 Appointment: Lita Barakat WPtel: [address] [place], [place] [phone] [place] CANCELED 10/18/2016 Visit Plan: Rx as above Wear O2 at all t imes as instructed by Dr Chacon Continue breathing treatments Supportive care otherwise reviewed Follow up ingrid if not improving 10/03/2016 Appointment: Lita Barakat WPtel: [address] [place], [place] [phone] [place] CANCELED 10/03/2016 Appointment: Magda Toth [address] [place] [address] ACUTE ILLNESS 10/03/2016 Patient Education: Patient Medication Summary Completed 10/03/2016 Visit Plan: Titrate requip to 1.5mg x 1 week Call if not helpful and will increase to 2mg qHS NO MORE nyquil at bedtime - discussed potential effects of decongestants on heart, oversedating himself, etc Will increase requip, then amitriptyline if needed to desired effect 09/04/2016 Appointment: Magda Toth [address] [place] [address] ACUTE ILLNESS 09/04/2016 Patient Education: Patient Medication Summary Completed 09/04/2016 Visit Plan: Stop requip and try elavil C ryotherapy as above See ENT for removal of right ear lesion 08/22/2016 Appointment: Lita Barakat WPtel: [address] [place] [address] ACUTE ILLNESS 08/22/2016 Patient Education: Patient Medication Summary Completed 08/22/2016 Visit Plan: Trial of requip 1mg q HS Res tart zoloft Recheck 1month 08/10/2016 Appointment: Lita Barakat WPtel: [address] [place] [address] ACUTE ILLNESS 08/10/2016 Patient Education: Patient Medication Summary Completed 08/10/2016 Visit Plan: Stop HCTZ Flagyl for diarrhe a Hydrate Discussed meds for restless legs Zofran prn Nausea 07/06/2016 Appointment: Lita Barakat WPtel: [address] [place] [address] 07/05 confirmed~sl Hospital Follow Up 07/06/2016 Patient Education: Patient Medication Summary Completed 07/06/2016 Visit Plan: Reviewed with Dr Yuval Palacios sidering his recent history, instructed him to go straight to the ER called to notify her so she can meet him there 06/22/2016 Appointment: Magda Toth [address] [place], [place] [id number] ACUTE ILLNESS 06/22/2016 Patient Education: Patient Medication Summary Completed 06/22/2016 Visit Plan: Continue current meds Prevna r 13 and High Dose Flu given 06/13/2016 Appointment: Lita Barakat WPtel: [address] [place] [address] 06/13 confirmed~ WORK IN 06/13/2016 Patient Education: Patient Medication Summary Completed 06/13/2016 Appointment: Lita Barakat WPtel: [address] [place] [address] just went over current medications CANCELED 06/08/2016 Visit Plan: Reviewed POC with Dr Barakat Stat cbc, cmp, d dimer, troponin, bnp, ekg, cxr If any worsening of symptoms while awaiting results, patient instructed to go to ER or call 911 06/01/2016 Appointment: Magda Toth [address] [place], [place] [id number] ACUTE ILLNESS 06/01/2016 Patient Education: Patient Medication Summary Completed 06/01/2016 Referral: José Miguel Swanson WPtel: [address] [place] [address] 04/[address] swanson's office, patient is [...] and treatment 04/26/2016 Appointment: Magda Toth Lian[facility]6676[facility] ACUTE ILLNESS 04/26/2016 Patient Education: Patient Medication Summary Completed 04/26/2016 Care Plan: Referral Order SNOMED-CT : 30 3900864 Pending 04/26/2016 Visit Plan: Left ear flushed after conse nt with warm water with peroxide with ear syringe Patient tolerated well Ear exam is wnl following flushing Follow up PRN 04/05/2016 Appointment: Magda Toth [address] [place], [place] [id number] ACUTE ILLNESS 04/05/2016 Patient Education: Patient Medication Summary Completed 04/05/2016 Visit Plan: Increase Levemir to 25u sc d aily Increase sertraline to 2 full tablets daily--200mg Debrox or cerumenex to bilateral ears q HS for 3 nights then flush or fwup for fushing Check lab in 2mos then fwup 04/03/2016 Appointment: Lita Barakat WPtel: [address] [place], [place] [phone] 03/31 7 lm ~sl FOLLOW UP 04/03/2016 Patient Education: Patient Medication Summary Completed 04/03/2016 Visit Plan: Patient informed of correct dosage of levemir and how to administer. Patient verbalizes understanding and will call if any questions/concerns. 10 Units of Levemir given in office SC to right lower abdom en. Patient tolerated well. Site without redness/irritation. 03/13/2016 Appointment: Lita Barakat WPtel: [address] [place], [place] [phone] SPECIAL 03/13/2016 Patient Education: Patient Medication Summary Completed 03/13/2016 Appointment: Lita Barakat WPtel: [address] [place], [place] [phone] LAB 03/06/2016 Patient Education: Patient Medication Summary Completed 03/06/2016 Visit Plan: Patient saw Dr. Chacon this week and was given prednisone taper for COPD Continue current meds Accuchecks daily Patient will return on Sunday morning for fasting lab incuding CBC, CMP, TSH, free T4, HbA1C, Lipids, Testosterone, PSA 03/02/2016 Appointment: Lita Barakat WPtel: [address] [place], [place] [phone] 03/01 confirmed ~sl FOLLOW UP 03/02/2016 Patient [...] how doing 02/17/2016 Appointment: Lita Barakat WPtel: [address] [place] [address] WORK IN 02/17/2016 Patient Education: Patient Medication Summary Completed 02/17/2016 Visit Plan: Xrays to further evaluate Alvarez spect heel spur(s) Will call with results Has had injections in the past that were helpful Dr Barakat can do them or can refer to podiatry if warranted 02/14/2016 Appointment: Magda Toth [address] [place] [address] ACUTE ILLNESS 02/14/2016 Patient Education: Patient Medication Summary Completed 02/14/2016 Visit Plan: Increase Zoloft to 150mg cooper ly 01/31/2016 Appointment: Lita Barakat WPtel: [address] [place] [address] 01/26 confirmed `sl FOLLOW UP 01/31/2016 Patient Education: Patient Medication Summary Completed 01/31/2016 Visit Plan: Decrease citalopram to 20mg q AM for 1 week then stop Start zoloft 50mg q HS for 1 week then increase to 100mg q HS 12/30/2015 Appointment: Lita Barakat WPtel: [address] [place], [place] [id number] 12/28 confirmed~sl ACUTE ILLNESS 12/30/2015 Patient Education: Patient Medication Summary Completed 12/30/2015 Visit Plan: Check Neck US 12/16/2015 Appointment: Lita Barakat WPtel: [address] [place], [place] [phone] 12/14 lm ~sl 12/15 confirmed-sp FOLLOW UP 12/16/2015 Patient Education: Patient Medication Summary Completed 12/16/2015 Care Plan: US EXAM OF HEAD AND NECK LOIN C : 41870-8 Ordered 12/16/2015 Appointment: Stephanie Rios WPtel: [address] [place], [place] [phone] [place] 12/09 confirmed-sp 12/12 lm ~sl Patient [...] PO TID 12/06/2015 Appointment: Stephanie Rios WPtel: [address] [place], [place] [address] ACUTE ILLNESS 12/06/2015 Patient Education: Patient Medication Summary Completed 12/06/2015 Referral: Lisbeth Darby WPtel: [facility] [address] 11/18/15 called luther at [place] office and confirmed time and date of appointment with patient~sl Initiated 11/18/2015 Visit Plan: Referral to Dermatology for removal of facial skin lesions Cefdinir PO bid Topical Mupirocin to skin lesions bid 11/15/2015 Appointment: Stephanie Rios WPtel: [address] [place], [place] [phone] ACUTE ILLNESS 11/15/2015 Patient Education: Patient Medication Summary Completed 11/15/2015 Visit Plan: Continue current meds Accuch ecks daily Fwup with ophthamology as scheduled Will check lab in 3mos then fwup due to recent meds that will affect blood sugar 10/05/2015 Appointment: Lita Barakat WPtel: [address] [place], [place] [phone] 10/04/15 appt confirmed cn Annual Well Visit 08/2016 Patient Education: Patient Medication Summary Completed 10/05/2015 Visit Plan: Alexis -1 sample box given Return visit in 6 weeks for fasting labs Notify for worsening symptoms such as Increased redness, swelling, pain or drainage of Rt. knee 07/22/2015 Appointment: [facility]Ptel[facility] [facility] 07/21 vm left cn FOLLOW UP 07/22/2015 Patient Education: Patient Medication Summary Completed 07/22/2015 Visit Plan: Continue to change dressing twice daily and apply Mupirocin Complete Doxycycline as directed. Follow-up for worsening symptoms, such as increased swelling, redness or pain. 07/01/2015 Appointment: Stephanie Rios WPtel: 2305 [facility] FOLLOW UP 07/01/2015 Patient Education: Patient Medication Summary Completed 07/01/2015 Visit Plan: Pressure dressing applied to draining wound left knee. Instructed to change dressing twice daily and continue Mupirocin topical Doxycycline PO bid x 10 days Wound culture obtained. Wound tissue sent to pathology Follow-up in 3 days 06/28/2015 Appointment: Stephanie Rios WPtel: [address] [place], [place] [phone] ACUTE ILLNESS 06/28/2015 Patient Education: Patient Medication Summary Completed 06/28/2015 Visit Plan: Complete antibiotics Follow- up for increased tenderness, swelling or drainage. 06/09/2015 Appointment: Stephanie Rios WPtel: [address] [place], [place] [address] 06/08/15 lm FOLLOW UP 06/09/2015 Patient Education: Patient Medication Summary Completed 06/09/2015 Visit Plan: Apply pressure dressing toda y Continue antibiotics and topical Mupirocin Follow-up in 2 days Bursa drained from open area using pressure--serosanguinous drainage 06/07/2015 Appointment: Stephanie Rios WPtel: [facility]6 [facility] 06/04/15 confirmed with patient FOLLOW UP 0 06/07/2015 Patient Education: Patient Medication Summary Completed 06/07/2015 Visit Plan: Wound culture Lt. knee Apply mupirocin to open wound bid Clindamycin 600 mg PO bid x 10 days Follow-up on Sunday06/03/2015 Appointment: Stephanie Rios WPtel: [address] [place], [place] [phone] ACUTE ILLNESS 06/03/2015 Patient Education: Patient Medication Summary Completed 06/03/2015 Visit Plan: Accuchecks daily Check CMP, HbA1C today Patient is noncompliant with meds and diet but patient says he is doing everything he is supposed to do Wants to try performomist instead of albuterol in SVN 06/01/2015 Appointment: Lita Barakat WPtel: [address] [place], [place] [phone] 05/28 appt confirmed cn FOLLOW UP 06/01/20 15 Patient Education: Patient Medication Summary Completed 06/01/2015 Visit Plan: Change Breo Ellipta to Advai r 500/50 1 p BID this next month Continue turdoza Use albuterol prn Check CMP, HbA1C today Accuchecks daily Cryotherapy as above 02/25/2015 Appointment: Lita Barakat WPtel: [address] [place], [place] [phone] 02/24 appt confirmed and explained needed payment he said ok FOLLOW UP 02/25/2015 Patient Education: Patient Medication Summary Completed 02/25/2015 Referral: Lopez Chacon [address] [facility] C&D [id number] Will put patient on cancellation list Initiated 12/08/2014 Appointment: Lita Barakat WPtel: [address] [place], [place] [phone] Hospital Follow Up 10/29/2014 Visit Plan: Finish prednisone Continue S VNs with albuterol QID See pulmonology and start Pulmonary rehab Once again discussed taking it easy this winter--that he is high risk for exacerbation 10/27/2014 Appointment: Lita Barakat WPtel: [address] [place], [place] [phone] FOLLOW UP 10/27/2014 Patient Education: Patient Medication Summary Completed 10/27/2014 Appointment: Lita Barakat WPtel: [address] [place] [address] FOLLOW UP 10/26/2014 Appointment: Stephanie Rios WPtel: [address] [place], [place] [phone] WORK IN 10/21/2014 Patient Education: Patient Medication Summary Completed 10/21/2014 Patient Education: Patient Medication Summary Completed 10/19/2014 Visit Plan: Continue oxygen and SVNS wit h duoneb Increase farxiga to 10mg daily Diflucan 100mg daily for 1week 10/06/2014 Appointment: Lita Barakat WPtel: [address] [place] [address] Moved appt time to 2:45pm FOLLOW UP 2014 Patient Education: Patient Medication Summary Completed 10/06/2014 Visit Plan: Finish omnicef Continue Breo BID and Turdoza Use SVNS with duoneb at least TID for next 2weeks then go to prn 09/21/2014 Appointment: Lita Barakat WPtel: [address] [place] [address] Follow Up 09/21/2014 Patient Education: Patient Medication Summary Completed 09/21/2014 Patient Education: [facility] - Saving Auto[employer] - Ventolin HFA - 18+ - Dynamic Portal ID Completed 09/21/2014 Appointment: Stephanie Rios WPtel: [address] [place], [place] [phone] Scheduled by 09/07 patient rescheduled to 09/08 with Stephanie. Hospital Follow Up 09/08/2014 Patient Education: Patient Medication Summary Completed 09/08/2014 Appointment: Stephanie Rios WPtel: [address] [place], [place] [phone] FOLLOW UP 09/02/2014 Patient Education: Patient Medication Summary Completed 09/02/2014 Patient Education: [employer] - Antibi otics, Analgesics 18+, Oral Contraceptives F 18+ Completed 09/02/2014 Appointment: Lita Barakat WPtel: [phone] [facility] UA 08/27/2014 Patient Education: Patient Medication Summary [...] prn sleep 08/10/2014 Appointment: Lita Barakat WPtel: [address] [place], [place] [phone] Annual Well Visit 08/10/2014 Patient Education: Patient Medication Summary Completed 08/10/2014 Appointment: Lita Barakat WPtel: [address] [place], [place] [phone] LAB 08/05/2014 Patient Education: Patient Medication Summary Completed 08/05/2014 Visit Plan: ECHO results reviewed Contin ue Breo and Turdoza Pt starts PT this afternoon for back--has had one epidural with no help in pain 05/05/2014 Appointment: Lita Barakat WPtel: [address] [place], [place] [phone] FOLLOW UP 05/05/2014 Patient Education: Patient Medication Summary Completed 05/05/2014 Visit Plan: Continue Breo and Turdoza Camargo s heart tests scheduled next week Will see surgeon for removal of skin cancer to neck after done with cardiac workup 03/24/2014 Appointment: Lita Barakat WPtel: [address] [place], [place] [phone] [place] FOLLOW UP 03/24/2014 Patient Education: Patient Medication Summary Completed 03/24/2014 Visit Plan: Proceed with cardiology eval uation as patient is has numerous risk factors for CAD Change Symbicort to Breo 1p BID and add Turdorza 1p BID Recheck in weeks Check 2-D ECHO and lexiscan 03/10/2014 Appointment: Lita Barakat WPtel: [address] [place], [place] [phone] FOLLOW UP 03/10/2014 Patient Education: Patient Medication Summary Completed 03/10/2014 Visit Plan: Shoulder injection as above Back brace to use when doing any lifting for stability 12/16/2013 Appointment: Lita Barakat WPtel: [address] [place] [address] ACUTE ILLNESS 12/16/2013 Patient Education: Patient Medication Summary Completed 12/16/2013 Visit Plan: Continue symbicort and Turdo za Salt water gargles Omnicef 300mg 2 po daily for 1wk Phenergan with codeine 10/09/2013 Appointment: Lita Barakat WPtel: [address] [place], [place] [phone] WORK IN 10/09/2013 Patient Education: Patient Medication Summary Completed 10/09/2013 Appointment: Ruchi Buchanan WPtel: [address] [place], [place] [phone] ACUTE ILLNESS 09/18/2013 Patient Education: Patient Medication Summary Completed 09/18/2013 Visit Plan: Check on repeat CXR Finish a bx Start Tradjenta to replace metformin 08/13/2013 Appointment: Lita Barakat WPtel: [address] [place], [place] [phone] 08/12 Hospital Follow Up 08/13/2013 Patient Education: Patient Medication Summary Completed 08/13/2013 Visit Plan: Admit to hospital 08/06/2013 Appointment: Stephanie Rios WPtel: [address] [place], [place] [phone] ACUTE ILLNESS 08/06/2013 Patient Education: Patient Medication Summary Completed 08/06/2013 Visit Plan: Continue current meds Contin ue accuchecks daily Proceed with stress test due to high risk for CAD 07/16/2013 Appointment: Lita Barakat WPtel: [address] [place], [place] [phone] FOLLOW UP 07/16/2013 Patient Education: Patient Medication Summary Completed 07/16/2013 Appointment: Lita Barakat WPtel: [address] [place] [address] LAB 06/25/2013 Patient Education: Patient Medication Summary Completed 06/25/2013 Visit Plan: prednisone and azithromycin. Doing CBC and mycoplasma blood draw. Will continue inhaler and albuterol breathing treatments. 04/09/2013 Appointment: Kimberly Villalba WPtel: [address] [place] [address] ACUTE ILLNESS 04/09/2013 Patient Education: Patient Medication Summary Completed 04/09/2013 Appointment: Lita Barakat WPtel: [address] [place] [address] ACUTE ILLNESS 02/11/2013 Patient Education: Patient Medication Summary Completed 02/11/2013 Appointment: Ruchi Buchanan WPtel: [address] [place] [address] ACUTE ILLNESS 01/31/2013 Patient Education: Patient Medication Summary Completed 01/31/2013 Visit Plan: Cefdinir and medrol dose pac k. Codeine/guiaf cough syrup. Has colonoscopy on Sunday. Pt. is to notify if fever occurs or symptoms worsen. Hydration and rest. 01/20/2013 Appointment: Kimberly Villalba WPtel: [address] [place] [address] ACUTE ILLNESS 01/20/2013 Patient Education: Patient Medication Summary Completed 01/20/2013 Visit Plan: Scopalamine patch and vestib ular exercises 12/19/2012 Appointment: Lita Barakat WPtel: [address] [place] [address] ACUTE ILLNESS 12/19/2012 Patient Education: Patient Medication Summary Completed 12/19/2012 Visit Plan: Dr. Swanson consult if no impr ovement in hearing. Pt. reports he will notify if no better in one week. Willam consult for skin lesion. 10/21/2012 Appointment: Kimberly Villalba WPtel: [address] [place], [place] [phone] ACUTE ILLNESS 10/21/2012 Patient Education: Patient Medication Summary Completed 10/21/2012 Appointment: Lita Barakat WPtel: [address] [place], [place] [phone] [place] LAB 09/19/2012 Patient Education: Patient Medication Summary Completed 09/19/2012 Visit Plan: Check fasting lab in AM--CMP , Lipids, HbA1C 09/18/2012 Appointment: Lita Barakat WPtel: [address] [place] [address] FOLLOW UP 09/18/2012 Patient Education: Patient Medication Summary Completed 09/18/2012 Appointment: Lita Barakat WPtel: [address] [place] [address] appt time scheduled sooner FOLLOW UP 09/05 Visit Plan: Doxycycline and Prednisone I ncrease SVN to QID Add back Symbicort 160/4.5 2 p BID 08/28/2012 Appointment: Lita Barakat WPtel: [address] [place] [address] FOLLOW UP 08/28/2012 Patient Education: Patient Medication Summary Completed 08/28/2012 Appointment: Lita Barakat WPtel: [address] [place], [place] [phone] Annual Well Visit 07/10/2012 Patient Education: Patient Medication Summary Completed 07/10/2012 Visit Plan: Finish Z-pack Add Nasonex Ad d Meclizine Vestibular exercises Continue current meds and accuchecks Check lab and fwup in 4mos 05/09/2012 Appointment: Lita Barakat WPtel: [address] [place], [place] [phone] number no longer works FOLLOW UP 2 Patient Education: Patient Medication Summary Completed 05/09/2012 Appointment: Lita Barakat WPtel: [address] [place], [place] [id number] [place] LAB 05/06/2012 Patient Education: Patient Medication Summary Completed 05/06/2012 Appointment: Lita Barakat WPtel: [address] [place], [place] [id number] [place] LAB 05/02/2012 Appointment: Lita Barakat WPtel: [address] [place], [place] [phone] [place] INJECTION 02/05/2012 Patient Education: Patient Medication Summary Completed 02/05/2012 Visit Plan: cefdinir. Will focus on rest and fluids. Pt. reports he is using breathing treatments as needed. Pt. will monitor for worsening symptoms or fever. 10/02/2011 Appointment: Kimberly Villalba WPtel: [address] [place], [place] [phone] ACUTE ILLNESS 10/02/2011 Patient Education: Patient Medication Summary Completed 10/02/2011 Appointment: Lita Barakat WPtel: [address] [place], [place] [phone] [place] INJECTION 08/10/2011 Patient Education: Patient Medication Summary Completed 08/10/2011 Visit Plan: Continue current meds Restar t Advair Restart exercise Flu shot given 08/07/2011 Appointment: Lita Barakat WPtel: [address] [place], [place] [phone] FOLLOW UP 08/07/2011 Patient Education: Patient Medication Summary Completed 08/07/2011 Appointment: Lita Barakat WPtel: [address] [place], [place] [phone] [place] LAB 07/26/2011 Patient Education: Patient Medication Summary Completed 07/26/2011 Visit Plan: ALEKSANDER Carmen Continue Metformin but change to BID Add Lantus 25u sc q PM BS readings in 1wk 04/03/2011 Appointment: Lita Barakat WPtel: [address] [place], [place] [phone] ACUTE ILLNESS 04/03/2011 Patient Education: Patient Medication Summary Completed 04/03/2011 Appointment: Lita Barakat WPtel: [address] [place], [place] [phone] [place] INJECTION 01/19/2011 Patient Education: Patient Medication Summary Completed 01/19/2011 Appointment: Lita Barakat WPtel: [address] [place], [place] [phone] ACUTE ILLNESS 01/18/2011 Patient Education: Patient Medication Summary Completed 01/18/2011 Appointment: Lita Barakat WPtel: [address] [place], [place] [phone] [place] INJECTION 12/21/2010 Patient Education: Patient Medication Summary Completed 12/21/2010 Appointment: Lita Barakat WPtel: [address] [place], [place] [phone] FOLLOW UP 12/19/2010 Patient Education: Patient Medication Summary Completed 12/19/2010 Appointment: Lita Barakat WPtel: [address] [place], [place] [phone] [place] LAB 12/07/2010 Patient Education: Patient Medication Summary Completed 12/07/2010 Appointment: Kimberly Villalba WPtel: [address] [place], [place] [phone] ACUTE ILLNESS 04/05/2010 Patient Education: Patient Medication Summary Completed 04/05/2010 Appointment: Lita Barakat WPtel: [address] [place], [place] [phone] [place] WORK IN 03/14/2010 Patient Education: Patient Medication Summary Completed 03/14/2010 Appointment: Lita Barakat WPtel: [address] [place], [place] [phone] [place] LAB 03/02/2010 Visit Plan: HbA1C in 3mos. Continue Accu checks BID alternating times. Switch lexapro to celexa 01/13/2010 Appointment: Lita Barakat WPtel: [address] [place], [place] [phone] FOLLOW UP 01/13/2010 Patient Education: Patient Medication Summary Completed 01/13/2010 Appointment: Lita Barakat WPtel: [address] [place], [place] [phone] FOLLOW UP 01/11/2010 Visit Plan: Pt. will continue the Avalox and Doxycycline regimen as prescribed the previous day. He has been advised to continue inhalers, breathing treatments and oxygen therapy for at least the weekend. Moderate activity without strenuous exercise. The pt. will seek immediate re-eval if his symptoms worsen. 12/23/2009 Appointment: Kimberly Villalba WPtel: [address] [place] [address] FOLLOW UP 12/23/2009 Patient Education: Patient Medication [...] tomorrow morning. 12/22/2009 Appointment: Kimberly Villalba WPtel: [address] [place], [place] [phone] ACUTE ILLNESS 12/22/2009 Patient Education: Patient Medication Summary Completed 12/22/2009 Appointment: Kimberly Villalba WPtel: [address] [place] [address] [place] FOLLOW UP 12/21/2009 Appointment: Lita Barakat WPtel: [address] [place], [place] [phone] [place] INJECTION 12/16/2009 Patient Education: Patient Medication Summary Completed 12/16/2009 Appointment: Kimberly Villalba WPtel: [phone] [id number] ACUTE ILLNESS 12/13/2009 Patient Education: Patient Medication Summary Completed 12/13/2009 Care Plan: X-RAY EXAM OF SHOULDER lt shoulder (pain ra diates across the shoulder) Hand carried orders to [facility] LOINC : 13973-5 Ordered 12/13/2009 Care Plan: X-RAY EXAM THORAC SPINE 2VWS Hand carried order LOINC : 85491-3 Ordered 12/13/2009 Care Plan: X-RAY EXAM RIBS UNI 2 VIEWS Posterior ribs of lt. side Pt. hand carries order to [facility] LOINC : 74972-4 Ordered 12/13/2009 Referral: José Miguel Swanson WPtel: [address] [address] [place] Referral Appointment Requested Referral: José Miguel Swanson WPtel: [address] [address] [place] Referral Appointment Requested Referral: Chandu Quarles WPtel: [address] Quarles for screening colonoscopy. P atient notified that [facility] office will book appt with him Initiated Referral: Santosh Machado WPtel: [address] [facility] [place] Referral Appointment Requested Referral: José Miguel Swanson WPtel: [address] [address] [place] Referral Initiated Referral: Lopez Chacon [address] [facility] C&D [id number] [place] Referral Initiated Referral: Demetrius Benjamin WPtel: [address] [place] [address] [place] Referral Appointment Requested Referral: José Miguel Swanson WPtel: [address] [address] [place] Referral Appointment Requested Referral: José Miguel Swanson WPtel: [address] [address] [place] Referral Initiated Instructions Comment . Saline nasal flushes prn. Tylenol/Motr in prn headache. Notify if persists/symptoms worsening. . MRI at [facility] Hydrocodone 5.325 1 po q [...]
--- NOTE | 2020-03-28 16:11 | NUR ---
IN ROOM AT THIS TIME.
[2020-03-28 16:12] LABS: ALANINE AMINOTRANSFERASE < 6 U/L (0-55); ALBUMIN 4.2 GM/DL (3.2-4.5); ALKALINE PHOSPHATASE 57 U/L (40-136); BILIRUBIN,TOTAL 0.3 MG/DL (0.1-1.0); BUN/CREATININE RATIO 23; CARBON DIOXIDE 27 MMOL/L (21-32); CHLORIDE 103 MMOL/L (98-107); CREATININE SERUM 1.01 MG/DL (0.60-1.30); GFR ESTIMATED > 60; GLUCOSE 145 MG/DL (70-105); MAGNESIUM 2.2 MG/DL (1.6-2.4); POTASSIUM 4.1 MMOL/L (3.6-5.0); SODIUM 140 MMOL/L (135-145); TOTAL PROTEIN 6.8 GM/DL (6.4-8.2)
--- OUTSIDE RECORDS SUMMARY | 2020-03-28 16:13 | XMS REPORT | CCD ---
Author Author Leandro Barakat D.O. 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 Name Role Phone Lita Barakat D.O., PP Unavailable CCM Unavailable Summary Purpose Interface Exchange Insurance Providers Payer name Policy type / Coverage type Covered democrat ID Effective Begin Date Effective End Date [employer] MEDICARE Medicare Part B [id number] 2019 Unknown Family history Brother Diagnosis Age At Onset Cancer Unknown Father Diagnosis Age At Onset Heart disease Unknown Mother Diagnosis Age At Onset Heart disease Unknown Social History Social History Element Codes Description Effective Dates Tobacco history SNOMED CT: 4676807 Former smoker quit 15 years ago 08/07/2011 [...] R07.9 06/22/2016 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: [...] hydrocodone 10 mg-acetaminophen 325 mg tablet RxNorm: 612361 1 Tablet(s) Oral Q4H as needed for pain 01/29/2020 No Stop Date Active ipratropium 0.5 mg-albuterol 3 mg (2.5 mg base)/3 mL n ebulization soln RxNorm: 2357760 USE 1 VIAL IN NEBULIZER Q4H (THIS REPLACES ALBUTEROL S OLUTION) 01/08/2020 02/06/2020 Active prednisone 20 mg tablet RxNorm: 982536 1 Tablet(s) Oral two remy es a day 12/25/2019 01/01/2020 Inactive Levemir FlexTouch U-100 Insulin 100 unit/mL (3 mL) sub cutaneous pen RxNorm: 598911 10 Unit(s) Subcutaneous every night at bedtime 12/22/2019 N o Stop Date Active baclofen 10 mg tablet RxNorm: 111789 1 Tablet(s) Oral QPM for p ain/spasm 12/22/2019 01/21/2020 Inactive ipratropium 0.5 mg-albuterol 3 mg (2.5 mg base)/3 mL n ebulization soln RxNorm: 5309864 USE 1 VIAL IN NEBULIZER Q4H (THIS REPLACES ALBUTEROL S OLUTION) 11/27/2019 12/16/2019 Inactive hydrocodone 10 mg-acetaminophen 325 mg tablet RxNorm: 735257 1 Tablet(s) Oral Q4H as needed for pain 11/13/2019 01/28/2020 Inactive Seroquel 50 mg tablet RxNorm: 792814 1 Tablet(s) Oral QPM as ne eded for sleep 10/07/2019 12/21/2019 Inactive ropinirole 4 mg tablet RxNorm: 785706 3 TABLET(S) BY [facility] DAILY AT BEDTIME FOR RESTLESS LEGS 09/29/2019 12/27/2019 Inactive Generic For:REQU IP 4 MG TABLET 09/29/2019 7:52:42 AM N O T I C E Last quantity doesn't match original quantity ropinirole 4 mg tablet RxNorm: 055343 3 TABLET(S) BY [facility] DAILY AT BEDTIME FOR RESTLESS LEGS 09/26/2019 09/28/2019 Inactive Generic For:REQU IP 4 MG TABLET 09/26/2019 9:08:48 AM N O T I C E Last quantity doesn't match original quantity ipratropium 0.5 mg-albuterol 3 mg (2.5 mg base)/3 mL n ebulization soln RxNorm: 0908803 USE 1 VIAL IN NEBULIZER EVERY FOUR HOURS (THIS REPLACES ALBUTEROL SOLUTION) 09/26/2019 10/15/2019 Inactive Generic For:*DUO NEB 2.5-0.5 MG/3 ML SOLN 09/26/2019 9:08:53 AM hydrocodone 10 mg-acetaminophen 325 mg tablet RxNorm: 147511 1 Tablet(s) Oral Q4H as needed for pain 09/09/2019 09/09/2019 Inactive hydrocodone 10 mg-acetaminophen 325 mg tablet RxNorm: 721519 1 Tablet(s) Oral Q4H as needed for pain 09/09/2019 09/08/2019 Inactive ondansetron HCl 4 mg tablet RxNorm: 429093 1 Tablet(s) Oral QPM for nausea 08/12/2019 10/10/2019 Inactive ipratropium 0.5 mg-albuterol 3 mg (2.5 mg base)/3 mL n ebulization soln RxNorm: 9883824 1 Unit Dose INH Q4H 08/12/2019 09/25/2019 Inactive replaces albuterol solution Augmentin 875 mg-125 mg tablet RxNorm: 618894 1 Tablet(s) Oral two times a day 08/07/2019 08/17/2019 Inactive prednisone 20 mg tablet RxNorm: 420101 1 Tablet(s) Oral QD 08/05/2008/04/2019 Inactive prednisone 20 mg tablet RxNorm: 542913 1 Tablet(s) Oral QD 08/05/2008/06/2019 Inactive Levaquin 500 mg tablet RxNorm: 139606 1 Tablet(s) Oral QD Replaces azithromycin (z-pack) 07/31/2019 08/05/2019 Inactive Levaquin 500 mg tablet RxNorm: 516127 1 Tablet(s) Oral QD Replaces azithromycin (z-pack) 07/21/2019 07/26/2019 Inactive Levaquin 500 mg tablet RxNorm: 652100 1 Tablet(s) Oral QD Replaces azithromycin (z-pack) 07/21/2019 07/20/2019 Inactive Zithromax Z-Gui 250 mg tablet RxNorm: 140466 Tablet(s) Oral 019 07/22/2019 Inactive Zithromax Z-Gui 250 mg tablet RxNorm: 416602 Tablet(s) Oral 019 07/15/2019 Inactive Symbicort 160 mcg-4.5 mcg/actuation HFA aerosol inhaler RxNo rm: 9456083 2 Puff(s) Inhalation two times a day 07/14/2019 07/14/2019 Inactive Tessalon Perles 100 mg capsule RxNorm: 108189 1 Capsule(s) Oral Q8H as needed 07/14/2019 08/06/2019 Inactive Seroquel 50 mg tablet RxNorm: 700316 1 Tablet(s) Oral QPM as ne eded for sleep 07/01/2019 10/06/2019 Inactive ondansetron HCl 4 mg tablet RxNorm: 284857 1 Tablet(s) Oral QPM for nausea 06/24/2019 07/24/2019 Inactive Seroquel 25 mg tablet RxNorm: 066264 1 Tablet(s) Oral every nig ht at bedtime 06/19/2019 06/18/2019 Inactive Seroquel 25 mg tablet RxNorm: 737598 1 Tablet(s) Oral every nig ht at bedtime 06/19/2019 06/30/2019 Inactive trazodone 150 mg tablet RxNorm: 495441 1/2 Tablet(s) PO QHS as needed for sleep 06/11/2019 06/17/2019 Inactive replaces PA on doxep in trazodone 150 mg tablet RxNorm: 492376 1/2 Tablet(s) PO QHS as needed for sleep 05/12/2019 06/11/2019 Inactive replaces PA on doxep in Vitamin D3 5,000 unit tablet RxNorm: 380722 1 Tablet(s) PO QD 05/09 No Stop Date Active magnesium oxide 400 mg (241.3 mg magnesium) tablet RxNorm: 1 26112 1 Tablet(s) PO QHS 05/09/2019 No Stop Date Active cyanocobalamin (vit B-12) 1,000 mcg/mL injection solution Rx Norm: 093154 1 injection weekly for 4 weeks 1 Milliliter(s) Inj 05/09/2019 12/21/2019 Inactive ferrous sulfate 325 mg (65 mg iron) tablet RxNorm: 693075 1 Tab let(s) PO QD 05/09/2019 12/21/2019 Inactive ropinirole 4 mg tablet RxNorm: 803657 3 TABLET(S) BY [facility] DAILY AT BEDTIME FOR RESTLESS LEGS 03/26/2019 06/23/2019 Inactive Generic For:REQU IP 4 MG TABLET 03/26/2019 11:23:36 AM N O T I C E Last quantity doesn't match original quantity pantoprazole 40 mg tablet,delayed release RxNorm: 752202 Tablet(s) TAKE 1 TABLET BY MOUTH DAILY FOR STOMACH 03/24/2019 06/21/2019 Inactive Gener ic For:PROTONIX 40MG TAB EC 01/03/2019 1:23:44 PM hydroxyzine HCl 10 mg tablet RxNorm: 821305 1 Tablet(s) PO BID as needed 03/24/2019 04/06/2019 Inactive ipratropium-albuterol 0.5 mg-3 mg(2.5 mg base)/3 mL ne bulization soln RxNorm: 5750233 1 Unit Dose INH Q4H 03/21/2019 No Stop Date Active replaces albuterol solution meclizine 12.5 mg tablet RxNorm: 444594 1 Tablet(s) PO BID as neede d 03/21/2019 12/21/2019 Inactive losartan 100 mg tablet RxNorm: 920894 1 Tablet(s) PO QD replace s lisinopril 03/13/2019 09/08/2019 Inactive fluconazole 100 mg tablet RxNorm: 549382 1 Tablet(s) PO QD 03/13/2003/19/2019 Inactive nystatin 100,000 unit/mL oral suspension RxNorm: 970348 5 Unit( s) PO QID 03/13/2019 03/26/2019 Inactive tramadol 50 mg tablet RxNorm: 492366 1 Tablet(s) PO TID as needed for pain TAKE 2 TABS OF EXTRA STRENGTH TYLENOL WITH EACH DOSE 03/10/2019 04/06/2019 Inactive Generic For:*ULTRAM 50 MG TABLET 01/15/2019 4:55:26 PM Sinemet CR 50 mg-200 mg tablet,extended release RxNorm: 8343 41 1 Tablet(s) PO TID 02/26/2019 08/24/2019 Inactive Generic For:*SIN EMET CR 50/200 TABLET SA 07/08/2018 3:09:11 PM trazodone 150 mg tablet RxNorm: 111546 1/2 Tablet(s) PO QHS as needed for sleep 02/13/2019 02/12/2019 Inactive trazodone 150 mg tablet RxNorm: 225506 1/2 Tablet(s) PO QHS as needed for sleep 02/13/2019 02/25/2019 Inactive replaces PA on doxep in doxepin 10 mg capsule RxNorm: 1391268 1-2 Capsule(s) PO QHS prn sleep 02/13/2019 02/13/2019 Inactive Novolog U-100 Insulin aspart 100 unit/mL subcutaneous soluti on RxNorm: 743628 INJECT 10 UNIT(S) SUBCUTANEOUSLY BEFORE MEALS 01/31/2019 05/30/2019 In active 01/31/2019 1:39:10 PM ipratropium-albuterol 0.5 mg-3 mg(2.5 mg base)/3 mL ne bulization soln RxNorm: 8679545 1 Unit Dose INH Q4H 01/17/2019 03/20/2019 Inactive replaces albuterol solution tramadol 50 mg tablet RxNorm: 812557 1 Tablet(s) PO TID as needed for pain TAKE 2 TABS OF EXTRA STRENGTH TYLENOL WITH EACH DOSE 01/15/2019 02/03/2019 Inactive Generic For:*ULTRAM 50 MG TABLET 01/15/2019 4:55:26 PM Sinemet CR 50 mg-200 mg tablet,extended release RxNorm: 8343 41 1 Tablet(s) PO BID 01/03/2019 02/25/2019 Inactive Generic For:*SIN EMET CR 50/200 TABLET SA 07/08/2018 3:09:11 PM losartan 100 mg tablet RxNorm: 678820 1 Tablet(s) PO QD replace s lisinopril 01/03/2019 03/12/2019 Inactive Symbicort 160 mcg-4.5 mcg/actuation HFA aerosol inhaler RxNo rm: 3407794 2 Puff(s) INH BID 01/03/2019 01/02/2019 Inactive pantoprazole 40 mg tablet,delayed release RxNorm: 678933 TAKE 1 TABLET BY MOUTH DAILY FOR STOMACH 01/03/2019 03/23/2019 Inactive Generic For:CT OTONIX 40MG TAB EC 01/03/2019 1:23:44 PM nystatin 100,000 unit/mL oral suspension RxNorm: 686786 Unit(s) 5 Unit(s) PO QID swish and spit 01/02/2019 11/11/2019 Inactive Incruse Ellipta 62.5 mcg/actuation powder for inhalation RxN orm: 4857974 1 Capsule(s) INH QD 12/25/2018 12/21/2019 Inactive Tessalon Perles 100 mg capsule RxNorm: 011548 1 Capsule(s) PO T ID for cough 12/25/2018 02/25/2019 Inactive Medrol (Gui) 4 mg tablets in a dose pack RxNorm: 584086 Tablet(s) PO Use as directed 12/23/2018 01/02/2019 Inactive Levemir FlexTouch U-100 Insulin 100 unit/mL (3 mL) sub cutaneous pen RxNorm: 274716 20 Unit(s) SQ QD with pen needles 12/13/2018 05/11/2019 Inactiv e prednisone 20 mg tablet RxNorm: 587355 1 Tablet(s) PO QD 12/12/2018 0 12/11/2018 Inactive prednisone 20 mg tablet RxNorm: 588762 1 Tablet(s) PO QD 12/12/2018 0 12/16/2018 Inactive promethazine 6.25 mg-codeine 10 mg/5 mL syrup RxNorm: 681585 5 Milliliter(s) PO QHS as needed for cough 12/09/2018 12/18/2018 Inactive cefdinir 300 mg capsule RxNorm: 978458 1 Capsule(s) PO BID 12/10/1912/18/2018 Inactive fluconazole 100 mg tablet RxNorm: 274660 1 Tablet(s) PO QD 12/06/1912/08/2018 Inactive ropinirole 4 mg tablet RxNorm: 922980 3 Tablet(s) PO QHS for re stless legs 12/04/2018 03/03/2019 Inactive Novolog U-100 Insulin aspart 100 unit/mL subcutaneous soluti on RxNorm: 476017 INJECT 10 UNIT(S) SUBCUTANEOUSLY BEFORE MEALS 12/04/2018 01/30/2019 In active 12/04/2018 10:02:42 AM nystatin 100,000 unit/mL oral suspension RxNorm: 862381 5 Unit(s) PO QID swish and spit 11/25/2018 12/18/2018 Inactive ropinirole 4 mg tablet RxNorm: 166935 3 Tablet(s) PO QHS for re stless legs 11/04/2018 12/03/2018 Inactive prednisone 20 mg tablet RxNorm: 032411 1 Tablet(s) PO BID 10/23/2018 10/29/2018 Inactive ropinirole 4 mg tablet RxNorm: 802057 3 Tablet(s) PO QHS for re stless legs 10/14/2018 11/04/2018 Inactive pantoprazole 40 mg tablet,delayed release RxNorm: 593932 1 Tablet(s) PO QD forstomach 10/10/2018 01/02/2019 Inactive Symbicort 160 mcg-4.5 mcg/actuation HFA aerosol inhaler RxNo rm: 3698302 2 Puff(s) INH BID 10/10/2018 01/03/2019 Inactive Novolog U-100 Insulin aspart 100 unit/mL subcutaneous soluti on RxNorm: 890375 INJECT 10 UNIT(S) SUBCUTANEOUSLY BEFORE MEALS 10/10/2018 12/03/2018 In active 10/10/2018 11:30:01 AM Sinemet CR 50 mg-200 mg tablet,extended release RxNorm: 8343 41 1 Tablet(s) PO BID 09/26/2018 01/03/2019 Inactive Generic For:*SIN EMET CR 50/200 TABLET SA 07/08/2018 3:09:11 PM ropinirole 4 mg tablet RxNorm: 764603 2 Tablet(s) PO QHS for re stless legs 09/18/2018 10/13/2018 Inactive metformin ER 1,000 mg tablet,extended release 24hr RxNorm: 1 071941 1 Tablet(s) PO BID 09/09/2018 12/18/2018 Inactive ropinirole 4 mg tablet RxNorm: 893810 2 Tablet(s) PO QHS for re stless legs 08/21/2018 09/17/2018 Inactive doxycycline hyclate 100 mg capsule RxNorm: 6176453 1 Capsule(s) PO BID 08/07/2018 08/13/2018 Inactive ropinirole 4 mg tablet RxNorm: 627339 1 Tablet(s) PO QHS replac es 1mg dose 08/07/2018 08/20/2018 Inactive ropinirole 2 mg tablet RxNorm: 952608 TAKE 3 TABLETS BY MOUTH DAILY AT BEDTIME DO NOT EXCEED 3 TABLETS PER DAY!!!! 07/31/2018 08/06/2018 Inactive Generic For:REQUIP 2 MG TABLET 07/30/2018 3:50:28 PM Symbicort 160 mcg-4.5 mcg/actuation HFA aerosol inhaler RxNo rm: 8296187 2 Puff(s) INH BID 07/12/2018 10/09/2018 Inactive Sinemet CR 50 mg-200 mg tablet,extended release RxNorm: 8343 41 TAKE 1 TABLET BY MOUTH TWICE DAILY 07/08/2018 09/26/2018 Inactive Generic For:*S INEMET CR 50/200 TABLET SA 07/08/2018 3:09:11 PM losartan 100 mg tablet RxNorm: 137388 1 Tablet(s) PO QD replace s lisinopril 06/17/2018 12/13/2018 Inactive Novolog U-100 Insulin aspart 100 unit/mL subcutaneous soluti on RxNorm: 018376 10 Unit(s) SQ AC 06/17/2018 10/09/2018 Inactive albuterol sulfate 2.5 mg/3 mL (0.083 %) solution for n ebulization RxNorm: 712029 Milliliter(s) INH USE 1 VIAL IN NEBULIZE R EVERY FOUR HOURS NEEDED FOR WHEEZING OR SHORTNESS OF BREATH 06/13/2018 01/16/2019 Inactive Generic For:*PROVENTIL 0.83 MG/ML SOLUTN 06/13/2013 2:04:46 PM ropinirole 2 mg tablet RxNorm: 332135 3 Tablet(s) PO QH S DO NOT EXCEED 6MG (3 TABLETS) PER DAY!!!! 06/13/2018 07/31/2018 Inactive atorvastatin 40 mg tablet RxNorm: 768735 Tablet(s) TAKE 1 TABLET BY MOUTH EVERY DAY 05/13/2018 12/18/2018 Inactive Generic For:LIPI TOR 40MG TAB 05/01/2018 8:37:31 AM Sinemet CR 50 mg-200 mg tablet,extended release RxNorm: 8343 41 1 Tablet(s) PO BID 05/08/2018 07/06/2018 Inactive Lidocaine Viscous 2 % mucosal solution RxNorm: 7350274 5 Milliliter(s) PO QID as needed 05/02/2018 08/06/2018 Inactive Diflucan 100 mg tablet RxNorm: 645925 1 Tablet(s) PO QD 05/02/2018 Inactive atorvastatin 40 mg tablet RxNorm: 509362 TAKE 1 TABLET BY MOUTH EVERY DAY 05/01/2018 05/13/2018 Inactive Generic For:LIPITOR 40MG TAB 05/01/2018 8:37:31 AM nystatin 100,000 unit/mL oral suspension RxNorm: 209881 5 Unit(s) PO QID (before meals and at bedtime) 04/24/2018 04/30/2018 Inactive Ventolin HFA 90 mcg/actuation aerosol inhaler RxNorm: 082161 2 Puff(s) INH Q4H as needed one inhaler for home and one inhaler for car 04/23/201812/18 Inactive Mucinex 600 mg tablet, extended release RxNorm: 134628 1 Tablet(s) PO BID for congestion 04/22/2018 05/21/2018 Inactive prednisone 10 mg tablet RxNorm: 112284 Tablet(s) PO as directeds 08/06/2018 Inactive ropinirole 2 mg tablet RxNorm: 019073 3 Tablet(s) PO QH S DO NOT EXCEED 6MG (3 TABLETS) PER DAY!!!! 04/09/2018 05/08/2018 Inactive gabapentin 300 mg capsule RxNorm: 465634 1-2 Capsule(s) PO QHS 02/201804/08/2018 Inactive ropinirole 2 mg tablet RxNorm: 171731 1 Tablet(s) PO QHS 03/28/2018 0 04/08/2018 Inactive gabapentin 300 mg capsule RxNorm: 271373 1-2 Capsule(s) PO QHS 02/2303/29/2018 Inactive gabapentin 300 mg capsule RxNorm: 137946 1-2 Capsule(s) PO QHS 02/2203/13/2018 Inactive gabapentin 300 mg capsule RxNorm: 503051 2 Capsule(s) PO QHS 201703/11/2018 Inactive ropinirole 2 mg tablet RxNorm: 470834 1 Tablet(s) PO QHS 02/28/2018 0 03/28/2018 Inactive ropinirole 2 mg tablet RxNorm: 176161 1 Tablet(s) PO QHS 02/28/2018 0 02/27/2018 Inactive gabapentin 300 mg capsule RxNorm: 812405 1 Capsule(s) PO QHS 201702/27/2018 Inactive pantoprazole 40 mg tablet,delayed release RxNorm: 453256 1 Tablet(s) PO QD forstomach 01/23/2018 05/22/2018 Inactive Voltaren 1 % topical gel RxNorm: 056498 1 Gram(s) TOP QID to ri ght knee 01/23/2018 02/04/2018 Inactive metformin ER 500 mg tablet,extended release 24hr RxNorm: 860 975 2 Tablet(s) PO BID 01/09/2018 12/08/2018 Inactive Requip 1 mg tablet RxNorm: 689963 1 Tablet(s) PO QHS 01/09/201802/27 Inactive prednisone 20 mg tablet RxNorm: 347471 1 Tablet(s) PO T ID for 3 days then 1 po BID for 3 days then one daily for 3 days 01/02/2018 02/03/2018 Inactiv e Levaquin 500 mg tablet RxNorm: 327185 1 Tablet(s) PO QD 01/02/2018 Inactive ProAir HFA 90 mcg/actuation aerosol inhaler RxNorm: 638391 2 Puff(s) INH Q4H as needed 12/28/2017 No Stop Date Active please switch to ventolin if insurance doesn't cover montelukast 10 mg tablet RxNorm: 849878 1 Tablet(s) PO QD 12/28/2017 02/03/2018 Inactive Levaquin 500 mg tablet RxNorm: 573034 1 Tablet(s) PO QD 12/21/2017 Inactive ProAir HFA 90 mcg/actuation aerosol inhaler RxNorm: 370008 2 Puff(s) INH Q4H as needed 12/21/2017 12/27/2017 Inactive please switch to ventolin if insurance doesn't cover doxycycline hyclate 100 mg tablet RxNorm: 735125 1 Tablet(s) PO BID 12/17/2017 12/26/2017 Inactive Levemir FlexTouch U-100 Insulin 100 unit/mL (3 mL) sub cutaneous pen RxNorm: 243854 20 Unit(s) SQ QD with pen needles---Due for labs 12/11/2017 02/03/2018 Inactive Requip 1 mg tablet RxNorm: 439014 1 Tablet(s) PO QHS 12/10/201712/09 Inactive Requip 1 mg tablet RxNorm: 877286 1 Tablet(s) PO QHS 12/10/201701/09 Inactive albuterol sulfate 2.5 mg/3 mL (0.083 %) solution for n ebulization RxNorm: 657724 Milliliter(s) INH USE 1 VIAL IN NEBULIZE R EVERY FOUR HOURS NEEDED FOR WHEEZING OR SHORTNESS OF BREATH 12/05/2017 06/13/2018 Inactive Generic For:*PROVENTIL 0.83 MG/ML SOLUTN 06/13/2013 2:04:46 PM Tudorza Pressair 400 mcg/actuation breath activated RxNorm: 1108200 1 Puff(s) INH BID 12/03/2017 12/10/2017 Inactive Levemir FlexTouch U-100 Insulin 100 unit/mL (3 mL) sub cutaneous pen RxNorm: 383752 10 Unit(s) SQ QD with pen needles---Due for labs 11/16/2017 12/10/2017 Inactive Zofran ODT 4 mg disintegrating tablet RxNorm: 804924 1 Tablet(s) PO Q4H as needed for nausea 10/17/2017 02/04/2018 Inactive Efudex 5 % topical cream RxNorm: 831686 Application TOP QD prn to precancer skin lesions 10/17/2017 02/03/2018 Inactive Sinemet CR 50 mg-200 mg tablet,extended release RxNorm: 8343 41 1 Tablet(s) PO BID 10/17/2017 02/05/2018 Inactive Sinemet CR 50 mg-200 mg tablet,extended release RxNorm: 8343 41 1 Tablet(s) PO QHS 09/25/2017 10/16/2017 Inactive gabapentin 600 mg tablet RxNorm: 979282 1 Tablet(s) PO BID 08/15/20 17 08/14/2017 Inactive gabapentin 600 mg tablet RxNorm: 197839 1 Tablet(s) PO BID 08/15/20 17 12/10/2017 Inactive Novolog U-100 Insulin aspart 100 unit/mL subcutaneous soluti on RxNorm: 898889 10 Unit(s) SQ AC 08/15/2017 02/03/2018 Inactive Novolog 100 unit/mL subcutaneous solution RxNorm: 812718 10 Uni t(s) SQ AC 08/13/2017 08/14/2017 Inactive prednisone 20 mg tablet RxNorm: 553100 2 Tablet(s) PO QD 08/02/201710/04/2016 Inactive gabapentin 600 mg tablet RxNorm: 621609 Tablet(s) 1 Tab let(s) PO QHS replaces 300mg dose 07/09/2017 08/14/2017 Inactive Breo Ellipta 100 mcg-25 mcg/dose powder for inhalation RxNor m: 9703035 1 Unit Dose INH QD 07/02/2017 08/30/2017 Inactive Tudorza Pressair 400 mcg/actuation breath activated RxNorm: 7760185 1 Puff(s) INH BID 06/18/2017 12/02/2017 Inactive gabapentin 600 mg tablet RxNorm: 549788 1 Tablet(s) PO QHS repl aces 300mg dose 06/14/2017 07/08/2017 Inactive metformin ER 1,000 mg tablet,extended release 24hr RxNorm: 1 266070 1 Tablet(s) PO BID 05/29/2017 01/08/2018 Inactive cyclobenzaprine 5 mg tablet RxNorm: 957365 1 Tablet(s) PO TID 05/2906/07/2017 Inactive metformin ER 1,000 mg tablet,extended release 24hr RxNorm: 8 31651 1 Tablet(s) PO BID 05/25/2017 05/28/2017 Inactive metformin ER 1,000 mg tablet,extended release 24hr RxNorm: 8 03237 1 Tablet(s) PO BID 05/22/2017 05/24/2017 Inactive Amaryl 2 mg tablet RxNorm: 336765 1 Tablet(s) PO BID 05/01/201702/03 Inactive glimepiride 2 mg tablet RxNorm: 981132 1 Tablet(s) PO BID 04/19/2017 02/03/2018 Inactive ferrous sulfate 325 mg (65 mg iron) tablet RxNorm: 342261 1 Tab let(s) PO QHS 04/17/2017 02/03/2018 Inactive Requip 4 mg tablet RxNorm: 520632 1 Tablet(s) PO BID 04/12/201704/11 Inactive Requip 4 mg tablet RxNorm: 061232 1 Tablet(s) PO BID 04/12/201704/15 Inactive Levemir FlexTouch 100 unit/mL (3 mL) subcutaneous insulin pe n RxNorm: 690379 10 Unit(s) SQ QD with pen needles---Due for labs 04/05/2017 11/15/2017 In active Silenor 3 mg tablet RxNorm: 125665 1 Tablet(s) PO QHS 04/05/201709/25 Inactive ropinirole 4 mg tablet RxNorm: 547720 1 Tablet(s) PO QHS 03/29/2017 0 04/01/2017 Inactive ropinirole 4 mg tablet RxNorm: 935523 1 Tablet(s) PO QHS 03/29/2017 0 03/28/2017 Inactive Requip 4 mg tablet RxNorm: 112920 1 Tablet(s) PO QHS 03/28/201704/01 Inactive gabapentin 600 mg tablet RxNorm: 191221 1 Tablet(s) PO QHS repl aces 300mg dose 03/28/2017 04/15/2017 Inactive Requip 4 mg tablet RxNorm: 232368 1 Tablet(s) PO QHS 03/23/201703/27 Inactive gabapentin 600 mg tablet RxNorm: 428515 1 Tablet(s) PO QHS 03/13/20 17 03/12/2017 Inactive gabapentin 600 mg tablet RxNorm: 657944 1 Tablet(s) PO QHS 03/13/20 17 03/27/2017 Inactive gabapentin 300 mg capsule RxNorm: 827644 1 Capsule(s) PO QPM 201603/12/2017 Inactive Generic For:NEURONTIN 300 MG CAPSULE 01/22/2017 10:10:39 AM losartan 100 mg tablet RxNorm: 027078 1 Tablet(s) PO QD replace s lisinopril 02/21/2017 06/17/2018 Inactive gabapentin 300 mg capsule RxNorm: 376169 TAKE 1 CAPSULE BY MOUT H EVERY EVENING 01/22/2017 02/21/2017 Inactive Generic For:NEURONTI N 300 MG CAPSULE 01/22/2017 10:10:39 AM gabapentin 300 mg capsule RxNorm: 937470 1 Capsule(s) PO QPM 201601/21/2017 Inactive Requip 4 mg tablet RxNorm: 026324 1 Tablet(s) PO QHS 12/21/201603/20 Inactive Effient 10 mg tablet RxNorm: 816341 1 Tablet(s) PO QD 12/12/201612/23 Inactive gabapentin 300 mg capsule RxNorm: 043835 1 Capsule(s) PO QPM 201612/03/2016 Inactive gabapentin 300 mg capsule RxNorm: 377298 1 Capsule(s) PO QPM 201612/13/2016 Inactive Requip 4 mg tablet RxNorm: 837315 1 Tablet(s) PO QHS 11/28/201612/21 Inactive atorvastatin 40 mg tablet RxNorm: 043573 Tablet(s) 1 Tablet(s) PO Q D 11/22/2016 08/18/2017 Inactive atorvastatin 40 mg tablet RxNorm: 197072 1 Tablet(s) PO QD 11/23/1911/21/2016 Inactive ropinirole 1 mg tablet RxNorm: 491392 2.5 Tablet(s) PO QPM for legs/sleep 11/14/2016 11/27/2016 Inactive nystatin 100,000 unit/mL oral suspension RxNorm: 294768 5 Unit(s) PO QID swish and spit 10/31/2016 02/03/2018 Inactive fluconazole 100 mg tablet RxNorm: 643075 1 Tablet(s) PO QD 10/31/1911/09/2016 Inactive doxycycline hyclate 100 mg capsule RxNorm: 7618314 1 Capsule(s) PO BID 10/03/2016 10/12/2016 Inactive Levemir FlexTouch 100 unit/mL (3 mL) subcutaneous insulin pe n RxNorm: 634429 10 Unit(s) SQ QD with pen needles 09/18/2016 04/04/2017 Inactive amitriptyline 25 mg tablet RxNorm: 924840 1 Tablet(s) P O QHS as needed for sleep 09/04/2016 10/17/2016 Inactive ropinirole 1 mg tablet RxNorm: 116746 1.5 Tablet(s) PO QPM for legs/sleep 09/04/2016 11/13/2016 Inactive amitriptyline 25 mg tablet RxNorm: 775757 1 Tablet(s) P O QHS as needed for sleep 08/22/2016 09/03/2016 Inactive clopidogrel 75 mg tablet RxNorm: 942414 1 Tablet(s) PO QD 08/10/2016 10/17/2016 Inactive Zoloft 100 mg tablet RxNorm: 573910 2 Tablet(s) PO QHS 08/10/2016 Inactive atorvastatin 40 mg tablet RxNorm: 339270 1 Tablet(s) PO QD 08/10/2010/17/2016 Inactive ropinirole 1 mg tablet RxNorm: 833724 1 Tablet(s) PO QPM for le gs/sleep 08/10/2016 09/03/2016 Inactive losartan 100 mg tablet RxNorm: 743677 1 Tablet(s) PO QD replace s lisinopril 07/20/2016 02/21/2017 Inactive Zofran 4 mg tablet RxNorm: 108170 1 Tablet(s) PO Q4H as needed for nausea 07/06/2016 10/17/2016 Inactive Flagyl 500 mg tablet RxNorm: 281922 1 Tablet(s) PO TID 07/06/2016 Inactive Plavix 75 mg tablet RxNorm: 094054 1 Tablet(s) PO QD 06/08/201607/05 Inactive isosorbide mononitrate ER 30 mg tablet,extended release 24 h r RxNorm: 335884 1 Tablet(s) PO QAM 06/08/2016 08/09/2016 Inactive atorvastatin 40 mg tablet RxNorm: 776473 1 Tablet(s) PO QD 06/08/20 16 08/09/2016 Inactive hydrochlorothiazide 12.5 mg tablet RxNorm: 215840 1 Tablet(s) PO QA M 06/08/2016 07/05/2016 Inactive metformin ER 1,000 mg tablet,extended release 24hr RxNorm: 8 15380 1 Tablet(s) PO BID 06/08/2016 09/05/2016 Inactive metoprolol tartrate 25 mg tablet RxNorm: 653271 1/2 Tablet(s) PO BI D 06/08/2016 08/09/2016 Inactive Zoloft 100 mg tablet RxNorm: 475740 2 Tablet(s) PO QHS 04/03/2016 Inactive metformin ER 1,000 mg tablet,extended release 24hr RxNorm: 8 40227 Tablet(s) 1 Tablet(s) PO QD 03/30/2016 12/18/2018 Inactive Levemir FlexTouch 100 unit/mL (3 mL) subcutaneous insulin pe n RxNorm: 052886 10 Unit(s) SQ QD 03/09/2016 03/08/2016 Inactive Levemir FlexTouch 100 unit/mL (3 mL) subcutaneous insulin pe n RxNorm: 183753 10 Unit(s) SQ QD with pen needles 03/09/2016 03/20/2016 Inactive Mobic 15 mg tablet RxNorm: 631147 1 Tablet(s) PO QD for foot pain 0 02/17/2016 03/17/2016 Inactive Zoloft 100 mg tablet RxNorm: 373610 1 1/2 Tablet(s) PO QHS 01/31/20 16 04/02/2016 Inactive omeprazole 20 mg capsule,delayed release RxNorm: 142921 TAKE 2 CAPSULES BY MOUTH EVERY DAY 01/12/2016 08/09/2016 Inactive Generic For:*CHERYL LOSEC 20 MG CAPSULE 01/12/2016 8:58:34 AM Zoloft 100 mg tablet RxNorm: 082379 1/2 Tablet(s) PO QH S for 1 week then 1 tablet po q HS 12/30/2015 01/27/2016 Inactive Ventolin HFA 90 mcg/actuation aerosol inhaler RxNorm: 552572 2 Puff(s) INH QID as needed for shortness of breath 12/30/2015 02/03/2018 Inactive [AttnRPh: Saving apply/adjudicate RxGRP:SG20 RxBIN:[id number] RxPCN: ID#:[id number]] metformin ER 1,000 mg tablet,extended release 24hr RxNorm: 8 01609 1 Tablet(s) PO QD 12/20/2015 03/18/2016 Inactive clindamycin 300 mg capsule RxNorm: 456117 1 Capsule(s) PO TID 12/0512/15/2015 Inactive mupirocin 2 % topical cream RxNorm: 790668 TOP to facial lesion s twice daily 11/15/2015 12/15/2015 Inactive cefdinir 300 mg capsule RxNorm: 558114 1 Capsule(s) PO BID 11/15/19 16 11/24/2015 Inactive Medrol (Gui) 4 mg tablets in a dose pack RxNorm: 417823 Tablet(s) PO as directed 10/11/2015 12/15/2015 Inactive albuterol sulfate 2.5 mg/3 mL (0.083 %) solution for n ebulization RxNorm: 459953 INH USE 1 VIAL IN NEBULIZER EVERY FOUR H OURS NEEDED FOR WHEEZING OR SHORTNESS OF BREATH 10/05/2015 10/04/2015 Inactive Generic For:*PRO VENTIL 0.83 MG/ML SOLUTN 06/13/2013 2:04:46 PM doxycycline hyclate 100 mg capsule RxNorm: 1224032 1 Capsule(s) PO BID 10/05/2015 10/14/2015 Inactive albuterol sulfate 2.5 mg/3 mL (0.083 %) solution for n ebulization RxNorm: 716629 Milliliter(s) INH USE 1 VIAL IN NEBULIZE R EVERY FOUR HOURS NEEDED FOR WHEEZING OR SHORTNESS OF BREATH Dx: J44.9 10/05/2015 12/05/2017 Inacti ve Generic For:*PROVENTIL 0.83 MG/ML SOLUTN 06/13/2013 2:04:46 PM albuterol sulfate 2.5 mg/3 mL (0.083 %) solution for n ebulization RxNorm: 356121 3 Milliliter(s) INH USE 1 VIAL IN NEBULI ZER EVERY FOUR HOURS NEEDED FOR WHEEZING OR SHORTNESS OF BREATH 09/06/2015 10/04/2015 Inactive Generic For:*PROVENTIL 0.83 MG/ML SOLUTN 06/13/2013 2:04:46 PM Tradjenta 5 mg tablet RxNorm: 4071269 2 Tablet(s) PO QD 07/22/2015 Inactive albuterol sulfate 2.5 mg/3 mL (0.083 %) solution for n ebulization RxNorm: 891128 3 Milliliter(s) INH USE 1 VIAL IN NEBULI ZER EVERY FOUR HOURS NEEDED FOR WHEEZING OR SHORTNESS OF BREATH 06/29/2015 09/05/2015 Inactive Generic For:*PROVENTIL 0.83 MG/ML SOLUTN 06/13/2013 2:04:46 PM albuterol sulfate 2.5 mg/3 mL (0.083 %) solution for n ebulization RxNorm: 613392 Milliliter(s) INH USE 1 VIAL IN NEBULIZE R EVERY FOUR HOURS NEEDED FOR WHEEZING OR SHORTNESS OF BREATH 06/29/2015 12/04/2017 Inactive Generic For:*PROVENTIL 0.83 MG/ML SOLUTN 06/13/2013 2:04:46 PM doxycycline hyclate 100 mg tablet RxNorm: 896688 1 Tablet(s) PO BID 06/28/2015 07/07/2015 Inactive losartan 100 mg tablet RxNorm: 565139 1 Tablet(s) PO QD -replac es lisinopril 06/14/2015 09/05/2015 Inactive metformin ER 1,000 mg tablet,extended release 24hr RxNorm: 8 26665 1 Tablet(s) PO QD 06/14/2015 09/11/2015 Inactive losartan 100 mg tablet RxNorm: 607941 1 Tablet(s) PO QD -replac es lisinopril 06/14/2015 12/10/2015 Inactive Zocor 20 mg tablet RxNorm: 413300 Tablet(s) Tablet(s) 1 Tablet(s) PO QD -needs lipids labs 06/14/2015 06/14/2015 Inactive atorvastatin 40 mg tablet RxNorm: 689740 1 Tablet(s) PO QD repl aces simvastatin 06/14/2015 12/10/2015 Inactive loratadine 10 mg tablet RxNorm: 501252 Tablet(s) 1 Tablet(s) PO QD for drainage 06/14/2015 06/07/2016 Inactive Celexa 40 mg tablet RxNorm: 697547 1 Tablet(s) PO QD TA KE ONE (1) TABLET BY MOUTH DAILY 06/14/2015 12/29/2015 Inactive Generic For:HARJINDER XA 40 MG TABLET clindamycin 300 mg capsule RxNorm: 222463 2 Capsule(s) PO BID 06/0306/12/2015 Inactive metformin ER 1,000 mg tablet,extended release 24hr RxNorm: 8 92714 1 Tablet(s) PO QD 06/03/2015 06/02/2015 Inactive metformin ER 1,000 mg tablet,extended release 24hr RxNorm: 8 38112 1 Tablet(s) PO QD 06/03/2015 06/13/2015 Inactive mupirocin 2 % topical ointment RxNorm: 471548 TOP apply to open lesion of knee twice daily 06/03/2015 01/30/2016 Inactive Zocor 20 mg tablet RxNorm: 349034 Tablet(s) 1 Tablet(s ) PO QD -needs lipids labs 05/13/2015 06/13/2015 Inactive Celexa 40 mg tablet RxNorm: 631249 1 Tablet(s) PO QD TA KE ONE (1) TABLET BY MOUTH DAILY 05/13/2015 06/13/2015 Inactive Generic For:HARJINDER XA 40 MG TABLET Zocor 20 mg tablet RxNorm: 904601 Tablet(s) 1 Tablet(s ) PO QD -needs lipids labs 02/23/2015 03/24/2015 Inactive loratadine 10 mg tablet RxNorm: 722961 1 Tablet(s) PO QD for dr saenz 12/24/2014 06/13/2015 Inactive Zocor 20 mg tablet RxNorm: 528500 1 Tablet(s) PO QD -needs lipi ds labs 11/17/2014 02/23/2015 Inactive Celexa 40 mg tablet RxNorm: 482434 1 Tablet(s) PO QD 1 Tablet(s) PO QD 1 Tablet(s) PO QD Generic OKAY 11/11/2014 05/13/2015 Inactive Zocor 20 mg tablet RxNorm: 895614 1 Tablet(s) PO QD -needs lipi Emotient labs 11/11/2014 11/16/2014 Inactive omeprazole 20 mg capsule,delayed release RxNorm: 737438 2 Capsule(s) PO QD TAKE 2 CAPSULES BY MOUTH DAILY 10/27/2014 04/24/2015 Inactive Generi loyd For:*PRILOSEC 20 MG CAPSULE trazodone 50 mg tablet RxNorm: 287947 1 1/2 Tablet(s) PO QHS 201412/29/2015 Inactive losartan 100 mg tablet RxNorm: 867673 1 Tablet(s) PO QD -replac es lisinopril 10/26/2014 04/23/2015 Inactive Levaquin 500 mg tablet RxNorm: 488685 1 Tablet(s) PO QD 10/08/2014 Inactive Levaquin 500 mg tablet RxNorm: 614943 1 Tablet(s) PO QD 10/08/2014 Inactive Diflucan 100 mg tablet RxNorm: 733369 1 Tablet(s) PO QD 10/06/2014 Inactive DuoNeb 0.5 mg-3 mg(2.5 mg base)/3 mL solution for nebulizati on RxNorm: 1352021 3 Milliliter(s) INH QID 09/23/2014 08/09/2016 Inactive Ventolin HFA 90 mcg/actuation aerosol inhaler RxNorm: 336103 2 Puff(s) INH QID as needed for shortness of breath 09/21/2014 12/29/2015 Inactive [AttnRPh: Saving apply/adjudicate RxGRP:SG20 RxBIN:[id number] RxPCN: ID#:[id number]] promethazine-codeine 6.25 mg-10 mg/5 mL syrup RxNorm: 564164 1 Teaspoon(s) PO QHS as needed for cough 09/08/2014 09/20/2014 Inactive prednisone 20 mg tablet RxNorm: 416037 1 Tablet(s) PO BID 09/02/2014 09/08/2014 Inactive promethazine-codeine 6.25 mg-10 mg/5 mL syrup RxNorm: 813203 1 Teaspoon(s) PO Q4H 09/02/2014 09/20/2014 Inactive doxycycline monohydrate 100 mg capsule RxNorm: 850592 1 Capsule (s) PO BID 09/02/2014 09/07/2014 Inactive Tessalon Perles 100 mg capsule RxNorm: 917756 1 Capsule (s) PO TID as needed for cough 08/31/2014 09/20/2014 Inactive Actos 15 mg tablet RxNorm: 220453 1 Tablet(s) PO QAM 1 Tablet(s ) PO QAM 08/26/2014 09/20/2014 Inactive loratadine 10 mg tablet RxNorm: 866693 1 Tablet(s) PO QD for dr saenz 08/26/2014 10/26/2014 Inactive Zithromax 500 mg tablet RxNorm: 686286 1 Tablet(s) PO QD 08/25/2014 1 11/01/2013 Inactive Zithromax 500 mg tablet RxNorm: 205721 1 Tablet(s) PO QD 08/25/2014 1 10/25/2013 Inactive Trazadone 75mg Tablet RxNorm: 1 Tablet(s) PO QHS 08/10/20142018 Inactive Zocor 20 mg tablet RxNorm: 211988 1 Tablet(s) PO QD 08/10/20142014 Inactive Trazadone 75mg Tablet RxNorm: 1 Tablet(s) PO QHS as need ed for sleep 08/10/2014 10/08/2014 Inactive Celexa 40 mg tablet RxNorm: 288090 1 Tablet(s) PO QD 1 Tablet(s) PO QD 1 Tablet(s) PO QD Generic OKAY 06/09/2014 10/06/2014 Inactive Actos 15 mg tablet RxNorm: 932109 1 Tablet(s) PO QAM 05/12/201408/26 Inactive lisinopril 20 mg tablet RxNorm: 831008 1 Tablet(s) PO QD 05/12/2014 0 10/26/2014 Inactive TAKE ONE TABLET BY MOUTH EVERY DAY;Gener ic For:*PRINIVIL 20 MG TABLET [AttnRPh: Saving apply/adjudicate RxGRP:SG20 RxBIN:[id number] RxPCN: ID#:[id number]] hydrocodone 5 mg-acetaminophen 325 mg tablet RxNorm: 599702 1 Tablet(s) PO TID as needed for pain for severe pain 04/30/2014 08/09/2014 Inactive hydrocodone 5 mg-acetaminophen 325 mg tablet RxNorm: 491640 1 Tablet(s) PO TID as needed for pain for severe pain 04/17/2014 04/29/2014 Inactive doxycycline hyclate 100 mg capsule RxNorm: 802446 1 Capsule(s) PO BID 03/05/2014 03/04/2014 Inactive doxycycline hyclate 100 mg capsule RxNorm: 885679 1 Capsule(s) PO BID 03/05/2014 03/14/2014 Inactive albuterol sulfate 2.5 mg/3 mL (0.083 %) solution for n ebulization RxNorm: 202865 Milliliter(s) INH USE 1 VIAL IN NEBULIZE R EVERY FOUR HOURS NEEDED FOR WHEEZING OR SHORTNESS OF BREATH 03/02/2014 06/29/2015 Inactive Generic For:*PROVENTIL 0.83 MG/ML SOLUTN 06/13/2013 2:04:46 PM Celexa 40 mg tablet RxNorm: 124692 1 Tablet(s) PO QD 1 Tablet(s) PO QD replaces lexapro. Generic OKAY 01/13/2014 06/09/2014 Inactive Actos 15 mg tablet RxNorm: 947365 1 Tablet(s) PO QAM 01/07/201405/12 Inactive lisinopril 20 mg tablet RxNorm: 371971 1 Tablet(s) PO QD 12/08/2013 0 05/12/2014 Inactive TAKE ONE TABLET BY MOUTH EVERY DAY;Gener ic For:*PRINIVIL 20 MG TABLET cefdinir 300 mg capsule RxNorm: 875359 2 Capsule(s) PO QD 11/10/2013 08/09/2014 Inactive cefdinir 300 mg capsule RxNorm: 858162 2 Capsule(s) PO QD 10/09/2013 10/15/2013 Inactive Actos 15 mg tablet RxNorm: 168343 1 Tablet(s) PO QAM 10/09/201301/06 Inactive doxycycline hyclate 100 mg capsule RxNorm: 4135739 1 Capsule(s) PO Q12H 09/18/2013 09/27/2013 Inactive omeprazole 20 mg capsule,delayed release RxNorm: 012627 2 Capsule(s) PO QD TAKE 2 CAPSULES BY MOUTH DAILY 09/03/2013 03/01/2014 Inactive Generi c For:*PRILOSEC [address] Celexa 40 mg tablet RxNorm: 992724 1 Tablet(s) PO QD re places lexapro. Generic OKAY 09/03/2013 01/13/2014 Inactive Symbicort 160 mcg-4.5 mcg/actuation HFA aerosol inhaler RxNo rm: 1551295 2 Puff(s) INH BID 08/13/2013 03/23/2014 Inactive metformin 1,000 mg tablet RxNorm: 737617 1 Tablet(s) PO BID 013 08/12/2013 Inactive TAKE ONE TABLET BY MOUTH TWI CE DAILY;Generic For:GLUCOPHAGE 1,000 MG TABLET 08/27/12 Thank you Actos 15 mg tablet RxNorm: 503559 1 Tablet(s) PO QAM 06/23/201310/09 Inactive lisinopril 20 mg tablet RxNorm: 306961 1 Tablet(s) PO QD 06/23/2013 0 12/08/2013 Inactive TAKE ONE TABLET BY MOUTH EVERY DAY;Gener ic For:*PRINIVIL 20 MG TABLET albuterol sulfate 2.5 mg/3 mL (0.083 %) solution for n ebulization RxNorm: 186813 Solution for Nebulization INH USE 1 VIAL IN NEBULIZER EVERY FOUR HOURS NEEDED FOR WHEEZING OR SHORTNESS OF BREATH 06/16/2013 03/01/2014 Inactive Generic For:*PROVENTIL 0.83 MG/ML SOLUTN 06/13/2013 2:04:46 PM prednisone 10 mg tablet RxNorm: 627062 1 Tablet(s) PO BID 04/09/2013 04/13/2013 Inactive AndroGel 1.25 gram/actuation (1%) Transdermal Gel Pump RxNorm: 2 31123 TD 04/09/2013 08/09/2014 Inactive APPLY 4 PUMPS OF GEL AT BEDTIME DIRECTED; (Appended: Controlled substance eRx refill - RxReferenceNumber: [id number]) azithromycin 250 mg tablet RxNorm: 900522 2 Tablet(s) PO QD 013 04/16/2013 Inactive Amaryl 2 mg tablet RxNorm: 329431 1 Tablet(s) PO BID N eeds appt in 1 month (around March 21) 02/18/2013 08/12/2013 Inactive Amaryl 2 mg tablet RxNorm: 036265 1 Tablet(s) PO BID 02/18/201302/17 Inactive metformin 1,000 mg tablet RxNorm: 892005 1 Tablet(s) PO BID 013 07/27/2013 Inactive TAKE ONE TABLET BY MOUTH TWI CE DAILY;Generic For:GLUCOPHAGE 1,000 MG TABLET 08/27/12 Thank you Actos 15 mg tablet RxNorm: 658709 1 Tablet(s) PO QAM 02/04/201306/03 Inactive albuterol sulfate 2.5 mg/3 mL (0.083 %) Neb Solution RxNorm: 571484 1 Unit Dose INH Q4H prn wheezing or shortness of breath 01/30/2013 06/15/2013 Inac tive Medrol (Gui) 4 mg tablets in a dose pack RxNorm: 736135 Tablet(s) PO as directed 01/20/2013 07/15/2013 Inactive cefdinir 300 mg capsule RxNorm: 474039 1 Capsule(s) PO BID anti biotic 01/20/2013 01/29/2013 Inactive lisinopril 20 mg tablet RxNorm: 424566 Tablet(s) PO 01/13/20132012 Inactive TAKE ONE TABLET BY MOUTH EVERY DAY;Gener ic For:*PRINIVIL 20 MG TABLET citalopram 40 mg tablet RxNorm: 453190 Tablet(s) PO 01/13/20132013 Inactive TAKE ONE (1) TABLET BY MOUTH DAILY;Gener ic For:CELEXA 40 MG TABLET omeprazole 20 mg capsule,delayed release RxNorm: 669496 Capsule(s) PO TAKE 2 CAPSULES BY MOUTH DAILY 11/15/2012 09/03/2013 Inactive Generic For:*PRILOSEC [address] amoxicillin 875 mg tablet RxNorm: 393005 1 Tablet(s) PO BID 013 10/28/2012 Inactive Actos 30 mg tablet RxNorm: 556446 1 Tablet(s) PO QD 09/23/20122011 Inactive Actos 15 mg tablet RxNorm: 341413 1 Tablet(s) PO QAM 09/23/201209/22 Inactive Actos 15 mg tablet RxNorm: 059034 1 Tablet(s) PO QAM 09/23/201202/04 Inactive prednisone 20 mg tablet RxNorm: 351200 1 Tablet(s) PO BID 08/28/2012 09/03/2012 Inactive doxycycline hyclate 100 mg tablet RxNorm: 5998016 1 Tablet(s) PO BI D 08/28/2012 09/06/2012 Inactive metformin 1,000 mg tablet RxNorm: 450331 Tablet(s) PO 08/27/201201/22 Inactive TAKE ONE TABLET BY MOUTH TWICE DAILY;Gen joshua For:GLUCOPHAGE 1,000 MG TABLET 08/27/12 Thank you citalopram 40 mg tablet RxNorm: 842089 Tablet(s) PO 07/30/20122012 Inactive TAKE ONE (1) TABLET BY MOUTH DAILY;Gener ic For:CELEXA 40 MG TABLET lisinopril 20 mg tablet RxNorm: 159951 Tablet(s) PO 07/30/20122012 Inactive TAKE ONE TABLET BY MOUTH EVERY DAY;Gener ic For:*PRINIVIL 20 MG TABLET AndroGel 1.25 gram/actuation (1%) Transdermal Gel Pump RxNor m: [id number] Gel in Metered-Dose Pump TD 07/09/2012 04/08/2013 Inactive APPLY 4 PUM PS OF GEL AT BEDTIME DIRECTED;WC (Appended: Controlled substance eRx refill - RxReferenceNumber: [id number]) citalopram 40 mg tablet RxNorm: 182722 Tablet(s) PO 07/01/20122011 Inactive TAKE ONE (1) TABLET BY MOUTH DAILY;Gener ic For:CELEXA 40 MG TABLET metformin 1,000 mg tablet RxNorm: 101975 1 Tablet(s) PO BID 012 08/25/2012 Inactive TAKE 1 TABLET BY MOUTH TWICE DAILY;Generic For:GLUCOPHAGE 1,000 MG TABLET meclizine 25 mg Tab RxNorm: 512192 1 Tablet(s) PO QID prn dizziness 05/09/2012 05/18/2012 Inactive lisinopril 20 mg tablet RxNorm: 424524 Tablet(s) PO QD 04/22/2012 Inactive TAKE ONE (1) TABLET BY MOUTH DAILY;Gener ic For:*PRINIVIL 20 MG TABLET metformin 1,000 mg tablet RxNorm: 790864 Tablet(s) PO 03/19/20120 12/2011 Inactive TAKE 1 TABLET BY MOUTH TWICE DAILY;Gener ic For:GLUCOPHAGE 1,000 MG TABLET cefdinir 300 mg Cap RxNorm: 371695 1 Capsule(s) PO BID 11/28/2011 Inactive cefdinir 300 mg Cap RxNorm: 233235 1 Capsule(s) PO BID 11/01/2011 Inactive citalopram 40 mg tablet RxNorm: 371237 Tablet(s) PO 10/30/20112011 Inactive TAKE ONE (1) TABLET BY MOUTH DAILY;Gener ic For:CELEXA 40 MG TABLET cefdinir 300 mg Cap RxNorm: 828835 1 Capsule(s) PO BID 10/02/2011 Inactive metformin 1,000 mg Tab RxNorm: 211743 1 Tablet(s) PO BID 09/28/2011 0 01/25/2012 Inactive citalopram 40 mg Tab RxNorm: 060012 1 Tablet(s) PO QD 09/28/201111/2011 Inactive omeprazole 20 mg capsule,delayed release RxNorm: 147713 2 Capsu le(s) PO QD 09/28/2011 03/25/2012 Inactive lisinopril 20 mg Tab RxNorm: 943162 Tablet(s) PO 08/21/2011 04/21/2012 Inactive TAKE ONE (1) TABLET BY MOUTH DAILY;Generic For:*PRINIVIL 20 MG TABLET AndroGel 1.25 gram/actuation (1%) Transdermal Gel Pump RxNor m: [id number] Gel in Metered-dose Pump TD 08/21/2011 07/09/2012 Inactive APPLY 4 PUM PS OF GEL AT BEDTIME DIRECTED (Appended: Controlled substance eRx refill - RxReferenceNumber: [id number]) Lantus Solostar 100 unit/mL (3 mL) Sub-Q Insulin Pen RxNorm: 747341 30 Unit(s) SQ QD 06/20/2011 05/08/2012 Inactive Lantus Solostar 100 unit/mL (3 mL) Sub-Q Insulin Pen RxNorm: 964399 30 Unit(s) SQ QD 06/19/2011 06/19/2011 Inactive metformin 1,000 mg Tab RxNorm: 037805 1 Tablet(s) PO BID 05/12/2011 1 11/09/2010 Inactive citalopram 40 mg Tab RxNorm: 729074 1 Tablet(s) PO QD 03/06/201105/2011 Inactive metformin 1,000 mg Tab RxNorm: 862505 1 Tablet(s) PO BID 12/27/2010 0 04/25/2011 Inactive lisinopril 20 mg Tab RxNorm: 359861 Tablet(s) PO TAKE 1 TABLET BY MOUTH EVERY DAY;Generic For:*PRINIVIL 20 MG TABLET 12/26/2010 08/20/2011 Inactive Ceftin 500 mg Tab RxNorm: 670818 1 Tablet(s) PO BID 12/19/20102010 Inactive omeprazole 20 mg Cap, Delayed Release RxNorm: 159660 2 Capsule( s) PO QD 09/13/2010 03/11/2011 Inactive Byetta 10 mcg/0.04 mL per dose Sub-Q Pen Injector RxNorm: 84 7913 1 Unit Dose SQ BID 09/07/2010 10/06/2010 Inactive Celexa 40 mg tablet RxNorm: 860909 1 Tablet(s) PO QD re places lexapro. Generic OKAY 08/09/2010 02/04/2011 Inactive Actos 30 mg Tab RxNorm: 256119 1 Tablet(s) PO QD 08/09/2010 04/02/2011 Inactive lisinopril 20 mg Tab RxNorm: 868605 1 Tablet(s) PO QD 08/09/201011/22 Inactive metformin 1,000 mg Tab RxNorm: 459386 1 Tablet(s) PO BID 08/09/2010 0 12/06/2010 Inactive Metformin 1,000 mg Tab RxNorm: 943117 1 Tablet(s) PO BID 04/26/2010 0 04/25/2010 Inactive metformin 1,000 mg Tab RxNorm: 437396 1 Tablet(s) PO BID 04/26/2010 1 Inactive Lomotil 2.5 mg-0.025 mg Tab RxNorm: 3185394 1 Tablet(s) PO TID 1-2 TABS THREE TIMES DAILY 04/05/2010 04/07/2010 Inactive Mupirocin 2 % Topical Cream RxNorm: 281045 TOP BID 04/05/201003/25 Inactive lisinopril 20 mg Tab RxNorm: 430933 1 Tablet(s) PO QD 03/29/201010/2009 Inactive Actos 30 mg Tab RxNorm: 054771 1 Tablet(s) PO QD 03/29/2010 07/26/2010 Inactive Lisinopril 20 mg Tab RxNorm: 222914 1 Tablet(s) PO QD 02/27/201001/2010 Inactive Actos 30 mg Tab RxNorm: 010064 1 Tablet(s) PO QD 02/14/2010 03/28/2010 Inactive Celexa 40 mg Tab RxNorm: 559094 1 Tablet(s) PO QD replaces lexapro 01/13/2010 07/11/2010 Inactive Cyclobenzaprine 10 mg Tab RxNorm: 999548 1 Tablet(s) PO TID prn spasm 12/23/2009 01/21/2010 Inactive Cyclobenzaprine 10 mg Tab RxNorm: 732321 1 Tablet(s) PO TID 010 12/22/2009 Inactive Hydrocodone-Acetaminophen 7.5 mg-750 mg Tab RxNorm: 563713 1 Ta blet(s) PO Q4-6H 12/23/2009 12/22/2009 Inactive aspirin 81 mg tablet RxNorm: 930146 1 Tablet(s) PO QD No Start Date Active isosorbide mononitrate ER 60 mg tablet,extended release 24 h r RxNorm: 180960 1 Tablet(s) PO QD No Start Date Active amlodipine 5 mg tablet RxNorm: 505998 1 Tablet(s) PO QD No Start Date Active Vitamin D3 1,000 unit tablet RxNorm: 084744 3 Tablet(s) PO QD No St art Date 10/26/2014 Inactive Lexapro 20 mg Tab RxNorm: 689727 1 Tablet(s) PO QD No Start Date 12/24 Inactive loperamide 2 mg tablet RxNorm: 397435 Tablet(s) PO PRN No Start Date 06/07/2016 Inactive Levemir FlexTouch U-100 Insulin 100 unit/mL (3 mL) sub cutaneous pen RxNorm: 432964 22 Unit(s) SQ QD No Start Date 12/21/2019 Inactive Janumet 50 mg-1,000 mg Tab RxNorm: 755993 1 Tablet(s) PO BID No Sta rt Date 01/12/2010 Inactive Levemir U-100 Insulin 100 unit/mL subcutaneous solution RxNo rm: 198583 10 Unit(s) SQ QHS No Start Date 12/08/2018 Inactive Medrol (Gui) 4 mg tablets in a dose pack RxNorm: 804933 Tablet(s) PO Use as directed No Start Date 12/22/2018 Inactive aspirin 325 mg tablet RxNorm: 902638 1 Tablet(s) PO QD No Start Date 08/09/2016 Inactive Efudex 5 % Topical Cream RxNorm: 065948 Application TOP QD prn fto skin lesion No Start Date 08/12/2013 Inactive nitroglycerin 0.4 mg sublingual tablet RxNorm: 138251 Tablet(s) SL as needed No Start Date 12/18/2018 Inactive levofloxacin 500 mg tablet RxNorm: 533837 1 Tablet(s) PO QD No Star t Date 08/06/2018 Inactive ferrous sulfate 325 mg (65 mg iron) tablet RxNorm: 304229 1 Tab let(s) PO QHS No Start Date 04/16/2017 Inactive fluorouracil 5 % topical cream RxNorm: 011738 1 TOP No Start James e 08/06/2018 Inactive Vitamin D3 1,000 unit capsule RxNorm: 854595 1 Capsule(s) PO QD No Start Date 02/03/2018 Inactive Hydrocodone-Acetaminophen 7.5 mg-750 mg Tab RxNorm: 433995 1 Ta blet(s) PO PRN No Start Date 08/09/2014 Inactive pantoprazole 40 mg tablet,delayed release RxNorm: 057775 1 Tabl et(s) PO QD No Start Date 01/22/2018 Inactive omeprazole 20 mg Cap, Delayed Release RxNorm: 218928 2 Capsule( s) PO QD No Start Date 09/12/2010 Inactive DuoNeb 0.5 mg-3 mg(2.5 mg base)/3 mL solution for nebulizati on RxNorm: 1215641 INH Q4H as needed No Start Date 10/22/2018 Inactive Lyrica 75 mg capsule RxNorm: 503465 2 Capsule(s) PO QHS No Start Da te 03/09/2019 Inactive isosorbide mononitrate ER 30 mg tablet,extended release 24 h r RxNorm: 329701 1 Tablet(s) PO QD No Start Date 12/08/2018 Inactive Tradjenta 5 mg tablet RxNorm: 8109251 1 Tablet(s) PO QD No Start Da te 08/09/2016 Inactive Tudorza Pressair 400 mcg/actuation breath activated RxNorm: 0123044 1 Puff(s) INH BID No Start Date 06/17/2017 Inactive Lantus Solostar 100 unit/mL (3 mL) Sub-Q Insulin Pen RxNorm: 284631 30 Unit(s) SQ QD No Start Date 06/18/2011 Inactive Requip 4 mg tablet RxNorm: 209803 1 Tablet(s) PO BID No Start Date Inactive Symbicort 160 mcg-4.5 mcg/actuation HFA aerosol inhaler RxNo rm: 6190798 2 Puff(s) INH BID No Start Date 07/11/2018 Inactive atorvastatin 40 mg tablet RxNorm: 082954 1 Tablet(s) PO QD No Start Date 12/18/2018 Inactive tramadol 50 mg tablet RxNorm: 428663 1 Tablet(s) PO TID as needed for pain (take alone with two extra strength tylenol) No Start Date 01/16/2019 Inactive Symbicort 160 mcg-4.5 mcg/actuation HFA aerosol inhaler RxNo rm: 5288324 2 Puff(s) INH BID No Start Date 08/12/2013 Inactive Vitamin D3 5,000 unit tablet RxNorm: 969424 1 Tablet(s) PO QD No St art Date 05/08/2019 Inactive albuterol sulfate 2.5 mg/3 mL (0.083 %) Neb Solution RxNorm: 553622 1 Unit Dose INH Q4H prn wheezing or shortness of breath No Start Date 01/29/2013 Inac tive Ranexa 500 mg tablet,extended release RxNorm: 916979 1 Tablet(s ) PO BID No Start Date 02/03/2018 Inactive Advair Diskus 500 mcg-50 mcg/dose powder for inhalation RxNo rm: 6043251 1 Puff(s) INH BID No Start Date 08/09/2016 Inactive clopidogrel 75 mg tablet RxNorm: 285740 1 Tablet(s) PO QD No Start Date 05/01/2018 Inactive metformin 1,000 mg Tab RxNorm: 516126 1 Tablet(s) PO BID No Start D ate 08/12/2013 Inactive Silenor 3 mg tablet RxNorm: 373406 1 Tablet(s) PO QHS No Start Date 0 04/04/2017 Inactive Medrol (Gui) 4 mg tablets in a dose pack RxNorm: 751227 Tablet(s) PO as directed No Start Date 01/19/2013 Inactive Requip 4 mg tablet RxNorm: 401848 1 Tablet(s) PO BID No Start Date Inactive clopidogrel 75 mg tablet RxNorm: 551772 1 Tablet(s) PO QD No Start Date 02/03/2018 Inactive Tradjenta 5 mg tablet RxNorm: 8012155 1 Tablet(s) PO QD No Start Da te 02/03/2018 Inactive ProAir HFA 90 mcg/Actuation Aerosol Inhaler RxNorm: 632994 2 Pu ff(s) INH PRN No Start Date 07/09/2012 Inactive Tessalon Perles 100 mg capsule RxNorm: 499433 1 Capsule (s) PO TID as needed for cough No Start Date 08/30/2014 Inactive ferrous sulfate 325 mg (65 mg iron) tablet RxNorm: 846490 1 Tab let(s) PO QD No Start Date 05/08/2019 Inactive pioglitazone 15 mg tablet RxNorm: 246250 1 Tablet(s) PO QD No Start Date 09/20/2014 Inactive Lexapro Oral RxNorm: Oral No Start Date 12/13/2009 Inactive Breo Ellipta 100 mcg-25 mcg/dose powder for inhalation RxNor m: 8210663 1 Puff(s) INH BID No Start Date 05/31/2015 Inactive Tylenol Extra Strength 500 mg tablet RxNorm: 004067 2 T ablet(s) PO QHS along with ropironole No Start Date 12/18/2018 Inactive tramadol 50 mg tablet RxNorm: 559309 1 Tablet(s) PO QID as need ed for pain No Start Date 12/24/2018 Inactive cyclobenzaprine 10 mg Tab RxNorm: 450150 Oral No Start Date 12/22 Inactive Levemir FlexTouch 100 unit/mL (3 mL) subcutaneous insulin pe n RxNorm: 311962 10 Unit(s) SQ QD No Start Date 03/08/2016 Inactive amlodipine 5 mg tablet RxNorm: 239298 1 Tablet(s) PO QD No Start Da te 08/09/2016 Inactive Novolog 100 unit/mL subcutaneous solution RxNorm: 538988 10 Uni t(s) SQ AC No Start Date 08/12/2017 Inactive Levemir FlexTouch 100 unit/mL (3 mL) subcutaneous insulin pe n RxNorm: 774521 25 Unit(s) SQ QPM No Start Date 08/06/2018 Inactive Farxiga 5 mg tablet RxNorm: 7711857 1 Tablet(s) PO QD No Start Date 0 10/05/2014 Inactive DuoNeb 0.5 mg-3 mg(2.5 mg base)/3 mL solution for nebulizati on RxNorm: 9379711 inhalation No Start Date 09/23/2014 Inactive Doxycycline 100 mg Cap RxNorm: 490222 1 Capsule(s) PO BID No Start Date 12/18/2010 Inactive Vitamin B12 1000mcg Tablet RxNorm: 1 Tablet(s) PO QD No Start Date 02/03/2018 Inactive Hydrocodone-Acetaminophen 7.5 mg-750 mg Tab RxNorm: 177267 1 Ta blet(s) PO Q6-8H No Start Date 12/22/2009 Inactive Xigduo XR 5 mg-1,000 mg tablet,extended release RxNorm: 1593 833 1 Tablet(s) PO QD No Start Date 05/31/2015 Inactive cyanocobalamin (vit B-12) 1,000 mcg/mL injection solution Rx Norm: 858076 1 injection weekly for 4 weeks 1 Milliliter(s) Inj No Start Date 05/08/2019 Inactive AndroGel 1.25 g/Actuation (1%) Transdermal Gel Pump RxNorm: 6698633 TD Apply 4pumps daily No Start Date 08/21/2011 Inactive Actoplus MET 15 mg-850 mg Tab RxNorm: 625957 1 Tablet(s) PO BID No Start Date 12/18/2010 Inactive Amaryl 2 mg tablet RxNorm: 148114 1 Tablet(s) PO BID No Start Date Inactive Levemir FlexTouch 100 unit/mL (3 mL) subcutaneous insulin pe n RxNorm: 831704 20 Unit(s) SQ QD No Start Date 06/12/2016 Inactive Symbicort 160 mcg-4.5 mcg/actuation HFA aerosol inhaler RxNo rm: 9897555 2 Puff(s) INH BID No Start Date 02/03/2018 Inactive Symbicort 160 mcg-4.5 mcg/Actuation Inhalation HFA Aer osol Inhaler RxNorm: 7954209 2 INH BID No Start Date 12/18/2010 Inactive Farxiga 5 mg tablet RxNorm: 4500640 1 Tablet(s) PO QD No Start Date 0 03/01/2015 Inactive magnesium oxide 400 mg (241.3 mg magnesium) tablet RxNorm: 1 37284 1 Tablet(s) PO QHS No Start Date 05/08/2019 Inactive Tradjenta 5 mg tablet RxNorm: 8167407 2 Tablet(s) PO QD No Start Da te 07/21/2015 Inactive Levemir FlexTouch U-100 Insulin 100 unit/mL (3 mL) sub cutaneous pen RxNorm: 207919 40 Unit(s) SQ QD No Start Date 08/06/2018 Inactive Sinemet CR 50 mg-200 mg tablet,extended release RxNorm: 8343 41 1 Tablet(s) PO QHS No Start Date 09/24/2017 Inactive metoprolol tartrate 25 mg tablet RxNorm: 540043 1/2 Tablet(s) P O BID No Start Date 02/03/2018 Inactive Requip 4 mg tablet RxNorm: 311454 1 Tablet(s) PO QHS No Start Date Inactive Ventolin HFA 90 mcg/actuation aerosol inhaler RxNorm: 056462 2 Puff(s) INH Q4H as needed No Start Date 04/22/2018 Inactive B12 5,000 mcg-100 mcg sublingual lozenge RxNorm: 560662 IM as d irected No Start Date 05/08/2019 Inactive ropinirole 1 mg tablet RxNorm: 039999 1 Tablet(s) PO QHS No Start D ate 08/06/2018 Inactive Percocet 5 mg-325 mg tablet RxNorm: 5461018 1 Tablet(s) PO Q4H as needed for pain (Dr Rizzo) No Start Date 10/22/2018 Inactive hydrocodone 5 mg-acetaminophen 325 mg tablet RxNorm: 810806 1 Tablet(s) PO TID as needed for pain for severe pain No Start Date 04/16/2014 Inactive scopolamine 1.5 mg 72 hr Transderm Patch RxNorm: 574175 Application TD Q72H for dizziness No Start Date 08/12/2013 Inactive ipratropium-albuterol 0.5 mg-3 mg(2.5 mg base)/3 mL ne bulization soln RxNorm: 4597818 1 Unit Dose INH Q4H No Start Date 01/16/2019 Inactive Medication Administered No Medication Administered data Immunizations Vaccine Codes Date Status Influenza CVX: 135 08/07/2019 Complete Pneumococcal CVX: 33 07/24/2017 Complete Influenza CVX: 135 06/13/2016 Complete Pneumococcal CVX: 133 06/13/2016 Complete Influenza CVX: 141 07/10/2012 Pneumovax Unknown 07/10/2012 Results Observation Observation Code Item Item Code Result Date S [facility] Location COMPLETE BLOOD COUNT [id number] WBC 5.5 10e9/L 06/17/20 19 Unknown COMPLETE BLOOD COUNT [id number] RBC 3.92 10e12/L 2018 Unknown COMPLETE BLOOD COUNT 0961603 HEMOGLOBIN 10.9 g/dL 06/17/20 19 Unknown COMPLETE BLOOD COUNT 6974884 HEMATOCRIT 34.8 % 06/17/20 19 Unknown COMPLETE BLOOD COUNT 2823902 MCV 88.8 fL 9 Unknown COMPLETE BLOOD COUNT 8459066 MCH 27.8 pg 9 Unknown COMPLETE BLOOD COUNT 1959004 MCHC 31.3 g/dL 9 Unknown COMPLETE BLOOD COUNT 9349002 PLATELET COUNT 239 10e9/L Unknown COMPLETE BLOOD COUNT 6053503 Mean Plt Volume 10.0 fL Unknown COMPLETE BLOOD COUNT 1558580 Neut Auto 68.0 % 9 Unknown COMPLETE BLOOD COUNT 6952454 Lymph Auto 14.8 % 06/17/20 19 Unknown COMPLETE BLOOD COUNT 0425264 Divide Auto 13.1 % 9 Unknown COMPLETE BLOOD COUNT 3646957 RDW 14.7 % 9 Unknown COMPLETE BLOOD COUNT 8942064 Eos Auto 3.6 % 9 Unknown COMPLETE BLOOD COUNT 3702085 Baso Auto 0.5 % 9 Unknown COMPLETE BLOOD COUNT 6254570 Neutrophil Abs 3.74 10e9/L Unknown COMPLETE BLOOD COUNT 2685385 Lymphocyte Abs 0.81 10e9/L Unknown COMPLETE BLOOD COUNT 8544024 Monocyte Abs 0.72 10e9/L 05/26 Unknown COMPLETE BLOOD COUNT 2155329 Eosinophil Abs 0.20 10e9/L Unknown COMPLETE BLOOD COUNT 7900705 RDW-SD 46.4 fL 9 Unknown COMPLETE BLOOD COUNT 8575436 Basophil Abs 0.03 10e9/L 05/26 Unknown IRON 36127 Iron 36 ug/dL 06/17/2019 Unknown VITAMIN B 12 00727 VITAMIN B12 540 pg/mL 06/17/2019 Unkn own GFR CALC 4995738 GFR Non Afr Amr 59 mL/min 06/17/2019 Unk nown GFR CALC 3068256 GFR Afr Amr >60 mL/min 06/17/2019 Unknow n ERYTHROCYTE SEDIMENTATION RATE 74188 Sed Rate 34 mm/hr 06/17/2019 Unknown THYROID STIMULATING HORMONE 94139 TSH 2.217 uIU/mL 06/17/2019 Unknown COMPREHENSIVE METABOLIC 91752 AST 12 U/L 2018 Unknown COMPREHENSIVE METABOLIC 07949 ALT 11 U/L 2018 Unknown COMPREHENSIVE METABOLIC 81452 BUN 17 mg/dL 2018 Unknown COMPREHENSIVE METABOLIC 08930 ALBUMIN 3.9 g/dL 2018 Unknown COMPREHENSIVE METABOLIC 08204 CHLORIDE 103 mmol/L 06/17 Unknown COMPREHENSIVE METABOLIC 76304 Bili Total 0.4 mg/dL 06/17 Unknown COMPREHENSIVE METABOLIC 94836 ALK PHOS 51 U/L 2018 Unknown COMPREHENSIVE METABOLIC 59825 SODIUM 140 mmol/L 06/17 Unknown COMPREHENSIVE METABOLIC 03147 CREATININE 1.20 mg/dL 05/26 Unknown COMPREHENSIVE METABOLIC 06285 CALCIUM 8.9 mg/dL 2018 Unknown COMPREHENSIVE METABOLIC 69142 POTASSIUM 4.5 mmol/L 06/17 Unknown COMPREHENSIVE METABOLIC 22186 Total Protein 6.1 g/dL Unknown COMPREHENSIVE METABOLIC 16955 Glucose 108 mg/dL 2018 Unknown COMPREHENSIVE METABOLIC 58108 Bicarbonate 27 mmol/L 05/26 Unknown COMPREHENSIVE METABOLIC 03231 AGAP 10 mmol/L 2018 Unknown FERRITIN 06127 FERRITIN 35.5 ng/mL 05/08/2019 Unknown VITAMIN D TOTAL (25 HYDROXY) 63528 Vitamin D 25 OH 26.0 ng/mL 05/08/2019 Unknown GLYCOSYLATED HEMOGLOBIN TEST 86870 Hgb A1c 51943-9 8.2 % 0 05/08/2019 Unknown MEAN GLUC 9449145 Calc Mean Gluc 189 mg/dL 05/08/2019 Unkn own GFR CALC 8617835 GFR Non Afr Amr >60 mL/min 05/08/2019 Un known GFR CALC 6196665 GFR Afr Amr >60 mL/min 05/08/2019 Unknow n VITAMIN B 12 73226 VITAMIN B12 197 pg/mL 05/08/2019 Unkn own IRON 42351 Iron 34 ug/dL 05/08/2019 Unknown COMPLETE BLOOD COUNT 5541827 WBC 6.9 10e9/L 05/08/20 19 Unknown COMPLETE BLOOD COUNT 0290236 RBC 3.95 10e12/L 2018 Unknown COMPLETE BLOOD COUNT 3264598 HEMOGLOBIN 11.1 g/dL 05/08/20 19 Unknown COMPLETE BLOOD COUNT 7507849 HEMATOCRIT 34.9 % 05/08/20 19 Unknown COMPLETE BLOOD COUNT 7747991 MCV 88.4 fL 9 Unknown COMPLETE BLOOD COUNT 7454692 MCH 28.1 pg 9 Unknown COMPLETE BLOOD COUNT 6479281 MCHC 31.8 g/dL 9 Unknown COMPLETE BLOOD COUNT 2430714 PLATELET COUNT 217 10e9/L Unknown COMPLETE BLOOD COUNT 1359242 Mean Plt Volume 9.6 fL Unknown COMPLETE BLOOD COUNT 7990642 Neut Auto 77.6 % 9 Unknown COMPLETE BLOOD COUNT 8560488 Lymph Auto 10.7 % 05/08/20 19 Unknown COMPLETE BLOOD COUNT 1413218 Divide Auto 10.4 % 9 Unknown COMPLETE BLOOD COUNT 9038181 Eos Auto 1.2 % 9 Unknown COMPLETE BLOOD COUNT 6621185 RDW 14.7 % 9 Unknown COMPLETE BLOOD COUNT 7652635 Baso Auto 0.1 % 9 Unknown COMPLETE BLOOD COUNT 5818397 Neutrophil Abs 5.35 10e9/L Unknown COMPLETE BLOOD COUNT 2917466 Lymphocyte Abs 0.74 10e9/L Unknown COMPLETE BLOOD COUNT 1148522 Monocyte Abs 0.72 10e9/L 04/24 Unknown COMPLETE BLOOD COUNT 0937836 Eosinophil Abs 0.08 10e9/L Unknown COMPLETE BLOOD COUNT 3092055 RDW-SD 46.6 fL 9 Unknown COMPLETE BLOOD COUNT 6807620 Basophil Abs 0.01 10e9/L 04/24 Unknown COMPREHENSIVE METABOLIC 74452 AST 13 U/L 2018 Unknown COMPREHENSIVE METABOLIC 59422 ALT 9 U/L 2018 Unknown COMPREHENSIVE METABOLIC 19788 BUN 18 mg/dL 2018 Unknown COMPREHENSIVE METABOLIC 67277 ALBUMIN 4.3 g/dL 2018 Unknown COMPREHENSIVE METABOLIC 30252 CHLORIDE 99 mmol/L 2018 Unknown COMPREHENSIVE METABOLIC 40589 Bili Total 0.4 mg/dL 05/08 Unknown COMPREHENSIVE METABOLIC 33848 ALK PHOS 48 U/L 2018 Unknown COMPREHENSIVE METABOLIC 96467 SODIUM 137 mmol/L 05/08 Unknown COMPREHENSIVE METABOLIC 01891 CREATININE 0.79 mg/dL 04/24 Unknown COMPREHENSIVE METABOLIC 56325 CALCIUM 9.5 mg/dL 2018 Unknown COMPREHENSIVE METABOLIC 82563 POTASSIUM 4.0 mmol/L 05/08 Unknown COMPREHENSIVE METABOLIC 16680 Total Protein 6.3 g/dL Unknown COMPREHENSIVE METABOLIC 68515 Glucose 232 mg/dL 2018 Unknown COMPREHENSIVE METABOLIC 30310 Bicarbonate 27 mmol/L 04/24 Unknown COMPREHENSIVE METABOLIC 07505 AGAP 11 mmol/L 2018 Unknown GLYCOSYLATED HEMOGLOBIN TEST 29429 Hgb A1c 01004-9 8.9 % 0 12/10/2018 Unknown MEAN GLUC 7268660 Calc Mean Gluc 209 mg/dL 12/10/2018 Unkn own LIPID GROUP 06068 Cholesterol 145 mg/dL 12/09/2018 Unkno wn LIPID GROUP 54783 Triglyceride 235 mg/dL 12/09/2018 Unkn own LIPID GROUP 17774 HDL CHOLESTEROL 40 mg/dL 12/09/2018 U nknown LIPID GROUP 05895 Chol/HDL Ratio 3.62 ratio 12/09/2018 U nknown LIPID GROUP 84153 NON-HDL Chol 105 mg/dL 12/09/2018 Unkn own LIPID GROUP 83129 LDL Cholesterol 58 mg/dL 12/09/2018 U nknown THYROID STIMULATING HORMONE 44805 TSH 1.071 uIU/mL 12/09/2018 Unknown GFR CALC 2000950 GFR Afr Amr >60 mL/min 12/09/2018 Unknow n GFR CALC 7636372 GFR Non Afr Amr >60 mL/min 12/09/2018 Un known COMPLETE BLOOD COUNT 6762560 WBC 7.6 10e9/L 12/10/19 19 Unknown COMPLETE BLOOD COUNT 9910425 RBC 3.97 10e12/L 2018 Unknown COMPLETE BLOOD COUNT 9869256 HEMOGLOBIN 11.4 g/dL 12/10/19 19 Unknown COMPLETE BLOOD COUNT 1803506 HEMATOCRIT 35.8 % 12/10/19 19 Unknown COMPLETE BLOOD COUNT 6492275 MCV 90.2 fL 9 Unknown COMPLETE BLOOD COUNT 4898710 MCH 28.7 pg 9 Unknown COMPLETE BLOOD COUNT 3174781 MCHC 31.8 g/dL 9 Unknown COMPLETE BLOOD COUNT 1417463 PLATELET COUNT 200 10e9/L Unknown COMPLETE BLOOD COUNT 3485019 Mean Plt Volume 10.1 fL Unknown COMPLETE BLOOD COUNT 7614624 Neut Auto 79.0 % 9 Unknown COMPLETE BLOOD COUNT 6195897 Lymph Auto 8.3 % 12/10/19 19 Unknown COMPLETE BLOOD COUNT 3041787 Divide Auto 10.8 % 9 Unknown COMPLETE BLOOD COUNT 5802912 Eos Auto 1.5 % 9 Unknown COMPLETE BLOOD COUNT 2589170 RDW 14.6 % 9 Unknown COMPLETE BLOOD COUNT 4968987 Baso Auto 0.4 % 9 Unknown COMPLETE BLOOD COUNT 7663322 Neutrophil Abs 6.00 10e9/L Unknown COMPLETE BLOOD COUNT 5471693 Lymphocyte Abs 0.63 10e9/L Unknown COMPLETE BLOOD COUNT 7246106 Monocyte Abs 0.82 10e9/L 11/22 Unknown COMPLETE BLOOD COUNT 9761430 Eosinophil Abs 0.11 10e9/L Unknown COMPLETE BLOOD COUNT 4956993 RDW-SD 46.9 fL 9 Unknown COMPLETE BLOOD COUNT 7357560 Basophil Abs 0.03 10e9/L 11/22 Unknown COMPREHENSIVE METABOLIC 89989 AST 11 U/L 2018 Unknown COMPREHENSIVE METABOLIC 29783 ALT 11 U/L 2018 Unknown COMPREHENSIVE METABOLIC 51079 BUN 21 mg/dL 2018 Unknown COMPREHENSIVE METABOLIC 43376 ALBUMIN 4.7 g/dL 2018 Unknown COMPREHENSIVE METABOLIC 05450 CHLORIDE 99 mmol/L 2018 Unknown COMPREHENSIVE METABOLIC 36015 Bili Total 0.4 mg/dL 12/09 Unknown COMPREHENSIVE METABOLIC 14284 ALK PHOS 73 U/L 2018 Unknown COMPREHENSIVE METABOLIC 01124 SODIUM 137 mmol/L 12/09 Unknown COMPREHENSIVE METABOLIC 11612 CREATININE 1.12 mg/dL 11/22 Unknown COMPREHENSIVE METABOLIC 63182 CALCIUM 9.4 mg/dL 2018 Unknown COMPREHENSIVE METABOLIC 04420 POTASSIUM 4.2 mmol/L 12/09 Unknown COMPREHENSIVE METABOLIC 02475 Total Protein 6.8 g/dL Unknown COMPREHENSIVE METABOLIC 48233 Glucose 194 mg/dL 2018 Unknown COMPREHENSIVE METABOLIC 69682 Bicarbonate 30 mmol/L 11/22 Unknown COMPREHENSIVE METABOLIC 31576 AGAP 8 mmol/L 2018 Unknown FREE T4 73300 T4 Free 0.86 ng/dL 12/09/2018 Unknown COMPLETE BLOOD COUNT 7983902 WBC 6.8 10e9/L 04/17/20 17 Unknown COMPLETE BLOOD COUNT 9743212 RBC 3.86 10e12/L 2016 Unknown COMPLETE BLOOD COUNT 7677127 HEMOGLOBIN 9.8 g/dL 04/17/20 17 Unknown COMPLETE BLOOD COUNT 9206406 HEMATOCRIT 31.1 % 04/17/20 17 Unknown COMPLETE BLOOD COUNT 8580001 MCV 80.6 fL 7 Unknown COMPLETE BLOOD COUNT 6687491 MCH 25.4 pg 7 Unknown COMPLETE BLOOD COUNT 2913819 MCHC 31.5 g/dL 7 Unknown COMPLETE BLOOD COUNT 3157748 PLATELET COUNT 247 10e9/L Unknown COMPLETE BLOOD COUNT 3534807 Mean Plt Volume 9.7 fL Unknown COMPLETE BLOOD COUNT 3574354 Neut Auto 74.1 % 7 Unknown COMPLETE BLOOD COUNT 0284425 Lymph Auto 12.0 % 04/17/20 17 Unknown COMPLETE BLOOD COUNT 4517447 Divide Auto 10.8 % 7 Unknown COMPLETE BLOOD COUNT 4792651 RDW 15.9 % 7 Unknown COMPLETE BLOOD COUNT 2046629 Eos Auto 2.5 % 7 Unknown COMPLETE BLOOD COUNT 4949164 Baso Auto 0.6 % 7 Unknown COMPLETE BLOOD COUNT 4227597 Neutrophil Abs 5.04 10e9/L Unknown COMPLETE BLOOD COUNT 3659575 Lymphocyte Abs 0.82 10e9/L Unknown COMPLETE BLOOD COUNT 2243584 Monocyte Abs 0.73 10e9/L 03/25 Unknown COMPLETE BLOOD COUNT 0376568 Eosinophil Abs 0.17 10e9/L Unknown COMPLETE BLOOD COUNT 1151176 RDW-SD 44.4 fL 7 Unknown COMPLETE BLOOD COUNT 2207705 Basophil Abs 0.04 10e9/L 03/25 Unknown MEAN GLUC 4626549 Calc Mean Gluc 223 mg/dL 04/17/2017 Unkn own GFR CALC 6753105 GFR Non Afr Amr >60 mL/min 04/17/2017 Un known GFR CALC 1045559 GFR Afr Amr >60 mL/min 04/17/2017 Unknow n GLYCOSYLATED HEMOGLOBIN TEST 10005 Hgb A1c 59982-3 9.4 % 0 04/17/2017 Unknown IRON 06908 Iron 37 ug/dL 04/17/2017 Unknown VITAMIN B 12 25390 VITAMIN B12 280 pg/mL 04/17/2017 Unkn own THYROID STIMULATING HORMONE 37977 TSH 2.481 uIU/mL 04/17/2017 Unknown COMPREHENSIVE METABOLIC 28211 AST 13 U/L 2016 Unknown COMPREHENSIVE METABOLIC 44383 ALT 12 U/L 2016 Unknown COMPREHENSIVE METABOLIC 14035 BUN 18 mg/dL 2016 Unknown COMPREHENSIVE METABOLIC 71828 ALBUMIN 4.7 g/dL 2016 Unknown COMPREHENSIVE METABOLIC 37121 CHLORIDE 103 mmol/L 04/17 Unknown COMPREHENSIVE METABOLIC 93127 Bili Total 0.4 mg/dL 04/17 Unknown COMPREHENSIVE METABOLIC 41624 ALK PHOS 49 U/L 2016 Unknown COMPREHENSIVE METABOLIC 91416 SODIUM 140 mmol/L 04/17 Unknown COMPREHENSIVE METABOLIC 89691 CREATININE 1.14 mg/dL 03/25 Unknown COMPREHENSIVE METABOLIC 58172 CALCIUM 9.4 mg/dL 2016 Unknown COMPREHENSIVE METABOLIC 48720 POTASSIUM 4.4 mmol/L 04/17 Unknown COMPREHENSIVE METABOLIC 76110 Total Protein 6.7 g/dL Unknown COMPREHENSIVE METABOLIC 55971 Glucose 266 mg/dL 2016 Unknown COMPREHENSIVE METABOLIC 01507 Bicarbonate 25 mmol/L 03/25 Unknown COMPREHENSIVE METABOLIC 86869 AGAP 12 mmol/L 2016 Unknown FERRITIN 52018 FERRITIN 10.0 ng/mL 04/17/2017 Unknown COMPLETE BLOOD COUNT 9563676 WBC 6.8 10e9/L 12/22/19 17 Unknown COMPLETE BLOOD COUNT 4786201 RBC 3.70 10e12/L 2016 Unknown COMPLETE BLOOD COUNT 0481849 HEMOGLOBIN 8.0 g/dL 12/22/19 17 Unknown COMPLETE BLOOD COUNT 2933975 HEMATOCRIT 26.7 % 12/22/19 17 Unknown COMPLETE BLOOD COUNT 0804496 MCV 72.2 fL 7 Unknown COMPLETE BLOOD COUNT 5796522 MCH 21.6 pg 7 Unknown COMPLETE BLOOD COUNT 2455821 MCHC 30.0 g/dL 7 Unknown COMPLETE BLOOD COUNT 6265483 PLATELET COUNT 290 10e9/L Unknown COMPLETE BLOOD COUNT 2464851 Mean Plt Volume 9.3 fL Unknown COMPLETE BLOOD COUNT 6566150 Neut Auto 80.2 % 7 Unknown COMPLETE BLOOD COUNT 3409404 Lymph Auto 9.8 % 12/22/19 17 Unknown COMPLETE BLOOD COUNT 9178576 Divide Auto 8.1 % 7 Unknown COMPLETE BLOOD COUNT 0851963 Eos Auto 1.5 % 7 Unknown COMPLETE BLOOD COUNT 1758042 RDW 17.4 % 7 Unknown COMPLETE BLOOD COUNT 1638528 Baso Auto 0.4 % 7 Unknown COMPLETE BLOOD COUNT 3894172 Neutrophil Abs 5.45 10e9/L Unknown COMPLETE BLOOD COUNT 1380992 Lymphocyte Abs 0.67 10e9/L Unknown COMPLETE BLOOD COUNT 8112693 Monocyte Abs 0.55 10e9/L 11/24 Unknown COMPLETE BLOOD COUNT 0251595 Eosinophil Abs 0.10 10e9/L Unknown COMPLETE BLOOD COUNT 2848522 Basophil Abs 0.03 10e9/L 11/24 Unknown COMPLETE BLOOD COUNT 0196085 RDW-SD 44.1 fL 7 Unknown COMPLETE BLOOD COUNT 8807494 WBC 7.6 10e9/L 12/13/19 17 Unknown COMPLETE BLOOD COUNT 1570036 RBC 3.71 10e12/L 2016 Unknown COMPLETE BLOOD COUNT 4187899 HEMOGLOBIN 8.0 g/dL 12/13/19 17 Unknown COMPLETE BLOOD COUNT 2451513 HEMATOCRIT 27.3 % 12/13/19 17 Unknown COMPLETE BLOOD COUNT 3214533 MCV 73.6 fL 7 Unknown COMPLETE BLOOD COUNT 0192850 MCH 21.6 pg 7 Unknown COMPLETE BLOOD COUNT 4597287 MCHC 29.3 g/dL 7 Unknown COMPLETE BLOOD COUNT 8629341 PLATELET COUNT 330 10e9/L Unknown COMPLETE BLOOD COUNT 6259170 Mean Plt Volume 9.7 fL Unknown COMPLETE BLOOD COUNT 3929319 Neut Auto 73.2 % 7 Unknown COMPLETE BLOOD COUNT 7489621 Lymph Auto 14.5 % 12/13/19 17 Unknown COMPLETE BLOOD COUNT 0633684 Divide Auto 10.5 % 7 Unknown COMPLETE BLOOD COUNT 2122033 RDW 17.3 % 7 Unknown COMPLETE BLOOD COUNT 9629793 Eos Auto 1.3 % 7 Unknown COMPLETE BLOOD COUNT 0427108 Baso Auto 0.5 % 7 Unknown COMPLETE BLOOD COUNT 7627184 Neutrophil Abs 5.56 10e9/L Unknown COMPLETE BLOOD COUNT 4732779 Lymphocyte Abs 1.10 10e9/L Unknown COMPLETE BLOOD COUNT 8392160 Monocyte Abs 0.80 10e9/L 11/23 Unknown COMPLETE BLOOD COUNT 4580579 Eosinophil Abs 0.10 10e9/L Unknown COMPLETE BLOOD COUNT 1341673 RDW-SD 45.2 fL 7 Unknown COMPLETE BLOOD COUNT 9709430 Basophil Abs 0.04 10e9/L 11/23 Unknown IRON 33464 Iron 69 ug/dL 03/09/2016 Unknown VITAMIN B 12 92085 VITAMIN B12 311 pg/mL 03/09/2016 Unkn own MEAN GLUC 4683158 Mean Glucose 260 mg/dL 03/07/2016 Unknow n GLYCOSYLATED HEMOGLOBIN TEST 80034 Hgb A1c 82327-7 10.7 % 0 03/07/2016 Unknown COMPREHENSIVE METABOLIC 05350 AST 14 U/L 2015 Unknown COMPREHENSIVE METABOLIC 78453 ALT 21 U/L 2015 Unknown COMPREHENSIVE METABOLIC 74037 BUN 27 mg/dL 2015 Unknown COMPREHENSIVE METABOLIC 58605 ALBUMIN 4.5 g/dL 2015 Unknown COMPREHENSIVE METABOLIC 95955 CHLORIDE 101 mmol/L 03/06 Unknown COMPREHENSIVE METABOLIC 23520 Bili Total 0.4 mg/dL 03/06 Unknown COMPREHENSIVE METABOLIC 02778 ALK PHOS 49 U/L 2015 Unknown COMPREHENSIVE METABOLIC 45619 SODIUM 136 mmol/L 03/06 Unknown COMPREHENSIVE METABOLIC 41315 CREATININE 1.16 mg/dL 02/22 Unknown COMPREHENSIVE METABOLIC 91516 CALCIUM 9.9 mg/dL 2015 Unknown COMPREHENSIVE METABOLIC 32447 POTASSIUM 4.5 mmol/L 03/06 Unknown COMPREHENSIVE METABOLIC 27489 Total Protein 6.7 g/dL Unknown COMPREHENSIVE METABOLIC 73294 Glucose 245 mg/dL 2015 Unknown COMPREHENSIVE METABOLIC 66999 Bicarbonate 24 mmol/L 02/22 Unknown COMPREHENSIVE METABOLIC 06825 AGAP 11 mmol/L 2015 Unknown THYROID STIMULATING HORMONE 08453 TSH 0.775 uIU/mL 03/06/2016 Unknown TESTOSTERONE TOTAL 99622 Testos Total 96 ng/dL 03/06/20 16 Unknown LIPID GROUP 66473 Cholesterol 146 mg/dL 03/06/2016 Unkno wn LIPID GROUP 50469 Triglyceride 249 mg/dL 03/06/2016 Unkn own LIPID GROUP 18786 HDL CHOLESTEROL 46 mg/dL 03/06/2016 U nknown LIPID GROUP 20390 Chol/HDL Ratio 3.17 ratio 03/06/2016 U nknown LIPID GROUP 04120 NON-HDL Chol 100 mg/dL 03/06/2016 Unkn own LIPID GROUP 32778 LDL Cholesterol 50 mg/dL 03/06/2016 U nknown COMPLETE BLOOD COUNT 5081148 WBC 11.2 10e9/L 016 Unknown COMPLETE BLOOD COUNT 5716277 RBC 3.94 10e12/L 2015 Unknown COMPLETE BLOOD COUNT 0820145 HEMOGLOBIN 11.4 g/dL 03/06/20 16 Unknown COMPLETE BLOOD COUNT 4564069 HEMATOCRIT 33.7 % 03/06/20 16 Unknown COMPLETE BLOOD COUNT 8188173 MCV 85.5 fL 6 Unknown COMPLETE BLOOD COUNT 2948707 MCH 28.9 pg 6 Unknown COMPLETE BLOOD COUNT 6105434 MCHC 33.8 g/dL 6 Unknown COMPLETE BLOOD COUNT 1456537 PLATELET COUNT 204 10e9/L Unknown COMPLETE BLOOD COUNT 9992785 Mean Plt Volume 10.1 fL Unknown COMPLETE BLOOD COUNT 2519082 Neut Auto 85.9 % 6 Unknown COMPLETE BLOOD COUNT 5136983 Lymph Auto 6.8 % 03/06/20 16 Unknown COMPLETE BLOOD COUNT 5769490 Divide Auto 7.0 % 6 Unknown COMPLETE BLOOD COUNT 4242475 RDW 13.7 % 6 Unknown COMPLETE BLOOD COUNT 2114253 Eos Auto 0.1 % 6 Unknown COMPLETE BLOOD COUNT 5629114 Baso Auto 0.2 % 6 Unknown COMPLETE BLOOD COUNT 1084186 Neutrophil Abs 9.62 10e9/L Unknown COMPLETE BLOOD COUNT 9072681 Lymphoctye Abs 0.76 10e9/L Unknown COMPLETE BLOOD COUNT 4900343 Monocyte Abs 0.78 10e9/L 02/22 Unknown COMPLETE BLOOD COUNT 8989298 Eosinophil Abs 0.01 10e9/L Unknown COMPLETE BLOOD COUNT 4101813 RDW-SD 41.9 fL 6 Unknown COMPLETE BLOOD COUNT 2366052 Basophil Abs 0.02 10e9/L 02/22 Unknown FREE T4 52973 T4 Free 0.89 ng/dL 03/06/2016 Unknown GFR CALC 9563343 GFR Non Afr Amr >60 mL/min 03/06/2016 Un known GFR CALC 0555326 GFR Afr Amr >60 mL/min 03/06/2016 Unknow n PSA EQUIMOLAR JONATAN 65485 PSA Total 0.78 ng/mL 6 Unknown FREE T4 06033 FREE T4 0.90 NG/DL 07/01/2015 Unknown LIPID GROUP 74757 HDL TEST 44 MG/DL 07/01/2015 Unknown LIPID GROUP 89222 TRIG 303 MG/DL 07/01/2015 Unknown LIPID GROUP 76349 TEST LDL 56 MG/DL 07/01/2015 Unknown LIPID GROUP 89656 CHOL 161 MG/DL 07/01/2015 Unknown LIPID GROUP 94878 RCHOL/HDL 3.66 RATIO 07/01/2015 Unknow n LIPID GROUP 38024 NON-HDL CH 117 MG/DL 07/01/2015 Unknow n THYROID STIMULATING HORMONE 54906 TSH 1.783 uIU/ML 07/01/2015 Unknown COMPLETE BLOOD COUNT 4894458 WBC 6.6 10e9/L 07/01/20 15 Unknown COMPLETE BLOOD COUNT 0205783 RBC 4.18 10e12/L 2014 Unknown COMPLETE BLOOD COUNT 7302277 HGB 12.2 g/dL 5 Unknown COMPLETE BLOOD COUNT 1898469 HCT DET 37.0 % 5 Unknown COMPLETE BLOOD COUNT 3319004 MCV 88.5 fL 5 Unknown COMPLETE BLOOD COUNT 8735022 MCH 29.2 pg 5 Unknown COMPLETE BLOOD COUNT 9761662 MCHC 33.0 g/dL 5 Unknown COMPLETE BLOOD COUNT 8776923 PLT 224 10e9/L 07/01/20 15 Unknown COMPLETE BLOOD COUNT 9571242 MPV 10.4 fL 5 Unknown COMPLETE BLOOD COUNT 2441277 SUSIE % 72.6 % 5 Unknown COMPLETE BLOOD COUNT 2209899 LY % 14.1 % 5 Unknown COMPLETE BLOOD COUNT 8564715 MON % 10.2 % 5 Unknown COMPLETE BLOOD COUNT 9118460 EOS % 2.6 % 5 Unknown COMPLETE BLOOD COUNT 8163644 BASO % 0.5 % 5 Unknown COMPLETE BLOOD COUNT 7798877 RDW 14.1 % 5 Unknown COMPLETE BLOOD COUNT 5855333 ABS SUSIE 4.79 10e9/L 015 Unknown COMPLETE BLOOD COUNT 1352229 ABS LYMPH 0.93 10e9/L 015 Unknown COMPLETE BLOOD COUNT 4018655 ABS MONO 0.67 10e9/L 015 Unknown COMPLETE BLOOD COUNT 0021349 ABS EOS 0.17 10e9/L 015 Unknown COMPLETE BLOOD COUNT 6825909 ABS BASO 0.03 10e9/L 015 Unknown COMPLETE BLOOD COUNT 4455593 RDW-SD 43.9 fL 5 Unknown PSA EQUIMOLAR JONATAN 68461 PSA EQ 0.73 NG/ML 5 Unknown COMPREHENSIVE METABOLIC 44009 AST 24 U/L 2014 Unknown COMPREHENSIVE METABOLIC 77331 ALT 26 IU/L 2014 Unknown COMPREHENSIVE METABOLIC 46355 BUN 26 MG/DL 2014 Unknown COMPREHENSIVE METABOLIC 96348 ALBUMIN 4.6 GM/DL 2014 Unknown COMPREHENSIVE METABOLIC 91417 CHLORIDE 102 MMOL/L 06/01 Unknown COMPREHENSIVE METABOLIC 89721 BILI TOT 0.5 MG/DL 2014 Unknown COMPREHENSIVE METABOLIC 29105 ALK PHOS 56 U/L 2014 Unknown COMPREHENSIVE METABOLIC 73616 SODIUM 136 MMOL/L 06/01 Unknown COMPREHENSIVE METABOLIC 55766 CREATININE 1.16 MG/DL 04/2015 Unknown COMPREHENSIVE METABOLIC 33152 CALCIUM 9.8 MG/DL 2014 Unknown COMPREHENSIVE METABOLIC 24427 POTASSIUM 4.6 MMOL/L 06/01 Unknown COMPREHENSIVE METABOLIC 56747 PROT TOT 7.4 GM/DL 2014 Unknown COMPREHENSIVE METABOLIC 31877 Glucose 223 MG/DL 2014 Unknown COMPREHENSIVE METABOLIC 74442 BICARB 27 MMOL/L 2014 Unknown COMPREHENSIVE METABOLIC 27166 ANION GAP 7 MEQ/L 2014 Unknown GFR CALC 9916548 GFR AA >60 ML/MIN 06/01/2015 Unknown GFR CALC 8902792 GFR NON-AA >60 ML/MIN 06/01/2015 Unknown GLYCOSYLATED HEMOGLOBIN TEST 03252 A1C HPLC 12485-1 8.9 % 0 06/01/2015 Unknown GFR CALC 8774006 GFR AA >60 ML/MIN 02/25/2015 Unknown GFR CALC 3920215 GFR NON-AA >60 ML/MIN 02/25/2015 Unknown COMPREHENSIVE METABOLIC 95104 AST 24 U/L 2014 Unknown COMPREHENSIVE METABOLIC 61659 ALT 25 IU/L 2014 Unknown COMPREHENSIVE METABOLIC 62908 BUN 14 MG/DL 2014 Unknown COMPREHENSIVE METABOLIC 59725 ALBUMIN 4.5 GM/DL 2014 Unknown COMPREHENSIVE METABOLIC 75018 CHLORIDE 99 MMOL/L 2014 Unknown COMPREHENSIVE METABOLIC 97829 BILI TOT 0.5 MG/DL 2014 Unknown COMPREHENSIVE METABOLIC 86158 ALK PHOS 48 U/L 2014 Unknown COMPREHENSIVE METABOLIC 17586 SODIUM 136 MMOL/L 02/25 Unknown COMPREHENSIVE METABOLIC 93710 CREATININE 0.97 MG/DL 12/2014 Unknown COMPREHENSIVE METABOLIC 93442 CALCIUM 9.9 MG/DL 2014 Unknown COMPREHENSIVE METABOLIC 59500 POTASSIUM 4.4 MMOL/L 02/25 Unknown COMPREHENSIVE METABOLIC 67817 PROT TOT 7.1 GM/DL 2014 Unknown COMPREHENSIVE METABOLIC 09844 Glucose 171 MG/DL 2014 Unknown COMPREHENSIVE METABOLIC 20123 BICARB 25 MMOL/L 2014 Unknown COMPREHENSIVE METABOLIC 35112 ANION GAP 12 MEQ/L 2014 Unknown PROTEIN/CREAT URINE WITH RATIO [id number]|[id number] PROT R U 19 MG/D L 08/27/2014 Unknown PROTEIN/CREAT URINE WITH RATIO 17293|95676 CREAT R U 111 MG/ DL 08/27/2014 Unknown PROTEIN/CREAT URINE WITH RATIO 87427|90420 XRATIO P/C 171 MG /G 08/27/2014 Unknown MICROALBUMIN URINE RANDOM 79808 MICRL MG/L 34.7 MG/L 12/2013 Unknown MICROALBUMIN URINE RANDOM 12566 XM.ALB/CRE 32.7 MG/GCR 1 10/28/2013 Unknown MICROALBUMIN URINE RANDOM 83195 CREAT MG/D 106 MG/DL 12/2013 Unknown MICROALBUMIN URINE RANDOM 49289 CRE/100 1.06 G/L 12/2013 Unknown COMPLETE BLOOD COUNT [id number] WBC 7.1 10e9/L 08/05/20 14 Unknown COMPLETE BLOOD COUNT [id number] RBC 4.35 10e12/L 2013 Unknown COMPLETE BLOOD COUNT [id number] HGB 12.9 g/dL 4 Unknown COMPLETE BLOOD COUNT [id number] HCT DET 39.4 % 4 Unknown COMPLETE BLOOD COUNT 1409002 MCV 90.6 fL 4 Unknown COMPLETE BLOOD COUNT [id number] MCH 29.7 pg 4 Unknown COMPLETE BLOOD COUNT 9169027 MCHC 32.7 g/dL 4 Unknown COMPLETE BLOOD COUNT 8320008 PLT 240 10e9/L 08/05/20 14 Unknown COMPLETE BLOOD COUNT 9059493 MPV 10.3 fL 4 Unknown COMPLETE BLOOD COUNT [id number] SUSIE % 70.0 % 4 Unknown COMPLETE BLOOD COUNT 1212523 LY % 16.4 % 4 Unknown COMPLETE BLOOD COUNT [id number] MON % 9.2 % 4 Unknown COMPLETE BLOOD COUNT [id number] EOS % 3.8 % 4 Unknown COMPLETE BLOOD COUNT [id number] BASO % 0.6 % 4 Unknown COMPLETE BLOOD COUNT 1443258 RDW 13.4 % 4 Unknown COMPLETE BLOOD COUNT [id number] ABS SUSIE 4.97 10e9/L 014 Unknown COMPLETE BLOOD COUNT [id number] ABS LYMPH 1.16 10e9/L 014 Unknown COMPLETE BLOOD COUNT [id number] ABS MONO 0.65 10e9/L 014 Unknown COMPLETE BLOOD COUNT [id number] ABS EOS 0.27 10e9/L 014 Unknown COMPLETE BLOOD COUNT [id number] ABS BASO 0.04 10e9/L 014 Unknown COMPLETE BLOOD COUNT [id number] RDW-SD 43.3 fL 4 Unknown FREE T4 73144 FREE T4 1.02 NG/DL 08/05/2014 Unknown GFR CALC 4619274 GFR AA >60 ML/MIN 08/05/2014 Unknown GFR CALC 3625363 GFR NON-AA >60 ML/MIN 08/05/2014 Unknown GLYCOSYLATED HEMOGLOBIN TEST 35951 A1C HPLC 65355-5 7.7 % 1 10/05/2013 Unknown COMPREHENSIVE METABOLIC 36917 AST 19 U/L 2013 Unknown COMPREHENSIVE METABOLIC 39789 ALT 21 IU/L 2013 Unknown COMPREHENSIVE METABOLIC 97812 BUN 25 MG/DL 2013 Unknown COMPREHENSIVE METABOLIC 79585 ALBUMIN 4.6 GM/DL 2013 Unknown COMPREHENSIVE METABOLIC 19094 CHLORIDE 103 MMOL/L 08/05 Unknown COMPREHENSIVE METABOLIC 97225 BILI TOT 0.4 MG/DL 2013 Unknown COMPREHENSIVE METABOLIC 09173 ALK PHOS 45 U/L 2013 Unknown COMPREHENSIVE METABOLIC 59620 SODIUM 138 MMOL/L 08/05 Unknown COMPREHENSIVE METABOLIC 91938 CREATININE 1.01 MG/DL 07/25 Unknown COMPREHENSIVE METABOLIC 46150 CALCIUM 9.8 MG/DL 2013 Unknown COMPREHENSIVE METABOLIC 46716 POTASSIUM 4.7 MMOL/L 08/05 Unknown COMPREHENSIVE METABOLIC 37448 PROT TOT 7.0 GM/DL 2013 Unknown COMPREHENSIVE METABOLIC 99428 Glucose 145 MG/DL 2013 Unknown COMPREHENSIVE METABOLIC 75431 BICARB 27 MMOL/L 2013 Unknown COMPREHENSIVE METABOLIC 29006 ANION GAP 8 MEQ/L 2013 Unknown THYROID STIMULATING HORMONE 46354 TSH 1.922 uIU/ML 08/05/2014 Unknown LIPID GROUP 87654 HDL TEST 47 MG/DL 08/05/2014 Unknown LIPID GROUP 32879 TRIG 224 MG/DL 08/05/2014 Unknown LIPID GROUP 77476 TEST LDL 125 MG/DL 08/05/2014 Unknown LIPID GROUP 63088 CHOL 217 MG/DL 08/05/2014 Unknown LIPID GROUP 14866 RCHOL/HDL 4.62 RATIO 08/05/2014 Unknow n LIPID GROUP 19383 NON-HDL CH 170 MG/DL 08/05/2014 Unknow n MYCOPLASMA ANTIBODY, IFA [id number] MYCO G IFA 1:256 03/24 Unknown MYCOPLASMA ANTIBODY, IFA [id number] MYCO M IFA <1:10 03/24 Unknown MYCOPLASMA ANTIBODY, IFA [id number] MYCO INTER SEE BELO 03/24 Unknown COMPLETE BLOOD COUNT [id number] WBC 8.3 10e9/L 04/09/20 13 Unknown COMPLETE BLOOD COUNT [id number] RBC 4.61 10e12/L 2012 Unknown COMPLETE BLOOD COUNT [id number] HGB 13.9 g/dL 3 Unknown COMPLETE BLOOD COUNT [id number] HCT DET 41.2 % 3 Unknown COMPLETE BLOOD COUNT [id number] MCV 89.4 fL 3 Unknown COMPLETE BLOOD COUNT [id number] MCH 30.2 pg 3 Unknown COMPLETE BLOOD COUNT [id number] MCHC 33.7 g/dL 3 Unknown COMPLETE BLOOD COUNT [id number] PLT 249 10e9/L 04/09/20 13 Unknown COMPLETE BLOOD COUNT [id number] MPV 9.8 fL 3 Unknown COMPLETE BLOOD COUNT [id number] SUSIE % 65.9 % 3 Unknown COMPLETE BLOOD COUNT [id number] LY % 19.8 % 3 Unknown COMPLETE BLOOD COUNT [id number] MON % 10.8 % 3 Unknown COMPLETE BLOOD COUNT [id number] EOS % 3.0 % 3 Unknown COMPLETE BLOOD COUNT [id number] BASO % 0.5 % 3 Unknown COMPLETE BLOOD COUNT 7381525 RDW 14.0 % 3 Unknown COMPLETE BLOOD COUNT [id number] ABS SUSIE 5.47 10e9/L 013 Unknown COMPLETE BLOOD COUNT [id number] ABS LYMPH 1.64 10e9/L 013 Unknown COMPLETE BLOOD COUNT [id number] ABS MONO 0.90 10e9/L 013 Unknown COMPLETE BLOOD COUNT [id number] ABS EOS 0.25 10e9/L 013 Unknown COMPLETE BLOOD COUNT [id number] ABS BASO 0.04 10e9/L 013 Unknown COMPLETE BLOOD COUNT [id number] RDW-SD 45.0 fL 3 Unknown URIC ACID 83701 URIC ACID 5.3 MG/DL 02/12/2013 Unknown FREE T4 42882 FREE T4 1.09 NG/DL 02/11/2013 Unknown COMPLETE BLOOD COUNT [id number] WBC 6.3 10e9/L 02/12/20 13 Unknown COMPLETE BLOOD COUNT [id number] RBC 4.29 10e12/L 2012 Unknown COMPLETE BLOOD COUNT [id number] HGB 13.1 g/dL 3 Unknown COMPLETE BLOOD COUNT [id number] HCT DET 39.7 % 3 Unknown COMPLETE BLOOD COUNT [id number] MCV 92.5 fL 3 Unknown COMPLETE BLOOD COUNT 0795328 MCH 30.5 pg 3 Unknown COMPLETE BLOOD COUNT [id number] MCHC 33.0 g/dL 3 Unknown COMPLETE BLOOD COUNT [id number] PLT 247 10e9/L 02/12/20 13 Unknown COMPLETE BLOOD COUNT 7205583 MPV 10.0 fL 3 Unknown COMPLETE BLOOD COUNT [id number] SUSIE % 73.4 % 3 Unknown COMPLETE BLOOD COUNT [id number] LY % 13.5 % 3 Unknown COMPLETE BLOOD COUNT [id number] MON % 9.4 % 3 Unknown COMPLETE BLOOD COUNT [id number] EOS % 2.9 % 3 Unknown COMPLETE BLOOD COUNT [id number] BASO % 0.8 % 3 Unknown COMPLETE BLOOD COUNT 8010836 RDW 13.8 % 3 Unknown COMPLETE BLOOD COUNT [id number] ABS SUSIE 4.62 10e9/L 013 Unknown COMPLETE BLOOD COUNT [id number] ABS LYMPH 0.85 10e9/L 013 Unknown COMPLETE BLOOD COUNT [id number] ABS MONO 0.59 10e9/L 013 Unknown COMPLETE BLOOD COUNT [id number] ABS EOS 0.18 10e9/L 013 Unknown COMPLETE BLOOD COUNT [id number] ABS BASO 0.05 10e9/L 013 Unknown COMPLETE BLOOD COUNT [id number] RDW-SD 45.7 fL 3 Unknown HEMOGLOBIN A1C (GLYCOSYLATED) 8665483 A1C [facility] 01056-9 7.5 % 02/11/2013 Unknown THYROID STIMULATING HORMONE 25978 TSH 1.466 uIU/ML 02/11/2013 Unknown VITAMIN B 12 FOLIC ACID 63608|46704 VIT B 12 625 PG/ML 01/23 Unknown VITAMIN B 12 FOLIC ACID 94621|39383 FOLIC ACID 15.6 NG/ML Unknown COMPREHENSIVE METABOLIC 26806 AST 18 U/L 2012 Unknown COMPREHENSIVE METABOLIC 96492 ALT 21 IU/L 2012 Unknown COMPREHENSIVE METABOLIC 56266 BUN 25 MG/DL 2012 Unknown COMPREHENSIVE METABOLIC 69017 ALBUMIN 4.6 GM/DL 2012 Unknown COMPREHENSIVE METABOLIC 77358 CHLORIDE 103 MMOL/L 02/11 Unknown COMPREHENSIVE METABOLIC 88287 BILI TOT 0.3 MG/DL 2012 Unknown COMPREHENSIVE METABOLIC 53244 ALK PHOS 53 U/L 2012 Unknown COMPREHENSIVE METABOLIC 40719 SODIUM 136 MMOL/L 02/11 Unknown COMPREHENSIVE METABOLIC 67826 CREATININE 1.16 MG/DL 01/23 Unknown COMPREHENSIVE METABOLIC 55856 CALCIUM 10.0 MG/DL 02/11 Unknown COMPREHENSIVE METABOLIC 60513 POTASSIUM 4.9 MMOL/L 02/11 Unknown COMPREHENSIVE METABOLIC 74173 PROT TOT 7.0 GM/DL 2012 Unknown COMPREHENSIVE METABOLIC 83926 Glucose 192 MG/DL 2012 Unknown COMPREHENSIVE METABOLIC 26676 BICARB 26 MMOL/L 2012 Unknown COMPREHENSIVE METABOLIC 64675 ANION GAP 7 MEQ/L 2012 Unknown GFR CALC 4027824 GFR AA >60 ML/MIN 02/11/2013 Unknown GFR CALC 2913184 GFR NON-AA >60 ML/MIN 02/11/2013 Unknown C-REACTIVE PROTEIN (CRP) QUANT 23705 CRP 2.7 MG/DL 02/11/2013 Unknown GFR CALC 2286778 GFR AA >60 ML/MIN 09/19/2012 Unknown GFR CALC 2574399 GFR NON-AA >60 ML/MIN 09/19/2012 Unknown HEMOGLOBIN A1C (GLYCOSYLATED) 4221853 A1C HPLC 89215-2 7.2 % 09/19/2012 Unknown COMPREHENSIVE METABOLIC 17810 AST 13 U/L 2011 Unknown COMPREHENSIVE METABOLIC 48578 ALT 17 IU/L 2011 Unknown COMPREHENSIVE METABOLIC 15832 BUN 25 MG/DL 2011 Unknown COMPREHENSIVE METABOLIC 93437 ALBUMIN 4.5 GM/DL 2011 Unknown COMPREHENSIVE METABOLIC 65885 CHLORIDE 104 MMOL/L 09/19 Unknown COMPREHENSIVE METABOLIC 15147 BILI TOT 0.3 MG/DL 2011 Unknown COMPREHENSIVE METABOLIC 42168 ALK PHOS 43 U/L 2011 Unknown COMPREHENSIVE METABOLIC 25077 SODIUM 139 MMOL/L 09/19 Unknown COMPREHENSIVE METABOLIC 70248 CREATININE 1.10 MG/DL 08/25 Unknown COMPREHENSIVE METABOLIC 90172 CALCIUM 9.8 MG/DL 2011 Unknown COMPREHENSIVE METABOLIC 07611 POTASSIUM 4.8 MMOL/L 09/19 Unknown COMPREHENSIVE METABOLIC 11059 PROT TOT 6.5 GM/DL 2011 Unknown COMPREHENSIVE METABOLIC 14374 Glucose 148 MG/DL 2011 Unknown COMPREHENSIVE METABOLIC 28622 BICARB 25 MMOL/L 2011 Unknown COMPREHENSIVE METABOLIC 99274 ANION GAP 10 MEQ/L 2011 Unknown LIPID GROUP 70092 HDL TEST 44 MG/DL 09/19/2012 Unknown LIPID GROUP 55041 TRIG 318 MG/DL 09/19/2012 Unknown LIPID GROUP 97213 TEST LDL 100 MG/DL 09/19/2012 Unknown LIPID GROUP 73627 CHOL 208 MG/DL 09/19/2012 Unknown LIPID GROUP 52986 RCHOL/HDL 4.73 RATIO 09/19/2012 Unknow n FREE T4 70279 FREE T4 0.87 NG/DL 05/06/2012 Unknown GLYCOSYLATED HEMOGLOBIN TEST 58818 A1C HPLC 63746-2 6.4 % 0 05/06/2012 Unknown LIPID GROUP 26924 HDL TEST 44 MG/DL 05/06/2012 Unknown LIPID GROUP 70329 TRIG 177 MG/DL 05/06/2012 Unknown LIPID GROUP 75058 TEST LDL 113 MG/DL 05/06/2012 Unknown LIPID GROUP 54260 CHOL 192 MG/DL 05/06/2012 Unknown LIPID GROUP 95749 RCHOL/HDL 4.36 RATIO 05/06/2012 Unknow n THYROID STIMULATING HORMONE 18777 TSH 1.151 uIU/ML 05/06/2012 Unknown COMPLETE BLOOD COUNT 65133 WBC 7.8 10e9/L 05/06/20 12 Unknown COMPLETE BLOOD COUNT 30171 RBC 4.31 10e12/L 2011 Unknown COMPLETE BLOOD COUNT 58966 HGB 12.8 g/dL 2 Unknown COMPLETE BLOOD COUNT 86685 HCT DET 39.1 % 2 Unknown COMPLETE BLOOD COUNT 65934 MCV 90.7 fL 2 Unknown COMPLETE BLOOD COUNT 91889 MCH 29.7 pg 2 Unknown COMPLETE BLOOD COUNT 45353 MCHC 32.7 g/dL 2 Unknown COMPLETE BLOOD COUNT 07457 PLT 207 10e9/L 05/06/20 12 Unknown COMPLETE BLOOD COUNT 87197 MPV 10.2 fL 2 Unknown COMPLETE BLOOD COUNT 25795 SUSIE % 74.2 % 2 Unknown COMPLETE BLOOD COUNT 15045 LY % 12.8 % 2 Unknown COMPLETE BLOOD COUNT 78587 MON % 11.0 % 2 Unknown COMPLETE BLOOD COUNT 11982 EOS % 1.7 % 2 Unknown COMPLETE BLOOD COUNT 32443 BASO % 0.3 % 2 Unknown COMPLETE BLOOD COUNT 50472 RDW 13.7 % 2 Unknown COMPLETE BLOOD COUNT 34792 ABS SUSIE 5.79 10e9/L 012 Unknown COMPLETE BLOOD COUNT 85932 ABS LYMPH 1.00 10e9/L 012 Unknown COMPLETE BLOOD COUNT 94373 ABS MONO 0.86 10e9/L 012 Unknown COMPLETE BLOOD COUNT 12566 ABS EOS 0.13 10e9/L 012 Unknown COMPLETE BLOOD COUNT 99858 ABS BASO 0.02 10e9/L 012 Unknown COMPLETE BLOOD COUNT 61980 RDW-SD 44.4 fL 2 Unknown COMPREHENSIVE METABOLIC 18096 AST 13 U/L 2011 Unknown COMPREHENSIVE METABOLIC 08417 ALT 14 IU/L 2011 Unknown COMPREHENSIVE METABOLIC 03105 BUN 17 MG/DL 2011 Unknown COMPREHENSIVE METABOLIC 91826 ALBUMIN 4.5 GM/DL 2011 Unknown COMPREHENSIVE METABOLIC 08201 CHLORIDE 101 MMOL/L 05/06 Unknown COMPREHENSIVE METABOLIC 47385 BILI TOT 0.5 MG/DL 2011 Unknown COMPREHENSIVE METABOLIC 69497 ALK PHOS 42 U/L 2011 Unknown COMPREHENSIVE METABOLIC 57890 SODIUM 141 MMOL/L 05/06 Unknown COMPREHENSIVE METABOLIC 93504 CREATININE 1.02 MG/DL 04/24 Unknown COMPREHENSIVE METABOLIC 63010 CALCIUM 9.7 MG/DL 2011 Unknown COMPREHENSIVE METABOLIC 03394 POTASSIUM 4.6 MMOL/L 05/06 Unknown COMPREHENSIVE METABOLIC 35150 PROT TOT 6.5 GM/DL 2011 Unknown COMPREHENSIVE METABOLIC 21502 Glucose 139 MG/DL 2011 Unknown COMPREHENSIVE METABOLIC 82792 BICARB 29 MMOL/L 2011 Unknown COMPREHENSIVE METABOLIC 95781 ANION GAP 11 MEQ/L 2011 Unknown GFR CALC 8414972 GFR AA >60 ML/MIN 05/06/2012 Unknown GFR CALC 3692004 GFR NON-AA 54.0L ML/MIN 05/06/2012 Unkno wn GLYCOSYLATED HEMOGLOBIN TEST 31263 A1C HPLC 05863-4 6.6 % 1 09/30/2010 Unknown FREE T4 30090 FREE T4 1.00 NG/DL 07/26/2011 Unknown LIPID GROUP 28127 HDL TEST 40 MG/DL 07/26/2011 Unknown LIPID GROUP 95982 TRIG 136 MG/DL 07/26/2011 Unknown LIPID GROUP 58220 TEST LDL 126 MG/DL 07/26/2011 Unknown LIPID GROUP 41480 CHOL 193 MG/DL 07/26/2011 Unknown LIPID GROUP 88213 RCHOL/HDL 4.83 RATIO 07/26/2011 Unknow n COMPREHENSIVE METABOLIC 91231 AST 15 U/L 2010 Unknown COMPREHENSIVE METABOLIC 77329 ALT 13 IU/L 2010 Unknown COMPREHENSIVE METABOLIC 83402 BUN 17 MG/DL 2010 Unknown COMPREHENSIVE METABOLIC 47779 ALBUMIN 4.4 GM/DL 2010 Unknown COMPREHENSIVE METABOLIC 39365 CHLORIDE 102 MMOL/L 07/26 Unknown COMPREHENSIVE METABOLIC 66109 BILI TOT 0.5 MG/DL 2010 Unknown COMPREHENSIVE METABOLIC 37764 ALK PHOS 54 U/L 2010 Unknown COMPREHENSIVE METABOLIC 79762 SODIUM 138 MMOL/L 07/26 Unknown COMPREHENSIVE METABOLIC 27651 CREATININE 0.95 MG/DL 10/2010 Unknown COMPREHENSIVE METABOLIC 62990 CALCIUM 9.3 MG/DL 2010 Unknown COMPREHENSIVE METABOLIC 66423 POTASSIUM 4.3 MMOL/L 07/26 Unknown COMPREHENSIVE METABOLIC 89595 PROT TOT 6.7 GM/DL 2010 Unknown COMPREHENSIVE METABOLIC 72751 Glucose 116 MG/DL 2010 Unknown COMPREHENSIVE METABOLIC 27053 BICARB 28 MMOL/L 2010 Unknown COMPREHENSIVE METABOLIC 85133 ANION GAP 8 MEQ/L 2010 Unknown PSA EQUIMOLAR JONATAN 49400 PSA EQ 1.01 NG/ML 1 Unknown COMPLETE BLOOD COUNT 54085 WBC 6.4 10e9/L 07/26/20 11 Unknown COMPLETE BLOOD COUNT 27282 RBC 4.43 10e12/L 2010 Unknown COMPLETE BLOOD COUNT 44156 HGB 13.2 g/dL 1 Unknown COMPLETE BLOOD COUNT 55068 HCT DET 39.3 % 1 Unknown COMPLETE BLOOD COUNT 60926 MCV 88.7 fL 1 Unknown COMPLETE BLOOD COUNT 41114 MCH 29.8 pg 1 Unknown COMPLETE BLOOD COUNT 95106 MCHC 33.6 g/dL 1 Unknown COMPLETE BLOOD COUNT 68787 PLT 226 10e9/L 07/26/20 11 Unknown COMPLETE BLOOD COUNT 80440 MPV 9.9 fL 1 Unknown COMPLETE BLOOD COUNT 97878 SUSIE % 65.4 % 1 Unknown COMPLETE BLOOD COUNT 39376 LY % 19.7 % 1 Unknown COMPLETE BLOOD COUNT 74287 MON % 10.8 % 1 Unknown COMPLETE BLOOD COUNT 42081 EOS % 3.6 % 1 Unknown COMPLETE BLOOD COUNT 67674 BASO % 0.5 % 1 Unknown COMPLETE BLOOD COUNT 46070 RDW 13.2 % 1 Unknown COMPLETE BLOOD COUNT 05278 ABS SUSIE 4.19 10e9/L 011 Unknown COMPLETE BLOOD COUNT 59467 ABS LYMPH 1.26 10e9/L 011 Unknown COMPLETE BLOOD COUNT 28035 ABS MONO 0.69 10e9/L 011 Unknown COMPLETE BLOOD COUNT 55062 ABS EOS 0.23 10e9/L 011 Unknown COMPLETE BLOOD COUNT 40477 ABS BASO 0.03 10e9/L 011 Unknown COMPLETE BLOOD COUNT 24331 RDW-SD 41.7 fL 1 Unknown THYROID STIMULATING HORMONE 66452 TSH 1.345 uIU/ML 07/26/2011 Unknown GFR CALC 9722211 GFR AA >60 ML/MIN 07/26/2011 Unknown GFR CALC 3584843 GFR NON-AA >60 ML/MIN 07/26/2011 Unknown BRAIN NATRIURETIC PEPTIDE(BNP) 35231 BRAIN PEP 23 pg/mL 01/19/2011 Unknown CANCEL 4739732 CANCEL FOOTNOTE 01/18/2011 Unknown TESTOSTERONE TOTAL 34030 TESTOS TO 138 NG/DL 12/19/2010 Unknown COMPLETE BLOOD COUNT 27017 WBC 8.4 10e9/L 12/08/19 11 Unknown COMPLETE BLOOD COUNT 30029 RBC 4.40 10e12/L 2010 Unknown COMPLETE BLOOD COUNT 21964 HGB 13.3 g/dL 1 Unknown COMPLETE BLOOD COUNT 57336 HCT DET 39.8 % 1 Unknown COMPLETE BLOOD COUNT 08300 MCV 90.5 fL 1 Unknown COMPLETE BLOOD COUNT 86978 MCH 30.2 pg 1 Unknown COMPLETE BLOOD COUNT 21256 MCHC 33.4 g/dL 1 Unknown COMPLETE BLOOD COUNT 10443 PLT 201 10e9/L 12/08/19 11 Unknown COMPLETE BLOOD COUNT 63440 MPV 10.6 fL 1 Unknown COMPLETE BLOOD COUNT 91331 SUSIE % 72.5 % 1 Unknown COMPLETE BLOOD COUNT 51864 LY % 14.8 % 1 Unknown COMPLETE BLOOD COUNT 77545 MON % 10.6 % 1 Unknown COMPLETE BLOOD COUNT 37041 EOS % 1.7 % 1 Unknown COMPLETE BLOOD COUNT 10522 BASO % 0.4 % 1 Unknown COMPLETE BLOOD COUNT 22385 RDW 13.7 % 1 Unknown COMPLETE BLOOD COUNT 10324 ABS SUSIE 6.09 10e9/L 011 Unknown COMPLETE BLOOD COUNT 41368 ABS LYMPH 1.24 10e9/L 011 Unknown COMPLETE BLOOD COUNT 69638 ABS MONO 0.89 10e9/L 011 Unknown COMPLETE BLOOD COUNT 88526 ABS EOS 0.14 10e9/L 011 Unknown COMPLETE BLOOD COUNT 80205 ABS BASO 0.03 10e9/L 011 Unknown COMPLETE BLOOD COUNT 43389 RDW-SD 44.0 fL 1 Unknown LIPID GROUP 76523 HDL TEST 40 MG/DL 12/07/2010 Unknown LIPID GROUP 91453 TRIG 383 MG/DL 12/07/2010 Unknown LIPID GROUP 45115 TEST LDL 82 MG/DL 12/07/2010 Unknown LIPID GROUP 30368 CHOL 199 MG/DL 12/07/2010 Unknown LIPID GROUP 91752 RCHOL/HDL 4.98 RATIO 12/07/2010 Unknow n GFR CALC 3915853 GFR AA >60 ML/MIN 12/07/2010 Unknown GFR CALC 2940510 GFR NON-AA >60 ML/MIN 12/07/2010 Unknown COMPREHENSIVE METABOLIC 30267 AST 29 U/L 2010 Unknown COMPREHENSIVE METABOLIC 92710 ALT 39 IU/L 2010 Unknown COMPREHENSIVE METABOLIC 98772 BUN 17 MG/DL 2010 Unknown COMPREHENSIVE METABOLIC 77755 ALBUMIN 4.9 GM/DL 2010 Unknown COMPREHENSIVE METABOLIC 53906 CHLORIDE 100 MMOL/L 12/07 Unknown COMPREHENSIVE METABOLIC 04276 BILI TOT 0.3 MG/DL 2010 Unknown COMPREHENSIVE METABOLIC 65534 ALK PHOS 53 U/L 2010 Unknown COMPREHENSIVE METABOLIC 52655 SODIUM 137 MMOL/L 12/07 Unknown COMPREHENSIVE METABOLIC 93325 CREATININE 0.98 MG/DL 11/22 Unknown COMPREHENSIVE METABOLIC 24509 CALCIUM 9.5 MG/DL 2010 Unknown COMPREHENSIVE METABOLIC 25057 POTASSIUM 4.3 MMOL/L 12/07 Unknown COMPREHENSIVE METABOLIC 23227 PROT TOT 6.6 GM/DL 2010 Unknown COMPREHENSIVE METABOLIC 73732 Glucose 176 MG/DL 2010 Unknown COMPREHENSIVE METABOLIC 67167 BICARB 28 MMOL/L 2010 Unknown COMPREHENSIVE METABOLIC 68138 ANION GAP 9 MEQ/L 2010 Unknown PSA EQUIMOLAR JONATAN 63800 PSA EQ 0.65 NG/ML 1 Unknown HEMOGLOBIN A1C (GLYCOSYLATED) 57575 A1C HPLC 02426-7 6.9 % 12/07/2010 Unknown Procedures Procedure Codes Date THER/PROPH/DIAG INJ SC/IM CPT-4: 07754 12/25/2019 METHYLPREDNISOLONE INJECTION CPT-4: J2930 12/25/2019 FLU VACC PRSV FREE INC ANTIG 65 AND OLDER CPT-4: 77719 08/07/2019 FLU VACC PRSV FREE INC ANTIG 65 AND OLDER CPT-4: 25500 08/07/2019 ADMIN INFLUENZA VIRUS VAC CPT-4: G0008 08/07/2019 THER/PROPH/DIAG INJ SC/IM CPT-4: 90472 07/14/2019 METHYLPREDNISOLONE INJECTION CPT-4: J2930 07/14/2019 ROUTINE VENIPUNCTURE CPT-4: 63027 06/17/2019 ASSAY THYROID STIM HORMONE CPT-4: 03174 06/17/2019 COMPREHEN METABOLIC PANEL CPT-4: 17456 06/17/2019 COMPLETE CBC W/AUTO DIFF WBC CPT-4: 35943 06/17/2019 ASSAY OF IRON CPT-4: 74054 06/17/2019 VITAMIN B-12 CPT-4: 99740 06/17/2019 RBC SED RATE AUTOMATED CPT-4: 69705 06/17/2019 THER/PROPH/DIAG INJ SC/IM CPT-4: 75345 06/10/2019 THER/PROPH/DIAG INJ SC/IM CPT-4: 07615 06/02/2019 THER/PROPH/DIAG INJ SC/IM CPT-4: 01528 05/27/2019 THER/PROPH/DIAG INJ SC/IM CPT-4: 28034 05/12/2019 ROUTINE VENIPUNCTURE CPT-4: 22210 05/08/2019 COMPREHEN METABOLIC PANEL CPT-4: 40099 05/08/2019 COMPLETE CBC W/AUTO DIFF WBC CPT-4: 26496 05/08/2019 A1C HPLC CPT-4: 01965 05/08/2019 VITAMIN D TOTAL (25 HYDROXY) CPT-4: 72919 05/08/2019 ASSAY OF IRON CPT-4: 55214 05/08/2019 ASSAY OF FERRITIN CPT-4: 73674 05/08/2019 VITAMIN B-12 CPT-4: 67611 05/08/2019 THER/PROPH/DIAG INJ SC/IM CPT-4: 01730 03/21/2019 METHYLPREDNISOLONE INJECTION CPT-4: J2930 03/21/2019 THER/PROPH/DIAG INJ SC/IM CPT-4: 71248 03/13/2019 METHYLPREDNISOLONE INJECTION CPT-4: J2930 03/13/2019 THER/PROPH/DIAG INJ SC/IM CPT-4: 20297 12/25/2018 METHYLPREDNISOLONE INJECTION CPT-4: J2930 12/25/2018 ROUTINE VENIPUNCTURE CPT-4: 42946 12/09/2018 ASSAY OF FREE THYROXINE CPT-4: 55302 12/09/2018 ASSAY THYROID STIM HORMONE CPT-4: 33724 12/09/2018 COMPREHEN METABOLIC PANEL CPT-4: 03252 12/09/2018 COMPLETE CBC W/AUTO DIFF WBC CPT-4: 06289 12/09/2018 LIPID PANEL CPT-4: 62788 12/09/2018 A1C HPLC CPT-4: 59461 12/09/2018 PRESCRIP TRANSMIT VIA ERX SY CPT-4: G8553 08/21/2018 PRESCRIP TRANSMIT VIA ERX SY CPT-4: G8553 08/07/2018 THER/PROPH/DIAG INJ SC/IM CPT-4: 90895 05/23/2018 METHYLPREDNISOLONE INJECTION CPT-4: J2930 05/23/2018 PRESCRIP TRANSMIT VIA ERX SY CPT-4: G8553 05/02/2018 THER/PROPH/DIAG INJ SC/IM CPT-4: 49632 04/29/2018 METHYLPREDNISOLONE INJECTION CPT-4: J2930 04/29/2018 DEXAMETHASONE SODIUM PHOS CPT-4: J1100 04/22/2018 THER/PROPH/DIAG INJ SC/IM CPT-4: 07564 04/22/2018 TRIAMCINOLONE ACET INJ NOS CPT-4: J3301 04/22/2018 PRESCRIP TRANSMIT VIA ERX SY CPT-4: G8553 04/22/2018 PRESCRIP TRANSMIT VIA ERX SY CPT-4: G8553 01/23/2018 URINALYSIS NONAUTO W/O SCOPE CPT-4: 00968 01/02/2018 URINE CULTURE/ COLONY COUNT CPT-4: 54350 01/02/2018 PRESCRIP TRANSMIT VIA ERX SY CPT-4: G8553 01/02/2018 PRESCRIP TRANSMIT VIA ERX SY CPT-4: G8553 12/28/2017 PRESCRIP TRANSMIT VIA ERX SY CPT-4: G8553 12/21/2017 CEFTRIAXONE SODIUM INJECTION CPT-4: J0696 12/17/2017 THER/PROPH/DIAG INJ SC/IM CPT-4: 05512 12/17/2017 THER/PROPH/DIAG INJ SC/IM CPT-4: 85933 12/17/2017 TRIAMCINOLONE ACET INJ NOS CPT-4: J3301 12/17/2017 PRESCRIP TRANSMIT VIA ERX SY CPT-4: G8553 12/17/2017 DRAIN/INJECT JOINT/BURSA CPT-4: 75809 12/11/2017 TRIAMCINOLONE ACET INJ NOS CPT-4: J3301 12/11/2017 DEXAMETHASONE SODIUM PHOS CPT-4: J1100 12/11/2017 DESTRUCT PREMALG LESION (Cryosurgery) CPT-4: 44901 PRESCRIP TRANSMIT VIA ERX SY CPT-4: G8553 10/17/2017 DEXAMETHASONE SODIUM PHOS CPT-4: J1100 08/02/2017 THER/PROPH/DIAG INJ SC/IM CPT-4: 92790 08/02/2017 TRIAMCINOLONE ACET INJ NOS CPT-4: J3301 08/02/2017 PRESCRIP TRANSMIT VIA ERX SY CPT-4: G8553 08/02/2017 PNEUMOCOCCAL VACC 23 OLIVIA IM CPT-4: 26498 07/24/2017 ADMIN PNEUMOCOCCAL VACCINE CPT-4: G0009 07/24/2017 ALBUTEROL NON-COMP UNIT CPT-4: J7613 07/02/2017 AIRWAY INHALATION TREATMENT CPT-4: 53029 07/02/2017 THER/PROPH/DIAG INJ SC/IM CPT-4: 65837 07/02/2017 METHYLPREDNISOLONE INJECTION CPT-4: J2930 07/02/2017 PRESCRIP TRANSMIT VIA ERX SY CPT-4: G8553 05/29/2017 ROUTINE VENIPUNCTURE CPT-4: 30260 04/17/2017 ASSAY OF IRON CPT-4: 99072 04/17/2017 VITAMIN B-12 CPT-4: 24927 04/17/2017 COMPREHEN METABOLIC PANEL CPT-4: 22316 04/17/2017 COMPLETE CBC W/AUTO DIFF WBC CPT-4: 66473 04/17/2017 ASSAY OF FERRITIN CPT-4: 52389 04/17/2017 ASSAY THYROID STIM HORMONE CPT-4: 58291 04/17/2017 A1C HPLC CPT-4: 93758 04/17/2017 DRAIN/INJECT JOINT/BURSA CPT-4: 63477 02/01/2017 TRIAMCINOLONE ACET INJ NOS CPT-4: J3301 02/01/2017 DEXAMETHASONE SODIUM PHOS CPT-4: J1100 02/01/2017 ROUTINE VENIPUNCTURE CPT-4: 88469 12/27/2016 COMPLETE CBC W/AUTO DIFF WBC CPT-4: 75780 12/27/2016 ROUTINE VENIPUNCTURE CPT-4: 42202 12/21/2016 COMPLETE CBC W/AUTO DIFF WBC CPT-4: 97524 12/21/2016 ROUTINE VENIPUNCTURE CPT-4: 93821 12/12/2016 COMPLETE CBC W/AUTO DIFF WBC CPT-4: 49448 12/12/2016 PRESCRIP TRANSMIT VIA ERX SY CPT-4: G8553 10/31/2016 PRESCRIP TRANSMIT VIA ERX SY CPT-4: G8553 10/03/2016 PRESCRIP TRANSMIT VIA ERX SY CPT-4: G8553 09/04/2016 DESTRUCT PREMALG LESION (Cryosurgery) CPT-4: 98078 DESTRUCT PREMALG LES 2-14 CPT-4: 16895 08/22/2016 PRESCRIP TRANSMIT VIA ERX SY CPT-4: G8553 08/10/2016 PRESCRIP TRANSMIT VIA ERX SY CPT-4: G8553 07/06/2016 FLU VACC PRSV FREE INC ANTIG 65 AND OLDER CPT-4: 73628 06/13/2016 PNEUMOCOCCAL VACC 13 OLIVIA IM CPT-4: 45165 06/13/2016 ADMIN INFLUENZA VIRUS VAC CPT-4: G0008 06/13/2016 ADMIN PNEUMOCOCCAL VACCINE CPT-4: G0009 06/13/2016 CERUM REMOVAL CPT-4: 15356 04/05/2016 PRESCRIP TRANSMIT VIA ERX SY CPT-4: G8553 04/03/2016 ROUTINE VENIPUNCTURE CPT-4: 54778 03/06/2016 ASSAY OF FREE THYROXINE CPT-4: 02534 03/06/2016 ASSAY THYROID STIM HORMONE CPT-4: 66983 03/06/2016 COMPREHEN METABOLIC PANEL CPT-4: 05342 03/06/2016 COMPLETE CBC W/AUTO DIFF WBC CPT-4: 08432 03/06/2016 LIPID PANEL CPT-4: 74584 03/06/2016 ASSAY OF PSA TOTAL CPT-4: 08464 03/06/2016 TESTOSTERONE TOTAL - MALE CPT-4: 38728 03/06/2016 A1C HPLC CPT-4: 90917 03/06/2016 ASSAY OF IRON CPT-4: 37195 03/06/2016 VITAMIN B-12 CPT-4: 89587 03/06/2016 INJ TENDON SHEATH/LIGAMENT CPT-4: 81239 02/17/2016 TRIAMCINOLONE ACET INJ NOS CPT-4: J3301 02/17/2016 DEXAMETHASONE SODIUM PHOS CPT-4: J1100 02/17/2016 PRESCRIP TRANSMIT VIA ERX SY CPT-4: G8553 01/31/2016 PRESCRIP TRANSMIT VIA ERX SY CPT-4: G8553 12/30/2015 PRESCRIP TRANSMIT VIA ERX SY CPT-4: G8553 12/06/2015 PRESCRIP TRANSMIT VIA ERX SY CPT-4: G8553 11/15/2015 PPPS, subseq visit CPT-4: G0439 10/05/2015 MICROALBUMIN QUANTITATIVE CPT-4: 50761 10/05/2015 PROTEIN/CREAT URINE WITH RATIO CPT-4: 29092|08244 6 ROUTINE VENIPUNCTURE CPT-4: 88743 07/01/2015 ASSAY OF FREE THYROXINE CPT-4: 01176 07/01/2015 ASSAY THYROID STIM HORMONE CPT-4: 70436 07/01/2015 COMPLETE CBC W/AUTO DIFF WBC CPT-4: 78395 07/01/2015 LIPID PANEL CPT-4: 21032 07/01/2015 ASSAY OF PSA TOTAL CPT-4: 80776 07/01/2015 AEROBIC WOUND CULTURE & STN CPT-4: 75621 06/28/2015 PRESCRIP TRANSMIT VIA ERX SY CPT-4: G8553 06/28/2015 AEROBIC WOUND CULTURE & STN CPT-4: 18402 06/03/2015 PRESCRIP TRANSMIT VIA ERX SY CPT-4: G8553 06/03/2015 ROUTINE VENIPUNCTURE CPT-4: 93913 06/01/2015 COMPREHEN METABOLIC PANEL CPT-4: 39326 06/01/2015 A1C HPLC CPT-4: 09948 06/01/2015 COMPREHEN METABOLIC PANEL CPT-4: 49671 02/25/2015 A1C HPLC CPT-4: 83151 02/25/2015 DESTRUCT PREMALG LESION (Cryosurgery) CPT-4: 05113 PROTEIN/CREAT URINE WITH RATIO CPT-4: 56316|10881 5 MICROALBUMIN QUANTITATIVE CPT-4: 90335 10/27/2014 INFLUENZA ASSAY W/OPTIC CPT-4: 59679 10/21/2014 PRESCRIP TRANSMIT VIA ERX SY CPT-4: G8553 10/06/2014 PRESCRIP TRANSMIT VIA ERX SY CPT-4: G8553 09/21/2014 PRESCRIP TRANSMIT VIA ERX SY CPT-4: G8553 09/02/2014 MICROALBUMIN QUANTITATIVE CPT-4: 35700 08/27/2014 PROTEIN/CREAT URINE WITH RATIO CPT-4: 85342|96444 4 PPPS, subseq visit CPT-4: G0439 08/10/2014 ROUTINE VENIPUNCTURE CPT-4: 24722 08/05/2014 ASSAY OF FREE THYROXINE CPT-4: 56086 08/05/2014 ASSAY THYROID STIM HORMONE CPT-4: 53287 08/05/2014 COMPREHEN METABOLIC PANEL CPT-4: 87043 08/05/2014 COMPLETE CBC W/AUTO DIFF WBC CPT-4: 69877 08/05/2014 LIPID PANEL CPT-4: 20543 08/05/2014 A1C HPLC CPT-4: 93583 08/05/2014 FLUZONE, 5ML (Medicare) CPT-4: Q2038 08/05/2014 ADMIN INFLUENZA VIRUS VAC CPT-4: G0008 08/05/2014 METHYLPREDNISOLONE 40 MG INJ CPT-4: J1030 12/16/2013 TRIAMCINOLONE ACET INJ NOS CPT-4: J3301 12/16/2013 DRAIN/INJECT JOINT/BURSA CPT-4: 76534 12/16/2013 PRESCRIP TRANSMIT VIA ERX SY CPT-4: G8553 10/09/2013 THER/PROPH/DIAG INJ SC/IM CPT-4: 34685 09/18/2013 METHYLPREDNISOLONE 40 MG INJ CPT-4: J1030 09/18/2013 TRIAMCINOLONE ACET INJ NOS CPT-4: J3301 09/18/2013 PRESCRIP TRANSMIT VIA ERX SY CPT-4: G8553 09/18/2013 PRESCRIP TRANSMIT VIA ERX SY CPT-4: G8553 08/13/2013 ROUTINE VENIPUNCTURE CPT-4: 07288 06/25/2013 ASSAY OF FREE THYROXINE CPT-4: 08566 06/25/2013 ASSAY THYROID STIM HORMONE CPT-4: 68294 06/25/2013 COMPREHEN METABOLIC PANEL CPT-4: 75914 06/25/2013 COMPLETE CBC W/AUTO DIFF WBC CPT-4: 81204 06/25/2013 LIPID PANEL CPT-4: 02473 06/25/2013 A1C GLYCOSYLATED HEMOGLOBIN TEST CPT-4: 99378 013 ROUTINE VENIPUNCTURE CPT-4: 92084 04/09/2013 COMPLETE CBC W/AUTO DIFF WBC CPT-4: 07081 04/09/2013 MYCOPLASMA ANTIBODY, IFA CPT-4: 18756Q4 04/09/2013 ROUTINE VENIPUNCTURE CPT-4: 93242 02/11/2013 ASSAY OF FREE THYROXINE CPT-4: 92955 02/11/2013 ASSAY THYROID STIM HORMONE CPT-4: 13877 02/11/2013 COMPREHEN METABOLIC PANEL CPT-4: 26870 02/11/2013 COMPLETE CBC W/AUTO DIFF WBC CPT-4: 10214 02/11/2013 VITAMIN B 12 FOLIC ACID CPT-4: 02856|25563 02/11/2013 C-REACTIVE PROTEIN CPT-4: 61858 02/11/2013 A1C GLYCOSYLATED HEMOGLOBIN TEST CPT-4: 49775 013 ASSAY OF BLOOD/URIC ACID CPT-4: 36421 02/11/2013 CEFTRIAXONE SODIUM INJECTION CPT-4: J0696 01/31/2013 THER/PROPH/DIAG INJ SC/IM CPT-4: 21254 01/31/2013 THER/PROPH/DIAG INJ SC/IM CPT-4: 25974 01/31/2013 METHYLPREDNISOLONE 40 MG INJ CPT-4: J1030 01/31/2013 TRIAMCINOLONE ACET INJ NOS CPT-4: J3301 01/31/2013 ROUTINE VENIPUNCTURE CPT-4: 95516 09/19/2012 COMPREHEN METABOLIC PANEL CPT-4: 84635 09/19/2012 LIPID PANEL CPT-4: 25771 09/19/2012 A1C GLYCOSYLATED HEMOGLOBIN TEST CPT-4: 46574 012 PNEUMOCOCCAL VACC 23 OLIVIA IM CPT-4: 40175 07/10/2012 FLUZONE, 5ML (Medicare) CPT-4: Q2038 07/10/2012 ADMIN INFLUENZA VIRUS VAC CPT-4: G0008 07/10/2012 ADMIN PNEUMOCOCCAL VACCINE CPT-4: G0009 07/10/2012 ROUTINE VENIPUNCTURE CPT-4: 23225 05/06/2012 ASSAY OF FREE THYROXINE CPT-4: 98649 05/06/2012 ASSAY THYROID STIM HORMONE CPT-4: 75301 05/06/2012 COMPREHEN METABOLIC PANEL CPT-4: 96171 05/06/2012 COMPLETE CBC W/AUTO DIFF WBC CPT-4: 80283 05/06/2012 LIPID PANEL CPT-4: 03377 05/06/2012 A1C GLYCOSYLATED HEMOGLOBIN TEST CPT-4: 11565 012 IMMUNIZATION ADMIN CPT-4: 50766 02/05/2012 FLUZONE, 5ML (Medicare) CPT-4: Q2038 08/10/2011 ADMIN INFLUENZA VIRUS VAC CPT-4: G0008 08/10/2011 ROUTINE VENIPUNCTURE CPT-4: 60445 07/26/2011 ASSAY OF FREE THYROXINE CPT-4: 49441 07/26/2011 ASSAY THYROID STIM HORMONE CPT-4: 88780 07/26/2011 COMPREHEN METABOLIC PANEL CPT-4: 72288 07/26/2011 COMPLETE CBC W/AUTO DIFF WBC CPT-4: 97302 07/26/2011 LIPID PANEL CPT-4: 47660 07/26/2011 A1C GLYCOSYLATED HEMOGLOBIN TEST CPT-4: 35005 011 ASSAY OF PSA TOTAL CPT-4: 22862 07/26/2011 ROUTINE VENIPUNCTURE CPT-4: 41710 01/19/2011 ASSAY OF NATRIURETIC PEPTIDE CPT-4: 80855 01/19/2011 THER/PROPH/DIAG INJ SC/IM CPT-4: 01355 01/19/2011 CEFTRIAXONE SODIUM INJECTION CPT-4: J0696 01/19/2011 METHYLPREDNISOLONE INJECTION CPT-4: J2930 01/19/2011 THER/PROPH/DIAG INJ SC/IM CPT-4: 87172 01/19/2011 THER/PROPH/DIAG INJ SC/IM CPT-4: 69294 01/18/2011 CEFTRIAXONE SODIUM INJECTION CPT-4: J0696 01/18/2011 METHYLPREDNISOLONE INJECTION CPT-4: J2930 01/18/2011 THER/PROPH/DIAG INJ SC/IM CPT-4: 98719 01/18/2011 THER/PROPH/DIAG INJ SC/IM CPT-4: 98174 12/21/2010 TESTOSTERONE CYPIONAT 100 MG CPT-4: J1070 12/21/2010 ROUTINE VENIPUNCTURE CPT-4: 75523 12/19/2010 TESTOSTERONE TOTAL - MALE CPT-4: 76269 12/19/2010 ROUTINE VENIPUNCTURE CPT-4: 00760 12/07/2010 COMPLETE CBC W/AUTO DIFF WBC CPT-4: 55780 12/07/2010 COMPREHEN METABOLIC PANEL CPT-4: 92633 12/07/2010 LIPID PANEL CPT-4: 88781 12/07/2010 A1C GLYCOSYLATED HEMOGLOBIN TEST CPT-4: 87866 011 ASSAY OF PSA TOTAL CPT-4: 66226 12/07/2010 ROUTINE VENIPUNCTURE CPT-4: 13678 04/05/2010 PRESCRIP TRANSMIT VIA ERX SY CPT-4: G8553 04/05/2010 ROUTINE VENIPUNCTURE CPT-4: 88977 01/13/2010 METHYLPREDNISOLONE INJECTION CPT-4: J2930 12/22/2009 THER/PROPH/DIAG INJ SC/IM CPT-4: 12154 12/22/2009 THER/PROPH/DIAG INJ SC/IM CPT-4: 75825 12/22/2009 CEFTRIAXONE SODIUM INJECTION CPT-4: J0696 12/22/2009 ROUTINE VENIPUNCTURE CPT-4: 88582 12/22/2009 COMPLETE CBC W/AUTO DIFF WBC CPT-4: 68721 12/22/2009 RBC SED RATE, AUTOMATED CPT-4: 14937 12/22/2009 RPR FE/E/EN/L/M 20.1-30.0 CM CPT-4: 42131 12/22/2009 EKG FOR INITIAL PREVENT EXAM CPT-4: G0403 12/22/2009 THER/PROPH/DIAG INJ SC/IM CPT-4: 20677 12/16/2009 KETOROLAC TROMETHAMINE INJ CPT-4: J1885 12/16/2009 [...] 1: 126/68 Code: 8480-6 BMI: 30.2 Code: 28843-4 Heart Rate 1: 92 bpm Height: 6' Respiratory Rate: 22 bpm SpO2: 94% Tempera ture: 36.9 (C) / 98.5 (F) Weight: 223 lbs 08/21/2018 Blood Pressure 1: 160/70 Code: 8480-6 Heart Rate 1: 79 bpm Respiratory Rate: 20 bpm SpO2: 94% Temperature: 36.7 (C) / 98.0 (F) We ight: 226 lbs 8 oz 08/07/2018 Blood Pressure 1: 138/70 Code: 8480-6 BMI: 30.1 Code: 65767-8 Heart Rate 1: 80 bpm Height: 6' Respiratory Rate: 20 bpm SpO2: 94% Tempera ture: 36.9 (C) / 98.5 (F) Weight: 222 lbs 05/23/2018 Blood Pressure 1: 148/66 Code: 8480-6 BMI: 30.0 Code: 22622-1 Heart Rate 1: 96 bpm Height: 6' Respiratory Rate: 22 bpm SpO2: 94% Tempera ture: 37.3 (C) / 99.1 (F) Weight: 221 lbs 05/02/2018 Blood Pressure 1: 146/78 Code: 8480-6 BMI: 29.6 Code: 02297-0 Heart Rate 1: 78 bpm Height: 6' Respiratory Rate: 26 bpm SpO2: 94% Tempera ture: 35.7 (C) / 96.2 (F) Weight: 218 lbs 04/29/2018 Blood Pressure 1: 142/62 Code: 8480-6 BMI: 28.6 Code: 94248-1 Heart Rate 1: 82 bpm Height: 6' Respiratory Rate: 22 bpm SpO2: 98% Tempera ture: 36.4 (C) / 97.6 (F) Weight: 211 lbs 04/22/2018 Blood Pressure 1: 126/64 Code: 8480-6 BMI: 30.0 Code: 97161-7 Heart Rate 1: 96 bpm Height: 6' [...] 1: 144/78 Code: 8480-6 BMI: 30.7 Code: 52227-8 Heart Rate 1: 92 bpm Height: 6' Respiratory Rate: 28 bpm SpO2: 94% Tempera ture: 36.9 (C) / 98.4 (F) Weight: 226 lbs 12/28/2017 Blood Pressure 1: 136/80 Code: 8480-6 Heart Rate 1: 92 bpm Respiratory Rate: 28 bpm SpO2: 94% Temperature: 36.7 (C) / 98.1 (F) 12/21/2017 Blood Pressure 1: 146/84 Code: 8480-6 BMI: 31.1 Code: 41205-0 Heart Rate 1: 84 bpm Height: 6' [...] 1: 142/64 Code: 8480-6 BMI: 31.3 Code: 67363-1 Heart Rate 1: 98 bpm Height: 6' Respiratory Rate: 24 bpm SpO2: 94% Tempera ture: 36.4 (C) / 97.6 (F) Weight: 231 lbs 10/17/2017 Blood Pressure 1: 140/68 Code: 8480-6 BMI: 31.7 Code: 78698-1 Heart Rate 1: 88 bpm Height: 6' Respiratory Rate: 20 bpm SpO2: 94% Tempera ture: 36.8 (C) / 98.3 (F) Weight: 234 lbs 08/02/2017 Blood Pressure 1: 142/80 Code: 8480-6 BMI: 31.1 Code: 04756-1 Heart Rate 1: 86 bpm Height: 6' Respiratory Rate: 20 bpm SpO2: 90% Tempera ture: 35.9 (C) / 96.7 (F) Weight: 229 lbs 07/02/2017 Blood Pressure 1: 14664 Code: 8480-6 BMI: 29.6 Code: 59642-6 Heart Rate 1: 96 bpm Height: 6' Respiratory Rate: 20 bpm Temperature: 36 .4 (C) / 97.6 (F) Weight: 218 lbs 05/29/2017 Blood Pressure 1: 152/68 Code: 8480-6 BMI: 31.5 Code: 36862-2 Heart Rate 1: 100 bpm Height: 6' Respiratory Rate: 20 bpm SpO2: 92% Tempera ture: 36.9 (C) / 98.4 (F) Weight: 232 lbs 02/01/2017 Blood Pressure 1: 14664 Code: 8480-6 BMI: 30.7 Code: 49621-2 Heart Rate 1: 76 bpm Height: 6' Respiratory Rate: 20 bpm SpO2: 95% Tempera ture: 36.8 (C) / 98.2 (F) Weight: 226 lbs 01/29/2017 Blood Pressure 1: 146/78 Code: 8480-6 Heart Rate 1: 84 bpm Respiratory Rate: 20 bpm SpO2: 96% Temperature: 36.1 (C) / 97.0 (F) We ight: 226 lbs 12/21/2016 Blood Pressure 1: 126/60 Code: 8480-6 BMI: 30.8 Code: 94336-3 Heart Rate 1: 88 bpm Height: 6' Respiratory Rate: 22 bpm SpO2: 94% Tempera ture: 36.7 (C) / 98.0 (F) Weight: 227 lbs 12/14/2016 Blood Pressure 1: 126/70 Code: 8480-6 BMI: 29.8 Code: 93453-8 Heart Rate 1: 92 bpm Height: 6' Respiratory Rate: 22 bpm SpO2: 93% Tempera ture: 36.8 (C) / 98.2 (F) Weight: 220 lbs 11/14/2016 Blood Pressure 1: 128/62 Code: 8480-6 Heart Rate 1: 100 bpm Respiratory Rate: 20 bpm SpO2: 96% Temperature: 36.6 (C) / 97.8 (F) We ight: 220 lbs 10/31/2016 Blood Pressure 1: 142/60 Code: 8480-6 BMI: 30.1 Code: 43131-3 Heart Rate 1: 112 bpm Height: 6' Respiratory Rate: 24 bpm SpO2: 93% Tempera ture: 37.1 (C) / 98.7 (F) Weight: 222 lbs 10/03/2016 Blood Pressure 1: 136/78 Code: 8480-6 Heart Rate 1: 106 bpm Respiratory Rate: 24 bpm SpO2: 93% Temperature: 36.6 (C) / 97.8 (F) We ight: 221 lbs 09/04/2016 Blood Pressure 1: 112/44 Code: 8480-6 BMI: 30.1 Code: 32829-2 Heart Rate 1: 90 bpm Height: 6' Respiratory Rate: 20 bpm SpO2: 93% Tempera ture: 36.6 (C) / 97.9 (F) Weight: 222 lbs 08/22/2016 Blood Pressure 1: 142/68 Code: 8480-6 BMI: 30.4 Code: 22556-5 Heart Rate 1: 100 bpm Height: 6' Respiratory Rate: 24 bpm SpO2: 93% Tempera ture: 36.7 (C) / 98.1 (F) Weight: 224 lbs 08/10/2016 Blood Pressure 1: 134/60 Code: 8480-6 BMI: 30.2 Code: 60138-2 Heart Rate 1: 76 bpm Height: 6' [...] 1: 122/72 Code: 8480-6 BMI: 30.7 Code: 39448-4 Heart Rate 1: 96 bpm Height: 6' Respiratory Rate: 22 bpm SpO2: 96% Tempera ture: 35.9 (C) / 96.7 (F) Weight: 226 lbs 04/03/2016 Blood Pressure 1: 146/64 Code: 8480-6 BMI: 30.8 Code: 28146-0 Heart Rate 1: 76 bpm Height: 6' Respiratory Rate: 20 bpm Temperature: 36 .8 (C) / 98.2 (F) Weight: 227 lbs 03/02/2016 Blood Pressure 1: 148/60 Code: 8480-6 BMI: 31.1 Code: 07946-8 Heart Rate 1: 80 bpm Height: 6' Respiratory Rate: 22 bpm SpO2: 94% Tempera ture: 36.6 (C) / 97.8 (F) Weight: 229 lbs 02/17/2016 Blood Pressure 1: 132/60 Code: 8480-6 BMI: 31.3 Code: 64203-6 Heart Rate 1: 80 bpm Height: 6' Respiratory Rate: 20 bpm Temperature: 36 .9 (C) / 98.4 (F) Weight: 231 lbs 02/14/2016 Blood Pressure 1: 126/70 Code: 8480-6 BMI: 31.3 Code: 05246-3 Heart Rate 1: 80 bpm Height: 6' Respiratory Rate: 24 bpm SpO2: 95% Tempera ture: 36.9 (C) / 98.5 (F) Weight: 231 lbs 01/31/2016 Blood Pressure 1: 136/60 Code: 8480-6 Heart Rate 1: 76 bpm Respiratory Rate: 22 bpm Temperature: 37.0 (C) / 98.6 (F) Weight: 230 lbs 12/30/2015 Blood Pressure 1: 128/58 Code: 8480-6 BMI: 31.2 Code: 64852-0 Heart Rate 1: 80 bpm Height: 6' Respiratory Rate: 20 bpm Temperature: 36 .8 (C) / 98.2 (F) Weight: 230 lbs 12/16/2015 Blood Pressure 1: 122/60 Code: 8480-6 BMI: 32.0 Code: 11001-9 Heart Rate 1: 84 bpm Height: 6' Respiratory Rate: 24 bpm Temperature: 37 .1 (C) / 98.7 (F) Weight: 236 lbs 12/06/2015 Blood Pressure 1: 162/74 Code: 8480-6 BMI: 32.5 Code: 36037-8 Heart Rate 1: 90 bpm Height: 6' Respiratory Rate: 20 bpm SpO2: 96% Tempera ture: 36.4 (C) / 97.6 (F) Weight: 240 lbs 11/15/2015 Blood Pressure 1: 166/80 Code: 8480-6 BMI: 32.4 Code: 84310-7 Heart Rate 1: 92 bpm Height: 6' Respiratory Rate: 28 bpm Temperature: 36 .5 (C) / 97.7 (F) Weight: 239 lbs 10/05/2015 Blood Pressure 1: 146/76 Code: 8480-6 BMI: 32.4 Code: 67523-8 Heart Rate 1: 88 bpm Height: 6' Respiratory Rate: 28 bpm Temperature: 37 .1 (C) / 98.7 (F) Weight: 239 lbs 07/22/2015 Blood Pressure 1: 144/68 Code: 8480-6 BMI: 31.9 Code: 17678-4 Heart Rate 1: 88 bpm Height: 6' [...] 1: 142/64 Code: 8480-6 BMI: 32.1 Code: 92088-9 Heart Rate 1: 80 bpm Height: 6' Respiratory Rate: 18 bpm Temperature: 36 .4 (C) / 97.6 (F) Weight: 237 lbs 06/07/2015 Blood Pressure 1: 164/58 Code: 8480-6 BMI: 32.1 Code: 48705-3 Heart Rate 1: 88 bpm Height: 6' Respiratory Rate: 20 bpm Temperature: 36 .6 (C) / 97.9 (F) Weight: 237 lbs 06/03/2015 Blood Pressure 1: 152/64 Code: 8480-6 BMI: 32.1 Code: 30163-0 Heart Rate 1: 96 bpm Height: 6' Respiratory Rate: 20 bpm Temperature: 37 .4 (C) / 99.3 (F) Weight: 237 lbs 06/01/2015 Blood Pressure 1: 136/70 Code: 8480-6 BMI: 31.7 Code: 09611-4 Heart Rate 1: 72 bpm Height: 6' Respiratory Rate: 22 bpm SpO2: 94% Tempera ture: 36.6 (C) / 97.9 (F) Weight: 234 lbs 02/25/2015 Blood Pressure 1: 146/80 Code: 8480-6 BMI: 32.4 Code: 92978-8 Heart Rate 1: 84 bpm Height: 6' Respiratory Rate: 28 bpm Temperature: 36 .7 (C) / 98.0 (F) Weight: 239 lbs 10/27/2014 Blood Pressure 1: 168/70 Code: 8480-6 BMI: 32.0 Code: 06528-7 Heart Rate 1: 80 bpm Height: 6' Respiratory Rate: 30 bpm SpO2: 98% Tempera ture: 36.4 (C) / 97.6 (F) Weight: 236 lbs 10/21/2014 Blood Pressure 1: 152/58 Code: 8480-6 BMI: 32.1 Code: 42059-6 Heart Rate 1: 78 bpm Height: 6' Respiratory Rate: 20 bpm Temperature: 37 .8 (C) / 100.1 (F) Weight: 237 lbs 10/06/2014 Blood Pressure 1: 132/64 Code: 8480-6 BMI: 32.5 Code: 38601-2 Heart Rate 1: 88 bpm Height: 6' Respiratory Rate: 32 bpm SpO2: 94% Tempera ture: 36.8 (C) / 98.2 (F) Weight: 240 lbs 09/21/2014 Blood Pressure 1: 134/68 Code: 8480-6 BMI: 32.4 Code: 82887-9 Heart Rate 1: 96 bpm Height: 6' Respiratory Rate: 30 bpm Temperature: 36 .7 (C) / 98.1 (F) Weight: 239 lbs 09/08/2014 Blood Pressure 1: 128/74 Code: 8480-6 BMI: 32.4 Code: 26913-9 Heart Rate 1: 82 bpm Height: 6' Respiratory Rate: 28 bpm SpO2: 93% Tempera ture: 36.6 (C) / 97.8 (F) Weight: 239 lbs 09/02/2014 Blood Pressure 1: 164/78 Code: 8480-6 Heart Rate 1: 86 bpm Respiratory Rate: 22 bpm SpO2: 96% Temperature: 36.1 (C) / 97.0 (F) We ight: 239 lbs 08/10/2014 Blood Pressure 1: 152/60 Code: 8480-6 BMI: 32.8 Code: 53401-2 Heart Rate 1: 80 bpm Height: 6' [...] 1: 146/80 Code: 8480-6 BMI: 33.9 Code: 03557-9 Heart Rate 1: 80 bpm Height: 6' [...] 1: 148/78 Code: 8480-6 BMI: 30.5 Code: 66863-2 Heart Rate 1: 84 bpm Height: 6' Respiratory Rate: 28 bpm SpO2: 97% Tempera ture: 36.4 (C) / 97.5 (F) Weight: 225 lbs 08/06/2013 Blood Pressure 1: 158/70 Code: 8480-6 Heart Rate 1: 110 bpm Respiratory Rate: 22 bpm SpO2: 88% Temperature: 39.7 (C) / 103.4 (F) W eight: 07/16/2013 Blood Pressure 1: 148/82 Code: 8480-6 BMI: 31.9 Code: 88135-8 Heart Rate 1: 80 bpm Height: 6' Respiratory Rate: 20 bpm Temperature: 36 .6 (C) / 97.9 (F) Weight: 235 lbs 04/09/2013 Blood Pressure 1: 142/78 Code: 8480-6 BMI: 31.5 Code: 60148-6 Heart Rate 1: 88 bpm Height: 6' Respiratory Rate: 32 bpm SpO2: 95% Tempera ture: 37.0 (C) / 98.6 (F) Weight: 232 lbs 02/11/2013 Blood Pressure 1: 146/70 Code: 8480-6 Heart Rate 1: 88 bpm Respiratory Rate: 20 bpm Temperature: 36.8 (C) / 98.3 (F) Weight: 230 lbs 01/31/2013 Blood Pressure 1: 128/70 Code: 8480-6 BMI: 31.6 Code: 41971-0 Heart Rate 1: 84 bpm Height: 6' Respiratory Rate: 24 bpm SpO2: 92% Tempera ture: 36.7 (C) / 98.0 (F) Weight: 233 lbs 01/20/2013 Blood Pressure 1: 148/64 Code: 8480-6 BMI: 31.6 Code: 01962-9 Heart Rate 1: 68 bpm Height: 6' Temperature: 36.1 (C) / 97.0 (F) Weight: 233 lbs 12/19/2012 Blood Pressure 1: 128/68 Code: 8480-6 BMI: 32.0 Code: 44545-6 Heart Rate 1: 64 bpm Height: 6' Temperature: 36.7 (C) / 98.0 (F) Weight: 236 lbs 10/21/2012 Blood Pressure 1: 142/64 Code: 8480-6 BMI: 30.9 Code: 00028-3 Heart Rate 1: 74 bpm Height: 6' Temperature: 36.2 (C) / 97.1 (F) Weight: 228 lbs 09/18/2012 Blood Pressure 1: 126/60 Code: 8480-6 BMI: 31.3 Code: 70862-7 Heart Rate 1: 88 bpm Height: 6' Respiratory Rate: 20 bpm Temperature: 36 .5 (C) / 97.7 (F) Weight: 231 lbs 08/28/2012 Blood Pressure 1: 132/68 Code: 8480-6 BMI: 31.5 Code: 07679-7 Heart Rate 1: 92 bpm Height: 6' Respiratory Rate: 30 bpm SpO2: 94% Tempera ture: 37.1 (C) / 98.7 (F) Weight: 232 lbs 07/10/2012 Blood Pressure 1: 118/70 Code: 8480-6 BMI: 30.5 Code: 77793-7 Heart Rate 1: 72 bpm Height: 6' Respiratory Rate: 24 bpm SpO2: 96% Tempera ture: 36.7 (C) / 98.0 (F) Weight: 225 lbs 05/09/2012 Blood Pressure 1: 124/68 Code: 8480-6 BMI: 29.8 Code: 23613-4 Heart Rate 1: 72 bpm Height: 6' Respiratory Rate: 20 bpm Temperature: 36 .8 (C) / 98.2 (F) Weight: 220 lbs 10/02/2011 Blood Pressure 1: 140/82 Code: 8480-6 BMI: 30.7 Code: 36075-7 Heart Rate 1: 68 bpm Height: 6' Temperature: 36.7 (C) / 98.0 (F) Weight: 226 lbs 08/07/2011 Blood Pressure 1: 122/68 Code: 8480-6 BMI: 30.5 Code: 17231-2 Heart Rate 1: 72 bpm Height: 6' [...] 1: 140/78 Code: 8480-6 BMI: 31.9 Code: 72245-5 Heart Rate 1: 84 bpm Height: 6' Temperature: 36.6 (C) / 97.8 (F) Weight: 235 lbs 12/22/2009 Blood Pressure 1: 140/74 Code: 8480-6 BMI: 31.9 Code: 79300-3 Heart Rate 1: 94 bpm Height: 6' SpO2: 92% Temperature: 35.7 (C) / 96.2 (F) Weight: 235 lbs 12/13/2009 Blood Pressure 1: 146/80 Code: 8480-6 BMI: 33.0 Code: 72170-6 Heart Rate 1: 86 bpm Height: 6' [...] fighting constantly with her. 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 follow up 05/29/2017 Discuss Low Back [...] nightly. Patient has just been discharged from [place] with Pneumonia. Currently on Levaquin once daily. [...] fwup follow up 03/13/2016 Patient here for [facility] on medication education for insulin use [...] 12/13/2009 Encounters Encounter Performer Location Codes Date ([id number]) OFFICE/OUTPATIENT VISIT EST Diagnosis: Chronic obstructive pulmonary disease with (acute) exacerbation[ICD10: J44.1] Lita HERRMANNQUELINE Ashley [facility] CPT- 4: 97388 12/25/2019 ([id number]) OFFICE/OUTPATIENT VISIT EST Diagnosis: Noncompliance with diabetes treatment[ICD10: Z91.19] Diagnosis: Insomnia[ICD10: G47.00] Diagnosis: Pain in right knee[ICD10: M25.561] Lita Barakat [facility] CPT-4: 52726 12/22/2019 ([id number]) OFFICE/OUTPATIENT VISIT EST Diagnosis: Chronic respiratory failure with hypercapnia[ICD10: J96.12] Diagnosis: Chronic airway obstruction, not elsewhere classified[ICD10: J44.9] Diagnosis: Basal cell carcinoma, face[ICD10: C44.310] Lita HERRMANNQUELINE DonovanFerdinand [facility] CPT-4: 86604 11/12/2019 ([id number]) OFFICE/OUTPATIENT VISIT EST Diagnosis: Chronic obstructive pulmonary disease, unspecified[ICD10: J44.9] Diagnosis: Right thyroid nodule[ICD10: E04.1] Lita GONZALES DonovanFerdinand [facility] CPT-4: 63490 09/11/2019 ([id number]) OFFICE/OUTPATIENT VISIT EST Diagnosis: Chronic bronchitis[ICD10: J42] 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] Diagnosis: FLU VACCINE[ICD10: Z23] Lita CRAWFORD Ashley Osper [facility] [employer] CPT-4: 20092 08/07/2019 ([id number]) OFFICE/OUTPATIENT VISIT EST Diagnosis: Chronic obstructive pulmonary disease with (acute) exacerbation[ICD10: J44.1] Autumn BARAKAT DO [facility] CPT- 4: 19818 07/14/2019 ([id number]) OFFICE/OUTPATIENT VISIT EST Diagnosis: Primary insomnia[ICD10: F51.01] Diagnosis: Dyspepsia and other specified disorders of function of stomach[ICD10: K31.89] Lita BARAKAT DO [facility] CPT-4: 47564 07/01/2019 ([id number]) OFFICE/OUTPATIENT VISIT EST Diagnosis: Epigastric pain[ICD10: R10.13] Diagnosis: Nausea[ICD10: R11.0] Diagnosis: Weight loss[ICD10: R63.4] Lita AREVALO [facility] CPT-4: 15758 06/24/2019 ([id number]) OFFICE/OUTPATIENT VISIT EST Diagnosis: Chronic obstructive pulmonary disease, unspecified[ICD10: J44.9] Diagnosis: Chronic insomnia[ICD10: F51.04] Diagnosis: Anemia[ICD10: D64.9] Diagnosis: Diplopia[ICD10: H53.2] Diagnosis: [place][ICD10: F30.9] Lita BARAKAT DO [facility] CPT-4: 91638 06/17/2019 ([id number]) NURSE/OUTPATIENT VISIT EST Diagnosis: Vitamin B12 deficiency anemia, unspecified[ICD10: D51.9] Lita BARAKAT DO [facility] CPT-4: 95149 06/10/2019 ([id number]) NURSE/OUTPATIENT VISIT EST Diagnosis: Vitamin B12 deficiency anemia, unspecified[ICD10: D51.9] Lita BARAKAT DO [facility] CPT-4: 80991 06/02/2019 ([id number]) NURSE/OUTPATIENT VISIT EST Diagnosis: Vitamin B12 deficiency anemia, unspecified[ICD10: D51.9] Lita BARAKAT DO [facility] CPT-4: 11659 05/27/2019 ([id number]) NURSE/OUTPATIENT VISIT EST Diagnosis: Vitamin B12 deficiency anemia, unspecified[ICD10: D51.9] Lita BARAKAT DO [facility] CPT-4: 82809 05/12/2019 ([id number]) OFFICE/OUTPATIENT VISIT EST Diagnosis: Restless legs syndrome[ICD10: G25.81] Diagnosis: Primary insomnia[ICD10: F51.01] Diagnosis: Anemia, unspecified[ICD10: D64.9] Diagnosis: Type 2 diabetes mellitus with hyperglycemia[ICD10: E11.65] Diagnosis: Vitamin D deficiency, unspecified[ICD10: E55.9] Lita BARAKAT [place] [facility] CPT-4: 61355 05/08/2019 ([id number]) OFFICE/OUTPATIENT VISIT EST Diagnosis: Pain in right knee[ICD10: M25.561] Diagnosis: Restless legs syndrome[ICD10: G25.81] Diagnosis: Insomnia, unspecified[ICD10: G47.00] Lita BARAKAT [place] [facility] CPT-4: 06171 04/07/2019 ([id number]) NO CHARGE Diagnosis: Chronic obstructive pulmonary disease with (acute) exacerbation[ICD10: J44.1] Diagnosis: Dizziness and giddiness[ICD10: R42] Diagnosis: Generalized anxiety disorder[ICD10: F41.1] Autumn BARAKAT [place] [facility] CPT-4: 05159 03/24/2019 ([id number]) OFFICE/OUTPATIENT VISIT EST Diagnosis: Chronic obstructive pulmonary disease with (acute) exacerbation[ICD10: J44.1] Diagnosis: Dizziness and giddiness[ICD10: R42] Autumn CORRAL ELTON Ashley BARAKAT [place] [facility] CPT-4: 24080 03/21/2019 ([id number]) OFFICE/OUTPATIENT VISIT EST Diagnosis: Candidal stomatitis[ICD10: B37.0] Lita ALYOSCAR Segura Ashley BARAKAT [place] [facility] CPT-4: 73335 03/13/2019 ([id number]) OFFICE/OUTPATIENT VISIT EST Diagnosis: Chronic obstructive pulmonary disease with acute lower respiratory infection[ICD10: J44.0] Diagnosis: Restless legs syndrome[ICD10: G25.81] Lita Barakat [facility] TRAN Ashley BARAKAT [place] [facility] CPT-4: 04408 03/10/2019 ([id number]) OFFICE/OUTPATIENT VISIT EST Diagnosis: Restless legs syndrome[ICD10: G25.81] Lita BARAKAT DO [facility] CPT-4: 04235 02/26/2019 ([id number]) OFFICE/OUTPATIENT VISIT EST Diagnosis: Primary insomnia[ICD10: F51.01] Diagnosis: Chronic obstructive pulmonary disease, unspecified[ICD10: J44.9] Lita BARAKAT DO [facility] CPT-4: 31931 02/13/2019 ([id number]) OFFICE/OUTPATIENT VISIT EST Diagnosis: Chronic obstructive pulmonary disease, unspecified[ICD10: J44.9] Diagnosis: Chronic respiratory failure with hypoxia[ICD10: J96.11] Diagnosis: Chronic respiratory failure with hypercapnia[ICD10: J96.12] Lita BARAKAT [place] [facility] CPT-4: 08538 01/14/2019 ([id number]) OFFICE/OUTPATIENT VISIT EST Diagnosis: Chronic respiratory failure with hypoxia[ICD10: J96.11] Diagnosis: Patient's noncompliance with other medical treatment and regimen[ICD10: Z91.19] Diagnosis: Chronic obstructive pulmonary disease with (acute) exacerbation[ICD10: J44.1] Lita BARAKAT [place] [facility] CPT- 4: 77879 12/25/2018 ([id number]) OFFICE/OUTPATIENT VISIT EST Diagnosis: Essential (primary) hypertension[ICD10: I10] Diagnosis: Type 2 diabetes mellitus with hyperglycemia[ICD10: E11.65] Diagnosis: Hypothyroidism, unspecified[ICD10: E03.9] Diagnosis: Hyperlipidemia, unspecified[ICD10: E78.5] Diagnosis: Acute recurrent maxillary sinusitis[ICD10: J01.01] Ines Banerjee LITA BARAKAT [place] [facility] CPT-4: 42456 12/09/2018 ([id number]) OFFICE/OUTPATIENT VISIT EST Diagnosis: Candidal stomatitis[ICD10: B37.0] Lita BARAKAT [place] [facility] CPT-4: 19788 12/05/2018 ([id number]) OFFICE/OUTPATIENT VISIT EST Diagnosis: Acute recurrent sinusitis, unspecified[ICD10: J01.91] Diagnosis: Pain in right knee[ICD10: M25.561] Lita BROWN JANET Ashley BARAKAT DO [facility] CPT-4: 14440 10/23/2018 ([id number]) OFFICE/OUTPATIENT VISIT EST Diagnosis: Restless legs syndrome[ICD10: G25.81] Diagnosis: Basal cell carcinoma of skin of scalp and neck[ICD10: C44.41] Lita BARAKAT DO [facility] CPT-4: 30100 08/21/2018 ([id number]) OFFICE/OUTPATIENT VISIT EST Diagnosis: Chronic obstructive pulmonary disease with acute lower respiratory infection[ICD10: J44.0] Diagnosis: Restless legs syndrome[ICD10: G25.81] Lita BARAKAT [facility] CPT-4: 21692 08/07/2018 ([id number]) OFFICE/OUTPATIENT VISIT EST Diagnosis: Chronic obstructive pulmonary disease with acute lower respiratory infection[ICD10: J44.0] Lita BARAKAT [facility] CPT-4: 51101 05/23/2018 ([id number]) OFFICE/OUTPATIENT VISIT EST Diagnosis: Candidal stomatitis[ICD10: B37.0] Lita BARAKAT [facility] CPT-4: 11609 05/02/2018 ([id number]) OFFICE/OUTPATIENT VISIT EST Diagnosis: Candidal stomatitis[ICD10: B37.0] Diagnosis: Other retention of urine[ICD10: R33.8] Diagnosis: Chronic obstructive pulmonary disease with acute lower respiratory infection[ICD10: J44.0] Autumn BARAKAT [facility] CPT-4: 30683 04/29/2018 ([id number]) OFFICE/OUTPATIENT VISIT EST Diagnosis: Chronic obstructive pulmonary disease with acute lower respiratory infection[ICD10: J44.0] Lita BARAKAT DO [facility] CPT-4: 90889 04/22/2018 ([id number]) OFFICE/OUTPATIENT VISIT EST Diagnosis: Unilateral primary osteoarthritis, right knee[ICD10: M17.11] Diagnosis: Squamous cell carcinoma of skin, unspecified[ICD10: C44.92] Litacarol BARAKAT DO [facility] CPT-4: 29138 01/28/2018 ([id number]) OFFICE/OUTPATIENT VISIT EST Diagnosis: Pain in right knee[ICD10: M25.561] Diagnosis: 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] Lita BARAKAT DO [facility] CPT-4: 80050 01/23/2018 ([id number]) OFFICE/OUTPATIENT VISIT EST Diagnosis: Urinary tract infection, site not specified[ICD10: N39.0] Diagnosis: Chronic obstructive pulmonary disease with acute lower respiratory infection[ICD10: J44.0] Lita BARAKAT DO [facility] CPT-4: 60454 01/02/2018 ([id number]) OFFICE/OUTPATIENT VISIT EST Diagnosis: Chronic obstructive pulmonary disease with (acute) exacerbation[ICD10: J44.1] Autumn BARAKAT DO [facility] CPT- 4: 60847 12/28/2017 ([id number]) OFFICE/OUTPATIENT VISIT EST Diagnosis: Acute bronchitis, unspecified[ICD10: J20.9] Autumn BARAKAT DO [facility] CPT-4: 01626 12/21/2017 ([id number]) OFFICE/OUTPATIENT VISIT EST Diagnosis: Chronic obstructive pulmonary disease with acute lower respiratory infection[ICD10: J44.0] Diagnosis: Pain in right knee[ICD10: M25.561] Autumn BARAKAT DO [facility] CPT-4: 21499 12/17/2017 ([id number]) OFFICE/OUTPATIENT VISIT EST Diagnosis: Laceration without foreign body of right hand, sequela[ICD10: S61.411S] Diagnosis: Restless legs syndrome[ICD10: G25.81] Lita BARAKAT DO [facility] CPT-4: 14939 10/17/2017 OFFICE/OUTPATIENT VISIT EST Diagnosis: Chronic obstructive pulmonary disease with acute lower respiratory infection[ICD10: J44.0] Autumn BARAKAT DO [facility] CPT-4: 30216 08/02/2017 ([id number]) OFFICE/OUTPATIENT VISIT EST Diagnosis: PNEUMOCOCCAL VACCINE[ICD10: Z23] Lita BARAKAT [facility] CPT-4: 13152 07/24/2017 OFFICE/OUTPATIENT VISIT EST Diagnosis: Chronic obstructive pulmonary disease with (acute) exacerbation[ICD10: J44.1] Autumn BARAKAT [facility] CPT- 4: 20339 07/02/2017 OFFICE/OUTPATIENT VISIT EST Diagnosis: Low back pain[ICD10: M54.5] Ruchi CRAWFORD Ashley De Los Santos [facility] CPT-4: 14813 05/29/2017 ([id number]) OFFICE/OUTPATIENT VISIT EST Diagnosis: Essential (primary) hypertension[ICD10: I10] Diagnosis: Hypothyroidism, unspecified[ICD10: E03.9] Diagnosis: Dizziness and giddiness[ICD10: R42] Diagnosis: Other abnormality of red blood cells[ICD10: R71.8] Diagnosis: Contracture of muscle, unspecified site[ICD10: M62.40] Lita BARAKAT [facility] CPT-4: 39558 04/17/2017 OFFICE/OUTPATIENT VISIT EST Diagnosis: Pain in left shoulder[ICD10: M25.512] Ruchi PIEDRA MARC DonovanFerdinand [facility] CPT-4: 37220 01/29/2017 ([id number]) OFFICE/OUTPATIENT VISIT EST Diagnosis: Anemia, unspecified[ICD10: D64.9] Lita Jasminjosefbev ALYOSCAR Segura DonovanFerdinand [facility] CPT-4: 70022 12/27/2016 ([id number]) OFFICE/OUTPATIENT VISIT EST Diagnosis: Other fatigue[ICD10: R53.83] Diagnosis: Other iron deficiency anemias[ICD10: D50.8] Lita ALYLINE Ashley BARAKAT [facility] CPT-4: 01204 12/21/2016 ([id number]) OFFICE/OUTPATIENT VISIT EST Diagnosis: Anemia, unspecified[ICD10: D64.9] Diagnosis: Other fatigue[ICD10: R53.83] Diagnosis: Restless legs syndrome[ICD10: G25.81] Lita TRAN DonovanFerdinand [facility] CPT-4: 93212 12/14/2016 ([id number]) OFFICE/OUTPATIENT VISIT EST Diagnosis: Anemia, unspecified[ICD10: D64.9] Diagnosis: Other abnormality of red blood cells[ICD10: R71.8] Lita BARAKAT [facility] CPT-4: 84479 12/12/2016 ([id number]) OFFICE/OUTPATIENT VISIT EST Diagnosis: Pneumonia, unspecified organism[ICD10: J18.9] Diagnosis: Restless legs syndrome[ICD10: G25.81] Magda BARAKAT [facility] CPT-4: 93032 11/14/2016 ([id number]) OFFICE/OUTPATIENT VISIT EST Diagnosis: Candidal stomatitis[ICD10: B37.0] Lita GOODE Daja Ashley [facility] CPT-[facility]: 48265 10/31/2016 ([id number]) OFFICE/OUTPATIENT VISIT EST Diagnosis: Acute upper respiratory infection, unspecified[ICD10: J06.9] Diagnosis: Personal history of pneumonia (recurrent)[ICD10: Z87.01] Magda BARAKAT [facility] CPT-4: 65984 10/03/2016 ([id number]) OFFICE/OUTPATIENT VISIT EST Diagnosis: Restless legs syndrome[ICD10: G25.81] Diagnosis: Insomnia, unspecified[ICD10: G47.00] Magda BARAKAT [facility] CPT-4: 23366 09/04/2016 ([id number]) OFFICE/OUTPATIENT VISIT EST Diagnosis: Restless legs syndrome[ICD10: G25.81] Diagnosis: Primary insomnia[ICD10: F51.01] Lita ALYLINE Ashley BARAKAT [facility] CPT-4: 45660 08/10/2016 OFFICE/OUTPATIENT VISIT EST Diagnosis: Toxic gastroenteritis and colitis[ICD10: K52.1] Diagnosis: Dizziness and giddiness[ICD10: R42] Diagnosis: Headache[ICD10: R51] Diagnosis: Restless legs syndrome[ICD10: G25.81] Litacarol AGNE Ashley BARAKAT [facility] CPT-4: 58172 07/06/2016 ([id number]) OFFICE/OUTPATIENT VISIT EST Diagnosis: Chest pain, unspecified[ICD10: R07.9] Diagnosis: Dyspnea, unspecified[ICD10: R06.00] Magda [facility] CPT-[facility]: 97048 06/22/2016 ([id number]) OFFICE/OUTPATIENT VISIT EST 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] Diagnosis: PNEUMOCOCCAL VACCINE[ICD10: Z23] Diagnosis: FLU VACCINE[ICD10: Z23] Lita ALYLINE Ashley [facility] CPT-4: 98118 06/13/2016 ([id number]) OFFICE/OUTPATIENT VISIT EST Diagnosis: Chest pain, unspecified[ICD10: R07.9] Diagnosis: Other forms of dyspnea[ICD10: R06.09] Diagnosis: Shortness of breath[ICD10: R06.02] Diagnosis: Other fatigue[ICD10: R53.83] Magda ALYLINE Ashley [facility] CPT-4: 51156 06/01/2016 ([id number]) OFFICE/OUTPATIENT VISIT EST Diagnosis: Unspecified hearing loss, left ear[ICD10: H91.92] Diagnosis: Other specified disorders of Eustachian tube, left ear[ICD10: H69.82] Magda [facility] CPT-4: 65097 11/2015 ([id number]) OFFICE/OUTPATIENT VISIT EST Diagnosis: Impacted cerumen, bilateral[ICD10: H61.23] Diagnosis: DM W/O COMPLICATION TYPE I, 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: E10.9] Diagnosis: Generalized anxiety disorder[ICD10: F41.1] Lita Gasper ALYLINE Ashley [facility] CPT-4: 20166 04/03/2016 ([id number]) OFFICE/OUTPATIENT VISIT EST Diagnosis: 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] Lita Gasper ALYLINE Ashley [facility] CPT - 4: 92694 03/13/2016 ([id number]) OFFICE/OUTPATIENT VISIT EST Diagnosis: Type 2 diabetes mellitus with hyperglycemia[ICD10: E11.65] Diagnosis: Hyperlipidemia, unspecified[ICD10: E78.5] Diagnosis: Essential (primary) hypertension[ICD10: I10] Diagnosis: Chronic obstructive pulmonary disease, unspecified[ICD10: J44.9] Diagnosis: Testicular hypofunction[ICD10: E29.1] Diagnosis: Male erectile dysfunction, unspecified[ICD10: N52.9] Diagnosis: Anemia, unspecified[ICD10: D64.9] Lita ALYOSCAR BARAKAT [place] [facility] CPT-4: 11856 03/06/2016 ([id number]) OFFICE/OUTPATIENT VISIT EST Diagnosis: Type 2 diabetes mellitus with hyperglycemia[ICD10: E11.65] Diagnosis: Hyperlipidemia, unspecified[ICD10: E78.5] Diagnosis: Chronic obstructive pulmonary disease, unspecified[ICD10: J44.9] Diagnosis: Male erectile dysfunction, unspecified[ICD10: N52.9] Lita Jasminjosefbev LITA Ashley BARAKAT [facility] CPT-4: 45084 03/02/2016 ([id number]) OFFICE/OUTPATIENT VISIT EST Diagnosis: Pain in right foot[ICD10: M79.671] Magda GONZALES Aslhey BARAKAT [place] [facility] CPT-4: 11325 02/14/2016 OFFICE/OUTPATIENT VISIT EST Diagnosis: Generalized anxiety disorder[ICD10: F41.1] Lita Gasper ALYLINE Ashley BARAKAT [facility] CPT-4: 20612 01/31/2016 ([id number]) OFFICE/OUTPATIENT VISIT EST Diagnosis: Generalized anxiety disorder[ICD10: F41.1] Lita Gasper LITA Ashley BARAKAT [facility] CPT-4: 04627 12/30/2015 ([id number]) OFFICE/OUTPATIENT VISIT EST Diagnosis: Localized swelling, mass and lump, neck[ICD10: R22.1] Lita Gasper LITA Ashley BARAKAT [place] [facility] CPT-4: 30691 12/16/2015 OFFICE/OUTPATIENT VISIT EST Diagnosis: Localized enlarged lymph nodes[ICD10: R59.0] Diagnosis: Otalgia, left ear[ICD10: H92.02] Stephanie HERRMANNQUELINE Ashley BARAKAT [place] [facility] CPT-4: 72467 12/06/2015 OFFICE/OUTPATIENT VISIT EST Diagnosis: Localized enlarged lymph nodes[ICD10: R59.0] Diagnosis: Squamous cell carcinoma of skin, unspecified[ICD10: C44.92] Diagnosis: Actinic keratosis[ICD10: L57.0] Stephanie BARAKAT DO [facility] CPT-4: 63639 11/15/2015 OFFICE/OUTPATIENT VISIT EST Diagnosis: Cellulitis of left lower limb[ICD10: L03.116] Diagnosis: Encounter for examination and observation for other specified reasons[ICD10: Z04.8] Diagnosis: Chronic obstructive pulmonary disease, unspecified[ICD10: J44.9] Stephanie BARAKAT DO [facility] CPT-4: 78949 07/22/2015 OFFICE/OUTPATIENT VISIT EST Diagnosis: Other specified joint disorders, left knee[ICD10: M25.862] Diagnosis: Cellulitis of left lower limb[ICD10: L03.116] Diagnosis: Other fatigue[ICD10: R53.83] Diagnosis: Hyperlipidemia, unspecified[ICD10: E78.5] Stephanie BARAKAT [place] [facility] CPT-4: 49306 07/01/2015 OFFICE/OUTPATIENT VISIT EST Diagnosis: Pain in left knee[ICD10: M25.562] Diagnosis: Cellulitis of left lower limb[ICD10: L03.116] Diagnosis: Other specified joint disorders, left knee[ICD10: M25.862] Stephanie BARAKAT DO [facility] CPT-4: 40358 06/28/2015 OFFICE/OUTPATIENT VISIT EST Diagnosis: PREPATELLAR BURSITIS[ICD9: 726.65] Diagnosis: Cellulitis of knee, left[ICD9: 682.6] Stephanie EspinozaAshleyisabella ALIZEONIEL AGNE DonovanFerdinand [facility] CPT-4: 54549 06/09/2015 ([id number]) OFFICE/OUTPATIENT VISIT EST Diagnosis: PREPATELLAR BURSITIS[ICD9: 726.65] Diagnosis: Cellulitis of knee, left[ICD9: 682.6] Lita Jasminbetty PIEDRA MARC DonovanFerdinand [facility] [place] [facility] CPT-4: 59575 06/07/2015 OFFICE/OUTPATIENT VISIT EST Diagnosis: Cellulitis of knee, left[ICD9: 682.6] Stephanie VanAshleyrachellere TADEO BARAKAT [facility] CPT-4: 46163 06/03/2015 ([id number]) OFFICE/OUTPATIENT VISIT EST Diagnosis: DM W/O COMPLICATION TYPE II, UNCONTROLLED[ICD9: 250.02] Diagnosis: COPD[ICD9: 496] Lita BARAKAT [facility] CPT- 4: 57075 06/01/2015 ([id number]) OFFICE/OUTPATIENT VISIT EST Diagnosis: COPD[ICD9: 496] Diagnosis: DYSPNEA[ICD9: 786.09] Diagnosis: DM W/O COMPLICATION TYPE II, UNCONTROLLED[ICD9: 250.02] Diagnosis: Actinic keratosis[ICD9: 702.0] Lita BARAKAT [facility] CPT-4: 63048 02/25/2015 ([id number]) OFFICE/OUTPATIENT VISIT EST Diagnosis: ASTHMA NOS[ICD9: 493.90] Diagnosis: COPD[ICD9: 496] Diagnosis: DM W/O COMPLICATION TYPE II, UNCONTROLLED[ICD9: 250.02] Lita BARAKAT [facility] CPT-4: 16423 10/27/2014 OFFICE/OUTPATIENT VISIT EST Diagnosis: DYSPNEA[ICD9: 786.09] Diagnosis: COPD[ICD9: 496] Lita BARAKAT [facility] CPT- 4: 37880 10/06/2014 ([id number]) OFFICE/OUTPATIENT VISIT EST Diagnosis: PNEUMONIA, ORGANISM[ICD9: 486] Diagnosis: COPD[ICD9: 496] Diagnosis: DYSPNEA[ICD9: 786.09] Lita BARAKAT [facility] CPT-4: 48992 09/21/2014 OFFICE/OUTPATIENT VISIT EST Diagnosis: PNEUMONIA, ORGANISM[ICD9: 486] Diagnosis: DYSPNEA[ICD9: 786.09] Diagnosis: COUGH[ICD9: 786.2] Stephanie BARAKAT [facility] CPT-4: 28508 09/08/2014 OFFICE/OUTPATIENT VISIT EST Diagnosis: COPD with exacerbation[ICD9: 491.21] Diagnosis: COUGH[ICD9: 786.2] Diagnosis: DYSPNEA[ICD9: 786.09] Stephanie BARAKAT [facility] CPT-4: 40696 09/02/2014 ([id number]) OFFICE/OUTPATIENT VISIT EST Diagnosis: DM W/O COMPLICATION TYPE II, UNCONTROLLED[ICD9: 250.02] Lita BARAKAT [facility] CPT-4: 14257 08/27/2014 ([id number]) OFFICE/OUTPATIENT VISIT EST Diagnosis: DM W/O COMPLICATION TYPE II, UNCONTROLLED[ICD9: 250.02] Diagnosis: HYPERLIPIDEMIA NEC/NOS[ICD9: 272.4] Diagnosis: HYPERTENSION[ICD9: 401.9] Diagnosis: COPD[ICD9: 496] Diagnosis: FLU VACCINE[ICD10: Z23] Lita PABLO [facility] CPT-4: 30188 08/05/2014 ([id number]) OFFICE/OUTPATIENT VISIT EST Diagnosis: COPD[ICD9: 496] Diagnosis: Lumbar degenerative disc disease[ICD9: 722.52] Lita BARAKAT [facility] CPT-4: 90679 05/05/2014 OFFICE/OUTPATIENT VISIT EST Diagnosis: DYSPNEA[ICD9: 786.09] Diagnosis: COPD[ICD9: 496] Lita BARAKAT [facility] CPT- 4: 26262 03/24/2014 ([id number]) OFFICE/OUTPATIENT VISIT EST Diagnosis: COPD[ICD9: 496] Diagnosis: DYSPNEA[ICD9: 786.09] Lita BARAKAT [facility] CPT-4: 54115 03/10/2014 OFFICE/OUTPATIENT VISIT EST Diagnosis: Subacromial bursitis[ICD9: 726.19] Diagnosis: Chronic low back pain[ICD9: 724.2] Diagnosis: Lumbar degenerative disc disease[ICD9: 722.52] Lita ALYLINE Ashley BARAKAT [facility] CPT-4: 00089 12/16/2013 ([id number]) OFFICE/OUTPATIENT VISIT EST Diagnosis: PHARYNGITIS, ACUTE[ICD9: 462] Diagnosis: COPD[ICD9: 496] Litacarol ALYLINE DonovanFerdinand [facility] CPT- 4: 67126 10/09/2013 OFFICE/OUTPATIENT VISIT EST Diagnosis: COPD[ICD9: 496] Diagnosis: Acute exacerbation of chronic obstructive pulmonary disease (COPD)[ICD9: 491.21] Ruchi [facility] C[facility]: 67521 09/18/2013 ([id number]) OFFICE/OUTPATIENT VISIT EST Diagnosis: PNEUMONIA, ORGANISM[ICD9: 486] Diagnosis: DM W/O COMPLICATION TYPE II[ICD9: 250.00] Lita Ramirez [facility] CPT-4: 30640 08/13/2013 ([id number]) OFFICE/OUTPATIENT VISIT EST Diagnosis: DM W/O COMPLICATION TYPE II, UNCONTROLLED[ICD9: 250.02] Diagnosis: HYPERLIPIDEMIA NEC/NOS[ICD9: 272.4] Diagnosis: HYPERTENSION[ICD9: 401.9] Diagnosis: DYSPNEA[ICD9: 786.09] Diagnosis: Family history of CABG[ICD9: V17.49] Lita Ramirez [facility] CPT-4: 60916 07/16/2013 ([id number]) OFFICE/OUTPATIENT VISIT EST Diagnosis: DM W/O COMPLICATION TYPE II, UNCONTROLLED[ICD9: 250.02] Diagnosis: HYPERLIPIDEMIA NEC/NOS[ICD9: 272.4] Diagnosis: HYPERTENSION[ICD9: 401.9] Lita Ramirez [facility] CPT-[facility]: 27817 06/25/2013 OFFICE/OUTPATIENT VISIT EST Diagnosis: COUGH[ICD9: 786.2] Diagnosis: COPD[ICD9: 496] Kimberly Ramirez [facility] CPT- 4: 92067 04/09/2013 ([id number]) OFFICE/OUTPATIENT VISIT EST Diagnosis: Muscle spasm[ICD9: 728.85] Diagnosis: ARTHRALGIA-MULTIPLE SITES[ICD9: 719.49] Lita [facility] CPT-[facility]: 14279 02/11/2013 OFFICE/OUTPATIENT VISIT EST Diagnosis: COPD with exacerbation[ICD9: 491.21] Diagnosis: BRONCHITIS, ACUTE[ICD9: 466.0] [facility] 12903 01/31/2013 OFFICE/OUTPATIENT VISIT EST Diagnosis: COUGH[ICD9: 786.2] Diagnosis: PHARYNGITIS, ACUTE[ICD9: 462] Diagnosis: SINUSITIS, ACUTE[ICD9: 461.9] Lita BARAKAT [facility] CPT-4: 66280 01/20/2013 OFFICE/OUTPATIENT VISIT EST Diagnosis: DIZZINESS/VERTIGO[ICD9: 780.4] Lita BARAKAT [facility] CPT-4: 53059 12/19/2012 OFFICE/OUTPATIENT VISIT EST Diagnosis: Skin lesion of left arm[ICD9: 709.9] Diagnosis: Otitis externa[ICD9: 380.10] Diagnosis: PHARYNGITIS, ACUTE[ICD9: 462] Lita BARAKAT [facility] CPT-4: 46292 10/21/2012 ([id number]) OFFICE/OUTPATIENT VISIT EST Diagnosis: DM W/O COMPLICATION TYPE II, UNCONTROLLED[ICD9: 250.02] Diagnosis: HYPERLIPIDEMIA NEC/NOS[ICD9: 272.4] Diagnosis: HYPERTENSION[ICD9: 401.9] Lita AREVALO [facility] CPT-4: 69103 09/19/2012 ([id number]) OFFICE/OUTPATIENT VISIT EST Diagnosis: DM W/O COMPLICATION TYPE II, UNCONTROLLED[ICD9: 250.02] Diagnosis: HYPERLIPIDEMIA NEC/NOS[ICD9: 272.4] Diagnosis: COPD[ICD9: 496] Lita BARAKAT [facility] CPT- 4: 53989 09/18/2012 ([id number]) OFFICE/OUTPATIENT VISIT EST Diagnosis: BRONCHITIS, ACUTE[ICD9: 466.0] Diagnosis: SINUSITIS, ACUTE[ICD9: 461.9] Lita BARAKAT [facility] CPT-4: 88856 08/28/2012 ([id number]) OFFICE/OUTPATIENT VISIT EST Diagnosis: COPD[ICD9: 496] Diagnosis: DYSPNEA[ICD9: 786.09] Diagnosis: VAC STREP PNEUMONIAE-FLU (Medicare)[ICD9: V06.6] Lita BARAKAT [facility] CPT-4: 01258 07/10/2012 ([id number]) OFFICE/OUTPATIENT VISIT EST Diagnosis: DM W/O COMPLICATION TYPE II, UNCONTROLLED[ICD9: 250.02] Diagnosis: HYPERTENSION[ICD9: 401.9] Diagnosis: HYPERLIPIDEMIA NEC/NOS[ICD9: 272.4] Diagnosis: DIZZINESS/VERTIGO[ICD9: 780.4] Lita Archerjosefbev ALYLITA Donovan Ferdinand [facility] CPT-4: 48433 05/09/2012 ([id number]) OFFICE/OUTPATIENT VISIT EST Diagnosis: DM W/O COMPLICATION TYPE II, UNCONTROLLED[ICD9: 250.02] Diagnosis: HYPERLIPIDEMIA NEC/NOS[ICD9: 272.4] Diagnosis: HYPERTENSION[ICD9: 401.9] Diagnosis: MALAISE AND FATIGUE[ICD9: 780.79] Lita Jasminbetty Segura DonovanFerdinand [facility] CPT-4: 38947 05/06/2012 OFFICE/OUTPATIENT VISIT EST Diagnosis: COUGH[ICD9: 786.2] Diagnosis: SINUSITIS, ACUTE[ICD9: 461.9] Diagnosis: PHARYNGITIS, ACUTE[ICD9: 462] Lita Jasminjosefbev LITA Ashley ARCHERNDER [facility] CPT-4: 11077 10/02/2011 OFFICE/OUTPATIENT VISIT EST Diagnosis: DM W/O COMPLICATION TYPE II, UNCONTROLLED[ICD9: 250.02] Diagnosis: HYPERLIPIDEMIA NEC/NOS[ICD9: 272.4] Diagnosis: HYPERTENSION[ICD9: 401.9] Diagnosis: COPD[ICD9: 496] Lita CRAWFORD DonovanFerdinand JAS[facility]ER [facility] CPT- 4: 04292 08/07/2011 OFFICE/OUTPATIENT VISIT EST Lita CRAWFORD DonoavnFerdinand JASMIN NDER [facility] CPT- 4: 28244 04/03/2011 ([id number]) OFFICE/OUTPATIENT VISIT EST Lita TOBAR SUZANNE SFerdinand [facility]ER [facility] CPT-4: 08806 01/18/2011 ([id number]) OFFICE/OUTPATIENT VISIT EST Lita TOBAR SUZANNE SFerdinand [facility] CPT-4: 75564 12/19/2010 ([id number]) OFFICE/OUTPATIENT VISIT, EST Lita HOLMAN DonovanFerdinand [facility] CPT-4: 43198 04/05/2010 ([id number]) OFFICE/OUTPATIENT VISIT, EST Lita [facility] CPT-4: 62883 01/13/2010 ([id number]) OFFICE/OUTPATIENT VISIT, EST Lita [facility] CPT-4: 37010 12/23/2009 ([id number]) OFFICE/OUTPATIENT VISIT, EST Lita [facility] CPT-4: 00708 12/22/2009 ([id number]) OFFICE/OUTPATIENT VISIT, EST Lita [facility] CPT-4: 89706 12/13/2009 Plan of Care Planned Activity Notes Codes Status Date Visit Diagnosis Plan: Chronic obstructiv e pulmonary disease with (acute) exacerbation Discussion: Solumedrol 125mg IM Continue SVNs every 4hrs Prednisone for 1 week COVID-19 precautions ICD-9 : 491.21 ICD-10 : J44.1 12/25/2019 Appointment: Lita Barakat WPtel: [phone] [facility] FOLLOW UP 12/25/2019 Patient Education: prednisone- Optimize[employer] Coupon [id number] https://www.[employer]/sampleGlobal Active/resources/getResource/61/po7cf2t8-9r5n-550o-29 Completed 12/25/2019 Visit Diagnosis Plan: Noncompliance with [...] M25.561 12/22/2019 Appointment: Lita Barakat WPtel: [phone] [facility] US TELEMEDICINE 12/22/2019 Patient Education: baclofen- Optimize[employer] Coupon [id number] https://www.samplemd.com/samplemd/resources/getResource/61/yf1rd837-clh3-1jr8-70 Completed 12/22/2019 Visit Diagnosis Plan: Chronic respiratory [...] : C44.310 11/12/2019 Appointment: Lita Barakat WPtel: [address] [place], [place] [address] [place] ACUTE ILLNESS 11/12/2019 Care Plan: Referral Order SNOMED-CT : 30 [id number] Pending 11/12/2019 Care Plan: Referral Order SNOMED-CT : 30 7384032 Pending 11/12/2019 Visit Diagnosis Plan: Right thyroid nodule Discussion: Check thyroid US ICD-9 : 241.0 ICD-10 : E04.1 09/11/2019 Visit Diagnosis Plan: Chronic obstructive pulmonary di sease, unspecified Discussion: Start Pulmonary Rehab Reviewed results of CT of chest ordered by pulmonology Follow Up: 3 months ICD-9 : 496 ICD-10 : J44.9 09/11/2019 Appointment: Lita Barakat [facility]el[facility] [place] [facility] 09/11/2019 Care Plan: US EXAM OF HEAD AND NECK LOIN C : 45575-7 Pending 09/11/2019 Visit Diagnosis Plan: Chronic bronchitis Discussion: A ugmentin for 10 days ICD-9 : 491.9 ICD-10 : J42 08/07/2019 Appointment: Lita Barakat WPtel: [facility] ACUTE ILLNESS 08/07/2019 Visit Diagnosis Plan: [...] him that overuse of symbicort can cause exterminator helper damage and the albuterol is to be used every 4 hours as needed. call office later this week with worsening or no improvement ICD-9 : 491.21 ICD-10 : J44.1 07/14/2019 Appointment: Autumn Oneil [address] [place] [address] ACUTE ILLNESS 07/14/2019 Visit Diagnosis Plan: Dyspepsia [...] F51.01 07/01/2019 Appointment: Lita Barakat WPtel: [phone] FOLLOW UP 07/01/2019 Care Plan: CT ABDOMEN W/O DYE LOINC : 36 103-0 Pending 07/01/2019 Care Plan: Referral Order SNOMED-CT : 30 3165052 Pending 07/01/2019 Visit Diagnosis Plan: Weight loss [...] R10.13 06/24/2019 Appointment: Lita [facility]at [facility]Ptel[facility] [phone] [facility] [facility] 06/24/2019 Patient Education: Seroquel- [employer] Coupon [id number] https://www.[employer]/Outsell/resources/getResource/61/1jb6q8i0-f273-36q3-95 Completed 06/24/2019 Patient Education: ondansetron HCl- [employer] Coupon [id number] https://www.[employer]/Outsell/resources/getResource/61/0671255h-4423-55t6-d2 Completed 06/24/2019 Care Plan: US EXAM ABDOM COMPLETE LOINC : 06307-1 Pending 06/24/2019 Visit Diagnosis Plan: Chronic insomnia [...] : H53.2 06/17/2019 Appointment: Lita Barakat WPtel: [address] [place], [place] [phone] [place] FOLLOW UP 06/17/2019 Appointment: Lita Barakat WPtel: [address] [place], [place] [phone] [place] INJECTION 06/10/2019 Appointment: Lita Barakat WPtel: [address] [place], [place] [phone] [place] INJECTION 06/02/2019 Appointment: Lita Barakat WPtel: [address] [place] [address] [place] INJECTION 05/27/2019 Appointment: Lita Barakat WPtel: [address] [place] [address] [place] INJECTION 05/12/2019 Visit Diagnosis Plan: Anemia, [...] : E55.9 05/08/2019 Appointment: Lita Barakat WPtel: [address] [place], [place] [phone] [place] FOLLOW UP 05/08/2019 Visit Diagnosis Plan: Pain in right knee Discussion: S top tramadol and tylenol q HS Trial of Hydrocodone 10/325mg po q HS Recheck 1month ICD-9 : 719.46 ICD-10 : M25.561 04/07/2019 Appointment: Lita Barakat WPtel: [phone] [facility] [id number] [facility] Follow Up 04/07/2019 Visit Diagnosis Plan: [...] : F41.1 03/24/2019 [facility] [facility] 03/24/2019 Patient Education: hydroxyzine HCl- Optimize[employer] Coupon [id number] Completed 03/24/2019 Patient Education: pantoprazole- [employer] Coupon [id number] Completed 03/24/2019 Visit Diagnosis Plan: Chronic obstructiv e pulmonary disease with (acute) exacerbation Discussion: 90 mg solumedrol given in of fice. patient's portable oxygen tank was empty. [id number] patient on importance of monitoring oxygen tank [...] ICD-10 : R42 03/21/2019 Appointment: Autumn Oneil [address] [place] [address] ACUTE ILLNESS 03/21/2019 Patient Education: ipratropium-albuterol- OptimizeRX C oupon [id number] https://www.[employer]/samplemd/resources/getResource/61/e3qs86c6-b4y1-7i4v-84 Completed 03/21/2019 Visit Diagnosis Plan: Chronic obstructiv e pulmonary disease with (acute) exacerbation Discussion: Solumedrol now Use SVNs with duoneb at least q4hrs Patient is supposed to be on continuous oxygen but not wearing ICD-9 : 491.21 ICD-10 : J44.1 03/13/2019 Visit Diagnosis Plan: Candidal stomatitis Discussion: Diflucan and Nystatin susp ICD-9 : 112.0 ICD-10 : B37.0 03/13/2019 Appointment: Lita Barakat WPtel: [phone] ACUTE ILLNESS 03/13/2019 Patient Education: losartan- Opt[employer] Coupon [id number] Completed 03/13/2019 Patient Education: nystatin- [employer] [id number] Completed 03/13/2019 Patient Education: fluconazole- [employer] [id number] Completed 03/13/2019 Visit Diagnosis Plan: Chronic obstructiv [...] : G25.81 03/10/2019 Appointment: Lita Barakat WPtel: [address] [place], [place] [phone] ACUTE ILLNESS 03/10/2019 Visit Diagnosis Plan: Restless legs syndrome Discussio n: Stop requip Increase sinemet to TID Add children's chewable MV with iron BID Add magnesium oxide 400mg daily Add Lyrica 75mg po q HS Stop trazadone Recheck 3 weeks Follow Up: 3 weeks ICD-9 : 333.94 ICD-10 : G25.81 02/26/2019 Appointment: Lita Barakat WPtel: [address] [place], [place] [phone] ACUTE ILLNESS 02/26/2019 Visit Diagnosis Plan: Primary insomnia Discussion: Tri al of doxepin 10-20mg po q HS prn sleep ICD-9 : 780.52 ICD-10 : F51.01 02/13/2019 Visit Diagnosis Plan: Chronic obstructive pulmonary di sease, unspecified Discussion: Stable Discussed trip to [place]--will get oxygen setup through [facility] ICD-9 : 496 ICD-10 : J44.9 02/13/2019 Appointment: Lita Barakat WPtel: [address] [place] [address] FOLLOW UP 02/13/2019 Patient Education: doxepin- [employer] [id number] https://www.[employer]/samplemd/resources/getResource/61/[email or web address] Completed 02/13/2019 Appointment: Lita Barakat WPtel: [address] [place], [place] [phone] CANCELED 01/20/2019 Visit Diagnosis Plan: Chronic obstructive pulmonary di sease, unspecified Discussion: Stable on oxygen Given Symbicort samples Follow Up: 1 months ICD-9 : 496 ICD-10 : J44.9 01/14/2019 Appointment: Lita Barakat WPtel: [address] [place], [place] [phone] Hospital Follow Up 01/14/2019 Visit Diagnosis Plan: [...] : J96.11 12/25/2018 Appointment: Lita Barakat WPtel: 2306 [facility]6676[facility] Hospital Follow Up 12/25/2018 Appointment: Lita Barakat WPtel: 230 [facility]66[facility] CANCELED 12/23/2018 Appointment: Ines Banerjee [facility]6676[facility] CANCELED 12/20/2018 Visit Diagnosis Plan: [...] ICD-10 : I10 12/09/2018 Appointment: Ines Banerjee [facility] LAB 12/09/2018 Patient Education: cefdinir- [employer] C[employer] [id number] https://www.[employer]/samplemd/resources/getResource/61/a0314l3h-56sq-1806-23 Completed 12/09/2018 Visit Diagnosis Plan: Candidal stomatitis Discussion: Diflucan for 5 days Hold atorvastatin while taking ICD-9 : 112.0 ICD-10 : B37.0 12/05/2018 Appointment: Lita Barakat WPtel: [address] [place], [place] [address] ACUTE ILLNESS 12/05/2018 Patient Education: fluconazole- [employer] Coupon [id number] https://www.[employer]/sampleGlobal Active/resources/getResource/61/7m037n24-9ob3-89d8-58 Completed 12/05/2018 Appointment: Lita Barakat WPtel: [address] [place], [place] [address] NO SHOW 11/11/2018 Visit Plan: Saline nasal [...] : J01.91 10/23/2018 Appointment: Lita Barakat WPtel: [address] [place], [place] [address] ACUTE ILLNESS 10/23/2018 Patient Education: prednisone- [employer] Coupon [id number] https://www.[employer]/Outsell/resources/getResource/61/ux7gk037-nihw-7220-98 Completed 10/23/2018 Care Plan: A1C HPLC LOINC : 20893-3 Pending 09/10/2018 Care Plan: COMPREHEN METABOLIC PANEL [place] NC : 08138-6 Pending 09/10/2018 Care Plan: CBC Pending 09/10/2018 [...] : G25.81 08/21/2018 Appointment: Lita Barakat WPtel: [address] [place] [address] ACUTE ILLNESS 08/21/2018 Care Plan: Referral Order SNOMED-CT : 30 [id number] Pending 08/21/2018 Visit Diagnosis Plan: Chronic obstructiv [...] : G25.81 08/07/2018 Appointment: Lita Barakat WPtel: [address] [place] [address] LM FOLLOW UP 08/07/2018 Appointment: Lita Barakat WPtel: [address] [place] [address] 07/18/18 1210---see note in chart (km) CANCELED 07/18/2018 Visit Diagnosis Plan: Chronic obstructiv e pulmonary disease with acute lower respiratory infection Discussion: Solumedrol 125mg IM Change t o trelagy 1 inhalation daily Use SVNs with albuterol q4hrs To ER this weekend if worsens Monitor weight/swelling ICD-9 : 496 ICD-10 : J44.0 05/23/2018 Appointment: Lita Barakat WPtel: [address] [place] [address] ACUTE ILLNESS 05/23/2018 Patient Education: Patient Medication Summary Completed 05/23/2018 Visit Diagnosis Plan: Candidal stomatitis Discussion: Diflucan for 7 more days--hold atrovastatin while taking ICD-9 : 112.0 ICD-10 : B37.0 05/02/2018 Appointment: Lita Barakat WPtel: [address] [id number] FOLLOW UP 05/02/2018 Patient Education: Patient Medication [...] ICD-10 : J44.0 04/29/2018 Appointment: Autumn Oneil [address] [place], [place] [address] ACUTE ILLNESS 04/29/2018 Patient Education: Patient Medication [...] : J44.0 04/22/2018 Appointment: Lita Barakat WPtel: [address] [place] [address] Hospital Follow Up 04/22/2018 Patient Education: Patient Medication Summary Completed 04/22/2018 Appointment: Lita Barakat WPtel: [address] [place], [place] [address] 04/09/18 1640---see message in chart from today [...] : M17.11 01/28/2018 Appointment: Lita Barakat WPtel: [address] [place], [place] [address] ACUTE ILLNESS 01/28/2018 Patient Education: Patient Medication Summary Completed 01/28/2018 Care Plan: Referral Order SNOMED-CT : 30 2558586 Pending 01/28/2018 Care Plan: Referral Order SNOMED-CT : 30 4130562 Pending 01/28/2018 Visit Diagnosis Plan: Functional dyspepsia Discussion: Protonix Call in 1 week on how doing ICD-9 : 536.8 ICD-10 : K30 01/23/2018 Visit Diagnosis Plan: Pain in right knee Discussion: T opical voltaren gel QID ICD-9 : 719.46 ICD-10 : M25.561 01/23/2018 Appointment: Lita Barakat WPtel: [address] [place] [address] ACUTE ILLNESS 01/23/2018 Patient Education: Patient Medication [...] N39.0 01/02/2018 Appointment: Lita Barakat WPtel: [address] ACUTE ILLNESS 01/02/2018 Patient Education: Patient [...] ICD-10 : J44.1 12/28/2017 Appointment: Autumn Oneil [address] [place] [address] Consult 12/28/2017 Patient Education: Patient Medication Summary [...] Appointment: Autumn Oneil 504 [facility] ACUTE ILLNESS 12/21/2017 Patient Education: Patient Medication Summary Completed 12/21/2017 Care Plan: X-RAY EXAM OF KNEE 1 OR 2 right LEILA NC : 96905-5 Pending 12/18/2017 Visit Diagnosis Plan: Pain in [...] : J44.0 12/17/2017 [facility]ment[facility] [facility] 12/17/2017 Patient Education: Patient Medication Summary Completed 12/17/2017 Visit Diagnosis Plan: Unilateral primary osteoarthriti s, right knee Discussion: Right knee injection as above Warned of elevated BS after injection ICD-9 : 715.96 ICD-10 : M17.11 12/11/2017 Appointment: Lita Barakat WPtel: [facility] [facility] 12/11/2017 Patient Education: Patient Medication Summary Completed 12/11/2017 Visit Diagnosis Plan: Actinic keratosis Discussion: Cr yotherapy as above If persists then will need excision by Dr. Swanson ICD-9 : 702.0 ICD-10 : L57.0 11/07/2017 Appointment: Lita Barakat WPtel: [address] [place] [address] ACUTE ILLNESS 11/07/2017 Patient Education: Patient Medication [...] : S61.411S 10/17/2017 Appointment: Lita Barakat WPtel: [address] [place] [address] ER Follow UP 10/17/2017 Patient Education: Patient Medication Summary Completed 10/17/2017 Appointment: Lita Barakat WPtel: [address] [place] [address] [place] Consult 08/15/2017 Visit Diagnosis Plan: Chronic [...] ICD-10 : J44.0 08/02/2017 Appointment: Autumn Oneil [address] [place] [address] ACUTE ILLNESS 08/02/2017 Patient Education: Patient Medication Summary Completed 08/02/2017 Patient Education: Patient Medication Summary Completed 07/31/2017 Care Plan: CHEST X-RAY 2VW FRONTAL&LATL LOINC : 46555-3 Pending 07/31/2017 Appointment: Lita Barakat WPtel: [address] [place], [place] [phone] [place] INJECTION 07/24/2017 Patient Education: Patient Medication [...] ICD-10 : J44.1 07/02/2017 Appointment: Autumn Oneil [address] [place] [address] ACUTE ILLNESS 07/02/2017 Patient Education: Patient Medication Summary Completed 07/02/2017 Care Plan: CHEST X-RAY 2VW FRONTAL&LATL LOINC : 05195-5 Pending 07/02/2017 Care Plan: MRI LUMBAR SPINE W/O DYE LOIN C : 66608-1 Pending 05/30/2017 Visit Plan: MRI at [facility] [place] codone 5.325 1 po q 4-6 hours prn pain #40 NR and Cyclobenzaprine (ERx) Continue warm packs for pain RTC if no improvement 05/29/2017 Appointment: Ruchi Buchanan WPtel: [address] [place], [place] [phone] ACUTE ILLNESS 05/29/2017 Patient Education: Patient Medication Summary Completed 05/29/2017 Appointment: Lita Barakat WPtel: [address] [place], [place] [phone] [place] CANCELED 05/24/2017 Patient Education: Patient Medication Summary Completed 05/22/2017 Care Plan: X-RAY EXAM L-S SPINE 2/3 VWS LOINC : 74261-1 Pending 05/22/2017 Appointment: Lita Barakat WPtel: [address] [place], [place] [phone] [place] LAB 04/17/2017 Patient Education: Patient Medication Summary Completed 04/17/2017 Referral: Demetrius Rodriguez WPtel: [address] Referral Initiated 04/05/2017 Appointment: Lita Barakat WPtel: [address] [place] [address] 03/30/17 0930---spoke with patient about ointments (km Consult 03/30/2017 Appointment: Lita Barakat WPtel: [address] [place] [address] 03/29/17 1320---spoke with patient, requip refilled wasn't received at pharmacy so verbally called (km) Consult 03/29/2017 Patient Education: Patient Medication Summary Completed 03/01/2017 Care Plan: CHEST X-RAY 2VW FRONTAL&LATL LOINC : 79978-0 Pending 03/01/2017 Visit Diagnosis Plan: Bursitis of left shoulder Discus yesi: Injection as above ICD-9 : 726.10 ICD-10 : M75.52 02/01/2017 Appointment: Lita Barakat WPtel: [address] [place] [address] 01/31 confirmed ~sl WORK IN 02/01/2017 Patient Education: Patient Medication Summary Completed 02/01/2017 Care Plan: X-RAY EXAM OF SHOULDER LOINC : 98049-8 Pending 01/30/2017 Visit Plan: May take OTC Tylenol/Ibuprof en as directed XRay at [facility] of left shoulder Tramadol 50mg 1 po q 6 hours prn pain called to [facility]. Sedation warning given (no driving, etc) RTC if no improvement 01/29/2017 Appointment: Ruchi Buchanan WPtel: [address] [place] [address] ACUTE ILLNESS 01/29/2017 Appointment: Ruchi Buchanan WPtel: [address] [place] [address] ACUTE ILLNESS 01/29/2017 Patient Education: Patient Medication Summary Completed 01/29/2017 Appointment: Lita Barakat WPtel: [address] [place], [place] [phone] [place] Consult 01/10/2017 Appointment: Lita Barakat WPtel: [address] [place], [place] [phone] 12/27/2016 Patient Education: Patient Medication Summary Completed [...] : R53.83 12/21/2016 Appointment: Lita Barakat WPtel: [address] [place], [place] [address] ACUTE ILLNESS 12/21/2016 Patient Education: Patient Medication Summary Completed 12/21/2016 Appointment: Lita Barakattel: [address] [place], [place] [phone] [place] CANCELED 12/18/2016 Visit Diagnosis Plan: Restless [...] : D64.9 12/14/2016 Appointment: Lita Barakat WPtel: [address] [place], [place] [phone] 12/13 confirmed ~sl WORK IN 12/14/2016 Appointment: Lita Barakat WPtel: [address] [place], [place] [phone] CANCELED 12/14/2016 Patient Education: Patient Medication Summary Completed 12/14/2016 Appointment: Lita Barakat WPtel: [address] [place], [place] [phone] LAB 12/12/2016 Patient Education: Patient Medication Summary Completed 12/12/2016 Appointment: Lita Barakat WPtel: [address] [place], [place] [phone] in ER this weekend--called for reports Consult 12/11/2016 Appointment: Lita Barakat WPtel: [address] [place], [place] [phone] [place] CANCELED 12/04/2016 Visit Diagnosis Plan: Pneumonia, [...] : G25.81 11/14/2016 Appointment: [facility] [facility] 11/14/2016 Patient Education: Patient Medication Summary Completed 11/14/2016 Appointment: Lita Barakat WPtel: [address] [place], [place] [phone] [place] RESCHEDULED 11/02/2016 Visit Diagnosis Plan: Candidal stomatitis Discussion: Diflucan and Nystatin Hold atorvastatin while taking diflucan ICD-9 : 112.0 ICD-10 : B37.0 10/31/2016 Appointment: Lita Barakat WPtel: [address] [place] [address] ACUTE ILLNESS 10/31/2016 Patient Education: Patient Medication Summary Completed 10/31/2016 Appointment: Lita Barakat WPtel: [address] [place] [address] [place] Consult 10/23/2016 Appointment: Lita Barakat WPtel: [address] [place], [place] [phone] [place] CANCELED 10/18/2016 Visit Plan: Rx as above Wear O2 at all t imes as instructed by Dr Chacon Continue breathing treatments Supportive care otherwise reviewed Follow up ingrid if not improving 10/03/2016 Appointment: Lita Barakat WPtel: [address] [place] [address] [place] CANCELED 10/03/2016 Appointment: Magda Toth [address] [place] [address] ACUTE ILLNESS 10/03/2016 Patient Education: Patient Medication Summary Completed 10/03/2016 Visit Plan: Titrate requip to 1.5mg x 1 week Call if not helpful and will increase to 2mg qHS NO MORE nyquil at bedtime - discussed potential effects of decongestants on heart, oversedating himself, etc Will increase requip, then amitriptyline if needed to desired effect 09/04/2016 Appointment: Magda Toth [address] [place] [address] ACUTE ILLNESS 09/04/2016 Patient Education: Patient Medication Summary Completed 09/04/2016 Visit Plan: Stop requip and try elavil C ryotherapy as above See ENT for removal of right ear lesion 08/22/2016 Appointment: Lita Barakat WPtel: [address] [place], [place] [address] ACUTE ILLNESS 08/22/2016 Patient Education: Patient Medication Summary Completed 08/22/2016 Visit Plan: Trial of requip 1mg q HS Res tart zoloft Recheck 1month 08/10/2016 Appointment: Lita Barakat WPtel: [address] [place] [address] ACUTE ILLNESS 08/10/2016 Patient Education: Patient Medication Summary Completed 08/10/2016 Visit Plan: Stop HCTZ Flagyl for diarrhe a Hydrate Discussed meds for restless legs Zofran prn Nausea 07/06/2016 Appointment: Lita Barakat WPtel: [address] [place] [address] 07/05 confirmed~ Hospital Follow Up 07/06/2016 Patient Education: Patient Medication Summary Completed 07/06/2016 Visit Plan: Reviewed with Dr Gasper mantillaing his recent history, instructed him to go straight to the ER called to notify her so she can meet him there 06/22/2016 Appointment: Magda Toth [address] [place] [address] ACUTE ILLNESS 06/22/2016 Patient Education: Patient Medication Summary Completed 06/22/2016 Visit Plan: Continue current meds Prevna r 13 and High Dose Flu given 06/13/2016 Appointment: Lita Barakat WPtel: [address] [place] [address] 06/13 confirmed~ WORK IN 06/13/2016 Patient Education: Patient Medication Summary Completed 06/13/2016 Appointment: Lita Barakat WPtel: [address] [place] [address] just went over current medications CANCELED 06/08/2016 Visit Plan: Reviewed POC with Dr Barakat Stat cbc, cmp, d dimer, troponin, bnp, ekg, cxr If any worsening of symptoms while awaiting results, patient instructed to go to ER or call 911 06/01/2016 Appointment: Magda [facility]oth [facility]305 [facility] [facility] 06/01/2016 Patient Education: Patient Medication Summary Completed 06/01/2016 Referral: José Miguel Swanson WPtel: [address] 04/[address] swanson's office, patient [...] eval and treatment 04/26/2016 Appointment: Magda Toth Nacho2 [facility]6676[facility] ACUTE ILLNESS 04/26/2016 Patient Education: Patient Medication Summary Completed 04/26/2016 Care Plan: Referral Order SNOMED-CT : 30 [id number] Pending 04/26/2016 Visit Plan: Left ear flushed after conse nt with warm water with peroxide with ear syringe Patient tolerated well Ear exam is wnl following flushing Follow up PRN 04/05/2016 Appointment: Magda Toth Nacho5 [facility]6676[facility] ACUTE ILLNESS 04/05/2016 Patient Education: Patient Medication Summary Completed 04/05/2016 Visit Plan: Increase Levemir to 25u sc d aily Increase sertraline to 2 full tablets daily--200mg Debrox or cerumenex to bilateral ears q HS for 3 nights then flush or fwup for fushing Check lab in 2mos then fwup 04/03/2016 Appointment: Lita Barakat WPtel: 2305 [facility] 03/31 7/8 lm ~sl FOLLOW UP 04/03/2016 Patient Education: Patient Medication Summary Completed 04/03/2016 Visit Plan: Patient informed of correct dosage of levemir and how to administer. Patient verbalizes understanding and will call if any questions/concerns. 10 Units of Levemir given in office SC to right lower abdom en. Patient tolerated well. Site without redness/irritation. 03/13/2016 Appointment: Lita Barakat WPtel: [address] [place], [place] [phone] SPECIAL 03/13/2016 Patient Education: Patient Medication Summary Completed 03/13/2016 Appointment: Lita Barakat WPtel: [address] [place], [place] [phone] LAB 03/06/2016 Patient Education: Patient Medication Summary Completed 03/06/2016 Visit Plan: Patient saw Dr. Chacon this week and was given prednisone taper for COPD Continue current meds Accuchecks daily Patient will return on Sunday morning for fasting lab incuding CBC, CMP, TSH, free T4, HbA1C, Lipids, Testosterone, PSA 03/02/2016 Appointment: Lita Barakat WPtel: [address] [place], [place] [phone] 03/01 confirmed ~sl FOLLOW UP 03/02/2016 Patient [...] how doing 02/17/2016 Appointment: Lita Barakat WPtel: [address] [place], [place] [phone] WORK IN 02/17/2016 Patient Education: Patient Medication Summary Completed 02/17/2016 Visit Plan: Xrays to further evaluate Alvarez spect heel spur(s) Will call with results Has had injections in the past that were helpful Dr Barakat can do them or can refer to podiatry if warranted 02/14/2016 Appointment: Magda Toth [address] [place] [address] ACUTE ILLNESS 02/14/2016 Patient Education: Patient Medication Summary Completed 02/14/2016 Visit Plan: Increase Zoloft to 150mg cooper ly 01/31/2016 Appointment: Lita Barakat WPtel: [address] [place], [place] [phone] [place] 01/26 confirmed `sl FOLLOW UP 01/31/2016 Patient Education: Patient Medication Summary Completed 01/31/2016 Visit Plan: Decrease citalopram to 20mg q AM for 1 week then stop Start zoloft 50mg q HS for 1 week then increase to 100mg q HS 12/30/2015 Appointment: Lita Barakat WPtel: [address] [place], [place] [phone] 12/28 confirmed~sl ACUTE ILLNESS 12/30/2015 Patient Education: Patient Medication Summary Completed 12/30/2015 Visit Plan: Check Neck US 12/16/2015 Appointment: Ltia Barakat WPtel: [address] [place], [place] [phone] 12/14 lm ~sl 12/15 confirmed-sp FOLLOW UP 12/16/2015 Patient Education: Patient Medication Summary Completed 12/16/2015 Care Plan: US EXAM OF HEAD AND NECK LOIN C : 78315-7 Ordered 12/16/2015 Appointment: Stephanie Rios WPtel: [address] [place], [place] [phone] [place] 12/09 confirmed-sp 12/12 lm ~sl Patient [...] PO TID 12/06/2015 Appointment: Stephanie Rios WPtel: [address] [place], [place] [address] ACUTE ILLNESS 12/06/2015 Patient Education: Patient Medication Summary Completed 12/06/2015 Referral: Lisbeth Darby WPtel: [facility] [address] [facility] 11/18/15 called luther at [facility] office and confirmed time and date of appointment with patient~sl Initiated 11/18/2015 Visit Plan: Referral to Dermatology for removal of facial skin lesions Cefdinir PO bid Topical Mupirocin to skin lesions bid 11/15/2015 Appointment: Stephanie Rios WPtel: [address] [place], [place] [phone] ACUTE ILLNESS 11/15/2015 Patient Education: Patient Medication Summary Completed 11/15/2015 Visit Plan: Continue current meds Accuch ecks daily Fwup with ophthamology as scheduled Will check lab in 3mos then fwup due to recent meds that will affect blood sugar 10/05/2015 Appointment: Lita Barakat WPtel: [address] [place], [place] [phone] 10/04/15 appt confirmed cn Annual Well Visit 08/2016 Patient Education: Patient Medication Summary Completed 10/05/2015 Visit Plan: Alexis -1 sample box given Return visit in 6 weeks for fasting labs Notify for worsening symptoms such as Increased redness, swelling, pain or drainage of Rt. knee 07/22/2015 Appointment: Stephanie Rios WPtel: [address] [place], [place] [phone] 07/21 vm left cn FOLLOW UP 07/22/2015 Patient Education: Patient Medication Summary Completed 07/22/2015 Visit Plan: Continue to change dressing twice daily and apply Mupirocin Complete Doxycycline as directed. Follow-up for worsening symptoms, such as increased swelling, redness or pain. 07/01/2015 Appointment: Stephanie Rios WPtel: [address] [place], [place] [phone] FOLLOW UP 07/01/2015 Patient Education: Patient Medication Summary Completed 07/01/2015 Visit Plan: Pressure dressing applied to draining wound left knee. Instructed to change dressing twice daily and continue Mupirocin topical Doxycycline PO bid x 10 days Wound culture obtained. Wound tissue sent to pathology Follow-up in 3 days 06/28/2015 Appointment: Stephanie Rios WPtel: [address] [place], [place] [phone] ACUTE ILLNESS 06/28/2015 Patient Education: Patient Medication Summary Completed 06/28/2015 Visit Plan: Complete antibiotics Follow- up for increased tenderness, swelling or drainage. 06/09/2015 Appointment: Stephanie Rios WPtel: [address] [place], [place] [phone] 06/08/15 lm FOLLOW UP 06/09/2015 Patient Education: Patient Medication Summary Completed 06/09/2015 Visit Plan: Apply pressure dressing toda y Continue antibiotics and topical Mupirocin Follow-up in 2 days Bursa drained from open area using pressure--serosanguinous drainage 06/07/2015 Appointment: Stephanie Rios WPtel: [address] [place], [place] [phone] 06/04/15 confirmed with patient FOLLOW UP 0 06/07/2015 Patient Education: Patient Medication Summary Completed 06/07/2015 Visit Plan: Wound culture Lt. knee Apply mupirocin to open wound bid Clindamycin 600 mg PO bid x 10 days Follow-up on Sunday06/03/2015 Appointment: Stephanie Rios WPtel: [address] [place], [place] [phone] ACUTE ILLNESS 06/03/2015 Patient Education: Patient Medication Summary Completed 06/03/2015 Visit Plan: Accuchecks daily Check CMP, HbA1C today Patient is noncompliant with meds and diet but patient says he is doing everything he is supposed to do Wants to try performomist instead of albuterol in SVN 06/01/2015 Appointment: Lita Barakat WPtel: [address] [place], [place] [address] 05/28 appt confirmed cn FOLLOW UP 06/01/20 15 Patient Education: Patient Medication Summary Completed 06/01/2015 Visit Plan: Change Breo Ellipta to Advai r 500/50 1 p BID this next month Continue turdoza Use albuterol prn Check CMP, HbA1C today Accuchecks daily Cryotherapy as above 02/25/2015 Appointment: Lita Barakat WPtel: [facility]9 [facility] 02/24 appt confirmed and explained needed payment he said ok FOLLOW UP 02/25/2015 Patient Education: Patient Medication Summary Completed 02/25/2015 Referral: Lopez Chacon [facility] [address] Will put patient on cancellation list Initiated 12/08/2014 Appointment: Lita Barakat WPtel: [address] [place] [address] Follow Up 10/29/2014 Visit Plan: Finish prednisone Continue S VNs with albuterol QID See pulmonology and start Pulmonary rehab Once again discussed taking it easy this winter--that he is high risk for exacerbation 10/27/2014 Appointment: Lita Barakat WPtel: [address] [place] [address] FOLLOW UP 10/27/2014 Patient Education: Patient Medication Summary Completed 10/27/2014 Appointment: Lita Barakat WPtel: [address] [place] [address] FOLLOW UP 10/26/2014 Appointment: Stephanie Rios WPtel: [address] [place] [address] WORK IN 10/21/2014 Patient Education: Patient Medication Summary Completed 10/21/2014 Patient Education: Patient Medication Summary Completed 10/19/2014 Visit Plan: Continue oxygen and SVNS wit h duoneb Increase farxiga to 10mg daily Diflucan 100mg daily for 1week 10/06/2014 Appointment: Lita Barakat WPtel: [address] [place] [phone] [facility] [place] to 2:45pm FOLLOW UP 2014 Patient Education: Patient Medication Summary Completed 10/06/2014 Visit Plan: Finish omnicef Continue Breo BID and Turdoza Use SVNS with duoneb at least TID for next 2weeks then go to prn 09/21/2014 Appointment: Lita Barakat WPtel: [address] [place], [place] [phone] [place] [address] Follow Up 09/21/2014 Patient Education: Patient Medication Summary Completed 09/21/2014 Patient Education: [facility] [employer] - Ventolin HFA - 18+ - Dynamic Portal ID Completed 09/21/2014 Appointment: Stephanie Rios WPtel: [address] [place], [place] [phone] Scheduled by 09/07 patient rescheduled to 09/08 with Stephanie. Hospital Follow Up 09/08/2014 Patient Education: Patient Medication Summary Completed 09/08/2014 Appointment: Stephanie Rios WPtel: [address] [place], [place] [id number] FOLLOW UP 09/02/2014 Patient Education: Patient Medication Summary Completed 09/02/2014 Patient Education: [employer] - Antibi otics, Analgesics 18+, Oral Contraceptives F 18+ Completed 09/02/2014 Appointment: Lita Barakat WPtel: [address] [place], [place] [phone] UA 08/27/2014 Patient Education: [...] prn sleep 08/10/2014 Appointment: Lita Barakat WPtel: [address] [place], [place] [phone] Annual Well Visit 08/10/2014 Patient Education: Patient Medication Summary Completed 08/10/2014 Appointment: Lita Barakat WPtel: [address] [place], [place] [phone] LAB 08/05/2014 Patient Education: Patient Medication Summary Completed 08/05/2014 Visit Plan: ECHO results reviewed Contin ue Breo and Turdoza Pt starts PT this afternoon for back--has had one epidural with no help in pain 05/05/2014 Appointment: Lita Barakat WPtel: [address] [place] [address] FOLLOW UP 05/05/2014 Patient Education: Patient Medication Summary Completed 05/05/2014 Visit Plan: Continue Breo and Turdoza Camargo s heart tests scheduled next week Will see surgeon for removal of skin cancer to neck after done with cardiac workup 03/24/2014 Appointment: Lita Barakat WPtel: [address] [place] [address] FOLLOW UP 03/24/2014 Patient Education: Patient Medication Summary Completed 03/24/2014 Visit Plan: Proceed with cardiology eval uation as patient is has numerous risk factors for CAD Change Symbicort to Breo 1p BID and add Turdorza 1p BID Recheck in weeks Check 2-D ECHO and lexiscan 03/10/2014 Appointment: Lita Barakat WPtel: [address] [place] [address] FOLLOW UP 03/10/2014 Patient Education: Patient Medication Summary Completed 03/10/2014 Visit Plan: Shoulder injection as above Back brace to use when doing any lifting for stability 12/16/2013 Appointment: Lita Barakat WPtel: [address] [place] [address] ACUTE ILLNESS 12/16/2013 Patient Education: Patient Medication Summary Completed 12/16/2013 Visit Plan: Continue symbicort and Turdo za Salt water gargles Omnicef 300mg 2 po daily for 1wk Phenergan with codeine 10/09/2013 Appointment: Lita Barakat WPtel: [address] [place] [address] WORK IN 10/09/2013 Patient Education: Patient Medication Summary Completed 10/09/2013 Appointment: Ruchi Buchanan WPtel: [address] [place], [place] [phone] ACUTE ILLNESS 09/18/2013 Patient Education: Patient Medication Summary Completed 09/18/2013 Visit Plan: Check on repeat CXR Finish a bx Start Tradjenta to replace metformin 08/13/2013 Appointment: Lita Barakat WPtel: [address] [place], [place] [phone] 08/12 [facility] Follow Up 08/13/2013 Patient Education: Patient Medication Summary Completed 08/13/2013 Visit Plan: Admit to hospital 08/06/2013 Appointment: Stephanie Rios WPtel: [address] [place] [address] ACUTE ILLNESS 08/06/2013 Patient Education: Patient Medication Summary Completed 08/06/2013 Visit Plan: Continue current meds Contin ue accuchecks daily Proceed with stress test due to high risk for CAD 07/16/2013 Appointment: Lita Barakat WPtel: [address] [place], [place] [phone] FOLLOW UP 07/16/2013 Patient Education: Patient Medication Summary Completed 07/16/2013 Appointment: Lita Barakat WPtel: [address] [place], [place] [phone] LAB 06/25/2013 Patient Education: Patient Medication Summary Completed 06/25/2013 Visit Plan: prednisone and azithromycin. Doing CBC and mycoplasma blood draw. Will continue inhaler and albuterol breathing treatments. 04/09/2013 Appointment: Kimberly Villalba WPtel: [address] [place], [place] [phone] ACUTE ILLNESS 04/09/2013 Patient Education: Patient Medication Summary Completed 04/09/2013 Appointment: Lita Barakat WPtel: [address] [place], [place] [id number] ACUTE ILLNESS 02/11/2013 Patient Education: Patient Medication Summary Completed 02/11/2013 Appointment: Ruchi Buchanan WPtel: [address] [place], [place] [phone] ACUTE ILLNESS 01/31/2013 Patient Education: Patient Medication Summary Completed 01/31/2013 Visit Plan: Cefdinir and medrol dose pac k. Codeine/guiaf cough syrup. Has colonoscopy on Sunday. Pt. is to notify if fever occurs or symptoms worsen. Hydration and rest. 01/20/2013 Appointment: Kimberly Villalba WPtel: [address] [place], [place] [phone] ACUTE ILLNESS 01/20/2013 Patient Education: Patient Medication Summary Completed 01/20/2013 Visit Plan: Scopalamine patch and vestib ular exercises 12/19/2012 Appointment: Lita aBrakat WPtel: [address] [place] [address] ACUTE ILLNESS 12/19/2012 Patient Education: Patient Medication Summary Completed 12/19/2012 Visit Plan: Dr. Swanson consult if no impr ovement in hearing. Pt. reports he will notify if no better in one week. Willam consult for skin lesion. 10/21/2012 Appointment: Kimberly Villalba WPtel: [address] [place] [address] ACUTE ILLNESS 10/21/2012 Patient Education: Patient Medication Summary Completed 10/21/2012 Appointment: Lita Barakat WPtel: [address] [place] [address] LAB 09/19/2012 Patient Education: Patient Medication Summary Completed 09/19/2012 Visit Plan: Check fasting lab in AM--CMP , Lipids, HbA1C 09/18/2012 Appointment: Lita Barakat WPtel: [address] [place], [place] [phone] FOLLOW UP 09/18/2012 Patient Education: Patient Medication Summary Completed 09/18/2012 Appointment: Lita Barakat WPtel: [address] [place] [address] appt time scheduled sooner FOLLOW UP 09/05 Visit Plan: Doxycycline and Prednisone I ncrease SVN to QID Add back Symbicort 160/4.5 2 p BID 08/28/2012 Appointment: Lita Barakat WPtel: [address] [place], [place] [phone] FOLLOW UP 08/28/2012 Patient Education: Patient Medication Summary Completed 08/28/2012 Appointment: Lita Barakat WPtel: [address] [place], [place] [phone] Annual Well Visit 07/10/2012 Patient Education: Patient Medication Summary Completed 07/10/2012 Visit Plan: Finish Z-pack Add Nasonex Ad d Meclizine Vestibular exercises Continue current meds and accuchecks Check lab and fwup in 4mos 05/09/2012 Appointment: Lita Barakat WPtel: [address] [place], [place] [phone] [place] number no longer works FOLLOW UP 2 Patient Education: Patient Medication Summary Completed 05/09/2012 Appointment: Lita Barakat WPtel: [address] [place], [place] [phone] [place] LAB 05/06/2012 Patient Education: Patient Medication Summary Completed 05/06/2012 Appointment: Lita Barakat WPtel: [address] [place], [place] [phone] [place] LAB 05/02/2012 Appointment: Lita Barakat WPtel: [address] [place], [place] [phone] [place] INJECTION 02/05/2012 Patient Education: Patient Medication Summary Completed 02/05/2012 Visit Plan: cefdinir. Will focus on rest and fluids. Pt. reports he is using breathing treatments as needed. Pt. will monitor for worsening symptoms or fever. 10/02/2011 Appointment: Kimberly Villalba WPtel: [address] [place], [place] [phone] ACUTE ILLNESS 10/02/2011 Patient Education: Patient Medication Summary Completed 10/02/2011 Appointment: Lita Barakat WPtel: [address] [place], [place] [phone] [place] INJECTION 08/10/2011 Patient Education: Patient Medication Summary Completed 08/10/2011 Visit Plan: Continue current meds Restar t Advair Restart exercise Flu shot given 08/07/2011 Appointment: Lita Barakat WPtel: [address] [place], [place] [phone] FOLLOW UP 08/07/2011 Patient Education: Patient Medication Summary Completed 08/07/2011 Appointment: Lita Barakat WPtel: [address] [place], [place] [phone] [place] LAB 07/26/2011 Patient Education: Patient Medication Summary Completed 07/26/2011 Visit Plan: ALEKSANDER Carmen Continue Metformin but change to BID Add Lantus 25u sc q PM BS readings in 1wk 04/03/2011 Appointment: Lita Barakat WPtel: [address] [place], [place] [phone] ACUTE ILLNESS 04/03/2011 Patient Education: Patient Medication Summary Completed 04/03/2011 Appointment: Lita Barakat WPtel: [address] [place], [place] [phone] [place] INJECTION 01/19/2011 Patient Education: Patient Medication Summary Completed 01/19/2011 Appointment: Lita Barakattel: [address] [place] [address] ACUTE ILLNESS 01/18/2011 Patient Education: Patient Medication Summary Completed 01/18/2011 Appointment: Lita Barakat WPtel: [address] [place], [place] [phone] [place] INJECTION 12/21/2010 Patient Education: Patient Medication Summary Completed 12/21/2010 Appointment: Lita Barakat WPtel: [address] [place], [place] [phone] [place] FOLLOW UP 12/19/2010 Patient Education: Patient Medication Summary Completed 12/19/2010 Appointment: Lita Barakat WPtel: [address] [place], [place] [phone] [place] LAB 12/07/2010 Patient Education: Patient Medication Summary Completed 12/07/2010 Appointment: Kimberly Villalba WPtel: [address] [place], [place] [phone] ACUTE ILLNESS 04/05/2010 Patient Education: Patient Medication Summary Completed 04/05/2010 Appointment: Lita Barakat WPtel: [address] [place], [place] [phone] [place] WORK IN 03/14/2010 Patient Education: Patient Medication Summary Completed 03/14/2010 Appointment: Lita Barakat WPtel: [address] [place], [place] [phone] [place] LAB 03/02/2010 Visit Plan: HbA1C in 3mos. Continue Accu checks BID alternating times. Switch lexapro to celexa 01/13/2010 Appointment: Lita Barakat WPtel: [address] [place], [place] [phone] FOLLOW UP 01/13/2010 Patient Education: Patient Medication Summary Completed 01/13/2010 Appointment: Lita Barakat WPtel: [address] [place], [place] [phone] FOLLOW UP 01/11/2010 Visit Plan: Pt. will continue the Avalox and Doxycycline regimen as prescribed the previous day. He has been advised to continue inhalers, breathing treatments and oxygen therapy for at least the weekend. Moderate activity without strenuous exercise. The pt. will seek immediate re-eval if his symptoms worsen. 12/23/2009 Appointment: Kimberly Villalba WPtel: [address] [place], [place] [phone] FOLLOW UP 12/23/2009 Patient Education: Patient Medication [...] tomorrow morning. 12/22/2009 Appointment: Kimberly Villalba WPtel: [address] [place] [address] ACUTE ILLNESS 12/22/2009 Patient Education: Patient Medication Summary Completed 12/22/2009 Appointment: Kimberly Villalba WPtel: [address] [place] [address] FOLLOW UP 12/21/2009 Appointment: Lita Barakat WPtel: [address] [place] [address] [place] INJECTION 12/16/2009 Patient Education: Patient Medication Summary Completed 12/16/2009 Appointment: Kimberly Villalba WPtel: [address] [place] [address] ACUTE ILLNESS 12/13/2009 Patient Education: Patient Medication Summary Completed 12/13/2009 Care Plan: X-RAY EXAM OF SHOULDER lt shoulder (pain ra diates across the shoulder) Hand carried orders to [facility] LOINC : 36728-1 Ordered 12/13/2009 Care Plan: X-RAY EXAM THORAC SPINE 2VWS Hand carried order LOINC : 67638-3 Ordered 12/13/2009 Care Plan: X-RAY EXAM RIBS UNI 2 VIEWS Posterior ribs of lt. side Pt. hand carries order to [facility] LOINC : 25234-3 Ordered 12/13/2009 Referral: José Miguel Swanson WPtel: [address] [address] [place] Referral Appointment Requested Referral: José Miguel Swanson WPtel: [address] [address] [place] Referral Appointment Requested Referral: Chandu Quarles WPtel: [address] Qu[facility] will book appt with him Initiated Referral: Santosh Machado WPtel: [facility] [place] A [id number] [place] Referral Appointment Requested Referral: José Miguel Swanson WPtel: [address] [phone] [place] Referral Initiated Referral: Lopez Chacon [address] [facility] C&D [id number] [place] Referral Initiated Referral: Demetrius Rodriguez WPtel: [address] [address] [place] Referral Appointment Requested Referral: José Miguel Swanson WPtel: [address] [place] Referral Appointment Requested Referral: José Miguel Swanson WPtel: [address] [address] [place] Referral Initiated Instructions Comment . Saline nasal flushes prn. Tylenol/Motr in prn headache. Notify if persists/symptoms worsening. . MRI at [facility] Hydrocodone 5.325 1 po [...]
--- NOTE | 2020-03-28 16:15 | NUR ---
RT CONTACTED FOR BREATHING TX.
--- OUTSIDE RECORDS SUMMARY | 2020-03-28 16:15 | XMS REPORT | CCD ---
Author Author Leandro Barakat D.O. 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/22/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: [...] mg base)/3 mL n ebulization soln RxNorm: 8410256 USE 1 VIAL IN NEBULIZER Q4H (THIS REPLACES ALBUTEROL S OLUTION) 01/08/2020 02/06/2020 Active prednisone 20 mg tablet RxNorm: 698279 1 Tablet(s) Oral two remy es a day 12/25/2019 01/01/2020 Inactive Levemir FlexTouch U-100 Insulin 100 unit/mL (3 mL) sub cutaneous pen RxNorm: 666304 10 Unit(s) Subcutaneous every night at bedtime 12/22/2019 N o Stop Date Active baclofen 10 mg tablet RxNorm: 609971 1 Tablet(s) Oral QPM for p ain/spasm 12/22/2019 01/21/2020 Active ipratropium 0.5 mg-albuterol 3 mg (2.5 mg base)/3 mL n ebulization soln RxNorm: 2648762 USE 1 VIAL IN NEBULIZER Q4H (THIS REPLACES ALBUTEROL S OLUTION) 11/27/2019 12/16/2019 Inactive hydrocodone 10 mg-acetaminophen 325 mg tablet RxNorm: 949891 1 Tablet(s) Oral Q4H as needed for pain 11/13/2019 No Stop Date Active Seroquel 50 mg tablet RxNorm: 892644 1 Tablet(s) Oral QPM as ne eded for sleep 10/07/2019 12/21/2019 Inactive ropinirole 4 mg tablet RxNorm: 649918 3 TABLET(S) BY [facility] DAILY AT BEDTIME FOR RESTLESS LEGS 09/29/2019 12/27/2019 Inactive Generic For:REQU IP 4 MG TABLET 09/29/2019 7:52:42 AM N O T I C E Last quantity doesn't match original quantity ropinirole 4 mg tablet RxNorm: 604595 3 TABLET(S) BY [facility] DAILY AT BEDTIME FOR RESTLESS LEGS 09/26/2019 09/28/2019 Inactive Generic For:REQU IP 4 MG TABLET 09/26/2019 9:08:48 AM N O T I C E Last quantity doesn't match original quantity ipratropium 0.5 mg-albuterol 3 mg (2.5 mg base)/3 mL n ebulization soln RxNorm: 3129533 USE 1 VIAL IN NEBULIZER EVERY FOUR HOURS (THIS REPLACES ALBUTEROL SOLUTION) 09/26/2019 10/15/2019 Inactive Generic For:*DUO NEB 2.5-0.5 MG/3 ML SOLN 09/26/2019 9:08:53 AM hydrocodone 10 mg-acetaminophen 325 mg tablet RxNorm: 512371 1 Tablet(s) Oral Q4H as needed for pain 09/09/2019 09/09/2019 Inactive hydrocodone 10 mg-acetaminophen 325 mg tablet RxNorm: 316889 1 Tablet(s) Oral Q4H as needed for pain 09/09/2019 09/08/2019 Inactive ondansetron HCl 4 mg tablet RxNorm: 838483 1 Tablet(s) Oral QPM for nausea 08/12/2019 10/10/2019 Inactive ipratropium 0.5 mg-albuterol 3 mg (2.5 mg base)/3 mL n ebulization soln RxNorm: 8076974 1 Unit Dose INH Q4H 08/12/2019 09/25/2019 Inactive replaces albuterol solution Augmentin 875 mg-125 mg tablet RxNorm: 539991 1 Tablet(s) Oral two times a day 08/07/2019 08/17/2019 Inactive prednisone 20 mg tablet RxNorm: 783052 1 Tablet(s) Oral QD 08/05/2008/04/2019 Inactive prednisone 20 mg tablet RxNorm: 186409 1 Tablet(s) Oral QD 08/05/2008/06/2019 Inactive Levaquin 500 mg tablet RxNorm: 502194 1 Tablet(s) Oral QD Replaces azithromycin (z-pack) 07/31/2019 08/05/2019 Inactive Levaquin 500 mg tablet RxNorm: 024246 1 Tablet(s) Oral QD Replaces azithromycin (z-pack) 07/21/2019 07/26/2019 Inactive Levaquin 500 mg tablet RxNorm: 951945 1 Tablet(s) Oral QD Replaces azithromycin (z-pack) 07/21/2019 07/20/2019 Inactive Zithromax Z-Gui 250 mg tablet RxNorm: 901600 Tablet(s) Oral 019 07/22/2019 Inactive Zithromax Z-Gui 250 mg tablet RxNorm: 036231 Tablet(s) Oral 019 07/15/2019 Inactive Symbicort 160 mcg-4.5 mcg/actuation HFA aerosol inhaler RxNo rm: 2269518 2 Puff(s) Inhalation two times a day 07/14/2019 07/14/2019 Inactive Tessalon Perles 100 mg capsule RxNorm: 959524 1 Capsule(s) Oral Q8H as needed 07/14/2019 08/06/2019 Inactive Seroquel 50 mg tablet RxNorm: 973322 1 Tablet(s) Oral QPM as ne eded for sleep 07/01/2019 10/06/2019 Inactive ondansetron HCl 4 mg tablet RxNorm: 720225 1 Tablet(s) Oral QPM for nausea 06/24/2019 07/24/2019 Inactive Seroquel 25 mg tablet RxNorm: 273320 1 Tablet(s) Oral every nig ht at bedtime 06/19/2019 06/18/2019 Inactive Seroquel 25 mg tablet RxNorm: 585389 1 Tablet(s) Oral every nig ht at bedtime 06/19/2019 06/30/2019 Inactive trazodone 150 mg tablet RxNorm: 446480 1/2 Tablet(s) PO QHS as needed for sleep 06/11/2019 06/17/2019 Inactive replaces PA on doxep in trazodone 150 mg tablet RxNorm: 607813 1/2 Tablet(s) PO QHS as needed for sleep 05/12/2019 06/11/2019 Inactive replaces PA on doxep in Vitamin D3 5,000 unit tablet RxNorm: 347957 1 Tablet(s) PO QD 05/09 No Stop Date Active magnesium oxide 400 mg (241.3 mg magnesium) tablet RxNorm: 1 73037 1 Tablet(s) PO QHS 05/09/2019 No Stop Date Active cyanocobalamin (vit B-12) 1,000 mcg/mL injection solution Rx Norm: 321249 1 injection weekly for 4 weeks 1 Milliliter(s) Inj 05/09/2019 12/21/2019 Inactive ferrous sulfate 325 mg (65 mg iron) tablet RxNorm: 710213 1 Tab let(s) PO QD 05/09/2019 12/21/2019 Inactive ropinirole 4 mg tablet RxNorm: 494797 3 TABLET(S) BY [facility] DAILY AT BEDTIME FOR RESTLESS LEGS 03/26/2019 06/23/2019 Inactive Generic For:REQU IP 4 MG TABLET 03/26/2019 11:23:36 AM N O T I C E Last quantity doesn't match original quantity pantoprazole 40 mg tablet,delayed release RxNorm: 558896 Tablet(s) TAKE 1 TABLET BY MOUTH DAILY FOR STOMACH 03/24/2019 06/21/2019 Inactive Gener ic For:PROTONIX 40MG TAB EC 01/03/2019 1:23:44 PM hydroxyzine HCl 10 mg tablet RxNorm: 469168 1 Tablet(s) PO BID as needed 03/24/2019 04/06/2019 Inactive ipratropium-albuterol 0.5 mg-3 mg(2.5 mg base)/3 mL ne bulization soln RxNorm: 6138816 1 Unit Dose INH Q4H 03/21/2019 No Stop Date Active replaces albuterol solution meclizine 12.5 mg tablet RxNorm: 186158 1 Tablet(s) PO BID as neede d 03/21/2019 12/21/2019 Inactive losartan 100 mg tablet RxNorm: 475934 1 Tablet(s) PO QD replace s lisinopril 03/13/2019 09/08/2019 Inactive fluconazole 100 mg tablet RxNorm: 638089 1 Tablet(s) PO QD 03/13/20 19 03/19/2019 Inactive nystatin 100,000 unit/mL oral suspension RxNorm: 724224 5 Unit( s) PO QID 03/13/2019 03/26/2019 Inactive tramadol 50 mg tablet RxNorm: 212842 1 Tablet(s) PO TID as needed for pain TAKE 2 TABS OF EXTRA STRENGTH TYLENOL WITH EACH DOSE 03/10/2019 04/06/2019 Inactive Generic For:*ULTRAM 50 MG TABLET 01/15/2019 4:55:26 PM Sinemet CR 50 mg-200 mg tablet,extended release RxNorm: 8343 41 1 Tablet(s) PO TID 02/26/2019 08/24/2019 Inactive Generic For:*SIN EMET CR 50/200 TABLET SA 07/08/2018 3:09:11 PM trazodone 150 mg tablet RxNorm: 843091 1/2 Tablet(s) PO QHS as needed for sleep 02/13/2019 02/12/2019 Inactive trazodone 150 mg tablet RxNorm: 482939 1/2 Tablet(s) PO QHS as needed for sleep 02/13/2019 02/25/2019 Inactive replaces PA on doxep in doxepin 10 mg capsule RxNorm: 7370380 1-2 Capsule(s) PO QHS prn sleep 02/13/2019 02/13/2019 Inactive Novolog U-100 Insulin aspart 100 unit/mL subcutaneous soluti on RxNorm: 290103 INJECT 10 UNIT(S) SUBCUTANEOUSLY BEFORE MEALS 01/31/2019 05/30/2019 In active 01/31/2019 1:39:10 PM ipratropium-albuterol 0.5 mg-3 mg(2.5 mg base)/3 mL ne bulization soln RxNorm: 3441625 1 Unit Dose INH Q4H 01/17/2019 03/20/2019 Inactive replaces albuterol solution tramadol 50 mg tablet RxNorm: 588204 1 Tablet(s) PO TID as needed for pain TAKE 2 TABS OF EXTRA STRENGTH TYLENOL WITH EACH DOSE 01/15/2019 02/03/2019 Inactive Generic For:*ULTRAM 50 MG TABLET 01/15/2019 4:55:26 PM Sinemet CR 50 mg-200 mg tablet,extended release RxNorm: 8343 41 1 Tablet(s) PO BID 01/03/2019 02/25/2019 Inactive Generic For:*SIN EMET CR 50/200 TABLET SA 07/08/2018 3:09:11 PM losartan 100 mg tablet RxNorm: 672899 1 Tablet(s) PO QD replace s lisinopril 01/03/2019 03/12/2019 Inactive Symbicort 160 mcg-4.5 mcg/actuation HFA aerosol inhaler RxNo rm: 6222569 2 Puff(s) INH BID 01/03/2019 01/02/2019 Inactive pantoprazole 40 mg tablet,delayed release RxNorm: 854912 TAKE 1 TABLET BY MOUTH DAILY FOR STOMACH 01/03/2019 03/23/2019 Inactive Generic For:[place] OTONIX 40MG TAB EC 01/03/2019 1:23:44 PM nystatin 100,000 unit/mL oral suspension RxNorm: 091774 Unit(s) 5 Unit(s) PO QID swish and spit 01/02/2019 11/11/2019 Inactive Incruse Ellipta 62.5 mcg/actuation powder for inhalation RxN orm: 5861843 1 Capsule(s) INH QD 12/25/2018 12/21/2019 Inactive Tessalon Perles 100 mg capsule RxNorm: 621411 1 Capsule(s) PO T ID for cough 12/25/2018 02/25/2019 Inactive Medrol (Gui) 4 mg tablets in a dose pack RxNorm: 619857 Tablet(s) PO Use as directed 12/23/2018 01/02/2019 Inactive Levemir FlexTouch U-100 Insulin 100 unit/mL (3 mL) sub cutaneous pen RxNorm: 062107 20 Unit(s) SQ QD with pen needles 12/13/2018 05/11/2019 Inactiv e prednisone 20 mg tablet RxNorm: 199804 1 Tablet(s) PO QD 12/12/2018 0 12/11/2018 Inactive prednisone 20 mg tablet RxNorm: 687908 1 Tablet(s) PO QD 12/12/2018 0 12/16/2018 Inactive promethazine 6.25 mg-codeine 10 mg/5 mL syrup RxNorm: 471613 5 Milliliter(s) PO QHS as needed for cough 12/09/2018 12/18/2018 Inactive cefdinir 300 mg capsule RxNorm: 509527 1 Capsule(s) PO BID 12/10/1912/18/2018 Inactive fluconazole 100 mg tablet RxNorm: 021225 1 Tablet(s) PO QD 12/06/1912/08/2018 Inactive ropinirole 4 mg tablet RxNorm: 531671 3 Tablet(s) PO QHS for re stless legs 12/04/2018 03/03/2019 Inactive Novolog U-100 Insulin aspart 100 unit/mL subcutaneous soluti on RxNorm: 606235 INJECT 10 UNIT(S) SUBCUTANEOUSLY BEFORE MEALS 12/04/2018 01/30/2019 In active 12/04/2018 10:02:42 AM nystatin 100,000 unit/mL oral suspension RxNorm: 917637 5 Unit(s) PO QID swish and spit 11/25/2018 12/18/2018 Inactive ropinirole 4 mg tablet RxNorm: 607172 3 Tablet(s) PO QHS for re stless legs 11/04/2018 12/03/2018 Inactive prednisone 20 mg tablet RxNorm: 548440 1 Tablet(s) PO BID 10/23/2018 10/29/2018 Inactive ropinirole 4 mg tablet RxNorm: 778619 3 Tablet(s) PO QHS for re stless legs 10/14/2018 11/04/2018 Inactive pantoprazole 40 mg tablet,delayed release RxNorm: 342804 1 Tablet(s) PO QD forstomach 10/10/2018 01/02/2019 Inactive Symbicort 160 mcg-4.5 mcg/actuation HFA aerosol inhaler RxNo rm: 4645094 2 Puff(s) INH BID 10/10/2018 01/03/2019 Inactive Novolog U-100 Insulin aspart 100 unit/mL subcutaneous soluti on RxNorm: 485027 INJECT 10 UNIT(S) SUBCUTANEOUSLY BEFORE MEALS 10/10/2018 12/03/2018 In active 10/10/2018 11:30:01 AM Sinemet CR 50 mg-200 mg tablet,extended release RxNorm: 8343 41 1 Tablet(s) PO BID 09/26/2018 01/03/2019 Inactive Generic For:*SIN EMET CR 50/200 TABLET SA 07/08/2018 3:09:11 PM ropinirole 4 mg tablet RxNorm: 230807 2 Tablet(s) PO QHS for re stless legs 09/18/2018 10/13/2018 Inactive metformin ER 1,000 mg tablet,extended release 24hr RxNorm: 1 109722 1 Tablet(s) PO BID 09/09/2018 12/18/2018 Inactive ropinirole 4 mg tablet RxNorm: 408192 2 Tablet(s) PO QHS for re stless legs 08/21/2018 09/17/2018 Inactive doxycycline hyclate 100 mg capsule RxNorm: 0145306 1 Capsule(s) PO BID 08/07/2018 08/13/2018 Inactive ropinirole 4 mg tablet RxNorm: 466756 1 Tablet(s) PO QHS replac es 1mg dose 08/07/2018 08/20/2018 Inactive ropinirole 2 mg tablet RxNorm: 452213 TAKE 3 TABLETS BY MOUTH DAILY AT BEDTIME DO NOT EXCEED 3 TABLETS PER DAY!!!! 07/31/2018 08/06/2018 Inactive Generic For:REQUIP 2 MG TABLET 07/30/2018 3:50:28 PM Symbicort 160 mcg-4.5 mcg/actuation HFA aerosol inhaler RxNo rm: 5600792 2 Puff(s) INH BID 07/12/2018 10/09/2018 Inactive Sinemet CR 50 mg-200 mg tablet,extended release RxNorm: 8343 41 TAKE 1 TABLET BY MOUTH TWICE DAILY 07/08/2018 09/26/2018 Inactive Generic For:*S INEMET CR 50/200 TABLET SA 07/08/2018 3:09:11 PM losartan 100 mg tablet RxNorm: 427722 1 Tablet(s) PO QD replace s lisinopril 06/17/2018 12/13/2018 Inactive Novolog U-100 Insulin aspart 100 unit/mL subcutaneous soluti on RxNorm: 488960 10 Unit(s) SQ AC 06/17/2018 10/09/2018 Inactive albuterol sulfate 2.5 mg/3 mL (0.083 %) solution for n ebulization RxNorm: 696121 Milliliter(s) INH USE 1 VIAL IN NEBULIZE R EVERY FOUR HOURS NEEDED FOR WHEEZING OR SHORTNESS OF BREATH 06/13/2018 01/16/2019 Inactive Generic For:*PROVENTIL 0.83 MG/ML SOLUTN 06/13/2013 2:04:46 PM ropinirole 2 mg tablet RxNorm: 426183 3 Tablet(s) PO QH S DO NOT EXCEED 6MG (3 TABLETS) PER DAY!!!! 06/13/2018 07/31/2018 Inactive atorvastatin 40 mg tablet RxNorm: 954625 Tablet(s) TAKE 1 TABLET BY MOUTH EVERY DAY 05/13/2018 12/18/2018 Inactive Generic For:LIPI TOR 40MG TAB 05/01/2018 8:37:31 AM Sinemet CR 50 mg-200 mg tablet,extended release RxNorm: 8343 41 1 Tablet(s) PO BID 05/08/2018 07/06/2018 Inactive Lidocaine Viscous 2 % mucosal solution RxNorm: 8536553 5 Milliliter(s) PO QID as needed 05/02/2018 08/06/2018 Inactive Diflucan 100 mg tablet RxNorm: 337785 1 Tablet(s) PO QD 05/02/2018 Inactive atorvastatin 40 mg tablet RxNorm: 003886 TAKE 1 TABLET BY MOUTH EVERY DAY 05/01/2018 05/13/2018 Inactive Generic For:LIPITOR 40MG TAB 05/01/2018 8:37:31 AM nystatin 100,000 unit/mL oral suspension RxNorm: 524836 5 Unit(s) PO QID (before meals and at bedtime) 04/24/2018 04/30/2018 Inactive Ventolin HFA 90 mcg/actuation aerosol inhaler RxNorm: 675271 2 Puff(s) INH Q4H as needed one inhaler for home and one inhaler for car 04/23/201812/18 Inactive Mucinex 600 mg tablet, extended release RxNorm: 009780 1 Tablet(s) PO BID for congestion 04/22/2018 05/21/2018 Inactive prednisone 10 mg tablet RxNorm: 451176 Tablet(s) PO as directeds 08/06/2018 Inactive ropinirole 2 mg tablet RxNorm: 010236 3 Tablet(s) PO QH S DO NOT EXCEED 6MG (3 TABLETS) PER DAY!!!! 04/09/2018 05/08/2018 Inactive gabapentin 300 mg capsule RxNorm: 920588 1-2 Capsule(s) PO QHS 02/201804/08/2018 Inactive ropinirole 2 mg tablet RxNorm: 932214 1 Tablet(s) PO QHS 03/28/2018 0 04/08/2018 Inactive gabapentin 300 mg capsule RxNorm: 629963 1-2 Capsule(s) PO QHS 02/2303/29/2018 Inactive gabapentin 300 mg capsule RxNorm: 011605 1-2 Capsule(s) PO QHS 02/2203/13/2018 Inactive gabapentin 300 mg capsule RxNorm: 466822 2 Capsule(s) PO QHS 201703/11/2018 Inactive ropinirole 2 mg tablet RxNorm: 278371 1 Tablet(s) PO QHS 02/28/2018 0 03/28/2018 Inactive ropinirole 2 mg tablet RxNorm: 394188 1 Tablet(s) PO QHS 02/28/2018 0 02/27/2018 Inactive gabapentin 300 mg capsule RxNorm: 091607 1 Capsule(s) PO QHS 201702/27/2018 Inactive pantoprazole 40 mg tablet,delayed release RxNorm: 485651 1 Tablet(s) PO QD forstomach 01/23/2018 05/22/2018 Inactive Voltaren 1 % topical gel RxNorm: 071134 1 Gram(s) TOP QID to ri ght knee 01/23/2018 02/04/2018 Inactive metformin ER 500 mg tablet,extended release 24hr RxNorm: 860 975 2 Tablet(s) PO BID 01/09/2018 12/08/2018 Inactive Requip 1 mg tablet RxNorm: 091182 1 Tablet(s) PO QHS 01/09/201802/27 Inactive prednisone 20 mg tablet RxNorm: 794707 1 Tablet(s) PO T ID for 3 days then 1 po BID for 3 days then one daily for 3 days 01/02/2018 02/03/2018 Inactiv e Levaquin 500 mg tablet RxNorm: 199765 1 Tablet(s) PO QD 01/02/2018 Inactive ProAir HFA 90 mcg/actuation aerosol inhaler RxNorm: 937492 2 Puff(s) INH Q4H as needed 12/28/2017 No Stop Date Active please switch to ventolin if insurance doesn't cover montelukast 10 mg tablet RxNorm: 788736 1 Tablet(s) PO QD 12/28/2017 02/03/2018 Inactive Levaquin 500 mg tablet RxNorm: 891418 1 Tablet(s) PO QD 12/21/2017 Inactive ProAir HFA 90 mcg/actuation aerosol inhaler RxNorm: 800458 2 Puff(s) INH Q4H as needed 12/21/2017 12/27/2017 Inactive please switch to ventolin if insurance doesn't cover doxycycline hyclate 100 mg tablet RxNorm: 460210 1 Tablet(s) PO BID 12/17/2017 12/26/2017 Inactive Levemir FlexTouch U-100 Insulin 100 unit/mL (3 mL) sub cutaneous pen RxNorm: 732419 20 Unit(s) SQ QD with pen needles---Due for labs 12/11/2017 02/03/2018 Inactive Requip 1 mg tablet RxNorm: 589109 1 Tablet(s) PO QHS 12/10/201712/09 Inactive Requip 1 mg tablet RxNorm: 799631 1 Tablet(s) PO QHS 12/10/201701/09 Inactive albuterol sulfate 2.5 mg/3 mL (0.083 %) solution for n ebulization RxNorm: 537009 Milliliter(s) INH USE 1 VIAL IN NEBULIZE R EVERY FOUR HOURS NEEDED FOR WHEEZING OR SHORTNESS OF BREATH 12/05/2017 06/13/2018 Inactive Generic For:*PROVENTIL 0.83 MG/ML SOLUTN 06/13/2013 2:04:46 PM Tudorza Pressair 400 mcg/actuation breath activated RxNorm: 4224935 1 Puff(s) INH BID 12/03/2017 12/10/2017 Inactive Levemir FlexTouch U-100 Insulin 100 unit/mL (3 mL) sub cutaneous pen RxNorm: 573129 10 Unit(s) SQ QD with pen needles---Due for labs 11/16/2017 12/10/2017 Inactive Zofran ODT 4 mg disintegrating tablet RxNorm: 839475 1 Tablet(s) PO Q4H as needed for nausea 10/17/2017 02/04/2018 Inactive Efudex 5 % topical cream RxNorm: 857267 Application TOP QD prn to precancer skin lesions 10/17/2017 02/03/2018 Inactive Sinemet CR 50 mg-200 mg tablet,extended release RxNorm: 8343 41 1 Tablet(s) PO BID 10/17/2017 02/05/2018 Inactive Sinemet CR 50 mg-200 mg tablet,extended release RxNorm: 8343 41 1 Tablet(s) PO QHS 09/25/2017 10/16/2017 Inactive gabapentin 600 mg tablet RxNorm: 267810 1 Tablet(s) PO BID 08/15/20 17 08/14/2017 Inactive gabapentin 600 mg tablet RxNorm: 661087 1 Tablet(s) PO BID 08/15/20 17 12/10/2017 Inactive Novolog U-100 Insulin aspart 100 unit/mL subcutaneous soluti on RxNorm: 953033 10 Unit(s) SQ AC 08/15/2017 02/03/2018 Inactive Novolog 100 unit/mL subcutaneous solution RxNorm: 385295 10 Uni t(s) SQ AC 08/13/2017 08/14/2017 Inactive prednisone 20 mg tablet RxNorm: 997567 2 Tablet(s) PO QD 08/02/2017 1 10/04/2016 Inactive gabapentin 600 mg tablet RxNorm: 403915 Tablet(s) 1 Tab let(s) PO QHS replaces 300mg dose 07/09/2017 08/14/2017 Inactive Breo Ellipta 100 mcg-25 mcg/dose powder for inhalation RxNor m: 2511156 1 Unit Dose INH QD 07/02/2017 08/30/2017 Inactive Tudorza Pressair 400 mcg/actuation breath activated RxNorm: 0524589 1 Puff(s) INH BID 06/18/2017 12/02/2017 Inactive gabapentin 600 mg tablet RxNorm: 156660 1 Tablet(s) PO QHS repl aces 300mg dose 06/14/2017 07/08/2017 Inactive metformin ER 1,000 mg tablet,extended release 24hr RxNorm: 1 638121 1 Tablet(s) PO BID 05/29/2017 01/08/2018 Inactive cyclobenzaprine 5 mg tablet RxNorm: 543929 1 Tablet(s) PO TID 05/2906/07/2017 Inactive metformin ER 1,000 mg tablet,extended release 24hr RxNorm: 8 35194 1 Tablet(s) PO BID 05/25/2017 05/28/2017 Inactive metformin ER 1,000 mg tablet,extended release 24hr RxNorm: 8 04580 1 Tablet(s) PO BID 05/22/2017 05/24/2017 Inactive Amaryl 2 mg tablet RxNorm: 941691 1 Tablet(s) PO BID 05/01/201702/03 Inactive glimepiride 2 mg tablet RxNorm: 038244 1 Tablet(s) PO BID 04/19/2017 02/03/2018 Inactive ferrous sulfate 325 mg (65 mg iron) tablet RxNorm: 772652 1 Tab let(s) PO QHS 04/17/2017 02/03/2018 Inactive Requip 4 mg tablet RxNorm: 861194 1 Tablet(s) PO BID 04/12/201704/11 Inactive Requip 4 mg tablet RxNorm: 207647 1 Tablet(s) PO BID 04/12/201704/15 Inactive Levemir FlexTouch 100 unit/mL (3 mL) subcutaneous insulin pe n RxNorm: 400756 10 Unit(s) SQ QD with pen needles---Due for labs 04/05/2017 11/15/2017 In active Silenor 3 mg tablet RxNorm: 864983 1 Tablet(s) PO QHS 04/05/201709/25 Inactive ropinirole 4 mg tablet RxNorm: 243662 1 Tablet(s) PO QHS 03/29/2017 0 04/01/2017 Inactive ropinirole 4 mg tablet RxNorm: 586274 1 Tablet(s) PO QHS 03/29/2017 0 03/28/2017 Inactive Requip 4 mg tablet RxNorm: 148845 1 Tablet(s) PO QHS 03/28/201704/01 Inactive gabapentin 600 mg tablet RxNorm: 120028 1 Tablet(s) PO QHS repl aces 300mg dose 03/28/2017 04/15/2017 Inactive Requip 4 mg tablet RxNorm: 521532 1 Tablet(s) PO QHS 03/23/201703/27 Inactive gabapentin 600 mg tablet RxNorm: 759463 1 Tablet(s) PO QHS 03/13/20 17 03/12/2017 Inactive gabapentin 600 mg tablet RxNorm: 363287 1 Tablet(s) PO QHS 03/13/20 17 03/27/2017 Inactive gabapentin 300 mg capsule RxNorm: 795190 1 Capsule(s) PO QPM 201603/12/2017 Inactive Generic For:NEURONTIN 300 MG CAPSULE 01/22/2017 10:10:39 AM losartan 100 mg tablet RxNorm: 675001 1 Tablet(s) PO QD replace s lisinopril 02/21/2017 06/17/2018 Inactive gabapentin 300 mg capsule RxNorm: 485767 TAKE 1 CAPSULE BY MOUT H EVERY EVENING 01/22/2017 02/21/2017 Inactive Generic For:NEURONTI N 300 MG CAPSULE 01/22/2017 10:10:39 AM gabapentin 300 mg capsule RxNorm: 384726 1 Capsule(s) PO QPM 201601/21/2017 Inactive Requip 4 mg tablet RxNorm: 669069 1 Tablet(s) PO QHS 12/21/201603/20 Inactive Effient 10 mg tablet RxNorm: 658779 1 Tablet(s) PO QD 12/12/201612/23 Inactive gabapentin 300 mg capsule RxNorm: 635558 1 Capsule(s) PO QPM 201612/03/2016 Inactive gabapentin 300 mg capsule RxNorm: 496521 1 Capsule(s) PO QPM 201612/13/2016 Inactive Requip 4 mg tablet RxNorm: 681391 1 Tablet(s) PO QHS 11/28/201612/21 Inactive atorvastatin 40 mg tablet RxNorm: 357488 Tablet(s) 1 Tablet(s) PO Q D 11/22/2016 08/18/2017 Inactive atorvastatin 40 mg tablet RxNorm: 325329 1 Tablet(s) PO QD 11/23/19 17 11/21/2016 Inactive ropinirole 1 mg tablet RxNorm: 258685 2.5 Tablet(s) PO QPM for legs/sleep 11/14/2016 11/27/2016 Inactive nystatin 100,000 unit/mL oral suspension RxNorm: 827069 5 Unit(s) PO QID swish and spit 10/31/2016 02/03/2018 Inactive fluconazole 100 mg tablet RxNorm: 450337 1 Tablet(s) PO QD 10/31/19 17 11/09/2016 Inactive doxycycline hyclate 100 mg capsule RxNorm: 8753298 1 Capsule(s) PO BID 10/03/2016 10/12/2016 Inactive Levemir FlexTouch 100 unit/mL (3 mL) subcutaneous insulin pe n RxNorm: 970781 10 Unit(s) SQ QD with pen needles 09/18/2016 04/04/2017 Inactive amitriptyline 25 mg tablet RxNorm: 466476 1 Tablet(s) P O QHS as needed for sleep 09/04/2016 10/17/2016 Inactive ropinirole 1 mg tablet RxNorm: 030790 1.5 Tablet(s) PO QPM for legs/sleep 09/04/2016 11/13/2016 Inactive amitriptyline 25 mg tablet RxNorm: 507471 1 Tablet(s) P O QHS as needed for sleep 08/22/2016 09/03/2016 Inactive clopidogrel 75 mg tablet RxNorm: 525885 1 Tablet(s) PO QD 08/10/2016 10/17/2016 Inactive Zoloft 100 mg tablet RxNorm: 651291 2 Tablet(s) PO QHS 08/10/2016 Inactive atorvastatin 40 mg tablet RxNorm: 445105 1 Tablet(s) PO QD 08/10/20 16 10/17/2016 Inactive ropinirole 1 mg tablet RxNorm: 503327 1 Tablet(s) PO QPM for le gs/sleep 08/10/2016 09/03/2016 Inactive losartan 100 mg tablet RxNorm: 212539 1 Tablet(s) PO QD replace s lisinopril 07/20/2016 02/21/2017 Inactive Zofran 4 mg tablet RxNorm: 019377 1 Tablet(s) PO Q4H as needed for nausea 07/06/2016 10/17/2016 Inactive Flagyl 500 mg tablet RxNorm: 268986 1 Tablet(s) PO TID 07/06/2016 Inactive Plavix 75 mg tablet RxNorm: 506613 1 Tablet(s) PO QD 06/08/201607/05 Inactive isosorbide mononitrate ER 30 mg tablet,extended release 24 h r RxNorm: 823712 1 Tablet(s) PO QAM 06/08/2016 08/09/2016 Inactive atorvastatin 40 mg tablet RxNorm: 075550 1 Tablet(s) PO QD 06/08/20 16 08/09/2016 Inactive hydrochlorothiazide 12.5 mg tablet RxNorm: 240291 1 Tablet(s) PO QA M 06/08/2016 07/05/2016 Inactive metformin ER 1,000 mg tablet,extended release 24hr RxNorm: 8 52338 1 Tablet(s) PO BID 06/08/2016 09/05/2016 Inactive metoprolol tartrate 25 mg tablet RxNorm: 222319 1/2 Tablet(s) PO BI D 06/08/2016 08/09/2016 Inactive Zoloft 100 mg tablet RxNorm: 808461 2 Tablet(s) PO QHS 04/03/2016 Inactive metformin ER 1,000 mg tablet,extended release 24hr RxNorm: 8 21127 Tablet(s) 1 Tablet(s) PO QD 03/30/2016 12/18/2018 Inactive Levemir FlexTouch 100 unit/mL (3 mL) subcutaneous insulin pe n RxNorm: 738005 10 Unit(s) SQ QD 03/09/2016 03/08/2016 Inactive Levemir FlexTouch 100 unit/mL (3 mL) subcutaneous insulin pe n RxNorm: 156234 10 Unit(s) SQ QD with pen needles 03/09/2016 03/20/2016 Inactive Mobic 15 mg tablet RxNorm: 386934 1 Tablet(s) PO QD for foot pain 0 02/17/2016 03/17/2016 Inactive Zoloft 100 mg tablet RxNorm: 631018 1 1/2 Tablet(s) PO QHS 01/31/20 16 04/02/2016 Inactive omeprazole 20 mg capsule,delayed release RxNorm: 207551 TAKE 2 CAPSULES BY MOUTH EVERY DAY 01/12/2016 08/09/2016 Inactive Generic For:*CHERYL LOSEC 20 MG CAPSULE 01/12/2016 8:58:34 AM Zoloft 100 mg tablet RxNorm: 753628 1/2 Tablet(s) PO QH S for 1 week then 1 tablet po q HS 12/30/2015 01/27/2016 Inactive Ventolin HFA 90 mcg/actuation aerosol inhaler RxNorm: 383833 2 Puff(s) INH QID as needed for shortness of breath 12/30/2015 02/03/2018 Inactive [AttnRPh: Saving apply/adjudicate RxGRP:SG20 RxBIN:[id number] RxPCN: ID#:[id number]] metformin ER 1,000 mg tablet,extended release 24hr RxNorm: 8 51219 1 Tablet(s) PO QD 12/20/2015 03/18/2016 Inactive clindamycin 300 mg capsule RxNorm: 536818 1 Capsule(s) PO TID 12/0512/15/2015 Inactive mupirocin 2 % topical cream RxNorm: 821655 TOP to facial lesion s twice daily 11/15/2015 12/15/2015 Inactive cefdinir 300 mg capsule RxNorm: 912686 1 Capsule(s) PO BID 11/15/19 16 11/24/2015 Inactive Medrol (Gui) 4 mg tablets in a dose pack RxNorm: 284693 Tablet(s) PO as directed 10/11/2015 12/15/2015 Inactive albuterol sulfate 2.5 mg/3 mL (0.083 %) solution for n ebulization RxNorm: 793213 INH USE 1 VIAL IN NEBULIZER EVERY FOUR H OURS NEEDED FOR WHEEZING OR SHORTNESS OF BREATH 10/05/2015 10/04/2015 Inactive Generic For:*PRO VENTIL 0.83 MG/ML SOLUTN 06/13/2013 2:04:46 PM doxycycline hyclate 100 mg capsule RxNorm: 6335279 1 Capsule(s) PO BID 10/05/2015 10/14/2015 Inactive albuterol sulfate 2.5 mg/3 mL (0.083 %) solution for n ebulization RxNorm: 703740 Milliliter(s) INH USE 1 VIAL IN NEBULIZE R EVERY FOUR HOURS NEEDED FOR WHEEZING OR SHORTNESS OF BREATH Dx: J44.9 10/05/2015 12/05/2017 Inacti ve Generic For:*PROVENTIL 0.83 MG/ML SOLUTN 06/13/2013 2:04:46 PM albuterol sulfate 2.5 mg/3 mL (0.083 %) solution for n ebulization RxNorm: 662380 3 Milliliter(s) INH USE 1 VIAL IN NEBULI ZER EVERY FOUR HOURS NEEDED FOR WHEEZING OR SHORTNESS OF BREATH 09/06/2015 10/04/2015 Inactive Generic For:*PROVENTIL 0.83 MG/ML SOLUTN 06/13/2013 2:04:46 PM Tradjenta 5 mg tablet RxNorm: 6932326 2 Tablet(s) PO QD 07/22/2015 Inactive albuterol sulfate 2.5 mg/3 mL (0.083 %) solution for n ebulization RxNorm: 979599 3 Milliliter(s) INH USE 1 VIAL IN NEBULI ZER EVERY FOUR HOURS NEEDED FOR WHEEZING OR SHORTNESS OF BREATH 06/29/2015 09/05/2015 Inactive Generic For:*PROVENTIL 0.83 MG/ML SOLUTN 06/13/2013 2:04:46 PM albuterol sulfate 2.5 mg/3 mL (0.083 %) solution for n ebulization RxNorm: 373320 Milliliter(s) INH USE 1 VIAL IN NEBULIZE R EVERY FOUR HOURS NEEDED FOR WHEEZING OR SHORTNESS OF BREATH 06/29/2015 12/04/2017 Inactive Generic For:*PROVENTIL 0.83 MG/ML SOLUTN 06/13/2013 2:04:46 PM doxycycline hyclate 100 mg tablet RxNorm: 802690 1 Tablet(s) PO BID 06/28/2015 07/07/2015 Inactive losartan 100 mg tablet RxNorm: 359593 1 Tablet(s) PO QD -replac es lisinopril 06/14/2015 09/05/2015 Inactive metformin ER 1,000 mg tablet,extended release 24hr RxNorm: 8 78326 1 Tablet(s) PO QD 06/14/2015 09/11/2015 Inactive losartan 100 mg tablet RxNorm: 968698 1 Tablet(s) PO QD -replac es lisinopril 06/14/2015 12/10/2015 Inactive Zocor 20 mg tablet RxNorm: 984801 Tablet(s) Tablet(s) 1 Tablet(s) PO QD -needs lipids labs 06/14/2015 06/14/2015 Inactive atorvastatin 40 mg tablet RxNorm: 134668 1 Tablet(s) PO QD repl aces simvastatin 06/14/2015 12/10/2015 Inactive loratadine 10 mg tablet RxNorm: 795709 Tablet(s) 1 Tablet(s) PO QD for drainage 06/14/2015 06/07/2016 Inactive Celexa 40 mg tablet RxNorm: 774178 1 Tablet(s) PO QD TA KE ONE (1) TABLET BY MOUTH DAILY 06/14/2015 12/29/2015 Inactive Generic For:HARJINDER XA 40 MG TABLET clindamycin 300 mg capsule RxNorm: 024318 2 Capsule(s) PO BID 06/0306/12/2015 Inactive metformin ER 1,000 mg tablet,extended release 24hr RxNorm: 8 57486 1 Tablet(s) PO QD 06/03/2015 06/02/2015 Inactive metformin ER 1,000 mg tablet,extended release 24hr RxNorm: 8 15277 1 Tablet(s) PO QD 06/03/2015 06/13/2015 Inactive mupirocin 2 % topical ointment RxNorm: 015330 TOP apply to open lesion of knee twice daily 06/03/2015 01/30/2016 Inactive Zocor 20 mg tablet RxNorm: 267763 Tablet(s) 1 Tablet(s ) PO QD -needs lipids labs 05/13/2015 06/13/2015 Inactive Celexa 40 mg tablet RxNorm: 026330 1 Tablet(s) PO QD TA KE ONE (1) TABLET BY MOUTH DAILY 05/13/2015 06/13/2015 Inactive Generic For:HARJINDER XA 40 MG TABLET Zocor 20 mg tablet RxNorm: 000453 Tablet(s) 1 Tablet(s ) PO QD -needs lipids labs 02/23/2015 03/24/2015 Inactive loratadine 10 mg tablet RxNorm: 554378 1 Tablet(s) PO QD for dr saenz 12/24/2014 06/13/2015 Inactive Zocor 20 mg tablet RxNorm: 649883 1 Tablet(s) PO QD -needs lipi ds labs 11/17/2014 02/23/2015 Inactive Celexa 40 mg tablet RxNorm: 452364 1 Tablet(s) PO QD 1 Tablet(s) PO QD 1 Tablet(s) PO QD Generic OKAY 11/11/2014 05/13/2015 Inactive Zocor 20 mg tablet RxNorm: 376444 1 Tablet(s) PO QD -needs lipi ds labs 11/11/2014 11/16/2014 Inactive omeprazole 20 mg capsule,delayed release RxNorm: 231205 2 Capsule(s) PO QD TAKE 2 CAPSULES BY MOUTH DAILY 10/27/2014 04/24/2015 Inactive Generi c For:*PRILOSEC [address] trazodone 50 mg tablet RxNorm: 970159 1 1/2 Tablet(s) PO QHS 201412/29/2015 Inactive losartan 100 mg tablet RxNorm: 087382 1 Tablet(s) PO QD -replac es lisinopril 10/26/2014 04/23/2015 Inactive Levaquin 500 mg tablet RxNorm: 021410 1 Tablet(s) PO QD 10/08/2014 Inactive Levaquin 500 mg tablet RxNorm: 045507 1 Tablet(s) PO QD 10/08/2014 Inactive Diflucan 100 mg tablet RxNorm: 649085 1 Tablet(s) PO QD 10/06/2014 Inactive DuoNeb 0.5 mg-3 mg(2.5 mg base)/3 mL solution for nebulizati on RxNorm: 8659504 3 Milliliter(s) INH QID 09/23/2014 08/09/2016 Inactive Ventolin HFA 90 mcg/actuation aerosol inhaler RxNorm: 597160 2 Puff(s) INH QID as needed for shortness of breath 09/21/2014 12/29/2015 Inactive [AttnRPh: Saving apply/adjudicate RxGRP:SG20 RxBIN:[id number] RxPCN: ID#:[id number]] promethazine-codeine 6.25 mg-10 mg/5 mL syrup RxNorm: 277844 1 Teaspoon(s) PO QHS as needed for cough 09/08/2014 09/20/2014 Inactive prednisone 20 mg tablet RxNorm: 911380 1 Tablet(s) PO BID 09/02/2014 09/08/2014 Inactive promethazine-codeine 6.25 mg-10 mg/5 mL syrup RxNorm: 563004 1 Teaspoon(s) PO Q4H 09/02/2014 09/20/2014 Inactive doxycycline monohydrate 100 mg capsule RxNorm: 485262 1 Capsule (s) PO BID 09/02/2014 09/07/2014 Inactive Tessalon Perles 100 mg capsule RxNorm: 462006 1 Capsule (s) PO TID as needed for cough 08/31/2014 09/20/2014 Inactive Actos 15 mg tablet RxNorm: 400809 1 Tablet(s) PO QAM 1 Tablet(s ) PO QAM 08/26/2014 09/20/2014 Inactive loratadine 10 mg tablet RxNorm: 736346 1 Tablet(s) PO QD for dr saenz 08/26/2014 10/26/2014 Inactive Zithromax 500 mg tablet RxNorm: 977535 1 Tablet(s) PO QD 08/25/2014 1 11/01/2013 Inactive Zithromax 500 mg tablet RxNorm: 318499 1 Tablet(s) PO QD 08/25/2014 1 10/25/2013 Inactive Trazadone 75mg Tablet RxNorm: 1 Tablet(s) PO QHS 08/10/20142018 Inactive Zocor 20 mg tablet RxNorm: 886207 1 Tablet(s) PO QD 08/10/20142014 Inactive Trazadone 75mg Tablet RxNorm: 1 Tablet(s) PO QHS as need ed for sleep 08/10/2014 10/08/2014 Inactive Celexa 40 mg tablet RxNorm: 018600 1 Tablet(s) PO QD 1 Tablet(s) PO QD 1 Tablet(s) PO QD Generic OKAY 06/09/2014 10/06/2014 Inactive Actos 15 mg tablet RxNorm: 903884 1 Tablet(s) PO QAM 05/12/201408/26 Inactive lisinopril 20 mg tablet RxNorm: 276104 1 Tablet(s) PO QD 05/12/2014 0 10/26/2014 Inactive TAKE ONE TABLET BY MOUTH EVERY DAY;Gener ic For:*PRINIVIL 20 MG TABLET [AttnRPh: Saving apply/adjudicate RxGRP:SG20 RxBIN:[id number] RxPCN: ID#:[id number]] hydrocodone 5 mg-acetaminophen 325 mg tablet RxNorm: 521066 1 Tablet(s) PO TID as needed for pain for severe pain 04/30/2014 08/09/2014 Inactive hydrocodone 5 mg-acetaminophen 325 mg tablet RxNorm: 854990 1 Tablet(s) PO TID as needed for pain for severe pain 04/17/2014 04/29/2014 Inactive doxycycline hyclate 100 mg capsule RxNorm: 533775 1 Capsule(s) PO BID 03/05/2014 03/04/2014 Inactive doxycycline hyclate 100 mg capsule RxNorm: 671105 1 Capsule(s) PO BID 03/05/2014 03/14/2014 Inactive albuterol sulfate 2.5 mg/3 mL (0.083 %) solution for n ebulization RxNorm: 783117 Milliliter(s) INH USE 1 VIAL IN NEBULIZE R EVERY FOUR HOURS NEEDED FOR WHEEZING OR SHORTNESS OF BREATH 03/02/2014 06/29/2015 Inactive Generic For:*PROVENTIL 0.83 MG/ML SOLUTN 06/13/2013 2:04:46 PM Celexa 40 mg tablet RxNorm: 380704 1 Tablet(s) PO QD 1 Tablet(s) PO QD replaces lexapro. Generic OKAY 01/13/2014 06/09/2014 Inactive Actos 15 mg tablet RxNorm: 975793 1 Tablet(s) PO QAM 01/07/201405/12 Inactive lisinopril 20 mg tablet RxNorm: 395055 1 Tablet(s) PO QD 12/08/2013 0 05/12/2014 Inactive TAKE ONE TABLET BY MOUTH EVERY DAY;Gener ic For:*PRINIVIL 20 MG TABLET cefdinir 300 mg capsule RxNorm: 809748 2 Capsule(s) PO QD 11/10/2013 08/09/2014 Inactive cefdinir 300 mg capsule RxNorm: 797911 2 Capsule(s) PO QD 10/09/2013 10/15/2013 Inactive Actos 15 mg tablet RxNorm: 529128 1 Tablet(s) PO QAM 10/09/201301/06 Inactive doxycycline hyclate 100 mg capsule RxNorm: 5867167 1 Capsule(s) PO Q12H 09/18/2013 09/27/2013 Inactive omeprazole 20 mg capsule,delayed release RxNorm: 717152 2 Capsule(s) PO QD TAKE 2 CAPSULES BY MOUTH DAILY 09/03/2013 03/01/2014 Inactive Generi c For:*PRILOSEC [address] Celexa 40 mg tablet RxNorm: 339893 1 Tablet(s) PO QD re places lexapro. Generic OKAY 09/03/2013 01/13/2014 Inactive Symbicort 160 mcg-4.5 mcg/actuation HFA aerosol inhaler RxNo rm: 1663876 2 Puff(s) INH BID 08/13/2013 03/23/2014 Inactive metformin 1,000 mg tablet RxNorm: 065704 1 Tablet(s) PO BID 013 08/12/2013 Inactive TAKE ONE TABLET BY MOUTH TWI CE DAILY;Generic For:GLUCOPHAGE 1,000 MG TABLET 08/27/12 Thank you Actos 15 mg tablet RxNorm: 050655 1 Tablet(s) PO QAM 06/23/201310/09 Inactive lisinopril 20 mg tablet RxNorm: 054036 1 Tablet(s) PO QD 06/23/2013 0 12/08/2013 Inactive TAKE ONE TABLET BY MOUTH EVERY DAY;Gener ic For:*PRINIVIL 20 MG TABLET albuterol sulfate 2.5 mg/3 mL (0.083 %) solution for n ebulization RxNorm: 466304 Solution for Nebulization INH USE 1 VIAL IN NEBULIZER EVERY FOUR HOURS NEEDED FOR WHEEZING OR SHORTNESS OF BREATH 06/16/2013 03/01/2014 Inactive Generic For:*PROVENTIL 0.83 MG/ML SOLUTN 06/13/2013 2:04:46 PM prednisone 10 mg tablet RxNorm: 605392 1 Tablet(s) PO BID 04/09/2013 04/13/2013 Inactive AndroGel 1.25 gram/actuation (1%) Transdermal Gel Pump RxNorm: 2 30991 TD 04/09/2013 08/09/2014 Inactive APPLY 4 PUMPS OF GEL AT BEDTIME DIRECTED;WC (Appended: Controlled substance eRx refill - RxReferenceNumber: [id number]) azithromycin 250 mg tablet RxNorm: 763015 2 Tablet(s) PO QD 013 04/16/2013 Inactive Amaryl 2 mg tablet RxNorm: 101562 1 Tablet(s) PO BID N eeds appt in 1 month (around March 21) 02/18/2013 08/12/2013 Inactive Amaryl 2 mg tablet RxNorm: 146609 1 Tablet(s) PO BID 02/18/201302/17 Inactive metformin 1,000 mg tablet RxNorm: 674067 1 Tablet(s) PO BID 013 07/27/2013 Inactive TAKE ONE TABLET BY MOUTH TWI CE DAILY;Generic For:GLUCOPHAGE 1,000 MG TABLET 08/27/12 Thank you Actos 15 mg tablet RxNorm: 575600 1 Tablet(s) PO QAM 02/04/201306/03 Inactive albuterol sulfate 2.5 mg/3 mL (0.083 %) Neb Solution RxNorm: 017764 1 Unit Dose INH Q4H prn wheezing or shortness of breath 01/30/2013 06/15/2013 Inac tive Medrol (Gui) 4 mg tablets in a dose pack RxNorm: 424982 Tablet(s) PO as directed 01/20/2013 07/15/2013 Inactive cefdinir 300 mg capsule RxNorm: 530885 1 Capsule(s) PO BID anti biotic 01/20/2013 01/29/2013 Inactive lisinopril 20 mg tablet RxNorm: 590594 Tablet(s) PO 01/13/20132012 Inactive TAKE ONE TABLET BY MOUTH EVERY DAY;Gener ic For:*PRINIVIL 20 MG TABLET citalopram 40 mg tablet RxNorm: 026494 Tablet(s) PO 01/13/20132013 Inactive TAKE ONE (1) TABLET BY MOUTH DAILY;Gener ic For:CELEXA 40 MG TABLET omeprazole 20 mg capsule,delayed release RxNorm: 691082 Capsule(s) PO TAKE 2 CAPSULES BY MOUTH DAILY 11/15/2012 09/03/2013 Inactive Generic For:*PRILOSEC [address] amoxicillin 875 mg tablet RxNorm: 377985 1 Tablet(s) PO BID 013 10/28/2012 Inactive Actos 30 mg tablet RxNorm: 918351 1 Tablet(s) PO QD 09/23/20122011 Inactive Actos 15 mg tablet RxNorm: 265717 1 Tablet(s) PO QAM 09/23/201209/22 Inactive Actos 15 mg tablet RxNorm: 095935 1 Tablet(s) PO QAM 09/23/201202/04 Inactive prednisone 20 mg tablet RxNorm: 683913 1 Tablet(s) PO BID 08/28/2012 09/03/2012 Inactive doxycycline hyclate 100 mg tablet RxNorm: 1971359 1 Tablet(s) PO BI D 08/28/2012 09/06/2012 Inactive metformin 1,000 mg tablet RxNorm: 636390 Tablet(s) PO 08/27/201201/22 Inactive TAKE ONE TABLET BY MOUTH TWICE DAILY;Gen joshua For:GLUCOPHAGE 1,000 MG TABLET 08/27/12 Thank you citalopram 40 mg tablet RxNorm: 134355 Tablet(s) PO 07/30/20122012 Inactive TAKE ONE (1) TABLET BY MOUTH DAILY;Gener ic For:CELEXA 40 MG TABLET lisinopril 20 mg tablet RxNorm: 702223 Tablet(s) PO 07/30/20122012 Inactive TAKE ONE TABLET BY MOUTH EVERY DAY;Gener ic For:*PRINIVIL 20 MG TABLET AndroGel 1.25 gram/actuation (1%) Transdermal Gel Pump RxNor m: [id number] Gel in Metered-Dose Pump TD 07/09/2012 04/08/2013 Inactive APPLY 4 PUM PS OF GEL AT BEDTIME DIRECTED;WC (Appended: Controlled substance eRx refill - RxReferenceNumber: [id number]) citalopram 40 mg tablet RxNorm: 813074 Tablet(s) PO 07/01/20122011 Inactive TAKE ONE (1) TABLET BY MOUTH DAILY;Gener ic For:CELEXA 40 MG TABLET metformin 1,000 mg tablet RxNorm: 074700 1 Tablet(s) PO BID 012 08/25/2012 Inactive TAKE 1 TABLET BY MOUTH TWICE DAILY;Generic For:GLUCOPHAGE 1,000 MG TABLET meclizine 25 mg Tab RxNorm: 362534 1 Tablet(s) PO QID prn dizziness 05/09/2012 05/18/2012 Inactive lisinopril 20 mg tablet RxNorm: 164714 Tablet(s) PO QD 04/22/2012 Inactive TAKE ONE (1) TABLET BY MOUTH DAILY;Gener ic For:*PRINIVIL 20 MG TABLET metformin 1,000 mg tablet RxNorm: 716655 Tablet(s) PO 03/19/201212/2011 Inactive TAKE 1 TABLET BY MOUTH TWICE DAILY;Gener ic For:GLUCOPHAGE 1,000 MG TABLET cefdinir 300 mg Cap RxNorm: 266505 1 Capsule(s) PO BID 11/28/2011 Inactive cefdinir 300 mg Cap RxNorm: 319170 1 Capsule(s) PO BID 11/01/2011 Inactive citalopram 40 mg tablet RxNorm: 618873 Tablet(s) PO 10/30/20112011 Inactive TAKE ONE (1) TABLET BY MOUTH DAILY;Gener ic For:CELEXA 40 MG TABLET cefdinir 300 mg Cap RxNorm: 469123 1 Capsule(s) PO BID 10/02/2011 Inactive metformin 1,000 mg Tab RxNorm: 248400 1 Tablet(s) PO BID 09/28/2011 0 01/25/2012 Inactive citalopram 40 mg Tab RxNorm: 195532 1 Tablet(s) PO QD 09/28/201111/2011 Inactive omeprazole 20 mg capsule,delayed release RxNorm: 131831 2 Capsu le(s) PO QD 09/28/2011 03/25/2012 Inactive lisinopril 20 mg Tab RxNorm: 807509 Tablet(s) PO 08/21/2011 04/21/2012 Inactive TAKE ONE (1) TABLET BY MOUTH DAILY;Generic For:*PRINIVIL 20 MG TABLET AndroGel 1.25 gram/actuation (1%) Transdermal Gel Pump RxNor m: [id number] Gel in Metered-dose Pump TD 08/21/2011 07/09/2012 Inactive APPLY 4 PUM PS OF GEL AT BEDTIME DIRECTED (Appended: Controlled substance eRx refill - RxReferenceNumber: [id number]) Lantus Solostar 100 unit/mL (3 mL) Sub-Q Insulin Pen RxNorm: 348149 30 Unit(s) SQ QD 06/20/2011 05/08/2012 Inactive Lantus Solostar 100 unit/mL (3 mL) Sub-Q Insulin Pen RxNorm: 653774 30 Unit(s) SQ QD 06/19/2011 06/19/2011 Inactive metformin 1,000 mg Tab RxNorm: 850932 1 Tablet(s) PO BID 05/12/2011 1 11/09/2010 Inactive citalopram 40 mg Tab RxNorm: 406233 1 Tablet(s) PO QD 03/06/201105/2011 Inactive metformin 1,000 mg Tab RxNorm: 234606 1 Tablet(s) PO BID 12/27/2010 0 04/25/2011 Inactive lisinopril 20 mg Tab RxNorm: 119653 Tablet(s) PO TAKE 1 TABLET BY MOUTH EVERY DAY;Generic For:*PRINIVIL 20 MG TABLET 12/26/2010 08/20/2011 Inactive Ceftin 500 mg Tab RxNorm: 869506 1 Tablet(s) PO BID 12/19/20102010 Inactive omeprazole 20 mg Cap, Delayed Release RxNorm: 444901 2 Capsule( s) PO QD 09/13/2010 03/11/2011 Inactive Byetta 10 mcg/0.04 mL per dose Sub-Q Pen Injector RxNorm: 84 7913 1 Unit Dose SQ BID 09/07/2010 10/06/2010 Inactive Celexa 40 mg tablet RxNorm: 061416 1 Tablet(s) PO QD re places lexapro. Generic OKAY 08/09/2010 02/04/2011 Inactive Actos 30 mg Tab RxNorm: 692111 1 Tablet(s) PO QD 08/09/2010 04/02/2011 Inactive lisinopril 20 mg Tab RxNorm: 569189 1 Tablet(s) PO QD 08/09/201011/22 Inactive metformin 1,000 mg Tab RxNorm: 636402 1 Tablet(s) PO BID 08/09/2010 0 12/06/2010 Inactive Metformin 1,000 mg Tab RxNorm: 899967 1 Tablet(s) PO BID 04/26/2010 0 04/25/2010 Inactive metformin 1,000 mg Tab RxNorm: 312394 1 Tablet(s) PO BID 04/26/2010 1 Inactive Lomotil 2.5 mg-0.025 mg Tab RxNorm: 5719234 1 Tablet(s) PO TID 1-2 TABS THREE TIMES DAILY 04/05/2010 04/07/2010 Inactive Mupirocin 2 % Topical Cream RxNorm: 026194 TOP BID 04/05/201003/25 Inactive lisinopril 20 mg Tab RxNorm: 079412 1 Tablet(s) PO QD 03/29/201010/2009 Inactive Actos 30 mg Tab RxNorm: 116827 1 Tablet(s) PO QD 03/29/2010 07/26/2010 Inactive Lisinopril 20 mg Tab RxNorm: 966114 1 Tablet(s) PO QD 02/27/201001/2010 Inactive Actos 30 mg Tab RxNorm: 157634 1 Tablet(s) PO QD 02/14/2010 03/28/2010 Inactive Celexa 40 mg Tab RxNorm: 529820 1 Tablet(s) PO QD replaces lexapro 01/13/2010 07/11/2010 Inactive Cyclobenzaprine 10 mg Tab RxNorm: 307196 1 Tablet(s) PO TID prn spasm 12/23/2009 01/21/2010 Inactive Cyclobenzaprine 10 mg Tab RxNorm: 294831 1 Tablet(s) PO TID 010 12/22/2009 Inactive Hydrocodone-Acetaminophen 7.5 mg-750 mg Tab RxNorm: 885610 1 Ta blet(s) PO Q4-6H 12/23/2009 12/22/2009 Inactive aspirin 81 mg tablet RxNorm: 391976 1 Tablet(s) PO QD No Start Date Active isosorbide mononitrate ER 60 mg tablet,extended release 24 h r RxNorm: 969445 1 Tablet(s) PO QD No Start Date Active amlodipine 5 mg tablet RxNorm: 089965 1 Tablet(s) PO QD No Start Date Active Vitamin D3 1,000 unit tablet RxNorm: 877606 3 Tablet(s) PO QD No St art Date 10/26/2014 Inactive Lexapro 20 mg Tab RxNorm: 627016 1 Tablet(s) PO QD No Start Date 12/24 Inactive loperamide 2 mg tablet RxNorm: 065931 Tablet(s) PO PRN No Start Date 06/07/2016 Inactive Levemir FlexTouch U-100 Insulin 100 unit/mL (3 mL) sub cutaneous pen RxNorm: 472014 22 Unit(s) SQ QD No Start Date 12/21/2019 Inactive Janumet 50 mg-1,000 mg Tab RxNorm: 492026 1 Tablet(s) PO BID No Sta rt Date 01/12/2010 Inactive Levemir U-100 Insulin 100 unit/mL subcutaneous solution RxNo rm: 323224 10 Unit(s) SQ QHS No Start Date 12/08/2018 Inactive Medrol (Gui) 4 mg tablets in a dose pack RxNorm: 019462 Tablet(s) PO Use as directed No Start Date 12/22/2018 Inactive aspirin 325 mg tablet RxNorm: 499968 1 Tablet(s) PO QD No Start Date 08/09/2016 Inactive Efudex 5 % Topical Cream RxNorm: 071589 Application TOP QD prn fto skin lesion No Start Date 08/12/2013 Inactive nitroglycerin 0.4 mg sublingual tablet RxNorm: 908830 Tablet(s) SL as needed No Start Date 12/18/2018 Inactive levofloxacin 500 mg tablet RxNorm: 068148 1 Tablet(s) PO QD No Star t Date 08/06/2018 Inactive ferrous sulfate 325 mg (65 mg iron) tablet RxNorm: 419926 1 Tab let(s) PO QHS No Start Date 04/16/2017 Inactive fluorouracil 5 % topical cream RxNorm: 087878 1 TOP No Start James e 08/06/2018 Inactive Vitamin D3 1,000 unit capsule RxNorm: 764428 1 Capsule(s) PO QD No Start Date 02/03/2018 Inactive Hydrocodone-Acetaminophen 7.5 mg-750 mg Tab RxNorm: 498076 1 Ta blet(s) PO PRN No Start Date 08/09/2014 Inactive pantoprazole 40 mg tablet,delayed release RxNorm: 533153 1 Tabl et(s) PO QD No Start Date 01/22/2018 Inactive omeprazole 20 mg Cap, Delayed Release RxNorm: 739563 2 Capsule( s) PO QD No Start Date 09/12/2010 Inactive DuoNeb 0.5 mg-3 mg(2.5 mg base)/3 mL solution for nebulizati on RxNorm: 8425610 INH Q4H as needed No Start Date 10/22/2018 Inactive Lyrica 75 mg capsule RxNorm: 344131 2 Capsule(s) PO QHS No Start Da te 03/09/2019 Inactive isosorbide mononitrate ER 30 mg tablet,extended release 24 h r RxNorm: 038373 1 Tablet(s) PO QD No Start Date 12/08/2018 Inactive Tradjenta 5 mg tablet RxNorm: 8742925 1 Tablet(s) PO QD No Start Da te 08/09/2016 Inactive Tudorza Pressair 400 mcg/actuation breath activated RxNorm: 1405753 1 Puff(s) INH BID No Start Date 06/17/2017 Inactive Lantus Solostar 100 unit/mL (3 mL) Sub-Q Insulin Pen RxNorm: 504471 30 Unit(s) SQ QD No Start Date 06/18/2011 Inactive Requip 4 mg tablet RxNorm: 989379 1 Tablet(s) PO BID No Start Date Inactive Symbicort 160 mcg-4.5 mcg/actuation HFA aerosol inhaler RxNo rm: 9602013 2 Puff(s) INH BID No Start Date 07/11/2018 Inactive atorvastatin 40 mg tablet RxNorm: 741156 1 Tablet(s) PO QD No Start Date 12/18/2018 Inactive tramadol 50 mg tablet RxNorm: 036844 1 Tablet(s) PO TID as needed for pain (take alone with two extra strength tylenol) No Start Date 01/16/2019 Inactive Symbicort 160 mcg-4.5 mcg/actuation HFA aerosol inhaler RxNo rm: 0850170 2 Puff(s) INH BID No Start Date 08/12/2013 Inactive Vitamin D3 5,000 unit tablet RxNorm: 363442 1 Tablet(s) PO QD No St art Date 05/08/2019 Inactive albuterol sulfate 2.5 mg/3 mL (0.083 %) Neb Solution RxNorm: 563870 1 Unit Dose INH Q4H prn wheezing or shortness of breath No Start Date 01/29/2013 Inac tive Ranexa 500 mg tablet,extended release RxNorm: 856384 1 Tablet(s ) PO BID No Start Date 02/03/2018 Inactive Advair Diskus 500 mcg-50 mcg/dose powder for inhalation RxNo rm: 0333645 1 Puff(s) INH BID No Start Date 08/09/2016 Inactive clopidogrel 75 mg tablet RxNorm: 673781 1 Tablet(s) PO QD No Start Date 05/01/2018 Inactive metformin 1,000 mg Tab RxNorm: 754140 1 Tablet(s) PO BID No Start D ate 08/12/2013 Inactive Silenor 3 mg tablet RxNorm: 356358 1 Tablet(s) PO QHS No Start Date 0 04/04/2017 Inactive Medrol (Gui) 4 mg tablets in a dose pack RxNorm: 637556 Tablet(s) PO as directed No Start Date 01/19/2013 Inactive Requip 4 mg tablet RxNorm: 076398 1 Tablet(s) PO BID No Start Date Inactive clopidogrel 75 mg tablet RxNorm: 222357 1 Tablet(s) PO QD No Start Date 02/03/2018 Inactive Tradjenta 5 mg tablet RxNorm: 6655606 1 Tablet(s) PO QD No Start Da te 02/03/2018 Inactive ProAir HFA 90 mcg/Actuation Aerosol Inhaler RxNorm: 158207 2 Pu ff(s) INH PRN No Start Date 07/09/2012 Inactive Tessalon Perles 100 mg capsule RxNorm: 237034 1 Capsule (s) PO TID as needed for cough No Start Date 08/30/2014 Inactive ferrous sulfate 325 mg (65 mg iron) tablet RxNorm: 084647 1 Tab let(s) PO QD No Start Date 05/08/2019 Inactive pioglitazone 15 mg tablet RxNorm: 625069 1 Tablet(s) PO QD No Start Date 09/20/2014 Inactive Lexapro Oral RxNorm: Oral No Start Date 12/13/2009 Inactive Breo Ellipta 100 mcg-25 mcg/dose powder for inhalation RxNor m: 5348329 1 Puff(s) INH BID No Start Date 05/31/2015 Inactive Tylenol Extra Strength 500 mg tablet RxNorm: 464116 2 T ablet(s) PO QHS along with ropironole No Start Date 12/18/2018 Inactive tramadol 50 mg tablet RxNorm: 717062 1 Tablet(s) PO QID as need ed for pain No Start Date 12/24/2018 Inactive cyclobenzaprine 10 mg Tab RxNorm: 517864 Oral No Start Date 12/22 Inactive Levemir FlexTouch 100 unit/mL (3 mL) subcutaneous insulin pe n RxNorm: 627259 10 Unit(s) SQ QD No Start Date 03/08/2016 Inactive amlodipine 5 mg tablet RxNorm: 172035 1 Tablet(s) PO QD No Start Da te 08/09/2016 Inactive Novolog 100 unit/mL subcutaneous solution RxNorm: 856682 10 Uni t(s) SQ AC No Start Date 08/12/2017 Inactive Levemir FlexTouch 100 unit/mL (3 mL) subcutaneous insulin pe n RxNorm: 531015 25 Unit(s) SQ QPM No Start Date 08/06/2018 Inactive Farxiga 5 mg tablet RxNorm: 5609113 1 Tablet(s) PO QD No Start Date 0 10/05/2014 Inactive DuoNeb 0.5 mg-3 mg(2.5 mg base)/3 mL solution for nebulizati on RxNorm: 5761935 inhalation No Start Date 09/23/2014 Inactive Doxycycline 100 mg Cap RxNorm: 231230 1 Capsule(s) PO BID No Start Date 12/18/2010 Inactive Vitamin B12 1000mcg Tablet RxNorm: 1 Tablet(s) PO QD No Start Date 02/03/2018 Inactive Hydrocodone-Acetaminophen 7.5 mg-750 mg Tab RxNorm: 384186 1 Ta blet(s) PO Q6-8H No Start Date 12/22/2009 Inactive Xigduo XR 5 mg-1,000 mg tablet,extended release RxNorm: 1593 833 1 Tablet(s) PO QD No Start Date 05/31/2015 Inactive cyanocobalamin (vit B-12) 1,000 mcg/mL injection solution Rx Norm: 591959 1 injection weekly for 4 weeks 1 Milliliter(s) Inj No Start Date 05/08/2019 Inactive AndroGel 1.25 g/Actuation (1%) Transdermal Gel Pump RxNorm: 7180251 TD Apply 4pumps daily No Start Date 08/21/2011 Inactive Actoplus MET 15 mg-850 mg Tab RxNorm: 121432 1 Tablet(s) PO BID No Start Date 12/18/2010 Inactive Amaryl 2 mg tablet RxNorm: 637670 1 Tablet(s) PO BID No Start Date Inactive Levemir FlexTouch 100 unit/mL (3 mL) subcutaneous insulin pe n RxNorm: 676521 20 Unit(s) SQ QD No Start Date 06/12/2016 Inactive Symbicort 160 mcg-4.5 mcg/actuation HFA aerosol inhaler RxNo rm: [id number] 2 Puff(s) INH BID No Start Date 02/03/2018 Inactive Symbicort 160 mcg-4.5 mcg/Actuation Inhalation HFA Aer osol Inhaler RxNorm: 6958410 2 INH BID No Start Date 12/18/2010 Inactive Farxiga 5 mg tablet RxNorm: 4767568 1 Tablet(s) PO QD No Start Date 0 03/01/2015 Inactive magnesium oxide 400 mg (241.3 mg magnesium) tablet RxNorm: 1 56134 1 Tablet(s) PO QHS No Start Date 05/08/2019 Inactive Tradjenta 5 mg tablet RxNorm: 5020732 2 Tablet(s) PO QD No Start Da te 07/21/2015 Inactive Levemir FlexTouch U-100 Insulin 100 unit/mL (3 mL) sub cutaneous pen RxNorm: 163338 40 Unit(s) SQ QD No Start Date 08/06/2018 Inactive Sinemet CR 50 mg-200 mg tablet,extended release RxNorm: 8343 41 1 Tablet(s) PO QHS No Start Date 09/24/2017 Inactive metoprolol tartrate 25 mg tablet RxNorm: 111789 1/2 Tablet(s) P O BID No Start Date 02/03/2018 Inactive Requip 4 mg tablet RxNorm: 261425 1 Tablet(s) PO QHS No Start Date Inactive Ventolin HFA 90 mcg/actuation aerosol inhaler RxNorm: 283258 2 Puff(s) INH Q4H as needed No Start Date 04/22/2018 Inactive B12 5,000 mcg-100 mcg sublingual lozenge RxNorm: 258205 IM as d irected No Start Date 05/08/2019 Inactive ropinirole 1 mg tablet RxNorm: 435994 1 Tablet(s) PO QHS No Start D ate 08/06/2018 Inactive Percocet 5 mg-325 mg tablet RxNorm: 6967112 1 Tablet(s) PO Q4H as needed for pain (Dr Rizzo) No Start Date 10/22/2018 Inactive hydrocodone 5 mg-acetaminophen 325 mg tablet RxNorm: 903407 1 Tablet(s) PO TID as needed for pain for severe pain No Start Date 04/16/2014 Inactive scopolamine 1.5 mg 72 hr Transderm Patch RxNorm: 749345 Application TD Q72H for dizziness No Start Date 08/12/2013 Inactive ipratropium-albuterol 0.5 mg-3 mg(2.5 mg base)/3 mL ne bulization soln RxNorm: 9941954 1 Unit Dose INH Q4H No Start Date 01/16/2019 Inactive Medication Administered No Medication Administered data Immunizations Vaccine Codes Date Status Influenza CVX: 135 08/07/2019 Complete Pneumococcal CVX: 33 07/24/2017 Complete Influenza CVX: 135 06/13/2016 Complete Pneumococcal CVX: 133 06/13/2016 Complete Influenza CVX: 141 07/10/2012 Pneumovax Unknown 07/10/2012 Results Observation Observation Code Item Item Code Result Date S [facility] Location COMPLETE BLOOD COUNT [id number] WBC 5.5 10e9/L 06/17/20 19 Unknown COMPLETE BLOOD COUNT [id number] RBC 3.92 10e12/L 2018 Unknown COMPLETE BLOOD COUNT 9063456 HEMOGLOBIN 10.9 g/dL 06/17/20 19 Unknown COMPLETE BLOOD COUNT 3196431 HEMATOCRIT 34.8 % 06/17/20 19 Unknown COMPLETE BLOOD COUNT 2175347 MCV 88.8 fL 9 Unknown COMPLETE BLOOD COUNT 2208632 MCH 27.8 pg 9 Unknown COMPLETE BLOOD COUNT 3273327 MCHC 31.3 g/dL 9 Unknown COMPLETE BLOOD COUNT 2673696 PLATELET COUNT 239 10e9/L Unknown COMPLETE BLOOD COUNT 1889774 Mean Plt Volume 10.0 fL Unknown COMPLETE BLOOD COUNT 0416977 Neut Auto 68.0 % 9 Unknown COMPLETE BLOOD COUNT 9560868 Lymph Auto 14.8 % 06/17/20 19 Unknown COMPLETE BLOOD COUNT 1093693 [place] Auto 13.1 % 9 Unknown COMPLETE BLOOD COUNT 6035214 Eos Auto 3.6 % 9 Unknown COMPLETE BLOOD COUNT 8145486 RDW 14.7 % 9 Unknown COMPLETE BLOOD COUNT 8255201 Baso Auto 0.5 % 9 Unknown COMPLETE BLOOD COUNT 1046318 Neutrophil Abs 3.74 10e9/L Unknown COMPLETE BLOOD COUNT 1830908 Lymphocyte Abs 0.81 10e9/L Unknown COMPLETE BLOOD COUNT 2853414 Monocyte Abs 0.72 10e9/L 05/26 Unknown COMPLETE BLOOD COUNT 2836301 Eosinophil Abs 0.20 10e9/L Unknown COMPLETE BLOOD COUNT 3208587 RDW-SD 46.4 fL 9 Unknown COMPLETE BLOOD COUNT 6140408 Basophil Abs 0.03 10e9/L 05/26 Unknown IRON 23001 Iron 36 ug/dL 06/17/2019 Unknown VITAMIN B 12 94194 VITAMIN B12 540 pg/mL 06/17/2019 Unkn own GFR CALC 8150720 GFR Non Afr Amr 59 mL/min 06/17/2019 Unk nown GFR CALC 5073090 GFR Afr Amr >60 mL/min 06/17/2019 Unknow n ERYTHROCYTE SEDIMENTATION RATE 06399 Sed Rate 34 mm/hr 06/17/2019 Unknown THYROID STIMULATING HORMONE 42545 TSH 2.217 uIU/mL 06/17/2019 Unknown COMPREHENSIVE METABOLIC 54168 AST 12 U/L 2018 Unknown COMPREHENSIVE METABOLIC 41341 ALT 11 U/L 2018 Unknown COMPREHENSIVE METABOLIC 27323 BUN 17 mg/dL 2018 Unknown COMPREHENSIVE METABOLIC 59252 ALBUMIN 3.9 g/dL 2018 Unknown COMPREHENSIVE METABOLIC 99223 CHLORIDE 103 mmol/L 06/17 Unknown COMPREHENSIVE METABOLIC 53692 Bili Total 0.4 mg/dL 06/17 Unknown COMPREHENSIVE METABOLIC 29235 ALK PHOS 51 U/L 2018 Unknown COMPREHENSIVE METABOLIC 85774 SODIUM 140 mmol/L 06/17 Unknown COMPREHENSIVE METABOLIC 45316 CREATININE 1.20 mg/dL 05/26 Unknown COMPREHENSIVE METABOLIC 48586 CALCIUM 8.9 mg/dL 2018 Unknown COMPREHENSIVE METABOLIC 04121 POTASSIUM 4.5 mmol/L 06/17 Unknown COMPREHENSIVE METABOLIC 90097 Total Protein 6.1 g/dL Unknown COMPREHENSIVE METABOLIC 46163 Glucose 108 mg/dL 2018 Unknown COMPREHENSIVE METABOLIC 61269 Bicarbonate 27 mmol/L 05/26 Unknown COMPREHENSIVE METABOLIC 41083 AGAP 10 mmol/L 2018 Unknown FERRITIN 41383 FERRITIN 35.5 ng/mL 05/08/2019 Unknown VITAMIN D TOTAL (25 HYDROXY) 76078 Vitamin D 25 OH 26.0 ng/mL 05/08/2019 Unknown GLYCOSYLATED HEMOGLOBIN TEST 10416 Hgb A1c 49571-8 8.2 % 0 05/08/2019 Unknown MEAN GLUC 2036302 Calc Mean Gluc 189 mg/dL 05/08/2019 Unkn own GFR CALC 6138488 GFR Afr Amr >60 mL/min 05/08/2019 Unknow n GFR CALC 5319055 GFR Non Afr Amr >60 mL/min 05/08/2019 Un known VITAMIN B 12 26879 VITAMIN B12 197 pg/mL 05/08/2019 Unkn own IRON 97491 Iron 34 ug/dL 05/08/2019 Unknown COMPLETE BLOOD COUNT 5860495 WBC 6.9 10e9/L 05/08/20 19 Unknown COMPLETE BLOOD COUNT 0412798 RBC 3.95 10e12/L 2018 Unknown COMPLETE BLOOD COUNT 5146736 HEMOGLOBIN 11.1 g/dL 05/08/20 19 Unknown COMPLETE BLOOD COUNT 0359244 HEMATOCRIT 34.9 % 05/08/20 19 Unknown COMPLETE BLOOD COUNT 8594306 MCV 88.4 fL 9 Unknown COMPLETE BLOOD COUNT 8324975 MCH 28.1 pg 9 Unknown COMPLETE BLOOD COUNT 5489312 MCHC 31.8 g/dL 9 Unknown COMPLETE BLOOD COUNT 1827816 PLATELET COUNT 217 10e9/L Unknown COMPLETE BLOOD COUNT 0620709 Mean Plt Volume 9.6 fL Unknown COMPLETE BLOOD COUNT 6411429 Neut Auto 77.6 % 9 Unknown COMPLETE BLOOD COUNT 7424587 Lymph Auto 10.7 % 05/08/20 19 Unknown COMPLETE BLOOD COUNT 8574156 [place] Auto 10.4 % 9 Unknown COMPLETE BLOOD COUNT 2734944 RDW 14.7 % 9 Unknown COMPLETE BLOOD COUNT 7641112 Eos Auto 1.2 % 9 Unknown COMPLETE BLOOD COUNT 8828707 Baso Auto 0.1 % 9 Unknown COMPLETE BLOOD COUNT 6959858 Neutrophil Abs 5.35 10e9/L Unknown COMPLETE BLOOD COUNT 1874776 Lymphocyte Abs 0.74 10e9/L Unknown COMPLETE BLOOD COUNT 4449570 Monocyte Abs 0.72 10e9/L 04/24 Unknown COMPLETE BLOOD COUNT 9088698 Eosinophil Abs 0.08 10e9/L Unknown COMPLETE BLOOD COUNT 7587481 RDW-SD 46.6 fL 9 Unknown COMPLETE BLOOD COUNT 8110152 Basophil Abs 0.01 10e9/L 04/24 Unknown COMPREHENSIVE METABOLIC 70783 AST 13 U/L 2018 Unknown COMPREHENSIVE METABOLIC 17169 ALT 9 U/L 2018 Unknown COMPREHENSIVE METABOLIC 98744 BUN 18 mg/dL 2018 Unknown COMPREHENSIVE METABOLIC 65986 ALBUMIN 4.3 g/dL 2018 Unknown COMPREHENSIVE METABOLIC 14272 CHLORIDE 99 mmol/L 2018 Unknown COMPREHENSIVE METABOLIC 52527 Bili Total 0.4 mg/dL 05/08 Unknown COMPREHENSIVE METABOLIC 19921 ALK PHOS 48 U/L 2018 Unknown COMPREHENSIVE METABOLIC 41837 SODIUM 137 mmol/L 05/08 Unknown COMPREHENSIVE METABOLIC 35748 CREATININE 0.79 mg/dL 04/24 Unknown COMPREHENSIVE METABOLIC 96725 CALCIUM 9.5 mg/dL 2018 Unknown COMPREHENSIVE METABOLIC 98586 POTASSIUM 4.0 mmol/L 05/08 Unknown COMPREHENSIVE METABOLIC 16098 Total Protein 6.3 g/dL Unknown COMPREHENSIVE METABOLIC 18207 Glucose 232 mg/dL 2018 Unknown COMPREHENSIVE METABOLIC 20830 Bicarbonate 27 mmol/L 04/24 Unknown COMPREHENSIVE METABOLIC 75811 AGAP 11 mmol/L 2018 Unknown GLYCOSYLATED HEMOGLOBIN TEST 45539 Hgb A1c 75256-0 8.9 % 0 12/10/2018 Unknown MEAN GLUC 0624638 Calc Mean Gluc 209 mg/dL 12/10/2018 Unkn own LIPID GROUP 04099 Cholesterol 145 mg/dL 12/09/2018 Unkno wn LIPID GROUP 45490 Triglyceride 235 mg/dL 12/09/2018 Unkn own LIPID GROUP 95731 HDL CHOLESTEROL 40 mg/dL 12/09/2018 U nknown LIPID GROUP 46375 Chol/HDL Ratio 3.62 ratio 12/09/2018 U nknown LIPID GROUP 00455 NON-HDL Chol 105 mg/dL 12/09/2018 Unkn own LIPID GROUP 36233 LDL Cholesterol 58 mg/dL 12/09/2018 U nknown THYROID STIMULATING HORMONE 12448 TSH 1.071 uIU/mL 12/09/2018 Unknown GFR CALC 8383282 GFR Afr Amr >60 mL/min 12/09/2018 Unknow n GFR CALC 7104984 GFR Non Afr Amr >60 mL/min 12/09/2018 Un known COMPLETE BLOOD COUNT 7895703 WBC 7.6 10e9/L 12/10/19 19 Unknown COMPLETE BLOOD COUNT 1831659 RBC 3.97 10e12/L 2018 Unknown COMPLETE BLOOD COUNT 8922861 HEMOGLOBIN 11.4 g/dL 12/10/19 19 Unknown COMPLETE BLOOD COUNT 1021923 HEMATOCRIT 35.8 % 12/10/19 19 Unknown COMPLETE BLOOD COUNT 0779402 MCV 90.2 fL 9 Unknown COMPLETE BLOOD COUNT 9128364 MCH 28.7 pg 9 Unknown COMPLETE BLOOD COUNT 9965715 MCHC 31.8 g/dL 9 Unknown COMPLETE BLOOD COUNT 9573610 PLATELET COUNT 200 10e9/L Unknown COMPLETE BLOOD COUNT 8295475 Mean Plt Volume 10.1 fL Unknown COMPLETE BLOOD COUNT 3481777 Neut Auto 79.0 % 9 Unknown COMPLETE BLOOD COUNT 5627427 Lymph Auto 8.3 % 12/10/19 19 Unknown COMPLETE BLOOD COUNT 8218457 [place] Auto 10.8 % 9 Unknown COMPLETE BLOOD COUNT 8084323 Eos Auto 1.5 % 9 Unknown COMPLETE BLOOD COUNT 0332218 RDW 14.6 % 9 Unknown COMPLETE BLOOD COUNT 7142500 Baso Auto 0.4 % 9 Unknown COMPLETE BLOOD COUNT 2260015 Neutrophil Abs 6.00 10e9/L Unknown COMPLETE BLOOD COUNT 1416643 Lymphocyte Abs 0.63 10e9/L Unknown COMPLETE BLOOD COUNT 9058671 Monocyte Abs 0.82 10e9/L 11/22 Unknown COMPLETE BLOOD COUNT 5329575 Eosinophil Abs 0.11 10e9/L Unknown COMPLETE BLOOD COUNT 2049139 RDW-SD 46.9 fL 9 Unknown COMPLETE BLOOD COUNT 4439426 Basophil Abs 0.03 10e9/L 11/22 Unknown COMPREHENSIVE METABOLIC 17660 AST 11 U/L 2018 Unknown COMPREHENSIVE METABOLIC 73360 ALT 11 U/L 2018 Unknown COMPREHENSIVE METABOLIC 80402 BUN 21 mg/dL 2018 Unknown COMPREHENSIVE METABOLIC 04341 ALBUMIN 4.7 g/dL 2018 Unknown COMPREHENSIVE METABOLIC 53098 CHLORIDE 99 mmol/L 2018 Unknown COMPREHENSIVE METABOLIC 22857 Bili Total 0.4 mg/dL 12/09 Unknown COMPREHENSIVE METABOLIC 97784 ALK PHOS 73 U/L 2018 Unknown COMPREHENSIVE METABOLIC 79905 SODIUM 137 mmol/L 12/09 Unknown COMPREHENSIVE METABOLIC 74937 CREATININE 1.12 mg/dL 11/22 Unknown COMPREHENSIVE METABOLIC 81915 CALCIUM 9.4 mg/dL 2018 Unknown COMPREHENSIVE METABOLIC 18312 POTASSIUM 4.2 mmol/L 12/09 Unknown COMPREHENSIVE METABOLIC 91875 Total Protein 6.8 g/dL Unknown COMPREHENSIVE METABOLIC 41742 Glucose 194 mg/dL 2018 Unknown COMPREHENSIVE METABOLIC 52518 Bicarbonate 30 mmol/L 11/22 Unknown COMPREHENSIVE METABOLIC 27435 AGAP 8 mmol/L 2018 Unknown FREE T4 10652 T4 Free 0.86 ng/dL 12/09/2018 Unknown COMPLETE BLOOD COUNT 0077247 WBC 6.8 10e9/L 04/17/20 17 Unknown COMPLETE BLOOD COUNT 3628620 RBC 3.86 10e12/L 2016 Unknown COMPLETE BLOOD COUNT 0031735 HEMOGLOBIN 9.8 g/dL 04/17/20 17 Unknown COMPLETE BLOOD COUNT 3844646 HEMATOCRIT 31.1 % 04/17/20 17 Unknown COMPLETE BLOOD COUNT 1714549 MCV 80.6 fL 7 Unknown COMPLETE BLOOD COUNT 6219950 MCH 25.4 pg 7 Unknown COMPLETE BLOOD COUNT 0089837 MCHC 31.5 g/dL 7 Unknown COMPLETE BLOOD COUNT 1882215 PLATELET COUNT 247 10e9/L Unknown COMPLETE BLOOD COUNT 2502589 Mean Plt Volume 9.7 fL Unknown COMPLETE BLOOD COUNT 3931198 Neut Auto 74.1 % 7 Unknown COMPLETE BLOOD COUNT 0753843 Lymph Auto 12.0 % 04/17/20 17 Unknown COMPLETE BLOOD COUNT 7891846 [place] Auto 10.8 % 7 Unknown COMPLETE BLOOD COUNT 6974008 RDW 15.9 % 7 Unknown COMPLETE BLOOD COUNT 8779051 Eos Auto 2.5 % 7 Unknown COMPLETE BLOOD COUNT 8480309 Baso Auto 0.6 % 7 Unknown COMPLETE BLOOD COUNT 0213990 Neutrophil Abs 5.04 10e9/L Unknown COMPLETE BLOOD COUNT 0879599 Lymphocyte Abs 0.82 10e9/L Unknown COMPLETE BLOOD COUNT 3407817 Monocyte Abs 0.73 10e9/L 03/25 Unknown COMPLETE BLOOD COUNT 4321537 Eosinophil Abs 0.17 10e9/L Unknown COMPLETE BLOOD COUNT 8458592 RDW-SD 44.4 fL 7 Unknown COMPLETE BLOOD COUNT 6351047 Basophil Abs 0.04 10e9/L 03/25 Unknown MEAN GLUC 5165941 Calc Mean Gluc 223 mg/dL 04/17/2017 Unkn own GFR CALC 2514163 GFR Non Afr Amr >60 mL/min 04/17/2017 Un known GFR CALC 5907658 GFR Afr Amr >60 mL/min 04/17/2017 Unknow n GLYCOSYLATED HEMOGLOBIN TEST 39417 Hgb A1c 84418-5 9.4 % 0 04/17/2017 Unknown IRON 73847 Iron 37 ug/dL 04/17/2017 Unknown VITAMIN B 12 69175 VITAMIN B12 280 pg/mL 04/17/2017 Unkn own THYROID STIMULATING HORMONE 20985 TSH 2.481 uIU/mL 04/17/2017 Unknown COMPREHENSIVE METABOLIC 20846 AST 13 U/L 2016 Unknown COMPREHENSIVE METABOLIC 18222 ALT 12 U/L 2016 Unknown COMPREHENSIVE METABOLIC 95450 BUN 18 mg/dL 2016 Unknown COMPREHENSIVE METABOLIC 90591 ALBUMIN 4.7 g/dL 2016 Unknown COMPREHENSIVE METABOLIC 97376 CHLORIDE 103 mmol/L 04/17 Unknown COMPREHENSIVE METABOLIC 46893 Bili Total 0.4 mg/dL 04/17 Unknown COMPREHENSIVE METABOLIC 45022 ALK PHOS 49 U/L 2016 Unknown COMPREHENSIVE METABOLIC 85788 SODIUM 140 mmol/L 04/17 Unknown COMPREHENSIVE METABOLIC 18276 CREATININE 1.14 mg/dL 03/25 Unknown COMPREHENSIVE METABOLIC 17606 CALCIUM 9.4 mg/dL 2016 Unknown COMPREHENSIVE METABOLIC 68911 POTASSIUM 4.4 mmol/L 04/17 Unknown COMPREHENSIVE METABOLIC 36612 Total Protein 6.7 g/dL Unknown COMPREHENSIVE METABOLIC 98973 Glucose 266 mg/dL 2016 Unknown COMPREHENSIVE METABOLIC 07359 Bicarbonate 25 mmol/L 03/25 Unknown COMPREHENSIVE METABOLIC 24141 AGAP 12 mmol/L 2016 Unknown FERRITIN 21032 FERRITIN 10.0 ng/mL 04/17/2017 Unknown COMPLETE BLOOD COUNT 5514051 WBC 6.8 10e9/L 12/22/19 17 Unknown COMPLETE BLOOD COUNT 6759109 RBC 3.70 10e12/L 2016 Unknown COMPLETE BLOOD COUNT 7172066 HEMOGLOBIN 8.0 g/dL 12/22/19 17 Unknown COMPLETE BLOOD COUNT 6652193 HEMATOCRIT 26.7 % 12/22/19 17 Unknown COMPLETE BLOOD COUNT 9596905 MCV 72.2 fL 7 Unknown COMPLETE BLOOD COUNT 6578974 MCH 21.6 pg 7 Unknown COMPLETE BLOOD COUNT 9834790 MCHC 30.0 g/dL 7 Unknown COMPLETE BLOOD COUNT 0586056 PLATELET COUNT 290 10e9/L Unknown COMPLETE BLOOD COUNT 3119980 Mean Plt Volume 9.3 fL Unknown COMPLETE BLOOD COUNT 6409595 Neut Auto 80.2 % 7 Unknown COMPLETE BLOOD COUNT 2916355 Lymph Auto 9.8 % 12/22/19 17 Unknown COMPLETE BLOOD COUNT 2093924 [place] Auto 8.1 % 7 Unknown COMPLETE BLOOD COUNT 9944407 RDW 17.4 % 7 Unknown COMPLETE BLOOD COUNT 9928454 Eos Auto 1.5 % 7 Unknown COMPLETE BLOOD COUNT 0178985 Baso Auto 0.4 % 7 Unknown COMPLETE BLOOD COUNT 6177021 Neutrophil Abs 5.45 10e9/L Unknown COMPLETE BLOOD COUNT 3226195 Lymphocyte Abs 0.67 10e9/L Unknown COMPLETE BLOOD COUNT 7972407 Monocyte Abs 0.55 10e9/L 11/24 Unknown COMPLETE BLOOD COUNT 7036004 Eosinophil Abs 0.10 10e9/L Unknown COMPLETE BLOOD COUNT 4755982 RDW-SD 44.1 fL 7 Unknown COMPLETE BLOOD COUNT 6549951 Basophil Abs 0.03 10e9/L 11/24 Unknown COMPLETE BLOOD COUNT 6405949 WBC 7.6 10e9/L 12/13/19 17 Unknown COMPLETE BLOOD COUNT 7626937 RBC 3.71 10e12/L 2016 Unknown COMPLETE BLOOD COUNT 4360286 HEMOGLOBIN 8.0 g/dL 12/13/19 17 Unknown COMPLETE BLOOD COUNT 4040675 HEMATOCRIT 27.3 % 12/13/19 17 Unknown COMPLETE BLOOD COUNT 7643691 MCV 73.6 fL 7 Unknown COMPLETE BLOOD COUNT 0269500 MCH 21.6 pg 7 Unknown COMPLETE BLOOD COUNT 1657629 MCHC 29.3 g/dL 7 Unknown COMPLETE BLOOD COUNT 2015600 PLATELET COUNT 330 10e9/L Unknown COMPLETE BLOOD COUNT 3436413 Mean Plt Volume 9.7 fL Unknown COMPLETE BLOOD COUNT 4403799 Neut Auto 73.2 % 7 Unknown COMPLETE BLOOD COUNT 7372437 Lymph Auto 14.5 % 12/13/19 17 Unknown COMPLETE BLOOD COUNT 7237449 [place] Auto 10.5 % 7 Unknown COMPLETE BLOOD COUNT 7752451 RDW 17.3 % 7 Unknown COMPLETE BLOOD COUNT 1227019 Eos Auto 1.3 % 7 Unknown COMPLETE BLOOD COUNT 6085143 Baso Auto 0.5 % 7 Unknown COMPLETE BLOOD COUNT 3050583 Neutrophil Abs 5.56 10e9/L Unknown COMPLETE BLOOD COUNT 4738461 Lymphocyte Abs 1.10 10e9/L Unknown COMPLETE BLOOD COUNT 2110825 Monocyte Abs 0.80 10e9/L 11/23 Unknown COMPLETE BLOOD COUNT 7228798 Eosinophil Abs 0.10 10e9/L Unknown COMPLETE BLOOD COUNT 7028388 RDW-SD 45.2 fL 7 Unknown COMPLETE BLOOD COUNT 0641188 Basophil Abs 0.04 10e9/L 11/23 Unknown IRON 68476 Iron 69 ug/dL 03/09/2016 Unknown VITAMIN B 12 92799 VITAMIN B12 311 pg/mL 03/09/2016 Unkn own MEAN GLUC 2270198 Mean Glucose 260 mg/dL 03/07/2016 Unknow n GLYCOSYLATED HEMOGLOBIN TEST 23302 Hgb A1c 94315-5 10.7 % 0 03/07/2016 Unknown COMPREHENSIVE METABOLIC 94827 AST 14 U/L 2015 Unknown COMPREHENSIVE METABOLIC 56576 ALT 21 U/L 2015 Unknown COMPREHENSIVE METABOLIC 23929 BUN 27 mg/dL 2015 Unknown COMPREHENSIVE METABOLIC 94206 ALBUMIN 4.5 g/dL 2015 Unknown COMPREHENSIVE METABOLIC 59667 CHLORIDE 101 mmol/L 03/06 Unknown COMPREHENSIVE METABOLIC 22813 Bili Total 0.4 mg/dL 03/06 Unknown COMPREHENSIVE METABOLIC 46299 ALK PHOS 49 U/L 2015 Unknown COMPREHENSIVE METABOLIC 95859 SODIUM 136 mmol/L 03/06 Unknown COMPREHENSIVE METABOLIC 64334 CREATININE 1.16 mg/dL 02/22 Unknown COMPREHENSIVE METABOLIC 85171 CALCIUM 9.9 mg/dL 2015 Unknown COMPREHENSIVE METABOLIC 40152 POTASSIUM 4.5 mmol/L 03/06 Unknown COMPREHENSIVE METABOLIC 94582 Total Protein 6.7 g/dL Unknown COMPREHENSIVE METABOLIC 76662 Glucose 245 mg/dL 2015 Unknown COMPREHENSIVE METABOLIC 43231 Bicarbonate 24 mmol/L 02/22 Unknown COMPREHENSIVE METABOLIC 24022 AGAP 11 mmol/L 2015 Unknown THYROID STIMULATING HORMONE 37248 TSH 0.775 uIU/mL 03/06/2016 Unknown TESTOSTERONE TOTAL 09706 Testos Total 96 ng/dL 03/06/20 16 Unknown LIPID GROUP 48917 Cholesterol 146 mg/dL 03/06/2016 Unkno wn LIPID GROUP 33192 Triglyceride 249 mg/dL 03/06/2016 Unkn own LIPID GROUP 12264 HDL CHOLESTEROL 46 mg/dL 03/06/2016 U nknown LIPID GROUP 82703 Chol/HDL Ratio 3.17 ratio 03/06/2016 U nknown LIPID GROUP 75363 NON-HDL Chol 100 mg/dL 03/06/2016 Unkn own LIPID GROUP 99143 LDL Cholesterol 50 mg/dL 03/06/2016 U nknown COMPLETE BLOOD COUNT 0469712 WBC 11.2 10e9/L 016 Unknown COMPLETE BLOOD COUNT 8475817 RBC 3.94 10e12/L 2015 Unknown COMPLETE BLOOD COUNT 4562798 HEMOGLOBIN 11.4 g/dL 03/06/20 16 Unknown COMPLETE BLOOD COUNT 7731644 HEMATOCRIT 33.7 % 03/06/20 16 Unknown COMPLETE BLOOD COUNT 6267467 MCV 85.5 fL 6 Unknown COMPLETE BLOOD COUNT 6358914 MCH 28.9 pg 6 Unknown COMPLETE BLOOD COUNT 2347059 MCHC 33.8 g/dL 6 Unknown COMPLETE BLOOD COUNT 5799622 PLATELET COUNT 204 10e9/L Unknown COMPLETE BLOOD COUNT 9716322 Mean Plt Volume 10.1 fL Unknown COMPLETE BLOOD COUNT 4624685 Neut Auto 85.9 % 6 Unknown COMPLETE BLOOD COUNT 0422967 Lymph Auto 6.8 % 03/06/20 16 Unknown COMPLETE BLOOD COUNT 0376723 [place] Auto 7.0 % 6 Unknown COMPLETE BLOOD COUNT 5902931 RDW 13.7 % 6 Unknown COMPLETE BLOOD COUNT 6904542 Eos Auto 0.1 % 6 Unknown COMPLETE BLOOD COUNT 8434501 Baso Auto 0.2 % 6 Unknown COMPLETE BLOOD COUNT 8552055 Neutrophil Abs 9.62 10e9/L Unknown COMPLETE BLOOD COUNT 3713741 Lymphoctye Abs 0.76 10e9/L Unknown COMPLETE BLOOD COUNT 1687717 Monocyte Abs 0.78 10e9/L 02/22 Unknown COMPLETE BLOOD COUNT 8210680 Eosinophil Abs 0.01 10e9/L Unknown COMPLETE BLOOD COUNT 4901288 RDW-SD 41.9 fL 6 Unknown COMPLETE BLOOD COUNT 5550447 Basophil Abs 0.02 10e9/L 02/22 Unknown FREE T4 67706 T4 Free 0.89 ng/dL 03/06/2016 Unknown GFR CALC 2915825 GFR Afr Amr >60 mL/min 03/06/2016 Unknow n GFR CALC 5372649 GFR Non Afr Amr >60 mL/min 03/06/2016 Un known PSA EQUIMOLAR JONATAN 20385 PSA Total 0.78 ng/mL 6 Unknown FREE T4 95904 FREE T4 0.90 NG/DL 07/01/2015 Unknown LIPID GROUP 09623 HDL TEST 44 MG/DL 07/01/2015 Unknown LIPID GROUP 08735 TRIG 303 MG/DL 07/01/2015 Unknown LIPID GROUP 13578 TEST LDL 56 MG/DL 07/01/2015 Unknown LIPID GROUP 40510 CHOL 161 MG/DL 07/01/2015 Unknown LIPID GROUP 65667 RCHOL/HDL 3.66 RATIO 07/01/2015 Unknow n LIPID GROUP 73251 NON-HDL CH 117 MG/DL 07/01/2015 Unknow n THYROID STIMULATING HORMONE 71680 TSH 1.783 uIU/ML 07/01/2015 Unknown COMPLETE BLOOD COUNT 1334155 WBC 6.6 10e9/L 07/01/20 15 Unknown COMPLETE BLOOD COUNT 0121343 RBC 4.18 10e12/L 2014 Unknown COMPLETE BLOOD COUNT 5150633 HGB 12.2 g/dL 5 Unknown COMPLETE BLOOD COUNT 3953826 HCT DET 37.0 % 5 Unknown COMPLETE BLOOD COUNT 2779558 MCV 88.5 fL 5 Unknown COMPLETE BLOOD COUNT 8533907 MCH 29.2 pg 5 Unknown COMPLETE BLOOD COUNT 1918914 MCHC 33.0 g/dL 5 Unknown COMPLETE BLOOD COUNT 2195912 PLT 224 10e9/L 07/01/20 15 Unknown COMPLETE BLOOD COUNT 8584079 MPV 10.4 fL 5 Unknown COMPLETE BLOOD COUNT 4585397 SUSIE % 72.6 % 5 Unknown COMPLETE BLOOD COUNT 3382121 LY % 14.1 % 5 Unknown COMPLETE BLOOD COUNT 0506285 MON % 10.2 % 5 Unknown COMPLETE BLOOD COUNT 6162522 EOS % 2.6 % 5 Unknown COMPLETE BLOOD COUNT 6031393 BASO % 0.5 % 5 Unknown COMPLETE BLOOD COUNT 5817906 RDW 14.1 % 5 Unknown COMPLETE BLOOD COUNT 8805946 ABS SUSIE 4.79 10e9/L 015 Unknown COMPLETE BLOOD COUNT 4257615 ABS LYMPH 0.93 10e9/L 015 Unknown COMPLETE BLOOD COUNT 2100571 ABS MONO 0.67 10e9/L 015 Unknown COMPLETE BLOOD COUNT 4701979 ABS EOS 0.17 10e9/L 015 Unknown COMPLETE BLOOD COUNT 9884313 ABS BASO 0.03 10e9/L 015 Unknown COMPLETE BLOOD COUNT 4352808 RDW-SD 43.9 fL 5 Unknown PSA EQUIMOLAR JONATAN 63447 PSA EQ 0.73 NG/ML 5 Unknown COMPREHENSIVE METABOLIC 92687 AST 24 U/L 2014 Unknown COMPREHENSIVE METABOLIC 58801 ALT 26 IU/L 2014 Unknown COMPREHENSIVE METABOLIC 41347 BUN 26 MG/DL 2014 Unknown COMPREHENSIVE METABOLIC 11063 ALBUMIN 4.6 GM/DL 2014 Unknown COMPREHENSIVE METABOLIC 50743 CHLORIDE 102 MMOL/L 06/01 Unknown COMPREHENSIVE METABOLIC 96539 BILI TOT 0.5 MG/DL 2014 Unknown COMPREHENSIVE METABOLIC 49554 ALK PHOS 56 U/L 2014 Unknown COMPREHENSIVE METABOLIC 18353 SODIUM 136 MMOL/L 06/01 Unknown COMPREHENSIVE METABOLIC 28811 CREATININE 1.16 MG/DL 04/2015 Unknown COMPREHENSIVE METABOLIC 42569 CALCIUM 9.8 MG/DL 2014 Unknown COMPREHENSIVE METABOLIC 08189 POTASSIUM 4.6 MMOL/L 06/01 Unknown COMPREHENSIVE METABOLIC 00816 PROT TOT 7.4 GM/DL 2014 Unknown COMPREHENSIVE METABOLIC 05473 Glucose 223 MG/DL 2014 Unknown COMPREHENSIVE METABOLIC 61894 BICARB 27 MMOL/L 2014 Unknown COMPREHENSIVE METABOLIC 50425 ANION GAP 7 MEQ/L 2014 Unknown GFR CALC 7850334 GFR AA >60 ML/MIN 06/01/2015 Unknown GFR CALC 3141590 GFR NON-AA >60 ML/MIN 06/01/2015 Unknown GLYCOSYLATED HEMOGLOBIN TEST 12223 A1C HPLC 03954-4 8.9 % 0 06/01/2015 Unknown GFR CALC 8220116 GFR AA >60 ML/MIN 02/25/2015 Unknown GFR CALC 2770333 GFR NON-AA >60 ML/MIN 02/25/2015 Unknown COMPREHENSIVE METABOLIC 15848 AST 24 U/L 2014 Unknown COMPREHENSIVE METABOLIC 24852 ALT 25 IU/L 2014 Unknown COMPREHENSIVE METABOLIC 08449 BUN 14 MG/DL 2014 Unknown COMPREHENSIVE METABOLIC 87516 ALBUMIN 4.5 GM/DL 2014 Unknown COMPREHENSIVE METABOLIC 23989 CHLORIDE 99 MMOL/L 2014 Unknown COMPREHENSIVE METABOLIC 75983 BILI TOT 0.5 MG/DL 2014 Unknown COMPREHENSIVE METABOLIC 53277 ALK PHOS 48 U/L 2014 Unknown COMPREHENSIVE METABOLIC 85598 SODIUM 136 MMOL/L 02/25 Unknown COMPREHENSIVE METABOLIC 43264 CREATININE 0.97 MG/DL 12/2014 Unknown COMPREHENSIVE METABOLIC 73955 CALCIUM 9.9 MG/DL 2014 Unknown COMPREHENSIVE METABOLIC 11685 POTASSIUM 4.4 MMOL/L 02/25 Unknown COMPREHENSIVE METABOLIC 92748 PROT TOT 7.1 GM/DL 2014 Unknown COMPREHENSIVE METABOLIC 89832 Glucose 171 MG/DL 2014 Unknown COMPREHENSIVE METABOLIC 09932 BICARB 25 MMOL/L 2014 Unknown COMPREHENSIVE METABOLIC 11719 ANION GAP 12 MEQ/L 2014 Unknown PROTEIN/CREAT URINE WITH RATIO 18789|69104 PROT R U 19 MG/D L 08/27/2014 Unknown PROTEIN/CREAT URINE WITH RATIO 23580|17703 CREAT R U 111 MG/ DL 08/27/2014 Unknown PROTEIN/CREAT URINE WITH RATIO 29415|33533 XRATIO P/C 171 MG /G 08/27/2014 Unknown MICROALBUMIN URINE RANDOM 20842 MICRL MG/L 34.7 MG/L 12/2013 Unknown MICROALBUMIN URINE RANDOM 62868 XM.ALB/CRE 32.7 MG/GCR 1 10/28/2013 Unknown MICROALBUMIN URINE RANDOM 10138 CREAT MG/D 106 MG/DL 12/2013 Unknown MICROALBUMIN URINE RANDOM 63990 CRE/100 1.06 G/L 12/2013 Unknown COMPLETE BLOOD COUNT [id number] WBC 7.1 10e9/L 08/05/20 14 Unknown COMPLETE BLOOD COUNT [id number] RBC 4.35 10e12/L 2013 Unknown COMPLETE BLOOD COUNT [id number] HGB 12.9 g/dL 4 Unknown COMPLETE BLOOD COUNT [id number] HCT DET 39.4 % 4 Unknown COMPLETE BLOOD COUNT 9410005 MCV 90.6 fL 4 Unknown COMPLETE BLOOD COUNT [id number] MCH 29.7 pg 4 Unknown COMPLETE BLOOD COUNT [id number] MCHC 32.7 g/dL 4 Unknown COMPLETE BLOOD COUNT [id number] PLT 240 10e9/L 08/05/20 14 Unknown COMPLETE BLOOD COUNT [id number] MPV 10.3 fL 4 Unknown COMPLETE BLOOD COUNT [id number] SUSIE % 70.0 % 4 Unknown COMPLETE BLOOD COUNT [id number] LY % 16.4 % 4 Unknown COMPLETE BLOOD COUNT [id number] MON % 9.2 % 4 Unknown COMPLETE BLOOD COUNT 3560000 EOS % 3.8 % 4 Unknown COMPLETE BLOOD COUNT [id number] BASO % 0.6 % 4 Unknown COMPLETE BLOOD COUNT [id number] RDW 13.4 % 4 Unknown COMPLETE BLOOD COUNT [id number] ABS SUSIE 4.97 10e9/L 014 Unknown COMPLETE BLOOD COUNT [id number] ABS LYMPH 1.16 10e9/L 014 Unknown COMPLETE BLOOD COUNT [id number] ABS MONO 0.65 10e9/L 014 Unknown COMPLETE BLOOD COUNT [id number] ABS EOS 0.27 10e9/L 014 Unknown COMPLETE BLOOD COUNT [id number] ABS BASO 0.04 10e9/L 014 Unknown COMPLETE BLOOD COUNT [id number] RDW-SD 43.3 fL 4 Unknown FREE T4 60610 FREE T4 1.02 NG/DL 08/05/2014 Unknown GFR CALC 9212799 GFR AA >60 ML/MIN 08/05/2014 Unknown GFR CALC 8726018 GFR NON-AA >60 ML/MIN 08/05/2014 Unknown GLYCOSYLATED HEMOGLOBIN TEST 83458 A1C HPLC 84962-7 7.7 % 1 10/05/2013 Unknown COMPREHENSIVE METABOLIC 12716 AST 19 U/L 2013 Unknown COMPREHENSIVE METABOLIC 54673 ALT 21 IU/L 2013 Unknown COMPREHENSIVE METABOLIC 73400 BUN 25 MG/DL 2013 Unknown COMPREHENSIVE METABOLIC 26426 ALBUMIN 4.6 GM/DL 2013 Unknown COMPREHENSIVE METABOLIC 24137 CHLORIDE 103 MMOL/L 08/05 Unknown COMPREHENSIVE METABOLIC 40508 BILI TOT 0.4 MG/DL 2013 Unknown COMPREHENSIVE METABOLIC 50223 ALK PHOS 45 U/L 2013 Unknown COMPREHENSIVE METABOLIC 53195 SODIUM 138 MMOL/L 08/05 Unknown COMPREHENSIVE METABOLIC 47198 CREATININE 1.01 MG/DL 07/25 Unknown COMPREHENSIVE METABOLIC 89423 CALCIUM 9.8 MG/DL 2013 Unknown COMPREHENSIVE METABOLIC 27852 POTASSIUM 4.7 MMOL/L 08/05 Unknown COMPREHENSIVE METABOLIC 32776 PROT TOT 7.0 GM/DL 2013 Unknown COMPREHENSIVE METABOLIC 97355 Glucose 145 MG/DL 2013 Unknown COMPREHENSIVE METABOLIC 13299 BICARB 27 MMOL/L 2013 Unknown COMPREHENSIVE METABOLIC 46467 ANION GAP 8 MEQ/L 2013 Unknown THYROID STIMULATING HORMONE 89722 TSH 1.922 uIU/ML 08/05/2014 Unknown LIPID GROUP 07167 HDL TEST 47 MG/DL 08/05/2014 Unknown LIPID GROUP 75562 TRIG 224 MG/DL 08/05/2014 Unknown LIPID GROUP 96197 TEST LDL 125 MG/DL 08/05/2014 Unknown LIPID GROUP 18583 CHOL 217 MG/DL 08/05/2014 Unknown LIPID GROUP 01991 RCHOL/HDL 4.62 RATIO 08/05/2014 Unknow n LIPID GROUP 06040 NON-HDL CH 170 MG/DL 08/05/2014 Unknow n MYCOPLASMA ANTIBODY, IFA [id number] MYCO G IFA 1:256 03/24 Unknown MYCOPLASMA ANTIBODY, IFA [id number] MYCO M IFA <1:10 03/24 Unknown MYCOPLASMA ANTIBODY, IFA [id number] MYCO INTER SEE BELO 03/24 Unknown COMPLETE BLOOD COUNT [id number] WBC 8.3 10e9/L 04/09/20 13 Unknown COMPLETE BLOOD COUNT [id number] RBC 4.61 10e12/L 2012 Unknown COMPLETE BLOOD COUNT [id number] HGB 13.9 g/dL 3 Unknown COMPLETE BLOOD COUNT [id number] HCT DET 41.2 % 3 Unknown COMPLETE BLOOD COUNT [id number] MCV 89.4 fL 3 Unknown COMPLETE BLOOD COUNT [id number] MCH 30.2 pg 3 Unknown COMPLETE BLOOD COUNT [id number] MCHC 33.7 g/dL 3 Unknown COMPLETE BLOOD COUNT [id number] PLT 249 10e9/L 04/09/20 13 Unknown COMPLETE BLOOD COUNT [id number] MPV 9.8 fL 3 Unknown COMPLETE BLOOD COUNT [id number] SUSIE % 65.9 % 3 Unknown COMPLETE BLOOD COUNT [id number] LY % 19.8 % 3 Unknown COMPLETE BLOOD COUNT [id number] MON % 10.8 % 3 Unknown COMPLETE BLOOD COUNT [id number] EOS % 3.0 % 3 Unknown COMPLETE BLOOD COUNT [id number] BASO % 0.5 % 3 Unknown COMPLETE BLOOD COUNT [id number] RDW 14.0 % 3 Unknown COMPLETE BLOOD COUNT [id number] ABS SUSIE 5.47 10e9/L 013 Unknown COMPLETE BLOOD COUNT [id number] ABS LYMPH 1.64 10e9/L 013 Unknown COMPLETE BLOOD COUNT [id number] ABS MONO 0.90 10e9/L 013 Unknown COMPLETE BLOOD COUNT [id number] ABS EOS 0.25 10e9/L 013 Unknown COMPLETE BLOOD COUNT [id number] ABS BASO 0.04 10e9/L 013 Unknown COMPLETE BLOOD COUNT [id number] RDW-SD 45.0 fL 3 Unknown URIC ACID 37797 URIC ACID 5.3 MG/DL 02/12/2013 Unknown FREE T4 69960 FREE T4 1.09 NG/DL 02/11/2013 Unknown COMPLETE BLOOD COUNT [id number] WBC 6.3 10e9/L 02/12/20 13 Unknown COMPLETE BLOOD COUNT [id number] RBC 4.29 10e12/L 2012 Unknown COMPLETE BLOOD COUNT 8273589 HGB 13.1 g/dL 3 Unknown COMPLETE BLOOD COUNT [id number] HCT DET 39.7 % 3 Unknown COMPLETE BLOOD COUNT [id number] MCV 92.5 fL 3 Unknown COMPLETE BLOOD COUNT [id number] MCH 30.5 pg 3 Unknown COMPLETE BLOOD COUNT [id number] MCHC 33.0 g/dL 3 Unknown COMPLETE BLOOD COUNT [id number] PLT 247 10e9/L 02/12/20 13 Unknown COMPLETE BLOOD COUNT 7893710 MPV 10.0 fL 3 Unknown COMPLETE BLOOD COUNT 9459656 SUSIE % 73.4 % 3 Unknown COMPLETE BLOOD COUNT 3164685 LY % 13.5 % 3 Unknown COMPLETE BLOOD COUNT [id number] MON % 9.4 % 3 Unknown COMPLETE BLOOD COUNT [id number] EOS % 2.9 % 3 Unknown COMPLETE BLOOD COUNT [id number] BASO % 0.8 % 3 Unknown COMPLETE BLOOD COUNT [id number] RDW 13.8 % 3 Unknown COMPLETE BLOOD COUNT [id number] ABS SUSIE 4.62 10e9/L 013 Unknown COMPLETE BLOOD COUNT [id number] ABS LYMPH 0.85 10e9/L 013 Unknown COMPLETE BLOOD COUNT [id number] ABS MONO 0.59 10e9/L 013 Unknown COMPLETE BLOOD COUNT [id number] ABS EOS 0.18 10e9/L 013 Unknown COMPLETE BLOOD COUNT [id number] ABS BASO 0.05 10e9/L 013 Unknown COMPLETE BLOOD COUNT [id number] RDW-SD 45.7 fL 3 Unknown HEMOGLOBIN A1C (GLYCOSYLATED) 2369404 A1C HPLC 75215-0 7.5 % 02/11/2013 Unknown THYROID STIMULATING HORMONE 17500 TSH 1.466 uIU/ML 02/11/2013 Unknown VITAMIN B 12 FOLIC ACID 50958|49217 VIT B 12 625 PG/ML 01/23 Unknown VITAMIN B 12 FOLIC ACID 80568|77328 FOLIC ACID 15.6 NG/ML Unknown COMPREHENSIVE METABOLIC 62640 AST 18 U/L 2012 Unknown COMPREHENSIVE METABOLIC 56541 ALT 21 IU/L 2012 Unknown COMPREHENSIVE METABOLIC 81686 BUN 25 MG/DL 2012 Unknown COMPREHENSIVE METABOLIC 76667 ALBUMIN 4.6 GM/DL 2012 Unknown COMPREHENSIVE METABOLIC 63526 CHLORIDE 103 MMOL/L 02/11 Unknown COMPREHENSIVE METABOLIC 28586 BILI TOT 0.3 MG/DL 2012 Unknown COMPREHENSIVE METABOLIC 63968 ALK PHOS 53 U/L 2012 Unknown COMPREHENSIVE METABOLIC 55576 SODIUM 136 MMOL/L 02/11 Unknown COMPREHENSIVE METABOLIC 47364 CREATININE 1.16 MG/DL 01/23 Unknown COMPREHENSIVE METABOLIC 77648 CALCIUM 10.0 MG/DL 02/11 Unknown COMPREHENSIVE METABOLIC 34934 POTASSIUM 4.9 MMOL/L 02/11 Unknown COMPREHENSIVE METABOLIC 42081 PROT TOT 7.0 GM/DL 2012 Unknown COMPREHENSIVE METABOLIC 04414 Glucose 192 MG/DL 2012 Unknown COMPREHENSIVE METABOLIC 44066 BICARB 26 MMOL/L 2012 Unknown COMPREHENSIVE METABOLIC 33753 ANION GAP 7 MEQ/L 2012 Unknown GFR CALC 1665672 GFR AA >60 ML/MIN 02/11/2013 Unknown GFR CALC 4050878 GFR NON-AA >60 ML/MIN 02/11/2013 Unknown C-REACTIVE PROTEIN (CRP) QUANT 65218 CRP 2.7 MG/DL 02/11/2013 Unknown GFR CALC 3006736 GFR AA >60 ML/MIN 09/19/2012 Unknown GFR CALC 9212561 GFR NON-AA >60 ML/MIN 09/19/2012 Unknown HEMOGLOBIN A1C (GLYCOSYLATED) 3990266 A1C HPLC 80469-4 7.2 % 09/19/2012 Unknown COMPREHENSIVE METABOLIC 87478 AST 13 U/L 2011 Unknown COMPREHENSIVE METABOLIC 12595 ALT 17 IU/L 2011 Unknown COMPREHENSIVE METABOLIC 87057 BUN 25 MG/DL 2011 Unknown COMPREHENSIVE METABOLIC 61686 ALBUMIN 4.5 GM/DL 2011 Unknown COMPREHENSIVE METABOLIC 99122 CHLORIDE 104 MMOL/L 09/19 Unknown COMPREHENSIVE METABOLIC 16365 BILI TOT 0.3 MG/DL 2011 Unknown COMPREHENSIVE METABOLIC 05100 ALK PHOS 43 U/L 2011 Unknown COMPREHENSIVE METABOLIC 58144 SODIUM 139 MMOL/L 09/19 Unknown COMPREHENSIVE METABOLIC 93081 CREATININE 1.10 MG/DL 08/25 Unknown COMPREHENSIVE METABOLIC 63718 CALCIUM 9.8 MG/DL 2011 Unknown COMPREHENSIVE METABOLIC 94906 POTASSIUM 4.8 MMOL/L 09/19 Unknown COMPREHENSIVE METABOLIC 35369 PROT TOT 6.5 GM/DL 2011 Unknown COMPREHENSIVE METABOLIC 85347 Glucose 148 MG/DL 2011 Unknown COMPREHENSIVE METABOLIC 24634 BICARB 25 MMOL/L 2011 Unknown COMPREHENSIVE METABOLIC 15750 ANION GAP 10 MEQ/L 2011 Unknown LIPID GROUP 41498 HDL TEST 44 MG/DL 09/19/2012 Unknown LIPID GROUP 24126 TRIG 318 MG/DL 09/19/2012 Unknown LIPID GROUP 77345 TEST LDL 100 MG/DL 09/19/2012 Unknown LIPID GROUP 10836 CHOL 208 MG/DL 09/19/2012 Unknown LIPID GROUP 41775 RCHOL/HDL 4.73 RATIO 09/19/2012 Unknow n FREE T4 45889 FREE T4 0.87 NG/DL 05/06/2012 Unknown GLYCOSYLATED HEMOGLOBIN TEST 61215 A1C HPLC 64547-3 6.4 % 0 05/06/2012 Unknown LIPID GROUP 62678 HDL TEST 44 MG/DL 05/06/2012 Unknown LIPID GROUP 66956 TRIG 177 MG/DL 05/06/2012 Unknown LIPID GROUP 64181 TEST LDL 113 MG/DL 05/06/2012 Unknown LIPID GROUP 31185 CHOL 192 MG/DL 05/06/2012 Unknown LIPID GROUP 84602 RCHOL/HDL 4.36 RATIO 05/06/2012 Unknow n THYROID STIMULATING HORMONE 03545 TSH 1.151 uIU/ML 05/06/2012 Unknown COMPLETE BLOOD COUNT 61777 WBC 7.8 10e9/L 05/06/20 12 Unknown COMPLETE BLOOD COUNT 68036 RBC 4.31 10e12/L 2011 Unknown COMPLETE BLOOD COUNT 68455 HGB 12.8 g/dL 2 Unknown COMPLETE BLOOD COUNT 21307 HCT DET 39.1 % 2 Unknown COMPLETE BLOOD COUNT 84502 MCV 90.7 fL 2 Unknown COMPLETE BLOOD COUNT 27473 MCH 29.7 pg 2 Unknown COMPLETE BLOOD COUNT 31381 MCHC 32.7 g/dL 2 Unknown COMPLETE BLOOD COUNT 58029 PLT 207 10e9/L 05/06/20 12 Unknown COMPLETE BLOOD COUNT 31746 MPV 10.2 fL 2 Unknown COMPLETE BLOOD COUNT 42248 SUSIE % 74.2 % 2 Unknown COMPLETE BLOOD COUNT 30274 LY % 12.8 % 2 Unknown COMPLETE BLOOD COUNT 26523 MON % 11.0 % 2 Unknown COMPLETE BLOOD COUNT 76318 EOS % 1.7 % 2 Unknown COMPLETE BLOOD COUNT 40191 BASO % 0.3 % 2 Unknown COMPLETE BLOOD COUNT 46509 RDW 13.7 % 2 Unknown COMPLETE BLOOD COUNT 52369 ABS SUSIE 5.79 10e9/L 012 Unknown COMPLETE BLOOD COUNT 96257 ABS LYMPH 1.00 10e9/L 012 Unknown COMPLETE BLOOD COUNT 38523 ABS MONO 0.86 10e9/L 012 Unknown COMPLETE BLOOD COUNT 83021 ABS EOS 0.13 10e9/L 012 Unknown COMPLETE BLOOD COUNT 94721 ABS BASO 0.02 10e9/L 012 Unknown COMPLETE BLOOD COUNT 79807 RDW-SD 44.4 fL 2 Unknown COMPREHENSIVE METABOLIC 36384 AST 13 U/L 2011 Unknown COMPREHENSIVE METABOLIC 24136 ALT 14 IU/L 2011 Unknown COMPREHENSIVE METABOLIC 78701 BUN 17 MG/DL 2011 Unknown COMPREHENSIVE METABOLIC 43212 ALBUMIN 4.5 GM/DL 2011 Unknown COMPREHENSIVE METABOLIC 37523 CHLORIDE 101 MMOL/L 05/06 Unknown COMPREHENSIVE METABOLIC 11077 BILI TOT 0.5 MG/DL 2011 Unknown COMPREHENSIVE METABOLIC 42459 ALK PHOS 42 U/L 2011 Unknown COMPREHENSIVE METABOLIC 54151 SODIUM 141 MMOL/L 05/06 Unknown COMPREHENSIVE METABOLIC 98184 CREATININE 1.02 MG/DL 04/24 Unknown COMPREHENSIVE METABOLIC 68624 CALCIUM 9.7 MG/DL 2011 Unknown COMPREHENSIVE METABOLIC 96858 POTASSIUM 4.6 MMOL/L 05/06 Unknown COMPREHENSIVE METABOLIC 09322 PROT TOT 6.5 GM/DL 2011 Unknown COMPREHENSIVE METABOLIC 84351 Glucose 139 MG/DL 2011 Unknown COMPREHENSIVE METABOLIC 23219 BICARB 29 MMOL/L 2011 Unknown COMPREHENSIVE METABOLIC 78978 ANION GAP 11 MEQ/L 2011 Unknown GFR CALC 6613914 GFR AA >60 ML/MIN 05/06/2012 Unknown GFR CALC 5520451 GFR NON-AA 54.0L ML/MIN 05/06/2012 Unkno wn GLYCOSYLATED HEMOGLOBIN TEST 25355 A1C HPLC 19066-6 6.6 % 1 09/30/2010 Unknown FREE T4 97287 FREE T4 1.00 NG/DL 07/26/2011 Unknown LIPID GROUP 77445 HDL TEST 40 MG/DL 07/26/2011 Unknown LIPID GROUP 19919 TRIG 136 MG/DL 07/26/2011 Unknown LIPID GROUP 90994 TEST LDL 126 MG/DL 07/26/2011 Unknown LIPID GROUP 31331 CHOL 193 MG/DL 07/26/2011 Unknown LIPID GROUP 86683 RCHOL/HDL 4.83 RATIO 07/26/2011 Unknow n COMPREHENSIVE METABOLIC 18328 AST 15 U/L 2010 Unknown COMPREHENSIVE METABOLIC 61598 ALT 13 IU/L 2010 Unknown COMPREHENSIVE METABOLIC 52963 BUN 17 MG/DL 2010 Unknown COMPREHENSIVE METABOLIC 15806 ALBUMIN 4.4 GM/DL 2010 Unknown COMPREHENSIVE METABOLIC 33612 CHLORIDE 102 MMOL/L 07/26 Unknown COMPREHENSIVE METABOLIC 06575 BILI TOT 0.5 MG/DL 2010 Unknown COMPREHENSIVE METABOLIC 42428 ALK PHOS 54 U/L 2010 Unknown COMPREHENSIVE METABOLIC 20899 SODIUM 138 MMOL/L 07/26 Unknown COMPREHENSIVE METABOLIC 44288 CREATININE 0.95 MG/DL 10/2010 Unknown COMPREHENSIVE METABOLIC 80493 CALCIUM 9.3 MG/DL 2010 Unknown COMPREHENSIVE METABOLIC 56469 POTASSIUM 4.3 MMOL/L 07/26 Unknown COMPREHENSIVE METABOLIC 79841 PROT TOT 6.7 GM/DL 2010 Unknown COMPREHENSIVE METABOLIC 50963 Glucose 116 MG/DL 2010 Unknown COMPREHENSIVE METABOLIC 85187 BICARB 28 MMOL/L 2010 Unknown COMPREHENSIVE METABOLIC 30775 ANION GAP 8 MEQ/L 2010 Unknown PSA EQUIMOLAR JONATAN 94849 PSA EQ 1.01 NG/ML 1 Unknown COMPLETE BLOOD COUNT 01145 WBC 6.4 10e9/L 07/26/20 11 Unknown COMPLETE BLOOD COUNT 25217 RBC 4.43 10e12/L 2010 Unknown COMPLETE BLOOD COUNT 59154 HGB 13.2 g/dL 1 Unknown COMPLETE BLOOD COUNT 28760 HCT DET 39.3 % 1 Unknown COMPLETE BLOOD COUNT 18598 MCV 88.7 fL 1 Unknown COMPLETE BLOOD COUNT 74097 MCH 29.8 pg 1 Unknown COMPLETE BLOOD COUNT 56379 MCHC 33.6 g/dL 1 Unknown COMPLETE BLOOD COUNT 48315 PLT 226 10e9/L 07/26/20 11 Unknown COMPLETE BLOOD COUNT 06860 MPV 9.9 fL 1 Unknown COMPLETE BLOOD COUNT 14037 SUSIE % 65.4 % 1 Unknown COMPLETE BLOOD COUNT 66785 LY % 19.7 % 1 Unknown COMPLETE BLOOD COUNT 04276 MON % 10.8 % 1 Unknown COMPLETE BLOOD COUNT 95522 EOS % 3.6 % 1 Unknown COMPLETE BLOOD COUNT 15406 BASO % 0.5 % 1 Unknown COMPLETE BLOOD COUNT 72392 RDW 13.2 % 1 Unknown COMPLETE BLOOD COUNT 37707 ABS SUSIE 4.19 10e9/L 011 Unknown COMPLETE BLOOD COUNT 19238 ABS LYMPH 1.26 10e9/L 011 Unknown COMPLETE BLOOD COUNT 21750 ABS MONO 0.69 10e9/L 011 Unknown COMPLETE BLOOD COUNT 05387 ABS EOS 0.23 10e9/L 011 Unknown COMPLETE BLOOD COUNT 91553 ABS BASO 0.03 10e9/L 011 Unknown COMPLETE BLOOD COUNT 26349 RDW-SD 41.7 fL 1 Unknown THYROID STIMULATING HORMONE 57740 TSH 1.345 uIU/ML 07/26/2011 Unknown GFR CALC 2153381 GFR AA >60 ML/MIN 07/26/2011 Unknown GFR CALC 6313897 GFR NON-AA >60 ML/MIN 07/26/2011 Unknown BRAIN NATRIURETIC PEPTIDE(BNP) 27600 BRAIN PEP 23 pg/mL 01/19/2011 Unknown CANCEL 4589134 CANCEL FOOTNOTE 01/18/2011 Unknown TESTOSTERONE TOTAL 63075 TESTOS TO 138 NG/DL 12/19/2010 Unknown COMPLETE BLOOD COUNT 91444 WBC 8.4 10e9/L 12/08/19 11 Unknown COMPLETE BLOOD COUNT 02643 RBC 4.40 10e12/L 2010 Unknown COMPLETE BLOOD COUNT 80269 HGB 13.3 g/dL 1 Unknown COMPLETE BLOOD COUNT 80658 HCT DET 39.8 % 1 Unknown COMPLETE BLOOD COUNT 85201 MCV 90.5 fL 1 Unknown COMPLETE BLOOD COUNT 08584 MCH 30.2 pg 1 Unknown COMPLETE BLOOD COUNT 11211 MCHC 33.4 g/dL 1 Unknown COMPLETE BLOOD COUNT 17686 PLT 201 10e9/L 12/08/19 11 Unknown COMPLETE BLOOD COUNT 92141 MPV 10.6 fL 1 Unknown COMPLETE BLOOD COUNT 65234 SUSIE % 72.5 % 1 Unknown COMPLETE BLOOD COUNT 34791 LY % 14.8 % 1 Unknown COMPLETE BLOOD COUNT 46860 MON % 10.6 % 1 Unknown COMPLETE BLOOD COUNT 54533 EOS % 1.7 % 1 Unknown COMPLETE BLOOD COUNT 31863 BASO % 0.4 % 1 Unknown COMPLETE BLOOD COUNT 64061 RDW 13.7 % 1 Unknown COMPLETE BLOOD COUNT 65374 ABS SUSIE 6.09 10e9/L 011 Unknown COMPLETE BLOOD COUNT 18247 ABS LYMPH 1.24 10e9/L 011 Unknown COMPLETE BLOOD COUNT 80085 ABS MONO 0.89 10e9/L 011 Unknown COMPLETE BLOOD COUNT 21922 ABS EOS 0.14 10e9/L 011 Unknown COMPLETE BLOOD COUNT 11335 ABS BASO 0.03 10e9/L 011 Unknown COMPLETE BLOOD COUNT 47816 RDW-SD 44.0 fL 1 Unknown LIPID GROUP 39493 HDL TEST 40 MG/DL 12/07/2010 Unknown LIPID GROUP 76976 TRIG 383 MG/DL 12/07/2010 Unknown LIPID GROUP 44664 TEST LDL 82 MG/DL 12/07/2010 Unknown LIPID GROUP 58085 CHOL 199 MG/DL 12/07/2010 Unknown LIPID GROUP 61883 RCHOL/HDL 4.98 RATIO 12/07/2010 Unknow n GFR CALC 1822346 GFR AA >60 ML/MIN 12/07/2010 Unknown GFR CALC 9769040 GFR NON-AA >60 ML/MIN 12/07/2010 Unknown COMPREHENSIVE METABOLIC 21176 AST 29 U/L 2010 Unknown COMPREHENSIVE METABOLIC 36306 ALT 39 IU/L 2010 Unknown COMPREHENSIVE METABOLIC 14258 BUN 17 MG/DL 2010 Unknown COMPREHENSIVE METABOLIC 54301 ALBUMIN 4.9 GM/DL 2010 Unknown COMPREHENSIVE METABOLIC 14441 CHLORIDE 100 MMOL/L 12/07 Unknown COMPREHENSIVE METABOLIC 17534 BILI TOT 0.3 MG/DL 2010 Unknown COMPREHENSIVE METABOLIC 48904 ALK PHOS 53 U/L 2010 Unknown COMPREHENSIVE METABOLIC 04793 SODIUM 137 MMOL/L 12/07 Unknown COMPREHENSIVE METABOLIC 19428 CREATININE 0.98 MG/DL 11/22 Unknown COMPREHENSIVE METABOLIC 31104 CALCIUM 9.5 MG/DL 2010 Unknown COMPREHENSIVE METABOLIC 79872 POTASSIUM 4.3 MMOL/L 12/07 Unknown COMPREHENSIVE METABOLIC 30431 PROT TOT 6.6 GM/DL 2010 Unknown COMPREHENSIVE METABOLIC 17437 Glucose 176 MG/DL 2010 Unknown COMPREHENSIVE METABOLIC 32740 BICARB 28 MMOL/L 2010 Unknown COMPREHENSIVE METABOLIC 84727 ANION GAP 9 MEQ/L 2010 Unknown PSA EQUIMOLAR JONATAN 00519 PSA EQ 0.65 NG/ML 1 Unknown HEMOGLOBIN A1C (GLYCOSYLATED) 52207 A1C HPLC 93394-2 6.9 % 12/07/2010 Unknown Procedures Procedure Codes Date THER/PROPH/DIAG INJ SC/IM CPT-4: 61916 12/25/2019 METHYLPREDNISOLONE INJECTION CPT-4: J2930 12/25/2019 FLU VACC PRSV FREE INC ANTIG 65 AND OLDER CPT-4: 84512 08/07/2019 FLU VACC PRSV FREE INC ANTIG 65 AND OLDER CPT-4: 19814 08/07/2019 ADMIN INFLUENZA VIRUS VAC CPT-4: G0008 08/07/2019 THER/PROPH/DIAG INJ SC/IM CPT-4: 92679 07/14/2019 METHYLPREDNISOLONE INJECTION CPT-4: J2930 07/14/2019 ROUTINE VENIPUNCTURE CPT-4: 22715 06/17/2019 ASSAY THYROID STIM HORMONE CPT-4: 30842 06/17/2019 COMPREHEN METABOLIC PANEL CPT-4: 38010 06/17/2019 COMPLETE CBC W/AUTO DIFF WBC CPT-4: 66409 06/17/2019 ASSAY OF IRON CPT-4: 37310 06/17/2019 VITAMIN B-12 CPT-4: 69915 06/17/2019 RBC SED RATE AUTOMATED CPT-4: 76987 06/17/2019 THER/PROPH/DIAG INJ SC/IM CPT-4: 35558 06/10/2019 THER/PROPH/DIAG INJ SC/IM CPT-4: 61202 06/02/2019 THER/PROPH/DIAG INJ SC/IM CPT-4: 73416 05/27/2019 THER/PROPH/DIAG INJ SC/IM CPT-4: 68381 05/12/2019 ROUTINE VENIPUNCTURE CPT-4: 22847 05/08/2019 COMPREHEN METABOLIC PANEL CPT-4: 88038 05/08/2019 COMPLETE CBC W/AUTO DIFF WBC CPT-4: 07119 05/08/2019 A1C HPLC CPT-4: 51360 05/08/2019 VITAMIN D TOTAL (25 HYDROXY) CPT-4: 17628 05/08/2019 ASSAY OF IRON CPT-4: 32719 05/08/2019 ASSAY OF FERRITIN CPT-4: 90862 05/08/2019 VITAMIN B-12 CPT-4: 73907 05/08/2019 THER/PROPH/DIAG INJ SC/IM CPT-4: 07428 03/21/2019 METHYLPREDNISOLONE INJECTION CPT-4: J2930 03/21/2019 THER/PROPH/DIAG INJ SC/IM CPT-4: 38089 03/13/2019 METHYLPREDNISOLONE INJECTION CPT-4: J2930 03/13/2019 THER/PROPH/DIAG INJ SC/IM CPT-4: 31123 12/25/2018 METHYLPREDNISOLONE INJECTION CPT-4: J2930 12/25/2018 ROUTINE VENIPUNCTURE CPT-4: 75637 12/09/2018 ASSAY OF FREE THYROXINE CPT-4: 55188 12/09/2018 ASSAY THYROID STIM HORMONE CPT-4: 06968 12/09/2018 COMPREHEN METABOLIC PANEL CPT-4: 05196 12/09/2018 COMPLETE CBC W/AUTO DIFF WBC CPT-4: 95601 12/09/2018 LIPID PANEL CPT-4: 84159 12/09/2018 A1C HPLC CPT-4: 60781 12/09/2018 PRESCRIP TRANSMIT VIA ERX SY CPT-4: G8553 08/21/2018 PRESCRIP TRANSMIT VIA ERX SY CPT-4: G8553 08/07/2018 THER/PROPH/DIAG INJ SC/IM CPT-4: 13463 05/23/2018 METHYLPREDNISOLONE INJECTION CPT-4: J2930 05/23/2018 PRESCRIP TRANSMIT VIA ERX SY CPT-4: G8553 05/02/2018 THER/PROPH/DIAG INJ SC/IM CPT-4: 88358 04/29/2018 METHYLPREDNISOLONE INJECTION CPT-4: J2930 04/29/2018 DEXAMETHASONE SODIUM PHOS CPT-4: J1100 04/22/2018 THER/PROPH/DIAG INJ SC/IM CPT-4: 04317 04/22/2018 TRIAMCINOLONE ACET INJ NOS CPT-4: J3301 04/22/2018 PRESCRIP TRANSMIT VIA ERX SY CPT-4: G8553 04/22/2018 PRESCRIP TRANSMIT VIA ERX SY CPT-4: G8553 01/23/2018 URINALYSIS NONAUTO W/O SCOPE CPT-4: 13514 01/02/2018 URINE CULTURE/ COLONY COUNT CPT-4: 22539 01/02/2018 PRESCRIP TRANSMIT VIA ERX SY CPT-4: G8553 01/02/2018 PRESCRIP TRANSMIT VIA ERX SY CPT-4: G8553 12/28/2017 PRESCRIP TRANSMIT VIA ERX SY CPT-4: G8553 12/21/2017 CEFTRIAXONE SODIUM INJECTION CPT-4: J0696 12/17/2017 THER/PROPH/DIAG INJ SC/IM CPT-4: 76474 12/17/2017 THER/PROPH/DIAG INJ SC/IM CPT-4: 82512 12/17/2017 TRIAMCINOLONE ACET INJ NOS CPT-4: J3301 12/17/2017 PRESCRIP TRANSMIT VIA ERX SY CPT-4: G8553 12/17/2017 DRAIN/INJECT JOINT/BURSA CPT-4: 78545 12/11/2017 TRIAMCINOLONE ACET INJ NOS CPT-4: J3301 12/11/2017 DEXAMETHASONE SODIUM PHOS CPT-4: J1100 12/11/2017 DESTRUCT PREMALG LESION (Cryosurgery) CPT-4: 95597 PRESCRIP TRANSMIT VIA ERX SY CPT-4: G8553 10/17/2017 DEXAMETHASONE SODIUM PHOS CPT-4: J1100 08/02/2017 THER/PROPH/DIAG INJ SC/IM CPT-4: 98783 08/02/2017 TRIAMCINOLONE ACET INJ NOS CPT-4: J3301 08/02/2017 PRESCRIP TRANSMIT VIA ERX SY CPT-4: G8553 08/02/2017 PNEUMOCOCCAL VACC 23 OLIVIA IM CPT-4: 88884 07/24/2017 ADMIN PNEUMOCOCCAL VACCINE CPT-4: G0009 07/24/2017 ALBUTEROL NON-COMP UNIT CPT-4: J7613 07/02/2017 AIRWAY INHALATION TREATMENT CPT-4: 61614 07/02/2017 THER/PROPH/DIAG INJ SC/IM CPT-4: 07806 07/02/2017 METHYLPREDNISOLONE INJECTION CPT-4: J2930 07/02/2017 PRESCRIP TRANSMIT VIA ERX SY CPT-4: G8553 05/29/2017 ROUTINE VENIPUNCTURE CPT-4: 20890 04/17/2017 ASSAY OF IRON CPT-4: 57750 04/17/2017 VITAMIN B-12 CPT-4: 17998 04/17/2017 COMPREHEN METABOLIC PANEL CPT-4: 18098 04/17/2017 COMPLETE CBC W/AUTO DIFF WBC CPT-4: 26001 04/17/2017 ASSAY OF FERRITIN CPT-4: 79955 04/17/2017 ASSAY THYROID STIM HORMONE CPT-4: 65858 04/17/2017 A1C HPLC CPT-4: 94368 04/17/2017 DRAIN/INJECT JOINT/BURSA CPT-4: 84148 02/01/2017 TRIAMCINOLONE ACET INJ NOS CPT-4: J3301 02/01/2017 DEXAMETHASONE SODIUM PHOS CPT-4: J1100 02/01/2017 ROUTINE VENIPUNCTURE CPT-4: 28078 12/27/2016 COMPLETE CBC W/AUTO DIFF WBC CPT-4: 41993 12/27/2016 ROUTINE VENIPUNCTURE CPT-4: 88423 12/21/2016 COMPLETE CBC W/AUTO DIFF WBC CPT-4: 13218 12/21/2016 ROUTINE VENIPUNCTURE CPT-4: 69089 12/12/2016 COMPLETE CBC W/AUTO DIFF WBC CPT-4: 26352 12/12/2016 PRESCRIP TRANSMIT VIA ERX SY CPT-4: G8553 10/31/2016 PRESCRIP TRANSMIT VIA ERX SY CPT-4: G8553 10/03/2016 PRESCRIP TRANSMIT VIA ERX SY CPT-4: G8553 09/04/2016 DESTRUCT PREMALG LESION (Cryosurgery) CPT-4: 34054 DESTRUCT PREMALG LES 2-14 CPT-4: 73131 08/22/2016 PRESCRIP TRANSMIT VIA ERX SY CPT-4: G8553 08/10/2016 PRESCRIP TRANSMIT VIA ERX SY CPT-4: G8553 07/06/2016 FLU VACC PRSV FREE INC ANTIG 65 AND OLDER CPT-4: 65081 06/13/2016 PNEUMOCOCCAL VACC 13 OLIVIA IM CPT-4: 49017 06/13/2016 ADMIN INFLUENZA VIRUS VAC CPT-4: G0008 06/13/2016 ADMIN PNEUMOCOCCAL VACCINE CPT-4: G0009 06/13/2016 CERUM REMOVAL CPT-4: 08287 04/05/2016 PRESCRIP TRANSMIT VIA ERX SY CPT-4: G8553 04/03/2016 ROUTINE VENIPUNCTURE CPT-4: 43389 03/06/2016 ASSAY OF FREE THYROXINE CPT-4: 77447 03/06/2016 ASSAY THYROID STIM HORMONE CPT-4: 91790 03/06/2016 COMPREHEN METABOLIC PANEL CPT-4: 04106 03/06/2016 COMPLETE CBC W/AUTO DIFF WBC CPT-4: 53941 03/06/2016 LIPID PANEL CPT-4: 86877 03/06/2016 ASSAY OF PSA TOTAL CPT-4: 47833 03/06/2016 TESTOSTERONE TOTAL - MALE CPT-4: 56100 03/06/2016 A1C HPLC CPT-4: 59861 03/06/2016 ASSAY OF IRON CPT-4: 43313 03/06/2016 VITAMIN B-12 CPT-4: 18918 03/06/2016 INJ TENDON SHEATH/LIGAMENT CPT-4: 13592 02/17/2016 TRIAMCINOLONE ACET INJ NOS CPT-4: J3301 02/17/2016 DEXAMETHASONE SODIUM PHOS CPT-4: J1100 02/17/2016 PRESCRIP TRANSMIT VIA ERX SY CPT-4: G8553 01/31/2016 PRESCRIP TRANSMIT VIA ERX SY CPT-4: G8553 12/30/2015 PRESCRIP TRANSMIT VIA ERX SY CPT-4: G8553 12/06/2015 PRESCRIP TRANSMIT VIA ERX SY CPT-4: G8553 11/15/2015 PPPS, subseq visit CPT-4: G0439 10/05/2015 MICROALBUMIN QUANTITATIVE CPT-4: 09136 10/05/2015 PROTEIN/CREAT URINE WITH RATIO CPT-4: 27596|72290 6 ROUTINE VENIPUNCTURE CPT-4: 13253 07/01/2015 ASSAY OF FREE THYROXINE CPT-4: 08634 07/01/2015 ASSAY THYROID STIM HORMONE CPT-4: 56673 07/01/2015 COMPLETE CBC W/AUTO DIFF WBC CPT-4: 16003 07/01/2015 LIPID PANEL CPT-4: 59718 07/01/2015 ASSAY OF PSA TOTAL CPT-4: 65529 07/01/2015 AEROBIC WOUND CULTURE & STN CPT-4: 58592 06/28/2015 PRESCRIP TRANSMIT VIA ERX SY CPT-4: G8553 06/28/2015 AEROBIC WOUND CULTURE & STN CPT-4: 81189 06/03/2015 PRESCRIP TRANSMIT VIA ERX SY CPT-4: G8553 06/03/2015 ROUTINE VENIPUNCTURE CPT-4: 92109 06/01/2015 COMPREHEN METABOLIC PANEL CPT-4: 36160 06/01/2015 A1C HPLC CPT-4: 23771 06/01/2015 COMPREHEN METABOLIC PANEL CPT-4: 82690 02/25/2015 A1C HPLC CPT-4: 11952 02/25/2015 DESTRUCT PREMALG LESION (Cryosurgery) CPT-4: 90869 PROTEIN/CREAT URINE WITH RATIO CPT-4: 73383|56209 5 MICROALBUMIN QUANTITATIVE CPT-4: 19440 10/27/2014 INFLUENZA ASSAY W/OPTIC CPT-4: 90045 10/21/2014 PRESCRIP TRANSMIT VIA ERX SY CPT-4: G8553 10/06/2014 PRESCRIP TRANSMIT VIA ERX SY CPT-4: G8553 09/21/2014 PRESCRIP TRANSMIT VIA ERX SY CPT-4: G8553 09/02/2014 MICROALBUMIN QUANTITATIVE CPT-4: 80092 08/27/2014 PROTEIN/CREAT URINE WITH RATIO CPT-4: 16218|76447 4 PPPS, subseq visit CPT-4: G0439 08/10/2014 ROUTINE VENIPUNCTURE CPT-4: 40656 08/05/2014 ASSAY OF FREE THYROXINE CPT-4: 34125 08/05/2014 ASSAY THYROID STIM HORMONE CPT-4: 43741 08/05/2014 COMPREHEN METABOLIC PANEL CPT-4: 70990 08/05/2014 COMPLETE CBC W/AUTO DIFF WBC CPT-4: 14931 08/05/2014 LIPID PANEL CPT-4: 26798 08/05/2014 A1C HPLC CPT-4: 28800 08/05/2014 FLUZONE, 5ML (Medicare) CPT-4: Q2038 08/05/2014 ADMIN INFLUENZA VIRUS VAC CPT-4: G0008 08/05/2014 METHYLPREDNISOLONE 40 MG INJ CPT-4: J1030 12/16/2013 TRIAMCINOLONE ACET INJ NOS CPT-4: J3301 12/16/2013 DRAIN/INJECT JOINT/BURSA CPT-4: 97106 12/16/2013 PRESCRIP TRANSMIT VIA ERX SY CPT-4: G8553 10/09/2013 THER/PROPH/DIAG INJ SC/IM CPT-4: 49426 09/18/2013 METHYLPREDNISOLONE 40 MG INJ CPT-4: J1030 09/18/2013 TRIAMCINOLONE ACET INJ NOS CPT-4: J3301 09/18/2013 PRESCRIP TRANSMIT VIA ERX SY CPT-4: G8553 09/18/2013 PRESCRIP TRANSMIT VIA ERX SY CPT-4: G8553 08/13/2013 ROUTINE VENIPUNCTURE CPT-4: 06882 06/25/2013 ASSAY OF FREE THYROXINE CPT-4: 61925 06/25/2013 ASSAY THYROID STIM HORMONE CPT-4: 47337 06/25/2013 COMPREHEN METABOLIC PANEL CPT-4: 46595 06/25/2013 COMPLETE CBC W/AUTO DIFF WBC CPT-4: 88340 06/25/2013 LIPID PANEL CPT-4: 92183 06/25/2013 A1C GLYCOSYLATED HEMOGLOBIN TEST CPT-4: 12360 013 ROUTINE VENIPUNCTURE CPT-4: 24005 04/09/2013 COMPLETE CBC W/AUTO DIFF WBC CPT-4: 13840 04/09/2013 MYCOPLASMA ANTIBODY, IFA CPT-4: 76837G2 04/09/2013 ROUTINE VENIPUNCTURE CPT-4: 88660 02/11/2013 ASSAY OF FREE THYROXINE CPT-4: 06570 02/11/2013 ASSAY THYROID STIM HORMONE CPT-4: 69311 02/11/2013 COMPREHEN METABOLIC PANEL CPT-4: 10478 02/11/2013 COMPLETE CBC W/AUTO DIFF WBC CPT-4: 98209 02/11/2013 VITAMIN B 12 FOLIC ACID CPT-4: 68467|67541 02/11/2013 C-REACTIVE PROTEIN CPT-4: 50698 02/11/2013 A1C GLYCOSYLATED HEMOGLOBIN TEST CPT-4: 77897 013 ASSAY OF BLOOD/URIC ACID CPT-4: 88249 02/11/2013 CEFTRIAXONE SODIUM INJECTION CPT-4: J0696 01/31/2013 THER/PROPH/DIAG INJ SC/IM CPT-4: 32738 01/31/2013 THER/PROPH/DIAG INJ SC/IM CPT-4: 36175 01/31/2013 METHYLPREDNISOLONE 40 MG INJ CPT-4: J1030 01/31/2013 TRIAMCINOLONE ACET INJ NOS CPT-4: J3301 01/31/2013 ROUTINE VENIPUNCTURE CPT-4: 55080 09/19/2012 COMPREHEN METABOLIC PANEL CPT-4: 87833 09/19/2012 LIPID PANEL CPT-4: 62215 09/19/2012 A1C GLYCOSYLATED HEMOGLOBIN TEST CPT-4: 50664 012 PNEUMOCOCCAL VACC 23 OLIVIA IM CPT-4: 41819 07/10/2012 FLUZONE, 5ML (Medicare) CPT-4: Q2038 07/10/2012 ADMIN INFLUENZA VIRUS VAC CPT-4: G0008 07/10/2012 ADMIN PNEUMOCOCCAL VACCINE CPT-4: G0009 07/10/2012 ROUTINE VENIPUNCTURE CPT-4: 01845 05/06/2012 ASSAY OF FREE THYROXINE CPT-4: 20159 05/06/2012 ASSAY THYROID STIM HORMONE CPT-4: 53600 05/06/2012 COMPREHEN METABOLIC PANEL CPT-4: 11008 05/06/2012 COMPLETE CBC W/AUTO DIFF WBC CPT-4: 72225 05/06/2012 LIPID PANEL CPT-4: 09135 05/06/2012 A1C GLYCOSYLATED HEMOGLOBIN TEST CPT-4: 59382 012 IMMUNIZATION ADMIN CPT-4: 59646 02/05/2012 FLUZONE, 5ML (Medicare) CPT-4: Q2038 08/10/2011 ADMIN INFLUENZA VIRUS VAC CPT-4: G0008 08/10/2011 ROUTINE VENIPUNCTURE CPT-4: 13824 07/26/2011 ASSAY OF FREE THYROXINE CPT-4: 98684 07/26/2011 ASSAY THYROID STIM HORMONE CPT-4: 98471 07/26/2011 COMPREHEN METABOLIC PANEL CPT-4: 47505 07/26/2011 COMPLETE CBC W/AUTO DIFF WBC CPT-4: 31287 07/26/2011 LIPID PANEL CPT-4: 69132 07/26/2011 A1C GLYCOSYLATED HEMOGLOBIN TEST CPT-4: 53306 011 ASSAY OF PSA TOTAL CPT-4: 00157 07/26/2011 ROUTINE VENIPUNCTURE CPT-4: 09927 01/19/2011 ASSAY OF NATRIURETIC PEPTIDE CPT-4: 52778 01/19/2011 THER/PROPH/DIAG INJ SC/IM CPT-4: 35713 01/19/2011 CEFTRIAXONE SODIUM INJECTION CPT-4: J0696 01/19/2011 METHYLPREDNISOLONE INJECTION CPT-4: J2930 01/19/2011 THER/PROPH/DIAG INJ SC/IM CPT-4: 03397 01/19/2011 THER/PROPH/DIAG INJ SC/IM CPT-4: 96007 01/18/2011 CEFTRIAXONE SODIUM INJECTION CPT-4: J0696 01/18/2011 METHYLPREDNISOLONE INJECTION CPT-4: J2930 01/18/2011 THER/PROPH/DIAG INJ SC/IM CPT-4: 08336 01/18/2011 THER/PROPH/DIAG INJ SC/IM CPT-4: 72021 12/21/2010 TESTOSTERONE CYPIONAT 100 MG CPT-4: J1070 12/21/2010 ROUTINE VENIPUNCTURE CPT-4: 77654 12/19/2010 TESTOSTERONE TOTAL - MALE CPT-4: 83419 12/19/2010 ROUTINE VENIPUNCTURE CPT-4: 09435 12/07/2010 COMPLETE CBC W/AUTO DIFF WBC CPT-4: 23821 12/07/2010 COMPREHEN METABOLIC PANEL CPT-4: 57432 12/07/2010 LIPID PANEL CPT-4: 70813 12/07/2010 A1C GLYCOSYLATED HEMOGLOBIN TEST CPT-4: 62827 011 ASSAY OF PSA TOTAL CPT-4: 55604 12/07/2010 ROUTINE VENIPUNCTURE CPT-4: 64054 04/05/2010 PRESCRIP TRANSMIT VIA ERX SY CPT-4: G8553 04/05/2010 ROUTINE VENIPUNCTURE CPT-4: 04016 01/13/2010 METHYLPREDNISOLONE INJECTION CPT-4: J2930 12/22/2009 THER/PROPH/DIAG INJ SC/IM CPT-4: 29433 12/22/2009 THER/PROPH/DIAG INJ SC/IM CPT-4: 51167 12/22/2009 CEFTRIAXONE SODIUM INJECTION CPT-4: J0696 12/22/2009 ROUTINE VENIPUNCTURE CPT-4: 54658 12/22/2009 COMPLETE CBC W/AUTO DIFF WBC CPT-4: 30223 12/22/2009 RBC SED RATE, AUTOMATED CPT-4: 67383 12/22/2009 RPR FE/E/EN/L/M 20.1-30.0 CM CPT-4: 94982 12/22/2009 EKG FOR INITIAL PREVENT EXAM CPT-4: G0403 12/22/2009 THER/PROPH/DIAG INJ SC/IM CPT-4: 64320 12/16/2009 KETOROLAC TROMETHAMINE INJ CPT-4: J1885 12/16/2009 [...] 1: 126/68 Code: 8480-6 BMI: 30.2 Code: 80598-5 Heart Rate 1: 92 bpm Height: 6' Respiratory Rate: 22 bpm SpO2: 94% Tempera ture: 36.9 (C) / 98.5 (F) Weight: 223 lbs 08/21/2018 Blood Pressure 1: 160/70 Code: 8480-6 Heart Rate 1: 79 bpm Respiratory Rate: 20 bpm SpO2: 94% Temperature: 36.7 (C) / 98.0 (F) We ight: 226 lbs 8 oz 08/07/2018 Blood Pressure 1: 138/70 Code: 8480-6 BMI: 30.1 Code: 49200-0 Heart Rate 1: 80 bpm Height: 6' Respiratory Rate: 20 bpm SpO2: 94% Tempera ture: 36.9 (C) / 98.5 (F) Weight: 222 lbs 05/23/2018 Blood Pressure 1: 148/66 Code: 8480-6 BMI: 30.0 Code: 32081-6 Heart Rate 1: 96 bpm Height: 6' Respiratory Rate: 22 bpm SpO2: 94% Tempera ture: 37.3 (C) / 99.1 (F) Weight: 221 lbs 05/02/2018 Blood Pressure 1: 146/78 Code: 8480-6 BMI: 29.6 Code: 59979-1 Heart Rate 1: 78 bpm Height: 6' Respiratory Rate: 26 bpm SpO2: 94% Tempera ture: 35.7 (C) / 96.2 (F) Weight: 218 lbs 04/29/2018 Blood Pressure 1: 142/62 Code: 8480-6 BMI: 28.6 Code: 55212-6 Heart Rate 1: 82 bpm Height: 6' Respiratory Rate: 22 bpm SpO2: 98% Tempera ture: 36.4 (C) / 97.6 (F) Weight: 211 lbs 04/22/2018 Blood Pressure 1: 126/64 Code: 8480-6 BMI: 30.0 Code: 43315-1 Heart Rate 1: 96 bpm Height: 6' [...] 1: 144/78 Code: 8480-6 BMI: 30.7 Code: 25329-2 Heart Rate 1: 92 bpm Height: 6' Respiratory Rate: 28 bpm SpO2: 94% Tempera ture: 36.9 (C) / 98.4 (F) Weight: 226 lbs 12/28/2017 Blood Pressure 1: 136/80 Code: 8480-6 Heart Rate 1: 92 bpm Respiratory Rate: 28 bpm SpO2: 94% Temperature: 36.7 (C) / 98.1 (F) 12/21/2017 Blood Pressure 1: 146/84 Code: 8480-6 BMI: 31.1 Code: 31523-5 Heart Rate 1: 84 bpm Height: 6' [...] 1: 142/64 Code: 8480-6 BMI: 31.3 Code: 52296-5 Heart Rate 1: 98 bpm Height: 6' Respiratory Rate: 24 bpm SpO2: 94% Tempera ture: 36.4 (C) / 97.6 (F) Weight: 231 lbs 10/17/2017 Blood Pressure 1: 140/68 Code: 8480-6 BMI: 31.7 Code: 56684-9 Heart Rate 1: 88 bpm Height: 6' Respiratory Rate: 20 bpm SpO2: 94% Tempera ture: 36.8 (C) / 98.3 (F) Weight: 234 lbs 08/02/2017 Blood Pressure 1: 142/80 Code: 8480-6 BMI: 31.1 Code: 21437-0 Heart Rate 1: 86 bpm Height: 6' Respiratory Rate: 20 bpm SpO2: 90% Tempera ture: 35.9 (C) / 96.7 (F) Weight: 229 lbs 07/02/2017 Blood Pressure 1: 146/64 Code: 8480-6 BMI: 29.6 Code: 24831-3 Heart Rate 1: 96 bpm Height: 6' Respiratory Rate: 20 bpm Temperature: 36 .4 (C) / 97.6 (F) Weight: 218 lbs 05/29/2017 Blood Pressure 1: 152/68 Code: 8480-6 BMI: 31.5 Code: 05491-3 Heart Rate 1: 100 bpm Height: 6' Respiratory Rate: 20 bpm SpO2: 92% Tempera ture: 36.9 (C) / 98.4 (F) Weight: 232 lbs 02/01/2017 Blood Pressure 1: 146/64 Code: 8480-6 BMI: 30.7 Code: 88739-5 Heart Rate 1: 76 bpm Height: 6' Respiratory Rate: 20 bpm SpO2: 95% Tempera ture: 36.8 (C) / 98.2 (F) Weight: 226 lbs 01/29/2017 Blood Pressure 1: 146/78 Code: 8480-6 Heart Rate 1: 84 bpm Respiratory Rate: 20 bpm SpO2: 96% Temperature: 36.1 (C) / 97.0 (F) We ight: 226 lbs 12/21/2016 Blood Pressure 1: 126/60 Code: 8480-6 BMI: 30.8 Code: 31370-8 Heart Rate 1: 88 bpm Height: 6' Respiratory Rate: 22 bpm SpO2: 94% Tempera ture: 36.7 (C) / 98.0 (F) Weight: 227 lbs 12/14/2016 Blood Pressure 1: 126/70 Code: 8480-6 BMI: 29.8 Code: 51972-5 Heart Rate 1: 92 bpm Height: 6' Respiratory Rate: 22 bpm SpO2: 93% Tempera ture: 36.8 (C) / 98.2 (F) Weight: 220 lbs 11/14/2016 Blood Pressure 1: 128/62 Code: 8480-6 Heart Rate 1: 100 bpm Respiratory Rate: 20 bpm SpO2: 96% Temperature: 36.6 (C) / 97.8 (F) We ight: 220 lbs 10/31/2016 Blood Pressure 1: 142/60 Code: 8480-6 BMI: 30.1 Code: 97622-7 Heart Rate 1: 112 bpm Height: 6' Respiratory Rate: 24 bpm SpO2: 93% Tempera ture: 37.1 (C) / 98.7 (F) Weight: 222 lbs 10/03/2016 Blood Pressure 1: 136/78 Code: 8480-6 Heart Rate 1: 106 bpm Respiratory Rate: 24 bpm SpO2: 93% Temperature: 36.6 (C) / 97.8 (F) We ight: 221 lbs 09/04/2016 Blood Pressure 1: 112/44 Code: 8480-6 BMI: 30.1 Code: 03735-8 Heart Rate 1: 90 bpm Height: 6' Respiratory Rate: 20 bpm SpO2: 93% Tempera ture: 36.6 (C) / 97.9 (F) Weight: 222 lbs 08/22/2016 Blood Pressure 1: 142/68 Code: 8480-6 BMI: 30.4 Code: 93560-9 Heart Rate 1: 100 bpm Height: 6' Respiratory Rate: 24 bpm SpO2: 93% Tempera ture: 36.7 (C) / 98.1 (F) Weight: 224 lbs 08/10/2016 Blood Pressure 1: 134/60 Code: 8480-6 BMI: 30.2 Code: 30841-4 Heart Rate 1: 76 bpm Height: 6' [...] 1: 122/72 Code: 8480-6 BMI: 30.7 Code: 27908-0 Heart Rate 1: 96 bpm Height: 6' Respiratory Rate: 22 bpm SpO2: 96% Tempera ture: 35.9 (C) / 96.7 (F) Weight: 226 lbs 04/03/2016 Blood Pressure 1: 146/64 Code: 8480-6 BMI: 30.8 Code: 25690-9 Heart Rate 1: 76 bpm Height: 6' Respiratory Rate: 20 bpm Temperature: 36 .8 (C) / 98.2 (F) Weight: 227 lbs 03/02/2016 Blood Pressure 1: 148/60 Code: 8480-6 BMI: 31.1 Code: 78424-6 Heart Rate 1: 80 bpm Height: 6' Respiratory Rate: 22 bpm SpO2: 94% Tempera ture: 36.6 (C) / 97.8 (F) Weight: 229 lbs 02/17/2016 Blood Pressure 1: 132/60 Code: 8480-6 BMI: 31.3 Code: 02077-7 Heart Rate 1: 80 bpm Height: 6' Respiratory Rate: 20 bpm Temperature: 36 .9 (C) / 98.4 (F) Weight: 231 lbs 02/14/2016 Blood Pressure 1: 126/70 Code: 8480-6 BMI: 31.3 Code: 19778-7 Heart Rate 1: 80 bpm Height: 6' Respiratory Rate: 24 bpm SpO2: 95% Tempera ture: 36.9 (C) / 98.5 (F) Weight: 231 lbs 01/31/2016 Blood Pressure 1: 136/60 Code: 8480-6 Heart Rate 1: 76 bpm Respiratory Rate: 22 bpm Temperature: 37.0 (C) / 98.6 (F) Weight: 230 lbs 12/30/2015 Blood Pressure 1: 128/58 Code: 8480-6 BMI: 31.2 Code: 23357-7 Heart Rate 1: 80 bpm Height: 6' Respiratory Rate: 20 bpm Temperature: 36 .8 (C) / 98.2 (F) Weight: 230 lbs 12/16/2015 Blood Pressure 1: 122/60 Code: 8480-6 BMI: 32.0 Code: 88178-3 Heart Rate 1: 84 bpm Height: 6' Respiratory Rate: 24 bpm Temperature: 37 .1 (C) / 98.7 (F) Weight: 236 lbs 12/06/2015 Blood Pressure 1: 162/74 Code: 8480-6 BMI: 32.5 Code: 62311-5 Heart Rate 1: 90 bpm Height: 6' Respiratory Rate: 20 bpm SpO2: 96% Tempera ture: 36.4 (C) / 97.6 (F) Weight: 240 lbs 11/15/2015 Blood Pressure 1: 166/80 Code: 8480-6 BMI: 32.4 Code: 44146-6 Heart Rate 1: 92 bpm Height: 6' Respiratory Rate: 28 bpm Temperature: 36 .5 (C) / 97.7 (F) Weight: 239 lbs 10/05/2015 Blood Pressure 1: 146/76 Code: 8480-6 BMI: 32.4 Code: 90962-0 Heart Rate 1: 88 bpm Height: 6' Respiratory Rate: 28 bpm Temperature: 37 .1 (C) / 98.7 (F) Weight: 239 lbs 07/22/2015 Blood Pressure 1: 144/68 Code: 8480-6 BMI: 31.9 Code: 41510-7 Heart Rate 1: 88 bpm Height: 6' [...] 1: 142/64 Code: 8480-6 BMI: 32.1 Code: 89337-2 Heart Rate 1: 80 bpm Height: 6' Respiratory Rate: 18 bpm Temperature: 36 .4 (C) / 97.6 (F) Weight: 237 lbs 06/07/2015 Blood Pressure 1: 164/58 Code: 8480-6 BMI: 32.1 Code: 14031-0 Heart Rate 1: 88 bpm Height: 6' Respiratory Rate: 20 bpm Temperature: 36 .6 (C) / 97.9 (F) Weight: 237 lbs 06/03/2015 Blood Pressure 1: 152/64 Code: 8480-6 BMI: 32.1 Code: 16629-8 Heart Rate 1: 96 bpm Height: 6' Respiratory Rate: 20 bpm Temperature: 37 .4 (C) / 99.3 (F) Weight: 237 lbs 06/01/2015 Blood Pressure 1: 136/70 Code: 8480-6 BMI: 31.7 Code: 90708-8 Heart Rate 1: 72 bpm Height: 6' Respiratory Rate: 22 bpm SpO2: 94% Tempera ture: 36.6 (C) / 97.9 (F) Weight: 234 lbs 02/25/2015 Blood Pressure 1: 146/80 Code: 8480-6 BMI: 32.4 Code: 44728-1 Heart Rate 1: 84 bpm Height: 6' Respiratory Rate: 28 bpm Temperature: 36 .7 (C) / 98.0 (F) Weight: 239 lbs 10/27/2014 Blood Pressure 1: 168/70 Code: 8480-6 BMI: 32.0 Code: 18042-3 Heart Rate 1: 80 bpm Height: 6' Respiratory Rate: 30 bpm SpO2: 98% Tempera ture: 36.4 (C) / 97.6 (F) Weight: 236 lbs 10/21/2014 Blood Pressure 1: 152/58 Code: 8480-6 BMI: 32.1 Code: 79456-1 Heart Rate 1: 78 bpm Height: 6' Respiratory Rate: 20 bpm Temperature: 37 .8 (C) / 100.1 (F) Weight: 237 lbs 10/06/2014 Blood Pressure 1: 132/64 Code: 8480-6 BMI: 32.5 Code: 55966-7 Heart Rate 1: 88 bpm Height: 6' Respiratory Rate: 32 bpm SpO2: 94% Tempera ture: 36.8 (C) / 98.2 (F) Weight: 240 lbs 09/21/2014 Blood Pressure 1: 134/68 Code: 8480-6 BMI: 32.4 Code: 77345-5 Heart Rate 1: 96 bpm Height: 6' Respiratory Rate: 30 bpm Temperature: 36 .7 (C) / 98.1 (F) Weight: 239 lbs 09/08/2014 Blood Pressure 1: 128/74 Code: 8480-6 BMI: 32.4 Code: 94102-3 Heart Rate 1: 82 bpm Height: 6' Respiratory Rate: 28 bpm SpO2: 93% Tempera ture: 36.6 (C) / 97.8 (F) Weight: 239 lbs 09/02/2014 Blood Pressure 1: 164/78 Code: 8480-6 Heart Rate 1: 86 bpm Respiratory Rate: 22 bpm SpO2: 96% Temperature: 36.1 (C) / 97.0 (F) We ight: 239 lbs 08/10/2014 Blood Pressure 1: 152/60 Code: 8480-6 BMI: 32.8 Code: 36808-7 Heart Rate 1: 80 bpm Height: 6' [...] 1: 146/80 Code: 8480-6 BMI: 33.9 Code: 44373-7 Heart Rate 1: 80 bpm Height: 6' [...] 1: 148/78 Code: 8480-6 BMI: 30.5 Code: 26194-8 Heart Rate 1: 84 bpm Height: 6' Respiratory Rate: 28 bpm SpO2: 97% Tempera ture: 36.4 (C) / 97.5 (F) Weight: 225 lbs 08/06/2013 Blood Pressure 1: 158/70 Code: 8480-6 Heart Rate 1: 110 bpm Respiratory Rate: 22 bpm SpO2: 88% Temperature: 39.7 (C) / 103.4 (F) W eight: 07/16/2013 Blood Pressure 1: 148/82 Code: 8480-6 BMI: 31.9 Code: 13042-3 Heart Rate 1: 80 bpm Height: 6' Respiratory Rate: 20 bpm Temperature: 36 .6 (C) / 97.9 (F) Weight: 235 lbs 04/09/2013 Blood Pressure 1: 142/78 Code: 8480-6 BMI: 31.5 Code: 87568-6 Heart Rate 1: 88 bpm Height: 6' Respiratory Rate: 32 bpm SpO2: 95% Tempera ture: 37.0 (C) / 98.6 (F) Weight: 232 lbs 02/11/2013 Blood Pressure 1: 146/70 Code: 8480-6 Heart Rate 1: 88 bpm Respiratory Rate: 20 bpm Temperature: 36.8 (C) / 98.3 (F) Weight: 230 lbs 01/31/2013 Blood Pressure 1: 128/70 Code: 8480-6 BMI: 31.6 Code: 44392-0 Heart Rate 1: 84 bpm Height: 6' Respiratory Rate: 24 bpm SpO2: 92% Tempera ture: 36.7 (C) / 98.0 (F) Weight: 233 lbs 01/20/2013 Blood Pressure 1: 148/64 Code: 8480-6 BMI: 31.6 Code: 49574-6 Heart Rate 1: 68 bpm Height: 6' Temperature: 36.1 (C) / 97.0 (F) Weight: 233 lbs 12/19/2012 Blood Pressure 1: 128/68 Code: 8480-6 BMI: 32.0 Code: 99162-7 Heart Rate 1: 64 bpm Height: 6' Temperature: 36.7 (C) / 98.0 (F) Weight: 236 lbs 10/21/2012 Blood Pressure 1: 142/64 Code: 8480-6 BMI: 30.9 Code: 75879-4 Heart Rate 1: 74 bpm Height: 6' Temperature: 36.2 (C) / 97.1 (F) Weight: 228 lbs 09/18/2012 Blood Pressure 1: 126/60 Code: 8480-6 BMI: 31.3 Code: 57214-4 Heart Rate 1: 88 bpm Height: 6' Respiratory Rate: 20 bpm Temperature: 36 .5 (C) / 97.7 (F) Weight: 231 lbs 08/28/2012 Blood Pressure 1: 132/68 Code: 8480-6 BMI: 31.5 Code: 31502-5 Heart Rate 1: 92 bpm Height: 6' Respiratory Rate: 30 bpm SpO2: 94% Tempera ture: 37.1 (C) / 98.7 (F) Weight: 232 lbs 07/10/2012 Blood Pressure 1: 118/70 Code: 8480-6 BMI: 30.5 Code: 67972-2 Heart Rate 1: 72 bpm Height: 6' Respiratory Rate: 24 bpm SpO2: 96% Tempera ture: 36.7 (C) / 98.0 (F) Weight: 225 lbs 05/09/2012 Blood Pressure 1: 124/68 Code: 8480-6 BMI: 29.8 Code: 64965-2 Heart Rate 1: 72 bpm Height: 6' Respiratory Rate: 20 bpm Temperature: 36 .8 (C) / 98.2 (F) Weight: 220 lbs 10/02/2011 Blood Pressure 1: 140/82 Code: 8480-6 BMI: 30.7 Code: 56147-9 Heart Rate 1: 68 bpm Height: 6' Temperature: 36.7 (C) / 98.0 (F) Weight: 226 lbs 08/07/2011 Blood Pressure 1: 122/68 Code: 8480-6 BMI: 30.5 Code: 81629-3 Heart Rate 1: 72 bpm Height: 6' [...] 1: 140/78 Code: 8480-6 BMI: 31.9 Code: 81315-9 Heart Rate 1: 84 bpm Height: 6' Temperature: 36.6 (C) / 97.8 (F) Weight: 235 lbs 12/22/2009 Blood Pressure 1: 140/74 Code: 8480-6 BMI: 31.9 Code: 37974-6 Heart Rate 1: 94 bpm Height: 6' SpO2: 92% Temperature: 35.7 (C) / 96.2 (F) Weight: 235 lbs 12/13/2009 Blood Pressure 1: 146/80 Code: 8480-6 BMI: 33.0 Code: 81819-2 Heart Rate 1: 86 bpm Height: 6' [...] shot follow up 05/08/2019 follow up 04/07/2019 [facility] dizziness 03/24/2019 dizziness 03/21/2019 sore throat 03/13/2019 Patient finished zit hromax last night and has one dose of prednisone left follow up 03/10/2019 ER fw---patient cu rrently taking zithromax, prednisone and breathing treatments every two hours spasms/spasticity 02/26/2019 follow up 02/13/2019 follow up 01/14/2019 [facility] follow up 12/25/2018 cough 12/09/2018 here [...] fighting constantly with her. 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 follow up 05/29/2017 Discuss Low Back [...] nightly. Patient has just been discharged from [place] with Pneumonia. Currently on Levaquin once daily. [...] follow up 03/13/[address] [facility] on medication education for insulin [...] 12/13/2009 Encounters Encounter Performer Location Codes Date ([id number]) OFFICE/OUTPATIENT VISIT EST Diagnosis: Chronic obstructive pulmonary disease with (acute) exacerbation[ICD10: J44.1] Lita Ramirez [facility] [employer] CPT- 4: 17075 12/25/2019 ([id number]) OFFICE/OUTPATIENT VISIT EST Diagnosis: Noncompliance with diabetes treatment[ICD10: Z91.19] Diagnosis: Insomnia[ICD10: G47.00] Diagnosis: Pain in right knee[ICD10: M25.561] Lita Barakat [facility] CPT-4: 04609 12/22/2019 ([id number]) OFFICE/OUTPATIENT VISIT EST Diagnosis: Chronic respiratory failure with hypercapnia[ICD10: J96.12] Diagnosis: Chronic airway obstruction, not elsewhere classified[ICD10: J44.9] Diagnosis: Basal cell carcinoma, face[ICD10: C44.310] Lita CRAWFORD DonovanFerdinand [employer] [employer] CPT-4: 50176 11/12/2019 ([id number]) OFFICE/OUTPATIENT VISIT EST Diagnosis: Chronic obstructive pulmonary disease, unspecified[ICD10: J44.9] Diagnosis: Right thyroid nodule[ICD10: E04.1] Lita Ramirez ARMIN [employer] CPT-4: 71783 09/11/2019 ([id number]) OFFICE/OUTPATIENT VISIT EST Diagnosis: Chronic bronchitis[ICD10: J42] 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] Diagnosis: FLU VACCINE[ICD10: Z23] Lita CRAWFORD DonovanFerdinand [facility]AS[facility]ND [employer] CPT-4: 03623 08/07/2019 ([id number]) OFFICE/OUTPATIENT VISIT EST Diagnosis: Chronic obstructive pulmonary disease with (acute) exacerbation[ICD10: J44.1] Autumn Thadsebastian Ramirez [employer] [employer] CPT- 4: 38787 07/14/2019 ([id number]) OFFICE/OUTPATIENT VISIT EST Diagnosis: Primary insomnia[ICD10: F51.01] Diagnosis: Dyspepsia and other specified disorders of function of stomach[ICD10: K31.89] Lita BARAKAT DO [facility] CPT-4: 66251 07/01/2019 ([id number]) OFFICE/OUTPATIENT VISIT EST Diagnosis: Epigastric pain[ICD10: R10.13] Diagnosis: Nausea[ICD10: R11.0] Diagnosis: Weight loss[ICD10: R63.4] Lita AREVALO [facility] CPT-4: 17146 06/24/2019 ([id number]) OFFICE/OUTPATIENT VISIT EST Diagnosis: Chronic obstructive pulmonary disease, unspecified[ICD10: J44.9] Diagnosis: Chronic insomnia[ICD10: F51.04] Diagnosis: Anemia[ICD10: D64.9] Diagnosis: Diplopia[ICD10: H53.2] Diagnosis: [place][ICD10: F30.9] Lita BARAKAT DO [facility] CPT-4: 13863 06/17/2019 ([id number]) NURSE/OUTPATIENT VISIT EST Diagnosis: Vitamin B12 deficiency anemia, unspecified[ICD10: D51.9] Lita BARAKAT DO [facility] CPT-4: 85614 06/10/2019 ([id number]) NURSE/OUTPATIENT VISIT EST Diagnosis: Vitamin B12 deficiency anemia, unspecified[ICD10: D51.9] Lita BARAKAT DO [facility] CPT-4: 46219 06/02/2019 ([id number]) NURSE/OUTPATIENT VISIT EST Diagnosis: Vitamin B12 deficiency anemia, unspecified[ICD10: D51.9] Lita BARAKAT DO [facility] CPT-4: 84336 05/27/2019 ([id number]) NURSE/OUTPATIENT VISIT EST Diagnosis: Vitamin B12 deficiency anemia, unspecified[ICD10: D51.9] Lita BARAKAT DO [facility] CPT-4: 95054 05/12/2019 ([id number]) OFFICE/OUTPATIENT VISIT EST Diagnosis: Restless legs syndrome[ICD10: G25.81] Diagnosis: Primary insomnia[ICD10: F51.01] Diagnosis: Anemia, unspecified[ICD10: D64.9] Diagnosis: Type 2 diabetes mellitus with hyperglycemia[ICD10: E11.65] Diagnosis: Vitamin D deficiency, unspecified[ICD10: E55.9] Lita BARAKAT DO [facility] CPT-4: 54052 05/08/2019 ([id number]) OFFICE/OUTPATIENT VISIT EST Diagnosis: Pain in right knee[ICD10: M25.561] Diagnosis: Restless legs syndrome[ICD10: G25.81] Diagnosis: Insomnia, unspecified[ICD10: G47.00] Lita BARAKAT [facility] CPT-4: 53670 04/07/2019 ([id number]) NO CHARGE Diagnosis: Chronic obstructive pulmonary disease with (acute) exacerbation[ICD10: J44.1] Diagnosis: Dizziness and giddiness[ICD10: R42] Diagnosis: Generalized anxiety disorder[ICD10: F41.1] Autumn BARAKAT [facility] CPT-4: 15555 03/24/2019 ([id number]) OFFICE/OUTPATIENT VISIT EST Diagnosis: Chronic obstructive pulmonary disease with (acute) exacerbation[ICD10: J44.1] Diagnosis: Dizziness and giddiness[ICD10: R42] Autumn CONDE S. [facility] CPT-4: 49769 03/21/2019 ([id number]) OFFICE/OUTPATIENT VISIT EST Diagnosis: Candidal stomatitis[ICD10: B37.0] Lita Archerelvabrii GOODE Daja Ashley BARAKAT [facility] CPT-4: 67022 03/13/2019 ([id number]) OFFICE/OUTPATIENT VISIT EST Diagnosis: Chronic obstructive pulmonary disease with acute lower respiratory infection[ICD10: J44.0] Diagnosis: Restless legs syndrome[ICD10: G25.81] Lita Jasminbetty PIEDRA MARC Ashley [facility]AKAT [facility] CPT-4: 87586 03/10/2019 ([id number]) OFFICE/OUTPATIENT VISIT EST Diagnosis: Restless legs syndrome[ICD10: G25.81] Lita Jasminbetty PIEDRA MARC Ashley BARAKAT [facility] CPT-4: 62919 02/26/2019 ([id number]) OFFICE/OUTPATIENT VISIT EST Diagnosis: Primary insomnia[ICD10: F51.01] Diagnosis: Chronic obstructive pulmonary disease, unspecified[ICD10: J44.9] Lita BARAKAT DO [facility] CPT-4: 42940 02/13/2019 ([id number]) OFFICE/OUTPATIENT VISIT EST Diagnosis: Chronic obstructive pulmonary disease, unspecified[ICD10: J44.9] Diagnosis: Chronic respiratory failure with hypoxia[ICD10: J96.11] Diagnosis: Chronic respiratory failure with hypercapnia[ICD10: J96.12] Lita BARAKAT DO [facility] CPT-4: 47750 01/14/2019 ([id number]) OFFICE/OUTPATIENT VISIT EST Diagnosis: Chronic respiratory failure with hypoxia[ICD10: J96.11] Diagnosis: Patient's noncompliance with other medical treatment and regimen[ICD10: Z91.19] Diagnosis: Chronic obstructive pulmonary disease with (acute) exacerbation[ICD10: J44.1] Lita ALYLINE Ashley BARAKAT [facility] CPT- 4: 49742 12/25/2018 ([id number]) OFFICE/OUTPATIENT VISIT EST Diagnosis: Essential (primary) hypertension[ICD10: I10] Diagnosis: Type 2 diabetes mellitus with hyperglycemia[ICD10: E11.65] Diagnosis: Hypothyroidism, unspecified[ICD10: E03.9] Diagnosis: Hyperlipidemia, unspecified[ICD10: E78.5] Diagnosis: Acute recurrent maxillary sinusitis[ICD10: J01.01] Ines HERRMANNQUELINE Ashley BARAKAT [facility] CPT-4: 38721 12/09/2018 ([id number]) OFFICE/OUTPATIENT VISIT EST Diagnosis: Candidal stomatitis[ICD10: B37.0] Lita Jasminbetty Segura Ashley BARAKAT [facility] CPT-4: 70342 12/05/2018 ([id number]) OFFICE/OUTPATIENT VISIT EST Diagnosis: Acute recurrent sinusitis, unspecified[ICD10: J01.91] Diagnosis: Pain in right knee[ICD10: M25.561] Lita GONZALES Ashley BARAKAT [facility] CPT-4: 09944 10/23/2018 ([id number]) OFFICE/OUTPATIENT VISIT EST Diagnosis: Restless legs syndrome[ICD10: G25.81] Diagnosis: Basal cell carcinoma of skin of scalp and neck[ICD10: C44.41] Lita BARAKAT DO [facility] CPT-4: 99114 08/21/2018 ([id number]) OFFICE/OUTPATIENT VISIT EST Diagnosis: Chronic obstructive pulmonary disease with acute lower respiratory infection[ICD10: J44.0] Diagnosis: Restless legs syndrome[ICD10: G25.81] Lita BARAKAT DO [facility] CPT-4: 92369 08/07/2018 ([id number]) OFFICE/OUTPATIENT VISIT EST Diagnosis: Chronic obstructive pulmonary disease with acute lower respiratory infection[ICD10: J44.0] Lita BARAKAT DO [facility] CPT-4: 77643 05/23/2018 ([id number]) OFFICE/OUTPATIENT VISIT EST Diagnosis: Candidal stomatitis[ICD10: B37.0] Lita BARAKAT DO [facility] CPT-4: 95161 05/02/2018 ([id number]) OFFICE/OUTPATIENT VISIT EST Diagnosis: Candidal stomatitis[ICD10: B37.0] Diagnosis: Other retention of urine[ICD10: R33.8] Diagnosis: Chronic obstructive pulmonary disease with acute lower respiratory infection[ICD10: J44.0] Autumn BARAKAT [facility] CPT-4: 96403 04/29/2018 ([id number]) OFFICE/OUTPATIENT VISIT EST Diagnosis: Chronic obstructive pulmonary disease with acute lower respiratory infection[ICD10: J44.0] Lita BARAKAT DO [facility] CPT-4: 31788 04/22/2018 ([id number]) OFFICE/OUTPATIENT VISIT EST Diagnosis: Unilateral primary osteoarthritis, right knee[ICD10: M17.11] Diagnosis: Squamous cell carcinoma of skin, unspecified[ICD10: C44.92] Lita BARAKAT DO [facility] CPT-4: 38520 01/28/2018 ([id number]) OFFICE/OUTPATIENT VISIT EST Diagnosis: Pain in right knee[ICD10: M25.561] Diagnosis: 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] Lita BARAKAT DO [facility] CPT-4: 33129 01/23/2018 ([id number]) OFFICE/OUTPATIENT VISIT EST Diagnosis: Urinary tract infection, site not specified[ICD10: N39.0] Diagnosis: Chronic obstructive pulmonary disease with acute lower respiratory infection[ICD10: J44.0] Lita BARAKAT DO [facility] CPT-4: 72719 01/02/2018 ([id number]) OFFICE/OUTPATIENT VISIT EST Diagnosis: Chronic obstructive pulmonary disease with (acute) exacerbation[ICD10: J44.1] Autumn BARAKAT DO [facility] CPT- 4: 28652 12/28/2017 ([id number]) OFFICE/OUTPATIENT VISIT EST Diagnosis: Acute bronchitis, unspecified[ICD10: J20.9] Autumn BARAKAT DO [facility] CPT-4: 02013 12/21/2017 ([id number]) OFFICE/OUTPATIENT VISIT EST Diagnosis: Chronic obstructive pulmonary disease with acute lower respiratory infection[ICD10: J44.0] Diagnosis: Pain in right knee[ICD10: M25.561] Autumn BARAKAT DO [facility] CPT-4: 93465 12/17/2017 ([id number]) OFFICE/OUTPATIENT VISIT EST Diagnosis: Laceration without foreign body of right hand, sequela[ICD10: S61.411S] Diagnosis: Restless legs syndrome[ICD10: G25.81] Lita BARAKAT DO [facility] CPT-4: 72235 10/17/2017 OFFICE/OUTPATIENT VISIT EST Diagnosis: Chronic obstructive pulmonary disease with acute lower respiratory infection[ICD10: J44.0] Autumn BARAKAT DO [facility] CPT-4: 13131 08/02/2017 ([id number]) OFFICE/OUTPATIENT VISIT EST Diagnosis: PNEUMOCOCCAL VACCINE[ICD10: Z23] Lita BARAKAT DO [facility] CPT-4: 42255 07/24/2017 OFFICE/OUTPATIENT VISIT EST Diagnosis: Chronic obstructive pulmonary disease with (acute) exacerbation[ICD10: J44.1] Autumn Oneil LITA DonovanFerdinand [facility] CPT- 4: 05813 07/02/2017 OFFICE/OUTPATIENT VISIT EST Diagnosis: Low back pain[ICD10: M54.5] Ruchi Chanel Ramirez Filiberto BRANDIN [facility] CPT-4: 84458 05/29/2017 ([id number]) OFFICE/OUTPATIENT VISIT EST Diagnosis: Essential (primary) hypertension[ICD10: I10] Diagnosis: Hypothyroidism, unspecified[ICD10: E03.9] Diagnosis: Dizziness and giddiness[ICD10: R42] Diagnosis: Other abnormality of red blood cells[ICD10: R71.8] Diagnosis: Contracture of muscle, unspecified site[ICD10: M62.40] Lita CRAWFORD DonovanFerdinand [facility] CPT-4: 26183 04/17/2017 OFFICE/OUTPATIENT VISIT EST Diagnosis: Pain in left shoulder[ICD10: M25.512] Ruchi TRAN DonovanFerdinand [facility] CPT-4: 07135 01/29/2017 ([id number]) OFFICE/OUTPATIENT VISIT EST Diagnosis: Anemia, unspecified[ICD10: D64.9] Lita Segura DonovanFerdinand [facility] CPT-4: 95109 12/27/2016 ([id number]) OFFICE/OUTPATIENT VISIT EST Diagnosis: Other fatigue[ICD10: R53.83] Diagnosis: Other iron deficiency anemias[ICD10: D50.8] Lita CRAWFORD DonovanFerdinand [facility] CPT-4: 44813 12/21/2016 ([id number]) OFFICE/OUTPATIENT VISIT EST Diagnosis: Anemia, unspecified[ICD10: D64.9] Diagnosis: Other fatigue[ICD10: R53.83] Diagnosis: Restless legs syndrome[ICD10: G25.81] Lita TRAN DonovanFerdinand [facility] CPT-4: 01121 12/14/2016 ([id number]) OFFICE/OUTPATIENT VISIT EST Diagnosis: Anemia, unspecified[ICD10: D64.9] Diagnosis: Other abnormality of red blood cells[ICD10: R71.8] Lita BARAKAT DO [facility] CPT-4: 59493 12/12/2016 ([id number]) OFFICE/OUTPATIENT VISIT EST Diagnosis: Pneumonia, unspecified organism[ICD10: J18.9] Diagnosis: Restless legs syndrome[ICD10: G25.81] Magda BARAKAT DO [facility] CPT-4: 33579 11/14/2016 ([id number]) OFFICE/OUTPATIENT VISIT EST Diagnosis: Candidal stomatitis[ICD10: B37.0] Lita BARAKAT [facility] CPT-4: 75105 10/31/2016 ([id number]) OFFICE/OUTPATIENT VISIT EST Diagnosis: Acute upper respiratory infection, unspecified[ICD10: J06.9] Diagnosis: Personal history of pneumonia (recurrent)[ICD10: Z87.01] Magda ALYLINE Ashley BARAKAT [facility] CPT-4: 21485 10/03/2016 ([id number]) OFFICE/OUTPATIENT VISIT EST Diagnosis: Restless legs syndrome[ICD10: G25.81] Diagnosis: Insomnia, unspecified[ICD10: G47.00] Magda ALY JESSICA Ashley BARAKAT [facility] CPT-4: 49732 09/04/2016 ([id number]) OFFICE/OUTPATIENT VISIT EST Diagnosis: Restless legs syndrome[ICD10: G25.81] Diagnosis: Primary insomnia[ICD10: F51.01] Lita BARAKAT DO [facility] CPT-4: 82952 08/10/2016 OFFICE/OUTPATIENT VISIT EST Diagnosis: Toxic gastroenteritis and colitis[ICD10: K52.1] Diagnosis: Dizziness and giddiness[ICD10: R42] Diagnosis: Headache[ICD10: R51] Diagnosis: Restless legs syndrome[ICD10: G25.81] Lita BARAKAT [facility] CPT-4: 24072 07/06/2016 ([id number]) OFFICE/OUTPATIENT VISIT EST Diagnosis: Chest pain, unspecified[ICD10: R07.9] Diagnosis: Dyspnea, unspecified[ICD10: R06.00] Magda HERRMANNTANA CONDE Ashley BARAKAT 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 CPT-4: 09000 06/13/2016 ([id number]) OFFICE/OUTPATIENT VISIT EST Diagnosis: Chest pain, unspecified[ICD10: R07.9] Diagnosis: Other forms of dyspnea[ICD10: R06.09] Diagnosis: Shortness of breath[ICD10: R06.02] Diagnosis: Other fatigue[ICD10: R53.83] Magda BARAKAT [facility] CPT-4: 16135 06/01/2016 ([id number]) OFFICE/OUTPATIENT VISIT EST Diagnosis: Unspecified hearing loss, left ear[ICD10: H91.92] Diagnosis: Other specified disorders of Eustachian tube, left ear[ICD10: H69.82] Magda BARAKAT [facility] CPT-4: 44197 11/2015 ([id number]) OFFICE/OUTPATIENT VISIT EST Diagnosis: Impacted cerumen, bilateral[ICD10: H61.23] Diagnosis: DM W/O COMPLICATION TYPE I, 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: E10.9] Diagnosis: Generalized anxiety disorder[ICD10: F41.1] Lita BARAKAT 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 CPT - 4: 69201 03/13/2016 ([id number]) OFFICE/OUTPATIENT VISIT EST Diagnosis: Type 2 diabetes mellitus with hyperglycemia[ICD10: E11.65] Diagnosis: Hyperlipidemia, unspecified[ICD10: E78.5] Diagnosis: Essential (primary) hypertension[ICD10: I10] Diagnosis: Chronic obstructive pulmonary disease, unspecified[ICD10: J44.9] Diagnosis: Testicular hypofunction[ICD10: E29.1] Diagnosis: Male erectile dysfunction, unspecified[ICD10: N52.9] Diagnosis: Anemia, unspecified[ICD10: D64.9] Lita Barakat RUSSEL Segura Ashley BARAKAT [employer] CPT-4: 99205 03/06/2016 ([id number]) OFFICE/OUTPATIENT VISIT EST Diagnosis: Type 2 diabetes mellitus with hyperglycemia[ICD10: E11.65] Diagnosis: Hyperlipidemia, unspecified[ICD10: E78.5] Diagnosis: Chronic obstructive pulmonary disease, unspecified[ICD10: J44.9] Diagnosis: Male erectile dysfunction, unspecified[ICD10: N52.9] Lita BARAKAT [employer] CPT-4: 34054 03/02/2016 ([id number]) OFFICE/OUTPATIENT VISIT EST Diagnosis: Pain in right foot[ICD10: M79.671] Magdajohnny GONZALES Ashley BARAKAT [facility] CPT-4: 99654 02/14/2016 OFFICE/OUTPATIENT VISIT EST Diagnosis: Generalized anxiety disorder[ICD10: F41.1] Lita ALYLINE Ashley BARAKAT [employer] CPT-4: 69417 01/31/2016 ([id number]) OFFICE/OUTPATIENT VISIT EST Diagnosis: Generalized anxiety disorder[ICD10: F41.1] Lita BARAKAT [employer] CPT-4: 35216 12/30/2015 ([id number]) OFFICE/OUTPATIENT VISIT EST Diagnosis: Localized swelling, mass and lump, neck[ICD10: R22.1] Lita BARAKAT [employer] CPT-4: 34124 12/16/2015 OFFICE/OUTPATIENT VISIT EST Diagnosis: Localized enlarged lymph nodes[ICD10: R59.0] Diagnosis: Otalgia, left ear[ICD10: H92.02] Stephanie VanAshleyrachellejose LITA Ashley BARAKAT [employer] [facility] CPT-4: 69599 12/06/2015 OFFICE/OUTPATIENT VISIT EST Diagnosis: Localized enlarged lymph nodes[ICD10: R59.0] Diagnosis: Squamous cell carcinoma of skin, unspecified[ICD10: C44.92] Diagnosis: Actinic keratosis[ICD10: L57.0] Stephanie AlexisAshleyrachellejose LITA BARAKAT [facility] CPT-4: 17182 11/15/2015 OFFICE/OUTPATIENT VISIT EST Diagnosis: Cellulitis of left lower limb[ICD10: L03.116] Diagnosis: Encounter for examination and observation for other specified reasons[ICD10: Z04.8] Diagnosis: Chronic obstructive pulmonary disease, unspecified[ICD10: J44.9] Stephanie BARAKAT [facility] CPT-4: 61290 07/22/2015 OFFICE/OUTPATIENT VISIT EST Diagnosis: Other specified joint disorders, left knee[ICD10: M25.862] Diagnosis: Cellulitis of left lower limb[ICD10: L03.116] Diagnosis: Other fatigue[ICD10: R53.83] Diagnosis: Hyperlipidemia, unspecified[ICD10: E78.5] Stephanie BARAKAT [facility] CPT-4: 47487 07/01/2015 OFFICE/OUTPATIENT VISIT EST Diagnosis: Pain in left knee[ICD10: M25.562] Diagnosis: Cellulitis of left lower limb[ICD10: L03.116] Diagnosis: Other specified joint disorders, left knee[ICD10: M25.862] Stephanie BARAKAT [facility] CPT-4: 01901 06/28/2015 OFFICE/OUTPATIENT VISIT EST Diagnosis: PREPATELLAR BURSITIS[ICD9: 726.65] Diagnosis: Cellulitis of knee, left[ICD9: 682.6] Stephanie BARAKAT [facility] CPT-4: 25276 06/09/2015 ([id number]) OFFICE/OUTPATIENT VISIT EST Diagnosis: PREPATELLAR BURSITIS[ICD9: 726.65] Diagnosis: Cellulitis of knee, left[ICD9: 682.6] Lita Gasper BARAKAT [facility] CPT-4: 25025 06/07/2015 OFFICE/OUTPATIENT VISIT EST Diagnosis: Cellulitis of knee, left[ICD9: 682.6] Stephanie BARAKAT DO [facility] CPT-4: 84938 06/03/2015 ([id number]) OFFICE/OUTPATIENT VISIT EST Diagnosis: DM W/O COMPLICATION TYPE II, UNCONTROLLED[ICD9: 250.02] Diagnosis: COPD[ICD9: 496] Lita BARAKAT [facility] CPT- 4: 35062 06/01/2015 ([id number]) OFFICE/OUTPATIENT VISIT EST Diagnosis: COPD[ICD9: 496] Diagnosis: DYSPNEA[ICD9: 786.09] Diagnosis: DM W/O COMPLICATION TYPE II, UNCONTROLLED[ICD9: 250.02] Diagnosis: Actinic keratosis[ICD9: 702.0] Lita BARAKAT [facility] CPT-4: 58091 02/25/2015 ([id number]) OFFICE/OUTPATIENT VISIT EST Diagnosis: ASTHMA NOS[ICD9: 493.90] Diagnosis: COPD[ICD9: 496] Diagnosis: DM W/O COMPLICATION TYPE II, UNCONTROLLED[ICD9: 250.02] Lita BARAKAT [facility] CPT-4: 45839 10/27/2014 OFFICE/OUTPATIENT VISIT EST Diagnosis: DYSPNEA[ICD9: 786.09] Diagnosis: COPD[ICD9: 496] Lita BARAKAT [facility] CPT- 4: 04955 10/06/2014 ([id number]) OFFICE/OUTPATIENT VISIT EST Diagnosis: PNEUMONIA, ORGANISM[ICD9: 486] Diagnosis: COPD[ICD9: 496] Diagnosis: DYSPNEA[ICD9: 786.09] Liat BARAKAT [facility] CPT-4: 48350 09/21/2014 OFFICE/OUTPATIENT VISIT EST Diagnosis: PNEUMONIA, ORGANISM[ICD9: 486] Diagnosis: DYSPNEA[ICD9: 786.09] Diagnosis: COUGH[ICD9: 786.2] Stephanie BARAKAT [facility] CPT-4: 74342 09/08/2014 OFFICE/OUTPATIENT VISIT EST Diagnosis: COPD with exacerbation[ICD9: 491.21] Diagnosis: COUGH[ICD9: 786.2] Diagnosis: DYSPNEA[ICD9: 786.09] Stephanie BARAKAT [facility] CPT-4: 26688 09/02/2014 ([id number]) OFFICE/OUTPATIENT VISIT EST Diagnosis: DM W/O COMPLICATION TYPE II, UNCONTROLLED[ICD9: 250.02] Lita BARAKAT [facility] CPT-4: 50237 08/27/2014 ([id number]) OFFICE/OUTPATIENT VISIT EST Diagnosis: DM W/O COMPLICATION TYPE II, UNCONTROLLED[ICD9: 250.02] Diagnosis: HYPERLIPIDEMIA NEC/NOS[ICD9: 272.4] Diagnosis: HYPERTENSION[ICD9: 401.9] Diagnosis: COPD[ICD9: 496] Diagnosis: FLU VACCINE[ICD10: Z23] Lita PABLO [facility] CPT-4: 99871 08/05/2014 ([id number]) OFFICE/OUTPATIENT VISIT EST Diagnosis: COPD[ICD9: 496] Diagnosis: Lumbar degenerative disc disease[ICD9: 722.52] Lita BARAKAT [facility] CPT-4: 95303 05/05/2014 OFFICE/OUTPATIENT VISIT EST Diagnosis: DYSPNEA[ICD9: 786.09] Diagnosis: COPD[ICD9: 496] [facility]: 46847 03/24/2014 ([id number]) OFFICE/OUTPATIENT VISIT EST Diagnosis: COPD[ICD9: 496] Diagnosis: DYSPNEA[ICD9: 786.09] Lita [facility]AKAT [facility] CPT-4: 27898 03/10/2014 OFFICE/OUTPATIENT VISIT EST Diagnosis: Subacromial bursitis[ICD9: 726.19] Diagnosis: Chronic low back pain[ICD9: 724.2] Diagnosis: Lumbar degenerative disc disease[ICD9: 722.52] [facility]: 22791 12/16/2013 ([id number]) OFFICE/OUTPATIENT VISIT EST Diagnosis: PHARYNGITIS, ACUTE[ICD9: 462] Diagnosis: COPD[ICD9: 496] Lita BARAKAT [facility] CPT- 4: 66681 10/09/2013 OFFICE/OUTPATIENT VISIT EST Diagnosis: COPD[ICD9: 496] Diagnosis: Acute exacerbation of chronic obstructive pulmonary disease (COPD)[ICD9: 491.21] Ruchi Buchanan [facility] CPT-4: 72703 09/18/2013 ([id number]) OFFICE/OUTPATIENT VISIT EST Diagnosis: PNEUMONIA, ORGANISM[ICD9: 486] Diagnosis: DM W/O COMPLICATION TYPE II[ICD9: 250.00] Lita [facility]WFORD [facility]: 33166 08/13/2013 ([id number]) OFFICE/OUTPATIENT VISIT EST Diagnosis: DM W/O COMPLICATION TYPE II, UNCONTROLLED[ICD9: 250.02] Diagnosis: HYPERLIPIDEMIA NEC/NOS[ICD9: 272.4] Diagnosis: HYPERTENSION[ICD9: 401.9] Diagnosis: DYSPNEA[ICD9: 786.09] Diagnosis: Family history of CABG[ICD9: V17.49] Lita LOPEZ Ferdinand [facility] CPT-4: 72882 07/16/2013 ([id number]) OFFICE/OUTPATIENT VISIT EST Diagnosis: DM W/O COMPLICATION TYPE II, UNCONTROLLED[ICD9: 250.02] Diagnosis: HYPERLIPIDEMIA NEC/NOS[ICD9: 272.4] Diagnosis: HYPERTENSION[ICD9: 401.9] Lita Ramirez [facility] CPT-4: 70192 06/25/2013 OFFICE/OUTPATIENT VISIT EST Diagnosis: COUGH[ICD9: 786.2] Diagnosis: COPD[ICD9: 496] Kimberly Ramirez [facility] CPT- 4: 13738 04/09/2013 ([id number]) OFFICE/OUTPATIENT VISIT EST Diagnosis: Muscle spasm[ICD9: 728.85] Diagnosis: ARTHRALGIA-MULTIPLE SITES[ICD9: 719.49] Lita Ramirez [facility] CPT-4: 86506 02/11/2013 OFFICE/OUTPATIENT VISIT EST Diagnosis: COPD with exacerbation[ICD9: 491.21] Diagnosis: BRONCHITIS, ACUTE[ICD9: 466.0] Ruchi Streeter [facility] CPT-4: 99812 01/31/2013 OFFICE/OUTPATIENT VISIT EST Diagnosis: COUGH[ICD9: 786.2] Diagnosis: PHARYNGITIS, ACUTE[ICD9: 462] Diagnosis: SINUSITIS, ACUTE[ICD9: 461.9] Lita BARAKAT [facility] CPT-4: 80126 01/20/2013 OFFICE/OUTPATIENT VISIT EST Diagnosis: DIZZINESS/VERTIGO[ICD9: 780.4] Lita BARAKAT [facility] CPT-4: 89404 12/19/2012 OFFICE/OUTPATIENT VISIT EST Diagnosis: Skin lesion of left arm[ICD9: 709.9] Diagnosis: Otitis externa[ICD9: 380.10] Diagnosis: PHARYNGITIS, ACUTE[ICD9: 462] Lita BARAKAT [facility] CPT-4: 94434 10/21/2012 ([id number]) OFFICE/OUTPATIENT VISIT EST Diagnosis: DM W/O COMPLICATION TYPE II, UNCONTROLLED[ICD9: 250.02] Diagnosis: HYPERLIPIDEMIA NEC/NOS[ICD9: 272.4] Diagnosis: HYPERTENSION[ICD9: 401.9] Lita AREVALO [facility] CPT-4: 40133 09/19/2012 ([id number]) OFFICE/OUTPATIENT VISIT EST Diagnosis: DM W/O COMPLICATION TYPE II, UNCONTROLLED[ICD9: 250.02] Diagnosis: HYPERLIPIDEMIA NEC/NOS[ICD9: 272.4] Diagnosis: COPD[ICD9: 496] Lita BARAKAT [facility] CPT- 4: 94503 09/18/2012 ([id number]) OFFICE/OUTPATIENT VISIT EST Diagnosis: BRONCHITIS, ACUTE[ICD9: 466.0] Diagnosis: SINUSITIS, ACUTE[ICD9: 461.9] Lita BARAKAT [facility] CPT-4: 91594 08/28/2012 ([id number]) OFFICE/OUTPATIENT VISIT EST Diagnosis: COPD[ICD9: 496] Diagnosis: DYSPNEA[ICD9: 786.09] Diagnosis: VAC STREP PNEUMONIAE-FLU (Medicare)[ICD9: V06.6] [facility]: 89078 07/10/2012 ([id number]) OFFICE/OUTPATIENT VISIT EST Diagnosis: DM W/O COMPLICATION TYPE II, UNCONTROLLED[ICD9: 250.02] Diagnosis: HYPERTENSION[ICD9: 401.9] Diagnosis: HYPERLIPIDEMIA NEC/NOS[ICD9: 272.4] Diagnosis: DIZZINESS/VERTIGO[ICD9: 780.4] Lita BARAKAT DO [facility] CPT-4: 12119 05/09/2012 ([id number]) OFFICE/OUTPATIENT VISIT EST Diagnosis: DM W/O COMPLICATION TYPE II, UNCONTROLLED[ICD9: 250.02] Diagnosis: HYPERLIPIDEMIA NEC/NOS[ICD9: 272.4] Diagnosis: HYPERTENSION[ICD9: 401.9] Diagnosis: MALAISE AND FATIGUE[ICD9: 780.79] Lita BARAKAT DO [facility] CPT-4: 20630 05/06/2012 OFFICE/OUTPATIENT VISIT EST Diagnosis: COUGH[ICD9: 786.2] Diagnosis: SINUSITIS, ACUTE[ICD9: 461.9] Diagnosis: PHARYNGITIS, ACUTE[ICD9: 462] Lita BARAKAT DO [facility] CPT-4: 24129 10/02/2011 OFFICE/OUTPATIENT VISIT EST Diagnosis: DM W/O COMPLICATION TYPE II, UNCONTROLLED[ICD9: 250.02] Diagnosis: HYPERLIPIDEMIA NEC/NOS[ICD9: 272.4] Diagnosis: HYPERTENSION[ICD9: 401.9] Diagnosis: COPD[ICD9: 496] Lita BARAKAT DO [facility] CPT- 4: 52200 08/07/2011 OFFICE/OUTPATIENT VISIT EST Lita ARCHER NDER [facility] CPT- 4: 44587 04/03/2011 ([id number]) OFFICE/OUTPATIENT VISIT EST Lita Jasminelvabrii PALACIOS SFerdinand ARCHERNDER DO [facility] CPT-4: 45289 01/18/2011 ([id number]) OFFICE/OUTPATIENT VISIT EST Lita Jasminelvabrii PALACIOS SFerdinand ARCHERNDER DO [facility] CPT-4: 22743 12/19/2010 ([id number]) OFFICE/OUTPATIENT VISIT, EST Lita Jasminelvabrii ALIZE RAJESHJESSICA SFerdinand ARCHERNDER DO [facility] CPT-4: 71311 04/05/2010 ([id number]) OFFICE/OUTPATIENT VISIT, EST Lita Jasminbetty HERRMANN RAJESHJESSICA Ashley ARCHERNDER [facility] CPT-4: 43999 01/13/2010 ([id number]) OFFICE/OUTPATIENT VISIT, [facility] CPT-4: 50228 12/23/2009 ([id number]) OFFICE/OUTPATIENT VISIT, EST Lita VALERIO CPT-4: 55521 12/22/2009 ([id number]) OFFICE/OUTPATIENT VISIT, SUZANNE VALERIO CPT-4: 14029 12/13/2009 Plan of Care Planned Activity Notes Codes Status Date Visit Diagnosis Plan: Chronic obstructiv e pulmonary disease with (acute) exacerbation Discussion: Solumedrol 125mg IM Continue SVNs every 4hrs Prednisone for 1 week COVID-19 precautions ICD-9 : 491.21 ICD-10 : J44.1 12/25/2019 Appointment: Lita Barakat WPtel: [address] [place] [address] FOLLOW UP 12/25/2019 Patient Education: prednisone- [employer] Coupon [id number] https://www.[employer]/resources/getResource/61/[email or web address] Completed 12/25/2019 Visit Diagnosis Plan: Noncompliance with [...] : M25.561 12/22/2019 Appointment: Lita Barakat WPtel: [facility] TELEMEDICINE 12/22/2019 Patient Education: baclofen- [employer] Coupon [id number] https://www.[employer]/resources/getResource/61/[email or web address] Completed 12/22/2019 Visit Diagnosis Plan: Chronic respiratory [...] C44.310 11/12/2019 Appointment: Lita Barakat WPtel: [address] [place], [place] [id number] ACUTE ILLNESS 11/12/2019 Care Plan: Referral Order SNOMED-CT : 30 [id number] Pending 11/12/2019 Care Plan: Referral Order SNOMED-CT : 30 7940006 Pending 11/12/2019 Visit Diagnosis Plan: Right thyroid nodule Discussion: Check thyroid US ICD-9 : 241.0 ICD-10 : E04.1 09/11/2019 Visit Diagnosis Plan: Chronic obstructive pulmonary di sease, unspecified Discussion: Start Pulmonary Rehab Reviewed results of CT of chest ordered by pulmonology Follow Up: 3 months ICD-9 : 496 ICD-10 : J44.9 09/11/2019 Appointment: Lita Barakat [facility]el[facility] [facility] 09/11/2019 Care Plan: US EXAM OF HEAD AND NECK LOIN C : 25484-0 Pending 09/11/2019 Visit Diagnosis Plan: Chronic bronchitis Discussion: A ugmentin for 10 days ICD-9 : 491.9 ICD-10 : J42 08/07/2019 Appointment: Lita Barakat WPtel: [address] [place] [address] ACUTE ILLNESS 08/07/2019 Visit Diagnosis Plan: Chronic [...] him that overuse of symbicort can cause 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 call office later this week with worsening or no improvement ICD-9 : 491.21 ICD-10 : J44.1 07/14/2019 Appointment: Autumn Oneil [address] [place] [address] ACUTE ILLNESS 07/14/2019 Visit Diagnosis Plan: Dyspepsia [...] : F51.01 07/01/2019 Appointment: Lita Barakat WPtel: [facility] FOLLOW UP 07/01/2019 Care Plan: CT ABDOMEN W/O DYE LOINC : 36 103-0 Pending 07/01/2019 Care Plan: Referral Order SNOMED-CT : 30 [id number] Pending 07/01/2019 Visit Diagnosis Plan: Weight loss [...] R10.13 06/24/2019 Appointment: Lita Barakat WPtel[facility] [address] [facility] [facility] ACUTE [facility]LLNESS 06/24/2019 Patient Education: Seroquel- [employer] Coupon [id number] https://www.[employer]/samplemd/resources/getResource/61/2jh6f2e2-[email or web address] Completed 06/24/2019 Patient Education: ondansetron HCl- [employer] Coupon [id number] https://www.[employer]/sample[employer]ip[employer]at/resources/getResource/61/[email or web address]-m7 Completed 06/24/2019 Care Plan: US EXAM ABDOM COMPLETE LOINC : 42896-8 Pending 06/24/2019 Visit Diagnosis Plan: Chronic insomnia [...] : H53.2 06/17/2019 Appointment: Lita Barakat WPtel: [facility] [facility] FOLLOW UP 06/17/2019 Appointment: Lita Barakat WPtel: [address] [place], [place] [phone] US INJECTION 06/10/2019 Appointment: Lita Barakat WPtel: [address] [place], [place] [phone] US INJECTION 06/02/2019 Appointment: Lita Barakat WPtel: [address] [place], [place] [phone] US INJECTION 05/27/2019 Appointment: Lita Barakat WPtel: [address] [place], [place] [phone] US INJECTION 05/12/2019 Visit Diagnosis Plan: Anemia, [...] : E55.9 05/08/2019 Appointment: Lita Barakat WPtel: [address] [place], [place] [phone] FOLLOW UP 05/08/2019 Visit Diagnosis Plan: Pain in right knee Discussion: S top tramadol and tylenol q HS Trial of Hydrocodone 10/325mg po q HS Recheck 1month ICD-9 : 719.46 ICD-10 : M25.561 04/07/2019 Appointment: Lita Barakat WPtel: [phone] [id number] Hospital Follow Up 04/07/2019 Visit Diagnosis Plan: [...] F41.1 03/24/2019 Appointment: Autumn Oneil [address] [facility] ACUTE ILLNESS 03/24/2019 Patient Education: hydroxyzine HCl- [employer] Coupon [id number] Completed 03/24/2019 Patient Education: pantoprazole- [employer] Coupon [id number] Completed 03/24/2019 Visit Diagnosis Plan: Chronic obstructiv e pulmonary disease with (acute) exacerbation Discussion: 90 mg solumedrol given in of fice. patient's portable oxygen tank was empty. [id number] patient on importance of monitoring oxygen tank [...] : R42 03/21/2019 Appointment: Autumn Oneil [address] [place] [id number] ACUTE ILLNESS 03/21/2019 Patient Education: ipratropium-albuterol- [employer] C oupon [id number] https://www.[employer].com/samplemd/resources/getResource/61/[email or web address]-56 Completed 03/21/2019 Visit Diagnosis Plan: Chronic obstructiv [...] 03/13/2019 Appointment: Lita Barakat WPtel: [address] [facility] ACUTE ILLNESS 03/13/2019 Patient Education: losartan- [employer] Coupon [id number] Completed 03/13/2019 Patient Education: nystatin- [employer] Coupon [id number] Completed 03/13/2019 Patient Education: fluconazole- [employer] Coupon [id number] Completed 03/13/2019 Visit Diagnosis Plan: Chronic obstructiv [...] G25.81 03/10/2019 Appointment: Lita Barakat WPtel: [address] [...] G25.81 02/26/2019 Appointment: Lita Barakat WPtel: [address] [place], [place] [phone] ACUTE ILLNESS 02/26/2019 Visit Diagnosis Plan: Primary insomnia Discussion: Tri al of doxepin 10-20mg po q HS prn sleep ICD-9 : 780.52 ICD-10 : F51.01 02/13/2019 Visit Diagnosis Plan: Chronic obstructive pulmonary di sease, unspecified Discussion: Stable Discussed trip to [place]--will get oxygen setup through [facility] ICD-9 : 496 ICD-10 : J44.9 02/13/2019 Appointment: Lita Barakat WPtel: [address] [place], [place] [phone] FOLLOW UP 02/13/2019 Patient Education: doxepin- [employer] [id number] [email or web address] Completed 02/13/2019 Appointment: Lita Barakat WPtel: [address] [place], [place] [phone] CANCELED 01/20/2019 Visit Diagnosis Plan: Chronic obstructive pulmonary di sease, unspecified Discussion: Stable on oxygen Given Symbicort samples Follow Up: 1 months ICD-9 : 496 ICD-10 : J44.9 01/14/2019 Appointment: Lita Barakat WPtel: [address] [place], [place] [phone] Hospital Follow Up 01/14/2019 Visit Diagnosis Plan: [...] : J96.11 12/25/2018 Appointment: Lita Barakat WPtel: [address] [place], [place] [id number] Hospital Follow Up 12/25/2018 Appointment: Lita Barakat WPtel: [address] [place], [place] [phone] CANCELED 12/23/2018 Appointment: Ines Banerjee [address] [place] [address] CANCELED 12/20/2018 Visit Diagnosis Plan: Acute recurrent [...] ICD-10 : I10 12/09/2018 Appointment: Ines Banerjee [address] [place], [place] [phone] LAB 12/09/2018 Patient Education: cefdinir- [employer] Coupon [id number] https://www.[employer].Scalado/samplemd/resources/getResource/61/[email or web address]-16oz-5364-91 Completed 12/09/2018 Visit Diagnosis Plan: Candidal stomatitis Discussion: Diflucan for 5 days Hold atorvastatin while taking ICD-9 : 112.0 ICD-10 : B37.0 12/05/2018 Appointment: Lita Barakat WPtel: [address] [place], [place] [phone] ACUTE ILLNESS 12/05/2018 Patient Education: fluconazole- [employer] Coupon [phone] https://www.[employer]/resources/getResource/61/[email or web address] Completed 12/05/2018 Appointment: Lita Barakat WPtel: [facility] NO SHOW 11/11/2018 Visit Plan: Saline nasal [...] J01.91 10/23/2018 Appointment: Lita Barakat WPtel: [address] [place], [place] [phone] ACUTE ILLNESS 10/23/2018 Patient Education: prednisone- [employer] Coupon [phone] https://www.[employer]/resources/getResource/61/ba9cg434-yurc-2327-60 Completed 10/23/2018 Care Plan: A1C HPLC LOINC : 73722-8 Pending 09/10/2018 Care Plan: COMPREHEN METABOLIC PANEL [place] NC : 68571-8 Pending 09/10/2018 Care Plan: CBC Pending 09/10/2018 [...] : G25.81 08/21/2018 Appointment: Lita Barakat WPtel: [address] [place] [address] ACUTE ILLNESS 08/21/2018 Care Plan: Referral Order SNOMED-CT : 30 6701323 Pending 08/21/2018 Visit Diagnosis Plan: Chronic obstructiv [...] : G25.81 08/07/2018 Appointment: Lita Barakat WPtel: [address] [place] [address] FOLLOW UP 08/07/2018 Appointment: Lita Barakat WPtel: [address] [place], [place] [phone] 07/18/18 1210---see note in chart (km) CANCELED 07/18/2018 Visit Diagnosis Plan: Chronic obstructiv e pulmonary disease with acute lower respiratory infection Discussion: Solumedrol 125mg IM Change t o trelagy 1 inhalation daily Use SVNs with albuterol q4hrs To ER this weekend if worsens Monitor weight/swelling ICD-9 : 496 ICD-10 : J44.0 05/23/2018 Appointment: Lita Barakat WPtel: [address] [place], [place] [phone] ACUTE ILLNESS 05/23/2018 Patient Education: Patient Medication Summary Completed 05/23/2018 Visit Diagnosis Plan: Candidal stomatitis Discussion: Diflucan for 7 more days--hold atrovastatin while taking ICD-9 : 112.0 ICD-10 : B37.0 05/02/2018 Appointment: Lita Barakat WPtel: [address] [place] [address] FOLLOW UP 05/02/2018 Patient Education: Patient Medication [...] ICD-10 : J44.0 04/29/2018 Appointment: Autumn Oneil [address] [place] [address] ACUTE ILLNESS 04/29/2018 Patient Education: Patient Medication [...] : J44.0 04/22/2018 Appointment: Lita Barakat WPtel: [address] [place], [place] [phone] Hospital Follow Up 04/22/2018 Patient Education: Patient Medication Summary Completed 04/22/2018 Appointment: Lita Barakat WPtel: [address] [place], [place] [phone] 04/09/18 1640---see message in chart from today [...] : M17.11 01/28/2018 Appointment: Lita Barakat WPtel: [address] [place], [place] [phone] ACUTE ILLNESS 01/28/2018 Patient Education: Patient Medication Summary Completed 01/28/2018 Care Plan: Referral Order SNOMED-CT : 30 4329682 Pending 01/28/2018 Care Plan: Referral Order SNOMED-CT : 30 7109123 Pending 01/28/2018 Visit Diagnosis Plan: Functional dyspepsia Discussion: Protonix Call in 1 week on how doing ICD-9 : 536.8 ICD-10 : K30 01/23/2018 Visit Diagnosis Plan: Pain in right knee Discussion: T opical voltaren gel QID ICD-9 : 719.46 ICD-10 : M25.561 01/23/2018 Appointment: Lita Barakat WPtel: [address] [place], [place] [phone] ACUTE ILLNESS 01/23/2018 Patient Education: Patient Medication [...] N39.0 01/02/2018 Appointment: [facility]el[facility] [address] [facility] [facility] 01/02/2018 Patient Education: Patient Medication [...] ICD-10 : J44.1 12/28/2017 Appointment: Autumn Oneil [address] [place], [place] [phone] Consult 12/28/2017 Patient Education: Patient Medication [...] ICD-10 : J20.9 12/21/2017 Appointment: Autumn Oneil [address] [place] [address] ACUTE ILLNESS 12/21/2017 Patient Education: Patient Medication Summary Completed 12/21/2017 Care Plan: X-RAY EXAM OF KNEE 1 OR 2 right [place] NC : 56875-5 Pending 12/18/2017 Visit Diagnosis Plan: Pain in [...] : J44.0 12/17/2017 Appointment: Autumn Oneil [address] [place] [address] ACUTE ILLNESS 12/17/2017 Patient Education: Patient Medication Summary Completed 12/17/2017 Visit Diagnosis Plan: Unilateral primary osteoarthriti s, right knee Discussion: Right knee injection as above Warned of elevated BS after injection ICD-9 : 715.96 ICD-10 : M17.11 12/11/2017 Appointment: Lita Barakat WPtel: [address] [phone] OFFICE SURGERY 12/11/2017 Patient Education: Patient Medication Summary Completed 12/11/2017 Visit Diagnosis Plan: Actinic keratosis Discussion: Cr yotherapy as above If persists then will need excision by Dr. Swanson ICD-9 : 702.0 ICD-10 : L57.0 11/07/2017 Appointment: Lita Barakat WPtel: [address] [place] [address] ACUTE ILLNESS 11/07/2017 Patient Education: Patient Medication [...] : S61.411S 10/17/2017 Appointment: Lita Barakat WPtel: [address] [place] [address] ER Follow UP 10/17/2017 Patient Education: Patient Medication Summary Completed 10/17/2017 Appointment: Lita Barakat WPtel: [address] [place] [address] Consult 08/15/2017 Visit Diagnosis Plan: Chronic obstructiv [...] ICD-10 : J44.0 08/02/2017 Appointment: Autumn Oneil [address] [place] [address] ACUTE ILLNESS 08/02/2017 Patient Education: Patient Medication Summary Completed 08/02/2017 Patient Education: Patient Medication Summary Completed 07/31/2017 Care Plan: CHEST X-RAY 2VW FRONTAL&LATL LOINC : 37976-1 Pending 07/31/2017 Appointment: Lita Barakat WPtel: [address] [place], [place] [phone] [place] INJECTION 07/24/2017 Patient Education: Patient Medication [...] ICD-10 : J44.1 07/02/2017 Appointment: Autumn Oneil [address] [place] [address] ACUTE ILLNESS 07/02/2017 Patient Education: Patient Medication Summary Completed 07/02/2017 Care Plan: CHEST X-RAY 2VW FRONTAL&LATL LOINC : 84060-9 Pending 07/02/2017 Care Plan: MRI LUMBAR SPINE W/O DYE LOIN C : 99363-4 Pending 05/30/2017 Visit Plan: MRI at [facility] [place] codone 5.325 1 po q 4-6 hours prn pain #40 NR and Cyclobenzaprine (ERx) Continue warm packs for pain RTC if no improvement 05/29/2017 Appointment: Ruchi Buchanan WPtel: [address] [place] [address] ACUTE ILLNESS 05/29/2017 Patient Education: Patient Medication Summary Completed 05/29/2017 Appointment: Lita Barakat WPtel: [address] [place] [address] US CANCELED 05/24/2017 Patient Education: Patient Medication Summary Completed 05/22/2017 Care Plan: X-RAY EXAM L-S SPINE 2/3 VWS LOINC : 15386-4 Pending 05/22/2017 Appointment: Lita Barakat WPtel: [address] [place], [place] [phone] US LAB 04/17/2017 Patient Education: Patient Medication Summary Completed 04/17/2017 Referral: Demetrius Rodriguez WPtel: [address] [place] [address] Referral Initiated 04/05/2017 Appointment: Lita Barakat WPtel: [address] [place] [address] 03/30/17 0930---spoke with patient about ointments (km Consult 03/30/2017 Appointment: Lita Barakat WPtel: [address] [place] [address] 03/29/17 1320---spoke with patient, requip refilled wasn't received at pharmacy so verbally called (km) Consult 03/29/2017 Patient Education: Patient Medication Summary Completed 03/01/2017 Care Plan: CHEST X-RAY 2VW FRONTAL&LATL LOINC : 75738-5 Pending 03/01/2017 Visit Diagnosis Plan: Bursitis of left shoulder Discus yesi: Injection as above ICD-9 : 726.10 ICD-10 : M75.52 02/01/2017 Appointment: Lita Barakat WPtel: [address] [place] [address] 01/31 confirmed ~sl WORK IN 02/01/2017 Patient Education: Patient Medication Summary Completed 02/01/2017 Care Plan: X-RAY EXAM OF SHOULDER LOINC : 60571-0 Pending 01/30/2017 Visit Plan: May take OTC Tylenol/Ibuprof en as directed XRay at [facility] of left shoulder Tramadol 50mg 1 po q 6 hours prn pain called to [facility]. Sedation warning given (no driving, etc) RTC if no improvement 01/29/2017 Appointment: Ruchi Buchanan WPtel: [address] [place] [address] ACUTE ILLNESS 01/29/2017 Appointment: Ruchi Buchanan WPtel: [address] [place] [address] ACUTE ILLNESS 01/29/2017 Patient Education: Patient Medication Summary Completed 01/29/2017 Appointment: Lita Barakat WPtel: [address] [place], [place] [phone] [place] Consult 01/10/2017 Appointment: Lita Barakattel: [address] [place], [place] [phone] 12/27/2016 Patient Education: Patient Medication Summary Completed [...] : R53.83 12/21/2016 Appointment: Lita Barakat WPtel: [address] [place], [place] [phone] ACUTE ILLNESS 12/21/2016 Patient Education: Patient Medication Summary Completed 12/21/2016 Appointment: Lita Barakat WPtel: [address] [place], [place] [phone] US CANCELED 12/18/2016 Visit Diagnosis Plan: Restless [...] : D64.9 12/14/2016 Appointment: Lita Barakat WPtel: [address] [place], [place] [phone] US 12/13 confirmed ~sl WORK IN 12/14/2016 Appointment: Lita Barakat WPtel: [address] [place], [place] [id number] [place] CANCELED 12/14/2016 Patient Education: Patient Medication Summary Completed 12/14/2016 Appointment: Lita Barakat WPtel: [address] [place] [id number] LAB 12/12/2016 Patient Education: Patient Medication Summary Completed 12/12/2016 Appointment: Lita Barakat WPtel: [address] [place], [place] [phone] in ER this weekend--called for reports Consult 12/11/2016 Appointment: Lita Barakat WPtel: [address] [place], [place] [phone] US CANCELED 12/04/2016 Visit Diagnosis Plan: Pneumonia, unspecified organism Discussion: Called [facility] to get details on steroid and levaquin [...] ICD-10 : G25.81 11/14/2016 Appointment: Magda Toth [address] [place], [place] [phone] MEDICATION REVIEW 11/14/2016 Patient Education: Patient Medication Summary Completed 11/14/2016 Appointment: Lita Barakat WPtel: [address] [place] [id number] [place] RESCHEDULED 11/02/2016 Visit Diagnosis Plan: Candidal stomatitis Discussion: Diflucan and Nystatin Hold atorvastatin while taking diflucan ICD-9 : 112.0 ICD-10 : B37.0 10/31/2016 Appointment: Lita Barakat WPtel: [address] [place] [address] ACUTE ILLNESS 10/31/2016 Patient Education: Patient Medication Summary Completed 10/31/2016 Appointment: Lita Barakat WPtel: [address] [place] [address] [place] Consult 10/23/2016 Appointment: Lita Barakat WPtel: [address] [place] [address] US CANCELED 10/18/2016 Visit Plan: Rx as above Wear O2 at all t imes as instructed by Dr Chacon Continue breathing treatments Supportive care otherwise reviewed Follow up ingrid if not improving 10/03/2016 Appointment: Lita Barakat WPtel: [address] [place] [address] CANCELED 10/03/2016 Appointment: Magda Toth [address] [place] [address] ACUTE ILLNESS 10/03/2016 Patient Education: Patient Medication Summary Completed 10/03/2016 Visit Plan: Titrate requip to 1.5mg x 1 week Call if not helpful and will increase to 2mg qHS NO MORE nyquil at bedtime - discussed potential effects of decongestants on heart, oversedating himself, etc Will increase requip, then amitriptyline if needed to desired effect 09/04/2016 Appointment: Magda Toth [address] [place] [address] ACUTE ILLNESS 09/04/2016 Patient Education: Patient Medication Summary Completed 09/04/2016 Visit Plan: Stop requip and try elavil C ryotherapy as above See ENT for removal of right ear lesion 08/22/2016 Appointment: Lita Barakat WPtel: [address] [place] [address] ACUTE ILLNESS 08/22/2016 Patient Education: Patient Medication Summary Completed 08/22/2016 Visit Plan: Trial of requip 1mg q HS Res tart zoloft Recheck 1month 08/10/2016 Appointment: Lita Barakat WPtel: [address] [place] [address] ACUTE ILLNESS 08/10/2016 Patient Education: Patient Medication Summary Completed 08/10/2016 Visit Plan: Stop HCTZ Flagyl for diarrhe a Hydrate Discussed meds for restless legs Zofran prn Nausea 07/06/2016 Appointment: Lita Barakat WPtel: [address] [place] [address] 07/05 confirmed~sl Hospital Follow Up 07/06/2016 Patient Education: Patient Medication Summary Completed 07/06/2016 Visit Plan: Reviewed with Dr Gasper Palacios sidering his recent history, instructed him to go straight to the ER called to notify her so she can meet him there 06/22/2016 Appointment: Magda Toth [address] [place] [address] ACUTE ILLNESS 06/22/2016 Patient Education: Patient Medication Summary Completed 06/22/2016 Visit Plan: Continue current meds Prevna r 13 and High Dose Flu given 06/13/2016 Appointment: Lita Barakat WPtel: [address] [place] [address] 06/13 confirmed~ WORK IN 06/13/2016 Patient Education: Patient Medication Summary Completed 06/13/2016 Appointment: Lita Barakat WPtel: [address] [place] [address] just went over current medications CANCELED 06/08/2016 Visit Plan: Reviewed POC with Dr Barakat Stat cbc, cmp, d dimer, troponin, bnp, ekg, cxr If any worsening of symptoms while awaiting results, patient instructed to go to ER or call 911 06/01/2016 Appointment: Magda Toth [address] [place] [address] ACUTE ILLNESS 06/01/2016 Patient Education: Patient Medication Summary Completed 06/01/2016 Referral: José Miguel Swanson WPtel: [address] 04/[address] swanson's office, patient [...] eval and treatment 04/26/2016 Appointment: Magda Toth [address] [place], [place] [phone] ACUTE ILLNESS 04/26/2016 Patient Education: Patient Medication Summary Completed 04/26/2016 Care Plan: Referral Order SNOMED-CT : 30 4310881 Pending 04/26/2016 Visit Plan: Left ear flushed after conse nt with warm water with peroxide with ear syringe Patient tolerated well Ear exam is wnl following flushing Follow up PRN 04/05/2016 Appointment: Magda Toth [address] [facility] ACUTE ILLNESS 04/05/2016 Patient Education: Patient Medication Summary Completed 04/05/2016 Visit Plan: Increase Levemir to 25u sc d aily Increase sertraline to 2 full tablets daily--200mg Debrox or cerumenex to bilateral ears q HS for 3 nights then flush or fwup for fushing Check lab in 2mos then fwup 04/03/2016 Appointment: Lita Barakat WPtel: [address] [facility] 03/31 7 lm ~sl FOLLOW UP 04/03/2016 Patient Education: Patient Medication Summary Completed 04/03/2016 Visit Plan: Patient informed of correct dosage of levemir and how to administer. Patient verbalizes understanding and will call if any questions/concerns. 10 Units of Levemir given in office SC to right lower abdom en. Patient tolerated well. Site without redness/irritation. 03/13/2016 Appointment: Lita Barakat WPtel: [address] [facility] SPECIAL 03/13/2016 Patient Education: Patient Medication Summary Completed 03/13/2016 Appointment: Lita Barakat WPtel: [address] [place], [place] [phone] LAB 03/06/2016 Patient Education: Patient Medication Summary Completed 03/06/2016 Visit Plan: Patient saw Dr. Chacon this week and was given prednisone taper for COPD Continue current meds Accuchecks daily Patient will return on Sunday morning for fasting lab incuding CBC, CMP, TSH, free T4, HbA1C, Lipids, Testosterone, PSA 03/02/2016 Appointment: Lita Barakat WPtel: [address] [place], [place] [phone] 03/01 confirmed ~sl FOLLOW UP 03/02/2016 Patient [...] doing 02/17/2016 Appointment: Lita Barakat WPtel: [address] [place], [place] [id number] WORK IN 02/17/2016 Patient Education: Patient Medication Summary Completed 02/17/2016 Visit Plan: Xrays to further evaluate Alvarez spect heel spur(s) Will call with results Has had injections in the past that were helpful Dr Barakat can do them or can refer to podiatry if warranted 02/14/2016 Appointment: Magda Toth [address] [facility] ACUTE ILLNESS 02/14/2016 Patient Education: Patient Medication Summary Completed 02/14/2016 Visit Plan: Increase Zoloft to 150mg cooper ly 01/31/2016 Appointment: Lita Barakat WPtel: [address] [place], [place] [phone] 01/26 confirmed `sl FOLLOW UP 01/31/2016 Patient Education: Patient Medication Summary Completed 01/31/2016 Visit Plan: Decrease citalopram to 20mg q AM for 1 week then stop Start zoloft 50mg q HS for 1 week then increase to 100mg q HS 12/30/2015 Appointment: Lita Barakat WPtel: [address] [place], [place] [phone] 12/28 confirmed~sl ACUTE ILLNESS 12/30/2015 Patient Education: Patient Medication Summary Completed 12/30/2015 Visit Plan: Check Neck US 12/16/2015 Appointment: Lita Barakat WPtel: [address] [place], [place] [phone] 12/14 lm ~sl 12/15 confirmed-sp FOLLOW UP 12/16/2015 Patient Education: Patient Medication Summary Completed 12/16/2015 Care Plan: US EXAM OF HEAD AND NECK LOIN C : 54060-7 Ordered 12/16/2015 Appointment: Stephanie Rios WPtel: [address] [place], [place] [phone] 12/09 confirmed-sp 12/12 lm ~sl Patient r eturn call and stated he just plain forgot ~sl FOLLOW UP 12/13/2015 Visit Plan: Had changing lesions of fore head and left mastoid area removed earlier today. Follow-up in one week Will proceed with soft tissue ultrasound of neck/ left cervical lymph node if no improvement antibiotics Clindamycin 300mg PO TID 12/06/2015 Appointment: Stephanie Rios WPtel: [address] [place], [place] [phone] ACUTE ILLNESS 12/06/2015 Patient Education: Patient Medication Summary Completed 12/06/2015 Referral: Lisbeth Darby WPtel: [facility] [address] [facility] 11/18/15 called luther at [place] office and confirmed time and date of appointment with patient~sl Initiated 11/18/2015 Visit Plan: Referral to Dermatology for removal of facial skin lesions Cefdinir PO bid Topical Mupirocin to skin lesions bid 11/15/2015 Appointment: Stephanie Rios WPtel: [address] [place], [place] [phone] ACUTE ILLNESS 11/15/2015 Patient Education: Patient Medication Summary Completed 11/15/2015 Visit Plan: Continue current meds Accuch ecks daily Fwup with ophthamology as scheduled Will check lab in 3mos then fwup due to recent meds that will affect blood sugar 10/05/2015 Appointment: Lita Barakat WPtel: [address] [place], [place] [phone] 10/04/15 appt confirmed cn Annual Well Visit 08/2016 Patient Education: Patient Medication Summary Completed 10/05/2015 Visit Plan: Trajenta -1 sample box given Return visit in 6 weeks for fasting labs Notify for worsening symptoms such as Increased redness, swelling, pain or drainage of Rt. knee 07/22/2015 Appointment: Stephanie Rios WPtel: [address] [place] [address] 07/21 vm left cn FOLLOW UP 07/22/2015 Patient Education: Patient Medication Summary Completed 07/22/2015 Visit Plan: Continue to change dressing twice daily and apply Mupirocin Complete Doxycycline as directed. Follow-up for worsening symptoms, such as increased swelling, redness or pain. 07/01/2015 Appointment: Stephanie Rios WPtel: [address] [place], [place] [phone] FOLLOW UP 07/01/2015 Patient Education: Patient Medication Summary Completed 07/01/2015 Visit Plan: Pressure dressing applied to draining wound left knee. Instructed to change dressing twice daily and continue Mupirocin topical Doxycycline PO bid x 10 days Wound culture obtained. Wound tissue sent to pathology Follow-up in 3 days 06/28/2015 Appointment: Stephanie Rios WPtel: [address] [place], [place] [phone] ACUTE ILLNESS 06/28/2015 Patient Education: Patient Medication Summary Completed 06/28/2015 Visit Plan: Complete antibiotics Follow- up for increased tenderness, swelling or drainage. 06/09/2015 Appointment: Stephanie Rios WPtel: [address] [place], [place] [id number] 06/08/15 lm FOLLOW UP 06/09/2015 Patient Education: Patient Medication Summary Completed 06/09/2015 Visit Plan: Apply pressure dressing toda y Continue antibiotics and topical Mupirocin Follow-up in 2 days Bursa drained from open area using pressure--serosanguinous drainage 06/07/2015 Appointment: Stephanie Rios WPtel: [address] [place], [place] [phone] 06/04/15 confirmed with patient FOLLOW UP 0 06/07/2015 Patient Education: Patient Medication Summary Completed 06/07/2015 Visit Plan: Wound culture Lt. knee Apply mupirocin to open wound bid Clindamycin 600 mg PO bid x 10 days Follow-up on Sunday06/03/2015 Appointment: Stephanie Rios WPtel: [address] [place], [place] [phone] ACUTE ILLNESS 06/03/2015 Patient Education: Patient Medication Summary Completed 06/03/2015 Visit Plan: Accuchecks daily Check CMP, HbA1C today Patient is noncompliant with meds and diet but patient says he is doing everything he is supposed to do Wants to try performomist instead of albuterol in SVN 06/01/2015 Appointment: Lita Barakat WPtel: [address] [place], [place] [phone] 05/28 appt confirmed cn FOLLOW UP 06/01/20 Patient Education: Patient Medication Summary Completed 06/01/2015 Visit Plan: Change Breo Ellipta to Advai r 500/50 1 p BID this next month Continue turdoza Use albuterol prn Check CMP, HbA1C today Accuchecks daily Cryotherapy as above 02/25/2015 Appointment: Lita Barakat WPtel: [address] [place], [place] [phone] 02/24 appt confirmed and explained needed payment he said ok FOLLOW UP 02/25/2015 Patient Education: Patient Medication Summary Completed 02/25/2015 Referral: Lopez Chacon [address] [place] [address] [address] Will put patient on cancellation list Initiated 12/08/2014 Appointment: Lita Barakat WPtel: [address] [place] [address] Hospital Follow Up 10/29/2014 Visit Plan: Finish prednisone Continue S VNs with albuterol QID See pulmonology and start Pulmonary rehab Once again discussed taking it easy this winter--that he is high risk for exacerbation 10/27/2014 Appointment: Lita Barakat WPtel: [address] [place] [address] FOLLOW UP 10/27/2014 Patient Education: Patient Medication Summary Completed 10/27/2014 Appointment: Lita Barakat WPtel: [address] [place] [address] FOLLOW UP 10/26/2014 Appointment: Stephanie Rios WPtel: [address] [place] [address] WORK IN 10/21/2014 Patient Education: Patient Medication Summary Completed 10/21/2014 Patient Education: Patient Medication Summary Completed 10/19/2014 Visit Plan: Continue oxygen and SVNS wit h duoneb Increase farxiga to 10mg daily Diflucan 100mg daily for 1week 10/06/2014 Appointment: Lita Barakat WPtel: [address] [place] [address] appt time to 2:45pm FOLLOW UP 2014 Patient Education: Patient Medication Summary Completed 10/06/2014 Visit Plan: Finish omnicef Continue Breo BID and Turdoza Use SVNS with duoneb at least TID for next 2weeks then go to prn 09/21/2014 Appointment: Lita Barakat WPtel: [address] [place], [place] [phone] [facility] Follow Up 09/21/2014 Patient Education: Patient Medication Summary Completed 09/21/2014 Patient Education: [facility] - [employer]aving [employer] - Ventolin HFA - 18+ - Dynamic Portal ID Completed 09/21/2014 Appointment: Stephanie Rios WPtel: [address] [place], [place] [phone] Scheduled by 09/07 patient rescheduled to 09/08 with Stephanie. Hospital Follow Up 09/08/2014 Patient Education: Patient Medication Summary Completed 09/08/2014 Appointment: Stephanie Rios WPtel: [address] [place], [place] [phone] FOLLOW UP 09/02/2014 Patient Education: Patient Medication Summary Completed 09/02/2014 Patient Education: [employer] - Antibi otics, Analgesics 18+, Oral Contraceptives F 18+ Completed 09/02/2014 Appointment: Lita Barakat WPtel: [address] [place], [place] [phone] UA 08/27/2014 Patient Education: Patient Medication Summary [...] prn sleep 08/10/2014 Appointment: Lita Barakat WPtel: [address] [place], [place] [phone] Annual Well Visit 08/10/2014 Patient Education: Patient Medication Summary Completed 08/10/2014 Appointment: Lita Barakat WPtel: [address] [place], [place] [phone] [place] LAB 08/05/2014 Patient Education: Patient Medication Summary Completed 08/05/2014 Visit Plan: ECHO results reviewed Contin ue Breo and Turdoza Pt starts PT this afternoon for back--has had one epidural with no help in pain 05/05/2014 Appointment: Lita Barakat WPtel: [address] [place], [place] [phone] [place] FOLLOW UP 05/05/2014 Patient Education: Patient Medication Summary Completed 05/05/2014 Visit Plan: Continue Breo and Turdoza Camargo s heart tests scheduled next week Will see surgeon for removal of skin cancer to neck after done with cardiac workup 03/24/2014 Appointment: Lita Barakat WPtel: [address] [place] [address] FOLLOW UP 03/24/2014 Patient Education: Patient Medication Summary Completed 03/24/2014 Visit Plan: Proceed with cardiology eval uation as patient is has numerous risk factors for CAD Change Symbicort to Breo 1p BID and add Turdorza 1p BID Recheck in weeks Check 2-D ECHO and lexiscan 03/10/2014 Appointment: Lita Barakat WPtel: [address] [place] [address] FOLLOW UP 03/10/2014 Patient Education: Patient Medication Summary Completed 03/10/2014 Visit Plan: Shoulder injection as above Back brace to use when doing any lifting for stability 12/16/2013 Appointment: Lita Barakat WPtel: [address] [place] [address] ACUTE ILLNESS 12/16/2013 Patient Education: Patient Medication Summary Completed 12/16/2013 Visit Plan: Continue symbicort and Turdo za Salt water gargles Omnicef 300mg 2 po daily for 1wk Phenergan with codeine 10/09/2013 Appointment: Lita Barakat WPtel: [address] [place] [address] WORK IN 10/09/2013 Patient Education: Patient Medication Summary Completed 10/09/2013 Appointment: Ruchi Buchanan WPtel: [address] [place] [address] ACUTE ILLNESS 09/18/2013 Patient Education: Patient Medication Summary Completed 09/18/2013 Visit Plan: Check on repeat CXR Finish a bx Start Tradjenta to replace metformin 08/13/2013 Appointment: Lita Barakat WPtel: [address] [place] [address] 08/12 [facility] Follow Up 08/13/2013 Patient Education: Patient Medication Summary Completed 08/13/2013 Visit Plan: Admit to hospital 08/06/2013 Appointment: Stephanie Rios WPtel: [address] [place] [address] ACUTE ILLNESS 08/06/2013 Patient Education: Patient Medication Summary Completed 08/06/2013 Visit Plan: Continue current meds Contin ue accuchecks daily Proceed with stress test due to high risk for CAD 07/16/2013 Appointment: Lita Barakat WPtel: [address] [place] [address] FOLLOW UP 07/16/2013 Patient Education: Patient Medication Summary Completed 07/16/2013 Appointment: Lita Barakat WPtel: [address] [place] [address] LAB 06/25/2013 Patient Education: Patient Medication Summary Completed 06/25/2013 Visit Plan: prednisone and azithromycin. Doing CBC and mycoplasma blood draw. Will continue inhaler and albuterol breathing treatments. 04/09/2013 Appointment: Kimberly Villalba WPtel: [address] [place] [address] ACUTE ILLNESS 04/09/2013 Patient Education: Patient Medication Summary Completed 04/09/2013 Appointment: Lita Barakat WPtel: [address] [place] [address] ACUTE ILLNESS 02/11/2013 Patient Education: Patient Medication Summary Completed 02/11/2013 Appointment: Ruchi Buchanan WPtel: [address] [place] [address] ACUTE ILLNESS 01/31/2013 Patient Education: Patient Medication Summary Completed 01/31/2013 Visit Plan: Cefdinir and medrol dose pac k. Codeine/guiaf cough syrup. Has colonoscopy on Sunday. Pt. is to notify if fever occurs or symptoms worsen. Hydration and rest. 01/20/2013 Appointment: Kimberly Villalba WPtel: [address] [place] [address] ACUTE ILLNESS 01/20/2013 Patient Education: Patient Medication Summary Completed 01/20/2013 Visit Plan: Scopalamine patch and vestib ular exercises 12/19/2012 Appointment: Lita Barakat WPtel: [address] [place] [address] ACUTE ILLNESS 12/19/2012 Patient Education: Patient Medication Summary Completed 12/19/2012 Visit Plan: Dr. Swanson consult if no impr ovement in hearing. Pt. reports he will notify if no better in one week. Willam consult for skin lesion. 10/21/2012 Appointment: Kimberly Villalba WPtel: [address] [place] [address] ACUTE ILLNESS 10/21/2012 Patient Education: Patient Medication Summary Completed 10/21/2012 Appointment: Lita Barakat WPtel: [address] [place] [address] US LAB 09/19/2012 Patient Education: Patient Medication Summary Completed 09/19/2012 Visit Plan: Check fasting lab in AM--CMP , Lipids, HbA1C 09/18/2012 Appointment: Lita Barakattel: [address] [place] [address] FOLLOW UP 09/18/2012 Patient Education: Patient Medication Summary Completed 09/18/2012 Appointment: Lita Barakattel: [address] [place] [address] US appt time scheduled sooner FOLLOW UP 09/05 Visit Plan: Doxycycline and Prednisone I ncrease SVN to QID Add back Symbicort 160/4.5 2 p BID 08/28/2012 Appointment: Lita Barakat WPtel: [address] [place] [address] FOLLOW UP 08/28/2012 Patient Education: Patient Medication Summary Completed 08/28/2012 Appointment: Lita Barakat WPtel: [address] [place], [place] [id number] Annual Well Visit 07/10/2012 Patient Education: Patient Medication Summary Completed 07/10/2012 Visit Plan: Finish Z-pack Add Nasonex Ad d Meclizine Vestibular exercises Continue current meds and accuchecks Check lab and fwup in 4mos 05/09/2012 Appointment: Lita Barakat WPtel: [address] [place], [place] [id number] US number no longer works FOLLOW UP 2 Patient Education: Patient Medication Summary Completed 05/09/2012 Appointment: Lita Barakat WPtel: [address] [place], [place] [phone] US LAB 05/06/2012 Patient Education: Patient Medication Summary Completed 05/06/2012 Appointment: Lita Barakat WPtel: [address] [place], [place] [phone] US LAB 05/02/2012 Appointment: Lita Barakat WPtel: [address] [place], [place] [phone] US INJECTION 02/05/2012 Patient Education: Patient Medication Summary Completed 02/05/2012 Visit Plan: cefdinir. Will focus on rest and fluids. Pt. reports he is using breathing treatments as needed. Pt. will monitor for worsening symptoms or fever. 10/02/2011 Appointment: Kimberly Villalba WPtel: [address] [place], [place] [phone] ACUTE ILLNESS 10/02/2011 Patient Education: Patient Medication Summary Completed 10/02/2011 Appointment: Lita Barakat WPtel: [address] [place], [place] [phone] US INJECTION 08/10/2011 Patient Education: Patient Medication Summary Completed 08/10/2011 Visit Plan: Continue current meds Restar t Advair Restart exercise Flu shot given 08/07/2011 Appointment: Lita Barakat WPtel: [address] [place], [place] [phone] [place] FOLLOW UP 08/07/2011 Patient Education: Patient Medication Summary Completed 08/07/2011 Appointment: Lita Barakat WPtel: [address] [place], [place] [phone] US LAB 07/26/2011 Patient Education: Patient Medication Summary Completed 07/26/2011 Visit Plan: ALEKSANDER zapata DC [place] Continue Metformin but change to BID Add Lantus 25u sc q PM BS readings in 1wk 04/03/2011 Appointment: Lita Barakat WPtel: [address] [place], [place] [phone] ACUTE ILLNESS 04/03/2011 Patient Education: Patient Medication Summary Completed 04/03/2011 Appointment: Lita Barakat WPtel: [address] [place], [place] [phone] [place] INJECTION 01/19/2011 Patient Education: Patient Medication Summary Completed 01/19/2011 Appointment: Lita Barakat WPtel: [address] [place], [place] [id number] ACUTE ILLNESS 01/18/2011 Patient Education: Patient Medication Summary Completed 01/18/2011 Appointment: Lita Barakat WPtel: [address] [place], [place] [phone] [place] INJECTION 12/21/2010 Patient Education: Patient Medication Summary Completed 12/21/2010 Appointment: Lita Barakat WPtel: [address] [place], [place] [phone] [place] FOLLOW UP 12/19/2010 Patient Education: Patient Medication Summary Completed 12/19/2010 Appointment: Lita Barakat WPtel: [address] [place], [place] [phone] [place] LAB 12/07/2010 Patient Education: Patient Medication Summary Completed 12/07/2010 Appointment: Kimberly Villalba WPtel: [address] [place], [place] [phone] ACUTE ILLNESS 04/05/2010 Patient Education: Patient Medication Summary Completed 04/05/2010 Appointment: Lita Barakat WPtel: [address] [place], [place] [phone] [place] WORK IN 03/14/2010 Patient Education: Patient Medication Summary Completed 03/14/2010 Appointment: Lita Barakat WPtel: [address] [place], [place] [phone] US LAB 03/02/2010 Visit Plan: HbA1C in 3mos. Continue Accu checks BID alternating times. Switch lexapro to celexa 01/13/2010 Appointment: Lita Barakat WPtel: [address] [place], [place] [phone] FOLLOW UP 01/13/2010 Patient Education: Patient Medication Summary Completed 01/13/2010 Appointment: Lita Barakat WPtel: [address] [place], [place] [phone] FOLLOW UP 01/11/2010 Visit Plan: Pt. will continue the Avalox and Doxycycline regimen as prescribed the previous day. He has been advised to continue inhalers, breathing treatments and oxygen therapy for at least the weekend. Moderate activity without strenuous exercise. The pt. will seek immediate re-eval if his symptoms worsen. 12/23/2009 Appointment: Kimberly Villalba WPtel: [address] [place], [place] [phone] FOLLOW UP 12/23/2009 Patient Education: Patient Medication [...] tomorrow morning. 12/22/2009 Appointment: Kimberly Villalba WPtel: [address] [place], [place] [phone] ACUTE ILLNESS 12/22/2009 Patient Education: Patient Medication Summary Completed 12/22/2009 Appointment: Kimberly Villalba WPtel: [address] [place], [place] [phone] [place] FOLLOW UP 12/21/2009 Appointment: Lita Barakat WPtel: [address] [place], [place] [phone] [place] INJECTION 12/16/2009 Patient Education: Patient Medication Summary Completed 12/16/2009 Appointment: Kimberly Villalba WPtel: [address] [place], [place] [phone] ACUTE ILLNESS 12/13/2009 Patient Education: Patient Medication Summary Completed 12/13/2009 Care Plan: X-RAY EXAM OF SHOULDER lt shoulder (pain ra diates across the shoulder) Hand carried orders to [facility] LOINC : 60947-5 Ordered 12/13/2009 Care Plan: X-RAY EXAM THORAC SPINE 2VWS Hand carried order LOINC : 62531-1 Ordered 12/13/2009 Care Plan: X-RAY EXAM RIBS UNI 2 VIEWS Posterior ribs of lt. side Pt. hand carries order to [facility] LOINC : 78380-2 Ordered 12/13/2009 Referral: José Miguel Swanson WPtel: [address] [address] [place] Referral Appointment Requested Referral: José Miguel Swanson WPtel: [address] [address] [place] Referral Appointment Requested Referral: Chandu Quarles WPtel: [address] Quarles for screening colonoscopy. P atronaldo notified that [facility] office will book appt with him Initiated Referral: Santosh Machado WPtel: [address] [facility] [place] Referral Appointment Requested Referral: José Miguel Swanson WPtel: [address] [phone] [place] Referral Initiated Referral: Lopez Chacon [address] [facility] C&D [id number] [place] Referral Initiated Referral: Demetrius Rodriguez WPtel: [address] [address] [place] Referral Appointment Requested Referral: José Miguel Swanson WPtel: [address] [address] [place] Referral Appointment Requested Referral: José Miguel Swanson WPtel: [address] [address] [place] Referral Initiated Instructions Comment . Saline nasal flushes prn. Tylenol/Motr in prn headache. Notify if persists/symptoms worsening. . MRI at [facility] Hydrocodone 5.325 1 po q 4-6 hours prn pain #40 NR and Cyclobenzaprine (ERx) Continue warm packs for pain RTC if no improvement . May take OTC Tylenol/Ibuprofen as dire cted XRay at of left shoulder Tramadol 50mg 1 po q 6 hours prn pain called to [facility]. Sedation warning given (no driving, etc) [...]
--- NOTE | 2020-03-28 16:23 | NUR ---
RT HERE FOR BREATHING TX.
--- NOTE | 2020-03-28 16:25 | Diagnostic Imaging Report ---
INDICATION: Short of air. EXAMINATION: Upright portable chest was obtained. FINDINGS: Normal heart size and vascularity. The lungs are clear. There is no effusion or pneumothorax. There is no bony abnormality. IMPRESSION: No acute abnormality is seen with no change from 4:43. Dictated by: Dictated on workstation # [id number]
[2020-03-28 16:33] LABS: PROTHROMBIN TIME PATIENT 12.5 SEC (12.2-14.7)
--- NOTE | 2020-03-28 17:00 | NUR ---
DEVIN MORALES admitted to room 414-1, with an admitting diagnosis of COPD EXACBERATION, on 03/28/20 from ER via [facility], accompanied by STAFF. DEVIN MORALES introduced to surroundings, call light, bed controls, phone, TV, temperature control, lights, meal times, smoking policy, visitor policy, side rail policy, bathrooms and showers. Patient Rights given to patient in the handbook. DEVIN MORALES verbalizes understanding that [facility] is not responsible for the loss or damage to any personal effects or valuables that are kept in the patients posession during their hospitalization. DEVIN MORALES verbalizes understanding of Interdisciplinary Patient Education. SALINE LOCK INTACT LEFT AC. CURRENTLY ON BIPAP. DENIES PAIN. CALLED TO INFORM OF ROOM NUMBER.
--- NOTE | 2020-03-28 17:01 | NUR ---
ATTEMPT TO CALL CONCERNING ADMIT ET NO ANSWER.
[2020-03-28 17:03] VITALS: BP 162/75
--- OUTSIDE RECORDS SUMMARY | 2020-03-28 17:28 | XMS REPORT | Continuity of Care Document ---
Author Organization Unknown Address Unknown Phone Unavailable Allergies Active Description Code Type Severity Reaction Onset Reported/Identified Relationship to Patient Clinical Status Yes No Known Drug Allergies [id number] Drug Allergy Unknown N/A 06/20/2018 Yes tramadol [id number] Drug Allergy Unknown NAUSEA 12/15/2018 Yes hydrocodone [id number] Drug Aller gy Unknown NAUSEA 03/25/2019 Yes oxycodone [id number] Drug Allergy Unknown NAUSEA 03/25/2019 Yes hydrocodone [id number] Drug Aller gy Mild NAUSEA 07/25/2019 Yes oxycodone [id number] Drug Allergy Mild NAUSEA 07/25/2019 Medications There is no data. Problems Date Dx Coded Attending Type Code Diagnosis Diagnosed By LITA BARAKAT DO Ot D50.9 IRON DEFICIENCY ANEMIA, UNSPECIFIED 1512 STEVAN PATTON DO Ot Z01.818 ENCOUNTER FOR OTHER PREPROCEDURAL EXAMIN 1512 STEVAN PATTON DO Ot Z11. 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 12/18/2009 Ot 959.19 OTH INJURY OF OTHER SITES OF TRUNK 12/18/2009 Ot E000.8 OTH ER EXTERNAL CAUSE STATUS 12/18/2009 Ot E030 UNSPE CIFIED ACTIVITY 12/18/2009 Ot E849.0 ACC IDENT IN HOME 12/18/2009 Ot E928.9 ACC IDENT NOS 08/09/2013 LITA BARAKAT DO Ot 250.00 DIAB HOLLIE WO COMPL, TYPE II OR UNSPEC TY 08/09/2013 LITA BARAKAT DO Ot 268.9 VITAMIN D DEFICIENCY NOS 08/09/2013 LITA BARAKAT DO Ot 272.4 HYPERLIPIDEMIA NEC/NOS 08/09/2013 LITA BARAKAT DO Ot 300.00 ANXIETY STATE NOS 08/09/2013 ORENDER DO, LITA S Ot 311 DEPRESSIVE DISORDER NEC 08/09/2013 JASMINNDER DO, LITA S Ot 403.90 HYPTNSV CHR KID DIS, UNSPEC, W CHR KD ST 08/09/2013 JASMINNDER DO, LITA S Ot 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 08/09/2013 JASMINNDER DO LITA S Ot 486 PNEUMONIA, ORGANISM NOS 08/09/2013 JASMINNDER DO, LITA S Ot 491.21 OBSTR CHRONIC BRONCHITIS, W (ACUTE) EXAC 08/09/2013 JASMINNDER DO, LITA S Ot 530.81 ESOPHAGEAL REFLUX 08/09/2013 JASMINNDER DO, LITA S Ot 585.9 CHRONIC KIDNEY DISEASE, UNSPECIFIED 08/09/2013 JASMINNDER DO LITA S Ot 702.0 ACTINIC KERATOSIS 08/09/2013 JASMINNDER DO LITA S Ot 715.90 OSTEOARTHROS NOS-UNSPEC 08/09/2013 GASPER JOHNSON LITA S Ot 737.10 KYPHOSIS NOS 08/09/2013 GASPER JOHNSON LITA S Ot 782.7 SPONTANEOUS ECCHYMOSES 08/09/2013 GASPER JOHNSON LITA S Ot 799.02 HYPOXEMIA 08/09/2013 GASPER JOHNSON LITA S Ot V04.81 ND FOR PROPHYLACTIC VACCIN AND INOCULATI 09/03/2014 GASPER JOHNSON LITA S Ot 786.09 09/03/2014 GASPER JOHNSON LITA S Ot 786.50 09/03/2014 GASPER JOHNSON LITA S Ot V17.3 09/04/2014 GASPER JOHNSON LITA S Ot 250.00 09/04/2014 JASMINNDBEV JOHNSON LITA S Ot 272.0 09/04/2014 JASMINNDBEV JOHNSON LITA S Ot 389.9 09/04/2014 JASMINNDBEV JOHNSON LITA S Ot 401.9 09/04/2014 JASMINNDBEV JOHNSON LITA S Ot 486 09/04/2014 GASPER JOHNSON LITA S Ot 493.22 09/04/2014 JASMINNDBEV JOHNSON LITA S Ot 530.81 09/04/2014 GASPER JOHNSON LITA S Ot 696.1 09/04/2014 GASPER JOHNSON LITA S Ot 716.90 09/04/2014 ALIZE BARAKAT DOQUELINE S Ot 780.57 09/04/2014 ALIZE BARAKAT DOQUELINE S Ot V10.83 09/04/2014 ARMIN DO LITA S Ot V12.79 09/04/2014 ARMIN DO LITA S Ot V15.82 09/04/2014 ALIZE BARAKAT DOQUELINE S Ot 038.9 SEPTICEMIA NOS 09/04/2014 [facility].00 DIAB HOLLIE WO COMPL, TYPE II OR UNSPEC TY 09/04/2014 ARMIN DO LITA S Ot 272.0 PURE HYPERCHOLESTEROLEM 09/04/2014 ARMIN DO LITA S Ot 389.9 HEARING LOSS NOS 09/04/2014 ARMIN DO LITA S Ot 401.9 HYPERTENSION NOS 09/04/2014 ARMIN JERMAIN JOHNSONLINE S Ot 481 PNEUMOCOCCAL PNEUMONIA [STREPTOCOCCUS PN 09/04/2014 ARMIN ALIZE JOHNSONLITA S Ot 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, W (ACUTE) EX 09/04/2014 GASPER JOHNSON LITA S Ot 530.81 ESOPHAGEAL REFLUX 09/04/2014 ALIZE BARAKAT DOQUELINE S Ot 696.1 OTHER PSORIASIS 09/04/2014 ALIZE BARAKAT DOQUELINE S Ot 716.90 ARTHROPATHY NOS-UNSPEC 09/04/2014 ALIZE BARAKAT DOQUELINE S Ot 780.57 UNSPECIFIED SLEEP APNEA 09/04/2014 ALIZE BARAKAT DOQUELINE S Ot 799.02 HYPOXEMIA 09/04/2014 ARMIN DO LITA S Ot 995.91 SEPSIS 09/04/2014 ARMIN ALIZE JOHNSONLITA S Ot V10.83 HX-SKIN MALIGNANCY NEC 09/04/2014 ALIZE BARAKAT DOQUELINE S Ot V12.79 PERSONAL HISTORY OTH SPEC DIGESTIVE SYST 09/04/2014 ALIZE BARAKAT DOQUELINE S Ot V15.82 HISTORY OF TOBACCO USE 09/11/2014 ARMIN ALIZE JOHNSONLITA S Ot 250.02 09/11/2014 ALIZE BARAKAT DOQUELINE S Ot 272.0 09/11/2014 ORENDER DO, LITA S Ot 300.00 09/11/2014 [facility] 311 09/11[facility]2014 [facility] Ot 389.9 09/11/2014 [facility], [facility] S Ot 401.9 09/11/2014 [facility] S Ot 481 09/11/2014 [facility] S Ot 491.21 09/11/2014 [facility], [facility] S Ot 530.81 09/11/2014 [facility], [facility] S Ot 696.1 09/11/2014 [facility] DO, LITA S Ot 716.90 09/11/2014 [facility] DO, LITA S Ot 780.57 09/11/2014 [facility] DO, LITA S Ot 785.2 09/11/2014 [facility] DO, LITA S Ot 799.02 09/11/2014 [facility] DO, LITA S Ot E932.0 09/11/2014 [facility] DO, LITA S Ot V12.79 09/11/2014 [facility] DO, LITA S Ot V15.81 09/11/2014 [facility] S Ot V15.82 09/11/2014 [facility] DO, LITA S Ot V46.2 09/12/2014 [facility] , LITA S Ot 038.2 PNEUMOCOCCAL SEPTICEMIA 09/12/2014 [facility] , LITA S Ot 250.02 DIAB HOLLIE WO COMPL, TYPE II OR UNSPEC TY 09/12/2014 [facility], LITA S Ot 272.0 PURE HYPERCHOLESTEROLEM 09/12/2014 [facility] , LITA S Ot 272.4 HYPERLIPIDEMIA NEC/NOS 09/12/2014 [facility], LITA S Ot 300.00 ANXIETY STATE NOS 09/12/2014 JASMINNDER DO LITA S Ot 311 DEPRESSIVE DISORDER NEC 09/12/2014 [facility], L[facility] S Ot 389.9 HEARING LOSS NOS 09/12/2014 JASMINND DO, LITA S Ot 401.9 HYPERTENSION NOS 09/12/2014 [facility] DO LITA S Ot 414.01 CORONARY ATHEROSCLEROSIS OF [place] CORON 09/12/2014 LITA BARAKAT DO Ot 481 PNEUMOCOCCAL PNEUMONIA [STREPTOCOCCUS PN 09/12/2014 LITA BARAKAT DO Ot 491.21 OBSTR CHRONIC BRONCHITIS, W (ACUTE) EXAC 09/12/2014 LITA BARAKAT DO Ot 518.81 ACUTE RESPIRATORY FAILURE 09/12/2014 LITA BARAKAT DO Ot 530.81 ESOPHAGEAL REFLUX 09/12/2014 LITA BARAKAT DO Ot 696.1 OTHER PSORIASIS 09/12/2014 LITA BARAKAT DO S Ot 716.90 ARTHROPATHY NOS-UNSPEC 09/12/2014 LITA BARAKAT DO S Ot 780.57 UNSPECIFIED SLEEP APNEA 09/12/2014 LITA BARAKAT DO Ot 785.2 CARDIAC MURMURS NEC 09/12/2014 LITA BARAKAT DO Ot 799.02 09/12/2014 LITA BARAKAT DO Ot 995.92 SEVERE SEPSIS 09/12/2014 LITA BARAKAT DO Ot E932.0 ADV EFF CORTICOSTEROIDS 09/12/2014 LITA BARAKAT DO Ot V12.79 PERSONAL HISTORY OTH SPEC DIGESTIVE SYST 09/12/2014 LITA BARAKAT DO Ot V15.81 HX OF PAST NONCOMPLIANCE 09/12/2014 LITA BARAKAT DO Ot V15.82 HISTORY OF TOBACCO USE 09/12/2014 LITA ABRAKAT DO Ot V46.2 SUPPLEMENTAL OXYGEN 10/20/2014 Ot 959.19 10/20/2014 Ot E000.8 10/20/2014 Ot E030 10/20/2014 Ot E849.0 10/20/2014 Ot E928.9 10/20/2014 Ot 786.05 10/20/2014 LITA BARAKAT DO Ot 486 10/20/2014 LITA BARAKAT DO Ot 496 10/20/2014 LITA BARAKAT DO S Ot 786.09 10/20/2014 LITA BARAKAT DO Ot 786.50 10/20/2014 LITA BARAKAT DO Ot V17.3 10/23/2014 ORENDER DO, LITA S Ot 250.02 DIAB HOLLIE WO COMPL, TYPE II OR UNSPEC TY 10/23/2014 ORENDER DO, LITA S Ot 401.9 HYPERTENSION NOS 10/23/2014 ORENDER DO, LITA S Ot 491.21 OBSTR CHRONIC BRONCHITIS, W (ACUTE) EXAC 10/23/2014 ORENDER DO, LITA S Ot V12.61 PERSONAL HISTORY, PNEUMONIA (RECURRENT) 10/23/2014 ORENDER DO, LITA S Ot V15.82 HISTORY OF TOBACCO USE 11/04/2014 ORENDER DO, LITA S Ot 496 11/04/2014 ORENDER DO, LITA S Ot V57.89 11/04/2014 ORENDER DO, LITA S Ot 496 12/27/2014 TATA HERMOSILLO MEDICAL OFFICE MANAGER Ot 486 PNEUMONIA, ORGANISM NOS 12/27/2014 TATA HERMOSILLO MEDICAL OFFICE MANAGER Ot 786.05 SHORTNESS OF BREATH 02/01/2015 ORENDER DO, LITA S Ot 496 CHR AIRWAY OBSTRUCT NEC 02/01/2015 JASMINNDER DO, LITA S Ot V57.89 REHABILITATION [...] RAKEL THORPE DO Ot 786. 09 05/05/2015 JASMINNDER DO, LITA S Ot 496 CHR AIRWAY OBSTRUCT NEC 05/05/2015 ORENDER DO, LITA S Ot V57.89 REHABILITATION PROC NEC 05/11/2015 ORENDER DO, LITA S Ot 496 05/11/2015 ORENDER [...] Ot 496 CHR AIRWAY OBSTRUCT NEC 06/23/2015 ORENDER DO, LITA S Ot V57.89 REHABILITATION PROC NEC 12/22/2015 JASMINNDER DOJERMAINLIAT S Ot K11.6 12/22/2015 ORENDER DO, LITA S Ot R22.1 12/31/2015 ORENDER DO, LITA S Ot K11.6 12/31/2015 ORENDER DO, LITA S Ot R22.1 02/15/2016 JASMINNDER DOJERMAINLITA S Ot M79.671 PAIN IN RIGHT FOOT 02/18/2016 JASMINNDER DOJERMAINLITA S Ot M79.671 PAIN IN RIGHT FOOT 02/20/2016 JASMINNDER DO LITA S Ot M79.671 PAIN IN RIGHT FOOT 03/03/2016 ORENDER DO, LITA S Ot M79.671 PAIN IN RIGHT FOOT 06/02/2016 JASMINNDER DOJERMAINLITA S Ot D64.9 ANEMIA, UNSPECIFIED 06/02/2016 JASMINNDER DOJERMAINLITA S Ot E11.9 TYPE 2 DIABETES MELLITUS WITHOUT COMPLIC 06/02/2016 JASMINNDER DOJERMAINLITA S Ot E66.9 OBESITY, UNSPECIFIED 06/02/2016 JASMINNDER DOJERMAINLITA S Ot E78.5 HYPERLIPIDEMIA, UNSPECIFIED 06/02/2016 JASMINNDER DOJERMAINLITA S Ot I10 ESSENTIAL (PRIMARY) HYPERTENSION 06/02/2016 JERMAIN BARAKAT DOLINE S Ot I21.4 NON-ST ELEVATION (NSTEMI) MYOCARDIAL INF 06/02/2016 JERMAIN BARAKAT DOLINE S Ot I25.10 ATHSCL HEART DISEASE OF [place] CORONARY 06/02/2016 JERMAIN BARAKAT DOLINE S Ot J44.9 CHRONIC OBSTRUCTIVE PULMONARY DISEASE, U 06/02/2016 ALIZE BARAKAT DOQUELINE S Ot Z68.30 BODY MASS INDEX (BMI) 30.0-30.9, ADULT 06/02/2016 JERMAIN BARAKAT DOLINE S Ot Z79.4 SENIOR CARE (CURRENT) USE OF INSULIN 06/02/2016 ALIZE BARAKAT DOQUELINE S Ot Z87.891 PERSONAL HISTORY OF NICOTINE DEPENDENCE 06/02/2016 JERMAIN BARAKAT DOLINE S Ot Z91.19 PATIENT'S NONCOMPLIANCE W [facility] 06/20/2016 JARAD COPPOLA MEDICAL OFFICE MANAGER Ot R06.02 SHORTNESS OF BREATH 06/20/2016 JARAD COPPOLA MEDICAL OFFICE MANAGER Ot R07.9 CHEST PAIN, UNSPECIFIED 06/20/2016 JARAD COPPOLA MEDICAL OFFICE MANAGER Ot R53.83 OTHER FATIGUE 06/23/2016 JERMAIN BARAKAT DOLINE S Ot E11.9 TYPE 2 DIABETES MELLITUS WITHOUT COMPLIC 06/23/2016 JERMAIN BARAKAT DOLINE S Ot E78.5 HYPERLIPIDEMIA, UNSPECIFIED 06/23/2016 JERMAIN BARAKAT DOLINE S Ot I10 ESSENTIAL (PRIMARY) HYPERTENSION 06/23/2016 JERMAIN BARAKAT DOLINE S Ot I25.10 ATHSCL HEART DISEASE OF [place] CORONARY 06/23/2016 ALIZE BARAKAT DOQUELINE S Ot J44.9 CHRONIC OBSTRUCTIVE PULMONARY DISEASE, U 06/23/2016 JERMAIN BARAKAT DOLINE S Ot R07.9 CHEST PAIN, UNSPECIFIED 06/23/2016 JERMAIN BARAKAT DOLINE S Ot Z79.4 TESTER EQUIPMENT (CURRENT) USE OF INSULIN 06/23/2016 JERMAIN BARAKAT DOLINE S Ot Z87.891 PERSONAL HISTORY OF NICOTINE DEPENDENCE 06/23/2016 JERMAIN BARAKAT DOLINE S Ot 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 ANGIOPLASTY IMPLANT 06/28/2016 LITA BARAKAT DO S Ot 486 PNEUMONIA, ORGANISM NOS 06/28/2016 JASMINNDBEV JOHNSON, LITA S Ot 496 CHR AIRWAY OBSTRUCT NEC 06/28/2016 JERMAIN BARAKAT DOLINE S Ot 786.09 RESPIRATORY ABNORM NEC 06/28/2016 JERMAIN BARAKAT DOLINE S Ot 786.50 CHEST PAIN NOS 06/28/2016 JERMAIN BARAKAT DOLINE S Ot V17.3 FAM HX-ISCHEM HEART DIS 06/28/2016 JERMAIN BARAKAT DOLINE S Ot 496 CHR AIRWAY OBSTRUCT NEC 06/28/2016 RAKEL THORPE DO Ot 278. 00 OBESITY, NOS 06/28/2016 RAKEL THORPE DO Ot 496 CHR AIRWAY OBSTRUCT NEC 06/28/2016 RAKEL THORPE DO Ot 786. 09 RESPIRATORY ABNORM NEC 06/28/2016 JERMAIN BARAKAT DOLINE S Ot 496 06/28/2016 JERMAIN BARAKAT DOLINE S Ot V57.89 06/28/2016 JERMAIN BARAKAT DOLINE S Ot K11.6 MUCOCELE OF SALIVARY GLAND 06/28/2016 JERMAIN BARAKAT DOLINE S Ot R22.1 LOCALIZED SWELLING, MASS AND LUMP, NECK 06/28/2016 JERMAIN BARAKAT DOLINE S Ot M79.671 PAIN IN RIGHT FOOT 06/28/2016 JARAD COPPOLA MEDICAL OFFICE MANAGER Ot R06.02 SHORTNESS OF BREATH 06/28/2016 JARAD COPPOLA MEDICAL OFFICE MANAGER Ot R07.9 CHEST PAIN, UNSPECIFIED 06/28/2016 JARAD COPPOLA MEDICAL OFFICE MANAGER Ot R53.83 OTHER FATIGUE 07/07/2016 RANDI SHAFFER FACC, TARI FACP CCDS Ot I25.10 ATHSCL HEART DISEASE OF [place] CORONARY 07/07/2016 RANDI SHAFFER FACC, TARI FACP CCDS Ot R06.02 SHORTNESS OF BREATH 07/12/2016 RANDI SHAFFER FACC, TARI FACP CCDS Ot I25.10 ATHSCL HEART DISEASE OF [place] CORONARY 07/12/2016 RANDI SHAFFER FACC, TARI FACP CCDS Ot R06.02 SHORTNESS OF BREATH 07/19/2016 RANDI SHAFFER FACC, TARI FACP CCDS Ot I25.10 ATHSCL HEART DISEASE OF [place] CORONARY 07/19/2016 RANDI SHAFFER FAC, TARI FACP CCDS Ot R06.02 SHORTNESS OF BREATH 07/27/2016 JOYCE KAYE MEDICAL OFFICE MANAGER Ot R91.1 SOLITARY PULMONARY NODULE 07/28/2016 JOYCE KAYE MEDICAL OFFICE MANAGER Ot R91.1 SOLITARY PULMONARY NODULE 08/01/2016 JOYCE KAYE MEDICAL OFFICE MANAGER Ot R91.1 SOLITARY PULMONARY NODULE 08/09/2016 JOYCE KAYE MEDICAL OFFICE MANAGER Ot R91.1 SOLITARY PULMONARY NODULE 09/04/2016 MIKHAIL THORPE DOSON M Ot J43. 8 OTHER EMPHYSEMA 09/04/2016 MIKHAIL THORPE DOSON M Ot R06. 00 DYSPNEA, UNSPECIFIED 09/04/2016 ILAMIKHAIL DE JESUS DOSON M Ot R91. 1 SOLITARY PULMONARY NODULE 09/04/2016 RAKEL THORPE DO M Ot Z87.891 PERSONAL HISTORY OF NICOTINE DEPENDENCE 09/07/2016 MIKHAIL THORPE DOSON M Ot J43. 8 OTHER EMPHYSEMA 09/07/2016 RAKEL THORPE DO M Ot R06. 00 DYSPNEA, UNSPECIFIED 09/07/2016 ILAMIKHAIL DE JESUS DOSON M Ot R91. 1 SOLITARY PULMONARY NODULE 09/07/2016 ILAMIKHAIL DE JESUS DOSON M Ot Z87.891 PERSONAL HISTORY OF NICOTINE DEPENDENCE 09/21/2016 MIKHAIL THORPE DOSON M Ot J43. 8 OTHER EMPHYSEMA 09/21/2016 MIKHAIL THORPE DOSON M Ot R06. 00 DYSPNEA, UNSPECIFIED 09/21/2016 ILAMIKHAIL DE JESUS DOSON M Ot R91. 1 SOLITARY PULMONARY NODULE 09/21/2016 MIKHAIL THORPE DOSON M Ot Z87.891 PERSONAL HISTORY OF NICOTINE DEPENDENCE 12/10/2016 TANMAY MADDEN DOA Narayan Ot E11.9 TYPE 2 DIABETES MELLITUS WITHOUT COMPLIC 12/10/2016 TANMAY MADDEN DOA K Ot I10 ESSENTIAL (PRIMARY) HYPERTENSION 12/10/2016 CIERA MADDEN DO Ot I25.10 ATHSCL HEART DISEASE OF [place] CORONARY 12/10/2016 CIERA MADDEN DO Ot J18.9 PNEUMONIA, UNSPECIFIED ORGANISM 12/10/2016 CIERA MADDEN DO Ot J44.1 CHRONIC OBSTRUCTIVE PULMONARY DISEASE W 12/10/2016 CIERA MADDEN DO Ot R06.02 SHORTNESS OF BREATH 12/10/2016 CHANO DO, CIERA K Ot Z79.4 SENIOR CARE (CURRENT) USE OF INSULIN 12/10/2016 CHANO DO CIERA K Ot Z79.84 TESTER EQUIPMENT (CURRENT) USE OF ORAL HYPOGLYC 12/10/2016 CHANO DO CIERA K Ot Z79.899 OTHER TESTER EQUIPMENT (CURRENT) DRUG THERAPY 12/10/2016 CHANO JOHNSON CIERA K Ot Z87.891 PERSONAL HISTORY OF NICOTINE DEPENDENCE 12/10/2016 CHANO JOHNSON CIERA K Ot 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 ANGIOPLASTY IMPLANT 12/12/2016 CHANO DO CIERA K Ot E11.9 TYPE 2 DIABETES MELLITUS WITHOUT COMPLIC 12/12/2016 CHANO DO CIERA K Ot I10 ESSENTIAL (PRIMARY) HYPERTENSION 12/12/2016 CHANO DO CIERA K Ot I25.10 ATHSCL HEART DISEASE OF [place] CORONARY 12/12/2016 TANMAY MADDEN DOA K Ot J18.9 PNEUMONIA, UNSPECIFIED ORGANISM 12/12/2016 TANMAY MADDEN DOA K Ot J44.1 CHRONIC OBSTRUCTIVE PULMONARY DISEASE W 12/12/2016 ATNMAY MADDEN DOA K Ot R06.02 SHORTNESS OF BREATH 12/12/2016 CHANO DO CIERA K Ot Z79.4 SENIOR CARE (CURRENT) USE OF INSULIN 12/12/2016 CHANO DO CIERA K Ot Z79.84 TESTER EQUIPMENT (CURRENT) USE OF ORAL HYPOGLYC 12/12/2016 CHANO DO CIERA K Ot Z79.899 OTHER SENIOR CARE (CURRENT) DRUG THERAPY 12/12/2016 CHANO JOHNSON CIERA K Ot Z87.891 PERSONAL HISTORY OF NICOTINE DEPENDENCE 12/12/2016 CHANO JOHNSON CIERA K Ot 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 ANGIOPLASTY IMPLANT 12/22/2016 JASMINNDER JERMAIN JOHNSONLINE S Ot D64.9 ANEMIA, UNSPECIFIED 01/05/2017 JERMAIN BARAKAT DOLINE S Ot D64.9 ANEMIA, UNSPECIFIED 01/31/2017 CASSIA THOMPSON Ot S49.92XA UNSP INJURY OF LEFT SHOULDER AND UPPER A 01/31/2017 CASSIA THOMPSON Ot W19.XXXA UNSPECIFIED FALL, INITIAL ENCOUNTER 01/31/2017 CASSIA THOMPSON Ot Y99.8 OTHER EXTERNAL CAUSE STATUS 02/12/2017 DORIS THOMPSONCY M OIL EXPELLER Ot S49.92XA UNSP INJURY OF LEFT SHOULDER AND UPPER A 02/12/2017 [facility] Ot W19.XXXA UNSPECIFIED FALL, INITIAL ENCOUNTER 02/12/2017 CASSIA [facility] Ot Y99.8 OTHER EXTERNAL CAUSE STATUS 06/16/2017 LITA BARAKAT DO Ot D64.9 ANEMIA, UNSPECIFIED 06/16/2017 LITA BARAKAT DO S Ot E11.65 TYPE 2 DIABETES MELLITUS WITH HYPERGLYCE 06/16/2017 LITA BARAKAT DO S Ot E78.5 HYPERLIPIDEMIA, UNSPECIFIED 06/16/2017 LITA BARAKAT DO S Ot G47.33 OBSTRUCTIVE SLEEP APNEA (ADULT) (PEDIATR 06/16/2017 LITA BARAKAT DO S Ot I10 ESSENTIAL (PRIMARY) HYPERTENSION 06/16/2017 LITA BARAKAT DO S Ot I25.10 ATHSCL HEART DISEASE OF [place] CORONARY 06/16/2017 LITA BARAKAT DO S Ot I25.2 OLD MYOCARDIAL INFARCTION 06/16/2017 LITA BARAKAT DO S Ot I65.23 OCCLUSION AND STENOSIS OF BILATERAL [place]ZZI 06/16/2017 LITA BARAKAT DO S Ot I95.9 HYPOTENSION, UNSPECIFIED 06/16/2017 LITA BARAKAT DO S Ot J44.1 CHRONIC OBSTRUCTIVE PULMONARY DISEASE W 06/16/2017 LITA BARAKAT DO S Ot J96.01 ACUTE RESPIRATORY FAILURE WITH HYPOXIA 06/16/2017 LITA BARAKAT DO S Ot N17.9 ACUTE KIDNEY FAILURE, UNSPECIFIED 06/16/2017 LITA BARAKAT DO S Ot Z79.4 SENIOR CARE (CURRENT) USE OF INSULIN 06/16/2017 LITA BARAKAT DO S Ot Z85.828 PERSONAL HISTORY OF OTHER MALIGNANT NEOP 06/16/2017 LITA BARAKAT DO S Ot Z87.891 PERSONAL HISTORY OF NICOTINE DEPENDENCE 06/16/2017 LITA BARAKAT DO S Ot 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 ANGIOPLASTY IMPLANT 06/20/2017 LITA BARAKAT DO S Ot D64.9 ANEMIA, UNSPECIFIED 06/20/2017 LITA BARAKAT DO Ot E11.9 TYPE 2 DIABETES MELLITUS WITHOUT COMPLIC 06/20/2017 LITA BARAKAT DO Ot E78.00 PURE HYPERCHOLESTEROLEMIA, UNSPECIFIED 06/20/2017 LITA BARAKAT DO Ot E87.2 ACIDOSIS 06/20/2017 LITA BARAKAT DO Ot G47.33 OBSTRUCTIVE SLEEP APNEA (ADULT) (PEDIATR 06/20/2017 LITA BARAKAT DO Ot H91.90 UNSPECIFIED HEARING LOSS, UNSPECIFIED EA 06/20/2017 LITA BARAKAT DO Ot I10 ESSENTIAL (PRIMARY) HYPERTENSION 06/20/2017 LITA BARAKAT DO S Ot I25.10 ATHSCL HEART DISEASE OF [place] CORONARY 06/20/2017 LITA BARAKAT DO Ot J18.9 [...] RESUSCITATE 06/20/2017 LITA BARAKAT DO Ot Z79.4 TESTER EQUIPMENT (CURRENT) USE OF INSULIN 06/20/2017 LITA BARAKAT [...] DO Ot I25.10 ATHSCL HEART DISEASE OF [place] CORONARY 06/21/2017 LITA BARAKAT DO Ot J18.9 [...] RESUSCITATE 06/21/2017 LITA BARAKAT DO Ot Z79.4 TESTER EQUIPMENT (CURRENT) USE OF INSULIN 06/21/2017 LITA BARAKAT [...] DO Ot I25.10 ATHSCL HEART DISEASE OF [place] CORONARY 06/21/2017 LITA BARAKAT DO Ot J18.9 [...] RESUSCITATE 06/21/2017 LITA BARAKAT DO Ot Z79.4 TESTER EQUIPMENT (CURRENT) USE OF INSULIN 06/21/2017 LITA BARAKAT [...] J84.9 INTERSTITIAL PULMONARY DISEASE, UNSPECIF 08/02/2017 LITA BARAKAT DO Ot J44.9 CHRONIC OBSTRUCTIVE PULMONARY DISEASE, U 08/15/2017 LITA BARAKAT DO Ot J44.9 CHRONIC OBSTRUCTIVE PULMONARY DISEASE, U 10/15/2017 MAX SHAFFER, KOBY S Ot E11. 9 TYPE 2 DIABETES MELLITUS WITHOUT COMPLIC 10/15/2017 KOBY SANTANA MD Ot E78. 00 PURE HYPERCHOLESTEROLEMIA, UNSPECIFIED 10/15/2017 KOBY SANTANA MD Ot I10 ESSENTIAL (PRIMARY) HYPERTENSION 10/15/2017 KOBY SANTANA MD Ot I25. 10 ATHSCL HEART DISEASE OF [place] CORONARY 10/15/2017 KOBY SANTANA MD Ot I25. 2 OLD MYOCARDIAL INFARCTION 10/15/2017 KOBY SANTANA MD Ot J43. 9 EMPHYSEMA, UNSPECIFIED 10/15/2017 KOBY SANTANA MD Ot S61.214A LACERATION W/O FB OF R RNG FNGR W/O JESSE 10/15/2017 KOBY SANTANA MD Ot S66.324A LACERAT EXTN MUSC/FASC/TEND R RNG FNGR A 10/15/2017 KOBY SANTANA MD Ot W29.8XXA CNTCT WITH OTHER POWERED HAND TOOLS AND 10/15/2017 KOBY SANTANA MD Ot Z79. 4 TESTER EQUIPMENT (CURRENT) USE OF INSULIN 10/15/2017 KOBY SANTANA MD Ot Z79. 82 SENIOR CARE (CURRENT) USE OF ASPIRIN 10/15/2017 KOBY SANTANA [...] TYPE 2 DIABETES MELLITUS WITHOUT COMPLIC 10/17/2017 MAX SHAFFER, KOBY Man Ot E78. 00 PURE HYPERCHOLESTEROLEMIA, UNSPECIFIED 10/17/2017 KOBY SANTANA MD Ot I10 ESSENTIAL (PRIMARY) HYPERTENSION 10/17/2017 KOBY SANTANA MD Ot I25. 10 ATHSCL HEART DISEASE OF [place] CORONARY 10/17/2017 KOBY SANTANA MD Ot I25. 2 OLD MYOCARDIAL INFARCTION 10/17/2017 KOBY SANTANA MD Ot J43. 9 EMPHYSEMA, UNSPECIFIED 10/17/2017 KOBY SANTANA MD Ot S61.214A LACERATION W/O FB OF R RNG FNGR W/O JESSE 10/17/2017 KOBY SANTANA MD, Ot S66.324A LACERAT EXTN MUSC/FASC/TEND R RNG FNGR A 10/17/2017 KOBY SANTANA MD, Ot W29.8XXA CNTCT WITH OTHER POWERED HAND TOOLS AND 10/17/2017 KOBY SANTANA MD Ot Z79. 4 TESTER EQUIPMENT (CURRENT) USE OF INSULIN 10/17/2017 KOBY SANTANA MD Ot Z79. 82 SENIOR CARE (CURRENT) USE OF ASPIRIN 10/17/2017 KOBY SANTANA [...] APRN Ot I25.10 ATHSCL HEART DISEASE OF [place] CORONARY 12/26/2017 TATA HERMOSILLO APRN Ot I25 .2 OLD MYOCARDIAL INFARCTION 12/26/2017 TATA HERMOSILLO APRN Ot J44 .1 CHRONIC OBSTRUCTIVE PULMONARY DISEASE W 12/26/2017 TATA HERMOSILLO APRN Ot R05 COUGH 12/26/2017 TATA HERMOSILLO APRN Ot Z79.02 TESTER EQUIPMENT (CURRENT) USE OF ANTITHROMBOTI 12/26/2017 TATA HERMOSILLO APRN Ot Z79.51 SENIOR CARE (CURRENT) USE OF INHALED STERO 12/26/2017 TATA HERMOSILLO APRN Ot Z79.52 TESTER EQUIPMENT (CURRENT) USE OF SYSTEMIC STER 12/26/2017 TATA HERMOSILLO APRN Ot Z79.84 TESTER EQUIPMENT (CURRENT) USE OF ORAL HYPOGLYC 12/26/2017 TATA HERMOSILLO APRN Ot Z80 .0 FAMILY HISTORY OF MALIGNANT NEOPLASM OF 12/26/2017 TATA HERMOSILLO APRN Ot Z85.828 PERSONAL HISTORY OF OTHER MALIGNANT NEOP 12/26/2017 TATA HERMOSILLO APRN Ot Z87.01 PERSONAL HISTORY OF PNEUMONIA (RECURRENT 12/26/2017 TATA HERMOSILLO APRN Ot Z87.19 PERSONAL HISTORY OF OTHER DISEASES OF TH 12/26/2017 TATA HERMOSILLO APRN Ot Z87.891 PERSONAL HISTORY OF NICOTINE DEPENDENCE 12/26/2017 TATA HERMOSILLO APRN Ot Z95 .5 PRESENCE OF CORONARY ANGIOPLASTY IMPLANT 12/28/2017 KENDALL HARRISBENGINO Harper APRN Ot M25.561 PAIN IN RIGHT KNEE 01/01/2018 TATA HERMOSILLO APRN Ot E11 .9 TYPE 2 DIABETES MELLITUS WITHOUT COMPLIC 01/01/2018 TATA HERMOSILLO APRN Ot E78.00 PURE HYPERCHOLESTEROLEMIA, UNSPECIFIED 01/01/2018 TATA HERMOSILLO APRN Ot G47.30 SLEEP APNEA, UNSPECIFIED 01/01/2018 TATA HERMOSILLO APRN Ot I10 ESSENTIAL (PRIMARY) HYPERTENSION 01/01/2018 TATA HERMOSILLO APRN Ot I25.10 ATHSCL HEART DISEASE OF [place] CORONARY 01/01/2018 TATA HERMOSILLO APRN Ot I25 .2 OLD MYOCARDIAL INFARCTION 01/01/2018 TATA HERMOSILLO APRN Ot J44 .1 CHRONIC OBSTRUCTIVE PULMONARY DISEASE W 01/01/2018 TATA HERMOSILLO APRN Ot R05 COUGH 01/01/2018 TATA HERMOSILLO APRN Ot Z79.02 SENIOR CARE (CURRENT) USE OF ANTITHROMBOTI 01/01/2018 TATA HERMOSILLO APRN Ot Z79.51 TESTER EQUIPMENT (CURRENT) USE OF INHALED STERO 01/01/2018 TATA HERMOSILLO APRN Ot Z79.52 SENIOR CARE (CURRENT) USE OF SYSTEMIC STER 01/01/2018 TATA HERMOSILLO APRN Ot Z79.84 SENIOR CARE (CURRENT) USE OF ORAL HYPOGLYC 01/01/2018 TATA HERMOSILLO APRN Ot Z80 .0 FAMILY HISTORY OF MALIGNANT NEOPLASM OF 01/01/2018 TATA HERMOSILLO APRN Ot Z85.828 PERSONAL HISTORY OF OTHER MALIGNANT NEOP 01/01/2018 TATA HERMOSILLO MEDICAL OFFICE MANAGER Ot Z87.01 PERSONAL HISTORY OF PNEUMONIA (RECURRENT 01/01/2018 TATA HERMOSILLO MEDICAL OFFICE MANAGER Ot Z87.19 PERSONAL HISTORY OF OTHER DISEASES OF TH 01/01/2018 TATA HERMOSILLO MEDICAL OFFICE MANAGER Ot Z87.891 PERSONAL HISTORY OF NICOTINE DEPENDENCE 01/01/2018 TATA HERMOSILLO MEDICAL OFFICE MANAGER Ot Z95 .5 PRESENCE OF CORONARY ANGIOPLASTY IMPLANT 04/19/2018 LITA BARAKAT DO S Ot E11.9 TYPE 2 DIABETES MELLITUS WITHOUT COMPLIC 04/19/2018 JERMAIN BARAKAT DOLINE S Ot E78.00 PURE HYPERCHOLESTEROLEMIA, UNSPECIFIED 04/19/2018 JERMAIN BARAKAT DOLINE S Ot G47.30 SLEEP APNEA, UNSPECIFIED 04/19/2018 JERMAIN BARAKAT DOLINE S Ot H91.90 UNSPECIFIED HEARING LOSS, UNSPECIFIED EA 04/19/2018 JERMAIN BARAKAT DOLINE S Ot I10 ESSENTIAL (PRIMARY) HYPERTENSION 04/19/2018 JERMAIN BARAKAT DOLINE S Ot I25.10 ATHSCL HEART DISEASE OF [place] CORONARY 04/19/2018 JERMAIN BARAKAT DOLINE S Ot I25.2 OLD MYOCARDIAL INFARCTION 04/19/2018 JERMAIN BARAKAT DOLINE S Ot J18.9 PNEUMONIA, UNSPECIFIED ORGANISM 04/19/2018 JERMAIN BARAKAT DOLINE S Ot J43.9 EMPHYSEMA, UNSPECIFIED 04/19/2018 JERMAIN BARAAKT DOLINE S Ot K52.9 NONINFECTIVE GASTROENTERITIS AND COLITIS 04/19/2018 JERMAIN BARAKAT DOLINE S Ot L40.9 PSORIASIS, UNSPECIFIED 04/19/2018 JERMAIN BARAKAT DOLINE S Ot L57.0 ACTINIC KERATOSIS 04/19/2018 JERMAIN BARAKAT DOLINE S Ot N28.9 DISORDER OF KIDNEY AND URETER, UNSPECIFI 04/19/2018 LITA BARAKAT DO S Ot Z79.4 TESTER EQUIPMENT (CURRENT) USE OF INSULIN 04/19/2018 LITA BARAKAT DO S Ot Z85.828 PERSONAL HISTORY OF OTHER MALIGNANT NEOP 04/19/2018 LITA BARAKAT DO S Ot Z87.891 PERSONAL HISTORY OF NICOTINE DEPENDENCE 04/19/2018 LITA BARAKAT DO Ot Z91.19 PATIENT'S NONCOMPLIANCE W [facility] 04/19/2018 LITA BARAKAT DO Ot 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 ANGIOPLASTY IMPLANT 04/19/2018 LITA BARAKAT DO Ot 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 04/20/2018 LITA BARAKAT DO S Ot E11.9 TYPE 2 DIABETES MELLITUS WITHOUT COMPLIC 04/20/2018 LITA BARAKAT DO Ot E78.00 PURE HYPERCHOLESTEROLEMIA, UNSPECIFIED 04/20/2018 LITA BARAKAT DO S Ot G47.30 SLEEP APNEA, UNSPECIFIED 04/20/2018 LITA BARAKAT DO S Ot H91.90 UNSPECIFIED HEARING LOSS, UNSPECIFIED EA 04/20/2018 LITA BARAKAT DO S Ot I10 ESSENTIAL (PRIMARY) HYPERTENSION 04/20/2018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 RELATED TO PRIM 12/24/2018 JASMINNDER LITA S Ot Z66 DO NOT RESUSCITATE 12/24/2018 GASPER JOHNSON LITA S Ot Z79.4 TESTER EQUIPMENT (CURRENT) USE OF INSULIN 12/24/2018 GASPER JOHNSON LITA S Ot Z85.828 PERSONAL HISTORY OF OTHER MALIGNANT NEOP 12/24/2018 GASPER JOHNSON LITA S Ot Z87.891 PERSONAL HISTORY OF NICOTINE DEPENDENCE 12/24/2018 GASPER JOHNSON LITA S Ot Z91.19 PATIENT'S NONCOMPLIANCE W [facility] 12/24/2018 GASPER JOHNSON LITA S Ot Z95.5 PRESENCE OF [...] APRN Ot I25.10 ATHSCL HEART DISEASE OF [place] CORONARY 12/26/2018 TATA HERMOSILLO APRN Ot I25 .2 OLD MYOCARDIAL INFARCTION 12/26/2018 TATA HERMOSILLO APRN Ot J44 .1 CHRONIC OBSTRUCTIVE PULMONARY DISEASE W 12/26/2018 TATA HERMOSILLO APRN Ot K21 .9 GASTRO-ESOPHAGEAL REFLUX DISEASE WITHOUT 12/26/2018 TATA HERMOSILLO APRN Ot R06.02 SHORTNESS OF BREATH 12/26/2018 TATA HERMOSILLO APRN Ot Z79 .4 SENIOR CARE (CURRENT) USE OF INSULIN 12/26/2018 TATA HERMOSILLO APRN Ot Z79.52 TESTER EQUIPMENT (CURRENT) USE OF SYSTEMIC STER 12/26/2018 TATA HERMOSILLO APRN Ot Z79.82 SENIOR CARE (CURRENT) USE OF ASPIRIN 12/26/2018 TATA HERMOSILLO [...] 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 12/28/2018 JASMINNDER DOALIZELITA S Ot 496 12/28/2018 JASMINNDER ALIZE JOHNSONLITA S Ot V57.89 12/28/2018 JASMINNDALIZE PABLO DOQUELINE S Ot E11.65 TYPE 2 DIABETES MELLITUS WITH HYPERGLYCE 12/28/2018 JASMINNDER DO LITA S Ot E78.2 MIXED HYPERLIPIDEMIA 12/28/2018 JASMINNDER DO LITA S Ot F41.9 ANXIETY DISORDER, UNSPECIFIED 12/28/2018 JASMINNDER DO LITA S Ot G20 PARKINSON'S DISEASE 12/28/2018 JASMINNDER DO LITA S Ot G25.81 RESTLESS LEGS SYNDROME 12/28/2018 JASMINNDER ALIZE JOHNSONLITA S Ot G47.30 SLEEP APNEA, UNSPECIFIED 12/28/2018 JASMINNDALIZE PABLO DOQUELINE S Ot I10 ESSENTIAL (PRIMARY) HYPERTENSION 12/28/2018 LITA BARAKAT DO Ot I25.10 ATHSCL HEART DISEASE OF [place] CORONARY 12/28/2018 LITA BARAKAT DO Ot I25.2 OLD MYOCARDIAL INFARCTION 12/28/2018 LITA BARAKAT DO Ot J44.1 CHRONIC OBSTRUCTIVE PULMONARY DISEASE W 12/28/2018 LITA BARAKAT DO S Ot 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 [place] 12/28/2018 LITA BARAKAT DO S Ot K21.9 GASTRO-ESOPHAGEAL REFLUX DISEASE WITHOUT 12/28/2018 LITA BARAKAT DO S Ot L30.9 DERMATITIS, UNSPECIFIED 12/28/2018 LITA BARAKAT DO S Ot M19.91 PRIMARY OSTEOARTHRITIS, UNSPECIFIED SITE 12/28/2018 LITA BARAKAT DO Ot Z63.8 OTHER SPECIFIED PROBLEMS RELATED TO PRIM 12/28/2018 LITA BARAKAT DO Ot Z66 DO NOT RESUSCITATE 12/28/2018 LITA BARAKAT DO Ot Z79.4 SENIOR CARE (CURRENT) USE OF INSULIN 12/28/2018 LITA BARAKAT DO S Ot Z85.828 PERSONAL HISTORY OF OTHER MALIGNANT NEOP 12/28/2018 LITA BARAKAT DO S Ot Z87.891 PERSONAL HISTORY OF NICOTINE DEPENDENCE 12/28/2018 LITA BARAKAT DO S Ot Z91.19 PATIENT'S NONCOMPLIANCE W [facility] 12/28/2018 LITA BARAKAT DO Ot 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 ANGIOPLASTY IMPLANT 12/28/2018 LITA BARAKAT DO Ot E11.40 TYPE 2 DIABETES MELLITUS WITH DIABETIC N 12/28/2018 LITA BARAKAT DO S Ot E78.00 PURE HYPERCHOLESTEROLEMIA, UNSPECIFIED 12/28/2018 LITA BARAKAT DO S Ot E87.2 ACIDOSIS 12/28/2018 LITA BARAKAT DO S Ot F41.9 ANXIETY DISORDER, UNSPECIFIED 12/28/2018 LITA BARAKAT DO S Ot G25.81 RESTLESS LEGS SYNDROME 12/28/2018 LITA BARAKAT DO S Ot G47.30 SLEEP APNEA, UNSPECIFIED 12/28/2018 LITA BARAKAT DO S Ot I10 ESSENTIAL (PRIMARY) HYPERTENSION 12/28/2018 LITA BARAKAT DO S Ot I25.10 ATHSCL HEART DISEASE OF [place] CORONARY 12/28/2018 LITA BARAKAT DO S Ot I25.2 OLD MYOCARDIAL INFARCTION 12/28/2018 LITA BARAKAT DO S Ot J44.0 CHRONIC OBSTRUCTIVE PULMON DISEASE W [facility] 12/28/2018 LITA BARAKAT DO S Ot J44.1 CHRONIC OBSTRUCTIVE PULMONARY DISEASE W 12/28/2018 LITA BARAKAT DO S Ot J96.20 ACUTE [...] DO S Ot Z91.19 PATIENT'S NONCOMPLIANCE W [facility] 12/28/2018 LITA BARAKAT DO S Ot 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 ANGIOPLASTY IMPLANT 12/28/2018 LITA BARAKAT DO S Ot 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 12/30/2018 JERMAIN BARAKAT DOLINE S Ot E11.40 TYPE 2 DIABETES MELLITUS WITH DIABETIC N 12/30/2018 LITA BARAKAT DO S Ot E78.00 PURE HYPERCHOLESTEROLEMIA, UNSPECIFIED 12/30/2018 JERMAIN BARAKAT DOLINE S Ot E87.2 ACIDOSIS 12/30/2018 LITA BARAKAT DO S Ot F41.9 ANXIETY DISORDER, UNSPECIFIED 12/30/2018 LITA BARAKAT DO S Ot G25.81 RESTLESS LEGS SYNDROME 12/30/2018 JERMAIN BARAKAT DOLINE S Ot G47.30 SLEEP APNEA, UNSPECIFIED 12/30/2018 JERMAIN BARAKAT DOLINE S Ot I10 ESSENTIAL (PRIMARY) HYPERTENSION 12/30/2018 ARMIN LITA JOHNSON S Ot I25.10 ATHSCL HEART DISEASE OF [place] CORONARY 12/30/2018 JASMINNDLITA PABLO DO S Ot I25.2 OLD MYOCARDIAL INFARCTION [...] DO S Ot Z91.19 PATIENT'S NONCOMPLIANCE W [facility] 12/30/2018 LITA BARAKAT DO S Ot 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 ANGIOPLASTY IMPLANT 12/30/2018 LITA BARAKAT DO S Ot 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 12/30/2018 LITA BARAKAT DO S Ot E11.40 TYPE 2 DIABETES MELLITUS WITH DIABETIC N 12/30/2018 LITA BARAKAT DO S Ot E78.00 PURE HYPERCHOLESTEROLEMIA, UNSPECIFIED 12/30/2018 JERMAIN BARAKAT DOLINE S Ot E87.2 ACIDOSIS 12/30/2018 LITA BARAKAT DO S Ot F41.9 ANXIETY DISORDER, UNSPECIFIED 12/30/2018 LITA BARAKAT DO S Ot G25.81 RESTLESS LEGS SYNDROME 12/30/2018 LITA BARAKAT DO S Ot G47.30 SLEEP APNEA, UNSPECIFIED 12/30/2018 LITA BARAKAT DO S Ot I10 ESSENTIAL (PRIMARY) HYPERTENSION 12/30/2018 LITA BARAKAT DO S Ot I25.10 ATHSCL HEART DISEASE OF [place] CORONARY 12/30/2018 LITA BARAKAT DO S Ot [...] DO S Ot Z91.19 PATIENT'S NONCOMPLIANCE W [facility] 12/30/2018 LITA BARAKAT DO S Ot 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 ANGIOPLASTY IMPLANT 12/30/2018 LITA BARAKAT DO S Ot 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 12/30/2018 EJRMAIN BARAKAT DOLINE S Ot E11.65 TYPE 2 DIABETES MELLITUS WITH HYPERGLYCE 12/30/2018 JERMAIN BARAKAT DOLINE S Ot E78.2 MIXED HYPERLIPIDEMIA 12/30/2018 LITA BARAKAT DO S Ot F41.9 ANXIETY DISORDER, UNSPECIFIED 12/30/2018 JERMAIN BARAKAT DOLINE S Ot G20 PARKINSON'S DISEASE 12/30/2018 ARMIN JERMAIN JOHNSONLINE S Ot G25.81 RESTLESS LEGS SYNDROME 12/30/2018 JERMAIN BARAKAT DOLINE S Ot G47.30 SLEEP APNEA, UNSPECIFIED 12/30/2018 JERMAIN BARAKAT DOLINE S Ot I10 ESSENTIAL (PRIMARY) HYPERTENSION 12/30/2018 JERMAIN BARAKAT DOLINE S Ot I25.10 ATHSCL HEART DISEASE OF [place] CORONARY 12/30/2018 JERMAIN BARAKAT DOLINE S Ot I25.2 OLD MYOCARDIAL INFARCTION 12/30/2018 LITA BARAKAT DO Ot J44.1 CHRONIC OBSTRUCTIVE PULMONARY DISEASE W 12/30/2018 LITA BARAKAT DO Ot 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 [place] 12/30/2018 LITA BARAKAT DO Ot K21.9 GASTRO-ESOPHAGEAL REFLUX DISEASE WITHOUT 12/30/2018 LITA BARAKAT DO Ot L30.9 DERMATITIS, UNSPECIFIED 12/30/2018 LITA BARAKAT DO Ot M19.91 PRIMARY OSTEOARTHRITIS, UNSPECIFIED SITE 12/30/2018 ALIZE BARAKAT DOQUEJESSICA Man Ot Z63.8 OTHER SPECIFIED PROBLEMS RELATED TO PRIM 12/30/2018 LITA BARAKAT DO Ot Z66 DO NOT RESUSCITATE 12/30/2018 LITA BARAKAT DO Ot Z79.4 TESTER EQUIPMENT (CURRENT) USE OF INSULIN 12/30/2018 LITA BARAKAT DO Ot Z85.828 PERSONAL HISTORY OF OTHER MALIGNANT NEOP 12/30/2018 LITA BARAKAT DO Ot Z87.891 PERSONAL HISTORY OF NICOTINE DEPENDENCE 12/30/2018 ALIZE BARAKAT DOQUEJESSICA Man Ot Z91.19 PATIENT'S NONCOMPLIANCE W OT MEDICAL TR 12/30/2018 LITA BARAKAT DO Ot 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 ANGIOPLASTY IMPLANT 01/08/2019 Ot 251.2 01/08/2019 Ot 959.19 OTH INJURY OF OTHER SITES OF TRUNK 01/08/2019 Ot E000.8 OT ER EXTERNAL CAUSE STATUS 01/08/2019 Ot E030 UNSPE CIFIED ACTIVITY 01/08/2019 Ot E849.0 ACC IDENT IN HOME 01/08/2019 Ot E928.9 ACC IDENT NOS 01/08/2019 Ot 786.05 ALEJANDRA RTNESS OF BREATH 01/08/2019 LITA BARAKAT DO Ot 486 PNEUMONIA, ORGANISM NOS 01/08/2019 LITA BARAKAT DO Ot 496 CHR AIRWAY OBSTRUCT NEC 01/08/2019 LITA BARAKAT DO Ot 786.09 RESPIRATORY ABNORM NEC 01/08/2019 LITA BARAKAT DO Ot 786.50 CHEST PAIN NOS 01/08/2019 ORENDER DO, LITA S Ot V17.3 FAM HX-ISCHEM HEART DIS 01/08/2019 JASMINNDER JERMAIN JOHNSONLINE S Ot 486 PNEUMONIA, ORGANISM NOS 01/08/2019 JASMINNDER , LITA S Ot 496 CHR AIRWAY OBSTRUCT NEC 01/08/2019 JASMINNDER , LITA S Ot 786.09 RESPIRATORY ABNORM NEC 01/08/2019 JASMINNDER , LITA S Ot 786.50 CHEST PAIN NOS 01/08/2019 JASMINNDER , LITA S Ot V17.3 FAM HX-ISCHEM HEART DIS 01/08/2019 JASMINNDER DO, LITA S Ot 496 CHR AIRWAY OBSTRUCT NEC 01/08/2019 RAKEL THORPE DO Ot 278. 00 OBESITY, NOS 01/08/2019 RAKEL THORPE DO Ot 496 CHR AIRWAY OBSTRUCT NEC 01/08/2019 RAKEL THORPE DO Ot 786. 09 RESPIRATORY ABNORM NEC 01/08/2019 JASMINNDER , LITA S Ot 496 01/08/2019 JASMINNDER LITA S Ot V57.89 01/08/2019 JASMINNDER LITA S Ot K11.6 MUCOCELE OF SALIVARY GLAND 01/08/2019 JASMINNDER LITA S Ot R22.1 LOCALIZED SWELLING, MASS AND LUMP, NECK 01/08/2019 GASPER JOHNSON LITA S Ot M79.671 PAIN IN RIGHT FOOT 01/08/2019 JOYCE KAYE MEDICAL OFFICE MANAGER Ot R91.1 SOLITARY PULMONARY NODULE 01/08/2019 JARAD COPPOLA MEDICAL OFFICE MANAGER Ot R06.02 SHORTNESS OF BREATH 01/08/2019 JARAD COPPOLA MEDICAL OFFICE MANAGER Ot R07.9 CHEST PAIN, UNSPECIFIED 01/08/2019 JARAD COPPOLA MEDICAL OFFICE MANAGER Ot R53.83 OTHER FATIGUE 01/08/2019 RANDI SHAFFER FACJosé, TARI FACP CCDS Ot I25.10 ATHSCL HEART DISEASE OF [place] CORONARY 01/08/2019 RANDI SHAFFER FACJosé, ALI FACP CCDS Ot R06.02 SHORTNESS OF BREATH 01/08/2019 RAKEL THORPE DO Ot J43. 8 OTHER EMPHYSEMA 01/08/2019 RAKEL THORPE DO Ot R06. 00 DYSPNEA, UNSPECIFIED 01/08/2019 RAKEL THORPE DO Ot R91. 1 SOLITARY PULMONARY NODULE 01/08/2019 RAKEL THORPE DO Ot Z87.891 PERSONAL HISTORY OF NICOTINE DEPENDENCE 01/08/2019 ARMINBEV DO LITA S Ot D64.9 ANEMIA, UNSPECIFIED 01/08/2019 CASSIA THOMPSON Ot S49.92XA UNSP INJURY OF LEFT SHOULDER AND UPPER A 01/08/2019 CASSIA THOMPSON Ot W19.XXXA UNSPECIFIED FALL, INITIAL ENCOUNTER 01/08/2019 CASSIA THOMPSON Ot Y99.8 OTHER EXTERNAL CAUSE STATUS 01/08/2019 GASPER JOHNSON LITA S Ot J84.9 INTERSTITIAL PULMONARY DISEASE, UNSPECIF 01/08/2019 GASPER JOHNSON LITA S Ot J44.9 CHRONIC OBSTRUCTIVE PULMONARY DISEASE, U 01/08/2019 HARRIS ARGUETA APRN Ot M25.561 PAIN IN RIGHT KNEE 01/08/2019 ALIZE BARAKAT DOQUELINE S Ot R05 COUGH 01/08/2019 GASPER JOHNSON LITA S Ot R06.00 DYSPNEA, UNSPECIFIED 01/08/2019 JAY SHAFFER, SAMUEL Contreras Ot S42.025D NONDISP FX OF SHAFT OF L CLAVICLE, SUBS 01/08/2019 Ot 251.2 01/08/2019 Ot 786.05 ALEJANDRA RTNESS OF BREATH 01/08/2019 GASPER JOHNSON LITA S Ot 486 PNEUMONIA, ORGANISM NOS 01/08/2019 GASPER JOHNSON LITA S Ot 496 CHR AIRWAY OBSTRUCT NEC 01/08/2019 GASPER JOHNSON LITA S Ot 786.09 RESPIRATORY ABNORM NEC 01/08/2019 GASPER JOHNSON LITA S Ot 786.50 CHEST PAIN NOS 01/08/2019 GSAPER JOHNSON LITA S Ot 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 00 OBESITY, NOS 01/08/2019 RAKEL THORPE DO Ot 496 CHR AIRWAY OBSTRUCT NEC 01/08/2019 RAKEL THORPE DO Ot 786. 09 RESPIRATORY ABNORM NEC 01/08/2019 LITA BARAKAT DO S Ot 496 01/08/2019 GASPER JOHNSON LITA S Ot V57.89 01/08/2019 GASPER JOHNSON LITA S Ot K11.6 MUCOCELE OF SALIVARY [place]AND 01/08/2019 GASPER JOHNSON LITA S Ot R22.1 LOCALIZED SWELLING, MASS AND LUMP, NECK 01/08/2019 GASPER JOHNSON LITA S Ot M79.671 PAIN IN RIGHT FOOT 01/08/2019 JOYCE KAYE MEDICAL OFFICE MANAGER Ot R91.1 SOLITARY PULMONARY NODULE 01/08/2019 JARAD COPPOLA MEDICAL OFFICE MANAGER Ot R06.02 SHORTNESS OF BREATH 01/08/2019 JARAD COPPOLA MEDICAL OFFICE MANAGER Ot R07.9 CHEST PAIN, UNSPECIFIED 01/08/2019 JARAD COPPOLA MEDICAL OFFICE MANAGER Ot R53.83 OTHER FATIGUE 01/08/2019 RANDI SHAFFER FACC, ALI FACP CCDS Ot I25.10 ATHSCL HEART DISEASE OF [place] CORONARY 01/08/2019 RANDI SHAFFER FACC, ALI FACP CCDS Ot R06.02 SHORTNESS OF BREATH 01/08/2019 RAKEL THORPE DO Ot J43. 8 OTHER EMPHYSEMA 01/08/2019 RAKEL THORPE DO Ot R06. 00 DYSPNEA, UNSPECIFIED 01/08/2019 RAKEL THORPE DO Ot R91. 1 SOLITARY PULMONARY NODULE 01/08/2019 RAKEL THORPE DO Ot Z87.891 PERSONAL HISTORY OF NICOTINE DEPENDENCE 01/08/2019 ARMINBEV LITA JOHNSON Ot D64.9 ANEMIA, UNSPECIFIED 01/08/2019 CASSIA THOMPSON Ot S49.92XA UNSP INJURY OF LEFT SHOULDER AND UPPER A 01/08/2019 CASSIA THOMPSON Ot W19.XXXA UNSPECIFIED FALL, INITIAL ENCOUNTER 01/08/2019 CASSIA THOMPSON Ot Y99.8 OTHER EXTERNAL CAUSE STATUS 01/08/2019 JASMINIRINA JOHNSONLITA S Ot J84.9 INTERSTITIAL PULMONARY DISEASE, UNSPECIF 01/08/2019 LITA BARAKAT DO Ot J44.9 CHRONIC OBSTRUCTIVE PULMONARY DISEASE, U 01/08/2019 HARRIS ARGUETA MEDICAL OFFICE MANAGER Ot M25.561 PAIN IN RIGHT KNEE 01/08/2019 JASMINNDER , LITA S Ot R05 COUGH 01/08/2019 GASPER JOHNSON, LITA S Ot R06.00 DYSPNEA, UNSPECIFIED 01/08/2019 JAY SHAFFER, SAMUEL Contreras Ot S42.025D NONDISP FX OF SHAFT OF L CLAVICLE, SUBS 01/20/2019 ARMNIER , LITA S Ot 486 PNEUMONIA, ORGANISM NOS 01/20/2019 JASMINNDER DO, LITA S Ot 496 CHR AIRWAY OBSTRUCT NEC 01/20/2019 JASMINNDER DO, LITA S Ot 786.09 RESPIRATORY ABNORM NEC 01/20/2019 JASMINNDER , LITA S Ot 786.50 CHEST PAIN NOS 01/20/2019 GASPER JOHNSON, LITA S Ot V17.3 FAM HX-ISCHEM HEART DIS 01/20/2019 GASPER JOHNSON, LITA S Ot 496 CHR AIRWAY OBSTRUCT NEC 01/20/2019 RAKEL THORPE DO Ot 278. 00 OBESITY, NOS 01/20/2019 RAKEL THORPE DO Ot 496 CHR AIRWAY OBSTRUCT NEC 01/20/2019 RAKEL THORPE DO Ot 786. 09 RESPIRATORY ABNORM NEC 01/20/2019 ARMINER , LITA S Ot 496 01/20/2019 GASPER JOHNSON, LITA S Ot V57.89 01/20/2019 ARMINER LITA S Ot K11.6 MUCOCELE OF SALIVARY [place] 01/20/2019 ARMINER LITA S Ot R22.1 LOCALIZED SWELLING, MASS AND LUMP, NECK 01/20/2019 JASMINNDER , LITA S Ot M79.671 PAIN IN RIGHT FOOT 01/20/2019 JOYCE KAYE MEDICAL OFFICE MANAGER Ot R91.1 SOLITARY PULMONARY NODULE 01/20/2019 JARAD COPPOLA MEDICAL OFFICE MANAGER Ot R06.02 SHORTNESS OF BREATH 01/20/2019 JARAD COPPOLA MEDICAL OFFICE MANAGER Ot R07.9 CHEST PAIN, UNSPECIFIED 01/20/2019 JARAD COPPOLA MEDICAL OFFICE MANAGER Ot R53.83 OTHER FATIGUE 01/20/2019 RANDI SHAFFER FACC, TARI FACP CCDS Ot I25.10 ATHSCL HEART DISEASE OF [place] CORONARY 01/20/2019 RANDI SHAFFER FAC, ALI FACP [...] Ot Y99.8 OTHER EXTERNAL CAUSE STATUS 01/20/2019 LITA BARAKAT DO S Ot J84.9 INTERSTITIAL PULMONARY DISEASE, UNSPECIF 01/20/2019 LITA BARAKAT DO S Ot J44.9 CHRONIC OBSTRUCTIVE PULMONARY DISEASE, U 01/20/2019 HARRIS ARGUETA APRN Ot M25.561 PAIN IN RIGHT KNEE 01/20/2019 JERMAIN BARAKAT DOLINE S Ot R05 COUGH 01/20/2019 JERMAIN BARAKAT DOLINE S Ot R06.00 DYSPNEA, UNSPECIFIED 01/20/2019 JAY SHAFFER, SAMUEL Contreras Ot S42.025D NONDISP FX OF SHAFT OF L CLAVICLE, SUBS 02/24/2019 JERMAIN BARAKAT DOLINE S Ot 786.09 RESPIRATORY ABNORM NEC 02/24/2019 ALIZE BARAKAT DOQUELINE S Ot 786.50 CHEST PAIN NOS 02/24/2019 JERMAIN BARAKAT DOLINE S Ot 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 00 OBESITY, NOS 02/24/2019 RAKEL THORPE DO Ot 496 CHR AIRWAY OBSTRUCT NEC 02/24/2019 ILA DO, RAKEL M Ot 786. 09 RESPIRATORY ABNORM NEC 02/24/2019 GASPER JOHNSON LITA S Ot 496 02/24/2019 GASPER JOHNSON LITA S Ot V57.89 02/24/2019 GASPER JOHNSON LITA S Ot K11.6 MUCOCELE OF SALIVARY GLAND 02/24/2019 GASPER JOHNSON LITA S Ot R22.1 LOCALIZED SWELLING, MASS AND LUMP, NECK 02/24/2019 GASPER JOHNSONLITA S Ot M79.671 PAIN IN RIGHT FOOT 02/24/2019 JOYCE KAYE MEDICAL OFFICE MANAGER Ot R91.1 SOLITARY PULMONARY NODULE 02/24/2019 JARAD COPPOLA MEDICAL OFFICE MANAGER Ot R06.02 SHORTNESS OF BREATH 02/24/2019 JARAD COPPOLA MEDICAL OFFICE MANAGER Ot R07.9 CHEST PAIN, UNSPECIFIED 02/24/2019 JARAD COPPOLA MEDICAL OFFICE MANAGER Ot R53.83 OTHER FATIGUE 02/24/2019 RANDI SHAFFER FACC, ALI FACP CCDS Ot I25.10 ATHSCL HEART DISEASE OF [place] CORONARY 02/24/2019 RANDI SHAFFER FACC, ALI FACP CCDS Ot [...] EXTERNAL CAUSE STATUS 02/24/2019 LITA BARAKAT DO S Ot J84.9 INTERSTITIAL PULMONARY DISEASE, UNSPECIF 02/24/2019 LITA BARAKAT DO Ot J44.9 CHRONIC OBSTRUCTIVE PULMONARY DISEASE, U 02/24/2019 HARRIS ARGUETA KARSON Ot M25.561 PAIN IN RIGHT KNEE 02/24/2019 JASMINNDLITA PABLO DO S Ot R05 COUGH 02/24/2019 LITA BARAKAT DO S Ot R06.00 DYSPNEA, UNSPECIFIED 02/24/2019 JAY [...] APRN Ot I25.10 ATHSCL HEART DISEASE OF [place] CORONARY 03/08/2019 TATA HERMOSILLO APRN Ot I25 .2 OLD MYOCARDIAL INFARCTION 03/08/2019 TATA HERMOSILLO APRN Ot J44 .1 CHRONIC OBSTRUCTIVE PULMONARY DISEASE W 03/08/2019 TATA HERMOSILLO APRN Ot K21 .9 GASTRO-ESOPHAGEAL REFLUX DISEASE WITHOUT 03/08/2019 TATA HERMOSILLO APRN Ot R06.02 SHORTNESS OF BREATH 03/08/2019 TATA HERMOSILLO APRN Ot Z79 .4 SENIOR CARE (CURRENT) USE OF INSULIN 03/08/2019 TATA HERMOSILLO APRN Ot Z79.52 SENIOR CARE (CURRENT) USE OF SYSTEMIC STER 03/08/2019 TAAT HERMOSILLO APRN Ot Z79.82 SENIOR CARE (CURRENT) USE OF ASPIRIN 03/08/2019 TATA HERMOSILLO [...] APRN Ot I25.10 ATHSCL HEART DISEASE OF [place] CORONARY 03/11/2019 ATTA HERMOSILLO APRN Ot I25 .2 OLD MYOCARDIAL INFARCTION 03/11/2019 TATA HERMOSILLO APRN Ot J44 .1 CHRONIC OBSTRUCTIVE PULMONARY DISEASE W 03/11/2019 TATA HERMOSILLO APRN Ot K21 .9 GASTRO-ESOPHAGEAL REFLUX DISEASE WITHOUT 03/11/2019 TATA HERMOSILLO APRN Ot R06.02 SHORTNESS OF BREATH 03/11/2019 TATA HERMOSILLO APRN Ot Z79 .4 TESTER EQUIPMENT (CURRENT) USE OF INSULIN 03/11/2019 TATA HERMOSILLO APRN Ot Z79.52 TESTER EQUIPMENT (CURRENT) USE OF SYSTEMIC STER 03/11/2019 TATA HERMOSILLO APRN Ot Z79.82 SENIOR CARE (CURRENT) USE OF ASPIRIN 03/11/2019 TATA HERMOSILLO [...] OF CORONARY ANGIOPLASTY IMPLANT 03/11/2019 TATA HERMOSILLO MEDICAL OFFICE MANAGER Ot 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 03/24/2019 GASPER JOHNSON LITA S Ot 786.09 RESPIRATORY ABNORM NEC 03/24/2019 GASPER JOHNSON LITA S Ot 786.50 CHEST PAIN NOS 03/24/2019 [...] GASPER JOHNSON LITA S Ot 496 03/24/2019 GASPER JOHNSON LITA S Ot V57.89 03/24/2019 GASPER JOHNSON LITA S Ot K11.6 MUCOCELE OF SALIVARY GLAND 03/24/2019 GASPER JOHNSON LITA S Ot R22.1 LOCALIZED SWELLING, MASS AND LUMP, NECK 03/24/2019 GASPER JOHNSON LITA S Ot M79.671 PAIN IN RIGHT FOOT 03/24/2019 JOYCE KAYE MEDICAL OFFICE MANAGER Ot R91.1 SOLITARY PULMONARY NODULE 03/24/2019 JARAD COPPOLA MEDICAL OFFICE MANAGER Ot R06.02 SHORTNESS OF BREATH 03/24/2019 JARAD COPPOLA MEDICAL OFFICE MANAGER Ot R07.9 CHEST PAIN, UNSPECIFIED 03/24/2019 JARAD COPPOLA MEDICAL OFFICE MANAGER Ot R53.83 OTHER FATIGUE 03/24/2019 RANDI SHAFFER FAC, ALI FACP CCDS Ot I25.10 ATHSCL HEART DISEASE OF [place] CORONARY 03/24/2019 RANDI SHAFFER FACC, ALI FACP CCDS Ot R06.02 SHORTNESS OF BREATH 03/24/2019 RAKEL THORPE DO Ot J43. 8 OTHER EMPHYSEMA 03/24/2019 RAKEL THORPE DO Ot R06. 00 DYSPNEA, UNSPECIFIED 03/24/2019 RAKEL THORPE DO Ot R91. 1 SOLITARY PULMONARY NODULE 03/24/2019 RAKEL THORPE DO Ot Z87.891 PERSONAL HISTORY OF NICOTINE DEPENDENCE 03/24/2019 JERMAIN BARAKAT DOLINE S Ot D64.9 ANEMIA, UNSPECIFIED 03/24/2019 CASSIA THOMPSON Ot S49.92XA UNSP INJURY OF LEFT SHOULDER AND UPPER A 03/24/2019 CASSIA THOMPSON Ot W19.XXXA UNSPECIFIED FALL, INITIAL ENCOUNTER 03/24/2019 CASSIA THOMPSON Ot Y99.8 OTHER EXTERNAL CAUSE STATUS 03/24/2019 JERMAIN BARAKAT DOLINE S Ot J84.9 INTERSTITIAL PULMONARY DISEASE, UNSPECIF 03/24/2019 JERMAIN BARAKAT DOLINE S Ot J44.9 CHRONIC OBSTRUCTIVE PULMONARY DISEASE, U 03/24/2019 HARRIS ARGUETA APRN Ot M25.561 PAIN IN RIGHT KNEE 03/24/2019 JERMAIN BARAKAT DOLINE S Ot R05 COUGH 03/24/2019 ALIZE BARAKAT DOQUELINE S Ot R06.00 DYSPNEA, UNSPECIFIED 03/24/2019 JAY SHAFFER, SAMUEL Contreras Ot S42.025D NONDISP FX OF SHAFT OF L CLAVICLE, SUBS 03/25/2019 ALIZE BARAKAT DOQUELINE S Ot 496 03/25/2019 ALIZE BARAKAT DOQUELINE S Ot V57.89 03/26/2019 ALIZE BARAKAT DOQUELINE S Ot E11.9 TYPE 2 DIABETES MELLITUS WITHOUT COMPLIC 03/26/2019 ALIZE BARAKAT DOQUELINE S Ot E78.00 PURE HYPERCHOLESTEROLEMIA, UNSPECIFIED 03/26/2019 ALIZE BARAKAT DOQUELINE S Ot F41.9 ANXIETY DISORDER, UNSPECIFIED 03/26/2019 GASPER JOHNSON LITA S Ot G25.81 RESTLESS LEGS SYNDROME 03/26/2019 GASPER JOHNSON LITA S Ot G47.30 SLEEP APNEA, UNSPECIFIED 03/26/2019 ALIZE BARAKAT DOQUELINE S Ot I10 ESSENTIAL (PRIMARY) HYPERTENSION 03/26/2019 GASPER JOHNSON LITA S Ot I25.10 ATHSCL HEART DISEASE OF [place] CORONARY 03/26/2019 ALIZE BARAKAT DOQUELINE S Ot I25.2 OLD MYOCARDIAL INFARCTION 03/26/2019 ALIZE BARAKAT DOQUELINE S Ot J30.9 ALLERGIC RHINITIS, UNSPECIFIED 03/26/2019 GASPER JOHNSON LITA S Ot J44.1 CHRONIC OBSTRUCTIVE PULMONARY DISEASE W 03/26/2019 GASPER JOHNSON LITA S Ot 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 [place] 03/26/2019 JERMAIN BARAKAT DOLINE S Ot K21.9 GASTRO-ESOPHAGEAL REFLUX DISEASE WITHOUT 03/26/2019 GASPER JOHNSON LITA S Ot Z79.4 TESTER EQUIPMENT (CURRENT) USE OF INSULIN 03/26/2019 GASPER JOHNSON LITA S Ot Z87.891 PERSONAL HISTORY OF NICOTINE DEPENDENCE 03/26/2019 GASPER JOHNSON LITA S Ot Z91.19 PATIENT'S NONCOMPLIANCE W [facility] 03/26/2019 GASPER JOHNSON LITA S Ot 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 ANGIOPLASTY IMPLANT 03/28/2019 KENDALL, HARRIS R MEDICAL OFFICE MANAGER Ot R06.00 DYSPNEA, UNSPECIFIED 03/28/2019 KENDALL, HARRIS R MEDICAL OFFICE MANAGER Ot R42 DIZZINESS AND GIDDINESS 03/28/2019 KENDALL, HARRIS R MEDICAL OFFICE MANAGER Ot R06.00 DYSPNEA, UNSPECIFIED 03/28/2019 KENDALL, HARRIS R MEDICAL OFFICE MANAGER Ot R42 DIZZINESS AND GIDDINESS 04/07/2019 KENDALL, HARRIS R MEDICAL OFFICE MANAGER Ot R06.00 DYSPNEA, UNSPECIFIED 04/07/2019 KENDALL, HARRIS R MEDICAL OFFICE MANAGER Ot R42 DIZZINESS AND GIDDINESS 06/03/2019 GASPER JOHNSON LITA S Ot 786.09 RESPIRATORY ABNORM NEC 06/03/2019 GASPER JOHNSON LITA S Ot 786.50 CHEST PAIN NOS 06/03/2019 ARMINBEV DO LITA S Ot V17.3 FAM HX-ISCHEM HEART DIS 06/03/2019 JERMAIN BARAKAT DOLINE S Ot 496 CHR AIRWAY OBSTRUCT NEC 06/03/2019 RAKEL THORPE DO Ot 278. 00 OBESITY, NOS 06/03/2019 RAKEL THORPE DO Ot 496 CHR AIRWAY OBSTRUCT NEC 06/03/2019 RAKEL THORPE DO Ot 786. 09 RESPIRATORY ABNORM NEC 06/03/2019 JERMAIN BARAKAT DOLINE S Ot 496 06/03/2019 LITA BARAKAT DO S Ot V57.89 06/03/2019 GASPER JOHNSONALIZELITA S Ot K11.6 MUCOCELE OF SALIVARY GLAND 06/03/2019 GASPER JOHNSONLITA S Ot R22.1 LOCALIZED SWELLING, MASS AND LUMP, NECK 06/03/2019 GASPER JOHNSONLITA S Ot M79.671 PAIN IN RIGHT FOOT 06/03/2019 JOYCE KAYE MEDICAL OFFICE MANAGER Ot R91.1 SOLITARY PULMONARY NODULE 06/03/2019 JARAD COPPOLA MEDICAL OFFICE MANAGER Ot R06.02 SHORTNESS OF BREATH 06/03/2019 JARAD COPPOLA MEDICAL OFFICE MANAGER Ot R07.9 CHEST PAIN, UNSPECIFIED 06/03/2019 JARAD COPPOLA MEDICAL OFFICE MANAGER Ot R53.83 OTHER FATIGUE 06/03/2019 RANDI SHAFFER FAC, [facility] Ot I25.10 ATHSCL HEART DISEASE OF [place] CORONARY 06/03/2019 RANDI SHAFFER FAC, ALI [facility] CCDS Ot R06.02 SHORTNESS OF BREATH 06/03/2019 RAKEL THORPE DO Ot J43. 8 OTHER EMPHYSEMA 06/03/2019 RAKEL THORPE DO Ot R06. 00 DYSPNEA, UNSPECIFIED 06/03/2019 RAKEL THORPE DO Ot R91. 1 SOLITARY PULMONARY NODULE 06/03/2019 RAKEL THORPE DO Ot Z87.891 PERSONAL HISTORY OF NICOTINE DEPENDENCE 06/03/2019 LITA BARAKAT DO Ot D64.9 ANEMIA, UNSPECIFIED 06/03/2019 CASSIA THOMPSON Ot S49.92XA UNSP INJURY OF LEFT SHOULDER AND UPPER A 06/03/2019 CASSIA THOMPSON OIL EXPELLER Ot W19.XXXA UNSPECIFIED FALL, INITIAL ENCOUNTER 06/03/2019 CASSIA THOMPSONP Ot Y99.8 OTHER EXTERNAL CAUSE STATUS 06/03/2019 ARMINBEV LITA JOHNSON S Ot J84.9 INTERSTITIAL PULMONARY DISEASE, UNSPECIF 06/03/2019 LITA BARAKAT DO S Ot J44.9 CHRONIC OBSTRUCTIVE PULMONARY DISEASE, U 06/03/2019 HARRIS ARGUETA MEDICAL OFFICE MANAGER Ot M25.561 PAIN IN RIGHT KNEE 06/03/2019 LITA BARAKAT DO S Ot R05 COUGH 06/03/2019 JASMINNDER , LITA S Ot R06.00 DYSPNEA, UNSPECIFIED 06/03/2019 JAY SHAFFER, SAMUEL Contreras Ot S42.025D NONDISP FX OF SHAFT OF L CLAVICLE, SUBS 06/03/2019 KENDALLHARRIS MEDICAL OFFICE MANAGER Ot R06.00 DYSPNEA, UNSPECIFIED 06/03/2019 KENDALL, HARRIS R MEDICAL OFFICE MANAGER Ot R42 DIZZINESS AND GIDDINESS 06/24/2019 JASMINNDER , LITA S Ot 786.09 RESPIRATORY ABNORM NEC 06/24/2019 GASPER JOHNSON, LITA S Ot 786.50 CHEST PAIN NOS 06/24/2019 GASPER JOHNSON, LITA S Ot V17.3 FAM HX-ISCHEM HEART DIS 06/24/2019 ARMINER , LITA S Ot 496 CHR AIRWAY OBSTRUCT NEC 06/24/2019 RAKEL THORPE DO Ot 278. 00 OBESITY, NOS 06/24/2019 RAKEL THORPE DO Ot 496 CHR AIRWAY OBSTRUCT NEC 06/24/2019 RAKEL THORPE DO Ot 786. 09 RESPIRATORY ABNORM NEC 06/24/2019 ARMINER , LITA S Ot 496 06/24/2019 GASPER JOHNSON LITA S Ot V57.89 06/24/2019 JASMINJOSEFER LITA S Ot K11.6 MUCOCELE OF SALIVARY GLAND 06/24/2019 JASMINIRINA JOHNSON LITA S Ot R22.1 LOCALIZED SWELLING, MASS AND LUMP, NECK 06/24/2019 JASMINJOSEFBEV LITA S Ot M79.671 PAIN IN RIGHT FOOT 06/24/2019 JOYCE KAYE MEDICAL OFFICE MANAGER Ot R91.1 SOLITARY PULMONARY NODULE 06/24/2019 JARAD COPPOLA MEDICAL OFFICE MANAGER Ot R06.02 SHORTNESS OF BREATH 06/24/2019 JARAD COPPOLA MEDICAL OFFICE MANAGER Ot R07.9 CHEST PAIN, UNSPECIFIED 06/24/2019 JARAD COPPOLA MEDICAL OFFICE MANAGER Ot R53.83 OTHER FATIGUE 06/24/2019 RANDI SHAFFER FACC, TARI FACP CCDS Ot I25.10 ATHSCL HEART DISEASE OF [place] CORONARY 06/24/2019 RANDI SHAFFER FACC, TARI FACP CCDS Ot R06.02 SHORTNESS OF BREATH 06/24/2019 ILA JOHNSON RAKEL Ashley Ot J43. 8 OTHER EMPHYSEMA 06/24/2019 ILA JOHNSON RAKEL Ashley Ot R06. 00 DYSPNEA, UNSPECIFIED 06/24/2019 ILA JOHNSON RAKEL M Ot R91. 1 SOLITARY PULMONARY NODULE 06/24/2019 ILA JOHNSON RAKEL Ashley Ot Z87.891 PERSONAL HISTORY OF NICOTINE DEPENDENCE 06/24/2019 JERMAIN BARAKAT DOLINE S Ot D64.9 ANEMIA, UNSPECIFIED 06/24/2019 CASSIA THOMPSON Ot S49.92XA UNSP INJURY OF LEFT SHOULDER AND UPPER A 06/24/2019 CASSIA THOMPSON Ot W19.XXXA UNSPECIFIED FALL, INITIAL ENCOUNTER 06/24/2019 CASSIA THOMPSON Ot Y99.8 OTHER EXTERNAL CAUSE STATUS 06/24/2019 JERMAIN BARAKAT DOLINE S Ot J84.9 INTERSTITIAL PULMONARY DISEASE, UNSPECIF 06/24/2019 JERMAIN BARAKAT DOLINE S Ot J44.9 CHRONIC OBSTRUCTIVE PULMONARY DISEASE, U 06/24/2019 HARRIS ARGUETA APRN Ot M25.561 PAIN IN RIGHT KNEE 06/24/2019 JERMAIN BARAKAT DOLINE S Ot R05 COUGH 06/24/2019 JERMAIN BARAKAT DOLINE S Ot R06.00 DYSPNEA, UNSPECIFIED 06/24/2019 JAY SHAFFER, SAMUEL Contreras Ot S42.025D NONDISP FX OF SHAFT OF L CLAVICLE, SUBS 06/24/2019 HARRIS ARGUETA MEDICAL OFFICE MANAGER Ot R06.00 DYSPNEA, UNSPECIFIED 06/24/2019 HARRIS ARGUETA MEDICAL OFFICE MANAGER Ot R42 DIZZINESS AND GIDDINESS 06/30/2019 ALIZE BARAKAT DOQUELINE S Ot D50.9 IRON DEFICIENCY ANEMIA, UNSPECIFIED 06/30/2019 ALIZE BARAKAT DOQUELINE S Ot D50.9 IRON DEFICIENCY ANEMIA, UNSPECIFIED 06/30/2019 ALIZE BARAKAT DOQUELINE S Ot D50.9 IRON DEFICIENCY ANEMIA, UNSPECIFIED 07/02/2019 ALIZE BARAKAT DOQUELINE S Ot K57.90 DVRTCLOS OF INTEST, PART UNSP, W/O PERF 07/02/2019 JERMAIN BARAKAT DOLINE S Ot K82.8 OTHER SPECIFIED DISEASES OF GALLBLADDER 07/02/2019 JERMAIN BARAKAT DOLINE S Ot N28.9 DISORDER OF KIDNEY AND URETER, UNSPECIFI 07/02/2019 JERMAIN BARAKAT DOLINE S Ot R16.0 HEPATOMEGALY, NOT ELSEWHERE CLASSIFIED 07/04/2019 JERMAIN BARAKAT DOLINE S Ot K57.90 DVRTCLOS OF INTEST, PART UNSP, W/O PERF 07/04/2019 JERMAIN BARAKAT DOLINE S Ot K82.8 OTHER SPECIFIED DISEASES OF GALLBLADDER 07/04/2019 JERMAIN BARAKAT DOLINE S Ot N28.9 DISORDER OF KIDNEY AND URETER, UNSPECIFI 07/04/2019 JERMAIN BARAKAT DOLINE S Ot R16.0 HEPATOMEGALY, NOT ELSEWHERE CLASSIFIED 07/04/2019 GASPER JOHNSON LITA S Ot 786.09 RESPIRATORY ABNORM NEC 07/04/2019 GASPER JOHNSON LITA S Ot 786.50 CHEST PAIN NOS 07/04/2019 GASPER JOHNSON LITA S Ot V17.3 FAM HX-ISCHEM HEART DIS 07/04/2019 GASPER JOHNSON LITA S Ot 496 CHR AIRWAY OBSTRUCT NEC 07/04/2019 RAKEL THORPE DO Ot 278. 00 OBESITY, NOS 07/04/2019 RAKEL THORPE DO Ot 496 CHR AIRWAY OBSTRUCT NEC 07/04/2019 RAKEL THORPE DO Ot 786. 09 RESPIRATORY ABNORM NEC 07/04/2019 GASPER JOHNSON LITA S Ot 496 07/04/2019 JASMINIRINA JOHNSON LITA S Ot V57.89 07/04/2019 GASPER JOHNSON LITA S Ot K11.6 MUCOCELE OF SALIVARY GLAND 07/04/2019 GASPER JOHNSON LITA S Ot R22.1 LOCALIZED SWELLING, MASS AND LUMP, NECK 07/04/2019 JASMINIRINA JOHNSON LITA S Ot M79.671 PAIN IN RIGHT FOOT 07/04/2019 JOYCE KAYE APRN Ot R91.1 SOLITARY PULMONARY NODULE 07/04/2019 JARAD COPPOLA MEDICAL OFFICE MANAGER Ot R06.02 SHORTNESS OF BREATH 07/04/2019 JARAD COPPOLA MEDICAL OFFICE MANAGER Ot R07.9 CHEST PAIN, UNSPECIFIED 07/04/2019 JARAD COPPOLA MEDICAL OFFICE MANAGER Ot R53.83 OTHER FATIGUE 07/04/2019 RANDI SHAFFER [facility], [place] CCDS Ot I25.10 ATHSCL HEART DISEASE OF [place] CORONARY 07/04/2019 RANDI SHAFFER [facility], [place] [facility] CCDS Ot R06.02 SHORTNESS OF BREATH 07/04/2019 RAKEL THORPE DO Ot J43. 8 OTHER EMPHYSEMA 07/04/2019 RAKEL THORPE DO Ot R06. 00 DYSPNEA, UNSPECIFIED 07/04/2019 RAKEL THORPE DO Ot R91. 1 SOLITARY PULMONARY NODULE 07/04/2019 RAKEL THORPE DO Ot Z87.891 PERSONAL HISTORY OF NICOTINE DEPENDENCE 07/04/2019 LITA BARAKAT DO Ot D64.9 ANEMIA, UNSPECIFIED 07/04/2019 CASSIA THOMPSON Ot S49.92XA UNSP INJURY OF LEFT SHOULDER AND UPPER A 07/04/2019 CASSIA THOMPSON Ot W19.XXXA UNSPECIFIED FALL, INITIAL ENCOUNTER 07/04/2019 CASSIA THOMPSON Ot Y99.8 OTHER EXTERNAL CAUSE STATUS 07/04/2019 LITA BARAKAT DO Ot J84.9 INTERSTITIAL PULMONARY DISEASE, UNSPECIF 07/04/2019 LITA BARAKAT DO Ot J44.9 CHRONIC OBSTRUCTIVE PULMONARY DISEASE, U 07/04/2019 HARRIS ARGUETA MEDICAL OFFICE MANAGER Ot M25.561 PAIN IN RIGHT KNEE 07/04/2019 LITA BARAKAT DO Ot R05 COUGH 07/04/2019 LITA BARAKAT DO S Ot R06.00 DYSPNEA, UNSPECIFIED 07/04/2019 JAY SHAFFER, SAMUEL Contreras Ot S42.025D NONDISP FX OF SHAFT OF L CLAVICLE, SUBS 07/04/2019 HARRIS ARGUETA APRN Ot R06.00 DYSPNEA, UNSPECIFIED 07/04/2019 HARRIS ARGUETA APRN Ot R42 DIZZINESS AND GIDDINESS 07/04/2019 LITA BARAKAT DO S Ot K57.90 DVRTCLOS OF INTEST, PART UNSP, W/O PERF 07/04/2019 ORENDER DO, LITA S Ot K82.8 OTHER SPECIFIED DISEASES OF GALLBLADDER 07/04/2019 ORENDER DO, LITA S Ot N28.9 DISORDER OF KIDNEY AND URETER, UNSPECIFI 07/04/2019 ORENDER DO, LITA S Ot R16.0 HEPATOMEGALY, NOT ELSEWHERE CLASSIFIED 07/09/2019 ORENDER DO, LITA S Ot K57.90 DVRTCLOS [...] G47. 30 SLEEP APNEA, UNSPECIFIED 07/17/2019 JOSE KTAZ MD Ot I10 ESSENTIAL (PRIMARY) HYPERTENSION 07/17/2019 JOSE KATZ MD Ot I25. 10 ATHSCL HEART DISEASE OF [place] CORONARY 07/17/2019 JOSE KATZ MD Ot I25. [...] 07/17/2019 JOSE KATZ MD Ot Z79. 4 TESTER EQUIPMENT (CURRENT) USE OF INSULIN 07/17/2019 JOSE KATZ MD Ot Z79. 52 SENIOR CARE (CURRENT) USE OF SYSTEMIC STER 07/17/2019 JOSE KATZ MD Ot Z79. 82 TESTER EQUIPMENT (CURRENT) USE OF ASPIRIN 07/17/2019 JOSE KATZ MD Ot Z80. 0 FAMILY HISTORY OF MALIGNANT NEOPLASM OF 07/17/2019 JOSE KATZ MD Ot Z82. 49 FAMILY HX OF ISCHEM HEART DIS AND OTH DI 07/17/2019 JOSE KATZ MD Ot Z85.828 PERSONAL HISTORY OF OTHER MALIGNANT NEOP 07/17/2019 JOSE KATZ MD, Ot Z87.891 PERSONAL HISTORY OF NICOTINE DEPENDENCE 07/17/2019 JOSE KATZ MD, Ot Z88. 5 ALLERGY STATUS TO NARCOTIC AGENT STATUS 07/17/2019 JOSE KATZ MD Ot Z95. 5 PRESENCE OF CORONARY ANGIOPLASTY IMPLANT 07/17/2019 JOSE KATZ MD Ot Z99. 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 07/17/2019 JOSE KATZ MD Ot Z99. 89 DEPENDENCE ON OTHER ENABLING MACHINES AN 07/22/2019 LITA BARAKAT DO Ot I12.9 HYPERTENSIVE CHRONIC KIDNEY DISEASE W ST 07/22/2019 LITA BARAKAT DO Ot N18.9 CHRONIC KIDNEY DISEASE, UNSPECIFIED 07/22/2019 LITA BARAKAT DO Ot N28.1 CYST OF KIDNEY, ACQUIRED 07/23/2019 [...] Ot I25. 10 ATHSCL HEART DISEASE OF [place] CORONARY 07/25/2019 JOSE KATZ MD Ot I25. 2 OLD MYOCARDIAL INFARCTION 07/25/2019 JOSE KATZ MD, Ot J44. 1 CHRONIC OBSTRUCTIVE PULMONARY DISEASE W 07/25/2019 JOSE KATZ MD, Ot K21. 9 GASTRO-ESOPHAGEAL REFLUX DISEASE WITHOUT 07/25/2019 JOSE KATZ MD Ot R06. 02 SHORTNESS OF BREATH 07/25/2019 JOSE KATZ MD Ot Z77. 22 CNTCT W AND EXPSR TO ENVIRON TOBACCO SMO 07/25/2019 JOSE KATZ MD, Ot Z79. 4 TESTER EQUIPMENT (CURRENT) USE OF INSULIN 07/25/2019 JOSE KATZ MD, Ot Z79. 52 SENIOR CARE (CURRENT) USE OF SYSTEMIC STER 07/25/2019 JOSE KATZ MD, Ot Z79. 82 TESTER EQUIPMENT (CURRENT) USE OF ASPIRIN 07/25/2019 JOSE KATZ [...] TO NARCOTIC AGENT STATUS 07/25/2019 JOSE KATZ MD Ot Z95. 5 PRESENCE OF CORONARY ANGIOPLASTY IMPLANT 07/25/2019 JOSE KATZ MD Ot Z99. 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 07/25/2019 JOSE KATZ MD Ot Z99. 89 DEPENDENCE ON OTHER ENABLING MACHINES AN 07/25/2019 LITA BARAKAT DO S Ot 496 07/25/2019 LITA BARAKAT DO S Ot V57.89 07/25/2019 STEVAN PATTON DO Ot [...] DO Ot I25.119 ATHSCL HEART DISEASE OF [place] COR ART W 07/29/2019 STEVAN PATTON DO Ot I50. 9 HEART [...] 07/29/2019 STEVAN PATTON DO Ot Z79. 02 SENIOR CARE (CURRENT) USE OF ANTITHROMBOTI 07/29/2019 STEVAN PATTON DO Ot Z79. 4 TESTER EQUIPMENT (CURRENT) USE OF INSULIN 07/29/2019 STEVAN PATTON DO Ot Z79. 82 TESTER EQUIPMENT (CURRENT) USE OF ASPIRIN 07/29/2019 STEVAN PATTON DO Ot Z79. 84 TESTER EQUIPMENT (CURRENT) USE OF ORAL HYPOGLYC 07/29/2019 STEVAN [...] DO Ot I25.119 ATHSCL HEART DISEASE OF [place] COR ART W 08/05/2019 STEVAN PATTON DO [...] 08/05/2019 STEVAN PATTON DO Ot Z79. 02 TESTER EQUIPMENT (CURRENT) USE OF ANTITHROMBOTI 08/05/2019 STEVAN PATTON DO Ot Z79. 4 SENIOR CARE (CURRENT) USE OF INSULIN 08/05/2019 STEVAN PATTON DO Ot Z79. 82 TESTER EQUIPMENT (CURRENT) USE OF ASPIRIN 08/05/2019 STEVAN PATTON DO Ot Z79. 84 SENIOR CARE (CURRENT) USE OF ORAL HYPOGLYC 08/05/2019 STEVAN [...] DO Ot I25.119 ATHSCL HEART DISEASE OF [place] COR ART W 08/05/2019 STEVAN PATTON DO [...] 08/05/2019 STEVAN PATTON DO Ot Z79. 02 TESTER EQUIPMENT (CURRENT) USE OF ANTITHROMBOTI 08/05/2019 STEVAN PATTON DO Ot Z79. 4 SENIOR CARE (CURRENT) USE OF INSULIN 08/05/2019 STEVAN PATTON DO Ot Z79. 82 TESTER EQUIPMENT (CURRENT) USE OF ASPIRIN 08/05/2019 STEVAN PATTON DO Ot Z79. 84 SENIOR CARE (CURRENT) USE OF ORAL HYPOGLYC 08/05/2019 STEVAN [...] Ot I25. 10 ATHSCL HEART DISEASE OF [place] CORONARY 08/07/2019 STEVAN PATTON DO Ot I50. 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 9 EMPHYSEMA, UNSPECIFIED 08/07/2019 STEVAN PATTON DO, Ot K57. 30 DVRTCLOS OF LG INT W/O PERFORATION OR AB 08/07/2019 STEVAN PATTON DO Ot Z79. 02 TESTER EQUIPMENT (CURRENT) USE OF ANTITHROMBOTI 08/07/2019 STEVAN PATTON DO Ot Z79. 4 SENIOR CARE (CURRENT) USE OF INSULIN 08/07/2019 STEVAN PATTON DO Ot Z79. 82 SENIOR CARE (CURRENT) USE OF ASPIRIN 08/07/2019 STEVAN PATTON DO, Ot Z79.899 OTHER TESTER EQUIPMENT (CURRENT) DRUG THERAPY 08/07/2019 STEVAN PATTON DO [...] DO Ot I25.119 ATHSCL HEART DISEASE OF [place] COR ART W 08/07/2019 STEVAN PATTON DO Ot I50. 9 HEART FAILURE, UNSPECIFIED 08/07/2019 STEVAN PATTON DO, Ot J43. 9 EMPHYSEMA, UNSPECIFIED 08/07/2019 STEVAN PATTON DO Ot K21. 9 GASTRO-ESOPHAGEAL REFLUX DISEASE WITHOUT 08/07/2019 STEVAN PATTON DO Ot K29. 70 GASTRITIS, UNSPECIFIED, WITHOUT BLEEDING 08/07/2019 STEVAN PATTON DO Ot K29. 80 DUODENITIS WITHOUT BLEEDING 08/07/2019 STEVAN PATTON DO Ot K31. 89 OTHER DISEASES OF STOMACH AND DUODENUM 08/07/2019 STEVAN PATTON DO Ot R63. 4 ABNORMAL WEIGHT LOSS 08/07/2019 STEVAN PATTON DO Ot Z79. 02 SENIOR CARE (CURRENT) USE OF ANTITHROMBOTI 08/07/2019 STEVAN PATTON DO Ot Z79. 4 TESTER EQUIPMENT (CURRENT) USE OF INSULIN 08/07/2019 STEVAN PATTON DO Ot Z79. 82 TESTER EQUIPMENT (CURRENT) USE OF ASPIRIN 08/07/2019 STEVAN PATTON DO Ot Z79. 84 TESTER EQUIPMENT (CURRENT) USE OF ORAL HYPOGLYC 08/07/2019 STEVAN PATTON DO Ot Z82. 49 FAMILY HX OF ISCHEM HEART DIS AND OTH DI 08/07/2019 STEVAN PATTON DO Ot Z83. 3 FAMILY HISTORY OF DIABETES MELLITUS 08/07/2019 STEVAN PATTON DO Ot Z87.891 PERSONAL HISTORY OF NICOTINE DEPENDENCE 08/14/2019 GARCIA DO, RLUA L Ot E11.9 TYPE 2 DIABETES MELLITUS WITHOUT COMPLIC 08/14/2019 GARCIA DO, RULA L Ot E78.0 0 PURE HYPERCHOLESTEROLEMIA, UNSPECIFIED 08/14/2019 GARCIA DO, RULA L Ot F41.9 ANXIETY DISORDER, UNSPECIFIED 08/14/2019 GARCIA DO, RULA L Ot G47.3 0 SLEEP APNEA, UNSPECIFIED 08/14/2019 GARCIA DO, RULA L Ot I10 ESSENTIAL (PRIMARY) HYPERTENSION 08/14/2019 GARCIA DO, RULA L Ot I25.1 0 ATHSCL HEART DISEASE OF [place] CORONARY 08/14/2019 GARCIA DO, RULA L Ot I25.2 OLD MYOCARDIAL INFARCTION 08/14/2019 GARCIA DO, RULA L Ot J44.9 CHRONIC OBSTRUCTIVE PULMONARY DISEASE, U 08/14/2019 GARCIA DO, RULA L Ot K21.9 GASTRO-ESOPHAGEAL REFLUX DISEASE WITHOUT 08/14/2019 GARCIA DO, RULA L Ot R06.0 2 SHORTNESS OF BREATH 08/14/2019 GARCIA DO, RULA L Ot Z79.4 SENIOR CARE (CURRENT) USE OF INSULIN 08/14/2019 GARCIA DO, RULA L Ot Z79.5 2 SENIOR CARE (CURRENT) USE OF SYSTEMIC STER 08/14/2019 GARCIA DO, RULA L Ot Z79.8 2 SENIOR CARE (CURRENT) USE OF ASPIRIN 08/14/2019 GARCIA DO, [...] Ot I25.1 0 ATHSCL HEART DISEASE OF [place] CORONARY 08/18/2019 GARCIA DO, RULA L Ot I25.2 OLD MYOCARDIAL INFARCTION 08/18/2019 GARCIA DO, RULA L Ot J44.9 CHRONIC OBSTRUCTIVE PULMONARY DISEASE, U 08/18/2019 GARCIA DO, RULA L Ot K21.9 GASTRO-ESOPHAGEAL REFLUX DISEASE WITHOUT 08/18/2019 GARCIA DO, RULA L Ot R06.0 2 SHORTNESS OF BREATH 08/18/2019 GARCIA DO, RULA L Ot Z79.4 SENIOR CARE (CURRENT) USE OF INSULIN 08/18/2019 GARCIA DO, RULA L Ot Z79.5 2 TESTER EQUIPMENT (CURRENT) USE OF SYSTEMIC STER 08/18/2019 GARCIA DO, RULA L Ot Z79.8 2 SENIOR CARE (CURRENT) USE OF ASPIRIN 08/18/2019 KELVIN GARCIA DOR Brooke Ot Z80.0 FAMILY HISTORY OF MALIGNANT NEOPLASM OF 08/18/2019 GARCIA DO RULA L Ot Z82.4 9 FAMILY HX OF ISCHEM HEART DIS AND OTH DI 08/18/2019 KELVIN GARCIA DOR L Ot Z85.8 28 PERSONAL HISTORY OF OTHER MALIGNANT NEOP 08/18/2019 KELVIN GARCIA DOR L Ot Z87.8 91 PERSONAL HISTORY OF NICOTINE DEPENDENCE 08/18/2019 GARCIA KELVINR L Ot Z88.5 ALLERGY STATUS TO NARCOTIC AGENT STATUS 08/18/2019 KELVIN GARCIA DOR L Ot 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 ANGIOPLASTY IMPLANT 08/18/2019 RULA GARCIA DO Ot Z99.8 1 DEPENDENCE ON SUPPLEMENTAL OXYGEN [...] HYPERTENSIVE HEART DISEASE WITH HEART FA 08/22/2019 STEVNA PATTON DO Ot I25. 10 ATHSCL HEART DISEASE OF [place] CORONARY 08/22/2019 STEVAN PATTON DO Ot I50. 9 HEART FAILURE, UNSPECIFIED 08/22/2019 STEVAN PATTON DO Ot I65. 23 OCCLUSION AND STENOSIS OF BILATERAL BAZZI 08/22/2019 STEVAN PATTON DO Ot J43. 9 EMPHYSEMA, UNSPECIFIED 08/22/2019 STEVAN PATTON DO Ot K57. 30 DVRTCLOS OF LG INT W/O PERFORATION OR AB 08/22/2019 STEVAN PATTON DO Ot Z79. 02 TESTER EQUIPMENT (CURRENT) USE OF ANTITHROMBOTI 08/22/2019 STEVAN PATTON DO Ot Z79. 4 SENIOR CARE (CURRENT) USE OF INSULIN 08/22/2019 STEVAN PATTON DO Ot Z79. 82 SENIOR CARE (CURRENT) USE OF ASPIRIN 08/22/2019 STEVAN PATTON DO Ot Z79.899 OTHER SENIOR CARE (CURRENT) DRUG THERAPY 08/22/2019 STEVAN PATTON DO [...] Ot I25. 10 ATHSCL HEART DISEASE OF [place] CORONARY 08/27/2019 STEVAN PATTON DO Ot I50. 9 HEART FAILURE, UNSPECIFIED 08/27/2019 STEVAN PATTON DO Ot I65. 23 OCCLUSION AND STENOSIS OF BILATERAL BAZZI 08/27/2019 STEVAN PATTON DO Ot J43. 9 EMPHYSEMA, UNSPECIFIED 08/27/2019 STEVAN PATTON DO Ot K57. 30 DVRTCLOS OF LG INT W/O PERFORATION OR AB 08/27/2019 STEVAN PATTON DO Ot Z79. 02 TESTER EQUIPMENT (CURRENT) USE OF ANTITHROMBOTI 08/27/2019 STEVAN PATTON DO Ot Z79. 4 TESTER EQUIPMENT (CURRENT) USE OF INSULIN 08/27/2019 STEVAN PATTON DO Ot Z79. 82 TESTER EQUIPMENT (CURRENT) USE OF ASPIRIN 08/27/2019 STEVAN PATTON DO Ot Z79.899 OTHER TESTER EQUIPMENT (CURRENT) DRUG THERAPY 08/27/2019 STEVAN PATTON DO Ot Z82. 49 FAMILY HX OF ISCHEM HEART DIS AND OTH DI 08/27/2019 STEVAN PATTON DO Tone Ot Z83. 3 FAMILY HISTORY OF DIABETES MELLITUS 08/27/2019 ABDI JOHNSON STEVAN Tone Ot Z87.891 PERSONAL HISTORY OF NICOTINE DEPENDENCE 08/27/2019 STEVAN PATTON DO Tone Ot Z88. 6 ALLERGY STATUS TO ANALGESIC AGENT STATUS 08/27/2019 ABDI JOHNSON STEVAN Tone Ot Z99. 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 [...] Ot V17.3 FAM HX-ISCHEM HEART DIS 09/18/2019 LITA BARAKAT DO S Ot 496 CHR AIRWAY OBSTRUCT NEC 09/18/2019 RAKEL THORPE DO Ot 278. 00 OBESITY, NOS 09/18/2019 RAKEL THORPE DO Ot 496 CHR AIRWAY OBSTRUCT NEC 09/18/2019 RAKEL THORPE DO Ot 786. 09 RESPIRATORY ABNORM NEC 09/18/2019 LITA BARAKAT DO S Ot 496 09/18/2019 LITA BARAKAT DO S Ot V57.89 09/18/2019 LITA BARAKAT DO Ot K11.6 MUCOCELE OF SALIVARY GLAND 09/18/2019 LITA BARAKAT DO S Ot R22.1 LOCALIZED SWELLING, MASS AND LUMP, NECK 09/18/2019 LITA BARAKAT DO S Ot M79.671 PAIN IN RIGHT FOOT 09/18/2019 JOYCE KAYE MEDICAL OFFICE MANAGER Ot R91.1 SOLITARY PULMONARY NODULE 09/18/2019 JARAD COPPOLA MEDICAL OFFICE MANAGER Ot R06.02 SHORTNESS OF BREATH 09/18/2019 JARAD COPPOLA MEDICAL OFFICE MANAGER Ot R07.9 CHEST PAIN, UNSPECIFIED 09/18/2019 JARAD COPPOLA MEDICAL OFFICE MANAGER Ot R53.83 OTHER FATIGUE 09/18/2019 RANDI SHAFFER FAC, ALI FACP CCDS Ot I25.10 ATHSCL HEART DISEASE OF [place] CORONARY 09/18/2019 RANDI SHAFFER FAC, ALI FACP CCDS Ot R06.02 SHORTNESS OF BREATH 09/18/2019 RAKEL THORPE DO Ot J43. 8 OTHER EMPHYSEMA 09/18/2019 RAKEL THORPE DO Ot R06. 00 DYSPNEA, UNSPECIFIED 09/18/2019 RAKEL THORPE DO Ot R91. 1 SOLITARY PULMONARY NODULE 09/18/2019 RAKEL THORPE DO Ot Z87.891 PERSONAL HISTORY OF NICOTINE DEPENDENCE 09/18/2019 GASPER JOHNSON LITA S Ot D64.9 ANEMIA, UNSPECIFIED 09/18/2019 CASSIA THOMPSON Ot S49.92XA UNSP INJURY OF LEFT SHOULDER AND UPPER A 09/18/2019 CASSIA THOMPSON Ot W19.XXXA UNSPECIFIED FALL, INITIAL ENCOUNTER 09/18/2019 CASSIA THOMPSON Ot Y99.8 OTHER EXTERNAL CAUSE STATUS 09/18/2019 JERMAIN BARAKAT DOLINE S Ot J84.9 INTERSTITIAL PULMONARY DISEASE, UNSPECIF 09/18/2019 GASPER JOHNSON LITA S Ot J44.9 CHRONIC OBSTRUCTIVE PULMONARY DISEASE, U 09/18/2019 HARRIS ARGUETA MEDICAL OFFICE MANAGER Ot M25.561 PAIN IN RIGHT KNEE 09/18/2019 GASPER JOHNSON LITA S Ot R05 COUGH 09/18/2019 GASPER JOHNSON LITA S Ot R06.00 DYSPNEA, UNSPECIFIED 09/18/2019 JAY SHAFFER, SAMUEL Contreras Ot S42.025D NONDISP FX OF SHAFT OF L CLAVICLE, SUBS 09/18/2019 KENDALLHARRIS R MEDICAL OFFICE MANAGER Ot R06.00 DYSPNEA, UNSPECIFIED 09/18/2019 HARRIS ARGUETA R MEDICAL OFFICE MANAGER Ot R42 DIZZINESS AND GIDDINESS 09/18/2019 GASPER JOHNSON LITA S Ot K57.90 DVRTCLOS OF INTEST, PART UNSP, W/O PERF 09/18/2019 GASPER JOHNSON LITA S Ot K82.8 OTHER SPECIFIED DISEASES OF GALLBLADDER 09/18/2019 GASPER LITA S Ot N28.9 DISORDER OF KIDNEY AND URETER, UNSPECIFI 09/18/2019 GASPER LITA S Ot R16.0 HEPATOMEGALY, NOT ELSEWHERE CLASSIFIED 09/18/2019 JASMINIRINA JOHNSONALIZELITA S Ot I12.9 HYPERTENSIVE CHRONIC KIDNEY DISEASE W ST 09/18/2019 JASMINIRINA JOHNSONLITA S Ot N18.9 CHRONIC KIDNEY DISEASE, UNSPECIFIED 09/18/2019 JASMINIRINA JOHNSON LITA S Ot N28.1 CYST OF KIDNEY, [...] Ot I25. 10 ATHSCL HEART DISEASE OF [place] CORONARY 09/18/2019 STEVNA PATTON DO Ot I50. 9 HEART FAILURE, UNSPECIFIED 09/18/2019 STEVAN PATTON DO Ot I65. 23 OCCLUSION AND STENOSIS OF BILATERAL BAZZI 09/18/2019 STEVAN PATTON DO Ot J43. 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 02 TESTER EQUIPMENT (CURRENT) USE OF ANTITHROMBOTI 09/18/2019 STEVAN PATTON DO Ot Z79. 4 SENIOR CARE (CURRENT) USE OF INSULIN 09/18/2019 STEVAN PATTON DO Ot Z79. 82 SENIOR CARE (CURRENT) USE OF ASPIRIN 09/18/2019 STEVAN PATTON DO Ot Z79.899 OTHER TESTER EQUIPMENT (CURRENT) DRUG THERAPY 09/18/2019 STEVAN PATTON DO [...] E04. 1 NONTOXIC SINGLE THYROID NODULE 09/18/2019 ILA JOHNSON RAKEL Ramirez Ot J43. 9 EMPHYSEMA, UNSPECIFIED 09/18/2019 ILA JOHNSON RAKEL Ramirez Ot Z87.891 PERSONAL HISTORY OF NICOTINE DEPENDENCE 09/18/2019 ILA JOHNSON RAKEL Ramirez Ot E04. 1 NONTOXIC SINGLE THYROID NODULE 09/18/2019 ILA JOHNSON RAKEL Ashley Ot J43. 9 EMPHYSEMA, UNSPECIFIED 09/18/2019 ILA JOHNSON RAKEL Ramirez Ot Z87.891 PERSONAL HISTORY OF NICOTINE DEPENDENCE 09/18/2019 ILA JOHNSON RAKEL Ramirez Ot E04. 1 NONTOXIC SINGLE THYROID NODULE 09/18/2019 ILA JOHNSON RAKEL Ramirez Ot J43. 9 EMPHYSEMA, UNSPECIFIED 09/18/2019 ILA JOHNSON RAKEL Ramirez Ot Z87.891 PERSONAL HISTORY OF NICOTINE DEPENDENCE 09/18/2019 GASPER JOHNSON LITA S Ot 786.09 RESPIRATORY ABNORM NEC 09/18/2019 JERMAIN BARAKAT DOLINE S Ot 786.50 CHEST PAIN NOS 09/18/2019 JERMAIN BARAKAT DOLINE S Ot V17.3 FAM HX-ISCHEM HEART DIS 09/18/2019 JERMAIN BARAKAT DOLINE S Ot 496 CHR AIRWAY OBSTRUCT NEC 09/18/2019 RAKEL THORPE DO Ot 278. 00 OBESITY, NOS 09/18/2019 ILA DO RAKEL Ashley Ot 496 CHR AIRWAY OBSTRUCT NEC 09/18/2019 ILA JOHNSON RAKEL M Ot 786. 09 RESPIRATORY ABNORM NEC 09/18/2019 JERMAIN BARAKAT DOLINE S Ot 496 09/18/2019 JERMAIN BARAKAT DOLINE S Ot V57.89 09/18/2019 JERMAIN BARAKAT DOLINE S Ot K11.6 MUCOCELE OF SALIVARY GLAND 09/18/2019 JERMAIN BARAKAT DOLINE S Ot R22.1 LOCALIZED SWELLING, MASS AND LUMP, NECK 09/18/2019 JERMAIN BARAKAT DOLINE S Ot M79.671 PAIN IN RIGHT FOOT 09/18/2019 JOYCE KAYE APRN Ot R91.1 SOLITARY PULMONARY NODULE 09/18/2019 JARAD COPPOLA APRN Ot R06.02 SHORTNESS OF BREATH 09/18/2019 JARAD COPPOLA MEDICAL OFFICE MANAGER Ot R07.9 CHEST PAIN, UNSPECIFIED 09/18/2019 ANATJARAD Marine MEDICAL OFFICE MANAGER Ot R53.83 OTHER FATIGUE 09/18/2019 RANDI SHAFFER [facility], [facility] CCDS Ot I25.10 ATHSCL HEART DISEASE OF [place] CORONARY 09/18/2019 RANDI SHAFFER FAC, [facility] CCDS Ot R06.02 SHORTNESS OF BREATH 09/18/2019 RAKEL THORPE DO Ot J43. 8 OTHER EMPHYSEMA 09/18/2019 RAKEL THORPE DO Ot R06. 00 DYSPNEA, UNSPECIFIED 09/18/2019 RAKEL THORPE DO Ot R91. 1 SOLITARY PULMONARY NODULE 09/18/2019 RAKEL THORPE DO Ot Z87.891 PERSONAL HISTORY OF NICOTINE DEPENDENCE 09/18/2019 LITA BARAKAT DO Ot D64.9 ANEMIA, UNSPECIFIED 09/18/2019 CASSIA THOMPSON Ot S49.92XA UNSP INJURY OF LEFT SHOULDER AND UPPER A 09/18/2019 CASSIA THOMPSON Ot W19.XXXA UNSPECIFIED FALL, INITIAL ENCOUNTER 09/18/2019 CASSIA THOMPSON Ot Y99.8 OTHER EXTERNAL CAUSE STATUS 09/18/2019 LITA BARAKAT DO Ot J84.9 INTERSTITIAL PULMONARY DISEASE, UNSPECIF 09/18/2019 LITA BARAKAT DO S Ot J44.9 CHRONIC OBSTRUCTIVE PULMONARY DISEASE, U 09/18/2019 HARRIS ARGUETA APRN Ot M25.561 PAIN IN RIGHT KNEE 09/18/2019 LITA BARAKAT DO S Ot R05 COUGH 09/18/2019 LITA BARAKAT DO S Ot R06.00 DYSPNEA, UNSPECIFIED 09/18/2019 JAY SHAFFER, SAMUEL Contreras Ot S42.025D NONDISP FX OF SHAFT OF L CLAVICLE, SUBS 09/18/2019 HARRIS ARGUETA APRN Ot R06.00 DYSPNEA, UNSPECIFIED 09/18/2019 HARRIS ARGUETA APRN Ot R42 DIZZINESS AND GIDDINESS 09/18/2019 LITA BARAKAT DO S Ot K57.90 DVRTCLOS OF INTEST, PART UNSP, W/O PERF 09/18/2019 JERMAIN BARAKAT DOLINE Donovan Ot K82.8 OTHER SPECIFIED DISEASES OF GALLBLADDER 09/18/2019 JASMINJOSEFALIZE PABLO DOQUELINE S Ot N28.9 DISORDER OF KIDNEY AND URETER, UNSPECIFI 09/18/2019 JASMINIRINA JOHNSON LITA S Ot R16.0 HEPATOMEGALY, NOT ELSEWHERE CLASSIFIED 09/18/2019 JASMINJOSEFLITA PABLO DO S Ot I12.9 HYPERTENSIVE CHRONIC KIDNEY DISEASE W ST 09/18/2019 JASMINNDBEV LITA JOHNSON S Ot N18.9 CHRONIC KIDNEY DISEASE, UNSPECIFIED 09/18/2019 JASMINNDER LITA S Ot N28.1 CYST OF KIDNEY, [...] Ot I25. 10 ATHSCL HEART DISEASE OF [place] CORONARY 09/18/2019 STEVAN PATTON DO Ot I50. 9 HEART FAILURE, UNSPECIFIED 09/18/2019 STEVAN PATTON DO Ot I65. 23 OCCLUSION AND STENOSIS OF BILATERAL BAZZI 09/18/2019 STEVAN PATTON DO Ot J43. 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 02 SENIOR CARE (CURRENT) USE OF ANTITHROMBOTI 09/18/2019 STEVAN PATTON DO Ot Z79. 4 TESTER EQUIPMENT (CURRENT) USE OF INSULIN 09/18/2019 STEVAN PATTON DO Ot Z79. 82 TESTER EQUIPMENT (CURRENT) USE OF ASPIRIN 09/18/2019 STEVAN PATTON DO Ot Z79.899 OTHER SENIOR CARE (CURRENT) DRUG THERAPY 09/18/2019 STEVAN PATTON DO [...] MD Ot I25.10 ATHSCL HEART DISEASE OF [place] CORONARY 09/18/2019 LELE DEGROOT MD Ot I25.2 OLD MYOCARDIAL INFARCTION 09/18/2019 LELE DEGROOT MD Ot J44.9 CHRONIC OBSTRUCTIVE PULMONARY DISEASE, U 09/18/2019 LELE DEGROOT MD, Ot K21.9 GASTRO-ESOPHAGEAL REFLUX DISEASE WITHOUT 09/18/2019 LELE DEGROOT MD, Ot R06.02 SHORTNESS OF BREATH 09/18/2019 LELE DEGROOT MD, Ot Z77.22 CNTCT W AND EXPSR TO ENVIRON TOBACCO SMO 09/18/2019 LELE DEGROOT MD, Ot Z79.02 SENIOR CARE (CURRENT) USE OF ANTITHROMBOTI 09/18/2019 LELE DEGROOT MD, Ot Z79.4 TESTER EQUIPMENT (CURRENT) USE OF INSULIN 09/18/2019 LELE DEGROOT MD, Ot Z79.52 TESTER EQUIPMENT (CURRENT) USE OF SYSTEMIC STER 09/18/2019 LELE DEGROOT MD, Ot Z79.82 TESTER EQUIPMENT (CURRENT) USE OF ASPIRIN 09/18/2019 LELE DEGROOT MD, Ot Z80.3 FAMILY HISTORY OF MALIGNANT NEOPLASM OF 09/18/2019 LELE DEGROOT MD, Ot Z82.49 FAMILY HX OF ISCHEM HEART DIS AND OTH DI 09/18/2019 LELE DEGROOT MD, Ot Z85.828 PERSONAL HISTORY OF OTHER MALIGNANT NEOP 09/18/2019 LELE DEGROOT MD, Ot Z87.891 PERSONAL HISTORY OF NICOTINE DEPENDENCE 09/18/2019 LELE DEGROOT MD Ot Z88.5 ALLERGY STATUS TO NARCOTIC AGENT STATUS 09/18/2019 LELE DEGROOT MD Ot 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 ANGIOPLASTY IMPLANT 09/18/2019 LELE DEGROOT MD Ot 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 09/22/2019 LELE DEGROOT MD Ot E11.9 TYPE 2 DIABETES MELLITUS WITHOUT COMPLIC 09/22/2019 LELE DEGROOT MD Ot E78.00 PURE HYPERCHOLESTEROLEMIA, UNSPECIFIED 09/22/2019 LELE DEGROOT MD Ot F41.9 ANXIETY DISORDER, UNSPECIFIED 09/22/2019 LLEE DEGROOT MD Ot I10 ESSENTIAL (PRIMARY) HYPERTENSION 09/22/2019 LELE DEGROOT MD Ot I25.10 ATHSCL HEART DISEASE OF [place] CORONARY 09/22/2019 LELE DEGROOT MD Ot I25.2 OLD MYOCARDIAL INFARCTION 09/22/2019 LELE DEGROOT MD, Ot J44.9 CHRONIC OBSTRUCTIVE PULMONARY DISEASE, U 09/22/2019 LELE DEGROOT MD, Ot K21.9 GASTRO-ESOPHAGEAL REFLUX DISEASE WITHOUT 09/22/2019 LELE DEGROOT MD, Ot R06.02 SHORTNESS OF BREATH 09/22/2019 LELE DEGROOT MD, Ot Z77.22 CNTCT W AND EXPSR TO ENVIRON TOBACCO SMO 09/22/2019 LELE DEGROOT MD, Ot Z79.02 TESTER EQUIPMENT (CURRENT) USE OF ANTITHROMBOTI 09/22/2019 LELE DEGROOT MD, Ot Z79.4 TESTER EQUIPMENT (CURRENT) USE OF INSULIN 09/22/2019 LELE DEGROOT MD, Ot Z79.52 TESTER EQUIPMENT (CURRENT) USE OF SYSTEMIC STER 09/22/2019 LELE DEGROOT MD, Ot Z79.82 TESTER EQUIPMENT (CURRENT) USE OF ASPIRIN 09/22/2019 LELE DEGROOT MD, Ot Z80.3 FAMILY HISTORY OF MALIGNANT NEOPLASM OF 09/22/2019 LELE DEGROOT MD Ot Z82.49 FAMILY HX OF ISCHEM HEART DIS AND OTH DI 09/22/2019 LELE DEGROOT MD, Ot Z85.828 PERSONAL HISTORY OF OTHER MALIGNANT NEOP 09/22/2019 LELE DEGROOT MD, Ot Z87.891 PERSONAL HISTORY OF NICOTINE DEPENDENCE 09/22/2019 LELE DEGROOT MD, Ot Z88.5 ALLERGY STATUS [...] OF NICOTINE DEPENDENCE 09/24/2019 LITA BARAKAT DO Ot 786.09 RESPIRATORY ABNORM NEC 09/24/2019 ORENDER DO, LITA S Ot 786.50 CHEST PAIN NOS 09/24/2019 ORENDER DO, LITA S Ot V17.3 FAM HX-ISCHEM HEART DIS 09/24/2019 JASMINNDER DO, LITA S Ot 496 CHR AIRWAY OBSTRUCT NEC 09/24/2019 ILA JOHNSON, RAKEL Ramirez Ot 278. 00 OBESITY, NOS 09/24/2019 ILA JOHNSON, RAKEL Ramirez Ot 496 CHR AIRWAY OBSTRUCT NEC 09/24/2019 ILA JOHNSON, RAKEL Ramirez Ot 786. 09 RESPIRATORY ABNORM NEC 09/24/2019 ORENDER DO, LITA S Ot 496 09/24/2019 [facility] S Ot V57.89 09/24/2019 ORENDER DO, LITA S Ot K11.6 MUCOCELE OF SALIVARY GLAND 09/24/2019 [facility], LITA S Ot R22.1 LOCALIZED SWELLING, MASS AND LUMP, NECK 09/24/2019 [facility], LITA S Ot M79.671 PAIN IN RIGHT FOOT 09/24/2019 JOYCE KAYE MEDICAL OFFICE MANAGER Ot R91.1 SOLITARY PULMONARY NODULE 09/24/2019 JARAD COPPOLA MEDICAL OFFICE MANAGER Ot R06.02 SHORTNESS OF BREATH 09/24/2019 JARAD COPPOLA MEDICAL OFFICE MANAGER Ot R07.9 CHEST PAIN, UNSPECIFIED 09/24/2019 JARAD COPPOLA MEDICAL OFFICE MANAGER Ot R53.83 OTHER FATIGUE 09/24/2019 RANDI SHAFFER FAC, ALI FACP CCDS Ot I25.10 ATHSCL HEART DISEASE OF [place] CORONARY 09/24/2019 RANDI SHAFFER FAC, ALI FACP CCDS Ot R06.02 SHORTNESS OF BREATH 09/24/2019 RAKEL THORPE DO Ot J43. 8 OTHER EMPHYSEMA 09/24/2019 RAKEL THORPE DO Ot R06. 00 DYSPNEA, UNSPECIFIED 09/24/2019 RAKEL THORPE DO Ot R91. 1 SOLITARY PULMONARY NODULE 09/24/2019 RAKEL THORPE DO Ot Z87.891 PERSONAL HISTORY OF NICOTINE DEPENDENCE 09/24/2019 [facility], LITA S Ot D64.9 ANEMIA, UNSPECIFIED 09/24/2019 CASSIA THOMPSON OIL EXPELLER Ot S49.92XA UNSP INJURY OF LEFT SHOULDER AND UPPER A 09/24/2019 CLAUDETTEJuanSÁNCHEZ CASSIAKYLEE RUSSELL Ot W19.XXXA UNSPECIFIED FALL, INITIAL ENCOUNTER 09/24/2019 CLAUDETTEBRANDIE CASSIAKYLEE RUSSELL Ot Y99.8 OTHER EXTERNAL CAUSE STATUS 09/24/2019 JASMINNDER DO, LITA S Ot J84.9 INTERSTITIAL PULMONARY DISEASE, UNSPECIF 09/24/2019 JASMINNDER DOLITA S Ot J44.9 CHRONIC OBSTRUCTIVE PULMONARY DISEASE, U 09/24/2019 KENDALLHARRIS APRN Ot M25.561 PAIN IN RIGHT KNEE 09/24/2019 ORENDER DO, LITA S Ot R05 COUGH 09/24/2019 ORENDER DO, LITA S Ot R06.00 DYSPNEA, UNSPECIFIED 09/24/2019 JAY SHAFFER, SAMUEL Contreras Ot S42.025D NONDISP FX OF SHAFT OF L CLAVICLE, SUBS 09/24/2019 KENDALLHARRIS SHIN APRN Ot R06.00 DYSPNEA, UNSPECIFIED 09/24/2019 KENDALLHARRIS APRN Ot R42 DIZZINESS AND GIDDINESS 09/24/2019 ORENDER DO, LITA S Ot K57.90 DVRTCLOS OF INTEST, PART UNSP, W/O PERF 09/24/2019 JASMINNDER DO, LITA S Ot K82.8 OTHER SPECIFIED DISEASES OF GALLBLADDER 09/24/2019 ORENDER DO, LITA S Ot N28.9 DISORDER OF KIDNEY AND URETER, UNSPECIFI 09/24/2019 JASMINNDER DOJERMAINLITA S Ot R16.0 HEPATOMEGALY, NOT ELSEWHERE CLASSIFIED 09/24/2019 ORENDER DO, LITA S Ot I12.9 HYPERTENSIVE CHRONIC KIDNEY DISEASE W ST 09/24/2019 ORENDER DO, LITA S Ot N18.9 CHRONIC KIDNEY DISEASE, UNSPECIFIED 09/24/2019 ORENDER DO, LITA S Ot N28.1 CYST OF KIDNEY, ACQUIRED 09/24/2019 STEVAN PATTON DO Ot 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 9 ANEMIA, UNSPECIFIED 09/24/2019 STEVAN PATTON DO Ot E11. 9 TYPE 2 DIABETES MELLITUS WITHOUT COMPLIC 09/24/2019 WINDBER STEVAN JOHNSON Ot G47. 33 OBSTRUCTIVE SLEEP APNEA (ADULT) (PEDIATR 09/24/2019 [facility] Ot I11. 0 HYPERTENSIVE HEART DISEASE WITH HEART FA 09/24/2019 PATTON STEVAN JOHNSON Ot I25. 10 ATHSCL HEART DISEASE OF [place] CORONARY 09/24/2019 PATTON DOSTEVAN Ot I50. 9 HEART FAILURE, UNSPECIFIED 09/24/2019 PATTON STEVAN JOHNSON Ot I65. 23 OCCLUSION AND STENOSIS OF BILATERAL BAZZI 09/24/2019 [facility] Ot J43. 9 EMPHYSEMA, UNSPECIFIED 09/24/2019 [facility] Ot K57. 30 DVRTCLOS OF LG INT W/O PERFORATION OR AB 09/24/2019 PATTON DOSTEVAN Ot Z79. 02 SENIOR CARE (CURRENT) USE OF ANTITHROMBOTI 09/24/2019 PATTON DOSTEVAN Ot Z79. 4 TESTER EQUIPMENT (CURRENT) USE OF INSULIN 09/24/2019 STEVAN PATTON DO Ot Z79. 82 SENIOR CARE (CURRENT) USE OF ASPIRIN 09/24/2019 [facility] Ot Z79.899 OTHER TESTER EQUIPMENT (CURRENT) DRUG THERAPY 09/24/2019 PATTON STEVAN JOHNSON Ot Z82. 49 FAMILY HX OF ISCHEM HEART DIS AND OTH DI 09/24/2019 PATTON STEVAN JOHNSON Ot Z83. 3 FAMILY HISTORY OF DIABETES MELLITUS 09/24/2019 STEVAN PATTON DO Ot Z87.891 PERSONAL HISTORY OF NICOTINE DEPENDENCE 09/24/2019 PATTON STEVAN JOHNSON Ot Z88. 6 ALLERGY STATUS TO ANALGESIC [...] R91.1 SOLITARY PULMONARY NODULE 09/24/2019 JOYCE KAYE MEDICAL OFFICE MANAGER Ot Z87.891 PERSONAL HISTORY OF NICOTINE DEPENDENCE 09/24/2019 RAKEL THORPE DO Ot E04. 1 NONTOXIC SINGLE THYROID NODULE 09/24/2019 RAKEL THORPE DO Ot J43. 9 EMPHYSEMA, UNSPECIFIED 09/24/2019 RAKEL THORPE DO Ot Z87.891 PERSONAL [...] 00 PURE HYPERCHOLESTEROLEMIA, UNSPECIFIED 09/24/2019 JOSE KATZ MD Ot F41. 9 ANXIETY DISORDER, UNSPECIFIED 09/24/2019 JOSE KATZ MD Ot G47. 30 SLEEP APNEA, UNSPECIFIED 09/24/2019 JOSE KATZ MD Ot I10 ESSENTIAL (PRIMARY) HYPERTENSION 09/24/2019 JOSE KATZ MD Ot I25. 10 ATHSCL HEART DISEASE OF [place] CORONARY 09/24/2019 JOSE KATZ MD Ot I25. 2 OLD MYOCARDIAL INFARCTION 09/24/2019 JOSE KATZ MD Ot J44. 9 CHRONIC OBSTRUCTIVE PULMONARY DISEASE, U 09/24/2019 JOSE KATZ MD Ot K21. 9 GASTRO-ESOPHAGEAL REFLUX DISEASE WITHOUT 09/24/2019 JOSE KATZ MD Ot R06. 02 SHORTNESS OF BREATH 09/24/2019 JOSE KATZ MD Ot R09. 02 HYPOXEMIA 09/24/2019 JOSE KATZ MD Ot Z77. 22 CNTCT W AND EXPSR TO ENVIRON TOBACCO SMO 09/24/2019 JOSE KATZ MD, Ot Z79. 02 SENIOR CARE (CURRENT) USE OF ANTITHROMBOTI 09/24/2019 JOSE KATZ MD, Ot Z79. 4 TESTER EQUIPMENT (CURRENT) USE OF INSULIN 09/24/2019 JOSE KATZ MD, Ot Z79. 82 SENIOR CARE (CURRENT) USE OF ASPIRIN 09/24/2019 JOSE KATZ MD, Ot Z80. 0 FAMILY [...] Z99. 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 09/29/2019 JERMAIN BARAKAT DOLINE S Ot 786.09 RESPIRATORY ABNORM NEC 09/29/2019 GASPER JOHNSON, LITA S Ot 786.50 CHEST PAIN NOS 09/29/2019 JASMINNDER , LITA S Ot V17.3 FAM HX-ISCHEM HEART DIS 09/29/2019 JASMINNDER DO, LITA S Ot 496 CHR AIRWAY OBSTRUCT NEC 09/29/2019 RAKEL THORPE DO Ot 278. 00 OBESITY, NOS 09/29/2019 RAEKL THORPE DO Ot 496 CHR AIRWAY OBSTRUCT NEC 09/29/2019 RAKEL THORPE DO Ot 786. 09 RESPIRATORY ABNORM NEC 09/29/2019 JASMINNDER DO LITA S Ot 496 09/29/2019 JASMINNDER DO LITA S Ot V57.89 09/29/2019 JASMINNDER DOALIZELITA S Ot K11.6 MUCOCELE OF SALIVARY [place] 09/29/2019 JASMINNDER DO LITA S Ot R22.1 LOCALIZED SWELLING, MASS AND LUMP, NECK 09/29/2019 JASMINNDER DO LITA S Ot M79.671 PAIN IN RIGHT FOOT 09/29/2019 JOYCE KAYE APRN Ot R91.1 SOLITARY PULMONARY NODULE 09/29/2019 ANAT, JARAD N MEDICAL OFFICE MANAGER Ot R06.02 SHORTNESS OF BREATH 09/29/2019 JARAD COPPOLA Marine MEDICAL OFFICE MANAGER Ot R07.9 CHEST PAIN, UNSPECIFIED 09/29/2019 JARAD COPPOLA [employer] MEDICAL OFFICE MANAGER Ot R53.83 OTHER FATIGUE 09/29/2019 RANDI SHAFFER [facility], ALI [facility] CCDS Ot I25.10 ATHSCL HEART DISEASE OF [place] CORONARY 09/29/2019 RANDI SHAFFER [facility], [place]I [facility] CCDS Ot R06.02 SHORTNESS OF BREATH 09/29/2019 RAKEL THORPE DO Ot J43. 8 OTHER EMPHYSEMA 09/29/2019 RAKEL THORPE DO Ot R06. 00 DYSPNEA, UNSPECIFIED 09/29/2019 RAKEL THORPE DO Ot R91. 1 SOLITARY PULMONARY NODULE 09/29/2019 RAKEL THORPE DO Ot Z87.891 PERSONAL HISTORY OF NICOTINE DEPENDENCE 09/29/2019 JASMINNDER DOLITA S Ot D64.9 ANEMIA, UNSPECIFIED 09/29/2019 CASSIA THOMPSON Ot S49.92XA UNSP INJURY OF LEFT SHOULDER AND UPPER A 09/29/2019 CASSIA THOMPSON Ot W19.XXXA UNSPECIFIED FALL, INITIAL ENCOUNTER 09/29/2019 CASSIA THOMPSON Ot Y99.8 OTHER EXTERNAL CAUSE STATUS 09/29/2019 ORENDER DOJERMAINLITA S Ot J84.9 INTERSTITIAL PULMONARY DISEASE, UNSPECIF 09/29/2019 JASMINNDER DOLITA S Ot J44.9 CHRONIC OBSTRUCTIVE PULMONARY DISEASE, U 09/29/2019 KENDALLHARRIS APRN Ot M25.561 PAIN IN RIGHT KNEE 09/29/2019 ORENDER DO, LITA S Ot R05 COUGH 09/29/2019 ORENDER DOJERMAINLITA S Ot R06.00 DYSPNEA, UNSPECIFIED 09/29/2019 JAY SHAFFER, SAMUEL Contreras Ot S42.025D NONDISP FX OF SHAFT OF L CLAVICLE, SUBS 09/29/2019 KENDALLHARRIS SHIN APRN Ot R06.00 DYSPNEA, UNSPECIFIED 09/29/2019 KENDALLHARRIS SHIN APRN Ot R42 DIZZINESS AND GIDDINESS 09/29/2019 ORENDER DOALIZELITA S Ot K57.90 DVRTCLOS OF INTEST, PART UNSP, W/O PERF 09/29/2019 [facility], LITA Man Ot K82.8 OTHER SPECIFIED DISEASES OF GALLBLADDER 09/29/2019 [facility], LITA S Ot N28.9 DISORDER OF KIDNEY AND URETER, UNSPECIFI 09/29/2019 [facility], LITA S Ot R16.0 HEPATOMEGALY, NOT ELSEWHERE CLASSIFIED 09/29/2019 [facility], LITA S Ot I12.9 HYPERTENSIVE CHRONIC KIDNEY DISEASE W ST 09/29/2019 [facility], LITA S Ot N18.9 CHRONIC KIDNEY DISEASE, UNSPECIFIED 09/29/2019 [facility], LITA S Ot N28.1 CYST OF KIDNEY, ACQUIRED 09/29/2019 [facility] Ot 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 9 ANEMIA, UNSPECIFIED 09/29/2019 PATTON DOSTEVAN Ot E11. 9 TYPE 2 DIABETES MELLITUS WITHOUT COMPLIC 09/29/2019 PATTON DOSTEVAN Ot G47. 33 OBSTRUCTIVE SLEEP APNEA (ADULT) (PEDIATR 09/29/2019 PATTON DOSTEVAN Ot I11. 0 HYPERTENSIVE HEART DISEASE WITH HEART FA 09/29/2019 PATTON STEVAN JOHNSON Ot I25. 10 ATHSCL HEART DISEASE OF [place] CORONARY 09/29/2019 PATTON DOSTEVAN Ot I50. 9 HEART FAILURE, UNSPECIFIED 09/29/2019 PATTON STEVAN JOHNSON Ot I65. 23 OCCLUSION AND STENOSIS OF BILATERAL BAZZI 09/29/2019 [facility] Ot J43. 9 EMPHYSEMA, UNSPECIFIED 09/29/2019 [facility] Ot K57. 30 DVRTCLOS OF LG INT W/O PERFORATION OR AB 09/29/2019 PATTON DOSTEVAN Ot Z79. 02 SENIOR CARE (CURRENT) USE OF ANTITHROMBOTI 09/29/2019 PATTON DOSTEVAN Ot Z79. 4 SENIOR CARE (CURRENT) USE OF INSULIN 09/29/2019 [facility] Ot Z79. 82 TESTER EQUIPMENT (CURRENT) USE OF ASPIRIN 09/29/2019 PATTON STEVAN Ot Z79.899 OTHER TESTER EQUIPMENT (CURRENT) DRUG THERAPY 09/29/2019 PATTON STEVAN Ot Z82. 49 FAMILY HX OF ISCHEM HEART DIS AND OTH DI 09/29/2019 PATTON STEVAN Ot Z83. 3 FAMILY HISTORY OF DIABETES MELLITUS 09/29/2019 PATTON STEVAN Ot Z87.891 PERSONAL HISTORY OF NICOTINE DEPENDENCE 09/29/2019 PATTON JAZMINTT Tone Ot Z88. 6 ALLERGY STATUS TO ANALGESIC AGENT STATUS 09/29/2019 PATTON DOSTEVAN Ot Z99. 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 09/29/2019 JOYCE KAYE MEDICAL OFFICE MANAGER Ot G47.33 OBSTRUCTIVE SLEEP APNEA (ADULT) (PEDIATR 09/29/2019 ALISTAIR KAYEINE Daja MEDICAL OFFICE MANAGER Ot J43.9 EMPHYSEMA, UNSPECIFIED 09/29/2019 ALISTAIR KAYEINE Daja MEDICAL OFFICE MANAGER Ot Z87.891 PERSONAL HISTORY OF NICOTINE DEPENDENCE 09/29/2019 JOYCE KAYE MEDICAL OFFICE MANAGER Ot G47.33 OBSTRUCTIVE SLEEP APNEA (ADULT) (PEDIATR 09/29/2019 ALISTAIR KAYEINE Daja MEDICAL OFFICE MANAGER Ot J43.9 EMPHYSEMA, UNSPECIFIED 09/29/2019 ALISTAIR KAYEINE Daja MEDICAL OFFICE MANAGER Ot R91.1 SOLITARY PULMONARY NODULE 09/29/2019 ALISTAIR KAYEINE Daja MEDICAL OFFICE MANAGER Ot Z87.891 PERSONAL HISTORY OF NICOTINE DEPENDENCE 09/29/2019 RAKEL THORPE DO Ot E04. 1 NONTOXIC SINGLE THYROID NODULE 09/29/2019 RAKEL THORPE DO Ot J43. 9 EMPHYSEMA, UNSPECIFIED 09/29/2019 RAKEL THORPE DO Ot Z87.891 PERSONAL HISTORY OF NICOTINE DEPENDENCE 09/29/2019 ALISTAIR KAYEINE Daja MEDICAL OFFICE MANAGER Ot G47.33 OBSTRUCTIVE SLEEP APNEA (ADULT) (PEDIATR 09/29/2019 ALISTAIR KAYEINE E MEDICAL OFFICE MANAGER Ot J43.9 EMPHYSEMA, UNSPECIFIED 09/29/2019 JOYCE KAYE MEDICAL OFFICE MANAGER Ot Z87.891 PERSONAL HISTORY OF NICOTINE DEPENDENCE 09/30/2019 GIANNA SHAFFER, JOSE Magdaleno Ot E11. 9 TYPE 2 DIABETES MELLITUS WITHOUT COMPLIC 09/30/2019 GIANNA SHAFFER, JOSE Magdaleno Ot E78. 00 PURE HYPERCHOLESTEROLEMIA, UNSPECIFIED 09/30/2019 GIANNA SHAFFER, JOSE Magdaleno Ot F41. 9 ANXIETY DISORDER, UNSPECIFIED 09/30/2019 JOSE KATZ MD, Ot G47. 30 SLEEP APNEA, UNSPECIFIED 09/30/2019 JOSE KATZ MD, Ot I10 ESSENTIAL (PRIMARY) HYPERTENSION 09/30/2019 JOSE KATZ MD, Ot I25. 10 ATHSCL HEART DISEASE OF [place] CORONARY 09/30/2019 JOSE KATZ MD, Ot I25. [...] 09/30/2019 JOSE KATZ MD, Ot Z79. 02 SENIOR CARE (CURRENT) USE OF ANTITHROMBOTI 09/30/2019 JOSE KATZ MD, Ot Z79. 4 SENIOR CARE (CURRENT) USE OF INSULIN 09/30/2019 JOSE KATZ MD, Ot Z79. 82 SENIOR CARE (CURRENT) USE OF ASPIRIN 09/30/2019 JOSE KATZ [...] DIABETES MELLITUS WITHOUT COMPLIC 10/02/2019 JOSE KATZ MD Ot E78. 00 PURE HYPERCHOLESTEROLEMIA, UNSPECIFIED 10/02/2019 GIANNA MD, JOSE J Ot F41. 9 ANXIETY DISORDER, UNSPECIFIED 10/02/2019 JOSE KATZ MD, Ot G47. 30 SLEEP APNEA, UNSPECIFIED 10/02/2019 JOSE KATZ MD, Ot I10 ESSENTIAL (PRIMARY) HYPERTENSION 10/02/2019 JOSE KATZ MD, Ot I25. 10 ATHSCL HEART DISEASE OF [place] CORONARY 10/02/2019 JOSE KATZ MD, Ot I25. [...] 10/02/2019 JOSE KATZ MD, Ot Z79. 02 TESTER EQUIPMENT (CURRENT) USE OF ANTITHROMBOTI 10/02/2019 JOSE KATZ MD, Ot Z79. 4 TESTER EQUIPMENT (CURRENT) USE OF INSULIN 10/02/2019 JOSE KATZ MD, Ot Z79. 82 TESTER EQUIPMENT (CURRENT) USE OF ASPIRIN 10/02/2019 JOSE KATZ [...] NONTOXIC SINGLE THYROID NODULE 10/03/2019 RAKEL THORPE DO, Ot J43. 9 EMPHYSEMA, UNSPECIFIED 10/03/2019 RAKEL THORPE DO Ot Z87.891 PERSONAL HISTORY OF NICOTINE DEPENDENCE 10/08/2019 JASMINNDER DO, LITA S Ot 786.09 RESPIRATORY ABNORM NEC 10/08/2019 JASMINNDER DO, LITA S Ot 786.50 CHEST PAIN NOS 10/08/2019 [facility], LITA S Ot V17.3 FAM HX-ISCHEM HEART DIS 10/08/2019 [facility], LITA S Ot 496 CHR AIRWAY OBSTRUCT NEC 10/08/2019 ILA JOHNSON, RAKEL Ramirez Ot 278. 00 OBESITY, NOS 10/08/2019 ILA JOHNSON, RAKEL Ramirez Ot 496 CHR AIRWAY OBSTRUCT NEC 10/08/2019 LIA JOHNSON, RAKEL Ramirez Ot 786. 09 RESPIRATORY ABNORM NEC 10/08/2019 [facility], LITA S Ot 496 10/08/2019 [facility], LITA S Ot V57.89 10/08/2019 [facility], LITA S Ot K11.6 MUCOCELE OF SALIVARY GLAND 10/08/[address] [facility] [address] [address], LITA S Ot R22.1 LOCALIZED SWELLING, MASS AND LUMP, NECK 10/08/2019 [facility] DO, LITA S Ot M79.671 PAIN IN RIGHT FOOT 10/08/2019 JOYCE KAYE MEDICAL OFFICE MANAGER Ot R91.1 SOLITARY PULMONARY NODULE 10/08/2019 JARAD COPPOLA MEDICAL OFFICE MANAGER Ot R06.02 SHORTNESS OF BREATH 10/08/2019 JARAD COPPOLA MEDICAL OFFICE MANAGER Ot R07.9 CHEST PAIN, UNSPECIFIED 10/08/2019 JARAD COPPOLA MEDICAL OFFICE MANAGER Ot R53.83 OTHER FATIGUE 10/08/2019 RANDI SHAFFER FAC, ALI FACP CCDS Ot I25.10 ATHSCL HEART DISEASE OF [place] CORONARY 10/08/2019 RANDI SHAFFER FACC, ALI FACP CCDS Ot R06.02 SHORTNESS OF BREATH 10/08/2019 RAKEL THORPE DO Ot J43. 8 OTHER EMPHYSEMA 10/08/2019 RAKEL THORPE DO Ot R06. 00 DYSPNEA, UNSPECIFIED 10/08/2019 RAKEL THORPE DO Ot R91. 1 SOLITARY PULMONARY NODULE 10/08/2019 RAKEL THORPE DO Ot Z87.891 PERSONAL HISTORY OF NICOTINE DEPENDENCE 10/08/2019 JASMINNDER DO, LITA S Ot D64.9 ANEMIA, UNSPECIFIED 10/08/2019 CASSIA THOMPSON DREW Ot S49.92XA UNSP INJURY OF LEFT SHOULDER AND UPPER A 10/08/2019 CASSIA THOMPSON DREW Ot W19.XXXA UNSPECIFIED FALL, INITIAL ENCOUNTER 10/08/2019 CASSIA THOMPSON DREW Ot Y99.8 OTHER EXTERNAL CAUSE STATUS 10/08/2019 JASMINNDER DO, LITA S Ot J84.9 INTERSTITIAL PULMONARY DISEASE, UNSPECIF 10/08/2019 JASMINNDER DO, LITA S Ot J44.9 CHRONIC OBSTRUCTIVE PULMONARY DISEASE, U 10/08/2019 HARRIS ARGUETA APRN Ot M25.561 PAIN IN RIGHT KNEE 10/08/2019 JASMINNDER DO, LITA S Ot R05 COUGH 10/08/2019 JASMINNDER DO, LITA S Ot R06.00 DYSPNEA, UNSPECIFIED 10/08/2019 JAY SHAFFER, SAMUEL Contreras Ot S42.025D NONDISP FX OF SHAFT OF L CLAVICLE, SUBS 10/08/2019 HARRIS ARGUETA APRN Ot R06.00 DYSPNEA, UNSPECIFIED 10/08/2019 HARRIS ARGUETA APRN Ot R42 DIZZINESS AND GIDDINESS 10/08/2019 JASMINNDER DO, LITA S Ot K57.90 DVRTCLOS OF INTEST, PART UNSP, W/O PERF 10/08/2019 JASMINNDER DO, LITA S Ot K82.8 OTHER SPECIFIED DISEASES OF GALLBLADDER 10/08/2019 JASMINNDER DO, LITA S Ot N28.9 DISORDER OF KIDNEY AND URETER, UNSPECIFI 10/08/2019 JASMINNDER DO, LITA S Ot R16.0 HEPATOMEGALY, NOT ELSEWHERE CLASSIFIED 10/08/2019 JASMINNDER DO, LITA S Ot I12.9 HYPERTENSIVE CHRONIC KIDNEY DISEASE W ST 10/08/2019 ORENDER DO, LITA S Ot N18.9 CHRONIC KIDNEY DISEASE, UNSPECIFIED 10/08/2019 JASMINNDER DO, LITA S Ot N28.1 CYST OF KIDNEY, ACQUIRED 10/08/2019 STEVAN PATTON DO Ot 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 9 ANEMIA, UNSPECIFIED 10/08/2019 [facility] Ot E11. 9 TYPE 2 DIABETES MELLITUS WITHOUT COMPLIC 10/08/2019 [facility] Ot G47. 33 OBSTRUCTIVE SLEEP APNEA (ADULT) (PEDIATR 10/08/2019 [facility] I11. 0 HYPERTENSIVE HEART DISEASE WITH HEART FA 10/08/2019 [facility] Ot I25. 10 ATHSCL HEART DISEASE OF [place] CORONARY 10/08/2019 [facility] I50. 9 HEART FAILURE, UNSPECIFIED 10/08/2019 [facility] I65. 23 OCCLUSION AND STENOSIS OF BILATERAL BAZZI 10/08/2019 [facility] J43. 9 EMPHYSEMA, UNSPECIFIED 10/08/2019 [facility] K57. 30 DVRTCLOS OF LG INT W/O PERFORATION OR AB 10/08/2019 [facility] Z79. 02 TESTER EQUIPMENT (CURRENT) USE OF ANTITHROMBOTI 10/08/2019 [facility] Z79. 4 SENIOR CARE (CURRENT) USE OF INSULIN 10/08/2019 [facility] Z79. 82 TESTER EQUIPMENT (CURRENT) USE OF ASPIRIN 10/08/2019 [facility] Z79.899 OTHER TESTER EQUIPMENT (CURRENT) DRUG THERAPY 10/08/2019 [facility] Ot Z82. 49 FAMILY HX OF [place] HEART DIS AND OTH DI 10/08/2019 [facility] Z83. 3 FAMILY HISTORY OF DIABETES MELLITUS 10/08/2019 [facility] Ot Z87.891 PERSONAL HISTORY OF NICOTINE DEPENDENCE 10/08/2019 [facility] Z88. 6 ALLERGY STATUS TO ANALGESIC AGENT STATUS 10/08/2019 [facility] Z99. 81 DEPENDENCE ON SUPPLEMENTAL [...] Z87.891 PERSONAL HISTORY OF NICOTINE DEPENDENCE 10/08/2019 RAKEL THORPE DO Ot E04. 1 NONTOXIC SINGLE THYROID NODULE 10/08/2019 ILA DORAKEL M Ot J43. 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 9 ANEMIA, UNSPECIFIED 10/08/2019 STEVAN PATTON DO Ot E11. 9 TYPE 2 DIABETES MELLITUS WITHOUT COMPLIC 10/08/2019 [facility] ST[facility]OHNSON Ot G47. 33 OBSTRUCTIVE SLEEP APNEA (ADULT) (PEDIATR 10/08/2019 [facility] STEV[facility]OHNSON Ot I11. 0 HYPERTENSIVE HEART DISEASE WITH HEART FA 10/08/2019 STEVAN PATTON DO Ot I25. 10 ATHSCL HEART DISEASE OF [place] CORONARY 10/08/2019 STEVAN PATTON DO Ot I50. 9 HEART FAILURE, UNSPECIFIED 10/08/2019 STEVAN PATTON DO Ot I65. 23 OCCLUSION AND STENOSIS OF BILATERAL BAZZI 10/08/2019 STEVAN PATTON DO Ot J43. 9 EMPHYSEMA, UNSPECIFIED 10/08/2019 [facility] STEVAN JOHNSON Ot K57. 30 DVRTCLOS OF LG INT W/O PERFORATION OR AB 10/08/2019 STEVAN PATTON DO Ot Z79. 02 SENIOR CARE (CURRENT) USE OF ANTITHROMBOTI 10/08/2019 [facility] Z79. 4 TESTER EQUIPMENT (CURRENT) USE OF INSULIN 10/08/2019 [facility] Ot Z79. 82 SENIOR CARE (CURRENT) USE OF ASPIRIN 10/08/2019 [facility] Z79.899 OTHER TESTER EQUIPMENT (CURRENT) DRUG THERAPY 10/08/2019 [facility] Z82. 49 FAMILY HX OF [place] HEART DIS AND OTH DI 10/08/2019 [facility] Z83. 3 FAMILY HISTORY OF DIABETES MELLITUS 10/08/2019 [facility] Ot Z87.891 PERSONAL HISTORY OF NICOTINE DEPENDENCE 10/08/2019 [facility] Z88. 6 ALLERGY STATUS TO ANALGESIC AGENT STATUS 10/08/2019 [facility] Z99. 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 10/09/2019 [facility], LITA S Ot 786.09 RESPIRATORY ABNORM NEC 10/09/2019 [facility], LITA S Ot 786.50 CHEST PAIN NOS 10/09/2019 [facility], LITA S Ot V17.3 FAM HX-[place]HE[place] HEART DIS 10/09/2019 [facility], LITA S Ot 496 CHR AIRWAY OBSTRUCT NEC 10/09/2019 RAKEL THORPE DO Ot 278. 00 OBESITY, NOS 10/09/2019 RAKEL THORPE DO Ot 496 CHR AIRWAY OBSTRUCT NEC 10/09/2019 RAKEL THORPE DO Ot 786. 09 RESPIRATORY ABNORM NEC 10/09/2019 [facility], LITA S Ot 496 10/09/2019 [facility], LITA S Ot V57.89 10/09/2019 [facility], LITA S Ot K11.6 MUCOCELE OF SALIVARY GLAND 10/09/2019 [facility], LITA S Ot R22.1 LOCALIZED SWELLING, MASS AND LUMP, NECK 10/09/2019 [facility], LITA S Ot M79.671 PAIN IN RIGHT FOOT 10/09/2019 JOYCE KAYE APRN Ot R91.1 SOLITARY PULMONARY NODULE 10/09/2019 JARAD COPPOLA MEDICAL OFFICE MANAGER Ot R06.02 SHORTNESS OF BREATH 10/09/2019 ANATKAROJARAD N MEDICAL OFFICE MANAGER Ot R07.9 CHEST PAIN, UNSPECIFIED 10/09/2019 JARAD COPPOLA MEDICAL OFFICE MANAGER Ot R53.83 OTHER FATIGUE 10/09/2019 RANDI SHAFFER [facility] CCDS Ot I25.10 ATHSCL HEART DISEASE OF [place] CORONARY 10/09/2019 RANDI SHAFFER [facility], [facility] CCDS Ot R06.02 SHORTNESS OF BREATH 10/09/2019 RAKEL THORPE DO Ot J43. 8 OTHER EMPHYSEMA 10/09/2019 RAKEL THORPE DO Ot R06. 00 DYSPNEA, UNSPECIFIED 10/09/2019 RAKEL THORPE DO Ot R91. 1 SOLITARY PULMONARY NODULE 10/09/2019 RAKEL THORPE DO Ot Z87.891 PERSONAL HISTORY OF NICOTINE DEPENDENCE 10/09/2019 ARMINER LITA JOHNSON S Ot D64.9 ANEMIA, UNSPECIFIED 10/09/2019 CASSIA THOMPSONP Ot S49.92XA UNSP INJURY OF LEFT SHOULDER AND UPPER A 10/09/2019 CASSIA THOMPSON OIL EXPELLER Ot W19.XXXA UNSPECIFIED FALL, INITIAL ENCOUNTER 10/09/2019 CASSIA THOMPSON OIL EXPELLER Ot Y99.8 OTHER EXTERNAL CAUSE STATUS 10/09/2019 ARMINER JERMAIN JOHNSONLINE S Ot J84.9 INTERSTITIAL PULMONARY DISEASE, UNSPECIF 10/09/2019 ARMINER ALIZE JOHNSONLITA S Ot J44.9 CHRONIC OBSTRUCTIVE PULMONARY DISEASE, U 10/09/2019 HARRIS ARGUETA MEDICAL OFFICE MANAGER Ot M25.561 PAIN IN RIGHT KNEE 10/09/2019 JASMINNDER , LITA S Ot R05 COUGH 10/09/2019 JASMINNDER ALIZE JOHNSONLITA S Ot R06.00 DYSPNEA, UNSPECIFIED 10/09/2019 JAY SHAFFER, SAMUEL Contreras Ot S42.025D NONDISP FX OF SHAFT OF L CLAVICLE, SUBS 10/09/2019 HARRIS ARGUETA MEDICAL OFFICE MANAGER Ot R06.00 DYSPNEA, UNSPECIFIED 10/09/2019 HARRIS ARGUETA MEDICAL OFFICE MANAGER Ot R42 DIZZINESS AND GIDDINESS 10/09/2019 JASMINNDER ALIZE JOHNSONLITA S Ot K57.90 DVRTCLOS OF INTEST, PART UNSP, W/O PERF 10/09/2019 ORENDER DO, LITA Man Ot K82.8 OTHER SPECIFIED DISEASES OF [place] 10/09/2019 [facility] Ot N28.9 DISORDER OF KIDNEY AND URETER, UNSPECIFI 10/09/2019 ORENDER DO, LITA S Ot R16.0 HEPATOMEGALY, NOT ELSEWHERE CLASSIFIED 10/09/2019 ORENDER DO, LITA S Ot I12.9 HYPERTENSIVE CHRONIC KIDNEY DISEASE W ST 10/09/2019 ORENDER DO, LITA S Ot N18.9 CHRONIC KIDNEY DISEASE, UNSPECIFIED 10/09/2019 [facility], LITA S Ot N28.1 CYST OF KIDNEY, ACQUIRED 10/09/2019 [facility] Ot 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 9 ANEMIA, UNSPECIFIED 10/09/2019 PATTON DOSTEVAN Ot E11. 9 TYPE 2 DIABETES MELLITUS WITHOUT COMPLIC 10/09/2019 PATTON DOSTEVAN Ot G47. 33 OBSTRUCTIVE SLEEP APNEA (ADULT) (PEDIATR 10/09/2019 [facility] Ot I11. 0 HYPERTENSIVE HEART DISEASE WITH HEART FA 10/09/2019 STEVAN PATTON DO Ot I25. 10 ATHSCL HEART DISEASE OF [place] CORONARY 10/09/2019 [facility] Ot I50. 9 HEART FAILURE, UNSPECIFIED 10/09/2019 WINDBER STEVAN JOHNSON Ot I65. 23 OCCLUSION AND STENOSIS OF BILATERAL BAZZI 10/09/2019 [facility] Ot J43. 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 02 SENIOR CARE (CURRENT) USE OF ANTITHROMBOTI 10/09/2019 [facility] Ot Z79. 4 TESTER EQUIPMENT (CURRENT) USE OF INSULIN 10/09/2019 WINDBER DOSTEVAN Ot Z79. 82 SENIOR CARE (CURRENT) USE OF ASPIRIN 10/09/2019 STEVAN PATTON DO Ot Z79.899 OTHER SENIOR CARE (CURRENT) DRUG THERAPY 10/09/2019 ABDI JOHNSON STEVAN Tone Ot Z82. 49 FAMILY HX OF ISCHEM HEART DIS AND OTH DI 10/09/2019 ABDI JOHNSON STEVAN Tone Ot Z83. 3 FAMILY HISTORY OF DIABETES MELLITUS 10/09/2019 STEVAN PATTON DO Tone Ot Z87.891 PERSONAL HISTORY OF NICOTINE DEPENDENCE 10/09/2019 STEVAN PATTON DO Tone Ot Z88. 6 ALLERGY STATUS TO ANALGESIC AGENT STATUS 10/09/2019 ABDI JOHNSON STEVAN D Ot Z99. 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 10/09/2019 ALISTAIR KAYEINE Daja MEDICAL OFFICE MANAGER Ot G47.33 OBSTRUCTIVE SLEEP APNEA (ADULT) (PEDIATR 10/09/2019 ALISTAIR KAYEINE Daja MEDICAL OFFICE MANAGER Ot J43.9 EMPHYSEMA, UNSPECIFIED 10/09/2019 JOYCE KAYE MEDICAL OFFICE MANAGER Ot Z87.891 PERSONAL HISTORY OF NICOTINE DEPENDENCE 10/09/2019 JOYCE KAYE MEDICAL OFFICE MANAGER Ot G47.33 OBSTRUCTIVE SLEEP APNEA (ADULT) (PEDIATR 10/09/2019 ALISTAIR KAYEINE Daja MEDICAL OFFICE MANAGER Ot J43.9 EMPHYSEMA, UNSPECIFIED 10/09/2019 MIKKI JOYCE E MEDICAL OFFICE MANAGER Ot R91.1 SOLITARY PULMONARY NODULE 10/09/2019 ALISTAIR KAYEINE E MEDICAL OFFICE MANAGER Ot Z87.891 PERSONAL HISTORY OF NICOTINE DEPENDENCE 10/09/2019 RAKEL THORPE DO Ot E04. 1 NONTOXIC SINGLE THYROID NODULE 10/09/2019 RAKEL THORPE DO Ot J43. 9 EMPHYSEMA, UNSPECIFIED 10/09/2019 RAKEL THORPE DO Ot Z87.891 PERSONAL HISTORY OF NICOTINE DEPENDENCE 10/09/2019 JOYCE KAYE MEDICAL OFFICE MANAGER Ot G47.33 OBSTRUCTIVE SLEEP APNEA (ADULT) (PEDIATR 10/09/2019 ALISTAIR KAYEINE Daja MEDICAL OFFICE MANAGER Ot J43.9 EMPHYSEMA, UNSPECIFIED 10/09/2019 JOYCE KAYE MEDICAL OFFICE MANAGER Ot Z87.891 PERSONAL HISTORY OF NICOTINE DEPENDENCE 10/17/2019 TATA HERMOSILLO APRN Ot E11 .9 TYPE 2 DIABETES MELLITUS WITHOUT COMPLIC 10/17/2019 TATA HERMOSILLO APRN Ot E78.00 PURE HYPERCHOLESTEROLEMIA, UNSPECIFIED 10/17/2019 TATA HERMOSILLO APRN Ot F41 .9 ANXIETY DISORDER, UNSPECIFIED 10/17/2019 TATA HERMOSILLO APRN Ot G47.30 SLEEP APNEA, UNSPECIFIED 10/17/2019 TATA HERMOSILLO APRN Ot I10 ESSENTIAL (PRIMARY) HYPERTENSION 10/17/2019 TATA HERMOSILLO APRN Ot I25.10 ATHSCL HEART DISEASE OF [place] CORONARY 10/17/2019 TATA HERMOSILLO APRN Ot I25 .2 OLD MYOCARDIAL INFARCTION 10/17/2019 TATA HERMOSILLO APRN Ot J44 .9 CHRONIC OBSTRUCTIVE PULMONARY DISEASE, U 10/17/2019 TATA HERMOSILLO APRN Ot K21 .9 GASTRO-ESOPHAGEAL REFLUX DISEASE WITHOUT 10/17/2019 TATA HERMOSILLO APRN Ot R06.02 SHORTNESS OF BREATH 10/17/2019 TATA HERMOSILLO APRN Ot Z79.02 TESTER EQUIPMENT (CURRENT) USE OF ANTITHROMBOTI 10/17/2019 TATA HERMOSILLO APRN Ot Z79 .4 TESTER EQUIPMENT (CURRENT) USE OF INSULIN 10/17/2019 TATA HERMOSILLO APRN Ot Z79.52 SENIOR CARE (CURRENT) USE OF SYSTEMIC STER 10/17/2019 TATA HERMOSILLO APRN Ot Z79.82 TESTER EQUIPMENT (CURRENT) USE OF ASPIRIN 10/17/2019 TATA HERMOSILLO APRN Ot Z80 .0 FAMILY HISTORY OF MALIGNANT NEOPLASM OF 10/17/2019 TATA HERMOSILLO APRN Ot Z82.49 FAMILY HX OF ISCHEM HEART DIS AND OTH DI 10/17/2019 TATA HERMOSILLO APRN Ot Z85.828 PERSONAL HISTORY OF OTHER MALIGNANT NEOP 10/17/2019 TATA HERMOSILLO APRN Ot Z87.891 PERSONAL HISTORY OF NICOTINE DEPENDENCE 10/17/2019 TATA HERMOSILLO APRN Ot Z88 .5 ALLERGY STATUS TO NARCOTIC AGENT STATUS 10/17/2019 TATA HERMOSILLO APRN Ot Z95 .5 PRESENCE OF CORONARY ANGIOPLASTY IMPLANT 10/17/2019 TATA HERMOSILLO APRN Ot 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 10/17/2019 ORENDER DO, LITA S Ot 786.09 RESPIRATORY ABNORM NEC 10/17/2019 JASMINNDER DO, LITA S Ot 786.50 CHEST PAIN NOS 10/17/2019 ORENDER DO, LITA S Ot V17.3 FAM HX-ISCHEM HEART DIS 10/17/2019 JASMINNDER DO, LITA S Ot 496 CHR AIRWAY OBSTRUCT NEC 10/17/2019 RAKEL THORPE DO Ot 278. 00 OBESITY, NOS 10/17/2019 RAKEL THORPE DO Ot 496 CHR AIRWAY OBSTRUCT NEC 10/17/2019 RAKEL THORPE DO Ot 786. 09 RESPIRATORY ABNORM NEC 10/17/2019 [facility] LITA S Ot 496 10/17/2019 ORENDER DO, LITA S Ot V57.89 10/17/2019 ORENDER DO, LITA S Ot K11.6 MUCOCELE OF [place]IVARY [place] 10/17/2019 ORENDER DO, LITA S Ot R22.1 LOCALIZED SWELLING, MASS AND LUMP, NECK 10/17/2019 ORENDER DO, LITA S Ot M79.671 PAIN IN RIGHT FOOT 10/17/2019 JOYCE KAYE MEDICAL OFFICE MANAGER Ot R91.1 SOLITARY PULMONARY NODULE 10/17/2019 JARAD COPPOLA MEDICAL OFFICE MANAGER Ot R06.02 SHORTNESS OF BREATH 10/17/2019 JARAD COPPOLA MEDICAL OFFICE MANAGER Ot R07.9 CHEST PAIN, UNSPECIFIED 10/17/2019 JARAD COPPOLA MEDICAL OFFICE MANAGER Ot R53.83 OTHER FATIGUE 10/17/2019 RANDI SHAFFER FAC, ALI [facility] CCDS Ot I25.10 ATHSCL HEART DISEASE OF [place] CORONARY 10/17/2019 RANDI SHAFFER FAC, ALI FACP CCDS Ot R06.02 SHORTNESS OF BREATH 10/17/2019 RAKEL THORPE DO Ot J43. 8 OTHER EMPHYSEMA 10/17/2019 RAKEL THORPE DO Ot R06. 00 DYSPNEA, UNSPECIFIED 10/17/2019 RAKEL THORPE DO Ot R91. 1 SOLITARY PULMONARY NODULE 10/17/2019 RAKEL THORPE DO Ot Z87.891 PERSONAL HISTORY OF NICOTINE DEPENDENCE 10/17/2019 JASMINNDER DO, LITA S Ot D64.9 ANEMIA, UNSPECIFIED 10/17/2019 CASSIA THOMPSON Ot S49.92XA UNSP INJURY OF LEFT SHOULDER AND UPPER A 10/17/2019 CASSIA THOMPSON Ot W19.XXXA UNSPECIFIED FALL, INITIAL ENCOUNTER 10/17/2019 CASSIA THOMPSON Ot Y99.8 OTHER EXTERNAL CAUSE STATUS 10/17/2019 [facility], LITA S Ot J84.9 INTERSTITIAL PULMONARY DISEASE, UNSPECIF 10/17/2019 [facility] DO, LITA S Ot J44.9 CHRONIC OBSTRUCTIVE PULMONARY DISEASE, U 10/17/2019 KENDALL, HARRISBENIGNO Harper APRN Ot M25.561 PAIN IN RIGHT KNEE 10/17/2019 [facility], LITA S Ot R05 COUGH 10/17/2019 [facility], LITA S Ot R06.00 DYSPNEA, UNSPECIFIED 10/17/2019 JAY SHAFFER, SAMUEL Contreras Ot S42.025D NONDISP FX OF SHAFT OF L CLAVICLE, SUBS 10/17/2019 KENDALLHARRIS SHIN APRN Ot R06.00 DYSPNEA, UNSPECIFIED 10/17/2019 KENDALLHARRIS APRN Ot R42 DIZZINESS AND GIDDINESS 10/17/2019 [facility], LITA S Ot K57.90 DVRTCLOS OF INTEST, PART UNSP, W/O PERF 10/17/2019 [facility], LITA S Ot K82.8 OTHER SPECIFIED DISEASES OF [place] 10/17/2019 [facility], LITA S Ot N28.9 DISORDER OF KIDNEY AND URETER, UNSPECIFI 10/17/2019 [facility] DOLITA S Ot R16.0 HEPATOMEGALY, NOT ELSEWHERE CLASSIFIED 10/17/2019 [facility], LITA S Ot I12.9 HYPERTENSIVE CHRONIC KIDNEY DISEASE W ST 10/17/2019 [facility] DOLITA S Ot N18.9 CHRONIC KIDNEY DISEASE, UNSPECIFIED 10/17/2019 [facility], LITA S Ot N28.1 CYST OF KIDNEY, ACQUIRED 10/17/2019 STEVAN PATTON DO Ot 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 9 ANEMIA, UNSPECIFIED 10/17/2019 STEVAN PATTON DO Ot E11. 9 TYPE 2 DIABETES MELLITUS WITHOUT COMPLIC 10/17/2019 STEVAN PATTON DO Ot G47. 33 OBSTRUCTIVE SLEEP APNEA (ADULT) (PEDIATR 10/17/2019 STEVAN PATTON DO Ot I11. 0 HYPERTENSIVE HEART DISEASE WITH HEART FA 10/17/2019 STEVAN PATTON DO Ot I25. 10 ATHSCL HEART DISEASE OF [place] CORONARY 10/17/2019 [facility] Ot I50. 9 HEART FAILURE, UNSPECIFIED 10/17/2019 [facility] Ot I65. 23 OCCLUSION AND STENOSIS OF BILATERAL BAZZI 10/17/2019 [facility] Ot J43. 9 EMPHYSEMA, UNSPECIFIED 10/17/2019 [facility] Ot K57. 30 DVRTCLOS OF LG INT W/O PERFORATION OR AB 10/17/2019 [facility] Ot Z79. 02 SENIOR CARE (CURRENT) USE OF ANTITHROMBOTI 10/17/2019 [facility] Ot Z79. 4 SENIOR CARE (CURRENT) USE OF INSULIN 10/17/2019 [facility] Ot Z79. 82 SENIOR CARE (CURRENT) USE OF ASPIRIN 10/17/2019 [facility] Ot Z79.899 OTHER TESTER EQUIPMENT (CURRENT) DRUG THERAPY 10/17/2019 [facility] Ot Z82. 49 FAMILY HX OF ISCHEM HEART DIS AND OTH DI 10/17/2019 [facility] Ot Z83. 3 FAMILY HISTORY OF DIABETES MELLITUS 10/17/2019 [facility] Ot Z87.891 PERSONAL HISTORY OF NICOTINE DEPENDENCE 10/17/2019 [facility] Ot Z88. 6 ALLERGY STATUS TO ANALGESIC AGENT STATUS 10/17/2019 [facility] Ot Z99. 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 10/17/2019 JOYCE KAYE APRN Ot G47.33 OBSTRUCTIVE SLEEP APNEA (ADULT) (PEDIATR 10/17/2019 JOYCE KAYE APRN Ot J43.9 EMPHYSEMA, UNSPECIFIED 10/17/2019 JOYCE KAYE APRN Ot Z87.891 PERSONAL HISTORY OF NICOTINE DEPENDENCE 10/17/2019 JOYCE AKYE APRN Ot G47.33 OBSTRUCTIVE SLEEP APNEA (ADULT) (PEDIATR 10/17/2019 JOYCE KAYE APRN Ot J43.9 EMPHYSEMA, UNSPECIFIED 10/17/2019 JOYCE KAYE APRN Ot R91.1 SOLITARY PULMONARY NODULE 10/17/2019 JOYCE KAYE APRN Ot Z87.891 PERSONAL HISTORY OF NICOTINE DEPENDENCE 10/17/2019 RAKEL THORPE DO Ot E04. 1 NONTOXIC SINGLE THYROID NODULE 10/17/2019 RAKEL THORPE DO Ot J43. 9 EMPHYSEMA, UNSPECIFIED 10/17/2019 RAKEL THORPE DO Ot Z87.891 PERSONAL [...] APRN Ot I25.10 ATHSCL HEART DISEASE OF [place] CORONARY 10/20/2019 TATA HERMOSILLO APRN Ot I25 .2 OLD MYOCARDIAL INFARCTION 10/20/2019 TATA HERMOSILLO APRN Ot J44 .9 CHRONIC OBSTRUCTIVE PULMONARY DISEASE, U 10/20/2019 TATA HERMOSILLO APRN Ot K21 .9 GASTRO-ESOPHAGEAL REFLUX DISEASE WITHOUT 10/20/2019 TATA HERMOSILLO APRN Ot R06.02 SHORTNESS OF BREATH 10/20/2019 TATA HERMOSILLO APRN Ot Z79.02 SENIOR CARE (CURRENT) USE OF ANTITHROMBOTI 10/20/2019 TATA HERMOSILLO APRN Ot Z79 .4 TESTER EQUIPMENT (CURRENT) USE OF INSULIN 10/20/2019 TATA HERMOSILLO APRN Ot Z79.52 TESTER EQUIPMENT (CURRENT) USE OF SYSTEMIC STER 10/20/2019 TATA HERMOSILLO APRN Ot Z79.82 TESTER EQUIPMENT (CURRENT) USE OF ASPIRIN 10/20/2019 TATA HERMOSILLO [...] 3 BENIGN NEOPLASM OF TRANSVERSE COLON 11/05/2019 PATTON STEVAN JOHNSON Ot D64. 9 ANEMIA, UNSPECIFIED 11/05/2019 [facility] Ot E11. 9 TYPE 2 DIABETES MELLITUS WITHOUT COMPLIC 11/05/2019 WINDBER STEVAN JOHNSON Ot G47. 33 OBSTRUCTIVE SLEEP APNEA (ADULT) (PEDIATR 11/05/2019 STEVAN PATTON DO Ot I11. 0 HYPERTENSIVE HEART DISEASE WITH HEART FA 11/05/2019 APTTON STEVAN JOHNSON Ot I25. 10 ATHSCL HEART DISEASE OF [place] CORONARY 11/05/2019 PATTON STEVAN JOHNSON Ot I50. 9 HEART FAILURE, UNSPECIFIED 11/05/2019 PATTON STEVAN JOHNSON Ot I65. 23 OCCLUSION AND STENOSIS OF BILATERAL BAZZI 11/05/2019 WINDBER STEVAN JOHNSON Ot J43. 9 EMPHYSEMA, UNSPECIFIED 11/05/2019 WINDBER STEVAN JOHNSON Ot K57. 30 DVRTCLOS OF LG INT W/O PERFORATION OR AB 11/05/2019 STEVAN PATTON DO Ot Z79. 02 TESTER EQUIPMENT (CURRENT) USE OF ANTITHROMBOTI 11/05/2019 STEVAN PATTON DO Ot Z79. 4 SENIOR CARE (CURRENT) USE OF INSULIN 11/05/2019 STEVAN PATTON DO Ot Z79. 82 TESTER EQUIPMENT (CURRENT) USE OF ASPIRIN 11/05/2019 PATTON STEVAN JOHNSON Ot Z79.899 OTHER SENIOR CARE (CURRENT) DRUG THERAPY 11/05/2019 PATTON STEVAN JOHNSON Ot Z82. 49 FAMILY HX OF ISCHEM HEART DIS AND OTH DI 11/05/2019 STEVAN PATTON DO D Ot Z83. 3 FAMILY HISTORY OF DIABETES MELLITUS 11/05/2019 [facility] Ot Z87.891 PERSONAL HISTORY OF NICOTINE DEPENDENCE 11/05/2019 [facility] Ot Z88. 6 ALLERGY STATUS TO ANALGESIC AGENT STATUS 11/05/2019 [facility] Ot Z99. 81 DEPENDENCE ON SUPPLEMENTAL [...] F41.9 ANXIETY DISORDER, UNSPECIFIED 11/21/2019 DEACON RIBEIRO MD, Ot I10 ESSENTIAL (PRIMARY) HYPERTENSION 11/21/2019 DEACON RIBEIRO MD, Ot I25.10 ATHSCL HEART DISEASE OF [place] CORONARY 11/21/2019 DEACON RIBEIRO MD, Ot I25.2 [...] SMO 11/21/2019 DEACON RIBEIRO MD, Ot Z79.4 SENIOR CARE (CURRENT) USE OF INSULIN 11/21/2019 DEACON RIBEIRO MD, Ot Z79.82 SENIOR CARE (CURRENT) USE OF ASPIRIN 11/21/2019 DEACON RIBEIRO MD, Ot Z80.0 FAMILY HISTORY OF MALIGNANT NEOPLASM OF 11/21/2019 DEACON RIBEIRO MD, Ot Z82.49 FAMILY HX OF ISCHEM HEART DIS AND OTH DI 11/21/2019 DEACON RIBEIRO MD, Ot Z85.828 PERSONAL HISTORY OF OTHER MALIGNANT NEOP 11/21/2019 DEACON RIBEIRO MD, Ot Z87.891 PERSONAL HISTORY OF NICOTINE DEPENDENCE 11/21/2019 DEACON RIBEIRO MD, Ot Z88.5 ALLERGY STATUS TO NARCOTIC AGENT STATUS 11/21/2019 DEACON RIBEIRO MD, Ot 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 11/21/2019 W 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 11/21/2019 W J44.9 Manager Export rebecca airway obstruction, not elsewhere classified Lita Barakat S. 11/21/2019 W J96.12 Chr onic respiratory failure with hypercapnia Lita Barakat S. 12/22/2019 W G47.00 Ins omnia Jermain Barakatline S. 12/22/2019 W M25.561 Pa in in right knee Lita Barakat S. 12/22/2019 W Z91.19 Non compliance with diabetes treatment Lita Barakat S. 12/23/2019 CHANO JOHNSON CIERA K Ot E11.9 TYPE 2 DIABETES MELLITUS WITHOUT COMPLIC 12/23/2019 CHANO JOHNSON CIERA K Ot E78.00 PURE HYPERCHOLESTEROLEMIA, UNSPECIFIED 12/23/2019 CHANO DO CIERA K Ot F41.9 ANXIETY DISORDER, UNSPECIFIED 12/23/2019 CHANO DO CIERA K Ot G89.29 OTHER CHRONIC PAIN 12/23/2019 CHANO DO CIERA K Ot I10 ESSENTIAL (PRIMARY) HYPERTENSION 12/23/2019 CHANO DO CIERA K Ot I25.10 ATHSCL HEART DISEASE OF [place] CORONARY 12/23/2019 CHANO DO CIERA K Ot I25.2 OLD MYOCARDIAL INFARCTION 12/23/2019 CHANO DO CIERA K Ot J44.9 CHRONIC OBSTRUCTIVE PULMONARY DISEASE, U 12/23/2019 CHANO DO CIERA K Ot K21.9 GASTRO-ESOPHAGEAL REFLUX DISEASE WITHOUT 12/23/2019 CHANO DO, CIERA K Ot M19.91 PRIMARY OSTEOARTHRITIS, UNSPECIFIED SITE 12/23/2019 CHANO DO, CIERA K Ot M25.561 PAIN IN RIGHT KNEE 12/23/2019 CHANO DO, CIERA K Ot R06.02 SHORTNESS OF BREATH 12/23/2019 CHANO DO, CIERA K Ot Z79.4 SENIOR CARE (CURRENT) USE OF INSULIN 12/23/2019 CHANO DO, CIERA K Ot Z79.82 TESTER EQUIPMENT (CURRENT) USE OF ASPIRIN 12/23/2019 CHANO DO, CIERA K Ot Z79.899 OTHER TESTER EQUIPMENT (CURRENT) DRUG THERAPY 12/23/2019 CHANO DO, CIERA K Ot Z85.828 PERSONAL HISTORY OF OTHER MALIGNANT NEOP 12/23/2019 [place] DO, CIERA K Ot Z87.891 PERSONAL HISTORY OF NICOTINE DEPENDENCE 12/23/2019 [place] DO, CIERA K Ot Z91.19 PATIENT'S NONCOMPLIANCE W [facility] 12/23/2019 [facility]O DO, CIERA K Ot 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 ANGIOPLASTY IMPLANT 12/23/2019 CHANO DO, CIERA K Ot 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 12/24/2019 CHANO DO, CIERA K Ot E11.9 TYPE 2 DIABETES MELLITUS WITHOUT COMPLIC 12/24/2019 CHANO DO, CIERA K Ot E78.00 PURE HYPERCHOLESTEROLEMIA, UNSPECIFIED 12/24/2019 [facility]O DO, CIERA K Ot F41.9 ANXIETY DISORDER, UNSPECIFIED 12/24/2019 CH[facility]O DO, CIERA K Ot G89.29 OTHER CHRONIC PAIN 12/24/2019 [place] DO, CIERA K Ot I10 ESSENTIAL (PRIMARY) HYPERTENSION 12/24/2019 CHANO DO, CIERA K Ot I25.10 ATHSCL HEART DISEASE OF [place] CORONARY 12/24/2019 [facility] DO, CIERA K Ot I25.2 OLD MYOCARDIAL INFARCTION 12/24/2019 [facility] DO, CIERA K Ot J44.9 CHRONIC OBSTRUCTIVE PULMONARY DISEASE, U 12/24/2019 [facility]O DO, CIERA K Ot K21.9 GASTRO-ESOPHAGEAL REFLUX DISEASE WITHOUT 12/24/2019 [facility] DO, CIERA K Ot M19.91 PRIMARY OSTEOARTHRITIS, UNSPECIFIED SITE 12/24/2019 [facility] DO, CIERA K Ot M25.561 PAIN IN RIGHT KNEE 12/24/2019 [place] DO, CIERA K Ot R06.02 SHORTNESS OF BREATH 12/24/2019 [place] DO, CIERA K Ot Z79.4 TESTER EQUIPMENT (CURRENT) USE OF INSULIN 12/24/2019 [place] DO, CIERA K Ot Z79.82 TESTER EQUIPMENT (CURRENT) USE OF ASPIRIN 12/24/2019 [place] DO CIERA K Ot Z79.899 OTHER TESTER EQUIPMENT (CURRENT) DRUG THERAPY 12/24/2019 [facility] CIERA K Ot Z85.828 PERSONAL HISTORY OF OTHER MALIGNANT NEOP 12/24/2019 [facility] CIERA K Ot Z87.891 PERSONAL HISTORY OF NICOTINE DEPENDENCE 12/24/2019 [facility] CIERA K Ot Z91.19 PATIENT'S NONCOMPLIANCE W [facility] 12/24/2019 [facility] 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 ANGIOPLASTY IMPLANT 12/24/2019 [facility] 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 12/25/2019 W J44.1 Manager Export rebecca obstructive pulmonary disease with (acute) exacerbation Lita Barakat S. 12/25/2019 W J44.1 Manager Export rebecca obstructive pulmonary disease with (acute) exacerbation Lita Barakat S. 12/28/2019 [facility] CIERA K Ot E11.9 TYPE 2 DIABETES MELLITUS WITHOUT COMPLIC 12/28/2019 [place] DO CIERA K Ot E78.00 PURE HYPERCHOLESTEROLEMIA, UNSPECIFIED 12/28/2019 [place] DO CIERA K Ot F41.9 ANXIETY DISORDER, UNSPECIFIED 12/28/2019 [place] DO CIERA K Ot G89.29 OTHER CHRONIC PAIN 12/28/2019 [place] DO CIERA K Ot I10 ESSENTIAL (PRIMARY) HYPERTENSION 12/28/2019 [place] DO CIERA K Ot I25.10 ATHSCL HEART DISEASE OF [place] CORONARY 12/28/2019 [place] DO CIERA K Ot I25.2 OLD MYOCARDIAL INFARCTION 12/28/2019 [place] DO CIERA K Ot J44.9 CHRONIC OBSTRUCTIVE PULMONARY DISEASE, U 12/28/2019 [facility] DO CIERA K Ot K21.9 GASTRO-ESOPHAGEAL REFLUX DISEASE WITHOUT 12/28/2019 [facility] DO CIERA K Ot M19.91 PRIMARY OSTEOARTHRITIS, UNSPECIFIED SITE 12/28/2019 [facility], CIERA Busch Ot M25.561 PAIN IN RIGHT KNEE 12/28/2019 [facility], CIERA Busch Ot R06.02 SHORTNESS OF BREATH 12/28/2019 [facility], CIERA K Ot Z79.4 SENIOR CARE (CURRENT) USE OF INSULIN 12/28/2019 [facility], CIERA K Ot Z79.82 TESTER EQUIPMENT (CURRENT) USE OF ASPIRIN 12/28/2019 [facility], CIERA K Ot Z79.899 OTHER SENIOR CARE (CURRENT) DRUG THERAPY 12/28/2019 [facility], CIERA K Ot Z85.828 PERSONAL HISTORY OF OTHER MALIGNANT NEOP 12/28/2019 [facility], CIERA K Ot Z87.891 PERSONAL HISTORY OF NICOTINE DEPENDENCE 12/28/2019 [facility], CIERA Busch Ot Z91.19 PATIENT'S NONCOMPLIANCE W [facility] 12/28/2019 [facility], CIERA K Ot 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 ANGIOPLASTY IMPLANT 12/28/2019 [facility], CIERA K Ot 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 12/31/2019 [facility], LITA S Ot E11.9 TYPE 2 DIABETES MELLITUS WITHOUT COMPLIC 12/31/2019 [facility] E78.00 PURE HYPERCHOLESTEROLEMIA, UNSPECIFIED 12/31/2019 [facility], LITA S Ot G20 PARKINSON'S DISEASE 12/31/2019 [facility], LITA S Ot G89.29 OTHER CHRONIC PAIN 12/31/2019 [facility], LITA S Ot I10 ESSENTIAL (PRIMARY) HYPERTENSION 12/31/2019 [facility], LITA S Ot I25.10 ATHSCL HEART DISEASE OF [place] CORONARY 12/31/[address] [facility] S Ot I34.0 NONRHEUMATIC MITRAL (VALVE) INSUFFICIENC 12/31/2019 [facility], LITA S Ot J44.1 CHRONIC OBSTRUCTIVE PULMONARY DISEASE W 12/31/2019 [facility] K21.9 GASTRO-ESOPHAGEAL REFLUX DISEASE WITHOUT 12/31/[address] [facility] [address] Ot M25.261 FLAIL JOINT, RIGHT KNEE 12/31/2019 [facility], LITA S Ot Z79.4 TESTER EQUIPMENT (CURRENT) USE OF INSULIN 12/31/2019 [facility], LITA S Ot Z79.82 TESTER EQUIPMENT (CURRENT) USE OF ASPIRIN 12/31/2019 [facility], LITA S Ot Z79.899 OTHER SENIOR CARE (CURRENT) DRUG THERAPY 12/31/2019 [facility], LITA S Ot Z85.828 PERSONAL HISTORY OF OTHER MALIGNANT NEOP 12/31/2019 [facility], LITA S Ot Z87.891 PERSONAL HISTORY OF NICOTINE DEPENDENCE 12/31/2019 [facility], LITA S Ot Z88.6 ALLERGY STATUS TO ANALGESIC AGENT STATUS 12/31/2019 [facility], LITA S Ot 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 ANGIOPLASTY IMPLANT 12/31/2019 [facility], LITA S Ot 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 12/31/2019 [facility], LITA S Ot E11.9 TYPE 2 DIABETES MELLITUS WITHOUT COMPLIC 12/31/2019 [facility], LITA S Ot E78.00 PURE HYPERCHOLESTEROLEMIA, UNSPECIFIED 12/31/2019 [facility], LITA S Ot G20 PARKINSON'S DISEASE 12/31/2019 [facility], LITA S Ot G89.29 OTHER CHRONIC PAIN 12/31/2019 [facility], LIAT S Ot I10 ESSENTIAL (PRIMARY) HYPERTENSION 12/31/2019 [facility], LITA S Ot I25.10 ATHSCL HEART DISEASE OF [place] CORONARY 12/31/2019 [facility], LITA S Ot I34.0 NONRHEUMATIC MITRAL (VALVE) INSUFFICIENC 12/31/2019 [facility], LITA S Ot J44.1 CHRONIC OBSTRUCTIVE PULMONARY DISEASE W 12/31/2019 [facility], LITA S Ot K21.9 GASTRO-ESOPHAGEAL REFLUX DISEASE WITHOUT 12/31/2019 [facility], LITA S Ot M25.261 FLAIL JOINT, RIGHT KNEE 12/31/2019 [facility], LITA S Ot Z79.4 TESTER EQUIPMENT (CURRENT) USE OF INSULIN 12/31/2019 [facility], LITA S Ot Z79.82 TESTER EQUIPMENT (CURRENT) USE OF ASPIRIN 12/31/2019 [facility], LITA Man Ot Z79.899 OTHER SENIOR CARE (CURRENT) DRUG THERAPY 12/31/2019 JASMINNDER , LITA S Ot Z85.828 PERSONAL HISTORY OF OTHER MALIGNANT NEOP 12/31/2019 [facility], LITA Man Ot Z87.891 PERSONAL HISTORY OF NICOTINE DEPENDENCE 12/31/2019 [facility], LITA Man Ot Z88.6 ALLERGY STATUS TO ANALGESIC AGENT STATUS 12/31/2019 [facility], LITA S Ot 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 ANGIOPLASTY IMPLANT 12/31/[address] [facility] Ot 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 01/20/2020 [facility] L[facility] S Ot J44.9 CHRONIC OBSTRUCTIVE PULMONARY DISEASE, U 01/21/[address] [facility] Ot J44.9 CHRONIC OBSTRUCTIVE PULMONARY DISEASE, U 02/04/2020 W J44.9 Manager Export rebecca obstructive pulmonary disease, unspecified Orender, Lita S. 02/04/2020 W J44.9 Manager Export rebecca obstructive pulmonary disease, unspecified Orender, Lita S. 02/25/2020 CHAN[facility] DO, CIERA K Ot E11.9 TYPE 2 DIABETES MELLITUS WITHOUT COMPLIC 02/25/2020 [facility]ANO DO, CIERA K Ot E78.00 PURE HYPERCHOLESTEROLEMIA, UNSPECIFIED 02/25/2020 [facility] DO, CIERA K Ot F41.9 ANXIETY DISORDER, UNSPECIFIED 02/25/2020 [facility]AN[facility] DO, CIERA K Ot G89.29 OTHER CHRONIC PAIN 02/25/2020 CHANO DO, CIERA K Ot I10 ESSENTIAL (PRIMARY) HYPERTENSION 02/25/2020 CHANO DO, CIERA K Ot I25.10 ATHSCL HEART DISEASE OF [place] CORONARY 02/25/2020 CHANO DO, CIERA K Ot I25.2 OLD MYOCARDIAL INFARCTION 02/25/2020 [facility]ANO DO, CIERA K Ot J44.9 CHRONIC OBSTRUCTIVE PULMONARY DISEASE, U 02/25/2020 [facility] DO, CIERA K Ot K21.9 GASTRO-ESOPHAGEAL REFLUX DISEASE WITHOUT 02/25/2020 [facility] DO, CIERA K Ot M19.91 PRIMARY OSTEOARTHRITIS, UNSPECIFIED SITE 02/25/2020 [facility] DO, CIERA K Ot M25.561 PAIN IN RIGHT KNEE 02/25/2020 [facility] DO, CIERA K Ot R06.02 SHORTNESS OF BREATH 02/25/2020 CIERA MADDEN DO Ot Z20.828 CONTACT W AND EXPOSURE TO OTH VIRAL COMM 02/25/2020 CHANO JOHNSONTANMAYA Narayan Ot Z79.4 SENIOR CARE (CURRENT) USE OF INSULIN 02/25/2020 [facility] TANMAYA Narayan Ot Z79.82 TESTER EQUIPMENT (CURRENT) USE OF ASPIRIN 02/25/2020 CHANO TANMAYA Narayan Ot Z79.899 OTHER TESTER EQUIPMENT (CURRENT) DRUG THERAPY 02/25/2020 [facility]O CIERA Narayan Ot Z85.828 PERSONAL HISTORY OF OTHER MALIGNANT NEOP 02/25/2020 [facility] CIERA Narayan Ot Z87.891 PERSONAL HISTORY OF NICOTINE DEPENDENCE 02/25/2020 CHANO TANMAYA Narayan Ot Z91.19 PATIENT'S NONCOMPLIANCE W OT MEDICAL TR 02/25/2020 CHANO JOHNSON CIERA Narayan Ot 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 ANGIOPLASTY IMPLANT 02/25/2020 [facility]ANO TANMAYA Narayan Ot 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 03/04/2020 W J44.9 Manager Export rebecca obstructive pulmonary disease, unspecified Orender Lita S. 03/04/2020 W J44.9 Manager Export rebecca obstructive pulmonary disease, unspecified OrenderJermainLita S. 03/16/2020 STEVAN PATTON DO Ot C44.622 SQUAMOUS CELL CARCINOMA SKIN/ RIGHT UPPE 03/16/2020 STEVAN PATTON DO Ot C44.629 SQUAMOUS CELL CARCINOMA SKIN/ LEFT UPPER 03/16/2020 STEVAN PATTON DO Ot D64. 9 ANEMIA, UNSPECIFIED 03/16/2020 STEVAN PATTON DO Ot E11. 9 TYPE 2 DIABETES MELLITUS WITHOUT COMPLIC 03/16/2020 STEVAN PATTON DO Ot E66. 9 OBESITY, UNSPECIFIED 03/16/2020 STEVAN PATTON DO Ot F41. 9 ANXIETY DISORDER, UNSPECIFIED 03/16/2020 STEVAN PATTON DO Ot G47. 33 OBSTRUCTIVE SLEEP APNEA (ADULT) (PEDIATR 03/16/2020 STEVAN PATTON DO Ot I11. 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 2 OLD MYOCARDIAL INFARCTION 03/16/2020 [facility] Ot I65. 23 OCCLUSION AND STENOSIS OF BILATERAL BAZZI 03/16/2020 [facility] J43. 9 EMPHYSEMA, UNSPECIFIED 03/16/2020 [facility] Ot K21. 9 GASTRO-ESOPHAGEAL REFLUX DISEASE WITHOUT 03/16/2020 [facility] Ot L57. 0 ACTINIC KERATOSIS 03/16/2020 [facility] Ot M06. 9 RHEUMATOID ARTHRITIS, UNSPECIFIED 03/16/2020 [facility] Z11. 2 ENCOUNTER FOR SCREENING FOR OTHER BACTER 03/16/2020 [facility] DOSTEVAN Ot Z68. 24 BODY MASS INDEX (BMI) 24.0-24.9, ADULT 03/16/2020 [facility] Z79. 51 SENIOR CARE (CURRENT) USE OF INHALED STERO 03/16/2020 [facility] Z79. 82 SENIOR CARE (CURRENT) USE OF ASPIRIN 03/16/2020 [facility] Z79. 84 SENIOR CARE (CURRENT) USE OF ORAL HYPOGLYC 03/16/2020 [facility] Z79.899 OTHER SENIOR CARE (CURRENT) DRUG THERAPY 03/16/2020 [facility] Z88. 5 ALLERGY STATUS TO NARCOTIC AGENT STATUS 03/16/2020 [facility] Z95. 5 PRESENCE OF CORONARY ANGIOPLASTY IMPLANT Procedures Code Description Performed By Ray huizar On [id number] MD ASURE OF CARDIAC SAMPL PRESSURE, L H 06/02/2016 [id number] FL UOROSCOPY OF MULT COR ART USING L OSM 06/02/2016 [id number] FL UOROSCOPY OF LEFT HEART USING LOW OSMO 06/02/2016 [id number] FL UOROSCOPY OF ABDOMINAL AORTA USING LOW [...] ABO+Rh group AP NRG Transfusion band number [id number] NRG Blood group antibody screen NEGATIVE NR [...] NRG Blood macrocytes detection by light microscopy [facility] NR Blood ovalocytes detection by light microscopy [facility] Comprehensive metabolic panel - 06/13/17 23:54 Serum [...] - 04/18/18 23:49 QUANTITY OF GROWTH . [facility] Bacterial blood culture SEE COMMEN [facility] Bacterial blood culture - 04/19/18 00:20 Bacterial blood culture NG G Serum or plasma lactate measurement (mol es/volume) [...] NRG Manual blood lymphocytes/100 leukocytes 2 % NR Manual eosinophils/100 leukocytes in nose 0 % [facility] Manual blood basophils/100 leukocytes 1 % [facility] Blood erythrocyte morphology finding identification NORMAL [facility] Comprehensive metabolic panel - [...] mg/dL 70-110 Automated blood complete blood count ( mogram) panel - 06/26/18 08:00 Blood leukocytes [...] troponin i.cardiac measu rement (mass/volume) - 03/24/19 06:30 Serum or plasma troponin i.cardiac measurement [...] 4 FREE TEXT EXTERNAL SUSCEPTIBILITY REPORTED 9, 9092. NRG QUANTITY OF GROWTH SMALL AMOUNT NRG [...] by minimum inhibitory concentration <= [facility] <= NRG Capillary blood glucose measurement [...] INFLUENZA A AND B ANTIGENS BY IA G Blood lactic acid measurement (moles/vol ume)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
--- NOTE | 2020-03-28 17:30 | NUR ---
DR. VICENTE INFORMED OF DVT RISK OF 4.
[2020-03-28 18:00] VITALS: BP 162/75
--- NOTE | 2020-03-28 18:00 | NUR ---
O2 PUT ON 5L PER NC WHILE EATING DINNER.
[2020-03-28] MEDS ORDERED: BISACODYL 10 MG SUPP (DULCOLAX) PR PRN (18:30)
[2020-03-28] MEDS ORDERED: polyethylene glycoL POWDER 17 GM (MIRALAX) PACK PO PRN (18:30)
[2020-03-28] MEDS ORDERED: ANTACID SUSP 30 ML UDC (MYLANTA) PO PRN (18:30)
[2020-03-28] MEDS ORDERED: ONDANSETRON 4 MG (ZOFRAN) ORAL DISSOLVE TAB PO PRN (18:30)
[2020-03-28] MEDS ORDERED: ENOXAPARIN 40 MG/0.4 ML (LOVENOX) SYR SC SCH (18:30)
[2020-03-28] MEDS ORDERED: MELATONIN 3 MG TABLET PO PRN (18:30)
[2020-03-28] MEDS ORDERED: rOPINIRole 5 MG TAB (REQUIP) PO PRN (18:30)
[2020-03-28] MEDS ORDERED: ONDANSETRON 4 MG/2 ML (SDV) Z0FRAN IV PRN (18:30)
[2020-03-28 20:57] VITALS: BP 169/73
[2020-03-28] MEDS: ENOXAPARIN 40 MG/0.4 ML (LOVENOX) SYR SC SCH (21:12)
[2020-03-28] MEDS: SINEMET CR 50/200 (CARBIDOPA/LEVODOPA SA) TAB PO SCH (21:12)
[2020-03-28] MEDS: SENNOSIDES 8.6 MG (SENOKOT) TAB PO SCH (21:12)
[2020-03-28] MEDS: DOCUSATE SODIUM 100 MG (COLACE) CAP PO SCH (21:12)
[2020-03-28] MEDS: ACETAMINOPHEN 325 MG TABLET PO PRN (21:12)
[2020-03-28] MEDS: inSUlin ASPART (NovoLOG) 1 UNIT/0.01 ML (CHARGE PER UNIT) SC SCH (21:13)
[2020-03-28] MEDS: RT-ALBUTEROL/IPRATROPIUM 3 ML (DUONEB) VIAL INH SCH (21:41)
[2020-03-28 23:45] VITALS: BP 172/73
[2020-03-29] MEDS: methylPREDNISolone 40 MG/ML (Solu-MEDROL) VIAL IV SCH ×2 (00:19→05:32)
[2020-03-29] MEDS: RT-ALBUTEROL/IPRATROPIUM 3 ML (DUONEB) VIAL INH SCH ×3 (02:24→10:48)
[2020-03-29 04:45] VITALS: BP 155/71
[2020-03-29] MEDS: inSUlin ASPART (NovoLOG) 1 UNIT/0.01 ML (CHARGE PER UNIT) SC SCH ×4 (05:31→20:28)
[2020-03-29 06:08] LABS: BASOPHILS % (AUTO) 0 % (0-10); EOSINOPHILS % (AUTO) 0 % (0-10); HEMATOCRIT 38 % (40-54); HEMOGLOBIN 12.6 G/DL (13.3-17.7); LYMPHOCYTES # (AUTO) 0.2 X 10^3 (1.0-4.0); LYMPHOCYTES % (AUTO) 3 % (12-44); MEAN CORPUSCULAR HEMOGLOBIN 31 PG (25-34); MEAN CORPUSCULAR HGB CONC 33 G/DL (32-36); MEAN CORPUSCULAR VOLUME 92 FL (80-99); MEAN PLATELET VOLUME 10.2 FL (7.4-10.4); MONOCYTES # (AUTO) 0.2 X 10^3 (0.0-1.0); MONOCYTES % (AUTO) 2 % (0-12); NEUTROPHILS # (AUTO) 7.9 X 10^3 (1.8-7.8); NEUTROPHILS % (AUTO) 95 % (42-75); PLATELET COUNT 163 10^3/uL (130-400); RED CELL DISTRIBUTION WIDTH 13.6 % (10.0-14.5); WHITE BLOOD COUNT 8.3 10^3/uL (4.3-11.0)
[2020-03-29 06:23] LABS: ALBUMIN 4.3 GM/DL (3.2-4.5); CHLORIDE 102 MMOL/L (98-107); POTASSIUM 4.6 MMOL/L (3.6-5.0); SODIUM 137 MMOL/L (135-145)
[2020-03-29 06:24] LABS: CALCIUM 9.5 MG/DL (8.5-10.1)
[2020-03-29 06:25] LABS: GLUCOSE 154 MG/DL (70-105)
[2020-03-29 06:26] LABS: CARBON DIOXIDE 23 MMOL/L (21-32)
[2020-03-29 06:27] LABS: BILIRUBIN,TOTAL 0.4 MG/DL (0.1-1.0)
[2020-03-29 06:29] LABS: ALKALINE PHOSPHATASE 54 U/L (40-136); CREATININE SERUM 0.97 MG/DL (0.60-1.30); GFR ESTIMATED > 60
[2020-03-29 06:30] LABS: BUN/CREATININE RATIO 24
[2020-03-29 06:32] LABS: ALANINE AMINOTRANSFERASE < 6 U/L (0-55)
[2020-03-29 06:38] LABS: ATYPICAL LYMPHOCYTES 1 %; BAND NEUTROPHILS 11 %; LYMPHOCYTES % (MANUAL) 3 %; MONOCYTES % (MANUAL) 3 %; NEUTROPHILS % (MANUAL) 82 %; RBC MORPH NORMAL
[2020-03-29] MEDS ORDERED: predniSONE 20 MG TAB PO SCH (07:00)
[2020-03-29 08:23] VITALS: BP 145/74
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
[2020-03-29] MEDS ORDERED: IPRA4AER PO (08:54)
[2020-03-29] MEDS ORDERED: PRD10T PO (08:54)
[2020-03-29] MEDS ORDERED: AZIT250T12 PO (08:54)
[2020-03-29] MEDS ORDERED: DOXY25TA56 PO (08:55)
--- NOTE | 2020-03-29 09:49 | NUR ---
SPOKE WITH THE PT (AND HIS ) TO COMPLETE THE MED REC. THEY HAD A MED LIST THAT HAS A DATE OF Jul BUT MOST MEDS HAVE BEEN DISCONTINUED OR CHANGED- FOR THAT REASON THE PT AND I DID NOT RELY ON THAT TO COMPLETE THE MED REC. OTC MEDS: ASPIRIN UNISON TYLENOL
[2020-03-29] MEDS: ASPIRIN 81 MG CHEW (CHILDREN'S ASA) PO SCH (10:08)
[2020-03-29] MEDS: LOSARTAN 100 MG (COZAAR) TABLET PO SCH (10:08)
[2020-03-29] MEDS: SINEMET CR 50/200 (CARBIDOPA/LEVODOPA SA) TAB PO SCH ×3 (10:09→20:30)
[2020-03-29] MEDS: PANTOPRAZOLE 40 MG (PROTONIX) TAB PO SCH (10:09)
[2020-03-29] MEDS: DOCUSATE SODIUM 100 MG (COLACE) CAP PO SCH ×2 (10:09→20:26)
[2020-03-29] MEDS: SENNOSIDES 8.6 MG (SENOKOT) TAB PO SCH ×2 (10:09→20:26)
[2020-03-29] MEDS: ADVAIR HFA 115/21 MCG INHALER 8 GM IH SCH ×2 (10:50→19:00)
[2020-03-29 11:30] VITALS: BP 157/72
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
--- NOTE | 2020-03-29 14:41 | NUR ---
MOVED TO ROOM 424 PER ISOLATION PROTOCOL.
[2020-03-29] MEDS: predniSONE 20 MG TAB PO SCH (14:54)
[2020-03-29] MEDS: ALBUTEROL/IPRATROP (COMBIVENT RESPIMAT) 4 GM INHALER IH SCH ×3 (15:04→21:10)
[2020-03-29 16:00] VITALS: BP 176/82
--- NOTE | 2020-03-29 18:28 | History & Physical ---
History of Present Illness History of Present Illness Reason for visit/HPI This is a 79 year old male with a history of severe oxygen dependant COPD and chronic respiratory failure. He has a history of noncompliance with his oxygen and inhalers as he does not like to stay home so he misses nebulizer treatments and his oxygen will run out when he is out and about. He presented with worsening shortness of air. He was found to be in an acute COPD exacerbation and had to be placed on BIPAP and given IV solumedrol. He will be admitted to the medical floor for further treatment. Date of Admission Mar 28, 2020 at 16:20 Date Seen by a Provider: Mar 29, 2020 Time Seen by a Provider: 12:20 I consulted on this patient on 03/29/20 18:21 Attending Physician Lita Jackman DO Admitting Physician Lita Jackman DO Consult Allergies and Home Medications Allergies Coded Allergies: hydrocodone (Verified Allergy, Mild, NAUSEA, 07/25/19) oxycodone (Verified Allergy, Mild, NAUSEA, 07/25/19) Home Medications Acetaminophen 500 Mg Tablet, 1,000 MG PO Q8H PRN for PAIN-MILD (1-4), (Reported) Albuterol/Ipratropium 4 Gm Aero, 1 PUFF PO DAILY, (Reported) Aspirin 81 Mg Tablet.dr, 81 MG PO DAILY, (Reported) Azithromycin 250 Mg Tablet, 250 MG PO DAILY, (Reported) Budesonide/Formoterol Fumarate 10.2 Gm Hfa.aer.ad, 2 PUFF IH BID, (Reported) Carbidopa/Levodopa 1 Each Tablet.er, 1 TAB PO TID, (Reported) Doxylamine Succinate 25 Mg Tablet, 25-50 MG PO HS PRN for SLEEP, (Reported) Hydrocodone Bit/Acetaminophen 1 Each Tablet, 1 EA PO Q4H PRN for PAIN-MODERATE (5-7), (Reported) Insulin Detemir 100 Unit/1 Ml Insuln.pen, 20 UNITS SC HS, (Reported) Ipratropium/Albuterol Sulfate 3 Ml Ampul.neb, 3 ML NEB Q4H PRN for SHORTNESS OF BREATH, (Reported) Losartan Potassium 100 Mg Tablet, 100 MG PO DAILY, (Reported) Pantoprazole Sodium 40 Mg Tablet.dr, 40 MG PO DAILY, (Reported) Prednisone 10 Mg Tab, PO UD, (Reported) TAKE 4 TABS DAILY X 5 DAYS THEN 2 TABS DAILY X 5 DAYS THEN 1 TAB DAILY Ropinirole HCl 4 Mg Tablet, 12 MG PO HS PRN for RESTLESS LEGS, (Reported) TAKES 3 (4MG) TABLETS Patient Home Medication List Home Medication List Reviewed: Yes Past Rbqepxo-Scdoid-Wjyork Hx Past Med/Social Hx: Reviewed Nursing Past Med/Soc Hx Patient Social History Marrital Status: Alcohol Use: Occasionally Uses Number of Drinks Today: 0 Alcohol Beverage of Choice: Beer Recreational Drug Use: No Smoking Status: Former Smoker Former Smoker, Quit: May 25, 1996 Type Used: Cigars, Cigarettes 2nd Hand Smoke Exposure: Yes Physical Abuse Screen: No Sexual Abuse: No Recent Foreign Travel: No Contact w/other who traveled: No Recent Hopitalizations: Yes (2 MONTHS AGO - COPD) Recent Infectious Disease Expo: No Immunizations Up To Date Tetanus Booster (TDap): Unknown Pediatric: No Date of Pneumonia Vaccine: Sep 25, 2018 Date of Influenza Vaccine: Sep 25, 2018 Seasonal Allergies Seasonal Allergies: No Past Medical History Surgeries: Cardiac, Coronary Stent, Eye Surgery, Orthopedic Respiratory: COPD, Pneumonia Currently Using CPAP: Yes Currently Using BIPAP: No Cardiac: Coronary Artery Disease, Heart Attack, High Cholesterol, Hypertension Neurological: Parkinson's Disease Reproductive: No Sexually Transmitted Disease: No HIV/AIDS: No Gastrointestinal: Gastroesophageal Reflux Musculoskeletal: Arthritis, Fractures Endocrine: Diabetes, Insulin dep Are Your Blood Sugars Over 250: No HEENT: Cataract Loss of Vision: Bilateral Hearing Impairment: Hard of Hearing Cancer: Skin Did You Recieve Any Treatments: Yes What Type of Treatment Did You: Surgical Intervention Psychosocial: Anxiety Skin/Integumentary: Eczema History of Blood Disorders: No Adverse Reaction to Blood Starr: No Family History Cancer 09 BROTHER Cancer of colon 09 BROTHER Cataract 03 MOTHER Chest pain 03 MOTHER Congenital heart disease 03 FATHER Congestive heart failure 03 FATHER Family history: Cardiovascular disease 03 FATHER 03 MOTHER Family history: Diabetes mellitus 03 FATHER Family history: Gastrointestinal disease 03 MOTHER Family history: Hypertension 03 MOTHER Hearing loss 03 FATHER Heart disease 03 FATHER History of - respiratory disease 03 FATHER Kidney disease 03 FATHER Myocardial infarction 03 FATHER Stroke 03 FATHER No Family History of: Abdominal aortic aneurysm Jae's disease Alcoholism Aphasia Cystic fibrosis Dementia Dysphagia Family history: Allergy Family history: Alzheimer's disease Family history: Arthritis Family history: Asthma Family history: Breast disease Family history: Coronary thrombosis Family history: Glaucoma Family history: Osteoporosis Family history: Thyroid disorder Headache Hereditary disease History of - anemia History of - disorder History of drug abuse Human immunodeficiency virus (HIV) seropositivity Hypercholesterolemia Infertile Malignant neoplasm of lung Parkinson's disease Prostate cancer Psychotic disorder Seizure disorder Tuberculosis Visual impairment Review of Systems Constitutional: weakness EENTM: No see HPI, No no symptoms reported, No ear discharge, No hearing loss, No ear pain, No blurred vision, No double vision, No eye pain, No tearing, No vision loss, No dental problems, No hoarseness, No mouth pain, No mouth swelling, No epistaxis, No nose congestion, No nose pain, No throat pain, No throat swelling, No other Respiratory: cough, dyspnea on exertion, orthopnea, short of breath Cardiovascular: No no symptoms reported, No see HPI, No chest pain, No edema, No Hx of Intervention, No palpitations, No syncope, No vascular heart diseas, No other Gastrointestinal: No RUQ, No LUQ, No RLQ, No LLQ, No no symptoms reported, No see HPI, No abdominal pain, No constipation, No diarrhea, No dysphagia, No hematemesis, No heartburn, No jaundice, No loss of appetite, No melena, No nausea, No vomiting, No other Genitourinary: No no symptoms reported, No see HPI, No decreased output, No discharge, No dysuria, No frequency, No hematuria, No hesitancy, No incontinence, No nocturia, No pain, No other Musculoskeletal: muscle weakness Skin: No no symptoms reported, No see HPI, No change in color, No change in hair/nails, No dryness, No hx of skin cancer, No lesions, No lumps, No pruritus, No rash, No other Psychiatric/Neurological: Anxiety, Weakness Physical Exam Vital Signs Vital Signs - First Documented 03/28/20 15:30 Temp 36.6 Pulse 76 Resp 28 B/P (MAP) 156/78 (104) Pulse Ox 88 O2 Delivery Nasal Cannula O2 Flow Rate 5.00 Capillary Refill : Less Than 3 SecondsLess Than 3 Seconds Height, Weight, BMI Height: 6'0.00" Weight: 204lbs. 9.0oz. 92.374192rc; 26.75 BMI Method:Stated General Appearance: Mild Distress HEENT: Normal ENT Inspection Neck: Supple Respiratory: Decreased Breath Sounds, Respiratory Distress, Rhonci, Wheezing Cardiovascular: Regular Rate, Rhythm, Systolic Murmur Gastrointestinal: Normal Bowel Sounds, Non Tender, Soft Rectal: Deferred Back: No CVA Tenderness Extremity: Non Tender, No Calf Tenderness, No Pedal Edema Neurologic/Psychiatric: Alert, Oriented x3 Skin: Warm/Dry Comments Laboratory Tests 03/28/20 20:30: Glucometer 204H 03/29/20 05:31: Glucometer 166H 03/29/20 05:40: White Blood Count 8.3, Red Blood Count 4.11L, Hemoglobin 12.6L, Hematocrit 38L, Mean Corpuscular Volume 92, Mean Corpuscular Hemoglobin 31, Mean Corpuscular Hemoglobin Concent 33, Red Cell Distribution Width 13.6, Platelet Count 163, Mean Platelet Volume 10.2, Neutrophils (%) (Auto) 95H, Lymphocytes (%) (Auto) 3L , Monocytes (%) (Auto) 2, Eosinophils (%) (Auto) 0, Basophils (%) (Auto) 0, Neutrophils # (Auto) 7.9H, Lymphocytes # (Auto) 0.2L, Monocytes # (Auto) 0.2, Eosinophils # (Auto) 0.0, Basophils # (Auto) 0.0, Neutrophils % (Manual) 82, Lymphocytes % (Manual) 3, Monocytes % (Manual) 3, Band Neutrophils 11, Atypical Lymphocytes 1, Blood Morphology Comment NORMAL, Sodium Level 137, Potassium Level 4.6, Chloride Level 102, Carbon Dioxide Level 23, Anion Gap 12, Blood Urea Nitrogen 23H, Creatinine 0.97, Estimat Glomerular Filtration Rate > 60, BUN/Creatinine Ratio 24, Glucose Level 154H, Calcium Level 9.5, Corrected Calcium 9.3, Total Bilirubin 0.4, Aspartate Amino Transf (AST/SGOT) 13, Alanine Aminotransferase (ALT/SGPT) < 6, Alkaline Phosphatase 54, Total Protein 7.0, Albumin 4.3 03/29/20 11:32: Glucometer 188H 03/29/20 14:50: Coronavirus (COVID-19)(PCR) [Pending] 03/29/20 17:55: Glucometer 146H Microbiology 03/28/20 Blood Culture - Preliminary, Resulted No growth Assessment/Plan Assessment and Plan 1. Acute on Chronic Respiratory Failure--admitted on BIPAP 2. Acute Exacerbation of COPD--IV solumedrol, SVNS with duoneb 3. Hypertension--resume home meds 4. Diabetes mellitus--insulin requiring, start accuchecks with SSI 5. History of CAD--stable 6. Exposure to Positive COVID patient--place in isolation and check COVID swab Admission Diagnosis Admission Status: Inpatient Order (span 2 midnights) Reason for Inpatient Admission: Will need BIPAP and IV steroids Clinical Quality Measures DVT/VTE Risk/Contraindication: Risk Factor Score Per Nursin RFS Level Per Nursing on Admit: 4+=Very High LITA JACKMAN DO Mar 29, 2020 18:28
[2020-03-29] MEDS: ENOXAPARIN 40 MG/0.4 ML (LOVENOX) SYR SC SCH (20:28)
[2020-03-29 20:35] VITALS: BP 159/70
[2020-03-29 23:03] VITALS: BP 156/67
[2020-03-29] MEDS: ACETAMINOPHEN 325 MG TABLET PO PRN (23:03)
[2020-03-30] MEDS: ALBUTEROL/IPRATROP (COMBIVENT RESPIMAT) 4 GM INHALER IH SCH ×3 (02:15→10:33)
[2020-03-30 04:15] VITALS: BP 145/76
[2020-03-30] MEDS: inSUlin ASPART (NovoLOG) 1 UNIT/0.01 ML (CHARGE PER UNIT) SC SCH ×2 (06:50→11:50)
--- NOTE | 2020-03-30 07:42 | NUR ---
Pt's COVID-[address] Barakat and powerhouse attendant notified.
[2020-03-30] MEDS: SINEMET CR 50/200 (CARBIDOPA/LEVODOPA SA) TAB PO SCH ×2 (08:45→11:53)
[2020-03-30] MEDS: DOCUSATE SODIUM 100 MG (COLACE) CAP PO SCH (08:46)
[2020-03-30] MEDS: PANTOPRAZOLE 40 MG (PROTONIX) TAB PO SCH (08:46)
[2020-03-30] MEDS: SENNOSIDES 8.6 MG (SENOKOT) TAB PO SCH (08:46)
[2020-03-30] MEDS: LOSARTAN 100 MG (COZAAR) TABLET PO SCH (08:46)
[2020-03-30] MEDS: ASPIRIN 81 MG CHEW (CHILDREN'S ASA) PO SCH (08:46)
[2020-03-30 08:50] VITALS: BP 152/72
[2020-03-30] MEDS: ADVAIR HFA 115/21 MCG INHALER 8 GM IH SCH (10:33)
[2020-03-30] MEDS: predniSONE 20 MG TAB PO SCH (11:53)
--- NOTE | 2020-03-30 13:06 | NUR ---
pt refused his 1200 vitals.
[2020-03-30] MEDS ORDERED: PRD20T PO (13:22)
--- NOTE | 2020-03-31 14:56 | Physician Query-Final Dx ---
Final Diagnosis Give Final Diagnosis Please give Final Diagnosis SISI PARKINSON Mar 31, 2020 14:55
== END 2020-03-30 14:25 | disposition home or self-care (01) ==
LOC: EDUNIT# 15:28 → ER 15:30 → 4TH 16:20
PROVIDERS: ADMIT Internal Medicine; ATTEND Family Medicine
DX: J44.1 Chronic obstructive pulmonary disease with (acute) exacerbation (principal); J96.10 Chronic respiratory failure, unspecified whether with hypoxia or hypercapnia; Z87.891 Personal history of nicotine dependence; I10 Essential (primary) hypertension; I25.10 Atherosclerotic heart disease of native coronary artery without angina pectoris; E11.9 Type 2 diabetes mellitus without complications; F41.9 Anxiety disorder, unspecified; E78.00 Pure hypercholesterolemia, unspecified; G20 Parkinson's disease; K21.9 Gastro-esophageal reflux disease without esophagitis; M19.90 Unspecified osteoarthritis, unspecified site; I25.2 Old myocardial infarction; G89.29 Other chronic pain; M25.561 Pain in right knee; Z79.82 Long term (current) use of aspirin; Z79.51 Long term (current) use of inhaled steroids; Z79.4 Long term (current) use of insulin; Z79.899 Other long term (current) drug therapy; Z88.5 Allergy status to narcotic agent; Z95.5 Presence of coronary angioplasty implant and graft; Z85.828 Personal history of other malignant neoplasm of skin; Z84.1 Family history of disorders of kidney and ureter; Z82.3 Family history of stroke; Z80.0 Family history of malignant neoplasm of digestive organs
CPT/HCPCS: 71045; 71046; 80053 ×2; 82805; 82962 ×3; 83605; 83735; 84484; 85007; 85025; 85027; 85610; 85730; 87040; 93005; 94640 ×5; 94660 ×2; 94664; 94760; 99285; G0378; U0002; 36415; 87635

== ENCOUNTER → 2020-10-25 | Outpatient (CLI) | payer MEDICARE, OTHER ==
[~2020-10-25] MED LIST changes: -ACET-2715 PO; +ACET-3075 PO; +AMLO-250 PO; -AMLO5TAB9 PO; +ASCO250T16 PO; +DOXY25TA56 PO; +IPRA4AER PO; -MECL-172 PO; +MECL-173 PO; -PANT40TA3 PO; +PANT40TA52 PO
== END ==
LOC: LABNPT 13:55
PROVIDERS: ATTEND Nurse Practitioner Family
DX: Z20.822 Contact with and (suspected) exposure to COVID-19 (principal)
CPT/HCPCS: 87635

== ENCOUNTER 2021-03-27 15:10 | Inpatient (IN) | payer MEDICARE ==
[~2021-03-27] VITALS: Ht 182 cm; Wt 75.0 kg
[~2021-03-27 15:10] MED LIST changes: +DICL100G13 TOP; -DICL100G31 TOP; -ISM60TCR PO; -ISOS30TA3 PO; +ISOS30TA82 PO; +ISOS60TA63 PO; -MECL-173 PO; +MECL-215 PO; -OXYC-471 PO; +OXYC1TAB11 PO; +QUET50TA22; -QUET50TA55; +SERT-414 PO; -SERT100T8 PO
[2021-03-27] MEDS ORDERED: RT-ALBUTEROL/IPRATROPIUM 3 ML (DUONEB) VIAL INH ONE (15:45)
[2021-03-27 15:46] LABS: BASOPHILS # (AUTO) 0.1 10^3/uL (0.0-0.1); BASOPHILS % (AUTO) 1 % (0-10); EOSINOPHILS # (AUTO) 0.2 10^3/uL (0.0-0.3); EOSINOPHILS % (AUTO) 2 % (0-10); HEMATOCRIT 34 % (40-54); HEMOGLOBIN 10.7 g/dL (13.3-17.7); LYMPHOCYTES # (AUTO) 1.1 10^3/uL (1.0-4.0); LYMPHOCYTES % (AUTO) 12 % (12-44); MEAN CORPUSCULAR HEMOGLOBIN 30 pg (25-34); MEAN CORPUSCULAR HGB CONC 32 g/dL (32-36); MEAN CORPUSCULAR VOLUME 94 fL (80-99); MEAN PLATELET VOLUME 9.8 fL (9.0-12.2); MONOCYTES # (AUTO) 0.8 10^3/uL (0.0-1.0); MONOCYTES % (AUTO) 9 % (0-12); NEUTROPHILS # (AUTO) 6.8 10^3/uL (1.8-7.8); NEUTROPHILS % (AUTO) 73 % (42-75); PLATELET COUNT 264 10^3/uL (130-400); WHITE BLOOD COUNT 9.3 10^3/uL (4.3-11.0)
[2021-03-27 15:47] LABS: ABG BASE EXCESS -1.7 MMOL/L (-2.5-2.5); ABG OXYGEN SATURATION 92 % (94-100); ABG PCO2 40 MMHG (35-45); ABG PH 7.38 (7.37-7.43); ABG PO2 61 MMHG (79-93); ABG TCO2 24.4 MMOL/L (21.0-31.0)
[2021-03-27 15:48] LABS: ALLENS TEST YES-POS; VENTILATOR NO
[2021-03-27 15:49] LABS: PATIENT TEMP 98.2
[2021-03-27 16:03] LABS: ALBUMIN 4.1 GM/DL (3.2-4.5); POTASSIUM 4.1 MMOL/L (3.6-5.0)
[2021-03-27 16:04] LABS: CALCIUM 9.8 MG/DL (8.5-10.1)
[2021-03-27 16:05] LABS: TOTAL PROTEIN 7.4 GM/DL (6.4-8.2)
[2021-03-27 16:07] LABS: BILIRUBIN,TOTAL 0.4 MG/DL (0.1-1.0)
--- NOTE | 2021-03-27 16:08 | ED Cough/URI ---
General Chief Complaint: Respiratory Problems Stated Complaint: SOB Nursing Triage Note: PT WAS BROUGHT TO ED BY SON FOR SHORTNESS OF BREATH. PER SON PT'S COPD FLAIRED UP YESTERDAY DUE TO THE HEAT, BUT PT SEEMED BETTER LAST NIGHT. TODAY PT CALLED SON AND THE ONLY THING PT WAS ABLE TO VERBALIZE WAS THAT HE NEEDED TO GO TO THE HOSPITAL. PT WAS BROUGHT TO ROOM 10 VIA WC. Source: patient Exam Limitations: no limitations History of Present Illness Date Seen by Provider: Mar 27, 2021 Time Seen by Provider: 16:04 Initial Comments To ER with shortness of breath getting worse over the past week. He has oxygen dependent COPD. He also has a nodule to the right cheek that is ulcerated and for this he follows with the cancer center. Timing/Duration: week, getting worse Severity/Quality: moderate Associated Symptoms: denies symptoms Allergies and Home Medications Allergies Coded Allergies: hydrocodone (Verified Allergy, Mild, NAUSEA, 07/25/19) oxycodone (Verified Allergy, Mild, NAUSEA, 07/25/19) Home Medications Albuterol/Ipratropium 4 Gm Aero, 1 PUFF PO DAILY, (Reported) Aspirin 81 Mg Tablet.dr, 81 MG PO DAILY, (Reported) Budesonide/Formoterol Fumarate 10.2 Gm Hfa.aer.ad, 2 PUFF IH BID, (Reported) Carbidopa/Levodopa 1 Each Tablet.er, 1 TAB PO TID, (Reported) Hydrocodone Bit/Acetaminophen 1 Each Tablet, 1 EA PO Q4H PRN for PAIN-MODERATE (5-7), (Reported) Insulin Detemir 100 Unit/1 Ml Insuln.pen, 20 UNITS SC HS, (Reported) Ipratropium/Albuterol Sulfate 3 Ml Ampul.neb, 3 ML NEB Q4H PRN for SHORTNESS OF BREATH, (Reported) Losartan Potassium 100 Mg Tablet, 100 MG PO DAILY, (Reported) Pantoprazole Sodium 40 Mg Tablet.dr, 40 MG PO DAILY, (Reported) Prednisone 20 Mg Tab, 40 MG PO DAILY@1200 or 3 days then 20mg daily for 4 days Prescribed by: YVETTE BARAKAT on 03/30/20 1322 Ropinirole HCl 4 Mg Tablet, 12 MG PO HS PRN for RESTLESS LEGS, (Reported) TAKES 3 (4MG) TABLETS Patient Home Medication List Home Medication List Reviewed: Yes Review of Systems Review of Systems Constitutional: see HPI EENTM: see HPI Respiratory: no symptoms reported Cardiovascular: no symptoms reported Genitourinary: no symptoms reported Musculoskeletal: no symptoms reported Skin: no symptoms reported Psychiatric/Neurological: No Symptoms Reported Hematologic/Lymphatic: No Symptoms Reported Immunological/Allergic: no symptoms reported Past Pygnauk-[place]cb[place]-Rbjhfr Hx Patient Social History Tobacco Use?: No Smoking Status: Former Smoker Substance use?: No Alcohol Use?: Yes Alcohol type: Beer Alcohol Frequency: Rarely Pt feels they are or have been: No Immunizations Up To Date Tetanus Booster (TDap): Unknown PED Vaccines UTD: No First/Initial COVID19 Vaccinat: 12/12 Second COVID19 Vaccination James: 12/12 COVID19 Vaccine Rn Labor Delivery: Vringo Seasonal Allergies Seasonal Allergies: No Past Medical History Surgeries: Yes (CATARACTS;R KNEE SCOPE; SKIN CANCERS REMOVED;CARDIAC CATHS- STENTS X 5) Cardiac, Coronary Stent, Eye Surgery, Orthopedic Respiratory: Yes (O2 AT 5L AT HOME) Sleep Apnea, COPD Currently Using CPAP: Yes Currently Using BIPAP: No Cardiac: Yes (CARDIAC CATHS-STENTS X 5) Coronary Artery Disease, Heart Attack, High Cholesterol, Hypertension Neurological: No Parkinson's Disease Reproductive Disorders: No Sexually Transmitted Disease: No HIV/AIDS: No Genitourinary: No Gastrointestinal: Yes Gastroesophageal Reflux Musculoskeletal: Yes (CHRONIC RIGHT KNEE PAIN ; RIGHT KNEE SCOPE) Arthritis, Fractures Endocrine: Yes Diabetes, Insulin dep HEENT: Yes (BILATERAL CATARACT SURGERY; TEETH REMOVED) Cataract Loss of Vision: Bilateral Hearing Impairment: Hard of Hearing Cancer: Yes Skin Did You Recieve Any Treatments: Yes What Type of Treatment Did You: Surgical Intervention Psychosocial: Yes Anxiety Integumentary: Yes (ACTINIC KERATOSIS, SKIN CANCER) Eczema Blood Disorders: No Adverse Reaction/Blood Tranf: No Family Medical History Cancer 09 BROTHER Cancer of colon 09 BROTHER Cataract 03 MOTHER Chest pain 03 MOTHER Congenital heart disease 03 FATHER Congestive heart failure 03 FATHER Family history: Cardiovascular disease 03 FATHER 03 MOTHER Family history: Diabetes mellitus 03 FATHER Family history: Gastrointestinal disease 03 MOTHER Family history: Hypertension 03 MOTHER Hearing loss 03 FATHER Heart disease 03 FATHER History of - respiratory disease 03 FATHER Kidney disease 03 FATHER Myocardial infarction 03 FATHER Stroke 03 FATHER No Family History of: Abdominal aortic aneurysm Hanover's disease Alcoholism Aphasia Cystic fibrosis Dementia Dysphagia Family history: Allergy Family history: Alzheimer's disease Family history: Arthritis Family history: Asthma Family history: Breast disease Family history: Coronary thrombosis Family history: Glaucoma Family history: Osteoporosis Family history: Thyroid disorder Headache Hereditary disease History of - anemia History of - disorder History of drug abuse Human immunodeficiency virus (HIV) seropositivity Hypercholesterolemia Infertile Malignant neoplasm of lung Parkinson's disease Prostate cancer Psychotic disorder Seizure disorder Tuberculosis Visual impairment Physical Exam Vital Signs - First Documented 03/27/21 03/27/21 15:20 15:30 Pulse 92 Resp 23 B/P (MAP) 102/51 (68) Pulse Ox 80 O2 Delivery Simple Mask O2 Flow Rate 10.00 FiO2 70 Capillary Refill : Height: 6'0.00" Weight: 204lbs. 9.0oz. 92.966145qj; 26.75 BMI Method:Stated General Appearance: WD/WN, moderate distress (Accessory muscle use, 79% on his baseline 5 L.) Eyes: Bilateral Eye Normal Inspection, Bilateral Eye PERRL, Bilateral Eye EOMI HEENT: other ( ulcerated erythematous firm nodule to the right cheek about quarter sized) Neck: non-tender, full range of motion Respiratory: no respiratory distress, no accessory muscle use, decreased breath sounds, other (Accessory muscle use. Decreased air sounds. Started him on BiPAP initially at 12/5 35% FiO2, titrated up to 15/8 50% FiO2 in order to get SPO2 above 90%. Currently at this setting he is at 95% with a blood pressure of 114/58, respiratory rate of 22, heart rate of 92. This is atrial fibrillation.) Cardiovascular: regular rate, rhythm, no murmur Extremities: normal range of motion, non-tender Neurologic/Psychiatric: alert, normal mood/affect, oriented x 3 Skin: normal color, warm/dry Progress/Results/Core Measures Suspected Sepsis SIRS Temperature: Pulse: 117 Respiratory Rate: 23 Laboratory Tests 03/27/21 15:25: White Blood Count 9.3 Blood Pressure / Mean: Laboratory Tests 03/27/21 15:25: Creatinine 1.19, Platelet Count 264, Total Bilirubin 0.4 Results/Orders Lab Results Laboratory Tests Test 03/27/21 15:25 03/27/21 15:30 03/27/21 15:40 Range/Units White Blood Count 9.3 4.3-11.0 10^3/uL Red Blood Count 3.59 L 4.30-5.52 10^6/uL Hemoglobin 10.7 L 13.3-17.7 g/dL Hematocrit 34 L 40-54 % Mean Corpuscular Volume 94 80-99 fL Mean Corpuscular Hemoglobin 30 25-34 pg Mean Corpuscular Hemoglobin Concent 32 32-36 g/dL Red Cell Distribution Width 14.6 H 10.0-14.5 % Platelet Count 264 130-400 10^3/uL Mean Platelet Volume 9.8 9.0-12.2 fL Immature Granulocyte % (Auto) 3 % Neutrophils (%) (Auto) 73 42-75 % Lymphocytes (%) (Auto) 12 12-44 % Monocytes (%) (Auto) 9 0-12 % Eosinophils (%) (Auto) 2 0-10 % Basophils (%) (Auto) 1 0-10 % Neutrophils # (Auto) 6.8 1.8-7.8 10^3/uL Lymphocytes # (Auto) 1.1 1.0-4.0 10^3/uL Monocytes # (Auto) 0.8 0.0-1.0 10^3/uL Eosinophils # (Auto) 0.2 0.0-0.3 10^3/uL Basophils # (Auto) 0.1 0.0-0.1 10^3/uL Immature Granulocyte # (Auto) 0.2 H 0.0-0.1 10^3/uL Sodium Level 139 135-145 MMOL/L Potassium Level 4.1 3.6-5.0 MMOL/L Chloride Level 100 98-107 MMOL/L Carbon Dioxide Level 23 21-32 MMOL/L Anion Gap 16 H 5-14 MMOL/L Blood Urea Nitrogen 19 H 7-18 MG/DL Creatinine 1.19 0.60-1.30 MG/DL Estimat Glomerular Filtration Rate 59 BUN/Creatinine Ratio 16 Glucose Level 186 H 70-105 MG/DL Calcium Level 9.8 8.5-10.1 MG/DL Corrected Calcium 9.7 8.5-10.1 MG/DL Total Bilirubin 0.4 0.1-1.0 MG/DL Aspartate Amino Transf (AST/SGOT) 11 5-34 U/L Alanine Aminotransferase (ALT/SGPT) 6 0-55 U/L Alkaline Phosphatase 58 40-136 U/L C-Reactive Protein High Sensitivity 15.01 H 0.00-0.50 MG/DL B-Type Natriuretic Peptide 74.0 <100.0 PG/ML Total Protein 7.4 6.4-8.2 GM/DL Albumin 4.1 3.2-4.5 GM/DL Procalcitonin 0.22 H <0.10 NG/ML Influenza Type A (RT-PCR) Not Detected Not Detecte Influenza Type B (RT-PCR) Not Detected Not Detecte SARS-CoV-2 RNA (RT-PCR) Not Detected Not Detecte Blood Gas Puncture Site RT RAD Blood Gas Patient Temperature 98.2 Arterial Blood pH 7.38 7.37-7.43 Arterial Blood Partial Pressure CO2 40 35-45 MMHG Arterial Blood Partial Pressure O2 61 L 79-93 MMHG Arterial Blood HCO3 23 23-27 MMOL/L Arterial Blood Total CO2 24.4 21.0-31.0 MMOL/L Arterial Blood Oxygen Saturation 92 L 94-100 % Arterial Blood Base Excess -1.7 -2.5-2.5 MMOL/L Ahsan Test YES-POS Blood Gas Ventilator Setting NO Blood Gas Inspired Oxygen NA My Orders Orders - TATA HERMOSILLO SPANISHER Arterial Blood Gas (03/27/21 15:45) Albuterol/Ipra Inhalation Soln (Duoneb I (03/27/21 15:45) Svn Small Volume Nebulizer (03/27/21 15:45) Procalcitonin (Pct) (03/27/21 16:21) Lr 1000 Ml Wide Open (03/27/21 17:15) Medications Given in ED Current Medications Medications Dose Ordered Sig/Regino Route Start Time Stop Time Status Last Admin Dose Admin Albuterol/ Ipratropium 3 ml ONCE ONCE INH 03/27/21 15:45 03/27/21 15:46 DC 03/27/21 15:53 3 ML Vital Signs/I&O 03/27/21 03/27/21 03/27/21 03/27/21 15:20 15:20 15:30 15:53 Pulse 92 117 Resp 23 B/P (MAP) 102/51 (68) Pulse Ox 80 91 93 97 O2 Delivery Simple Mask OxyMask NIV Bilevel O2 Flow Rate 10.00 10.00 50.00 FiO2 70 Capillary Refill : Diagnostic Imaging Diagonstic Imaging: Xray Plain Films/CT/US/NM/MRI: chest Comments NAME: DEVIN MORALES MED REC#: [id number] PT STATUS: REG ER : 1940 PHYSICIAN: DEACON RIBEIRO MD ADMIT DATE: 03/27/21/ER Draft Date of Exam:03/27/21 CHEST 1 VIEW, AP/PA ONLY INDICATION: Shortness of air. TECHNIQUE: Single view chest 4:29 PM. CORRELATION STUDY: 03/28/2020. FINDINGS: Heart size and vasculature stable. Coronary artery stent over left heart border. Hyperinflated lung powell compatible with COPD. There is, however, slight increased markings at the right lung base. IMPRESSION: Findings of COPD. Questioned early mild superimposed infiltrate at the right lung base. Dictated on workstation # [id number] Dict: 03/27/21 1634 Trans: 03/27/21 1641 PJ [id number] Interpreted by: LEEANNE WEISS DO Electronically signed by: Departure Communication (Admissions) [id number]-he has a soft blood pressure of 91/57. Heart rate is 87. He is breathing more easily now, significantly so. His oxygen saturation is 99%. As such I reduced the BiPAP settings to 12/5 and I reduce the FiO2 down to 30%. I will give him 1 L of LR. Discussed with Dr. Barakat. Will admit for COPD exacerbation. Given the right lower lobe infiltrate with bumped procalcitonin we will treat this with cefepime. I discussed code and intubation status with the patient. He wants neither intubation if it is necessary nor does he want CPR for any cardiac arrest. We will make him DO NOT RESUSCITATE status. Impression Primary Impression: Respiratory distress Additional Impression: COPD exacerbation Disposition: ADMITTED INPATIENT Condition: Stable Admissions Decision to Admit Reason: Admit from ER (General) Decision to Admit/Date: Mar 27, 2021 Time/Decision to Admit Time: 16:08 Departure-Patient Inst. Referrals: YVETTE BARAKAT DO (PCP/Family) Primary Care Physician TATA HERMOSILLO APRN Mar 27, 2021 16:08
[2021-03-27 16:09] LABS: CREATININE SERUM 1.19 MG/DL (0.60-1.30)
--- NOTE | 2021-03-27 16:42 | Diagnostic Imaging Report ---
INDICATION: Shortness of air. TECHNIQUE: Single view chest 4:29 PM. CORRELATION STUDY: 03/28/2020. FINDINGS: Heart size and vasculature stable. Coronary artery stent over left heart border. Hyperinflated lung powell compatible with COPD. There is, however, slight increased markings at the right lung base. IMPRESSION: Findings of COPD. Questioned early mild superimposed infiltrate at the right lung base. Dictated by: Dictated on workstation # [id number]
[2021-03-27] MEDS ORDERED: LACTATED RINGERS 1,000 ML IV SCH (17:15)
[2021-03-27 17:35] VITALS: BP 151/65
[2021-03-27] MEDS ORDERED: RT-ALBUTEROL/IPRATROPIUM 3 ML (DUONEB) VIAL INH PRN (18:15)
[2021-03-27 19:48] VITALS: BP 116/56
[2021-03-27] MEDS ORDERED: ONDANSETRON 4 MG/2 ML (SDV) Z0FRAN IVP PRN (20:15)
[2021-03-27] MEDS: LACTATED RINGERS 1,000 ML IV SCH (21:26)
[2021-03-27] MEDS: CEFEPIME 1,000 MG/SWFI 10 ML IV PUSH IV SCH ×2 (21:26)
[2021-03-27] MEDS: methylPREDNISolone 40 MG/ML (Solu-MEDROL) VIAL IV SCH (21:26)
[2021-03-27] MEDS: RT-ALBUTEROL/IPRATROPIUM 3 ML (DUONEB) VIAL INH SCH (21:54)
[2021-03-27 23:50] VITALS: BP 133/68
[2021-03-28] MEDS: RT-ALBUTEROL/IPRATROPIUM 3 ML (DUONEB) VIAL INH SCH ×6 (02:27→21:43)
[2021-03-28 03:43] VITALS: BP 137/63
[2021-03-28] MEDS: LACTATED RINGERS 1,000 ML IV SCH ×2 (04:12→15:25)
[2021-03-28] MEDS: CEFEPIME 1,000 MG/SWFI 10 ML IV PUSH IV SCH ×8 (04:14→22:46)
[2021-03-28] MEDS: methylPREDNISolone 40 MG/ML (Solu-MEDROL) VIAL IV SCH ×3 (04:15→22:46)
[2021-03-28 06:58] LABS: BASOPHILS % (AUTO) 0 % (0-10); EOSINOPHILS % (AUTO) 0 % (0-10); HEMATOCRIT 31 % (40-54); HEMOGLOBIN 9.8 g/dL (13.3-17.7); LYMPHOCYTES # (AUTO) 0.3 10^3/uL (1.0-4.0); LYMPHOCYTES % (AUTO) 2 % (12-44); MEAN CORPUSCULAR HEMOGLOBIN 29 pg (25-34); MEAN CORPUSCULAR HGB CONC 32 g/dL (32-36); MEAN CORPUSCULAR VOLUME 93 fL (80-99); MONOCYTES # (AUTO) 0.2 10^3/uL (0.0-1.0); MONOCYTES % (AUTO) 2 % (0-12); NEUTROPHILS # (AUTO) 14.2 10^3/uL (1.8-7.8); NEUTROPHILS % (AUTO) 95 % (42-75); PLATELET COUNT 237 10^3/uL (130-400); WHITE BLOOD COUNT 14.9 10^3/uL (4.3-11.0)
[2021-03-28 07:18] LABS: BAND NEUTROPHILS 0 %; BASOPHILS % (MANUAL) 0 %; EOSINOPHILS % (MANUAL) 0 %; LYMPHOCYTES % (MANUAL) 4 %; MONOCYTES % (MANUAL) 3 %; NEUTROPHILS % (MANUAL) 93 %; RBC MORPH NORMAL
[2021-03-28 07:26] LABS: BUN/CREATININE RATIO 19; CALCIUM 9.7 MG/DL (8.5-10.1); CARBON DIOXIDE 25 MMOL/L (21-32); CHLORIDE 99 MMOL/L (98-107); GFR ESTIMATED > 60; GLUCOSE 217 MG/DL (70-105); POTASSIUM 4.7 MMOL/L (3.6-5.0); SODIUM 135 MMOL/L (135-145)
[2021-03-28 07:30] VITALS: BP 127/58
[2021-03-28] MEDS ORDERED: LORazepam INJ 2 MG/ML (ATIVAN) VIAL IVP NR (11:30)
[2021-03-28 11:33] VITALS: BP 131/59
--- NOTE | 2021-03-28 11:43 | History & Physical ---
History of Present Illness History of Present Illness Reason for visit/HPI This is a 80 year old male with oxygen dependent COPD who was brought to the emergency room by his son due to worsening shortness of air/COPD exacerbation. The patient was placed on BIPAP in the emergency room and his CXR showed a possible early infiltrate. COVID and Flu swabs were negative. The patient will be admitted to the medical floor on BIPAP with Cefepime and IV solumedrol as wel l as SVNS with duoneb. Date of Admission Mar 27, 2021 at 16:23 Date Seen by a Provider: Mar 28, 2021 Time Seen by a Provider: 11:36 I consulted on this patient on 03/28/21 11:36 Attending Physician Lita Barakat DO Admitting Physician Lita Barakat DO Consult Allergies and Home Medications Allergies Coded Allergies: hydrocodone (Verified Allergy, Mild, NAUSEA, 07/25/19) oxycodone (Verified Allergy, Mild, NAUSEA, 07/25/19) Home Medications Albuterol/Ipratropium 4 Gm Aero, 1 PUFF PO DAILY, (Reported) Aspirin 81 Mg Tablet.dr, 81 MG PO DAILY, (Reported) Budesonide/Formoterol Fumarate 10.2 Gm Hfa.aer.ad, 2 PUFF IH BID, (Reported) Carbidopa/Levodopa 1 Each Tablet.er, 1 TAB PO TID, (Reported) Hydrocodone Bit/Acetaminophen 1 Each Tablet, 1 EA PO Q4H PRN for PAIN-MODERATE (5-7), (Reported) Insulin Detemir 100 Unit/1 Ml Insuln.pen, 20 UNITS SC HS, (Reported) Ipratropium/Albuterol Sulfate 3 Ml Ampul.neb, 3 ML NEB Q4H PRN for SHORTNESS OF BREATH, (Reported) Losartan Potassium 100 Mg Tablet, 100 MG PO DAILY, (Reported) Pantoprazole Sodium 40 Mg Tablet.dr, 40 MG PO DAILY, (Reported) Prednisone 20 Mg Tab, 40 MG PO DAILY@1200 or 3 days then 20mg daily for 4 days Prescribed by: LITA BARAKAT on 03/30/20 1322 Ropinirole HCl 4 Mg Tablet, 12 MG PO HS PRN for RESTLESS LEGS, (Reported) TAKES 3 (4MG) TABLETS Patient Home Medication List Home Medication List Reviewed: Yes Past Wgwruwk-Giojyz-Ycfaxw Hx Past Med/Social Hx: Reviewed Nursing Past Med/Soc Hx Patient Social History Marrital Status: Alcohol Beverage of Choice: Beer Smoking Status: Former Smoker Former Smoker, Quit: May 25, 1996 Type Used: Cigars, Cigarettes 2nd Hand Smoke Exposure: Yes Recent Foreign Travel: No Contact w/other who traveled: No Recent Hopitalizations: Yes (2 MONTHS AGO - COPD) Immunizations Up To Date Tetanus Booster (TDap): Unknown Pediatric: No Date of Pneumonia Vaccine: Sep 25, 2018 Date of Influenza Vaccine: Sep 25, 2018 Seasonal Allergies Seasonal Allergies: No Past Medical History Surgeries: Cardiac, Coronary Stent, Eye Surgery, Orthopedic Respiratory: COPD, Pneumonia Currently Using CPAP: Yes Currently Using BIPAP: No Cardiac: Coronary Artery Disease, Heart Attack, High Cholesterol, Hypertension Neurological: Parkinson's Disease Reproductive: No Sexually Transmitted Disease: No HIV/AIDS: No Gastrointestinal: Gastroesophageal Reflux Musculoskeletal: Arthritis, Fractures Endocrine: Diabetes, Insulin dep HEENT: Cataract Loss of Vision: Bilateral Hearing Impairment: Hard of Hearing Cancer: Skin Did You Recieve Any Treatments: Yes What Type of Treatment Did You: Surgical Intervention Psychosocial: Anxiety Skin/Integumentary: Eczema History of Blood Disorders: No Adverse Reaction to Blood Starr: No Family History Cancer 09 BROTHER Cancer of colon 09 BROTHER Cataract 03 MOTHER Chest pain 03 MOTHER Congenital heart disease 03 FATHER Congestive heart failure 03 FATHER Family history: Cardiovascular disease 03 FATHER 03 MOTHER Family history: Diabetes mellitus 03 FATHER Family history: Gastrointestinal disease 03 MOTHER Family history: Hypertension 03 MOTHER Hearing loss 03 FATHER Heart disease 03 FATHER History of - respiratory disease 03 FATHER Kidney disease 03 FATHER Myocardial infarction 03 FATHER Stroke 03 FATHER No Family History of: Abdominal aortic aneurysm Mccook's disease Alcoholism Aphasia Cystic fibrosis Dementia Dysphagia Family history: Allergy Family history: Alzheimer's disease Family history: Arthritis Family history: Asthma Family history: Breast disease Family history: Coronary thrombosis Family history: Glaucoma Family history: Osteoporosis Family history: Thyroid disorder Headache Hereditary disease History of - anemia History of - disorder History of drug abuse Human immunodeficiency virus (HIV) seropositivity Hypercholesterolemia Infertile Malignant neoplasm of lung Parkinson's disease Prostate cancer Psychotic disorder Seizure disorder Tuberculosis Visual impairment Review of Systems Constitutional: weakness EENTM: No see HPI, No no symptoms reported, No ear discharge, No hearing loss, No ear pain, No blurred vision, No double vision, No eye pain, No tearing, No vision loss, No dental problems, No hoarseness, No mouth pain, No mouth swelling, No epistaxis, No nose congestion, No nose pain, No throat pain, No throat swelling, No other Respiratory: dyspnea on exertion, short of breath, wheezing Cardiovascular: No no symptoms reported, No see HPI, No chest pain, No edema, No Hx of Intervention, No palpitations, No syncope, No vascular heart diseas, No other Gastrointestinal: No RUQ, No LUQ, No RLQ, No LLQ, No no symptoms reported, No see HPI, No abdominal pain, No constipation, No diarrhea, No dysphagia, No hematemesis, No heartburn, No jaundice, No loss of appetite, No melena, No nausea, No vomiting, No other Genitourinary: No no symptoms reported, No see HPI, No decreased output, No discharge, No dysuria, No frequency, No hematuria, No hesitancy, No incontinence, No nocturia, No pain, No other Musculoskeletal: muscle weakness Skin: No no symptoms reported, No see HPI, No change in color, No change in hair/nails, No dryness, No hx of skin cancer, No lesions, No lumps, No pruritus, No rash, No other Psychiatric/Neurological: Anxiety, Weakness Physical Exam Vital Signs Vital Signs - First Documented 03/27/21 03/27/21 03/27/21 15:20 15:30 17:18 Temp 36.4 Pulse 92 Resp 23 B/P (MAP) 102/51 (68) Pulse Ox 80 O2 Delivery Simple Mask O2 Flow Rate 10.00 FiO2 70 Capillary Refill : Height, Weight, BMI Height: 6'0.00" Weight: 204lbs. 9.0oz. 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) Comments Laboratory Tests 03/27/21 15:25: White Blood Count 9.3, Red Blood Count 3.59L, Hemoglobin 10.7L, Hematocrit 34L, Mean Corpuscular Volume 94, Mean Corpuscular Hemoglobin 30, Mean Corpuscular Hemoglobin Concent 32, Red Cell Distribution Width 14.6H, Platelet Count 264, Mean Platelet Volume 9.8, Immature Granulocyte % (Auto) 3, Neutrophils (%) (Auto) 73, Lymphocytes (%) (Auto) 12, Monocytes (%) (Auto) 9, Eosinophils (%) (Auto) 2, Basophils (%) (Auto) 1, Neutrophils # (Auto) 6.8, Lymphocytes # (Auto) 1.1, Monocytes # (Auto) 0.8, Eosinophils # (Auto) 0.2, Basophils # (Auto) 0.1, Immature Granulocyte # (Auto) 0.2H, Sodium Level 139, Potassium Level 4.1, Chloride Level 100, Carbon Dioxide Level 23, Anion Gap 16H, Blood Urea Nitrogen 19H, Creatinine 1.19, Estimat Glomerular Filtration Rate 59, BUN/Creatinine Ratio 16, Glucose Level 186H, Calcium Level 9.8, Corrected Calcium 9.7, Total Bilirubin 0.4, Aspartate Amino Transf (AST/SGOT) 11, Alanine Aminotransferase (ALT/SGPT) 6, Alkaline Phosphatase 58, C-Reactive Protein High Sensitivity 15.01H, B-Type Natriuretic Peptide 74.0, Total Protein 7.4, Albumin 4.1, Procalcitonin 0.22H 03/27/21 15:30: Influenza Type A (RT-PCR) Not Detected, Influenza Type B (RT-PCR) Not Detected, SARS-CoV-2 RNA (RT-PCR) Not Detected 03/27/21 15:40: Blood Gas Puncture Site RT RAD, Blood Gas Patient Temperature 98.2, Arterial Blood pH 7.38, Arterial Blood Partial Pressure CO2 40, Arterial Blood Partial Pressure O2 61L, Arterial Blood HCO3 23, Arterial Blood Total CO2 24.4, Arterial Blood Oxygen Saturation 92L, Arterial Blood Base Excess -1.7, Ahsan Test YES- POS, Blood Gas Ventilator Setting NO, Blood Gas Inspired Oxygen NA 03/28/21 06:40: White Blood Count 14.9H, Red Blood Count 3.33L, Hemoglobin 9.8L, Hematocrit 31L, Mean Corpuscular Volume 93, Mean Corpuscular Hemoglobin 29, Mean Corpuscular He moglobin Concent 32, Red Cell Distribution Width 14.5, Platelet Count 237, Mean Platelet Volume 10.0, Immature Granulocyte % (Auto) 2, Neutrophils (%) (Auto) 95H, Lymphocytes (%) (Auto) 2L, Monocytes (%) (Auto) 2, Eosinophils (%) (Auto) 0, Basophils (%) (Auto) 0, Neutrophils # (Auto) 14.2H, Lymphocytes # (Auto) 0.3L , Monocytes # (Auto) 0.2, Eosinophils # (Auto) 0.0, Basophils # (Auto) 0.0, Immature Granulocyte # (Auto) 0.3H, Sodium Level 135, Potassium Level 4.7, Chloride Level 99, Carbon Dioxide Level 25, Anion Gap 11, Blood Urea Nitrogen 19H, Creatinine 1.00, Estimat Glomerular Filtration Rate > 60, BUN/Creatinine Ratio 19, Glucose Level 217H, Calcium Level 9.7, Neutrophils % (Manual) 93, Lymphocytes % (Manual) 4, Monocytes % (Manual) 3, Eosinophils % (Manual) 0, Basophils % (Manual) 0, Band Neutrophils 0, Blood Morphology Comment NORMAL Assessment/Plan Assessment and Plan 1. Acute on Chronic Respiratory Failure--currently on BIPAP 2. Acute Exacerbation of COPD--on solumedrol, SVNS with duoneb 3. RLL pneumonia with sepsis--preliminary staph aureus in blood cultures--continue Cefepime 4. DM--insulin requiring--poor compliance and poor control--start accuchecks with SSI and start levemir 5. Hypertension--restart losartan 6. Depression--restart Effexor and mirtazapine Admission Diagnosis Admission Status: Inpatient Order (span 2 midnights) Reason for Inpatient Admission: Will need BIPAP/respiratory support for at least 48hrs LITA BARAKAT DO Mar 28, 2021 11:42
[2021-03-28] MEDS: SINEMET 25/100 (CARBIDOPA/LEVODOPA) TAB PO SCH ×2 (11:48→16:57)
[2021-03-28] MEDS: ENOXAPARIN 40 MG/0.4 ML (LOVENOX) SYR SC SCH (11:48)
[2021-03-28] MEDS ORDERED: inSUlin ASPART (NovoLOG) 1 UNIT/0.01 ML (CHARGE PER UNIT) SC SCH (15:00)
[2021-03-28 16:14] VITALS: BP 143/65
[2021-03-28] MEDS: inSUlin ASPART (NovoLOG) 1 UNIT/0.01 ML (CHARGE PER UNIT) SC SCH ×2 (16:55→22:11)
[2021-03-28] MEDS ORDERED: NEO/POLY/BAC (NEOSPORIN) OINT 15 GM TUBE TOP PRN (18:15)
[2021-03-28 20:08] VITALS: BP 134/63
[2021-03-28] MEDS: MIRTAZAPINE 15 MG (REMERON) TAB PO SCH (22:45)
[2021-03-28] MEDS: LORazepam INJ 2 MG/ML (ATIVAN) VIAL IVP PRN (22:47)
[2021-03-29] VITALS (7 sets, daily range): BP systolic 132–172; BP diastolic 57–84
[2021-03-29] MEDS: LACTATED RINGERS 1,000 ML IV SCH ×3 (00:57→22:25)
[2021-03-29] MEDS: RT-ALBUTEROL/IPRATROPIUM 3 ML (DUONEB) VIAL INH SCH ×5 (02:24→21:40)
[2021-03-29] MEDS: CEFEPIME 1,000 MG/SWFI 10 ML IV PUSH IV SCH ×8 (04:01→20:05)
[2021-03-29] MEDS: methylPREDNISolone 40 MG/ML (Solu-MEDROL) VIAL IV SCH ×3 (04:01→20:05)
[2021-03-29 05:54] LABS: HEMATOCRIT 29 % (40-54); HEMOGLOBIN 9.3 g/dL (13.3-17.7); MEAN CORPUSCULAR HEMOGLOBIN 30 pg (25-34); MEAN CORPUSCULAR HGB CONC 32 g/dL (32-36); MEAN CORPUSCULAR VOLUME 91 fL (80-99); MEAN PLATELET VOLUME 9.9 fL (9.0-12.2); PLATELET COUNT 234 10^3/uL (130-400); WHITE BLOOD COUNT 12.7 10^3/uL (4.3-11.0)
[2021-03-29 06:13] LABS: CHLORIDE 102 MMOL/L (98-107); POTASSIUM 4.3 MMOL/L (3.6-5.0); SODIUM 140 MMOL/L (135-145)
[2021-03-29 06:15] LABS: CALCIUM 9.7 MG/DL (8.5-10.1); GLUCOSE 234 MG/DL (70-105)
[2021-03-29 06:16] LABS: CARBON DIOXIDE 27 MMOL/L (21-32)
[2021-03-29 06:19] LABS: CREATININE SERUM 1.06 MG/DL (0.60-1.30); GFR ESTIMATED > 60
[2021-03-29 06:20] LABS: BUN/CREATININE RATIO 19
[2021-03-29] MEDS: VENlafaxine XR 75 MG (EFFEXOR XR) CAP PO SCH (06:25)
[2021-03-29] MEDS: inSUlin ASPART (NovoLOG) 1 UNIT/0.01 ML (CHARGE PER UNIT) SC SCH ×4 (06:25→21:16)
[2021-03-29] MEDS: SINEMET 25/100 (CARBIDOPA/LEVODOPA) TAB PO SCH ×3 (09:27→17:55)
[2021-03-29] MEDS: DOCUSATE SODIUM 100 MG (COLACE) CAP PO PRN ×2 (09:27→20:05)
[2021-03-29] MEDS: LOSARTAN 100 MG (COZAAR) TABLET PO SCH (09:27)
[2021-03-29] MEDS: PANTOPRAZOLE 40 MG (PROTONIX) TAB PO SCH (09:27)
[2021-03-29] MEDS: ENOXAPARIN 40 MG/0.4 ML (LOVENOX) SYR SC SCH (12:09)
[2021-03-29] MEDS ORDERED: VANCOMYCIN INJECTION 0.1 MG in NS (IVPB) 250 ML IV SCH (12:45)
--- NOTE | 2021-03-29 12:50 | Progress Note ---
Subjective Date Seen by a Provider: Mar 29, 2021 Time Seen by a Provider: 12:44 Subjective/Events-last exam Fwup acute on chronic respiratory failure, pneumonia, sepsis, acute COPD exacerbation, DMII, HTN. Sitting up in bed on vapotherm. Feels much better. Blood cultures growing out MRSA. Objective Exam Vital Signs Date Time Temp Pulse Resp B/P (MAP) Pulse Ox O2 Delivery O2 Flow Rate FiO2 03/29/21 11:25 36.3 76 16 149/70 (96) 98 High Flow N/C 4.00 03/29/21 09:00 High Flow N/C 4.00 03/29/21 08:36 35.8 81 20 149/67 (94) 100 High Flow N/C 4.00 03/29/21 06:45 80 20 95 30.00 03/29/21 04:23 36.0 70 20 132/57 (82) 97 NIV Bilevel 03/29/21 02:24 85 24 96 30.00 03/29/21 00:18 36.4 71 22 133/84 (100) 96 NIV Bilevel 03/28/21 21:43 88 22 96 30.00 03/28/21 21:00 94 NIV Bilevel 03/28/21 20:08 36.9 76 24 134/63 (86) 100 NIV Bilevel 03/28/21 18:04 82 22 95 30.00 03/28/21 16:14 36.5 80 20 143/65 (91) 96 High Flow N/C 4.00 03/28/21 14:45 93 High Flow N/C 4.00 I & O 03/29/21 07:00 Intake Total 1390 ml Output Total 1055 ml Balance 335 ml Capillary Refill : General Appearance: No Apparent Distress Respiratory: Lungs Clear, Decreased Breath Sounds Cardiovascular: Regular Rate, Rhythm, Systolic Murmur Gastrointestinal: normal bowel sounds, non tender, soft Extremity: Non Tender, No Calf Tenderness Neurologic/Psychiatric: Alert, Oriented x3 Results Lab Laboratory Tests 03/28/21 15:40: Glucometer 216H 03/28/21 20:53: Glucometer 169H 03/29/21 05:11: White Blood Count 12.7H, Red Blood Count 3.14L, Hemoglobin 9.3L, Hematocrit 29L, Mean Corpuscular Volume 91, Mean Corpuscular Hemoglobin 30, Mean Corpuscular Hemoglobin Concent 32, Red Cell Distribution Width 14.3, Platelet Count 234, Mean Platelet Volume 9.9, Sodium Level 140, Potassium Level 4.3, Chloride Level 102, Carbon Dioxide Level 27, Anion Gap 11, Blood Urea Nitrogen 20H, Creatinine 1.06, Estimat Glomerular Filtration Rate > 60, BUN/Creatinine Ratio 19, Glucose Level 234H, Calcium Level 9.7 03/29/21 11:03: Glucometer 197H Microbiology 03/27/21 Blood Culture - Preliminary, Resulted Staphylococcus aureus Assessment/Plan Assessment/Plan Assess & Plan/Chief Complaint 1. Acute on Chronic Respiratory Failure--Down to Vapotherm, use BIPAP q HS and prn 2. Acute Pneumonia--on Cefepime 3. Sepsis with MRSA--add vancomycin, change neosporin for right face cancer to bactroban 4. Acute COPD exacerbation--wean solumedrol, 5. DMII--on levemir with SSI 6. HTN--stable Clinical Quality Measures Admission Status Admission Dx 1. Acute on Chronic Respiratory Failure--currently on BIPAP 2. Acute Exacerbation of COPD--on solumedrol, SVNS with duoneb 3. RLL pneumonia with sepsis--preliminary staph aureus in blood cultures--continue Cefepime 4. DM--insulin requiring--poor compliance and poor control--start accuchecks with SSI and start levemir 5. Hypertension--restart losartan 6. Depression--restart Effexor and mirtazapine YVETTE JACKMAN DO Mar 29, 2021 12:50
[2021-03-29] MEDS ORDERED: VANCOMYCIN 1500 MG/NS 500 ML IVPB IV NR ×2 (13:00)
[2021-03-29] MEDS ORDERED: PRD10T PO (14:05)
[2021-03-29] MEDS ORDERED: HYDR-3820 PO (14:05)
[2021-03-29] MEDS ORDERED: ISOS30TA82 PO (14:05)
[2021-03-29] MEDS ORDERED: AMLO-250 PO (14:05)
[2021-03-29] MEDS ORDERED: VENL150C98 PO (14:05)
[2021-03-29] MEDS ORDERED: GBPN600T PO (14:05)
[2021-03-29] MEDS ORDERED: MONT10TA32 PO (14:05)
[2021-03-29] MEDS ORDERED: MELA3TAB39 PO (14:05)
[2021-03-29] MEDS ORDERED: MIRT-68 PO (14:05)
[2021-03-29] MEDS ORDERED: INSU100I29 SQ (15:53)
[2021-03-29] MEDS: MIRTAZAPINE 15 MG (REMERON) TAB PO SCH (20:05)
[2021-03-29] MEDS: MUPIROCIN 2% OINT 22 GM (BACTROBAN) TUBE TOP SCH (20:38)
[2021-03-29] MEDS: LORazepam INJ 2 MG/ML (ATIVAN) VIAL IVP PRN (21:29)
[2021-03-30 00:10] VITALS: BP 173/79
[2021-03-30] MEDS: VANCOMYCIN 1250 MG/NS 250 ML IVPB IV SCH ×4 (00:43→13:49)
[2021-03-30] MEDS: RT-ALBUTEROL/IPRATROPIUM 3 ML (DUONEB) VIAL INH SCH ×6 (01:25→21:14)
[2021-03-30 03:26] VITALS: BP 153/65
[2021-03-30] MEDS: CEFEPIME 1,000 MG/SWFI 10 ML IV PUSH IV SCH ×8 (04:11→20:03)
[2021-03-30] MEDS: methylPREDNISolone 40 MG/ML (Solu-MEDROL) VIAL IV SCH ×3 (04:11→20:03)
[2021-03-30] MEDS: inSUlin ASPART (NovoLOG) 1 UNIT/0.01 ML (CHARGE PER UNIT) SC SCH ×4 (05:31→21:13)
[2021-03-30] MEDS: VENlafaxine XR 75 MG (EFFEXOR XR) CAP PO SCH (06:10)
[2021-03-30 06:50] LABS: HEMATOCRIT 30 % (40-54); HEMOGLOBIN 9.7 g/dL (13.3-17.7); MEAN CORPUSCULAR HEMOGLOBIN 30 pg (25-34); MEAN CORPUSCULAR HGB CONC 32 g/dL (32-36); MEAN CORPUSCULAR VOLUME 92 fL (80-99); MEAN PLATELET VOLUME 10.2 fL (9.0-12.2); PLATELET COUNT 277 10^3/uL (130-400); WHITE BLOOD COUNT 16.8 10^3/uL (4.3-11.0)
[2021-03-30 08:09] VITALS: BP 167/64
[2021-03-30] MEDS: SINEMET 25/100 (CARBIDOPA/LEVODOPA) TAB PO SCH ×3 (08:27→18:26)
[2021-03-30] MEDS: PANTOPRAZOLE 40 MG (PROTONIX) TAB PO SCH (08:27)
[2021-03-30] MEDS: LOSARTAN 100 MG (COZAAR) TABLET PO SCH (08:28)
[2021-03-30] MEDS: LACTATED RINGERS 1,000 ML IV SCH ×2 (08:55→18:36)
[2021-03-30] MEDS: MUPIROCIN 2% OINT 22 GM (BACTROBAN) TUBE TOP SCH ×2 (09:49→20:04)
[2021-03-30 11:25] VITALS: BP 177/71
[2021-03-30] MEDS: ENOXAPARIN 40 MG/0.4 ML (LOVENOX) SYR SC SCH (11:36)
[2021-03-30] MEDS ORDERED: amLODIPine 5 MG (NORVASC) TAB PO ONE (12:45)
--- NOTE | 2021-03-30 12:52 | Progress Note ---
Subjective Date Seen by a Provider: Mar 30, 2021 Time Seen by a Provider: 12:50 Subjective/Events-last exam Fwup acute on chronic respiratory failure, pneumonia, sepsis, acute COPD exacerbation, DMII, HTN. Down to NC on oxygen. Feeling much better. Objective Exam Vital Signs Date Time Temp Pulse Resp B/P (MAP) Pulse Ox O2 Delivery O2 Flow Rate FiO2 03/30/21 11:25 35.5 64 24 177/71 (106) 92 High Flow N/C 3.00 03/30/21 10:20 99 High Flow N/C 3.00 03/30/21 09:00 98 High Flow N/C 3.00 03/30/21 08:09 36.4 64 22 167/64 (98) 98 High Flow N/C 3.00 03/30/21 06:52 99 High Flow N/C 3.00 03/30/21 03:26 36.1 60 18 153/65 (94) 100 NIV Bilevel 30.00 03/30/21 01:25 78 21 95 30.00 03/30/21 00:10 35.7 79 18 173/79 (110) 91 NIV Bilevel 30.00 03/29/21 21:40 84 28 96 30.00 03/29/21 21:00 98 NIV Bilevel 03/29/21 20:00 36.0 73 16 160/70 (100) 98 NIV Bilevel 30.00 03/29/21 18:29 80 20 95 30.00 03/29/21 17:57 157/71 (99) 03/29/21 16:00 36.1 75 20 172/73 (106) 98 High Flow N/C 3.00 I & O 03/30/21 06:59 Intake Total 2287 ml Output Total 1750 ml Balance 537 ml Capillary Refill : General Appearance: No Apparent Distress Neck: Supple Respiratory: Decreased Breath Sounds, Wheezing Gastrointestinal: normal bowel sounds, non tender, soft Extremity: Non Tender, No Calf Tenderness, No Pedal Edema Neurologic/Psychiatric: Alert, Oriented x3 Results Lab Laboratory Tests 03/29/21 15:19: Glucometer 219H 03/29/21 20:47: Glucometer 142H 03/30/21 05:30: Glucometer 145H 03/30/21 05:55: White Blood Count 16.8H, Red Blood Count 3.28L, Hemoglobin 9.7L, Hematocrit 30L, Mean Corpuscular Volume 92, Mean Corpuscular Hemoglobin 30, Mean Corpuscular Hemoglobin Concent 32, Red Cell Distribution Width 14.3, Platelet Count 277, Mean Platelet Volume 10.2 03/30/21 11:03: Glucometer 135H Microbiology 03/27/21 Blood Culture - Final, Complete Staphylococcus aureus Assessment/Plan Assessment/Plan Assess & Plan/Chief Complaint 1. Acute on Chronic Respiratory Failure--Down to NC, use BIPAP q HS and prn 2. Acute Pneumonia--on Cefepime, CXR not done yet 3. Sepsis with MRSA--on vancomycin, applying right face cancer to bactroban 4. Acute COPD exacerbation--weaned solumedrol yesterday 5. DMII--on levemir with SSI 6. HTN--stable, add back amlodopine 7. Leukocytosis--LIkely due to steroids but will await CXR results and repeat in AM Clinical Quality Measures Admission Status Admission Dx 1. Acute on Chronic Respiratory Failure--currently on BIPAP 2. Acute Exacerbation of COPD--on solumedrol, SVNS with duoneb 3. RLL pneumonia with sepsis--preliminary staph aureus in blood cultures--continue Cefepime 4. DM--insulin requiring--poor compliance and poor control--start accuchecks with SSI and start levemir 5. Hypertension--restart losartan 6. Depression--restart Effexor and mirtazapine YVETTE JACKMAN DO Mar 30, 2021 12:52
[2021-03-30 16:00] VITALS: BP 157/75
--- NOTE | 2021-03-30 16:41 | Diagnostic Imaging Report ---
HISTORY: Pneumonia. COMPARISON: 03/29/2020 TECHNIQUE: Two views of the chest. FINDINGS: Lung volumes are large. No focal consolidation is seen. There is no pleural effusion or pneumothorax. The cardiac silhouette is normal in size. There are degenerative changes in the thoracic spine. IMPRESSION: 1. Large lung volumes with no acute pulmonary abnormality seen. Dictated by: Dictated on workstation # [id number]
[2021-03-30 19:52] VITALS: BP 156/72
[2021-03-30] MEDS: LORazepam INJ 2 MG/ML (ATIVAN) VIAL IVP PRN (19:58)
[2021-03-30] MEDS: MIRTAZAPINE 15 MG (REMERON) TAB PO SCH (20:02)
[2021-03-30] MEDS: DOCUSATE SODIUM 100 MG (COLACE) CAP PO PRN (20:02)
[2021-03-31] MEDS ORDERED: TROUGH ORDER-PHARMACY XX NR
[2021-03-31 00:25] VITALS: BP 136/70
[2021-03-31 00:46] LABS: HEMATOCRIT 29 % (40-54); HEMOGLOBIN 9.5 g/dL (13.3-17.7); MEAN CORPUSCULAR HEMOGLOBIN 30 pg (25-34); MEAN CORPUSCULAR VOLUME 90 fL (80-99); WHITE BLOOD COUNT 15.1 10^3/uL (4.3-11.0)
[2021-03-31 00:47] LABS: MEAN CORPUSCULAR HGB CONC 33 g/dL (32-36); MEAN PLATELET VOLUME 9.5 fL (9.0-12.2); PLATELET COUNT 247 10^3/uL (130-400)
[2021-03-31 00:59] LABS: CHLORIDE 99 MMOL/L (98-107); POTASSIUM 4.2 MMOL/L (3.6-5.0); SODIUM 139 MMOL/L (135-145)
[2021-03-31 01:00] LABS: GLUCOSE 157 MG/DL (70-105)
[2021-03-31 01:02] LABS: CARBON DIOXIDE 25 MMOL/L (21-32)
[2021-03-31 01:04] LABS: CREATININE SERUM 0.86 MG/DL (0.60-1.30); GFR ESTIMATED > 60
[2021-03-31 01:05] LABS: BUN/CREATININE RATIO 23
[2021-03-31] MEDS: VANCOMYCIN 1250 MG/NS 250 ML IVPB IV SCH ×4 (01:20→13:52)
[2021-03-31] MEDS: RT-ALBUTEROL/IPRATROPIUM 3 ML (DUONEB) VIAL INH SCH ×5 (02:05→21:09)
[2021-03-31] MEDS: CEFEPIME 1,000 MG/SWFI 10 ML IV PUSH IV SCH ×8 (02:47→21:14)
[2021-03-31 03:59] VITALS: BP 131/58
[2021-03-31] MEDS: methylPREDNISolone 40 MG/ML (Solu-MEDROL) VIAL IV SCH (05:13)
[2021-03-31] MEDS: LACTATED RINGERS 1,000 ML IV SCH (05:14)
[2021-03-31] MEDS: inSUlin ASPART (NovoLOG) 1 UNIT/0.01 ML (CHARGE PER UNIT) SC SCH ×4 (05:16→21:16)
[2021-03-31] MEDS: VENlafaxine XR 75 MG (EFFEXOR XR) CAP PO SCH (06:36)
[2021-03-31 07:30] VITALS: BP 159/78
[2021-03-31] MEDS: LOSARTAN 100 MG (COZAAR) TABLET PO SCH (09:56)
[2021-03-31] MEDS: SINEMET 25/100 (CARBIDOPA/LEVODOPA) TAB PO SCH ×3 (09:56→18:29)
[2021-03-31] MEDS: PANTOPRAZOLE 40 MG (PROTONIX) TAB PO SCH (09:56)
[2021-03-31] MEDS: amLODIPine 5 MG (NORVASC) TAB PO SCH (09:57)
[2021-03-31] MEDS: MUPIROCIN 2% OINT 22 GM (BACTROBAN) TUBE TOP SCH ×2 (09:57→21:16)
[2021-03-31 11:00] VITALS: BP 132/59
[2021-03-31] MEDS: ENOXAPARIN 40 MG/0.4 ML (LOVENOX) SYR SC SCH (12:17)
--- NOTE | 2021-03-31 12:53 | Progress Note ---
Subjective Date Seen by a Provider: Mar 31, 2021 Time Seen by a Provider: 12:50 Subjective/Events-last exam Fwup acute on chronic respiratory failure, pneumonia, sepsis, acute COPD exacerbation, DMII, HTN. On BIPAP at night and NC during day. Objective Exam Vital Signs Date Time Temp Pulse Resp B/P (MAP) Pulse Ox O2 Delivery O2 Flow Rate FiO2 03/31/21 09:35 96 High Flow N/C 3.00 03/31/21 08:00 93 High Flow N/C 3.00 03/31/21 07:30 36.5 67 17 159/78 (105) 92 High Flow N/C 3.00 03/31/21 06:58 98 High Flow N/C 3.00 03/31/21 03:59 36.5 65 22 131/58 (82) 100 High Flow N/C 3.00 03/31/21 02:05 72 20 95 30.00 03/31/21 00:25 36.3 68 20 136/70 (92) 100 High Flow N/C 3.00 03/30/21 21:14 70 22 97 30.00 03/30/21 20:24 93 High Flow N/C 3.00 03/30/21 19:52 36.6 71 18 156/72 (100) 93 High Flow N/C 3.00 03/30/21 18:25 94 High Flow N/C 3.00 03/30/21 16:00 36.1 73 24 157/75 (102) 95 High Flow N/C 3.00 03/30/21 14:45 96 High Flow N/C 3.00 I & O 03/31/21 07:00 Intake Total 4502.5 ml Output Total 200 ml Balance 4302.5 ml Capillary Refill : General Appearance: No Apparent Distress Neck: Supple Respiratory: Lungs Clear Gastrointestinal: normal bowel sounds, non tender, soft Extremity: Non Tender, No Calf Tenderness, No Pedal Edema Neurologic/Psychiatric: Alert, Oriented x3 Results Lab Laboratory Tests 03/30/21 16:06: Glucometer 174H 03/30/21 20:28: Glucometer 195H 03/31/21 00:41: White Blood Count 15.1H, Red Blood Count 3.21L, Hemoglobin 9.5L, Hematocrit 29L, Mean Corpuscular Volume 90, Mean Corpuscular Hemoglobin 30, Mean Corpuscular Hemoglobin Concent 33, Red Cell Distribution Width 14.2, Platelet Count 247, Mean Platelet Volume 9.5, Sodium Level 139, Potassium Level 4.2, Chloride Level 99, Carbon Dioxide Level 25, Anion Gap 15H, Blood Urea Nitrogen 20H, Creatinine 0.86, Estimat Glomerular Filtration Rate > 60, BUN/Creatinine Ratio 23, Glucose Level 157H, Calcium Level 9.0, Vancomycin Level Trough 13.5 03/31/21 05:06: Glucometer 130H 03/31/21 12:03: Glucometer 233H Microbiology 03/27/21 Blood Culture - Final, Complete Staphylococcus aureus Assessment/Plan Assessment/Plan Assess & Plan/Chief Complaint 1. Acute on Chronic Respiratory Failure--Down to NC, use BIPAP q HS and prn 2. Acute Pneumonia--on Cefepime, CXR improved 3. Sepsis with MRSA--on vancomycin, applying right face cancer to bactroban 4. Acute COPD exacerbation--weaned solumedrol again 5. DMII--on levemir with SSI 6. HTN--stable, added back amlodopine yesterday 7. Leukocytosis--improved slightly will decrease solumedrol and continue abx and recheck in AM, plan for DC tomorrow Clinical Quality Measures Admission Status Admission Dx 1. Acute on Chronic Respiratory Failure--currently on BIPAP 2. Acute Exacerbation of COPD--on solumedrol, SVNS with duoneb 3. RLL pneumonia with sepsis--preliminary staph aureus in blood cultures--continue Cefepime 4. DM--insulin requiring--poor compliance and poor control--start accuchecks with SSI and start levemir 5. Hypertension--restart losartan 6. Depression--restart Effexor and mirtazapine YVETTE JACKMAN DO Mar 31, 2021 12:52
[2021-03-31 15:41] VITALS: BP 120/47
[2021-03-31 19:43] VITALS: BP 139/65
[2021-03-31] MEDS: MIRTAZAPINE 15 MG (REMERON) TAB PO SCH (21:13)
[2021-03-31] MEDS: predniSONE 20 MG TAB PO SCH (21:13)
[2021-03-31] MEDS: LORazepam INJ 2 MG/ML (ATIVAN) VIAL IVP PRN (21:14)
[2021-03-31] MEDS: DOCUSATE SODIUM 100 MG (COLACE) CAP PO PRN (23:54)
[2021-04-01] MEDS: VANCOMYCIN 1250 MG/NS 250 ML IVPB IV SCH ×4 (00:02→13:13)
[2021-04-01] MEDS: RT-ALBUTEROL/IPRATROPIUM 3 ML (DUONEB) VIAL INH SCH ×6 (02:24→20:44)
[2021-04-01] MEDS: CEFEPIME 1,000 MG/SWFI 10 ML IV PUSH IV SCH ×6 (03:10→15:12)
[2021-04-01 04:00] VITALS: BP 133/60
[2021-04-01 05:22] LABS: HEMATOCRIT 34 % (40-54); MEAN CORPUSCULAR HEMOGLOBIN 29 pg (25-34); MEAN CORPUSCULAR HGB CONC 32 g/dL (32-36); MEAN CORPUSCULAR VOLUME 90 fL (80-99); MEAN PLATELET VOLUME 9.5 fL (9.0-12.2); PLATELET COUNT 281 10^3/uL (130-400); WHITE BLOOD COUNT 21.4 10^3/uL (4.3-11.0)
[2021-04-01] MEDS: VENlafaxine XR 75 MG (EFFEXOR XR) CAP PO SCH (06:10)
[2021-04-01] MEDS: inSUlin ASPART (NovoLOG) 1 UNIT/0.01 ML (CHARGE PER UNIT) SC SCH ×4 (06:11→20:50)
[2021-04-01 08:00] VITALS: BP 149/78
[2021-04-01] MEDS: LOSARTAN 100 MG (COZAAR) TABLET PO SCH (08:04)
[2021-04-01] MEDS: SINEMET 25/100 (CARBIDOPA/LEVODOPA) TAB PO SCH ×3 (08:04→17:34)
[2021-04-01] MEDS: predniSONE 20 MG TAB PO SCH ×2 (08:05→20:49)
[2021-04-01] MEDS: PANTOPRAZOLE 40 MG (PROTONIX) TAB PO SCH (08:05)
[2021-04-01] MEDS: MUPIROCIN 2% OINT 22 GM (BACTROBAN) TUBE TOP SCH ×2 (08:05→20:50)
[2021-04-01] MEDS: amLODIPine 5 MG (NORVASC) TAB PO SCH (08:13)
--- NOTE | 2021-04-01 10:13 | Progress Note ---
Subjective Date Seen by a Provider: Apr 01, 2021 Time Seen by a Provider: 10:10 Subjective/Events-last exam Fwup acute on chronic respiratory failure, pneumonia, sepsis, acute COPD exacerbation, DMII, HTN. Does not look as well today. Complains of abdominal pain. Has not had BM since admission. Objective Exam Vital Signs Date Time Temp Pulse Resp B/P (MAP) Pulse Ox O2 Delivery O2 Flow Rate FiO2 04/01/21 08:46 94 High Flow N/C 3.00 04/01/21 08:00 37.6 96 20 149/78 (101) 98 High Flow N/C 3.00 04/01/21 04:00 37.2 67 18 133/60 (84) 94 High Flow N/C 3.00 04/01/21 02:24 94 High Flow N/C 3.00 03/31/21 21:10 61 20 94 30.00 03/31/21 20:00 94 High Flow N/C 3.00 03/31/21 19:43 36.3 69 18 139/65 (89) 95 High Flow N/C 3.00 03/31/21 18:11 94 High Flow N/C 3.00 03/31/21 15:41 36.6 67 20 120/47 (71) 97 High Flow N/C 3.00 03/31/21 11:00 36.5 103 18 132/59 (83) 93 High Flow N/C 3.00 I & O 04/01/21 07:00 Intake Total 2392.5 ml Output Total 1025 ml Balance 1367.5 ml Capillary Refill : General Appearance: Mild Distress Respiratory: Lungs Clear, Decreased Breath Sounds Cardiovascular: Regular Rate, Rhythm Gastrointestinal: soft, abnormal bowel sounds, tenderness Extremity: Non Tender, No Calf Tenderness, No Pedal Edema Neurologic/Psychiatric: Alert, Oriented x3 Skin: Warm/Dry Results Lab Laboratory Tests 03/31/21 12:03: Glucometer 233H 03/31/21 15:51: Glucometer 144H 03/31/21 20:46: Glucometer 117H 04/01/21 04:57: White Blood Count 21.4H, Red Blood Count 3.76L, Hemoglobin 11.0L, Hematocrit 34L , Mean Corpuscular Volume 90, Mean Corpuscular Hemoglobin 29, Mean Corpuscular Hemoglobin Concent 32, Red Cell Distribution Width 14.3, Platelet Count 281, Mean Platelet Volume 9.5 04/01/21 06:16: Glucometer 108 Microbiology 03/27/21 Blood Culture - Final, Complete Staphylococcus aureus Assessment/Plan Assessment/Plan Assess & Plan/Chief Complaint 1. Acute on Chronic Respiratory Failure--Down to NC, use BIPAP q HS and prn 2. Acute Pneumonia--on Cefepime, CXR improved 3. Sepsis with MRSA--on vancomycin, applying right face cancer to bactroban 4. Acute COPD exacerbation--weaned from solumedrol to prednisone 5. DMII--on levemir with SSI 6. HTN--stable 7. Leukocytosis--worsened, will check flat/upright abdomen stat 8. Abdominal Pain/Constipation--check stat flat/upright of abdomen Clinical Quality Measures Admission Status Admission Dx 1. Acute on Chronic Respiratory Failure--currently on BIPAP 2. Acute Exacerbation of COPD--on solumedrol, SVNS with duoneb 3. RLL pneumonia with sepsis--preliminary staph aureus in blood cultures--continue Cefepime 4. DM--insulin requiring--poor compliance and poor control--start accuchecks with SSI and start levemir 5. Hypertension--restart losartan 6. Depression--restart Effexor and mirtazapine YVETTE JACKMAN DO Apr 01, 2021 10:13
--- NOTE | 2021-04-01 11:22 | Diagnostic Imaging Report ---
INDICATION: Left-sided abdominal pain COMPARISON: None FINDINGS: KUB and upright views of the abdomen demonstrate mild constipation without obstruction or ileus. There is no free air. Osseous structures stable. IMPRESSION: Mild constipation Dictated by: Dictated on workstation # [id number]
[2021-04-01] MEDS: ENOXAPARIN 40 MG/0.4 ML (LOVENOX) SYR SC SCH (11:49)
[2021-04-01 11:50] VITALS: BP 132/65
[2021-04-01] MEDS: DOCUSATE SODIUM 100 MG (COLACE) CAP PO PRN (13:14)
[2021-04-01] MEDS ORDERED: polyethylene glycoL POWDER 17 GM (MIRALAX) PACK PO NR (13:45)
[2021-04-01] MEDS ORDERED: SENNA W/DOCUSATE (SENOKOT S) TABLET PO NR (13:45)
[2021-04-01 16:00] VITALS: BP 135/68
[2021-04-01 20:00] VITALS: BP 116/72
[2021-04-01] MEDS: SENNA W/DOCUSATE (SENOKOT S) TABLET PO SCH (20:49)
[2021-04-01] MEDS: polyethylene glycoL POWDER 17 GM (MIRALAX) PACK PO SCH (20:49)
[2021-04-01] MEDS: MIRTAZAPINE 15 MG (REMERON) TAB PO SCH (20:49)
[2021-04-02] VITALS (8 sets, daily range): BP systolic 110–133; BP diastolic 44–80
[2021-04-02] MEDS: VANCOMYCIN 1250 MG/NS 250 ML IVPB IV SCH ×4 (00:17→12:18)
[2021-04-02] MEDS: RT-ALBUTEROL/IPRATROPIUM 3 ML (DUONEB) VIAL INH SCH ×4 (02:07→20:33)
[2021-04-02] MEDS: VENlafaxine XR 75 MG (EFFEXOR XR) CAP PO SCH (06:34)
[2021-04-02 06:37] LABS: HEMATOCRIT 31 % (40-54); MEAN CORPUSCULAR HEMOGLOBIN 29 pg (25-34); MEAN CORPUSCULAR HGB CONC 32 g/dL (32-36); MEAN CORPUSCULAR VOLUME 92 fL (80-99); MEAN PLATELET VOLUME 9.8 fL (9.0-12.2); PLATELET COUNT 238 10^3/uL (130-400); WHITE BLOOD COUNT 21.8 10^3/uL (4.3-11.0)
[2021-04-02 06:39] LABS: ALBUMIN 3.3 GM/DL (3.2-4.5)
[2021-04-02 06:40] LABS: CHLORIDE 101 MMOL/L (98-107); POTASSIUM 3.8 MMOL/L (3.6-5.0); SODIUM 140 MMOL/L (135-145)
[2021-04-02 06:41] LABS: CALCIUM 8.8 MG/DL (8.5-10.1)
[2021-04-02 06:42] LABS: GLUCOSE 80 MG/DL (70-105); TOTAL PROTEIN 5.9 GM/DL (6.4-8.2)
[2021-04-02 06:43] LABS: CARBON DIOXIDE 28 MMOL/L (21-32)
[2021-04-02 06:44] LABS: BILIRUBIN,TOTAL 0.5 MG/DL (0.1-1.0)
[2021-04-02 06:45] LABS: ALKALINE PHOSPHATASE 42 U/L (40-136)
[2021-04-02 06:46] LABS: CREATININE SERUM 0.88 MG/DL (0.60-1.30); GFR ESTIMATED > 60
[2021-04-02 06:47] LABS: BUN/CREATININE RATIO 28
[2021-04-02 06:49] LABS: ALANINE AMINOTRANSFERASE 12 U/L (0-55)
[2021-04-02] MEDS: inSUlin ASPART (NovoLOG) 1 UNIT/0.01 ML (CHARGE PER UNIT) SC SCH ×4 (06:59→20:46)
--- NOTE | 2021-04-02 09:29 | Progress Note ---
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 HE HAS MRSA SEPSIS WITH PERSISTENTLY ELEVATED WHITE COUNT AND COPD EXACERBATION WITH PNEUMONIA TODAY HE REPORTS THAT HE HAS LEFT SIDED ABDOMINAL PAIN, HE ALSO C/O CONSTIPATION. Review of Systems General: No Chills; Fatigue Pulmonary: No Dyspnea, No Cough Cardiovascular: No: Chest Pain, Palpitations Gastrointestinal: Abdominal Pain, Constipation; No: Nausea Genitourinary: No Dysuria Neurological: Weakness; No: Confusion Objective Exam Vital Signs Vital Signs - First Documented 03/27/21 03/27/21 03/27/21 15:20 15:30 17:18 Temp 36.4 Pulse 92 Resp 23 B/P (MAP) 102/51 (68) Pulse Ox 80 O2 Delivery Simple Mask O2 Flow Rate 10.00 FiO2 70 Capillary Refill : General Appearance: No Apparent Distress, WD/WN Eyes: Bilateral Eye Normal Inspection, Bilateral Eye PERRL, Bilateral Eye EOMI HEENT: PERRL/EOMI Neck: Full Range of Motion, Supple Respiratory: Lungs Clear, Decreased Breath Sounds (THROUGHOUT) Cardiovascular: Regular Rate, Rhythm Gastrointestinal: Normal Bowel Sounds, Non Tender, Soft Back: No CVA Tenderness Extremity: Non Tender, No Calf Tenderness, No Pedal Edema Neurologic/Psychiatric: Alert, Oriented x3, No Motor/Sensory Deficits, Normal Mood/Affect Skin: Warm/Dry, Other (LARGE LESION RIGHT CHEEK NODULAR) Results Lab Laboratory Tests 04/01/21 11:57: Glucometer 140H 04/01/21 16:01: Glucometer 217H 04/01/21 20:24: Glucometer 132H 04/02/21 06:00: White Blood Count 21.8H, Red Blood Count 3.41L, Hemoglobin 10.0L, Hematocrit 31L , Mean Corpuscular Volume 92, Mean Corpuscular Hemoglobin 29, Mean Corpuscular Hemoglobin Concent 32, Red Cell Distribution Width 14.7H, Platelet Count 238, Mean Platelet Volume 9.8, Sodium Level 140, Potassium Level 3.8, Chloride Level 101, Carbon Dioxide Level 28, Anion Gap 11, Blood Urea Nitrogen 25H, Creatinine 0.88, Estimat Glomerular Filtration Rate > 60, BUN/Creatinine Ratio 28, Glucose Level 80, Calcium Level 8.8, Corrected Calcium 9.4, Total Bilirubin 0.5, Aspartate Amino Transf (AST/SGOT) 8, Alanine Aminotransferase (ALT/SGPT) 12, Alkaline Phosphatase 42, Total Protein 5.9L, Albumin 3.3 Microbiology 03/27/21 Blood Culture - Final, Complete Staphylococcus aureus Assessment/Plan Assessment/Plan Admission Dx ACUTE ON CHRONIC RESPIRATORY FAILURE PNEUMONIA SEPSIS WITH MRSA ACUTE COPD EXACERBATION DIABETES MELLITUS TYPE 2 HYPERTENSION CONSTIPATION WITH LUQ /LLQ ABDOMINAL PAIN LEUKOCYTOSIS Assessment and Plan ACUTE ON CHRONIC RESPIRATORY FAILURE PNEUMONIA SEPSIS WITH MRSA ACUTE COPD EXACERBATION DIABETES MELLITUS TYPE 2 HYPERTENSION CONSTIPATION WITH LUQ /LLQ ABDOMINAL PAIN LEUKOCYTOSIS ACUTE ON CHRONIC RESPIRATORY FAILURE WITH PNEUMONIA AND COPD EXACERBATION - IMPROVED, CONTINUE WITH CURRENT MANAGEMENT, PREDNISONE, IV ANTIBIOTICS - ADD DIFLUCAN TO CURRENT REGIMEN SEPSIS WITH MRSA - PT ON VANCOMYCIN DIABETES MELLITUS TYPE 2 - FSBS, PT ON INSULIN - LEVEMIR 20 UNITS HYPERTENSION - PT ON CURRENT HOME REGIMEN - AMLODIPINE 5MG, LOSARTAN 100MG CONSTIPATION WITH LUQ /LLQ ABDOMINAL PAIN - ABDOMINAL XRAY SHOWED CONSTIPATION - DULCOLAX SUPPOSITORY TODAY - MIRALAX TODAY WELL, MONITOR OUTPUT LEUKOCYTOSIS - WBC'S 21.8 (PARTIALLY SECONDARY TO STEROIDS - CONTINUE WITH IV ANTIBIOTICS - START ON DIFLUCAN ORALLY,M ONITOR LABS. PARKINSON'S DISEASE - PT ON SINEMET 25/100MG TID - CONTINUE CURRENT REGIMEN FARZAD FOX MD Apr 02, 2021 09:29
[2021-04-02] MEDS: predniSONE 20 MG TAB PO SCH ×2 (09:40→20:45)
[2021-04-02] MEDS: amLODIPine 5 MG (NORVASC) TAB PO SCH (09:40)
[2021-04-02] MEDS: LOSARTAN 100 MG (COZAAR) TABLET PO SCH (09:40)
[2021-04-02] MEDS: SINEMET 25/100 (CARBIDOPA/LEVODOPA) TAB PO SCH ×3 (09:40→17:59)
[2021-04-02] MEDS: PANTOPRAZOLE 40 MG (PROTONIX) TAB PO SCH (09:40)
[2021-04-02] MEDS: SENNA W/DOCUSATE (SENOKOT S) TABLET PO SCH ×2 (09:40→20:45)
[2021-04-02] MEDS: MUPIROCIN 2% OINT 22 GM (BACTROBAN) TUBE TOP SCH ×2 (09:41→20:46)
[2021-04-02] MEDS: ENOXAPARIN 40 MG/0.4 ML (LOVENOX) SYR SC SCH (12:17)
[2021-04-02] MEDS ORDERED: fluCOnazole (DIFLUCAN) 100 MG TAB PO ONE (12:45)
[2021-04-02] MEDS ORDERED: polyethylene glycoL POWDER 17 GM (MIRALAX) PACK PO ONE (12:45)
[2021-04-02] MEDS ORDERED: BISACODYL 10 MG SUPP (DULCOLAX) PR ONE (12:45)
[2021-04-02] MEDS: MIRTAZAPINE 15 MG (REMERON) TAB PO SCH (20:45)
[2021-04-02] MEDS: polyethylene glycoL POWDER 17 GM (MIRALAX) PACK PO SCH (20:45)
[2021-04-03] MEDS: VANCOMYCIN 1250 MG/NS 250 ML IVPB IV SCH ×2 (00:38)
[2021-04-03] MEDS: VENlafaxine XR 75 MG (EFFEXOR XR) CAP PO SCH (06:11)
[2021-04-03] MEDS: inSUlin ASPART (NovoLOG) 1 UNIT/0.01 ML (CHARGE PER UNIT) SC SCH ×2 (06:11→10:48)
[2021-04-03 08:00] VITALS: BP 90/71
[2021-04-03] MEDS ORDERED: fluCOnazole (DIFLUCAN) 100 MG TAB PO SCH (09:00)
[2021-04-03 09:27] VITALS: BP 112/71
--- NOTE | 2021-04-03 09:29 | Progress Note ---
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 HE HAS MRSA SEPSIS WITH PERSISTENTLY ELEVATED WHITE COUNT AND COPD EXACERBATION WITH PNEUMONIA Review of Systems General: No Chills; Fatigue Pulmonary: No Dyspnea, No Cough Cardiovascular: No: Chest Pain, Palpitations Gastrointestinal: Abdominal Pain, Constipation; No: Nausea Genitourinary: No Dysuria Neurological: Weakness; No: Confusion Objective Exam Vital Signs Vital Signs - First Documented 03/28/21 03/28/21 04/02/21 02:28 03:43 13:44 Temp 37.5 Pulse 91 Resp 21 B/P (MAP) 137/63 (87) Pulse Ox 97 O2 Delivery NIV Bilevel O2 Flow Rate 30.00 FiO2 24 Capillary Refill : General Appearance: No Apparent Distress, WD/WN Eyes: Bilateral Eye Normal Inspection, Bilateral Eye PERRL, Bilateral Eye EOMI HEENT: PERRL/EOMI Neck: Full Range of Motion, Supple Respiratory: Lungs Clear, Decreased Breath Sounds (THROUGHOUT) Cardiovascular: Regular Rate, Rhythm Gastrointestinal: Normal Bowel Sounds, Non Tender, Soft Back: No CVA Tenderness Extremity: Non Tender, No Calf Tenderness, No Pedal Edema Neurologic/Psychiatric: Alert, Oriented x3, No Motor/Sensory Deficits, Normal M ood/Affect Skin: Warm/Dry, Other (LARGE LESION RIGHT CHEEK NODULAR) Results Lab Laboratory Tests 04/02/21 10:29: Glucometer 150H 04/02/21 16:27: Glucometer 138H 04/02/21 20:25: Glucometer 205H 04/03/21 06:00: Glucometer 61L Microbiology 03/27/21 Blood Culture - Final, Complete Staphylococcus aureus Assessment/Plan Assessment/Plan Admission Dx ACUTE ON CHRONIC RESPIRATORY FAILURE PNEUMONIA SEPSIS WITH MRSA ACUTE COPD EXACERBATION DIABETES MELLITUS TYPE 2 HYPERTENSION CONSTIPATION WITH LUQ /LLQ ABDOMINAL PAIN LEUKOCYTOSIS Assessment and Plan ACUTE ON CHRONIC RESPIRATORY FAILURE PNEUMONIA SEPSIS WITH MRSA ACUTE COPD EXACERBATION DIABETES MELLITUS TYPE 2 HYPERTENSION CONSTIPATION WITH LUQ /LLQ ABDOMINAL PAIN LEUKOCYTOSIS ACUTE ON CHRONIC RESPIRATORY FAILURE WITH PNEUMONIA AND COPD EXACERBATION - IMPROVED, CONTINUE WITH CURRENT MANAGEMENT, PREDNISONE, IV ANTIBIOTICS - CHANGING TO LEVAQUIN AND ORAL FLUCONAZOLE ON DISCHARGE - ADDED DIFLUCAN TO CURRENT REGIMEN - PT IMPROVED - WILL BE DISCHARGING HIM HOME SEPSIS WITH MRSA - PT ON VANCOMYCIN DIABETES MELLITUS TYPE 2 - FSBS, PT ON INSULIN - LEVEMIR 20 UNITS HYPERTENSION - PT ON CURRENT HOME REGIMEN - AMLODIPINE 5MG, LOSARTAN 100MG CONSTIPATION WITH LUQ /LLQ ABDOMINAL PAIN - ABDOMINAL XRAY SHOWED CONSTIPATION - DULCOLAX SUPPOSITORY TODAY - MIRALAX TODAY WELL, MONITOR OUTPUT LEUKOCYTOSIS - WBC'S 21.8 (PARTIALLY SECONDARY TO STEROIDS - CONTINUE WITH IV ANTIBIOTICS - START ON DIFLUCAN ORALLY,M ONITOR LABS. PARKINSON'S DISEASE - PT ON SINEMET 25/100MG TID - CONTINUE CURRENT REGIMEN Admission Dx ACUTE ON CHRONIC RESPIRATORY FAILURE PNEUMONIA SEPSIS WITH MRSA ACUTE COPD EXACERBATION DIABETES MELLITUS TYPE 2 HYPERTENSION CONSTIPATION WITH LUQ /LLQ ABDOMINAL PAIN LEUKOCYTOSIS Clinical Quality Measures Admission Status Admission Dx ACUTE ON CHRONIC RESPIRATORY FAILURE PNEUMONIA SEPSIS WITH MRSA ACUTE COPD EXACERBATION DIABETES MELLITUS TYPE 2 HYPERTENSION CONSTIPATION WITH LUQ /LLQ ABDOMINAL PAIN LEUKOCYTOSIS FARZAD FOX MD Apr 03, 2021 09:29
[2021-04-03] MEDS ORDERED: METHYLNALTREXONE 12 MG/0.6 ML (RELISTOR) VIAL SQ ONE (09:30)
[2021-04-03] MEDS: PANTOPRAZOLE 40 MG (PROTONIX) TAB PO SCH (09:31)
[2021-04-03] MEDS: predniSONE 20 MG TAB PO SCH (09:31)
[2021-04-03] MEDS: SENNA W/DOCUSATE (SENOKOT S) TABLET PO SCH (09:31)
[2021-04-03] MEDS: SINEMET 25/100 (CARBIDOPA/LEVODOPA) TAB PO SCH (09:31)
[2021-04-03] MEDS: LOSARTAN 100 MG (COZAAR) TABLET PO SCH (09:44)
[2021-04-03] MEDS: MUPIROCIN 2% OINT 22 GM (BACTROBAN) TUBE TOP SCH (09:45)
[2021-04-03] MEDS: amLODIPine 5 MG (NORVASC) TAB PO SCH (09:45)
[2021-04-03 09:48] LABS: HEMATOCRIT 31 % (40-54); HEMOGLOBIN 9.8 g/dL (13.3-17.7); MEAN CORPUSCULAR HEMOGLOBIN 30 pg (25-34); MEAN CORPUSCULAR HGB CONC 32 g/dL (32-36); MEAN CORPUSCULAR VOLUME 92 fL (80-99); MEAN PLATELET VOLUME 9.5 fL (9.0-12.2); PLATELET COUNT 225 10^3/uL (130-400); WHITE BLOOD COUNT 17.9 10^3/uL (4.3-11.0)
[2021-04-03] MEDS: RT-ALBUTEROL/IPRATROPIUM 3 ML (DUONEB) VIAL INH SCH (09:52)
[2021-04-03 10:06] LABS: BUN/CREATININE RATIO 31; CALCIUM 8.8 MG/DL (8.5-10.1); CARBON DIOXIDE 25 MMOL/L (21-32); CHLORIDE 102 MMOL/L (98-107); CREATININE SERUM 0.95 MG/DL (0.60-1.30); GFR ESTIMATED > 60; GLUCOSE 150 MG/DL (70-105); POTASSIUM 4.1 MMOL/L (3.6-5.0); SODIUM 138 MMOL/L (135-145)
--- NOTE | 2021-04-03 11:10 | Discharge Summary ---
Diagnosis/Chief Complaint Date of Admission Mar 27, 2021 at 16:23 Date of Discharge 04/03/21 Discharge Date: Apr 03, 2021 Discharge Time: 12:00 Admission Diagnosis Admission Diagnosis 1. Acute on Chronic Respiratory Failure--currently on BIPAP 2. Acute Exacerbation of COPD--on solumedrol, SVNS with duoneb 3. RLL pneumonia with sepsis--preliminary staph aureus in blood cultures-- continue Cefepime 4. DM--insulin requiring--poor compliance and poor control--start accuchecks with SSI and start levemir 5. Hypertension--restart losartan 6. Depression--restart Effexor and mirtazapine Discharge Diagnosis ACUTE ON CHRONIC RESPIRATORY FAILURE PNEUMONIA SEPSIS WITH MRSA ACUTE COPD EXACERBATION DIABETES MELLITUS TYPE 2 HYPERTENSION CONSTIPATION WITH LUQ /LLQ ABDOMINAL PAIN LEUKOCYTOSIS Reason Hospital Visit This is a 80 year old male with oxygen dependent COPD who was brought to the emergency room by his son due to worsening shortness of air/COPD exacerbation. The patient was placed on BIPAP in the emergency room and his CXR showed a possible early infiltrate. COVID and Flu swabs were negative. The patient will be admitted to the medical floor on BIPAP with Cefepime and IV solumedrol as well as SVNS with duoneb. Discharge Summary Discharge Physical Examination Allergies: Coded Allergies: hydrocodone (Verified Allergy, Mild, NAUSEA, 07/25/19) oxycodone (Verified Allergy, Mild, NAUSEA, 07/25/19) Vitals & I&Os Vital Signs Date Time Temp Pulse Resp B/P (MAP) Pulse Ox O2 Delivery O2 Flow Rate FiO2 04/03/21 09:52 90 Nasal Cannula 0.50 04/03/21 09:27 93 112/71 (85) 04/03/21 08:00 36.4 20 04/02/21 13:44 24 General Appearance: Alert, Oriented X3, Cooperative HEENT: Atraumatic, PERRLA, Mucous Memb Moist/[place], Other (LARGE NODULAR LESION WITH ULCERATION ON RIGHT CHEEK IN FRONT OF EAR) Respiratory: Other (DECREASED THROUGHT - FAINT CRACKLES IN BASES, GOOD EFFORT) Cardiovascular: Regular Rate Abdominal: Normal Bowel Sounds, Soft Extremities: No Clubbing, No Cyanosis Skin: Other (NODULAR LESION ON FACE ON RIGHT, MULTIPLE LESIONS ON ARMS) Neuro: Normal Speech, Cranial Nerves 3-12 NL Psych/Mental Status: Mental Status NL, Mood NL Hospital Course ACUTE ON CHRONIC RESPIRATORY FAILURE PNEUMONIA SEPSIS WITH MRSA ACUTE COPD EXACERBATION DIABETES MELLITUS TYPE 2 HYPERTENSION CONSTIPATION WITH LUQ /LLQ ABDOMINAL PAIN LEUKOCYTOSIS ACUTE ON CHRONIC RESPIRATORY FAILURE WITH PNEUMONIA AND COPD EXACERBATION - IMPROVED, CONTINUE WITH CURRENT MANAGEMENT, PREDNISONE, IV ANTIBIOTICS - CHANGING TO LEVAQUIN AND ORAL FLUCONAZOLE ON DISCHARGE - ADDED DIFLUCAN TO CURRENT REGIMEN - PT IMPROVED - WILL BE DISCHARGING HIM HOME SEPSIS WITH MRSA - PT ON VANCOMYCIN DIABETES MELLITUS TYPE 2 - FSBS, PT ON INSULIN - LEVEMIR 20 UNITS HYPERTENSION - PT ON CURRENT HOME REGIMEN - AMLODIPINE 5MG, LOSARTAN 100MG CONSTIPATION WITH LUQ /LLQ ABDOMINAL PAIN - ABDOMINAL XRAY SHOWED CONSTIPATION - DULCOLAX SUPPOSITORY TODAY - MIRALAX TODAY WELL, MONITOR OUTPUT LEUKOCYTOSIS - WBC'S 21.8 (PARTIALLY SECONDARY TO STEROIDS ON 04/02/21 - DOWN TO 17 ON 04/03/21 - PT INSISTENT ON DISCHARGE TO HOME. - CONTINUE WITH IV ANTIBIOTICS - STARTED ON DIFLUCAN ORALLY,MONITOR LABS. PARKINSON'S DISEASE - PT ON SINEMET 25/100MG TID - CONTINUE CURRENT REGIMEN DC TO HOME WITH FOLLOW UP WITH DR. JACKMAN THIS WEEK AND ONCOLOGY FOR RADIATION TREATMENTS PREVIOUSLY ORDERED RESUME 4 LITERS NC OF OXYGEN ON DC. Pending Labs Laboratory Tests 04/03/21 06:00: Glucometer 61 04/03/21 09:40: White Blood Count 17.9, Red Blood Count 3.30, Hemoglobin 9.8, Hematocrit 31, Mean Corpuscular Volume 92, Mean Corpuscular Hemoglobin 30, Mean Corpuscular Hemoglobin Concent 32, Red Cell Distribution Width 14.7, Platelet Count 225, Mean Platelet Volume 9.5, Sodium Level 138, Potassium Level 4.1, Chloride Level 102, Carbon Dioxide Level 25, Anion Gap 11, Blood Urea Nitrogen 29, Creatinine 0.95, Estimat Glomerular Filtration Rate > 60, BUN/Creatinine Ratio 31, Glucose Level 150, Calcium Level 8.8 04/03/21 10:48: Glucometer 136 Discharge Condition at discharge IMPROVED Instructions to patient/family Please see electronic discharge instructions given to patient. Discharge Medications Reviewed and agree with Discharge Medication list on patient's Discharge Instruction sheet FARZAD FOX MD Apr 03, 2021 11:10
[2021-04-03] MEDS ORDERED: PRD10T PO (11:22)
[2021-04-03] MEDS ORDERED: FLUC100T6 PO (11:22)
[2021-04-03] MEDS ORDERED: LACT460C PO (11:22)
[2021-04-03] MEDS ORDERED: MUPI22OI2 TOP (11:22)
[2021-04-03] MEDS ORDERED: PRD20T PO (11:22)
[2021-04-03] MEDS ORDERED: SENN1TAB76 PO (11:22)
[2021-04-03] MEDS ORDERED: POLY17PO54 PO (11:22)
[2021-04-03] MEDS ORDERED: SULF1TAB38 PO (11:22)
[2021-04-03] MEDS ORDERED: LEVO500T80 PO (11:26)
--- NOTE | 2021-04-03 11:27 | Discharge Inst-Simple/Standard ---
Discharge Inst-Standard Reconcile Patient Problems Problems Reviewed?: Yes Discharge Medications New, Converted or Re-Newed RX: Transmitted to Pharmacy ([facility] pt request) Patient Instructions/Follow Up Plan of Care/Instructions/FU: [address] carline latif next appt with radiation oncologist Activity as Tolerated: Yes Goal: improved strength Discharge Diet: ADA Diet Health Concerns: ACUTE ON CHRONIC RESPIRATORY FAILURE PNEUMONIA SEPSIS WITH MRSA ACUTE COPD EXACERBATION DIABETES MELLITUS TYPE 2 HYPERTENSION CONSTIPATION WITH LUQ /LLQ ABDOMINAL PAIN LEUKOCYTOSIS Return to The Hospital For: worsening shortness of breath or other life threatening illness Medication List: Active Scripts Active Levofloxacin 500 Mg Tablet 500 Mg PO DAILY Florajen Acidophilus (Lactobacillus Acidophilus) 1 Each Capsule 1 Each PO TID Mupirocin 22 Gm Oint...g. 0 Gm TOP BID Prednisone 20 Mg Tab 20 Mg PO UD one tab twice daily x 5 days then one tab daily x 5 days then restart home 10mg regimen of prednisone Stool Softener-Laxative Tablet (Sennosides/Docusate Sodium) 1 Each Tablet 1 Ea PO BID hold for loose stools Polyethylene Glycol 3350 17 Gm Powd.pack 17 Gm PO HS Fluconazole 100 Mg Tablet 100 Mg PO DAILY Prednisone 10 Mg Tab 10 Mg PO DAILY restart on 04/14/21 Reported Levemir Flextouch (Insulin Detemir) 100 Unit/1 Ml Insuln.pen 20 Unit SQ HS Hydrocodone-Acetamin 10-325 mg (Hydrocodone/Acetaminophen) 1 Each Tablet 1 Ea PO Q4H PRN Melatonin 3 Mg Tablet 6 Mg PO HS TAKES 2 (3MG) TABS Mirtazapine 15 Mg Tablet 15 Mg PO HS Amlodipine Besylate 5 Mg Tablet 5 Mg PO DAILY Isosorbide Mononitrate ER (Isosorbide Mononitrate) 30 Mg Tab.er.24h 30 Mg PO DAILY Montelukast Sodium 10 Mg Tablet 10 Mg PO DAILY Gabapentin 600 Mg Tablet 600 Mg PO HS Venlafaxine HCl ER (Venlafaxine HCl) 150 Mg Cap.er.24h 150 Mg PO DAILY Losartan Potassium 100 Mg Tablet 100 Mg PO DAILY Pantoprazole Sodium 40 Mg Tablet.dr 40 Mg PO DAILY Carbidopa-Levo ER 50-200 Tab (Carbidopa/Levodopa) 1 Each Tablet.er 1 Tab PO TID Symbicort 160-4.5 Mcg Inhaler (Budesonide/Formoterol Fumarate) 10.2 Gm Hfa.aer.ad 2 Puff IH BID Lab results: Laboratory Tests Test 04/02/21 16:27 04/02/21 20:25 04/03/21 06:00 04/03/21 09:40 Range/Units Glucometer 138 H 205 H 61 L 70-110 MG/DL White Blood Count 17.9 H 4.3-11.0 10^3/uL Red Blood Count 3.30 L 4.30-5.52 10^6/uL Hemoglobin 9.8 L 13.3-17.7 g/dL Hematocrit 31 L 40-54 % Mean Corpuscular Volume 92 80-99 fL Mean Corpuscular Hemoglobin 30 25-34 pg Mean Corpuscular Hemoglobin Concent 32 32-36 g/dL Red Cell Distribution Width 14.7 H 10.0-14.5 % Platelet Count 225 130-400 10^3/uL Mean Platelet Volume 9.5 9.0-12.2 fL Sodium Level 138 135-145 MMOL/L Potassium Level 4.1 3.6-5.0 MMOL/L Chloride Level 102 98-107 MMOL/L Carbon Dioxide Level 25 21-32 MMOL/L Anion Gap 11 5-14 MMOL/L Blood Urea Nitrogen 29 H 7-18 MG/DL Creatinine 0.95 0.60-1.30 MG/DL Estimat Glomerular Filtration Rate > 60 BUN/Creatinine Ratio 31 Glucose Level 150 H 70-105 MG/DL Calcium Level 8.8 8.5-10.1 MG/DL Test 04/03/21 10:48 Range/Units Glucometer 136 H 70-110 MG/DL My orders: Orders - FARZAD FOX MD Fluconazole Tablet (Diflucan Tablet) (04/02/21 12:45) Fluconazole Tablet (Diflucan Tablet) (04/03/21 09:00) Bisacodyl Suppository (Dulcolax Supposit (04/02/21 12:45) Polyethylene Glycol Powder Pkt (Miralax (04/02/21 12:45) Cbc No Diff (04/03/21 09:28) Cbc No Diff (04/04/21 09:28) Cbc No Diff (04/05/21 09:28) Basic Metabolic Panel (04/03/21 09:28) Basic Metabolic Panel (04/04/21 09:28) Basic Metabolic Panel (04/05/21 09:28) Methylnaltrexone Injection (Relistor Inj (04/03/21 09:30) Attending Discharge Inpt/Inobs (04/03/21 11:16) FARZAD FOX MD Apr 03, 2021 11:24
[2021-04-03] MEDS ORDERED: ALBU18HF2 INH (11:33)
[2021-04-03] MEDS: ENOXAPARIN 40 MG/0.4 ML (LOVENOX) SYR SC SCH (13:04)
[2021-04-03 14:31] VITALS: BP 112/71
== END 2021-04-03 12:45 | disposition home or self-care (01) | DRG 871 ==
LOC: EDUNIT# 15:10 → ER 15:11 → 4TH 16:23 → EDPENDDISTM 04-03 12:00
PROVIDERS: ADMIT Family Medicine; ATTEND Family Medicine
PROC: 5A09357 Assistance with Respiratory Ventilation, Less than 24 Consecutive Hours, Continuous Positive Airway Pressure (ICD-10-PCS; principal; 2021-03-27)
DX: A41.02 Sepsis due to Methicillin resistant Staphylococcus aureus (principal); J96.20 Acute and chronic respiratory failure, unspecified whether with hypoxia or hypercapnia; J18.9 Pneumonia, unspecified organism; J44.1 Chronic obstructive pulmonary disease with (acute) exacerbation; J44.0 Chronic obstructive pulmonary disease with (acute) lower respiratory infection; Z87.891 Personal history of nicotine dependence; Z95.5 Presence of coronary angioplasty implant and graft; J44.9 Chronic obstructive pulmonary disease, unspecified; I25.10 Atherosclerotic heart disease of native coronary artery without angina pectoris; I25.2 Old myocardial infarction; E78.00 Pure hypercholesterolemia, unspecified; I10 Essential (primary) hypertension; G20 Parkinson's disease; K21.9 Gastro-esophageal reflux disease without esophagitis; M19.90 Unspecified osteoarthritis, unspecified site; E11.9 Type 2 diabetes mellitus without complications; Z20.822 Contact with and (suspected) exposure to COVID-19; Z79.82 Long term (current) use of aspirin; Z79.899 Other long term (current) drug therapy; F32.9 Major depressive disorder, single episode, unspecified; Z79.4 Long term (current) use of insulin; D72.829 Elevated white blood cell count, unspecified; T38.0X5A Adverse effect of glucocorticoids and synthetic analogues, initial encounter; K59.00 Constipation, unspecified
CPT/HCPCS: 36415; 71045; 71046; 74019; 77336; 80048; 80053; 80202; 82805; 82947; 83036; 83880; 84145; 85007; 85025; 85027; 86141; 87040; 87077; 87186; 87636; 94640; 94660; 94760

== ENCOUNTER 2021-04-18 14:14 | Outpatient (RCR) | payer MEDICARE ==
[~2021-04-18 14:14] MED LIST changes: +ALBU18HF2 INH; +FLUC100T6 PO; +HYDR-3820 PO; +INSU100I29 SQ; +LACT460C PO; +LEVO500T80 PO; +MELA3TAB39 PO; +MIRT-68 PO; +MONT10TA32 PO; +MUPI22OI2 TOP; +POLY17PO54 PO; +SENN1TAB76 PO; +SULF1TAB38 PO; +VENL150C98 PO
[2021-04-20] MEDS ORDERED: TIOT4MIS2 INH (12:11)
[2021-04-20] MEDS ORDERED: PRD10T PO (12:11)
[2021-04-20] MEDS ORDERED: SILV50CR28 TP (12:11)
[2021-04-20] MEDS ORDERED: CYAN50TA3 PO (12:17)
[2021-04-20] MEDS ORDERED: CALC-823 PO (12:17)
[2021-04-20] MEDS ORDERED: CHOL10007 PO (12:17)
[2021-04-20] MEDS ORDERED: ALBU18HF2 INH (12:17)
[2021-04-20] MEDS ORDERED: ASPI-1238 PO (12:17)
[2021-04-22] MEDS ORDERED: PRD20T PO (10:08)
[2021-04-22] MEDS ORDERED: CEFD300C3 PO (10:08)
[2021-04-25] MEDS ORDERED: LOSA25TA41 PO (08:39)
[2021-04-25] MEDS ORDERED: ROSU20TA32 PO (08:39)
[2021-04-25] MEDS ORDERED: CLOP75TA69 PO (11:39)
[2021-04-25] MEDS ORDERED: APIX5TAB PO (11:41)
[2021-05-11] MEDS ORDERED: ACHYD1T PO (08:42)
[2021-05-11] MEDS ORDERED: POTA20TA8 PO (08:42)
[2021-05-11] MEDS ORDERED: SENN1TAB76 PO (08:42)
[2021-05-11] MEDS ORDERED: LOSA50TA63 PO (08:42)
[2021-05-11] MEDS ORDERED: FURO40TA4 PO (08:42)
[2021-05-11] MEDS ORDERED: GUAI600T43 PO (08:42)
== END 2021-05-13 | disposition home or self-care (01) ==
LOC: ONC 14:14
PROVIDERS: ATTEND Radiology Radiation Oncology
DX: Z51.0 Encounter for antineoplastic radiation therapy (principal); C44.329 Squamous cell carcinoma of skin of other parts of face; E11.9 Type 2 diabetes mellitus without complications; E78.00 Pure hypercholesterolemia, unspecified; Z87.891 Personal history of nicotine dependence
CPT/HCPCS: 77290; 77295; 77300; 77334 ×2; G0463; 77280; 77332; 77336; 99204

== ENCOUNTER 2021-04-18 18:19 | Inpatient (IN) | payer MEDICARE ==
[~2021-04-18] VITALS: Ht 182 cm; Wt 80.5 kg
[2021-04-18] MEDS ORDERED: RT-IPRATROPIUM (ATROVENT) 0.5MG/2.5ML AMP IH ONE (19:00)
[2021-04-18] MEDS ORDERED: RT-ALBUTEROL SULF 2.5 MG/3 ML PRE-MIX VIAL INH ONE (19:00)
[2021-04-18] MEDS ORDERED: NS IV 1000 ML 1,000 ML ONE (19:06)
[2021-04-18] MEDS ORDERED: NS IV 1000 ML 1,000 ML IV SCH ×2 (19:15→20:30)
[2021-04-18 19:18] LABS: BASOPHILS # (AUTO) 0.1 10^3/uL (0.0-0.1); BASOPHILS % (AUTO) 1 % (0-10); EOSINOPHILS % (AUTO) 0 % (0-10); HEMATOCRIT 35 % (40-54); HEMOGLOBIN 10.9 g/dL (13.3-17.7); LYMPHOCYTES # (AUTO) 1.2 10^3/uL (1.0-4.0); LYMPHOCYTES % (AUTO) 13 % (12-44); MEAN CORPUSCULAR HEMOGLOBIN 30 pg (25-34); MEAN CORPUSCULAR HGB CONC 31 g/dL (32-36); MEAN CORPUSCULAR VOLUME 96 fL (80-99); MEAN PLATELET VOLUME 9.8 fL (9.0-12.2); MONOCYTES # (AUTO) 0.5 10^3/uL (0.0-1.0); MONOCYTES % (AUTO) 5 % (0-12); NEUTROPHILS % (AUTO) 76 % (42-75); PLATELET COUNT 273 10^3/uL (130-400); WHITE BLOOD COUNT 9.2 10^3/uL (4.3-11.0)
[2021-04-18 19:35] LABS: PROTHROMBIN TIME PATIENT 13.4 SEC (12.2-14.7)
[2021-04-18 19:35] LABS: ABG BASE EXCESS -3.6 MMOL/L (-2.5-2.5); ABG OXYGEN SATURATION 99 % (94-100); ABG PCO2 47 MMHG (35-45); ABG PO2 191 MMHG (79-93); ABG TCO2 23.9 MMOL/L (21.0-31.0)
[2021-04-18 19:36] LABS: ALLENS TEST YES-POS; INSPIRED O2 90% BIPAP; PATIENT TEMP 95.4; VENTILATOR NO
[2021-04-18 19:37] LABS: ABG PH 7.29 (7.37-7.43)
[2021-04-18 19:55] LABS: ALANINE AMINOTRANSFERASE 7 U/L (0-55); ALBUMIN 4.1 GM/DL (3.2-4.5); ALKALINE PHOSPHATASE 76 U/L (40-136); BILIRUBIN,TOTAL 0.3 MG/DL (0.1-1.0); BUN/CREATININE RATIO 22; CALCIUM 9.7 MG/DL (8.5-10.1); CARBON DIOXIDE 23 MMOL/L (21-32); CHLORIDE 101 MMOL/L (98-107); CREATININE SERUM 1.41 MG/DL (0.60-1.30); GFR ESTIMATED 48; GLUCOSE 350 MG/DL (70-105); POTASSIUM 4.9 MMOL/L (3.6-5.0); SODIUM 139 MMOL/L (135-145); TOTAL PROTEIN 7.7 GM/DL (6.4-8.2)
--- NOTE | 2021-04-18 20:13 | Diagnostic Imaging Report ---
EXAMINATION: Chest radiograph, portable AP view. DATE: 04/18/2021 7:59 PM INDICATION: 80-year-old male, sepsis. COMPARISON: March 27, 2021. FINDINGS: Stable overall appearance of the cardiomediastinal silhouette. There is no identified pneumothorax. There is no large pleural effusion. There is no identified focal airspace consolidation. IMPRESSION: No identified acute cardiopulmonary abnormality. Dictated by: Dictated on workstation # [id number]
[2021-04-18] MEDS ORDERED: CEFEPIME INJECTION 1,000 MG in WATER (STERILE) FOR INJECTION 10 ML IV ONE (20:45)
[2021-04-18] MEDS ORDERED: CEFEPIME INJECTION 2,000 MG in WATER (STERILE) FOR INJECTION 20 ML IV ONE (20:45)
[2021-04-18] MEDS ORDERED: NS (IVPB) 250 ML ONE (20:52)
[2021-04-18] MEDS: VANCOMYCIN INJECTION 750 MG in NS (IVPB) 250 ML IV SCH ×2 (20:54→23:13)
[2021-04-18 21:50] LABS: ABG BASE EXCESS -2.6 MMOL/L (-2.5-2.5); ABG OXYGEN SATURATION 69 % (94-100); ABG PCO2 50 MMHG (35-45); ABG TCO2 25.2 MMOL/L (21.0-31.0)
[2021-04-18 21:53] LABS: ABG PH 7.28 (7.37-7.43); ABG PO2 39 MMHG (79-93); ALLENS TEST YES-POS
[2021-04-18 21:54] LABS: INSPIRED O2 100%; VENTILATOR NO
[2021-04-18] MEDS ORDERED: ONDANSETRON 4 MG/2 ML (SDV) Z0FRAN IV PRN (22:45)
[2021-04-18] MEDS ORDERED: IBUPROFEN 800 MG (MOTRIN) TAB PO PRN (22:45)
[2021-04-18] MEDS ORDERED: ACETAMINOPHEN 500 MG TAB (TYLENOL) PO PRN (22:45)
[2021-04-18] MEDS: 1/2 NS W/KCL 20 MEQ/L 1,000 ML IV SCH (22:57)
[2021-04-18] MEDS: methylPREDNISolone 125 MG (Solu-MEDROL) VIAL IV SCH (22:57)
[2021-04-19 01:41] LABS: BASOPHILS % (AUTO) 0 % (0-10); EOSINOPHILS % (AUTO) 0 % (0-10); HEMATOCRIT 28 % (40-54); HEMOGLOBIN 8.7 g/dL (13.3-17.7); LYMPHOCYTES # (AUTO) 0.1 10^3/uL (1.0-4.0); LYMPHOCYTES % (AUTO) 1 % (12-44); MEAN CORPUSCULAR HGB CONC 32 g/dL (32-36); MEAN CORPUSCULAR VOLUME 94 fL (80-99); MEAN PLATELET VOLUME 9.8 fL (9.0-12.2); MONOCYTES # (AUTO) 0.1 10^3/uL (0.0-1.0); MONOCYTES % (AUTO) 1 % (0-12); NEUTROPHILS # (AUTO) 7.7 10^3/uL (1.8-7.8); NEUTROPHILS % (AUTO) 94 % (42-75); PLATELET COUNT 202 10^3/uL (130-400); WHITE BLOOD COUNT 8.1 10^3/uL (4.3-11.0)
[2021-04-19 01:47] LABS: MEAN CORPUSCULAR HEMOGLOBIN 29 pg (25-34)
[2021-04-19 01:56] LABS: CALCIUM 8.5 MG/DL (8.5-10.1)
[2021-04-19 02:00] LABS: CREATININE SERUM 0.97 MG/DL (0.60-1.30)
[2021-04-19] MEDS ORDERED: RT-ALBUTEROL SULF 2.5 MG/3 ML PRE-MIX VIAL INH PRN (02:00)
[2021-04-19 02:07] LABS: BAND NEUTROPHILS 3 %; LYMPHOCYTES % (MANUAL) 3 %; NEUTROPHILS % (MANUAL) 93 %
[2021-04-19 02:08] LABS: MONOCYTES % (MANUAL) 1 %; RBC MORPH NORMAL; TOXIC GRANULATION/VACUOLAZATIO 1+
[2021-04-19] MEDS: RT-ALBUTEROL SULF 2.5 MG/3 ML PRE-MIX VIAL INH SCH ×6 (02:23→22:02)
[2021-04-19 02:25] VITALS: BP 122/55
[2021-04-19] MEDS: methylPREDNISolone 125 MG (Solu-MEDROL) VIAL IV SCH ×3 (04:59→17:24)
[2021-04-19] MEDS: 1/2 NS W/KCL 20 MEQ/L 1,000 ML IV SCH ×3 (05:00→18:35)
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
[2021-04-19] MEDS: inSUlin ASPART (NovoLOG) 1 UNIT/0.01 ML (CHARGE PER UNIT) SC SCH ×5 (05:11→20:02)
[2021-04-19] MEDS ORDERED: CEFEPIME 1,000 MG/SWFI 10 ML IV PUSH IV SCH ×2 (06:00)
[2021-04-19] MEDS ORDERED: CEFEPIME INJECTION 1,000 MG in WATER (STERILE) FOR INJECTION 10 ML IV SCH (06:00)
[2021-04-19] MEDS: VANCOMYCIN 1 GM/NS 250 ML IVPB IV SCH ×4 (09:40→19:48)
[2021-04-19] MEDS: ENOXAPARIN 40 MG/0.4 ML (LOVENOX) SYR SC SCH (09:57)
[2021-04-19] MEDS: CEFEPIME 1,000 MG/SWFI 10 ML IV PUSH IV SCH ×4 (11:56→18:04)
[2021-04-19] MEDS ORDERED: PANTOPRAZOLE 40 MG (PROTONIX) TAB PO ONE (12:30)
[2021-04-19] MEDS ORDERED: SODIUM BICARB 8.4% 50 MEQ/50 ML (ABBOTT) SYR IV ONE (12:45)
[2021-04-19 12:52] LABS: ABG BASE EXCESS -5.8 MMOL/L (-2.5-2.5); ABG OXYGEN SATURATION 97 % (94-100); ABG PCO2 32 MMHG (35-45); ABG PH 7.38 (7.37-7.43); ABG PO2 87 MMHG (79-93); ABG TCO2 19.3 MMOL/L (21.0-31.0)
[2021-04-19 12:58] LABS: ALLENS TEST YES-POS; INSPIRED O2 40%; PATIENT TEMP 37.3; VENTILATOR NO
[2021-04-19] MEDS: VENlafaxine XR 75 MG (EFFEXOR XR) CAP PO SCH (13:42)
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
[2021-04-19] MEDS: MELATONIN 3 MG TABLET PO SCH (19:55)
[2021-04-19] MEDS: GABAPENTIN 600 MG (NEURONTIN) TAB PO SCH (19:55)
[2021-04-19] MEDS: MIRTAZAPINE 15 MG (REMERON) TAB PO SCH (19:56)
[2021-04-19] MEDS: HYDROcodone/APAP 5 MG/325 MG (LORTAB) TAB PO PRN (21:28)
[2021-04-19 22:02] VITALS: BP 122/55
[2021-04-20] MEDS: CEFEPIME 1,000 MG/SWFI 10 ML IV PUSH IV SCH ×8 (00:06→18:32)
[2021-04-20 01:41] VITALS: BP 138/64
[2021-04-20] MEDS: RT-ALBUTEROL SULF 2.5 MG/3 ML PRE-MIX VIAL INH SCH ×6 (01:41→20:55)
[2021-04-20] MEDS: 1/2 NS W/KCL 20 MEQ/L 1,000 ML IV SCH ×3 (05:08→17:07)
[2021-04-20] MEDS: VENlafaxine XR 75 MG (EFFEXOR XR) CAP PO SCH (06:37)
[2021-04-20] MEDS: inSUlin ASPART (NovoLOG) 1 UNIT/0.01 ML (CHARGE PER UNIT) SC SCH ×4 (06:37→20:38)
[2021-04-20 06:40] VITALS: BP 144/68
[2021-04-20] MEDS: methylPREDNISolone 125 MG (Solu-MEDROL) VIAL IVP SCH ×3 (06:42→18:31)
[2021-04-20] MEDS ORDERED: TROUGH ORDER-PHARMACY XX NR (07:00)
[2021-04-20 08:26] LABS: HEMATOCRIT 26 % (40-54); HEMOGLOBIN 8.2 g/dL (13.3-17.7); MEAN CORPUSCULAR HEMOGLOBIN 30 pg (25-34); MEAN CORPUSCULAR HGB CONC 32 g/dL (32-36); MEAN CORPUSCULAR VOLUME 92 fL (80-99); MEAN PLATELET VOLUME 9.9 fL (9.0-12.2); PLATELET COUNT 198 10^3/uL (130-400); WHITE BLOOD COUNT 9.8 10^3/uL (4.3-11.0)
[2021-04-20 08:43] LABS: ALBUMIN 3.4 GM/DL (3.2-4.5); BILIRUBIN,TOTAL 0.2 MG/DL (0.1-1.0); CALCIUM 8.2 MG/DL (8.5-10.1); CREATININE SERUM 0.94 MG/DL (0.60-1.30); POTASSIUM 4.6 MMOL/L (3.6-5.0); TOTAL PROTEIN 5.9 GM/DL (6.4-8.2)
[2021-04-20] MEDS: PANTOPRAZOLE 40 MG (PROTONIX) TAB PO SCH (08:56)
[2021-04-20] MEDS: VANCOMYCIN 1 GM/NS 250 ML IVPB IV SCH ×4 (08:56→20:25)
[2021-04-20] MEDS: ISOSORBIDE MONONITRATE 30 MG (IMDUR) TAB PO SCH (08:56)
[2021-04-20] MEDS: ENOXAPARIN 40 MG/0.4 ML (LOVENOX) SYR SC SCH (08:56)
[2021-04-20] MEDS ORDERED: TIOT4MIS2 INH (12:11)
[2021-04-20] MEDS ORDERED: PRD10T PO (12:11)
[2021-04-20] MEDS ORDERED: SILV50CR28 TP (12:11)
[2021-04-20] MEDS ORDERED: CHOL10007 PO (12:17)
[2021-04-20] MEDS ORDERED: CYAN50TA3 PO (12:17)
[2021-04-20] MEDS ORDERED: CALC-823 PO (12:17)
[2021-04-20] MEDS ORDERED: ASPI-1238 PO (12:17)
[2021-04-20] MEDS ORDERED: ALBU18HF2 INH (12:17)
--- NOTE | 2021-04-20 12:40 | Progress Note ---
Subjective Date Seen by a Provider: Apr 20, 2021 Time Seen by a Provider: 08:30 Subjective/Events-last exam Fwup acute on chronic respiratory failure, sepis with metabolic and respiratory acidosis, COPD exacerbation, uncontrolled DMII, HTN, Hx of CAD, Right Squamous Cell Carcinoma of Face. Sitting up in bed wearing oxygen. Focused Exam Lactate Level 04/19/21 15:40: Lactic Acid Level 3.87*H 04/19/21 17:44: Lactic Acid Level 3.63*H 04/19/21 19:42: Lactic Acid Level 3.58*H Objective Exam Vital Signs Date Time Temp Pulse Resp B/P (MAP) Pulse Ox O2 Delivery O2 Flow Rate FiO2 04/20/21 11:44 36.7 95 18 142/77 (98) 100 High Flow N/C 5.00 04/20/21 10:47 99 Nasal Cannula 3.00 04/20/21 09:07 92 High Flow N/C 5.00 04/20/21 09:01 73 18 135/64 (87) 92 High Flow N/C 5.00 04/20/21 08:00 36.5 56 14 154/70 (98) 100 NIV CPAP 04/20/21 06:40 50 15 100 40.00 04/20/21 06:34 59 04/20/21 06:00 56 21 144/68 (94) 100 NIV CPAP 04/20/21 05:00 52 150/68 (82) 100 NIV CPAP 04/20/21 04:00 49 15 146/62 (91) 100 NIV CPAP 04/20/21 03:00 64 10 151/69 (88) 100 NIV CPAP 04/20/21 02:00 62 156/68 (100) 100 NIV CPAP 04/20/21 01:41 59 19 100 40.00 04/20/21 01:08 37.7 56 22 138/64 (88) 100 NIV CPAP 04/20/21 01:00 62 04/20/21 00:22 36.2 63 20 111/47 (68) 91 NIV CPAP 04/19/21 23:00 73 22 145/92 (109) 100 NIV CPAP 04/19/21 22:12 37.7 74 16 142/72 (95) 100 NIV CPAP 04/19/21 22:02 69 17 98 40.00 04/19/21 21:00 96 High Flow N/C 3.50 04/19/21 21:00 37.7 76 14 146/58 (87) 100 NIV CPAP 04/19/21 20:00 37.7 78 14 162/72 (102) 100 NIV CPAP 04/19/21 19:44 37.7 67 19 131/61 (84) 96 High Flow N/C 2.00 04/19/21 19:00 71 04/19/21 18:18 98 Nasal Cannula 2.00 04/19/21 18:14 36.8 84 22 146/58 (87) 98 High Flow N/C 2.00 04/19/21 17:21 36.8 86 15 112/81 (91) 96 High Flow N/C 2.00 04/19/21 16:23 71 17 141/57 (85) 94 High Flow N/C 2.00 04/19/21 15:40 36.9 92 22 155/60 (91) 100 High Flow N/C 2.00 04/19/21 14:46 97 Nasal Cannula 2.00 04/19/21 14:00 76 20 139/65 (89) 98 High Flow N/C 2.00 04/19/21 13:00 84 16 134/60 (84) 97 High Flow N/C 2.50 04/19/21 13:00 98 I & O 04/20/21 07:00 Intake Total 1140 ml Output Total 1800 ml Balance -660 ml Capillary Refill : NONE General Appearance: No Apparent Distress Neck: Supple Respiratory: Lungs Clear, Decreased Breath Sounds Cardiovascular: Regular Rate, Rhythm, Systolic Murmur, Gallop/S4 Gastrointestinal: normal bowel sounds, non tender, soft Neurologic/Psychiatric: Alert, Oriented x3 Results Lab Laboratory Tests 04/19/21 12:45: Blood Gas Puncture Site RT BRACH, Blood Gas Patient Temperature 37.3, Arterial Blood pH 7.38, Arterial Blood Partial Pressure CO2 32L, Arterial Blood Partial Pressure O2 87, Arterial Blood HCO3 18L, Arterial Blood Total CO2 19.3L, Arterial Blood Oxygen Saturation 97, Arterial Blood Base Excess -5.8L, Ahsan Test YES-POS, Blood Gas Ventilator Setting NO, Blood Gas Inspired Oxygen 40% 04/19/21 12:52: Lactic Acid Level 4.26*H 04/19/21 15:40: Lactic Acid Level 3.87*H 04/19/21 16:08: Glucometer 149H 04/19/21 17:44: Lactic Acid Level 3.63*H 04/19/21 19:42: Lactic Acid Level 3.58*H 04/19/21 19:43: Glucometer 244H 04/20/21 06:28: Glucometer 133H 04/20/21 08:15: White Blood Count 9.8, Red Blood Count 2.77L, Hemoglobin 8.2L, Hematocrit 26L, Mean Corpuscular Volume 92, Mean Corpuscular Hemoglobin 30, Mean Corpuscular Hemoglobin Concent 32, Red Cell Distribution Width 14.3, Platelet Count 198, Mean Platelet Volume 9.9, Sodium Level 137, Potassium Level 4.6, Chloride Level 105, Carbon Dioxide Level 25, Anion Gap 7, Blood Urea Nitrogen 24H, Creatinine 0.94, Estimat Glomerular Filtration Rate 77, BUN/Creatinine Ratio 26, Glucose Level 147H, Calcium Level 8.2L, Corrected Calcium 8.7, Total Bilirubin 0.2, Aspartate Amino Transf (AST/SGOT) 16, Alanine Aminotransferase (ALT/SGPT) 17, Alkaline Phosphatase 47, Total Protein 5.9L, Albumin 3.4, Vancomycin Level Trough 14.0 04/20/21 10:32: Glucometer 176H Microbiology 04/18/21 Blood Culture - Preliminary, Resulted No growth Assessment/Plan Assessment/Plan Assess & Plan/Chief Complaint 1. Acute on Chronic Respiratory Failure--on NC during day and BIPAP at night 2. Sepsis with Respiratory and Metabolic Acidosis--on Vanc and cefepime, lactic acid finally trending down, respiratory acidosis from acute on chronic respiratory failure and metabolic acidosis from sepsis and uncontrolled diabetes 3. Acute Exacerbation of COPD--IV solumedrol and SVNs with duoneb 4. Uncontrolled Diabetes mellitus--insulin requiring, start accuchecks with SSI 5. Hypertension with hypotension on admit--improved 6. 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 Acute on Chronic Respiratory Failure--admit on BiPAP 2. Sepsis with Respiratory and Metabolic Acidosis--Will give IVF resuscitation as well as cover with Vancomycin due to recent MRSA 3. Acute Exacerbation of COPD--IV solumedrol and SVNs with duoneb 4. Uncontrolled Diabetes mellitus--insulin requiring, start accuchecks with SSI 5. Hypertension with current hypotension--hydrate and monitor BP and resume home BP meds when able 6. 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
[2021-04-20 16:53] VITALS: BP 147/72
[2021-04-20 20:01] VITALS: BP 155/71
[2021-04-20] MEDS: MIRTAZAPINE 15 MG (REMERON) TAB PO SCH (20:26)
[2021-04-20] MEDS: MELATONIN 3 MG TABLET PO SCH (20:26)
[2021-04-20] MEDS: GABAPENTIN 600 MG (NEURONTIN) TAB PO SCH (20:26)
[2021-04-20] MEDS: HYDROcodone/APAP 5 MG/325 MG (LORTAB) TAB PO PRN (20:27)
[2021-04-20 20:55] VITALS: BP 146/79
[2021-04-21] VITALS (8 sets, daily range): BP systolic 124–165; BP diastolic 55–81
[2021-04-21] MEDS: methylPREDNISolone 125 MG (Solu-MEDROL) VIAL IVP SCH ×3 (00:23→12:07)
[2021-04-21] MEDS: CEFEPIME 1,000 MG/SWFI 10 ML IV PUSH IV SCH ×8 (00:27→18:03)
[2021-04-21] MEDS: RT-ALBUTEROL SULF 2.5 MG/3 ML PRE-MIX VIAL INH SCH ×6 (01:20→21:41)
[2021-04-21 05:26] LABS: HEMATOCRIT 25 % (40-54); HEMOGLOBIN 8.2 g/dL (13.3-17.7); MEAN CORPUSCULAR HEMOGLOBIN 30 pg (25-34); MEAN CORPUSCULAR HGB CONC 33 g/dL (32-36); MEAN CORPUSCULAR VOLUME 91 fL (80-99); MEAN PLATELET VOLUME 10.1 fL (9.0-12.2); PLATELET COUNT 192 10^3/uL (130-400); WHITE BLOOD COUNT 8.7 10^3/uL (4.3-11.0)
[2021-04-21 05:37] LABS: POTASSIUM 4.4 MMOL/L (3.6-5.0)
[2021-04-21 05:38] LABS: CALCIUM 8.1 MG/DL (8.5-10.1)
[2021-04-21 05:43] LABS: CREATININE SERUM 0.89 MG/DL (0.60-1.30)
[2021-04-21] MEDS: inSUlin ASPART (NovoLOG) 1 UNIT/0.01 ML (CHARGE PER UNIT) SC SCH ×4 (06:00→20:54)
[2021-04-21] MEDS: VENlafaxine XR 75 MG (EFFEXOR XR) CAP PO SCH (06:59)
[2021-04-21] MEDS: 1/2 NS W/KCL 20 MEQ/L 1,000 ML IV SCH ×2 (07:03→20:13)
[2021-04-21] MEDS: PANTOPRAZOLE 40 MG (PROTONIX) TAB PO SCH (09:06)
[2021-04-21] MEDS: ISOSORBIDE MONONITRATE 30 MG (IMDUR) TAB PO SCH (09:06)
[2021-04-21] MEDS: ENOXAPARIN 40 MG/0.4 ML (LOVENOX) SYR SC SCH (09:06)
[2021-04-21] MEDS: VANCOMYCIN 1 GM/NS 250 ML IVPB IV SCH ×4 (09:06→20:08)
--- NOTE | 2021-04-21 13:13 | Progress Note ---
Subjective Date Seen by a Provider: Apr 21, 2021 Time Seen by a Provider: 08:30 Subjective/Events-last exam Fwup acute on chronic respiratory failure, sepis with metabolic and respiratory acidosis, COPD exacerbation, uncontrolled DMII, HTN, Hx of CAD, Right Squamous Cell Carcinoma of Face. C/O coughing up brown phlegm. Focused Exam Lactate Level 04/19/21 15:40: Lactic Acid Level 3.87*H 04/19/21 17:44: Lactic Acid Level 3.63*H 04/19/21 19:42: Lactic Acid Level 3.58*H Objective Exam Vital Signs Date Time Temp Pulse Resp B/P (MAP) Pulse Ox O2 Delivery O2 Flow Rate FiO2 04/21/21 11:26 36.9 65 22 124/58 (80) 98 Nasal Cannula 3.00 04/21/21 10:10 97 High Flow N/C 3.00 04/21/21 09:00 High Flow N/C 3.00 04/21/21 07:34 36.6 85 18 149/69 (95) 99 Nasal Cannula 4.00 04/21/21 06:52 97 Nasal Cannula 3.00 04/21/21 04:00 36.8 58 13 128/67 (87) 100 NIV Bilevel 40.00 04/21/21 01:20 62 15 100 40.00 04/21/21 01:00 61 04/21/21 00:00 36.0 57 16 142/55 (84) 99 Nasal Cannula 04/20/21 21:10 80 04/20/21 20:55 66 22 99 40.00 04/20/21 20:30 High Flow N/C 4.00 04/20/21 20:01 36.4 85 14 155/71 (99) 98 Nasal Cannula 04/20/21 16:53 35.6 65 19 147/72 (97) 99 04/20/21 14:21 95 Nasal Cannula 3.00 04/20/21 14:00 36.5 58 20 146/70 (95) 96 High Flow N/C 5.00 I & O 04/21/21 07:00 Intake Total 1570 ml Output Total 3425 ml Balance -1855 ml Capillary Refill : NONE General Appearance: No Apparent Distress Neck: Supple Respiratory: Lungs Clear, Decreased Breath Sounds Cardiovascular: Regular Rate, Rhythm, Systolic Murmur, Gallop/S4 Gastrointestinal: normal bowel sounds, non tender, soft Extremity: Non Tender, No Calf Tenderness, No Pedal Edema Neurologic/Psychiatric: Alert, Oriented x3 Results Lab Laboratory Tests 04/20/21 16:31: Glucometer 177H 04/20/21 20:34: Glucometer 221H 04/21/21 05:19: White Blood Count 8.7, Red Blood Count 2.76L, Hemoglobin 8.2L, Hematocrit 25L, Mean Corpuscular Volume 91, Mean Corpuscular Hemoglobin 30, Mean Corpuscular Hemoglobin Concent 33, Red Cell Distribution Width 14.3, Platelet Count 192, Mean Platelet Volume 10.1, Sodium Level 140, Potassium Level 4.4, Chloride Level 105, Carbon Dioxide Level 23, Anion Gap 12, Blood Urea Nitrogen 22H, Creatinine 0.89, Estimat Glomerular Filtration Rate 82, BUN/Creatinine Ratio 25, Glucose Level 178H, Calcium Level 8.1L 04/21/21 10:28: Glucometer 184H Microbiology 04/18/21 Blood Culture - Preliminary, Resulted No growth Assessment/Plan Assessment/Plan Assess & Plan/Chief Complaint 1. Acute on Chronic Respiratory Failure--on NC during day and BIPAP at night 2. Sepsis with Respiratory and Metabolic Acidosis--on Vanc and cefepime, lactic acid trending down, respiratory acidosis from acute on chronic respiratory failure and metabolic acidosis from sepsis and uncontrolled diabetes 3. Acute Exacerbation of COPD--Decrease IV solumedrol dose and continue SVNs with duoneb 4. Uncontrolled Diabetes mellitus--insulin requiring, on accuchecks with SSI 5. Hypertension with hypotension on admit--improved 6. 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 Acute on Chronic Anemia--H/H stable Clinical Quality Measures Admission Status Admission Dx 1. Acute on Chronic Respiratory Failure--admit on BiPAP 2. Sepsis with Respiratory and Metabolic Acidosis--Will give IVF resuscitation as well as cover with Vancomycin due to recent MRSA 3. Acute Exacerbation of COPD--IV solumedrol and SVNs with duoneb 4. Uncontrolled Diabetes mellitus--insulin requiring, start accuchecks with SSI 5. Hypertension with current hypotension--hydrate and monitor BP and resume home BP meds when able 6. 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
[2021-04-21] MEDS: methylPREDNISolone 40 MG/ML (Solu-MEDROL) VIAL IV SCH (18:03)
[2021-04-21] MEDS: MELATONIN 3 MG TABLET PO SCH (20:08)
[2021-04-21] MEDS: MIRTAZAPINE 15 MG (REMERON) TAB PO SCH (20:08)
[2021-04-21] MEDS: GABAPENTIN 600 MG (NEURONTIN) TAB PO SCH (20:08)
[2021-04-21] MEDS: HYDROcodone/APAP 5 MG/325 MG (LORTAB) TAB PO PRN (20:08)
[2021-04-22] VITALS: BP 154/110
[2021-04-22] MEDS: CEFEPIME 1,000 MG/SWFI 10 ML IV PUSH IV SCH ×6 (01:49→11:00)
[2021-04-22] MEDS: methylPREDNISolone 40 MG/ML (Solu-MEDROL) VIAL IV SCH ×3 (01:49→11:00)
[2021-04-22] MEDS: RT-ALBUTEROL SULF 2.5 MG/3 ML PRE-MIX VIAL INH SCH ×3 (02:54→11:17)
[2021-04-22 04:00] VITALS: BP 154/72
[2021-04-22 04:30] LABS: HEMOGLOBIN 9.8 g/dL (13.3-17.7); MEAN PLATELET VOLUME 10.1 fL (9.0-12.2); WHITE BLOOD COUNT 12.1 10^3/uL (4.3-11.0)
[2021-04-22] MEDS: VENlafaxine XR 75 MG (EFFEXOR XR) CAP PO SCH (06:15)
[2021-04-22] MEDS: inSUlin ASPART (NovoLOG) 1 UNIT/0.01 ML (CHARGE PER UNIT) SC SCH ×2 (06:23→11:05)
[2021-04-22] MEDS ORDERED: PRD20T PO (10:08)
[2021-04-22] MEDS ORDERED: CEFD300C3 PO (10:08)
[2021-04-22] MEDS: ENOXAPARIN 40 MG/0.4 ML (LOVENOX) SYR SC SCH (10:46)
[2021-04-22] MEDS: PANTOPRAZOLE 40 MG (PROTONIX) TAB PO SCH (10:47)
[2021-04-22] MEDS: 1/2 NS W/KCL 20 MEQ/L 1,000 ML IV SCH (10:47)
[2021-04-22] MEDS: ISOSORBIDE MONONITRATE 30 MG (IMDUR) TAB PO SCH (10:47)
[2021-04-22 11:20] VITALS: BP 156/71
--- NOTE | 2021-04-22 12:05 | Discharge Summary ---
Diagnosis/Chief Complaint Date of Admission Apr 18, 2021 at 20:25 Date of Discharge Discharge Date: Apr 22, 2021 Discharge Diagnosis 1. Acute on Chronic Respiratory Failure--on NC during day and BIPAP at night 2. Sepsis with Respiratory and Metabolic Acidosis--from Respiratory Failur e/Sepsis and Hyperglycemia--improved 3. Acute Exacerbation of COPD--improved, home on oral prednisone taper and SVNS 4. Uncontrolled Diabetes mellitus--insulin requiring, on accuchecks with SSI 5. Hypertension with hypotension on admit--improved 6. 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 Acute on Chronic Anemia--H/H stable Reason Hospital Visit This is a 80 year old male with a history of COPD and chronic respiratory failu re. He was admitted approximately 3 weeks ago with acute on chronic respiratory failure and pneumonia with sepsis--his blood culture grew out MRSA at that time. He states that he has been feeling well until the day of the admission. He reports that he had the sudden onset of shortness of air and when he was found by his family he was down on the floor and diaphoretic. He was brought to the emergency room where his oxygen saturation was found to be 60%. He was placed on BIPAP as well as given IV solumedrol and an hour long nebulizer treatment. He was found to be in both respiratory and metabolic acidosis with sepsis. He will be admitted to the cardiac floor on BiPAP with IV fluid resuscitation as well as IV solumedrol and IV vancomycin. Discharge Summary Hospital Course Was the Problem List Reviewed?: Yes Hospital Course This is a 80 year old male with a history of COPD and chronic respiratory failure. He was admitted approximately 3 weeks ago with acute on chronic respiratory failure and pneumonia with sepsis--his blood culture grew out MRSA at that time. He states that he has been feeling well until the day of the admission. He reports that he had the sudden onset of shortness of air and when he was found by his family he was down on the floor and diaphoretic. He was brought to the emergency room where his oxygen saturation was found to be 60%. He was placed on BIPAP as well as given IV solumedrol and an hour long nebulizer treatment. He was found to be in both respiratory and metabolic acidosis with sepsis. He will be admitted to the cardiac floor on BiPAP with IV fluid resuscitation as well as IV solumedrol and IV vancomycin. Due to ongoing elevation of lactic acid, cefepime was also added to his treatment. He was able to go to a [facility] during the day with BIPAP at night after the first 24hrs of admission. He was initially hypotensive so his BP meds were held but his imdur was restarted on the second hospital day. He was on lovenox for DVT prophylaxis. Once his lactic acid started trending down, his solumedrol was decreased. He tolerated this with no worsening shortness of air. He did continue to get his radiation treatments during his hospital stay. By the time of discharge, his shortness of breath was much improved, he had no fever, his BP was stable and his WBC count was normal. He will be discharged home on cefdinir, prednisone taper, oxygen and continue SVNs with duoneb. He will fwup with il in 1 week. Labs Laboratory Tests 04/19/21 12:45: Arterial Blood Partial Pressure CO2 32L, Arterial Blood HCO3 18L, Arterial Blood Total CO2 19.3L, Arterial Blood Base Excess -5.8L 04/19/21 12:52: Lactic Acid Level 4.26*H 04/19/21 15:40: Lactic Acid Level 3.87*H 04/19/21 16:08: Glucometer 149H 04/19/21 17:44: Lactic Acid Level 3.63*H 04/19/21 19:42: Lactic Acid Level 3.58*H 04/19/21 19:43: Glucometer 244H 04/20/21 06:28: Glucometer 133H 04/20/21 08:15: Red Blood Count 2.77L, Hemoglobin 8.2L, Hematocrit 26L, Blood Urea Nitrogen 24H, Glucose Level 147H, Calcium Level 8.2L, Total Protein 5.9L 04/20/21 10:32: Glucometer 176H 04/20/21 16:31: Glucometer 177H 04/20/21 20:34: Glucometer 221H 04/21/21 05:19: Red Blood Count 2.76L, Hemoglobin 8.2L, Hematocrit 25L, Blood Urea Nitrogen 22H, Glucose Level 178H, Calcium Level 8.1L 04/21/21 10:28: Glucometer 184H 04/21/21 15:46: Glucometer 172H 04/21/21 20:43: Glucometer 194H 04/22/21 04:15: White Blood Count 12.1H, Red Blood Count 3.35L, Hemoglobin 9.8L, Hematocrit 30L 04/22/21 06:21: Glucometer 141H 04/22/21 11:04: Glucometer 165H Procedures None. Discharge Physical Examination Allergies: Coded Allergies: hydrocodone (Verified Adverse Reaction, Mild, NAUSEA, 04/19/21) oxycodone (Verified Adverse Reaction, Mild, NAUSEA, 04/19/21) Vitals & I&Os Vital Signs Date Time Temp Pulse Resp B/P (MAP) Pulse Ox O2 Delivery O2 Flow Rate FiO2 04/22/21 11:20 36.5 75 13 156/71 (99) 96 3.00 04/22/21 11:17 High Flow N/C 04/19/21 01:38 60 General Appearance: Alert, Oriented X3, No Acute Distress Respiratory: Clear to Auscultation Cardiovascular: Regular Rate Abdominal: Normal Bowel Sounds, Soft, No Tenderness Psych/Mental Status: Mental Status NL, Mood NL Discharge Home Medications Reviewed and agree with Discharge Medication list on patient's Discharge Instruction sheet Instructions to Patient/Family Please see electronic discharge instructions given to patient. YVETTE JACKMAN DO Apr 22, 2021 12:05
== END 2021-04-22 12:35 | disposition home or self-care (01) | DRG 871 ==
LOC: EDUNIT# 18:19 → ER 18:20 → CSD 20:25
PROVIDERS: ADMIT Family Medicine; ATTEND Family Medicine
PROC: 5A09457 Assistance with Respiratory Ventilation, 24-96 Consecutive Hours, Continuous Positive Airway Pressure (ICD-10-PCS; principal; 2021-04-18)
DX: A41.9 Sepsis, unspecified organism (principal); J96.21 Acute and chronic respiratory failure with hypoxia; J96.22 Acute and chronic respiratory failure with hypercapnia; J44.1 Chronic obstructive pulmonary disease with (acute) exacerbation; E87.2 Acidosis; J44.9 Chronic obstructive pulmonary disease, unspecified; I25.10 Atherosclerotic heart disease of native coronary artery without angina pectoris; Z20.822 Contact with and (suspected) exposure to COVID-19; E78.00 Pure hypercholesterolemia, unspecified; I10 Essential (primary) hypertension; G20 Parkinson's disease; K21.9 Gastro-esophageal reflux disease without esophagitis; M19.90 Unspecified osteoarthritis, unspecified site; F41.9 Anxiety disorder, unspecified; E11.65 Type 2 diabetes mellitus with hyperglycemia; I95.9 Hypotension, unspecified; C76.0 Malignant neoplasm of head, face and neck; D64.9 Anemia, unspecified; Z79.4 Long term (current) use of insulin; Z79.899 Other long term (current) drug therapy; Z95.5 Presence of coronary angioplasty implant and graft; I25.2 Old myocardial infarction; Z87.891 Personal history of nicotine dependence
CPT/HCPCS: 36410; 36415; 71045; 76937; 77290; 77307; 77334; 80048; 80053; 80202; 82805; 82947; 83605; 83880; 84145; 84484; 85007; 85025; 85027; 85610; 85652; 85730; 86141; 87040; 87636; 93005; 94640; 94660; 96361; 96374; 96375

== ENCOUNTER 2021-04-22 21:00 | Inpatient (IN) | payer MEDICARE ==
[~2021-04-22] VITALS: Ht 175.2 cm; Wt 73.7 kg
[~2021-04-22 21:00] MED LIST changes: +ASPI-1238 PO; +CALC-823 PO; +CYAN50TA3 PO; +SILV50CR28 TP; +TIOT4MIS2 INH
[2021-04-22] MEDS ORDERED: RT-ALBUTEROL SULF 2.5 MG/3 ML PRE-MIX VIAL INH STA (21:58)
[2021-04-22] MEDS ORDERED: methylPREDNISolone 125 MG (Solu-MEDROL) VIAL IVP ONE (22:00)
[2021-04-22] MEDS ORDERED: RT-ALBUTEROL/IPRATROPIUM 3 ML (DUONEB) VIAL INH ONE (22:00)
[2021-04-22 22:10] LABS: BASOPHILS # (AUTO) 0.2 10^3/uL (0.0-0.1); BASOPHILS % (AUTO) 1 % (0-10); EOSINOPHILS % (AUTO) 0 % (0-10); HEMATOCRIT 34 % (40-54); HEMOGLOBIN 10.9 g/dL (13.3-17.7); LYMPHOCYTES # (AUTO) 0.5 10^3/uL (1.0-4.0); LYMPHOCYTES % (AUTO) 3 % (12-44); MEAN CORPUSCULAR HEMOGLOBIN 30 pg (25-34); MEAN CORPUSCULAR HGB CONC 32 g/dL (32-36); MEAN CORPUSCULAR VOLUME 93 fL (80-99); MEAN PLATELET VOLUME 9.9 fL (9.0-12.2); MONOCYTES # (AUTO) 1.2 10^3/uL (0.0-1.0); MONOCYTES % (AUTO) 7 % (0-12); NEUTROPHILS # (AUTO) 12.6 10^3/uL (1.8-7.8); NEUTROPHILS % (AUTO) 77 % (42-75); PLATELET COUNT 296 10^3/uL (130-400); WHITE BLOOD COUNT 16.4 10^3/uL (4.3-11.0)
[2021-04-22 22:19] LABS: ALBUMIN 4.2 GM/DL (3.2-4.5); POTASSIUM 4.5 MMOL/L (3.6-5.0)
[2021-04-22 22:20] LABS: CALCIUM 9.1 MG/DL (8.5-10.1)
[2021-04-22 22:21] LABS: TOTAL PROTEIN 7.3 GM/DL (6.4-8.2)
[2021-04-22 22:23] LABS: BILIRUBIN,TOTAL 0.3 MG/DL (0.1-1.0)
[2021-04-22 22:25] LABS: CREATININE SERUM 1.16 MG/DL (0.60-1.30)
[2021-04-22 22:28] LABS: MAGNESIUM 2.5 MG/DL (1.6-2.4)
[2021-04-22 22:29] LABS: INR 1.1 (0.8-1.4); PROTHROMBIN TIME PATIENT 14.2 SEC (12.2-14.7)
[2021-04-22 22:39] LABS: BAND NEUTROPHILS 1 %; LYMPHOCYTES % (MANUAL) 3 %; METAMYELOCYTES % 10 %; MONOCYTES % (MANUAL) 6 %; NEUTROPHILS % (MANUAL) 80 %
[2021-04-22 22:40] LABS: RBC MORPH NORMAL
[2021-04-22] MEDS ORDERED: LORazepam INJ 2 MG/ML (ATIVAN) VIAL ONE (23:07)
[2021-04-22] MEDS ORDERED: LORazepam INJ 2 MG/ML (ATIVAN) VIAL IV ONE (23:15)
[2021-04-22] MEDS ORDERED: FUROSEMIDE 40 MG/4 ML INJ (LASIX) IVP ONE (23:30)
[2021-04-22 23:57] LABS: ABG BASE EXCESS 0.9 MMOL/L (-2.5-2.5); ABG OXYGEN SATURATION 96 % (94-100); ABG PCO2 42 MMHG (35-45); ABG PO2 72 MMHG (79-93); ABG TCO2 26.7 MMOL/L (21.0-31.0)
[2021-04-22 23:58] LABS: ALLENS TEST YES-POS; INSPIRED O2 5 BIPAP; PATIENT TEMP 36.5; VENTILATOR NO
[2021-04-23] VITALS (8 sets, daily range): BP systolic 136–167; BP diastolic 65–83
[2021-04-23] MEDS ORDERED: ASPIRIN 81 MG CHEW (CHILDREN'S ASA) PO ONE (00:15)
[2021-04-23] MEDS ORDERED: ENOXAPARIN 80 MG/0.8 ML (LOVENOX) SYR SC ONE (00:15)
--- NOTE | 2021-04-23 00:32 | Diagnostic Imaging Report ---
INDICATION: Dyspnea. EXAMINATION: Single AP view of the chest was obtained. COMPARISON: Study of 04/18/2021. FINDINGS: There is bilateral air trapping. Prominent interstitial markings are seen throughout the lungs. No pneumothorax or new infiltrate is seen. IMPRESSION: Background emphysema and probable COPD without new abnormality identified. Dictated by: Dictated on workstation # [id number]
[2021-04-23] MEDS ORDERED: LORazepam INJ 2 MG/ML (ATIVAN) VIAL IVP PRN (01:45)
[2021-04-23] MEDS ORDERED: morphine INJ 4 MG/ML 1 ML (VIAL/SYRINGE) IV PRN (01:45)
[2021-04-23] MEDS ORDERED: NITROGLYCERIN 0.4 MG SL TABS BTL 25'S SL PRN (01:45)
[2021-04-23] MEDS ORDERED: ONDANSETRON 4 MG/2 ML (SDV) Z0FRAN IVP PRN (01:45)
[2021-04-23] MEDS: methylPREDNISolone 125 MG (Solu-MEDROL) VIAL IVP SCH ×3 (04:17→16:07)
[2021-04-23] MEDS ORDERED: RT-ALBUTEROL/IPRATROPIUM 3 ML (DUONEB) VIAL INH PRN (04:45)
[2021-04-23] MEDS: inSUlin ASPART (NovoLOG) 1 UNIT/0.01 ML (CHARGE PER UNIT) SC SCH ×4 (05:41→21:22)
[2021-04-23 05:53] LABS: BASOPHILS # (AUTO) 0.1 10^3/uL (0.0-0.1); BASOPHILS % (AUTO) 1 % (0-10); EOSINOPHILS % (AUTO) 0 % (0-10); HEMATOCRIT 30 % (40-54); HEMOGLOBIN 9.8 g/dL (13.3-17.7); LYMPHOCYTES # (AUTO) 0.3 10^3/uL (1.0-4.0); LYMPHOCYTES % (AUTO) 2 % (12-44); MEAN CORPUSCULAR HEMOGLOBIN 30 pg (25-34); MEAN CORPUSCULAR HGB CONC 33 g/dL (32-36); MEAN CORPUSCULAR VOLUME 91 fL (80-99); MEAN PLATELET VOLUME 10.3 fL (9.0-12.2); MONOCYTES # (AUTO) 0.8 10^3/uL (0.0-1.0); MONOCYTES % (AUTO) 6 % (0-12); NEUTROPHILS # (AUTO) 11.9 10^3/uL (1.8-7.8); NEUTROPHILS % (AUTO) 84 % (42-75); PLATELET COUNT 240 10^3/uL (130-400); WHITE BLOOD COUNT 14.3 10^3/uL (4.3-11.0)
[2021-04-23 06:06] LABS: POTASSIUM 4.1 MMOL/L (3.6-5.0)
[2021-04-23 06:07] LABS: CALCIUM 8.8 MG/DL (8.5-10.1)
[2021-04-23 06:12] LABS: CREATININE SERUM 1.04 MG/DL (0.60-1.30)
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
--- NOTE | 2021-04-23 08:14 | Diagnostic Imaging Report ---
INDICATION: Respiratory failure. TIME OF EXAM: 6:47 AM Correlation is made with prior chest one day earlier. The heart size is normal. The pulmonary vascularity is unremarkable. The lungs are clear. No infiltrate, effusion or pneumothorax is detected. Impression: No acute cardiopulmonary process is detected. Dictated by: Dictated on workstation # [id number]
[2021-04-23] MEDS: RT-ALBUTEROL/IPRATROPIUM 3 ML (DUONEB) VIAL INH SCH ×3 (08:57→20:11)
[2021-04-23] MEDS ORDERED: ENOXAPARIN 80 MG/0.8 ML (LOVENOX) SYR SC SCH (11:00)
[2021-04-23] MEDS: ASPIRIN E.C. 81 MG (ECOTRIN) TAB PO SCH (11:21)
--- NOTE | 2021-04-23 11:29 | Consultation-Cardiology ---
HPI-Cardiology Cardiology Consultation: Date of Consultation 04/23/2021 Date of Admission 04/23/2021 Attending Physician Yvette Barakat DO Admitting Physician Yvette Barakat DO Consulting Physician LUL CLAROS JR, MD HPI: Time Seen by a Provider: 11:24 Chief Complaint: Reason for consultation: Probable non-ST elevation myocardial infarctionFerdinand Reeves is a 80-year-old male with an extensive past cardiac history. 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 He was just here in the hospital earlier in the week with acute respiratory failure felt to be due to an exacerbation of his chronic obstructive pulmonary disease. He was discharged yesterday but upon returning home developed worsening shortness of breath and came back to the emergency room for further evaluation. As part of his evaluation in the emergency room early this morning, a troponin level was drawn which was found to be elevated. As such, a cardiology consultation was requested. He denies any significant chest discomfort. His main complaint has been worsening shortness of breath. He also has some paroxysmal nocturnal dyspnea but denies any orthopnea. He denies palpitations, lightheadedness, s yncope, or ankle edema. Certain portions of this document may have been dictated utilizing voice recognition technology. Inherent to this technology, typographical and grammatical errors may exist. As much as I am diligent to identify and correct these mistakes, some errors may remain in the document. Review of Systems-Cardiology Review of Systems Other comments Review of 10 organ systems is as per the history of present illness, otherwise negative. ALE-Ogbwys-Jhaanl Hx Patient Social History Smoking Status: Former Smoker Former smoker/When Quit: Sep 24, 1994 2nd Hand Smoke Exposure: Yes Have you traveled recently?: No Alcohol Use?: Yes (HISTORY OF ABUSE, NOW ONLY OCCASIONALLY DRINKS) Pt feels they are or have been: No Tobacco type used: Cigarettes Immunizations Up To Date Tetanus Booster (TDap): Unknown Date of Pneumonia Vaccine: Sep 25, 2018 Date of Influenza Vaccine: Sep 25, 2018 Past Medical History PMH As described under Assessment. Family Medical History Family Medical History: He reports his father had CAD, CVA and CHF. His moher had CAD and HTN. Family History: Cancer 09 BROTHER Cancer of colon 09 BROTHER Cataract 03 MOTHER Chest pain 03 MOTHER Congenital heart disease 03 FATHER Congestive heart failure 03 FATHER Family history: Cardiovascular disease 03 FATHER 03 MOTHER Family history: Diabetes mellitus 03 FATHER Family history: Gastrointestinal disease 03 MOTHER Family history: Hypertension 03 MOTHER Hearing loss 03 FATHER Heart disease 03 FATHER History of - respiratory disease 03 FATHER Kidney disease 03 FATHER Myocardial infarction 03 FATHER Stroke 03 FATHER No Family History of: Abdominal aortic aneurysm [place]'s disease Alcoholism Aphasia Cystic fibrosis Dementia Dysphagia Family history: Allergy Family history: Alzheimer's disease Family history: Arthritis Family history: Asthma Family history: Breast disease Family history: Coronary thrombosis Family history: Glaucoma Family history: Osteoporosis Family history: Thyroid disorder Headache Hereditary disease History of - anemia History of - disorder History of drug abuse Human immunodeficiency virus (HIV) seropositivity Hypercholesterolemia Infertile Malignant neoplasm of lung Parkinson's disease Prostate cancer Psychotic disorder Seizure disorder Tuberculosis Visual impairment Allergies and Home Medications Allergies Coded Allergies: hydrocodone (Verified Adverse Reaction, Mild, NAUSEA, 04/19/21) oxycodone (Verified Adverse Reaction, Mild, NAUSEA, 04/19/21) Home Medications Albuterol Sulfate 18 Gm Hfa.aer.ad, 1-2 PUFF INH Q6H PRN for SHORTNESS OF BR EATH, (Reported) Last Action: Reviewed Aspirin 81 Mg Tablet.dr, 81 MG PO HS, (Reported) Last Action: Reviewed Budesonide/Formoterol Fumarate 10.2 Gm Hfa.aer.ad, 2 PUFF IH BID, (Reported) Last Action: Reviewed Calcium Carbonate 500 Mg Tablet, 500 MG PO DAILY, (Reported) Last Action: Reviewed Carbidopa/Levodopa 1 Each Tablet.er, 1 TAB PO TID, (Reported) Last Action: Reviewed Cefdinir 300 Mg Capsule, 300 MG PO BID Prescribed by: YVETTE BARAKAT on 04/22/21 1008 Last Action: Reviewed Cholecalciferol (Vitamin D3) 25 Mcg Capsule, 25 MCG PO DAILY, (Reported) Last Action: Reviewed Cyanocobalamin (Vitamin B-12) 50 Mcg Tablet, 50 MCG PO DAILY, (Reported) Last Action: Reviewed Gabapentin 600 Mg Tablet, 600 MG PO HS, (Reported) Last Action: Reviewed Hydrocodone/Acetaminophen 1 Each Tablet, 1 EA PO Q4H PRN for PAIN-MODERATE (5- 7), (Reported) Last Action: Reviewed Insulin Detemir 100 Unit/1 Ml Insuln.pen, 20 UNIT SQ HS, (Reported) Last Action: Reviewed Isosorbide Mononitrate 30 Mg Tab.er.24h, 30 MG PO DAILY, (Reported) Last Action: Reviewed Losartan Potassium 100 Mg Tablet, 100 MG PO DAILY, (Reported) Last Action: Reviewed Melatonin 3 Mg Tablet, 3-6 MG PO HS PRN for SLEEP, (Reported) Last Action: Reviewed Mirtazapine 15 Mg Tablet, 15 MG PO HS, (Reported) Last Action: Reviewed Montelukast Sodium 10 Mg Tablet, 10 MG PO DAILY, (Reported) Last Action: Reviewed Pantoprazole Sodium 40 Mg Tablet.dr, 40 MG PO DAILY, (Reported) Last Action: Reviewed Prednisone 20 Mg Tab, 20 MG PO DAILY Take 3 tabs(60mg)daily for 3 days then 2 tabs daily for 3 days then 1 tab daily for 3 days Prescribed by: YVETTE BARAKAT on 04/22/21 1008 Last Action: Reviewed Silver Sulfadiazine 50 Gm Cream..g., 1 APPLIC TP BID, (Reported) Last Action: Reviewed Tiotropium [place] 4 Gm Mist.inhal, 2 PUFF INH DAILY, (Reported) Last Action: Reviewed Venlafaxine HCl 150 Mg Cap.er.24h, 150 MG PO DAILY, (Reported) Last Action: Reviewed Patient Home Medication List Home Medication List Reviewed: Yes Exam Vital Signs Vital Signs Date Time Temp Pulse Resp B/P (MAP) Pulse Ox O2 Delivery O2 Flow Rate FiO2 04/23/21 09:03 95 Room Air 04/23/21 08:13 4.00 04/23/21 07:30 36.6 61 20 167/83 (111) 04/23/21 04:24 40 Physical Exam General: Alert. No acute distress. Well nourished and appears stated age. Eye: Extraocular movements are intact. Conjunctivae are clear. There are no xanthelasma. 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 Atraumatic. Carotid pulsations 2/2 without bruits. Neck: Jugular venous pressure does not appear elevated. No thyromegaly appreciated. Respiratory: Lungs have diffusely decreased breath sounds in all lung pow[place]. Respirations are mildly labored. Breath sounds are equal. Symmetrical chest wall expansion. Cardiovascular: Normal rate. Regular rhythm. No murmur. No gallop. Point of maximal impulse is not appear displaced. Good pulses equal in all extremities. No edema. Gastrointestinal: Soft. Normal bowel sounds. Skin: Skin turgor is normal. There is no pallor. Musculoskeletal: No kyphosis or scoliosis appreciated. Neurologic: Alert and oriented to person, place, time. Cranial nerves 3-12 appea r grossly intact. The patient has good motor tone strength in the upper and lower extremities bilaterally. Psychiatric: Cooperative. Appropriate mood & affect. Labs Laboratory Tests Test 04/22/21 21:55 04/22/21 23:33 04/23/21 05:24 04/23/21 05:28 Range/Units White Blood Count 16.4 H 14.3 H 4.3-11.0 10^3/uL Red Blood Count 3.66 L 3.31 L 4.30-5.52 10^6/uL Hemoglobin 10.9 L 9.8 L 13.3-17.7 g/dL Hematocrit 34 L 30 L 40-54 % Mean Corpuscular Volume 93 91 80-99 fL Mean Corpuscular Hemoglobin 30 30 25-34 pg Mean Corpuscular Hemoglobin Concent 32 33 32-36 g/dL Red Cell Distribution Width 14.3 14.5 10.0-14.5 % Platelet Count 296 240 130-400 10^3/uL Mean Platelet Volume 9.9 10.3 9.0-12.2 fL Immature Granulocyte % (Auto) 12 8 % Neutrophils (%) (Auto) 77 H 84 H 42-75 % Lymphocytes (%) (Auto) 3 L 2 L 12-44 % Monocytes (%) (Auto) 7 6 0-12 % Eosinophils (%) (Auto) 0 0 0-10 % Basophils (%) (Auto) 1 1 0-10 % Neutrophils # (Auto) 12.6 H 11.9 H 1.8-7.8 10^3/uL Lymphocytes # (Auto) 0.5 L 0.3 L 1.0-4.0 10^3/uL Monocytes # (Auto) 1.2 H 0.8 0.0-1.0 10^3/uL Eosinophils # (Auto) 0.0 0.0 0.0-0.3 10^3/uL Basophils # (Auto) 0.2 H 0.1 0.0-0.1 10^3/uL Immature Granulocyte # (Auto) 1.9 H 1.2 H 0.0-0.1 10^3/uL Neutrophils % (Manual) 80 % Lymphocytes % (Manual) 3 % Monocytes % (Manual) 6 % Metamyelocytes % 10 % Band Neutrophils 1 % Blood Morphology Comment NORMAL Prothrombin Time 14.2 12.2-14.7 SEC INR Comment 1.1 0.8-1.4 Activated Partial Thromboplast Time 20 L 24-35 SEC Sodium Level 142 142 135-145 MMOL/L Potassium Level 4.5 4.1 3.6-5.0 MMOL/L Chloride Level 101 99 98-107 MMOL/L Carbon Dioxide Level 22 25 21-32 MMOL/L Anion Gap 19 H 18 H 5-14 MMOL/L Blood Urea Nitrogen 28 H 31 H 7-18 MG/DL Creatinine 1.16 1.04 0.60-1.30 MG/DL Estimat Glomerular Filtration Rate 61 69 BUN/Creatinine Ratio 24 30 Glucose Level 238 H 268 H 70-105 MG/DL Calcium Level 9.1 8.8 8.5-10.1 MG/DL Corrected Calcium 8.9 8.5-10.1 MG/DL Magnesium Level 2.5 H 1.6-2.4 MG/DL Total Bilirubin 0.3 0.1-1.0 MG/DL Aspartate Amino Transf (AST/SGOT) 21 5-34 U/L Alanine Aminotransferase (ALT/SGPT) 25 0-55 U/L Alkaline Phosphatase 60 40-136 U/L Troponin I 0.250 H 0.333 *H <0.028 NG/ML B-Type Natriuretic Peptide 739.5 H <100.0 PG/ML Total Protein 7.3 6.4-8.2 GM/DL Albumin 4.2 3.2-4.5 GM/DL Blood Gas Puncture Site R RADIAL Blood Gas Patient Temperature 36.5 Arterial Blood pH 7.40 7.37-7.43 Arterial Blood Partial Pressure CO2 42 35-45 MMHG Arterial Blood Partial Pressure O2 72 L 79-93 MMHG Arterial Blood HCO3 25 23-27 MMOL/L Arterial Blood Total CO2 26.7 21.0-31.0 MMOL/L Arterial Blood Oxygen Saturation 96 94-100 % Arterial Blood Base Excess 0.9 -2.5-2.5 MMOL/L Ahsan Test YES-POS Blood Gas Ventilator Setting NO Blood Gas Inspired Oxygen 5 BIPAP Myoglobin 78.8 10.0-92.0 NG/ML Triglycerides Level 218 H <150 MG/DL Cholesterol Level 224 H < 200 MG/DL LDL Cholesterol Direct 157 H 1-129 MG/DL VLDL Cholesterol 44 H 5-40 MG/DL HDL Cholesterol 50 40-60 MG/DL Glucometer 279 H 70-110 MG/DL Test 04/23/21 10:36 04/23/21 11:10 Range/Units Glucometer 177 H 70-110 MG/DL Radiology Chest x-ray does not show any evidence of pulmonary edema. Echocardiogram showed moderate left ventricular dilatation with mild concentric left ventricular hypertrophy and mild systolic dysfunction with an estimated ejection fraction of 45-50%. Mild left ventricular diastolic dysfunction. The right ventricular function was normal. Possible bicuspid aortic valve. Mild mitral regurgitation. The aortic root was mildly dilated. The estimated pulmonary artery pressure was normal. ECG Impression ECG Comment Sinus rhythm with left ventricular hypertrophy and nonspecific ST depression. No evidence of ST elevation. Diagnosis/Problems Diagnosis/Problems (1) Non-ST elevation myocardial infarction (NSTEMI), initial care episode Assessment & Plan: He is not having any chest pain and does not have any ischemic changes on his electrocardiogram. However, the troponin level has been rising. He now has an additional troponin level pending. If the troponin level is still rising, then I recommend further evaluation with a cardiac catheterization. If the troponin level starts to trend downwards, then we could continue medical therapy and consider noninvasive imaging early next week. I will await the results of the troponin for further evaluation. (2) Cardiomyopathy Assessment & Plan: He has mild left ventricular systolic dysfunction with inferior hypokinesis. Fortunately, his chest x-ray has not shown any evidence of overt pulmonary edema. I will start him on low-dose losartan. I will hold off on starting this until tomorrow in the event he needs a cardiac catheterization today. I do not think he would tolerate a beta-dejon due to his severe chronic obstructive pulmonary disease. (3) Acute on chronic respiratory failure with hypoxia and hypercapnia Status: Acute Assessment & Plan: Most likely related to an exacerbation of his chronic obstructive pulmonary disease and not related to underlying cardiac disease. (4) Essential hypertension Assessment & Plan: As above, I will restart losartan but at a slightly lower dose. We will adjust as his blood pressure will tolerate. (5) Mixed hyperlipidemia Assessment & Plan: It does not appear he has been taking a statin medication at home but his LDL level is quite elevated. I will start intensive dose statin therapy. (6) Type 2 diabetes mellitus with complication Assessment & Plan: This is being managed by the covering primary physician. LUL CLAROS JR, MD Apr 23, 2021 11:29
[2021-04-23] MEDS ORDERED: CATHETER FLUSH 10 ML SYR IV PRN (12:15)
[2021-04-23] MEDS ORDERED: NS IV 1000 ML 1,000 ML IV NR (12:30)
--- NOTE | 2021-04-23 12:31 | History & Physical ---
History of Present Illness History of Present Illness Reason for visit/HPI This is a 80 year old male who was just discharged yesterday after acute on chronic respiratory failure and sepsis. He was doing well on discharge but last night had the sudden onset of shortness of air. He presented back to the emergency room where he was placed on BIPAP and was immediately up to 100% oxygen saturation and feeling better. It was felt that he may not have hooked his BIPAP up correctly but his Troponin and BNP both came back elevated. It was originally thought this was likely a Type II TN from hypoxia but the patient is continuing to be short of air despite oxygen, IV solumedrol, IV lasix and IV antibiotics and his troponin I continues to elevate. He has been admitted to [facility] and cardiology is planning cardiac catheterization due to his history of MV coronary artery disease. Date of Admission Apr 22, 2021 at 23:55 Date Seen by a Provider: Apr 23, 2021 Time Seen by a Provider: 12:26 I consulted on this patient on 04/23/21 12:25 Attending Physician Lita Barakat DO Admitting Physician Lita Barakat DO Consult Allergies and Home Medications Allergies Coded Allergies: hydrocodone (Verified Adverse Reaction, Mild, NAUSEA, 04/19/21) oxycodone (Verified Adverse Reaction, Mild, NAUSEA, 04/19/21) Home Medications Albuterol Sulfate 18 Gm Hfa.aer.ad, 1-2 PUFF INH Q6H PRN for SHORTNESS OF BREATH, (Reported) Last Action: Reviewed Aspirin 81 Mg Tablet.dr, 81 MG PO HS, (Reported) Last Action: Reviewed Budesonide/Formoterol Fumarate 10.2 Gm Hfa.aer.ad, 2 PUFF IH BID, (Reported) Last Action: Reviewed Calcium Carbonate 500 Mg Tablet, 500 MG PO DAILY, (Reported) Last Action: Reviewed Carbidopa/Levodopa 1 Each Tablet.er, 1 TAB PO TID, (Reported) Last Action: Reviewed Cefdinir 300 Mg Capsule, 300 MG PO BID Prescribed by: LITA BARAKAT on 04/22/21 1008 Last Action: Reviewed Cholecalciferol (Vitamin D3) 25 Mcg Capsule, 25 MCG PO DAILY, (Reported) Last Action: Reviewed Cyanocobalamin (Vitamin B-12) 50 Mcg Tablet, 50 MCG PO DAILY, (Reported) Last Action: Reviewed Gabapentin 600 Mg Tablet, 600 MG PO HS, (Reported) Last Action: Reviewed Hydrocodone/Acetaminophen 1 Each Tablet, 1 EA PO Q4H PRN for PAIN-MODERATE (5- 7), (Reported) Last Action: Reviewed Insulin Detemir 100 Unit/1 Ml Insuln.pen, 20 UNIT SQ HS, (Reported) Last Action: Reviewed Isosorbide Mononitrate 30 Mg Tab.er.24h, 30 MG PO DAILY, (Reported) Last Action: Reviewed Losartan Potassium 100 Mg Tablet, 100 MG PO DAILY, (Reported) Last Action: Reviewed Melatonin 3 Mg Tablet, 3-6 MG PO HS PRN for SLEEP, (Reported) Last Action: Reviewed Mirtazapine 15 Mg Tablet, 15 MG PO HS, (Reported) Last Action: Reviewed Montelukast Sodium 10 Mg Tablet, 10 MG PO DAILY, (Reported) Last Action: Reviewed Pantoprazole Sodium 40 Mg Tablet.dr, 40 MG PO DAILY, (Reported) Last Action: Reviewed Prednisone 20 Mg Tab, 20 MG PO DAILY Take 3 tabs(60mg)daily for 3 days then 2 tabs daily for 3 days then 1 tab daily for 3 days Prescribed by: LITA BARAKAT on 04/22/21 1008 Last Action: Reviewed Silver Sulfadiazine 50 Gm Cream..g., 1 APPLIC TP BID, (Reported) Last Action: Reviewed Tiotropium [place] 4 Gm Mist.inhal, 2 PUFF INH DAILY, (Reported) Last Action: Reviewed Venlafaxine HCl 150 Mg Cap.er.24h, 150 MG PO DAILY, (Reported) Last Action: Reviewed Patient Home Medication List Home Medication List Reviewed: Yes Past Sveqtkx-Xbjkpd-Blgjon Hx Patient Social History Marrital Status: Employed/Student: retired Tobacco Use?: Yes (SMOKED 2 1/2 PPD, QUIT 20 YEARS AGO) Tobacco type used: Cigarettes Smoking Status: Former Smoker Use of E-Cig and/or Vaping dev: No Substance use?: No Alcohol Use?: Yes (HISTORY OF ABUSE, NOW ONLY OCCASIONALLY DRINKS) Pt feels they are or have been: No Immunizations Up To Date Date of Influenza Vaccine: Sep 25, 2018 First/Initial COVID19 Vaccinat: 11/14 Second COVID19 Vaccination James: 11/14 Tetanus Booster (TDap): Unknown Hepatitis A: No Hepatitis B: No PED Vaccines UTD: No Date of Pneumonia Vaccine: Sep 25, 2018 Seasonal Allergies Seasonal Allergies: No Current Status Advance Directives: No Communicates: Verbally Primary Language: Korean Preferred Spoken Language: Korean Is interpretation needed?: No Implanted or Applied Medical D: BiPAP, Stents Past Medical History Surgeries: Cardiac, Coronary Stent, Eye Surgery, Orthopedic Pneumonia, Sleep Apnea, COPD Currently Using CPAP: Yes Currently Using BIPAP: No Coronary Artery Disease, Heart Attack, High Cholesterol, Hypertension Parkinson's Disease Sexually Transmitted Disease: No HIV/AIDS: No Gastroesophageal Reflux Arthritis, Fractures Diabetes, Insulin dep Cataract Loss of Vision: Bilateral Hearing Impairment: Hard of Hearing Skin Did You Recieve Any Treatments: Yes What Type of Treatment Did You: Surgical Intervention Anxiety Eczema Blood Disorders: No Adverse Reaction/Blood Tranf: No Family Medical History Cancer 09 BROTHER Cancer of colon 09 BROTHER Cataract 03 MOTHER Chest pain 03 MOTHER Congenital heart disease 03 FATHER Congestive heart failure 03 FATHER Family history: Cardiovascular disease 03 FATHER 03 MOTHER Family history: Diabetes mellitus 03 FATHER Family history: Gastrointestinal disease 03 MOTHER Family history: Hypertension 03 MOTHER Hearing loss 03 FATHER Heart disease 03 FATHER History of - respiratory disease 03 FATHER Kidney disease 03 FATHER Myocardial infarction 03 FATHER Stroke 03 FATHER No Family History of: Abdominal aortic aneurysm [place]'s disease Alcoholism Aphasia Cystic fibrosis Dementia Dysphagia Family history: Allergy Family history: Alzheimer's disease Family history: Arthritis Family history: Asthma Family history: Breast disease Family history: Coronary thrombosis Family history: Glaucoma Family history: Osteoporosis Family history: Thyroid disorder Headache Hereditary disease History of - anemia History of - disorder History of drug abuse Human immunodeficiency virus (HIV) seropositivity Hypercholesterolemia Infertile Malignant neoplasm of lung Parkinson's disease Prostate cancer Psychotic disorder Seizure disorder Tuberculosis Visual impairment LONG HISTORY OF NON-COMPLIANCE PT IS DNR/DNI, VERBAL PER PT ON 04/18/21 Review of Systems Constitutional: weakness EENTM: No see HPI, No no symptoms reported, No ear discharge, No hearing loss, No ear pain, No blurred vision, No double vision, No eye pain, No tearing, No vision loss, No dental problems, No hoarseness, No mouth pain, No mouth swelling, No epistaxis, No nose congestion, No nose pain, No throat pain, No throat swelling, No other Respiratory: dyspnea on exertion, short of breath Cardiovascular: vascular heart diseas Gastrointestinal: No RUQ, No LUQ, No RLQ, No LLQ, No no symptoms reported, No see HPI, No abdominal pain, No constipation, No diarrhea, No dysphagia, No hematemesis, No heartburn, No jaundice, No loss of appetite, No melena, No nausea, No vomiting, No other Genitourinary: No no symptoms reported, No see HPI, No decreased output, No discharge, No dysuria, No frequency, No hematuria, No hesitancy, No incontinence, No nocturia, No pain, No other Skin: hx of skin cancer Psychiatric/Neurological: Paresthesia, Weakness Physical Exam Vital Signs Vital Signs - First Documented 04/22/21 04/22/21 04/23/21 22:16 22:58 00:42 Temp 36.5 Pulse 125 Resp 34 B/P (MAP) 115/65 (82) Pulse Ox 98 O2 Delivery Nasal Cannula O2 Flow Rate 5.00 FiO2 99 Capillary Refill : Less Than 3 Seconds Height, Weight, BMI Height: 6'0.00" Weight: 204lbs. 9.0oz. [id number]; 24.85 BMI Method:Stated General Appearance: Moderate Distress (respiratory) Respiratory: Lungs Clear, Decreased Breath Sounds, Respiratory Distress Cardiovascular: Regular Rate, Rhythm, Systolic Murmur, Gallop/S4 Gastrointestinal: Normal Bowel Sounds, Non Tender, Soft Rectal: Deferred Back: No CVA Tenderness Extremity: Non Tender, No Calf Tenderness, No Pedal Edema Neurologic/Psychiatric: Alert, Oriented x3 Skin: Warm/Dry Assessment/Plan Assessment and Plan 1. Acute on Chronic Respiratory Failure--admitted on BIPAP but now on NC--will resume BIPAP q HS and NC during day 2. 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 Acute NSTEM with history of MV CAD--Troponin I continues to elevate so plan is for cardiac cath 4. Recent Sepsis--restarted IV abx 5. COPD with acute exacerbation--restarted IV solumedrol 6. DMII--insulin requiring--on accuchecks with SSI Admission Diagnosis Admission Status: Inpatient Order (span 2 midnights) Reason for Inpatient Admission: Will need IV abx, IV solumedrol and cardiac intervention LITA BARAKAT DO Apr 23, 2021 12:31
[2021-04-23] MEDS ORDERED: fentaNYL INJ 100 MCG/2 ML AMP ONE (12:58)
[2021-04-23] MEDS ORDERED: MIDAZOLAM 5 MG/5 ML (VERSED) VIAL ONE (12:58)
[2021-04-23] MEDS ORDERED: VERAPAMIL 5 MG/2 ML (CALAN) VIAL IV ONE (12:58)
[2021-04-23] MEDS ORDERED: HEParin 1000 UNIT/ML (10ML VIAL) FOR BOLUS ONE (12:59)
[2021-04-23] MEDS ORDERED: HEParin (CATH LAB) 2,000 ML IV ONE (12:59)
[2021-04-23] MEDS ORDERED: LIDOCAINE 1% INJ 20 ML 20 ML VIAL ONE (12:59)
[2021-04-23] MEDS ORDERED: NITRO DRIP 25000 MCG/D5W 250 ML IV ONE (12:59)
[2021-04-23] MEDS ORDERED: NS IV 1000 ML 1,000 ML ONE (13:00)
[2021-04-23] MEDS ORDERED: ADENOSINE 6 MG/2 ML (ADENOCARD) VIAL IV ONE (13:50)
[2021-04-23] MEDS ORDERED: NS (IVPB) 250 ML ONE (13:51)
[2021-04-23] MEDS ORDERED: TICAGRELOR 90 MG TABLET (BRILINTA) PO ONE (14:04)
[2021-04-23] MEDS ORDERED: PATIENT MAY USE OWN MEDS, ALL PO SCH (14:30)
[2021-04-23] MEDS ORDERED: NS IV 1000 ML 1,000 ML IV SCH (14:30)
--- NOTE | 2021-04-23 14:48 | Cardiac Cath Report ---
CARDIAC CATHETERIZATION DATE OF PROCEDURE: 04/23/2021 INDICATION: Non-ST elevation myocardial infarction. HISTORY: The patient is a 80 year old male with an extensive past cardiac history who underwent coronary stents to all three epicardial vessels at [facility] in [place], [place] in 2016. He was admitted to our hospital with acute respiratory failure. During his evaluation, troponin levels were obtained. The first troponin level was abnormal. The next two troponin levels were continuing to climb. As such, he is now referred for further evaluation with a cardiac catheterization. PROCEDURES PERFORMED: 1. Diagnostic zuni coronary angiography. 2. Fractional flow reserve measurement of distal left anterior descending cor onary artery. 3. Drug-eluting stent placement to distal left anterior descending coronary artery. PROCEDURE DESCRIPTION: Left heart catheterization was performed through the right radial artery utilizing a Six Colombian system by percutaneous approach. Sta ndard 5 Colombian Demi catheters were utilized for the diagnostic portion of the procedure. A 6 [place]ian EBU guide catheter was utilized for the percutaneous intervention. All catheters were exchanged over a guidewire. RESULTS: HEMODYNAMICS: The aortic pressure was 112/68 mmHg. The aortic valve was not crossed. CORONARY ANGIOGRAPHY: Left main coronary artery: Calcified but free of significant disease. Left anterior descending coronary artery: There were stents extending from the proximal down to the distal segment which were patent with minimal neointimal hyperplasia. There was a 70% stenosis in the distal segment with JULIA-3 flow.. Left circumflex coronary artery: There was mild disease in the proximal and mid portions of the vessel at no more than 30% stenotic. There appeared to be two stents in the distal segment which were patent. There was a moderate sized first obtuse marginal branch which contained 90% stenosis in its midportion. According to the report from his previous intervention, an attempt was made to open this branch but was not successful. As such, I elected not to attempt intervention on this branch. Right coronary artery: Dominant and there was stents from the proximal down to the distal segment which were patent with minimal neointimal hyperplasia. The vessel bifurcated just distal to the most distal stent. There was approximately a 90% stenosis in the proximal segment of the posterior descending artery but this was a small vessel measuring no more than 1.5 mm in maximal diameter. The posterolateral branches also contained moderate to severe diffuse disease but were very small in caliber. FRACTIONAL FLOW RESERVE: Fractional flow reserve was carried out on the distal left anterior descending coronary artery through a 6 Colombian EBU guide catheter. A [place] FFR wire was advanced into the guide catheter and the system was equalized. I subsequently crossed the stenosis with the wire. 75 mcg of intracoronary adenosine was then administered. The minimum FFR was approximately 0.65. This is highly hemodynamically significant. As such, I elected to proceed with percutaneous coronary intervention. PERCUTANEOUS CORONARY INTERVENTION: Percutaneous coronary intervention was carried out on the distal left anterior descending coronary artery through the same guide catheter over the [employer] [place] FFR wire. I first performed coronary angioplasty with a 2.5 x 12 mm Trek balloon at a pressure of 14 dev. I subsequently performed coronary stent placement with a 2.5 x 18 mm drug-eluting Xience Loretta stent at a pressure of 16 dev. Following stent placement, there was 0% residual stenosis with JULIA-3 flow. IMPRESSION: 1. Normal central aortic pressure. 2. Patent stents in the left anterior descending, left circumflex, and right coronary arteries with minimal neointimal hyperplasia as outlined above. 3. There was a 70% stenosis in the distal left anterior descending coronary artery distal to the previously placed stents. 4. Fractional flow reserve measurement of the lesion in the distal left anterior descending coronary artery was highly hemodynamically significant at 0.65. 5. Status post drug-eluting stent placement to the distal left anterior descending coronary artery with a 2.5 x 18 mm Xience Loretta stent with 0% residual stenosis and JULIA-3 flow. 6. The patient is known to have mild left ventricular systolic dysfunction with an estimated ejection fraction of 45-50% by echocardiogram performed earlier today. Certain portions of this document may have been dictated utilizing voice recognition technology. Inherent to this technology, typographical and grammatical errors may exist. As much as I am diligent to identify and correct these mistakes, some errors may remain in the document. LUL CLAROS JR, MD Apr 23, 2021 14:48
[2021-04-23] MEDS: NS IV 1000 ML 1,000 ML IV SCH (16:07)
[2021-04-23] MEDS: ROSUVASTATIN 20 MG (CRESTOR) TABLET PO SCH (20:37)
[2021-04-23] MEDS: TICAGRELOR 90 MG TABLET (BRILINTA) PO SCH (20:37)
[2021-04-23] MEDS ORDERED: ENOXAPARIN 40 MG/0.4 ML (LOVENOX) SYR ONE (22:29)
[2021-04-23] MEDS ORDERED: ENOXAPARIN 40 MG/0.4 ML (LOVENOX) SYR SC SCH (22:30)
[2021-04-24] MEDS: RT-ALBUTEROL/IPRATROPIUM 3 ML (DUONEB) VIAL INH SCH ×4 (02:55→21:23)
[2021-04-24] MEDS: NS IV 1000 ML 1,000 ML IV SCH (03:14)
[2021-04-24 04:02] VITALS: BP 156/65
[2021-04-24] MEDS: inSUlin ASPART (NovoLOG) 1 UNIT/0.01 ML (CHARGE PER UNIT) SC SCH ×5 (06:15→21:11)
[2021-04-24 07:30] VITALS: BP 144/52
[2021-04-24] MEDS: TICAGRELOR 90 MG TABLET (BRILINTA) PO SCH (08:40)
[2021-04-24] MEDS: LOSARTAN 25 MG (COZAAR) TAB PO SCH (08:40)
[2021-04-24] MEDS: ASPIRIN E.C. 81 MG (ECOTRIN) TAB PO SCH (08:40)
[2021-04-24] MEDS ORDERED: methylPREDNISolone 40 MG/ML (Solu-MEDROL) VIAL IV ONE (09:45)
--- NOTE | 2021-04-24 09:58 | Progress Note ---
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 Sitting up in bed--states feels much better. Objective Exam Vital Signs Date Time Temp Pulse Resp B/P (MAP) Pulse Ox O2 Delivery O2 Flow Rate FiO2 04/24/21 09:29 98 Nasal Cannula 4.00 04/24/21 08:00 NIV Bilevel 4.00 04/24/21 07:30 37.2 94 20 144/52 (82) 100 NIV Bilevel 4.00 04/24/21 07:00 66 04/24/21 04:02 36.1 66 20 156/65 (95) 97 NIV Bilevel 4.00 04/24/21 02:55 94 NIV Bilevel 4.00 04/24/21 01:00 87 04/23/21 23:05 36.0 64 20 162/71 (101) 95 NIV Bilevel 4.00 04/23/21 20:40 NIV Bilevel 4.00 04/23/21 20:11 94 NIV Bilevel 4.00 04/23/21 19:00 36.6 60 24 159/70 (99) 100 NIV CPAP 04/23/21 19:00 86 04/23/21 17:00 143/78 (99) NIV CPAP 04/23/21 12:54 80 04/23/21 11:31 37.2 73 20 166/74 (104) 100 Nasal Cannula 3.50 I & O 04/24/21 07:00 Intake Total 750 ml Output Total 1475 ml Balance -725 ml Capillary Refill : Less Than 3 Seconds General Appearance: Mild Distress (tachypnea) Respiratory: Lungs Clear Cardiovascular: Regular Rate, Rhythm, Systolic Murmur Gastrointestinal: normal bowel sounds, non tender, soft Extremity: Non Tender, No Calf Tenderness, No Pedal Edema Neurologic/Psychiatric: Alert, Oriented x3 Results Lab Laboratory Tests 04/23/21 10:36: Glucometer 177H 04/23/21 11:10: Troponin I 0.348*H 04/23/21 15:49: Glucometer 185H 04/23/21 21:08: Glucometer 192H 04/24/21 05:47: Glucometer 134H Assessment/Plan Assessment/Plan Assess & Plan/Chief Complaint 1. Acute on Chronic Respiratory Failure--on BIPAP q HS and NC during day 2. Acute on Chronic Combined Diastolic and Systolic CHF--will give oral lasix and K 3. Acute NSTEMI with history of MV CAD--S/P stent to LAD 4. Recent Sepsis--start zosyn 5. COPD with acute exacerbation--IV solumedrol and SVNs with duoneb 6. DMII--insulin requiring--on accuchecks with SSI Clinical Quality Measures Admission Status Admission Dx 1. Acute on Chronic Respiratory Failure--admitted on BIPAP but now on NC--will resume BIPAP q HS and NC during day 2. 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 Acute NSTEM with history of MV CAD--Troponin I continues to elevate so plan is for cardiac cath 4. Recent Sepsis--restarted IV abx 5. COPD with acute exacerbation--restarted IV solumedrol 6. DMII--insulin requiring--on accuchecks with SSI YVETTE JACKMAN DO Apr 24, 2021 09:58
[2021-04-24] MEDS ORDERED: FUROSEMIDE 40 MG (LASIX) TAB PO ONE (10:00)
[2021-04-24] MEDS ORDERED: PIPERACILLIN/TAZOBACTAM (BULK) 4.5 GM in NS (IVPB) 100 ML IV SCH (10:00)
[2021-04-24] MEDS ORDERED: KCL 20 MEQ TAB (K-DUR) PO ONE (10:00)
--- NOTE | 2021-04-24 11:25 | Cardiology Progress Note ---
Progress Note-Cardiology Events since last exam Date Seen by Provider: Apr 24, 2021 Time Seen by Provider: 11:20 Events since last exam We are seeing him due to NSTEMI and now atrial fibrillation. This morning he states that his breathing is 100% better. He denies chest discomfort, palpitations, syncope, or ankle edema. Certain portions of this document may have been dictated utilizing voice recognition technology. Inherent to this technology, typographical and grammatical errors may exist. As much as I am diligent to identify and correct these mistakes, some errors may remain in the document. Vitals Last set of Vitals Signs Vital Signs 04/23/21 04/24/21 04/24/21 04:24 07:30 09:29 Temp 37.2 Pulse 94 Resp 20 B/P (MAP) 144/52 (82) Pulse Ox 98 O2 Delivery Nasal Cannula O2 Flow Rate 4.00 FiO2 40 Exam Vital Signs Vital Signs Date Time Temp Pulse Resp B/P (MAP) Pulse Ox O2 Delivery O2 Flow Rate FiO2 04/24/21 09:29 98 Nasal Cannula 4.00 04/24/21 07:30 37.2 94 20 144/52 (82) 04/23/21 04:24 40 Physical Exam General: Alert. No acute distress. Eye: No xanthelasma. HENT: Normocephalic. Neck: Jugular venous pressure does not appear elevated. Respiratory: Lungs Have diffusely decreased breath sounds with some scattered wheezes. Respirations are non-labored. Breath sounds are equal. Symmetrical chest wall expansion. Cardiovascular: Normal rate. Irregular rhythm. Distant S1/S2. No murmur. No gallop. No edema. Gastrointestinal: Soft. Normal bowel sounds. Skin: Warm. Dry. Neurologic: Alert and oriented to person, place, time. Cranial nerves 3-11 grossly intact. Psychiatric: Cooperative. Appropriate mood & affect. Labs Laboratory Tests Test 04/23/21 15:49 04/23/21 21:08 04/24/21 05:47 04/24/21 10:42 Range/Units Glucometer 185 H 192 H 134 H 105 70-110 MG/DL Radiology ELECTROCARDIOGRAM: Atrial fibrillation with a well-controlled ventricular rate with left ventricular hypertrophy. Diagnosis/Problems Diagnosis/Problems (1) Non-ST elevation myocardial infarction (NSTEMI), initial care episode Assessment & Plan: He is Now status post drug-eluting stent placement to the distal left anterior descending coronary artery. His previously placed stents were all patent. I had started the patient on ticagrelor. However, in light of his atrial fibrillation,I will change this over to clopidogrel as the studies looking at post intervention anticoagulation in the setting of atrial fibrillation primarily used clopidogrel and not ticagrelor as the antiplatelet agent. I will also start him on apixaban 5 mg twice daily. I will stop the enoxaparin. We will continue aspirin for the time being and when he is discharged, I suggest the combination of clopidogrel and apixaban without aspirin. Given that he has not been given any clopidogrel during this hospitalization, he will need a 600 mg loading dose. (2) Paroxysmal atrial fibrillation Assessment & Plan: I did not see that he has any history of atrial fibrillation. Yesterday he was having very frequent premature supraventricular complexes. However, this morning he clearly seems to be in atrial fibrillation. I will adjust his antiplatelet/anticoagulant medications as above. His heart rate is well controlled on no AV libby blocking agents. I will obtain a follow- up electrocardiogram tomorrow. He does not seem to be symptomatic with this. This raises a concern that he could be having paroxysmal atrial fibrillation at home. As such, I do not recommend cardioversion at this time. 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 (3) Cardiomyopathy Assessment & Plan: He has mild left ventricular systolic dysfunction with inferior hypokinesis. Fortunately, his chest x-rays have not shown any evidence of overt pulmonary edema. Continue losartan. He is not a good candidate for beta-dejon due to his severe underlying pulmonary disease. (4) Acute on chronic respiratory failure with hypoxia and hypercapnia Status: Acute Assessment & Plan: Most likely related to an exacerbation of his chronic obstructive pulmonary disease and not related to underlying cardiac disease. His regular primary physician is managing this condition. (5) Essential hypertension Assessment & Plan: Continue losartan. His blood pressures are intermittently elevated. If this persists, we can probably increase the losartan back to his outpatient dose. I started with a lower dose due to some softer blood pressures on the day of admission. (6) Mixed hyperlipidemia Assessment & Plan: Continue intensive dose statin in light of the acute myocardial infarction LUL CLAROS JR, MD Apr 24, 2021 11:25
[2021-04-24] MEDS ORDERED: CLOPIDOGREL 300 MG (PLAVIX) TABLET PO ONE (11:30)
[2021-04-24] MEDS ORDERED: PANTOPRAZOLE 40 MG (PROTONIX) TAB PO ONE (11:30)
[2021-04-24 12:00] VITALS: BP 148/62
[2021-04-24] MEDS: SINEMET CR 50/200 (CARBIDOPA/LEVODOPA SA) TAB PO SCH ×2 (12:04→20:41)
[2021-04-24] MEDS: methylPREDNISolone 40 MG/ML (Solu-MEDROL) VIAL IV SCH ×3 (12:04→23:23)
[2021-04-24 16:16] VITALS: BP 143/66
[2021-04-24] MEDS: PIPERACILLIN/TAZOBACTAM (BULK) 4.5 GM in NS (IVPB) 100 ML IV SCH ×2 (17:00→23:23)
[2021-04-24 19:41] VITALS: BP 140/57
[2021-04-24] MEDS: ROSUVASTATIN 20 MG (CRESTOR) TABLET PO SCH (20:41)
[2021-04-24] MEDS: APIXABAN 5 MG (ELIQUIS) TABLET PO SCH (20:41)
[2021-04-24] MEDS ORDERED: GABAPENTIN 600 MG (NEURONTIN) TAB PO SCH (21:00)
[2021-04-24] MEDS ORDERED: MIRTAZAPINE 15 MG (REMERON) TAB PO SCH (21:00)
[2021-04-24] MEDS: RT--FLUTICASONE/SALMETEROL 232-14 (AIRDUO RespiCLICK) IH SCH (21:28)
[2021-04-24 23:17] VITALS: BP 114/61
[2021-04-25] MEDS: RT-ALBUTEROL/IPRATROPIUM 3 ML (DUONEB) VIAL INH SCH ×2 (03:04→08:13)
[2021-04-25 03:14] VITALS: BP 110/52
[2021-04-25] MEDS: inSUlin ASPART (NovoLOG) 1 UNIT/0.01 ML (CHARGE PER UNIT) SC SCH ×2 (05:51→11:54)
[2021-04-25] MEDS: methylPREDNISolone 40 MG/ML (Solu-MEDROL) VIAL IV SCH ×2 (06:05→12:01)
[2021-04-25 06:38] LABS: BASOPHILS % (AUTO) 0 % (0-10); EOSINOPHILS % (AUTO) 0 % (0-10); HEMATOCRIT 38 % (40-54); HEMOGLOBIN 12.3 g/dL (13.3-17.7); LYMPHOCYTES # (AUTO) 0.3 10^3/uL (1.0-4.0); LYMPHOCYTES % (AUTO) 2 % (12-44); MEAN CORPUSCULAR HEMOGLOBIN 30 pg (25-34); MEAN CORPUSCULAR HGB CONC 32 g/dL (32-36); MEAN CORPUSCULAR VOLUME 92 fL (80-99); MEAN PLATELET VOLUME 9.9 fL (9.0-12.2); MONOCYTES # (AUTO) 0.7 10^3/uL (0.0-1.0); MONOCYTES % (AUTO) 5 % (0-12); NEUTROPHILS # (AUTO) 11.8 10^3/uL (1.8-7.8); NEUTROPHILS % (AUTO) 85 % (42-75); PLATELET COUNT 224 10^3/uL (130-400); WHITE BLOOD COUNT 13.8 10^3/uL (4.3-11.0)
[2021-04-25] MEDS ORDERED: VENlafaxine XR 75 MG (EFFEXOR XR) CAP PO SCH (07:00)
[2021-04-25 07:07] LABS: POTASSIUM 4.6 MMOL/L (3.6-5.0)
[2021-04-25 07:08] LABS: CALCIUM 8.9 MG/DL (8.5-10.1)
[2021-04-25 07:09] LABS: TOTAL PROTEIN 7.2 GM/DL (6.4-8.2)
[2021-04-25 07:11] LABS: BILIRUBIN,TOTAL 0.5 MG/DL (0.1-1.0)
[2021-04-25 07:13] LABS: CREATININE SERUM 1.13 MG/DL (0.60-1.30)
[2021-04-25 07:40] VITALS: BP 142/61
[2021-04-25] MEDS: RT--FLUTICASONE/SALMETEROL 232-14 (AIRDUO RespiCLICK) IH SCH (08:12)
[2021-04-25] MEDS: LOSARTAN 25 MG (COZAAR) TAB PO SCH (08:35)
[2021-04-25] MEDS: ASPIRIN E.C. 81 MG (ECOTRIN) TAB PO SCH (08:35)
[2021-04-25] MEDS: APIXABAN 5 MG (ELIQUIS) TABLET PO SCH (08:36)
[2021-04-25] MEDS: PIPERACILLIN/TAZOBACTAM (BULK) 4.5 GM in NS (IVPB) 100 ML IV SCH (08:38)
[2021-04-25] MEDS: SINEMET CR 50/200 (CARBIDOPA/LEVODOPA SA) TAB PO SCH ×2 (08:38→12:01)
[2021-04-25] MEDS ORDERED: LOSA25TA41 PO (08:39)
[2021-04-25] MEDS ORDERED: ROSU20TA32 PO (08:39)
[2021-04-25] MEDS ORDERED: MONTELUKAST 10 MG (SINGULAIR) TAB PO SCH (09:00)
[2021-04-25] MEDS ORDERED: ISOSORBIDE MONONITRATE 30 MG (IMDUR) TAB PO SCH (09:00)
[2021-04-25] MEDS ORDERED: CLOPIDOGREL 75 MG (PLAVIX) TABLET PO SCH (09:00)
[2021-04-25] MEDS ORDERED: PANTOPRAZOLE 40 MG (PROTONIX) TAB PO SCH ×2 (09:00)
--- NOTE | 2021-04-25 09:42 | Cardiology Progress Note ---
Progress Note-Cardiology Events since last exam Date Seen by Provider: Apr 25, 2021 Time Seen by Provider: 09:36 Events since last exam I am seeing him due to NSTEMI and atrial fibrillation. He is sitting up in bed eating breakfast. He denies any chest discomfort. He states his breathing is improved. He has not yet gotten up to ambulate. Normally, he walks at home without any assistance of a cane or walker. He denies palpitations, syncope, or ankle edema. His regular outpatient primary provider plans to discharge him today. Certain portions of this document may have been dictated utilizing voice re cognition technology. Inherent to this technology, typographical and grammatical errors may exist. As much as I am diligent to identify and correct these mistakes, some errors may remain in the document. Vitals Last set of Vitals Signs Vital Signs 04/23/21 04/25/21 04/25/21 04:24 07:40 08:13 Temp 36.2 Pulse 67 Resp 18 B/P (MAP) 142/61 (88) Pulse Ox 100 O2 Delivery Nasal Cannula O2 Flow Rate 4.00 FiO2 40 Labs Labs Laboratory Tests 04/25/21 06:13 04/25/21 06:15 Exam Vital Signs Vital Signs Date Time Temp Pulse Resp B/P (MAP) Pulse Ox O2 Delivery O2 Flow Rate FiO2 04/25/21 08:13 100 Nasal Cannula 4.00 04/25/21 07:40 36.2 67 18 142/61 (88) 04/23/21 04:24 40 Physical Exam General: Alert. No acute distress. Eye: No xanthelasma. HENT: He has a moderate sized basal cell carcinoma on his right ear. Neck: Jugular venous pressure does not appear elevated. Respiratory: Lungs are clear to auscultation. Respirations are non-labored. Breath sounds are equal. Symmetrical chest wall expansion. Cardiovascular: Normal rate. Regular rhythm. No murmur. No gallop. No edema. Gastrointestinal: Soft. Normal bowel sounds. Skin: Warm. Dry. Neurologic: Alert and oriented to person, place, time. Cranial nerves 3-11 grossly intact. Psychiatric: Cooperative. Appropriate mood & affect. Labs Laboratory Tests Test 04/24/21 10:42 04/24/21 16:18 04/24/21 20:59 04/25/21 05:36 Range/Units Glucometer 105 239 H 212 H 105 70-110 MG/DL Test 04/25/21 06:13 04/25/21 06:15 Range/Units White Blood Count 13.8 H 4.3-11.0 10^3/uL Red Blood Count 4.15 L 4.30-5.52 10^6/uL Hemoglobin 12.3 #L 13.3-17.7 g/dL Hematocrit 38 L 40-54 % Mean Corpuscular Volume 92 80-99 fL Mean Corpuscular Hemoglobin 30 25-34 pg Mean Corpuscular Hemoglobin Concent 32 32-36 g/dL Red Cell Distribution Width 14.7 H 10.0-14.5 % Platelet Count 224 130-400 10^3/uL Mean Platelet Volume 9.9 9.0-12.2 fL Immature Granulocyte % (Auto) 7 % Neutrophils (%) (Auto) 85 H 42-75 % Lymphocytes (%) (Auto) 2 L 12-44 % Monocytes (%) (Auto) 5 0-12 % Eosinophils (%) (Auto) 0 0-10 % Basophils (%) (Auto) 0 0-10 % Neutrophils # (Auto) 11.8 H 1.8-7.8 10^3/uL Lymphocytes # (Auto) 0.3 L 1.0-4.0 10^3/uL Monocytes # (Auto) 0.7 0.0-1.0 10^3/uL Eosinophils # (Auto) 0.0 0.0-0.3 10^3/uL Basophils # (Auto) 0.0 0.0-0.1 10^3/uL Immature Granulocyte # (Auto) 1.0 H 0.0-0.1 10^3/uL Sodium Level 140 135-145 MMOL/L Potassium Level 4.6 3.6-5.0 MMOL/L Chloride Level 100 98-107 MMOL/L Carbon Dioxide Level 25 21-32 MMOL/L Anion Gap 15 H 5-14 MMOL/L Blood Urea Nitrogen 37 H 7-18 MG/DL Creatinine 1.13 0.60-1.30 MG/DL Estimat Glomerular Filtration Rate 63 BUN/Creatinine Ratio 33 Glucose Level 91 70-105 MG/DL Calcium Level 8.9 8.5-10.1 MG/DL Corrected Calcium 8.9 8.5-10.1 MG/DL Total Bilirubin 0.5 0.1-1.0 MG/DL Aspartate Amino Transf (AST/SGOT) 20 5-34 U/L Alanine Aminotransferase (ALT/SGPT) 6 0-55 U/L Alkaline Phosphatase 53 40-136 U/L Total Protein 7.2 6.4-8.2 GM/DL Albumin 4.0 3.2-4.5 GM/DL Radiology ELECTROCARDIOGRAM: Sinus bradycardia at 59 bpm with left ventricular hypertrophy. Diagnosis/Problems Diagnosis/Problems (1) Non-ST elevation myocardial infarction (NSTEMI), initial care episode Assessment & Plan: He is now status post drug-eluting stent placement to the distal left anterior descending coronary artery on 04/23/2021. His symptom prior to the stent was dyspnea which has improved. His previously placed stents were all patent. Given the atrial fibrillation that developed the day following the coronary stent, I made changes to his antiplatelet/anticoagulant therapy. He should be discharged on clopidogrel 75 mg once daily and apixaban 5 mg twice daily. Aspirin should be discontinued. I already discontinued ticagrelor. 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 (2) Paroxysmal atrial fibrillation Assessment & Plan: He seemed to be asymptomatic with this. He is now back in a sinus rhythm. His heart rate is well controlled. As above, given the non-ST elevation myocardial infarction treated with a drug-eluting stent during this hospitalization and to the atrial fibrillation, he should be discharged home on clopidogrel and apixaban without aspirin. The data on the use of ticagrelor with a DOAC is very limited. (3) Cardiomyopathy Assessment & Plan: He has mild left ventricular systolic dysfunction with inferior hypokinesis. Fortunately, his chest x-rays have not shown any evidence of overt pulmonary edema. Continue losartan. He is not a good candidate for beta-dejon due to his severe underlying pulmonary disease. (4) Acute on chronic respiratory failure with hypoxia and hypercapnia Status: Acute Assessment & Plan: Most likely related to an exacerbation of his chronic obstructive pulmonary disease and not related to underlying cardiac disease. His regular primary physician is managing this condition. (5) Essential hypertension Assessment & Plan: His blood pressures are better with losartan. At times they are slightly elevated. This can be followed by his primary provider after discharge. (6) Mixed hyperlipidemia Assessment & Plan: Continue intensive dose statin in light of the acute myocardial infarction LUL CLAROS JR, MD Apr 25, 2021 09:42
[2021-04-25 11:25] VITALS: BP 142/68
[2021-04-25] MEDS ORDERED: CLOP75TA69 PO (11:39)
[2021-04-25] MEDS ORDERED: APIX5TAB PO (11:41)
[2021-04-25 12:27] VITALS: BP 142/68
--- NOTE | 2021-04-25 20:14 | Pre-Op Note & Conscious Sedat ---
Pre-Operative Progress Note H&P Reviewed The H&P was reviewed, patient examined and no changes noted. Date H&P Reviewed: Apr 23, 2021 Time H&P Reviewed: 12:00 Pre-Op Diagnosis: NSTEMI Conscious Sedation Pre-Proced ASA Score 2 For ASA 3 and 4: Consider anesthesia and medical clearance. Also, for patients with a history of failed moderate sedation consider anesthesia. Airway Lungs Heart ASA score ASA 1: a normal healthy patient ASA 2: a patient with a mild systemic disease (mid diabetes, controlled hypertension, obesity ASA 3: a patient with a severe systemic disease that limits activity (angina, COPD, prior Myocardial infarction) ASA 4: a patient with an incapacitating disease that is a constant threat to life (CHF, renal failure) ASA 5: a moribund patient not expected to survive 24 hrs. (ruptured aneurysm) ASA 6: a declared brain- patient whose organs are being harvested. For emergent operations, add the letter E after the classification Mallampati Classification Grade 1 Sedation Plan Analgesia, Amnesia, Plan communicated to team members, Discussed options with patient/fam, Discussed risks with patient/fam The patient is an appropriate candidate to undergo the planned procedure, sedation, and anesthesia. The patient immediately re-assessed prior to indication. LUL CLAROS JR, MD Apr 25, 2021 20:14
== END 2021-04-25 12:30 | disposition home or self-care (01) | DRG 246 ==
LOC: EDUNIT# 21:00 → ER 21:01 → 4TH 23:55 → CSD 04-23 14:30 → 4TH 04-23 18:02
PROVIDERS: ADMIT Family Medicine; ATTEND Family Medicine
PROC: 027034Z Dilation of Coronary Artery, One Artery with Drug-eluting Intraluminal Device, Percutaneous Approach (ICD-10-PCS; principal; 2021-04-23)
PROC: 4A023N7 Measurement of Cardiac Sampling and Pressure, Left Heart, Percutaneous Approach (ICD-10-PCS; 2021-04-23)
PROC: B2111ZZ Fluoroscopy of Multiple Coronary Arteries using Low Osmolar Contrast (ICD-10-PCS; 2021-04-23)
PROC: 4A033BC Measurement of Arterial Pressure, Coronary, Percutaneous Approach (ICD-10-PCS; 2021-04-23)
DX: I21.4 Non-ST elevation (NSTEMI) myocardial infarction (principal); J96.22 Acute and chronic respiratory failure with hypercapnia; I50.33 Acute on chronic diastolic (congestive) heart failure; J44.1 Chronic obstructive pulmonary disease with (acute) exacerbation; J44.9 Chronic obstructive pulmonary disease, unspecified; I25.10 Atherosclerotic heart disease of native coronary artery without angina pectoris; E78.00 Pure hypercholesterolemia, unspecified; G20 Parkinson's disease; K21.9 Gastro-esophageal reflux disease without esophagitis; M19.90 Unspecified osteoarthritis, unspecified site; G89.29 Other chronic pain; M25.561 Pain in right knee; F41.9 Anxiety disorder, unspecified; I11.0 Hypertensive heart disease with heart failure; E11.65 Type 2 diabetes mellitus with hyperglycemia; I25.2 Old myocardial infarction; Z79.82 Long term (current) use of aspirin; Z79.899 Other long term (current) drug therapy; Z79.4 Long term (current) use of insulin; Z87.891 Personal history of nicotine dependence; Z95.5 Presence of coronary angioplasty implant and graft
CPT/HCPCS: 36415; 71045; 80048; 80053; 80061; 82805; 82947; 83735; 83874; 83880; 84484; 85007; 85025; 85027; 85610; 85730; 87081; 93005; 93041; 93306; 93454; 94640; 94760

== ENCOUNTER 2021-04-29 14:45 | Inpatient (IN) | payer MEDICARE ==
[~2021-04-29] VITALS: Ht 182 cm; Wt 77.0 kg
[~2021-04-29 14:45] MED LIST changes: +APIX5TAB PO; +LOSA25TA41 PO; +ROSU20TA32 PO
--- NOTE | 2021-04-29 14:56 | ED Respiratory ---
General Chief Complaint: Respiratory Problems Stated Complaint: SOA Source: patient, EMS Exam Limitations: no limitations History of Present Illness Date Seen by Provider: Apr 29, 2021 Time Seen by Provider: 14:45 Initial Comments Patient is a 80-year-old male who presents to the emergency room by EMS from his home with a chief complaint of shortness of breath. Patient started becoming short of breath yesterday. He has a longstanding history of end-stage COPD. Oxygen dependent at home has a CPAP at home. When EMS responders found the patient he was satting 90% on his CPAP. He was switched over to their oxygen and a DuoNeb x2 was administered. Patient initially, reported by EMS, was not moving any air. He is now wheezing considerably throughout all lung powell. He is a DNR/DNI. He has a history of recent stent placement by Dr. Copeland, cardiology about 2 weeks ago. He is on blood thinners. He denies any fevers or chills. No sore throat or runny nose. He does have a productive cough. He denies chest pain. No nausea vomiting or diarrhea. No complaints. No swelling in his legs. He states that he does not smoke cigarettes anymore. Patient is Covid vaccinated and has a history of having Covid about a year ago. He states he received his vaccination in October After arrival the patient was quickly transferred over to [facility] here in the emergency department. Tolerating this well. All other review of systems reviewed and negative except as stated. Timing/Duration: yesterday Severity: severe Prior Episodes/Possible Cause: frequent episodes Modifying Factors: Worse With Activity; Improves With Albuterol Inhaler, Impr oves With Albuterol Nebulizer; Worse With Coughing Associated Symptoms: cough, shortness of breath Allergies and Home Medications Allergies Coded Allergies: hydrocodone (Verified Adverse Reaction, Mild, NAUSEA, 04/19/21) oxycodone (Verified Adverse Reaction, Mild, NAUSEA, 04/19/21) Home Medications Albuterol Sulfate 18 Gm Hfa.aer.ad, 1-2 PUFF INH Q6H PRN for SHORTNESS OF BREATH, (Reported) Last Action: Reviewed Apixaban 5 Mg Tablet, 5 MG PO BID Prescribed by: TRENT MENDEZ on 04/25/21 1141 Last Action: Continued Budesonide/Formoterol Fumarate 10.2 Gm Hfa.aer.ad, 2 PUFF IH BID, (Reported) Last Action: Converted Calcium Carbonate 500 Mg Tablet, 500 MG PO DAILY, (Reported) Last Action: Held Carbidopa/Levodopa 1 Each Tablet.er, 1 TAB PO TID, (Reported) Last Action: Continued Cefdinir 300 Mg Capsule, 300 MG PO BID Prescribed by: YVETTE BARAKAT on 04/22/21 100 Last Action: Held Cholecalciferol (Vitamin D3) 25 Mcg Capsule, 25 MCG PO DAILY, (Reported) Last Action: Held Clopidogrel Bisulfate 75 Mg Tablet, 75 MG PO DAILY Prescribed by: TRENT MENDEZ on 04/25/21 1139 Last Action: Continued Cyanocobalamin (Vitamin B-12) 50 Mcg Tablet, 50 MCG PO DAILY, (Reported) Last Action: Held Gabapentin 600 Mg Tablet, 600 MG PO HS, (Reported) Last Action: Continued Hydrocodone/Acetaminophen 1 Each Tablet, 1 EA PO Q4H PRN for PAIN-MODERATE (5- 7), (Reported) Last Action: Continued Insulin Detemir 100 Unit/1 Ml Insuln.pen, 20 UNIT SQ HS, (Reported) Last Action: Converted Isosorbide Mononitrate 30 Mg Tab.er.24h, 30 MG PO DAILY, (Reported) Last Action: Continued Losartan Potassium 25 Mg Tablet, 25 MG PO DAILY Prescribed by: YVETTE BARAKAT on 04/25/21838 Last Action: Held Melatonin 3 Mg Tablet, 3-6 MG PO HS PRN for SLEEP, (Reported) Last Action: Continued Mirtazapine 15 Mg Tablet, 15 MG PO HS, (Reported) Last Action: Converted Montelukast Sodium 10 Mg Tablet, 10 MG PO DAILY, (Reported) Last Action: Continued Pantoprazole Sodium 40 Mg Tablet.dr, 40 MG PO DAILY, (Reported) Last Action: Continued Prednisone 20 Mg Tab, 20 MG PO DAILY Take 3 tabs(60mg)daily for 3 days then 2 tabs daily for 3 days then 1 tab daily for 3 days Prescribed by: YVETTE BARAKAT on 04/22/211007 Last Action: Held Rosuvastatin Calcium 20 Mg Tablet, 40 MG PO HS Prescribed by: YVETTE BARAKAT on 04/25/2139 Last Action: Held Silver Sulfadiazine 50 Gm Cream..g., 1 APPLIC TP BID, (Reported) Last Action: Continued Tiotropium [place] 4 Gm Mist.inhal, 2 PUFF INH DAILY, (Reported) Last Action: Converted Venlafaxine HCl 150 Mg Cap.er.24h, 150 MG PO DAILY, (Reported) Last Action: Converted Patient Home Medication List Home Medication List Reviewed: Yes Review of Systems Review of Systems Constitutional: see HPI EENTM: no symptoms reported Respiratory: cough, dyspnea on exertion, phlegm, short of breath Cardiovascular: no symptoms reported Gastrointestinal: no symptoms reported Genitourinary: no symptoms reported Musculoskeletal: no symptoms reported Skin: no symptoms reported Psychiatric/Neurological: No Symptoms Reported All Other Systems Reviewed Negative Unless Noted: Yes Past Kdxxjdg-Iohhjc-Urnyvt Hx Immunizations Up To Date Tetanus Booster (TDap): Unknown PED Vaccines UTD: No Seasonal Allergies Seasonal Allergies: No Past Medical History Surgery/Hospitalization HX: SKIN CANCERS REMOVED BILATERAL CATARACT SURGERY RIGHT KNEE SCOPE CARDIAC CATHS--STENTS X 5 Surgeries: Yes (CATARACTS;R KNEE SCOPE; SKIN CANCERS REMOVED;CARDIAC CATHS- STENTS X 5) Cardiac, Coronary Stent, Eye Surgery, Orthopedic Respiratory: Yes (O2 AT 5L AT HOME;MULTIPLE EPISODES OF RESP FAILURE) Pneumonia, Sleep Apnea, COPD Currently Using CPAP: Yes Currently Using BIPAP: No Cardiac: Yes (CARDIAC CATHS-STENTS X 5) Coronary Artery Disease, Heart Attack, High Cholesterol, Hypertension Neurological: Yes Parkinson's Disease Reproductive Disorders: No Sexually Transmitted Disease: No HIV/AIDS: No Genitourinary: No Gastrointestinal: Yes Gastroesophageal Reflux Musculoskeletal: Yes (CHRONIC RIGHT KNEE PAIN ; RIGHT KNEE SCOPE) Arthritis, Fractures Endocrine: Yes (NON-COMPLIANT) Diabetes, Insulin dep HEENT: Yes (BILATERAL CATARACT SURGERY; TEETH REMOVED) Cataract Loss of Vision: Bilateral Hearing Impairment: Hard of Hearing Cancer: Yes Skin Did You Recieve Any Treatments: Yes What Type of Treatment Did You: Surgical Intervention Psychosocial: Yes Anxiety Integumentary: Yes (ACTINIC KERATOSIS, SKIN CANCER) Eczema Blood Disorders: No Adverse Reaction/Blood Tranf: No Family Medical History Cancer 09 BROTHER Cancer of colon 09 BROTHER Cataract 03 MOTHER Chest pain 03 MOTHER Congenital heart disease 03 FATHER Congestive heart failure 03 FATHER Family history: Cardiovascular disease 03 FATHER 03 MOTHER Family history: Diabetes mellitus 03 FATHER Family history: Gastrointestinal disease 03 MOTHER Family history: Hypertension 03 MOTHER Hearing loss 03 FATHER Heart disease 03 FATHER History of - respiratory disease 03 FATHER Kidney disease 03 FATHER Myocardial infarction 03 FATHER Stroke 03 FATHER No Family History of: Abdominal aortic aneurysm Socorro's disease Alcoholism Aphasia Cystic fibrosis Dementia Dysphagia Family history: Allergy Family history: Alzheimer's disease Family history: Arthritis Family history: Asthma Family history: Breast disease Family history: Coronary thrombosis Family history: Glaucoma Family history: Osteoporosis Family history: Thyroid disorder Headache Hereditary disease History of - anemia History of - disorder History of drug abuse Human immunodeficiency virus (HIV) seropositivity Hypercholesterolemia Infertile Malignant neoplasm of lung Parkinson's disease Prostate cancer Psychotic disorder Seizure disorder Tuberculosis Visual impairment LONG HISTORY OF NON-COMPLIANCE PT IS DNR/DNI, VERBAL PER PT ON 04/18/21 Physical Exam Vital Signs - First Documented Capillary Refill : Height: 6'0.00" Weight: 204lbs. 9.0oz. 92.490900iu; 24.85 BMI Method:Stated General Appearance: moderate distress Eyes: Bilateral Eye Normal Inspection HEENT: PERRL/EOMI Neck: normal inspection Respiratory: respiratory distress, wheezing, expiration (Significant expiratory wheezes noted in all lung powell with increased work of breathing. Patient is conversationally dyspneic able to speak in only 1-2 word sentences) Cardiovascular: regular rate, rhythm, tachycardia Gastrointestinal: non tender, soft Extremities: normal range of motion, non-tender, no pedal edema, no calf tenderness Neurologic/Psychiatric: alert, normal mood/affect, oriented x 3 Skin: normal color, warm/dry, other (Significant bruises noted to the patient's bilateral upper extremities. 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) Focused Exam Lactate Level 04/29/21 14:16: Lactic Acid Level 2.14*H Lactic Acid Level Laboratory Tests Test 04/29/21 14:16 Lactic Acid Level 2.14 MMOL/L (0.50-2.00) *H Progress/Results/Core Measures Suspected Sepsis Recent Fever Within 48 Hours: No Infection Criteria Present: Suspected New Infection New/Unexplained Altered Menta: No Within 3hrs of presentation: Admin fluids, Admin ABX, Blood cultures prior to ABX's, Lactate level SIRS Temperature: Pulse: Respiratory Rate: Blood Pressure / Mean: 04/29/21 14:16: Lactic Acid Level 2.14*H Laboratory Tests 04/29/21 14:16: Creatinine 1.41H, INR Comment 1.0 Results/Orders Lab Results Laboratory Tests Test 04/29/21 14:16 04/29/21 14:51 04/29/21 15:10 04/29/21 15:54 Range/Units White Blood Count 17.6 H 4.3-11.0 10^3/uL Red Blood Count 3.63 L 4.30-5.52 10^6/uL Hemoglobin 10.8 L 13.3-17.7 g/dL Hematocrit 33 L 40-54 % Mean Corpuscular Volume 92 80-99 fL Mean Corpuscular Hemoglobin 30 25-34 pg Mean Corpuscular Hemoglobin Concent 32 32-36 g/dL Red Cell Distribution Width 15.3 H 10.0-14.5 % Platelet Count 164 130-400 10^3/uL Mean Platelet Volume 10.4 9.0-12.2 fL Immature Granulocyte % (Auto) 4 % Neutrophils (%) (Auto) 85 H 42-75 % Lymphocytes (%) (Auto) 2 L 12-44 % Monocytes (%) (Auto) 9 0-12 % Eosinophils (%) (Auto) 0 0-10 % Basophils (%) (Auto) 0 0-10 % Neutrophils # (Auto) 14.9 H 1.8-7.8 10^3/uL Lymphocytes # (Auto) 0.4 L 1.0-4.0 10^3/uL Monocytes # (Auto) 1.5 H 0.0-1.0 10^3/uL Eosinophils # (Auto) 0.0 0.0-0.3 10^3/uL Basophils # (Auto) 0.0 0.0-0.1 10^3/uL Immature Granulocyte # (Auto) 0.6 H 0.0-0.1 10^3/uL Neutrophils % (Manual) 94 % Lymphocytes % (Manual) 1 % Monocytes % (Manual) 5 % Anisocytosis SLIGHT Prothrombin Time 14.0 12.2-14.7 SEC INR Comment 1.0 0.8-1.4 Activated Partial Thromboplast Time 30 24-35 SEC Sodium Level 139 135-145 MMOL/L Potassium Level 5.1 H 3.6-5.0 MMOL/L Chloride Level 98 98-107 MMOL/L Carbon Dioxide Level 26 21-32 MMOL/L Anion Gap 15 H 5-14 MMOL/L Blood Urea Nitrogen 29 H 7-18 MG/DL Creatinine 1.41 H 0.60-1.30 MG/DL Estimat Glomerular Filtration Rate 48 BUN/Creatinine Ratio 21 Glucose Level 148 H 70-105 MG/DL Lactic Acid Level 2.14 *H 0.50-2.00 MMOL/L Calcium Level 9.5 8.5-10.1 MG/DL Influenza Type A (RT-PCR) Not Detected Not Detecte Influenza Type B (RT-PCR) Not Detected Not Detecte SARS-CoV-2 RNA (RT-PCR) Not Detected Not Detecte Blood Gas Puncture Site RT BRACH Blood Gas Patient Temperature 99.7 Arterial Blood pH 7.42 7.37-7.43 Arterial Blood Partial Pressure CO2 41 35-45 MMHG Arterial Blood Partial Pressure O2 53 L 79-93 MMHG Arterial Blood HCO3 26 23-27 MMOL/L Arterial Blood Total CO2 27.2 21.0-31.0 MMOL/L Arterial Blood Oxygen Saturation 80 L 94-100 % Arterial Blood Base Excess 2.0 -2.5-2.5 MMOL/L Ahsan Test YES-POS Blood Gas Ventilator Setting NO Blood Gas Inspired Oxygen 50 Troponin I 0.163 H <0.028 NG/ML B-Type Natriuretic Peptide 128.4 H <100.0 PG/ML Micro Results Microbiology 04/29/21 Blood Culture - Preliminary, Resulted No growth My Orders Orders - BROCK HOLLIS MD Ed Iv/Invasive Line Start (04/29/21 14:52) Cbc With Automated Diff (04/29/21 14:52) Basic Metabolic Panel (04/29/21 14:52) Chest 1 View, Ap/Pa Only (04/29/21 14:52) Covid 19 Inhouse Test (04/29/21 14:52) Influenza A And B By Pcr (04/29/21 14:52) Blood Culture (04/29/21 14:56) Sputum Culture (04/29/21 14:56) Protime With Inr (04/29/21 14:56) Partial Thromboplastin Time (04/29/21 14:56) Ed Iv/Invasive Line Start (04/29/21 14:56) Ed Iv/Invasive Line Start (04/29/21 14:56) Vital Signs Adult Sepsis Patie Q15M (04/29/21 14:56) O2 (8/6/21 14:56) Remove Rings In Anticipation O (04/29/21 14:56) Lactic Acid Analyzer (04/29/21 14:56) Arterial Blood Gas (04/29/21 15:04) Manual Differential (04/29/21 14:16) Ekg Tracing (04/29/21 15:52) BNP (04/29/21 15:54) Troponin I (04/29/21 15:54) Ua Culture If Indicated (04/29/21 16:11) Ns Iv 1000 Ml (Sodium Chloride 0.9%) (04/29/21 16:15) Wound Culture (04/29/21 16:53) Vancomycin Injection (Vancomycin Injecti (04/29/21 17:00) Vital Signs/I&O 04/29/21 04/29/21 04/29/21 14:55 14:55 14:55 Temp 37.9 37.6 Pulse 114 116 Resp 24 24 B/P (MAP) 81/43 (56) 86/76 (79) Pulse Ox 98 99 99 O2 Delivery NIV Bilevel NIV Bilevel NIV Bilevel FiO2 50 Capillary Refill : Progress Note : Time: 17:01 Progress Note Case discussed with Dr. Barakat, she is comfortable with medical on BiPAP. Requests culture of the wound to the right side of the face, vancomycin renal dosing per pharmacy. Patient is DNR/DNI. ECG Initial ECG Impression Date: Apr 29, 2021 Initial ECG Impression Time: 15:55 Initial ECG Rate: 114 Initial ECG Rhythm: Normal Sinus Initial ECG Intervals DE 158 QRS 103 QTc 427 Initial ECG Impression: Nonspecific Changes Comment ST segment flattening and depression of 1 mm in leads V5 and V6 this is slightly different with T wave inversion from previous EKG Critical Care Note Critical Care Start Time: 14:45 Stop Time: 16:30 Total Time (minutes) 45 minutes critical care time in the evaluation and management of this patient with acute respiratory distress in the setting of chronic respiratory failure with COPD. Patient required BiPAP therapy, fluid resuscitation for mildly decreased blood pressures. Time includes oxygen management fluid management review of the medical record extensively, discussion with admitting physician and discussion with patient. Departure Communication (Admissions) Time/Spoke to Admitting Phy: 16:[address] Braga; vancomycin; wound culture Impression Primary Impression: Acute on chronic respiratory failure Qualified Codes: J96.21 - Acute and chronic respiratory failure with hypoxia Additional Impression: Sepsis Qualified Codes: A41.9 - Sepsis, unspecified organism Disposition: ADMITTED INPATIENT Condition: Stable Admissions Decision to Admit Reason: Admit from ER (General) Decision to Admit/Date: Apr 29, 2021 Time/Decision to Admit Time: 16:55 Departure-Patient Inst. Referrals: YVETTE BARAKAT DO (PCP/Family) Primary Care Physician Copy Copies To 1: YVETTE BARAKAT KATHRYN M MD Apr 29, 2021 14:56
[2021-04-29 15:13] LABS: BASOPHILS % (AUTO) 0 % (0-10); EOSINOPHILS % (AUTO) 0 % (0-10); HEMATOCRIT 33 % (40-54); HEMOGLOBIN 10.8 g/dL (13.3-17.7); LYMPHOCYTES # (AUTO) 0.4 10^3/uL (1.0-4.0); LYMPHOCYTES % (AUTO) 2 % (12-44); MEAN CORPUSCULAR HEMOGLOBIN 30 pg (25-34); MEAN CORPUSCULAR HGB CONC 32 g/dL (32-36); MEAN CORPUSCULAR VOLUME 92 fL (80-99); MEAN PLATELET VOLUME 10.4 fL (9.0-12.2); MONOCYTES # (AUTO) 1.5 10^3/uL (0.0-1.0); MONOCYTES % (AUTO) 9 % (0-12); NEUTROPHILS # (AUTO) 14.9 10^3/uL (1.8-7.8); NEUTROPHILS % (AUTO) 85 % (42-75); PLATELET COUNT 164 10^3/uL (130-400); WHITE BLOOD COUNT 17.6 10^3/uL (4.3-11.0)
[2021-04-29 15:15] LABS: POTASSIUM 5.1 MMOL/L (3.6-5.0)
[2021-04-29 15:15] LABS: ABG OXYGEN SATURATION 80 % (94-100); ABG PCO2 41 MMHG (35-45); ABG PH 7.42 (7.37-7.43); ABG PO2 53 MMHG (79-93); ABG TCO2 27.2 MMOL/L (21.0-31.0)
[2021-04-29 15:16] LABS: ALLENS TEST YES-POS; INSPIRED O2 50; PATIENT TEMP 99.7; VENTILATOR NO
[2021-04-29 15:17] LABS: CALCIUM 9.5 MG/DL (8.5-10.1)
[2021-04-29 15:21] LABS: CREATININE SERUM 1.41 MG/DL (0.60-1.30)
[2021-04-29 15:40] LABS: ANISOCYTOSIS SLIGHT; LYMPHOCYTES % (MANUAL) 1 %; MONOCYTES % (MANUAL) 5 %; NEUTROPHILS % (MANUAL) 94 %
--- NOTE | 2021-04-29 15:42 | Diagnostic Imaging Report ---
INDICATION: Shortness of breath. EXAMINATION: Portable chest at 3:38 PM Heart size and pulmonary vascularity are normal. There is no infiltrate, effusion or pneumothorax. IMPRESSION: COPD. No acute abnormality is seen. Dictated by: Dictated on workstation # [id number]
[2021-04-29] MEDS: NS IV 1000 ML 1,000 ML IV SCH ×3 (16:20→20:31)
[2021-04-29] MEDS ORDERED: VANCOMYCIN 1500 MG/NS 500 ML IVPB IV NR ×2 (17:00)
[2021-04-29] MEDS ORDERED: VANCOMYCIN INJECTION 1,000 MG in NS (IVPB) 250 ML IV SCH (17:00)
[2021-04-29 18:39] VITALS: BP 86/76
[2021-04-29] MEDS ORDERED: RT-ALBUTEROL/IPRATROPIUM 3 ML (DUONEB) VIAL INH PRN (19:00)
[2021-04-29 20:03] VITALS: BP 114/44
[2021-04-29] MEDS: RT-ALBUTEROL/IPRATROPIUM 3 ML (DUONEB) VIAL INH SCH (20:09)
[2021-04-29 23:28] VITALS: BP 105/61
[2021-04-30] MEDS: RT-ALBUTEROL/IPRATROPIUM 3 ML (DUONEB) VIAL INH SCH ×6 (01:38→21:39)
[2021-04-30 03:33] VITALS: BP 131/68
[2021-04-30] MEDS: NS IV 1000 ML 1,000 ML IV SCH ×2 (04:15→16:02)
[2021-04-30 07:55] VITALS: BP 114/47
--- NOTE | 2021-04-30 08:37 | History & Physical-Hospitalist ---
FLOYD CALVO A MED STUDENT 04/30/21 0837: History of Present Illness HPI/Chief Complaint PT SLEEPING IN BED THIS MORNING, TOLERATING BIPAP WELL. UPON WAKING PT, HE STATES HE FEELS SOA. DENIES PAIN. Source: patient Exam Limitations: other (HARD FOR PT TO TALK WITH BIPAP MACHINE) Date Seen 04/30/21 Time Seen by a Provider: 08:00 Attending Physician Farzad Braga MD, Jacqueline S DO Referring Physician Date of Admission Apr 29, 2021 at 16:58 Home Medications & Allergies Home Medications Reviewed patient Home Medication Reconciliation performed by pharmacy medication reconciliations wellfield technician and/or nursing. Patients Allergies have been reviewed. Allergies Allergies Coded Allergies hydrocodone (Verified Adverse Reaction, Mild, NAUSEA, 04/19/21) oxycodone (Verified Adverse Reaction, Mild, NAUSEA, 04/19/21) Past Ekarilh-Dcbyky-Zmamrp Hx Patient Social History Tobacco Use?: No Use of E-Cig and/or Vaping dev: No Substance use?: No Alcohol Use?: No Pt feels they are or have been: No Immunizations Up To Date Date of Influenza Vaccine: Sep 25, 2018 First/Initial COVID19 Vaccinat: 11/14 Second COVID19 Vaccination James: 11/14 Tetanus Booster (TDap): Unknown Hepatitis A: No Hepatitis B: No PED Vaccines UTD: No Date of Pneumonia Vaccine: Sep 25, 2018 Seasonal Allergies Seasonal Allergies: No Current Status Advance Directives: Yes Advance Directive Location: Copy placed in chart Primary Language: Lithuanian Preferred Spoken Language: Lithuanian Is interpretation needed?: No Implanted or Applied Medical D: None Past Medical History Surgeries: Cardiac, Coronary Stent, Eye Surgery, Orthopedic Pneumonia, Sleep Apnea, COPD Currently Using CPAP: Yes Currently Using BIPAP: No Coronary Artery Disease, Heart Attack, High Cholesterol, Hypertension Parkinson's Disease Sexually Transmitted Disease: No HIV/AIDS: No Gastroesophageal Reflux Arthritis, Fractures Diabetes, Insulin dep Cataract Loss of Vision: Bilateral Hearing Impairment: Hard of Hearing Skin Did You Recieve Any Treatments: Yes What Type of Treatment Did You: Surgical Intervention Anxiety Eczema Blood Disorders: No Adverse Reaction/Blood Tranf: No Family Medical History Cancer 09 BROTHER Cancer of colon 09 BROTHER Cataract 03 MOTHER Chest pain 03 MOTHER Congenital heart disease 03 FATHER Congestive heart failure 03 FATHER Family history: Cardiovascular disease 03 FATHER 03 MOTHER Family history: Diabetes mellitus 03 FATHER Family history: Gastrointestinal disease 03 MOTHER Family history: Hypertension 03 MOTHER Hearing loss 03 FATHER Heart disease 03 FATHER History of - respiratory disease 03 FATHER Kidney disease 03 FATHER Myocardial infarction 03 FATHER Stroke 03 FATHER No Family History of: Abdominal aortic aneurysm Caroline's disease Alcoholism Aphasia Cystic fibrosis Dementia Dysphagia Family history: Allergy Family history: Alzheimer's disease Family history: Arthritis Family history: Asthma Family history: Breast disease Family history: Coronary thrombosis Family history: Glaucoma Family history: Osteoporosis Family history: Thyroid disorder Headache Hereditary disease History of - anemia History of - disorder History of drug abuse Human immunodeficiency virus (HIV) seropositivity Hypercholesterolemia Infertile Malignant neoplasm of lung Parkinson's disease Prostate cancer Psychotic disorder Seizure disorder Tuberculosis Visual impairment LONG HISTORY OF NON-COMPLIANCE PT IS DNR/DNI, VERBAL PER PT ON 04/18/21 Review of Systems Constitutional: chills Respiratory: short of breath Cardiovascular: no symptoms reported Gastrointestinal: no symptoms reported Genitourinary: no symptoms reported Musculoskeletal: no symptoms reported Skin: hx of skin cancer, lesions (BILATERAL ARM LACERATIONS WITH ECCHYMOSIS) Physical Exam Physical Exam Vital Signs Vital Signs - First Documented 04/29/21 18:32 O2 Flow Rate 50.00 Capillary Refill : Less Than 3 Seconds Height, Weight, BMI Height: 6'0.00" Weight: 204lbs. 9.0oz. [id number]; 23.24 BMI Method:Stated Respiratory: Crackles, Wheezing (DIFFUSE BILATERAL WHEEZING) Cardiovascular: Normal Peripheral Pulses Gastrointestinal: Normal Bowel Sounds, Non Tender, Soft Extremity: Normal Inspection, Non Tender, No Pedal Edema Skin: Ecchymosis (BILATERAL ARMS) Results Results/Procedures Labs Laboratory Tests 04/29/21 14:16 Patient resulted labs reviewed. 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 HE PRESENTED TO THE HOSPITAL WITH SHORTNESS OF BREATH AND WEAKNESS. HE WAS FOUND TO BE IN ACUTE RESPIRATORY DISTRESS AND WAS PLACED ON BIPAP. DEVIN REPORTS THAT FOR THE PAST FEW DAYS HE HAS BEEN USING HIS CPAP CONTINUOUSLY. Source: patient, family, EMS notes reviewed Exam Limitations: no limitations Date Seen 04/30/2021 Time Seen by a Provider: 09:30 Attending Physician FARZAD BRAGA MD Home Medications & Allergies Home Medications REVIEWED AND RESTARTED APPROPRIATE Past Ebjgsjj-Ijfind-Fonxpg Hx Patient Social History Marrital Status: Living Status: LIVES AT [facility] ALONE Employed/Student: retired Tobacco Use?: No Smoking Status: Former Smoker Seasonal Allergies Seasonal Allergies: No Current Status Advance Directives: Unable to obtain Communicates: Verbally Primary Language: Lithuanian Preferred Spoken Language: Lithuanian Is interpretation needed?: No Sensory deficits: Hearing impairment Implanted or Applied Medical D: CPAP Past Medical History Surgeries: Coronary Stent (Cardiac, Coronary Stent, Eye Surgery, Orthopedic), Orthopedic Sleep Apnea, COPD Currently Using CPAP: Yes Coronary Artery Disease, High Cholesterol, Hypertension Arthritis Diabetes, Insulin dep Loss of Vision: Denies Skin What Type of Treatment Did You: Radiation Family Medical History Reviewed Nursing Family Hx Cancer 09 BROTHER Cancer of colon 09 BROTHER Cataract 03 MOTHER Chest pain 03 MOTHER Congenital heart disease 03 FATHER Congestive heart failure 03 FATHER Family history: Cardiovascular disease 03 FATHER 03 MOTHER Family history: Diabetes mellitus 03 FATHER Family history: Gastrointestinal disease 03 MOTHER Family history: Hypertension 03 MOTHER Hearing loss 03 FATHER Heart disease 03 FATHER History of - respiratory disease 03 FATHER Kidney disease 03 FATHER Myocardial infarction 03 FATHER Stroke 03 FATHER No Family History of: Abdominal aortic aneurysm Caroline's disease Alcoholism Aphasia Cystic fibrosis Dementia Dysphagia Family history: Allergy Family history: Alzheimer's disease Family history: Arthritis Family history: Asthma Family history: Breast disease Family history: Coronary thrombosis Family history: Glaucoma Family history: Osteoporosis Family history: Thyroid disorder Headache Hereditary disease History of - anemia History of - disorder History of drug abuse Human immunodeficiency virus (HIV) seropositivity Hypercholesterolemia Infertile Malignant neoplasm of lung Parkinson's disease Prostate cancer Psychotic disorder Seizure disorder Tuberculosis Visual impairment Review of Systems Constitutional: chills; No fever; malaise, weakness EENTM: No hoarseness, No throat pain, No throat swelling Respiratory: cough, dyspnea on exertion, short of breath Cardiovascular: no symptoms reported, Hx of Intervention Gastrointestinal: No abdominal pain, No constipation, No diarrhea Genitourinary: no symptoms reported Musculoskeletal: muscle weakness Skin: hx of skin cancer (LARGE NODULAR LESION RIGHT FACE NEAR EAR), lesions (BILATERAL ARM LACERATIONS WITH ECCHYMOSIS) Psychiatric/Neurological: Depressed All Other Systems Reviewed Negative Unless Noted: Yes Physical Exam Physical Exam General Appearance: WD/WN, Moderate Distress (DUE TO RESPIRATORY DISTRESS) HEENT: PERRL/EOMI, TMs Normal, Normal ENT Inspection, Pharynx Normal, Moist Mucous Membranes Neck: Full Range of Motion, Supple Respiratory: Chest Non Tender, Crackles, Decreased Breath Sounds, Respiratory Distress (USE OF ACCESSORY MUSCLES TO BREATHE), Wheezing (DIFFUSE BILATERAL WHEEZING) Cardiovascular: Regular Rate, Rhythm, Normal Peripheral Pulses, Other (DISTANT HEART SOUNDS TO DUE TO PULMONARY DISEASE) Gastrointestinal: Normal Bowel Sounds, Non Tender, Soft Rectal: Deferred Extremity: Normal Capillary Refill, Normal Inspection, Non Tender, No Calf Tenderness, No Pedal Edema Neurologic/Psychiatric: Alert, Oriented x3, No Motor/Sensory Deficits, Normal Mood/Affect, cartoonist special effects II-XII Norm as Tested Skin: Warm/Dry, Ecchymosis (BILATERAL ARMS), Other (NODULAR LESION ON FACE ON RIGHT SIDE NEAR EAR/CHEEK) Results Results/Procedures Imaging: Reviewed Imaging Films, Reviewed Imaging Report Assessment/Plan Admission Diagnosis ACUTE ON CHRONIC RESPIRATORY FAILURE COPD EXACERBATION SEPSIS HX OF MRSA SKIN CANCER RIGHT CHEEK/FACE DIABETES MELLITUS DEPRESSION PARKINSON'S DISEASE Admission Status: Inpatient Order (span 2 midnights) Reason for Inpatient Admission: INPT ADMISSION FOR RESPIRATORY FAILURE, COPD EXACERBATION WITH SEPSIS, WILL REQUIRE AT LEAST 72 HOURS FOR STABILIZATION AND WEANING DOWN HIS OXYGEN NEEDS. Assessment and Plan ACUTE ON CHRONIC RESPIRATORY FAILURE COPD EXACERBATION SEPSIS HX OF MRSA SKIN CANCER RIGHT CHEEK/FACE DIABETES MELLITUS DEPRESSION PARKINSON'S DISEASE ACUTE ON CHRONIC RESPIRATORY FAILURE WITH COPD EXACERBATION - IMPROVED, CONTINUE WITH HOME REGIMEN - ADD STEROID - SOLUMEDROL TO CURRENT TREATMENT REGIMEN - RESUME BIPAP SINCE PT HAS BEEN DEPENDENT ON THIS AT HOME RECENTLY. SEPSIS WITH HX OF MRSA - PT ON VANCOMYCIN DIABETES MELLITUS TYPE 2 - FSBS, PT ON INSULIN - LEVEMIR 20 UNITS HYPERTENSION - PT ON CURRENT HOME REGIMEN - AMLODIPINE 5MG, LOSARTAN 100MG LEUKOCYTOSIS - WBC'S ELEVATED - MAY BE DUE TO STEROIDS, ANTICIPATE INCREASE IN WHITE COUNT WITH RESUMPTION OF HIGH DOSE STEROIDS. PARKINSON'S DISEASE - PT ON SINEMET 25/100MG TID - CONTINUE CURRENT REGIMEN SKIN CANCER - PT RECEIVING RADIATION - WILL SEE IF THEY PLAN TO RESTART ON SUNDAY. GI PROPHYLAXIS WITH PPI AND PROBIOTICS DVT PROPHYLAXIS WITH BLOOD THINNERS AND SCD'S DISCUSSED CASE WITH HIS SON, HE WILL NEED TO BE PLACED IN A FDC ON DISCHARGE SINCE DEVIN CANNOT MANAGE TO CARE FOR HIMSELF IN HIS CURRENT DEBILITATED STATE. Supervisory-Addendum Brief Verification & Attestation Participated in pt care: history, MDM, physical Personally performed: exam, history, MDM, supervision of care Care discussed with: Medical Student Procedures: n/a Results interpretation: Verified all documentation SEE MY DOCUMENTATION IN CHART AGREE WITH STUDENT NOTE. I HAVE PERSONALLY REVIEWED HIS ER NOTE, RADIOLOGY, LABS AND DISCUSSED CASE WITH ER PHYSICIAN, HIS SON, THE PT AND FORMULATED THE ASSESSMENT AND PLAN DOCUMENTED. FLOYD CALVO MED STUDENT Apr 30, 2021 08:37 FARZAD BRAGA MD Apr 30, 2021 15:18
[2021-04-30 11:05] VITALS: BP 130/56
[2021-04-30] MEDS: PANTOPRAZOLE 40 MG (PROTONIX) TAB PO SCH (12:04)
[2021-04-30] MEDS: CLOPIDOGREL 75 MG (PLAVIX) TABLET PO SCH (12:04)
[2021-04-30] MEDS: MONTELUKAST 10 MG (SINGULAIR) TAB PO SCH (12:04)
[2021-04-30] MEDS: SINEMET CR 50/200 (CARBIDOPA/LEVODOPA SA) TAB PO SCH ×2 (12:04→19:34)
--- NOTE | 2021-04-30 14:01 | Consultation - Surgery ---
LUL COLLINS 04/30/21 1401: History of Present Illness History of Present Illness Patient Consulted On(bryan/time) 04/30/21 13:55 Date Seen by Provider: Apr 30, 2021 Time Seen by Provider: 01:48 History of Present Illness HPI from ED: Patient is a 80-year-old male who presents to the emergency room by EMS from his home with a chief complaint of shortness of breath. Patient started becoming short of breath yesterday. He has a longstanding history of end-stage COPD. Oxygen dependent at home has a CPAP at home. When EMS responders found the patient he was satting 90% on his CPAP. He was switched over to their oxygen and a DuoNeb x2 was administered. Patient initially, reported by EMS, was not moving any air. He is now wheezing considerably throughout all lung powell. He is a DNR/DNI. He has a history of recent stent placement by Dr. Copeland, cardiology about 2 weeks ago. He is on blood thinners. He denies any fevers or chills. No sore throat or runny nose. He does have a productive cough. He denies chest pain. No nausea vomiting or diarrhea. No complaints. No swelling in his legs. He states that he does not smoke cigarettes anymore. Patient is Covid vaccinated and has a history of having Covid about a year ago. He states he received his vaccination in October After arrival the patient was quickly transferred over to BiPAP here in the emergency department. Tolerating this well. Today - Mr Huerta, is 80 yo m that arrived in the hospital via EMS due to COPD exacerbation. Pt has chronic end stage COPD and frequently suffers from SOA. Sitting up and using a BiPAP helps considerably, and exertion make it worse. Pt is currently resting in bed on 4L nasal canula Pt reports no pain currently, and describes episodes as "struggling to breath". 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 Pt has venous insuficiency which prevents administration of IV fluids and abx, surgery was consulted for central line placement. Allergies and Home Medications Allergies Coded Allergies: hydrocodone (Verified Adverse Reaction, Mild, NAUSEA, 04/19/21) oxycodone (Verified Adverse Reaction, Mild, NAUSEA, 04/19/21) Home Medications Albuterol Sulfate 18 Gm Hfa.aer.ad, 1-2 PUFF INH Q6H PRN for SHORTNESS OF BREATH, (Reported) Last Action: Reviewed Apixaban 5 Mg Tablet, 5 MG PO BID Prescribed by: TRENT MENDEZ on 04/25/21 1141 Last Action: Continued Budesonide/Formoterol Fumarate 10.2 Gm Hfa.aer.ad, 2 PUFF IH BID, (Reported) Last Action: Converted Calcium Carbonate 500 Mg Tablet, 500 MG PO DAILY, (Reported) Last Action: Held Carbidopa/Levodopa 1 Each Tablet.er, 1 TAB PO TID, (Reported) Last Action: Continued Cefdinir 300 Mg Capsule, 300 MG PO BID Prescribed by: YVETTE JACKMAN on 04/22/21 1008 Last Action: Held Cholecalciferol (Vitamin D3) 25 Mcg Capsule, 25 MCG PO DAILY, (Reported) Last Action: Held Clopidogrel Bisulfate 75 Mg Tablet, 75 MG PO DAILY Prescribed by: TRENT MENDEZ on 04/25/21 1139 Last Action: Continued Cyanocobalamin (Vitamin B-12) 50 Mcg Tablet, 50 MCG PO DAILY, (Reported) Last Action: Held Gabapentin 600 Mg Tablet, 600 MG PO HS, (Reported) Last Action: Continued Hydrocodone/Acetaminophen 1 Each Tablet, 1 EA PO Q4H PRN for PAIN-MODERATE (5- 7), (Reported) Last Action: Continued Insulin Detemir 100 Unit/1 Ml Insuln.pen, 20 UNIT SQ HS, (Reported) Last Action: Converted Isosorbide Mononitrate 30 Mg Tab.er.24h, 30 MG PO DAILY, (Reported) Last Action: Continued Losartan Potassium 25 Mg Tablet, 25 MG PO DAILY Prescribed by: YVETTE JACKMAN on 04/25/21 0839 Last Action: Held Melatonin 3 Mg Tablet, 3-6 MG PO HS PRN for SLEEP, (Reported) Last Action: Continued Mirtazapine 15 Mg Tablet, 15 MG PO HS, (Reported) Last Action: Converted Montelukast Sodium 10 Mg Tablet, 10 MG PO DAILY, (Reported) Last Action: Continued Pantoprazole Sodium 40 Mg Tablet.dr, 40 MG PO DAILY, (Reported) Last Action: Continued Prednisone 20 Mg Tab, 20 MG PO DAILY Take 3 tabs(60mg)daily for 3 days then 2 tabs daily for 3 days then 1 tab daily for 3 days Prescribed by: YVETTE JACKMAN on 04/22/21 1008 Last Action: Held Rosuvastatin Calcium 20 Mg Tablet, 40 MG PO HS Prescribed by: YVETTE JACKMAN on 04/25/21 0839 Last Action: Held Silver Sulfadiazine 50 Gm Cream..g., 1 APPLIC TP BID, (Reported) Last Action: Continued Tiotropium Harbert 4 Gm Mist.inhal, 2 PUFF INH DAILY, (Reported) Last Action: Converted Venlafaxine HCl 150 Mg Cap.er.24h, 150 MG PO DAILY, (Reported) Last Action: Converted Past Khyvuud-Ltyzov-Uxirhe Hx Patient Social History Smoking Status: Former Smoker Cigarettes Per Day: 40 Former Smoker, Quit: May 25, 1996 Type Used: Cigars, Cigarettes 2nd Hand Smoke Exposure: Yes Recent Hopitalizations: Yes (2 MONTHS AGO - COPD) Alcohol Use?: Yes ( quit drinking 25yrs ago) Have you traveled recently?: No Immunizations Up To Date Tetanus Booster (TDap): Unknown PED Vaccines UTD: No Date of Pneumonia Vaccine: Sep 25, 2018 Date of Influenza Vaccine: Sep 25, 2018 Seasonal Allergies Seasonal Allergies: No Surgeries History of Surgeries: Yes (CATARACTS;R KNEE SCOPE; SKIN CANCERS REMOVED;CARDIAC CATHS-STENTS X 5) Surgeries: Cardiac, Coronary Stent, Eye Surgery, Orthopedic Respiratory History of Respiratory Disorde: Yes (O2 AT 5L AT HOME;MULTIPLE EPISODES OF RESP FAILURE) Respiratory Disorders: Pneumonia, Sleep Apnea, COPD Cardiovascular History of Cardiac Disorders: Yes (CARDIAC CATHS-STENTS X 5) Cardiac Disorders: Coronary Artery Disease, Heart Attack, High Cholesterol, Hyp ertension Neurological History of Neurological Disord: Yes Neurological Disorders: Parkinson's Disease Reproductive System Hx Reproductive Disorders: No Sexually Transmitted Disease: No HIV/AIDS: No Genitourinary History of Genitourinary Disor: No Gastrointestinal History of Gastrointestinal Di: Yes Gastrointestinal Disorders: Gastroesophageal Reflux Musculoskeletal History of Musculoskeletal Dis: Yes (CHRONIC RIGHT KNEE PAIN ; RIGHT KNEE SCOPE) Musculoskeletal Disorders: Arthritis, Fractures Endocrine History of Endocrine Disorders: Yes (NON-COMPLIANT) Endocrine Disorders: Diabetes, Insulin dep HEENT History of HEENT Disorders: Yes (BILATERAL CATARACT SURGERY; TEETH REMOVED) HEENT Disorders: Cataract Loss of Vision: Bilateral Hearing Impairment: Hard of Hearing Cancer History of Cancer: Yes Cancer: Skin Psychosocial History of Psychiatric Problem: Yes Behavioral Health Disorders: Anxiety Integumentary History of Skin or Integumenta: Yes (ACTINIC KERATOSIS, SKIN CANCER) Skin/Integumentary Disorders: Eczema Blood Transfusions History of Blood Disorders: No Adverse Reaction to a Blood Tr: No Family Medical History Family Medial History: Cancer 09 BROTHER Cancer of colon 09 BROTHER Cataract 03 MOTHER Chest pain 03 MOTHER Congenital heart disease 03 FATHER Congestive heart failure 03 FATHER Family history: Cardiovascular disease 03 FATHER 03 MOTHER Family history: Diabetes mellitus 03 FATHER Family history: Gastrointestinal disease 03 MOTHER Family history: Hypertension 03 MOTHER Hearing loss 03 FATHER Heart disease 03 FATHER History of - respiratory disease 03 FATHER Kidney disease 03 FATHER Myocardial infarction 03 FATHER Stroke 03 FATHER No Family History of: Abdominal aortic aneurysm Grayson's disease Alcoholism Aphasia Cystic fibrosis Dementia Dysphagia Family history: Allergy Family history: Alzheimer's disease Family history: Arthritis Family history: Asthma Family history: Breast disease Family history: Coronary thrombosis Family history: Glaucoma Family history: Osteoporosis Family history: Thyroid disorder Headache Hereditary disease History of - anemia History of - disorder History of drug abuse Human immunodeficiency virus (HIV) seropositivity Hypercholesterolemia Infertile Malignant neoplasm of lung Parkinson's disease Prostate cancer Psychotic disorder Seizure disorder Tuberculosis Visual impairment Review of Systems-General Constitutional: No chills, No dizziness, No fever EENTM: No ear pain, No blurred vision, No double vision, No eye pain, No vision loss Respiratory: cough, short of breath Cardiovascular: No chest pain, No edema; Hx of Intervention Gastrointestinal: No abdominal pain, No constipation, No diarrhea, No nausea, No vomiting Genitourinary: No decreased output, No discharge, No dysuria Musculoskeletal: No back pain, No joint pain, No muscle pain, No muscle stiffness, No muscle cramps, No muscle twitching, No muscle weakness Skin: dryness, hx of skin cancer, lesions Psychiatric/Neurological: Denies Headache, Denies Numbness Physical Exam-General Problems Physical Exam Vital Signs Vital Signs - First Documented 04/29/21 18:32 O2 Flow Rate 50.00 Capillary Refill : Less Than 3 Seconds General Appearance: mild distress Eyes: Bilateral Eye EOMI HEENT: pharynx normal; No pale conjunctivae (R), No pale conjunctivae (L) Neck: non-tender, supple, normal inspection, other (Old clavical Fx healed in displaced position - left) Respiratory: chest non-tender, respiratory distress, accessory muscle use, crac kles, expiration, inspiration Cardiovascular: normal peripheral pulses, regular rate, rhythm Peripheral Pulses: 2+ Carotid (R), 2+ Carotid (L), 2+ Dorsalis Pedis (R), 2+ Left Dors-Pedis (L), 2+ Radial Pulses (R), 2+ Radial Pulses (L) Gastrointestinal: non tender, soft, no organomegaly, no pulsatile mass Rectal: deferred Extremities: normal range of motion, non-tender, normal inspection, no pedal edema, no calf tenderness Neurologic/Psychiatric: career information specialist II-XII nml as tested, no motor/sensory deficits, alert, normal mood/affect Skin: normal color, warm/dry, other (multiple senile purpuric lesions on both upper extremities) Lymphatic: no adenopathy; No axilla node tender (R), No axilla node tender (L) Data Review Labs Laboratory Tests 04/29/21 14:16: White Blood Count 17.6H, Red Blood Count 3.63L, Hemoglobin 10.8L, Hematocrit 33L , Mean Corpuscular Volume 92, Mean Corpuscular Hemoglobin 30, Mean Corpuscular Hemoglobin Concent 32, Red Cell Distribution Width 15.3H, Platelet Count 164, Mean Platelet Volume 10.4, Immature Granulocyte % (Auto) 4, Neutrophils (%) (Auto) 85H, Lymphocytes (%) (Auto) 2L, Monocytes (%) (Auto) 9, Eosinophils (%) (Auto) 0, Basophils (%) (Auto) 0, Neutrophils # (Auto) 14.9H, Lymphocytes # (Auto) 0.4L, Monocytes # (Auto) 1.5H, Eosinophils # (Auto) 0.0, Basophils # (Auto) 0.0, Immature Granulocyte # (Auto) 0.6H, Neutrophils % (Manual) 94, Lymphocytes % (Manual) 1, Monocytes % (Manual) 5, Anisocytosis SLIGHT, Prothrombin Time 14.0, INR Comment 1.0, Activated Partial Thromboplast Time 30, Sodium Level 139, Potassium Level 5.1H, Chloride Level 98, Carbon Dioxide Level 26, Anion Gap 15H, Blood Urea Nitrogen 29H, Creatinine 1.41H, Estimat Glomerular Filtration Rate 48, BUN/Creatinine Ratio 21, Glucose Level 148H, Lactic Acid Level 2.14*H, Calcium Level 9.5 04/29/21 14:51: Influenza Type A (RT-PCR) Not Detected, Influenza Type B (RT-PCR) Not Detected, SARS-CoV-2 RNA (RT-PCR) Not Detected 04/29/21 15:10: Blood Gas Puncture Site RT BRACH, Blood Gas Patient Temperature 99.7, Arterial Blood pH 7.42, Arterial Blood Partial Pressure CO2 41, Arterial Blood Partial Pressure O2 53L, Arterial Blood HCO3 26, Arterial Blood Total CO2 27.2, Arterial Blood Oxygen Saturation 80L, Arterial Blood Base Excess 2.0, Ahsan Test YES-POS, Blood Gas Ventilator Setting NO, Blood Gas Inspired Oxygen 50 04/29/21 15:54: Troponin I 0.163H, B-Type Natriuretic Peptide 128.4H 04/29/21 17:15: Lactic Acid Level 1.63 04/29/21 20:07: Glucometer 117H 04/30/21 05:44: Glucometer 69L 04/30/21 11:14: Glucometer 101 Microbiology 04/29/21 Gram Stain, Resulted Pending 04/29/21 Wound Culture - Preliminary, Resulted Staphylococcus species Assessment/Plan Assessment/Plan Admission Diagonsis SOA and COPD exacerbation Assessment/Plan COPD CAD Piedad Insuficency [facility] Skin cancer Plan - central line placement for IV fluid and abx. RUTHY GAONA DO 04/30/21 1634: History of Present Illness History of Present Illness Time Seen by Provider: 13:48 History of Present Illness Surgery asked to consult regarding venous insuffiency. Nurses tried multiple times to get peripheral IV and none successful; pt needs solumedrol, IV fluids and other meds through IV. Allergies and Home Medications Allergies Coded Allergies: hydrocodone (Verified Adverse Reaction, Mild, NAUSEA, 04/19/21) oxycodone (Verified Adverse Reaction, Mild, NAUSEA, 04/19/21) Home Medications Albuterol Sulfate 18 Gm Hfa.aer.ad, 1-2 PUFF INH Q6H PRN for SHORTNESS OF BREATH, (Reported) Last Action: Reviewed Apixaban 5 Mg Tablet, 5 MG PO BID Prescribed by: TRENT MENDEZ on 04/25/21 1141 Last Action: Continued Budesonide/Formoterol Fumarate 10.2 Gm Hfa.aer.ad, 2 PUFF IH BID, (Reported) Last Action: Converted Calcium Carbonate 500 Mg Tablet, 500 MG PO DAILY, (Reported) Last Action: Held Carbidopa/Levodopa 1 Each Tablet.er, 1 TAB PO TID, (Reported) Last Action: Continued Cefdinir 300 Mg Capsule, 300 MG PO BID Prescribed by: YVETTE JACKMAN on 04/22/211007 Last Action: Held Cholecalciferol (Vitamin D3) 25 Mcg Capsule, 25 MCG PO DAILY, (Reported) Last Action: Held Clopidogrel Bisulfate 75 Mg Tablet, 75 MG PO DAILY Prescribed by: TRENT MENDEZ on 04/25/21 1139 Last Action: Continued Cyanocobalamin (Vitamin B-12) 50 Mcg Tablet, 50 MCG PO DAILY, (Reported) Last Action: Held Gabapentin 600 Mg Tablet, 600 MG PO HS, (Reported) Last Action: Continued Hydrocodone/Acetaminophen 1 Each Tablet, 1 EA PO Q4H PRN for PAIN-MODERATE (5- 7), (Reported) Last Action: Continued Insulin Detemir 100 Unit/1 Ml Insuln.pen, 20 UNIT SQ HS, (Reported) Last Action: Converted Isosorbide Mononitrate 30 Mg Tab.er.24h, 30 MG PO DAILY, (Reported) Last Action: Continued Losartan Potassium 25 Mg Tablet, 25 MG PO DAILY Prescribed by: YVETTE JACKMAN on 04/25/2139 Last Action: Held Melatonin 3 Mg Tablet, 3-6 MG PO HS PRN for SLEEP, (Reported) Last Action: Continued Mirtazapine 15 Mg Tablet, 15 MG PO HS, (Reported) Last Action: Converted Montelukast Sodium 10 Mg Tablet, 10 MG PO DAILY, (Reported) Last Action: Continued Pantoprazole Sodium 40 Mg Tablet.dr, 40 MG PO DAILY, (Reported) Last Action: Continued Prednisone 20 Mg Tab, 20 MG PO DAILY Take 3 tabs(60mg)daily for 3 days then 2 tabs daily for 3 days then 1 tab daily for 3 days Prescribed by: YVETTE JACKMAN on 04/22/211007 Last Action: Held Rosuvastatin Calcium 20 Mg Tablet, 40 MG PO HS Prescribed by: YVETTE JACKMAN on 04/25/2139 Last Action: Held Silver Sulfadiazine 50 Gm Cream..g., 1 APPLIC TP BID, (Reported) Last Action: Continued Tiotropium Harbert 4 Gm Mist.inhal, 2 PUFF INH DAILY, (Reported) Last Action: Converted Venlafaxine HCl 150 Mg Cap.er.24h, 150 MG PO DAILY, (Reported) Last Action: Converted Patient Home Medication List Home Medication List Reviewed: Yes Past Yuqxvcf-Ntycbn-Ticsrx Hx Patient Social History Smoking Status: Former Smoker Alcohol Use?: Yes ( quit drinking 25yrs ago) Surgeries History of Surgeries: Yes Surgeries: Cardiac, CABG, Orthopedic Respiratory History of Respiratory Disorde: Yes Respiratory Disorders: Sleep Apnea, COPD Cardiovascular History of Cardiac Disorders: Yes Cardiac Disorders: Coronary Artery Disease, High Cholesterol, Hypertension Neurological History of Neurological Disord: Yes Neurological Disorders: Parkinson's Disease Genitourinary History of Genitourinary Disor: Yes Genitourinary Disorders: Benign Prostatic Hyperpl Gastrointestinal History of Gastrointestinal Di: Yes Gastrointestinal Disorders: Gastroesophageal Reflux Musculoskeletal History of Musculoskeletal Dis: Yes Musculoskeletal Disorders: Arthritis Endocrine History of Endocrine Disorders: Yes Endocrine Disorders: Diabetes, Insulin dep HEENT History of HEENT Disorders: Yes HEENT Disorders: Cataract Loss of Vision: Bilateral Hearing Impairment: Hard of Hearing Cancer History of Cancer: Yes (Facial) Psychosocial History of Psychiatric Problem: Yes Behavioral Health Disorders: Anxiety Integumentary History of Skin or Integumenta: No Family Medical History Significant Family History: Heart Disease, Cancer, Diabetes, Hypertension Family Medial History: Cancer 09 BROTHER Cancer of colon 09 BROTHER Cataract 03 MOTHER Chest pain 03 MOTHER Congenital heart disease 03 FATHER Congestive heart failure 03 FATHER Family history: Cardiovascular disease 03 FATHER 03 MOTHER Family history: Diabetes mellitus 03 FATHER Family history: Gastrointestinal disease 03 MOTHER Family history: Hypertension 03 MOTHER Hearing loss 03 FATHER Heart disease 03 FATHER History of - respiratory disease 03 FATHER Kidney disease 03 FATHER Myocardial infarction 03 FATHER Stroke 03 FATHER No Family History of: Abdominal aortic aneurysm Grayson's disease Alcoholism Aphasia Cystic fibrosis Dementia Dysphagia Family history: Allergy Family history: Alzheimer's disease Family history: Arthritis Family history: Asthma Family history: Breast disease Family history: Coronary thrombosis Family history: Glaucoma Family history: Osteoporosis Family history: Thyroid disorder Headache Hereditary disease History of - anemia History of - disorder History of drug abuse Human immunodeficiency virus (HIV) seropositivity Hypercholesterolemia Infertile Malignant neoplasm of lung Parkinson's disease Prostate cancer Psychotic disorder Seizure disorder Tuberculosis Visual impairment Review of Systems-General Constitutional: No dizziness, No fever; malaise, weakness EENTM: vision loss; No eye pain Respiratory: cough, short of breath Cardiovascular: No chest pain, No edema; Hx of Intervention Gastrointestinal: No abdominal pain, No constipation, No diarrhea, No nausea, No vomiting Genitourinary: No decreased output, No dysuria, No frequency, No hematuria Musculoskeletal: joint pain, muscle pain, muscle stiffness Skin: dryness, hx of skin cancer, lesions Psychiatric/Neurological: Anxiety; Denies Headache, Denies Numbness Physical Exam-General Problems Physical Exam General Appearance: mild distress, thin Eyes: Bilateral Eye PERRL, Bilateral Eye EOMI HEENT: pharynx normal; No pale conjunctivae (R), No pale conjunctivae (L) Neck: non-tender, supple Respiratory: chest non-tender, respiratory distress, accessory muscle use, crackles, expiration, inspiration Cardiovascular: regular rate, rhythm, no murmur Gastrointestinal: non tender, soft, no organomegaly, no pulsatile mass Rectal: deferred Extremities: no pedal edema, no calf tenderness, other (obvious left clavicle fracture) Neurologic/Psychiatric: alert Skin: normal color, warm/dry, other (multiple senile purpuric lesions on both upper extremities) Assessment/Plan Assessment/Plan Assessment/Plan COPD CAD Piedad Insuficency MRSA Skin cancer Plan - central line placement for IV fluid and abx. Supervisory-Addendum Brief Verification & Attestation Participated in pt care: history, MDM, physical Personally performed: exam, history, MDM, supervision of care Care discussed with: Medical Student Procedures: n/a Verification and Attestation of Medical Student E/M Service A medical student performed and documented this service. I then reviewed and verified all information documented by the medical student and made mo difications to such information, when appropriate. I personally performed a physical exam, medical decision making and then discussed any differences between the notes and made revisions as necessary to create one note. Ruthy Gaona , 04/30/21 , 16:36 LUL COLLINS Apr 30, 2021 14:01 RUTHY GAONA DO Apr 30, 2021 16:34
[2021-04-30 16:00] VITALS: BP 141/65
[2021-04-30] MEDS: methylPREDNISolone 40 MG/ML (Solu-MEDROL) VIAL IV SCH ×2 (16:01→17:49)
--- NOTE | 2021-04-30 16:27 | Progress Note-Post Operative ---
Post-Operative Progess Note Surgeon (s)/Etched Circuit Processor (s) Surgeon RUTHY GAONA DO Etched Circuit Processor: none Pre-Operative Diagnosis venous insufficiency Post-Operative Diagnosis same Procedure & Operative Findings Date of Procedure 04/30/21 Procedure Performed/Findings The patient was in their bed on the 4th floor, was prepped and draped in the sterile fashion. A surgical pause was performed. Ultrasound was used to locate the LEFT internal jugular vein. Once located anesthetic was infiltrated above it. Using an 18 gauge finder needle and watching with the US; the left internal jugular vein was accessed. Dark nonpulsatile blood was withdrawn. The wire was inserted. US assured proper placement. The needle was removed. A [#11] blade scalpel was used to make a stab incision along the guidewire. Dilator sheath accidentally fell off the bed, had to use catheter itself as the dilator. The Groshong catheter was inserted over the guide wire using the Seldinger technique; went in easily. The Groshong wire was removed. The catheter was then accessed in all three ports without difficulty. Good flash of blood was seen and it was then flushed with saline. The catheter was sutured in place with 3-0 silk on a shaye needle. The areas were then washed and dried. Sterile dressing was placed over incision. The patient tolerated the procedure well without complication. Anesthesia Type local lidocaine Estimated Blood Loss Estimated blood loss (mL): scant Specimens/Packing Specimens Removed none RUTHY GAONA DO Apr 30, 2021 16:27
[2021-04-30] MEDS: inSUlin ASPART (NovoLOG) 1 UNIT/0.01 ML (CHARGE PER UNIT) SC SCH ×2 (16:40→21:45)
[2021-04-30] MEDS: VANCOMYCIN 1250 MG/NS 250 ML IVPB IV SCH ×2 (17:49)
[2021-04-30] MEDS: MIRTAZAPINE 15 MG (REMERON) TAB PO SCH (19:34)
[2021-04-30] MEDS: GABAPENTIN 600 MG (NEURONTIN) TAB PO SCH (19:34)
[2021-04-30] MEDS: APIXABAN 5 MG (ELIQUIS) TABLET PO SCH (19:34)
[2021-04-30] MEDS: SILVER SULFADIAZINE 400 GM CREAM TP SCH (19:39)
[2021-04-30 19:50] VITALS: BP 119/54
[2021-04-30] MEDS: MELATONIN 3 MG TABLET PO PRN (20:25)
[2021-04-30] MEDS ORDERED: RT--FLUTICASONE/SALMETEROL 232-14 (AIRDUO RespiCLICK) IH SCH (21:00)
[2021-05-01] VITALS (7 sets, daily range): BP systolic 107–145; BP diastolic 55–85
[2021-05-01] MEDS: methylPREDNISolone 40 MG/ML (Solu-MEDROL) VIAL IV SCH ×5 (00:38→23:19)
[2021-05-01] MEDS: NS IV 1000 ML 1,000 ML IV SCH ×4 (00:39→17:00)
[2021-05-01] MEDS: RT-ALBUTEROL/IPRATROPIUM 3 ML (DUONEB) VIAL INH SCH ×6 (01:34→21:45)
[2021-05-01] MEDS: inSUlin ASPART (NovoLOG) 1 UNIT/0.01 ML (CHARGE PER UNIT) SC SCH ×4 (05:59→21:44)
[2021-05-01] MEDS: VENlafaxine XR 75 MG (EFFEXOR XR) CAP PO SCH (05:59)
[2021-05-01 06:13] LABS: HEMATOCRIT 26 % (40-54); HEMOGLOBIN 8.1 g/dL (13.3-17.7); MEAN CORPUSCULAR HEMOGLOBIN 29 pg (25-34); MEAN CORPUSCULAR HGB CONC 31 g/dL (32-36); MEAN CORPUSCULAR VOLUME 93 fL (80-99); MEAN PLATELET VOLUME 9.9 fL (9.0-12.2); PLATELET COUNT 125 10^3/uL (130-400); WHITE BLOOD COUNT 4.5 10^3/uL (4.3-11.0)
[2021-05-01 06:31] LABS: CHLORIDE 106 MMOL/L (98-107); POTASSIUM 4.6 MMOL/L (3.6-5.0); SODIUM 139 MMOL/L (135-145)
[2021-05-01 06:32] LABS: CALCIUM 7.8 MG/DL (8.5-10.1)
[2021-05-01 06:33] LABS: GLUCOSE 166 MG/DL (70-105)
[2021-05-01 06:34] LABS: TOTAL PROTEIN 5.3 GM/DL (6.4-8.2)
[2021-05-01 06:35] LABS: BILIRUBIN,TOTAL 0.2 MG/DL (0.1-1.0); CARBON DIOXIDE 22 MMOL/L (21-32)
[2021-05-01 06:37] LABS: ALKALINE PHOSPHATASE 40 U/L (40-136); CREATININE SERUM 0.77 MG/DL (0.60-1.30); GFR ESTIMATED 97
[2021-05-01 06:38] LABS: BUN/CREATININE RATIO 31
[2021-05-01 06:40] LABS: ALANINE AMINOTRANSFERASE < 6 U/L (0-55)
[2021-05-01] MEDS ORDERED: UMECLIDINIUM BROMIDE (INCRUSE ELLIPTA) 7'S IH SCH (08:00)
--- NOTE | 2021-05-01 09:31 | Progress Note ---
Subjective Subjective Date Seen by Provider: May 01, 2021 Time Seen by Provider: 09:30 PT REPORTS THAT HE FEELS A LITTLE BIT BETTER TODAY, HOWEVER HE DOES ADMIT TO FEELING SOMEWHAT SHORT OF BREATH, MAYBE A LITTLE WORSE OFF OF THE BIPAP. HE DENIES ABDOMINAL PAIN HIS APPETITE HAS IMPROVED. Review of Systems General: No Chills; Fatigue HEENT: No Visual Changes, No Dysphasia Pulmonary: Dyspnea, Cough Cardiovascular: No: Chest Pain, Edema Gastrointestinal: No: Nausea, Abdominal Pain Genitourinary: Frequency Neurological: Weakness; No: Confusion All Other Systems Reviewed All Other Systems Reviewed: Yes Objective Exam Vital Signs Vital Signs Date Time Temp Pulse Resp B/P (MAP) Pulse Ox O2 Delivery O2 Flow Rate FiO2 05/01/21 08:00 94 NIV Bilevel 35.00 50 05/01/21 08:00 36.1 52 17 145/77 (99) 97 NIV Bilevel 35.00 05/01/21 07:00 20 35.00 05/01/21 07:00 54 05/01/21 04:37 36.7 61 26 141/72 (95) 94 NIV Bilevel 35.00 05/01/21 01:34 73 19 97 35.00 05/01/21 00:27 60 05/01/21 00:00 36.4 65 24 134/66 (88) 98 NIV Bilevel 35.00 04/30/21 21:39 71 22 97 35.00 04/30/21 19:50 36.0 72 22 119/54 (75) 97 NIV Bilevel 35.00 04/30/21 19:35 NIV Bilevel 35 04/30/21 19:00 80 04/30/21 18:21 76 22 97 35.00 04/30/21 16:00 36.5 75 22 141/65 (90) 95 NIV Bilevel 35.00 04/30/21 14:54 90 25 99 35.00 04/30/21 13:00 83 04/30/21 11:05 36.4 66 20 130/56 (80) 96 NIV Bilevel 35.00 04/30/21 10:49 70 22 92 35.00 I & O 05/01/21 07:00 Intake Total 1670 ml Output Total 1350 ml Balance 320 ml General Appearance: WD/WN, Moderate Distress (DUE TO RESPIRATORY DISTRESS) Eyes: Bilateral Eye Normal Inspection, Bilateral Eye PERRL, Bilateral Eye EOMI HEENT: PERRL/EOMI, TMs Normal, Normal ENT Inspection, Pharynx Normal, Moist Mucous Membranes Neck: Full Range of Motion, Supple Respiratory: Chest Non Tender, Crackles, Decreased Breath Sounds, Respiratory Distress (USE OF ACCESSORY MUSCLES TO BREATHE), Wheezing (DIFFUSE BILATERAL WHEEZING) Cardiovascular: Regular Rate, Rhythm, Normal Peripheral Pulses, Other (DISTANT HEART SOUNDS TO DUE TO PULMONARY DISEASE) Gastrointestinal: Normal Bowel Sounds, Non Tender, Soft Rectal: Deferred Extremity: Normal Capillary Refill, Normal Inspection, Non Tender, No Calf Tenderness, No Pedal Edema Neurologic/Psychiatric: Alert, Oriented x3, No Motor/Sensory Deficits, Normal 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, 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 Norm as Tested Skin: Warm/Dry, Ecchymosis (BILATERAL ARMS), Other (NODULAR LESION ON FACE ON RIGHT SIDE NEAR EAR/CHEEK) Results Lab Laboratory Tests 04/30/21 11:14: Glucometer 101 04/30/21 16:26: Glucometer 94 04/30/21 21:11: Glucometer 233H 05/01/21 05:58: Glucometer 164H 05/01/21 06:00: White Blood Count 4.5, Red Blood Count 2.78L, Hemoglobin 8.1#L, Hematocrit 26L, Mean Corpuscular Volume 93, Mean Corpuscular Hemoglobin 29, Mean Corpuscular Hemoglobin Concent 31L, Red Cell Distribution Width 15.0H, Platelet Count 125L, Mean Platelet Volume 9.9, Sodium Level 139, Potassium Level 4.6, Chloride Level 106, Carbon Dioxide Level 22, Anion Gap 11, Blood Urea Nitrogen 24H, Creatinine 0.77, Estimat Glomerular Filtration Rate 97, BUN/Creatinine Ratio 31, Glucose Level 166H, Calcium Level 7.8L, Corrected Calcium 8.6, Total Bilirubin 0.2, Aspartate Amino Transf (AST/SGOT) 17, Alanine Aminotransferase (ALT/SGPT) < 6, Alkaline Phosphatase 40, Total Protein 5.3L, Albumin 3.0L Microbiology 04/29/21 Gram Stain - Final, Resulted 04/29/21 Wound Culture - Preliminary, Resulted Staphylococcus species 04/29/21 Blood Culture - Preliminary, Resulted No growth Assessment/Plan Assessment/Plan Admission Dx ACUTE ON CHRONIC RESPIRATORY FAILURE COPD EXACERBATION SEPSIS HX OF MRSA SKIN CANCER RIGHT CHEEK/FACE DIABETES MELLITUS DEPRESSION LEUKOCYTOSIS PARKINSON'S DISEASE ANEMIA Assessment and Plan ACUTE ON CHRONIC RESPIRATORY FAILURE COPD EXACERBATION SEPSIS HX OF MRSA SKIN CANCER RIGHT CHEEK/FACE DIABETES MELLITUS DEPRESSION LEUKOCYTOSIS PARKINSON'S DISEASE ANEMIA ACUTE ON CHRONIC RESPIRATORY FAILURE WITH COPD EXACERBATION - IMPROVED, CONTINUE WITH HOME REGIMEN - ADD STEROID - SOLUMEDROL TO CURRENT TREATMENT REGIMEN - PT WAS ON BIPAP YESTERDAY AND WEANED DOWN OFF OF BIPAP TO HIGH FLOW NC, HOWEVER HE HAS BEEN USING HIS ABDOMINAL MUSCLES TO BREATHE AND I HAVE ADVISED THAT I WOULD LIKE HIM PLACED ON VAPOTHERM THERAPY TO HELP SUPPORT HIM MORE EFFECTIVELY AND PREVENT RESPIRATORY MUSCLE FATIGUE. SEPSIS WITH HX OF MRSA - PT ON VANCOMYCIN DIABETES MELLITUS TYPE 2 - FSBS, PT ON INSULIN - LEVEMIR 20 UNITS HYPERTENSION - PT ON CURRENT HOME REGIMEN - AMLODIPINE 5MG, LOSARTAN 100MG LEUKOCYTOSIS - WBC'S IMPROVED AT THIS TIME - WILL MONITOR LABS SERIALLY - WOULD ANTICIPATE AN INCREASE DUE TO IV STEROIDS. PARKINSON'S DISEASE - PT ON SINEMET 25/100MG TID - CONTINUE CURRENT REGIMEN SKIN CANCER - PT RECEIVING RADIATION - WILL SEE IF THEY PLAN TO RESTART ON SUNDAY. GI PROPHYLAXIS WITH PPI AND PROBIOTICS DVT PROPHYLAXIS WITH BLOOD THINNERS AND SCD'S DISCUSSED CASE WITH HIS SON, HE WILL NEED TO BE PLACED IN A [facility] ON DISCHARGE SINCE DEVIN CANNOT MANAGE TO CARE FOR HIMSELF IN HIS CURRENT DEBILITATED STATE. FARZAD FOX MD May 01, 2021 09:31
[2021-05-01] MEDS: CLOPIDOGREL 75 MG (PLAVIX) TABLET PO SCH (09:34)
[2021-05-01] MEDS: ISOSORBIDE MONONITRATE 30 MG (IMDUR) TAB PO SCH (09:34)
[2021-05-01] MEDS: APIXABAN 5 MG (ELIQUIS) TABLET PO SCH ×2 (09:34→20:28)
[2021-05-01] MEDS: PANTOPRAZOLE 40 MG (PROTONIX) TAB PO SCH (09:34)
[2021-05-01] MEDS: SINEMET CR 50/200 (CARBIDOPA/LEVODOPA SA) TAB PO SCH ×3 (09:34→20:28)
[2021-05-01] MEDS: MONTELUKAST 10 MG (SINGULAIR) TAB PO SCH (09:34)
[2021-05-01] MEDS: SILVER SULFADIAZINE 400 GM CREAM TP SCH ×2 (09:35→20:36)
[2021-05-01 10:30] LABS: BASOPHILS % (AUTO) 0 % (0-10); EOSINOPHILS % (AUTO) 0 % (0-10); HEMOGLOBIN 8.9 g/dL (13.3-17.7); LYMPHOCYTES # (AUTO) 0.1 10^3/uL (1.0-4.0)
[2021-05-01 10:32] LABS: HEMATOCRIT 29 % (40-54); LYMPHOCYTES % (AUTO) 3 % (12-44); MEAN CORPUSCULAR HEMOGLOBIN 30 pg (25-34); MEAN CORPUSCULAR HGB CONC 31 g/dL (32-36); MEAN CORPUSCULAR VOLUME 94 fL (80-99); MEAN PLATELET VOLUME 9.9 fL (9.0-12.2); MONOCYTES # (AUTO) 0.1 10^3/uL (0.0-1.0); MONOCYTES % (AUTO) 3 % (0-12); NEUTROPHILS # (AUTO) 4.6 10^3/uL (1.8-7.8); NEUTROPHILS % (AUTO) 91 % (42-75); PLATELET COUNT 145 10^3/uL (130-400); WHITE BLOOD COUNT 5.1 10^3/uL (4.3-11.0)
[2021-05-01 10:48] LABS: BAND NEUTROPHILS 0 %; BASOPHILS % (MANUAL) 0 %; EOSINOPHILS % (MANUAL) 0 %; LYMPHOCYTES % (MANUAL) 0 %; MONOCYTES % (MANUAL) 3 %; NEUTROPHILS % (MANUAL) 97 %
[2021-05-01 10:49] LABS: RBC MORPH NORMAL
[2021-05-01] MEDS ORDERED: FUROSEMIDE 40 MG/4 ML INJ (LASIX) IVP ONE (17:15)
[2021-05-01] MEDS ORDERED: LORazepam INJ 2 MG/ML (ATIVAN) VIAL IVP PRN (17:15)
[2021-05-01] MEDS: VANCOMYCIN 1250 MG/NS 250 ML IVPB IV SCH ×2 (18:04)
[2021-05-01] MEDS: MIRTAZAPINE 15 MG (REMERON) TAB PO SCH (20:28)
[2021-05-01] MEDS: GABAPENTIN 600 MG (NEURONTIN) TAB PO SCH (20:28)
[2021-05-01] MEDS: MELATONIN 3 MG TABLET PO PRN (21:44)
[2021-05-02] MEDS: RT-ALBUTEROL/IPRATROPIUM 3 ML (DUONEB) VIAL INH SCH ×6 (01:59→22:11)
[2021-05-02 04:00] VITALS: BP 115/80
[2021-05-02] MEDS: methylPREDNISolone 40 MG/ML (Solu-MEDROL) VIAL IV SCH ×3 (05:44→17:06)
[2021-05-02] MEDS: VENlafaxine XR 75 MG (EFFEXOR XR) CAP PO SCH (05:44)
[2021-05-02] MEDS: inSUlin ASPART (NovoLOG) 1 UNIT/0.01 ML (CHARGE PER UNIT) SC SCH ×4 (05:44→20:39)
[2021-05-02] MEDS: NS IV 1000 ML 1,000 ML IV SCH ×3 (05:47→16:16)
[2021-05-02 05:56] LABS: HEMATOCRIT 29 % (40-54); MEAN CORPUSCULAR HEMOGLOBIN 30 pg (25-34); MEAN CORPUSCULAR HGB CONC 31 g/dL (32-36); MEAN CORPUSCULAR VOLUME 94 fL (80-99); MEAN PLATELET VOLUME 9.6 fL (9.0-12.2); PLATELET COUNT 149 10^3/uL (130-400); WHITE BLOOD COUNT 13.6 10^3/uL (4.3-11.0)
[2021-05-02 06:12] LABS: POTASSIUM 3.9 MMOL/L (3.6-5.0)
[2021-05-02 06:14] LABS: CALCIUM 7.9 MG/DL (8.5-10.1)
[2021-05-02 06:18] LABS: CREATININE SERUM 0.92 MG/DL (0.60-1.30)
--- NOTE | 2021-05-02 07:51 | Progress Note - Hospitalist ---
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 HE IS UP IN BED THIS MORNING WITH FAMILY AT BEDSIDE. HE IS TOLERATING BIPAP WELL, BUT IS STILL SOMEWHAT SOA, BUT IMPROVING SINCE YESTERDAY. DENIES ABDOMINAL PAIN. PT HAS GOOD APPETITE. PT IS HAVING INCREASED MUCOUS PRODUCTION THAT MAKES IT HARD TO BREATHE. STATES HE WANTS TO CONTINUE RADIATION FOR FACIAL CANCER WHILE IN HOSPITAL. DISCUSSED PENITENTIARY PLACEMENT UPON D/C WITH PT AND FAMILY, BOTH AGREED. Review of Systems General: No Appetite Pulmonary: Dyspnea, Cough (PRODUCTIVE) Cardiovascular: No: Chest Pain, Palpitations Gastrointestinal: No: Nausea, Vomiting, Diarrhea, Constipation Focused Exam Lactate Level 04/29/21 14:16: Lactic Acid Level 2.14*H 04/29/21 17:15: Lactic Acid Level 1.63 Objective Exam Vital Signs Vital Signs Date Time Temp Pulse Resp B/P (MAP) Pulse Ox O2 Delivery O2 Flow Rate FiO2 05/02/21 07:00 50 05/02/21 07:00 22 35.00 05/02/21 04:00 36.2 115/80 (92) 96 NIV Bilevel 05/01/21 20:40 35 Capillary Refill : Less Than 3 Seconds General Appearance: WD/WN, Chronically ill, Mild Distress Respiratory: Decreased Breath Sounds, Wheezing Cardiovascular: Regular Rate, Rhythm, Normal Peripheral Pulses Gastrointestinal: Normal Bowel Sounds, Non Tender, Soft Extremity: Normal Inspection, Non Tender, No Pedal Edema Neurologic/Psychiatric: Alert, Oriented x3 Skin: Ecchymosis (BILATERAL ARMS), Other (RIGHT SIDED FACIAL SQUAMOUS CELL CARCINOMA) Results/Procedures Lab Laboratory Tests 05/01/21 10:20 05/02/21 05:50 Patient resulted labs reviewed. Imaging: Reviewed Imaging Films, Reviewed Imaging Report Assessment/Plan Assessment and Plan Assess & Plan/Chief Complaint COPD EXACERBATION SEPSIS HX OF MRSA SKIN CANCER RIGHT CHEEK/FACE DIABETES MELLITUS DEPRESSION LEUKOCYTOSIS PARKINSON'S DISEASE ANEMIA ACUTE ON CHRONIC RESPIRATORY FAILURE WITH COPD EXACERBATION - IMPROVED, CONTINUE WITH HOME REGIMEN - ADD STEROID - SOLUMEDROL TO CURRENT TREATMENT REGIMEN - PT TOLERATING BIPAP WELL. -CONTINUE BIPAP DURING THE DAY AND NIGHT. SWITCH TO VAPOTHERM WHILE EATING, BUT RETURN TO BIPAP 1 HR AFTER MEALS. 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 -ADVISED PT IT IS SAFE TO TAKE MUCINEX FOR INCREASED MUCOUS PRODUCTION. SEPSIS WITH HX OF MRSA - PT ON VANCOMYCIN DIABETES MELLITUS TYPE 2 - FSBS, PT ON INSULIN - LEVEMIR 20 UNITS HYPERTENSION - PT ON CURRENT HOME REGIMEN - AMLODIPINE 5MG, LOSARTAN 100MG LEUKOCYTOSIS - WBC'S INCREASED DUE TO STEROID USE. PARKINSON'S DISEASE - PT ON SINEMET 25/100MG TID - CONTINUE CURRENT REGIMEN SKIN CANCER - WILL CONTACT CANCER CENTER TO PROCEED WITH PTS RADIATION. ANEMIA -H/H IMPROVING AT 9.0 AND 29, WILL CONTINUE TO MONITOR GI PROPHYLAXIS WITH PPI AND PROBIOTICS DVT PROPHYLAXIS WITH BLOOD THINNERS AND SCD'S DISCUSSED CASE WITH HIS FAMILY, HE WILL NEED TO BE PLACED IN A PENITENTIARY ON DISCHARGE SINCE DEVIN CANNOT MANAGE TO CARE FOR HIMSELF IN HIS CURRENT DEBILITATED STATE. PT AND FAMILY AGREE THIS IS BEST. FARZAD FOX MD 05/02/212055: Subjective Subjective/Events-last exam PT REPORTS THAT HE IS FEELING MUCH BETTER NOW THAT HE DID YESTERDAY EVENING. HIS FAMILY IS IN THE ROOM THIS MORNING. LAST NIGHT DEVIN HAD SEVERE SHORTNESS OF BREATH WHILE ON VAPOTHERM AND WAS TRANSITIONED BACK TO BIPAP THERAPY, WAS GIVEN LASIX, AND THIS MORNING IS FEELING LESS SHORT OF BREATH. HIS FAMILY IS WONDERING IF "THIS IS THE END" OR WHAT THEY SHOULD BE EXPECTING FOR HIM FAR RECOVERY IS CONCERNED AND WHEN WE WOULD ANTICIPATE HIM BEING ABLE TO GO TO THE PENITENTIARY Review of Systems General: Fatigue, Malaise HEENT: No Dysphasia, No Sore Throat Pulmonary: Dyspnea, Cough (PRODUCTIVE) Cardiovascular: No: Chest Pain, Palpitations Gastrointestinal: No: Nausea, Vomiting, Diarrhea, Constipation Genitourinary: No Dysuria; Frequency Neurological: Weakness; No: Confusion Objective Exam General Appearance: WD/WN, Chronically ill, Mild Distress (FORCE OF SPEECH DUE TO DIFFICULTY BREATHING) HEENT: PERRL/EOMI Neck: Full Range of Motion, Supple Respiratory: Chest Non Tender, No Accessory Muscle Use, Decreased Breath Sounds, Wheezing Cardiovascular: Regular Rate, Rhythm, Normal Peripheral Pulses Gastrointestinal: Normal Bowel Sounds, No Organomegaly, No Pulsatile Mass, Non Tender, Soft Rectal: Deferred Extremity: Normal Capillary Refill, Non Tender, No Pedal Edema Neurologic/Psychiatric: Alert, Oriented x3, No Motor/Sensory Deficits, Normal 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/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, 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 Supervisory-Addendum Brief Verification & Attestation Participated in pt care: history, MDM, physical Personally performed: exam, history, MDM, supervision of care Care discussed with: Medical Student Procedures: n/a Results interpretation: Verified all documentation I HAVE PERSONALLY EVALUATED THE PATIENT AND DISCUSSED HIS CASE WITH THE PATIENT, HIS FAMILY WHO WAS PRESENT IN THE ROOM AND WITH THE STUDENT THE ASSESSMENT AND PLAN WAS BEING FORMULATED. I PERSONALLY EXAMINED THE PATIENT AND REVIEWED THE AVAILABLE DATA. I CALLED THE CANCER CENTER TO RESUME THE TREATMENT ON HIS SKIN CANCER OF THE FACE. I HAVE ALSO CONTACTED HARBOR MASTER TO WORK ON REFERRAL TO A PENITENTIARY. FLOYD CALVO STUDENT May 02, 2021 07:51 FARZAD FOX MD May 02, 2021 20:56
[2021-05-02 08:00] VITALS: BP 146/64
[2021-05-02] MEDS: SILVER SULFADIAZINE 400 GM CREAM TP SCH ×2 (09:07→21:14)
[2021-05-02] MEDS: APIXABAN 5 MG (ELIQUIS) TABLET PO SCH ×2 (09:07→20:13)
[2021-05-02] MEDS: CLOPIDOGREL 75 MG (PLAVIX) TABLET PO SCH (09:07)
[2021-05-02] MEDS: ISOSORBIDE MONONITRATE 30 MG (IMDUR) TAB PO SCH (09:07)
[2021-05-02] MEDS: MONTELUKAST 10 MG (SINGULAIR) TAB PO SCH (09:07)
[2021-05-02] MEDS: SINEMET CR 50/200 (CARBIDOPA/LEVODOPA SA) TAB PO SCH ×3 (09:07→20:13)
[2021-05-02] MEDS: PANTOPRAZOLE 40 MG (PROTONIX) TAB PO SCH (09:07)
[2021-05-02 12:00] VITALS: BP 142/51
[2021-05-02] MEDS: guaiFENesin (MUCINEX) 600 MG TAB PO SCH ×2 (12:02→20:13)
[2021-05-02 16:00] VITALS: BP 152/69
[2021-05-02] MEDS ORDERED: TROUGH ORDER-PHARMACY XX NR (17:00)
[2021-05-02] MEDS: VANCOMYCIN 1250 MG/NS 250 ML IVPB IV SCH ×2 (18:34)
[2021-05-02] MEDS: VANCOMYCIN 1500 MG/NS 500 ML IVPB IV SCH ×2 (18:51)
[2021-05-02] MEDS: GABAPENTIN 600 MG (NEURONTIN) TAB PO SCH (20:12)
[2021-05-02] MEDS: MIRTAZAPINE 15 MG (REMERON) TAB PO SCH (20:13)
[2021-05-02 20:20] VITALS: BP 139/61
[2021-05-02 23:30] VITALS: BP 149/74
[2021-05-03] MEDS: methylPREDNISolone 40 MG/ML (Solu-MEDROL) VIAL IV SCH ×5 (00:25→23:49)
[2021-05-03] MEDS: NS IV 1000 ML 1,000 ML IV SCH ×3 (02:14→21:27)
[2021-05-03] MEDS: RT-ALBUTEROL/IPRATROPIUM 3 ML (DUONEB) VIAL INH SCH ×6 (02:45→21:54)
[2021-05-03 03:37] VITALS: BP 172/62
[2021-05-03] MEDS: inSUlin ASPART (NovoLOG) 1 UNIT/0.01 ML (CHARGE PER UNIT) SC SCH ×4 (05:19→21:36)
[2021-05-03] MEDS: VENlafaxine XR 75 MG (EFFEXOR XR) CAP PO SCH (05:27)
[2021-05-03 08:00] VITALS: BP 149/77
[2021-05-03] MEDS: SINEMET CR 50/200 (CARBIDOPA/LEVODOPA SA) TAB PO SCH ×3 (08:24→21:33)
[2021-05-03] MEDS: PANTOPRAZOLE 40 MG (PROTONIX) TAB PO SCH (08:24)
[2021-05-03] MEDS: MONTELUKAST 10 MG (SINGULAIR) TAB PO SCH (08:24)
[2021-05-03] MEDS: CLOPIDOGREL 75 MG (PLAVIX) TABLET PO SCH (08:25)
[2021-05-03] MEDS: guaiFENesin (MUCINEX) 600 MG TAB PO SCH ×2 (08:25→21:33)
[2021-05-03] MEDS: ISOSORBIDE MONONITRATE 30 MG (IMDUR) TAB PO SCH (08:25)
[2021-05-03] MEDS: APIXABAN 5 MG (ELIQUIS) TABLET PO SCH ×2 (08:25→21:33)
--- NOTE | 2021-05-03 08:42 | Progress Note ---
Subjective Subjective Date Seen by Provider: May 03, 2021 Time Seen by Provider: 08:40 PT REPORTS THAT HE FEELS A LITTLE BIT BETTER TODAY, HOWEVER HE DOES ADMIT TO FEELING SOMEWHAT SHORT OF BREATH WHEN OFF OF THE BIPAP, BUT HE IS BETTER OVERALL. HE IS ASKING TODAY WHAT HIS OVERALL PROGNOSIS IS, WILL HE LIVE, HIS FAMILY WANTS TO KNOW IF THE RADIATION OF HIS SKIN CANCER IS NECESSARY FOR HIS OVERALL HEALTH. HIS APPETITE CONTINUES TO BE IMPROVED. Review of Systems General: Fatigue, Malaise HEENT: No Dysphasia, No Sore Throat Pulmonary: Dyspnea, Cough (PRODUCTIVE) Cardiovascular: No: Chest Pain, Palpitations Gastrointestinal: No: Nausea, Vomiting, Diarrhea, Constipation Genitourinary: No Dysuria; Frequency Neurological: Weakness; No: Confusion All Other Systems Reviewed All Other Systems Reviewed: Yes Objective Exam Vital Signs Vital Signs Date Time Temp Pulse Resp B/P (MAP) Pulse Ox O2 Delivery O2 Flow Rate FiO2 05/03/21 08:00 35.0 55 16 149/77 (101) 97 NIV Bilevel 35.00 05/03/21 07:00 90 05/03/21 06:46 54 29 99 35.00 05/03/21 03:42 27 96 35.00 05/03/21 03:37 36.6 79 20 172/62 (98) 100 NIV Bilevel 35.00 05/03/21 01:02 77 05/02/21 23:30 36.7 59 20 149/74 (99) 100 NIV Bilevel 35.00 05/02/21 22:11 27 95 35.00 05/02/21 20:20 36.0 70 24 139/61 (87) 99 NIV Bilevel 35.00 05/02/21 20:10 NIV Bilevel 35 05/02/21 19:08 80 05/02/21 18:55 27 97 35.00 05/02/21 16:00 36.3 84 24 152/69 (96) 100 NIV Bilevel 35.00 05/02/21 14:10 26 35.00 05/02/21 12:49 87 05/02/21 12:00 36.1 92 20 142/51 (81) NIV Bilevel 35.00 05/02/21 10:50 24 35.00 I & O 05/03/21 06:59 Intake Total 2985 ml Output Total 1550 ml Balance 1435 ml General Appearance: WD/WN, Chronically ill, Mild Distress (FORCE OF SPEECH DUE TO DIFFICULTY BREATHING) Eyes: Bilateral Eye Normal Inspection, Bilateral Eye PERRL, Bilateral Eye EOMI HEENT: PERRL/EOMI Neck: Full Range of Motion, Supple Respiratory: Chest Non Tender, No Accessory Muscle Use, Decreased Breath Sounds, Wheezing Cardiovascular: Regular Rate, Rhythm, Normal Peripheral Pulses Gastrointestinal: Normal Bowel Sounds, No Organomegaly, No Pulsatile Mass, Non Tender, Soft Rectal: Deferred Extremity: Normal Capillary Refill, Non Tender, No Pedal Edema Neurologic/Psychiatric: Alert, Oriented x3, No Motor/Sensory Deficits, Normal 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/Affect, 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 Norm as Tested Skin: Ecchymosis (BILATERAL ARMS), Other (RIGHT SIDED FACIAL SQUAMOUS CELL CARCINOMA) Lymphatic: No Adenopathy Results Lab Laboratory Tests 05/02/21 11:31: Glucometer 184H 05/02/21 15:59: Glucometer 220H 05/02/21 17:56: Vancomycin Level Trough 8.5L 05/02/21 20:35: Glucometer 180H 05/03/21 05:14: Glucometer 128H Microbiology 04/29/21 Gram Stain - Final, Resulted 04/29/21 Wound Culture - Preliminary, Resulted YEAST Staph, Coag Neg (PBX WIRE CHIEF) 04/29/21 Blood Culture - Preliminary, Resulted No growth Assessment/Plan Assessment/Plan Admission Dx ACUTE ON CHRONIC RESPIRATORY FAILURE COPD EXACERBATION SEPSIS HX OF MRSA SKIN CANCER RIGHT CHEEK/FACE DIABETES MELLITUS DEPRESSION LEUKOCYTOSIS PARKINSON'S DISEASE ANEMIA Assessment and Plan ACUTE ON CHRONIC RESPIRATORY FAILURE COPD EXACERBATION SEPSIS HX OF MRSA SKIN CANCER RIGHT CHEEK/FACE DIABETES MELLITUS DEPRESSION LEUKOCYTOSIS PARKINSON'S DISEASE ANEMIA ACUTE ON CHRONIC RESPIRATORY FAILURE WITH COPD EXACERBATION - IMPROVED, CONTINUE WITH HOME REGIMEN - ADDED STEROID - SOLUMEDROL TO CURRENT TREATMENT REGIMEN - WILL WEAN DOWN TOMORROW - WILL LOOK INTO SWING BED, DISCUSSED WITH PT AND HIS FAMILY AND SWING BED COORDINATOR. SEPSIS WITH HX OF MRSA - PT ON VANCOMYCIN DIABETES MELLITUS TYPE 2 - FSBS, PT ON INSULIN - LEVEMIR 20 UNITS HYPERTENSION - PT ON CURRENT HOME REGIMEN - AMLODIPINE 5MG, LOSARTAN 100MG LEUKOCYTOSIS - WBC'S IMPROVED AT THIS TIME - WILL MONITOR LABS SERIALLY - WOULD ANTICIPATE AN INCREASE DUE TO IV STEROIDS. PARKINSON'S DISEASE - PT ON SINEMET 25/100MG TID - CONTINUE CURRENT REGIMEN SKIN CANCER - PT RECEIVING RADIATION CANNOT RESTART UNTIL HE IS OFF OF VAPOTHERM/BIPAP. GI PROPHYLAXIS WITH PPI AND PROBIOTICS DVT PROPHYLAXIS WITH BLOOD THINNERS AND SCD'S DISCUSSED CASE WITH HIS SON, HE WILL NEED TO BE PLACED IN A SENIOR CARE ON DISCHARGE SINCE DEVIN CANNOT MANAGE TO CARE FOR HIMSELF IN HIS CURRENT DEBILITATED STATE. Admission Dx ACUTE ON CHRONIC RESPIRATORY FAILURE COPD EXACERBATION SEPSIS HX OF MRSA SKIN CANCER RIGHT CHEEK/FACE DIABETES MELLITUS DEPRESSION LEUKOCYTOSIS PARKINSON'S DISEASE ANEMIA Clinical Quality Measures Admission Status Admission Dx ACUTE ON CHRONIC RESPIRATORY FAILURE COPD EXACERBATION SEPSIS HX OF MRSA SKIN CANCER RIGHT CHEEK/FACE DIABETES MELLITUS DEPRESSION LEUKOCYTOSIS PARKINSON'S DISEASE ANEMIA FARZAD FOX MD May 03, 2021 08:42
[2021-05-03] MEDS ORDERED: FLUCONAZOLE 200 MG/100 ML 100 ML IV ONE (09:30)
[2021-05-03] MEDS: SILVER SULFADIAZINE 400 GM CREAM TP SCH ×2 (09:32→21:33)
--- NOTE | 2021-05-03 11:50 | Diagnostic Imaging Report ---
INDICATION: Respiratory distress. EXAMINATION: Portable chest at 11:12 AM. FINDINGS: The heart size and pulmonary vascularity are normal. The lungs are clear. There are no effusions or pneumothoraces. The left IJ central line tip projects over the SVC. IMPRESSION: Negative chest. Dictated by: Dictated on workstation # [id number]
[2021-05-03 12:00] VITALS: BP 180/91
--- NOTE | 2021-05-03 12:08 | Physical Therapy Evaluation ---
PT Evaluation-General Medical Diagnosis Admission Date Apr 29, 2021 at 16:58 Medical Diagnosis: respiratory failure/sepsis Onset Date: Apr 29, 2021 Therapy Diagnosis Therapy Diagnosis: debility/weakness Height/Weight Height (Feet): 6 Height (Inches): 0.00 Weight (Pounds): 204 Weight (Ounces): 9.0 Precautions Precautions/Isolations: Fall Prevention, Standard Precautions Referral Physician: Maria Luz Reason for Referral: Evaluation/Treatment Medical History Pertinent Medical History: CAD, COPD, DM, Heart Failure, HTN, [place], Parkinson's Current History EMS secondary to increase SOA Reviewed History: Yes Social History Home: Single Level Prior Prior Level of Function SCALE: Activities may be completed with or without assistive devices. 6-Xvtdaqfxha-wmwveez completes the activity by him/herself with no assistance from a helper. 5-Set-up or Clean-up Assistance-helper sets up or cleans up; patient completes activity. [place] assists only prior to or following the activity. 4-Supervision or Touching Assistance-helper provides verbal cues and/or touching/steadying and/or contact guard assistance as patient completes activity. Assistance may be provided throughout the activity or intermittently. 3-Partial/Moderate Assistance-helper does LESS THAN HALF the effort. [place] lifts, holds or supports trunk or limbs, but provides less than half the effort. 2-Substantial/Maximal Assistance-helper does MORE THAN HALF the effort. [place] lifts or holds trunk or limbs and provides more than half the effort. 4-Dkvasqedi-knchwy does ALL the effort. Patient does none of the effort to complete the activity. Or, the assistance of 2 or more helpers is required for the patient to complete the activity. If activity was not attempted, code reason: 7-Patient Refused. 9-Not Applicable-not attempted and the patient did not perform the activity before the current illness, exacerbation or injury. 10-Not Attempted due to Environmental Limitations-(lack of equipment, weather restraints, etc.). 88-Not Attempted due to Medical Conditions or Safety Concerns. Bed Mobility: 6 Transfers (B,C,W/C): 6 Gait: 6 Indoor Mobility (Ambulation): Independent Stairs: Independent Prior Devices Use: None PT Evaluation-Current Subjective Patient agrees to PT. Switched from BiPap to Vapotherm per RT. Objective Patient Orientation: Normal For Age Attachments: Central Line, Oxygen ROM/Strength ROM Lower Extremities bilateral LE WFL Strength Lower Extremities 4/5 grossly bilateral LE Integumentary/Posture Bowel Incontinence: No Bladder Incontinence: No Posture WFL Neuromuscular (Tone, Coordination, Reflexes) grossly intact Sensory Vision: Functional Hearing: Impaired Transfers Lying to Sitting/Side of Bed(Q: 6 Sit to Stand (QC): 6 Chair/Fwg-bu-Zshfz Xfer(QC): 6 Toilet Transfer (QC): 6 Gait Does the Patient Walk?: Yes Mode of Locomotion: Walk Anticipated Mode of Locomotion: Walk Walk 10 feet (QC): 6 Distance: 10' x 2 Gait Assistive Device: None Comments/Gait Description limited by Vapotherm/safe and functional gait sequence Balance Sitting Static: Normal Sitting Dynamic: Normal Standing Static: Normal Standing Dynamic: Normal Assessment/Needs 80 y.o. male, will be seen by skilled PT to address functional mobility to improve pulmonary function. Patient limited by BiPap/Vapotherm (lung function) Rehab Potential: Guarded PT Cardiology Technologist Goals Cardiology Technologist Goals PT Cardiology Technologist Goals Time Frame: May 14, 2021 Roll Left & Right (QC): 6 Sit to Lying (QC): 6 Lying-Sitting on Side/Bed(QC): 6 Sit to Stand (QC): 6 Chair/Kzu-cj-Ywenm Xfer(QC): 6 Toilet Transfer (QC): 6 Does the Patient Walk: Yes Walk 10 feet (QC): 6 Walk 50ft with 2 Turns (QC): 6 Walk 150 ft (QC): 6 PT Plan Problem List Problem List: Activity Tolerance Treatment/Plan Treatment Plan: Continue Plan of Care Treatment Plan: Education, Functional Activity Palmer, Functional Strength, Gait, Safety, Therapeutic Exercise Treatment Duration: May 14, 2021 Frequency: 6 times per week Estimated Hrs Per Day: .25 hour per day Patient and/or Family Agrees t: Yes Time/GCodes Time In: 1055 Time Out: 1111 Total Billed Treatment Time: 16 Total Billed Treatment 1 visit EVMod 16 min EDUARD OVIEDO PT May 03, 2021 12:08
--- NOTE | 2021-05-03 12:31 | Occupational Therapy Eval ---
OT Evaluation-General/PLF Medical Diagnosis Admission Date Apr 29, 2021 at 16:58 Medical Diagnosis: respiratory failure/sepsis Onset Date: Apr 29, 2021 Therapy Diagnosis Therapy Diagnosis: decreased activity tolerance Height/Weight Height (Feet): 6 Height (Inches): 0.00 Weight (Pounds): 204 Weight (Ounces): 9.0 Precautions Precautions/Isolations: Fall Prevention, Standard Precautions Referral Physician: Maria Luz Referral Reason: Evaluation/Treatment Medical History Pertinent Medical History: CAD, COPD, DM, Heart Failure, HTN, DC, Parkinson's Additional Medical History pneumonia, sleep apnea, COPD, coronary stent, CAD, HTN, Parkinsons, Arthritis, DM, eczema, anxiety, skin cancer with radiation Current History ED due to SOB and weakness Social History Home: Single Level Current Living Status: Alone ADL-Prior Level of Function SCALE: Activities may be completed with or without assistive devices. 4-Xirrqojfaf-fnffosj completes the activity by him/herself with no assistance from a helper. 5-Set-up or Clean-up Assistance-helper sets up or cleans up; patient completes activity. [place] assists only prior to or following the activity. 4-Supervision or Touching Assistance-helper provides verbal cues and/or touching/steadying and/or contact guard assistance as patient completes activity. Assistance may be provided throughout the activity or intermittently. 3-Partial/Moderate Assistance-helper does LESS THAN HALF the effort. [place] lifts, holds or supports trunk or limbs, but provides less than half the effort. 2-Substantial/Maximal Assistance-helper does MORE THAN HALF the effort. [place] lifts or holds trunk or limbs and provides more than half the effort. 3-Nkhnfmnic-hardek does ALL the effort. Patient does none of the effort to complete the activity. Or, the assistance of 2 or more helpers is required for the patient to complete the activity. If activity was not attempted, code reason: 7-Patient Refused. 9-Not Applicable-not attempted and the patient did not perform the activity before the current illness, exacerbation or injury. 10-Not Attempted due to Environmental Limitations-(lack of equipment, weather restraints, etc.). 88-Not Attempted due to Medical Conditions or Safety Concerns. ADL PLOF Comments Pt reports IND at PLOF with ADLs and functional mobility without AD Self Care: Independent Functional Cognition: Independent DME/Equipment: Shower OT Current Status Subjective Pt seated in recliner, agreeable to OT tx. Pt states he feels like he is at PLOF Mental Status/Objective Patient Orientation: Person, Place, Time, Situation Attachments: Oxygen (vapotherm) Current Upper Extremity ROM BUE shoulder flexion to approx 150 degrees, WFL Upper Extremity Coordination WFL Upper Extremity Sensation WFL Upper Extremity Strength grossly 5/5 BUEs ADL-Treatment Eating (QC): 6 Oral Hygiene (QC): 6 On/Off Footwear (QC): 6 Toileting Hygiene (QC): 6 Other Treatments Pt seated in recliner, OT educated pt on purpose and benefit of OT, he verbalized understanidng. Pt provided information about PLOF and home set up, and participated in UE Screen. Pt stood from chair, IND and able to stand a few minutes. Per PT evaluation, pt IND ambulating 10'x2 without AD, limited by Vapo therm. Pt indicates he feels like he is at his PLOF, and has no concerns with ability to complete ADLS at discharge. Pt states he does not wish for further OT services at this time. Post tx, pt seated in recliner, call light in reach and all needs met. Education OT Patient Education: Correct positioning, Modified ADL techniques, Progress toward Goal/Update tx plan, Purpose of tx/functional activities Teaching Recipient: Patient Teaching Methods: Discussion Response to Teaching: Verbalize Understanding OT Administrative Staff Supervisor Goals Administrative Staff Supervisor Goals 1=Demonstrate adherence to instructed precautions during ADL tasks. 2=Patient will verbalize/demonstrate understanding of assistive devices/modifications for ADL. 3=Patient will improve strength/tolerance for activity to enable patient to perform ADL's. OT Education/Plan Problem List/Assessment Assessment: No Skilled OT Needs ID'd No skilled OT services indicated at this time as pt is independent with ADLs and functional mobility and at PLOF. Discharge Recommendations Plan/Recommendations: Discharge/Goals Met Treatment Plan/Plan of Care Patient would benefit from OT for education, treatment and training to promote independence in ADL's, mobility, safety and/or upper extremity function for ADL's. Plan of Care: ADL Retraining, Functional Mobility, UE Funct Exercise/Act Treatment Duration: May 03, 2021 Frequency: 1 time per week (eval only) Time/GCodes Start Time: 11:22 Stop Time: 11:30 Total Time Billed (hr/min): 8 Billed Treatment Time 1, KARLA CARBAJAL OT May 03, 2021 12:31
[2021-05-03 16:21] VITALS: BP 142/66
[2021-05-03] MEDS: VANCOMYCIN 1500 MG/NS 500 ML IVPB IV SCH ×2 (18:19)
[2021-05-03] MEDS: MIRTAZAPINE 15 MG (REMERON) TAB PO SCH (21:33)
[2021-05-03] MEDS: GABAPENTIN 600 MG (NEURONTIN) TAB PO SCH (21:35)
[2021-05-03] MEDS: MELATONIN 3 MG TABLET PO PRN (22:06)
[2021-05-03 23:49] VITALS: BP 147/61
[2021-05-04] MEDS: RT-ALBUTEROL/IPRATROPIUM 3 ML (DUONEB) VIAL INH SCH ×3 (01:56→11:00)
[2021-05-04 04:20] VITALS: BP 121/55
[2021-05-04] MEDS: NS IV 1000 ML 1,000 ML IV SCH ×2 (05:29→12:00)
[2021-05-04 05:42] LABS: HEMATOCRIT 25 % (40-54); HEMOGLOBIN 7.8 g/dL (13.3-17.7); MEAN CORPUSCULAR HEMOGLOBIN 30 pg (25-34); MEAN CORPUSCULAR HGB CONC 32 g/dL (32-36); MEAN CORPUSCULAR VOLUME 93 fL (80-99); MEAN PLATELET VOLUME 9.5 fL (9.0-12.2); PLATELET COUNT 135 10^3/uL (130-400)
[2021-05-04 05:52] LABS: POTASSIUM 3.4 MMOL/L (3.6-5.0)
[2021-05-04 05:53] LABS: CALCIUM 7.3 MG/DL (8.5-10.1)
[2021-05-04 05:57] LABS: CREATININE SERUM 0.7 MG/DL (0.60-1.30)
[2021-05-04] MEDS: methylPREDNISolone 40 MG/ML (Solu-MEDROL) VIAL IV SCH ×2 (06:02→11:59)
[2021-05-04] MEDS: VENlafaxine XR 75 MG (EFFEXOR XR) CAP PO SCH (06:02)
[2021-05-04] MEDS: inSUlin ASPART (NovoLOG) 1 UNIT/0.01 ML (CHARGE PER UNIT) SC SCH ×2 (06:02→10:46)
[2021-05-04 08:00] VITALS: BP 168/81
--- NOTE | 2021-05-04 08:20 | Progress Note - Hospitalist ---
Subjective HPI/CC On Admission Date Seen by Provider: May 04, 2021 Time Seen by Provider: 08:00 DEVIN IS A 80 Y/O MALE WHO IS A CLINIC PATIENT OF DR. JACKMAN [employer] I AM [employer]. HE IS UP IN BED THIS MORNING, JUST ATE BREAKFAST. HE IS TOLERATING BIPAP WELL. STATES HE IS STILL SOA ON VAPOTHERM AFTER MEALS. DENIES ABDOMINAL PAIN. PT HAS GOOD APPETITE. Review of Systems Pulmonary: Dyspnea, Cough Cardiovascular: No: Chest Pain, Palpitations Gastrointestinal: No: Nausea, Vomiting, Diarrhea, Constipation Objective Exam Vital Signs Vital Signs Date Time Temp Pulse Resp B/P (MAP) Pulse Ox O2 Delivery O2 Flow Rate FiO2 05/04/21 08:00 36.4 76 16 168/81 (110) 100 Vapotherm 40.00 100.00 05/04/21 06:56 100 Capillary Refill : Less Than 3 Seconds General Appearance: Chronically ill Respiratory: Accessory Muscle Use, Crackles, Decreased Breath Sounds, Wheezing Cardiovascular: Normal Peripheral Pulses, Irregularly Irregular Gastrointestinal: Normal Bowel Sounds, No Organomegaly, No Pulsatile Mass, Non Tender, Soft Back: Normal Inspection Extremity: Normal Capillary Refill, Normal Inspection, Pedal Edema Neurologic/Psychiatric: Alert, Oriented x3 Skin: Normal Color, Warm/Dry Results/Procedures Lab Laboratory Tests 05/04/21 05:30 Patient resulted labs reviewed. Imaging: Reviewed Imaging Films, Reviewed Imaging Report Assessment/Plan Assessment and Plan Assess & Plan/Chief Complaint COPD EXACERBATION SEPSIS HX OF MRSA SKIN CANCER RIGHT CHEEK/FACE DIABETES MELLITUS DEPRESSION LEUKOCYTOSIS PARKINSON'S DISEASE ANEMIA ACUTE ON CHRONIC RESPIRATORY FAILURE WITH COPD EXACERBATION - IMPROVED, CONTINUE WITH HOME REGIMEN - ADD STEROID - SOLUMEDROL TO CURRENT TREATMENT REGIMEN - PT TOLERATING BIPAP WELL. -CONTINUE BIPAP DURING THE DAY AND NIGHT. SWITCH TO VAPOTHERM WHILE EATING, BUT RETURN TO BIPAP 1 HR AFTER MEALS. 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 -ADVISED PT IT IS SAFE TO TAKE MUCINEX FOR INCREASED MUCOUS PRODUCTION. SEPSIS WITH HX OF MRSA - PT ON VANCOMYCIN DIABETES MELLITUS TYPE 2 - FSBS, PT ON INSULIN - LEVEMIR 20 UNITS HYPERTENSION - PT ON CURRENT HOME REGIMEN - AMLODIPINE 5MG, LOSARTAN 100MG LEUKOCYTOSIS - IMPROVING, WILL CONTINUE TO MONITOR PARKINSON'S DISEASE - PT ON SINEMET 25/100MG TID - CONTINUE CURRENT REGIMEN SKIN CANCER - CANCER CENTER CONTACTED YESTERDAY TO RESUME RADIATION. ANEMIA -H/H DECREASED TO 7.8 AND 25 HYPOKALEMIA - GI PROPHYLAXIS WITH PPI AND PROBIOTICS DVT PROPHYLAXIS WITH BLOOD THINNERS AND SCD'S DISCUSSED CASE WITH HIS FAMILY, HE WILL NEED TO BE PLACED IN A PENITENTIARY ON DISCHARGE SINCE DEVIN CANNOT MANAGE TO CARE FOR HIMSELF IN HIS CURRENT DEBILITATED STATE. PT AND FAMILY AGREE THIS IS BEST. FLOYD CALVO MED STUDENT May 04, 2021 08:20
[2021-05-04] MEDS ORDERED: fluCOnazole (DIFLUCAN) 100 MG TAB PO SCH (09:00)
[2021-05-04] MEDS: guaiFENesin (MUCINEX) 600 MG TAB PO SCH (09:09)
[2021-05-04] MEDS: ISOSORBIDE MONONITRATE 30 MG (IMDUR) TAB PO SCH (09:09)
[2021-05-04] MEDS: CLOPIDOGREL 75 MG (PLAVIX) TABLET PO SCH (09:09)
[2021-05-04] MEDS: PANTOPRAZOLE 40 MG (PROTONIX) TAB PO SCH (09:09)
[2021-05-04] MEDS: SILVER SULFADIAZINE 400 GM CREAM TP SCH (09:09)
[2021-05-04] MEDS: APIXABAN 5 MG (ELIQUIS) TABLET PO SCH (09:09)
[2021-05-04] MEDS: MONTELUKAST 10 MG (SINGULAIR) TAB PO SCH (09:09)
[2021-05-04] MEDS: SINEMET CR 50/200 (CARBIDOPA/LEVODOPA SA) TAB PO SCH ×2 (09:09→11:59)
--- NOTE | 2021-05-04 09:29 | Physical Therapy Progress Note ---
Therapy Progress Note Patient is currently on Vapotherm and independent with bed mobility, transfers, etc. Patient refused PT stating,"I'm tired and I can get up myself." RN notified. Will attempt tomorrow a.m. with probable dismissal from services due to independence. SW notified. 1 ref ([phone]) EDUARD OVIEDO PT May 04, 2021 09:29
[2021-05-04 11:43] VITALS: BP 169/85
[2021-05-04] MEDS ORDERED: RT-ALBUTEROL/IPRATROPIUM 3 ML (DUONEB) VIAL INH SCH (14:00)
[2021-05-04] MEDS ORDERED: TROUGH ORDER-PHARMACY XX ONE (17:30)
== END 2021-05-04 12:31 | disposition swing bed (61) | DRG 871 ==
LOC: EDUNIT# 14:45 → ER 14:46 → 4TH 16:58
PROVIDERS: ADMIT Family Medicine; ATTEND Family Medicine
PROC: 5A09457 Assistance with Respiratory Ventilation, 24-96 Consecutive Hours, Continuous Positive Airway Pressure (ICD-10-PCS; 2021-04-29)
PROC: 02HV33Z Insertion of Infusion Device into Superior Vena Cava, Percutaneous Approach (ICD-10-PCS; principal; 2021-04-30)
DX: A41.9 Sepsis, unspecified organism (principal); J96.21 Acute and chronic respiratory failure with hypoxia; J44.1 Chronic obstructive pulmonary disease with (acute) exacerbation; D62 Acute posthemorrhagic anemia; Z66 Do not resuscitate; G47.39 Other sleep apnea; I25.10 Atherosclerotic heart disease of native coronary artery without angina pectoris; I25.2 Old myocardial infarction; E78.00 Pure hypercholesterolemia, unspecified; I10 Essential (primary) hypertension; G20 Parkinson's disease; K21.9 Gastro-esophageal reflux disease without esophagitis; G89.29 Other chronic pain; M25.561 Pain in right knee; M19.90 Unspecified osteoarthritis, unspecified site; E11.9 Type 2 diabetes mellitus without complications; F41.9 Anxiety disorder, unspecified; C76.0 Malignant neoplasm of head, face and neck; Z20.822 Contact with and (suspected) exposure to COVID-19; D72.829 Elevated white blood cell count, unspecified; T38.0X5A Adverse effect of glucocorticoids and synthetic analogues, initial encounter; F32.9 Major depressive disorder, single episode, unspecified; I87.2 Venous insufficiency (chronic) (peripheral); N40.0 Benign prostatic hyperplasia without lower urinary tract symptoms; Z99.81 Dependence on supplemental oxygen; Z86.16 Personal history of COVID-19; Z79.4 Long term (current) use of insulin; Z79.899 Other long term (current) drug therapy; Z95.5 Presence of coronary angioplasty implant and graft; Z86.14 Personal history of Methicillin resistant Staphylococcus aureus infection
CPT/HCPCS: 36415; 71045; 80048; 80053; 80202; 82805; 82947; 83605; 83880; 84484; 85007; 85027; 85610; 85730; 86850; 86900; 86901; 87040; 87070; 87077; 87205; 87636; 93005; 94640; 94660; 96361; 96365

== ENCOUNTER 2021-05-04 11:19 | Inpatient (IN) | payer MEDICARE ==
[~2021-05-04] VITALS: Ht 182 cm; Wt 77.0 kg
[2021-05-04] MEDS ORDERED: RT-ALBUTEROL/IPRATROPIUM 3 ML (DUONEB) VIAL INH PRN (12:45)
[2021-05-04] MEDS ORDERED: LORazepam INJ 2 MG/ML (ATIVAN) VIAL IVP PRN (12:45)
--- NOTE | 2021-05-04 13:16 | Occ Therapy Progress Note ---
Therapy Progress Note OT orders received, OT attempted evaluation on this date. Pt laying in bed sleeping, with BiPAP on. He was initially agreeable to OT tx, but when encouraged to do exercises he refuses stating he would like to sleep. OT informed pt on purpose and benefit of OT, including focus on strengthening and increasing activity tolerance. He verbalized understanding but indicates he would like to sleep and refuses therapy at this time. OT will attempt evaluation tomorrow. 1, refusal [phone] KARLA ROJAS OT May 04, 2021 13:16
--- NOTE | 2021-05-04 13:42 | Physical Therapy Progress Note ---
Therapy Progress Note Patient on BiPap. Patient declined PT due to extreme fatigue. PT notified SW and will attempt in a.m. 1 ref ([id number]) EDUARD OVIEDO PT May 04, 2021 13:42
[2021-05-04] MEDS: SINEMET CR 50/200 (CARBIDOPA/LEVODOPA SA) TAB PO SCH ×2 (13:43→21:16)
[2021-05-04] MEDS ORDERED: CATHETER FLUSH 10 ML SYR IV PRN (14:00)
[2021-05-04] MEDS: RT-ALBUTEROL/IPRATROPIUM 3 ML (DUONEB) VIAL INH SCH ×3 (14:32→20:52)
[2021-05-04] MEDS: inSUlin ASPART (NovoLOG) 1 UNIT/0.01 ML (CHARGE PER UNIT) SC SCH ×2 (16:42→21:16)
[2021-05-04] MEDS ORDERED: TROUGH ORDER-PHARMACY XX ONE (17:30)
[2021-05-04 18:02] VITALS: BP 149/76
[2021-05-04] MEDS ORDERED: VANCOMYCIN INJECTION 1,500 MG in NS IV 500 ML 500 ML IV SCH (18:30)
[2021-05-04] MEDS: methylPREDNISolone 40 MG/ML (Solu-MEDROL) VIAL IV SCH (18:42)
[2021-05-04] MEDS: VANCOMYCIN 2000 MG/NS 500 ML IVPB IV SCH ×2 (18:43)
[2021-05-04] MEDS: RT--FLUTICASONE/SALMETEROL 232-14 (AIRDUO RespiCLICK) IH SCH (20:55)
[2021-05-04] MEDS ORDERED: PANTOPRAZOLE 40 MG (PROTONIX) VIAL IV ONE (21:00)
[2021-05-04] MEDS ORDERED: SUCRALFATE 1 GM (CARAFATE) TAB PO ONE (21:00)
[2021-05-04] MEDS ORDERED: SUCRALFATE 1 GM (CARAFATE) TAB ONE (21:08)
[2021-05-04] MEDS ORDERED: PANTOPRAZOLE 40 MG (PROTONIX) VIAL ONE (21:08)
[2021-05-04] MEDS: NS IV 1000 ML 1,000 ML IV SCH (21:14)
[2021-05-04] MEDS: guaiFENesin (MUCINEX) 600 MG TAB PO SCH (21:15)
[2021-05-04] MEDS: MELATONIN 3 MG TABLET PO PRN (21:15)
[2021-05-04] MEDS: MIRTAZAPINE 15 MG (REMERON) TAB PO SCH (21:16)
[2021-05-04] MEDS: GABAPENTIN 600 MG (NEURONTIN) TAB PO SCH (21:16)
[2021-05-04] MEDS: APIXABAN 5 MG (ELIQUIS) TABLET PO SCH (21:16)
[2021-05-04] MEDS: SILVER SULFADIAZINE 400 GM CREAM TP SCH (21:17)
[2021-05-04] MEDS: LORazepam INJ 2 MG/ML (ATIVAN) VIAL IVP PRN (21:17)
[2021-05-04 23:35] VITALS: BP 140/65
[2021-05-05] VITALS (9 sets, daily range): BP systolic 103–164; BP diastolic 58–78
[2021-05-05] MEDS: methylPREDNISolone 40 MG/ML (Solu-MEDROL) VIAL IV SCH ×4 (00:16→18:10)
[2021-05-05] MEDS: RT-ALBUTEROL/IPRATROPIUM 3 ML (DUONEB) VIAL INH SCH ×6 (02:51→23:02)
[2021-05-05] MEDS: inSUlin ASPART (NovoLOG) 1 UNIT/0.01 ML (CHARGE PER UNIT) SC SCH ×4 (06:11→20:38)
[2021-05-05] MEDS: VENlafaxine XR 75 MG (EFFEXOR XR) CAP PO SCH (06:11)
[2021-05-05 06:29] LABS: HEMOGLOBIN 7.6 g/dL (13.3-17.7)
[2021-05-05 06:31] LABS: MEAN PLATELET VOLUME 9.9 fL (9.0-12.2); WHITE BLOOD COUNT 9.3 10^3/uL (4.3-11.0)
[2021-05-05 06:55] LABS: ALANINE AMINOTRANSFERASE < 6 U/L (0-55); ALBUMIN 2.8 GM/DL (3.2-4.5); ALKALINE PHOSPHATASE 44 U/L (40-136); BILIRUBIN,TOTAL 0.3 MG/DL (0.1-1.0); BUN/CREATININE RATIO 24; CALCIUM 7.4 MG/DL (8.5-10.1); CARBON DIOXIDE 31 MMOL/L (21-32); CHLORIDE 104 MMOL/L (98-107); GFR ESTIMATED 109; POTASSIUM 3.5 MMOL/L (3.6-5.0); SODIUM 142 MMOL/L (135-145)
[2021-05-05 07:04] LABS: GLUCOSE 42 MG/DL (70-105)
[2021-05-05] MEDS: RT--FLUTICASONE/SALMETEROL 232-14 (AIRDUO RespiCLICK) IH SCH ×2 (07:08→19:37)
[2021-05-05] MEDS: UMECLIDINIUM BROMIDE (INCRUSE ELLIPTA) 7'S IH SCH (07:09)
--- NOTE | 2021-05-05 07:50 | Diagnostic Imaging Report ---
Indication: COPD pneumonia. Comparison made with prior examination from 05/03/2021 FINDINGS: The heart size is normal. There is mild venous congestion. There are patchy bibasal infiltrates. There is no pleural effusion or pneumothorax. The mediastinum is unremarkable. IMPRESSION: Patchy bibasilar pulmonary infiltrates. Mild central pulmonary venous congestion. Dictated by: Dictated on workstation # [id number]
--- NOTE | 2021-05-05 08:23 | Progress Note - Hospitalist ---
Subjective HPI/CC On Admission Date Seen by Provider: May 05, 2021 Time Seen by Provider: 08:00 COPD EXACERBATION LEUKOCYTOSIS Subjective/Events-last exam PT IS UP IN BED EATING BREAKFAST ON VAPOTHERM. PT STATES HE IS STILL SOA ON VAPOTHERM, BUT THIS IIMPROVES WHEN ON BIPAP. TOLERATING BIPAP WELL. PT DENIES PAIN. CONFIRMS GOOD APPETITE. DISCUSSED WITH PT THAT HE WILL HAVE BATH AND BEDDING CHANGE TODAY. Objective Exam Vital Signs Vital Signs Date Time Temp Pulse Resp B/P (MAP) Pulse Ox O2 Delivery O2 Flow Rate FiO2 05/05/21 08:05 36.6 62 20 164/63 (96) 99 Vapotherm 30.00 90.00 05/04/21 21:20 35 Capillary Refill : Results/Procedures Lab Laboratory Tests 05/05/21 06:16 Patient resulted labs reviewed. FLOYD CALVO MED STUDENT May 05, 2021 08:23
[2021-05-05] MEDS ORDERED: NS IV 500 ML 500 ML IV SCH (08:30)
[2021-05-05] MEDS ORDERED: KCL 20 MEQ TAB (K-DUR) PO NR (08:35)
[2021-05-05] MEDS ORDERED: FUROSEMIDE 40 MG/4 ML INJ (LASIX) IVP NR (08:35)
[2021-05-05] MEDS ORDERED: PANTOPRAZOLE 40 MG (PROTONIX) TAB PO SCH (09:00)
[2021-05-05] MEDS: guaiFENesin (MUCINEX) 600 MG TAB PO SCH ×2 (09:10→20:35)
[2021-05-05] MEDS: fluCOnazole (DIFLUCAN) 100 MG TAB PO SCH (09:10)
[2021-05-05] MEDS: PANTOPRAZOLE 40 MG (PROTONIX) TAB PO SCH ×2 (09:10→20:35)
[2021-05-05] MEDS: APIXABAN 5 MG (ELIQUIS) TABLET PO SCH ×2 (09:10→20:35)
[2021-05-05] MEDS: MONTELUKAST 10 MG (SINGULAIR) TAB PO SCH (09:10)
[2021-05-05] MEDS: SINEMET CR 50/200 (CARBIDOPA/LEVODOPA SA) TAB PO SCH ×3 (09:10→20:35)
[2021-05-05] MEDS: ISOSORBIDE MONONITRATE 30 MG (IMDUR) TAB PO SCH (09:10)
[2021-05-05] MEDS: CLOPIDOGREL 75 MG (PLAVIX) TABLET PO SCH (09:10)
[2021-05-05] MEDS: SILVER SULFADIAZINE 400 GM CREAM TP SCH ×2 (09:11→20:35)
--- NOTE | 2021-05-05 09:48 | Physical Therapy Progress Note ---
Therapy Progress Note Patient refused PT stating, "I'm tired." He then closed his eyes and would not answer PT questions. SW coordinator and physician notified. Patient currently on BiPap. 1 ref ([phone]) EDUARD OVIEDO PT May 05, 2021 09:48
[2021-05-05] MEDS: LORazepam INJ 2 MG/ML (ATIVAN) VIAL IVP PRN ×2 (10:02→14:08)
[2021-05-05] MEDS: PIPERACILLIN/TAZOBACTAM (BULK) 4.5 GM in NS (IVPB) 100 ML IV SCH ×2 (10:37→16:30)
--- NOTE | 2021-05-05 13:01 | Progress Note ---
Subjective Date Seen by a Provider: May 05, 2021 Time Seen by a Provider: 08:30 Subjective/Events-last exam Fwup acute on chronic respiratory failure, pneumonia, recent NSTEMI with stent placement, COPD, acute anemia. On BIPAP. Anxiety overnight requiring ativan. Objective Exam Vital Signs Date Time Temp Pulse Resp B/P (MAP) Pulse Ox O2 Delivery O2 Flow Rate FiO2 05/05/21 12:07 36.9 108 26 103/59 (74) 97 NIV Bilevel 05/05/21 11:43 37.0 103 25 114/71 96 NIV Bilevel 40 05/05/21 11:23 37.3 116 25 131/75 96 NIV Bilevel 40 05/05/21 09:00 NIV Bilevel 35 05/05/21 08:05 36.6 62 20 164/63 (96) 99 Vapotherm 30.00 90.00 05/05/21 07:08 98 Vapotherm 25.00 75 05/05/21 07:08 98 Vapotherm 25.00 75 05/05/21 07:08 98 Vapotherm 25.00 75 05/05/21 07:00 71 05/05/21 03:50 36.4 66 16 138/73 (94) 98 NIV Bilevel 35.00 05/05/21 02:51 77 26 95 35.00 05/05/21 01:00 70 05/04/21 23:35 36.6 62 20 140/65 (90) 96 NIV Bilevel 35.00 05/04/21 21:20 NIV Bilevel 35 05/04/21 20:56 80 25 96 35.00 05/04/21 20:55 80 25 96 35.00 05/04/21 19:00 120 05/04/21 18:28 74 17 95 35.00 05/04/21 18:02 36.6 73 24 149/76 (100) 94 NIV Bilevel 35.00 I & O 05/05/21 07:00 Intake Total 750 ml Output Total 775 ml Balance -25 ml Capillary Refill : General Appearance: Mild Distress Respiratory: Decreased Breath Sounds Cardiovascular: Regular Rate, Rhythm, Systolic Murmur Gastrointestinal: normal bowel sounds, non tender, soft Extremity: Non Tender, No Calf Tenderness Neurologic/Psychiatric: Alert Results Lab Laboratory Tests 05/04/21 16:37: Glucometer 184H 05/04/21 17:24: Vancomycin Level Trough 8.9L 05/04/21 20:47: Glucometer 154H 05/05/21 06:02: Glucometer 54*L 05/05/21 06:16: White Blood Count 9.3, Red Blood Count 2.54L, Hemoglobin 7.6L, Hematocrit 24L, Mean Corpuscular Volume 94, Mean Corpuscular Hemoglobin 30, Mean Corpuscular Hemoglobin Concent 32, Red Cell Distribution Width 14.7H, Platelet Count 129L, Mean Platelet Volume 9.9, Percent Immature Platelet Fraction 4.0, Sodium Level 142, Potassium Level 3.5L, Chloride Level 104, Carbon Dioxide Level 31, Anion Gap 7, Blood Urea Nitrogen 17, Creatinine 0.70, Estimat Glomerular Filtration Rate 109, BUN/Creatinine Ratio 24, Glucose Level 42*L, Calcium Level 7.4L, Corrected Calcium 8.4L, Total Bilirubin 0.3, Aspartate Amino Transf (AST/SGOT) 9, Alanine Aminotransferase (ALT/SGPT) < 6, Alkaline Phosphatase 44, Total Protein 5.0L, Albumin 2.8L 05/05/21 06:41: Glucometer 54*L 05/05/21 07:13: Glucometer 87 05/05/21 11:04: Glucometer 159H Assessment/Plan Assessment/Plan Assess & Plan/Chief Complaint 1. Acute on Chronic Respiratory Failure--have been unable to wean BIPAP this admission 2. Acute Anemia--Hgb less than 8 with recent cardiac stent so will transfuse 1u pRBCs 3. Bilateral Pneumonia--add zosyn to Vanc 4. COPD--on IV solumedrol 5. Diabetes mellitus with hypoglycemia--decrease levemir dose 6. Pulmonary Vascular Congestion--lasix and potassium today Did discuss NH on DC and possible hospice YVETTE JACKMAN DO May 05, 2021 13:01
--- NOTE | 2021-05-05 13:35 | Occ Therapy Progress Note ---
Therapy Progress Note Patient refused OT stating, "I'm tired." OT educated pt on purpose and benefit of OT, but he still declined therapy. Pt currently on BiPAP. OT will attempt again tomorrow. KARLA ROJAS OT May 05, 2021 13:35
[2021-05-05] MEDS: NS IV 1000 ML 1,000 ML IV SCH (15:00)
[2021-05-05 16:41] LABS: HEMOGLOBIN 8.7 g/dL (13.3-17.7)
[2021-05-05] MEDS: VANCOMYCIN 2000 MG/NS 500 ML IVPB IV SCH ×2 (18:10)
[2021-05-05] MEDS: MIRTAZAPINE 15 MG (REMERON) TAB PO SCH (20:35)
[2021-05-05] MEDS: GABAPENTIN 600 MG (NEURONTIN) TAB PO SCH (20:37)
[2021-05-06] MEDS: methylPREDNISolone 40 MG/ML (Solu-MEDROL) VIAL IV SCH ×4 (00:04→17:19)
[2021-05-06] MEDS: PIPERACILLIN/TAZOBACTAM (BULK) 4.5 GM in NS (IVPB) 100 ML IV SCH ×3 (00:04→17:19)
[2021-05-06] MEDS: NS IV 1000 ML 1,000 ML IV SCH (00:05)
[2021-05-06] MEDS: RT-ALBUTEROL/IPRATROPIUM 3 ML (DUONEB) VIAL INH SCH ×6 (03:00→23:11)
[2021-05-06 03:26] VITALS: BP 169/70
[2021-05-06] MEDS: VENlafaxine XR 75 MG (EFFEXOR XR) CAP PO SCH (06:48)
[2021-05-06] MEDS: inSUlin ASPART (NovoLOG) 1 UNIT/0.01 ML (CHARGE PER UNIT) SC SCH ×4 (06:53→21:10)
[2021-05-06 07:07] LABS: HEMOGLOBIN 7.9 g/dL (13.3-17.7)
[2021-05-06 07:09] LABS: MEAN PLATELET VOLUME 10.2 fL (9.0-12.2); WHITE BLOOD COUNT 6.8 10^3/uL (4.3-11.0)
[2021-05-06 07:28] LABS: CALCIUM 7.4 MG/DL (8.5-10.1); CREATININE SERUM 0.81 MG/DL (0.60-1.30); MAGNESIUM 2.1 MG/DL (1.6-2.4); POTASSIUM 3.6 MMOL/L (3.6-5.0)
[2021-05-06 08:00] VITALS: BP 171/95
[2021-05-06] MEDS: guaiFENesin (MUCINEX) 600 MG TAB PO SCH ×2 (09:03→21:09)
[2021-05-06] MEDS: ISOSORBIDE MONONITRATE 30 MG (IMDUR) TAB PO SCH (09:03)
[2021-05-06] MEDS: SINEMET CR 50/200 (CARBIDOPA/LEVODOPA SA) TAB PO SCH ×3 (09:03→21:09)
[2021-05-06] MEDS: fluCOnazole (DIFLUCAN) 100 MG TAB PO SCH (09:03)
[2021-05-06] MEDS: MONTELUKAST 10 MG (SINGULAIR) TAB PO SCH (09:03)
[2021-05-06] MEDS: CLOPIDOGREL 75 MG (PLAVIX) TABLET PO SCH (09:03)
[2021-05-06] MEDS: APIXABAN 5 MG (ELIQUIS) TABLET PO SCH ×2 (09:03→21:09)
[2021-05-06] MEDS: PANTOPRAZOLE 40 MG (PROTONIX) TAB PO SCH ×2 (09:03→21:09)
[2021-05-06] MEDS: SILVER SULFADIAZINE 400 GM CREAM TP SCH ×2 (09:05→21:15)
[2021-05-06] MEDS ORDERED: LOSARTAN 25 MG (COZAAR) TAB PO ONE (10:00)
[2021-05-06] MEDS ORDERED: KCL 20 MEQ TAB (K-DUR) PO ONE (10:00)
[2021-05-06] MEDS ORDERED: MILK OF MAGNESIA 400 MG/5 ML 30 ML UDC PO ONE (10:00)
[2021-05-06] MEDS ORDERED: FUROSEMIDE 40 MG/4 ML INJ (LASIX) IVP ONE (10:00)
[2021-05-06] MEDS ORDERED: SENNA W/DOCUSATE (SENOKOT S) TABLET PO ONE (10:00)
--- NOTE | 2021-05-06 10:12 | Progress Note ---
Subjective Date Seen by a Provider: May 06, 2021 Time Seen by a Provider: 10:05 Subjective/Events-last exam Fwup acute on chronic respiratory failure, pneumonia, recent NSTEMI with stent placement, COPD, acute anemia, pulmonary edema. Sitting up in bed on Vapotherm. Still very short of air and weak. Objective Exam Vital Signs Date Time Temp Pulse Resp B/P (MAP) Pulse Ox O2 Delivery O2 Flow Rate FiO2 05/06/21 07:00 80 05/06/21 06:41 18 30.00 05/06/21 03:26 36.2 75 20 169/70 (103) 95 NIV Bilevel 38.00 05/06/21 03:02 30.00 05/06/21 03:00 66 20 98 38.00 05/06/21 01:00 70 05/05/21 23:30 36.0 77 22 157/69 (98) 99 NIV Bilevel 38.00 05/05/21 23:02 64 18 97 38.00 05/05/21 20:40 NIV Bilevel 35 05/05/21 20:18 36.3 85 23 142/78 (99) 98 NIV Bilevel 38.00 05/05/21 19:41 97 NIV Bilevel 38 05/05/21 19:37 81 23 97 38.00 05/05/21 19:00 90 05/05/21 16:13 36.2 80 22 107/58 (74) 96 NIV Bilevel 38.00 05/05/21 14:38 80 27 98 38.00 05/05/21 13:57 36.8 108 22 152/75 98 NIV Bilevel 40 05/05/21 12:07 36.9 108 26 103/59 (74) 97 NIV Bilevel 05/05/21 11:43 37.0 103 25 114/71 96 NIV Bilevel 40 05/05/21 11:23 37.3 116 25 131/75 96 NIV Bilevel 40 I & O 05/06/21 07:00 Intake Total 2580 ml Output Total 1610 ml Balance 970 ml Capillary Refill : General Appearance: Mild Distress Respiratory: Decreased Breath Sounds, Rales, Rhonci Cardiovascular: Systolic Murmur, Tachycardia Gastrointestinal: normal bowel sounds, non tender, soft Extremity: Non Tender, No Calf Tenderness, No Pedal Edema Neurologic/Psychiatric: Alert Skin: Ecchymosis (bilateral arms) Results Lab Laboratory Tests 05/05/21 11:04: Glucometer 159H 05/05/21 16:20: Glucometer 159H 05/05/21 16:33: Hemoglobin 8.7L, Hematocrit 28L 05/05/21 20:38: Glucometer 167H 05/06/21 05:21: Glucometer 210H 05/06/21 06:47: White Blood Count 6.8, Red Blood Count 2.67L, Hemoglobin 7.9L, Hematocrit 25L, Mean Corpuscular Volume 93, Mean Corpuscular Hemoglobin 30, Mean Corpuscular Hemoglobin Concent 32, Red Cell Distribution Width 15.8H, Platelet Count 112L, Mean Platelet Volume 10.2, Percent Immature Platelet Fraction 4.1, Sodium Level 140, Potassium Level 3.6, Chloride Level 104, Carbon Dioxide Level 30, Anion Gap 6, Blood Urea Nitrogen 19H, Creatinine 0.81, Estimat Glomerular Filtration Rate 92, BUN/Creatinine Ratio 23, Glucose Level 189H, Calcium Level 7.4L, Magnesium Level 2.1 05/06/21 06:51: Glucometer 172H Assessment/Plan Assessment/Plan Assess & Plan/Chief Complaint 1. Acute on Chronic Respiratory Failure--on Vapotherm today but still very short of air and using BIPAP q HS and prn 2. Acute Anemia--S/P transfusion of 1u pRBCs, Hgb 7.9 today so will recheck H/H in AM 3. Bilateral Pneumonia--continue Vanc and Zosyn, repeat CXR in AM 4. COPD--on IV solumedrol, SVNs with duoneb and advair and incruse inhalers 5. Diabetes mellitus--was hypoglycemic but with decreased dose of levemir is now hyperglycemic so will increase levemir to 15u q PM 6. Pulmonary Vascular Congestion--repeat lasix and potassium today, CXR in AM Condition very guarded and will need SNF on DC and possible hospice YVETTE JACKMAN DO May 06, 2021 10:12
--- NOTE | 2021-05-06 10:19 | Physical Therapy Progress Note ---
Therapy Progress Note Patient adamantly declined PT stating, "I'm not doing good. I can't do anything." RN notified. Will attempt in a.m. tomorrow. 1 ref ([phone]) EDUARD OVIEDO PT May 06, 2021 10:19
[2021-05-06] MEDS: RT--FLUTICASONE/SALMETEROL 232-14 (AIRDUO RespiCLICK) IH SCH ×2 (10:42→19:38)
[2021-05-06] MEDS: UMECLIDINIUM BROMIDE (INCRUSE ELLIPTA) 7'S IH SCH (10:43)
--- NOTE | 2021-05-06 11:18 | Occupational Therapy Eval ---
OT Evaluation-General/PLF Medical Diagnosis Admission Date May 04, 2021 at 12:46 Medical Diagnosis: pneumonia, sleep apnea, COPD, coronary stent, CAD, HTN, Parkinsons, Arthrit Onset Date: Apr 29, 2021 Therapy Diagnosis Therapy Diagnosis: decreased ADL Status, weakness Height/Weight Height (Feet): 6 Height (Inches): 0.00 Weight (Pounds): 204 Weight (Ounces): 9.0 Precautions Precautions/Isolations: Contact/Enteric Isolation Referral Physician: Maria Luz Referral Reason: Evaluation/Treatment Medical History Pertinent Medical History: CAD, COPD, DM, Heart Failure, HTN, OR Additional Medical History pneumonia, sleep apnea, COPD, coronary stent, CAD, HTN, Parkinsons, Arthritis, DM, eczema, anxiety, skin cancer with radiation Current History ED due to SOB and weakness. Transferred to [facility] Social History Home: Single Level Current Living Status: Alone ADL-Prior Level of Function SCALE: Activities may be completed with or without assistive devices. 5-Jlungzycpk-qsubiwt completes the activity by him/herself with no assistance from a helper. 5-Set-up or Clean-up Assistance-helper sets up or cleans up; patient completes activity. [place] assists only prior to or following the activity. 4-Supervision or Touching Assistance-helper provides verbal cues and/or touching/steadying and/or contact guard assistance as patient completes activity. Assistance may be provided throughout the activity or intermittently. 3-Partial/Moderate Assistance-helper does LESS THAN HALF the effort. [place] lifts, holds or supports trunk or limbs, but provides less than half the effort. 2-Substantial/Maximal Assistance-helper does MORE THAN HALF the effort. [place] lifts or holds trunk or limbs and provides more than half the effort. 5-Jglcypoyc-dobmnd does ALL the effort. Patient does none of the effort to complete the activity. Or, the assistance of 2 or more helpers is required for the patient to complete the activity. If activity was not attempted, code reason: 7-Patient Refused. 9-Not Applicable-not attempted and the patient did not perform the activity before the current illness, exacerbation or injury. 10-Not Attempted due to Environmental Limitations-(lack of equipment, weather restraints, etc.). 88-Not Attempted due to Medical Conditions or Safety Concerns. ADL PLOF Comments Pt reports IND at PLOF with ADLs and functional mobility without AD Self Care: Independent Functional Cognition: Independent DME/Equipment: Shower OT Current Status Subjective Pt laying in bed, on BiPAP. Nurse staff present to clean pt up and change linens, pt agreeable to OT assistance. Mental Status/Objective Patient Orientation: Person, Situation Attachments: Oxygen (BiPAP) Current Hand Dominance: Right Upper Extremity ROM WFL Upper Extremity Coordination WFL Upper Extremity Sensation WFL Upper Extremity Strength grossly 4/5 ADL-Treatment Eating (QC): 7 (Pt refused food/drink at time of eval) Oral Hygiene (QC): 88 (Not attempted due to pt currently on BiPAP) Shower/Bathe Self (QC): 2 (Assist to wash chest, periarea and buttocks, CGA rolling side to side in bed. Based on clincial judgement max A would be required with task.) Upper Body Dressing (QC): 3 (Mod A with changing hospital gown) Lower Body Dressing (QC): 88 On/Off Footwear (QC): 1 (Assist donning gripper socks.) Toileting Hygiene (QC): 1 (Assist to perform hygiene at bed level) Other Treatments OT introduced self to pt, nursing staff in room due to pt needing cleaned. Pt in bed, rolled side to side with CGA in order for hygiene to be performed (pt incontinent of urine) and in order for linens to be changed. Pt refused OOB activities. Pt's hospital gown soiled, mod A to change into a clean gown. Assist provided in order to wash crumbs off of pt's chest, and wash periarea. Pt declined further activity at this time as he is too tired, OT educated pt on benefits of exercises and OT, but he declined at this time. Post tx, pt laying in bed, call light in reach and all needs met Education OT Patient Education: Correct positioning, Modified ADL techniques, Progress toward Goal/Update tx plan, Purpose of tx/functional activities, Rehab process Teaching Recipient: Patient Teaching Methods: Discussion OT Tattooer Goals Halfway Goals Time Frame: May 20, 2021 Eating (QC): 5 Oral Hygiene (QC): 5 Toileting Hygiene (QC): 4 Shower/Bathe Self (QC): 4 Upper Body Dressing (QC): 5 Lower Body Dressing (QC): 4 On/Off Footwear (QC): 4 Additional Goals: 1-Demonstrate ADL Tasks, 2-Verbalize Understanding, 3-ImproveStrength/[place] 1=Demonstrate adherence to instructed precautions during ADL tasks. 2=Patient will verbalize/demonstrate understanding of assistive devices/modifications for ADL. 3=Patient will improve strength/tolerance for activity to enable patient to perform ADL's. OT Education/Plan Problem List/Assessment Assessment: Decreased Activ Tolerance, Decreased UE Strength, Impaired Funct Balance, Impaired I ADL's, Impaired Self-Care Skills Discharge Recommendations Plan/Recommendations: Continue POC Treatment Plan/Plan of Care Patient would benefit from OT for education, treatment and training to promote independence in ADL's, mobility, safety and/or upper extremity function for ADL's. Plan of Care: ADL Retraining, Functional Mobility, UE Funct Exercise/Act Treatment Duration: May 20, 2021 Frequency: 5 times per week Estimated Hrs Per Day: .25 hour per day Rehab Potential: Guarded Time/GCodes Start Time: 10:32 Stop Time: 10:55 Total Time Billed (hr/min): 23 Billed Treatment Time 1, EVM (8'), ADL (15') KARLA ROJAS OT May 06, 2021 11:18
[2021-05-06 12:00] VITALS: BP 153/81
[2021-05-06 16:24] VITALS: BP 139/72
[2021-05-06] MEDS ORDERED: TROUGH ORDER-PHARMACY XX NR (17:30)
[2021-05-06] MEDS: VANCOMYCIN 2000 MG/NS 500 ML IVPB IV SCH ×2 (18:48)
[2021-05-06 20:31] VITALS: BP 141/55
[2021-05-06] MEDS: MIRTAZAPINE 15 MG (REMERON) TAB PO SCH (21:09)
[2021-05-06] MEDS: SENNA W/DOCUSATE (SENOKOT S) TABLET PO SCH (21:09)
[2021-05-06] MEDS: MELATONIN 3 MG TABLET PO PRN (21:09)
[2021-05-06] MEDS: GABAPENTIN 600 MG (NEURONTIN) TAB PO SCH (21:09)
[2021-05-06 23:30] VITALS: BP 143/49
[2021-05-07] MEDS: PIPERACILLIN/TAZOBACTAM (BULK) 4.5 GM in NS (IVPB) 100 ML IV SCH ×3 (00:34→18:18)
[2021-05-07] MEDS: methylPREDNISolone 40 MG/ML (Solu-MEDROL) VIAL IV SCH ×4 (00:34→18:17)
[2021-05-07] MEDS: RT-ALBUTEROL/IPRATROPIUM 3 ML (DUONEB) VIAL INH SCH ×5 (02:31→19:19)
[2021-05-07 03:30] VITALS: BP 177/50
[2021-05-07] MEDS: inSUlin ASPART (NovoLOG) 1 UNIT/0.01 ML (CHARGE PER UNIT) SC SCH ×4 (05:50→21:13)
[2021-05-07] MEDS: VENlafaxine XR 75 MG (EFFEXOR XR) CAP PO SCH (06:14)
[2021-05-07] MEDS: NS IV 1000 ML 1,000 ML IV SCH (06:15)
[2021-05-07 06:47] LABS: HEMOGLOBIN 7.8 g/dL (13.3-17.7); MEAN PLATELET VOLUME 10.7 fL (9.0-12.2); WHITE BLOOD COUNT 5.3 10^3/uL (4.3-11.0)
[2021-05-07 07:13] LABS: CALCIUM 7.6 MG/DL (8.5-10.1); CREATININE SERUM 0.78 MG/DL (0.60-1.30); POTASSIUM 3.2 MMOL/L (3.6-5.0)
[2021-05-07] MEDS: UMECLIDINIUM BROMIDE (INCRUSE ELLIPTA) 7'S IH SCH (07:29)
[2021-05-07] MEDS: RT--FLUTICASONE/SALMETEROL 232-14 (AIRDUO RespiCLICK) IH SCH (07:29)
[2021-05-07 08:32] VITALS: BP 165/72
--- NOTE | 2021-05-07 08:44 | Diagnostic Imaging Report ---
EXAMINATION: Chest 1 view HISTORY: Pneumonia follow-up COMPARISON: 05/05/2021 FINDINGS: Heart size and pulmonary vasculature are stable. Stable patchy interstitial and airspace opacities throughout both lungs. Likely superimposed on chronic background lung disease. Medical support lines and tubes are unchanged. Calcifications of the aorta. Degenerative changes of the thoracic spine. Osseous structures are otherwise intact. IMPRESSION: 1. Stable patchy interstitial and airspace opacities throughout both lungs compatible with history of pneumonia. Dictated by: Dictated on workstation # [id number]
[2021-05-07] MEDS: CLOPIDOGREL 75 MG (PLAVIX) TABLET PO SCH (10:10)
[2021-05-07] MEDS: PANTOPRAZOLE 40 MG (PROTONIX) TAB PO SCH ×2 (10:11→21:13)
[2021-05-07] MEDS: SINEMET CR 50/200 (CARBIDOPA/LEVODOPA SA) TAB PO SCH ×3 (10:11→21:13)
[2021-05-07] MEDS: guaiFENesin (MUCINEX) 600 MG TAB PO SCH ×2 (10:11→21:13)
[2021-05-07] MEDS: SENNA W/DOCUSATE (SENOKOT S) TABLET PO SCH ×2 (10:11→21:13)
[2021-05-07] MEDS: ISOSORBIDE MONONITRATE 30 MG (IMDUR) TAB PO SCH (10:11)
[2021-05-07] MEDS: fluCOnazole (DIFLUCAN) 100 MG TAB PO SCH (10:12)
[2021-05-07] MEDS: APIXABAN 5 MG (ELIQUIS) TABLET PO SCH ×2 (10:12→21:13)
[2021-05-07] MEDS: MONTELUKAST 10 MG (SINGULAIR) TAB PO SCH (10:12)
[2021-05-07] MEDS: LOSARTAN 25 MG (COZAAR) TAB PO SCH (10:12)
--- NOTE | 2021-05-07 11:32 | Physical Therapy Progress Note ---
Therapy Progress Note Per nursing, Pt SOB at rest, unable to tolerate PT. LEONOR DUTTON DPT May 07, 2021 11:32
[2021-05-07 12:19] VITALS: BP 174/61
[2021-05-07] MEDS: SILVER SULFADIAZINE 400 GM CREAM TP SCH ×2 (12:52→21:14)
[2021-05-07 15:52] VITALS: BP 169/62
[2021-05-07] MEDS: VANCOMYCIN 2000 MG/NS 500 ML IVPB IV SCH ×2 (18:19)
[2021-05-07 20:34] VITALS: BP 162/72
[2021-05-07] MEDS: GABAPENTIN 600 MG (NEURONTIN) TAB PO SCH (21:12)
[2021-05-07] MEDS: MIRTAZAPINE 15 MG (REMERON) TAB PO SCH (21:13)
[2021-05-07] MEDS: MELATONIN 3 MG TABLET PO PRN (21:13)
[2021-05-07] MEDS: LORazepam INJ 2 MG/ML (ATIVAN) VIAL IVP PRN (21:23)
[2021-05-07 23:58] VITALS: BP 169/72
[2021-05-08] MEDS: methylPREDNISolone 40 MG/ML (Solu-MEDROL) VIAL IV SCH ×4 (00:47→18:27)
[2021-05-08] MEDS: PIPERACILLIN/TAZOBACTAM (BULK) 4.5 GM in NS (IVPB) 100 ML IV SCH ×3 (00:47→16:50)
[2021-05-08] MEDS: RT-ALBUTEROL/IPRATROPIUM 3 ML (DUONEB) VIAL INH SCH ×6 (01:13→22:16)
[2021-05-08] MEDS: RT--FLUTICASONE/SALMETEROL 232-14 (AIRDUO RespiCLICK) IH SCH ×3 (01:13→18:57)
[2021-05-08 03:52] VITALS: BP 170/74
[2021-05-08] MEDS: NS IV 1000 ML 1,000 ML IV SCH ×2 (04:01→16:49)
[2021-05-08] MEDS: inSUlin ASPART (NovoLOG) 1 UNIT/0.01 ML (CHARGE PER UNIT) SC SCH ×4 (05:57→20:27)
[2021-05-08] MEDS: VENlafaxine XR 75 MG (EFFEXOR XR) CAP PO SCH (06:05)
[2021-05-08] MEDS: LOSARTAN 25 MG (COZAAR) TAB PO SCH (08:22)
[2021-05-08] MEDS: APIXABAN 5 MG (ELIQUIS) TABLET PO SCH ×2 (08:22→20:37)
[2021-05-08] MEDS: guaiFENesin (MUCINEX) 600 MG TAB PO SCH ×2 (08:22→20:37)
[2021-05-08] MEDS: SENNA W/DOCUSATE (SENOKOT S) TABLET PO SCH ×2 (08:22→20:37)
[2021-05-08] MEDS: CLOPIDOGREL 75 MG (PLAVIX) TABLET PO SCH (08:22)
[2021-05-08] MEDS: PANTOPRAZOLE 40 MG (PROTONIX) TAB PO SCH ×2 (08:22→20:37)
[2021-05-08] MEDS: ISOSORBIDE MONONITRATE 30 MG (IMDUR) TAB PO SCH (08:22)
[2021-05-08] MEDS: fluCOnazole (DIFLUCAN) 100 MG TAB PO SCH (08:22)
[2021-05-08] MEDS: MONTELUKAST 10 MG (SINGULAIR) TAB PO SCH (08:22)
[2021-05-08] MEDS: SINEMET CR 50/200 (CARBIDOPA/LEVODOPA SA) TAB PO SCH ×3 (08:28→20:37)
[2021-05-08] MEDS: SILVER SULFADIAZINE 400 GM CREAM TP SCH ×2 (08:32→20:37)
[2021-05-08 08:34] VITALS: BP 164/113
[2021-05-08] MEDS: UMECLIDINIUM BROMIDE (INCRUSE ELLIPTA) 7'S IH SCH (08:56)
[2021-05-08 09:13] VITALS: BP 170/92
[2021-05-08 11:28] VITALS: BP 152/55
[2021-05-08 16:00] VITALS: BP 149/69
[2021-05-08] MEDS: VANCOMYCIN 2000 MG/NS 500 ML IVPB IV SCH ×2 (18:31)
[2021-05-08] MEDS: MELATONIN 3 MG TABLET PO PRN (18:38)
[2021-05-08 20:00] VITALS: BP 170/72
[2021-05-08] MEDS: MIRTAZAPINE 15 MG (REMERON) TAB PO SCH (20:37)
[2021-05-08] MEDS: GABAPENTIN 600 MG (NEURONTIN) TAB PO SCH (20:37)
[2021-05-09] VITALS: BP 161/74
[2021-05-09] MEDS: methylPREDNISolone 40 MG/ML (Solu-MEDROL) VIAL IV SCH ×4 (00:36→17:59)
[2021-05-09] MEDS: PIPERACILLIN/TAZOBACTAM (BULK) 4.5 GM in NS (IVPB) 100 ML IV SCH ×3 (00:36→15:52)
[2021-05-09 03:41] VITALS: BP 176/79
[2021-05-09] MEDS: inSUlin ASPART (NovoLOG) 1 UNIT/0.01 ML (CHARGE PER UNIT) SC SCH ×4 (05:35→20:42)
[2021-05-09] MEDS: VENlafaxine XR 75 MG (EFFEXOR XR) CAP PO SCH (05:40)
[2021-05-09 05:44] LABS: HEMOGLOBIN 8.5 g/dL (13.3-17.7); MEAN PLATELET VOLUME 10.2 fL (9.0-12.2); WHITE BLOOD COUNT 4.8 10^3/uL (4.3-11.0)
[2021-05-09 06:08] LABS: ALBUMIN 2.8 GM/DL (3.2-4.5); POTASSIUM 3.9 MMOL/L (3.6-5.0)
[2021-05-09 06:10] LABS: CALCIUM 7.5 MG/DL (8.5-10.1)
[2021-05-09 06:11] LABS: TOTAL PROTEIN 5.1 GM/DL (6.4-8.2)
[2021-05-09 06:13] LABS: BILIRUBIN,TOTAL 0.6 MG/DL (0.1-1.0)
[2021-05-09 06:14] LABS: CREATININE SERUM 0.71 MG/DL (0.60-1.30)
[2021-05-09] MEDS: RT-ALBUTEROL/IPRATROPIUM 3 ML (DUONEB) VIAL INH SCH ×5 (07:09→21:10)
--- NOTE | 2021-05-09 07:26 | Physical Therapy Progress Note ---
Therapy Progress Note PT to dismiss patient from services at this time secondary to patient inability to tolerate skilled therapy and increase in O2 demand. EDUARD OVIEDO PT May 09, 2021 07:26
[2021-05-09 08:19] VITALS: BP 145/63
[2021-05-09] MEDS ORDERED: FUROSEMIDE 40 MG/4 ML INJ (LASIX) IVP ONE (08:30)
[2021-05-09] MEDS ORDERED: KCL 20 MEQ TAB (K-DUR) PO ONE (08:30)
[2021-05-09] MEDS ORDERED: FUROSEMIDE 40 MG (LASIX) TAB PO SCH (09:00)
[2021-05-09] MEDS: MONTELUKAST 10 MG (SINGULAIR) TAB PO SCH (10:30)
[2021-05-09] MEDS: guaiFENesin (MUCINEX) 600 MG TAB PO SCH ×2 (10:30→20:42)
[2021-05-09] MEDS: ISOSORBIDE MONONITRATE 30 MG (IMDUR) TAB PO SCH (10:30)
[2021-05-09] MEDS: PANTOPRAZOLE 40 MG (PROTONIX) TAB PO SCH ×2 (10:31→20:42)
[2021-05-09] MEDS: CLOPIDOGREL 75 MG (PLAVIX) TABLET PO SCH (10:31)
[2021-05-09] MEDS: APIXABAN 5 MG (ELIQUIS) TABLET PO SCH ×2 (10:31→20:43)
[2021-05-09] MEDS: LOSARTAN 50 MG (COZAAR) TAB PO SCH (10:31)
[2021-05-09] MEDS: SENNA W/DOCUSATE (SENOKOT S) TABLET PO SCH ×2 (10:31→20:42)
[2021-05-09] MEDS: fluCOnazole (DIFLUCAN) 100 MG TAB PO SCH (10:31)
[2021-05-09] MEDS: SILVER SULFADIAZINE 400 GM CREAM TP SCH ×2 (10:37→20:44)
[2021-05-09] MEDS: SINEMET CR 50/200 (CARBIDOPA/LEVODOPA SA) TAB PO SCH ×3 (10:43→20:43)
[2021-05-09] MEDS: UMECLIDINIUM BROMIDE (INCRUSE ELLIPTA) 7'S IH SCH (10:58)
[2021-05-09] MEDS: RT--FLUTICASONE/SALMETEROL 232-14 (AIRDUO RespiCLICK) IH SCH ×2 (10:58→18:36)
--- NOTE | 2021-05-09 11:24 | Occ Therapy Progress Note ---
Therapy Progress Note Pt laying in bed, states he is too tired for therapy today. He is currently on Vapotherm. With encouragement, pt agreeable to washing his face, set up assistance. He indicates he ate breakfast independently (QC 6). He declined sponge bath, oral care, changing gown, and arm exercises at this time. OT educated him on purpose and benefit of OT, but he still refused. OT will attempt tx again tomorrow per pt's request. 1 , refusal [id number] KARLA ROJAS OT May 09, 2021 11:24
[2021-05-09 11:52] VITALS: BP 177/76
[2021-05-09 16:00] VITALS: BP 142/68
[2021-05-09] MEDS: LORazepam INJ 2 MG/ML (ATIVAN) VIAL IVP PRN (16:46)
--- NOTE | 2021-05-09 18:46 | Progress Note ---
Subjective Date Seen by a Provider: May 09, 2021 Time Seen by a Provider: 08:20 Subjective/Events-last exam Fwup acute on chronic respiratory failure, pneumonia, recent NSTEMI with stent placement, COPD, acute anemia, pulmonary edema. Sitting up in bed on Vapotherm eating breakfast. C/O very weak--agrees to work with therapies today. Objective Exam Vital Signs Date Time Temp Pulse Resp B/P (MAP) Pulse Ox O2 Delivery O2 Flow Rate FiO2 05/09/21 18:25 95 High Flow N/C 5.00 05/09/21 16:00 36.7 84 20 142/68 (92) 96 High Flow N/C 5.00 05/09/21 14:41 94 High Flow N/C 5.00 05/09/21 11:52 36.3 63 20 177/76 (109) 97 Vapotherm 25.00 50.00 05/09/21 10:58 90 Vapotherm 25.00 50 05/09/21 09:00 94 High Flow N/C 5.00 05/09/21 08:19 36.1 98 20 145/63 (90) 92 Vapotherm 25.00 50.00 05/09/21 07:10 68 21 98 30.00 05/09/21 03:41 35.4 71 20 176/79 (111) 99 NIV Bilevel 30.00 05/09/21 01:00 60 05/09/21 00:00 36.0 61 20 161/74 (103) 97 NIV Bilevel 30.00 05/08/21 22:16 64 18 97 30.00 05/08/21 20:57 NIV Bilevel 05/08/21 20:00 36.3 58 20 170/72 (104) 98 NIV Bilevel 30.00 05/08/21 19:07 98 NIV Bilevel 30 05/08/21 19:00 62 05/08/21 18:58 59 16 98 30.00 I & O 05/09/21 07:00 Intake Total 875 ml Output Total 625 ml Balance 250 ml Capillary Refill : General Appearance: Mild Distress Respiratory: Lungs Clear, Decreased Breath Sounds Cardiovascular: Regular Rate, Rhythm, Systolic Murmur Gastrointestinal: normal bowel sounds, non tender, soft Extremity: Non Tender, No Calf Tenderness, No Pedal Edema Neurologic/Psychiatric: Alert, Oriented x3 Results Lab Laboratory Tests 05/08/21 20:12: Glucometer 126H 05/09/21 05:31: Glucometer 173H 05/09/21 05:32: White Blood Count 4.8, Red Blood Count 2.90L, Hemoglobin 8.5L, Hematocrit 27L, Mean Corpuscular Volume 93, Mean Corpuscular Hemoglobin 29, Mean Corpuscular Hemoglobin Concent 32, Red Cell Distribution Width 15.6H, Platelet Count 116L, Mean Platelet Volume 10.2, Percent Immature Platelet Fraction 5.6, Sodium Level 138, Potassium Level 3.9, Chloride Level 100, Carbon Dioxide Level 30, Anion Gap 8, Blood Urea Nitrogen 19H, Creatinine 0.71, Estimat Glomerular Filtration Rate 107, BUN/Creatinine Ratio 27, Glucose Level 189H, Calcium Level 7.5L, Corrected Calcium 8.5, Total Bilirubin 0.6, Aspartate Amino Transf (AST/SGOT) 13, Alanine Aminotransferase (ALT/SGPT) 11, Alkaline Phosphatase 79, B-Type Natriuretic Peptide 1255.3H, Total Protein 5.1L, Albumin 2.8L 05/09/21 11:52: Glucometer 270H 05/09/21 16:04: Glucometer 211H Assessment/Plan Assessment/Plan Assess & Plan/Chief Complaint 1. Acute on Chronic Respiratory Failure--on Vapotherm today but still very short of air and using BIPAP q HS and prn, will look at DC to SNF 2. Acute Anemia--S/P transfusion of 1u pRBCs, Hgb up to 8.5 3. Bilateral Pneumonia--continue Vanc and Zosyn 4. COPD--on IV solumedrol, SVNs with duoneb and advair and incruse inhalers 5. Diabetes mellitus--on levemir and SSI 6. Pulmonary Vascular Congestion--repeat IV lasix now and oral potassium now and start oral lasix/potassium tomorrow Condition very guarded and will need SNF DC planning--still may need hospice YVETTE JACKMAN DO May 09, 2021 18:46
[2021-05-09 20:01] VITALS: BP 176/77
[2021-05-09] MEDS: GABAPENTIN 600 MG (NEURONTIN) TAB PO SCH (20:43)
[2021-05-09] MEDS: MIRTAZAPINE 15 MG (REMERON) TAB PO SCH (20:43)
[2021-05-10] VITALS (7 sets, daily range): BP systolic 134–183; BP diastolic 56–93
[2021-05-10] MEDS: methylPREDNISolone 40 MG/ML (Solu-MEDROL) VIAL IV SCH ×4 (00:19→17:32)
[2021-05-10] MEDS: PIPERACILLIN/TAZOBACTAM (BULK) 4.5 GM in NS (IVPB) 100 ML IV SCH (00:19)
[2021-05-10] MEDS: RT-ALBUTEROL/IPRATROPIUM 3 ML (DUONEB) VIAL INH SCH ×6 (01:58→22:38)
[2021-05-10] MEDS: inSUlin ASPART (NovoLOG) 1 UNIT/0.01 ML (CHARGE PER UNIT) SC SCH ×4 (06:10→20:24)
[2021-05-10] MEDS: VENlafaxine XR 75 MG (EFFEXOR XR) CAP PO SCH (06:11)
[2021-05-10] MEDS: NS IV 1000 ML 1,000 ML IV SCH ×2 (06:11→17:47)
[2021-05-10] MEDS ORDERED: KCL 20 MEQ TAB (K-DUR) PO SCH (07:00)
[2021-05-10] MEDS ORDERED: FUROSEMIDE 40 MG (LASIX) TAB PO ONE (08:30)
--- NOTE | 2021-05-10 08:35 | Progress Note ---
Subjective Date Seen by a Provider: May 10, 2021 Time Seen by a Provider: 08:31 Subjective/Events-last exam Fwup acute on chronic respiratory failure, pneumonia, recent NSTEMI with stent placement, COPD, acute anemia, pulmonary edema. Sitting up in bed. Ate breakfast. Now on NC. Discussed with patient that he needs to work with OT today and bathe. Objective Exam Vital Signs Date Time Temp Pulse Resp B/P (MAP) Pulse Ox O2 Delivery O2 Flow Rate FiO2 05/10/21 08:02 36.4 63 20 136/86 (103) 98 High Flow N/C 5.00 05/10/21 03:48 36.5 60 20 163/56 (91) 98 High Flow N/C 5.00 05/10/21 01:58 67 16 97 30.00 05/10/21 00:42 36.6 59 18 138/84 (102) 97 High Flow N/C 5.00 05/09/21 21:11 74 19 97 30.00 05/09/21 20:42 High Flow N/C 5.00 05/09/21 20:01 36.5 78 20 176/77 (110) 96 High Flow N/C 5.00 05/09/21 18:25 95 High Flow N/C 5.00 05/09/21 16:00 36.7 84 20 142/68 (92) 96 High Flow N/C 5.00 05/09/21 14:41 94 High Flow N/C 5.00 05/09/21 11:52 36.3 63 20 177/76 (109) 97 Vapotherm 25.00 50.00 05/09/21 10:58 90 Vapotherm 25.00 50 05/09/21 09:00 94 High Flow N/C 5.00 I & O 05/10/21 07:00 Intake Total 1000 ml Output Total 1100 ml Balance -100 ml Capillary Refill : General Appearance: Mild Distress Respiratory: Decreased Breath Sounds, Rales (gurgling), Rhonci Cardiovascular: Regular Rate, Rhythm, Systolic Murmur Gastrointestinal: normal bowel sounds, non tender, soft Extremity: Non Tender, No Calf Tenderness Neurologic/Psychiatric: Alert, Oriented x3 Results Lab Laboratory Tests 05/09/21 11:52: Glucometer 270H 05/09/21 16:04: Glucometer 211H 05/09/21 20:31: Glucometer 213H Assessment/Plan Assessment/Plan Assess & Plan/Chief Complaint 1. Acute on Chronic Respiratory Failure--on NC today and using BIPAP q HS and prn, looking at DC to SNF 2. Acute Anemia--S/P transfusion of 1u pRBCs, repeat CBC in AM 3. Bilateral Pneumonia--Vanc and Zosyn finished, repeat CXR 4. COPD--on IV solumedrol, SVNs with duoneb and advair and incruse inhalers 5. Diabetes mellitus--increase levemir to 20u and continue SSI 6. Pulmonary Vascular Congestion--increase lasix to 40mg po BID and oral potassium to BID and repeat BNP tomorrow Condition very guarded and will need SNF DC planning--still may need hospice YVETTE JACKMAN DO May 10, 2021 08:35
[2021-05-10] MEDS ORDERED: FUROSEMIDE 40 MG (LASIX) TAB PO SCH (09:00)
[2021-05-10] MEDS: UMECLIDINIUM BROMIDE (INCRUSE ELLIPTA) 7'S IH SCH (09:16)
[2021-05-10] MEDS: RT--FLUTICASONE/SALMETEROL 232-14 (AIRDUO RespiCLICK) IH SCH ×2 (09:16→18:28)
--- NOTE | 2021-05-10 09:24 | Diagnostic Imaging Report ---
INDICATION: Pneumonia followup, pulmonary congestion. TECHNIQUE: Single view chest 8:56 AM. CORRELATION STUDY: 05/07/2021 FINDINGS: Left IJ central line tip just superior and medial to the aortic arch, stable. Heart size and mediastinum are unchanged. Coronary artery stenting over left heart border. Vasculature stable. Scattered bilateral pulmonary parenchymal opacities are present with prominent interstitial markings particularly at the lung bases. Overall, without adverse change. No new area of consolidation. IMPRESSION: 1. Chronic appearing changes about lung parenchyma with hyperinflated lung powell. However, overall appears to be less severity interstitial and airspace opacities suggestive of improvement. Vasculature overall within normal limits at followup. Dictated by: Dictated on workstation # [id number]
[2021-05-10] MEDS: SINEMET CR 50/200 (CARBIDOPA/LEVODOPA SA) TAB PO SCH ×3 (09:38→20:23)
[2021-05-10] MEDS: LOSARTAN 50 MG (COZAAR) TAB PO SCH (09:38)
[2021-05-10] MEDS: SENNA W/DOCUSATE (SENOKOT S) TABLET PO SCH ×2 (09:39→20:23)
[2021-05-10] MEDS: APIXABAN 5 MG (ELIQUIS) TABLET PO SCH ×2 (09:39→20:23)
[2021-05-10] MEDS: MONTELUKAST 10 MG (SINGULAIR) TAB PO SCH (09:39)
[2021-05-10] MEDS: CLOPIDOGREL 75 MG (PLAVIX) TABLET PO SCH (09:39)
[2021-05-10] MEDS: ISOSORBIDE MONONITRATE 30 MG (IMDUR) TAB PO SCH (09:39)
[2021-05-10] MEDS: guaiFENesin (MUCINEX) 600 MG TAB PO SCH ×2 (09:39→20:23)
[2021-05-10] MEDS: KCL 20 MEQ TAB (K-DUR) PO SCH ×2 (09:39→20:23)
[2021-05-10] MEDS: PANTOPRAZOLE 40 MG (PROTONIX) TAB PO SCH ×2 (09:39→20:23)
[2021-05-10] MEDS: SILVER SULFADIAZINE 400 GM CREAM TP SCH ×2 (09:40→20:24)
--- NOTE | 2021-05-10 14:10 | Occupational Ther Daily Note ---
OT Current Status-Daily Note Subjective Pt laying in bed, agreeable to OT tx. Pt pleasant throughout session, slight difficult understanding what pt is saying but pt able to repeat as needed. Mental Status/Objective Patient Orientation: Person, Place, Situation Attachments: Oxygen (5L) ADL-Treatment Therapy Code Descriptions/Definitions Functional [place] Measure: 0=Not Assessed/NA 4=Minimal Assistance 1=Total Assistance 5=Supervision or Setup 2=Maximal Assistance 6=Modified [place] 3=Moderate Assistance 7=Complete IndependenceSCALE: Activities may be completed with or without assistive devices. 9-Jywjiatmfl-pofvums completes the activity by him/herself with no assistance from a helper. 5-Set-up or Clean-up Assistance-helper sets up or cleans up; patient completes activity. [place] assists only prior to or following the activity. 4-Supervision or Touching Assistance-helper provides verbal cues and/or touching/steadying and/or contact guard assistance as patient completes activity. Assistance may be provided throughout the activity or intermittently. 3-Partial/Moderate Assistance-helper does LESS THAN HALF the effort. [place] lifts, holds or supports trunk or limbs, but provides less than half the effort. 2-Substantial/Maximal Assistance-helper does MORE THAN HALF the effort. [place] lifts or holds trunk or limbs and provides more than half the effort. 8-Tlhereqeb-cstgui does ALL the effort. Patient does none of the effort to complete the activity. Or, the assistance of 2 or more helpers is required for the patient to complete the activity. If activity was not attempted, code reason: 7-Patient Refused. 9-Not Applicable-not attempted and the patient did not perform the activity before the current illness, exacerbation or injury. 10-Not Attempted due to Environmental Limitations-(lack of equipment, weather restraints, etc.). 88-Not Attempted due to Medical Conditions or Safety Concerns. Eating (QC): 5 (based on clincial judgment) Oral Hygiene (QC): 7 (pt declined) Shower/Bathe Self (QC): 3 (Per pt and nursing staff report, min A overall with sponge bath) Upper Body Dressing (QC): 3 (Min A changing hospital gown) Lower Body Dressing (QC): 10 (pt did not have clothing available) On/Off Footwear: 3 (Min A donning/doffing gripper socks.) Toileting Hygiene (QC): 2 (Assist with hygiene after BM. Pt able to use urinal with set up/clean up assist) Other Treatment Pt laying in bed, agreeable to OT tx. Pt indicates he had a sponge bath this morning, min A overall with task. Pt declines OOB activities at this time. He declines oral care, per pt and nursing report, he requires min A with changing hospital gown. Pt agreeable to UE exercises in order to increase BUE strength and activity tolerance, pt completed x10 reps each of the following BUE exercises: x10 reps shoulder flexion, elbow flexion/extension and finger flexion/extension. Pt took rest breaks between exercises as needed. O2 sa turation monitored throughout tx, remained above 95%. Post tx, pt laying in bed, call light in reach and all needs met. 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 2=Patient will verbalize/demonstrate understanding of assistive devices/modifications for ADL. 3=Patient will improve strength/tolerance for activity to enable patient to perform ADL's. OT Education/Plan Problem List/Assessment Assessment: Decreased Activ Tolerance, Decreased UE Strength, Impaired Funct Balance, Impaired I ADL's, Impaired Self-Care Skills, Restricted Funct UE ROM Discharge Recommendations Plan/Recommendations: Continue POC Treatment Plan/Plan of Care Patient would benefit from OT for education, treatment and training to promote independence in ADL's, mobility, safety and/or upper extremity function for ADL's. Plan of Care: ADL Retraining, Functional Mobility, UE Funct Exercise/Act Treatment Duration: May 20, 2021 Frequency: 5 times per week Estimated Hrs Per Day: .25 hour per day Rehab Potential: Guarded Time/GCodes Start Time: 13:43 Stop Time: 13:58 Total Time Billed (hr/min): 15 Billed Treatment Time 1, EX KARLA ROJAS OT May 10, 2021 14:10
[2021-05-10] MEDS: FUROSEMIDE 40 MG (LASIX) TAB PO SCH (17:32)
[2021-05-10] MEDS: LORazepam INJ 2 MG/ML (ATIVAN) VIAL IVP PRN ×2 (17:38→22:49)
[2021-05-10] MEDS: GABAPENTIN 600 MG (NEURONTIN) TAB PO SCH (20:23)
[2021-05-10] MEDS: MIRTAZAPINE 15 MG (REMERON) TAB PO SCH (20:23)
[2021-05-11] MEDS: methylPREDNISolone 40 MG/ML (Solu-MEDROL) VIAL IV SCH ×5 (00:13→23:57)
[2021-05-11 00:14] VITALS: BP 141/70
[2021-05-11] MEDS: RT-ALBUTEROL/IPRATROPIUM 3 ML (DUONEB) VIAL INH SCH ×6 (02:10→21:37)
[2021-05-11] MEDS: NS IV 1000 ML 1,000 ML IV SCH ×2 (02:44→21:17)
[2021-05-11 05:00] VITALS: BP 152/74
[2021-05-11 05:17] LABS: HEMATOCRIT 31 % (40-54); HEMOGLOBIN 9.9 g/dL (13.3-17.7); MEAN CORPUSCULAR HEMOGLOBIN 30 pg (25-34); MEAN CORPUSCULAR HGB CONC 32 g/dL (32-36); MEAN CORPUSCULAR VOLUME 93 fL (80-99); MEAN PLATELET VOLUME 10.7 fL (9.0-12.2); PLATELET COUNT 117 10^3/uL (130-400); WHITE BLOOD COUNT 8.9 10^3/uL (4.3-11.0)
[2021-05-11 05:33] LABS: CALCIUM 7.8 MG/DL (8.5-10.1)
[2021-05-11 05:38] LABS: CREATININE SERUM 0.78 MG/DL (0.60-1.30)
[2021-05-11] MEDS: inSUlin ASPART (NovoLOG) 1 UNIT/0.01 ML (CHARGE PER UNIT) SC SCH ×4 (06:39→21:06)
[2021-05-11] MEDS: VENlafaxine XR 75 MG (EFFEXOR XR) CAP PO SCH (06:39)
[2021-05-11] MEDS: FUROSEMIDE 40 MG (LASIX) TAB PO SCH ×2 (06:39→16:20)
[2021-05-11] MEDS: SENNA W/DOCUSATE (SENOKOT S) TABLET PO SCH ×2 (07:41→21:13)
[2021-05-11 08:00] VITALS: BP 134/76
[2021-05-11] MEDS: CLOPIDOGREL 75 MG (PLAVIX) TABLET PO SCH (08:28)
[2021-05-11] MEDS: APIXABAN 5 MG (ELIQUIS) TABLET PO SCH ×2 (08:28→21:13)
[2021-05-11] MEDS: MONTELUKAST 10 MG (SINGULAIR) TAB PO SCH (08:28)
[2021-05-11] MEDS: guaiFENesin (MUCINEX) 600 MG TAB PO SCH ×2 (08:28→21:12)
[2021-05-11] MEDS: KCL 20 MEQ TAB (K-DUR) PO SCH ×2 (08:28→21:13)
[2021-05-11] MEDS: ISOSORBIDE MONONITRATE 30 MG (IMDUR) TAB PO SCH (08:28)
[2021-05-11] MEDS: LOSARTAN 50 MG (COZAAR) TAB PO SCH (08:28)
[2021-05-11] MEDS: PANTOPRAZOLE 40 MG (PROTONIX) TAB PO SCH ×2 (08:28→21:12)
[2021-05-11] MEDS: SILVER SULFADIAZINE 400 GM CREAM TP SCH ×2 (08:29→21:13)
[2021-05-11] MEDS: SINEMET CR 50/200 (CARBIDOPA/LEVODOPA SA) TAB PO SCH ×3 (08:32→21:13)
--- NOTE | 2021-05-11 08:32 | Discharge Inst-Skilled Nursing ---
Discharge Inst-Skilled NF Consult/Follow Up/Orders Skilled NF Admit to: [facility] Emergency Department Certification (SNF) I certify that SNF services are required to be given on an inpatient basis b ecause of the above named patient's need for jail care on a continuing basis for the conditions(s) for which he/she was receiving inpatient hospital services prior to his/her transfer to the SNF. Longterm Facility Order: Nursing Services, Wellness Assistant-Evaluate & Treat, Physical Therapy-Evaluate & Treat, Speech Language-Evaluate & Treat Oxygen Delivery Method: NIV Bilevel Discharge Diet: ADA Diet, Cardiac Diet Resuscitation Status: Do Not Resuscitate New & Resume Previous Orders New & Resume Previous Orders Accuchecks BID CBC and Chem 7 in 2 weeks Oxygen during day at 5-6liters and BIPAP Lita Barakat May 11, 2021 08:29 LITA BARAKAT DO May 11, 2021 08:32
[2021-05-11] MEDS ORDERED: GUAI600T43 PO (08:42)
[2021-05-11] MEDS ORDERED: POTA20TA8 PO (08:42)
[2021-05-11] MEDS ORDERED: FURO40TA4 PO (08:42)
[2021-05-11] MEDS ORDERED: ACHYD1T PO (08:42)
[2021-05-11] MEDS ORDERED: SENN1TAB76 PO (08:42)
[2021-05-11] MEDS ORDERED: LOSA50TA63 PO (08:42)
[2021-05-11] MEDS: RT--FLUTICASONE/SALMETEROL 232-14 (AIRDUO RespiCLICK) IH SCH ×2 (10:35→18:34)
[2021-05-11] MEDS: UMECLIDINIUM BROMIDE (INCRUSE ELLIPTA) 7'S IH SCH (10:35)
--- NOTE | 2021-05-11 10:55 | Physical Therapy Evaluation ---
PT Evaluation-General Medical Diagnosis Admission Date May 04, 2021 at 12:46 Medical Diagnosis: pneumonia, sleep apnea, COPD, coronary stent, CAD, HTN, Parkinsons, Arthrit Onset Date: Apr 29, 2021 Therapy Diagnosis Therapy Diagnosis: impaired transfers and gait Height/Weight Height (Feet): 6 Height (Inches): 0.00 Weight (Pounds): 204 Weight (Ounces): 9.0 Precautions Precautions/Isolations: Contact Isolation, Fall Prevention Referral Physician: Maria Luz Reason for Referral: Evaluation/Treatment Medical History Pertinent Medical History: CAD, COPD, DM, Heart Failure, HTN, [place] Social History Home: Single Level Current Living Status: Alone Prior Prior Level of Function SCALE: Activities may be completed with or without assistive devices. 9-Ijhjjsrygf-rofhsej completes the activity by him/herself with no assistance from a helper. 5-Set-up or Clean-up Assistance-helper sets up or cleans up; patient completes activity. [place] assists only prior to or following the activity. 4-Supervision or Touching Assistance-helper provides verbal cues and/or touching/steadying and/or contact guard assistance as patient completes activity. Assistance may be provided throughout the activity or intermittently. 3-Partial/Moderate Assistance-helper does LESS THAN HALF the effort. [place] lifts, holds or supports trunk or limbs, but provides less than half the effort. 2-Substantial/Maximal Assistance-helper does MORE THAN HALF the effort. [place] lifts or holds trunk or limbs and provides more than half the effort. 6-Qlptkrpvh-vsppiu does ALL the effort. Patient does none of the effort to co mplete the activity. Or, the assistance of 2 or more helpers is required for the patient to complete the activity. If activity was not attempted, code reason: 7-Patient Refused. 9-Not Applicable-not attempted and the patient did not perform the activity before the current illness, exacerbation or injury. 10-Not Attempted due to Environmental Limitations-(lack of equipment, weather restraints, etc.). 88-Not Attempted due to Medical Conditions or Safety Concerns. Bed Mobility: 6 Transfers (B,C,W/C): 6 Gait: 6 PT Evaluation-Current Subjective Pt reports he is ready to get out of the hospital. He is agreeable to therapy. Objective Patient Orientation: Normal For Age Attachments: Oxygen, IV ROM/Strength ROM Upper Extremities WFL ROM Lower Extremities WFL Strength Upper Extremities 4/5 Strength Lower Extremities 4/5 Sensory Vision: Functional Hearing: Functional Hand Dominance: Right Transfers Roll Left & Right (QC): 6 Sit to Lying (QC): 6 Lying to Sitting/Side of Bed(Q: 6 Sit to Stand (QC): 4 Chair/Wsl-mb-Xszev Xfer(QC): 4 Toilet Transfer (QC): 4 Car Transfer (QC): 88 Pt needs Min A for stability during transfers. His (L) knee is unsteadyduring stance. Gait Does the Patient Walk?: Yes Mode of Locomotion: Walk Anticipated Mode of Locomotion: Walk Walk 10 feet (QC): 4 Walk 50 ft with 2 Turns(QC): 88 Walk 150 ft (QC): 88 Walking 10ft/uneven surface-QC: 88 Distance: 10 Gait Assistive Device: FWW Comments/Gait Description 10ft with FWW and Min A for stability. Supplemental Oxygen. Limited by SOB Wheelchair Training Wheel 50 ft with 2 turns (QC): 9 Wheel 150 ft (QC): 9 Stairs 1 Step (curb) (QC): 88 4 Steps (QC): 88 12 Steps (QC): 8 Balance Sitting Static: Normal Sitting Dynamic: Fair Standing Static: Fair Standing Dynamic: Poor Picking up an Object (QC): 88 Assessment/Needs Pt has impaired balance and is unsafe for transfers and gait. He will benefit from PT to promote improve function and safety. Rehab Potential: Good Post Rehab Potential-Barriers: breathing PT Longterm Goals Longterm Goals PT Longterm Goals Time Frame: May 20, 2021 Roll Left & Right (QC): 6 Sit to Lying (QC): 6 Lying-Sitting on Side/Bed(QC): 6 Sit to Stand (QC): 6 Chair/Jda-lo-Vrwlq Xfer(QC): 6 Toilet Transfer (QC): 6 Car Transfer (QC): 6 Does the Patient Walk: Yes Walk 10 feet (QC): 6 Walk 50ft with 2 Turns (QC): 6 Walk 150 ft (QC): 6 Walking 10ft on Uneven Surface: 6 1 Step (curb) (QC): 5 4 Steps (QC): 9 12 Steps (QC): 9 Picking up an Object (QC): 88 Wheel 50 feet with 2 turns (QC: 9 Wheel 150 feet: 9 PT Plan Problem List Problem List: Activity Tolerance, Balance, Gait, Transfer Treatment/Plan Treatment Plan: Continue Plan of Care Treatment Plan: Gait, Safety, Therapeutic Exercise, Transfers Treatment Duration: May 20, 2021 Frequency: 6 times per week Estimated Hrs Per Day: .25 hour per day Discharge Recommendations Plan Pt will benefit from continued post acute PT. Time/GCodes Time In: 1000 Time Out: 1030 Total Billed Treatment Time: 30 Total Billed Treatment visit, evaluation moderate complexity 30 minutes SHELLEY JEFFERSON PT May 11, 2021 10:54
--- NOTE | 2021-05-11 11:00 | Occupational Ther Daily Note ---
OT Current Status-Daily Note Subjective Pt laying in bed, agreeable to OT tx. Mental Status/Objective Attachments: Oxygen (5L) ADL-Treatment Therapy Code Descriptions/Definitions Functional [place] Measure: 0=Not Assessed/NA 4=Minimal Assistance 1=Total Assistance 5=Supervision or Setup 2=Maximal Assistance 6=Modified [place] 3=Moderate Assistance 7=Complete IndependenceSCALE: Activities may be completed with or without assistive devices. 2-Szbztrbxhy-iqxpadk completes the activity by him/herself with no assistance from a helper. 5-Set-up or Clean-up Assistance-helper sets up or cleans up; patient completes activity. [place] assists only prior to or following the activity. 4-Supervision or Touching Assistance-helper provides verbal cues and/or touching/steadying and/or contact guard assistance as patient completes acti vity. Assistance may be provided throughout the activity or intermittently. 3-Partial/Moderate Assistance-helper does LESS THAN HALF the effort. [place] lifts, holds or supports trunk or limbs, but provides less than half the effort. 2-Substantial/Maximal Assistance-helper does MORE THAN HALF the effort. [place] lifts or holds trunk or limbs and provides more than half the effort. 2-Jppozluvj-asyfpp does ALL the effort. Patient does none of the effort to complete the activity. Or, the assistance of 2 or more helpers is required for the patient to complete the activity. If activity was not attempted, code reason: 7-Patient Refused. 9-Not Applicable-not attempted and the patient did not perform the activity before the current illness, exacerbation or injury. 10-Not Attempted due to Environmental Limitations-(lack of equipment, weather restraints, etc.). 88-Not Attempted due to Medical Conditions or Safety Concerns. Oral Hygiene (QC): 7 (pt declined as his teeth were soaked overnight) Other Treatment Pt laying in bed, agreeable to OT Tx. He declined ADLs at this time, as he completed got cleaned up yesterday. Pt indicates he was up with PT a little bit ago. Pt agreeable to UE exercises in order to increase strength and activity tolerance. Pt completed x30 reps each of the following BUE exercises: shoulder flexion, elbow flexion/extension, wrist flexion/extension, finger flexion/extension and horizontal abduction/adduction. Pt took rest breaks as needed between exercises. O2 saturation in mid 90%s with activity. Post tx, pt laying in bed, call light in reach and all needs met. Education OT Patient Education: Correct positioning, Modified ADL techniques, Progress toward Goal/Update tx plan, Purpose of tx/functional activities, Rehab process Teaching Recipient: Patient Teaching Methods: Discussion Response to Teaching: Verbalize Understanding OT Clerical Warehouse Worker Goals Clerical Warehouse Worker Goals Time Frame: May 20, 2021 Eating (QC): 5 Oral Hygiene (QC): 5 Toileting Hygiene (QC): 4 Shower/Bathe Self (QC): 4 Upper Body Dressing (QC): 5 Lower Body Dressing (QC): 4 On/Off Footwear (QC): 4 Additional Goals: 1-Demonstrate ADL Tasks, 2-Verbalize Understanding, 3-ImproveStrength/[place] 1=Demonstrate adherence to instructed precautions during ADL tasks. 2=Patient will verbalize/demonstrate understanding of assistive devices/modifications for ADL. 3=Patient will improve strength/tolerance for activity to enable patient to perform ADL's. OT Education/Plan Problem List/Assessment Assessment: Decreased Activ Tolerance, Decreased UE Strength, Impaired Funct Balance, Impaired I ADL's, Impaired Self-Care Skills Discharge Recommendations Plan/Recommendations: Continue POC Treatment Plan/Plan of Care Patient would benefit from OT for education, treatment and training to promote independence in ADL's, mobility, safety and/or upper extremity function for ADL's. Plan of Care: ADL Retraining, Functional Mobility, UE Funct Exercise/Act Treatment Duration: May 20, 2021 Frequency: 5 times per week Estimated Hrs Per Day: .25 hour per day Rehab Potential: Good Time/GCodes Start Time: 10:45 Stop Time: 11:00 Total Time Billed (hr/min): 15 Billed Treatment Time 1, EX KARLA ROJAS OT May 11, 2021 11:00
[2021-05-11 11:58] VITALS: BP 134/49
[2021-05-11 16:01] VITALS: BP 148/69
--- NOTE | 2021-05-11 19:24 | Progress Note ---
Subjective Date Seen by a Provider: May 11, 2021 Time Seen by a Provider: 08:30 Subjective/Events-last exam Fwup acute on chronic respiratory failure, pneumonia, recent NSTEMI with stent placement, COPD, acute anemia, pulmonary edema. Sitting up in bed. Did work with OT yesterday and shower. Objective Exam Vital Signs Date Time Temp Pulse Resp B/P (MAP) Pulse Ox O2 Delivery O2 Flow Rate FiO2 05/11/21 18:34 95 High Flow N/C 3.00 05/11/21 16:01 36.1 84 20 148/69 (95) 94 Nasal Cannula 4.00 05/11/21 14:47 96 High Flow N/C 4.00 05/11/21 11:58 36.9 75 20 134/49 (77) 93 Nasal Cannula 4.00 05/11/21 10:35 97 High Flow N/C 5.00 05/11/21 09:00 93 High Flow N/C 4.00 05/11/21 08:00 36.0 66 20 134/76 (95) 99 NIV Bilevel 30.00 05/11/21 06:54 80 19 98 30.00 05/11/21 05:00 36.2 62 16 152/74 (100) 96 NIV Bilevel 30.00 05/11/21 02:10 60 22 91 30.00 05/11/21 00:14 36.1 52 22 141/70 (93) 95 NIV Bilevel 30.00 05/10/21 22:40 98 High Flow N/C 5.00 05/10/21 21:40 149/85 (106) 05/10/21 20:41 93 High Flow N/C 4.00 05/10/21 20:00 36.8 86 20 183/77 (112) 97 Nasal Cannula 4.00 I & O 05/11/21 07:00 Intake Total 1950 ml Output Total 4400 ml Balance -2450 ml Capillary Refill : General Appearance: Mild Distress Respiratory: Decreased Breath Sounds Cardiovascular: Regular Rate, Rhythm Gastrointestinal: normal bowel sounds, non tender, soft Extremity: Non Tender, No Calf Tenderness, No Pedal Edema Neurologic/Psychiatric: Alert, Oriented x3 Results Lab Laboratory Tests 05/10/21 20:11: Glucometer 232H 05/10/21 22:40: Glucometer 176H 05/11/21 05:00: White Blood Count 8.9, Red Blood Count 3.35L, Hemoglobin 9.9L, Hematocrit 31L, Mean Corpuscular Volume 93, Mean Corpuscular Hemoglobin 30, Mean Corpuscular Hemoglobin Concent 32, Red Cell Distribution Width 15.4H, Platelet Count 117L, Mean Platelet Volume 10.7, Sodium Level 138, Potassium Level 4.0, Chloride Level 97L, Carbon Dioxide Level 32, Anion Gap 9, Blood Urea Nitrogen 21H, Creatinine 0.78, Estimat Glomerular Filtration Rate 96, BUN/Creatinine Ratio 27, Glucose Level 261H, Calcium Level 7.8L, B-Type Natriuretic Peptide 754.5H 05/11/21 05:11: Glucometer 236H 05/11/21 10:31: Glucometer 194H 05/11/21 16:04: Glucometer 263H Assessment/Plan Assessment/Plan Assess & Plan/Chief Complaint 1. Acute on Chronic Respiratory Failure--on NC today and using BIPAP q HS and prn, looking at DC to SNF today or tomorrow 2. Acute Anemia--S/P transfusion of 1u pRBCs, H/H up to 3. Bilateral Pneumonia--Vanc and Zosyn finished, CXR improved 4. COPD--on IV solumedrol, SVNs with duoneb and advair and incruse inhalers 5. Diabetes mellitus--increase levemir to 20u and continue SSI 6. Pulmonary Vascular Congestion--BNP improved, change to oral lasix and potassium Condition very guarded and will need SNF DC planning--still may need hospice YVETTE JACKMAN DO May 11, 2021 19:24
[2021-05-11 19:36] VITALS: BP 158/78
[2021-05-11] MEDS: MIRTAZAPINE 15 MG (REMERON) TAB PO SCH (21:13)
[2021-05-11] MEDS: GABAPENTIN 600 MG (NEURONTIN) TAB PO SCH (21:13)
[2021-05-11] MEDS: MELATONIN 3 MG TABLET PO PRN (21:17)
[2021-05-12] VITALS: BP 156/63
[2021-05-12] MEDS: RT-ALBUTEROL/IPRATROPIUM 3 ML (DUONEB) VIAL INH SCH ×4 (01:29→14:00)
[2021-05-12 04:17] VITALS: BP 131/70
[2021-05-12] MEDS: inSUlin ASPART (NovoLOG) 1 UNIT/0.01 ML (CHARGE PER UNIT) SC SCH ×2 (05:32→11:55)
[2021-05-12] MEDS: VENlafaxine XR 75 MG (EFFEXOR XR) CAP PO SCH (06:07)
[2021-05-12] MEDS: FUROSEMIDE 40 MG (LASIX) TAB PO SCH (06:07)
[2021-05-12] MEDS: methylPREDNISolone 40 MG/ML (Solu-MEDROL) VIAL IV SCH ×2 (06:07→11:55)
[2021-05-12] MEDS: UMECLIDINIUM BROMIDE (INCRUSE ELLIPTA) 7'S IH SCH (06:55)
[2021-05-12] MEDS: RT--FLUTICASONE/SALMETEROL 232-14 (AIRDUO RespiCLICK) IH SCH (06:55)
[2021-05-12 07:36] VITALS: BP 134/66
[2021-05-12] MEDS: ISOSORBIDE MONONITRATE 30 MG (IMDUR) TAB PO SCH (09:07)
[2021-05-12] MEDS: SENNA W/DOCUSATE (SENOKOT S) TABLET PO SCH (09:07)
[2021-05-12] MEDS: guaiFENesin (MUCINEX) 600 MG TAB PO SCH (09:08)
[2021-05-12] MEDS: SINEMET CR 50/200 (CARBIDOPA/LEVODOPA SA) TAB PO SCH ×2 (09:08→11:55)
[2021-05-12] MEDS: PANTOPRAZOLE 40 MG (PROTONIX) TAB PO SCH (09:08)
[2021-05-12] MEDS: MONTELUKAST 10 MG (SINGULAIR) TAB PO SCH (09:08)
[2021-05-12] MEDS: CLOPIDOGREL 75 MG (PLAVIX) TABLET PO SCH (09:08)
[2021-05-12] MEDS: KCL 20 MEQ TAB (K-DUR) PO SCH (09:08)
[2021-05-12] MEDS: SILVER SULFADIAZINE 400 GM CREAM TP SCH (09:08)
[2021-05-12] MEDS: APIXABAN 5 MG (ELIQUIS) TABLET PO SCH (09:08)
[2021-05-12] MEDS: LOSARTAN 50 MG (COZAAR) TAB PO SCH (09:08)
--- NOTE | 2021-05-12 10:14 | Physical Therapy Daily Note ---
PT Daily Note-Current Subjective Patient agrees to PT. Mental Status Patient Orientation: Normal For Age Attachments: Oxygen Transfers SCALE: Activities may be completed with or without assistive devices. 6-Ralxapwivx-cilzdhm completes the activity by him/herself with no assistance from a helper. 5-Set-up or Clean-up Assistance-helper sets up or cleans up; patient completes activity. [place] assists only prior to or following the activity. 4-Supervision or Touching Assistance-helper provides verbal cues and/or touching/steadying and/or contact guard assistance as patient completes activity. Assistance may be provided throughout the activity or intermittently. 3-Partial/Moderate Assistance-helper does LESS THAN HALF the effort. [place] lifts, holds or supports trunk or limbs, but provides less than half the effort. 2-Substantial/Maximal Assistance-helper does MORE THAN HALF the effort. [place] lifts or holds trunk or limbs and provides more than half the effort. 1-Taydwsfxj-xsqhcr does ALL the effort. Patient does none of the effort to complete the activity. Or, the assistance of 2 or more helpers is required for the patient to complete the activity. If activity was not attempted, code reason: 7-Patient Refused. 9-Not Applicable-not attempted and the patient did not perform the activity before the current illness, exacerbation or injury. 10-Not Attempted due to Environmental Limitations-(lack of equipment, weather restraints, etc.). 88-Not Attempted due to Medical Conditions or Safety Concerns. Roll Left & Right (QC): 3 Lying to Sitting/Side of Bed(Q: 3 Sit to Stand (QC): 3 Chair/Fbt-cm-Rcgvs Xfer(QC): 3 Gait Training Does the Patient Walk?: Yes Distance: 15' Walk 10 feet (QC): 2 Walk 50 ft with 2 Turns(QC): 88 Walk 150 ft (QC): 88 Walking 10ft/uneven surface-QC: 88 Gait Assistive Device: FWW severe trunk flexed posture with FWW use with PT (gait belt) to assist in maintaining Assessment Increase SOA with minimal activity. VC's for body placement in FWW and to safely attain sit in recliner from standing position due to fatigue/weakness PT Boom Boss Goals Boom Boss Goals PT Fdc Goals Time Frame: May 20, 2021 Roll Left & Right (QC): 6 Sit to Lying (QC): 6 Lying-Sitting on Side/Bed(QC): 6 Sit to Stand (QC): 6 Chair/Kau-yj-Rzugi Xfer(QC): 6 Toilet Transfer (QC): 6 Car Transfer (QC): 6 Does the Patient Walk: Yes Walk 10 feet (QC): 6 Walk 50ft with 2 Turns (QC): 6 Walk 150 ft (QC): 6 Walking 10ft on Uneven Surface: 6 1 Step (curb) (QC): 5 4 Steps (QC): 9 12 Steps (QC): 9 Picking up an Object (QC): 88 Wheel 50 feet with 2 turns (QC: 9 Wheel 150 feet: 9 PT Plan Treatment/Plan Treatment Plan: Continue Plan of Care Treatment Plan: Gait, Safety, Therapeutic Exercise, Transfers Treatment Duration: May 20, 2021 Frequency: 6 times per week Estimated Hrs Per Day: .25 hour per day Time/GCodes Time In: 928 Time Out: 943 Total Billed Treatment Time: 15 Total Billed Treatment 1 visit GT 15 min EDUARD OVIEDO PT May 12, 2021 10:14
[2021-05-12 12:01] VITALS: BP 97/78
--- NOTE | 2021-05-12 14:05 | Occupational Ther Daily Note ---
OT Current Status-Daily Note Subjective Pt laying in bed, agreeable to OT tx Mental Status/Objective Patient Orientation: Person, Place, Situation ADL-Treatment Therapy Code Descriptions/Definitions Functional [place] Measure: 0=Not Assessed/NA 4=Minimal Assistance 1=Total Assistance 5=Supervision or Setup 2=Maximal Assistance 6=Modified Levy 3=Moderate Assistance 7=Complete IndependenceSCALE: Activities may be completed with or without assistive devices. 2-Emkxvqnxhr-qzunwgb completes the activity by him/herself with no assistance from a helper. 5-Set-up or Clean-up Assistance-helper sets up or cleans up; patient completes activity. [place] assists only prior to or following the activity. 4-Supervision or Touching Assistance-helper provides verbal cues and/or touching/steadying and/or contact guard assistance as patient completes activity. Assistance may be provided throughout the activity or intermittently. 3-Partial/Moderate Assistance-helper does LESS THAN HALF the effort. [place] lifts, holds or supports trunk or limbs, but provides less than half the effort. 2-Substantial/Maximal Assistance-helper does MORE THAN HALF the effort. [place] lifts or holds trunk or limbs and provides more than half the effort. 4-Qxgdhkebp-[place] does ALL the effort. Patient does none of the effort to complete the activity. Or, the assistance of 2 or more helpers is required for the patient to complete the activity. If activity was not attempted, code reason: 7-Patient Refused. 9-Not Applicable-not attempted and the patient did not perform the activity before the current illness, exacerbation or injury. 10-Not Attempted due to Environmental Limitations-(lack of equipment, weather restraints, etc.). 88-Not Attempted due to Medical Conditions or Safety Concerns. Eating (QC): 6 (Per pt report) Oral Hygiene (QC): 3 (Mod A with brushing dentures.) Shower/Bathe Self (QC): 3 (Pt able to wash BUEs, chest/abdomen and periare. Min A sitting balance at EOB. Assist to wash BLEs and buttocks.) Upper Body Dressing (QC): 3 (Min A with changing gown) Lower Body Dressing (QC): 10 (LE clothing not available) On/Off Footwear: 1 (Assist doffing gripper socks.) Toileting Hygiene (QC): 2 (Assist washing buttocks, pt able to complete pericare) Other Treatment Pt laying in bed, transferred supine to sit EOB, min-mod A. Pt completed sponge bath at EOB, min A to maintain sitting balance. He changed hospital gown, then transferred supine to complete LE bathing. Pt able to remove dentures and place in cup to soak. OT assisted with brushing dentures. Post tx, pt laying in bed, call light in reach and all needs met. Education OT Patient Education: Correct positioning, Energy conservation, Exercise program, Modified ADL techniques, Progress toward Goal/Update tx plan, Purpose of tx/functional activities Teaching Recipient: Patient Teaching Methods: Discussion Response to Teaching: Verbalize Understanding OT Material Disposition Inspector Goals Material Disposition Inspector Goals Time Frame: May 20, 2021 Eating (QC): 5 Oral Hygiene (QC): 5 Toileting Hygiene (QC): 4 Shower/Bathe Self (QC): 4 Upper Body Dressing (QC): 5 Lower Body Dressing (QC): 4 On/Off Footwear (QC): 4 Additional Goals: 1-Demonstrate ADL Tasks, 2-Verbalize Understanding, 3- ImproveStrength/[place] 1=Demonstrate adherence to instructed precautions during ADL tasks. 2=Patient will verbalize/demonstrate understanding of assistive devices/modifications for ADL. 3=Patient will improve strength/tolerance for activity to enable patient to perform ADL's. OT Education/Plan Problem List/Assessment Assessment: Decreased Activ Tolerance, Decreased UE Strength, Impaired Bed Mobility, Impaired Funct Balance, Impaired I ADL's, Impaired Self-Care Skills Discharge Recommendations Plan/Recommendations: Continue POC Treatment Plan/Plan of Care Patient would benefit from OT for education, treatment and training to promote independence in ADL's, mobility, safety and/or upper extremity function for ADL 's. Plan of Care: ADL Retraining, Functional Mobility, UE Funct Exercise/Act Treatment Duration: May 20, 2021 Frequency: 5 times per week Estimated Hrs Per Day: .25 hour per day Rehab Potential: Good Time/GCodes Start Time: 13:15 Stop Time: 13:34 Total Time Billed (hr/min): 19 Billed Treatment Time 1, ADL KARLA ROJAS OT May 12, 2021 14:05
--- NOTE | 2021-05-12 14:44 | Therapy Team Discharge Summary ---
Therapy Discharge Summary Discharge Recommendations Date of Discharge Physical Therapy Patient Evaluated for SW status 05/11/21. Patient seen x 2 sessions. Patient able to ambulate with FWW 15' at max to mod assist and requires minimal assist with bed mobility and transfers. Patient continues with increase SOA with minimal activity. Patient to dismiss to facility on this date per report. PT to continue. Occupational Therapy Decreased Activ Tolerance, Decreased UE Strength, Impaired Bed Mobility, Impaired Funct Balance, Impaired I ADL's, Impaired Self-Care Skills PT Outpatient Phlebotomist Goals Longterm Goals PT Outpatient Phlebotomist Goals Time Frame: May 20, 2021 Roll Left to Right (QC): 6 Sit to Lying (QC): 6 Lying-Sitting on Side/Bed(QC): 6 Sit to Stand (QC): 6 Chair/Vmj-mr-Jgefo Xfer(QC): 6 Car Transfer (QC): 6 Does the Patient Walk: Yes Walk 10 feet (QC): 6 Walk 10ft-Uneven Surface(QC): 6 Walk 50ft with 2 Turns (QC): 6 Walk 150 ft (QC): 6 Wheel 50 feet with 2 turns (QC: 9 1 Step (curb) (QC): 5 4 Steps (QC): 9 12 Steps (QC): 9 Picking up an Object (QC): 88 OT Outpatient Phlebotomist Goals Longterm Goals Time Frame: May 20, 2021 Eating (QC): 5 Oral Hygiene (QC): 5 Shower/Bathe Self (QC): 4 Upper Body Dressing (QC): 5 Lower Body Dressing (QC): 4 On/Off Footwear (QC): 4 Toileting Hygiene (QC): 4 Toilet/Commode Transfer (QC): 6 Additional Goals: 1-Demonstrate ADL Tasks, 2-Verbalize Understanding, 3- ImproveStrength/Palmer 1=Demonstrate adherence to instructed precautions during ADL tasks. 2=Patient will verbalize/demonstrate understanding of assistive devices/modifications for ADL. 3=Patient will improve strength/tolerance for activity to enable patient to perform ADL's. EDUARD OVIEDO PT May 12, 2021 14:44
--- NOTE | 2021-05-13 13:58 | Therapy Team Discharge Summary ---
Therapy Discharge Summary Discharge Recommendations Date of Discharge May 12, 2021 at 15:00 Occupational Therapy Pt admitted to [facility] with PNA, COPD, CAD. At OF, pt was independent with ADLs and functional mobility, no AD. Upon initial evaluation, pt refused eating, required max A showering, mod A upper body dressing, total assist footwear and total assist toileting. Oral care and lower body dressing no complete due to medical condition/safety concern. OT txs focused on increasing BUE strength and activity tolerance, and increasing safety and independence with ADLs and functional mobility. At discharge, pt independent with eating, mod A oral care, min A shower and oral care, total assist footwear and max A toileting. Lower body dressing not complete due to lack of equipment. Pt made functional progress towards goals, but only attained eating goal. Pt discharged from facility, d/c from OT Decreased Activ Tolerance, Decreased UE Strength, Impaired Bed Mobility, Impaired Funct Balance, Impaired I ADL's, Impaired Self-Care Skills PT Tank Car Loader Goals Intermediate Goals PT Intermediate Goals Time Frame: May 20, 2021 Roll Left to Right (QC): 6 Sit to Lying (QC): 6 Lying-Sitting on Side/Bed(QC): 6 Sit to Stand (QC): 6 Chair/Gga-hl-Yuxru Xfer(QC): 6 Car Transfer (QC): 6 Does the Patient Walk: Yes Walk 10 feet (QC): 6 Walk 10ft-Uneven Surface(QC): 6 Walk 50ft with 2 Turns (QC): 6 Walk 150 ft (QC): 6 Wheel 50 feet with 2 turns (QC: 9 1 Step (curb) (QC): 5 4 Steps (QC): 9 12 Steps (QC): 9 Picking up an Object (QC): 88 OT Tank Car Loader Goals Tank Car Loader Goals Time Frame: May 20, 2021 Eating (QC): 5 (met) Oral Hygiene (QC): 5 (not met) Shower/Bathe Self (QC): 4 (not met) Upper Body Dressing (QC): 5 (not met) Lower Body Dressing (QC): 4 (not met) On/Off Footwear (QC): 4 (not met) Toileting Hygiene (QC): 4 (not met) Toilet/Commode Transfer (QC): 6 Additional Goals: 1-Demonstrate ADL Tasks, 2-Verbalize Understanding, 3- ImproveStrength/Palmer 1=Demonstrate adherence to instructed precautions during ADL tasks. 2=Patient will verbalize/demonstrate understanding of assistive devices/modifications for ADL. 3=Patient will improve strength/tolerance for activity to enable patient to perform ADL's. KARLA ROJAS OT May 13, 2021 13:58
--- NOTE | 2021-05-13 14:10 | Discharge Summary ---
Diagnosis/Chief Complaint Date of Admission May 04, 2021 at 12:46 Date of Discharge May 12, 2021 at 15:00 Discharge Date: May 12, 2021 Discharge Diagnosis 1. Acute on Chronic Respiratory Failure--on NC during day and using BIPAP q HS and prn, DC to SNF 2. Acute Anemia--S/P transfusion of 1u pRBCs, H/H up to 9.9/31 3. Bilateral Pneumonia with Sepsis and history of MRSA--Vanc and Zosyn finished, CXR improved 4. COPD with acute exacerbation--improved on IV solumedrol, SVNs with duoneb and advair and incruse inhalers 5. Diabetes mellitus with some hypoglycemia until appetite improved--increase levemir to 20u and continue SSI 6. Pulmonary Vascular Congestion/Acute Combined Diastolic and Systolic CHF--CXR and BNP improving 7. Generalized Weakness/Debility--to SNF to work with PT/OT 8. Hypertension--stable 9. Recent NonSTEMI with stent placement 10. Paroxysmal atrial fibrillation Discharge Summary Hospital Course Was the Problem List Reviewed?: Yes Hospital Course This is a 80 year old male with 2 recent admissions for sepsis, respiratory failure and acute NonSTEMI with atrial fibrillation. He presented to the emergency room with acute respiratory failure. He was placed on BIPAP and was found to have pneumonia with sepsis. He was treated with Vancomycin due to his history of MRSA. He was also given IV solumedrol and continue on plavix and aspirin. There was difficulty getting him weaned off of BIPAP due to his ongoing respiratory failure. He was able to tolerate Vapotherm for short periods but then had to go back on the BIPAP. Hospice was discussed with both the patient and the family. He was transferred to SWING bed to continue medical management and start therapies for strengthening with hopes of getting him to a SNF. His CXR showed ongoing infiltrates so zosyn was added to his vancomycin. His CXR also showed pulmonary edema and his BNP was elevated so he was given IV lasix and potassium. His hemoglobin also dropped below 8 so he was given a unit of blood due to his cardiac status. Following these therapies, he was able to be weaned to a nasal cannula during the day with BIPAP at night. The 2 days prior to discharge he had started working with both OT and PT. His appetite also improved. We once again discussed hospice but the patient was feeling better from a respiratory status just very weak so we opted for admission to the SNF at [facility] for strengthening. We did discuss that if he had another acute episode of respiratory failure that we would go with hospice. His antibiotics had finished by his time of discharge and his CXR was much improved. His BNP had came down and his H/H had stabilized at 9.9/31. His solumedrol had been weaned and he will be sent home on an oral prednisone taper. He will be on oxygen via [place] at 5Liters with BIPAP at night. He will follow up with me in 2 weeks. Labs Laboratory Tests 05/10/21 16:51: Glucometer 182H 05/10/21 20:11: Glucometer 232H 05/10/21 22:40: Glucometer 176H 05/11/21 05:00: Red Blood Count 3.35L, Hemoglobin 9.9L, Hematocrit 31L, Red Cell Distribution Width 15.4H, Platelet Count 117L, Chloride Level 97L, Blood Urea Nitrogen 21H, Glucose Level 261H, Calcium Level 7.8L, B-Type Natriuretic Peptide 754.5H 05/11/21 05:11: Glucometer 236H 05/11/21 10:31: Glucometer 194H 05/11/21 16:04: Glucometer 263H 05/11/21 20:57: Glucometer 247H 05/12/21 05:31: 05/12/21 10:19: Glucometer 166H Procedures None. Discharge Physical Examination Allergies: Coded Allergies: hydrocodone (Verified Adverse Reaction, Mild, NAUSEA, 04/19/21) oxycodone (Verified Adverse Reaction, Mild, NAUSEA, 04/19/21) Vitals & I&Os Vital Signs Date Time Temp Pulse Resp B/P (MAP) Pulse Ox O2 Delivery O2 Flow Rate FiO2 05/12/21 15:07 05/12/21 14:01 92 High Flow N/C 5.00 05/12/21 12:01 37.7 77 20 05/09/21 10:58 50 General Appearance: Alert, Oriented X3, No Acute Distress Respiratory: Clear to Auscultation (decreased aeration) Cardiovascular: Regular Rate Abdominal: Normal Bowel Sounds, Soft, No Tenderness Neuro: Other (weakness) Psych/Mental Status: Mental Status NL, Mood NL Discharge Home Medications Reviewed and agree with Discharge Medication list on patient's Discharge Instruction sheet Instructions to Patient/Family Please see electronic discharge instructions given to patient. YVETTE JACKMAN DO May 13, 2021 14:10
== END 2021-05-12 15:00 | DRG 189 ==
LOC: 4TH 12:46
PROVIDERS: ADMIT Family Medicine; ATTEND Family Medicine
PROC: 5A09557 Assistance with Respiratory Ventilation, Greater than 96 Consecutive Hours, Continuous Positive Airway Pressure (ICD-10-PCS; principal; 2021-05-04)
DX: J96.20 Acute and chronic respiratory failure, unspecified whether with hypoxia or hypercapnia (principal); J18.9 Pneumonia, unspecified organism; I21.4 Non-ST elevation (NSTEMI) myocardial infarction; I50.41 Acute combined systolic (congestive) and diastolic (congestive) heart failure; J44.0 Chronic obstructive pulmonary disease with (acute) lower respiratory infection; J44.1 Chronic obstructive pulmonary disease with (acute) exacerbation; D64.9 Anemia, unspecified; I11.0 Hypertensive heart disease with heart failure; Z66 Do not resuscitate; E11.65 Type 2 diabetes mellitus with hyperglycemia; I48.0 Paroxysmal atrial fibrillation; E11.649 Type 2 diabetes mellitus with hypoglycemia without coma; Z79.4 Long term (current) use of insulin; Z95.5 Presence of coronary angioplasty implant and graft
CPT/HCPCS: 36415; 71045; 80048; 80053; 80202; 82947; 83735; 83880; 85014; 85018; 85027; 86850; 86900; 86901; 86920; 94640; 94660; 94760

== ENCOUNTER 2021-05-13 09:46 | Emergency (ER) | payer MEDICARE ==
[~2021-05-13] VITALS: Ht 182 cm; Wt 77.0 kg
[~2021-05-13 09:46] MED LIST changes: +FURO40TA4 PO; +LOSA50TA63 PO; +POTA20TA8 PO
[2021-05-13] MEDS ORDERED: LORazepam 0.5 MG (ATIVAN) TABLET PO STA (10:02)
[2021-05-13] MEDS ORDERED: morphine INJ 10 MG/ML 1ML (SYR OR VIAL) IM ONE (10:15)
--- NOTE | 2021-05-13 10:15 | ED General ---
General Stated Complaint: RESP FAILURE Source of Information: EMS, Family, Old Records History of Present Illness Date Seen by Provider: May 13, 2021 Time Seen by Provider: 09:47 Initial Comments This 80-year-old gentleman presents to the emergency room from [facility] where he was found unresponsive. He experienced a fall yesterday and has extensive bruising. He has known severe COPD and has a DO NOT RESUSCITATE status. Upon arrival he is hypotensive, tachycardic, febrile, and unresponsive with agonal breathing about 5 or 6 breaths/min. Oxygen saturation is unmeasurable. Documentation of DNR is available. Family concurs with DNR. Allergies and Home Medications Allergies Coded Allergies: hydrocodone (Verified Adverse Reaction, Mild, NAUSEA, 04/19/21) oxycodone (Verified Adverse Reaction, Mild, NAUSEA, 04/19/21) Home Medications Albuterol Sulfate 18 Gm Hfa.aer.ad, 1-2 PUFF INH Q6H PRN for SHORTNESS OF B REATH, (Reported) Apixaban 5 Mg Tablet, 5 MG PO BID Prescribed by: TRENT MENDEZ on 04/25/21 1141 Budesonide/Formoterol Fumarate 10.2 Gm Hfa.aer.ad, 2 PUFF IH BID, (Reported) Calcium Carbonate 500 Mg Tablet, 500 MG PO DAILY, (Reported) Carbidopa/Levodopa 1 Each Tablet.er, 1 TAB PO TID, (Reported) Cholecalciferol (Vitamin D3) 25 Mcg Capsule, 25 MCG PO DAILY, (Reported) Clopidogrel Bisulfate 75 Mg Tablet, 75 MG PO DAILY Prescribed by: TRENT MENDEZ on 04/25/21 1139 Cyanocobalamin (Vitamin B-12) 50 Mcg Tablet, 50 MCG PO DAILY, (Reported) Furosemide 40 Mg Tablet, 40 MG PO DAILY Prescribed by: YVETTE JACKMAN on 05/11/21 0842 Gabapentin 600 Mg Tablet, 600 MG PO HS, (Reported) Guaifenesin 600 Mg Tab.er.12h, 600 MG PO BID PRN for CONGESTION Prescribed by: YVETTE JACKMAN on 05/11/21 0842 Hydrocodone Bit/Acetaminophen 1 Ea Tab, 1 EA PO Q4H PRN for PAIN-MODERATE (5-7) Prescribed by: YVETTE JACKMAN on 05/11/21 08 Hydrocodone/Acetaminophen 1 Each Tablet, 1 EA PO Q4H PRN for PAIN-MODERATE (5-7), (Reported) Insulin Detemir 100 Unit/1 Ml Insuln.pen, 20 UNIT SQ HS, (Reported) Isosorbide Mononitrate 30 Mg Tab.er.24h, 30 MG PO DAILY, (Reported) Losartan Potassium 50 Mg Tablet, 50 MG PO DAILY Prescribed by: YVETTE JACKMAN on 05/11/21 0842 Melatonin 3 Mg Tablet, 3-6 MG PO HS PRN for SLEEP, (Reported) Mirtazapine 15 Mg Tablet, 15 MG PO HS, (Reported) Montelukast Sodium 10 Mg Tablet, 10 MG PO DAILY, (Reported) Pantoprazole Sodium 40 Mg Tablet.dr, 40 MG PO DAILY, (Reported) Potassium Chloride 20 Meq Tab.er.prt, 20 MEQ PO DAILY Prescribed by: YVETTE JACKMAN on 05/11/21 0842 Prednisone 20 Mg Tab, 20 MG PO DAILY Take 3 tabs(60mg)daily for 3 days then 2 tabs daily for 3 days then 1 tab daily for 3 days Prescribed by: YVETTE JACKMAN on 04/22/21 1008 Rosuvastatin Calcium 20 Mg Tablet, 40 MG PO HS Prescribed by: YVETTE JACKMAN on 04/25/21 0839 Sennosides/Docusate Sodium 1 Each Tablet, 1 EA PO BID Prescribed by: YVETTE JACKMAN on 05/11/21 0842 Silver Sulfadiazine 50 Gm Cream..g., 1 APPLIC TP BID, (Reported) Tiotropium [place] 4 Gm Mist.inhal, 2 PUFF INH DAILY, (Reported) Venlafaxine HCl 150 Mg Cap.er.24h, 150 MG PO DAILY, (Reported) Patient Home Medication List Home Medication List Reviewed: Yes Review of Systems Review of Systems Constitutional: see HPI EENTM: no symptoms reported Respiratory: see HPI Cardiovascular: see HPI Gastrointestinal: no symptoms reported Genitourinary: no symptoms reported Musculoskeletal: see HPI Skin: see HPI Psychiatric/Neurological: See HPI Hematologic/Lymphatic: No Symptoms Reported Immunological/Allergic: no symptoms reported Past Tjfelau-Xwrtxq-Eojhku Hx Patient Social History Tobacco Use?: No Immunizations Up To Date Tetanus Booster (TDap): Unknown PED Vaccines UTD: No Seasonal Allergies Seasonal Allergies: No Past Medical History Surgery/Hospitalization HX: stents placed about 12/12 Surgeries: Yes Cardiac, CABG, Orthopedic Respiratory: Yes Sleep Apnea, COPD Currently Using CPAP: Yes Currently Using BIPAP: No Cardiac: Yes Coronary Artery Disease, High Cholesterol, Hypertension Neurological: Yes Parkinson's Disease Reproductive Disorders: No Sexually Transmitted Disease: No HIV/AIDS: No Genitourinary: Yes Benign Prostatic Hyperpl Gastrointestinal: Yes Gastroesophageal Reflux Musculoskeletal: Yes Arthritis Endocrine: Yes Diabetes, Insulin dep HEENT: Yes Cataract Loss of Vision: Bilateral Hearing Impairment: Hard of Hearing Cancer: Yes (Facial) Skin Did You Recieve Any Treatments: Yes What Type of Treatment Did You: Radiation Psychosocial: Yes Anxiety Integumentary: No Eczema Blood Disorders: No Adverse Reaction/Blood Tranf: No Family Medical History Cancer 09 BROTHER Cancer of colon 09 BROTHER Cataract 03 MOTHER Chest pain 03 MOTHER Congenital heart disease 03 FATHER Congestive heart failure 03 FATHER Family history: Cardiovascular disease 03 FATHER 03 MOTHER Family history: Diabetes mellitus 03 FATHER Family history: Gastrointestinal disease 03 MOTHER Family history: Hypertension 03 MOTHER Hearing loss 03 FATHER Heart disease 03 FATHER History of - respiratory disease 03 FATHER Kidney disease 03 FATHER Myocardial infarction 03 FATHER Stroke 03 FATHER No Family History of: Abdominal aortic aneurysm Jae's disease Alcoholism Aphasia Cystic fibrosis Dementia Dysphagia Family history: Allergy Family history: Alzheimer's disease Family history: Arthritis Family history: Asthma Family history: Breast disease Family history: Coronary thrombosis Family history: Glaucoma Family history: Osteoporosis Family history: Thyroid disorder Headache Hereditary disease History of - anemia History of - disorder History of drug abuse Human immunodeficiency virus (HIV) seropositivity Hypercholesterolemia Infertile Malignant neoplasm of lung Parkinson's disease Prostate cancer Psychotic disorder Seizure disorder Tuberculosis Visual impairment Heart Disease, Cancer, Diabetes, Hypertension LONG HISTORY OF NON-COMPLIANCE PT IS DNR/DNI, VERBAL PER PT ON 04/18/21 Physical Exam Vital Signs Capillary Refill : Height, Weight, BMI Height: 6'0.00" Weight: 204lbs. 9.0oz. [id number]; 23.24 BMI Method:Stated General Appearance: WD/WN, Other (Agonal breathing, cool, cyanotic) HEENT: Other (Skin erosions on the right ear, scattered bruising) Neck: Normal Inspection Respiratory: Other (Agonal breathing) Cardiovascular: No Edema, Tachycardia Gastrointestinal: No Distended Extremity: No Pedal Edema, Other (Cyanotic) Neurologic/Psychiatric: Other (Unresponsive with agonal breathing) Skin: Cool, Cyanosis, Mottled Progress/Results/Core Measures Suspected Sepsis SIRS Temperature: Pulse: Respiratory Rate: Blood Pressure / Mean: Results/Orders Lab Results Laboratory Tests Test 05/13/21 09:54 Range/Units Glucometer 117 H 70-110 MG/DL My Orders Orders - DEACON RIBEIRO MD Lorazepam Tablet (Ativan Tablet) (05/13/21 10:02) Morphine Injection (Morphine Injection (05/13/21 10:15) Vital Signs/I&O Capillary Refill : Progress Note : Time: 10:16 Progress Note Patient was seen and examined immediately upon arrival. He was tachycardic, hypotensive, febrile, unresponsive, and cyanotic. I was discussing options with the family and we employed Dr. JACKMAN's assistance as well as Ramiro DEGROOT (palliative home health caregiver) assistance with making decisions. Patient was well- known to both of these staff members. After seeing the patient and discussing with family, everyone was in agreement that comfort care should be pursued. Patient was given Ativan and oxygen was removed. Patient experienced ventricular tachycardia followed by atrial fibrillation followed by asystole. Respirations ceased and was pronounced at 10:11. Certified Prosthetist services were notified. Because patient was febrile, PPE was observed for all family members in the room. Departure Impression Primary Impression: Acute on chronic respiratory failure Qualified Codes: J96.20 - Acute and chronic respiratory failure, unspecified whether with hypoxia or hypercapnia Additional Impressions: Cardiac arrest Fall on same level Qualified Codes: W18.30XA - Fall on same level, unspecified, initial encounter Disposition: 20 Condition: Departure-Patient Inst. Referrals: YVETTE JACKMAN DO (PCP/Family) Primary Care Physician DEACON RIBEIRO MD May 13, 2021 10:15
[2021-05-13 12:00] VITALS: BP 0/0
== END 2021-05-13 12:00 | disposition expired ==
LOC: EDUNIT# 09:46 → ER 09:47
DX: J96.20 Acute and chronic respiratory failure, unspecified whether with hypoxia or hypercapnia (principal); I46.9 Cardiac arrest, cause unspecified; G47.30 Sleep apnea, unspecified; J44.9 Chronic obstructive pulmonary disease, unspecified; I10 Essential (primary) hypertension; G20 Parkinson's disease; E78.00 Pure hypercholesterolemia, unspecified; I25.10 Atherosclerotic heart disease of native coronary artery without angina pectoris; K21.9 Gastro-esophageal reflux disease without esophagitis; F41.9 Anxiety disorder, unspecified; E11.9 Type 2 diabetes mellitus without complications; Z95.1 Presence of aortocoronary bypass graft; Z95.5 Presence of coronary angioplasty implant and graft; Z79.01 Long term (current) use of anticoagulants; Z79.52 Long term (current) use of systemic steroids; Z79.4 Long term (current) use of insulin; Z79.899 Other long term (current) drug therapy
CPT/HCPCS: 82947